=== PATIENT | male | born 1965 | race Caucasian/White ===

== ENCOUNTER 2018-08-05 12:09 | Inpatient (IN) | payer BC, SELFPAY ==
[2018-08-05] VITALS (50 sets, daily range): BP systolic 155–211; BP diastolic 67–98; PULSE 60–88; RESP 9–27; TEMP 36–36.5; O2SAT 79–99
--- NOTE | 2018-08-05 12:53 | W.ED.GENAD ---
Discharge Plan Disposition Patient Disposition: [facility] INPATIENT Condition: Stable Discharge Details Chief Complaint: Nk/Back Pain Clinical Impression: Intractable back pain, Intractable nausea and vomiting, Chronic kidney disease, Hyperglycemia, Dehydration Reason For Visit: SCIATICA, HYPERLYCEMIA Admit Date/Time: 08/05/18 18:36 Admit Provider: Hugh Love Attending Provider: Hugh Love Primary Care Provider: Adeola Villegas ED Provider: Donna Barba Discharge Data Discharge Date/Time-TO BE ENTERED AT DEPARTURE: 08/05/18 19:55 Medical Decision Making 52-year-old male with a history of diabetes with neuropathy, lumbar [place] [address] Mathews, history of sciatica, who presents left sided sciatica for the past 3 weeks after pulling on a post at home, getting progressively worse. Pain now worse in left calf. No cauda equina symptoms. He also admits to vomiting over the past few days due to pain. No relief with muscle relaxers, oxycodone, steroids after seen by PCP and at [facility]. Blood pressure hypertensive, 198/94. Has not taken his blood pressure medications today. May also be elevated due to pain. Remainder vitals within normal limits. Patient appears moderately uncomfortable due to pain. He has no focal deficits. He is neurovascularly intact. Differential diagnosis includes sciatica, musculoskeletal strain. Concern is also possible DKA, or HHNK due to persistent vomiting and not taking his diabetes medications. Glucose per EMS read as high, glucose here in ED read as high. Will place an IV, bolus IV fluids, morphine, Compazine, Valium p.o and will check screening labs of CBC, CMP, urinalysis. We will also check left lower extremity ultrasound due to worsening left calf pain, although I suspect this is likely from the sciatica and not a DVT. 1335 -- Labs reviewed -sodium 132, bicarb 26.1, anion gap 9, BUN 77, creatinine 3.79, glucose 751, urinalysis notes 300 protein and 1000 glucose and greater than 15 ketones. Will give 7 units insulin IV. BP still elevated at 199/91. Will give his daily dose of amlodipine. 1520 -- Pt states he had relief of pain with morphine/valium but pain returned after movement in radiology. Doppler ultrasound negative for DVT. We will give a dose of Dilaudid. 1650 -- Pt states he feels much better and is requesting to go home. We will recheck a BMP as accucheck after 1st liter still read as high. Pt received 2 Liters IVF. Pt is also requesting food. 173 --patient states with any movement, he becomes nauseous and has significant pain. Patient now states he feels like he cannot go home. Will give another dose of Compazine and Dilaudid. Will admit for pain control and intractable nausea. Repeat BMP glucose 491, Cr 3.38. 174 -- D/w Dr. Love - accepts pt for admission. HPI General Mode of arrival: EMS. Date/Time Provider Initiated Documentation: 08/05/18 12:26. Limitations to Documentation: no limitations. Information obtained by: patient. HPI Narrative: Patient is a 52-year-old male who presents to the ED with a complaint of sciatica pain on L side x 3 weeks since pulling on a post at home. Patient states the pain is in his left lower back, left buttock and radiates to his L leg. Pt states the L calf pain is now bothering him the most. Pt has been seen at PCP office by Dr. Greer last week and was given an unknown muscle relaxer without relief. Pt states he then was seen at [facility] last week for same and was given prednisone, oxycodone, and methacarbamol w/o relief. Pt states he has been vomiting up to 6x times for the past 2-3 days and has been unable to keep down most of his meds. Pt states he has had decreased appetite and has not taken his insulin for a few days. Glucose per EMS read as high. States he has not taken any of his regular meds today. He denies known fever, chest pain, shortness of breath, cough, abdominal pain, diarrhea, urinary or fecal incontinence, or leg weakness. Patient states he was able to ambulate to the bathroom today but with pain in his left leg. He does admit to a history of chronic neuropathy from his diabetes but states this is no worse than usual. He does also admit to urinary frequency. Also states that there is a plan for an MRI lumbar spine due to his history of previous back pain/surgery and now persistent left leg pain for the past [address] Cody through Adeola Villegas. Past medical history: DM, HTN, DM neuropathy, Chronic kidney disease Stage III - plan for possible renal transplant - next appointment with [facility] 09/16/18 to discuss Surgical history: Appendectomy, Cholecystectomy, Shoulder surgery, Lumbar fusion [address] Mathews Social history: Quit tobacco 3 weeks ago, Daily marijuana, Occasional alcohol use Meds: See list Allergies: See list PCP: Adeola Villegas Related Data Home Medications Medication Instructions Recorded Confirmed insulin syringe-needle U-100 [BD 03/21/13 02/02/18 Insulin Syringe] blood-glucose meter [FreeStyle #1 kit 03/24/13 Lite Meter] pen needle, diabetic #180 unit 03/24/13 lancets #300 ea 08/08/13 insulin aspart U-100 [Novolog 5 - 20 unit SQ DIRECTED #3 pen 10/19/13 Flexpen U-100 Insulin] insulin glargine [Lantus Solostar 45 unit SQ HS #3 pen 10/19/13 U-100 Insulin] lisinopril 10 mg PO DAILY #90 tab-cap 10/19/13 metformin 500 mg PO DAILY 08/27/15 02/02/18 pregabalin [Lyrica] 200 mg PO BID 08/27/15 08/05/18 furosemide 40 mg PO DAILY 07/30/17 08/05/18 amlodipine 10 mg PO DAILY 08/05/18 08/05/18 aspirin 81 mg PO DAILY 08/05/18 08/05/18 ferrous sulfate 650 mg PO DAILY 08/05/18 08/05/18 insulin detemir U-100 [Levemir 55 units SUBCUT HS 08/05/18 08/05/18 FlexTouch U-100 Insuln] methocarbamol 750 mg PO QID 08/05/18 08/05/18 prednisone 1 - 3 tab PO DIRECTED 08/05/18 08/05/18 Allergies Allergy/AdvReac Type Severity Reaction Status Date / Time clindamycin Allergy Mild HIVES Unverified 08/05/18 12:18 Penicillins Allergy Mild Unverified 08/05/18 12:18 sertraline AdvReac Mild Nausea Unverified 08/05/18 12:18 gabapentin AdvReac ANKLE EDEMA Unverified 08/05/18 12:18 General Stated Complaint: Nk/Back Pain MONIKA: 3 Review of Systems Review of Systems All systems reviewed & are unremarkable except as noted in HPI and below Constitutional Denies chills, Denies excessive sweating, Denies fatigue, Denies fever(s), Reports weakness and Denies weight loss Eyes Reports system reviewed and no additional complaints, except as docu and Denies blurry vision ENT Denies vertigo, Denies dizziness, Denies otalgia, Denies nasal congestion, Denies sore throat and Denies throat swelling Cardiovascular Denies chest pain, Denies syncope, Denies rapid heart rate and Denies dyspnea Respiratory Denies dyspnea Gastrointestinal Denies abdominal pain, Denies diarrhea and Reports vomiting Genitourinary Denies hematuria, Denies dysuria and Denies flank pain Musculoskeletal Reports back pain and Denies joint swelling Integumentary/Breasts Denies lesions and Denies rash Neurologic Denies behavioral changes, Denies confusion, Denies vertigo, Denies dizziness, Denies syncope and Reports weakness Psychiatric Denies behavioral changes, Denies confusion and Denies depression Endocrine Denies excessive sweating and Denies fatigue Hematologic/Lymphatic Denies easy bruising and Denies lymphadenopathy Allergic/Immunologic Denies throat swelling [facility] Medical History Chronic Kidney disease stage 3 Social History Smoking/Tobacco Use Status: Current-Occasional Surgical History Cholecystectomy Colonoscopy - MAC (10/08/16) Exam Const General: cooperative, healthy appearing and uncomfortable (moderately) Orientation: alert, awake and oriented x3 HENMT Head: normal to inspection Ears: hearing grossly normal bilaterally and external ears normal General nose exam: external nose normal Face and sinus: normal facial exam Mouth: mucous membranes dry Teeth and gingiva: dentition normal Throat: posterior oropharynx normal Eyes General: appearance normal, both eyes and all related structures Eyelids: eyelids normal EOM: EOM intact bilaterally Neck Neck: normal visual inspection Lymphatic: no lymphadenopathy noted Chest Chest: normal inspection of the chest Resp Effort & Inspection: normal respiratory effort and able to speak in complete sentences Auscultation: clear to auscultation bilaterally Cardio Rate: regular rate Rhythm: regular rhythm GI Inspection: normal to inspection Palpation: soft, not firm, no guarding, no hepatosplenomegaly, no masses and nontender Auscultation: normal bowel sounds Back/Spine/Pelvis Back: no CVA tenderness Thoracic/Lumbar Spine: paraspinal tenderness (Left lumbar) and No lumbar spinal tenderness Pelvis: buttock tenderness on the left Sacrum: no ecchymosis and no erythema Coccyx: no swelling Skin General skin exam: no rashes or lesions noted Neuro General: alert and awake Cognition: normal cognition Speech: speech normal Gait: normal gait Motor: muscle tone normal throughout and strength 5/5 throughout Sensory Exam: no sensory deficits noted DTR's: Rt Patellar: 0 (hypoactive), Lt Patellar: 0 (hypoactive), Rt Ankle: 0 (hypoactive) and Lt Ankle: 0 (hypoactive) Plantar Reflexes: Equivocal: bilateral Extrem General: normal to inspection, full ROM and normal capillary refill Psych Appearance: grossly normal Mental Status: mental status grossly normal Speech and Movement: speech and movement normal Affect: normal affect Thought Process: normal Course Laboratory Tests Range/Units 08/05/18 08/05/18 08/05/18 12:40 12:40 12:52 WBC (4.4-10.8) k/cumm 9.31 RBC (4.50-6.00) m/cumm 3.77 L Hgb (13.5-17.5) g/dL 11.3 L Hct (40.0-50.0) % 33.1 L MCV (80-95) fL 87.8 MCH (27.0-33.0) pg 30.0 MCHC (32.0-36.0) g/dL 34.1 RDW (11.8-14.1) % 12.5 Plt Count (130-400) x1000/uL 267 MPV (8.0-11.0) fL 12.1 H Immature Gran % 0.1 Neutrophils % 77.2 Lymphocytes % 13.0 Monocytes % 8.2 Eosinophils % 1.3 Basophils % 0.2 Absolute Neutrophils (1.2-6.7) k/cumm 7.19 H Absolute Lymphocytes (1.2-3.4) k/cumm 1.21 Absolute Monocytes (0.11-0.7) k/cumm 0.76 H Absolute Eosinophils (0.0-0.7) k/cumm 0.12 Absolute Basophils (0.0-0.2) k/cumm 0.02 Sodium (136-145) mmol/L 132 L Potassium (3.5-5.1) mmol/L 4.8 Chloride (98-107) mmol/L 96 L Carbon Dioxide (21.0-32.0) mmol/L 26.1 Anion Gap (3-11) mmol/L 9.9 BUN (7-18) mg/dL 77 H Creatinine (0.70-1.30) mg/dL 3.79 H* Estimated GFR/1.73 m2 (mL/min/1.73m2) 16.93 Glucose (70-100) mg/dL 751 H* Calcium (8.5-10.1) mg/dL 8.7 Total Bilirubin (0.2-1.0) mg/dL 0.4 AST (15-37) U/L 15 ALT (12-78) U/L 52 Alkaline Phosphatase (46-116) U/L 121 H Total Protein (6.4-8.2) g/dL 6.8 Albumin (3.4-5.0) g/dL 2.9 L Urine Color (Yellow) Yellow Urine Clarity Clear Urine pH (5-8) 5.5 Ur Specific [place] (1.005-1.025) 1.010 Urine Protein (Negative) mg/dL >=300 H Urine Ketones (Negative) mg/dL 15 H Urine Blood (Negative) Small H Urine Nitrite (Negative) Negative Urine Bilirubin (Negative) Negative Urine Urobilinogen (Up TO 0.2) EU/dL 0.2 Ur Leukocyte Esterase (Negative) Negative Urine RBC (0-2) 3-5 H Urine WBC (0-5) HPF 0-2 Ur Epithelial Cells (Negative) HPF Rare Urine Crystals (Negative) HPF Negative Urine Bacteria (Negative) HPF Few Urine Casts (Negative) LPF Negative Urine Mucus (Negative) Negative Urine Other (Negative) Negative Ur Culture Indicated? No Urine Glucose (Negative) mg/dL >=1000 H Range/Units 08/05/18 17:00 WBC (4.4-10.8) k/cumm RBC (4.50-6.00) m/cumm Hgb (13.5-17.5) g/dL Hct (40.0-50.0) % MCV (80-95) fL MCH (27.0-33.0) pg MCHC (32.0-36.0) g/dL RDW (11.8-14.1) % Plt Count (130-400) x1000/uL MPV (8.0-11.0) fL Immature Gran % Neutrophils % Lymphocytes % Monocytes % Eosinophils % Basophils % Absolute Neutrophils (1.2-6.7) k/cumm Absolute Lymphocytes (1.2-3.4) k/cumm Absolute Monocytes (0.11-0.7) k/cumm Absolute Eosinophils (0.0-0.7) k/cumm Absolute Basophils (0.0-0.2) k/cumm Sodium (136-145) mmol/L 135 L Potassium (3.5-5.1) mmol/L 4.4 Chloride (98-107) mmol/L 101 Carbon Dioxide (21.0-32.0) mmol/L 27.6 Anion Gap (3-11) mmol/L 6.4 BUN (7-18) mg/dL 71 H Creatinine (0.70-1.30) mg/dL 3.38 H Estimated GFR/1.73 m2 (mL/min/1.73m2) 19.32 Glucose (70-100) mg/dL 491 H D Calcium (8.5-10.1) mg/dL 8.5 Total Bilirubin (0.2-1.0) mg/dL AST (15-37) U/L ALT (12-78) U/L Alkaline Phosphatase (46-116) U/L Total Protein (6.4-8.2) g/dL Albumin (3.4-5.0) g/dL Urine Color (Yellow) Urine Clarity Urine pH (5-8) Ur Specific [place] (1.005-1.025) Urine Protein (Negative) mg/dL Urine Ketones (Negative) mg/dL Urine Blood (Negative) Urine Nitrite (Negative) Urine Bilirubin (Negative) Urine Urobilinogen (Up TO 0.2) EU/dL Ur Leukocyte Esterase (Negative) Urine RBC (0-2) Urine WBC (0-5) HPF Ur Epithelial Cells (Negative) HPF Urine Crystals (Negative) HPF Urine Bacteria (Negative) HPF Urine Casts (Negative) LPF Urine Mucus (Negative) Urine Other (Negative) Ur Culture Indicated? Urine Glucose (Negative) mg/dL Vital Signs Temperature 97.7 F 08/05/18 12:01 Pulse 82 08/05/18 12:01 Respiratory Rate 18 08/05/18 12:01 Blood Pressure 211/91 H 08/05/18 12:01 Pulse Oximetry 98 08/05/18 12:01 Temperature 97.7 F 08/05/18 12:01 Temperature Source Temporal Artery Scan 08/05/18 12:01 Pulse 82 08/05/18 12:01 Respiratory Rate 18 08/05/18 12:01 Respiratory Effort 08/05/18 12:16 Blood Pressure 211/91 H 08/05/18 12:01 Blood Pressure Position Supine 08/05/18 12:01 Pulse Oximetry 98 08/05/18 12:01 Oxygen Delivery Method Room Air 08/05/18 12:01 Oxygen Flow Rate 0 08/05/18 12:01 Pain Level 10 08/05/18 12:01
--- NOTE | 2018-08-05 12:59 | DI.US_ITS ---
SYMPTOMS/DIAGNOSIS: LEFT CALF PAIN X 2 WEEKS, ? DVT LEFT LOWER EXTREMITY ULTRASOUND: The femoral and popliteal veins, calf veins, as well as saphenous vein appear free of thrombus. No localized fluid collection or hematoma is seen. IMPRESSION: Negative left lower extremity ultrasound. No evidence of DVT.
[2018-08-05 13:04] LABS: Abs Immature Grans 0.01 k/cumm (0.0-0.09); Absolute Basophil Count 0.02 k/cumm (0.0-0.2); Absolute Eosinophil Count 0.12 k/cumm (0.0-0.7); Absolute Lymphocyte Count 1.21 k/cumm (1.2-3.4); Absolute Monocyte Count 0.76 k/cumm (0.11-0.7); Absolute Neutrophil Count 7.19 k/cumm (1.2-6.7); Basophils % 0.2; Eosinophils % 1.3; HCT 33.1 % (40.0-50.0); HGB 11.3 g/dL (13.5-17.5); Immature Grans % 0.1; Mean Corp. HGB Concentration 34.1 g/dL (32.0-36.0); Mean Corpuscular Volume 87.8 fL (80-95); Mean Platelet Volume 12.1 fL (8.0-11.0); Monocytes % 8.2; Neutrophils % 77.2; Platelet Count 267 x1000/uL (130-400); RBC 3.77 m/cumm (4.50-6.00); RBC Distribution Width 12.5 % (11.8-14.1); White Blood Cell Count 9.31 k/cumm (4.4-10.8)
[2018-08-05 13:07] LABS: Bilirubin Negative (Negative); Blood Small (Negative); Clarity Clear; Glucose >=1000 mg/dL (Negative); Ketones 15 mg/dL (Negative); Leukocyte Esterase Negative (Negative); Nitrite Negative (Negative); Urobilinogen 0.2 EU/dL (Up TO 0.2); pH 5.5 (5-8)
[2018-08-05] MEDS: MORPHine 10 MG/ML VIAL 4 MG IVP (13:14)
[2018-08-05 13:15] LABS: Bacteria Few HPF (Negative); C & S Indicated? No; Casts Negative LPF (Negative); Crystals Negative HPF (Negative); Epithelial Cells Rare HPF (Negative); Mucus Negative (Negative); Other Cells Negative (Negative); WBC 0-2 HPF (0-5)
[2018-08-05] MEDS: Normal Saline 1,000 ML 1000 ML IV ×2 (13:15→15:47)
[2018-08-05] MEDS: Prochlorperazine 10 MG/2 ML VIAL IVP ×2 (13:15→17:53)
[2018-08-05] MEDS: Diazepam 5 MG TAB PO (13:16)
[2018-08-05 13:19] LABS: ALT 52 U/L (12-78); AST 15 U/L (15-37); Albumin 2.9 g/dL (3.4-5.0); Alkaline Phosphatase 121 U/L (46-116); Anion Gap 9.9 mmol/L (3-11); BUN 77 mg/dL (7-18); Bilirubin, Total 0.4 mg/dL (0.2-1.0); CO2 26.1 mmol/L (21.0-32.0); Calcium 8.7 mg/dL (8.5-10.1); Chloride 96 mmol/L (98-107); Estimated GFR 16.93 (mL/min/1.73m2); Potassium 4.8 mmol/L (3.5-5.1); Sodium 132 mmol/L (136-145); Total Protein 6.8 g/dL (6.4-8.2)
[2018-08-05 13:30] LABS: Glucose 751 mg/dL (70-100)
[2018-08-05 13:31] LABS: CREATININE 3.79 mg/dL (0.70-1.30)
[2018-08-05] MEDS: Insulin REGULAR-Human 100 UNITS/ML UNIT 7 UNITS IV (13:54)
[2018-08-05] MEDS: amLODIPine 10 MG TAB PO (13:55)
[2018-08-05] MEDS: HYDROmorphone 2 MG/ML VIAL 1 MG IVP ×2 (15:46→17:53)
[2018-08-05 17:46] LABS: Anion Gap 6.4 mmol/L (3-11); BUN 71 mg/dL (7-18); CO2 27.6 mmol/L (21.0-32.0); CREATININE 3.38 mg/dL (0.70-1.30); Calcium 8.5 mg/dL (8.5-10.1); Chloride 101 mmol/L (98-107); Estimated GFR 19.32 (mL/min/1.73m2); Glucose 491 mg/dL (70-100); Potassium 4.4 mmol/L (3.5-5.1); Sodium 135 mmol/L (136-145)
--- NOTE | 2018-08-05 18:20 | W.PM.HP.N ---
Date of service: 08/05/18 Time of Service: 18:22 Assessment and Plan (1) Sciatica: Current visit: Yes Status: Acute Sciatica without overt deficits. Will continue IV Dilaudid as needed. From family it sounds like steroids were not helpful so I will not repeat that. Already has MRI scheduled and we will standby for that. Nausea is is nonspecific. May be a combination of opiate, reaction to pain and perhaps the hyperglycemia (note in this regard he is not acidotic). We will continue as needed antiemetics. As to the diabetes we will continue IV fluids and correction insulin. Will hold any standing dose insulin until we see where things settle out. Chief complaint sciatica. History of present illness: Patient is a 52-year-old male with history of diabetes, chronic renal insufficiency, neuropathy and prior history of sciatica. He has had some 3 weeks of left-sided sciatica, pain radiating from the buttock to the calf. He has failed medical management, including analgesics and steroids. He is scheduled for an MRI and 3 days. He reports that he has been having unrelenting pain over the last several days along with some nausea and has not been taking any of his regular medications he came to the emergency room where initial findings were of note for sugar of 751. He has received IV fluids, 7 units of regular and and several doses of Dilaudid Compazine. He feels somewhat better but anytime he moves the pain recurs and he does not feel he is able to go home. He is admitted for further evaluation and management. Past medical history: Diabetes, hypertension, neuropathy, chronic renal insufficiency, status post cholecystectomy. Allergies to gabapentin, Zoloft, clindamycin and penicillins... Medications Norvasc 10 daily aspirin 81 daily iron sulfate Lasix 40 daily insulin unknown dose lisinopril 10 daily metformin 500 daily Robaxin-750 4 times daily Lyrica 200 twice daily. Physical exam blood pressure 155/84 pulse 67 respirations 14 no temperature recorded. HEENT is unremarkable neck supple lungs clear heart regular rate and rhythm. Abdomen soft nontender. and rectal exams deferred there is no spinal tenderness lower extremities motor 5/5 and intact light touch. Review of Systems Review of Systems All systems reviewed & are unremarkable except as noted in HPI and below PFSH Medical History Chronic Kidney disease stage 3 Social History Smoking/Tobacco Use Status: Current-Occasional Surgical History Cholecystectomy Colonoscopy - MAC (10/08/16) Meds Home Medications Medication Instructions Recorded Confirmed Type insulin syringe-needle U-100 [BD 03/21/13 02/02/18 History Insulin Syringe] blood-glucose meter [FreeStyle #1 kit 03/24/13 History Lite Meter] pen needle, diabetic #180 unit 03/24/13 History Test Strips 1 ea MISCELLANEOUS TID #270 strip 08/08/13 02/02/18 Clinic lancets #300 ea 08/08/13 History insulin aspart U-100 [Novolog 5 - 20 unit SQ DIRECTED #3 pen 10/19/13 History Flexpen U-100 Insulin] insulin glargine [Lantus Solostar 45 unit SQ HS #3 pen 10/19/13 History U-100 Insulin] lisinopril 10 mg PO DAILY #90 tab-cap 10/19/13 History metformin 500 mg PO DAILY 08/27/15 02/02/18 History pregabalin [Lyrica] 200 mg PO BID 08/27/15 08/05/18 History furosemide 40 mg PO DAILY 07/30/17 08/05/18 History amlodipine 10 mg PO DAILY 08/05/18 08/05/18 History aspirin 81 mg PO DAILY 08/05/18 08/05/18 History ferrous sulfate 650 mg PO DAILY 08/05/18 08/05/18 History insulin detemir U-100 [Levemir 55 units SUBCUT HS 08/05/18 08/05/18 History FlexTouch U-100 Insuln] methocarbamol 750 mg PO QID 08/05/18 08/05/18 History prednisone 1 - 3 tab PO DIRECTED 08/05/18 08/05/18 History Allergies Allergy/AdvReac Type Severity Reaction Status Date / Time clindamycin Allergy Mild HIVES Unverified 08/05/18 12:18 Penicillins Allergy Mild Unverified 08/05/18 12:18 sertraline AdvReac Mild Nausea Unverified 08/05/18 12:18 gabapentin AdvReac ANKLE EDEMA Unverified 08/05/18 12:18 Results Labs : 08/05/18 12:40 08/05/18 17:00 Laboratory Results - last 24 hr 08/05/18 08/05/18 08/05/18 12:40 12:40 12:52 WBC 9.31 RBC 3.77 L Hgb 11.3 L Hct 33.1 L MCV 87.8 MCH 30.0 MCHC 34.1 RDW 12.5 Plt Count 267 MPV 12.1 H Immature Gran % 0.1 Neutrophils % 77.2 Lymphocytes % 13.0 Monocytes % 8.2 Eosinophils % 1.3 Basophils % 0.2 Absolute Neutrophils 7.19 H Absolute Lymphocytes 1.21 Absolute Monocytes 0.76 H Absolute Eosinophils 0.12 Absolute Basophils 0.02 Sodium 132 L Potassium 4.8 Chloride 96 L Carbon Dioxide 26.1 Anion Gap 9.9 BUN 77 H Creatinine 3.79 H* Estimated GFR/1.73 m2 16.93 Glucose 751 H* Calcium 8.7 Total Bilirubin 0.4 AST 15 ALT 52 Alkaline Phosphatase 121 H Total Protein 6.8 Albumin 2.9 L Urine Color Yellow Urine Clarity Clear Urine pH 5.5 Ur Specific [place] 1.010 Urine Protein >=300 H Urine Ketones 15 H Urine Blood Small H Urine Nitrite Negative Urine Bilirubin Negative Urine Urobilinogen 0.2 Ur Leukocyte Esterase Negative Urine RBC 3-5 H Urine WBC 0-2 Ur Epithelial Cells Rare Urine Crystals Negative Urine Bacteria Few Urine Casts Negative Urine Mucus Negative Urine Other Negative Ur Culture Indicated? No Urine Glucose >=1000 H 08/05/18 17:00 WBC RBC Hgb Hct MCV MCH MCHC RDW Plt Count MPV Immature Gran % Neutrophils % Lymphocytes % Monocytes % Eosinophils % Basophils % Absolute Neutrophils Absolute Lymphocytes Absolute Monocytes Absolute Eosinophils Absolute Basophils Sodium 135 L Potassium 4.4 Chloride 101 Carbon Dioxide 27.6 Anion Gap 6.4 BUN 71 H Creatinine 3.38 H Estimated GFR/1.73 m2 19.32 Glucose 491 H D Calcium 8.5 Total Bilirubin AST ALT Alkaline Phosphatase Total Protein Albumin Urine Color Urine Clarity Urine pH Ur Specific [place] Urine Protein Urine Ketones Urine Blood Urine Nitrite Urine Bilirubin Urine Urobilinogen Ur Leukocyte Esterase Urine RBC Urine WBC Ur Epithelial Cells Urine Crystals Urine Bacteria Urine Casts Urine Mucus Urine Other Ur Culture Indicated? Urine Glucose Last Vital Signs Temp 36 C L 08/05/18 17:04 Pulse 67 10/12/18 18:01 Resp 14 08/05/18 17:50 BP 155/84 H 08/05/18 18:01 Pulse Ox 94 L 08/05/18 18:01
[2018-08-05] MEDS: Pregabalin 50 MG CAP 200 MG PO (20:50)
[2018-08-05] MEDS: Insulin Aspart 300 UNITS/3 ML PEN SC (20:51)
[2018-08-05] MEDS: Ondansetron 4 MG/2 ML VIAL IVP (20:52)
[2018-08-06] MEDS: Insulin Aspart 300 UNITS/3 ML PEN SC ×7 (00:14→23:58)
[2018-08-06] MEDS: HYDROmorphone 2 MG/ML VIAL 1 MG IVP ×4 (00:24→16:57)
[2018-08-06] MEDS: Normal Saline Flush 10 ML SYR IVP ×5 (00:31→16:59)
[2018-08-06] MEDS: Normal Saline 1,000 ML 125 ML IV (00:53)
[2018-08-06 00:57] VITALS: BP 164/83; PULSE 68; RESP 18; TEMP 36.6; O2SAT 96
[2018-08-06] MEDS: Ondansetron 4 MG/2 ML VIAL IVP ×3 (04:31→16:58)
[2018-08-06 04:50] VITALS: BP 168/73; PULSE 68; RESP 16; TEMP 37.1; O2SAT 94
[2018-08-06 07:20] VITALS: BP 172/84; PULSE 74; RESP 22; TEMP 36.8; O2SAT 98
--- NOTE | 2018-08-06 08:09 | PDOC.CMIN ---
- If Service Date Differs Date of service: 08/06/18 Time of Service: 08:09 Care Management Initial Assess REASON FOR HOSPITALIZATION:: Sciatica, Hyperglycemia PAST MEDICAL HISTORY/PAST SURGICAL HISTORY:: DM, CKD, Sciatica, PREVIOUS FUNCTIONAL STATUS/SOCIAL/FAMILY SUPPORTS:: Gerson lives with his spouse in [place], [place]. 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 He has two grown children. He is independent with ADL's and transportation. CURRENT FUNCTIONAL STATUS:: Gerson is lying flat on his back he is struggling with nausea. He reports that he has been vomiting. He is not sure if the pain medication is making it worse. MD is aware of his nausea and adjusting medication to treat. Gerson states that he has been having trouble obtaining his test strips for his glucometer. He states his insurance is not covering them. He reports not checking his fingerstick due to the cost. CM will follow up Gerson could have benefits through [facility] as he is a [facility] patient. CM will follow up with patient and his spouse once she returns and he is feeling better. ADVANCE DIRECTIVES:: Xander reports they are done, CM is unable to identify in the system. CM to provide a new packet at the request of patient. Has patient been provided with information about the portal?: Yes Did the patient sign up for the portal?: No CODE STATUS:: Full Code INSURANCE COVERAGE / FINANCIAL ISSUES:: [employer]BS CURRENT HOME/COMMUNITY SERVICES/EQUIPMENT:: Glucometer PRIMARY CARE PHYSICIAN:: Adeola Villegas APRN POTENTIAL DISCHARGE NEEDS:: Follow up appointment with primary care, referral to community [facility] pharmacy, chronic care coordiantor, and DM educator PATIENT/FAMILY EDUCATION NEEDS:: Discharge education, limitation and follow up plan of care ANTICIPATED BARRIERS TO DISCHARGE:: None TRANSPORTATION:: Via private car with spouse at time of discharge. PLAN:: Gerson will discharge home when medically ready per provider. He is currently receiving IV dilaudid for pain control and IV fluids. His nausea is being treated with antimetics. CM to send a referral to PCP chronic respiratory care assistant and DM educator consult to be ordered. He has a scheduled MRI for Wednesday. CM will continue to provide support to pt and care team discharge planning.
[2018-08-06] MEDS: amLODIPine 10 MG TAB PO (11:53)
[2018-08-06] MEDS: Pregabalin 50 MG CAP 200 MG PO (11:53)
[2018-08-06] MEDS: Metoclopramide 10 MG/2 ML VIAL IVP (11:54)
[2018-08-06] MEDS: predniSONE 20 MG TAB 40 MG PO ×2 (11:54→19:24)
--- NOTE | 2018-08-06 12:16 | PHARADMIT ---
Addendum entered by Oksana Tracey 08/07/18 13:33: Pharmacy Note Subjective PT states doing well, less N/V..?associated with pain Pt wants to go home Objective BP 185/73, WBC 12.24, SCr 3.36, H/H 9.7/29.1, BG 259 Assessment Elevated WBC due to Prednisone for back pain CrCl~26ml/min slight improvement MD mentioned started home dose of Lisinopril, but pt rec'd Terazosin 2mg x1 dose today Wanting to guaic stool when able to Hydromorphone IV changed to Percocet Lyrica dose was decreased based on renal function, but only slight decrease Methocarbamol home med added bowel meds added Levemir increased getting both Omeprazole and Ranitidine....intentional Heparin SC started for DVT prophylaxis Plan MD mentions CT scan to be sure abdominal pain isn't just secondary to pain, potential discharge Sun evening or Wednesday Original Note: Admission Pharmacy Clinical Review SCIATICA, HYPERGLYCEMIA Code Status Full Code Current Weight 85.2 kg Renally Cleared and Narrow Therapeutic Index Meds CrCl~26ml/min (Lyrica dose entered as 200mg po BID....Uptodate recommend NTE 150mg/day)...will let MD know QTc Value / Action Taken BP Control, Fever BP 172/84 Afebrile Electrolytes reviewed within range DVT Prophylaxis NO anticoagulation started Opiate Usage / Scheduled Bowel Regimen Ordered Hydromorphone IVP/prn-NO BOWEL MEDS Plt/SCr for Heparin / Enoxaparin Plt 267 SCr 3.38 INR for Warfarin H/H stable, WBC/Bands H/H 11.3/33.1 WBC 9.31 Antibiotic appropriateness n/a Cultures and Sensitivities n/a Surgical ABX d/c within 24 hr DM control / Insulin Dosing FSBS 267 (Levemir starting 1/2 home dose, Novolog scale) Last A1c 06/2016 was 7.1 Heart Failure (Check EF%) (JUAN's, B-Block, Diuretics) Amlodipine IV to PO Switch Home Meds Reviewed Home Meds Not Ordered ASA, Ferrous sulfate, Furosemide, Lisinopril, Metformin XR, Methocarbamol, Comments N/V with pain-sugars are off, not completely sure he's been taking insulin properly at home dehydrated-getting IVF's Reglan/Zofran for N/V Prednisone assumed for anti-inflammatory for sciatica pain which will worsen blood sugars....follow FSBS and insulin coverage Does have Lyrica ordered...checking dose LE ultrasound: ruled out DVT Pharmacy Note Subjective Objective Assessment Plan
--- NOTE | 2018-08-06 12:34 | PT.INIE ---
Date of service: 08/06/18 Time of Service: 11:50 PT Notes Inpatient Physical Therapy Evaluation Date: 08/06/2018 Referring Doctor: Dr. Khan PT Orders: PT CONSULT: Intractable back pain with sciatica Precautions: Standard Patient Profile/Admitting Diagnosis: Patient admitted from the emergency department for management of severe back pain, with symptoms extending down the left lower extremity to the level of the calf. He had a previous course of prednisone, without symptom reduction. His symptoms are complicated by persistent vomiting, which has been present for 3 days. PMHX: Diabetes, chronic kidney disease, long history of back pain. Patient is status post lumbar spine surgery, although is unable to recall the specifics of this. This was performed by Dr. Workman daughter he estimates about 3 years ago. Social History/Home Situation: Patient lives independently. States that he was trying to pull out a post just prior to his injury. He does not typically use an assistive device, and is fully independent with ADLs. Equipment Owned/DME: None Subjective: Patient is lying in bed at initiation of session. He is agreeable to PT intervention, although reports severe nausea. He states that he was able to walk to the bathroom with his just prior to our session. He states that this did not increase his pain, however it did increase his nausea. His primary pain complaints are in the left calf and left buttock. He states that this is the most severe pain he has had since his back surgery. He denies any feeling of weakness, or bowel or bladder changes. No numbness or tingling. Objective: General Observation: Patient is slow and cautious with active movements. He requires several breaks due to vomiting. No lines. Mental Status: Alert and oriented x3 Pain: 4/10 ROM: Right Upper Extremity: Within functional limits Left Upper Extremity: Within functional limits Right Lower Extremity: Hip flexion allows 120 degrees. External rotation to 50 degrees. Knee motion is full and pain-free. Left Lower Extremity: Hip flexion allows 120 degrees. External rotation to 50 degrees. Knee motion is full and pain-free. Trunk motion is assessed in seated position. He has full trunk flexion, without exacerbation of pain symptoms. Rotation is full and pain-free. Trunk extension is assessed in prone position, where he tolerates 20 degrees, with mild pain reduction. Strength: Right Upper Extremity: Grossly 5/5 Left Upper Extremity: Grossly 5/5 Right Lower Extremity: Quads 5/5, hamstrings 4/5, ankle dorsiflexion 5/5, EHL 3+/5 Left Lower Extremity: Quads 5/5, hamstrings 4/5, ankle dorsiflexion 5/5, EHL 3+/5 Sensation: Intact throughout the lower extremities Neuro: Dermatomes and myotomes are within normal limits. DTRs are 2+ for the patella tendon reflex bilaterally, 1+ for the Achilles tendon reflex bilaterally. He has a positive slump test left greater than right. He has a positive modified SLR on the left, assessed in 90/90 position; patient has sharp reproduction of posterior hip and calf pain with knee extension beyond 90 degrees of flexion. He gets symptom reduction with prone press up activities, as noted below. Bed Mobility/Transfers: Rolling: Independent Supine to sit: Independent, with head of bed at 0 degrees Sit to supine: Independent, with head of bed at 0 degrees Sit to stand: Supervision Stand to sit: Supervision Gait: Patient ambulates 5 feet with supervision, no assistive device. Balance: Static Sitting: Normal Dynamic Sitting: Normal Static Standing: Good Dynamic Standing: good Special Tests: (+) slump test bilat. (+) modified SLR left. Mobility Limitations Standardized Measure [facility] AM-PAC 6 clicks Basic Mobility Inpatient Short Form: Raw Score: 21 Standardized Score: 50.25 CMS Score: 29% CMS Modifier: CJ Informed Consent/Education: Patient instructed in purpose of PT consult and plan of care. Assessment: Patient is a 52 year old male referred to physical therapy services with the diagnosis of intractable low back pain with sciatica. Patient presents with clinical signs and symptoms consistent with acute on chronic low back, with left lower extremity radiculopathy. Although he has significant nerve tension, he not demonstrating any neurological deficit at this time, and primary PT goals are for pain reduction in order to allow patient to resume his normally active lifetyle. He currently demonstrates the following impairment level findings: 1. Positive nerve tension 2. Severe radicular pain 3. Decreased activity tolerance due to pain severity Impairments are contributing to the following functional limitations: 1. Unable to tolerate community distance ambulation due to pain severity 2. Unable to perform ADLs due to pain severity [facility] score: 29% deficit Patient is assessed as a [x] Moderate 47779 complexity based on the following: History: 52 year old male with acute on chronic low back pain with left lower extremity radiculopathy, in the presence of poorly controlled diabetes and new onset vomiting. Examination: functional limitations as noted above Presentation: evolving Decision Making: moderate complexity Goals: Goals X1 week 1. Supine-Sit: Independent 2. Sit-Supine : Independent 3. Sit-Stand : Independent 4. Stand-Sit: Independent 5. Bed-Chair: Independent 6. Chair-Bed : Independent 7. Gait : Independent x 300' 8. Stairs : Independent 9. Independent with home exercise program : Independent self-management techniques for management of acute sypmtoms Plan of Care/Treatment Plan: 1-2x/day, 7 days/week x 1 week. Plan of care has been reviewed with the [employer] MACHINE OPERATOR providing the service under Physical Therapy direction. Initiate Physical Therapy intervention for strengthening, bed mobility, transfers, gait, stairs, balance training, use of assistive device. Will include instruction in progressive extension based activities, as patient is able to tolerate. Will also incorporate manual stretching to the posterior hip and lumbar musculature, and introduce manual traction via long axis distraction for pain reduction. Will instruct him in early core stabilization and self-mobilization techniques prior to discharge. DISCHARGE RECOMMENDATIONS: home, with outpatient PT TREATMENT CODE/TIME: 91945, 11:50-12:30 G Codes in the area mobility of walking and moving around: current status [id number]; projected status GP [id number]. Disclaimer: This note was created using [employer] voice recognition software. It was reviewed for major content. However, there may be multiple small discrepancies and errors due to the voice recognition aspects of the software.
--- NOTE | 2018-08-06 12:37 | IN_ITS ---
Date of service: 08/06/18 Time of Service: 11:50 PT Notes Inpatient Physical Therapy Evaluation Date: 08/06/2018 Referring Doctor: Dr. Khan PT Orders: PT CONSULT: Intractable back pain with sciatica Precautions: Standard Patient Profile/Admitting Diagnosis: Patient admitted from the emergency department for management of severe back pain, with symptoms extending down the left lower extremity to the level of the calf. He had a previous course of prednisone, without symptom reduction. His symptoms are complicated by persistent vomiting, which has been present for 3 days. PMHX: Diabetes, chronic kidney disease, long history of back pain. Patient is status post lumbar spine surgery, although is unable to recall the specifics of this. This was performed by Dr. Workman daughter he estimates about 3 years ago. Social History/Home Situation: Patient lives independently. States that he was trying to pull out a post just prior to his injury. He does not typically use an assistive device, and is fully independent with ADLs. Equipment Owned/DME: None Subjective: Patient is lying in bed at initiation of session. He is agreeable to PT intervention, although reports severe nausea. He states that he was able to walk to the bathroom with his just prior to our session. He states that this did not increase his pain, however it did increase his nausea. His primary pain complaints are in the left calf and left buttock. He states that this is the most severe pain he has had since his back surgery. He denies any feeling of weakness, or bowel or bladder changes. No numbness or tingling. Objective: General Observation: Patient is slow and cautious with active movements. He requires several breaks due to vomiting. No lines. Mental Status: Alert and oriented x3 Pain: 4/10 ROM: Right Upper Extremity: Within functional limits Left Upper Extremity: Within functional limits Right Lower Extremity: Hip flexion allows 120 degrees. External rotation to 50 degrees. Knee motion is full and pain-free. Left Lower Extremity: Hip flexion allows 120 degrees. External rotation to 50 degrees. Knee motion is full and pain-free. Trunk motion is assessed in seated position. He has full trunk flexion, without exacerbation of pain symptoms. Rotation is full and pain-free. Trunk extension is assessed in prone position, where he tolerates 20 degrees, with mild pain reduction. Strength: Right Upper Extremity: Grossly 5/5 Left Upper Extremity: Grossly 5/5 Right Lower Extremity: Quads 5/5, hamstrings 4/5, ankle dorsiflexion 5/5, EHL 3+ /5 Left Lower Extremity: Quads 5/5, hamstrings 4/5, ankle dorsiflexion 5/5, EHL 3+/ 5 Sensation: Intact throughout the lower extremities Neuro: Dermatomes and myotomes are within normal limits. DTRs are 2+ for the patella tendon reflex bilaterally, 1+ for the Achilles tendon reflex bilaterally. He has a positive slump test left greater than right. He has a positive modified SLR on the left, assessed in 90/90 position; patient has sharp reproduction of posterior hip and calf pain with knee extension beyond 90 degrees of flexion. He gets symptom reduction with prone press up activities, as noted below. Bed Mobility/Transfers: Rolling: Independent Supine to sit: Independent, with head of bed at 0 degrees Sit to supine: Independent, with head of bed at 0 degrees Sit to stand: Supervision Stand to sit: Supervision Gait: Patient ambulates 5 feet with supervision, no assistive device. Balance: Static Sitting: Normal Dynamic Sitting: Normal Static Standing: Good Dynamic Standing: good Special Tests: (+) slump test bilat. (+) modified SLR left. Mobility Limitations Standardized Measure [facility] AM-PAC 6 clicks Basic Mobility Inpatient Short Form: Raw Score: 21 Standardized Score: 50.25 CMS Score: 29% CMS Modifier: CJ Informed Consent/Education: Patient instructed in purpose of PT consult and plan of care. Assessment: Patient is a 52 year old male referred to physical therapy services with the diagnosis of intractable low back pain with sciatica. Patient presents with clinical signs and symptoms consistent with acute on chronic low back, with left lower extremity radiculopathy. Although he has significant nerve tension, he not demonstrating any neurological deficit at this time, and primary PT goals are for pain reduction in order to allow patient to resume his normally active lifetyle. He currently demonstrates the following impairment level findings: 1. Positive nerve tension 2. Severe radicular pain 3. Decreased activity tolerance due to pain severity Impairments are contributing to the following functional limitations: 1. Unable to tolerate community distance ambulation due to pain severity 2. Unable to perform ADLs due to pain severity [facility] score: 29% deficit Patient is assessed as a [x] Moderate 67012 complexity based on the following : History: 52 year old male with acute on chronic low back pain with left lower extremity radiculopathy, in the presence of poorly controlled diabetes and new onset vomiting. Examination: functional limitations as noted above Presentation: evolving Decision Making: moderate complexity Goals: Goals X1 week 1. Supine-Sit: Independent 2. Sit-Supine : Independent 3. Sit-Stand : Independent 4. Stand-Sit: Independent 5. Bed-Chair: Independent 6. Chair-Bed : Independent 7. Gait : Independent x 300' 8. Stairs : Independent 9. Independent with home exercise program : Independent self-management techniques for management of acute sypmtoms Plan of Care/Treatment Plan: 1-2x/day, 7 days/week x 1 week. Plan of care has been reviewed with the [employer] OPERATOR providing the service under Physical Therapy direction. Initiate Physical Therapy intervention for strengthening, bed mobility, transfers, gait, stairs, balance training, use of assistive device. Will include instruction in progressive extension based activities, as patient is able to tolerate. Will also incorporate manual stretching to the posterior hip and lumbar musculature, and introduce manual traction via long axis distraction for pain reduction. Will instruct him in early core stabilization and self-mobilization techniques prior to discharge. DISCHARGE RECOMMENDATIONS: home, with outpatient PT TREATMENT CODE/TIME: 16142, 11:50-12:30 G Codes in the area mobility of walking and moving around: current status [id number]; projected status GP [id number]. Disclaimer: This note was created using [employer] voice recognition software. It was reviewed for major content. However, there may be multiple small discrepancies and errors due to the voice recognition aspects of the software.
--- NOTE | 2018-08-06 15:21 | PGE_ITS ---
Assessment and Plan (1) Sciatica: Current visit: Yes Status: Acute Pre-existing condition with current acute flare failing conservative outpatient management. No red flags with patient denying any urinary or bowel changes, saddle anesthesia, or LE weakness at this time. Continue pain control with IV Dilaudid for now, as well as antiemetics. Initiate benzo therapy and restart home regimen of muscle relaxer. Start oral prednisone as well. Physical therapy consult. Will monitor, and plan on obtaining MRI in 2 days either as inpatient or following discharge if patient's symptoms improve. (2) Diabetes mellitus: Current visit: Yes Status: Chronic Restart basal insulin at half dose, and titrate as patient begins to tolerate oral intake. Continue sliding scale coverage. Metformin on hold. (3) Hypertension: Current visit: Yes Status: Chronic Continue CCB therapy. JUAN-I currently on hold. Patient also chronically on JUAN-I, also on hold. Monitor blood pressure. (4) Peripheral neuropathy: Current visit: Yes Status: Chronic Decrease Lyrica to 150mg for renal dosing. (5) CKD (chronic kidney disease): Current visit: Yes Status: Chronic Noted. Current creatinine appears to be at baseline. (6) DVT prophylaxis: Current visit: Yes Status: Acute Initiate SC Heparin. Subjective Interval history since last seen: 52-year-old male with history of Insulin depended diabetes, chronic renal insufficiency, and neuropathy admitted from [facility] Emergency Department on 08/05/2018 with intractable Sciatica type pain. Mr. Bruner has a history of prior sciatica, and reported a 3 week current history of left-sided sciatica pain radiating from his buttock to the calf. He has failed medical management, including analgesics and steroids. He is scheduled for an MRI as an outpatient in 2 days. He reports that he has been having unrelenting pain prior to his admission, along with some nausea that has led to decreased oral intake and failure to take insulin. Work-up in the emergency department was noteworthy for an initial blood sugar of over 700, but without significant electrolyte derangement otherwise. Following admission the patient received IVFs and sliding scale insulin coverage , as well as pain medication and antiemetics. He currently reports improvement in his overall symptoms. No other events reported. Exam Narrative Exam Narrative: General: Patient appears uncomfortable but in no acute distress , AAOX3 Neck: Supple CV: Regular, nontachycardic, S1S2, No rubs, murmurs, or gallops. Pulmonary: Clear to auscultation bilaterally, no crackles, wheezing, or rhonchi Abdomen: + Bowel Sounds, soft, nontender, nondistended Vascular: No lower extremity edema Musculoskeletal: Deferred due to significant patient discomfort. Psych: Normal mood and affect. Objective Objective Clinical Data: Abnormal lab results 08/05/18 Range/Units 17:00 Sodium 135 L (136-145) mmol/L BUN 71 H (7-18) mg/dL Creatinine 3.38 H (0.70-1.30) mg/dL Glucose 491 H D (70-100) mg/dL Vital Signs Temperature 36.8 C 08/06/18 07:20 Temperature Source Tympanic 08/06/18 07:20 Pulse 74 08/06/18 07:20 Pulse Rhythm Regular 08/06/18 08:30 Pulse 69 08/05/18 19:45 Respiratory Rate 22 08/06/18 07:20 Respiratory Effort Non-Labored 08/06/18 08:30 Respiratory Depth Normal 08/06/18 08:30 Respiratory Pattern Normal 08/06/18 08:30 Blood Pressure 172/84 H 08/06/18 07:20 Blood Pressure Mean 102 08/05/18 19:45 Blood Pressure Position Supine 08/05/18 12:01 Pulse Oximetry 98 08/06/18 07:20 Oxygen Delivery Method Room Air 08/06/18 07:20 Oxygen Flow Rate 0 08/06/18 07:20 Pain Level 7 08/06/18 08:48 Comment 08/06/18 04:50 Intake & Output 08/05/18 08/06/18 08/06/18 23:59 11:59 23:59 Intake Total 1000 / 1000 1970 / 1970 360 / 360 Output Total 1300 / 1300 Balance 1000 / 1000 670 / 670 360 / 360 Weight 85.2 kg Intake: IV 1000 / 1000 1000 / 1000 Oral 970 / 970 360 / 360 Output: Urine 800 / 800 Emesis 500 / 500 Other: Urine Color Yellow Urine Appearance Clear Clear Urine Odor None Emesis Description Bile Voiding Methods Urinal Laboratory Results WBC 9.31 k/cumm (4.4-10.8) 08/05/18 12:40 RBC 3.77 m/cumm (4.50-6.00) L 08/05/18 12:40 Hgb 11.3 g/dL (13.5-17.5) L 08/05/18 12:40 Hct 33.1 % (40.0-50.0) L 08/05/18 12:40 MCV 87.8 fL (80-95) 08/05/18 12:40 MCH 30.0 pg (27.0-33.0) 08/05/18 12:40 MCHC 34.1 g/dL (32.0-36.0) 08/05/18 12:40 RDW 12.5 % (11.8-14.1) 08/05/18 12:40 Plt Count 267 x1000/uL (130-400) 08/05/18 12:40 MPV 12.1 fL (8.0-11.0) H 08/05/18 12:40 Immature Gran % 0.1 08/05/18 12:40 Neutrophils % 77.2 08/05/18 12:40 Lymphocytes % 13.0 08/05/18 12:40 Monocytes % 8.2 08/05/18 12:40 Eosinophils % 1.3 08/05/18 12:40 Basophils % 0.2 08/05/18 12:40 Absolute Neutrophils 7.19 k/cumm (1.2-6.7) H 08/05/18 12:40 Absolute Lymphocytes 1.21 k/cumm (1.2-3.4) 08/05/18 12:40 Absolute Monocytes 0.76 k/cumm (0.11-0.7) H 08/05/18 12:40 Absolute Eosinophils 0.12 k/cumm (0.0-0.7) 08/05/18 12:40 Absolute Basophils 0.02 k/cumm (0.0-0.2) 08/05/18 12:40 Sodium 135 mmol/L (136-145) L 08/05/18 17:00 Potassium 4.4 mmol/L (3.5-5.1) 08/05/18 17:00 Chloride 101 mmol/L (98-107) 08/05/18 17:00 Carbon Dioxide 27.6 mmol/L (21.0-32.0) 08/05/18 17:00 Anion Gap 6.4 mmol/L (3-11) 08/05/18 17:00 BUN 71 mg/dL (7-18) H 08/05/18 17:00 Creatinine 3.38 mg/dL (0.70-1.30) H 08/05/18 17:00 Estimated GFR/1.73 m2 19.32 (mL/min/1.73m2) 08/05/18 17:00 Glucose 491 mg/dL (70-100) H D 08/05/18 17:00 Calcium 8.5 mg/dL (8.5-10.1) 08/05/18 17:00 Total Bilirubin 0.4 mg/dL (0.2-1.0) 08/05/18 12:40 AST 15 U/L (15-37) 08/05/18 12:40 ALT 52 U/L (12-78) 08/05/18 12:40 Alkaline Phosphatase 121 U/L (46-116) H 08/05/18 12:40 Total Protein 6.8 g/dL (6.4-8.2) 08/05/18 12:40 Albumin 2.9 g/dL (3.4-5.0) L 08/05/18 12:40 Urine Color Yellow (Yellow) 08/05/18 12:52 Urine Clarity Clear 08/05/18 12:52 Urine pH 5.5 (5-8) 08/05/18 12:52 Ur Specific [place] 1.010 (1.005-1.025) 08/05/18 12:52 Urine Protein >=300 mg/dL (Negative) H 08/05/18 12:52 Urine Ketones 15 mg/dL (Negative) H 08/05/18 12:52 Urine Blood Small (Negative) H 08/05/18 12:52 Urine Nitrite Negative (Negative) 08/05/18 12:52 Urine Bilirubin Negative (Negative) 08/05/18 12:52 Urine Urobilinogen 0.2 EU/dL (Up TO 0.2) 08/05/18 12:52 Ur Leukocyte Esterase Negative (Negative) 08/05/18 12:52 Urine RBC 3-5 (0-2) H 08/05/18 12:52 Urine WBC 0-2 HPF (0-5) 08/05/18 12:52 Ur Epithelial Cells Rare HPF (Negative) 08/05/18 12:52 Urine Crystals Negative HPF (Negative) 08/05/18 12:52 Urine Bacteria Few HPF (Negative) 08/05/18 12:52 Urine Casts Negative LPF (Negative) 08/05/18 12:52 Urine Mucus Negative (Negative) 08/05/18 12:52 Urine Other Negative (Negative) 08/05/18 12:52 Ur Culture Indicated? No 08/05/18 12:52 Urine Glucose >=1000 mg/dL (Negative) H 08/05/18 12:52
[2018-08-06 16:44] VITALS: BP 165/83; PULSE 78; RESP 22; TEMP 37.5; O2SAT 95
[2018-08-06] MEDS: Pregabalin 50 MG CAP 150 MG PO (19:24)
[2018-08-06] MEDS: Docusate Sodium 100 MG CAP PO (19:24)
[2018-08-06] MEDS: Diazepam 2 MG TAB PO (19:24)
[2018-08-06] MEDS: Heparin 5,000 UNITS/ML VIAL 5000 UNITS SC (19:25)
[2018-08-06] MEDS: Methocarbamol 750 MG TAB PO (21:35)
[2018-08-06] MEDS: Senna TAB 2 TAB PO (22:00)
[2018-08-06 23:58] VITALS: BP 144/74; PULSE 80; RESP 18; TEMP 37.3; O2SAT 96
[2018-08-07] MEDS: Heparin 5,000 UNITS/ML VIAL 5000 UNITS SC ×3 (00:01→16:01)
[2018-08-07] MEDS: Insulin Aspart 300 UNITS/3 ML PEN SC ×3 (04:08→11:56)
[2018-08-07 06:15] LABS: HCT 29.1 % (40.0-50.0); HGB 9.7 g/dL (13.5-17.5); Mean Corp. HGB Concentration 33.3 g/dL (32.0-36.0); Mean Corpuscular Hemoglobin 29.5 pg (27.0-33.0); Mean Corpuscular Volume 88.4 fL (80-95); Mean Platelet Volume 11.8 fL (8.0-11.0); Platelet Count 252 x1000/uL (130-400); RBC 3.29 m/cumm (4.50-6.00); RBC Distribution Width 12.5 % (11.8-14.1); White Blood Cell Count 12.24 k/cumm (4.4-10.8)
[2018-08-07 07:10] VITALS: BP 199/92; PULSE 77; RESP 18; TEMP 37.2; O2SAT 95
[2018-08-07 08:10] LABS: Anion Gap 7.8 mmol/L (3-11); BUN 60 mg/dL (7-18); CO2 25.2 mmol/L (21.0-32.0); CREATININE 3.36 mg/dL (0.70-1.30); Calcium 8.3 mg/dL (8.5-10.1); Chloride 108 mmol/L (98-107); Estimated GFR 19.45 (mL/min/1.73m2); Glucose 259 mg/dL (70-100); Potassium 4.4 mmol/L (3.5-5.1); Sodium 141 mmol/L (136-145)
[2018-08-07 08:15] LABS: Iron 104 ug/dL (50-175); Total Iron Binding Capacity 246 ug/dL (250-450); Transferrin Sat 42 % (20-55)
[2018-08-07] MEDS: predniSONE 20 MG TAB 40 MG PO (08:17)
[2018-08-07] MEDS: Aspirin 81 MG CHEW PO (08:17)
[2018-08-07] MEDS: amLODIPine 10 MG TAB PO (08:17)
[2018-08-07] MEDS: Docusate Sodium 100 MG CAP PO (08:18)
[2018-08-07] MEDS: Pregabalin 50 MG CAP 150 MG PO (08:18)
[2018-08-07] MEDS: Diazepam 2 MG TAB PO ×2 (08:18→13:30)
[2018-08-07] MEDS: Methocarbamol 750 MG TAB PO ×3 (08:18→16:01)
[2018-08-07 08:27] LABS: Ferritin 219 ng/mL (8-388); TSH 0.49 uIU/mL (0.358-3.74)
[2018-08-07 08:41] LABS: Folate 18.9 ng/mL (8.6-20.0)
[2018-08-07 08:49] LABS: Vitamin B12 > 1000 pg/mL (193-986)
[2018-08-07 10:45] VITALS: BP 192/84; PULSE 56
[2018-08-07] MEDS: Esomeprazole 40 MG CAPCR PO (11:19)
--- NOTE | 2018-08-07 11:44 | PT.INTREAT ---
Date of service: 08/07/18 Time of Service: 09:55 PT Notes Inpatient Physical Therapy Treatment Note Date: 08/07/18 SUBJECTIVE: Hugh states that he is feeling better. He is no longer nauseous or vomitting. His pain is better controlled. He is walking around room and hospital floor occasionally without much pain. He is hoping for d/c today. He reports doing the exercises that PT gave him yesterday frequently t/o the day. Indicated that he is scheduled for MRI tomorrow. OBJECTIVE: [] BED MOBILITY/TRANSFERS Rolling L/R: I Supine-sit:I Sit-supine: I Sit-stand: I Stand-sit: I Bed-Chair: I Chair-bed: I GAIT Assistive Device: none Weight bearing: full Assist: I/S THEREX: performed REJI x3, prone press ups x3. SKTC and piriformis stretch. ASSESSMENT: tolerates ex well. Does have reduction in sciatic sx, however increased LBP with the press ups. Much improvement with pain levels as well as functional mobility. PLAN: possible d/c home with later today. TREATMENT CODE/TIME: 10 min. TPx1.
[2018-08-07] MEDS: oxyCODONE 5 mg/Acetaminophen 325 mg TAB 1 TAB PO (11:55)
[2018-08-07 13:05] VITALS: BP 185/73; PULSE 71; RESP 20; TEMP 36.5; O2SAT 98
--- NOTE | 2018-08-07 14:12 | W.PM.DS.N ---
Date of service: 08/07/18 Time of Service: 14:12 DS: Diagnosis Discharge Diagnosis (1) Sciatica: Status: Acute (2) Diabetes mellitus: Status: Chronic (3) Hypertension: Status: Chronic (4) CKD (chronic kidney disease): Status: Chronic Discharge Plan Disposition Patient Disposition: HOME Condition: Stable Discharge Details Reason For Visit: SCIATICA, HYPERLYCEMIA Admit Date/Time: 08/05/18 18:36 Admit Provider: Hugh Love Attending Provider: Hugh Love Primary Care Provider: Adeola Villegas Hospital Course Hospital Course: CC: Intractable left sided Sciatica Pain HPI: 52-year-old male with history of Insulin depended diabetes, chronic renal insufficiency, and neuropathy admitted from [facility] Emergency Department on 08/05/2018 with intractable Sciatica type pain. Mr. Bruner has a history of prior sciatica, and reported a 3 week current history of left-sided sciatica pain radiating from his buttock to the calf. He has failed medical management, including analgesics and steroids. He is scheduled for an MRI as an outpatient tomorrow. He reported that he has been having unrelenting pain prior to his admission, along with some nausea and vomitingthat has led to decreased oral intake and failure to take insulin. Work-up in the emergency department was noteworthy for an initial blood sugar of over 700, but without significant electrolyte derangement otherwise. Following admission the patient received IVFs and sliding scale insulin coverage, as well as pain medication and antiemetics. Yesterday he was initiated on benzo therapy as well as reinitiation of his muscle relaxer, and today reports vast improvement in all symptoms including pain and nausea, as well as resolution of his vomiting. He does however remain significantly hypertensive. Blood sugars also improved with initiation of half of patient's basal insulin dosing last night, but as he is eating again his accu checks have been in the 300 range mostly prior to discharge. No other events reported. He remains afebrile. Hospital Course: (1) Sciatica: Pre-existing condition with current acute flare failing conservative outpatient management. No red flags with patient denying any urinary or bowel changes, saddle anesthesia, or LE weakness at this time. Continue pain control with change to oral Oxycodone/Acetaminophen, low dose, for a short planned course. Will also continue oral Valium and home regimen of muscle relaxer, as well as a quick prednisone taper. Physical therapy consulted as well. Plan on MRI of back as scheduled following discharge. Current symptoms vastly improved. (2) Diabetes mellitus: Hyperglycemia in setting of insulin noncompliance. Current sugars improved, but not at goal as patient is now taking improved oral intake, is on steroids, and was started on half of his home basal insulin dose only. Plan on restarting home insulin regimen following discharge. Questioned patient regarding safety of taking Metformin with his creatinine values - patient states that this was an erroneous entry, and he is no longer taking this medication. (3) Hypertension: Significantly hypertensive. Discussed with patient that we would prefer to keep him overnight and work on improved blood pressure control prior to discharge - however he is not willing to stay. For now continue max dose CCB therapy. Mr. Bruner informs that he is no longer on JUAN-I at baseline owing to his kidney function. Given his creatinine value, and that he was noted to be approaching or mildly bradycardic during his hospitalization, antihypertensives such as ARBs, Spironolactone, and BB therapy were not initiated. Patient is being started on low dose a-jailyn. He also reports that he is seeing his PCP and transplant physicians at [facility] later this week. Recommended he purchase a blood pressure cuff and monitor his values closely at home, with close follow-up with his PCP as an outpatient. (4) Peripheral neuropathy: Decreased Lyrica to 150mg for renal dosing. (5) CKD (chronic kidney disease): Noted. Unknown etiology, but may be on the basis of uncontrolled hypertension vs. Diabetic Nephropathy. Current creatinine appears to be at baseline. Currently between Stage 3 and 4 CKD. Patient reportedly being considered for kidney transplant at [facility]. (6) Anemia Hgb of 9.7 this morning with IVF hydration, down from prior values of 10-12. Iron low, TIBC low, and ferritin normal at 219. Patient also with normal Folate and TSH, and B12 levels that are not low. Stool Occult ordered but patient has not moved his bowels due to decreased oral intake. Anemia may be of chronic disease in patient with diabetes and CKD - however, please note that upon discussion with patient it appears that prior to his admission he suffered from significant subjective GERD symptoms that resolved with administration of PPI and H2 jailyn. Unfortunately no EKG or troponin was checked at time of admission, but given resolution with above medications and chronic history of GERD doubt cardiac in origin. Could have component of blood loss to anemia as well - Will initiate PPI therapy in conjunction with H2 jailyn, and have a repeat CBC drawn as outpatient. Monitor symptoms closely. Home Meds and New Rx's Prescriptions: New diazepam 2 mg Tablet 2 mg PO TID 5 Days Qty: 15 RF: 0 esomeprazole magnesium [Nexium] 40 mg Capsule,Delayed Release(Dr/Ec) 40 mg PO DAILY Qty: 30 RF: 0 pregabalin [Lyrica] 50 mg Capsule 150 mg PO BID Qty: 60 RF: 0 prednisone 20 mg Tablet 40 mg PO DAILY 5 Days Qty: 5 RF: 0 oxycodone-acetaminophen 5-325 mg Tablet 1 tab PO Q4H PRN PRN5 Days Qty: 20 RF: 0 ranitidine HCl 150 mg Tablet 150 mg PO BID Qty: 60 RF: 0 Continue insulin syringe-needle U-100 [BD Insulin Syringe] 1 EACH syringe 1 ea Sub-Q TID RF: 0 pen needle, diabetic 1 EACH needle 1 ea Sub-Q AC Qty: 180 RF: 12 blood-glucose meter [FreeStyle Lite Meter] 1 EACH kit 1 ea Miscellaneous TID Qty: 1 RF: 0 lancets 1 EACH misc 1 ea Intradermal TID Qty: 300 RF: 4 TEST STRIPS 1 EACH strip 1 ea Miscellaneous TID Qty: 270 RF: 4 insulin aspart U-100 [Novolog Flexpen U-100 Insulin] 100 UNIT/1 ML insulin pen 5 - 20 unit SQ DIRECTED Qty: 3 RF: 12 furosemide 20 MG tablet 40 mg PO DAILY RF: 0 methocarbamol 750 mg Tablet 750 mg PO QID RF: 0 aspirin 81 mg Tablet,Chewable 81 mg PO DAILY RF: 0 insulin detemir U-100 [Levemir FlexTouch U-100 Insuln] 100 unit/mL (3 mL) Insulin Pen 55 units subcut HS RF: 0 ferrous sulfate 325 mg (65 mg iron) Tablet 650 mg PO DAILY RF: 0 amlodipine 10 mg Tablet 10 mg PO DAILY RF: 0 Discontinued lisinopril 10 MG tablet 10 mg PO DAILY Qty: 90 RF: 4 insulin glargine [Lantus Solostar U-100 Insulin] 100 UNIT/1 ML insulin pen 45 unit SQ HS Qty: 3 RF: 12 metformin 500 MG tablet extended release 24 hr 500 mg PO DAILY RF: 0 pregabalin [Lyrica] 50 MG capsule 200 mg PO BID RF: 0 prednisone 10 mg Tablet 1 - 3 tab PO DIRECTED RF: 0 Discharge Instructions Additional Instructions: Please see your Primary and specialist doctors as scheduled this week. Monitor your blood pressure carefully and call your PCP if your top numbers are consistently greater than 170 Please repeat your blood work in 3 days. Activity:: No Strenuous Activity Equipment/Supplies:: No Equipment Needed Diet:: Carb Counting Discharge Orders Discharge Orders: Discharge Order (Routine); Ordered 08/07/18 Ordered By: Carl Khan Other Ambulatory Orders: Basic Metabolic Panel (Routine) Timeframe: 3 Days Location: Determined by Patient Ordered By: Carl Khan Complete Blood Count w/Diff (Routine) Timeframe: 3 Days Location: Determined by Patient Ordered By: Carl Khan Exam Narrative Exam Narrative: General: Patient appears uncomfortable but in no acute distress, AAOX3 Neck: Supple CV: Regular, nontachycardic, S1S2, No rubs, murmurs, or gallops. Pulmonary: Clear to auscultation bilaterally, no crackles, wheezing, or rhonchi Abdomen: + Bowel Sounds, soft, nontender, nondistended Vascular: No lower extremity edema Psych: Normal mood and affect. DS: Data Vitals/I&O Vitals and I&O: Vital Signs Temperature 36.5 C 08/07/18 13:05 Temperature Source Tympanic 08/07/18 13:05 Pulse 71 08/07/18 13:05 Pulse Rhythm Regular 08/07/18 08:35 Pulse 69 08/05/18 19:45 Respiratory Rate 20 08/07/18 13:05 Respiratory Effort Non-Labored 08/07/18 08:35 Respiratory Depth Normal 08/07/18 08:35 Respiratory Pattern Normal 08/07/18 08:35 Blood Pressure 185/73 H 08/07/18 13:05 Blood Pressure Mean 102 08/05/18 19:45 Blood Pressure Position Supine 08/05/18 12:01 Pulse Oximetry 98 08/07/18 13:05 Oxygen Delivery Method Room Air 08/07/18 13:05 Oxygen Flow Rate 0 08/07/18 13:05 Pain Level 8 08/06/18 16:57 Comment 08/06/18 04:50 Intake & Output 08/06/18 08/07/18 08/07/18 23:59 11:59 23:59 Intake Total 1060 / 1060 540 / 540 Balance 1060 / 1060 540 / 540 Intake: Oral 1060 / 1060 540 / 540 Other: Urine Color Yellow Urine Appearance Clear Comment voiding in urinal and toilet independently Voiding Methods Toilet Completed studies during hospitalization [Text1]: Exam(s) a US:US lower extremity venous LT SYMPTOMS/DIAGNOSIS: LEFT CALF PAIN X 2 WEEKS, ? DVT LEFT LOWER EXTREMITY ULTRASOUND: The femoral and popliteal veins, calf veins, as well as saphenous vein appear free of thrombus. No localized fluid collection or hematoma is seen. IMPRESSION: Negative left lower extremity ultrasound. No evidence of DVT. Labs on day of discharge: Labs from last 24 hours 08/07/18 08/07/18 08/07/18 05:48 05:48 05:48 WBC RBC Hgb Hct MCV MCH MCHC RDW Plt Count MPV Sodium 141 Potassium 4.4 Chloride 108 H Carbon Dioxide 25.2 Anion Gap 7.8 BUN 60 H Creatinine 3.36 H Estimated GFR/1.73 m2 19.45 Glucose 259 H D Calcium 8.3 L Iron TIBC Transferrin % Sat Ferritin 219 Vitamin B12 > 1000 H Folate 18.9 TSH 0.49 08/07/18 08/05/18 05:48 17:30 WBC 12.24 H RBC 3.29 L Hgb 9.7 L Hct 29.1 L MCV 88.4 MCH 29.5 MCHC 33.3 RDW 12.5 Plt Count 252 MPV 11.8 H Sodium Potassium Chloride Carbon Dioxide Anion Gap BUN Creatinine Estimated GFR/1.73 m2 Glucose Calcium Iron 104 TIBC 246 L Transferrin % Sat 42 Ferritin Vitamin B12 Folate TSH
--- NOTE | 2018-08-07 14:28 | DSE_ITS ---
Date of service: 08/07/18 Time of Service: 14:12 DS: Diagnosis Discharge Diagnosis (1) Sciatica: Status: Acute (2) Diabetes mellitus: Status: Chronic (3) Hypertension: Status: Chronic (4) CKD (chronic kidney disease): Status: Chronic Discharge Plan Disposition Patient Disposition: HOME Condition: Stable Discharge Details Reason For Visit: SCIATICA, HYPERLYCEMIA Admit Date/Time: 08/05/18 18:36 Admit Provider: Hugh Love Attending Provider: Hugh Love Primary Care Provider: Adeola Villegas Hospital Course Hospital Course: CC: Intractable left sided Sciatica Pain HPI: 52-year-old male with history of Insulin depended diabetes, chronic renal insufficiency, and neuropathy admitted from [facility] Emergency Department on 2017 with intractable Sciatica type pain. Mr. Bruner has a history of prior sciatica, and reported a 3 week current history of left-sided sciatica pain radiating from his buttock to the calf. He has failed medical management, including analgesics and steroids. He is scheduled for an MRI as an outpatient tomorrow. He reported that he has been having unrelenting pain prior to his admission, along with some nausea and vomitingthat has led to decreased oral intake and failure to take insulin. Work- up in the emergency department was noteworthy for an initial blood sugar of over 700, but without significant electrolyte derangement otherwise. Following admission the patient received IVFs and sliding scale insulin coverage , as well as pain medication and antiemetics. Yesterday he was initiated on benzo therapy as well as reinitiation of his muscle relaxer, and today reports vast improvement in all symptoms including pain and nausea, as well as resolution of his vomiting. He does however remain significantly hypertensive. Blood sugars also improved with initiation of half of patient's basal insulin dosing last night, but as he is eating again his accu checks have been in the 300 range mostly prior to discharge. No other events reported. He remains afebrile. Hospital Course: (1) Sciatica: Pre-existing condition with current acute flare failing conservative outpatient management. No red flags with patient denying any urinary or bowel changes, saddle anesthesia, or LE weakness at this time. Continue pain control with change to oral Oxycodone/Acetaminophen, low dose, for a short planned course. Will also continue oral Valium and home regimen of muscle relaxer, as well as a quick prednisone taper. Physical therapy consulted as well. Plan on MRI of back as scheduled following discharge. Current symptoms vastly improved. (2) Diabetes mellitus: Hyperglycemia in setting of insulin noncompliance. Current sugars improved, but not at goal as patient is now taking improved oral intake, is on steroids, and was started on half of his home basal insulin dose only. Plan on restarting home insulin regimen following discharge. Questioned patient regarding safety of taking Metformin with his creatinine values - patient states that this was an erroneous entry, and he is no longer taking this medication. (3) Hypertension: Significantly hypertensive. Discussed with patient that we would prefer to keep him overnight and work on improved blood pressure control prior to discharge - however he is not willing to stay. For now continue max dose CCB therapy. Mr. Bruner informs that he is no longer on JUAN-I at baseline owing to his kidney function. Given his creatinine value, and that he was noted to be approaching or mildly bradycardic during his hospitalization, antihypertensives such as ARBs , Spironolactone, and BB therapy were not initiated. Patient is being started on low dose a-jailyn. He also reports that he is seeing his PCP and transplant physicians at [facility] later this week. Recommended he purchase a blood pressure cuff and monitor his values closely at home, with close follow-up with his PCP as an outpatient. (4) Peripheral neuropathy: Decreased Lyrica to 150mg for renal dosing. (5) CKD (chronic kidney disease): Noted. Unknown etiology, but may be on the basis of uncontrolled hypertension vs. Diabetic Nephropathy. Current creatinine appears to be at baseline. Currently between Stage 3 and 4 CKD. Patient reportedly being considered for kidney transplant at [facility]. (6) Anemia Hgb of 9.7 this morning with IVF hydration, down from prior values of 10-12. Iron low, TIBC low, and ferritin normal at 219. Patient also with normal Folate and TSH, and B12 levels that are not low. Stool Occult ordered but patient has not moved his bowels due to decreased oral intake. Anemia may be of chronic disease in patient with diabetes and CKD - however, please note that upon discussion with patient it appears that prior to his admission he suffered from significant subjective GERD symptoms that resolved with administration of PPI and H2 jailyn. Unfortunately no EKG or troponin was checked at time of admission, but given resolution with above medications and chronic history of GERD doubt cardiac in origin. Could have component of blood loss to anemia as well - Will initiate PPI therapy in conjunction with H2 jailyn, and have a repeat CBC drawn as outpatient. Monitor symptoms closely. Home Meds and New Rx's Prescriptions: New diazepam 2 mg Tablet 2 mg PO TID 5 Days Qty: 15 RF: 0 esomeprazole magnesium [Nexium] 40 mg Capsule,Delayed Release(Dr/Ec) 40 mg PO DAILY Qty: 30 RF: 0 pregabalin [Lyrica] 50 mg Capsule 150 mg PO BID Qty: 60 RF: 0 prednisone 20 mg Tablet 40 mg PO DAILY 5 Days Qty: 5 RF: 0 oxycodone-acetaminophen 5-325 mg Tablet 1 tab PO Q4H PRN PRN5 Days Qty: 20 RF: 0 ranitidine HCl 150 mg Tablet 150 mg PO BID Qty: 60 RF: 0 Continue insulin syringe-needle U-100 [BD Insulin Syringe] 1 EACH syringe 1 ea Sub-Q TID RF: 0 pen needle, diabetic 1 EACH needle 1 ea Sub-Q AC Qty: 180 RF: 12 blood-glucose meter [FreeStyle Lite Meter] 1 EACH kit 1 ea Miscellaneous TID Qty: 1 RF: 0 lancets 1 EACH misc 1 ea Intradermal TID Qty: 300 RF: 4 TEST STRIPS 1 EACH strip 1 ea Miscellaneous TID Qty: 270 RF: 4 insulin aspart U-100 [Novolog Flexpen U-100 Insulin] 100 UNIT/1 ML insulin pen 5 - 20 unit SQ DIRECTED Qty: 3 RF: 12 furosemide 20 MG tablet 40 mg PO DAILY RF: 0 methocarbamol 750 mg Tablet 750 mg PO QID RF: 0 aspirin 81 mg Tablet,Chewable 81 mg PO DAILY RF: 0 insulin detemir U-100 [Levemir FlexTouch U-100 Insuln] 100 unit/mL (3 mL) Insulin Pen 55 units subcut HS RF: 0 ferrous sulfate 325 mg (65 mg iron) Tablet 650 mg PO DAILY RF: 0 amlodipine 10 mg Tablet 10 mg PO DAILY RF: 0 Discontinued lisinopril 10 MG tablet 10 mg PO DAILY Qty: 90 RF: 4 insulin glargine [Lantus Solostar U-100 Insulin] 100 UNIT/1 ML insulin pen 45 unit SQ HS Qty: 3 RF: 12 metformin 500 MG tablet extended release 24 hr 500 mg PO DAILY RF: 0 pregabalin [Lyrica] 50 MG capsule 200 mg PO BID RF: 0 prednisone 10 mg Tablet 1 - 3 tab PO DIRECTED RF: 0 Discharge Instructions Additional Instructions: Please see your Primary and specialist doctors as scheduled this week. Monitor your blood pressure carefully and call your PCP if your top numbers are consistently greater than 170 Please repeat your blood work in 3 days. Activity:: No Strenuous Activity Equipment/Supplies:: No Equipment Needed Diet:: Carb Counting Discharge Orders Discharge Orders: Discharge Order (Routine); Ordered 08/07/18 Ordered By: Carl Khan Other Ambulatory Orders: Basic Metabolic Panel (Routine) Timeframe: 3 Days Location: Determined by Patient Ordered By: Carl Khan Complete Blood Count w/Diff (Routine) Timeframe: 3 Days Location: Determined by Patient Ordered By: Carl Khan Exam Narrative Exam Narrative: General: Patient appears uncomfortable but in no acute distress , AAOX3 Neck: Supple CV: Regular, nontachycardic, S1S2, No rubs, murmurs, or gallops. Pulmonary: Clear to auscultation bilaterally, no crackles, wheezing, or rhonchi Abdomen: + Bowel Sounds, soft, nontender, nondistended Vascular: No lower extremity edema Psych: Normal mood and affect. DS: Data Vitals/I&O Vitals and I&O: Vital Signs Temperature 36.5 C 08/07/18 13:05 Temperature Source Tympanic 08/07/18 13:05 Pulse 71 08/07/18 13:05 Pulse Rhythm Regular 08/07/18 08:35 Pulse 69 08/05/18 19:45 Respiratory Rate 20 08/07/18 13:05 Respiratory Effort Non-Labored 08/07/18 08:35 Respiratory Depth Normal 08/07/18 08:35 Respiratory Pattern Normal 08/07/18 08:35 Blood Pressure 185/73 H 08/07/18 13:05 Blood Pressure Mean 102 08/05/18 19:45 Blood Pressure Position Supine 08/05/18 12:01 Pulse Oximetry 98 08/07/18 13:05 Oxygen Delivery Method Room Air 08/07/18 13:05 Oxygen Flow Rate 0 08/07/18 13:05 Pain Level 8 08/06/18 16:57 Comment 08/06/18 04:50 Intake & Output 08/06/18 08/07/18 08/07/18 23:59 11:59 23:59 Intake Total 1060 / 1060 540 / 540 Balance 1060 / 1060 540 / 540 Intake: Oral 1060 / 1060 540 / 540 Other: Urine Color Yellow Urine Appearance Clear Comment voiding in urinal and toilet independently Voiding Methods Toilet Completed studies during hospitalization [Text1]: Exam(s) a US:US lower extremity venous LT SYMPTOMS/DIAGNOSIS: LEFT CALF PAIN X 2 WEEKS, ? DVT LEFT LOWER EXTREMITY ULTRASOUND: The femoral and popliteal veins, calf veins, as well as saphenous vein appear free of thrombus. No localized fluid collection or hematoma is seen. IMPRESSION: Negative left lower extremity ultrasound. No evidence of DVT. Labs on day of discharge: Labs from last 24 hours 08/07/18 08/07/18 08/07/18 05:48 05:48 05:48 WBC RBC Hgb Hct MCV MCH MCHC RDW Plt Count MPV Sodium 141 Potassium 4.4 Chloride 108 H Carbon Dioxide 25.2 Anion Gap 7.8 BUN 60 H Creatinine 3.36 H Estimated GFR/1.73 m2 19.45 Glucose 259 H D Calcium 8.3 L Iron TIBC Transferrin % Sat Ferritin 219 Vitamin B12 > 1000 H Folate 18.9 TSH 0.49 08/07/18 08/05/18 05:48 17:30 WBC 12.24 H RBC 3.29 L Hgb 9.7 L Hct 29.1 L MCV 88.4 MCH 29.5 MCHC 33.3 RDW 12.5 Plt Count 252 MPV 11.8 H Sodium Potassium Chloride Carbon Dioxide Anion Gap BUN Creatinine Estimated GFR/1.73 m2 Glucose Calcium Iron 104 TIBC 246 L Transferrin % Sat 42 Ferritin Vitamin B12 Folate TSH
[2018-08-07 15:30] VITALS: BP 159/91; PULSE 76; RESP 20; TEMP 36.8; O2SAT 98
--- NOTE | 2018-08-07 16:40 | PDOC.CMDIS ---
- If Service Date Differs Date of service: 08/07/18 Time of Service: 16:40 LACE Index Scoring Tool - Questions: Length of Stay (in days): 3 Acuity (Admit via E.D.?): Yes Comorbidities: Diabetes w/o Complication, Liver or Renal Disease E.D. Visits: 3 - Answers: Total Score: 14 Risk of Readmission: High Risk Care Management Discharge Reason for Hospitalization: Sciatica, Hyperglycemia Discharge Plan: CM met with Xander and his spouse prior to discharge. Xander states he is ready to return home he will have an MRI on Wednesday as scheduled. CM faxed referrals to [employer] for CM r/t DM, and Chronic Care Coordiantor assistance with prescriptions. Xander has been unable to afford his test strips and has a large copay. CM attempted prior authorization for discharge PPI through [employer] script. [employer] does not cover PPI for participants over the age of 17. Xander will purchase PPI over the counter. Xander will follow up with [facility] provider as directed. CM provided contact information for follow up r/t questions or concerns r/t referrals or discharge questions. Patient/Family Education Needs: Discharge education, limitations and follow up plan of care. Ask me three discussions and self management. Education related to community resources including CM through [facility] and chronic child care supervisor and primary care.
--- NOTE | 2018-08-07 16:45 | NUR.NOTE ---
Nursing Note: 1620- iid removed , pt discharged with to home
--- NOTE | 2018-08-07 16:49 | CMDISCH_ITS ---
- If Service Date Differs Date of service: 08/07/18 Time of Service: 16:40 LACE Index Scoring Tool - Questions: Length of Stay (in days): 3 Acuity (Admit via E.D.?): Yes Comorbidities: Diabetes w/o Complication, Liver or Renal Disease E.D. Visits: 3 - Answers: Total Score: 14 Risk of Readmission: High Risk Care Management Discharge Reason for Hospitalization: Sciatica, Hyperglycemia Discharge Plan: CM met with Xander and his spouse prior to discharge. Xander states he is ready to return home he will have an MRI on Wednesday as scheduled. CM faxed referrals to [employer] for CM r/t DM, and Chronic Care Coordiantor assistance with prescriptions. Xander has been unable to afford his test strips and has a large copay. CM attempted prior authorization for discharge PPI through [employer] script. [employer] does not cover PPI for participants over the age of 17. Xander will purchase PPI over the counter. Xander will follow up with [facility] provider as directed. CM provided contact information for follow up r/t questions or concerns r/t referrals or discharge questions. Patient/Family Education Needs: Discharge education, limitations and follow up plan of care. Ask me three discussions and self management. Education related to community resources including CM through [facility] and chronic laboratory animal caretaker and primary care.
--- NOTE | 2018-08-08 07:53 | PT.INDS ---
Date of service: 08/08/18 Time of Service: 07:53 PT Notes Inpatient Physical Therapy Discharge Summary Date: 08/08/18 for 08/07/18 Dates of Service:08/06/18-08/07/18 SUBJECTIVE: NT OBJECTIVE: 08/06/18-08/07/18 Bed Mobility/Transfers: Rolling: Independent Supine to sit: Independent Sit to supine: Independent Sit to stand: independent Stand to sit: independent Gait: independent no assistive device. Balance: Static Sitting: Normal Dynamic Sitting: Normal Static Standing: Good Dynamic Standing: good Assessment: Patient is a 52 year old male referred to physical therapy services with the diagnosis of intractable low back pain with sciatica. Patient was seen for 2 PT visits, progressed from supervision gait no device 5ft to independent gait with no device . Pt was discharged to home setting. Goals: Goals X1 week 1. Supine-Sit: Independent 2. Sit-Supine : Independent 3. Sit-Stand : Independent 4. Stand-Sit: Independent 5. Bed-Chair: Independent 6. Chair-Bed : Independent 7. Gait : Independent x 300' 8. Stairs : Independent 9. Independent with home exercise program : Independent self-management of symptoms Pt met goals # 1, 2, 3, 4, 7 DISCHARGE RECOMMENDATIONS: home, with outpatient PT G Codes in the area mobility of walking and moving around; projected status GP [id number]. discharge status GP [id number] Virk PT
--- NOTE | 2018-08-10 14:59 | DM INPTCON_ITS ---
DESCRIPTION/ASSESSMENT: Appreciate diabetes consult for Mr. Bruner who is hospitalized with sciatic pain and blood sugar 1025mg/dl. Blood sugars were reduced with insulin drip to 400s and currently are in the 2-300s taking 35units Detemir and insulin correction at the moderate level. He takes 55u Detemir at home with Novolog 5-20units per meal. He is also taking Prednisone. He has comorbid conditions of neuropathy and chronic renal disease. No current A1c available. Visited him as he was leaving. His partner states his blood sugars are good at home. He has had outpatient diabetes support. INTERVENTION: Blood sugars not currently at goal during this hospitalization, however he was not taking his usual dose of insulin. No intervention given his imminent discharge. PLAN: Follow up as he desires.
== END 2018-08-07 16:23 | disposition home or self-care (01) | DRG 552 ==
LOC: ER 19:06 → MS 08-07 14:28
PROVIDERS: Admitting Provider General Practice; Emergency Provider Physician Assistant; PCP Nurse Practitioner Family; Visit Provider Internal Medicine
DX: M54.32 Sciatica, left side (principal); E11.22 Type 2 diabetes mellitus with diabetic chronic kidney disease; N18.3 Chronic kidney disease, stage 3 (moderate); E11.42 Type 2 diabetes mellitus with diabetic polyneuropathy; I12.9 Hypertensive chronic kidney disease with stage 1 through stage 4 chronic kidney disease, or unspecified chronic kidney disease; Z79.4 Long term (current) use of insulin; E11.65 Type 2 diabetes mellitus with hyperglycemia; Z91.14 Patient's other noncompliance with medication regimen; D63.1 Anemia in chronic kidney disease; Z72.0 Tobacco use
CPT/HCPCS: 36415; 36416; 80048; 80053; 82962; 85027; 96361; 96374; 96375; 96376; 97110; 97162; 99222; 99232; 99239; 99285; 81003; 81015; 82607; 82728; 82746; 83540; 83550; 84443; 85025; 93971; J0780; J1644; J2270; J2405; J2765; J3490; J7512

== ENCOUNTER 2018-08-08 01:05 | Outpatient (CLI) | payer BC, SELFPAY ==
--- NOTE | 2018-08-08 08:30 | DI.MRI_ITS ---
SYMPTOM/DIAGNOSIS: CHRONIC BACK PAIN, M54.89, DDD, M51.36, INCREASED, LT LEG SYMPTOMS LUMBOSACRAL SPINE MRI: MRI examination of the lumbosacral spine was performed according to the usual protocol. No significant bony signal abnormality is seen. The conus medullaris appears intact. There is signal loss in L 3-4 an L 4-5 intervertebral discs. No significant findings at L 1-2, L 2-3. At L 3-4, there is a small to moderate sized central disc herniation without obvious neural impingement. This appears smaller than on previous lumbar MRI of 08/01/15. At L 4-5, there is a disc herniation which is left paracentral and left lateral and which extends at and inferior to the disc level. This is increased in size in comparison with the previous examination of 07/2015. There is posterior displacement of the left L 5 nerve root and significant distortion of the thecal sac in the left lateral recess. Small central disc herniation noted at L 5-S 1 without gross neural impingement. Moderate hypertrophic degenerative changes of the facet joints noted at L 4-5 and L 5-S 1. CONCLUSION: 1. L 3-4 disc herniation, central, decreased prominence from 08/01/15. 2. Increased prominence of left L 4-5 disc herniation since 2014 as described above. 3. Small central disc herniation at L 5-S 1. 4. Mild neural foraminal narrowing bilaterally at L 5 -S 1.
== END 2018-08-08 01:25 ==
PROVIDERS: PCP Nurse Practitioner Family; Visit Provider Nurse Practitioner Family
DX: M54.5 Low back pain (principal); M51.16 Intervertebral disc disorders with radiculopathy, lumbar region; M51.36 Other intervertebral disc degeneration, lumbar region; M51.17 Intervertebral disc disorders with radiculopathy, lumbosacral region
CPT/HCPCS: 72148

== ENCOUNTER 2018-08-09 16:22 | Outpatient (REF) | payer BC, SELFPAY ==
[2018-08-09 18:44] LABS: Abs Immature Grans 0.03 k/cumm (0.0-0.09); Absolute Eosinophil Count 0.01 k/cumm (0.0-0.7); Absolute Lymphocyte Count 0.44 k/cumm (1.2-3.4); Absolute Neutrophil Count 11.56 k/cumm (1.2-6.7); Eosinophils % 0.1; HGB 9.5 g/dL (13.5-17.5); Immature Grans % 0.2; Lymphocytes % 3.5; Mean Corp. HGB Concentration 32.8 g/dL (32.0-36.0); Mean Corpuscular Hemoglobin 29.5 pg (27.0-33.0); Mean Corpuscular Volume 90.1 fL (80-95); Mean Platelet Volume 12.6 fL (8.0-11.0); Neutrophils % 92.2; Platelet Count 232 x1000/uL (130-400); RBC 3.22 m/cumm (4.50-6.00); RBC Distribution Width 12.4 % (11.8-14.1); White Blood Cell Count 12.54 k/cumm (4.4-10.8)
[2018-08-09 19:07] LABS: Anion Gap 7.5 mmol/L (3-11); CO2 25.5 mmol/L (21.0-32.0); Chloride 95 mmol/L (98-107); Estimated GFR 14.56 (mL/min/1.73m2); Sodium 128 mmol/L (136-145)
[2018-08-09 19:31] LABS: BUN 82 mg/dL (7-18); CREATININE 4.32 mg/dL (0.70-1.30); Glucose 1248 mg/dL (70-100)
[2018-08-09 19:32] LABS: Potassium 6.5 mmol/L (3.5-5.1)
[2018-08-10 13:37] LABS: Calcium 8.2 mg/dL (8.5-10.1)
== END 2018-08-09 16:42 ==
LOC: NCHCN 16:22
PROVIDERS: PCP Nurse Practitioner Family; Visit Provider Nurse Practitioner Family
DX: N18.3 Chronic kidney disease, stage 3 (moderate) (principal)
CPT/HCPCS: 80048; 85025

== ENCOUNTER 2018-08-09 21:43 | Emergency (ER) | payer BC, SELFPAY ==
[2018-08-09] VITALS (27 sets, daily range): BP systolic 175–204; BP diastolic 76–98; PULSE 54–84; RESP 11–27; TEMP 36.3; O2SAT 92–97
[2018-08-09] MEDS: Normal Saline Flush 10 ML SYR IVP (22:00)
--- NOTE | 2018-08-09 22:12 | W.ED.GENAD ---
Discharge Plan Disposition Patient Disposition: [facility] Condition: Stable Discharge Details Chief Complaint: Diabetes Clinical Impression: Hyperglycemia without ketosis, Acute hyperkalemia, Acute kidney injury superimposed on chronic kidney disease Primary Care Provider: Adeola Villegas ED Provider: Jas Morales Home Meds and New Rx's Prescriptions: No Action insulin syringe-needle U-100 [BD Insulin Syringe] 1 EACH syringe 1 ea Sub-Q TID RF: 0 pen needle, diabetic 1 EACH needle 1 ea Sub-Q AC Qty: 180 RF: 12 blood-glucose meter [FreeStyle Lite Meter] 1 EACH kit 1 ea Miscellaneous TID Qty: 1 RF: 0 lancets 1 EACH misc 1 ea Intradermal TID Qty: 300 RF: 4 TEST STRIPS 1 EACH strip 1 ea Miscellaneous TID Qty: 270 RF: 4 insulin aspart U-100 [Novolog Flexpen U-100 Insulin] 100 UNIT/1 ML insulin pen 5 - 20 unit SQ DIRECTED Qty: 3 RF: 12 furosemide 20 MG tablet 40 mg PO DAILY RF: 0 methocarbamol 750 mg Tablet 750 mg PO QID RF: 0 aspirin 81 mg Tablet,Chewable 81 mg PO DAILY RF: 0 insulin detemir U-100 [Levemir FlexTouch U-100 Insuln] 100 unit/mL (3 mL) Insulin Pen 55 units subcut HS RF: 0 ferrous sulfate 325 mg (65 mg iron) Tablet 650 mg PO DAILY RF: 0 amlodipine 10 mg Tablet 10 mg PO DAILY RF: 0 diazepam 2 mg Tablet 2 mg PO TID 5 Days Qty: 15 RF: 0 esomeprazole magnesium [Nexium] 40 mg Capsule,Delayed Release(Dr/Ec) 40 mg PO DAILY Qty: 30 RF: 0 pregabalin [Lyrica] 50 mg Capsule 150 mg PO BID Qty: 60 RF: 0 prednisone 20 mg Tablet 40 mg PO DAILY 5 Days Qty: 5 RF: 0 oxycodone-acetaminophen 5-325 mg Tablet 1 tab PO Q4H PRN PRN5 Days Qty: 20 RF: 0 ranitidine HCl 150 mg Tablet 150 mg PO BID Qty: 60 RF: 0 Medical Decision Making Patient here with abnormal labs including marked hyperglycemia, worsening renal failure and hyperkalemia. IV established and fluids started. Repeat labs ordered. EKG shows peaked t waves. Calcium gluconate and insulin bolus ordered for hyperkalemia. Will then start insulin drip for glucose and continue fluids. Call placed to [facility] for potential transfer to dialysis capable facility. Patient's labs tonight with stable hemoglobin. Creatinine is worse, now at 4.6 but potassium a little better at 6.1 and glucose better at 1025. No anion gap and normal bicarb so not DKA. Sodium is 123 but corrects to 145. Case discussed with critical care at [facility]. Patient accepted in transfer to ICU at [facility]. Will need to go on saline drip and insulin infusion. Discussed with patient who understands need for transfer. Medical Records Medical records reviewed: Yes I reviewed the patient's medical records. Lab Data Lab results reviewed: Yes I reviewed the patient's lab results. ECG Data Attestation: I personally reviewed and interpreted this ECG (s) as follows: Prior ECG tracings: not available for review Interpretation: NSR at 58 with normal axis and intervals but peaked T waves present. HPI General Mode of arrival: ambulatory. Date/Time Provider Initiated Documentation: 08/09/18 22:09. Limitations to Documentation: no limitations. Information obtained by: patient and old records reviewed. HPI Narrative: Patient presents to ED after receiving call at home with lab abnormalities including markedly elevated glucose. Patient recently admitted and discharged from [facility] for [facility]atica. He was sent home on prednisone. He had previously scheduled follow up today for his diabetes and CRF. His pain has been better and he has been feeling better in general though his sugars have been a little high. He did note that he was drinking and urinating more today than usual. Related Data Home Medications Medication Instructions Recorded Confirmed insulin syringe-needle U-100 [BD 03/21/13 02/02/18 Insulin Syringe] blood-glucose meter [FreeStyle #1 kit 03/24/13 Lite Meter] pen needle, diabetic #180 unit 03/24/13 lancets #300 ea 08/08/13 insulin aspart U-100 [Novolog 5 - 20 unit SQ DIRECTED #3 pen 10/19/13 08/09/18 Flexpen U-100 Insulin] furosemide 40 mg PO DAILY 07/30/17 08/09/18 amlodipine 10 mg PO DAILY 08/05/18 08/09/18 aspirin 81 mg PO DAILY 08/05/18 08/09/18 ferrous sulfate 650 mg PO DAILY 08/05/18 08/09/18 insulin detemir U-100 [Levemir 55 units SUBCUT HS 08/05/18 08/09/18 FlexTouch U-100 Insuln] methocarbamol 750 mg PO QID 08/05/18 08/09/18 diazepam 2 mg PO TID 5 Days #15 tab 08/07/18 08/09/18 esomeprazole magnesium [Nexium] 40 mg PO DAILY #30 cap 08/07/18 08/09/18 oxycodone-acetaminophen 1 tab PO Q4H PRN PRN 5 Days #20 tab 08/07/18 08/09/18 prednisone 40 mg PO DAILY 5 Days #5 tab 08/07/18 08/09/18 pregabalin [Lyrica] 150 mg PO BID #60 cap 08/07/18 08/09/18 ranitidine HCl 150 mg PO BID #60 tab 08/07/18 08/09/18 Previous Rx's Medication Instructions Recorded diazepam 2 mg PO TID 5 Days #15 tab 08/07/18 esomeprazole magnesium [Nexium] 40 mg PO DAILY #30 cap 08/07/18 oxycodone-acetaminophen 1 tab PO Q4H PRN PRN 5 Days #20 tab 08/07/18 prednisone 40 mg PO DAILY 5 Days #5 tab 08/07/18 pregabalin [Lyrica] 150 mg PO BID #60 cap 08/07/18 ranitidine HCl 150 mg PO BID #60 tab 08/07/18 Allergies Allergy/AdvReac Type Severity Reaction Status Date / Time clindamycin Allergy Mild HIVES Unverified 08/05/18 12:18 Penicillins Allergy Mild Unverified 08/05/18 12:18 sertraline AdvReac Mild Nausea Unverified 08/05/18 12:18 gabapentin AdvReac ANKLE EDEMA Unverified 08/05/18 12:18 General Stated Complaint: Diabetes MONIKA: 2 Review of Systems Review of Systems Unobtainable due to (acuity of medical condition) [facility] Medical History CKD (chronic kidney disease) (Chronic) Peripheral neuropathy (Chronic) Hypertension (Chronic) Diabetes mellitus (Chronic) Chronic Kidney disease stage 3 Social History Smoking/Tobacco Use Status: Current-Occasional Surgical History Cholecystectomy Colonoscopy - MAC (10/08/16) Exam Const General: cooperative, no acute distress and well developed Nutritional Appearance: well nourished Orientation: alert and oriented x3 HENMT Head: normocephalic and atraumatic Mouth: mucous membranes dry Neck Neck: normal visual inspection, trachea midline and supple Resp Effort & Inspection: normal respiratory effort Auscultation: clear to auscultation bilaterally Cardio Rate: regular rate Rhythm: regular rhythm Heart Sounds: S1 normal and S2 normal GI Palpation: soft, not firm and nontender Back/Spine/Pelvis Thoracic/Lumbar Spine: pain with thoraco-lumbar ROM and thoraco-lumbar ROM limited Skin General skin exam: no rashes or lesions noted Neuro General: alert, oriented x3, gait abnormal (limping due to back pain), no focal motor deficits and CN's II-XI intact bilaterally Extrem General: normal to inspection and no clubbing, cyanosis or edema Course Vital Signs Temperature 97.3 F L 08/09/18 21:51 Pulse 62 08/09/18 21:51 Respiratory Rate 20 08/09/18 21:51 Blood Pressure 204/82 H 08/09/18 21:51 Pulse Oximetry 96 08/09/18 21:51 Temperature 97.3 F L 08/09/18 21:51 Temperature Source Skin 08/09/18 21:51 Pulse 62 08/09/18 21:51 Pulse 57 L 08/09/18 22:00 Respiratory Rate 15 08/09/18 22:00 Respiratory Effort Non-Labored 08/09/18 22:10 Blood Pressure 204/82 H 08/09/18 21:51 Blood Pressure Position Sitting 08/09/18 21:51 Pulse Oximetry 95 08/09/18 22:00 Oxygen Delivery Method Room Air 08/09/18 21:51 Oxygen Flow Rate 0 08/09/18 21:51 Pain Level 0 08/09/18 21:51 Critical Care Time Critical Care Time: Yes Total Critical Care Time: 60 Attestation: Critical labs needing to be addressed immediately to prevent deterioration.
[2018-08-09] MEDS: Normal Saline 1,000 ML 2000 ML IV (22:33)
--- NOTE | 2018-08-09 22:33 | ED.GENADUL_ITS ---
Discharge Plan Disposition Patient Disposition: [facility] Condition: Stable Discharge Details Chief Complaint: Diabetes Clinical Impression: Hyperglycemia without ketosis, Acute hyperkalemia, Acute kidney injury superimposed on chronic kidney disease Primary Care Provider: Adeola Villegas ED Provider: Jas Morales Home Meds and New Rx's Prescriptions: No Action insulin syringe-needle U-100 [BD Insulin Syringe] 1 EACH syringe 1 ea Sub-Q TID RF: 0 pen needle, diabetic 1 EACH needle 1 ea Sub-Q AC Qty: 180 RF: 12 blood-glucose meter [FreeStyle Lite Meter] 1 EACH kit 1 ea Miscellaneous TID Qty: 1 RF: 0 lancets 1 EACH misc 1 ea Intradermal TID Qty: 300 RF: 4 TEST STRIPS 1 EACH strip 1 ea Miscellaneous TID Qty: 270 RF: 4 insulin aspart U-100 [Novolog Flexpen U-100 Insulin] 100 UNIT/1 ML insulin pen 5 - 20 unit SQ DIRECTED Qty: 3 RF: 12 furosemide 20 MG tablet 40 mg PO DAILY RF: 0 methocarbamol 750 mg Tablet 750 mg PO QID RF: 0 aspirin 81 mg Tablet,Chewable 81 mg PO DAILY RF: 0 insulin detemir U-100 [Levemir FlexTouch U-100 Insuln] 100 unit/mL (3 mL) Insulin Pen 55 units subcut HS RF: 0 ferrous sulfate 325 mg (65 mg iron) Tablet 650 mg PO DAILY RF: 0 amlodipine 10 mg Tablet 10 mg PO DAILY RF: 0 diazepam 2 mg Tablet 2 mg PO TID 5 Days Qty: 15 RF: 0 esomeprazole magnesium [Nexium] 40 mg Capsule,Delayed Release(Dr/Ec) 40 mg PO DAILY Qty: 30 RF: 0 pregabalin [Lyrica] 50 mg Capsule 150 mg PO BID Qty: 60 RF: 0 prednisone 20 mg Tablet 40 mg PO DAILY 5 Days Qty: 5 RF: 0 oxycodone-acetaminophen 5-325 mg Tablet 1 tab PO Q4H PRN PRN5 Days Qty: 20 RF: 0 ranitidine HCl 150 mg Tablet 150 mg PO BID Qty: 60 RF: 0 Medical Decision Making Patient here with abnormal labs including marked hyperglycemia, worsening renal failure and hyperkalemia. IV established and fluids started. Repeat labs ordered. EKG shows peaked t waves. Calcium gluconate and insulin bolus ordered for hyperkalemia. Will then start insulin drip for glucose and continue fluids. Call placed to [facility] for potential transfer to dialysis capable facility. Patient's labs tonight with stable hemoglobin. Creatinine is worse, now at 4.6 but potassium a little better at 6.1 and glucose better at 1025. No anion gap and normal bicarb so not DKA. Sodium is 123 but corrects to 145. Case discussed with critical care at [facility]. Patient accepted in transfer to ICU at [facility]. Will need to go on saline drip and insulin infusion. Discussed with patient who understands need for transfer. Medical Records Medical records reviewed: Yes I reviewed the patient's medical records. Lab Data Lab results reviewed: Yes I reviewed the patient's lab results. ECG Data Attestation: I personally reviewed and interpreted this ECG (s) as follows: Prior ECG tracings: not available for review Interpretation: NSR at 58 with normal axis and intervals but peaked T waves present. HPI General Mode of arrival: ambulatory . Date/Time Provider Initiated Documentation: 08/09/18 22:09 . Limitations to Documentation: no limitations . Information obtained by: patient and old records reviewed . HPI Narrative: Patient presents to ED after receiving call at home with lab abnormalities including markedly elevated glucose. [facility]. He was sent home on prednisone. He had previously scheduled follow up today for his diabetes and CRF. His pain has been better and he has been feeling better in general though his sugars have been a little high. He did note that he was drinking and urinating more today than usual. Related Data Home Medications Medication Instructions Recorded Confirmed insulin syringe-needle U-100 [BD 03/21/13 02/02/18 Insulin Syringe] blood-glucose meter [FreeStyle #1 kit 03/24/13 Lite Meter] pen needle, diabetic #180 unit 03/24/13 lancets #300 ea 08/08/13 insulin aspart U-100 [Novolog 5 - 20 unit SQ DIRECTED #3 pen 10/19/13 Flexpen U-100 Insulin] furosemide 40 mg PO DAILY 07/30/17 08/09/18 amlodipine 10 mg PO DAILY 08/05/18 08/09/18 aspirin 81 mg PO DAILY 08/05/18 08/09/18 ferrous sulfate 650 mg PO DAILY 08/05/18 08/09/18 insulin detemir U-100 [Levemir 55 units SUBCUT HS 08/05/18 08/09/18 FlexTouch U-100 Insuln] methocarbamol 750 mg PO QID 08/05/18 08/09/18 diazepam 2 mg PO TID 5 Days #15 tab 08/07/18 08/09/18 esomeprazole magnesium [Nexium] 40 mg PO DAILY #30 cap 08/07/18 08/09/18 oxycodone-acetaminophen 1 tab PO Q4H PRN PRN 5 Days #20 tab 08/07/18 08/09/18 prednisone 40 mg PO DAILY 5 Days #5 tab 08/07/18 08/09/18 pregabalin [Lyrica] 150 mg PO BID #60 cap 08/07/18 08/09/18 ranitidine HCl 150 mg PO BID #60 tab 08/07/18 08/09/18 Previous Rx's Medication Instructions Recorded diazepam 2 mg PO TID 5 Days #15 tab 08/07/18 esomeprazole magnesium [Nexium] 40 mg PO DAILY #30 cap 08/07/18 oxycodone-acetaminophen 1 tab PO Q4H PRN PRN 5 Days #20 tab 08/07/18 prednisone 40 mg PO DAILY 5 Days #5 tab 08/07/18 pregabalin [Lyrica] 150 mg PO BID #60 cap 08/07/18 ranitidine HCl 150 mg PO BID #60 tab 08/07/18 Allergies Allergy/AdvReac Type Severity Reaction Status Date / Time clindamycin Allergy Mild HIVES Unverified 08/05/18 12:18 Penicillins Allergy Mild Unverified 08/05/18 12:18 sertraline AdvReac Mild Nausea Unverified 08/05/18 12:18 gabapentin AdvReac ANKLE EDEMA Unverified 08/05/18 12:18 General Stated Complaint: Diabetes MONIKA: 2 Review of Systems Review of Systems Unobtainable due to (acuity of medical condition) [facility] Medical History CKD (chronic kidney disease) (Chronic) Peripheral neuropathy (Chronic) Hypertension (Chronic) Diabetes mellitus (Chronic) Chronic Kidney disease stage 3 Social History Smoking/Tobacco Use Status: Current-Occasional Surgical History Cholecystectomy Colonoscopy - MAC (10/08/16) Exam Const General: cooperative, no acute distress and well developed Nutritional Appearance: well nourished Orientation: alert and oriented x3 HENMT Head: normocephalic and atraumatic Mouth: mucous membranes dry Neck Neck: normal visual inspection, trachea midline and supple Resp Effort & Inspection: normal respiratory effort Auscultation: clear to auscultation bilaterally Cardio Rate: regular rate Rhythm: regular rhythm Heart Sounds: S1 normal and S2 normal GI Palpation: soft, not firm and nontender Back/Spine/Pelvis Thoracic/Lumbar Spine: pain with thoraco-lumbar ROM and thoraco-lumbar ROM limited Skin General skin exam: no rashes or lesions noted Neuro General: alert, oriented x3, gait abnormal (limping due to back pain), no focal motor deficits and CN's II-XI intact bilaterally Extrem General: normal to inspection and no clubbing, cyanosis or edema Course Vital Signs Temperature 97.3 F L 08/09/18 21:51 Pulse 62 08/09/18 21:51 Respiratory Rate 20 08/09/18 21:51 Blood Pressure 204/82 H 08/09/18 21:51 Pulse Oximetry 96 08/09/18 21:51 Temperature 97.3 F L 08/09/18 21:51 Temperature Source Skin 08/09/18 21:51 Pulse 62 08/09/18 21:51 Pulse 57 L 08/09/18 22:00 Respiratory Rate 15 08/09/18 22:00 Respiratory Effort Non-Labored 08/09/18 22:10 Blood Pressure 204/82 H 08/09/18 21:51 Blood Pressure Position Sitting 08/09/18 21:51 Pulse Oximetry 95 08/09/18 22:00 Oxygen Delivery Method Room Air 08/09/18 21:51 Oxygen Flow Rate 0 08/09/18 21:51 Pain Level 0 08/09/18 21:51 Critical Care Time Critical Care Time: Yes Total Critical Care Time: 60 Attestation: Critical labs needing to be addressed immediately to prevent deterioration.
[2018-08-09] MEDS: Calcium Gluconate 4.65 MEQ/10 ML VIAL 4.65 MG IVP (22:47)
[2018-08-09 22:50] LABS: HCO3 (Venous) 22 mmol/L (22-28); O2 Sat (Venous) 95 % (70-80); TCO2 (Venous) 21 mmol/L (22-29); pCO2 (Venous) 48 mm/Hg (34-47); pH (Venous) 7.27 (7.32-7.43); pO2 (Venous) 71 mm/Hg (28-44)
[2018-08-09 22:52] LABS: Abs Immature Grans 0.06 k/cumm (0.0-0.09); Absolute Basophil Count 0.01 k/cumm (0.0-0.2); Absolute Eosinophil Count 0.06 k/cumm (0.0-0.7); Absolute Lymphocyte Count 0.89 k/cumm (1.2-3.4); Absolute Monocyte Count 1.09 k/cumm (0.11-0.7); Absolute Neutrophil Count 11.86 k/cumm (1.2-6.7); Basophils % 0.1; Eosinophils % 0.4; HCT 28.2 % (40.0-50.0); HGB 9.4 g/dL (13.5-17.5); Immature Grans % 0.4; Lymphocytes % 6.4; Mean Corp. HGB Concentration 33.3 g/dL (32.0-36.0); Mean Corpuscular Volume 90.1 fL (80-95); Mean Platelet Volume 12.7 fL (8.0-11.0); Monocytes % 7.8; Neutrophils % 84.9; Platelet Count 230 x1000/uL (130-400); RBC 3.13 m/cumm (4.50-6.00); RBC Distribution Width 12.4 % (11.8-14.1); White Blood Cell Count 13.97 k/cumm (4.4-10.8)
[2018-08-09] MEDS: Insulin REGULAR-Human 100 UNITS/ML UNIT 10 UNITS IV (23:01)
[2018-08-09 23:03] LABS: Anion Gap 8.2 mmol/L (3-11); CO2 22.8 mmol/L (21.0-32.0); Calcium 7.3 mg/dL (8.5-10.1); Chloride 92 mmol/L (98-107)
[2018-08-09 23:13] LABS: Glucose 1025 mg/dL (70-100)
[2018-08-09 23:14] LABS: BUN 82 mg/dL (7-18); CREATININE 4.64 mg/dL (0.70-1.30)
[2018-08-09 23:15] LABS: Potassium 6.1 mmol/L (3.5-5.1); Sodium 123 mmol/L (136-145)
[2018-08-09 23:39] LABS: Bilirubin Negative (Negative); Blood Small (Negative); Clarity Clear; Glucose 500 mg/dL (Negative); Ketones Negative (Negative); Leukocyte Esterase Negative (Negative); Nitrite Negative (Negative); Specific Gravity <= 1.005 (1.005-1.025); Urobilinogen 0.2 EU/dL (Up TO 0.2); pH 5.5 (5-8)
[2018-08-09 23:49] LABS: Bacteria Negative HPF (Negative); C & S Indicated? No; Casts Negative LPF (Negative); Crystals Negative HPF (Negative); Epithelial Cells Rare HPF (Negative); Mucus Negative (Negative); RBC 0-2 (0-2); WBC 0-2 HPF (0-5)
[2018-08-10] VITALS (21 sets, daily range): BP systolic 165–176; BP diastolic 74–85; PULSE 56–88; RESP 10–20; TEMP 37.1; O2SAT 92–97
== END 2018-08-10 02:03 | disposition short-term general hospital (02) ==
PROVIDERS: Emergency Provider Emergency Medicine; PCP Nurse Practitioner Family
DX: E11.65 Type 2 diabetes mellitus with hyperglycemia (principal); E87.5 Hyperkalemia; N17.9 Acute kidney failure, unspecified; I12.9 Hypertensive chronic kidney disease with stage 1 through stage 4 chronic kidney disease, or unspecified chronic kidney disease; N18.3 Chronic kidney disease, stage 3 (moderate); E11.22 Type 2 diabetes mellitus with diabetic chronic kidney disease; Z79.4 Long term (current) use of insulin; I10 Essential (primary) hypertension
CPT/HCPCS: 36415; 36416; 80048; 82805; 82962; 93005; 96361; 96365; 96366; 96375; 99291; 81003; 81015; 85025; 93010; J0610

== ENCOUNTER 2018-08-15 15:05 | Outpatient (REF) | payer BC, SELFPAY ==
[2018-08-15 18:37] LABS: ALT 55 U/L (12-78); AST 29 U/L (15-37); Albumin 2.7 g/dL (3.4-5.0); Alkaline Phosphatase 121 U/L (46-116); Anion Gap 5.4 mmol/L (3-11); BUN 49 mg/dL (7-18); Bilirubin, Total 0.2 mg/dL (0.2-1.0); CO2 29.6 mmol/L (21.0-32.0); CREATININE 3.08 mg/dL (0.70-1.30); Calcium 8.6 mg/dL (8.5-10.1); Chloride 105 mmol/L (98-107); Estimated GFR 21.51 (mL/min/1.73m2); Glucose 168 mg/dL (70-100); Potassium 5.2 mmol/L (3.5-5.1); Sodium 140 mmol/L (136-145); Total Protein 5.8 g/dL (6.4-8.2)
== END 2018-08-15 15:25 ==
LOC: NCHCN 15:05
PROVIDERS: PCP Nurse Practitioner Family; Visit Provider Nurse Practitioner Family
DX: E87.5 Hyperkalemia (principal)
CPT/HCPCS: 80053

== ENCOUNTER 2018-09-06 15:11 | Outpatient (REF) | payer BC, SELFPAY ==
[2018-09-06 18:48] LABS: HCT 28.3 % (40.0-50.0); HGB 9.3 g/dL (13.5-17.5); Mean Corp. HGB Concentration 32.9 g/dL (32.0-36.0); Mean Corpuscular Hemoglobin 29.9 pg (27.0-33.0); Mean Platelet Volume 11.5 fL (8.0-11.0); Platelet Count 309 x1000/uL (130-400); RBC 3.11 m/cumm (4.50-6.00); RBC Distribution Width 13.8 % (11.8-14.1); White Blood Cell Count 7.31 k/cumm (4.4-10.8)
[2018-09-06 18:49] LABS: ALT 24 U/L (12-78); AST 16 U/L (15-37); Albumin 2.7 g/dL (3.4-5.0); Alkaline Phosphatase 120 U/L (46-116); Anion Gap 8.8 mmol/L (3-11); BUN 43 mg/dL (7-18); Bilirubin, Total 0.2 mg/dL (0.2-1.0); CO2 25.2 mmol/L (21.0-32.0); Calcium 8.7 mg/dL (8.5-10.1); Chloride 101 mmol/L (98-107); Estimated GFR 16.93 (mL/min/1.73m2); Glucose 383 mg/dL (70-100); Sodium 135 mmol/L (136-145); Total Protein 5.9 g/dL (6.4-8.2)
[2018-09-06 20:08] LABS: CREATININE 3.79 mg/dL (0.70-1.30)
== END 2018-09-06 15:31 ==
LOC: NCHCN 15:11
PROVIDERS: PCP Nurse Practitioner Family; Visit Provider Nurse Practitioner Family
DX: N18.3 Chronic kidney disease, stage 3 (moderate) (principal)
CPT/HCPCS: 80053; 85027

== ENCOUNTER 2018-10-17 15:44 | Outpatient (CLI) | payer BC, SELFPAY ==
--- NOTE | 2018-10-17 15:35 | DI.RAD_ITS ---
SYMPTOMS/DIAGNOSIS: COUGH, R05 PA AND LATERAL CHEST: The heart is not enlarged. There are patchy intrapulmonary radiodensities at the right lung base, particularly laterally, which were not present on previous examination of 08/02/17. Minimal patchy densities may be present in the left lung base as well. No pleural effusions seen. CONCLUSION: Findings suggesting basilar pneumonia, predominantly on the right.
[2018-10-17 16:07] LABS: Abs Immature Grans 0.01 k/cumm (0.0-0.09); Absolute Basophil Count 0.05 k/cumm (0.0-0.2); Absolute Eosinophil Count 0.22 k/cumm (0.0-0.7); Absolute Lymphocyte Count 1.97 k/cumm (1.2-3.4); Absolute Monocyte Count 1.02 k/cumm (0.11-0.7); Absolute Neutrophil Count 2.79 k/cumm (1.2-6.7); Basophils % 0.8; Eosinophils % 3.6; HCT 32.2 % (40.0-50.0); HGB 10.5 g/dL (13.5-17.5); Immature Grans % 0.2; Lymphocytes % 32.5; Mean Corp. HGB Concentration 32.6 g/dL (32.0-36.0); Mean Corpuscular Hemoglobin 30.3 pg (27.0-33.0); Mean Corpuscular Volume 92.8 fL (80-95); Monocytes % 16.8; Neutrophils % 46.1; Platelet Count 304 x1000/uL (130-400); RBC 3.47 m/cumm (4.50-6.00); RBC Distribution Width 13.5 % (11.8-14.1); White Blood Cell Count 6.06 k/cumm (4.4-10.8)
[2018-10-17 17:05] LABS: ALT 30 U/L (12-78); AST 20 U/L (15-37); Albumin 2.8 g/dL (3.4-5.0); Alkaline Phosphatase 128 U/L (46-116); BUN 42 mg/dL (7-18); Bilirubin, Total 0.3 mg/dL (0.2-1.0); Calcium 9.2 mg/dL (8.5-10.1); Chloride 103 mmol/L (98-107); Estimated GFR 16.78 (mL/min/1.73m2); Glucose 292 mg/dL (70-100); Potassium 4.7 mmol/L (3.5-5.1); Sodium 138 mmol/L (136-145); Total Protein 6.3 g/dL (6.4-8.2)
[2018-10-17 18:13] LABS: CREATININE 3.82 mg/dL (0.70-1.30)
== END 2018-10-17 16:04 ==
PROVIDERS: PCP Nurse Practitioner Family; Visit Provider Nurse Practitioner Family
DX: R05 Cough (principal); J18.9 Pneumonia, unspecified organism; N18.3 Chronic kidney disease, stage 3 (moderate)
CPT/HCPCS: 36415; 80053; 71046; 85025

== ENCOUNTER 2019-03-06 17:39 | Emergency (ER) | payer BC, SELFPAY ==
[2019-03-06] VITALS (34 sets, daily range): BP systolic 149–166; BP diastolic 56–82; PULSE 65–80; RESP 12–22; TEMP 37; O2SAT 90–99
--- NOTE | 2019-03-06 18:19 | W.ED.GENAD ---
Discharge Plan Discharge Details Chief Complaint: CVA/TIA Primary Care Provider: Adeola Villegas ED Provider: Manasa Figueroa Home Meds and New Rx's Prescriptions: No Action insulin syringe-needle U-100 [BD Insulin Syringe] 1 EACH syringe 1 ea Sub-Q TID RF: 0 pen needle, diabetic 1 EACH needle 1 ea Sub-Q AC Qty: 180 RF: 12 blood-glucose meter [FreeStyle Lite Meter] 1 EACH kit 1 ea Miscellaneous TID Qty: 1 RF: 0 lancets 1 EACH misc 1 ea Intradermal TID Qty: 300 RF: 4 TEST STRIPS 1 EACH strip 1 ea Miscellaneous TID Qty: 270 RF: 4 furosemide 20 MG tablet 40 mg PO DAILY RF: 0 methocarbamol 750 mg Tablet 750 mg PO QID RF: 0 aspirin 81 mg Tablet,Chewable 81 mg PO DAILY RF: 0 insulin detemir U-100 [Levemir FlexTouch U-100 Insuln] 100 unit/mL (3 mL) Insulin Pen 55 units subcut HS RF: 0 ferrous sulfate 325 mg (65 mg iron) Tablet 650 mg PO DAILY RF: 0 amlodipine 10 mg Tablet 10 mg PO DAILY RF: 0 esomeprazole magnesium [Nexium] 40 mg Capsule,Delayed Release(Dr/Ec) 40 mg PO DAILY Qty: 30 RF: 0 pregabalin [Lyrica] 50 mg Capsule 150 mg PO BID Qty: 60 RF: 0 ranitidine HCl 150 mg Tablet 150 mg PO BID Qty: 60 RF: 0 Discharge Data Discharge Date/Time-TO BE ENTERED AT DEPARTURE: 03/06/19 22:45 Medical Decision Making Gerson Bruner is a 53 y/o man with history of chronic kidney disease on dialysis, diabetes, hypertension who presented to the emergency department with 3 days of intermittent right arm, lateral rib, and leg tingling with intermittent right arm and leg weakness, symptoms not progressive. On exam patient is well and nontoxic appearing. He has no motor deficit of the extremities, however he does have a pronator drift on the right and an ataxic gait. Cranial nerves are intact. Concern for CVA versus less likely spinal process, doubt infectious or metabolic etiology at this time, symptoms present prior to last dialysis. Exam/history not consistent with meningitis, sepsis, ACS, PE, aortic or other peripheral vascular pathology. Doubt cord etiology. Plan for EKG, screening labs, CT head and cervical spine. No MRI available at this time. Will monitor and reassess. CT head and C-spine shows left sided lacunar infarct of undetermined age, also right-sided neural foraminal narrowing at C4-C5. Call placed to [facility] for neurology recommendations/transfer when imaging resulted. Images sent to [facility]. Discussed patient presentation and results with Dr. Romero of neurology at [facility], who recommends admission, he suspects CVA as opposed to cervical spine etiology. Given the patient with borderline hyperkalemia at 5.4 and scheduled dialysis tomorrow, patient cannot be admitted here as no dialysis is available. Plan for transfer to [facility] for further eval and treatment. No further recommendations from neurology at this time. We did discuss treatment of hyperkalemia prior to transfer, however with potassium less than 5.5 and no EKG changes, no indication for emergent intervention. Will repeat EKG prior to discharge. Plan for transfer to [facility] with C-spine precautions intact for further evaluation. Patient verbalized understanding of the plan for transfer to [facility] and was amenable. All questions were answered. Medical Records Medical records reviewed: Yes I reviewed the patient's medical records. Imaging Data Radiologic Study: Attestation: I personally reviewed and interpreted this imaging study as follows: Radiologist's impression: PA AND LATERAL CHEST: Comparison is made with [id number]. The heart is enlarged compared with the previous exam which may be secondary to technique. The lungs are reasonably well inflated and appear clear. IMPRESSION: No acute abnormality. CT Head Without Contrast EXAM DATE/TIME: 03/06/2019 6:42 PM CLINICAL HISTORY: 53 years old, male; Signs and symptoms; Weakness, extremity; Patient HX: Right sided weakness TECHNIQUE: Imaging protocol: Axial computed tomography images of the head without contrast. Coronal and sagittal reformatted images were created and reviewed. COMPARISON: No relevant prior studies available. FINDINGS: Brain: 3 mm hypodense focus within the posterior limb of the left internal capsule concerning for a lacunar infarct of indeterminate age. No evidence for acute transcortical infarct. No mass effect or midline shift. No extra-axial collection. No acute intracranial hemorrhage. Basal cisterns are patent. Ventricles: Normal. No ventriculomegaly. Bones/joints: Unremarkable. No acute fracture. Sinuses: Visualized sinuses are unremarkable. No fluid levels. Mastoid air cells: Visualized mastoid air cells are well aerated. No mastoid effusion. Soft tissues: Unremarkable. IMPRESSION: 1. 3 mm hypodense focus within the posterior limb of the left internal capsule concerning for a lacunar infarct of indeterminate age. 2. No evidence for acute transcortical infarct, acute intracranial hemorrhage, or mass effect. CT Cervical Spine Without Contrast EXAM DATE/TIME: 03/06/2019 6:42 PM CLINICAL HISTORY: 53 years old, male; Signs and symptoms; Weakness, extremity; Patient HX: Right sided weakness TECHNIQUE: Imaging protocol: Axial computed tomography images of the cervical spine without contrast. Coronal and sagittal reformatted images were created and reviewed. COMPARISON: No relevant prior studies available. FINDINGS: Vertebrae: No spondylolisthesis. No acute fracture or traumatic subluxation. The atlantooccipital and atlantoaxial articulations are intact. Facet joint alignments are maintained. Multilevel degenerative changes of the cervical spine. Discs/Spinal canal/Neural foramina: Age-related degenerative disc disease. Other bones/joints: Occipital condyles are intact. Prevertebral Space: No prevertebral soft tissue swelling. Soft tissues: Unremarkable. Lungs: Lung apices are normal. IMPRESSION: Multilevel degenerative changes of the cervical spine. This is most impressive on the right side where there is severe right C4-C5 neural foraminal narrowing. Lab Data Lab results reviewed: Yes I reviewed the patient's lab results. Laboratory Tests Range/Units 03/06/19 03/06/19 03/06/19 18:40 18:40 18:40 WBC (4.4-10.8) k/cumm 7.30 RBC (4.50-6.00) m/cumm 3.28 L Hgb (13.5-17.5) g/dL 10.5 L Hct (40.0-50.0) % 32.4 L MCV (80-95) fL 98.8 H MCH (27.0-33.0) pg 32.0 MCHC (32.0-36.0) g/dL 32.4 RDW (11.8-14.1) % 18.2 H Plt Count (130-400) x1000/uL 243 MPV (8.0-11.0) fL 10.9 Immature Gran % 0.3 Neutrophils % 56.9 Lymphocytes % 28.1 Monocytes % 11.0 Eosinophils % 3.2 Basophils % 0.5 Absolute Neutrophils (1.2-6.7) k/cumm 4.16 Absolute Lymphocytes (1.2-3.4) k/cumm 2.05 Absolute Monocytes (0.11-0.7) k/cumm 0.80 H Absolute Eosinophils (0.0-0.7) k/cumm 0.23 Absolute Basophils (0.0-0.2) k/cumm 0.04 Differential Comment Rbc morph reviewed RBC Morphology See below Anisocytosis 2+ Macrocytosis 1+ PT (9.3-11.0) sec 9.3 INR (0.9-1.1) 0.9 Sodium (136-145) mmol/L 137 Potassium (3.5-5.1) mmol/L 5.4 H Chloride (98-107) mmol/L 99 Carbon Dioxide (21.0-32.0) mmol/L 30.7 Anion Gap (3-11) mmol/L 7.3 BUN (7-18) mg/dL 46 H Creatinine (0.70-1.30) mg/dL 5.20 H* Estimated GFR/1.73 m2 (mL/min/1.73m2) 11.71 Glucose (70-100) mg/dL 170 H Calcium (8.5-10.1) mg/dL 8.6 Total Bilirubin (0.2-1.0) mg/dL 0.3 AST (15-37) U/L 22 ALT (12-78) U/L 37 Alkaline Phosphatase (46-116) U/L 141 H Troponin I (0.00-0.06) ng/mL < 0.02 Total Protein (6.4-8.2) g/dL 7.0 Albumin (3.4-5.0) g/dL 3.1 L Range/Units 03/06/19 22:30 WBC (4.4-10.8) k/cumm RBC (4.50-6.00) m/cumm Hgb (13.5-17.5) g/dL Hct (40.0-50.0) % MCV (80-95) fL MCH (27.0-33.0) pg MCHC (32.0-36.0) g/dL RDW (11.8-14.1) % Plt Count (130-400) x1000/uL MPV (8.0-11.0) fL Immature Gran % Neutrophils % Lymphocytes % Monocytes % Eosinophils % Basophils % Absolute Neutrophils (1.2-6.7) k/cumm Absolute Lymphocytes (1.2-3.4) k/cumm Absolute Monocytes (0.11-0.7) k/cumm Absolute Eosinophils (0.0-0.7) k/cumm Absolute Basophils (0.0-0.2) k/cumm Differential Comment RBC Morphology Anisocytosis Macrocytosis PT (9.3-11.0) sec INR (0.9-1.1) Sodium (136-145) mmol/L Potassium (3.5-5.1) mmol/L Chloride (98-107) mmol/L Carbon Dioxide (21.0-32.0) mmol/L Anion Gap (3-11) mmol/L BUN (7-18) mg/dL Creatinine (0.70-1.30) mg/dL Estimated GFR/1.73 m2 (mL/min/1.73m2) Glucose (70-100) mg/dL Calcium (8.5-10.1) mg/dL Total Bilirubin (0.2-1.0) mg/dL AST (15-37) U/L ALT (12-78) U/L Alkaline Phosphatase (46-116) U/L Troponin I (0.00-0.06) ng/mL Cancelled Total Protein (6.4-8.2) g/dL Albumin (3.4-5.0) g/dL ECG Data Attestation: I personally reviewed and interpreted this ECG (s) as follows: Interpretation: EKG shows sinus rhythm at 68, normal axis, no acute ischemic changes, nondiagnostic EKG EKG #2 shows sinus rhythm at 70, normal axis, QRS 103. Unchanged from prior. HPI General Mode of arrival: ambulatory. Date/Time Provider Initiated Documentation: 03/06/19 18:18. Limitations to Documentation: no limitations. Information obtained by: patient, family, RN notes reviewed and old records reviewed. HPI Narrative: Gerson Bruner is a 53 y/o man with history of hypertension, diabetes, chronic kidney disease on dialysis presenting to the emergency department with right-sided weakness. Patient reports that over the past 3 days he has noticed an intermittent tingling sensation in his right arm, right lateral ribs, and right leg. He reports that this sensation comes and goes, and he does not always have tingling in his arm and leg concurrently. Patient also reports that he has noticed weakness in his right arm and right leg, to the point where he feels that his right leg gives out on him and he has fallen several times because of this. Patient reports that the symptoms are new and have not occurred in the past. Patient reports that his right arm and leg currently do not feel weak, but they do feel tingly. He denies numbness. He denies any numbness, tingling, or weakness on the left side. Patient reports that he has not hit his head when he has fallen. He denies having any pain. He denies fevers, shortness of breath, cough, vomiting, diarrhea. He continues to make urine and has had no urinary changes or changes in bowel function. Patient reports that he had dialysis as scheduled 2 days ago, and is due for dialysis tomorrow. Has been eating and drinking as usual. No recent illness. Patient is accompanied by his who also provides the history, and she reports that she noticed that patient's speech seemed slurred earlier today over the phone, but now is at baseline. She denies any altered mental status, behavior changes. Patient reports that he uses marijuana, denies alcohol, denies tobacco. Related Data Home Medications Medication Instructions Recorded Confirmed insulin syringe-needle U-100 [BD 03/21/13 02/02/18 Insulin Syringe] blood-glucose meter [FreeStyle #1 kit 03/24/13 Lite Meter] pen needle, diabetic #180 unit 03/24/13 lancets #300 ea 08/08/13 furosemide 40 mg PO DAILY 07/30/17 08/09/18 amlodipine 10 mg PO DAILY 08/05/18 08/09/18 aspirin 81 mg PO DAILY 08/05/18 08/09/18 ferrous sulfate 650 mg PO DAILY 08/05/18 08/09/18 insulin detemir U-100 [Levemir 55 units SUBCUT HS 08/05/18 08/09/18 FlexTouch U-100 Insuln] methocarbamol 750 mg PO QID 08/05/18 08/09/18 esomeprazole magnesium [Nexium] 40 mg PO DAILY #30 cap 08/07/18 08/09/18 pregabalin [Lyrica] 150 mg PO BID #60 cap 08/07/18 08/09/18 ranitidine HCl 150 mg PO BID #60 tab 08/07/18 08/09/18 Previous Rx's Medication Instructions Recorded esomeprazole magnesium [Nexium] 40 mg PO DAILY #30 cap 08/07/18 pregabalin [Lyrica] 150 mg PO BID #60 cap 08/07/18 ranitidine HCl 150 mg PO BID #60 tab 08/07/18 Allergies Allergy/AdvReac Type Severity Reaction Status Date / Time clindamycin Allergy Mild HIVES Unverified 08/05/18 12:18 Penicillins Allergy Mild Unverified 08/05/18 12:18 sertraline AdvReac Mild Nausea Unverified 08/05/18 12:18 gabapentin AdvReac ANKLE EDEMA Unverified 08/05/18 12:18 General Stated Complaint: CVA/TIA MONIKA: 2 Review of Systems Review of Systems Constitutional: denies fevers Eyes: denies eye pain ENT: denies facial pain, dental pain, sore throat Cardiovascular: denies chest pain, edema Respiratory: denies SOB, cough GI: denies abdominal pain, vomiting, diarrhea : denies flank pain MSK: denies back pain, neck pain, arthralgias, myalgias Skin: denies rash Neuro: denies headaches, numbness, reports tingling, weakness as per HPI [facility] Medical History CKD (chronic kidney disease) (Chronic) Peripheral neuropathy (Chronic) Hypertension (Chronic) Diabetes mellitus (Chronic) Chronic Kidney disease stage 3 Social History Smoking/Tobacco Use Status: Former Tobacco Use Drug use: Daily Substance use type: marijuana Do you feel safe at home: Yes Do you feel safe in your relationship?: Yes Exam Narrative Exam Narrative: Constitutional: well and [id number], pleasant, conversing normally HENT: head atraumatic/normocephalic/normal inspection, mucous membranes moist Eyes: conjunctiva normal, sclera normal, pupils 3mm b/l Neck: no stridor, normal ROM, trachea midline, no tenderness to palpation Chest: normal inspection Resp: normal work of breathing, LCTAB Cardio: normal rate, normal rhythm, no murmur appreciated GI: abdomen soft, non-tender, non-distended Back: normal inspection, no rash Skin: warm, dry, normal color, no rash Neuro: alert, not altered, normal speech, cranial nerves II through XII intact, motor 5 out of 5 upper and lower extremities, ataxic gait, positive pronator drift on right, no sensory deficit, normal tone Ext: no edema Psych: normal mood, normal affect, normal behavior Course Vital Signs Temperature 37 C 03/06/19 18:03 Pulse 70 03/06/19 18:03 Respiratory Rate 16 03/06/19 18:03 Blood Pressure 166/78 H 03/06/19 18:03 Pulse Oximetry 96 03/06/19 18:03 Temperature 37 C 03/06/19 18:03 Temperature Source Skin 03/06/19 18:03 Pulse 70 03/06/19 18:03 Respiratory Rate 16 03/06/19 18:03 Respiratory Effort Non-Labored 03/06/19 18:07 Blood Pressure 166/78 H 03/06/19 18:03 Pulse Oximetry 96 03/06/19 18:03 Oxygen Delivery Method Room Air 03/06/19 18:03 Oxygen Flow Rate 0 03/06/19 18:03
[2019-03-06 18:49] LABS: Abs Immature Grans 0.02 k/cumm (0.0-0.09); Absolute Basophil Count 0.04 k/cumm (0.0-0.2); Absolute Eosinophil Count 0.23 k/cumm (0.0-0.7); Absolute Lymphocyte Count 2.05 k/cumm (1.2-3.4); Absolute Neutrophil Count 4.16 k/cumm (1.2-6.7); Basophils % 0.5; Eosinophils % 3.2; HCT 32.4 % (40.0-50.0); HGB 10.5 g/dL (13.5-17.5); Immature Grans % 0.3; Lymphocytes % 28.1; Mean Corp. HGB Concentration 32.4 g/dL (32.0-36.0); Mean Corpuscular Volume 98.8 fL (80-95); Mean Platelet Volume 10.9 fL (8.0-11.0); Neutrophils % 56.9; Platelet Count 243 x1000/uL (130-400); RBC 3.28 m/cumm (4.50-6.00); RBC Distribution Width 18.2 % (11.8-14.1)
--- NOTE | 2019-03-06 18:55 | DI.RAD_ITS ---
SYMPTOMS/DIAGNOSIS: WEAKNESS PA AND LATERAL CHEST: Comparison is made with [id number]. The heart is enlarged compared with the previous exam which may be secondary to technique. The lungs are reasonably well inflated and appear clear. IMPRESSION: No acute abnormality.
--- NOTE | 2019-03-06 18:55 | DI.CT_ITS ---
SYMPTOMS/DIAGNOSIS: RIGHT SIDED WEAKNESS NONCONTRAST HEAD CT: Comparison is made with [id number]. There is a question of a tiny hypodensity in the posterior limb of the left internal capsule. This could represent a lacunar infarct of indeterminate age. The findings were not definitely seen on the previous exam. There is no evidence of hemorrhage or mass. There is no significant atrophy. The ventricles are normal in size. The sinuses and mastoid air cells appear clear. IMPRESSION: Question of a tiny hypodensity in the posterior limb of the left internal capsule which could represent a lacunar infarct of indeterminate age. CT OF THE CERVICAL SPINE: There is no evidence of fracture or subluxation. Degenerative changes are mild, greatest at C 4 - 5 and C 5 - 6. The visualized portions of the lung apices show a few small blebs. No pneumothorax is seen. IMPRESSION: Mild degenerative changes. No acute abnormality.
[2019-03-06 19:04] LABS: INR 0.9 (0.9-1.1); Prothrombin Time 9.3 sec (9.3-11.0)
[2019-03-06 19:13] LABS: ALT 37 U/L (12-78); AST 22 U/L (15-37); Albumin 3.1 g/dL (3.4-5.0); Alkaline Phosphatase 141 U/L (46-116); Anion Gap 7.3 mmol/L (3-11); BUN 46 mg/dL (7-18); Bilirubin, Total 0.3 mg/dL (0.2-1.0); CO2 30.7 mmol/L (21.0-32.0); Calcium 8.6 mg/dL (8.5-10.1); Chloride 99 mmol/L (98-107); Estimated GFR 11.71 (mL/min/1.73m2); Glucose 170 mg/dL (70-100); Potassium 5.4 mmol/L (3.5-5.1); Sodium 137 mmol/L (136-145)
--- NOTE | 2019-03-06 19:13 | DI.VRAD_ITS ---
EXAM: XR Chest, 2 Views EXAM DATE/TIME: 03/06/2019 6:21 PM CLINICAL HISTORY: 53 years old, male; Signs and symptoms; Other: Weakness TECHNIQUE: Imaging protocol: XR of the chest, 2 views. COMPARISON: CR XR CHEST 2V PA LATERAL 10/17/2018 3:28 PM FINDINGS: Lungs: Clear lungs. Pleural space: No pneumothorax. No sizable pleural effusion. Heart/Mediastinum: No cardiomegaly. Bones/joints: Unremarkable. IMPRESSION: Clear lungs. Dictated and Authenticated by: Yusuf Darnell MD. Ordering:RAFI Goel MD
[2019-03-06 19:21] LABS: Anisocytosis 2+; Diff Comment RBC Morph Reviewed; Macrocytosis 1+
[2019-03-06 19:22] LABS: Troponin I < 0.02 ng/mL (0.00-0.06)
--- NOTE | 2019-03-06 19:24 | DI.VRAD_ITS ---
EXAM: CT Head Without Contrast EXAM DATE/TIME: 03/06/2019 6:42 PM CLINICAL HISTORY: 53 years old, male; Signs and symptoms; Weakness, extremity; Patient HX: Right sided weakness TECHNIQUE: Imaging protocol: Axial computed tomography images of the head without contrast. Coronal and sagittal reformatted images were created and reviewed. COMPARISON: No relevant prior studies available. FINDINGS: Brain: 3 mm hypodense focus within the posterior limb of the left internal capsule concerning for a lacunar infarct of indeterminate age. No evidence for acute transcortical infarct. No mass effect or midline shift. No extra-axial collection. No acute intracranial hemorrhage. Basal cisterns are patent. Ventricles: Normal. No ventriculomegaly. Bones/joints: Unremarkable. No acute fracture. Sinuses: Visualized sinuses are unremarkable. No fluid levels. Mastoid air cells: Visualized mastoid air cells are well aerated. No mastoid effusion. Soft tissues: Unremarkable. IMPRESSION: 1. 3 mm hypodense focus within the posterior limb of the left internal capsule concerning for a lacunar infarct of indeterminate age. 2. No evidence for acute transcortical infarct, acute intracranial hemorrhage, or mass effect. The findings were verbally communicated via telephone conference with JAX RIVERA at 7:20 PM EDT on 03/06/2019. The findings were acknowledged and understood. EXAM: CT Cervical Spine Without Contrast EXAM DATE/TIME: 03/06/2019 6:42 PM CLINICAL HISTORY: 53 years old, male; Signs and symptoms; Weakness, extremity; Patient HX: Right sided weakness TECHNIQUE: Imaging protocol: Axial computed tomography images of the cervical spine without contrast. Coronal and sagittal reformatted images were created and reviewed. COMPARISON: No relevant prior studies available. FINDINGS: Vertebrae: No spondylolisthesis. No acute fracture or traumatic subluxation. The atlantooccipital and atlantoaxial articulations are intact. Facet joint alignments are maintained. Multilevel degenerative changes of the cervical spine. Discs/Spinal canal/Neural foramina: Age-related degenerative disc disease. Other bones/joints: Occipital condyles are intact. Prevertebral Space: No prevertebral soft tissue swelling. Soft tissues: Unremarkable. Lungs: Lung apices are normal. IMPRESSION: Multilevel degenerative changes of the cervical spine. This is most impressive on the right side where there is severe right C4-C5 neural foraminal narrowing. Dictated and Authenticated by: Yusuf Darnell MD. Ordering:RAFI Goel MD
--- NOTE | 2019-03-06 20:28 | ED.GENADUL_ITS ---
Discharge Plan Discharge Details Chief Complaint: CVA/TIA Primary Care Provider: Adeola Villegas ED Provider: Manasa Figueroa Home Meds and New Rx's Prescriptions: No Action insulin syringe-needle U-100 [BD Insulin Syringe] 1 EACH syringe 1 ea Sub-Q TID RF: 0 pen needle, diabetic 1 EACH needle 1 ea Sub-Q AC Qty: 180 RF: 12 blood-glucose meter [FreeStyle Lite Meter] 1 EACH kit 1 ea Miscellaneous TID Qty: 1 RF: 0 lancets 1 EACH misc 1 ea Intradermal TID Qty: 300 RF: 4 TEST STRIPS 1 EACH strip 1 ea Miscellaneous TID Qty: 270 RF: 4 furosemide 20 MG tablet 40 mg PO DAILY RF: 0 methocarbamol 750 mg Tablet 750 mg PO QID RF: 0 aspirin 81 mg Tablet,Chewable 81 mg PO DAILY RF: 0 insulin detemir U-100 [Levemir FlexTouch U-100 Insuln] 100 unit/mL (3 mL) Insulin Pen 55 units subcut HS RF: 0 ferrous sulfate 325 mg (65 mg iron) Tablet 650 mg PO DAILY RF: 0 amlodipine 10 mg Tablet 10 mg PO DAILY RF: 0 esomeprazole magnesium [Nexium] 40 mg Capsule,Delayed Release(Dr/Ec) 40 mg PO DAILY Qty: 30 RF: 0 pregabalin [Lyrica] 50 mg Capsule 150 mg PO BID Qty: 60 RF: 0 ranitidine HCl 150 mg Tablet 150 mg PO BID Qty: 60 RF: 0 Discharge Data Discharge Date/Time-TO BE ENTERED AT DEPARTURE: 03/06/19 22:45 Medical Decision Making Gerson Bruner is a 53 y/o man with history of chronic kidney disease on dialysis, diabetes, hypertension who presented to the emergency department with 3 days of intermittent right arm, lateral rib, and leg tingling with intermittent right arm and leg weakness, symptoms not progressive. On exam patient is well and nontoxic appearing. He has no motor deficit of the extremities, however he does have a pronator drift on the right and an ataxic gait. Cranial nerves are intact. Concern for CVA versus less likely spinal process, doubt infectious or metabolic etiology at this time, symptoms present prior to last dialysis. Exam/history not consistent with meningitis, sepsis, ACS, PE, aortic or other peripheral vascular pathology. Doubt cord etiology. Plan for EKG, screening labs, CT head and cervical spine. No MRI available at this time. Will monitor and reassess. CT head and C-spine shows left sided lacunar infarct of undetermined age, also right-sided neural foraminal narrowing at C4-C5. Call placed to [facility] for neurology recommendations/transfer when imaging resulted. Images sent to [facility]. Discussed patient presentation and results with Dr. Romero of neurology at [facility], who recommends admission, he suspects CVA as opposed to cervical spine etiology. Given the patient with borderline hyperkalemia at 5.4 and scheduled dialysis tomorrow, patient cannot be admitted here as no dialysis is available. Plan for transfer to [facility] for further eval and treatment. No further recommendations from neurology at this time. We did discuss treatment of hyperkalemia prior to transfer, however with potassium less than 5.5 and no EKG changes, no indication for emergent intervention. Will repeat EKG prior to discharge. Plan for transfer to [facility] with C-spine precautions intact for further evaluation. Patient verbalized understanding of the plan for transfer to [facility] and was amenable. All questions were answered. Medical Records Medical records reviewed: Yes I reviewed the patient's medical records. Imaging Data Radiologic Study: Attestation: I personally reviewed and interpreted this imaging study as follows: Radiologist's impression: PA AND LATERAL CHEST: Comparison is made with [id number]. The heart is enlarged compared with the previous exam which may be secondary to technique. The lungs are reasonably well inflated and appear clear. IMPRESSION: No acute abnormality. CT Head Without Contrast EXAM DATE/TIME: 03/06/2019 6:42 PM CLINICAL HISTORY: 53 years old, male; Signs and symptoms; Weakness, extremity; Patient HX: Right sided weakness TECHNIQUE: Imaging protocol: Axial computed tomography images of the head without contrast. Coronal and sagittal reformatted images were created and reviewed. COMPARISON: No relevant prior studies available. FINDINGS: Brain: 3 mm hypodense focus within the posterior limb of the left internal capsule concerning for a lacunar infarct of indeterminate age. No evidence for acute transcortical infarct. No mass effect or midline shift. No extra-axial collection. No acute intracranial hemorrhage. Basal cisterns are patent. Ventricles: Normal. No ventriculomegaly. Bones/joints: Unremarkable. No acute fracture. Sinuses: Visualized sinuses are unremarkable. No fluid levels. Mastoid air cells: Visualized mastoid air cells are well aerated. No mastoid effusion. Soft tissues: Unremarkable. IMPRESSION: 1. 3 mm hypodense focus within the posterior limb of the left internal capsule concerning for a lacunar infarct of indeterminate age. 2. No evidence for acute transcortical infarct, acute intracranial hemorrhage, or mass effect. CT Cervical Spine Without Contrast EXAM DATE/TIME: 03/06/2019 6:42 PM CLINICAL HISTORY: 53 years old, male; Signs and symptoms; Weakness, extremity; Patient HX: Right sided weakness TECHNIQUE: Imaging protocol: Axial computed tomography images of the cervical spine without contrast. Coronal and sagittal reformatted images were created and reviewed. COMPARISON: No relevant prior studies available. FINDINGS: Vertebrae: No spondylolisthesis. No acute fracture or traumatic subluxation. The atlantooccipital and atlantoaxial articulations are intact. Facet joint alignments are maintained. Multilevel degenerative changes of the cervical spine. Discs/Spinal canal/Neural foramina: Age-related degenerative disc disease. Other bones/joints: Occipital condyles are intact. Prevertebral Space: No prevertebral soft tissue swelling. Soft tissues: Unremarkable. Lungs: Lung apices are normal. IMPRESSION: Multilevel degenerative changes of the cervical spine. This is most impressive on the right side where there is severe right C4-C5 neural foraminal narrowing. Lab Data Lab results reviewed: Yes I reviewed the patient's lab results. Laboratory Tests Range/Units 03/06/19 03/06/19 03/06/19 18:40 18:40 18:40 WBC (4.4-10.8) k/cumm 7.30 RBC (4.50-6.00) m/cumm 3.28 L Hgb (13.5-17.5) g/dL 10.5 L Hct (40.0-50.0) % 32.4 L MCV (80-95) fL 98.8 H MCH (27.0-33.0) pg 32.0 MCHC (32.0-36.0) g/dL 32.4 RDW (11.8-14.1) % 18.2 H Plt Count (130-400) x1000/uL 243 MPV (8.0-11.0) fL 10.9 Immature Gran % 0.3 Neutrophils % 56.9 Lymphocytes % 28.1 Monocytes % 11.0 Eosinophils % 3.2 Basophils % 0.5 Absolute Neutrophils (1.2-6.7) k/cumm 4.16 Absolute Lymphocytes (1.2-3.4) k/cumm 2.05 Absolute Monocytes (0.11-0.7) k/cumm 0.80 H Absolute Eosinophils (0.0-0.7) k/cumm 0.23 Absolute Basophils (0.0-0.2) k/cumm 0.04 Differential Comment Rbc morph reviewed RBC Morphology See below Anisocytosis 2+ Macrocytosis 1+ PT (9.3-11.0) sec 9.3 INR (0.9-1.1) 0.9 Sodium (136-145) mmol/L 137 Potassium (3.5-5.1) mmol/L 5.4 H Chloride (98-107) mmol/L 99 Carbon Dioxide (21.0-32.0) mmol/L 30.7 Anion Gap (3-11) mmol/L 7.3 BUN (7-18) mg/dL 46 H Creatinine (0.70-1.30) mg/dL 5.20 H* Estimated GFR/1.73 m2 (mL/min/1.73m2) 11.71 Glucose (70-100) mg/dL 170 H Calcium (8.5-10.1) mg/dL 8.6 Total Bilirubin (0.2-1.0) mg/dL 0.3 AST (15-37) U/L 22 ALT (12-78) U/L 37 Alkaline Phosphatase (46-116) U/L 141 H Troponin I (0.00-0.06) ng/mL < 0.02 Total Protein (6.4-8.2) g/dL 7.0 Albumin (3.4-5.0) g/dL 3.1 L Range/Units 03/06/19 22:30 WBC (4.4-10.8) k/cumm RBC (4.50-6.00) m/cumm Hgb (13.5-17.5) g/dL Hct (40.0-50.0) % MCV (80-95) fL MCH (27.0-33.0) pg MCHC (32.0-36.0) g/dL RDW (11.8-14.1) % Plt Count (130-400) x1000/uL MPV (8.0-11.0) fL Immature Gran % Neutrophils % Lymphocytes % Monocytes % Eosinophils % Basophils % Absolute Neutrophils (1.2-6.7) k/cumm Absolute Lymphocytes (1.2-3.4) k/cumm Absolute Monocytes (0.11-0.7) k/cumm Absolute Eosinophils (0.0-0.7) k/cumm Absolute Basophils (0.0-0.2) k/cumm Differential Comment RBC Morphology Anisocytosis Macrocytosis PT (9.3-11.0) sec INR (0.9-1.1) Sodium (136-145) mmol/L Potassium (3.5-5.1) mmol/L Chloride (98-107) mmol/L Carbon Dioxide (21.0-32.0) mmol/L Anion Gap (3-11) mmol/L BUN (7-18) mg/dL Creatinine (0.70-1.30) mg/dL Estimated GFR/1.73 m2 (mL/min/1.73m2) Glucose (70-100) mg/dL Calcium (8.5-10.1) mg/dL Total Bilirubin (0.2-1.0) mg/dL AST (15-37) U/L ALT (12-78) U/L Alkaline Phosphatase (46-116) U/L Troponin I (0.00-0.06) ng/mL Cancelled Total Protein (6.4-8.2) g/dL Albumin (3.4-5.0) g/dL ECG Data Attestation: I personally reviewed and interpreted this ECG (s) as follows: Interpretation: EKG shows sinus rhythm at 68, normal axis, no acute ischemic changes, nondiagnostic EKG EKG #2 shows sinus rhythm at 70, normal axis, QRS 103. Unchanged from prior. HPI General Mode of arrival: ambulatory . Date/Time Provider Initiated Documentation: 03/06/19 18:18 . Limitations to Documentation: no limitations . Information obtained by: patient, family, RN notes reviewed and old records reviewed . HPI Narrative: Gerson Bruner is a 53 y/o man with history of hypertension, diabetes, chronic kidney disease on dialysis presenting to the emergency department with right-sided weakness. Patient reports that over the past 3 days he has noticed an intermittent tingling sensation in his right arm, right lateral ribs, and right leg. He reports that this sensation comes and goes, and he does not always have tingling in his arm and leg concurrently. Patient also reports that he has noticed weakness in his right arm and right leg, to the point where he feels that his right leg gives out on him and he has fallen several times because of this. Patient reports that the symptoms are new and have not occurred in the past. Patient reports that his right arm and leg currently do not feel weak, but they do feel tingly. He denies numbness. He denies any numbness, tingling, or weakness on the left side. Patient reports that he has not hit his head when he has fallen. He denies having any pain. He denies fevers, shortness of breath, cough, vomiting, diarrhea. He continues to make urine and has had no urinary changes or changes in bowel function. Patient reports that he had dialysis as scheduled 2 days ago, and is due for dialysis tomorrow. Has been eating and drinking as usual. No recent illness. Patient is accompanied by his who also provides the history, and she reports that she noticed that patient's speech seemed slurred earlier today over the phone, but now is at baseline. She denies any altered mental status, behavior changes. Patient reports that he uses marijuana, denies alcohol, denies tobacco. Related Data Home Medications Medication Instructions Recorded Confirmed insulin syringe-needle U-100 [BD 03/21/13 02/02/18 Insulin Syringe] blood-glucose meter [FreeStyle #1 kit 03/24/13 Lite Meter] pen needle, diabetic #180 unit 03/24/13 lancets #300 ea 08/08/13 furosemide 40 mg PO DAILY 07/30/17 08/09/18 amlodipine 10 mg PO DAILY 08/05/18 08/09/18 aspirin 81 mg PO DAILY 08/05/18 08/09/18 ferrous sulfate 650 mg PO DAILY 08/05/18 08/09/18 insulin detemir U-100 [Levemir 55 units SUBCUT HS 08/05/18 08/09/18 FlexTouch U-100 Insuln] methocarbamol 750 mg PO QID 08/05/18 08/09/18 esomeprazole magnesium [Nexium] 40 mg PO DAILY #30 cap 08/07/18 08/09/18 pregabalin [Lyrica] 150 mg PO BID #60 cap 08/07/18 08/09/18 ranitidine HCl 150 mg PO BID #60 tab 08/07/18 08/09/18 Previous Rx's Medication Instructions Recorded esomeprazole magnesium [Nexium] 40 mg PO DAILY #30 cap 08/07/18 pregabalin [Lyrica] 150 mg PO BID #60 cap 08/07/18 ranitidine HCl 150 mg PO BID #60 tab 08/07/18 Allergies Allergy/AdvReac Type Severity Reaction Status Date / Time clindamycin Allergy Mild HIVES Unverified 08/05/18 12:18 Penicillins Allergy Mild Unverified 08/05/18 12:18 sertraline AdvReac Mild Nausea Unverified 08/05/18 12:18 gabapentin AdvReac ANKLE EDEMA Unverified 08/05/18 12:18 General Stated Complaint: CVA/TIA MONIKA: 2 Review of Systems Review of Systems Constitutional: denies fevers Eyes: denies eye pain ENT: denies facial pain, dental pain, sore throat Cardiovascular: denies chest pain, edema Respiratory: denies SOB, cough GI: denies abdominal pain, vomiting, diarrhea : denies flank pain MSK: denies back pain, neck pain, arthralgias, myalgias Skin: denies rash Neuro: denies headaches, numbness, reports tingling, weakness as per HPI [facility] Medical History CKD (chronic kidney disease) (Chronic) Peripheral neuropathy (Chronic) Hypertension (Chronic) Diabetes mellitus (Chronic) Chronic Kidney disease stage 3 Social History Smoking/Tobacco Use Status: Former Tobacco Use Drug use: Daily Substance use type: marijuana Do you feel safe at home: Yes Do you feel safe in your relationship?: Yes Exam Narrative Exam Narrative: Constitutional: well and [id number], pleasant, conversing normally HENT: head atraumatic/normocephalic/normal inspection, mucous membranes moist Eyes: conjunctiva normal, sclera normal, pupils 3mm b/l Neck: no stridor, normal ROM, trachea midline, no tenderness to palpation Chest: normal inspection Resp: normal work of breathing, LCTAB Cardio: normal rate, normal rhythm, no murmur appreciated GI: abdomen soft, non-tender, non-distended Back: normal inspection, no rash Skin: warm, dry, normal color, no rash Neuro: alert, not altered, normal speech, cranial nerves II through XII intact, motor 5 out of 5 upper and lower extremities, ataxic gait, positive pronator drift on right, no sensory deficit, normal tone Ext: no edema Psych: normal mood, normal affect, normal behavior Course Vital Signs Temperature 37 C 03/06/19 18:03 Pulse 70 03/06/19 18:03 Respiratory Rate 16 03/06/19 18:03 Blood Pressure 166/78 H 03/06/19 18:03 Pulse Oximetry 96 03/06/19 18:03 Temperature 37 C 03/06/19 18:03 Temperature Source Skin 03/06/19 18:03 Pulse 70 03/06/19 18:03 Respiratory Rate 16 03/06/19 18:03 Respiratory Effort Non-Labored 03/06/19 18:07 Blood Pressure 166/78 H 03/06/19 18:03 Pulse Oximetry 96 03/06/19 18:03 Oxygen Delivery Method Room Air 03/06/19 18:03 Oxygen Flow Rate 0 03/06/19 18:03
== END 2019-03-06 22:45 ==
PROVIDERS: Emergency Provider Student in an Organized Health Care Education/Training Program; PCP Nurse Practitioner Family
DX: G83.31 Monoplegia, unspecified affecting right dominant side (principal); R26.0 Ataxic gait; E87.5 Hyperkalemia; R20.2 Paresthesia of skin; E11.22 Type 2 diabetes mellitus with diabetic chronic kidney disease; I12.0 Hypertensive chronic kidney disease with stage 5 chronic kidney disease or end stage renal disease; N18.6 End stage renal disease; Z99.2 Dependence on renal dialysis; G62.9 Polyneuropathy, unspecified
CPT/HCPCS: 36415; 80053; 93005; 99285; 70450; 71046; 72125; 84484; 85025; 85610; 93010; L0172

== ENCOUNTER 2019-04-06 12:25 | Outpatient (REF) | payer BC, SELFPAY ==
[2019-04-10 11:53] LABS: PSA, Screening 0.4 ng/ml (0-3.5)
== END 2019-04-06 12:45 ==
LOC: NCHCN 12:25
PROVIDERS: PCP Nurse Practitioner Family; Visit Provider Nurse Practitioner Family
DX: F52.21 Male erectile disorder (principal); Z12.5 Encounter for screening for malignant neoplasm of prostate
CPT/HCPCS: 84153

== ENCOUNTER 2019-04-18 23:06 | Emergency (ER) | payer BC, SELFPAY ==
[2019-04-18] VITALS (8 sets, daily range): BP systolic 133–175; BP diastolic 63–85; PULSE 58–70; RESP 11–20; TEMP 36.7; O2SAT 93–99
[2019-04-18] MEDS: Normal Saline Flush 10 ML SYR IVP (23:20)
--- NOTE | 2019-04-18 23:21 | DI.CT_ITS ---
SYMPTOM/DIAGNOSIS: DIZZINESS CRANIAL CT (WITHOUT CONTRAST): A noncontrast cranial CT was performed. The ventricular system is normal in appearance. There is no evidence of an intracranial mass lesion. There is no evidence of a subdural or epidural hematoma. No focal areas of decreased attenuation are seen. CONCLUSION: Normal noncontrast Cranial CT. Incidental note is made of minimal fluid in a few left mastoid air cells which may represent a mild serous mastoiditis, no gross interval change from 02/2019 study.
--- NOTE | 2019-04-18 23:22 | W.ED.GENAD ---
Discharge Plan Disposition Patient Disposition: HOME Condition: Stable Discharge Details Chief Complaint: CVA/TIA Clinical Impression: Dizziness Primary Care Provider: Lauri Milton ED Provider: Kiel Amos Home Meds and New Rx's Prescriptions: No Action insulin syringe-needle U-100 [BD Insulin Syringe] 1 EACH syringe 1 ea Sub-Q TID RF: 0 pen needle, diabetic 1 EACH needle 1 ea Sub-Q AC Qty: 180 RF: 12 blood-glucose meter [FreeStyle Lite Meter] 1 EACH kit 1 ea Miscellaneous TID Qty: 1 RF: 0 lancets 1 EACH misc 1 ea Intradermal TID Qty: 300 RF: 4 TEST STRIPS 1 EACH strip 1 ea Miscellaneous TID Qty: 270 RF: 4 furosemide 20 MG tablet 40 mg PO BID RF: 0 aspirin 81 mg Tablet,Chewable 81 mg PO DAILY RF: 0 Levemir FlexTouch U-100 Insuln 100 unit/mL (3 mL) Insulin Pen 60 units subcut HS RF: 0 amlodipine 10 mg Tablet 10 mg PO DAILY RF: 0 Lyrica 50 mg Capsule 150 mg PO BID Qty: 60 RF: 0 ranitidine HCl 150 mg Tablet 150 mg PO BID Qty: 60 RF: 0 Discharge Instructions Instructions: Dizziness (ED) Additional Instructions: please take your aspirin when you get home and take this daily if you have severe worsening symptoms, fevers, or weakness on one side of the body return to the emergency department follow up with your neurologist as scheduled tomorrow Medical Decision Making 53 yo male with hx of IDDM, htn, ckd on dialysis mwf, who had a TIA in February and evaluated at [facility] with no acute infarction on mri who comes in with feeling dizzy since around 10pm tonight and not able to focus. Denies chest pain, sob, abd pain, n/v, chest pain, or fevers. He does note he hasn't been taking his aspirin that he is suposed to take daily for about a week. He has no motor deficits, does have some mild decreased sensation over right arm that was present last month at [facility]. NIH is 1 based on this sensation deficits. Given his dizziness and recent tia will obtain ct head to evalute further, given no new neuro symptoms and deficits on exam doubt cva at this time. No neck pain to suggest dissection pt remains stable, ct shows no acute findings and labs shows no acute findings. He is feeling better though still has mild dizziness. Given his hx of recent TIA and being off asa and the new dizziness I feel he should be observed and have MRI tomorrow. We have no tele beds here and he has dialysis tomorrow as well and [facility] has no availability as well. I advised the patient of this and he is declining to be transferred to another facility at this time. He has capacity to make his own decisions and understands risks of missing a small cva and is willing to accept these risks. He states he is going to see his neurologist as scheduled tomorrow and will return to the emergency department for new or worsening symptoms . He declined aspirin here as he states he will take it when he gets home Differential Diagnosis tia, vertigo, cva Medical Records Medical records reviewed: Yes I reviewed the patient's medical records. Imaging Data Radiologic Study: Attestation: I personally reviewed and interpreted this imaging study as follows: Imaging: CT Scan Radiologist's impression: no acute findings Lab Data Lab results reviewed: Yes I reviewed the patient's lab results. ECG Data Attestation: I personally reviewed and interpreted this ECG (s) as follows: Prior ECG tracings: not available for review Interpretation: sinus rhythm, rate of 60, pr 152, no acute st t wave ischemic findings HPI General Mode of arrival: ambulatory. Date/Time Provider Initiated Documentation: 04/18/19 23:07. Limitations to Documentation: no limitations. Information obtained by: patient and family. History of Present Illness 53 year old M presents to the emergency department with the chief complaint of dizziness, described as moderate, Patient started experiencing this hour(s) (2) and it has been constant. No relieving factors improve symptom(s), No exacerbating factors reported . Patient notes no other symptoms.. Patient did receive the following treatments prior to arrival, none Related Data Home Medications Medication Instructions Recorded Confirmed insulin syringe-needle U-100 [BD 03/21/13 02/02/18 Insulin Syringe] blood-glucose meter [FreeStyle #1 kit 03/24/13 Lite Meter] pen needle, diabetic #180 unit 03/24/13 lancets #300 ea 08/08/13 furosemide 40 mg PO BID 07/30/17 04/18/19 Levemir FlexTouch U-100 Insuln 60 units SUBCUT HS 08/05/18 04/18/19 amlodipine 10 mg PO DAILY 08/05/18 04/18/19 aspirin 81 mg PO DAILY 08/05/18 04/18/19 pregabalin [Lyrica] 150 mg PO BID #60 cap 08/07/18 04/18/19 ranitidine HCl 150 mg PO BID #60 tab 08/07/18 04/18/19 Previous Rx's Medication Instructions Recorded pregabalin [Lyrica] 150 mg PO BID #60 cap 08/07/18 ranitidine HCl 150 mg PO BID #60 tab 08/07/18 Allergies Allergy/AdvReac Type Severity Reaction Status Date / Time clindamycin Allergy Mild HIVES Unverified 04/18/19 23:50 Penicillins Allergy Mild Unverified 04/18/19 23:50 sertraline AdvReac Mild Nausea Unverified 04/18/19 23:50 gabapentin AdvReac ANKLE EDEMA Unverified 04/18/19 23:50 General Stated Complaint: CVA/TIA MONIKA: 2 Review of Systems Review of Systems All systems reviewed & are unremarkable except as noted in HPI and below Constitutional Denies chills, Denies fever(s) and Denies weakness Cardiovascular Denies chest pain and Denies dyspnea Respiratory Denies cough and Denies dyspnea Gastrointestinal Denies abdominal pain, Denies nausea and Denies vomiting Integumentary/Breasts Denies rash Neurologic Denies weakness [facility] Social History Smoking/Tobacco Use Status: Former Tobacco Use Alcohol Intake: former Drug use: Daily Substance use type: marijuana Do you feel safe at home: Yes Do you feel safe in your relationship?: Yes Exam Const General: no acute distress Orientation: alert HENMT Head: normal to inspection Ears: external ears normal General nose exam: external nose normal Mouth: moist mucous membranes Eyes General: appearance normal, both eyes and all related structures Neck Neck: normal visual inspection Resp Effort & Inspection: normal respiratory effort and able to speak in complete sentences Cardio Rate: regular rate Skin General skin exam: no rashes or lesions noted Neuro General: alert and oriented x3 Extrem General: normal to inspection Psych Mental Status: mental status grossly normal Course Vital Signs Temperature 36.7 C 04/18/19 23:09 Pulse 70 04/18/19 23:09 Respiratory Rate 20 04/18/19 23:09 Blood Pressure 175/85 H 04/18/19 23:09 Pulse Oximetry 99 04/18/19 23:09 Temperature 36.7 C 04/18/19 23:09 Temperature Source Skin 04/18/19 23:09 Pulse 70 04/18/19 23:09 Respiratory Rate 20 04/18/19 23:09 Blood Pressure 175/85 H 04/18/19 23:09 Blood Pressure Position Sitting 04/18/19 23:09 Pulse Oximetry 99 04/18/19 23:09 Oxygen Delivery Method Room Air 04/18/19 23:09 Oxygen Flow Rate 0 04/18/19 23:09
--- NOTE | 2019-04-18 23:29 | ED.GENADUL_ITS ---
Discharge Plan Disposition Patient Disposition: HOME Condition: Stable Discharge Details Chief Complaint: CVA/TIA Clinical Impression: Dizziness Primary Care Provider: Lauri Milton ED Provider: Kiel Amos Home Meds and New Rx's Prescriptions: No Action insulin syringe-needle U-100 [BD Insulin Syringe] 1 EACH syringe 1 ea Sub-Q TID RF: 0 pen needle, diabetic 1 EACH needle 1 ea Sub-Q AC Qty: 180 RF: 12 blood-glucose meter [FreeStyle Lite Meter] 1 EACH kit 1 ea Miscellaneous TID Qty: 1 RF: 0 lancets 1 EACH misc 1 ea Intradermal TID Qty: 300 RF: 4 TEST STRIPS 1 EACH strip 1 ea Miscellaneous TID Qty: 270 RF: 4 furosemide 20 MG tablet 40 mg PO BID RF: 0 aspirin 81 mg Tablet,Chewable 81 mg PO DAILY RF: 0 Levemir FlexTouch U-100 Insuln 100 unit/mL (3 mL) Insulin Pen 60 units subcut HS RF: 0 amlodipine 10 mg Tablet 10 mg PO DAILY RF: 0 Lyrica 50 mg Capsule 150 mg PO BID Qty: 60 RF: 0 ranitidine HCl 150 mg Tablet 150 mg PO BID Qty: 60 RF: 0 Discharge Instructions Instructions: Dizziness (ED) Additional Instructions: please take your aspirin when you get home and take this daily if you have severe worsening symptoms, fevers, or weakness on one side of the body return to the emergency department follow up with your neurologist as scheduled tomorrow Medical Decision Making 53 yo male with hx of IDDM, htn, ckd on dialysis mwf, who had a TIA in February and evaluated at [facility] [place] with no acute infarction on mri who comes in with feeling dizzy since around 10pm tonight and not able to focus. Denies chest pain, sob, abd pain, n/v, chest pain, or fevers. He does note he hasn't been taking his aspirin that he is suposed to take daily for about a week. He has no motor deficits, does have some mild decreased sensation over right arm that was present last month at [facility] [place]. NIH is 1 based on this sensation deficits. Given his dizziness and recent tia will obtain ct head to evalute further, given no new neuro symptoms and deficits on exam doubt cva at this time. No neck pain to suggest dissection pt remains stable, ct shows no acute findings and labs shows no acute findings. He is feeling better though still has mild dizziness. Given his hx of recent TIA and being off asa and the new dizziness I feel he should be observed and have MRI tomorrow. We have no tele beds here and he has dialysis tomorrow as well and [facility] [place] has no availability as well. I advised the patient of this and he is declining to be transferred to another facility at this time. He has capacity to make his own decisions and understands risks of missing a small cva and is willing to accept these risks. He states he is going to see his neurologist as scheduled tomorrow and will return to the emergency department for new or worsening symptoms . He declined aspirin here as he states he will take it when he gets home Differential Diagnosis tia, vertigo, cva Medical Records Medical records reviewed: Yes I reviewed the patient's medical records. Imaging Data Radiologic Study: Attestation: I personally reviewed and interpreted this imaging study as follows: Imaging: CT Scan Radiologist's impression: no acute findings Lab Data Lab results reviewed: Yes I reviewed the patient's lab results. ECG Data Attestation: I personally reviewed and interpreted this ECG (s) as follows: Prior ECG tracings: not available for review Interpretation: sinus rhythm, rate of 60, pr 152, no acute st t wave ischemic findings HPI General Mode of arrival: ambulatory . Date/Time Provider Initiated Documentation: 04/18/19 23:07 . Limitations to Documentation: no limitations . Information obtained by: patient and family . History of Present Illness 53 year old M presents to the emergency department with the chief complaint of dizziness, described as moderate, Patient started experiencing this hour(s) (2) and it has been constant. No relieving factors improve symptom(s), No exacerbating factors reported . Patient notes no other symptoms.. Patient did receive the following treatments prior to arrival, none Related Data Home Medications Medication Instructions Recorded Confirmed insulin syringe-needle U-100 [BD 03/21/13 02/02/18 Insulin Syringe] blood-glucose meter [FreeStyle #1 kit 03/24/13 Lite Meter] pen needle, diabetic #180 unit 03/24/13 lancets #300 ea 08/08/13 furosemide 40 mg PO BID 07/30/17 04/18/19 Levemir FlexTouch U-100 Insuln 60 units SUBCUT HS 08/05/18 04/18/19 amlodipine 10 mg PO DAILY 08/05/18 04/18/19 aspirin 81 mg PO DAILY 08/05/18 04/18/19 pregabalin [Lyrica] 150 mg PO BID #60 cap 08/07/18 04/18/19 ranitidine HCl 150 mg PO BID #60 tab 08/07/18 04/18/19 Previous Rx's Medication Instructions Recorded pregabalin [Lyrica] 150 mg PO BID #60 cap 08/07/18 ranitidine HCl 150 mg PO BID #60 tab 08/07/18 Allergies Allergy/AdvReac Type Severity Reaction Status Date / Time clindamycin Allergy Mild HIVES Unverified 04/18/19 23:50 Penicillins Allergy Mild Unverified 04/18/19 23:50 sertraline AdvReac Mild Nausea Unverified 04/18/19 23:50 gabapentin AdvReac ANKLE EDEMA Unverified 04/18/19 23:50 General Stated Complaint: CVA/TIA MONIKA: 2 Review of Systems Review of Systems All systems reviewed & are unremarkable except as noted in HPI and below Constitutional Denies chills, Denies fever(s) and Denies weakness Cardiovascular Denies chest pain and Denies dyspnea Respiratory Denies cough and Denies dyspnea Gastrointestinal Denies abdominal pain, Denies nausea and Denies vomiting Integumentary/Breasts Denies rash Neurologic Denies weakness [facility] Social History Smoking/Tobacco Use Status: Former Tobacco Use Alcohol Intake: former Drug use: Daily Substance use type: marijuana Do you feel safe at home: Yes Do you feel safe in your relationship?: Yes Exam Const General: no acute distress Orientation: alert HENMT Head: normal to inspection Ears: external ears normal General nose exam: external nose normal Mouth: moist mucous membranes Eyes General: appearance normal, both eyes and all related structures Neck Neck: normal visual inspection Resp Effort & Inspection: normal respiratory effort and able to speak in complete sentences Cardio Rate: regular rate Skin General skin exam: no rashes or lesions noted Neuro General: alert and oriented x3 Extrem General: normal to inspection Psych Mental Status: mental status grossly normal Course Vital Signs Temperature 36.7 C 04/18/19 23:09 Pulse 70 04/18/19 23:09 Respiratory Rate 20 04/18/19 23:09 Blood Pressure 175/85 H 04/18/19 23:09 Pulse Oximetry 99 04/18/19 23:09 Temperature 36.7 C 04/18/19 23:09 Temperature Source Skin 04/18/19 23:09 Pulse 70 04/18/19 23:09 Respiratory Rate 20 04/18/19 23:09 Blood Pressure 175/85 H 04/18/19 23:09 Blood Pressure Position Sitting 04/18/19 23:09 Pulse Oximetry 99 04/18/19 23:09 Oxygen Delivery Method Room Air 04/18/19 23:09 Oxygen Flow Rate 0 04/18/19 23:09
[2019-04-18 23:48] LABS: Abs Immature Grans 0.01 k/cumm (0.0-0.09); Absolute Basophil Count 0.03 k/cumm (0.0-0.2); Absolute Monocyte Count 0.73 k/cumm (0.11-0.7); Absolute Neutrophil Count 4.34 k/cumm (1.2-6.7); Basophils % 0.4; Eosinophils % 3.6; HCT 40.2 % (40.0-50.0); Immature Grans % 0.1; Lymphocytes % 34.9; Mean Corp. HGB Concentration 32.3 g/dL (32.0-36.0); Mean Corpuscular Hemoglobin 29.6 pg (27.0-33.0); Mean Corpuscular Volume 91.6 fL (80-95); Mean Platelet Volume 11.2 fL (8.0-11.0); Monocytes % 8.8; Neutrophils % 52.2; Platelet Count 245 x1000/uL (130-400); RBC 4.39 m/cumm (4.50-6.00); White Blood Cell Count 8.31 k/cumm (4.4-10.8)
--- NOTE | 2019-04-18 23:50 | DI.VRAD_ITS ---
EXAM: CT Head Without Contrast EXAM DATE/TIME: 04/18/2019 11:22 PM CLINICAL HISTORY: 53 years old, male; Dizziness and other: Dizziness; Patient HX: Dizziness ? TECHNIQUE: Imaging protocol: Axial computed tomography images of the head without contrast. Coronal and sagittal reformatted images were created and reviewed. Radiation optimization: All CT scans at this facility use at least one of these dose optimization techniques: automated exposure control; mA and/or kV adjustment per patient size (includes targeted exams where dose is matched to clinical indication); or iterative reconstruction. Other technique: STROKE PROTOCOL was implemented. COMPARISON: CT HEAD CERVICAL SPINE WO 03/06/2019 6:45 PM FINDINGS: Brain: There is no significant cerebral atrophy present. There is no significant white matter disease present. There is no evidence of intracranial hemorrhage. There is no evidence of acute intracranial injury or other pathologic process. There is no evidence of an acute ischemic event. No evidence of an acute intracranial abnormality. Ventricles: The ventricular system is normal in caliber and are seen in the midline. Bones/joints: The orbits are normal without evidence of fracture. The bony cranium shows no evidence of injury or other acute pathologic processes. Sinuses: There is no evidence of fluid levels, mucoperiosteal thickening, or opacification to suggest acute or chronic sinusitis. Mastoid air cells: Sclerosis and soft tissue density seen within the mastoid air cells consistent with chronic or remote mastoiditis. No evidence of air-fluid levels to suggest acute mastoiditis. No significant change compared to 03/06/19. Orbits: There is no evidence of retro-bulbar hemorrhage. There is no evidence of globe or lens injury. Soft tissues: The extracranial soft tissues are normal. IMPRESSION: 1. No evidence of an acute intracranial abnormality. 2. Evidence of chronic left mastoiditis. ASSESSMENT: ASPECTS ([place] Stroke Program Early CT Score) is 10. Dictated and Authenticated by: Zurdo Walsh MD. Ordering:FRANCISCO JAVIER Dyson MD
[2019-04-18 23:56] LABS: ETHANOL BLOOD 3.2 mg/dL (<3)
[2019-04-18 23:58] LABS: ALT 35 U/L (12-78); AST 17 U/L (15-37); Albumin 3.3 g/dL (3.4-5.0); Alkaline Phosphatase 125 U/L (46-116); Anion Gap 9.6 mmol/L (3-11); BUN 30 mg/dL (7-18); Bilirubin, Total 0.3 mg/dL (0.2-1.0); CO2 30.4 mmol/L (21.0-32.0); Calcium 9.4 mg/dL (8.5-10.1); Chloride 100 mmol/L (98-107); Glucose 343 mg/dL (70-100); Magnesium 2.5 mg/dL (1.8-2.4); Potassium 3.8 mmol/L (3.5-5.1); Sodium 140 mmol/L (136-145); Total Protein 7.1 g/dL (6.4-8.2)
[2019-04-19] VITALS: PULSE 61; RESP 18
[2019-04-19 00:01] VITALS: BP 139/69; PULSE 60; PULSE 62; RESP 19; O2SAT 91
[2019-04-19 00:06] LABS: CREATININE 4.75 mg/dL (0.70-1.30)
[2019-04-19 00:10] VITALS: PULSE 61; RESP 12; O2SAT 96
[2019-04-19 00:12] LABS: INR 0.9 (0.9-1.1); PTT Activated 23.9 sec (21.0-31.4); Prothrombin Time 9.4 sec (9.3-11.0)
[2019-04-19 00:30] VITALS: TEMP 36.7
== END 2019-04-19 00:31 | disposition home or self-care (01) ==
PROVIDERS: Emergency Provider Emergency Medicine; PCP Nurse Practitioner Family
DX: R42 Dizziness and giddiness (principal); E11.40 Type 2 diabetes mellitus with diabetic neuropathy, unspecified; E11.22 Type 2 diabetes mellitus with diabetic chronic kidney disease; I12.0 Hypertensive chronic kidney disease with stage 5 chronic kidney disease or end stage renal disease; N18.6 End stage renal disease; Z99.2 Dependence on renal dialysis; Z79.4 Long term (current) use of insulin; Z86.73 Personal history of transient ischemic attack (TIA), and cerebral infarction without residual deficits
CPT/HCPCS: 36415; 36416; 80053; 82962; 93005; 99285; 70450; 80320; 83735; 85025; 85610; 85730; 93010

== ENCOUNTER 2019-12-26 03:59 | Outpatient (CLI) | payer BC, SELFPAY | END 2019-12-26 04:19 | PROVIDERS: PCP Nurse Practitioner Family; Visit Provider Nurse Practitioner Family | DX: R69 Illness, unspecified (principal) ==

== ENCOUNTER 2020-04-28 10:36 | Emergency (ER) | payer BC, SELFPAY ==
[2020-04-28 10:41] VITALS: BP 174/64; PULSE 65; RESP 18; TEMP 36.5; O2SAT 100
--- NOTE | 2020-04-28 10:54 | W.ED.GENAD ---
Discharge Plan Disposition Patient Disposition: HOME Condition: Stable Discharge Details Chief Complaint: Orthopedic Clinical Impression: Injury of left shoulder Primary Care Provider: Lauri Milton ED Provider: Cristian Warner Home Meds and New Rx's Prescriptions: New tramadol 50 mg tablet 50 mg PO Q8H PRN (Reason: pain) Qty: 7 RF: 0 Continued polyethylene glycol 3350 17 gram/dose powder 238 g PO ONCE Qty: 238 RF: 0 bisacodyl [Dulcolax (bisacodyl)] 5 mg tablet,delayed release (DR/EC) 5 mg PO ONCE Qty: 4 RF: 0 calcium carbonate 500 mg calcium (1,250 mg) tablet,chewable 500 mg PO TID RF: 0 albuterol sulfate [ProAir HFA] 90 mcg/actuation HFA aerosol inhaler 1 puff IH Q6H PRNRF: 0 multivitamin tablet 1 tab PO DAILY RF: 0 insulin lispro [Humalog KwikPen Insulin] 100 unit/mL insulin pen 5 unit SC PRN RF: 0 sevelamer carbonate 800 mg tablet 800 mg PO BID RF: 0 hydrochlorothiazide 25 mg tablet 25 mg PO DAILY RF: 0 labetalol 200 mg tablet 200 mg PO BID RF: 0 nortriptyline 25 mg capsule 25 mg PO QHS RF: 0 (DME) BD Insulin Syringe 1 EACH syringe 1 ea Sub-Q TID RF: 0 (DME) pen needle, diabetic 1 EACH needle 1 ea Sub-Q AC Qty: 180 RF: 12 (DME) blood-glucose meter [FreeStyle Lite Meter] 1 EACH kit 1 ea Miscellaneous TID Qty: 1 RF: 0 (DME) lancets 1 EACH misc 1 ea Intradermal TID Qty: 300 RF: 4 TEST STRIPS 1 EACH strip 1 ea Miscellaneous TID Qty: 270 RF: 4 furosemide 20 MG tablet 40 mg PO BID RF: 0 aspirin 81 mg Tablet,Chewable 81 mg PO DAILY RF: 0 Levemir FlexTouch U-100 Insuln 100 unit/mL (3 mL) Insulin Pen 60 units subcut HS RF: 0 amlodipine 10 mg Tablet 10 mg PO DAILY RF: 0 Lyrica 50 mg Capsule 150 mg PO BID Qty: 60 RF: 0 ranitidine HCl 150 mg Tablet 150 mg PO BID Qty: 60 RF: 0 Discharge Instructions Instructions: Shoulder Sprain (ED), Shoulder Pain (ED) Additional Instructions: Sling as needed for comfort. Ice area to reduce discomfort. May use tramadol as needed sparingly for severe pain. Do not take at the same time as your nortriptyline. Follow-up in orthopedics for recheck. Your name will be placed on orthopedic follow-up list. Please call the office at [phone] for an appointment time. Discharge Data Discharge Date/Time-TO BE ENTERED AT DEPARTURE: 04/28/20 12:06 Medical Decision Making 54-year-old male with a number of chronic medical problems states he was wearing sandals, tripped on a stick and fell forward landing on his left shoulder yesterday. He did not have a loss of consciousness. He has no chest/back/neck/abdominal pain. He complains primarily of left humerus pain and mild right knee pain. Some mild tenderness in the affected areas on exam. Patient referred for x-ray of humerus and right knee. No acute osseous injuries appreciated. Right knee abrasion dressed. Sling offered for comfort of the left shoulder contusion versus rotator cuff injury. Discussed and will have him follow-up in orthopedics for recheck. He is offered a small number of analgesia for home use. HPI General Mode of arrival: ambulatory. Date/Time Provider Initiated Documentation: 04/28/20 10:38. Limitations to Documentation: no limitations. Information obtained by: patient. History of Present Illness 54 year old M presents to the emergency department with the chief complaint of Fall, left arm pain, right knee pain, described as moderate, Quality is described as aching and dull, and is localized to the left, right, upper extremity and lower extremity. Patient reports no radiation. Patient started experiencing this hour(s) and it has been constant. Rest improves symptom(s), Movement worsens symptoms . Patient notes denies confusion, chest pain, headaches, shortness of breath and syncope. Patient did receive the following treatments prior to arrival, other (Tylenol) Related Data Home Medications Medication Instructions Recorded Confirmed BD Insulin Syringe 03/21/13 05/11/19 blood-glucose meter [FreeStyle #1 kit 03/24/13 05/11/19 Lite Meter] pen needle, diabetic #180 unit 03/24/13 05/11/19 lancets #300 ea 08/08/13 05/11/19 furosemide 40 mg PO BID 07/30/17 05/11/19 Levemir FlexTouch U-100 Insuln 60 units SUBCUT HS 08/05/18 05/11/19 amlodipine 10 mg PO DAILY 08/05/18 05/11/19 aspirin 81 mg PO DAILY 08/05/18 05/11/19 Lyrica 150 mg PO BID #60 cap 08/07/18 05/11/19 ranitidine HCl 150 mg PO BID #60 tab 08/07/18 05/11/19 albuterol sulfate 90 mcg/actuation 1 puff IH Q6H PRN 04/20/19 05/11/19 aerosol inhaler calcium carbonate 500 mg calcium 500 mg PO TID tab 04/20/19 05/11/19 (1,250 mg) chewable tablet hydrochlorothiazide 25 mg tablet 25 mg PO DAILY 04/20/19 05/11/19 insulin lispro 100 unit/mL 5 unit SC PRN ml 04/20/19 05/11/19 subcutaneous pen labetalol 200 mg tablet 200 mg PO BID 04/20/19 05/11/19 multivitamin 1 tab PO DAILY 04/20/19 05/11/19 nortriptyline 25 mg capsule 25 mg PO QHS 04/20/19 05/11/19 sevelamer carbonate 800 mg tablet 800 mg PO BID tab 04/20/19 05/11/19 bisacodyl 5 mg tablet,delayed 5 mg PO ONCE #4 tab 05/11/19 05/11/19 release polyethylene glycol 3350 17 238 g PO ONCE #238 gm 05/11/19 05/11/19 gram/dose oral powder tramadol 50 mg PO Q8H PRN #7 tab 04/28/20 Previous Rx's Medication Instructions Recorded Lyrica 150 mg PO BID #60 cap 08/07/18 ranitidine HCl 150 mg PO BID #60 tab 08/07/18 bisacodyl 5 mg tablet,delayed 5 mg PO ONCE #4 tab 05/11/19 release polyethylene glycol 3350 17 238 g PO ONCE #238 gm 05/11/19 gram/dose oral powder tramadol 50 mg PO Q8H PRN #7 tab 04/28/20 Allergies Allergy/AdvReac Type Severity Reaction Status Date / Time clindamycin Allergy Mild HIVES Verified 04/28/20 10:49 Penicillins Allergy Mild Verified 04/28/20 10:49 sertraline AdvReac Mild Nausea Verified 04/28/20 10:49 gabapentin AdvReac ANKLE EDEMA Verified 04/28/20 10:49 General Stated Complaint: Orthopedic MONIKA: 4 Review of Systems Narrative: 6 systems reviewed and otherwise negative [facility] Medical History Anxiety and depression (Chronic) AV fistula (Inactive) left arm Bilateral leg edema (Chronic) Blood in stool (Acute) Chronic back pain (Chronic) Chronic Kidney disease stage 3 CKD (chronic kidney disease) (Chronic) Degenerative joint disease (Chronic) Diabetes mellitus (Chronic) Dialysis patient (Inactive) Exertional shortness of breath (Chronic) GERD (gastroesophageal reflux disease) (Chronic) Hyperlipidemia (Chronic) Hypertension (Chronic) Lipoma (Acute) Peripheral neuropathy (Chronic) Retinopathy (Chronic) TIA (transient ischemic attack) (Acute) Tobacco dependence (Chronic) Tubular adenoma of colon (Acute 2016) Surgical History Cholecystectomy Colonoscopy - [facility] (10/08/16) Family History Father Colon cancer Social History Smoking/Tobacco Use Status: Current every day Tobacco Type: cigarettes Alcohol Intake: never Drug use: Daily Substance use type: marijuana Do you feel safe at home: Yes Do you feel safe in your relationship?: Yes Exam Narrative Exam Narrative: GEN: awake, alert, oriented 3. Pleasant, well groomed, interactive. HEAD: Normocephalic, atraumatic ENT: Mucous membranes moist, oropharynx unremarkable, External ear exam unremarkable EYES: PERRL, EOMI NECK: Full ROM, no KATHIE, no menigismus CHEST/RESP: Nontender, clear to auscultation bilateral, no wheeze/rhonchi/rales CARDIOVASCULAR: RRR, no murmur, rub robert. 2+ Rad pulse bilateral EXT: Full ROM, limited range of motion left shoulder. Patient unable to fully abduct the left arm. Tender posteriorly superior scapular spine. Tender left mid to proximal humerus. No significant elbow tenderness. Right anterior patellar tender. Abrasions to both legs. Neuro: Grossly normal neurologic exam, conversant, interactive. Psych: Speech fluent, thoughts congruent, affect normal Course Vital Signs Vital signs: Vital Signs Temperature 36.5 C 04/28/20 10:41 Pulse 65 04/28/20 10:41 Respiratory Rate 18 04/28/20 10:41 Blood Pressure 174/64 H 04/28/20 10:41 Pulse Oximetry 100 04/28/20 10:41 Temperature 36.5 C 04/28/20 10:41 Temperature Source Skin 04/28/20 10:41 Pulse 65 04/28/20 10:41 Respiratory Rate 18 04/28/20 10:41 Respiratory Effort Non-Labored 04/28/20 10:46 Blood Pressure 174/64 H 04/28/20 10:41 Pulse Oximetry 100 04/28/20 10:41 Oxygen Delivery Method Room Air 04/28/20 10:41 Oxygen Flow Rate 0 04/28/20 10:41 Pain Level 9 04/28/20 10:41
--- NOTE | 2020-04-28 11:17 | DI.RAD_ITS ---
EXAM: XR HUMERUS LT CLINICAL HISTORY: fall, pain. TECHNIQUE: 2D digital imaging was performed. COMPARISON: No exams were available for comparison FINDINGS: BONES: No acute fracture is present. No bony destructive lesion is seen. Visualized portion of elbow and shoulder joints are unremarkable. SOFT TISSUE: Normal. IMPRESSION: Unremarkable radiographs of the left humerus. DATA REPOSITORY: RADIATION DOSE DELIVERED:
--- NOTE | 2020-04-28 11:17 | DI.RAD_ITS ---
EXAM: XR KNEE RT 4V AP,LAT,KWABENA,PAT CLINICAL HISTORY: fall, r patella pain. TECHNIQUE: 2D digital imaging was performed. COMPARISON: CR XR CHEST 2V PA LATERAL from 03/06/2019 FINDINGS: BONES: No acute fracture is present. There is a rounded lucency in the subchondral bone of the release engineer ior patella superiorly. This may represent a subchondral cyst or an osteochondral defect. JOINTS: The knee is normally aligned. Small joint effusion. Patella appears high riding. SOFT TISSUE: There is mild prepatellar soft tissue swelling IMPRESSION: No acute fracture is identified. There is concern for soft tissue injury, an MRI should be considered for further evaluation. Subchondral rounded lucency at the articular surface of the patella. This may represent a subchondra l cyst or osteochondral defect. DATA REPOSITORY: RADIATION DOSE DELIVERED:
--- NOTE | 2020-04-28 11:43 | DI.VRAD_ITS ---
PROCEDURE INFORMATION: Exam: XR Left Humerus Exam date and time: 04/28/2020 11:05 AM Age: 54 years old Clinical indication: Pain and injury or trauma; Initial encounter; Blunt trauma (contusions or hematomas; Arm, upper; Left; Upper arm; Injury details: Pain fall TECHNIQUE: Imaging protocol: XR Left humerus Views: 2 or more views. COMPARISON: No relevant prior studies available. FINDINGS: Bones/joints: No acute fracture. No dislocation. Small bone island in the radial head. Mild degenerative changes are seen. Soft tissues: Normal. IMPRESSION: No acute osseous abnormality. Dictated and Authenticated by: Alexander Mccrary MD. Ordering:ALEK Foster MD
--- NOTE | 2020-04-28 11:49 | DI.VRAD_ITS ---
PROCEDURE INFORMATION: Exam: XR Left Knee Exam date and time: 04/28/2020 11:08 AM Age: 54 years old Clinical indication: Injury or trauma; Initial encounter; Blunt trauma; Knee; Right; Patient HX: Fall/pain TECHNIQUE: Imaging protocol: XR Left knee. Views: 4 or more views. COMPARISON: No relevant prior studies available. FINDINGS: Bones/joints: There is a 5 mm lucency along the articular surface of the superior patella. No other fracture or dislocation. There is a small suprapatellar joint effusion. The patella appears high in position. Soft tissues: There is prepatellar and infrapatellar soft tissue swelling. IMPRESSION: 1. High riding patella suggesting possible patellar ligament injury. Correlate with exam. 2. Small lucency within the posterior patella. Osteochondral defect not excluded. Dictated and Authenticated by: Alexander Mccrary MD. Ordering:ALEK Foster MD
== END 2020-04-28 12:06 | disposition home or self-care (01) ==
PROVIDERS: Emergency Provider Emergency Medicine; PCP Nurse Practitioner Family
DX: S40.012A Contusion of left shoulder, initial encounter (principal); S80.211A Abrasion, right knee, initial encounter; W19.XXXA Unspecified fall, initial encounter; E11.22 Type 2 diabetes mellitus with diabetic chronic kidney disease; Z79.4 Long term (current) use of insulin; I12.9 Hypertensive chronic kidney disease with stage 1 through stage 4 chronic kidney disease, or unspecified chronic kidney disease; N18.3 Chronic kidney disease, stage 3 (moderate)
CPT/HCPCS: 99284; 73060; 73564; 99283; L3650

== ENCOUNTER 2020-05-14 07:31 | Outpatient (CLI) | payer BC, SELFPAY ==
[2020-05-19 11:31] LABS: SARS-CoV-2 RNA Undetected (Undetected); SARS-CoV-2 Specimen Source Nasopharynx
== END 2020-05-14 07:51 ==
PROVIDERS: PCP Nurse Practitioner Family; Visit Provider Nurse Practitioner Family
DX: Z11.59 Encounter for screening for other viral diseases (principal)
CPT/HCPCS: U0003

== ENCOUNTER 2020-11-14 10:02 | Outpatient (CLI) | payer BC, SELFPAY ==
--- NOTE | 2020-11-14 09:00 | DI.RAD_ITS ---
EXAM: XR KNEE LT 3V AP,LAT,KWABENA CLINICAL HISTORY: left knee pain. TECHNIQUE: 2D digital imaging was performed. COMPARISON: CR,XR XR KNEE RT 4V AP,LAT,KWABENA,PAT from 04/28/2020 FINDINGS: BONES: No acute fracture is present. No bony destructive lesion is seen. JOINTS: The knee is normally aligned. Small joint effusion. Small spurs of the posterior patella. SOFT TISSUE: Vascular calcifications in the soft tissues. IMPRESSION: Mild degenerative changes of the left knee. Small joint effusion. DATA REPOSITORY: RADIATION DOSE DELIVERED:
--- NOTE | 2020-11-14 09:15 | DI.RAD_ITS ---
EXAM: XR PELVIS AP CLINICAL HISTORY: eval bilateral leg pain. TECHNIQUE: 2D digital imaging was performed. COMPARISON: No exams were available for comparison FINDINGS: BONES: No acute fracture is present. No bony destructive lesion is seen. JOINTS: No dislocation present. No joint space narrowing is present. SOFT TISSUE: Vascular calcification. IMPRESSION: Unremarkable radiographs of the pelvis. DATA REPOSITORY: RADIATION DOSE DELIVERED:
== END 2020-11-14 10:22 ==
PROVIDERS: PCP Nurse Practitioner Family; Referring Provider Nurse Practitioner Family; Visit Provider Student in an Organized Health Care Education/Training Program
DX: M79.604 Pain in right leg (principal); M79.605 Pain in left leg; M17.12 Unilateral primary osteoarthritis, left knee; M25.462 Effusion, left knee
CPT/HCPCS: 73562; 72170

== ENCOUNTER 2022-11-26 11:48 | Outpatient (CLI) | payer MEDICARE, BC, SELFPAY ==
--- NOTE | 2022-11-26 09:00 | DI.RAD_ITS ---
Exam(s) XR KNEES MERCHANT ONLY EXAM: XR KNEES MERCHANT ONLY INDICATION: eval bilateral PF pain. COMPARISON: CR,XR XR KNEE RT 4V AP,LAT,KWABENA,PAT from 04/28/2020 CR XR KNEE LT 3V AP,LAT,KWABENA from 11/14/2020 TECHNIQUE: 2D digital imaging was performed. Merchant views of both patella . FINDINGS: Patellofemoral joint spaces are maintained. There is a mild spurring at the articular aspect of the patella. There is substance some subchondral lucency bilaterally consistent with subchondral cysts. DATA REPOSITORY: RADIATION DOSE DELIVERED:
== END 2022-11-26 11:49 | disposition home or self-care (01) ==
LOC: DIORS 11:49
PROVIDERS: PCP Nurse Practitioner Family; Referring Provider Nurse Practitioner Family; Visit Provider Student in an Organized Health Care Education/Training Program
DX: M22.2X1 Patellofemoral disorders, right knee (principal); M22.2X2 Patellofemoral disorders, left knee; M21.371 Foot drop, right foot; M21.372 Foot drop, left foot; R29.898 Other symptoms and signs involving the musculoskeletal system; R29.6 Repeated falls; N18.5 Chronic kidney disease, stage 5; E11.9 Type 2 diabetes mellitus without complications; I12.9 Hypertensive chronic kidney disease with stage 1 through stage 4 chronic kidney disease, or unspecified chronic kidney disease; G62.9 Polyneuropathy, unspecified
CPT/HCPCS: 20610; 73565; J1040

== ENCOUNTER → 2023-04-29 14:38 | Outpatient (BNVA) | payer MEDICARE, BC, SELFPAY | PROVIDERS: PCP Nurse Practitioner Family; Referring Provider Nurse Practitioner Family | DX: M23.91 Unspecified internal derangement of right knee (principal); M23.92 Unspecified internal derangement of left knee; M22.2X1 Patellofemoral disorders, right knee; M22.2X2 Patellofemoral disorders, left knee; E11.9 Type 2 diabetes mellitus without complications | CPT/HCPCS: 20610; J1030 ==

== ENCOUNTER → 2023-07-15 10:50 | Outpatient (BNVA) | payer MEDICARE, SELFPAY | PROVIDERS: PCP Nurse Practitioner Family; Referring Provider Nurse Practitioner Family; Visit Provider Student in an Organized Health Care Education/Training Program | DX: M22.2X1 Patellofemoral disorders, right knee (principal); M22.2X2 Patellofemoral disorders, left knee; M23.91 Unspecified internal derangement of right knee; M23.92 Unspecified internal derangement of left knee; E11.9 Type 2 diabetes mellitus without complications | CPT/HCPCS: 99213 ==

== ENCOUNTER 2023-08-03 19:09 | Outpatient (REF) | payer MEDICARE, SELFPAY ==
[2023-08-03 15:28] LABS: HCT 30.7 % (40.0-50.0); MCH 31.3 pg (27.0-33.0); MCHC 32.6 % (32.0-36.0); MCV 96 fL (80-95); MPV 11.7 fL (8.0-11.0); Platelet Count 257 10^3/uL (130-400); RBC 3.19 10^6/uL (4.36-5.78); RDW 12.4 % (11.8-14.1); RDW-SD 43.8 fL; WBC 7.06 10^3/uL (4.4-10.8)
[2023-08-03 16:52] LABS: ALT 30 U/L (16-63); AST 15 U/L (15-37); Albumin 2.7 g/dL (3.4-5.0); Alkaline Phosphatase 121 U/L (46-116); Anion Gap 10.9 mmol/L (3-11); BUN 50 mg/dL (7-18); Bilirubin, Total 0.2 mg/dL (0.2-1.0); CO2 25.1 mmol/L (21.0-32.0); Calcium 8.2 mg/dL (8.5-10.1); Calculated LDL 84 mg/dL (<100); Chloride 96 mmol/L (98-107); Cholesterol 179 mg/dL (<200); Estimated GFR 8.27 (mL/min/1.73m2); HDL Cholesterol 53 mg/dL (40-60); Sodium 132 mmol/L (136-145); Total Protein 5.9 g/dL (6.4-8.2); Triglyceride 212 mg/dL (<150); Vitamin B12 777 pg/mL (193-986)
[2023-08-03 17:53] LABS: CREATININE 7.2 mg/dL (0.70-1.30); Glucose 631 mg/dL (74-106); Potassium 6.4 mmol/L (3.5-5.1)
== END 2023-08-03 19:10 | disposition home or self-care (01) ==
LOC: NCHCN 19:09
PROVIDERS: PCP Nurse Practitioner Family; Visit Provider Family Medicine
DX: E11.40 Type 2 diabetes mellitus with diabetic neuropathy, unspecified (principal); E78.5 Hyperlipidemia, unspecified
CPT/HCPCS: 80053; 80061; 85027; 82607

== ENCOUNTER 2023-08-26 15:28 | Outpatient (REF) | payer MEDICARE, SELFPAY ==
--- NOTE | 2023-08-26 14:40 | SKI_PTH ---
PATIENT: Gerson Bruner LOC: [facility]#:[id number] AGE/SX: 57/M ROOM: RE08/26/[address]: Ken Greer : 1965 BED: DIS: 08/26/2023 SPEC #: [id number] RECD: 08/26/23 18:39 STATUS: ILIR REQ #: [id number] HELEN: 08/26/23 14:[address]: Ken Greer DEPT: Surgical Specimen RECD BY: Rosemary Ang ENTERED: 08/26/23 18:40 SP TYPE: SREEKANTH SMYTH DR: Candace Maurice Tissues: 1 - SKIN BIOPSY(SHAVE/PUNCH) Procedures: SKIN LEVEL 4 Comments: [id number]
== END 2023-08-26 15:29 | disposition home or self-care (01) ==
LOC: NCHCN 15:28
PROVIDERS: PCP Nurse Practitioner Family; Visit Provider Family Medicine
DX: C44.629 Squamous cell carcinoma of skin of left upper limb, including shoulder (principal)
CPT/HCPCS: 88305

== ENCOUNTER 2023-12-17 12:06 | Emergency (ER) | payer MEDICARE, SELFPAY ==
[2023-12-17] VITALS (48 sets, daily range): BP systolic 122–183; BP diastolic 24–78; PULSE 0–84; RESP 8–26; TEMP 37.3; O2SAT 87–99
[2023-12-17 13:01] LABS: Lactate 0.8 mmol/L (0.6-1.4)
[2023-12-17 13:02] LABS: Absolute Basophil Count 0.05 10^3/uL (0.0-0.2); Absolute Eosinophil Count 0.28 10^3/uL (0.0-0.7); Absolute Lymphocyte Count 1.92 10^3/uL (1.2-3.4); Absolute Monocyte Count 1.45 10^3/uL (0.1-0.8); Basophils % 0.3; Eosinophils % 1.6; HCT 25.6 % (40.0-50.0); HGB 8.2 g/dL (13.5-17.5); Immature Grans % 0.6; Lymphocytes % 11.1; MCH 29.6 pg (27.0-33.0); MCV 92 fL (80-95); MPV 11.2 fL (8.0-11.0); Monocytes % 8.4; Platelet Count 305 10^3/uL (130-400); RBC 2.77 10^6/uL (4.36-5.78); RDW 12.9 % (11.8-14.1); RDW-SD 43.2 fL; WBC 17.31 10^3/uL (4.4-10.8)
[2023-12-17 13:26] LABS: ALT 16 U/L (16-63); AST 12 U/L (15-37); Albumin 1.9 g/dL (3.4-5.0); Alkaline Phosphatase 107 U/L (46-116); Anion Gap 7.3 mmol/L (3-11); BUN 17 mg/dL (7-18); Bilirubin, Total 0.2 mg/dL (0.2-1.0); CO2 31.7 mmol/L (21.0-32.0); Calcium 8.8 mg/dL (8.5-10.1); Chloride 99 mmol/L (98-107); Estimated GFR 18.87 (mL/min/1.73m2); Glucose 222 mg/dL (74-106); Lipase 44 U/L (16-77); Magnesium 1.8 mg/dL (1.8-2.4); Potassium 3.8 mmol/L (3.5-5.1); Sodium 138 mmol/L (136-145); Total Protein 6.6 g/dL (6.4-8.2)
[2023-12-17 13:27] LABS: CREATININE 3.6 mg/dL (0.70-1.30)
[2023-12-17 13:33] LABS: Procalcitonin 1.3 ng/mL
[2023-12-17 13:51] LABS: Influenza A PCR Negative (Negative); Influenza B PCR Negative (Negative); RSV PCR Negative (Negative)
[2023-12-17 13:53] LABS: COVID-19 PCR Positive (Negative); Source Nasopharynx
--- NOTE | 2023-12-17 14:30 | DI.RAD_ITS ---
Exam(s) XR CHEST 2V PA LATERAL EXAM: XR CHEST 2V PA LATERAL CLINICAL HISTORY: Elevated WBC, covid+ TECHNIQUE: 2D digital imaging was performed of the chest. Images were obtained. PA and lateral v iews were obtained. COMPARISON: CR XR CHEST 2V PA LATERAL from 10/17/2018 CR XR CHEST 2V PA LATERAL from 03/06/2019 FINDINGS: MEDIASTINUM: Normal. HEART: Upper limits of normal in size. PULMONARY VASCULATURE: Normal. LUNGS: No focal consolidating infiltrates are seen. There is mild increased interstitial lung markin gs present. PLEURAL SPACE: No pleural effusion or pneumothorax. BONE:Within normal limits for the patient's age. OTHER FINDINGS:Normal. IMPRESSION: 1. Mild increased interstitial markings in the lungs. This can be seen with infectious process. Inter stitial edema cannot be excluded. Please correlate clinically. 2. No focal consolidating infiltrates. DATA REPOSITORY: RADIATION DOSE DELIVERED:
--- NOTE | 2023-12-17 14:59 | W.ED.GENAD ---
Discharge Plan Discharge Details Chief Complaint: Fever Primary Care Provider: Candace Maurice ED Provider: Gianluca Herrera Home Meds and New Rx's Prescriptions: No Action calcium carbonate 500 mg calcium (1,250 mg) tablet,chewable 500 mg PO TID albuterol sulfate [ProAir HFA] 90 mcg/actuation HFA aerosol inhaler 1 puff IH Q6H PRN multivitamin tablet 1 tab PO DAILY insulin lispro [Humalog KwikPen Insulin] 100 unit/mL insulin pen 5 unit SC PRN Patient Comments: sliding scale sevelamer carbonate 800 mg tablet 800 mg PO BID nortriptyline 25 mg capsule 50 mg PO QHS (DME) Dynamic AFO See Rx Instructions .ROUTE .MEDSUPPLY Qty: 2 0RF Rx Instructions: Please measure and fit for bilateral dynamic ankle foot orthosis for bilateral foot drop and neuropathy (DME) BD Insulin Syringe 1 EACH syringe 1 ea Sub-Q TID Rx Instructions: DX:250.B/D INSULIN ULTRA-FINE 30G X 0.3 (DME) pen needle, diabetic 1 EACH needle 1 ea Sub-Q AC Qty: 180 Rx Instructions: DX:250. HUMALOG PEN NEEDLES (DME) blood-glucose meter [FreeStyle Lite Meter] 1 EACH kit 1 ea Miscellaneous TID Qty: 1 Patient Comments: pt states he checks his Blood sugar about evrey few days. 10/16/13 Rx Instructions: dx: 250 on insulin per insurance instead of Accu check (DME) lancets 1 EACH misc 1 ea Intradermal TID Qty: 300 Rx Instructions: DX:250. 01 on insulin Freestyle Lancets TEST STRIPS 1 EACH strip 1 ea Miscellaneous TID Qty: 270 4RF Rx Instructions: DX:250.01 on insulin Freestyle Lite test strips (per insurance) mini Levemir FlexTouch U100 Insulin 100 unit/mL (3 mL) insulin pen 65 unit subcut HS carvedilol 12.5 mg tablet 12.5 mg PO BID Rx Instructions: must administer with a meal/food famotidine 40 mg tablet 40 mg PO DAILY furosemide 20 mg tablet 20 mg PO DAILY Patient Comments: pt unsure of dose atorvastatin 40 mg tablet 40 mg PO QHS hydrochlorothiazide 25 mg tablet 25 mg PO BID pregabalin 100 mg capsule 100 mg PO BID sildenafil (pulm.hypertension) 20 mg tablet 20 mg PO PRN Rx Instructions: administer doses at least 4-6 hours apart hydroxyzine HCl 25 mg tablet 25 mg PO QHS PRN aspirin 81 mg Tablet,Chewable 81 mg PO DAILY amlodipine 10 mg Tablet 10 mg PO DAILY HPI General Mode of arrival: ambulatory. Date/Time Provider Initiated Documentation: 12/17/23 12:19. Limitations to Documentation: no limitations. Information obtained by: patient and RN notes reviewed. History of Present Illness 58 year old M presents to the emergency department with the chief complaint of Sent from dialysis due to elevated white blood cell count, Patient notes nausea/vomiting (Intermittent secondary to pain medication and antibiotic). Related Data Home Medications Medication Instructions Recorded Confirmed insulin syringe-needle U-100 1 mL 03/21/13 07/15/23 26 x 1/2 (BD Insulin Syringe) blood-glucose meter (FreeStyle ##1 03/24/13 07/15/23 Lite Meter kit) pen needle, diabetic 31 gauge x #180 units 03/24/13 07/15/23/16 lancets 28 gauge #300 ea 08/08/13 07/15/23 amlodipine 10 mg tablet 10 mg PO DAILY 08/05/18 07/15/23 aspirin 81 mg chewable tablet 81 mg PO DAILY 08/05/18 07/15/23 albuterol sulfate 90 mcg/actuation 1 puff inhalation Q6H PRN 04/20/19 07/15/23 aerosol inhaler (ProAir HFA) calcium carbonate 500 mg calcium 500 mg PO TID 04/20/19 07/15/23 (1,250 mg) chewable tablet insulin lispro 100 unit/mL 5 unit subcut PRN 04/20/19 07/15/23 subcutaneous pen (Humalog KwikPen (U-100) Insulin) multivitamin 1 tab PO DAILY 04/20/19 07/15/23 sevelamer carbonate 800 mg tablet 800 mg PO BID 04/20/19 07/15/23 atorvastatin 40 mg tablet 40 mg PO QHS 08/18/22 07/15/23 carvedilol 12.5 mg tablet 12.5 mg PO BID 08/18/22 07/15/23 famotidine 40 mg tablet 40 mg PO DAILY 08/18/22 07/15/23 furosemide 20 mg tablet 20 mg PO DAILY 08/18/22 07/15/23 hydrochlorothiazide 25 mg tablet 25 mg PO BID 08/18/22 07/15/23 insulin detemir U-100 100 unit/mL 65 unit subcut HS 08/18/22 07/15/23 (3 mL) subcutaneous pen (Levemir FlexTouch U-100 Insulin) pregabalin 100 mg capsule 100 mg PO BID 08/18/22 07/15/23 sildenafil (pulm.hypertension) 20 20 mg PO PRN 08/18/22 07/15/23 mg tablet Dynamic AFO #2 ea 11/26/22 07/15/23 hydroxyzine HCl 25 mg tablet 25 mg PO QHS PRN 11/26/22 07/15/23 nortriptyline 25 mg capsule 50 mg PO QHS 11/26/22 07/15/23 Previous Rx's Medication Instructions Recorded Dynamic AFO #2 ea 11/26/22 Allergies Allergy/AdvReac Type Severity Reaction Status Date / Time clindamycin Allergy Mild HIVES Verified 07/15/23 10:55 Penicillins Allergy Mild Verified 07/15/23 10:55 sertraline AdvReac Mild Nausea Verified 07/15/23 10:55 gabapentin AdvReac ANKLE EDEMA Verified 07/15/23 10:55 General Stated Complaint: Fever MONIKA: 3 Review of Systems Constitutional Constitutional: Reports chills, Denies fever(s), Denies headache(s) and Reports malaise ENT Ears, Nose, Mouth, and Throat: Denies headache(s) Cardiovascular Cardiovascular: Denies chest pain and Denies dyspnea Respiratory Respiratory: Denies cough and Denies dyspnea Gastrointestinal Gastrointestinal: Denies abdominal pain, Denies diarrhea, Reports nausea and Reports vomiting Musculoskeletal Musculoskeletal: Reports other (Chronic diabetic foot wound) Integumentary/Breasts Skin/Breast: Reports wounds Neurologic Neurologic: Denies headache(s) Exam Const General: cooperative, no acute distress and not ill appearing Orientation: alert, awake and oriented x3 HENMT Head: normal to inspection and atraumatic Mouth: moist mucous membranes Resp Effort & Inspection: normal respiratory effort, able to speak in complete sentences and no respiratory distress Auscultation: clear to auscultation bilaterally Cardio Rate: regular rate Rhythm: regular rhythm Heart Sounds: S1 normal and S2 normal Pulses: radial pulses present and dorsalis pedis present GI Palpation: soft, not firm, no guarding and nontender Skin General skin exam: no rashes or lesions noted Neuro General: patient alert, patient awake, patient oriented x3, moves all extremities and no focal motor deficits Sensory Exam: no sensory deficits noted Extrem Left lower extremity: foot Details: tenderness Location: of the calcaneus and other (Diabetic foot wound calcaneus surrounding erythema) Course Vital Signs Vital signs: Vital Signs Temperature 37.3 C 12/17/23 12:13 Pulse 75 12/17/23 12:13 Respiratory Rate 16 12/17/23 12:13 Blood Pressure 123/72 12/17/23 12:13 Pulse Oximetry 99 12/17/23 12:13 Temperature 37.3 C 12/17/23 13:47 Temperature Source Oral 12/17/23 13:47 Pulse 73 12/17/23 13:54 Pulse 74 12/17/23 14:00 Respiratory Rate 19 12/17/23 14:00 Respiratory Effort Normal 12/17/23 13:47 Blood Pressure 125/46 L 12/17/23 13:54 Blood Pressure Mean 63 12/17/23 13:54 Blood Pressure Position Sitting 12/17/23 13:47 Pulse Oximetry 94 12/17/23 13:47 Oxygen Delivery Method Room Air 12/17/23 13:47 Oxygen Flow Rate 0 12/17/23 12:13 Pain Level 0 12/17/23 12:13 Lab/Test Results Lab/Test Results: 12/17/23 13:15 Blood Blood Culture - Pending 12/17/23 12:51 Blood Blood Culture - Pending Laboratory Tests Range/Units 12/17/23 12/17/23 12:51 12:51 WBC (4.4-10.8) 10^3/uL 17.31 H RBC (4.36-5.78) 10^6/uL 2.77 L Hgb (13.5-17.5) g/dL 8.2 L Hct (40.0-50.0) % 25.6 L MCV (80-95) fL 92 MCH (27.0-33.0) pg 29.6 MCHC (32.0-36.0) % 32.0 RDW (11.8-14.1) % 12.9 Plt Count (130-400) 10^3/uL 305 MPV (8.0-11.0) fL 11.2 H Immature Gran % 0.6 Neutrophils % 78.0 Lymphocytes % 11.1 Monocytes % 8.4 Eosinophils % 1.6 Basophils % 0.3 Nucleated RBC % (0.0-0.3) % 0.0 Absolute Neutrophils (1.2-6.7) 10^3/uL 13.50 H Absolute Lymphocytes (1.2-3.4) 10^3/uL 1.92 Absolute Monocytes (0.1-0.8) 10^3/uL 1.45 H Absolute Eosinophils (0.0-0.7) 10^3/uL 0.28 Absolute Basophils (0.0-0.2) 10^3/uL 0.05 VBG Lactate (0.6-1.4) mmol/L 0.8 Sodium (136-145) mmol/L 138 Potassium (3.5-5.1) mmol/L 3.8 Chloride (98-107) mmol/L 99 Carbon Dioxide (21.0-32.0) mmol/L 31.7 Anion Gap (3-11) mmol/L 7.3 BUN (7-18) mg/dL 17 Creatinine (0.70-1.30) mg/dL 3.6 H* Est GFR (CKD-EPI 2020) (mL/min/1.73m2) 18.87 Glucose (74-106) mg/dL 222 H Calcium (8.5-10.1) mg/dL 8.8 Magnesium (1.8-2.4) mg/dL 1.8 Total Bilirubin (0.2-1.0) mg/dL 0.2 AST (15-37) U/L 12 L ALT (16-63) U/L 16 Alkaline Phosphatase (46-116) U/L 107 Total Protein (6.4-8.2) g/dL 6.6 Albumin (3.4-5.0) g/dL 1.9 L Lipase Cancelled 44 Procalcitonin ng/mL 1.3 COVID-19 Source Nasopharynx SARS-CoV-2 (PCR) (Negative) Positive A Influenza Type A (PCR) (Negative) Negative Influenza Type B (PCR) (Negative) Negative RSV (PCR) (Negative) Negative Medical Decision Making Patient presenting to the emergency department for chief complaint of elevated white count noted by dialysis. States that he has been dealing with a chronic diabetic foot wound and did have COVID 2 to 3 weeks ago but otherwise has been feeling okay, recovered from illness okay and has been getting dialysis regularly including today normal schedule and normal duration. He states they were concerned due to his elevated white blood cell count. He reports that he has been following up with orthopedic for his diabetic foot wound and they did place him on antibiotics which she has been taking and they had marked the redness with a skin marker which has not worsened at all and may be slightly improved. Patient denies any fever or chills, does state intermittent nausea and vomiting but is secondary to pain medication and/or oral antibiotics which she has had these reactions in the past. Patient states that he otherwise feels fine and if the dialysis center did not note a elevated white count he would not of come. Physical exam does show a diabetic foot wound to left lower extremity, no significant streaking erythema he has noted, exam consistent with history, otherwise abdomen is soft nontender, clear lung sounds, patient alert and oriented, patient afebrile and stable vital signs with normal tensive blood pressure not tachycardic normal oxygen saturation. Given patient's history of diabetes, dialysis, chronic foot wound will perform labs including blood cultures and lactate along with procalcitonin. Patient denies any need for pain medication and given that he states he feels fine otherwise we will just monitor. Review of labs show a significant leukocytosis with white count of 17.31, neutrophils are elevated at 13 along with monocytes at 1.45, there is a anemia noted with hemoglobin of 8.2. CMP is as expected with creatinine at 3.6, glucose is elevated at 222, albumin low at 1.9 otherwise nondiagnostic. Patient is positive for COVID but again difficult to determine if this is new as I suspect this is continued positive test given that patient had COVID 2 to 3 weeks ago with full resolution of symptoms and is asymptomatic for respiratory illness. Given significant leukocytosis will perform x-ray imaging of foot for evaluation of osteomyelitis and will perform chest x-ray as well. Quality:[facility] Health Related Social Needs: No Data to Display PFSH All Active Problems Foot drop, bilateral (Acute) Weakness of both legs (Acute) Hip dysplasia (Acute) Patellofemoral disorders, left knee (Acute) Patellofemoral disorders, right knee (Acute) Internal derangement of right knee (Acute) Internal derangement of left knee (Acute) Left leg pain (Acute) Right leg pain (Acute) Olecranon bursitis, right elbow (Acute) Rectal bleeding (Acute) CKD (chronic kidney disease) (Chronic) STAGE 5 Peripheral neuropathy (Chronic) Hypertension (Chronic) Diabetes mellitus (Chronic) DVT prophylaxis (Acute) Sciatica (Acute) Medical History Dialysis patient AV fistula left arm Tubular adenoma of colon (2016) TIA (transient ischemic attack) Tobacco dependence Hyperlipidemia Anxiety and depression Degenerative joint disease LUMBAR SPINE Exertional shortness of breath Bilateral leg edema Lipoma GERD (gastroesophageal reflux disease) Chronic back pain Retinopathy Blood in stool Surgical History Colonoscopy - MAC (10/08/16) Cholecystectomy Family History Father Colon cancer Social History Smoking/Tobacco Use Status: Current every day Tobacco Type: cigarettes Smoking risk assessment performed?: Yes Alcohol Intake: never Drug use: Daily Substance use type: marijuana Current gender identity: male Do you feel safe at home: Yes Do you feel safe in your relationship?: Yes Sign Out Sign Out Data: Sign Out Comment: Patient pending review of radiological imaging of chest and left lower extremity due to significant leukocytosis and diabetic foot wound. If unremarkable suspect close monitoring and 48-hour return for repeat of blood work will return for any new or worsening symptoms given that patient is otherwise at baseline per his report. Patient to continue previously prescribed outpatient antibiotics unless additional sources noted. Last updated by Gianluca Herrera NP at 12/17/23 15:33
--- NOTE | 2023-12-17 15:40 | ED.PROG_ITS ---
Date of service: 12/17/23 Time of Service: 15:40 Medical Decision Making This dictation utilizes [id number] dictation software and may contain unedited grammatical errors. Patient seen in sign-out from MUKESH Alvarez this 58 y/o M presents to ED today with a chief complaint of possible infection- sent from dialysis does output some urine - patient is on antibiotics (amoxicillin) for a chronic diabetic foot wound that is traced with a marker and not expanding. Patient incidentally had Covid 2-3 weeks ago, symptoms improved. Dialysis was concerned due to his elevated WBCs. Patients' medical history: Dialysis patient, AV fistula, history of TIA, tobacco dependence, hyperlipidemia, bilateral leg edema, GERD, history of GI bleeding, history of cholecystectomy, bilateral foot drop, peripheral neuropathy, diabetes mellitus, history of DVT not currently anticoagulated. Family and social history: Noncontributory. Pertinent exam findings / vital signs include left lower extremity has a calcaneal diabetic foot wound with surrounding erythema, possibly improved from where it is traced with skin marker. -Fine Rales at bases, on 2L O2 by [place] without home-oxygen. Differential / pathologies of concern include Diabetic Foot Ulcer, Cellulitis, Osteomyelitis. Diagnostic studies of: -CBC, CMP, Lactate, Procalcitonin, Lipase, Covid/Flu/RSV PCR, XR L Foot, XR Chest. *Added on CRP/ESR for osteo evaluation after sign-out. -WBCs 17.31, anemic to 8.2 -Lactate negative, Procalitonin elevated to 1.3- concern infection/sepsis -SCr doing well for his baseline at 3.8 after dialysis -Potassium wnl -Lipase neg -Covid/Flu/RSV PCR is positive for Covid, likely residual -CRP elevated to 15, ESR elevated to 45 -Blood Cx's pending -XR Chest showed increased interstitial markings, likely residual from Covid, no respiratory distress, does not have crackles or heart failure -XR Foot shows no radiographic evidence of osteomyelitis Interventions of: -Discussed with Orthopaedics Dr. Reina and we both feel amoxicillin is not an ideal antibiotic for diabetic foot wound. I am concerned for sepsis with a procalcitonin of 1.3. We discussed starting him on Ciprofloxacin 500-750 BID. After discussion with the patient his preference is to monitor at-home with strict return criteria- but I noticed he was on 2L O2 by CT and is not normally oxygen dependent. Will trial off O2 for admit/transfer decision as we do not have dialysis, which he would be due for on Wednesday. Ambulatory SpO2 is 97% on RA- will dual cover his foot wound and possible secondary post-covid PNA with Levoquin, and discharge home per patient's preference. Lengthy discussion on strict return criteria and guarded condition with elevated procalcitonin. Findings not consistent with hypoxic respiratory failure, possible for osteomyelitis, but followed by podiatry out of our network- has appointment this . No elevated lactate, would encourage the patient to repeat labs on Wednesday outpatient if possible, but strict return to ED criteria. Disposition of Diabetic Foot Ulcer. Patient verbalized understanding of the plan and return to ED criteria and engaged in shared decision making. Medical Records Medical records reviewed: Yes I reviewed the patient's medical records. Imaging Data Radiologic Study: Attestation: I personally reviewed and interpreted this imaging study as follows: Imaging: X-Ray Radiologist's impression: EXAM: XR CHEST 2V PA LATERAL CLINICAL HISTORY: Elevated WBC, covid+ TECHNIQUE: 2D digital imaging was performed of the chest. Images were obtained. PA and lateral views were obtained. COMPARISON: CR XR CHEST 2V PA LATERAL from 10/17/2018 CR XR CHEST 2V PA LATERAL from 03/06/2019 FINDINGS: MEDIASTINUM: Normal. HEART: Upper limits of normal in size. PULMONARY VASCULATURE: Normal. LUNGS: No focal consolidating infiltrates are seen. There is mild increased interstitial lung markings present. PLEURAL SPACE: No pleural effusion or pneumothorax. BONE:Within normal limits for the patient's age. OTHER FINDINGS:Normal. IMPRESSION: 1. Mild increased interstitial markings in the lungs. This can be seen with infectious process. Interstitial edema cannot be excluded. Please correlate clinically. 2. No focal consolidating infiltrates. Radiologic Study #2: Attestation: I personally reviewed and interpreted this imaging study as follows: Imaging: X-Ray Radiologist's impression: EXAM: XR FOOT LT COMPLETE CLINICAL HISTORY: Chronic infection, osteomyelitis. TECHNIQUE: 2D digital imaging was performed of the left foot. Three images were obtained. AP, oblique and lateral views were obtained. COMPARISON: No exams were available for comparison FINDINGS: BONES: No acute fracture is present. No bony destructive lesion is seen. JOINTS: No dislocation present. Mild degenerative changes are seen in the foot. SOFT TISSUE: Vascular calcifications are present. There is soft tissue swelling of the foot. IMPRESSION: No radiographic evidence to suggest osteomyelitis. Lab Data Lab results reviewed: Yes I reviewed the patient's lab results. Labs: 12/17/23 13:15 Blood Blood Culture - Pending 12/17/23 12:51 Blood Blood Culture - Pending Laboratory Tests Range/Units 12/17/23 12/17/23 12:51 12:51 WBC (4.4-10.8) 10^3/uL 17.31 H RBC (4.36-5.78) 10^6/uL 2.77 L Hgb (13.5-17.5) g/dL 8.2 L Hct (40.0-50.0) % 25.6 L MCV (80-95) fL 92 MCH (27.0-33.0) pg 29.6 MCHC (32.0-36.0) % 32.0 RDW (11.8-14.1) % 12.9 Plt Count (130-400) 10^3/uL 305 MPV (8.0-11.0) fL 11.2 H Immature Gran % 0.6 Neutrophils % 78.0 Lymphocytes % 11.1 Monocytes % 8.4 Eosinophils % 1.6 Basophils % 0.3 Nucleated RBC % (0.0-0.3) % 0.0 Absolute Neutrophils (1.2-6.7) 10^3/uL 13.50 H Absolute Lymphocytes (1.2-3.4) 10^3/uL 1.92 Absolute Monocytes (0.1-0.8) 10^3/uL 1.45 H Absolute Eosinophils (0.0-0.7) 10^3/uL 0.28 Absolute Basophils (0.0-0.2) 10^3/uL 0.05 ESR (0-20) mm/hr 45 H VBG Lactate (0.6-1.4) mmol/L 0.8 Sodium (136-145) mmol/L 138 Potassium (3.5-5.1) mmol/L 3.8 Chloride (98-107) mmol/L 99 Carbon Dioxide (21.0-32.0) mmol/L 31.7 Anion Gap (3-11) mmol/L 7.3 BUN (7-18) mg/dL 17 Creatinine (0.70-1.30) mg/dL 3.6 H* Est GFR (CKD-EPI 2020) (mL/min/1.73m2) 18.87 Glucose (74-106) mg/dL 222 H Calcium (8.5-10.1) mg/dL 8.8 Magnesium (1.8-2.4) mg/dL 1.8 Total Bilirubin (0.2-1.0) mg/dL 0.2 AST (15-37) U/L 12 L ALT (16-63) U/L 16 Alkaline Phosphatase (46-116) U/L 107 C-Reactive Protein (<or=0.5) mg/dL 15.31 H Total Protein (6.4-8.2) g/dL 6.6 Albumin (3.4-5.0) g/dL 1.9 L Lipase Cancelled 44 Procalcitonin ng/mL 1.3 COVID-19 Source Nasopharynx SARS-CoV-2 (PCR) (Negative) Positive A Influenza Type A (PCR) (Negative) Negative Influenza Type B (PCR) (Negative) Negative RSV (PCR) (Negative) Negative Quality:[facility] Health Related Social Needs: No Data to Display Sign Out Sign Out Data: Sign Out Comment: Patient pending review of radiological imaging of chest and left lower extremity due to significant leukocytosis and diabetic foot wound. If unremarkable suspect close monitoring and 48-hour return for repeat of blood work will return for any new or worsening symptoms given that patient is otherwise at baseline per his report. Patient to continue previously prescribed outpatient antibiotics unless additional sources noted. Last updated by Gianluca Herrera NP at 12/17/23 15:33 Discharge Plan Disposition Patient Disposition: Home Condition: Stable Discharge Details Clinical Impression: Diabetic foot ulcer Primary Care Provider: Candace Maurice ED Provider: Noe Baker Home Meds and New Rx's Prescriptions: New levofloxacin 750 mg tablet 750 mg PO Q24H 10 Days Qty: 10 0RF Continued calcium carbonate 500 mg calcium (1,250 mg) tablet,chewable 500 mg PO TID albuterol sulfate [ProAir HFA] 90 mcg/actuation HFA aerosol inhaler 1 puff IH Q6H PRN multivitamin tablet 1 tab PO DAILY insulin lispro [Humalog KwikPen Insulin] 100 unit/mL insulin pen 5 unit SC PRN Patient Comments: sliding scale sevelamer carbonate 800 mg tablet 800 mg PO BID nortriptyline 25 mg capsule 50 mg PO QHS (DME) Dynamic AFO See Rx Instructions .ROUTE .MEDSUPPLY Qty: 2 0RF Rx Instructions: Please measure and fit for bilateral dynamic ankle foot orthosis for bilateral foot drop and neuropathy (DME) BD Insulin Syringe 1 EACH syringe 1 ea Sub-Q TID Rx Instructions: DX:250.B/D INSULIN ULTRA-FINE 30G X 0.3 (DME) pen needle, diabetic 1 EACH needle 1 ea Sub-Q AC Qty: 180 Rx Instructions: DX:250. HUMALOG PEN NEEDLES (DME) blood-glucose meter [FreeStyle Lite Meter] 1 EACH kit 1 ea Miscellaneous TID Qty: 1 Patient Comments: pt states he checks his Blood sugar about evrey few days. 10/16/13 Rx Instructions: dx: 250 on insulin per insurance instead of Accu check (DME) lancets 1 EACH misc 1 ea Intradermal TID Qty: 300 Rx Instructions: DX:250. 01 on insulin Freestyle Lancets TEST STRIPS 1 EACH strip 1 ea Miscellaneous TID Qty: 270 4RF Rx Instructions: DX:250.01 on insulin Freestyle Lite test strips (per insurance) mini Levemir FlexTouch U100 Insulin 100 unit/mL (3 mL) insulin pen 65 unit subcut HS carvedilol 12.5 mg tablet 12.5 mg PO BID Rx Instructions: must administer with a meal/food famotidine 40 mg tablet 40 mg PO DAILY furosemide 20 mg tablet 20 mg PO DAILY Hold Instructions: Pt Stopped/Never Started Patient Comments: pt unsure of dose atorvastatin 40 mg tablet 40 mg PO QHS hydrochlorothiazide 25 mg tablet 25 mg PO BID pregabalin 100 mg capsule 100 mg PO BID aspirin 81 mg Tablet,Chewable 81 mg PO DAILY amlodipine 10 mg Tablet 10 mg PO DAILY amoxicillin 500 mg capsule 500 mg PO DAILY oxycodone-acetaminophen 5-325 mg tablet 1 tab PO BID Patient Comments: TAKE ONE TABLET BY MOUTH TWICE A DAY NEEDED FOR PAIN, MAXIMUM DAILY DOSE = 2 TABLETS Santyl 250 unit/gram ointment 1 applic TOPICAL DAILY PRN Discharge Instructions Instructions: Levofloxacin (By mouth), Diabetic Foot Ulcers (ED), Pneumonia (ED) Additional Instructions: You were seen in the emergency department for your possible chills, recommended to present to ED from dialysis. You do have elevated white blood cells with a negative lactate which is a marker of sepsis, another marker of sepsis a procalcitonin value which shows high likelihood for infection and your inflammatory markers are elevated with concern for possible osteomyelitis from your diabetic foot ulcer of your left calcaneus. There was no evidence of osteomyelitis on x-ray though MRI is a better study for this, you state you had an MRI 2 weeks ago and you are followed by podiatry. I spoke with our orthopedics team and we do not agree that amoxicillin is an adequate antibiotic to cover your condition at this time. I started you on levofloxacin to cover many more organisms than your amoxicillin will cover. There was some increased interstitial markings on your chest x-ray but you did have COVID 2 weeks ago the levofloxacin will cover a secondary bacterial pneumonia simultaneously as it well for your diabetic foot ulcer. Please monitor your condition closely at home and return for any increasing symptoms of illness like nausea, shakiness, weakness, fever not responding to Tylenol and ibuprofen. Please continue your dialysis as needed. 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 Referrals: Candace Maurice [Primary Care Provider] -
--- NOTE | 2023-12-17 15:42 | DI.RAD_ITS ---
Exam(s) XR FOOT LT COMPLETE EXAM: XR FOOT LT COMPLETE CLINICAL HISTORY: Chronic infection, osteomyelitis. TECHNIQUE: 2D digital imaging was performed of the left foot. Three images were obtained. AP, obli que and lateral views were obtained. COMPARISON: No exams were available for comparison FINDINGS: BONES: No acute fracture is present. No bony destructive lesion is seen. JOINTS: No dislocation present. Mild degenerative changes are seen in the foot. SOFT TISSUE: Vascular calcifications are present. There is soft tissue swelling of the foot. IMPRESSION: No radiographic evidence to suggest osteomyelitis. DATA REPOSITORY: RADIATION DOSE DELIVERED:
[2023-12-17 15:55] LABS: ESR 45 mm/hr (0-20)
[2023-12-17 16:01] LABS: C-Reactive Protein 15.31 mg/dL (<or=0.5)
[2023-12-17 17:54] LABS: Bilirubin Negative (Negative); Blood Trace-lysed (Negative); Clarity Sl Cloudy (Clear); Glucose 500 mg/dL (Negative); Ketones Negative (Negative); Leukocyte Esterase Negative (Negative); Nitrite Negative (Negative); Urobilinogen 0.2 mg/dL (Up to 0.2)
[2023-12-17 18:04] LABS: Bacteria Few HPF (Negative); C & S Indicated? C&S Done As Ordered; Casts Negative LPF (Negative); Crystals Negative HPF (Negative); Epithelial Cells Few HPF (Negative); Mucus Negative (Negative); RBC 0-2 HPF (0-2)
[2023-12-17] MEDS: levoFLOXacin 500 MG, levoFLOXacin 250 MG 750 MG PO (18:20)
== END 2023-12-17 18:30 | disposition home or self-care (01) ==
PROVIDERS: Nurse Practitioner Family; Emergency Provider Physician Assistant; PCP Nurse Practitioner Family
DX: R11.2 Nausea with vomiting, unspecified (principal); E11.621 Type 2 diabetes mellitus with foot ulcer; E11.319 Type 2 diabetes mellitus with unspecified diabetic retinopathy without macular edema; E11.40 Type 2 diabetes mellitus with diabetic neuropathy, unspecified; E11.22 Type 2 diabetes mellitus with diabetic chronic kidney disease; Z11.52 Encounter for screening for COVID-19; Z99.2 Dependence on renal dialysis; Z79.4 Long term (current) use of insulin; Z79.82 Long term (current) use of aspirin
CPT/HCPCS: 00123; 36415; 80053; 83690; 84145; 85652; 87040; 87637; 99285; 71046; 73630; 81003; 81015; 83605; 83735; 85025; 86140; 87086; 99284

== ENCOUNTER 2023-12-19 09:31 | Emergency (ER) | payer MEDICARE, SELFPAY ==
[2023-12-19] VITALS (37 sets, daily range): BP systolic 56–182; BP diastolic 34–151; PULSE 62–85; RESP 11–22; TEMP 37.5–38.1; O2SAT 79–97
--- NOTE | 2023-12-19 09:51 | ED.GENADUL_ITS ---
Discharge Plan Disposition Patient Disposition: Transfer-Acute Inpatient Care Specific Acute Inpt Facility: [facility] Condition: Serious Discharge Details Chief Complaint: Cellulitis Clinical Impression: Anemia, Necrotizing soft tissue infection, Leukocytosis, Sepsis, Acute hyperkalemia Primary Care Provider: Candace Maurice ED Provider: Rachna Santoro Home Meds and New Rx's Prescriptions: No Action calcium carbonate 500 mg calcium (1,250 mg) tablet,chewable 500 mg PO TID albuterol sulfate [ProAir HFA] 90 mcg/actuation HFA aerosol inhaler 1 puff IH Q6H PRN multivitamin tablet 1 tab PO DAILY insulin lispro [Humalog KwikPen Insulin] 100 unit/mL insulin pen 5 unit SC PRN Patient Comments: sliding scale sevelamer carbonate 800 mg tablet 800 mg PO BID nortriptyline 25 mg capsule 50 mg PO QHS (DME) Dynamic AFO See Rx Instructions .ROUTE .MEDSUPPLY Qty: 2 0RF Rx Instructions: Please measure and fit for bilateral dynamic ankle foot orthosis for bilateral foot drop and neuropathy (DME) BD Insulin Syringe 1 EACH syringe 1 ea Sub-Q TID Rx Instructions: DX:250.B/D INSULIN ULTRA-FINE 30G X 0.3 (DME) pen needle, diabetic 1 EACH needle 1 ea Sub-Q AC Qty: 180 Rx Instructions: DX:250. HUMALOG PEN NEEDLES (DME) blood-glucose meter [FreeStyle Lite Meter] 1 EACH kit 1 ea Miscellaneous TID Qty: 1 Patient Comments: pt states he checks his Blood sugar about evrey few days. 10/16/13 Rx Instructions: dx: 250 on insulin per insurance instead of Accu check (DME) lancets 1 EACH misc 1 ea Intradermal TID Qty: 300 Rx Instructions: DX:250. 01 on insulin Freestyle Lancets TEST STRIPS 1 EACH strip 1 ea Miscellaneous TID Qty: 270 4RF Rx Instructions: DX:250.01 on insulin Freestyle Lite test strips (per insurance) mini Levemir FlexTouch U100 Insulin 100 unit/mL (3 mL) insulin pen 65 unit subcut HS carvedilol 12.5 mg tablet 12.5 mg PO BID Rx Instructions: must administer with a meal/food famotidine 40 mg tablet 40 mg PO DAILY furosemide 20 mg tablet 20 mg PO DAILY Hold Instructions: Pt Stopped/Never Started Patient Comments: pt unsure of dose atorvastatin 40 mg tablet 40 mg PO QHS hydrochlorothiazide 25 mg tablet 25 mg PO BID pregabalin 100 mg capsule 100 mg PO BID aspirin 81 mg Tablet,Chewable 81 mg PO DAILY amlodipine 10 mg Tablet 10 mg PO DAILY amoxicillin 500 mg capsule 500 mg PO DAILY oxycodone-acetaminophen 5-325 mg tablet 1 tab PO BID Patient Comments: TAKE ONE TABLET BY MOUTH TWICE A DAY NEEDED FOR PAIN, MAXIMUM DAILY DOSE = 2 TABLETS Santyl 250 unit/gram ointment 1 applic TOPICAL DAILY PRN levofloxacin 750 mg tablet 750 mg PO Q24H 10 Days Qty: 10 0RF HPI General Date/Time Provider Initiated Documentation: 12/19/23 09:47 . Limitations to Documentation: no limitations . Information obtained by: patient, family, RN notes reviewed and old records reviewed . History of Present Illness 58 year old M presents to the emergency department with the chief complaint of left foot pain, fever, described as severe, with intensity rated at >10. Quality is described as stabbing, and is localized to the left and lower extremity. Patient extremity (from foot to thigh). Patient started experiencing this day(s) and it has been constant. No relieving factors improve symptom(s), Movement worsens symptoms . Patient notes diaphoresis, fever/chills, loss of appetite and malaise; denies chest pain, cough, nausea/vomiting and shortness of breath. Patient did receive the following treatments prior to arrival, other (Ciprofloxacin) Related Data Home Medications Medication Instructions Recorded Confirmed insulin syringe-needle U-100 1 mL 03/21/13 12/17/23 26 x 1/2 (BD Insulin Syringe) blood-glucose meter (FreeStyle ##1 03/24/13 12/17/23 Lite Meter kit) pen needle, diabetic 31 gauge x #180 units 03/24/13 12/17/23 5/16 lancets 28 gauge #300 ea 08/08/13 12/17/23 amlodipine 10 mg tablet 10 mg PO DAILY 08/05/18 12/17/23 aspirin 81 mg chewable tablet 81 mg PO DAILY 08/05/18 12/17/23 albuterol sulfate 90 mcg/actuation 1 puff inhalation Q6H PRN 04/20/19 12/17/23 aerosol inhaler (ProAir HFA) calcium carbonate 500 mg calcium 500 mg PO TID 04/20/19 12/17/23 (1,250 mg) chewable tablet insulin lispro 100 unit/mL 5 unit subcut PRN 04/20/19 12/17/23 subcutaneous pen (Humalog KwikPen (U-100) Insulin) multivitamin 1 tab PO DAILY 04/20/19 12/17/23 sevelamer carbonate 800 mg tablet 800 mg PO BID 04/20/19 12/17/23 atorvastatin 40 mg tablet 40 mg PO QHS 08/18/22 12/17/23 carvedilol 12.5 mg tablet 12.5 mg PO BID 08/18/22 12/17/23 famotidine 40 mg tablet 40 mg PO DAILY 08/18/22 12/17/23 furosemide 20 mg tablet 20 mg PO DAILY 08/18/22 12/17/23 hydrochlorothiazide 25 mg tablet 25 mg PO BID 08/18/22 12/17/23 insulin detemir U-100 100 unit/mL 65 unit subcut HS 08/18/22 12/17/23 (3 mL) subcutaneous pen (Levemir FlexTouch U-100 Insulin) pregabalin 100 mg capsule 100 mg PO BID 08/18/22 12/17/23 Dynamic AFO #2 ea 11/26/22 12/17/23 nortriptyline 25 mg capsule 50 mg PO QHS 11/26/22 12/17/23 amoxicillin 500 mg capsule 500 mg PO DAILY 12/17/23 12/17/23 collagenase clostridium histo. 250 1 applic topical DAILY PRN 12/17/23 12/17/23 unit/gram topical ointment (Santyl) levofloxacin 750 mg tablet 750 mg PO Q24H diabetic foot ulcer 12/17/23 10 days #10 tabs oxycodone-acetaminophen 5 mg-325 1 tab PO BID 12/17/23 12/17/23 mg tablet Previous Rx's Medication Instructions Recorded Dynamic AFO #2 ea 11/26/22 levofloxacin 750 mg tablet 750 mg PO Q24H diabetic foot ulcer 12/17/23 10 days #10 tabs Allergies Allergy/AdvReac Type Severity Reaction Status Date / Time clindamycin Allergy Mild HIVES Verified 07/15/23 10:55 Penicillins Allergy Mild Verified 07/15/23 10:55 sertraline AdvReac Mild Nausea Verified 07/15/23 10:55 gabapentin AdvReac ANKLE EDEMA Verified 07/15/23 10:55 General Stated Complaint: Cellulitis MONIKA: 3 Review of Systems Constitutional Constitutional: Reports as per HPI and Denies headache(s) ENT Ears, Nose, Mouth, and Throat: Denies headache(s) Cardiovascular Cardiovascular: Reports as per HPI and Denies dyspnea Respiratory Respiratory: Reports as per HPI, Denies chest congestion, Denies cough, Denies pain on inspiration, Denies pain with cough and Denies dyspnea Gastrointestinal Gastrointestinal: Reports as per HPI, Denies abdominal pain, Denies diarrhea, Denies nausea and Denies vomiting Musculoskeletal Musculoskeletal: Reports as per HPI and Denies back pain Integumentary/Breasts Skin/Breast: Reports as per HPI Neurologic Neurologic: Reports as per HPI and Denies headache(s) Exam Const General: cooperative, not healthy appearing, comfortable, no acute distress, well developed and ill appearing acutely and chronically Nutritional Appearance: average body habitus and well nourished Orientation: alert, awake and oriented x3 Resp Effort & Inspection: normal respiratory effort, able to speak in complete sentences and no respiratory distress Auscultation: wheezes scattered wheezes Cardio Rate: regular rate Rhythm: regular rhythm Heart Sounds: S1 normal and S2 normal Skin Wounds: wounds noted (left heel) Neuro General: patient alert, patient awake and patient oriented x3 Cognition: normal cognition Speech: speech normal Extrem General: normal to inspection, capillary refill normal and edema Laterality: left Ankle/foot/toe images: 2 1. Chronic appearing wound over the calcaneus. Tissue appears leathery and necrotic. Around the edges of this is a luna purulent discharge. The skin tissue does lift up some, no palpable crepitus. Erythema surrounds this, very malodorous. Erythema wraps over to the dorsal aspect of the wound. Medially, the skin appears dusky. Intact capillary refill. Sensation is largely intact. Course Vital Signs Vital signs: Vital Signs Temperature 37.6 C 12/19/23 09:45 Pulse 76 12/19/23 09:45 Respiratory Rate 17 12/19/23 09:45 Blood Pressure 151/82 H 12/19/23 09:45 Temperature 37.6 C 12/19/23 09:45 Pulse 76 12/19/23 09:45 Respiratory Rate 17 12/19/23 09:45 Blood Pressure 151/82 H 12/19/23 09:45 Blood Pressure Position Sitting 12/19/23 09:45 Oxygen Delivery Method Room Air 12/19/23 09:45 Oxygen Flow Rate 0 12/19/23 09:45 Pain Level 8 12/19/23 09:45 Medical Decision Making Patient is a pleasant 58-year-old male, brought in by his , with chief complaint of fevers/chills, increased pain in the left lower extremity. Has history of chronic diabetic foot wound to the left heel. Was seen here 2 days ago for the same. At that time, antibiotics were changed, patient has been taking them as prescribed. Despite taking these as prescribed, he began developing fevers yesterday and has had them for the past 24 hours. He also has had increasing pain that is now spreading up the leg. Has been using oxycodone which is not assisting with his discomfort. He denies other symptoms. Was also diagnosed with pneumonia but he denies any cough or shortness of breath. No chest pain. Patient is a dialysis patient, dialyzed Wednesday, Wednesday, Wednesday. Did receive dialysis on Wednesday. Reviewed chart, seen here 2 days ago. Patient was on amoxicillin for chonric foot wound. Was transitioned to Cipro. They had discussed admission at this time with elevated procalcitonin and ESR/CRP. He will need admission elsewhere as he needs dialysis. Hoewver, patient wanted to try treatment at [facility]. Was diagnosed with pneumonia, possible osteomyelitis. Reviewed micro, no growth on blood cultures >24hrs. On exam, patient is afebrile. He appears very uncomfortable clutching the left leg and having what appears to be muscle spasms frequently. He is very malodorous chronic appearing wound to the left heel that has a luna discharge coming from it. This will be sent for culture. He also has erythema that is now wrapping over to the top of his foot. I cannot appreciate any gas formation or crepitus. However, patient certainly having pain out of proportion and necrotizing pathology is on my differential, no forward with imaging. Patient was concerned for osteomyelitis in the past, certainly concern for this still. Also concern for bacteremia. Hemodynamically stable, concerned he is moving towrad sepsis with his rigors, spasms, fevers at home. Will treat as such with borad spectrum abx. Will give for pseudomonas. Vanco, gentamycin. As he had Cipro around 12 hours ago, will hold off on quinolone dosing at this time. Will give Morphine for pain. I reviewed the imaging, no gas in the subcu tissues, this does appear to be deeper than I would expect with the more superficial wound. Concern for potential necrotizing fasciitis. Patient is allergic to clindamycin. Is already been given vancomycin and gentamicin. Again, patient has been on ciprofloxacin. Will hold off and discuss further with general surgery regarding further antibiotics. Pain is more well-controlled, did well with Fentanyl, morphine uncesseful. Labs reviewed. Patient has a white count of 21, this is up from 17 2 days ago. Hemoglobin is also dropping from 8.2-7.9. Lactate is within normal limits. Sodium is low at 128, he has been low in the past. His potassium is high at 5.8, will begin calcium and give insulin. As his glucose is 426, will not replace any glucose, just give subcu insulin. His creatinine is 7.4 which is not surprising given his stated being on dialysis. His ESR is elevated at 35, this is actually downtrending from 45 2 days ago. His CRP however is elevated from 15-20. Pro-Jona 1.5, up from 1.3. Have requested consult with [facility] for transfer for management of necrotizing fasciitis and acute sepsis. Patient was initially afebrile, temp up to 38.1.. Called , ,they are waiting to see bed availability. called back, no bed availability. He was recently admitted at [facility], will request tranfer. Spoke with Dr. Carcamo with acute care surgery at [facility], he agrees to ED to ED transfer. He advises that gas is likely associated with DM wound, not necrotizing fasciitis. Advised patient likely needs amputation. Accepts in transfer, will arrange for transportation. Gave report to Dr. Marina int ED, she also agrees with this plan. In total, patient received Vanco, gentamycin, calcium, insulin, morphine, fentanyl, APAP. Temp normal at this time. He has dropped his O2 when sleeping, reprots that this is typical. given NC O2 as he is sleeping. Patient transferred to [facility] ED via EMS, hemodynamically stable. Quality:SDOH Health Related Social Needs: 2 No Data to Display PFSH All Active Problems (Updated 12/19/23 @ 14:29 by SPENCER Fleming) Acute hyperkalemia (Acute) Sepsis (Acute) Leukocytosis (Acute) Necrotizing soft tissue infection (Acute) Anemia (Chronic) Diabetic foot ulcer (Acute) Foot drop, bilateral (Acute) Weakness of both legs (Acute) Hip dysplasia (Acute) Patellofemoral disorders, left knee (Acute) Patellofemoral disorders, right knee (Acute) Internal derangement of right knee (Acute) Internal derangement of left knee (Acute) Left leg pain (Acute) Right leg pain (Acute) Olecranon bursitis, right elbow (Acute) Rectal bleeding (Acute) CKD (chronic kidney disease) (Chronic) STAGE 5 Peripheral neuropathy (Chronic) Hypertension (Chronic) Diabetes mellitus (Chronic) DVT prophylaxis (Acute) Sciatica (Acute) Medical History Dialysis patient AV fistula left arm Tubular adenoma of colon (2016) TIA (transient ischemic attack) Tobacco dependence Hyperlipidemia Anxiety and depression Degenerative joint disease LUMBAR SPINE Exertional shortness of breath Bilateral leg edema Lipoma GERD (gastroesophageal reflux disease) Chronic back pain Retinopathy Blood in stool Surgical History Colonoscopy - MAC (10/08/16) Cholecystectomy Family History Father Colon cancer Social History Smoking/Tobacco Use Status: Current every day Tobacco Type: cigarettes Smoking risk assessment performed?: Yes Alcohol Intake: never Drug use: Daily Substance use type: marijuana Current gender identity: male Do you feel safe at home: Yes Do you feel safe in your relationship?: Yes
--- NOTE | 2023-12-19 10:00 | DI.CT_ITS ---
Exam(s) CT LOWER EXTREMITY LT WO EXAM: CT LOWER EXTREMITY LT WO CLINICAL HISTORY: chronic wound heal. TECHNIQUE: Imaging Protocol: Axial computed tomography images with coronal and sagittal reformatted images were created and reviewed. CONTRAST MATERIAL: Intravenous: None COMPARISON: CT RIGHT LOWER EXTREM WO CONTRAST from 07/30/2017 CR XR FOOT LT COMPLETE from 12/17/2023 FINDINGS: Soft tissues: There is a prominent heel pad region ulcer. There is gas in the subcutaneous tissues. Vascular calcification noted. Also soft tissue swelling over the dorsal aspect of the foot. No oth er areas of skin ulceration. Osseous: No evidence of acute fractures. Is noted that the gas in the soft tissues does extend deep to yes. However, there is no CT evidence of osteomyelitis in the calcaneus nor elsewhere in the foot . IMPRESSION: Deep heel pad ulcer with significant air-gas in the deep subcutaneous soft tissues at this level. No CT evidence of osteomyelitis. No fractures evident. RADIATION DOSE DELIVERED: 303.66mGy.cm Total DLP DATA REPOSITORY: All CT scans at this facility are submitted to the National Radiology Data Registry (NRDR) Dose Index Registry (DIR) with the [employer] (ACR). RADIATION OPTIMIZATION: All CT scans at this facility use at least one of these dose optimization te chniques: automated exposure control; mA and/or kV adjustment per patient size (includes targeted exa ms where dose is matched to clinical indication); or iterative reconstruction.
[2023-12-19] MEDS: MORPHine 4 MG/ML SYR IVP (10:20)
[2023-12-19] MEDS: VANCOMYCIN/WATER (PEG) 1.5 GM/300 ML BAG IV (10:30)
--- NOTE | 2023-12-19 10:30 | RT.EKG_ITS ---
APPROVED REPORT Exam: Resting ECG Reason for Exam: meds, checking QT Patient Location: E HR:73 bpm ECG Measurements Heart Rate 73 AXIS VT 132 P 40 QRSd 84 QRS 39 QT 366 T 56 QTc 405 Conclusion Sinus rhythm 73 normal P axis no stemi
[2023-12-19 10:47] LABS: Lactate 0.8 mmol/L (0.6-1.4)
[2023-12-19 10:50] LABS: Abs Immature Grans 0.12 10^3/uL (0.0-0.06); Absolute Lymphocyte Count 1.25 10^3/uL (1.2-3.4); Absolute Monocyte Count 1.85 10^3/uL (0.1-0.8); Absolute Neutrophil Count 17.75 10^3/uL (1.2-6.7); Basophils % 0.2; Eosinophils % 1.1; HCT 25.3 % (40.0-50.0); HGB 7.9 g/dL (13.5-17.5); Immature Grans % 0.6; Lymphocytes % 5.9; MCH 28.8 pg (27.0-33.0); MCHC 31.2 % (32.0-36.0); MCV 92 fL (80-95); MPV 11.7 fL (8.0-11.0); Monocytes % 8.7; Neutrophils % 83.5; Platelet Count 309 10^3/uL (130-400); RBC 2.74 10^6/uL (4.36-5.78); RDW 12.8 % (11.8-14.1); RDW-SD 43.7 fL; WBC 21.26 10^3/uL (4.4-10.8)
[2023-12-19 10:52] LABS: ESR 35 mm/hr (0-20)
[2023-12-19 10:56] LABS: Absolute Basophil Count 0.04 10^3/uL (0.0-0.2); Absolute Eosinophil Count 0.23 10^3/uL (0.0-0.7)
[2023-12-19 10:59] LABS: INR 1.1 (0.9-1.1); Prothrombin Time 10.8 sec (9.1-11.1)
[2023-12-19 11:03] LABS: Diff Comment Diff Reviewed; RBC Morphology Normal
[2023-12-19] MEDS: fentaNYL 100 MCG/2 ML VIAL 50 MCG IVP (11:04)
[2023-12-19] MEDS: Ondansetron 4 MG/2 ML VIAL IVP (11:04)
[2023-12-19 11:05] LABS: ALT 17 U/L (16-63); AST 7 U/L (15-37); Albumin 1.9 g/dL (3.4-5.0); Alkaline Phosphatase 115 U/L (46-116); Anion Gap 5.4 mmol/L (3-11); BUN 44 mg/dL (7-18); Bilirubin, Total 0.3 mg/dL (0.2-1.0); C-Reactive Protein 20.55 mg/dL (<or=0.5); CO2 29.6 mmol/L (21.0-32.0); Calcium 9.4 mg/dL (8.5-10.1); Chloride 93 mmol/L (98-107); Estimated GFR 7.95 (mL/min/1.73m2); Glucose 426 mg/dL (74-106); Potassium 5.8 mmol/L (3.5-5.1); Sodium 128 mmol/L (136-145); Total Protein 6.7 g/dL (6.4-8.2)
[2023-12-19] MEDS: GENTAMICIN 180 MG in Normal Saline 100 ML 200 MG IVPB (11:06)
[2023-12-19 11:09] LABS: CREATININE 7.4 mg/dL (0.70-1.30)
--- NOTE | 2023-12-19 11:21 | DI.VRAD_ITS ---
PROCEDURE INFORMATION: Exam: CT Left Lower Extremity Without Contrast, Foot Exam date and time: 12/19/2023 10:49 AM Age: 58 years old Clinical indication: Other: Chronic wound heal TECHNIQUE: Imaging protocol: CT of the left lower extremity without contrast was performed. Exam focused on the foot. Radiation optimization: All CT scans at this facility use at least one of these dose optimization techniques: automated exposure control; mA and/or kV adjustment per patient size (includes targeted exams where dose is matched to clinical indication); or iterative reconstruction. COMPARISON: CR XR FOOT LT COMPLETE 12/17/2023 3:29 PM FINDINGS: Bones/joints: No cortical erosions to suggest osteomyelitis. There is a tiny inferior calcaneal spur. There is mild degenerative disease of the 1st tarsometatarsal joint. Soft tissues: There is diffuse subcutaneous fat stranding and skin thickening of the distal leg and foot. There is a skin ulcer at the heel of the foot with subcutaneous emphysema. There is an Achilles enthesophyte. Vasculature: There are vascular calcifications. Other findings: No collections are seen. IMPRESSION: 1. Heel ulcer. No CT changes of osteomyelitis. No collections. 2. Findings suggestive of cellulitis of distal leg and foot. Dictated and Authenticated by: Reynaldo López MD. Ordering:NICOLE Briscoe MD
[2023-12-19 11:28] LABS: Procalcitonin 1.5 ng/mL
--- NOTE | 2023-12-19 11:37 | W.EDPROG ---
Date of service: 12/19/23 Time of Service: 11:38 Medical Decision Making Patient evaluated in conjunction with the PA secondary to the medical complexity. A [id number] evaluation was provided by myself. The patient has a large left plantar foot wound. Workup is concerning for a necrotizing infection of his foot. Given his dialysis needs, diabetes and progressively worsening foot infection that is failed outpatient treatment, patient has been accepted for transfer and evaluation at [facility]. Quality:[facility] Health Related Social Needs: No Data to Display Discharge Plan Disposition Patient Disposition: Transfer-Acute Inpatient Care Specific Acute Inpt Facility: [facility] Condition: Serious Discharge Details Clinical Impression: Anemia, Necrotizing soft tissue infection, Leukocytosis, Sepsis, Acute hyperkalemia Primary Care Provider: Candace Maurice ED Provider: Rachna Santoro Home Meds and New Rx's Prescriptions: No Action calcium carbonate 500 mg calcium (1,250 mg) tablet,chewable 500 mg PO TID albuterol sulfate [ProAir HFA] 90 mcg/actuation HFA aerosol inhaler 1 puff IH Q6H PRN multivitamin tablet 1 tab PO DAILY insulin lispro [Humalog KwikPen Insulin] 100 unit/mL insulin pen 5 unit SC PRN Patient Comments: sliding scale sevelamer carbonate 800 mg tablet 800 mg PO BID nortriptyline 25 mg capsule 50 mg PO QHS (DME) Dynamic AFO See Rx Instructions .ROUTE .MEDSUPPLY Qty: 2 0RF Rx Instructions: Please measure and fit for bilateral dynamic ankle foot orthosis for bilateral foot drop and neuropathy (DME) BD Insulin Syringe 1 EACH syringe 1 ea Sub-Q TID Rx Instructions: DX:250.B/D INSULIN ULTRA-FINE 30G X 0.3 (DME) pen needle, diabetic 1 EACH needle 1 ea Sub-Q AC Qty: 180 Rx Instructions: DX:250. HUMALOG PEN NEEDLES (DME) blood-glucose meter [FreeStyle Lite Meter] 1 EACH kit 1 ea Miscellaneous TID Qty: 1 Patient Comments: pt states he checks his Blood sugar about evrey few days. 10/16/13 Rx Instructions: dx: 250 on insulin per insurance instead of Accu check (DME) lancets 1 EACH misc 1 ea Intradermal TID Qty: 300 Rx Instructions: DX:250. 01 on insulin Freestyle Lancets TEST STRIPS 1 EACH strip 1 ea Miscellaneous TID Qty: 270 4RF Rx Instructions: DX:250.01 on insulin Freestyle Lite test strips (per insurance) mini Levemir FlexTouch U100 Insulin 100 unit/mL (3 mL) insulin pen 65 unit subcut HS carvedilol 12.5 mg tablet 12.5 mg PO BID Rx Instructions: must administer with a meal/food famotidine 40 mg tablet 40 mg PO DAILY furosemide 20 mg tablet 20 mg PO DAILY Hold Instructions: Pt Stopped/Never Started Patient Comments: pt unsure of dose atorvastatin 40 mg tablet 40 mg PO QHS hydrochlorothiazide 25 mg tablet 25 mg PO BID pregabalin 100 mg capsule 100 mg PO BID aspirin 81 mg Tablet,Chewable 81 mg PO DAILY amlodipine 10 mg Tablet 10 mg PO DAILY amoxicillin 500 mg capsule 500 mg PO DAILY oxycodone-acetaminophen 5-325 mg tablet 1 tab PO BID Patient Comments: TAKE ONE TABLET BY MOUTH TWICE A DAY NEEDED FOR PAIN, MAXIMUM DAILY DOSE = 2 TABLETS Santyl 250 unit/gram ointment 1 applic TOPICAL DAILY PRN levofloxacin 750 mg tablet 750 mg PO Q24H 10 Days Qty: 10 0RF
[2023-12-19] MEDS: Insulin REGULAR-Human 100 UNITS/ML UNIT 10 UNITS SC (12:27)
[2023-12-19] MEDS: Calcium Gluconate 4.65 MEQ/10 ML VIAL 4.65 MG IVP (13:21)
--- NOTE | 2023-12-22 10:44 | NUR.NOTE ---
Accessed Pt chart to see if Pt was prescribed antibiotics. He was not he was transferred to [facility]
--- NOTE | 2023-12-22 10:47 | NUR.NOTE ---
Gave speciman document to Zandra Quintanilla and she wanted me to fax to [facility]. Document was faxed
== END 2023-12-19 14:24 | disposition short-term general hospital (02) ==
PROVIDERS: Emergency Provider Physician Assistant; PCP Nurse Practitioner Family
DX: D64.9 Anemia, unspecified (principal); E11.621 Type 2 diabetes mellitus with foot ulcer; L97.428 Non-pressure chronic ulcer of left heel and midfoot with other specified severity; D72.829 Elevated white blood cell count, unspecified; A41.9 Sepsis, unspecified organism; E87.5 Hyperkalemia; I12.0 Hypertensive chronic kidney disease with stage 5 chronic kidney disease or end stage renal disease; E11.22 Type 2 diabetes mellitus with diabetic chronic kidney disease; N18.6 End stage renal disease; E78.5 Hyperlipidemia, unspecified; Z86.73 Personal history of transient ischemic attack (TIA), and cerebral infarction without residual deficits; Z79.4 Long term (current) use of insulin; Z79.82 Long term (current) use of aspirin; Z99.2 Dependence on renal dialysis; F17.210 Nicotine dependence, cigarettes, uncomplicated
CPT/HCPCS: 00123; 80053; 82962; 84145; 85652; 87040; 93005; 96365; 96367; 96375; 99285; 73700; 83605; 85025; 85610; 86140; 87070; 87205; 93010; J0131; J0612; J1580; J1815; J2270; J2405; J3010; J3372

== ENCOUNTER 2024-02-17 12:15 | Emergency (ER) | payer MEDICARE, SELFPAY ==
[2024-02-17] VITALS (21 sets, daily range): BP systolic 158–202; BP diastolic 57–107; PULSE 66–74; RESP 11–23; TEMP 37.1–37.6; O2SAT 91–99
--- NOTE | 2024-02-17 12:45 | DI.CT_ITS ---
Exam(s) CT LOWER EXTREMITY LT WO EXAM: CT LOWER EXTREMITY LT WO CLINICAL HISTORY: infection, concern for osteo, recent debridement. TECHNIQUE: Imaging Protocol: Axial computed tomography images with coronal and sagittal reformatted images were created and reviewed. CONTRAST MATERIAL: Intravenous: None COMPARISON: CT CT LOWER EXTREMITY LT WO from 12/19/2023 FINDINGS: Compared to the CT scan of 12/19/2023 there appears to have been interval debridement of heel pad sof t tissues down to the bone level of the inferior calcaneus at and medial of center. There is abundan t gas in the plantar fat over the lateral aspect and more distally along the plantar aspect to approx imately the anterior level of the calcaneus. There is no radiopaque foreign body. There does not appear to be erosion of the cortex in the calcaneus nor elsewhere in the foot Vascular calcifications again noted. There is abundant subcutaneous edema in the foot and ankle region. There does not appear to be a def ined the abscess realized limitations of a noninfused study. IMPRESSION: Interval deep debridement at the mid-medial aspect of the heel pad. There is still significant gas w ithin the soft tissues at this level over the lateral heel pad and extending distally to the mid-dist al aspect of the calcaneus level. There is no evidence of bone destruction on CT scan to suggest osteomyelitis. If clinically indicated further study with MRI can be performed for added sensitivity. If this patie nt is not able to receive IV contrast then noninfused MRI study would still be for detecting osteomye litis, particularly if there is confluent hypointense intraosseous signal on non infused T1 weighted images. RADIATION DOSE DELIVERED: 412.52mGy.cm Total DLP DATA REPOSITORY: All CT scans at this facility are submitted to the National Radiology Data Registry (NRDR) Dose Index Registry (DIR) with the [employer] (ACR). RADIATION OPTIMIZATION: All CT scans at this facility use at least one of these dose optimization te chniques: automated exposure control; mA and/or kV adjustment per patient size (includes targeted exa ms where dose is matched to clinical indication); or iterative reconstruction.
[2024-02-17 13:01] LABS: Lactate 0.8 mmol/L (0.6-1.4)
[2024-02-17 13:02] LABS: HCT 22.6 % (40.0-50.0); MCV 90 fL (80-95); MPV 11.1 fL (8.0-11.0); Platelet Count 403 10^3/uL (130-400); RDW 13.8 % (11.8-14.1); WBC 15.73 10^3/uL (4.4-10.8)
--- NOTE | 2024-02-17 13:10 | W.ED.GENAD ---
Discharge Plan Disposition Patient Disposition: Against Medical Advice Condition: Serious Discharge Details Clinical Impression: Diabetic foot infection, Diabetes mellitus, Hypertension, Peripheral neuropathy, CKD (chronic kidney disease), Fever, Anemia Primary Care Provider: Ken Greer ED Provider: Rachna Santoro Home Meds and New Rx's Prescriptions: Continued calcium carbonate 500 mg calcium (1,250 mg) tablet,chewable 500 mg PO TID albuterol sulfate [ProAir HFA] 90 mcg/actuation HFA aerosol inhaler 1 puff IH Q6H PRN multivitamin tablet 1 tab PO DAILY insulin lispro [Humalog KwikPen Insulin] 100 unit/mL insulin pen 5 unit SC PRN Patient Comments: sliding scale sevelamer carbonate 800 mg tablet 800 mg PO BID nortriptyline 25 mg capsule 50 mg PO QHS (DME) Dynamic AFO See Rx Instructions .ROUTE .MEDSUPPLY Qty: 2 0RF Rx Instructions: Please measure and fit for bilateral dynamic ankle foot orthosis for bilateral foot drop and neuropathy (DME) BD Insulin Syringe 1 EACH syringe 1 ea Sub-Q TID Rx Instructions: DX:250.B/D INSULIN ULTRA-FINE 30G X 0.3 (DME) pen needle, diabetic 1 EACH needle 1 ea Sub-Q AC Qty: 180 Rx Instructions: DX:250. HUMALOG PEN NEEDLES (DME) blood-glucose meter [FreeStyle Lite Meter] 1 EACH kit 1 ea Miscellaneous TID Qty: 1 Patient Comments: pt states he checks his Blood sugar about evrey few days. 10/16/13 Rx Instructions: dx: 250 on insulin per insurance instead of Accu check (DME) lancets 1 EACH misc 1 ea Intradermal TID Qty: 300 Rx Instructions: DX:250. 01 on insulin Freestyle Lancets TEST STRIPS 1 EACH strip 1 ea Miscellaneous TID Qty: 270 4RF Rx Instructions: DX:250.01 on insulin Freestyle Lite test strips (per insurance) mini Levemir FlexTouch U100 Insulin 100 unit/mL (3 mL) insulin pen 65 unit subcut HS carvedilol 12.5 mg tablet 12.5 mg PO BID Rx Instructions: must administer with a meal/food famotidine 40 mg tablet 40 mg PO DAILY furosemide 20 mg tablet 20 mg PO DAILY Hold Instructions: Pt Stopped/Never Started Patient Comments: pt unsure of dose atorvastatin 40 mg tablet 40 mg PO QHS hydrochlorothiazide 25 mg tablet 25 mg PO BID pregabalin 100 mg capsule 100 mg PO BID aspirin 81 mg Tablet,Chewable 81 mg PO DAILY amlodipine 10 mg Tablet 10 mg PO DAILY diltiazem HCl 120 mg capsule,extended release 24hr 120 mg PO DAILY oxycodone 5 mg tablet 5 mg PO TID PRN Patient Comments: TAKE ONE TABLET BY MOUTH THREE TIMES A DAY NEEDED FOR SEVERE PAIN. MAXIMUM DAILY DOSE =10MG Eliquis 5 mg tablet 5 mg PO BID Discharge Instructions Instructions: Osteomyelitis (ED), Diabetic Foot Ulcers (ED) Additional Instructions: As we discussed, I am very concerned that your infection is getting worse and that you will likely need recurrent surgery. At least, you will need IV antibiotics. You have received Rocephin and vancomycin here today. You are choosing to leave AGAINST MEDICAL ADVICE. But as we discussed, your plan is to go to appropriate hospital today, at your earliest convenience. As we discussed, I am concerned that waiting or delaying your care increases your risk for becoming septic, increased risk for amputation and increased risk of life-threatening infection. Please continue with wound care as previously advised and seek medical care as soon as possible, you need to have more antibiotics within the next 24 hours. Referrals: Ken Greer [Primary Care Provider] - [facility] General Date/Time Provider Initiated Documentation: 02/17/24 12:15. Limitations to Documentation: no limitations. Information obtained by: patient, family (), RN notes reviewed and old records reviewed (have requested recent d/c info from [facility]). History of Present Illness 58 year old M presents to the emergency department with the chief complaint of infected left foot, described as moderate and similar to prior episodes, and is localized to the left and lower extremity. Patient started experiencing this day(s) (started having redness yesterday around the debrided area) and it has been constant. No relieving factors improve symptom(s), No exacerbating factors reported . Patient notes fever/chills. Patient did receive the following treatments prior to arrival, none Related Data Home Medications Medication Instructions Recorded Confirmed insulin syringe-needle U-100 1 mL 03/21/13 02/17/24 26 x 1/2 (BD Insulin Syringe) blood-glucose meter (FreeStyle ##1 03/24/13 02/17/24 Lite Meter kit) pen needle, diabetic 31 gauge x #180 units 03/24/13 02/17/2403/09 lancets 28 gauge #300 ea 08/08/13 02/17/24 amlodipine 10 mg tablet 10 mg PO DAILY 08/05/18 02/17/24 aspirin 81 mg chewable tablet 81 mg PO DAILY 08/05/18 02/17/24 albuterol sulfate 90 mcg/actuation 1 puff inhalation Q6H PRN 04/20/19 02/17/24 aerosol inhaler (ProAir HFA) calcium carbonate 500 mg PO TID 04/20/19 02/17/24 insulin lispro 100 unit/mL 5 unit subcut PRN 04/20/19 02/17/24 subcutaneous pen (Humalog KwikPen (U-100) Insulin) multivitamin 1 tab PO DAILY 04/20/19 02/17/24 sevelamer carbonate 800 mg tablet 800 mg PO BID 04/20/19 02/17/24 atorvastatin 40 mg tablet 40 mg PO QHS 08/18/22 02/17/24 carvedilol 12.5 mg tablet 12.5 mg PO BID 08/18/22 02/17/24 famotidine 40 mg tablet 40 mg PO DAILY 08/18/22 02/17/24 furosemide 20 mg tablet 20 mg PO DAILY 08/18/22 02/17/24 hydrochlorothiazide 25 mg tablet 25 mg PO BID 08/18/22 02/17/24 insulin detemir U-100 100 unit/mL 65 unit subcut HS 08/18/22 02/17/24 (3 mL) subcutaneous pen (Levemir FlexTouch U-100 Insulin) pregabalin 100 mg capsule 100 mg PO BID 08/18/22 02/17/24 Dynamic AFO #2 ea 11/26/22 02/17/24 nortriptyline 25 mg capsule 50 mg PO QHS 11/26/22 02/17/24 apixaban 5 mg tablet (Eliquis) 5 mg PO BID 02/17/24 02/17/24 diltiazem HCl 120 mg 120 mg PO DAILY 02/17/24 02/17/24 capsule,extended release 24 hr oxycodone 5 mg tablet 5 mg PO TID PRN 02/17/24 02/17/24 Previous Rx's Medication Instructions Recorded Dynamic AFO #2 ea 11/26/22 Allergies Allergy/AdvReac Type Severity Reaction Status Date / Time clindamycin Allergy Mild HIVES Verified 02/17/24 12:33 sertraline AdvReac Mild Nausea Verified 02/17/24 12:33 gabapentin AdvReac ANKLE EDEMA Verified 02/17/24 12:33 General Stated Complaint: Cellulitis MONIKA: 2 Review of Systems Constitutional Constitutional: Reports as per HPI, Denies chills, Denies headache(s) and Denies poor appetite ENT Ears, Nose, Mouth, and Throat: Denies headache(s) Cardiovascular Cardiovascular: Reports as per HPI and Denies dyspnea Respiratory Respiratory: Reports as per HPI, Denies chest congestion, Denies cough, Denies pain with cough, Denies dyspnea and Denies wheezing Gastrointestinal Gastrointestinal: Reports as per HPI, Denies abdominal pain, Denies diarrhea, Denies nausea and Denies vomiting Musculoskeletal Musculoskeletal: Reports as per HPI Integumentary/Breasts Skin/Breast: Reports as per HPI and Denies rash Neurologic Neurologic: Reports as per HPI and Denies headache(s) Allergic/Immunologic Allergic/Immunologic: Denies wheezing Exam Const General: cooperative, not healthy appearing, comfortable, no acute distress, well developed and ill appearing chronically Nutritional Appearance: average body habitus and well nourished Orientation: alert, awake and oriented x3 Resp Effort & Inspection: normal respiratory effort, able to speak in complete sentences and no respiratory distress Auscultation: crackles and wheezes Cardio Rate: regular rate Rhythm: regular rhythm Heart Sounds: S1 normal and S2 normal Skin General skin exam: erythema, eschar and fluctuance Wounds: wounds noted (bilateral heals) Neuro General: patient alert, patient awake and patient oriented x3 Cognition: normal cognition Speech: speech normal Extrem Ankle/foot/toe images: 1. blackened eschar, malodorous, surrounding erythyema. Dorsal foot is pink, intact capillary refill. Erythema extends into the ankle 2. Chronic appearing wound without evidence of acute infection. Course Vital Signs Vital signs: Vital Signs Temperature 37.6 C H 02/17/24 12:17 Pulse 74 02/17/24 12:17 Respiratory Rate 19 02/17/24 12:17 Blood Pressure 176/57 H 02/17/24 12:17 Pulse Oximetry 91 L 02/17/24 12:17 Temperature 37.6 C H 02/17/24 12:40 Temperature Source Oral 02/17/24 12:40 Pulse 70 02/17/24 12:47 Pulse 72 02/17/24 13:00 Respiratory Rate 19 02/17/24 13:00 Respiratory Effort Normal 02/17/24 12:40 Blood Pressure 185/67 H 02/17/24 12:47 Blood Pressure Mean 112 02/17/24 12:47 Blood Pressure Position Sitting 02/17/24 12:40 Pulse Oximetry 95 02/17/24 13:00 Oxygen Delivery Method Room Air 02/17/24 12:40 Oxygen Flow Rate 0 02/17/24 12:40 Pain Level 5 02/17/24 12:40 Comment pt has neuropathy, L heel wound covered in black eschar draining brown fluid, malodorous red periwound, hot to touch. 02/17/24 12:40 Lab/Test Results Lab/Test Results: 02/17/24 13:03 Blood Blood Culture - Pending 02/17/24 12:50 Foot - Left Wound Culture - Pending 02/17/24 12:50 Foot - Left Gram Stain - Pending 02/17/24 12:50 Blood Blood Culture - Pending Laboratory Tests Range/Units 02/17/24 02/17/24 12:50 12:52 VBG Lactate (0.6-1.4) mmol/L 0.8 COVID-19 Source Nasal/Nares Medical Decision Making Patient is a pleasant 58-year-old male, brought in by his , with chief complaint of infected left foot. Patient underwent debridement in [facility] in November of this year. Has had home health caring for his wounds. They began noting increased redness yesterday. Advised him to come in for further evaluation today. He has had fevers at home with a Tmax of 101 ?F. Patient has significant past medical history including type 2 diabetes with nephropathy and neuropathy, ESRD on dialysis, hypertension, hyperlipidemia, PAD, TIA, tobacco use. Patient was last dialyzed yesterday. With his neuropathy, he denies any significant pain but states that occasionally he can have a shooting pain. Patient continues to smoke. On exam, patient appears chronically ill. His eyes are slightly jaundiced which patient reports is baseline. Temperature 37.6. He is hypertensive. Exam of the left lower extremity significant for a large black and eschar region over the left heel, bone is visible. Surrounding area is erythematous. No crepitus. Area under the eschar does feel fluctuant. He has 2+ pitting edema. No calf pain. He has some scattered wheezing and crackles on pulmonary exam. Concern for fluid overload although patient denies any shortness of breath. Revewed d/c note from [facility]. At the time was admitted at [facility], they had him on ertapenem and vancomycin patient was evaluated by vascular surgery, ABIs showed no large vessel arterial insufficiency so no vascular intervention warranted at that time. Orthopedics debrided the eschar, continued with twice daily dressing changes. While admitted, patient began having atrial fibrillation with RVR, currently on diltiazem. Anticoagulated on apixaban. While at [facility], they completed an echo showing an EF of 50 to 55% with no regional abnormalities. Concern for osteomyelitis. Based on his vascular status it [facility], concern the patient may need a amputation. He reports that when he was seen last by his it training specialist at [facility], this is what they advised. He is waiting for a second opinion at [facility]. Patient would prefer continued care at [facility] if possible. I do not palpate any crepitus however, with his chronic comorbidities, considered potential necrotizing infection. Will repeat imaging. With his current fluid status, will hold off on any IV fluids but will give IV antibiotics. Will give Rocephin and vancomycin. Discussed the plan with the patient who is in agreement. He declines any nicotine supplementation at this time. Labs reviewed. Normal lactate. White count is 15.7. Hemoglobin 7.0, patient does have known history of anemia of chronic disease. Continues to downtrend. Last recorded 7.9 2 months ago. CMP significant for creatinine of 5.8, glucose 352. Negative for COVID. Cultures from blood and wound pending. CT reviewed by myself, concern for osteomyelitis. Sent images to [facility], patient will likely need to be transferred there. I do not know that the patient is on erythropoietin, will likely need to go on supplementation based on his anemia levels. Concerned that the patient will need to have further debridement, possible amputation. Concern patient may already be bacteremic, could develop sepsis. I discussed the laboratory findings as well as my concerns on the imaging with the patient and he would like to be discharged. He reports that he is not able to go to [facility] at this time but will go at his earliest convenience and have his drive him there. He is aware that in doing so, sitting AGAINST MEDICAL ADVICE. Risk of life and limb. He reports that he will go in expeditious manner but likely not until later tonight or possibly tomorrow. With his chronic kidney disease, I do not want to keep him on antibiotics inappropriately and have him take more than needed. As he reports he will go to [facility], will hold off on further dosing at this time. Again, I advised the patient that him not receiving the care he needs could increase his risk for amputation and potentially be life-threatening. Patient continues to request discharge, demonstrates capacity for decision-making. Will have the patient signed out AMA. He is aware he may return at any time. He is missing his antibiotics and his will come and pick him up. Quality:SDOH Health Related Social Needs: No Data to Display PFSH All Active Problems (Updated 02/17/24 @ 14:54 by SPENCER Fleming) Anemia (Chronic) Fever (Acute) Diabetic foot infection (Acute) Foot drop, bilateral (Acute) Weakness of both legs (Acute) Hip dysplasia (Acute) Patellofemoral disorders, left knee (Acute) Patellofemoral disorders, right knee (Acute) Internal derangement of right knee (Acute) Internal derangement of left knee (Acute) Left leg pain (Acute) Right leg pain (Acute) Olecranon bursitis, right elbow (Acute) Rectal bleeding (Acute) CKD (chronic kidney disease) (Chronic) STAGE 5 Peripheral neuropathy (Chronic) Hypertension (Chronic) Diabetes mellitus (Chronic) DVT prophylaxis (Acute) Sciatica (Acute) Medical History Dialysis patient AV fistula left arm Tubular adenoma of colon (2016) TIA (transient ischemic attack) Tobacco dependence Hyperlipidemia Anxiety and depression Degenerative joint disease LUMBAR SPINE Exertional shortness of breath Bilateral leg edema Lipoma GERD (gastroesophageal reflux disease) Chronic back pain Retinopathy Blood in stool Surgical History Colonoscopy - [facility] (10/08/16) Cholecystectomy Family History Father Colon cancer Social History Smoking/Tobacco Use Status: Current every day Tobacco Type: cigarettes Smoking risk assessment performed?: Yes Alcohol Intake: never Drug use: Daily Substance use type: marijuana Current gender identity: male Do you feel safe at home: Yes Do you feel safe in your relationship?: Yes
[2024-02-17] MEDS: cefTRIAXone 2 GM/50 ML BAG IVPB (13:11)
[2024-02-17 13:18] LABS: ALT 18 U/L (16-63); AST 13 U/L (15-37); Albumin 1.9 g/dL (3.4-5.0); Alkaline Phosphatase 120 U/L (46-116); Anion Gap 9.9 mmol/L (3-11); BUN 36 mg/dL (7-18); Bilirubin, Total 0.3 mg/dL (0.2-1.0); CO2 28.1 mmol/L (21.0-32.0); Calcium 8.9 mg/dL (8.5-10.1); Chloride 97 mmol/L (98-107); Estimated GFR 10.65 (mL/min/1.73m2); Glucose 352 mg/dL (74-106); Potassium 4.3 mmol/L (3.5-5.1); Sodium 135 mmol/L (136-145); Total Protein 6.5 g/dL (6.4-8.2)
[2024-02-17 13:25] LABS: CREATININE 5.8 mg/dL (0.70-1.30)
[2024-02-17 13:37] LABS: Absolute Lymphocyte Count 2.04 10^3/uL (1.2-3.4); Absolute Neutrophil Count 12.58 10^3/uL (1.2-6.7); Procalcitonin 2.1 ng/mL
[2024-02-17 13:38] LABS: Absolute Eosinophil Count 0.16 10^3/uL (0.0-0.7); Absolute Monocyte Count 0.94 10^3/uL (0.1-0.8); Diff Comment Manual Differential
[2024-02-17 13:39] LABS: Hypochromasia 2+
[2024-02-17 13:43] LABS: COVID-19 PCR Negative (Negative)
[2024-02-17 13:53] LABS: Source Nasopharynx
[2024-02-17] MEDS: VANCOMYCIN/WATER (PEG) 1.5 GM/300 ML BAG IVPB (14:06)
--- NOTE | 2024-02-17 16:10 | NUR.NOTE ---
Referral faxed to [facility] Pod[facility] for Diabetic Foot Wounds with the request to be seen NATALY. Referral given to Care Management to try to set up an appointment with [facility] NATALY for Diabetic Foot Wounds.
--- NOTE | 2024-02-20 09:15 | NUR.NOTE ---
Accessed chart to look up whether or not on antibiotic for culture result. Nursing Note:
--- NOTE | 2024-02-20 09:28 | ED.FU.B_ITS ---
Date of service: 02/17/24 Follow Up Plan: Culture results received. The patient's chart was reviewed and his [facility] chart indicates that the patient is admitted there and the foot of concern has been amputated.
== END 2024-02-17 16:28 | disposition left against medical advice (07) ==
PROVIDERS: Emergency Provider Physician Assistant; PCP Family Medicine
DX: E11.22 Type 2 diabetes mellitus with diabetic chronic kidney disease (principal); I12.9 Hypertensive chronic kidney disease with stage 1 through stage 4 chronic kidney disease, or unspecified chronic kidney disease; E11.621 Type 2 diabetes mellitus with foot ulcer; N18.9 Chronic kidney disease, unspecified; E11.40 Type 2 diabetes mellitus with diabetic neuropathy, unspecified; I10 Essential (primary) hypertension; R50.9 Fever, unspecified; D64.9 Anemia, unspecified
CPT/HCPCS: 80053; 84145; 87040; 87635; 96365; 96366; 96368; 99284; 73700; 83605; 85025; 87070; 87205; J0696; J3372

== ENCOUNTER 2024-03-12 13:59 | Emergency (ER) | payer MEDICARE, SELFPAY ==
[2024-03-12] VITALS (101 sets, daily range): BP systolic 129–204; BP diastolic 43–140; PULSE 63–86; RESP 0–38; TEMP 36.1–38; O2SAT 88–98
--- NOTE | 2024-03-12 14:15 | DI.RAD_ITS ---
Exam(s) XR PORTABLE CHEST AP EXAM: XR PORTABLE CHEST AP CLINICAL HISTORY: fever. TECHNIQUE: 2D digital imaging was performed. COMPARISON: CR XR CHEST 2V PA LATERAL from 12/17/2023 FINDINGS: Single AP portable view. Heart size is upper normal. The mediastinum is not widened. There are extensive patchy infiltrates now evident throughout both lung marti. No pleural effusions . No pneumothorax. No fractures. IMPRESSION: Extensive bilateral patchy lung infiltrates. No obvious pleural effusions evident on this portable v iew. DATA REPOSITORY: RADIATION DOSE DELIVERED:
[2024-03-12] MEDS: ACETAMINOPHEN 1,000 MG/100 ML BTL 400 MG IVPB (14:40)
[2024-03-12 14:42] LABS: Lactate 1.8 mmol/L (0.6-1.4)
[2024-03-12 14:43] LABS: Abs Immature Grans 0.04 10^3/uL (0.0-0.06); Absolute Monocyte Count 0.99 10^3/uL (0.1-0.8); Absolute Neutrophil Count 9.57 10^3/uL (1.2-6.7); Basophils % 0.8 %; Eosinophils % 3.7 %; HCT 27.2 % (40.0-50.0); HGB 8.4 g/dL (13.5-17.5); Immature Grans % 0.3 %; Lymphocytes % 14.5 %; MCH 28.8 pg (27.0-33.0); MCHC 30.9 % (32.0-36.0); MCV 93 fL (80-95); MPV 10.6 fL (8.0-11.0); Monocytes % 7.6 %; Neutrophils % 73.1 %; Platelet Count 436 10^3/uL (130-400); RBC 2.92 10^6/uL (4.36-5.78); RDW 17.4 % (11.8-14.1); RDW-SD 60.2 fL; WBC 13.09 10^3/uL (4.4-10.8)
[2024-03-12] MEDS: Lactated Ringers 500 ML 1000 ML IV (14:45)
[2024-03-12] MEDS: VANCOMYCIN/WATER (PEG) 1.5 GM/300 ML BAG IV (14:45)
[2024-03-12] MEDS: CEFEPIME 1 GM in Normal Saline 50 ML IVPB (14:45)
[2024-03-12 14:48] LABS: pCO2 (Venous) 44 mmHg (41-51); pH (Venous) 7.38 (7.31-7.41)
[2024-03-12 14:49] LABS: BE (Venous) 0 mmol/L (-2-3); HCO3 (Venous) 26 mmol/L (23-28); O2 Sat (Venous) 87 %; TCO2 (Venous) 24 mmol/L (24-29); pO2 (Venous) 53 mmHg
--- NOTE | 2024-03-12 15:00 | DI.CT_ITS ---
Exam(s) CT CHEST WO EXAM: CT CHEST WO CLINICAL HISTORY: INFILTRATES. TECHNIQUE: Multi planar reconstructions were performed. CONTRAST MATERIAL: None COMPARISON: CR,XR XR PORTABLE CHEST AP from 03/12/2024 FINDINGS: CHEST: LUNGS: There are small non loculated bilateral pleural effusions, right larger than left. There are patchy bilateral infiltrates with combination of air bronchograms as well as [id number] infilt rates. No distinct mass evident in the lung marti. No findings in the trachea and mainstem bronchi. MEDIASTINUM: There is no obvious hilar nor mediastinal adenopathy. Visualized thyroid unremarkable. CARDIAC: Mild cardiomegaly. No pericardial effusion. Caliber thoracic aorta is normal.Blood density within the cardiac chambers is less than the myocardium and this may suggest anemia. VISUALIZED UPPER ABDOMEN: OSSEOUS: There are acute appearing displaced fractures of the left 8th and 9th ribs. OTHER: There is subcutaneous anasarca over both sides of the chest. IMPRESSION: 1. There are acute appearing displaced fractures of the left 8th and 9th ribs. No vertebral fracture s. No sternal fractures. 2. Bilateral infiltrates which are both confluent and ground-glass and there are small bilateral pleu ral effusions, right larger than left. Both infectious etiology and pulmonary edema are consideratio ns. Possible combination of both. 3. Anasarca also evident and appearance of the blood pool in the heart chambers which may reflect pre sence of anemia. RADIATION DOSE DELIVERED: 916.65mGy.cm Total DLP DATA REPOSITORY: All CT scans at this facility are submitted to the National Radiology Data Registry (NRDR) Dose Index Registry (DIR) with the [employer] (A[employer]). RADIATION OPTIMIZATION: All CT scans at this facility use at least one of these dose optimization te chniques: automated exposure control; mA and/or kV adjustment per patient size (includes targeted exa ms where dose is matched to clinical indication); or iterative reconstruction.
[2024-03-12 15:05] LABS: ALT 27 U/L (16-63); AST 12 U/L (15-37); Albumin 2.2 g/dL (3.4-5.0); Alkaline Phosphatase 180 U/L (46-116); Anion Gap 11.6 mmol/L (3-11); BUN 69 mg/dL (7-18); Bilirubin, Total 0.3 mg/dL (0.2-1.0); CO2 25.4 mmol/L (21.0-32.0); Calcium 8.7 mg/dL (8.5-10.1); Chloride 97 mmol/L (98-107); Potassium 5.6 mmol/L (3.5-5.1); Sodium 134 mmol/L (136-145); Total Protein 6.5 g/dL (6.4-8.2)
[2024-03-12 15:11] LABS: Absolute Eosinophil Count 0.48 10^3/uL (0.0-0.7); Diff Comment RBC Morph Reviewed; Hypochromasia 2+
[2024-03-12 15:12] LABS: Polychromasia Present
[2024-03-12 15:13] LABS: TSH 2.08 uIU/Ml (0.36-3.74)
[2024-03-12 15:26] LABS: Procalcitonin 0.8 ng/mL
[2024-03-12 15:30] LABS: Glucose 520 mg/dL (74-106)
--- NOTE | 2024-03-12 15:33 | DI.VRAD_ITS ---
PROCEDURE INFORMATION: Exam: XR Chest Exam date and time: 03/12/2024 2:48 PM Age: 58 years old Clinical indication: Fever TECHNIQUE: Imaging protocol: Radiologic exam of the chest. Views: 1 view. COMPARISON: CR XR CHEST 2V PA LATERAL 12/17/2023 3:23 PM FINDINGS: Lungs: Diffuse patchy airspace disease. Pleural spaces: Slight blunting of the right costophrenic angle. Heart/Mediastinum: Unremarkable. No cardiomegaly. Bones/joints: Displaced fracture deformities of the lateral 7th and 8th left ribs. Correlate with point tenderness. IMPRESSION: 1. Diffuse patchy airspace disease, may represent multifocal pneumonia, volume overload. Correlate with patient history and physical exam. 2. Small right pleural effusion. 3. Displaced left lateral 7th and 8th rib fractures. Correlate with point tenderness. CT of the chest can be obtained for further definitive characterization if there is clinical necessity. Dictated and Authenticated by: Prosper Enamorado MD. Ordering:BERTHA Sahni MD
--- NOTE | 2024-03-12 15:45 | RT.EKG_ITS ---
APPROVED REPORT Exam: Resting ECG Reason for Exam: esrd Patient Location: E HR:75 bpm ECG Measurements Heart Rate 75 AXIS KS 138 P 58 QRSd 96 QRS 2 QT 386 T 35 QTc 430 Conclusion Sinus rhythm 75 no stemi
[2024-03-12] MEDS: Insulin REGULAR-Human 100 UNITS/ML UNIT 10 UNITS IV (15:50)
--- NOTE | 2024-03-12 15:59 | DI.VRAD_ITS ---
PROCEDURE INFORMATION: Exam: CT Chest Without Contrast; Diagnostic Exam date and time: 03/12/2024 3:26 PM Age: 58 years old Clinical indication: Other: Infiltrates TECHNIQUE: Imaging protocol: Diagnostic computed tomography of the chest without contrast. 3D rendering (Not supervised by radiologist): MIP and/or 3D reconstructed images were created by the technologist. Radiation optimization: All CT scans at this facility use at least one of these dose optimization techniques: automated exposure control; mA and/or kV adjustment per patient size (includes targeted exams where dose is matched to clinical indication); or iterative reconstruction. COMPARISON: CR XR PORTABLE CHEST AP 03/12/2024 2:48 PM FINDINGS: Lungs: Diffuse reticulation of the mediastinum without pathologically enlarged lymph nodes. Predominantly ground-glass lower lobe patchy infiltrates bilaterally. Pleural spaces: Bilateral pleural effusions, [id number]. Heart: Blood pool attenuation is below that of the surrounding myocardium suggesting possible anemia. Coronary arteries: Scattered calcified atherosclerotic disease to include the coronary vasculature. Lymph nodes: No pathologically enlarged nodes. Vasculature: Unremarkable. No aortic aneurysm. Gallbladder and bile ducts: Status post cholecystectomy. Kidneys and ureters: Symmetric bilateral perinephric stranding. Bones/joints: Displaced rib fractures of lateral left 9th and 10th ribs with associated chest wall contusion. Old left anterolateral 10th rib fracture deformity at the costochondral junction. Soft tissues: Diffuse body wall edema. IMPRESSION: 1. Findings suggest 3rd spacing of fluid which is nonspecific correlate with congestive heart failure findings and symptoms. Superimposed multifocal pneumonia cannot be excluded by imaging. 2. Displaced lateral left 9th and 10th rib fractures with chest wall contusion. Correlate with trauma history. 3. Findings suggest possible anemia. Correlate with laboratory findings. Dictated and Authenticated by: Prosper Enamorado MD. Ordering:[facility] Robinson Sahni MD
--- NOTE | 2024-03-12 16:07 | ED.GENADUL_ITS ---
Discharge Plan Discharge Details Chief Complaint: GenMedical Primary Care Provider: Ken Greer ED Provider: Damon Bowers Home Meds and New Rx's Prescriptions: No Action calcium carbonate 500 mg calcium (1,250 mg) tablet,chewable 500 mg PO TID albuterol sulfate [ProAir HFA] 90 mcg/actuation HFA aerosol inhaler 1 puff IH Q6H PRN multivitamin tablet 1 tab PO DAILY insulin lispro [Humalog KwikPen Insulin] 100 unit/mL insulin pen 5 unit SC PRN Patient Comments: sliding scale sevelamer carbonate 800 mg tablet 800 mg PO BID nortriptyline 25 mg capsule 50 mg PO QHS (DME) Dynamic AFO See Rx Instructions .ROUTE .MEDSUPPLY Qty: 2 0RF Rx Instructions: Please measure and fit for bilateral dynamic ankle foot orthosis for bilateral foot drop and neuropathy (DME) BD Insulin Syringe 1 EACH syringe 1 ea Sub-Q TID Rx Instructions: DX:250.B/D INSULIN ULTRA-FINE 30G X 0.3 (DME) pen needle, diabetic 1 EACH needle 1 ea Sub-Q AC Qty: 180 Rx Instructions: DX:250. HUMALOG PEN NEEDLES (DME) blood-glucose meter [FreeStyle Lite Meter] 1 EACH kit 1 ea Miscellaneous TID Qty: 1 Patient Comments: pt states he checks his Blood sugar about evrey few days. 10/16/13 Rx Instructions: dx: 250 on insulin per insurance instead of Accu check (DME) lancets 1 EACH misc 1 ea Intradermal TID Qty: 300 Rx Instructions: DX:250. 01 on insulin Freestyle Lancets TEST STRIPS 1 EACH strip 1 ea Miscellaneous TID Qty: 270 4RF Rx Instructions: DX:250.01 on insulin Freestyle Lite test strips (per insurance) mini Levemir FlexTouch U100 Insulin 100 unit/mL (3 mL) insulin pen 25 unit subcut HS Patient Comments: was dropped on d/c from rehab carvedilol 12.5 mg tablet 12.5 mg PO BID Rx Instructions: must administer with a meal/food famotidine 40 mg tablet 40 mg PO DAILY furosemide 20 mg tablet 20 mg PO DAILY Hold Instructions: Pt Stopped/Never Started Patient Comments: pt unsure of dose atorvastatin 40 mg tablet 40 mg PO QHS hydrochlorothiazide 25 mg tablet 25 mg PO BID pregabalin 100 mg capsule 100 mg PO BID aspirin 81 mg Tablet,Chewable 81 mg PO DAILY amlodipine 10 mg Tablet 10 mg PO DAILY diltiazem HCl 120 mg capsule,extended release 24hr 120 mg PO DAILY oxycodone 5 mg tablet 5 mg PO TID PRN Patient Comments: TAKE ONE TABLET BY MOUTH THREE TIMES A DAY NEEDED FOR SEVERE PAIN. MAXIMUM DAILY DOSE =10MG Eliquis 5 mg tablet 5 mg PO BID Patient Comments: unknown if still taking HPI General Date/Time Provider Initiated Documentation: 03/12/24 14:11 . Limitations to Documentation: altered mental status . Information obtained by: patient and family . HPI Narrative: 58-year-old gentleman with past medical history of ESRD on dialysis (MWF), diabetes, recent left BKA presents for evaluation of altered mental status. Wi fe reports that he was at rehab until Wednesday after his surgery. He came home on Wednesday. She reports that last night he started to seem confused and felt warm but did not have a temperature. She reports that she did not check his blood sugar last night because she did not have test strips, but she did give him his insulin. The patient has no complaints at this time Related Data Home Medications Medication Instructions Recorded Confirmed insulin syringe-needle U-100 1 mL 03/21/13 03/12/24 26 x 1/2 (BD Insulin Syringe) blood-glucose meter (WatsinStyle ##1 03/24/13 03/12/24 Lite Meter kit) pen needle, diabetic 31 gauge x #180 units 03/24/13 03/12/2403/09 lancets 28 gauge #300 ea 08/08/13 03/12/24 amlodipine 10 mg tablet 10 mg PO DAILY 08/05/18 03/12/24 aspirin 81 mg chewable tablet 81 mg PO DAILY 08/05/18 03/12/24 albuterol sulfate 90 mcg/actuation 1 puff inhalation Q6H PRN 04/20/19 03/12/24 aerosol inhaler (ProAir HFA) calcium carbonate 500 mg PO TID 04/20/19 03/12/24 insulin lispro 100 unit/mL 5 unit subcut PRN 04/20/19 03/12/24 subcutaneous pen (Humalog KwikPen (U-100) Insulin) multivitamin 1 tab PO DAILY 04/20/19 03/12/24 sevelamer carbonate 800 mg tablet 800 mg PO BID 04/20/19 03/12/24 atorvastatin 40 mg tablet 40 mg PO QHS 08/18/22 03/12/24 carvedilol 12.5 mg tablet 12.5 mg PO BID 08/18/22 03/12/24 famotidine 40 mg tablet 40 mg PO DAILY 08/18/22 03/12/24 furosemide 20 mg tablet 20 mg PO DAILY 08/18/22 03/12/24 hydrochlorothiazide 25 mg tablet 25 mg PO BID 08/18/22 03/12/24 insulin detemir U-100 100 unit/mL 25 unit subcut HS 08/18/22 03/12/24 (3 mL) subcutaneous pen (Levemir FlexTouch U-100 Insulin) pregabalin 100 mg capsule 100 mg PO BID 08/18/22 03/12/24 Dynamic AFO #2 ea 11/26/22 03/12/24 nortriptyline 25 mg capsule 50 mg PO QHS 11/26/22 03/12/24 apixaban 5 mg tablet (Eliquis) 5 mg PO BID 02/17/24 03/12/24 diltiazem HCl 120 mg 120 mg PO DAILY 02/17/24 03/12/24 capsule,extended release 24 hr oxycodone 5 mg tablet 5 mg PO TID PRN 02/17/24 03/12/24 Previous Rx's Medication Instructions Recorded Dynamic AFO #2 ea 11/26/22 Allergies Allergy/AdvReac Type Severity Reaction Status Date / Time clindamycin Allergy Mild HIVES Verified 03/12/24 14:03 sertraline AdvReac Mild Nausea Verified 03/12/24 14:03 gabapentin AdvReac ANKLE EDEMA Verified 03/12/24 14:03 General Stated Complaint: GenMedical MONIKA: 3 Exam Narrative Exam Narrative: Review of Systems: All systems reviewed & are unremarkable except as noted in HPI and below Well-developed + Febrile NCAT PERRL, normal conjunctiva RRR + murmur Hypoxia, room air sat of 83%, tachypnea increased work of breathing, expiratory crackles Nondistended abdomen , nontender Left upper extremity fistula with palpable thrill Left lower extremity BKA with wound clean dry intact, no erythema or tenderness Right lower extremity heel wound with granulation tissue but no foul smell, erythema or drainage Perseverative question asking, slow to respond, a little sleepy but not obtunded, protecting airway Course Vital Signs Vital signs: Vital Signs Temperature 36.1 C L 03/12/24 14:08 Pulse 86 03/12/24 14:08 Respiratory Rate 12 03/12/24 14:08 Blood Pressure 204/66 H 03/12/24 14:08 Pulse Oximetry 88 L 03/12/24 14:08 Temperature 37.4 C 03/12/24 15:45 Temperature Source Oral 03/12/24 15:45 Pulse 75 03/12/24 15:34 Pulse 77 03/12/24 15:40 Respiratory Rate 32 H 03/12/24 15:40 Respiratory Effort Normal 03/12/24 14:31 Respiratory Depth Normal 03/12/24 14:31 Respiratory Pattern Normal 03/12/24 14:31 Blood Pressure 151/132 H 03/12/24 15:34 Blood Pressure Mean 136 03/12/24 15:34 Blood Pressure Position Sitting 03/12/24 14:31 Pulse Oximetry 98 03/12/24 15:55 Oxygen Delivery Method High Flow Nasal Cannula 03/12/24 15:55 Oxygen Flow Rate 7 03/12/24 15:55 Pain Level 10 03/12/24 14:31 Lab/Test Results Lab/Test Results: 03/12/24 15:00 Blood Blood Culture - Pending 03/12/24 14:24 Blood Blood Culture - Pending Laboratory Tests Range/Units 03/12/24 14:24 WBC (4.4-10.8) 10^3/uL 13.09 H RBC (4.36-5.78) 10^6/uL 2.92 L Hgb (13.5-17.5) g/dL 8.4 L Hct (40.0-50.0) % 27.2 L MCV (80-95) fL 93 MCH (27.0-33.0) pg 28.8 MCHC (32.0-36.0) % 30.9 L RDW (11.8-14.1) % 17.4 H Plt Count (130-400) 10^3/uL 436 H MPV (8.0-11.0) fL 10.6 Immature Gran % % 0.3 Neutrophils % % 73.1 Lymphocytes % % 14.5 Monocytes % % 7.6 Eosinophils % % 3.7 Basophils % % 0.8 Nucleated RBC % (0.0-0.3) % 0.0 Absolute Neutrophils (1.2-6.7) 10^3/uL 9.57 H Absolute Lymphocytes (1.2-3.4) 10^3/uL 1.90 Absolute Monocytes (0.1-0.8) 10^3/uL 0.99 H Absolute Eosinophils (0.0-0.7) 10^3/uL 0.48 Absolute Basophils (0.0-0.2) 10^3/uL 0.10 RBC Morphology See Below Polychromasia Present Hypochromasia 2+ VBG pH (7.31-7.41) 7.38 VBG pCO2 (41-51) mmHg 44 VBG pO2 mmHg 53 VBG HCO3 (23-28) mmol/L 26 VBG Total CO2 (24-29) mmol/L 24 VBG O2 Saturation % 87 VBG Base Excess (-2-3) mmol/L 0 VBG Lactate (0.6-1.4) mmol/L 1.8 H Sodium (136-145) mmol/L 134 L Potassium (3.5-5.1) mmol/L 5.6 H Chloride (98-107) mmol/L 97 L Carbon Dioxide (21.0-32.0) mmol/L 25.4 Anion Gap (3-11) mmol/L 11.6 H BUN (7-18) mg/dL 69 H Creatinine (0.70-1.30) mg/dL 7.0 H* Est GFR (CKD-EPI 2020) (mL/min/1.73m2) 8.50 Glucose (74-106) mg/dL 520 H* Calcium (8.5-10.1) mg/dL 8.7 Total Bilirubin (0.2-1.0) mg/dL 0.3 AST (15-37) U/L 12 L ALT (16-63) U/L 27 Alkaline Phosphatase (46-116) U/L 180 H Total Protein (6.4-8.2) g/dL 6.5 Albumin (3.4-5.0) g/dL 2.2 L Procalcitonin ng/mL 0.8 TSH (0.36-3.74) uIU/Ml 2.08 Medical Decision Making Emergent evaluation of fever. Symptoms started yesterday but have progressively worsened today. Patient is noted to be hyperglycemic and hypoxic in addition to being febrile. Initial differential includes sepsis, pneumonia, doubt pulmonary embolism although higher risk from recent surgery, and hypoxia is noted, but patient is anticoagulated. Supplemental oxygen applied with appropriate improvement and sat. Blood pressures slightly elevated. Initial plan for labs, cultures, chest x-ray and broad spectrum abx 1545 Lab work reviewed. Mild leukocytosis noted at 13. Anemia is stable. Lactic acid is not elevated. His CMP has multiple derangements including hyperkalemia of 5.6 as well as elevation of BUN at 69 and creatinine. The patient does report that he did receive dialysis on Wednesday. He has elevated glucose at 520. Only a minimal elevation oh anion gap but normal pH and normal bicarb, so I doubt DKA. I would be suspicious for HHS, but I am unable to get serum osm testing here. Procalcitonin is slightly elevated at 0.8. His chest x-ray is concerning for bilateral infiltrates these are fairly extensive. I suspect infectious etiology. Given his renal function, I only ordered a noncontrast chest CT. 1600 on 4 L but sats only 89%. Have upgraded to HFNC and he is responding nicely. 1630 CT report reviewed concern for bilateral infiltrates, multifocal pneumonia versus CHF. Patient has no history of CHF and given his concern for infectious etiology with fever and elevated white count, suspect more multifocal pneumonia. They also note left ninth and 10th rib fractures. Patient does not report any pain or history of trauma. 1645 Covid test positive which is concerning given the infilatrates and hypoxia. 1800 Discussed with [facility] ICU, they do not feel the patient meets ICU criteria at this time. Discussed with stepdown physician Dr. Malloy, and patient has been accepted to his service. He is recommending dexamethasone and remdesivir if available. Discussed hyperglycemia and based on lab work, we all agree this is not DKA and an insulin drip is not indicated at this time. I have been informed by the transfer center that the bed will not be available for many hours, so I will start sliding scale insulin while awaiting transfer completion. Medical Records Medical records reviewed: Yes I reviewed the patient's medical records. Lab Data Lab results reviewed: Yes I reviewed the patient's lab results. Quality:[facility] Health Related Social Needs: No Data to Display Critical Care Time Critical Care Time Critical Care Time: Yes Total Critical Care Time: 40 Attestation: CRITICAL CARE Upon my evaluation, this patient had a high probability of imminent or life- threatening deterioration due to hypoxic pneumonia, covid, sepsis which required my direct attention, intervention, and personal management. I have personally provided 40 minutes of critical care time exclusive of time spent on separately billable procedures. Time includes review of laboratory data, radiology results, discussion with consultants, and monitoring for potential decompensation. Interventions were performed as documented above PFSH All Active Problems Anemia (Chronic) Fever (Acute) Diabetic foot infection (Acute) Foot drop, bilateral (Acute) Weakness of both legs (Acute) Hip dysplasia (Acute) Patellofemoral disorders, left knee (Acute) Patellofemoral disorders, right knee (Acute) Internal derangement of right knee (Acute) Internal derangement of left knee (Acute) Left leg pain (Acute) Right leg pain (Acute) Olecranon bursitis, right elbow (Acute) Rectal bleeding (Acute) CKD (chronic kidney disease) (Chronic) STAGE 5 Peripheral neuropathy (Chronic) Hypertension (Chronic) Diabetes mellitus (Chronic) DVT prophylaxis (Acute) Sciatica (Acute) Medical History Dialysis patient AV fistula left arm Tubular adenoma of colon (2016) TIA (transient ischemic attack) Tobacco dependence Hyperlipidemia Anxiety and depression Degenerative joint disease LUMBAR SPINE Exertional shortness of breath Bilateral leg edema Lipoma GERD (gastroesophageal reflux disease) Chronic back pain Retinopathy Blood in stool Surgical History Colonoscopy - MAC (10/08/16) Cholecystectomy Family History Father Colon cancer Social History Smoking/Tobacco Use Status: Current every day Tobacco Type: cigarettes Smoking risk assessment performed?: Yes Alcohol Intake: never Drug use: Daily Substance use type: marijuana Current gender identity: male Do you feel safe at home: Yes Do you feel safe in your relationship?: Yes
[2024-03-12 16:29] LABS: Influenza A PCR Negative (Negative); Influenza B PCR Negative (Negative); RSV PCR Negative (Negative)
[2024-03-12 16:36] LABS: COVID-19 PCR Positive (Negative); Source Nasopharynx
[2024-03-12 17:38] LABS: Lactate 1.3 mmol/L (0.6-1.4)
[2024-03-12] MEDS: Dexamethasone 10 MG/ML VIAL 6 MG IVP (18:19)
[2024-03-12] MEDS: REMDESIVIR 200 MG in Normal Saline 250 ML 250 MG IVPB (19:47)
[2024-03-12] MEDS: Insulin Aspart 300 UNITS/3 ML PEN SC (20:25)
== END 2024-03-12 23:36 | disposition short-term general hospital (02) ==
PROVIDERS: Emergency Provider Emergency Medicine; PCP Family Medicine
DX: E11.65 Type 2 diabetes mellitus with hyperglycemia; U07.1 COVID-19; E11.22 Type 2 diabetes mellitus with diabetic chronic kidney disease; I12.0 Hypertensive chronic kidney disease with stage 5 chronic kidney disease or end stage renal disease; N18.6 End stage renal disease; R91.8 Other nonspecific abnormal finding of lung field
CPT/HCPCS: 36415; 71250; 80053; 82805; 82962; 84145; 87040; 87637; 93005; 96360; 96365; 96367; 96372; 96375; 99291; 71045; 83605; 84443; 85025; 93010; J0131; J0248; J0692; J1100; J1815; J3372

== ENCOUNTER 2024-08-24 02:22 | Outpatient (CLI) | payer MEDICARE, MEDICAID, SELFPAY ==
--- NOTE | 2024-08-24 | DI.RAD_ITS ---
Exam(s) RF BARIUM SWALLOW EXAM: RF BARIUM SWALLOW CLINICAL HISTORY: DYSPHAGIA R13.10 TECHNIQUE: 2D and realtime digital imaging was performed. CONTRAST MATERIAL: Thick and thin barium and barium tablet were administered. COMPARISON: CT CT CHEST WO from 03/12/2024 FINDINGS: The PA and lateral chest films show enlarged heart and chronic interstitial changes. The lateral [employer] view of the neck is unremarkable shows mild degenerative changes of the facet joint s. Exam is limited by patient immobility. Esophagus: The patient swallowed barium without difficulty. There was laryngeal penetration and aspi ration in the upright position. Noevidence for mucosal erosions. Nofold thickening. No mass is vis ible. Nostricture. Motility: There is a normal primary stripping wave. [id number]-ig-jshynecs tertiary contractions were noted . There is a small sliding hiatal hernia. Nogastroesophageal reflux was observed during the exam. IMPRESSION: Laryngeal penetration and aspiration. Small sliding hiatal hernia. Tertiary contractions. No evidence of stricture. RADIATION DOSE DELIVERED: baljit Zapata=14.4 mGy
[2024-08-24] MEDS: Barium Sulfate 60% W/V 355 ML BTL 175 ML PO (09:04)
[2024-08-24] MEDS: Barium Sulfate 98% W/W 140 ML BTL PO (09:04)
[2024-08-24] MEDS: Simethicone/Sod Bicarb/Cit Ac, 4 gram PACKET 1 PACKET PO (09:05)
== END 2024-08-24 02:42 ==
PROVIDERS: PCP Family Medicine; Visit Provider Student in an Organized Health Care Education/Training Program
DX: T17.320A Food in larynx causing asphyxiation, initial encounter (principal)
CPT/HCPCS: 74221; J3490

== ENCOUNTER → 2024-10-17 09:11 | Outpatient (BNVA) | payer MEDICARE, MEDICAID, SELFPAY | PROVIDERS: PCP Student in an Organized Health Care Education/Training Program; Referring Provider Student in an Organized Health Care Education/Training Program; Visit Provider Surgery | DX: R13.12 Dysphagia, oropharyngeal phase (principal); T17.208A Unspecified foreign body in pharynx causing other injury, initial encounter | CPT/HCPCS: 99214 ==

== ENCOUNTER 2024-12-05 11:46 | Outpatient (CLI) | payer MEDICARE, MEDICAID, SELFPAY ==
--- NOTE | 2024-12-05 | DI.US_ITS ---
Exam(s) US LOWER EXTREMITY VENOUS LT EXAM: US LOWER EXTREMITY VENOUS LT CLINICAL HISTORY: PAIN LT LOWER LIMB/LEG, M79.605, SWELLING, BL BKA AMPUTEE, IN ED RECENTLY TECHNIQUE: Grayscale, color, and doppler imaging of the deep venous system of the lower extremity w as performed. COMPARISON: US US LOWER EXTREMITY VASCULAR LT from 08/05/2018 FINDINGS: There has been prior below-knee amputation There is no evidence of intraluminal thrombus and there is normal compression and augmentation demons trated within the common femoral vein, femoral vein, and popliteal vein. In the ipsilateral remaining upper calf the interrogated veins exhibit color flow. There is a complex avascular mass in the ipsilateral popliteal fossa measuring 9 x 2.5 x 5 cm. There are multiple slightly prominent lymph nodes in the left groin measuring up to 2.7 cm size IMPRESSION: 1. No evidence of DVT in the remaining left lower extremity. 2. There is a 9 x 2.5 x 5 cm complex avascular mass in the popliteal fossa. There is possibly that this is a Garcia cyst containing inspissated debris. However cannot exclude other pathologies. 3. Prominent lymph nodes noted in the left groin. Largest measures 2.7 cm by 0.7 cm x 1.7 cm DATA REPOSITORY:
--- OUTSIDE RECORDS SUMMARY | 2024-12-05 11:50 | XMS_ITS ---
Author Organization Unknown Address [address] [place] [phone] Phone Care Team Providers Care Timber Management Specialist Name Role Phone AMANDA Rose Attending Unavailable RANDALL MCKEON Primary Unavailable Social History Type Status Start Date End Date Code Code Syst em Sex Male Hospital Discharge Instructions Should you have any questions prior to discharge, please contact a member of your healthcare team. If you have left the hospital and have any questions, please contact your primary care physician. Reason For Referral No Data Found Plan of Treatment No Data Found Encounters Encounter Diagnosis Start Date Code Code Sys tem Chronic ulcer of foot 12/02/2023 [id number] SNOMED -CT Personal Care Team Section Performer Name Performer Role Active Date Inactive Da te
--- OUTSIDE RECORDS SUMMARY | 2024-12-05 11:50 | XMS_ITS ---
Author Organization Unknown Address [address] [place] [phone] Phone Care Team Providers Care Director Of Math Name Role Phone AMANDA Rose Attending Unavailable [...] Diagnosis Start Date Code Code Sys tem 12/09/2023 [id number] SNOMED-CT Personal Care Team Section Performer Name Performer Role Active Date Inactive Da te
--- OUTSIDE RECORDS SUMMARY | 2024-12-05 11:51 | XMS_ITS ---
Author Organization Unknown Address [address] [place] [address] [phone] Phone Care Team Providers Care Office Professional Name Role Phone AMANDA Rose Attending Unavailable [...] Diagnosis Start Date Code Code Sys tem 12/30/2023 [id number] SNOMED-CT Personal Care Team Section Performer Name Performer Role Active Date Inactive Da te
--- OUTSIDE RECORDS SUMMARY | 2024-12-05 11:51 | XMS_ITS ---
Author Organization Unknown Address [address] [place] [address] [phone] Phone Care Team Providers Care Passenger Booking Clerk Name Role Phone AMANDA Rose Attending Unavailable [...] Diagnosis Start Date Code Code Sys tem 12/16/2023 [id number] SNOMED-CT Personal Care Team Section Performer Name Performer Role Active Date Inactive Da te
--- OUTSIDE RECORDS SUMMARY | 2024-12-05 11:51 | XMS_ITS ---
Author Organization Unknown Address [address] [place] [address] [phone] Phone Care Team Providers Care Wireless Development Manager Name Role Phone AMANDA Rose Attending Unavailable [...] Diagnosis Start Date Code Code Sys tem 01/11/2024 [id number] SNOMED-CT Personal Care Team Section Performer Name Performer Role Active Date Inactive Da te
--- OUTSIDE RECORDS SUMMARY | 2024-12-05 11:52 | XMS_ITS | Referral Summary ---
Author Organization [facility] Address [address] [place] [address] Care Team Providers Care Manager Culture Name Role Phone Ken Greer MD Primary Care Provider [phone] Kiel Powers Unavailable Unavailable Encounters Date Type Department Care Team Description 12/04/2024 [facility]ation [facility] [address] [place] [id number] Marcela Cox RN 12/04/2024 6:45 EST Treatment [facility] [address] [place] [phone] Carlota Jin MD ESRD (end stage renal disease) ([facility]) (Primary Dx); Secondary hyperparathyroidism ([facility]) 12/01/2024 6:45 EST [facility] [address] [place] [phone] Carlota Jin MD ESRD (end stage renal disease) ([facility]) (Primary Dx); Secondary hyperparathyroidism ([facility]) 11/29/2024 6:45 EST [facility] [address] [place] [phone] Carlota Jin MD ESRD (end stage renal disease) ([facility]) (Primary Dx); Secondary hyperparathyroidism ([facility]) 11/28/2024 [facility] [address] [place] [phone] Shelley Eden, RD 11/27/2024 6:45 EST Treatment [facility] [address] [place] [address] Carlota Jin MD ESRD (end stage renal disease) ([facility]) (Primary Dx); Secondary hyperparathyroidism ([facility]) 12/04/2024 Plan of Care Documentation [facility] [address] [place] [address] 11/24/2024 [facility] [address] [place] [address] Yoanna Degroot, VIDYA 11/24/2024 [facility]ation [facility] [address] [place] [address] Melissa Crespo, VIDYA 11/24/2024 6:45 EST Treatment [facility] [address] [place] [address] Carlota Jin MD ESRD (end stage renal disease) ([facility]) (Primary Dx); Secondary hyperparathyroidism ([facility]) 11/22/2024 6:45 EST [facility] [address] [place] [address] Carlota Jin MD ESRD (end stage renal disease) ([facility]) (Primary Dx); Secondary hyperparathyroidism ([facility]) 11/20/2024 Documentation Visit [facility] [address] [place] [address] Shelley Eden, RD 11/20/2024 6:45 EST Treatment [facility] [address] [place] [address] Carlota Jin MD ESRD (end stage renal disease) ([facility]) (Primary Dx); Secondary hyperparathyroidism ([facility]) 11/17/2024 6:45 EST Treatment [facility] [address] [place] [address] Carlota Jin MD ESRD (end stage renal disease) ([facility]) (Primary Dx); Secondary hyperparathyroidism ([facility]) 11/15/2024 Documentation Visit [facility] [address] [place], [place] [address] Alexa Estrada LICSW 11/15/2024 6:45 EST Treatment [facility] [address] [place], [place] [phone] Carlota Jin MD ESRD (end stage renal disease) ([facility]) (Primary Dx); Secondary hyperparathyroidism ([facility]) 11/13/2024 6:45 EST [facility] [address] [place], [place] [phone] Carlota Jin MD ESRD (end stage renal disease) ([facility]) (Primary Dx); Hypoalbuminemia; Secondary hyperparathyroidism ([facility]) 11/10/2024 6:45 EST Treatment [facility] [address] [place] [address] Carlota Jin MD ESRD (end stage renal disease) ([facility]) (Primary Dx); Hypoalbuminemia; Secondary hyperparathyroidism ([facility]) 11/08/2024 [facility]ation [facility] [address] [place], [place] [address] Marcela Cox, VIDYA 11/08/2024 6:45 EST Treatment [facility] [address] [place] [address] Carlota Jin MD ESRD (end stage renal disease) ([facility]) (Primary Dx); Hypoalbuminemia; Secondary hyperparathyroidism ([facility]) 11/06/2024 6:45 EST Treatment [facility] [address] [place], [place] [address] Carlota Jin MD ESRD (end stage renal disease) ([facility]) (Primary Dx); Hypoalbuminemia; Secondary hyperparathyroidism ([facility]) 11/03/2024 6:45 EST Treatment [facility] [address] [place], [place] [address] Carlota Jin MD ESRD (end stage renal disease) ([facility]) (Primary Dx); Hypoalbuminemia; Secondary hyperparathyroidism ([facility]) 11/01/2024 6:45 EST Treatment [facility] [address] [place], [place] [address] Carlota Jin MD ESRD (end stage renal disease) ([facility]) (Primary Dx); Hypoalbuminemia; Secondary hyperparathyroidism ([facility]) 10/31/2024 Documentation Visit [facility] [address] [place], [place] [phone] Shelley Eden, ADITI 10/30/2024 Documentation [facility] [address] [place], [place] [address] Alexa Estrada, STUNTMAN 10/30/2024 6:45 EST Treatment [facility] [address] [place], [place] [address] Carlota Jin MD ESRD (end stage renal disease) ([facility]) (Primary Dx); Secondary hyperparathyroidism ([facility]); Hypoalbuminemia 10/27/2024 Orders Only [facility] [address] [address] Paris Quintanilla NP 10/27/2024 6:45 EST Treatment [facility] [address] [place], [place] [address] Carlota Jin MD ESRD (end stage renal disease) ([facility]) (Primary Dx); Hypoalbuminemia; Secondary hyperparathyroidism ([facility]) 10/26/2024 6:45 EST Treatment [facility] [address] [place], [place] [phone] ESRD (end stage renal disease) ([facility]) (Primary Dx); Hypoalbuminemia; Secondary hyperparathyroidism ([facility]) 10/23/2024 6:45 EST Treatment [facility] [address] [place], [place] [phone] Carlota Jin MD ESRD (end stage renal disease) ([facility]) (Primary Dx); Hypoalbuminemia; Secondary hyperparathyroidism ([facility]) 10/20/2024 6:45 EST Treatment [facility] [address] [place], [place] [phone] Carlota Jin MD ESRD (end stage renal disease) ([facility]) (Primary Dx); Hypoalbuminemia; Secondary hyperparathyroidism ([facility]) 10/19/2024 6:45 EST Treatment [facility] [address] [place] [phone] ESRD (end stage renal disease) ([facility]) (Primary Dx); Hypoalbuminemia; Secondary hyperparathyroidism ([facility]) 10/16/2024 6:45 EST Treatment [facility] [address] [place] [phone] Carlota Jin MD ESRD (end stage renal disease) ([facility]) (Primary Dx); Hypoalbuminemia; Secondary hyperparathyroidism ([facility]) 10/13/2024 6:45 EST Treatment [facility] [address] [place] [address] Carlota Jin MD ESRD (end stage renal disease) ([facility]) (Primary Dx); Hypoalbuminemia; Secondary hyperparathyroidism ([facility]) 10/11/2024 6:45 EST Treatment [facility] [address] [place] [phone] Carlota Jin MD ESRD (end stage renal disease) ([facility]) (Primary Dx); Hypoalbuminemia; Secondary hyperparathyroidism ([facility]) 10/09/2024 Documentation [facility] [address] [place] [phone] Alexa Estrada, STUNTMAN 10/09/2024 6:45 EST Treatment [facility] [address] [place], [place] [address] Carlota Jin MD ESRD (end stage renal disease) ([facility]) (Primary Dx); Hypoalbuminemia; Secondary hyperparathyroidism ([facility]) 10/06/2024 6:45 EST [facility] [address] [place] [address] Carlota Jin MD ESRD (end stage renal disease) ([facility]) (Primary Dx); Hypoalbuminemia; Secondary hyperparathyroidism ([facility]) 10/04/2024 Orders Only [facility] [address] [place], [place] [address] Yoanna Degroot, VIDYA 10/04/2024 Documentation [facility] [address] [place], [place] [address] Marcela Cox, VIDYA 10/04/2024 6:45 EST Treatment [facility] [address] [place], [place] [address] Carlota Jin MD ESRD (end stage renal disease) ([facility]) (Primary Dx); Hypoalbuminemia; Secondary hyperparathyroidism ([facility]) 10/02/2024 Documentation [facility] [address] [place], [place] [address] Shelley Eden, ADITI 10/02/2024 6:45 EST Treatment [facility] [address] [place], [place] [address] Carlota Jin MD ESRD (end stage renal disease) ([facility]) (Primary Dx); Hypoalbuminemia; Secondary hyperparathyroidism ([facility]) 09/29/2024 6:45 EST Treatment [facility] [address] [place], [place] [address] Carlota Jin MD ESRD (end stage renal disease) ([facility]) (Primary Dx); Hypoalbuminemia; Secondary hyperparathyroidism ([facility]) 09/27/2024 6:45 EST Treatment [facility] [address] [place] [address] Carlota Jin MD ESRD (end stage renal disease) ([facility]) (Primary Dx); Hypoalbuminemia; Secondary hyperparathyroidism ([facility]) 09/26/2024 Documentation [facility] [address] [place], [place] [address] Shelley Eden, RD 09/25/2024 6:45 EST Treatment [facility] [address] [place], [place] [address] Carlota Jin MD ESRD (end stage renal disease) ([facility]) (Primary Dx); Hypoalbuminemia; Secondary hyperparathyroidism ([facility]) 09/22/2024 6:45 EST Treatment [facility] [address] [place] [address] Carlota Jin MD ESRD (end stage renal disease) ([facility]) (Primary Dx); Hypoalbuminemia; Secondary hyperparathyroidism ([facility]) 09/20/2024 6:45 EST Treatment [facility] [address] [place] [address] Carlota Jin MD ESRD (end stage renal disease) ([facility]) (Primary Dx); Hypoalbuminemia; Secondary hyperparathyroidism ([facility]) 09/18/2024 6:45 EST Treatment [facility] [address] [place], [place] [address] Carlota Jin MD ESRD (end stage renal disease) ([facility]) (Primary Dx); Hypoalbuminemia; Secondary hyperparathyroidism ([facility]) 09/15/2024 6:45 EST Treatment [facility] [address] [place], [place] [address] Carlota Jin MD ESRD (end stage renal disease) ([facility]) (Primary Dx); Hypoalbuminemia; Secondary hyperparathyroidism ([facility]) 09/14/2024 Documentation [facility] [address] [place], [place] [address] Shelley Eden RD 09/13/2024 6:45 EST Treatment [facility] [address] [place] [address] Carlota Jin MD ESRD (end stage renal disease) ([facility]) (Primary Dx); Hypoalbuminemia; Secondary hyperparathyroidism ([facility]) 09/11/2024 6:45 EST Treatment [facility] [address] [place], [place] [phone] Carlota Jin MD ESRD (end stage renal disease) ([facility]) (Primary Dx); Hypoalbuminemia; Secondary hyperparathyroidism ([facility]) 09/08/2024 6:45 EST Treatment [facility] [address] [place], [place] [address] Carlota Jin MD ESRD (end stage renal disease) ([facility]) (Primary Dx); Hypoalbuminemia; Secondary hyperparathyroidism ([facility]) 09/06/2024 Documentation Visit [address] [address] Paris Quintanilla NP 09/06/2024 6:45 EST Treatment [facility] [address] [place], [place] [address] Carlota Jin MD ESRD (end stage renal disease) ([facility]) (Primary Dx); Hypoalbuminemia; Secondary hyperparathyroidism ([facility]) 09/04/2024 Documentation Visit [facility] [address] [place], [place] [phone] Marcela Cox, VIDYA 09/04/2024 Documentation Visit [facility] [address] [place], [place] [phone] Alexa Estrada LICSW 09/04/2024 6:45 EST Treatment [facility] [address] [place] [address] Carlota Jin MD ESRD (end stage renal disease) ([facility]) (Primary Dx); Hypoalbuminemia; Secondary hyperparathyroidism ([facility]) from Last 3 Months Allergies Active Allergy Reactions Criticality Noted Date Comments Clindamycin Hives,Swelling Low 07/15/2021 Gabapentin Swelling 11/11/2022 Other Reaction(s): ANKLE EDEMA Pregabalin 04/19/2019 Other reaction(s): Unsure Sertraline 04/19/2019 Other reaction(s): Unsure Medications atorvastatin (LIPITOR) 40 mg tablet Take 1 Tablet by mouth daily. Active carvediloL (COREG) 12.5 mg tablet Take 1 Tablet by mouth 2 times daily. Active calcium carbonate (TUMS) 200 mg calcium (500 mg) tablet,chewable Take 1 Tablet by mouth 3 times daily with meals. Active acetaminophen (TYLENOL) 325 mg tablet Take 2 Tablets by mouth every 6 hours. 0 4 Active dilTIAZem (CARDIZEM CD) 120 mg capsule Take 1 Capsule by mouth daily. 30 Capsule 4 Active insulin pen needles 32G x 5/32 Brand: [employer] Ultra Fine Anny. ISS TID and levemir once daily 100 Each 11 4 Active amLODIPine (NORVASC) 10 mg tablet Take 1 Tablet by mouth daily. 4 Active cholecalciferol, Vitamin D3, 25 mcg (1,000 unit) tablet Take 2 Tablets by mouth. 4 Active insulin glargine 100 unit/mL (3 mL) injection pen Inject 10 Units into the skin 2 times daily. 10 u after dialysis around 11am and 10 u at bedtime, around 10 pm Active pantoprazole (PROTONIX) 40 mg tablet Take 1 Tablet by mouth daily. Active tiZANidine (ZANAFLEX) 4 mg tablet Take 1 Tablet by mouth every 8 hours as needed. Active aspirin chewable 81 mg tablet Take 1 Tablet by mouth daily. Active pregabalin (LYRICA) 100 mg capsule Take 1 Capsule by mouth 2 times daily. 1 tab in the morning, 2 tabs at night Active albuterol 90 mcg/actuation HFA aerosol inhaler inhaler Inhale 2 Puffs as directed every 4 hours. Active DULoxetine (CYMBALTA) 20 mg delayed release capsule Take 1 Capsule by mouth 2 times daily. Active apixaban (ELIQUIS) 5 mg tablet Take 1 Tablet by mouth 2 times daily. Active insulin aspart U-100 (NOVOLOG FLEXPEN) 100 unit/mL (3 mL) injectable pen Inject into the skin 3 times daily with meals. Per sliding scale Active HYDROmorphone (DILAUDID) 2 mg tablet Take 2 Tablets by mouth every 4 hours as needed. Active senna-docusate (SENNA PLUS) 8.6-50 mg per tablet Take 1 Tablet by mouth daily. Active polyethylene glycol 3350 (MIRALAX) 17 gram packet Take 17 g by mouth 2 times daily. Active torsemide (DEMADEX) 100 mg tablet Take 1 Tablet by mouth daily. 30 Tablet 11 4 Active SUSY-LOCO 0.8 mg tablet Take 1 Tablet by mouth daily. 4 Active sevelamer carbonate (RENVELA) 800 mg tablet Take 3 Tablets by mouth daily before breakfast AND 3 Tablets daily before lunch AND 3 Tablets daily before dinner. 270 Tablet 5 5 Active sodium zirconium cyclosilicate (LOKELMA) 10 gram powder in packet Take 10 g by mouth daily. 30 Packet 11 5 Active cyclobenzaprine (FLEXERIL) 10 mg tablet take one tablet by mouth three times a day as needed for spasm 5 Active oxyCODONE-acetami nophen (PERCOCET) 5-325 mg per tablet Take 1 Tablet by mouth every 4 hours as needed for Pain. Daily Max: 6 Tablets 5 Active sodium polystyrene (KAYEXALATE) powder Take 15 g by mouth daily. 453.6 g 11 4 025 Discontin ued(Alter jenifer therapy) Active Problems Problem Noted Date Diagnosed Date Diabetes mellitus ([facility]) 05/31/2024 Anxiety and depression 02/22/2024 GERD (gastroesophageal reflux disease) 4 Olecranon bursitis, right elbow 02/22/2024 Osteoarthrosis 02/22/2024 Peripheral neuropathy 02/22/2024 Retinopathy 02/22/2024 Sciatica 02/22/2024 Smoker 02/22/2024 Non-healing open wound of heel 02/18/2024 Atrial fibrillation and flutter ([facility]) 2023 Anemia of chronic renal fail ure, stage 5 ([facility]) [N18.5, D63.1] 12/20/2023 ESRD on hemodialysis ([facility]) 12/20/2023 Type 2 diabetes mellitus wit h chronic kidney disease on chronic dialysis, with long-term current use of insulin ([facility]) [E11.22, N18.6, Z99.2, Z79.4] 11/09/2023 Diabetic foot infection ([facility]) [E11.628, L08. 9] 11/07/2023 COVID 11/07/2023 Cellulitis and abscess of foot, except toes 05/2024 Encounter for therapeutic drug monitoring 2023 Anemia of chronic renal failure 01/26/2023 Abnormal albumin 01/26/2023 Hypoalbuminemia 12/09/2022 Encounter for immunization 11/30/2022 ESRD (end stage renal disease) (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) 07/15/2021 TIA (transient ischemic attack) 07/19/2020 Right sided numbness 03/07/2019 Anemia in chronic kidney disease 02/09/2019 Nicotine dependence, cigarettes, uncomplicated 0 02/09/2019 Type 2 diabetes mellitus wit h diabetic neuropathy, unspecified ([facility]) 02/09/2019 Secondary hyperparathyroidism of renal origin ([facility]) 02/09/2019 Secondary hyperparathyroidism ([facility]) 10/26/19 19 Proteinuria 09/07/2016 Primary hypertension [I10] 07/19/2016 Hyperlipidemia 07/19/2016 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 08/16/2015 Overview (11/13/2022): L4-5 left Hearing loss 07/19/2014 Type II or unspecified type diabetes mellitus with neurological manifestations, uncontrolled(250.62) 07/19/2014 Resolved Problems Problem Noted Date Diagnosed Date Resolved Date Hypoglycemia 05/31/2024 05/31/2024 Acute hypoxic respiratory failure ([facility]) 05/30/2024 05/31/2024 Hyperkalemia [E87.5] 12/20/2023 024 Cellulitis 12/20/2023 12/24/2023 Immunizations Name Administration Dates Next Due Covid-19 mRNA-LNP Va ccine (MODERNA COVID-19) PF 0.5 mL IM (12 yrs+) 08/18/2023(Deferred: Patient Refused) Covid-19 mRNA-LNP Va ccine (MODERNA COVID-19) PF 0.5 mL IM (12 yrs+) 08/04/2024(Deferred: Patient Refused) Hepatitis B Vaccine Adult IM 05/06/2020, 01/01/2020,12/04/2019,11/06,09/04/2019,05/01/2019,04/03/2019 ,03/14/2019,08/09/2018 Hepatitis B Vaccine Dialysis /Immunosup 4-dose IM 04/06/2022,02/02/2022,01/05/2022,12/08 Influenza (whole) 07/28/2022,08/01/2021 Influenza Vaccine Quad PF 0. 5 ml IM (6 mos+) 07/30/2023 Influenza Vaccine Trivalent (IIV3) Split Virus (AFLURIA) PF 0.5 mL IM (36 mos+) 08/02/2024 Pneumococcal Conjugate Vacci ne 13-Valent (PCV13) (PREVNAR-13) 0.5 mL IM (6 wks+) 08/02/2019 Pneumococcal Conjugate Vacci ne 20-Valent (PCV20) (PREVNAR-20) 0.5 mL IM (6 wks+) 11/30/2022 Pneumococcal Polysaccharide (PPSV23) Vaccine (PNEUMOVAX-23) =>2YO SQ/IM 09/07/2011,04/15/2001 Td (Adult) 5 Lf Vaccine (TEN IVAC) Preservative Free =>7yo IM 10/30/1996 Tdap Vaccine =>7YO IM 05/31/2016 Social History Tobacco Use Types Packs/Day Years Used Date Smoking Tobacco: Every Day Cigarettes 1 26.1 Started: 1998 Smokeless Tobacco: Never Tobacco Cessation:Ready to Q uit: Not Asked; Counseling Given: Not Answered Alcohol Use Standard Drinks/Week Comments Yes 0 (1 standard drink = 0.6 oz pur e alcohol) Socially [facility] Utilities Answer Date Recorded In the past 12 months has th e electric, gas, oil, or water company threatened to shut off services in your home? No 11/15/2024 PHQ-2 Answer Date Recorded PHQ-2 SUBTOTAL 4 12/03/2023 Hunger Vital Sign Answer Date Recorded Within the past 12 months, y ou worried that your food would run out before you got the money to buy more. Never true 11/15/19 25 Within the past 12 months, t he food you bought just didn't last and you didn't have money to get more. Never true 11/15/2024 PRAPARE - Transportation Answer Date Re corded In the past 12 months, has l ack of transportation kept you from medical appointments or from getting medications? No 03/2024 In the past 12 months, has l ack of transportation kept you from meetings, work, or from getting things needed for daily living? No 05/30/2024 Housing Stability Vital Sign Answer Lon e Recorded In the last 12 months, was t here a time when you were not able to pay the mortgage or rent on time? No 05/30/2024 In the past 12 months, how m any times have you moved where you were living? 1 05/30/2024 At any time in the past 12 m [facility], were you homeless or living in a intermediate (including now)? No 05/30/2024 [facility] - Inadequate Housing Answer Date Re corded What is your living situation today? I have a [facility] place to live 11/15/[address] you li ve. Do you have problems with any of the following? None of the above 11/15/2024 [facility] - Transportation Answer Date Record ed In the past 12 months, has l ack of reliable transportation kept you from medical appointments, meetings, work or from getting things needed for daily living? No 11/15/2024 [facility] - Personal Safety Answer Date Recor ded How often does anyone, inclu ding family and friends, physically hurt you? Never 11/15/2024 How often does anyone, martin lyons family and friends, insult or talk down to you? Never 11/15/2024 How often does anyone, martin lyons family and friends, threaten you with harm? Never 11/15/2024 How often does anyone, martin lyons family and friends, scream or curse at you? Never 11/15/2024 [facility] - Financial Strain Answer Date Cornel rded How hard is it for you to pa y for the very basics like food, housing, medical care, and heating? Would you say it is: Not hard at all 11/15/2024 [facility] - Employment Answer Date Recorded Do you want help finding or keeping work or a job? I do not need or want help 11/15/2024 [facility] - Social Connections Answer Date Re corded If for any reason you need h elp with day-to-day activities such as bathing, preparing meals, shopping, managing finances, etc., do you get the help you need? I get all the help I need 11/15/2024 How often do you feel lonely or isolated from those around you? Never 11/15/2024 [facility] - Education Answer Date Recorded Do you speak a language other than [place]ican at [facility]? No 11/15/2024 Do you want help with school or training? For example, starting or completing job training or getting a high school diploma, GED or equivalent. No 11/15/2024 [facility] - Physical Activity Answer Date Rec orded In the last 30 days, other t anderson the activities you did for work, on average, how many days per week did you engage in moderate exercise (like walking fast, running, jogging, dancing, swimming, biking, or other similar activities)? Patient declined 11/15/2024 On average, how many minutes did you usually spend exercising at this level on one of those days? Patient declined 025 Interpersonal Safety Answer Date Record ed How often does anyone, martin lyons family, hit, punch or physically hurt you? 05/30/2024 How often does anyone, martin lyons family, insult, scream, curse or threaten to hurt you? 05/30/2024 Living Situation Answer Date Recorded What is your living situation today? I have a rainer place to live 05/30/[address] you li ve. Do you have problems with any of the following? None of the above 05/30/2024 Interpersonal Safety Answer Date Record ed How often does anyone, martin lyons family and friends, physically hurt you? Never 05/30/2024 How often does anyone, martin lyons family and friends, insult or talk down to you? Never 05/30/2024 How often does anyone, martin lyons family and friends, threaten you with harm? Never 05/30/2024 How often does anyone, martin lyons family and friends, scream or curse at you? Never 05/30/2024 Food Answer Date Recorded Within the past 12 months, y ou worried that your food would run out before you got money to buy more. Never true 05/30/2024 Within the past 12 months, t he food you bought just didn't last and you didn't have money to get more. Never true 05/30/2024 Transportation Answer Date Recorded In the past 12 months, has l ack of reliable transportation kept you from medical appointments, meetings, work or from getting things needed for daily living? No 05/30/2024 Utilities Answer Date Recorded In the past 12 months has th e electric, gas, oil, or water company threatened to shut off services in your home? No 05/30/2024 Sex and Gender Information Value Date Recorded Sex Assigned at Not on file Legal Sex Male 18:49 EST Gender Identity Male 07/07/2023 14:11 EDT Sexual Orientation Not on file Last Filed Vital Signs Vital Sign Reading Time Taken Comments Blood Pressure 197/88 07/20/2024 1359 EDT Pulse 70 07/20/2024 1359 EDT Temperature 36.7 ??C (98.1 ??F) 05/31/2024 1633 EDT Respiratory Rate 16 12/04/2024 0621 EST Oxygen Saturation 91% 05/31/2024 0453 EDT Inhaled Oxygen Concentration - - Weight 83.1 kg (183 lb 3.2 oz) 12/04/[address] Height 177.8 cm (5' 10) 07/20/2024 1359 EDT Body Mass Index 26.29 07/20/2024 1359 EDT Functional Status * Are you deaf or do you have serious difficulty hearing? Answer Date of Assessment Author Yes 05/30/2024 18:25 EDDaria Whitfield RN * Are you blind or do you have serious difficulty seeing, even when wearing glasses? Answer Date of Assessment Author No 05/30/2024 18:25 EDT Daria Fonseca RN * Do you have serious difficulty walking or climbing stairs? (5 years old or older) Answer Date of Assessment Author Yes 05/30/2024 18:25 EDDaria Whitfield RN * Do you have difficulty dressing or bathing? (5 years old or older) Answer Date of Assessment Author No 05/30/2024 18:25 Daria Baca RN * Because of a physical, mental, or emotional condition, do you have difficulty doing errands alone such as visiting a doctor's office or shopping? (15 years old or older) Answer Date of Assessment Author Yes 05/30/2024 18:25 Daria Baca RN Mental Status * Because of a physical, mental, or emotional condition, do you have serious difficulty concentrating, remembering, or making decisions? (5 years old or older) Answer Entry Date Author No 05/30/2024 18:25 Daria Baca RN Plan of Treatment Upcoming Encounters Date Type Department Care Team (Late st Contact Info) Description 12/06/2024 6:45 EST Treatment [facility] [address] [place], [place] [id number] Carlota Jin MD [address] [place] [address], [facility] [address] [place] [phone] 12/08/2024 6:45 EST Treatment [facility] [place] [address] [place], [place] [id number] Carlota Jin MD 1 [facility], [facility] 2 [place] [phone] 12/11/2024 6:45 EST Treatment [facility] - [place] [address] [place], [place] [id number] Carlota Jin MD 1 [facility], [facility] 2 [place] [phone] 12/13/2024 6:45 EST Treatment [facility] - [place] [address] [place], [place] [id number] Carlota Jin MD 1 [facility], [facility] 2 [place] [phone] 12/15/2024 6:45 EST Treatment [facility] - [place] [address] [place], [place] [id number] Carlota Jin MD 1 [facility], [facility] [address] [place] [phone] 12/18/2024 6:45 EST Treatment [facility] - [place] [address] [place], [place] [phone] Carlota Jin MD 1 [facility], [facility] [address] [place] [phone] 12/20/2024 6:45 EST Treatment [facility] [place] [address] [place], [place] [id number] Carlota Jin MD 1 [facility], [facility] 2 [place] [phone] 12/22/2024 6:45 EST Treatment [facility] - [place] [address] [place], [place] [phone] Carlota Jin MD 1 [facility], [facility] [address] [place] [phone] 12/25/2024 6:45 EST Treatment [facility] [place] [address] [place], [place] [id number] Carlota Jin MD 1 [facility], [facility] [address] [place] [phone] 12/27/2024 6:45 EST Treatment [facility] [place] [address] [place], [place] [id number] Carlota Jin MD 1 [facility], [facility] [address] [place] [phone] 12/29/2024 6:45 EST Treatment [facility] - [place] [address] [place], [place] [phone] Carlota Jin MD 1 [facility], [facility] [address] [place] [phone] 01/01/2025 6:45 EDT Treatment [facility] - [place] [address] [place] [address] Carlota Jin MD 1 [facility], [facility] [address] [place] [phone] 01/03/2025 6:45 EDT Treatment [facility] [address] [place], [place] [phone] Carlota Jin MD 1 [facility], [facility] [address] [place] [phone] 01/05/2025 6:45 EDT Treatment [facility] - [place] [address] [place], [place] [phone] Carlota Jin MD 1 [facility], [facility] 2 [place] [phone] 01/08/2025 6:45 EDT Treatment [facility] [place] [address] [place], [place] [phone] Carlota Jin MD [address] [place] [address], [address] [phone] 01/10/2025 6:45 EDT Treatment [facility] [place] [address] [place], [place] [id number] Carlota Jin MD [address] [place] [address], [address] [phone] 01/12/2025 6:45 EDT Treatment [facility] [place] [address] [place], [place] [id number] Carlota Jin MD [address] [place] [address], [facility] [address] [place] [phone] 01/15/2025 6:45 EDT Treatment [facility] [place] [address] [place], [place] [phone] Carlota Jin MD [address] [place] [address], [facility] 2 [place] [phone] 01/17/2025 6:45 EDT Treatment [facility] [place] [address] [place], [place] [id number] Carlota Jin MD 1 [facility], [facility] 2 [place] [phone] 01/19/2025 6:45 EDT Treatment [facility] [place] [address] [place], [place] [id number] Carlota Jin MD 1 [facility], [facility] 2 [place] [phone] 01/22/2025 6:45 EDT Treatment [facility] - [place] [address] [place], [place] [phone] Carlota Jin MD 1 [facility], [facility] 2 [place] [phone] 01/24/2025 6:45 EDT Treatment [facility] [place] [address] [place], [place] [phone] Carlota Jin MD 1 [facility], [facility] 2 [place] [phone] 01/26/2025 6:45 EDT [facility] [address] [place], [place] [phone] Carlota Jin MD 1 [facility], [facility] 2 [place] [phone] 01/29/2025 6:45 EDT Treatment [facility] [place] [address] [place], [place] [phone] Carlota Jin MD 1 [facility], [facility] 2 [place] [phone] 01/31/2025 6:45 EDT Treatment [facility] [place] [address] [place], [place] [id number] Carlota Jin MD 1 [facility], [facility] 2 [place] [phone] 02/02/2025 6:45 EDT Treatment [facility] [place] [address] [place], [place] [phone] Carlota Jin MD 1 [facility], [facility] 2 [place] [phone] 02/05/2025 6:45 EDT Treatment [facility] - [place] [address] [place], [place] [id number] Carlota Jin MD 1 [facility], [address] [phone] 02/07/2025 6:45 EDT Treatment [facility] [place] [address] [place] [address] Carlota Jin MD 1 [facility], [facility] 2 [place] [phone] 02/09/2025 6:45 EDT Treatment [facility] [place] [address] [place], [place] [phone] Carlota Jin MD 1 [facility], [facility] 2 [place] [phone] 02/12/2025 6:45 EDT Treatment [facility] - [place] [address] [place], [place] [id number] Carlota Jin MD 1 [facility], [facility] 2 [place] [phone] 02/14/2025 6:45 EDT Treatment [facility] [address] [place], [place] [id number] Carlota Jin MD 1 [facility], [address] [phone] 02/16/2025 6:45 EDT Treatment [facility] [address] [place], [place] [id number] Carlota Jin MD 1 [facility], [address] [phone] 02/19/2025 6:45 EDT Treatment [facility] [address] [place], [place] [phone] Carlota Jin MD 1 [facility], [address] [phone] 02/21/2025 6:45 EDT Treatment [facility] [address] [place], [place] [phone] Carlota Jin MD 1 [facility], [address] [phone] Procedures Procedure Name Priority Date/Time Associated Diagnosis Comments HEMODIALYSIS Routine 12/04/2024 6:21 EST ESRD (end stage renal disease) ([facility]) HEMODIALYSIS Routine 12/01/2024 6:23 EST ESRD (end stage renal disease) ([facility]) COMPLETE BLOOD COUNT Routine 11/29/2024 6:34 EST ESRD (end stage renal disease) ([facility]) HEMODIALYSIS Routine 11/29/2024 6:27 EST ESRD (end stage renal disease) ([facility]) POSTDIALYSIS BUN WITH URR CALCULATION Routine 11/27/2024 11:08 EST ESRD (end stage renal disease) ([facility]) FERRITIN Routine 11/27/2024 6:35 EST ESRD (end stage renal disease) ([facility]) TRANSFERRIN SATURATION Routine 11/27/2024 6:35 EST ESRD (end stage renal disease) ([facility]) DIALYSIS ROUTINE - DIALYSIS ONLY (BUN, K, NA, CL, CO2, SANJEEV, ALB, MG, PHOS, ALKP, AST) Routine 11/27/2024 6:35 EST ESRD (end stage renal disease) ([facility]) PROFILE IRON STUDIES (INCLUDES IRON, IBC, AND FERRITIN) Routine 11/27/2024 6:35 EST ESRD (end stage renal disease) ([facility]) HEMODIALYSIS Routine 11/27/2024 6:19 EST ESRD (end stage renal disease) ([facility]) HEMODIALYSIS Routine 11/24/2024 6:25 EST ESRD (end stage renal disease) ([facility]) COMPLETE BLOOD COUNT Routine 11/22/2024 6:32 EST ESRD (end stage renal disease) ([facility]) HEMODIALYSIS Routine 11/22/2024 6:25 EST ESRD (end stage renal disease) ([facility]) POCT GLUCOSE, INTERFACED Routine 11/20/2024 9:32 EST HEMODIALYSIS Routine 11/20/2024 6:21 EST ESRD (end stage renal disease) ([facility]) HEMODIALYSIS Routine 11/17/2024 6:23 EST ESRD (end stage renal disease) ([facility]) COMPLETE BLOOD COUNT Routine 11/15/2024 6:33 EST ESRD (end stage renal disease) ([facility]) HEMODIALYSIS Routine 11/15/2024 6:25 EST ESRD (end stage renal disease) ([facility]) HEMODIALYSIS Routine 11/13/2024 6:20 EST ESRD (end stage renal disease) ([facility]) HEMODIALYSIS Routine 11/10/2024 6:18 EST ESRD (end stage renal disease) ([facility]) COMPLETE BLOOD COUNT Routine 11/08/2024 6:32 EST ESRD (end stage renal disease) ([facility]) HEMODIALYSIS Routine 11/08/2024 6:25 EST ESRD (end stage renal disease) ([facility]) HEMODIALYSIS Routine 11/06/2024 6:22 EST ESRD (end stage renal disease) ([facility]) POCT GLUCOSE, INTERFACED Routine 11/03/2024 10:33 EST POCT GLUCOSE, INTERFACED Routine 11/03/2024 8:39 EST POCT GLUCOSE, INTERFACED Routine 11/03/2024 7:27 EST POCT GLUCOSE, INTERFACED Routine 11/03/2024 6:59 EST HEMODIALYSIS Routine 11/03/2024 6:20 EST ESRD (end stage renal disease) ([facility]) COMPLETE BLOOD COUNT Routine 11/01/2024 6:27 EST ESRD (end stage renal disease) ([facility]) HEMODIALYSIS Routine 11/01/2024 6:17 EST ESRD (end stage renal disease) ([facility]) POSTDIALYSIS BUN WITH URR CALCULATION Routine 10/30/2024 11:05 EST ESRD (end stage renal disease) ([facility]) FERRITIN Routine 10/30/2024 6:47 EST ESRD (end stage renal disease) ([facility]) TRANSFERRIN SATURATION Routine 10/30/2024 6:47 EST ESRD (end stage renal disease) ([facility]) VITAMIN D (25,[place]) Routine 10/30/2024 6:4 7 EST ESRD (end stage renal disease) ([facility]) VITAMIN B12 Routine 10/30/2024 6:47 EST ESRD (end stage renal disease) ([facility]) FOLATE Routine 10/30/2024 6:47 EST ESRD (end stage renal disease) ([facility]) DIALYSIS HEPATITIS- DIALYSIS USE ONLY Routine 10/30/2024 6:47 EST ESRD (end stage renal disease) ([facility]) PTH INTACT Routine 10/30/2024 6:47 EST ESRD (end stage renal disease) ([facility]) Secondary hyperparathyroidism ([facility]) DIALYSIS ROUTINE - DIALYSIS ONLY (BUN, K, NA, CL, CO2, SANJEEV, ALB, MG, PHOS, ALKP, AST) Routine 10/30/2024 6:47 EST ESRD (end stage renal disease) ([facility]) PROFILE IRON STUDIES (INCLUDES IRON, IBC, AND FERRITIN) Routine 10/30/2024 6:47 EST ESRD (end stage renal disease) ([facility]) HEMODIALYSIS Routine 10/30/2024 6:22 EST ESRD (end stage renal disease) ([facility]) HEMODIALYSIS Routine 10/27/2024 6:24 EST ESRD (end stage renal disease) ([facility]) POCT GLUCOSE, INTERFACED Routine 10/26/2024 10:50 EST POCT GLUCOSE, INTERFACED Routine 10/26/2024 10:28 EST POCT GLUCOSE, INTERFACED Routine 10/26/2024 9:41 EST POCT GLUCOSE, INTERFACED Routine 10/26/2024 9:16 EST POCT GLUCOSE, INTERFACED Routine 10/26/2024 8:25 EST POCT GLUCOSE, INTERFACED Routine 10/26/2024 7:58 EST POCT GLUCOSE, INTERFACED Routine 10/26/2024 7:08 EST POCT GLUCOSE, INTERFACED Routine 10/26/2024 6:37 EST COMPLETE BLOOD COUNT Routine 10/26/2024 6:26 EST ESRD (end stage renal disease) ([facility]) HEMODIALYSIS Routine 10/26/2024 6:19 EST ESRD (end stage renal disease) ([facility]) POCT GLUCOSE, INTERFACED Routine 10/23/2024 10:34 EST POCT GLUCOSE, INTERFACED Routine 10/23/2024 10:12 EST POCT GLUCOSE, INTERFACED Routine 10/23/2024 9:24 EST POCT GLUCOSE, INTERFACED Routine 10/23/2024 9:04 EST HEMODIALYSIS Routine 10/23/2024 6:26 EST ESRD (end stage renal disease) ([facility]) POCT GLUCOSE, INTERFACED Routine 10/20/2024 10:41 EST POCT GLUCOSE, INTERFACED Routine 10/20/2024 10:13 EST POCT GLUCOSE, INTERFACED Routine 10/20/2024 9:28 EST POCT GLUCOSE, INTERFACED Routine 10/20/2024 9:08 EST HEMODIALYSIS Routine 10/20/2024 6:22 EST ESRD (end stage renal disease) ([facility]) POCT GLUCOSE, INTERFACED Routine 10/19/2024 11:07 EST POCT GLUCOSE, INTERFACED Routine 10/19/2024 10:46 EST POCT GLUCOSE, INTERFACED Routine 10/19/2024 9:02 EST POCT GLUCOSE, INTERFACED Routine 10/19/2024 7:18 EST COMPLETE BLOOD COUNT Routine 10/19/2024 6:47 EST ESRD (end stage renal disease) ([facility]) HEMODIALYSIS Routine 10/19/2024 6:39 EST ESRD (end stage renal disease) ([facility]) POCT GLUCOSE, INTERFACED Routine 10/16/2024 11:10 EST POCT GLUCOSE, INTERFACED Routine 10/16/2024 10:36 EST POCT GLUCOSE, INTERFACED Routine 10/16/2024 10:25 EST POCT GLUCOSE, INTERFACED Routine 10/16/2024 9:36 EST POCT GLUCOSE, INTERFACED Routine 10/16/2024 9:15 EST HEMODIALYSIS Routine 10/16/2024 6:24 EST ESRD (end stage renal disease) ([facility]) POCT GLUCOSE, INTERFACED Routine 10/13/2024 10:41 EST POCT GLUCOSE, INTERFACED Routine 10/13/2024 10:21 EST POCT GLUCOSE, INTERFACED Routine 10/13/2024 9:02 EST HEMODIALYSIS Routine 10/13/2024 6:20 EST ESRD (end stage renal disease) ([facility]) POCT GLUCOSE, INTERFACED Routine 10/11/2024 11:02 EST POCT GLUCOSE, INTERFACED Routine 10/11/2024 10:45 EST POCT GLUCOSE, INTERFACED Routine 10/11/2024 9:29 EST POCT GLUCOSE, INTERFACED Routine 10/11/2024 9:12 EST COMPLETE BLOOD COUNT Routine 10/11/2024 6:30 EST ESRD (end stage renal disease) ([facility]) HEMODIALYSIS Routine 10/11/2024 6:21 EST ESRD (end stage renal disease) ([facility]) POCT GLUCOSE, INTERFACED Routine 10/09/2024 11:10 EST POCT GLUCOSE, INTERFACED Routine 10/09/2024 10:50 EST POCT GLUCOSE, INTERFACED Routine 10/09/2024 9:40 EST POCT GLUCOSE, INTERFACED Routine 10/09/2024 9:19 EST HEMODIALYSIS Routine 10/09/2024 6:20 EST ESRD (end stage renal disease) ([facility]) POCT GLUCOSE, INTERFACED Routine 10/06/2024 10:35 EST POCT GLUCOSE, INTERFACED Routine 10/06/2024 9:05 EST HEMODIALYSIS Routine 10/06/2024 6:24 EST ESRD (end stage renal disease) ([facility]) POCT GLUCOSE, INTERFACED Routine 10/04/2024 10:22 EST POCT GLUCOSE, INTERFACED Routine 10/04/2024 9:41 EST POCT GLUCOSE, INTERFACED Routine 10/04/2024 9:22 EST POCT GLUCOSE, INTERFACED Routine 10/04/2024 8:25 EST POCT GLUCOSE, INTERFACED Routine 10/04/2024 8:03 EST POCT GLUCOSE, INTERFACED Routine 10/04/2024 7:14 EST POCT GLUCOSE, INTERFACED Routine 10/04/2024 6:52 EST COMPLETE BLOOD COUNT Routine 10/04/2024 6:37 EST ESRD (end stage renal disease) ([facility]) HEMODIALYSIS Routine 10/04/2024 6:30 EST ESRD (end stage renal disease) ([facility]) POCT GLUCOSE, INTERFACED Routine 10/02/2024 10:48 EST POCT GLUCOSE, INTERFACED Routine 10/02/2024 9:53 EST POCT GLUCOSE, INTERFACED Routine 10/02/2024 9:33 EST HEMODIALYSIS Routine 10/02/2024 6:27 EST ESRD (end stage renal disease) ([facility]) POCT GLUCOSE, INTERFACED Routine 09/29/2024 10:24 EST POCT GLUCOSE, INTERFACED Routine 09/29/2024 9:36 EST POCT GLUCOSE, INTERFACED Routine 09/29/2024 9:14 EST HEMODIALYSIS Routine 09/29/2024 6:27 EST ESRD (end stage renal disease) ([facility]) POCT GLUCOSE, INTERFACED Routine 09/27/2024 11:11 EST POCT GLUCOSE, INTERFACED Routine 09/27/2024 10:48 EST POCT GLUCOSE, INTERFACED Routine 09/27/2024 9:02 EST COMPLETE BLOOD COUNT Routine 09/27/2024 6:41 EST ESRD (end stage renal disease) ([facility]) HEMODIALYSIS Routine 09/27/2024 6:18 EST ESRD (end stage renal disease) ([facility]) POSTDIALYSIS BUN WITH URR CALCULATION Routine 09/25/2024 11:14 EST ESRD (end stage renal disease) ([facility]) POCT GLUCOSE, INTERFACED Routine 09/25/2024 11:07 EST POCT GLUCOSE, INTERFACED Routine 09/25/2024 10:33 EST FERRITIN Routine 09/25/2024 6:39 EST ESRD (end stage renal disease) ([facility]) TRANSFERRIN SATURATION Routine 09/25/2024 6:39 EST ESRD (end stage renal disease) ([facility]) DIALYSIS ROUTINE - DIALYSIS ONLY (BUN, K, NA, CL, CO2, SANJEEV, ALB, MG, PHOS, ALKP, AST) Routine 09/25/2024 6:39 EST ESRD (end stage renal disease) ([facility]) PROFILE IRON STUDIES (INCLUDES IRON, IBC, AND FERRITIN) Routine 09/25/2024 6:39 EST ESRD (end stage renal disease) ([facility]) HEMODIALYSIS Routine 09/25/2024 6:31 EST ESRD (end stage renal disease) ([facility]) POCT GLUCOSE, INTERFACED Routine 09/22/2024 10:47 EST POCT GLUCOSE, INTERFACED Routine 09/22/2024 8:33 EST HEMODIALYSIS Routine 09/22/2024 6:25 EST ESRD (end stage renal disease) ([facility]) COMPLETE BLOOD COUNT Routine 09/20/2024 7:05 EST ESRD (end stage renal disease) ([facility]) HEMODIALYSIS Routine 09/20/2024 6:26 EST ESRD (end stage renal disease) ([facility]) POCT GLUCOSE, INTERFACED Routine 09/18/2024 11:45 EST POCT GLUCOSE, INTERFACED Routine 09/18/2024 11:31 EST POCT GLUCOSE, INTERFACED Routine 09/18/2024 11:25 EST POCT GLUCOSE, INTERFACED Routine 09/18/2024 11:19 EST POCT GLUCOSE, INTERFACED Routine 09/18/2024 11:10 EST HEMODIALYSIS Routine 09/18/2024 6:31 EST ESRD (end stage renal disease) ([facility]) HEMODIALYSIS Routine 09/15/2024 6:16 EST ESRD (end stage renal disease) ([facility]) COMPLETE BLOOD COUNT Routine 09/13/2024 6:37 EST ESRD (end stage renal disease) ([facility]) HEMODIALYSIS Routine 09/13/2024 6:32 EST ESRD (end stage renal disease) ([facility]) POCT GLUCOSE, INTERFACED Routine 09/11/2024 10:44 EST HEMODIALYSIS Routine 09/11/2024 6:23 EST ESRD (end stage renal disease) ([facility]) HEMODIALYSIS Routine 09/08/2024 6:23 EST ESRD (end stage renal disease) ([facility]) COMPLETE BLOOD COUNT Routine 09/06/2024 6:33 EST ESRD (end stage renal disease) ([facility]) HEMODIALYSIS Routine 09/06/2024 6:29 EST ESRD (end stage renal disease) ([facility]) HEMODIALYSIS Routine 09/04/2024 6:25 EST ESRD (end stage renal disease) ([facility]) LIPID PROFILE (INCLUDES CHOLESTEROL, TRIGLYCERIDES, HDL, LDL) Add-On 12/24/2023 12:33 EST HEMOGLOBIN A1C Add-On 11/07/2023 7:57 EST from Last 3 Months or Most Recently Relevant to Health Maintenance Results * (ABNORMAL) COMPLETE BLOOD COUNT (11/29/2024 6:34 EST) Only the most recent of13 resultswithin the time period is included. WBC 10.96(H) 4.00 - 10.40 K/cmm 11/29/2024 21:30 [facility] RBC 3.60(L) 4.36 - 5.78 M/cmm 11/29/2024 21:30 [facility] Hemoglobin 10.9(L) 13.8 - 17.3 g/dL 11/29/2024 21:30 [facility] HCT 34.1(L) 39.5 - 50.2 % 11/29/2024 21:30 [facility] MCV 95 81 - 95 fL 11/29/2024 21:30 [facility] MCH 30.3 27.6 - 33.0 pg 11/29/2024 21:30 [facility] MCHC 32.0(L) 32.8 - 36.4 g/dL 11/29/2024 21:30 [facility] RDW-CV 16.1(H) <14.2 % 11/29/2024 21:30 [facility] RDW-SD 56.0(H) <46.0 fl 11/29/2024 21:30 [facility] PLT 244 141 - 377 K/cmm 11/29/2024 21:30 [facility] MPV 12.0 9.5 - 12.7 fL 11/29/2024 21:30 [facility] Blood VENOUS BLOOD / Unknown Venipuncture / Unknown 11/29/2024 6:34 EST 11/29/2024 6:34 EST us Carlota Jin MD HEMATOLOGY & PF4 ORDERABL ES Final Result [facility] [address] [place] [address] * (ABNORMAL) POSTDIALYSIS BUN WITH URR CALCULATION (11/27/2024 11:08 EST) Only the most recent of3 resultswithin the time period is included. BUN, Postdialysis 28(H) 10 - 26 mg/dL 11/27/2024 22:36 [facility] Urea Reduction Rate 69.2 Not Established % 11/27/2024 22:36 [facility] Comment: NOTE: Reference range not established for Urea Reduction Rate. BUN 91(H) 10 - 26 mg/dL 11/27/2024 22:36 [facility] Blood VENOUS BLOOD / Unknown Venipuncture / Unknown 11/27/2024 11:08 EST 11/27/2024 11:08 EST Carlota Jin MD CHEMISTRY & BLOOD GAS ORD ERABLES Final Result Performing Organization Address [facility] de Phone Number [facility] [address] [place] [address] * (ABNORMAL) TRANSFERRIN SATURATION (11/27/2024 6:35 EST) Only the most recent of3 resultswithin the time period is included. Iron 33(L) 49 - 181 ??g/dL 11/27/2024 22:37 EST [facility] Iron Binding Capacity 212(L) 240 - 450 ??g/dL 11/27/2024 22:37 EST [facility] Transferrin Saturation 16 15 - 45 % 11/27/2024 22:37 EST [facility] Blood VENOUS BLOOD / Unknown Venipuncture / Unknown 11/27/2024 6:35 EST 11/27/2024 6:35 EST Carlota Jin MD CHEMISTRY & BLOOD GAS ORD ERABLES Final Result Performing Organization Address [facility] Co de Phone Number [facility] [address] [place] [address] * (ABNORMAL) DIALYSIS ROUTINE - DIALYSIS ONLY (BUN, K, NA, CL, CO2, SANJEEV, ALB, MG, PHOS, ALKP, AST) (11/27/2024 6:35 EST) Only the most recent of3 resultswithin the time period is included. Sodium 132(L) 136 - 145 mmol/L 11/27/2024 22:35 EST [facility] Potassium 8.3(H) 3.5 - 5.0 mmol/L 11/27/2024 22:35 EST [facility] Chloride 98 96 - 110 mmol/L 11/27/2024 22:35 EST [facility] CO2 Total 19(L) 22 - 32 mmol/L 11/27/2024 22:35 [facility] Calcium 8.0(L) 8.5 - 10.5 mg/dL 11/27/2024 22:35 [facility] Albumin 3.5 3.4 - 4.9 g/dL 11/27/2024 22:35 [facility] Phosphorus 9.5(H) 2.5 - 4.5 mg/dL 11/27/2024 22:35 [facility] Calcium Phos Product 76.0 See Note mg/dL 11/27/2024 22:35 [facility] Comment: NOTE: Reference range not established BUN, Predialysis 91(H) 10 - 26 mg/dL 11/27/2024 22:35 [facility] AST 20 15 - 46 U/L 11/27/2024 22:35 [facility] Alkaline Phosphatase 89 38 - 126 U/L 11/27/2024 22:35 [facility] Magnesium 2.4 1.7 - 2.8 mg/dL 11/27/2024 22:35 [facility] Anion Gap 15(H) 5 - 14 mmol/L 11/27/2024 22:35 [facility] Calculated Calcium 8.4(L) 8.9 - 10.5 mg/dL 11/27/2024 22:35 [facility] Blood VENOUS BLOOD / Unknown Venipuncture / Unknown 11/27/2024 6:35 EST 11/27/2024 6:35 EST us Carlota Jin MD CHEMISTRY & BLOOD GAS ORD ERABLES Final Result [facility] [address] [place] [address] * (ABNORMAL) FERRITIN (11/27/2024 6:35 EST) Only the most recent of3 resultswithin the time period is included. Ferritin 393(H) 22 - 322 ng/mL 11/27/2024 23:02 [facility] Blood VENOUS BLOOD / Unknown Venipuncture / Unknown 11/27/2024 6:35 EST 11/27/2024 6:35 EST Carlota Jin MD CHEMISTRY & BLOOD GAS ORD ERABLES Final Result Performing Organization Address City/[facility]/ZIP Co de Phone Number [facility] [address] [place] [address] * POCT GLUCOSE, INTERFACED (11/20/2024 9:32 EST) Only the most recent of69 resultswithin the time period is included. Glucose, POC 93 70 - 100 mg/dL 11/21/2024 8:29 EST [facility] HN LAB POC COMMENT (GLUCOSE) Test Performed by Nursing Services 11/21/2024 8:29 EST [facility] Blood CAPILLARY BLOOD / Unknown 11/20/2024 9:32 EST 11/21/2024 8:29 EST Carlota Jin MD POINT OF CARE TEST ORDERA BLES Final Result Performing Organization Address [facility]/ZIP Co de Phone Number [facility] [address] [place] [address] * (ABNORMAL) VITAMIN D (25,OH) (10/30/2024 6:47 EST) 25OH Vitamin D Tot 28(L) 30 - 100 ng/mL 10/31/2024 10:53 EST [facility] Comment: Vitamin D 25,OH Interpretive Ranges: Deficiency: ??<10.0 ng/mL Insufficiency: ??10.0 - 30.0 ng/mL Sufficiency: ??30.0 - 100.0 ng/mL Toxicity: ??>100.0 ng/mL Blood VENOUS BLOOD / Unknown Venipuncture / Unknown 10/30/2024 6:47 EST 10/30/2024 6:47 EST Carlota Jin MD CHEMISTRY & BLOOD GAS ORD ERABLES Final Result Performing Organization Address City/[facility]/ZIP Co de Phone Number [facility] [address], [place] [id number] * DIALYSIS HEPATITIS- DIALYSIS USE ONLY (10/30/2024 6:47 EST) Hep B Surface Ag Negative Negative 10/31/19 11:36 [facility] Hep B Surface Ab, Quantitative 140.6 See Note mIU/mL 10/31/2024 11:36 [facility] Comment: Reference Range for Hep B Surface Ab, Quant: Positive: >= 10.0 mIU/mL Negative: ??< 10.0 mIU/mL Patient is presumed to be immune to infection with Hepatitis B Virus. Hep B Surface Ab, Qualitative Positive See Note 10/31/2024 11:36 [facility] Comment: Reference Range for Hep B Surface Ab, Qual: Unvaccinated: ??Negative Vaccinated: ??Positive Hepatitis B Core Ab, Total Negative Negative 10/31/2024 11:36 [facility] Hep C Antibody Negative Negative 10/31/2024 11:36 [facility] Blood VENOUS BLOOD / Unknown Venipuncture / Unknown 10/30/2024 6:47 EST 10/30/2024 6:47 EST Carlota Jin MD CHEMISTRY & BLOOD GAS ORD ERABLES Final Result [facility] [address] [place] [address] * (ABNORMAL) PTH INTACT (10/30/2024 6:47 EST) Intact PTH 641.9(H) 19.0 - 88.0 pg/mL 10/30/2024 23:18 [facility] Blood VENOUS BLOOD / Unknown Venipuncture / Unknown 10/30/2024 6:47 EST 10/30/2024 6:47 EST Carlota Jin MD CHEMISTRY & BLOOD GAS ORD ERABLES Final Result Performing Organization Address City/[facility]/ZIP Co de Phone Number [facility] [address] [place] [address] * FOLATE (10/30/2024 6:47 EST) [facility] Folate >24.0 See Note ng/mL 10/30/2024 23:12 EST [facility] Comment: Reference Ranges for Folate: Deficient: ?< 3.4 ng/mL Indeterminate: ??3.4 - 5.4 ng/mL Normal: ? > 5.4 ng/mL The results of this assay can be falsely elevated due to the consumption of Biotin. Blood VENOUS BLOOD / Unknown Venipuncture / Unknown 10/30/2024 6:47 EST 10/30/2024 6:47 EST Carlota Jin MD CHEMISTRY & BLOOD GAS ORD ERABLES Final Result Performing Organization Address [facility] Co de Phone Number [facility] [address] [place] [address] * VITAMIN B12 (10/30/2024 6:47 EST) [facility] Vitamin B12 342 211 - 911 pg/mL 10/30/2024 23:31 EST [facility] Blood VENOUS BLOOD / Unknown Venipuncture / Unknown 10/30/2024 6:47 EST 10/30/2024 6:47 EST Carlota Jin MD CHEMISTRY & BLOOD GAS ORD ERABLES Final Result Performing Organization Address City/[facility]/ZIP Co de Phone Number [facility] [address] [place] [address] * (ABNORMAL) LIPID PROFILE (INCLUDES CHOLESTEROL, TRIGLYCERIDES, HDL, LDL) (12/24/2023 12:33 EST) Cholesterol 94 <200 mg/dL 12/24/2023 15:22 [facility] Comment:Note that therapeuti c goals will differ between patients based on cardiac risk factors and current medical therapy. HDL 40 >=40 mg/dl 12/24/2023 15:22 [facility] Comment:Note that therapeuti c goals will differ between patients based on cardiac risk factors and current medical therapy. LDL, Calculated <20 <160 mg/dL 15:22 [facility] Comment: Note that therapeutic goals will differ between patients based on cardiac risk factors and current medical therapy. Calculated LDL invalid (<20 mg/dL) Direct LDL measurement added by reflex. Triglyceride 217(H) <=150 mg/dL 12/24/2023 15:22 [facility] Comment:Note that therapeuti c goals will differ between patients based on cardiac risk factors and current medical therapy. Chol/HDL Ratio 2.4 See Note 12/24/2023 15:22 [facility] Comment:No reference range h as been established for CHOL/HDL ratio. Non HDL Cholesterol 54 <160 mg/dL 12/24/2023 15:22 [facility] Comment:Note that therapeuti c goals will differ between patients based on cardiac risk factors and current medical therapy. Blood VENOUS BLOOD / Unknown Venipuncture / Unknown 12/24/2023 12:33 EST 12/24/2023 13:19 EST us Sourav Kilgore PA-C CHEMISTRY & BLOOD GAS [place] Final Result [facility] [address] [place] [address] * (ABNORMAL) HEMOGLOBIN A1C (11/07/2023 7:57 EST) Hemoglobin A1c 11.6(H) <5.7 % 11/08/2023 11:44 [facility] Comment: Glycemic Status References: Normal: ??<5.7% Pre-Diabetes: ??5.7% - 6.4% Diagnostic of Diabetes: ??> or = 6.5% (if confirmed) Est Avg Glucose 286 mg/dL 4 11:44 EST [facility] Comment:The eAG represents t he A1c result expressed as average glucose in mg/dL. 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 Default/Not Discussed * Full Code Date Activated Date Inactivated Comments 12/20/2023 0:18 12/24/2023 15:26 Question Answer Comments When the patient has NO PULSE: Full Code / CPR Who Made the Decision? Patient * Full Code Date Activated Date Inactivated Comments 11/07/2023 6:03 11/10/2023 20:19 Question Answer Comments When the patient has NO PULSE: Full Code / CPR Who Made the Decision? Default/Not Discussed Care Teams Manager Culture Relationship Specialty Start Date End Date Ken Greer MD [address] [place] [address] PCP - General 07/07/23 Kiel Powers Heading Matcher And Assembler Nephrology 05/31/24
--- OUTSIDE RECORDS SUMMARY | 2024-12-05 11:52 | XMS_ITS ---
Author Organization [facility] Address [address] [place] [address] Care Team Providers Care Contract Runner Name Role Phone Ken Greer MD Primary Care Provider [phone] Kiel Powers Unavailable Unavailable Dialysis Plan of Treatment Dialysis Prescription As-Of Date Prescribed Dry Weight Primary Se tting 08/14/2024 75.5 kg (166 lb 7.2 oz) [facility] Instructions Modality Prescribed Duration (hours) Frequency Blood Flow Rate Conventional Hemodialysis 4:00 3 times a week 400 mL/min Dialysis Access Type Location Dialysate Sodium Level Potassium Level Calcium Level Bicarbonate Level 33 mEq/L from Last 30 Days Dialysis Access Sites Type Status Location Placement Date Removal Da te Arteriovenous fistula Active Left Upper Arm - Anterior 02/13/2019 Peripheral IV 05/30/24 0902 Right Antecubital Inactive Right Antecubital Fossa 05/30/2024 0 05/31/2024 Peripheral IV 12/20/23 1828 Posterior;Right Forearm Inactive Right Forearm - Posterior 12/20/2023 12/24/2023 Peripheral IV 12/19/23 1755 Right Antecubital Inactive Right Antecubital Fossa 12/19/2023 0 12/20/2023 Peripheral IV 12/19/23 1754 Right Antecubital Inactive Right Antecubital Fossa 12/19/2023 0 12/20/2023 Peripheral IV 11/10/23 0648 Anterior;Proximal;Right Forearm Inactive Right Forearm - Anterior, Proximal 11/10/2023 11/10/2023 Peripheral IV 11/09/23 0907 Right Antecubital Inactive Right Antecubital Fossa 11/09/2023 0 11/10/2023 Peripheral IV 11/07/23 1207 Anterior;Right Upper Arm Inactive Right Upper Arm - Anterior 11/07/2023 11/09/2023 Peripheral IV 07/08/23 0900 Anterior;Proximal;Right;L ateral Forearm Inactive Right Forearm - Anterior, Proximal 07/08/2023 07/08/2023 Historical Dialysis Procedures Date BP Pre BP Post Weight Pre Weight Post Treatment Duration Start Time End Time Achieved BFR Vascular Access 025 159/59 sitting 134/102 sitting 83.1 78.7 4:02 06:35 10:37 AVF Only 025 163/82 sitting 154/75 sitting 82.2 78 4:01 06:39 10:40 AVF Only 025 176/61 sitting 176/61 sitting 81.5 79 2:38 06:41 09:19 AVF Only 025 196/70 sitting 163/88 sitting 80.8 75 4:05 06:41 10:46 AVF Only 025 116/91 sitting 192/61 sitting 78.8 75.1 4:01 06:36 10:37 AVF Only 025 205/73 sitting 107/78 sitting 80.5 76.2 4:01 06:39 10:40 AVF Only 025 184/77 sitting 155/64 sitting 81.2 77.3 4:01 06:36 10:37 AVF Only 025 167/111 sitting 169/68 sitting 80.5 76.4 4:14 06:35 10:49 AVF Only 025 164/109 sitting 186/84 sitting 81.2 77.2 4:03 06:39 10:42 AVF Only 025 174/48 sitting 114/87 sitting 81.8 77.6 4:02 06:38 10:40 AVF Only 025 208/90 sitting 192/60 sitting 80.4 76.2 4:14 06:37 10:51 AVF Only 025 155/87 sitting 189/102 sitting 81.3 76.9 4:05 06:40 10:45 AVF Only 025 135/45 sitting 154/63 sitting 81 76.7 4:01 06:46 10:47 AVF Only from Last 30 Days Procedures Procedure Name Priority Date/Time Associated Diagnosis Comments HEMODIALYSIS Routine 12/04/2024 6:21 EST ESRD (end stage renal disease) ([facility]) HEMODIALYSIS Routine 12/01/2024 6:23 EST ESRD (end stage renal disease) ([facility]) COMPLETE BLOOD COUNT Routine 11/29/2024 6:34 EST ESRD (end stage renal disease) ([facility]) HEMODIALYSIS Routine 11/29/2024 6:27 EST ESRD (end stage renal disease) ([facility]) POSTDIALYSIS BUN WITH URR CALCULATION Routine 11/27/2024 11:08 EST ESRD (end stage renal disease) ([facility]) FERRITIN Routine 11/27/2024 6:35 EST ESRD (end stage renal disease) ([facility]) TRANSFERRIN SATURATION Routine 11/27/2024 6:35 EST ESRD (end stage renal disease) ([facility]) DIALYSIS ROUTINE - DIALYSIS ONLY (BUN, K, NA, CL, CO2, SANJEEV, ALB, MG, PHOS, ALKP, AST) Routine 11/27/2024 6:35 EST ESRD (end stage renal disease) ([facility]) PROFILE IRON STUDIES (INCLUDES IRON, IBC, AND FERRITIN) Routine 11/27/2024 6:35 EST ESRD (end stage renal disease) ([facility]) HEMODIALYSIS Routine 11/27/2024 6:19 EST ESRD (end stage renal disease) ([facility]) HEMODIALYSIS Routine 11/24/2024 6:25 EST ESRD (end stage renal disease) ([facility]) COMPLETE BLOOD COUNT Routine 11/22/2024 6:32 EST ESRD (end stage renal disease) ([facility]) HEMODIALYSIS Routine 11/22/2024 6:25 EST ESRD (end stage renal disease) ([facility]) POCT GLUCOSE, INTERFACED Routine 11/20/2024 9:32 EST HEMODIALYSIS Routine 11/20/2024 6:21 EST ESRD (end stage renal disease) ([facility]) HEMODIALYSIS Routine 11/17/2024 6:23 EST ESRD (end stage renal disease) ([facility]) COMPLETE BLOOD COUNT Routine 11/15/2024 6:33 EST ESRD (end stage renal disease) ([facility]) HEMODIALYSIS Routine 11/15/2024 6:25 EST ESRD (end stage renal disease) ([facility]) HEMODIALYSIS Routine 11/13/2024 6:20 EST ESRD (end stage renal disease) ([facility]) HEMODIALYSIS Routine 11/10/2024 6:18 EST ESRD (end stage renal disease) ([facility]) COMPLETE BLOOD COUNT Routine 11/08/2024 6:32 EST ESRD (end stage renal disease) ([facility]) HEMODIALYSIS Routine 11/08/2024 6:25 EST ESRD (end stage renal disease) ([facility]) HEMODIALYSIS Routine 11/06/2024 6:22 EST ESRD (end stage renal disease) ([facility]) POCT GLUCOSE, INTERFACED Routine 11/03/2024 10:33 EST POCT GLUCOSE, INTERFACED Routine 11/03/2024 8:39 EST POCT GLUCOSE, INTERFACED Routine 11/03/2024 7:27 EST POCT GLUCOSE, INTERFACED Routine 11/03/2024 6:59 EST HEMODIALYSIS Routine 11/03/2024 6:20 EST ESRD (end stage renal disease) ([facility]) COMPLETE BLOOD COUNT Routine 11/01/2024 6:27 EST ESRD (end stage renal disease) ([facility]) HEMODIALYSIS Routine 11/01/2024 6:17 EST ESRD (end stage renal disease) ([facility]) POSTDIALYSIS BUN WITH URR CALCULATION Routine 10/30/2024 11:05 EST ESRD (end stage renal disease) ([facility]) FERRITIN Routine 10/30/2024 6:47 EST ESRD (end stage renal disease) ([facility]) TRANSFERRIN SATURATION Routine 10/30/2024 6:47 EST ESRD (end stage renal disease) ([facility]) VITAMIN D (25,[place]) Routine 10/30/2024 6:4 7 EST ESRD (end stage renal disease) ([facility]) VITAMIN B12 Routine 10/30/2024 6:47 EST ESRD (end stage renal disease) ([facility]) FOLATE Routine 10/30/2024 6:47 EST ESRD (end stage renal disease) ([facility]) DIALYSIS HEPATITIS- DIALYSIS USE ONLY Routine 10/30/2024 6:47 EST ESRD (end stage renal disease) ([facility]) PTH INTACT Routine 10/30/2024 6:47 EST ESRD (end stage renal disease) ([facility]) Secondary hyperparathyroidism ([facility]) DIALYSIS ROUTINE - DIALYSIS ONLY (BUN, K, NA, CL, CO2, SANJEEV, ALB, MG, PHOS, ALKP, AST) Routine 10/30/2024 6:47 EST ESRD (end stage renal disease) ([facility]) PROFILE IRON STUDIES (INCLUDES IRON, IBC, AND FERRITIN) Routine 10/30/2024 6:47 EST ESRD (end stage renal disease) ([facility]) HEMODIALYSIS Routine 10/30/2024 6:22 EST ESRD (end stage renal disease) ([facility]) HEMODIALYSIS Routine 10/27/2024 6:24 EST ESRD (end stage renal disease) ([facility]) POCT GLUCOSE, INTERFACED Routine 10/26/2024 10:50 EST [...] 6:26 EST ESRD (end stage renal disease) ([facility]) HEMODIALYSIS Routine 10/26/2024 6:19 EST ESRD (end stage renal disease) ([facility]) POCT GLUCOSE, INTERFACED Routine 10/23/2024 10:34 EST POCT GLUCOSE, INTERFACED Routine 10/23/2024 10:12 EST POCT GLUCOSE, INTERFACED Routine 10/23/2024 9:24 EST POCT GLUCOSE, INTERFACED Routine 10/23/2024 9:04 EST HEMODIALYSIS Routine 10/23/2024 6:26 EST ESRD (end stage renal disease) ([facility]) POCT GLUCOSE, INTERFACED Routine 10/20/2024 10:41 EST POCT GLUCOSE, INTERFACED Routine 10/20/2024 10:13 EST POCT GLUCOSE, INTERFACED Routine 10/20/2024 9:28 EST POCT GLUCOSE, INTERFACED Routine 10/20/2024 9:08 EST HEMODIALYSIS Routine 10/20/2024 6:22 EST ESRD (end stage renal disease) ([facility]) POCT GLUCOSE, INTERFACED Routine 10/19/2024 11:07 EST POCT GLUCOSE, INTERFACED Routine 10/19/2024 10:46 EST POCT GLUCOSE, INTERFACED Routine 10/19/2024 9:02 EST POCT GLUCOSE, INTERFACED Routine 10/19/2024 7:18 EST COMPLETE BLOOD COUNT Routine 10/19/2024 6:47 EST ESRD (end stage renal disease) ([facility]) HEMODIALYSIS Routine 10/19/2024 6:39 EST ESRD (end stage renal disease) ([facility]) POCT GLUCOSE, INTERFACED Routine 10/16/2024 11:10 EST POCT GLUCOSE, INTERFACED Routine 10/16/2024 10:36 EST POCT GLUCOSE, INTERFACED Routine 10/16/2024 10:25 EST POCT GLUCOSE, INTERFACED Routine 10/16/2024 9:36 EST POCT GLUCOSE, INTERFACED Routine 10/16/2024 9:15 EST HEMODIALYSIS Routine 10/16/2024 6:24 EST ESRD (end stage renal disease) ([facility]) POCT GLUCOSE, INTERFACED Routine 10/13/2024 10:41 EST POCT GLUCOSE, INTERFACED Routine 10/13/2024 10:21 EST POCT GLUCOSE, INTERFACED Routine 10/13/2024 9:02 EST HEMODIALYSIS Routine 10/13/2024 6:20 EST ESRD (end stage renal disease) ([facility]) POCT GLUCOSE, INTERFACED Routine 10/11/2024 11:02 EST POCT GLUCOSE, INTERFACED Routine 10/11/2024 10:45 EST POCT GLUCOSE, INTERFACED Routine 10/11/2024 9:29 EST POCT GLUCOSE, INTERFACED Routine 10/11/2024 9:12 EST COMPLETE BLOOD COUNT Routine 10/11/2024 6:30 EST ESRD (end stage renal disease) ([facility]) HEMODIALYSIS Routine 10/11/2024 6:21 EST ESRD (end stage renal disease) ([facility]) POCT GLUCOSE, INTERFACED Routine 10/09/2024 11:10 EST POCT GLUCOSE, INTERFACED Routine 10/09/2024 10:50 EST POCT GLUCOSE, INTERFACED Routine 10/09/2024 9:40 EST POCT GLUCOSE, INTERFACED Routine 10/09/2024 9:19 EST HEMODIALYSIS Routine 10/09/2024 6:20 EST ESRD (end stage renal disease) ([facility]) POCT GLUCOSE, INTERFACED Routine 10/06/2024 10:35 EST POCT GLUCOSE, INTERFACED Routine 10/06/2024 9:05 EST HEMODIALYSIS Routine 10/06/2024 6:24 EST ESRD (end stage renal disease) ([facility]) POCT GLUCOSE, INTERFACED Routine 10/04/2024 10:22 EST POCT GLUCOSE, INTERFACED Routine 10/04/2024 9:41 EST POCT GLUCOSE, INTERFACED Routine 10/04/2024 9:22 EST POCT GLUCOSE, INTERFACED Routine 10/04/2024 8:25 EST POCT GLUCOSE, INTERFACED Routine 10/04/2024 8:03 EST POCT GLUCOSE, INTERFACED Routine 10/04/2024 7:14 EST POCT GLUCOSE, INTERFACED Routine 10/04/2024 6:52 EST COMPLETE BLOOD COUNT Routine 10/04/2024 6:37 EST ESRD (end stage renal disease) ([facility]) HEMODIALYSIS Routine 10/04/2024 6:30 EST ESRD (end stage renal disease) ([facility]) POCT GLUCOSE, INTERFACED Routine 10/02/2024 10:48 EST POCT GLUCOSE, INTERFACED Routine 10/02/2024 9:53 EST POCT GLUCOSE, INTERFACED Routine 10/02/2024 9:33 EST HEMODIALYSIS Routine 10/02/2024 6:27 EST ESRD (end stage renal disease) ([facility]) POCT GLUCOSE, INTERFACED Routine 09/29/2024 10:24 EST POCT GLUCOSE, INTERFACED Routine 09/29/2024 9:36 EST POCT GLUCOSE, INTERFACED Routine 09/29/2024 9:14 EST HEMODIALYSIS Routine 09/29/2024 6:27 EST ESRD (end stage renal disease) ([facility]) POCT GLUCOSE, INTERFACED Routine 09/27/2024 11:11 EST POCT GLUCOSE, INTERFACED Routine 09/27/2024 10:48 EST POCT GLUCOSE, INTERFACED Routine 09/27/2024 9:02 EST COMPLETE BLOOD COUNT Routine 09/27/2024 6:41 EST ESRD (end stage renal disease) ([facility]) HEMODIALYSIS Routine 09/27/2024 6:18 EST ESRD (end stage renal disease) ([facility]) POSTDIALYSIS BUN WITH URR CALCULATION Routine 09/25/2024 11:14 EST ESRD (end stage renal disease) ([facility]) POCT GLUCOSE, INTERFACED Routine 09/25/2024 11:07 EST POCT GLUCOSE, INTERFACED Routine 09/25/2024 10:33 EST FERRITIN Routine 09/25/2024 6:39 EST ESRD (end stage renal disease) ([facility]) TRANSFERRIN SATURATION Routine 09/25/2024 6:39 EST ESRD (end stage renal disease) ([facility]) DIALYSIS ROUTINE - DIALYSIS ONLY (BUN, K, NA, CL, CO2, SANJEEV, ALB, MG, PHOS, ALKP, AST) Routine 09/25/2024 6:39 EST ESRD (end stage renal disease) ([facility]) PROFILE IRON STUDIES (INCLUDES IRON, IBC, AND FERRITIN) Routine 09/25/2024 6:39 EST ESRD (end stage renal disease) ([facility]) HEMODIALYSIS Routine 09/25/2024 6:31 EST ESRD (end stage renal disease) ([facility]) POCT GLUCOSE, INTERFACED Routine 09/22/2024 10:47 EST POCT GLUCOSE, INTERFACED Routine 09/22/2024 8:33 EST HEMODIALYSIS Routine 09/22/2024 6:25 EST ESRD (end stage renal disease) ([facility]) COMPLETE BLOOD COUNT Routine 09/20/2024 7:05 EST ESRD (end stage renal disease) ([facility]) HEMODIALYSIS Routine 09/20/2024 6:26 EST ESRD (end stage renal disease) ([facility]) POCT GLUCOSE, INTERFACED Routine 09/18/2024 11:45 EST POCT GLUCOSE, INTERFACED Routine 09/18/2024 11:31 EST POCT GLUCOSE, INTERFACED Routine 09/18/2024 11:25 EST POCT GLUCOSE, INTERFACED Routine 09/18/2024 11:19 EST POCT GLUCOSE, INTERFACED Routine 09/18/2024 11:10 EST HEMODIALYSIS Routine 09/18/2024 6:31 EST ESRD (end stage renal disease) ([facility]) HEMODIALYSIS Routine 09/15/2024 6:16 EST ESRD (end stage renal disease) ([facility]) COMPLETE BLOOD COUNT Routine 09/13/2024 6:37 EST ESRD (end stage renal disease) ([facility]) HEMODIALYSIS Routine 09/13/2024 6:32 EST ESRD (end stage renal disease) ([facility]) POCT GLUCOSE, INTERFACED Routine 09/11/2024 10:44 EST HEMODIALYSIS Routine 09/11/2024 6:23 EST ESRD (end stage renal disease) ([facility]) HEMODIALYSIS Routine 09/08/2024 6:23 EST ESRD (end stage renal disease) ([facility]) COMPLETE BLOOD COUNT Routine 09/06/2024 6:33 EST ESRD (end stage renal disease) ([facility]) HEMODIALYSIS Routine 09/06/2024 6:29 EST ESRD (end stage renal disease) ([facility]) HEMODIALYSIS Routine 09/04/2024 6:25 EST ESRD (end stage renal disease) ([facility]) LIPID PROFILE (INCLUDES CHOLESTEROL, TRIGLYCERIDES, HDL, LDL) Add-On 12/24/2023 12:33 EST HEMOGLOBIN A1C Add-On 11/07/2023 7:57 EST from Last 3 Months or Most Recently Relevant to Health Maintenance Allergies Active Allergy Reactions Criticality Noted Date [...] insulin pen needles 32G x 5/32 Brand: Red[employer]ee. ISS TID and levemir once daily 100 [...] Problem Noted Date Diagnosed Date Diabetes mellitus ([facility]) 05/31/2024 Anxiety and depression 02/22/2024 GERD (gastroesophageal reflux disease) Olecranon bursitis, right elbow 02/22/2024 Osteoarthrosis 02/22/2024 Peripheral neuropathy 02/22/2024 Retinopathy 02/22/2024 Sciatica 02/22/2024 Smoker 02/22/2024 Non-healing open wound of heel 02/18/2024 Atrial fibrillation and flutter ([facility]) 2023 Anemia of chronic renal fail ure, stage 5 ([facility]) [N18.5, D63.1] 12/20/2023 ESRD on hemodialysis ([facility]) 12/20/2023 Type 2 diabetes mellitus wit h chronic kidney disease on chronic dialysis, with long-term current use of insulin ([facility]) [E11.22, N18.6, Z99.2, Z79.4] 11/09/2023 Diabetic foot infection ([facility]) [E11.628, L08. 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) 02/09/2019 Secondary hyperparathyroidism ([facility]) 10/26/19 19 Proteinuria 09/07/2016 Primary hypertension [I10] 07/19/2016 Hyperlipidemia 07/19/2016 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 08/16/2015 Overview (11/13/2022): L4-5 left Hearing loss 07/19/2014 Type II or unspecified type diabetes mellitus with neurological manifestations, uncontrolled(250.62) 07/19/2014 Immunizations Name Administration Dates Next Due Covid-19 [...] = 0.6 oz pur e alcohol) Socially [facility] Utilities Answer Date Recorded In the past 12 months has e [employer], [employer], oil, or water [employer] threatened to shut off services in your [...] any time in the past 12 m [facility], were you homeless or living in a longterm (including now)? No 05/30/2024 [facility] - Inadequate Housing Answer Date Re corded What is your living situation today? I have a [facility] place to live 11/15/[address] you li ve. Do you have problems with any of the following? None of the above 11/15/2024 [facility] - Transportation Answer Date Record ed In the past 12 months, has l ack of reliable transportation kept you from medical appointments, meetings, work or from getting things needed for daily living? No 11/15/2024 [facility] - Personal Safety Answer Date Recor ded How often does anyone, martin lyons family and friends, physically hurt you? Never 11/15/2024 How often does anyone, martin lyons family and friends, insult or talk down to you? Never 11/15/2024 How often does anyone, martin lyons family and friends, threaten you with harm? Never 11/15/2024 How often does anyone, martin lyons family and friends, scream or curse at you? Never 11/15/2024 [facility] - Financial Strain Answer Date Cornel rded How hard is it for you to pa y for the very basics like food, housing, medical care, and heating? Would you say it is: Not hard at all 11/15/2024 [facility] - Employment Answer Date Recorded Do you want help finding or keeping work or a job? I do not need or want help 11/15/2024 [facility] - Social Connections Answer Date Re corded If for any reason you need h elp with day-to-day activities such as bathing, preparing meals, shopping, managing finances, etc., do you get the help you need? I get all the help I need 11/15/2024 How often do you feel lonely or isolated from those around you? Never 11/15/2024 [facility] - Education Answer Date Recorded Do you speak a language other than [place] at [facility]? No 11/15/2024 Do you want help with school or training? For example, starting or completing job training or getting a high school diploma, GED or equivalent. No 11/15/2024 [facility] - Physical Activity Answer Date Rec [...] your living situation today? I have a [facility] place to live 05/30/2024 Think about the [...] Author Yes 05/30/2024 18:25 Daria Baca RN * Are you blind or do you have serious difficulty seeing, even when wearing glasses? Answer Date of Assessment Author No 05/30/2024 18:25 Daria Baca RN * Do you have serious difficulty walking or climbing stairs? (5 years old or older) Answer Date of Assessment Author Yes 05/30/2024 18:25 Daria Baca RN * Do you have difficulty dressing or bathing? (5 years old or older) Answer Date of Assessment Author No 05/30/2024 18:25 Daria Baca RN * Because of a physical, mental, or emotional condition, do you have difficulty doing errands alone such as visiting a doctor's office or shopping? (15 years old or older) Answer Date of Assessment Author Yes 05/30/2024 18:25 EDT Daria Fonseca, RN Mental Status * Because of a physical, mental, or emotional condition, do you have serious difficulty concentrating, remembering, or making decisions? (5 years old or older) Answer Entry Date Author No 05/30/2024 18:25 Daria Baca, VIDYA Results * (ABNORMAL) COMPLETE BLOOD COUNT (11/29/2024 6:34 EST) Only the most recent of13 resultswithin the time period is included. WBC 10.96(H) 4.00 - 10.40 K/cmm 11/29/2024 21:30 [facility] RBC 3.60(L) 4.36 - 5.78 M/cmm 11/29/2024 21:30 [facility] Hemoglobin 10.9(L) 13.8 - 17.3 g/dL 11/29/2024 21:30 [facility] HCT 34.1(L) 39.5 - 50.2 % 11/29/2024 21:30 [facility] MCV 95 81 - 95 fL 11/29/2024 21:30 [facility] MCH 30.3 27.6 - 33.0 pg 11/29/2024 21:30 [facility] MCHC 32.0(L) 32.8 - 36.4 g/dL 11/29/2024 21:30 [facility] RDW-CV 16.1(H) <14.2 % 11/29/2024 21:30 [facility] RDW-SD 56.0(H) <46.0 fl 11/29/2024 21:30 [facility] PLT 244 141 - 377 K/cmm 11/29/2024 21:30 [facility] MPV 12.0 9.5 - 12.7 fL 11/29/2024 21:30 [facility] Blood VENOUS BLOOD / Unknown Venipuncture / Unknown 11/29/2024 6:34 EST 11/29/2024 6:34 EST us Carlota F Jin MD HEMATOLOGY & PF4 ORDERABL ES Final Result Performing Organization Address City/[facility]/ZIP Co de Phone Number [facility] [address] [place] [address] * (ABNORMAL) POSTDIALYSIS BUN WITH URR CALCULATION (11/27/2024 11:08 EST) Only the most recent of3 resultswithin the time period is included. BUN, Postdialysis 28(H) 10 - 26 mg/dL 11/27/2024 22:36 EST [facility] Urea Reduction Rate 69.2 Not Established % 11/27/2024 22:36 EST [facility] Comment: NOTE: Reference range not established for Urea Reduction Rate. BUN 91(H) 10 - 26 mg/dL 11/27/2024 22:36 EST [facility] Blood VENOUS BLOOD / Unknown Venipuncture / Unknown 11/27/2024 11:08 EST 11/27/2024 11:08 EST Carlota Jin MD CHEMISTRY & BLOOD GAS ORD ERABLES Final Result Performing Organization Address City/[facility] Co de Phone Number [facility] [address] [place] [phone] * (ABNORMAL) TRANSFERRIN SATURATION (11/27/2024 6:35 EST) Only the most recent of3 resultswithin the time period is included. Iron 33(L) 49 - 181 ??g/dL 11/27/2024 22:37 EST [facility] Iron Binding Capacity 212(L) 240 - 450 ??g/dL 11/27/2024 22:37 EST [facility] Transferrin Saturation 16 15 - 45 % 11/27/2024 22:37 EST [facility] Blood VENOUS BLOOD / Unknown Venipuncture / Unknown 11/27/2024 6:35 EST 11/27/2024 6:35 EST Carlota Jin MD CHEMISTRY & BLOOD GAS ORD ERABLES Final Result [facility] [address] [place] [address] * (ABNORMAL) DIALYSIS ROUTINE - DIALYSIS ONLY (BUN, K, NA, CL, CO2, SANJEEV, ALB, MG, PHOS, ALKP, AST) (11/27/2024 6:35 EST) Only the most recent of3 resultswithin the time period is included. Sodium 132(L) 136 - 145 mmol/L 11/27/2024 22:35 [facility] Potassium 8.3(H) 3.5 - 5.0 mmol/L 11/27/2024 22:35 [facility] Chloride 98 96 - 110 mmol/L 11/27/2024 22:35 [facility] CO2 Total 19(L) 22 - 32 mmol/L 11/27/2024 22:35 [facility] Calcium 8.0(L) 8.5 - 10.5 mg/dL 11/27/2024 22:35 [facility] Albumin 3.5 3.4 - 4.9 g/dL 11/27/2024 22:35 [facility] Phosphorus 9.5(H) 2.5 - 4.5 mg/dL 11/27/2024 22:35 [facility] Calcium Phos Product 76.0 See Note mg/dL 11/27/2024 22:35 [facility] [facility] Comment: NOTE: Reference range not established BUN, Predialysis 91(H) 10 - 26 mg/dL 11/27/2024 22:35 [facility] AST 20 15 - 46 U/L 11/27/2024 22:35 [facility] Alkaline Phosphatase 89 38 - 126 U/L 11/27/2024 22:35 [facility] Magnesium 2.4 1.7 - 2.8 mg/dL 11/27/2024 22:35 [facility] Anion Gap 15(H) 5 - 14 mmol/L 11/27/2024 22:35 [facility] Calculated Calcium 8.4(L) 8.9 - 10.5 mg/dL 11/27/2024 22:35 EST [facility] Blood VENOUS BLOOD / Unknown Venipuncture / Unknown 11/27/2024 6:35 EST 11/27/2024 6:35 EST us Carlota Jin MD CHEMISTRY & BLOOD GAS ORD ERABLES Final Result Performing Organization Address City/[facility]/ZIP Co de Phone Number [facility] [address] [place] [address] * (ABNORMAL) FERRITIN (11/27/2024 6:35 EST) Only the most recent of3 resultswithin the time period is included. Ferritin 393(H) 22 - 322 ng/mL 11/27/2024 23:02 EST [facility] Blood VENOUS BLOOD / Unknown Venipuncture / Unknown 11/27/2024 6:35 EST 11/27/2024 6:35 EST us Carlota Jin MD CHEMISTRY & BLOOD GAS ORD ERABLES Final Result Performing Organization Address [facility] Co de Phone Number [facility] [address] [place] [address] * POCT GLUCOSE, INTERFACED (11/20/2024 9:32 EST) Only the most recent of69 resultswithin the time period is included. Glucose, POC 93 70 - 100 mg/dL 11/21/2024 8:29 EST [facility] HN LAB POC COMMENT (GLUCOSE) Test Performed by Nursing Services 11/21/2024 8:29 EST [facility] Blood CAPILLARY BLOOD / Unknown 11/20/2024 9:32 EST 11/21/2024 8:29 EST Carlota Jin MD POINT OF CARE TEST ORDERA BLES Final Result Performing Organization Address City/[facility]/ZIP Co de Phone Number [facility] [address] [place] [address] * (ABNORMAL) VITAMIN D (25,OH) (10/30/2024 6:47 EST) 25OH Vitamin D Tot 28(L) 30 - 100 ng/mL 10/31/2024 10:53 [facility] Comment: Vitamin D 25,OH Interpretive Ranges: Deficiency: ??<10.0 ng/mL Insufficiency: ??10.0 - 30.0 ng/mL Sufficiency: ??30.0 - 100.0 ng/mL Toxicity: ??>100.0 ng/mL Blood VENOUS BLOOD / Unknown Venipuncture / Unknown 10/30/2024 6:47 EST 10/30/2024 6:47 EST Carlota Jin MD CHEMISTRY & BLOOD GAS ORD ERABLES Final Result Performing Organization Address [facility] de Phone Number [facility] [address] [place] [address] * DIALYSIS HEPATITIS- DIALYSIS USE ONLY (10/30/2024 6:47 EST) Pathologist [facility] Hep B Surface Ag Negative Negative 10/31/19 11:36 [facility] Hep B Surface Ab, Quantitative 140.6 See Note mIU/mL 10/31/2024 11:36 [facility] Comment: Reference Range for Hep B Surface Ab, Quant: Positive: >= 10.0 mIU/mL Negative: ??< 10.0 mIU/mL Patient is presumed to be immune to infection with Hepatitis B Virus. Hep B Surface Ab, Qualitative Positive See Note 10/31/2024 11:36 [facility] Comment: Reference Range for Hep B Surface Ab, Qual: Unvaccinated: ??Negative Vaccinated: ??Positive Hepatitis B Core Ab, Total Negative Negative 10/31/2024 11:36 EST [facility] Hep C Antibody Negative Negative 10/31/2024 11:36 EST [facility] Blood VENOUS BLOOD / Unknown Venipuncture / Unknown 10/30/2024 6:47 EST 10/30/2024 6:47 EST Carlota Jin MD CHEMISTRY & BLOOD GAS ORD ERABLES Final Result Performing Organization Address [facility]/ZIP Co de Phone Number [facility] [address] [place] [address] * (ABNORMAL) PTH INTACT (10/30/2024 6:47 EST) Intact PTH 641.9(H) 19.0 - 88.0 pg/mL 10/30/2024 23:18 EST [facility] Blood VENOUS BLOOD / Unknown Venipuncture / Unknown 10/30/2024 6:47 EST 10/30/2024 6:47 EST Result [facility] Carlota Jin MD CHEMISTRY & BLOOD GAS ORD ERABLES Final Result Performing Organization Address [facility] de Phone Number [facility] [address] [place] [id number] * FOLATE (10/30/2024 6:47 EST) Folate >24.0 See Note ng/mL 10/30/2024 23:12 EST [facility] Comment: Reference Ranges for [...] ORD ERABLES Final Result Performing Organization Address City/[facility]/ZIP Co de Phone Number [facility] [address] [place], [place] [address] * VITAMIN B12 (10/30/2024 6:47 EST) Vitamin B12 342 211 - 911 pg/mL 10/30/2024 23:31 [facility] Blood VENOUS BLOOD / Unknown Venipuncture / Unknown 10/30/2024 6:47 EST 10/30/2024 6:47 EST us Carlota Jin MD CHEMISTRY & BLOOD GAS ORD ERABLES Final Result Performing Organization Address [facility] Co de Phone Number [facility] [address] [place] [address] * (ABNORMAL) LIPID PROFILE (INCLUDES CHOLESTEROL, TRIGLYCERIDES, HDL, LDL) (12/24/2023 12:33 EST) Cholesterol 94 <200 mg/dL 12/24/2023 15:22 [facility] Comment:Note that therapeuti c goals will differ between patients based on cardiac risk factors and current medical therapy. HDL 40 >=40 mg/dl 12/24/2023 15:22 [facility] Comment:Note that therapeuti c goals will differ between patients based on cardiac risk factors and current medical therapy. LDL, Calculated <20 <160 mg/dL 15:22 [facility] Comment: Note that therapeutic goals will differ between patients based on cardiac risk factors and current medical therapy. Calculated LDL invalid (<20 mg/dL) Direct LDL measurement added by reflex. Triglyceride 217(H) <=150 mg/dL 12/24/2023 15:22 [facility] Comment:Note that therapeuti c goals will differ between patients based on cardiac risk factors and current medical therapy. Chol/HDL Ratio 2.4 See Note 12/24/2023 15:22 [facility] Comment:No reference range h as been established for CHOL/HDL ratio. Non HDL Cholesterol 54 <160 mg/dL 12/24/2023 15:22 EST [facility] Comment:Note that therapeuti c goals will differ between patients based on cardiac risk factors and current medical therapy. Blood VENOUS BLOOD / Unknown Venipuncture / Unknown 12/24/2023 12:33 EST 12/24/2023 13:19 EST us Sourav Kilgore PA-C CHEMISTRY & BLOOD GAS ORDE VASYL Final Result Performing Organization Address City/[facility]/ZIP Co de Phone Number [facility] [address] [place] [address] * (ABNORMAL) HEMOGLOBIN A1C (11/07/2023 7:57 EST) Hemoglobin A1c 11.6(H) <5.7 % 11/08/2023 11:44 EST [facility] Comment: Glycemic Status References: Normal: ??<5.7% Pre-Diabetes: ??5.7% - 6.4% Diagnostic of Diabetes: ??> or = 6.5% (if confirmed) Est Avg Glucose 286 mg/dL 11:44 EST [facility] Comment:The eAG represents t he A1c result expressed as average glucose in mg/dL. Blood VENOUS BLOOD / Unknown Venipuncture / Unknown 11/07/2023 7:57 EST 11/07/2023 8:16 EST us Chad Villareal MD CHEMISTRY & BLOOD GAS ORDERABLES Final Result Performing Organization Address City/[facility]/ZIP Co de Phone Number [facility] [address] [place] [phone] from Last 3 Months or Most Recently Relevant to Health Maintenance
--- OUTSIDE RECORDS SUMMARY | 2024-12-05 11:52 | XMS_ITS | Clinical Summary ---
Author Organization [facility] Address [address] [place] [address] Care Team Providers Care Final Expense Agent Name Role Phone Ken Greer MD Primary Care Provider [phone] Kiel Powers Unavailable Unavailable Allergies Active Allergy Reactions Criticality Noted Date [...] insulin pen needles 32G x 5/32 Brand: BD Ultra Fine Anny. ISS TID and levemir [...] Problem Noted Date Diagnosed Date Diabetes mellitus ([facility]) 05/31/2024 Anxiety and depression 02/22/2024 GERD (gastroesophageal reflux disease) Olecranon bursitis, right elbow 02/22/2024 Osteoarthrosis 02/22/2024 Peripheral neuropathy 02/22/2024 Retinopathy 02/22/2024 Sciatica 02/22/2024 Smoker 02/22/2024 Non-healing open wound of heel 02/18/2024 Atrial fibrillation and flutter ([facility]) 2023 Anemia of chronic renal fail ure, stage 5 ([facility]) [N18.5, D63.1] 12/20/2023 ESRD on hemodialysis ([facility]) 12/20/2023 Type 2 diabetes mellitus wit h chronic kidney disease on chronic dialysis, with long-term current use of insulin ([facility]) [E11.22, N18.6, Z99.2, Z79.4] 11/09/2023 Diabetic foot infection ([facility]) [E11.628, L08. 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 associated with type 2 diabetes mellitus ([facility]) 07/15/2021 TIA (transient ischemic attack) 07/19/2020 Right sided numbness 03/07/2019 Anemia in chronic kidney disease 02/09/2019 Nicotine dependence, cigarettes, uncomplicated 0 02/09/2019 Type 2 diabetes mellitus wit h diabetic neuropathy, unspecified ([facility]) 02/09/2019 Secondary hyperparathyroidism of renal origin ([facility] 02/09/2019 Secondary hyperparathyroidism ([facility]) 10/26/19 19 Proteinuria 09/07/2016 Primary hypertension [I10] 07/19/2016 Hyperlipidemia 07/19/2016 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 08/16/2015 Overview (11/13/2022): L4-5 left Hearing loss 07/19/2014 Type II or unspecified type diabetes mellitus with neurological manifestations, uncontrolled(250.62) 07/19/2014 Resolved Problems Problem Noted Date Diagnosed Date Resolved Date Hypoglycemia 05/31/2024 05/31/2024 Acute hypoxic respiratory failure ([facility] 05/30/2024 05/31/2024 Hyperkalemia [E87.5] 12/20/2023 024 Cellulitis 12/20/2023 12/24/2023 Encounters Date Type Department Care Team Description 12/04/2024 6:45 EST Treatment [facility] [place] [address] [place] [address] Carlota Jin MD ESRD (end stage renal disease) ([facility]) (Primary Dx); Secondary hyperparathyroidism ([facility]) 12/04/2024 Documentation Visit [facility] [place] [address] [place] [address] Marcela Cox, VIDYA 12/04/2024 Plan of Care Documentation [facility] [address] [place] [address] 12/01/2024 6:45 EST Treatment [facility] [address] [place] [address] Carlota Jin MD ESRD (end stage renal disease) ([facility]) (Primary Dx); Secondary hyperparathyroidism ([facility]) 11/29/2024 6:45 EST Treatment [facility] [address] [place] [address] Carlota Jin MD ESRD (end stage renal disease) ([facility]) (Primary Dx); Secondary hyperparathyroidism ([facility]) 11/28/2024 Documentation Visit [facility] [place] [address] [place] [address] Shelley Eden, RD 11/27/2024 6:45 EST Treatment [facility] [place] [address] [place] [address] Carlota Jin MD ESRD (end stage renal disease) ([facility]) (Primary Dx); Secondary hyperparathyroidism ([facility]) 11/24/2024 6:45 EST Treatment [facility] [place] [address] [place] [address] Carlota Jin MD ESRD (end stage renal disease) ([facility]) (Primary Dx); Secondary hyperparathyroidism ([facility]) 11/24/2024 Documentation Visit [facility] [place] [address] [place] [address] Yoanna Degroot, RN 11/24/2024 Documentation Visit [facility] [place] [address] [place] [address] Melissa Crespo, RN 11/22/2024 6:45 EST Treatment [facility] [place] [address] [place] [address] Carlota Jin MD ESRD (end stage renal disease) ([facility]) (Primary Dx); Secondary hyperparathyroidism ([facility]) 11/20/2024 6:45 EST Treatment [facility] [place] [address] [place] [address] Carlota Jin MD ESRD (end stage renal disease) ([facility]) (Primary Dx); Secondary hyperparathyroidism ([facility]) 11/20/2024 Documentation Visit [facility] [place] [address] [place] [address] Shelley Eden, RD 11/17/2024 6:45 EST Treatment [facility] [place] [address] [place] [address] Carlota Jin MD ESRD (end stage renal disease) ([facility]) (Primary Dx); Secondary hyperparathyroidism ([facility]) 11/15/2024 6:45 EST Treatment [facility] [place] [address] [place] [address] Carlota Jin MD ESRD (end stage renal disease) ([facility]) (Primary Dx); Secondary hyperparathyroidism ([facility]) 11/15/2024 Documentation Visit [facility] [place] [address] [place] [address] Alexa Estrada, [facility] 11/13/2024 6:45 EST Treatment [facility] [place] [address] [place] [address] Carlota Jin MD ESRD (end stage renal disease) ([facility]) (Primary Dx); Hypoalbuminemia; Secondary hyperparathyroidism ([facility]) 11/10/2024 6:45 EST Treatment [facility] [place] [address] [place] [address] Carlota Jin MD ESRD (end stage renal disease) ([facility]) (Primary Dx); Hypoalbuminemia; Secondary hyperparathyroidism ([facility]) 11/08/2024 6:45 EST Treatment [facility] [place] [address] [place] [address] Carlota Jin MD ESRD (end stage renal disease) ([facility]) (Primary Dx); Hypoalbuminemia; Secondary hyperparathyroidism ([facility]) 11/08/2024 Documentation Visit [facility] [place] [address] [place], [place] [address] Marcela Cox, VIDYA 11/06/2024 6:45 EST Treatment [facility] [place] [address] [place] [address] Carlota Jin MD ESRD (end stage renal disease) ([facility]) (Primary Dx); Hypoalbuminemia; Secondary hyperparathyroidism ([facility]) 11/03/2024 6:45 EST Treatment [facility] [address] [place], [place] [address] Carlota Jin MD ESRD (end stage renal disease) ([facility]) (Primary Dx); Hypoalbuminemia; Secondary hyperparathyroidism ([facility]) 11/01/2024 6:45 EST Treatment [facility] [address] [place], [place] [id number] Carlota Jin MD ESRD (end stage renal disease) ([facility]) (Primary Dx); Hypoalbuminemia; Secondary hyperparathyroidism ([facility]) 10/31/2024 Documentation Visit [facility] [address] [place], [place] [id number] Shelley Eden, RD 10/30/2024 6:45 EST Treatment [facility] [address] [place], [place] [address] Carlota Jin MD ESRD (end stage renal disease) ([facility]) (Primary Dx); Secondary hyperparathyroidism ([facility]); Hypoalbuminemia 10/30/2024 Documentation Visit [facility] [address] [place], [place] [address] Alexa Estrada LICSW 10/27/2024 6:45 EST Treatment [facility] [address] [place], [place] [address] Carlota Jin MD ESRD (end stage renal disease) ([facility]) (Primary Dx); Hypoalbuminemia; Secondary hyperparathyroidism ([facility]) 10/27/2024 Orders Only [facility] [place] [address] [place] [address] Paris Quintanilla NP 10/26/2024 6:45 EST Treatment [facility] [address] [place] [id number] ESRD (end stage renal disease) ([facility]) (Primary Dx); Hypoalbuminemia; Secondary hyperparathyroidism ([facility]) 10/23/2024 6:45 EST Treatment [facility] [address] [place], [place] [id number] Carlota Jin MD ESRD (end stage renal disease) ([facility]) (Primary Dx); Hypoalbuminemia; Secondary hyperparathyroidism ([facility]) 10/20/2024 6:45 EST Treatment [facility] [address] [place], [place] [id number] Carlota Jin MD ESRD (end stage renal disease) ([facility]) (Primary Dx); Hypoalbuminemia; Secondary hyperparathyroidism ([facility]) 10/19/2024 6:45 EST Treatment [facility] [address] [place], [place] [id number] ESRD (end stage renal disease) ([facility]) (Primary Dx); Hypoalbuminemia; Secondary hyperparathyroidism ([facility]) 10/16/2024 6:45 EST Treatment [facility] [address] [place], [place] [id number] Carlota Jin MD ESRD (end stage renal disease) ([facility]) (Primary Dx); Hypoalbuminemia; Secondary hyperparathyroidism ([facility]) 10/13/2024 6:45 EST Treatment [facility] [address] [place] [address] Carlota Jin MD ESRD (end stage renal disease) ([facility]) (Primary Dx); Hypoalbuminemia; Secondary hyperparathyroidism ([facility]) 10/11/2024 6:45 EST Treatment [facility] [address] [place], [place] [id number] Carlota Jin MD ESRD (end stage renal disease) ([facility]) (Primary Dx); Hypoalbuminemia; Secondary hyperparathyroidism ([facility]) 10/09/2024 6:45 EST Treatment [facility] [address] [place] [id number] Carlota Jin MD ESRD (end stage renal disease) ([facility]) (Primary Dx); Hypoalbuminemia; Secondary hyperparathyroidism ([facility]) 10/09/2024 Documentation Visit [facility] [place] [address] [place] [address] EstradaAlexa SWITCH INSPECTOR 10/06/2024 6:45 EST Treatment [facility] [address] [place] [address] Carlota Jin MD ESRD (end stage renal disease) ([facility]) (Primary Dx); Hypoalbuminemia; Secondary hyperparathyroidism ([facility]) 10/04/2024 6:45 EST Treatment [facility] [place] [address] [place] [address] Carlota Jin MD ESRD (end stage renal disease) ([facility]) (Primary Dx); Hypoalbuminemia; Secondary hyperparathyroidism ([facility]) 10/04/2024 Orders Only [facility] [address] [place], [place] [address] Yoanna Degroot, RN 10/04/2024 [facility] [address] [place], [place] [address] Marcela Cox, VIDYA 10/02/2024 6:45 EST Treatment [facility] [address] [place] [address] Carlota Jin MD ESRD (end stage renal disease) ([facility]) (Primary Dx); Hypoalbuminemia; Secondary hyperparathyroidism ([facility]) 10/02/2024 Documentation [facility] [address] [place], [place] [address] Shelley Eden, ADITI 09/29/2024 6:45 EST Treatment [facility] [address] [place] [address] Carlota Jin MD ESRD (end stage renal disease) ([facility]) (Primary Dx); Hypoalbuminemia; Secondary hyperparathyroidism ([facility]) 09/27/2024 6:45 EST Treatment [facility] [address] [place] [address] Carlota Jin MD ESRD (end stage renal disease) ([facility]) (Primary Dx); Hypoalbuminemia; Secondary hyperparathyroidism ([facility]) 09/26/2024 Documentation Visit [facility] [address] [place], [place] [address] Shelley Eden, RD 09/25/2024 6:45 EST Treatment [facility] [address] [place], [place] [address] Carlota Jin MD ESRD (end stage renal disease) ([facility]) (Primary Dx); Hypoalbuminemia; Secondary hyperparathyroidism ([facility]) 09/22/2024 6:45 EST Treatment [facility] [address] [place] [address] Carlota Jin MD ESRD (end stage renal disease) ([facility]) (Primary Dx); Hypoalbuminemia; Secondary hyperparathyroidism ([facility]) 09/20/2024 6:45 EST Treatment [facility] [address] [place] [address] Carlota Jin MD ESRD (end stage renal disease) ([facility]) (Primary Dx); Hypoalbuminemia; Secondary hyperparathyroidism ([facility]) 09/18/2024 6:45 EST Treatment [facility] [address] [place], [place] [address] Carlota Jin MD ESRD (end stage renal disease) ([facility]) (Primary Dx); Hypoalbuminemia; Secondary hyperparathyroidism ([facility]) 09/15/2024 6:45 EST Treatment [facility] [address] [place], [place] [address] Carlota Jin MD ESRD (end stage renal disease) ([facility]) (Primary Dx); Hypoalbuminemia; Secondary hyperparathyroidism ([facility]) 09/14/2024 Documentation Visit [facility] [address] [place], [place] [address] Shelley Eden RD 09/13/2024 6:45 EST Treatment [facility] [address] [place], [place] [address] Carlota Jin MD ESRD (end stage renal disease) ([facility]) (Primary Dx); Hypoalbuminemia; Secondary hyperparathyroidism ([facility]) 09/11/2024 6:45 EST Treatment [facility] [address] [place], [place] [address] Carlota Jin MD ESRD (end stage renal disease) ([facility]) (Primary Dx); Hypoalbuminemia; Secondary hyperparathyroidism ([facility]) 09/08/2024 6:45 EST Treatment [facility] [address] [place], [place] [address] Carlota Jin MD ESRD (end stage renal disease) ([facility]) (Primary Dx); Hypoalbuminemia; Secondary hyperparathyroidism ([facility]) 09/06/2024 6:45 EST Treatment [facility] [address] [place] [address] Carlota Jin MD ESRD (end stage renal disease) ([facility]) (Primary Dx); Hypoalbuminemia; Secondary hyperparathyroidism ([facility]) 09/06/2024 Documentation Visit [facility] [address] [place], [place] [address] Paris Quintanilla NP 09/04/2024 6:45 EST Treatment [facility] [address] [place], [place] [address] Carlota Jin MD ESRD (end stage renal disease) ([facility]) (Primary Dx); Hypoalbuminemia; Secondary hyperparathyroidism ([facility]) 09/04/2024 Documentation Visit [facility] [place] [address] [place] [address] Marcela Cox RN 09/04/2024 Documentation Visit [facility] [place] [address] [place] [address] Alexa Estrada, NIKKIE from Last 3 Months Immunizations Name Administration Dates Next Due Covid-19 mRNA-LNP 2022- Va ccine (MODERNA COVID-19) PF 0.5 mL IM (12 yrs+) 08/18/2023(Deferred: Patient Refused) Covid-19 mRNA-LNP 2023- Va ccine (MODERNA COVID-19) PF 0.5 mL [...] IM 10/30/1996 Tdap Vaccine =>8YO IM 05/31/2016 Surgical History Surgery Date Site/Laterality Comments BACK SURGERY SHOULDER SURGERY APPENDECTOMY CHOLECYSTECTOMY DIALYSIS FISTULA CREATION Left BELOW KNEE AMPUTATION 02/21/2024 Left BELOW KNEE AMPUTATION 04/25/2024 Right Medical History Medical History Date Comments Diabetes mellitus ([facility]) DM2 Stage 3 chronic kidney disease ([facility]) Asthma Mild Hyperlipidemia Hypertension Unsteady gait when walking Family History Medical History Relation Comments Hypertension Maternal Grandfather Hypertension Maternal Grandmother Cataract Neg Hx Glaucoma Neg Hx Macular Degeneration Neg Hx Retinal Detachment Neg Hx Relation Status Comments Maternal Grandfather Maternal Grandmother Social History Tobacco Use Types Packs/Day Years Used Date Smoking Tobacco: Every Day Cigarettes 1 26.1 Started: 1998 Smokeless Tobacco: Never Tobacco Cessation:Ready to Q uit: Not Asked; Counseling Given: Not Answered Alcohol Use Standard Drinks/Week Comments Yes 0 (1 standard drink = 0.6 oz pur e alcohol) Socially [facility] Utilities Answer Date Recorded In the [...] any time in the past 12 m [facility], were you homeless or living in a fpc (including now)? No 05/30/2024 [facility] - Inadequate Housing Answer Date Re corded What is your living situation today? I have a [facility] place to live 11/15/[address] you li ve. Do you have problems with any of the following? None of the above 11/15/2024 [facility] - Transportation Answer Date Record ed In the past 12 months, has l ack of reliable transportation kept you from medical appointments, meetings, work or from getting things needed for daily living? No 11/15/2024 [facility] - Personal Safety Answer Date Recor [...] scream or curse at you? Never 11/15/2024 [facility] - Financial Strain Answer Date Cornel rded How hard is it for you to pa y for the very basics like food, housing, medical care, and heating? Would you say it is: Not hard at all 11/15/2024 [facility] - Employment Answer Date Recorded Do you want help finding or keeping work or a job? I do not need or want help 11/15/2024 [facility] - Social Connections Answer Date Re corded If for any reason you need h elp with day-to-day activities such as bathing, preparing meals, shopping, managing finances, etc., do you get the help you need? I get all the help I need 11/15/2024 How often do you feel lonely or isolated from those around you? Never 11/15/2024 [facility] - Education Answer Date Recorded Do you speak a language other than [place] at [facility]? No 11/15/2024 Do you want help with school or training? For example, starting or completing job training or getting a high school diploma, GED or equivalent. No 11/15/2024 [facility] - Physical Activity Answer Date Rec [...] your living situation today? [facility] 05/30/2024 Think about [...] the past 12 months has th e [employer], gas, oil, or water company threatened to shut off services in your home? No 05/30/2024 Sex and Gender Information Value Date Recorded Sex Assigned at Not on file Legal Sex Male 18:49 EST Gender Identity Male 07/07/2023 14:11 EDT Sexual Orientation Not on file Obstetrics History Last Filed Vital Signs Vital Sign Reading [...] Body Mass Index 26.29 07/20/2024 1359 EDT Plan of Treatment Upcoming Encounters Date Type Department Care Team (Late st Contact Info) Description 12/06/2024 6:45 EST Treatment [facility] [address] [place], [place] [id number] Carlota Jin MD 1 [facility], [facility] [address] [place] [phone] 12/08/2024 6:45 EST [facility] [address] [place], [place] [phone] Carlota Jin MD [address] [place] [address], [address] [phone] 12/11/2024 6:45 EST Treatment [facility] [place] [address] [place], [place] [phone] Carlota Jin MD [address] [place] [address], [facility] [address] [place] [phone] 12/13/2024 6:45 EST Treatment [facility] [address] [place], [place] [phone] Carlota Jin MD [address] [place] [address] [address] [place] [phone] 12/15/2024 6:45 EST Treatment [facility] [place] [address] [place], [place] [address] Carlota Jin MD 1 [facility], [facility] [address] [place] [phone] 12/18/2024 6:45 EST Treatment [facility] [place] [address] [place], [place] [phone] Carlota Jin MD 1 [facility], [facility] [address] [place] [phone] 12/20/2024 6:45 EST Treatment [facility] [place] [address] [place] [address] Carlota Jin MD 1 [facility], [facility] [address] [place] [phone] 12/22/2024 6:45 EST Treatment [facility] [place] [address] [place], [place] [address] Carlota Jin MD 1 [facility], [facility] [address] [place] [phone] 12/25/2024 6:45 EST Treatment [facility] [place] [address] [place], [place] [id number] Carlota Jin MD 1 [facility], [facility] [address] [place] [phone] 12/27/2024 6:45 EST Treatment [facility] [place] [address] [place], [place] [address] [facility] MD [facility] [address] [place] [phone] 12/29/2024 6:45 EST Treatment [facility] [place] [address] [place], [place] [id number] Carl[facility] MD [facility] [address] [place] [phone] 01/01/2025 6:45 EDT Treatment [facility] [place] [address] [place], [place] [phone] Carlota Jin MD 1 [facility], [address] [phone] 01/03/2025 6:45 EDT Treatment [facility] [place] [address] [place] [address] Carlota Jin MD 1 [facility], [facility] [address] [place] [phone] 01/05/2025 6:45 EDT Treatment [facility] [place] [address] [place], [place] [id number] Carlota Jin MD 1 [facility], [facility] [address] [place] [phone] 01/08/2025 6:45 EDT Treatment [facility] [place] [address] [place], [place] [phone] Carlota Jin MD 1 [facility], [facility] [address] [place] [phone] 01/10/2025 6:45 EDT Treatment [facility] [place] [address] [place], [place] [id number] Carlota Jin MD 1 [facility], [facility] [address] [place] [phone] 01/12/2025 6:45 EDT Treatment [facility] [facility] [place] [address] [place], [place] [id number] Carlota Jin MD 1 [facility], [facility] [address] [place] [phone] 01/15/2025 6:45 EDT Treatment [facility] [place] [address] [place], [place] [id number] Carlota Jin MD 1 [facility], [address] [phone] 01/17/2025 6:45 EDT Treatment [facility] [place] [address] [place], [place] [id number] Carlota Jin MD 1 [facility], [facility] [address] [place] [phone] 01/19/2025 6:45 EDT Treatment [facility] [place] [address] [place], [place] [id number] Carlota Jin MD 1 [facility], [facility] [address] [place] [phone] 01/22/2025 6:45 EDT Treatment [facility] [place] [address] [place], [place] [id number] Carlota Jin MD 1 [facility], [facility] [address] [place] [phone] 01/24/2025 6:45 EDT Treatment [facility] [place] [address] [place] [address] Carlota Jin MD 1 [facility], [facility] [address] [place] [phone] 01/26/2025 6:45 EDT Treatment [facility] [place] [address] [place], [place] [id number] Carlota Jin MD 1 [facility], [facility] [address] [place] [phone] 01/29/2025 6:45 EDT Treatment [facility] [place] [address] [place], [place] [id number] Carlota Jin MD 1 [facility], [facility] [address] [place] [phone] 01/31/2025 6:45 EDT Treatment [facility] [place] [address] [place], [place] [phone] Carlota Jin MD 1 [facility], [facility] [address] [place] [phone] 02/02/2025 6:45 EDT Treatment [facility] [place] [address] [place], [place] [phone] Carlota Jin MD 1 [facility], [facility] [address] [place] [phone] 02/05/2025 6:45 EDT Treatment [facility] [place] [address] [place], [place] [phone] Carlota Jin MD 1 [facility], [facility] [address] [place] [phone] 02/07/2025 6:45 EDT Treatment [facility] [place] [address] [place], [place] [id number] Carlota Jin MD 1 [facility], [facility] [address] [place] [phone] 02/09/2025 6:45 EDT Treatment [facility] [address] [place], [place] [phone] Carlota Jin MD [address] [place] [address], [address] [phone] 02/12/2025 6:45 EDT Treatment [facility] [address] [place], [place] [phone] Carlota Jin MD [address] [place] [address], [facility] [address] [place] [phone] 02/14/2025 6:45 EDT Treatment [facility] [address] [place], [place] [phone] Carlota Jin MD 1 [facility], [facility] [address] [place] [phone] 02/16/2025 6:45 EDT Treatment [facility] [place] [address] [place], [place] [phone] Carlota Jin MD 1 [facility], [facility] [address] [place] [phone] 02/19/2025 6:45 EDT Treatment [facility] [address] [place], [place] [phone] Carlota Jin MD 1 [facility], [facility] [address] [place] [phone] 02/21/2025 6:45 EDT Treatment [facility] [place] [address] [place], [place] [phone] Carlota Jin MD 1 [facility], [facility] [address] [place] [phone] Health Maintenance Due Date Last Done Comments Asthma Action Plan 1966 Foot Exam 1966 Lung Function Test (Spirometry) 1966 Microalbumin/Creatinine Ratio 1966 Eye Exam 10/14/2022 10/14/2021, 07/15/2021 Hepatitis B Vaccine (14 of 1 4 - Risk Dialysis Recombivax 3-dose series) 04/06/2023 04/06/2022, 02/02/2022, 01/05/2022, Additional history exists Hemoglobin A1C (Ha1C) 05/07/2024 11/07/2023 COVID-19 Vaccine (2023-2 5 season) 2024 Lipid Profile Screening (Cholesterol) 12/23/2024 12/24/2023 Lung Cancer Screening 03/13/2025 03/13/2024 Pneumococcal Immunization Completed 2022, 08/02/2019, 09/07/2011, Additional history exists Hepatitis C Screen Completed 10/30/2024, 0 05/01/2024, 10/27/2023, Additional history exists Procedures Procedure Name Priority Date/Time Associated Diagnosis Comments HEMODIALYSIS Routine 12/04/2024 6:21 EST ESRD (end stage renal disease) ([facility]) HEMODIALYSIS Routine 12/01/2024 6:23 EST ESRD (end stage renal disease) ([facility]) COMPLETE BLOOD COUNT Routine 11/29/2024 6:34 EST ESRD (end stage renal disease) ([facility]) HEMODIALYSIS Routine 11/29/2024 6:27 EST ESRD (end stage renal disease) ([facility]) POSTDIALYSIS BUN WITH URR CALCULATION Routine 11/27/2024 11:08 EST ESRD (end stage renal disease) ([facility]) FERRITIN Routine 11/27/2024 6:35 EST ESRD (end stage renal disease) ([facility]) TRANSFERRIN SATURATION Routine 11/27/2024 6:35 EST ESRD (end stage renal disease) ([facility]) DIALYSIS ROUTINE - DIALYSIS ONLY (BUN, K, NA, CL, CO2, SANJEEV, ALB, MG, PHOS, ALKP, AST) Routine 11/27/2024 6:35 EST ESRD (end stage renal disease) ([facility]) PROFILE IRON STUDIES (INCLUDES IRON, IBC, AND FERRITIN) Routine 11/27/2024 6:35 EST ESRD (end stage renal disease) ([facility]) HEMODIALYSIS Routine 11/27/2024 6:19 EST ESRD (end stage renal disease) ([facility]) HEMODIALYSIS Routine 11/24/2024 6:25 EST ESRD (end stage renal disease) ([facility]) COMPLETE BLOOD COUNT Routine 11/22/2024 6:32 EST ESRD (end stage renal disease) ([facility]) HEMODIALYSIS Routine 11/22/2024 6:25 EST ESRD (end stage renal disease) ([facility]) POCT GLUCOSE, INTERFACED Routine 11/20/2024 9:32 EST HEMODIALYSIS Routine 11/20/2024 6:21 EST ESRD (end stage renal disease) ([facility]) HEMODIALYSIS Routine 11/17/2024 6:23 EST ESRD (end stage renal disease) ([facility]) COMPLETE BLOOD COUNT Routine 11/15/2024 6:33 EST ESRD (end stage renal disease) ([facility]) HEMODIALYSIS Routine 11/15/2024 6:25 EST ESRD (end stage renal disease) ([facility]) HEMODIALYSIS Routine 11/13/2024 6:20 EST ESRD (end stage renal disease) ([facility]) HEMODIALYSIS Routine 11/10/2024 6:18 EST ESRD (end stage renal disease) ([facility]) COMPLETE BLOOD COUNT Routine 11/08/2024 6:32 EST ESRD (end stage renal disease) ([facility]) HEMODIALYSIS Routine 11/08/2024 6:25 EST ESRD (end stage renal disease) ([facility]) HEMODIALYSIS Routine 11/06/2024 6:22 EST ESRD (end stage renal disease) ([facility]) POCT GLUCOSE, INTERFACED Routine 11/03/2024 10:33 EST POCT GLUCOSE, INTERFACED Routine 11/03/2024 8:39 EST POCT GLUCOSE, INTERFACED Routine 11/03/2024 7:27 EST POCT GLUCOSE, INTERFACED Routine 11/03/2024 6:59 EST HEMODIALYSIS Routine 11/03/2024 6:20 EST ESRD (end stage renal disease) ([facility]) COMPLETE BLOOD COUNT Routine 11/01/2024 6:27 EST ESRD (end stage renal disease) ([facility]) HEMODIALYSIS Routine 11/01/2024 6:17 EST ESRD (end stage renal disease) ([facility]) POSTDIALYSIS BUN WITH URR CALCULATION Routine 10/30/2024 11:05 EST ESRD (end stage renal disease) ([facility]) FERRITIN Routine 10/30/2024 6:47 EST ESRD (end stage renal disease) ([facility]) TRANSFERRIN SATURATION Routine 10/30/2024 6:47 EST ESRD (end stage renal disease) ([facility]) VITAMIN D (25,[place]) Routine 10/30/2024 6:4 7 EST ESRD (end stage renal disease) ([facility] VITAMIN B12 Routine 10/30/2024 6:47 EST ESRD (end stage renal disease) ([facility]) FOLATE Routine 10/30/2024 6:47 EST ESRD (end stage renal disease) ([facility]) DIALYSIS HEPATITIS- DIALYSIS USE ONLY Routine 10/30/2024 6:47 EST ESRD (end stage renal disease) ([facility]) PTH INTACT Routine 10/30/2024 6:47 EST ESRD (end stage renal disease) ([facility]) Secondary hyperparathyroidism ([facility]) DIALYSIS ROUTINE - DIALYSIS ONLY (BUN, K, NA, CL, CO2, SANJEEV, ALB, MG, PHOS, ALKP, AST) Routine 10/30/2024 6:47 EST ESRD (end stage renal disease) ([facility]) PROFILE IRON STUDIES (INCLUDES IRON, IBC, AND FERRITIN) Routine 10/30/2024 6:47 EST ESRD (end stage renal disease) ([facility]) HEMODIALYSIS Routine 10/30/2024 6:22 EST ESRD (end stage renal disease) ([facility]) HEMODIALYSIS Routine 10/27/2024 6:24 EST ESRD (end stage renal disease) ([facility]) POCT GLUCOSE, INTERFACED Routine 10/26/2024 10:50 [...] 6:26 EST ESRD (end stage renal disease) ([facility]) HEMODIALYSIS Routine 10/26/2024 6:19 EST ESRD (end stage renal disease) ([facility]) POCT GLUCOSE, INTERFACED Routine 10/23/2024 10:34 EST POCT GLUCOSE, INTERFACED Routine 10/23/2024 10:12 EST POCT GLUCOSE, INTERFACED Routine 10/23/2024 9:24 EST POCT GLUCOSE, INTERFACED Routine 10/23/2024 9:04 EST HEMODIALYSIS Routine 10/23/2024 6:26 EST ESRD (end stage renal disease) ([facility]) POCT GLUCOSE, INTERFACED Routine 10/20/2024 10:41 EST POCT GLUCOSE, INTERFACED Routine 10/20/2024 10:13 EST POCT GLUCOSE, INTERFACED Routine 10/20/2024 9:28 EST POCT GLUCOSE, INTERFACED Routine 10/20/2024 9:08 EST HEMODIALYSIS Routine 10/20/2024 6:22 EST ESRD (end stage renal disease) ([facility]) POCT GLUCOSE, INTERFACED Routine 10/19/2024 11:07 EST POCT GLUCOSE, INTERFACED Routine 10/19/2024 10:46 EST POCT GLUCOSE, INTERFACED Routine 10/19/2024 9:02 EST POCT GLUCOSE, INTERFACED Routine 10/19/2024 7:18 EST COMPLETE BLOOD COUNT Routine 10/19/2024 6:47 EST ESRD (end stage renal disease) ([facility]) HEMODIALYSIS Routine 10/19/2024 6:39 EST ESRD (end stage renal disease) ([facility]) POCT GLUCOSE, INTERFACED Routine 10/16/2024 11:10 EST POCT GLUCOSE, INTERFACED Routine 10/16/2024 10:36 EST POCT GLUCOSE, INTERFACED Routine 10/16/2024 10:25 EST POCT GLUCOSE, INTERFACED Routine 10/16/2024 9:36 EST POCT GLUCOSE, INTERFACED Routine 10/16/2024 9:15 EST HEMODIALYSIS Routine 10/16/2024 6:24 EST ESRD (end stage renal disease) ([facility]) POCT GLUCOSE, INTERFACED Routine 10/13/2024 10:41 EST POCT GLUCOSE, INTERFACED Routine 10/13/2024 10:21 EST POCT GLUCOSE, INTERFACED Routine 10/13/2024 9:02 EST HEMODIALYSIS Routine 10/13/2024 6:20 EST ESRD (end stage renal disease) ([facility]) POCT GLUCOSE, INTERFACED Routine 10/11/2024 11:02 EST POCT GLUCOSE, INTERFACED Routine 10/11/2024 10:45 EST POCT GLUCOSE, INTERFACED Routine 10/11/2024 9:29 EST POCT GLUCOSE, INTERFACED Routine 10/11/2024 9:12 EST COMPLETE BLOOD COUNT Routine 10/11/2024 6:30 EST ESRD (end stage renal disease) ([facility]) HEMODIALYSIS Routine 10/11/2024 6:21 EST ESRD (end stage renal disease) ([facility]) POCT GLUCOSE, INTERFACED Routine 10/09/2024 11:10 EST POCT GLUCOSE, INTERFACED Routine 10/09/2024 10:50 EST POCT GLUCOSE, INTERFACED Routine 10/09/2024 9:40 EST POCT GLUCOSE, INTERFACED Routine 10/09/2024 9:19 EST HEMODIALYSIS Routine 10/09/2024 6:20 EST ESRD (end stage renal disease) ([facility]) POCT GLUCOSE, INTERFACED Routine 10/06/2024 10:35 EST POCT GLUCOSE, INTERFACED Routine 10/06/2024 9:05 EST HEMODIALYSIS Routine 10/06/2024 6:24 EST ESRD (end stage renal disease) ([facility]) POCT GLUCOSE, INTERFACED Routine 10/04/2024 10:22 EST POCT GLUCOSE, INTERFACED Routine 10/04/2024 9:41 EST POCT GLUCOSE, INTERFACED Routine 10/04/2024 9:22 EST POCT GLUCOSE, INTERFACED Routine 10/04/2024 8:25 EST POCT GLUCOSE, INTERFACED Routine 10/04/2024 8:03 EST POCT GLUCOSE, INTERFACED Routine 10/04/2024 7:14 EST POCT GLUCOSE, INTERFACED Routine 10/04/2024 6:52 EST COMPLETE BLOOD COUNT Routine 10/04/2024 6:37 EST ESRD (end stage renal disease) ([facility]) HEMODIALYSIS Routine 10/04/2024 6:30 EST ESRD (end stage renal disease) ([facility]) POCT GLUCOSE, INTERFACED Routine 10/02/2024 10:48 EST POCT GLUCOSE, INTERFACED Routine 10/02/2024 9:53 EST POCT GLUCOSE, INTERFACED Routine 10/02/2024 9:33 EST HEMODIALYSIS Routine 10/02/2024 6:27 EST ESRD (end stage renal disease) ([facility]) POCT GLUCOSE, INTERFACED Routine 09/29/2024 10:24 EST POCT GLUCOSE, INTERFACED Routine 09/29/2024 9:36 EST POCT GLUCOSE, INTERFACED Routine 09/29/2024 9:14 EST HEMODIALYSIS Routine 09/29/2024 6:27 EST ESRD (end stage renal disease) ([facility]) POCT GLUCOSE, INTERFACED Routine 09/27/2024 11:11 EST POCT GLUCOSE, INTERFACED Routine 09/27/2024 10:48 EST POCT GLUCOSE, INTERFACED Routine 09/27/2024 9:02 EST COMPLETE BLOOD COUNT Routine 09/27/2024 6:41 EST ESRD (end stage renal disease) ([facility]) HEMODIALYSIS Routine 09/27/2024 6:18 EST ESRD (end stage renal disease) ([facility]) POSTDIALYSIS BUN WITH URR CALCULATION Routine 09/25/2024 11:14 EST ESRD (end stage renal disease) ([facility]) POCT GLUCOSE, INTERFACED Routine 09/25/2024 11:07 EST POCT GLUCOSE, INTERFACED Routine 09/25/2024 10:33 EST FERRITIN Routine 09/25/2024 6:39 EST ESRD (end stage renal disease) ([facility]) TRANSFERRIN SATURATION Routine 09/25/2024 6:39 EST ESRD (end stage renal disease) ([facility]) DIALYSIS ROUTINE - DIALYSIS ONLY (BUN, K, NA, CL, CO2, SANJEEV, ALB, MG, PHOS, ALKP, AST) Routine 09/25/2024 6:39 EST ESRD (end stage renal disease) ([facility]) PROFILE IRON STUDIES (INCLUDES IRON, IBC, AND FERRITIN) Routine 09/25/2024 6:39 EST ESRD (end stage renal disease) ([facility]) HEMODIALYSIS Routine 09/25/2024 6:31 EST ESRD (end stage renal disease) ([facility]) POCT GLUCOSE, INTERFACED Routine 09/22/2024 10:47 EST POCT GLUCOSE, INTERFACED Routine 09/22/2024 8:33 EST HEMODIALYSIS Routine 09/22/2024 6:25 EST ESRD (end stage renal disease) ([facility]) COMPLETE BLOOD COUNT Routine 09/20/2024 7:05 EST ESRD (end stage renal disease) ([facility]) HEMODIALYSIS Routine 09/20/2024 6:26 EST ESRD (end stage renal disease) ([facility]) POCT GLUCOSE, INTERFACED Routine 09/18/2024 11:45 EST POCT GLUCOSE, INTERFACED Routine 09/18/2024 11:31 EST POCT GLUCOSE, INTERFACED Routine 09/18/2024 11:25 EST POCT GLUCOSE, INTERFACED Routine 09/18/2024 11:19 EST POCT GLUCOSE, INTERFACED Routine 09/18/2024 11:10 EST HEMODIALYSIS Routine 09/18/2024 6:31 EST ESRD (end stage renal disease) ([facility]) HEMODIALYSIS Routine 09/15/2024 6:16 EST ESRD (end stage renal disease) ([facility]) COMPLETE BLOOD COUNT Routine 09/13/2024 6:37 EST ESRD (end stage renal disease) ([facility]) HEMODIALYSIS Routine 09/13/2024 6:32 EST ESRD (end stage renal disease) ([facility]) POCT GLUCOSE, INTERFACED Routine 09/11/2024 10:44 EST HEMODIALYSIS Routine 09/11/2024 6:23 EST ESRD (end stage renal disease) ([facility]) HEMODIALYSIS Routine 09/08/2024 6:23 EST ESRD (end stage renal disease) ([facility]) COMPLETE BLOOD COUNT Routine 09/06/2024 6:33 EST ESRD (end stage renal disease) ([facility]) HEMODIALYSIS Routine 09/06/2024 6:29 EST ESRD (end stage renal disease) ([facility]) HEMODIALYSIS Routine 09/04/2024 6:25 EST ESRD (end stage renal disease) ([facility]) LIPID PROFILE (INCLUDES CHOLESTEROL, TRIGLYCERIDES, HDL, LDL) Add-On 12/24/2023 12:33 EST HEMOGLOBIN A1C Add-On 11/07/2023 7:57 EST from Last 3 Months or Most Recently Relevant to Health Maintenance Results * (ABNORMAL) COMPLETE BLOOD COUNT (11/29/2024 6:34 EST) Only the most recent of13 resultswithin the time period is included. WBC 10.96(H) 4.00 - 10.40 K/cmm 11/29/2024 21:30 [facility] RBC 3.60(L) 4.36 - 5.78 M/cmm 11/29/2024 21:30 [facility] Hemoglobin 10.9(L) 13.8 - 17.3 g/dL 11/29/2024 21:30 [facility] HCT 34.1(L) 39.5 - 50.2 % 11/29/2024 21:30 [facility] MCV 95 81 - 95 fL 11/29/2024 21:30 [facility] MCH 30.3 27.6 - 33.0 pg 11/29/2024 21:30 [facility] MCHC 32.0(L) 32.8 - 36.4 g/dL 11/29/2024 21:30 [facility] RDW-CV 16.1(H) <14.2 % 11/29/2024 21:30 [facility] RDW-SD 56.0(H) <46.0 fl 11/29/2024 21:30 [facility] PLT 244 141 - 377 K/cmm 11/29/2024 21:30 [facility] MPV 12.0 9.5 - 12.7 fL 11/29/2024 21:30 [facility] Blood VENOUS BLOOD / Unknown Venipuncture / Unknown 11/29/2024 6:34 EST 11/29/2024 6:34 EST us Carlota Jin MD HEMATOLOGY & PF4 ORDERABL ES Final Result [facility] [address] [place] [address] * (ABNORMAL) POSTDIALYSIS BUN WITH URR CALCULATION (11/27/2024 11:08 EST) Only the most recent of3 resultswithin the time period is included. BUN, Postdialysis 28(H) 10 - 26 mg/dL 11/27/2024 22:36 [facility] Urea Reduction Rate 69.2 Not Established % 11/27/2024 22:36 EST [facility] Comment: NOTE: Reference range not established for Urea Reduction Rate. BUN 91(H) 10 - 26 mg/dL 11/27/2024 22:36 EST [facility] Blood VENOUS BLOOD / Unknown Venipuncture / Unknown 11/27/2024 11:08 EST 11/27/2024 11:08 EST Carlota Jin MD CHEMISTRY & BLOOD GAS ORD ERABLES Final Result Performing Organization Address [facility] de Phone Number [facility] [address] [place] [address] * (ABNORMAL) TRANSFERRIN SATURATION (11/27/2024 6:35 EST) Only the most recent of3 resultswithin the time period is included. Iron 33(L) 49 - 181 ??g/dL 11/27/2024 22:37 EST [facility] Iron Binding Capacity 212(L) 240 - 450 ??g/dL 11/27/2024 22:37 EST [facility] Transferrin Saturation 16 15 - 45 % 11/27/2024 22:37 EST [facility] Blood VENOUS BLOOD / Unknown Venipuncture / Unknown 11/27/2024 6:35 EST 11/27/2024 6:35 EST Carlota Jin MD CHEMISTRY & BLOOD GAS ORD ERABLES Final Result Performing Organization Address [facility] Co de Phone Number [facility] [address] [place] [address] * (ABNORMAL) DIALYSIS ROUTINE - DIALYSIS ONLY (BUN, K, NA, CL, CO2, SANJEEV, ALB, MG, PHOS, ALKP, AST) (11/27/2024 6:35 EST) Only the most recent of3 resultswithin the time period is included. Sodium 132(L) 136 - 145 mmol/L 11/27/2024 22:35 [facility] Potassium 8.3(H) 3.5 - 5.0 mmol/L 11/27/2024 22:35 [facility] Chloride 98 96 - 110 mmol/L 11/27/2024 22:35 [facility] CO2 Total 19(L) 22 - 32 mmol/L 11/27/2024 22:35 [facility] Calcium 8.0(L) 8.5 - 10.5 mg/dL 11/27/2024 22:35 [facility] Albumin 3.5 3.4 - 4.9 g/dL 11/27/2024 22:35 [facility] Phosphorus 9.5(H) 2.5 - 4.5 mg/dL 11/27/2024 22:35 [facility] Calcium Phos Product 76.0 See Note mg/dL 11/27/2024 22:35 [facility] Comment: NOTE: Reference range not established BUN, Predialysis 91(H) 10 - 26 mg/dL 11/27/2024 22:35 [facility] AST 20 15 - 46 U/L 11/27/2024 22:35 [facility] Alkaline Phosphatase 89 38 - 126 U/L 11/27/2024 22:35 [facility] Magnesium 2.4 1.7 - 2.8 mg/dL 11/27/2024 22:35 [facility] Anion Gap 15(H) 5 - 14 mmol/L 11/27/2024 22:35 [facility] Calculated Calcium 8.4(L) 8.9 - 10.5 mg/dL 11/27/2024 22:35 [facility] Blood VENOUS BLOOD / Unknown Venipuncture / Unknown 11/27/2024 6:35 EST 11/27/2024 6:35 EST us Carlota Jin MD CHEMISTRY & BLOOD GAS ORD ERABLES Final Result [facility] [address] [place] [address] * (ABNORMAL) FERRITIN (11/27/2024 6:35 EST) Only the most recent of3 resultswithin the time period is included. Pathologist [facility] Ferritin 393(H) 22 - 322 ng/mL 11/27/2024 23:02 EST [facility] Blood VENOUS BLOOD / Unknown Venipuncture / Unknown 11/27/2024 6:35 EST 11/27/2024 6:35 EST Carlota Jin MD CHEMISTRY & BLOOD GAS ORD ERABLES Final Result [facility] [address] [place] [address] * POCT GLUCOSE, INTERFACED (11/20/2024 9:32 EST) Only the most recent of69 resultswithin the time period is included. [facility] Glucose, POC 93 70 - 100 mg/dL 11/21/2024 8:29 EST [facility] HN LAB POC COMMENT (GLUCOSE) Test Performed by Nursing Services 11/21/2024 8:29 EST [facility] Blood CAPILLARY BLOOD / Unknown 11/20/2024 9:32 EST 11/21/2024 8:29 EST Carlota Jin MD POINT OF CARE TEST ORDERA BLES Final Result Performing Organization Address City/[facility]/ZIP Co de Phone Number [facility] [address] [place] [phone] * (ABNORMAL) VITAMIN D (25,OH) (10/30/2024 6:47 EST) Pathologist [facility] 25OH Vitamin D Tot 28(L) 30 - 100 ng/mL 10/31/2024 10:53 EST [facility] Comment: Vitamin D 25,OH Interpretive Ranges: Deficiency: ??<10.0 ng/mL Insufficiency: ??10.0 - 30.0 ng/mL Sufficiency: ??30.0 - 100.0 ng/mL Toxicity: ??>100.0 ng/mL Blood VENOUS BLOOD / Unknown Venipuncture / Unknown 10/30/2024 6:47 EST 10/30/2024 6:47 EST Result [facility] Carlota Jin MD CHEMISTRY & BLOOD GAS ORD ERABLES Final Result Performing Organization Address City/[facility]/ZIP Co de Phone Number [facility] [address] [place] [address] * DIALYSIS HEPATITIS- DIALYSIS USE ONLY (10/30/2024 6:47 EST) Hep B Surface Ag Negative Negative 10/31/19 11:36 [facility] Hep B Surface Ab, Quantitative 140.6 See Note mIU/mL 10/31/2024 11:36 [facility] Comment: Reference Range for Hep B Surface Ab, Quant: Positive: >= 10.0 mIU/mL Negative: ??< 10.0 mIU/mL Patient is presumed to be immune to infection with Hepatitis B Virus. Hep B Surface Ab, Qualitative Positive See Note 10/31/2024 11:36 [facility] Comment: Reference Range for Hep B Surface Ab, Qual: Unvaccinated: ??Negative Vaccinated: ??Positive Hepatitis B Core Ab, Total Negative Negative 10/31/2024 11:36 [facility] Hep C Antibody Negative Negative 10/31/2024 11:36 [facility] Blood VENOUS BLOOD / Unknown Venipuncture / Unknown 10/30/2024 6:47 EST 10/30/2024 6:47 EST Carlota Jin MD CHEMISTRY & BLOOD GAS ORD ERABLES Final Result Performing Organization Address [facility]/ZIP Co de Phone Number [facility] [address] [place] [address] * (ABNORMAL) PTH INTACT (10/30/2024 6:47 EST) Pathologist [facility] Intact PTH 641.9(H) 19.0 - 88.0 pg/mL 10/30/2024 23:18 EST [facility] Blood VENOUS BLOOD / Unknown Venipuncture / Unknown 10/30/2024 6:47 EST 10/30/2024 6:47 EST Carlota Jin MD CHEMISTRY & BLOOD GAS ORD ERABLES Final Result Performing Organization Address [facility] de Phone Number [facility] [address] [place] [address] * FOLATE (10/30/2024 6:47 EST) [facility] Folate >24.0 See Note ng/mL 10/30/2024 23:12 EST [facility] Comment: Reference Ranges for Folate: [...] ORD ERABLES Final Result Performing Organization Address [facility] Co de Phone Number [facility] [address] [place] [address] * VITAMIN B12 (10/30/2024 6:47 EST) [facility] Vitamin B12 342 211 - 911 pg/mL 10/30/2024 23:31 EST [facility] Blood VENOUS BLOOD / Unknown Venipuncture / Unknown 10/30/2024 6:47 EST 10/30/2024 6:47 EST us Carlota Jin MD CHEMISTRY & BLOOD GAS ORD ERABLES Final Result Performing Organization Address City/[facility]/ZIP Co de Phone Number [facility] [address] [place] [address] * (ABNORMAL) LIPID PROFILE (INCLUDES CHOLESTEROL, TRIGLYCERIDES, HDL, LDL) (12/24/2023 12:33 EST) Cholesterol 94 <200 mg/dL 12/24/2023 15:22 [facility] Comment:Note that therapeuti c goals will differ between patients based on cardiac risk factors and current medical therapy. HDL 40 >=40 mg/dl 12/24/2023 15:22 [facility] Comment:Note that therapeuti c goals will differ between patients based on cardiac risk factors and current medical therapy. LDL, Calculated <20 <160 mg/dL 15:22 [facility] Comment: Note that therapeutic goals will differ between patients based on cardiac risk factors and current medical therapy. Calculated LDL invalid (<20 mg/dL) Direct LDL measurement added by reflex. Triglyceride 217(H) <=150 mg/dL 12/24/2023 15:22 [facility] Comment:Note that therapeuti c goals will differ between patients based on cardiac risk factors and current medical therapy. Chol/HDL Ratio 2.4 See Note 12/24/2023 15:22 [facility] Comment:No reference range h as been established for CHOL/HDL ratio. Non HDL Cholesterol 54 <160 mg/dL 12/24/2023 15:22 [facility] Comment:Note that therapeuti c goals will differ between patients based on cardiac risk factors and current medical therapy. Blood VENOUS BLOOD / Unknown Venipuncture / Unknown 12/24/2023 12:33 EST 12/24/2023 13:19 EST us Sourav Kilgore PA-C CHEMISTRY & BLOOD GAS ORDE VASYL Final Result Performing Organization Address City/[facility]/ZIP Co de Phone Number [facility] [address] [place] [address] * (ABNORMAL) HEMOGLOBIN A1C (11/07/2023 7:57 EST) Hemoglobin A1c 11.6(H) <5.7 % 11/08/2023 11:44 EST [facility] Comment: Glycemic Status References: Normal: ??<5.7% Pre-Diabetes: ??5.7% - 6.4% Diagnostic of Diabetes: ??> or = 6.5% (if confirmed) Est Avg Glucose 286 mg/dL 11:44 EST [facility] Comment:The eAG represents t he A1c result expressed as average glucose in mg/dL. 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 Default/Not Discussed Care Teams Final Expense Agent Relationship Specialty Start Date End Date Ken Greer MD [facility] [place] [place] [address] PCP - General 07/07/23 Kiel Powers Paralegal Assistant Nephrology 05/31/24
--- OUTSIDE RECORDS SUMMARY | 2024-12-05 11:52 | XMS_ITS | Encounter Summary ---
Author Organization [facility] Address [address] [place] [address] Care Team Providers Care Sizer Machine Name Role Phone Ken Greer MD Primary Care Provider [phone] Kiel Powers Unavailable Unavailable Reason for Visit * Episode Based Medications (Routine) - New Request Specialty Diagnoses / Procedures Referred By Nader gardiner Referred To Contact Diagnoses ESRD (end stage renal disease) ([facility]) Carlota Jin MD [address] [place] [address], [facility] [address] [place] [address] Phone: tel: fax: [facility] [place] [address] [place] [address] Phone: tel: fax: Referral ID Status Reason Start Date Expiration Date V isits Requested Visits Authorized [id number] New Request 03/17/2024 1 1 Encounter Details Date Type Department Care Team (Latest Contact Info) Description 12/04/2024 6:45 EST Treatment [facility] [address] [place] [phone] Carlota Jin MD [address] [place] [address], [facility] [address] [place] [phone] ESRD (end stage renal disease) ([facility]) (Primary Dx); Secondary hyperparathyroidism ([facility]) Social History Tobacco Use Types Packs/Day Years Used Date Smoking Tobacco: Every Day Cigarettes 1 26.1 Started: 1998 Smokeless Tobacco: Never Alcohol Use Standard Drinks/Week Comments Yes 0 (1 standard drink = 0.6 oz pur e alcohol) Socially [facility] Utilities Answer Date Recorded In the [...] any time in the past 12 m [facility], were you homeless or living in a fpc (including now)? No 05/30/2024 [facility] - Inadequate Housing Answer Date Re corded What is your living situation today? I have a [facility] place to live 11/15/[address] you li ve. Do you have problems with any of the following? None of the above 11/15/2024 [facility] - Transportation Answer Date Record ed In the past 12 months, has l ack of reliable transportation kept you from medical appointments, meetings, work or from getting things needed for daily living? No 11/15/2024 [facility] - Personal Safety Answer Date Recor [...] scream or curse at you? Never 11/15/2024 [facility] - Financial Strain Answer Date Cornel rded How hard is it for you to pa y for the very basics like food, housing, medical care, and heating? Would you say it is: Not hard at all 11/15/2024 [facility] - Employment Answer Date Recorded Do you want help finding or keeping work or a job? I do not need or want help 11/15/2024 [facility] - Social Connections Answer Date Re corded If for any reason you need h elp with day-to-day activities such as bathing, preparing meals, shopping, managing finances, etc., do you get the help you need? I get all the help I need 11/15/2024 How often do you feel lonely or isolated from those around you? Never 11/15/2024 [facility] - Education Answer Date Recorded Do you speak a language other than [place]ian at [facility]? No 11/15/2024 Do you want help with school or training? For example, starting or completing job training or getting a high school diploma, GED or equivalent. No 11/15/2024 [facility] - Physical Activity Answer Date Rec [...] your living situation today? I have a [facility] place to live 05/30/2024 Think about [...] 14:11 EDT Sexual Orientation Not on file documented as of this encounter Last Filed Vital Signs Vital Sign Reading Time Taken Comments Blood Pressure - - Pulse - - Temperature - - Respiratory Rate 16 12/04/2024 0621 EST Oxygen Saturation - - Inhaled Oxygen Concentration - - Weight 83.1 kg (183 lb 3.2 oz) 12/04/[address] Height - - Body Mass Index 26.29 07/20/2024 1359 EDT documented in this encounter Functional Status * Are you deaf or do you have serious difficulty hearing? Answer Date of Assessment Author Yes 05/30/2024 18:25 EDT Daria Fonseca RN * Are you blind or do [...] Author Yes 05/30/2024 18:25 Daria Baca RN documented as of this encounter Mental Status * Because of a physical, mental, or emotional condition, do you have serious difficulty concentrating, remembering, or making decisions? (5 years old or older) Answer Entry Date Author No 05/30/2024 18:25 Daria Baca RN documented in this encounter Miscellaneous Notes * Flowsheet Note - Marcela Cox RN - 12/04/2024 1346 EST 12/04/24 1037 Post-Hemodialysis Assessment Total Blood Processed (L) 90.26 Liters On Line Clearance: spKt/V 1.47 spKt/V Dialyzer Clearance Lightly streaked Treatment UFR (ml:kg:hr) 13.86 ml:kg:hr Critline refill Not done Fluid Removed (L) 4.5 L Post-Dialysis Scale Weight 95.9 kg (211 lb 6.7 oz) Wheelchair Weight 17.2 kg (37 lb 14.7 oz) Prosthesis Weight 0 kg (0 lb) Post-Treatment Weight (kg) 78.7 Treatment Weight Change (kg) 4.4 kg Day Target Weight (kg) 79.1 Post Sitting/Lying BP (!) 134/102 Post Sitting/Lying pulse 52 Temp 36.7 ??C (98.1 ??F) Temp src Temporal Minutes Short -242 Post access assessment AVF/AFG Hemostasis achieved Yes Note 10 min hold with blue clamps, no issues Orientation Alert and Oriented x3 Yes Time Yes Place Yes Person Yes Cooperative Yes Disoriented No Discharge Ambulation Methods Departs via w/c Wrap up items Patient Response to Treatment Tolerated tx well. Removed 4.5L UF goal without difficulty. Comments No issues during tx, no concerns voiced post tx. documented in this encounter Plan of Treatment Upcoming Encounters Date Type Department Care Team (Late st Contact Info) Description 12/06/2024 6:45 EST Treatment [facility] [place] [address] [place], [place] [phone] Carlota Jin MD [address] [place] [phone] 12/08/2024 6:45 EST Treatment [facility] [place] [address] [place], [place] [phone] Carlota Jin MD [address] [place] [address], [address] [phone] 12/11/2024 6:45 EST Treatment [facility] [place] [address] [place], [place] [phone] Carlota Jin MD [address] [place] [phone] 12/13/2024 6:45 EST [facility] [address] [place], [place] [phone] Carlota Jin MD [address] [place] [phone] 12/15/2024 6:45 EST Treatment [facility] [address] [place], [place] [phone] Carlota Jin MD [facility] [address] [place] [phone] 12/18/2024 6:45 EST Treatment [facility] [place] [address] [place], [place] [address] Carlota Jin MD [facility], [facility] [address] [place] [phone] 12/20/2024 6:45 EST Treatment [facility] [place] [address] [place], [place] [phone] Carlota Jin MD 1 [facility], [facility] [address] [place] [phone] 12/22/2024 6:45 EST Treatment [facility] [place] [address] [place] [address] Carlota Jin MD [facility], [facility] [address] [place] [phone] 12/25/2024 6:45 EST Treatment [facility] [address] [place] [address] Carlota Jin MD [facility], [facility] [address] [place] [phone] 12/27/2024 6:45 EST Treatment [facility] [address] [place], [place] [phone] Carlota Jin MD 1 [facility], [facility] [address] [place] [phone] 12/29/2024 6:45 EST Treatment [facility] [place] [address] [place], [place] [phone] Carlota Jin MD 1 [facility], [facility] [address] [place] [phone] 01/01/2025 6:45 EDT Treatment [facility] [place] [address] [place], [place] [phone] Carlota Jin MD 1 [facility], [facility] [address] [place] [phone] 01/03/2025 6:45 EDT Treatment [facility] [place] [address] [place], [place] [phone] Carlota Jin MD 1 [facility], [facility] [address] [place] [phone] 01/05/2025 6:45 EDT Treatment [facility] [place] [address] [place], [place] [phone] Carlota Jin MD [address] [place] [address], [facility] [address] [place] [phone] 01/08/2025 6:45 EDT Treatment [facility] [place] [address] [place], [place] [phone] Carlota Jin MD 1 [facility], [facility] [address] [place] [phone] 01/10/2025 6:45 EDT Treatment [facility] [place] [address] [place], [place] [phone] Carlota Jin MD [facility], [facility] [address] [place] [phone] 01/12/2025 6:45 EDT Treatment [facility] [place] [address] [place], [place] [phone] Carlota Jin MD 1 [facility], [facility] [address] [place] [phone] 01/15/2025 6:45 EDT Treatment [facility] [place] [address] [place], [place] [phone] Carlota Jin MD 1 [facility], [facility] [address] [place] [phone] 01/17/2025 6:45 EDT Treatment [facility] [place] [address] [place], [place] [phone] Carlota Jin MD 1 [facility], [facility] [address] [place] [phone] 01/19/2025 6:45 EDT Treatment [facility] [address] [place], [place] [phone] Carlota Jin MD 1 [facility], [facility] [address] [place] [phone] 01/22/2025 6:45 EDT Treatment [facility] [place] [address] [place], [place] [phone] Carlota Jin MD 1 [facility], [facility] [address] [place] [phone] 01/24/2025 6:45 EDT Treatment [facility] [place] [address] [place], [place] [phone] Carlota Jin MD 1 [facility], [facility] [address] [place] [phone] 01/26/2025 6:45 EDT Treatment [facility] [place] [address] [place], [place] [phone] Carlota Jin MD 1 [facility], [facility] [address] [place] [phone] 01/29/2025 6:45 EDT Treatment [facility] [place] [address] [place], [place] [phone] Carlota Jin MD 1 [facility], [facility] [address] [place] [phone] 01/31/2025 6:45 EDT Treatment [facility] [place] [address] [place], [place] [phone] Carlota Jin MD 1 [facility], [facility] [address] [place] [phone] 02/02/2025 6:45 EDT Treatment [facility] [place] [address] [place], [place] [phone] Carlota Jin MD 1 [facility], [facility] [address] [place] [phone] 02/05/2025 6:45 EDT Treatment [facility] [place] [address] [place] [address] Carlota Jin MD 1 [facility], [facility] [address] [place] [phone] 02/07/2025 6:45 EDT Treatment [facility] [place] [address] [place] [address] Carlota Jin MD 1 [facility], [address] [phone] 02/09/2025 6:45 EDT Treatment [facility] [place] [address] [place], [place] [address] Carlota Jin MD 1 [facility], [address] [phone] 02/12/2025 6:45 EDT Treatment [facility] [place] [address] [place], [place] [phone] Carlota Jin MD 1 [facility], [address] [phone] 02/14/2025 6:45 EDT Treatment [facility] [place] [address] [place], [place] [phone] Carlota Jin MD 1 [facility], [address] [phone] 02/16/2025 6:45 EDT Treatment [facility] [place] [address] [place], [place] [phone] Carlota Jin MD 1 [facility], [facility] [address] [place] [phone] 02/19/2025 6:45 EDT Treatment [facility] [place] [address] [place] [address] Carlota Jin MD 1 [facility], Level [address] [place] [phone] 02/21/2025 6:45 EDT Treatment [facility] [place] [address] [place] [address] Carlota Jin MD 1 [facility], [facility] [address] [place] [phone] documented as of this encounter Procedures Procedure Name Priority Date/Time Associated Diagnosis Comments HEMODIALYSIS Routine 12/04/2024 6:21 EST ESRD (end stage renal disease) ([facility]) documented in this encounter Visit Diagnoses Diagnosis ESRD (end stage renal disease) ([facility])- Primary End stage renal disease Secondary hyperparathyroidism ([facility]) Secondary hyperparathyroidism (of renal origin) documented in this encounter Administered Medications Inactive Administered Medications - up to 3 most recent administrations Medication Order MAR Action Action Date Dose Rate Site amino acids-protein hydrolysate (LiquaCel) 16 gram-100 kcal/30 mL liquid in packet 30 mL 30 mL, oral, ONCE IN DIALYSIS, 1 dose, On Wed12/04/24 at 0645, RoutineIndications:ESRD (end stage renal disease) ([facility]) Given 12/04/2024 6:40 EST 30 mL calcium carbonate (TUMS) tablet 500 mg (200 mg elemental calcium) 2 Tablet 2 Tablet, oral, ONCE IN DIALYSIS, 1 dose, On Wed12/04/24 at 0645, Routine, DialysisIndications:ESRD (end stage renal disease) ([facility]),Secondary hyperparathyroidism ([facility]) Given 12/04/2024 6:40 EST 2 Tablets epoetin ken (EPOGEN) 20,000 unit/2 mL injection 5,000 Units 5,000 Units, intravenous, ONCE IN DIALYSIS, 1 dose, On Wed12/04/24 at 0645, Routine, DialysisIndications:ESRD (end stage renal disease) ([facility]) Given 12/04/2024 6:40 EST 5,000 Units heparin injection 3,000 Units 3,000 Units, intravenous, ONCE IN DIALYSIS, 1 dose, On Wed12/04/24 at 0645, Routine, Dialysis, Now x1 bolus 1500 units to be given at the beginning of dialysis 500 units/hour to be given over the course of dialysis (3000 units total). Stop 1 hour prior to end of treatment. To be administered per Policy [id number].Indications:ESRD (end stage renal disease) ([facility]) Given 12/04/2024 6:39 EST 3,000 Units iron sucrose (VENOFER) injection 200 mg 200 mg, intravenous, ONCE IN DIALYSIS, 1 dose, On Wed12/04/24 at 0645, Routine, DialysisIndications:ESRD (end stage renal disease) ([facility]) Given 12/04/2024 6:39 EST 200 mg documented in this encounter Orders Dialysis Count Last Ordered Date First Orde red Date HEMODIALYSIS 1 12/04/2024 documented in this encounter Care Teams Sizer Machine Relationship Specialty Start Date End Date Ken Greer MD [address] [place] [address] PCP - General 07/07/23 Kiel Powers Automatic Brine Mixer Operator Nephrology 05/31/24 documented as of this encounter
--- OUTSIDE RECORDS SUMMARY | 2024-12-05 11:52 | XMS_ITS | Encounter Summary ---
Author Organization [facility] Address [address] [place] [address] Care Team Providers Care Automatic Print Developer Name Role Phone Ken Greer MD Primary Care Provider [phone] Kiel Powers Unavailable Unavailable Encounter Details Date Type Department Care Team (Late st Contact Info) Description 12/04/2024 Documentation Visit [facility] [address] [place], [place] [id number] Marcela Cox, RN Social History Tobacco Use Types Packs/Day Years Used Date Smoking Tobacco: Every Day Cigarettes 1 26.1 Started: 1998 Smokeless Tobacco: Never Alcohol Use Standard Drinks/Week Comments Yes 0 (1 standard drink = 0.6 oz pur e alcohol) Socially [facility] Utilities Answer Date Recorded In the past 12 months has e electric, gas, oil, or water company [...] any time in the past 12 m [facility], were you homeless or living in a detention (including now)? No 05/30/2024 [facility] - Inadequate Housing Answer Date Re corded What is your living situation today? I have a [facility] place to live 11/15/[address] you li ve. Do you have problems with any of the following? None of the above 11/15/2024 [facility] - Transportation Answer Date Record ed In the past 12 months, has l ack of reliable transportation kept you from medical appointments, meetings, work or from getting things needed for daily living? No 11/15/2024 [facility] - Personal Safety Answer Date Recor ded [...] scream or curse at you? Never 11/15/2024 [facility] - Financial Strain Answer Date Cornel rded How hard is it for you to pa y for the very basics like food, housing, medical care, and heating? Would you say it is: Not hard at all 11/15/2024 [facility] - Employment Answer Date Recorded Do you want help finding or keeping work or a job? I do not need or want help 11/15/2024 [facility] - Social Connections Answer Date Re corded If for any reason you need h elp with day-to-day activities such as bathing, preparing meals, shopping, managing finances, etc., do you get the help you need? I get all the help I need 11/15/2024 How often do you feel lonely or isolated from those around you? Never 11/15/2024 [facility] - Education Answer Date Recorded Do you speak a language other than [place] at [facility]? No 11/15/2024 Do you want help with school or training? For example, starting or completing job training or getting a high school diploma, GED or equivalent. No 11/15/2024 [facility] - Physical Activity Answer Date Rec orded [...] your living situation today? I have a [facility] place to live 05/30/2024 Think about the [...] In the past 12 months has th [employer], gas, oil, or water company threatened to shut off services in your home? No 05/30/2024 Sex and Gender Information Value Date Recorded Sex Assigned at Not on file Legal Sex Male 18:49 EST Gender Identity Male 07/07/2023 14:11 EDT Sexual Orientation Not on file documented as of this encounter Functional Status * Are you [...] Daria Baca RN documented in this encounter Progress Notes * Marcela Cox RN - 12/04/2024 1041 EST 12/04/24 10:43 [facility] DIALYSIS MEDICATION RECONCILIATION Medication review of home medications (prescriptions, knwr-jhk-bjitkzc, herbals, vitamin/mineral/dietary (nutritional) supplements, medical marijuana, and recreational) was completed through: Patient/caregiver given printed prescriptions/medication summary and reviewed for accuracy. Current Medications Current Outpatient Medications Medication acetaminophen (TYLENOL) 325 mg tablet albuterol 90 mcg/actuation HFA aerosol inhaler inhaler amLODIPine (NORVASC) 10 mg tablet apixaban (ELIQUIS) 5 mg tablet aspirin chewable 81 mg tablet atorvastatin (LIPITOR) 40 mg tablet calcium carbonate (TUMS) 200 mg calcium (500 mg) tablet,chewable carvediloL (COREG) 12.5 mg tablet cholecalciferol, Vitamin D3, 25 mcg (1,000 unit) tablet cyclobenzaprine (FLEXERIL) 10 mg tablet dilTIAZem (CARDIZEM CD) 120 mg capsule DULoxetine (CYMBALTA) 20 mg delayed release capsule HYDROmorphone (DILAUDID) 2 mg tablet insulin aspart U-100 (NOVOLOG FLEXPEN) 100 unit/mL (3 mL) injectable pen insulin glargine 100 unit/mL (3 mL) injection pen insulin pen needles 32G x 5/32 oxyCODONE-acetaminophen (PERCOCET) 5-325 mg per tablet pantoprazole (PROTONIX) 40 mg tablet polyethylene glycol 3350 (MIRALAX) 17 gram packet pregabalin (LYRICA) 100 mg capsule SUSY-LOCO 0.8 mg tablet senna-docusate (SENNA PLUS) 8.6-50 mg per tablet sevelamer carbonate (RENVELA) 800 mg tablet sodium zirconium cyclosilicate (LOKELMA) 10 gram powder in packet tiZANidine (ZANAFLEX) 4 mg tablet torsemide (DEMADEX) 100 mg tablet No current facility-administered medications for this visit. Marcela Cox RN documented in this encounter Plan of Treatment Upcoming Encounters Date Type Department Care Team (Late st Contact Info) Description 12/06/2024 6:45 EST Treatment [address] [place], [place] [phone] Carlota Jin MD 1 [facility], Level [address] [place] [phone] 12/08/2024 6:45 EST Treatment [facility] - [place] [address] [place], [place] [id number] Carlota Jin MD 1 [facility], [facility] [address] [place] [phone] 12/11/2024 6:45 EST Treatment [facility] - [place] [address] [place], [place] [phone] Carlota Jin MD 1 [facility], [facility] [address] [place] [phone] 12/13/2024 6:45 EST Treatment [facility] - [place] [address] [place], [place] [phone] Carlota Jin MD 1 [facility], [facility] [address] [place] [phone] 12/15/2024 6:45 EST Treatment [facility] - [place] [address] [place], [place] [phone] Carlota Jin MD 1 [facility], [address] [phone] 12/18/2024 6:45 EST Treatment [facility] - [place] [address] [place], [place] [phone] Carlota Jin MD 1 [facility], [facility] [address] [place] [phone] 12/20/2024 6:45 EST Treatment [facility] - [place] [address] [place], [place] [phone] Carlota Jin MD 1 [facility] [address] [place] [phone] 12/22/2024 6:45 EST Treatment [facility] - [place] [address] [place], [place] [phone] Carlota Jin MD 1 [facility], [facility] [address] [place] [phone] 12/25/2024 6:45 EST Treatment [facility] - [place] [address] [place], [place] [phone] Carlota Jin MD 1 [facility], [facility] [address] [place] [phone] 12/27/2024 6:45 EST Treatment [facility] - [place] [address] [place], [place] [phone] Carlota Jin MD 1 [facility], [facility] [address] [place] [phone] 12/29/2024 6:45 EST Treatment [facility] [address] [place], [place] [phone] Carlota Jin MD 1 [facility], [facility] [address] [place] [phone] 01/01/2025 6:45 EDT Treatment [facility] [address] [place], [place] [phone] Carlota Jin MD 1 [facility], [facility] [address] [place] [phone] 01/03/2025 6:45 EDT Treatment [facility] - [place] [address] [place], [place] [id number] Carlota Jin MD 1 [facility], [facility] [address] [place] [phone] 01/05/2025 6:45 EDT Treatment [facility] - [place] [address] [place], [place] [phone] Carlota Jin MD [address] [place] [address], [address] [phone] 01/08/2025 6:45 EDT Treatment [facility] - [place] [address] [place], [place] [phone] Carlota Jin MD [address] [place] [address], [address] [phone] 01/10/2025 6:45 EDT Treatment [facility] - [place] [address] [place], [place] [phone] Carlota Jin MD [address] [place] [address], [address] [phone] 01/12/2025 6:45 EDT Treatment [facility] - [place] [address] [place], [place] [phone] Carlota Jin MD [address] [place] [address], [facility] [address] [place] [phone] 01/15/2025 6:45 EDT Treatment [facility] - [place] [address] [place], [place] [phone] Carlota Jin MD 1 [facility], Level [address] [place] [phone] 01/17/2025 6:45 EDT Treatment [facility]ial[facility] - [place] [address] [place], [place] [phone] Carlota Jin MD 1 [facility], [facility] [address] [place] [phone] 01/19/2025 6:45 EDT Treatment [facility] [address] [place], [place] [id number] Carlota Jin MD 1 [facility], [facility] [address] [place] [phone] 01/22/2025 6:45 EDT Treatment [facility] - [place] [address] [place], [place] [phone] Carlota Jin MD 1 [facility], [facility] [address] [place] [phone] 01/24/2025 6:45 EDT Treatment [facility] [address] [place], [place] [id number] Carlota Jin MD 1 [facility], [facility] [address] [place] [phone] 01/26/2025 6:45 EDT Treatment [facility] [address] [place], [place] [id number] Carlota Jin MD 1 [facility], [facility] [address] [place] [phone] 01/29/2025 6:45 EDT Treatment [facility] - [place] [address] [place], [place] [id number] Carlota Jin MD 1 [facility], [facility] [address] [place] [phone] 01/31/2025 6:45 EDT Treatment [facility] - [place] [address] [place], [place] [phone] Carlota Jin MD 1 [facility], [facility] [address] [place] [phone] 02/02/2025 6:45 EDT Treatment [facility] - [place] [address] [place] [address] Carlota Jin MD [address] [place] [address], [facility] [address] [place] [phone] 02/05/2025 6:45 EDT Treatment [facility] - [place] [address] [place], [place] [phone] Carlota Jin MD 1 [facility], [facility] [address] [place] [phone] 02/07/2025 6:45 EDT Treatment [facility] - [place] [address] [place], [place] [id number] Carlota Jin MD 1 [facility], [facility] [address] [place] [phone] 02/09/2025 6:45 EDT Treatment [facility] - [place] [address] [place], [place] [phone] Carlota Jin MD 1 [facility], [facility] [address] [place] [phone] 02/12/2025 6:45 EDT Treatment [facility] - [place] [address] [place], [place] [phone] Carlota Jin MD 1 [facility], [facility] [address] [place] [phone] 02/14/2025 6:45 EDT Treatment [facility] - [place] [address] [place] [address] Carlota Jin MD 1 [facility], [address] [phone] 02/16/2025 6:45 EDT Treatment [facility] - [place] [address] [place], [place] [phone] Carlota Jin MD 1 [facility], [address] [phone] 02/19/2025 6:45 EDT Treatment [facility] - [place] [address] [place] [address] Carlota Jin MD 1 [facility], [facility] [address] [place] [phone] 02/21/2025 6:45 EDT Treatment [facility] - [place] [address] [place], [place] [phone] Carlota Jin MD 1 [facility], [facility] [address] [place] [phone] documented as of this encounter Visit Diagnoses Not on filedocumented in this encounter Historical Medications * This list may reflect changes made after this encounter. oxyCODONE-acetami nophen (PERCOCET) 5-325 mg per tablet Take 1 Tablet by mouth every 4 hours as needed for Pain. Daily Max: 6 Tablets 11/29/2024 cyclobenzaprine (FLEXERIL) 10 mg tablet take one tablet by mouth three times a day as needed for spasm 11/29/2024 added in this encounter Care Teams Automatic Print Developer Relationship Specialty Start Date End Date Ken Greer MD [facility] [place] [address] PCP - General 07/07/23 Kiel Powers [employer] Nephrology 05/31/24 documented as of this encounter
--- OUTSIDE RECORDS SUMMARY | 2024-12-05 11:53 | XMS_ITS | Encounter Summary ---
Author Organization [facility] Address [address] [place] [address] Care Team Providers Care Take Down Inspector Name Role Phone Ken Greer MD Primary Care Provider [phone] Kiel Powers Unavailable Unavailable Reason for Visit * Episode Based Medications (Routine) - New Request Specialty Diagnoses / Procedures Referred By Nader gardiner Referred To Contact Diagnoses ESRD (end stage renal disease) ([facility] Carlota Jin MD [address] [place] [address], [facility] [address] [place] [address] Phone: tel: fax: [facility] [place] [address] [place] [address] Phone: tel: fax: Referral ID Status Reason Start Date Expiration Date V isits Requested Visits Authorized [id number] New Request 03/17/2024 1 1 Encounter Details Date Type Department Care Team (Latest Contact Info) Description 11/27/2024 6:45 EST Treatment [facility] [address] [place] [phone] Carlota Jin MD [address] [place] [address], [facility] [address] [place] [address] ESRD (end stage renal disease) ([facility]) (Primary Dx); Secondary hyperparathyroidism ([facility]) Social History Tobacco Use Types Packs/Day Years Used Date Smoking Tobacco: Every Day Cigarettes 1 26.1 Started: 1998 Smokeless Tobacco: Never Alcohol Use Standard Drinks/Week Comments Yes 0 (1 standard drink = 0.6 oz pur e alcohol) Socially [facility] Utilities Answer Date Recorded In the past [...] any time in the past 12 [facility], were you homeless or living in a skilled nursing (including now)? No 05/30/2024 [facility] - Inadequate Housing Answer Date Re corded What is your living situation today? I have a [facility] place to live 11/15/[address] you li ve. Do you have problems with any of the following? None of the above 11/15/2024 [facility] - Transportation Answer Date Record ed In the past 12 months, has l ack of reliable transportation kept you from medical appointments, meetings, work or from getting things needed for daily living? No 11/15/2024 [facility] - Personal Safety Answer Date Recor ded [...] scream or curse at you? Never 11/15/2024 [facility] - Financial Strain Answer Date Cornel rded How hard is it for you to pa y for the very basics like food, housing, medical care, and heating? Would you say it is: Not hard at all 11/15/2024 [facility] - Employment Answer Date Recorded Do you want help finding or keeping work or a job? I do not need or want help 11/15/2024 [facility] - Social Connections Answer Date Re corded If for any reason you need h elp with day-to-day activities such as bathing, preparing meals, shopping, managing finances, etc., do you get the help you need? I get all the help I need 11/15/2024 How often do you feel lonely or isolated from those around you? Never 11/15/2024 [facility] - Education Answer Date Recorded Do you speak a language other than [facility] [facility]? No 11/15/2024 Do you want help with school or training? For example, starting or completing job training or getting a high school diploma, GED or equivalent. No 11/15/2024 [facility] - Physical Activity Answer Date Rec orded [...] your living situation today? I have a [facility] place to live 05/30/2024 Think about the [...] - Temperature - - Respiratory Rate 16 11/27/2024 0619 EST Oxygen Saturation - - Inhaled Oxygen Concentration - - Weight 80.8 kg (178 lb 2.1 oz) 11/27/[address] Height - - Body Mass Index 25.56 07/20/2024 1359 EDT documented in this encounter [...] Flowsheet Note - Marcela Cox RN - 11/27/2024 1346 EST 11/27/24 1046 Post-Hemodialysis Assessment Total Blood Processed (L) 90.11 Liters On Line Clearance: spKt/V 1.47 spKt/V Dialyzer Clearance Lightly streaked Treatment UFR (ml:kg:hr) 18.94 ml:kg:hr Final Critline Profile (%/hr) -1.25 Final Profile Profile A Critline refill Negative (H1: 37.8 H2: 37.4) Fluid Removed (L) 4.3 L Post-Dialysis Scale Weight 108.9 kg (240 lb 1.3 oz) Wheelchair Weight 33.9 kg (74 lb 11.8 oz) Prosthesis Weight 0 kg (0 lb) Post-Treatment Weight (kg) 75 Treatment Weight Change (kg) 5.8 kg Day Target Weight (kg) 77 Post Sitting/Lying BP 163/88 Post Sitting/Lying pulse 82 Temp 36.6 ??C (97.9 ??F) Temp src Temporal Minutes Short -245 Post access assessment Bruit present: Yes Thrill Present AVF/AFG Hemostasis achieved Yes Note Patient held for 10mins with blue clamps without issues Orientation Alert and Oriented x3 Yes Time Yes Place Yes Person Yes Cooperative Yes Disoriented No Discharge Ambulation Methods Departs via w/c Wrap up items Patient Response to Treatment Tolerated tx well. Removed 4.3L UF goal without difficulty. Comments likely misweight either pre tx or post as post weight 2kg lower than TW, no concerns voiced post tx. * Dialysis Rounding - Carlota Jin MD - 11/27/2024 0645 EST TELEMEDICINE VIDEO VISIT Today's visit was provided through telemedicine video conferencing: I have reviewed the appropriateness of using video technology with the patient with regards to today's visit. The location of the patient : Not at home (another medical/non-medical, personal spaces outside [facility]) The location of the provider: Office The following people and their roles were present for today's visit: Appointment Provider: MD Gerson Valdivia RN Alison F Fitzgerald, MD Dialysis Provider's Routine Assessment Gerson Bruner was seen and examined as appropriate during Dialysis. Pertinent lab results were reviewed. Changes since last visit: None Changes to current prescriptions/orders: None Ongoing issues with labile blood sugars. He had an appointment with PCP but then cancelled it. It is unclear to me how his diabetes is being managed as an outpatient. I have changed his regimen to be10 units after dialysis and 10 units at night. He does still have some significant lows and highs. I will try to reach out to PCP in the next few days. Of note, he says that he had a donut for breakfast. We discussed choosing an egg sandwich instead. He is feeling very tired and weak on dialysis today. Denies fevers, chills. Will monitor. Carlota iJn MD The concept of ???Telemedicine?? has been described to the patient.? Patient has been informed of the anticipated benefits and possible risks.? Patient understands the information provided regardingtelemedicine, has had the opportunity to ask questions about this information, and all questions have been answered to patient???s satisfaction. Patient consents for the use of telemedicine in his/her medical care and authorizes the transmission of any relevant medical information to providers and their staff involved in patient???s medical or mental health care. Patient understands that they maybe responsible for copays, deductible or coinsurance for this service. documented in this encounter Plan of Treatment Upcoming Encounters Date Type Department Care Team (Late st Contact Info) Description 12/06/2024 6:45 EST Treatment [facility] [address] [place], [place] [phone] aCrlota iJn MD 1 [facility], [facility] [address] [place] [phone] 12/08/2024 6:45 EST Treatment [facility] [address] [place], [place] [phone] Carlota Jin MD 1 [facility], [facility] [address] [place] [phone] 12/11/2024 6:45 EST Treatment [facility] [address] [place], [place] [phone] Carlota Jin MD 1 [facility], [facility] [address] [place] [phone] 12/13/2024 6:45 EST Treatment [facility] [address] [place], [place] [phone] Carlota Jin MD 1 [facility], [facility] [address] [place] [phone] 12/15/2024 6:45 EST Treatment [facility] [place] [address] [place], [place] [address] Carlota Jin MD 1 [facility], [address] [phone] 12/18/2024 6:45 EST Treatment [facility] [place] [address] [place] [address] Carlota Jin MD 1 [facility], [address] [phone] 12/20/2024 6:45 EST Treatment [facility] [place] [address] [place], [place] [phone] Carlota Jin MD 1 [facility], [address] [phone] 12/22/2024 6:45 EST Treatment [facility] [place] [address] [place], [place] [phone] Carlota Jin MD 1 [facility], [address] [phone] 12/25/2024 6:45 EST Treatment [facility] [address] [place], [place] [id number] Carlota Jin MD [address] [phone] 12/27/2024 6:45 EST Treatment [facility] [address] [place], [place] [phone] Carlota Jin MD 1 [facility], [address] [phone] 12/29/2024 6:45 EST Treatment [facility] [place] [address] [place], [place] [id number] Carlota Jin MD 1 [facility], [facility] [address] [place] [phone] 01/01/2025 6:45 EDT Treatment [facility] [place] [address] [place], [place] [phone] Carlota Jin MD 1 [facility], [facility] [address] [place] [phone] 01/03/2025 6:45 EDT Treatment [facility] [place] [address] [place] [address] Carlota Jin MD 1 [facility], [facility] [address] [place] [phone] 01/05/2025 6:45 EDT Treatment [facility] [place] [address] [place], [place] [phone] Carlota Jin MD 1 [facility], [facility] [address] [place] [phone] 01/08/2025 6:45 EDT Treatment [facility] [place] [address] [place], [place] [phone] Carlota Jin MD 1 [facility], [facility] [address] [place] [phone] 01/10/2025 6:45 EDT Treatment [facility] [place] [address] [place], [place] [phone] Carlota Jin MD 1 [facility], [facility] [address] [place] [phone] 01/12/2025 6:45 EDT Treatment [facility] [place] [address] [place], [place] [phone] Carlota Jin MD 1 [facility], [facility] [address] [place] [phone] 01/15/2025 6:45 EDT Treatment [facility] [place] [address] [place], [place] [phone] Carlota Jin MD 1 [facility], [address] [phone] 01/17/2025 6:45 EDT Treatment [facility] [place] [address] [place], [place] [phone] Carlota Jin MD [address] [phone] 01/19/2025 6:45 EDT Treatment [facility] [place] [address] [place], [place] [phone] Carlota Jin MD [address] [phone] 01/22/2025 6:45 EDT Treatment [facility] [place] [address] [place], [place] [phone] Carlota Jin MD 1 [facility] [address] [place] [phone] 01/24/2025 6:45 EDT Treatment [facility] [place] [address] [place], [place] [phone] Carlota Jin MD 1 [facility], [facility] [address] [place] [phone] 01/26/2025 6:45 EDT Treatment [facility] [place] [address] [place], [place] [phone] Carlota Jin MD 1 [facility], [facility] [address] [place] [phone] 01/29/2025 6:45 EDT Treatment [facility] [place] [address] [place], [place] [phone] Carlota Jin MD 1 [facility], [facility] [address] [place] [phone] 01/31/2025 6:45 EDT Treatment [facility] [place] [address] [place] [address] Carlota Jin MD 1 [facility], [facility] [address] [place] [phone] 02/02/2025 6:45 EDT Treatment [facility] [place] [address] [place], [place] [phone] Carlota Jin MD 1 [facility], [facility] [address] [place] [phone] 02/05/2025 6:45 EDT Treatment [facility] [place] [address] [place], [place] [phone] Carlota Jin MD 1 [facility], [facility] [address] [place] [phone] 02/07/2025 6:45 EDT Treatment [facility] [place] [address] [place], [place] [phone] Carlota Jin MD [address] [place] [address], [address] [phone] 02/09/2025 6:45 EDT Treatment [facility] [place] [address] [place], [place] [phone] Carlota Jin MD [address] [place] [address], [address] [phone] 02/12/2025 6:45 EDT Treatment [facility] [place] [address] [place], [place] [phone] Carlota Jin MD [address] [place] [address], [facility] [address] [place] [phone] 02/14/2025 6:45 EDT Treatment [facility] [place] [address] [place], [place] [phone] Carlota Jin MD 1 [facility], [facility] [address] [place] [phone] 02/16/2025 6:45 EDT Treatment [facility] [place] [address] [place], [place] [phone] Carlota Jin MD 1 [facility] [address] [place] [phone] 02/19/2025 6:45 EDT Treatment [facility] [place] [address] [place], [place] [phone] Carlota Jin MD 1 [facility], [facility] [address] [place] [phone] 02/21/2025 6:45 EDT Treatment [facility] [place] [address] [place] [phone] Carlota Jin MD 1 [facility], [facility] [address] [place] [phone] documented as of this encounter Procedures Procedure Name Priority Date/Time Associated Diagnosis Comments POSTDIALYSIS BUN WITH URR CALCULATION Routine 11/27/2024 11:08 EST ESRD (end stage renal disease) ([facility]) TRANSFERRIN SATURATION Routine 11/27/2024 6:35 EST ESRD (end stage renal disease) ([facility]) DIALYSIS ROUTINE - DIALYSIS ONLY (BUN, K, NA, CL, CO2, SANJEEV, ALB, MG, PHOS, ALKP, AST) Routine 11/27/2024 6:35 EST ESRD (end stage renal disease) ([facility]) PROFILE IRON STUDIES (INCLUDES IRON, IBC, AND FERRITIN) Routine 11/27/2024 6:35 EST ESRD (end stage renal disease) ([facility]) FERRITIN Routine 11/27/2024 6:35 EST ESRD (end stage renal disease) ([facility]) HEMODIALYSIS Routine 11/27/2024 6:19 EST ESRD (end stage renal disease) ([facility]) documented in this encounter Results * (ABNORMAL) POSTDIALYSIS BUN WITH URR CALCULATION (11/27/2024 11:08 EST) BUN, Postdialysis 28(H) 10 - 26 mg/dL 11/27/2024 22:36 [facility] Urea Reduction Rate 69.2 Not Established % 11/27/2024 22:36 [facility] Comment: NOTE: Reference range not established for Urea Reduction Rate. BUN 91(H) 10 - 26 mg/dL 11/27/2024 22:36 [facility] Blood VENOUS BLOOD / Unknown Venipuncture / Unknown 11/27/2024 11:08 EST 11/27/2024 11:08 EST Carlota Jin MD CHEMISTRY & BLOOD GAS ORD ERABLES Final Result Performing Organization Address [facility] Co de Phone Number [facility] [address] [place] [address] * (ABNORMAL) FERRITIN (11/27/2024 6:35 EST) Pathologist [facility] Ferritin 393(H) 22 - 322 ng/mL 11/27/2024 23:02 [facility] Blood VENOUS BLOOD / Unknown Venipuncture / Unknown 11/27/2024 6:35 EST 11/27/2024 6:35 EST Carlota Jin MD CHEMISTRY & BLOOD GAS ORD ERABLES Final Result Performing Organization Address City/[facility]/ZIP Co de Phone Number [facility] [address] [place] [address] * (ABNORMAL) TRANSFERRIN SATURATION (11/27/2024 6:35 EST) Pathologist [facility] Iron 33(L) 49 - 181 ??g/dL 11/27/2024 22:37 [facility] Iron Binding Capacity 212(L) 240 - 450 ??g/dL 11/27/2024 22:37 [facility] Transferrin Saturation 16 15 - 45 % 11/27/2024 22:37 [facility] Blood VENOUS BLOOD / Unknown Venipuncture / Unknown 11/27/2024 6:35 EST 11/27/2024 6:35 EST us Carlota Jin MD CHEMISTRY & BLOOD GAS ORD ERABLES Final Result [facility] [address] [place] [address] * (ABNORMAL) DIALYSIS ROUTINE - DIALYSIS ONLY (BUN, K, NA, CL, CO2, SANJEEV, ALB, MG, PHOS, ALKP, AST) (11/27/2024 6:35 EST) Sodium 132(L) 136 - 145 mmol/L 11/27/2024 22:35 [facility] Potassium 8.3(H) 3.5 - 5.0 mmol/L 11/27/2024 22:35 [facility] Chloride 98 96 - 110 mmol/L 11/27/2024 22:35 [facility] CO2 Total 19(L) 22 - 32 mmol/L 11/27/2024 22:35 [facility] Calcium 8.0(L) 8.5 - 10.5 mg/dL 11/27/2024 22:35 [facility] Albumin 3.5 3.4 - 4.9 g/dL 11/27/2024 22:35 [facility] Phosphorus 9.5(H) 2.5 - 4.5 mg/dL 11/27/2024 22:35 [facility] Calcium Phos Product 76.0 See Note mg/dL 11/27/2024 22:35 [facility] Comment: NOTE: Reference range not established BUN, Predialysis 91(H) 10 - 26 mg/dL 11/27/2024 22:35 [facility] AST 20 15 - 46 U/L 11/27/2024 22:35 [facility] Alkaline Phosphatase 89 38 - 126 U/L 11/27/2024 22:35 EST [facility] Magnesium 2.4 1.7 - 2.8 mg/dL 11/27/2024 22:35 EST [facility] Anion Gap 15(H) 5 - 14 mmol/L 11/27/2024 22:35 EST [facility] Calculated Calcium 8.4(L) 8.9 - 10.5 mg/dL 11/27/2024 22:35 EST [facility] Blood VENOUS BLOOD / Unknown Venipuncture / Unknown 11/27/2024 6:35 EST 11/27/2024 6:35 EST us Carlota Jin MD CHEMISTRY & BLOOD GAS ORD ERABLES Final Result [facility] [address] [place] [address] documented in this encounter Visit Diagnoses Diagnosis ESRD (end stage renal disease) ([facility])- Primary End stage renal disease Secondary hyperparathyroidism ([facility]) Secondary hyperparathyroidism (of renal origin) documented in this encounter Administered Medications Inactive Administered Medications - up to 3 most recent administrations Medication Order MAR Action Action Date Dose Rate Site amino acids-protein hydrolysate (LiquaCel) 16 gram-100 kcal/30 mL liquid in packet 30 mL 30 mL, oral, ONCE IN DIALYSIS, 1 dose, On Wed11/27/24 at 0645, RoutineIndications:ESRD (end stage renal disease) ([facility]) Given 11/27/2024 6:50 EST 30 mL calcium carbonate (TUMS) tablet 500 mg (200 mg elemental calcium) 2 Tablet 2 Tablet, oral, ONCE IN DIALYSIS, 1 dose, On Wed11/27/24 at 0645, Routine, DialysisIndications:ESRD (end stage renal disease) ([facility]),Secondary hyperparathyroidism ([facility]) Given 11/27/2024 6:50 EST 2 Tablets epoetin ken (EPOGEN) 20,000 unit/2 mL injection 5,000 Units 5,000 Units, intravenous, ONCE IN DIALYSIS, 1 dose, On Wed11/27/24 at 0645, Routine, DialysisIndications:ESRD (end stage renal disease) [facility] Given 11/27/2024 6:51 EST 5,000 Units heparin injection 3,000 Units 3,000 Units, intravenous, ONCE IN DIALYSIS, 1 dose, On 11/27/24 at 0645, Routine, Dialysis, Now x1 bolus 1500 units to be given at the beginning of dialysis 500 units/hour to be given over the course of dialysis (3000 units total). Stop 1 hour prior to end of treatment. To be administered per Policy [id number].Indications:ESRD (end stage renal disease) ([facility]) Given 11/27/2024 6:51 EST 3,000 Units documented in this encounter Orders Dialysis Count Last Ordered Date First Orde red Date HEMODIALYSIS 1 11/27/2024 documented in this encounter Care Teams Take Down Inspector Relationship Specialty Start Date End Date Ken Greer MD [address] [place] [address] PCP - General 07/07/23 Kiel Powers Medical Receptionist Nephrology 05/31/24 documented as of this encounter
--- OUTSIDE RECORDS SUMMARY | 2024-12-05 11:53 | XMS_ITS | Encounter Summary ---
Author Organization [facility] Address [address] [place] [address] Care Team Providers Care Managed Care Provider Name Role Phone Ken Greer MD Primary Care Provider [phone] Kiel Powers Unavailable Unavailable Encounter Details Date Type Department Care Team (Late st Contact Info) Description 11/15/2024 Documentation Visit [facility] [address] [place] [address] Aleax Estrada, [facility] [address] [place] [address] Social History Tobacco Use Types Packs/Day Years Used Date Smoking Tobacco: Every Day Cigarettes 1 26.1 Started: 1998 Smokeless Tobacco: Never Alcohol Use Standard Drinks/Week Comments Yes 0 (1 standard drink = 0.6 oz pur e alcohol) Socially [facility] Utilities Answer Date Recorded In the past 12 months has [facility] [employer], gas, oil, or water [employer] threatened to shut off services in your [...] any time in the past 12 m [facility], were you homeless or living in a [place] [facility] care facility (including now)? No 05/30/2024 [facility] - Inadequate Housing Answer Date Re corded What is your living situation today? I have a [facility] place to live 11/15/[address] you li ve. Do you have problems with any of the following? None of the above 11/15/2024 [facility] - Transportation Answer Date Record ed In the past 12 months, has l ack of reliable transportation kept you from medical appointments, meetings, work or from getting things needed for daily living? No 11/15/2024 [facility] - Personal Safety Answer Date Recor ded [...] scream or curse at you? Never 11/15/2024 [facility] - Financial Strain Answer Date Cornel rded How hard is it for you to pa y for the very basics like food, housing, medical care, and heating? Would you say it is: Not hard at all 11/15/2024 [facility] - Employment Answer Date Recorded Do you want help finding or keeping work or a job? I do not need or want help 11/15/2024 [facility] - Social Connections Answer Date Re corded If for any reason you need h elp with day-to-day activities such as bathing, preparing meals, shopping, managing finances, etc., do you get the help you need? I get all the help I need 11/15/2024 How often do you feel lonely or isolated from those around you? Never 11/15/2024 [facility] - Education Answer Date Recorded Do you speak a language other than [facility]? No 11/15/2024 Do you want help with school or training? For example, starting or completing job training or getting a high school diploma, GED or equivalent. No 11/15/2024 [facility] - Physical Activity Answer Date Rec orded [...] your living situation today? I have a [facility] place to live 05/30/2024 Think about [...] Daria Baca RN documented in this encounter Plan of Treatment Upcoming Encounters Date Type Department Care Team (Late st Contact Info) Description 12/06/2024 6:45 EST Treatment [facility] [address] [facility] [address] Carlota Jin MD 1 [facility], [facility] [address] [place] [phone] 12/08/2024 6:45 EST Treatment [facility] [address] [place], [place] [id number] Carlota Jin MD [facility] [address] [place] [phone] 12/11/2024 6:45 EST Treatment [facility] [address] [place], [place] [id number] Carlota Jin MD [address] [facility], [facility] [address] [place] [phone] 12/13/2024 6:45 EST Treatment [facility] [address] [place], [place] [id number] Carlota Jin MD 1 [facility], [facility] [address] [place] [phone] 12/15/2024 6:45 EST Treatment [facility] [address] [place], [place] [id number] Carlota Jin MD [address] [facility], [facility] [address] [place] [phone] 12/18/2024 6:45 EST Treatment [facility] [address] [place], [place] [id number] Carlota Jin MD 1 [facility], [facility] [address] [place] [phone] 12/20/2024 6:45 EST Treatment [facility] [place] [address] [place], [place] [id number] Carlota Jin MD 1 [facility], [facility] [address] [place] [phone] 12/22/2024 6:45 EST Treatment [facility] [place] [address] [place], [place] [id number] Carlota Jin MD 1 [facility], [facility] [address] [place] [phone] 12/25/2024 6:45 EST Treatment [facility] [address] [place], [place] [id number] Carlota Jin MD 1 [facility], [facility] [address] [place] [phone] 12/27/2024 6:45 EST Treatment [facility] [address] [place], [place] [id number] Carlota Jin MD 1 [facility], [facility] [address] [place] [phone] 12/29/2024 6:45 EST Treatment [facility] [place] [address] [place], [place] [id number] Carlota Jin MD 1 [facility], [facility] [address] [place] [phone] 01/01/2025 6:45 EDT Treatment [facility] [place] [address] [place], [place] [id number] Carlota Jin MD [address] [facility], [facility] [address] [place] [phone] 01/03/2025 6:45 EDT Treatment [facility] [address] [place], [place] [address] Carlota Jin MD [address] [facility], [facility] [address] [place] [phone] 01/05/2025 6:45 EDT Treatment [facility] [address] [place], [place] [id number] Carlota Jin MD 1 [facility], [facility] [address] [place] [phone] 01/08/2025 6:45 EDT Treatment [facility] [address] [place], [place] [address] Carlota Jin MD [address] [facility], [facility] [address] [place] [phone] 01/10/2025 6:45 EDT Treatment [facility] [address] [place] [address] Carlota Jin MD [address] [facility], [facility] [address] [place] [phone] 01/12/2025 6:45 EDT Treatment [facility] - [place] [address] [place], [place] [address] Carlota Jin MD [address] [facility], [facility] [address] [place] [phone] 01/15/2025 6:45 EDT Treatment [facility] [place] [address] [place], [place] [id number] Carlota Jin MD 1 [facility], [facility] [address] [place] [phone] 01/17/2025 6:45 EDT Treatment [facility] [place] [address] [place], [place] [id number] Carlota Jin MD 1 [facility], [address] [phone] 01/19/2025 6:45 EDT Treatment [facility] [place] [address] [place], [place] [id number] Carlota Jin MD [address] [place] [address], [address] [phone] 01/22/2025 6:45 EDT Treatment [facility] [place] [address] [place], [place] [id number] Carlota Jin MD [address] [place] [address], [facility] [address] [place] [phone] 01/24/2025 6:45 EDT Treatment [facility] [place] [address] [place], [place] [id number] Carlota Jin MD 1 [facility], [facility] [address] [place] [phone] 01/26/2025 6:45 EDT Treatment [facility] [place] [address] [place], [place] [id number] Carlota Jin MD [address] [facility], [facility] [address] [place] [phone] 01/29/2025 6:45 EDT Treatment [facility] [place] [address] [place], [place] [id number] Carlota Jin MD [address] [facility], [facility] [address] [place] [phone] 01/31/2025 6:45 EDT Treatment [facility] [address] [place], [place] [id number] Carlota Jin MD 1 [facility], [facility] [address] [place] [phone] 02/02/2025 6:45 EDT Treatment [facility] [place] [address] [place], [place] [phone] Carlota Jin MD 1 [facility], [facility] [address] [place] [phone] 02/05/2025 6:45 EDT Treatment [facility] [address] [place], [place] [address] Carlota Jin MD [address] [facility], [facility] [address] [place] [phone] 02/07/2025 6:45 EDT Treatment [facility] [address] [place], [place] [id number] Carlota Jin MD [address] [facility], [facility] [address] [place] [phone] 02/09/2025 6:45 EDT Treatment [facility] [place] [address] [place], [place] [id number] Carlota Jin MD 1 [facility], [facility] [address] [place] [phone] 02/12/2025 6:45 EDT Treatment [facility] [place] [address] [place], [place] [phone] Carlota Jin MD 1 [facility], [facility] [address] [place] [phone] 02/14/2025 6:45 EDT Treatment [facility] [address] [place], [place] [id number] Carlota Jin MD 1 [facility], [address] [phone] 02/16/2025 6:45 EDT Treatment [facility] [address] [place] [address] Carlota Jin MD 1 [facility], [facility] [address] [place] [phone] 02/19/2025 6:45 EDT Treatment [facility] [address] [place], [place] [phone] Carlota Jin MD 1 [facility], [facility] [address] [place] [phone] 02/21/2025 6:45 EDT Treatment [facility] [place] [address] [place] [address] Carlota Jin MD 1 [facility], Level [address] [place] [phone] documented as of this encounter Visit Diagnoses Not on filedocumented in this encounter Care Teams Managed Care Provider Relationship Specialty Start Date End Date Ken Greer MD [address] [facility] [address] PCP - General 07/07/23 Kiel Powers Junior Assistant Manager Nephrology 05/31/24 documented as of this encounter
--- OUTSIDE RECORDS SUMMARY | 2024-12-05 11:53 | XMS_ITS | Encounter Summary ---
Author Organization [facility] Address [address] [place] [address] Care Team Providers Care Nursing Assistant Name Role Phone Ken Greer MD Primary Care Provider [phone] Kiel Powers Unavailable Unavailable Reason for Visit * Episode Based Medications (Routine) - New Request Specialty Diagnoses / Procedures Referred By Nader gardiner Referred To Contact Diagnoses ESRD (end stage renal disease) ([facility]) Carlota Jin MD [address] [place] [address], [facility] [address] [place] [address] Phone: tel: fax: [facility] [address] [place] [address] Phone: tel: fax: Referral ID Status Reason Start Date Expiration Date V isits Requested Visits Authorized [id number] New Request 03/17/2024 1 1 Encounter Details Date Type Department Care Team (Latest Contact Info) Description 11/22/2024 6:45 EST Treatment [facility] [address] [place] [phone] Carlota Jin MD [address] [place] [address], [facility] [address] [place] [address] ESRD (end stage renal disease) ([facility]) (Primary Dx); Secondary hyperparathyroidism ([facility]) Social History Tobacco Use Types Packs/Day Years Used Date Smoking Tobacco: Every Day Cigarettes 1 26.1 Started: 1998 Smokeless Tobacco: Never Alcohol Use Standard Drinks/Week Comments Yes 0 (1 standard drink = 0.6 oz pur e alcohol) Socially [facility] Utilities Answer Date Recorded In the [...] any time in the past 12 m [facility], were you homeless or living in a residential (including now)? No 05/30/2024 [facility] - Inadequate Housing Answer Date Re corded What is your living situation today? I have a [facility] place to live 11/15/[address] you li ve. Do you have problems with any of the following? None of the above 11/15/2024 [facility] - Transportation Answer Date Record ed In the past 12 months, has l ack of reliable transportation kept you from medical appointments, meetings, work or from getting things needed for daily living? No 11/15/2024 [facility] - Personal Safety Answer Date Recor [...] scream or curse at you? Never 11/15/2024 [facility] - Financial Strain Answer Date Cornel rded How hard is it for you to pa y for the very basics like food, housing, medical care, and heating? Would you say it is: Not hard at all 11/15/2024 [facility] - Employment Answer Date Recorded Do you want help finding or keeping work or a job? I do not need or want help 11/15/2024 [facility] - Social Connections Answer Date Re corded If for any reason you need h elp with day-to-day activities such as bathing, preparing meals, shopping, managing finances, etc., do you get the help you need? I get all the help I need 11/15/2024 How often do you feel lonely or isolated from those around you? Never 11/15/2024 [facility] - Education Answer Date Recorded Do you speak a language other than [facility]? No 11/15/2024 Do you want help with school or training? For example, starting or completing job training or getting a high school diploma, GED or equivalent. No 11/15/2024 [facility] - Physical Activity Answer Date Rec [...] Record ed How often does anyone, martin loyns family, hit, punch or physically hurt you? 05/30/2024 How often does anyone, martin lyons family, insult, scream, curse or threaten to hurt you? 05/30/2024 Living Situation Answer Date Recorded What is your living situation today? I have a [facility] place to live 05/30/2024 Think about [...] - Temperature - - Respiratory Rate 16 11/22/2024 0625 EST Oxygen Saturation - - Inhaled Oxygen Concentration - - Weight 80.8 kg (178 lb 2.1 oz) 11/22/[address] Height - - Body Mass [...] Flowsheet Note - Marcela Cox RN - 11/22/2024 1310 EST 11/22/24 1040 Post-Hemodialysis Assessment Total Blood Processed (L) 89.94 Liters On Line Clearance: spKt/V 1.5 spKt/V Dialyzer Clearance Lightly streaked Treatment UFR (ml:kg:hr) 14.05 ml:kg:hr Fluid Removed (L) 4.3 L Post-Dialysis Scale Weight 93.4 kg (205 lb 14.6 oz) Wheelchair Weight 17.2 kg (37 lb 14.7 oz) Prosthesis Weight 0 kg (0 lb) Post-Treatment Weight (kg) 76.2 Treatment Weight Change (kg) 4.3 kg Day Target Weight (kg) 76.7 Post Sitting/Lying BP 107/78 Post Sitting/Lying pulse 88 Temp 36.6 ??C (97.9 ??F) Temp src Temporal Minutes Short -241 Post access assessment AVF/AFG Hemostasis achieved Yes Note 10 minute hold both sites Orientation Alert and Oriented x3 Yes Time Yes Place Yes Person Yes Cooperative Yes Disoriented No Discharge Ambulation Methods Departs via w/c Wrap up items Patient Response to Treatment Tolerated tx well. Removed 4.3L UF goal without difficulty. Comments No issues during tx, no concerns voiced post tx. documented in this encounter Plan of Treatment Upcoming Encounters Date Type Department Care Team (Late st Contact Info) Description 12/06/2024 6:45 EST Treatment [facility] [address] [place], [place] [phone] Carlota Jin MD [address] [phone] 12/08/2024 6:45 EST Treatment [facility] [address] [place], [place] [phone] Carlota Jin MD [address] [phone] 12/11/2024 6:45 EST Treatment [facility] [address] [place], [place] [phone] Carlota Jin MD [address] [phone] 12/13/2024 6:45 EST Treatment [facility] [address] [place], [place] [phone] Carlota Jin MD [address] [place] [phone] 12/15/2024 6:45 EST Treatment [facility] [address] [place], [place] [phone] Carlota Jin MD [address] [place] [phone] 12/18/2024 6:45 EST Treatment [facility] [address] [place], [place] [phone] Carlota Jin MD 1 [facility], [facility] [address] [place] [phone] 12/20/2024 6:45 EST Treatment [facility] [address] [place], [place] [phone] Carlota Jin MD 1 [facility], [facility] [address] [place] [phone] 12/22/2024 6:45 EST Treatment [facility] [address] [place], [place] [phone] Carlota Jin MD 1 [facility], [facility] [address] [place] [phone] 12/25/2024 6:45 EST Treatment [facility] [address] [place], [place] [phone] Carlota Jin MD 1 [facility], [facility] [address] [place] [phone] 12/27/2024 6:45 EST Treatment [facility] [address] [place], [place] [phone] Carlota Jin MD 1 [facility], [facility] [address] [place] [phone] 12/29/2024 6:45 EST Treatment [facility] [address] [place], [place] [address] Carlota Jin MD 1 [facility], [facility] [address] [place] [phone] 01/01/2025 6:45 EDT Treatment [facility] [address] [place], [place] [phone] Carlota Jin MD 1 [facility], [facility] [address] [place] [phone] 01/03/2025 6:45 EDT Treatment [facility] [address] [place], [place] [phone] Carlota Jin MD 1 [facility], [facility] [address] [place] [phone] 01/05/2025 6:45 EDT Treatment [facility] [address] [place], [place] [phone] Carlota Jin MD 1 [facility], [facility] [address] [place] [phone] 01/08/2025 6:45 EDT Treatment [facility] [address] [place], [place] [phone] Carlota Jin MD 1 [facility], [facility] [address] [place] [phone] 01/10/2025 6:45 EDT Treatment [facility] [address] [place], [place] [phone] Carlota Jin MD 1 [facility], [facility] [address] [place] [phone] 01/12/2025 6:45 EDT Treatment [facility] [address] [place], [place] [phone] Carlota Jin MD 1 [facility], [facility] [address] [place] [phone] 01/15/2025 6:45 EDT Treatment [facility] [address] [place], [place] [phone] Carlota Jin MD 1 [facility], [facility] [address] [place] [phone] 01/17/2025 6:45 EDT Treatment [facility] [address] [place], [place] [phone] Carlota Jin MD 1 [facility], [facility] [address] [place] [phone] 01/19/2025 6:45 EDT Treatment [facility] [address] [place], [place] [phone] Carlota Jin MD 1 [facility], [facility] [address] [place] [phone] 01/22/2025 6:45 EDT Treatment [facility] [address] [place], [place] [phone] Carlota Jin MD 1 [facility], [facility] [address] [place] [phone] 01/24/2025 6:45 EDT Treatment [facility] [address] [place], [place] [phone] Carlota Jin MD 1 [facility], [facility] [address] [place] [phone] 01/26/2025 6:45 EDT Treatment [facility] [address] [place], [place] [phone] Carlota Jin MD [address] [place] [address], [facility] [address] [place] [phone] 01/29/2025 6:45 EDT Treatment [facility] [address] [place], [place] [phone] Carlota Jin MD [address] [place] [address], [address] [phone] 01/31/2025 6:45 EDT Treatment [facility] [address] [place], [place] [phone] Carlota Jin MD [address] [place] [address], [facility] [address] [place] [phone] 02/02/2025 6:45 EDT Treatment [facility] [address] [place], [place] [phone] Carlota Jin MD 1 [facility], [facility] [address] [place] [phone] 02/05/2025 6:45 EDT Treatment [facility] [address] [place], [place] [phone] Carlota Jin MD 1 [facility], [facility] [address] [place] [phone] 02/07/2025 6:45 EDT Treatment [facility] [address] [place], [place] [phone] Carlota Jin MD 1 [facility], [facility] [address] [place] [phone] 02/09/2025 6:45 EDT Treatment [facility] [address] [place], [place] [phone] Carlota Jin MD 1 [facility], [facility] [address] [place] [phone] 02/12/2025 6:45 EDT Treatment [facility] [address] [place] [address] Carlota Jin MD 1 [facility], [facility] [address] [place] [phone] 02/14/2025 6:45 EDT Treatment [facility] [address] [place] [address] Carlota Jin MD 1 [facility], [facility] [address] [place] [phone] 02/16/2025 6:45 EDT Treatment [facility] [address] [place], [place] [phone] Carlota Jin MD 1 [facility], [facility] [address] [place] [phone] 02/19/2025 6:45 EDT Treatment [facility] [address] [place], [place] [phone] Carlota Jin MD 1 [facility], [facility] [address] [place] [phone] 02/21/2025 6:45 EDT Treatment [facility] [address] [place], [place] [phone] Carlota Jin MD 1 [facility], [address] [place] [phone] documented as of this encounter Procedures Procedure Name Priority Date/Time Associated Diagnosis Comments COMPLETE BLOOD COUNT Routine 11/22/2024 6:32 EST ESRD (end stage renal disease) ([facility]) HEMODIALYSIS Routine 11/22/2024 6:25 EST ESRD (end stage renal disease) ([facility]) documented in this encounter Results * (ABNORMAL) COMPLETE BLOOD COUNT (11/22/2024 6:32 EST) WBC 9.15 4.00 - 10.40 K/cmm 11/22/2024 23:03 [facility] RBC 3.83(L) 4.36 - 5.78 M/cmm 11/22/2024 23:03 [facility] Hemoglobin 11.5(L) 13.8 - 17.3 g/dL 11/22/2024 23:03 [facility] HCT 34.6(L) 39.5 - 50.2 % 11/22/2024 23:03 [facility] MCV 90 81 - 95 fL 11/22/2024 23:03 [facility] MCH 30.0 27.6 - 33.0 pg 11/22/2024 23:03 [facility] MCHC 33.2 32.8 - 36.4 g/dL 11/22/2024 23:03 [facility] RDW-CV 15.9(H) <14.2 % 11/22/2024 23:03 [facility] RDW-SD 52.7(H) <46.0 fl 11/22/2024 23:03 [facility] PLT 254 141 - 377 K/cmm 11/22/2024 23:03 [facility] MPV 11.3 9.5 - 12.7 fL 11/22/2024 23:03 [facility] Blood VENOUS BLOOD / Unknown Venipuncture / Unknown 11/22/2024 6:32 EST 11/22/2024 6:32 EST us Carlota Jin MD HEMATOLOGY & PF4 ORDERABL ES Final Result Performing Organization Address City/State/[facility] Co de Phone Number [facility] [address] [place] [address] documented in this encounter Visit Diagnoses Diagnosis ESRD (end stage renal disease) ([facility])- Primary End stage renal disease Secondary hyperparathyroidism ([facility]) Secondary hyperparathyroidism (of renal origin) documented in this encounter Administered Medications Inactive Administered Medications - up to 3 most recent administrations Medication Order MAR Action Action Date Dose Rate Site acetaminophen (TYLENOL) tablet 650 mg 650 mg, oral, EVERY 4 HOURS PRN, Starting on Wed11/22/24 at 0630, Until Wed11/22/24 at 1510, Pain, Routine, DialysisIndications:ESRD (end stage renal disease) ([facility]) Given 11/22/2024 6:51 EST 650 mg amino acids-protein hydrolysate (LiquaCel) 16 gram-100 kcal/30 mL liquid in packet 30 mL 30 mL, oral, ONCE IN DIALYSIS, 1 dose, On Wed11/22/24 at 0645, RoutineIndications:ESRD (end stage renal disease) ([facility]) Given 11/22/2024 6:51 EST 30 mL calcium carbonate (TUMS) tablet 500 mg (200 mg elemental calcium) 2 Tablet 2 Tablet, oral, ONCE IN DIALYSIS, 1 dose, On Wed11/22/24 at 0645, Routine, DialysisIndications:ESRD (end stage renal disease) ([facility]),Secondary hyperparathyroidism ([facility]) Given 11/22/2024 6:51 EST 2 Tablets epoetin ken (EPOGEN) 20,000 unit/2 mL injection 5,000 Units 5,000 Units, intravenous, ONCE IN DIALYSIS, 1 dose, On Wed11/22/24 at 0645, Routine, DialysisIndications:ESRD (end stage renal disease) ([facility]) Given 11/22/2024 7:05 EST 5,000 Units heparin injection 3,000 Units 3,000 Units, intravenous, ONCE IN DIALYSIS, 1 dose, On Wed11/22/24 at 0645, Routine, Dialysis, Now x1 bolus 1500 units to be given at the beginning of dialysis 500 units/hour to be given over the course of dialysis (3000 units total). Stop 1 hour prior to end of treatment. To be administered per Policy [id number].Indications:ESRD (end stage renal disease) ([facility]) Given 11/22/2024 6:51 EST 3,000 Units documented in this encounter Orders Dialysis Count Last Ordered Date First Orde red Date HEMODIALYSIS 1 11/22/2024 documented in this encounter Care Teams Nursing Assistant Relationship Specialty Start Date End Date Ken Greer MD [address] [place] [address] PCP - General 07/07/23 Kiel Powers Industrial Energy Engineer Nephrology 05/31/24 documented as of this encounter
--- OUTSIDE RECORDS SUMMARY | 2024-12-05 11:53 | XMS_ITS | Encounter Summary ---
Author Organization [facility] Address [address] [place] [address] Care Team Providers Care Head Mixer Name Role Phone Ken Greer MD Primary Care Provider [phone] Kiel Powers Unavailable Unavailable Encounter Details Date Type Department Care Team (Late st Contact Info) Description 12/04/2024 Plan of Care Documentation [facility] [address] [place], [place] [id number] Social History Tobacco Use Types Packs/Day Years Used Date Smoking Tobacco: Every Day Cigarettes 1 26.1 Started: 1998 Smokeless Tobacco: Never Alcohol Use Standard Drinks/Week Comments Yes 0 (1 standard drink = 0.6 oz pur e alcohol) Socially [facility] Utilities Answer Date Recorded In the past [...] health care facility (including now)? No 05/30/2024 [facility] - Inadequate Housing Answer Date Re corded What is your living situation today? I have a [facility] place to live 11/15/[address] you li ve. Do you have problems with any of the following? None of the above 11/15/2024 [facility] - Transportation Answer Date Record ed In the past 12 months, has l ack of reliable transportation kept you from medical appointments, meetings, work or from getting things needed for daily living? No 11/15/2024 [facility] - Personal Safety Answer Date Recor ded [...] scream or curse at you? Never 11/15/2024 [facility] - Financial Strain Answer Date Cornel rded How hard is it for you to pa y for the very basics like food, housing, medical care, and heating? Would you say it is: Not hard at all 11/15/2024 [facility] - Employment Answer Date Recorded Do you want help finding or keeping work or a job? I do not need or want help 11/15/2024 [facility] - Social Connections Answer Date Re corded If for any reason you need h elp with day-to-day activities such as bathing, preparing meals, shopping, managing finances, etc., do you get the help you need? I get all the help I need 11/15/2024 How often do you feel lonely or isolated from those around you? Never 11/15/2024 [facility] - Education Answer Date Recorded Do you speak a language other than [place] [facility]? No 11/15/2024 Do you want help with school or training? For example, starting or completing job training or getting a high school diploma, GED or equivalent. No 11/15/2024 [facility] - Physical Activity Answer Date Rec orded [...] your living situation today? I have a [facility] place to live 05/30/2024 Think about the [...] Recorded In the past 12 months has [employer], gas, oil, or water company threatened [...] 05/30/2024 18:25 EDT Daria Fonseca RN * Because of a physical, mental, [...] Answer Entry Date Author No 05/30/2024 18:25 EDDaria Whitfield RN documented in this encounter Plan of Treatment Upcoming Encounters Date Type Department Care Team (Late st Contact Info) Description 12/06/2024 6:45 EST Treatment [facility] [address] [place] [address] Carlota Jin MD 1 [facility], Level [address] [place] [address] 12/08/2024 6:45 EST Treatment [facility] [place] [address] [place], [place] [id number] Carlota Jin MD 1 [facility], [facility] 2 [place] [phone] 12/11/2024 6:45 EST Treatment [facility] [address] [place], [place] [id number] Carlota Jin MD 1 [facility], [facility] [address] [place] [phone] 12/13/2024 6:45 EST Treatment [facility] [address] [place] [address] Carlota Jin MD [address] [place] [address], [facility] [address] [place] [phone] 12/15/2024 6:45 EST Treatment [facility] [address] [place], [place] [id number] Carlota Jin MD 1 [facility], [facility] [address] [place] [phone] 12/18/2024 6:45 EST Treatment [facility] [place] [address] [place], [place] [id number] Carlota Jin MD 1 [facility], [facility] [address] [place] [phone] 12/20/2024 6:45 EST Treatment [facility] [place] [address] [place], [place] [id number] Carlota Jin MD 1 [facility], [facility] 2 [place] [phone] 12/22/2024 6:45 EST Treatment [facility] [place] [address] [place], [place] [id number] Carlota Jin MD 1 [facility], [facility] [address] [place] [phone] 12/25/2024 6:45 EST Treatment [facility] [place] [address] [place], [place] [id number] Carlota Jin MD 1 [facility], [facility] [address] [place] [phone] 12/27/2024 6:45 EST Treatment [facility] [place] [address] [place], [place] [id number] Carlota Jin MD 1 [facility], [facility] [address] [place] [phone] 12/29/2024 6:45 EST Treatment [facility] [address] [place], [place] [phone] Carlota Jin MD 1 [facility], [facility] [address] [place] [phone] 01/01/2025 6:45 EDT Treatment [facility] [place] [address] [place], [place] [id number] Carlota Jin MD 1 [facility], [facility] 2 [place] [phone] 01/03/2025 6:45 EDT Treatment [facility] [place] [address] [place], [place] [id number] Carlota Jin MD 1 [facility], [facility] [address] [place] [phone] 01/05/2025 6:45 EDT Treatment [facility] [place] [address] [place], [place] [id number] Carlota Jin MD 1 [facility], [facility] [address] [place] [phone] 01/08/2025 6:45 EDT Treatment [facility] [place] [address] [place], [place] [id number] Carlota Jin MD 1 [facility], [facility] [address] [place] [phone] 01/10/2025 6:45 EDT Treatment [facility] [place] [address] [place], [place] [id number] Carlota Jin MD 1 [facility], [facility] [address] [place] [phone] 01/12/2025 6:45 EDT Treatment [facility] [place] [address] [place], [place] [id number] Carlota Jin MD 1 [facility], [facility] [address] [place] [phone] 01/15/2025 6:45 EDT Treatment [facility] [place] [address] [place], [place] [id number] Carlota Jin MD 1 [facility], [facility] [address] [place] [phone] 01/17/2025 6:45 EDT Treatment [facility] [place] [address] [place] [address] Carlota Jin MD 1 [facility], [facility] [address] [place] [phone] 01/19/2025 6:45 EDT Treatment [facility] [place] [address] [place], [place] [id number] Carlota Jin MD 1 [facility], [facility] [address] [place] [phone] 01/22/2025 6:45 EDT Treatment [facility] [place] [address] [place], [place] [id number] Carlota Jin MD 1 [facility], [address] [phone] 01/24/2025 6:45 EDT Treatment [facility] [place] [address] [place], [place] [id number] Carlota Jin MD 1 [facility], [facility] [address] [place] [phone] 01/26/2025 6:45 EDT Treatment [facility] [place] [address] [place], [place] [phone] Carlota Jin MD 1 [facility], [facility] [address] [place] [phone] 01/29/2025 6:45 EDT Treatment [facility] [place] [address] [place], [place] [phone] Carlota Jin MD 1 [facility], [facility] [address] [place] [phone] 01/31/2025 6:45 EDT Treatment [facility] [place] [address] [place], [place] [id number] Carlota Jin MD 1 [facility], [facility] [address] [place] [phone] 02/02/2025 6:45 EDT Treatment [facility] [place] [address] [place], [place] [phone] Carlota Jin MD [address] [place] [address], [address] [phone] 02/05/2025 6:45 EDT Treatment [facility] [place] [address] [place], [place] [phone] Carlota Jin MD [address] [place] [address], [facility] [address] [place] [phone] 02/07/2025 6:45 EDT Treatment [facility] [place] [address] [place], [place] [phone] Carlota Jin MD 1 [facility], [facility] [address] [place] [phone] 02/09/2025 6:45 EDT Treatment [facility] [place] [address] [place], [place] [address] Carlota Jin MD 1 [facility], [facility] [address] [place] [phone] 02/12/2025 6:45 EDT Treatment [facility] [place] [address] [place], [place] [phone] Carlota Jin MD 1 [facility], [facility] [address] [place] [phone] 02/14/2025 6:45 EDT Treatment [facility] [place] [address] [place], [place] [phone] Carlota Jin MD 1 [facility], [facility] [address] [place] [phone] 02/16/2025 6:45 EDT Treatment [facility] [place] [address] [place], [place] [id number] Carlota Jin MD 1 [facility], [facility] [address] [place] [phone] 02/19/2025 6:45 EDT Treatment [facility] [place] [address] [place], [place] [phone] Carlota Jin MD 1 [facility], [facility] [address] [place] [phone] 02/21/2025 6:45 EDT Treatment [facility] [place] [address] [place], [place] [id number] Carlota Jin MD 1 [facility], [facility] [address] [place] [phone] documented as of this encounter Visit Diagnoses Not on filedocumented in this encounter Care Teams Head Mixer Relationship Specialty Start Date End Date Ken Greer MD [address] [place] [address] PCP - General 07/07/23 Kiel Powers Sulfonator Operator Nephrology 05/31/24 documented as of this encounter
--- OUTSIDE RECORDS SUMMARY | 2024-12-05 11:53 | XMS_ITS | Encounter Summary ---
Author Organization [facility] Address [address] [place] [address] Care Team Providers Care Gaming Worker Name Role Phone Ken Greer MD Primary Care Provider [phone] Kiel Powers Unavailable Unavailable Reason for Visit * Episode Based Medications (Routine) - New Request Specialty Diagnoses / Procedures Referred By Nader gardiner Referred To Contact Diagnoses ESRD (end stage renal disease) ([facility]) Carlota Jin MD [address] [place] [address], [facility] [address] [place] [address] Phone: tel: fax: [facility] [place] [address] [place] [address] Phone: tel: fax: Referral ID Status Reason Start Date Expiration Date V isits Requested Visits Authorized [id number] New Request 03/17/2024 1 1 Encounter Details Date Type Department Care Team (Latest Contact Info) Description 11/17/2024 6:45 EST Treatment [facility] [address] [place] [id number] Carlota Jin MD [address] [place] [address], [facility] [address] [place] [phone] ESRD (end stage renal disease) ([facility]) (Primary Dx); Secondary hyperparathyroidism ([facility]) Social History Tobacco Use Types Packs/Day Years Used Date Smoking Tobacco: Every Day Cigarettes 1 26.1 Started: 1998 Smokeless Tobacco: Never Alcohol Use Standard Drinks/Week Comments Yes 0 (1 standard drink = 0.6 oz pur e alcohol) Socially [facility] Utilities Answer Date Recorded In the past [...] any time in the past 12 m [facility], were you homeless or living in a alf (including now)? No 05/30/2024 [facility] - Inadequate Housing Answer Date Re corded What is your living situation today? I have a [facility] place to live 11/15/[address] you li ve. Do you have problems with any of the following? None of the above 11/15/2024 [facility] - Transportation Answer Date Record ed In the past 12 months, has l ack of reliable transportation kept you from medical appointments, meetings, work or from getting things needed for daily living? No 11/15/2024 [facility] - Personal Safety Answer Date Recor ded [...] Never 11/15/2024 [facility] - Financial Strain Answer Date Cornel rded How hard is it for you to pa y for the very basics like food, housing, medical care, and heating? Would you say it is: Not hard at all 11/15/2024 [facility] - Employment Answer Date Recorded Do you want help finding or keeping work or a job? I do not need or want help 11/15/2024 [facility] - Social Connections Answer Date Re corded If for any reason you need h elp with day-to-day activities such as bathing, preparing meals, shopping, managing finances, etc., do you get the help you need? I get all the help I need 11/15/2024 How often do you feel lonely or isolated from those around you? Never 11/15/2024 [facility] - Education Answer Date Recorded Do you speak a language other than [place] at [facility]? No 11/15/2024 Do you want help with school or training? For example, starting or completing job training or getting a high school diploma, GED or equivalent. No 11/15/2024 [facility] - Physical Activity Answer Date Rec orded [...] - Temperature - - Respiratory Rate 16 11/17/2024 0623 EST Oxygen Saturation - - Inhaled Oxygen Concentration - - Weight 80.5 kg (177 lb 7.5 oz) 11/17/[address] Height - - Body Mass Index 25.46 07/20/2024 1359 EDT documented in this encounter [...] Flowsheet Note - Marcela Cox RN - 11/17/2024 1251 EST 11/17/24 1049 Post-Hemodialysis Assessment Total Blood Processed (L) 90.26 Liters On Line Clearance: spKt/V 1.48 spKt/V Dialyzer Clearance Lightly streaked Treatment UFR (ml:kg:hr) 12.68 ml:kg:hr Fluid Removed (L) 4.3 L Post-Dialysis Scale Weight 93.6 kg (206 lb 5.6 oz) Wheelchair Weight 17.2 kg (37 lb 14.7 oz) Prosthesis Weight 0 kg (0 lb) Post-Treatment Weight (kg) 76.4 Treatment Weight Change (kg) 4.1 kg Day Target Weight (kg) 76.7 Post Sitting/Lying BP 169/68 Post Sitting/Lying pulse 61 Temp 36.8 ??C (98.2 ??F) Temp src Temporal Minutes Short -254 Post access assessment AVF/AFG Hemostasis achieved Yes [...] Contact Info) Description 12/06/2024 6:45 EST Treatment [facility] [place] [address] [place], [place] [phone] Carlota Jin MD [address] [phone] 12/08/2024 6:45 EST Treatment [facility] [place] [address] [place], [place] [phone] Carlota Jin MD [address] [phone] 12/11/2024 6:45 EST Treatment [facility] [place] [address] [place], [place] [id number] Carlota Jin MD [address] [phone] 12/13/2024 6:45 EST Treatment [facility] [place] [address] [place], [place] [phone] Carlota Jin MD [address] [place] [phone] 12/15/2024 6:45 EST Treatment [facility] [place] [address] [place], [place] [phone] Carlota Jin MD [address] [place] [phone] 12/18/2024 6:45 EST Treatment [facility] [place] [address] [place], [place] [phone] Carlota Jin MD 1 [facility], [facility] [address] [place] [phone] 12/20/2024 6:45 EST Treatment [facility] [place] [address] [place], [place] [phone] Carlota Jin MD 1 [facility], [facility] [address] [place] [phone] 12/22/2024 6:45 EST Treatment [facility] [place] [address] [place], [place] [phone] Carlota Jin MD 1 [facility], [facility] [address] [place] [phone] 12/25/2024 6:45 EST Treatment [facility] [address] [place], [place] [phone] Carolta Jin MD 1 [facility], [facility] [address] [place] [phone] 12/27/2024 6:45 EST Treatment [facility] [address] [place], [place] [phone] Carlota Jin MD 1 [facility], [facility] [address] [place] [phone] 12/29/2024 6:45 EST Treatment [facility] [place] [address] [place], [place] [address] Carlota Jin MD 1 [facility], [facility] [address] [place] [phone] 01/01/2025 6:45 EDT Treatment [facility] [place] [address] [place], [place] [phone] Carlota Jin MD 1 [facility], [facility] [address] [place] [phone] 01/03/2025 6:45 EDT Treatment [facility] [place] [address] [place], [place] [phone] Carlota Jin MD 1 [facility], [facility] [address] [place] [phone] 01/05/2025 6:45 EDT Treatment [facility] [place] [address] [place], [place] [phone] Carlota Jin MD 1 [facility], [facility] [address] [place] [phone] 01/08/2025 6:45 EDT Treatment [facility] [place] [address] [place], [place] [phone] Carlota Jin MD 1 [facility], [facility] [address] [place] [phone] 01/10/2025 6:45 EDT Treatment [facility] [place] [address] [place], [place] [phone] Carlota Jin MD 1 [facility], [facility] [address] [place] [phone] 01/12/2025 6:45 EDT Treatment [facility] [place] [address] [place], [place] [address] Carlota Jin MD 1 [facility], [facility] [address] [place] [phone] 01/15/2025 6:45 EDT Treatment [facility] [place] [address] [place], [place] [phone] Carlota Jin MD 1 [facility], [facility] [address] [place] [phone] 01/17/2025 6:45 EDT Treatment [facility] [place] [address] [place], [place] [phone] Carlota Jin MD 1 [facility], [facility] [address] [place] [phone] 01/19/2025 6:45 EDT Treatment [facility] [place] [address] [place], [place] [phone] Carlota Jin MD 1 [facility], [facility] [address] [place] [phone] 01/22/2025 6:45 EDT Treatment [facility] [place] [address] [place], [place] [address] Carlota Jin MD 1 [facility], [facility] [address] [place] [phone] 01/24/2025 6:45 EDT Treatment [facility] [place] [address] [place], [place] [phone] Carlota Jin MD 1 [facility], [facility] [address] [place] [phone] 01/26/2025 6:45 EDT Treatment [facility] [place] [address] [place], [place] [phone] Carlota Jin MD [address] [place] [address], [facility] [address] [place] [phone] 01/29/2025 6:45 EDT Treatment [facility] [place] [address] [place], [place] [phone] Carlota Jin MD [address] [place] [address], [address] [phone] 01/31/2025 6:45 EDT Treatment [facility] [place] [address] [place], [place] [phone] Carlota Jin MD [address] [place] [address], [facility] [address] [place] [phone] 02/02/2025 6:45 EDT Treatment [facility] [place] [address] [place], [place] [phone] Carlota Jin MD 1 [facility], [facility] [address] [place] [phone] 02/05/2025 6:45 EDT Treatment [facility] [place] [address] [place], [place] [phone] Carlota Jin MD 1 [facility], [facility] [address] [place] [phone] 02/07/2025 6:45 EDT Treatment [facility] [place] [address] [place], [place] [phone] Carlota Jin MD 1 [facility], [facility] [address] [place] [phone] 02/09/2025 6:45 EDT Treatment [facility] [place] [address] [place], [place] [phone] Carlota Jin MD 1 [facility], [facility] [address] [place] [phone] 02/12/2025 6:45 EDT Treatment [facility] [place] [address] [place] [address] Carlota Jin MD 1 [facility], [facility] [address] [place] [phone] 02/14/2025 6:45 EDT Treatment [facility] [place] [address] [place] [address] Carlota Jin MD 1 [facility], [facility] [address] [place] [phone] 02/16/2025 6:45 EDT Treatment [facility] [place] [address] [place], [place] [phone] Carlota Jin MD 1 [facility], [facility] [address] [place] [phone] 02/19/2025 6:45 EDT Treatment [facility] [address] [place], [place] [phone] Carlota Jin MD 1 [facility], [facility] [address] [place] [phone] 02/21/2025 6:45 EDT Treatment [facility] [address] [place], [place] [phone] Carlota Jin MD 1 [facility], [facility] [address] [place] [phone] documented as of this encounter Procedures Procedure Name Priority Date/Time Associated Diagnosis Comments HEMODIALYSIS Routine 11/17/2024 6:23 EST ESRD (end stage renal disease) ([facility]) documented in this encounter Visit Diagnoses Diagnosis ESRD (end stage renal disease) ([facility])- Primary End stage renal disease Secondary hyperparathyroidism ([facility]) Secondary hyperparathyroidism (of renal origin) documented in this encounter Administered Medications Inactive Administered Medications - up to 3 most recent administrations Medication Order MAR Action Action Date Dose Rate Site amino acids-protein hydrolysate (LiquaCel) 16 gram-100 kcal/30 mL liquid in packet 30 mL 30 mL, oral, ONCE IN DIALYSIS, 1 dose, On Wed11/17/24 at 0645, RoutineIndications:ESRD (end stage renal disease) ([facility]) Given 11/17/2024 6:30 EST 30 mL calcium carbonate (TUMS) tablet 500 mg (200 mg elemental calcium) 2 Tablet 2 Tablet, oral, ONCE IN DIALYSIS, 1 dose, On Wed11/17/24 at 0645, Routine, DialysisIndications:ESRD (end stage renal disease) ([facility]),Secondary hyperparathyroidism ([facility]) Given 11/17/2024 6:30 EST 2 Tablets epoetin ken (EPOGEN) 20,000 unit/2 mL injection 5,000 Units 5,000 Units, intravenous, ONCE IN DIALYSIS, 1 dose, On Wed11/17/24 at 0645, Routine, DialysisIndications:ESRD (end stage renal disease) ([facility]) Given 11/17/2024 6:47 EST 5,000 Units heparin injection 3,000 Units 3,000 Units, intravenous, ONCE IN DIALYSIS, 1 dose, On Wed11/17/24 at 0645, Routine, Dialysis, Now x1 bolus 1500 units to be given at the beginning of dialysis 500 units/hour to be given over the course of dialysis (3000 units total). Stop 1 hour prior to end of treatment. To be administered per Policy [id number].Indications:ESRD (end stage renal disease) ([facility]) Given 11/17/2024 6:45 EST 3,000 Units documented in this encounter Orders Dialysis Count Last Ordered Date First Orde red Date HEMODIALYSIS 1 11/17/2024 documented in this encounter Care Teams Gaming Worker Relationship Specialty Start Date End Date Ken Greer MD [address] [place] [address] PCP - General 07/07/23 Kiel Powers [facility] 05/31/24 documented as of this encounter
--- OUTSIDE RECORDS SUMMARY | 2024-12-05 11:53 | XMS_ITS | Encounter Summary ---
Author Organization [facility] Address [address] [place] [address] Care Team Providers Care Brush Sander Name Role Phone Ken Greer MD Primary Care Provider [phone] Kiel Powers Unavailable Unavailable Reason for Visit * Episode Based Medications (Routine) - New Request Specialty Diagnoses / Procedures Referred By Nader gardiner Referred To Contact Diagnoses ESRD (end stage renal disease) ([facility]) Carlota Jin MD [address] [place] [address], [facility] [address] [place] [address] Phone: tel: fax: [facility] [address] [place] [address] Phone: tel: fax: Referral ID Status Reason Start Date Expiration Date V isits Requested Visits Authorized [id number] New Request 03/17/2024 1 1 Encounter Details Date Type Department Care Team (Latest Contact Info) Description 11/24/2024 6:45 EST Treatment [facility] [address] [place] [id number] Carlota Jin MD [address] [place] [address], [facility] [address] [place] [phone] ESRD (end stage renal disease) ([facility]) (Primary Dx); Secondary hyperparathyroidism ([facility]) Social History Tobacco Use Types Packs/Day Years Used Date Smoking Tobacco: Every Day Cigarettes 1 26.1 Started: 1998 Smokeless Tobacco: Never Alcohol Use Standard Drinks/Week Comments Yes 0 (1 standard drink = 0.6 oz pur e alcohol) Socially [facility] Utilities Answer Date Recorded In the [...] any time in the past [address] [facility], were you homeless or living in a [facility] (including now)? No 05/30/2024 [facility] - Inadequate Housing Answer Date Re corded What is your living situation today? I have a [facility] place to live 11/15/[address] you li ve. Do you have problems with any of the following? None of the above 11/15/2024 [facility] - Transportation Answer Date Record ed In the past 12 months, has l ack of reliable transportation kept you from medical appointments, meetings, work or from getting things needed for daily living? No 11/15/2024 [facility] - Personal Safety Answer Date Recor [...] scream or curse at you? Never 11/15/2024 [facility] - Financial Strain Answer Date Cornel rded How hard is it for you to pa y for the very basics like food, housing, medical care, and heating? Would you say it is: Not hard at all 11/15/2024 [facility] - Employment Answer Date Recorded Do you want help finding or keeping work or a job? I do not need or want help 11/15/2024 [facility] - Social Connections Answer Date Re corded If for any reason you need h elp with day-to-day activities such as bathing, preparing meals, shopping, managing finances, etc., do you get the help you need? I get all the help I need 11/15/2024 How often do you feel lonely or isolated from those around you? Never 11/15/2024 [facility] - Education Answer Date Recorded Do you speak a language other than [place] at [facility]? No 11/15/2024 Do you want help with school or training? For example, starting or completing job training or getting a high school diploma, GED or equivalent. No 11/15/2024 [facility] - Physical Activity Answer Date Rec [...] your living situation today? I have a [facility] place to live 05/30/2024 Think about the [...] the past 12 months has th e [employer] gas, oil, or water company threatened to [...] - Temperature - - Respiratory Rate 16 11/24/2024 0624 EST Oxygen Saturation - - Inhaled Oxygen Concentration - - Weight 78.8 kg (173 lb 11.6 oz) 11/24/2024 0621 EST Height - - Body Mass Index 24.93 07/20/2024 1359 EDT documented in this encounter [...] Flowsheet Note - Marcela Cox RN - 11/24/2024 1108 EST 11/24/24 1037 Post-Hemodialysis Assessment Total Blood Processed (L) 90.31 Liters On Line Clearance: spKt/V 1.48 spKt/V Dialyzer Clearance Lightly streaked Treatment UFR (ml:kg:hr) 12.27 ml:kg:hr Critline refill Not done Fluid Removed (L) 3.79 L Post-Dialysis Scale Weight 80.3 kg (177 lb 0.5 oz) Wheelchair Weight 0 kg (0 lb) Prosthesis Weight 5.2 kg (11 lb 7.4 oz) Post-Treatment Weight (kg) 75.1 Treatment Weight Change (kg) 3.7 kg Day Target Weight (kg) 75.5 Post Sitting/Lying BP 192/61 Post Sitting/Lying pulse 63 Post Standing BP 138/50 Post Standing Pulse 63 Temp 36.7 ??C (98.1 ??F) Temp src Temporal Minutes Short -241 Post access assessment Bruit present: Yes Thrill Present AVF/AFG Hemostasis achieved Yes Note Patient held for 10mins with blue clamps without any issues Orientation Alert and Oriented x3 Yes Time Yes Place Yes Person Yes Cooperative Yes Disoriented No Discharge Ambulation Methods Ambulatory with assistive device Ambulation device Walker Wrap up items Patient Response to Treatment Tolerated tx well. Removed 3.8L UF goal without difficulty. Comments No issues during tx, no concerns voiced post tx. documented in this encounter Plan of Treatment Upcoming Encounters Date Type Department Care Team (Late st Contact Info) Description 12/06/2024 6:45 EST Treatment [facility] [address] [place], [place] [id number] Carlota Jin MD [address] [place] [phone] 12/08/2024 6:45 EST Treatment [facility] [address] [place], [place] [id number] Carlota Jin MD [address] [place] [phone] 12/11/2024 6:45 EST Treatment [facility] [address] [place], [place] [id number] Carlota Jin MD [address] [place] [phone] 12/13/2024 6:45 EST Treatment [facility] [address] [place], [place] [id number] Carlota Jin MD [address] [place] [phone] 12/15/2024 6:45 EST Treatment [facility] [address] [place], [place] [id number] Carlota Jin MD 1 [facility], [facility] [address] [place] [phone] 12/18/2024 6:45 EST Treatment [facility] [place] [address] [place] [address] Carlota Jin MD 1 [facility], [facility] [address] [place] [phone] 12/20/2024 6:45 EST Treatment [facility] [address] [place], [place] [id number] Carlota Jin MD 1 [facility], [facility] [address] [place] [phone] 12/22/2024 6:45 EST Treatment [facility] [place] [address] [place], [place] [id number] Carlota Jin MD 1 [facility], [address] [phone] 12/25/2024 6:45 EST Treatment [facility] [address] [place], [place] [id number] Carlota Jin MD 1 [facility], [facility] [address] [place] [phone] 12/27/2024 6:45 EST Treatment [facility] [address] [place], [place] [id number] Carlota Jin MD 1 [facility], [facility] [address] [place] [phone] 12/29/2024 6:45 EST Treatment [facility] [address] [place], [place] [id number] Carlota Jin MD 1 [facility], [facility] [address] [place] [phone] 01/01/2025 6:45 EDT Treatment [facility] [address] [place], [place] [id number] Carlota Jin MD 1 [facility], [facility] [address] [place] [phone] 01/03/2025 6:45 EDT Treatment [facility] [address] [place], [place] [id number] Carlota Jin MD [address] [place] [address], [facility] [address] [place] [phone] 01/05/2025 6:45 EDT Treatment [facility] [address] [place], [place] [id number] Carlota Jin MD 1 [facility], [facility] [address] [place] [phone] 01/08/2025 6:45 EDT Treatment [facility] [address] [place], [place] [id number] Carlota Jin MD 1 [facility], [facility] [address] [place] [phone] 01/10/2025 6:45 EDT Treatment [facility] [address] [place], [place] [id number] Carlota Jin MD 1 [facility], [facility] [address] [place] [phone] 01/12/2025 6:45 EDT Treatment [facility] [place] [address] [place], [place] [id number] Carlota Jin MD 1 [facility], [address] [phone] 01/15/2025 6:45 EDT Treatment [facility] [address] [place], [place] [id number] Carlota Jin MD 1 [facility], [address] [phone] 01/17/2025 6:45 EDT Treatment [facility] [address] [place], [place] [id number] Carlota Jin MD [address] [phone] 01/19/2025 6:45 EDT Treatment [facility] [address] [place], [place] [id number] Carlota Jin MD [address] [phone] 01/22/2025 6:45 EDT Treatment [facility] [address] [place], [place] [phone] Carlota Jin MD 1 [facility], [facility] [address] [place] [phone] 01/24/2025 6:45 EDT Treatment [facility] [address] [place], [place] [id number] Carlota Jin MD 1 [facility], [facility] [address] [place] [phone] 01/26/2025 6:45 EDT Treatment [facility] [address] [place], [place] [id number] Carlota Jin MD 1 [facility], [facility] [address] [place] [phone] 01/29/2025 6:45 EDT Treatment [facility] [address] [place], [place] [id number] Carlota Jin MD 1 [facility], [facility] [address] [place] [phone] 01/31/2025 6:45 EDT Treatment [facility] [address] [place] [address] Carlota Jin MD 1 [facility], [facility] [address] [place] [phone] 02/02/2025 6:45 EDT Treatment [facility] [address] [place], [place] [id number] Carlota Jin MD 1 [facility], [facility] [address] [place] [phone] 02/05/2025 6:45 EDT Treatment [facility] [address] [place], [place] [id number] Carlota Jin MD 1 [facility], [facility] [address] [place] [phone] 02/07/2025 6:45 EDT Treatment [facility] [place] [address] [place], [place] [phone] Carlota Jin MD [address] [place] [address], [address] [phone] 02/09/2025 6:45 EDT Treatment [facility] [address] [place], [place] [id number] Carlota Jin MD [address] [place] [address], [address] [phone] 02/12/2025 6:45 EDT Treatment [facility] [place] [address] [place], [place] [id number] Carlota Jin MD [address] [place] [address], [facility] [address] [place] [phone] 02/14/2025 6:45 EDT Treatment [facility] [place] [address] [place], [place] [id number] Carlota Jin MD [address] [place] [address], [facility] [address] [place] [phone] 02/16/2025 6:45 EDT Treatment [facility] [place] [address] [place], [place] [phone] Carlota Jin MD 1 [facility], Level [address] [place] [phone] 02/19/2025 6:45 EDT Treatment [facility] [address] [place] [phone] Carlota Jin MD 1 [facility], [facility] [address] [place] [phone] 02/21/2025 6:45 EDT Treatment [facility] [address] [place] [address] Carlota Jin MD 1 [facility], [facility] [address] [place] [phone] documented as of this encounter Procedures Procedure Name Priority Date/Time Associated Diagnosis Comments HEMODIALYSIS Routine 11/24/2024 6:25 EST ESRD (end stage renal disease) ([facility]) documented in this encounter Visit Diagnoses Diagnosis ESRD (end stage renal disease) ([facility])- Primary End stage renal disease Secondary hyperparathyroidism ([facility]) Secondary hyperparathyroidism (of renal origin) documented in this encounter Administered Medications Inactive Administered Medications - up to 3 most recent administrations Medication Order MAR Action Action Date Dose Rate Site amino acids-protein hydrolysate (LiquaCel) 16 gram-100 kcal/30 mL liquid in packet 30 mL 30 mL, oral, ONCE IN DIALYSIS, 1 dose, On Wed11/24/24 at 0645, RoutineIndications:ESRD (end stage renal disease) ([facility]) Given 11/24/2024 6:30 EST 30 mL calcium carbonate (TUMS) tablet 500 mg (200 mg elemental calcium) 2 Tablet 2 Tablet, oral, ONCE IN DIALYSIS, 1 dose, On Wed11/24/24 at 0645, Routine, DialysisIndications:ESRD (end stage renal disease) ([facility]),Secondary hyperparathyroidism ([facility]) Given 11/24/2024 6:30 EST 2 Tablets epoetin ken (EPOGEN) 20,000 unit/2 mL injection 5,000 Units 5,000 Units, intravenous, ONCE IN DIALYSIS, 1 dose, On Wed11/24/24 at 0645, Routine, DialysisIndications:ESRD (end stage renal disease) ([facility]) Given 11/24/2024 6:40 EST 5,000 Units heparin injection 3,000 Units 3,000 Units, intravenous, ONCE IN DIALYSIS, 1 dose, On Wed11/24/24 at 0645, Routine, Dialysis, Now x1 bolus 1500 units to be given at the beginning of dialysis 500 units/hour to be given over the course of dialysis (3000 units total). Stop 1 hour prior to end of treatment. To be administered per Policy [id number].Indications:ESRD (end stage renal disease) ([facility]) Given 11/24/2024 6:40 EST 3,000 Units documented in this encounter Orders Dialysis Count Last Ordered Date First Orde red Date HEMODIALYSIS 1 11/24/2024 documented in this encounter Care Teams Brush Sander Relationship Specialty Start Date End Date Ken Greer MD [facility] [place] [address] PCP - General 07/07/23 Kiel Powers [employer] Executive Nephrology 05/31/24 documented as of this encounter
--- OUTSIDE RECORDS SUMMARY | 2024-12-05 11:53 | XMS_ITS | Encounter Summary ---
Author Organization [facility] Address [address] [place] [address] Care Team Providers Care Trash Truck Driver Name Role Phone Ken Greer MD Primary Care Provider [phone] Kiel Powers Unavailable Unavailable Encounter Details Date Type Department Care Team (Late st Contact Info) Description 11/24/2024 Documentation Visit [facility] [address], [place] [id number] Yoanna Degroot, RN Social History Tobacco Use Types Packs/Day Years Used Date Smoking Tobacco: Every Day Cigarettes 1 26.1 Started: 1998 Smokeless Tobacco: Never Alcohol Use Standard Drinks/Week Comments Yes 0 (1 standard drink = 0.6 oz pur e alcohol) Socially [facility] Utilities Answer Date Recorded In the [...] any time in the past 12 m [facility], were you homeless or living in a longterm (including now)? No 05/30/2024 [facility] - Inadequate Housing Answer Date Re corded What is your living situation today? I have a [facility] place to live 11/15/[address] you li ve. Do you have problems with any of the following? None of the above 11/15/2024 [facility] - Transportation Answer Date Record ed In the past 12 months, has l ack of reliable transportation kept you from medical appointments, meetings, work or from getting things needed for daily living? No 11/15/2024 [facility] - Personal Safety Answer Date Recor [...] curse at you? Never 11/15/2024 [facility] - Financial Strain Answer Date Cornel rded How hard is it for you to pa y for the very basics like food, housing, medical care, and heating? Would you say it is: Not hard at all 11/15/2024 [facility] - Employment Answer Date Recorded Do you want help finding or keeping work or a job? I do not need or want help 11/15/2024 [facility] - Social Connections Answer Date Re corded If for any reason you need h elp with day-to-day activities such as bathing, preparing meals, shopping, managing finances, etc., do you get the help you need? I get all the help I need 11/15/2024 How often do you feel lonely or isolated from those around you? Never 11/15/2024 [facility] - Education Answer Date Recorded Do you speak a language other than [place] at [facility]? No 11/15/2024 Do you want help with school or training? For example, starting or completing job training or getting a high school diploma, GED or equivalent. No 11/15/2024 [facility] - Physical Activity Answer Date Rec [...] your living situation today? I have a [facility] place to live 05/30/2024 Think [...] Contact Info) Description 12/06/2024 6:45 EST Treatment [facility] [address] [place] [address] Carlota Jin MD 1 [facility], [address] [place] [phone] 12/08/2024 6:45 EST Treatment [facility] [address] [place], [place] [id number] Carlota Jin MD [address] [facility], [facility] [address] [place] [phone] 12/11/2024 6:45 EST Treatment [facility] [address] [place], [place] [id number] Carlota Jin MD [address] [facility], [facility] [address] [place] [phone] 12/13/2024 6:45 EST Treatment [facility] [address] [place], [place] [id number] Carlota Jin MD [address] [facility], [facility] [address] [place] [phone] 12/15/2024 6:45 EST Treatment [facility] [address] [place], [place] [id number] Carlota Jin MD [address] [facility], [facility] [address] [place] [phone] 12/18/2024 6:45 EST Treatment [facility] [address] [place], [place] [id number] Carlota Jin MD [address] [facility], [facility] [address] [place] [phone] 12/20/2024 6:45 EST Treatment [facility] [place] [address] [place], [place] [id number] Carlota Jin MD 1 [facility], [facility] [address] [place] [phone] 12/22/2024 6:45 EST Treatment [facility] [address] [place], [place] [id number] Carlota Jin MD 1 [facility], [facility] [address] [place] [phone] 12/25/2024 6:45 EST Treatment [facility] [address] [place] [address] Carlota Jin MD [address] [facility], [address] [place] [address] [phone] 12/27/2024 6:45 EST Treatment [facility] [address] [place], [place] [id number] Carlota Jin MD [address] [facility], [address] [place] [address] [phone] 12/29/2024 6:45 EST Treatment [facility] [address] [place] [address] Carlota Jin MD [address] [facility], [facility] [address] [place] [phone] 01/01/2025 6:45 EDT Treatment [facility] [address] [place], [place] [id number] Carltoa Jin MD 1 [facility], [facility] [address] [place] [phone] 01/03/2025 6:45 EDT Treatment [facility] [address] [place], [place] [address] Carlota Jin MD [address] [facility], [facility] [address] [place] [phone] 01/05/2025 6:45 EDT Treatment [facility] [place] [address] [place], [place] [id number] Carlota Jin MD [address] [facility], [facility] 2 [place] [phone] 01/08/2025 6:45 EDT Treatment [facility] [address] [place] [address] Carlota Jin MD [address] [facility], [address] [place] [address] [phone] 01/10/2025 6:45 EDT Treatment [facility] [place] [address] [place], [place] [address] Carlota Jin MD [address] [facility], [facility] 2 [place] [phone] 01/12/2025 6:45 EDT Treatment [facility] [place] [address] [place], [place] [id number] Carlota Jin MD [address] [facility], [facility] 2 [place] [phone] 01/15/2025 6:45 EDT Treatment [facility] [place] [address] [place], [place] [address] Carlota Jin MD [address] [facility], [address] [place] [address] [phone] 01/17/2025 6:45 EDT Treatment [facility] [address] [place] [address] Carlota Jin MD [address] [facility], [address] [place] [address] [phone] 01/19/2025 6:45 EDT Treatment [facility] [address] [place], [place] [address] Carlota Jin MD [address] [facility], [address] [place] [address] [phone] 01/22/2025 6:45 EDT Treatment [facility] [place] [address] [place] [address] Carlota Jin MD [address] [facility], [address] [place] [address] [phone] 01/24/2025 6:45 EDT Treatment [facility] [place] [address] [place], [place] [id number] Carlota Jin MD [address] [phone] 01/26/2025 6:45 EDT Treatment [facility] [address] [place], [place] [address] Carlota Jin MD [address] [facility], [address] [place] [address] [phone] 01/29/2025 6:45 EDT Treatment [facility] [place] [address] [place], [place] [phone] Carlota Jin MD [address] [facility], [facility] 2 [place] [phone] 01/31/2025 6:45 EDT Treatment [facility] [address] [place], [place] [id number] Carlota Jin MD [address] [facility], [facility] [address] [place] [phone] 02/02/2025 6:45 EDT Treatment [facility] [address] [place], [place] [id number] Carlota Jin MD [address] [facility], [facility] 2 [place] [phone] 02/05/2025 6:45 EDT Treatment [facility] [address] [place], [place] [phone] Carlota Jin MD [address] [facility], [facility] 2 [place] [phone] 02/07/2025 6:45 EDT Treatment [facility] [address] [place], [place] [phone] Carlota Jin MD [address] [facility], [facility] 2 [place] [phone] 02/09/2025 6:45 EDT Treatment [facility] [address] [place], [place] [id number] Carlota Jin MD [address] [facility], [facility] [address] [place] [phone] 02/12/2025 6:45 EDT Treatment [facility] [address] [place], [place] [phone] Carlota Jin MD [address] [facility], [address] [place] [address] [phone] 02/14/2025 6:45 EDT Treatment [facility] [address] [place], [place] [phone] Carlota Jin MD [address] [facility], [address] [place] [address] [phone] 02/16/2025 6:45 EDT Treatment [facility] [address] [place], [place] [id number] Carlota Jin MD [address] [facility], [address] [place] [address] [phone] 02/19/2025 6:45 EDT Treatment [facility] [place] [address] [place], [place] [address] Carlota Jin MD [address] [facility], [facility] 2 [place] [phone] 02/21/2025 6:45 EDT Treatment [facility] [address] [place], [place] [phone] Carlota Jin MD [address] [facility], [address] [place] [phone] documented as of this encounter Visit Diagnoses Not on filedocumented in this encounter Care Teams Trash Truck Driver Relationship Specialty Start Date End Date Ken Greer MD [address] [place] [address] PCP - General 07/07/23 Kiel Powers Director Ambulatory Nephrology 05/31/24 documented as of this encounter
--- OUTSIDE RECORDS SUMMARY | 2024-12-05 11:53 | XMS_ITS | Encounter Summary ---
Author Organization [facility] Address [address] [place] [address] Care Team Providers Care Sheet Metal Superintendent Name Role Phone Ken Greer MD Primary Care Provider [phone] Kiel Powers Unavailable Unavailable Reason for Visit * Episode Based Medications (Routine) - New Request Specialty Diagnoses / Procedures Referred By Nader gardiner Referred To Contact Diagnoses ESRD (end stage renal disease) ([facility]) Carlota Jin MD [address] [place] [address], [facility] [address] [place] [address] Phone: tel: fax: [facility] - [place] [address] [place] [address] Phone: tel: fax: Referral ID Status Reason Start Date Expiration Date V isits Requested Visits Authorized [id number] New Request 03/17/2024 1 1 Encounter Details Date Type Department Care Team (Latest Contact Info) Description 12/01/2024 6:45 EST Treatment [facility] D[facility] [address] [place] [id number] Carlota Jin MD [address] [place] [address], [facility] [address] [place] [phone] ESRD (end stage renal disease) ([facility]) (Primary Dx); Secondary hyperparathyroidism ([facility]) Social History Tobacco Use Types Packs/Day Years Used Date Smoking Tobacco: Every Day Cigarettes 1 26.1 Started: 1998 Smokeless Tobacco: Never Alcohol Use Standard Drinks/Week Comments Yes 0 (1 standard drink = 0.6 oz pur e alcohol) Socially [facility] Utilities Answer Date Recorded In [...] any time in the past 12 m [facility], were you homeless or living in a fdc (including now)? No 05/30/2024 [facility] - Inadequate Housing Answer Date Re corded What is your living situation today? I have a [facility] place to live 11/15/[address] you li ve. Do you have problems with any of the following? None of the above 11/15/2024 [facility] - Transportation Answer Date Record ed In the past 12 months, has l ack of reliable transportation kept you from medical appointments, meetings, work or from getting things needed for daily living? No 11/15/2024 [facility] - Personal Safety Answer Date [...] scream or curse at you? Never 11/15/2024 [facility] - Financial Strain Answer Date Cornel rded How hard is it for you to pa y for the very basics like food, housing, medical care, and heating? Would you say it is: Not hard at all 11/15/2024 [facility] - Employment Answer Date Recorded Do you want help finding or keeping work or a job? I do not need or want help 11/15/2024 [facility] - Social Connections Answer Date Re corded If for any reason you need h elp with day-to-day activities such as bathing, preparing meals, shopping, managing finances, etc., do you get the help you need? I get all the help I need 11/15/2024 How often do you feel lonely or isolated from those around you? Never 11/15/2024 [facility] - Education Answer Date Recorded Do you speak a language other than [place] at [facility]? No 11/15/2024 Do you want help with school or training? For example, starting or completing job training or getting a high school diploma, GED or equivalent. No 11/15/2024 [facility] - Physical Activity Answer Date [...] hurt you? 05/30/2024 How often does anyone, amrtin lyons family, insult, scream, curse or threaten to hurt you? 05/30/2024 Living Situation Answer Date Recorded What is your living situation today? I have a [facility] place to live 05/30/2024 Think about [...] - Temperature - - Respiratory Rate 16 12/01/2024 0623 EST Oxygen Saturation - - Inhaled Oxygen Concentration - - Weight 82.2 kg (181 lb 3.5 oz) 12/01/[address] Height - - Body Mass Index 26 07/20/2024 1359 EDT documented in this encounter [...] encounter Miscellaneous Notes * Flowsheet Note - Melissa Crespo RN - 12/01/2024 1118 EST 12/01/24 1040 Post-Hemodialysis Assessment Total Blood Processed (L) 89.73 Liters On Line Clearance: spKt/V 1.49 spKt/V Dialyzer Clearance Lightly streaked Treatment UFR (ml:kg:hr) 13.41 ml:kg:hr Final Critline Profile (%/hr) -0.97 Final Profile Profile A Critline refill Negative (33.6/33.5) Fluid Removed (L) 4.5 L Post-Dialysis Scale Weight 95.2 kg (209 lb 14.1 oz) Wheelchair Weight 17.2 kg (37 lb 14.7 oz) Prosthesis Weight 0 kg (0 lb) Post-Treatment Weight (kg) 78 Treatment Weight Change (kg) 4.2 kg Day Target Weight (kg) 78.2 Post Sitting/Lying BP 154/75 Post Sitting/Lying pulse 63 Temp 36.7 ??C (98.1 ??F) Temp src Temporal Minutes Short -241 Post access assessment AVF/AFG Hemostasis achieved Yes Note pt held sites for 10 minutes with blue clamps. No issues Orientation Alert and Oriented x3 Yes Time Yes Place Yes Person Yes Cooperative Yes Disoriented No Discharge Ambulation Methods Departs via w/c Wrap up items Patient Response to Treatment Tolerated tx. Removed 4500 UF goal. Comments Stable upon DC from unit. documented in this encounter Plan of Treatment Upcoming Encounters Date Type Department Care Team (Late st Contact Info) Description 12/06/2024 6:45 EST Treatment [facility] - [place] [address] [place], [place] [id number] Carlota Jin MD [address] [place] [address], [address] [phone] 12/08/2024 6:45 EST Treatment [facility] [address] [place], [place] [id number] Carlota Jin MD [address] [place] [phone] 12/11/2024 6:45 EST Treatment [facility] [address] [place], [place] [id number] Carlota Jin MD [address] [place] [phone] 12/13/2024 6:45 EST Treatment [facility] [place] [address] [place], [place] [id number] Carlota Jin MD [address] [place] [phone] 12/15/2024 6:45 EST Treatment [facility] [address] [place] [id number] Carlota Jin MD 1 [facility], [facility] 2 [place] [phone] 12/18/2024 6:45 EST Treatment [facility] - [place] [address] [place], [place] [id number] Carlota Jin MD 1 [facility], [facility] 2 [place] [phone] 12/20/2024 6:45 EST Treatment [facility] - [place] [address] [place] [id number] Carlota Jin MD 1 [facility], [address] [phone] 12/22/2024 6:45 EST Treatment [facility] - [place] [address] [place], [place] [id number] Carlota Jin MD 1 [facility], [address] [phone] 12/25/2024 6:45 EST Treatment [facility] - [place] [address] [place] [id number] Carlota Jin MD 1 [facility], [facility] [address] [place] [phone] 12/27/2024 6:45 EST Treatment [facility] - [place] [address] [place], [place] [id number] Carlota Jin MD 1 [facility], [facility] [address] [place] [phone] 12/29/2024 6:45 EST Treatment [facility] - [place] [address] [place], [place] [id number] Carlota Jin MD 1 [facility], [facility] [address] [place] [phone] 01/01/2025 6:45 EDT Treatment [facility] - [place] [address] [place], [place] [id number] Carlota Jin MD 1 [facility], [facility] [address] [place] [phone] 01/03/2025 6:45 EDT Treatment [facility] - [place] [address] [place], [place] [id number] Carlota Jin MD 1 [facility], [facility] [address] [place] [phone] 01/05/2025 6:45 EDT Treatment [facility] - [place] [address] [place], [place] [id number] Carlota Jin MD 1 [facility], [facility] [address] [place] [phone] 01/08/2025 6:45 EDT Treatment [facility] [place] [address] [place], [place] [id number] Carlota Jin MD 1 [facility], [facility] [address] [place] [phone] 01/10/2025 6:45 EDT Treatment [facility] - [place] [address] [place] [id number] Carlota Jin MD 1 [facility], [facility] [address] [place] [phone] 01/12/2025 6:45 EDT Treatment [facility] - [place] [address] [place], [place] [id number] Carlota Jin MD 1 [facility], [address] [phone] 01/15/2025 6:45 EDT Treatment [facility] - [place] [address] [place], [place] [id number] Carlota Jin MD 1 [facility], [address] [phone] 01/17/2025 6:45 EDT Treatment [facility] - [place] [address] [place], [place] [id number] Carlota Jin MD 1 [facility], [address] [phone] 01/19/2025 6:45 EDT Treatment [facility] - [place] [address] [place], [place] [id number] Carlota Jin MD 1 [facility], [address] [phone] 01/22/2025 6:45 EDT Treatment [facility] - [place] [address] [place], [place] [id number] Carlota Jin MD 1 [facility], [facility] [address] [place] [phone] 01/24/2025 6:45 EDT Treatment [facility] - [place] [address] [place], [place] [id number] Carlota Jin MD 1 [facility], [facility] 2 [place] [phone] 01/26/2025 6:45 EDT Treatment [facility] - [place] [address] [place], [place] [id number] Carlota Jin MD 1 [facility], [facility] 2 [place] [phone] 01/29/2025 6:45 EDT Treatment [facility] D[facility] - [place] [address] [place] [id number] Carlota Jin MD 1 [facility], [facility] [address] [place] [phone] 01/31/2025 6:45 EDT Treatment [facility] Dialys[facility] - [place] [address] [place], [place] [id number] Carlota Jin MD 1 [facility], [facility] 2 [place] [phone] 02/02/2025 6:45 EDT Treatment [facility] - [place] [address] [place], [place] [id number] Carlota Jin MD 1 [facility], [facility] 2 [place] [phone] 02/05/2025 6:45 EDT Treatment [facility] - [place] [address] [place], [place] [id number] Carlota Jin MD 1 [facility], [facility] [address] [place] [phone] 02/07/2025 6:45 EDT Treatment [facility] - [place] [address] [place], [place] [id number] Carlota Jin MD 1 [facility], [facility] 2 [place] [phone] 02/09/2025 6:45 EDT Treatment [facility] - [place] [address] [place], [place] [id number] Carlota Jin MD 1 [facility], [facility] 2 [place] [phone] 02/12/2025 6:45 EDT Treatment [facility] - [place] [address] [place], [place] [id number] Carlota Jin MD 1 [facility], [address] [phone] 02/14/2025 6:45 EDT Treatment [facility] - [place] [address] [place], [place] [id number] Carlota Jin MD 1 [facility], [facility] 2 [place] [phone] 02/16/2025 6:45 EDT Treatment [facility] D[facility] - [place] [address] [place], [place] [id number] Carlota Jin MD 1 [facility] 2 [place] [phone] 02/19/2025 6:45 EDT Treatment [facility] - [place] [address] [place] [id number] Carlota Jin MD 1 [facility], [address] [phone] 02/21/2025 6:45 EDT Treatment [facility] - [place] [address] [place] [id number] Carlota Jin MD 1 [facility], [address] [phone] documented as of this encounter Procedures Procedure Name Priority Date/Time Associated Diagnosis Comments HEMODIALYSIS Routine 12/01/2024 6:23 EST ESRD (end stage renal disease) ([facility]) documented in this encounter Visit Diagnoses Diagnosis ESRD (end stage renal disease) ([facility])- Primary End stage renal disease Secondary hyperparathyroidism ([facility]) Secondary hyperparathyroidism (of renal origin) documented in this encounter Administered Medications Inactive Administered Medications - up to 3 most recent administrations Medication Order MAR Action Action Date Dose Rate Site amino acids-protein hydrolysate (LiquaCel) 16 gram-100 kcal/30 mL liquid in packet 30 mL 30 mL, oral, ONCE IN DIALYSIS, 1 dose, On Wed12/01/24 at 0645, RoutineIndications:ESRD (end stage renal disease) ([facility]) Given 12/01/2024 6:45 EST 30 mL calcium carbonate (TUMS) tablet 500 mg (200 mg elemental calcium) 2 Tablet 2 Tablet, oral, ONCE IN DIALYSIS, 1 dose, On Wed12/01/24 at 0645, Routine, DialysisIndications:ESRD (end stage renal disease) ([facility]),Secondary hyperparathyroidism ([facility]) Given 12/01/2024 6:45 EST 2 Tablets epoetin ken (EPOGEN) 20,000 unit/2 mL injection 5,000 Units 5,000 Units, intravenous, ONCE IN DIALYSIS, 1 dose, On Wed12/01/24 at 0645, Routine, DialysisIndications:ESRD (end stage renal disease) ([facility]) Given 12/01/2024 6:45 EST 5,000 Units heparin injection 3,000 Units 3,000 Units, intravenous, ONCE IN DIALYSIS, 1 dose, On Wed12/01/24 at 0645, Routine, Dialysis, Now x1 bolus 1500 units to be given at the beginning of dialysis 500 units/hour to be given over the course of dialysis (3000 units total). Stop 1 hour prior to end of treatment. To be administered per Policy [id number].Indications:ESRD (end stage renal disease) ([facility]) Given 12/01/2024 6:45 EST 3,000 Units iron sucrose (VENOFER) injection 200 mg 200 mg, intravenous, ONCE IN DIALYSIS, 1 dose, On Wed12/01/24 at 0645, Routine, DialysisIndications:ESRD (end stage renal disease) ([facility]) Given 12/01/2024 6:46 EST 200 mg documented in this encounter Orders Dialysis Count Last Ordered Date First Orde red Date HEMODIALYSIS 1 12/01/2024 documented in this encounter Care Teams Sheet Metal Superintendent Relationship Specialty Start Date End Date Ken Greer MD [address] [place] [address] PCP - General 07/07/23 Kiel Powers Care Management Assistant Nephrology 05/31/24 documented as of this encounter
--- OUTSIDE RECORDS SUMMARY | 2024-12-05 11:53 | XMS_ITS | Encounter Summary ---
Author Organization [facility] Address [address] [place] [address] Care Team Providers Care Belt Conveyor Drier Name Role Phone Ken Greer MD Primary Care Provider [phone] Kiel Powers Unavailable Unavailable Encounter Details Date Type Department Care Team (Late st Contact Info) Description 11/28/2024 Documentation Visit [facility] [address] [place], [place] [address] Shelley Eden, RD [address] [place] [address] Social History Tobacco Use Types Packs/Day Years Used Date Smoking Tobacco: Every Day Cigarettes 1 26.1 Started: 1998 Smokeless Tobacco: Never Alcohol Use Standard Drinks/Week Comments Yes 0 (1 standard drink = 0.6 oz pur e alcohol) Socially [facility] Utilities Answer Date Recorded In the past 12 months has e [facility], gas, oil, or water 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 No 05/30/2024 [facility] - Inadequate Housing Answer Date Re corded What is your living situation today? I have a [facility] place to live 11/15/[address] you li ve. Do you have problems with any of the following? None of the above 11/15/2024 [facility] - Transportation Answer Date Record ed In the past 12 months, has l ack of reliable transportation kept you from medical appointments, meetings, work or from getting things needed for daily living? No 11/15/2024 [facility] - Personal Safety Answer Date [...] scream or curse at you? Never 11/15/2024 [facility] - Financial Strain Answer Date Cornel rded How hard is it for you to pa y for the very basics like food, housing, medical care, and heating? Would you say it is: Not hard at all 11/15/2024 [facility] - Employment Answer Date Recorded Do you want help finding or keeping work or a job? I do not need or want help 11/15/2024 [facility] - Social Connections Answer Date Re corded If for any reason you need h elp with day-to-day activities such as bathing, preparing meals, shopping, managing finances, etc., do you get the help you need? I get all the help I need 11/15/2024 How often do you feel lonely or isolated from those around you? Never 11/15/2024 [facility] - Education Answer Date Recorded Do you speak a language other than [place] at [facility]? No 11/15/2024 Do you want help with school or training? For example, starting or completing job training or getting a high school diploma, GED or equivalent. No 11/15/2024 [facility] - Physical Activity Answer Date [...] your living situation today? I have a [facility] place to live 05/30/2024 Think [...] Date of Assessment Author No 05/30/2024 18:25 EDDaria Whitfield RN * Because of a physical, mental, [...] Contact Info) Description 12/06/2024 6:45 EST Treatment [facility] [address] [place] [address] Carlota Jin MD 1 [facility] [address] [place] [phone] 12/08/2024 6:45 EST Treatment [facility] [place] [address] [place], [place] [id number] Carlota Jin MD 1 [facility], [address] [place] [phone] 12/11/2024 6:45 EST Treatment [facility] [place] [address] [place] [address] Carlota Jin MD 1 [facility], [facility] 2 [place] [phone] 12/13/2024 6:45 EST Treatment [facility] [place] [address] [place], [place] [address] [phone] Carlota Jin MD 1 [facility], [facility] 2 [place] [phone] 12/15/2024 6:45 EST Treatment [facility] [place] [address] [place] [address] Carlota Jin MD 1 [facility], [address] [place] [phone] 12/18/2024 6:45 EST Treatment [facility] [place] [address] [place], [place] [phone] Carlota Jin MD 1 [facility], [address] [place] [phone] 12/20/2024 6:45 EST Treatment [facility] [place] [address] [place], [place] [address] Carlota Jin MD 1 [facility], [facility] 2 [place] [phone] 12/22/2024 6:45 EST Treatment [facility] [place] [address] [place] [address] Carlota Jin MD 1 [facility], [address] [phone] 12/25/2024 6:45 EST Treatment [facility] [place] [address] [place], [place] [phone] Carlota Jin MD 1 [facility], [address] [phone] 12/27/2024 6:45 EST Treatment [facility] [place] [address] [place] [address] Carlota Jin MD 1 [facility], [address] [phone] 12/29/2024 6:45 EST Treatment [facility] [address] [place], [place] [id number] Carlota Jin MD [address] [phone] 01/01/2025 6:45 EDT Treatment [facility] [place] [address] [place], [place] [phone] Carlota Jin MD 1 [facility], [facility] 2 [place] [phone] 01/03/2025 6:45 EDT Treatment [facility] [place] [address] [place], [place] [id number] Carlota Jin MD 1 [facility], [facility] 2 [place] [phone] 01/05/2025 6:45 EDT Treatment [facility] [place] [address] [place], [place] [phone] Carlota Jin MD 1 [facility], [address] [phone] 01/08/2025 6:45 EDT Treatment [facility] [place] [address] [place], [place] [address] Carlota Jin MD 1 [facility], [facility] 2 [place] [phone] 01/10/2025 6:45 EDT Treatment [facility] [place] [address] [place], [place] [phone] Carlota Jin MD 1 [facility], [facility] 2 [place] [phone] 01/12/2025 6:45 EDT Treatment [facility] [place] [address] [place], [place] [phone] Carlota Jin MD 1 [facility], [facility] 2 [place] [phone] 01/15/2025 6:45 EDT Treatment [facility] [place] [address] [place], [place] [phone] Carlota Jin MD 1 [facility], [facility] 2 [place] [phone] 01/17/2025 6:45 EDT Treatment [facility] [place] [address] [place], [place] [id number] Carlota Jin MD 1 [facility], [address] [phone] 01/19/2025 6:45 EDT Treatment [facility] [place] [address] [place], [place] [phone] Carlota Jin MD 1 [facility], [address] [phone] 01/22/2025 6:45 EDT Treatment [facility] [place] [address] [place], [place] [id number] Carlota Jin MD 1 [facility], [address] [phone] 01/24/2025 6:45 EDT Treatment [facility] [place] [address] [place], [place] [address] Carlota Jin MD 1 [facility], [facility] 2 [place] [phone] 01/26/2025 6:45 EDT Treatment [facility] [place] [address] [place], [place] [phone] Carlota Jin MD 1 [facility], [facility] 2 [place] [phone] 01/29/2025 6:45 EDT Treatment [facility] [place] [address] [place], [place] [address] Carlota Jin MD 1 [facility], [facility] 2 [place] [phone] 01/31/2025 6:45 EDT Treatment [facility] [place] [address] [place], [place] [phone] Carlota Jin MD 1 [facility], [facility] 2 [place] [phone] 02/02/2025 6:45 EDT Treatment [facility] [place] [address] [place], [place] [address] Carlota Jin MD 1 [facility], [facility] 2 [place] [phone] 02/05/2025 6:45 EDT Treatment [facility] [place] [address] [place] [address] Carlota Jin MD 1 [facility], [facility] 2 [place] [phone] 02/07/2025 6:45 EDT Treatment [facility] [place] [address] [place], [place] [address] Carlota Jin MD 1 [facility], [facility] 2 [place] [phone] 02/09/2025 6:45 EDT Treatment [facility] [place] [address] [place], [place] [phone] Carlota Jin MD 1 [facility], [facility] 2 [place] [phone] 02/12/2025 6:45 EDT Treatment [facility] [place] [address] [place], [place] [phone] Carlota Jin MD [address] [place] [address], [address] [phone] 02/14/2025 6:45 EDT Treatment [facility] [place] [address] [place], [place] [phone] Carlota Jin MD [address] [place] [address], [address] [phone] 02/16/2025 6:45 EDT Treatment [facility] [place] [address] [place], [place] [phone] Carlota Jin MD [address] [place] [address], [facility] 2 [place] [phone] 02/19/2025 6:45 EDT Treatment [facility] [place] [address] [place], [place] [phone] Carlota Jin MD [address] [place] [address], [facility] 2 [place] [phone] 02/21/2025 6:45 EDT Treatment [facility] [place] [address] [place], [place] [phone] Carlota Jin MD 1 [facility], [address] [place] [phone] documented as of this encounter Visit Diagnoses Not on filedocumented in this encounter Care Teams Belt Conveyor Drier Relationship Specialty Start Date End Date Ken Greer MD [facility] [place] [address] PCP - General 07/07/23 Kiel Powers Interventional Radiology Tech Nephrology 05/31/24 documented as of this encounter
--- OUTSIDE RECORDS SUMMARY | 2024-12-05 11:53 | XMS_ITS | Encounter Summary ---
Author Organization [facility] Address [address] [place] [address] Care Team Providers Care Retail Advertising Executive Name Role Phone Ken Greer MD Primary Care Provider [phone] Kiel Powers Unavailable Unavailable Encounter Details Date Type Department Care Team (Late st Contact Info) Description 11/24/2024 Documentation Visit [facility] [address] [place], [place] [id number] Melissa Crespo, RN Social History Tobacco Use Types Packs/Day Years Used Date Smoking Tobacco: Every Day Cigarettes 1 26.1 Started: 1998 Smokeless Tobacco: Never Alcohol Use Standard Drinks/Week Comments Yes 0 (1 standard drink = 0.6 oz pur e alcohol) Socially [facility] Utilities Answer Date Recorded In the past [...] any time in the past 12 m [facility], were you homeless or living in a [facility] (including now)? No 05/30/2024 [facility] - Inadequate Housing Answer Date Re corded What is your living situation today? I have a [facility] place to live 11/15/[address] you li ve. Do you have problems with any of the following? None of the above 11/15/2024 [facility] - Transportation Answer Date Record ed In the past 12 months, has l ack of reliable transportation kept you from medical appointments, meetings, work or from getting things needed for daily living? No 11/15/2024 [facility] - Personal Safety Answer Date Recor ded [...] scream or curse at you? Never 11/15/2024 [facility] - Financial Strain Answer Date Cornel rded How hard is it for you to pa y for the very basics like food, housing, medical care, and heating? Would you say it is: Not hard at all 11/15/2024 [facility] - Employment Answer Date Recorded Do you want help finding or keeping work or a job? I do not need or want help 11/15/2024 [facility] - Social Connections Answer Date Re corded If for any reason you need h elp with day-to-day activities such as bathing, preparing meals, shopping, managing finances, etc., do you get the help you need? I get all the help I need 11/15/2024 How often do you feel lonely or isolated from those around you? Never 11/15/2024 [facility] - Education Answer Date Recorded Do you speak a language other than [facility] [facility]? No 11/15/2024 Do you want help with school or training? For example, starting or completing job training or getting a high school diploma, GED or equivalent. No 11/15/2024 [facility] - Physical Activity Answer Date Rec orded [...] your living situation today? I have a [facility] place to live 05/30/2024 Think about [...] Contact Info) Description 12/06/2024 6:45 EST Treatment [facility] [address] [place] [address] Carlota Jin MD 1 [facility], [address] [place] [phone] 12/08/2024 6:45 EST Treatment [facility] [place] [address] [place], [place] [phone] Carlota Jin MD 1 [facility], [facility] 2 [place] [phone] 12/11/2024 6:45 EST Treatment [facility] [place] [address] [place], [place] [phone] Carlota Jin MD 1 [facility], [facility] 2 [place] [phone] 12/13/2024 6:45 EST Treatment [facility] [address] [place], [place] [phone] Carlota Jin MD 1 [facility], [facility] 2 [place] [phone] 12/15/2024 6:45 EST Treatment [facility] [address] [place], [place] [address] Carlota Jin MD 1 [facility], [facility] 2 [place] [phone] 12/18/2024 6:45 EST Treatment [facility] [place] [address] [place], [place] [phone] Carlota iJn MD 1 [facility], [facility] 2 [place] [phone] 12/20/2024 6:45 EST Treatment [facility] [place] [address] [place], [place] [phone] Carlota Jin MD 1 [facility], [facility] 2 [place] [phone] 12/22/2024 6:45 EST Treatment [facility] [place] [address] [place], [place] [phone] Carlota Jin MD 1 [facility], [facility] 2 [place] [phone] 12/25/2024 6:45 EST Treatment [facility] [place] [address] [place] [address] Carlota Jin MD 1 [facility], [address] [phone] 12/27/2024 6:45 EST Treatment [facility] [place] [address] [place], [place] [phone] Carlota Jin MD 1 [facility], [address] [phone] 12/29/2024 6:45 EST Treatment [facility] [place] [address] [place] [address] Carlota Jin MD 1 [facility], [facility] 2 [place] [phone] 01/01/2025 6:45 EDT Treatment [facility] [place] [address] [place], [place] [phone] Carlota Jin MD 1 [facility], [facility] 2 [place] [phone] 01/03/2025 6:45 EDT Treatment [facility] [place] [address] [place], [place] [address] Carlota Jin MD 1 [facility], [facility] 2 [place] [phone] 01/05/2025 6:45 EDT Treatment [facility] [place] [address] [place], [place] [phone] Carlota Jin MD 1 [facility], [facility] 2 [place] [phone] 01/08/2025 6:45 EDT Treatment [facility] [place] [address] [place] [address] Carlota Jin MD 1 [facility], [address] [phone] 01/10/2025 6:45 EDT Treatment [facility] [place] [address] [place], [place] [address] Carlota Jin MD 1 [facility], [facility] 2 [place] [phone] 01/12/2025 6:45 EDT Treatment [facility] [place] [address] [place], [place] [phone] Carlota Jin MD 1 [facility], [facility] 2 [place] [phone] 01/15/2025 6:45 EDT Treatment [facility] [place] [address] [place], [place] [address] Carlota Jin MD 1 [facility], [address] [phone] 01/17/2025 6:45 EDT Treatment [facility] [place] [address] [place] [address] Carlota Jin MD 1 [facility], [address] [phone] 01/19/2025 6:45 EDT Treatment [facility] [place] [address] [place], [place] [address] Carlota Jin MD 1 [facility], [address] [phone] 01/22/2025 6:45 EDT Treatment [facility] [place] [address] [place] [address] Carlota Jin MD 1 [facility], [address] [phone] 01/24/2025 6:45 EDT Treatment [facility] [place] [address] [place], [place] [phone] Carlota Jin MD [address] [phone] 01/26/2025 6:45 EDT Treatment [facility] [place] [address] [place], [place] [address] Carloat Jin MD 1 [facility], [address] [phone] 01/29/2025 6:45 EDT Treatment [facility] [place] [address] [place], [place] [phone] Carlota Jin MD 1 [facility], [facility] 2 [place] [phone] 01/31/2025 6:45 EDT Treatment [facility] [place] [address] [place], [place] [phone] Carlota Jin MD 1 [facility], [facility] 2 [place] [phone] 02/02/2025 6:45 EDT Treatment [facility] [place] [address] [place], [place] [phone] Carlota Jin MD 1 [facility], [facility] 2 [place] [phone] 02/05/2025 6:45 EDT Treatment [facility] [place] [address] [place], [place] [id number] Carlota Jin MD 1 [facility], [facility] 2 [place] [phone] 02/07/2025 6:45 EDT Treatment [facility] [place] [address] [place], [place] [phone] Carlota Jin MD 1 [facility], [facility] 2 [place] [phone] 02/09/2025 6:45 EDT Treatment [facility] [place] [address] [place], [place] [phone] Carlota Jin MD 1 [facility], [facility] 2 [place] [phone] 02/12/2025 6:45 EDT Treatment [facility] [place] [address] [place], [place] [phone] Carlota Jin MD 1 [facility], [address] [phone] 02/14/2025 6:45 EDT Treatment [facility] [place] [address] [place], [place] [phone] Carlota Jin MD 1 [facility], [address] [phone] 02/16/2025 6:45 EDT Treatment [facility] [place] [address] [place], [place] [id number] Carlota Jin MD 1 [facility], [address] [phone] 02/19/2025 6:45 EDT Treatment [facility] [place] [address] [place], [place] [address] Carlota Jin MD 1 [facility], [facility] 2 [place] [phone] 02/21/2025 6:45 EDT Treatment [facility] [place] [address] [place], [place] [phone] Carlota Jin MD 1 [facility], [address] [place] [phone] documented as of this encounter Visit Diagnoses Not on filedocumented in this encounter Care Teams Retail Advertising Executive Relationship Specialty Start Date End Date Ken Greer MD [address] [place] [address] PCP - General 07/07/23 Kiel Powers Mult Au Matic Operator Nephrology 05/31/24 documented as of this encounter
--- OUTSIDE RECORDS SUMMARY | 2024-12-05 11:53 | XMS_ITS | Encounter Summary ---
Author Organization [facility] Address [address] [place] [address] Care Team Providers Care Front End Web Developer Name Role Phone Ken Greer MD Primary Care Provider [phone] Kiel Powers Unavailable Unavailable Encounter Details Date Type Department Care Team (Late st Contact Info) Description 11/20/2024 Documentation Visit [facility] [address] [place], [place] [id number] Shelley Eden, RD [address] [place] [address] Social History Tobacco Use Types Packs/Day Years Used Date Smoking Tobacco: Every Day Cigarettes 1 26.1 Started: 1998 Smokeless Tobacco: Never Alcohol Use Standard Drinks/Week Comments Yes 0 (1 standard drink = 0.6 oz pur e alcohol) Socially [facility] Utilities Answer Date Recorded In the past 12 months has e amBX, gas, oil, or water Do[employer] threatened to shut off services in your [...] time in the past 12 m [facility], were you homeless or living in a senior living (including now)? No 05/30/[address] [facility] - Inadequate Housing Answer Date Re corded What is your living situation today? [facility] 11/15/[address] you li ve. Do you have problems with any of the following? None of the above 11/15/[address] [facility] - Transportation Answer Date Record ed In the past 12 months, has l ack of reliable transportation kept you from medical appointments, meetings, work or from getting things needed for daily living? No 11/15/[address] [facility] - Personal Safety Answer Date Recor [...] scream or curse at you? Never 11/15/[address] [facility] - Financial Strain Answer Date Cornel rded How hard is it for you to pa y for the very basics like food, housing, medical care, and heating? Would you say it is: Not hard at all 11/15/[address] [facility] - Employment Answer Date Recorded Do you want help finding or keeping work or a job? I do not need or want help 11/15/[address] [facility] - Social Connections Answer Date Re corded If for any reason you need h elp with day-to-day activities such as bathing, preparing meals, shopping, managing finances, etc., do you get the help you need? I get all the help I need 11/15/2024 How often do you feel lonely or isolated from those around you? Never 11/15/[address] [facility] - Education Answer Date Recorded Do you speak a language other than [place] at [facility]? No 11/15/2024 Do you want help with school or training? For example, starting or completing job training or getting a high school diploma, GED or equivalent. No 11/15/[address] [facility] - Physical Activity Answer Date Rec [...] your living situation today? [facility] 05/30/2024 Think about [...] In the past 12 months has e amBX, gas, oil, or water [employer] threatened to shut off services in your [...] No 05/30/2024 18:25 EDDaria Whitfield RN * Do you have serious difficulty [...] documented in this encounter Progress Notes * Shelley Eden, RD - 11/20/2024 0848 EST Dialysis Dietitian's Monthly Assessment Met with patient on Met with pt and on 11/06/24 Family/caregivers or others present: lives with his Information obtained from: patient Recent Hospitalizations: 03/13-03/14/24 COVID , 02/18/24-02/25/24 BKA, 11/07-10/31/23 COVID and diabetic foot infection 02/20 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 Spoke with regarding continued high K level noted he has been eating icelandic fries - also not taking his kaexylate powder. He cont to have issues with his swallow an is supposed to have swallow study done in [facility] this month. said he is taking renvela - we discussed getting med thru [facility] Appetite: Very good Appetite scale (0-10): No number given Gastrointestinal: ? Issues with swallow - pt having swallow study - pt also with diarrhea at times Skin integrity: NO open areas per Diabetes: Yes 98 at HD today Diabetes Management: Self Monitoring of Blood Glucose on insulin Diet Recall: B toast with PB L could not recall D turkey s/w with fries Fluid: Water, Coffee, Milk, Juice, tea Alcohol: when asking she reports none Prescribed Weight:75.5 Post-Dialytic Weight: 76.4 11/08/2024 10:45 11/10/2024 10:51 11/13/2024 10:40 11/15/2024 10:42 11/17/2024 10:49 - ( Kg ) 76.9 76.2 77.6 77.2 76.4 UFR: 11/08/2024 10:45 11/10/2024 10:51 11/13/2024 10:40 11/15/2024 10:42 11/17/2024 10:49 - mL/Kg/hr 14.01 ml:kg:hr 13.02 ml:kg:hr 13.42 ml:kg:hr 12.79 ml:kg:hr 12.68 ml:kg:hr URR: 68.571 (Calculated from:; BUN Pre-Dialysis: 70 mg/dL at 10/30/2024 11:05; BUN Post-Dialysis: 22 mg/dL at 10/30/2024 11:05) Kt/V: 1.42 (Calculated from:; BUN Pre-Dialysis: 70 mg/dL at 10/30/2024 11:05; BUN Post-Dialysis: 22 mg/dL at 10/30/2024 11:05; Pre-Treatment Weight (kg): 81.1 at 10/30/2024 6:29; Post-Treatment Weight (kg): 77.1 at 10/30/2024 10:55; Duration of Treatment (minutes): 243 minutes at 10/30/2024 10:55) PCR: 1.22 (Calculated from:; BUN Pre-Dialysis: 70 mg/dL at 10/30/2024 11:05; BUN Post-Dialysis: 22 mg/dL at 10/30/2024 11:05; Pre-Treatment Weight (kg): 81.1 at 10/30/2024 6:29; Post-Treatment Weight (kg):77.1 at 10/30/2024 10:55; Duration of Treatment (minutes): 243 minutes at 10/30/2024 10:55; Age: 58 years) Pertinent Labs include: Lab Results Component Value Date LABALBU 3.4 10/30/2024 LABALBU 3.3 (L) 09/25/2024 Lab Results Component Value Date BUNPRE 70 (H) 10/30/2024 BUNPRE 70 (H) 10/30/2024 NA 139 10/30/2024 NA 135 (L) 09/25/2024 K 7.0 (H) 10/30/2024 K 8.0 (H) 09/25/2024 CL 102 10/30/2024 CL 101 09/25/2024 CO2 23 10/30/2024 CO2 21 (L) 09/25/2024 MG 2.4 10/30/2024 MG 2.2 09/25/2024 CALCIUM 8.1 (L) 10/30/2024 CALCIUM 7.9 (L) 09/25/2024 CALCCA 8.6 (L) 10/30/2024 CALCCA 8.5 (L) 09/25/2024 PHOS 9.9 (H) 10/30/2024 PHOS 11.2 (H) 09/25/2024 ALKPHOS 80 10/30/2024 ALKPHOS 80 09/25/2024 PTH 641.9 (H) 10/30/2024 PTH 712 (H) 07/31/2024 PLT 240 11/15/2024 PLT 252 11/08/2024 MCV 94 11/15/2024 MCV 92 11/08/2024 [id number] 342 10/30/2024 [id number] 607 10/27/2023 VITD 28 (L) 10/30/2024 VITD 21 (L) 10/27/2023 FOLATE >24.0 10/30/2024 FOLATE >24.0 10/27/2023 HGBA1C 11.6 (H) 11/07/2023 Protein/calorie supplements: swapnil on HD days Have discussed using a protein powder at home several times Renal/other vitamins: cholecalciferol (Vitamin D3) - 2000 IU daily - may need to increase dose On renal vitamin Herbal/OTC supplements: None 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 Wt loss of ~11 kg this pat year r/t recent amputations however wt has been stable these last 6 months. 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 - on 2 tums at HD, Renvela (recmd 3) TID with meals - unclear if he is taking - says he is taking PTH WNL - no calcitriol Vitamin Status: B12 and folate WNL - on renal vitamin - D25 level low -on 2000 IU D3 - may need to increase dose Diabetes management: on insulin - per some high levels Education Materials provided: Nutrition Lab Report-given monthly Potassium education- given again on 03/10 Phosphorus education- given again on 03/10 Milk alternatives and low phos cheese list given 6/14 Fluid education - April 2023 Potassium Education -May 2023 Phos education sheet - July 2023 Holiday eating tips - Sep 16 and Oct 16 Extensive potassium education sheet - March 2024 Fluid education - April 2024 Potassium education - May 2024 Thanksgiving / holiday eating - Aug 2024 Assessment of Understanding: needs reinforcement Medical Nutrition Therapy Plan and Recommendation Revd high phos foods to limit monthly - Encourage consistency with binders and to avoid processed foods - cont renvela 3 at meals Cont liquacel at HD recmd protein powder at home -reinforced high protein needs Cont renal vitamin - confirm how much D3 he is taking - consider increase dose 4. Revd fluid management tips and encouraged to avoid salt - encouraged to avoid soup 5. Discussed high k level and revd diet - encouraged to take kayexalate as prescribed Shelley Eden RD, CD documented in this encounter Plan of Treatment Upcoming Encounters Date Type Department Care Team (Late st Contact Info) Description 12/06/2024 6:45 EST Treatment [facility] [address] [place], [place] [id number] Carlota Jin MD 1 [facility], [facility] [address] [place] [phone] 12/08/2024 6:45 EST Treatment [facility] [address] [place], [place] [id number] Carlota Jin MD 1 [facility], [facility] [address] [place] [phone] 12/11/2024 6:45 EST Treatment [facility] [address] [place], [place] [id number] Carlota Jin MD 1 [facility], [facility] [address] [place] [phone] 12/13/2024 6:45 EST Treatment [facility] [place] [address] [place], [place] [id number] Carlota Jin MD 1 [facility], [facility] [address] [place] [phone] 12/15/2024 6:45 EST Treatment [facility] [place] [address] [place], [place] [id number] Carlota Jin MD 1 [facility], [facility] [address] [place] [phone] 12/18/2024 6:45 EST Treatment [facility] [place] [address] [place], [place] [id number] Carlota Jin MD 1 [facility], [facility] [address] [place] [phone] 12/20/2024 6:45 EST Treatment [facility] [place] [address] [place], [place] [id number] Carlota Jin MD 1 [facility], [facility] [address] [place] [phone] 12/22/2024 6:45 EST Treatment [facility] [place] [address] [place], [place] [id number] Carlota Jin MD 1 [facility], [facility] [address] [place] [phone] 12/25/2024 6:45 EST Treatment [facility] [place] [address] [place], [place] [id number] Carlota Jin MD 1 [facility], Level [address] [place] [phone] 12/27/2024 6:45 EST Treatment [facility] [place] [address] [place], [place] [id number] Carlota Jin MD 1 [facility], [facility] [address] [place] [phone] 12/29/2024 6:45 EST Treatment [facility] [address] [place], [place] [id number] Carlota Jin MD 1 [facility], [facility] [address] [place] [phone] 01/01/2025 6:45 EDT Treatment [facility] [address] [place], [place] [id number] Carlota Jin MD 1 [facility], [facility] [address] [place] [phone] 01/03/2025 6:45 EDT [facility] [address] [place], [place] [id number] Carlota Jin MD 1 [facility], [facility] [address] [place] [phone] 01/05/2025 6:45 EDT Treatment [facility] [address] [place], [place] [id number] Carlota Jin MD 1 [facility], [facility] [address] [place] [phone] 01/08/2025 6:45 EDT Treatment [facility] [place] [address] [place], [place] [id number] Carlota Jin MD 1 [facility], [facility] [address] [place] [phone] 01/10/2025 6:45 EDT Treatment [facility] [place] [address] [place], [place] [id number] Carlota Jin MD 1 [facility], [facility] [address] [place] [phone] 01/12/2025 6:45 EDT Treatment [facility] [place] [address] [place], [place] [id number] Carlota Jin MD [address] [place] [address], [facility] [address] [place] [phone] 01/15/2025 6:45 EDT Treatment [facility] [place] [address] [place], [place] [id number] Carlota Jin MD 1 [facility], [facility] [address] [place] [phone] 01/17/2025 6:45 EDT Treatment [facility] [place] [address] [place], [place] [id number] Carlota Jin MD 1 [facility], [facility] [address] [place] [phone] 01/19/2025 6:45 EDT Treatment [facility] - [place] [address] [place], [place] [id number] Carlota Jin MD 1 [facility], [facility] [address] [place] [phone] 01/22/2025 6:45 EDT Treatment [facility] [place] [address] [place], [place] [id number] Carlota Jin MD 1 [facility], [facility] [address] [place] [phone] 01/24/2025 6:45 EDT Treatment [facility] [place] [address] [place] [address] Carlota Jin MD 1 [facility], [address] [phone] 01/26/2025 6:45 EDT Treatment [facility] [place] [address] [place], [place] [id number] Carlota Jin MD 1 [facility], [address] [phone] 01/29/2025 6:45 EDT Treatment [facility] [place] [address] [place] [address] Carlota Jin MD 1 [facility], [facility] [address] [place] [phone] 01/31/2025 6:45 EDT Treatment [facility] [place] [address] [place], [place] [id number] Carlota Jin MD 1 [facility], [facility] [address] [place] [phone] 02/02/2025 6:45 EDT Treatment [facility] [place] [address] [place], [place] [id number] Carlota Jin MD 1 [facility], [facility] [address] [place] [phone] 02/05/2025 6:45 EDT Treatment [facility] [place] [address] [place], [place] [id number] Carlota Jin MD 1 [facility], [facility] [address] [place] [phone] 02/07/2025 6:45 EDT Treatment [facility] [place] [address] [place] [address] Carlota Jin MD 1 [facility], [address] [phone] 02/09/2025 6:45 EDT Treatment [facility] [place] [address] [place], [place] [id number] Carlota Jin MD 1 [facility], [facility] [address] [place] [phone] 02/12/2025 6:45 EDT Treatment [facility] [place] [address] [place], [place] [id number] Carlota Jin MD 1 [facility], [facility] [address] [place] [phone] 02/14/2025 6:45 EDT Treatment [facility] [place] [address] [place], [place] [id number] Carlota Jin MD 1 [facility], [address] [phone] 02/16/2025 6:45 EDT Treatment [facility] [place] [address] [place], [place] [id number] Carlota Jin MD 1 [facility], [address] [phone] 02/19/2025 6:45 EDT Treatment [facility] [place] [address] [place], [place] [id number] Carlota Jin MD 1 [facility], [address] [phone] 02/21/2025 6:45 EDT Treatment [facility] [address] [place], [place] [id number] Carlota Jin MD 1 [facility], [address] [phone] documented as of this encounter Visit Diagnoses Not on filedocumented in this encounter Care Teams Front End Web Developer Relationship Specialty Start Date End Date [place] [address] PCP - General 07/07/23 Kiel Powers Slot Key Person Nephrology 05/31/24 documented as of this encounter
--- OUTSIDE RECORDS SUMMARY | 2024-12-05 11:53 | XMS_ITS | Encounter Summary ---
Author Organization [facility] Address [address] [place] [address] Care Team Providers Care Maintenance Pipefitter Name Role Phone Ken Greer MD Primary Care Provider Kiel Powers Unavailable Unavailable Reason for Visit * Episode Based Medications (Routine) - New Request Specialty Diagnoses / Procedures Referred By Nader gardiner Referred To Contact Diagnoses ESRD (end stage renal disease) ([facility]) Carlota Jin MD [address] [place] [address], [facility] [address] [place] [address] Phone: tel: fax: [facility] [place] [address] [place] [address] Phone: tel: fax: Referral ID Status Reason Start Date Expiration Date V isits Requested Visits Authorized [id number] New Request 03/17/2024 1 1 Encounter Details Date Type Department Care Team (Latest Contact Info) Description 11/20/2024 6:45 EST Treatment [facility] [address] [place] [id number] Carlota Jin MD [address] [place] [address], [facility] [address] [place] [address] ESRD (end stage renal disease) ([facility]) (Primary Dx); Secondary hyperparathyroidism ([facility]) Social History Tobacco Use Types Packs/Day Years Used Date Smoking Tobacco: Every Day Cigarettes 1 26.1 Started: 1998 Smokeless Tobacco: Never Alcohol Use Standard Drinks/Week Comments Yes 0 (1 standard drink = 0.6 oz pur e alcohol) Socially [facility] Utilities Answer Date Recorded In the [...] time in the past [address] [facility], were you homeless or living in a care home (including now)? No 05/30/2024 [facility] - Inadequate Housing Answer Date Re corded What is your living situation today? I have a [facility] place to live 11/15/[address] you li ve. Do you have problems with any of the following? None of the above 11/15/2024 [facility] - Transportation Answer Date Record ed In the past 12 months, has l ack of reliable transportation kept you from medical appointments, meetings, work or from getting things needed for daily living? No 11/15/2024 [facility] - Personal Safety Answer Date Recor [...] scream or curse at you? Never 11/15/2024 [facility] - Financial Strain Answer Date Cornel rded How hard is it for you to pa y for the very basics like food, housing, medical care, and heating? Would you say it is: Not hard at all 11/15/2024 [facility] - Employment Answer Date Recorded Do you want help finding or keeping work or a job? I do not need or want help 11/15/2024 [facility] - Social Connections Answer Date Re corded If for any reason you need h elp with day-to-day activities such as bathing, preparing meals, shopping, managing finances, etc., do you get the help you need? I get all the help I need 11/15/2024 How often do you feel lonely or isolated from those around you? Never 11/15/2024 [facility] - Education Answer Date Recorded Do you speak a language other than [place]isian at [facility]? No 11/15/2024 Do you want help with school or training? For example, starting or completing job training or getting a high school diploma, GED or equivalent. No 11/15/2024 [facility] - Physical Activity Answer Date Rec [...] your living situation today? I have a [facility] place to live 05/30/2024 Think about [...] - Temperature - - Respiratory Rate 16 11/20/2024 0621 EST Oxygen Saturation - - Inhaled Oxygen Concentration - - Weight 81.2 kg (179 lb 0.2 oz) 11/20/[address] Height - - Body Mass Index 25.69 07/20/2024 1359 EDT documented in this encounter [...] Progress Notes * Marcela Cox RN - 11/20/2024 0645 EST 0915- BS 75 per Freestyle Maris meter- cranberry juice given 15 min recheck- 80 per Freestyle Maris meter (93 via our glucometer)- will continue to recheck 45 min recheck- 135, no further intervention needed, Maris with continue to monitor and alert pt for low BS documented in this encounter Miscellaneous Notes * Flowsheet Note - Marcela Cox RN - 11/20/2024 1303 EST 11/20/24 1037 Post-Hemodialysis Assessment Total Blood Processed (L) 90.41 Liters On Line Clearance: spKt/V 1.48 spKt/V Dialyzer Clearance Lightly streaked Treatment UFR (ml:kg:hr) 12.56 ml:kg:hr Fluid Removed (L) 4.3 L Post-Dialysis Scale Weight 93.8 kg (206 lb 12.7 oz) Wheelchair Weight 16.5 kg (36 lb 6 oz) Prosthesis Weight 0 kg (0 lb) Post-Treatment Weight (kg) 77.3 Treatment Weight Change (kg) 3.9 kg Day Target Weight (kg) 77.4 Post Sitting/Lying BP 155/64 Post Sitting/Lying pulse 65 Temp 36.7 ??C (98.1 ??F) Temp src Temporal Minutes Short -241 Post access assessment AVF/AFG Hemostasis achieved Yes Note 10 minute hold both sites Orientation Alert and Oriented x3 Yes Time Yes Place Yes Person Yes Cooperative Yes Disoriented No Discharge Ambulation Methods Departs via w/c Wrap up items Patient Response to Treatment Tolerated tx well. Removed 4.3L UF goal without difficulty. Comments see alternate RN note for BS readings and interventions documented in this encounter Plan of Treatment Upcoming Encounters Date Type Department Care Team (Late st Contact Info) Description 12/06/2024 6:45 EST Treatment [facility] [address] [place], [place] [phone] Carlota Jin MD 1 [facility] [address] [place] [phone] 12/08/2024 6:45 EST Treatment [facility] [address] [place], [place] [phone] Carlota Jin MD 1 [facility], [facility] [address] [place] [phone] 12/11/2024 6:45 EST Treatment [facility] [address] [place], [place] [phone] Carlota Jin MD 1 [facility], [facility] [address] [place] [phone] 12/13/2024 6:45 EST Treatment [facility] [address] [place], [place] [phone] Carlota Jin MD 1 [facility], [facility] [address] [place] [phone] 12/15/2024 6:45 EST Treatment [facility] [place] [address] [place], [place] [phone] Carlota Jin MD 1 [facility], [facility] [address] [place] [phone] 12/18/2024 6:45 EST Treatment [facility] [place] [address] [place] [address] Carlota Jin MD 1 [facility], [facility] [address] [place] [phone] 12/20/2024 6:45 EST Treatment [facility] [place] [address] [place], [place] [phone] Carlota Jin MD 1 [facility], [facility] [address] [place] [phone] 12/22/2024 6:45 EST Treatment [facility] [place] [address] [place] [address] Carlota Jin MD 1 [facility], [facility] [address] [place] [phone] 12/25/2024 6:45 EST Treatment [facility] [place] [address] [place], [place] [phone] Carlota Jin MD 1 [facility], [facility] [address] [place] [phone] 12/27/2024 6:45 EST Treatment [facility] [place] [address] [place], [place] [phone] Carlota Jin MD 1 [facility], [facility] [address] [place] [phone] 12/29/2024 6:45 EST Treatment [facility] [place] [address] [place], [place] [phone] Carlota Jin MD 1 [facility], [facility] [address] [place] [phone] 01/01/2025 6:45 EDT Treatment [facility] [place] [address] [place], [place] [phone] Carlota Jin MD 1 [facility], [facility] [address] [place] [phone] 01/03/2025 6:45 EDT Treatment [facility] [place] [address] [place], [place] [phone] Carlota Jin MD 1 [facility], [facility] [address] [place] [phone] 01/05/2025 6:45 EDT Treatment [facility] [place] [address] [place], [place] [phone] Carlota Jin MD 1 [facility], [facility] [address] [place] [phone] 01/08/2025 6:45 EDT Treatment [facility] [place] [address] [place], [place] [address] Carlota Jin MD 1 [facility], [facility] [address] [place] [phone] 01/10/2025 6:45 EDT Treatment [facility] [place] [address] [place] [address] Carlota Jin MD 1 [facility], [address] [phone] 01/12/2025 6:45 EDT Treatment [facility] [place] [address] [place], [place] [address] Carloat Jin MD 1 [facility], [address] [phone] 01/15/2025 6:45 EDT Treatment [facility] [place] [address] [place] [address] Carlota Jin MD 1 [facility], [address] [phone] 01/17/2025 6:45 EDT Treatment [facility] [place] [address] [place], [place] [phone] Carlota Jin MD [address] [phone] 01/19/2025 6:45 EDT Treatment [facility] [place] [address] [place], [place] [phone] Carlota Jin MD 1 [facility], [facility] [address] [place] [phone] 01/22/2025 6:45 EDT Treatment [facility] [place] [address] [place], [place] [id number] Carlota Jin MD 1 [facility], [facility] [address] [place] [phone] 01/24/2025 6:45 EDT Treatment [facility] [place] [address] [place], [place] [phone] Carlota Jin MD 1 [facility], [facility] [address] [place] [phone] 01/26/2025 6:45 EDT Treatment [facility] [place] [address] [place], [place] [phone] Carlota Jin MD 1 [facility], [facility] [address] [place] [phone] 01/29/2025 6:45 EDT Treatment [facility] [place] [address] [place], [place] [phone] Carlota Jin MD 1 [facility], [facility] [address] [place] [phone] 01/31/2025 6:45 EDT Treatment [facility] [address] [place], [place] [phone] Carlota Jin MD 1 [facility], [facility] [address] [place] [phone] 02/02/2025 6:45 EDT Treatment [facility] [place] [address] [place], [place] [address] Carlota Jin MD 1 [facility], [facility] [address] [place] [phone] 02/05/2025 6:45 EDT Treatment [facility] [place] [address] [place], [place] [id number] Carlota Jin MD 1 [facility], [facility] [address] [place] [phone] 02/07/2025 6:45 EDT Treatment [facility] [place] [address] [place], [place] [phone] Carlota Jin MD 1 [facility], [address] [phone] 02/09/2025 6:45 EDT Treatment [facility] [place] [address] [place], [place] [phone] Carlota Jin MD 1 [facility], [facility] [address] [place] [phone] 02/12/2025 6:45 EDT Treatment [facility] [place] [address] [place], [place] [id number] Carlota Jin MD 1 [facility], [facility] [address] [place] [phone] 02/14/2025 6:45 EDT Treatment [facility] [place] [address] [place], [place] [id number] Carlota Jin MD 1 [facility], [facility] [address] [place] [phone] 02/16/2025 6:45 EDT Treatment [facility] [place] [address] [place], [place] [id number] Carlota Jin MD 1 [facility], [facility] [address] [place] [phone] 02/19/2025 6:45 EDT Treatment [facility] [place] [address] [place], [place] [id number] Carlota Jin MD 1 [facility], [facility] [address] [place] [phone] 02/21/2025 6:45 EDT Treatment [facility] [place] [address] [place], [place] [phone] Carlota Jin MD 1 [facility], [facility] [address] [place] [phone] documented as of this encounter Procedures Procedure Name Priority Date/Time Associated Diagnosis Comments POCT GLUCOSE, INTERFACED Routine 11/20/2024 9:32 EST HEMODIALYSIS Routine 11/20/2024 6:21 EST ESRD (end stage renal disease) ([facility]) documented in this encounter Results * POCT GLUCOSE, INTERFACED (11/20/2024 9:32 EST) Glucose, POC 93 70 - 100 mg/dL 11/21/2024 8:29 EST [facility] HN LAB POC COMMENT (GLUCOSE) Test Performed by Nursing Services 11/21/2024 8:29 EST [facility] Blood CAPILLARY BLOOD / Unknown 11/20/2024 9:32 EST 11/21/2024 8:29 EST us Carlota Jin MD POINT OF CARE TEST ORDERA BLES Final Result [facility] [address] [place] [phone] documented in this encounter Visit Diagnoses Diagnosis ESRD (end stage renal disease) ([facility])- Primary End stage renal disease Secondary hyperparathyroidism ([facility]) Secondary hyperparathyroidism (of renal origin) documented in this encounter Administered Medications Inactive Administered Medications - up to 3 most recent administrations Medication Order MAR Action Action Date Dose Rate Site acetaminophen (TYLENOL) tablet 650 mg 650 mg, oral, EVERY 4 HOURS PRN, Starting on Wed11/20/24 at 0921, Until Wed11/20/24 at 1503, Pain, Routine, DialysisIndications:ESRD (end stage renal disease) ([facility]) Given 11/20/2024 9:22 EST 650 mg amino acids-protein hydrolysate (LiquaCel) 16 gram-100 kcal/30 mL liquid in packet 30 mL 30 mL, oral, ONCE IN DIALYSIS, 1 dose, On Wed11/20/24 at 0645, RoutineIndications:ESRD (end stage renal disease) ([facility]) Given 11/20/2024 6:29 EST 30 mL calcium carbonate (TUMS) tablet 500 mg (200 mg elemental calcium) 2 Tablet 2 Tablet, oral, ONCE IN DIALYSIS, 1 dose, On Wed11/20/24 at 0645, Routine, DialysisIndications:ESRD (end stage renal disease) ([facility]),Secondary hyperparathyroidism ([facility]) Given 11/20/2024 6:28 EST 2 Tablets epoetin ken (EPOGEN) 20,000 unit/2 mL injection 5,000 Units 5,000 Units, intravenous, ONCE IN DIALYSIS, 1 dose, On Wed11/20/24 at 0645, Routine, DialysisIndications:ESRD (end stage renal disease) ([facility]) Given 11/20/2024 6:43 EST 5,000 Units heparin injection 3,000 Units 3,000 Units, intravenous, ONCE IN DIALYSIS, 1 dose, On Wed11/20/24 at 0645, Routine, Dialysis, Now x1 bolus 1500 units to be given at the beginning of dialysis 500 units/hour to be given over the course of dialysis (3000 units total). Stop 1 hour prior to end of treatment. To be administered per Policy [id number].Indications:ESRD (end stage renal disease) ([facility]) Given 11/20/2024 6:43 EST 3,000 Units documented in this encounter Orders Dialysis Count Last Ordered Date First Orde red Date HEMODIALYSIS 1 11/20/2024 documented in this encounter Care Teams Maintenance Pipefitter Relationship Specialty Start Date End Date Ken Greer MD [facility] [place] [address] PCP - General 07/07/23 Kiel Powers Retail Coverage Merchandiser Nephrology 05/31/24 documented as of this encounter
--- OUTSIDE RECORDS SUMMARY | 2024-12-05 11:53 | XMS_ITS | Encounter Summary ---
Author Organization [facility] Address [address] [place] [address] Care Team Providers Care Department Head [employer] Name Role Phone Ken Greer MD Primary Care Provider [phone] Kiel Powers Unavailable Unavailable Reason for Visit * Episode Based Medications (Routine) - New Request Specialty Diagnoses / Procedures Referred By Nader gardiner Referred To Contact Diagnoses ESRD (end stage renal disease) ([facility]) Carlota Jin MD [address] [place] [address], [facility] [address] [place] [address] Phone: tel: fax: [facility] [place] [address] [place] [address] Phone: tel: fax: Referral ID Status Reason Start Date Expiration Date V isits Requested Visits Authorized [id number] New Request 03/17/2024 1 1 Encounter Details Date Type Department Care Team (Latest Contact Info) Description 11/29/2024 6:45 EST Treatment [facility] [address] [place] [phone] Carlota Jin MD [address] [place] [address], [facility] [address] [place] [address] ESRD (end stage renal disease) ([facility]) (Primary Dx); Secondary hyperparathyroidism ([facility]) Social History Tobacco Use Types Packs/Day Years Used Date Smoking Tobacco: Every Day Cigarettes 1 26.1 Started: 1998 Smokeless Tobacco: Never Alcohol Use Standard Drinks/Week Comments Yes 0 (1 standard drink = 0.6 oz pur e alcohol) Socially [facility] Utilities Answer Date Recorded In [...] in a intermediate (including now)? No 05/30/2024 [facility] - Inadequate Housing Answer Date Re corded What is your living situation today? I have a [facility] place to live 11/15/[address] you li ve. Do you have problems with any of the following? None of the above 11/15/2024 [facility] - Transportation Answer Date Record ed In the past 12 months, has l ack of reliable transportation kept you from medical appointments, meetings, work or from getting things needed for daily living? No 11/15/2024 [facility] - Personal Safety Answer Date [...] scream or curse at you? Never 11/15/2024 [facility] - Financial Strain Answer Date Cornel rded How hard is it for you to pa y for the very basics like food, housing, medical care, and heating? Would you say it is: Not hard at all 11/15/2024 [facility] - Employment Answer Date Recorded Do you want help finding or keeping work or a job? I do not need or want help 11/15/2024 [facility] - Social Connections Answer Date Re corded If for any reason you need h elp with day-to-day activities such as bathing, preparing meals, shopping, managing finances, etc., do you get the help you need? I get all the help I need 11/15/2024 How often do you feel lonely or isolated from those around you? Never 11/15/2024 [facility] - Education Answer Date Recorded Do you speak a language other than [facility] at [facility]? No 11/15/2024 Do you want help with school or training? For example, starting or completing job training or getting a high school diploma, GED or equivalent. No 11/15/2024 [facility] - Physical Activity Answer Date [...] living situation today? I have a [facility] place to live 05/30/2024 Think about the [...] the past 12 months has th e [employer], gas, oil, or water company threatened to [...] - Temperature - - Respiratory Rate 16 11/29/2024 0627 EST Oxygen Saturation - - Inhaled Oxygen Concentration - - Weight 81.5 kg (179 lb 10.8 oz) 11/29/2024 0617 EST Height - - Body Mass Index 25.78 07/20/2024 1359 EDT documented in this encounter [...] Flowsheet Note - Marcela Cox RN - 11/29/2024 2995 EST 11/29/24 0919 Post-Hemodialysis Assessment Total Blood Processed (L) 58.01 Liters On Line Clearance: spKt/V 0.96 spKt/V Dialyzer Clearance Lightly streaked Treatment UFR (ml:kg:hr) 12.02 ml:kg:hr Final Critline Profile (%/hr) -4.71 Final Profile Profile B Fluid Removed (L) 2.88 L Post-Dialysis Scale Weight 96.2 kg (212 lb 1.3 oz) Wheelchair Weight 17.2 kg (37 lb 14.7 oz) Prosthesis Weight 0 kg (0 lb) Post-Treatment Weight (kg) 79 Treatment Weight Change (kg) 2.5 kg Day Target Weight (kg) 77.7 Post Sitting/Lying BP 176/61 Post Sitting/Lying pulse 66 Temp 36.2 ??C (97.2 ??F) Temp src Temporal Minutes Short -158 Post access assessment AVF/AFG Hemostasis achieved Yes Note pt held sites for 10 min with blue clamps Orientation Alert and Oriented x3 Yes Time Yes Place Yes Person Yes Cooperative Yes Disoriented No Discharge Ambulation Methods Departs via w/c Wrap up items Patient Response to Treatment Removed 2.8L out of original 4.3L UF goal, unable to remove full goalas pt ended tx 87 min early for c/o extreme left stump pain. Pt requests to end tx AMA to go to [facility] for eval of pain. Comments wheeled up to ED by [facility] for eval of stump pain. documented in this encounter Plan of Treatment Upcoming Encounters Date Type Department Care Team (Late st Contact Info) Description 12/06/2024 6:45 EST Treatment [facility] [address] [place], [place] [phone] Carlota Jin MD 1 [facility] [address] [place] [phone] 12/08/2024 6:45 EST [facility] [address] [place], [place] [phone] Carlota Jin MD [address] [place] [phone] 12/11/2024 6:45 EST Treatment [facility] [address] [place], [place] [phone] Carlota Jin MD [address] [place] [address], [facility] [address] [place] [phone] 12/13/2024 6:45 EST Treatment [facility] [address] [place], [place] [phone] Carlota Jin MD [address] [place] [address] [address] [place] [phone] 12/15/2024 6:45 EST Treatment [facility] [place] [address] [place], [place] [phone] Carlota Jin MD 1 [facility], [facility] [address] [place] [phone] 12/18/2024 6:45 EST Treatment [facility] [place] [address] [place], [place] [phone] Carlota Jin MD 1 [facility], [facility] [address] [place] [phone] 12/20/2024 6:45 EST Treatment [facility] [place] [address] [place], [place] [phone] Carlota Jin MD 1 [facility], [facility] [address] [place] [phone] 12/22/2024 6:45 EST Treatment [facility] [place] [address] [place], [place] [phone] Carlota Jin MD 1 [facility], [facility] [address] [place] [phone] 12/25/2024 6:45 EST Treatment [facility] [place] [address] [place], [place] [phone] Carlota Jin MD 1 [facility], [facility] [address] [place] [phone] 12/27/2024 6:45 EST Treatment [facility] [place] [address] [place], [place] [phone] Carlota Jin MD 1 [facility], [facility] [address] [place] [phone] 12/29/2024 6:45 EST Treatment [facility] [place] [address] [place], [place] [phone] Carlota Jin MD 1 [facility], [facility] [address] [place] [phone] 01/01/2025 6:45 EDT Treatment [facility] [place] [address] [place], [place] [phone] Carlota Jin MD 1 [facility], [address] [phone] 01/03/2025 6:45 EDT Treatment [facility] [place] [address] [place] [address] Carlota Jin MD 1 [facility], [facility] [address] [place] [phone] 01/05/2025 6:45 EDT Treatment [facility] [place] [address] [place], [place] [phone] Carlota Jin MD 1 [facility], [facility] [address] [place] [phone] 01/08/2025 6:45 EDT Treatment [facility] [place] [address] [place], [place] [phone] Carlota Jin MD 1 [facility], [facility] [address] [place] [phone] 01/10/2025 6:45 EDT Treatment [facility] [place] [address] [place], [place] [phone] Carlota Jin MD 1 [facility], [facility] [address] [place] [phone] 01/12/2025 6:45 EDT Treatment [facility] [place] [address] [place], [place] [phone] Carlota Jin MD 1 [facility], [facility] [address] [place] [phone] 01/15/2025 6:45 EDT Treatment [facility] [place] [address] [place] [address] Carlota Jin MD 1 [facility], [address] [phone] 01/17/2025 6:45 EDT Treatment [facility] [place] [address] [place], [place] [phone] Carlota Jin MD 1 [facility], [facility] [address] [place] [phone] 01/19/2025 6:45 EDT Treatment [facility] [place] [address] [place], [place] [phone] Carlota Jin MD 1 [facility], [facility] [address] [place] [phone] 01/22/2025 6:45 EDT Treatment [facility] [place] [address] [place], [place] [phone] Carlota Jin MD 1 [facility], [facility] [address] [place] [phone] 01/24/2025 6:45 EDT Treatment [facility] [place] [address] [place] [address] Carlota Jin MD 1 [facility], [facility] [address] [place] [phone] 01/26/2025 6:45 EDT Treatment [facility] [place] [address] [place] [address] Carlota Jin MD 1 [facility], [facility] [address] [place] [phone] 01/29/2025 6:45 EDT Treatment [facility] [place] [address] [place], [place] [phone] Carlota Jin MD 1 [facility], [facility] [address] [place] [phone] 01/31/2025 6:45 EDT Treatment [facility] [place] [address] [place] [address] Carlota Jin MD 1 [facility], [facility] [address] [place] [phone] 02/02/2025 6:45 EDT Treatment [facility] [place] [address] [place], [place] [phone] Carlota Jin MD 1 [facility], [facility] [address] [place] [phone] 02/05/2025 6:45 EDT Treatment [facility] [place] [address] [place], [place] [phone] Carlota Jin MD 1 [facility], [facility] [address] [place] [phone] 02/07/2025 6:45 EDT Treatment [facility] [place] [address] [place], [place] [phone] Carlota Jin MD 1 [facility], [facility] [address] [place] [phone] 02/09/2025 6:45 EDT Treatment [facility] [address] [place], [place] [phone] Carlota Jin MD 1 [facility], [facility] [address] [place] [phone] 02/12/2025 6:45 EDT Treatment [facility] [address] [place], [place] [address] Carlota Jin MD 1 [facility], [facility] [address] [place] [phone] 02/14/2025 6:45 EDT Treatment [facility] [address] [place], [place] [phone] Carlota Jin MD 1 [facility], [facility] [address] [place] [phone] 02/16/2025 6:45 EDT Treatment [facility] [place] [address] [place], [place] [phone] Carlota Jin MD 1 [facility], [facility] [address] [place] [phone] 02/19/2025 6:45 EDT Treatment [facility] [address] [place], [place] [phone] Carlota Jin MD 1 [facility], [facility] [address] [place] [phone] 02/21/2025 6:45 EDT Treatment [facility] [address] [place], [place] [phone] Carlota Jin MD 1 [facility], [facility] [address] [place] [phone] documented as of this encounter Procedures Procedure Name Priority Date/Time Associated Diagnosis Comments COMPLETE BLOOD COUNT Routine 11/29/2024 6:34 EST ESRD (end stage renal disease) ([facility]) HEMODIALYSIS Routine 11/29/2024 6:27 EST ESRD (end stage renal disease) ([facility]) documented in this encounter Results * (ABNORMAL) COMPLETE BLOOD COUNT (11/29/2024 6:34 EST) WBC 10.96(H) 4.00 - 10.40 K/cmm 11/29/2024 21:30 [facility] RBC 3.60(L) 4.36 - 5.78 M/cmm 11/29/2024 21:30 [facility] Hemoglobin 10.9(L) 13.8 - 17.3 g/dL 11/29/2024 21:30 [facility] HCT 34.1(L) 39.5 - 50.2 % 11/29/2024 21:30 [facility] MCV 95 81 - 95 fL 11/29/2024 21:30 [facility] MCH 30.3 27.6 - 33.0 pg 11/29/2024 21:30 [facility] MCHC 32.0(L) 32.8 - 36.4 g/dL 11/29/2024 21:30 [facility] RDW-CV 16.1(H) <14.2 % 11/29/2024 21:30 [facility] RDW-SD 56.0(H) <46.0 fl 11/29/2024 21:30 [facility] PLT 244 141 - 377 K/cmm 11/29/2024 21:30 [facility] MPV 12.0 9.5 - 12.7 fL 11/29/2024 21:30 [facility] Blood VENOUS BLOOD / Unknown Venipuncture / Unknown 11/29/2024 6:34 EST 11/29/2024 6:34 EST us Carlota Jin MD HEMATOLOGY & PF4 ORDERABL ES Final Result Performing Organization Address City/State/[facility] Co de Phone Number [facility] [address], [place] [phone] documented in this encounter Visit Diagnoses Diagnosis ESRD (end stage renal disease) ([facility])- Primary End stage renal disease Secondary hyperparathyroidism ([facility]) Secondary hyperparathyroidism (of renal origin) documented in this encounter Administered Medications Inactive Administered Medications - up to 3 most recent administrations Medication Order MAR Action Action Date Dose Rate Site amino acids-protein hydrolysate (LiquaCel) 16 gram-100 kcal/30 mL liquid in packet 30 mL 30 mL, oral, ONCE IN DIALYSIS, 1 dose, On Wed11/29/24 at 0645, RoutineIndications:ESRD (end stage renal disease) ([facility]) Given 11/29/2024 6:42 EST 30 mL calcium carbonate (TUMS) tablet 500 mg (200 mg elemental calcium) 2 Tablet 2 Tablet, oral, ONCE IN DIALYSIS, 1 dose, On Wed11/29/24 at 0645, Routine, DialysisIndications:ESRD (end stage renal disease) ([facility]),Secondary hyperparathyroidism ([facility]) Given 11/29/2024 6:42 EST 2 Tablets epoetin ken (EPOGEN) 20,000 unit/2 mL injection 5,000 Units 5,000 Units, intravenous, ONCE IN DIALYSIS, 1 dose, On Wed11/29/24 at 0645, Routine, DialysisIndications:ESRD (end stage renal disease) ([facility]) Given 11/29/2024 6:42 EST 5,000 Units heparin injection 3,000 Units 3,000 Units, intravenous, ONCE IN DIALYSIS, 1 dose, On Wed11/29/24 at 0645, Routine, Dialysis, Now x1 bolus 1500 units to be given at the beginning of dialysis 500 units/hour to be given over the course of dialysis (3000 units total). Stop 1 hour prior to end of treatment. To be administered per Policy [id number].Indications:ESRD (end stage renal disease) ([facility]) Given 11/29/2024 6:42 EST 3,000 Units documented in this encounter Orders Dialysis Count Last Ordered Date First Orde red Date HEMODIALYSIS 1 11/29/2024 documented in this encounter Care Teams Department Head [employer] Or [employer] Relationship Specialty Start Date End Date Ken Greer MD [address] [place] [address] PCP - General 07/07/23 Kiel Powers Student Services Vice President Nephrology 05/31/24 documented as of this encounter
--- OUTSIDE RECORDS SUMMARY | 2024-12-05 11:54 | XMS_ITS | Encounter Summary ---
Author Organization [facility] Address [address] [place] [address] Care Team Providers Care Web Applications Administrator Name Role Phone Ken Greer MD Primary Care Provider [phone] Kiel Powers Unavailable Unavailable Reason for Visit * Episode Based Medications (Routine) - New Request Specialty Diagnoses / Procedures Referred By Nader gardiner Referred To Contact Diagnoses ESRD (end stage renal disease) ([facility]) Carlota Jin MD [address] [place] [address], [facility] 2 [place] [address] Phone: tel: fax: [facility] [place] [address] [place] [address] Phone: tel: fax: Referral ID Status Reason Start Date Expiration Date V isits Requested Visits Authorized [id number] New Request 03/17/2024 1 1 Encounter Details Date Type Department Care Team (Latest Contact Info) Description 11/10/2024 6:45 EST Treatment [facility] [address] [place] [id number] Carlota Jin MD [address] [place] [address], [facility] 2 [place] [address] ESRD (end stage renal disease) ([facility]) (Primary Dx); Hypoalbuminemia; Secondary [facility] Social History Tobacco Use Types Packs/Day Years Used Date Smoking Tobacco: Every Day Cigarettes 1 26.1 Started: 1998 Smokeless Tobacco: Never Alcohol Use Standard Drinks/Week Comments Yes 0 (1 standard drink = 0.6 oz pur e alcohol) Socially [facility] Utilities Answer Date Recorded In the past 12 months has th e electric, gas, oil, or water company threatened to shut off services in your home? No 05/30/2024 PHQ-2 Answer Date Recorded PHQ-2 SUBTOTAL 4 12/03/2023 Hunger Vital Sign Answer Date Recorded Within the past 12 months, y ou worried that your food would run out before you got the money to buy more. Never true 05/30/20 24 Within the past 12 months, t he food you bought just didn't last and you didn't have money to get more. Never true 05/30/2024 PRAPARE - Transportation Answer Date Re corded [...] any time in the past 12 m [facility], were you homeless or living in a usp (including now)? No 05/30/2024 Interpersonal Safety Answer Date Record ed How often does anyone, martin lyons family, hit, punch or physically hurt you? 05/30/2024 How often does anyone, martin lyons family, insult, scream, curse or threaten to hurt you? 05/30/2024 Living Situation Answer Date Recorded What is your living situation today? I have a [facility] place to live 05/30/2024 Think about [...] the past 12 months has th e [employer], gas, oil, or water [employer] threatened to shut off services in your [...] - Temperature - - Respiratory Rate 16 11/10/2024 0618 EST Oxygen Saturation - - Inhaled Oxygen Concentration - - Weight 80.4 kg (177 lb 4 oz) 11/10/2024 0625 EST Height - - Body Mass Index 25.43 07/20/2024 1359 EDT documented in this encounter [...] Flowsheet Note - Marcela Cox RN - 11/10/2024 1133 EST 11/10/24 1051 Post-Hemodialysis Assessment Total Blood Processed (L) 90.82 Liters On Line Clearance: spKt/V 1.48 spKt/V Dialyzer Clearance Lightly streaked Treatment UFR (ml:kg:hr) 13.02 ml:kg:hr Final Critline Profile (%/hr) -0.83 Final Profile Profile A Critline refill Positive Fluid Removed (L) 4.3 L Post-Dialysis Scale Weight 93.3 kg (205 lb 11 oz) Wheelchair Weight 17.1 kg (37 lb 11.2 oz) Prosthesis Weight 0 kg (0 lb) Post-Treatment Weight (kg) 76.2 Treatment Weight Change (kg) 4.2 kg Day Target Weight (kg) 76.6 Post Sitting/Lying BP 192/60 Post Sitting/Lying pulse 64 Temp 36.6 ??C (97.9 ??F) Temp src Temporal Minutes Short -254 Post access assessment AVF/AFG Hemostasis achieved Yes Note 10 min hold Orientation Alert and Oriented x3 Yes Time Yes Place Yes Person Yes Cooperative Yes Disoriented No Discharge Ambulation Methods With patient transport;Departs via w/c Wrap up items Patient Response to Treatment Tolerated tx well. Removed 4.3L UF goal without difficulty. Comments No issues during tx, no concerns voiced post tx. documented in this encounter Plan of Treatment Upcoming Encounters Date Type Department Care Team (Late st Contact Info) Description 12/06/2024 6:45 EST Treatment [facility] [place] [address] [place], [place] [phone] Carlota Jin MD 1 [facility], [facility] 2 [place] [phone] 12/08/2024 6:45 EST Treatment [facility] [address] [place], [place] [phone] Carlota Jin MD 1 [facility], [address] [phone] 12/11/2024 6:45 EST Treatment [facility] [address] [place], [place] [phone] Carlota Jin MD 1 [facility], [address] [phone] 12/13/2024 6:45 EST [facility] [address] [place], [place] [phone] Carlota Jin MD [address] [place] [address], [address] [phone] 12/15/2024 6:45 EST Treatment [facility] [address] [place], [place] [phone] Carlota Jin MD [address] [phone] 12/18/2024 6:45 EST Treatment [facility] [place] [address] [place], [place] [phone] Carlota Jin MD 1 [facility], [facility] 2 [place] [phone] 12/20/2024 6:45 EST Treatment [facility] [place] [address] [place], [place] [phone] Carlota Jin MD 1 [facility], [facility] 2 [place] [phone] 12/22/2024 6:45 EST Treatment [facility] [place] [address] [place], [place] [phone] Carlota Jin MD 1 [facility], [facility] 2 [place] [phone] 12/25/2024 6:45 EST Treatment [facility] [place] [address] [place], [place] [phone] Carlota Jin MD 1 [facility], [facility] 2 [place] [phone] 12/27/2024 6:45 EST Treatment [facility] [place] [address] [place], [place] [phone] Carlota Jin MD 1 [facility], [facility] 2 [place] [phone] 12/29/2024 6:45 EST Treatment [facility] [place] [address] [place], [place] [phone] Carlota Jin MD 1 [facility], [facility] 2 [place] [phone] 01/01/2025 6:45 EDT Treatment [facility] [place] [address] [place], [place] [id number] Carlota Jin MD 1 [facility], [facility] 2 [place] [phone] 01/03/2025 6:45 EDT Treatment [facility] [place] [address] [place] [address] Carlota Jin MD 1 [facility], [facility] 2 [place] [phone] 01/05/2025 6:45 EDT Treatment [facility] [place] [address] [place] [address] Carlota Jin MD 1 [facility], [facility] 2 [place] [phone] 01/08/2025 6:45 EDT Treatment [facility] [place] [address] [place] [address] Carlota Jin MD 1 [facility], [facility] 2 [place] [phone] 01/10/2025 6:45 EDT Treatment [facility] [place] [address] [place], [place] [phone] Carlota Jin MD 1 [facility], [facility] 2 [place] [phone] 01/12/2025 6:45 EDT Treatment [facility] [place] [address] [place], [place] [phone] Carlota Jin MD 1 [facility], [facility] 2 [place] [phone] 01/15/2025 6:45 EDT Treatment [facility] [place] [address] [place], [place] [phone] Carlota Jin MD 1 [facility], [facility] 2 [place] [phone] 01/17/2025 6:45 EDT Treatment [facility] [place] [address] [place] [address] Carlota Jin MD 1 [facility], [address] [phone] 01/19/2025 6:45 EDT Treatment [facility] [place] [address] [place], [place] [phone] Carlota Jin MD 1 [facility], [facility] 2 [place] [phone] 01/22/2025 6:45 EDT Treatment [facility] [place] [address] [place], [place] [phone] Carlota Jin MD 1 [facility], [facility] 2 [place] [phone] 01/24/2025 6:45 EDT Treatment [facility] [place] [address] [place], [place] [phone] Carlota Jin MD 1 [facility], [facility] 2 [place] [phone] 01/26/2025 6:45 EDT Treatment [facility] [place] [address] [place] [address] Carlota Jin MD 1 [facility], [facility] 2 [place] [phone] 01/29/2025 6:45 EDT Treatment [facility] [place] [address] [place] [address] Carlota Jin MD 1 [facility], [facility] 2 [place] [phone] 01/31/2025 6:45 EDT Treatment [facility] [place] [address] [place] [address] Carlota Jin MD 1 [facility], [facility] 2 [place] [phone] 02/02/2025 6:45 EDT Treatment [facility] [place] [address] [place] [address] Carlota Jin MD 1 [facility], [facility] 2 [place] [phone] 02/05/2025 6:45 EDT Treatment [facility] [place] [address] [place], [place] [phone] Carlota Jin MD 1 [facility], [facility] 2 [place] [phone] 02/07/2025 6:45 EDT Treatment [facility] [place] [address] [place], [place] [id number] Carlota Jin MD 1 [facility], [facility] 2 [place] [phone] 02/09/2025 6:45 EDT Treatment [facility] [place] [address] [place] [address] Carlota Jin MD 1 [facility], [facility] 2 [place] [phone] 02/12/2025 6:45 EDT Treatment [facility] [place] [address] [place], [place] [id number] Carlota Jin MD 1 [facility], [facility] 2 [place] [phone] 02/14/2025 6:45 EDT Treatment [facility] [place] [address] [place], [place] [address] Carlota Jin MD 1 [facility], [facility] 2 [place] [phone] 02/16/2025 6:45 EDT Treatment [facility] [place] [address] [place], [place] [phone] Carlota Jin MD 1 [facility], [facility] 2 [place] [phone] 02/19/2025 6:45 EDT Treatment [facility] [place] [address] [place], [place] [phone] Carlota Jin MD 1 [facility], [facility] 2 [place] [phone] 02/21/2025 6:45 EDT Treatment [facility] [address] [place], [place] [phone] Carlota Jin MD 1 [facility], [facility] 2 [place] [phone] documented as of this encounter Procedures Procedure Name Priority Date/Time Associated Diagnosis Comments HEMODIALYSIS Routine 11/10/2024 6:18 EST ESRD (end stage renal disease) ([facility]) documented in this encounter Visit Diagnoses Diagnosis ESRD (end stage renal disease) ([facility])- Primary End stage renal disease Hypoalbuminemia Other disorders of plasma protein metabolism Secondary hyperparathyroidism ([facility]) Secondary hyperparathyroidism (of renal origin) documented in this encounter Administered Medications Inactive Administered Medications - up to 3 most recent administrations Medication Order MAR Action Action Date Dose Rate Site calcium carbonate (TUMS) tablet 500 mg (200 mg elemental calcium) 2 Tablet 2 Tablet, oral, ONCE IN DIALYSIS, 1 dose, On Wed11/10/24 at 0645, Routine, DialysisIndications:ESRD (end stage renal disease) ([facility]),Secondary hyperparathyroidism ([facility]) Given 11/10/2024 6:42 EST 2 Tablets epoetin ken (EPOGEN) 20,000 unit/2 mL injection 5,000 Units 5,000 Units, intravenous, ONCE IN DIALYSIS, 1 dose, On Wed11/10/24 at 0645, Routine, DialysisIndications:ESRD (end stage renal disease) ([facility]) Given 11/10/2024 7:05 EST 5,000 Units heparin injection 3,000 Units 3,000 Units, intravenous, ONCE IN DIALYSIS, 1 dose, On Wed11/10/24 at 0645, Routine, Dialysis, Now x1 bolus 1500 units to be given at the beginning of dialysis 500 units/hour to be given over the course of dialysis (3000 units total). Stop 1 hour prior to end of treatment. To be administered per Policy [id number].Indications:ESRD (end stage renal disease) ([facility]) Given 11/10/2024 6:42 EST 3,000 Units LiquaCel liquid protein liquid 30 mL 30 mL, oral, ONCE IN DIALYSIS, 1 dose, On Wed11/10/24 at 0645, Patient's flavor preference: either, Routine, DialysisIndications:ESRD (end stage renal disease) ([facility]),Hypoalbuminemia Given 11/10/2024 6:42 EST 30 mL documented in this encounter Orders Dialysis Count Last Ordered Date First Orde red Date HEMODIALYSIS 1 11/10/2024 documented in this encounter Care Teams Web Applications Administrator Relationship Specialty Start Date End Date Ken Greer MD [address] [place] [address] PCP - General 07/07/23 Kiel Powers [employer] Nephrology 05/31/24 documented as of this encounter
--- OUTSIDE RECORDS SUMMARY | 2024-12-05 11:54 | XMS_ITS | Encounter Summary ---
Author Organization [facility] Address [address] [place] [address] Care Team Providers Care Lace Stripper Name Role Phone Ken Greer MD Primary Care Provider [phone] Kiel Powers Unavailable Unavailable Encounter Details Date Type Department Care Team (Late st Contact Info) Description 10/31/2024 Documentation Visit [facility] [address] [place] [address] Shelley Eden, RD [address] [place] [address] Social History Tobacco Use Types Packs/Day Years Used Date Smoking Tobacco: Every Day Cigarettes 1 26.1 Started: 1998 Smokeless Tobacco: Never Alcohol Use Standard Drinks/Week Comments Yes 0 (1 standard drink = 0.6 oz pur e alcohol) Socially [facility] Utilities Answer Date Recorded In the past 12 months has e [employer], gas, oil, or water [employer] threatened to shut off services in your [...] any time in the past 12 m [facility], were you homeless or living in a intermediate (including now)? No 05/30/2024 Interpersonal Safety Answer Date Record ed How often does anyone, martin lyons family, hit, punch or physically hurt you? 05/30/2024 How often does anyone, martin lyons family, insult, scream, curse or threaten to hurt you? 05/30/2024 Living Situation Answer Date Recorded What is your living situation today? I have a [facility] place to live 05/30/2024 Think about [...] the past 12 months has th e [employer], gas, oil, or water [employer] threatened to shut off services in your [...] Description 12/06/2024 6:45 EST Treatment [facility] [place] [address] [place] [phone] Carlota Jin MD 1 [facility], Level [address] [place] [address] 12/08/2024 6:45 EST Treatment [facility] [place] [address] [place], [place] [phone] Carlota Jin MD 1 [facility], [facility] 2 [place] [phone] 12/11/2024 6:45 EST Treatment [facility] [place] [address] [place], [place] [phone] Carlota Jin MD 1 [facility], [facility] 2 [place] [phone] 12/13/2024 6:45 EST Treatment [facility] [place] [address] [place] [address] Carlota Jin MD 1 [facility], [address] [phone] 12/15/2024 6:45 EST Treatment [facility] [place] [address] [place], [place] [phone] Carlota Jin MD 1 [facility], [address] [phone] 12/18/2024 6:45 EST Treatment [facility] [place] [address] [place] [address] Carlota Jin MD 1 [facility], [facility] 2 [place] [phone] 12/20/2024 6:45 EST Treatment [facility] [place] [address] [place], [place] [phone] Carlota Jin MD 1 [facility], [facility] 2 [place] [phone] 12/22/2024 6:45 EST Treatment [facility] [place] [address] [place], [place] [phone] Carlota Jin MD 1 [facility], [facility] 2 [place] [phone] 12/25/2024 6:45 EST Treatment [facility] [place] [address] [place], [place] [phone] Carlota Jin MD 1 [facility], [facility] 2 [place] [phone] 12/27/2024 6:45 EST Treatment [facility] [place] [address] [place], [place] [phone] Carlota Jin MD 1 [facility], [facility] 2 [place] [phone] 12/29/2024 6:45 EST Treatment [facility] [place] [address] [place], [place] [address] Carlota Jin MD 1 [facility], [facility] 2 [place] [phone] 01/01/2025 6:45 EDT Treatment [facility] [place] [address] [place], [place] [phone] Carlota Jin MD 1 [facility], [facility] 2 [place] [phone] 01/03/2025 6:45 EDT Treatment [facility] [place] [address] [place], [place] [phone] Carlota Jin MD 1 [facility], [facility] 2 [place] [phone] 01/05/2025 6:45 EDT Treatment [facility] [place] [address] [place] [address] Carlota Jin MD 1 [facility], [address] [phone] 01/08/2025 6:45 EDT Treatment [facility] [place] [address] [place], [place] [phone] Carlota Jin MD 1 [facility], [address] [phone] 01/10/2025 6:45 EDT Treatment [facility] [place] [address] [place], [place] [id number] Carlota Jin MD 1 [facility], [address] [phone] 01/12/2025 6:45 EDT Treatment [facility] [place] [address] [place], [place] [phone] Carlota Jin MD 1 [facility], [facility] 2 [place] [phone] 01/15/2025 6:45 EDT Treatment [facility] [place] [address] [place], [place] [id number] Carlota Jin MD 1 [facility], [facility] 2 [place] [phone] 01/17/2025 6:45 EDT Treatment [facility] [place] [address] [place], [place] [phone] Carlota Jin MD 1 [facility], [facility] 2 [place] [phone] 01/19/2025 6:45 EDT Treatment [facility] [place] [address] [place], [place] [phone] Carlota Jin MD 1 [facility], [facility] 2 [place] [phone] 01/22/2025 6:45 EDT Treatment [facility] [place] [address] [place] [address] Carlota Jin MD 1 [facility], [address] [phone] 01/24/2025 6:45 EDT Treatment [facility] [place] [address] [place], [place] [phone] Carlota Jin MD 1 [facility], [facility] 2 [place] [phone] 01/26/2025 6:45 EDT Treatment [facility] [place] [address] [place], [place] [phone] Carlota Jin MD 1 [facility], [facility] 2 [place] [phone] 01/29/2025 6:45 EDT Treatment [facility] [place] [address] [place], [place] [address] Carlota Jin MD 1 [facility], [facility] 2 [place] [phone] 01/31/2025 6:45 EDT Treatment [facility] [place] [address] [place], [place] [phone] Carlota Jin MD 1 [facility], [facility] 2 [place] [phone] 02/02/2025 6:45 EDT Treatment [facility] [place] [address] [place], [place] [phone] Carlota Jin MD 1 [facility], [address] [phone] 02/05/2025 6:45 EDT Treatment [facility] [place] [address] [place], [place] [phone] Carlota Jin MD [address] [phone] 02/07/2025 6:45 EDT Treatment [facility] [place] [address] [place], [place] [phone] Carlota Jin MD [address] [phone] 02/09/2025 6:45 EDT Treatment [facility] [place] [address] [place], [place] [phone] Carlota Jin MD 1 [facility] 2 [place] [phone] 02/12/2025 6:45 EDT Treatment [facility] [place] [address] [place], [place] [phone] Carlota Jin MD 1 [facility], [facility] 2 [place] [phone] 02/14/2025 6:45 EDT Treatment [facility] [place] [address] [place], [place] [phone] Carlota Jin MD 1 [facility], [facility] 2 [place] [phone] 02/16/2025 6:45 EDT Treatment [facility] [place] [address] [place], [place] [phone] Carlota Jin MD 1 [facility], [facility] 2 [place] [phone] 02/19/2025 6:45 EDT Treatment [facility] [place] [address] [place], [place] [phone] Carlota Jin MD 1 [facility], [facility] 2 [place] [phone] 02/21/2025 6:45 EDT Treatment [facility] [place] [address] [place], [place] [phone] Carlota Jin MD 1 [facility], [facility] 2 [place] [phone] documented as of this encounter Visit Diagnoses Not on filedocumented in this encounter Care Teams Lace Stripper Relationship Specialty Start Date End Date Ken Greer MD [facility] [place] [address] PCP - General 07/07/23 Kiel Powers Clinic Administrator Nephrology 05/31/24 documented as of this encounter
--- OUTSIDE RECORDS SUMMARY | 2024-12-05 11:54 | XMS_ITS | Encounter Summary ---
Author Organization [facility] Address [address] [place] [address] Care Team Providers Care Semi Conductor Assembler Name Role Phone Ken Greer MD Primary Care Provider [phone] Kiel Powers Unavailable Unavailable Reason for Visit * Episode Based Medications (Routine) - New Request Specialty Diagnoses / Procedures Referred By Nader gardiner Referred To Contact Diagnoses ESRD (end stage renal disease) ([facility]) Carlota Jin MD [address] [place] [address], [facility] [address] [place] [address] Phone: tel: fax: [facility] [place] [address] [place] [address] Phone: tel: fax: Referral ID Status Reason Start Date Expiration Date V isits Requested Visits Authorized [id number] New Request 03/17/2024 1 1 Encounter Details Date Type Department Care Team (Latest Contact Info) Description 11/03/2024 6:45 EST Treatment [facility] [address] [place] [id number] Carlota Jin MD [address] [place] [address], [facility] [address] [place] [phone] ESRD (end stage renal disease) ([facility]) (Primary Dx); Hypoalbuminemia; Secondary hyperparathyroidism [facility] Social History Tobacco Use Types Packs/Day Years Used Date Smoking Tobacco: Every Day Cigarettes 1 26.1 Started: 1998 Smokeless Tobacco: Never Alcohol Use Standard Drinks/Week Comments Yes 0 (1 standard drink = 0.6 oz pur e alcohol) Socially [facility] Utilities Answer Date Recorded In the [...] any time in the past 12 m [facility], were you homeless or living in a skilled nursing (including now)? No 05/30/2024 Interpersonal Safety Answer [...] the past 12 months has th e [employer], gas, oil, or water [employer] threatened to shut off services in your [...] - Temperature - - Respiratory Rate 16 11/03/2024 0620 EST Oxygen Saturation - - Inhaled Oxygen Concentration - - Weight 80.6 kg (177 lb 11.1 oz) 11/03/2024 0629 EST Height - - Body Mass Index 25.5 07/20/2024 1359 EDT documented in this encounter [...] Progress Notes * Marcela Cox RN - 11/03/2024 0645 EST Pre tx BS per Freestyle Maris- 56 (cranberry juice given) 15 min repeat BS per Freestyle Maris - 143, no intervention needed (5 min later Maris beeping low BS of 60s, BS check done via our BS monitor reading 152, called to make her aware of difference and to look into skewed readings on Maris system) 45 min repeat BS - 135 no intervention needed Mid tx BS check- 116 no intervention needed Post tx BS check 128 no intervention needed documented in this encounter Miscellaneous Notes * Flowsheet Note - Marcela Cox RN - 11/03/2024 1123 EST 11/03/24 1044 Post-Hemodialysis Assessment Total Blood Processed (L) 90.71 Liters On Line Clearance: spKt/V 1.49 spKt/V Dialyzer Clearance Lightly streaked Treatment UFR (ml:kg:hr) 12.61 ml:kg:hr Critline refill Not done Fluid Removed (L) 4.3 L Post-Dialysis Scale Weight 93.8 kg (206 lb 12.7 oz) Wheelchair Weight 17.1 kg (37 lb 11.2 oz) Prosthesis Weight 0 kg (0 lb) Post-Treatment Weight (kg) 76.7 Treatment Weight Change (kg) 3.9 kg Day Target Weight (kg) 76.8 Post Sitting/Lying BP (!) 186/107 Post Sitting/Lying pulse 58 Temp 36.3 ??C (97.3 ??F) Temp src Temporal Minutes Short -242 Post access assessment AVF/AFG Hemostasis achieved Yes Note 10 minute hold with blue clamps Orientation Alert and Oriented x3 Yes Time Yes Place Yes Person Yes Cooperative Yes Disoriented No Discharge Ambulation Methods Departs via w/c Wrap up items Patient Response to Treatment Tolerated tx well. Removed 4.3L UF goal without difficulty. Comments see alternate RN note for BS readings during tx documented in this encounter Plan of Treatment Upcoming Encounters Date Type Department Care Team (Late st Contact Info) Description 12/06/2024 6:45 EST Treatment [facility] [address] [place], [place] [phone] Carlota Jin MD [address] [place] [phone] 12/08/2024 6:45 EST Treatment [facility] [address] [place], [place] [phone] Carlota Jin MD [address] [place] [address], [facility] [address] [place] [phone] 12/11/2024 6:45 EST Treatment [facility] [address] [place] [address] Carlota Jin MD [address] [place] [address] [address] [place] [phone] 12/13/2024 6:45 EST Treatment [facility] [address] [place] [address] Carlota Jin MD 1 [facility], [facility] [address] [place] [phone] 12/15/2024 6:45 EST Treatment [facility] [place] [address] [place], [place] [phone] Carlota Jin MD 1 [facility], [facility] [address] [place] [phone] 12/18/2024 6:45 EST Treatment [facility] [place] [address] [place] [address] Carlota Jin MD 1 [facility], [address] [phone] 12/20/2024 6:45 EST Treatment [facility] [place] [address] [place], [place] [phone] Carlota Jin MD 1 [facility], [address] [phone] 12/22/2024 6:45 EST Treatment [facility] [place] [address] [place] [address] Carlota Jin MD 1 [facility], [facility] [address] [place] [phone] 12/25/2024 6:45 EST Treatment [facility] [place] [address] [place], [place] [phone] Carlota Jin MD 1 [facility], [facility] [address] [place] [phone] 12/27/2024 6:45 EST Treatment [facility] [place] [address] [place], [place] [phone] Carlota Jin MD 1 [facility], [facility] [address] [place] [phone] 12/29/2024 6:45 EST Treatment [facility] [place] [address] [place], [place] [phone] Carlota Jin MD 1 [facility], [facility] [address] [place] [phone] 01/01/2025 6:45 EDT Treatment [facility] [place] [address] [place], [place] [phone] Carlota Jin MD 1 [facility], [facility] [address] [place] [phone] 01/03/2025 6:45 EDT Treatment [facility] [place] [address] [place], [place] [phone] Carlota Jin MD 1 [facility], [facility] [address] [place] [phone] 01/05/2025 6:45 EDT Treatment [facility] [place] [address] [place], [place] [phone] Carlota Jin MD 1 [facility], [facility] [address] [place] [phone] 01/08/2025 6:45 EDT Treatment [facility] [place] [address] [place], [place] [phone] Carlota Jin MD 1 [facility], [facility] [address] [place] [phone] 01/10/2025 6:45 EDT Treatment [facility] [place] [address] [place], [place] [id number] Carlota Jin MD 1 [facility], [address] [phone] 01/12/2025 6:45 EDT Treatment [facility] [place] [address] [place], [place] [phone] Carlota Jin MD 1 [facility], [address] [phone] 01/15/2025 6:45 EDT Treatment [facility] [place] [address] [place], [place] [phone] Carlota Jin MD 1 [facility], [address] [phone] 01/17/2025 6:45 EDT Treatment [facility] [place] [address] [place], [place] [id number] Carlota Jin MD 1 [facility], [facility] [address] [place] [phone] 01/19/2025 6:45 EDT Treatment [facility] [place] [address] [place], [place] [phone] Carlota Jin MD 1 [facility], [facility] [address] [place] [phone] 01/22/2025 6:45 EDT Treatment [facility] [place] [address] [place], [place] [phone] Carlota Jin MD 1 [facility], [facility] [address] [place] [phone] 01/24/2025 6:45 EDT Treatment [facility] [place] [address] [place], [place] [phone] Carlota Jin MD 1 [facility], [facility] [address] [place] [phone] 01/26/2025 6:45 EDT Treatment [facility] [place] [address] [place] [address] Carlota Jin MD 1 [facility], [address] [phone] 01/29/2025 6:45 EDT Treatment [facility] [place] [address] [place], [place] [phone] Carlota Jin MD 1 [facility], [facility] [address] [place] [phone] 01/31/2025 6:45 EDT Treatment [facility] [place] [address] [place], [place] [id number] Carlota Jin MD 1 [facility], [facility] [address] [place] [phone] 02/02/2025 6:45 EDT Treatment [facility] [place] [address] [place], [place] [phone] Carlota Jin MD 1 [facility], [facility] [address] [place] [phone] 02/05/2025 6:45 EDT Treatment [facility] [place] [address] [place], [place] [phone] Carlota Jin MD 1 [facility], [facility] [address] [place] [phone] 02/07/2025 6:45 EDT Treatment [facility] [place] [address] [place] [address] Carlota Jin MD 1 [facility], [address] [phone] 02/09/2025 6:45 EDT Treatment [facility] [place] [address] [place], [place] [id number] Carlota Jin MD [address] [phone] 02/12/2025 6:45 EDT Treatment [facility] [place] [address] [place], [place] [phone] Carlota Jin MD [address] [phone] 02/14/2025 6:45 EDT Treatment [facility] [place] [address] [place], [place] [phone] Carlota Jin MD 1 [facility] [address] [place] [phone] 02/16/2025 6:45 EDT Treatment [facility] [place] [address] [place], [place] [phone] Carlota Jin MD 1 [facility], [facility] [address] [place] [phone] 02/19/2025 6:45 EDT Treatment [facility] [place] [address] [place], [place] [id number] Carlota Jin MD 1 [facility], [facility] [address] [place] [phone] 02/21/2025 6:45 EDT Treatment [facility] [place] [address] [place] [phone] Carlota Jin MD 1 [facility], [facility] [address] [place] [phone] documented as of this encounter Procedures Procedure Name Priority Date/Time Associated Diagnosis Comments POCT GLUCOSE, INTERFACED Routine 11/03/2024 10:33 EST HEMODIALYSIS Routine 11/03/2024 6:20 EST ESRD (end stage renal disease) ([facility]) documented in this encounter Results * (ABNORMAL) POCT GLUCOSE, INTERFACED (11/03/2024 10:33 EST) Glucose, POC 128(H) 70 - 100 mg/dL 11/03/2024 10:34 EST [facility] HN LAB POC COMMENT (GLUCOSE) Test Performed by Nursing Services 11/03/2024 10:34 EST [facility] Blood CAPILLARY BLOOD / Unknown 11/03/2024 10:33 EST 11/03/2024 10:34 EST us Carlota Jin MD POINT OF CARE TEST ORDERA BLES Final Result [facility] [address] [place], [place] [phone] documented in this encounter Visit Diagnoses Diagnosis ESRD (end stage renal disease) ([facility])- Primary End stage renal disease Hypoalbuminemia Other disorders of plasma protein metabolism Secondary hyperparathyroidism ([facility]) Secondary hyperparathyroidism (of renal origin) documented in this encounter Administered Medications Inactive Administered Medications - up to 3 most recent administrations Medication Order MAR Action Action Date Dose Rate Site calcium carbonate (TUMS) tablet 500 mg (200 mg elemental calcium) 2 Tablet 2 Tablet, oral, ONCE IN DIALYSIS, 1 dose, On Wed11/03/24 at 0645, Routine, DialysisIndications:ESRD (end stage renal disease) ([facility]),Secondary hyperparathyroidism ([facility]) Given 11/03/2024 6:36 EST 2 Tablets epoetin ken (EPOGEN) 20,000 unit/2 mL injection 5,000 Units 5,000 Units, intravenous, ONCE IN DIALYSIS, 1 dose, On Wed11/03/24 at 0645, Routine, DialysisIndications:ESRD (end stage renal disease) ([facility]) Given 11/03/2024 7:19 EST 5,000 Units heparin injection 3,000 Units 3,000 Units, intravenous, ONCE IN DIALYSIS, 1 dose, On Wed11/03/24 at 0645, Routine, Dialysis, Now x1 bolus 1500 units to be given at the beginning of dialysis 500 units/hour to be given over the course of dialysis (3000 units total). Stop 1 hour prior to end of treatment. To be administered per Policy [id number].Indications:ESRD (end stage renal disease) ([facility]) Given 11/03/2024 6:45 EST 3,000 Units iron sucrose (VENOFER) injection 200 mg 200 mg, intravenous, ONCE IN DIALYSIS, 1 dose, On Wed11/03/24 at 0645, Routine, DialysisIndications:ESRD (end stage renal disease) ([facility]) Given 11/03/2024 6:46 EST 200 mg LiquaCel liquid protein liquid 30 mL 30 mL, oral, ONCE IN DIALYSIS, 1 dose, On Wed11/03/24 at 0645, Patient's flavor preference: either, Routine, DialysisIndications:ESRD (end stage renal disease) ([facility]),Hypoalbuminemia Given 11/03/2024 6:36 EST 30 mL documented in this encounter Orders Dialysis Count Last Ordered Date First Orde red Date HEMODIALYSIS 1 11/03/2024 documented in this encounter Care Teams Semi Conductor Assembler Relationship Specialty Start Date End Date Ken Greer MD [address] [place] [address] PCP - General 07/07/23 Kiel Powers Violin Repairer Nephrology 05/31/24 documented as of this encounter
--- OUTSIDE RECORDS SUMMARY | 2024-12-05 11:54 | XMS_ITS | Encounter Summary ---
Author Organization [facility] Address [address] [place] [address] Care Team Providers Care Lumber Estimator Name Role Phone Ken Greer MD Primary Care Provider [phone] Kiel Powers Unavailable Unavailable Reason for Visit * Episode Based Medications (Routine) - New Request Specialty Diagnoses / Procedures Referred By Nader gardiner Referred To Contact Diagnoses ESRD (end stage renal disease) ([facility]) Carlota Jin MD [address] [place] [address], [facility] [address] [place] [address] Phone: tel: fax: [facility] [place] [address] [place] [address] Phone: tel: fax: Referral ID Status Reason Start Date Expiration Date V isits Requested Visits Authorized [id number] New Request 03/17/2024 1 1 Encounter Details Date Type Department Care Team (Latest Contact Info) Description 11/06/2024 6:45 EST Treatment [facility] [address] [place] [id number] Carlota Jin MD [address] [place] [address], [facility] [address] [place] [address] ESRD (end stage renal disease) ([facility]) (Primary Dx); Hypoalbuminemia; Secondary hyperparathyroidism ([facility]) Social History Tobacco Use Types Packs/Day Years Used Date Smoking Tobacco: Every Day Cigarettes 1 26.1 Started: 1998 Smokeless Tobacco: Never Alcohol Use Standard Drinks/Week Comments Yes 0 (1 standard drink = 0.6 oz pur e alcohol) Socially [facility] Utilities Answer Date Recorded In the past [...] any time in the past 12 [facility], were you homeless or living in a care home (including now)? No 05/30/2024 Interpersonal Safety Answer [...] the past 12 months has th e Butter, gas, oil, or water [employer] threatened to shut off services in your [...] - Temperature - - Respiratory Rate 16 11/06/2024 0622 EST Oxygen Saturation - - Inhaled Oxygen Concentration - - Weight 81 kg (178 lb 9.2 oz) 11/06/2024 0622 EST Height - - Body Mass Index 25.62 07/20/2024 1359 EDT documented in this encounter [...] Daria Baca RN documented in this encounter Ordered Prescriptions Prescription Sig Dispense Quantity Refills Last Filled Start Date End Date sodium zirconium cyclosilicate (LOKELMA) 10 gram powder in packet Take 10 g by mouth daily. 30 Packet 11 11/06/2024 documented in this encounter Miscellaneous Notes * Flowsheet Note - Marcela Cox RN - 11/06/2024 1248 EST 11/06/24 1047 Post-Hemodialysis Assessment Total Blood Processed (L) 90.62 Liters On Line Clearance: spKt/V 1.53 spKt/V Dialyzer Clearance Lightly streaked Treatment UFR (ml:kg:hr) 13.96 ml:kg:hr Final Critline Profile (%/hr) -1.64 Final Profile Profile A Critline refill Negative (34.6/34.2) Fluid Removed (L) 4.3 L Post-Dialysis Scale Weight 93.9 kg (207 lb 0.2 oz) Wheelchair Weight 17.2 kg (37 lb 14.7 oz) Prosthesis Weight 0 kg (0 lb) Post-Treatment Weight (kg) 76.7 Treatment Weight Change (kg) 4.3 kg Day Target Weight (kg) 77.2 Post Sitting/Lying BP 154/63 Post Sitting/Lying pulse 65 Temp 36.5 ??C (97.7 ??F) Temp src Temporal Minutes Short -241 [...] during tx, no concerns voiced post tx. * Dialysis Rounding - Carlota Jin MD - 11/06/2024 0676 EST TELEMEDICINE VIDEO VISIT Today's visit was provided through telemedicine video conferencing: I have reviewed the appropriateness of using video technology with the patient with regards to today's visit. The location of the patient : Not at home (another medical/non-medical, personal spaces outside [facility]) The location of the provider: Office The following people and their roles were present for today's visit: Appointment Provider: MD Gerson Valdivia RN Alison F Fitzgerald, MD Dialysis Provider's Routine Assessment Gersonharish Kimaleks was seen and examined as appropriate during Dialysis. Pertinent lab results were reviewed. Changes since last visit: I adjusted his insulin to 10 units BID Changes to current prescriptions/orders: None Blood sugars improved with change to insulin regimen in that he has not had low readings at dialysis. I will need to check his log when I am there in person to make sure he is not having significant hyperglycemia. K remains very elevated. He is unable to discuss potential reasons. I will try to re-prescribe Lokelma and see if his insurance covers it now. Carlota Jin MD The concept of ???Telemedicine?? has been [...] Contact Info) Description 12/06/2024 6:45 EST Treatment [facility] [place] [address] [place], [place] [id number] Carlota Jin MD 1 [facility], [facility] [address] [place] [phone] 12/08/2024 6:45 EST Treatment [facility] [place] [address] [place], [place] [id number] Carlota Jin MD 1 [facility], [address] [phone] 12/11/2024 6:45 EST Treatment [facility] [place] [address] [place], [place] [id number] Carlota Jin MD 1 [facility], [address] [phone] 12/13/2024 6:45 EST Treatment [facility] [place] [address] [place], [place] [id number] Carlota Jin MD 1 [facility], [address] [phone] 12/15/2024 6:45 EST Treatment [facility] [place] [address] [place], [place] [id number] Carlota Jin MD 1 [facility], [address] [phone] 12/18/2024 6:45 EST Treatment [facility] [place] [address] [place], [place] [id number] Carlota Jin MD 1 [facility], [facility] [address] [place] [phone] 12/20/2024 6:45 EST Treatment [facility] [place] [address] [place], [place] [id number] Carlota Jin MD 1 [facility], [facility] [address] [place] [phone] 12/22/2024 6:45 EST Treatment [facility] [place] [address] [place], [place] [id number] Carlota Jin MD 1 [facility], [facility] [address] [place] [phone] 12/25/2024 6:45 EST Treatment [facility] [place] [address] [place], [place] [id number] Carlota Jin MD 1 [facility], [facility] [address] [place] [phone] 12/27/2024 6:45 EST Treatment [facility] [place] [address] [place], [place] [id number] Carlota Jin MD 1 [facility], [facility] [address] [place] [phone] 12/29/2024 6:45 EST Treatment [facility] [place] [address] [place], [place] [id number] Carlota Jin MD 1 [facility], [facility] [address] [place] [phone] 01/01/2025 6:45 EDT Treatment [facility] [place] [address] [place], [place] [address] Carlota Jin MD 1 [facility], [facility] [address] [place] [phone] 01/03/2025 6:45 EDT Treatment [facility] [address] [place], [place] [id number] Carlota Jin MD 1 [facility], [facility] [address] [place] [phone] 01/05/2025 6:45 EDT Treatment [facility] [place] [address] [place] [address] Carlota Jin MD 1 [facility], [facility] [address] [place] [phone] 01/08/2025 6:45 EDT Treatment [facility] [address] [place], [place] [id number] Carlota Jin MD 1 [facility], [facility] [address] [place] [phone] 01/10/2025 6:45 EDT Treatment [facility] [address] [place], [place] [id number] Carlota Jin MD 1 [facility], [facility] [address] [place] [phone] 01/12/2025 6:45 EDT Treatment [facility] [place] [address] [place], [place] [id number] Carlota Jin MD 1 [facility], [facility] [address] [place] [phone] 01/15/2025 6:45 EDT Treatment [facility] [place] [address] [place], [place] [id number] Carlota Jin MD 1 [facility], [facility] [address] [place] [phone] 01/17/2025 6:45 EDT Treatment [facility] [place] [address] [place], [place] [id number] Carlota Jin MD [address] [place] [address], [facility] [address] [place] [phone] 01/19/2025 6:45 EDT Treatment [facility] [place] [address] [place], [place] [id number] Carlota Jin MD 1 [facility], [facility] [address] [place] [phone] 01/22/2025 6:45 EDT Treatment [facility] [place] [address] [place], [place] [id number] Carlota Jin MD 1 [facility], [facility] [address] [place] [phone] 01/24/2025 6:45 EDT Treatment [facility] [place] [address] [place], [place] [phone] Carlota Jin MD 1 [facility], [facility] [address] [place] [phone] 01/26/2025 6:45 EDT Treatment [facility] [place] [address] [place], [place] [id number] Carlota Jin MD 1 [facility], [facility] [address] [place] [phone] 01/29/2025 6:45 EDT Treatment [facility] [place] [address] [place] [address] Carlota Jin MD 1 [facility], [address] [phone] 01/31/2025 6:45 EDT Treatment [facility] [place] [address] [place], [place] [id number] Carlota Jin MD 1 [facility], [address] [phone] 02/02/2025 6:45 EDT Treatment [facility] [place] [address] [place] [address] Carlota Jin MD 1 [facility], [facility] [address] [place] [phone] 02/05/2025 6:45 EDT Treatment [facility] [place] [address] [place], [place] [id number] Carlota Jin MD 1 [facility], [facility] [address] [place] [phone] 02/07/2025 6:45 EDT Treatment [facility] [place] [address] [place], [place] [address] Carlota Jin MD 1 [facility], [facility] [address] [place] [phone] 02/09/2025 6:45 EDT Treatment [facility] [place] [address] [place], [place] [id number] Carlota Jin MD 1 [facility], [facility] [address] [place] [phone] 02/12/2025 6:45 EDT Treatment [facility] [place] [address] [place], [place] [address] Carlota Jin MD 1 [facility], [address] [phone] 02/14/2025 6:45 EDT Treatment [facility] [place] [address] [place], [place] [address] Carlota Jin MD 1 [facility], [facility] [address] [place] [phone] 02/16/2025 6:45 EDT Treatment [facility] [place] [address] [place], [place] [id number] Carlota Jin MD 1 [facility], [facility] [address] [place] [phone] 02/19/2025 6:45 EDT Treatment [facility] [place] [address] [place], [place] [address] Carlota Jin MD 1 [facility], [facility] [address] [place] [phone] 02/21/2025 6:45 EDT Treatment [facility] [address] [place], [place] [id number] Carlota Jin MD 1 [facility], [facility] [address] [place] [phone] documented as of this encounter Procedures Procedure Name Priority Date/Time Associated Diagnosis Comments HEMODIALYSIS Routine 11/06/2024 6:22 EST ESRD (end stage renal disease) ([facility]) documented in this encounter Visit Diagnoses Diagnosis ESRD (end stage renal disease) ([facility])- Primary End stage renal disease Hypoalbuminemia Other disorders of plasma protein metabolism Secondary hyperparathyroidism ([facility]) Secondary hyperparathyroidism (of renal origin) documented in this encounter Administered Medications Inactive Administered Medications - up to 3 most recent administrations Medication Order MAR Action Action Date Dose Rate Site calcium carbonate (TUMS) tablet 500 mg (200 mg elemental calcium) 2 Tablet 2 Tablet, oral, ONCE IN DIALYSIS, 1 dose, On Wed11/06/24 at 0645, Routine, DialysisIndications:ESRD (end stage renal disease) ([facility]),Secondary hyperparathyroidism ([facility]) Given 11/06/2024 6:51 EST 2 Tablets epoetin ken (EPOGEN) 20,000 unit/2 mL injection 5,000 Units 5,000 Units, intravenous, ONCE IN DIALYSIS, 1 dose, On Wed11/06/24 at 0645, Routine, DialysisIndications:ESRD (end stage renal disease) ([facility]) Given 11/06/2024 6:51 EST 5,000 Units heparin injection 3,000 Units 3,000 Units, intravenous, ONCE IN DIALYSIS, 1 dose, On Wed11/06/24 at 0645, Routine, Dialysis, Now x1 bolus 1500 units to be given at the beginning of dialysis 500 units/hour to be given over the course of dialysis (3000 units total). Stop 1 hour prior to end of treatment. To be administered per Policy [id number].Indications:ESRD (end stage renal disease) ([facility]) Given 11/06/2024 6:51 EST 3,000 Units iron sucrose (VENOFER) injection 200 mg 200 mg, intravenous, ONCE IN DIALYSIS, 1 dose, On Wed11/06/24 at 0645, Routine, DialysisIndications:ESRD (end stage renal disease) ([facility]) Given 11/06/2024 6:51 EST 200 mg LiquaCel liquid protein liquid 30 mL 30 mL, oral, ONCE IN DIALYSIS, 1 dose, On Wed11/06/24 at 0645, Patient's flavor preference: either, Routine, DialysisIndications:ESRD (end stage renal disease) ([facility]),Hypoalbuminemia Given 11/06/2024 6:51 EST 30 mL documented in this encounter Discontinued Medications Medication Sig Discontinue Reason Start Date End Da te sodium polystyrene (KAYEXALATE) powder Take 15 g by mouth daily. Alternate therapy 08/07/2024 11/06/2024 documented as of this encounter Orders Dialysis Count Last Ordered Date First Orde red Date HEMODIALYSIS 1 11/06/2024 documented in this encounter Care Teams Lumber Estimator Relationship Specialty Start Date End Date Ken Greer MD [facility] [place] [address] PCP - General 07/07/23 Kiel Powers Speedboat Operator Nephrology 05/31/24 documented as of this encounter
--- OUTSIDE RECORDS SUMMARY | 2024-12-05 11:54 | XMS_ITS | Encounter Summary ---
Author Organization [facility] Address [address] [place] [address] Care Team Providers Care Broadcast News Producer Name Role Phone Ken Greer MD Primary Care Provider [phone] Kiel Powers Unavailable Unavailable Reason for Visit * Episode Based Medications (Routine) - New Request Specialty Diagnoses / Procedures Referred By Nader gardiner Referred To Contact Diagnoses ESRD (end stage renal disease) ([facility]) Carlota Jin MD [address] [place] [address], [facility] [address] [place] [address] Phone: tel: fax: [facility] [place] [address] [place] [address] Phone: tel: fax: Referral ID Status Reason Start Date Expiration Date V isits Requested Visits Authorized [id number] New Request 03/17/2024 1 1 Encounter Details Date Type Department Care Team (Latest Contact Info) Description 11/13/2024 6:45 EST Treatment [facility] [address] [place] [phone] Carlota Jin MD [address] [place] [address], [facility] [address] [place] [address] ESRD (end stage renal disease) ([facility]) (Primary Dx); Hypoalbuminemia; Secondary hyperparathyroidism ([facility] Social History Tobacco Use Types Packs/Day Years Used Date Smoking Tobacco: Every Day Cigarettes 1 26.1 Started: 1998 Smokeless Tobacco: Never Alcohol Use Standard Drinks/Week Comments Yes 0 (1 standard drink = 0.6 oz pur e alcohol) Socially [facility] Utilities Answer Date Recorded In the [...] any time in the past 12 m [place], were you homeless or living in a residential (including now)? No 05/30/2024 Interpersonal Safety Answer [...] the past 12 months has th e [employer], gas, oil, or water [employer] threatened to shut off services in your [...] - Temperature - - Respiratory Rate 16 11/13/2024 0620 EST Oxygen Saturation - - Inhaled Oxygen Concentration - - Weight 81.8 kg (180 lb 5.4 oz) 11/13/[address] Height - - Body Mass Index 25.88 07/20/2024 1359 EDT documented in this encounter [...] Flowsheet Note - Marcela Cox RN - 11/13/2024 1120 EST 11/13/24 1040 Post-Hemodialysis Assessment Total Blood Processed (L) 90.12 Liters On Line Clearance: spKt/V 1.57 spKt/V Dialyzer Clearance Lightly streaked Treatment UFR (ml:kg:hr) 13.42 ml:kg:hr Critline refill Not done Fluid Removed (L) 4.3 L Post-Dialysis Scale Weight 94.8 kg (208 lb 15.9 oz) Wheelchair Weight 17.2 kg (37 lb 14.7 oz) Prosthesis Weight 0 kg (0 lb) Post-Treatment Weight (kg) 77.6 Treatment Weight Change (kg) 4.2 kg Day Target Weight (kg) 78 Post Sitting/Lying BP 114/87 Post Sitting/Lying pulse 63 Temp 36.8 ??C (98.2 ??F) Temp src Temporal Minutes Short -242 Post access assessment AVF/AFG Hemostasis achieved Yes Note 10 min hold with blue clamps Orientation Alert and Oriented x3 Yes Time Yes Place Yes Person Yes Cooperative Yes Disoriented No Discharge Ambulation Methods Departs via w/c Wrap up items Patient Response to Treatment Tolerated tx well. Removed 4.3L UF goal without difficulty. Comments No issues during tx, no concerns voiced post tx. * Dialysis Comprehensive - Carlota Jin MD - 11/13/2024 0645 EST Images from the original note were not included. 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 associated with type 2diabetes mellitus ([facility]) ESRD (end stage renal disease) ([facility]) Primary hypertension [I10] Hearing loss Herniation of lumbar intervertebral disc with radiculopathy Hyperlipidemia Proteinuria Right sided numbness Secondary hyperparathyroidism ([facility]) TIA (transient ischemic attack) Type II or unspecified type diabetes mellitus with neurological manifestations, uncontrolled(250.62) Encounter for immunization Hypoalbuminemia Anemia of chronic renal failure Abnormal albumin Cellulitis and abscess of foot, except toes Encounter for therapeutic drug monitoring Diabetic foot infection ([facility]) [E11.628, L08.9] COVID Type 2 diabetes mellitus with chronic kidney disease on chronic dialysis, with long-term current use of insulin ([facility]) [E11.22, N18.6, Z99.2, Z79.4] Anemia of chronic renal failure, stage 5 ([facility]) [N18.5, D63.1] ESRD on hemodialysis ([facility]) Atrial fibrillation and flutter ([facility]) Anemia in chronic kidney disease Anxiety and depression GERD (gastroesophageal reflux disease) Nicotine dependence, cigarettes, uncomplicated Non-healing open wound of heel Olecranon bursitis, right elbow Osteoarthrosis Peripheral neuropathy Retinopathy Sciatica Smoker Type 2 diabetes mellitus with diabetic neuropathy, unspecified ([facility]) Secondary hyperparathyroidism of renal origin ([facility]) Diabetes mellitus ([facility]) Treatment Modality: Patient received information regarding treatment options: Yes Patient is interested in pursuing a different modality: No Patient is a home dialysis candidate: No Patient Treatment Choice: Hemodialysis, Incenter Plan: Continue current modality. Transplantation: Patient Had Prior Transplant: No 12/16/2022 12:29 10/01/2023 12:02 07/21/2024 9:21 07/21/2024 10:56 Transplant Status Referral Status Declines Requests Requests Meets Criteria at Center? No N/A No No Info Sent? No Yes Yes Workup in Progress? No N/A No Transplant Candidate? No N/A No No On Active Transplant List? No No No Listing On-Hold? No No No Transplant Center [facility] Comments Patient does not meet transplant criteria due to daily smoking cigarettes pt referred to transplant @ [facility] declined due to severe PVD with s/p angioplasty and stent in the right SFA that will not allow proper arterial anastomosis of the graft and significantly reduced left femoral blood flow that will not allow left femoral or iliac implantation. not a surgical candidate per surgery team. declined due to severe PVD with s/p angioplasty and stent in the right SFA that will not allow proper arterial anastomosis of the graft and significantly reduced left femoral blood flow that will not allow left femoral or iliac implantation. not a surgical candidate per surgery team. Current Dialysis Prescription: Hemodialysis Therapy Plan In-Center Hemodialysis 3 times a week Prescribed Weight (Kg): 75.5 Treatments Per Week: 3 Dialyzer: OPTIFLUX 200NR Dialysate concentrate: Potassium 2 mEq/L Calcium 2.5 mEq/L Sodium NA+: Other Please specify: 136 Dialysate: Bicarb (mEq/L): 33 Dialysate Temperature (Centigrade): 36.5 BFR mL/min: 400 mL/min Dialysate Flow Rate (mL/min): 800 mL/min Duration of Treatment (hrs): 4 Hours Primary Access Site: AV Fistula Needle gauge: 15g 1 Dialysis - UF Profile: None Plan: Continue Previous Dialysis Prescription? Yes Fluid Management/Vital Sign Review Prescribed Weight: Prescribed Weight (Kg): 75.5 I reviewed the patient's volume status with Nursing: Yes Average Interdialytic Fluid Gains: 11/08/2024 6:25 11/08/2024 10:45 11/10/2024 6:18 11/10/2024 6:25 11/10/2024 10:51 11/13/2024 6:20 11/13/2024 6:27 InterDialytic +/- Gain/Loss 4.6 3.5 3.5 5.6 5.6 Wt (pre) 81.3 80.4 80.4 81.8 81.8 Wt (post) 76.9 76.2 Treatment UFR (ml:kg:hr) 14.01 ml:kg:hr 13.02 ml:kg:hr BP (post) 155/87 208/90 208/90 174/48 174/48 Pulse(post) 65 60 60 62 62 Resp (/min) 16 16 16 Volume and blood pressure have been addressed with the following changes: None Consistently able to achieve estimated dry weight? No: UFR > 13 mL/kg/hr Blood pressure is in range for patient? No. Other: labile Any adverse intradialytic symptoms? No Plan: Managed per protocol Physical Exam Constitutional No distress, [place] [place] Respiratory: Unlabored breathing Cardiac: deferred Abdomen: deferred Extremities: B/l LE amputation; no obvious edema of stump Hospitalization Hospitalization in Previous 1 Month: No Emergency Room Visit in Previous 1 Month: No Access Management Current LDAs: Hemodialysis Arteriovenous Access 02/13/19 (Active) AV Fistula Present 11/13/24 06 Site Assessment Clean;Dry;Intact;Bruit heard;Thrill felt 11/13/24 0635 Current State Active 11/13/24 0635 Status Accessed 11/13/2435 Is Maturing N 11/13/2435 Local Anesthetic None 11/13/2435 Site Prep Chlorhexidine 11/13/2435 Venous Needle Size 15 G 11/13/2435 Arterial/Generic Needle Size 15 G 11/13/24 0635 Accessed by: Sandra Rae 11/13/24634 Access Attempts 1 11/13/2435 Dressing Status/Care Clean/Dry/Intact 11/13/24 0635 Dressing Intervention Other (Comment) 05/30/242054 Patient has AVF/AVG as primary access: Yes Patient has Catheter as primary access >90 days: No Home Medication Review/Update Current Outpatient Medications: acetaminophen (TYLENOL) 325 mg tablet, Take 2 Tablets by mouth every 6 hours., Disp: , Rfl: 0 albuterol 90 mcg/actuation HFA aerosol inhaler inhaler, Inhale 2 Puffs as directed every 4 hours., Disp: , Rfl: amLODIPine (NORVASC) 10 mg tablet, Take 1 Tablet by mouth daily., Disp: , Rfl: apixaban (ELIQUIS) 5 mg tablet, Take 1 Tablet by mouth 2 times daily., Disp: , Rfl: aspirin chewable 81 mg tablet, Take 1 Tablet by mouth daily., Disp: , Rfl: atorvastatin (LIPITOR) 40 mg tablet, Take 1 Tablet by mouth daily., Disp: , Rfl: calcium carbonate (TUMS) 200 mg calcium (500 mg) tablet,chewable, Take 1 Tablet by mouth 3 times daily with meals., Disp: , Rfl: carvediloL (COREG) 12.5 mg tablet, Take 1 Tablet by mouth 2 times daily., Disp: , Rfl: cholecalciferol, Vitamin D3, 25 mcg (1,000 unit) tablet, Take 2 Tablets by mouth., Disp: , Rfl: dilTIAZem (CARDIZEM CD) 120 mg capsule, Take 1 Capsule by mouth daily., Disp: 30 Capsule, Rfl: 0 DULoxetine (CYMBALTA) 20 mg delayed release capsule, Take 1 Capsule by mouth 2 times daily., Disp: , Rfl: HYDROmorphone (DILAUDID) 2 mg tablet, Take 2 Tablets by mouth every 4 hours as needed. (Patient nottaking: Reported on 11/08/2024), Disp: , Rfl: insulin aspart U-100 (NOVOLOG FLEXPEN) 100 unit/mL (3 mL) injectable pen, Inject into the skin 3 times daily with meals. Per sliding scale, Disp: , Rfl: insulin glargine 100 unit/mL (3 mL) injection pen, Inject 10 Units into the skin 2 times daily. 10 u after dialysis around 11am and 10 u at bedtime, around 10 pm, Disp: , Rfl: insulin pen needles 32G x 5/32, Brand: [employer] Ultra Fine Anny. ISS TID and levemir once daily, Disp: 100 Each, Rfl: 11 pantoprazole (PROTONIX) 40 mg tablet, Take 1 Tablet by mouth daily., Disp: , Rfl: polyethylene glycol 3350 (MIRALAX) 17 gram packet, Take 17 g by mouth 2 times daily. (Patient not taking: Reported on 11/08/2024), Disp: , Rfl: pregabalin (LYRICA) 100 mg capsule, Take 1 Capsule by mouth 2 times daily. 1 tab in the morning, 2 tabs at night, Disp: , Rfl: SUSY-LOCO 0.8 mg tablet, Take 1 Tablet by mouth daily., Disp: , Rfl: senna-docusate (SENNA PLUS) 8.6-50 mg per tablet, Take 1 Tablet by mouth daily., Disp: , Rfl: sevelamer carbonate (RENVELA) 800 mg tablet, Take 3 Tablets by mouth daily before breakfast AND 3 Tablets daily before lunch AND 3 Tablets daily before dinner., Disp: 270 Tablet, Rfl: 5 sodium zirconium cyclosilicate (LOKELMA) 10 gram powder in packet, Take 10 g by mouth daily., Disp:30 Packet, Rfl: 11 tiZANidine (ZANAFLEX) 4 mg tablet, Take 1 Tablet by mouth every 8 hours as needed., Disp: , Rfl: torsemide (DEMADEX) 100 mg tablet, Take 1 Tablet by mouth daily., Disp: 30 Tablet, Rfl: 11 Adjustment made to home medication: Yes: Take AM Lantus at noon, and PM dose at bedtime Dialysis Medication Review Dialysis Plan Order Summary All Current Orders Interval Duration Due Hemodialysis Therapy Plan Dialysis Treatment In-Center Hemodialysis 3 times a week Week of 11/12/2024 Routine, ONE TIME Starting when released Prescribed Weight (Kg): 75.5 Treatments Per Week: 3 Dialyzer: OPTIFLUX 200NR Dialysate concentrate: Potassium 2 mEq/L Calcium 2.5 mEq/L Sodium NA+: Other Please specify: 136 Dialysate: Bicarb (mEq/L): 33 Dialysate Temperature (Centigrade): 36.5 BFR mL/min: 400 mL/min Dialysate Flow Rate (mL/min): 800 mL/min Duration of Treatment (hrs): 4 Hours Primary Access Site: AV Fistula Needle gauge: 15g 1 Dialysis - UF Profile: None Dialysis Last released: Wed11/13/2024 Oxygen Therapy (Age 2 yrs. to Adult) PRN PRN Routine, CONTINUOUS Starting when released Until Specified Initial Setting: As directed Device: Nasal cannula lpm: 2 Adjust flow rate and/or delivery device in order to maintain: 92% to 98% Dialysis Last released: Wed11/15/2023 Medications acetaminophen (TYLENOL) tablet 650 mg PRN PRN 650 mg, oral, EVERY 4 HOURS PRN Starting when released Until Discontinued, Pain, Dialysis Last released: Wed10/23/2024 diphenhydrAMINE (BENADRYL) capsule 25 mg PRN PRN 25 mg, oral, EVERY 6 HOURS PRN Starting when released Until Discontinued, Itching, Other, transfusion reaction, Dialysis Last released: Never heparin injection 3,000 Units Every visit Every visit 3,000 Units, intravenous, ONCE IN DIALYSIS Starting when released, Dialysis Now x1 bolus 1500 units to be given at the beginning of dialysis 500 units/hour to be given over the course of dialysis (3000 units total). Stop 1 hour prior to endof treatment. To be administered per Policy [id number]. Last released: Wed11/13/2024 sodium chloride 0.9 % BOLUS 100 mL PRN PRN 100 mL, intravenous, PRN Starting when released Until Discontinued, Other, hypotension or cramping,Dialysis Last released: Wed11/08/2024 dextrose 50 % solution 12.5 g PRN PRN 12.5 g, intravenous, NOW X1 Starting when released Last released: Viridiana 10/26/2024 Dialysis Weekly Labs Complete Blood Count Weekly: Wed11/15/2024 Routine, ONE TIME Starting when released, Blood, Venous, Blood Dialysis Last released: Wed11/08/2024 Dialysis Monthly Labs Dialysis Iron (Includes Iron, IBC, and Ferritin) - Nephrology Use Only On the Wed of every 1 month Wed11/27/2024 Routine, ONE TIME Starting when released, Blood, Venous, Blood Dialysis Last released: Wed10/30/2024 Dialysis Routine- Dialysis Use Only On the Wed of every 1 month Wed11/27/2024 Routine, ONE TIME Starting when released, Blood, Blood, Venous Dialysis Last released: Wed10/30/2024 Postdialysis BUN with URR Calculation On the Wed of every 1 month Wed11/27/2024 Routine, ONE TIME Starting when released, Blood, Blood, Venous Dialysis Last released: Wed10/30/2024 Dialysis Quarterly Labs PTH Intact On the Wed of every 3 months Wed01/29/2025 Routine, ONE TIME Starting when released, Blood, Venous, Blood Dialysis Last released: Wed10/30/2024 Dialysis Annual Labs - October Dialysis Hepatitis- Dialysis Use Only On the Wed of every 12 months Wed10/29/2025 Routine, ONE TIME Starting when released, Blood, Blood, Venous Dialysis Last released: Wed10/30/2024 Folate On the Wed of every 12 months Wed10/29/2025 Routine, ONE TIME Starting when released, Blood, Venous, Blood Dialysis Last released: Wed10/30/2024 Vitamin B12 On the Wed of every 12 months Wed10/29/2025 Routine, ONE TIME Starting when released, Blood, Venous, Blood Dialysis Last released: Wed10/30/2024 Vitamin D (25,OH) On the Mon of every 12 months Wed10/29/2025 Routine, ONE TIME Starting when released, Blood, Venous, Blood Dialysis Last released: Wed10/30/2024 Dialysis Annual Labs - April Hepatitis C Ab w Reflex to HCV RNA by PCR On the Mon of every 12 months Wed04/30/2025 Routine, ONE TIME Starting when released, Blood, Venous, Blood Dialysis Last released: Wed05/01/2024 Dialysis PRN Labs Potassium PRN PRN ONE TIME Starting when released, Blood, Venous, Blood Results Release to Patient (Note: Choosing Manual Release will only block results from tests performed at [facility] and does not apply for Miscellaneous Test Order): Immediate Dialysis Last released: Never HEMODIALYSIS ANEMIA [facility] Medications epoetin ken (EPOGEN) 20,000 unit/2 mL injection 5,000 Units 3 times a week Week of 11/12/2024 5,000 Units, intravenous, ONCE IN DIALYSIS Starting when released, Dialysis Last released: Wed11/13/2024 HEMODIALYSIS NUTRITIONAL SUPPLEMENTS Nutritional Supplements LiquaCel liquid protein liquid 30 mL Every visit Every visit 30 mL, oral, ONCE IN DIALYSIS Starting when released Patient's flavor preference: either Dialysis Last released: Wed11/13/2024 HEMODIALYSIS CKD MBD MEDS Medications calcium carbonate (TUMS) tablet 500 mg (200 mg elemental calcium) 2 Tablet Every visit Every visit 2 Tablet, oral, ONCE IN DIALYSIS Starting when released, Dialysis Last released: Wed11/13/2024 Adjustment made to dialysis medication: No Laboratory Results Dialysis Adequacy: spKt/V: 1.42 (Calculated from:; BUN Pre-Dialysis: 70 mg/dL at 10/30/2024 11:05; BUN Post-Dialysis: 22mg/dL at 10/30/2024 11:05; Pre-Treatment Weight (kg): 81.1 at 10/30/2024 6:29; Post-Treatment Weight (kg): 77.1 at 10/30/2024 10:55; Duration of Treatment (minutes): 243 minutes at 10/30/2024 10:55) Plan: Continue current dialysis prescription Anemia Management: Lab Results Component Value Date WBC 9.11 11/08/2024 HGB 10.5 (L) 11/08/2024 HGB 9.9 (L) 11/01/2024 HGB 10.0 (L) 10/26/2024 PLT 252 11/08/2024 FOLATE >24.0 10/30/2024 [id number] 342 10/30/2024 FERRITIN 339 (H) 10/30/2024 Current GEORGE/Dose: HEMODIALYSIS ANEMIA MEDS epoetin ken (EPOGEN) 20,000 unit/2 mL injection 5,000 Units 5,000 Units, intravenous, 3 times a week, ONCE IN DIALYSIS Iron Series/Maintenance: This patient does not have an active medication from one of the medication groupers. Oral Iron: This patient does not have an active medication from one of the medication groupers. Blood Transfusion in Last Month: No Patient Meets Anemia Management Goals: Yes Plan: Managed per protocol Mineral and Renal Bone Disease Management: Lab Results Component Value Date LABALBU 3.4 10/30/2024 ALKPHOS 80 10/30/2024 PHOS 9.9 (H) 10/30/2024 CALCIUM 8.1 (L) 10/30/2024 CALCCA 8.6 (L) 10/30/2024 PTH 641.9 (H) 10/30/2024 Vitamin D: cholecalciferol (Vitamin D3) - 25 mcg (1,000 unit) sevelamer carbonate - 800 mg This patient does not have an active medication from one of the medication groupers. Plan: Managed per protocol Potassium Management: Lab Results Component Value Date K 7.0 (H) 10/30/2024 Prescribed Potassium Concentrate: HEMODIALYSIS Ordered at: 11/13/24 0620 Dialysate concentrate: Potassium 2 mEq/L Calcium 2.5 mEq/L 11/13/2024 6:20 Last Dialysis Prescription released on: Selected bath: Potassium 2 mEq/L Calcium 2.5 mEq/L sevelamer carbonate - 800 mg sodium zirconium cyclosilicate powder in packet - 10 gram - it is unclear if he is taking this, or if he has even been able to pick it up from the pharmacy (unclear if insurance is now accepting it) Plan: Managed per protocol Nutrition: Lab Results Component Value Date LABALBU 3.4 10/30/2024 TP 6.4 12/19/2023 NA 139 10/30/2024 SERGLU 265 (H) 05/31/2024 HGBA1C 11.6 (H) 11/07/2023 Protein Supplements: This patient does not have an active medication from one of the medication groupers. Plan: Managed per protocol Comments: Ongoing issues with labile blood sugars. I had changed his long-acting insulin to 10 units BID but it seems that on the days he has dialysis, his blood sugars are very high for the rest of the day, presumably because his AM insulin is being dialyzed off. I have suggested he try taking the 10 unit AM dose at noon (after dialysis; and every day at that time) and the PM dose at bedtime as he is doing. He thinks he has an appt with his PCP or certified lactation educator soon, but he is not sure when. Ongoing issues with hyperkalemia and hyperphosphatemia due to dietary and medication non-adherence.HGBA1c is also very elevated (11.6). Encouraged him to make the necessary changes and be seen by PCP and certified lactation educator. Carlota Jin MD documented in this encounter Plan of Treatment Upcoming Encounters Date Type Department Care Team (Late st Contact Info) Description 12/06/2024 6:45 EST Treatment [facility] [address] [place], [place] [phone] Carlota Jin MD 1 [facility], [facility] [place] [phone] 12/08/2024 6:45 EST Treatment [facility] [place] [address] [place], [place] [phone] Carlota Jin MD 1 [facility], [facility] [place] [phone] 12/11/2024 6:45 EST Treatment [facility] [place] [address] [place], [place] [phone] Carlota Jin MD 1 [facility], [facility] [address] [place] [phone] 12/13/2024 6:45 EST Treatment [facility] [place] [address] [place], [place] [phone] Carlota Jin MD 1 [facility] [address] [place] [phone] 12/15/2024 6:45 EST Treatment [facility] [place] [address] [place], [place] [phone] Carlota Jin MD 1 [facility], [facility] [address] [place] [phone] 12/18/2024 6:45 EST Treatment [facility] [place] [address] [place] [address] Carlota Jin MD 1 [facility], [facility] [address] [place] [phone] 12/20/2024 6:45 EST Treatment [facility] [place] [address] [place] [address] Carlota Jin MD 1 [facility] [address] [place] [phone] 12/22/2024 6:45 EST Treatment [facility] [place] [address] [place], [place] [phone] Carlota Jin MD 1 [facility], [facility] [address] [place] [phone] 12/25/2024 6:45 EST Treatment [facility] [place] [address] [place], [place] [phone] Carlota Jin MD 1 [facility], [address] [phone] 12/27/2024 6:45 EST Treatment [facility] [place] [address] [place] [address] Carlota Jin MD 1 [facility], [address] [phone] 12/29/2024 6:45 EST Treatment [facility] [place] [address] [place], [place] [phone] Carlota Jin MD 1 [facility], [address] [phone] 01/01/2025 6:45 EDT Treatment [facility] [place] [address] [place] [address] Carlota Jin MD 1 [facility], [address] [phone] 01/03/2025 6:45 EDT Treatment [facility] [place] [address] [place], [place] [phone] Carlota Jin MD [address] [phone] 01/05/2025 6:45 EDT Treatment [facility] [place] [address] [place], [place] [phone] Carlota Jin MD 1 [facility], [facility] [address] [place] [phone] 01/08/2025 6:45 EDT Treatment [facility] [place] [address] [place], [place] [phone] Carlota Jin MD 1 [facility], [facility] [address] [place] [phone] 01/10/2025 6:45 EDT Treatment [facility] [place] [address] [place], [place] [phone] Carlota Jin MD 1 [facility], [facility] [address] [place] [phone] 01/12/2025 6:45 EDT Treatment [facility] [place] [address] [place], [place] [phone] Carlota Jin MD 1 [facility], [facility] [address] [place] [phone] 01/15/2025 6:45 EDT Treatment [facility] [place] [address] [place], [place] [phone] Carlota Jin MD 1 [facility], [facility] [address] [place] [phone] 01/17/2025 6:45 EDT Treatment [facility] [address] [place], [place] [id number] Carlota Jin MD 1 [facility], [facility] [address] [place] [phone] 01/19/2025 6:45 EDT Treatment [facility] [address] [place], [place] [address] Carlota Jin MD 1 [facility], [facility] [address] [place] [phone] 01/22/2025 6:45 EDT Treatment [facility] [address] [place], [place] [id number] Carlota Jin MD 1 [facility], [facility] [address] [place] [phone] 01/24/2025 6:45 EDT Treatment [facility] [address] [place], [place] [id number] Carlota Jin MD 1 [facility], [address] [phone] 01/26/2025 6:45 EDT Treatment [facility] [address] [place], [place] [id number] Carlota Jin MD 1 [facility], [facility] [address] [place] [phone] 01/29/2025 6:45 EDT Treatment [facility] [address] [place], [place] [id number] Carlota Jin MD 1 [facility], [facility] [address] [place] [phone] 01/31/2025 6:45 EDT Treatment [facility] [address] [place], [place] [id number] Carlota Jin MD 1 [facility], [facility] [address] [place] [phone] 02/02/2025 6:45 EDT Treatment [facility] [address] [place], [place] [address]475 Carlota Jin MD 1 [facility], [facility] [address] [place] [phone] 02/05/2025 6:45 EDT Treatment [facility] [place] [address] [place], [place] [id number] Carlota Jin MD 1 [facility], [facility] [address] [place] [phone] 02/07/2025 6:45 EDT Treatment [facility] [address] [place], [place] [id number] Carloat Jin MD 1 [facility], [facility] [address] [place] [phone] 02/09/2025 6:45 EDT Treatment [facility] [address] [place] [address] Carlota Jin MD 1 [facility], [facility] [address] [place] [phone] 02/12/2025 6:45 EDT Treatment [facility] [address] [place], [place] [id number] Carlota Jin MD 1 [facility], [facility] [address] [place] [phone] 02/14/2025 6:45 EDT Treatment [facility] [address] [place], [place] [id number] Carlota Jin MD [address] [place] [address], [address] [phone] 02/16/2025 6:45 EDT Treatment [facility] [place] [address] [place], [place] [id number] Carlota Jin MD [address] [place] [phone] 02/19/2025 6:45 EDT Treatment [facility] [address] [place], [place] [id number] Carlota Jin MD [address] [place] [address], [address] [phone] 02/21/2025 6:45 EDT Treatment [facility] [address] [place], [place] [id number] Carlota Jin MD [address] [place] [phone] documented as of this encounter Procedures Procedure Name Priority Date/Time Associated Diagnosis Comments HEMODIALYSIS Routine 11/13/2024 6:20 EST ESRD (end stage renal disease) ([facility]) documented in this encounter Visit Diagnoses Diagnosis ESRD (end stage renal disease) ([facility])- Primary End stage renal disease Hypoalbuminemia Other disorders of plasma protein metabolism Secondary hyperparathyroidism ([facility]) Secondary hyperparathyroidism (of renal origin) documented in this encounter Administered Medications Inactive Administered Medications - up to 3 most recent administrations Medication Order MAR Action Action Date Dose Rate Site calcium carbonate (TUMS) tablet 500 mg (200 mg elemental calcium) 2 Tablet 2 Tablet, oral, ONCE IN DIALYSIS, 1 dose, On Wed11/13/24 at 0645, Routine, DialysisIndications:ESRD (end stage renal disease) ([facility]),Secondary hyperparathyroidism ([facility]) Given 11/13/2024 6:28 EST 2 Tablets dextrose 50 % solution 12.5 g 12.5 g, intravenous, NOW X1, 1 dose, On Wed11/13/24 at 1130, RoutineIndications:ESRD (end stage renal disease) ([facility]) Given 11/13/2024 10:30 EST 12.5 g epoetin ken (EPOGEN) 20,000 unit/2 mL injection 5,000 Units 5,000 Units, intravenous, ONCE IN DIALYSIS, 1 dose, On Wed11/13/24 at 0645, Routine, DialysisIndications:ESRD (end stage renal disease) ([facility]) Given 11/13/2024 6:42 EST 5,000 Units heparin injection 3,000 Units 3,000 Units, intravenous, ONCE IN DIALYSIS, 1 dose, On Wed11/13/24 at 0645, Routine, Dialysis, Now x1 bolus 1500 units to be given at the beginning of dialysis 500 units/hour to be given over the course of dialysis (3000 units total). Stop 1 hour prior to end of treatment. To be administered per Policy [id number].Indications:ESRD (end stage renal disease) ([facility]) Given 11/13/2024 6:42 EST 3,000 Units LiquaCel liquid protein liquid 30 mL 30 mL, oral, ONCE IN DIALYSIS, 1 dose, On Wed11/13/24 at 0645, Patient's flavor preference: either, Routine, DialysisIndications:ESRD (end stage renal disease) ([facility]),Hypoalbuminemia Given 11/13/2024 6:28 EST 30 mL documented in this encounter Orders Dialysis Count Last Ordered Date First Orde red Date HEMODIALYSIS 1 11/13/2024 documented in this encounter Care Teams Broadcast News Producer Relationship Specialty Start Date End Date Ken Greer MD [address] [place] [address] PCP - General 07/07/23 Kiel Powers Calender Operator Helper Nephrology 05/31/24 documented as of this encounter
--- OUTSIDE RECORDS SUMMARY | 2024-12-05 11:54 | XMS_ITS | Encounter Summary ---
Author Organization [facility] Address [address] [place] [address] Care Team Providers [employer] Salesperson Name Role Phone Ken Greer MD Primary Care Provider [phone] Kiel Powers Unavailable Unavailable Reason for Visit * Episode Based Medications (Routine) - New Request Specialty Diagnoses / Procedures Referred By Nader gardiner Referred To Contact Diagnoses ESRD (end stage renal disease) ([facility]) Carlota Jin MD [address] [place] [address], [facility] [address] [place] [address] Phone: tel: fax: [facility] [place] [address] [place] [address] Phone: tel: fax: Referral ID Status Reason Start Date Expiration Date V isits Requested Visits Authorized [id number] New Request 03/17/2024 1 1 Encounter Details Date Type Department Care Team (Latest Contact Info) Description 11/01/2024 6:45 EST Treatment [facility] [address] [place] [id number] Carlota Jin MD [address] [place] [address], [facility] [address] [place] [phone] ESRD (end stage renal disease) ([facility]) (Primary Dx); Hypoalbuminemia; Secondary hyperparathyroidism ([facility]) Social History Tobacco Use Types [...] any time in the past 12 m [facility], were you homeless or living [...] the past 12 months has th e [employer], gas, oil, or water [employer] threatened to shut off services in your [...] - Temperature - - Respiratory Rate 16 11/01/2024 0617 EST Oxygen Saturation - - Inhaled Oxygen Concentration - - Weight 81.3 kg (179 lb 3.7 oz) 11/01/[address] Height - - Body Mass Index 25.72 07/20/2024 1359 EDT documented in this encounter [...] documented in this encounter Progress Notes * Paris Quintanilla NP - 11/01/2024 0645 EST Dialysis Provider's Routine Assessment The visit was conducted via telehealth (audio/video) between the [facility] dialysis unit and the provider from their Home Office. The interaction was assisted by Paulina . Consent has been obtained and is available on file. Gerson Bruner was seen and examined as appropriate during Dialysis. Pertinent lab results were reviewed. Changes since last visit: Insulin glargine changed to 10 units BID formerly 25 u every day. Patient with new Freestyle Maris glucose monitor and phone alarms for highs and lows. Changes to current prescriptions/orders: None K of 7.0 mEq/L. Reviewed with patient. He initially seemed unconcerned. I reminded him that high potassium can stop his heart and he seemed impressed by that. I reminded him to take his Kayexalate. He had been sleeping on dialysis which is his usual and was drowsy, falling back asleep at the end ofour visit. RN noted patient inadvertently dislodged a needle today and a stat Hgb was sent. He was simply moving in his sleep. Weights are up about 2 kg and BP is higher this week. Labs reviewed, managing per protocol/guidelines. Paris Quintanilla NP documented in this encounter Miscellaneous Notes * Flowsheet Note - Marcela Cox RN - 11/01/2024 1142 EST 11/01/24 1107 Post-Hemodialysis Assessment Total Blood Processed (L) 91.91 Liters On Line Clearance: spKt/V 1.51 spKt/V Dialyzer Clearance Lightly streaked Treatment UFR (ml:kg:hr) 11.2 ml:kg:hr Critline refill Not done Fluid Removed (L) 4.3 L Post-Dialysis Scale Weight 94.6 kg (208 lb 8.9 oz) Wheelchair Weight 17.2 kg (37 lb 14.7 oz) Prosthesis Weight 0 kg (0 lb) Post-Treatment Weight (kg) 77.4 Treatment Weight Change (kg) 3.9 kg Day Target Weight (kg) 77.5 Post Sitting/Lying BP 167/86 Post Sitting/Lying pulse 63 Temp 36.7 ??C (98.1 ??F) Temp src Temporal Minutes Short -270 Post access assessment AVF/AFG Hemostasis achieved Yes Note 10 min hold Orientation Alert and Oriented x3 Yes Time Yes Place Yes Person Yes Cooperative Yes Disoriented No Discharge Ambulation Methods Departs via w/c;With patient transport Wrap up items Patient Response to Treatment Removed 4.3L UF goal without difficulty. Comments venous needle dislodged during tx, see event for further information. Hgb drawn post eventwith result of 10.4 * Addendum Note - Marcela Cox RN - 11/01/2024 0645 ESTAddended by: MARCELA COX on: 11/01/2024 15:07 Modules accepted: Orders documented in this encounter Plan of Treatment Upcoming Encounters Date Type Department Care Team (Late st Contact Info) Description 12/06/2024 6:45 EST Treatment [facility] [place] [address] [place] [address] Carlota Jin MD 1 [facility] [address] [place] [phone] 12/08/2024 6:45 EST Treatment [facility] [place] [address] [place], [place] [phone] Carlota Jin MD 1 [facility], [facility] [address] [place] [phone] 12/11/2024 6:45 EST Treatment [facility] [place] [address] [place] [address] Carlota Jin MD 1 [facility], [facility] [address] [place] [phone] 12/13/2024 6:45 EST Treatment [facility] [place] [address] [place], [place] [address] [phone] Carlota Jin MD 1 [facility], [facility] 2 [place] [phone] 12/15/2024 6:45 EST Treatment [facility] [place] [address] [place] [address] Carlota Jin MD 1 [facility], [facility] [address] [place] [phone] 12/18/2024 6:45 EST Treatment [facility] [place] [address] [place], [place] [id number] Carlota Jin MD 1 [facility], [facility] [address] [place] [phone] 12/20/2024 6:45 EST Treatment [facility] [place] [address] [place], [place] [address] Carlota Jin MD 1 [facility], [facility] 2 [place] [phone] 12/22/2024 6:45 EST Treatment [facility] [place] [address] [place] [address] Carlota Jin MD 1 [facility], [address] [phone] 12/25/2024 6:45 EST Treatment [facility] [place] [address] [place], [place] [id number] Carlota Jin MD 1 [facility], [address] [phone] 12/27/2024 6:45 EST Treatment [facility] [place] [address] [place] [address] Carlota Jin MD 1 [facility], [address] [phone] 12/29/2024 6:45 EST Treatment [facility] [address] [place], [place] [phone] Carlota Jin MD [address] [phone] 01/01/2025 6:45 EDT Treatment [facility] [place] [address] [place], [place] [id number] Carlota Jin MD 1 [facility], [facility] 2 [place] [phone] 01/03/2025 6:45 EDT Treatment [facility] [place] [address] [place], [place] [id number] Carlota Jin MD 1 [facility], [facility] 2 [place] [phone] 01/05/2025 6:45 EDT Treatment [facility] [place] [address] [place], [place] [id number] Carlota Jin MD 1 [facility], [address] [phone] 01/08/2025 6:45 EDT Treatment [facility] [place] [address] [place], [place] [id number] Carlota Jin MD 1 [facility], [facility] 2 [place] [phone] 01/10/2025 6:45 EDT Treatment [facility] [place] [address] [place], [place] [id number] Carlota Jin MD 1 [facility], [facility] 2 [place] [phone] 01/12/2025 6:45 EDT Treatment [facility] [place] [address] [place], [place] [id number] Carlota Jin MD 1 [facility], [facility] 2 [place] [phone] 01/15/2025 6:45 EDT Treatment [facility] [place] [address] [place], [place] [id number] Carlota Jin MD 1 [facility], [facility] 2 [place] [phone] 01/17/2025 6:45 EDT Treatment [facility] [place] [address] [place], [place] [id number] Carlota Jin MD 1 [facility], [address] [phone] 01/19/2025 6:45 EDT Treatment [facility] [place] [address] [place], [place] [id number] Carlota Jin MD 1 [facility], [address] [phone] 01/22/2025 6:45 EDT Treatment [facility] [place] [address] [place], [place] [id number] Carlota Jin MD 1 [facility], [address] [phone] 01/24/2025 6:45 EDT Treatment [facility] [place] [address] [place], [place] [id number] Carlota Jin MD 1 [facility], [facility] 2 [place] [phone] 01/26/2025 6:45 EDT Treatment [facility] [place] [address] [place], [place] [id number] Carlota Jin MD 1 [facility], [facility] 2 [place] [phone] 01/29/2025 6:45 EDT Treatment [facility] [place] [address] [place], [place] [address] Carlota Jin MD 1 [facility], [facility] [address] [place] [phone] 01/31/2025 6:45 EDT Treatment [facility] [place] [address] [place], [place] [id number] Carlota Jin MD 1 [facility], [facility] 2 [place] [phone] 02/02/2025 6:45 EDT Treatment [facility] [place] [address] [place], [place] [id number] Carlota iJn MD 1 [facility], [facility] 2 [place] [phone] 02/05/2025 6:45 EDT Treatment [facility] [place] [address] [place] [address] Carlota Jin MD 1 [facility], [facility] 2 [place] [phone] 02/07/2025 6:45 EDT Treatment [facility] [place] [address] [place], [place] [id number] Carlota Jin MD 1 [facility], [facility] 2 [place] [phone] 02/09/2025 6:45 EDT Treatment [facility] [place] [address] [place], [place] [id number] Carlota Jin MD 1 [facility], [facility] 2 [place] [phone] 02/12/2025 6:45 EDT Treatment [facility] [place] [address] [place], [place] [id number] Carlota Jin MD [address] [place] [address], [address] [phone] 02/14/2025 6:45 EDT Treatment [facility] [place] [address] [place], [place] [id number] Carlota Jin MD [address] [place] [address], [address] [phone] 02/16/2025 6:45 EDT Treatment [facility] [place] [address] [place], [place] [id number] Carlota Jin MD [address] [place] [address], [facility] 2 [place] [phone] 02/19/2025 6:45 EDT Treatment [facility] [place] [address] [place], [place] [id number] Carlota Jin MD [address] [place] [address], [facility] 2 [place] [phone] 02/21/2025 6:45 EDT Treatment [facility] [place] [address] [place], [place] [phone] Carlota Jin MD 1 [facility], Level [address] [place] [phone] documented as of this encounter Procedures Procedure Name Priority Date/Time Associated Diagnosis Comments COMPLETE BLOOD COUNT Routine 11/01/2024 6:27 EST ESRD (end stage renal disease) ([facility]) HEMODIALYSIS Routine 11/01/2024 6:17 EST ESRD (end stage renal disease) ([facility]) documented in this encounter Results * (ABNORMAL) COMPLETE BLOOD COUNT (11/01/2024 6:27 EST) WBC 8.22 4.00 - 10.40 K/cmm 11/01/2024 22:28 [facility] RBC 3.34(L) 4.36 - 5.78 M/cmm 11/01/2024 22:28 [facility] Hemoglobin 9.9(L) 13.8 - 17.3 g/dL 11/01/2024 22:28 [facility] HCT 30.5(L) 39.5 - 50.2 % 11/01/2024 22:28 [facility] MCV 91 81 - 95 fL 11/01/2024 22:28 [facility] MCH 29.6 27.6 - 33.0 pg 11/01/2024 22:28 [facility] MCHC 32.5(L) 32.8 - 36.4 g/dL 11/01/2024 22:28 [facility] RDW-CV 16.6(H) <14.2 % 11/01/2024 22:28 [facility] RDW-SD 54.9(H) <46.0 fl 11/01/2024 22:28 [facility] PLT 265 141 - 377 K/cmm 11/01/2024 22:28 [facility] MPV 12.0 9.5 - 12.7 fL 11/01/2024 22:28 [facility] Blood VENOUS BLOOD / Unknown Venipuncture / Unknown 11/01/2024 6:27 EST 11/01/2024 6:27 EST us Carlota Jin MD HEMATOLOGY & PF4 ORDERABL ES Final Result [facility] [address] [place] [address] documented in this encounter Visit Diagnoses Diagnosis ESRD (end stage renal disease) ([facility] Primary End stage renal disease Hypoalbuminemia Other disorders of plasma protein metabolism Secondary hyperparathyroidism ([facility]) Secondary hyperparathyroidism (of renal origin) documented in this encounter Administered Medications Inactive Administered Medications - up to 3 most recent administrations Medication Order MAR Action Action Date Dose Rate Site calcium carbonate (TUMS) tablet 500 mg (200 mg elemental calcium) 2 Tablet 2 Tablet, oral, ONCE IN DIALYSIS, 1 dose, On Wed11/01/24 at 0645, Routine, DialysisIndications:ESRD (end stage renal disease) ([facility]),Secondary hyperparathyroidism ([facility]) Given 11/01/2024 6:39 EST 2 Tablets epoetin ken (EPOGEN) 20,000 unit/2 mL injection 5,000 Units 5,000 Units, intravenous, ONCE IN DIALYSIS, 1 dose, On Wed11/01/24 at 0645, Routine, DialysisIndications:ESRD (end stage renal disease) ([facility]) Given 11/01/2024 6:39 EST 5,000 Units heparin injection 3,000 Units 3,000 Units, intravenous, ONCE IN DIALYSIS, 1 dose, On Wed11/01/24 at 0645, Routine, Dialysis, Now x1 bolus 1500 units to be given at the beginning of dialysis 500 units/hour to be given over the course of dialysis (3000 units total). Stop 1 hour prior to end of treatment. To be administered per Policy [id number].Indications:ESRD (end stage renal disease) ([facility]) Given 11/01/2024 6:39 EST 3,000 Units LiquaCel liquid protein liquid 30 mL 30 mL, oral, ONCE IN DIALYSIS, 1 dose, On Wed11/01/24 at 0645, Patient's flavor preference: either, Routine, DialysisIndications:ESRD (end stage renal disease) ([facility]),Hypoalbuminemia Given 11/01/2024 6:39 EST 30 mL loperamide (IMODIUM) capsule 4 mg 4 mg, oral, 4 TIMES DAILY PRN, Starting on Wed11/01/24 at 0639, Until Wed11/01/24 at 1451, Diarrhea, Routine Given 11/01/2024 6:39 EST 4 mg documented in this encounter Orders Dialysis Count Last Ordered Date First Orde red Date HEMODIALYSIS 1 11/01/2024 documented in this encounter Care Teams [employer] Furnish[employer] Salesperson Relationship Specialty Start Date End Date Ken Greer MD [address] [place] [address] PCP - General 07/07/23 Kiel Powers Maintenance Associate Nephrology 05/31/24 documented as of this encounter
--- OUTSIDE RECORDS SUMMARY | 2024-12-05 11:54 | XMS_ITS | Encounter Summary ---
Author Organization [facility] Address [address] [place] [address] Care Team Providers Care Hogshead Roller Name Role Phone Ken Greer MD Primary Care Provider [phone] Kiel Powers Unavailable Unavailable Reason for Visit * Episode Based Medications (Routine) - New Request Specialty Diagnoses / Procedures Referred By Nader gardiner Referred To Contact Diagnoses ESRD (end stage renal disease) ([facility]) Carlota Jin MD [address] [place] [address], [facility] [address] [place] [address] Phone: tel: fax: [facility] [place] [address] [place] [address] Phone: tel: fax: Referral ID Status Reason Start Date Expiration Date V isits Requested Visits Authorized [id number] New Request 03/17/2024 1 1 Encounter Details Date Type Department Care Team (Latest Contact Info) Description 11/08/2024 6:45 EST Treatment [facility] [address] [place] [id number] Carlota Jin MD [address] [place] [address], [facility] [address] [place] [address] ESRD (end stage renal disease) ([facility]) (Primary Dx); Hypoalbuminemia; Secondary [facility]parathy[facility] Social History Tobacco Use Types Packs/Day Years Used Date Smoking Tobacco: Every Day Cigarettes 1 26.1 Started: 1998 Smokeless Tobacco: Never Alcohol Use Standard Drinks/Week Comments Yes 0 (1 standard drink = 0.6 oz pur e alcohol) Socially [facility] Utilities Answer Date Recorded In the [...] any time in the past 12 m [facility], were you homeless or living in a nursing home (including now)? No 05/30/2024 Interpersonal Safety [...] the past 12 months has th e [employer], gas, oil, or water [facility] threatened to shut off services in your [...] - Temperature - - Respiratory Rate 16 11/08/2024 0625 EST Oxygen Saturation - - Inhaled Oxygen Concentration - - Weight 81.2 kg (179 lb 0.2 oz) 11/08/[address] Height - - Body [...] Flowsheet Note - Marcela Cox RN - 11/08/2024 1128 EST 11/08/24 1045 Post-Hemodialysis Assessment Total Blood Processed (L) 90.07 Liters On Line Clearance: spKt/V 1.55 spKt/V Dialyzer Clearance Lightly streaked Treatment UFR (ml:kg:hr) 14.01 ml:kg:hr Final Critline Profile (%/hr) -2.06 Final Profile Profile A Critline refill Not done Fluid Removed (L) 4.3 L Post-Dialysis Scale Weight 94.1 kg (207 lb 7.3 oz) Wheelchair Weight 17.2 kg (37 lb 14.7 oz) Prosthesis Weight 0 kg (0 lb) Post-Treatment Weight (kg) 76.9 Treatment Weight Change (kg) 4.4 kg Day Target Weight (kg) 77.5 Post Sitting/Lying BP (!) 189/102 Post Sitting/Lying pulse 67 Temp 36.2 ??C (97.2 ??F) Temp src Temporal Minutes Short -245 Post access assessment AVF/AFG Hemostasis achieved Yes Note 10 min hold with blue clamps Orientation Alert and Oriented x3 Yes Time Yes Place Yes Person Yes Cooperative Yes Discharge Ambulation Methods Departs via w/c Wrap up items Patient Response to Treatment Tolerated tx well. Removed 4.3L UF goal without difficulty. Comments No issues during tx, no concerns voiced post tx. * Dialysis Rounding - Paris Quintanilla NP - 11/08/2024 0639 EST Dialysis Provider's Routine Assessment Gerson Bruner was seen and examined as appropriate during Dialysis. Pertinent lab results were reviewed. Changes since last visit: MD renewing attempt at [facility] coverage with insurance. Changes to current prescriptions/orders: Taking off 3.8 L net. Patient said treatment is going well today. One hypotensive episode in to 70's mmHg. Asked patient if he felt that BP but he dozed back off before he could answer. Appears to be breathing comfortably at rest. Crit-line noted profile A first two hours trending more towards B second half of treatment. Patient's breathing unlabored at rest. He may have some abdominal fluid but I did not do an abdominal exam. Technology Adoption Manager assisting with glucose management. Patient now with continuous sensor. Paris Quintanilla NP documented in this encounter Plan of Treatment Upcoming Encounters Date Type Department Care Team (Late st Contact Info) Description 12/06/2024 6:45 EST Treatment [facility] [place] [address] [place], [place] [phone] Carlota Jin MD [address] [place] [address], [facility] [address] [place] [address] 12/08/2024 6:45 EST Treatment [facility] [place] [address] [place], [place] [phone] Carlota Jin MD [address] [place] [address], [facility] [address] [place] [address] 12/11/2024 6:45 EST Treatment [facility] [place] [address] [place], [place] [phone] Carlota Jin MD 1 [facility], [facility] [address] [place] [phone] 12/13/2024 6:45 EST Treatment [facility] [place] [address] [place], [place] [phone] Carlota Jin MD 1 [facility], [facility] [address] [place] [phone] 12/15/2024 6:45 EST Treatment [facility] [place] [address] [place], [place] [phone] Carlota Jin MD 1 [facility], [facility] [address] [place] [phone] 12/18/2024 6:45 EST Treatment [facility] [place] [address] [place] [address] Carlota Jin MD 1 [facility], [facility] [address] [place] [phone] 12/20/2024 6:45 EST Treatment [facility] [place] [address] [place], [place] [phone] Carlota Jin MD 1 [facility], [facility] [address] [place] [phone] 12/22/2024 6:45 EST Treatment [facility] [place] [address] [place], [place] [phone] Carlota Jin MD 1 [facility], [facility] [address] [place] [phone] 12/25/2024 6:45 EST Treatment [facility] [place] [address] [place], [place] [phone] Carlota Jin MD 1 [facility], [facility] [address] [place] [phone] 12/27/2024 6:45 EST Treatment [facility] [place] [address] [place], [place] [phone] Carlota Jin MD 1 [facility], [facility] [address] [place] [phone] 12/29/2024 6:45 EST Treatment [facility] [place] [address] [place] [address] Carlota Jin MD 1 [facility], [facility] [address] [place] [phone] 01/01/2025 6:45 EDT Treatment [facility] [place] [address] [place], [place] [phone] Carlota Jin MD 1 [facility], [facility] [address] [place] [phone] 01/03/2025 6:45 EDT Treatment [facility] [place] [address] [place], [place] [phone] Carlota Jin MD 1 [facility], [facility] [address] [place] [phone] 01/05/2025 6:45 EDT Treatment [facility] [address] [place], [place] [phone] Carlota Jin MD 1 [facility], [facility] [address] [place] [phone] 01/08/2025 6:45 EDT Treatment [facility] [place] [address] [place], [place] [phone] Carlota Jin MD 1 [facility], [facility] [address] [place] [phone] 01/10/2025 6:45 EDT Treatment [facility] [place] [address] [place], [place] [phone] Carlota Jin MD 1 [facility], [facility] [address] [place] [phone] 01/12/2025 6:45 EDT Treatment [facility] [place] [address] [place], [place] [phone] Carlota Jin MD 1 [facility], [facility] [address] [place] [phone] 01/15/2025 6:45 EDT Treatment [facility] [place] [address] [place], [place] [phone] Carlota Jin MD 1 [facility], [facility] [address] [place] [phone] 01/17/2025 6:45 EDT Treatment [facility] [place] [address] [place], [place] [phone] Carlota Jin MD 1 [facility], [facility] [address] [place] [phone] 01/19/2025 6:45 EDT Treatment [facility] [place] [address] [place], [place] [phone] Carlota Jin MD 1 [facility], [facility] [address] [place] [phone] 01/22/2025 6:45 EDT Treatment [facility] [place] [address] [place], [place] [phone] Carlota Jin MD 1 [facility], [facility] [address] [place] [phone] 01/24/2025 6:45 EDT Treatment [facility] [place] [address] [place], [place] [phone] Carlota Jin MD 1 [facility], [facility] [address] [place] [phone] 01/26/2025 6:45 EDT Treatment [facility] [place] [address] [place], [place] [phone] Carlota Jin MD 1 [facility], [facility] [address] [place] [phone] 01/29/2025 6:45 EDT Treatment [facility] [place] [address] [place], [place] [phone] Carlota Jin MD 1 [facility], [facility] [address] [place] [phone] 01/31/2025 6:45 EDT Treatment [facility] [place] [address] [place], [place] [address] Carlota Jin MD 1 [facility], [facility] [address] [place] [phone] 02/02/2025 6:45 EDT Treatment [facility] [place] [address] [place], [place] [address] [phone] Carlota Jin MD 1 [facility], [facility] [address] [place] [phone] 02/05/2025 6:45 EDT Treatment [facility] [place] [address] [place], [place] [address] Carlota Jin MD 1 [facility], [address] [phone] 02/07/2025 6:45 EDT Treatment [facility] [place] [address] [place], [place] [phone] Carlota Jin MD 1 [facility], [address] [phone] 02/09/2025 6:45 EDT Treatment [facility] [place] [address] [place], [place] [phone] Carlota Jin MD 1 [facility], [address] [phone] 02/12/2025 6:45 EDT Treatment [facility] [place] [address] [place], [place] [phone] Carlota Jin MD 1 [facility], [facility] [address] [place] [phone] 02/14/2025 6:45 EDT Treatment [facility] [place] [address] [place], [place] [phone] Carlota Jin MD 1 [facility], [facility] [address] [place] [phone] 02/16/2025 6:45 EDT Treatment [facility] [place] [address] [place], [place] [phone] Carlota Jin MD 1 [facility], [address] [phone] 02/19/2025 6:45 EDT Treatment [facility] [place] [address] [place], [place] [phone] Carlota Jin MD 1 [facility], [address] [phone] 02/21/2025 6:45 EDT Treatment [facility] [place] [address] [place], [place] [phone] Carlota Jin MD 1 [facility], [facility] [address] [place] [phone] documented as of this encounter Procedures Procedure Name Priority Date/Time Associated Diagnosis Comments COMPLETE BLOOD COUNT Routine 11/08/2024 6:32 EST ESRD (end stage renal disease) ([facility]) HEMODIALYSIS Routine 11/08/2024 6:25 EST ESRD (end stage renal disease) ([facility]) documented in this encounter Results * (ABNORMAL) COMPLETE BLOOD COUNT (11/08/2024 6:32 EST) WBC 9.11 4.00 - 10.40 K/cmm 11/08/2024 22:04 [facility] RBC 3.52(L) 4.36 - 5.78 M/cmm 11/08/2024 22:04 [facility] Hemoglobin 10.5(L) 13.8 - 17.3 g/dL 11/08/2024 22:04 [facility] HCT 32.3(L) 39.5 - 50.2 % 11/08/2024 22:04 [facility] MCV 92 81 - 95 fL 11/08/2024 22:04 [facility] MCH 29.8 27.6 - 33.0 pg 11/08/2024 22:04 [facility] MCHC 32.5(L) 32.8 - 36.4 g/dL 11/08/2024 22:04 [facility] RDW-CV 16.6(H) <14.2 % 11/08/2024 22:04 [facility] RDW-SD 55.9(H) <46.0 fl 11/08/2024 22:04 [facility] PLT 252 141 - 377 K/cmm 11/08/2024 22:04 [facility] MPV 11.7 9.5 - 12.7 fL 11/08/2024 22:04 [facility] Blood VENOUS BLOOD / Unknown Venipuncture / Unknown 11/08/2024 6:32 EST 11/08/2024 6:32 EST us Carlota Jin MD HEMATOLOGY & PF4 ORDERABL ES Final Result [facility] [address] [place] [address] documented in this encounter Visit Diagnoses Diagnosis ESRD (end stage renal disease) ([facility] Primary End stage renal disease Hypoalbuminemia Other disorders of plasma protein metabolism Secondary hyperparathyroidism ([facility]) Secondary hyperparathyroidism (of renal origin) documented in this encounter Administered Medications Inactive Administered Medications - up to 3 most recent administrations Medication Order MAR Action Action Date Dose Rate Site calcium carbonate (TUMS) tablet 500 mg (200 mg elemental calcium) 2 Tablet 2 Tablet, oral, ONCE IN DIALYSIS, 1 dose, On Wed11/08/24 at 0645, Routine, DialysisIndications:ESRD (end stage renal disease) ([facility]),Secondary hyperparathyroidism ([facility]) Given 11/08/2024 6:50 EST 2 Tablets epoetin ken (EPOGEN) 20,000 unit/2 mL injection 5,000 Units 5,000 Units, intravenous, ONCE IN DIALYSIS, 1 dose, On Wed11/08/24 at 0645, Routine, DialysisIndications:ESRD (end stage renal disease) ([facility]) Given 11/08/2024 6:50 EST 5,000 Units heparin injection 3,000 Units 3,000 Units, intravenous, ONCE IN DIALYSIS, 1 dose, On Wed11/08/24 at 0645, Routine, Dialysis, Now x1 bolus 1500 units to be given at the beginning of dialysis 500 units/hour to be given over the course of dialysis (3000 units total). Stop 1 hour prior to end of treatment. To be administered per Policy [id number].Indications:ESRD (end stage renal disease) ([facility]) Given 11/08/2024 6:50 EST 3,000 Units LiquaCel liquid protein liquid 30 mL 30 mL, oral, ONCE IN DIALYSIS, 1 dose, On Wed11/08/24 at 0645, Patient's flavor preference: either, Routine, DialysisIndications:ESRD (end stage renal disease) ([facility]),Hypoalbuminemia Given 11/08/2024 6:50 EST 30 mL documented in this encounter Orders Medications Ordered That Davide ht Not Have Been Administered Count Last Ordered Date First Ordered Date sodium chloride 0.9 % BOLUS 100 mL 1 2024 Dialysis Count Last Ordered Date First Orde red Date HEMODIALYSIS 1 11/08/2024 documented in this encounter Care Teams Hogshead Roller Relationship Specialty Start Date End Date Ken Greer MD [address] [place] [address] PCP - General 07/07/23 Kiel Powers [facility] 05/31/24 documented as of this encounter
--- OUTSIDE RECORDS SUMMARY | 2024-12-05 11:54 | XMS_ITS | Encounter Summary ---
Author Organization Health system Address [address] [place] [address] Care Team Providers Care Email Operations Manager Name Role Phone Ken Greer MD Primary Care Provider [phone] Kiel Powers Unavailable Unavailable Reason for Visit * Episode Based Medications (Routine) - New Request Specialty Diagnoses / Procedures Referred By Nader gardiner Referred To Contact Diagnoses ESRD (end stage renal disease) ([facility]) Carlota Jin MD [address] [place] [address], [facility] [address] [place] [address] Phone: tel: fax: [facility] [place] [address] [place] [address] Phone: tel: fax: Referral ID Status Reason Start Date Expiration Date V isits Requested Visits Authorized [id number] New Request 03/17/2024 1 1 Encounter Details Date Type Department Care Team (Latest Contact Info) Description 11/15/2024 6:45 EST Treatment [facility] [address] [place] [id number] Carlota Jin MD [address] [place] [address], [facility] [address] [place] [address] ESRD (end stage renal disease) ([facility]) (Primary Dx); Secondary hyperparathyroidism ([facility]) Social History Tobacco Use Types Packs/Day Years Used Date Smoking Tobacco: Every Day Cigarettes 1 26.1 Started: 1998 Smokeless Tobacco: Never Alcohol Use Standard Drinks/Week Comments Yes 0 (1 standard drink = 0.6 oz pur e alcohol) Socially [facility] Utilities Answer Date Recorded In the [...] any time in the past 12 m [facility] were you homeless or living in a [place] facility (including now)? No 05/30/2024 [facility] - Inadequate Housing Answer Date Re corded What is your living situation today? I have a [facility] place to live 11/15/[address] you li ve. Do you have problems with any of the following? None of the above 11/15/2024 [facility] - Transportation Answer Date Record ed In the past 12 months, has l ack of reliable transportation kept you from medical appointments, meetings, work or from getting things needed for daily living? No 11/15/2024 [facility] - Personal Safety Answer Date Recor [...] or curse at you? Never 11/15/2024 [facility] - Financial Strain Answer Date Cornel rded How hard is it for you to pa y for the very basics like food, housing, medical care, and heating? Would you say it is: Not hard at all 11/15/2024 [facility] - Employment Answer Date Recorded Do you want help finding or keeping work or a job? I do not need or want help 11/15/2024 [facility] - Social Connections Answer Date Re corded If for any reason you need h elp with day-to-day activities such as bathing, preparing meals, shopping, managing finances, etc., do you get the help you need? I get all the help I need 11/15/2024 How often do you feel lonely or isolated from those around you? Never 11/15/2024 [facility] - Education Answer Date Recorded Do you speak a language other than Khmer at [facility]? No 11/15/2024 Do you want help with school or training? For example, starting or completing job training or getting a high school diploma, GED or equivalent. No 11/15/2024 [facility] - Physical Activity Answer Date Rec [...] your living situation today? I have a [facility] place to live 05/30/2024 Think about [...] - Temperature - - Respiratory Rate 16 11/15/2024 0625 EST Oxygen Saturation - - Inhaled Oxygen Concentration - - Weight 81.2 kg (179 lb 0.2 oz) 11/15/[address] Height - - Body Mass [...] Flowsheet Note - Marcela Cox RN - 11/15/2024 1114 EST 11/15/24 1042 Post-Hemodialysis Assessment Total Blood Processed (L) 90.39 Liters On Line Clearance: spKt/V 1.51 spKt/V Dialyzer Clearance Lightly streaked Treatment UFR (ml:kg:hr) 12.79 ml:kg:hr Final Critline Profile (%/hr) 0.12 Final Profile Profile A Fluid Removed (L) 4.3 L Post-Dialysis Scale Weight 94.4 kg (208 lb 1.8 oz) Wheelchair Weight 17.2 kg (37 lb 14.7 oz) Prosthesis Weight 0 kg (0 lb) Post-Treatment Weight (kg) 77.2 Treatment Weight Change (kg) 4 kg Day Target Weight (kg) 77.4 Post Sitting/Lying BP 186/84 Post Sitting/Lying pulse 64 Temp 36.6 ??C (97.9 ??F) Temp src Temporal Minutes Short -243 Post access assessment Bruit present: Yes Thrill Present AVF/AFG Hemostasis achieved Yes Note Patient held for 10mins with blue clamps and had no issues Orientation Alert and Oriented x3 [...] - [place] [address] [place], [place] [id number] Carlota Jin MD [address] [phone] 12/08/2024 6:45 EST Treatment [facility] [address] [place], [place] [id number] Carlota Jin MD [address] [place] [address], [address] [phone] 12/11/2024 6:45 EST Treatment [facility] [address] [place], [place] [id number] Carlota Jin MD [address] [place] [address], [facility] [address] [place] [phone] 12/13/2024 6:45 EST Treatment [facility] [address] [place], [place] [id number] Carlota Jin MD [address] [place] [address], [facility] 2 [place] [phone] 12/15/2024 6:45 EST Treatment [facility] [place] [address] [place], [place] [id number] Carlota Jin MD 1 [facility], [facility] 2 [place] [phone] 12/18/2024 6:45 EST Treatment [facility] [address] [place] [id number] Carlota Jin MD 1 [facility], [facility] 2 [place] [phone] 12/20/2024 6:45 EST Treatment [facility] [place] [address] [place], [place] [id number] Carlota Jin MD 1 [facility], [address] [phone] 12/22/2024 6:45 EST Treatment [facility] [address] [place], [place] [id number] Carlota Jin MD 1 [facility], [address] [phone] 12/25/2024 6:45 EST Treatment [facility] [place] [address] [place], [place] [id number] Carlota Jin MD [address] [facility], [address] [phone] 12/27/2024 6:45 EST Treatment [facility] [address] [place], [place] [id number] Carlota Jin MD [address] [facility], [facility] 2 [place] [phone] 12/29/2024 6:45 EST Treatment [facility] [address] [place], [place] [id number] Carlota Jin MD [address] [facility], [facility] 2 [place] [phone] 01/01/2025 6:45 EDT Treatment [facility] [address] [place], [place] [id number] Carlota Jin MD [address] [facility], [address] [phone] 01/03/2025 6:45 EDT Treatment [facility] [address] [place] [id number] Carlota Jin MD [address] [place] [address], [address] [phone] 01/05/2025 6:45 EDT Treatment [facility] [address] [place], [place] [id number] Carlota Jin MD [address] [facility], [facility] 2 [place] [phone] 01/08/2025 6:45 EDT Treatment [facility] [address] [place], [place] [id number] Carlota Jin MD [address] [facility], [facility] 2 [place] [phone] 01/10/2025 6:45 EDT Treatment [facility] [address] [place], [place] [id number] Carlota Jin MD [address] [facility], [facility] 2 [place] [phone] 01/12/2025 6:45 EDT Treatment [facility] [address] [place], [place] [id number] Carlota Jin MD [address] [facility], [facility] [address] [place] [phone] 01/15/2025 6:45 EDT Treatment [facility] [address] [place], [place] [id number] Carlota Jin MD [address] [facility], [facility] 2 [place] [phone] 01/17/2025 6:45 EDT Treatment [facility] [place] [address] [place], [place] [id number] Carlota Jin MD [address] [facility], [facility] [address] [place] [phone] 01/19/2025 6:45 EDT Treatment [facility] [address] [place], [place] [id number] Carlota Jin MD [address] [facility], [facility] 2 [place] [phone] 01/22/2025 6:45 EDT Treatment [facility] [address] [place], [place] [id number] Carlota Jin MD 1 [facility], [facility] 2 [place] [phone] 01/24/2025 6:45 EDT Treatment [facility] [address] [place], [place] [id number] Carlota Jin MD 1 [facility], [facility] 2 [place] [phone] 01/26/2025 6:45 EDT Treatment [facility] [address] [place], [place] [id number] Carlota Jin MD 1 [facility], [facility] 2 [place] [phone] 01/29/2025 6:45 EDT Treatment [facility] [address] [place], [place] [id number] Carlota Jin MD 1 [facility], [facility] 2 [place] [phone] 01/31/2025 6:45 EDT Treatment [facility] [address] [place] [id number] Carlota Jin MD 1 [facility], [facility] 2 [place] [phone] 02/02/2025 6:45 EDT Treatment [facility] [address] [place], [place] [id number] Carlota Jin MD 1 [facility], [facility] 2 [place] [phone] 02/05/2025 6:45 EDT Treatment [facility] [place] [address] [place], [place] [id number] Carlota Jin MD [address] [facility], [facility] 2 [place] [phone] 02/07/2025 6:45 EDT Treatment [facility] [address] [place], [place] [id number] Carlota Jin MD [address] [place] [address], [address] [phone] 02/09/2025 6:45 EDT Treatment [facility] [place] [address] [place], [place] [id number] Carlota Jin MD [address] [place] [address], [address] [phone] 02/12/2025 6:45 EDT Treatment [facility] [place] [address] [place], [place] [id number] Carlota Jin MD [address] [place] [address], [facility] 2 [place] [phone] 02/14/2025 6:45 EDT Treatment [facility] [place] [address] [place], [place] [id number] Carlota Jin MD 1 [facility], [facility] 2 [place] [phone] 02/16/2025 6:45 EDT Treatment [facility] [place] [address] [place], [place] [id number] Carlota Jin MD 1 [facility], Level [address] [place] [phone] 02/19/2025 6:45 EDT Treatment [facility] [place] [address] [place] [id number] Carlota Jin MD 1 [facility], [facility] 2 [place] [phone] 02/21/2025 6:45 EDT Treatment [facility] [address] [place] [address] Carlota Jin MD 1 [facility], [facility] 2 [place] [phone] documented as of this encounter Procedures Procedure Name Priority Date/Time Associated Diagnosis Comments COMPLETE BLOOD COUNT Routine 11/15/2024 6:33 EST ESRD (end stage renal disease) ([facility]) HEMODIALYSIS Routine 11/15/2024 6:25 EST ESRD (end stage renal disease) ([facility]) documented in this encounter Results * (ABNORMAL) COMPLETE BLOOD COUNT (11/15/2024 6:33 EST) WBC 9.14 4.00 - 10.40 K/cmm 11/15/2024 21:21 [facility] RBC 3.66(L) 4.36 - 5.78 M/cmm 11/15/2024 21:21 [facility] Hemoglobin 10.8(L) 13.8 - 17.3 g/dL 11/15/2024 21:21 [facility] HCT 34.5(L) 39.5 - 50.2 % 11/15/2024 21:21 [facility] MCV 94 81 - 95 fL 11/15/2024 21:21 [facility] MCH 29.5 27.6 - 33.0 pg 11/15/2024 21:21 [facility] MCHC 31.3(L) 32.8 - 36.4 g/dL 11/15/2024 21:21 [facility] RDW-CV 16.6(H) <14.2 % 11/15/2024 21:21 [facility] RDW-SD 57.2(H) <46.0 fl 11/15/2024 21:21 [facility] PLT 240 141 - 377 K/cmm 11/15/2024 21:21 [facility] MPV 11.8 9.5 - 12.7 fL 11/15/2024 21:21 [facility] Blood VENOUS BLOOD / Unknown Venipuncture / Unknown 11/15/2024 6:33 EST 11/15/2024 6:33 EST us Carlota Jin MD HEMATOLOGY & PF4 ORDERABL ES Final Result [facility] [address] [place] [address] documented in this encounter Visit Diagnoses Diagnosis ESRD (end stage renal disease) ([facility])- Primary End stage renal disease Secondary hyperparathyroidism ([facility]) Secondary hyperparathyroidism (of renal origin) documented in this encounter Administered Medications Inactive Administered Medications - up to 3 most recent administrations Medication Order MAR Action Action Date Dose Rate Site amino acids-protein hydrolysate (LiquaCel) 16 gram-100 kcal/30 mL liquid in packet 30 mL 30 mL, oral, ONCE IN DIALYSIS, 1 dose, On Wed11/15/24 at 0645, RoutineIndications:ESRD (end stage renal disease) ([facility]) Given 11/15/2024 6:44 EST 30 mL calcium carbonate (TUMS) tablet 500 mg (200 mg elemental calcium) 2 Tablet 2 Tablet, oral, ONCE IN DIALYSIS, 1 dose, On Wed11/15/24 at 0645, Routine, DialysisIndications:ESRD (end stage renal disease) ([facility]),Secondary hyperparathyroidism ([facility]) Given 11/15/2024 6:44 EST 2 Tablets epoetin ken (EPOGEN) 20,000 unit/2 mL injection 5,000 Units 5,000 Units, intravenous, ONCE IN DIALYSIS, 1 dose, On Wed11/15/24 at 0645, Routine, DialysisIndications:ESRD (end stage renal disease) ([facility]) Given 11/15/2024 6:45 EST 5,000 Units heparin injection 3,000 Units 3,000 Units, intravenous, ONCE IN DIALYSIS, 1 dose, On Wed11/15/24 at 0645, Routine, Dialysis, Now x1 bolus 1500 units to be given at the beginning of dialysis 500 units/hour to be given over the course of dialysis (3000 units total). Stop 1 hour prior to end of treatment. To be administered per Policy [id number].Indications:ESRD (end stage renal disease) ([facility]) Given 11/15/2024 6:44 EST 3,000 Units documented in this encounter Orders Dialysis Count Last Ordered Date First Orde red Date HEMODIALYSIS 1 11/15/2024 documented in this encounter Care Teams Email Operations Manager Relationship Specialty Start Date End Date Ken Greer MD [address] [place] [address] PCP - General 07/07/23 Kiel Powers Eeg Tech Nephrology 05/31/24 documented as of this encounter
--- OUTSIDE RECORDS SUMMARY | 2024-12-05 11:54 | XMS_ITS | Encounter Summary ---
Author Organization [facility] Address [address] [place] [address] Care Team Providers Care Manager Care Name Role Phone Ken Greer MD Primary Care Provider Kiel Powers Unavailable Unavailable Encounter Details Date Type Department Care Team (Late st Contact Info) Description 11/08/2024 Documentation Visit [facility] [address] [place], [place] [id number] Marcela Cox, RN Social History Tobacco Use Types Packs/Day Years Used Date Smoking Tobacco: Every Day Cigarettes 1 26.1 Started: 1998 Smokeless Tobacco: Never Alcohol Use Standard Drinks/Week Comments Yes 0 (1 standard drink = 0.6 oz pur e alcohol) Socially [facility] Utilities Answer Date Recorded In [...] any time in the past 12 m [facility], were you homeless or living in a fci (including now)? No 05/30/2024 Interpersonal Safety Answer Date Record ed How often does anyone, martin lyons family, hit, punch or physically hurt you? 05/30/2024 How often does anyone, martin lyons family, insult, scream, curse or threaten to hurt you? 05/30/2024 Living Situation Answer Date Recorded What is your living situation today? I have a [facility] place to live 05/30/2024 Think about [...] harm? Never 05/30/2024 How often does anyone, mratin lyons family and friends, scream or curse [...] Yes 05/30/2024 18:25 EDT Daria Fonseca RN documented as of this encounter Mental Status * Because of a physical, mental, or emotional condition, do you have serious difficulty concentrating, remembering, or making decisions? (5 years old or older) Answer Entry Date Author No 05/30/2024 18:25 EDDaria Whitfield RN documented in this encounter Progress Notes * Marcela Cox RN - 11/08/2024 1108 EST 11/08/24 11:10 [facility] MEDICATION RECONCILIATION Medication review of home medications (prescriptions, vaix-jgc-xquzpwn, herbals, vitamin/mineral/dietary (nutritional) supplements, medical marijuana, and [...] Vitamin D3, 25 mcg (1,000 unit) tablet dilTIAZem (CARDIZEM CD) 120 mg capsule DULoxetine (CYMBALTA) 20 mg delayed release capsule HYDROmorphone (DILAUDID) 2 mg tablet insulin aspart U-100 (NOVOLOG FLEXPEN) 100 unit/mL (3 mL) injectable pen insulin glargine 100 unit/mL (3 mL) injection pen insulin pen needles 32G x 5/32 pantoprazole (PROTONIX) 40 mg tablet polyethylene glycol 3350 (MIRALAX) 17 gram packet pregabalin (LYRICA) 100 mg capsule SUSY-LOCO 0.8 mg tablet senna-docusate (SENNA PLUS) 8.6-50 mg per tablet sevelamer carbonate (RENVELA) 800 mg tablet sodium zirconium cyclosilicate (LOKELMA) 10 gram powder in packet tiZANidine (ZANAFLEX) 4 mg tablet torsemide (DEMADEX) 100 mg tablet No current facility-administered medications for this visit. Facility-Administered Medications Ordered in Other Visits Medication Route Frequency sodium chloride 0.9 % BOLUS 100 mL intravenous PRN Marcela Cox RN documented in this encounter Plan of Treatment Upcoming Encounters Date Type Department Care Team (Late st Contact Info) Description 12/06/2024 6:45 EST Treatment [facility] [address] [place], [place] [id number] Carlota Jin MD 1 [facility] [address] [place] [phone] 12/08/2024 6:45 EST Treatment [facility] [address] [place] [id number] Carlota Jin MD 1 [facility] [address] [place] [phone] 12/11/2024 6:[address] [facility] [place] [address] [place], [place] [address] Carlota Jin MD 1 [facility] [address] [place] [phone] 12/13/2024 6:[address] [facility] [place] [address] [place] [address] Carlota Jin MD 1 [facility] [address] [place] [phone] 12/15/2024 6:[address] [facility] [place] [address] [place], [place] [address] [phone] Carlota Jin MD 1 [facility] [address] [place] [phone] 12/18/2024 6:[address] [facility] [place] [address] [place] [address] Carlota Jin MD 1 [facility] [address] [place] [phone] 12/20/2024 6:[address] [facility] [place] [address] [place], [place] [id number] Carlota Jin MD 1 [facility] [address] [place] [phone] 12/22/2024 6:[address] [facility] [place] [address] [place], [place] [address] Carlota Jin MD 1 [facility] [address] [place] [phone] 12/25/2024 6:[address] [facility] [place] [address] [place], [place] [id number] Carlota Jin MD 1 [facility], [address] [phone] 12/27/2024 6:[address] [facility] [place] [address] [place], [place] [phone] Carlota Jin MD 1 [facility] [address] [place] [phone] 12/29/2024 6:[address] [facility] [place] [address] [place], [place] [id number] Carlota Jin MD 1 [facility], [address] [phone] 01/01/2025 6:[address] [facility] [place] [address] [place], [place] [id number] Carlota Jin MD 1 [facility] [address] [place] [phone] 01/03/2025 6:[address] [facility] [place] [address] [place], [place] [address] Carlota Jin MD 1 [facility] [address] [place] [phone] 01/05/2025 6:[address] [facility] [place] [address] [place], [place] [id number] Carlota Jin MD 1 [facility] [address] [place] [phone] 01/08/2025 6:[address] [facility] [place] [address] [place], [place] [id number] Carlota Jin MD 1 [facility], [address] [phone] 01/10/2025 6:[address] [facility] [place] [address] [place], [place] [id number] Carlota Jin MD [address] [place] [address], [address] [phone] 01/12/2025 6:[address] [facility] [place] [address] [place], [place] [id number] Carlota Jin MD [address] [place] [address], [facility] [address] [place] [phone] 01/15/2025 6:[address] [facility] [place] [address] [place], [place] [id number] Carlota Jin MD 1 [facility] [address] [place] [phone] 01/17/2025 6:[address] [facility] [place] [address] [place], [place] [address] Carlota Jin MD 1 [facility] [address] [place] [phone] 01/19/2025 6:[address] [facility] [place] [address] [place], [place] [phone] Carlota Jin MD 1 [facility] [address] [place] [phone] 01/22/2025 6:[address] [facility] [place] [address] [place], [place] [id number] Carlota Jin MD 1 [facility] [address] [place] [phone] 01/24/2025 6:[address] [facility] [place] [address] [place], [place] [id number] Carlota Jin MD 1 [facility] [address] [place] [phone] 01/26/2025 6:[address] [facility] [place] [address] [place], [place] [phone] Carlota Jin MD 1 [facility] [address] [place] [phone] 01/29/2025 6:[address] [facility] [place] [address] [place], [place] [phone] Carlota Jin MD 1 [facility] 2 [place] [phone] 01/31/2025 6:[address] [facility] [place] [address] [place], [place] [id number] Carlota Jin MD 1 [facility] [address] [place] [phone] 02/02/2025 6:[address] [facility] [place] [address] [place], [place] [id number] Carlota Jin MD 1 [facility] [address] [place] [phone] 02/05/2025 6:[address] [facility] [place] [address] [place], [place] [phone] Carlota Jin MD 1 [facility] [address] [place] [phone] 02/07/2025 6:[address] [facility] [address] [place] [address] Carlota Jin MD 1 [facility] [address] [place] [phone] 02/09/2025 6:[address] [facility] [address] [place], [place] [phone] Carlota Jin MD 1 [facility] [address] [place] [phone] 02/12/2025 6:[address] [facility] [place] [address] [place], [place] [phone] Carlota Jin MD [address] [place] [phone] 02/14/2025 6:[address] [facility] [place] [address] [place], [place] [id number] Carlota Jin MD [address] [place] [phone] 02/16/2025 6:[address] [facility] [place] [address] [place], [place] [phone] Carlota Jin MD [address] [place] [phone] 02/19/2025 6:[address] [facility] [place] [address] [place], [place] [phone] Carlota Jin MD [address] [place] [phone] 02/21/2025 6:[address] [facility] [place] [address] [place], [place] [id number] Carlota Jin MD [address] [place] [phone] documented as of this encounter Visit Diagnoses Not on filedocumented in this encounter Care Teams Manager Care Relationship Specialty Start Date End Date Ken Greer MD [address] [place] [address] PCP - General 07/07/23 Kiel Powers [facility] Manager Nephrology 05/31/24 documented as of this encounter
--- OUTSIDE RECORDS SUMMARY | 2024-12-05 11:54 | XMS_ITS | Encounter Summary ---
Author Organization [facility] Address [address] [place] [address] Care Team Providers Care Salesperson Hearing Aids Name Role Phone Ken Greer MD Primary Care Provider [phone] Kiel Powers Unavailable Unavailable Encounter Details Date Type Department Care Team (Late st Contact Info) Description 10/30/2024 Documentation Visit [facility] [address] [place] [address] Alexa Estrada, [facility] [address] [place] [address] Social History Tobacco Use Types Packs/Day Years Used Date Smoking Tobacco: Every Day Cigarettes 1 26.1 Started: 1998 Smokeless Tobacco: Never Alcohol Use Standard Drinks/Week Comments Yes 0 (1 standard drink = 0.6 oz pur e alcohol) Socially [facility] Utilities Answer Date Recorded In the past 12 months has [facility] [place], gas, oil, or water [employer] threatened to shut off services in your [...] your living situation today? I have a [facility] place to live 05/30/[address] you li ve. Do you have problems with any of the following? None of the above 05/30/2024 Interpersonal Safety Answer Date Record ed How often does anyone, martin lyons family and friends, physically hurt you? Never 05/30/2024 How often does anyone, christineu ding family and friends, insult or talk down to you? Never 05/30/2024 How often does anyone, inclu eloy family and friends, threaten you with harm? Never 05/30/2024 How often does anyone, inclu ding family and friends, scream or curse at [...] th e electric, gas, oil, or water [employer] threatened to shut off services in your [...] documented in this encounter Progress Notes * Alexa Estrada, VP SALES - 10/30/2024 1359 EST [employer] Monthly Assessment UPDATE: SW met with pts prior to dialysis (pt sleeps through dialysis and his manages all of his care). She is still working on paperwork for choices for care, but sent them back more documentationyesterday- she thinks that she will be approved for [facility] funding soon. SHANNON will continue to follow and remain available. Current Living Situation: Lives with family and Lives with friends Lives with family Pt lives with his , Hoda, in their apartment in [place]. He rents the apartment and has a shared kitchen with the other tenant. The apartment has a back entry to his room and bathroom, but in order to get to the kitchen he has to go up 13 stairs which is difficult due to knee pain. He has land which he is planning on building a home on. Transportation Status: Transportation: Drives Self Payor: Receives [employer] mileage reimbursement. 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 Hospitalization in Previous 3 Months: Yes, 03/13-03/14; 02/17-02/24; 04/20-04/29 Emergency Room Visit in Previous 3 Months: Yes Mental Health: Change in cognitive function? No Current or past mental health issues including feelings of anxiety or depression: Yes: anxiety Previous mental health diagnosis? No Past or current suicidal thinking/attempt? No Current emotional status: Difficulties in coping, Reports anxiety, Reports depression, Reports new stressors How does patient manage mental health: Pt utilizes medication for anxiety Patient/Family Strengths: Pt is friendly and engaging Interests/Spiritual/Taoism Practice: No spiritual practices Depression Screening: Is patient eligible to complete the PHQ-9: Yes: PHQ-2 = Date patient last offered the PHQ-9: 12/03/23 KDQOL: KDQOL survey completion status: Refused Reason for not completing KDQOL: See above Financial/Insurance: Patient has Insurance: Yes Payor: [facility] MEDIC[facility] / Plan: [facility] [employer] / Product Type: Medicare Advantage GL / Prescription Coverage: Yes Changes in insurance coverage since last assessment: No Patient has pending insurance applications: No Patient has been educated on Medicare eligibility due to ESRD: No: pt already has Medicare Current income source: Retired Patient has financial concerns: Yes: pt reports significant financial hardship Education: Highest level of education: high school diploma/GED Employment: Current Employment Status: Unemployed Desire to attend school/work: No Physically able to work: No Referred to vocational rehab/training: No Advance Directives: Patient has Advance Directive: No: Advance Directive education provided? Yes: Appointed Healthcare Agent? No Patient Concerns: Financial concerns and Insurance Level of Understanding/Involvement: Attends prescribed dialysis treatment sessions: Yes Challenges with fluid/dietary prescription? No Challenges with medication management? No Comment: Pt attends dialysis regularly Comment: SW will continue to follow. documented in this encounter Plan of Treatment Upcoming Encounters Date Type Department Care Team (Late st Contact Info) Description 12/06/2024 6:45 EST Treatment [facility] [place] [address] [place], [place] [id number] Carlota Jin MD [address] [phone] 12/08/2024 6:45 EST Treatment [facility] [place] [address] [place], [place] [id number] Carlota Jin MD [address] [phone] 12/11/2024 6:45 EST Treatment [facility] [place] [address] [place], [place] [id number] Carlota Jin MD [address] [phone] 12/13/2024 6:45 EST Treatment [facility] [place] [address] [place], [place] [id number] Carlota Jin MD [address] [place] [phone] 12/15/2024 6:45 EST Treatment [facility] [place] [address] [place], [place] [id number] Carlota Jin MD [address] [phone] 12/18/2024 6:45 EST Treatment [facility] [place] [address] [place], [place] [id number] Carlota Jin MD 1 [facility] 2 [place] [phone] 12/20/2024 6:45 EST Treatment [facility] [place] [address] [place], [place] [id number] Carlota Jin MD 1 [facility] 2 [place] [phone] 12/22/2024 6:45 EST Treatment [facility] [place] [address] [place] [id number] Carlota Jin MD 1 [facility], [facility] 2 [place] [phone] 12/25/2024 6:45 EST Treatment [facility] [place] [address] [place] [id number] Carlota Jin MD 1 [facility] 2 [place] [phone] 12/27/2024 6:45 EST Treatment [facility] [place] [address] [place], [place] [id number] Carlota Jin MD 1 [facility] [address] [place] [phone] 12/29/2024 6:45 EST Treatment [facility] [place] [address] [place], [place] [id number] Carlota Jin MD 1 [facility], [address] [phone] 01/01/2025 6:45 EDT Treatment [facility] [place] [address] [place], [place] [id number] Carlota Jin MD 1 [facility], [address] [phone] 01/03/2025 6:45 EDT Treatment [facility] [place] [address] [place], [place] [id number] Carlota Jin MD [address] [facility], [address] [phone] 01/05/2025 6:45 EDT Treatment [facility] [place] [address] [place], [place] [id number] Carlota Jin MD [address] [phone] 01/08/2025 6:45 EDT Treatment [facility] [place] [address] [place], [place] [id number] Carlota Jin MD [address] [phone] 01/10/2025 6:45 EDT Treatment [facility] [place] [address] [place], [place] [id number] Carlota Jin MD [address] [facility], [address] [phone] 01/12/2025 6:45 EDT Treatment [facility] [place] [address] [place], [place] [id number] Carlota Jin MD 1 [facility] 2 [place] [phone] 01/15/2025 6:45 EDT Treatment [facility] [place] [address] [place], [place] [id number] Carlota Jin MD [address] [facility], [facility] 2 [place] [phone] 01/17/2025 6:45 EDT Treatment [facility] [place] [address] [place], [place] [id number] Carlota Jin MD [address] [facility], [address] [phone] 01/19/2025 6:45 EDT Treatment [facility] [place] [address] [place], [place] [id number] Carlota Jin MD [address] [facility], [facility] [address] [place] [phone] 01/22/2025 6:45 EDT Treatment [facility] [place] [address] [place], [place] [id number] Carlota Jin MD [address] [facility], [facility] [address] [place] [phone] 01/24/2025 6:45 EDT Treatment [facility] [place] [address] [place], [place] [id number] Carlota Jin MD [address] [facility], [facility] 2 [place] [phone] 01/26/2025 6:45 EDT Treatment [facility] [place] [address] [place], [place] [id number] Carlota Jin MD 1 [facility], [address] [phone] 01/29/2025 6:45 EDT Treatment [facility] [place] [address] [place], [place] [id number] Carlota Jin MD 1 [facility], [address] [phone] 01/31/2025 6:45 EDT Treatment [facility] [place] [address] [place], [place] [id number] Carlota Jin MD 1 [facility], [address] [phone] 02/02/2025 6:45 EDT Treatment [facility] [place] [address] [place], [place] [id number] Carlota Jin MD [address] [facility], [address] [phone] 02/05/2025 6:45 EDT Treatment [facility] [place] [address] [place], [place] [id number] Carlota Jin MD 1 [facility] [address] [place] [phone] 02/07/2025 6:45 EDT Treatment [facility] [place] [address] [place], [place] [id number] Carlota Jin MD 1 [facility], [facility] 2 [place] [phone] 02/09/2025 6:45 EDT Treatment [facility] [place] [address] [place], [place] [id number] Carlota Jin MD [address] [facility], [facility] 2 [place] [phone] 02/12/2025 6:45 EDT Treatment [facility] [place] [address] [place] [id number] Carlota Jin MD 1 [facility], [facility] 2 [place] [phone] 02/14/2025 6:45 EDT Treatment [facility] [address] [place] [id number] Carlota Jin MD 1 [facility] 2 [place] [phone] 02/16/2025 6:45 EDT Treatment [facility] [address] [place], [place] [id number] Carlota Jin MD [address] [facility], [facility] 2 [place] [phone] 02/19/2025 6:45 EDT Treatment [facility] [address] [place], [place] [id number] Carlota Jin MD [address] [facility], [facility] 2 [place] [phone] 02/21/2025 6:45 EDT Treatment [facility] [address] [place], [place] [id number] Carlota Jin MD [address] [place] [address], [facility] [address] [place] [phone] documented as of this encounter Visit Diagnoses Not on filedocumented in this encounter Care Teams Salesperson Hearing Aids Relationship Specialty Start Date End Date Ken Greer MD [facility] [place] [id number] PCP - General 07/07/23 Kiel Powers Nitriles Lab Technician Nephrology 05/31/24 documented as of this encounter
--- OUTSIDE RECORDS SUMMARY | 2024-12-05 11:54 | XMS_ITS | Encounter Summary ---
Author Organization [facility] Address [address] [place] [address] Care Team Providers Care Crime Scene Photographer Name Role Phone Ken Greer MD Primary Care Provider [phone] Kiel Powers Unavailable Unavailable Reason for Visit * Episode Based Medications (Routine) - New Request Specialty Diagnoses / Procedures Referred By Nader gardiner Referred To Contact Diagnoses ESRD (end stage renal disease) ([facility]) Carlota Jin MD [address] [place] [address], [facility] [address] [place] [address] Phone: tel: fax: [facility] [place] [address] [place] [address] Phone: tel: fax: Referral ID Status Reason Start Date Expiration Date V isits Requested Visits Authorized [id number] New Request 03/17/2024 1 1 Encounter Details Date Type Department Care Team (Latest Contact Info) Description 10/30/2024 6:45 EST Treatment [facility] [address] [place] [id number] Carlota Jin MD [address] [place] [address], [facility] [address] [place] [address] ESRD (end stage renal disease) ([facility]) (Primary Dx); Secondary hyperparathyroidism (HCC-CMS); Hypoalbuminemia Social History Tobacco Use Types Packs/Day Years Used Date Smoking Tobacco: Every Day Cigarettes 1 26.1 Started: 1998 Smokeless Tobacco: Never Alcohol Use Standard Drinks/Week Comments Yes 0 (1 standard drink = 0.6 oz pur e alcohol) Socially [facility] Utilities Answer Date Recorded In the past [...] were you homeless or living in a chcf (including now)? No 05/30/2024 Interpersonal Safety Answer [...] the past 12 months has th e [employer], gas, oil, or water [employer] threatened to shut off services in your [...] - Temperature - - Respiratory Rate 16 10/30/2024 0622 EST Oxygen Saturation - - Inhaled Oxygen Concentration - - Weight 81.1 kg (178 lb 12.7 oz) 10/30/2024 0629 EST Height - - Body Mass Index 25.65 07/20/2024 1359 EDT documented in this encounter [...] Flowsheet Note - Marcela Cox RN - 10/30/2024 1307 EST 10/30/24 1055 Post-Hemodialysis Assessment Total Blood Processed (L) 91.29 Liters On Line Clearance: spKt/V 1.52 spKt/V Dialyzer Clearance Lightly streaked Treatment UFR (ml:kg:hr) 12.81 ml:kg:hr Critline refill Not done Fluid Removed (L) 4.3 L Post-Dialysis Scale Weight 94.3 kg (207 lb 14.3 oz) Wheelchair Weight 17.2 kg (37 lb 14.7 oz) Prosthesis Weight 0 kg (0 lb) Post-Treatment Weight (kg) 77.1 Treatment Weight Change (kg) 4 kg Day Target Weight (kg) 77.3 Post Sitting/Lying BP 186/69 Post Sitting/Lying pulse 66 Temp 36.6 ??C (97.9 ??F) Temp src Temporal Minutes Short -243 Post access assessment AVF/AFG Hemostasis achieved Yes Note 10 min hold w/clamps Orientation Alert and Oriented x3 Yes Time Yes Place Yes Person Yes Cooperative Yes Disoriented No Discharge Ambulation Methods Departs via w/c;With patient transport Wrap up items Patient Response to Treatment Tolerated tx well. Removed 4.3L UF goal without difficulty. Comments No issues during tx, no concerns voiced post tx. (new Dapte BS monitor in place,no alarms noted with highs or lows throughout tx) documented in this encounter Plan of Treatment Upcoming Encounters Date Type Department Care Team (Late st Contact Info) Description 12/06/2024 6:45 EST Treatment [facility] [place] [address] [place], [place] [phone] Carlota Jin MD 1 [facility], [facility] [address] [place] [phone] 12/08/2024 6:45 EST Treatment [facility] [place] [address] [place], [place] [id number] Carlota Jin MD [address] [phone] 12/11/2024 6:45 EST Treatment [facility] [place] [address] [place], [place] [phone] Carlota Jin MD 1 [facility], [address] [phone] 12/13/2024 6:45 EST Treatment [facility] [place] [address] [place], [place] [phone] Carlota Jin MD [address] [phone] 12/15/2024 6:45 EST Treatment [facility] [place] [address] [place], [place] [phone] Carlota Jin MD [address] [phone] 12/18/2024 6:45 EST Treatment [facility] [place] [address] [place], [place] [id number] Carlota Jin MD 1 [facility], [facility] [address] [place] [phone] 12/20/2024 6:45 EST Treatment [facility] [place] [address] [place], [place] [id number] Carlota Jin MD 1 [facility], [facility] [address] [place] [phone] 12/22/2024 6:45 EST Treatment [facility] [address] [place], [place] [phone] Carlota Jin MD 1 [facility], [facility] [address] [place] [phone] 12/25/2024 6:45 EST Treatment [facility] [address] [place], [place] [address] Carlota Jin MD 1 [facility], [facility] [address] [place] [phone] 12/27/2024 6:45 EST Treatment [facility] [address] [place], [place] [phone] Carlota Jin MD 1 [facility], [facility] [address] [place] [phone] 12/29/2024 6:45 EST Treatment [facility] [address] [place], [place] [phone] Carlota Jin MD 1 [facility], [facility] [address] [place] [phone] 01/01/2025 6:45 EDT Treatment [facility] [place] [address] [place] [address] Carlota Jin MD 1 [facility], [facility] [address] [place] [phone] 01/03/2025 6:45 EDT Treatment [facility] [place] [address] [place], [place] [id number] Carlota Jin MD 1 [facility], [facility] [address] [place] [phone] 01/05/2025 6:45 EDT Treatment [facility] [place] [address] [place], [place] [phone] Carlota Jin MD 1 [facility], [facility] [address] [place] [phone] 01/08/2025 6:45 EDT Treatment [facility] [place] [address] [place], [place] [id number] Carlota Jin MD 1 [facility], [facility] [address] [place] [phone] 01/10/2025 6:45 EDT Treatment [facility] [place] [address] [place], [place] [id number] Carlota Jin MD 1 [facility], [facility] [address] [place] [phone] 01/12/2025 6:45 EDT Treatment [facility] [place] [address] [place], [place] [id number] Carlota Jin MD 1 [facility], [facility] [address] [place] [phone] 01/15/2025 6:45 EDT Treatment [facility] [place] [address] [place], [place] [phone] Carlota Jin MD [address] [place] [address], [facility] [address] [place] [phone] 01/17/2025 6:45 EDT Treatment [facility] [address] [place], [place] [phone] Carlota Jin MD [address] [place] [address], [address] [phone] 01/19/2025 6:45 EDT Treatment [facility] [address] [place], [place] [id number] Carlota Jin MD [address] [place] [address], [facility] [address] [place] [phone] 01/22/2025 6:45 EDT Treatment [facility] [address] [place], [place] [phone] Carlota Jin MD 1 [facility], [facility] [address] [place] [phone] 01/24/2025 6:45 EDT Treatment [facility] [place] [address] [place], [place] [address] Carlota Jin MD 1 [facility], [facility] [address] [place] [phone] 01/26/2025 6:45 EDT Treatment [facility] [place] [address] [place], [place] [phone] Carlota Jin MD 1 [facility], [facility] [address] [place] [phone] 01/29/2025 6:45 EDT Treatment [facility] [place] [address] [place], [place] [id number] Carlota Jin MD 1 [facility], [address] [phone] 01/31/2025 6:45 EDT Treatment [facility] [place] [address] [place], [place] [phone] Carlota Jin MD [address] [phone] 02/02/2025 6:45 EDT Treatment [facility] [place] [address] [place], [place] [id number] Carlota Jin MD [address] [phone] 02/05/2025 6:45 EDT Treatment [facility] [place] [address] [place], [place] [id number] Carlota Jin MD 1 [facility], [address] [place] [phone] 02/07/2025 6:45 EDT Treatment [facility] [place] [address] [place], [place] [phone] Carlota Jin MD 1 [facility], [facility] [address] [place] [phone] 02/09/2025 6:45 EDT Treatment [facility] [place] [address] [place], [place] [phone] Carlota Jin MD 1 [facility], [facility] [address] [place] [phone] 02/12/2025 6:45 EDT Treatment [facility] [place] [address] [place], [place] [phone] Carlota Jin MD 1 [facility], [facility] [address] [place] [phone] 02/14/2025 6:45 EDT Treatment [facility] [place] [address] [place] [address] Carlota Jin MD 1 [facility], [facility] [address] [place] [phone] 02/16/2025 6:45 EDT Treatment [facility] [address] [place], [place] [id number] Carlota Jin MD 1 [facility], [facility] [address] [place] [phone] 02/19/2025 6:45 EDT Treatment [facility] [place] [address] [place], [place] [phone] Carlota Jin MD 1 [facility], Level [address] [place] [phone] 02/21/2025 6:45 EDT Treatment [facility] [place] [address] [place], [place] [phone] Carlota Jin MD 1 [facility], [facility] [address] [place] [phone] documented as of this encounter Procedures Procedure Name Priority Date/Time Associated Diagnosis Comments POSTDIALYSIS BUN WITH URR CALCULATION Routine 10/30/2024 11:05 EST ESRD (end stage renal disease) ([facility]) TRANSFERRIN SATURATION Routine 10/30/2024 6:47 EST ESRD (end stage renal disease) ([facility]) VITAMIN D (25,[place]) Routine 10/30/2024 6:4 7 EST ESRD (end stage renal disease) ([facility]) DIALYSIS ROUTINE - DIALYSIS ONLY (BUN, K, NA, CL, CO2, SANJEEV, ALB, MG, PHOS, ALKP, AST) Routine 10/30/2024 6:47 EST ESRD (end stage renal disease) ([facility]) PROFILE IRON STUDIES (INCLUDES IRON, IBC, AND FERRITIN) Routine 10/30/2024 6:47 EST ESRD (end stage renal disease) ([facility]) DIALYSIS HEPATITIS- DIALYSIS USE ONLY Routine 10/30/2024 6:47 EST ESRD (end stage renal disease) ([facility]) PTH INTACT Routine 10/30/2024 6:47 EST ESRD (end stage renal disease) ([facility]) Secondary hyperparathyroidism ([facility]) FOLATE Routine 10/30/2024 6:47 EST ESRD (end stage renal disease) ([facility]) FERRITIN Routine 10/30/2024 6:47 EST ESRD (end stage renal disease) ([facility]) VITAMIN B12 Routine 10/30/2024 6:47 EST ESRD (end stage renal disease) ([facility]) HEMODIALYSIS Routine 10/30/2024 6:22 EST ESRD (end stage renal disease) ([facility]) documented in this encounter Results * (ABNORMAL) POSTDIALYSIS BUN WITH URR CALCULATION (10/30/2024 11:05 EST) BUN, Postdialysis 22 10 - 26 mg/dL 10/30/2024 21:51 [facility] Urea Reduction Rate 68.6 Not Established % 10/30/2024 21:51 [facility] Comment: NOTE: Reference range not established for Urea Reduction Rate. BUN 70(H) 10 - 26 mg/dL 10/30/2024 21:51 [facility] Blood VENOUS BLOOD / Unknown Venipuncture / Unknown 10/30/2024 11:05 EST 10/30/2024 11:05 EST Carlota Jin MD CHEMISTRY & BLOOD GAS ORD ERABLES Final Result [facility] [address] [place] [address] * (ABNORMAL) FERRITIN (10/30/2024 6:47 EST) Ferritin 339(H) 22 - 322 ng/mL 10/30/2024 23:21 [facility] Blood VENOUS BLOOD / Unknown Venipuncture / Unknown 10/30/2024 6:47 EST 10/30/2024 6:47 EST us Carlota Jin MD CHEMISTRY & BLOOD GAS ORD ERABLES Final Result Performing Organization Address [facility]/ZIP Co de Phone Number [facility] [address] [place] [address] * (ABNORMAL) TRANSFERRIN SATURATION (10/30/2024 6:47 EST) Iron 38(L) 49 - 181 ??g/dL 10/30/2024 21:59 EST [facility] Iron Binding Capacity 216(L) 240 - 450 ??g/dL 10/30/2024 21:59 EST [facility] Transferrin Saturation 18 15 - 45 % 10/30/2024 21:59 EST [facility] Blood VENOUS BLOOD / Unknown Venipuncture / Unknown 10/30/2024 6:47 EST 10/30/2024 6:47 EST Result [facility] Carlota Jin MD CHEMISTRY & BLOOD GAS ORD ERABLES Final Result Performing Organization Address [facility] Co de Phone Number [facility] [address] [place] [address] * (ABNORMAL) VITAMIN D (25,[place]) (10/30/2024 6:47 EST) 25OH Vitamin D Tot 28(L) 30 - 100 ng/mL 10/31/2024 10:53 [facility] Comment: Vitamin D 25,OH Interpretive Ranges: Deficiency: ??<10.0 ng/mL Insufficiency: ??10.0 - 30.0 ng/mL Sufficiency: ??30.0 - 100.0 ng/mL Toxicity: ??>100.0 ng/mL Blood VENOUS BLOOD / Unknown Venipuncture / Unknown 10/30/2024 6:47 EST 10/30/2024 6:47 EST Result [facility] us Carlota Jin MD CHEMISTRY & BLOOD GAS ORD ERABLES Final Result Performing Organization Address City/[facility] Co de Phone Number [facility] [address] [place] [address] * VITAMIN B12 (10/30/2024 6:47 EST) [facility] Vitamin B12 342 211 - 911 pg/mL 10/30/2024 23:31 EST [facility] Blood VENOUS BLOOD / Unknown Venipuncture / Unknown 10/30/2024 6:47 EST 10/30/2024 6:47 EST Carlota Jin MD CHEMISTRY & BLOOD GAS ORD ERABLES Final Result Performing Organization Address [facility] de Phone Number [facility] [address] [place] [address] * FOLATE (10/30/2024 6:47 EST) [facility] Folate >24.0 See Note ng/mL 10/30/2024 23:12 EST [facility] Comment: Reference Ranges for [...] ORD ERABLES Final Result Performing Organization Address [facility] Co de Phone Number [facility] [address], [place] [phone] * DIALYSIS HEPATITIS- DIALYSIS USE ONLY (10/30/2024 6:47 EST) [facility] Hep B Surface Ag Negative Negative 10/31/19 11:36 EST [facility] Hep B Surface Ab, Quantitative 140.6 See Note mIU/mL 10/31/2024 11:36 [facility] Comment: Reference Range for Hep B Surface Ab, Quant: Positive: >= 10.0 mIU/mL Negative: ??< 10.0 mIU/mL Patient is presumed to be immune to infection with Hepatitis B Virus. Hep B Surface Ab, Qualitative Positive See Note 10/31/2024 11:36 [facility] Comment: Reference Range for Hep B Surface Ab, Qual: Unvaccinated: ??Negative Vaccinated: ??Positive Hepatitis B Core Ab, Total Negative Negative 10/31/2024 11:36 [facility] Hep C Antibody Negative Negative 10/31/2024 11:36 [facility] Blood VENOUS BLOOD / Unknown Venipuncture / Unknown 10/30/2024 6:47 EST 10/30/2024 6:47 EST Carlota Jin MD CHEMISTRY & BLOOD GAS ORD ERABLES Final Result Performing Organization Address [facility] Co de Phone Number [facility] [address] [place] [address] * (ABNORMAL) PTH INTACT (10/30/2024 6:47 EST) Intact PTH 641.9(H) 19.0 - 88.0 pg/mL 10/30/2024 23:18 EST [facility] Blood VENOUS BLOOD / Unknown Venipuncture / Unknown 10/30/2024 6:47 EST 10/30/2024 6:47 EST Carlota Jin MD CHEMISTRY & BLOOD GAS ORD ERABLES Final Result Performing Organization Address [facility]/ZIP Co de Phone Number [facility] [address] [place] [address] * (ABNORMAL) DIALYSIS ROUTINE - DIALYSIS ONLY (BUN, K, NA, CL, CO2, SANJEEV, ALB, MG, PHOS, ALKP, AST) (10/30/2024 6:47 EST) Sodium 139 136 - 145 mmol/L 10/30/2024 21:50 [facility] Potassium 7.0(H) 3.5 - 5.0 mmol/L 10/30/2024 21:50 [facility] Chloride 102 96 - 110 mmol/L 10/30/2024 21:50 [facility] CO2 Total 23 22 - 32 mmol/L 10/30/2024 21:50 [facility] Calcium 8.1(L) 8.5 - 10.5 mg/dL 10/30/2024 21:50 [facility] Albumin 3.4 3.4 - 4.9 g/dL 10/30/2024 21:50 [facility] Phosphorus 9.9(H) 2.5 - 4.5 mg/dL 10/30/2024 21:50 [facility] Calcium Phos Product 80.2 See Note mg/dL 10/30/2024 21:50 [facility] Comment: NOTE: Reference range not established BUN, Predialysis 70(H) 10 - 26 mg/dL 10/30/2024 21:50 [facility] AST 17 15 - 46 U/L 10/30/2024 21:50 [facility] Alkaline Phosphatase 80 38 - 126 U/L 10/30/2024 21:50 [facility] Magnesium 2.4 1.7 - 2.8 mg/dL 10/30/2024 21:50 [facility] Anion Gap 14 5 - 14 mmol/L 10/30/2024 21:50 [facility] Calculated Calcium 8.6(L) 8.9 - 10.5 mg/dL 10/30/2024 21:50 [facility] Blood VENOUS BLOOD / Unknown Venipuncture / Unknown 10/30/2024 6:47 EST 10/30/2024 6:47 EST us Carlota Jin MD CHEMISTRY & BLOOD GAS ORD ERABLES Final Result [facility] [address] [place] [address] documented in this encounter Visit Diagnoses Diagnosis ESRD (end stage renal disease) ([facility])- Primary End stage renal disease Secondary hyperparathyroidism ([facility]) Secondary hyperparathyroidism (of renal origin) Hypoalbuminemia Other disorders of plasma protein metabolism documented in this encounter Administered Medications Inactive Administered Medications - up to 3 most recent administrations Medication Order MAR Action Action Date Dose Rate Site calcium carbonate (TUMS) tablet 500 mg (200 mg elemental calcium) 2 Tablet 2 Tablet, oral, ONCE IN DIALYSIS, 1 dose, On Wed10/30/24 at 0645, Routine, DialysisIndications:ESRD (end stage renal disease) ([facility]),Secondary hyperparathyroidism ([facility]) Given 10/30/2024 6:52 EST 2 Tablets epoetin ken (EPOGEN) 20,000 unit/2 mL injection 5,000 Units 5,000 Units, intravenous, ONCE IN DIALYSIS, 1 dose, On Wed10/30/24 at 0645, Routine, DialysisIndications:ESRD (end stage renal disease) ([facility]) Given 10/30/2024 6:58 EST 5,000 Units heparin injection 3,000 Units 3,000 Units, intravenous, ONCE IN DIALYSIS, 1 dose, On Wed10/30/24 at 0645, Routine, Dialysis, Now x1 bolus 1500 units to be given at the beginning of dialysis 500 units/hour to be given over the course of dialysis (3000 units total). Stop 1 hour prior to end of treatment. To be administered per Policy [id number].Indications:ESRD (end stage renal disease) ([facility]) Given 10/30/2024 6:58 EST 3,000 Units LiquaCel liquid protein liquid 30 mL 30 mL, oral, ONCE IN DIALYSIS, 1 dose, On Wed10/30/24 at 0645, Patient's flavor preference: either, Routine, DialysisIndications:ESRD (end stage renal disease) ([facility]),Hypoalbuminemia Given 10/30/2024 6:52 EST 30 mL documented in this encounter Orders Dialysis Count Last Ordered Date First Orde red Date HEMODIALYSIS 1 10/30/2024 documented in this encounter Care Teams Crime Scene Photographer Relationship Specialty Start Date End Date Ken Greer MD [facility] [place] [address] [place] [address] PCP - General 07/07/23 Kiel Powers Assistant Front Office Manager Nephrology 05/31/24 documented as of this encounter
--- OUTSIDE RECORDS SUMMARY | 2024-12-05 11:54 | XMS_ITS | Encounter Summary ---
Author Organization [facility] Address [address] [place] [address] Care Team Providers Care Product Info Specialist Name Role Phone Ken Greer MD Primary Care Provider [phone] Kiel Powers Unavailable Unavailable Reason for Visit * Episode Based Medications (Routine) - New Request Specialty Diagnoses / Procedures Referred By Nader gardiner Referred To Contact Diagnoses ESRD (end stage renal disease) ([facility]) Carlota Jin MD [address] [place] [address], [facility] [address] [place] [address] Phone: tel: fax: [facility] [address] [place] [address] Phone: tel: fax: Referral ID Status Reason Start Date Expiration Date V isits Requested Visits Authorized [id number] New Request 03/17/2024 1 1 Encounter Details Date Type Department Care Team (Latest Contact Info) Description 10/27/2024 6:45 EST Treatment [facility] [address] [place] [id number] Carlota Jin MD [address] [place] [address], [facility] [address] [place] [address] ESRD (end stage renal disease) ([facility]) (Primary Dx); Hypoalbuminemia; Secondary hyperparathyroidism ([facility] Social History Tobacco Use Types Packs/Day Years Used Date Smoking Tobacco: Every Day Cigarettes 1 26.1 Started: 1998 Smokeless Tobacco: Never Alcohol Use Standard Drinks/Week Comments Yes 0 (1 standard drink = 0.6 oz pur e alcohol) Socially [facility] Utilities Answer Date Recorded In the [...] any time in the past 12 m [facility], were you homeless or living in a retirement (including now)? No 05/30/2024 Interpersonal Safety Answer [...] Never 05/30/2024 How often does anyone, martin lynos family and friends, insult or talk down [...] the past 12 months has th e [employer], gas, oil, or water [employer] threatened to shut off services in your [...] - Temperature - - Respiratory Rate 16 10/27/2024 0624 EST Oxygen Saturation - - Inhaled Oxygen Concentration - - Weight 77.7 kg (171 lb 4.8 oz) 10/27/[address] Height - - Body Mass Index 24.58 07/20/2024 1359 EDT documented in this encounter [...] Flowsheet Note - Marcela Cox RN - 10/27/2024 1131 EST 10/27/24 1052 Post-Hemodialysis Assessment Total Blood Processed (L) 90.52 Liters On Line Clearance: spKt/V 1.55 spKt/V Dialyzer Clearance Lightly streaked Treatment UFR (ml:kg:hr) 7.98 ml:kg:hr Fluid Removed (L) 2.76 L Post-Dialysis Scale Weight 92.4 kg (203 lb 11.3 oz) Wheelchair Weight 17.2 kg (37 lb 14.7 oz) Prosthesis Weight 0 kg (0 lb) Post-Treatment Weight (kg) 75.2 Treatment Weight Change (kg) 2.5 kg Day Target Weight (kg) 75.2 Post Sitting/Lying BP (!) 119/100 Post Sitting/Lying pulse 60 Temp 36.6 ??C (97.9 ??F) Temp src Temporal Minutes Short -250 Post access assessment AVF/AFG Hemostasis achieved Yes Note 10 min hold Orientation Alert and Oriented x3 Yes Time Yes Place Yes Person Yes Cooperative Yes Disoriented No Discharge Ambulation Methods Departs via w/c Wrap up items Patient Response to Treatment Removed 2.7L out of original 3L UF goal without difficulty. UF goal adjusted per crit line, vital signs and pt tolerance. Comments no concerns voiced post tx. documented in this encounter Plan of Treatment Upcoming Encounters Date Type Department Care Team (Late st Contact Info) Description 12/06/2024 6:45 EST Treatment [facility] [address] [place], [place] [id number] Carlota Jin MD 1 [facility], [facility] [address] [place] [phone] 12/08/2024 6:45 EST Treatment [facility] [address] [place], [place] [id number] Carlota Jin MD 1 [facility], [address] [phone] 12/11/2024 6:45 EST [facility] [address] [place], [place] [id number] Carlota Jin MD [address] [phone] 12/13/2024 6:45 EST Treatment [facility] [address] [place], [place] [id number] Carlota Jin MD 1 [facility], [address] [phone] 12/15/2024 6:45 EST Treatment [facility] [address] [place], [place] [id number] Carlota Jin MD 1 [facility], [address] [phone] 12/18/2024 6:45 EST Treatment [facility] [address] [place], [place] [address] Carlota Jin MD 1 [facility], [facility] [address] [place] [phone] 12/20/2024 6:45 EST Treatment [facility] [address] [place], [place] [id number] Carlota Jin MD 1 [facility], [facility] [address] [place] [phone] 12/22/2024 6:45 EST Treatment [facility] [address] [place], [place] [id number] Carlota Jin MD 1 [facility], [facility] [address] [place] [phone] 12/25/2024 6:45 EST Treatment [facility] [address] [place], [place] [id number] Carlota Jin MD 1 [facility], [facility] [address] [place] [phone] 12/27/2024 6:45 EST Treatment [facility] [address] [place], [place] [id number] Carlota Jin MD 1 [facility], [facility] [address] [place] [phone] 12/29/2024 6:45 EST Treatment [facility] [address] [place], [place] [id number] Carlota Jin MD 1 [facility], [facility] [address] [place] [phone] 01/01/2025 6:45 EDT Treatment [facility] [address] [place], [place] [address] Carlota Jin MD 1 [facility], [facility] [address] [place] [phone] 01/03/2025 6:45 EDT Treatment [facility] [address] [place], [place] [id number] Carlota Jin MD 1 [facility], [facility] [address] [place] [phone] 01/05/2025 6:45 EDT Treatment [facility] [address] [place], [place] [id number] Carlota Jin MD 1 [facility], [facility] [address] [place] [phone] 01/08/2025 6:45 EDT Treatment [facility] [address] [place] [address] Carlota Jin MD 1 [facility], [facility] [address] [place] [phone] 01/10/2025 6:45 EDT Treatment [facility] [address] [place], [place] [id number] Carlota Jin MD 1 [facility], [facility] [address] [place] [phone] 01/12/2025 6:45 EDT Treatment [facility] [address] [place], [place] [id number] Carlota Jin MD 1 [facility], [facility] [address] [place] [phone] 01/15/2025 6:45 EDT Treatment [facility] [address] [place], [place] [id number] Carlota Jin MD [address] [place] [address], [address] [phone] 01/17/2025 6:45 EDT Treatment [facility] [address] [place], [place] [id number] Carlota Jin MD [address] [place] [address], [address] [phone] 01/19/2025 6:45 EDT Treatment [facility] [address] [place], [place] [id number] Carlota Jin MD [address] [place] [address], [facility] [address] [place] [phone] 01/22/2025 6:45 EDT Treatment [facility] [address] [place], [place] [id number] Carlota Jin MD 1 [facility], [facility] [address] [place] [phone] 01/24/2025 6:45 EDT Treatment [facility] [address] [place], [place] [id number] Carlota Jin MD 1 [facility], [facility] [address] [place] [phone] 01/26/2025 6:45 EDT Treatment [facility] [address] [place], [place] [phone] Carlota Jin MD 1 [facility], [facility] [address] [place] [phone] 01/29/2025 6:45 EDT Treatment [facility] [address] [place], [place] [id number] Cralota Jin MD 1 [facility], [facility] [address] [place] [phone] 01/31/2025 6:45 EDT Treatment [facility] [address] [place] [address] Carlota Jin MD 1 [facility], [facility] [address] [place] [phone] 02/02/2025 6:45 EDT Treatment [facility] [address] [place] [address] Carlota Jin MD 1 [facility], [facility] [address] [place] [phone] 02/05/2025 6:45 EDT Treatment [facility] [address] [place], [place] [id number] Carlota Jin MD 1 [facility], [facility] [address] [place] [phone] 02/07/2025 6:45 EDT Treatment [facility] [address] [place], [place] [id number] Carlota Jin MD 1 [facility], [facility] [address] [place] [phone] 02/09/2025 6:45 EDT Treatment [facility] [address] [place], [place] [id number] Carlota Jin MD 1 [facility], [facility] [address] [place] [phone] 02/12/2025 6:45 EDT Treatment [facility] [address] [place], [place] [id number] Carlota Jin MD 1 [facility], [facility] [address] [place] [phone] 02/14/2025 6:45 EDT Treatment [facility] [address] [place], [place] [address] Carlota Jin MD 1 [facility], [facility] [address] [place] [phone] 02/16/2025 6:45 EDT Treatment [facility] [address] [place], [place] [id number] Carlota Jin MD 1 [facility], [facility] [address] [place] [phone] 02/19/2025 6:45 EDT Treatment [facility] [address] [place], [place] [id number] Carlota Jin MD 1 [facility], Level [address] [place] [phone] 02/21/2025 6:45 EDT Treatment [facility] [address] [place] [id number] Carlota Jin MD 1 [facility], Level [address] [place] [phone] documented as of this encounter Procedures Procedure Name Priority Date/Time Associated Diagnosis Comments HEMODIALYSIS Routine 10/27/2024 6:24 EST ESRD (end stage renal disease) ([facility]) documented in this encounter Visit Diagnoses Diagnosis ESRD (end stage renal disease) ([facility])- Primary End stage renal disease Hypoalbuminemia Other disorders of plasma protein metabolism Secondary hyperparathyroidism ([facility]) Secondary hyperparathyroidism (of renal origin) documented in this encounter Administered Medications Inactive Administered Medications - up to 3 most recent administrations Medication Order MAR Action Action Date Dose Rate Site calcium carbonate (TUMS) tablet 500 mg (200 mg elemental calcium) 2 Tablet 2 Tablet, oral, ONCE IN DIALYSIS, 1 dose, On Wed10/27/24 at 0645, Routine, DialysisIndications:ESRD (end stage renal disease) ([facility]),Secondary hyperparathyroidism ([facility]) Given 10/27/2024 6:35 EST 2 Tablets epoetin ken (EPOGEN) 20,000 unit/2 mL injection 5,000 Units 5,000 Units, intravenous, ONCE IN DIALYSIS, 1 dose, On Wed10/27/24 at 0645, Routine, DialysisIndications:ESRD (end stage renal disease) ([facility]) Given 10/27/2024 7:01 EST 5,000 Units heparin injection 3,000 Units 3,000 Units, intravenous, ONCE IN DIALYSIS, 1 dose, On Wed10/27/24 at 0645, Routine, Dialysis, Now x1 bolus 1500 units to be given at the beginning of dialysis 500 units/hour to be given over the course of dialysis (3000 units total). Stop 1 hour prior to end of treatment. To be administered per Policy [id number].Indications:ESRD (end stage renal disease) ([facility]) Given 10/27/2024 7:01 EST 3,000 Units LiquaCel liquid protein liquid 30 mL 30 mL, oral, ONCE IN DIALYSIS, 1 dose, On Wed10/27/24 at 0645, Patient's flavor preference: either, Routine, DialysisIndications:ESRD (end stage renal disease) ([facility]),Hypoalbuminemia Given 10/27/2024 6:35 EST 30 mL documented in this encounter Orders Dialysis Count Last Ordered Date First Orde red Date HEMODIALYSIS 1 10/27/2024 documented in this encounter Care Teams Product Info Specialist Relationship Specialty Start Date End Date Ken Greer MD [address] [place] [address] PCP - General 07/07/23 Kiel Powers [employer] Nephrology 05/31/24 documented as of this encounter
--- OUTSIDE RECORDS SUMMARY | 2024-12-05 11:54 | XMS_ITS | Encounter Summary ---
Author Organization [facility] Address [address] [place] [address] Care Team Providers Care White Hat Hacker Name Role Phone Ken Greer MD Primary Care Provider [phone] Kiel Powers Unavailable Unavailable Encounter Details Date Type Department Care Team (Late st Contact Info) Description 10/27/2024 Orders Only [facility] Dialysis [facility] [address] [place] [address] Paris Quintanilla NP 1 [facility] [address] [place] [address] Social History Tobacco Use Types Packs/Day Years Used Date Smoking Tobacco: Every Day Cigarettes 1 26.1 Started: 1998 Smokeless Tobacco: Never Alcohol Use Standard Drinks/Week Comments Yes 0 (1 standard drink = 0.6 oz pur e alcohol) Socially [facility] Utilities Answer Date Recorded In the past 12 months has [employer], gas, oil, or water [employer] threatened to shut off services in your [...] any time in the past 12 m [facility], were you homeless or living in a snf (including now)? No 05/30/2024 Interpersonal Safety Answer Date Record ed How often does anyone, martin lyons family, hit, punch or physically hurt you? 05/30/2024 How often does anyone, martin lyons family, insult, scream, curse or threaten to hurt you? 05/30/2024 Living Situation Answer Date Recorded What is your living situation today? I have a [facility] place to live 05/30/[address] you li ve. Do you have problems with any of the following? None of the above 05/30/2024 Interpersonal Safety Answer Date Record ed How often does anyone, martin lyons family and friends, physically hurt you? Never 05/30/2024 How often does anyone, inclu ding family and friends, insult or talk [...] has e electric, gas, oil, or water [employer] threatened to shut off services in your [...] Refills Last Filled Start Date End Date sevelamer carbonate (RENVELA) 800 mg tablet Take 3 Tablets by mouth daily before breakfast AND 3 Tablets daily before lunch AND 3 Tablets daily before dinner. 270 Tablet 5 10/27/2024 documented in this encounter Plan of Treatment Upcoming Encounters Date Type Department Care Team (Late st Contact Info) Description 12/06/2024 6:45 EST Treatment [facility] [address] [place] [address] Carlota Jin MD 1 [facility], [facility] 2 [place] [phone] 12/08/2024 6:45 EST Treatment [facility] [place] [address] [place], [place] [phone] Carlota Jin MD 1 [facility], [facility] 2 [place] [phone] 12/11/2024 6:45 EST Treatment [facility] [place] [address] [place], [place] [id number] Carlota Jin MD 1 [facility], [facility] 2 [place] [phone] 12/13/2024 6:45 EST Treatment [facility] [place] [address] [place], [place] [id number] Carlota Jin MD 1 [facility], [facility] 2 [place] [phone] 12/15/2024 6:45 EST Treatment [facility] [place] [address] [place], [place] [id number] Carlota Jin MD 1 [facility], [facility] 2 [place] [phone] 12/18/2024 6:45 EST Treatment [facility] [place] [address] [place], [place] [id number] Carlota Jin MD 1 [facility], [facility] 2 [place] [phone] 12/20/2024 6:45 EST Treatment [facility] [place] [address] [place], [place] [id number] Carlota Jin MD 1 [facility], [facility] 2 [place] [phone] 12/22/2024 6:45 EST Treatment [facility] [place] [address] [place], [place] [id number] Carlota Jin MD 1 [facility], [facility] 2 [place] [phone] 12/25/2024 6:45 EST Treatment [facility] [place] [address] [place], [place] [id number] Carlota Jin MD 1 [facility], [facility] 2 [place] [phone] 12/27/2024 6:45 EST Treatment [facility] [place] [address] [place], [place] [id number] Carlota Jin MD 1 [facility], [facility] 2 [place] [phone] 12/29/2024 6:45 EST Treatment [facility] [place] [address] [place], [place] [id number] Carlota Jin MD 1 [facility], [facility] [address] [place] [phone] 01/01/2025 6:45 EDT Treatment [facility] [address] [place] [address] Carlota Jin MD 1 [facility], [facility] 2 [place] [phone] 01/03/2025 6:45 EDT Treatment [facility] [place] [address] [place] [address] Carlota Jin MD 1 [facility], [facility] 2 [place] [phone] 01/05/2025 6:45 EDT Treatment [facility] [place] [address] [place] [address] Carlota Jin MD 1 [facility], [address] [phone] 01/08/2025 6:45 EDT Treatment [facility] [place] [address] [place] [address] Carlota Jin MD 1 [facility], [address] [phone] 01/10/2025 6:45 EDT Treatment [facility] [address] [place] [address] Carlota Jin MD 1 [facility], [facility] 2 [place] [phone] 01/12/2025 6:45 EDT Treatment [facility] [place] [address] [place], [place] [id number] Carlota Jin MD 1 [facility], [facility] 2 [place] [phone] 01/15/2025 6:45 EDT Treatment [facility] [place] [address] [place], [place] [address] Carlota Jin MD 1 [facility], [facility] 2 [place] [phone] 01/17/2025 6:45 EDT Treatment [facility] [address] [place], [place] [id number] Carlota Jin MD [address] [place] [address], [facility] [address] [place] [phone] 01/19/2025 6:45 EDT Treatment [facility] [place] [address] [place], [place] [address] Carlota Jin MD 1 [facility], [facility] 2 [place] [phone] 01/22/2025 6:45 EDT Treatment [facility] [address] [place], [place] [address] Carlota Jin MD [address] [place] [address], [facility] [address] [place] [phone] 01/24/2025 6:45 EDT Treatment [facility] [place] [address] [place], [place] [id number] Carlota Jin MD 1 [facility], [facility] 2 [place] [phone] 01/26/2025 6:45 EDT Treatment [facility] [place] [address] [place], [place] [address] Carlota Jin MD 1 [facility], [address] [phone] 01/29/2025 6:45 EDT Treatment [facility] [place] [address] [place], [place] [id number] Carlota Jin MD 1 [facility], [address] [phone] 01/31/2025 6:45 EDT Treatment [facility] [place] [address] [place], [place] [id number] Carlota Jin MD 1 [facility], [address] [phone] 02/02/2025 6:45 EDT Treatment [facility] [place] [address] [place], [place] [id number] Carlota Jin MD [address] [phone] 02/05/2025 6:45 EDT Treatment [facility] [place] [address] [place], [place] [id number] Carlota Jin MD [address] [phone] 02/07/2025 6:45 EDT Treatment [facility] [place] [address] [place], [place] [id number] Carlota Jin MD 1 [facility], [address] [phone] 02/09/2025 6:45 EDT Treatment [facility] [place] [address] [place], [place] [id number] Carlota Jin MD 1 [facility], [facility] 2 [place] [phone] 02/12/2025 6:45 EDT Treatment [facility] [place] [address] [place], [place] [id number] Carlota Jin MD 1 [facility], [facility] 2 [place] [phone] 02/14/2025 6:45 EDT Treatment [facility] [place] [address] [place], [place] [id number] Carlota Jin MD 1 [facility], [address] [phone] 02/16/2025 6:45 EDT Treatment [facility] [place] [address] [place] [address] Carlota Jin MD 1 [facility], [facility] 2 [place] [phone] 02/19/2025 6:45 EDT Treatment [facility] [place] [address] [place], [place] [id number] Carlota Jin MD 1 [facility], [facility] 2 [place] [phone] 02/21/2025 6:45 EDT Treatment [facility] [place] [address] [place] [address] Carlota Jin MD [address] [place] [address], [address] [place] [phone] documented as of this encounter Visit Diagnoses Not on filedocumented in this encounter Discontinued Medications Medication Sig Discontinue Reason Start Date End Da te sevelamer carbonate (RENVELA) 800 mg tablet Take 3 Tablets by mouth 3 times daily with meals. Reorder 07/07/2024 10/27/2024 documented as of this encounter Care Teams White Hat Hacker Relationship Specialty Start Date End Date Ken Greer MD [facility] [place] [address] PCP - General 07/07/23 Kiel Powers Pharmacologist Nephrology 05/31/24 documented as of this encounter
--- OUTSIDE RECORDS SUMMARY | 2024-12-05 11:55 | XMS_ITS | Encounter Summary ---
Author Organization [facility] Address [address] [place] [address] Care Team Providers Care Barn Boss Name Role Phone Ken Greer MD Primary Care Provider [phone] Kiel Powers Unavailable Unavailable Reason for Visit * Episode Based Medications (Routine) - New Request Specialty Diagnoses / Procedures Referred By Nader gardiner Referred To Contact Diagnoses ESRD (end stage renal disease) ([facility]) Carlota Jin MD 1 [facility], [address] [place] [address] Phone: tel: fax: [facility] [address] [place] [address] Phone: tel: fax: Referral ID Status Reason Start Date Expiration Date V isits Requested Visits Authorized [id number] New Request 03/17/2024 1 1 Encounter Details Date Type Department Care Team (Latest Contact Info) Description 10/19/2024 6:45 EST Treatment [facility] [address] [place] [id number] ESRD (end stage renal disease) ([facility]) (Primary Dx); Hypoalbuminemia; Secondary hyperparathyroidism ([facility]) Social History Tobacco Use Types Packs/Day Years Used Date Smoking Tobacco: Every Day Cigarettes 1 26.1 Started: 1998 Smokeless Tobacco: Never Alcohol Use Standard Drinks/Week Comments Yes 0 (1 standard drink = 0.6 oz pur e alcohol) Socially [facility] Utilities Answer Date Recorded In [...] any time in the past 12 m [facility], were you homeless or living in [...] the past 12 months has th e [employer], gas, oil, or water Triage threatened to shut off services in your [...] - Temperature - - Respiratory Rate 16 10/19/2024 0639 EST Oxygen Saturation - - Inhaled Oxygen Concentration - - Weight 81.2 kg (179 lb 0.2 oz) 10/19/[address] Height - - Body Mass [...] Daria Fonseca RN * Do you have difficulty dressing [...] Progress Notes * Marcela Cox RN - 10/19/2024 0645 EST Start of tx BS check (check done as pt reports he did not eat breakfast) - 127, no intervention required Mid tx BS check- 101, no intervention required End of tx BS check- 87, 25ml 50% dextrose solution given d/t swallowing issues per Dr. Jin 15 min recheck- 123 documented in this encounter Miscellaneous Notes * Flowsheet Note - Marcela Cxo RN - 10/19/2024 1345 EST 10/19/24 1052 Post-Hemodialysis Assessment Total Blood Processed (L) 86.89 Liters On Line Clearance: spKt/V 1.49 spKt/V Dialyzer Clearance Lightly streaked Treatment UFR (ml:kg:hr) 11.95 ml:kg:hr Final Critline Profile (%/hr) -1.13 Final Profile Profile A Critline refill Positive (31.9/31.3) Fluid Removed (L) 4.3 L Post-Dialysis Scale Weight 111.4 kg (245 lb 9.5 oz) Wheelchair Weight 33.8 kg (74 lb 8.3 oz) Prosthesis Weight 0 kg (0 lb) Post-Treatment Weight (kg) 77.6 Treatment Weight Change (kg) 3.6 kg Day Target Weight (kg) 77.4 Post Sitting/Lying BP 158/78 Post Sitting/Lying pulse 65 Temp 36.3 ??C (97.3 ??F) Temp src Temporal Minutes Short -233 Post access assessment AVF/AFG Hemostasis achieved Yes Note 10 minute hold with blue clamps Orientation Alert and Oriented x3 Yes Time Yes Place Yes Person Yes Cooperative Yes Disoriented No Discharge Ambulation Methods Departs via w/c Wrap up items Patient Response to Treatment Tolerated tx well. Removed 4.3L UF goal without difficulty. Comments see alternate RN for note BS readings and interventions documented in this encounter Plan of Treatment Upcoming Encounters Date Type Department Care Team (Late st Contact Info) Description 12/06/2024 6:45 EST Treatment [facility] [address] [place], [place] [id number] Carlota Jin MD 1 [facility], [facility] [place] [phone] 12/08/2024 6:45 EST Treatment [facility] [address] [place], [place] [id number] Carlota Jin MD [address] [phone] 12/11/2024 6:45 EST [facility] [address] [place], [place] [id number] Carlota Jin MD 1 [facility], [facility] [place] [phone] 12/13/2024 6:45 EST Treatment [facility] [address] [place], [place] [id number] Carlota Jin MD 1 [facility] [address] [place] [phone] 12/15/2024 6:45 EST Treatment [facility] [place] [address] [place], [place] [id number] Carlota Jin MD 1 [facility], [facility] [place] [phone] 12/18/2024 6:45 EST Treatment [facility] [place] [address] [place], [place] [id number] Carlota Jin MD 1 [facility], [facility] [place] [phone] 12/20/2024 6:45 EST Treatment [facility] [place] [address] [place], [place] [id number] Carlota Jin MD 1 [facility], [facility] [place] [phone] 12/22/2024 6:45 EST Treatment [facility] [place] [address] [place], [place] [id number] Carlota Jin MD 1 [facility], [facility] [place] [phone] 12/25/2024 6:45 EST Treatment [facility] [place] [address] [place], [place] [id number] Carlota Jin MD 1 [facility], [facility] [place] [phone] 12/27/2024 6:45 EST Treatment [facility] [place] [address] [place], [place] [id number] Carlota Jin MD 1 [facility], [facility] [place] [phone] 12/29/2024 6:45 EST Treatment [facility] [place] [address] [place], [place] [address] Carlota Jin MD 1 [facility], [facility] [place] [phone] 01/01/2025 6:45 EDT Treatment [facility] [place] [address] [place], [place] [id number] Carlota Jin MD 1 [facility], [facility] [place] [phone] 01/03/2025 6:45 EDT Treatment [facility] [place] [address] [place], [place] [address] Carlota Jin MD 1 [facility], [facility] [place] [phone] 01/05/2025 6:45 EDT Treatment [facility] [place] [address] [place] [address] Carlota Jin MD 1 [facility], [facility] [place] [phone] 01/08/2025 6:45 EDT Treatment [facility] [place] [address] [place], [place] [address] Carlota Jin MD 1 [facility], [facility] [place] [phone] 01/10/2025 6:45 EDT Treatment [facility] [place] [address] [place], [place] [id number] Carlota Jin MD 1 [facility], [facility] [place] [phone] 01/12/2025 6:45 EDT Treatment [facility] [place] [address] [place], [place] [id number] Carlota Jin MD [address] [place] [address], [address] [phone] 01/15/2025 6:45 EDT Treatment [facility] [place] [address] [place], [place] [id number] Carlota Jin MD [address] [place] [address], [address] [phone] 01/17/2025 6:45 EDT Treatment [facility] [place] [address] [place], [place] [id number] Carlota Jin MD [address] [place] [address], [facility] [place] [phone] 01/19/2025 6:45 EDT Treatment [facility] [place] [address] [place], [place] [id number] Carlota Jin MD [address] [place] [address], [facility] [place] [phone] 01/22/2025 6:45 EDT Treatment [facility] [place] [address] [place], [place] [id number] Carlota Jin MD 1 [facility], [facility] [place] [phone] 01/24/2025 6:45 EDT Treatment [facility] [place] [address] [place], [place] [address] Carlota Jin MD 1 [facility], [facility] [place] [phone] 01/26/2025 6:45 EDT Treatment [facility] [place] [address] [place], [place] [id number] Carlota Jin MD 1 [facility], [facility] [place] [phone] 01/29/2025 6:45 EDT Treatment [facility] [place] [address] [place], [place] [id number] Carlota Jin MD 1 [facility], [facility] [place] [phone] 01/31/2025 6:45 EDT Treatment [facility] [address] [place], [place] [id number] Carlota Jin MD 1 [facility], [facility] [place] [phone] 02/02/2025 6:45 EDT Treatment [facility] [place] [address] [place], [place] [id number] Carlota Jin MD 1 [facility], [facility] [place] [phone] 02/05/2025 6:45 EDT Treatment [facility] [place] [address] [place], [place] [id number] Carlota Jin MD 1 [facility], [facility] [place] [phone] 02/07/2025 6:45 EDT Treatment [facility] [place] [address] [place], [place] [id number] Carlota Jin MD 1 [facility], [facility] [place] [phone] 02/09/2025 6:45 EDT Treatment [facility] [place] [address] [place], [place] [address] Carlota Jin MD 1 [facility], [address] [phone] 02/12/2025 6:45 EDT Treatment [facility] [place] [address] [place] [address] Carlota Jin MD 1 [facility], [facility] [place] [phone] 02/14/2025 6:45 EDT Treatment [facility] [place] [address] [place], [place] [id number] Carlota Jin MD 1 [facility], [facility] [place] [phone] 02/16/2025 6:45 EDT Treatment [facility] [place] [address] [place], [place] [id number] Carlota Jin MD 1 [facility], [facility] [place] [phone] 02/19/2025 6:45 EDT Treatment [facility] [place] [address] [place], [place] [id number] Carlota Jin MD 1 [facility], [facility] [place] [phone] 02/21/2025 6:45 EDT Treatment [facility] [address] [place], [place] [id number] Carlota Jin MD 1 [facility], [facility] [place] [phone] documented as of this encounter Procedures Procedure Name Priority Date/Time Associated Diagnosis Comments COMPLETE BLOOD COUNT Routine 10/19/2024 6:47 EST ESRD (end stage renal disease) ([facility]) HEMODIALYSIS Routine 10/19/2024 6:39 EST ESRD (end stage renal disease) ([facility]) documented in this encounter Results * (ABNORMAL) COMPLETE BLOOD COUNT (10/19/2024 6:47 EST) WBC 8.29 4.00 - 10.40 K/cmm 10/19/2024 21:18 [facility] RBC 3.29(L) 4.36 - 5.78 M/cmm 10/19/2024 21:18 [facility] Hemoglobin 9.4(L) 13.8 - 17.3 g/dL 10/19/2024 21:18 [facility] HCT 28.8(L) 39.5 - 50.2 % 10/19/2024 21:18 [facility] MCV 88 81 - 95 fL 10/19/2024 21:18 [facility] MCH 28.6 27.6 - 33.0 pg 10/19/2024 21:18 [facility] MCHC 32.6(L) 32.8 - 36.4 g/dL 10/19/2024 21:18 [facility] RDW-CV 15.2(H) <14.2 % 10/19/2024 21:18 [facility] RDW-SD 48.2(H) <46.0 fl 10/19/2024 21:18 [facility] PLT 237 141 - 377 K/cmm 10/19/2024 21:18 [facility] MPV 12.1 9.5 - 12.7 fL 10/19/2024 21:18 [facility] Blood VENOUS BLOOD / Unknown Venipuncture / Unknown 10/19/2024 6:47 EST 10/19/2024 6:47 EST us Carlota Jin MD HEMATOLOGY & PF4 ORDERABL ES Final Result [facility] [address] [place] [address] documented in this encounter Visit Diagnoses Diagnosis ESRD (end stage renal disease) ([facility])- Primary End stage renal disease Hypoalbuminemia Other disorders of plasma protein metabolism Secondary hyperparathyroidism ([facility]) Secondary hyperparathyroidism (of renal origin) documented in this encounter Administered Medications Inactive Administered Medications - up to 3 most recent administrations Medication Order MAR Action Action Date Dose Rate Site calcium carbonate (TUMS) tablet 500 mg (200 mg elemental calcium) 2 Tablet 2 Tablet, oral, ONCE IN DIALYSIS, 1 dose, On Viridiana 10/19/24 at 0700, Routine, DialysisIndications:ESRD (end stage renal disease) ([facility]),Secondary hyperparathyroidism ([facility]) Given 10/19/2024 7:00 EST 2 Tablets dextrose 50 % solution 12.5 g 12.5 g, intravenous, NOW X1, 1 dose, On Viridiana 10/19/24 at 1115, RoutineIndications:ESRD (end stage renal disease) ([facility]) Given 10/19/2024 10:50 EST 12.5 g epoetin ken (EPOGEN) 20,000 unit/2 mL injection 5,000 Units 5,000 Units, intravenous, ONCE IN DIALYSIS, 1 dose, On Viridiana 10/19/24 at 0700, Routine, DialysisIndications:ESRD (end stage renal disease) ([facility]) Given 10/19/2024 7:05 EST 5,000 Units heparin injection 3,000 Units 3,000 Units, intravenous, ONCE IN DIALYSIS, 1 dose, On Viridiana 10/19/24 at 0700, Routine, Dialysis, Now x1 bolus 1500 units to be given at the beginning of dialysis 500 units/hour to be given over the course of dialysis (3000 units total). Stop 1 hour prior to end of treatment. To be administered per Policy [id number].Indications:ESRD (end stage renal disease) ([facility]) Given 10/19/2024 7:05 EST 3,000 Units LiquaCel liquid protein liquid 30 mL 30 mL, oral, ONCE IN DIALYSIS, 1 dose, On Viridiana 10/19/24 at 0700, Patient's flavor preference: either, Routine, DialysisIndications:ESRD (end stage renal disease) ([facility]),Hypoalbuminemia Given 10/19/2024 6:59 EST 30 mL documented in this encounter Orders Dialysis Count Last Ordered Date First Orde red Date HEMODIALYSIS 1 10/19/2024 documented in this encounter Care Teams Barn Boss Relationship Specialty Start Date End Date Ken Grere MD [address] [place] [address] PCP - General 07/07/23 Kiel Powers Fixed Income Manager Nephrology 05/31/24 documented as of this encounter
--- OUTSIDE RECORDS SUMMARY | 2024-12-05 11:55 | XMS_ITS | Encounter Summary ---
Author Organization [facility] Address [address] [place] [address] Care Team Providers Care Soda Fountain Operator Name Role Phone Ken Greer MD Primary Care Provider [phone] Kiel Powers Unavailable Unavailable Reason for Visit * Episode Based Medications (Routine) - New Request Specialty Diagnoses / Procedures Referred By Nader gardiner Referred To Contact Diagnoses ESRD (end stage renal disease) ([facility]) Carlota Jin MD [address] [place] [address], [facility] [address] [place] [address] Phone: tel: fax: [facility] [place] [address] [place] [address] Phone: tel: fax: Referral ID Status Reason Start Date Expiration Date V isits Requested Visits Authorized [id number] New Request 03/17/2024 1 1 Encounter Details Date Type Department Care Team (Latest Contact Info) Description 10/23/2024 6:45 EST Treatment [facility] [address] [place] [id number] Carlota Jin MD [address] [place] [address], [facility] [address] [place] [phone] ESRD (end stage renal disease) ([facility]) (Primary Dx); Hypoalbuminemia; Secondary hyperparathyroidism [facility] Social History Tobacco Use Types Packs/Day Years Used Date Smoking Tobacco: Every Day Cigarettes 1 26.1 Started: 1998 Smokeless Tobacco: Never Alcohol Use Standard Drinks/Week Comments Yes 0 (1 standard drink = 0.6 oz pur e alcohol) Socially [facility] Utilities Answer Date Recorded In the [...] in the past 12 m [facility], were you homeless or living in a [...] the past 12 months has th e [employer], gas, oil, or water [employer] threatened to shut off services in your [...] - Temperature - - Respiratory Rate 16 10/23/2024 0626 EST Oxygen Saturation - - Inhaled Oxygen Concentration - - Weight 80.2 kg (176 lb 12.9 oz) 10/23/2024 0622 EST Height - - Body Mass Index 25.37 07/20/2024 1359 EDT documented in this encounter [...] Progress Notes * Marcela Cox RN - 10/23/2024 0645 EST Mid tx BS check- 87, 25 ml Dextrose solution given d/t swallowing issues 15 min recheck- 93, no intervention needed 1 hr recheck- 89, 25 ml Dextrose solution given d/t swallowing issues 15 min recheck- 91, no intervention needed 1 hr recheck( pt d/c from unit prior, aware of BS readings during tx and interventions) documented in this encounter Miscellaneous Notes * Flowsheet Note - Marcela Cox RN - 10/23/2024 1110 EST 10/23/24 1023 Post-Hemodialysis Assessment Total Blood Processed (L) 85.33 Liters On Line Clearance: spKt/V 1.46 spKt/V Dialyzer Clearance Lightly streaked Treatment UFR (ml:kg:hr) 12.78 ml:kg:hr Critline refill Not done Fluid Removed (L) 4.04 L Post-Dialysis Scale Weight 110.3 kg (243 lb 2.7 oz) Wheelchair Weight 33.8 kg (74 lb 8.3 oz) Prosthesis Weight 0 kg (0 lb) Post-Treatment Weight (kg) 76.5 Treatment Weight Change (kg) 3.7 kg Day Target Weight (kg) 76.4 Post Sitting/Lying BP 167/77 Post Sitting/Lying pulse 63 Temp 36.7 ??C (98.1 ??F) Temp src Temporal Minutes Short -227 Post access assessment AVF/AFG Hemostasis achieved Yes Note 10 minute hold with blue clamps. No issues. Orientation Alert and Oriented x3 Yes Time Yes Place Yes Person Yes Cooperative Yes Disoriented No Discharge Ambulation Methods Departs via w/c Wrap up items Patient Response to Treatment Removed 4L out of original 4.3L UF goal, unable to remove full goal as pt reports nausea. Rinseback performed 15 min early d/t symptoms. This improved post rinseback. Comments no concerns voiced post tx. documented in this encounter Plan of Treatment Upcoming Encounters Date Type Department Care Team (Late st Contact Info) Description 12/06/2024 6:45 EST Treatment [facility] [address] [place], [place] [id number] Carlota Jin MD [address] [place] [phone] 12/08/2024 6:45 EST Treatment [facility] [address] [place], [place] [id number] Carlota Jin MD [address] [place] [address], [facility] [address] [place] [phone] 12/11/2024 6:45 EST Treatment [facility] [address] [place], [place] [id number] Carlota Jin MD [address] [place] [address] [address] [place] [phone] 12/13/2024 6:45 EST Treatment [facility] [address] [place] [address] Carlota Jin MD 1 [facility], [facility] [address] [place] [phone] 12/15/2024 6:45 EST Treatment [facility] [place] [address] [place], [place] [id number] Carlota Jin MD 1 [facility], [facility] [address] [place] [phone] 12/18/2024 6:45 EST Treatment [facility] [place] [address] [place] [address] Carlota Jin MD 1 [facility], [address] [phone] 12/20/2024 6:45 EST Treatment [facility] [place] [address] [place], [place] [id number] Carlota Jin MD 1 [facility], [address] [phone] 12/22/2024 6:45 EST Treatment [facility] [place] [address] [place] [address] Carlota Jin MD 1 [facility], [facility] [address] [place] [phone] 12/25/2024 6:45 EST Treatment [facility] [place] [address] [place], [place] [id number] Carlota Jin MD 1 [facility], [facility] [address] [place] [phone] 12/27/2024 6:45 EST Treatment [facility] [place] [address] [place], [place] [id number] Carlota Jin MD 1 [facility], [facility] [address] [place] [phone] 12/29/2024 6:45 EST Treatment [facility] [place] [address] [place], [place] [id number] Carlota Jin MD 1 [facility], [facility] [address] [place] [phone] 01/01/2025 6:45 EDT Treatment [facility] [place] [address] [place], [place] [id number] Carlota Jin MD 1 [facility], [facility] [address] [place] [phone] 01/03/2025 6:45 EDT Treatment [facility] [address] [place], [place] [id number] Carlota Jin MD 1 [facility], [facility] [address] [place] [phone] 01/05/2025 6:45 EDT Treatment [facility] [place] [address] [place], [place] [id number] Carlota Jin MD 1 [facility], [facility] [address] [place] [phone] 01/08/2025 6:45 EDT Treatment [facility] [place] [address] [place], [place] [id number] Carlota Jin MD 1 [facility], [facility] [address] [place] [phone] 01/10/2025 6:45 EDT Treatment [facility] [place] [address] [place], [place] [id number] Carlota Jin MD 1 [facility], [address] [phone] 01/12/2025 6:45 EDT Treatment [facility] [place] [address] [place], [place] [id number] Carlota Jin MD 1 [facility], [address] [phone] 01/15/2025 6:45 EDT Treatment [facility] [place] [address] [place], [place] [id number] Carlota Jin MD 1 [facility], [address] [phone] 01/17/2025 6:45 EDT Treatment [facility] [place] [address] [place], [place] [id number] Carlota Jin MD 1 [facility], [facility] [address] [place] [phone] 01/19/2025 6:45 EDT Treatment [facility] [address] [place], [place] [id number] Carlota Jin MD 1 [facility], [facility] [address] [place] [phone] 01/22/2025 6:45 EDT Treatment [facility] [address] [place], [place] [id number] Carlota Jin MD 1 [facility], [facility] [address] [place] [phone] 01/24/2025 6:45 EDT Treatment [facility] [place] [address] [place], [place] [id number] Carlota Jin MD 1 [facility], [facility] [address] [place] [phone] 01/26/2025 6:45 EDT Treatment [facility] [place] [address] [place] [address] Carlota Jin MD 1 [facility], [address] [phone] 01/29/2025 6:45 EDT Treatment [facility] [place] [address] [place], [place] [id number] Carlota Jin MD 1 [facility], [facility] [address] [place] [phone] 01/31/2025 6:45 EDT Treatment [facility] [place] [address] [place], [place] [phone] Carlota Jin MD 1 [facility], [facility] [address] [place] [phone] 02/02/2025 6:45 EDT Treatment [facility] [place] [address] [place], [place] [id number] Carlota Jin MD 1 [facility], [facility] [address] [place] [phone] 02/05/2025 6:45 EDT Treatment [facility] [place] [address] [place], [place] [id number] Carlota Jin MD 1 [facility], [facility] [address] [place] [phone] 02/07/2025 6:45 EDT Treatment [facility] [address] [place] [address] Carlota Jin MD 1 [facility], [address] [phone] 02/09/2025 6:45 EDT Treatment [facility] [place] [address] [place], [place] [id number] Carlota Jin MD [address] [phone] 02/12/2025 6:45 EDT Treatment [facility] [place] [address] [place], [place] [id number] Carlota Jin MD [address] [phone] 02/14/2025 6:45 EDT Treatment [facility] [place] [address] [place], [place] [id number] Carlota Jin MD 1 [facility] [address] [place] [phone] 02/16/2025 6:45 EDT Treatment [facility] [address] [place] [place] [address] Carlota Jin MD 1 [facility], [address] [phone] 02/19/2025 6:45 EDT Treatment [facility] [address] [place] [place] [address] Carlota Jin MD 1 [facility], [address] [phone] 02/21/2025 6:[address] [facility] [address] [place] [address] Carlota Jin MD [address] [place] [phone] documented as of this encounter Procedures Procedure Name Priority Date/Time Associated Diagnosis Comments HEMODIALYSIS Routine 10/23/2024 6:26 EST ESRD (end stage renal disease) ([facility]) documented in this encounter Visit Diagnoses Diagnosis ESRD (end stage renal disease) ([facility])- Primary End stage renal disease Hypoalbuminemia Other disorders of plasma protein metabolism Secondary hyperparathyroidism ([facility]) Secondary hyperparathyroidism (of renal origin) documented in this encounter Administered Medications Inactive Administered Medications - up to 3 most recent administrations Medication Order MAR Action Action Date Dose Rate Site acetaminophen (TYLENOL) tablet 650 mg 650 mg, oral, EVERY 4 HOURS PRN, Starting on 10/23/24 at 1036, Until Wed10/23/24 at 1310, Pain, Routine, DialysisIndications:ESRD (end stage renal disease) ([facility]) Given 10/23/2024 10:15 EST 650 mg calcium carbonate (TUMS) tablet 500 mg (200 mg elemental calcium) 2 Tablet 2 Tablet, oral, ONCE IN DIALYSIS, 1 dose, On Wed10/23/24 at 0645, Routine, DialysisIndications:ESRD (end stage renal disease) ([facility]),Secondary hyperparathyroidism ([facility]) Given 10/23/2024 6:31 EST 2 Tablets dextrose 50 % solution 12.5 g 12.5 g, intravenous, NOW X1, 1 dose, On Wed10/23/24 at 1100, RoutineIndications:ESRD (end stage renal disease) ([facility]) Given 10/23/2024 10:15 EST 12.5 g Given 10/23/2024 9:04 EST 12.5 g epoetin ken (EPOGEN) 20,000 unit/2 mL injection 5,000 Units 5,000 Units, intravenous, ONCE IN DIALYSIS, 1 dose, On Wed10/23/24 at 0645, Routine, DialysisIndications:ESRD (end stage renal disease) ([facility]) Given 10/23/2024 6:38 EST 5,000 Units heparin injection 3,000 Units 3,000 Units, intravenous, ONCE IN DIALYSIS, 1 dose, On Wed10/23/24 at 0645, Routine, Dialysis, Now x1 bolus 1500 units to be given at the beginning of dialysis 500 units/hour to be given over the course of dialysis (3000 units total). Stop 1 hour prior to end of treatment. To be administered per Policy [id number].Indications:ESRD (end stage renal disease) ([facility]) Given 10/23/2024 6:38 EST 3,000 Units LiquaCel liquid protein liquid 30 mL 30 mL, oral, ONCE IN DIALYSIS, 1 dose, On Wed10/23/24 at 0645, Patient's flavor preference: either, Routine, DialysisIndications:ESRD (end stage renal disease) ([facility]),Hypoalbuminemia Given 10/23/2024 6:31 EST 30 mL documented in this encounter Orders Dialysis Count Last Ordered Date First Orde red Date HEMODIALYSIS 1 10/23/2024 documented in this encounter Care Teams Soda Fountain Operator Relationship Specialty Start Date End Date Ken Greer MD [facility] [place] [address] PCP - General 07/07/23 Kiel Powers Crib Tender Nephrology 05/31/24 documented as of this encounter
--- OUTSIDE RECORDS SUMMARY | 2024-12-05 11:55 | XMS_ITS | Encounter Summary ---
Author Organization [facility] Address [address] [place] [address] Care Team Providers Care Access Manager Name Role Phone Ken Greer MD Primary Care Provider [phone] Kiel Poewrs Unavailable Unavailable Reason for Visit * Episode Based Medications (Routine) - New Request Specialty Diagnoses / Procedures Referred By Nader gardiner Referred To Contact Diagnoses ESRD (end stage renal disease) ([facility]) Carlota Jin MD [address] [place] [address], [facility] [address] [place] [address] Phone: tel: fax: [facility] [place] [address] [place] [address] Phone: tel: fax: Referral ID Status Reason Start Date Expiration Date V isits Requested Visits Authorized [id number] New Request 03/17/2024 1 1 Encounter Details Date Type Department Care Team (Latest Contact Info) Description 10/11/2024 6:45 EST Treatment [facility] [address] [place] [id number] Carlota Jin MD [address] [place] [address], [facility] [address] [place] [phone] ESRD (end stage renal disease) ([facility]) (Primary Dx); Hypoalbuminemia; Secondary [facility] Social History Tobacco Use Types Packs/Day [...] time in the past 12 m [facility], were you homeless or living in a fpc (including now)? No 05/30/2024 Interpersonal Safety Answer [...] the past 12 months has th e [facility], gas, oil, or water [employer] threatened to shut off services in your [...] - Temperature - - Respiratory Rate 16 10/11/2024 0621 EST Oxygen Saturation - - Inhaled Oxygen Concentration - - Weight 80.3 kg (177 lb 0.5 oz) 10/11/[address] Height - - Body Mass Index 25.4 07/20/2024 1359 EDT documented in this encounter [...] Progress Notes * Marcela Cox RN - 10/11/2024 0645 EST Mid tx BS check- 91, 25 ml Dextrose solution given per Dr. Jin d/t swallowing issues 15 min recheck- 105, no intervention needed 1 hr recheck- 87, 25 ml Dextrose solution given per Dr. Davin alas swallowing issues 15 min recheck- 139, no intervention needed documented in this encounter Miscellaneous Notes * Flowsheet Note - Marcela Cox RN - 10/11/2024 1134 EST 10/11/24 1044 Post-Hemodialysis Assessment Total Blood Processed (L) 89.84 Liters On Line Clearance: spKt/V 1.54 spKt/V Dialyzer Clearance Lightly streaked Treatment UFR (ml:kg:hr) 13 ml:kg:hr Fluid Removed (L) 4.3 L Post-Dialysis Scale Weight 93.5 kg (206 lb 2.1 oz) Wheelchair Weight 17.2 kg (37 lb 14.7 oz) Prosthesis Weight 0 kg (0 lb) Post-Treatment Weight (kg) 76.3 Treatment Weight Change (kg) 4 kg Day Target Weight (kg) 76.5 Post Sitting/Lying BP 160/75 Post Sitting/Lying pulse 62 Temp 36.4 ??C (97.5 ??F) Temp src Temporal Minutes Short -242 Post access assessment AVF/AFG Hemostasis achieved Yes Note 10 minute hold both sites Orientation Alert and Oriented x3 Yes Time Yes Place Yes Person Yes Cooperative Yes Disoriented No Discharge Ambulation Methods Departs via w/c Wrap up items Patient Response to Treatment Tolerated tx well. Removed 4.3L UF goal without difficulty. Comments see alternate Rn note for BS readings & interventions documented in this encounter Plan of Treatment Upcoming Encounters Date Type Department Care Team (Late st Contact Info) Description 12/06/2024 6:45 EST Treatment [facility] [address] [place], [place] [phone] Carlota Jin MD [address] [place] [phone] 12/08/2024 6:45 EST Treatment [facility] [address] [place], [place] [phone] Carlota Jin MD [address] [place] [phone] 12/11/2024 6:45 EST Treatment [facility] [address] [place], [place] [phone] Carlota Jin MD [address] [place] [phone] 12/13/2024 6:45 EST Treatment [facility] [address] [place], [place] [phone] Carlota Jin MD [address] [place] [phone] 12/15/2024 6:45 EST Treatment [facility] - [place] [address] [place], [place] [phone] Carlota Jin MD 1 [facility], [facility] [address] [place] [phone] 12/18/2024 6:45 EST Treatment [facility] [place] [address] [place], [place] [phone] Carlota Jin MD 1 [facility], [facility] [address] [place] [phone] 12/20/2024 6:45 EST Treatment [facility] [place] [address] [place], [place] [phone] Carlota Jin MD 1 [facility], [facility] [address] [place] [phone] 12/22/2024 6:45 EST Treatment [facility] [place] [address] [place], [place] [phone] Carlota Jin MD 1 [facility], [facility] [address] [place] [phone] 12/25/2024 6:45 EST Treatment [facility] [place] [address] [place], [place] [phone] Carlota Jin MD 1 [facility], [facility] [address] [place] [phone] 12/27/2024 6:45 EST Treatment [facility] [place] [address] [place], [place] [phone] Carlota Jin MD 1 [facility], [facility] [address] [place] [phone] 12/29/2024 6:45 EST Treatment [facility] [place] [address] [place], [place] [phone] Carl[facility] MD [facility], [facility] [address] [place] [phone] 01/01/2025 6:45 EDT Treatment [facility] [place] [address] [place], [place] [phone] Carlota Jin MD 1 [facility], [address] [phone] 01/03/2025 6:45 EDT Treatment [facility] [place] [address] [place], [place] [id number] Carlota Jin MD 1 [facility], [address] [phone] 01/05/2025 6:45 EDT Treatment [facility] [place] [address] [place], [place] [phone] Carlota Jin MD 1 [facility], [facility] [address] [place] [phone] 01/08/2025 6:45 EDT Treatment [facility] [place] [address] [place], [place] [phone] Carlota Jin MD 1 [facility], [facility] [address] [place] [phone] 01/10/2025 6:45 EDT Treatment [facility] [place] [address] [place], [place] [id number] Carlota Jin MD 1 [facility], [facility] [address] [place] [phone] 01/12/2025 6:45 EDT Treatment [facility] [place] [address] [place], [place] [id number] Carlota Jin MD 1 [facility], [facility] [address] [place] [phone] 01/15/2025 6:45 EDT Treatment [facility] [place] [address] [place], [place] [id number] Carlota Jin MD 1 [facility], [address] [phone] 01/17/2025 6:45 EDT Treatment [facility] [place] [address] [place], [place] [id number] Carlota Jin MD 1 [facility], [facility] [address] [place] [phone] 01/19/2025 6:45 EDT Treatment [facility] - [place] [address] [place], [place] [phone] Carlota Jin MD 1 [facility], [facility] [address] [place] [phone] 01/22/2025 6:45 EDT Treatment [facility] [place] [address] [place], [place] [id number] Carlota Jin MD 1 [facility], [facility] [address] [place] [phone] 01/24/2025 6:45 EDT Treatment [facility] - [place] [address] [place] [address] Carlota Jin MD 1 [facility], [address] [phone] 01/26/2025 6:45 EDT Treatment [facility] [place] [address] [place], [place] [id number] Carlota Jin MD 1 [facility], [address] [phone] 01/29/2025 6:45 EDT Treatment [facility] [place] [address] [place] [address] Carlota Jin MD 1 [facility], [address] [phone] 01/31/2025 6:45 EDT Treatment [facility] [place] [address] [place], [place] [id number] Carlota Jin MD 1 [facility], [address] [phone] 02/02/2025 6:45 EDT Treatment [facility] [place] [address] [place], [place] [id number] Carlota Jin MD 1 [facility], [facility] [address] [place] [phone] 02/05/2025 6:45 EDT Treatment [facility] [place] [address] [place], [place] [id number] Carlota Jin MD 1 [facility], [facility] [address] [place] [phone] 02/07/2025 6:45 EDT Treatment [facility] - [place] [address] [place], [place] [id number] Carlota Jin MD 1 [facility], [facility] [address] [place] [phone] 02/09/2025 6:45 EDT Treatment [facility] - [place] [address] [place], [place] [id number] Carlota Jin MD 1 [facility], [facility] [address] [place] [phone] 02/12/2025 6:45 EDT Treatment [facility] [place] [address] [place], [place] [phone] Carlota Jin MD 1 [facility], [facility] [address] [place] [phone] 02/14/2025 6:45 EDT Treatment [facility] [address] [place], [place] [id number] Carlota Jin MD 1 [facility], [facility] [address] [place] [phone] 02/16/2025 6:45 EDT Treatment [facility] [place] [address] [place], [place] [id number] Carlota Jin MD 1 [facility], [facility] [address] [place] [phone] 02/19/2025 6:45 EDT Treatment [facility] [place] [address] [place], [place] [id number] Carlota Jin MD 1 [facility], [facility] [address] [place] [phone] 02/21/2025 6:45 EDT Treatment [facility] - [place] [address] [place], [place] [id number] Carl[facility] MD [facility], [facility] [address] [place] [phone] documented as of this encounter Procedures Procedure Name Priority Date/Time Associated Diagnosis Comments COMPLETE BLOOD COUNT Routine 10/11/2024 6:30 EST ESRD (end stage renal disease) ([facility]) HEMODIALYSIS Routine 10/11/2024 6:21 EST ESRD (end stage renal disease) ([facility]) documented in this encounter Results * (ABNORMAL) COMPLETE BLOOD COUNT (10/11/2024 6:30 EST) WBC 8.60 4.00 - 10.40 K/cmm 10/11/2024 23:11 [facility] RBC 3.53(L) 4.36 - 5.78 M/cmm 10/11/2024 23:11 [facility] Hemoglobin 10.4(L) 13.8 - 17.3 g/dL 10/11/2024 23:11 [facility] HCT 31.2(L) 39.5 - 50.2 % 10/11/2024 23:11 [facility] MCV 88 81 - 95 fL 10/11/2024 23:11 [facility] MCH 29.5 27.6 - 33.0 pg 10/11/2024 23:11 [facility] MCHC 33.3 32.8 - 36.4 g/dL 10/11/2024 23:11 [facility] RDW-CV 15.3(H) <14.2 % 10/11/2024 23:11 [facility] RDW-SD 49.8(H) <46.0 fl 10/11/2024 23:11 [facility] PLT 206 141 - 377 K/cmm 10/11/2024 23:11 [facility] MPV 12.3 9.5 - 12.7 fL 10/11/2024 23:11 [facility] Blood VENOUS BLOOD / Unknown Venipuncture / Unknown 10/11/2024 6:30 EST 10/11/2024 6:30 EST us Carlota Jin MD HEMATOLOGY & PF4 ORDERABL ES Final Result Performing Organization Address City/State/[facility] Co de Phone Number [facility] [address] [place], [place] [phone] documented in this encounter Visit Diagnoses Diagnosis ESRD (end stage renal disease) ([facility])- Primary End stage renal disease Hypoalbuminemia Other disorders of plasma protein metabolism Secondary hyperparathyroidism ([facility]) Secondary hyperparathyroidism (of renal origin) documented in this encounter Administered Medications Inactive Administered Medications - up to 3 most recent administrations Medication Order MAR Action Action Date Dose Rate Site acetaminophen (TYLENOL) tablet 650 mg 650 mg, oral, EVERY 4 HOURS PRN, Starting on Wed10/11/24 at 0905, Until Wed10/11/24 at 1335, Pain, Routine, DialysisIndications:ESRD (end stage renal disease) ([facility]) Given 10/11/2024 9:05 EST 650 mg calcium carbonate (TUMS) tablet 500 mg (200 mg elemental calcium) 2 Tablet 2 Tablet, oral, ONCE IN DIALYSIS, 1 dose, On Wed10/11/24 at 0645, Routine, DialysisIndications:ESRD (end stage renal disease) ([facility]),Secondary hyperparathyroidism ([facility]) Given 10/11/2024 6:43 EST 2 Tablets dextrose 50 % solution 12.5 g 12.5 g, intravenous, NOW X1, 1 dose, On Wed10/11/24 at 0930, RoutineIndications:ESRD (end stage renal disease) ([facility]) Given 10/11/2024 10:45 EST 12.5 g Given 10/11/2024 9:15 EST 12.5 g heparin injection 3,000 Units 3,000 Units, intravenous, ONCE IN DIALYSIS, 1 dose, On Wed10/11/24 at 0645, Routine, Dialysis, Now x1 bolus 1500 units to be given at the beginning of dialysis 500 units/hour to be given over the course of dialysis (3000 units total). Stop 1 hour prior to end of treatment. To be administered per Policy [id number].Indications:ESRD (end stage renal disease) ([facility]) Given 10/11/2024 6:43 EST 3,000 Units LiquaCel liquid protein liquid 30 mL 30 mL, oral, ONCE IN DIALYSIS, 1 dose, On Wed10/11/24 at 0645, Patient's flavor preference: either, Routine, DialysisIndications:ESRD (end stage renal disease) ([facility]),Hypoalbuminemia Given 10/11/2024 6:44 EST 30 mL documented in this encounter Orders Dialysis Count Last Ordered Date First Orde red Date HEMODIALYSIS 1 10/11/2024 documented in this encounter Care Teams Access Manager Relationship Specialty Start Date End Date Ken Greer MD [address] [place] [address] PCP - General 07/07/23 Kiel Powers Shipping Coordinator Nephrology 05/31/24 documented as of this encounter
--- OUTSIDE RECORDS SUMMARY | 2024-12-05 11:55 | XMS_ITS | Encounter Summary ---
Author Organization [facility] Address [address] [place] [address] Care Team Providers Care Refrigeration Lead Name Role Phone Ken Greer MD Primary Care Provider [phone] Kiel Powers Unavailable Unavailable Reason for Visit * Episode Based Medications (Routine) - New Request Specialty Diagnoses / Procedures Referred By Nader gardiner Referred To Contact Diagnoses ESRD (end stage renal disease) ([facility]) Carlota Jin MD [address] [place] [address], [facility] [address] [place] [address] Phone: tel: fax: [facility] [place] [address] [place] [address] Phone: tel: fax: Referral ID Status Reason Start Date Expiration Date V isits Requested Visits Authorized [id number] New Request 03/17/2024 1 1 Encounter Details Date Type Department Care Team (Latest Contact Info) Description 10/06/2024 6:45 EST Treatment [facility] [address] [place] [id number] Carlota Jin MD [address] [place] [address], [facility] [address] [place] [address] ESRD (end stage renal disease) ([facility]) (Primary Dx); Hypoalbuminemia; Secondary [facility]athy[facility] Social History Tobacco Use Types Packs/Day Years Used Date Smoking Tobacco: Every Day Cigarettes 1 26.1 Started: 1998 Smokeless Tobacco: Never Alcohol Use Standard Drinks/Week Comments Yes 0 (1 standard drink = 0.6 oz pur e alcohol) Socially [facility] Utilities Answer Date Recorded In the [...] any time in the past 12 m [facility], were you homeless or living in a alf (including now)? No 05/30/2024 Interpersonal Safety Answer [...] the past 12 months has th e [employer], gas, oil, or water [employer] threatened to shut off services in your [...] - Temperature - - Respiratory Rate 16 10/06/2024 0624 EST Oxygen Saturation - - Inhaled Oxygen Concentration - - Weight 81.4 kg (179 lb 7.3 oz) 10/06/[address] Height - - Body Mass Index 25.75 07/20/2024 1359 EDT documented in this encounter [...] Progress Notes * Marcela Cox RN - 10/06/2024 0645 EST Mid tx BS check 135- no intervention needed Post tx BS check 101- no intervention needed. documented in this encounter Miscellaneous Notes * Flowsheet Note - Marcela Cox RN - 10/06/2024 1342 EST 10/06/24 1038 Post-Hemodialysis Assessment Total Blood Processed (L) 90.6 Liters On Line Clearance: spKt/V 1.58 spKt/V Dialyzer Clearance Lightly streaked Treatment UFR (ml:kg:hr) 13.15 ml:kg:hr Critline refill Not done Fluid Removed (L) 4.5 L Post-Dialysis Scale Weight 98.2 kg (216 lb 7.9 oz) Wheelchair Weight 20.9 kg (46 lb 1.2 oz) Prosthesis Weight 0 kg (0 lb) Post-Treatment Weight (kg) 77.3 Treatment Weight Change (kg) 4.1 kg Day Target Weight (kg) 77.4 Post Sitting/Lying BP 187/90 Post Sitting/Lying pulse 65 Temp 36.5 ??C (97.7 ??F) Temp src Temporal Minutes Short -242 Post access assessment Bruit present: Yes Thrill [...] Contact Info) Description 12/06/2024 6:45 EST Treatment [facility] [address] [place], [place] [phone] Carlota Jin MD 1 [facility], [facility] [address] [place] [phone] 12/08/2024 6:45 EST Treatment [facility] [address] [place], [place] [phone] Carlota Jin MD [address] [place] [phone] 12/11/2024 6:45 EST Treatment [facility] [address] [place], [place] [id number] Carlota Jin MD 1 [facility], [facility] [address] [place] [phone] 12/13/2024 6:45 EST Treatment [facility] [address] [place], [place] [phone] Carlota Jin MD [address] [place] [phone] 12/15/2024 6:45 EST Treatment [facility] [place] [address] [place], [place] [id number] Carlota Jin MD 1 [facility], [facility] [address] [place] [phone] 12/18/2024 6:45 EST Treatment [facility] [place] [address] [place], [place] [phone] Carlota Jin MD 1 [facility], [facility] [address] [place] [phone] 12/20/2024 6:45 EST Treatment [facility] [place] [address] [place], [place] [phone] Carlota Jin MD 1 [facility], [facility] [address] [place] [phone] 12/22/2024 6:45 EST Treatment [facility] [place] [address] [place], [place] [phone] Carlota Jin MD 1 [facility], [facility] [address] [place] [phone] 12/25/2024 6:45 EST Treatment [facility] [place] [address] [place], [place] [phone] Carlota Jin MD 1 [facility], [facility] [address] [place] [phone] 12/27/2024 6:45 EST Treatment [facility] [place] [address] [place], [place] [phone] Carlota Jin MD 1 [facility], [facility] [address] [place] [phone] 12/29/2024 6:45 EST Treatment [facility] [place] [address] [place], [place] [address] Carlota Jin MD 1 [facility], [facility] [address] [place] [phone] 01/01/2025 6:45 EDT Treatment [facility] [place] [address] [place], [place] [phone] Carlota Jin MD 1 [facility], [facility] [address] [place] [phone] 01/03/2025 6:45 EDT Treatment [facility] [place] [address] [place], [place] [phone] Carlota Jin MD 1 [facility], [facility] [address] [place] [phone] 01/05/2025 6:45 EDT Treatment [facility] [place] [address] [place], [place] [phone] Carlota Jin MD 1 [facility], [facility] [address] [place] [phone] 01/08/2025 6:45 EDT Treatment [facility] [place] [address] [place], [place] [address] Carlota Jin MD 1 [facility], [facility] [address] [place] [phone] 01/10/2025 6:45 EDT Treatment [facility] [place] [address] [place], [place] [phone] Carlota Jin MD 1 [facility], [facility] [address] [place] [phone] 01/12/2025 6:45 EDT Treatment [facility] [place] [address] [place], [place] [phone] Carlota Jin MD [address] [place] [address], [address] [phone] 01/15/2025 6:45 EDT Treatment [facility] [place] [address] [place], [place] [phone] Carlota Jin MD [address] [place] [address], [address] [phone] 01/17/2025 6:45 EDT Treatment [facility] [place] [address] [place], [place] [phone] Carlota Jin MD [address] [place] [address], [facility] [address] [place] [phone] 01/19/2025 6:45 EDT Treatment [facility] [place] [address] [place], [place] [phone] Carlota Jin MD 1 [facility], [facility] [address] [place] [phone] 01/22/2025 6:45 EDT Treatment [facility] [place] [address] [place], [place] [phone] Carlota Jin MD 1 [facility], [facility] [address] [place] [phone] 01/24/2025 6:45 EDT Treatment [facility] [place] [address] [place], [place] [phone] Carlota Jin MD 1 [facility], [facility] [address] [place] [phone] 01/26/2025 6:45 EDT Treatment [facility] [place] [address] [place], [place] [phone] Carlota Jin MD 1 [facility], [facility] [address] [place] [phone] 01/29/2025 6:45 EDT Treatment [facility] [place] [address] [place] [address] Carlota Jin MD 1 [facility], [facility] [address] [place] [phone] 01/31/2025 6:45 EDT Treatment [facility] [place] [address] [place] [address] Carlota Jin MD 1 [facility], [facility] [address] [place] [phone] 02/02/2025 6:45 EDT Treatment [facility] [place] [address] [place], [place] [phone] Carlota Jin MD 1 [facility], [facility] [address] [place] [phone] 02/05/2025 6:45 EDT Treatment [facility] [place] [address] [place], [place] [phone] Carlota Jin MD 1 [facility], [facility] [address] [place] [phone] 02/07/2025 6:45 EDT Treatment [facility] [place] [address] [place], [place] [phone] Carlota Jin MD 1 [facility], [facility] [address] [place] [phone] 02/09/2025 6:45 EDT Treatment [facility] [place] [address] [place], [place] [phone] Carlota Jin MD 1 [facility], [facility] [address] [place] [phone] 02/12/2025 6:45 EDT Treatment [facility] [place] [address] [place], [place] [phone] Carlota Jin MD 1 [facility], [facility] [address] [place] [phone] 02/14/2025 6:45 EDT Treatment [facility] [place] [address] [place], [place] [phone] Carlota Jin MD 1 [facility], [facility] [address] [place] [phone] 02/16/2025 6:45 EDT Treatment [facility] [place] [address] [place], [place] [phone] Carlota Jin MD 1 [facility], Level [address] [place] [phone] 02/19/2025 6:45 EDT Treatment [facility] [place] [address] [place], [place] [phone] Carlota Jin MD 1 [facility], [facility] [address] [place] [phone] 02/21/2025 6:45 EDT Treatment [facility] [address] [place], [place] [phone] Carlota Jin MD 1 [facility], [facility] [address] [place] [phone] documented as of this encounter Procedures Procedure Name Priority Date/Time Associated Diagnosis Comments POCT GLUCOSE, INTERFACED Routine 10/06/2024 10:35 EST HEMODIALYSIS Routine 10/06/2024 6:24 EST ESRD (end stage renal disease) ([facility]) documented in this encounter Results * (ABNORMAL) POCT GLUCOSE, INTERFACED (10/06/2024 10:35 EST) Glucose, POC 101(H) 70 - 100 mg/dL 10/09/2024 8:[address] [facility] HN LAB POC COMMENT (GLUCOSE) Test Performed by Nursing Services 10/09/2024 8:[address] [facility] Blood CAPILLARY BLOOD / Unknown 10/06/2024 10:35 EST 10/09/2024 8:23 EST us Carlota Jin MD POINT OF CARE TEST ORDERA BLES Final Result [facility] [address] [place] [address] documented in this encounter Visit Diagnoses Diagnosis ESRD (end stage renal disease) ([facility])- Primary End stage renal disease Hypoalbuminemia Other disorders of plasma protein metabolism Secondary hyperparathyroidism ([facility]) Secondary hyperparathyroidism (of renal origin) documented in this encounter Administered Medications Inactive Administered Medications - up to 3 most recent administrations Medication Order MAR Action Action Date Dose Rate Site acetaminophen (TYLENOL) tablet 650 mg 650 mg, oral, EVERY 4 HOURS PRN, Starting on Wed10/06/24 at 1049, Until Wed10/06/24 at 1542, Pain, Routine, DialysisIndications:ESRD (end stage renal disease) ([facility]) Given 10/06/2024 10:49 EST 650 mg calcium carbonate (TUMS) tablet 500 mg (200 mg elemental calcium) 2 Tablet 2 Tablet, oral, ONCE IN DIALYSIS, 1 dose, On Wed10/06/24 at 0645, Routine, DialysisIndications:ESRD (end stage renal disease) ([facility]),Secondary hyperparathyroidism ([facility]) Given 10/06/2024 6:39 EST 2 Tablets heparin injection 3,000 Units 3,000 Units, intravenous, ONCE IN DIALYSIS, 1 dose, On Wed10/06/24 at 0645, Routine, Dialysis, Now x1 bolus 1500 units to be given at the beginning of dialysis 500 units/hour to be given over the course of dialysis (3000 units total). Stop 1 hour prior to end of treatment. To be administered per Policy [id number].Indications:ESRD (end stage renal disease) ([facility]) Given 10/06/2024 6:38 EST 3,000 Units LiquaCel liquid protein liquid 30 mL 30 mL, oral, ONCE IN DIALYSIS, 1 dose, On Wed10/06/24 at 0645, Patient's flavor preference: either, Routine, DialysisIndications:ESRD (end stage renal disease) ([facility]),Hypoalbuminemia Given 10/06/2024 6:38 EST 30 mL documented in this encounter Orders Dialysis Count Last Ordered Date First Orde red Date HEMODIALYSIS 1 10/06/2024 documented in this encounter Care Teams Refrigeration Lead Relationship Specialty Start Date End Date Ken [place] [address] PCP - General 07/07/23 Kiel Powers Catalyst Supervisor Nephrology 05/31/24 documented as of this encounter
--- OUTSIDE RECORDS SUMMARY | 2024-12-05 11:55 | XMS_ITS | Encounter Summary ---
Author Organization [facility] Address [address] [place] [address] Care Team Providers Care Fire Patroller Name Role Phone Ken Greer MD Primary Care Provider [phone] Kiel Powers Unavailable Unavailable Reason for Visit * Episode Based Medications (Routine) - New Request Specialty Diagnoses / Procedures Referred By Nader gardiner Referred To Contact Diagnoses ESRD (end stage renal disease) ([facility]) Carlota Jin MD [address] [place] [address], [facility] [place] [address] Phone: tel: fax: [facility] [place] [address] [place] [address] Phone: tel: fax: Referral ID Status Reason Start Date Expiration Date V isits Requested Visits Authorized [id number] New Request 03/17/2024 1 1 Encounter Details Date Type Department Care Team (Latest Contact Info) Description 10/13/2024 6:45 EST Treatment [facility] [address] [place] [id number] Carlota Jin MD [address] [place] [address], [facility] [place] [address] ESRD (end stage renal disease) ([facility]) (Primary Dx); Hypoalbuminemia; Secondary hyperparathyroidism ([facility]) Social History Tobacco Use Types Packs/Day Years Used Date Smoking Tobacco: Every Day Cigarettes 1 26.1 Started: 1998 Smokeless Tobacco: Never Alcohol Use Standard Drinks/Week Comments Yes 0 (1 standard drink = 0.6 oz pur e alcohol) Socially [facility] Utilities Answer Date Recorded In the [...] any time in the past 12 m [facility], were you homeless or living in a senior care (including now)? No 05/30/2024 Interpersonal Safety Answer [...] the past 12 months has th e [employer], gas, oil, or water [employer] threatened to shut off services in your [...] - Temperature - - Respiratory Rate 16 10/13/2024 0620 EST Oxygen Saturation - - Inhaled Oxygen Concentration - - Weight 76.4 kg (168 lb 6.9 oz) 10/13/[address] Height - - Body Mass Index 24.17 07/20/2024 1359 EDT documented in this encounter [...] Progress Notes * Marcela Cox RN - 10/13/2024 0645 EST Mid tx BS check- 113, no intervention required End of tx BS check- 95, Dextrose solution 25ml given per Dr. Jin for swallowing issues 15 min recheck- 108, no intervention needed documented in this encounter Miscellaneous Notes * Flowsheet Note - Marcela Cox RN - 10/13/2024 1126 EST 10/13/24 1041 Post-Hemodialysis Assessment Total Blood Processed (L) 90.14 Liters On Line Clearance: spKt/V 1.58 spKt/V Dialyzer Clearance Lightly streaked Treatment UFR (ml:kg:hr) 11.65 ml:kg:hr Critline refill Not done Fluid Removed (L) 3.5 L Post-Dialysis Scale Weight 92 kg (202 lb 13.2 oz) Wheelchair Weight 17.2 kg (37 lb 14.7 oz) Prosthesis Weight 0 kg (0 lb) Post-Treatment Weight (kg) 74.8 Treatment Weight Change (kg) 3.5 kg Day Target Weight (kg) 75.3 Post Sitting/Lying BP 190/84 Post Sitting/Lying pulse 66 Temp 36.6 ??C (97.9 ??F) Temp src Temporal Minutes Short -241 Post access assessment AVF/AFG Hemostasis achieved Yes Note 10 minute hold with blue clamps Orientation Alert and Oriented x3 Yes Time Yes Place Yes Person Yes Cooperative Yes Disoriented No Discharge Ambulation Methods Departs via w/c Wrap up items Patient Response to Treatment Tolerated tx well. Removed 3.5L UF goal without difficulty. Comments see alternate RN note for BS readings * Dialysis Rounding - Paris Quintanilla NP - 10/13/2024 7415 EST Dialysis Provider's Routine Assessment Gerson Bruner was seen and examined as appropriate during Dialysis. Pertinent lab results were reviewed. Changes since last visit: Continues running low sugars but did not require IV dextrose today. Changes to current prescriptions/orders: None Weights and pressures reviewed. 3 months ago he was in a similar blood pressure range 170-200's mmHg systolic. He then had a period of better blood pressures 140s-160's mmHg systolic more often. Pressures are back up again this month. Unclear if his medications may have changed. Hypoglycemia may beplaying a role in headaches or they may be due to the strain of dialysis, potentially with circulatory changes during treatment in a patient with arterial disease. Patient has told this insurance writer in thepast that he does not sleep well at night and that may be a contributing factor. Unknown to this insurance writer if patient needs corrective lenses although he was seen for severe bilateral chronic non-proliferative diabetic retinopathy by ophthalmology in 2020. Consider switching amlodipine to nifedipine for enhanced BP control however, headaches may decreaseif blood glucose stabilizes. Multiple staff members have reached out to PCP and patient's spouse caregiver about insulin changes. Paris Quintanilla NP documented in this encounter Plan of Treatment Upcoming Encounters Date Type Department Care Team (Late st Contact Info) Description 12/06/2024 6:45 EST Treatment [facility] [place] [address] [place] [id number] Carlota Jin MD 1 [facility] [address] [place] [address] 12/08/2024 6:45 EST Treatment [facility] [place] [address] [place], [place] [id number] Carlota Jin MD 1 [facility], Level [address] [place] [phone] 12/11/2024 6:45 EST Treatment [facility] [place] [address] [place], [place] [id number] Carlota Jin MD 1 [facility], [facility] [place] [phone] 12/13/2024 6:45 EST Treatment [facility] [place] [address] [place], [place] [address] [phone] Carlota Jin MD 1 [facility], [facility] [place] [phone] 12/15/2024 6:45 EST Treatment [facility] [place] [address] [place], [place] [id number] Carlota Jin MD 1 [facility], [facility] [address] [place] [phone] 12/18/2024 6:45 EST Treatment [facility] [place] [address] [place], [place] [id number] Carlota Jin MD 1 [facility], [facility] [place] [phone] 12/20/2024 6:45 EST Treatment [facility] [place] [address] [place] [id number] Carlota Jin MD 1 [facility], [facility] [place] [phone] 12/22/2024 6:45 EST Treatment [facility] [place] [address] [place], [place] [id number] Carlota Jin MD 1 [facility], [facility] [place] [phone] 12/25/2024 6:45 EST Treatment [facility] [place] [address] [place], [place] [id number] Carlota Jin MD 1 [facility], [facility] [place] [phone] 12/27/2024 6:45 EST Treatment [facility] [place] [address] [place], [place] [id number] Carlota Jin MD 1 [facility], [facility] [place] [phone] 12/29/2024 6:45 EST Treatment [facility] [place] [address] [place] [address] Carlota Jin MD 1 [facility], [facility] [place] [phone] 01/01/2025 6:45 EDT Treatment [facility] [place] [address] [place], [place] [id number] Carlota Jin MD 1 [facility], [facility] [place] [phone] 01/03/2025 6:45 EDT Treatment [facility] [place] [address] [place], [place] [id number] Carlota Jin MD 1 [facility], [facility] [place] [phone] 01/05/2025 6:45 EDT Treatment [facility] [place] [address] [place], [place] [id number] Carlota Jin MD 1 [facility], [facility] [place] [phone] 01/08/2025 6:45 EDT Treatment [facility] [address] [place], [place] [phone] Carlota Jin MD [address] [place] [address], [facility] [place] [phone] 01/10/2025 6:45 EDT Treatment [facility] [address] [place], [place] [phone] Carlota Jin MD 1 [facility], [facility] [place] [phone] 01/12/2025 6:45 EDT Treatment [facility] [address] [place], [place] [id number] Carlota Jin MD 1 [facility], [facility] [place] [phone] 01/15/2025 6:45 EDT Treatment [facility] [place] [address] [place], [place] [id number] Carlota Jin MD 1 [facility], [facility] [place] [phone] 01/17/2025 6:45 EDT Treatment [facility] [place] [address] [place], [place] [id number] Carlota Jin MD 1 [facility], [address] [phone] 01/19/2025 6:45 EDT Treatment [facility] [place] [address] [place], [place] [id number] Carlota Jin MD 1 [facility], [address] [phone] 01/22/2025 6:45 EDT Treatment [facility] [place] [address] [place], [place] [id number] Carlota Jin MD [address] [phone] 01/24/2025 6:45 EDT Treatment [facility] [place] [address] [place], [place] [id number] Carlota Jin MD [address] [phone] 01/26/2025 6:45 EDT Treatment [facility] [place] [address] [place], [place] [id number] Carlota Jin MD 1 [facility], [facility] [place] [phone] 01/29/2025 6:45 EDT Treatment [facility] [place] [address] [place], [place] [id number] Carlota Jin MD 1 [facility], [facility] [place] [phone] 01/31/2025 6:45 EDT Treatment [facility] [place] [address] [place], [place] [id number] Carlota Jin MD 1 [facility], [facility] [place] [phone] 02/02/2025 6:45 EDT Treatment [facility] [place] [address] [place], [place] [id number] Carlota Jin MD 1 [facility], [facility] [place] [phone] 02/05/2025 6:45 EDT Treatment [facility] [place] [address] [place] [address] Carlota Jin MD 1 [facility], [facility] [place] [phone] 02/07/2025 6:45 EDT Treatment [facility] [place] [address] [place], [place] [id number] Carlota Jin MD 1 [facility], [facility] [place] [phone] 02/09/2025 6:45 EDT Treatment [facility] [place] [address] [place], [place] [id number] Carlota Jin MD 1 [facility], [facility] [place] [phone] 02/12/2025 6:45 EDT Treatment [facility] [place] [address] [place], [place] [id number] Carlota Jin MD [address] [place] [address], [address] [phone] 02/14/2025 6:45 EDT Treatment [facility] [place] [address] [place], [place] [id number] Carlota Jin MD [address] [place] [address], [address] [phone] 02/16/2025 6:45 EDT Treatment [facility] [place] [address] [place], [place] [id number] Carlota Jin MD [address] [place] [address], [facility] [place] [phone] 02/19/2025 6:45 EDT Treatment [facility] [place] [address] [place], [place] [id number] Carlota Jin MD [address] [place] [address], [facility] [address] [place] [phone] 02/21/2025 6:45 EDT Treatment [facility] [place] [address] [place], [place] [id number] Carlota Jin MD 1 [facility], Level [address] [place] [phone] documented as of this encounter Procedures Procedure Name Priority Date/Time Associated Diagnosis Comments POCT GLUCOSE, INTERFACED Routine 10/13/2024 10:21 EST HEMODIALYSIS Routine 10/13/2024 6:20 EST ESRD (end stage renal disease) ([facility]) documented in this encounter Results * POCT GLUCOSE, INTERFACED (10/13/2024 10:21 EST) Glucose, POC 95 70 - 100 mg/dL 10/13/2024 13:26 EST [facility] HN LAB POC COMMENT (GLUCOSE) Test Performed by Nursing Services 10/13/2024 13:26 EST [facility] Blood CAPILLARY BLOOD / Unknown 10/13/2024 10:21 EST 10/13/2024 13:26 EST us Carlota Jin MD POINT OF CARE TEST ORDERA BLES Final Result [facility] [address] [place] [address] documented in this encounter Visit Diagnoses Diagnosis ESRD (end stage renal disease) ([facility])- Primary End stage renal disease Hypoalbuminemia Other disorders of plasma protein metabolism Secondary hyperparathyroidism ([facility]) Secondary hyperparathyroidism (of renal origin) documented in this encounter Administered Medications Inactive Administered Medications - up to 3 most recent administrations Medication Order MAR Action Action Date Dose Rate Site acetaminophen (TYLENOL) tablet 650 mg 650 mg, oral, EVERY 4 HOURS PRN, Starting on Wed10/13/24 at 0937, Until Wed10/13/24 at 1326, Pain, Routine, DialysisIndications:ESRD (end stage renal disease) ([facility]) Given 10/13/2024 9:37 EST 650 mg calcium carbonate (TUMS) tablet 500 mg (200 mg elemental calcium) 2 Tablet 2 Tablet, oral, ONCE IN DIALYSIS, 1 dose, On 12/20/24 at 0645, Routine, DialysisIndications:ESRD (end stage renal disease) ([facility]),Secondary hyperparathyroidism ([facility]) Given 10/13/2024 6:26 EST 2 Tablets dextrose 50 % solution 12.5 g 12.5 g, intravenous, NOW X1, 1 dose, On Wed10/13/24 at 1115, RoutineIndications:ESRD (end stage renal disease) ([facility]) Given 10/13/2024 10:25 EST 12.5 g epoetin ken (EPOGEN) 20,000 unit/2 mL injection 5,000 Units 5,000 Units, intravenous, ONCE IN DIALYSIS, 1 dose, On Wed10/13/24 at 1000, Routine, DialysisIndications:ESRD (end stage renal disease) ([facility]) Given 10/13/2024 9:38 EST 5,000 Units heparin injection 3,000 Units 3,000 Units, intravenous, ONCE IN DIALYSIS, 1 dose, On Wed10/13/24 at 0645, Routine, Dialysis, Now x1 bolus 1500 units to be given at the beginning of dialysis 500 units/hour to be given over the course of dialysis (3000 units total). Stop 1 hour prior to end of treatment. To be administered per Policy [id number].Indications:ESRD (end stage renal disease) ([facility]) Given 10/13/2024 6:45 EST 3,000 Units LiquaCel liquid protein liquid 30 mL 30 mL, oral, ONCE IN DIALYSIS, 1 dose, On Wed10/13/24 at 0645, Patient's flavor preference: either, Routine, DialysisIndications:ESRD (end stage renal disease) ([facility]),Hypoalbuminemia Given 10/13/2024 6:24 EST 30 mL loperamide (IMODIUM) capsule 2 mg 2 mg, oral, 4 TIMES DAILY PRN, Starting on Wed10/13/24 at 0633, Until Wed10/13/24 at 1326, Diarrhea, Routine Given 10/13/2024 6:34 EST 2 mg documented in this encounter Orders Dialysis Count Last Ordered Date First Orde red Date HEMODIALYSIS 1 10/13/2024 documented in this encounter Care Teams Fire Patroller Relationship Specialty Start Date End Date Ken Greer MD [facility] [place] [address] PCP - General 07/07/23 Kiel Powers Parking Attendant Nephrology 05/31/24 documented as of this encounter
--- OUTSIDE RECORDS SUMMARY | 2024-12-05 11:55 | XMS_ITS | Encounter Summary ---
Author Organization [facility] Address [address] [place] [address] Care Team Providers Care Loading Unit Operator Crimping Name Role Phone Ken Greer MD Primary Care Provider [phone] Kiel Powers Unavailable Unavailable Reason for Visit * Episode Based Medications (Routine) - New Request Specialty Diagnoses / Procedures Referred By Nader gardiner Referred To Contact Diagnoses ESRD (end stage renal disease) ([facility]) Carlota Jin MD [address] [place] [address], [place] [address] [place] [address] Phone: tel: fax: [facility] [place] [address] [place] [address] Phone: tel: fax: Referral ID Status Reason Start Date Expiration Date V isits Requested Visits Authorized [id number] New Request 03/17/2024 1 1 Encounter Details Date Type Department Care Team (Latest Contact Info) Description 10/09/2024 6:45 EST Treatment [facility] [address] [place] [id number] Carlota Jin MD [address] [place] [address], [place] [address] [place] [address] ESRD (end stage renal disease) ([facility]) (Primary Dx); Hypoalbuminemia; Secondary hyperparathyroidism ([facility] Social History Tobacco Use Types Packs/Day Years Used Date Smoking Tobacco: Every Day Cigarettes 1 26.1 Started: 1998 Smokeless Tobacco: Never Alcohol Use Standard Drinks/Week Comments Yes 0 (1 standard drink = 0.6 oz pur e alcohol) Socially [facility] Utilities Answer Date Recorded In [...] time in the past [address] [facility], were you homeless or living in a senior living (including now)? No 05/30/2024 Interpersonal Safety Answer [...] the past 12 months has th e [employer], gas, oil, or water [employer] threatened to shut off services in your [...] - Temperature - - Respiratory Rate 16 10/09/2024 0620 EST Oxygen Saturation - - Inhaled Oxygen Concentration - - Weight 80.4 kg (177 lb 4 oz) 10/09/2024 0626 EST Height - - Body Mass Index [...] Progress Notes * Marcela Cox RN - 10/09/2024 0645 EST Mid tx BS check @ 0919- 93, 25ml Dextrose solution given per Dr. Jin order d/t swallowing issues 15 min recheck- 113 1 hr recheck(at end of tx) - 60, treated with cranberry juice and Dextrose gel per protocol 15 min recheck- 133 documented in this encounter Miscellaneous Notes * Flowsheet Note - Marcela Cox RN - 10/09/2024 1129 EST 10/09/24 1038 Post-Hemodialysis Assessment Total Blood Processed (L) 90.5 Liters On Line Clearance: spKt/V 1.54 spKt/V Dialyzer Clearance Lightly streaked Treatment UFR (ml:kg:hr) 13.38 ml:kg:hr Fluid Removed (L) 4.3 L Post-Dialysis Scale Weight 93.4 kg (205 lb 14.6 oz) Wheelchair Weight 17.1 kg (37 lb 11.2 oz) Prosthesis Weight 0 kg (0 lb) Post-Treatment Weight (kg) 76.3 Treatment Weight Change (kg) 4.1 kg Day Target Weight (kg) 76.6 Post Sitting/Lying BP 112/86 Post Sitting/Lying pulse 66 Temp 36.8 ??C (98.2 ??F) Temp src Temporal Minutes Short -241 [...] alternate RN note for BS readings and interventions. no concerns voiced post tx. documented in this encounter Plan of Treatment Upcoming Encounters Date Type Department Care Team (Late st Contact Info) Description 12/06/2024 6:45 EST Treatment [facility] [place] [address] [place], [place] [id number] Carlota Jin MD [address] [place] [phone] 12/08/2024 6:45 EST Treatment [facility] [address] [place], [place] [id number] Carlota Jin MD [address] [place] [phone] 12/11/2024 6:45 EST Treatment [facility] [address] [place], [place] [id number] Carlota Jin MD [address] [place] [phone] 12/13/2024 6:45 EST Treatment [facility] [address] [place], [place] [id number] Carlota Jin MD [address] [place] [phone] 12/15/2024 6:45 EST Treatment [facility] - [place] [address] [place], [place] [id number] Carlota Jin MD 1 [facility], [place] [address] [place] [phone] 12/18/2024 6:45 EST Treatment [facility] [place] [address] [place], [place] [id number] Carlota Jin MD 1 [facility], [place] [address] [place] [phone] 12/20/2024 6:45 EST Treatment [facility] [address] [place], [place] [id number] Carlota Jin MD 1 [facility], [place] [address] [place] [phone] 12/22/2024 6:45 EST Treatment [facility] [place] [address] [place], [place] [id number] Carlota Jin MD 1 [facility], [place] [address] [place] [phone] 12/25/2024 6:45 EST Treatment [facility] [place] [address] [place], [place] [id number] Carlota Jin MD 1 [facility], [place] [address] [place] [phone] 12/27/2024 6:45 EST Treatment [facility] [place] [address] [place] [address] Carlota Jin MD 1 [facility], [place] [address] [place] [phone] 12/29/2024 6:45 EST Treatment [facility] [place] [address] [place], [place] [id number] Carlota Jin MD 1 [facility][1[facility], [place] [address] [place] [phone] 01/01/2025 6:45 EDT Treatment [facility] [place] [address] [place] [address] Carlota Jin MD 1 [facility], [address] [phone] 01/03/2025 6:45 EDT Treatment [facility] [place] [address] [place], [place] [id number] Carlota Jin MD 1 [facility], [address] [phone] 01/05/2025 6:45 EDT Treatment [facility] [place] [address] [place] [address] Carlota Jin MD 1 [facility], [place] [address] [place] [phone] 01/08/2025 6:45 EDT Treatment [facility] [place] [address] [place], [place] [id number] Carlota Jin MD 1 [facility], [place] [address] [place] [phone] 01/10/2025 6:45 EDT Treatment [facility] [place] [address] [place], [place] [address] Carlota Jin MD 1 [facility], [place] [address] [place] [phone] 01/12/2025 6:45 EDT Treatment [facility] [place] [address] [place], [place] [id number] Carlota Jin MD [address] [place] [address], [place] [address] [place] [phone] 01/15/2025 6:45 EDT Treatment [facility] [place] [address] [place], [place] [address] Carlota Jin MD [address] [place] [address], [place] [address] [place] [phone] 01/17/2025 6:45 EDT Treatment [facility] [place] [address] [place], [place] [address] Carlota Jin MD [address] [place] [address], [place] [address] [place] [phone] 01/19/2025 6:45 EDT Treatment [facility] [place] [address] [place], [place] [id number] Carlota Jin MD [address] [place] [address], [place] [address] [place] [phone] 01/22/2025 6:45 EDT Treatment [facility] [place] [address] [place], [place] [address] Carlota Jin MD 1 [facility], [address] [phone] 01/24/2025 6:45 EDT Treatment [facility] [place] [address] [place] [address] Carlota Jin MD 1 [facility], [address] [phone] 01/26/2025 6:45 EDT Treatment [facility] - [place] [address] [place], [place] [id number] Carlota Jin MD 1 [facility], [address] [phone] 01/29/2025 6:45 EDT Treatment [facility] [place] [address] [place], [place] [id number] Carlota Jin MD 1 [facility], [address] [phone] 01/31/2025 6:45 EDT Treatment [facility] [place] [address] [place], [place] [id number] Carlota Jin MD [address] [phone] 02/02/2025 6:45 EDT Treatment [facility] [place] [address] [place], [place] [id number] Carlota Jin MD 1 [facility], [place] [address] [place] [phone] 02/05/2025 6:45 EDT Treatment [facility] [place] [address] [place], [place] [id number] Carlota Jin MD 1 [facility][1][facility], [place] [address] [place] [phone] 02/07/2025 6:45 EDT Treatment [facility] [place] [address] [place], [place] [id number] Carlota Jin MD 1 [facility], [place] [address] [place] [phone] 02/09/2025 6:45 EDT Treatment [facility] [place] [address] [place], [place] [id number] Carlota Jin MD 1 [facility], [place] [address] [place] [phone] 02/12/2025 6:45 EDT Treatment [facility] [place] [address] [place], [place] [id number] Carlota Jin MD 1 [facility][1[facility], [place] [address] [place] [phone] 02/14/2025 6:45 EDT Treatment [facility] [place] [address] [place], [place] [id number] Carlota Jin MD 1 [facility], [place] [address] [place] [phone] 02/16/2025 6:45 EDT Treatment [facility] [place] [address] [place], [place] [id number] Carlota Jin MD 1 [facility], [address] [phone] 02/19/2025 6:45 EDT Treatment [facility] - [place] [address] [place], [place] [id number] Carlota Jin MD 1 [facility], [address] [phone] 02/21/2025 6:45 EDT Treatment [facility] [place] [address] [place], [place] [id number] Carlota Jin MD 1 [facility], [address] [phone] documented as of this encounter Procedures Procedure Name Priority Date/Time Associated Diagnosis Comments HEMODIALYSIS Routine 10/09/2024 6:20 EST ESRD (end stage renal disease) ([facility]) documented in this encounter Visit Diagnoses Diagnosis ESRD (end stage renal disease) ([facility])- Primary End stage renal disease Hypoalbuminemia Other disorders of plasma protein metabolism Secondary hyperparathyroidism ([facility]) Secondary hyperparathyroidism (of renal origin) documented in this encounter Administered Medications Inactive Administered Medications - up to 3 most recent administrations Medication Order MAR Action Action Date Dose Rate Site acetaminophen (TYLENOL) tablet 650 mg 650 mg, oral, EVERY 4 HOURS PRN, Starting on Wed10/09/24 at 0923, Until Wed10/09/24 at 1330, Pain, Routine, DialysisIndications:ESRD (end stage renal disease) ([facility]) Given 10/09/2024 9:23 EST 650 mg calcium carbonate (TUMS) tablet 500 mg (200 mg elemental calcium) 2 Tablet 2 Tablet, oral, ONCE IN DIALYSIS, 1 dose, On Wed10/09/24 at 0645, Routine, DialysisIndications:ESRD (end stage renal disease) ([facility]),Secondary hyperparathyroidism ([facility]) Given 10/09/2024 6:24 EST 2 Tablets dextrose 40% gel 15 g of glucose 15 g of glucose, oral, NOW X1, 1 dose, On Wed10/09/24 at 1145, Routine Given 10/09/2024 11:00 EST 15 g of glucose dextrose 50 % solution 12.5 g 12.5 g, intravenous, NOW X1, 1 dose, On Wed10/09/24 at 0945, RoutineIndications:ESRD (end stage renal disease) ([facility]) Given 10/09/2024 9:23 EST 12.5 g heparin injection 3,000 Units 3,000 Units, intravenous, ONCE IN DIALYSIS, 1 dose, On Wed10/09/24 at 0645, Routine, Dialysis, Now x1 bolus 1500 units to be given at the beginning of dialysis 500 units/hour to be given over the course of dialysis (3000 units total). Stop 1 hour prior to end of treatment. To be administered per Policy [id number].Indications:ESRD (end stage renal disease) ([facility]) Given 10/09/2024 6:44 EST 3,000 Units LiquaCel liquid protein liquid 30 mL 30 mL, oral, ONCE IN DIALYSIS, 1 dose, On Wed10/09/24 at 0645, Patient's flavor preference: either, Routine, DialysisIndications:ESRD (end stage renal disease) ([facility]),Hypoalbuminemia Given 10/09/2024 6:24 EST 30 mL documented in this encounter Orders Dialysis Count Last Ordered Date First Orde red Date HEMODIALYSIS 1 10/09/2024 documented in this encounter Care Teams Loading Unit Operator Crimping Relationship Specialty Start Date End Date Ken Greer MD [address] [place] [address] PCP - General 07/07/23 Kiel Powers Premium Cancellation Clerk Nephrology 05/31/24 documented as of this encounter
--- OUTSIDE RECORDS SUMMARY | 2024-12-05 11:55 | XMS_ITS | Encounter Summary ---
Author Organization [facility] Address [address] [place] [address] Care Team Providers Care Locker Room Manager Name Role Phone Ken Greer MD Primary Care Provider [phone] Kiel Powers Unavailable Unavailable Reason for Visit * Episode Based Medications (Routine) - New Request Specialty Diagnoses / Procedures Referred By Nader gardiner Referred To Contact Diagnoses ESRD (end stage renal disease) ([facility]) Carlota Jin MD [address] [place] [address], [facility] [address] [place] [address] Phone: tel: fax: [facility] [place] [address] [place] [address] Phone: tel: fax: Referral ID Status Reason Start Date Expiration Date V isits Requested Visits Authorized [id number] New Request 03/17/2024 1 1 Encounter Details Date Type Department Care Team (Latest Contact Info) Description 10/20/2024 6:45 EST Treatment [facility] [address] [place] [id number] Carlota Jin MD [address] [place] [address], [facility] [address] [place] [address] ESRD (end stage renal disease) ([facility]) (Primary Dx); Hypoalbuminemia; Secondary [facility] Social History Tobacco Use Types Packs/Day Years Used Date Smoking Tobacco: Every Day Cigarettes 1 26.1 Started: 1998 Smokeless Tobacco: Never Alcohol Use Standard Drinks/Week Comments Yes 0 (1 standard drink = 0.6 oz pur e alcohol) Socially [facility] Utilities Answer Date Recorded In the past [...] any time in the past 12 m [facility], were you homeless or living [...] the past 12 months has th e [employer], gas, oil, or water Clinicient threatened to shut off services in your [...] - Temperature - - Respiratory Rate 16 10/20/2024 0621 EST Oxygen Saturation - - Inhaled Oxygen Concentration - - Weight 78.5 kg (173 lb 1 oz) 10/20/2024 0624 EST Height - - Body Mass Index 24.83 07/20/2024 1359 EDT documented in this encounter [...] Progress Notes * Marcela Cox RN - 10/20/2024 0645 EST Mid tx BS check - 93, 25ml Dextrose 50% solution given per Dr. Jin for swallowing issues 15 min recheck- 130, no intervention needed 1 hr recheck- 110, no intervention needed Post tx BS check- 109, no intervention needed documented in this encounter Miscellaneous Notes * Flowsheet Note - Marcela Cox RN - 10/20/2024 1112 EST 10/20/24 1039 Post-Hemodialysis Assessment Total Blood Processed (L) 90.77 Liters On Line Clearance: spKt/V 1.53 spKt/V Dialyzer Clearance Lightly streaked Treatment UFR (ml:kg:hr) 11.48 ml:kg:hr Final Critline Profile (%/hr) -1.4 Final Profile Profile A Critline refill Negative (32.4-32.0) Fluid Removed (L) 3.5 L Post-Dialysis Scale Weight 92.1 kg (203 lb 0.7 oz) Wheelchair Weight 17.1 kg (37 lb 11.2 oz) Prosthesis Weight 0 kg (0 lb) Post-Treatment Weight (kg) 75 Treatment Weight Change (kg) 3.5 kg Day Target Weight (kg) 75.5 Post Sitting/Lying BP (!) 171/92 Post Sitting/Lying pulse 66 Temp 36.9 ??C (98.4 ??F) Temp src Temporal Minutes Short -244 Post access assessment AVF/AFG Hemostasis achieved Yes Note 10 minute hold both sites Orientation Alert and Oriented x3 Yes Time Yes Place Yes Person Yes Cooperative Yes Disoriented No Discharge Ambulation Methods Departs via w/c Wrap up items Patient Response to Treatment Tolerated tx well. Removed 3.5L UF goal without difficulty. Comments see alternate RN note for BS readings and interventions during tx documented in this encounter Plan of Treatment Upcoming Encounters Date Type Department Care Team (Late st Contact Info) Description 12/06/2024 6:45 EST Treatment [facility] [place] [address] [place], [place] [id number] Carlota Jin MD [address] [place] [phone] 12/08/2024 6:45 EST Treatment [facility] [place] [address] [place], [place] [phone] Carlota Jin MD [address] [place] [phone] 12/11/2024 6:45 EST Treatment [facility] [place] [address] [place], [place] [phone] Carlota Jin MD [address] [place] [phone] 12/13/2024 6:45 EST Treatment [facility] [address] [place], [place] [phone] Carlota Jin MD [address] [place] [address], [place] [phone] 12/15/2024 6:45 EST Treatment [facility] [place] [address] [place], [place] [id number] Carl[facility] MD [facility], [facility] [address] [place] [phone] 12/18/2024 6:45 EST Treatment [facility] [place] [address] [place], [place] [phone] Carlota Jin MD 1 [facility], [facility] [address] [place] [phone] 12/20/2024 6:45 EST Treatment [facility] [place] [address] [place], [place] [phone] Carlota Jin MD 1 [facility], [facility] [address] [place] [phone] 12/22/2024 6:45 EST Treatment [facility] [address] [place], [place] [phone] Carlota Jin MD [facility], [facility] [address] [place] [phone] 12/25/2024 6:45 EST Treatment [facility] [address] [place], [place] [phone] Carlota Jin MD 1 [facility], [facility] [address] [place] [phone] 12/27/2024 6:45 EST Treatment [facility] [place] [address] [place], [place] [address] Carlota Jin MD 1 [facility], [facility] [address] [place] [phone] 12/29/2024 6:45 EST Treatment [facility] [place] [address] [place], [place] [phone] Carlota Jin MD 1 [facility], [facility] [address] [place] [phone] 01/01/2025 6:45 EDT Treatment [facility] [place] [address] [place], [place] [phone] Carlota Jin MD 1 [facility], [facility] [address] [place] [phone] 01/03/2025 6:45 EDT Treatment [facility] [place] [address] [place], [place] [phone] Carlota Jin MD 1 [facility], [facility] [address] [place] [phone] 01/05/2025 6:45 EDT Treatment [facility] [place] [address] [place], [place] [phone] Carlota Jin MD 1 [facility], [facility] [address] [place] [phone] 01/08/2025 6:45 EDT Treatment [facility] [place] [address] [place], [place] [phone] Carlota Jin MD 1 [facility], [facility] [address] [place] [phone] 01/10/2025 6:45 EDT Treatment [facility] [place] [address] [place], [place] [address] Carlota Jin MD [facility], [facility] [address] [place] [phone] 01/12/2025 6:45 EDT Treatment [facility] [place] [address] [place], [place] [phone] Carlota Jin MD 1 [facility], [facility] [address] [place] [phone] 01/15/2025 6:45 EDT Treatment [facility] [place] [address] [place], [place] [phone] Carlota Jin MD 1 [facility], [facility] [address] [place] [phone] 01/17/2025 6:45 EDT Treatment [facility] [place] [address] [place], [place] [phone] Carlota Jin MD [facility], [facility] [address] [place] [phone] 01/19/2025 6:45 EDT Treatment [facility] [place] [address] [place], [place] [phone] Carlota Jin MD [facility], [facility] [address] [place] [phone] 01/22/2025 6:45 EDT Treatment [facility] [place] [address] [place], [place] [phone] Carlota Jin MD 1 [facility], [facility] [address] [place] [phone] 01/24/2025 6:45 EDT Treatment [facility] [place] [address] [place], [place] [phone] Carlota Jin MD 1 [facility], [facility] [address] [place] [phone] 01/26/2025 6:45 EDT Treatment [facility] [place] [address] [place], [place] [phone] Carlota Jin MD 1 [facility], [facility] [address] [place] [phone] 01/29/2025 6:45 EDT Treatment [facility] [place] [address] [place], [place] [phone] Carlota Jin MD 1 [facility], [facility] [address] [place] [phone] 01/31/2025 6:45 EDT Treatment [facility] [place] [address] [place], [place] [phone] Carlota Jin MD 1 [facility], [facility] [address] [place] [phone] 02/02/2025 6:45 EDT Treatment [facility] [place] [address] [place], [place] [phone] Carlota Jin MD [facility], [facility] [address] [place] [phone] 02/05/2025 6:45 EDT Treatment [facility] [place] [address] [place], [place] [phone] Carlota Jin MD [facility], [facility] [address] [place] [phone] 02/07/2025 6:45 EDT Treatment [facility] [place] [address] [place], [place] [phone] Carlota Jin MD 1 [facility], [facility] [address] [place] [phone] 02/09/2025 6:45 EDT Treatment [facility] [place] [address] [place] [address] Carlota Jin MD 1 [facility], [facility] [address] [place] [phone] 02/12/2025 6:45 EDT Treatment [facility] [place] [address] [place] [address] Carlota Jin MD 1 [facility], [facility] [address] [place] [phone] 02/14/2025 6:45 EDT Treatment [facility] [place] [address] [place], [place] [phone] Carlota Jin MD 1 [facility], [facility] [address] [place] [phone] 02/16/2025 6:45 EDT Treatment [facility] [place] [address] [place], [place] [phone] Carlota Jin MD [facility], [facility] [address] [place] [phone] 02/19/2025 6:45 EDT Treatment [facility] [place] [address] [place], [place] [phone] Carlota Jin MD [facility], [facility] [address] [place] [phone] 02/21/2025 6:45 EDT Treatment [facility] [place] [address] [place], [place] [phone] Carlota Jin MD 1 [facility], [facility] [address] [place] [phone] documented as of this encounter Procedures Procedure Name Priority Date/Time Associated Diagnosis Comments POCT GLUCOSE, INTERFACED Routine 10/20/2024 9:28 EST POCT GLUCOSE, INTERFACED Routine 10/20/2024 9:08 EST HEMODIALYSIS Routine 10/20/2024 6:22 EST ESRD (end stage renal disease) ([facility]) documented in this encounter Results * (ABNORMAL) POCT GLUCOSE, INTERFACED (10/20/2024 9:28 EST) Glucose, POC 130(H) 70 - 100 mg/dL 10/20/2024 9:29 EST [facility] HN LAB POC COMMENT (GLUCOSE) Test Performed by Nursing Services 10/20/2024 9:29 EST [facility] Blood CAPILLARY BLOOD / Unknown 10/20/2024 9:28 EST 10/20/2024 9:29 EST us Carlota Jin MD POINT OF CARE TEST ORDERA BLES Final Result Performing Organization Address [facility] Co de Phone Number [facility] [address] [place] [address] * POCT GLUCOSE, INTERFACED (10/20/2024 9:08 EST) Glucose, POC 93 70 - 100 mg/dL 10/20/2024 9:09 EST [facility] HN LAB POC COMMENT (GLUCOSE) Test Performed by Nursing Services 10/20/2024 9:09 EST [facility] Blood CAPILLARY BLOOD / Unknown 10/20/2024 9:08 EST 10/20/2024 9:09 EST Carlota Jin MD POINT OF CARE TEST ORDERA BLES Final Result Performing Organization Address [facility] Co de Phone Number [facility] [address] [place] [address] documented in this encounter Visit Diagnoses Diagnosis ESRD (end stage renal disease) ([facility] Primary End stage renal disease Hypoalbuminemia Other disorders of plasma protein metabolism Secondary hyperparathyroidism ([facility]) Secondary hyperparathyroidism (of renal origin) documented in this encounter Administered Medications Inactive Administered Medications - up to 3 most recent administrations Medication Order MAR Action Action Date Dose Rate Site acetaminophen (TYLENOL) tablet 650 mg 650 mg, oral, EVERY 4 HOURS PRN, Starting on Wed10/20/24 at 1043, Until Wed10/20/24 at 1312, Pain, Routine, DialysisIndications:ESRD (end stage renal disease) ([facility]) Given 10/20/2024 10:43 EST 650 mg calcium carbonate (TUMS) tablet 500 mg (200 mg elemental calcium) 2 Tablet 2 Tablet, oral, ONCE IN DIALYSIS, 1 dose, On Wed10/20/24 at 0645, Routine, DialysisIndications:ESRD (end stage renal disease) ([facility]),Secondary hyperparathyroidism ([facility]) Given 10/20/2024 6:24 EST 2 Tablets dextrose 50 % solution 12.5 g 12.5 g, intravenous, NOW X1, 1 dose, On Wed10/20/24 at 0945, RoutineIndications:ESRD (end stage renal disease) ([facility]) Given 10/20/2024 9:10 EST 12.5 g epoetin ken (EPOGEN) 20,000 unit/2 mL injection 5,000 Units 5,000 Units, intravenous, ONCE IN DIALYSIS, 1 dose, On Wed10/20/24 at 0645, Routine, DialysisIndications:ESRD (end stage renal disease) ([facility]) Given 10/20/2024 6:40 EST 5,000 Units heparin injection 3,000 Units 3,000 Units, intravenous, ONCE IN DIALYSIS, 1 dose, On Wed10/20/24 at 0645, Routine, Dialysis, Now x1 bolus 1500 units to be given at the beginning of dialysis 500 units/hour to be given over the course of dialysis (3000 units total). Stop 1 hour prior to end of treatment. To be administered per Policy [id number].Indications:ESRD (end stage renal disease) ([facility]) Given 10/20/2024 6:40 EST 3,000 Units LiquaCel liquid protein liquid 30 mL 30 mL, oral, ONCE IN DIALYSIS, 1 dose, On Wed10/20/24 at 0645, Patient's flavor preference: either, Routine, DialysisIndications:ESRD (end stage renal disease) ([facility]),Hypoalbuminemia Given 10/20/2024 6:24 EST 30 mL documented in this encounter Orders Dialysis Count Last Ordered Date First Orde red Date HEMODIALYSIS 1 10/20/2024 documented in this encounter Care Teams Locker Room Manager Relationship Specialty Start Date End Date Ken Greer MD [address] [place] [address] PCP - General 07/07/23 Kiel Powers Arabic Translator Nephrology 05/31/24 documented as of this encounter
--- OUTSIDE RECORDS SUMMARY | 2024-12-05 11:55 | XMS_ITS | Encounter Summary ---
Author Organization [facility] Address [address] [place] [address] Care Team Providers Care Mine Engineer Name Role Phone Ken Greer MD Primary Care Provider [phone] Kiel Powers Unavailable Unavailable Reason for Visit * Episode Based Medications (Routine) - New Request Specialty Diagnoses / Procedures Referred By Nader gardiner Referred To Contact Diagnoses ESRD (end stage renal disease) ([facility]) Carlota Jin MD [address] [place] [address], [facility] [address] [place] [address] Phone: tel: fax: [facility] [place] [address] [place] [address] Phone: tel: fax: Referral ID Status Reason Start Date Expiration Date V isits Requested Visits Authorized [id number] New Request 03/17/2024 1 1 Encounter Details Date Type Department Care Team (Latest Contact Info) Description 10/16/2024 6:45 EST Treatment [facility] [address] [place] [phone] Carlota Jin MD [address] [place] [address], [facility] [address] [place] [address] ESRD (end stage renal disease) ([facility]) (Primary Dx); Hypoalbuminemia; Secondary [facility] Social History Tobacco Use Types Packs/Day Years Used Date Smoking Tobacco: Every Day Cigarettes 1 26.1 Started: 1998 Smokeless Tobacco: Never Alcohol Use Standard Drinks/Week Comments Yes 0 (1 standard drink = 0.6 oz pur e alcohol) Socially [facility] Utilities Answer Date Recorded In the past [...] time in the past 12 m [facility], were you homeless or living in a custodial (including now)? No 05/30/2024 Interpersonal Safety Answer [...] the past 12 months has th e [employer], gas, oil, or water [email or web address] threatened to shut off services in your [...] - Temperature - - Respiratory Rate 16 10/16/2024 0624 EST Oxygen Saturation - - Inhaled Oxygen Concentration - - Weight 80.5 kg (177 lb 7.5 oz) 10/16/[address] Height - - Body Mass [...] Progress Notes * Marcela Cox RN - 10/16/2024 0645 EST Mid tx BS reading- 91, D50 solution given per Dr. Jin for swallowing issues 15 min recheck- 108, no intervention needed 1 hr recheck = 98, D50 solution given per Dr. Smith for swallowing issues Recheck prior to needle removal- 133, no intervention requires Recheck prior to d/c from unit- 143, no intervention needed documented in this encounter Miscellaneous Notes * Flowsheet Note - Marcela Cox RN - 10/16/2024 1248 EST 10/16/24 1025 Post-Hemodialysis Assessment Total Blood Processed (L) 79.17 Liters On Line Clearance: spKt/V 1.35 spKt/V Dialyzer Clearance Lightly streaked Treatment UFR (ml:kg:hr) 14.87 ml:kg:hr Final Critline Profile (%/hr) -2.99 Final Profile Profile A Critline refill Not done (Unable to obtain due to ending early) Fluid Removed (L) 3.9 L Post-Dialysis Scale Weight 93.7 kg (206 lb 9.1 oz) Wheelchair Weight 17.2 kg (37 lb 14.7 oz) Prosthesis Weight 0 kg (0 lb) Post-Treatment Weight (kg) 76.5 Treatment Weight Change (kg) 4 kg Day Target Weight (kg) 76.7 Post Sitting/Lying BP 149/86 Post Sitting/Lying pulse 85 Temp 36.6 ??C (97.9 ??F) Temp src Temporal Minutes Short -211 Post access assessment Bruit present: Yes Thrill Present AVF/AFG Hemostasis achieved Yes Note Pt held with blue clamps for 15mins due to heavy artieral bleeding Orientation Alert and Oriented x3 Yes (sleepy post tx) Time Yes Place Yes Person Yes Cooperative Yes Disoriented No Discharge Ambulation Methods Departs via w/c;With patient transport Wrap up items Patient Response to Treatment Removed 3.9L out of original 4.3L UF goal, rinseback performed 30 minearly as pt become restless and nauseous. This improved post rinseback. Comments see alternate RN note for BS readings and interventions required during tx documented in this encounter Plan of Treatment Upcoming Encounters Date Type Department Care Team (Late st Contact Info) Description 12/06/2024 6:45 EST Treatment [facility] [address] [place], [place] [phone] Carlota Jin MD 1 [facility], [facility] [address] [place] [phone] 12/08/2024 6:45 EST Treatment [facility] [address] [place], [place] [phone] Carlota Jin MD 1 [facility], [facility] [address] [place] [address] 12/11/2024 6:45 EST Treatment [facility] [address] [place], [place] [phone] Carlota Jin MD 1 [facility], [facility] [address] [place] [phone] 12/13/2024 6:45 EST Treatment [facility] [place] [address] [place], [place] [phone] Carlota Jin MD 1 [facility] [address] [place] [phone] 12/15/2024 6:45 EST Treatment [facility] [address] [place] [address] Carlota Jin MD 1 [facility], [facility] [address] [place] [phone] 12/18/2024 6:45 EST Treatment [facility] [address] [place] [address] Carlota Jin MD 1 [facility], [facility] [address] [place] [phone] 12/20/2024 6:45 EST Treatment [facility] [place] [address] [place] [address] Carlota Jin MD 1 [facility], [facility] [address] [place] [phone] 12/22/2024 6:45 EST Treatment [facility] [place] [address] [place], [place] [phone] Carlota Jin MD 1 [facility] [address] [place] [phone] 12/25/2024 6:45 EST Treatment [facility] [address] [place], [place] [phone] Carlota Jin MD 1 [facility], [facility] [address] [place] [phone] 12/27/2024 6:45 EST Treatment [facility] [place] [address] [place], [place] [address] [phone] Carlota Jin MD 1 [facility], [address] [phone] 12/29/2024 6:45 EST Treatment [facility] [address] [place], [place] [phone] Carlota Jin MD 1 [facility], [address] [phone] 01/01/2025 6:45 EDT Treatment [facility] [address] [place], [place] [phone] Carlota Jin MD 1 [facility], [address] [phone] 01/03/2025 6:45 EDT Treatment [facility] [address] [place], [place] [phone] Carlota Jin MD 1 [facility], [address] [phone] 01/05/2025 6:45 EDT Treatment [facility] [address] [place], [place] [phone] Carlota Jin MD 1 [facility], [facility] [address] [place] [phone] 01/08/2025 6:45 EDT Treatment [facility] [address] [place], [place] [phone] Carlota Jin MD 1 [facility], [facility] [address] [place] [phone] 01/10/2025 6:45 EDT Treatment [facility] [address] [place], [place] [phone] Carlota Jin MD 1 [facility], [facility] [address] [place] [phone] 01/12/2025 6:45 EDT Treatment [facility] [address] [place] [address] Carlota Jin MD 1 [facility], [facility] [address] [place] [phone] 01/15/2025 6:45 EDT Treatment [facility] [address] [place], [place] [phone] Carlota Jin MD 1 [facility], [facility] [address] [place] [phone] 01/17/2025 6:45 EDT Treatment [facility] [address] [place], [place] [phone] Carlota Jin MD 1 [facility], [facility] [address] [place] [phone] 01/19/2025 6:45 EDT Treatment [facility] [address] [place], [place] [address] Carlota Jin MD 1 [facility], [facility] [address] [place] [phone] 01/22/2025 6:45 EDT Treatment [facility] [address] [place], [place] [phone] Carlota Jin MD 1 [facility], [facility] [address] [place] [phone] 01/24/2025 6:45 EDT Treatment [facility] [address] [place], [place] [phone] Carlota Jin MD 1 [facility], [facility] [address] [place] [phone] 01/26/2025 6:45 EDT Treatment [facility] [address] [place], [place] [phone] Carlota Jin MD 1 [facility], [facility] [address] [place] [phone] 01/29/2025 6:45 EDT Treatment [facility] [address] [place], [place] [phone] Carlota Jin MD 1 [facility], [facility] [address] [place] [phone] 01/31/2025 6:45 EDT Treatment [facility] [place] [address] [place], [place] [phone] Carlota Jin MD 1 [facility], [facility] [address] [place] [phone] 02/02/2025 6:45 EDT Treatment [facility] [address] [place], [place] [address] Carlota Jin MD 1 [facility], [facility] [address] [place] [phone] 02/05/2025 6:45 EDT Treatment [facility] [address] [place], [place] [phone] Carlota Jin MD 1 [facility], [facility] [address] [place] [phone] 02/07/2025 6:45 EDT Treatment [facility] [address] [place], [place] [phone] Carlota Jin MD 1 [facility], [facility] [address] [place] [phone] 02/09/2025 6:45 EDT Treatment [facility] [address] [place] [address] Carlota Jin MD 1 [facility], [facility] [address] [place] [phone] 02/12/2025 6:45 EDT Treatment [facility] [address] [place], [place] [phone] Carlota Jin MD 1 [facility], [facility] [address] [place] [phone] 02/14/2025 6:45 EDT Treatment [facility] [address] [place], [place] [phone] Carlota Jin MD 1 [facility], [facility] [address] [place] [phone] 02/16/2025 6:45 EDT Treatment [facility] [address] [place], [place] [phone] Carlota Jin MD 1 [facility], [facility] [address] [place] [phone] 02/19/2025 6:45 EDT Treatment [facility] [place] [address] [place], [place] [phone] Carlota Jin MD 1 [facility], [facility] [address] [place] [phone] 02/21/2025 6:45 EDT Treatment [facility] [address] [place], [place] [phone] Carlota Jin MD 1 [facility], [facility] [address] [place] [phone] documented as of this encounter Procedures Procedure Name Priority Date/Time Associated Diagnosis Comments POCT GLUCOSE, INTERFACED Routine 10/16/2024 10:36 EST POCT GLUCOSE, INTERFACED Routine 10/16/2024 10:25 EST HEMODIALYSIS Routine 10/16/2024 6:24 EST ESRD (end stage renal disease) ([facility]) documented in this encounter Results * (ABNORMAL) POCT GLUCOSE, INTERFACED (10/16/2024 10:36 EST) Glucose, POC 133(H) 70 - 100 mg/dL 10/16/2024 13:17 EST [facility] HN LAB POC COMMENT (GLUCOSE) Test Performed by Nursing Services 10/16/2024 13:17 [facility] Blood CAPILLARY BLOOD / Unknown 10/16/2024 10:36 EST 10/16/2024 13:17 EST Carlota Jin MD POINT OF CARE TEST ORDERA BLES Final Result Performing Organization Address City/[facility]/ZIP Co de Phone Number [facility] [address] [place] [address] * POCT GLUCOSE, INTERFACED (10/16/2024 10:25 EST) Glucose, POC 98 70 - 100 mg/dL 10/16/2024 13:17 [facility] HN LAB POC COMMENT (GLUCOSE) Test Performed by Nursing Services 10/16/2024 13:17 EST [facility] Blood CAPILLARY BLOOD / Unknown 10/16/2024 10:25 EST 10/16/2024 13:17 EST Carlota Jin MD POINT OF CARE TEST ORDERA BLES Final Result Performing Organization Address [facility] Co de Phone Number [facility] [address] [place], [place] [address] documented in this encounter Visit Diagnoses Diagnosis ESRD (end stage renal disease) ([facility] Primary End stage renal disease Hypoalbuminemia Other disorders of plasma protein metabolism Secondary hyperparathyroidism ([facility]) Secondary hyperparathyroidism (of renal origin) documented in this encounter Administered Medications Inactive Administered Medications - up to 3 most recent administrations Medication Order MAR Action Action Date Dose Rate Site calcium carbonate (TUMS) tablet 500 mg (200 mg elemental calcium) 2 Tablet 2 Tablet, oral, ONCE IN DIALYSIS, 1 dose, On 10/16/24 at 0645, Routine, DialysisIndications:ESRD (end stage renal disease) ([facility]),Secondary hyperparathyroidism ([facility]) Given 10/16/2024 6:37 EST 2 Tablets dextrose 50 % solution 12.5 g 12.5 g, intravenous, NOW X1, 1 dose, On Wed10/16/24 at 0945, RoutineIndications:ESRD (end stage renal disease) ([facility]) Given 10/16/2024 10:22 EST 12.5 g Given 10/16/2024 9:18 EST 12.5 g epoetin ken (EPOGEN) 20,000 unit/2 mL injection 5,000 Units 5,000 Units, intravenous, ONCE IN DIALYSIS, 1 dose, On Wed10/16/24 at 0645, Routine, DialysisIndications:ESRD (end stage renal disease) ([facility]) Given 10/16/2024 7:00 EST 5,000 Units heparin injection 3,000 Units 3,000 Units, intravenous, ONCE IN DIALYSIS, 1 dose, On Wed10/16/24 at 0645, Routine, Dialysis, Now x1 bolus 1500 units to be given at the beginning of dialysis 500 units/hour to be given over the course of dialysis (3000 units total). Stop 1 hour prior to end of treatment. To be administered per Policy [id number].Indications:ESRD (end stage renal disease) ([facility]) Given 10/16/2024 7:00 EST 3,000 Units LiquaCel liquid protein liquid 30 mL 30 mL, oral, ONCE IN DIALYSIS, 1 dose, On Wed10/16/24 at 0645, Patient's flavor preference: either, Routine, DialysisIndications:ESRD (end stage renal disease) ([facility]),Hypoalbuminemia Given 10/16/2024 6:37 EST 30 mL documented in this encounter Orders Dialysis Count Last Ordered Date First Orde red Date HEMODIALYSIS 1 10/16/2024 documented in this encounter Care Teams Mine Engineer Relationship Specialty Start Date End Date Ken Greer MD [address] [place] [address] PCP - General 07/07/23 Kiel Powers Electrophysiology Technician Nephrology 05/31/24 documented as of this encounter
--- OUTSIDE RECORDS SUMMARY | 2024-12-05 11:55 | XMS_ITS | Encounter Summary ---
Author Organization [facility] Address [address] [place] [address] Care Team Providers Care Director Of Strategic Marketing Name Role Phone Ken Greer MD Primary Care Provider [phone] Kiel Powers Unavailable Unavailable Encounter Details Date Type Department Care Team (Late st Contact Info) Description 10/04/2024 Documentation Visit [facility] [address] [place], [place] [id number] Marcela Cox, RN Social History Tobacco Use Types Packs/Day Years Used Date Smoking Tobacco: Every Day Cigarettes 1 26.1 Started: 1998 Smokeless Tobacco: Never Alcohol Use Standard Drinks/Week Comments Yes 0 (1 standard drink = 0.6 oz pur e alcohol) Socially [facility] Utilities Answer Date Recorded In [...] any time in the past 12 m [facility], were you homeless or living in a chcf (including now)? No 05/30/2024 Interpersonal Safety Answer Date Record ed How often does anyone, martin lyons family, hit, punch or physically hurt you? 05/30/2024 How often does anyone, martin lyons family, insult, scream, curse or threaten to hurt you? 05/30/2024 Living Situation Answer Date Recorded What is your living situation today? I [facility] a [facility] place to [facility] 05/30/2024 Think about [...] Progress Notes * Marcela Cox RN - 10/04/2024 0641 EST 10/04/24 6:42 [facility] DIALYS[facility] MEDICATION RECONCILIATION Medication review of home medications (prescriptions, dqpo-qcd-swempyb, herbals, vitamin/mineral/dietary (nutritional) supplements, medical marijuana, and [...] 100 unit/mL (3 mL) injection pen insulin lispro (HUMALOG) 100 unit/mL vial insulin pen needles 32G x 5/32 pantoprazole (PROTONIX) 40 mg tablet polyethylene glycol 3350 (MIRALAX) 17 gram packet pregabalin (LYRICA) 100 mg capsule SUSY-LOCO 0.8 mg tablet senna-docusate (SENNA PLUS) 8.6-50 mg per tablet sevelamer carbonate (RENVELA) 800 mg tablet sodium polystyrene (KAYEXALATE) powder tiZANidine (ZANAFLEX) 4 mg tablet torsemide (DEMADEX) 100 mg tablet No current facility-administered medications for this visit. Facility-Administered Medications Ordered in Other Visits Medication Route Frequency heparin injection 3,000 Units intravenous ONCE IN DIALYSIS Marcela Cox RN documented in this encounter Plan of Treatment Upcoming Encounters Date Type Department Care Team (Late st Contact Info) Description 12/06/2024 6:45 EST Treatment [facility] [address] [place], [place] [id number] Carlota Jin MD [address] [place] [address] 2 [place] [phone] 12/08/2024 6:45 EST Treatment [facility] [address] [place], [place] [phone] Carlota Jin MD [address] [place] [address], [facility] 2 [place] [phone] 12/11/2024 6:45 EST Treatment [facility] [address] [place], [place] [id number] Carlota Jin MD 1 [facility], [facility] 2 [place] [phone] 12/13/2024 6:45 EST Treatment [facility] [place] [address] [place] [address] Carlota Jin MD 1 [facility], [facility] 2 [place] [phone] 12/15/2024 6:45 EST Treatment [facility] [address] [place], [place] [address] [phone] Carlota Jin MD 1 [facility], [facility] 2 [place] [phone] 12/18/2024 6:45 EST Treatment [facility] [address] [place] [address] Carlota Jin MD 1 [facility], [facility] 2 [place] [phone] 12/20/2024 6:45 EST Treatment [facility] [address] [place], [place] [id number] Carlota Jin MD 1 [facility], [facility] 2 [place] [phone] 12/22/2024 6:45 EST Treatment [facility] [address] [place], [place] [address] Carlota Jin MD 1 [facility], [address] [phone] 12/25/2024 6:45 EST Treatment [facility] [address] [place] [address] Carlota Jin MD 1 [facility], [address] [phone] 12/27/2024 6:45 EST Treatment [facility] [address] [place], [place] [id number] Carlota Jin MD 1 [facility], [address] [phone] 12/29/2024 6:45 EST Treatment [facility] [address] [place] [address] Carlota Jin MD 1 [facility], [address] [phone] 01/01/2025 6:45 EDT Treatment [facility] [address] [place], [place] [phone] Carlota Jin MD [address] [phone] 01/03/2025 6:45 EDT Treatment [facility] [address] [place], [place] [id number] Carlota Jin MD 1 [facility], [address] [phone] 01/05/2025 6:45 EDT Treatment [facility] [address] [place], [place] [id number] Carlota Jin MD 1 [facility], [facility] 2 [place] [phone] 01/08/2025 6:45 EDT Treatment [facility] [address] [place], [place] [phone] Carlota Jin MD 1 [facility], [facility] 2 [place] [phone] 01/10/2025 6:45 EDT Treatment [facility] [place] [address] [place], [place] [id number] Carlota Jin MD 1 [facility], [facility] 2 [place] [phone] 01/12/2025 6:45 EDT Treatment [facility] [address] [place], [place] [id number] Carlota Jin MD 1 [facility], [facility] 2 [place] [phone] 01/15/2025 6:45 EDT [facility] [address] [place], [place] [phone] Carlota Jin MD 1 [facility], [facility] 2 [place] [phone] 01/17/2025 6:45 EDT Treatment [facility] [place] [address] [place], [place] [address] Carlota Jin MD 1 [facility], [facility] 2 [place] [phone] 01/19/2025 6:45 EDT Treatment [facility] [address] [place], [place] [id number] Carlota Jin MD 1 [facility], [facility] 2 [place] [phone] 01/22/2025 6:45 EDT Treatment [facility] [address] [place], [place] [id number] Carlota Jin MD 1 [facility], [address] [phone] 01/24/2025 6:45 EDT Treatment [facility] [place] [address] [place], [place] [phone] Carlota Jin MD 1 [facility], [facility] 2 [place] [phone] 01/26/2025 6:45 EDT Treatment [facility] [address] [place], [place] [phone] Carlota Jin MD 1 [facility], [facility] 2 [place] [phone] 01/29/2025 6:45 EDT Treatment [facility] [address] [place], [place] [phone] Carlota Jin MD 1 [facility], [facility] 2 [place] [phone] 01/31/2025 6:45 EDT Treatment [facility] [address] [place], [place] [address] Carlota Jin MD 1 [facility], [facility] 2 [place] [phone] 02/02/2025 6:45 EDT Treatment [facility] [address] [place], [place] [id number] Carlota Jin MD 1 [facility], [facility] 2 [place] [phone] 02/05/2025 6:45 EDT Treatment [facility] [address] [place], [place] [address] Carlota Jin MD 1 [facility], [facility] 2 [place] [phone] 02/07/2025 6:45 EDT Treatment [facility] [place] [address] [place] [address] Carlota Jin MD 1 [facility], [facility] 2 [place] [phone] 02/09/2025 6:45 EDT Treatment [facility] [address] [place], [place] [address] Carlota Jin MD 1 [facility], [facility] 2 [place] [phone] 02/12/2025 6:45 EDT Treatment [facility] [address] [place], [place] [id number] Carlota Jin MD [address] [place] [phone] 02/14/2025 6:45 EDT Treatment [facility] [address] [place], [place] [phone] Carlota Jin MD [address] [place] [phone] 02/16/2025 6:45 EDT Treatment [facility] [address] [place], [place] [id number] Carlota Jin MD [address] [place] [phone] 02/19/2025 6:45 EDT Treatment [facility] [address] [place], [place] [id number] Carlota Jin MD [address] [place] [phone] 02/21/2025 6:45 EDT Treatment [facility] [address] [place], [place] [phone] Carlota Jin MD [address] [place] [phone] documented as of this encounter Visit Diagnoses Not on filedocumented in this encounter Historical Medications * This list may reflect changes made after this encounter. SUSY-LOCO 0.8 mg tablet Take 1 Tablet by mouth daily. 09/25/2024 added in this encounter Care Teams Director Of Strategic Marketing Relationship Specialty Start Date End Date Ken Greer MD [address] [place] [address] PCP - General 07/07/23 Kiel Pwoers [facility] 05/31/24 documented as of this encounter
--- OUTSIDE RECORDS SUMMARY | 2024-12-05 11:55 | XMS_ITS | Encounter Summary ---
Author Organization [facility] Address [address] [place] [address] Care Team Providers Care Relations Manager Name Role Phone Ken Greer MD Primary Care Provider [phone] Kiel Powers Unavailable Unavailable Encounter Details Date Type Department Care Team (Late st Contact Info) Description 10/04/2024 Orders Only [facility] [address] [place], [place] [phone] Yoanna Degroot, RN Social History Tobacco Use Types Packs/Day Years Used Date Smoking Tobacco: Every Day Cigarettes 1 26.1 Started: 1998 Smokeless Tobacco: Never Alcohol Use Standard Drinks/Week Comments Yes 0 (1 standard drink = 0.6 oz pur e alcohol) Socially [facility] Utilities Answer Date Recorded In the [...] in a [facility] (including now)? No 05/30/2024 Interpersonal Safety Answer Date Record ed How often does anyone, martin lyons family, hit, punch or physically hurt you? 05/30/2024 How often does anyone, martin lyons family, insult, scream, curse or threaten to hurt you? 05/30/2024 Living Situation Answer Date Recorded What is your living situation today? I have a [facility] place to live 05/30/2024 Think [...] Answer Entry Date Author No 05/30/2024 18:25 EDT Daria Fonseca RN documented in this encounter Plan of Treatment Upcoming Encounters Date Type Department Care Team (Late st Contact Info) Description 12/06/2024 6:45 EST Treatment [facility] [place] [address] [place], [place] [phone] Carlota Jin MD 1 [facility], Level [address] [place] [phone] 12/08/2024 6:45 EST Treatment [facility] [place] [address] [place], [place] [phone] Carlota Jin MD 1 [facility], Level [address] [place] [phone] 12/11/2024 6:45 EST Treatment [facility] [place] [address] [place], [place] [address] Carl[facility] Jin MD 1 [facility] 2 [place] [phone] 12/13/2024 6:45 EST Treatment [facility] [place] [address] [place], [place] [phone] Carlota Jin MD 1 [facility], [facility] 2 [place] [phone] 12/15/2024 6:45 EST Treatment [facility] [place] [address] [place] [address] Carlota Jin MD 1 [facility], [facility] 2 [place] [phone] 12/18/2024 6:45 EST Treatment [facility] [address] [place], [place] [id number] Carlota Jin MD 1 [facility], [facility] 2 [place] [phone] 12/20/2024 6:45 EST Treatment [facility] [place] [address] [place], [place] [phone] Carlota Jin MD 1 [facility], [facility] 2 [place] [phone] 12/22/2024 6:45 EST Treatment [facility] [place] [address] [place], [place] [phone] Carlota Jin MD 1 [facility], [facility] 2 [place] [phone] 12/25/2024 6:45 EST Treatment [facility] [place] [address] [place], [place] [phone] Carlota Jin MD 1 [facility], [facility] 2 [place] [phone] 12/27/2024 6:45 EST Treatment [facility] [place] [address] [place], [place] [id number] Carlota Jin MD 1 [facility], [facility] 2 [place] [phone] 12/29/2024 6:45 EST Treatment [facility] [place] [address] [place], [place] [id number] Carlota Jin MD 1 [facility], [facility] 2 [place] [phone] 01/01/2025 6:45 EDT Treatment [facility] [place] [address] [place], [place] [id number] Carlota Jin MD 1 [facility], [facility] 2 [place] [phone] 01/03/2025 6:45 EDT Treatment [facility] [place] [address] [place], [place] [id number] Carlota Jin MD 1 [facility], [facility] 2 [place] [phone] 01/05/2025 6:45 EDT Treatment [facility] [place] [address] [place], [place] [id number] Carlota Jin MD 1 [facility], [facility] 2 [place] [phone] 01/08/2025 6:45 EDT Treatment [facility] [place] [address] [place], [place] [id number] Carlota Jin MD 1 [facility], [facility] 2 [place] [phone] 01/10/2025 6:45 EDT Treatment [facility] [place] [address] [place], [place] [id number] Carlota Jin MD 1 [facility], [facility] 2 [place] [phone] 01/12/2025 6:45 EDT Treatment [facility] [address] [place], [place] [phone] Carlota Jin MD 1 [facility], [facility] 2 [place] [phone] 01/15/2025 6:45 EDT Treatment [facility] [place] [address] [place], [place] [id number] Carlota Jin MD 1 [facility], [facility] 2 [place] [phone] 01/17/2025 6:45 EDT Treatment [facility] [place] [address] [place], [place] [id number] Carlota Jin MD 1 [facility], [facility] 2 [place] [phone] 01/19/2025 6:45 EDT Treatment [facility] [place] [address] [place], [place] [id number] Carlota Jin MD 1 [facility], [facility] 2 [place] [phone] 01/22/2025 6:45 EDT Treatment [facility] [place] [address] [place], [place] [id number] Carlota Jin MD 1 [facility], [facility] 2 [place] [phone] 01/24/2025 6:45 EDT Treatment [facility] [place] [address] [place], [place] [address] Carlota Jin MD 1 [facility], [facility] 2 [place] [phone] 01/26/2025 6:45 EDT Treatment [facility] [place] [address] [place], [place] [id number] Carlota Jin MD 1 [facility], [facility] 2 [place] [phone] 01/29/2025 6:45 EDT Treatment [facility] [place] [address] [place], [place] [id number] Carlota Jin MD 1 [facility], [facility] 2 [place] [phone] 01/31/2025 6:45 EDT Treatment [facility] [place] [address] [place] [address] Carlota Jin MD 1 [facility], [address] [phone] 02/02/2025 6:45 EDT Treatment [facility] [place] [address] [place], [place] [id number] Carlota Jin MD 1 [facility], [address] [phone] 02/05/2025 6:45 EDT Treatment [facility] [place] [address] [place], [place] [id number] Carlota Jin MD 1 [facility], [address] [phone] 02/07/2025 6:45 EDT Treatment [facility] [place] [address] [place], [place] [id number] Carlota Jin MD 1 [facility], [facility] 2 [place] [phone] 02/09/2025 6:45 EDT Treatment [facility] [place] [address] [place], [place] [id number] Carlota Jin MD 1 [facility], [facility] 2 [place] [phone] 02/12/2025 6:45 EDT Treatment [facility] [place] [address] [place], [place] [id number] Carlota Jin MD 1 [facility], [address] [phone] 02/14/2025 6:45 EDT Treatment [facility] [place] [address] [place], [place] [id number] Carlota Jin MD [address] [place] [phone] 02/16/2025 6:45 EDT Treatment [facility] [place] [address] [place], [place] [address] [phone] Carlota Jin MD [address] [place] [phone] 02/19/2025 6:45 EDT Treatment [facility] [place] [address] [place], [place] [id number] Carlota Jin MD [address] [place] [phone] 02/21/2025 6:45 EDT Treatment [facility] [place] [address] [place], [place] [phone] Carlota Jin MD [address] [phone] documented as of this encounter Visit Diagnoses Not on filedocumented in this encounter Care Teams Relations Manager Relationship Specialty Start Date End Date Ken Greer MD [address] [place] [address] PCP - General 07/07/23 Kiel Powers [employer] [facility] 05/31/24 documented as of this encounter
--- OUTSIDE RECORDS SUMMARY | 2024-12-05 11:55 | XMS_ITS | Encounter Summary ---
Author Organization [facility] Address [address] [place] [address] Care Team Providers Care Refinery Operator Alkylation Name Role Phone eKn Greer MD Primary Care Provider Kiel Powers Unavailable Unavailable Reason for Visit * Episode Based Medications (Routine) - New Request Specialty Diagnoses / Procedures Referred By Nader gardiner Referred To Contact Diagnoses ESRD (end stage renal disease) ([facility] Carlota Jin MD [address] [facility], Level 2 [place] [address] Phone: tel: fax: [facility] [place] [address] [place] [address] Phone: tel: fax: Referral ID Status Reason Start Date Expiration Date V isits Requested Visits Authorized [id number] New Request 03/17/2024 1 1 Encounter Details Date Type Department Care Team (Latest Contact Info) Description 10/26/2024 6:45 EST Treatment [facility] [address] [place] [phone] ESRD (end stage renal disease) ([facility]) (Primary Dx); Hypoalbuminemia; Secondary hyperparathyroidism ([facility]) Social History Tobacco Use Types Packs/Day Years Used Date Smoking Tobacco: Every Day Cigarettes 1 26.1 Started: 1998 Smokeless Tobacco: Never Alcohol Use Standard Drinks/Week Comments Yes 0 (1 standard drink = 0.6 oz pur e alcohol) Socially [facility] Utilities Answer Date Recorded In the [...] any time in the past 12 m [facility], were you homeless or [...] the past 12 months has th e [employer], gas, oil, or water [employer] threatened to shut off services in your [...] - Temperature - - Respiratory Rate 16 10/26/2024 0619 EST Oxygen Saturation - - Inhaled Oxygen Concentration - - Weight 80.5 kg (177 lb 7.5 oz) 10/26/[address] Height - - Body [...] Daria Fonseca RN documented in this encounter Progress Notes * Marcela Cox RN - 10/26/2024 0645 EST Pre tx BS- 95, 25 ml Dextrose given for swallowing issues 15 min recheck- 116 1 hr recheck- 88, 25 ml Dextrose given for swallowing issues 15 min recheck- 97 1 hr recheck - 93, 25 ml Dextrose given for swallowing issues 15 min recheck-97 1 hr recheck- 86, 25 ml Dextrose given for swallowing issues 15 min recheck- 99 , aware of BS readings and interventions upon d/c from unit documented in this encounter Miscellaneous Notes * Flowsheet Note - Marcela Cox RN - 10/26/2024 1344 EST 10/26/24 1034 Post-Hemodialysis Assessment Total Blood Processed (L) 89.82 Liters On Line Clearance: spKt/V 1.56 spKt/V Dialyzer Clearance Lightly streaked Treatment UFR (ml:kg:hr) 12.78 ml:kg:hr Fluid Removed (L) 4.19 L Post-Dialysis Scale Weight 93.8 kg (206 lb 12.7 oz) Wheelchair Weight 17.2 kg (37 lb 14.7 oz) Prosthesis Weight 0 kg (0 lb) Post-Treatment Weight (kg) 76.6 Treatment Weight Change (kg) 3.9 kg Day Target Weight (kg) 76.8 Post Sitting/Lying BP 176/78 Post Sitting/Lying pulse 63 Temp 35.9 ??C (96.6 ??F) Temp src Temporal Minutes Short -239 Post access assessment AVF/AFG Hemostasis achieved Yes Note 10 min hold Orientation Alert and Oriented x3 Yes Time Yes Place Yes Person Yes Cooperative Yes Disoriented No Discharge Ambulation Methods Departs via w/c Wrap up items Patient Response to Treatment Tolerated tx well. Removed 4.2L UF goal without difficulty. Comments see alternate RN note for BS readings and interventions documented in this encounter Plan of Treatment Upcoming Encounters Date Type Department Care Team (Late st Contact Info) Description 12/06/2024 6:45 EST Treatment [facility] [place] [address] [place], [place] [phone] Carlota Jin MD [address] [phone] 12/08/2024 6:45 EST Treatment [facility] [place] [address] [place], [place] [phone] Carlota Jin MD [address] [place] [phone] 12/11/2024 6:45 EST Treatment [facility] [place] [address] [place], [place] [phone] Carlota Jin MD [address] [place] [address] 2 [place] [phone] 12/13/2024 6:45 EST Treatment [facility] [address] [place] [phone] Carlota Jin MD [address] [place] [phone] 12/15/2024 6:45 EST Treatment [facility] [place] [address] [place], [place] [id number] Carlota Jin MD 1 [facility], [facility] 2 [place] [phone] 12/18/2024 6:45 EST Treatment [facility] [place] [address] [place], [place] [phone] Carlota Jin MD 1 [facility], [facility] 2 [place] [phone] 12/20/2024 6:45 EST Treatment [facility] [place] [address] [place], [place] [phone] Carlota Jin MD 1 [facility], [facility] 2 [place] [phone] 12/22/2024 6:45 EST Treatment [facility] [address] [place], [place] [phone] Carlota Jin MD 1 [facility], [address] [phone] 12/25/2024 6:45 EST Treatment [facility] [address] [place], [place] [phone] Carlota Jin MD [address] [facility], [facility] 2 [place] [phone] 12/27/2024 6:45 EST Treatment [facility] [address] [place], [place] [phone] Carlota Jin MD 1 [facility], [facility] 2 [place] [phone] 12/29/2024 6:45 EST Treatment [facility] [place] [address] [place], [place] [phone] Carlota Jin MD 1 [facility], [facility] 2 [place] [phone] 01/01/2025 6:45 EDT Treatment [facility] [place] [address] [place], [place] [phone] Carlota Jin MD [address] [facility], [facility] 2 [place] [phone] 01/03/2025 6:45 EDT Treatment [facility] [place] [address] [place], [place] [phone] Carlota Jin MD [address] [facility], [facility] 2 [place] [phone] 01/05/2025 6:45 EDT Treatment [facility] [place] [address] [place], [place] [phone] Carlota Jin MD 1 [facility], [facility] 2 [place] [phone] 01/08/2025 6:45 EDT Treatment [facility] [address] [place], [place] [phone] Carlota Jin MD [address] [facility], [facility] 2 [place] [phone] 01/10/2025 6:45 EDT Treatment [facility] [place] [address] [place], [place] [phone] Carlota Jin MD [address] [facility], [facility] 2 [place] [phone] 01/12/2025 6:45 EDT Treatment [facility] [place] [address] [place], [place] [phone] Carlota Jin MD [address] [facility], [address] [phone] 01/15/2025 6:45 EDT Treatment [facility] [place] [address] [place], [place] [phone] Carlota Jin MD 1 [facility], [address] [phone] 01/17/2025 6:45 EDT Treatment [facility] [place] [address] [place], [place] [phone] Carlota Jin MD 1 [facility], [address] [phone] 01/19/2025 6:45 EDT Treatment [facility] [place] [address] [place], [place] [id number] Carlota Jin MD [address] [facility], [facility] 2 [place] [phone] 01/22/2025 6:45 EDT Treatment [facility] [place] [address] [place], [place] [phone] Carlota Jin MD 1 [facility], Level [address] [place] [phone] 01/24/2025 6:45 EDT Treatment [facility] [place] [address] [place], [place] [id number] Carlota Jin MD 1 [facility], [facility] 2 [place] [phone] 01/26/2025 6:45 EDT Treatment [facility] [place] [address] [place], [place] [phone] Carlota Jin MD 1 [facility], [facility] 2 [place] [phone] 01/29/2025 6:45 EDT Treatment [facility] [place] [address] [place], [place] [id number] Carlota Jin MD 1 [facility], [facility] 2 [place] [phone] 01/31/2025 6:45 EDT Treatment [facility] [place] [address] [place] [phone] Carlota Jin MD 1 [facility], [facility] 2 [place] [phone] 02/02/2025 6:45 EDT Treatment [facility] [place] [address] [place], [place] [id number] Carlota Jin MD 1 [facility], [facility] 2 [place] [phone] 02/05/2025 6:45 EDT Treatment [facility] [place] [address] [place], [place] [phone] Carlota Jin MD 1 [facility], [facility] 2 [place] [phone] 02/07/2025 6:45 EDT Treatment [facility] [place] [address] [place], [place] [phone] Carlota Jin MD 1 [facility], [facility] 2 [place] [phone] 02/09/2025 6:45 EDT Treatment [facility] [place] [address] [place], [place] [phone] Carltoa Jin MD [address] [place] [address], [facility] 2 [place] [phone] 02/12/2025 6:45 EDT Treatment [facility] [place] [address] [place], [place] [phone] Carlota Jin MD [address] [place] [address], [facility] 2 [place] [phone] 02/14/2025 6:45 EDT Treatment [facility] [place] [address] [place], [place] [phone] Carlota Jin MD 1 [facility], [facility] 2 [place] [phone] 02/16/2025 6:45 EDT Treatment [facility] [place] [address] [place], [place] [phone] Carlota Jin MD 1 [facility], Level [address] [place] [phone] 02/19/2025 6:45 EDT Treatment [facility] [place] [address] [place], [place] [phone] Carlota Jin MD 1 [facility], Level [address] [place] [phone] 02/21/2025 6:45 EDT Treatment [facility] [place] [address] [place] [phone] Carlota Jin MD 1 [facility], [facility] 2 [place] [phone] documented as of this encounter Procedures Procedure Name Priority Date/Time Associated Diagnosis Comments POCT GLUCOSE, INTERFACED Routine 10/26/2024 7:58 EST POCT GLUCOSE, INTERFACED Routine 10/26/2024 7:08 EST POCT GLUCOSE, INTERFACED Routine 10/26/2024 6:37 EST COMPLETE BLOOD COUNT Routine 10/26/2024 6:26 EST ESRD (end stage renal disease) ([facility]) HEMODIALYSIS Routine 10/26/2024 6:19 EST ESRD (end stage renal disease) ([facility]) documented in this encounter Results * POCT GLUCOSE, INTERFACED (10/26/2024 7:58 EST) Glucose, POC 88 70 - 100 mg/dL 10/26/2024 8:00 EST [facility] HN LAB POC COMMENT (GLUCOSE) Test Performed by Nursing Services 10/26/2024 8:00 EST [facility] Blood CAPILLARY BLOOD / Unknown 10/26/2024 7:58 EST 10/26/2024 8:00 EST us Provider Unknown MD POINT OF CARE TEST ORDERABLE S Final Result Performing Organization Address City/[facility]/ZIP Co de Phone Number [facility] [address] [place] [address] * (ABNORMAL) POCT GLUCOSE, INTERFACED (10/26/2024 7:08 EST) Glucose, POC 116(H) 70 - 100 mg/dL 10/26/2024 7:09 EST [facility] HN LAB POC COMMENT (GLUCOSE) Test Performed by Nursing Services 10/26/2024 7:09 EST [facility] Blood CAPILLARY BLOOD / Unknown 10/26/2024 7:08 EST 10/26/2024 7:09 EST us Provider Unknown POINT OF CARE TEST ORDERABLE S Final Result Performing Organization Address [facility] Co de Phone Number [facility] [address] [place] [address] * POCT GLUCOSE, INTERFACED (10/26/2024 6:37 EST) Glucose, POC 95 70 - 100 mg/dL 10/26/2024 6:38 EST [facility] HN LAB POC COMMENT (GLUCOSE) Test Performed by Nursing Services 10/26/2024 6:38 EST [facility] Blood CAPILLARY BLOOD / Unknown 10/26/2024 6:37 EST 10/26/2024 6:38 EST us Provider Unknown MD POINT OF CARE TEST ORDERABLE S Final Result Performing Organization Address [facility]/ZIP Co de Phone Number [facility] [address] [place] [address] * (ABNORMAL) COMPLETE BLOOD COUNT (10/26/2024 6:26 EST) WBC 8.51 4.00 - 10.40 K/cmm 10/26/2024 22:26 [facility] RBC 3.35(L) 4.36 - 5.78 M/cmm 10/26/2024 22:26 [facility] Hemoglobin 10.0(L) 13.8 - 17.3 g/dL 10/26/2024 22:26 [facility] HCT 30.5(L) 39.5 - 50.2 % 10/26/2024 22:26 [facility] MCV 91 81 - 95 fL 10/26/2024 22:26 [facility] MCH 29.9 27.6 - 33.0 pg 10/26/2024 22:26 [facility] MCHC 32.8 32.8 - 36.4 g/dL 10/26/2024 22:26 [facility] RDW-CV 16.6(H) <14.2 % 10/26/2024 22:26 [facility] RDW-SD 54.6(H) <46.0 fl 10/26/2024 22:26 [facility] PLT 270 141 - 377 K/cmm 10/26/2024 22:26 [facility] MPV 11.9 9.5 - 12.7 fL 10/26/2024 22:26 [facility] Blood VENOUS BLOOD / Unknown Venipuncture / Unknown 10/26/2024 6:26 EST 10/26/2024 6:26 EST us Carlota Jin MD HEMATOLOGY & PF4 ORDERABL ES Final Result [facility] [address] [place] [address] documented in this encounter Visit Diagnoses Diagnosis ESRD (end stage renal disease) ([facility])- Primary End stage renal disease Hypoalbuminemia Other disorders of plasma protein metabolism Secondary hyperparathyroidism ([facility]) Secondary hyperparathyroidism (of renal origin) documented in this encounter Administered Medications Inactive Administered Medications - up to 3 most recent administrations Medication Order MAR Action Action Date Dose Rate Site calcium carbonate (TUMS) tablet 500 mg (200 mg elemental calcium) 2 Tablet 2 Tablet, oral, ONCE IN DIALYSIS, 1 dose, On Viridiana 10/26/24 at 0645, Routine, DialysisIndications:ESRD (end stage renal disease) ([facility]),Secondary hyperparathyroidism ([facility]) Given 10/26/2024 6:43 EST 2 Tablets dextrose 50 % solution 12.5 g 12.5 g, intravenous, NOW X1, 1 dose, On Viridiana 10/26/24 at 0700, RoutineIndications:ESRD (end stage renal disease) ([facility]) Given 10/26/2024 10:30 EST 12.5 g Given 10/26/2024 9:23 EST 12.5 g Given 10/26/2024 8:05 EST 12.5 g epoetin ken (EPOGEN) 20,000 unit/2 mL injection 5,000 Units 5,000 Units, intravenous, ONCE IN DIALYSIS, 1 dose, On Viridiana 10/26/24 at 0645, Routine, DialysisIndications:ESRD (end stage renal disease) ([facility]) Given 10/26/2024 6:43 EST 5,000 Units heparin injection 3,000 Units 3,000 Units, intravenous, ONCE IN DIALYSIS, 1 dose, On Viridiana 10/26/24 at 0645, Routine, Dialysis, Now x1 bolus 1500 units to be given at the beginning of dialysis 500 units/hour to be given over the course of dialysis (3000 units total). Stop 1 hour prior to end of treatment. To be administered per Policy [id number].Indications:ESRD (end stage renal disease) ([facility]) Given 10/26/2024 6:43 EST 3,000 Units LiquaCel liquid protein liquid 30 mL 30 mL, oral, ONCE IN DIALYSIS, 1 dose, On Viridiana 10/26/24 at 0645, Patient's flavor preference: either, Routine, DialysisIndications:ESRD (end stage renal disease) ([facility]),Hypoalbuminemia Given 10/26/2024 6:43 EST 30 mL documented in this encounter Discontinued Medications Medication Sig Discontinue Reason Start Date End Da te insulin lispro (HUMALOG) 100 unit/mL vial Inject into the skin 3 times daily before meals. 0-8 units subcutaneous q4hrs Therapy completed 10/26/2024 documented as of this encounter Orders Dialysis Count Last Ordered Date First Orde red Date HEMODIALYSIS 1 10/26/2024 documented in this encounter Care Teams Refinery Operator Alkylation Relationship Specialty Start Date End Date Ken Greer MD [address] [place] [address] PCP - General 07/07/23 Kiel Powers Warehouse Shipping Associate Nephrology 05/31/24 documented as of this encounter
--- OUTSIDE RECORDS SUMMARY | 2024-12-05 11:55 | XMS_ITS | Encounter Summary ---
Author Organization [facility] Address [address] [place] [address] Care Team Providers Care Oil Spot Washer Name Role Phone Ken Greer MD Primary Care Provider [phone] Kiel Powers Unavailable Unavailable Encounter Details Date Type Department Care Team (Late st Contact Info) Description 10/09/2024 Documentation Visit [place] [address] [place] [address] Alexa Estrada, [facility] [address] [place] [address] Social History Tobacco Use Types Packs/Day Years Used Date Smoking Tobacco: Every Day Cigarettes 1 26.1 Started: 1998 Smokeless Tobacco: Never Alcohol Use Standard Drinks/Week Comments Yes 0 (1 standard drink = 0.6 oz pur e alcohol) Socially [facility] Utilities Answer Date Recorded In the past 12 months has [facility] [employer], gas, oil, or water [employer] threatened to shut off services in your [...] were you homeless or living in a jail (including now)? No 05/30/2024 Interpersonal Safety Answer Date Record ed How often does anyone, martin lyons family, hit, punch or physically hurt you? 05/30/2024 How often does anyone, martin lyons family, insult, scream, curse or threaten to hurt you? 05/30/2024 Living Situation Answer Date Recorded What is your living situation today? I have a [facility] place to live 05/30/2024 Think about [...] th e electric, gas, oil, or water [employer] threatened to shut off services in your [...] this encounter Progress Notes * Alexa Estrada, YARD CLERK - 10/09/2024 1110 EST Operations [facility] Monthly Assessment UPDATE: Late entry for 10/02- SW met with pts and went over paperwork she got in the mail for Zander harry submitting her paperwork so that she can be the pts paid caregiver through Medicaid LTC. SW assisted her with her questions. No other needs at this time. SHANNON continues to submit mileage to the A for reimbursement. SHANNON will continue to follow. Current Living Situation: Lives with family and Lives with friends Lives with family Pt lives with his , Hoda, in their apartment in [place]. He rents the apartment and has a [...] Transportation Status: Transportation: Drives Self Payor: Receives [employer] mileage reimbursement. Change in Physical/Medical Status and [...] Patient/Family Strengths: Pt is friendly and engaging Interests/Spiritual/Amish Practice: No spiritual practices Depression Screening: Is patient eligible to complete the PHQ-9: Yes: PHQ-2 = Date patient last offered the PHQ-9: 12/03/23 KDQOL: KDQOL survey completion status: Refused Reason for not completing KDQOL: See above Financial/Insurance: Patient has Insurance: Yes Pay[place] / Plan[place] / Product Type: Medicare [place] / Prescription Coverage: Yes Changes in [...] Contact Info) Description 12/06/2024 6:45 EST Treatment [facility] [place] [address] [place], [place] [id number] Carlota Jin MD [address] [phone] 12/08/2024 6:45 EST Treatment [facility] [address] [place], [place] [id number] Carlota Jin MD [address] [place] [phone] 12/11/2024 6:45 EST Treatment [facility] [address] [place], [place] [id number] Carlota Jin MD [address] [place] [address] [phone] 12/13/2024 6:45 EST Treatment [facility] [address] [place], [place] [phone] Carlota Jin MD [address] [place] [address] [phone] 12/15/2024 6:45 EST Treatment [facility] [address] [place], [place] [phone] Carlota Jin MD [address] [place] [address] [address] [place] [phone] 12/18/2024 6:45 EST Treatment [facility] [place] [address] [place], [place] [phone] Carlota Jin MD 1 [facility], [facility] [address] [place] [phone] 12/20/2024 6:45 EST Treatment [facility] [address] [place], [place] [id number] Carlota Jin MD 1 [facility], [facility] [address] [place] [phone] 12/22/2024 6:45 EST Treatment [facility] [address] [place], [place] [id number] Carlota Jin MD 1 [facility], [facility] [address] [place] [phone] 12/25/2024 6:45 EST Treatment [facility] [address] [place] [address] Carlota Jin MD 1 [facility], [facility] [address] [place] [phone] 12/27/2024 6:45 EST Treatment [facility] [address] [place], [place] [phone] Carlota Jin MD 1 [facility], [facility] [address] [place] [phone] 12/29/2024 6:45 EST Treatment [facility] [place] [address] [place], [place] [id number] Carlota Jin MD 1 [facility], [facility] [address] [place] [phone] 01/01/2025 6:45 EDT Treatment [facility] [place] [address] [place], [place] [phone] Carlota Jin MD 1 [facility], [facility] [address] [place] [phone] 01/03/2025 6:45 EDT Treatment [facility] [place] [address] [place], [place] [id number] Carlota Jin MD 1 [facility], [address] [phone] 01/05/2025 6:45 EDT Treatment [facility] [place] [address] [place], [place] [phone] Carlota Jin MD 1 [facility], [address] [phone] 01/08/2025 6:45 EDT Treatment [facility] [place] [address] [place], [place] [phone] Carlota Jin MD 1 [facility], [facility] [address] [place] [phone] 01/10/2025 6:45 EDT Treatment [facility] [place] [address] [place], [place] [phone] Carlota Jin MD 1 [facility], Level [address] [place] [phone] 01/12/2025 6:45 EDT Treatment [facility] [place] [address] [place], [place] [address] Carlota Jin MD 1 [facility], [facility] [address] [place] [phone] 01/15/2025 6:45 EDT Treatment [facility] [place] [address] [place], [place] [phone] Carlota Jin MD 1 [facility], [facility] [address] [place] [phone] 01/17/2025 6:45 EDT Treatment [facility] [place] [address] [place], [place] [phone] Carlota Jin MD 1 [facility], [facility] [address] [place] [phone] 01/19/2025 6:45 EDT Treatment [facility] [place] [address] [place] [address] Carlota Jin MD 1 [facility], [facility] [address] [place] [phone] 01/22/2025 6:45 EDT Treatment [facility] [place] [address] [place], [place] [address] Carlota Jin MD 1 [facility], [facility] [address] [place] [phone] 01/24/2025 6:45 EDT Treatment [facility] [place] [address] [place], [place] [phone] Carlota Jin MD 1 [facility], [facility] [address] [place] [phone] 01/26/2025 6:45 EDT Treatment [facility] [place] [address] [place], [place] [phone] Carlota Jin MD 1 [facility], [facility] [address] [place] [phone] 01/29/2025 6:45 EDT Treatment [facility] [place] [address] [place] [address] Carlota Jin MD [address] [place] [address], [facility] [address] [place] [phone] 01/31/2025 6:45 EDT Treatment [facility] [place] [address] [place], [place] [phone] Carlota Jin MD [address] [place] [address], [facility] [address] [place] [phone] 02/02/2025 6:45 EDT Treatment [facility] [place] [address] [place], [place] [phone] Carlota Jin MD 1 [facility], [facility] [address] [place] [phone] 02/05/2025 6:45 EDT Treatment [facility] [place] [address] [place], [place] [phone] Carlota Jin MD 1 [facility], [facility] [address] [place] [phone] 02/07/2025 6:45 EDT Treatment [facility] [place] [address] [place], [place] [id number] Carlota Jin MD 1 [facility], [facility] [address] [place] [phone] 02/09/2025 6:45 EDT Treatment [facility] [place] [address] [place], [place] [phone] Carlota Jin MD 1 [facility], [facility] [address] [place] [phone] 02/12/2025 6:45 EDT Treatment [facility] [place] [address] [place], [place] [phone] Carlota Jin MD 1 [facility], [facility] [address] [place] [phone] 02/14/2025 6:45 EDT Treatment [facility] [place] [address] [place], [place] [phone] Carlota Jin MD 1 [facility], [facility] [address] [place] [phone] 02/16/2025 6:45 EDT Treatment [facility] [place] [address] [place], [place] [phone] Carlota Jin MD 1 [facility], [facility] [address] [place] [phone] 02/19/2025 6:45 EDT Treatment [place] [address] [place], [place] [phone] Carlota Jin MD 1 [facility], [facility] [address] [place] [phone] 02/21/2025 6:45 EDT Treatment [place] [address] [place], [place] [phone] Carlota Jin MD [address] [place] [address], [facility] [address] [place] [phone] documented as of this encounter Visit Diagnoses Not on filedocumented in this encounter Care Teams Oil Spot Washer Relationship Specialty Start Date End Date Ken Greer MD [facility] [place] [address] PCP - General 07/07/23 Kiel Powers [employer]asting [employer] Nephrology 05/31/24 documented as of this encounter
--- OUTSIDE RECORDS SUMMARY | 2024-12-05 11:56 | XMS_ITS | Encounter Summary ---
Author Organization [facility] Address [address] [place] [address] Care Team Providers Care Tawer Name Role Phone Ken Greer MD Primary Care Provider [phone] Kiel Powers Unavailable Unavailable Reason for Visit * Episode Based Medications (Routine) - New Request Specialty Diagnoses / Procedures Referred By Nader gardiner Referred To Contact Diagnoses ESRD (end stage renal disease) ([facility]) Carlota Jin MD [address] [place] [address], [facility] [address] [place] [address] Phone: tel: fax: [facility] [address] [place] [address] Phone: tel: fax: Referral ID Status Reason Start Date Expiration Date V isits Requested Visits Authorized [id number] New Request 03/17/2024 1 1 Encounter Details Date Type Department Care Team (Latest Contact Info) Description 10/02/2024 6:45 EST Treatment [facility] [address] [place] [id number] Carlota Jin MD [address] [place] [address], [facility] [address] [place] [address] ESRD (end stage renal disease) ([facility]) (Primary Dx); Hypoalbuminemia; [facility] Social History Tobacco Use Types Packs/Day [...] in a fdc (including now)? No 05/30/2024 Interpersonal Safety Answer [...] the past 12 months has th e [employer], gas, oil, or water [employer] threatened to shut off services in your [...] - Temperature - - Respiratory Rate 16 10/02/2024 0627 EST Oxygen Saturation - - Inhaled Oxygen Concentration - - Weight 77.7 kg (171 lb 4.8 oz) 10/02/[address] Height - - Body Mass [...] Flowsheet Note - Marcela Cox RN - 10/02/2024 1234 EST 10/02/24 1048 Post-Hemodialysis Assessment Total Blood Processed (L) 90.36 Liters On Line Clearance: spKt/V 1.61 spKt/V Dialyzer Clearance Lightly streaked Treatment UFR (ml:kg:hr) 8.24 ml:kg:hr Critline refill Not done Fluid Removed (L) 3 L Post-Dialysis Scale Weight 96 kg (211 lb 10.3 oz) Wheelchair Weight 20.8 kg (45 lb 13.7 oz) Prosthesis Weight 0 kg (0 lb) Post-Treatment Weight (kg) 75.2 Treatment Weight Change (kg) 2.5 kg Day Target Weight (kg) 75.2 Post Sitting/Lying BP 188/81 Post Sitting/Lying pulse 66 Temp 36.2 ??C (97.2 ??F) Temp src Temporal Minutes Short -242 Post access assessment Bruit present: Yes Thrill Present AVF/AFG Hemostasis achieved Yes Note Patient held for 10mins with blue clamp Orientation Alert and Oriented x3 Yes Time Yes Place Yes Person Yes Cooperative Yes Disoriented No Discharge Ambulation Methods With patient transport;Departs via w/c Wrap up items Patient Response to Treatment Tolerated tx well. Removed 3L UF goal without difficulty. Comments No issues during tx, no concerns voiced post tx. * Dialysis Rounding - Carlota Jin MD - 10/02/2024 0614 EST TELEMEDICINE VIDEO VISIT Today's visit was provided through telemedicine video conferencing: I have reviewed the appropriateness of using video technology with the patient with regards to today's visit. The location of the patient : Not at home (another medical/non-medical, personal spaces outside [facility]) The location of the provider: Office The following people and their roles were present for today's visit: Appointment Provider: MD Gerson Valdivia RN Alison F Fitzgerald, MD Dialysis Provider's Routine Assessment Gersonharish Kimaleks was seen and examined as appropriate during Dialysis. Pertinent lab results were reviewed. Changes since last visit: Checking blood sugars at every session (mid-session and at the end of dialysis) Changes to current prescriptions/orders: None K noted to be 8 earlier this month. He refuses to take kayexalate. Phos is 11.2. He says that he has been trying to adhere to the renal diet, but then also says that he eats a lot of potatoes. It is unclear how much insight vs motivation he has at this time. His is aware of these issues as well. Concern per nursing of his low blood sugars. When blood sugar is less than 100, protocol is to givejuice. However, he has been having issues with swallowing and when he tries to drink the juice, he has significant coughing and is noted to turn blue during some of these coughing fits. We agreed that giving D50 is more appropriate. I have reached out to PCP to discuss both his insulin regimen as well as his swallowing issues. I was sent to so I left a message to have PCP return my call. PCP Ismael Gusman, Carlota Jin MD The concept of ???Telemedicine?? [...] Contact Info) Description 12/06/2024 6:45 EST Treatment [facility] [address] [place], [place] [phone] Carlota Jin MD 1 [facility], [facility] [address] [place] [phone] 12/08/2024 6:45 EST Treatment [facility] [address] [place], [place] [phone] Carlota Jin MD 1 [facility], [facility] [address] [place] [phone] 12/11/2024 6:45 EST Treatment [facility] [address] [place], [place] [phone] Carlota Jin MD 1 [facility], [facility] [address] [place] [phone] 12/13/2024 6:45 EST Treatment [facility] [address] [place], [place] [phone] Carlota Jin MD 1 [facility], [facility] [address] [place] [phone] 12/15/2024 6:45 EST Treatment [facility] [address] [place], [place] [phone] Carlota Jin MD 1 [facility], [facility] [address] [place] [phone] 12/18/2024 6:45 EST Treatment [facility] [address] [place] [address] Carlota Jin MD 1 [facility], [address] [phone] 12/20/2024 6:45 EST Treatment [facility] [address] [place], [place] [phone] Carlota Jin MD 1 [facility], [address] [phone] 12/22/2024 6:45 EST Treatment [facility] [address] [place], [place] [phone] Carlota Jin MD 1 [facility], [address] [phone] 12/25/2024 6:45 EST Treatment [facility] [address] [place], [place] [phone] Carlota Jin MD 1 [facility], [address] [phone] 12/27/2024 6:45 EST Treatment [facility] [address] [place], [place] [phone] Carlota Jin MD 1 [facility], [facility] [address] [place] [phone] 12/29/2024 6:45 EST Treatment [facility] [address] [place], [place] [phone] Carlota Jin MD 1 [facility], [facility] [address] [place] [phone] 01/01/2025 6:45 EDT Treatment [facility] [address] [place], [place] [phone] Carlota Jin MD 1 [facility], [address] [phone] 01/03/2025 6:45 EDT Treatment [facility] [address] [place], [place] [phone] Carlota Jin MD 1 [facility], [address] [phone] 01/05/2025 6:45 EDT Treatment [facility] [address] [place], [place] [phone] Carlota Jin MD 1 [facility], [facility] [address] [place] [phone] 01/08/2025 6:45 EDT Treatment [facility] [address] [place], [place] [phone] Carlota Jin MD 1 [facility], [facility] [address] [place] [phone] 01/10/2025 6:45 EDT Treatment [facility] [address] [place], [place] [phone] Carlota Jin MD 1 [facility], [facility] [address] [place] [phone] 01/12/2025 6:45 EDT Treatment [facility] [address] [place], [place] [phone] Carlota Jin MD 1 [facility], [facility] [address] [place] [phone] 01/15/2025 6:45 EDT Treatment [facility] [address] [place], [place] [phone] Cralota Jin MD 1 [facility], [facility] [address] [place] [phone] 01/17/2025 6:45 EDT Treatment [facility] [address] [place], [place] [phone] Carlota Jin MD 1 [facility], [facility] [address] [place] [phone] 01/19/2025 6:45 EDT Treatment [facility] [address] [place], [place] [phone] Carlota Jin MD 1 [facility], [facility] [address] [place] [phone] 01/22/2025 6:45 EDT Treatment [facility] [place] [address] [place], [place] [phone] Carlota Jin MD 1 [facility], [facility] [address] [place] [phone] 01/24/2025 6:45 EDT Treatment [facility] [address] [place], [place] [id number] Carlota Jin MD 1 [facility], [facility] [address] [place] [phone] 01/26/2025 6:45 EDT Treatment [facility] [address] [place], [place] [phone] Carlota Jin MD 1 [facility], [facility] [address] [place] [phone] 01/29/2025 6:45 EDT Treatment [facility] [place] [address] [place], [place] [phone] Carlota Jin MD 1 [facility], [facility] [address] [place] [phone] 01/31/2025 6:45 EDT Treatment [facility] [place] [address] [place] [address] Carlota Jin MD 1 [facility], [facility] [address] [place] [phone] 02/02/2025 6:45 EDT Treatment [facility] [address] [place], [place] [phone] Carlota Jin MD 1 [facility], [facility] [address] [place] [phone] 02/05/2025 6:45 EDT Treatment [facility] [address] [place], [place] [phone] Carlota Jin MD 1 [facility], [facility] [address] [place] [phone] 02/07/2025 6:45 EDT Treatment [facility] [place] [address] [place], [place] [phone] Carlota Jin MD [address] [place] [address], [facility] [address] [place] [phone] 02/09/2025 6:45 EDT Treatment [facility] [address] [place], [place] [phone] Carlota Jin MD [address] [place] [address], [address] [phone] 02/12/2025 6:45 EDT Treatment [facility] [place] [address] [place], [place] [phone] Carlota Jin MD [address] [place] [address], [facility] [address] [place] [phone] 02/14/2025 6:45 EDT Treatment [facility] [place] [address] [place], [place] [phone] Carlota Jin MD 1 [facility], [facility] [address] [place] [phone] 02/16/2025 6:45 EDT Treatment [facility] [place] [address] [place], [place] [phone] Carlota Jin MD 1 [facility], Level [address] [place] [phone] 02/19/2025 6:45 EDT Treatment [facility] [place] [address] [place], [place] [phone] Carlota Jin MD 1 [facility], Level [address] [place] [phone] 02/21/2025 6:45 EDT Treatment [facility] [place] [address] [place] [phone] Carlota Jin MD 1 [facility], [facility] [address] [place] [phone] documented as of this encounter Procedures Procedure Name Priority Date/Time Associated Diagnosis Comments POCT GLUCOSE, INTERFACED Routine 10/02/2024 10:48 EST POCT GLUCOSE, INTERFACED Routine 10/02/2024 9:53 EST POCT GLUCOSE, INTERFACED Routine 10/02/2024 9:33 EST HEMODIALYSIS Routine 10/02/2024 6:27 EST ESRD (end stage renal disease) ([facility]) documented in this encounter Results * POCT GLUCOSE, INTERFACED (10/02/2024 10:48 EST) Glucose, POC 99 70 - 100 mg/dL 10/02/2024 10:54 EST [facility] HN LAB POC COMMENT (GLUCOSE) Test Performed by Nursing Services 10/02/2024 10:54 EST [facility] Blood CAPILLARY BLOOD / Unknown 10/02/2024 10:48 EST 10/02/2024 10:54 EST Carlota Jin MD POINT OF CARE TEST ORDERA BLES Final Result [facility] [address] [place] [address] * POCT GLUCOSE, INTERFACED (10/02/2024 9:53 EST) Glucose, POC 99 70 - 100 mg/dL 10/02/2024 10:54 EST [facility] HN LAB POC COMMENT (GLUCOSE) Test Performed by Nursing Services 10/02/2024 10:54 EST [facility] Blood CAPILLARY BLOOD / Unknown 10/02/2024 9:53 EST 10/02/2024 10:54 EST us Carlota Jin MD POINT OF CARE TEST ORDERA BLES Final Result Performing Organization Address City/[facility]/ZIP Co de Phone Number [facility] [address] [place] [phone] * POCT GLUCOSE, INTERFACED (10/02/2024 9:33 EST) Glucose, POC 93 70 - 100 mg/dL 10/02/2024 10:54 EST [facility] HN LAB POC COMMENT (GLUCOSE) Test Performed by Nursing Services 10/02/2024 10:54 EST [facility] Blood CAPILLARY BLOOD / Unknown 10/02/2024 9:33 EST 10/02/2024 10:54 EST Carlota Jin MD POINT OF CARE TEST ORDERA BLES Final Result [facility] [address] [place] [address] documented in this encounter Visit Diagnoses Diagnosis ESRD (end stage renal disease) ([facility])- Primary End stage renal disease Hypoalbuminemia Other disorders of plasma protein metabolism Secondary hyperparathyroidism ([facility]) Secondary hyperparathyroidism (of renal origin) documented in this encounter Administered Medications Inactive Administered Medications - up to 3 most recent administrations Medication Order MAR Action Action Date Dose Rate Site calcium carbonate (TUMS) tablet 500 mg (200 mg elemental calcium) 2 Tablet 2 Tablet, oral, ONCE IN DIALYSIS, 1 dose, On Wed10/02/24 at 0645, Routine, DialysisIndications:ESRD (end stage renal disease) ([facility]),Secondary hyperparathyroidism ([facility]) Given 10/02/2024 6:30 EST 2 Tablets heparin injection 3,000 Units 3,000 Units, intravenous, ONCE IN DIALYSIS, 1 dose, On Wed10/02/24 at 0645, Routine, Dialysis, Now x1 bolus 1500 units to be given at the beginning of dialysis 500 units/hour to be given over the course of dialysis (3000 units total). Stop 1 hour prior to end of treatment. To be administered per Policy [id number].Indications:ESRD (end stage renal disease) ([facility]) Given 10/02/2024 6:48 EST 3,000 Units LiquaCel liquid protein liquid 30 mL 30 mL, oral, ONCE IN DIALYSIS, 1 dose, On Wed10/02/24 at 0645, Patient's flavor preference: either, Routine, DialysisIndications:ESRD (end stage renal disease) ([facility]),Hypoalbuminemia Given 10/02/2024 6:30 EST 30 mL documented in this encounter Orders Dialysis Count Last Ordered Date First Orde red Date HEMODIALYSIS 1 10/02/2024 documented in this encounter Care Teams Tawer Relationship Specialty Start Date End Date Ken Greer MD [address] [place] [address] PCP - General 07/07/23 Kiel Powers Medical Radiation Tech Nephrology 05/31/24 documented as of this encounter
--- OUTSIDE RECORDS SUMMARY | 2024-12-05 11:56 | XMS_ITS | Encounter Summary ---
Author Organization [facility] Address [address] [place] [address] Care Team Providers Care Oil Pipeline Operator Name Role Phone Ken Greer MD Primary Care Provider [phone] Kiel Powers Unavailable Unavailable Reason for Visit * Episode Based Medications (Routine) - New Request Specialty Diagnoses / Procedures Referred By Nader gardiner Referred To Contact Diagnoses ESRD (end stage renal disease) ([facility]) Carlota Jin MD [address] [place] [address], [facility] [address] [place] [address] Phone: tel: fax: [facility] [place] [address] [place] [address] Phone: tel: fax: Referral ID Status Reason Start Date Expiration Date V isits Requested Visits Authorized [id number] New Request 03/17/2024 1 1 Encounter Details Date Type Department Care Team (Latest Contact Info) Description 09/18/2024 6:45 EST Treatment [facility] [address] [place] [id number] Carlota Jin MD [address] [place] [address], [facility] [address] [place] [address] ESRD (end stage renal disease) ([facility]) (Primary Dx); Hypoalbuminemia; Secondary hyperparathyroidism ([facility]) Social History Tobacco Use Types Packs/Day Years Used Date Smoking Tobacco: Every Day Cigarettes 1 26.1 Started: 1998 Smokeless Tobacco: Never Alcohol Use Standard Drinks/Week Comments Yes 0 (1 standard drink = 0.6 oz pur e alcohol) Socially [facility] Utilities Answer Date Recorded In the [...] time in the past 12 m [facility], were you homeless or living [...] you? Never 05/30/2024 How often does anyone, amrtin lyons family and friends, insult or talk [...] the past 12 months has th e [employer], gas, oil, or water [employer] threatened to shut off services in your [...] - Temperature - - Respiratory Rate 16 09/18/2024 0631 EST Oxygen Saturation - - Inhaled Oxygen Concentration - - Weight 80 kg (176 lb 5.9 oz) 09/18/2024 0628 EST Height - - Body Mass Index 25.31 07/20/2024 1359 EDT documented in this encounter [...] Progress Notes * Marcela Cox RN - 09/18/2024 0645 EST Pt acting off at the end of tx, (very slow to respond). BS check with result of 30. Glucose gel tube given. 10 min recheck result of 64 and then 68. Gave pt cranberry juice and naya crackers. Repeat blood sugar result of 220. Pt now acting normal, and his reports this is more in his normal range. MD/AIRLINE HOSTESS made aware. Pt d/c to home with . documented in this encounter Miscellaneous Notes * Flowsheet Note - Marcela Cox RN - 09/18/2024 1432 EST 09/18/24 1045 Post-Hemodialysis Assessment Total Blood Processed (L) 89.62 Liters On Line Clearance: spKt/V 1.49 spKt/V Dialyzer Clearance Lightly streaked Treatment UFR (ml:kg:hr) 12.12 ml:kg:hr Critline refill Not done Fluid Removed (L) 4.3 L Post-Dialysis Scale Weight 107.7 kg (237 lb 7 oz) Wheelchair Weight 31.4 kg (69 lb 3.6 oz) Prosthesis Weight 0 kg (0 lb) Post-Treatment Weight (kg) 76.3 Treatment Weight Change (kg) 3.7 kg Day Target Weight (kg) 76.2 Post Sitting/Lying BP (!) 185/93 Post Sitting/Lying pulse 66 Temp 36.4 ??C (97.5 ??F) Temp src Temporal Minutes Short -240 Post access assessment AVF/AFG Hemostasis achieved Yes Note 10 minute hold with blue clamps Orientation Alert and Oriented x3 Yes (see RN note, pt orientation improved as BS improved post tx) Time Yes Place Yes Person Yes Cooperative Yes Disoriented No Discharge Ambulation Methods Departs via w/c;With patient transport Wrap up items Patient Response to Treatment Tolerated tx well. Removed 4.3L UF goal without difficulty. Comments see alternate note, BS low at end of tx, provided intervention and BS normal and mentationbaseline at time of discharge * Dialysis Rounding - Carlota Jin MD - 09/18/2024 0645 EST TELEMEDICINE VIDEO VISIT Today's visit was provided through telemedicine video conferencing: I have reviewed the appropriateness of using video technology with the patient with regards to today's visit. The location of the patient : Not at home (another medical/non-medical, personal spaces outside [facility]) The location of the provider: Office The following people and their roles were present for today's visit: Appointment Provider: MD Gerson Valdivia RN Alison F Fitzgerald, MD Dialysis Provider's Routine Assessment Gerson Bruner was seen and examined as appropriate during Dialysis. Pertinent lab results were reviewed. Changes since last visit: None Changes to current prescriptions/orders: None Xander was particularly difficult to communicate with today towards the end of his dialysis session. He was somnolent and appeared confused and was not interactive. Blood sugar was checked and was low at 30. He was given oral replacement and it improved to the 200s. He was reportedly back to his baseline. Moving forward, we will plan to check his blood sugar regularly towards the end of his dialysis session. More importantly, his insulin regimen should be revisited by his PCP, and his pre-dialysis routine should be reviewed with him and his (I.e. does he eat before dialysis? When does he take his insulin? Does he know how/if/when to adjust it?)/ Carlota Jin MD The concept of ???Telemedicine?? [...] Contact Info) Description 12/06/2024 6:45 EST Treatment [facility] [address] [place], [place] [phone] Carlota Jin MD [address] [place] [address], [facility] [address] [place] [address] 12/08/2024 6:45 EST Treatment [facility] [address] [place], [place] [id number] Carlota Jin MD 1 [facility], [facility] [address] [place] [phone] 12/11/2024 6:45 EST Treatment [facility] [address] [place], [place] [id number] Carlota Jin MD 1 [facility], [facility] [address] [place] [phone] 12/13/2024 6:45 EST Treatment [facility] [place] [address] [place], [place] [address] Carlota Jin MD 1 [facility], [facility] [address] [place] [phone] 12/15/2024 6:45 EST Treatment [facility] [place] [address] [place] [address] Carlota Jin MD 1 [facility], [address] [phone] 12/18/2024 6:45 EST Treatment [facility] [place] [address] [place], [place] [id number] Carlota Jin MD 1 [facility], [address] [phone] 12/20/2024 6:45 EST Treatment [facility] [address] [place] [address] Carlota Jin MD 1 [facility], [address] [phone] 12/22/2024 6:45 EST Treatment [facility] [address] [place], [place] [id number] Carlota Jin MD [address] [phone] 12/25/2024 6:45 EST Treatment [facility] [address] [place], [place] [id number] Carlota Jin MD 1 [facility], [facility] [address] [place] [phone] 12/27/2024 6:45 EST Treatment [facility] [place] [address] [place], [place] [id number] Carlota Jin MD 1 [facility], [facility] [address] [place] [phone] 12/29/2024 6:45 EST Treatment [facility] [place] [address] [place], [place] [id number] Carlota Jin MD 1 [facility], [facility] [address] [place] [phone] 01/01/2025 6:45 EDT Treatment [facility] [place] [address] [place] [address] Carlota Jin MD 1 [facility], [facility] [address] [place] [phone] 01/03/2025 6:45 EDT Treatment [facility] [place] [address] [place], [place] [id number] Carlota Jin MD 1 [facility], [facility] [address] [place] [phone] 01/05/2025 6:45 EDT Treatment [facility] [place] [address] [place], [place] [id number] Carlota Jin MD 1 [facility], [facility] [address] [place] [phone] 01/08/2025 6:45 EDT Treatment [facility] [place] [address] [place], [place] [address] Carlota Jin MD 1 [facility], [facility] [address] [place] [phone] 01/10/2025 6:45 EDT Treatment [facility] [place] [address] [place], [place] [id number] Carlota Jin MD 1 [facility], [facility] [address] [place] [phone] 01/12/2025 6:45 EDT Treatment [facility] [place] [address] [place], [place] [id number] Carlota Jin MD 1 [facility], [address] [phone] 01/15/2025 6:45 EDT Treatment [facility] [place] [address] [place], [place] [id number] Carlota Jin MD [address] [phone] 01/17/2025 6:45 EDT Treatment [facility] [place] [address] [place], [place] [id number] Carlota Jin MD [address] [phone] 01/19/2025 6:45 EDT Treatment [facility] [place] [address] [place], [place] [id number] Carlota Jin MD 1 [facility] [address] [place] [phone] 01/22/2025 6:45 EDT Treatment [facility] [place] [address] [place], [place] [id number] Carlota Jin MD 1 [facility], [facility] [address] [place] [phone] 01/24/2025 6:45 EDT Treatment [facility] [place] [address] [place], [place] [id number] Carlota Jin MD 1 [facility], [facility] [address] [place] [phone] 01/26/2025 6:45 EDT Treatment [facility] [place] [address] [place], [place] [id number] Carlota Jin MD 1 [facility], [facility] [address] [place] [phone] 01/29/2025 6:45 EDT Treatment [facility] [place] [address] [place] [address] Carlota Jin MD 1 [facility], [facility] [address] [place] [phone] 01/31/2025 6:45 EDT Treatment [facility] [address] [place], [place] [id number] Carlota Jin MD 1 [facility], [facility] [address] [place] [phone] 02/02/2025 6:45 EDT Treatment [facility] [place] [address] [place], [place] [id number] Carlota Jin MD 1 [facility], [facility] [address] [place] [phone] 02/05/2025 6:45 EDT Treatment [facility] [place] [address] [place], [place] [id number] Carlota Jin MD [address] [place] [address], [address] [phone] 02/07/2025 6:45 EDT Treatment [facility] [place] [address] [place], [place] [id number] Carlota Jin MD [address] [place] [address], [address] [phone] 02/09/2025 6:45 EDT Treatment [facility] [place] [address] [place], [place] [phone] Carlota Jni MD [address] [place] [address], [facility] [address] [place] [phone] 02/12/2025 6:45 EDT Treatment [facility] [place] [address] [place], [place] [id number] Carlota Jin MD 1 [facility], [facility] [address] [place] [phone] 02/14/2025 6:45 EDT Treatment [facility] [place] [address] [place], [place] [id number] Carlota Jin MD 1 [facility] [address] [place] [phone] 02/16/2025 6:45 EDT Treatment [facility] [place] [address] [place] [id number] Carlota Jin MD 1 [facility], [facility] [address] [place] [phone] 02/19/2025 6:45 EDT Treatment [facility] [place] [address] [place], [place] [phone] Carlota Jin MD 1 [facility], [facility] [address] [place] [phone] 02/21/2025 6:45 EDT Treatment [facility] [place] [address] [place], [place] [phone] Carlota Jin MD 1 [facility], [facility] [address] [place] [phone] documented as of this encounter Procedures Procedure Name Priority Date/Time Associated Diagnosis Comments POCT GLUCOSE, INTERFACED Routine 09/18/2024 11:45 EST POCT GLUCOSE, INTERFACED Routine 09/18/2024 11:31 EST POCT GLUCOSE, INTERFACED Routine 09/18/2024 11:25 EST POCT GLUCOSE, INTERFACED Routine 09/18/2024 11:19 EST POCT GLUCOSE, INTERFACED Routine 09/18/2024 11:10 EST HEMODIALYSIS Routine 09/18/2024 6:31 EST ESRD (end stage renal disease) ([facility]) documented in this encounter Results * (ABNORMAL) POCT GLUCOSE, INTERFACED (09/18/2024 11:45 EST) Glucose, POC 222(H) 70 - 100 mg/dL 09/18/2024 11:46 EST [facility] HN LAB POC COMMENT (GLUCOSE) Test Performed by Nursing Services 09/18/2024 11:46 EST [facility] Blood CAPILLARY BLOOD / Unknown 09/18/2024 11:45 EST 09/18/2024 11:46 EST us Carlota Jin MD POINT OF CARE TEST ORDERA BLES Final Result Performing Organization Address City/[facility]/ZIP Co de Phone Number [facility] [address] [place] [address] * (ABNORMAL) POCT GLUCOSE, INTERFACED (09/18/2024 11:31 EST) Glucose, POC 68(L) 70 - 100 mg/dL 09/18/2024 11:32 EST [facility] HN LAB POC COMMENT (GLUCOSE) Test Performed by Nursing Services 09/18/2024 11:32 EST [facility] Blood CAPILLARY BLOOD / Unknown 09/18/2024 11:31 EST 09/18/2024 11:32 EST us Carlota Jin MD POINT OF CARE TEST ORDERA BLES Final Result [facility] [address] [place] [address] * (ABNORMAL) POCT GLUCOSE, INTERFACED (09/18/2024 11:25 EST) Glucose, POC 64(L) 70 - 100 mg/dL 09/18/2024 11:26 EST [facility] HN LAB POC COMMENT (GLUCOSE) Test Performed by Nursing Services 09/18/2024 11:26 EST [facility] Blood CAPILLARY BLOOD / Unknown 09/18/2024 11:25 EST 09/18/2024 11:26 EST us Carlota Jin MD POINT OF CARE TEST ORDERA BLES Final Result [facility] [address] [place], [place] [id number] * (ABNORMAL) POCT GLUCOSE, INTERFACED (09/18/2024 11:19 EST) Glucose, POC 35(LL) 70 - 100 mg/dL 09/18/2024 11:23 EST [facility] HN LAB POC COMMENT (GLUCOSE) Test Performed by Nursing Services 09/18/2024 11:23 EST [facility] Blood CAPILLARY BLOOD / Unknown 09/18/2024 11:19 EST 09/18/2024 11:23 EST us Carlota Jin MD POINT OF CARE TEST ORDERA BLES Final Result Performing Organization Address [facility]/ZIP Co de Phone Number [facility] [address] [place] [address] * (ABNORMAL) POCT GLUCOSE, INTERFACED (09/18/2024 11:10 EST) Glucose, POC 30(LL) 70 - 100 mg/dL 09/18/2024 11:11 EST [facility] HN LAB POC COMMENT (GLUCOSE) Test Performed by Nursing Services 09/18/2024 11:11 EST [facility] Blood CAPILLARY BLOOD / Unknown 09/18/2024 11:10 EST 09/18/2024 11:11 EST us Carlota Jin MD POINT OF CARE TEST ORDERA BLES Final Result Performing Organization Address City/[facility]/ZIP Co de Phone Number [facility] [address] [place] [address] documented in this encounter Visit Diagnoses Diagnosis ESRD (end stage renal disease) ([facility])- Primary End stage renal disease Hypoalbuminemia Other disorders of plasma protein metabolism Secondary hyperparathyroidism ([facility]) Secondary hyperparathyroidism (of renal origin) documented in this encounter Administered Medications Inactive Administered Medications - up to 3 most recent administrations Medication Order MAR Action Action Date Dose Rate Site calcium carbonate (TUMS) tablet 500 mg (200 mg elemental calcium) 2 Tablet 2 Tablet, oral, ONCE IN DIALYSIS, 1 dose, On Wed09/18/24 at 0700, Routine, DialysisIndications:ESRD (end stage renal disease) ([facility]),Secondary hyperparathyroidism ([facility]) Given 09/18/2024 6:37 EST 2 Tablets heparin injection 3,000 Units 3,000 Units, intravenous, ONCE IN DIALYSIS, 1 dose, On Wed09/18/24 at 0700, Routine, Dialysis, Now x1 bolus 1500 units to be given at the beginning of dialysis 500 units/hour to be given over the course of dialysis (3000 units total). Stop 1 hour prior to end of treatment. To be administered per Policy [id number].Indications:ESRD (end stage renal disease) ([facility]) Given 09/18/2024 6:51 EST 3,000 Units LiquaCel liquid protein liquid 30 mL 30 mL, oral, ONCE IN DIALYSIS, 1 dose, On Wed09/18/24 at 0700, Patient's flavor preference: either, Routine, DialysisIndications:ESRD (end stage renal disease) ([facility]),Hypoalbuminemia Given 09/18/2024 6:37 EST 30 mL documented in this encounter Orders Dialysis Count Last Ordered Date First Orde red Date HEMODIALYSIS 1 09/18/2024 documented in this encounter Care Teams Oil Pipeline Operator Relationship Specialty Start Date End Date Ken Greer MD [address] [place] [address] PCP - General 07/07/23 Kiel Powers Dev Manager Nephrology 05/31/24 documented as of this encounter
--- OUTSIDE RECORDS SUMMARY | 2024-12-05 11:56 | XMS_ITS | Encounter Summary ---
Author Organization [facility] Address [address] [place] [address] Care Team Providers Care Senior Hr Manager Name Role Phone Ken Greer MD Primary Care Provider [phone] Kiel Powers Unavailable Unavailable Reason for Visit * Episode Based Medications (Routine) - New Request Specialty Diagnoses / Procedures Referred By Nader gardiner Referred To Contact Diagnoses ESRD (end stage renal disease) ([facility]) Carlota Jin MD [address] [place] [address], [facility] [address] [place] [address] Phone: tel: fax: [facility] - [place] [address] [place] [address] Phone: tel: fax: Referral ID Status Reason Start Date Expiration Date V isits Requested Visits Authorized [id number] New Request 03/17/2024 1 1 Encounter Details Date Type Department Care Team (Latest Contact Info) Description 09/22/2024 6:45 EST Treatment [facility] [address] [place] [id number] Carlota Jin MD [address] [place] [address], [facility] [address] [place] [address] ESRD (end stage renal disease) ([facility]) (Primary Dx); Hypoalbuminemia; [facility] Social History Tobacco Use Types Packs/Day Years Used Date Smoking Tobacco: Every Day Cigarettes 1 26.1 Started: 1998 Smokeless Tobacco: Never Alcohol Use Standard Drinks/Week Comments Yes 0 (1 standard drink = 0.6 oz pur e alcohol) Socially [facility] Utilities Answer Date Recorded In the [...] in the past 12 m [facility], were you homeless or living [...] Record ed How often does anyone, martin lynos family and friends, physically hurt you? Never [...] the past 12 months has th e [employer], gas, oil, or water Existence Before [employer] threatened to shut off services in your [...] - Temperature - - Respiratory Rate 16 09/22/2024 0625 EST Oxygen Saturation - - Inhaled Oxygen Concentration - - Weight 79 kg (174 lb 2.6 oz) 09/22/2024 0621 EST Height - - Body Mass Index 24.99 07/20/2024 1359 EDT documented in this encounter [...] Flowsheet Note - Marcela Cox RN - 09/22/2024 1247 EST 09/22/24 1053 Post-Hemodialysis Assessment Total Blood Processed (L) 89.85 Liters On Line Clearance: spKt/V 1.49 spKt/V Dialyzer Clearance Lightly streaked Treatment UFR (ml:kg:hr) 11.79 ml:kg:hr Critline refill Not done Fluid Removed (L) 4 L Post-Dialysis Scale Weight 94.3 kg (207 lb 14.3 oz) Wheelchair Weight 19 kg (41 lb 14.2 oz) Prosthesis Weight 0 kg (0 lb) Post-Treatment Weight (kg) 75.3 Treatment Weight Change (kg) 3.7 kg Day Target Weight (kg) 75.5 Post Sitting/Lying BP 162/85 Post Sitting/Lying pulse 65 Temp 36.3 ??C (97.3 ??F) Temp src Temporal Minutes Short -250 Post access assessment Bruit present: Yes Thrill Present AVF/AFG Hemostasis achieved Yes Note Patient held for 10mins with blue clamps without any issues Orientation Alert and Oriented x3 Yes Time Yes Place Yes Person Yes Cooperative Yes Disoriented No Discharge Ambulation Methods Departs via w/c;With patient transport Wrap up items Patient Response to Treatment Tolerated tx well. Removed 4L UF goal without difficulty. Comments No issues during tx, no concerns voiced post tx. documented in this encounter Plan of Treatment Upcoming Encounters Date Type Department Care Team (Late st Contact Info) Description 12/06/2024 6:45 EST Treatment [facility] - [place] [address] [place], [place] [id number] Carlota Jin MD 1 [facility], [facility] [address] [place] [phone] 12/08/2024 6:45 EST Treatment [facility] - [place] [address] [place], [place] [id number] Carlota Jin MD 1 [facility], [address] [phone] 12/11/2024 6:45 EST Treatment [facility] - [place] [address] [place], [place] [phone] Carlota Jin MD 1 [facility], [address] [phone] 12/13/2024 6:45 EST Treatment [facility] [place] [address] [place], [place] [phone] Carlota Jin MD 1 [facility], [address] [phone] 12/15/2024 6:45 EST Treatment [facility] [place] [address] [place], [place] [phone] Carlota Jin MD 1 [facility], [address] [phone] 12/18/2024 6:45 EST Treatment [facility] - [place] [address] [place], [place] [phone] Carlota Jin MD 1 [facility], [facility] [address] [place] [phone] 12/20/2024 6:45 EST Treatment [facility] - [place] [address] [place], [place] [phone] Carlota Jin MD 1 [facility], [facility] [address] [place] [phone] 12/22/2024 6:45 EST Treatment [facility] - [place] [address] [place], [place] [phone] Carlota Jin MD 1 [facility], [facility] [address] [place] [phone] 12/25/2024 6:45 EST Treatment [facility] - [place] [address] [place], [place] [phone] Carlota Jin MD 1 [facility], [facility] [address] [place] [phone] 12/27/2024 6:45 EST Treatment [facility] - [place] [address] [place], [place] [phone] Carlota Jin MD 1 [facility], [facility] [address] [place] [phone] 12/29/2024 6:45 EST Treatment [facility] - [place] [address] [place], [place] [phone] Carlota Jin MD 1 [facility], Level [address] [place] [phone] 01/01/2025 6:45 EDT Treatment [facility] - [place] [address] [place], [place] [id number] Carlota Jin MD 1 [facility], [facility] [address] [place] [phone] 01/03/2025 6:45 EDT Treatment [facility] [address] [place], [place] [phone] Carlota Jin MD 1 [facility], [facility] [address] [place] [phone] 01/05/2025 6:45 EDT Treatment [facility] - [place] [address] [place] [address] Carlota Jin MD 1 [facility], [facility] [address] [place] [phone] 01/08/2025 6:45 EDT Treatment [facility] [address] [place], [place] [phone] Carlota Jin MD 1 [facility], [facility] [address] [place] [phone] 01/10/2025 6:45 EDT Treatment [facility] [address] [place], [place] [phone] Carlota Jin MD 1 [facility], [facility] [address] [place] [phone] 01/12/2025 6:45 EDT Treatment [facility] - [place] [address] [place], [place] [phone] Carlota Jin MD 1 [facility], [facility] [address] [place] [phone] 01/15/2025 6:45 EDT Treatment [facility] - [place] [address] [place], [place] [phone] Carlota Jin MD 1 [facility], [facility] [address] [place] [phone] 01/17/2025 6:45 EDT Treatment [facility] - [place] [address] [place], [place] [phone] Carlota Jin MD [address] [place] [address], [facility] [address] [place] [phone] 01/19/2025 6:45 EDT Treatment [facility] - [place] [address] [place], [place] [phone] Carlota Jin MD 1 [facility], [facility] [address] [place] [phone] 01/22/2025 6:45 EDT Treatment [facility] - [place] [address] [place], [place] [phone] Carlota Jin MD 1 [facility], [facility] [address] [place] [phone] 01/24/2025 6:45 EDT Treatment [facility] - [place] [address] [place], [place] [phone] Carlota Jin MD 1 [facility], [facility] [address] [place] [phone] 01/26/2025 6:45 EDT Treatment [facility] - [place] [address] [place], [place] [phone] Carlota Jin MD 1 [facility], [facility] [address] [place] [phone] 01/29/2025 6:45 EDT Treatment [facility] - [place] [address] [place] [address] Carlota Jin MD 1 [facility], [address] [phone] 01/31/2025 6:45 EDT Treatment [facility] - [place] [address] [place], [place] [phone] Carlota Jin MD 1 [facility], [address] [phone] 02/02/2025 6:45 EDT Treatment [facility] - [place] [address] [place] [address] Carlota Jin MD 1 [facility], [facility] [address] [place] [phone] 02/05/2025 6:45 EDT Treatment [facility] - [place] [address] [place], [place] [phone] Carlota Jin MD 1 [facility], [facility] [address] [place] [phone] 02/07/2025 6:45 EDT Treatment [facility] - [place] [address] [place], [place] [id number] Carlota Jin MD 1 [facility], [facility] [address] [place] [phone] 02/09/2025 6:45 EDT Treatment [facility] - [place] [address] [place], [place] [phone] Carlota Jin MD 1 [facility], [facility] [address] [place] [phone] 02/12/2025 6:45 EDT Treatment [facility] - [place] [address] [place], [place] [phone] Carlota Jin MD 1 [facility], [address] [phone] 02/14/2025 6:45 EDT Treatment [facility] - [place] [address] [place], [place] [address] Carlota Jin MD 1 [facility], [facility] [address] [place] [phone] 02/16/2025 6:45 EDT Treatment [facility] - [place] [address] [place], [place] [phone] Carlota Jin MD 1 [facility], [facility] [address] [place] [phone] 02/19/2025 6:45 EDT Treatment [facility] - [place] [address] [place], [place] [phone] Carlota Jin MD 1 [facility], Level [address] [place] [phone] 02/21/2025 6:45 EDT Treatment [facility] - [place] [address] [place] [address] Carlota Jin MD 1 [facility], Level [address] [place] [phone] documented as of this encounter Procedures Procedure Name Priority Date/Time Associated Diagnosis Comments POCT GLUCOSE, INTERFACED Routine 09/22/2024 10:47 EST POCT GLUCOSE, INTERFACED Routine 09/22/2024 8:33 EST HEMODIALYSIS Routine 09/22/2024 6:25 EST ESRD (end stage renal disease) ([facility]) documented in this encounter Results * (ABNORMAL) POCT GLUCOSE, INTERFACED (09/22/2024 10:47 EST) Glucose, POC 104(H) 70 - 100 mg/dL 09/22/2024 10:48 EST [facility] HN LAB POC COMMENT (GLUCOSE) Test Performed by Nursing Services 09/22/2024 10:48 EST [facility] Blood CAPILLARY BLOOD / Unknown 09/22/2024 10:47 EST 09/22/2024 10:48 EST us Carlota Jin MD POINT OF CARE TEST ORDERA BLES Final Result [facility] [address] [place] [address] * (ABNORMAL) POCT GLUCOSE, INTERFACED (09/22/2024 8:33 EST) Glucose, POC 132(H) 70 - 100 mg/dL 09/22/2024 8:34 EST [facility] HN LAB POC COMMENT (GLUCOSE) Test Performed by Nursing Services 09/22/2024 8:34 EST [facility] Blood CAPILLARY BLOOD / Unknown 09/22/2024 8:33 EST 09/22/2024 8:34 EST us Carlota Jin MD POINT OF CARE TEST ORDERA BLES Final Result [facility] [address] [place] [address] documented in this encounter Visit Diagnoses Diagnosis ESRD (end stage renal disease) ([facility] Primary End stage renal disease Hypoalbuminemia Other disorders of plasma protein metabolism Secondary hyperparathyroidism ([facility]) Secondary hyperparathyroidism (of renal origin) documented in this encounter Administered Medications Inactive Administered Medications - up to 3 most recent administrations Medication Order MAR Action Action Date Dose Rate Site calcium carbonate (TUMS) tablet 500 mg (200 mg elemental calcium) 2 Tablet 2 Tablet, oral, ONCE IN DIALYSIS, 1 dose, On Wed09/22/24 at 0645, Routine, DialysisIndications:ESRD (end stage renal disease) ([facility]),Secondary hyperparathyroidism ([facility]) Given 09/22/2024 6:29 EST 2 Tablets heparin injection 3,000 Units 3,000 Units, intravenous, ONCE IN DIALYSIS, 1 dose, On Wed09/22/24 at 0645, Routine, Dialysis, Now x1 bolus 1500 units to be given at the beginning of dialysis 500 units/hour to be given over the course of dialysis (3000 units total). Stop 1 hour prior to end of treatment. To be administered per Policy [id number].Indications:ESRD (end stage renal disease) ([facility]) Given 09/22/2024 6:46 EST 3,000 Units LiquaCel liquid protein liquid 30 mL 30 mL, oral, ONCE IN DIALYSIS, 1 dose, On Wed09/22/24 at 0645, Patient's flavor preference: either, Routine, DialysisIndications:ESRD (end stage renal disease) ([facility]),Hypoalbuminemia Given 09/22/2024 6:32 EST 30 mL loperamide (IMODIUM) capsule 4 mg 4 mg, oral, 4 TIMES DAILY PRN, Starting on Wed09/22/24 at 0626, Until Wed09/22/24 at 1448, Diarrhea, Routine Given 09/22/2024 6:30 EST 4 mg documented in this encounter Orders Dialysis Count Last Ordered Date First Orde red Date HEMODIALYSIS 1 09/22/2024 documented in this encounter Care Teams Senior Hr Manager Relationship Specialty Start Date End Date Ken Greer MD [facility] [place] [address] PCP - General 07/07/23 Kiel Powers [employer] Supervisor Nephrology 05/31/24 documented as of this encounter
--- OUTSIDE RECORDS SUMMARY | 2024-12-05 11:56 | XMS_ITS | Encounter Summary ---
Author Organization [facility] Address [address] [place] [address] Care Team Providers Care File Machine Operator Name Role Phone Ken Greer MD Primary Care Provider [phone] Kiel Powers Unavailable Unavailable Reason for Visit * Episode Based Medications (Routine) - New Request Specialty Diagnoses / Procedures Referred By Nader gardiner Referred To Contact Diagnoses ESRD (end stage renal disease) ([facility]) Carlota Jin MD [address] [place] [address], [facility] 2 [place] [address] Phone: tel: fax: [facility] [address] [place] [address] Phone: tel: fax: Referral ID Status Reason Start Date Expiration Date V isits Requested Visits Authorized [id number] New Request 03/17/2024 1 1 Encounter Details Date Type Department Care Team (Latest Contact Info) Description 09/27/2024 6:45 EST Treatment [facility] [address] [place] [id number] Carlota Jin MD [address] [place] [address], [facility] 2 [place] [address] ESRD (end stage renal disease) ([facility]) (Primary Dx); Hypoalbuminemia; Secondary hyperparathyroidism ([facility]) Social History Tobacco Use Types Packs/Day Years Used Date Smoking Tobacco: Every Day Cigarettes 1 26.1 Started: 1998 Smokeless Tobacco: Never Alcohol Use Standard Drinks/Week Comments Yes 0 (1 standard drink = 0.6 oz pur e alcohol) Socially [facility] Utilities Answer Date Recorded In the [...] were you homeless or living in a assisted (including now)? No 05/30/2024 Interpersonal Safety Answer [...] the past 12 months has th e [employer] gas, oil, or water [employer] threatened to shut off services in your [...] - Temperature - - Respiratory Rate 16 09/27/2024 0618 EST Oxygen Saturation - - Inhaled Oxygen Concentration - - Weight 78.7 kg (173 lb 8 oz) 09/27/2024 0623 EST Height - - Body Mass Index 24.89 07/20/2024 1359 EDT documented in this encounter [...] Progress Notes * Marcela Cox RN - 09/27/2024 0645 EST BS check mid tx at 0902- 101, no intervention required BS check 1048- 91, 120ml cranberry juice given per protocol. BS recheck 15 min after juice - 111, made aware upon d/c from unit documented in this encounter Miscellaneous Notes * Flowsheet Note - Marcela Cox RN - 09/27/2024 1128 EST 09/27/24 1059 Post-Hemodialysis Assessment Total Blood Processed (L) 83.91 Liters On Line Clearance: spKt/V 1.4 spKt/V Dialyzer Clearance Lightly streaked Treatment UFR (ml:kg:hr) 11.46 ml:kg:hr Final Critline Profile (%/hr) -1.65 Final Profile Profile A Critline refill Positive (H1: 36.2 H2:37.0) Fluid Removed (L) 3.7 L Post-Dialysis Scale Weight 96 kg (211 lb 10.3 oz) Wheelchair Weight 20.9 kg (46 lb 1.2 oz) Prosthesis Weight 0 kg (0 lb) Post-Treatment Weight (kg) 75.1 Treatment Weight Change (kg) 3.6 kg Day Target Weight (kg) 75.5 Post Sitting/Lying BP 188/84 Post Sitting/Lying pulse 65 Temp 36.2 ??C (97.2 ??F) Temp src Temporal Minutes Short -251 Post access assessment Bruit present: Yes Thrill Present AVF/AFG Hemostasis achieved Yes Note Patient held for 10mins with blue clamps and had no issues Orientation Alert and Oriented x3 Yes Time Yes Place Yes Person Yes Cooperative Yes Disoriented No Discharge Ambulation Methods Departs via w/c;With patient transport Wrap up items Patient Response to Treatment Tolerated tx well. Removed 3.7L UF goal without difficulty. Comments No issues during tx, no concerns voiced post tx. documented in this encounter Plan of Treatment Upcoming Encounters Date Type Department Care Team (Late st Contact Info) Description 12/06/2024 6:45 EST Treatment [facility] [address] [place], [place] [phone] Carlota iJn MD [address] [place] [address], [facility] 2 [place] [phone] 12/08/2024 6:45 EST Treatment [facility] [address] [place], [place] [phone] Carlota Jin MD [address] [place] [address] 2 [place] [phone] 12/11/2024 6:45 EST Treatment [facility] [address] [place], [place] [phone] Carlota Jin MD [address] [place] [address] 2 [place] [phone] 12/13/2024 6:45 EST Treatment [facility] [address] [place], [place] [phone] Carlota Jin MD 1 [facility] Level 2 [place] [phone] 12/15/2024 6:45 EST Treatment [facility] [address] [place], [place] [id number] Carlota Jin MD 1 [facility], [facility] 2 [place] [phone] 12/18/2024 6:45 EST Treatment [facility] [address] [place], [place] [id number] Carlota Jin MD 1 [facility], [facility] 2 [place] [phone] 12/20/2024 6:45 EST Treatment [facility] [address] [place] [address] Carlota Jin MD 1 [facility], [facility] 2 [place] [phone] 12/22/2024 6:45 EST Treatment [facility] [address] [place], [place] [phone] Carlota Jin MD 1 [facility], [facility] 2 [place] [phone] 12/25/2024 6:45 EST Treatment [facility] [address] [place], [place] [phone] Carlota Jin MD 1 [facility], [facility] 2 [place] [phone] 12/27/2024 6:45 EST Treatment [facility] [address] [place], [place] [phone] Carlota Jin MD 1 [facility], [facility] 2 [place] [phone] 12/29/2024 6:45 EST Treatment [facility] [address] [place], [place] [id number] Carlota Jin MD 1 [facility], [facility] 2 [place] [phone] 01/01/2025 6:45 EDT Treatment [facility] [address] [place] [address] Carlota Jin MD 1 [facility], [facility] 2 [place] [phone] 01/03/2025 6:45 EDT Treatment [facility] [address] [place], [place] [phone] Carlota Jin MD 1 [facility], [facility] 2 [place] [phone] 01/05/2025 6:45 EDT Treatment [facility] [address] [place], [place] [phone] Carlota Jin MD 1 [facility], [facility] 2 [place] [phone] 01/08/2025 6:45 EDT Treatment [facility] [address] [place], [place] [phone] Carlota Jin MD 1 [facility], [facility] 2 [place] [phone] 01/10/2025 6:45 EDT Treatment [facility] [address] [place], [place] [phone] Carlota Jin MD 1 [facility], [facility] 2 [place] [phone] 01/12/2025 6:45 EDT Treatment [facility] [address] [place], [place] [phone] Carloat Jin MD 1 [facility], [facility] 2 [place] [phone] 01/15/2025 6:45 EDT Treatment [facility] [address] [place], [place] [phone] Carlota Jin MD 1 [facility], [facility] 2 [place] [phone] 01/17/2025 6:45 EDT Treatment [facility] [address] [place], [place] [phone] Carlota Jin MD 1 [facility], [facility] 2 [place] [phone] 01/19/2025 6:45 EDT Treatment [facility] [address] [place], [place] [phone] Carlota Jin MD 1 [facility], [facility] 2 [place] [phone] 01/22/2025 6:45 EDT Treatment [facility] [address] [place], [place] [phone] Carlota Jin MD 1 [facility], [facility] 2 [place] [phone] 01/24/2025 6:45 EDT Treatment [facility] [address] [place], [place] [phone] Carlota Jin MD 1 [facility], [facility] 2 [place] [phone] 01/26/2025 6:45 EDT Treatment [facility] [address] [place], [place] [phone] Carlota Jin MD 1 [facility], [facility] 2 [place] [phone] 01/29/2025 6:45 EDT Treatment [facility] [address] [place], [place] [address] Carlota Jin MD 1 [facility], [facility] 2 [place] [phone] 01/31/2025 6:45 EDT Treatment [facility] [address] [place], [place] [phone] Carlota Jin MD 1 [facility], [facility] 2 [place] [phone] 02/02/2025 6:45 EDT Treatment [facility] [address] [place], [place] [id number] Carlota Jin MD 1 [facility], [facility] 2 [place] [phone] 02/05/2025 6:45 EDT Treatment [facility] [address] [place], [place] [address] [phone] Carlota Jin MD 1 [facility], [facility] 2 [place] [phone] 02/07/2025 6:45 EDT Treatment [facility] [address] [place], [place] [id number] Carlota Jin MD 1 [facility], [address] [phone] 02/09/2025 6:45 EDT Treatment [facility] [address] [place], [place] [phone] Carlota Jin MD 1 [facility], [address] [phone] 02/12/2025 6:45 EDT Treatment [facility] [address] [place], [place] [phone] Carlota Jin MD 1 [facility], [address] [phone] 02/14/2025 6:45 EDT Treatment [facility] [address] [place], [place] [phone] Carlota Jin MD 1 [facility], [facility] 2 [place] [phone] 02/16/2025 6:45 EDT Treatment [facility] [address] [place], [place] [phone] Carlota Jin MD 1 [facility], Level [address] [place] [phone] 02/19/2025 6:45 EDT Treatment [facility] [address] [place], [place] [phone] Carlota Jin MD 1 [facility], [facility] 2 [place] [phone] 02/21/2025 6:45 EDT Treatment [facility] [address] [place], [place] [phone] Carlota Jin MD 1 [facility], [facility] 2 [place] [phone] documented as of this encounter Procedures Procedure Name Priority Date/Time Associated Diagnosis Comments POCT GLUCOSE, INTERFACED Routine 09/27/2024 11:11 EST POCT GLUCOSE, INTERFACED Routine 09/27/2024 10:48 EST POCT GLUCOSE, INTERFACED Routine 09/27/2024 9:02 EST COMPLETE BLOOD COUNT Routine 09/27/2024 6:41 EST ESRD (end stage renal disease) ([facility]) HEMODIALYSIS Routine 09/27/2024 6:18 EST ESRD (end stage renal disease) ([facility]) documented in this encounter Results * (ABNORMAL) POCT GLUCOSE, INTERFACED (09/27/2024 11:11 EST) Glucose, POC 111(H) 70 - 100 mg/dL 09/28/2024 7:50 EST [facility] HN LAB POC COMMENT (GLUCOSE) Test Performed by Nursing Services 09/28/2024 7:50 EST [facility] Blood CAPILLARY BLOOD / Unknown 09/27/2024 11:11 EST 09/28/2024 7:50 EST us Carlota Jin MD POINT OF CARE TEST ORDERA BLES Final Result Performing Organization Address City/[facility]/ZIP Co de Phone Number [facility] [address] [place] [address] * POCT GLUCOSE, INTERFACED (09/27/2024 10:48 EST) Glucose, POC 91 70 - 100 mg/dL 09/27/2024 10:49 EST [facility] HN LAB POC COMMENT (GLUCOSE) Test Performed by Nursing Services 09/27/2024 10:49 EST [facility] Blood CAPILLARY BLOOD / Unknown 09/27/2024 10:48 EST 09/27/2024 10:49 EST us Carlota Jin MD POINT OF CARE TEST ORDERA BLES Final Result Performing Organization Address City/[facility]/ZIP Co de Phone Number [facility] [address] [place] [phone] * (ABNORMAL) POCT GLUCOSE, INTERFACED (09/27/2024 9:02 EST) Glucose, POC 101(H) 70 - 100 mg/dL 09/27/2024 9:03 EST [facility] HN LAB POC COMMENT (GLUCOSE) Test Performed by Nursing Services 09/27/2024 9:03 EST [facility] Blood CAPILLARY BLOOD / Unknown 09/27/2024 9:02 EST 09/27/2024 9:03 EST us Carlota Jin MD POINT OF CARE TEST ORDERA BLES Final Result [facility] [address] [place] [address] * (ABNORMAL) COMPLETE BLOOD COUNT (09/27/2024 6:41 EST) WBC 8.87 4.00 - 10.40 K/cmm 09/27/2024 23:08 [facility] RBC 4.12(L) 4.36 - 5.78 M/cmm 09/27/2024 23:08 [facility] Hemoglobin 12.2(L) 13.8 - 17.3 g/dL 09/27/2024 23:08 [facility] HCT 37.6(L) 39.5 - 50.2 % 09/27/2024 23:08 [facility] MCV 91 81 - 95 fL 09/27/2024 23:08 [facility] MCH 29.6 27.6 - 33.0 pg 09/27/2024 23:08 [facility] MCHC 32.4(L) 32.8 - 36.4 g/dL 09/27/2024 23:08 [facility] RDW-CV 16.4(H) <14.2 % 09/27/2024 23:08 [facility] RDW-SD 55.2(H) <46.0 fl 09/27/2024 23:08 [facility] PLT 227 141 - 377 K/cmm 09/27/2024 23:08 [facility] MPV 12.8(H) 9.5 - 12.7 fL 09/27/2024 23:08 [facility] Blood VENOUS BLOOD / Unknown Venipuncture / Unknown 09/27/2024 6:41 EST 09/27/2024 6:41 EST Carlota Jin MD HEMATOLOGY & PF4 ORDERABL ES Final Result [facility] [address] [place] [address] documented in this encounter Visit Diagnoses Diagnosis ESRD (end stage renal disease) ([facility])- Primary End stage renal disease Hypoalbuminemia Other disorders of plasma protein metabolism Secondary hyperparathyroidism ([facility]) Secondary hyperparathyroidism (of renal origin) documented in this encounter Administered Medications Inactive Administered Medications - up to 3 most recent administrations Medication Order MAR Action Action Date Dose Rate Site acetaminophen (TYLENOL) tablet 650 mg 650 mg, oral, EVERY 4 HOURS PRN, Starting on Wed09/27/24 at 1052, Until Wed09/27/24 at 1328, Pain, Routine, DialysisIndications:ESRD (end stage renal disease) ([facility]) Given 09/27/2024 10:54 EST 650 mg calcium carbonate (TUMS) tablet 500 mg (200 mg elemental calcium) 2 Tablet 2 Tablet, oral, ONCE IN DIALYSIS, 1 dose, On Wed09/27/24 at 0645, Routine, DialysisIndications:ESRD (end stage renal disease) ([facility]),Secondary hyperparathyroidism ([facility]) Given 09/27/2024 7:09 EST 2 Tablets heparin injection 3,000 Units 3,000 Units, intravenous, ONCE IN DIALYSIS, 1 dose, On Wed09/27/24 at 0645, Routine, Dialysis, Now x1 bolus 1500 units to be given at the beginning of dialysis 500 units/hour to be given over the course of dialysis (3000 units total). Stop 1 hour prior to end of treatment. To be administered per Policy [id number].Indications:ESRD (end stage renal disease) ([facility]) Given 09/27/2024 7:09 EST 3,000 Units LiquaCel liquid protein liquid 30 mL 30 mL, oral, ONCE IN DIALYSIS, 1 dose, On Wed09/27/24 at 0645, Patient's flavor preference: either, Routine, DialysisIndications:ESRD (end stage renal disease) ([facility]),Hypoalbuminemia Given 09/27/2024 7:09 EST 30 mL documented in this encounter Orders Dialysis Count Last Ordered Date First Orde red Date HEMODIALYSIS 1 09/27/2024 documented in this encounter Care Teams File Machine Operator Relationship Specialty Start Date End Date Ken Greer MD [facility] [place] [address] PCP - General 07/07/23 Kiel Powers Grey Roll Worker Nephrology 05/31/24 documented as of this encounter
--- OUTSIDE RECORDS SUMMARY | 2024-12-05 11:56 | XMS_ITS | Encounter Summary ---
Author Organization [facility] Address [address] [place] [address] Care Team Providers Care Web Applications Architect Name Role Phone Ken Greer MD Primary Care Provider [phone] Kiel Powers Unavailable Unavailable Encounter Details Date Type Department Care Team (Late st Contact Info) Description 10/02/2024 Documentation Visit [facility] [address] [place] [address] Shelley Eden, RD [address] [place] [address] Social History Tobacco Use Types Packs/Day Years Used Date Smoking Tobacco: Every Day Cigarettes 1 26.1 Started: 1998 Smokeless Tobacco: Never Alcohol Use Standard Drinks/Week Comments Yes 0 (1 standard drink = 0.6 oz pur e alcohol) Socially [facility] Utilities Answer Date Recorded In the past 12 months has e electric, gas, oil, or water [employer] threatened to shut off services in your [...] in the past [address] [facility], were you homeless or [...] your living situation today? 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 Spoke mostly with his about his critically high k level and continued high phos level. Xander has not been taking his kaexylate at all - discussed with Xander importance of this medication and he got a bit angry said heis sick of it all and ready to be done. He says I take too many pills already. noted he hasbeen consuming more potato . 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 said they were not told to modify texture of his diet at all. She does not that he tends to have liquids come back up but no issues with food. Appetite: Very good Appetite scale (0-10): No number given Gastrointestinal: ? Issues with swallow - pt seeing MD about this - pt also with diarrhea at times Skin integrity: S/p amputations -had a recent urn on his leg Diabetes: Yes all over - said having more lows at this time Diabetes Management: Self Monitoring of Blood Glucose on insulin Diet Recall: B omelette with ham cheese and toast L burger and fires from [employer] D stuffed mushrooms, meatloaf and potato Fluid: Water, Coffee, Milk, Juice, tea Alcohol: will need to f/u Prescribed Weight:75.5 Post-Dialytic Weight: 75.2 09/22/2024 10:53 09/25/2024 10:51 09/27/2024 10:59 09/29/2024 10:51 10/02/2024 10:48 - ( Kg ) 75.3 75.9 75.1 75.4 75.2 UFR: 09/22/2024 10:53 09/25/2024 10:51 09/27/2024 10:59 09/29/2024 10:51 10/02/2024 10:48 - mL/Kg/hr 11.79 ml:kg:hr 10.78 ml:kg:hr 11.46 ml:kg:hr 9.19 ml:kg:hr 8.24 ml:kg:hr URR: 68.966 (Calculated from:; BUN Pre-Dialysis: 87 mg/dL at 09/25/2024 11:14; BUN Post-Dialysis: 27mg/dL at 09/25/2024 11:14) Kt/V: 1.41 (Calculated from:; BUN Pre-Dialysis: 87 mg/dL at 09/25/2024 11:14; BUN Post-Dialysis: 27 mg/dL at 09/25/2024 11:14; Pre-Treatment Weight (kg): 79.2 at 09/25/2024 6:31; Post-Treatment Weight (kg): 75.9 at 09/25/2024 10:51; Duration of Treatment (minutes): 242 minutes at 09/25/2024 10:51) PCR: 1.47 (Calculated from:; BUN Pre-Dialysis: 87 mg/dL at 09/25/2024 11:14; BUN Post-Dialysis: 27 mg/dL at 09/25/2024 11:14; Pre-Treatment Weight (kg): 79.2 at 09/25/2024 6:31; Post-Treatment Weight (kg): 75.9 at 09/25/2024 10:51; Duration of Treatment (minutes): 242 minutes at 09/25/2024 10:51; Age: 58 years) Pertinent Labs include: Lab Results Component Value Date LABALBU 3.3 (L) 09/25/2024 LABALBU 3.1 (L) 08/28/2024 Lab Results Component Value Date BUNPRE 87 (H) 09/25/2024 BUNPRE 87 (H) 09/25/2024 NA 135 (L) 09/25/2024 NA 137 08/28/2024 K 8.0 (H) 09/25/2024 K 5.8 (H) 08/28/2024 CL 101 09/25/2024 CL 104 08/28/2024 CO2 21 (L) 09/25/2024 CO2 22 08/28/2024 MG 2.2 09/25/2024 MG 2.3 08/28/2024 CALCIUM 7.9 (L) 09/25/2024 CALCIUM 8.0 (L) 08/28/2024 CALCCA 8.5 (L) 09/25/2024 CALCCA 8.7 (L) 08/28/2024 PHOS 11.2 (H) 09/25/2024 PHOS 9.9 (H) 08/28/2024 ALKPHOS 80 09/25/2024 ALKPHOS 91 08/28/2024 PTH 712 (H) 07/31/2024 PTH 250 (H) 05/01/2024 PLT 227 09/27/2024 PLT 241 09/20/2024 MCV 91 09/27/2024 MCV 91 09/20/2024 [id number] 607 10/27/2023 [id number] 11/16/2022 VITD 21 (L) 10/27/2023 VITD 27 (L) 11/16/2022 FOLATE >24.0 10/27/2023 FOLATE 17.3 11/16/2022 HGBA1C 11.6 (H) 11/07/2023 Protein/calorie supplements: liqaucel on HD days protein powder at home (orgain)- recmd to restart - have asked this for several months Renal/other vitamins: cholecalciferol (Vitamin D3) - 2000 IU daily Started renal vitamin Herbal/OTC supplements: None reported CKD/MBD medications: sevelamer hydrochloride - recmd 3 at meals 2 tums at HD Recmd tums with snacks Other Medications Relevant to Nutrition: atorvastatin - 40 mg sevelamer carbonate - 800 mg sodium polystyrene insulin aspart U-100 - 100 unit/mL (3 mL) insulin glargine - 100 unit/mL (3 mL) insulin lispro - 100 unit/mL Assessment Nutrition status / Adequacy of intake: Xander has been eating -- encouraged HBV protein -will cont liquacel at HD. Wt has declined about 12 kg this year r/t recent amputations however wt has been stablethese last 3 months. At his current wt his BMI is 28 adjusted for amps Weight/Volume status: fluid gains often high 2.3-3.4 UFR 8-11 Electrolytes: K-high - pt has script for kayexalate but not taking - have discussed at length with pt and and provided extensive potassium education - encouraged consistency with kaexylate Na low suspected r/t high fluid gains Mg WNL Mineral Bone Disease: Ca -WNL Phos chronically high - on 2 tums at HD, Renvela (recmd 3) TID with meals - unclear if he is taking PTH WNL - no calcitriol Vitamin Status: B12 and folate WNL - on renal vitamin - D25 level low -on 2000 IU D3 Diabetes management: on insulin - per some high levels Education Materials provided: Nutrition Lab Report-given monthly Potassium education- given again on 03/10 Phosphorus education- given again on 03/10 Milk alternatives and low phos cheese list given 04/07 Fluid education - April 2023 Potassium Education [...] 3 at meals Cont liquacel at HD restart protein powder at home -reinforced high protein needs Cont vitamin D3, and renal vitamin 4. Revd fluid management tips and encouraged to avoid salt - encouraged to avoid soup 5. Discussed high k level and revd diet - encouraged to take kayexalate as prescribed Shelley Eden RD, CD documented in this encounter Plan of Treatment Upcoming Encounters Date Type Department Care Team (Late st Contact Info) Description 12/06/2024 6:45 EST Treatment [facility] [address] [place], [place] [id number] Carlota Jin MD 1 [facility], [facility] [address] [place] [phone] 12/08/2024 6:45 EST Treatment [facility] [address] [place] [id number] Carlota Jin MD 1 [facility], [facility] [address] [place] [phone] 12/11/2024 6:45 EST Treatment [facility] [address] [place] [id number] Carlota Jin MD 1 [facility], [facility] [address] [place] [phone] 12/13/2024 6:45 EST Treatment [facility] [place] [address] [place], [place] [id number] Carlota Jin MD 1 [facility] [address] [place] [phone] 12/15/2024 6:45 EST Treatment [facility] [place] [address] [place] [address] Carlota Jin MD 1 [facility], [facility] [address] [place] [phone] 12/18/2024 6:45 EST Treatment [facility] [place] [address] [place] [address] Carlota Jin MD 1 [facility], [facility] [address] [place] [phone] 12/20/2024 6:45 EST Treatment [facility] [place] [address] [place] [address] Carlota Jin MD 1 [facility], [facility] [address] [place] [phone] 12/22/2024 6:45 EST Treatment [facility] [place] [address] [place], [place] [id number] Carlota Jin MD 1 [facility], [facility] [address] [place] [phone] 12/25/2024 6:45 EST Treatment [facility] [place] [address] [place], [place] [address] Carlota Jin MD 1 [facility], [facility] [address] [place] [phone] 12/27/2024 6:45 EST Treatment [facility] [place] [address] [place], [place] [address] [phone] Carlota Jin MD 1 [facility], [address] [phone] 12/29/2024 6:45 EST Treatment [facility] [place] [address] [place], [place] [id number] Carlota Jin MD 1 [facility], [address] [phone] 01/01/2025 6:45 EDT Treatment [facility] [place] [address] [place], [place] [id number] Carlota Jin MD 1 [facility], [address] [phone] 01/03/2025 6:45 EDT Treatment [facility] [place] [address] [place], [place] [id number] Carlota Jin MD 1 [facility], [address] [phone] 01/05/2025 6:45 EDT Treatment [facility] [place] [address] [place], [place] [id number] Carlota Jin MD 1 [facility], [facility] [address] [place] [phone] 01/08/2025 6:45 EDT Treatment [facility] [place] [address] [place], [place] [id number] Carlota Jin MD 1 [facility], [facility] [address] [place] [phone] 01/10/2025 6:45 EDT Treatment [facility] [place] [address] [place], [place] [id number] Carlota Jin MD 1 [facility], [facility] [address] [place] [phone] 01/12/2025 6:45 EDT Treatment [facility] [place] [address] [place] [address] Carlota Jin MD 1 [facility], [facility] [address] [place] [phone] 01/15/2025 6:45 EDT Treatment [facility] [place] [address] [place], [place] [id number] Carlota Jin MD 1 [facility], [facility] [address] [place] [phone] 01/17/2025 6:45 EDT Treatment [facility] [place] [address] [place], [place] [id number] Carlota Jin MD 1 [facility], [facility] [address] [place] [phone] 01/19/2025 6:45 EDT Treatment [facility] [place] [address] [place], [place] [address] Carlota Jin MD 1 [facility], [facility] [address] [place] [phone] 01/22/2025 6:45 EDT Treatment [facility] [place] [address] [place], [place] [id number] Carlota Jin MD 1 [facility], [facility] [address] [place] [phone] 01/24/2025 6:45 EDT Treatment [facility] [place] [address] [place], [place] [id number] Carlota Jin MD 1 [facility], [facility] [address] [place] [phone] 01/26/2025 6:45 EDT Treatment [facility] [place] [address] [place], [place] [id number] Carlota Jin MD 1 [facility], [facility] [address] [place] [phone] 01/29/2025 6:45 EDT Treatment [facility] [place] [address] [place], [place] [id number] Carlota Jin MD 1 [facility], [facility] [address] [place] [phone] 01/31/2025 6:45 EDT Treatment [facility] [place] [address] [place], [place] [id number] Carlota Jin MD 1 [facility], [facility] [address] [place] [phone] 02/02/2025 6:45 EDT Treatment [facility] [place] [address] [place], [place] [address] Carlota Jin MD 1 [facility], [facility] [address] [place] [phone] 02/05/2025 6:45 EDT Treatment [facility] [place] [address] [place], [place] [id number] Carlota Jin MD 1 [facility], [facility] [address] [place] [phone] 02/07/2025 6:45 EDT Treatment [facility] [place] [address] [place], [place] [id number] Carlota Jin MD 1 [facility], [facility] [address] [place] [phone] 02/09/2025 6:45 EDT Treatment [facility] [place] [address] [place] [address] Carlota Jin MD 1 [facility], [facility] [address] [place] [phone] 02/12/2025 6:45 EDT Treatment [facility] [place] [address] [place], [place] [id number] Carlota Jin MD 1 [facility], [facility] [address] [place] [phone] 02/14/2025 6:45 EDT Treatment [facility] [place] [address] [place], [place] [id number] Carlota Jin MD 1 [facility], [facility] [address] [place] [phone] 02/16/2025 6:45 EDT Treatment [facility] [place] [address] [place], [place] [id number] Carlota Jin MD [address] [phone] 02/19/2025 6:45 EDT Treatment [facility] [place] [address] [place], [place] [id number] Carlota Jin MD 1 [facility], [address] [phone] 02/21/2025 6:45 EDT Treatment [facility] [place] [address] [place], [place] [id number] Carlota Jin MD [address] [place] [phone] documented as of this encounter Visit Diagnoses Not on filedocumented in this encounter Care Teams Web Applications Architect Relationship Specialty Start Date End Date Ken Greer MD [address] [place] [address] PCP - General 07/07/23 Kiel Powers [employer] Nephrology 05/31/24 documented as of this encounter
--- OUTSIDE RECORDS SUMMARY | 2024-12-05 11:56 | XMS_ITS | Encounter Summary ---
Author Organization [facility] Address [address] [place] [address] Care Team Providers Care Teenage Babysitter Name Role Phone Ken Greer MD Primary Care Provider [phone] Kiel Powers Unavailable Unavailable Reason for Visit * Episode Based Medications (Routine) - New Request Specialty Diagnoses / Procedures Referred By Nader gardiner Referred To Contact Diagnoses ESRD (end stage renal disease) ([facility]) Carlota Jin MD [address] [place] [address], [facility] [address] [place] [address] Phone: tel: fax: [facility] [address] [place] [address] Phone: tel: fax: Referral ID Status Reason Start Date Expiration Date V isits Requested Visits Authorized [id number] New Request 03/17/2024 1 1 Encounter Details Date Type Department Care Team (Latest Contact Info) Description 09/29/2024 6:45 EST Treatment [facility] [address] [place] [id number] Carlota Jin MD [address] [place] [address], [facility] [address] [place] [phone] ESRD (end stage renal disease) ([facility]) (Primary Dx); Hypoalbuminemia; [facility] Social History Tobacco Use Types Packs/Day Years Used Date Smoking Tobacco: Every Day Cigarettes 1 26.1 Started: 1998 Smokeless Tobacco: Never Alcohol Use Standard Drinks/Week Comments Yes 0 (1 standard drink = 0.6 oz pur e alcohol) Socially [facility] Utilities Answer Date Recorded In the past [...] were you homeless or living in a long term (including now)? No 05/30/2024 Interpersonal Safety Answer [...] the past 12 months has th e [employer], gas, oil, or water [employer] threatened to shut off services in your [...] - Temperature - - Respiratory Rate 16 09/29/2024 0627 EST Oxygen Saturation - - Inhaled Oxygen Concentration - - Weight 78.3 kg (172 lb 9.9 oz) 09/29/[address] Height - - Body Mass Index 24.77 07/20/2024 1359 EDT documented in this encounter [...] Progress Notes * Marcela Cox RN - 09/29/2024 0645 EST BS check at 1048- 91, glucose gel tube given 15 min recheck - 98, recheck at 1 hr post intervention per protocol 1 hr recheck 100 documented in this encounter Miscellaneous Notes * Flowsheet Note - Marcela Cox RN - 09/29/2024 1241 EST 09/29/24 1051 Post-Hemodialysis Assessment Total Blood Processed (L) 81.54 Liters On Line Clearance: spKt/V 1.38 spKt/V Dialyzer Clearance Lightly streaked Treatment UFR (ml:kg:hr) 9.19 ml:kg:hr Final Critline Profile (%/hr) -0.45 Final Profile Profile A Critline refill Negative (34.6/34.7) Fluid Removed (L) 3.04 L Post-Dialysis Scale Weight 95.5 kg (210 lb 8.6 oz) Wheelchair Weight 20.1 kg (44 lb 5 oz) Prosthesis Weight 0 kg (0 lb) Post-Treatment Weight (kg) 75.4 Treatment Weight Change (kg) 2.9 kg Day Target Weight (kg) 75.5 Post Sitting/Lying BP 167/86 Post Sitting/Lying pulse 63 Temp 36.2 ??C (97.2 ??F) Temp src Temporal Minutes Short -251 Post access assessment AVF/AFG Hemostasis achieved Yes Note pt held sites for 10 min with blue clamps Orientation Alert and Oriented x3 Yes Time Yes Place Yes Person Yes Cooperative Yes Disoriented No Discharge Ambulation Methods Departs via w/c Wrap up items Patient Response to Treatment Tolerated tx well. Removed 3L UF goal without difficulty. Comments no concerns voiced post tx. documented in this encounter Plan of Treatment Upcoming Encounters Date Type Department Care Team (Late st Contact Info) Description 12/06/2024 6:45 EST Treatment [facility] [address] [place], [place] [phone] Carlota Jin MD [address] [place] [address], [facility] [address] [place] [phone] 12/08/2024 6:45 EST Treatment [facility] [address] [place], [place] [phone] Carlota Jin MD [address] [place] [phone] 12/11/2024 6:45 EST Treatment [facility] [address] [place], [place] [phone] Carlota Jin MD [address] [place] [address], [facility] [address] [place] [phone] 12/13/2024 6:45 EST [facility] [address] [place], [place] [phone] Carlota Jin MD [address] [place] [address], [facility] [address] [place] [phone] 12/15/2024 6:45 EST Treatment [facility] [address] [place], [place] [phone] Carlota Jin MD 1 [facility], [facility] [address] [place] [phone] 12/18/2024 6:45 EST Treatment [facility] [address] [place], [place] [phone] Carlota Jin MD 1 [facility], [facility] [address] [place] [phone] 12/20/2024 6:45 EST Treatment [facility] [address] [place], [place] [phone] Carlota Jin MD 1 [facility], [facility] [address] [place] [phone] 12/22/2024 6:45 EST Treatment [facility] [address] [place], [place] [phone] Carlota Jin MD 1 [facility], [facility] [address] [place] [phone] 12/25/2024 6:45 EST Treatment [facility] [address] [place], [place] [phone] Carlota Jin MD 1 [facility], [facility] [address] [place] [phone] 12/27/2024 6:45 EST Treatment [facility] [address] [place], [place] [phone] Carlota Jin MD 1 [facility], [facility] [address] [place] [phone] 12/29/2024 6:45 EST Treatment [facility] [address] [place], [place] [phone] Carlota Jin MD 1 [facility], [facility] [address] [place] [phone] 01/01/2025 6:45 EDT Treatment [facility] [address] [place], [place] [phone] Carlota Jin MD 1 [facility], [address] [phone] 01/03/2025 6:45 EDT Treatment [facility] [address] [place], [place] [phone] Carlota Jin MD 1 [facility], [address] [phone] 01/05/2025 6:45 EDT Treatment [facility] [address] [place] [address] Carlota Jin MD 1 [facility], [facility] [address] [place] [phone] 01/08/2025 6:45 EDT Treatment [facility] [address] [place], [place] [phone] Carlota Jin MD 1 [facility], [facility] [address] [place] [phone] 01/10/2025 6:45 EDT Treatment [facility] [address] [place], [place] [address] Carlota Jin MD 1 [facility], [facility] [address] [place] [phone] 01/12/2025 6:45 EDT Treatment [facility] [address] [place], [place] [phone] Carlota Jin MD 1 [facility], [facility] [address] [place] [phone] 01/15/2025 6:45 EDT Treatment [facility] [address] [place], [place] [id number] Carlota Jin MD 1 [facility], [address] [phone] 01/17/2025 6:45 EDT Treatment [facility] [address] [place], [place] [address] Carlota Jin MD 1 [facility], [facility] [address] [place] [phone] 01/19/2025 6:45 EDT Treatment [facility] [address] [place], [place] [phone] Carlota Jin MD 1 [facility], [facility] [address] [place] [phone] 01/22/2025 6:45 EDT Treatment [facility] [address] [place], [place] [address] Carlota Jin MD 1 [facility], [address] [phone] 01/24/2025 6:45 EDT Treatment [facility] [address] [place] [address] Carlota Jin MD 1 [facility], [address] [phone] 01/26/2025 6:45 EDT Treatment [facility] [address] [place], [place] [address] Carlota Jin MD 1 [facility], [address] [phone] 01/29/2025 6:45 EDT Treatment [facility] [address] [place] [address] Carlota Jin MD 1 [facility], [address] [phone] 01/31/2025 6:45 EDT Treatment [facility] [address] [place], [place] [phone] Carlota Jin MD [address] [phone] 02/02/2025 6:45 EDT Treatment [facility] [address] [place], [place] [phone] Carlota Jin MD 1 [facility], [address] [phone] 02/05/2025 6:45 EDT Treatment [facility] [address] [place], [place] [phone] Carlota Jin MD 1 [facility], [facility] [address] [place] [phone] 02/07/2025 6:45 EDT Treatment [facility] [address] [place], [place] [phone] Carlota Jin MD 1 [facility], [address] [phone] 02/09/2025 6:45 EDT Treatment [facility] [address] [place], [place] [phone] Carlota Jin MD 1 [facility], [facility] [address] [place] [phone] 02/12/2025 6:45 EDT Treatment [facility] [address] [place], [place] [phone] Carlota Jin MD 1 [facility], [facility] [address] [place] [phone] 02/14/2025 6:45 EDT Treatment [facility] [address] [place], [place] [phone] Carlota Jin MD 1 [facility], [facility] [address] [place] [phone] 02/16/2025 6:45 EDT Treatment [facility] [address] [place], [place] [phone] Carlota Jin MD 1 [facility], [facility] [address] [place] [phone] 02/19/2025 6:45 EDT Treatment [facility] [address] [place], [place] [phone] Carlota Jin MD 1 [facility], [facility] [address] [place] [phone] 02/21/2025 6:45 EDT Treatment [facility] [address] [place], [place] [phone] Carlota Jin MD 1 [facility], [facility] [address] [place] [phone] documented as of this encounter Procedures Procedure Name Priority Date/Time Associated Diagnosis Comments POCT GLUCOSE, INTERFACED Routine 09/29/2024 10:24 EST POCT GLUCOSE, INTERFACED Routine 09/29/2024 9:36 EST POCT GLUCOSE, INTERFACED Routine 09/29/2024 9:14 EST HEMODIALYSIS Routine 09/29/2024 6:27 EST ESRD (end stage renal disease) ([facility]) documented in this encounter Results * POCT GLUCOSE, INTERFACED (09/29/2024 10:24 EST) Glucose, POC 100 70 - 100 mg/dL 09/29/2024 10:26 EST [facility] HN LAB POC COMMENT (GLUCOSE) Test Performed by Nursing Services 09/29/2024 10:26 EST [facility] Blood CAPILLARY BLOOD / Unknown 09/29/2024 10:24 EST 09/29/2024 10:26 EST us Carlota Jin MD POINT OF CARE TEST ORDERA BLES Final Result Performing Organization Address City/[facility]/ZIP Co de Phone Number [facility] [address] [place], [place] [phone] * POCT GLUCOSE, INTERFACED (09/29/2024 9:36 EST) Glucose, POC 98 70 - 100 mg/dL 10/02/2024 11:05 EST [facility] HN LAB POC COMMENT (GLUCOSE) Test Performed by Nursing Services 10/02/2024 11:05 EST [facility] Blood CAPILLARY BLOOD / Unknown 09/29/2024 9:36 EST 10/02/2024 11:05 EST us Carlota Jin MD POINT OF CARE TEST ORDERA BLES Final Result Performing Organization Address [facility]/ZIP Co de Phone Number [facility] [address] [place] [address] * POCT GLUCOSE, INTERFACED (09/29/2024 9:14 EST) Glucose, POC 90 70 - 100 mg/dL 10/02/2024 11:05 EST [facility] HN LAB POC COMMENT (GLUCOSE) Test Performed by Nursing Services 10/02/2024 11:05 EST [facility] Blood CAPILLARY BLOOD / Unknown 09/29/2024 9:14 EST 10/02/2024 11:05 EST us Carlota Jin MD POINT OF CARE TEST ORDERA BLES Final Result Performing Organization Address [facility]/ZIP Co de Phone Number [facility] [address] [place] [address] documented in this encounter Visit Diagnoses Diagnosis ESRD (end stage renal disease) ([facility])- Primary End stage renal disease Hypoalbuminemia Other disorders of plasma protein metabolism Secondary hyperparathyroidism ([facility]) Secondary hyperparathyroidism (of renal origin) documented in this encounter Administered Medications Inactive Administered Medications - up to 3 most recent administrations Medication Order MAR Action Action Date Dose Rate Site acetaminophen (TYLENOL) tablet 650 mg 650 mg, oral, EVERY 4 HOURS PRN, Starting on Wed09/29/24 at 0920, Until Wed09/29/24 at 1441, Pain, Routine, DialysisIndications:ESRD (end stage renal disease) ([facility]) Given 09/29/2024 9:20 EST 650 mg calcium carbonate (TUMS) tablet 500 mg (200 mg elemental calcium) 2 Tablet 2 Tablet, oral, ONCE IN DIALYSIS, 1 dose, On Wed09/29/24 at 0645, Routine, DialysisIndications:ESRD (end stage renal disease) ([facility]),Secondary hyperparathyroidism ([facility]) Given 09/29/2024 6:36 EST 2 Tablets heparin injection 3,000 Units 3,000 Units, intravenous, ONCE IN DIALYSIS, 1 dose, On Wed09/29/24 at 0645, Routine, Dialysis, Now x1 bolus 1500 units to be given at the beginning of dialysis 500 units/hour to be given over the course of dialysis (3000 units total). Stop 1 hour prior to end of treatment. To be administered per Policy [id number].Indications:ESRD (end stage renal disease) ([facility]) Given 09/29/2024 6:59 EST 3,000 Units LiquaCel liquid protein liquid 30 mL 30 mL, oral, ONCE IN DIALYSIS, 1 dose, On Wed09/29/24 at 0645, Patient's flavor preference: either, Routine, DialysisIndications:ESRD (end stage renal disease) ([facility]),Hypoalbuminemia Given 09/29/2024 6:36 EST 30 mL documented in this encounter Orders Dialysis Count Last Ordered Date First Orde red Date HEMODIALYSIS 1 09/29/2024 documented in this encounter Care Teams Teenage Babysitter Relationship Specialty Start Date End Date Ken Greer MD [address] [place] [address] PCP - General 07/07/23 Kiel Powers Vending Machine Operator Nephrology 05/31/24 documented as of this encounter
--- OUTSIDE RECORDS SUMMARY | 2024-12-05 11:56 | XMS_ITS | Encounter Summary ---
Author Organization [facility] Address [address] [place] [address] Care Team Providers Care Warehouse Receiving Clerk Name Role Phone Ken Greer MD Primary Care Provider [phone] Kiel Powers Unavailable Unavailable Reason for Visit * Episode Based Medications (Routine) - New Request Specialty Diagnoses / Procedures Referred By Nader gardiner Referred To Contact Diagnoses ESRD (end stage renal disease) ([facility]) Carlota Jin MD [address] [place] [address], [facility] [address] [place] [address] Phone: tel: fax: [facility] [place] [address] [place] [address] Phone: tel: fax: Referral ID Status Reason Start Date Expiration Date V isits Requested Visits Authorized [id number] New Request 03/17/2024 1 1 Encounter Details Date Type Department Care Team (Latest Contact Info) Description 09/25/2024 6:45 EST Treatment [facility] [address] [place] [id number] Carlota Jin MD [address] [place] [address], [facility] [address] [place] [address] ESRD (end stage renal disease) ([facility]) (Primary Dx); Hypoalbuminemia; Secondary hyperparathyroidism ([facility] Social History Tobacco Use Types Packs/Day Years Used Date Smoking Tobacco: Every Day Cigarettes 1 26.1 Started: 1998 Smokeless Tobacco: Never Alcohol Use Standard Drinks/Week Comments Yes 0 (1 standard drink = 0.6 oz pur e alcohol) Socially [facility] Utilities Answer Date Recorded In [...] time in the past 12 m [facility], were you homeless or living in [...] the past 12 months has th e [employer], gas, oil, or water [employer] threatened to shut off services in your [...] - Temperature - - Respiratory Rate 16 09/25/2024 0631 EST Oxygen Saturation - - Inhaled Oxygen Concentration - - Weight 79.2 kg (174 lb 9.7 oz) 09/25/[address] Height - - Body Mass Index 25.05 07/20/2024 1359 EDT documented in this encounter [...] Flowsheet Note - Marcela Cox RN - 09/25/2024 1340 EST 09/25/24 1051 Post-Hemodialysis Assessment Total Blood Processed (L) 91.41 Liters On Line Clearance: spKt/V 1.42 spKt/V Dialyzer Clearance Lightly streaked Treatment UFR (ml:kg:hr) 10.78 ml:kg:hr Final Critline Profile (%/hr) -0.97 Final Profile Profile A Critline refill Negative (36.7-36.7) Fluid Removed (L) 4.2 L Post-Dialysis Scale Weight 94.9 kg (209 lb 3.5 oz) Wheelchair Weight 19 kg (41 lb 14.2 oz) Prosthesis Weight 0 kg (0 lb) Post-Treatment Weight (kg) 75.9 Treatment Weight Change (kg) 3.3 kg Day Target Weight (kg) 75.5 Post Sitting/Lying BP (!) 189/94 Post Sitting/Lying pulse 69 Temp 36.7 ??C (98.1 ??F) Temp src Temporal Minutes Short -242 Post access assessment AVF/AFG Hemostasis achieved Yes Note 10 minute hold both sites no issues Orientation Alert and Oriented x3 Yes Time Yes Place Yes Person Yes Cooperative Yes Disoriented No Discharge Ambulation Methods Departs via w/c Wrap up items Patient Response to Treatment Tolerated tx well. Removed 4.2L UF goal without difficulty. Comments No issues during tx, no concerns voiced post tx. * Dialysis Comprehensive - Carlota Jin MD - 09/25/2024 0645 EST Images from the original note were not included. 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 associated with type 2diabetes mellitus ([facility]) ESRD (end stage renal disease) ([facility]) Primary hypertension [I10] Hearing loss Herniation of lumbar intervertebral disc with radiculopathy Hyperlipidemia Proteinuria Right sided numbness Secondary hyperparathyroidism ([facility]) TIA (transient ischemic attack) Type II or unspecified type diabetes mellitus with neurological manifestations, uncontrolled(250.62) Encounter for immunization Hypoalbuminemia Anemia of chronic renal failure Abnormal albumin Cellulitis and abscess of foot, except toes Encounter for therapeutic drug monitoring Diabetic foot infection ([facility]) [E11.628, L08.9] COVID Type 2 diabetes mellitus with chronic kidney disease on chronic dialysis, with long-term current use of insulin ([facility]) [E11.22, N18.6, Z99.2, Z79.4] Anemia of chronic renal failure, stage 5 ([facility]) [N18.5, D63.1] ESRD on hemodialysis ([facility]) Atrial fibrillation and flutter ([facility]) Anemia in chronic kidney disease Anxiety and depression GERD (gastroesophageal reflux disease) Nicotine dependence, cigarettes, uncomplicated Non-healing open wound of heel Olecranon bursitis, right elbow Osteoarthrosis Peripheral neuropathy Retinopathy Sciatica Smoker Type 2 diabetes mellitus with diabetic neuropathy, unspecified ([facility]) Secondary hyperparathyroidism of renal origin ([facility]) Diabetes mellitus ([facility]) Treatment Modality: Patient received information regarding [...] Listing On-Hold? No No No Transplant Center [facility] Comments Patient does not meet transplant criteria due to daily smoking cigarettes pt referred to transplant @ [facility] declined due to severe PVD with s/p [...] with Nursing: Yes Average Interdialytic Fluid Gains: 09/20/2024 6:26 09/20/2024 6:43 09/20/2024 11:02 09/22/2024 6:21 09/22/2024 6:25 09/22/2024 10:53 09/25/2024 6:31 InterDialytic +/- Gain/Loss 2.8 2.8 3.4 3.4 3.9 Wt (pre) 79.1 79.1 79 79 79.2 Wt (post) 75.6 75.3 Treatment UFR (ml:kg:hr) 11.2 ml:kg:hr 11.79 ml:kg:hr BP (post) 169/83 169/83 150/80 150/80 156/81 Pulse(post) 71 71 70 70 68 Resp (/min) 16 16 16 Volume and blood pressure have been addressed with the following changes: None Consistently able to achieve estimated dry weight? Yes Blood pressure is in range for patient? Yes Any adverse intradialytic symptoms? No Plan: Managed per protocol Physical Exam Constitutional No distress, wakes up easier today; not confused Respiratory: CTAB Cardiac: RRR Abdomen: soft Extremities: B/l LE amputations Hospitalization Hospitalization in Previous 1 Month: No Emergency Room Visit in Previous 1 Month: No Access Management Current LDAs: Hemodialysis Arteriovenous Access 02/13/19 (Active) AV Fistula Present 09/25/24 06 Site Assessment Clean;Dry;Intact;Bruit heard;Thrill felt 09/25/24 06 Current State Active 09/25/24 0653 Status Accessed 09/25/24 0653 Is Maturing N 09/25/24652 Local Anesthetic None 09/25/24 06 Site Prep Chlorhexidine 09/25/24 06 Venous Needle Size 15 G 09/25/2453 Arterial/Generic Needle Size 15 G 09/25/24 06 Accessed by: Sandra Rae 09/25/24652 Access Attempts 1 09/25/24 0653 Dressing Status/Care Clean/Dry/Intact 09/25/24 0653 Dressing Intervention Other (Comment) 05/30/242054 Patient has AVF/AVG as primary access: Yes Patient has Catheter as primary access >90 days: No Home Medication Review/Update Current Outpatient Medications: acetaminophen (TYLENOL) 325 mg tablet, Take 2 Tablets by mouth every 6 hours. (Patient taking differently: Take 500 mg by mouth every 6 hours. 2 po q6hrs), Disp: , Rfl: 0 albuterol 90 mcg/actuation [...] hours as needed. (Patient nottaking: Reported on 09/04/2024), Disp: , Rfl: insulin aspart U-100 (NOVOLOG FLEXPEN) 100 unit/mL (3 mL) injectable pen, Inject into the skin 3 times daily with meals. Per sliding scale, Disp: , Rfl: insulin glargine 100 unit/mL (3 mL) injection pen, Inject 23 Units into the skin at bedtime., Disp:, Rfl: insulin lispro (HUMALOG) 100 unit/mL vial, Inject into the skin 3 times daily before meals. 0-8 units subcutaneous q4hrs, Disp: , Rfl: insulin pen needles 32G x 5/32, Brand: [employer] Ultra Fine Anny. ISS TID and levemir once daily, Disp: 100 Each, Rfl: 11 pantoprazole (PROTONIX) 40 mg tablet, Take 1 Tablet by mouth daily., Disp: , Rfl: polyethylene glycol 3350 (MIRALAX) 17 gram packet, Take 17 g by mouth 2 times daily. (Patient not taking: Reported on 09/04/2024), Disp: , Rfl: pregabalin (LYRICA) 100 mg capsule, Take 1 Capsule by mouth 2 times daily. 1 tab in the morning, 2 tabs at night, Disp: , Rfl: senna-docusate (SENNA PLUS) 8.6-50 mg per tablet, Take 1 Tablet by mouth daily. (Patient not taking: Reported on 09/04/2024), Disp: , Rfl: sevelamer carbonate (RENVELA) 800 mg tablet, Take 3 Tablets by mouth 3 times daily with meals., Disp: 810 Tablet, Rfl: 3 sodium polystyrene (KAYEXALATE) powder, Take 15 g by mouth daily., Disp: 453.6 g, Rfl: 11 tiZANidine (ZANAFLEX) 4 mg tablet, Take 1 Tablet by mouth every 8 hours as needed., Disp: , Rfl: torsemide (DEMADEX) 100 mg tablet, Take 1 Tablet by mouth daily., Disp: 30 Tablet, Rfl: 11 Current Facility-Administered Medications: loperamide (IMODIUM) capsule 4 mg, 4 mg, oral, QID PRN, Carlota Jin MD, 4 mg at 09/25/24 0702 Adjustment made to home medication: No Dialysis Medication Review Dialysis Plan Order Summary All Current Orders Interval Duration Due Hemodialysis Therapy Plan Dialysis Treatment In-Center Hemodialysis 3 times a week Week of 09/24/2024 Routine, ONE TIME Starting when released Prescribed [...] - UF Profile: None Dialysis Last released: Wed09/25/2024 Oxygen Therapy (Age 3 yrs. to Adult) [...] released Until Discontinued, Pain, Dialysis Last released: Wed09/01/2024 diphenhydrAMINE (BENADRYL) capsule 25 mg PRN PRN [...] endof treatment. To be administered per Policy [id number]. Last released: Wed09/25/2024 sodium chloride 0.9 % BOLUS 100 mL PRN PRN 100 mL, intravenous, PRN Starting when released Until Discontinued, Other, hypotension or cramping,Dialysis Last released: Never Dialysis Weekly Labs Complete Blood Count Weekly: Wed09/27/2024 Routine, ONE TIME Starting when released, Blood, Venous, Blood Dialysis Last released: Wed09/20/2024 Dialysis Monthly Labs Dialysis Iron (Includes Iron, IBC, and Ferritin) - Nephrology Use Only On the Wed of every 1 month Wed10/30/2024 Routine, ONE TIME Starting when released, Blood, Venous, Blood Dialysis Last released: Wed09/25/2024 Dialysis Routine- Dialysis Use Only On the Wed of every 1 month Wed10/30/2024 Routine, ONE TIME Starting when released, Blood, Blood, Venous Dialysis Last released: Wed09/25/2024 Postdialysis BUN with URR Calculation On the Wed of every 1 month Wed10/30/2024 Routine, ONE TIME Starting when released, Blood, Blood, Venous Dialysis Last released: Wed09/25/2024 Dialysis Quarterly Labs PTH Intact On the Wed of every 3 months Wed10/30/2024 Routine, ONE TIME Starting when released, Blood, Venous, Blood Dialysis Last released: Wed07/31/2024 Dialysis Annual Labs - October Dialysis Hepatitis- Dialysis Use Only On the Wed of every 12 months Wed10/30/2024 Routine, ONE TIME Starting when released, Blood, Blood, Venous Dialysis Last released: Wed10/27/2023 Folate On the Mon of every 12 months Wed10/30/2024 Routine, ONE TIME Starting when released, Blood, Venous, Blood Dialysis Last released: Wed10/27/2023 Vitamin B12 On the Wed of every 12 months Wed10/30/2024 Routine, ONE TIME Starting when released, Blood, Venous, Blood Dialysis Last released: Wed10/27/2023 Vitamin D (25,OH) On the Wed of every 12 months Wed10/30/2024 Routine, ONE TIME Starting when released, Blood, Venous, Blood Dialysis Last released: Wed10/27/2023 Dialysis Annual Labs - April Hepatitis C Ab w Reflex to HCV RNA by PCR On the Wed of every 12 months Wed04/30/2025 Routine, ONE TIME Starting when released, Blood, Venous, Blood Dialysis Last released: Wed05/01/2024 Dialysis PRN Labs Potassium PRN PRN ONE TIME Starting when released, Blood, Venous, Blood Results Release to Patient (Note: Choosing Manual Release will only block results from tests performed at [facility] and does not apply for Miscellaneous Test Order): Immediate Dialysis Last released: Never HEMODIALYSIS NUTRITIONAL SUPPLEMENTS Nutritional Supplements LiquaCel liquid protein liquid 30 mL Every visit Every visit 30 mL, oral, ONCE IN DIALYSIS Starting when released Patient's flavor preference: either Dialysis Last released: Wed09/25/2024 HEMODIALYSIS CKD MBD MEDS Medications calcium carbonate (TUMS) tablet 500 mg (200 mg elemental calcium) 2 Tablet Every visit Every visit 2 Tablet, oral, ONCE IN DIALYSIS Starting when released, Dialysis Last released: Wed09/25/2024 Adjustment made to dialysis medication: No Laboratory Results Dialysis Adequacy: spKt/V: 1.57 (Calculated from:; BUN Pre-Dialysis: 75 mg/dL at 08/28/2024 11:23; BUN Post-Dialysis: 21 mg/dL at 08/28/2024 11:23; Pre-Treatment Weight (kg): 81.6 at 08/28/2024 6:22; Post-Treatment Weight(kg): 77.2 at 08/28/2024 10:47; Duration of Treatment (minutes): 250 minutes at 08/28/2024 10:47) Plan: Continue current dialysis prescription Anemia Management: Lab Results Component Value Date WBC 7.69 09/20/2024 HGB 12.5 (L) 09/20/2024 HGB 12.1 (L) 09/13/2024 HGB 11.5 (L) 09/06/2024 PLT 241 09/20/2024 FOLATE >24.0 10/27/2023 [id number] 607 10/27/2023 FERRITIN 366 (H) 08/28/2024 Current GEORGE/Dose: None Iron Series/Maintenance: This patient does not have an active medication from one of the medication groupers. Oral Iron: This patient does not have an active medication from one of the medication groupers. Blood Transfusion in Last Month: No Patient Meets Anemia Management Goals: Yes Plan: Managed per protocol Mineral and Renal Bone Disease Management: Lab Results Component Value Date LABALBU 3.1 (L) 08/28/2024 ALKPHOS 91 08/28/2024 PHOS 9.9 (H) 08/28/2024 CALCIUM 8.0 (L) 08/28/2024 CALCCA 8.7 (L) 08/28/2024 PTH 712 (H) 07/31/2024 Vitamin D: cholecalciferol (Vitamin D3) - 25 mcg (1,000 unit) sevelamer carbonate - 800 mg This patient does not have an active medication from one of the medication groupers. Plan: Managed per protocol Potassium Management: Lab Results Component Value Date K 5.8 (H) 08/28/2024 Prescribed Potassium Concentrate: HEMODIALYSIS Ordered at: 09/25/24 0631 Dialysate concentrate: Potassium 2 mEq/L Calcium 2.5 mEq/L 09/25/2024 6:31 Last Dialysis Prescription released on: Selected bath: Potassium 2 mEq/L Calcium 2.5 mEq/L sevelamer carbonate - 800 mg sodium polystyrene Plan: Managed per protocol Nutrition: Lab Results Component Value Date LABALBU 3.1 (L) 08/28/2024 TP 6.4 12/19/2023 NA 137 08/28/2024 SERGLU 265 (H) 05/31/2024 HGBA1C 11.6 (H) 11/07/2023 Protein Supplements: This patient does not have an active medication from one of the medication groupers. Plan: Managed per protocol Comments: Ongoing issues with severe hypoglycemia during dialysis. We are recommending he adjust his insulin regimen/morning food intake; in process. No issues today. Labs and weights to be reviewed next week over telemedicine. Carlota Jin MD documented in this encounter Plan of Treatment Upcoming Encounters Date Type Department Care Team (Patito noble Contact Info) Description 12/06/2024 6:45 EST Treatment [facility] [place] [address] [place], [place] [phone] Carlota Jin MD 1 [facility], [facility] [address] [place] [phone] 12/08/2024 6:45 EST Treatment [facility] [place] [address] [place], [place] [id number] Carlota Jin MD 1 [facility], [address] [phone] 12/11/2024 6:45 EST Treatment [facility] [address] [place], [place] [phone] Carlota Jin MD [address] [place] [address], [address] [phone] 12/13/2024 6:45 EST Treatment [facility] [address] [place], [place] [id number] Carlota Jin MD [address] [place] [address], [facility] [address] [place] [phone] 12/15/2024 6:45 EST Treatment [facility] [place] [address] [place], [place] [phone] Carlota Jin MD 1 [facility], [facility] [address] [place] [phone] 12/18/2024 6:45 EST Treatment [facility] [address] [place], [place] [phone] Carlota Jin MD 1 [facility], [facility] 2 [place] [phone] 12/20/2024 6:45 EST Treatment [facility] [place] [address] [place], [place] [phone] Carlota Jin MD 1 [facility], [facility] [address] [place] [phone] 12/22/2024 6:45 EST Treatment [facility] [place] [address] [place], [place] [phone] Carlota Jin MD 1 [facility], [facility] [address] [place] [phone] 12/25/2024 6:45 EST Treatment [facility] [place] [address] [place] [address] Carlota Jin MD 1 [facility], [facility] [address] [place] [phone] 12/27/2024 6:45 EST Treatment [facility] [place] [address] [place], [place] [id number] Carlota Jin MD 1 [facility], [facility] [address] [place] [phone] 12/29/2024 6:45 EST Treatment [facility] [place] [address] [place], [place] [phone] Carlota Jin MD 1 [facility], [facility] [address] [place] [phone] 01/01/2025 6:45 EDT Treatment [facility] [place] [address] [place], [place] [phone] Carlota Jin MD 1 [facility], [facility] [address] [place] [phone] 01/03/2025 6:45 EDT Treatment [facility] [place] [address] [place], [place] [id number] Carlota Jin MD 1 [facility], [facility] [address] [place] [phone] 01/05/2025 6:45 EDT Treatment [facility] [place] [address] [place] [address] Carlota Jin MD [address] [place] [address], [address] [phone] 01/08/2025 6:45 EDT Treatment [facility] [place] [address] [place], [place] [phone] Carlota Jin MD 1 [facility], [facility] [address] [place] [phone] 01/10/2025 6:45 EDT Treatment [facility] [place] [address] [place], [place] [phone] Carlota Jin MD 1 [facility], [facility] [address] [place] [phone] 01/12/2025 6:45 EDT Treatment [facility] [place] [address] [place] [address] Carlota Jin MD 1 [facility], [facility] 2 [place] [phone] 01/15/2025 6:45 EDT Treatment [facility] [place] [address] [place] [address] Carlota Jin MD 1 [facility], [facility] [address] [place] [phone] 01/17/2025 6:45 EDT Treatment [facility] [place] [address] [place] [address] Carlota Jin MD 1 [facility], [address] [phone] 01/19/2025 6:45 EDT Treatment [facility] [place] [address] [place] [address] Carlota Jin MD 1 [facility], [address] [phone] 01/22/2025 6:45 EDT Treatment [facility] [place] [address] [place] [address] Carlota Jin MD 1 [facility], [facility] 2 [place] [phone] 01/24/2025 6:45 EDT Treatment [facility] [place] [address] [place], [place] [phone] Carlota Jin MD 1 [facility], [facility] [address] [place] [phone] 01/26/2025 6:45 EDT Treatment [facility] [place] [address] [place], [place] [address] Carlota Jin MD 1 [facility], [facility] 2 [place] [phone] 01/29/2025 6:45 EDT Treatment [facility] [place] [address] [place], [place] [phone] Carlota Jin MD 1 [facility], [facility] 2 [place] [phone] 01/31/2025 6:45 EDT Treatment [facility] [place] [address] [place], [place] [address] Carlota Jin MD 1 [facility], [facility] 2 [place] [phone] 02/02/2025 6:45 EDT Treatment [facility] [place] [address] [place] [address] Carlota Jin MD [address] [place] [address], [facility] [address] [place] [phone] 02/05/2025 6:45 EDT Treatment [facility] [place] [address] [place], [place] [phone] Carlota Jin MD 1 [facility], [facility] 2 [place] [phone] 02/07/2025 6:45 EDT Treatment [facility] [place] [address] [place], [place] [address] Carlota Jin MD 1 [facility], [address] [phone] 02/09/2025 6:45 EDT Treatment [facility] [place] [address] [place], [place] [phone] Carlota Jin MD 1 [facility], [address] [phone] 02/12/2025 6:45 EDT Treatment [facility] [place] [address] [place], [place] [phone] Carlota Jin MD 1 [facility], [address] [phone] 02/14/2025 6:45 EDT Treatment [facility] [place] [address] [place], [place] [phone] Carlota Jin MD [address] [phone] 02/16/2025 6:45 EDT Treatment [facility] [place] [address] [place], [place] [phone] Carlota Jin MD [address] [phone] 02/19/2025 6:45 EDT Treatment [facility] [place] [address] [place], [place] [phone] Carlota Jin MD 1 [facility], [address] [phone] 02/21/2025 6:45 EDT Treatment [facility] [place] [address] [place], [place] [address] Carlota Jin MD 1 [facility], Level [address] [place] [phone] documented as of this encounter Procedures Procedure Name Priority Date/Time Associated Diagnosis Comments POSTDIALYSIS BUN WITH URR CALCULATION Routine 09/25/2024 11:14 EST ESRD (end stage renal disease) ([facility]) POCT GLUCOSE, INTERFACED Routine 09/25/2024 11:07 EST POCT GLUCOSE, INTERFACED Routine 09/25/2024 10:33 EST TRANSFERRIN SATURATION Routine 09/25/2024 6:39 EST ESRD (end stage renal disease) ([facility]) DIALYSIS ROUTINE - DIALYSIS ONLY (BUN, K, NA, CL, CO2, SANJEEV, ALB, MG, PHOS, ALKP, AST) Routine 09/25/2024 6:39 EST ESRD (end stage renal disease) ([facility]) PROFILE IRON STUDIES (INCLUDES IRON, IBC, AND FERRITIN) Routine 09/25/2024 6:39 EST ESRD (end stage renal disease) ([facility]) FERRITIN Routine 09/25/2024 6:39 EST ESRD (end stage renal disease) ([facility]) HEMODIALYSIS Routine 09/25/2024 6:31 EST ESRD (end stage renal disease) ([facility]LY [facility]) documented in this encounter Results * (ABNORMAL) POSTDIALYSIS BUN WITH URR CALCULATION (09/25/2024 11:14 EST) BUN, Postdialysis 27(H) 10 - 26 mg/dL 09/25/2024 22:39 [facility] Urea Reduction Rate 69.0 Not Established % 09/25/2024 22:39 [facility] Comment: NOTE: Reference range not established for Urea Reduction Rate. BUN 87(H) 10 - 26 mg/dL 09/25/2024 22:39 EST [facility] Blood VENOUS BLOOD / Unknown Venipuncture / Unknown 09/25/2024 11:14 EST 09/25/2024 11:14 EST Carlota Jin MD CHEMISTRY & BLOOD GAS ORD ERABLES Final Result Performing Organization Address City/[facility]/ZIP Co de Phone Number [facility] [address] [place] [address] * (ABNORMAL) POCT GLUCOSE, INTERFACED (09/25/2024 11:07 EST) Glucose, POC 130(H) 70 - 100 mg/dL 09/25/2024 11:08 EST [facility] HN LAB POC COMMENT (GLUCOSE) Test Performed by Nursing Services 09/25/2024 11:08 [facility] Blood CAPILLARY BLOOD / Unknown 09/25/2024 11:07 EST 09/25/2024 11:08 EST us Carlota Jin MD POINT OF CARE TEST ORDERA BLES Final Result Performing Organization Address City/[facility]/ZIP Co de Phone Number [facility] [address] [place] [address] * POCT GLUCOSE, INTERFACED (09/25/2024 10:33 EST) Glucose, POC 97 70 - 100 mg/dL 09/25/2024 10:35 EST [facility] HN LAB POC COMMENT (GLUCOSE) Test Performed by Nursing Services 09/25/2024 10:35 EST [facility] Blood CAPILLARY BLOOD / Unknown 09/25/2024 10:33 EST 09/25/2024 10:35 EST Carlota Jin MD POINT OF CARE TEST ORDERA BLES Final Result Performing Organization Address City[facility]/ZIP Co de Phone Number [facility] [address] [place] [address] * (ABNORMAL) FERRITIN (09/25/2024 6:39 EST) Ferritin 384(H) 22 - 322 ng/mL 09/25/2024 23:03 EST [facility] Blood VENOUS BLOOD / Unknown Venipuncture / Unknown 09/25/2024 6:39 EST 09/25/2024 6:39 EST Carlota Jin MD CHEMISTRY & BLOOD GAS ORD ERABLES Final Result Performing Organization Address [facility] de Phone Number [facility] [address] [place] [address] * (ABNORMAL) TRANSFERRIN SATURATION (09/25/2024 6:39 EST) Iron 97 49 - 181 ??g/dL 09/25/2024 22:42 EST [facility] Iron Binding Capacity 214(L) 240 - 450 ??g/dL 09/25/2024 22:42 [facility] Transferrin Saturation 45 15 - 45 % 09/25/2024 22:42 EST [facility] Blood VENOUS BLOOD / Unknown Venipuncture / Unknown 09/25/2024 6:39 EST 09/25/2024 6:39 EST Carlota Jin MD CHEMISTRY & BLOOD GAS ORD ERABLES Final Result Performing Organization Address [facility]/ZIP Co de Phone Number [facility] [address] [place] [address] * (ABNORMAL) DIALYSIS ROUTINE - DIALYSIS ONLY (BUN, K, NA, CL, CO2, SANJEEV, ALB, MG, PHOS, ALKP, AST) (09/25/2024 6:39 EST) Sodium 135(L) 136 - 145 mmol/L 09/25/2024 22:32 [facility] Potassium 8.0(H) 3.5 - 5.0 mmol/L 09/25/2024 22:32 [facility] Chloride 101 96 - 110 mmol/L 09/25/2024 22:32 [facility] CO2 Total 21(L) 22 - 32 mmol/L 09/25/2024 22:32 [facility] Calcium 7.9(L) 8.5 - 10.5 mg/dL 09/25/2024 22:32 [facility] Albumin 3.3(L) 3.4 - 4.9 g/dL 09/25/2024 22:32 [facility] Phosphorus 11.2(H) 2.5 - 4.5 mg/dL 09/25/2024 22:32 [facility] Calcium Phos Product 88.5 See Note mg/dL 09/25/2024 22:32 [facility] Comment: NOTE: Reference range not established BUN, Predialysis 87(H) 10 - 26 mg/dL 09/25/2024 22:32 [facility] AST 23 15 - 46 U/L 09/25/2024 22:32 [facility] Alkaline Phosphatase 80 38 - 126 U/L 09/25/2024 22:32 [facility] Magnesium 2.2 1.7 - 2.8 mg/dL 09/25/2024 22:32 [facility] Anion Gap 13 5 - 14 mmol/L 09/25/2024 22:32 [facility] Calculated Calcium 8.5(L) 8.9 - 10.5 mg/dL 09/25/2024 22:32 [facility] Blood VENOUS BLOOD / Unknown Venipuncture / Unknown 09/25/2024 6:39 EST 09/25/2024 6:39 EST us Carlota Jin MD CHEMISTRY & BLOOD GAS ORD ERABLES Final Result [facility] [address] [place] [address] documented in this encounter Visit Diagnoses Diagnosis ESRD (end stage renal disease) ([facility])- Primary End stage renal disease Hypoalbuminemia Other disorders of plasma protein metabolism Secondary hyperparathyroidism ([facility]) Secondary hyperparathyroidism (of renal origin) documented in this encounter Administered Medications Inactive Administered Medications - up to 3 most recent administrations Medication Order MAR Action Action Date Dose Rate Site calcium carbonate (TUMS) tablet 500 mg (200 mg elemental calcium) 2 Tablet 2 Tablet, oral, ONCE IN DIALYSIS, 1 dose, On Wed09/25/24 at 0700, Routine, DialysisIndications:ESRD (end stage renal disease) ([facility]),Secondary hyperparathyroidism ([facility]) Given 09/25/2024 7:02 EST 2 Tablets heparin injection 3,000 Units 3,000 Units, intravenous, ONCE IN DIALYSIS, 1 dose, On Wed09/25/24 at 0700, Routine, Dialysis, Now x1 bolus 1500 units to be given at the beginning of dialysis 500 units/hour to be given over the course of dialysis (3000 units total). Stop 1 hour prior to end of treatment. To be administered per Policy [id number].Indications:ESRD (end stage renal disease) ([facility]) Given 09/25/2024 7:02 EST 3,000 Units LiquaCel liquid protein liquid 30 mL 30 mL, oral, ONCE IN DIALYSIS, 1 dose, On Wed09/25/24 at 0700, Patient's flavor preference: either, Routine, DialysisIndications:ESRD (end stage renal disease) ([facility]),Hypoalbuminemia Given 09/25/2024 6:52 EST 30 mL loperamide (IMODIUM) capsule 4 mg 4 mg, oral, 4 TIMES DAILY PRN, Starting on Wed09/25/24 at 0640, Until Wed09/25/24 at 1540, Diarrhea, Routine Given 09/25/2024 7:02 EST 4 mg documented in this encounter Orders Dialysis Count Last Ordered Date First Orde red Date HEMODIALYSIS 1 09/25/2024 documented in this encounter Care Teams Warehouse Receiving Clerk Relationship Specialty Start Date End Date Ken Greer MD [address] [place] [address] PCP - General 07/07/23 Keil Powers Formation [employer]racturing Operator Nephrology 05/31/24 documented as of this encounter
--- OUTSIDE RECORDS SUMMARY | 2024-12-05 11:56 | XMS_ITS | Encounter Summary ---
Author Organization [facility] Address [address] [place] [address] Care Team Providers Care Infection Control Coordinator Name Role Phone Ken Greer MD Primary Care Provider [phone] Kiel Powers Unavailable Unavailable Encounter Details Date Type Department Care Team (Late st Contact Info) Description 09/26/2024 Documentation Visit [facility] [address] [place] [address] Shelley Eden, RD [address] [place] [address] Social History Tobacco Use Types Packs/Day Years Used Date Smoking Tobacco: Every Day Cigarettes 1 26.1 Started: 1998 Smokeless Tobacco: Never Alcohol Use Standard Drinks/Week Comments Yes 0 (1 standard drink = 0.6 oz pur e alcohol) Socially [facility] Utilities Answer Date Recorded In the past 12 months has e [employer], gas, oil, or water [email or web address] threatened to shut off services in your [...] your living situation today? I have a [facility] place to live 05/30/2024 Think about [...] the past 12 months has th e [employer], gas, oil, or water [email or web address] threatened to shut off services in your [...] Contact Info) Description 12/06/2024 6:45 EST Treatment [facility] [address] [place] [phone] Carlota Jin MD 1 [facility], Level [address] [place] [phone] 12/08/2024 6:45 EST Treatment [facility] [place] [address] [place], [place] [phone] Carlota Jin MD 1 [facility], [facility] [address] [place] [phone] 12/11/2024 6:45 EST Treatment [facility] [address] [place], [place] [phone] Carlota Jin MD 1 [facility], [facility] [address] [place] [phone] 12/13/2024 6:45 EST Treatment [facility] [place] [address] [place] [address] Carlota Jin MD 1 [facility], [address] [phone] 12/15/2024 6:45 EST Treatment [facility] [address] [place], [place] [phone] Carlota Jin MD 1 [facility], [address] [phone] 12/18/2024 6:45 EST Treatment [facility] [address] [place] [address] Carlota Jin MD 1 [facility], [facility] [address] [place] [phone] 12/20/2024 6:45 EST Treatment [facility] [address] [place], [place] [phone] Carlota Jin MD 1 [facility], [facility] [address] [place] [phone] 12/22/2024 6:45 EST Treatment [facility] [address] [place], [place] [phone] Carlota Jin MD 1 [facility], [facility] [address] [place] [phone] 12/25/2024 6:45 EST Treatment [facility] [address] [place], [place] [id number] Carlota Jin MD 1 [facility], [facility] [address] [place] [phone] 12/27/2024 6:45 EST Treatment [facility] [address] [place], [place] [phone] Carlota Jin MD 1 [facility], [facility] [address] [place] [phone] 12/29/2024 6:45 EST Treatment [facility] [address] [place], [place] [address] Carlota Jin MD 1 [facility], [facility] [address] [place] [phone] 01/01/2025 6:45 EDT Treatment [facility] [address] [place], [place] [phone] Carlota Jin MD 1 [facility], [facility] [address] [place] [phone] 01/03/2025 6:45 EDT Treatment [facility] [address] [place], [place] [phone] Carlota Jin MD 1 [facility], [facility] [address] [place] [phone] 01/05/2025 6:45 EDT Treatment [facility] [address] [place] [address] Carlota Jin MD 1 [facility], [address] [phone] 01/08/2025 6:45 EDT Treatment [facility] [address] [place], [place] [phone] Carlota Jin MD 1 [facility], [address] [phone] 01/10/2025 6:45 EDT Treatment [facility] [place] [address] [place], [place] [phone] Carlota Jin MD 1 [facility], [address] [phone] 01/12/2025 6:45 EDT Treatment [facility] [address] [place], [place] [phone] Carlota Jin MD 1 [facility], [facility] [address] [place] [phone] 01/15/2025 6:45 EDT Treatment [facility] [address] [place], [place] [phone] Carlota Jin MD 1 [facility], [facility] [address] [place] [phone] 01/17/2025 6:45 EDT Treatment [facility] [address] [place], [place] [phone] Carlota Jin MD 1 [facility], [facility] [address] [place] [phone] 01/19/2025 6:45 EDT Treatment [facility] [address] [place], [place] [phone] Carlota Jin MD 1 [facility], [facility] [address] [place] [phone] 01/22/2025 6:45 EDT Treatment [facility] [place] [address] [place] [address] Carlota Jin MD 1 [facility], [address] [phone] 01/24/2025 6:45 EDT Treatment [facility] [place] [address] [place], [place] [phone] Carlota Jin MD 1 [facility], [facility] [address] [place] [phone] 01/26/2025 6:45 EDT Treatment [facility] [address] [place], [place] [phone] Carlota Jin MD 1 [facility], [facility] [address] [place] [phone] 01/29/2025 6:45 EDT Treatment [facility] [place] [address] [place], [place] [phone] Carlota Jin MD 1 [facility], [facility] [address] [place] [phone] 01/31/2025 6:45 EDT Treatment [facility] [place] [address] [place], [place] [phone] Carlota Jin MD 1 [facility], [facility] [address] [place] [phone] 02/02/2025 6:45 EDT Treatment [facility] [address] [place], [place] [id number] Carlota Jin MD 1 [facility], [address] [phone] 02/05/2025 6:45 EDT Treatment [facility] [place] [address] [place], [place] [phone] Carlota Jin MD [address] [phone] 02/07/2025 6:45 EDT Treatment [facility] [place] [address] [place], [place] [phone] Carlota Jin MD [address] [phone] 02/09/2025 6:45 EDT Treatment [facility] [place] [address] [place], [place] [phone] Carlota Jin MD 1 [facility] [address] [place] [phone] 02/12/2025 6:45 EDT Treatment [facility] [address] [place], [place] [phone] Carlota Jin MD 1 [facility], [facility] [address] [place] [phone] 02/14/2025 6:45 EDT Treatment [facility] [address] [place], [place] [phone] Carlota Jin MD 1 [facility], [facility] [address] [place] [phone] 02/16/2025 6:45 EDT Treatment [facility] [address] [place], [place] [phone] Carlota Jin MD 1 [facility], [facility] [address] [place] [phone] 02/19/2025 6:45 EDT Treatment [facility] [place] [address] [place], [place] [phone] Carlota Jin MD 1 [facility], [facility] [address] [place] [phone] 02/21/2025 6:45 EDT Treatment [facility] [place] [address] [place], [place] [phone] Carlota Jin MD 1 [facility], [facility] [address] [place] [phone] documented as of this encounter Visit Diagnoses Not on filedocumented in this encounter Care Teams Infection Control Coordinator Relationship Specialty Start Date End Date Ken Greer MD [facility] [place] [address] PCP - General 07/07/23 Kiel Powers [employer] Nephrology 05/31/24 documented as of this encounter
--- OUTSIDE RECORDS SUMMARY | 2024-12-05 11:56 | XMS_ITS | Encounter Summary ---
Author Organization [facility] Address [address] [place] [address] Care Team Providers Care It Network Engineer Name Role Phone Ken Greer MD Primary Care Provider [phone] Kiel Powers Unavailable Unavailable Reason for Visit * Episode Based Medications (Routine) - New Request Specialty Diagnoses / Procedures Referred By Nader gardiner Referred To Contact Diagnoses ESRD (end stage renal disease) ([facility]) Carlota Jin MD [address] [place] [address], [facility] 2 [place] [address] Phone: tel: fax: [facility] [address] [place] [address] Phone: tel: fax: Referral ID Status Reason Start Date Expiration Date V isits Requested Visits Authorized [id number] New Request 03/17/2024 1 1 Encounter Details Date Type Department Care Team (Latest Contact Info) Description 10/04/2024 6:45 EST Treatment [facility] [address] [place] [phone] Carlota Jin MD [address] [place] [address], [facility] 2 [place] [phone] ESRD (end stage renal disease) ([facility]) (Primary Dx); Hypoalbuminemia; [facility] Social History Tobacco Use Types Packs/Day Years Used Date Smoking Tobacco: Every Day Cigarettes 1 26.1 Started: 1998 Smokeless Tobacco: Never Alcohol Use Standard Drinks/Week Comments Yes 0 (1 standard drink = 0.6 oz pur e alcohol) Socially [facility] Utilities Answer Date Recorded In the past [...] any time in the past 12 m [facility], were you homeless or living [...] the past 12 months has th e [employer], gas, oil, or water [employer] threatened to shut off services in your [...] - Temperature - - Respiratory Rate 16 10/04/2024 0630 EST Oxygen Saturation - - Inhaled Oxygen Concentration - - Weight 76.8 kg (169 lb 5 oz) 10/04/2024 0620 EST Height - - Body Mass Index 24.29 07/20/2024 1359 EDT documented in this encounter [...] Notes * Marcela Cox RN - 10/04/2024 0645 EST Pt reports BS check this am 47, reports taking 2 glucose tabs and 1/2 piece of toast prior to arrival. 0652- BS check upon tx initiation- 92, per Dr. Jin ok to give Dextrose solution d/t swallowing issues. 25 ml given 0714- 15 min recheck- 98 0803- 1 hr recheck - 91, another 25ml Dextrose solution given per protocol 0825- 15 min recheck- 103 0922- 1 hr recheck- 88, another 25 ml Dextrose solution given per protocol 0941- 15 min recheck- 95 1022- 1 hr recheck - 96, another 25 ml Dextrose solution given per protocol made aware of BS readings post tx documented in this encounter Miscellaneous Notes * Flowsheet Note - Marcela Cox RN - 10/04/2024 1246 EST 10/04/24 1024 Post-Hemodialysis Assessment Total Blood Processed (L) 82.95 Liters On Line Clearance: spKt/V 1.42 spKt/V Dialyzer Clearance Lightly streaked Treatment UFR (ml:kg:hr) 7.63 ml:kg:hr Critline refill Not done Fluid Removed (L) 1.82 L Post-Dialysis Scale Weight 95.5 kg (210 lb 8.6 oz) Wheelchair Weight 20.8 kg (45 lb 13.7 oz) Prosthesis Weight 0 kg (0 lb) Post-Treatment Weight (kg) 74.7 Treatment Weight Change (kg) 2.1 kg Day Target Weight (kg) 75.3 Post Sitting/Lying BP (!) 180/94 Post Sitting/Lying pulse 104 Temp 36.2 ??C (97.2 ??F) Temp src Temporal Minutes Short -221 Post access assessment AVF/AFG Hemostasis achieved Yes Note pt held for 10 minutes with blue clamps Orientation Alert and Oriented x3 Yes Time Yes Place Yes Person Yes Cooperative Yes Disoriented No Discharge Ambulation Methods Departs via w/c Wrap up items Patient Response to Treatment Removed 1.8L out of original 2L UF goal, unable to remove full goal as rinseback was performed 20 min early for c/o nausea and headache. During rinseback pt vomited. Symptoms improved post rinseback. reports post tx that pt was ill last evening with N/V. Comments made aware of issues during tx today, see alternate note for BG readings. * Dialysis Rounding - Paris Quintanilla NP - 10/04/2024 0645 EST Dialysis Provider's Routine Assessment Gerson Bruner was seen and examined as appropriate during Dialysis. Pertinent lab results were reviewed. Changes since last visit: Has had some very low sugars on multiple sessions, needed two boluses of glucose today, staff and pig machine supervisor collaborating w/ PCP. Nursing tells me today that the PCP is new, they can't get a visituntil October and that they have encouraged his to call the PCP office about too much long-acting insulin. Changes to current prescriptions/orders: None . Weight reviewed, coming off a little heavy. Quite hypertensive recently. Patient with transient episode tachycardia to 170's bpm during HD today presumed to be paroxysmal afib. RRR and regularradial pulse when leaving dialysis. Patient vomiting profusely during treatment. insurance account manager reports she has seen this vomiting before when he converts from arrhythmia. Patient states he has not felt very well at home over the past few days. He does not however recallvomiting during treatment today. He is hard of hearing but oriented. He is very sleepy post treatment. Headache resolved. Counseled to seek care if he is sick at home and nursing spoke to his post treatment today. Paris Quintanilla NP documented in this encounter Plan of Treatment Upcoming Encounters Date Type Department Care Team (Late st Contact Info) Description 12/06/2024 6:45 EST Treatment [facility] [address] [place], [place] [phone] Carlota Jin MD [address] [phone] 12/08/2024 6:45 EST [facility] [address] [place], [place] [phone] Carlota Jin MD [address] [place] [phone] 12/11/2024 6:45 EST [facility] [address] [place], [place] [phone] Carlota Jin MD [address] [place] [phone] 12/13/2024 6:45 EST Treatment [facility] [address] [place], [place] [phone] Carlota Jin MD [address] [place] [phone] 12/15/2024 6:45 EST Treatment [facility] [address] [place], [place] [phone] Carlota Jin MD 1 [facility], Level [address] [place] [phone] 12/18/2024 6:45 EST Treatment [facility] [address] [place], [place] [phone] Carlota Jin MD 1 [facility], [facility] 2 [place] [phone] 12/20/2024 6:45 EST Treatment [facility] [address] [place], [place] [phone] Carlota Jin MD 1 [facility], [facility] 2 [place] [phone] 12/22/2024 6:45 EST Treatment [facility] [address] [place], [place] [phone] Carlota Jin MD 1 [facility], [facility] 2 [place] [phone] 12/25/2024 6:45 EST Treatment [facility] [address] [place], [place] [phone] Carlota Jin MD 1 [facility], [facility] 2 [place] [phone] 12/27/2024 6:45 EST Treatment [facility] [address] [place], [place] [phone] Carlota Jin MD 1 [facility], [facility] 2 [place] [phone] 12/29/2024 6:45 EST Treatment [facility] [address] [place], [place] [phone] Carlota Jin MD 1 [facility], [facility] 2 [place] [phone] 01/01/2025 6:45 EDT Treatment [facility] [address] [place], [place] [phone] Carlota Jin MD 1 [facility], [facility] 2 [place] [phone] 01/03/2025 6:45 EDT Treatment [facility] [address] [place] [address] Carlota iJn MD 1 [facility], [address] [phone] 01/05/2025 6:45 EDT Treatment [facility] [address] [place], [place] [phone] Carlota Jin MD 1 [facility], [facility] 2 [place] [phone] 01/08/2025 6:45 EDT Treatment [facility] [address] [place], [place] [phone] Carlota Jin MD 1 [facility], [facility] 2 [place] [phone] 01/10/2025 6:45 EDT Treatment [facility] [address] [place] [address] Carlota Jin MD 1 [facility], [facility] [address] [place] [phone] 01/12/2025 6:45 EDT Treatment [facility] [address] [place] [address] Carlota Jin MD 1 [facility], [facility] 2 [place] [phone] 01/15/2025 6:45 EDT Treatment [facility] [address] [place] [address] Carlota Jin MD 1 [facility], [address] [phone] 01/17/2025 6:45 EDT Treatment [facility] [address] [place] [address] Carlota Jin MD 1 [facility], [address] [phone] 01/19/2025 6:45 EDT Treatment [facility] [address] [place] [address] Carlota Jin MD 1 [facility], [facility] 2 [place] [phone] 01/22/2025 6:45 EDT Treatment [facility] [address] [place], [place] [phone] Carlota Jin MD 1 [facility], [facility] 2 [place] [phone] 01/24/2025 6:45 EDT Treatment [facility] [address] [place], [place] [address] Carlota Jin MD 1 [facility], [facility] 2 [place] [phone] 01/26/2025 6:45 EDT Treatment [facility] [address] [place], [place] [phone] Carlota Jin MD 1 [facility], [facility] 2 [place] [phone] 01/29/2025 6:45 EDT Treatment [facility] [address] [place], [place] [phone] Carlota Jin MD 1 [facility], [facility] 2 [place] [phone] 01/31/2025 6:45 EDT Treatment [facility] [address] [place] [address] Carlota Jin MD 1 [facility], [facility] 2 [place] [phone] 02/02/2025 6:45 EDT Treatment [facility] [address] [place], [place] [phone] Carlota Jin MD 1 [facility], [facility] 2 [place] [phone] 02/05/2025 6:45 EDT Treatment [facility] [address] [place], [place] [address] Carlota Jin MD 1 [facility], [address] [phone] 02/07/2025 6:45 EDT Treatment [facility] [address] [place], [place] [phone] Carlota Jin MD 1 [facility], [address] [phone] 02/09/2025 6:45 EDT Treatment [facility] [address] [place], [place] [phone] Carlota Jin MD 1 [facility], [address] [phone] 02/12/2025 6:45 EDT Treatment [facility] [address] [place], [place] [phone] Carlota Jin MD [address] [phone] 02/14/2025 6:45 EDT Treatment [facility] [address] [place], [place] [phone] Carolta Jin MD [address] [phone] 02/16/2025 6:45 EDT Treatment [facility] [address] [place], [place] [phone] Carlota Jin MD 1 [facility], [address] [phone] 02/19/2025 6:45 EDT Treatment [facility] [address] [place], [place] [phone] Carlota Jin MD 1 [facility], Level [address] [place] [phone] 02/21/2025 6:45 EDT Treatment [facility] [address] [place], [place] [phone] Carlota Jin MD 1 [facility], [facility] [address] [place] [phone] documented as of this encounter Procedures Procedure Name Priority Date/Time Associated Diagnosis Comments POCT GLUCOSE, INTERFACED Routine 11/03/2024 8:39 EST POCT GLUCOSE, INTERFACED Routine 11/03/2024 7:27 EST POCT GLUCOSE, INTERFACED Routine 11/03/2024 6:59 EST POCT GLUCOSE, INTERFACED Routine 10/26/2024 10:50 EST POCT GLUCOSE, INTERFACED Routine 10/26/2024 10:28 EST POCT GLUCOSE, INTERFACED Routine 10/26/2024 9:41 EST POCT GLUCOSE, INTERFACED Routine 10/26/2024 9:16 EST POCT GLUCOSE, INTERFACED Routine 10/26/2024 8:25 EST POCT GLUCOSE, INTERFACED Routine 10/23/2024 10:34 EST POCT GLUCOSE, INTERFACED Routine 10/23/2024 10:12 EST POCT GLUCOSE, INTERFACED Routine 10/23/2024 9:24 EST POCT GLUCOSE, INTERFACED Routine 10/23/2024 9:04 EST POCT GLUCOSE, INTERFACED Routine 10/20/2024 10:41 EST POCT GLUCOSE, INTERFACED Routine 10/20/2024 10:13 EST POCT GLUCOSE, INTERFACED Routine 10/19/2024 11:07 EST POCT GLUCOSE, INTERFACED Routine 10/19/2024 10:46 EST POCT GLUCOSE, INTERFACED Routine 10/19/2024 9:02 EST POCT GLUCOSE, INTERFACED Routine 10/19/2024 7:18 EST POCT GLUCOSE, INTERFACED Routine 10/16/2024 11:10 EST POCT GLUCOSE, INTERFACED Routine 10/16/2024 9:36 EST POCT GLUCOSE, INTERFACED Routine 10/16/2024 9:15 EST POCT GLUCOSE, INTERFACED Routine 10/13/2024 10:41 EST POCT GLUCOSE, INTERFACED Routine 10/13/2024 9:02 EST POCT GLUCOSE, INTERFACED Routine 10/11/2024 11:02 EST POCT GLUCOSE, INTERFACED Routine 10/11/2024 10:45 EST POCT GLUCOSE, INTERFACED Routine 10/11/2024 9:29 EST POCT GLUCOSE, INTERFACED Routine 10/11/2024 9:12 EST POCT GLUCOSE, INTERFACED Routine 10/09/2024 11:10 EST POCT GLUCOSE, INTERFACED Routine 10/09/2024 10:50 EST POCT GLUCOSE, INTERFACED Routine 10/09/2024 9:40 EST POCT GLUCOSE, INTERFACED Routine 10/09/2024 9:19 EST POCT GLUCOSE, INTERFACED Routine 10/06/2024 9:05 EST POCT GLUCOSE, INTERFACED Routine 10/04/2024 10:22 EST POCT GLUCOSE, INTERFACED Routine 10/04/2024 9:41 EST POCT GLUCOSE, INTERFACED Routine 10/04/2024 9:22 EST POCT GLUCOSE, INTERFACED Routine 10/04/2024 8:25 EST POCT GLUCOSE, INTERFACED Routine 10/04/2024 8:03 EST POCT GLUCOSE, INTERFACED Routine 10/04/2024 7:14 EST POCT GLUCOSE, INTERFACED Routine 10/04/2024 6:52 EST COMPLETE BLOOD COUNT Routine 10/04/2024 6:37 EST ESRD (end stage renal disease) ([facility]) HEMODIALYSIS Routine 10/04/2024 6:30 EST ESRD (end stage renal disease) ([facility] documented in this encounter Results * (ABNORMAL) POCT GLUCOSE, INTERFACED (11/03/2024 8:39 EST) [facility] Signature Glucose, POC 116(H) 70 - 100 mg/dL 11/03/2024 8:40 EST [facility] HN LAB POC COMMENT (GLUCOSE) Test Performed by Nursing Services 11/03/2024 8:40 EST [facility] Blood CAPILLARY BLOOD / Unknown 11/03/2024 8:39 EST 11/03/2024 8:40 EST us Carlota Jin MD POINT OF CARE TEST ORDERA BLES Final Result Performing Organization Address City/[facility]/ZIP Co de Phone Number [facility] [address] [place] [address] * (ABNORMAL) POCT GLUCOSE, INTERFACED (11/03/2024 7:27 EST) Glucose, POC 135(H) 70 - 100 mg/dL 11/03/2024 7:28 EST [facility] HN LAB POC COMMENT (GLUCOSE) Test Performed by Nursing Services 11/03/2024 7:28 EST [facility] Blood CAPILLARY BLOOD / Unknown 11/03/2024 7:27 EST 11/03/2024 7:28 EST us Carlota Jin MD POINT OF CARE TEST ORDERA BLES Final Result Performing Organization Address [facility]/ZIP Co de Phone Number [facility] [address] [place] [address] * (ABNORMAL) POCT GLUCOSE, INTERFACED (11/03/2024 6:59 EST) Glucose, POC 152(H) 70 - 100 mg/dL 11/03/2024 7:01 EST [facility] HN LAB POC COMMENT (GLUCOSE) Test Performed by Nursing Services 11/03/2024 7:01 EST [facility] Blood CAPILLARY BLOOD / Unknown 11/03/2024 6:59 EST 11/03/2024 7:01 EST us Carlota Jin MD POINT OF CARE TEST ORDERA BLES Final Result [facility] [address] [place], [place] [address] * POCT GLUCOSE, INTERFACED (10/26/2024 10:50 EST) Glucose, POC 99 70 - 100 mg/dL 10/26/2024 10:51 EST [facility] HN LAB POC COMMENT (GLUCOSE) Test Performed by Nursing Services 10/26/2024 10:51 EST [facility] Blood CAPILLARY BLOOD / Unknown 10/26/2024 10:50 EST 10/26/2024 10:51 EST us Carlota Jin MD POINT OF CARE TEST ORDERA BLES Final Result [facility] [address] [place] [address] * POCT GLUCOSE, INTERFACED (10/26/2024 10:28 EST) Glucose, POC 86 70 - 100 mg/dL 10/26/2024 10:29 EST [facility] HN LAB POC COMMENT (GLUCOSE) Test Performed by Nursing Services 10/26/2024 10:29 EST [facility] Blood CAPILLARY BLOOD / Unknown 10/26/2024 10:28 EST 10/26/2024 10:29 EST us Carlota Jin MD POINT OF CARE TEST ORDERA BLES Final Result [facility] [address] [place], [place] [phone] * POCT GLUCOSE, INTERFACED (10/26/2024 9:41 EST) Glucose, POC 97 70 - 100 mg/dL 10/26/2024 9:42 EST [facility] HN LAB POC COMMENT (GLUCOSE) Test Performed by Nursing Services 10/26/2024 9:42 EST [facility] Blood CAPILLARY BLOOD / Unknown 10/26/2024 9:41 EST 10/26/2024 9:42 EST us Carlota Jin MD POINT OF CARE TEST ORDERA BLES Final Result Performing Organization Address City/[facility]/ZIP Co de Phone Number [facility] [address], [place] [phone] * POCT GLUCOSE, INTERFACED (10/26/2024 9:16 EST) Glucose, POC 93 70 - 100 mg/dL 10/26/2024 9:17 EST [facility] HN LAB POC COMMENT (GLUCOSE) Test Performed by Nursing Services 10/26/2024 9:17 EST [facility] Blood CAPILLARY BLOOD / Unknown 10/26/2024 9:16 EST 10/26/2024 9:17 EST us Carlota Jin MD POINT OF CARE TEST ORDERA BLES Final Result Performing Organization Address City/[facility]/ZIP Co de Phone Number [facility] [address] [place] [address] * POCT GLUCOSE, INTERFACED (10/26/2024 8:25 EST) Glucose, POC 97 70 - 100 mg/dL 10/26/2024 8:26 EST [facility] HN LAB POC COMMENT (GLUCOSE) Test Performed by Nursing Services 10/26/2024 8:26 EST [facility] Blood CAPILLARY BLOOD / Unknown 10/26/2024 8:25 EST 10/26/2024 8:26 EST us Carlota Jin MD POINT OF CARE TEST ORDERA BLES Final Result Performing Organization Address City/[facility]/ZIP Co de Phone Number [facility] [address] [place] [address] * POCT GLUCOSE, INTERFACED (10/23/2024 10:34 EST) Glucose, POC 91 70 - 100 mg/dL 10/23/2024 10:36 EST [facility] HN LAB POC COMMENT (GLUCOSE) Test Performed by Nursing Services 10/23/2024 10:36 EST [facility] Blood CAPILLARY BLOOD / Unknown 10/23/2024 10:34 EST 10/23/2024 10:36 EST us Carlota Jin MD POINT OF CARE TEST ORDERA BLES Final Result Performing Organization Address [facility] Co de Phone Number [facility] [address] [place] [address] * POCT GLUCOSE, INTERFACED (10/23/2024 10:12 EST) Glucose, POC 89 70 - 100 mg/dL 10/23/2024 10:13 EST [facility] HN LAB POC COMMENT (GLUCOSE) Test Performed by Nursing Services 10/23/2024 10:13 EST [facility] Blood CAPILLARY BLOOD / Unknown 10/23/2024 10:12 EST 10/23/2024 10:12 EST us Carlota Jin MD POINT OF CARE TEST ORDERA BLES Final Result Performing Organization Address [facility] de Phone Number [facility] [address] [place] [address] * POCT GLUCOSE, INTERFACED (10/23/2024 9:24 EST) Glucose, POC 93 70 - 100 mg/dL 10/23/2024 9:26 EST [facility] HN LAB POC COMMENT (GLUCOSE) Test Performed by Nursing Services 10/23/2024 9:26 EST [facility] Blood CAPILLARY BLOOD / Unknown 10/23/2024 9:24 EST 10/23/2024 9:26 EST us Carlota Jin MD POINT OF CARE TEST ORDERA BLES Final Result Performing Organization Address [facility]/ZIP Co de Phone Number [facility] [address], [place] [phone] * POCT GLUCOSE, INTERFACED (10/23/2024 9:04 EST) Glucose, POC 87 70 - 100 mg/dL 10/23/2024 9:05 EST [facility] HN LAB POC COMMENT (GLUCOSE) Test Performed by Nursing Services 10/23/2024 9:05 EST [facility] Blood CAPILLARY BLOOD / Unknown 10/23/2024 9:04 EST 10/23/2024 9:05 EST us Carlota Jin MD POINT OF CARE TEST ORDERA BLES Final Result Performing Organization Address [facility] Co de Phone Number [facility] [address], [place] [phone] * (ABNORMAL) POCT GLUCOSE, INTERFACED (10/20/2024 10:41 EST) Glucose, POC 109(H) 70 - 100 mg/dL 10/20/2024 10:42 EST [facility] HN LAB POC COMMENT (GLUCOSE) Test Performed by Nursing Services 10/20/2024 10:42 EST [facility] Blood CAPILLARY BLOOD / Unknown 10/20/2024 10:41 EST 10/20/2024 10:42 EST us Carlota Jin MD POINT OF CARE TEST ORDERA BLES Final Result Performing Organization Address [facility] Co de Phone Number [facility] [address], [place] [phone] * (ABNORMAL) POCT GLUCOSE, INTERFACED (10/20/2024 10:13 EST) Glucose, POC 110(H) 70 - 100 mg/dL 10/20/2024 10:15 EST [facility] HN LAB POC COMMENT (GLUCOSE) Test Performed by Nursing Services 10/20/2024 10:15 EST [facility] Blood CAPILLARY BLOOD / Unknown 10/20/2024 10:13 EST 10/20/2024 10:15 EST us Carlota Jin MD POINT OF CARE TEST ORDERA BLES Final Result Performing Organization Address City/[facility]/ZIP Co de Phone Number [facility] [address] [place] [address] * (ABNORMAL) POCT GLUCOSE, INTERFACED (10/19/2024 11:07 EST) Glucose, POC 123(H) 70 - 100 mg/dL 10/19/2024 11:08 EST [facility] HN LAB POC COMMENT (GLUCOSE) Test Performed by Nursing Services 10/19/2024 11:08 EST [facility] Blood CAPILLARY BLOOD / Unknown 10/19/2024 11:07 EST 10/19/2024 11:08 EST us Carlota iJn MD POINT OF CARE TEST ORDERA BLES Final Result Performing Organization Address [facility] Co de Phone Number [facility] [address] [place] [address] * POCT GLUCOSE, INTERFACED (10/19/2024 10:46 EST) Glucose, POC 87 70 - 100 mg/dL 10/19/2024 10:48 EST [facility] HN LAB POC COMMENT (GLUCOSE) Test Performed by Nursing Services 10/19/2024 10:48 EST [facility] Blood CAPILLARY BLOOD / Unknown 10/19/2024 10:46 EST 10/19/2024 10:47 EST us Carlota Jin MD POINT OF CARE TEST ORDERA BLES Final Result Performing Organization Address City/[facility]/ZIP Co de Phone Number [facility] [address] [place], [place] [phone] * (ABNORMAL) POCT GLUCOSE, INTERFACED (10/19/2024 9:02 EST) Glucose, POC 101(H) 70 - 100 mg/dL 10/19/2024 9:03 [facility] HN LAB POC COMMENT (GLUCOSE) Test Performed by Nursing Services 10/19/2024 9:03 [facility] Blood CAPILLARY BLOOD / Unknown 10/19/2024 9:02 EST 10/19/2024 9:03 EST Carlota Jin MD POINT OF CARE TEST ORDERA BLES Final Result [facility] [address], [place] [id number] * (ABNORMAL) POCT GLUCOSE, INTERFACED (10/19/2024 7:18 EST) Glucose, POC 127(H) 70 - 100 mg/dL 10/19/2024 7:19 [facility] HN LAB POC COMMENT (GLUCOSE) Test Performed by Nursing Services 10/19/2024 7:19 [facility] Blood CAPILLARY BLOOD / Unknown 10/19/2024 7:18 EST 10/19/2024 7:19 EST us Carlota Jin MD POINT OF CARE TEST ORDERA BLES Final Result [facility] [address], [place] [id number] * (ABNORMAL) POCT GLUCOSE, INTERFACED (10/16/2024 11:10 EST) Glucose, POC 143(H) 70 - 100 mg/dL 10/16/2024 11:11 [facility] HN LAB POC COMMENT (GLUCOSE) Test Performed by Nursing Services 10/16/2024 11:11 [facility] Blood CAPILLARY BLOOD / Unknown 10/16/2024 11:10 EST 10/16/2024 11:11 EST us Carlota Jin MD POINT OF CARE TEST ORDERA BLES Final Result [facility] [address] [place] [address] * (ABNORMAL) POCT GLUCOSE, INTERFACED (10/16/2024 9:36 EST) Glucose, POC 108(H) 70 - 100 mg/dL 10/16/2024 9:37 EST [facility] HN LAB POC COMMENT (GLUCOSE) Test Performed by Nursing Services 10/16/2024 9:37 EST [facility] Blood CAPILLARY BLOOD / Unknown 10/16/2024 9:36 EST 10/16/2024 9:37 EST us Carlota Jin MD POINT OF CARE TEST ORDERA BLES Final Result Performing Organization Address [facility]/ZIP Co de Phone Number [facility] [address] [place] [address] * POCT GLUCOSE, INTERFACED (10/16/2024 9:15 EST) Glucose, POC 91 70 - 100 mg/dL 10/16/2024 9:16 EST [facility] HN LAB POC COMMENT (GLUCOSE) Test Performed by Nursing Services 10/16/2024 9:16 EST [facility] Blood CAPILLARY BLOOD / Unknown 10/16/2024 9:15 EST 10/16/2024 9:16 EST us Carlota Jin MD POINT OF CARE TEST ORDERA BLES Final Result Performing Organization Address City/[facility]/ZIP Co de Phone Number [facility] [address] [place] [address] * (ABNORMAL) POCT GLUCOSE, INTERFACED (10/13/2024 10:41 EST) Glucose, POC 108(H) 70 - 100 mg/dL 10/13/2024 10:43 EST [facility] HN LAB POC COMMENT (GLUCOSE) Test Performed by Nursing Services 10/13/2024 10:43 EST [facility] Blood CAPILLARY BLOOD / Unknown 10/13/2024 10:41 EST 10/13/2024 10:43 EST Carlota Jin MD POINT OF CARE TEST ORDERA BLES Final Result Performing Organization Address City/[facility]/ZIP Co de Phone Number [facility] [address] [place] [address] * (ABNORMAL) POCT GLUCOSE, INTERFACED (10/13/2024 9:02 EST) Glucose, POC 113(H) 70 - 100 mg/dL 10/13/2024 9:03 EST [facility] HN LAB POC COMMENT (GLUCOSE) Test Performed by Nursing Services 10/13/2024 9:03 EST [facility] Blood CAPILLARY BLOOD / Unknown 10/13/2024 9:02 EST 10/13/2024 9:03 EST us Carlota Jin MD POINT OF CARE TEST ORDERA BLES Final Result Performing Organization Address City/[facility]/ZIP Co de Phone Number [facility] [address] [place] [address] * (ABNORMAL) POCT GLUCOSE, INTERFACED (10/11/2024 11:02 EST) Glucose, POC 139(H) 70 - 100 mg/dL 10/11/2024 11:04 EST [facility] HN LAB POC COMMENT (GLUCOSE) Test Performed by Nursing Services 10/11/2024 11:04 EST [facility] Blood CAPILLARY BLOOD / Unknown 10/11/2024 11:02 EST 10/11/2024 11:04 EST Carlota Jin MD POINT OF CARE TEST ORDERA BLES Final Result Performing Organization Address City/[facility]/ZIP Co de Phone Number [facility] [address] [place] [address] * POCT GLUCOSE, INTERFACED (10/11/2024 10:45 EST) Glucose, POC 87 70 - 100 mg/dL 10/11/2024 10:47 EST [facility] HN LAB POC COMMENT (GLUCOSE) Test Performed by Nursing Services 10/11/2024 10:47 EST [facility] Blood CAPILLARY BLOOD / Unknown 10/11/2024 10:45 EST 10/11/2024 10:47 EST Carlota Jin MD POINT OF CARE TEST ORDERA BLES Final Result Performing Organization Address [facility] Co de Phone Number [facility] [address] [place] [address] * (ABNORMAL) POCT GLUCOSE, INTERFACED (10/11/2024 9:29 EST) Glucose, POC 105(H) 70 - 100 mg/dL 10/11/2024 9:31 EST [facility] HN LAB POC COMMENT (GLUCOSE) Test Performed by Nursing Services 10/11/2024 9:31 EST [facility] Blood CAPILLARY BLOOD / Unknown 10/11/2024 9:29 EST 10/11/2024 9:31 EST Carlota Jin MD POINT OF CARE TEST ORDERA BLES Final Result Performing Organization Address City/[facility]/ZIP Co de Phone Number [facility] [address] [place] [address] * POCT GLUCOSE, INTERFACED (10/11/2024 9:12 EST) Glucose, POC 91 70 - 100 mg/dL 10/11/2024 9:13 EST [facility] HN LAB POC COMMENT (GLUCOSE) Test Performed by Nursing Services 10/11/2024 9:13 EST [facility] Blood CAPILLARY BLOOD / Unknown 10/11/2024 9:12 EST 10/11/2024 9:13 EST us Carlota Jin MD POINT OF CARE TEST ORDERA BLES Final Result Performing Organization Address City/[facility]/ZIP Co de Phone Number [facility] [address] [place] [address] * (ABNORMAL) POCT GLUCOSE, INTERFACED (10/09/2024 11:10 EST) Glucose, POC 133(H) 70 - 100 mg/dL 10/09/2024 11:12 EST [facility] HN LAB POC COMMENT (GLUCOSE) Test Performed by Nursing Services 10/09/2024 11:12 EST [facility] Blood CAPILLARY BLOOD / Unknown 10/09/2024 11:10 EST 10/09/2024 11:12 EST us Carlota Jin MD POINT OF CARE TEST ORDERA BLES Final Result Performing Organization Address [facility] de Phone Number [facility] [address] [place] [address] * (ABNORMAL) POCT GLUCOSE, INTERFACED (10/09/2024 10:50 EST) Glucose, POC 60(L) 70 - 100 mg/dL 10/09/2024 10:52 EST [facility] HN LAB POC COMMENT (GLUCOSE) Test Performed by Nursing Services 10/09/2024 10:52 EST [facility] Blood CAPILLARY BLOOD / Unknown 10/09/2024 10:50 EST 10/09/2024 10:52 EST us Carlota Jin MD POINT OF CARE TEST ORDERA BLES Final Result [facility] [address], [place] [phone] * (ABNORMAL) POCT GLUCOSE, INTERFACED (10/09/2024 9:40 EST) Glucose, POC 113(H) 70 - 100 mg/dL 10/09/2024 9:41 EST [facility] HN LAB POC COMMENT (GLUCOSE) Test Performed by Nursing Services 10/09/2024 9:41 EST [facility] Blood CAPILLARY BLOOD / Unknown 10/09/2024 9:40 EST 10/09/2024 9:41 EST Carlota Jin MD POINT OF CARE TEST ORDERA BLES Final Result Performing Organization Address City/[facility]/ZIP Co de Phone Number [facility] [address], [place] [phone] * POCT GLUCOSE, INTERFACED (10/09/2024 9:19 EST) Glucose, POC 93 70 - 100 mg/dL 10/09/2024 9:21 EST [facility] HN LAB POC COMMENT (GLUCOSE) Test Performed by Nursing Services 10/09/2024 9:21 EST [facility] Blood CAPILLARY BLOOD / Unknown 10/09/2024 9:19 EST 10/09/2024 9:21 EST Carlota Jin MD POINT OF CARE TEST ORDERA BLES Final Result Performing Organization Address City/[facility]/ZIP Co de Phone Number [facility] [address], [place] [phone] * (ABNORMAL) POCT GLUCOSE, INTERFACED (10/06/2024 9:05 EST) Glucose, POC 135(H) 70 - 100 mg/dL 10/06/2024 9:06 EST [facility] HN LAB POC COMMENT (GLUCOSE) Test Performed by Nursing Services 10/06/2024 9:06 EST [facility] Blood CAPILLARY BLOOD / Unknown 10/06/2024 9:05 EST 10/06/2024 9:06 EST Carlota Jin MD POINT OF CARE TEST ORDERA BLES Final Result [facility] [address] [place] [address] * POCT GLUCOSE, INTERFACED (10/04/2024 10:22 EST) Glucose, POC 96 70 - 100 mg/dL 10/04/2024 10:23 EST [facility] HN LAB POC COMMENT (GLUCOSE) Test Performed by Nursing Services 10/04/2024 10:23 EST [facility] Blood CAPILLARY BLOOD / Unknown 10/04/2024 10:22 EST 10/04/2024 10:23 EST us Carlota Jin MD POINT OF CARE TEST ORDERA BLES Final Result Performing Organization Address [facility]/ZIP Co de Phone Number [facility] [address] [place] [address] * POCT GLUCOSE, INTERFACED (10/04/2024 9:41 EST) Glucose, POC 95 70 - 100 mg/dL 10/04/2024 9:42 EST [facility] HN LAB POC COMMENT (GLUCOSE) Test Performed by Nursing Services 10/04/2024 9:42 EST [facility] Blood CAPILLARY BLOOD / Unknown 10/04/2024 9:41 EST 10/04/2024 9:42 EST us Carlota Jin MD POINT OF CARE TEST ORDERA BLES Final Result Performing Organization Address City/[facility]/ZIP Co de Phone Number [facility] [address] [place] [address] * POCT GLUCOSE, INTERFACED (10/04/2024 9:22 EST) Glucose, POC 88 70 - 100 mg/dL 10/04/2024 9:23 EST [facility] HN LAB POC COMMENT (GLUCOSE) Test Performed by Nursing Services 10/04/2024 9:23 EST [facility] Blood CAPILLARY BLOOD / Unknown 10/04/2024 9:22 EST 10/04/2024 9:23 EST Carlota Jin MD POINT OF CARE TEST ORDERA BLES Final Result Performing Organization Address City/[facility]/ZIP Co de Phone Number [facility] [address], [place] [phone] * (ABNORMAL) POCT GLUCOSE, INTERFACED (10/04/2024 8:25 EST) Glucose, POC 103(H) 70 - 100 mg/dL 10/04/2024 8:26 EST [facility] HN LAB POC COMMENT (GLUCOSE) Test Performed by Nursing Services 10/04/2024 8:26 EST [facility] Blood CAPILLARY BLOOD / Unknown 10/04/2024 8:25 EST 10/04/2024 8:26 EST us Carlota Jin MD POINT OF CARE TEST ORDERA BLES Final Result [facility] [address] [place] [phone] * POCT GLUCOSE, INTERFACED (10/04/2024 8:03 EST) Glucose, POC 91 70 - 100 mg/dL 10/04/2024 8:12 EST [facility] HN LAB POC COMMENT (GLUCOSE) Test Performed by Nursing Services 10/04/2024 8:12 EST [facility] Blood CAPILLARY BLOOD / Unknown 10/04/2024 8:03 EST 10/04/2024 8:12 EST Carlota Jin MD POINT OF CARE TEST ORDERA BLES Final Result Performing Organization Address City/[facility]/ZIP Co de Phone Number [facility] [address] [place] [address] * POCT GLUCOSE, INTERFACED (10/04/2024 7:14 EST) Glucose, POC 98 70 - 100 mg/dL 10/04/2024 7:15 EST [facility] HN LAB POC COMMENT (GLUCOSE) Test Performed by Nursing Services 10/04/2024 7:15 EST [facility] Blood CAPILLARY BLOOD / Unknown 10/04/2024 7:14 EST 10/04/2024 7:14 EST us Carlota Jin MD POINT OF CARE TEST ORDERA BLES Final Result Performing Organization Address [facility] Co de Phone Number [facility] [address] [place] [address] * POCT GLUCOSE, INTERFACED (10/04/2024 6:52 EST) Glucose, POC 92 70 - 100 mg/dL 10/04/2024 6:53 EST [facility] HN LAB POC COMMENT (GLUCOSE) Test Performed by Nursing Services 10/04/2024 6:53 EST [facility] Blood CAPILLARY BLOOD / Unknown 10/04/2024 6:52 EST 10/04/2024 6:53 EST Carlota Jin MD POINT OF CARE TEST ORDERA BLES Final Result Performing Organization Address City/[facility] Co de Phone Number [facility] [address] [place] [address] * (ABNORMAL) COMPLETE BLOOD COUNT (10/04/2024 6:37 EST) WBC 10.95(H) 4.00 - 10.40 K/cmm 10/04/2024 22:02 [facility] RBC 3.86(L) 4.36 - 5.78 M/cmm 10/04/2024 22:02 [facility] Hemoglobin 11.2(L) 13.8 - 17.3 g/dL 10/04/2024 22:02 [facility] HCT 34.9(L) 39.5 - 50.2 % 10/04/2024 22:02 [facility] MCV 90 81 - 95 fL 10/04/2024 22:02 [facility] MCH 29.0 27.6 - 33.0 pg 10/04/2024 22:02 [facility] MCHC 32.1(L) 32.8 - 36.4 g/dL 10/04/2024 22:02 [facility] RDW-CV 15.8(H) <14.2 % 10/04/2024 22:02 [facility] RDW-SD 52.4(H) <46.0 fl 10/04/2024 22:02 [facility] PLT 220 141 - 377 K/cmm 10/04/2024 22:02 [facility] MPV 11.6 9.5 - 12.7 fL 10/04/2024 22:02 [facility] Blood VENOUS BLOOD / Unknown Venipuncture / Unknown 10/04/2024 6:37 EST 10/04/2024 6:37 EST us Carlota Jin MD HEMATOLOGY & PF4 ORDERABL ES Final Result [facility] [address] [place] [address] documented in this encounter Visit Diagnoses Diagnosis ESRD (end stage renal disease) ([facility])- Primary End stage renal disease Hypoalbuminemia Other disorders of plasma protein metabolism Secondary hyperparathyroidism (HCC-CMS) Secondary hyperparathyroidism (of renal origin) documented in this encounter Administered Medications Inactive Administered Medications - up to 3 most recent administrations Medication Order MAR Action Action Date Dose Rate Site calcium carbonate (TUMS) tablet 500 mg (200 mg elemental calcium) 2 Tablet 2 Tablet, oral, ONCE IN DIALYSIS, 1 dose, On Wed10/04/24 at 0700, Routine, DialysisIndications:ESRD (end stage renal disease) ([facility]),Secondary hyperparathyroidism ([facility]) Given 10/04/2024 6:38 EST 2 Tablets dextrose 50 % solution 12.5 g 12.5 g, intravenous, NOW X1, 1 dose, On Wed10/04/24 at 0945, RoutineIndications:ESRD (end stage renal disease) ([facility]) Given 10/04/2024 12:44 EST 12.5 g Given 10/04/2024 9:26 EST 12.5 g dextrose 50 % solution 25 g 25 g, intravenous, NOW X1, 1 dose, On Wed10/04/24 at 0715, Routine Given 10/04/2024 6:54 EST 12.5 g dextrose 50 % solution 25 g 25 g, intravenous, NOW X1, 1 dose, On Wed10/04/24 at 0830, Routine Given 10/04/2024 8:06 EST 12.5 g heparin injection 3,000 Units 3,000 Units, intravenous, ONCE IN DIALYSIS, 1 dose, On Wed10/04/24 at 0700, Routine, Dialysis, Now x1 bolus 1500 units to be given at the beginning of dialysis 500 units/hour to be given over the course of dialysis (3000 units total). Stop 1 hour prior to end of treatment. To be administered per Policy [id number].Indications:ESRD (end stage renal disease) ([facility]) Given 10/04/2024 6:50 EST 3,000 Units LiquaCel liquid protein liquid 30 mL 30 mL, oral, ONCE IN DIALYSIS, 1 dose, On Wed10/04/24 at 0700, Patient's flavor preference: either, Routine, DialysisIndications:ESRD (end stage renal disease) ([facility]),Hypoalbuminemia Given 10/04/2024 6:38 EST 30 mL documented in this encounter Orders Dialysis Count Last Ordered Date First Orde red Date HEMODIALYSIS 1 10/04/2024 documented in this encounter Care Teams It Network Engineer Relationship Specialty Start Date End Date Ken Greer [place] [address] PCP - General 07/07/23 Kiel Powers Sales Engineer Nephrology 05/31/24 documented as of this encounter
--- OUTSIDE RECORDS SUMMARY | 2024-12-05 11:56 | XMS_ITS | Encounter Summary ---
Author Organization [facility] Address [address] [place] [address] Care Team Providers Care Balloon Design Printer Name Role Phone Ken Greer MD Primary Care Provider [phone] Kiel Powers Unavailable Unavailable Reason for Visit * Episode Based Medications (Routine) - New Request Specialty Diagnoses / Procedures Referred By Nader gardiner Referred To Contact Diagnoses ESRD (end stage renal disease) ([facility]) Carlota Jin MD [address] [place] [address], [facility] [address] [place] [address] Phone: tel: fax: [facility] [place] [address] [place] [address] Phone: tel: fax: Referral ID Status Reason Start Date Expiration Date V isits Requested Visits Authorized [id number] New Request 03/17/2024 1 1 Encounter Details Date Type Department Care Team (Latest Contact Info) Description 09/20/2024 6:45 EST Treatment [facility] [address] [place] [id number] Carlota Jin MD [address] [place] [address], [facility] [address] [place] [address] ESRD (end stage renal disease) ([facility]) (Primary Dx); Hypoalbuminemia; Secondary hyperparathyroidism ([facility]) Social History Tobacco Use Types Packs/Day Years Used Date Smoking Tobacco: Every Day Cigarettes 1 26.1 Started: 1998 Smokeless Tobacco: Never Alcohol Use Standard Drinks/Week Comments Yes 0 (1 standard drink = 0.6 oz pur e alcohol) Socially [facility] Utilities Answer Date Recorded In the [...] were you homeless or living in a prison (including now)? No 05/30/2024 Interpersonal Safety Answer [...] the past 12 months has th e xzoops, gas, oil, or water [employer] threatened to shut off services in your [...] - Temperature - - Respiratory Rate 16 09/20/2024 0626 EST Oxygen Saturation - - Inhaled Oxygen Concentration - - Weight 79.1 kg (174 lb 6.1 oz) 09/20/[address] Height - - Body Mass Index 25.02 07/20/2024 1359 EDT documented in this encounter [...] Flowsheet Note - Marcela Cox RN - 09/20/2024 1150 EST 09/20/24 1102 Post-Hemodialysis Assessment Total Blood Processed (L) 85.86 Liters On Line Clearance: spKt/V 1.42 spKt/V Dialyzer Clearance Lightly streaked Treatment UFR (ml:kg:hr) 11.2 ml:kg:hr Critline refill Not done Fluid Removed (L) 4.1 L Post-Dialysis Scale Weight 107 kg (235 lb 14.3 oz) Wheelchair Weight 31.4 kg (69 lb 3.6 oz) Prosthesis Weight 0 kg (0 lb) Post-Treatment Weight (kg) 75.6 Treatment Weight Change (kg) 3.5 kg Day Target Weight (kg) 75.5 Post Sitting/Lying BP 173/89 Post Sitting/Lying pulse 67 Temp 36.3 ??C (97.3 ??F) Temp src Temporal Minutes Short -248 Post access assessment AVF/AFG Hemostasis achieved Yes Note 15 min hold w/clamps arterial rebleed during pull Orientation Alert and Oriented x3 Yes Time Yes Place Yes Person Yes Cooperative Yes Disoriented No Discharge Ambulation Methods Departs via w/c;With patient transport Wrap up items Patient Response to Treatment Tolerated tx well. Removed 4.1L UF goal without difficulty. Comments No issues during tx, no concerns voiced post tx. documented in this encounter Plan of Treatment Upcoming Encounters Date Type Department Care Team (Late st Contact Info) Description 12/06/2024 6:45 EST Treatment [facility] [place] [address] [place], [place] [id number] Carlota Jin MD 1 [facility], [facility] 2 [place] [phone] 12/08/2024 6:45 EST Treatment [facility] [place] [address] [place], [place] [id number] Carlota Jin MD 1 [facility], [address] [phone] 12/11/2024 6:45 EST Treatment [facility] [place] [address] [place], [place] [id number] Carlota Jin MD 1 [facility], [address] [phone] 12/13/2024 6:45 EST Treatment [facility] [place] [address] [place], [place] [id number] Carlota Jin MD 1 [facility], [address] [phone] 12/15/2024 6:45 EST Treatment [facility] [place] [address] [place], [place] [id number] Carlota Jin MD 1 [facility], [facility] [address] [place] [phone] 12/18/2024 6:45 EST Treatment [facility] [place] [address] [place], [place] [phone] Carlota Jin MD 1 [facility], [facility] 2 [place] [phone] 12/20/2024 6:45 EST Treatment [facility] [place] [address] [place], [place] [id number] Carlota Jin MD 1 [facility], [facility] [address] [place] [phone] 12/22/2024 6:45 EST Treatment [facility] [place] [address] [place], [place] [id number] Carlota Jin MD 1 [facility], [facility] [address] [place] [phone] 12/25/2024 6:45 EST Treatment [facility] [place] [address] [place], [place] [id number] Carlota Jin MD 1 [facility], [facility] [address] [place] [phone] 12/27/2024 6:45 EST Treatment [facility] [place] [address] [place], [place] [phone] Carlota Jin MD 1 [facility], [facility] [address] [place] [phone] 12/29/2024 6:45 EST Treatment [facility] [place] [address] [place], [place] [id number] Carlota Jin MD 1 [facility], [facility] [address] [place] [phone] 01/01/2025 6:45 EDT Treatment [facility] [place] [address] [place], [place] [address] Carlota Jin MD 1 [facility], [facility] 2 [place] [phone] 01/03/2025 6:45 EDT Treatment [facility] [place] [address] [place], [place] [phone] Carlota Jin MD 1 [facility], [facility] [address] [place] [phone] 01/05/2025 6:45 EDT Treatment [facility] [place] [address] [place] [address] Carlota Jin MD 1 [facility], [facility] 2 [place] [phone] 01/08/2025 6:45 EDT Treatment [facility] [place] [address] [place] [address] Carlota Jin MD 1 [facility], [facility] 2 [place] [phone] 01/10/2025 6:45 EDT Treatment [facility] [address] [place], [place] [id number] Carlota Jin MD 1 [facility], [facility] [address] [place] [phone] 01/12/2025 6:45 EDT Treatment [facility] [place] [address] [place], [place] [phone] Carlota Jin MD 1 [facility], [facility] 2 [place] [phone] 01/15/2025 6:45 EDT Treatment [facility] [place] [address] [place], [place] [phone] Carlota Jin MD 1 [facility], [facility] [address] [place] [phone] 01/17/2025 6:45 EDT Treatment [facility] [place] [address] [place], [place] [phone] Carlota Jin MD [address] [place] [address], [facility] [address] [place] [phone] 01/19/2025 6:45 EDT Treatment [facility] [place] [address] [place], [place] [phone] Carlota Jin MD [address] [place] [address], [facility] [address] [place] [phone] 01/22/2025 6:45 EDT Treatment [facility] [place] [address] [place], [place] [phone] Carlota Jin MD 1 [facility], [facility] [address] [place] [phone] 01/24/2025 6:45 EDT Treatment [facility] [place] [address] [place], [place] [phone] Carlota Jin MD 1 [facility], [facility] [address] [place] [phone] 01/26/2025 6:45 EDT Treatment [facility] [place] [address] [place], [place] [phone] Carlota Jin MD 1 [facility], [facility] 2 [place] [phone] 01/29/2025 6:45 EDT Treatment [facility] [place] [address] [place], [place] [id number] Carlota Jin MD 1 [facility], [address] [phone] 01/31/2025 6:45 EDT Treatment [facility] [place] [address] [place], [place] [id number] Carlota Jin MD 1 [facility], [address] [phone] 02/02/2025 6:45 EDT Treatment [facility] [place] [address] [place], [place] [phone] Carlota Jin MD 1 [facility], [facility] 2 [place] [phone] 02/05/2025 6:45 EDT Treatment [facility] [place] [address] [place], [place] [phone] Carlota Jin MD 1 [facility], [facility] 2 [place] [phone] 02/07/2025 6:45 EDT Treatment [facility] [place] [address] [place], [place] [id number] Carlota Jin MD 1 [facility], [facility] 2 [place] [phone] 02/09/2025 6:45 EDT Treatment [facility] [place] [address] [place], [place] [phone] Carlota Jin MD 1 [facility], [facility] 2 [place] [phone] 02/12/2025 6:45 EDT Treatment [facility] [place] [address] [place] [address] Carlota Jin MD 1 [facility], [address] [phone] 02/14/2025 6:45 EDT Treatment [facility] [place] [address] [place], [place] [address] Carlota Jin MD 1 [facility], [facility] 2 [place] [phone] 02/16/2025 6:45 EDT Treatment [facility] [place] [address] [place], [place] [phone] Carlota Jin MD 1 [facility], [facility] 2 [place] [phone] 02/19/2025 6:45 EDT Treatment [facility] [place] [address] [place], [place] [phone] Carlota Jin MD 1 [facility], Level [address] [place] [phone] 02/21/2025 6:45 EDT Treatment [facility] [place] [address] [place], [place] [phone] Carlota Jin MD 1 [facility], [address] [place] [phone] documented as of this encounter Procedures Procedure Name Priority Date/Time Associated Diagnosis Comments COMPLETE BLOOD COUNT Routine 09/20/2024 7:05 EST ESRD (end stage renal disease) ([facility]) HEMODIALYSIS Routine 09/20/2024 6:26 EST ESRD (end stage renal disease) ([facility]) documented in this encounter Results * (ABNORMAL) COMPLETE BLOOD COUNT (09/20/2024 7:05 EST) WBC 7.69 4.00 - 10.40 K/cmm 09/20/2024 22:00 [facility] RBC 4.33(L) 4.36 - 5.78 M/cmm 09/20/2024 22:00 [facility] Hemoglobin 12.5(L) 13.8 - 17.3 g/dL 09/20/2024 22:00 [facility] HCT 39.3(L) 39.5 - 50.2 % 09/20/2024 22:00 [facility] MCV 91 81 - 95 fL 09/20/2024 22:00 [facility] MCH 28.9 27.6 - 33.0 pg 09/20/2024 22:00 [facility] MCHC 31.8(L) 32.8 - 36.4 g/dL 09/20/2024 22:00 [facility] RDW-CV 17.6(H) <14.2 % 09/20/2024 22:00 EST [facility] RDW-SD 59.0(H) <46.0 fl 09/20/2024 22:00 EST [facility] PLT 241 141 - 377 K/cmm 09/20/2024 22:00 EST [facility] MPV 11.6 9.5 - 12.7 fL 09/20/2024 22:00 EST [facility] Blood VENOUS BLOOD / Unknown Venipuncture / Unknown 09/20/2024 7:05 EST 09/20/2024 7:05 EST us Carlota Jin MD HEMATOLOGY & PF4 ORDERABL ES Final Result [facility] [address] [place] [address] documented in this encounter Visit Diagnoses Diagnosis ESRD (end stage renal disease) ([facility])- Primary End stage renal disease Hypoalbuminemia Other disorders of plasma protein metabolism Secondary hyperparathyroidism ([facility]) Secondary hyperparathyroidism (of renal origin) documented in this encounter Administered Medications Inactive Administered Medications - up to 3 most recent administrations Medication Order MAR Action Action Date Dose Rate Site calcium carbonate (TUMS) tablet 500 mg (200 mg elemental calcium) 2 Tablet 2 Tablet, oral, ONCE IN DIALYSIS, 1 dose, On Wed09/20/24 at 0645, Routine, DialysisIndications:ESRD (end stage renal disease) ([facility]),Secondary hyperparathyroidism ([facility]) Given 09/20/2024 6:48 EST 2 Tablets heparin injection 3,000 Units 3,000 Units, intravenous, ONCE IN DIALYSIS, 1 dose, On Wed09/20/24 at 0645, Routine, Dialysis, Now x1 bolus 1500 units to be given at the beginning of dialysis 500 units/hour to be given over the course of dialysis (3000 units total). Stop 1 hour prior to end of treatment. To be administered per Policy [id number].Indications:ESRD (end stage renal disease) ([facility]) Given 09/20/2024 7:04 EST 3,000 Units LiquaCel liquid protein liquid 30 mL 30 mL, oral, ONCE IN DIALYSIS, 1 dose, On Wed09/20/24 at 0645, Patient's flavor preference: either, Routine, DialysisIndications:ESRD (end stage renal disease) ([facility]),Hypoalbuminemia Given 09/20/2024 6:48 EST 30 mL documented in this encounter Orders Dialysis Count Last Ordered Date First Orde red Date HEMODIALYSIS 1 09/20/2024 documented in this encounter Care Teams Balloon Design Printer Relationship Specialty Start Date End Date Ken Greer MD [facility] [place] [address] PCP - General 07/07/23 Kiel Powers Physics Technician Nephrology 05/31/24 documented as of this encounter
--- OUTSIDE RECORDS SUMMARY | 2024-12-05 11:57 | XMS_ITS | Encounter Summary ---
Author Organization [facility] Address [address] [place] [address] Care Team Providers Care Branch Banker Name Role Phone Ken Greer MD Primary Care Provider [phone] Kiel Powers Unavailable Unavailable Encounter Details Date Type Department Care Team (Late st Contact Info) Description 09/04/2024 Documentation Visit [facility] [address] [place] [place] [address] Alexa Estrada [facility] [address] [place] [address] Social History Tobacco Use Types Packs/Day Years Used Date Smoking Tobacco: Every Day Cigarettes 1 26.1 Started: 1998 Smokeless Tobacco: Never Alcohol Use Standard Drinks/Week Comments Yes 0 (1 standard drink = 0.6 oz pur e alcohol) Socially [facility] Utilities Answer Date Recorded In the past 12 months has [facility], gas, oil, or water [employer] threatened to shut off services in your [...] in a detention (including now)? No 05/30/2024 Interpersonal Safety Answer Date Record ed How often does anyone, martin lyons family, hit, punch or physically hurt you? 05/30/2024 How often does anyone, martin lyons family, insult, scream, curse or threaten to hurt you? 05/30/2024 Living Situation Answer Date Recorded What is your living situation today? I have a [facility] place to live 05/30/2024 Think about [...] th e electric, gas, oil, or water [employer] threatened to shut off services in your [...] this encounter Progress Notes * Alexa Estrada, MASS SPEC - 09/04/2024 1142 EST Surveillance Technician's Monthly Assessment UPDATE: SW met with pt and his following dialysis. Pt was approved for LTC Medicaid and his , Melissa, will be his paid caregiver (through [employer]). This also helped with covering the pts prosthetics. Anil continue to follow and remain available Current Living Situation: Lives with family and Lives with friends Lives with family Pt lives with his , Hoda, in their apartment in [place]. He rents the apartment and has a [...] Transportation Status: Transportation: Drives Self Payor: Receives [employer] mileage reimbursement. Change in Physical/Medical Status and [...] Patient/Family Strengths: Pt is friendly and engaging Interests/Spiritual/Holiness Practice: No spiritual practices Depression Screening: Is [...] [facility] [place] [address] [place], [place] [id number] Carlota Jin MD [address] [facility], [facility] [address] [place] [phone] 12/08/2024 6:45 EST Treatment [facility] [place] [address] [place], [place] [id number] Carlota Jin MD [address] [place] [address] [phone] 12/11/2024 6:45 EST Treatment [facility] [place] [address] [place], [place] [id number] Carlota Jin MD [address] [phone] 12/13/2024 6:45 EST Treatment [facility] [place] [address] [place], [place] [id number] Carlota Jin MD [address] [place] [address] [phone] 12/15/2024 6:45 EST Treatment [facility] [place] [address] [place], [place] [id number] Carlota Jin MD [address] [place] [address] [phone] 12/18/2024 6:45 EST Treatment [facility] [place] [address] [place], [place] [id number] Carlota Jin MD [address] [facility], [facility] [address] [place] [phone] 12/20/2024 6:45 EST Treatment [facility] [place] [address] [place], [place] [id number] Carlota Jin MD [address] [facility], [facility] 2 [place] [phone] 12/22/2024 6:45 EST Treatment [facility] [address] [place], [place] [id number] Carlota Jin MD [address] [facility], [facility] [address] [place] [phone] 12/25/2024 6:45 EST Treatment [facility] [place] [address] [place], [place] [id number] Carlota Jin MD [address] [facility], [facility] [address] [place] [phone] 12/27/2024 6:45 EST Treatment [facility] [place] [address] [place], [place] [id number] Carlota Jin MD [address] [facility], [facility] [address] [place] [phone] 12/29/2024 6:45 EST Treatment [facility] [place] [address] [place], [place] [id number] Carlota Jin MD [address] [facility], [facility] [address] [place] [phone] 01/01/2025 6:45 EDT Treatment [facility] [place] [address] [place], [place] [id number] Carlota Jin MD 1 [facility], [facility] [address] [place] [phone] 01/03/2025 6:45 EDT Treatment [facility] [place] [address] [place], [place] [id number] Carlota Jin MD [address] [facility], [address] [phone] 01/05/2025 6:45 EDT Treatment [facility] [place] [address] [place], [place] [id number] Carlota Jin MD [address] [facility], [address] [phone] 01/08/2025 6:45 EDT Treatment [facility] [place] [address] [place], [place] [id number] Carlota Jin MD [address] [facility], [facility] [address] [place] [phone] 01/10/2025 6:45 EDT Treatment [facility] [place] [address] [place], [place] [id number] Carlota Jin MD [address] [facility], [facility] [address] [place] [phone] 01/12/2025 6:45 EDT Treatment [facility] [place] [address] [place], [place] [id number] Carlota Jin MD [address] [facility], [facility] [address] [place] [phone] 01/15/2025 6:45 EDT Treatment [facility] [place] [address] [place], [place] [id number] Carlota Jin MD [address] [facility], [facility] [address] [place] [phone] 01/17/2025 6:45 EDT Treatment [facility] [place] [address] [place], [place] [id number] Carlota Jin MD [address] [facility], [address] [phone] 01/19/2025 6:45 EDT Treatment [facility] [place] [address] [place], [place] [id number] Carlota Jin MD [address] [facility], [facility] [address] [place] [phone] 01/22/2025 6:45 EDT Treatment [facility] [place] [address] [place], [place] [id number] Carlota Jin MD [address] [facility], [facility] [address] [place] [phone] 01/24/2025 6:45 EDT Treatment [facility] [place] [address] [place], [place] [id number] Carlota Jin MD [address] [facility], [facility] 2 [place] [phone] 01/26/2025 6:45 EDT Treatment [facility] [place] [address] [place] [address] Carlota Jin MD [address] [facility], [address] [phone] 01/29/2025 6:45 EDT Treatment [facility] [place] [address] [place], [place] [id number] Carlota Jin MD [address] [facility], [address] [phone] 01/31/2025 6:45 EDT Treatment [facility] [place] [address] [place] [address] Carlota Jin MD [address] [facility], [address] [phone] 02/02/2025 6:45 EDT Treatment [facility] [place] [address] [place], [place] [id number] Carlota Jin MD [address] [facility], [address] [phone] 02/05/2025 6:45 EDT Treatment [facility] [place] [address] [place], [place] [id number] Carlota Jin MD [address] [facility], [facility] 2 [place] [phone] 02/07/2025 6:45 EDT Treatment [facility] [place] [address] [place], [place] [id number] Carlota Jin MD [address] [facility], [facility] 2 [place] [phone] 02/09/2025 6:45 EDT Treatment [facility] [place] [address] [place], [place] [id number] Carlota Jin MD [address] [facility], [facility] [address] [place] [phone] 02/12/2025 6:45 EDT Treatment [facility] [place] [address] [place], [place] [id number] Carlota Jin MD [address] [facility], [facility] 2 [place] [phone] 02/14/2025 6:45 EDT Treatment [facility] [place] [address] [place], [place] [id number] Carlota Jin MD [address] [facility], [facility] [address] [place] [phone] 02/16/2025 6:45 EDT Treatment [facility] [address] [place], [place] [id number] Carlota Jin MD [address] [facility], [facility] [address] [place] [phone] 02/19/2025 6:45 EDT Treatment [facility] [place] [address] [place], [place] [id number] Carlota Jin MD [address] [place] [address], [facility] [address] [place] [phone] 02/21/2025 6:45 EDT Treatment [facility] [place] [address] [place], [place] [phone] Carlota Jin MD [address] [place] [address], [facility] [address] [place] [phone] documented as of this encounter Visit Diagnoses Not on filedocumented in this encounter Care Teams Branch Banker Relationship Specialty Start Date End Date Ken Greer MD [address] [facility] [place] [address] PCP - General 07/07/23 Kiel Powers Dialysis Rn Nephrology 05/31/24 documented as of this encounter
--- OUTSIDE RECORDS SUMMARY | 2024-12-05 11:57 | XMS_ITS | Encounter Summary ---
Author Organization [facility] Address [address] [place] [address] Care Team Providers Care Copyright Expert Name Role Phone Ken Greer MD Primary Care Provider [phone] Kiel Powers Unavailable Unavailable Reason for Visit * Episode Based Medications (Routine) - New Request Specialty Diagnoses / Procedures Referred By Nader gardiner Referred To Contact Diagnoses ESRD (end stage renal disease) ([facility]) Carlota Jin MD [address] [place] [address], [facility] [address] [place] [address] Phone: tel: fax: [facility] Dialysi - Start [address] [place] [address] Phone: tel: fax: Referral ID Status Reason Start Date Expiration Date V isits Requested Visits Authorized [id number] New Request 03/17/2024 1 1 Encounter Details Date Type Department Care Team (Latest Contact Info) Description 09/06/2024 6:45 EST Treatment [facility]ial[facility] [address] [place] [id number] Carlota Jin MD [address] [place] [address], [facility] [address] [place] [address] ESRD (end stage renal disease) ([facility]) (Primary Dx); Hypoalbuminemia; Secondary hyperparathyroidism ([facility] Social History Tobacco Use Types Packs/Day Years Used Date Smoking Tobacco: Every Day Cigarettes 1 26.1 Started: 1998 Smokeless Tobacco: Never Alcohol Use Standard Drinks/Week Comments Yes 0 (1 standard drink = 0.6 oz pur e alcohol) Socially [facility] Utilities Answer Date Recorded In [...] any time in the past 12 m [facility], were you homeless or living in a halfway (including now)? No 05/30/2024 Interpersonal Safety Answer [...] the past 12 months has th e [employer], gas, oil, or water Dick or Bro threatened to shut off services in your [...] - Temperature - - Respiratory Rate 16 09/06/2024 0629 EST Oxygen Saturation - - Inhaled Oxygen Concentration - - Weight 79.7 kg (175 lb 11.3 oz) 09/06/2024 0621 EST Height - - Body Mass Index 25.21 07/20/2024 1359 EDT documented in this encounter [...] Flowsheet Note - Marcela Cox RN - 09/06/2024 1129 EST 09/06/24 1045 Post-Hemodialysis Assessment Total Blood Processed (L) 89.66 Liters On Line Clearance: spKt/V 1.51 spKt/V Dialyzer Clearance Lightly streaked Treatment UFR (ml:kg:hr) 13.57 ml:kg:hr Final Critline Profile (%/hr) -1.37 Final Profile Profile A Critline refill Not done Fluid Removed (L) 4.3 L Post-Dialysis Scale Weight 94.5 kg (208 lb 5.4 oz) Wheelchair Weight 19 kg (41 lb 14.2 oz) Prosthesis Weight 0 kg (0 lb) Post-Treatment Weight (kg) 75.5 Treatment Weight Change (kg) 4.2 kg Day Target Weight (kg) 75.9 Post Sitting/Lying BP 167/81 Post Sitting/Lying pulse 63 Temp 36.8 ??C (98.2 ??F) Temp src Temporal Minutes Short -246 Post access assessment AVF/AFG Hemostasis achieved Yes [...] voiced post tx. * Dialysis Rounding - Prais Quintanilla NP - 09/06/2024 6940 EST Dialysis Provider's Routine Assessment Gerson Bruner was seen and examined as appropriate during Dialysis. Pertinent lab results were reviewed. Changes since last visit: None Changes to current prescriptions/orders: None Patient was seen at the end of treatment. I observed him sleeping soundly during treatment. He sometimes gets headaches at the end of dialysis but not today, he feels pretty good. Patient states he does have sleep apnea but then stated he has never had a sleep test, has never had equipment. He says he doesn't sleep well at night at home. He is comfortable with me contacting his care team about this. The topic came up due to nursing observations on multiple occasions during dialysis when patient seems to be unresponsive for a few minutes but will then recover promptly. Cou ld consider TIAs as differential diagnosis and has a history of TIA per his problem list. K 5.8 mEq/L improved from 6.6 mEq/L in July 2024 Calca 8.7 mg/dL similar to July 2024 Phos is very high at 9.9 mg/dL virtually unchanged from 10.0 mg/dL in July 2024; RD discussed with patient on 08/18. Good dialysis adequacy URR 72.0% Hgb at target 10.3 g/dL on Epogen protocol currently 9000 units/week. Paris Quintanilla NP documented in this encounter Plan of Treatment Upcoming Encounters Date Type Department Care Team (Late st Contact Info) Description 12/06/2024 6:45 EST Treatment [facility] Dialysi - Start [address] [place] [address] Carlota Jin MD 1 [facility], Level [address] [place] [address] 12/08/2024 6:45 EST Treatment [facility] Dialysi - Start [address] [place], [place] [id number] Carlota Jin MD 1 [facility], [facility] 2 [place] [phone] 12/11/2024 6:45 EST Treatment [facility] Dialysi - Start [address] [place], [place] [id number] Carlota Jin MD 1 [facility], [facility] 2 [place] [phone] 12/13/2024 6:45 EST Treatment [facility] Dialysi - Start [address] [place], [place] [id number] Carlota Jin MD 1 [facility], [facility] 2 [place] [phone] 12/15/2024 6:45 EST Treatment [facility] Dialysi - [place] [address] [place], [place] [id number] Carlota Jin MD 1 [facility], [facility] 2 [place] [phone] 12/18/2024 6:45 EST Treatment [facility] Dialysi - [place] [address] [place], [place] [id number] Carlota Jin MD 1 [facility], [facility] 2 [place] [phone] 12/20/2024 6:45 EST Treatment [facility] Dialysi - Start [address] [place], [place] [phone] Carlota [facility] MD 1 [facility], [facility] 2 [place] [phone] 12/22/2024 6:45 EST Treatment [facility] Dial[facility] - Start [address] [place], [place] [address] Carlota Jin MD 1 [facility], [facility] [address] [place] [phone] 12/25/2024 6:45 EST Treatment [facility] Dialysi - Start [address] [place], [place] [id number] Carlota Jin MD 1 [facility], [facility] 2 [place] [phone] 12/27/2024 6:45 EST Treatment [facility] Dialysi - [place] [address] [place], [place] [id number] Carlota Jin MD 1 [facility], [facility] 2 [place] [phone] 12/29/2024 6:45 EST Treatment [facility] [address] [place], [place] [id number] Carlota Jin MD 1 [facility], [facility] [address] [place] [phone] 01/01/2025 6:45 EDT Treatment [facility] [address] [place], [place] [id number] Carlota Jin MD 1 [facility], [facility] 2 [place] [phone] 01/03/2025 6:45 EDT Treatment [facility] Dialysi - Start [address] [place], [place] [id number] Carlota Jin MD 1 [facility], [facility] [address] [place] [phone] 01/05/2025 6:45 EDT Treatment [facility] Dialysi - Start [address] [place], [place] [id number] Carlota Jin MD [address] [place] [address], [address] [phone] 01/08/2025 6:45 EDT Treatment [facility] Dialysi - Start [address] [place], [place] [id number] Carlota Jin MD [address] [place] [address], [address] [phone] 01/10/2025 6:45 EDT Treatment [facility] Dialysi - [place] [address] [place], [place] [id number] Carlota Jin MD [address] [place] [address], [facility] [address] [place] [phone] 01/12/2025 6:45 EDT Treatment [facility] Dialysi - Start [address] [place], [place] [id number] Carlota Jin MD 1 [facility], [facility] 2 [place] [phone] 01/15/2025 6:45 EDT Treatment [facility] Dialysi - Start [address] [place], [place] [phone] Carlota Jin MD 1 [facility], [facility] [address] [place] [phone] 01/17/2025 6:45 EDT Treatment [facility] Dialysi - Start [address] [place], [place] [id number] Carlota Jin MD 1 [facility], [facility] [address] [place] [phone] 01/19/2025 6:45 EDT Treatment [facility] Dialysi - Start [address] [place] [address] Carlota Jin MD 1 [facility], [facility] 2 [place] [phone] 01/22/2025 6:45 EDT Treatment [facility] Dialysi - Start [address] [place] [address] Carlota Jin MD 1 [facility], [facility] [address] [place] [phone] 01/24/2025 6:45 EDT Treatment [facility] Dialysi - Start [address] [place] [address] Carlota Jin MD 1 [facility], [facility] 2 [place] [phone] 01/26/2025 6:45 EDT Treatment [facility] Dialysi - Start [address] [place], [place] [id number] Carlota Jin MD 1 [facility], [facility] [address] [place] [phone] 01/29/2025 6:45 EDT Treatment [facility] Dialysi - [place] [address] [place], [place] [phone] Carlota Jin MD 1 [facility], [facility] [address] [place] [phone] 01/31/2025 6:45 EDT Treatment [facility] Dialysi - [place] [address] [place], [place] [phone] Carlota Jin MD 1 [facility], [facility] 2 [place] [phone] 02/02/2025 6:45 EDT Treatment [facility] Dialysi - Start [address] [place] [address] Carlota Jin MD 1 [facility], [address] [phone] 02/05/2025 6:45 EDT Treatment [facility] Dialysi - Start [address] [place], [place] [id number] Carlota Jin MD 1 [facility], [facility] 2 [place] [phone] 02/07/2025 6:45 EDT Treatment [facility] Dialysi - Start [address] [place], [place] [phone] Carlota Jin MD 1 [facility], [facility] 2 [place] [phone] 02/09/2025 6:45 EDT Treatment [facility] Dialysi - Start [address] [place], [place] [id number] Carlota Jin MD 1 [facility], [facility] 2 [place] [phone] 02/12/2025 6:45 EDT Treatment [facility] Dialysi - Start [address] [place] [address] Carlota Jin MD 1 [facility], [facility] 2 [place] [phone] 02/14/2025 6:45 EDT Treatment [facility] Dialysi - Start [address] [place] [address] Carlota Jin MD 1 [facility], [facility] 2 [place] [phone] 02/16/2025 6:45 EDT Treatment [facility] Dialysi - Start [address] [place] [address] Carlota Jin MD 1 [facility], [facility] 2 [place] [phone] 02/19/2025 6:45 EDT Treatment [facility] Dialysi - [place] [address] [place] [address] Carlota Jin MD 1 [facility], [facility] 2 [place] [phone] 02/21/2025 6:45 EDT Treatment [facility] Dialysi - Start [address] [place], [place] [phone] Carlota Jin MD 1 [facility], [facility] [address] [place] [phone] documented as of this encounter Procedures Procedure Name Priority Date/Time Associated Diagnosis Comments COMPLETE BLOOD COUNT Routine 09/06/2024 6:33 EST ESRD (end stage renal disease) ([facility]) HEMODIALYSIS Routine 09/06/2024 6:29 EST ESRD (end stage renal disease) ([facility]) documented in this encounter Results * (ABNORMAL) COMPLETE BLOOD COUNT (09/06/2024 6:33 EST) WBC 8.77 4.00 - 10.40 K/cmm 09/06/2024 21:59 [facility] RBC 3.97(L) 4.36 - 5.78 M/cmm 09/06/2024 21:59 [facility] Hemoglobin 11.5(L) 13.8 - 17.3 g/dL 09/06/2024 21:59 [facility] HCT 36.7(L) 39.5 - 50.2 % 09/06/2024 21:59 [facility] MCV 92 81 - 95 fL 09/06/2024 21:59 [facility] MCH 29.0 27.6 - 33.0 pg 09/06/2024 21:59 [facility] MCHC 31.3(L) 32.8 - 36.4 g/dL 09/06/2024 21:59 [facility] RDW-CV 19.6(H) <14.2 % 09/06/2024 21:59 [facility] RDW-SD 66.4(H) <46.0 fl 09/06/2024 21:59 [facility] PLT 255 141 - 377 K/cmm 09/06/2024 21:59 [facility] MPV 11.9 9.5 - 12.7 fL 09/06/2024 21:59 [facility] Blood VENOUS BLOOD / Unknown Venipuncture / Unknown 09/06/2024 6:33 EST 09/06/2024 6:33 EST us Carlota Jin MD HEMATOLOGY & PF4 ORDERABL ES Final Result [facility] [address] [place] [address] documented in this encounter Visit Diagnoses Diagnosis ESRD (end stage renal disease) ([facility])- Primary End stage renal disease Hypoalbuminemia Other disorders of plasma protein metabolism Secondary hyperparathyroidism ([facility]) Secondary hyperparathyroidism (of renal origin) documented in this encounter Administered Medications Inactive Administered Medications - up to 3 most recent administrations Medication Order MAR Action Action Date Dose Rate Site calcium carbonate (TUMS) tablet 500 mg (200 mg elemental calcium) 2 Tablet 2 Tablet, oral, ONCE IN DIALYSIS, 1 dose, On Wed09/06/24 at 0645, Routine, DialysisIndications:ESRD (end stage renal disease) ([facility]),Secondary hyperparathyroidism ([facility]) Given 09/06/2024 6:34 EST 2 Tablets epoetin ken (EPOGEN) 20,000 unit/2 mL injection 9,000 Units 9,000 Units, intravenous, ONCE IN DIALYSIS, 1 dose, On Wed09/06/24 at 0645, Routine, DialysisIndications:ESRD (end stage renal disease) ([facility]) Given 09/06/2024 6:44 EST 9,000 Units heparin injection 3,000 Units 3,000 Units, intravenous, ONCE IN DIALYSIS, 1 dose, On Wed09/06/24 at 0645, Routine, Dialysis, Now x1 bolus 1500 units to be given at the beginning of dialysis 500 units/hour to be given over the course of dialysis (3000 units total). Stop 1 hour prior to end of treatment. To be administered per Policy [id number].Indications:ESRD (end stage renal disease) ([facility]) Given 09/06/2024 6:44 EST 3,000 Units LiquaCel liquid protein liquid 30 mL 30 mL, oral, ONCE IN DIALYSIS, 1 dose, On Wed09/06/24 at 0645, Patient's flavor preference: either, Routine, DialysisIndications:ESRD (end stage renal disease) ([facility]),Hypoalbuminemia Given 09/06/2024 6:33 EST 30 mL documented in this encounter Orders Dialysis Count Last Ordered Date First Orde red Date HEMODIALYSIS 1 09/06/2024 documented in this encounter Care Teams Copyright Expert Relationship Specialty Start Date End Date Ken Greer MD [address] [place] [address] PCP - General 07/07/23 Kiel Powers Business Functional Analyst Nephrology 05/31/24 documented as of this encounter
--- OUTSIDE RECORDS SUMMARY | 2024-12-05 11:57 | XMS_ITS | Encounter Summary ---
Author Organization [facility] Address [address] [place] [address] Care Team Providers Care Plate And Frame Filter Operator Name Role Phone Ken Greer MD Primary Care Provider [phone] Kiel oPwers Unavailable Unavailable Reason for Visit * Episode Based Medications (Routine) - New Request Specialty Diagnoses / Procedures Referred By Nader gardiner Referred To Contact Diagnoses ESRD (end stage renal disease) ([facility]) Carlota Jin MD [address] [place] [address], [facility] [address] [place] [address] Phone: tel: fax: [facility] - [place] [address] [place] [address] Phone: tel: fax: Referral ID Status Reason Start Date Expiration Date V isits Requested Visits Authorized [id number] New Request 03/17/2024 1 1 Encounter Details Date Type Department Care Team (Latest Contact Info) Description 09/13/2024 6:45 EST Treatment [facility] [address] [place] [id number] Carlota Jin MD [address] [place] [address], [facility] [address] [place] [address] ESRD (end stage renal disease) ([facility]) (Primary Dx); Hypoalbuminemia; Secondary hyperparathyroidism ([facility] Social History Tobacco Use Types Packs/Day Years Used Date Smoking Tobacco: Every Day Cigarettes 1 26.1 Started: 1998 Smokeless Tobacco: Never Alcohol Use Standard Drinks/Week Comments Yes 0 (1 standard drink = 0.6 oz pur e alcohol) Socially [facility] Utilities Answer Date Recorded In the past [...] any time in the past 12 m [facility], were you homeless or living [...] the past 12 months has th e [employer], gas, oil, or water [employer] threatened to shut off services in your [...] - Temperature - - Respiratory Rate 16 09/13/2024 0632 EST Oxygen Saturation - - Inhaled Oxygen Concentration - - Weight 78.3 kg (172 lb 9.9 oz) 09/13/[address] Height - - Body [...] Flowsheet Note - Marcela Cox RN - 09/13/2024 1433 EST 09/13/24 1050 Post-Hemodialysis Assessment Total Blood Processed (L) 90.03 Liters On Line Clearance: spKt/V 1.51 spKt/V Dialyzer Clearance Lightly streaked Treatment UFR (ml:kg:hr) 10.73 ml:kg:hr Fluid Removed (L) 3.3 L Post-Dialysis Scale Weight 94 kg (207 lb 3.7 oz) Wheelchair Weight 19 kg (41 lb 14.2 oz) Prosthesis Weight 0 kg (0 lb) Post-Treatment Weight (kg) 75 Treatment Weight Change (kg) 3.3 kg Day Target Weight (kg) 75.5 Post Sitting/Lying BP 173/84 Post Sitting/Lying pulse 64 Temp 36.3 ??C (97.3 ??F) Temp src Temporal Minutes Short -246 Post access assessment AVF/AFG Hemostasis achieved Yes Note 10 mintue hold both sites Orientation Alert and Oriented x3 Yes Time Yes Place Yes Person Yes Cooperative Yes Disoriented No Discharge Ambulation Methods Departs via w/c Wrap up items Patient Response to Treatment Tolerated tx well. Removed 3.3L UF goal without difficulty. Comments No issues during tx, no concerns voiced post tx. * Dialysis Rounding - Paris Quintanilla NP - 09/13/2024 0645 EST Dialysis Provider's Routine Assessment Gerson Bruner was seen and examined as appropriate during Dialysis. Pertinent lab results were reviewed. Changes since last visit: Pre-dialysis blood pressures running a bit higher. Came down to 109 from >190 mmHg systolic today. Changes to current prescriptions/orders: None Patient doesn't think there have been any changes to blood pressure medications; his helps himkeep them organized. He has a mild headache at the end of dialysis today but not as bad as other days. Patient declined a COVID vaccine. He has had COVID twice and would prefer to get it again rather than get the vaccine. This provider reminded him that he is at high risk of complications for COVID ifhe contracts it but patient remained resolute declining the Covid vaccine. Paris Quintanilla NP documented in this encounter Plan of Treatment Upcoming Encounters Date Type Department Care Team (Late st Contact Info) Description 12/06/2024 6:45 EST Treatment [facility] - [place] [address] [place], [place] [phone] Carlota Jin MD 1 [facility], [address] [address] 12/08/2024 6:45 EST Treatment [facility] [address] [place] [id number] Carlota Jin MD 1 [facility], [facility] [address] [place] [address] 12/11/2024 6:45 EST Treatment [facility] [address] [place] [id number] Carlota Jin MD 1 [facility], [facility] [address] [place] [address] 12/13/2024 6:45 EST Treatment [facility] [place] [address] [place], [place] [phone] Carlota Jin MD 1 [facility], [facility] [address] [place] [phone] 12/15/2024 6:45 EST Treatment [facility] - [place] [address] [place], [place] [phone] Carlota Jin MD 1 [facility], [facility] [address] [place] [phone] 12/18/2024 6:45 EST Treatment [facility] [address] [place], [place] [phone] Carlota Jin MD 1 [facility], [facility] [address] [place] [phone] 12/20/2024 6:45 EST Treatment [facility] [address] [place], [place] [id number] Carlota Jin MD 1 [facility], [facility] [address] [place] [phone] 12/22/2024 6:45 EST Treatment [facility] [place] [address] [place], [place] [phone] Carlota Jin MD 1 [facility], [facility] [address] [place] [phone] 12/25/2024 6:45 EST Treatment [facility] [address] [place], [place] [phone] Carlota Jin MD 1 [facility], [facility] [address] [place] [phone] 12/27/2024 6:45 EST Treatment [facility] - [place] [address] [place], [place] [id number] Carlota Jin MD 1 [facility], [facility] [address] [place] [phone] 12/29/2024 6:45 EST Treatment [facility] [place] [address] [place] [address] Carlota Jin MD 1 [facility], [facility] [address] [place] [phone] 01/01/2025 6:45 EDT Treatment [facility] [place] [address] [place], [place] [phone] Carlota Jin MD 1 [facility], [facility] [address] [place] [phone] 01/03/2025 6:45 EDT Treatment [facility] - [place] [address] [place] [address] Carlota Jin MD 1 [facility], [facility] [address] [place] [phone] 01/05/2025 6:45 EDT Treatment [facility] - [place] [address] [place], [place] [id number] Carlota Jin MD 1 [facility], [facility] [address] [place] [phone] 01/08/2025 6:45 EDT Treatment [facility] - [place] [address] [place], [place] [id number] Carlota Jin MD 1 [facility], [facility] [address] [place] [phone] 01/10/2025 6:45 EDT Treatment [facility] [place] [address] [place] [address] Carlota Jin MD 1 [facility], [address] [phone] 01/12/2025 6:45 EDT Treatment [facility] - [place] [address] [place], [place] [id number] Carlota Jin MD 1 [facility], [facility] [address] [place] [phone] 01/15/2025 6:45 EDT Treatment [facility] - [place] [address] [place], [place] [id number] Carlota Jin MD 1 [facility], [facility] [address] [place] [phone] 01/17/2025 6:45 EDT Treatment [facility] - [place] [address] [place], [place] [phone] Carlota Jin MD 1 [facility], [facility] [address] [place] [phone] 01/19/2025 6:45 EDT Treatment [facility] - [place] [address] [place], [place] [id number] Carlota Jin MD 1 [facility], [facility] [address] [place] [phone] 01/22/2025 6:45 EDT Treatment [facility] - [place] [address] [place], [place] [id number] Carlota Jin MD 1 [facility], [address] [phone] 01/24/2025 6:45 EDT Treatment [facility] - [place] [address] [place], [place] [id number] Carlota Jin MD 1 [facility], [address] [phone] 01/26/2025 6:45 EDT Treatment [facility] - [place] [address] [place], [place] [id number] Carlota Jin MD [address] [phone] 01/29/2025 6:45 EDT Treatment [facility] - [place] [address] [place], [place] [id number] Carlota Jin MD [address] [phone] 01/31/2025 6:45 EDT Treatment [facility] - [place] [address] [place], [place] [id number] Carlota Jin MD 1 [facility], [facility] [address] [place] [phone] 02/02/2025 6:45 EDT Treatment [facility] - [place] [address] [place], [place] [id number] Carlota Jin MD 1 [facility], [facility] [address] [place] [phone] 02/05/2025 6:45 EDT Treatment [facility] - [place] [address] [place], [place] [phone] Carlota Jin MD 1 [facility], [facility] [address] [place] [phone] 02/07/2025 6:45 EDT Treatment [facility] - [place] [address] [place], [place] [phone] Carlota Jin MD 1 [facility], [address] [phone] 02/09/2025 6:45 EDT Treatment [facility] - [place] [address] [place] [address] Calrota Jin MD 1 [facility], [facility] [address] [place] [phone] 02/12/2025 6:45 EDT Treatment [facility] [place] [address] [place], [place] [phone] Carlota Jin MD 1 [facility], [facility] [address] [place] [phone] 02/14/2025 6:45 EDT Treatment [facility] - [place] [address] [place], [place] [id number] Carlota Jin MD 1 [facility], [facility] [address] [place] [phone] 02/16/2025 6:45 EDT Treatment [facility] - [place] [address] [place], [place] [id number] Carlota Jin MD 1 [facility], [facility] [address] [place] [phone] 02/19/2025 6:45 EDT Treatment [facility] - [place] [address] [place], [place] [id number] Carlota Jin MD 1 [facility], [facility] [address] [place] [phone] 02/21/2025 6:45 EDT Treatment [facility] [address] [place], [place] [phone] Carlota Jin MD 1 [facility], [facility] [address] [place] [phone] documented as of this encounter Procedures Procedure Name Priority Date/Time Associated Diagnosis Comments COMPLETE BLOOD COUNT Routine 09/13/2024 6:37 EST ESRD (end stage renal disease) ([facility]) HEMODIALYSIS Routine 09/13/2024 6:32 EST ESRD (end stage renal disease) ([facility]) documented in this encounter Results * (ABNORMAL) COMPLETE BLOOD COUNT (09/13/2024 6:37 EST) WBC 8.31 4.00 - 10.40 K/cmm 09/13/2024 21:56 [facility] RBC 4.17(L) 4.36 - 5.78 M/cmm 09/13/2024 21:56 [facility] Hemoglobin 12.1(L) 13.8 - 17.3 g/dL 09/13/2024 21:56 [facility] HCT 38.2(L) 39.5 - 50.2 % 09/13/2024 21:56 [facility] MCV 92 81 - 95 fL 09/13/2024 21:56 [facility] MCH 29.0 27.6 - 33.0 pg 09/13/2024 21:56 [facility] MCHC 31.7(L) 32.8 - 36.4 g/dL 09/13/2024 21:56 [facility] RDW-CV 18.8(H) <14.2 % 09/13/2024 21:56 [facility] RDW-SD 63.5(H) <46.0 fl 09/13/2024 21:56 [facility] PLT 229 141 - 377 K/cmm 09/13/2024 21:56 [facility] MPV 11.5 9.5 - 12.7 fL 09/13/2024 21:56 [facility] Blood VENOUS BLOOD / Unknown Venipuncture / Unknown 09/13/2024 6:37 EST 09/13/2024 6:37 EST us Carlota Jin MD HEMATOLOGY & PF4 ORDERABL ES Final Result [facility] [address] [place] [address] documented in this encounter Visit Diagnoses Diagnosis ESRD (end stage renal disease) ([facility])- Primary End stage renal disease Hypoalbuminemia Other disorders of plasma protein metabolism Secondary hyperparathyroidism ([facility]) Secondary hyperparathyroidism (of renal origin) documented in this encounter Administered Medications Inactive Administered Medications - up to 3 most recent administrations Medication Order MAR Action Action Date Dose Rate Site calcium carbonate (TUMS) tablet 500 mg (200 mg elemental calcium) 2 Tablet 2 Tablet, oral, ONCE IN DIALYSIS, 1 dose, On Wed09/13/24 at 0700, Routine, DialysisIndications:ESRD (end stage renal disease) ([facility]),Secondary hyperparathyroidism ([facility]) Given 09/13/2024 6:56 EST 2 Tablets epoetin ken (EPOGEN) 20,000 unit/2 mL injection 6,500 Units 6,500 Units, intravenous, ONCE IN DIALYSIS, 1 dose, On Wed09/13/24 at 0700, Routine, DialysisIndications:ESRD (end stage renal disease) ([facility]) Given 09/13/2024 6:56 EST 6,500 Units heparin injection 3,000 Units 3,000 Units, intravenous, ONCE IN DIALYSIS, 1 dose, On Wed09/13/24 at 0700, Routine, Dialysis, Now x1 bolus 1500 units to be given at the beginning of dialysis 500 units/hour to be given over the course of dialysis (3000 units total). Stop 1 hour prior to end of treatment. To be administered per Policy [id number].Indications:ESRD (end stage renal disease) ([facility]) Given 09/13/2024 6:56 EST 3,000 Units LiquaCel liquid protein liquid 30 mL 30 mL, oral, ONCE IN DIALYSIS, 1 dose, On Wed09/13/24 at 0700, Patient's flavor preference: either, Routine, DialysisIndications:ESRD (end stage renal disease) ([facility]),Hypoalbuminemia Given 09/13/2024 6:56 EST 30 mL documented in this encounter Orders Dialysis Count Last Ordered Date First Orde red Date HEMODIALYSIS 1 09/13/2024 documented in this encounter Care Teams Plate And Frame Filter Operator Relationship Specialty Start Date End Date Ken Greer MD [address] [facility] [place] [address] PCP - General 07/07/23 Kiel Powers Bacon Stringer Nephrology 05/31/24 documented as of this encounter
--- OUTSIDE RECORDS SUMMARY | 2024-12-05 11:57 | XMS_ITS | Encounter Summary ---
Author Organization [facility] Address [address] [place] [address] Care Team Providers Care Utility System Repairer Name Role Phone Ken Greer MD Primary Care Provider [phone] Kiel Powers Unavailable Unavailable Reason for Visit * Episode Based Medications (Routine) - New Request Specialty Diagnoses / Procedures Referred By Nader gardiner Referred To Contact Diagnoses ESRD (end stage renal disease) ([facility]) Carlota Jin MD [address] [place] [address], [facility] [address] [place] [address] Phone: tel: fax: [facility] [place] [address] [place] [address] Phone: tel: fax: Referral ID Status Reason Start Date Expiration Date V isits Requested Visits Authorized [id number] New Request 03/17/2024 1 1 Encounter Details Date Type Department Care Team (Latest Contact Info) Description 08/30/2024 6:45 EST Treatment [facility] [address] [place] [id number] Carlota Jin MD [address] [place] [address], [facility] [address] [place] [address] ESRD (end stage renal disease) ([facility]) (Primary Dx); Hypoalbuminemia; Secondary hyperparathyroidism ([facility]) Social History Tobacco Use Types Packs/Day Years Used Date Smoking Tobacco: Every Day Cigarettes 1 26.1 Started: 1998 Smokeless Tobacco: Never Alcohol Use Standard Drinks/Week Comments Yes 0 (1 standard drink = 0.6 oz pur e alcohol) Socially [facility] Utilities Answer Date Recorded In [...] were you homeless or living in a long-term (including now)? No 05/30/2024 Interpersonal Safety Answer [...] the past 12 months has th e Domain [employer], gas, oil, or water [employer] threatened to shut off services in your [...] - Temperature - - Respiratory Rate 16 08/30/2024 0635 EST Oxygen Saturation - - Inhaled Oxygen Concentration - - Weight 81.6 kg (179 lb 14.3 oz) 08/30/2024 0629 EST Height - - Body Mass Index 25.81 07/20/2024 1359 EDT documented in this encounter [...] Flowsheet Note - Marcela Cox RN - 08/30/2024 1122 EST 08/30/24 1055 Post-Hemodialysis Assessment Total Blood Processed (L) 90.59 Liters On Line Clearance: spKt/V 1.51 spKt/V Dialyzer Clearance Lightly streaked Treatment UFR (ml:kg:hr) 13.29 ml:kg:hr Critline refill Not done Fluid Removed (L) 4.5 L Post-Dialysis Scale Weight 108.9 kg (240 lb 1.3 oz) Wheelchair Weight 31.5 kg (69 lb 7.1 oz) Prosthesis Weight 0 kg (0 lb) Post-Treatment Weight (kg) 77.4 Treatment Weight Change (kg) 4.2 kg Day Target Weight (kg) 77.6 Post Sitting/Lying BP 171/85 Post Sitting/Lying pulse 65 Temp 36.7 ??C (98.1 ??F) Temp src Temporal Minutes Short -245 [...] Contact Info) Description 12/06/2024 6:45 EST Treatment [facility] [place] [address] [place], [place] [id number] Carlota Jin MD 1 [facility], [facility] [address] [place] [phone] 12/08/2024 6:45 EST Treatment [facility] [place] [address] [place], [place] [id number] Carlota Jin MD [address] [place] [phone] 12/11/2024 6:45 EST Treatment [facility] [place] [address] [place], [place] [id number] Carlota Jin MD [address] [phone] 12/13/2024 6:45 EST Treatment [facility] [place] [address] [place], [place] [id number] Carlota Jin MD [address] [place] [phone] 12/15/2024 6:45 EST Treatment [facility] [place] [address] [place], [place] [id number] Carlota Jin MD [address] [place] [phone] 12/18/2024 6:45 EST Treatment [facility] [place] [address] [place], [place] [id number] Carlota Jin MD 1 [facility], [facility] [address] [place] [phone] 12/20/2024 6:45 EST Treatment [facility] [place] [address] [place], [place] [id number] Carlota Jin MD 1 [facility], [facility] [address] [place] [phone] 12/22/2024 6:45 EST Treatment [facility] [place] [address] [place], [place] [id number] Carlota Jin MD [address] [place] [address], [facility] [address] [place] [phone] 12/25/2024 6:45 EST Treatment [facility] [place] [address] [place], [place] [id number] Carlota Jin MD 1 [facility], [facility] [address] [place] [phone] 12/27/2024 6:45 EST Treatment [facility] [place] [address] [place], [place] [id number] Carlota Jin MD 1 [facility], [facility] [address] [place] [phone] 12/29/2024 6:45 EST Treatment [facility] [place] [address] [place], [place] [id number] Carlota Jin MD 1 [facility], [facility] [address] [place] [phone] 01/01/2025 6:45 EDT Treatment [facility] [place] [address] [place], [place] [id number] Carlota Jin MD 1 [facility], [facility] [address] [place] [phone] 01/03/2025 6:45 EDT Treatment [facility] [place] [address] [place], [place] [id number] Carlota Jin MD 1 [facility], [facility] [address] [place] [phone] 01/05/2025 6:45 EDT Treatment [facility] [place] [address] [place], [place] [id number] Carlota Jin MD 1 [facility], [facility] [address] [place] [phone] 01/08/2025 6:45 EDT Treatment [facility] [place] [address] [place], [place] [id number] Carlota Jin MD 1 [facility], [facility] [address] [place] [phone] 01/10/2025 6:45 EDT Treatment [facility] [place] [address] [place], [place] [id number] Carlota Jin MD 1 [facility], [facility] [address] [place] [phone] 01/12/2025 6:45 EDT Treatment [facility] [place] [address] [place], [place] [id number] Carlota Jin MD 1 [facility], [facility] [address] [place] [phone] 01/15/2025 6:45 EDT Treatment [facility] [place] [address] [place], [place] [id number] Carlota Jin MD 1 [facility], [facility] [address] [place] [phone] 01/17/2025 6:45 EDT Treatment [facility] [place] [address] [place], [place] [id number] Carlota Jin MD 1 [facility], [address] [phone] 01/19/2025 6:45 EDT Treatment [facility] [place] [address] [place], [place] [id number] Carlota Jin MD 1 [facility], [facility] [address] [place] [phone] 01/22/2025 6:45 EDT Treatment [facility] [place] [address] [place], [place] [id number] Carltoa Jin MD 1 [facility], [facility] [address] [place] [phone] 01/24/2025 6:45 EDT Treatment [facility] [place] [address] [place], [place] [id number] Carlota Jin MD 1 [facility], [facility] [address] [place] [phone] 01/26/2025 6:45 EDT Treatment [facility] [place] [address] [place] [address] Carlota Jin MD 1 [facility], [facility] [address] [place] [phone] 01/29/2025 6:45 EDT Treatment [facility] [place] [address] [place], [place] [id number] Carlota Jin MD 1 [facility], [address] [phone] 01/31/2025 6:45 EDT Treatment [facility] [place] [address] [place], [place] [id number] Carlota Jin MD 1 [facility], [address] [phone] 02/02/2025 6:45 EDT Treatment [facility] [place] [address] [place], [place] [id number] Carlota Jin MD 1 [facility], [address] [phone] 02/05/2025 6:45 EDT Treatment [facility] [place] [address] [place], [place] [id number] Carlota Jin MD 1 [facility], [facility] 2 [place] [phone] 02/07/2025 6:45 EDT Treatment [facility] [place] [address] [place], [place] [id number] Carlota Jin MD 1 [facility], [facility] 2 [place] [phone] 02/09/2025 6:45 EDT Treatment [facility] [place] [address] [place], [place] [id number] Carlota Jin MD 1 [facility], [facility] [address] [place] [phone] 02/12/2025 6:45 EDT Treatment [facility] [place] [address] [place], [place] [address] [phone] Carlota Jin MD 1 [facility], [facility] [address] [place] [phone] 02/14/2025 6:45 EDT Treatment [facility] [place] [address] [place] [address] Carlota Jin MD 1 [facility], [facility] 2 [place] [phone] 02/16/2025 6:45 EDT Treatment [facility] [place] [address] [place], [place] [id number] Carlota Jin MD 1 [facility], [facility] 2 [place] [phone] 02/19/2025 6:45 EDT Treatment [facility] [place] [address] [place], [place] [id number] Carlota Jin MD 1 [facility] [address] [place] [phone] 02/21/2025 6:45 EDT Treatment [facility] [place] [address] [place], [place] [id number] Carlota Jin MD 1 [facility] [address] [place] [phone] documented as of this encounter Procedures Procedure Name Priority Date/Time Associated Diagnosis Comments COMPLETE BLOOD COUNT Routine 08/30/2024 6:42 EST ESRD (end stage renal disease) ([facility]) HEMODIALYSIS Routine 08/30/2024 6:35 EST ESRD (end stage renal disease) ([facility]) documented in this encounter Results * (ABNORMAL) COMPLETE BLOOD COUNT (08/30/2024 6:42 EST) WBC 7.37 4.00 - 10.40 K/cmm 08/30/2024 22:44 [facility] RBC 3.62(L) 4.36 - 5.78 M/cmm 08/30/2024 22:44 [facility] Hemoglobin 10.3(L) 13.8 - 17.3 g/dL 08/30/2024 22:44 [facility] HCT 32.6(L) 39.5 - 50.2 % 08/30/2024 22:44 [facility] MCV 90 81 - 95 fL 08/30/2024 22:44 [facility] MCH 28.5 27.6 - 33.0 pg 08/30/2024 22:44 [facility] MCHC 31.6(L) 32.8 - 36.4 g/dL 08/30/2024 22:44 [facility] RDW-CV 19.2(H) <14.2 % 08/30/2024 22:44 EST [facility] RDW-SD 63.9(H) <46.0 fl 08/30/2024 22:44 EST [facility] PLT 252 141 - 377 K/cmm 08/30/2024 22:44 EST [facility] MPV 12.0 9.5 - 12.7 fL 08/30/2024 22:44 EST [facility] Blood VENOUS BLOOD / Unknown Venipuncture / Unknown 08/30/2024 6:42 EST 08/30/2024 6:42 EST us Carlota Jin MD HEMATOLOGY & PF4 ORDERABL ES Final Result [facility] [address] [place] [address] documented in this encounter Visit Diagnoses Diagnosis ESRD (end stage renal disease) ([facility])- Primary End stage renal disease Hypoalbuminemia Other disorders of plasma protein metabolism Secondary hyperparathyroidism ([facility]) Secondary hyperparathyroidism (of renal origin) documented in this encounter Administered Medications Inactive Administered Medications - up to 3 most recent administrations Medication Order MAR Action Action Date Dose Rate Site calcium carbonate (TUMS) tablet 500 mg (200 mg elemental calcium) 2 Tablet 2 Tablet, oral, ONCE IN DIALYSIS, 1 dose, On Wed08/30/24 at 0700, Routine, DialysisIndications:ESRD (end stage renal disease) ([facility]),Secondary hyperparathyroidism ([facility]) Given 08/30/2024 6:59 EST 2 Tablets epoetin ken (EPOGEN) 20,000 unit/2 mL injection 9,000 Units 9,000 Units, intravenous, ONCE IN DIALYSIS, 1 dose, On Wed08/30/24 at 0700, Routine, DialysisIndications:ESRD (end stage renal disease) ([facility]) Given 08/30/2024 6:59 EST 9,000 Units heparin injection 3,000 Units 3,000 Units, intravenous, ONCE IN DIALYSIS, 1 dose, On Wed08/30/24 at 0700, Routine, Dialysis, Now x1 bolus 1500 units to be given at the beginning of dialysis 500 units/hour to be given over the course of dialysis (3000 units total). Stop 1 hour prior to end of treatment. To be administered per Policy [id number].Indications:ESRD (end stage renal disease) ([facility]) Given 08/30/2024 6:59 EST 3,000 Units LiquaCel liquid protein liquid 30 mL 30 mL, oral, ONCE IN DIALYSIS, 1 dose, On Wed08/30/24 at 0700, Patient's flavor preference: either, Routine, DialysisIndications:ESRD (end stage renal disease) ([facility]),Hypoalbuminemia Given 08/30/2024 6:59 EST 30 mL documented in this encounter Orders Dialysis Count Last Ordered Date First Orde red Date HEMODIALYSIS 1 08/30/2024 documented in this encounter Care Teams Utility System Repairer Relationship Specialty Start Date End Date Ken Greer MD [address] [place] [address] PCP - General 07/07/23 Kiel Powers Life Skills Worker Nephrology 05/31/24 documented as of this encounter
--- OUTSIDE RECORDS SUMMARY | 2024-12-05 11:57 | XMS_ITS | Encounter Summary ---
Author Organization [facility] Address [address] [place] [address] Care Team Providers Care Microwave Radio Technician Name Role Phone Ken Greer MD Primary Care Provider [phone] Kiel Powers Unavailable Unavailable Reason for Visit * Episode Based Medications (Routine) - New Request Specialty Diagnoses / Procedures Referred By Nader gardiner Referred To Contact Diagnoses ESRD (end stage renal disease) ([facility]) Carlota Jin MD [address] [place] [address], [facility] [address] [place] [address] Phone: tel: fax: [facility] [place] [address] [place] [address] Phone: tel: fax: Referral ID Status Reason Start Date Expiration Date V isits Requested Visits Authorized [id number] New Request 03/17/2024 1 1 Encounter Details Date Type Department Care Team (Latest Contact Info) Description 09/04/2024 6:45 EST Treatment [facility] [address] [place] [id number] Carlota Jin MD [address] [place] [address], [facility] [address] [place] [phone] ESRD (end stage renal disease) ([facility]) (Primary Dx); Hypoalbuminemia; Secondary hyperparathyroidism [facility] Social History Tobacco Use Types Packs/Day Years Used Date Smoking Tobacco: Every Day Cigarettes 1 26.1 Started: 1998 Smokeless Tobacco: Never Alcohol Use Standard Drinks/Week Comments Yes 0 (1 standard drink = 0.6 oz pur e alcohol) Socially [facility] Utilities Answer Date Recorded In the [...] in the past [address] [facility], were you homeless or living in a fci (including now)? No 05/30/2024 Interpersonal Safety Answer Date Record ed How often does anyone, martin lyons family, hit, punch or physically hurt you? 05/30/2024 How often does anyone, martin lyosn family, insult, scream, curse or threaten to [...] the past 12 months has th e [employer], gas, oil, or water [employer] threatened to shut off services in your [...] - Temperature - - Respiratory Rate 16 09/04/2024 0625 EST Oxygen Saturation - - Inhaled Oxygen Concentration - - Weight 80.4 kg (177 lb 4 oz) 09/04/2024 0623 EST Height - - Body Mass [...] Flowsheet Note - Marcela Cox RN - 09/04/2024 1307 EST 09/04/24 1048 Post-Hemodialysis Assessment Total Blood Processed (L) 87.27 Liters On Line Clearance: spKt/V 1.45 spKt/V Dialyzer Clearance Lightly streaked Treatment UFR (ml:kg:hr) 12.67 ml:kg:hr Final Critline Profile (%/hr) -1.11 Final Profile Profile A Critline refill Negative (33.8-33.4) Fluid Removed (L) 4.3 L Post-Dialysis Scale Weight 95.4 kg (210 lb 5.1 oz) Wheelchair Weight 19 kg (41 lb 14.2 oz) Prosthesis Weight 0 kg (0 lb) Post-Treatment Weight (kg) 76.4 Treatment Weight Change (kg) 4 kg Day Target Weight (kg) 76.6 Post Sitting/Lying BP 183/74 Post Sitting/Lying pulse 54 Temp 36.7 ??C (98.1 ??F) Temp src Temporal Minutes Short -248 [...] Contact Info) Description 12/06/2024 6:45 EST Treatment [facility] [place] [address] [place], [place] [phone] Carlota Jin MD 1 [facility], [facility] [address] [place] [phone] 12/08/2024 6:45 EST Treatment [facility] [place] [address] [place], [place] [id number] Carlota Jin MD [address] [place] [phone] 12/11/2024 6:45 EST Treatment [facility] [place] [address] [place], [place] [phone] Carlota Jin MD [address] [place] [phone] 12/13/2024 6:45 EST Treatment [facility] [place] [address] [place], [place] [id number] Carlota Jin MD [address] [place] [phone] 12/15/2024 6:45 EST Treatment [facility] [place] [address] [place], [place] [id number] Carlota Jin MD [address] [place] [phone] 12/18/2024 6:45 EST Treatment [facility] [place] [address] [place], [place] [phone] Carlota Jin MD 1 [facility], [facility] 2 [place] [phone] 12/20/2024 6:45 EST Treatment [facility] [place] [address] [place], [place] [id number] Carlota Jin MD 1 [facility], [facility] [address] [place] [phone] 12/22/2024 6:45 EST Treatment [facility] [place] [address] [place] [address] Carlota Jin MD 1 [facility], [facility] [address] [place] [phone] 12/25/2024 6:45 EST Treatment [facility] [place] [address] [place], [place] [phone] Carlota Jin MD 1 [facility], [facility] [address] [place] [phone] 12/27/2024 6:45 EST Treatment [facility] [place] [address] [place], [place] [phone] Carlota Jin MD 1 [facility], [facility] [address] [place] [phone] 12/29/2024 6:45 EST Treatment [facility] [address] [place], [place] [phone] Carlota Jin MD [facility], [facility] [address] [place] [phone] 01/01/2025 6:45 EDT Treatment [facility] [place] [address] [place], [place] [phone] Carlota Jin MD [facility], [facility] [address] [place] [phone] 01/03/2025 6:45 EDT Treatment [facility] [place] [address] [place], [place] [id number] Carlota Jin MD 1 [facility], [facility] [address] [place] [phone] 01/05/2025 6:45 EDT Treatment [facility] [place] [address] [place] [address] Carlota Jin MD 1 [facility], [facility] [address] [place] [phone] 01/08/2025 6:45 EDT Treatment [facility] [place] [address] [place] [address] Carlota Jin MD 1 [facility], [facility] [address] [place] [phone] 01/10/2025 6:45 EDT Treatment [facility] [place] [address] [place], [place] [phone] Carlota Jin MD 1 [facility], [facility] [address] [place] [phone] 01/12/2025 6:45 EDT Treatment [facility] [place] [address] [place], [place] [id number] Carlota Jin MD 1 [facility], [facility] 2 [place] [phone] 01/15/2025 6:45 EDT Treatment [facility] [place] [address] [place], [place] [id number] Carlota Jin MD 1 [facility], [facility] [address] [place] [phone] 01/17/2025 6:45 EDT Treatment [facility] [place] [address] [place], [place] [id number] Carlota Jin MD 1 [facility], [facility] [address] [place] [phone] 01/19/2025 6:45 EDT Treatment [facility] [place] [address] [place], [place] [id number] Carlota Jin MD 1 [facility], [facility] [address] [place] [phone] 01/22/2025 6:45 EDT Treatment [facility] [place] [address] [place], [place] [phone] Carlota Jin MD 1 [facility], [facility] [address] [place] [phone] 01/24/2025 6:45 EDT Treatment [facility] [place] [address] [place], [place] [id number] Carlota Jin MD 1 [facility], [facility] [address] [place] [phone] 01/26/2025 6:45 EDT Treatment [facility] [place] [address] [place] [address] Carlota Jin MD 1 [facility], [facility] [address] [place] [phone] 01/29/2025 6:45 EDT Treatment [facility] [place] [address] [place], [place] [id number] Carlota Jin MD 1 [facility], [address] [phone] 01/31/2025 6:45 EDT Treatment [facility] [place] [address] [place], [place] [id number] Carlota Jin MD 1 [facility], [address] [phone] 02/02/2025 6:45 EDT Treatment [facility] [place] [address] [place], [place] [id number] Carlota Jin MD 1 [facility], [facility] [address] [place] [phone] 02/05/2025 6:45 EDT Treatment [facility] [place] [address] [place], [place] [id number] Carlota Jin MD 1 [facility], [facility] [address] [place] [phone] 02/07/2025 6:45 EDT Treatment [facility] [place] [address] [place], [place] [id number] Carlota Jin MD 1 [facility], [facility] [address] [place] [phone] 02/09/2025 6:45 EDT Treatment [facility] [place] [address] [place], [place] [id number] Carlota Jin MD 1 [facility], [facility] [address] [place] [phone] 02/12/2025 6:45 EDT Treatment [facility] [place] [address] [place], [place] [id number] Carlota Jin MD [address] [place] [address], [address] [phone] 02/14/2025 6:45 EDT Treatment [facility] [place] [address] [place], [place] [id number] Carlota Jin MD [address] [place] [address], [facility] [address] [place] [phone] 02/16/2025 6:45 EDT Treatment [facility] [place] [address] [place], [place] [id number] Carlota Jin MD 1 [facility], [facility] [address] [place] [phone] 02/19/2025 6:45 EDT Treatment [facility] [place] [address] [place] [id number] Carlota Jin MD 1 [facility], [facility] [address] [place] [phone] 02/21/2025 6:45 EDT Treatment [facility] [address] [place] [phone] Carlota Jin MD 1 [facility], [facility] [address] [place] [phone] documented as of this encounter Procedures Procedure Name Priority Date/Time Associated Diagnosis Comments HEMODIALYSIS Routine 09/04/2024 6:25 EST ESRD (end stage renal disease) ([facility]) documented in this encounter Visit Diagnoses Diagnosis ESRD (end stage renal disease) ([facility])- Primary End stage renal disease Hypoalbuminemia Other disorders of plasma protein metabolism Secondary hyperparathyroidism ([facility]) Secondary hyperparathyroidism (of renal origin) documented in this encounter Administered Medications Inactive Administered Medications - up to 3 most recent administrations Medication Order MAR Action Action Date Dose Rate Site calcium carbonate (TUMS) tablet 500 mg (200 mg elemental calcium) 2 Tablet 2 Tablet, oral, ONCE IN DIALYSIS, 1 dose, On Wed09/04/24 at 0645, Routine, DialysisIndications:ESRD (end stage renal disease) ([facility]),Secondary hyperparathyroidism ([facility]) Given 09/04/2024 6:34 EST 2 Tablets epoetin ken (EPOGEN) 20,000 unit/2 mL injection 9,000 Units 9,000 Units, intravenous, ONCE IN DIALYSIS, 1 dose, On Wed09/04/24 at 0645, Routine, DialysisIndications:ESRD (end stage renal disease) ([facility]) Given 09/04/2024 7:12 EST 9,000 Units heparin injection 3,000 Units 3,000 Units, intravenous, ONCE IN DIALYSIS, 1 dose, On Wed09/04/24 at 0645, Routine, Dialysis, Now x1 bolus 1500 units to be given at the beginning of dialysis 500 units/hour to be given over the course of dialysis (3000 units total). Stop 1 hour prior to end of treatment. To be administered per Policy [id number].Indications:ESRD (end stage renal disease) ([facility]) Given 09/04/2024 7:12 EST 3,000 Units iron sucrose (VENOFER) injection 200 mg 200 mg, intravenous, ONCE IN DIALYSIS, 1 dose, On Wed09/04/24 at 0645, Routine, DialysisIndications:ESRD (end stage renal disease) ([facility]) Given 09/04/2024 7:12 EST 200 mg LiquaCel liquid protein liquid 30 mL 30 mL, oral, ONCE IN DIALYSIS, 1 dose, On Wed09/04/24 at 0645, Patient's flavor preference: either, Routine, DialysisIndications:ESRD (end stage renal disease) ([facility]),Hypoalbuminemia Given 09/04/2024 6:35 EST 30 mL documented in this encounter Orders Dialysis Count Last Ordered Date First Orde red Date HEMODIALYSIS 1 09/04/2024 documented in this encounter Care Teams Microwave Radio Technician Relationship Specialty Start Date End Date Ken Greer MD [employer] [place] [address] PCP - General 07/07/23 Kiel Powers Molding Supervisor Nephrology 05/31/24 documented as of this encounter
--- OUTSIDE RECORDS SUMMARY | 2024-12-05 11:57 | XMS_ITS | Encounter Summary ---
Author Organization [facility] Address [address] [place] [address] Care Team Providers Care Renewable Energy Engineer Name Role Phone Ken Greer MD Primary Care Provider [phone] Kiel Powers Unavailable Unavailable Reason for Visit * Episode Based Medications (Routine) - New Request Specialty Diagnoses / Procedures Referred By Nader gardiner Referred To Contact Diagnoses ESRD (end stage renal disease) ([facility]) Carlota Jin MD [address] [place] [address], [facility] [address] [place] [address] Phone: tel: fax: [facility] [place] [address] [place] [address] Phone: tel: fax: Referral ID Status Reason Start Date Expiration Date V isits Requested Visits Authorized [id number] New Request 03/17/2024 1 1 Encounter Details Date Type Department Care Team (Latest Contact Info) Description 09/15/2024 6:45 EST Treatment [facility] [address] [place] [id number] Carlota Jin MD [address] [place] [address], [facility] [address] [place] [address] ESRD (end stage renal disease) ([facility]) (Primary Dx); Hypoalbuminemia; Secondary [facility]parathy[facility] Social History Tobacco Use Types Packs/Day Years Used Date Smoking Tobacco: Every Day Cigarettes 1 26.1 Started: 1998 Smokeless Tobacco: Never Alcohol Use Standard Drinks/Week Comments Yes 0 (1 standard drink = 0.6 oz pur e alcohol) Socially [facility] Utilities Answer Date Recorded In the past [...] time in the past 12 m [facility], were you homeless or living in [...] the past 12 months has th e [employer], gas, oil, or water [employer] threatened to shut off services in your [...] - Temperature - - Respiratory Rate 16 09/15/2024 0616 EST Oxygen Saturation - - Inhaled Oxygen Concentration - - Weight 78.1 kg (172 lb 2.9 oz) 09/15/[address] Height - - Body Mass Index 24.71 07/20/2024 1359 EDT documented in this encounter [...] Flowsheet Note - Marcela Cox RN - 09/15/2024 1355 EST 09/15/24 1041 Post-Hemodialysis Assessment Total Blood Processed (L) 89.1 Liters On Line Clearance: spKt/V 1.49 spKt/V Dialyzer Clearance Lightly streaked Treatment UFR (ml:kg:hr) 10.08 ml:kg:hr Final Critline Profile (%/hr) 0.12 Final Profile Profile A Critline refill Not done Fluid Removed (L) 3.1 L Post-Dialysis Scale Weight 94 kg (207 lb 3.7 oz) Wheelchair Weight 19 kg (41 lb 14.2 oz) Prosthesis Weight 0 kg (0 lb) Post-Treatment Weight (kg) 75 Treatment Weight Change (kg) 3.1 kg Day Target Weight (kg) 75.5 Post Sitting/Lying BP 178/86 Post Sitting/Lying pulse 65 Temp 36.5 ??C (97.7 ??F) Temp src Temporal Minutes Short -246 Post access assessment AVF/AFG Hemostasis achieved Yes Note pt held for 10 minutes with blue clamps Orientation Alert and Oriented x3 Yes Time Yes Place Yes Person Yes Cooperative Yes Disoriented No Discharge Ambulation Methods Departs via w/c Wrap up items Patient Response to Treatment Tolerated tx well. Removed 3.1L UF goal without difficulty. Comments No issues during tx, no concerns voiced post tx. documented in this encounter Plan of Treatment Upcoming Encounters Date Type Department Care Team (Late st Contact Info) Description 12/06/2024 6:45 EST Treatment [facility] [place] [address] [place], [place] [phone] Carlota Jin MD 1 [facility], [facility] [address] [place] [phone] 12/08/2024 6:45 EST Treatment [facility] [address] [place], [place] [phone] Carlota Jin MD [address] [place] [phone] 12/11/2024 6:45 EST Treatment [facility] [address] [place], [place] [id number] Carlota Jin MD 1 [facility], [address] [phone] 12/13/2024 6:45 EST Treatment [facility] [address] [place], [place] [phone] Carlota Jin MD [address] [place] [address], [address] [phone] 12/15/2024 6:45 EST Treatment [facility] [address] [place], [place] [id number] Carlota Jin MD [address] [place] [phone] 12/18/2024 6:45 EST Treatment [facility] [place] [address] [place], [place] [id number] Carlota Jin MD 1 [facility], [facility] [address] [place] [phone] 12/20/2024 6:45 EST Treatment [facility] [place] [address] [place], [place] [id number] Carlota Jin MD 1 [facility], [facility] [address] [place] [phone] 12/22/2024 6:45 EST Treatment [facility] [place] [address] [place], [place] [id number] Carlota Jin MD 1 [facility], [facility] [address] [place] [phone] 12/25/2024 6:45 EST Treatment [facility] [place] [address] [place], [place] [id number] Carlota Jin MD 1 [facility], [facility] [address] [place] [phone] 12/27/2024 6:45 EST Treatment [facility] [place] [address] [place], [place] [phone] Carlota Jin MD 1 [facility], [facility] [address] [place] [phone] 12/29/2024 6:45 EST Treatment [facility] [place] [address] [place], [place] [phone] Carlota Jin MD [facility], [facility] [address] [place] [phone] 01/01/2025 6:45 EDT Treatment [facility] [place] [address] [place], [place] [address] Carlota Jin MD [address] [facility], [facility] [address] [place] [phone] 01/03/2025 6:45 EDT Treatment [facility] [place] [address] [place] [address] Carlota Jin MD 1 [facility], [facility] [address] [place] [phone] 01/05/2025 6:45 EDT Treatment [facility] [place] [address] [place] [address] Carlota Jin MD 1 [facility], [facility] [address] [place] [phone] 01/08/2025 6:45 EDT Treatment [facility] [place] [address] [place] [address] Carlota Jin MD 1 [facility], [facility] [address] [place] [phone] 01/10/2025 6:45 EDT Treatment [facility] [place] [address] [place], [place] [phone] Carlota Jin MD 1 [facility], [facility] [address] [place] [phone] 01/12/2025 6:45 EDT Treatment [facility] [place] [address] [place], [place] [id number] Carlota Jin MD 1 [facility], [facility] [address] [place] [phone] 01/15/2025 6:45 EDT Treatment [facility] [place] [address] [place], [place] [id number] Carlota Jin MD 1 [facility], [facility] [address] [place] [phone] 01/17/2025 6:45 EDT Treatment [facility] [place] [address] [place] [address] Carlota Jin MD 1 [facility], [address] [phone] 01/19/2025 6:45 EDT Treatment [facility] [place] [address] [place], [place] [phone] Carlota Jin MD 1 [facility], [facility] [address] [place] [phone] 01/22/2025 6:45 EDT Treatment [facility] [place] [address] [place], [place] [phone] Carlota Jin MD 1 [facility], [facility] [address] [place] [phone] 01/24/2025 6:45 EDT Treatment [facility] [place] [address] [place], [place] [phone] Carlota Jin MD 1 [facility], [facility] [address] [place] [phone] 01/26/2025 6:45 EDT Treatment [facility] [place] [address] [place] [address] [address] Jin MD [address] [facility], [facility] [address] [place] [phone] 01/29/2025 6:45 EDT Treatment [facility] [place] [address] [place] [address] Carlota Jin MD 1 [facility], [facility] [address] [place] [phone] 01/31/2025 6:45 EDT Treatment [facility] [place] [address] [place] [address] Carlota Jin MD 1 [facility], [facility] [address] [place] [phone] 02/02/2025 6:45 EDT Treatment [facility] [place] [address] [place] [address] Carlota Jin MD 1 [facility], [facility] [address] [place] [phone] 02/05/2025 6:45 EDT Treatment [facility] [place] [address] [place], [place] [phone] Carlota Jin MD [address] [facility], [facility] [address] [place] [phone] 02/07/2025 6:45 EDT Treatment [facility] [place] [address] [place], [place] [id number] Carlota Jin MD 1 [facility], [facility] [address] [place] [phone] 02/09/2025 6:45 EDT Treatment [facility] [place] [address] [place] [address] Carlota Jin MD 1 [facility], [facility] [address] [place] [phone] 02/12/2025 6:45 EDT Treatment [facility] [place] [address] [place], [place] [id number] Carlota Jin MD 1 [facility], [facility] [address] [place] [phone] 02/14/2025 6:45 EDT Treatment [facility] [place] [address] [place], [place] [id number] Carlota Jin MD 1 [facility], [facility] [address] [place] [phone] 02/16/2025 6:45 EDT Treatment [facility] [place] [address] [place], [place] [phone] Carlota Jin MD 1 [facility], [facility] [address] [place] [phone] 02/19/2025 6:45 EDT Treatment [facility] [place] [address] [place], [place] [address] Carlota Jin MD [address] [facility], [facility] [address] [place] [phone] 02/21/2025 6:45 EDT Treatment [facility] [address] [place], [place] [phone] Carlota Jin MD 1 [facility], [facility] [address] [place] [phone] documented as of this encounter Procedures Procedure Name Priority Date/Time Associated Diagnosis Comments HEMODIALYSIS Routine 09/15/2024 6:16 EST ESRD (end stage renal disease) ([facility]) documented in this encounter Visit Diagnoses Diagnosis ESRD (end stage renal disease) ([facility])- Primary End stage renal disease Hypoalbuminemia Other disorders of plasma protein metabolism Secondary hyperparathyroidism ([facility]) Secondary hyperparathyroidism (of renal origin) documented in this encounter Administered Medications Inactive Administered Medications - up to 3 most recent administrations Medication Order MAR Action Action Date Dose Rate Site calcium carbonate (TUMS) tablet 500 mg (200 mg elemental calcium) 2 Tablet 2 Tablet, oral, ONCE IN DIALYSIS, 1 dose, On Wed09/15/24 at 0645, Routine, DialysisIndications:ESRD (end stage renal disease) ([facility]),Secondary hyperparathyroidism ([facility]) Given 09/15/2024 6:30 EST 2 Tablets epoetin ken (EPOGEN) 20,000 unit/2 mL injection 6,500 Units 6,500 Units, intravenous, ONCE IN DIALYSIS, 1 dose, On Wed09/15/24 at 0645, Routine, DialysisIndications:ESRD (end stage renal disease) ([facility]) Given 09/15/2024 6:37 EST 6,500 Units heparin injection 3,000 Units 3,000 Units, intravenous, ONCE IN DIALYSIS, 1 dose, On Wed09/15/24 at 0645, Routine, Dialysis, Now x1 bolus 1500 units to be given at the beginning of dialysis 500 units/hour to be given over the course of dialysis (3000 units total). Stop 1 hour prior to end of treatment. To be administered per Policy [id number].Indications:ESRD (end stage renal disease) ([facility]) Given 09/15/2024 6:38 EST 3,000 Units LiquaCel liquid protein liquid 30 mL 30 mL, oral, ONCE IN DIALYSIS, 1 dose, On Wed09/15/24 at 0645, Patient's flavor preference: either, Routine, DialysisIndications:ESRD (end stage renal disease) ([facility]),Hypoalbuminemia Given 09/15/2024 6:29 EST 30 mL documented in this encounter Orders Dialysis Count Last Ordered Date First Orde red Date HEMODIALYSIS 1 09/15/2024 documented in this encounter Care Teams Renewable Energy Engineer Relationship Specialty Start Date End Date Ken Greer MD [address] [place] [address] PCP - General 07/07/23 Kiel Powers Assistance Representative Nephrology 05/31/24 documented as of this encounter
--- OUTSIDE RECORDS SUMMARY | 2024-12-05 11:57 | XMS_ITS | Encounter Summary ---
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 Ken Greer MD Primary Care Provider [phone] Kiel Powers Unavailable Unavailable Encounter Details Date Type Department Care Team (Late st Contact Info) Description 09/14/2024 Documentation Visit [facility] [address] [place] [address] Shelley Eden, RD [address] [place] [address] Social History Tobacco Use Types Packs/Day Years Used Date Smoking Tobacco: Every Day Cigarettes 1 26.1 Started: 1998 Smokeless Tobacco: Never Alcohol Use Standard Drinks/Week Comments Yes 0 (1 standard drink = 0.6 oz pur e alcohol) Socially [facility] Utilities Answer Date Recorded In the past 12 months has e [employer] oil, or [employer] threatened to shut off services in your [...] any time in the past 12 m [facility], were you homeless or living [...] your living situation today? [facility] 05/30/2024 Think about the [...] the past 12 months has th e [employer], oil, or water [employer] 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 Discussed his high phos and k level. Xander said he is no longer taking kaexylate. He also is snacking frequently and not taking binders. Discussed with pt and increasing binders at meals to 3 tablets of renvela and also adding tums with snacks. Again encouraged to decrease his soup intake. We also discussed importance of quality protein. said he had an apt to get fitted for prosthetics. Appetite: Very good / increased Appetite scale (0-10): No number given Gastrointestinal: No recent issues Skin integrity: S/p amputations - now all healed per Diabetes: Yes all over Diabetes Management: Self Monitoring of Blood Glucose on insulin Diet Recall: B coffee with milk at [employer] and has brown and egg and cheese s/w L tomato soupD pork rice string beans and squash Fluid: Water, Coffee, Milk, Juice, tea Alcohol: will need to f/u Prescribed Weight:75.5 Post-Dialytic Weight: 75 09/04/2024 10:48 09/06/2024 10:45 09/08/2024 10:46 09/11/2024 10:44 09/13/2024 10:50 - ( Kg ) 76.4 75.5 75.3 75.8 75 UFR: 09/04/2024 10:48 09/06/2024 10:45 09/08/2024 10:46 09/11/2024 10:44 09/13/2024 10:50 - mL/Kg/hr 12.67 ml:kg:hr 13.57 ml:kg:hr 10.24 ml:kg:hr 13.3 ml:kg:hr 10.73 ml:kg:hr URR: 72 (Calculated from:; BUN Pre-Dialysis: 75 mg/dL at 08/28/2024 11:23; BUN Post-Dialysis: 21 mg/dL at 08/28/2024 11:23) Kt/V: 1.57 (Calculated from:; BUN Pre-Dialysis: 75 mg/dL at 08/28/2024 11:23; BUN Post-Dialysis: 21 mg/dL at 08/28/2024 11:23; Pre-Treatment Weight (kg): 81.6 at 08/28/2024 6:22; Post-Treatment Weight (kg): 77.2 at 08/28/2024 10:47; Duration of Treatment (minutes): 250 minutes at 08/28/2024 10:47) PCR: 1.37 (Calculated from:; BUN Pre-Dialysis: 75 mg/dL at 08/28/2024 11:23; BUN Post-Dialysis: 21 mg/dL at 08/28/2024 11:23; Pre-Treatment Weight (kg): 81.6 at 08/28/2024 6:22; Post-Treatment Weight (kg): 77.2 at 08/28/2024 10:47; Duration of Treatment (minutes): 250 minutes at 08/28/2024 10:47; Age: 58 years) Pertinent Labs include: Lab Results Component Value Date LABALBU 3.1 (L) 08/28/2024 LABALBU 3.1 (L) 07/31/2024 Lab Results Component Value Date BUNPRE 75 (H) 08/28/2024 BUNPRE 75 (H) 08/28/2024 NA 137 08/28/2024 NA 137 07/31/2024 K 5.8 (H) 08/28/2024 K 6.6 (H) 07/31/2024 CL 104 08/28/2024 CL 100 07/31/2024 CO2 22 08/28/2024 CO2 19 (L) 07/31/2024 MG 2.3 08/28/2024 MG 2.1 07/31/2024 CALCIUM 8.0 (L) 08/28/2024 CALCIUM 8.1 (L) 07/31/2024 CALCCA 8.7 (L) 08/28/2024 CALCCA 8.8 (L) 07/31/2024 PHOS 9.9 (H) 08/28/2024 PHOS 10.0 (H) 07/31/2024 ALKPHOS 91 08/28/2024 ALKPHOS 97 07/31/2024 PTH 712 (H) 07/31/2024 PTH 250 (H) 05/01/2024 PLT 229 09/13/2024 PLT 255 09/06/2024 MCV 92 09/13/2024 MCV 92 09/06/2024 [id number] 607 10/27/2023 [id number] 11/16/2022 VITD 21 (L) 10/27/2023 VITD 27 (L) 11/16/2022 FOLATE >24.0 10/27/2023 FOLATE 17.3 11/16/2022 HGBA1C 11.6 (H) 11/07/2023 Protein/calorie supplements: liqaucel on HD days protein powder at home (orgain)- recmd to restart Renal/other vitamins: cholecalciferol (Vitamin D3) - 2000 [...] Adequacy of intake: Xander has been eating -well- encouraged HBV protein and use ofprotein powder - albumin improving. Will cont liquacel at HD. Wt has declined about 12 kg this yearr/t recent amputations however wt has been stable these last 3 months. At his current wt his BMI is28 adjusted for amps Weight/Volume status: fluid gains often high 2.2-4.6 UFR 12-13 Electrolytes: K-high - pt now on kayexalate - have discussed at length with pt and and provided extensive potassium education - encouraged consistency with kaexylate Na WNL Mg WNL Mineral Bone Disease: Ca -WNL Phos chronically high - on 2 tums at HD, Renvela (recmd 3) TID with meals PTH WNL - no calcitriol Vitamin Status: [...] binders and to avoid processed foods - recmd to increase renvela to 3 at meals Cont liquacel at HD [...] Contact Info) Description 12/06/2024 6:45 EST Treatment [facility] [place] [address] [place], [place] [id number] Carlota Jin MD [address] [phone] 12/08/2024 6:45 EST Treatment [facility] [address] [place], [place] [id number] Carlota Jin MD 1 [facility], [address] [phone] 12/11/2024 6:45 EST Treatment [facility] [place] [address] [place], [place] [id number] Carlota Jin MD [address] [phone] 12/13/2024 6:45 EST Treatment [facility] [address] [place], [place] [id number] Carlota Jin MD [address] [phone] 12/15/2024 6:45 EST Treatment [facility] [place] [address] [place], [place] [id number] Carlota Jin MD 1 [facility], [facility] [address] [place] [phone] 12/18/2024 6:45 EST Treatment [facility] [address] [place], [place] [id number] Carlota Jin MD 1 [facility], [facility] [address] [place] [phone] 12/20/2024 6:45 EST Treatment [facility] [address] [place], [place] [id number] Carlota Jin MD 1 [facility], [facility] [address] [place] [phone] 12/22/2024 6:45 EST Treatment [facility] [address] [place], [place] [address] Carlota Jin MD 1 [facility], [facility] [address] [place] [phone] 12/25/2024 6:45 EST Treatment [facility] [place] [address] [place], [place] [id number] Carlota Jin MD 1 [facility], [facility] [address] [place] [phone] 12/27/2024 6:45 EST Treatment [facility] [address] [place], [place] [id number] Carlota Jin MD 1 [facility], [facility] [address] [place] [phone] 12/29/2024 6:45 EST Treatment [facility] [address] [place] [address] Carlota Jin MD 1 [facility], [facility] [address] [place] [phone] 01/01/2025 6:45 EDT Treatment [facility] [address] [place] [address] Carlota Jin MD 1 [facility], [facility] [address] [place] [phone] 01/03/2025 6:45 EDT Treatment [facility] [address] [place], [place] [id number] Carlota Jin MD 1 [facility], [facility] [address] [place] [phone] 01/05/2025 6:45 EDT Treatment [facility] [address] [place] [address] Carlota Jin MD 1 [facility], [facility] [address] [place] [phone] 01/08/2025 6:45 EDT Treatment [facility] [address] [place], [place] [id number] Carlota Jin MD 1 [facility], [facility] [address] [place] [phone] 01/10/2025 6:45 EDT Treatment [facility] [address] [place], [place] [address] Carlota Jin MD 1 [facility], [facility] [address] [place] [phone] 01/12/2025 6:45 EDT Treatment [facility] [place] [address] [place], [place] [id number] Carlota Jin MD 1 [facility], [address] [phone] 01/15/2025 6:45 EDT Treatment [facility] [place] [address] [place], [place] [id number] Carlota Jin MD 1 [facility], [facility] [address] [place] [phone] 01/17/2025 6:45 EDT Treatment [facility] [place] [address] [place], [place] [address] Carlota Jin MD 1 [facility], [facility] [address] [place] [phone] 01/19/2025 6:45 EDT Treatment [facility] [place] [address] [place], [place] [id number] Carlota Jin MD 1 [facility], [facility] [address] [place] [phone] 01/22/2025 6:45 EDT Treatment [facility] [address] [place], [place] [address] Carlota Jin MD 1 [facility], [facility] [address] [place] [phone] 01/24/2025 6:45 EDT Treatment [facility] [place] [address] [place], [place] [phone] Carlota Jin MD 1 [facility], [address] [phone] 01/26/2025 6:45 EDT Treatment [facility] [address] [place], [place] [id number] Carlota Jin MD 1 [facility], [address] [phone] 01/29/2025 6:45 EDT Treatment [facility] [address] [place], [place] [id number] Carlota Jin MD [address] [phone] 01/31/2025 6:45 EDT Treatment [facility] [place] [address] [place], [place] [phone] Carlota Jin MD [address] [phone] 02/02/2025 6:45 EDT Treatment [facility] [address] [place], [place] [id number] Carlota Jin MD 1 [facility], [facility] [address] [place] [phone] 02/05/2025 6:45 EDT Treatment [facility] [place] [address] [place], [place] [id number] Carlota Jin MD 1 [facility], [facility] [address] [place] [phone] 02/07/2025 6:45 EDT Treatment [facility] [address] [place], [place] [phone] Carlota Jin MD 1 [facility], [facility] [address] [place] [phone] 02/09/2025 6:45 EDT Treatment [facility] [place] [address] [place], [place] [address] Carlota Jin MD 1 [facility], [address] [phone] 02/12/2025 6:45 EDT Treatment [facility] [address] [place] [address] Carlota Jin MD 1 [facility], [facility] [address] [place] [phone] 02/14/2025 6:45 EDT Treatment [facility] [place] [address] [place], [place] [id number] Carlota Jin MD 1 [facility], [facility] [address] [place] [phone] 02/16/2025 6:45 EDT Treatment [facility] [place] [address] [place], [place] [phone] Carlota Jin MD 1 [facility], [facility] [address] [place] [phone] 02/19/2025 6:45 EDT Treatment [facility] [place] [address] [place], [place] [id number] Carlota Jin MD 1 [facility], [facility] [address] [place] [phone] 02/21/2025 6:45 EDT Treatment [facility] [place] [address] [place], [place] [id number] Carlota Jin MD [address] [place] [address], [facility] [address] [place] [phone] documented as of this encounter Visit Diagnoses Not on filedocumented in this encounter Care Teams [employer] Worker Relationship Specialty Start Date End Date Ken Greer MD [address] [place] [address] PCP - General 07/07/23 [address] Vehicle Operator Nephrology 05/31/24 documented as of this encounter
--- OUTSIDE RECORDS SUMMARY | 2024-12-05 11:57 | XMS_ITS | Encounter Summary ---
Author Organization [facility] Address [address] [place] [address] Care Team Providers Care Diet Attendant Name Role Phone Ken Greer MD Primary Care Provider [phone] Kiel Powers Unavailable Unavailable Reason for Visit * Episode Based Medications (Routine) - New Request Specialty Diagnoses / Procedures Referred By Nader gardiner Referred To Contact Diagnoses ESRD (end stage renal disease) ([facility]) Carlota Jin MD [address] [place] [address], [facility] [address] [place] [address] Phone: tel: fax: [facility] [place] [address] [place] [address] Phone: tel: fax: Referral ID Status Reason Start Date Expiration Date V isits Requested Visits Authorized [id number] New Request 03/17/2024 1 1 Encounter Details Date Type Department Care Team (Latest Contact Info) Description 09/01/2024 6:45 EST Treatment [facility] [address] [place] [id number] Carlota Jin MD [address] [place] [address], [facility] [address] [place] [address] ESRD (end stage renal disease) ([facility]) (Primary Dx); Hypoalbuminemia; Secondary hyperparathyroidism ([facility]) Social History Tobacco Use Types Packs/Day [...] any time in the past 12 m [facility], were you homeless or living [...] the past 12 months has th e [employer], gas, oil, or water [employer] threatened to shut off services in your [...] - Temperature - - Respiratory Rate 16 09/01/2024 0624 EST Oxygen Saturation - - Inhaled Oxygen Concentration - - Weight 79.6 kg (175 lb 7.8 oz) 09/01/[address] Height - - Body Mass Index 25.18 07/20/2024 1359 EDT documented in this encounter [...] Flowsheet Note - Marcela Cox RN - 09/01/2024 1342 EST 09/01/24 1055 Post-Hemodialysis Assessment Total Blood Processed (L) 89.65 Liters On Line Clearance: spKt/V 1.51 spKt/V Dialyzer Clearance Lightly streaked Treatment UFR (ml:kg:hr) 12.27 ml:kg:hr Fluid Removed (L) 4.3 L Post-Dialysis Scale Weight 107.1 kg (236 lb 1.8 oz) Wheelchair Weight 31.4 kg (69 lb 3.6 oz) Prosthesis Weight 0 kg (0 lb) Post-Treatment Weight (kg) 75.7 Treatment Weight Change (kg) 3.9 kg Day Target Weight (kg) 75.8 Post Sitting/Lying BP 170/78 Post Sitting/Lying pulse 63 Temp 36.6 ??C (97.9 ??F) Temp src Temporal Minutes Short -252 Post access assessment AVF/AFG Hemostasis achieved Yes [...] Contact Info) Description 12/06/2024 6:45 EST Treatment [facility] [address] [place], [place] [id number] Carlota Jin MD 1 [facility], [facility] [address] [place] [phone] 12/08/2024 6:45 EST Treatment [facility] [address] [place], [place] [id number] Carlota Jin MD 1 [facility], [facility] 2 [place] [phone] 12/11/2024 6:45 EST Treatment [facility] [address] [place] [address] Carlota Jin MD [address] [place] [address], [facility] [address] [place] [phone] 12/13/2024 6:45 EST Treatment [facility] [address] [place], [place] [id number] Carlota Jin MD 1 [facility], [facility] 2 [place] [phone] 12/15/2024 6:45 EST Treatment [facility] [place] [address] [place], [place] [id number] Carlota Jin MD 1 [facility], [facility] 2 [place] [phone] 12/18/2024 6:45 EST Treatment [facility] [place] [address] [place], [place] [address] Carlota Jin MD 1 [facility], [facility] 2 [place] [phone] 12/20/2024 6:45 EST Treatment [facility] [place] [address] [place] [address] Carlota Jin MD 1 [facility], [address] [phone] 12/22/2024 6:45 EST Treatment [facility] [address] [place], [place] [id number] Carlota Jin MD 1 [facility], [address] [phone] 12/25/2024 6:45 EST Treatment [facility] [place] [address] [place], [place] [id number] Carlota Jin MD 1 [facility], [address] [phone] 12/27/2024 6:45 EST Treatment [facility] [address] [place], [place] [id number] Carlota Jin MD [address] [phone] 12/29/2024 6:45 EST Treatment [facility] [address] [place], [place] [id number] Carlota Jin MD 1 [facility], [address] [phone] 01/01/2025 6:45 EDT Treatment [facility] [place] [address] [place], [place] [id number] Carlota Jin MD 1 [facility], [facility] 2 [place] [phone] 01/03/2025 6:45 EDT Treatment [facility] [address] [place], [place] [id number] Carlota Jin MD 1 [facility], [facility] 2 [place] [phone] 01/05/2025 6:45 EDT Treatment [facility] [address] [place] [address] Carlota Jin MD 1 [facility], [facility] 2 [place] [phone] 01/08/2025 6:45 EDT Treatment [facility] [address] [place], [place] [id number] Carlota Jin MD 1 [facility], [facility] 2 [place] [phone] 01/10/2025 6:45 EDT Treatment [facility] [address] [place], [place] [id number] Carlota Jin MD 1 [facility], [facility] 2 [place] [phone] 01/12/2025 6:45 EDT Treatment [facility] [place] [address] [place], [place] [address] Carlota Jin MD 1 [facility], [facility] 2 [place] [phone] 01/15/2025 6:45 EDT Treatment [facility] [place] [address] [place], [place] [id number] Carlota Jin MD 1 [facility], [facility] [address] [place] [phone] 01/17/2025 6:45 EDT Treatment [facility] [address] [place], [place] [id number] Carlota Jin MD 1 [facility], [facility] 2 [place] [phone] 01/19/2025 6:45 EDT Treatment [facility] [address] [place], [place] [id number] Carlota Jin MD 1 [facility], [address] [phone] 01/22/2025 6:45 EDT Treatment [facility] [address] [place], [place] [id number] Carlota Jin MD 1 [facility], [facility] 2 [place] [phone] 01/24/2025 6:45 EDT Treatment [facility] [place] [address] [place], [place] [id number] Carlota Jin MD 1 [facility] 2 [place] [phone] 01/26/2025 6:45 EDT Treatment [facility] [place] [address] [place], [place] [address] Carlota Jin MD 1 [facility], [facility] 2 [place] [phone] 01/29/2025 6:45 EDT Treatment [facility] [place] [address] [place], [place] [id number] Carlota Jin MD 1 [facility], [facility] 2 [place] [phone] 01/31/2025 6:45 EDT Treatment [facility] [place] [address] [place], [place] [id number] Carlota Jin MD 1 [facility], [facility] [address] [place] [phone] 02/02/2025 6:45 EDT Treatment [facility] [place] [address] [place] [address] Carlota Jin MD 1 [facility], [facility] 2 [place] [phone] 02/05/2025 6:45 EDT Treatment [facility] [address] [place], [place] [id number] Carlota Jin MD 1 [facility], [facility] [address] [place] [phone] 02/07/2025 6:45 EDT Treatment [facility] [place] [address] [place], [place] [id number] Carlota Jin MD 1 [facility], [facility] [address] [place] [phone] 02/09/2025 6:45 EDT Treatment [facility] [address] [place], [place] [id number] Carlota Jin MD 1 [facility], [address] [phone] 02/12/2025 6:45 EDT Treatment [facility] [place] [address] [place], [place] [id number] Carlota Jin MD 1 [facility], [address] [phone] 02/14/2025 6:45 EDT Treatment [facility] [address] [place], [place] [id number] Carlota Jin MD 1 [facility], [facility] 2 [place] [phone] 02/16/2025 6:45 EDT Treatment [facility] [address] [place], [place] [id number] Carlota Jin MD 1 [facility], [facility] 2 [place] [phone] 02/19/2025 6:45 EDT Treatment [facility] [address] [place], [place] [id number] Carlota Jin MD 1 [facility], Level [address] [place] [address] 02/21/2025 6:45 EDT Treatment [facility] [place] [address] [place] [address] Carlota Jin MD 1 [facility], Level [address] [place] [address] documented as of this encounter Procedures Procedure Name Priority Date/Time Associated Diagnosis Comments HEMODIALYSIS Routine 09/01/2024 6:24 EST ESRD (end stage renal disease) ([facility]) documented in this encounter Visit Diagnoses Diagnosis ESRD (end stage renal disease) ([facility])- Primary End stage renal disease Hypoalbuminemia Other disorders of plasma protein metabolism Secondary hyperparathyroidism ([facility]) Secondary hyperparathyroidism (of renal origin) documented in this encounter Administered Medications Inactive Administered Medications - up to 3 most recent administrations Medication Order MAR Action Action Date Dose Rate Site acetaminophen (TYLENOL) tablet 650 mg 650 mg, oral, EVERY 4 HOURS PRN, Starting on Wed09/01/24 at 1036, Until Wed09/01/24 at 1542, Pain, Routine, DialysisIndications:ESRD (end stage renal disease) ([facility]) Given 09/01/2024 10:38 EST 650 mg calcium carbonate (TUMS) tablet 500 mg (200 mg elemental calcium) 2 Tablet 2 Tablet, oral, ONCE IN DIALYSIS, 1 dose, On Wed09/01/24 at 0645, Routine, DialysisIndications:ESRD (end stage renal disease) ([facility]),Secondary hyperparathyroidism ([facility]) Given 09/01/2024 6:49 EST 2 Tablets epoetin ken (EPOGEN) 20,000 unit/2 mL injection 9,000 Units 9,000 Units, intravenous, ONCE IN DIALYSIS, 1 dose, On Wed09/01/24 at 0645, Routine, DialysisIndications:ESRD (end stage renal disease) ([facility]) Given 09/01/2024 6:49 EST 9,000 Units heparin injection 3,000 Units 3,000 Units, intravenous, ONCE IN DIALYSIS, 1 dose, On Wed09/01/24 at 0645, Routine, Dialysis, Now x1 bolus 1500 units to be given at the beginning of dialysis 500 units/hour to be given over the course of dialysis (3000 units total). Stop 1 hour prior to end of treatment. To be administered per Policy [id number].Indications:ESRD (end stage renal disease) ([facility]) Given 09/01/2024 6:49 EST 3,000 Units iron sucrose (VENOFER) injection 200 mg 200 mg, intravenous, ONCE IN DIALYSIS, 1 dose, On Wed09/01/24 at 0645, Routine, DialysisIndications:ESRD (end stage renal disease) ([facility]) Given 09/01/2024 6:49 EST 200 mg LiquaCel liquid protein liquid 30 mL 30 mL, oral, ONCE IN DIALYSIS, 1 dose, On Wed09/01/24 at 0645, Patient's flavor preference: either, Routine, DialysisIndications:ESRD (end stage renal disease) ([facility]),Hypoalbuminemia Given 09/01/2024 6:49 EST 30 mL documented in this encounter Orders Dialysis Count Last Ordered Date First Orde red Date HEMODIALYSIS 1 09/01/2024 documented in this encounter Care Teams Diet Attendant Relationship Specialty Start Date End Date Ken Greer MD [address] [place] [address] PCP - General 07/07/23 Kiel Powers [employer] Nephrology 05/31/24 documented as of this encounter
--- OUTSIDE RECORDS SUMMARY | 2024-12-05 11:57 | XMS_ITS | Encounter Summary ---
Author Organization [facility] Address [address] [place] [address] Care Team Providers Care Motion Picture Set Grip Name Role Phone Ken Greer MD Primary Care Provider [phone] Kiel Powers Unavailable Unavailable Encounter Details Date Type Department Care Team (Late st Contact Info) Description 09/06/2024 Documentation Visit [facility] [address] [place] [address] Paris Quintanilla NP 1 [facility], Level [address] [place] [address] Social History Tobacco Use Types Packs/Day Years Used Date Smoking Tobacco: Every Day Cigarettes 1 26.1 Started: 1998 Smokeless Tobacco: Never Alcohol Use Standard Drinks/Week Comments Yes 0 (1 standard drink = 0.6 oz pur e alcohol) Socially [place] [employer] Answer Date Recorded In the past 12 months has [employer], gas, oil, or water [employer] threatened to shut off services in your [...] any time in the past 12 m [facility], were you homeless or living in a fdc (including now)? No 05/30/2024 Interpersonal Safety Answer Date Record ed How often does anyone, martin lyons family, hit, punch or physically hurt you? 05/30/2024 How often does anyone, martin lyons family, insult, scream, curse or threaten to hurt you? 05/30/2024 Living Situation Answer Date Recorded What is your living situation today? I have a [facility] place to live 05/30/2024 Think [...] Contact Info) Description 12/06/2024 6:45 EST Treatment [facility] [address] [place] [address] Carlota Jin MD 1 [facility], Level [address] [place] [address] 12/08/2024 6:45 EST Treatment [facility] [address] [place], [place] [phone] Carlota Jin MD 1 [facility], [facility] 2 [place] [phone] 12/11/2024 6:45 EST Treatment [facility] [address] [place], [place] [id number] Carlota Jin MD 1 [facility], [facility] 2 [place] [phone] 12/13/2024 6:45 EST Treatment [facility] [address] [place], [place] [id number] Carlota Jin MD 1 [facility], [facility] [address] [place] [phone] 12/15/2024 6:45 EST Treatment [facility] [address] [place], [place] [id number] Carlota Jin MD 1 [facility], [facility] 2 [place] [phone] 12/18/2024 6:45 EST Treatment [facility] [address] [place], [place] [phone] Carlota Jin MD 1 [facility], [facility] [address] [place] [phone] 12/20/2024 6:45 EST Treatment [facility] [address] [place], [place] [id number] Carlota Jin MD 1 [facility], [facility] 2 [place] [phone] 12/22/2024 6:45 EST Treatment [facility] [address] [place], [place] [address] Carlota Jin MD 1 [facility], [facility] [address] [place] [phone] 12/25/2024 6:45 EST Treatment [facility] [address] [place], [place] [id number] Carlota Jin MD 1 [facility], [facility] [address] [place] [phone] 12/27/2024 6:45 EST Treatment [facility] [address] [place], [place] [id number] Carlota Jin MD 1 [facility], [facility] 2 [place] [phone] 12/29/2024 6:45 EST Treatment [facility] [address] [place], [place] [id number] Carlota Jin MD 1 [facility], [facility] [address] [place] [phone] 01/01/2025 6:45 EDT Treatment [facility] [address] [place], [place] [id number] Carlota Jin MD 1 [facility], [facility] [address] [place] [phone] 01/03/2025 6:45 EDT Treatment [facility] [address] [place], [place] [phone] Carlota Jin MD 1 [facility], [facility] [address] [place] [phone] 01/05/2025 6:45 EDT Treatment [facility] [address] [place], [place] [id number] Carlota Jin MD 1 [facility], [address] [phone] 01/08/2025 6:45 EDT Treatment [facility] [address] [place], [place] [id number] Carlota Jin MD 1 [facility], [address] [phone] 01/10/2025 6:45 EDT Treatment [facility] [address] [place], [place] [id number] Carlota Jin MD 1 [facility], [facility] [address] [place] [phone] 01/12/2025 6:45 EDT Treatment [facility] [address] [place], [place] [id number] Carlota Jin MD 1 [facility], [facility] [address] [place] [phone] 01/15/2025 6:45 EDT Treatment [facility] [address] [place], [place] [id number] Carlota Jin MD 1 [facility], [facility] [address] [place] [phone] 01/17/2025 6:45 EDT Treatment [facility] [address] [place], [place] [phone] Carlota Jin MD 1 [facility], [facility] [address] [place] [phone] 01/19/2025 6:45 EDT Treatment [facility] [address] [place] [address] Carlota Jin MD 1 [facility], [facility] [address] [place] [phone] 01/22/2025 6:45 EDT Treatment [facility] [address] [place] [address] Carlota Jin MD 1 [facility], [facility] [address] [place] [phone] 01/24/2025 6:45 EDT Treatment [facility] [address] [place] [address] Carlota Jin MD 1 [facility], [facility] [address] [place] [phone] 01/26/2025 6:45 EDT Treatment [facility] [address] [place], [place] [phone] Carlota Jin MD 1 [facility], [facility] [address] [place] [phone] 01/29/2025 6:45 EDT Treatment [facility] [address] [place], [place] [address] Carlota Jin MD 1 [facility], [facility] [address] [place] [phone] 01/31/2025 6:45 EDT Treatment [facility] [address] [place], [place] [id number] Carlota Jin MD 1 [facility], [facility] [address] [place] [phone] 02/02/2025 6:45 EDT Treatment [facility] [address] [place] [address] Carlota Jin MD 1 [facility], [address] [phone] 02/05/2025 6:45 EDT Treatment [facility] [address] [place], [place] [address] Carlota Jin MD 1 [facility], [facility] [address] [place] [phone] 02/07/2025 6:45 EDT Treatment [facility] [address] [place], [place] [id number] Carlota Jin MD 1 [facility], [facility] [address] [place] [phone] 02/09/2025 6:45 EDT Treatment [facility] [address] [place], [place] [phone] Carlota Jin MD 1 [facility], [facility] [address] [place] [phone] 02/12/2025 6:45 EDT Treatment [facility] [address] [place] [address] Carlota Jin MD 1 [facility], [facility] 2 [place] [phone] 02/14/2025 6:45 EDT Treatment [facility] [address] [place] [address] Carlota Jin MD 1 [facility], [facility] 2 [place] [phone] 02/16/2025 6:45 EDT Treatment [facility] [address] [place], [place] [id number] Carlota Jin MD 1 [facility], [facility] [address] [place] [phone] 02/19/2025 6:45 EDT Treatment [facility] [address] [place] [address] Carlota Jin MD 1 [facility], [facility] 2 [place] [phone] 02/21/2025 6:45 EDT Treatment [facility] [address] [place], [place] [id number] Carlota Jin MD 1 [facility], [facility] [address] [place] [phone] documented as of this encounter Visit Diagnoses Not on filedocumented in this encounter Care Teams Motion Picture Set Grip Relationship Specialty Start Date End Date Ken Greer MD [address] [place] [address] PCP - General 07/07/23 Kiel Powers [employer] Nephrology 05/31/24 documented as of this encounter
--- OUTSIDE RECORDS SUMMARY | 2024-12-05 11:57 | XMS_ITS | Encounter Summary ---
Author Organization [facility] Address [address] [place] [address] Care Team Providers Care Food Bagging Machine Operator Name Role Phone Ken Greer MD Primary Care Provider [phone] Kiel Powers Unavailable Unavailable Reason for Visit * Episode Based Medications (Routine) - New Request Specialty Diagnoses / Procedures Referred By Nader gardiner Referred To Contact Diagnoses ESRD (end stage renal disease) ([facility]) Carlota Jin MD [address] [place] [address], [facility] [address] [place] [address] Phone: tel: fax: [facility] [place] [address] [place] [address] Phone: tel: fax: Referral ID Status Reason Start Date Expiration Date V isits Requested Visits Authorized [id number] New Request 03/17/2024 1 1 Encounter Details Date Type Department Care Team (Latest Contact Info) Description 09/08/2024 6:45 EST Treatment [facility] [address] [place] [id number] Carlota Jin MD [address] [place] [address], [facility] [address] [place] [address] ESRD (end stage renal disease) ([facility]) (Primary Dx); Hypoalbuminemia; Secondary hyperparathyroidism ([facility] Social History Tobacco Use Types Packs/Day [...] any time in the past 12 m [facility], were you homeless or living in a [place] health care facility (including now)? No 05/30/2024 Interpersonal Safety Answer [...] the past 12 months has th e [employer], gas, oil, or water [employer] threatened to shut off services in your [...] - Temperature - - Respiratory Rate 16 09/08/2024 0623 EST Oxygen Saturation - - Inhaled Oxygen Concentration - - Weight 78.5 kg (173 lb 1 oz) 09/08/2024 0624 EST Height - - Body Mass [...] Flowsheet Note - Marcela Cox RN - 09/08/2024 1348 EST 09/08/24 1046 Post-Hemodialysis Assessment Total Blood Processed (L) 89.88 Liters On Line Clearance: spKt/V 1.47 spKt/V Dialyzer Clearance Lightly streaked Treatment UFR (ml:kg:hr) 10.24 ml:kg:hr Final Critline Profile (%/hr) -0.58 Final Profile Profile A Critline refill Negative (34.6/34.5) Fluid Removed (L) 3.5 L Post-Dialysis Scale Weight 94.3 kg (207 lb 14.3 oz) Wheelchair Weight 19 kg (41 lb 14.2 oz) Prosthesis Weight 0 kg (0 lb) Post-Treatment Weight (kg) 75.3 Treatment Weight Change (kg) 3.2 kg Day Target Weight (kg) 75.5 Post Sitting/Lying BP (!) 142/101 Post Sitting/Lying pulse 69 Temp 36.7 ??C (98.1 ??F) Temp src Temporal Minutes Short -249 Post access assessment AVF/AFG Hemostasis achieved Yes Note pt held sites for 10 minutes with blue clamps Orientation Alert and Oriented x3 Yes Time Yes Place Yes Person Yes Cooperative Yes Disoriented No Discharge Ambulation Methods Departs via w/c Wrap up items Patient Response to Treatment Tolerated tx well. Removed 3.5L UF goal without difficulty. Comments No issues during tx, no concerns voiced post tx. documented in this encounter Plan of Treatment Upcoming Encounters Date Type Department Care Team (Late st Contact Info) Description 12/06/2024 6:45 EST Treatment [facility] [place] [address] [place], [place] [phone] Carlota Jin MD 1 [facility], [address] [phone] 12/08/2024 6:45 EST Treatment [facility] [place] [address] [place], [place] [phone] Carlota Jin MD [address] [phone] 12/11/2024 6:45 EST Treatment [facility] [place] [address] [place], [place] [phone] Carlota Jin MD [address] [phone] 12/13/2024 6:45 EST Treatment [facility] [place] [address] [place], [place] [id number] Carlota Jin MD [address] [phone] 12/15/2024 6:45 EST Treatment [facility] [place] [address] [place], [place] [id number] Carlota Jin MD [address] [place] [phone] 12/18/2024 6:45 EST Treatment [facility] [place] [address] [place], [place] [id number] Carlota Jin MD 1 [facility], [facility] [address] [place] [phone] 12/20/2024 6:45 EST Treatment [facility] [place] [address] [place], [place] [id number] Carlota Jin MD 1 [facility], [facility] [address] [place] [phone] 12/22/2024 6:45 EST Treatment [facility] [place] [address] [place], [place] [id number] Carlota Jin MD 1 [facility], [facility] [address] [place] [phone] 12/25/2024 6:45 EST Treatment [facility] [address] [place], [place] [id number] Carlota Jin MD 1 [facility], [facility] [address] [place] [phone] 12/27/2024 6:45 EST Treatment [facility] [address] [place], [place] [id number] Carlota Jin MD 1 [facility], [facility] [address] [place] [phone] 12/29/2024 6:45 EST Treatment [facility] [address] [place], [place] [phone] Carlota Jin MD 1 [facility], [facility] [address] [place] [phone] 01/01/2025 6:45 EDT Treatment [facility] [place] [address] [place] [address] Carl[address] MD 1 [facility], [facility] [address] [place] [phone] 01/03/2025 6:45 EDT Treatment [facility] [place] [address] [place], [place] [phone] Carlota Jin MD 1 [facility], [address] [phone] 01/05/2025 6:45 EDT Treatment [facility] [place] [address] [place], [place] [phone] Carlota Jin MD 1 [facility], [address] [phone] 01/08/2025 6:45 EDT Treatment [facility] [place] [address] [place], [place] [id number] Carlota Jin MD 1 [facility], [facility] [address] [place] [phone] 01/10/2025 6:45 EDT Treatment [facility] [place] [address] [place], [place] [phone] Carlota Jin MD 1 [facility], [facility] [address] [place] [phone] 01/12/2025 6:45 EDT Treatment [facility] [place] [address] [place], [place] [phone] Carlota Jin MD 1 [facility], [facility] [address] [place] [phone] 01/15/2025 6:45 EDT Treatment [facility] [place] [address] [place], [place] [id number] Carlota Jin MD 1 [facility], [address] [phone] 01/17/2025 6:45 EDT Treatment [facility] [place] [address] [place], [place] [phone] Carlota Jin MD [address] [place] [address], [address] [phone] 01/19/2025 6:45 EDT Treatment [facility] [place] [address] [place], [place] [phone] Carlota Jin MD [address] [place] [address], [facility] [address] [place] [phone] 01/22/2025 6:45 EDT Treatment [facility] [place] [address] [place], [place] [phone] Carlota Jin MD 1 [facility], [facility] [address] [place] [phone] 01/24/2025 6:45 EDT Treatment [facility] [place] [address] [place], [place] [address] Carlota Jin MD 1 [facility], [facility] [address] [place] [phone] 01/26/2025 6:45 EDT Treatment [facility] [place] [address] [place], [place] [phone] Carlota Jin MD 1 [facility], [facility] [address] [place] [phone] 01/29/2025 6:45 EDT Treatment [facility] [place] [address] [place], [place] [phone] Carlota Jin MD 1 [facility], [facility] [address] [place] [phone] 01/31/2025 6:45 EDT Treatment [facility] [place] [address] [place], [place] [phone] Carlota Jin MD 1 [facility], [facility] [address] [place] [phone] 02/02/2025 6:45 EDT Treatment [facility] [place] [address] [place], [place] [phone] Carlota Jin MD 1 [facility], [facility] [address] [place] [phone] 02/05/2025 6:45 EDT Treatment [facility] [place] [address] [place], [place] [phone] Carlota Jin MD 1 [facility], [facility] [address] [place] [phone] 02/07/2025 6:45 EDT Treatment [facility] [place] [address] [place], [place] [phone] [facility] MD 1 [facility] [address] [place] [phone] 02/09/2025 6:45 EDT Treatment [facility] [place] [address] [place], [place] [phone] Carlota Jin MD 1 [facility], [facility] [address] [place] [phone] 02/12/2025 6:45 EDT Treatment [facility] [place] [address] [place], [place] [id number] Carlota Jin MD 1 [facility], [facility] [address] [place] [phone] 02/14/2025 6:45 EDT Treatment [facility] [address] [place] [address] Carl[facility] MD 1 [facility], [facility] [address] [place] [phone] 02/16/2025 6:45 EDT Treatment [facility] [address] [place], [place] [phone] Carlota Jin MD 1 [facility], [facility] [address] [place] [phone] 02/19/2025 6:45 EDT Treatment [facility] [place] [address] [place], [place] [phone] Carlota Jin MD 1 [facility], [facility] [address] [place] [phone] 02/21/2025 6:45 EDT Treatment [facility] [place] [address] [place], [place] [phone] Carlota Jin MD 1 [facility], [facility] [address] [place] [phone] documented as of this encounter Procedures Procedure Name Priority Date/Time Associated Diagnosis Comments HEMODIALYSIS Routine 09/08/2024 6:23 EST ESRD (end stage renal disease) ([facility]) documented in this encounter Visit Diagnoses Diagnosis ESRD (end stage renal disease) ([facility])- Primary End stage renal disease Hypoalbuminemia Other disorders of plasma protein metabolism Secondary hyperparathyroidism ([facility]) Secondary hyperparathyroidism (of renal origin) documented in this encounter Administered Medications Inactive Administered Medications - up to 3 most recent administrations Medication Order MAR Action Action Date Dose Rate Site calcium carbonate (TUMS) tablet 500 mg (200 mg elemental calcium) 2 Tablet 2 Tablet, oral, ONCE IN DIALYSIS, 1 dose, On Wed09/08/24 at 0645, Routine, DialysisIndications:ESRD (end stage renal disease) ([facility]),Secondary hyperparathyroidism ([facility]) Given 09/08/2024 6:29 EST 2 Tablets epoetin ken (EPOGEN) 20,000 unit/2 mL injection 9,000 Units 9,000 Units, intravenous, ONCE IN DIALYSIS, 1 dose, On Wed09/08/24 at 0645, Routine, DialysisIndications:ESRD (end stage renal disease) ([facility]) Given 09/08/2024 6:45 EST 9,000 Units heparin injection 3,000 Units 3,000 Units, intravenous, ONCE IN DIALYSIS, 1 dose, On Wed09/08/24 at 0645, Routine, Dialysis, Now x1 bolus 1500 units to be given at the beginning of dialysis 500 units/hour to be given over the course of dialysis (3000 units total). Stop 1 hour prior to end of treatment. To be administered per Policy [id number].Indications:ESRD (end stage renal disease) ([facility]) Given 09/08/2024 6:45 EST 3,000 Units LiquaCel liquid protein liquid 30 mL 30 mL, oral, ONCE IN DIALYSIS, 1 dose, On Wed09/08/24 at 0645, Patient's flavor preference: either, Routine, DialysisIndications:ESRD (end stage renal disease) ([facility]),Hypoalbuminemia Given 09/08/2024 6:29 EST 30 mL documented in this encounter Orders Dialysis Count Last Ordered Date First Orde red Date HEMODIALYSIS 1 09/08/2024 documented in this encounter Care Teams Food Bagging Machine Operator Relationship Specialty Start Date End Date Ken Greer MD [address] [place] [address] PCP - General 07/07/23 Kiel Powers Cytology Technologist Nephrology 05/31/24 documented as of this encounter
--- OUTSIDE RECORDS SUMMARY | 2024-12-05 11:57 | XMS_ITS | Encounter Summary ---
Author Organization [facility] Address [address] [place] [address] Care Team Providers Care Selling Specialist Name Role Phone Ken Greer MD Primary Care Provider Kiel Powers Unavailable Unavailable Encounter Details Date Type Department Care Team (Late st Contact Info) Description 08/29/2024 Documentation Visit [facility] [address] [place] [address] Shelley Eden, RD [address] [place] [address] Social History Tobacco Use Types Packs/Day Years Used Date Smoking Tobacco: Every Day Cigarettes 1 26.1 Started: 1998 Smokeless Tobacco: Never Alcohol Use Standard Drinks/Week Comments Yes 0 (1 standard drink = 0.6 oz pur e alcohol) Socially [facility] Utilities Answer Date Recorded In the past 12 months has e [employer], gas, oil, or water [employer] threatened to shut off services in your [...] any time in the past 12 m [facility], were you homeless or living in a [facility] (including now)? No 05/30/2024 Interpersonal Safety Answer Date Record ed How often does anyone, martin loyns family, hit, punch or physically hurt you? 05/30/2024 How often does anyone, martin lyons family, insult, scream, curse or threaten to hurt you? 05/30/2024 Living Situation Answer Date Recorded What is your living situation today? I have a [facility] place to live 05/30/2024 Think about [...] the past 12 months has th e [employer], gas, oil, or water [employer] threatened to shut off services in your [...] Description 12/06/2024 6:45 EST Treatment [facility] [place] [address] [place] [phone] Carlota Jin MD 1 [facility], Level [address] [place] [address] 12/08/2024 6:45 EST Treatment [facility] [place] [address] [place], [place] [phone] Carlota Jin MD 1 [facility] [address] [place] [phone] 12/11/2024 6:45 EST Treatment [facility] [place] [address] [place], [place] [id number] Carlota Jin MD 1 [facility] [address] [place] [phone] 12/13/2024 6:45 EST Treatment [facility] [place] [address] [place] [address] Carlota Jin MD 1 [facility], [address] [phone] 12/15/2024 6:45 EST Treatment [facility] [place] [address] [place], [place] [id number] Carlota Jin MD 1 [facility], [address] [phone] 12/18/2024 6:45 EST Treatment [facility] [place] [address] [place] [address] Carlota Jin MD 1 [facility], [facility] [address] [place] [phone] 12/20/2024 6:45 EST Treatment [facility] [place] [address] [place], [place] [id number] Carlota Jin MD 1 [facility], [facility] [address] [place] [phone] 12/22/2024 6:45 EST Treatment [facility] [place] [address] [place], [place] [id number] Carlota Jin MD 1 [facility], [facility] [address] [place] [phone] 12/25/2024 6:45 EST Treatment [facility] [place] [address] [place], [place] [id number] Carlota Jin MD 1 [facility], [facility] [address] [place] [phone] 12/27/2024 6:45 EST Treatment [facility] [place] [address] [place], [place] [id number] Carlota Jin MD 1 [facility], [facility] [address] [place] [phone] 12/29/2024 6:45 EST Treatment [facility] [place] [address] [place], [place] [id number] Carlota Jin MD 1 [facility], [facility] [address] [place] [phone] 01/01/2025 6:45 EDT Treatment [facility] [place] [address] [place], [place] [id number] Carlota Jin MD 1 [facility], [facility] [address] [place] [phone] 01/03/2025 6:45 EDT Treatment [facility] [place] [address] [place], [place] [id number] Carlota Jin MD 1 [facility], [facility] [address] [place] [phone] 01/05/2025 6:45 EDT Treatment [facility] [place] [address] [place] [address] Carlota Jin MD 1 [facility], [address] [phone] 01/08/2025 6:45 EDT Treatment [facility] [place] [address] [place], [place] [id number] Carlota Jin MD 1 [facility], [address] [phone] 01/10/2025 6:45 EDT Treatment [facility] [place] [address] [place], [place] [id number] Carlota Jin MD 1 [facility], [address] [phone] 01/12/2025 6:45 EDT Treatment [facility] [place] [address] [place], [place] [id number] Carlota Jin MD 1 [facility], [facility] [address] [place] [phone] 01/15/2025 6:45 EDT Treatment [facility] [place] [address] [place], [place] [id number] Carlota Jin MD 1 [facility], [facility] [address] [place] [phone] 01/17/2025 6:45 EDT Treatment [facility] [place] [address] [place], [place] [id number] Carlota Jin MD 1 [facility], [facility] [address] [place] [phone] 01/19/2025 6:45 EDT Treatment [facility] [place] [address] [place], [place] [id number] Carlota Jin MD 1 [facility], [facility] [address] [place] [phone] 01/22/2025 6:45 EDT Treatment [facility] [place] [address] [place] [address] Carlota Jin MD 1 [facility], [address] [phone] 01/24/2025 6:45 EDT Treatment [facility] [place] [address] [place], [place] [id number] Carlota Jin MD 1 [facility], [facility] [address] [place] [phone] 01/26/2025 6:45 EDT Treatment [facility] [place] [address] [place], [place] [id number] Carlota Jin MD 1 [facility], [facility] [address] [place] [phone] 01/29/2025 6:45 EDT Treatment [facility] [place] [address] [place], [place] [address] Carlota Jin MD 1 [facility], [facility] [address] [place] [phone] 01/31/2025 6:45 EDT Treatment [facility] [place] [address] [place], [place] [id number] Carlota Jin MD 1 [facility], [facility] [address] [place] [phone] 02/02/2025 6:45 EDT Treatment [facility] [place] [address] [place], [place] [id number] Carlota Jin MD 1 [facility], [address] [phone] 02/05/2025 6:45 EDT Treatment [facility] [place] [address] [place], [place] [id number] Carlota Jin MD [address] [phone] 02/07/2025 6:45 EDT Treatment [facility] [place] [address] [place], [place] [id number] Carlota Jin MD [address] [phone] 02/09/2025 6:45 EDT Treatment [facility] [place] [address] [place], [place] [id number] Carlota Jin MD 1 [facility] [address] [place] [phone] 02/12/2025 6:45 EDT Treatment [facility] [place] [address] [place], [place] [id number] Carlota Jin MD 1 [facility], [facility] 2 [place] [phone] 02/14/2025 6:45 EDT Treatment [facility] [place] [address] [place], [place] [id number] Carlota Jin MD 1 [facility], [facility] 2 [place] [phone] 02/16/2025 6:45 EDT Treatment [facility] [place] [address] [place], [place] [id number] Carlota Jin MD 1 [facility], [facility] [address] [place] [phone] 02/19/2025 6:45 EDT Treatment [facility] [place] [address] [place], [place] [id number] Carlota Jin MD 1 [facility], [facility] 2 [place] [phone] 02/21/2025 6:45 EDT Treatment [facility] [place] [address] [place], [place] [id number] Carlota Jin MD 1 [facility], [facility] [address] [place] [phone] documented as of this encounter Visit Diagnoses Not on filedocumented in this encounter Care Teams Selling Specialist Relationship Specialty Start Date End Date Ken Greer MD [facility] [place] [address] [place] [address] PCP - General 07/07/23 Kiel Powers Rabies Inspector Nephrology 05/31/24 documented as of this encounter
--- OUTSIDE RECORDS SUMMARY | 2024-12-05 11:57 | XMS_ITS | Encounter Summary ---
Author Organization [facility] Address [address] [place] [address] Care Team Providers Care Director Digital Catalogue Name Role Phone Ken Greer MD Primary Care Provider [phone] Kiel Powers Unavailable Unavailable Reason for Visit * Episode Based Medications (Routine) - New Request Specialty Diagnoses / Procedures Referred By Nader gardiner Referred To Contact Diagnoses ESRD (end stage renal disease) ([facility]) Carlota Jin MD [address] [place] [address], [facility] [address] [place] [address] Phone: tel: fax: [facility] [place] [address] [place] [address] Phone: tel: fax: Referral ID Status Reason Start Date Expiration Date V isits Requested Visits Authorized [id number] New Request 03/17/2024 1 1 Encounter Details Date Type Department Care Team (Latest Contact Info) Description 09/11/2024 6:45 EST Treatment [facility] [address] [place] [id number] Carlota Jin MD [address] [place] [address], [facility] [address] [place] [address] ESRD (end stage renal disease) ([facility]) (Primary Dx); Hypoalbuminemia; [facility] Social History Tobacco Use Types Packs/Day Years Used Date Smoking Tobacco: Every Day Cigarettes 1 26.1 Started: 1998 Smokeless Tobacco: Never Alcohol Use Standard Drinks/Week Comments Yes 0 (1 standard drink = 0.6 oz pur e alcohol) Socially [facility] Utilities Answer Date Recorded In [...] any time in the past 12 [facility], were you homeless or living in [...] the past 12 months has th e [place], gas, oil, or water [employer] threatened to shut off services in your [...] - Temperature - - Respiratory Rate 16 09/11/2024 0623 EST Oxygen Saturation - - Inhaled Oxygen Concentration - - Weight 79.9 kg (176 lb 2.4 oz) 09/11/[address] Height - - Body Mass Index 25.27 07/20/2024 1359 EDT documented in this encounter [...] Flowsheet Note - Marcela Cox RN - 09/11/2024 1348 EST 09/11/24 1044 Post-Hemodialysis Assessment Total Blood Processed (L) 89.83 Liters On Line Clearance: spKt/V 1.48 spKt/V Dialyzer Clearance Lightly streaked Treatment UFR (ml:kg:hr) 13.3 ml:kg:hr Critline refill Not done Fluid Removed (L) 4.3 L Post-Dialysis Scale Weight 94.8 kg (208 lb 15.9 oz) Wheelchair Weight 19 kg (41 lb 14.2 oz) Prosthesis Weight 0 kg (0 lb) Post-Treatment Weight (kg) 75.8 Treatment Weight Change (kg) 4.1 kg Day Target Weight (kg) 76.1 Post Sitting/Lying BP 171/89 Post Sitting/Lying pulse 63 Temp 36.3 ??C (97.3 ??F) Temp src Temporal Minutes Short -244 Post access assessment Bruit present: Yes Thrill Present AVF/AFG Hemostasis achieved Yes Note Patient held with blue clamps for 10mins without any issues Orientation Alert and Oriented x3 Yes Time Yes Place Yes Person Yes Cooperative Yes Disoriented No Discharge Ambulation Methods Departs via w/c Wrap up items Patient Response to Treatment Tolerated tx well. Removed 4.3L UF goal without difficulty. Comments No issues during tx, no concerns voiced post tx. * Dialysis Comprehensive - Carlota Jin MD - 09/11/2024 0645 EST Images from the original note were not included. 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 associated with type 2diabetes mellitus ([facility]) ESRD (end stage renal disease) ([facility]) Primary hypertension [I10] Hearing loss Herniation of lumbar intervertebral disc with radiculopathy Hyperlipidemia Proteinuria Right sided numbness Secondary hyperparathyroidism ([facility]) TIA (transient ischemic attack) Type II or unspecified type diabetes mellitus with neurological manifestations, uncontrolled(250.62) Encounter for immunization Hypoalbuminemia Anemia of chronic renal failure Abnormal albumin Cellulitis and abscess of foot, except toes Encounter for therapeutic drug monitoring Diabetic foot infection ([facility]) [E11.628, L08.9] COVID Type 2 diabetes mellitus with chronic kidney disease on chronic dialysis, with long-term current use of insulin ([facility]) [E11.22, N18.6, Z99.2, Z79.4] Anemia of chronic renal failure, stage 5 ([facility]) [N18.5, D63.1] ESRD on hemodialysis ([facility]) Atrial fibrillation and flutter ([facility]) Anemia in chronic kidney disease Anxiety and depression GERD (gastroesophageal reflux disease) Nicotine dependence, cigarettes, uncomplicated Non-healing open wound of heel Olecranon bursitis, right elbow Osteoarthrosis Peripheral neuropathy Retinopathy Sciatica Smoker Type 2 diabetes mellitus with diabetic neuropathy, unspecified ([facility]) Secondary hyperparathyroidism of renal origin ([facility]) Diabetes mellitus ([facility]) Treatment Modality: Patient received information regarding treatment [...] Listing On-Hold? No No No Transplant Center [facility] Comments Patient does not meet transplant criteria due to daily smoking cigarettes pt referred to transplant @ [facility] declined due to severe PVD [...] with Nursing: Yes Average Interdialytic Fluid Gains: 09/06/2024 6:29 09/06/2024 10:45 09/08/2024 6:23 09/08/2024 6:24 09/08/2024 10:46 09/11/2024 6:23 09/11/2024 6:25 InterDialytic +/- Gain/Loss 3.3 3 3 4.6 4.6 Wt (pre) 79.7 78.5 78.5 79.9 79.9 Wt (post) 75.5 75.3 Treatment UFR (ml:kg:hr) 13.57 ml:kg:hr 10.24 ml:kg:hr BP (post) 197/94 198/93 198/93 188/98 188/98 Pulse(post) 73 72 72 70 70 Resp (/min) 16 16 16 Volume and blood pressure have been addressed with the following changes: None Consistently able to achieve estimated dry weight? Yes Blood pressure is in range for patient? No. Hypertension: home pressures not known Any adverse intradialytic symptoms? No Plan: Managed per protocol Physical Exam Constitutional No distress Respiratory: CTAB Cardiac: distant Abdomen: soft Extremities: Bilateral BKA Hospitalization Hospitalization in Previous 1 Month: No Emergency Room Visit in Previous 1 Month: No Access Management Current LDAs: Hemodialysis Arteriovenous Access 02/13/19 (Active) AV Fistula Present 09/11/24641 Site Assessment Clean;Dry;Intact;Thrill felt;Bruit heard 09/11/24641 Current State Active 09/11/24641 Status Accessed 09/11/24641 Is Maturing N 09/11/24641 Local Anesthetic None 09/11/24641 Site Prep Chlorhexidine 09/11/24641 Venous Needle Size 15 G 09/11/24641 Arterial/Generic Needle Size 15 G 09/11/24 0642 Accessed by: Cecile Cortes 09/11/24641 Access Attempts 2 09/11/24641 Dressing Status/Care Clean/Dry/Intact 08/30/24 06 Dressing Intervention Other (Comment) 05/30/242054 Patient has [...] insulin pen needles 32G x 5/32, Brand: 800razors Ultra Fine Anny. ISS TID and levemir [...] 11 Adjustment made to home medication: Yes: he has been refusing to take his kayexalate Dialysis Medication Review Dialysis Plan Order Summary All Current Orders Interval Duration Due Hemodialysis Therapy Plan Dialysis Treatment In-Center Hemodialysis 3 times a week Week of 09/10/2024 Routine, ONE TIME Starting when released Prescribed [...] - UF Profile: None Dialysis Last released: Wed09/11/2024 Oxygen Therapy (Age 3 yrs. to Adult) [...] endof treatment. To be administered per Policy [id number]. Last released: Wed09/11/2024 sodium chloride 0.9 % BOLUS 100 mL PRN PRN 100 mL, intravenous, PRN Starting when released Until Discontinued, Other, hypotension or cramping,Dialysis Last released: Never Dialysis Weekly Labs Complete Blood Count Weekly: Wed09/13/2024 Routine, ONE TIME Starting when released, Blood, Venous, Blood Dialysis Last released: Wed09/06/2024 Dialysis Monthly Labs Dialysis Iron (Includes Iron, IBC, and Ferritin) - Nephrology Use Only On the Wed of every 1 month Wed09/25/2024 Routine, ONE TIME Starting when released, Blood, Venous, Blood Dialysis Last released: Wed08/28/2024 Dialysis Routine- Dialysis Use Only On the Wed of every 1 month Wed09/25/2024 Routine, ONE TIME Starting when released, Blood, Blood, Venous Dialysis Last released: Wed08/28/2024 Postdialysis BUN with URR Calculation On the Wed of every 1 month Wed09/25/2024 Routine, ONE TIME Starting when released, Blood, Blood, Venous Dialysis Last released: Wed08/28/2024 Dialysis Quarterly Labs PTH Intact On the Wed of every 3 months Wed10/30/2024 Routine, ONE TIME Starting when released, Blood, Venous, Blood Dialysis Last released: Wed07/31/2024 Dialysis Annual Labs - October Dialysis Hepatitis- Dialysis Use Only On the Wed of every 12 months Wed10/30/2024 Routine, ONE TIME Starting when released, Blood, Blood, Venous Dialysis Last released: Wed10/27/2023 Folate On the Wed of every 12 [...] only block results from tests performed at [facility] and does not apply for Miscellaneous Test Order): Immediate Dialysis Last released: Never HEMODIALYSIS [facility] Medications epoetin ken (EPOGEN) 20,000 unit/2 mL injection 6,500 Units 3 times a week Week of 09/10/2024 6,500 Units, intravenous, ONCE IN DIALYSIS Starting when released, Dialysis Last released: Wed09/11/2024 HEMODIALYSIS NUTRITIONAL SUPPLEMENTS Nutritional Supplements LiquaCel liquid protein liquid 30 mL Every visit Every visit 30 mL, oral, ONCE IN DIALYSIS Starting when released Patient's flavor preference: either Dialysis Last released: Wed09/11/2024 HEMODIALYSIS CKD MBD MEDS Medications calcium carbonate (TUMS) tablet 500 mg (200 mg elemental calcium) 2 Tablet Every visit Every visit 2 Tablet, oral, ONCE IN DIALYSIS Starting when released, Dialysis Last released: Wed09/11/2024 Adjustment made to dialysis medication: No Laboratory Results Dialysis Adequacy: spKt/V: 1.57 (Calculated from:; BUN Pre-Dialysis: 75 mg/dL at 08/28/2024 11:23; BUN Post-Dialysis: 21 mg/dL at 08/28/2024 11:23; Pre-Treatment Weight (kg): 81.6 at 08/28/2024 6:22; Post-Treatment Weight(kg): 77.2 at 08/28/2024 10:47; Duration of Treatment (minutes): 250 minutes at 08/28/2024 10:47) Plan: Continue current dialysis prescription Anemia Management: Lab Results Component Value Date WBC 8.77 09/06/2024 HGB 11.5 (L) 09/06/2024 HGB 10.3 (L) 08/30/2024 HGB 9.4 (L) 08/23/2024 PLT 255 09/06/2024 FOLATE >24.0 10/27/2023 [id number] 607 10/27/2023 FERRITIN 366 (H) 08/28/2024 Current GEORGE/Dose: HEMODIALYSIS ANEMIA [facility] epoetin ken (EPOGEN) 20,000 unit/2 mL injection 6,500 Units 6,500 Units, intravenous, 3 times a week, ONCE [...] 08/28/2024 Prescribed Potassium Concentrate: HEMODIALYSIS Ordered at: 09/11/24 0623 Dialysate concentrate: Potassium 2 mEq/L Calcium 2.5 mEq/L 09/11/2024 6:23 Last Dialysis Prescription released on: Selected bath: [...] Managed per protocol Comments: Ongoing issues with dietary and medication adherence. He stopped taking his kayexalate because it doesn't taste good. I again explained the risk of high potassium levels, and that his levels are often dangerously elevated. Will continue to support. Carlota Jin MD documented in this encounter Plan of Treatment Upcoming Encounters Date Type Department Care Team (Late st Contact Info) Description 12/06/2024 6:45 EST Treatment [facility] [place] [address] [place], [place] [id number] Carlota Jin MD 1 [facility], [facility] [address] [place] [phone] 12/08/2024 6:45 EST Treatment [facility] [place] [address] [place], [place] [phone] Carlota Jin MD [address] [phone] 12/11/2024 6:45 EST Treatment [facility] [place] [address] [place], [place] [id number] Carlota Jin MD 1 [facility], [address] [phone] 12/13/2024 6:45 EST Treatment [facility] [place] [address] [place], [place] [id number] Carlota Jin MD 1 [facility], [address] [phone] 12/15/2024 6:45 EST Treatment [facility] [place] [address] [place], [place] [phone] Carlota Jin MD 1 [facility], [address] [phone] 12/18/2024 6:45 EST Treatment [facility] [place] [address] [place], [place] [phone] Carlota Jin MD 1 [facility], [facility] [address] [place] [phone] 12/20/2024 6:45 EST Treatment [facility] [place] [address] [place], [place] [phone] Carlota Jin MD 1 [facility], [facility] [address] [place] [phone] 12/22/2024 6:45 EST Treatment [facility] [address] [place], [place] [phone] Carlota Jin MD 1 [facility], [facility] [address] [place] [phone] 12/25/2024 6:45 EST Treatment [facility] [address] [place], [place] [address] Carlota Jin MD 1 [facility], [facility] [address] [place] [phone] 12/27/2024 6:45 EST Treatment [facility] [address] [place], [place] [phone] Carlota Jin MD 1 [facility], [facility] [address] [place] [phone] 12/29/2024 6:45 EST Treatment [facility] [address] [place], [place] [id number] Carlota Jin MD 1 [facility], [facility] [address] [place] [phone] 01/01/2025 6:45 EDT Treatment [facility] [place] [address] [place] [address] Carl[facility] Jin MD 1 [facility], [facility] [address] [place] [phone] 01/03/2025 6:45 EDT Treatment [facility] [place] [address] [place], [place] [phone] Carlota Jin MD 1 [facility], [facility] [address] [place] [phone] 01/05/2025 6:45 EDT Treatment [facility] [place] [address] [place], [place] [phone] Carlota Jin MD 1 [facility], [facility] [address] [place] [phone] 01/08/2025 6:45 EDT Treatment [facility] [place] [address] [place], [place] [phone] Carlota Jin MD 1 [facility], [facility] [address] [place] [phone] 01/10/2025 6:45 EDT Treatment [facility] [place] [address] [place], [place] [phone] Carlota Jin MD 1 [facility], [facility] 2 [place] [phone] 01/12/2025 6:45 EDT Treatment [facility] [place] [address] [place], [place] [phone] Carlota Jin MD 1 [facility], [facility] [address] [place] [phone] 01/15/2025 6:45 EDT Treatment [facility] [place] [address] [place], [place] [phone] Carlota Jin MD [address] [place] [address], [facility] [address] [place] [phone] 01/17/2025 6:45 EDT Treatment [facility] [address] [place], [place] [phone] Carlota Jin MD [address] [place] [address], [address] [phone] 01/19/2025 6:45 EDT Treatment [facility] [address] [place], [place] [phone] Carlota Jin MD [address] [place] [address], [facility] [address] [place] [phone] 01/22/2025 6:45 EDT Treatment [facility] [address] [place], [place] [id number] Carlota Jin MD 1 [facility], [facility] 2 [place] [phone] 01/24/2025 6:45 EDT Treatment [facility] [place] [address] [place], [place] [address] Carlota Jin MD 1 [facility], [facility] [address] [place] [phone] 01/26/2025 6:45 EDT Treatment [facility] [place] [address] [place], [place] [phone] Carlota Jin MD 1 [facility], [facility] 2 [place] [phone] 01/29/2025 6:45 EDT Treatment [facility] [place] [address] [place], [place] [phone] Carlota Jin MD 1 [facility], [address] [phone] 01/31/2025 6:45 EDT Treatment [facility] [place] [address] [place], [place] [phone] Carlota Jin MD [address] [phone] 02/02/2025 6:45 EDT Treatment [facility] [place] [address] [place], [place] [phone] Carlota Jin MD [address] [phone] 02/05/2025 6:45 EDT Treatment [facility] [place] [address] [place], [place] [phone] Carlota Jin MD 1 [facility], [address] [place] [phone] 02/07/2025 6:45 EDT Treatment [facility] [place] [address] [place], [place] [id number] Carlota Jin MD 1 [facility], [facility] 2 [place] [phone] 02/09/2025 6:45 EDT Treatment [facility] [place] [address] [place], [place] [phone] Carlota Jin MD 1 [facility], [facility] 2 [place] [phone] 02/12/2025 6:45 EDT Treatment [facility] [place] [address] [place], [place] [phone] Carlota Jin MD 1 [facility], [facility] 2 [place] [phone] 02/14/2025 6:45 EDT Treatment [facility] [place] [address] [place] [address] Carlota Jin MD 1 [facility], [facility] [address] [place] [phone] 02/16/2025 6:45 EDT [facility] [address] [place], [place] [phone] Carlota Jin MD 1 [facility], [facility] 2 [place] [phone] 02/19/2025 6:45 EDT Treatment [facility] [place] [address] [place] [address] Carlota Jin MD 1 [facility], [facility] [address] [place] [phone] 02/21/2025 6:45 EDT Treatment [facility] [place] [address] [place] [address] Carlota Jin MD 1 [facility], [facility] [address] [place] [phone] documented as of this encounter Procedures Procedure Name Priority Date/Time Associated Diagnosis Comments POCT GLUCOSE, INTERFACED Routine 09/11/2024 10:44 EST HEMODIALYSIS Routine 09/11/2024 6:23 EST ESRD (end stage renal disease) ([facility]) documented in this encounter Results * POCT GLUCOSE, INTERFACED (09/11/2024 10:44 EST) Glucose, POC 83 70 - 100 mg/dL 09/11/2024 10:45 EST [facility] HN LAB POC COMMENT (GLUCOSE) Test Performed by Nursing Services 09/11/2024 10:45 EST [facility] Blood CAPILLARY BLOOD / Unknown 09/11/2024 10:44 EST 09/11/2024 10:45 EST us Carlota Jin MD POINT OF CARE TEST ORDERA BLES Final Result [facility] [address] [place] [address] documented in this encounter Visit Diagnoses Diagnosis ESRD (end stage renal disease) ([facility])- Primary End stage renal disease Hypoalbuminemia Other disorders of plasma protein metabolism Secondary hyperparathyroidism ([facility]) Secondary hyperparathyroidism (of renal origin) documented in this encounter Administered Medications Inactive Administered Medications - up to 3 most recent administrations Medication Order MAR Action Action Date Dose Rate Site calcium carbonate (TUMS) tablet 500 mg (200 mg elemental calcium) 2 Tablet 2 Tablet, oral, ONCE IN DIALYSIS, 1 dose, On Wed09/11/24 at 0645, Routine, DialysisIndications:ESRD (end stage renal disease) ([facility]),Secondary hyperparathyroidism ([facility]) Given 09/11/2024 6:33 EST 2 Tablets epoetin ken (EPOGEN) 20,000 unit/2 mL injection 6,500 Units 6,500 Units, intravenous, ONCE IN DIALYSIS, 1 dose, On Wed09/11/24 at 0645, Routine, DialysisIndications:ESRD (end stage renal disease) ([facility]) Given 09/11/2024 6:45 EST 6,500 Units heparin injection 3,000 Units 3,000 Units, intravenous, ONCE IN DIALYSIS, 1 dose, On Wed09/11/24 at 0645, Routine, Dialysis, Now x1 bolus 1500 units to be given at the beginning of dialysis 500 units/hour to be given over the course of dialysis (3000 units total). Stop 1 hour prior to end of treatment. To be administered per Policy [id number].Indications:ESRD (end stage renal disease) ([facility]) Given 09/11/2024 6:45 EST 3,000 Units LiquaCel liquid protein liquid 30 mL 30 mL, oral, ONCE IN DIALYSIS, 1 dose, On Wed09/11/24 at 0645, Patient's flavor preference: either, Routine, DialysisIndications:ESRD (end stage renal disease) ([facility]),Hypoalbuminemia Given 09/11/2024 6:32 EST 30 mL documented in this encounter Orders Dialysis Count Last Ordered Date First Orde red Date HEMODIALYSIS 1 09/11/2024 documented in this encounter Care Teams Director Digital Catalogue Relationship Specialty Start Date End Date Ken [place] [address] PCP - General 07/07/23 Kiel Powers Mild Disabilities Teacher Nephrology 05/31/24 documented as of this encounter
--- OUTSIDE RECORDS SUMMARY | 2024-12-05 11:57 | XMS_ITS | Encounter Summary ---
Author Organization [facility] Address [address] [place] [address] Care Team Providers Care Senior Software Qa Analyst Name Role Phone Ken Greer MD Primary Care Provider [phone] Kiel Powers Unavailable Unavailable Encounter Details Date Type Department Care Team (Late st Contact Info) Description 09/04/2024 Documentation Visit [facility] [address] [place], [place] [id number] Marcela Cox, RN Social History Tobacco Use Types Packs/Day Years Used Date Smoking Tobacco: Every Day Cigarettes 1 26.1 Started: 1998 Smokeless Tobacco: Never Alcohol Use Standard Drinks/Week Comments Yes 0 (1 standard drink = 0.6 oz pur e alcohol) Socially [facility] Utilities Answer Date Recorded In the past [...] in the past 12 m [facility], were you homeless or living [...] Progress Notes * Marcela Cox RN - 09/04/2024 1330 EST 09/04/24 13:32 [facility] DIALYS[facility] MEDICATION RECONCILIATION Medication review of home medications (prescriptions, mxev-suz-hitziyn, herbals, vitamin/mineral/dietary (nutritional) supplements, medical marijuana, and [...] unit/mL vial insulin pen needles 32G x 32 pantoprazole (PROTONIX) 40 mg tablet polyethylene glycol 3350 (MIRALAX) 17 gram packet pregabalin (LYRICA) 100 mg capsule senna-docusate (SENNA PLUS) 8.6-50 mg per tablet sevelamer carbonate (RENVELA) 800 mg tablet sodium polystyrene (KAYEXALATE) powder tiZANidine (ZANAFLEX) 4 mg tablet torsemide (DEMADEX) 100 mg tablet No current facility-administered medications for this visit. Marcela Cox RN documented in this encounter Plan of Treatment Upcoming Encounters Date Type Department Care Team (Late st Contact Info) Description 12/06/2024 6:45 EST Treatment [facility] [address] [place], [place] [id number] Carlota Jin MD 1 [facility], [facility] [address] [place] [address] 12/08/2024 6:45 EST Treatment [facility] [address] [place], [place] [phone] Carlota Jin MD 1 [facility], [facility] [address] [place] [address] 12/11/2024 6:45 EST Treatment [facility] [place] [address] [place], [place] [phone] Carlota Jin MD 1 [facility], [facility] [address] [place] [phone] 12/13/2024 6:45 EST Treatment [facility] [place] [address] [place], [place] [phone] Carlota Jin MD 1 [facility], [facility] [address] [place] [phone] 12/15/2024 6:45 EST Treatment [facility] [place] [address] [place], [place] [phone] Carlota Jin MD 1 [facility], [facility] [address] [place] [phone] 12/18/2024 6:45 EST Treatment [facility] [place] [address] [place], [place] [id number] Carlota Jin MD 1 [facility], [facility] [address] [place] [phone] 12/20/2024 6:45 EST Treatment [facility] [place] [address] [place], [place] [phone] Carlota Jin MD 1 [facility], [facility] [address] [place] [phone] 12/22/2024 6:45 EST Treatment [facility] [place] [address] [place], [place] [id number] Carlota Jin MD 1 [facility], [facility] [address] [place] [phone] 12/25/2024 6:45 EST Treatment [facility] [place] [address] [place], [place] [phone] Carlota Jin MD 1 [facility], [facility] [address] [place] [phone] 12/27/2024 6:45 EST Treatment [facility] [address] [place], [place] [phone] Carlota Jin MD 1 [facility], [facility] [address] [place] [phone] 12/29/2024 6:45 EST Treatment [facility] [place] [address] [place], [place] [phone] Carlota Jin MD 1 [facility], [facility] [address] [place] [phone] 01/01/2025 6:45 EDT Treatment [facility] [address] [place] [address] Carlota Jin MD 1 [facility], [facility] [address] [place] [phone] 01/03/2025 6:45 EDT Treatment [facility] [address] [place], [place] [phone] Carlota Jin MD 1 [facility], [facility] [address] [place] [phone] 01/05/2025 6:45 EDT Treatment [facility] [place] [address] [place], [place] [phone] Carlota Jin MD 1 [facility], [facility] [address] [place] [phone] 01/08/2025 6:45 EDT Treatment [facility] [place] [address] [place], [place] [phone] Carlota Jin MD [address] [place] [address], [address] [phone] 01/10/2025 6:45 EDT Treatment [facility] [place] [address] [place], [place] [phone] Carlota Jin MD [address] [place] [address], [address] [phone] 01/12/2025 6:45 EDT Treatment [facility] [place] [address] [place], [place] [phone] Carlota Jin MD [address] [place] [address], [facility] [address] [place] [phone] 01/15/2025 6:45 EDT Treatment [facility] [place] [address] [place], [place] [phone] Carlota Jin MD 1 [facility], [facility] [address] [place] [phone] 01/17/2025 6:45 EDT Treatment [facility] [place] [address] [place], [place] [phone] Carlota Jin MD 1 [facility], [facility] [address] [place] [phone] 01/19/2025 6:45 EDT Treatment [facility] [place] [address] [place], [place] [address] Carlota Jin MD 1 [facility], [facility] [address] [place] [phone] 01/22/2025 6:45 EDT Treatment [facility] [place] [address] [place] [address] Carlota Jin MD 1 [facility], [facility] [address] [place] [phone] 01/24/2025 6:45 EDT Treatment [facility] [place] [address] [place] [address] Carlota Jin MD 1 [facility], [facility] [address] [place] [phone] 01/26/2025 6:45 EDT Treatment [facility] [place] [address] [place] [address] Carlota Jin MD 1 [facility], [facility] [address] [place] [phone] 01/29/2025 6:45 EDT Treatment [facility] [place] [address] [place], [place] [phone] Carlota Jin MD 1 [facility], [facility] [address] [place] [phone] 01/31/2025 6:45 EDT Treatment [facility] [place] [address] [place], [place] [phone] Carlota Jin MD 1 [facility], [facility] [address] [place] [phone] 02/02/2025 6:45 EDT Treatment [facility] [place] [address] [place], [place] [phone] Carlota Jin MD 1 [facility], [facility] [address] [place] [phone] 02/05/2025 6:45 EDT Treatment [facility] [place] [address] [place] [address] Carlota Jin MD 1 [facility], [address] [phone] 02/07/2025 6:45 EDT Treatment [facility] [place] [address] [place], [place] [id number] Carlota Jin MD 1 [facility], [facility] [address] [place] [phone] 02/09/2025 6:45 EDT Treatment [facility] [place] [address] [place], [place] [phone] Carlota Jin MD 1 [facility], [facility] [address] [place] [phone] 02/12/2025 6:45 EDT Treatment [facility] [place] [address] [place], [place] [address] Carlota Jin MD 1 [facility], [address] [phone] 02/14/2025 6:45 EDT Treatment [facility] [place] [address] [place], [place] [address] Carlota Jin MD [address] [place] [address], [address] [phone] 02/16/2025 6:45 EDT Treatment [facility] [place] [address] [place] [address] Carlota Jin MD [address] [place], [place] [phone] 02/19/2025 6:45 EDT Treatment [facility] [address] [place], [place] [phone] Carlota Jin MD [address] [place] [address], [address] [phone] 02/21/2025 6:45 EDT Treatment [facility] [address] [place] [address] Carlota Jin MD [address] [place] [address], [address] [phone] documented as of this encounter Visit Diagnoses Not on filedocumented in this encounter Care Teams Senior Software Qa Analyst Relationship Specialty Start Date End Date [place] [address] PCP - General 07/07/23 Kiel Powers Senior Director [facility] 05/31/24 documented as of this encounter
--- OUTSIDE RECORDS SUMMARY | 2024-12-05 11:58 | XMS_ITS | Encounter Summary ---
Author Organization [facility] Address [address] [place] [address] Care Team Providers Care Alarm Mechanic Name Role Phone Ken Greer MD Primary Care Provider [phone] Kiel Powers Unavailable Unavailable Reason for Visit * Episode Based Medications (Routine) - New Request Specialty Diagnoses / Procedures Referred By Nader gardiner Referred To Contact Diagnoses ESRD (end stage renal disease) ([facility]) Carlota Jin MD [address] [place] [address] 2 [place] [address] Phone: tel: fax: [facility] [place] [address] [place] [address] Phone: tel: fax: Referral ID Status Reason Start Date Expiration Date V isits Requested Visits Authorized [id number] New Request 03/17/2024 1 1 Encounter Details Date Type Department Care Team (Latest Contact Info) Description 08/14/2024 6:45 EDT Treatment [facility] [address] [place], [place] [phone] Carlota Jin MD [address] [place] [address], [facility] [address] [place] [address] ESRD (end stage renal disease) ([facility]) (Primary Dx); Hypoalbuminemia; Secondary hyperparathyroidism ([facility]) Social History Tobacco Use Types Packs/Day Years Used Date Smoking Tobacco: Every Day Cigarettes 1 26.1 Started: 1998 Smokeless Tobacco: Never Alcohol Use Standard Drinks/Week Comments Yes 0 (1 standard drink = 0.6 oz pur e alcohol) Socially [facility] Utilities Answer Date Recorded In the [...] [facility] the [facility] were you [facility] or living in a penitentiary (including now)? No 05/30/2024 Interpersonal Safety Answer [...] you? Never 05/30/2024 How often does anyone, matrin lyons family and friends, insult or talk [...] the past 12 months has th e [employer], gas, oil, or water [employer] threatened to shut off services in your [...] - Temperature - - Respiratory Rate 16 08/14/2024 0621 EDT Oxygen Saturation - - Inhaled Oxygen Concentration - - Weight 81.2 kg (179 lb 0.2 oz) 08/14/2024 0627 E DT Height - - Body Mass Index 25.69 [...] Flowsheet Note - Marcela Cox RN - 08/14/2024 1323 EDT 08/14/24 1057 Post-Hemodialysis Assessment Total Blood Processed (L) 89.64 Liters On Line Clearance: spKt/V 1.7 spKt/V Dialyzer Clearance Lightly streaked Treatment UFR (ml:kg:hr) 13.59 ml:kg:hr Final Critline Profile (%/hr) -1.45 Final Profile Profile A Critline refill Negative (27.5/27.3) Fluid Removed (L) 4.3 L Post-Dialysis Scale Weight 95.8 kg (211 lb 3.2 oz) Wheelchair Weight 19 kg (41 lb 14.2 oz) Prosthesis Weight 0 kg (0 lb) Post-Treatment Weight (kg) 76.8 Treatment Weight Change (kg) 4.4 kg Day Target Weight (kg) 77.4 Post Sitting/Lying BP (!) 152/108 Post Sitting/Lying pulse 64 Temp 36.5 ??C (97.7 ??F) Temp src Temporal Minutes Short -253 Post access assessment AVF/AFG Hemostasis achieved Yes [...] Dialysis Rounding - Carlota Jin MD - 08/14/2024 0645 EDT TELEMEDICINE VIDEO VISIT Today's visit was provided through telemedicine video conferencing: I have reviewed the appropriateness of using video technology with the patient with regards to today's visit. The location of the patient : Not at home (another medical/non-medical, personal spaces [facility]) The location of the provider: Office The following people and their roles were present for today's visit: Appointment Provider: MD Marcela Valdivia RN Alison F Fitzgerald, MD Dialysis Provider's Routine Assessment Gerson Bruner was seen and examined as appropriate during Dialysis. Pertinent lab results were reviewed. Changes since last visit: None Changes to current prescriptions/orders: None Xander is having recurrent episodes of choking, even with just ice cubes. These episodes are severe. Ihave recommended we reach out to PCP to arrange swallow study to start. Ongoing large fluid gains. Carlota Jin MD The concept of ???Telemedicine?? [...] Description 12/06/2024 6:45 EST Treatment [facility] [place] [address] [place] [address] Carlota Jin MD [facility], [facility] [address] [place] [phone] 12/08/2024 6:45 EST Treatment [facility] [place] [address] [place], [place] [phone] Carlota Jin MD 1 [facility], [facility] [address] [place] [phone] 12/11/2024 6:45 EST Treatment [facility] [place] [address] [place], [place] [phone] Carlota Jin MD 1 [facility], [facility] [address] [place] [phone] 12/13/2024 6:45 EST Treatment [facility] [place] [address] [place] [address] Carlota Jin MD 1 [facility], [facility] [address] [place] [phone] 12/15/2024 6:45 EST Treatment [facility] [place] [address] [place], [place] [phone] Carlota Jin MD 1 [facility], [facility] [address] [place] [phone] 12/18/2024 6:45 EST Treatment [facility] [place] [address] [place], [place] [id number] Carlota Jin MD 1 [facility], [facility] [address] [place] [phone] 12/20/2024 6:45 EST Treatment [facility] [place] [address] [place], [place] [id number] Carlota Jin MD 1 [facility], [facility] [address] [place] [phone] 12/22/2024 6:45 EST Treatment [facility] [place] [address] [place], [place] [id number] Carlota Jin MD 1 [facility], [facility] [address] [place] [phone] 12/25/2024 6:45 EST Treatment [facility] [address] [place], [place] [id number] Carlota Jin MD 1 [facility], [facility] [address] [place] [phone] 12/27/2024 6:45 EST Treatment [facility] [address] [place], [place] [id number] Carlota Jin MD 1 [facility], [facility] [address] [place] [phone] 12/29/2024 6:45 EST Treatment [facility] [address] [place], [place] [phone] Carlota Jin MD 1 [facility], [facility] [address] [place] [phone] 01/01/2025 6:45 EDT Treatment [facility] [address] [place], [place] [id number] Carlota Jin MD 1 [facility], [facility] [address] [place] [phone] 01/03/2025 6:45 EDT Treatment [facility] [place] [address] [place], [place] [id number] Carlota Jin MD 1 [facility], [facility] [address] [place] [phone] 01/05/2025 6:45 EDT Treatment [facility] [place] [address] [place], [place] [id number] Carlota Jin MD 1 [facility], [facility] [address] [place] [phone] 01/08/2025 6:45 EDT Treatment [facility] [place] [address] [place], [place] [id number] Carlota Jin MD 1 [facility], [facility] [address] [place] [phone] 01/10/2025 6:45 EDT Treatment [facility] [place] [address] [place], [place] [id number] Carlota Jin MD 1 [facility], [facility] [address] [place] [phone] 01/12/2025 6:45 EDT Treatment [facility] [place] [address] [place], [place] [id number] Carlota Jin MD 1 [facility], [facility] [address] [place] [phone] 01/15/2025 6:45 EDT Treatment [facility] [place] [address] [place], [place] [id number] Carlota Jin MD 1 [facility], [facility] [address] [place] [phone] 01/17/2025 6:45 EDT Treatment [facility] [place] [address] [place], [place] [id number] Carlota Jin MD 1 [facility], [facility] [address] [place] [phone] 01/19/2025 6:45 EDT Treatment [facility] [place] [address] [place], [place] [phone] Carlota Jin MD 1 [facility], [facility] [address] [place] [phone] 01/22/2025 6:45 EDT Treatment [facility] [place] [address] [place], [place] [id number] Carlota Jin MD 1 [facility], [facility] [address] [place] [phone] 01/24/2025 6:45 EDT Treatment [facility] [place] [address] [place], [place] [id number] Carlota Jin MD 1 [facility], [facility] [address] [place] [phone] 01/26/2025 6:45 EDT Treatment [facility] [place] [address] [place], [place] [address] Carlota Jin MD 1 [facility], [facility] [address] [place] [phone] 01/29/2025 6:45 EDT Treatment [facility] [place] [address] [place] [address] Carlota Jin MD 1 [facility], [facility] [address] [place] [phone] 01/31/2025 6:45 EDT Treatment [facility] [place] [address] [place], [place] [phone] Carlota Jin MD 1 [facility], [address] [phone] 02/02/2025 6:45 EDT Treatment [facility] [place] [address] [place], [place] [id number] Carlota Jin MD 1 [facility], [address] [phone] 02/05/2025 6:45 EDT Treatment [facility] [place] [address] [place], [place] [id number] Carlota Jin MD 1 [facility], [address] [phone] 02/07/2025 6:45 EDT Treatment [facility] [place] [address] [place], [place] [id number] Carlota Jin MD 1 [facility], [facility] 2 [place] [phone] 02/09/2025 6:45 EDT Treatment [facility] [place] [address] [place], [place] [id number] Carlota Jin MD 1 [facility], [facility] [address] [place] [phone] 02/12/2025 6:45 EDT Treatment [facility] [place] [address] [place], [place] [phone] Carlota Jin MD 1 [facility], [facility] [address] [place] [phone] 02/14/2025 6:45 EDT Treatment [facility] [place] [address] [place], [place] [address] [phone] Carlota Jin MD 1 [facility], [facility] [address] [place] [phone] 02/16/2025 6:45 EDT Treatment [facility] [place] [address] [place] [address] Carlota Jin MD 1 [facility], [facility] 2 [place] [phone] 02/19/2025 6:45 EDT Treatment [facility] [place] [address] [place], [place] [phone] Carlota Jin MD 1 [facility], [facility] 2 [place] [phone] 02/21/2025 6:45 EDT Treatment [facility] [place] [address] [place] [address] Carlota Jin MD 1 [facility], [facility] [address] [place] [phone] documented as of this encounter Procedures Procedure Name Priority Date/Time Associated Diagnosis Comments HEMODIALYSIS Routine 08/14/2024 6:21 EDT ESRD (end stage renal disease) ([facility]) documented in this encounter Visit Diagnoses Diagnosis ESRD (end stage renal disease) ([facility])- Primary End stage renal disease Hypoalbuminemia Other disorders of plasma protein metabolism Secondary hyperparathyroidism ([facility]) Secondary hyperparathyroidism (of renal origin) documented in this encounter Administered Medications Inactive Administered Medications - up to 3 most recent administrations Medication Order MAR Action Action Date Dose Rate Site acetaminophen (TYLENOL) tablet 650 mg 650 mg, oral, EVERY 4 HOURS PRN, Starting on Wed08/14/24 at 1020, Until Wed08/14/24 at 1524, Pain, Routine, DialysisIndications:ESRD (end stage renal disease) ([facility]) Given 08/14/2024 10:20 EDT 650 mg calcium carbonate (TUMS) tablet 500 mg (200 mg elemental calcium) 2 Tablet 2 Tablet, oral, ONCE IN DIALYSIS, 1 dose, On Wed08/14/24 at 0645, Routine, DialysisIndications:ESRD (end stage renal disease) ([facility]),Secondary hyperparathyroidism ([facility]) Given 08/14/2024 6:38 EDT 2 Tablets epoetin ken (EPOGEN) 20,000 unit/2 mL injection 9,000 Units 9,000 Units, intravenous, ONCE IN DIALYSIS, 1 dose, On Wed08/14/24 at 0645, Routine, DialysisIndications:ESRD (end stage renal disease) ([facility]) Given 08/14/2024 6:48 EDT 9,000 Units heparin injection 3,000 Units 3,000 Units, intravenous, ONCE IN DIALYSIS, 1 dose, On Wed08/14/24 at 0645, Routine, Dialysis, Now x1 bolus 1500 units to be given at the beginning of dialysis 500 units/hour to be given over the course of dialysis (3000 units total). Stop 1 hour prior to end of treatment. To be administered per Policy [id number].Indications:ESRD (end stage renal disease) ([facility]) Given 08/14/2024 6:48 EDT 3,000 Units LiquaCel liquid protein liquid 30 mL 30 mL, oral, ONCE IN DIALYSIS, 1 dose, On 08/14/24 at 0645, Patient's flavor preference: either, Routine, DialysisIndications:ESRD (end stage renal disease) ([facility]),Hypoalbuminemia Given 08/14/2024 6:38 EDT 30 mL documented in this encounter Orders Dialysis Count Last Ordered Date First Orde red Date HEMODIALYSIS 1 08/14/2024 documented in this encounter Care Teams Alarm Mechanic Relationship Specialty Start Date End Date Ken Greer MD [address] [place] [address] PCP - General 07/07/23 Kiel Powers Outsole Flexer Nephrology 05/31/24 documented as of this encounter
--- OUTSIDE RECORDS SUMMARY | 2024-12-05 11:58 | XMS_ITS | Encounter Summary ---
Author Organization [facility] Address [address] [place] [address] Care Team Providers Care Paediatrician Name Role Phone Ken Greer MD Primary Care Provider [phone] Kiel Powers Unavailable Unavailable Encounter Details Date Type Department Care Team (Late st Contact Info) Description 08/21/2024 Documentation Visit [facility] [address] [place] [address] Alexa Estrada [facility] [address] [place] [address] Social History Tobacco Use Types Packs/Day Years Used Date Smoking Tobacco: Every Day Cigarettes 1 26.1 Started: 1998 Smokeless Tobacco: Never Alcohol Use Standard Drinks/Week Comments Yes 0 (1 standard drink = 0.6 oz pur e alcohol) Socially [facility] Utilities Answer Date Recorded In the past [address] [facility] [employer], gas, oil, or water [employer] threatened to shut off services in your [...] th e electric, gas, oil, or water [employer] threatened to shut off services in your [...] this encounter Progress Notes * Alexa Estrada, STORE HAND - 08/21/2024 1231 EDT 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 Pt reports no SW needs this month. SW will continue to follow and remain avavilable. Current Living Situation: Lives with family and Lives with friends Lives with family Pt lives with his , Hoda, in their apartment in [place]. He rents the apartment and has a [...] Transportation Status: Transportation: Drives Self Payor: Receives [employer] mileage reimbursement. Change in Physical/Medical Status and [...] Patient/Family Strengths: Pt is friendly and engaging Interests/Spiritual/Orthodox Practice: No spiritual practices Depression Screening: Is [...] Contact Info) Description 12/06/2024 6:45 EST Treatment [facility] [address] [place], [place] [phone] Carlota Jin MD 1 [facility], [facility] 2 [place] [phone] 12/08/2024 6:45 EST Treatment [facility] [address] [place], [place] [phone] Cralota Jin MD 1 [facility], [address] [phone] 12/11/2024 6:45 EST Treatment [facility] [address] [place], [place] [phone] Carlota Jin MD 1 [facility], [address] [phone] 12/13/2024 6:45 EST [facility] [address] [place], [place] [phone] Carlota Jin MD 1 [facility], [address] [phone] 12/15/2024 6:45 EST [facility] [address] [place], [place] [phone] Carlota Jin MD 1 [facility], [facility] 2 [place] [phone] 12/18/2024 6:45 EST Treatment [facility] [place] [address] [place], [place] [address] Carlota Jin MD 1 [facility], [facility] 2 [place] [phone] 12/20/2024 6:45 EST Treatment [facility] [place] [address] [place], [place] [phone] Carlota Jin MD 1 [facility], [facility] 2 [place] [phone] 12/22/2024 6:45 EST Treatment [facility] [place] [address] [place], [place] [phone] Carlota Jin MD 1 [facility], [facility] 2 [place] [phone] 12/25/2024 6:45 EST Treatment [facility] [place] [address] [place], [place] [phone] Carlota Jin MD 1 [facility], [facility] 2 [place] [phone] 12/27/2024 6:45 EST Treatment [facility] [place] [address] [place], [place] [phone] Carlota Jin MD 1 [facility], [facility] 2 [place] [phone] 12/29/2024 6:45 EST Treatment [facility] [place] [address] [place], [place] [phone] Carlota Jin MD 1 [facility], [facility] 2 [place] [phone] 01/01/2025 6:45 EDT Treatment [facility] [place] [address] [place], [place] [phone] Carlota Jin MD 1 [facility], [facility] 2 [place] [phone] 01/03/2025 6:45 EDT Treatment [facility] [place] [address] [place], [place] [phone] Carlota Jin MD 1 [facility], [facility] 2 [place] [phone] 01/05/2025 6:45 EDT Treatment [facility] [place] [address] [place], [place] [phone] Carlota Jin MD 1 [facility], [facility] 2 [place] [phone] 01/08/2025 6:45 EDT Treatment [facility] [place] [address] [place] [address] Carlota Jin MD 1 [facility], [facility] 2 [place] [phone] 01/10/2025 6:45 EDT Treatment [facility] [place] [address] [place], [place] [phone] Carlota Jin MD 1 [facility], [facility] 2 [place] [phone] 01/12/2025 6:45 EDT Treatment [facility] [place] [address] [place], [place] [phone] Carlota Jin MD 1 [facility], [facility] 2 [place] [phone] 01/15/2025 6:45 EDT Treatment [facility] [place] [address] [place], [place] [phone] Carlota Jin MD [address] [place] [address], [address] [phone] 01/17/2025 6:45 EDT Treatment [facility] [place] [address] [place], [place] [phone] Carlota Jin MD [address] [place] [address], [address] [phone] 01/19/2025 6:45 EDT Treatment [facility] [place] [address] [place], [place] [phone] Carlota Jin MD [address] [place] [address], [address] [phone] 01/22/2025 6:45 EDT Treatment [facility] [place] [address] [place], [place] [phone] Carlota Jin MD 1 [facility], [facility] 2 [place] [phone] 01/24/2025 6:45 EDT Treatment [facility] [place] [address] [place], [place] [phone] Carlota Jin MD 1 [facility], [facility] 2 [place] [phone] 01/26/2025 6:45 EDT Treatment [facility] [place] [address] [place], [place] [address] Carlota Jin MD 1 [facility], [facility] 2 [place] [phone] 01/29/2025 6:45 EDT Treatment [facility] [place] [address] [place] [address] Carlota Jin MD 1 [facility], [facility] 2 [place] [phone] 01/31/2025 6:45 EDT Treatment [facility] [place] [address] [place] [address] Carlota Jin MD 1 [facility], [facility] 2 [place] [phone] 02/02/2025 6:45 EDT Treatment [facility] [place] [address] [place] [address] Carlota Jin MD 1 [facility], [facility] 2 [place] [phone] 02/05/2025 6:45 EDT Treatment [facility] [place] [address] [place], [place] [phone] Carlota Jin MD 1 [facility], [facility] 2 [place] [phone] 02/07/2025 6:45 EDT Treatment [facility] [place] [address] [place], [place] [phone] Carlota Jin MD 1 [facility], [facility] 2 [place] [phone] 02/09/2025 6:45 EDT Treatment [facility] [place] [address] [place], [place] [phone] Carlota Jin MD 1 [facility], [facility] 2 [place] [phone] 02/12/2025 6:45 EDT Treatment [facility] [place] [address] [place] [address] Carlota Jin MD 1 [facility], [address] [phone] 02/14/2025 6:45 EDT Treatment [facility] [place] [address] [place], [place] [phone] Carlota Jin MD 1 [facility], [facility] 2 [place] [phone] 02/16/2025 6:45 EDT Treatment [facility] [place] [address] [place], [place] [phone] Carlota Jin MD 1 [facility], [facility] 2 [place] [phone] 02/19/2025 6:45 EDT Treatment [facility] [place] [address] [place], [place] [phone] Carlota Jin MD 1 [facility], Level [address] [place] [phone] 02/21/2025 6:45 EDT Treatment [facility] [address] [place], [place] [phone] Carlota Jin MD 1 [facility], [facility] [address] [place] [phone] documented as of this encounter Visit Diagnoses Not on filedocumented in this encounter Care Teams Paediatrician Relationship Specialty Start Date End Date Ken Greer MD [address] [place] [address] PCP - General 07/07/23 Kiel Powers Rn Delivery Nephrology 05/31/24 documented as of this encounter
--- OUTSIDE RECORDS SUMMARY | 2024-12-05 11:58 | XMS_ITS | Encounter Summary ---
Author Organization [facility] Address [address] [place] [address] Care Team Providers Care Hand Cultivator Name Role Phone Ken Greer MD Primary Care Provider [phone] Kiel Powers Unavailable Unavailable Reason for Visit * Episode Based Medications (Routine) - New Request Specialty Diagnoses / Procedures Referred By Nader gardiner Referred To Contact Diagnoses ESRD (end stage renal disease) ([facility]) Carlota Jin MD [address] [place] [address] 2 [place] [address] Phone: tel: fax: [facility] [place] [address] [place] [address] Phone: tel: fax: Referral ID Status Reason Start Date Expiration Date V isits Requested Visits Authorized [id number] New Request 03/17/2024 1 1 Encounter Details Date Type Department Care Team (Latest Contact Info) Description 08/18/2024 6:45 EDT Treatment [facility] [address] [place], [place] [phone] Carlota Jin MD [address] [place] [address], [facility] 2 [place] [address] ESRD (end stage renal disease) ([facility]) (Primary Dx); Hypoalbuminemia; Secondary hyperparathyroidism ([facility]) Social History Tobacco Use Types Packs/Day Years Used Date Smoking Tobacco: Every Day Cigarettes 1 26.1 Started: 1998 Smokeless Tobacco: Never Alcohol Use Standard Drinks/Week Comments Yes 0 (1 standard drink = 0.6 oz pur e alcohol) Socially [facility] Utilities Answer Date Recorded In the [...] time in the past 12 m [facility], were you homeless or living [...] In the past 12 months has th [employer], gas, oil, or water [employer] threatened to shut off services in your [...] - Temperature - - Respiratory Rate 16 08/18/2024 0620 EDT Oxygen Saturation - - Inhaled Oxygen Concentration - - Weight 80.2 kg (176 lb 12.9 oz) 08/18/2024 0624 EDT Height - - Body Mass Index 25.37 [...] Flowsheet Note - Marcela Cox RN - 08/18/2024 1242 EDT 08/18/24 1055 Post-Hemodialysis Assessment Total Blood Processed (L) 86.42 Liters On Line Clearance: spKt/V 1.39 spKt/V Dialyzer Clearance Lightly streaked Treatment UFR (ml:kg:hr) 12.16 ml:kg:hr Final Critline Profile (%/hr) -3.01 Final Profile Profile B Fluid Removed (L) 4.3 L Post-Dialysis Scale Weight 95.2 kg (209 lb 14.1 oz) Wheelchair Weight 19 kg (41 lb 14.2 oz) Prosthesis Weight 0 kg (0 lb) Post-Treatment Weight (kg) 76.2 Treatment Weight Change (kg) 4 kg Day Target Weight (kg) 76.4 Post Sitting/Lying BP 168/85 Post Sitting/Lying pulse 69 Temp 36.2 ??C (97.2 ??F) Temp src Temporal Minutes Short -259 Post access assessment AVF/AFG Hemostasis achieved Yes [...] - [place] [address] [place], [place] [phone] Carlota Jin MD 1 [facility], [facility] 2 [place] [phone] 12/08/2024 6:45 EST Treatment [facility] [address] [place], [place] [phone] Carlota Jin MD 1 [facility], [address] [phone] 12/11/2024 6:45 EST Treatment [facility] [address] [place], [place] [phone] Carlota Jin MD 1 [facility], [address] [phone] 12/13/2024 6:45 EST Treatment [facility] [address] [place], [place] [phone] Carlota Jin MD 1 [facility], [address] [phone] 12/15/2024 6:45 EST Treatment [facility] [address] [place], [place] [phone] Carlota Jin MD [address] [phone] 12/18/2024 6:45 EST Treatment [facility] [place] [address] [place], [place] [phone] Carlota Jin MD 1 [facility], [facility] 2 [place] [phone] 12/20/2024 6:45 EST Treatment [facility] [place] [address] [place], [place] [phone] Carlota Jin MD 1 [facility], [facility] 2 [place] [phone] 12/22/2024 6:45 EST Treatment [facility] [place] [address] [place], [place] [phone] Carlota Jin MD 1 [facility], [facility] 2 [place] [phone] 12/25/2024 6:45 EST Treatment [facility] [place] [address] [place], [place] [phone] Carlota Jin MD 1 [facility], [facility] 2 [place] [phone] 12/27/2024 6:45 EST Treatment [facility] [place] [address] [place], [place] [phone] Carlota Jin MD 1 [facility], [facility] 2 [place] [phone] 12/29/2024 6:45 EST Treatment [facility] [place] [address] [place], [place] [phone] Carlota Jin MD 1 [facility], [facility] 2 [place] [phone] 01/01/2025 6:45 EDT Treatment [facility] [place] [address] [place], [place] [address] Carlota Jin MD 1 [facility], [facility] [address] [place] [phone] 01/03/2025 6:45 EDT Treatment [facility] [place] [address] [place], [place] [phone] Carlota Jin MD 1 [facility], [facility] 2 [place] [phone] 01/05/2025 6:45 EDT Treatment [facility] [place] [address] [place] [address] Carlota Jin MD 1 [facility], [facility] 2 [place] [phone] 01/08/2025 6:45 EDT Treatment [facility] [place] [address] [place] [address] Carlota Jin MD 1 [facility], [facility] 2 [place] [phone] 01/10/2025 6:45 EDT Treatment [facility] [place] [address] [place], [place] [phone] Carlota Jin MD 1 [facility], [facility] [address] [place] [phone] 01/12/2025 6:45 EDT Treatment [facility] [place] [address] [place], [place] [phone] Carlota Jin MD 1 [facility], [facility] 2 [place] [phone] 01/15/2025 6:45 EDT Treatment [facility] [place] [address] [place], [place] [phone] Carlota Jin MD 1 [facility], [facility] [address] [place] [phone] 01/17/2025 6:45 EDT Treatment [facility] [place] [address] [place] [address] Carlota Jin MD 1 [facility], [address] [phone] 01/19/2025 6:45 EDT Treatment [facility] [place] [address] [place], [place] [phone] Carlota Jin MD 1 [facility], [facility] [address] [place] [phone] 01/22/2025 6:45 EDT Treatment [facility] [place] [address] [place], [place] [phone] Carlota Jin MD 1 [facility], [facility] [address] [place] [phone] 01/24/2025 6:45 EDT Treatment [facility] [place] [address] [place] [address] Carl[address] Jin MD 1 [facility], [facility] 2 [place] [phone] 01/26/2025 6:45 EDT Treatment [facility] [place] [address] [place] [address] Carlota Jin MD 1 [facility], [facility] 2 [place] [phone] 01/29/2025 6:45 EDT Treatment [facility] [place] [address] [place] [address] Carlota Jin MD 1 [facility], [address] [phone] 01/31/2025 6:45 EDT Treatment [facility] [place] [address] [place] [address] Carlota Jin MD 1 [facility], [facility] [address] [place] [phone] 02/02/2025 6:45 EDT Treatment [facility] [place] [address] [place] [address] Carlota Jin MD 1 [facility], [facility] 2 [place] [phone] 02/05/2025 6:45 EDT Treatment [facility] [place] [address] [place], [place] [phone] Carlota Jin MD 1 [facility], [facility] 2 [place] [phone] 02/07/2025 6:45 EDT Treatment [facility] [place] [address] [place], [place] [address] Carlota Jin MD 1 [facility], [facility] 2 [place] [phone] 02/09/2025 6:45 EDT Treatment [facility] [place] [address] [place], [place] [phone] Carlota Jin MD [address] [place] [address], [facility] [address] [place] [phone] 02/12/2025 6:45 EDT Treatment [facility] [place] [address] [place], [place] [phone] Carlota Jin MD 1 [facility], [facility] 2 [place] [phone] 02/14/2025 6:45 EDT Treatment [facility] [place] [address] [place] [address] Carlota Jin MD [address] [place] [address], [facility] [address] [place] [phone] 02/16/2025 6:45 EDT Treatment [facility] [place] [address] [place], [place] [phone] Carlota Jin MD 1 [facility], [facility] 2 [place] [phone] 02/19/2025 6:45 EDT Treatment [facility] [place] [address] [place], [place] [id number] Carlota Jin MD 1 [facility] Level [address] [place] [address] 02/21/2025 6:45 EDT Treatment [facility] [address] [place], [place] [phone] Carlota Jin MD 1 [facility], [facility] 2 [place] [phone] documented as of this encounter Procedures Procedure Name Priority Date/Time Associated Diagnosis Comments HEMODIALYSIS Routine 08/18/2024 6:20 EDT ESRD (end stage renal disease) ([facility]) documented in this encounter Visit Diagnoses Diagnosis ESRD (end stage renal disease) ([facility])- Primary End stage renal disease Hypoalbuminemia Other disorders of plasma protein metabolism Secondary hyperparathyroidism ([facility]) Secondary hyperparathyroidism (of renal origin) documented in this encounter Administered Medications Inactive Administered Medications - up to 3 most recent administrations Medication Order MAR Action Action Date Dose Rate Site calcium carbonate (TUMS) tablet 500 mg (200 mg elemental calcium) 2 Tablet 2 Tablet, oral, ONCE IN DIALYSIS, 1 dose, On Wed08/18/24 at 0645, Routine, DialysisIndications:ESRD (end stage renal disease) ([facility]),Secondary hyperparathyroidism ([facility]) Given 08/18/2024 6:29 EDT 2 Tablets epoetin ken (EPOGEN) 20,000 unit/2 mL injection 9,000 Units 9,000 Units, intravenous, ONCE IN DIALYSIS, 1 dose, On Wed08/18/24 at 0645, Routine, DialysisIndications:ESRD (end stage renal disease) ([facility]) Given 08/18/2024 7:02 EDT 9,000 Units heparin injection 3,000 Units 3,000 Units, intravenous, ONCE IN DIALYSIS, 1 dose, On Wed08/18/24 at 0645, Routine, Dialysis, Now x1 bolus 1500 units to be given at the beginning of dialysis 500 units/hour to be given over the course of dialysis (3000 units total). Stop 1 hour prior to end of treatment. To be administered per Policy [id number].Indications:ESRD (end stage renal disease) ([facility]) Given 08/18/2024 7:02 EDT 3,000 Units LiquaCel liquid protein liquid 30 mL 30 mL, oral, ONCE IN DIALYSIS, 1 dose, On Wed08/18/24 at 0645, Patient's flavor preference: either, Routine, DialysisIndications:ESRD (end stage renal disease) ([facility]),Hypoalbuminemia Given 08/18/2024 6:29 EDT 30 mL documented in this encounter Orders Dialysis Count Last Ordered Date First Orde red Date HEMODIALYSIS 1 08/18/2024 documented in this encounter Care Teams Hand Cultivator Relationship Specialty Start Date End Date Ken Greer MD [address] [place] [address] PCP - General 07/07/23 Kiel Powers Senior Data Developer Nephrology 05/31/24 documented as of this encounter
--- OUTSIDE RECORDS SUMMARY | 2024-12-05 11:58 | XMS_ITS | Encounter Summary ---
Author Organization [facility] Address [address] [place] [address] Care Team Providers Care Nursing Director Name Role Phone Ken Greer MD Primary Care Provider [phone] Kiel Powers Unavailable Unavailable Reason for Visit * Episode Based Medications (Routine) - New Request Specialty Diagnoses / Procedures Referred By Nader gardiner Referred To Contact Diagnoses ESRD (end stage renal disease) ([facility]) Carlota Jin MD [address] [place] [address] 2 [place] [address] Phone: tel: fax: [facility] [place] [address] [place] [address] Phone: tel: fax: Referral ID Status Reason Start Date Expiration Date V isits Requested Visits Authorized [id number] New Request 03/17/2024 1 1 Encounter Details Date Type Department Care Team (Latest Contact Info) Description 08/16/2024 6:45 EDT Treatment [facility] [address] [place], [place] [id number] Carlota Jin MD [address] [place] [address], [facility] [address] [place] [phone] ESRD (end stage renal disease) ([facility]) (Primary Dx); Hypoalbuminemia; Secondary hyperparathyroidism ([facility]) Social History Tobacco Use Types Packs/Day Years Used Date Smoking Tobacco: Every Day Cigarettes 1 26.1 Started: 1998 Smokeless Tobacco: Never Alcohol Use Standard Drinks/Week Comments Yes 0 (1 standard drink = 0.6 oz pur e alcohol) Socially [facility] Utilities Answer Date Recorded In the [...] the past 12 months has th e [employer], gas, oil, or water [employer] threatened to shut off services in your [...] - Temperature - - Respiratory Rate 16 08/16/2024 0629 EDT Oxygen Saturation - - Inhaled Oxygen Concentration - - Weight 80.3 kg (177 lb 0.5 oz) 08/16/2024 0625 E DT Height - - Body Mass Index 25.4 [...] Flowsheet Note - Marcela Cox RN - 08/16/2024 1117 EDT 08/16/24 1045 Post-Hemodialysis Assessment Total Blood Processed (L) 90.39 Liters On Line Clearance: spKt/V 1.57 spKt/V Dialyzer Clearance Lightly streaked Treatment UFR (ml:kg:hr) 13.05 ml:kg:hr Final Critline Profile (%/hr) -3.29 Final Profile Profile B Critline refill Negative (30.0-29.9) Fluid Removed (L) 4.3 L Post-Dialysis Scale Weight 95.3 kg (210 lb 1.6 oz) Wheelchair Weight 19 kg (41 lb 14.2 oz) Prosthesis Weight 0 kg (0 lb) Post-Treatment Weight (kg) 76.3 Treatment Weight Change (kg) 4 kg Day Target Weight (kg) 76.5 Post Sitting/Lying BP 188/90 Post Sitting/Lying pulse 68 Temp 36 ??C (96.8 ??F) Temp src Temporal Minutes Short -241 Post access assessment AVF/AFG Hemostasis achieved Yes Note 10 minute holdb both sites Orientation Alert and Oriented x3 [...] Contact Info) Description 12/06/2024 6:45 EST Treatment [facility] [place] [address] [place], [place] [id number] Carlota Jin MD 1 [facility], [address] [phone] 12/08/2024 6:45 EST Treatment [facility] [place] [address] [place], [place] [phone] Calrota Jin MD [address] [place] [phone] 12/11/2024 6:45 EST Treatment [facility] [place] [address] [place], [place] [id number] Carlota Jin MD [address] [phone] 12/13/2024 6:45 EST Treatment [facility] [place] [address] [place], [place] [id number] Carlota Jin MD [address] [place] [phone] 12/15/2024 6:45 EST Treatment [facility] [place] [address] [place], [place] [id number] Carlota Jin MD [address] [place] [phone] 12/18/2024 6:45 EST Treatment [facility] [place] [address] [place], [place] [id number] Carlota Jin MD 1 [facility], [facility] 2 [place] [phone] 12/20/2024 6:45 EST Treatment [facility] [place] [address] [place], [place] [id number] Carlota Jin MD 1 [facility], [facility] [address] [place] [phone] 12/22/2024 6:45 EST Treatment [facility] [address] [place], [place] [id number] Carlota Jin MD 1 [facility], [facility] [address] [place] [phone] 12/25/2024 6:45 EST Treatment [facility] [place] [address] [place], [place] [id number] Carlota Jin MD 1 [facility], [facility] [address] [place] [phone] 12/27/2024 6:45 EST Treatment [facility] [place] [address] [place], [place] [id number] Carlota Jin MD 1 [facility], [facility] [address] [place] [phone] 12/29/2024 6:45 EST Treatment [facility] [place] [address] [place] [address] Carlota Jin MD 1 [facility], [facility] [address] [place] [phone] 01/01/2025 6:45 EDT Treatment [facility] [place] [address] [place] [address] Carlota Jin MD 1 [facility], [facility] [address] [place] [phone] 01/03/2025 6:45 EDT Treatment [facility] [place] [address] [place] [address] Carlota Jin MD 1 [facility], [address] [phone] 01/05/2025 6:45 EDT Treatment [facility] [place] [address] [place] [address] Carlota Jin MD 1 [facility], [address] [phone] 01/08/2025 6:45 EDT Treatment [facility] [place] [address] [place] [address] Carlota Jin MD 1 [facility], [facility] [address] [place] [phone] 01/10/2025 6:45 EDT Treatment [facility] [place] [address] [place], [place] [id number] Carlota Jin MD 1 [facility], [facility] [address] [place] [phone] 01/12/2025 6:45 EDT Treatment [facility] [place] [address] [place], [place] [address] Carlota Jin MD 1 [facility], [facility] [address] [place] [phone] 01/15/2025 6:45 EDT Treatment [facility] [place] [address] [place], [place] [id number] Carlota Jin MD [address] [place] [address], [facility] [address] [place] [phone] 01/17/2025 6:45 EDT Treatment [facility] [place] [address] [place], [place] [address] Carlota Jin MD 1 [facility], [facility] [address] [place] [phone] 01/19/2025 6:45 EDT Treatment [facility] [place] [address] [place], [place] [address] Carlota Jin MD [address] [place] [address], [facility] [address] [place] [phone] 01/22/2025 6:45 EDT Treatment [facility] [place] [address] [place], [place] [phone] Carlota Jin MD 1 [facility], [facility] 2 [place] [phone] 01/24/2025 6:45 EDT Treatment [facility] [place] [address] [place], [place] [address] Carlota Jin MD 1 [facility], [address] [phone] 01/26/2025 6:45 EDT Treatment [facility] [place] [address] [place], [place] [phone] Carlota Jin MD 1 [facility], [address] [phone] 01/29/2025 6:45 EDT Treatment [facility] [place] [address] [place], [place] [phone] Carlota Jin MD 1 [facility], [address] [phone] 01/31/2025 6:45 EDT Treatment [facility] [place] [address] [place], [place] [phone] Carlota Jin MD [address] [phone] 02/02/2025 6:45 EDT Treatment [facility] [place] [address] [place], [place] [phone] Carlota Jin MD [address] [phone] 02/05/2025 6:45 EDT Treatment [facility] [place] [address] [place], [place] [phone] Carlota Jin MD 1 [facility], [address] [phone] 02/07/2025 6:45 EDT Treatment [facility] [place] [address] [place], [place] [phone] Carlota Jin MD 1 [facility], [facility] 2 [place] [phone] 02/09/2025 6:45 EDT Treatment [facility] [place] [address] [place], [place] [phone] Carlota Jin MD 1 [facility], [facility] [address] [place] [phone] 02/12/2025 6:45 EDT Treatment [facility] [place] [address] [place], [place] [phone] Carlota Jin MD 1 [facility], [address] [phone] 02/14/2025 6:45 EDT Treatment [facility] [place] [address] [place] [address] Carlota Jin MD 1 [facility], [facility] [address] [place] [phone] 02/16/2025 6:45 EDT Treatment [facility] [place] [address] [place], [place] [phone] Carlota Jin MD 1 [facility], [facility] 2 [place] [phone] 02/19/2025 6:45 EDT Treatment [facility] [place] [address] [place], [place] [phone] Carlota Jin MD 1 [facility], [facility] [address] [place] [phone] 02/21/2025 6:45 EDT Treatment [facility] [place] [address] [place], [place] [phone] Carlota Jin MD 1 [facility], [facility] [address] [place] [phone] documented as of this encounter Procedures Procedure Name Priority Date/Time Associated Diagnosis Comments COMPLETE BLOOD COUNT Routine 08/16/2024 6:34 EDT ESRD (end stage renal disease) ([facility]) HEMODIALYSIS Routine 08/16/2024 6:30 EDT ESRD (end stage renal disease) ([facility]) documented in this encounter Results * (ABNORMAL) COMPLETE BLOOD COUNT (08/16/2024 6:34 EDT) WBC 7.87 4.00 - 10.40 K/cmm 08/16/2024 21:51 [facility] RBC 3.14(L) 4.36 - 5.78 M/cmm 08/16/2024 21:51 [facility] Hemoglobin 8.9(L) 13.8 - 17.3 g/dL 08/16/2024 21:51 [facility] HCT 26.9(L) 39.5 - 50.2 % 08/16/2024 21:51 [facility] MCV 86 81 - 95 fL 08/16/2024 21:51 [facility] MCH 28.3 27.6 - 33.0 pg 08/16/2024 21:51 [facility] MCHC 33.1 32.8 - 36.4 g/dL 08/16/2024 21:51 EDT [facility] RDW-CV 19.1(H) <14.2 % 08/16/2024 21:51 EDT [facility] RDW-SD 57.1(H) <46.0 fl 08/16/2024 21:51 EDT [facility] PLT 210 141 - 377 K/cmm 08/16/2024 21:51 EDT [facility] MPV 11.9 9.5 - 12.7 fL 08/16/2024 21:51 EDT [facility] Blood VENOUS BLOOD / Unknown Venipuncture / Unknown 08/16/2024 6:34 EDT 08/16/2024 6:34 EDT us Carlota Jin MD HEMATOLOGY & PF4 ORDERABL ES Final Result [facility] [address] [place], [place] [phone] documented in this encounter Visit Diagnoses Diagnosis ESRD (end stage renal disease) ([facility])- Primary End stage renal disease Hypoalbuminemia Other disorders of plasma protein metabolism Secondary hyperparathyroidism ([facility]) Secondary hyperparathyroidism (of renal origin) documented in this encounter Administered Medications Inactive Administered Medications - up to 3 most recent administrations Medication Order MAR Action Action Date Dose Rate Site acetaminophen (TYLENOL) tablet 650 mg 650 mg, oral, EVERY 4 HOURS PRN, Starting on Wed08/16/24 at 1042, Until Wed08/16/24 at 1322, Pain, Routine, DialysisIndications:ESRD (end stage renal disease) ([facility]) Given 08/16/2024 10:42 EDT 650 mg calcium carbonate (TUMS) tablet 500 mg (200 mg elemental calcium) 2 Tablet 2 Tablet, oral, ONCE IN DIALYSIS, 1 dose, On Wed08/16/24 at 0645, Routine, DialysisIndications:ESRD (end stage renal disease) ([facility]),Secondary hyperparathyroidism ([facility]) Given 08/16/2024 6:35 EDT 2 Tablets epoetin ken (EPOGEN) 20,000 unit/2 mL injection 9,000 Units 9,000 Units, intravenous, ONCE IN DIALYSIS, 1 dose, On Wed08/16/24 at 0645, Routine, DialysisIndications:ESRD (end stage renal disease) ([facility]) Given 08/16/2024 6:46 EDT 9,000 Units heparin injection 3,000 Units 3,000 Units, intravenous, ONCE IN DIALYSIS, 1 dose, On Wed08/16/24 at 0645, Routine, Dialysis, Now x1 bolus 1500 units to be given at the beginning of dialysis 500 units/hour to be given over the course of dialysis (3000 units total). Stop 1 hour prior to end of treatment. To be administered per Policy [id number].Indications:ESRD (end stage renal disease) ([facility]) Given 08/16/2024 6:46 EDT 3,000 Units LiquaCel liquid protein liquid 30 mL 30 mL, oral, ONCE IN DIALYSIS, 1 dose, On Wed08/16/24 at 0645, Patient's flavor preference: either, Routine, DialysisIndications:ESRD (end stage renal disease) ([facility]),Hypoalbuminemia Given 08/16/2024 6:35 EDT 30 mL documented in this encounter Orders Dialysis Count Last Ordered Date First Orde red Date HEMODIALYSIS 1 08/16/2024 documented in this encounter Care Teams Nursing Director Relationship Specialty Start Date End Date Ken Greer MD [address] [place] [address] PCP - General 07/07/23 Kiel Powers [employer] Neph[facility] 05/31/24 documented as of this encounter
--- OUTSIDE RECORDS SUMMARY | 2024-12-05 11:58 | XMS_ITS | Encounter Summary ---
Author Organization [facility] Address [address] [place] [address] Care Team Providers Care Substance Abuse Prevention Coordinator Name Role Phone Ken Greer MD Primary Care Provider [phone] Kiel Powers Unavailable Unavailable Reason for Visit * Episode Based Medications (Routine) - New Request Specialty Diagnoses / Procedures Referred By Nader gardiner Referred To Contact Diagnoses ESRD (end stage renal disease) ([facility]) Carlota Jin MD [address] [place] [address], [facility] [address] [place] [address] Phone: tel: fax: [facility] [employer] [address] [place] [address] Phone: tel: fax: Referral ID Status Reason Start Date Expiration Date V isits Requested Visits Authorized [id number] New Request 03/17/2024 1 1 Encounter Details Date Type Department Care Team (Latest Contact Info) Description 08/09/2024 6:45 EDT Treatment [facility] [address] [place], [place] [id number] Carlota Jin MD [address] [place] [address], [facility] [address] [place] [address] ESRD (end stage renal disease) ([facility]) (Primary Dx); Hypoalbuminemia; Secondary hyperparathyroidism ([facility]) Social History Tobacco Use Types Packs/Day Years Used Date Smoking Tobacco: Every Day Cigarettes 1 26.1 Started: 1998 Smokeless Tobacco: Never Alcohol Use Standard Drinks/Week Comments Yes 0 (1 standard drink = 0.6 oz pur e alcohol) Socially [facility] Utilities Answer Date Recorded In [...] in the past 12 m [facility], were you homeless or living in a [...] the past 12 months has th e [place], gas, oil, or water [employer] threatened to shut off services in your [...] - Temperature - - Respiratory Rate 16 08/09/2024 0626 EDT Oxygen Saturation - - Inhaled Oxygen Concentration - - Weight 79.2 kg (174 lb 9.7 oz) 08/09/2024 0624 E DT Height - - Body Mass Index 25.05 [...] Flowsheet Note - Marcela Cox RN - 08/09/2024 1324 EDT 08/09/24 1044 Post-Hemodialysis Assessment Total Blood Processed (L) 89.78 Liters On Line Clearance: spKt/V 1.63 spKt/V Dialyzer Clearance Lightly streaked Treatment UFR (ml:kg:hr) 14.29 ml:kg:hr Critline refill Not done Fluid Removed (L) 4.2 L Post-Dialysis Scale Weight 94.3 kg (207 lb 14.3 oz) Wheelchair Weight 19.5 kg (42 lb 15.8 oz) Prosthesis Weight 0 kg (0 lb) Post-Treatment Weight (kg) 74.8 Treatment Weight Change (kg) 4.4 kg Day Target Weight (kg) 75.5 Post Sitting/Lying BP 169/79 Post Sitting/Lying pulse 67 Temp 36.7 ??C (98.1 ??F) Temp src Temporal Minutes Short -247 Post access assessment AVF/AFG Hemostasis achieved Yes Note pt held for 10 min with blue clamps Orientation Alert and Oriented x3 Yes Time Yes Place Yes Person Yes Cooperative Yes Disoriented No Discharge Ambulation Methods Departs via w/c Wrap up items Patient Response to Treatment Tolerated tx well. Removed 4.2L UF goal without difficulty. Comments no concerns voiced post tx. documented in this encounter Plan of Treatment Upcoming Encounters Date Type Department Care Team (Late st Contact Info) Description 12/06/2024 6:45 EST [facility] [address] [place], [place] [id number] Carlota Jin MD [facility], [facility] [address] [place] [phone] 12/08/2024 6:45 EST Treatment [facility] [address] [place], [place] [id number] Carlota Jin MD [facility], [address] [phone] 12/11/2024 6:45 EST [facility] [address] [place], [place] [id number] Carlota Jin MD [facility], [address] [phone] 12/13/2024 6:45 EST Treatment [facility] [address] [place], [place] [id number] Carlota Jin MD [facility], [address] [phone] 12/15/2024 6:45 EST Treatment [facility] [address] [place], [place] [id number] Carlota Jin MD [facility], [facility] [address] [place] [phone] 12/18/2024 6:45 EST Treatment [facility] [employer] [address] [place], [place] [address] Carlota Jin MD 1 [facility], [facility] [address] [place] [phone] 12/20/2024 6:45 EST Treatment [facility] [employer] [address] [place], [place] [id number] Carlota Jin MD [facility], [facility] [address] [place] [phone] 12/22/2024 6:45 EST Treatment [facility] [employer] [address] [place], [place] [id number] Carlota Jin MD 1 [facility], [facility] [address] [place] [phone] 12/25/2024 6:45 EST Treatment [facility] [employer] [address] [place], [place] [id number] Carlota Jin MD [facility], [facility] [address] [place] [phone] 12/27/2024 6:45 EST Treatment [facility] [place] [address] [place], [place] [id number] Carlota Jin MD [facility], [facility] [address] [place] [phone] 12/29/2024 6:45 EST Treatment [facility] [employer] [address] [place], [place] [id number] Carlota Jin MD [facility], [facility] [address] [place] [phone] 01/01/2025 6:45 EDT Treatment [facility] [employer] [address] [place], [place] [id number] Carlota Jin MD 1 [facility], [facility] [address] [place] [phone] 01/03/2025 6:45 EDT Treatment [facility] [employer] [address] [place], [place] [id number] Carlota Jin MD 1 [facility], [facility] [address] [place] [phone] 01/05/2025 6:45 EDT Treatment [facility] [employer] [address] [place], [place] [id number] Carlota Jin MD 1 [facility], [facility] [address] [place] [phone] 01/08/2025 6:45 EDT Treatment [facility] [place] [address] [place] [address] Carlota Jin MD 1 [facility], [facility] [address] [place] [phone] 01/10/2025 6:45 EDT Treatment [facility] [employer] [address] [place], [place] [id number] Carlota Jin MD 1 [facility], [facility] [address] [place] [phone] 01/12/2025 6:45 EDT Treatment [facility] [employer] [address] [place], [place] [id number] Carlota Jin MD [facility], [facility] [address] [place] [phone] 01/15/2025 6:45 EDT Treatment [facility] [employer] [address] [place], [place] [id number] Carlota Jin MD [address] [place] [address], [address] [phone] 01/17/2025 6:45 EDT Treatment [facility] [employer] [address] [place], [place] [id number] Carlota Jin MD [address] [place] [address], [address] [phone] 01/19/2025 6:45 EDT Treatment [facility] [employer] [address] [place], [place] [id number] Carlota Jin MD [address] [place] [address], [address] [phone] 01/22/2025 6:45 EDT Treatment [facility] [place] [address] [place], [place] [id number] Carlota Jin MD [facility], [facility] [address] [place] [phone] 01/24/2025 6:45 EDT Treatment [facility] [employer] [address] [place], [place] [id number] Carlota Jin MD 1 [facility], [facility] [address] [place] [phone] 01/26/2025 6:45 EDT Treatment [facility] [employer] [address] [place], [place] [address] Carlota Jin MD 1 [facility], [facility] [address] [place] [phone] 01/29/2025 6:45 EDT Treatment [facility] [place] [address] [place] [address] Carlota Jin MD [facility], [facility] [address] [place] [phone] 01/31/2025 6:45 EDT Treatment [facility] [place] [address] [place] [address] Carlota Jin MD [facility], [facility] [address] [place] [phone] 02/02/2025 6:45 EDT Treatment [facility] [employer] [address] [place] [address] Carlota Jin MD [facility], [facility] [address] [place] [phone] 02/05/2025 6:45 EDT Treatment [facility] [employer] [address] [place], [place] [id number] Carlota Jin MD [facility], [facility] [address] [place] [phone] 02/07/2025 6:45 EDT Treatment [facility] [employer] [address] [place], [place] [id number] Carlota Jin MD [facility], [facility] [address] [place] [phone] 02/09/2025 6:45 EDT Treatment [facility] [employer] [address] [place], [place] [id number] Carlota Jin MD [facility], [facility] [address] [place] [phone] 02/12/2025 6:45 EDT Treatment [facility] [place] [address] [place] [address] Carlota iJn MD [facility], [address] [phone] 02/14/2025 6:45 EDT Treatment [facility] [place] [address] [place], [place] [id number] Carlota Jin MD [facility], [facility] [address] [place] [phone] 02/16/2025 6:45 EDT Treatment [facility] [place] [address] [place], [place] [phone] Carlota Jin MD [facility], [facility] [address] [place] [phone] 02/19/2025 6:45 EDT Treatment [facility] [employer] [address] [place], [place] [phone] Carlota Jin MD 1 [facility] Level [address] [place] [phone] 02/21/2025 6:45 EDT Treatment [facility] [employer] [address] [place], [place] [phone] Carlota Jin MD 1 [facility] [address] [place] [phone] documented as of this encounter Procedures Procedure Name Priority Date/Time Associated Diagnosis Comments COMPLETE BLOOD COUNT Routine 08/09/2024 6:29 EDT ESRD (end stage renal disease) ([facility]) HEMODIALYSIS Routine 08/09/2024 6:26 EDT ESRD (end stage renal disease) ([facility]) documented in this encounter Results * (ABNORMAL) COMPLETE BLOOD COUNT (08/09/2024 6:29 EDT) WBC 7.44 4.00 - 10.40 K/cmm 08/09/2024 21:51 [facility] RBC 3.46(L) 4.36 - 5.78 M/cmm 08/09/2024 21:51 [facility] Hemoglobin 9.6(L) 13.8 - 17.3 g/dL 08/09/2024 21:51 [facility] HCT 29.0(L) 39.5 - 50.2 % 08/09/2024 21:51 [facility] MCV 84 81 - 95 fL 08/09/2024 21:51 [facility] MCH 27.7 27.6 - 33.0 pg 08/09/2024 21:51 [facility] MCHC 33.1 32.8 - 36.4 g/dL 08/09/2024 21:51 [facility] RDW-CV 17.2(H) <14.2 % 08/09/2024 21:51 EDT [facility] RDW-SD 52.7(H) <46.0 fl 08/09/2024 21:51 EDT [facility] PLT 211 141 - 377 K/cmm 08/09/2024 21:51 EDT [facility] MPV 11.9 9.5 - 12.7 fL 08/09/2024 21:51 EDT [facility] Blood VENOUS BLOOD / Unknown Venipuncture / Unknown 08/09/2024 6:29 EDT 08/09/2024 6:30 EDT us Carlota Jin MD HEMATOLOGY & PF4 ORDERABL ES Final Result [facility] [address] [place] [address] documented in this encounter Visit Diagnoses Diagnosis ESRD (end stage renal disease) ([facility])- Primary End stage renal disease Hypoalbuminemia Other disorders of plasma protein metabolism Secondary hyperparathyroidism ([facility]) Secondary hyperparathyroidism (of renal origin) documented in this encounter Administered Medications Inactive Administered Medications - up to 3 most recent administrations Medication Order MAR Action Action Date Dose Rate Site acetaminophen (TYLENOL) tablet 650 mg 650 mg, oral, EVERY 4 HOURS PRN, Starting on Wed08/09/24 at 0943, Until Wed08/09/24 at 1524, Pain, Routine, DialysisIndications:ESRD (end stage renal disease) ([facility]) Given 08/09/2024 9:46 EDT 650 mg calcium carbonate (TUMS) tablet 500 mg (200 mg elemental calcium) 2 Tablet 2 Tablet, oral, ONCE IN DIALYSIS, 1 dose, On Wed08/09/24 at 0645, Routine, DialysisIndications:ESRD (end stage renal disease) ([facility]),Secondary hyperparathyroidism ([facility]) Given 08/09/2024 6:31 EDT 2 Tablets epoetin ken (EPOGEN) 20,000 unit/2 mL injection 9,000 Units 9,000 Units, intravenous, ONCE IN DIALYSIS, 1 dose, On Wed08/09/24 at 0645, Routine, DialysisIndications:ESRD (end stage renal disease) ([facility]) Given 08/09/2024 6:43 EDT 9,000 Units heparin injection 3,000 Units 3,000 Units, intravenous, ONCE IN DIALYSIS, 1 dose, On Wed08/09/24 at 0645, Routine, Dialysis, Now x1 bolus 1500 units to be given at the beginning of dialysis 500 units/hour to be given over the course of dialysis (3000 units total). Stop 1 hour prior to end of treatment. To be administered per Policy [id number].Indications:ESRD (end stage renal disease) ([facility]) Given 08/09/2024 6:43 EDT 3,000 Units LiquaCel liquid protein liquid 30 mL 30 mL, oral, ONCE IN DIALYSIS, 1 dose, On Wed08/09/24 at 0645, Patient's flavor preference: either, Routine, DialysisIndications:ESRD (end stage renal disease) ([facility]),Hypoalbuminemia Given 08/09/2024 6:31 EDT 30 mL documented in this encounter Orders Dialysis Count Last Ordered Date First Orde red Date HEMODIALYSIS 1 08/09/2024 documented in this encounter Care Teams Substance Abuse Prevention Coordinator Relationship Specialty Start Date End Date Ken Greer MD [address] [place] [address] PCP - General 07/07/23 Kiel Powers Embedded Systems Engineer Nephrology 05/31/24 documented as of this encounter
--- OUTSIDE RECORDS SUMMARY | 2024-12-05 11:58 | XMS_ITS | Encounter Summary ---
Author Organization [facility] Address [address] [place] [address] Care Team Providers Care Occupational Therapy Teacher Name Role Phone Ken Greer MD Primary Care Provider [phone] Kiel Powers Unavailable Unavailable Reason for Visit * Episode Based Medications (Routine) - New Request Specialty Diagnoses / Procedures Referred By Nader gardiner Referred To Contact Diagnoses ESRD (end stage renal disease) ([facility]) Carlota Jin MD [address] [place] [address] 2 [place] [address] Phone: tel: fax: [facility] [place] [address] [place] [address] Phone: tel: fax: Referral ID Status Reason Start Date Expiration Date V isits Requested Visits Authorized [id number] New Request 03/17/2024 1 1 Encounter Details Date Type Department Care Team (Latest Contact Info) Description 08/21/2024 6:45 EDT Treatment [facility] [address] [place], [place] [id number] Carlota Jin MD [address] [place] [address], [facility] [address] [place] [phone] ESRD (end stage renal disease) ([facility]) (Primary Dx); Hypoalbuminemia; Secondary hyperparathyroidism ([facility]) Social History Tobacco Use Types Packs/Day Years Used Date Smoking Tobacco: Every Day Cigarettes 1 26.1 Started: 1998 Smokeless Tobacco: Never Alcohol Use Standard Drinks/Week Comments Yes 0 (1 standard drink = 0.6 oz pur e alcohol) Socially [facility] Utilities Answer Date Recorded In [...] any time in the past 12 m [facility], were you homeless or [...] In the past 12 months has th The Smartphone Physical, gas, oil, or water [employer] threatened to shut off services in your [...] - Temperature - - Respiratory Rate 16 08/21/2024 0621 EDT Oxygen Saturation - - Inhaled Oxygen Concentration - - Weight 81.1 kg (178 lb 12.7 oz) 08/21/2024 0626 EDT Height - - Body Mass Index 25.65 [...] Flowsheet Note - Marcela Cox RN - 08/21/2024 1326 EDT 08/21/24 1043 Post-Hemodialysis Assessment Total Blood Processed (L) 89.11 Liters On Line Clearance: spKt/V 1.47 spKt/V Dialyzer Clearance Lightly streaked Treatment UFR (ml:kg:hr) 13.88 ml:kg:hr Critline refill Not done Fluid Removed (L) 4.5 L Post-Dialysis Scale Weight 93 kg (205 lb 0.4 oz) Wheelchair Weight 16.2 kg (35 lb 11.4 oz) Prosthesis Weight 0 kg (0 lb) Post-Treatment Weight (kg) 76.8 Treatment Weight Change (kg) 4.3 kg Day Target Weight (kg) 77.1 Post Sitting/Lying BP 180/83 Post Sitting/Lying pulse 63 Temp 36.7 ??C (98.1 ??F) Temp src Temporal Minutes Short -242 Post access assessment Bruit present: Yes Thrill Present AVF/AFG Hemostasis achieved Yes Note Patient held for 10mins with blue clamps and had no isses Orientation Alert and Oriented x3 Yes Time [...] [facility] [place] [address] [place], [place] [phone] Carlota Jin MD 1 [facility], [facility] [address] [place] [phone] 12/08/2024 6:45 EST Treatment [facility] [place] [address] [place], [place] [id number] Carlota Jin MD [address] [place] [phone] 12/11/2024 6:45 EST Treatment [facility] [place] [address] [place], [place] [id number] Carlota Jin MD [address] [phone] 12/13/2024 6:45 EST Treatment [facility] [place] [address] [place], [place] [id number] Carlota Jin MD [address] [place] [phone] 12/15/2024 6:45 EST Treatment [facility] [place] [address] [place], [place] [id number] Carlota Jin MD [address] [place] [phone] 12/18/2024 6:45 EST Treatment [facility] [place] [address] [place], [place] [id number] Carlota Jin MD 1 [facility], [facility] [address] [place] [phone] 12/20/2024 6:45 EST Treatment [facility] [place] [address] [place], [place] [id number] Carlota Jin MD 1 [facility], [facility] [address] [place] [phone] 12/22/2024 6:45 EST Treatment [facility] [place] [address] [place], [place] [id number] Carlota Jin MD [address] [place] [address], [facility] [address] [place] [phone] 12/25/2024 6:45 EST Treatment [facility] [place] [address] [place], [place] [id number] Carlota Jin MD 1 [facility], [facility] [address] [place] [phone] 12/27/2024 6:45 EST Treatment [facility] [place] [address] [place], [place] [id number] Carlota Jin MD 1 [facility], [facility] [address] [place] [phone] 12/29/2024 6:45 EST Treatment [facility] [place] [address] [place], [place] [id number] Carlota Jin MD 1 [facility], [facility] [address] [place] [phone] 01/01/2025 6:45 EDT Treatment [facility] [place] [address] [place], [place] [id number] Carlota Jin MD 1 [facility], [facility] [address] [place] [phone] 01/03/2025 6:45 EDT Treatment [facility] [place] [address] [place], [place] [phone] Carlota Jin MD 1 [facility], [facility] [address] [place] [phone] 01/05/2025 6:45 EDT Treatment [facility] [place] [address] [place], [place] [phone] Carlota Jin MD 1 [facility], [facility] [address] [place] [phone] 01/08/2025 6:45 EDT Treatment [facility] [place] [address] [place], [place] [phone] Carlota Jin MD 1 [facility], [facility] [address] [place] [phone] 01/10/2025 6:45 EDT Treatment [facility] [place] [address] [place], [place] [id number] Carlota Jin MD 1 [facility], [facility] [address] [place] [phone] 01/12/2025 6:45 EDT Treatment [facility] [place] [address] [place], [place] [id number] Carlota Jin MD 1 [facility], [facility] [address] [place] [phone] 01/15/2025 6:45 EDT Treatment [facility] [place] [address] [place], [place] [id number] Carlota Jin MD 1 [facility], [facility] [address] [place] [phone] 01/17/2025 6:45 EDT Treatment [facility] [place] [address] [place], [place] [id number] Carlota Jin MD 1 [facility], [address] [phone] 01/19/2025 6:45 EDT Treatment [facility] [place] [address] [place], [place] [phone] Carlota Jin MD 1 [facility], [facility] [address] [place] [phone] 01/22/2025 6:45 EDT Treatment [facility] [place] [address] [place], [place] [phone] Carlota Jin MD 1 [facility], [facility] [address] [place] [phone] 01/24/2025 6:45 EDT Treatment [facility] [place] [address] [place], [place] [phone] Carlota Jin MD 1 [facility], [facility] 2 [place] [phone] 01/26/2025 6:45 EDT Treatment [facility] [place] [address] [place] [address] Carlota Jin MD 1 [facility], [facility] [address] [place] [phone] 01/29/2025 6:45 EDT Treatment [facility] [place] [address] [place], [place] [id number] Carlota Jin MD 1 [facility], [address] [phone] 01/31/2025 6:45 EDT Treatment [facility] [place] [address] [place], [place] [id number] Carlota Jin MD 1 [facility], [address] [phone] 02/02/2025 6:45 EDT Treatment [facility] [place] [address] [place], [place] [phone] Carlota Jin MD 1 [facility], [address] [phone] 02/05/2025 6:45 EDT Treatment [facility] [place] [address] [place], [place] [phone] Carlota Jin MD 1 [facility], [facility] [address] [place] [phone] 02/07/2025 6:45 EDT Treatment [facility] [place] [address] [place], [place] [id number] Carlota Jin MD 1 [facility], [facility] [address] [place] [phone] 02/09/2025 6:45 EDT Treatment [facility] [place] [address] [place], [place] [phone] Carlota Jin MD 1 [facility], [facility] [address] [place] [phone] 02/12/2025 6:45 EDT Treatment [facility] [place] [address] [place], [place] [address] [phone] Carlota Jin MD 1 [facility], [facility] [address] [place] [phone] 02/14/2025 6:45 EDT Treatment [facility] [place] [address] [place] [address] Carlota Jin MD 1 [facility], [facility] 2 [place] [phone] 02/16/2025 6:45 EDT Treatment [facility] [place] [address] [place], [place] [phone] Carlota Jin MD 1 [facility], [facility] [address] [place] [phone] 02/19/2025 6:45 EDT Treatment [facility] [place] [address] [place] [phone] Carlota Jin MD 1 [facility], [facility] [address] [place] [phone] 02/21/2025 6:45 EDT Treatment [facility] [address] [place] [phone] Carlota Jin MD 1 [facility], [facility] [address] [place] [phone] documented as of this encounter Procedures Procedure Name Priority Date/Time Associated Diagnosis Comments HEMODIALYSIS Routine 08/21/2024 6:21 EDT ESRD (end stage renal disease) ([facility]) documented in this encounter Visit Diagnoses Diagnosis ESRD (end stage renal disease) ([facility])- Primary End stage renal disease Hypoalbuminemia Other disorders of plasma protein metabolism Secondary hyperparathyroidism ([facility]) Secondary hyperparathyroidism (of renal origin) documented in this encounter Administered Medications Inactive Administered Medications - up to 3 most recent administrations Medication Order MAR Action Action Date Dose Rate Site calcium carbonate (TUMS) tablet 500 mg (200 mg elemental calcium) 2 Tablet 2 Tablet, oral, ONCE IN DIALYSIS, 1 dose, On Wed08/21/24 at 0645, Routine, DialysisIndications:ESRD (end stage renal disease) ([facility]),Secondary hyperparathyroidism ([facility]) Given 08/21/2024 6:32 EDT 2 Tablets epoetin ken (EPOGEN) 20,000 unit/2 mL injection 9,000 Units 9,000 Units, intravenous, ONCE IN DIALYSIS, 1 dose, On Wed08/21/24 at 0645, Routine, DialysisIndications:ESRD (end stage renal disease) ([facility]) Given 08/21/2024 6:46 EDT 9,000 Units heparin injection 3,000 Units 3,000 Units, intravenous, ONCE IN DIALYSIS, 1 dose, On Wed08/21/24 at 0645, Routine, Dialysis, Now x1 bolus 1500 units to be given at the beginning of dialysis 500 units/hour to be given over the course of dialysis (3000 units total). Stop 1 hour prior to end of treatment. To be administered per Policy [id number].Indications:ESRD (end stage renal disease) ([facility]) Given 08/21/2024 6:46 EDT 3,000 Units LiquaCel liquid protein liquid 30 mL 30 mL, oral, ONCE IN DIALYSIS, 1 dose, On 08/21/24 at 0645, Patient's flavor preference: either, Routine, DialysisIndications:ESRD (end stage renal disease) ([facility]),Hypoalbuminemia Given 08/21/2024 6:32 EDT 30 mL documented in this encounter Orders Dialysis Count Last Ordered Date First Orde red Date HEMODIALYSIS 1 08/21/2024 documented in this encounter Care Teams Occupational Therapy Teacher Relationship Specialty Start Date End Date Ken Greer MD [address] [place] [address] PCP - General 07/07/23 Kiel Powers Yard [employer] Nephrology 05/31/24 documented as of this encounter
--- OUTSIDE RECORDS SUMMARY | 2024-12-05 11:58 | XMS_ITS | Encounter Summary ---
Author Organization [facility] Address [address] [place] [address] Care Team Providers Care Shirt Closer Name Role Phone Ken Greer MD Primary Care Provider [phone] Kiel Powers Unavailable Unavailable Reason for Visit * Episode Based Medications (Routine) - New Request Specialty Diagnoses / Procedures Referred By Nader gardiner Referred To Contact Diagnoses ESRD (end stage renal disease) ([facility]) Carlota Jin MD [address] [place] [address] [address] [place] [address] Phone: tel: fax: [facility] [place] [address] [place] [address] Phone: tel: fax: Referral ID Status Reason Start Date Expiration Date V isits Requested Visits Authorized [id number] New Request 03/17/2024 1 1 Encounter Details Date Type Department Care Team (Latest Contact Info) Description 08/25/2024 6:45 EDT Treatment [facility] [address] [place], [place] [phone] Carlota Jin MD [address] [place] [address], [facility] [address] [place] [address] ESRD (end stage renal disease) ([facility]) (Primary Dx); Hypoalbuminemia; Secondary hyperparathyroidism ([facility]) Social History Tobacco Use Types Packs/Day Years Used Date Smoking Tobacco: Every Day Cigarettes 1 26.1 Started: 1998 Smokeless Tobacco: Never Alcohol Use Standard Drinks/Week Comments Yes 0 (1 standard drink = 0.6 oz pur e alcohol) Socially [facility] Utilities Answer Date Recorded In the past [...] Date Record ed How often does anyone, martni lyons family and friends, physically hurt you? Never 05/30/2024 How often does anyone, martin lyons family and friends, insult or talk down to you? Never 05/30/2024 How often does anyone, martin loyns family and friends, threaten you with harm? [...] In the past 12 months has th Proficient, gas, oil, or water [employer] threatened to shut off services in your [...] - Temperature - - Respiratory Rate 16 08/25/2024 0622 EDT Oxygen Saturation - - Inhaled Oxygen Concentration - - Weight 80.2 kg (176 lb 12.9 oz) 08/25/2024 0626 EDT Height - - Body Mass [...] Flowsheet Note - Marcela Cox RN - 08/25/2024 0589 EDT 08/25/24 1046 Post-Hemodialysis Assessment Total Blood Processed (L) 89.57 Liters On Line Clearance: spKt/V 1.54 spKt/V Dialyzer Clearance Moderately streaked Treatment UFR (ml:kg:hr) 12.47 ml:kg:hr Critline refill Not done Fluid Removed (L) 4 L Post-Dialysis Scale Weight 92.5 kg (203 lb 14.8 oz) Wheelchair Weight 16.2 kg (35 lb 11.4 oz) Prosthesis Weight 0 kg (0 lb) Post-Treatment Weight (kg) 76.3 Treatment Weight Change (kg) 3.9 kg Day Target Weight (kg) 76.4 Post Sitting/Lying BP 134/83 Post Sitting/Lying pulse (!) 37 Temp 36.4 ??C (97.5 ??F) Temp src Temporal Minutes Short -246 Post access assessment AVF/AFG Hemostasis achieved Yes Note 10 min hold with blue clamps and PT had no issues Orientation Alert and Oriented x3 Yes Time Yes Place Yes Person Yes Cooperative Yes Disoriented No Discharge Ambulation Methods Departs via w/c;With patient transport Wrap up items Patient Response to Treatment Removed 4L UF goal without difficulty. Comments no concerns voiced post tx. documented in this encounter Plan of Treatment Upcoming Encounters Date Type Department Care Team (Late st Contact Info) Description 12/06/2024 6:45 EST Treatment [facility] [place] [address] [place], [place] [phone] Carlota Jin MD 1 [facility], [facility] 2 [place] [phone] 12/08/2024 6:45 EST Treatment [facility] [address] [place], [place] [phone] Carlota Jin MD 1 [facility], [address] [phone] 12/11/2024 6:45 EST Treatment [facility] [address] [place], [place] [phone] Carlota Jin MD [address] [phone] 12/13/2024 6:45 EST [facility] [address] [place], [place] [id number] Carlota Jin MD 1 [facility], [address] [phone] 12/15/2024 6:45 EST Treatment [facility] [address] [place], [place] [phone] Carlota Jin MD 1 [facility], [address] [phone] 12/18/2024 6:45 EST Treatment [facility] [place] [address] [place], [place] [id number] Carlota Jin MD 1 [facility], [facility] 2 [place] [phone] 12/20/2024 6:45 EST Treatment [facility] [place] [address] [place], [place] [phone] Carlota Jin MD 1 [facility], [facility] 2 [place] [phone] 12/22/2024 6:45 EST Treatment [facility] [place] [address] [place], [place] [phone] Carlota Jin MD 1 [facility], [facility] 2 [place] [phone] 12/25/2024 6:45 EST Treatment [facility] [place] [address] [place], [place] [phone] Carlota Jin MD 1 [facility], [facility] 2 [place] [phone] 12/27/2024 6:45 EST Treatment [facility] [place] [address] [place], [place] [phone] Carlota Jin MD 1 [facility], [facility] 2 [place] [phone] 12/29/2024 6:45 EST Treatment [facility] [place] [address] [place], [place] [phone] Carlota Jin MD 1 [facility], [facility] 2 [place] [phone] 01/01/2025 6:45 EDT Treatment [facility] [place] [address] [place], [place] [id number] Carlota Jin MD 1 [facility], [facility] 2 [place] [phone] 01/03/2025 6:45 EDT Treatment [facility] [place] [address] [place], [place] [phone] Carlota Jin MD 1 [facility], [facility] 2 [place] [phone] 01/05/2025 6:45 EDT Treatment [facility] [place] [address] [place], [place] [phone] Carlota Jin MD 1 [facility], [facility] 2 [place] [phone] 01/08/2025 6:45 EDT Treatment [facility] [place] [address] [place] [address] Carlota Jin MD 1 [facility], [facility] 2 [place] [phone] 01/10/2025 6:45 EDT Treatment [facility] [place] [address] [place], [place] [phone] Carlota Jin MD 1 [facility], [facility] 2 [place] [phone] 01/12/2025 6:45 EDT Treatment [facility] [place] [address] [place], [place] [phone] Carlota Jin MD 1 [facility], [facility] 2 [place] [phone] 01/15/2025 6:45 EDT Treatment [facility] [place] [address] [place], [place] [phone] Carlota Jin MD [address] [place] [address], [address] [phone] 01/17/2025 6:45 EDT Treatment [facility] [place] [address] [place], [place] [phone] Carlota Jin MD [address] [place] [address], [address] [phone] 01/19/2025 6:45 EDT Treatment [facility] [place] [address] [place], [place] [phone] Calrota Jin MD [address] [place] [address], [facility] 2 [place] [phone] 01/22/2025 6:45 EDT Treatment [facility] [place] [address] [place], [place] [phone] Carlota Jin MD 1 [facility], [facility] 2 [place] [phone] 01/24/2025 6:45 EDT Treatment [facility] [place] [address] [place], [place] [phone] Carlota Jin MD 1 [facility], [facility] 2 [place] [phone] 01/26/2025 6:45 EDT Treatment [facility] [place] [address] [place], [place] [phone] Carlota Jin MD 1 [facility], [facility] 2 [place] [phone] 01/29/2025 6:45 EDT Treatment [facility] [place] [address] [place], [place] [phone] Carlota Jin MD 1 [facility], [facility] 2 [place] [phone] 01/31/2025 6:45 EDT Treatment [facility] [place] [address] [place] [address] Carlota Jin MD 1 [facility], [facility] 2 [place] [phone] 02/02/2025 6:45 EDT Treatment [facility] [place] [address] [place] [address] Carlota Jin MD 1 [facility], [facility] 2 [place] [phone] 02/05/2025 6:45 EDT Treatment [facility] [place] [address] [place], [place] [phone] Carlota Jin MD 1 [facility], [facility] 2 [place] [phone] 02/07/2025 6:45 EDT Treatment [facility] [place] [address] [place], [place] [phone] Carlota Jin MD 1 [facility], [facility] 2 [place] [phone] 02/09/2025 6:45 EDT Treatment [facility] [place] [address] [place], [place] [phone] Carlota Jin MD 1 [facility], [facility] 2 [place] [phone] 02/12/2025 6:45 EDT Treatment [facility] [place] [address] [place], [place] [phone] Carlota Jin MD 1 [facility], [facility] 2 [place] [phone] 02/14/2025 6:45 EDT Treatment [facility] [place] [address] [place], [place] [address] Carlota Jin MD 1 [facility], [facility] 2 [place] [phone] 02/16/2025 6:45 EDT Treatment [facility] [place] [address] [place], [place] [phone] Carlota Jin MD 1 [facility], [facility] 2 [place] [phone] 02/19/2025 6:45 EDT Treatment [facility] [place] [address] [place], [place] [phone] Carlota Jin MD 1 [facility], Level [address] [place] [phone] 02/21/2025 6:45 EDT Treatment [facility] [place] [address] [place] [address] Carlota Jin MD 1 [facility], Level [address] [place] [phone] documented as of this encounter Procedures Procedure Name Priority Date/Time Associated Diagnosis Comments POCT GLUCOSE, INTERFACED Routine 08/25/2024 10:09 EDT HEMODIALYSIS Routine 08/25/2024 6:22 EDT ESRD (end stage renal disease) ([facility]) documented in this encounter Results * (ABNORMAL) POCT GLUCOSE, INTERFACED (08/25/2024 10:09 EDT) Glucose, POC 131(H) 70 - 100 mg/dL 08/25/2024 11:07 EDT [facility] HN LAB POC COMMENT (GLUCOSE) Test Performed by Nursing Services 08/25/2024 11:07 EDT [facility] Blood CAPILLARY BLOOD / Unknown 08/25/2024 10:09 EDT 08/25/2024 11:07 EDT us Carlota Jin MD POINT OF CARE TEST ORDERA BLES Final Result [facility] [address] [place] [address] documented in this encounter Visit Diagnoses Diagnosis ESRD (end stage renal disease) ([facility])- Primary End stage renal disease Hypoalbuminemia Other disorders of plasma protein metabolism Secondary hyperparathyroidism ([facility]) Secondary hyperparathyroidism (of renal origin) documented in this encounter Administered Medications Inactive Administered Medications - up to 3 most recent administrations Medication Order MAR Action Action Date Dose Rate Site calcium carbonate (TUMS) tablet 500 mg (200 mg elemental calcium) 2 Tablet 2 Tablet, oral, ONCE IN DIALYSIS, 1 dose, On Wed08/25/24 at 0645, Routine, DialysisIndications:ESRD (end stage renal disease) ([facility]),Secondary hyperparathyroidism ([facility]) Given 08/25/2024 6:31 EDT 2 Tablets epoetin ken (EPOGEN) 20,000 unit/2 mL injection 9,000 Units 9,000 Units, intravenous, ONCE IN DIALYSIS, 1 dose, On Wed08/25/24 at 0645, Routine, DialysisIndications:ESRD (end stage renal disease) ([facility]) Given 08/25/2024 6:44 EDT 9,000 Units heparin injection 3,000 Units 3,000 Units, intravenous, ONCE IN DIALYSIS, 1 dose, On Wed08/25/24 at 0645, Routine, Dialysis, Now x1 bolus 1500 units to be given at the beginning of dialysis 500 units/hour to be given over the course of dialysis (3000 units total). Stop 1 hour prior to end of treatment. To be administered per Policy [id number].Indications:ESRD (end stage renal disease) ([facility]) Given 08/25/2024 6:44 EDT 3,000 Units LiquaCel liquid protein liquid 30 mL 30 mL, oral, ONCE IN DIALYSIS, 1 dose, On Wed08/25/24 at 0645, Patient's flavor preference: either, Routine, DialysisIndications:ESRD (end stage renal disease) ([facility]),Hypoalbuminemia Given 08/25/2024 6:31 EDT 30 mL documented in this encounter Orders Dialysis Count Last Ordered Date First Orde red Date HEMODIALYSIS 1 08/25/2024 documented in this encounter Care Teams Shirt Closer Relationship Specialty Start Date End Date Ken Greer MD [address] [place] [address] PCP - General 07/07/23 Kiel Powers Private Duty Lpn Nephrology 05/31/24 documented as of this encounter
--- OUTSIDE RECORDS SUMMARY | 2024-12-05 11:58 | XMS_ITS | Encounter Summary ---
Author Organization [facility] Address [address] [place] [address] Care Team Providers Care Products Mechanical Design Engineer Name Role Phone Ken Greer MD Primary Care Provider [phone] Kiel Powers Unavailable Unavailable Encounter Details Date Type Department Care Team (Late st Contact Info) Description 08/18/2024 Documentation Visit [facility] [address] [place] [address] Shelley Eden, RD [address] [place] [address] Social History Tobacco Use Types Packs/Day Years Used Date Smoking Tobacco: Every Day Cigarettes 1 26.1 Started: 1998 Smokeless Tobacco: Never Alcohol Use Standard Drinks/Week Comments Yes 0 (1 standard drink = 0.6 oz pur e alcohol) Socially [facility] Utilities Answer Date Recorded In the past 12 months has e [email or web address], gas, oil, or water [employer] threatened to shut off services in your [...] any time in the past 12 m [facility], were you homeless or living in a snf (including now)? No 05/30/2024 Interpersonal Safety Answer Date Record ed How often does anyone, martin [employer] family, hit, punch or physically hurt you? 05/30/2024 How often does anyone, martin lyons family, insult, scream, curse or threaten to hurt you? 05/30/2024 Living Situation Answer Date Recorded What is your living situation today? 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 Baldemar reports that Xander does not sleep well at their home d/t noise in the house. They should be moving into their own place in August. Xander continues to eat well at home - baldemar notes he cont to want soup often. She tries to limit his fluid, saltand encourage binders. We discussed continued high phos and K level - MD sent in script for kayexalate which he is now taking - reinforced with pt why this med is important. Also reinforced taking binders - encouraged 3 at all meals . Per RN at Xander had some chocking / swallow issues - talked with Baldemar and Xander about this - Xander said it was nothing only a little ice. Baldemar reported no issues noted at home but she said she did call the Doc office to see about getting him checked out for this. Appetite: Very good / increased Appetite scale (0-10): No number given Gastrointestinal: Some N/V on occasion Skin integrity: S/p amputations - now all healed pper Diabetes: Yes all over had a low of 28 recently Diabetes Management: Self Monitoring of Blood Glucose on insulin Diet Recall: B sausage egg and coffee L beef soup with lentils and turkey s/w and tea D pot roast with potato and carrots Fluid: Water, Coffee, Milk, Juice, tea Alcohol: will need to f/u Prescribed Weight:75.5 Post-Dialytic Weight: 76.2 08/09/2024 10:44 08/11/2024 10:39 08/14/2024 10:57 08/16/2024 10:45 08/18/2024 10:55 - ( Kg ) 74.8 75.4 76.8 76.3 76.2 UFR: 08/09/2024 10:44 08/11/2024 10:39 08/14/2024 10:57 08/16/2024 10:45 08/18/2024 10:55 - mL/Kg/hr 14.29 ml:kg:hr 8.92 ml:kg:hr 13.59 ml:kg:hr 13.05 ml:kg:hr 12.16 ml:kg:hr URR: 72.34 (Calculated from:; BUN Pre-Dialysis: 94 mg/dL at 07/31/2024 11:10; BUN Post-Dialysis: 26 mg/dL at 07/31/2024 11:10) Kt/V: 1.54 (Calculated from:; BUN Pre-Dialysis: 94 mg/dL at 07/31/2024 11:10; BUN Post-Dialysis: 26 mg/dL at 07/31/2024 11:10; Pre-Treatment Weight (kg): 78.9 at 07/31/2024 6:30; Post-Treatment Weight (kg): 75.7 at 07/31/2024 10:49; Duration of Treatment (minutes): 246 minutes at 07/31/2024 10:49) PCR: 1.66 (Calculated from:; BUN Pre-Dialysis: 94 mg/dL at 07/31/2024 11:10; BUN Post-Dialysis: 26 mg/dL at 07/31/2024 11:10; Pre-Treatment Weight (kg): 78.9 at 07/31/2024 6:30; Post-Treatment Weight (kg): 75.7 at 07/31/2024 10:49; Duration of Treatment (minutes): 246 minutes at 07/31/2024 10:49; Age: 58 years) Pertinent Labs include: Lab Results Component Value Date LABALBU 3.1 (L) 07/31/2024 LABALBU 3.2 (L) 06/26/2024 Lab Results Component Value Date BUNPRE 94 (H) 07/31/2024 BUNPRE 94 (H) 07/31/2024 NA 137 07/31/2024 NA 132 (L) 06/26/2024 K 6.6 (H) 07/31/2024 K 7.5 (HH) 07/10/2024 CL 100 07/31/2024 CL 96 06/26/2024 CO2 19 (L) 07/31/2024 CO2 22 06/26/2024 MG 2.1 07/31/2024 MG 2.0 06/26/2024 CALCIUM 8.1 (L) 07/31/2024 CALCIUM 8.6 06/26/2024 CALCCA 8.8 (L) 07/31/2024 CALCCA 9.2 06/26/2024 PHOS 10.0 (H) 07/31/2024 PHOS 8.9 (H) 06/26/2024 ALKPHOS 97 07/31/2024 ALKPHOS 124 06/26/2024 PTH 712 (H) 07/31/2024 PTH 250 (H) 05/01/2024 PLT 210 08/16/2024 PLT 211 08/09/2024 MCV 86 08/16/2024 MCV 84 08/09/2024 [id number] 607 10/27/2023 [id number] 11/16/2022 VITD 21 (L) 10/27/2023 VITD 27 (L) 11/16/2022 FOLATE >24.0 10/27/2023 FOLATE 17.3 11/16/2022 HGBA1C 11.6 (H) 11/07/2023 Protein/calorie supplements: liqaucel on HD days protein powder at home (orgain)- recmd to restart Renal/other vitamins: cholecalciferol (Vitamin D3) - 2000 IU daily Started renal vitamin Herbal/OTC supplements: None reported CKD/MBD medications: sevelamer hydrochloride - 3 at meals - not consistent 2 tums at HD Other Medications Relevant to Nutrition: atorvastatin - 40 mg sevelamer carbonate - 800 mg sodium polystyrene insulin aspart U-100 - 100 unit/mL (3 mL) insulin glargine - 100 unit/mL (3 mL) insulin lispro - 100 unit/mL Assessment Nutrition status / Adequacy of intake: Xander has been eating better per his report- encouraged HBV protein and use of protein powder - albumin improving. Will cont liquacel at HD. . Wt has declined about 10 kg this year r/t recent amputations however wt has been stable these last 3 months. At his current wt his BMI is 28 adjusted for amps Weight/Volume status: fluid gains often high 3.5-58.8 UFR 12-13 Electrolytes: K-high - pt now on kayexalate - have discussed at length with pt and and provided extensive potassium education sheets/ info Na WNL Mg WNL Mineral Bone Disease: Ca low r/t high phos - could add Ca based binder Phos chronically high - on 2 tums at HD,3 Renvela TID with meals PTH WNL - no [...] April 2024 Potassium education - May 2024 Assessment of Understanding: needs reinforcement Medical Nutrition Therapy Plan and Recommendation Revd high phos foods to limit monthly - Encourage consistency with binders and to avoid processed foods Cont liquacel at HD restart protein powder at home -reinforced high protein needs Cont vitamin D3, and renal vitamin 4. Revd fluid management tips and encouraged to avoid salt 5. Discussed high k level and revd diet - encouraged to take kayexalate as prescribed Shelley Eden RD, CD documented in this encounter Plan of Treatment Upcoming Encounters Date Type Department Care Team (Late st Contact Info) Description 12/06/2024 6:45 EST Treatment [facility] [address] [place], [place] [id number] Carlota Jin MD [address] [phone] 12/08/2024 6:45 EST Treatment [facility] [address] [place], [place] [id number] Carlota Jin MD 1 [facility] [address] [place] [phone] 12/11/2024 6:45 EST Treatment [facility] [address] [place], [place] [id number] Carlota Jin MD 1 [facility] [address] [place] [phone] 12/13/2024 6:45 EST Treatment [facility] [place] [address] [place], [place] [id number] Carlota Jin MD [address] [facility], [facility] [address] [place] [phone] 12/15/2024 6:45 EST Treatment [facility] [place] [address] [place], [place] [id number] Carlota Jin MD [address] [facility], [facility] [address] [place] [phone] 12/18/2024 6:45 EST Treatment [facility] [place] [address] [place], [place] [id number] Carlota Jin MD [address] [facility], [facility] [address] [place] [phone] 12/20/2024 6:45 EST Treatment [facility] [place] [address] [place], [place] [id number] Carlota Jin MD [address] [facility], [facility] [address] [place] [phone] 12/22/2024 6:45 EST Treatment [facility] [place] [address] [place], [place] [id number] Carlota Jin MD [address] [facility], [facility] [address] [place] [phone] 12/25/2024 6:45 EST Treatment [facility] [place] [address] [place], [place] [id number] Carlota Jin MD 1 [facility] [address] [place] [phone] 12/27/2024 6:45 EST Treatment [facility] [place] [address] [place], [place] [id number] Carlota Jin MD 1 [facility] [address] [place] [phone] 12/29/2024 6:45 EST Treatment [facility] [place] [address] [place], [place] [id number] Carlota Jin MD 1 [facility], [address] [phone] 01/01/2025 6:45 EDT Treatment [facility] [place] [address] [place], [place] [phone] Carlota Jin MD [address] [facility], [address] [phone] 01/03/2025 6:45 EDT Treatment [facility] [address] [place] [address] Carlota Jin MD [address] [facility], [facility] [address] [place] [phone] 01/05/2025 6:45 EDT Treatment [facility] [address] [place], [place] [id number] Carlota Jin MD [address] [facility], [facility] [address] [place] [phone] 01/08/2025 6:45 EDT Treatment [facility] [place] [address] [place], [place] [id number] Carlota Jin MD [address] [facility], [facility] [address] [place] [phone] 01/10/2025 6:45 EDT Treatment [facility] [place] [address] [place], [place] [id number] Carlota Jin MD [address] [facility], [address] [phone] 01/12/2025 6:45 EDT Treatment [facility] [place] [address] [place], [place] [id number] Carlota Jin MD [address] [facility], [address] [phone] 01/15/2025 6:45 EDT Treatment [facility] [place] [address] [place], [place] [id number] Carlota Jin MD [address] [facility], [facility] [address] [place] [phone] 01/17/2025 6:45 EDT Treatment [facility] [address] [place], [place] [phone] Carlota Jin MD [address] [facility], [facility] [address] [place] [phone] 01/19/2025 6:45 EDT Treatment [facility] [place] [address] [place], [place] [id number] Carlota Jin MD 1 [facility] [address] [place] [phone] 01/22/2025 6:45 EDT Treatment [facility] [place] [address] [place], [place] [id number] Carlota Jin MD 1 [facility] [address] [place] [phone] 01/24/2025 6:45 EDT Treatment [facility] [place] [address] [place] [address] Carlota Jin MD 1 [facility], [facility] [address] [place] [phone] 01/26/2025 6:45 EDT Treatment [facility] [place] [address] [place] [address] [address]ota [address] MD [address] [facility], [facility] [address] [place] [phone] 01/29/2025 6:45 EDT Treatment [facility] [place] [address] [place] [address] Carlota Jin MD 1 [facility], [facility] [address] [place] [phone] 01/31/2025 6:45 EDT Treatment [facility] [place] [address] [place], [place] [id number] Carlota Jin MD [address] [facility], [facility] [address] [place] [phone] 02/02/2025 6:45 EDT Treatment [facility] [place] [address] [place], [place] [id number] Carlota Jin MD 1 [facility], [facility] [address] [place] [phone] 02/05/2025 6:45 EDT Treatment [facility] [place] [address] [place], [place] [id number] Carlota Jin MD [address] [facility], [facility] [address] [place] [phone] 02/07/2025 6:45 EDT Treatment [facility] [place] [address] [place] [address] Carlota Jin MD 1 [facility], [address] [phone] 02/09/2025 6:45 EDT Treatment [facility] [place] [address] [place], [place] [id number] Carlota Jin MD 1 [facility], [facility] [address] [place] [phone] 02/12/2025 6:45 EDT Treatment [facility] [place] [address] [place], [place] [id number] Carlota Jin MD 1 [facility], [facility] [address] [place] [phone] 02/14/2025 6:45 EDT Treatment [facility] [place] [address] [place], [place] [id number] Carlota Jin MD 1 [facility], [facility] [address] [place] [phone] 02/16/2025 6:45 EDT Treatment [facility] [place] [address] [place], [place] [id number] Carlota Jin MD [address] [facility], [facility] [address] [place] [phone] 02/19/2025 6:45 EDT Treatment [facility] [address] [place], [place] [id number] Carlota Jin MD [address] [facility], [facility] [address] [place] [phone] 02/21/2025 6:45 EDT Treatment [facility] [address] [place], [place] [phone] Carlota Jin MD [address] [facility], [facility] [address] [place] [phone] documented as of this encounter Visit Diagnoses Not on filedocumented in this encounter Care Teams Products Mechanical Design Engineer Relationship Specialty Start Date End Date [place] [address] PCP - General 07/07/23 Kiel Powers Acquisition Lead Nephrology 05/31/24 documented as of this encounter
--- OUTSIDE RECORDS SUMMARY | 2024-12-05 11:58 | XMS_ITS | Encounter Summary ---
Author Organization [facility] Address [address] [place] [address] Care Team Providers Care Parts Department Manager Name Role Phone Ken Greer MD Primary Care Provider [phone] Kiel Powers Unavailable Unavailable Reason for Visit * Episode Based Medications (Routine) - New Request Specialty Diagnoses / Procedures Referred By Nader gardiner Referred To Contact Diagnoses ESRD (end stage renal disease) ([facility]) Carlota Jin MD [address] [place] [address], [facility] [address] [place] [address] Phone: tel: fax: [facility] [place] [address] [place] [address] Phone: tel: fax: Referral ID Status Reason Start Date Expiration Date V isits Requested Visits Authorized [id number] New Request 03/17/2024 1 1 Encounter Details Date Type Department Care Team (Latest Contact Info) Description 08/28/2024 6:45 EST Treatment [facility] [address] [place] [id number] Carlota Jin MD [address] [place] [address], [facility] [address] [place] [address] ESRD (end stage renal disease) ([facility]) (Primary Dx); Hypoalbuminemia; Secondary [facility] Social History Tobacco Use Types Packs/Day Years Used Date Smoking Tobacco: Every Day Cigarettes 1 26.1 Started: 1998 Smokeless Tobacco: Never Alcohol Use Standard Drinks/Week Comments Yes 0 (1 standard drink = 0.6 oz pur e alcohol) Socially [facility] Utilities Answer Date Recorded In the past [...] any time in the past 12 m [facility], were you homeless or living in [...] the past 12 months has th e [employer], gas, oil, or water [employer] threatened to shut off services in your [...] - Temperature - - Respiratory Rate 16 08/28/2024 0622 EST Oxygen Saturation - - Inhaled Oxygen Concentration - - Weight 81.6 kg (179 lb 14.3 oz) 08/28/2024 0620 EST Height - - Body Mass [...] Flowsheet Note - Marcela Cox RN - 08/28/2024 1347 EST 08/28/24 1047 Post-Hemodialysis Assessment Total Blood Processed (L) 89.3 Liters On Line Clearance: spKt/V 1.53 spKt/V Dialyzer Clearance Lightly streaked Treatment UFR (ml:kg:hr) 13.68 ml:kg:hr Critline refill Not done Fluid Removed (L) 4.5 L Post-Dialysis Scale Weight 93.3 kg (205 lb 11 oz) Wheelchair Weight 16.1 kg (35 lb 7.9 oz) Prosthesis Weight 0 kg (0 lb) Post-Treatment Weight (kg) 77.2 Treatment Weight Change (kg) 4.4 kg Day Target Weight (kg) 77.6 Post Sitting/Lying BP 171/83 Post Sitting/Lying pulse 62 Temp 36.2 ??C (97.2 ??F) Temp src Temporal Minutes Short -250 [...] EST Treatment [facility] [address] [place], [place] [id number] Carlota Jin MD 1 [facility], [facility] [address] [place] [phone] 12/08/2024 6:45 EST Treatment [facility] [address] [place], [place] [id number] Carlota Jin MD 1 [facility], [facility] [address] [place] [phone] 12/11/2024 6:45 EST [facility] [address] [place], [place] [id number] Carlota Jin MD 1 [facility], [address] [phone] 12/13/2024 6:45 EST Treatment [facility] [address] [place], [place] [id number] Carlota Jin MD 1 [facility], [facility] [address] [place] [phone] 12/15/2024 6:45 EST [facility] [address] [place], [place] [id number] Carlota Jin MD 1 [facility], [facility] [address] [place] [phone] 12/18/2024 6:45 EST Treatment [facility] [place] [address] [place], [place] [address] Carlota Jin MD 1 [facility], [facility] [address] [place] [phone] 12/20/2024 6:45 EST Treatment [facility] [place] [address] [place], [place] [id number] Carlota Jin MD 1 [facility], [facility] [address] [place] [phone] 12/22/2024 6:45 EST Treatment [facility] [place] [address] [place], [place] [id number] Carlota Jin MD 1 [facility], [facility] [address] [place] [phone] 12/25/2024 6:45 EST Treatment [facility] [place] [address] [place], [place] [id number] Carlota Jin MD 1 [facility], [facility] [address] [place] [phone] 12/27/2024 6:45 EST Treatment [facility] [address] [place], [place] [id number] Carlota Jin MD 1 [facility], [facility] [address] [place] [phone] 12/29/2024 6:45 EST Treatment [facility] [place] [address] [place], [place] [id number] Carlota Jin MD 1 [facility], [facility] [address] [place] [phone] 01/01/2025 6:45 EDT Treatment [facility] [place] [address] [place], [place] [id number] Carlota Jin MD 1 [facility], [facility] [address] [place] [phone] 01/03/2025 6:45 EDT Treatment [facility] [place] [address] [place], [place] [id number] Carlota Jin MD 1 [facility], [facility] [address] [place] [phone] 01/05/2025 6:45 EDT Treatment [facility] [place] [address] [place], [place] [id number] Carlota Jin MD 1 [facility], [facility] [address] [place] [phone] 01/08/2025 6:45 EDT Treatment [facility] [place] [address] [place] [address] Carlota Jin MD 1 [facility], [facility] [address] [place] [phone] 01/10/2025 6:45 EDT Treatment [facility] [address] [place], [place] [id number] Carlota Jin MD 1 [facility], [facility] [address] [place] [phone] 01/12/2025 6:45 EDT Treatment [facility] [place] [address] [place], [place] [id number] Carlota Jin MD 1 [facility], [facility] [address] [place] [phone] 01/15/2025 6:45 EDT Treatment [facility] [place] [address] [place], [place] [id number] Carlota Jin MD [address] [place] [address], [address] [phone] 01/17/2025 6:45 EDT Treatment [facility] [place] [address] [place], [place] [id number] Carlota Jin MD [address] [place] [address], [address] [phone] 01/19/2025 6:45 EDT Treatment [facility] [place] [address] [place], [place] [id number] Carlota Jin MD [address] [place] [address], [facility] [address] [place] [phone] 01/22/2025 6:45 EDT Treatment [facility] [place] [address] [place], [place] [id number] Carlota Jin MD 1 [facility], [facility] [address] [place] [phone] 01/24/2025 6:45 EDT Treatment [facility] [place] [address] [place], [place] [id number] Carlota Jin MD 1 [facility], [facility] [address] [place] [phone] 01/26/2025 6:45 EDT Treatment [facility] [place] [address] [place], [place] [id number] Carlota Jin MD 1 [facility], [facility] [address] [place] [phone] 01/29/2025 6:45 EDT Treatment [facility] [place] [address] [place], [place] [id number] Carlota Jin MD 1 [facility], [facility] [address] [place] [phone] 01/31/2025 6:45 EDT Treatment [facility] [place] [address] [place] [address] Carlota Jin MD 1 [facility], [facility] [address] [place] [phone] 02/02/2025 6:45 EDT Treatment [facility] [place] [address] [place] [address] Carlota Jin MD 1 [facility], [facility] [address] [place] [phone] 02/05/2025 6:45 EDT Treatment [facility] [place] [address] [place], [place] [id number] Carlota Jin MD 1 [facility], [facility] [address] [place] [phone] 02/07/2025 6:45 EDT Treatment [facility] [place] [address] [place], [place] [id number] Carlota Jin MD 1 [facility], [facility] [address] [place] [phone] 02/09/2025 6:45 EDT Treatment [facility] [place] [address] [place], [place] [id number] Carlota Jin MD 1 [facility], [facility] [address] [place] [phone] 02/12/2025 6:45 EDT Treatment [facility] [place] [address] [place] [address] Carlota Jin MD [address] [place] [address], [address] [phone] 02/14/2025 6:45 EDT Treatment [facility] [place] [address] [place], [place] [id number] Carlota Jin MD 1 [facility], [facility] [address] [place] [phone] 02/16/2025 6:45 EDT Treatment [facility] [place] [address] [place], [place] [id number] Carlota Jin MD 1 [facility], [facility] [address] [place] [phone] 02/19/2025 6:45 EDT Treatment [facility] [place] [address] [place], [place] [id number] Carlota Jin MD 1 [facility] Level [address] [place] [phone] 02/21/2025 6:45 EDT Treatment [facility] [place] [address] [place], [place] [id number] Carlota Jin MD 1 [facility] [address] [place] [phone] documented as of this encounter Procedures Procedure Name Priority Date/Time Associated Diagnosis Comments POSTDIALYSIS BUN WITH URR CALCULATION Routine 08/28/2024 11:23 EST ESRD (end stage renal disease) ([facility]) TRANSFERRIN SATURATION Routine 08/28/2024 6:32 EST ESRD (end stage renal disease) ([facility]) DIALYSIS ROUTINE - DIALYSIS ONLY (BUN, K, NA, CL, CO2, SANJEEV, ALB, MG, PHOS, ALKP, AST) Routine 08/28/2024 6:32 EST ESRD (end stage renal disease) ([facility]) PROFILE IRON STUDIES (INCLUDES IRON, IBC, AND FERRITIN) Routine 08/28/2024 6:32 EST ESRD (end stage renal disease) ([facility]) FERRITIN Routine 08/28/2024 6:32 EST ESRD (end stage renal disease) ([facility]) HEMODIALYSIS Routine 08/28/2024 6:22 EST ESRD (end stage renal disease) ([facility]) documented in this encounter Results * (ABNORMAL) POSTDIALYSIS BUN WITH URR CALCULATION (08/28/2024 11:23 EST) BUN, Postdialysis 21 10 - 26 mg/dL 08/28/2024 22:34 EST [facility] Urea Reduction Rate 72.0 Not Established % 08/28/2024 22:34 EST [facility] Comment: NOTE: Reference range not established for Urea Reduction Rate. BUN 75(H) 10 - 26 mg/dL 08/28/2024 22:34 EST [facility] Blood VENOUS BLOOD / Unknown Venipuncture / Unknown 08/28/2024 11:23 EST 08/28/2024 11:23 EST us Carlota Jin MD CHEMISTRY & BLOOD GAS ORD ERABLES Final Result Performing Organization Address City/[facility]/ZIP Co de Phone Number [facility] [address] [place] [address] * (ABNORMAL) FERRITIN (08/28/2024 6:32 EST) Ferritin 366(H) 22 - 322 ng/mL 08/28/2024 23:21 EST [facility] Blood VENOUS BLOOD / Unknown Venipuncture / Unknown 08/28/2024 6:32 EST 08/28/2024 6:32 EST us Carlota Jin MD CHEMISTRY & BLOOD GAS ORD ERABLES Final Result Performing Organization Address City/[facility] Co de Phone Number [facility] [address] [place] [address] * (ABNORMAL) TRANSFERRIN SATURATION (08/28/2024 6:32 EST) Iron 33(L) 49 - 181 ??g/dL 08/28/2024 22:43 EST [facility] Iron Binding Capacity 230(L) 240 - 450 ??g/dL 08/28/2024 22:43 EST [facility] Transferrin Saturation 14(L) 15 - 45 % 08/28/2024 22:43 EST [facility] Blood VENOUS BLOOD / Unknown Venipuncture / Unknown 08/28/2024 6:32 EST 08/28/2024 6:32 EST us Carlota Jin MD CHEMISTRY & BLOOD GAS ORD ERABLES Final Result [facility] [address] [place], [place] [address] * (ABNORMAL) DIALYSIS ROUTINE - DIALYSIS ONLY (BUN, K, NA, CL, CO2, SANJEEV, ALB, MG, PHOS, ALKP, AST) (08/28/2024 6:32 EST) Sodium 137 136 - 145 mmol/L 08/28/2024 22:34 [facility] Potassium 5.8(H) 3.5 - 5.0 mmol/L 08/28/2024 22:34 [facility] Chloride 104 96 - 110 mmol/L 08/28/2024 22:34 [facility] CO2 Total 22 22 - 32 mmol/L 08/28/2024 22:34 [facility] Calcium 8.0(L) 8.5 - 10.5 mg/dL 08/28/2024 22:34 [facility] Albumin 3.1(L) 3.4 - 4.9 g/dL 08/28/2024 22:34 [facility] Phosphorus 9.9(H) 2.5 - 4.5 mg/dL 08/28/2024 22:34 [facility] Calcium Phos Product 79.2 See Note mg/dL 08/28/2024 22:34 [facility] Comment: NOTE: Reference range not established BUN, Predialysis 75(H) 10 - 26 mg/dL 08/28/2024 22:34 [facility] AST 22 15 - 46 U/L 08/28/2024 22:34 [facility] Alkaline Phosphatase 91 38 - 126 U/L 08/28/2024 22:34 [facility] Magnesium 2.3 1.7 - 2.8 mg/dL 08/28/2024 22:34 [facility] Anion Gap 11 5 - 14 mmol/L 08/28/2024 22:34 [facility] Calculated Calcium 8.7(L) 8.9 - 10.5 mg/dL 08/28/2024 22:34 EST [facility] Blood VENOUS BLOOD / Unknown Venipuncture / Unknown 08/28/2024 6:32 EST 08/28/2024 6:32 EST us Carlota Jin MD CHEMISTRY & BLOOD GAS ORD ERABLES Final Result [facility] [address] [place] [address] documented in this encounter Visit Diagnoses Diagnosis [facility]D (end stage renal disease) ([facility])- Primary End stage renal disease Hypoalbuminemia Other disorders of plasma protein metabolism Secondary hyperparathyroidism ([facility]) Secondary hyperparathyroidism (of renal origin) documented in this encounter Administered Medications Inactive Administered Medications - up to 3 most recent administrations Medication Order MAR Action Action Date Dose Rate Site calcium carbonate (TUMS) tablet 500 mg (200 mg elemental calcium) 2 Tablet 2 Tablet, oral, ONCE IN DIALYSIS, 1 dose, On Wed08/28/24 at 0645, Routine, DialysisIndications:ESRD (end stage renal disease) ([facility]),Secondary hyperparathyroidism ([facility]) Given 08/28/2024 6:32 EST 2 Tablets epoetin ken (EPOGEN) 20,000 unit/2 mL injection 9,000 Units 9,000 Units, intravenous, ONCE IN DIALYSIS, 1 dose, On Wed08/28/24 at 0645, Routine, DialysisIndications:ESRD (end stage renal disease) ([facility]) Given 08/28/2024 6:45 EST 9,000 Units heparin injection 3,000 Units 3,000 Units, intravenous, ONCE IN DIALYSIS, 1 dose, On Wed08/28/24 at 0645, Routine, Dialysis, Now x1 bolus 1500 units to be given at the beginning of dialysis 500 units/hour to be given over the course of dialysis (3000 units total). Stop 1 hour prior to end of treatment. To be administered per Policy [id number].Indications:ESRD (end stage renal disease) ([facility]) Given 08/28/2024 6:45 EST 3,000 Units LiquaCel liquid protein liquid 30 mL 30 mL, oral, ONCE IN DIALYSIS, 1 dose, On Wed08/28/24 at 0645, Patient's flavor preference: either, Routine, DialysisIndications:ESRD (end stage renal disease) ([facility]),Hypoalbuminemia Given 08/28/2024 6:32 EST 30 mL documented in this encounter Orders Dialysis Count Last Ordered Date First Orde red Date HEMODIALYSIS 1 08/28/2024 documented in this encounter Care Teams Parts Department Manager Relationship Specialty Start Date End Date Ken Greer MD [address] [place] [address] PCP - General 07/07/23 Kiel Powers Plasma Table Operator Nephrology 05/31/24 documented as of this encounter
--- OUTSIDE RECORDS SUMMARY | 2024-12-05 11:58 | XMS_ITS | Encounter Summary ---
Author Organization [facility] Address [address] [place] [address] Care Team Providers Care Cleaner Touch Up Worker Name Role Phone Ken Greer MD Primary Care Provider [phone] Kiel Powers Unavailable Unavailable Reason for Visit * Episode Based Medications (Routine) - New Request Specialty Diagnoses / Procedures Referred By Nader gardiner Referred To Contact Diagnoses ESRD (end stage renal disease) ([facility]) Carlota Jin MD [address] [place] [address], [facility] [address] [place] [address] Phone: tel: fax: [facility] [address] [place] [address] Phone: tel: fax: Referral ID Status Reason Start Date Expiration Date V isits Requested Visits Authorized [id number] New Request 03/17/2024 1 1 Encounter Details Date Type Department Care Team (Latest Contact Info) Description 08/07/2024 6:45 EDT Treatment [facility] [address] [place], [place] [phone] Carlota Jin MD [address] [place] [address], [facility] [address] [place] [address] ESRD (end stage renal disease) ([facility]) (Primary Dx); Hypoalbuminemia; Secondary hyperparathyroidism ([facility]) Social History Tobacco Use [...] any time in the past 12 m [facility], were you homeless or living in [...] In the past 12 months has th [employer], [employer], oil, or water [employer] threatened to shut off services in your [...] - Temperature - - Respiratory Rate 16 08/07/2024 0623 EDT Oxygen Saturation - - Inhaled Oxygen Concentration - - Weight - - Height - - Body Mass Index - - documented in this encounter Functional Status * [...] Refills Last Filled Start Date End Date torsemide (DEMADEX) 100 mg tablet Take 1 Tablet by mouth daily. 30 Tablet 11 08/07/2024 sodium polystyrene (KAYEXALATE) powder Take 15 g by mouth daily. 453.6 g 11 08/07/2024 11/06/2024 documented in this encounter Miscellaneous Notes * Flowsheet Note - Marcela Cox RN - 08/07/2024 1236 EDT 08/07/24 1049 Post-Hemodialysis Assessment Total Blood Processed (L) 84.13 Liters On Line Clearance: spKt/V 1.5 spKt/V Dialyzer Clearance Lightly streaked Treatment UFR (ml:kg:hr) 13.53 ml:kg:hr Final Critline Profile (%/hr) 0.12 Final Profile Profile A Critline refill Not done Fluid Removed (L) 4.5 L Post-Dialysis Scale Weight 95.9 kg (211 lb 6.7 oz) Wheelchair Weight 19 kg (41 lb 14.2 oz) Prosthesis Weight 0 kg (0 lb) Post-Treatment Weight (kg) 76.9 Treatment Weight Change (kg) 4.3 kg Day Target Weight (kg) 77.2 Post Sitting/Lying BP 173/87 Post Sitting/Lying pulse 78 Temp 36.7 ??C (98.1 ??F) Temp src Temporal Minutes Short -248 Post access assessment Bruit present: Yes Thrill [...] Dialysis Comprehensive - Carlota Jin MD - 08/07/2024 0645 EDT Images from the original note were not included. 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 associated with type 2diabetes mellitus ([facility]) ESRD (end stage renal disease) ([facility]) Primary hypertension [I10] Hearing loss Herniation of lumbar intervertebral disc with radiculopathy Hyperlipidemia Proteinuria Right sided numbness Secondary hyperparathyroidism ([facility]) TIA (transient ischemic attack) Type II or unspecified type diabetes mellitus with neurological manifestations, uncontrolled(250.62) Encounter for immunization Hypoalbuminemia Anemia of chronic renal failure Abnormal albumin Cellulitis and abscess of foot, except toes Encounter for therapeutic drug monitoring Diabetic foot infection ([facility]) [E11.628, L08.9] COVID Type 2 diabetes mellitus with chronic kidney disease on chronic dialysis, with long-term current use of insulin ([facility]) [E11.22, N18.6, Z99.2, Z79.4] Anemia of chronic renal failure, stage 5 ([facility]) [N18.5, D63.1] ESRD on hemodialysis ([facility]) Atrial fibrillation and flutter ([facility]) Anemia in chronic kidney disease Anxiety and depression GERD (gastroesophageal reflux disease) Nicotine dependence, cigarettes, uncomplicated Non-healing open wound of heel Olecranon bursitis, right elbow Osteoarthrosis Peripheral neuropathy Retinopathy Sciatica Smoker Type 2 diabetes mellitus with diabetic neuropathy, unspecified ([facility]) Secondary hyperparathyroidism of renal origin ([facility]) Diabetes mellitus ([facility]) Treatment Modality: Patient received information regarding treatment [...] Listing On-Hold? No No No Transplant Center [facility] Comments Patient does not meet transplant criteria due to daily smoking cigarettes pt referred to transplant @ [facility] declined due to severe PVD with s/p [...] 75.5 Treatments Per Week: 3 Dialyzer: OPTIFLUX 250NR Dialysate concentrate: Potassium 2 mEq/L Calcium 2.5 [...] with Nursing: Yes Average Interdialytic Fluid Gains: 08/02/2024 6:29 08/02/2024 10:45 08/04/2024 6:25 08/04/2024 6:34 08/04/2024 10:52 08/07/2024 6:23 08/07/2024 6:25 InterDialytic +/- Gain/Loss 4.3 3.9 3.9 4.9 4.9 Wt (pre) 80 80 80 81.2 81.2 Wt (post) 76.1 76.3 Treatment UFR (ml:kg:hr) 12.6 ml:kg:hr 11.88 ml:kg:hr BP (post) 197/90 140/89 140/89 174/81 174/81 Pulse(post) 75 73 73 78 78 Resp (/min) 16 16 16 Volume and blood pressure have been addressed with the following changes: None Consistently able to achieve estimated dry weight? No: consistently over Blood pressure is in range for patient? No. Hypertension: due to fluid Any adverse intradialytic symptoms? No Plan: Managed per protocol Physical Exam Constitutional somnolent Respiratory: Unlabored breathing, CTAB anterior marti Cardiac: distant Abdomen: soft Extremities: B/l LE amputations; no pitting edema Hospitalization Hospitalization in Previous 1 Month: No Emergency Room Visit in Previous 1 Month: Yes: 07/26 for headache; no specific etiology found; no treatment Access Management Current LDAs: Hemodialysis Arteriovenous Access 02/13/19 (Active) AV Fistula Present 08/07/24653 Site Assessment Clean;Dry;Intact;Bruit heard;Thrill felt 08/07/24653 Current State Active 08/07/24653 Status Accessed 08/07/24 06 Is Maturing N 08/07/24653 Local Anesthetic None 08/07/24653 Site Prep Chlorhexidine 08/07/24653 Venous Needle Size 15 G 08/07/24653 Arterial/Generic Needle Size 15 G 08/07/24653 Accessed by: Rosa 08/07/24653 Access Attempts 2 08/07/24653 Dressing Status/Care Clean/Dry/Intact 07/24/24 06 Dressing Intervention Other (Comment) 05/30/242054 Patient [...] hours as needed. (Patient nottaking: Reported on 07/05/2024), Disp: , Rfl: insulin aspart U-100 (NOVOLOG [...] daily before meals. 0-8 units subcutaneous q4hrs (Patient not taking: Reported on 07/05/2024), Disp: , Rfl: insulin pen needles 32G x 5/32, Brand: [employer] Fine Anny. ISS TID and levemir once daily, Disp: 100 Each, Rfl: 11 pantoprazole (PROTONIX) 40 mg tablet, Take 1 Tablet by mouth daily., Disp: , Rfl: polyethylene glycol 3350 (MIRALAX) 17 gram packet, Take 17 g by mouth 2 times daily. (Patient not taking: Reported on 07/20/2024), Disp: , Rfl: pregabalin (LYRICA) 100 mg capsule, Take 1 Capsule by mouth 2 times daily. 1 tab in the morning, 2 tabs at night, Disp: , Rfl: senna-docusate (SENNA PLUS) 8.6-50 mg per tablet, Take 1 Tablet by mouth daily. (Patient not taking: Reported on 07/20/2024), Disp: , Rfl: sevelamer carbonate (RENVELA) 800 mg tablet, Take 3 Tablets by mouth 3 times daily with meals., Disp: 810 Tablet, Rfl: 3 sodium polystyrene (KAYEXALATE) powder, Take 15 g by mouth SEE ADMIN INSTRUCTIONS. Take 15 grams inwater once daily on non dialysis days, Disp: 453.6 g, Rfl: 2 tiZANidine (ZANAFLEX) 4 mg tablet, Take 1 Tablet by mouth every 8 hours as needed., Disp: , Rfl: Current Facility-Administered Medications: acetaminophen (TYLENOL) tablet 650 mg, 650 mg, oral, Q4H PRN, Carlota Jin MD Adjustment made to home medication: Increase Kayexalate to daily Dialysis Medication Review Dialysis Plan Order Summary All Current Orders Interval Duration Due Hemodialysis Therapy Plan Dialysis Treatment In-Center Hemodialysis 3 times a week Week of 08/06/2024 Routine, ONE TIME Starting when released Prescribed Weight (Kg): 75.5 Treatments Per Week: 3 Dialyzer: OPTIFLUX 250NR Dialysate concentrate: Potassium 2 mEq/L Calcium 2.5 mEq/L Sodium NA+: Other Please specify: 136 Dialysate: Bicarb (mEq/L): 33 Dialysate Temperature (Centigrade): 36.5 BFR mL/min: 400 mL/min Dialysate Flow Rate (mL/min): 800 mL/min Duration of Treatment (hrs): 4 Hours Primary Access Site: AV Fistula Needle gauge: 15g 1 Dialysis - UF Profile: None Dialysis Last released: 08/07/2024 Oxygen Therapy (Age 2 yrs. to Adult) [...] released Until Discontinued, Pain, Dialysis Last released: Wed08/07/2024 diphenhydrAMINE (BENADRYL) capsule 25 mg PRN PRN [...] endof treatment. To be administered per Policy [id number]. Last released: Wed08/07/2024 sodium chloride 0.9 % BOLUS 100 mL PRN PRN 100 mL, intravenous, PRN Starting when released Until Discontinued, Other, hypotension or cramping,Dialysis Last released: Never Dialysis Weekly Labs Complete Blood Count Weekly: Wed08/09/2024 Routine, ONE TIME Starting when released, Blood, Venous, Blood Dialysis Last released: Wed08/02/2024 Dialysis Monthly Labs Dialysis Iron (Includes Iron, IBC, and Ferritin) - Nephrology Use Only On the Wed of every 1 month Wed08/28/2024 Routine, ONE TIME Starting when released, Blood, Venous, Blood Dialysis Last released: Wed07/31/2024 Dialysis Routine- Dialysis Use Only On the Wed of every 1 month Wed08/28/2024 Routine, ONE TIME Starting when released, Blood, Blood, Venous Dialysis Last released: Wed07/31/2024 Postdialysis BUN with URR Calculation On the Wed of every 1 month Wed08/28/2024 Routine, ONE TIME Starting when released, Blood, Blood, Venous Dialysis Last released: Wed07/31/2024 Dialysis Quarterly Labs PTH Intact On the [...] Last released: Wed10/27/2023 Vitamin B12 On the Mon of every 12 months [...] only block results from tests performed at [facility] and does not apply for Miscellaneous Test Order): Immediate Dialysis Last released: Never HEMODIALYSIS [facility] Medications epoetin ken (EPOGEN) 20,000 unit/2 mL injection 9,000 Units 3 times a week Week of 08/06/2024 9,000 Units, intravenous, ONCE IN DIALYSIS Starting when released, Dialysis Last released: Wed08/07/2024 HEMODIALYSIS NUTRITIONAL SUPPLEMENTS Nutritional Supplements LiquaCel liquid protein liquid 30 mL Every visit Every visit 30 mL, oral, ONCE IN DIALYSIS Starting when released Patient's flavor preference: either Dialysis Last released: Wed08/07/2024 HEMODIALYSIS CKD MBD MEDS Medications calcium carbonate (TUMS) tablet 500 mg (200 mg elemental calcium) 2 Tablet Every visit Every visit 2 Tablet, oral, ONCE IN DIALYSIS Starting when released, Dialysis Last released: Wed08/07/2024 Adjustment made to dialysis medication: No Laboratory Results Dialysis Adequacy: spKt/V: 1.54 (Calculated from:; BUN Pre-Dialysis: 94 mg/dL at 07/31/2024 11:10; BUN Post-Dialysis: 26 mg/dL at 07/31/2024 11:10; Pre-Treatment Weight (kg): 78.9 at 07/31/2024 6:30; Post-Treatment Weight(kg): 75.7 at 07/31/2024 10:49; Duration of Treatment (minutes): 246 minutes at 07/31/2024 10:49) Plan: Continue current dialysis prescription Anemia Management: Lab Results Component Value Date WBC 8.43 08/02/2024 HGB 10.1 (L) 08/02/2024 HGB 11.0 (L) 07/26/2024 HGB 11.7 (L) 07/19/2024 PLT 190 08/02/2024 FOLATE >24.0 10/27/2023 [id number] 607 10/27/2023 FERRITIN 552 (H) 07/31/2024 Current GEORGE/Dose: HEMODIALYSIS ANEMIA MEDS epoetin ken (EPOGEN) 20,000 unit/2 mL injection 9,000 Units 9,000 Units, intravenous, 3 times a week, ONCE [...] Component Value Date LABALBU 3.1 (L) 07/31/2024 ALKPHOS 97 07/31/2024 PHOS 10.0 (H) 07/31/2024 CALCIUM 8.1 (L) 07/31/2024 CALCCA 8.8 (L) 07/31/2024 PTH 712 (H) 07/31/2024 Vitamin D: cholecalciferol (Vitamin D3) - 25 mcg (1,000 unit) sevelamer carbonate - 800 mg This patient does not have an active medication from one of the medication groupers. Plan: Managed per protocol Potassium Management: Lab Results Component Value Date K 6.6 (H) 07/31/2024 Prescribed Potassium Concentrate: HEMODIALYSIS Ordered at: 08/07/24 06 Dialysate concentrate: Potassium 2 mEq/L Calcium 2.5 mEq/L 08/07/2024 6:23 Last Dialysis Prescription released on: Selected bath: Potassium 2 mEq/L Calcium 2.5 mEq/L sevelamer carbonate - 800 mg sodium polystyrene Plan: Managed per protocol Nutrition: Lab Results Component Value Date LABALBU 3.1 (L) 07/31/2024 TP 6.4 12/19/2023 NA 137 07/31/2024 SERGLU 265 (H) 05/31/2024 HGBA1C 11.6 (H) 11/07/2023 Protein Supplements: This patient does not have an active medication from one of the medication groupers. Plan: Managed per protocol Comments: Will increase Kayexalate to daily and trial torsemide 100 mg daily. Carlota Jin MD documented in this encounter Plan of Treatment Upcoming Encounters Date Type Department Care Team (Late st Contact Info) Description 12/06/2024 6:45 EST Treatment [facility] [address] [place], [place] [phone] Carlota Jin MD [address] [address] 12/08/2024 6:45 EST Treatment [facility] [address] [place], [place] [id number] Carlota Jin MD [address] [phone] 12/11/2024 6:45 EST Treatment [facility] [address] [place], [place] [phone] Carlota Jin MD [address] [phone] 12/13/2024 6:45 EST [facility] [address] [place], [place] [phone] Carlota Jin MD [address] [phone] 12/15/2024 6:45 EST Treatment [facility] [address] [place], [place] [id number] Cralota Jin MD 1 [facility] [address] [place] [phone] 12/18/2024 6:45 EST Treatment [facility] [address] [place], [place] [phone] Carlota Jin MD 1 [facility], [facility] [address] [place] [phone] 12/20/2024 6:45 EST Treatment [facility] [address] [place], [place] [address] [phone] Carlota Jin MD 1 [facility], [facility] [address] [place] [phone] 12/22/2024 6:45 EST Treatment [facility] [address] [place], [place] [phone] Carlota Jin MD 1 [facility] [address] [place] [phone] 12/25/2024 6:45 EST [facility] [address] [place], [place] [phone] Carlota Jin MD 1 [facility] [address] [place] [phone] 12/27/2024 6:45 EST Treatment [facility] [address] [place], [place] [address] Carlota Jin MD 1 [facility], [address] [phone] 12/29/2024 6:45 EST Treatment [facility] [address] [place] [address] Carlota Jin MD 1 [facility], [address] [phone] 01/01/2025 6:45 EDT Treatment [facility] [address] [place], [place] [phone] Carlota Jin MD 1 [facility], [address] [phone] 01/03/2025 6:45 EDT Treatment [facility] [address] [place], [place] [phone] Carlota Jin MD [address] [phone] 01/05/2025 6:45 EDT Treatment [facility] [address] [place], [place] [phone] Carlota Jin MD [address] [phone] 01/08/2025 6:45 EDT Treatment [facility] [address] [place], [place] [id number] Carlota Jin MD 1 [facility], [facility] [address] [place] [phone] 01/10/2025 6:45 EDT Treatment [facility] [address] [place], [place] [phone] Carlota Jin MD 1 [facility], [facility] [address] [place] [phone] 01/12/2025 6:45 EDT Treatment [facility] [address] [place], [place] [phone] Carlota Jin MD 1 [facility], [facility] [address] [place] [phone] 01/15/2025 6:45 EDT Treatment [facility] [address] [place], [place] [id number] Carlota Jin MD 1 [facility], [address] [phone] 01/17/2025 6:45 EDT Treatment [facility] [address] [place], [place] [phone] Carlota Jin MD 1 [facility], [facility] [address] [place] [phone] 01/19/2025 6:45 EDT Treatment [facility] [address] [place], [place] [id number] Carlota Jin MD 1 [facility], [facility] [address] [place] [phone] 01/22/2025 6:45 EDT Treatment [facility] [address] [place], [place] [phone] Carlota Jin MD 1 [facility], [facility] 2 [place] [phone] 01/24/2025 6:45 EDT Treatment [facility] [address] [place], [place] [phone] Carlota Jin MD 1 [facility], [address] [phone] 01/26/2025 6:45 EDT Treatment [facility] [address] [place], [place] [phone] Carlota Jin MD 1 [facility], [address] [phone] 01/29/2025 6:45 EDT Treatment [facility] [address] [place], [place] [id number] Carlota Jin MD 1 [facility], [address] [phone] 01/31/2025 6:45 EDT Treatment [facility] [place] [address] [place], [place] [phone] Carlota Jin MD 1 [facility], [address] [phone] 02/02/2025 6:45 EDT Treatment [facility] [address] [place], [place] [phone] Carlota Jin MD 1 [facility] [address] [place] [phone] 02/05/2025 6:45 EDT Treatment [facility] [address] [place], [place] [address] Carlota Jin MD 1 [facility], [facility] 2 [place] [phone] 02/07/2025 6:45 EDT Treatment [facility] [place] [facility] [address] [place], [place] [phone] Carlota Jin MD 1 [facility], [facility] 2 [place] [phone] 02/09/2025 6:45 EDT Treatment [facility] [place] [facility] [address] [place] [address] Carlota Jin MD 1 [facility], [facility] [address] [place] [phone] 02/12/2025 6:45 EDT [facility] [address] [place] [address] Carlota Jin MD [facility], [facility] [address] [place] [phone] 02/14/2025 6:45 EDT Treatment [facility] [address] [place], [place] [phone] Carlota Jin MD 1 [facility], [facility] [address] [place] [phone] 02/16/2025 6:45 EDT Treatment [facility] [address] [place], [place] [phone] Carlota Jin MD 1 [facility], [address] [phone] 02/19/2025 6:45 EDT Treatment [facility] [address] [place], [place] [phone] Carlota Jin MD [address] [place] [phone] 02/21/2025 6:45 EDT [facility] [address] [place], [place] [phone] Carlota Jin MD [address] [place] [address], [address] [phone] documented as of this encounter Procedures Procedure Name Priority Date/Time Associated Diagnosis Comments HEMODIALYSIS Routine 08/07/2024 6:23 EDT ESRD (end stage renal disease) ([facility]) documented in this encounter Visit Diagnoses Diagnosis ESRD (end stage renal disease) ([facility])- Primary End stage renal disease Hypoalbuminemia Other disorders of plasma protein metabolism Secondary hyperparathyroidism ([facility]) Secondary hyperparathyroidism (of renal origin) documented in this encounter Administered Medications Inactive Administered Medications - up to 3 most recent administrations Medication Order MAR Action Action Date Dose Rate Site calcium carbonate (TUMS) tablet 500 mg (200 mg elemental calcium) 2 Tablet 2 Tablet, oral, ONCE IN DIALYSIS, 1 dose, On Wed08/07/24 at 0645, Routine, DialysisIndications:ESRD (end stage renal disease) ([facility]),Secondary hyperparathyroidism ([facility]) Given 08/07/2024 6:41 EDT 2 Tablets epoetin ken (EPOGEN) 20,000 unit/2 mL injection 9,000 Units 9,000 Units, intravenous, ONCE IN DIALYSIS, 1 dose, On Wed08/07/24 at 0645, Routine, DialysisIndications:ESRD (end stage renal disease) ([facility]) Given 08/07/2024 6:50 EDT 9,000 Units heparin injection 3,000 Units 3,000 Units, intravenous, ONCE IN DIALYSIS, 1 dose, On 08/07/24 at 0645, Routine, Dialysis, Now x1 bolus 1500 units to be given at the beginning of dialysis 500 units/hour to be given over the course of dialysis (3000 units total). Stop 1 hour prior to end of treatment. To be administered per Policy [id number].Indications:ESRD (end stage renal disease) ([facility]) Given 08/07/2024 6:50 EDT 3,000 Units LiquaCel liquid protein liquid 30 mL 30 mL, oral, ONCE IN DIALYSIS, 1 dose, On Wed08/07/24 at 0645, Patient's flavor preference: either, Routine, DialysisIndications:ESRD (end stage renal disease) ([facility]),Hypoalbuminemia Given 08/07/2024 6:41 EDT 30 mL documented in this encounter Discontinued Medications Medication Sig Discontinue Reason Start Date End Da te sodium polystyrene (KAYEXALATE) powder Take 15 g by mouth SEE ADMIN INSTRUCTIONS. Take 15 grams in water once daily on non dialysis days 07/11/2024 08/07/2024 documented as of this encounter Orders Medications Ordered That Davide ht Not Have Been Administered Count Last Ordered Date First Ordered Date acetaminophen (TYLENOL) tablet 650 mg 1 Dialysis Count Last Ordered Date First Orde red Date HEMODIALYSIS 1 08/07/2024 documented in this encounter Care Teams Cleaner Touch Up Worker Relationship Specialty Start Date End Date Ken Greer MD [address] [place] [address] PCP - General 07/07/23 Kiel Powers Coal Tower Operator Nephrology 05/31/24 documented as of this encounter
--- OUTSIDE RECORDS SUMMARY | 2024-12-05 11:58 | XMS_ITS | Encounter Summary ---
Author Organization [facility] Address [address] [place] [address] Care Team Providers Care Office Clerk Routine Name Role Phone Ken Greer MD Primary Care Provider [phone] Kiel Powers Unavailable Unavailable Encounter Details Date Type Department Care Team (Late st Contact Info) Description 08/07/2024 Documentation Visit [facility] [address] [place], [place] [id number] Marcela Cox, RN Social History Tobacco Use [...] time in the past 12 m [facility], were you homeless or living [...] your living situation today? I have a [facility] place to live 05/30/2024 Think [...] Progress Notes * Marcela Cox RN - 08/07/2024 0944 EDT 08/07/24 9:45 [facility] Medication review of home medications (prescriptions, dqud-mit-pxdgkcj, herbals, vitamin/mineral/dietary (nutritional) supplements, medical marijuana, and [...] (KAYEXALATE) powder tiZANidine (ZANAFLEX) 4 mg tablet No current facility-administered medications for this visit. Facility-Administered Medications Ordered in Other Visits Medication Route Frequency acetaminophen (TYLENOL) tablet 650 mg oral Q4H PRN Marcela Cox RN documented in this encounter Plan of Treatment Upcoming Encounters Date Type Department Care Team (Late st Contact Info) Description 12/06/2024 6:45 EST Treatment [facility] [address] [place], [place] [phone] Carlota Jin MD 1 [facility], [facility] 2 [place] [address] 12/08/2024 6:45 EST Treatment [facility] [address] [place], [place] [id number] Carlota Jin MD 1 [facility], [facility] 2 [place] [address] 12/11/2024 6:45 EST Treatment [facility] [place] [address] [place], [place] [id number] Carlota Jin MD 1 [facility], [facility] 2 [place] [phone] 12/13/2024 6:45 EST Treatment [facility] [place] [address] [place], [place] [id number] Carlota Jin MD 1 [facility], [facility] 2 [place] [phone] 12/15/2024 6:45 EST Treatment [facility] [place] [address] [place], [place] [id number] Carlota Jin MD 1 [facility], [facility] 2 [place] [phone] 12/18/2024 6:45 EST Treatment [facility] [place] [address] [place], [place] [id number] Carlota Jin MD 1 [facility], [facility] 2 [place] [phone] 12/20/2024 6:45 EST Treatment [facility] [place] [address] [place], [place] [id number] Carlota Jin MD 1 [facility], [facility] 2 [place] [phone] 12/22/2024 6:45 EST Treatment [facility] [place] [address] [place], [place] [id number] Carlota Jin MD 1 [facility], [facility] 2 [place] [phone] 12/25/2024 6:45 EST Treatment [facility] [place] [address] [place], [place] [id number] Carlota Jin MD 1 [facility], [facility] 2 [place] [phone] 12/27/2024 6:45 EST Treatment [facility] [place] [address] [place], [place] [id number] Carlota Jin MD 1 [facility], [facility] 2 [place] [phone] 12/29/2024 6:45 EST Treatment [facility] [place] [address] [place], [place] [id number] Carlota Jin MD 1 [facility], [facility] 2 [place] [phone] 01/01/2025 6:45 EDT Treatment [facility] [place] [address] [place], [place] [id number] Carlota Jin MD 1 [facility], [facility] 2 [place] [phone] 01/03/2025 6:45 EDT Treatment [facility] [place] [address] [place], [place] [id number] Carlota Jin MD 1 [facility], [facility] 2 [place] [phone] 01/05/2025 6:45 EDT Treatment [facility] [place] [address] [place], [place] [id number] Carlota Jin MD 1 [facility], [facility] 2 [place] [phone] 01/08/2025 6:45 EDT Treatment [facility] [place] [address] [place], [place] [id number] Carlota Jin MD 1 [facility], [facility] 2 [place] [phone] 01/10/2025 6:45 EDT Treatment [facility] [place] [address] [place], [place] [id number] Carlota Jin MD 1 [facility], [address] [phone] 01/12/2025 6:45 EDT Treatment [facility] [place] [address] [place], [place] [id number] Carlota Jin MD 1 [facility], [facility] 2 [place] [phone] 01/15/2025 6:45 EDT Treatment [facility] [place] [address] [place], [place] [id number] Carlota Jin MD 1 [facility], [facility] 2 [place] [phone] 01/17/2025 6:45 EDT Treatment [facility] [place] [address] [place], [place] [id number] Carlota Jin MD 1 [facility], [facility] 2 [place] [phone] 01/19/2025 6:45 EDT Treatment [facility] [place] [address] [place] [address] Carlota Jin MD 1 [facility], [facility] 2 [place] [phone] 01/22/2025 6:45 EDT Treatment [facility] [place] [address] [place], [place] [id number] Carlota Jin MD 1 [facility], [address] [phone] 01/24/2025 6:45 EDT Treatment [facility] [place] [address] [place], [place] [id number] Carlota Jin MD 1 [facility], [address] [phone] 01/26/2025 6:45 EDT Treatment [facility] [place] [address] [place], [place] [id number] Carlota Jin MD 1 [facility], [address] [phone] 01/29/2025 6:45 EDT Treatment [facility] [place] [address] [place], [place] [id number] Carlota Jin MD 1 [facility], [facility] 2 [place] [phone] 01/31/2025 6:45 EDT Treatment [facility] [place] [address] [place], [place] [id number] Carlota Jin MD 1 [facility], [facility] 2 [place] [phone] 02/02/2025 6:45 EDT Treatment [facility] [place] [address] [place], [place] [id number] Carlota Jin MD 1 [facility], [facility] 2 [place] [phone] 02/05/2025 6:45 EDT Treatment [facility] [place] [address] [place], [place] [address] [phone] Carlota Jin MD 1 [facility], [facility] 2 [place] [phone] 02/07/2025 6:45 EDT Treatment [facility] [place] [address] [place] [address] Carlota Jin MD 1 [facility], [facility] 2 [place] [phone] 02/09/2025 6:45 EDT Treatment [facility] [place] [address] [place], [place] [id number] Carlota Jin MD 1 [facility], [facility] 2 [place] [phone] 02/12/2025 6:45 EDT Treatment [facility] [place] [address] [place], [place] [address] Carlota Jin MD [address] [place] [phone] 02/14/2025 6:45 EDT Treatment [facility] [place] [address] [place], [place] [id number] Carlota Jin MD [address] [place] [phone] 02/16/2025 6:45 EDT Treatment [facility] [place] [address] [place], [place] [id number] Carlota Jin MD [address] [place] [address], [address] [phone] 02/19/2025 6:45 EDT Treatment [facility] [place] [address] [place], [place] [id number] Carlota Jin MD [address] [place] [phone] 02/21/2025 6:45 EDT Treatment [facility] [place] [address] [place], [place] [id number] Carlota Jin MD [address] [place] [phone] documented as of this encounter Visit Diagnoses Not on filedocumented in this encounter Care Teams Office Clerk Routine Relationship Specialty Start Date End Date Ken Greer [place] [address] PCP - General 07/07/23 Kiel Powers Design Assembler Nephrology 05/31/24 documented as of this encounter
--- OUTSIDE RECORDS SUMMARY | 2024-12-05 11:58 | XMS_ITS | Encounter Summary ---
Author Organization [facility] Address [address] [place] [address] Care Team Providers Care Professor Of English Name Role Phone Ken Greer MD Primary Care Provider [phone] Kiel Powers Unavailable Unavailable Reason for Visit * Episode Based Medications (Routine) - New Request Specialty Diagnoses / Procedures Referred By Nader gardiner Referred To Contact Diagnoses ESRD (end stage renal disease) ([facility]) Carlota Jin MD [address] [place] [address] 2 [place] [address] Phone: tel: fax: [facility] [place] [address] [place] [address] Phone: tel: fax: Referral ID Status Reason Start Date Expiration Date V isits Requested Visits Authorized [id number] New Request 03/17/2024 1 1 Encounter Details Date Type Department Care Team (Latest Contact Info) Description 08/11/2024 6:45 EDT Treatment [facility] [address] [place], [place] [phone] Carlota Jin MD [address] [place] [address], [facility] 2 [place] [address] ESRD (end stage renal disease) ([facility]) (Primary Dx); Hypoalbuminemia; Secondary hyperparathyroidism ([facility]) Social History Tobacco Use Types Packs/Day Years Used Date Smoking Tobacco: Every Day Cigarettes 1 26.1 Started: 1998 Smokeless Tobacco: Never Alcohol Use Standard Drinks/Week Comments Yes 0 (1 standard drink = 0.6 oz pur e alcohol) Socially [facility] Utilities Answer Date Recorded [...] any time in the past 12 m [facility], were you homeless or living [...] the past 12 months has th e [employer], gas, oil, or water [employer] threatened to shut off services in your [...] - Temperature - - Respiratory Rate 16 08/11/2024 0622 EDT Oxygen Saturation - - Inhaled Oxygen Concentration - - Weight 78.1 kg (172 lb 2.9 oz) 08/11/2024 0607 E DT Height - - Body Mass Index 24.71 [...] Flowsheet Note - Marcela Cox RN - 08/11/2024 1314 EDT 08/11/24 1039 Post-Hemodialysis Assessment Total Blood Processed (L) 90.71 Liters On Line Clearance: spKt/V 1.66 spKt/V Dialyzer Clearance Lightly streaked Treatment UFR (ml:kg:hr) 8.92 ml:kg:hr Critline refill Not done Fluid Removed (L) 3.1 L Post-Dialysis Scale Weight 94.4 kg (208 lb 1.8 oz) Wheelchair Weight 19 kg (41 lb 14.2 oz) Prosthesis Weight 0 kg (0 lb) Post-Treatment Weight (kg) 75.4 Treatment Weight Change (kg) 2.7 kg Day [employer] Weight (kg) 75.5 Post Sitting/Lying BP 172/74 Post Sitting/Lying pulse 66 Temp 36.7 ??C (98.1 ??F) Temp src Temporal Minutes Short -241 Post access assessment Bruit present: Yes Thrill Present AVF/AFG Hemostasis achieved Yes Note Patient held with blue clamps without issues Orientation Alert [...] Contact Info) Description 12/06/2024 6:45 EST Treatment [facility] [place] [address] [place], [place] [phone] Carlota Jin MD 1 [facility], [facility] 2 [place] [phone] 12/08/2024 6:45 EST Treatment [facility] [address] [place], [place] [id number] Carlota Jin MD [address] [phone] 12/11/2024 6:45 EST Treatment [facility] [place] [address] [place], [place] [id number] Carlota Jin MD 1 [facility], [address] [phone] 12/13/2024 6:45 EST Treatment [facility] [address] [place], [place] [id number] Carlota Jin MD 1 [facility], [address] [phone] 12/15/2024 6:45 EST Treatment [facility] [address] [place], [place] [id number] Carlota Jin MD [address] [phone] 12/18/2024 6:45 EST Treatment [facility] [place] [address] [place], [place] [id number] Carlota Jin MD 1 [facility], [facility] 2 [place] [phone] 12/20/2024 6:45 EST Treatment [facility] [place] [address] [place], [place] [id number] Carlota Jin MD 1 [facility], [facility] 2 [place] [phone] 12/22/2024 6:45 EST Treatment [facility] [place] [address] [place], [place] [id number] Cralota Jin MD 1 [facility], [facility] 2 [place] [phone] 12/25/2024 6:45 EST Treatment [facility] [place] [address] [place], [place] [id number] Carlota Jin MD 1 [facility], [facility] 2 [place] [phone] 12/27/2024 6:45 EST Treatment [facility] [place] [address] [place], [place] [id number] Carlota Jin MD 1 [facility], [facility] 2 [place] [phone] 12/29/2024 6:45 EST Treatment [facility] [place] [address] [place], [place] [id number] Carlota Jin MD 1 [facility], [facility] 2 [place] [phone] 01/01/2025 6:45 EDT Treatment [facility] [place] [address] [place], [place] [address] Carlota Jin MD 1 [facility], [facility] 2 [place] [phone] 01/03/2025 6:45 EDT Treatment [facility] [place] [address] [place], [place] [id number] Carlota Jin MD 1 [facility], [facility] 2 [place] [phone] 01/05/2025 6:45 EDT Treatment [facility] [place] [address] [place] [address] Carlota Jin MD 1 [facility], [facility] 2 [place] [phone] 01/08/2025 6:45 EDT Treatment [facility] [address] [place] [address] Carlota Jin MD 1 [facility], [facility] 2 [place] [phone] 01/10/2025 6:45 EDT Treatment [facility] [place] [address] [place], [place] [id number] Carlota Jin MD 1 [facility], [facility] 2 [place] [phone] 01/12/2025 6:45 EDT Treatment [facility] [place] [address] [place], [place] [id number] Carlota Jin MD 1 [facility], [facility] 2 [place] [phone] 01/15/2025 6:45 EDT Treatment [facility] [place] [address] [place], [place] [id number] Carlota Jin MD 1 [facility], [facility] 2 [place] [phone] 01/17/2025 6:45 EDT Treatment [facility] [place] [address] [place] [address] Carlota Jin MD 1 [facility], [address] [phone] 01/19/2025 6:45 EDT Treatment [facility] [place] [address] [place], [place] [address] Carlota Jin MD 1 [facility], [facility] 2 [place] [phone] 01/22/2025 6:45 EDT Treatment [facility] [place] [address] [place], [place] [id number] Carlota Jin MD 1 [facility], [facility] 2 [place] [phone] 01/24/2025 6:45 EDT Treatment [facility] [place] [address] [place] [address] Carlota Jin MD 1 [facility], [facility] 2 [place] [phone] 01/26/2025 6:45 EDT Treatment [facility] [place] [address] [place], [place] [id number] Carlota Jin MD 1 [facility], [facility] 2 [place] [phone] 01/29/2025 6:45 EDT Treatment [facility] [place] [address] [place] [address] Carlota Jin MD 1 [facility], [address] [phone] 01/31/2025 6:45 EDT Treatment [facility] [place] [address] [place], [place] [id number] Carlota Jin MD 1 [facility], [address] [phone] 02/02/2025 6:45 EDT Treatment [facility] [place] [address] [place] [address] Carlota Jin MD 1 [facility], [facility] 2 [place] [phone] 02/05/2025 6:45 EDT Treatment [facility] [place] [address] [place], [place] [id number] Carlota Jin MD 1 [facility], [facility] 2 [place] [phone] 02/07/2025 6:45 EDT Treatment [facility] [place] [address] [place] [address] Carlota Jin MD 1 [facility], [facility] 2 [place] [phone] 02/09/2025 6:45 EDT Treatment [facility] [place] [address] [place], [place] [id number] Carlota Jin MD [address] [place] [address], [facility] 2 [place] [phone] 02/12/2025 6:45 EDT Treatment [facility] [place] [address] [place] [address] Carlota Jin MD 1 [facility], [facility] 2 [place] [phone] 02/14/2025 6:45 EDT Treatment [facility] [place] [address] [place] [address] Carlota Jin MD [address] [place] [address], [facility] 2 [place] [phone] 02/16/2025 6:45 EDT Treatment [facility] [place] [address] [place], [place] [id number] Carlota Jin MD [address] [place] [address], [facility] 2 [place] [phone] 02/19/2025 6:45 EDT Treatment [facility] [place] [address] [place], [place] [address] Carlota Jin MD 1 [facility], [facility] 2 [place] [phone] 02/21/2025 6:45 EDT Treatment [facility] [address] [place], [place] [id number] Carlota Jin MD 1 [facility], [facility] 2 [place] [phone] documented as of this encounter Procedures Procedure Name Priority Date/Time Associated Diagnosis Comments HEMODIALYSIS Routine 08/11/2024 6:22 EDT ESRD (end stage renal disease) ([facility]) documented in this encounter Visit Diagnoses Diagnosis ESRD (end stage renal disease) ([facility])- Primary End stage renal disease Hypoalbuminemia Other disorders of plasma protein metabolism Secondary hyperparathyroidism ([facility]) Secondary hyperparathyroidism (of renal origin) documented in this encounter Administered Medications Inactive Administered Medications - up to 3 most recent administrations Medication Order MAR Action Action Date Dose Rate Site acetaminophen (TYLENOL) tablet 650 mg 650 mg, oral, EVERY 4 HOURS PRN, Starting on Wed08/11/24 at 0932, Until Wed08/11/24 at 1514, Pain, Routine, DialysisIndications:ESRD (end stage renal disease) ([facility]) Given 08/11/2024 9:32 EDT 650 mg calcium carbonate (TUMS) tablet 500 mg (200 mg elemental calcium) 2 Tablet 2 Tablet, oral, ONCE IN DIALYSIS, 1 dose, On Wed08/11/24 at 0645, Routine, DialysisIndications:ESRD (end stage renal disease) ([facility]),Secondary hyperparathyroidism ([facility]) Given 08/11/2024 6:29 EDT 2 Tablets epoetin ken (EPOGEN) 20,000 unit/2 mL injection 9,000 Units 9,000 Units, intravenous, ONCE IN DIALYSIS, 1 dose, On Wed08/11/24 at 0645, Routine, DialysisIndications:ESRD (end stage renal disease) ([facility]) Given 08/11/2024 6:41 EDT 9,000 Units heparin injection 3,000 Units 3,000 Units, intravenous, ONCE IN DIALYSIS, 1 dose, On Wed08/11/24 at 0645, Routine, Dialysis, Now x1 bolus 1500 units to be given at the beginning of dialysis 500 units/hour to be given over the course of dialysis (3000 units total). Stop 1 hour prior to end of treatment. To be administered per Policy [id number].Indications:ESRD (end stage renal disease) ([facility]) Given 08/11/2024 6:41 EDT 3,000 Units LiquaCel liquid protein liquid 30 mL 30 mL, oral, ONCE IN DIALYSIS, 1 dose, On Wed08/11/24 at 0645, Patient's flavor preference: either, Routine, DialysisIndications:ESRD (end stage renal disease) ([facility]),Hypoalbuminemia Given 08/11/2024 6:29 EDT 30 mL documented in this encounter Orders Dialysis Count Last Ordered Date First Orde red Date HEMODIALYSIS 1 08/11/2024 documented in this encounter Care Teams Professor Of English Relationship Specialty Start Date End Date Ken Greer MD [address] [place] [address] PCP - General 07/07/23 Kiel Powers Mig Welder Nephrology 05/31/24 documented as of this encounter
--- OUTSIDE RECORDS SUMMARY | 2024-12-05 11:58 | XMS_ITS | Encounter Summary ---
Author Organization [facility] Address [address] [place] [address] Care Team Providers Care Jail Keeper Name Role Phone Ken Greer MD Primary Care Provider [phone] Kiel Powers Unavailable Unavailable Reason for Visit * Episode Based Medications (Routine) - New Request Specialty Diagnoses / Procedures Referred By Nader gardiner Referred To Contact Diagnoses ESRD (end stage renal disease) ([facility]) Carlota Jin MD [address] [place] [address] [address] [place] [address] Phone: tel: fax: [facility] [place] [address] [place] [address] Phone: tel: fax: Referral ID Status Reason Start Date Expiration Date V isits Requested Visits Authorized [id number] New Request 03/17/2024 1 1 Encounter Details Date Type Department Care Team (Latest Contact Info) Description 08/23/2024 6:45 EDT Treatment [facility] [address] [place], [place] [id number] Carlota Jin MD [address] [place] [address], [facility] [address] [place] [address] ESRD (end stage renal disease) ([facility]) (Primary Dx); Hypoalbuminemia; Secondary hyperparathyroidism ([facility]) Social History Tobacco Use Types Packs/Day Years Used Date Smoking Tobacco: Every Day Cigarettes 1 26.1 Started: 1998 Smokeless Tobacco: Never Alcohol Use Standard Drinks/Week Comments Yes 0 (1 standard drink = 0.6 oz pur e alcohol) Socially [facility] Utilities Answer Date Recorded In [...] in the past 12 m [facility], were you homeless [...] In the past 12 months has th [employer], gas, oil, or water [employer] threatened to shut off services in your [...] - Temperature - - Respiratory Rate 16 08/23/2024 0634 EDT Oxygen Saturation - - Inhaled Oxygen Concentration - - Weight 80.4 kg (177 lb 4 oz) 08/23/2024 0625 EDT Height - - Body Mass Index 25.43 [...] Flowsheet Note - Marcela Cox RN - 08/23/2024 1305 EDT 08/23/24 1054 Post-Hemodialysis Assessment Total Blood Processed (L) 88.41 Liters On Line Clearance: spKt/V 1.52 spKt/V Dialyzer Clearance Lightly streaked Treatment UFR (ml:kg:hr) 12.77 ml:kg:hr Critline refill Not done Fluid Removed (L) 4.3 L Post-Dialysis Scale Weight 92.5 kg (203 lb 14.8 oz) Wheelchair Weight 16.1 kg (35 lb 7.9 oz) Prosthesis Weight 0 kg (0 lb) Post-Treatment Weight (kg) 76.4 Treatment Weight Change (kg) 4 kg Day Target Weight (kg) 76.6 Post Sitting/Lying BP (!) 190/92 (RN alerted to BP) Post Sitting/Lying pulse 69 Temp 36.3 ??C (97.3 ??F) Temp src Temporal Minutes Short -246 Post access assessment Bruit present: Yes Thrill Present AVF/AFG Hemostasis achieved Yes Note Patient held for 10mins with blue clamps, having no issues Orientation Alert and Oriented x3 Yes Time Yes Place Yes Person Yes Cooperative Yes Disoriented No Discharge Ambulation Methods With patient transport;Departs via w/c Wrap up items Patient Response to Treatment Tolerated tx well. Removed 4.3L UF goal without difficulty. Comments No issues during tx, no concerns voiced post tx. * Dialysis Rounding - Paris Quintanilla NP - 08/23/2024 0645 EDT Dialysis Provider's Routine Assessment Gerson Bruner was seen and examined as appropriate during Dialysis. Pertinent lab results were reviewed. Changes since last visit: None Changes to current prescriptions/orders: None Patient was observed sleeping soundly during dialysis. I saw him right before he came off the machine. He said he was tired but had no other complaints. I asked if he slept last night and he said yesbut I could not tell the remainder of the statement because he does not clearly enunciate sometimes. 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 Noted that patient has been having some swallowing difficulty with ice cubes. Spouse had called PCP office about swallow eval as recommended by Dr. Jin, reported this to RD.RD note reviewed. Phosphorus and potassium management ongoing topics, patient on kayexalate. Paris Quintanilla NP documented in this encounter Plan of Treatment Upcoming Encounters Date Type Department Care Team (Late st Contact Info) Description 12/06/2024 6:45 EST Treatment [facility] [place] [address] [place], [place] [id number] Carlota Jin MD [address] [place], [place] [id number], [facility] [address] [place] [address] 12/08/2024 6:45 EST Treatment [facility] [place] [address] [place] [id number] Carlota Jin MD 1 [facility], [facility] [address] [place] [phone] 12/11/2024 6:45 EST Treatment [facility] [place] [address] [place], [place] [id number] Carlota Jin MD 1 [facility], [address] [phone] 12/13/2024 6:45 EST Treatment [facility] [place] [address] [place] [address] Carlota Jin MD 1 [facility], [address] [phone] 12/15/2024 6:45 EST Treatment [facility] [place] [address] [place], [place] [id number] Carlota Jin MD 1 [facility], [address] [phone] 12/18/2024 6:45 EST Treatment [facility] [place] [address] [place], [place] [id number] Carlota Jin MD 1 [facility], [address] [phone] 12/20/2024 6:45 EST Treatment [facility] [address] [place], [place] [id number] Carlota Jin MD [address] [phone] 12/22/2024 6:45 EST Treatment [facility] [address] [place], [place] [id number] Carlota Jin MD 1 [facility], [address] [phone] 12/25/2024 6:45 EST Treatment [facility] [place] [address] [place], [place] [id number] Carlota Jin MD 1 [facility], [facility] [address] [place] [phone] 12/27/2024 6:45 EST Treatment [facility] [place] [address] [place], [place] [id number] Carlota Jin MD 1 [facility], [facility] [address] [place] [phone] 12/29/2024 6:45 EST Treatment [facility] [address] [place] [address] Carlota Jin MD 1 [facility], [facility] [address] [place] [phone] 01/01/2025 6:45 EDT Treatment [facility] [address] [place], [place] [id number] Carlota Jin MD 1 [facility], [facility] [address] [place] [phone] 01/03/2025 6:45 EDT Treatment [facility] [address] [place], [place] [id number] Carlota Jin MD 1 [facility], [facility] [address] [place] [phone] 01/05/2025 6:45 EDT Treatment [facility] [place] [address] [place], [place] [id number] Carlota Jin MD 1 [facility], [facility] [address] [place] [phone] 01/08/2025 6:45 EDT Treatment [facility] [place] [address] [place], [place] [id number] Carlota Jin MD 1 [facility], [facility] [address] [place] [phone] 01/10/2025 6:45 EDT Treatment [facility] [place] [address] [place], [place] [id number] Carlota Jin MD 1 [facility], [address] [phone] 01/12/2025 6:45 EDT Treatment [facility] [place] [address] [place], [place] [id number] Carlota Jin MD [address] [phone] 01/15/2025 6:45 EDT Treatment [facility] [place] [address] [place], [place] [id number] Carlota Jin MD [address] [phone] 01/17/2025 6:45 EDT Treatment [facility] [place] [address] [place], [place] [id number] Carlota Jin MD 1 [facility], [address] [place] [phone] 01/19/2025 6:45 EDT Treatment [facility] [place] [address] [place], [place] [id number] [facility], [facility] [address] [place] [phone] 01/22/2025 6:45 EDT Treatment [facility] [place] [address] [place], [place] [id number] Carlota Jin MD 1 [facility], [facility] [address] [place] [phone] 01/24/2025 6:45 EDT Treatment [facility] [place] [address] [place], [place] [id number] Carlota Jin MD 1 [facility], [facility] [address] [place] [phone] 01/26/2025 6:45 EDT Treatment [facility] [place] [address] [place] [address] Carlota [facility] MD 1 [facility], [facility] [address] [place] [phone] 01/29/2025 6:45 EDT Treatment [facility] [address] [place], [place] [id number] Carlota Jin MD 1 [facility], [facility] [address] [place] [phone] 01/31/2025 6:45 EDT Treatment [facility] [place] [address] [place], [place] [id number] Carlota Jin MD 1 [facility], [facility] [address] [place] [phone] 02/02/2025 6:45 EDT Treatment [facility] [place] [address] [place], [place] [id number] Carlota Jin MD 1 [facility], [facility] [address] [place] [phone] 02/05/2025 6:45 EDT Treatment [facility] [place] [address] [place], [place] [id number] Carlota Jin MD 1 [facility], [address] [phone] 02/07/2025 6:45 EDT Treatment [facility] [place] [address] [place], [place] [id number] Carlota Jin MD 1 [facility], [facility] [address] [place] [phone] 02/09/2025 6:45 EDT Treatment [facility] [place] [address] [place], [place] [id number] Carlota Jin MD 1 [facility], [facility] [address] [place] [phone] 02/12/2025 6:45 EDT Treatment [facility] [place] [address] [place], [place] [id number] Carlota Jin MD 1 [facility], [facility] [address] [place] [phone] 02/14/2025 6:45 EDT Treatment [facility] [place] [address] [place], [place] [id number] Carlota Jin MD 1 [facility], [facility] [address] [place] [phone] 02/16/2025 6:45 EDT Treatment [facility] [place] [address] [place], [place] [id number] Carlota Jin MD 1 [facility], [address] [phone] 02/19/2025 6:45 EDT Treatment [facility] [place] [address] [place], [place] [id number] Carlota Jin MD 1 [facility], [address] [phone] 02/21/2025 6:45 EDT Treatment [facility] [address] [place], [place] [id number] Carlota Jin MD 1 [facility], [address] [phone] documented as of this encounter Procedures Procedure Name Priority Date/Time Associated Diagnosis Comments COMPLETE BLOOD COUNT Routine 08/23/2024 6:39 EDT ESRD (end stage renal disease) ([facility]) HEMODIALYSIS Routine 08/23/2024 6:35 EDT ESRD (end stage renal disease) ([facility]) documented in this encounter Results * (ABNORMAL) COMPLETE BLOOD COUNT (08/23/2024 6:39 EDT) WBC 7.56 4.00 - 10.40 K/cmm 08/24/2024 1:01 [facility] RBC 3.34(L) 4.36 - 5.78 M/cmm 08/24/2024 1:01 [facility] Hemoglobin 9.4(L) 13.8 - 17.3 g/dL 08/24/2024 1:01 [facility] HCT 29.6(L) 39.5 - 50.2 % 08/24/2024 1:01 [facility] MCV 89 81 - 95 fL 08/24/2024 1:01 [facility] MCH 28.1 27.6 - 33.0 pg 08/24/2024 1:01 [facility] MCHC 31.8(L) 32.8 - 36.4 g/dL 08/24/2024 1:01 [facility] RDW-CV 19.7(H) <14.2 % 08/24/2024 1:01 [facility] RDW-SD 64.8(H) <46.0 fl 08/24/2024 1:01 [facility] PLT 225 141 - 377 K/cmm 08/24/2024 1:01 [facility] MPV 12.0 9.5 - 12.7 fL 08/24/2024 1:01 [facility] Blood VENOUS BLOOD / Unknown Venipuncture / Unknown 08/23/2024 6:39 EDT 08/23/2024 6:39 EDT us Carlota Jin MD HEMATOLOGY & PF4 ORDERABL ES Final Result [facility] [address] [place] [address] documented in this encounter Visit Diagnoses Diagnosis ESRD (end stage renal disease) ([facility] Primary End stage renal disease Hypoalbuminemia Other disorders of plasma protein metabolism Secondary hyperparathyroidism ([facility]) Secondary hyperparathyroidism (of renal origin) documented in this encounter Administered Medications Inactive Administered Medications - up to 3 most recent administrations Medication Order MAR Action Action Date Dose Rate Site calcium carbonate (TUMS) tablet 500 mg (200 mg elemental calcium) 2 Tablet 2 Tablet, oral, ONCE IN DIALYSIS, 1 dose, On Wed08/23/24 at 0700, Routine, DialysisIndications:ESRD (end stage renal disease) ([facility]),Secondary hyperparathyroidism ([facility]) Given 08/23/2024 6:55 EDT 2 Tablets epoetin ken (EPOGEN) 20,000 unit/2 mL injection 9,000 Units 9,000 Units, intravenous, ONCE IN DIALYSIS, 1 dose, On Wed08/23/24 at 0700, Routine, DialysisIndications:ESRD (end stage renal disease) ([facility]) Given 08/23/2024 6:54 EDT 9,000 Units heparin injection 3,000 Units 3,000 Units, intravenous, ONCE IN DIALYSIS, 1 dose, On Wed08/23/24 at 0700, Routine, Dialysis, Now x1 bolus 1500 units to be given at the beginning of dialysis 500 units/hour to be given over the course of dialysis (3000 units total). Stop 1 hour prior to end of treatment. To be administered per Policy [id number].Indications:ESRD (end stage renal disease) ([facility]) Given 08/23/2024 6:55 EDT 3,000 Units LiquaCel liquid protein liquid 30 mL 30 mL, oral, ONCE IN DIALYSIS, 1 dose, On Wed08/23/24 at 0700, Patient's flavor preference: either, Routine, DialysisIndications:ESRD (end stage renal disease) ([facility]),Hypoalbuminemia Given 08/23/2024 6:54 EDT 30 mL documented in this encounter Orders Dialysis Count Last Ordered Date First Orde red Date HEMODIALYSIS 1 08/23/2024 documented in this encounter Care Teams Jail Keeper Relationship Specialty Start Date End Date Ken Greer MD [address] [place] [address] PCP - General 07/07/23 Priya, Kiel Rewards Consultant Nephrology 05/31/24 documented as of this encounter
--- OUTSIDE RECORDS SUMMARY | 2024-12-05 11:59 | XMS_ITS | Encounter Summary ---
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 Name Role Phone Ken Greer MD Primary Care Provider [phone] Kiel Powers Unavailable Unavailable Reason for Visit * Episode Based Medications (Routine) - New Request Specialty Diagnoses / Procedures Referred By Nader gardiner Referred To Contact Diagnoses ESRD (end stage renal disease) ([facility]) Carlota Jin MD [address] [place] [address] 2 [place] [address] Phone: tel: fax: [facility] [address] [place] [place] [address] Phone: tel: fax: Referral ID Status Reason Start Date Expiration Date V isits Requested Visits Authorized [id number] New Request 03/17/2024 1 1 Encounter Details Date Type Department Care Team (Latest Contact Info) Description 07/24/2024 6:45 EDT Treatment [facility] [address] [place], [place] [phone] Carlota Jin MD [address] [place] [address], [facility] [address] [place] [address] ESRD (end stage renal disease) ([facility]) (Primary Dx); Hypoalbuminemia; Secondary hyperparathyroidism ([facility]) Social History Tobacco Use Types Packs/Day Years Used Date Smoking Tobacco: Every Day Cigarettes 1 26.1 Started: 1998 Smokeless Tobacco: Never Alcohol Use Standard Drinks/Week Comments Yes 0 (1 standard drink = 0.6 oz pur e alcohol) Socially [facility] Utilities Answer Date Recorded In [...] any time in the past 12 m [facility], were you homeless or living [...] the past 12 months has th e [employer], gas, oil, or water [employer] threatened to shut off services in your [...] - Temperature - - Respiratory Rate 16 07/24/2024 1041 EDT Oxygen Saturation - - Inhaled Oxygen Concentration - - Weight 81.2 kg (179 lb 0.2 oz) 07/24/2024 0623 E DT Height - - Body Mass [...] Author Yes 05/30/2024 18:25 EDDaria Whitfield RN documented as of this encounter Mental Status * Because of a physical, mental, or emotional condition, do you have serious difficulty concentrating, remembering, or making decisions? (5 years old or older) Answer Entry Date Author No 05/30/2024 18:25 Daria Baca RN documented in this encounter Miscellaneous Notes * Flowsheet Note - Lewis Barnes RN - 07/24/2024 1148 EDT 07/24/24 1041 Post-Hemodialysis Assessment On Line Clearance: spKt/V 1.52 spKt/V Dialyzer Clearance Lightly streaked Critline refill Not done Post-Dialysis Scale Weight (Pt departed emergently, no weight taken) Wheelchair Weight 19 kg (41 lb 14.2 oz) Prosthesis Weight 0 kg (0 lb) Post Sitting/Lying BP (!) 192/96 Post Sitting/Lying pulse 69 Post Standing BP (wheelchair transfer) Post Standing Pulse (wheelchair transfer) Temp 36.5 ??C (97.7 ??F) Temp src Temporal Resp 16 Minutes Short -242 Post access assessment Bruit present: Yes Thrill Present AVF/AFG Hemostasis achieved Yes Note Patient held for 10mins with blue clamps without any issues Orientation Alert and Oriented x3 Yes Time Yes Place Yes Person Yes Cooperative Yes Disoriented No Discharge Ambulation Methods Departs via w/c Wrap up items Report called to floor NA Patient Response to Treatment Pt taken to [facility] ED by dialysis staff for AMS post treatment. Notably warm to touch and diaphoretic however afebrile when measured with temporal thermometer available in unit. Treatment itself uneventful otherwise. * Dialysis Comprehensive - Carlota Jin MD - 07/24/2024 0645 EDT Images from the original note were not included. 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 associated with type 2diabetes mellitus ([facility]) ESRD (end stage renal disease) ([facility]) Primary hypertension [I10] Hearing loss Herniation of lumbar intervertebral disc with radiculopathy Hyperlipidemia Proteinuria Right sided numbness Secondary hyperparathyroidism ([facility]) TIA (transient ischemic attack) Type II or unspecified type diabetes mellitus with neurological manifestations, uncontrolled(250.62) Encounter for immunization Hypoalbuminemia Anemia of chronic renal failure Abnormal albumin Cellulitis and abscess of foot, except toes Encounter for therapeutic drug monitoring Diabetic foot infection ([facility]) [E11.628, L08.9] COVID Type 2 diabetes mellitus with chronic kidney disease on chronic dialysis, with long-term current use of insulin ([facility]) [E11.22, N18.6, Z99.2, Z79.4] Anemia of chronic renal failure, stage 5 ([facility]) [N18.5, D63.1] ESRD on hemodialysis ([facility]) Atrial fibrillation and flutter ([facility]) Anemia in chronic kidney disease Anxiety and depression GERD (gastroesophageal reflux disease) Nicotine dependence, cigarettes, uncomplicated Non-healing open wound of heel Olecranon bursitis, right elbow Osteoarthrosis Peripheral neuropathy Retinopathy Sciatica Smoker Type 2 diabetes mellitus with diabetic neuropathy, unspecified ([facility]) Secondary hyperparathyroidism of renal origin ([facility]) Diabetes mellitus ([facility]) Treatment Modality: Patient received information regarding treatment [...] Listing On-Hold? No No No Transplant Center [facility] Comments Patient does not meet transplant criteria due to daily smoking cigarettes pt referred to transplant @ [facility] declined due to severe PVD with [...] with Nursing: Yes Average Interdialytic Fluid Gains: 07/19/2024 6:31 07/19/2024 10:57 07/21/2024 6:18 07/21/2024 6:21 07/21/2024 10:41 07/24/2024 6:20 07/24/2024 6:23 InterDialytic +/- Gain/Loss 2.5 3.4 3.4 6.1 6.1 Wt (pre) 77.7 78.5 78.5 81.2 81.2 Wt (post) 75.1 75.1 Treatment UFR (ml:kg:hr) 8.58 ml:kg:hr 11 ml:kg:hr BP (post) 201/103 175/94 175/94 180/94 180/94 Pulse(post) 68 72 72 73 73 Resp (/min) 16 16 Volume and blood pressure have been addressed with the following changes: None Consistently able to achieve estimated dry weight? No: very large inter-dialytic fluid gains Blood pressure is in range for patient? No. Hypertension: home pressures not known Any adverse intradialytic symptoms? Yes: headache, confusion Plan: A decision was made to send him to the ED after completing his session due to his encephalopathy. He was also diaphoretic. Physical Exam Constitutional Somnolent, confused Respiratory: Unlabored breathing, CTAB Cardiac: distant Abdomen: soft Extremities: Bilateral amputations Hospitalization Hospitalization in Previous 1 Month: No Emergency Room Visit in Previous 1 Month: Yes: today; sent from dialysis Access Management Current LDAs: Hemodialysis Arteriovenous Access 02/13/19 (Active) AV Fistula Present 07/24/24 0646 Site Assessment Clean;Dry;Intact;Bruit heard;Thrill felt 07/24/24 0646 Current State Active 07/24/24 0646 Status Accessed 07/24/24 0646 Is Maturing N 07/24/24 0646 Local Anesthetic None 07/24/24 0646 Site Prep Chlorhexidine 07/24/24 0646 Venous Needle Size 15 G 07/24/24 0646 Arterial/Generic Needle Size 15 G 07/24/24 0646 Accessed by: Sandra Rae 07/24/24 0646 Access Attempts 1 07/24/24 0646 Dressing Status/Care Clean/Dry/Intact 07/24/24 0646 Dressing Intervention Other (Comment) 05/30/242054 Patient has [...] insulin pen needles 32G x 5/32, Brand: [employer] Ultra Fine Anny. ISS TID and levemir [...] 650 mg, 650 mg, oral, Q4H PRN, Skye Gomez NP, 650 mg at 07/24/24 0850 Adjustment made to home medication: No Dialysis Medication Review Dialysis Plan Order Summary All Current Orders Interval Duration Due Hemodialysis Therapy Plan Dialysis Treatment In-Center Hemodialysis 3 times a week Week of 07/23/2024 Routine, ONE TIME Starting when released Prescribed [...] - UF Profile: None Dialysis Last released: Wed07/24/2024 Oxygen Therapy (Age 2 yrs. to Adult) PRN PRN Routine, CONTINUOUS Starting when released Until Specified Initial Setting: As directed Device: Nasal cannula lpm: 2 Adjust flow rate and/or delivery device in order to maintain: 92% to 98% Last released: Wed11/15/2023 Medications acetaminophen (TYLENOL) tablet 650 mg PRN PRN 650 mg, oral, EVERY 4 HOURS PRN Starting when released Until Discontinued, Pain, Dialysis Last released: Wed07/24/2024 diphenhydrAMINE (BENADRYL) capsule 25 mg PRN PRN [...] endof treatment. To be administered per Policy [id number]. Last released: Wed07/24/2024 sodium chloride 0.9 % BOLUS 100 mL PRN PRN 100 mL, intravenous, PRN Starting when released Until Discontinued, Other, hypotension or cramping,Dialysis Last released: Never Dialysis Weekly Labs Complete Blood Count Weekly: Wed07/26/2024 Routine, ONE TIME Starting when released, Blood, Venous, Blood Dialysis Last released: Wed07/19/2024 Dialysis Monthly Labs Dialysis Iron (Includes Iron, IBC, and Ferritin) - Nephrology Use Only On the Wed of every 1 month Wed07/31/2024 Routine, ONE TIME Starting when released, Blood, Venous, Blood Dialysis Last released: Wed06/26/2024 Dialysis Routine- Dialysis Use Only On the Wed of every 1 month Wed07/31/2024 Routine, ONE TIME Starting when released, Blood, Blood, Venous Dialysis Last released: Wed06/26/2024 Postdialysis BUN with URR Calculation On the Wed of every 1 month Wed07/31/2024 Routine, ONE TIME Starting when released, Blood, Blood, Venous Dialysis Last released: Wed06/26/2024 Dialysis Quarterly Labs PTH Intact On the Mon of every 3 months Wed07/31/2024 Routine, ONE TIME Starting when released, Blood, Venous, Blood Dialysis Last released: Wed05/01/2024 Dialysis Annual Labs - October Dialysis Hepatitis- Dialysis Use Only On the Wed of every 12 months Wed10/30/2024 Routine, ONE TIME Starting when released, Blood, Blood, Venous Dialysis Last released: Wed10/27/2023 Folate On the Wed of every 12 months Wed10/30/2024 Routine, ONE TIME Starting when released, Blood, Venous, Blood Dialysis Last released: 10/27/2023 Vitamin B12 On the Wed of every [...] results from tests performed at [facility] and does not apply for Miscellaneous Test Order): Immediate Last released: Never HEMODIALYSIS NUTRITIONAL SUPPLEMENTS Nutritional Supplements LiquaCel liquid protein liquid 30 mL Every visit Every visit 30 mL, oral, ONCE IN DIALYSIS Starting when released Patient's flavor preference: either Last released: Wed07/24/2024 HEMODIALYSIS CKD MBD MEDS Medications calcium carbonate (TUMS) tablet 500 mg (200 mg elemental calcium) 2 Tablet Every visit Every visit 2 Tablet, oral, ONCE IN DIALYSIS Starting when released, Dialysis Last released: Wed07/24/2024 Adjustment made to dialysis medication: No Laboratory Results Dialysis Adequacy: spKt/V: 1.45 (Calculated from:; BUN Pre-Dialysis: 67 mg/dL at 06/26/2024 11:41; BUN Post-Dialysis: 21mg/dL at 06/26/2024 11:41; Pre-Treatment Weight (kg): 83.5 at 06/26/2024 6:31; Post-Treatment Weight (kg): 78.6 at 06/26/2024 10:48; Duration of Treatment (minutes): 242 minutes at 06/26/2024 10:48) Plan: Continue current dialysis prescription Anemia Management: Lab Results Component Value Date WBC 8.20 07/19/2024 HGB 11.7 (L) 07/19/2024 HGB 12.6 (L) 07/12/2024 HGB 12.2 (L) 07/05/2024 PLT 205 07/19/2024 FOLATE >24.0 10/27/2023 [id number] 607 10/27/2023 FERRITIN 332 (H) 06/26/2024 Current GEORGE/Dose: None Iron Series/Maintenance: This patient does not have an active medication from one of the medication groupers. Oral Iron: This patient does not have an active medication from one of the medication groupers. Blood Transfusion in Last Month: No Patient Meets Anemia Management Goals: Yes Plan: Managed per protocol Mineral and Renal Bone Disease Management: Lab Results Component Value Date LABALBU 3.2 (L) 06/26/2024 ALKPHOS 124 06/26/2024 PHOS 8.9 (H) 06/26/2024 CALCIUM 8.6 06/26/2024 CALCCA 9.2 06/26/2024 PTH 250 (H) 05/01/2024 Vitamin D: cholecalciferol (Vitamin D3) - 25 mcg (1,000 unit) sevelamer carbonate - 800 mg This patient does not have an active medication from one of the medication groupers. Plan: Managed per protocol Potassium Management: Lab Results Component Value Date K 7.5 (HH) 07/10/2024 Prescribed Potassium Concentrate: HEMODIALYSIS Ordered at: 07/24/24 0620 Dialysate concentrate: Potassium 2 mEq/L Calcium 2.5 mEq/L 07/24/2024 6:20 Last Dialysis Prescription released on: Selected bath: Potassium 2 mEq/L Calcium 2.5 mEq/L sevelamer carbonate - 800 mg sodium polystyrene Plan: Managed per protocol Nutrition: Lab Results Component Value Date LABALBU 3.2 (L) 06/26/2024 TP 6.4 12/19/2023 NA 132 (L) 06/26/2024 SERGLU 265 (H) 05/31/2024 HGBA1C 11.6 (H) 11/07/2023 Protein Supplements: This patient does not have an active medication from one of the medication groupers. Plan: Managed per protocol Comments: Ongoing issues with hyperkalemia (has not yet been able to get Lokelma). Also with episode of suicidal ideation last week after learning that he would never be a transplant candidate. He was sent to the ED today for his acute confusion during dialysis. Ultimately diagnosed with hypoglycemia. Need to have GOC discussions, preferably when he is not on dialysis, with his present. We willtry to arrange this. Carlota Jin MD documented in this encounter Plan of Treatment Upcoming Encounters Date Type Department Care Team (Late st Contact Info) Description 12/06/2024 6:45 EST Treatment [facility] [address] [place], [place] [phone] Carlota Jin MD 1 [facility], [facility] 2 [place] [phone] 12/08/2024 6:45 EST Treatment [facility] [address] [place], [place] [phone] Carlota Jin MD 1 [facility], [address] [phone] 12/11/2024 6:45 EST Treatment [facility] [address] [place], [place] [phone] Carlota Jin MD 1 [facility], [address] [phone] 12/13/2024 6:45 EST Treatment [facility] [address] [place], [place] [phone] Carlota Jin MD 1 [facility], [facility] [address] [place] [phone] 12/15/2024 6:45 EST Treatment [facility] [address] [place], [place] [phone] Carlota Jin MD [address] [place] [address], [facility] [address] [place] [phone] 12/18/2024 6:45 EST Treatment [facility] [address] [place], [place] [phone] Carlota Jin MD 1 [facility], [facility] 2 [place] [phone] 12/20/2024 6:45 EST Treatment [facility] [address] [place], [place] [phone] Carlota Jin MD 1 [facility], [facility] [address] [place] [phone] 12/22/2024 6:45 EST Treatment [facility] [address] [place], [place] [phone] Carlota Jin MD 1 [facility], [facility] [address] [place] [phone] 12/25/2024 6:45 EST Treatment [facility] [address] [place], [place] [phone] Carlota Jin MD 1 [facility], [facility] [address] [place] [phone] 12/27/2024 6:45 EST Treatment [facility] [address] [place], [place] [phone] Carlota Jin MD 1 [facility], [facility] 2 [place] [phone] 12/29/2024 6:45 EST Treatment [facility] [address] [place] [phone] Carlota Jin MD 1 [facility], [facility] 2 [place] [phone] 01/01/2025 6:45 EDT Treatment [facility] [address] [place], [place] [phone] Carlota Jin MD 1 [facility], [facility] [address] [place] [phone] 01/03/2025 6:45 EDT Treatment [facility] [address] [place] [address] Carlota Jin MD 1 [facility], [address] [phone] 01/05/2025 6:45 EDT Treatment [facility] [address] [place], [place] [phone] Carlota Jin MD 1 [facility], [address] [phone] 01/08/2025 6:45 EDT Treatment [facility] [address] [place] [address] Carlota Jin MD 1 [facility], [facility] 2 [place] [phone] 01/10/2025 6:45 EDT Treatment [facility] [address] [place], [place] [phone] Carlota Jin MD 1 [facility], [facility] 2 [place] [phone] 01/12/2025 6:45 EDT Treatment [facility] [address] [place], [place] [address] Carlota Jin MD 1 [facility], [facility] [address] [place] [phone] 01/15/2025 6:45 EDT Treatment [facility] [address] [place], [place] [phone] Carlota Jin MD 1 [facility], [facility] 2 [place] [phone] 01/17/2025 6:45 EDT Treatment [facility] [address] [place], [place] [address] Carlota Jin MD 1 [facility], [address] [phone] 01/19/2025 6:45 EDT Treatment [facility] [address] [place], [place] [address] Carlota Jin MD 1 [facility], [facility] [address] [place] [phone] 01/22/2025 6:45 EDT Treatment [facility] [address] [place], [place] [phone] Carlota Jin MD 1 [facility], [facility] 2 [place] [phone] 01/24/2025 6:45 EDT Treatment [facility] [address] [place], [place] [address] Carlota Jin MD 1 [facility], [address] [phone] 01/26/2025 6:45 EDT Treatment [facility] [address] [place] [address] Carlota Jin MD 1 [facility], [address] [phone] 01/29/2025 6:45 EDT Treatment [facility] [address] [place], [place] [address] Carlota Jin MD 1 [facility], [address] [phone] 01/31/2025 6:45 EDT Treatment [facility] [address] [place] [address] Carlota Jin MD 1 [facility], [address] [phone] 02/02/2025 6:45 EDT Treatment [facility] [address] [place], [place] [phone] Carlota Jin MD [address] [phone] 02/05/2025 6:45 EDT Treatment [facility] [address] [place], [place] [address] Carlota Jin MD 1 [facility], [address] [phone] 02/07/2025 6:45 EDT Treatment [facility] [address] [place], [place] [phone] Carlota Jin MD 1 [facility], [facility] 2 [place] [phone] 02/09/2025 6:45 EDT Treatment [facility] [address] [place], [place] [phone] Carlota Jin MD 1 [facility], [address] [phone] 02/12/2025 6:45 EDT Treatment [facility] [address] [place], [place] [phone] Carlota Jin MD 1 [facility], [facility] 2 [place] [phone] 02/14/2025 6:45 EDT Treatment [facility] [address] [place], [place] [phone] Carlota Jin MD 1 [facility], [facility] 2 [place] [phone] 02/16/2025 6:45 EDT Treatment [facility] [address] [place], [place] [phone] Carlota Jin MD 1 [facility], [facility] 2 [place] [phone] 02/19/2025 6:45 EDT Treatment [facility] [address] [place], [place] [phone] Carlota Jin MD 1 [facility], [facility] 2 [place] [phone] 02/21/2025 6:45 EDT Treatment [facility] [address] [place], [place] [phone] Carlota Jin MD 1 [facility], [facility] 2 [place] [phone] documented as of this encounter Procedures Procedure Name Priority Date/Time Associated Diagnosis Comments HEMODIALYSIS Routine 07/24/2024 6:20 EDT ESRD (end stage renal disease) ([facility]) documented in this encounter Visit Diagnoses Diagnosis ESRD (end stage renal disease) ([facility])- Primary End stage renal disease Hypoalbuminemia Other disorders of plasma protein metabolism Secondary hyperparathyroidism ([facility]) Secondary hyperparathyroidism (of renal origin) documented in this encounter Administered Medications Inactive Administered Medications - up to 3 most recent administrations Medication Order MAR Action Action Date Dose Rate Site acetaminophen (TYLENOL) tablet 650 mg 650 mg, oral, EVERY 4 HOURS PRN, Starting on Wed07/24/24 at 0633, Until Wed07/24/24 at 1636, Pain, Routine, DialysisIndications:ESRD (end stage renal disease) ([facility]) Given 07/24/2024 8:50 EDT 650 mg calcium carbonate (TUMS) tablet 500 mg (200 mg elemental calcium) 2 Tablet 2 Tablet, oral, ONCE IN DIALYSIS, 1 dose, On Wed07/24/24 at 0645, Routine, DialysisIndications:ESRD (end stage renal disease) ([facility]),Secondary hyperparathyroidism ([facility]) Given 07/24/2024 6:41 EDT 2 Tablets heparin injection 3,000 Units 3,000 Units, intravenous, ONCE IN DIALYSIS, 1 dose, On Wed07/24/24 at 0645, Routine, Dialysis, Now x1 bolus 1500 units to be given at the beginning of dialysis 500 units/hour to be given over the course of dialysis (3000 units total). Stop 1 hour prior to end of treatment. To be administered per Policy [id number].Indications:ESRD (end stage renal disease) ([facility]) Given 07/24/2024 6:41 EDT 3,000 Units LiquaCel liquid protein liquid 30 mL 30 mL, oral, ONCE IN DIALYSIS, 1 dose, On 07/24/24 at 0645, Patient's flavor preference: either, RoutineIndications:ESRD (end stage renal disease) ([facility]),Hypoalbuminemia Given 07/24/2024 6:41 EDT 30 mL documented in this encounter Orders Dialysis Count Last Ordered Date First Orde red Date HEMODIALYSIS 1 07/24/2024 documented in this encounter Care Teams Power Ballast Machine Operator Relationship Specialty Start Date End Date Ken Greer MD [address] [place] [address] PCP - General 07/07/23 Kiel Powers Soap Maker Nephrology 05/31/24 documented as of this encounter
--- OUTSIDE RECORDS SUMMARY | 2024-12-05 11:59 | XMS_ITS | Encounter Summary ---
Author Organization [facility] Address [address] [place] [address] Care Team Providers Care Appraisal Coordinator Name Role Phone Ken Greer MD Primary Care Provider [phone] Kiel Powers Unavailable Unavailable Encounter Details Date Type Department Care Team (Late st Contact Info) Description 07/21/2024 Documentation Visit [facility] Home Dialysis Training & Support [address] [place], [place] [id number] Alexa Estrada, [facility] [address] [place] [address] Social History Tobacco Use Types Packs/Day Years Used Date Smoking Tobacco: Every Day Cigarettes 1 26.1 Started: 1998 Smokeless Tobacco: Never Alcohol Use Standard Drinks/Week Comments Yes 0 (1 standard drink = 0.6 oz pur e alcohol) Socially [facility] Utilities Answer Date Recorded In the past 12 months has e [employer], gas, oil, or water [employer] threatened to shut off services in your [...] in a longterm (including now)? No 05/30/2024 Interpersonal Safety Answer Date Record ed How often does anyone, martin lyons family, hit, punch or physically hurt you? 05/30/2024 How often does anyone, martin lyons family, insult, scream, curse or threaten to hurt you? 05/30/2024 Living Situation Answer Date Recorded What is your living situation today? I have a [facility] place to live 05/30/2024 Think about [...] th e electric, gas, oil, or water [employer] threatened to shut off services in your [...] Contact Info) Description 12/06/2024 6:45 EST Treatment [facility] [address] [place], [place] [id number] Carlota Jin MD 1 [facility], Level [address] [place] [address] 12/08/2024 6:45 EST Treatment [facility] [address] [place], [place] [address] Carlota Jin MD 1 [facility], [facility] 2 [place] [phone] 12/11/2024 6:45 EST Treatment [facility] [place] [address] [place], [place] [id number] Carlota Jin MD 1 [facility], [address] [phone] 12/13/2024 6:45 EST Treatment [facility] [place] [address] [place], [place] [id number] Carlota Jin MD 1 [facility], [address] [phone] 12/15/2024 6:45 EST Treatment [facility] [place] [address] [place], [place] [id number] Carlota Jin MD 1 [facility], [address] [phone] 12/18/2024 6:45 EST Treatment [facility] [place] [address] [place], [place] [id number] Carlota Jin MD [address] [phone] 12/20/2024 6:45 EST Treatment [facility] [place] [address] [place], [place] [id number] Carlota Jin MD 1 [facility], [facility] 2 [place] [phone] 12/22/2024 6:45 EST Treatment [facility] [place] [address] [place], [place] [id number] Carlota Jin MD 1 [facility], [facility] 2 [place] [phone] 12/25/2024 6:45 EST Treatment [facility] [place] [address] [place], [place] [id number] Carlota Jin MD 1 [facility], [facility] 2 [place] [phone] 12/27/2024 6:45 EST Treatment [facility] [place] [address] [place] [address] Carlota Jin MD 1 [facility], [facility] 2 [place] [phone] 12/29/2024 6:45 EST Treatment [facility] [place] [address] [place], [place] [id number] Carlota Jin MD 1 [facility], [facility] 2 [place] [phone] 01/01/2025 6:45 EDT Treatment [facility] [place] [address] [place], [place] [address] Carlota Jin MD 1 [facility], [facility] 2 [place] [phone] 01/03/2025 6:45 EDT Treatment [facility] [place] [address] [place], [place] [address] Carlota Jin MD 1 [facility], [facility] 2 [place] [phone] 01/05/2025 6:45 EDT Treatment [facility] [place] [address] [place], [place] [id number] Carlota Jin MD 1 [facility], [facility] 2 [place] [phone] 01/08/2025 6:45 EDT Treatment [facility] [place] [address] [place] [address] Carlota Jin MD 1 [facility], [address] [phone] 01/10/2025 6:45 EDT Treatment [facility] [place] [address] [place], [place] [id number] Carlota Jin MD [address] [phone] 01/12/2025 6:45 EDT Treatment [facility] [place] [address] [place], [place] [address] Carlota Jin MD [address] [phone] 01/15/2025 6:45 EDT Treatment [facility] [place] [address] [place], [place] [id number] Carlota Jin MD 1 [facility] 2 [place] [phone] 01/17/2025 6:45 EDT Treatment [facility] [place] [address] [place], [place] [id number] Carlota Jin MD [address] [facility], [facility] 2 [place] [phone] 01/19/2025 6:45 EDT Treatment [facility] [place] [address] [place], [place] [id number] Carlota Jin MD 1 [facility], [facility] 2 [place] [phone] 01/22/2025 6:45 EDT Treatment [facility] [place] [address] [place], [place] [id number] Carlota Jin MD [address] [facility], [facility] 2 [place] [phone] 01/24/2025 6:45 EDT Treatment [facility] [place] [address] [place] [address] Carlota Jin MD [address] [facility], [facility] 2 [place] [phone] 01/26/2025 6:45 EDT Treatment [facility] [place] [address] [place], [place] [id number] Carlota Jin MD [address] [facility], [facility] 2 [place] [phone] 01/29/2025 6:45 EDT Treatment [facility] [place] [address] [place], [place] [address] Carlota Jin MD 1 [facility], [facility] 2 [place] [phone] 01/31/2025 6:45 EDT Treatment [facility] [place] [address] [place], [place] [address] Carlota Jin MD [address] [place] [address], [address] [phone] 02/02/2025 6:45 EDT Treatment [facility] [place] [address] [place], [place] [address] Carlota Jin MD [address] [place] [address], [address] [phone] 02/05/2025 6:45 EDT Treatment [facility] [place] [address] [place], [place] [address] Carlota Jin MD [address] [place] [address], [facility] 2 [place] [phone] 02/07/2025 6:45 EDT Treatment [facility] [place] [address] [place], [place] [address] Carlota Jin MD 1 [facility], [facility] 2 [place] [phone] 02/09/2025 6:45 EDT Treatment [facility] [place] [address] [place], [place] [address] Carlota Jin MD 1 [facility], [facility] 2 [place] [phone] 02/12/2025 6:45 EDT Treatment [facility] [place] [address] [place], [place] [address] Carlota Jin MD 1 [facility], [facility] 2 [place] [phone] 02/14/2025 6:45 EDT Treatment [facility] [place] [address] [place] [address] Carlota Jin MD 1 [facility], [facility] 2 [place] [phone] 02/16/2025 6:45 EDT Treatment [facility] [place] [address] [place], [place] [address] [phone] Carlota Jin MD 1 [facility], [facility] 2 [place] [phone] 02/19/2025 6:45 EDT Treatment [facility] [place] [address] [place] [address] Carlota Jin MD 1 [facility], [facility] 2 [place] [phone] 02/21/2025 6:45 EDT Treatment [facility] [place] [address] [place], [place] [id number] Carlota Jin MD 1 [facility], [facility] 2 [place] [phone] documented as of this encounter Visit Diagnoses Not on filedocumented in this encounter Care Teams Appraisal Coordinator Relationship Specialty Start Date End Date Ken Greer MD [address] [facility] [address] PCP - General 07/07/23 Kiel Powers [facility] 05/31/24 documented as of this encounter
--- OUTSIDE RECORDS SUMMARY | 2024-12-05 11:59 | XMS_ITS | Encounter Summary ---
Author Organization [facility] Address [address] [place] [address] Care Team Providers Care Rigging Helper Name Role Phone Ken Greer MD Primary Care Provider [phone] Kiel Powers Unavailable Unavailable Encounter Details Date Type Department Care Team (Late st Contact Info) Description 08/01/2024 Documentation Visit [facility] [address] [place] [address] Shelley Eden, RD [address] [place] [address] Social History Tobacco Use Types Packs/Day Years Used Date Smoking Tobacco: Every Day Cigarettes 1 26.1 Started: 1998 Smokeless Tobacco: Never Alcohol Use Standard Drinks/Week Comments Yes 0 (1 standard drink = 0.6 oz pur e alcohol) Socially [facility] Utilities Answer Date Recorded In the past 12 months has e [employer], gas, oil, or water [employer] threatened to shut off services in your [...] any time in the past 12 m [facility], were you homeless or living in a jail (including now)? No 05/30/2024 Interpersonal Safety Answer Date Record ed How often does anyone, martin lyons family, hit, punch or physically hurt you? 05/30/2024 How often does anyone, martin lyons family, insult, scream, curse or threaten to hurt you? 05/30/2024 Living Situation Answer Date Recorded What is your living situation today? I have a [facility] place to live 05/30/2024 Think about [...] the past 12 months has th e [employer], gas, oil, or water [employer] threatened to shut off services in your [...] EST Treatment [facility] [place] [address] [place] [id number] Carlota Jin MD 1 [facility], Level [address] [place] [address] 12/08/2024 6:45 EST Treatment [facility] [place] [address] [place], [place] [id number] Carlota Jin MD 1 [facility], [facility] 2 [place] [phone] 12/11/2024 6:45 EST Treatment [facility] [place] [address] [place], [place] [id number] Carlota Jin MD 1 [facility], [facility] 2 [place] [phone] 12/13/2024 6:45 EST Treatment [facility] [place] [address] [place] [address] Carlota Jin MD 1 [facility], [address] [phone] 12/15/2024 6:45 EST Treatment [facility] [place] [address] [place], [place] [id number] Carlota Jin MD 1 [facility], [address] [phone] 12/18/2024 6:45 EST Treatment [facility] [place] [address] [place] [address] Carlota Jin MD 1 [facility], [facility] 2 [place] [phone] 12/20/2024 6:45 EST Treatment [facility] [place] [address] [place], [place] [id number] Carlota Jin MD 1 [facility], [facility] 2 [place] [phone] 12/22/2024 6:45 EST Treatment [facility] [place] [address] [place], [place] [address] Carlota Jin MD 1 [facility], [facility] 2 [place] [phone] 12/25/2024 6:45 EST Treatment [facility] [place] [address] [place], [place] [address] Carlota Jin MD 1 [facility], [facility] 2 [place] [phone] 12/27/2024 6:45 EST Treatment [facility] [place] [address] [place], [place] [id number] Carlota Jin MD 1 [facility], [facility] 2 [place] [phone] 12/29/2024 6:45 EST Treatment [facility] [place] [address] [place], [place] [address] Carlota Jin MD 1 [facility], [facility] 2 [place] [phone] 01/01/2025 6:45 EDT Treatment [facility] [place] [address] [place], [place] [id number] Carlota Jin MD 1 [facility], [facility] 2 [place] [phone] 01/03/2025 6:45 EDT Treatment [facility] [place] [address] [place], [place] [address] Carlota Jin MD 1 [facility], [facility] 2 [place] [phone] 01/05/2025 6:45 EDT Treatment [facility] [place] [address] [place] [address] Carlota Jin MD 1 [facility], [address] [phone] 01/08/2025 6:45 EDT Treatment [facility] [place] [address] [place], [place] [address] Carlota Jin MD 1 [facility], [address] [phone] 01/10/2025 6:45 EDT Treatment [facility] [place] [address] [place], [place] [address] Carlota Jin MD 1 [facility], [address] [phone] 01/12/2025 6:45 EDT Treatment [facility] [place] [address] [place], [place] [id number] Carlota Jin MD 1 [facility], [facility] 2 [place] [phone] 01/15/2025 6:45 EDT Treatment [facility] [place] [address] [place], [place] [address] Carlota Jin MD 1 [facility], [facility] 2 [place] [phone] 01/17/2025 6:45 EDT Treatment [facility] [place] [address] [place], [place] [address] Carlota Jin MD 1 [facility], [facility] 2 [place] [phone] 01/19/2025 6:45 EDT Treatment [facility] [place] [address] [place], [place] [address] Carlota Jin MD 1 [facility], [facility] 2 [place] [phone] 01/22/2025 6:45 EDT Treatment [facility] [place] [address] [place] [address] Carlota Jin MD 1 [facility], [address] [phone] 01/24/2025 6:45 EDT Treatment [facility] [place] [address] [place], [place] [address] Carlota Jin MD 1 [facility], [facility] 2 [place] [phone] 01/26/2025 6:45 EDT Treatment [facility] [place] [address] [place], [place] [address] Carlota Jin MD 1 [facility], [facility] 2 [place] [phone] 01/29/2025 6:45 EDT Treatment [facility] [place] [address] [place], [place] [address] Carlota Jin MD 1 [facility], [facility] [address] [place] [phone] 01/31/2025 6:45 EDT Treatment [facility] [place] [address] [place], [place] [id number] Carlota Jin MD 1 [facility], [facility] 2 [place] [phone] 02/02/2025 6:45 EDT Treatment [facility] [place] [address] [place], [place] [address] Carlota Jin MD 1 [facility], [address] [phone] 02/05/2025 6:45 EDT Treatment [facility] [place] [address] [place], [place] [id number] Carlota Jin MD [address] [phone] 02/07/2025 6:45 EDT Treatment [facility] [place] [address] [place], [place] [id number] Carlota Jin MD [address] [phone] 02/09/2025 6:45 EDT Treatment [facility] [place] [address] [place], [place] [id number] Carlota Jin MD 1 [facility] 2 [place] [phone] 02/12/2025 6:45 EDT Treatment [facility] [place] [address] [place], [place] [id number] Carlota Jin MD 1 [facility], [facility] 2 [place] [phone] 02/14/2025 6:45 EDT Treatment [facility] [place] [address] [place], [place] [id number] Carlota Jin MD 1 [facility], [facility] 2 [place] [phone] 02/16/2025 6:45 EDT Treatment [facility] [place] [address] [place], [place] [address] Carlota Jin MD 1 [facility], [facility] [address] [place] [phone] 02/19/2025 6:45 EDT Treatment [facility] [place] [address] [place], [place] [id number] Carlota Jin MD 1 [facility], [facility] 2 [place] [phone] 02/21/2025 6:45 EDT Treatment [facility] [place] [address] [place], [place] [id number] Carlota Jin MD 1 [facility], [facility] [address] [place] [phone] documented as of this encounter Visit Diagnoses Not on filedocumented in this encounter Care Teams Rigging Helper Relationship Specialty Start Date End Date Ken Greer MD [facility] [place] [address] PCP - General 07/07/23 Kiel Powers Senior Applications Analyst Nephrology 05/31/24 documented as of this encounter
--- OUTSIDE RECORDS SUMMARY | 2024-12-05 11:59 | XMS_ITS | Encounter Summary ---
Author Organization [facility] Address [address] [place] [address] Care Team Providers Care Washer And Capper Machine Operator Name Role Phone Ken Greer MD Primary Care Provider [phone] Kiel Powers Unavailable Unavailable Reason for Visit * Episode Based Medications (Routine) - New Request Specialty Diagnoses / Procedures Referred By Nader gardiner Referred To Contact Diagnoses ESRD (end stage renal disease) ([facility]) Carlota Jin MD [address] [place] [address], [facility] [address] [place] [address] Phone: tel: fax: [facility] [place] [address] [place] [address] Phone: tel: fax: Referral ID Status Reason Start Date Expiration Date V isits Requested Visits Authorized [id number] New Request 03/17/2024 1 1 Encounter Details Date Type Department Care Team (Latest Contact Info) Description 08/04/2024 6:45 EDT Treatment [facility] [address] [place], [place] [id number] Carlota Jin MD [address] [place] [address], [facility] [address] [place] [phone] ESRD (end stage renal disease) ([facility]) (Primary Dx); Hypoalbuminemia; Secondary hyperparathyroidism ([facility]) Social History Tobacco Use Types Packs/Day Years [...] in the past [address] [facility], were you homeless or living in a [...] In the past 12 months has th [employer], gas, oil, or water [employer] threatened to shut off services in your [...] - Temperature - - Respiratory Rate 16 08/04/2024 0634 EDT Oxygen Saturation - - Inhaled Oxygen Concentration - - Weight 80 kg (176 lb 5.9 oz) 08/04/2024 0625 EDT Height - - Body Mass Index 25.31 [...] Flowsheet Note - Marcela Cox RN - 08/04/2024 1341 EDT 08/04/24 1052 Post-Hemodialysis Assessment Total Blood Processed (L) 90.1 Liters On Line Clearance: spKt/V 1.65 spKt/V Dialyzer Clearance Lightly streaked Treatment UFR (ml:kg:hr) 11.88 ml:kg:hr Critline refill Not done Fluid Removed (L) 4.3 L Post-Dialysis Scale Weight 95.3 kg (210 lb 1.6 oz) Wheelchair Weight 19 kg (41 lb 14.2 oz) Prosthesis Weight 0 kg (0 lb) Post-Treatment Weight (kg) 76.3 Treatment Weight Change (kg) 3.7 kg Day [employer] Weight (kg) 76.2 Post Sitting/Lying BP (!) 163/104 Post Sitting/Lying pulse 66 Temp 36.6 ??C [...] Description 12/06/2024 6:45 EST Treatment [facility] [place] [address] [place], [place] [id number] Carlota Jin MD 1 [facility], [address] [phone] 12/08/2024 6:45 EST Treatment [facility] [address] [place], [place] [id number] Carlota Jin MD 1 [facility], [address] [phone] 12/11/2024 6:45 EST Treatment [facility] [place] [address] [place], [place] [id number] Carlota Jin MD [address] [phone] 12/13/2024 6:45 EST Treatment [facility] [address] [place], [place] [id number] Carlota Jin MD 1 [facility], [address] [phone] 12/15/2024 6:45 EST Treatment [facility] [address] [place], [place] [id number] Carlota Jin MD 1 [facility], [address] [phone] 12/18/2024 6:45 EST Treatment [facility] [place] [address] [place], [place] [id number] Carlota Jin MD 1 [facility], [facility] [address] [place] [phone] 12/20/2024 6:45 EST Treatment [facility] [place] [address] [place], [place] [id number] Carlota Jin MD 1 [facility], [facility] [address] [place] [phone] 12/22/2024 6:45 EST Treatment [facility] [place] [address] [place], [place] [id number] Carlota Jin MD 1 [facility], [facility] [address] [place] [phone] 12/25/2024 6:45 EST Treatment [facility] [place] [address] [place], [place] [id number] Carlota Jin MD 1 [facility], [facility] [address] [place] [phone] 12/27/2024 6:45 EST Treatment [facility] [place] [address] [place], [place] [id number] Carlota Jin MD 1 [facility], [facility] [address] [place] [phone] 12/29/2024 6:45 EST Treatment [facility] [place] [address] [place], [place] [id number] Carlota Jin MD 1 [facility] Level [address] [place] [phone] 01/01/2025 6:45 EDT Treatment [facility] [place] [address] [place], [place] [id number] Carlota Jin MD 1 [facility], [facility] [address] [place] [phone] 01/03/2025 6:45 EDT Treatment [facility] [place] [address] [place], [place] [id number] Carlota Jin MD 1 [facility], [facility] [address] [place] [phone] 01/05/2025 6:45 EDT Treatment [facility] [place] [address] [place], [place] [id number] Carlota Jin MD 1 [facility], [facility] [address] [place] [phone] 01/08/2025 6:45 EDT Treatment [facility] [place] [address] [place] [id number] Carlota Jin MD 1 [facility], [facility] [address] [place] [phone] 01/10/2025 6:45 EDT Treatment [facility] [place] [address] [place], [place] [id number] Carlota Jin MD 1 [facility], [facility] [address] [place] [phone] 01/12/2025 6:45 EDT Treatment [facility] [place] [address] [place], [place] [id number] Carlota Jin MD 1 [facility], [facility] [address] [place] [phone] 01/15/2025 6:45 EDT Treatment [facility] [place] [address] [place], [place] [id number] Carlota Jin MD 1 [facility], [facility] [address] [place] [phone] 01/17/2025 6:45 EDT Treatment [facility] [place] [address] [place], [place] [id number] Carlota Jin MD [address] [place] [address], [facility] [address] [place] [phone] 01/19/2025 6:45 EDT Treatment [facility] [place] [address] [place], [place] [id number] Carlota Jin MD [address] [place] [address], [facility] [address] [place] [phone] 01/22/2025 6:45 EDT Treatment [facility] [place] [address] [place], [place] [id number] Carlota Jin MD 1 [facility], [facility] [address] [place] [phone] 01/24/2025 6:45 EDT Treatment [facility] [place] [address] [place], [place] [id number] Carlota Jin MD 1 [facility], [facility] [address] [place] [phone] 01/26/2025 6:45 EDT Treatment [facility] [place] [address] [place], [place] [id number] Carlota Jin MD 1 [facility], [facility] [address] [place] [phone] 01/29/2025 6:45 EDT Treatment [facility] [place] [address] [place], [place] [id number] Carlota Jin MD 1 [facility], [facility] [address] [place] [phone] 01/31/2025 6:45 EDT Treatment [facility] [place] [address] [place], [place] [id number] Carlota Jin MD 1 [facility], [facility] [address] [place] [phone] 02/02/2025 6:45 EDT Treatment [facility] [address] [place], [place] [id number] Carlota Jin MD 1 [facility], [facility] [address] [place] [phone] 02/05/2025 6:45 EDT Treatment [facility] [place] [address] [place], [place] [id number] Carlota Jin MD 1 [facility], [facility] [address] [place] [phone] 02/07/2025 6:45 EDT Treatment [facility] [place] [address] [place], [place] [id number] Carlota Jin MD 1 [facility], [facility] [address] [place] [phone] 02/09/2025 6:45 EDT Treatment [facility] [place] [address] [place], [place] [id number] Carlota Jin MD 1 [facility], [facility] [address] [place] [phone] 02/12/2025 6:45 EDT Treatment [facility] [place] [address] [place], [place] [id number] Carlota Jin MD 1 [facility], [facility] [address] [place] [phone] 02/14/2025 6:45 EDT Treatment [facility] [place] [address] [place], [place] [id number] Carlota Jin MD 1 [facility], [facility] [address] [place] [phone] 02/16/2025 6:45 EDT Treatment [facility] [place] [address] [place], [place] [id number] Carlota Jin MD 1 [facility], [facility] [address] [place] [phone] 02/19/2025 6:45 EDT Treatment [facility] [place] [address] [place] [id number] Carlota Jin MD 1 [facility], Level [address] [place] [phone] 02/21/2025 6:45 EDT Treatment [facility] [place] [address] [place], [place] [id number] Carlota Jin MD 1 [facility] [address] [place] [phone] documented as of this encounter Procedures Procedure Name Priority Date/Time Associated Diagnosis Comments HEMODIALYSIS Routine 08/04/2024 6:34 EDT ESRD (end stage renal disease) ([facility]) documented in this encounter Visit Diagnoses Diagnosis ESRD (end stage renal disease) ([facility])- Primary End stage renal disease Hypoalbuminemia Other disorders of plasma protein metabolism Secondary hyperparathyroidism ([facility]) Secondary hyperparathyroidism (of renal origin) documented in this encounter Administered Medications Inactive Administered Medications - up to 3 most recent administrations Medication Order MAR Action Action Date Dose Rate Site acetaminophen (TYLENOL) tablet 650 mg 650 mg, oral, EVERY 4 HOURS PRN, Starting on Wed08/04/24 at 0634, Until Wed08/04/24 at 1541, Pain, Routine, DialysisIndications:ESRD (end stage renal disease) ([facility]) Given 08/04/2024 9:40 EDT 650 mg calcium carbonate (TUMS) tablet 500 mg (200 mg elemental calcium) 2 Tablet 2 Tablet, oral, ONCE IN DIALYSIS, 1 dose, On Wed08/04/24 at 0700, Routine, DialysisIndications:ESRD (end stage renal disease) ([facility]),Secondary hyperparathyroidism ([facility]) Given 08/04/2024 6:43 EDT 2 Tablets heparin injection 3,000 Units 3,000 Units, intravenous, ONCE IN DIALYSIS, 1 dose, On Wed08/04/24 at 0700, Routine, Dialysis, Now x1 bolus 1500 units to be given at the beginning of dialysis 500 units/hour to be given over the course of dialysis (3000 units total). Stop 1 hour prior to end of treatment. To be administered per Policy [id number].Indications:ESRD (end stage renal disease) ([facility]) Given 08/04/2024 6:50 EDT 3,000 Units LiquaCel liquid protein liquid 30 mL 30 mL, oral, ONCE IN DIALYSIS, 1 dose, On Wed08/04/24 at 0700, Patient's flavor preference: either, Routine, DialysisIndications:ESRD (end stage renal disease) ([facility]),Hypoalbuminemia Given 08/04/2024 6:43 EDT 30 mL documented in this encounter Orders Dialysis Count Last Ordered Date First Orde red Date HEMODIALYSIS 1 08/04/2024 documented in this encounter Care Teams Washer And Capper Machine Operator Relationship Specialty Start Date End Date Ken Greer MD [address] [place] [address] PCP - General 07/07/23 Kiel Powers Qa Automation Engineer Nephrology 05/31/24 documented as of this encounter
--- OUTSIDE RECORDS SUMMARY | 2024-12-05 11:59 | XMS_ITS | Encounter Summary ---
Author Organization [facility] Address [address] [place] [address] Care Team Providers Care Building Illuminating Engineer Name Role Phone Ken Greer MD Primary Care Provider [phone] Kiel Powers Unavailable Unavailable Reason for Visit * Episode Based Medications (Routine) - New Request Specialty Diagnoses / Procedures Referred By Nader gardiner Referred To Contact Diagnoses ESRD (end stage renal disease) ([facility]) Carlota Jin MD [address] [place] [address], [facility] [address] [place] [address] Phone: tel: fax: [facility] [place] [address] [place] [address] Phone: tel: fax: Referral ID Status Reason Start Date Expiration Date V isits Requested Visits Authorized [id number] New Request 03/17/2024 1 1 Encounter Details Date Type Department Care Team (Latest Contact Info) Description 07/31/2024 6:45 EDT Treatment [facility] [address] [place], [place] [id number] Carlota Jin MD [address] [place] [address], [facility] [address] [place] [phone] ESRD (end stage renal disease) ([facility]) (Primary Dx); Secondary hyperparathyroidism (HCC-CMS); Hypoalbuminemia Social History Tobacco Use Types Packs/Day Years Used Date Smoking Tobacco: Every Day Cigarettes 1 26.1 Started: 1998 Smokeless Tobacco: Never Alcohol Use Standard Drinks/Week Comments Yes 0 (1 standard drink = 0.6 oz pur e alcohol) Socially [facility] Utilities Answer Date Recorded In the [...] In the past 12 months has th [employer], gas, oil, or water [employer] threatened to shut off services in your [...] - Temperature - - Respiratory Rate 16 07/31/2024 0626 EDT Oxygen Saturation - - Inhaled Oxygen Concentration - - Weight 78.9 kg (173 lb 15.1 oz) 07/31/2024 0630 EDT Height - - Body Mass Index 24.96 07/20/2024 1359 EDT documented in this encounter [...] encounter Miscellaneous Notes * Flowsheet Note - Marclea Cox RN - 07/31/2024 1353 EDT 07/31/24 1049 Post-Hemodialysis Assessment Total Blood Processed (L) 91.27 Liters On Line Clearance: spKt/V 1.54 spKt/V Dialyzer Clearance Lightly streaked Treatment UFR (ml:kg:hr) 10.31 ml:kg:hr Final Critline Profile (%/hr) -1.05 Final Profile Profile A Critline refill Negative (31.8/31.6) Fluid Removed (L) 3.5 L Post-Dialysis Scale Weight 94.8 kg (208 lb 15.9 oz) Wheelchair Weight 19.1 kg (42 lb 1.7 oz) Prosthesis Weight 0 kg (0 lb) Post-Treatment Weight (kg) 75.7 Treatment Weight Change (kg) 3.2 kg Day Target Weight (kg) 75.9 Post Sitting/Lying BP 170/83 Post Sitting/Lying pulse 65 Temp 36.2 ??C (97.2 ??F) Temp src Temporal Minutes Short -246 Post access assessment AVF/AFG Hemostasis achieved Yes Note held for 10 minutes with blue clamps Orientation Alert and Oriented x3 Yes Time Yes Place Yes Person Yes Cooperative Yes Disoriented No Discharge Ambulation Methods Departs via w/c Wrap up items Patient Response to Treatment Removed 3.5L UF goal without difficulty. Comments pt continues to report extreme headache during the last hr of tx, pt reports little reliefwith tylenol. continued to encourage pt to schedule PCP appt to evaluate headaches. * Addendum Note - Kaye Tillman RN - 07/31/2024 0645 EDTAddended by: KAYE TILLMAN on: 08/01/2024 13:30 Modules accepted: Orders documented in this encounter Plan of Treatment Upcoming Encounters Date Type Department Care Team (Late st Contact Info) Description 12/06/2024 6:45 EST Treatment [facility] [address] [place], [place] [phone] Carlota Jin MD [address] [place] [phone] 12/08/2024 6:45 EST Treatment [facility] [address] [place], [place] [phone] Carlota Jin MD [address] [place] [phone] 12/11/2024 6:45 EST Treatment [facility] [address] [place], [place] [id number] Carlota Jin MD [address] [place] [address] [address] [place] [phone] 12/13/2024 6:45 EST [facility] [address] [place], [place] [phone] Carlota Jin MD [address] [place] [phone] 12/15/2024 6:45 EST Treatment [facility] [place] [address] [place], [place] [phone] Carlota Jin MD 1 [facility], [facility] [address] [place] [phone] 12/18/2024 6:45 EST Treatment [facility] [place] [address] [place], [place] [phone] Carlota Jin MD 1 [facility], [facility] [address] [place] [phone] 12/20/2024 6:45 EST Treatment [facility] [place] [address] [place], [place] [phone] Carlota Jin MD 1 [facility], [facility] [address] [place] [phone] 12/22/2024 6:45 EST Treatment [facility] [place] [address] [place], [place] [phone] Carlota Jin MD 1 [facility], [facility] [address] [place] [phone] 12/25/2024 6:45 EST Treatment [facility] [place] [address] [place], [place] [phone] Carlota Jin MD 1 [facility], [facility] [address] [place] [phone] 12/27/2024 6:45 EST Treatment [facility] [place] [address] [place] [phone] Carlota Jin MD 1 [facility], [facility] [address] [place] [phone] 12/29/2024 6:45 EST Treatment [facility] [place] [address] [place], [place] [phone] Carlota Jin MD 1 [facility], [facility] [address] [place] [phone] 01/01/2025 6:45 EDT Treatment [facility] [place] [address] [place] [address] Carlota Jin MD 1 [facility], [address] [phone] 01/03/2025 6:45 EDT Treatment [facility] [place] [address] [place], [place] [phone] Carlota Jin MD 1 [facility], [address] [phone] 01/05/2025 6:45 EDT Treatment [facility] [place] [address] [place] [phone] Carlota Jin MD 1 [facility], [facility] [address] [place] [phone] 01/08/2025 6:45 EDT Treatment [facility] [place] [address] [place], [place] [phone] Carlota Jin MD 1 [facility], [facility] [address] [place] [phone] 01/10/2025 6:45 EDT Treatment [facility] [place] [address] [place], [place] [phone] Carlota Jin MD 1 [facility], [facility] [address] [place] [phone] 01/12/2025 6:45 EDT Treatment [facility] [place] [address] [place], [place] [phone] Carlota Jin MD 1 [facility], [address] [phone] 01/15/2025 6:45 EDT Treatment [facility] [place] [address] [place], [place] [id number] Carlota Jin MD 1 [facility], [address] [phone] 01/17/2025 6:45 EDT Treatment [facility] [place] [address] [place], [place] [id number] Carlota Jin MD 1 [facility], [facility] [address] [place] [phone] 01/19/2025 6:45 EDT Treatment [facility] [place] [address] [place], [place] [phone] Carlota Jin MD 1 [facility], [facility] [address] [place] [phone] 01/22/2025 6:45 EDT Treatment [facility] [place] [address] [place], [place] [id number] Carlota Jin MD 1 [facility], [address] [phone] 01/24/2025 6:45 EDT Treatment [facility] [place] [address] [place] [id number] Carlota Jin MD 1 [facility], [address] [phone] 01/26/2025 6:45 EDT Treatment [facility] [place] [address] [place], [place] [phone] Carlota Jin MD 1 [facility], [address] [phone] 01/29/2025 6:45 EDT Treatment [facility] [address] [place], [place] [phone] Carlota Jin MD 1 [facility], [address] [phone] 01/31/2025 6:45 EDT Treatment [facility] [place] [address] [place], [place] [phone] Carlota Jin MD 1 [facility], [address] [phone] 02/02/2025 6:45 EDT Treatment [facility] [place] [address] [place], [place] [phone] Carlota Jin MD 1 [facility], [facility] [address] [place] [phone] 02/05/2025 6:45 EDT Treatment [facility] [place] [address] [place], [place] [phone] Carlota Jin MD 1 [facility], [facility] [address] [place] [phone] 02/07/2025 6:45 EDT Treatment [facility] [place] [address] [place], [place] [phone] Carlota Jin MD 1 [facility], [address] [phone] 02/09/2025 6:45 EDT Treatment [facility] [place] [address] [place], [place] [phone] Carlota Jin MD [address] [place] [address], [address] [phone] 02/12/2025 6:45 EDT Treatment [facility] [place] [address] [place], [place] [phone] Carlota Jin MD 1 [facility], [facility] [address] [place] [phone] 02/14/2025 6:45 EDT Treatment [facility] [place] [address] [place], [place] [phone] Carlota Jin MD 1 [facility], [facility] [address] [place] [phone] 02/16/2025 6:45 EDT Treatment [facility] [place] [address] [place], [place] [phone] aCrlota Jin MD 1 [facility], [facility] [address] [place] [phone] 02/19/2025 6:45 EDT Treatment [facility] [place] [address] [place], [place] [phone] Carlota Jin MD 1 [facility], [facility] [address] [place] [phone] 02/21/2025 6:45 EDT Treatment [facility] [place] [address] [place], [place] [phone] Carlota Jin MD 1 [facility], [facility] [address] [place] [phone] documented as of this encounter Procedures Procedure Name Priority Date/Time Associated Diagnosis Comments POSTDIALYSIS BUN WITH URR CALCULATION Routine 07/31/2024 11:10 EDT ESRD (end stage renal disease) ([facility]) TRANSFERRIN SATURATION Routine 07/31/2024 6:32 EDT ESRD (end stage renal disease) ([facility]) DIALYSIS ROUTINE - DIALYSIS ONLY (BUN, K, NA, CL, CO2, SANJEEV, ALB, MG, PHOS, ALKP, AST) Routine 07/31/2024 6:32 EDT ESRD (end stage renal disease) ([facility]) PROFILE IRON STUDIES (INCLUDES IRON, IBC, AND FERRITIN) Routine 07/31/2024 6:32 EDT ESRD (end stage renal disease) ([facility]) PTH INTACT Routine 07/31/2024 6:32 EDT ESRD (end stage renal disease) ([facility]) Secondary hyperparathyroidism ([facility]) FERRITIN Routine 07/31/2024 6:32 EDT ESRD (end stage renal disease) ([facility]) HEMODIALYSIS Routine 07/31/2024 6:26 EDT ESRD (end stage renal disease) ([facility]) documented in this encounter Results * (ABNORMAL) POSTDIALYSIS BUN WITH URR CALCULATION (07/31/2024 11:10 EDT) BUN, Postdialysis 26 10 - 26 mg/dL 07/31/2024 21:53 EDT [facility] Urea Reduction Rate 72.3 Not Established % 07/31/2024 21:53 EDT [facility] Comment: NOTE: Reference range not established for Urea Reduction Rate. BUN 94(H) 10 - 26 mg/dL 07/31/2024 21:53 EDT [facility] Blood VENOUS BLOOD / Unknown Venipuncture / Unknown 07/31/2024 11:10 EDT 07/31/2024 11:10 EDT Skye Gomez FLIGHT HOSTESS CHEMISTRY & BLOOD GAS ORDER FRANSISCO Final Result Performing Organization Address City/[facility]/ZIP Co de Phone Number [facility] [address] [place] [address] * (ABNORMAL) FERRITIN (07/31/2024 6:32 EDT) Ferritin 552(H) 22 - 322 ng/mL 08/01/2024 9:10 EDT [facility] Blood VENOUS BLOOD / Unknown Venipuncture / Unknown 07/31/2024 6:32 EDT 07/31/2024 6:33 EDT Skye Gomez FLIGHT HOSTESS CHEMISTRY & BLOOD GAS ORDER FRANSISCO Final Result Performing Organization Address City/[facility]/ZIP Co de Phone Number [facility] [address] [place] [address] * (ABNORMAL) TRANSFERRIN SATURATION (07/31/2024 6:32 EDT) Iron 89 49 - 181 ??g/dL 07/31/2024 22:02 EDT [facility] Iron Binding Capacity 207(L) 240 - 450 ??g/dL 07/31/2024 22:02 EDT [facility] Transferrin Saturation 43 15 - 45 % 07/31/2024 22:02 EDT [facility] Blood VENOUS BLOOD / Unknown Venipuncture / Unknown 07/31/2024 6:32 EDT 07/31/2024 6:33 EDT Skye Gomez FLIGHT HOSTESS CHEMISTRY & BLOOD GAS ORDER FRANSISCO Final Result Performing Organization Address [facility] de Phone Number [facility] [address] [place] [address] * (ABNORMAL) PTH INTACT (07/31/2024 6:32 EDT) Intact PTH 712(H) 19 - 88 pg/mL 08/01/2024 9:20 EDT [facility] Blood VENOUS BLOOD / Unknown Venipuncture / Unknown 07/31/2024 6:32 EDT 07/31/2024 6:33 EDT Skye Gomez FLIGHT HOSTESS CHEMISTRY & BLOOD GAS ORDER FRANSISCO Final Result Performing Organization Address City/[facility] Co de Phone Number [facility] [address] [place] [address] * (ABNORMAL) DIALYSIS ROUTINE - DIALYSIS ONLY (BUN, K, NA, CL, CO2, SANJEEV, ALB, MG, PHOS, ALKP, AST) (07/31/2024 6:32 EDT) Sodium 137 136 - 145 mmol/L 07/31/2024 21:52 EDT [facility] Potassium 6.6(H) 3.5 - 5.0 mmol/L 07/31/2024 21:52 [facility] Chloride 100 96 - 110 mmol/L 07/31/2024 21:52 [facility] CO2 Total 19(L) 22 - 32 mmol/L 07/31/2024 21:52 [facility] Calcium 8.1(L) 8.5 - 10.5 mg/dL 07/31/2024 21:52 [facility] Albumin 3.1(L) 3.4 - 4.9 g/dL 07/31/2024 21:52 [facility] Phosphorus 10.0(H) 2.5 - 4.5 mg/dL 07/31/2024 21:52 [facility] Calcium Phos Product 81.0 See Note mg/dL 07/31/2024 21:52 [facility] Comment: NOTE: Reference range not established BUN, Predialysis 94(H) 10 - 26 mg/dL 07/31/2024 21:52 [facility] AST 28 15 - 46 U/L 07/31/2024 21:52 [facility] Alkaline Phosphatase 97 38 - 126 U/L 07/31/2024 21:52 [facility] Magnesium 2.1 1.7 - 2.8 mg/dL 07/31/2024 21:52 [facility] Anion Gap 18(H) 5 - 14 mmol/L 07/31/2024 21:52 [facility] Calculated Calcium 8.8(L) 8.9 - 10.5 mg/dL 07/31/2024 21:52 [facility] Blood VENOUS BLOOD / Unknown Venipuncture / Unknown 07/31/2024 6:32 EDT 07/31/2024 6:33 EDT us Skye Gomez NP CHEMISTRY & BLOOD GAS ORDER FRANSISCO Final Result [facility] [address] [place] [address] documented in this encounter Visit Diagnoses Diagnosis ESRD (end stage renal disease) ([facility])- Primary End stage renal disease Secondary hyperparathyroidism ([facility]) Secondary hyperparathyroidism (of renal origin) Hypoalbuminemia Other disorders of plasma protein metabolism documented in this encounter Administered Medications Inactive Administered Medications - up to 3 most recent administrations Medication Order MAR Action Action Date Dose Rate Site acetaminophen (TYLENOL) tablet 650 mg 650 mg, oral, EVERY 4 HOURS PRN, Starting on Wed07/31/24 at 0628, Until Wed07/31/24 at 1553, Pain, Routine, DialysisIndications:ESRD (end stage renal disease) ([facility]) Given 07/31/2024 10:19 EDT 650 mg Given 07/31/2024 6:36 EDT 650 mg calcium carbonate (TUMS) tablet 500 mg (200 mg elemental calcium) 2 Tablet 2 Tablet, oral, ONCE IN DIALYSIS, 1 dose, On Wed07/31/24 at 0645, Routine, DialysisIndications:ESRD (end stage renal disease) ([facility]),Secondary hyperparathyroidism ([facility]) Given 07/31/2024 6:36 EDT 2 Tablets heparin injection 3,000 Units 3,000 Units, intravenous, ONCE IN DIALYSIS, 1 dose, On Wed07/31/24 at 0645, Routine, Dialysis, Now x1 bolus 1500 units to be given at the beginning of dialysis 500 units/hour to be given over the course of dialysis (3000 units total). Stop 1 hour prior to end of treatment. To be administered per Policy [id number].Indications:ESRD (end stage renal disease) ([facility]) Given 07/31/2024 6:45 EDT 3,000 Units LiquaCel liquid protein liquid 30 mL 30 mL, oral, ONCE IN DIALYSIS, 1 dose, On Wed07/31/24 at 0645, Patient's flavor preference: either, RoutineIndications:ESRD (end stage renal disease) ([facility]),Hypoalbuminemia Given 07/31/2024 6:36 EDT 30 mL loperamide (IMODIUM) capsule 4 mg 4 mg, oral, 4 TIMES DAILY PRN, Starting on Wed07/31/24 at 0628, Until Wed07/31/24 at 1553, Diarrhea, Routine Given 07/31/2024 6:36 EDT 4 mg documented in this encounter Orders Dialysis Count Last Ordered Date First Orde red Date HEMODIALYSIS 1 07/31/2024 documented in this encounter Care Teams Building Illuminating Engineer Relationship Specialty Start Date End Date Ken Greer MD [address] [place] [address] PCP - General 07/07/23 Kiel Powers Appraisal Manager Nephrology 05/31/24 documented as of this encounter
--- OUTSIDE RECORDS SUMMARY | 2024-12-05 11:59 | XMS_ITS | Encounter Summary ---
Author Organization [facility] Address [address] [place] [address] Care Team Providers Care Relay Operator Name Role Phone Ken Greer MD Primary Care Provider [phone] Kiel Powers Unavailable Unavailable Reason for Visit * Episode Based Medications (Routine) - New Request Specialty Diagnoses / Procedures Referred By Nader gardiner Referred To Contact Diagnoses ESRD (end stage renal disease) ([facility]) Carlota Jin MD [address] [place] [address], [facility] [address] [place] [address] Phone: tel: fax: [facility] Dialysi - [place] [address] [place] [address] Phone: tel: fax: Referral ID Status Reason Start Date Expiration Date V isits Requested Visits Authorized [id number] New Request 03/17/2024 1 1 Encounter Details Date Type Department Care Team (Latest Contact Info) Description 08/02/2024 6:45 EDT Treatment [facility] Dialysi [facility] [address] [place] [id number] Carlota Jin MD [address] [place] [address], [facility] [address] [place] [address] ESRD (end stage renal disease) ([facility]) (Primary Dx); Encounter for immunization; Hypoalbuminemia; Secondary hyperparathyroidism (HCC-CMS) Social History Tobacco Use Types Packs/Day Years [...] any time in the past 12 m [facility], were you homeless or [...] Date Record ed How often does anyone, inclu ding family [...] Recorded In the past 12 months has [employer], [employer], oil, or water [employer] threatened to shut off services in your [...] - Temperature - - Respiratory Rate 16 08/02/2024 0629 EDT Oxygen Saturation - - Inhaled Oxygen Concentration - - Weight 80 kg (176 lb 5.9 oz) 08/02/2024 0619 EDT Height - - Body Mass Index [...] Flowsheet Note - Marcela Cox RN - 08/02/2024 1111 EDT 08/02/24 1045 Post-Hemodialysis Assessment Total Blood Processed (L) 90.97 Liters On Line Clearance: spKt/V 1.65 spKt/V Dialyzer Clearance Lightly streaked Treatment UFR (ml:kg:hr) 12.6 ml:kg:hr Critline refill Not done Fluid Removed (L) 4.3 L Post-Dialysis Scale Weight 95.1 kg (209 lb 10.5 oz) Wheelchair Weight 19 kg (41 lb 14.2 oz) Prosthesis Weight 0 kg (0 lb) Post-Treatment Weight (kg) 76.1 Treatment Weight Change (kg) 3.9 kg Day Target Weight (kg) 76.2 Post Sitting/Lying BP 172/87 Post Sitting/Lying pulse 65 Temp 36.7 ??C (98.1 ??F) Temp src Temporal Minutes Short -244 Post access assessment Bruit present: Yes Thrill Present AVF/AFG Hemostasis achieved Yes Note Tech held for 5mins then used clamps for an additional 10mins for bleeding Orientation Alert and Oriented x3 Yes Time Yes Place Yes Person Yes Cooperative Yes Disoriented No Discharge Ambulation Methods Departs via w/c Wrap up items Patient Response to Treatment Tolerated tx well. Removed 4.3L UF goal without difficulty. Comments no concerns voiced post tx. * Dialysis Rounding - Skye Gomez NP - 08/02/2024 0645 EDT Dialysis Provider's Routine Assessment Gerson Bruner was seen and examined as appropriate during Dialysis. Pertinent lab results were reviewed. Changes since last visit: None Changes to current prescriptions/orders: None Skye Gomez NP documented in this encounter Plan of Treatment Upcoming Encounters Date Type Department Care Team (Late st Contact Info) Description 12/06/2024 6:45 EST Treatment [facility] Dialysi - [place] [address] [place] [phone] Carlota Jin MD [address] [phone] 12/08/2024 6:45 EST Treatment [facility] Dialysi [facility] [address] [place], [place] [phone] Carlota Jin MD [address] [place] [phone] 12/11/2024 6:45 EST Treatment [facility] Dialysi [facility] [address] [place], [place] [phone] Carlota Jin MD [address] [phone] 12/13/2024 6:45 EST Treatment [facility] Dialysi [facility] [address] [place], [place] [phone] Carlota Jin MD [address] [phone] 12/15/2024 6:45 EST Treatment [facility] Dialysi - [place] [address] [place], [place] [phone] Carlota Jin MD 1 [facility], [facility] [address] [place] [phone] 12/18/2024 6:45 EST Treatment [facility] Dialysi - [place] [address] [place] [address] Carlota Jin MD 1 [facility], [facility] [address] [place] [phone] 12/20/2024 6:45 EST Treatment [facility] Dialysi [facility] [address] [place], [place] [address] [phone] Carlota Jin MD 1 [facility], [facility] [address] [place] [phone] 12/22/2024 6:45 EST Treatment [facility] [address] [place], [place] [phone] Carlota Jin MD 1 [facility], [facility] [address] [place] [phone] 12/25/2024 6:45 EST Treatment [facility] Dialysi [facility] [address] [place], [place] [phone] Carlota Jin MD 1 [facility], [facility] [address] [place] [phone] 12/27/2024 6:45 EST Treatment [facility] Dialysi - [place] [address] [place], [place] [address] Carlota Jin MD 1 [facility], [facility] [address] [place] [phone] 12/29/2024 6:45 EST Treatment [facility] Dialysi - [place] [address] [place], [place] [phone] Carlota Jin MD 1 [facility], [address] [phone] 01/01/2025 6:45 EDT Treatment [facility] - [place] [address] [place], [place] [phone] Carlota Jin MD 1 [facility], [address] [phone] 01/03/2025 6:45 EDT Treatment [facility] - [place] [address] [place], [place] [phone] Carlota Jin MD [address] [phone] 01/05/2025 6:45 EDT Treatment [facility] - [place] [address] [place], [place] [phone] Carlota Jin MD [address] [phone] 01/08/2025 6:45 EDT Treatment [facility] - [place] [address] [place], [place] [phone] Carlota Jin MD 1 [facility], [facility] [address] [place] [phone] 01/10/2025 6:45 EDT Treatment [facility] - [place] [address] [place], [place] [phone] Carlota Jin MD 1 [facility], [facility] [address] [place] [phone] 01/12/2025 6:45 EDT Treatment [facility] - [place] [address] [place], [place] [phone] Carlota Jin MD 1 [facility], [facility] [address] [place] [phone] 01/15/2025 6:45 EDT Treatment [facility] - [place] [address] [place], [place] [phone] Carlota Jin MD 1 [facility], [address] [phone] 01/17/2025 6:45 EDT Treatment [facility] - [place] [address] [place] [address] Carlota Jin MD 1 [facility], [facility] [address] [place] [phone] 01/19/2025 6:45 EDT Treatment [facility] Dial[facility]i [place] [address] [place], [place] [phone] Carlota Jin MD 1 [facility], [facility] [address] [place] [phone] 01/22/2025 6:45 EDT Treatment [facility]ysi - [place] [address] [place], [place] [phone] Carlota Jin MD 1 [facility], [facility] [address] [place] [phone] 01/24/2025 6:45 EDT Treatment [facility] - [place] [address] [place], [place] [phone] Carlota Jin MD 1 [facility], [address] [phone] 01/26/2025 6:45 EDT Treatment [facility]ysi - [place] [address] [place], [place] [phone] Carlota Jin MD 1 [facility], [address] [phone] 01/29/2025 6:45 EDT Treatment [facility] - [place] [address] [place], [place] [phone] Carlota Jin MD 1 [facility], [address] [phone] 01/31/2025 6:45 EDT Treatment [facility] - [place] [address] [place], [place] [phone] Carlota Jin MD 1 [facility], [address] [phone] 02/02/2025 6:45 EDT Treatment [facility] - [place] [address] [place], [place] [phone] Carlota Jin MD 1 [facility], [facility] [address] [place] [phone] 02/05/2025 6:45 EDT Treatment [facility] D[facility]ysi - [place] [address] [place], [place] [address] Carlota Jin MD 1 [facility], [facility] [address] [place] [phone] 02/07/2025 6:45 EDT Treatment [facility] - [place] [address] [place], [place] [phone] Carlota Jin MD 1 [facility], [facility] [address] [place] [phone] 02/09/2025 6:45 EDT Treatment [facility]i - [place] [address] [place], [place] [phone] Carlota Jin MD 1 [facility], [facility] [address] [place] [phone] 02/12/2025 6:45 EDT Treatment [facility] [address] [place], [place] [phone] Carlota Jin MD 1 [facility], [facility] [address] [place] [phone] 02/14/2025 6:45 EDT Treatment [facility] Dialysi [facility] [address] [place] [address] Carlota Jin MD 1 [facility], [facility] [address] [place] [phone] 02/16/2025 6:45 EDT Treatment [facility] Dialysi - [place] [address] [place] [address] Carlota Jin MD 1 [facility], [facility] [address] [place] [phone] 02/19/2025 6:45 EDT Treatment [facility] Dialysi - [place] [address] [place], [place] [phone] Carlota Jin MD 1 [facility], [facility] [address] [place] [phone] 02/21/2025 6:45 EDT Treatment [facility] Dialysi [facility] [address] [place], [place] [phone] Carlota Jin MD 1 [facility], [facility] [address] [place] [phone] documented as of this encounter Procedures Procedure Name Priority Date/Time Associated Diagnosis Comments COMPLETE BLOOD COUNT Routine 08/02/2024 6:33 EDT ESRD (end stage renal disease) ([facility]) HEMODIALYSIS Routine 08/02/2024 6:29 EDT ESRD (end stage renal disease) ([facility]) documented in this encounter Results * (ABNORMAL) COMPLETE BLOOD COUNT (08/02/2024 6:33 EDT) WBC 8.43 4.00 - 10.40 K/cmm 08/02/2024 21:44 EDT [facility] RBC 3.72(L) 4.36 - 5.78 M/cmm 08/02/2024 21:44 EDT [facility] Hemoglobin 10.1(L) 13.8 - 17.3 g/dL 08/02/2024 21:44 EDT [facility] HCT 32.0(L) 39.5 - 50.2 % 08/02/2024 21:44 T [facility] MCV 86 81 - 95 fL 08/02/2024 21:44 [facility] MCH 27.2(L) 27.6 - 33.0 pg 08/02/2024 21:44 [facility] MCHC 31.6(L) 32.8 - 36.4 g/dL 08/02/2024 21:44 [facility] RDW-CV 17.4(H) <14.2 % 08/02/2024 21:44 [facility] RDW-SD 55.8(H) <46.0 fl 08/02/2024 21:44 [facility] PLT 190 141 - 377 K/cmm 08/02/2024 21:44 [facility] MPV 11.5 9.5 - 12.7 fL 08/02/2024 21:44 [facility] Blood VENOUS BLOOD / Unknown Venipuncture / Unknown 08/02/2024 6:33 EDT 08/02/2024 6:33 EDT us Carlota Jin MD HEMATOLOGY & PF4 ORDERABL ES Final Result [facility] [address] [place] [address] documented in this encounter Visit Diagnoses Diagnosis ESRD (end stage renal disease) ([facility])- Primary End stage renal disease Encounter for immunization Need for other specified prophylactic vaccination against single bacterial disease Hypoalbuminemia Other disorders of plasma protein metabolism Secondary hyperparathyroidism ([facility]) Secondary hyperparathyroidism (of renal origin) documented in this encounter Administered Medications Inactive Administered Medications - up to 3 most recent administrations Medication Order MAR Action Action Date Dose Rate Site acetaminophen (TYLENOL) tablet 650 mg 650 mg, oral, EVERY 4 HOURS PRN, Starting on Wed08/02/24 at 1015, Until Wed08/02/24 at 1311, Pain, Routine, DialysisIndications:ESRD (end stage renal disease) ([facility]) Given 08/02/2024 10:15 EDT 650 mg calcium carbonate (TUMS) tablet 500 mg (200 mg elemental calcium) 2 Tablet 2 Tablet, oral, ONCE IN DIALYSIS, 1 dose, On Wed08/02/24 at 0645, Routine, DialysisIndications:ESRD (end stage renal disease) ([facility]),Secondary hyperparathyroidism ([facility]) Given 08/02/2024 7:19 EDT 2 Tablets heparin injection 3,000 Units 3,000 Units, intravenous, ONCE IN DIALYSIS, 1 dose, On Wed08/02/24 at 0645, Routine, Dialysis, Now x1 bolus 1500 units to be given at the beginning of dialysis 500 units/hour to be given over the course of dialysis (3000 units total). Stop 1 hour prior to end of treatment. To be administered per Policy [id number].Indications:ESRD (end stage renal disease) ([facility]) Given 08/02/2024 7:19 EDT 3,000 Units LiquaCel liquid protein liquid 30 mL 30 mL, oral, ONCE IN DIALYSIS, 1 dose, On Wed08/02/24 at 0645, Patient's flavor preference: either, RoutineIndications:ESRD (end stage renal disease) ([facility]),Hypoalbuminemia Given 08/02/2024 7:19 EDT 30 mL documented in this encounter Orders Dialysis Count Last Ordered Date First Orde red Date HEMODIALYSIS 1 08/02/2024 documented in this encounter Care Teams Relay Operator Relationship Specialty Start Date End Date Ken Greer [place] [address] PCP - General 07/07/23 Kiel Powers Supervisor [employer] Nephrology 05/31/24 documented as of this encounter
--- OUTSIDE RECORDS SUMMARY | 2024-12-05 11:59 | XMS_ITS | Encounter Summary ---
Author Organization [facility] Address [address] [place] [address] Care Team Providers Care Cabbage Salter Name Role Phone Ken Greer MD Primary Care Provider [phone] Kiel Powers Unavailable Unavailable Reason for Visit * Reason Comments Transplant Evaluation Encounter Details Date Type Department Care Team (Late st Contact Info) Description 07/20/2024 14:00 EDT Office Visit [facility] Transplant - [address] [id number] Juan Cleveland MD [address] [place] [address], 4th [place] [address] Pre-transplant evaluation for kidney transplant (Primary Dx) Social History Tobacco Use Types Packs/Day Years Used Date Smoking Tobacco: Every Day Cigarettes 1 26.1 Started: 1998 Smokeless Tobacco: Never Alcohol Use Standard Drinks/Week Comments Yes 0 (1 standard drink = 0.6 oz pur e alcohol) Socially [facility] Utilities Answer Date Recorded [...] in the past 12 m [facility], were you homeless or living in a intermediate (including now)? No 05/30/2024 Interpersonal Safety Answer Date Record ed How often does anyone, martin lyons family, hit, punch or physically hurt you? 05/30/2024 How often does anyone, martin lyons family, insult, scream, curse or threaten to hurt you? 05/30/2024 Living Situation Answer Date Recorded What is your living situation today? I have a [facility] to live 05/30/[address] you li ve. Do you have problems with any of the following? None of the above 05/30/2024 Interpersonal Safety Answer Date Record ed How often does anyone, martin lyons family and friends, physically hurt you? Never 05/30/2024 How often does anyone, christineu eloy family and friends, insult or talk down to you? Never 05/30/2024 How often does anyone, inclu ding family and friends, threaten you with harm? [...] the past 12 months has th e Publicate, gas, oil, or water company threatened to [...] EDT Pulse 70 07/20/2024 1359 EDT Temperature - - Respiratory Rate - - Oxygen Saturation - - Inhaled Oxygen Concentration - - Weight 77.7 kg (171 lb 4.8 oz) 07/20/2024 1359 E DT Height 177.8 cm (5' 10) 07/20/2024 1359 EDT Body Mass Index 24.58 07/20/2024 1359 EDT [...] documented in this encounter Progress Notes * Juan Cleveland MD - 07/20/2024 1400 EDT Images from the original note were not included. Subjective: Patient ID: Gerson Bruner is an 58 y.o. male. Chief Complaint Patient presents with Transplant Evaluation HPI Gerson Bruner is a 58 y.o. male with a history of end-stage renal disease secondary to Diabetes who comes forward for evaluation for kidney transplantation. He receives in center hemodialysis. Gerson does not have uremic symptoms and overall is doing relatively well. Gerson specifically has no history of pericarditis or pleuritis. He has not suffered any mental status changes associated with uremia. He has not experienced significant bleeding diathesis attributable to uremia-induced platelet dysfunction. He does not have a persistent metabolic disturbance refrac tory to medical management (hyperkalemia, hyperphosphatemia, hyper-/hypo-calcemia, metabolic acidosis). He has not developed fluid overload refractory to medical management, or hypertension not responsive to antihypertensives. He reports persistent nausea and/or vomiting and does not have evidence of malnutrition. His history is not remarkable for heart disease. Overall, he feels well.. He had a bilateral BKA. Right Femoral artery required angioplasty and stent. The left side amputation. 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 associated with type 2diabetes mellitus ([facility]) ESRD (end stage renal disease) ([facility]) Primary hypertension [I10] Hearing loss Herniation of lumbar intervertebral disc with radiculopathy Hyperlipidemia Proteinuria Right sided numbness Secondary hyperparathyroidism ([facility]) TIA (transient ischemic attack) Type II or unspecified type diabetes mellitus with neurological manifestations, uncontrolled(250.62) Encounter for immunization Hypoalbuminemia Anemia of chronic renal failure Abnormal albumin Cellulitis and abscess of foot, except toes Encounter for therapeutic drug monitoring Diabetic foot infection ([facility]) [E11.628, L08.9] COVID Type 2 diabetes mellitus with chronic kidney disease on chronic dialysis, with long-term current use of insulin ([facility]) [E11.22, N18.6, Z99.2, Z79.4] Anemia of chronic renal failure, stage 5 ([facility]) [N18.5, D63.1] ESRD on hemodialysis ([facility]) Atrial fibrillation and flutter ([facility]) Anemia in chronic kidney disease Anxiety and depression GERD (gastroesophageal reflux disease) Nicotine dependence, cigarettes, uncomplicated Non-healing open wound of heel Olecranon bursitis, right elbow Osteoarthrosis Peripheral neuropathy Retinopathy Sciatica Smoker Type 2 diabetes mellitus with diabetic neuropathy, unspecified ([facility]) Secondary hyperparathyroidism of renal origin ([facility]) Diabetes mellitus ([facility]) Past Medical History: Diagnosis Date Asthma Mild Diabetes mellitus ([facility]) DM2 Hyperlipidemia Hypertension Stage 3 chronic kidney disease ([facility]) Unsteady gait when walking Past Surgical History: Procedure Laterality Date APPENDECTOMY BACK SURGERY BELOW KNEE AMPUTATION Left 02/21/2024 CHOLECYSTECTOMY DIALYSIS FISTULA CREATION Left SHOULDER SURGERY Family History Problem Relation Age of Onset Hypertension Maternal Grandmother Hypertension Maternal Grandfather Glaucoma Neg Hx Cataract Neg Hx Macular Degeneration Neg Hx Retinal Detachment Neg Hx Social Social History Tobacco Use Smoking status: Every Day Current packs/day: 1.00 Average packs/day: 1 pack/day for 25.7 years (25.7 ttl pk-yrs) Types: Cigarettes Start date: 1998 Smokeless tobacco: Never Vaping Use Vaping status: Never Used Substance Use Topics Alcohol use: Yes Comment: Socially Drug use: Yes Types: Marijuana Current Outpatient Medications on File Prior to Visit Medication Sig Dispense Refill acetaminophen (TYLENOL) 325 mg tablet Take 2 Tablets by mouth every 6 hours. (Patient taking differently: Take 500 mg by mouth every 6 hours. 2 po q6hrs) 0 albuterol 90 mcg/actuation HFA aerosol inhaler inhaler Inhale 2 Puffs as directed every 4 hours. amLODIPine (NORVASC) 10 mg tablet Take 1 Tablet by mouth daily. apixaban (ELIQUIS) 5 mg tablet Take 1 Tablet by mouth 2 times daily. aspirin chewable 81 mg tablet Take 1 Tablet by mouth daily. atorvastatin (LIPITOR) 40 mg tablet Take 1 Tablet by mouth daily. calcium carbonate (TUMS) 200 mg calcium (500 mg) tablet,chewable Take 1 Tablet by mouth 3 times daily with meals. carvediloL (COREG) 12.5 mg tablet Take 1 Tablet by mouth 2 times daily. cholecalciferol, Vitamin D3, 25 mcg (1,000 unit) tablet Take 2 Tablets by mouth. dilTIAZem (CARDIZEM CD) 120 mg capsule Take 1 Capsule by mouth daily. 30 Capsule 0 DULoxetine (CYMBALTA) 20 mg delayed release capsule Take 1 Capsule by mouth 2 times daily. HYDROmorphone (DILAUDID) 2 mg tablet Take 2 Tablets by mouth every 4 hours as needed. (Patient not taking: Reported on 07/05/2024) insulin aspart U-100 (NOVOLOG FLEXPEN) 100 unit/mL (3 mL) injectable pen Inject into the skin 3 times daily with meals. Per sliding scale insulin glargine 100 unit/mL (3 mL) injection pen Inject 23 Units into the skin at bedtime. insulin lispro (HUMALOG) 100 unit/mL vial Inject into the skin 3 times daily before meals. 0-8 units subcutaneous q4hrs (Patient not taking: Reported on 07/05/2024) insulin pen needles 32G x 532 Brand: ID8-Mobile Ultra Fine Anny. ISS TID and levemir once daily 100 Each 11 pantoprazole (PROTONIX) 40 mg tablet Take 1 Tablet by mouth daily. polyethylene glycol 3350 (MIRALAX) 17 gram packet Take 17 g by mouth 2 times daily. (Patient not taking: Reported on 07/20/2024) pregabalin (LYRICA) 100 mg capsule Take 1 Capsule by mouth 2 times daily. 1 tab in the morning, 2 tabs at night senna-docusate (SENNA PLUS) 8.6-50 mg per tablet Take 1 Tablet by mouth daily. (Patient not taking:Reported on 07/20/2024) sevelamer carbonate (RENVELA) 800 mg tablet Take 3 Tablets by mouth 3 times daily with meals. 810 Tablet 3 sodium polystyrene (KAYEXALATE) powder Take 15 g by mouth SEE ADMIN INSTRUCTIONS. Take 15 grams in water once daily on non dialysis days 453.6 g 2 tiZANidine (ZANAFLEX) 4 mg tablet Take 1 Tablet by mouth every 8 hours as needed. No current facility-administered medications on file prior to visit. Allergies Allergen Reactions Gabapentin Swelling Other Reaction(s): ANKLE EDEMA Pregabalin Other reaction(s): Unsure Sertraline Other reaction(s): Unsure Clindamycin Hives and Swelling Review of Systems Constitutional: Negative for chills, diaphoresis, fever, malaise/fatigue and weight loss. HENT: Negative. Eyes: Negative. Respiratory: Negative. Cardiovascular: Negative. Gastrointestinal: Negative. Genitourinary: Negative. Musculoskeletal: Negative. Skin: Negative. Neurological: Negative. Endo/Heme/Allergies: Negative. Psychiatric/Behavioral: Negative. - See HPI Objective: BP (!) 197/88 (BP Cuff Location: Right arm, BP Patient Position: Sitting, BP Cuff Sizes: Adult, long) Pulse 70 Ht 177.8 cm (70) Wt 77.7 kg (171 lb 4.8 oz) BMI 24.58 kg/m?? Physical Exam Vitals and nursing note reviewed. Constitutional: Appearance: He is well-developed and well-nourished. HENT: Nose: Nose normal. Mouth/Throat: Mouth: Mucous membranes are moist. Dentition: Normal. Pharynx: Oropharynx is clear. Eyes: Extraocular Movements: EOM normal. Conjunctiva/sclera: Conjunctivae normal. Pupils: Pupils are equal, round, and reactive to light. Cardiovascular: Rate and Rhythm: Normal rate and regular rhythm. Pulses: Popliteal pulses are 0 on the right side and 1+ on the left side. Heart sounds: Normal heart sounds. Comments: Left amputation area showed very slow capillary refill. Pulmonary: Effort: Pulmonary effort is normal. Breath sounds: Normal breath sounds. Abdominal: General: Bowel sounds are normal. Palpations: Abdomen is soft. Musculoskeletal: General: Normal range of motion. Cervical back: Normal range of motion and neck supple. Skin: General: Skin is warm and dry. Neurological: Mental Status: He is alert and oriented to person, place, and time. Deep Tendon Reflexes: Reflexes are normal and symmetric. Psychiatric: Mood and Affect: Mood and affect normal. Behavior: Behavior normal. Thought Content: Thought content normal. Judgment: Judgment normal. Assessment: Statement: Gerson Bruner is a 58 y.o. male with a history of end-stage renal disease secondary to Diabetes. Overall, he is not a transplant candidate from a surgical standpoint. We had a long discussion of the procedure. We would start with a right or left lower quadrant incision. The goal is to expose the artery bringing blood to your leg and the vein draining blood from your leg. These are the vessels we will hook your new kidney into. We discussed risks specific to the transplant which include poor initial function requiring dialysis, urine leak, and lymph leak. We discussed risks associated with bleeding which include the need for blood transfusion and infectious risks associated with transfusion. After the procedure, you will wake up with: 1. Multiple IVs and monitoring catheters, placed for monitoring blood pressure and oxygen levels.. 2. You may have an nasogastric tube (nose to stomach) to decompress fluid from your stomach to prevent aspiration (fluid backing up into your wind pipe). 3. You may have a drain in your abdomen to drain possible urine leak or lymph leak. 4. There will be a quiñones catheter in your bladder; this will generally come out on post operative day four. Plan: Gerson Bruner is a 58 y.o. male with a history of end-stage renal disease secondary to Diabetes. Overall, he is not a transplant candidate from a surgical standpoint. We have discussed the risks associated with surgery which include but are not limited to infection,bleeding, injury to surrounding organs, pneumonia, blood clot formation, wound complications and hernia formation. There are risks associated with general anesthesia and the need for blood transfusion and risks of blood products if a transfusion is necessary. Additional surgical risks include the possible need for long-term ICU care and associated risks which include, but are not limited to heartand lung complications requiring ventilator support for your lungs and medical support for your heart with possible need for tracheostomy, possible need for feeding tube, cardiovascular complicationssuch as heart attacks, stroke, multi-organ failure and . A standard post-surgical course may include a brief routine stay in the ICU for immediate post operative monitoring. You will have a routine postoperative ultrasound after surgery and day one after which patients are commonly moved to the hospital [facility]. A routine hospital course may last seven to ten days. It is not unusual for patients to require dialysis while we wait for the kidney to wake-up. Patients may require a hospital readmission for a variety of reasons to include unexpected changein kidney function, blood pressure or blood sugar evaluation and or some change in your well-being. Risks associated with transplantation include transmitted infectious disease from the kidney, kidney non-function, kidney dysfunction, and kidney loss with potential need for re-transplantation. Risks associated with immunosuppression involve short and long-term risks. Short-term risks includemetabolic changes such as diabetes, electrolyte abnormalities, hypertension, risk of infections, neurologic complications, and healing complications. Long-term risks, include infectious complications and risks of malignancy. Immunosuppression increases the relative risk of developing any cancer. We discussed different donor types including the criteria for donor allocation. All donor organs are not alike. While the majority of donor organs function well, some have a higher risk of poor function. Because there is a serious shortage of donor kidneys and the number of people waiting for a kidney transplant increases every year, we make an effort to utilize every possible organ with a good prospect of function. Kidneys are allocated based on donor related and recipient related criteria and OPTN policy. The policy identifies how kidneys are distributed for transplantation to all candidates while ensuring recipient???s get the greatest possible survival benefit from a transplant. The policy also shares hard-to- place kidneys over a wide geographic area to increase use of these kidneys. Finally, this policyprovides access to candidates who are hard to match with most donors and have traditionally waited longer than average for a transplant. A number of clinical factors are included in a formula that is used to predict the lifespan of the kidney. This is referred to as the Kidney Donor Profile Index (KDPI). A number of clinical factors are also used in a formula to predict the lifespan of the recipient. This is referred to as the Estimated Post Transplant Survival (EPTS). Every candidate on the kidney waiting list after turning 18 years old receives an Estimated Post Transplant Survival (EPTS) score. The EPTS is the expected post-transplant survival of a given recipient. The KDPI and EPTS are matched in organ allocation with the objective of matching the organ and recipient lifespan. High KDPI donors (KDPI of >85%) include older donors and donors who may have the following medical issues: The donor from a stroke. The donor had a medical history of high blood pressure. The donor???s most recent creatinine was 1.5 mg/dL or greater (creatinine is a measurement of how well the kidney works with normal measurements of 0.6mg/dL to 1.2 mg/dL). Due to the donor???s older age and the risk factors listed above, kidneys from these donors may notfunction as effectively or as long as kidneys from other donors. Prior to receiving an offer for a kidney with a KDPI score greater than 85%, we must obtain written, informed consent from you indicating you are willing to receive offers for kidneys in this category. While kidneys from KDPI>85% are at risk of poor function, not all kidneys from this category are poor kidneys and some are viablefor transplantation. You must sign a consent to be considered for KDPI >85% kidney offers. Other types of donors include donors after cardiac (DCD). These donors have sufferedan irreversible brain injury from which they will never recover but cannot, technically, be declared brain . Some families wish to fulfill the ???gift of life?? their loved ones may have expressed before their injury. In these instances, they may donate their organs for transplantation once their heart has stopped beating; these are viable organs for transplantation and are referred to as DCD or donors after cardiac . Another source of viable organs are designated by the [place] Public Health Service as organs from donors with risk factors for blood-borne disease transmission. Donors who meet the following criteria within 30 days prior to organ procurement include the following: The donor had sex (i.e., any method of sexual contact, including vaginal, anal and oral) with a person known or suspected to have HIV??, HBV??, or HCV?? infection. The donor was a man who has had sex with another man. The donor had sex in exchange for money or drugs. The donor had sex with a person who had sex in exchange for money or drugs. The donor injected drugs for a non-medical reasons. The donor had sex with a person who injected drugs for a non-medical reason. The donor had been incarcerated (confinement in care home, senior care, or a juvenile correctional facility for more than 72 consecutive hours. The donor was a child born to a mother with HIV, HBV or HCV infection. The donor was a child who has been breastfed by a mother with HIV infection. The donor had unknown medical or social history. These donors account for ~ 10 % of donors and effectively expand the donor pool. DNA testing, also referred to as nucleic acid testing (VARGHESE), is performed on all donors and is believed to increase the safety margin. While we cannot guarantee a zero risk of transmission, it is important to understand that review of the United Network for Organ Sharing (UNOS) database has found these organs to be a safe and viable alternative for transplantation. Pediatric en-bloc kidneys are also a viable means of renal replacement therapy. In these cases, we accept and transplant two pediatric kidneys into one adult and the results are very good. In a similar fashion, we will accept two KDPI > 85% kidneys and transplant both into one adult to improve the outcomes over transplanting a single KDPI >85%; this is referred to as sequential transplants. Before we accept any of these possible kidneys for transplantation, we carefully evaluate the likelihood of good function and only accept organs we believe will serve you well. In every case, we willdiscuss the type of organ donor we have been offered for your potential transplant and our estimateof the outcome. We will discuss his case in committee. We will discuss the cardiac workup and other factors germaneto her candidacy for transplantation. He would be notified after our meeting as to the decision to proceed with listing or if any further testing would be required. Alternatively, he would be notified if he were not listable and would be provided the reason(s) for the decision. (Z01.818) Pre-transplant evaluation for kidney transplant (primary encounter diagnosis) Juan Cleveland MD No orders of the defined types were placed in this encounter. documented in this encounter Plan of Treatment Upcoming Encounters Date Type Department Care Team (Late st Contact Info) Description 12/06/2024 6:45 EST Treatment [facility] Dialysi - [place] [address] [place], [place] [id number] Carlota Jin MD [address] [place] [address], [facility] [address] [place] [address] 12/08/2024 6:45 EST Treatment [facility] Dialysi - [place] [address] [place] [id number] Carlota Jin MD [address] [place] [address] [address] [place] [address] 12/11/2024 6:45 EST Treatment [facility] D[facility]ysi - [place] [address] [place], [place] [id number] Carlota Jin MD 1 [facility], [facility] [address] [place] [phone] 12/13/2024 6:45 EST Treatment [facility] - [place] [address] [place], [place] [id number] Carlota Jin MD [facility], [facility] [address] [place] [phone] 12/15/2024 6:45 EST Treatment [facility] - [place] [address] [place], [place] [id number] Carlota Jin MD 1 [facility], [facility] [address] [place] [phone] 12/18/2024 6:45 EST Treatment [facility]ysi - [place] [address] [place] [address] Carlota Jin MD 1 [facility], [facility] [address] [place] [phone] 12/20/2024 6:45 EST Treatment [facility] - [place] [address] [place], [place] [id number] Carlota Jin MD 1 [facility], [facility] [address] [place] [phone] 12/22/2024 6:45 EST Treatment [facility]ysi - [place] [address] [place], [place] [id number] Carlota Jin MD 1 [facility], [facility] [address] [place] [phone] 12/25/2024 6:45 EST Treatment [facility] D[facility]ysi - [place] [address] [place], [place] [id number] Carlota Jin MD 1 [facility], [facility] [address] [place] [phone] 12/27/2024 6:45 EST Treatment [facility] - [place] [address] [place], [place] [id number] Carlota Jin MD 1 [facility], [facility] [address] [place] [phone] 12/29/2024 6:45 EST Treatment [facility] - [place] [address] [place] [address] Carlota Jin MD 1 [facility], [facility] [address] [place] [phone] 01/01/2025 6:45 EDT Treatment [facility] D[facility]ys[facility] - [place] [address] [place], [place] [id number] Carlota Jin MD 1 [facility], [facility] [address] [place] [phone] 01/03/2025 6:45 EDT Treatment [facility] [place] [address] [place], [place] [id number] Carlota Jin MD 1 [facility], [facility] [address] [place] [phone] 01/05/2025 6:45 EDT Treatment [facility] Dialysi [facility] [address] [place], [place] [id number] Carlota Jin MD [facility], [facility] [address] [place] [phone] 01/08/2025 6:45 EDT Treatment [facility] Dialysi - [place] [address] [place], [place] [id number] Carlota Jin MD [facility], [facility] [address] [place] [phone] 01/10/2025 6:45 EDT Treatment [facility] Dialysi - [place] [address] [place], [place] [id number] Carlota Jin MD 1 [facility], [facility] [address] [place] [phone] 01/12/2025 6:45 EDT Treatment [facility] [place] [address] [place], [place] [id number] Carlota Jin MD 1 [facility], [facility] 2 [place] [phone] 01/15/2025 6:45 EDT Treatment [facility] [place] [address] [place], [place] [phone] Carlota Jin MD 1 [facility], [facility] 2 [place] [phone] 01/17/2025 6:45 EDT Treatment [facility] [place] [address] [place], [place] [phone] Carlota Jin MD 1 [facility] 2 [place] [phone] 01/19/2025 6:45 EDT Treatment [facility] [place] [address] [place], [place] [phone] Carlota Jin MD 1 [facility], [facility] [address] [place] [phone] 01/22/2025 6:45 EDT Treatment [facility] [place] [address] [place], [place] [phone] Carlota Jin MD 1 [facility], [facility] [address] [place] [phone] 01/24/2025 6:45 EDT Treatment [facility] [place] [address] [place], [place] [id number] Carlota Jin MD 1 [facility], [facility] 2 [place] [phone] 01/26/2025 6:45 EDT Treatment [facility] [place] [address] [place], [place] [phone] Carlota Jin MD 1 [facility], [facility] [address] [place] [phone] 01/29/2025 6:45 EDT Treatment [facility] [place] [address] [place], [place] [phone] Carlota Jin MD 1 [facility], [facility] 2 [place] [phone] 01/31/2025 6:45 EDT Treatment [facility] [place] [address] [place], [place] [address] Carlota Jin MD 1 [facility], [facility] [address] [place] [phone] 02/02/2025 6:45 EDT Treatment [facility] [place] [address] [place], [place] [address] [phone] Carlota Jin MD 1 [facility], [facility] [address] [place] [phone] 02/05/2025 6:45 EDT Treatment [facility] [place] [address] [place], [place] [address] Carlota Jin MD 1 [facility], [address] [phone] 02/07/2025 6:45 EDT Treatment [facility] [place] [address] [place], [place] [phone] Carlota Jin MD 1 [facility], [address] [phone] 02/09/2025 6:45 EDT Treatment [facility] [place] [address] [place], [place] [id number] Carlota Jin MD 1 [facility], [address] [phone] 02/12/2025 6:45 EDT Treatment [facility] [place] [address] [place], [place] [phone] Carlota Jin MD 1 [facility], [facility] 2 [place] [phone] 02/14/2025 6:45 EDT Treatment [facility] [place] [address] [place], [place] [phone] Carlota Jin MD [address] [place] [phone] 02/16/2025 6:45 EDT Treatment [facility] [place] [address] [place], [place] [phone] Carlota Jin MD [address] [place] [phone] 02/19/2025 6:45 EDT Treatment [facility] [place] [address] [place] [address] Carlota Jin MD [address] [place] [phone] 02/21/2025 6:45 EDT Treatment [facility] [place] [address] [place], [place] [phone] Carlota Jin MD [address] [place] [phone] documented as of this encounter Visit Diagnoses Diagnosis Pre-transplant evaluation for kidney transplant- Primary Other specified pre-operative examination documented in this encounter Care Teams Cabbage Salter Relationship Specialty Start Date End Date Ken Greer [place] [address] PCP - General 07/07/23 Kiel Powers Laboratory Mechanical Technician Nephrology 05/31/24 documented as of this encounter
--- OUTSIDE RECORDS SUMMARY | 2024-12-05 11:59 | XMS_ITS | Encounter Summary ---
Author Organization [facility] Address [address] [place] [address] Care Team Providers Care Reforestation Worker Name Role Phone Ken Greer MD Primary Care Provider [phone] Kiel Powers Unavailable Unavailable Reason for Visit * Episode Based Medications (Routine) - New Request Specialty Diagnoses / Procedures Referred By Nader gardiner Referred To Contact Diagnoses ESRD (end stage renal disease) ([facility]) Carlota Jin MD [address] [place] [address] 2 [place] [address] Phone: tel: fax: [facility] [place] [address] [place] [address] Phone: tel: fax: Referral ID Status Reason Start Date Expiration Date V isits Requested Visits Authorized [id number] New Request 03/17/2024 1 1 Encounter Details Date Type Department Care Team (Latest Contact Info) Description 07/26/2024 6:45 EDT Treatment [facility] [address] [place], [place] [phone] Carlota Jin MD [address] [place] [address], [facility] 2 [place] [phone] ESRD (end stage renal disease) ([facility]) (Primary Dx); Hypoalbuminemia; Secondary hyperparathyroidism ([facility]) Social History Tobacco Use Types Packs/Day Years Used Date Smoking Tobacco: Every Day Cigarettes 1 26.1 Started: 1998 Smokeless Tobacco: Never Alcohol Use Standard Drinks/Week Comments Yes 0 (1 standard drink = 0.6 oz pur e alcohol) Socially [facility] Utilities Answer Date Recorded In the [...] the past 12 months has th e [employer], gas, oil, or water [employer] threatened to shut off services in your [...] - Temperature - - Respiratory Rate 16 07/26/2024 0626 EDT Oxygen Saturation - - Inhaled Oxygen Concentration - - Weight 80.1 kg (176 lb 9.4 oz) 07/26/2024 0627 E DT Height - - Body Mass Index 25.34 07/20/2024 1359 EDT documented in this encounter [...] Flowsheet Note - Marcela Cox RN - 07/26/2024 1156 EDT 07/26/24 1015 Post-Hemodialysis Assessment Total Blood Processed (L) 81.11 Liters On Line Clearance: spKt/V 1.36 spKt/V Dialyzer Clearance Lightly streaked Treatment UFR (ml:kg:hr) 11.94 ml:kg:hr Final Critline Profile (%/hr) -0.28 Final Profile Profile A Critline refill Not done Fluid Removed (L) 3.61 L Post-Dialysis Scale Weight 95.8 kg (211 lb 3.2 oz) Wheelchair Weight 19 kg (41 lb 14.2 oz) Prosthesis Weight 0 kg (0 lb) Post-Treatment Weight (kg) 76.8 Treatment Weight Change (kg) 3.3 kg Day Target Weight (kg) 76.3 Post Sitting/Lying BP 156/80 Post Sitting/Lying pulse 62 Temp 36.2 ??C (97.2 ??F) Temp src Temporal Minutes Short -216 Post access assessment Bruit present: Yes Thrill Present AVF/AFG Hemostasis achieved Yes Note Patient held for 10mins with blue clamps- without any issues Orientation Alert and Oriented x3 Yes Time Yes Place Yes Person Yes Cooperative Yes Disoriented No Discharge Ambulation Methods Departs via w/c Wrap up items Patient Response to Treatment Removed 3.6L out of original 4.3L UF goal, unable to remove full goalas tx ended 25 min early. Pt was c/o severe headache, and nausea. Pt very diaphoretic. Some improvement post rinseback. Blood cultures drawn per FOURDRINIER TENDER and pt calling PCP for visit to discuss. documented in this encounter Plan of Treatment Upcoming Encounters Date Type Department Care Team (Late st Contact Info) Description 12/06/2024 6:45 EST Treatment [facility] [place] [address] [place], [place] [phone] Carlota Jin MD [address] [place] [phone] 12/08/2024 6:45 EST Treatment [facility] [address] [place], [place] [phone] Carlota Jin MD [address] [place] [phone] 12/11/2024 6:45 EST Treatment [facility] [address] [place], [place] [phone] Carlota Jin MD [address] [place] [phone] 12/13/2024 6:45 EST Treatment [facility] [address] [place], [place] [phone] Carlota Jin MD [address] [place] [phone] 12/15/2024 6:45 EST Treatment [facility] [address] [place], [place] [phone] Carlota Jin MD 1 [facility], [facility] 2 [place] [phone] 12/18/2024 6:45 EST Treatment [facility] [place] [address] [place] [address] Carlota Jin MD 1 [facility], [facility] 2 [place] [phone] 12/20/2024 6:45 EST Treatment [facility] [place] [address] [place] [address] Carlota Jin MD 1 [facility], [facility] 2 [place] [phone] 12/22/2024 6:45 EST Treatment [facility] [place] [address] [place] [address] Carlota Jin MD 1 [facility], [facility] 2 [place] [phone] 12/25/2024 6:45 EST Treatment [facility] [place] [address] [place] [address] Carlota Jin MD 1 [facility], [facility] 2 [place] [phone] 12/27/2024 6:45 EST Treatment [facility] [place] [address] [place], [place] [phone] Carlota Jin MD 1 [facility], [facility] 2 [place] [phone] 12/29/2024 6:45 EST Treatment [facility] [place] [address] [place], [place] [id number] Carlota Jin MD 1 [facility], [facility] 2 [place] [phone] 01/01/2025 6:45 EDT Treatment [facility] [place] [address] [place], [place] [id number] Carlota Jin MD 1 [facility], [facility] 2 [place] [phone] 01/03/2025 6:45 EDT Treatment [facility] [place] [address] [place], [place] [address] Carlota Jin MD 1 [facility], [facility] 2 [place] [phone] 01/05/2025 6:45 EDT Treatment [facility] [place] [address] [place], [place] [address] Carlota Jin MD 1 [facility], [facility] 2 [place] [phone] 01/08/2025 6:45 EDT Treatment [facility] [place] [address] [place], [place] [id number] Carlota Jin MD 1 [facility], [facility] 2 [place] [phone] 01/10/2025 6:45 EDT Treatment [facility] [place] [address] [place], [place] [address] Carlota Jin MD 1 [facility], [address] [phone] 01/12/2025 6:45 EDT Treatment [facility] [place] [address] [place] [address] Carlota Jin MD 1 [facility], [address] [phone] 01/15/2025 6:45 EDT Treatment [facility] [place] [address] [place], [place] [phone] Carlota Jin MD 1 [facility], [address] [phone] 01/17/2025 6:45 EDT Treatment [facility] [place] [address] [place], [place] [id number] Carlota Jin MD 1 [facility], [address] [phone] 01/19/2025 6:45 EDT Treatment [facility] [place] [address] [place], [place] [id number] Carlota Jin MD 1 [facility], [address] [phone] 01/22/2025 6:45 EDT Treatment [facility] [place] [address] [place], [place] [id number] Carlota Jin MD 1 [facility], [facility] 2 [place] [phone] 01/24/2025 6:45 EDT Treatment [facility] [place] [address] [place], [place] [id number] Carlota Jin MD 1 [facility], [facility] 2 [place] [phone] 01/26/2025 6:45 EDT Treatment [facility] [place] [address] [place], [place] [id number] Carlota Jin MD 1 [facility], [facility] 2 [place] [phone] 01/29/2025 6:45 EDT Treatment [facility] [place] [address] [place], [place] [id number] Carlota Jin MD [address] [place] [address], [address] [phone] 01/31/2025 6:45 EDT Treatment [facility] [place] [address] [place], [place] [id number] Carlota Jin MD 1 [facility], [facility] 2 [place] [phone] 02/02/2025 6:45 EDT Treatment [facility] [place] [address] [place], [place] [id number] Carlota Jin MD 1 [facility], [facility] 2 [place] [phone] 02/05/2025 6:45 EDT Treatment [facility] [place] [address] [place], [place] [id number] Carlota Jin MD 1 [facility], [facility] 2 [place] [phone] 02/07/2025 6:45 EDT Treatment [facility] [place] [address] [place], [place] [id number] Carlota Jin MD 1 [facility], [address] [phone] 02/09/2025 6:45 EDT Treatment [facility] [place] [address] [place], [place] [id number] Carlota Jin MD 1 [facility], [address] [phone] 02/12/2025 6:45 EDT Treatment [facility] [place] [address] [place], [place] [id number] Carlota Jin MD 1 [facility], [address] [phone] 02/14/2025 6:45 EDT Treatment [facility] [place] [address] [place], [place] [id number] Carlota Jin MD 1 [facility], [facility] 2 [place] [phone] 02/16/2025 6:45 EDT Treatment [facility] [place] [address] [place], [place] [id number] Carlota Jin MD 1 [facility] Level [address] [place] [phone] 02/19/2025 6:45 EDT Treatment [facility] [place] [address] [place], [place] [id number] Carlota Jin MD 1 [facility], [facility] 2 [place] [phone] 02/21/2025 6:45 EDT Treatment [facility] [place] [address] [place] [address] Carlota Jin MD 1 [facility], [facility] 2 [place] [phone] documented as of this encounter Procedures Procedure Name Priority Date/Time Associated Diagnosis Comments BLOOD CULTURE- FOR DIALYSIS USE ONLY Routine 07/26/2024 11:05 EDT BLOOD CULTURE- FOR DIALYSIS USE ONLY Today 07/26/2024 11:05 EDT POCT GLUCOSE, INTERFACED Routine 07/26/2024 10:14 EDT POCT GLUCOSE, INTERFACED Routine 07/26/2024 9:07 EDT COMPLETE BLOOD COUNT Routine 07/26/2024 6:33 EDT ESRD (end stage renal disease) ([facility]) HEMODIALYSIS Routine 07/26/2024 6:26 EDT ESRD (end stage renal disease) ([facility]) documented in this encounter Results * BLOOD CULTURE- FOR DIALYSIS USE ONLY (07/26/2024 11:05 EDT) Organism ID No Growth at 5 days 07/31/2024 11:15 EDT [facility] Blood VENOUS BLOOD / Unknown Peripheral Draw / Unknown 07/26/2024 11:05 EDT 07/26/2024 11:08 EDT us Skye Gomez NP MICROBIOLOGY - GENERAL [place]EF [place] Final Result Performing Organization Address City/[facility]/ZIP Co de Phone Number [facility] [address] [place], [place] [phone] * BLOOD CULTURE- FOR DIALYSIS USE ONLY (07/26/2024 11:05 EDT) [facility] Organism ID No Growth at 5 days 07/31/2024 11:15 EDT [facility] Blood ARTERIAL BLOOD / Unknown Peripheral Draw / Unknown 07/26/2024 11:05 EDT 07/26/2024 11:08 EDT Skye Gomez NP MICROBIOLOGY - GENERAL [place]EF [place] Final Result Performing Organization Address [facility]/ZIP Co de Phone Number [facility] [address] [place] [address] * POCT GLUCOSE, INTERFACED (07/26/2024 10:14 EDT) [facility] Glucose, POC 100 70 - 100 mg/dL 07/26/2024 10:19 EDT [facility] HN LAB POC COMMENT (GLUCOSE) Test Performed by Nursing Services 07/26/2024 10:19 EDT [facility] Blood CAPILLARY BLOOD / Unknown 07/26/2024 10:14 EDT 07/26/2024 10:19 EDT us Carlota Jin MD POINT OF CARE TEST ORDERA BLES Final Result [facility] [address] [place], [place] [phone] * (ABNORMAL) POCT GLUCOSE, INTERFACED (07/26/2024 9:07 EDT) Glucose, POC 135(H) 70 - 100 mg/dL 07/27/2024 8:44 EDT [facility] HN LAB POC COMMENT (GLUCOSE) Test Performed by Nursing Services 07/27/2024 8:44 [facility] Blood CAPILLARY BLOOD / Unknown 07/26/2024 9:07 EDT 07/27/2024 8:44 EDT us Carlota Jin MD POINT OF CARE TEST ORDERA BLES Final Result [facility] [address] [place] [address] * (ABNORMAL) COMPLETE BLOOD COUNT (07/26/2024 6:33 EDT) Pathologist [facility] WBC 10.00 4.00 - 10.40 K/cmm 07/26/2024 22:23 [facility] RBC 4.08(L) 4.36 - 5.78 M/cmm 07/26/2024 22:23 [facility] Hemoglobin 11.0(L) 13.8 - 17.3 g/dL 07/26/2024 22:23 [facility] HCT 34.8(L) 39.5 - 50.2 % 07/26/2024 22:23 [facility] MCV 85 81 - 95 fL 07/26/2024 22:23 [facility] MCH 27.0(L) 27.6 - 33.0 pg 07/26/2024 22:23 [facility] MCHC 31.6(L) 32.8 - 36.4 g/dL 07/26/2024 22:23 [facility] RDW-CV 17.5(H) <14.2 % 07/26/2024 22:23 [facility] RDW-SD 55.1(H) <46.0 fl 07/26/2024 22:23 [facility] PLT 192 141 - 377 K/cmm 07/26/2024 22:23 [facility] MPV 11.9 9.5 - 12.7 fL 07/26/2024 22:23 EDT [facility] Blood VENOUS BLOOD / Unknown Venipuncture / Unknown 07/26/2024 6:33 EDT 07/26/2024 6:33 EDT Skye Gomez NP HEMATOLOGY & PF4 ORDERABLES Final Result [facility] [address] [place] [address] documented in this encounter Visit Diagnoses Diagnosis ESRD (end stage renal disease) ([facility])- Primary End stage renal disease Hypoalbuminemia Other disorders of plasma protein metabolism Secondary hyperparathyroidism ([facility]) Secondary hyperparathyroidism (of renal origin) documented in this encounter Administered Medications Inactive Administered Medications - up to 3 most recent administrations Medication Order MAR Action Action Date Dose Rate Site acetaminophen (TYLENOL) tablet 650 mg 650 mg, oral, EVERY 4 HOURS PRN, Starting on Wed07/26/24 at 0626, Until Wed07/26/24 at 1357, Pain, Routine, DialysisIndications:ESRD (end stage renal disease) ([facility]) Given 07/26/2024 10:12 EDT 650 mg Given 07/26/2024 6:35 EDT 650 mg calcium carbonate (TUMS) tablet 500 mg (200 mg elemental calcium) 2 Tablet 2 Tablet, oral, ONCE IN DIALYSIS, 1 dose, On Wed07/26/24 at 0645, Routine, DialysisIndications:ESRD (end stage renal disease) ([facility]),Secondary hyperparathyroidism ([facility]) Given 07/26/2024 6:35 EDT 2 Tablets heparin injection 3,000 Units 3,000 Units, intravenous, ONCE IN DIALYSIS, 1 dose, On Wed07/26/24 at 0645, Routine, Dialysis, Now x1 bolus 1500 units to be given at the beginning of dialysis 500 units/hour to be given over the course of dialysis (3000 units total). Stop 1 hour prior to end of treatment. To be administered per Policy [id number].Indications:ESRD (end stage renal disease) ([facility]) Given 07/26/2024 6:44 EDT 3,000 Units LiquaCel liquid protein liquid 30 mL 30 mL, oral, ONCE IN DIALYSIS, 1 dose, On Wed07/26/24 at 0645, Patient's flavor preference: either, RoutineIndications:ESRD (end stage renal disease) ([facility]),Hypoalbuminemia Given 07/26/2024 6:35 EDT 30 mL documented in this encounter Orders Dialysis Count Last Ordered Date First Orde red Date HEMODIALYSIS 1 07/26/2024 documented in this encounter Care Teams Reforestation Worker Relationship Specialty Start Date End Date Ken Greer MD [address] [place] [address] PCP - General 07/07/23 Kiel Powers Front Window Cashier Nephrology 05/31/24 documented as of this encounter
--- OUTSIDE RECORDS SUMMARY | 2024-12-05 11:59 | XMS_ITS | Encounter Summary ---
Author Organization [facility] Address [address] [place] [address] Care Team Providers Care Production Line Welder Name Role Phone Ken Greer MD Primary Care Provider [phone] Kiel Powers Unavailable Unavailable Reason for Visit * Episode Based Medications (Routine) - New Request Specialty Diagnoses / Procedures Referred By Nader gardiner Referred To Contact Diagnoses ESRD (end stage renal disease) ([facility]) Carlota Jin MD [address] [place] [address] 2 [place] [address] Phone: tel: fax: [facility] [place] [address] [place] [address] Phone: tel: fax: Referral ID Status Reason Start Date Expiration Date V isits Requested Visits Authorized [id number] New Request 03/17/2024 1 1 Encounter Details Date Type Department Care Team (Latest Contact Info) Description 07/28/2024 6:45 EDT Treatment [facility] [address] [place], [place] [id number] Carlota Jin MD [address] [place] [address], [facility] [address] [place] [address] ESRD (end stage renal disease) ([facility]) (Primary Dx); Hypoalbuminemia; Secondary hyperparathyroidism ([facility]) Social History Tobacco Use Types Packs/Day [...] time in the past 12 m [facility], were you homeless or living in a [...] In the past 12 months has th [employer]), gas, oil, or water [employer] threatened to shut off services in your [...] - Temperature - - Respiratory Rate 16 07/28/2024 0635 EDT Oxygen Saturation - - Inhaled Oxygen Concentration - - Weight 79.7 kg (175 lb 11.3 oz) 07/28/2024 0627 EDT Height - - Body Mass Index 25.21 [...] Flowsheet Note - Marcela Cox RN - 07/28/2024 1120 EDT 07/28/24 1048 Post-Hemodialysis Assessment Total Blood Processed (L) 90.57 Liters On Line Clearance: spKt/V 1.61 spKt/V Dialyzer Clearance Lightly streaked Treatment UFR (ml:kg:hr) 14.9 ml:kg:hr Critline refill Not done Fluid Removed (L) 4.3 L Post-Dialysis Scale Weight 96.6 kg (212 lb 15.4 oz) Wheelchair Weight 21.4 kg (47 lb 2.9 oz) Prosthesis Weight 0 kg (0 lb) Post-Treatment Weight (kg) 75.2 Treatment Weight Change (kg) 4.5 kg Day Target Weight (kg) 75.9 Post Sitting/Lying BP 169/79 Post Sitting/Lying pulse 63 Temp 36.6 ??C [...] Removed 4.3L UF goal without difficulty. Comments pt continues to c/o severe headache during tx, medicated with PRN tylenol mid tx with little improvement. Educated pt and to f/u with PCP and or chiropractor for further eval documented in this encounter Plan of Treatment Upcoming Encounters Date Type Department Care Team (Late st Contact Info) Description 12/06/2024 6:45 EST Treatment [facility] [place] [address] [place], [place] [id number] Carlota Jin MD [address] [phone] 12/08/2024 6:45 EST Treatment [facility] [address] [place], [place] [phone] Carlota Jin MD [address] [phone] 12/11/2024 6:45 EST Treatment [facility] [address] [place], [place] [phone] Carlota Jin MD [address] [phone] 12/13/2024 6:45 EST Treatment [facility] [address] [place], [place] [id number] Carlota Jin MD [address] [phone] 12/15/2024 6:45 EST Treatment [facility] [address] [place], [place] [phone] Carlota Jin MD [address] [phone] 12/18/2024 6:45 EST Treatment [facility] [place] [address] [place], [place] [phone] Carlota Jin MD 1 [facility], [facility] 2 [place] [phone] 12/20/2024 6:45 EST Treatment [facility] [place] [address] [place] [address] Carlota Jin MD 1 [facility], [facility] [address] [place] [phone] 12/22/2024 6:45 EST Treatment [facility] [place] [address] [place], [place] [address] [phone] Carlota Jin MD 1 [facility], [facility] [address] [place] [phone] 12/25/2024 6:45 EST Treatment [facility] [place] [address] [place] [address] Carlota Jin MD 1 [facility], [facility] [address] [place] [phone] 12/27/2024 6:45 EST Treatment [facility] [place] [address] [place], [place] [address] Carlota Jin MD 1 [facility], [facility] [address] [place] [phone] 12/29/2024 6:45 EST Treatment [facility] [place] [address] [place], [place] [address] Carlota Jin MD 1 [facility], [address] [phone] 01/01/2025 6:45 EDT Treatment [facility] [place] [address] [place] [address] Carlota Jin MD 1 [facility], [address] [phone] 01/03/2025 6:45 EDT Treatment [facility] [place] [address] [place], [place] [phone] Carlota Jin MD 1 [facility], [address] [phone] 01/05/2025 6:45 EDT Treatment [facility] [place] [address] [place], [place] [phone] Carlota Jin MD 1 [facility], [address] [phone] 01/08/2025 6:45 EDT Treatment [facility] [place] [address] [place], [place] [address] Carlota Jin MD [address] [phone] 01/10/2025 6:45 EDT Treatment [facility] [place] [address] [place], [place] [address] Carlota Jin MD 1 [facility], [facility] [address] [place] [phone] 01/12/2025 6:45 EDT Treatment [facility] [place] [address] [place], [place] [phone] Carlota Jin MD 1 [facility], [facility] 2 [place] [phone] 01/15/2025 6:45 EDT Treatment [facility] [place] [address] [place], [place] [address] Carlota Jin MD 1 [facility], [facility] 2 [place] [phone] 01/17/2025 6:45 EDT Treatment [facility] [place] [address] [place], [place] [address] Carlota Jin MD 1 [facility], [facility] [address] [place] [phone] 01/19/2025 6:45 EDT Treatment [facility] [place] [address] [place], [place] [phone] Carlota Jin MD 1 [facility], [facility] [address] [place] [phone] 01/22/2025 6:45 EDT Treatment [facility] [place] [address] [place], [place] [phone] Carlota Jin MD 1 [facility], [facility] [address] [place] [phone] 01/24/2025 6:45 EDT Treatment [facility] [place] [address] [place], [place] [address] Carlota Jni MD 1 [facility], [facility] 2 [place] [phone] 01/26/2025 6:45 EDT Treatment [facility] [place] [address] [place], [place] [phone] Carlota Jin MD 1 [facility], [facility] 2 [place] [phone] 01/29/2025 6:45 EDT Treatment [facility] [place] [address] [place], [place] [phone] Carlota Jin MD 1 [facility], [address] [phone] 01/31/2025 6:45 EDT Treatment [facility] [place] [address] [place], [place] [address] Carlota Jin MD 1 [facility], [address] [phone] 02/02/2025 6:45 EDT Treatment [facility] [place] [address] [place], [place] [address] Carlota Jin MD 1 [facility], [facility] 2 [place] [phone] 02/05/2025 6:45 EDT Treatment [facility] [place] [address] [place], [place] [phone] Carlota Jin MD 1 [facility], Level [address] [place] [phone] 02/07/2025 6:45 EDT Treatment [facility] [place] [address] [place], [place] [address] Carlota Jin MD 1 [facility], [facility] 2 [place] [phone] 02/09/2025 6:45 EDT Treatment [facility] [place] [address] [place], [place] [address] Carlota Jin MD 1 [facility], [facility] [address] [place] [phone] 02/12/2025 6:45 EDT Treatment [facility] [place] [address] [place], [place] [address] Carlota Jin MD 1 [facility], [facility] [address] [place] [phone] 02/14/2025 6:45 EDT Treatment [facility] [place] [address] [place] [address] Carlota Jin MD 1 [facility], [facility] [address] [place] [phone] 02/16/2025 6:45 EDT Treatment [facility] [place] [address] [place], [place] [address] Carlota Jin MD 1 [facility], [facility] 2 [place] [phone] 02/19/2025 6:45 EDT Treatment [facility] [place] [address] [place], [place] [address] Carlota Jin MD 1 [facility], [facility] [address] [place] [phone] 02/21/2025 6:45 EDT Treatment [facility] [address] [place], [place] [phone] Carlota Jin MD 1 [facility], [facility] 2 [place] [phone] documented as of this encounter Procedures Procedure Name Priority Date/Time Associated Diagnosis Comments HEMODIALYSIS Routine 07/28/2024 6:35 EDT ESRD (end stage renal disease) ([facility]) documented in this encounter Visit Diagnoses Diagnosis ESRD (end stage renal disease) ([facility])- Primary End stage renal disease Hypoalbuminemia Other disorders of plasma protein metabolism Secondary hyperparathyroidism ([facility]) Secondary hyperparathyroidism (of renal origin) documented in this encounter Administered Medications Inactive Administered Medications - up to 3 most recent administrations Medication Order MAR Action Action Date Dose Rate Site acetaminophen (TYLENOL) tablet 650 mg 650 mg, oral, EVERY 4 HOURS PRN, Starting on Wed07/28/24 at 0911, Until Wed07/28/24 at 1320, Pain, Routine, DialysisIndications:ESRD (end stage renal disease) ([facility]) Given 07/28/2024 9:19 EDT 650 mg calcium carbonate (TUMS) tablet 500 mg (200 mg elemental calcium) 2 Tablet 2 Tablet, oral, ONCE IN DIALYSIS, 1 dose, On Wed07/28/24 at 0700, Routine, DialysisIndications:ESRD (end stage renal disease) ([facility]),Secondary hyperparathyroidism ([facility]) Given 07/28/2024 6:45 EDT 2 Tablets heparin injection 3,000 Units 3,000 Units, intravenous, ONCE IN DIALYSIS, 1 dose, On Wed07/28/24 at 0700, Routine, Dialysis, Now x1 bolus 1500 units to be given at the beginning of dialysis 500 units/hour to be given over the course of dialysis (3000 units total). Stop 1 hour prior to end of treatment. To be administered per Policy [id number].Indications:ESRD (end stage renal disease) ([facility]) Given 07/28/2024 6:50 EDT 3,000 Units LiquaCel liquid protein liquid 30 mL 30 mL, oral, ONCE IN DIALYSIS, 1 dose, On Wed07/28/24 at 0700, Patient's flavor preference: either, RoutineIndications:ESRD (end stage renal disease) ([facility]),Hypoalbuminemia Given 07/28/2024 6:45 EDT 30 mL documented in this encounter Orders Dialysis Count Last Ordered Date First Orde red Date HEMODIALYSIS 1 07/28/2024 documented in this encounter Care Teams Production Line Welder Relationship Specialty Start Date End Date Ken Greer MD [address] [place] [address] PCP - General 07/07/23 Kiel Powers Lithograph Designer Nephrology 05/31/24 documented as of this encounter
--- OUTSIDE RECORDS SUMMARY | 2024-12-05 11:59 | XMS_ITS | Encounter Summary ---
Author Organization [facility] Address [address] [address] Care Team Providers Care Adobe Flex Developer Name Role Phone Ken Greer MD Primary Care Provider [phone] Kiel Powers Unavailable Unavailable Reason for Visit * Reason Onset Date Comments Coordination Of Care 07/28/2024 Encounter Details Date Type Department Care Team (Late st Contact Info) Description 07/28/2024 Telephone [facility] [place] [address] [place] [address] Valery Rice, RN [address] [place] [address] Coordination Of Care Social History Tobacco Use Types Packs/Day Years Used Date Smoking Tobacco: Every Day Cigarettes 1 26.1 Started: 1998 Smokeless Tobacco: Never Alcohol Use Standard Drinks/Week Comments Yes 0 (1 standard drink = 0.6 oz pur e alcohol) Socially [facility] Utilities Answer Date Recorded In the past 12 months has [employer], gas, oil, or water [employer] threatened to shut off services in your [...] your living situation today? [facility] 05/30/2024 Think about the [...] does anyone, inclu eloy family and friends, scream or curse at [...] has e electric, gas, oil, or water [employer] threatened to shut off services in your [...] Daria Fonseca RN documented in this encounter Miscellaneous Notes * Telephone Encounter - Valery Rice RN - 07/28/2024 1423 EDT Phone call to Gerson Bruner to discuss recent visit with Transplant. Lmtcb documented in this encounter Plan of Treatment Upcoming Encounters Date Type Department Care Team (Late st Contact Info) Description 12/06/2024 6:45 EST Treatment [facility] [place] [address] [place], [place] [address] Carlota Jin MD 1 [facility], [facility] 2 [place] [phone] 12/08/2024 6:45 EST Treatment [facility] [place] [address] [place], [place] [phone] Carlota Jin MD 1 [facility], [address] [phone] 12/11/2024 6:45 EST Treatment [facility] [place] [address] [place], [place] [phone] Carlota Jin MD 1 [facility], [address] [phone] 12/13/2024 6:45 EST Treatment [facility] [place] [address] [place], [place] [address] Carlota Jin MD [address] [phone] 12/15/2024 6:45 EST Treatment [facility] [address] [place], [place] [phone] Carlota Jin MD [address] [phone] 12/18/2024 6:45 EST Treatment [facility] [place] [address] [place], [place] [phone] Carlota Jin MD 1 [facility], [facility] [address] [place] [phone] 12/20/2024 6:45 EST Treatment [facility] [place] [address] [place], [place] [phone] Carlota Jin MD 1 [facility], [facility] [address] [place] [phone] 12/22/2024 6:45 EST Treatment [facility] [place] [address] [place], [place] [address] Carlota Jin MD 1 [facility], [facility] [address] [place] [phone] 12/25/2024 6:45 EST Treatment [facility] [place] [address] [place] [address] Carlota Jin MD 1 [facility], [facility] [address] [place] [phone] 12/27/2024 6:45 EST Treatment [facility] [place] [address] [place], [place] [phone] Carlota Jin MD 1 [facility], [facility] [address] [place] [phone] 12/29/2024 6:45 EST Treatment [facility] [place] [address] [place], [place] [phone] Carlota Jin MD 1 [facility], [facility] [address] [place] [phone] 01/01/2025 6:45 EDT Treatment [facility] [place] [address] [place], [place] [address] Carlota Jin MD 1 [facility], [facility] [address] [place] [phone] 01/03/2025 6:45 EDT Treatment [facility] [place] [address] [place], [place] [phone] Carlota Jin MD 1 [facility], [facility] [address] [place] [phone] 01/05/2025 6:45 EDT Treatment [facility] [place] [address] [place], [place] [phone] Carlota Jin MD 1 [facility], [address] [phone] 01/08/2025 6:45 EDT Treatment [facility] [place] [address] [place], [place] [phone] Carlota Jin MD [address] [phone] 01/10/2025 6:45 EDT Treatment [facility] [place] [address] [place], [place] [address] Carlota Jin MD [address] [phone] 01/12/2025 6:45 EDT Treatment [facility] [place] [address] [place], [place] [id number] Carlota Jin MD 1 [facility] 2 [place] [phone] 01/15/2025 6:45 EDT Treatment [facility] [place] [address] [place], [place] [id number] Carlota Jin MD 1 [facility], [facility] [address] [place] [phone] 01/17/2025 6:45 EDT Treatment [facility] [place] [address] [place], [place] [address] Carlota Jin MD 1 [facility], [facility] [address] [place] [phone] 01/19/2025 6:45 EDT Treatment [facility] [place] [address] [place], [place] [id number] Carlota Jin MD 1 [facility], [facility] [address] [place] [phone] 01/22/2025 6:45 EDT Treatment [facility] [place] [address] [place], [place] [phone] Carlota Jin MD 1 [facility], [facility] [address] [place] [phone] 01/24/2025 6:45 EDT Treatment [facility] [place] [address] [place], [place] [address] Carlota Jin MD 1 [facility], [facility] [address] [place] [phone] 01/26/2025 6:45 EDT Treatment [facility] [place] [address] [place], [place] [address] Carlota Jin MD 1 [facility], [facility] [address] [place] [phone] 01/29/2025 6:45 EDT Treatment [facility] [place] [address] [place], [place] [address] Carlota Jin MD [address] [place] [address], [address] [phone] 01/31/2025 6:45 EDT Treatment [facility] [place] [address] [place], [place] [address] Carlota Jin MD [address] [place] [address], [address] [phone] 02/02/2025 6:45 EDT Treatment [facility] [place] [address] [place], [place] [phone] Carlota Jin MD [address] [place] [address], [facility] [address] [place] [phone] 02/05/2025 6:45 EDT Treatment [facility] [place] [address] [place], [place] [phone] Carlota Jin MD 1 [facility], [facility] [address] [place] [phone] 02/07/2025 6:45 EDT Treatment [facility] [place] [address] [place], [place] [address] Carlota Jin MD 1 [facility], [facility] [address] [place] [phone] 02/09/2025 6:45 EDT Treatment [facility] [place] [address] [place], [place] [address] Carlota Jin MD 1 [facility], [facility] [address] [place] [phone] 02/12/2025 6:45 EDT Treatment [facility] [place] [address] [place] [address] Carlota Jin MD 1 [facility], [facility] [address] [place] [phone] 02/14/2025 6:45 EDT Treatment [facility] [place] [address] [place], [place] [address] [phone] Carlota Jin MD 1 [facility], [facility] [address] [place] [phone] 02/16/2025 6:45 EDT Treatment [facility] [place] [address] [place] [address] Carlota Jin MD 1 [facility], [facility] [address] [place] [phone] 02/19/2025 6:45 EDT Treatment [facility] [place] [address] [place], [place] [address] Carlota Jin MD 1 [facility], [facility] [address] [place] [phone] 02/21/2025 6:45 EDT Treatment [facility] [place] [address] [place] [address] Carlota Jin MD 1 [facility], [address] [place] [phone] documented as of this encounter Visit Diagnoses Not on filedocumented in this encounter Care Teams Adobe Flex Developer Relationship Specialty Start Date End Date Ken Greer MD [employer] [place] [address] PCP - General 07/07/23 Kiel Powers Cash Controller Nephrology 05/31/24 documented as of this encounter
--- OUTSIDE RECORDS SUMMARY | 2024-12-05 11:59 | XMS_ITS | Encounter Summary ---
Author Organization [facility] Address [address] [place] [address] Care Team Providers Care Sheriff Detective Name Role Phone Ken Greer MD Primary Care Provider [phone] Kiel Powers Unavailable Unavailable Encounter Details Date Type Department Care Team (Late st Contact Info) Description 07/21/2024 Documentation Visit [facility] [address] [place] [address] Alexa Estrada, [facility] [address] [place] [address] Social History Tobacco Use Types Packs/Day Years Used Date Smoking Tobacco: Every Day Cigarettes 1 26.1 Started: 1998 Smokeless Tobacco: Never Alcohol Use Standard Drinks/Week Comments Yes 0 (1 standard drink = 0.6 oz pur e alcohol) Socially [facility] Utilities Answer Date Recorded In the past 12 months has [facility] [employer], gas, oil, or water [employer] threatened to shut off services in [...] any time in the past 12 m the rehabilitation institute, were you homeless or living in a prison (including now)? No 05/30/2024 Interpersonal Safety Answer Date Record ed How often does anyone, martin lyons family, hit, punch or physically hurt you? 05/30/2024 How often does anyone, martin lyons family, insult, scream, curse or threaten to hurt you? 05/30/2024 Living Situation Answer Date Recorded What is your living situation today? I have a [facility] place to live 05/30/2024 Think about [...] th e electric, gas, oil, or water [employer] threatened to shut off services in [...] this encounter Progress Notes * Alexa Estrada, [facility] - 07/21/2024 1113 EDT Dialysis SW note: Pt reported suicidal ideation with a plan to Marcela Cox RN (see note) today at dialysis, pre-treatment. Pt reports that he is a man walking since he was declined by transplant. Pt stated that [place] with [place] gun, and that he wishes forhis cremated ashes to be shot in a cannonball into an apple orchard. After a couple of hours on treatment, SW met with pt to reassess pts mental status and make a safety plan with the pt. Pt declinedto go to the ED, and denied SI at this time, stating I say stuff like that all the time. Pt dismissed that this was a serious statement. SW explained the concern that he made this statement earlier and the need to discuss and make a safety plan with his , Melissa Bruner, who is also his healthcare agent, caregiver and emergency contact. Pt stated if you do that I'm not ever coming back to dialysis. SW provided reflective listening and pt asked SW to leave. Pt refused to engage further with this SW after this point to discuss making a safety plan. At the end of treatment, pt attempted to leave dialysis unit before SW could meet with his - SWwheeled his wheelchair quickly off the unit. SW was able to meet with his without the pt present, per the pts request. Explained to Melissa what had happened prior to treatment, Melissa said she is not concerned as she is with the pt 17/05 and he is completely reliant on her for all ADL's , she states he could not even get [place] the [place]. Melissa also says that he has said this beforeand has not followed through. Pt shared suicidal ideation with a plan this morning pre dialysis treatment, but denied suicidal ideation a couple of hours after treatment. He became very upset and stated that he would not return to dialysis when SW discussed a safety plan with his . Safety plan SW unable to discuss safety plan with pt as he refused to engage further with this SW, and denied suicidal ideation by the time of making this plan. SHANNON discussed with Melissa the need to lock all guns when they get home. Melissa states that he will not have access to guns tonight, as they are not sleeping at their apartment that has guns. She also says that he could not get a gun without her assistance, so it will not be difficult to ensure that he does not have access to guns. SHANNON printed and gave copy to Melissa with the following resources in the event that the pt becomes suicidal again; 17/05 Suicide Support Line, [place] texting crisis line, and the [facility] Crisis phone #. SHANNON also advised that if the pt becomes actively suicidal again, the ED is also an option. Melissa stated understanding of the safety plan. SW forwarded this note to pts PCP, Dr. Ken Greer so that possibly underlying depression can be addressed. SW will continue to follow and remain available. SW will follow up with pt on Tuesday 07/24. documented in this encounter Plan of Treatment Upcoming Encounters Date Type Department Care Team (Late st Contact Info) Description 12/06/2024 6:45 EST Treatment [facility] [place] [address] [place], [place] [id number] Carltoa Jin MD 1 [facility] [address] [place] [phone] 12/08/2024 6:45 EST Treatment [facility] [place] [address] [place], [place] [id number] Carlota Jin MD [address] [place] [phone] 12/11/2024 6:45 EST Treatment [facility] [place] [address] [place], [place] [id number] Carlota Jin MD [address] [place] [phone] 12/13/2024 6:45 EST Treatment [facility] [place] [address] [place], [place] [id number] Carlota Jin MD [address] [place] [address] [address] [place] [phone] 12/15/2024 6:45 EST Treatment [facility] [place] [address] [place], [place] [id number] Carlota Jin MD 1 [facility] [address] [place] [phone] 12/18/2024 6:45 EST Treatment [facility] [place] [address] [place], [place] [id number] Carlota Jin MD 1 [facility], [facility] [address] [place] [phone] 12/20/2024 6:45 EST Treatment [facility] [place] [address] [place], [place] [id number] Carlota Jin MD 1 [facility], [facility] [address] [place] [phone] 12/22/2024 6:45 EST Treatment [facility] [place] [address] [place], [place] [id number] Carlota Jin MD 1 [facility], [facility] [address] [place] [phone] 12/25/2024 6:45 EST Treatment [facility] [address] [place], [place] [id number] Carlota Jin MD 1 [facility], [facility] [address] [place] [phone] 12/27/2024 6:45 EST Treatment [facility] [place] [address] [place], [place] [id number] Carlota Jin MD 1 [facility], [facility] [address] [place] [phone] 12/29/2024 6:45 EST Treatment [facility] [place] [address] [place], [place] [id number] Carlota Jin MD 1 [facility], [facility] [address] [place] [phone] 01/01/2025 6:45 EDT Treatment [facility] [place] [address] [place], [place] [id number] Carlota Jin MD 1 [facility], [facility] [address] [place] [phone] 01/03/2025 6:45 EDT Treatment [facility] [place] [address] [place], [place] [id number] Carlota Jin MD 1 [facility], [facility] [address] [place] [phone] 01/05/2025 6:45 EDT Treatment [facility] [place] [address] [place], [place] [id number] Carlota Jin MD 1 [facility], [facility] [address] [place] [phone] 01/08/2025 6:45 EDT Treatment [facility] [place] [address] [place], [place] [id number] Carlota Jin MD 1 [facility], [facility] [address] [place] [phone] 01/10/2025 6:45 EDT Treatment [facility] [place] [address] [place], [place] [id number] Carlota Jin MD 1 [facility], [facility] [address] [place] [phone] 01/12/2025 6:45 EDT Treatment [facility] [place] [address] [place], [place] [id number] Carlota Jin MD 1 [facility], [facility] [address] [place] [phone] 01/15/2025 6:45 EDT Treatment [facility] [place] [address] [place], [place] [id number] Carlota Jin MD 1 [facility], [facility] [address] [place] [phone] 01/17/2025 6:45 EDT Treatment [facility] [place] [address] [place], [place] [phone] Carlota Jin MD 1 [facility], [facility] [address] [place] [phone] 01/19/2025 6:45 EDT Treatment [facility] [place] [address] [place], [place] [id number] Carlota Jin MD 1 [facility], [facility] [address] [place] [phone] 01/22/2025 6:45 EDT Treatment [facility] [place] [address] [place], [place] [id number] Carlota Jin MD 1 [facility], [facility] [address] [place] [phone] 01/24/2025 6:45 EDT Treatment [facility] [place] [address] [place], [place] [id number] Carlota Jin MD 1 [facility], [facility] [address] [place] [phone] 01/26/2025 6:45 EDT Treatment [facility] [place] [address] [place], [place] [id number] Carlota Jin MD 1 [facility], [facility] [address] [place] [phone] 01/29/2025 6:45 EDT Treatment [facility] [address] [place], [place] [id number] Carlota Jin MD [address] [place] [address], [address] [phone] 01/31/2025 6:45 EDT Treatment [facility] [address] [place], [place] [id number] Carlota Jin MD [address] [place] [address], [facility] [address] [place] [phone] 02/02/2025 6:45 EDT Treatment [facility] [address] [place], [place] [id number] Carlota Jin MD 1 [facility], [facility] [address] [place] [phone] 02/05/2025 6:45 EDT Treatment [facility] [place] [address] [place], [place] [id number] Carlota Jin MD 1 [facility], [facility] [address] [place] [phone] 02/07/2025 6:45 EDT Treatment [facility] [place] [address] [place], [place] [id number] Carlota iJn MD 1 [facility], [facility] [address] [place] [phone] 02/09/2025 6:45 EDT Treatment [facility] [place] [address] [place], [place] [phone] Carlota Jin MD 1 [facility], [address] [phone] 02/12/2025 6:45 EDT Treatment [facility] [place] [address] [place], [place] [id number] Carlota Jin MD [address] [phone] 02/14/2025 6:45 EDT Treatment [facility] [place] [address] [place], [place] [phone] Carlota Jin MD [address] [phone] 02/16/2025 6:45 EDT Treatment [facility] [place] [address] [place], [place] [id number] Carlota Jin MD 1 [facility], [address] [place] [phone] 02/19/2025 6:45 EDT Treatment [facility] [address] [place], [place] [id number] Carlota Jin MD 1 [facility], [facility] 2 [place] [phone] 02/21/2025 6:45 EDT Treatment [facility] [address] [place] [phone] Carlota Jin MD 1 [facility], [facility] 2 [place] [phone] documented as of this encounter Visit Diagnoses Not on filedocumented in this encounter Care Teams Sheriff Detective Relationship Specialty Start Date End Date Ken Greer MD [facility] [place] [address] PCP - General 07/07/23 Kiel Powers Social Work Lecturer Nephrology 05/31/24 documented as of this encounter
--- OUTSIDE RECORDS SUMMARY | 2024-12-05 11:59 | XMS_ITS | Encounter Summary ---
Author Organization [facility] Address [address] [place] [address] Care Team Providers Care Counter Waiter Name Role Phone Ken Greer MD Primary Care Provider [phone] Kiel Powers Unavailable Unavailable Reason for Visit * Episode Based Medications (Routine) - New Request Specialty Diagnoses / Procedures Referred By Nader gardiner Referred To Contact Diagnoses ESRD (end stage renal disease) ([facility]) Carlota Jin MD [address] [place] [address] [address] [place] [address] Phone: tel: fax: [facility] [place] [address] [place] [address] Phone: tel: fax: Referral ID Status Reason Start Date Expiration Date V isits Requested Visits Authorized [id number] New Request 03/17/2024 1 1 Encounter Details Date Type Department Care Team (Latest Contact Info) Description 07/21/2024 6:45 EDT Treatment [facility] [address] [place], [place] [id number] Carlota Jin MD [address] [place] [address], [facility] [address] [place] [phone] ESRD (end stage renal disease) ([facility]) (Primary Dx); Hypoalbuminemia; Secondary hyperparathyroidism ([facility]) Social History Tobacco Use Types Packs/Day Years Used Date Smoking Tobacco: Every Day Cigarettes 1 26.1 Started: 1998 Smokeless Tobacco: Never Alcohol Use Standard Drinks/Week Comments Yes 0 (1 standard drink = 0.6 oz pur e alcohol) Socially [facility] Utilities Answer Date Recorded In the [...] any time in the past 12 m [facility], were you homeless or [...] In the past 12 months has th [employer], gas, oil, or water [employer] threatened to shut off services in your [...] - Temperature - - Respiratory Rate 16 07/21/2024 0618 EDT Oxygen Saturation - - Inhaled Oxygen Concentration - - Weight 78.5 kg (173 lb 1 oz) 07/21/2024 0621 EDT Height - - Body Mass Index 24.83 [...] Progress Notes * Marcela Cox RN - 07/21/2024 0645 EDT Pre Dialysis tx this am pt expressed SI with a plan to both myself and HD tech Rhea Garcia. Pt stated that [place] with [place], and that he wishes for his cremated ashes to be shot in a cannonball into an apple orchard. Pt very upset as he was declined by transplant program yesterday. This RN made MUKESH ORTEGA, and nursing teacher aware. See Paulina ORTEGA note for further details. documented in this encounter Miscellaneous Notes * Flowsheet Note - Marcela Cox RN - 07/21/2024 1408 EDT 07/21/24 1041 Post-Hemodialysis Assessment Total Blood Processed (L) 82.84 Liters On Line Clearance: spKt/V 36.4 spKt/V Dialyzer Clearance Lightly streaked Treatment UFR (ml:kg:hr) 11 ml:kg:hr Final Critline Profile (%/hr) -0.46 Final Profile Profile A Fluid Removed (L) 3.5 L Post-Dialysis Scale Weight 94.1 kg (207 lb 7.3 oz) Wheelchair Weight 19 kg (41 lb 14.2 oz) Prosthesis Weight 0 kg (0 lb) Post-Treatment Weight (kg) 75.1 Treatment Weight Change (kg) 3.4 kg Day Target Weight (kg) 75.5 Post Sitting/Lying BP 165/78 Post Sitting/Lying pulse 62 Temp 36.4 ??C (97.5 ??F) Temp src Temporal Minutes Short -247 Post access assessment AVF/AFG Hemostasis achieved Yes Note 10 minute hold with blue clamps, no rebleed Orientation Alert and Oriented x3 Yes Time Yes Place Yes Person Yes Cooperative Yes Disoriented No Discharge Ambulation Methods Departs via w/c Wrap up items Patient Response to Treatment Tolerated tx well. Removed 3.5L UF goal without difficulty. Comments stable pre tx. documented in this encounter Plan of Treatment Upcoming Encounters Date Type Department Care Team (Late st Contact Info) Description 12/06/2024 6:45 EST Treatment [facility] [address] [place], [place] [phone] Carlota Jin MD [address] [place] [phone] 12/08/2024 6:45 EST Treatment [facility] [address] [place], [place] [phone] Carlota Jin MD [address] [phone] 12/11/2024 6:45 EST Treatment [facility] [address] [place], [place] [id number] Carlota Jin MD [address] [place] [phone] 12/13/2024 6:45 EST Treatment [facility] [place] [address] [place], [place] [id number] Carlota Jin MD 1 [facility], [facility] [address] [place] [phone] 12/15/2024 6:45 EST Treatment [facility] [place] [address] [place], [place] [id number] Carlota Jin MD 1 [facility], [facility] [address] [place] [phone] 12/18/2024 6:45 EST Treatment [facility] [place] [address] [place], [place] [id number] Carlota Jin MD 1 [facility], [facility] [address] [place] [phone] 12/20/2024 6:45 EST Treatment [facility] [place] [address] [place], [place] [id number] Carlota Jin MD 1 [facility], [address] [phone] 12/22/2024 6:45 EST Treatment [facility] [place] [address] [place], [place] [id number] Carlota Jin MD 1 [facility], [facility] [address] [place] [phone] 12/25/2024 6:45 EST Treatment [facility] [place] [address] [place], [place] [id number] Carlota Jin MD 1 [facility] [address] [place] [phone] 12/27/2024 6:45 EST Treatment [facility] [place] [address] [place], [place] [id number] Carlota Jin MD 1 [facility], [facility] [address] [place] [phone] 12/29/2024 6:45 EST Treatment [facility] [address] [place], [place] [id number] Carlota Jin MD 1 [facility], [address] [phone] 01/01/2025 6:45 EDT Treatment [facility] [place] [address] [place], [place] [id number] Carlota Jin MD 1 [facility], [address] [phone] 01/03/2025 6:45 EDT [facility] [address] [place] [address] Carlota Jin MD 1 [facility], [facility] [address] [place] [phone] 01/05/2025 6:45 EDT Treatment [facility] [address] [place], [place] [id number] Carlota Jin MD 1 [facility], [facility] [address] [place] [phone] 01/08/2025 6:45 EDT Treatment [facility] [place] [address] [place], [place] [id number] Carlota Jin MD 1 [facility], [facility] [address] [place] [phone] 01/10/2025 6:45 EDT Treatment [facility] [place] [address] [place], [place] [id number] Carlota Jin MD [address] [place] [address], [address] [phone] 01/12/2025 6:45 EDT Treatment [facility] [place] [address] [place], [place] [id number] Carlota Jin MD [address] [place] [address], [address] [phone] 01/15/2025 6:45 EDT Treatment [facility] [place] [address] [place], [place] [id number] Carlota Jin MD [address] [place] [address], [facility] [address] [place] [phone] 01/17/2025 6:45 EDT Treatment [facility] [place] [address] [place], [place] [id number] Carlota Jin MD 1 [facility], [facility] [address] [place] [phone] 01/19/2025 6:45 EDT Treatment [facility] [place] [address] [place], [place] [id number] Carlota Jin MD 1 [facility], [facility] [address] [place] [phone] 01/22/2025 6:45 EDT Treatment [facility] [place] [address] [place], [place] [address] Carlota Jin MD 1 [facility], [facility] [address] [place] [phone] 01/24/2025 6:45 EDT Treatment [facility] [place] [address] [place], [place] [id number] Carlota Jin MD 1 [facility], [facility] [address] [place] [phone] 01/26/2025 6:45 EDT Treatment [facility] [place] [address] [place] [address] Carlota Jin MD 1 [facility], [facility] [address] [place] [phone] 01/29/2025 6:45 EDT Treatment [facility] [place] [address] [place] [address] Carlota Jin MD 1 [facility], [facility] [address] [place] [phone] 01/31/2025 6:45 EDT Treatment [facility] [place] [address] [place], [place] [id number] Carlota Jin MD 1 [facility], [facility] [address] [place] [phone] 02/02/2025 6:45 EDT Treatment [facility] [place] [address] [place], [place] [id number] Carlota Jin MD 1 [facility], [facility] [address] [place] [phone] 02/05/2025 6:45 EDT Treatment [facility] [place] [address] [place], [place] [id number] Carlota Jin MD 1 [facility], [facility] [address] [place] [phone] 02/07/2025 6:45 EDT Treatment [facility] [place] [address] [place] [address] Carlota Jin MD 1 [facility], [address] [phone] 02/09/2025 6:45 EDT Treatment [facility] [place] [address] [place], [place] [id number] Carlota Jin MD 1 [facility], [facility] [address] [place] [phone] 02/12/2025 6:45 EDT Treatment [facility] [place] [address] [place], [place] [id number] Carlota Jin MD 1 [facility], [facility] [address] [place] [phone] 02/14/2025 6:45 EDT Treatment [facility] [place] [address] [place], [place] [id number] Carlota Jin MD 1 [facility], [address] [phone] 02/16/2025 6:45 EDT Treatment [facility] [place] [address] [place], [place] [id number] Carlota Jin MD [address] [place] [address], [address] [phone] 02/19/2025 6:45 EDT Treatment [facility] [place] [address] [place], [place] [id number] Carlota Jin MD [address] [place] [phone] 02/21/2025 6:45 EDT Treatment [facility] [place] [address] [place], [place] [id number] Carlota Jin MD [address] [place] [phone] documented as of this encounter Procedures Procedure Name Priority Date/Time Associated Diagnosis Comments HEMODIALYSIS Routine 07/21/2024 6:18 EDT ESRD (end stage renal disease) ([facility]) documented in this encounter Visit Diagnoses Diagnosis ESRD (end stage renal disease) ([facility])- Primary End stage renal disease Hypoalbuminemia Other disorders of plasma protein metabolism Secondary hyperparathyroidism ([facility]) Secondary hyperparathyroidism (of renal origin) documented in this encounter Administered Medications Inactive Administered Medications - up to 3 most recent administrations Medication Order MAR Action Action Date Dose Rate Site acetaminophen (TYLENOL) tablet 650 mg 650 mg, oral, EVERY 4 HOURS PRN, Starting on Wed07/21/24 at 1047, Until Wed07/21/24 at 1608, Pain, Routine, DialysisIndications:ESRD (end stage renal disease) ([facility]) Given 07/21/2024 10:30 EDT 650 mg calcium carbonate (TUMS) tablet 500 mg (200 mg elemental calcium) 2 Tablet 2 Tablet, oral, ONCE IN DIALYSIS, 1 dose, On Wed07/21/24 at 0645, Routine, DialysisIndications:ESRD (end stage renal disease) ([facility]),Secondary hyperparathyroidism ([facility]) Given 07/21/2024 6:29 EDT 2 Tablets heparin injection 3,000 Units 3,000 Units, intravenous, ONCE IN DIALYSIS, 1 dose, On Wed07/21/24 at 0645, Routine, Dialysis, Now x1 bolus 1500 units to be given at the beginning of dialysis 500 units/hour to be given over the course of dialysis (3000 units total). Stop 1 hour prior to end of treatment. To be administered per Policy [id number].Indications:ESRD (end stage renal disease) ([facility]) Given 07/21/2024 6:46 EDT 3,000 Units LiquaCel liquid protein liquid 30 mL 30 mL, oral, ONCE IN DIALYSIS, 1 dose, On Wed07/21/24 at 0645, Patient's flavor preference: either, RoutineIndications:ESRD (end stage renal disease) ([facility]),Hypoalbuminemia Given 07/21/2024 6:29 EDT 30 mL documented in this encounter Orders Dialysis Count Last Ordered Date First Orde red Date HEMODIALYSIS 1 07/21/2024 documented in this encounter Care Teams Counter Waiter Relationship Specialty Start Date End Date Ken Greer [place] [address] [place] [address] PCP - General 07/07/23 Kiel Powers Director Customer Nephrology 05/31/24 documented as of this encounter
--- OUTSIDE RECORDS SUMMARY | 2024-12-05 11:59 | XMS_ITS | Encounter Summary ---
Author Organization [facility] Address [address] [place] [address] Care Team Providers Care Card Lacer Jacquard Name Role Phone Ken Greer MD Primary Care Provider Kiel Powers Unavailable Unavailable Encounter Details Date Type Department Care Team (Late st Contact Info) Description 07/31/2024 Orders Only [facility] [address] [place], [place] [id number] Yoanna Degroot, RN Social History Tobacco Use Types Packs/Day Years Used Date Smoking Tobacco: Every Day Cigarettes 1 26.1 Started: 1998 Smokeless Tobacco: Never Alcohol Use Standard Drinks/Week Comments Yes 0 (1 standard drink = 0.6 oz pur e alcohol) Socially [facility] Utilities Answer Date Recorded In the [...] your living situation today? I have a [facility] place [facility] live 05/30/2024 Think about [...] Info) Description 12/06/2024 6:45 EST Treatment [facility] [place] [address] [place], [place] [id number] Carlota Jin MD 1 [facility], Level [address] [place] [phone] 12/08/2024 6:45 EST Treatment [facility] [place] [address] [place], [place] [id number] Carlota Jin MD 1 [facility], Level [address] [place] [phone] 12/11/2024 6:45 EST Treatment [facility] [place] [address] [place], [place] [id number] Carlota Jin MD 1 [facility] [address] [place] [phone] 12/13/2024 6:45 EST Treatment [facility] [place] [address] [place], [place] [id number] Carlota Jin MD 1 [facility], [facility] [address] [place] [phone] 12/15/2024 6:45 EST Treatment [facility] [place] [address] [place] [address] Carlota Jin MD 1 [facility] [address] [place] [phone] 12/18/2024 6:45 EST Treatment [facility] [address] [place], [place] [id number] Carlota Jin MD [address] [facility], [facility] [address] [place] [phone] 12/20/2024 6:45 EST Treatment [facility] [place] [address] [place], [place] [id number] Carlota Jin MD 1 [facility], [facility] [address] [place] [phone] 12/22/2024 6:45 EST Treatment [facility] [place] [address] [place], [place] [id number] Carlota Jin MD 1 [facility], [facility] [address] [place] [phone] 12/25/2024 6:45 EST Treatment [facility] [place] [address] [place], [place] [id number] Carlota Jin MD 1 [facility], [facility] [address] [place] [phone] 12/27/2024 6:45 EST Treatment [facility] [place] [address] [place], [place] [id number] Carlota Jin MD 1 [facility], [facility] [address] [place] [phone] 12/29/2024 6:45 EST Treatment [facility] [place] [address] [place], [place] [id number] Carlota Jin MD 1 [facility], [facility] [address] [place] [phone] 01/01/2025 6:45 EDT Treatment [facility] [place] [address] [place], [place] [id number] Carlota Jin MD 1 [facility], [facility] [address] [place] [phone] 01/03/2025 6:45 EDT Treatment [facility] [place] [address] [place], [place] [id number] Carlota Jin MD [address] [facility], [facility] [address] [place] [phone] 01/05/2025 6:45 EDT Treatment [facility] [place] [address] [place], [place] [id number] Carlota Jin MD 1 [facility] [address] [place] [phone] 01/08/2025 6:45 EDT Treatment [facility] [place] [address] [place], [place] [id number] Carlota Jin MD 1 [facility], [facility] [address] [place] [phone] 01/10/2025 6:45 EDT Treatment [facility] [place] [address] [place], [place] [id number] Carlota Jin MD 1 [facility], [facility] [address] [place] [phone] 01/12/2025 6:45 EDT Treatment [facility] [address] [place], [place] [id number] Carlota Jni MD 1 [facility], [facility] [address] [place] [phone] 01/15/2025 6:45 EDT Treatment [facility] [place] [address] [place], [place] [id number] Carlota Jin MD 1 [facility] [address] [place] [phone] 01/17/2025 6:45 EDT Treatment [facility] [place] [address] [place], [place] [id number] Carlota Jin MD 1 [facility], [facility] [address] [place] [phone] 01/19/2025 6:45 EDT Treatment [facility] [place] [address] [place], [place] [id number] Carlota Jin MD 1 [facility], [facility] [address] [place] [phone] 01/22/2025 6:45 EDT Treatment [facility] [place] [address] [place], [place] [id number] Carlota Jin MD 1 [facility], [facility] [address] [place] [phone] 01/24/2025 6:45 EDT Treatment [facility] [place] [address] [place], [place] [address] Carlota Jin MD 1 [facility], [facility] [address] [place] [phone] 01/26/2025 6:45 EDT Treatment [facility] [place] [address] [place], [place] [id number] Carlota Jin MD 1 [facility], [facility] [address] [place] [phone] 01/29/2025 6:45 EDT Treatment [facility] [place] [address] [place], [place] [id number] Carlota Jin MD 1 [facility], [facility] [address] [place] [phone] 01/31/2025 6:45 EDT Treatment [facility] [place] [address] [place] [address] Carlota Jin MD 1 [facility], [address] [phone] 02/02/2025 6:45 EDT Treatment [facility] [place] [address] [place], [place] [id number] Carlota Jin MD 1 [facility], [address] [phone] 02/05/2025 6:45 EDT Treatment [facility] [place] [address] [place], [place] [id number] Carlota Jin MD 1 [facility], [address] [phone] 02/07/2025 6:45 EDT Treatment [facility] [place] [address] [place], [place] [id number] Carlota Jin MD 1 [facility], [facility] [address] [place] [phone] 02/09/2025 6:45 EDT Treatment [facility] [place] [address] [place], [place] [id number] Carlota Jin MD 1 [facility], [facility] 2 [place] [phone] 02/12/2025 6:45 EDT Treatment [facility] [place] [address] [place], [place] [id number] Carlota Jin MD 1 [facility], [address] [phone] 02/14/2025 6:45 EDT Treatment [facility] [place] [address] [place], [place] [id number] Carlota Jin MD [address] [place] [phone] 02/16/2025 6:45 EDT Treatment [facility] [place] [address] [place], [place] [address] [phone] Carlota Jin MD [address] [place] [phone] 02/19/2025 6:45 EDT Treatment [facility] [place] [address] [place], [place] [id number] Carlota Jin MD [address] [place] [phone] 02/21/2025 6:45 EDT Treatment [facility] [place] [address] [place], [place] [id number] Carlota Jin MD [address] [phone] documented as of this encounter Visit Diagnoses Not on filedocumented in this encounter Care Teams Card Lacer Jacquard Relationship Specialty Start Date End Date Ken Greer MD [address] [place] [address] PCP - General 07/07/23 Kiel Powers Crochet Machine Operator Nephrology 05/31/24 documented as of this encounter
--- OUTSIDE RECORDS SUMMARY | 2024-12-05 12:00 | XMS_ITS | Encounter Summary ---
Author Organization [facility] Address [address] [place] [address] Care Team Providers Care Auto Service Instructor Name Role Phone Ken Greer MD Primary Care Provider [phone] Kiel oPwers Unavailable Unavailable Encounter Details Date Type Department Care Team (Late st Contact Info) Description 07/05/2024 Documentation Visit [facility] [address] [place], [place] [id number] Marcela Cox, RN Social History Tobacco Use Types Packs/Day Years Used Date Smoking Tobacco: Every Day Cigarettes 1 26.1 Started: 1998 Smokeless Tobacco: Never Alcohol Use Standard Drinks/Week Comments Yes 0 (1 standard drink = 0.6 oz pur e alcohol) Socially [facility] Utilities Answer Date Recorded In the [...] your living situation today? I have a [facility] place to live 05/30/2024 Think about the [...] Progress Notes * Marcela Cox RN - 07/05/2024 1121 EDT 07/05/24 11:23 [facility] DIALYS[facility] MEDICATION RECONCILIATION Medication review of home medications (prescriptions, vnke-jys-ytdfaue, herbals, vitamin/mineral/dietary (nutritional) supplements, medical marijuana, and [...] tablet sevelamer carbonate (RENVELA) 800 mg tablet tiZANidine (ZANAFLEX) 4 mg tablet No current facility-administered medications for this visit. Marcela Cox RN documented in this encounter Plan of Treatment Upcoming Encounters Date Type Department Care Team (Late st Contact Info) Description 12/06/2024 6:45 EST Treatment [facility] [place], [place] [phone] Carlota Jin MD [address] [place] [address], [facility] [address] [place] [address] 12/08/2024 6:45 EST Treatment [facility] [address] [place], [place] [phone] Carlota Jin MD [address] [place] [address], [facility] [address] [place] [address] 12/11/2024 6:45 EST Treatment [facility] [address] [place], [place] [address] Carlota Jin MD 1 [facility], [facility] [address] [place] [phone] 12/13/2024 6:45 EST Treatment [facility] [address] [place] [address] Carlota Jin MD 1 [facility], [facility] [address] [place] [phone] 12/15/2024 6:45 EST Treatment [facility] [address] [place], [place] [phone] Carlota Jin MD 1 [facility], [address] [phone] 12/18/2024 6:45 EST Treatment [facility] [address] [place], [place] [phone] Carlota Jin MD 1 [facility], [address] [phone] 12/20/2024 6:45 EST Treatment [facility] [address] [place], [place] [phone] Carlota Jin MD 1 [facility], [facility] [address] [place] [phone] 12/22/2024 6:45 EST Treatment [facility] [address] [place], [place] [phone] Carlota Jin MD 1 [facility], [facility] [address] [place] [phone] 12/25/2024 6:45 EST Treatment [facility] [address] [place], [place] [phone] Carlota Jin MD 1 [facility], [facility] [address] [place] [phone] 12/27/2024 6:45 EST Treatment [facility] [address] [place] [address] Carlota Jin MD 1 [facility], [facility] [address] [place] [phone] 12/29/2024 6:45 EST Treatment [facility] [address] [place] [address] Carlota Jin MD 1 [facility], [facility] [address] [place] [phone] 01/01/2025 6:45 EDT Treatment [facility] [address] [place] [address] Carlota Jin MD 1 [facility], [facility] [address] [place] [phone] 01/03/2025 6:45 EDT Treatment [facility] [address] [place], [place] [phone] Carlota Jin MD 1 [facility], [facility] [address] [place] [phone] 01/05/2025 6:45 EDT Treatment [facility] [address] [place], [place] [address] Carlota Jin MD 1 [facility], [address] [phone] 01/08/2025 6:45 EDT Treatment [facility] [address] [place], [place] [phone] Carlota Jin MD 1 [facility], [address] [phone] 01/10/2025 6:45 EDT Treatment [facility] [address] [place], [place] [phone] Carlota Jin MD 1 [facility], [address] [phone] 01/12/2025 6:45 EDT Treatment [facility] [address] [place], [place] [phone] Carlota Jin MD [address] [phone] 01/15/2025 6:45 EDT Treatment [facility] [address] [place], [place] [phone] Carlota Jin MD [address] [phone] 01/17/2025 6:45 EDT Treatment [facility] [address] [place], [place] [phone] Carlota Jin MD 1 [facility], [address] [phone] 01/19/2025 6:45 EDT Treatment [facility] [address] [place], [place] [phone] Carlota iJn MD 1 [facility], [facility] 2 [place] [phone] 01/22/2025 6:45 EDT Treatment [facility] [address] [place], [place] [phone] Carlota Jin MD 1 [facility], [facility] 2 [place] [phone] 01/24/2025 6:45 EDT Treatment [facility] [address] [place], [place] [phone] Carlota Jin MD 1 [facility], [address] [phone] 01/26/2025 6:45 EDT Treatment [facility] [address] [place] [address] Carlota Jin MD 1 [facility], [facility] [address] [place] [phone] 01/29/2025 6:45 EDT Treatment [facility] [address] [place], [place] [phone] Carlota Jin MD 1 [facility], [facility] 2 [place] [phone] 01/31/2025 6:45 EDT Treatment [facility] [address] [place], [place] [phone] Carlota Jin MD 1 [facility], [facility] 2 [place] [phone] 02/02/2025 6:45 EDT Treatment [facility] [address] [place], [place] [phone] Carlota Jin MD 1 [facility], [address] [phone] 02/05/2025 6:45 EDT Treatment [facility] [address] [place], [place] [phone] Carlota Jin MD 1 [facility], [address] [phone] 02/07/2025 6:45 EDT Treatment [facility] [address] [place], [place] [phone] Carlota Jin MD 1 [facility], [address] [phone] 02/09/2025 6:45 EDT Treatment [facility] [address] [place], [place] [phone] Carlota Jin MD 1 [facility], [address] [phone] 02/12/2025 6:45 EDT Treatment [facility] [address] [place], [place] [phone] Carlota Jin MD 1 [facility], [facility] 2 [place] [phone] 02/14/2025 6:45 EDT Treatment [facility] [address] [place], [place] [phone] Carlota Jin MD 1 [facility], [facility] 2 [place] [phone] 02/16/2025 6:45 EDT Treatment [facility] [address] [place], [place] [phone] Carlota Jin MD 1 [facility], [address] [phone] 02/19/2025 6:45 EDT Treatment [facility] [address] [place], [place] [phone] Carlota Jin MD 1 [facility], [address] [phone] 02/21/2025 6:45 EDT Treatment [facility] [address] [place], [place] [id number] Carlota Jin MD 1 [facility], [address] [phone] documented as of this encounter Visit Diagnoses Not on filedocumented in this encounter Care Teams Auto Service Instructor Relationship Specialty Start Date End Date [place] [address] PCP - General 07/07/23 Kiel Powers Clay Machine Operator Nephrology 05/31/24 documented as of this encounter
--- OUTSIDE RECORDS SUMMARY | 2024-12-05 12:00 | XMS_ITS | Encounter Summary ---
Author Organization [facility] Address [address] [place] [address] Care Team Providers Care Roundhouse Firer/Fireman Name Role Phone Ken Greer MD Primary Care Provider [phone] Kiel Powers Unavailable Unavailable Reason for Visit * Episode Based Medications (Routine) - New Request Specialty Diagnoses / Procedures Referred By Nader gardiner Referred To Contact Diagnoses ESRD (end stage renal disease) ([facility]) Carlota Jin MD [address] [place] [address] [address] [place] [address] Phone: tel: fax: [facility] [place] [address] [place] [address] Phone: tel: fax: Referral ID Status Reason Start Date Expiration Date V isits Requested Visits Authorized [id number] New Request 03/17/2024 1 1 Encounter Details Date Type Department Care Team (Latest Contact Info) Description 07/07/2024 6:45 EDT Treatment [facility] [address] [place], [place] [phone] Carlota Jin MD [address] [place] [address], [facility] [address] [place] [phone] ESRD (end stage renal disease) ([facility]) (Primary Dx); Hypoalbuminemia; Secondary hyperparathyroidism ([facility]) Social History Tobacco Use Types [...] the past 12 months has th e [employer], gas, oil, or water [employer] threatened to shut off services in your [...] - Temperature - - Respiratory Rate 16 07/07/2024 0621 EDT Oxygen Saturation - - Inhaled Oxygen Concentration - - Weight 80.4 kg (177 lb 4 oz) 07/07/2024 0628 EDT Height - - Body Mass Index 25.43 12/20/2023 2202 EST documented in this encounter Functional Status * [...] times daily with meals. 810 Tablet 3 07/07/2024 5 documented in this encounter Miscellaneous Notes * Flowsheet Note - Marcela Cox RN - 07/07/2024 1304 EDT 07/07/24 1046 Post-Hemodialysis Assessment Total Blood Processed (L) 90.11 Liters On Line Clearance: spKt/V 1.52 spKt/V Dialyzer Clearance Lightly streaked Treatment UFR (ml:kg:hr) 15.89 ml:kg:hr Final Critline Profile (%/hr) -0.91 Final Profile Profile A Critline refill Not done Fluid Removed (L) 5 L Post-Dialysis Scale Weight 94.5 kg (208 lb 5.4 oz) Wheelchair Weight 19 kg (41 lb 14.2 oz) Prosthesis Weight 0 kg (0 lb) Post-Treatment Weight (kg) 75.5 Treatment Weight Change (kg) 4.9 kg Day Target Weight (kg) 76.4 Post Sitting/Lying BP 156/78 Post Sitting/Lying pulse 64 Temp 36.8 ??C (98.2 ??F) Temp src Temporal Minutes Short -245 Post access assessment AVF/AFG Hemostasis achieved Yes Note pt held with blue clamps for 10 minutes. Venous site had excess bleeding due to the placement of the clamp. Clamp was removed, new bandage placed and this resolved. Orientation Alert and Oriented x3 Yes Time Yes Place Yes Person Yes Cooperative Yes Disoriented No Discharge Ambulation Methods Departs via w/c Wrap up items Patient Response to Treatment Tolerated tx well. Removed 5L UF goal without difficulty. UF goal adjusted per crit line, vital signs and pt tolerance. Comments No issues during tx, no concerns voiced post tx. documented in this encounter Plan of Treatment Upcoming Encounters Date Type Department Care Team (Late st Contact Info) Description 12/06/2024 6:45 EST Treatment [facility] [address] [place], [place] [phone] Carlota Jin MD [address] [place] [phone] 12/08/2024 6:45 EST Treatment [facility] [address] [place], [place] [phone] Carlota Jin MD [address] [place] [phone] 12/11/2024 6:45 EST Treatment [facility] [address] [place], [place] [id number] Carlota Jin MD [address] [place] [phone] 12/13/2024 6:45 EST Treatment [facility] [address] [place], [place] [id number] Carlota Jin MD [address] [place] [phone] 12/15/2024 6:45 EST Treatment [facility] [place] [address] [place], [place] [phone] Carlota Jin MD 1 [facility], [facility] 2 [place] [phone] 12/18/2024 6:45 EST Treatment [facility] [place] [address] [place], [place] [phone] Carlota Jin MD 1 [facility], [facility] 2 [place] [phone] 12/20/2024 6:45 EST Treatment [facility] [address] [place], [place] [phone] Carlota Jin MD 1 [facility], [facility] 2 [place] [phone] 12/22/2024 6:45 EST Treatment [facility] [place] [address] [place], [place] [phone] Carlota Jin MD 1 [facility], [facility] [address] [place] [phone] 12/25/2024 6:45 EST Treatment [facility] [place] [address] [place], [place] [phone] Carlota Jin MD 1 [facility], [facility] [address] [place] [phone] 12/27/2024 6:45 EST Treatment [facility] [address] [place] [address] Carlota Jin MD 1 [facility], [facility] [address] [place] [phone] 12/29/2024 6:45 EST Treatment [facility] [address] [place], [place] [phone] Carlota Jin MD 1 [facility], [facility] [address] [place] [phone] 01/01/2025 6:45 EDT Treatment [facility] [place] [address] [place] [address] Carlota Jin MD 1 [facility], [address] [phone] 01/03/2025 6:45 EDT Treatment [facility] [place] [address] [place], [place] [id number] Carlota Jin MD 1 [facility], [address] [phone] 01/05/2025 6:45 EDT Treatment [facility] [place] [address] [place] [address] Carlota Jin MD 1 [facility], [facility] [address] [place] [phone] 01/08/2025 6:45 EDT Treatment [facility] [place] [address] [place], [place] [phone] Carlota Jin MD 1 [facility], [facility] 2 [place] [phone] 01/10/2025 6:45 EDT Treatment [facility] [address] [place], [place] [phone] Carlota Jin MD 1 [facility], [facility] 2 [place] [phone] 01/12/2025 6:45 EDT Treatment [facility] [address] [place], [place] [phone] Carlota Jin MD 1 [facility], [address] [phone] 01/15/2025 6:45 EDT Treatment [facility] [place] [address] [place], [place] [id number] Carlota Jin MD 1 [facility], [address] [phone] 01/17/2025 6:45 EDT Treatment [facility] [place] [address] [place], [place] [address] Carlota Jin MD 1 [facility], [facility] 2 [place] [phone] 01/19/2025 6:45 EDT Treatment [facility] [place] [address] [place], [place] [phone] Carlota Jin MD 1 [facility], [facility] [address] [place] [phone] 01/22/2025 6:45 EDT Treatment [facility] [place] [address] [place], [place] [address] Carlota Jin MD 1 [facility], [address] [phone] 01/24/2025 6:45 EDT Treatment [facility] [address] [place] [address] Carlota Jin MD 1 [facility], [address] [phone] 01/26/2025 6:45 EDT Treatment [facility] [address] [place], [place] [id number] Carlota Jin MD 1 [facility], [address] [phone] 01/29/2025 6:45 EDT Treatment [facility] [address] [place], [place] [phone] Carlota Jin MD 1 [facility], [address] [phone] 01/31/2025 6:45 EDT Treatment [facility] [place] [address] [place], [place] [phone] Carlota Jin MD 1 [facility], [address] [phone] 02/02/2025 6:45 EDT Treatment [facility] [place] [address] [place], [place] [id number] Carlota Jin MD 1 [facility], [facility] 2 [place] [phone] 02/05/2025 6:45 EDT Treatment [facility] [place] [address] [place], [place] [id number] Carlota iJn MD 1 [facility], [facility] 2 [place] [phone] 02/07/2025 6:45 EDT Treatment [facility] [place] [address] [place], [place] [id number] Carlota Jin MD 1 [facility], [address] [phone] 02/09/2025 6:45 EDT Treatment [facility] [address] [place], [place] [id number] Carlota Jin MD [address] [place] [address], [address] [phone] 02/12/2025 6:45 EDT Treatment [facility] [place] [address] [place], [place] [id number] Carlota Jin MD 1 [facility], [facility] 2 [place] [phone] 02/14/2025 6:45 EDT Treatment [facility] [place] [address] [place], [place] [id number] Carlota Jin MD 1 [facility], [facility] 2 [place] [phone] 02/16/2025 6:45 EDT Treatment [facility] [place] [address] [place], [place] [id number] Carlota Jin MD 1 [facility], [address] [phone] 02/19/2025 6:45 EDT Treatment [facility] [place] [address] [place], [place] [id number] Carlota Jin MD 1 [facility], [address] [phone] 02/21/2025 6:45 EDT Treatment [facility] [address] [place], [place] [id number] Carlota Jin MD 1 [facility], [address] [phone] documented as of this encounter Procedures Procedure Name Priority Date/Time Associated Diagnosis Comments HEMODIALYSIS Routine 07/07/2024 6:21 EDT ESRD (end stage renal disease) ([facility]) documented in this encounter Visit Diagnoses Diagnosis ESRD (end stage renal disease) ([facility])- Primary End stage renal disease Hypoalbuminemia Other disorders of plasma protein metabolism Secondary hyperparathyroidism ([facility]) Secondary hyperparathyroidism (of renal origin) documented in this encounter Administered Medications Inactive Administered Medications - up to 3 most recent administrations Medication Order MAR Action Action Date Dose Rate Site acetaminophen (TYLENOL) tablet 650 mg 650 mg, oral, EVERY 4 HOURS PRN, Starting on Wed07/07/24 at 1056, Until Wed07/07/24 at 1504, Pain, Routine, DialysisIndications:ESRD (end stage renal disease) ([facility]) Given 07/07/2024 10:56 EDT 650 mg calcium carbonate (TUMS) tablet 500 mg (200 mg elemental calcium) 2 Tablet 2 Tablet, oral, ONCE IN DIALYSIS, 1 dose, On Wed07/07/24 at 0645, Routine, DialysisIndications:ESRD (end stage renal disease) ([facility]),Secondary hyperparathyroidism ([facility]) Given 07/07/2024 6:44 EDT 2 Tablets heparin injection 5,000 Units 5,000 Units, intravenous, ONCE IN DIALYSIS, 1 dose, On Wed07/07/24 at 0645, Routine, Dialysis, Now x1 bolus 2600 units to be given at the beginning of dialysis 800 units/hour to be given over the course of dialysis (5000 units total). Stop 1 hour prior to end of treatment. To be administered per Policy [id number].Indications:ESRD (end stage renal disease) ([facility]) Given 07/07/2024 6:45 EDT 5,000 Units LiquaCel liquid protein liquid 30 mL 30 mL, oral, ONCE IN DIALYSIS, 1 dose, On Wed07/07/24 at 0645, Patient's flavor preference: either, RoutineIndications:ESRD (end stage renal disease) ([facility]),Hypoalbuminemia Given 07/07/2024 6:44 EDT 30 mL documented in this encounter Discontinued Medications Medication Sig Discontinue Reason Start Date End Da te sevelamer carbonate (RENVELA) 800 mg tablet Take 2 Tablets by mouth 3 times daily with meals. Reorder 05/01/2024 07/07/2024 documented as of this encounter Orders Dialysis Count Last Ordered Date First Orde red Date HEMODIALYSIS 1 07/07/2024 documented in this encounter Care Teams Roundhouse Firer/Fireman Relationship Specialty Start Date End Date Ken Greer MD [address] [place] [address] PCP - General 07/07/23 Kiel Poewrs Machine Plug Shaper Nephrology 05/31/24 documented as of this encounter
--- OUTSIDE RECORDS SUMMARY | 2024-12-05 12:00 | XMS_ITS | Encounter Summary ---
Author Organization [facility] Address [address] [place] [address] Care Team Providers Care Electric Meter Repairer Apprentice Name Role Phone Ken Greer MD Primary Care Provider [phone] Kiel Powers Unavailable Unavailable Encounter Details Date Type Department Care Team (Late st Contact Info) Description 07/11/2024 Orders Only [facility] [address] [place], [place] [id number] Skye Gomez, METAL PRECISION MACHINE ASSEMBLER 1 [facility], [address] [place] [address] Social History Tobacco Use Types Packs/Day Years Used Date Smoking Tobacco: Every Day Cigarettes 1 26.1 Started: 1998 Smokeless Tobacco: Never Alcohol Use Standard Drinks/Week Comments Yes 0 (1 standard drink = 0.6 oz pur e alcohol) Socially [facility] Utilities Answer Date Recorded In the past 12 months has e [employer] ([employer]), gas, oil, or water [employer] threatened to shut off services in your [...] your living situation today? I have a [facility] place to live 05/30/2024 Think [...] of Assessment Author No 05/30/2024 18:25 EDDaria Whitifeld RN * Do you have serious difficulty [...] Last Filled Start Date End Date sodium polystyrene (KAYEXALATE) powder Take 15 g by mouth SEE ADMIN INSTRUCTIONS. Take 15 grams in water once daily on non dialysis days 453.6 g 2 07/11/2024 documented in this encounter Plan of Treatment Upcoming Encounters Date Type Department Care Team (Late st Contact Info) Description 12/06/2024 6:45 EST Treatment [facility] [address] [place], [place] [address] Carlota Jin MD 1 [facility], [facility] [address] [place] [phone] 12/08/2024 6:45 EST Treatment [facility] [place] [address] [place] [address] Carlota Jin MD 1 [facility], [facility] [address] [place] [phone] 12/11/2024 6:45 EST Treatment [facility] [place] [address] [place], [place] [id number] Carlota Jin MD 1 [facility], [address] [phone] 12/13/2024 6:45 EST Treatment [facility] [place] [address] [place], [place] [id number] Carlota Jin MD 1 [facility], [address] [phone] 12/15/2024 6:45 EST Treatment [facility] [place] [address] [place], [place] [id number] Carlota Jin MD 1 [facility], [facility] [address] [place] [phone] 12/18/2024 6:45 EST Treatment [facility] [place] [address] [place], [place] [id number] Carlota Jin MD 1 [facility], [facility] [address] [place] [phone] 12/20/2024 6:45 EST Treatment [facility] [place] [address] [place], [place] [id number] Carlota Jin MD 1 [facility], [address] [place] [phone] 12/22/2024 6:45 EST Treatment [facility] [place] [address] [place], [place] [id number] Carlota Jin MD 1 [facility], [facility] [address] [place] [phone] 12/25/2024 6:45 EST Treatment [facility] [place] [address] [place] [address] Carlota Jin MD 1 [facility], [facility] [address] [place] [phone] 12/27/2024 6:45 EST Treatment [facility] [place] [address] [place] [address] Carlota Jin MD 1 [facility], [address] [place] [phone] 12/29/2024 6:45 EST Treatment [facility] [address] [place], [place] [id number] Carlota Jin MD 1 [facility], [address] [place] [phone] 01/01/2025 6:45 EDT Treatment [facility] [place] [address] [place], [place] [address] Carlota Jin MD 1 [facility], [address] [phone] 01/03/2025 6:45 EDT Treatment [facility] [place] [address] [place] [address] Carlota Jin MD 1 [facility], [address] [phone] 01/05/2025 6:45 EDT Treatment [facility] [place] [address] [place], [place] [id number] Carlota Jin MD 1 [facility], [address] [phone] 01/08/2025 6:45 EDT Treatment [facility] [place] [address] [place], [place] [id number] Carlota Jin MD [address] [phone] 01/10/2025 6:45 EDT Treatment [facility] [place] [address] [place], [place] [id number] Carlota Jin MD [address] [phone] 01/12/2025 6:45 EDT Treatment [facility] [place] [address] [place], [place] [id number] Carlota Jin MD 1 [facility], [facility] [address] [place] [phone] 01/15/2025 6:45 EDT Treatment [facility] [place] [address] [place], [place] [id number] Carlota Jin MD 1 [facility], [facility] [address] [place] [phone] 01/17/2025 6:45 EDT Treatment [facility] [place] [address] [place], [place] [id number] Carlota Jin MD 1 [facility], [facility] [address] [place] [phone] 01/19/2025 6:45 EDT Treatment [facility] [place] [address] [place], [place] [id number] Carlota Jin MD 1 [facility], [facility] [address] [place] [phone] 01/22/2025 6:45 EDT Treatment [facility] [place] [address] [place], [place] [id number] Carlota Jin MD 1 [facility], [facility] [address] [place] [phone] 01/24/2025 6:45 EDT Treatment [facility] [place] [address] [place], [place] [id number] Carlota Jin MD 1 [facility], [facility] [address] [place] [phone] 01/26/2025 6:45 EDT Treatment [facility] [place] [address] [place], [place] [id number] Carlota Jin MD 1 [facility], [facility] [address] [place] [phone] 01/29/2025 6:45 EDT Treatment [facility] [place] [address] [place], [place] [phone] Carlota Jin MD 1 [facility], [facility] [address] [place] [phone] 01/31/2025 6:45 EDT Treatment [facility] [place] [address] [place], [place] [id number] Carlota Jin MD 1 [facility], [address] [phone] 02/02/2025 6:45 EDT Treatment [facility] [place] [address] [place], [place] [id number] Carlota Jin MD 1 [facility], [address] [phone] 02/05/2025 6:45 EDT Treatment [facility] [place] [address] [place], [place] [id number] Carlota Jin MD 1 [facility], [facility] [address] [place] [phone] 02/07/2025 6:45 EDT Treatment [facility] [place] [address] [place], [place] [phone] Carlota Jin MD 1 [facility], [address] [place] [phone] 02/09/2025 6:45 EDT Treatment [facility] [place] [address] [place], [place] [address] Carlota Jin MD 1 [facility], [facility] [address] [place] [phone] 02/12/2025 6:45 EDT Treatment [facility] [place] [address] [place], [place] [id number] Carlota Jin MD 1 [facility], [facility] [address] [place] [phone] 02/14/2025 6:45 EDT Treatment [facility] [place] [address] [place], [place] [address] Carlota Jin MD 1 [facility], [facility] [address] [place] [phone] 02/16/2025 6:45 EDT Treatment [facility] [place] [address] [place] [address] Carlota Jin MD 1 [facility], [facility] [address] [place] [phone] 02/19/2025 6:45 EDT Treatment [facility] [place] [address] [place], [place] [address] Carlota Jin MD 1 [facility], [facility] [address] [place] [phone] 02/21/2025 6:45 EDT Treatment [facility] [place] [address] [place], [place] [address] Carlota Jin MD 1 [facility], [address] [place] [phone] documented as of this encounter Visit Diagnoses Not on filedocumented in this encounter Care Teams Electric Meter Repairer Apprentice Relationship Specialty Start Date End Date Ken Greer MD [address] [place] [address] PCP - General 07/07/23 Kiel Powers Meat Dresser Nephrology 05/31/24 documented as of this encounter
--- OUTSIDE RECORDS SUMMARY | 2024-12-05 12:00 | XMS_ITS | Encounter Summary ---
Author Organization [facility] Address [address] [place] [address] Care Team Providers Care Special Crimes Investigator Name Role Phone Ken Greer MD Primary Care Provider [phone] Kiel Powers Unavailable Unavailable Reason for Visit * Episode Based Medications (Routine) - New Request Specialty Diagnoses / Procedures Referred By Nader gardiner Referred To Contact Diagnoses ESRD (end stage renal disease) ([facility]) Carlota Jin MD [address] [place] [phone] Phone: tel: fax: [facility] [place] [address] [place] [address] Phone: tel: fax: Referral ID Status Reason Start Date Expiration Date V isits Requested Visits Authorized [id number] New Request 03/17/2024 1 1 Encounter Details Date Type Department Care Team (Latest Contact Info) Description 07/19/2024 6:45 EDT Treatment [facility] [address] [place], [place] [phone] Carlota Jin MD [address] [place] [address], [facility] [address] [place] [phone] ESRD (end stage renal disease) ([facility]) (Primary Dx); Hypoalbuminemia; Secondary hyperparathyroidism ([facility]) Social History Tobacco Use Types Packs/Day Years Used Date Smoking Tobacco: Every Day Cigarettes 1 26.1 Started: 1998 Smokeless Tobacco: Never Alcohol Use Standard Drinks/Week Comments Yes 0 (1 standard drink = 0.6 oz pur e alcohol) Socially [facility] Utilities Answer Date Recorded In the [...] any time in the past 12 m [facility], were you homeless or living [...] the past 12 months has th e Noah, gas, oil, or water [employer] threatened to shut off services in your [...] - Temperature - - Respiratory Rate 16 07/19/2024 0626 EDT Oxygen Saturation - - Inhaled Oxygen Concentration - - Weight 77.7 kg (171 lb 4.8 oz) 07/19/2024 0631 E DT Height - - Body Mass Index 24.58 12/20/2023 2202 EST documented in this encounter [...] Flowsheet Note - Marcela Cox RN - 07/19/2024 1257 EDT 07/19/24 1057 Post-Hemodialysis Assessment Total Blood Processed (L) 91.02 Liters On Line Clearance: spKt/V 1.6 spKt/V Dialyzer Clearance Lightly streaked Treatment UFR (ml:kg:hr) 8.58 ml:kg:hr Final Critline Profile (%/hr) -0.84 Final Profile Profile A Critline refill Negative (34.6-34.4) Fluid Removed (L) 2.7 L Post-Dialysis Scale Weight 94.1 kg (207 lb 7.3 oz) Wheelchair Weight 19 kg (41 lb 14.2 oz) Prosthesis Weight 0 kg (0 lb) Post-Treatment Weight (kg) 75.1 Treatment Weight Change (kg) 2.6 kg Day Target Weight (kg) 75.5 Post Sitting/Lying BP (!) 180/92 Post Sitting/Lying pulse 64 Temp 36.7 ??C (98.1 ??F) Temp src Temporal Minutes Short -242 Post access assessment AVF/AFG Hemostasis achieved Yes Note 10 minute hold both sites Orientation Alert and Oriented x3 Yes Time Yes Place Yes Person Yes Cooperative Yes Disoriented No Discharge Ambulation Methods Departs via w/c Wrap up items Patient Response to Treatment Tolerated tx well. Removed 2.7L UF goal without difficulty. Comments No issues during tx, no concerns voiced post tx. * Dialysis Comprehensive - Skye Gomez POSTBED STITCHER - 07/19/2024 0645 EDT Images from the original note were not included. 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 associated with type 2diabetes mellitus ([facility]) ESRD (end stage renal disease) ([facility]) Primary hypertension [I10] Hearing loss Herniation of lumbar intervertebral disc with radiculopathy Hyperlipidemia Proteinuria Right sided numbness Secondary hyperparathyroidism ([facility]) TIA (transient ischemic attack) Type II or unspecified type diabetes mellitus with neurological manifestations, uncontrolled(250.62) Encounter for immunization Hypoalbuminemia Anemia of chronic renal failure Abnormal albumin Cellulitis and abscess of foot, except toes Encounter for therapeutic drug monitoring Diabetic foot infection ([facility]) [E11.628, L08.9] COVID Type 2 diabetes mellitus with chronic kidney disease on chronic dialysis, with long-term current use of insulin ([facility]) [E11.22, N18.6, Z99.2, Z79.4] Anemia of chronic renal failure, stage 5 ([facility]) [N18.5, D63.1] ESRD on hemodialysis ([facility]) Atrial fibrillation and flutter ([facility]) Anemia in chronic kidney disease Anxiety and depression GERD (gastroesophageal reflux disease) Nicotine dependence, cigarettes, uncomplicated Non-healing open wound of heel Olecranon bursitis, right elbow Osteoarthrosis Peripheral neuropathy Retinopathy Sciatica Smoker Type 2 diabetes mellitus with diabetic neuropathy, unspecified ([facility]) Secondary hyperparathyroidism of renal origin ([facility]) Diabetes mellitus ([facility]) Treatment Modality: Patient received information regarding treatment options: Yes Patient is interested in pursuing a different modality: No Patient is a home dialysis candidate: No Patient Treatment Choice: Hemodialysis, Incenter Plan: Continue current modality. Transplantation: Patient Had Prior Transplant: No 12/16/2022 12:29 10/01/2023 12:02 Transplant Status Referral Status Declines Requests Meets Criteria at Center? No N/A Info Sent? No Yes Workup in Progress? No N/A Transplant Candidate? No N/A On Active Transplant List? No No Listing On-Hold? No No Transplant Center [facility] Comments Patient does not meet transplant criteria due to daily smoking cigarettes pt referred to transplant @ [facility] Current Dialysis Prescription: Hemodialysis Therapy Plan In-Center [...] with Nursing: Yes Average Interdialytic Fluid Gains: 07/14/2024 6:26 07/14/2024 10:40 07/17/2024 6:18 07/17/2024 6:21 07/17/2024 10:16 07/19/2024 6:26 07/19/2024 6:31 InterDialytic +/- Gain/Loss 3.5 4.6 4.6 2.5 2.5 Wt (pre) 78.6 79.7 79.7 77.7 77.7 Wt (post) 75.1 75.2 Treatment UFR (ml:kg:hr) 11.51 ml:kg:hr 16.32 ml:kg:hr BP (post) 199/79 196/81 196/81 201/103 201/103 Pulse(post) 72 70 70 68 68 Resp (/min) 16 16 Volume and blood pressure have been addressed with the following changes: None, will try to continue to reach PW Consistently able to achieve estimated dry weight? No: large fluid gains Blood pressure is in range for patient? Yes Any adverse intradialytic symptoms? Yes: occ cramping Plan: Managed per protocol Physical Exam Constitutional Somnolent, no distress Respiratory: CTAB Cardiac: distant Abdomen: soft Extremities: B/l LE amputation; no pitting edema Hospitalization Hospitalization in Previous 1 Month: Yes: HOSPITAL MEDICINE DISCHARGE SUMMARY Primary Care Provider: Ken Greer Attending Physician: Melissa Elena MD Admit Date: 05/30/24 Discharge Date: 05/31/24 Disposition (location): Home Condition at Discharge: Stable Reason for Admission (chief complaint): Acute dyspnea Principal/Final Diagnosis: Acute hypoxic respiratory failure ([facility]) Additional Problems Managed in the Hospital: Active Hospital Problems Diagnosis Date Noted *Acute hypoxic respiratory failure (H[facility]-CMS) 05/30/2024 Diabetes mellitus ([facility]) 05/31/2024 Hypoglycemia 05/31/2024 Atrial fibrillation and flutter ([facility]) 12/21/2023 Resolved Hospital Problems No resolved problems to display. Transition of care: [facility] Transition of Care report automatically routed to PCP office on discharge. Clinical Issues Needing Follow-up 1. Pertinent medication changes: None 2. Recommended follow-up tests/procedures needed: None 3. Anticoagulation on discharge: Yes - continuation of prior to admission therapy WITHOUT changes Indication(s): Atrial fibrillation Medication: DOAC apixaban 4. Changes to goals of care at time of discharge (if applicable): None Hospital Course: Gerson is a pleasant 58-year-old male with a past medical history of paroxysmal A-fib (on diltiazem, carvedilol and apixaban at home), end-stage renal disease (on hemodialysis M/W/F), insulin-dependent type 2 diabetes mellitus, PAD (status post bilateral BKAs in 2023) HTN, HLD, Hx of TIA (2017), anxiety disorder who presented as a direct admit from [facility] ED for dyspnea shortly after hemodialysis session on Tuesday 05/29. Reportedly during this hemodialysis session 4 L of fluid were taken off, shortly after finishing hereportedly became tachycardic to the 140s, which was read as atrial flutter on EKG. He was given diltiazem bolus with improvement to 80 bpm in sinus rhythm. Reportedly also at the outside ED patient had a 5 beat asymptomatic run of NSVT. Blood glucose also down to 30 this AM which improved with D50. Patient was directly admitted from outside ED as he was due for hemodialysis session on 05/31. At time of admission his shortness of breath had much improved. His only complaint was lingering right lower extremity pain at the bilateral knee amputation site. The morning of 05/31 he continued to be asymptomatic and was titrated off of oxygen completely. Saturating well on room air. Suspected that the etiology of his acute onset shortness of breath was likely his atrial fibrillation, as dyspnea resolved spontaneously once A-fib was controlled with diltiazem. On 05/31/2024 he underwent hemodialysis. Hewas stable following dialysis and was discharged with no changes to his home medications. Relevant Imaging/Procedures Performed: Hemodialysis session 05/31/2024 Results Pending at Discharge: Test results still pending from this admission None Please Note: Does not include future Hemodialysis appointments. Please use Chart Review-Encounters to see future scheduled Hemodialysis appointments. Upcoming Appointments Jul 20, 2024 14:00 Pre Transplant Evaluation with Juan Cleveland MD [facility] Trans[facility] [place] (--) 1 [facility] [id number] Jul 20, 2024 15:00 Pre Transplant Evaluation with TRANSPLANT, NEPHROLOGY [facility] Transplant - [place] (--) 1 [facility] [address] [facility], Internal Medicine PGY-1 Epic secure chat or [phone] 05/31/24 10:29 Attending Attestation I interviewed and examined the patient. I have personally reviewed interval events, laboratory data, and imaging. I discussed the case with the resident team and agree with the plan of care as documented in the resident discharge summary above. The patient is medically stable for discharge today. Ireviewed the discharge instructions and follow up plan with the patient. I personally spent >30 minutes reviewing the chart, evaluating and examining the patient, and counseling and preparing the patient for discharge. Dos 05/31/24 Melissa Elena MD 06/01/2024 7:53 Emergency Room Visit in Previous 1 Month: Yes: for the above Access Management Current LDAs: Hemodialysis Arteriovenous Access 02/13/19 (Active) AV Fistula Present 07/19/24 0707 Site Assessment Clean;Dry;Intact;Bruit heard;Thrill felt 07/19/24 0707 Current State Active 07/19/24 07 Status Accessed 07/17/24 0644 Is Maturing N 07/19/24 0707 Local Anesthetic Topical 07/19/24 07 Site Prep Chlorhexidine 07/19/24 07 Venous Needle Size 15 G 07/19/24 07 Arterial/Generic Needle Size 15 G 07/19/24 07 Accessed by: Sandra Rae 07/19/24 07 Access Attempts 1 07/19/24 07 Dressing Status/Care Clean/Dry/Intact 07/19/24 07 Dressing Intervention Other (Comment) 05/30/242054 Patient has [...] insulin pen needles 32G x 5/32, Brand: Xtraice. ISS TID and levemir once daily, Disp: 100 Each, Rfl: 11 pantoprazole (PROTONIX) 40 mg tablet, Take 1 Tablet by mouth daily., Disp: , Rfl: polyethylene glycol 3350 (MIRALAX) 17 gram packet, Take 17 g by mouth 2 times daily., Disp: , Rfl: pregabalin (LYRICA) 100 mg [...] PRN, Skye Gomez NP, 650 mg at 07/19/24 0636 Adjustment made to home medication: No Dialysis Medication Review Dialysis Plan Order Summary All Current Orders Interval Duration Due Hemodialysis Therapy Plan Dialysis Treatment In-Center Hemodialysis 3 times a week Week of 07/16/2024 Routine, ONE TIME Starting when released Prescribed [...] - UF Profile: None Dialysis Last released: Wed07/19/2024 Oxygen Therapy (Age 2 yrs. to Adult) [...] released Until Discontinued, Pain, Dialysis Last released: Wed07/19/2024 diphenhydrAMINE (BENADRYL) capsule 25 mg PRN PRN [...] endof treatment. To be administered per Policy [id number]. Last released: Wed07/19/2024 sodium chloride 0.9 % BOLUS 100 mL [...] On the Wed of every 3 months Wed07/31/2024 Routine, ONE [...] only block results from tests performed at [facility] and does not apply for Miscellaneous Test Order): Immediate Last released: Never HEMODIALYSIS NUTRITIONAL SUPPLEMENTS Nutritional Supplements LiquaCel liquid protein liquid 30 mL Every visit Every visit 30 mL, oral, ONCE IN DIALYSIS Starting when released Patient's flavor preference: either Last released: Wed07/19/2024 HEMODIALYSIS CKD MBD MEDS Medications calcium carbonate (TUMS) tablet 500 mg (200 mg elemental calcium) 2 Tablet Every visit Every visit 2 Tablet, oral, ONCE IN DIALYSIS Starting when released, Dialysis Last released: Wed07/19/2024 Adjustment made to dialysis medication: No Laboratory Results Dialysis Adequacy: spKt/V: 1.45 (Calculated from:; BUN Pre-Dialysis: 67 mg/dL at 06/26/2024 11:41; BUN Post-Dialysis: 21mg/dL at 06/26/2024 11:41; Pre-Treatment Weight (kg): 83.5 at 06/26/2024 6:31; Post-Treatment Weight (kg): 78.6 at 06/26/2024 10:48; Duration of Treatment (minutes): 242 minutes at 06/26/2024 10:48) Plan: Continue current dialysis prescription Anemia Management: Lab Results Component Value Date WBC 8.38 07/12/2024 HGB 12.6 (L) 07/12/2024 HGB 12.2 (L) 07/05/2024 HGB 12.1 (L) 06/28/2024 PLT 180 07/12/2024 FOLATE >24.0 10/27/2023 [id number] 10/27/2023 FERRITIN 332 (H) 06/26/2024 Current [...] 07/10/2024 Prescribed Potassium Concentrate: HEMODIALYSIS Ordered at: 07/19/24 0626 Dialysate concentrate: Potassium 2 mEq/L Calcium 2.5 mEq/L 07/19/2024 6:26 Last Dialysis Prescription released on: Selected bath: [...] medication groupers. Plan: Managed per protocol Comments: He does not think he is taking Kayexalate. We discussed fluid gains and importance of trying to limit fluid intake. No other acute issues at this time. Skye Gomez NP documented in this encounter Plan of Treatment Upcoming Encounters Date Type Department Care Team (Late st Contact Info) Description 12/06/2024 6:45 EST Treatment [facility] [place] [address] [place], [place] [phone] Carlota Jin MD [address] [place] [phone] 12/08/2024 6:45 EST Treatment [facility] [address] [place], [place] [phone] Carlota Jin MD [address] [place] [phone] 12/11/2024 6:45 EST Treatment [facility] [address] [place], [place] [phone] Carlota Jin MD [address] [place] [phone] 12/13/2024 6:45 EST Treatment [facility] [place] [address] [place], [place] [id number] Carlota Jin MD 1 [facility], [facility] [address] [place] [phone] 12/15/2024 6:45 EST Treatment [facility] [place] [address] [place], [place] [phone] Carlota Jin MD 1 [facility], [facility] [address] [place] [phone] 12/18/2024 6:45 EST Treatment [facility] [address] [place] [id number] Carlota Jin MD [address] [place] [address], [facility] [address] [place] [phone] 12/20/2024 6:45 EST Treatment [facility] [address] [place], [place] [id number] Carlota Jin MD [address] [facility], [facility] [address] [place] [phone] 12/22/2024 6:45 EST Treatment [facility] [address] [place], [place] [id number] Carlota Jin MD 1 [facility], [facility] [address] [place] [phone] 12/25/2024 6:45 EST Treatment [facility] [address] [place], [place] [id number] Carlota Jin MD [facility], [facility] [address] [place] [phone] 12/27/2024 6:45 EST Treatment [facility] [place] [address] [place], [place] [id number] Carlota Jin MD [facility], [facility] [address] [place] [phone] 12/29/2024 6:45 EST Treatment [facility] [place] [address] [place], [place] [id number] Carlota Jin MD [address] [facility], [facility] [address] [place] [phone] 01/01/2025 6:45 EDT Treatment [facility] [place] [address] [place], [place] [phone] Carlota Jin MD 1 [facility], [facility] [address] [place] [phone] 01/03/2025 6:45 EDT Treatment [facility] [address] [place] [id number] Carlota Jin MD 1 [facility], [facility] [address] [place] [phone] 01/05/2025 6:45 EDT Treatment [facility] [place] [address] [place], [place] [phone] Carlota Jin MD [address] [facility], [facility] [address] [place] [phone] 01/08/2025 6:45 EDT Treatment [facility] [place] [address] [place], [place] [id number] Carlota Jin MD [address] [facility], [facility] [address] [place] [phone] 01/10/2025 6:45 EDT Treatment [facility] [place] [address] [place], [place] [id number] Carlota Jin MD [address] [facility], [facility] [address] [place] [phone] 01/12/2025 6:45 EDT Treatment [facility] [place] [address] [place], [place] [id number] Carlota Jin MD [address] [facility], [facility] [address] [place] [phone] 01/15/2025 6:45 EDT Treatment [facility] [place] [address] [place], [place] [id number] Carlota Jin MD [address] [facility], [facility] [address] [place] [phone] 01/17/2025 6:45 EDT Treatment [facility] [place] [address] [place], [place] [id number] Carlota Jin MD 1 [facility], [facility] [address] [place] [phone] 01/19/2025 6:45 EDT Treatment [facility] [place] [address] [place], [place] [id number] Carlota Jin MD [address] [facility], [facility] [address] [place] [phone] 01/22/2025 6:45 EDT Treatment [facility] [place] [address] [place] [id number] Carlota Jin MD 1 [facility], [facility] [address] [place] [phone] 01/24/2025 6:45 EDT Treatment [facility] [place] [address] [place], [place] [id number] Carlota Jin MD 1 [facility], [address] [phone] 01/26/2025 6:45 EDT Treatment [facility] [place] [address] [place], [place] [id number] Carlota Jin MD [address] [facility], [address] [phone] 01/29/2025 6:45 EDT Treatment [facility] [place] [address] [place], [place] [id number] Cralota Jin MD [address] [facility], [facility] [address] [place] [phone] 01/31/2025 6:45 EDT Treatment [facility] [place] [address] [place], [place] [id number] Carlota Jin MD [address] [facility], [facility] [address] [place] [phone] 02/02/2025 6:45 EDT Treatment [facility] [place] [address] [place], [place] [id number] Carlota Jin MD 1 [facility], [facility] [address] [place] [phone] 02/05/2025 6:45 EDT Treatment [facility] [place] [address] [place], [place] [id number] Carlota Jin MD [address] [facility], [facility] [address] [place] [phone] 02/07/2025 6:45 EDT Treatment [facility] [place] [address] [place], [place] [id number] Carlota Jin MD [address] [place] [address], [address] [phone] 02/09/2025 6:45 EDT Treatment [facility] [place] [address] [place], [place] [id number] Carlota Jin MD [address] [place] [address], [facility] [address] [place] [phone] 02/12/2025 6:45 EDT Treatment [facility] [place] [address] [place], [place] [id number] Carlota Jin MD 1 [facility], [facility] [address] [place] [phone] 02/14/2025 6:45 EDT Treatment [facility] [place] [address] [place], [place] [id number] Carlota Jin MD [address] [facility], [facility] [address] [place] [phone] 02/16/2025 6:45 EDT Treatment [facility] [address] [place], [place] [id number] Carlota Jin MD [address] [facility], [facility] [address] [place] [phone] 02/19/2025 6:45 EDT Treatment [facility] [place] [address] [place], [place] [id number] Carlota Jin MD 1 [facility], [facility] [address] [place] [phone] 02/21/2025 6:45 EDT Treatment [facility] [address] [place], [place] [id number] Carlota Jin MD 1 [facility], [facility] [address] [place] [phone] documented as of this encounter Procedures Procedure Name Priority Date/Time Associated Diagnosis Comments COMPLETE BLOOD COUNT Routine 07/19/2024 6:45 EDT ESRD (end stage renal disease) ([facility]) HEMODIALYSIS Routine 07/19/2024 6:26 EDT ESRD (end stage renal disease) ([facility]) documented in this encounter Results * (ABNORMAL) COMPLETE BLOOD COUNT (07/19/2024 6:45 EDT) WBC 8.20 4.00 - 10.40 K/cmm 07/19/2024 21[facility] RBC 4.39 4.36 - 5.78 M/cmm 07/19/2024 21:28 [facility] Hemoglobin 11.7(L) 13.8 - 17.3 g/dL 07/19/2024 21:28 [facility] HCT 38.4(L) 39.5 - 50.2 % 07/19/2024 21:28 [facility] MCV 88 81 - 95 fL 07/19/2024 21:28 [facility] MCH 26.7(L) 27.6 - 33.0 pg 07/19/2024 21:28 [facility] MCHC 30.5(L) 32.8 - 36.4 g/dL 07/19/2024 21:28 [facility] RDW-CV 17.6(H) <14.2 % 07/19/2024 21:28 [facility] RDW-SD 56.5(H) <46.0 fl 07/19/2024 21:28 [facility] PLT 205 141 - 377 K/cmm 07/19/2024 21:28 [facility] MPV 11.9 9.5 - 12.7 fL 07/19/2024 21:28 [facility] Blood VENOUS BLOOD / Unknown Venipuncture / Unknown 07/19/2024 6:45 EDT 07/19/2024 6:45 EDT Skye Gomez NP HEMATOLOGY & PF4 ORDERABLES Final Result [facility] [address] [place] [address] documented in this encounter Visit Diagnoses Diagnosis ESRD (end stage renal disease) ([facility])- Primary End stage renal disease Hypoalbuminemia Other disorders of plasma protein metabolism Secondary hyperparathyroidism ([facility]) Secondary hyperparathyroidism (of renal origin) documented in this encounter Administered Medications Inactive Administered Medications - up to 3 most recent administrations Medication Order MAR Action Action Date Dose Rate Site acetaminophen (TYLENOL) tablet 650 mg 650 mg, oral, EVERY 4 HOURS PRN, Starting on Wed07/19/24 at 0630, Until Wed07/19/24 at 1457, Pain, Routine, DialysisIndications:ESRD (end stage renal disease) ([facility]) Given 07/19/2024 11:11 EDT 650 mg Given 07/19/2024 6:36 EDT 650 mg calcium carbonate (TUMS) tablet 500 mg (200 mg elemental calcium) 2 Tablet 2 Tablet, oral, ONCE IN DIALYSIS, 1 dose, On Wed07/19/24 at 0645, Routine, DialysisIndications:ESRD (end stage renal disease) ([facility]),Secondary hyperparathyroidism ([facility]) Given 07/19/2024 6:36 EDT 2 Tablets heparin injection 3,000 Units 3,000 Units, intravenous, ONCE IN DIALYSIS, 1 dose, On Wed07/19/24 at 0645, Routine, Dialysis, Now x1 bolus 1500 units to be given at the beginning of dialysis 500 units/hour to be given over the course of dialysis (3000 units total). Stop 1 hour prior to end of treatment. To be administered per Policy [id number].Indications:ESRD (end stage renal disease) ([facility]) Given 07/19/2024 7:07 EDT 3,000 Units LiquaCel liquid protein liquid 30 mL 30 mL, oral, ONCE IN DIALYSIS, 1 dose, On Wed07/19/24 at 0645, Patient's flavor preference: either, RoutineIndications:ESRD (end stage renal disease) ([facility]),Hypoalbuminemia Given 07/19/2024 6:37 EDT 30 mL documented in this encounter Orders Dialysis Count Last Ordered Date First Orde red Date HEMODIALYSIS 1 07/19/2024 documented in this encounter Care Teams Special Crimes Investigator Relationship Specialty Start Date End Date Ken Greer MD [address] [place] [address] PCP - General 07/07/23 Kiel Powers [employer] Nephrology 05/31/24 documented as of this encounter
--- OUTSIDE RECORDS SUMMARY | 2024-12-05 12:00 | XMS_ITS | Encounter Summary ---
Author Organization [facility] Address [address] [place] [address] Care Team Providers Care Metrologist Name Role Phone Ken Greer MD Primary Care Provider [phone] Kiel Powers Unavailable Unavailable Encounter Details Date Type Department Care Team (Late st Contact Info) Description 07/17/2024 Orders Only [facility] [place] [address] [place] [id number] Valery Rice, RN [address] [place] [address] Pre-transplant evaluation for kidney transplant (Primary Dx) Social History Tobacco Use Types Packs/Day Years Used Date Smoking Tobacco: Every Day Cigarettes 1 26.1 Started: 1998 Smokeless Tobacco: Never Alcohol Use Standard Drinks/Week Comments Yes 0 (1 standard drink = 0.6 oz pur e alcohol) Socially [facility] Utilities Answer Date Recorded In the past 12 months has e [employer], gas, oil, or water [employer] threatened to shut off services in your [...] any time in the past 12 m [facility], were you homeless or [...] your living situation today? I have a [facility] place to live 05/30/2024 Think [...] th e electric, gas, oil, or water [employer] threatened to shut off services in your [...] documented in this encounter Progress Notes * Valery Rice RN - 07/17/2024 1624 EDT Orders placed for pre-evaluation labs. Pt will get done at [facility] lab after their appointment on 07/20/2024. Cannot be done at dialysis due to type of testing performed. Please stop at the [facility] lab on the 1st floor to get labs drawn before you leave. documented in this encounter Plan of Treatment Upcoming Encounters Date Type Department Care Team (Late st Contact Info) Description 12/06/2024 6:45 EST Treatment [facility] [place] [address] [place], [place] [phone] Carlota Jin MD 1 [facility], [facility] [address] [place] [phone] 12/08/2024 6:45 EST Treatment [facility] [place] [address] [place], [place] [phone] Carlota Jin MD 1 [facility], [facility] [address] [place] [phone] 12/11/2024 6:45 EST Treatment [facility] [place] [address] [place], [place] [phone] Carlota Jin MD [address] [place] [address], [address] [phone] 12/13/2024 6:45 EST Treatment [facility] [place] [address] [place], [place] [phone] Carlota Jin MD [address] [place] [address], [facility] [address] [place] [phone] 12/15/2024 6:45 EST Treatment [facility] [place] [address] [place], [place] [phone] Carlota Jin MD 1 [facility], [facility] [address] [place] [phone] 12/18/2024 6:45 EST Treatment [facility] [place] [address] [place], [place] [phone] Carlota Jin MD 1 [facility], [facility] [address] [place] [phone] 12/20/2024 6:45 EST Treatment [facility] [place] [address] [place], [place] [phone] Carlota Jin MD 1 [facility], [facility] [address] [place] [phone] 12/22/2024 6:45 EST Treatment [facility] [place] [address] [place], [place] [phone] Carlota Jin MD 1 [facility], [facility] [address] [place] [phone] 12/25/2024 6:45 EST Treatment [facility] [place] [address] [place], [place] [phone] Carlota Jin MD 1 [facility], [facility] [address] [place] [phone] 12/27/2024 6:45 EST Treatment [facility] [address] [place], [place] [phone] Carlota Jin MD 1 [facility], [facility] [address] [place] [phone] 12/29/2024 6:45 EST Treatment [facility] [place] [address] [place], [place] [phone] Carlota Jin MD 1 [facility], [facility] [address] [place] [phone] 01/01/2025 6:45 EDT Treatment [facility] [place] [address] [place], [place] [phone] Carlota Jin MD 1 [facility], [facility] [address] [place] [phone] 01/03/2025 6:45 EDT Treatment [facility] [place] [address] [place], [place] [phone] Carlota Jin MD 1 [facility], [facility] [address] [place] [phone] 01/05/2025 6:45 EDT Treatment [facility] [place] [address] [place], [place] [phone] Carlota Jin MD 1 [facility], [facility] [address] [place] [phone] 01/08/2025 6:45 EDT Treatment [facility] [place] [address] [place], [place] [phone] Carlota Jin MD 1 [facility], [facility] [address] [place] [phone] 01/10/2025 6:45 EDT Treatment [facility] [place] [address] [place], [place] [phone] Carlota Jin MD 1 [facility], [facility] [address] [place] [phone] 01/12/2025 6:45 EDT Treatment [facility] [place] [address] [place], [place] [phone] Carlota Jin MD 1 [facility], [facility] [address] [place] [phone] 01/15/2025 6:45 EDT Treatment [facility] [place] [address] [place] [address] Carlota Jin MD 1 [facility], [facility] [address] [place] [phone] 01/17/2025 6:45 EDT Treatment [facility] [place] [address] [place], [place] [phone] Carlota Jin MD 1 [facility], [address] [phone] 01/19/2025 6:45 EDT Treatment [facility] [place] [address] [place], [place] [phone] Carlota Jin MD 1 [facility], [address] [phone] 01/22/2025 6:45 EDT Treatment [facility] [place] [address] [place], [place] [phone] Carlota Jin MD 1 [facility], [facility] [address] [place] [phone] 01/24/2025 6:45 EDT Treatment [facility] [place] [address] [place], [place] [phone] Carlota Jin MD 1 [facility], [facility] [address] [place] [phone] 01/26/2025 6:45 EDT Treatment [facility] [place] [address] [place], [place] [phone] Carlota Jin MD 1 [facility], [facility] [address] [place] [phone] 01/29/2025 6:45 EDT Treatment [facility] [place] [address] [place], [place] [phone] Carlota Jin MD 1 [facility], [facility] [address] [place] [phone] 01/31/2025 6:45 EDT Treatment [facility] [place] [address] [place], [place] [phone] Carlota Jin MD [address] [place] [address], [address] [phone] 02/02/2025 6:45 EDT Treatment [facility] [place] [address] [place], [place] [phone] Carlota Jin MD [address] [place] [address], [facility] [address] [place] [phone] 02/05/2025 6:45 EDT Treatment [facility] [place] [address] [place], [place] [phone] Carlota Jin MD 1 [facility], [facility] [address] [place] [phone] 02/07/2025 6:45 EDT Treatment [facility] [place] [address] [place], [place] [phone] Carlota Jin MD 1 [facility], [facility] [address] [place] [phone] 02/09/2025 6:45 EDT Treatment [facility] [place] [address] [place], [place] [phone] Carlota Jin MD 1 [facility], [facility] [address] [place] [phone] 02/12/2025 6:45 EDT Treatment [facility] [place] [address] [place], [place] [phone] Carlota Jin MD 1 [facility], [facility] [address] [place] [phone] 02/14/2025 6:45 EDT Treatment [facility] [place] [address] [place], [place] [phone] Carlota Jin MD 1 [facility], [facility] [address] [place] [phone] 02/16/2025 6:45 EDT Treatment [facility] [place] [address] [place], [place] [phone] Carlota Jin MD 1 [facility], [facility] [address] [place] [phone] 02/19/2025 6:45 EDT Treatment [facility] [place] [address] [place], [place] [phone] Carlota Jin MD 1 [facility], [facility] [address] [place] [phone] 02/21/2025 6:45 EDT Treatment [facility] [place] [address] [place], [place] [phone] Carlota Jin MD 1 [facility] Level [address] [place] [phone] Scheduled Orders Name Type Priority Associated Diagnoses Orde r Schedule GLUCOSE 6-PHOSPHATE DEHYDROGENASE ENZYME ACTIVITY,BLD Lab Routine Pre-transplant evaluation for kidney transplant Expected: 07/20/2024 (Approximate), Expires: 07/24/2025 ABO/RH Blood Bank Routine Pre-transplant evaluation for kidney transplant Expected: 07/20/2024 (Approximate), Expires: 07/19/2025 CMV IGG Lab Routine Pre-transplant evaluation for kidney transplant Expected: 07/20/2024 (Approximate), Expires: 07/19/2025 COMPLETE BLOOD COUNT AND DIFFERENTIAL Lab Routine Pre-transplant evaluation for kidney transplant Expected: 07/20/2024 (Approximate), Expires: 07/19/2025 COMPREHENSIVE METABOLIC PANEL (CMP) Lab Routine Pre-transplant evaluation for kidney transplant Expected: 07/20/2024 (Approximate), Expires: 07/19/2025 ELIANA-ALVARADO PANEL Lab Routine Pre-transplant evaluation for kidney transplant Expected: 07/20/2024 (Approximate), Expires: 07/19/2025 HEMOGLOBIN A1C Lab Routine Pre-transplant evaluation for kidney transplant Expected: 07/20/2024 (Approximate), Expires: 07/19/2025 HEPATITIS B PROFILE Lab Routine Pre-transplant evaluation for kidney transplant Expected: 07/20/2024 (Approximate), Expires: 07/19/2025 HEPATITIS C AB W REFLEX TO HCV RNA BY PCR Lab Routine Pre-transplant evaluation for kidney transplant Expected: 07/20/2024 (Approximate), Expires: 07/19/2025 HERPES SIMPLEX VIRUS (HSV) TYPE 1 & 2 AB, IGG Lab Routine Pre-transplant evaluation for kidney transplant Expected: 07/20/2024 (Approximate), Expires: 07/17/2025 HIV 1/2 ANTIGEN AND ANTIBODY, 4TH GENERATION Lab Routine Pre-transplant evaluation for kidney transplant Expected: 07/20/2024 (Approximate), Expires: 07/19/2025 HTLV I/II ANTIBODY SCREEN Lab Routine Pre-transplant evaluation for kidney transplant Expected: 07/20/2024 (Approximate), Expires: 07/19/2025 IBC Lab Routine Pre-transplant evaluation for kidney transplant Expected: 07/20/2024 (Approximate), Expires: 07/19/2025 MEASLES IGG AB Lab Routine Pre-transplant evaluation for kidney transplant Expected: 07/20/2024 (Approximate), Expires: 07/17/2025 MUMPS ANTIBODY IGG Lab Routine Pre-transplant evaluation for kidney transplant Expected: 07/20/2024 (Approximate), Expires: 07/19/2025 PHOSPHORUS Lab Routine Pre-transplant evaluation for kidney transplant Expected: 07/20/2024 (Approximate) PROTIME Lab Routine Pre-transplant evaluation for kidney transplant Expected: 07/20/2024 (Approximate), Expires: 07/19/2025 PSA TOTAL AND FREE, SERUM Lab Routine Pre-transplant evaluation for kidney transplant Expected: 07/20/2024 (Approximate), Expires: 07/17/2025 PTH INTACT Lab Routine Pre-transplant evaluation for kidney transplant Expected: 07/20/2024 (Approximate), Expires: 07/17/2025 PTT Lab Routine Pre-transplant evaluation for kidney transplant Expected: 07/20/2024 (Approximate), Expires: 07/19/2025 QUANTIFERON TB GOLD PLUS Lab Routine Pre-transplant evaluation for kidney transplant Expected: 07/20/2024 (Approximate), Expires: 07/17/2025 RUBELLA IGG ANTIBODY Lab Routine Pre-transplant evaluation for kidney transplant Expected: 07/20/2024 (Approximate), Expires: 07/19/2025 SYPHILIS SEROLOGY Lab Routine Pre-transplant evaluation for kidney transplant Expected: 07/20/2024 (Approximate), Expires: 07/19/2025 VARICELLA IGG ANTIBODY Lab Routine Pre-transplant evaluation for kidney transplant Expected: 07/20/2024 (Approximate), Expires: 07/19/2025 documented as of this encounter Visit Diagnoses Diagnosis Pre-transplant evaluation for kidney transplant- Primary Other specified pre-operative examination documented in this encounter Care Teams Metrologist Relationship Specialty Start Date End Date Ken Greer MD [address] [place] [address] PCP - General 07/07/23 Kiel Powers [employer] Nephrology 05/31/24 documented as of this encounter
--- OUTSIDE RECORDS SUMMARY | 2024-12-05 12:00 | XMS_ITS | Encounter Summary ---
Author Organization [facility] Address [address] [place] [address] Care Team Providers Care Navy Airspace Officer Name Role Phone Ken Greer MD Primary Care Provider [phone] Kiel Powers Unavailable Unavailable Reason for Visit * Episode Based Medications (Routine) - New Request Specialty Diagnoses / Procedures Referred By Nader gardiner Referred To Contact Diagnoses ESRD (end stage renal disease) ([facility]) Carlota Jin MD [address] [place] [address] [address] [place] [address] Phone: tel: fax: [facility] [place] [address] [place] [address] Phone: tel: fax: Referral ID Status Reason Start Date Expiration Date V isits Requested Visits Authorized [id number] New Request 03/17/2024 1 1 Encounter Details Date Type Department Care Team (Latest Contact Info) Description 07/14/2024 6:45 EDT Treatment [facility] [address] [place], [place] [id number] Carlota Jin MD [address] [place] [address], [facility] [address] [place] [address] ESRD (end stage renal disease) ([facility]) (Primary Dx); Hypoalbuminemia; Secondary hyperparathyroidism ([facility]) Social History Tobacco Use Types Packs/Day Years Used Date Smoking Tobacco: Every Day Cigarettes 1 26.1 Started: 1998 Smokeless Tobacco: Never Alcohol Use Standard Drinks/Week Comments Yes 0 (1 standard drink = 0.6 oz pur e alcohol) Socially [facility] Utilities Answer Date Recorded In the past [...] any time in the past 12 m [facility], were you homeless or living in a half-way (including now)? No 05/30/2024 Interpersonal Safety Answer [...] the past 12 months has th e [employer], gas, oil, or water [employer] threatened to shut off services in your [...] - Temperature - - Respiratory Rate 16 07/14/2024 0621 EDT Oxygen Saturation - - Inhaled Oxygen Concentration - - Weight 78.6 kg (173 lb 4.5 oz) 07/14/2024 0626 E DT Height - - Body Mass Index 24.86 12/20/2023 2202 EST documented in this encounter [...] Flowsheet Note - Marcela Cox RN - 07/14/2024 1348 EDT 07/14/24 1040 Post-Hemodialysis Assessment Total Blood Processed (L) 90.86 Liters On Line Clearance: spKt/V 1.57 spKt/V Dialyzer Clearance Lightly streaked Treatment UFR (ml:kg:hr) 11.51 ml:kg:hr Critline refill Not done Fluid Removed (L) 3.8 L Post-Dialysis Scale Weight 93.7 kg (206 lb 9.1 oz) Wheelchair Weight 18.6 kg (41 lb 0.1 oz) Prosthesis Weight 0 kg (0 lb) Post-Treatment Weight (kg) 75.1 Treatment Weight Change (kg) 3.5 kg Day [employer] Weight (kg) 75.3 Post Sitting/Lying BP 177/85 Post Sitting/Lying pulse 63 Temp 36.6 ??C (97.9 ??F) Temp src Temporal Minutes Short -243 Post access assessment Bruit present: Yes Thrill Present AVF/AFG Hemostasis achieved Yes Note Patient held for 10mins without any issues, than upon exiting PT bump is arm on his chair repositioning and ther arterial site began to rebleed. Pressure was applied for an additional 10mins-RN is aware Orientation Alert and Oriented x3 Yes Time [...] Contact Info) Description 12/06/2024 6:45 EST Treatment [facility] [place] [address] [place], [place] [id number] Carlota Jin MD [address] [place] [phone] 12/08/2024 6:45 EST Treatment [facility] [place] [address] [place], [place] [id number] Carlota Jin MD [address] [place] [phone] 12/11/2024 6:45 EST Treatment [facility] [address] [place], [place] [id number] Carlota Jin MD [address] [place] [phone] 12/13/2024 6:45 EST Treatment [facility] [address] [place], [place] [id number] Carlota Jin MD [address] [place] [phone] 12/15/2024 6:45 EST Treatment [facility] [address] [place], [place] [id number] Carlota Jin MD 1 [facility], Level [address] [place] [phone] 12/18/2024 6:45 EST Treatment [facility] [place] [address] [place], [place] [id number] Carlota Jin MD 1 [facility], [facility] 2 [place] [phone] 12/20/2024 6:45 EST Treatment [facility] [place] [address] [place], [place] [id number] Carlota Jin MD [facility], [facility] 2 [place] [phone] 12/22/2024 6:45 EST Treatment [facility] [place] [address] [place], [place] [id number] Carlota Jin MD [facility], [facility] [address] [place] [phone] 12/25/2024 6:45 EST Treatment [facility] [place] [address] [place] [address] Carlota Jin MD [facility], [facility] 2 [place] [phone] 12/27/2024 6:45 EST Treatment [facility] [place] [address] [place], [place] [id number] Carlota Jin MD [address] [facility], [facility] 2 [place] [phone] 12/29/2024 6:45 EST Treatment [facility] [place] [address] [place], [place] [id number] Carlota Jin MD 1 [facility], [facility] 2 [place] [phone] 01/01/2025 6:45 EDT Treatment [facility] [place] [address] [place], [place] [id number] Carlota Jin MD 1 [facility], [facility] 2 [place] [phone] 01/03/2025 6:45 EDT Treatment [facility] [place] [address] [place], [place] [id number] Carlota Jin MD [address] [place] [address], [facility] 2 [place] [phone] 01/05/2025 6:45 EDT Treatment [facility] [place] [address] [place], [place] [id number] Carlota Jin MD 1 [facility], [facility] [address] [place] [phone] 01/08/2025 6:45 EDT Treatment [facility] [place] [address] [place], [place] [id number] Carlota Jin MD 1 [facility], [facility] 2 [place] [phone] 01/10/2025 6:45 EDT Treatment [facility] [place] [address] [place], [place] [id number] Carlota Jin MD [address] [facility], [facility] 2 [place] [phone] 01/12/2025 6:45 EDT Treatment [facility] [place] [address] [place], [place] [id number] Carlota Jin MD [address] [facility], [facility] 2 [place] [phone] 01/15/2025 6:45 EDT Treatment [facility] [place] [address] [place], [place] [id number] Carlota Jin MD 1 [facility], [facility] 2 [place] [phone] 01/17/2025 6:45 EDT Treatment [facility] [place] [address] [place] [id number] Carlota Jin MD 1 [facility], [facility] [address] [place] [phone] 01/19/2025 6:45 EDT Treatment [facility] [place] [address] [place], [place] [id number] Carlota Jin MD 1 [facility], [facility] [address] [place] [phone] 01/22/2025 6:45 EDT Treatment [facility] [place] [address] [place], [place] [id number] Carlota Jni MD 1 [facility], [facility] [address] [place] [phone] 01/24/2025 6:45 EDT Treatment [facility] [place] [address] [place], [place] [id number] Carlota Jin MD 1 [facility], [facility] 2 [place] [phone] 01/26/2025 6:45 EDT Treatment [facility] [place] [address] [place], [place] [id number] Carlota Jin MD 1 [facility], [facility] [address] [place] [phone] 01/29/2025 6:45 EDT Treatment [facility] [place] [address] [place], [place] [id number] Carlota Jin MD 1 [facility], [facility] [address] [place] [phone] 01/31/2025 6:45 EDT Treatment [facility] [place] [address] [place], [place] [id number] Carlota Jin MD 1 [facility], [facility] [address] [place] [phone] 02/02/2025 6:45 EDT Treatment [facility] [place] [address] [place], [place] [id number] Carlota Jin MD 1 [facility], [facility] 2 [place] [phone] 02/05/2025 6:45 EDT Treatment [facility] [place] [address] [place], [place] [id number] Carlota Jin MD 1 [facility], [facility] 2 [place] [phone] 02/07/2025 6:45 EDT Treatment [facility] [place] [address] [place] [address] Carlota Jin MD [address] [facility], [facility] 2 [place] [phone] 02/09/2025 6:45 EDT Treatment [facility] [place] [address] [place], [place] [id number] Carlota Jin MD 1 [facility], [facility] 2 [place] [phone] 02/12/2025 6:45 EDT Treatment [facility] [place] [address] [place], [place] [id number] Carlota Jin MD 1 [facility], [facility] 2 [place] [phone] 02/14/2025 6:45 EDT Treatment [facility] [place] [address] [place], [place] [id number] Carlota Jin MD 1 [facility], [facility] 2 [place] [phone] 02/16/2025 6:45 EDT Treatment [facility] [place] [address] [place], [place] [id number] Carlota Jin MD [address] [facility], [facility] 2 [place] [phone] 02/19/2025 6:45 EDT Treatment [facility] [place] [address] [place], [place] [id number] Carlota Jin MD 1 [facility], [facility] 2 [place] [phone] 02/21/2025 6:45 EDT Treatment [facility] [place] [address] [place], [place] [id number] Carlota Jin MD 1 [facility], [facility] 2 [place] [phone] documented as of this encounter Procedures Procedure Name Priority Date/Time Associated Diagnosis Comments HEMODIALYSIS Routine 07/14/2024 6:22 EDT ESRD (end stage renal disease) ([facility]) documented in this encounter Visit Diagnoses Diagnosis ESRD (end stage renal disease) ([facility])- Primary End stage renal disease Hypoalbuminemia Other disorders of plasma protein metabolism Secondary hyperparathyroidism ([facility]) Secondary hyperparathyroidism (of renal origin) documented in this encounter Administered Medications Inactive Administered Medications - up to 3 most recent administrations Medication Order MAR Action Action Date Dose Rate Site calcium carbonate (TUMS) tablet 500 mg (200 mg elemental calcium) 2 Tablet 2 Tablet, oral, ONCE IN DIALYSIS, 1 dose, On Wed07/14/24 at 0645, Routine, DialysisIndications:ESRD (end stage renal disease) ([facility]),Secondary hyperparathyroidism ([facility]) Given 07/14/2024 6:48 EDT 2 Tablets heparin injection 3,000 Units 3,000 Units, intravenous, ONCE IN DIALYSIS, 1 dose, On Wed07/14/24 at 0645, Routine, Dialysis, Now x1 bolus 1500 units to be given at the beginning of dialysis 500 units/hour to be given over the course of dialysis (3000 units total). Stop 1 hour prior to end of treatment. To be administered per Policy [id number].Indications:ESRD (end stage renal disease) ([facility]) Given 07/14/2024 6:48 EDT 3,000 Units LiquaCel liquid protein liquid 30 mL 30 mL, oral, ONCE IN DIALYSIS, 1 dose, On Wed07/14/24 at 0645, Patient's flavor preference: either, RoutineIndications:ESRD (end stage renal disease) ([facility]),Hypoalbuminemia Given 07/14/2024 6:48 EDT 30 mL documented in this encounter Orders Dialysis Count Last Ordered Date First Orde red Date HEMODIALYSIS 1 07/14/2024 documented in this encounter Care Teams [employer] Relationship Specialty Start Date End Date Ken Greer MD [address] [place] [address] PCP - General 07/07/23 Kiel Powers Direct Mail Manager Nephrology 05/31/24 documented as of this encounter
--- OUTSIDE RECORDS SUMMARY | 2024-12-05 12:00 | XMS_ITS | Encounter Summary ---
Author Organization [facility] Address [address] [place] [address] Care Team Providers Care Dinkey Locomotive Operator Name Role Phone Ken Greer MD Primary Care Provider [phone] Kiel Powers Unavailable Unavailable Encounter Details Date Type Department Care Team (Late st Contact Info) Description 07/07/[address] [facility] [address] [place], [place] [phone] Yoanna Degroot, RN Social History Tobacco Use Types Packs/Day Years Used Date Smoking Tobacco: Every Day Cigarettes 1 26.1 Started: 1998 Smokeless Tobacco: Never Alcohol Use Standard Drinks/Week Comments Yes 0 (1 standard drink = 0.6 oz pur e alcohol) Socially [facility] Utilities Answer Date Recorded In the [...] time in the past 12 m [facility], were you homeless or living [...] your living situation today? I have a [facility] place to live 05/30/2024 Think about [...] Contact Info) Description 12/06/2024 6:45 EST Treatment [facility] [place] [address] [place], [place] [phone] Carlota Jin MD 1 [facility], Level [address] [place] [phone] 12/08/2024 6:45 EST Treatment [facility] [place] [address] [place], [place] [id number] Carlota Jin MD 1 [facility], Level [address] [place] [phone] 12/11/2024 6:45 EST Treatment [facility] [place] [address] [place], [place] [id number] Carlota Jin MD 1 [facility] 2 [place] [phone] 12/13/2024 6:45 EST Treatment [facility] [place] [address] [place], [place] [id number] Carlota Jin MD 1 [facility], [facility] 2 [place] [phone] 12/15/2024 6:45 EST Treatment [facility] [place] [address] [place] [address] Carlota Jin MD 1 [facility], [facility] 2 [place] [phone] 12/18/2024 6:45 EST Treatment [facility] [address] [place], [place] [id number] Carlota Jin MD 1 [facility], [facility] 2 [place] [phone] 12/20/2024 6:45 EST Treatment [facility] [place] [address] [place], [place] [id number] Carlota Jin MD 1 [facility], [facility] 2 [place] [phone] 12/22/2024 6:45 EST Treatment [facility] [place] [address] [place], [place] [id number] Carlota Jin MD 1 [facility], [facility] 2 [place] [phone] 12/25/2024 6:45 EST Treatment [facility] [place] [address] [place], [place] [id number] Carlota Jin MD 1 [facility], [facility] 2 [place] [phone] 12/27/2024 6:45 EST Treatment [facility] [place] [address] [place], [place] [id number] Carlota Jin MD 1 [facility], [facility] 2 [place] [phone] 12/29/2024 6:45 EST Treatment [facility] [place] [address] [place], [place] [id number] Carlota Jin MD 1 [facility], [facility] 2 [place] [phone] 01/01/2025 6:45 EDT Treatment [facility] [place] [address] [place], [place] [id number] Carlota Jin MD 1 [facility], [facility] 2 [place] [phone] 01/03/2025 6:45 EDT Treatment [facility] [place] [address] [place], [place] [id number] Carlota Jin MD 1 [facility], [facility] 2 [place] [phone] 01/05/2025 6:45 EDT Treatment [facility] [place] [address] [place], [place] [id number] Carlota Jin MD 1 [facility], [facility] 2 [place] [phone] 01/08/2025 6:45 EDT Treatment [facility] [place] [address] [place], [place] [id number] Carlota Jin MD 1 [facility], [facility] 2 [place] [phone] 01/10/2025 6:45 EDT Treatment [facility] [place] [address] [place], [place] [id number] Carlota Jin MD 1 [facility], [facility] 2 [place] [phone] 01/12/2025 6:45 EDT Treatment [facility] [address] [place], [place] [id number] Carlota Jin MD 1 [facility], [facility] 2 [place] [phone] 01/15/2025 6:45 EDT Treatment [facility] [place] [address] [place], [place] [id number] Carlota Jin MD 1 [facility], [facility] 2 [place] [phone] 01/17/2025 6:45 EDT Treatment [facility] [place] [address] [place], [place] [id number] Carlota Jin MD 1 [facility], [facility] 2 [place] [phone] 01/19/2025 6:45 EDT Treatment [facility] [place] [address] [place], [place] [id number] Carlota Jin MD 1 [facility], [facility] 2 [place] [phone] 01/22/2025 6:45 EDT Treatment [facility] [place] [address] [place], [place] [id number] Carlota Jin MD 1 [facility], [facility] 2 [place] [phone] 01/24/2025 6:45 EDT Treatment [facility] [place] [address] [place], [place] [id number] Carlota Jin MD 1 [facility], [facility] 2 [place] [phone] 01/26/2025 6:45 EDT Treatment [facility] [place] [address] [place], [place] [id number] Carlota Jin MD 1 [facility], [facility] 2 [place] [phone] 01/29/2025 6:45 EDT Treatment [facility] [place] [address] [place], [place] [id number] Carlota Jin MD 1 [facility], [facility] 2 [place] [phone] 01/31/2025 6:45 EDT Treatment [facility] [place] [address] [place] [address] Carlota Jin MD 1 [facility], [address] [phone] 02/02/2025 6:45 EDT Treatment [facility] [place] [address] [place], [place] [id number] Carlota Jin MD 1 [facility], [address] [phone] 02/05/2025 6:45 EDT Treatment [facility] [place] [address] [place], [place] [id number] Carlota Jin MD 1 [facility], [address] [phone] 02/07/2025 6:45 EDT Treatment [facility] [place] [address] [place], [place] [id number] Carlota Jin MD 1 [facility], [facility] 2 [place] [phone] 02/09/2025 6:45 EDT Treatment [facility] [place] [address] [place], [place] [id number] Carlota Jin MD 1 [facility], [facility] 2 [place] [phone] 02/12/2025 6:45 EDT Treatment [facility] [place] [address] [place], [place] [id number] Carlota Jin MD 1 [facility], [address] [phone] 02/14/2025 6:45 EDT Treatment [facility] [place] [address] [place], [place] [id number] Carlota Jin MD [address] [place] [phone] 02/16/2025 6:45 EDT Treatment [facility] [place] [address] [place], [place] [address] [phone] Carlota Jin MD [address] [place] [phone] 02/19/2025 6:45 EDT Treatment [facility] [place] [address] [place], [place] [id number] Carlota Jin MD [address] [place] [address] [phone] 02/21/2025 6:45 EDT Treatment [facility] [place] [address] [place], [place] [id number] Carlota Jin MD [address] [phone] documented as of this encounter Visit Diagnoses Not on filedocumented in this encounter Care Teams Dinkey Locomotive Operator Relationship Specialty Start Date End Date Ken Greer MD [address] [place] [address] PCP - General 07/07/23 Kiel Powers Tool Rental Technician Nephrology 05/31/24 documented as of this encounter
--- OUTSIDE RECORDS SUMMARY | 2024-12-05 12:00 | XMS_ITS | Encounter Summary ---
Author Organization [facility] Address [address] [place] [address] Care Team Providers Care Workers Compensation Administrator Name Role Phone Ken Greer MD Primary Care Provider [phone] Kiel Powers Unavailable Unavailable Encounter Details Date Type Department Care Team (Late st Contact Info) Description 07/05/2024 Documentation Visit [facility] [address] [place] [address] Alexa Estrada, [facility] [address] [place] [address] Social History Tobacco Use Types Packs/Day Years Used Date Smoking Tobacco: Every Day Cigarettes 1 26.1 Started: 1998 Smokeless Tobacco: Never Alcohol Use Standard Drinks/Week Comments Yes 0 (1 standard drink = 0.6 oz pur e alcohol) Socially [facility] Utilities Answer Date Recorded In the past 12 months has [facility] [employer], gas, oil, or water [employer] threatened to shut off services in [...] your living situation today? I have a [facility] place to live 05/30/2024 Think [...] th e electric, gas, oil, or water [employer] threatened to shut off services in [...] this encounter Progress Notes * Alexa Estrada, OFFICE COORDINATOR RECEPTIONIST - 07/05/2024 1128 EDT [employer] Apprentice's Monthly Assessment UPDATE: SW met with pt and his - said they are making steps toward the home they are building being livable before the winter- they are getting heat this month. Pt is waiting for approval of Choices for care, the application is still pending. SW gave pt check for [employer] gas mileage reimbursement. No other SW needs at this time. SW will continue to follow/remainavailable. Current Living Situation: Lives with family and Lives with friends Lives with family Pt lives with his , Hoda, in their apartment in [place]. He rents the apartment and has a [...] Transportation Status: Transportation: Drives Self Payor: Receives [employer] mileage reimbursement. Change in Physical/Medical Status and [...] Patient/Family Strengths: Pt is friendly and engaging Interests/Spiritual/Bahai Practice: No spiritual practices Depression Screening: Is [...] Contact Info) Description 12/06/2024 6:45 EST Treatment [facility] [place] [address] [place], [place] [id number] Carlota Jin MD [address] [phone] 12/08/2024 6:45 EST Treatment [facility] [place] [address] [place], [place] [id number] Carlota Jin MD [address] [place] [phone] 12/11/2024 6:45 EST Treatment [facility] [place] [address] [place], [place] [id number] Carlota Jin MD [address] [place] [address] [phone] 12/13/2024 6:45 EST Treatment [facility] [place] [address] [place], [place] [id number] Carlota Jin MD [address] [place] [address] [phone] 12/15/2024 6:45 EST Treatment [facility] [place] [address] [place], [place] [id number] Carlota Jin MD 1 [facility], [facility] [address] [place] [phone] 12/18/2024 6:45 EST Treatment [facility] [place] [address] [place], [place] [id number] Carlota Jin MD 1 [facility], [facility] [address] [place] [phone] 12/20/2024 6:45 EST Treatment [facility] [place] [address] [place], [place] [id number] Carlota Jin MD 1 [facility], [facility] [address] [place] [phone] 12/22/2024 6:45 EST Treatment [facility] [place] [address] [place], [place] [id number] Carlota Jin MD 1 [facility], [facility] [address] [place] [phone] 12/25/2024 6:45 EST Treatment [facility] [address] [place], [place] [id number] Carlota Jin MD 1 [facility], [facility] [address] [place] [phone] 12/27/2024 6:45 EST Treatment [facility] [address] [place], [place] [id number] Carlota Jin MD 1 [facility], [facility] [address] [place] [phone] 12/29/2024 6:45 EST Treatment [facility] [place] [address] [place], [place] [id number] Carlota Jin MD 1 [facility], [facility] [address] [place] [phone] 01/01/2025 6:45 EDT Treatment [facility] [place] [address] [place], [place] [id number] Carlota Jin MD [address] [place] [address], [address] [phone] 01/03/2025 6:45 EDT Treatment [facility] [place] [address] [place], [place] [id number] Carlota Jin MD [address] [place] [address], [address] [phone] 01/05/2025 6:45 EDT Treatment [facility] [place] [address] [place], [place] [id number] Carlota Jin MD [address] [place] [address], [facility] [address] [place] [phone] 01/08/2025 6:45 EDT Treatment [facility] [place] [address] [place], [place] [id number] Carlota Jin MD [address] [place] [address], [facility] [address] [place] [phone] 01/10/2025 6:45 EDT Treatment [facility] [place] [address] [place], [place] [id number] Carlota Jin MD 1 [facility], Level [address] [place] [phone] 01/12/2025 6:45 EDT Treatment [facility] [place] [address] [place], [place] [id number] Carlota Jin MD 1 [facility], [facility] [address] [place] [phone] 01/15/2025 6:45 EDT Treatment [facility] [address] [place], [place] [id number] Carlota Jin MD 1 [facility], [facility] [address] [place] [phone] 01/17/2025 6:45 EDT Treatment [facility] [place] [address] [place] [address] Carlota [address] MD 1 [facility], [facility] [address] [place] [phone] 01/19/2025 6:45 EDT Treatment [facility] [address] [place], [place] [id number] Carlota Jin MD [address] [facility], [facility] [address] [place] [phone] 01/22/2025 6:45 EDT Treatment [facility] [address] [place], [place] [id number] Carlota Jin MD [address] [facility], [facility] [address] [place] [phone] 01/24/2025 6:45 EDT Treatment [facility] [place] [address] [place], [place] [id number] Carlota Jin MD 1 [facility], [facility] [address] [place] [phone] 01/26/2025 6:45 EDT Treatment [facility] [place] [address] [place], [place] [id number] Carlota Jin MD 1 [facility], [facility] 2 [place] [phone] 01/29/2025 6:45 EDT Treatment [facility] [place] [address] [place] [address] Carlota Jin MD 1 [facility], [facility] 2 [place] [phone] 01/31/2025 6:45 EDT Treatment [facility] [place] [address] [place], [place] [id number] Carlota Jin MD 1 [facility], [facility] [address] [place] [phone] 02/02/2025 6:45 EDT Treatment [facility] [place] [address] [place], [place] [id number] Carlota Jin MD 1 [facility], [facility] [address] [place] [phone] 02/05/2025 6:45 EDT Treatment [facility] [place] [address] [place], [place] [id number] [phone] Carlota Jin MD 1 [facility], [facility] [address] [place] [phone] 02/07/2025 6:45 EDT Treatment [facility] [place] [address] [place], [place] [id number] Carlota Jin MD 1 [facility], [facility] [address] [place] [phone] 02/09/2025 6:45 EDT Treatment [facility] [place] [address] [place] [address] Carlota Jin MD 1 [facility], [address] [phone] 02/12/2025 6:45 EDT Treatment [facility] [place] [address] [place], [place] [id number] Carlota Jin MD 1 [facility], [address] [phone] 02/14/2025 6:45 EDT Treatment [facility] [place] [address] [place] [address] Carlota Jin MD 1 [facility], [facility] [address] [place] [phone] 02/16/2025 6:45 EDT Treatment [facility] [place] [address] [place], [place] [id number] Carlota Jin MD 1 [facility], [facility] [address] [place] [phone] 02/19/2025 6:45 EDT Treatment [facility] [address] [place], [place] [id number] Carlota Jin MD [address] [place] [address], [facility] [address] [place] [phone] 02/21/2025 6:45 EDT Treatment [facility] [address] [place], [place] [id number] Carlota Jin MD [address] [place] [address], [facility] [address] [place] [phone] documented as of this encounter Visit Diagnoses Not on filedocumented in this encounter Care Teams Workers Compensation Administrator Relationship Specialty Start Date End Date Ken Greer MD [facility] [place] [address] PCP - General 07/07/23 Kiel Powers Radio Communications Superintendent Nephrology 05/31/24 documented as of this encounter
--- OUTSIDE RECORDS SUMMARY | 2024-12-05 12:00 | XMS_ITS | Encounter Summary ---
Author Organization [facility] Address [address] [place] [address] Care Team Providers Care Patient Safety Manager Name Role Phone Ken Greer MD Primary Care Provider Kiel Powers Unavailable Unavailable Reason for Visit * Episode Based Medications (Routine) - New Request Specialty Diagnoses / Procedures Referred By Nader gardiner Referred To Contact Diagnoses ESRD (end stage renal disease) ([facility]) Carlota Jin MD [address] [place] [address] [address] [place] [address] Phone: tel: fax: [facility] [place] [address] [place] [address] Phone: tel: fax: Referral ID Status Reason Start Date Expiration Date V isits Requested Visits Authorized [id number] New Request 03/17/2024 1 1 Encounter Details Date Type Department Care Team (Latest Contact Info) Description 07/10/2024 6:45 EDT Treatment [facility] [address] [place], [place] [id number] Carlota Jin MD [address] [place] [address], [facility] 2 [place] [phone] ESRD (end stage renal disease) ([facility]) (Primary Dx); Hypoalbuminemia; Secondary hyperparathyroidism ([facility]) Social History Tobacco Use Types Packs/Day Years Used Date Smoking Tobacco: Every Day Cigarettes 1 26.1 Started: 1998 Smokeless Tobacco: Never Alcohol Use Standard Drinks/Week Comments Yes 0 (1 standard drink = 0.6 oz pur e alcohol) Socially [facility] Utilities Answer Date Recorded In the past [...] any time in the past 12 m [facility], were you homeless or living [...] the past 12 months has th e [employer], gas, oil, or water [employer] threatened to shut off services in your [...] - Temperature - - Respiratory Rate 16 07/10/2024 0621 EDT Oxygen Saturation - - Inhaled Oxygen Concentration - - Weight 79.4 kg (175 lb 0.7 oz) 07/10/2024 0623 E DT Height - - Body Mass Index 25.12 12/20/2023 2202 EST documented in this encounter [...] Flowsheet Note - Marcela Cox RN - 07/10/2024 1313 EDT 07/10/24 1044 Post-Hemodialysis Assessment Total Blood Processed (L) 86.04 Liters On Line Clearance: spKt/V 1.32 spKt/V Dialyzer Clearance Lightly streaked Treatment UFR (ml:kg:hr) 13.07 ml:kg:hr Final Critline Profile (%/hr) 0.12 Final Profile Profile A Critline refill Not done Fluid Removed (L) 4.4 L Post-Dialysis Scale Weight 94.4 kg (208 lb 1.8 oz) Wheelchair Weight 19.1 kg (42 lb 1.7 oz) Prosthesis Weight 0 kg (0 lb) Post-Treatment Weight (kg) 75.3 Treatment Weight Change (kg) 4.1 kg Day Target Weight (kg) 75.5 Post Sitting/Lying BP 164/84 Post Sitting/Lying pulse 63 Temp 36.6 ??C (97.9 ??F) Temp src Temporal Minutes Short -250 Post access assessment AVF/AFG Hemostasis achieved Yes Note 20 min hold arterial rebleed Orientation Alert and Oriented x3 Yes Time Yes Place Yes Person Yes Cooperative Yes Disoriented No Discharge Ambulation Methods Departs via w/c;With patient transport Wrap up items Patient Response to Treatment Tolerated tx well. Removed 4.4L UF goal without difficulty. Comments No issues during tx, no concerns voiced post tx. documented in this encounter Plan of Treatment Upcoming Encounters Date Type Department Care Team (Late st Contact Info) Description 12/06/2024 6:45 EST Treatment [facility] [place] [address] [place], [place] [id number] Carlota Jin MD 1 [facility], [address] [phone] 12/08/2024 6:45 EST Treatment [facility] [place] [address] [place], [place] [id number] Carlota Jin MD [address] [phone] 12/11/2024 6:45 EST Treatment [facility] [place] [address] [place], [place] [id number] Carlota Jin MD [address] [phone] 12/13/2024 6:45 EST Treatment [facility] [place] [address] [place], [place] [id number] Carlota Jin MD [address] [phone] 12/15/2024 6:45 EST Treatment [facility] [place] [address] [place], [place] [id number] Carlota Jin MD [address] [phone] 12/18/2024 6:45 EST Treatment [facility] [place] [address] [place], [place] [id number] Carlota Jin MD 1 [facility], [facility] 2 [place] [phone] 12/20/2024 6:45 EST Treatment [facility] [place] [address] [place], [place] [id number] Carlota Jin MD 1 [facility], [facility] 2 [place] [phone] 12/22/2024 6:45 EST Treatment [facility] [address] [place], [place] [id number] Carlota Jin MD 1 [facility], [facility] 2 [place] [phone] 12/25/2024 6:45 EST Treatment [facility] [address] [place], [place] [address] Carlota Jin MD 1 [facility], [facility] 2 [place] [phone] 12/27/2024 6:45 EST Treatment [facility] [place] [address] [place], [place] [id number] Carlota Jin MD 1 [facility], [facility] 2 [place] [phone] 12/29/2024 6:45 EST Treatment [facility] [address] [place], [place] [id number] Carlota Jin MD 1 [facility], [facility] 2 [place] [phone] 01/01/2025 6:45 EDT Treatment [facility] [place] [address] [place] [address] Carlota Jin MD 1 [facility], [facility] 2 [place] [phone] 01/03/2025 6:45 EDT Treatment [facility] [place] [address] [place] [address] Carlota Jin MD 1 [facility], [facility] 2 [place] [phone] 01/05/2025 6:45 EDT Treatment [facility] [place] [address] [place] [address] Carlota Jin MD 1 [facility], [facility] 2 [place] [phone] 01/08/2025 6:45 EDT Treatment [facility] [place] [address] [place] [address] Carlota Jin MD 1 [facility], [facility] 2 [place] [phone] 01/10/2025 6:45 EDT Treatment [facility] [place] [address] [place], [place] [id number] Carlota Jin MD 1 [facility], [facility] 2 [place] [phone] 01/12/2025 6:45 EDT Treatment [facility] [place] [address] [place], [place] [address] Carlota Jin MD 1 [facility], [facility] 2 [place] [phone] 01/15/2025 6:45 EDT Treatment [facility] [place] [address] [place], [place] [id number] Carlota Jin MD 1 [facility], [address] [phone] 01/17/2025 6:45 EDT Treatment [facility] [place] [address] [place], [place] [id number] Carlota Jin MD 1 [facility], [facility] 2 [place] [phone] 01/19/2025 6:45 EDT Treatment [facility] [place] [address] [place], [place] [address] Carlota Jin MD 1 [facility], [facility] 2 [place] [phone] 01/22/2025 6:45 EDT Treatment [facility] [place] [address] [place], [place] [id number] Carlota Jin MD 1 [facility], [facility] 2 [place] [phone] 01/24/2025 6:45 EDT Treatment [facility] [place] [address] [place], [place] [address] Carlota Jin MD 1 [facility], [facility] 2 [place] [phone] 01/26/2025 6:45 EDT Treatment [facility] [place] [address] [place], [place] [id number] Carlota Jin MD 1 [facility], [address] [phone] 01/29/2025 6:45 EDT Treatment [facility] [place] [address] [place], [place] [id number] Carlota Jin MD 1 [facility], [address] [phone] 01/31/2025 6:45 EDT Treatment [facility] [place] [address] [place], [place] [id number] Carlota Jin MD [address] [phone] 02/02/2025 6:45 EDT Treatment [facility] [place] [address] [place], [place] [id number] Carlota Jin MD [address] [phone] 02/05/2025 6:45 EDT Treatment [facility] [place] [address] [place], [place] [id number] Carlota Jin MD 1 [facility], [facility] 2 [place] [phone] 02/07/2025 6:45 EDT Treatment [facility] [place] [address] [place], [place] [address] Carlota Jin MD 1 [facility], [facility] 2 [place] [phone] 02/09/2025 6:45 EDT Treatment [facility] [place] [address] [place], [place] [id number] Carlota Jin MD 1 [facility], [facility] 2 [place] [phone] 02/12/2025 6:45 EDT Treatment [facility] [place] [address] [place], [place] [address] Carlota Jin MD 1 [facility], [address] [phone] 02/14/2025 6:45 EDT Treatment [facility] [place] [address] [place] [address] Carlota Jin MD 1 [facility], [facility] 2 [place] [phone] 02/16/2025 6:45 EDT Treatment [facility] [place] [address] [place], [place] [id number] Carlota Jin MD 1 [facility], [facility] 2 [place] [phone] 02/19/2025 6:45 EDT Treatment [facility] [place] [address] [place], [place] [id number] Carlota Jin MD 1 [facility], [facility] [address] [place] [phone] 02/21/2025 6:45 EDT Treatment [facility] [place] [address] [place] [address] Carlota Jin MD 1 [facility], Level [address] [place] [phone] documented as of this encounter Procedures Procedure Name Priority Date/Time Associated Diagnosis Comments POTASSIUM Routine 07/10/2024 6:27 EDT ESRD (end stage renal disease) ([facility]) HEMODIALYSIS Routine 07/10/2024 6:21 EDT ESRD (end stage renal disease) ([facility]) documented in this encounter Results * (ABNORMAL) POTASSIUM (07/10/2024 6:27 EDT) Potassium 7.5(HH) 3.5 - 5.0 mmol/L 07/10/2024 22:06 EDT [facility] Blood VENOUS BLOOD / Unknown Venipuncture / Unknown 07/10/2024 6:27 EDT 07/10/2024 6:27 EDT us Carlota Jin MD CHEMISTRY & BLOOD GAS ORD ERABLES Final Result [facility] [address] [place] [address] documented in this encounter Visit Diagnoses Diagnosis ESRD (end stage renal disease) ([facility])- Primary End stage renal disease Hypoalbuminemia Other disorders of plasma protein metabolism Secondary hyperparathyroidism ([facility]) Secondary hyperparathyroidism (of renal origin) documented in this encounter Administered Medications Inactive Administered Medications - up to 3 most recent administrations Medication Order MAR Action Action Date Dose Rate Site calcium carbonate (TUMS) tablet 500 mg (200 mg elemental calcium) 2 Tablet 2 Tablet, oral, ONCE IN DIALYSIS, 1 dose, On Wed07/10/24 at 0645, Routine, DialysisIndications:ESRD (end stage renal disease) ([facility]),Secondary hyperparathyroidism ([facility]) Given 07/10/2024 6:41 EDT 2 Tablets heparin injection 5,000 Units 5,000 Units, intravenous, ONCE IN DIALYSIS, 1 dose, On Wed07/10/24 at 0645, Routine, Dialysis, Now x1 bolus 2600 units to be given at the beginning of dialysis 800 units/hour to be given over the course of dialysis (5000 units total). Stop 1 hour prior to end of treatment. To be administered per Policy [id number].Indications:ESRD (end stage renal disease) ([facility]) Given 07/10/2024 6:39 EDT 5,000 Units LiquaCel liquid protein liquid 30 mL 30 mL, oral, ONCE IN DIALYSIS, 1 dose, On Wed07/10/24 at 0645, Patient's flavor preference: either, RoutineIndications:ESRD (end stage renal disease) ([facility]),Hypoalbuminemia Given 07/10/2024 6:41 EDT 30 mL documented in this encounter Orders Dialysis Count Last Ordered Date First Orde red Date HEMODIALYSIS 1 07/10/2024 documented in this encounter Care Teams Patient Safety Manager Relationship Specialty Start Date End Date Ken Greer MD [address] [place] [address] PCP - General 07/07/23 Kiel Powers Video Game Technician Nephrology 05/31/24 documented as of this encounter
--- OUTSIDE RECORDS SUMMARY | 2024-12-05 12:00 | XMS_ITS | Encounter Summary ---
Author Organization [facility] Address [address] [place] [address] Care Team Providers Care Manager Supply Name Role Phone Ken Greer MD Primary Care Provider [phone] Kiel Powers Unavailable Unavailable Reason for Referral * Radiology Services (Routine/Next Available) - Authorization Not Required Specialty Diagnoses / Procedures Referred By Nader gardiner Referred To Contact Diagnoses ESRD (end stage renal disease) ([facility]) Procedures IR AVF (DIAGNOSTIC/PLASTY) LEFT Carlota Jin MD [address] [place] [phone] Phone: tel: fax: Referral ID Status Reason Start Date Expiration Date Visits Requested Visits Authorized [id number] Authorization Not Required 07/12/2024 1 1 Reason for Visit * Episode Based Medications (Routine) - New Request Specialty Diagnoses / Procedures Referred By Nader gardiner Referred To Contact Diagnoses ESRD (end stage renal disease) ([facility]) Carlota Jin MD [address] [place] [address] 2 [place] [address] Phone: tel: fax: [facility] [address] [place] [address] Phone: tel: fax: Referral ID Status Reason Start Date Expiration Date V isits Requested Visits Authorized [id number] New Request 03/17/2024 1 1 Encounter Details Date Type Department Care Team (Latest Contact Info) Description 07/12/2024 6:45 EDT Treatment [facility] [place] [address] [place] [address] Carlota Jin MD 1 [facility], Level 2 [place] [address] ESRD (end stage renal disease) ([facility]) (Primary Dx); Hypoalbuminemia; Secondary hyperparathyroidism ([facility]) Social History Tobacco Use Types Packs/Day Years Used Date Smoking Tobacco: Every Day Cigarettes 1 26.1 Started: 1998 Smokeless Tobacco: Never Alcohol Use Standard Drinks/Week Comments Yes 0 (1 standard drink = 0.6 oz pur e alcohol) Socially [facility] Utilities Answer Date Recorded In the past 12 months has th e [employer], gas, oil, or water [employer] threatened to shut off services in your [...] time in the past 12 m [facility], were you homeless or living in [...] the past 12 months has th e [employer], gas, oil, or water [employer] threatened to shut off services in your [...] - Temperature - - Respiratory Rate 16 07/12/2024 0625 EDT Oxygen Saturation - - Inhaled Oxygen Concentration - - Weight 79.2 kg (174 lb 9.7 oz) 07/12/2024 0630 E DT Height - - Body Mass Index 25.05 12/20/2023 2202 EST documented in this encounter [...] Flowsheet Note - Marcela Cox RN - 07/12/2024 1408 EDT 07/12/24 1046 Post-Hemodialysis Assessment Total Blood Processed (L) 90.25 Liters On Line Clearance: spKt/V 1.52 spKt/V Dialyzer Clearance Lightly streaked Treatment UFR (ml:kg:hr) 13.59 ml:kg:hr Critline refill Not done Fluid Removed (L) 4.2 L Post-Dialysis Scale Weight 94.1 kg (207 lb 7.3 oz) Wheelchair Weight 19 kg (41 lb 14.2 oz) Prosthesis Weight 0 kg (0 lb) Post-Treatment Weight (kg) 75.1 Treatment Weight Change (kg) 4.1 kg Day Target Weight (kg) 75.5 Post Sitting/Lying BP 155/85 Post Sitting/Lying pulse 65 Temp 36.4 ??C (97.5 ??F) Temp src Temporal Minutes Short -241 Post access assessment AVF/AFG Hemostasis achieved Yes Note pt rebled twice. Pt held with blue clamps for 20 minutes in total. Orientation Alert and Oriented x3 Yes Time [...] Contact Info) Description 12/06/2024 6:45 EST Treatment [facility] [place] [address] [place], [place] [phone] Carlota Jin MD [address] [place] [phone] 12/08/2024 6:45 EST Treatment [facility] [address] [place], [place] [phone] Carlota Jin MD 1 [facility] 2 [place] [address] 12/11/2024 6:45 EST Treatment [facility] [address] [place] [address] Carlota Jin MD [address] [place] [address] 2 [place] [phone] 12/13/2024 6:45 EST Treatment [facility] [place] [address] [place], [place] [address] Carlota Jin MD 1 [facility] 2 [place] [phone] 12/15/2024 6:45 EST Treatment [facility] [place] [address] [place], [place] [phone] Carlota Jin MD 1 [facility], [facility] 2 [place] [phone] 12/18/2024 6:45 EST Treatment [facility] [place] [address] [place], [place] [phone] Carlota Jin MD [address] [facility], [facility] 2 [place] [phone] 12/20/2024 6:45 EST Treatment [facility] [place] [address] [place], [place] [phone] Carlota Jin MD [address] [facility], [address] [phone] 12/22/2024 6:45 EST Treatment [facility] [address] [place], [place] [phone] Carlota Jin MD [address] [facility], [facility] 2 [place] [phone] 12/25/2024 6:45 EST Treatment [facility] [address] [place], [place] [phone] Carlota Jin MD 1 [facility], [facility] 2 [place] [phone] 12/27/2024 6:45 EST Treatment [facility] [place] [address] [place], [place] [phone] Carlota Jin MD 1 [facility], [facility] 2 [place] [phone] 12/29/2024 6:45 EST Treatment [facility] [address] [place], [place] [phone] Carlota Jin MD 1 [facility], [facility] 2 [place] [phone] 01/01/2025 6:45 EDT Treatment [facility] [address] [place], [place] [phone] Carlota Jin MD [address] [facility], [facility] 2 [place] [phone] 01/03/2025 6:45 EDT Treatment [facility] [address] [place], [place] [phone] Carlota Jin MD 1 [facility], [facility] 2 [place] [phone] 01/05/2025 6:45 EDT Treatment [facility] [address] [place], [place] [phone] Carlota Jin MD [address] [facility], [facility] 2 [place] [phone] 01/08/2025 6:45 EDT Treatment [facility] [place] [address] [place], [place] [phone] Carlota Jin MD [address] [facility], [facility] 2 [place] [phone] 01/10/2025 6:45 EDT Treatment [facility] [place] [address] [place], [place] [phone] Carlota Jin MD 1 [facility], [address] [phone] 01/12/2025 6:45 EDT Treatment [facility] [place] [address] [place], [place] [phone] Carlota Jin MD 1 [facility], [address] [phone] 01/15/2025 6:45 EDT Treatment [facility] [place] [address] [place], [place] [phone] Carlota Jin MD 1 [facility], [address] [phone] 01/17/2025 6:45 EDT Treatment [facility] [place] [address] [place], [place] [phone] Carlota Jin MD 1 [facility], [facility] 2 [place] [phone] 01/19/2025 6:45 EDT Treatment [facility] [place] [address] [place], [place] [phone] Carlota Jin MD 1 [facility], [facility] 2 [place] [phone] 01/22/2025 6:45 EDT Treatment [facility] [place] [address] [place], [place] [address] Carlota Jin MD 1 [facility], [facility] 2 [place] [phone] 01/24/2025 6:45 EDT Treatment [facility] [place] [address] [place], [place] [phone] Carlota Jin MD [address] [facility], [facility] 2 [place] [phone] 01/26/2025 6:45 EDT Treatment [facility] [place] [address] [place], [place] [address] Carlota Jin MD 1 [facility], [facility] 2 [place] [phone] 01/29/2025 6:45 EDT Treatment [facility] [place] [address] [place] [address] Carlota Jin MD 1 [facility], [facility] 2 [place] [phone] 01/31/2025 6:45 EDT Treatment [facility] [address] [place], [place] [address] Carlota Jin MD 1 [facility], [facility] 2 [place] [phone] 02/02/2025 6:45 EDT Treatment [facility] [address] [place], [place] [phone] Carlota Jin MD 1 [facility], [facility] 2 [place] [phone] 02/05/2025 6:45 EDT Treatment [facility] [address] [place], [place] [phone] Carlota Jin MD [address] [place] [address], [address] [phone] 02/07/2025 6:45 EDT Treatment [facility] [address] [place], [place] [phone] Carlota Jin MD [address] [place] [address], [address] [phone] 02/09/2025 6:45 EDT Treatment [facility] [place] [address] [place], [place] [phone] Carlota Jin MD [address] [place] [address], [facility] 2 [place] [phone] 02/12/2025 6:45 EDT Treatment [facility] [place] [address] [place], [place] [phone] Carlota Jin MD 1 [facility], [facility] 2 [place] [phone] 02/14/2025 6:45 EDT Treatment [facility] [place] [address] [place], [place] [phone] Carlota Jin MD 1 [facility], [facility] 2 [place] [phone] 02/16/2025 6:45 EDT Treatment [facility] [place] [address] [place], [place] [phone] Carlota Jin MD 1 [facility], [facility] 2 [place] [phone] 02/19/2025 6:45 EDT Treatment [facility] [place] [address] [place], [place] [phone] Carlota Jin MD 1 [facility], [address] [phone] 02/21/2025 6:45 EDT Treatment [facility] [place] [address] [place], [place] [phone] Carlota Jin MD 1 [facility], [facility] 2 [place] [phone] Scheduled Orders Name Type Priority Associated Diagnoses Orde r Schedule IR AVF (DIAGNOSTIC/PLASTY) LEFT Imaging Routine ESRD (end stage renal disease) ([facility]) Expected: 07/19/2024 (Approximate), Expires: 01/09/2026 documented as of this encounter Procedures Procedure Name Priority Date/Time Associated Diagnosis Comments PTT Routine 07/12/2024 12:34 EDT COMPLETE BLOOD COUNT Routine 07/12/2024 6:32 EDT ESRD (end stage renal disease) ([facility]) HEMODIALYSIS Routine 07/12/2024 6:25 EDT ESRD (end stage renal disease) ([facility]) documented in this encounter Results * PTT (07/12/2024 12:34 EDT) PTT 34 26 - 37 secs 07/12/2024 21:36 [facility] Blood VENOUS BLOOD / Unknown Venipuncture / Unknown 07/12/2024 12:34 EDT 07/12/2024 12:34 EDT us Carlota Jin MD HEMATOLOGY & PF4 ORDERABL ES Final Result [facility] [address] [place] [address] * (ABNORMAL) COMPLETE BLOOD COUNT (07/12/2024 6:32 EDT) WBC 8.38 4.00 - 10.40 K/cmm 07/12/2024 21:26 [facility] RBC 4.60 4.36 - 5.78 M/cmm 07/12/2024 21:26 [facility] Hemoglobin 12.6(L) 13.8 - 17.3 g/dL 07/12/2024 21:26 [facility] HCT 39.8 39.5 - 50.2 % 07/12/2024 21:26 [facility] MCV 87 81 - 95 fL 07/12/2024 21:26 [facility] MCH 27.4(L) 27.6 - 33.0 pg 07/12/2024 21:26 [facility] MCHC 31.7(L) 32.8 - 36.4 g/dL 07/12/2024 21:26 [facility] RDW-CV 18.3(H) <14.2 % 07/12/2024 21:26 [facility] RDW-SD 58.0(H) <46.0 fl 07/12/2024 21:26 [facility] PLT 180 141 - 377 K/cmm 07/12/2024 21:26 [facility] MPV 11.7 9.5 - 12.7 fL 07/12/2024 21:26 EDT [facility] Blood VENOUS BLOOD / Unknown Venipuncture / Unknown 07/12/2024 6:32 EDT 07/12/2024 6:33 EDT Skye Gomez RESILIENT TILE INSTALLER HEMATOLOGY & PF4 ORDERABLES Final Result [facility] [address] [place], [place] [phone] documented in this encounter Visit Diagnoses Diagnosis ESRD (end stage renal disease) ([facility])- Primary End stage renal disease Hypoalbuminemia Other disorders of plasma protein metabolism Secondary hyperparathyroidism ([facility]) Secondary hyperparathyroidism (of renal origin) documented in this encounter Administered Medications Inactive Administered Medications - up to 3 most recent administrations Medication Order MAR Action Action Date Dose Rate Site acetaminophen (TYLENOL) tablet 650 mg 650 mg, oral, EVERY 4 HOURS PRN, Starting on Wed07/12/24 at 0658, Until Wed07/12/24 at 1609, Pain, Routine, DialysisIndications:ESRD (end stage renal disease) ([facility]) Given 07/12/2024 6:58 EDT 650 mg calcium carbonate (TUMS) tablet 500 mg (200 mg elemental calcium) 2 Tablet 2 Tablet, oral, ONCE IN DIALYSIS, 1 dose, On Wed07/12/24 at 0645, Routine, DialysisIndications:ESRD (end stage renal disease) ([facility]),Secondary hyperparathyroidism ([facility]) Given 07/12/2024 6:46 EDT 2 Tablets heparin injection 3,000 Units 3,000 Units, intravenous, ONCE IN DIALYSIS, 1 dose, On Wed07/12/24 at 0645, Routine, Dialysis, Now x1 bolus 1500 units to be given at the beginning of dialysis 500 units/hour to be given over the course of dialysis (3000 units total). Stop 1 hour prior to end of treatment. To be administered per Policy [id number].Indications:ESRD (end stage renal disease) ([facility]) Given 07/12/2024 6:45 EDT 3,000 Units LiquaCel liquid protein liquid 30 mL 30 mL, oral, ONCE IN DIALYSIS, 1 dose, On Wed07/12/24 at 0645, Patient's flavor preference: either, RoutineIndications:ESRD (end stage renal disease) ([facility]),Hypoalbuminemia Given 07/12/2024 6:46 EDT 30 mL documented in this encounter Orders Dialysis Count Last Ordered Date First Orde red Date HEMODIALYSIS 1 07/12/2024 documented in this encounter Care Teams Manager Supply Relationship Specialty Start Date End Date Ken Greer MD [facility] [place] [address] PCP - General 07/07/23 Kiel Powers Outreach And Education Social Worker Nephrology 05/31/24 documented as of this encounter
--- OUTSIDE RECORDS SUMMARY | 2024-12-05 12:00 | XMS_ITS | Encounter Summary ---
Author Organization [facility] Address [address] [place] [address] Care Team Providers Care Hospice Care Transitions Coordinator Name Role Phone Ken Greer MD Primary Care Provider [phone] Kiel Powers Unavailable Unavailable Encounter Details Date Type Department Care Team (Late st Contact Info) Description 07/07/2024 Documentation Visit [facility] [address] [place] [address] Shelley Eden, RD [address] [place] [address] Social History Tobacco Use Types Packs/Day Years Used Date Smoking Tobacco: Every Day Cigarettes 1 26.1 Started: 1998 Smokeless Tobacco: Never Alcohol Use Standard Drinks/Week Comments Yes 0 (1 standard drink = 0.6 oz pur e alcohol) Socially [facility] Utilities Answer Date Recorded In the past 12 months has e [employer], gas, oil, or water [employer] threatened to shut off services in your [...] time in the past 12 m [facility], were you homeless or living in [...] the past 12 months has th e [employer], gas, oil, or water [employer] threatened to shut off services in your [...] Progress Notes * Shelley Eden, RD - 07/07/2024 1009 EDT Dialysis Dietitian's Monthly Assessment Met with patient on phone call with 07/03/24 Family/caregivers or others present: lives with his Information obtained from: patient Recent Hospitalizations: 03/13-03/14/24 COVID , 02/18/24-02/25/24 BKA, 11/07-10/31/23 COVID and diabetic foot infection 02/20 BKA Left 04/25/24 Right BKA Subjective: Spoke with Dans today Xander sleeps his entire run and is hard to hold a conversationwith. Hoda reports that Mukesh wounds have healed up very well and they are supposed to start workingtoward prosthetic fitting. We discussed high k level and high fluid - Hoda reports that Xander has been eating very well and after his meal he has wanted soup - lobser bisque - discussed that since it is a milk based soup there is likely high k content - additional encouraged to read label for any potassium chloride that may be added in the can. We discussed other sources of k - such as his coffee with added milk. Xander was not interested in talking about things today Appetite: Very good / increased Appetite scale (0-10): No number given Gastrointestinal: Some recent N/V Skin integrity: S/p amputations - now all healed Diabetes: Yes all over 98-400 recently Diabetes Management: Self Monitoring of Blood Glucose on insulin but does not check Diet Recall: B none L went to the fair pulled pork , fries, onion rings and mac and cheese D BLT and lobster bisquie Fluid: Water, Coffee, Milk, Juice Alcohol: will need to f/u Prescribed Weight:75.5 Post-Dialytic Weight: 76.4 06/26/2024 10:48 06/28/2024 11:47 06/30/2024 10:59 07/03/2024 10:49 07/05/2024 10:58 - ( Kg ) 78.6 75.3 74.7 76.5 76.4 UFR: 06/26/2024 10:48 06/28/2024 11:47 06/30/2024 10:59 07/03/2024 10:49 07/05/2024 10:58 - mL/Kg/hr 15.46 ml:kg:hr 18.23 ml:kg:hr 14.94 ml:kg:hr 14.75 ml:kg:hr 14.39 ml:kg:hr URR: 68.657 (Calculated from:; BUN Pre-Dialysis: 67 mg/dL at 06/26/2024 11:41; BUN Post-Dialysis: 21 mg/dL at 06/26/2024 11:41) Kt/V: 1.45 (Calculated from:; BUN Pre-Dialysis: 67 mg/dL at 06/26/2024 11:41; BUN Post-Dialysis: 21 mg/dL at 06/26/2024 11:41; Pre-Treatment Weight (kg): 83.5 at 06/26/2024 6:31; Post-Treatment Weight (kg): 78.6 at 06/26/2024 10:48; Duration of Treatment (minutes): 242 minutes at 06/26/2024 10:48) PCR: 1.19 (Calculated from:; BUN Pre-Dialysis: 67 mg/dL at 06/26/2024 11:41; BUN Post-Dialysis: 21 mg/dL at 06/26/2024 11:41; Pre-Treatment Weight (kg): 83.5 at 06/26/2024 6:31; Post-Treatment Weight (kg):78.6 at 06/26/2024 10:48; Duration of Treatment (minutes): 242 minutes at 06/26/2024 10:48; Age: 58 years) Pertinent Labs include: Lab Results Component Value Date LABALBU 3.2 (L) 06/26/2024 LABALBU 2.9 (L) 06/02/2024 Lab Results Component Value Date BUNPRE 67 (H) 06/26/2024 BUNPRE 67 (H) 06/26/2024 NA 132 (L) 06/26/2024 NA 140 06/02/2024 K 7.1 (H) 06/26/2024 K 5.1 (H) 06/02/2024 CL 96 06/26/2024 CL 100 06/02/2024 CO2 22 06/26/2024 CO2 24 06/02/2024 MG 2.0 06/26/2024 MG 1.9 06/02/2024 CALCIUM 8.6 06/26/2024 CALCIUM 8.3 (L) 06/02/2024 CALCCA 9.2 06/26/2024 CALCCA 9.2 06/02/2024 PHOS 8.9 (H) 06/26/2024 PHOS 6.5 (H) 06/02/2024 ALKPHOS 124 06/26/2024 ALKPHOS 118 06/02/2024 PTH 250 (H) 05/01/2024 PTH 329 (H) 01/24/2024 PLT 214 07/05/2024 PLT 281 06/28/2024 MCV 88 07/05/2024 MCV 88 06/28/2024 [id number] 607 10/27/2023 [id number] 688 11/16/2022 VITD 21 (L) 10/27/2023 VITD 27 (L) 11/16/2022 FOLATE >24.0 10/27/2023 FOLATE 17.3 11/16/2022 HGBA1C 11.6 (H) 11/07/2023 Protein/calorie supplements: liqaucel on HD days protein powder at home (orgain)- recmd to restart Renal/other vitamins: cholecalciferol (Vitamin D3) - 2000 IU daily Started renal vitamin Herbal/OTC supplements: None reported CKD/MBD medications: sevelamer hydrochloride - 2 with meals - has been encouraging him to take - recmd 3 at meals discussed with PROGRAM DIRECTOR CABLE TELEVISION 2 tums at HD Other Medications Relevant to Nutrition: atorvastatin - 40 mg sevelamer carbonate - 800 mg insulin aspart U-100 - 100 unit/mL (3 [...] adjusted for amps Weight/Volume status: fluid gains running higher 3.7-6.7 UFR 12-14 Electrolytes: K-high - will ask team about recheck of level - encouraged to avoid high k food items - discussed with Na low - suspect r/t high fluid gains Mg WNL Mineral Bone Disease: Ca WNL Phos high - on 2 tums at HD, recmd increase renvela to 3 TID PTH WNL - no calcitriol Vitamin Status: [...] March 2024 Fluid education - April 2024 Assessment of Understanding: needs reinforcement Medical Nutrition Therapy Plan and Recommendation Revd high phos foods to limit monthly - Encourage consistency with binders - recmd increase in renvela - discuss with PROGRAM DIRECTOR CABLE TELEVISION Cont liquacel at HD restart protein powder at home -reinforced high protein needs Cont vitamin D3, and renal vitamin 4. Revd fluid management tips and encouraged to avoid salt 5. Discussed high k level and foods to limit -? Recheck lab Shelley Eden RD, CD documented in this encounter Plan of Treatment Upcoming Encounters Date Type Department Care Team (Late st Contact Info) Description 12/06/2024 6:45 EST Treatment [facility] [place] [address] [place], [place] [id number] Carlota Jin MD [address] [phone] 12/08/2024 6:45 EST Treatment [facility] [address] [place], [place] [id number] Carlota Jin MD [address] [phone] 12/11/2024 6:45 EST Treatment [facility] [address] [place], [place] [id number] Carlota Jin MD [address] [phone] 12/13/2024 6:45 EST Treatment [facility] [address] [place], [place] [id number] Carlota Jin MD [address] [phone] 12/15/2024 6:45 EST Treatment [facility] [place] [address] [place], [place] [id number] Carlota Jin MD 1 [facility], [facility] [address] [place] [phone] 12/18/2024 6:45 EST Treatment [facility] [address] [place], [place] [id number] Carlota Jin MD 1 [facility], [facility] [address] [place] [phone] 12/20/2024 6:45 EST Treatment [facility] [address] [place] [address] Carlota Jin MD 1 [facility], [facility] [address] [place] [phone] 12/22/2024 6:45 EST Treatment [facility] [place] [address] [place] [address] Carlota Jin MD 1 [facility], [address] [place] [phone] 12/25/2024 6:45 EST Treatment [facility] [address] [place], [place] [id number] Carlota Jin MD 1 [facility], [address] [place] [phone] 12/27/2024 6:45 EST Treatment [facility] [address] [place], [place] [address] Carlota Jin MD 1 [facility], [address] [phone] 12/29/2024 6:45 EST Treatment [facility] [address] [place] [address] Carlota Jin MD 1 [facility], [address] [phone] 01/01/2025 6:45 EDT Treatment [facility] [address] [place], [place] [id number] Carlota Jin MD 1 [facility], [address] [phone] 01/03/2025 6:45 EDT Treatment [facility] [address] [place] [address] Carlota Jin MD 1 [facility], [address] [phone] 01/05/2025 6:45 EDT Treatment [facility] [address] [place], [place] [id number] Carlota Jin MD [address] [phone] 01/08/2025 6:45 EDT Treatment [facility] [address] [place], [place] [address] Carlota Jin MD 1 [facility], [address] [phone] 01/10/2025 6:45 EDT Treatment [facility] [address] [place], [place] [id number] Carlota Jin MD 1 [facility], [facility] [address] [place] [phone] 01/12/2025 6:45 EDT Treatment [facility] [place] [address] [place], [place] [id number] Carlota Jin MD 1 [facility], [address] [phone] 01/15/2025 6:45 EDT Treatment [facility] [address] [place], [place] [id number] Carlota Jin MD 1 [facility], [facility] [address] [place] [phone] 01/17/2025 6:45 EDT Treatment [facility] [address] [place], [place] [id number] Carlota Jin MD 1 [facility], [facility] [address] [place] [phone] 01/19/2025 6:45 EDT Treatment [facility] [place] [address] [place], [place] [id number] Carlota Jin MD 1 [facility], [facility] [address] [place] [phone] 01/22/2025 6:45 EDT Treatment [facility] [address] [place], [place] [id number] Carlota Jin MD 1 [facility], [facility] [address] [place] [phone] 01/24/2025 6:45 EDT Treatment [facility] [address] [place], [place] [id number] Carlota Jin MD 1 [facility], [address] [phone] 01/26/2025 6:45 EDT Treatment [facility] [address] [place], [place] [id number] Carlota Jin MD 1 [facility], [address] [phone] 01/29/2025 6:45 EDT Treatment [facility] [place] [address] [place], [place] [id number] Carlota Jin MD 1 [facility], [address] [phone] 01/31/2025 6:45 EDT Treatment [facility] [place] [address] [place], [place] [id number] Carlota Jin MD 1 [facility], [facility] [address] [place] [phone] 02/02/2025 6:45 EDT Treatment [facility] [address] [place], [place] [id number] Carlota Jin MD 1 [facility], [facility] [address] [place] [phone] 02/05/2025 6:45 EDT Treatment [facility] [place] [address] [place], [place] [address] Carlota Jin MD 1 [facility], [facility] [address] [place] [phone] 02/07/2025 6:45 EDT Treatment [facility] [place] [address] [place], [place] [id number] Carlota Jin MD 1 [facility], [facility] [address] [place] [phone] 02/09/2025 6:45 EDT Treatment [facility] [address] [place], [place] [address] Carlota Jin MD 1 [facility], [facility] [address] [place] [phone] 02/12/2025 6:45 EDT Treatment [facility] [address] [place] [address] Carlota Jin MD 1 [facility], [facility] [address] [place] [phone] 02/14/2025 6:45 EDT Treatment [facility] [place] [address] [place], [place] [address] Carlota Jin MD 1 [facility], [facility] [address] [place] [phone] 02/16/2025 6:45 EDT Treatment [facility] [place] [address] [place], [place] [id number] Carlota Jin MD 1 [facility], [facility] [address] [place] [phone] 02/19/2025 6:45 EDT Treatment [facility] [address] [place], [place] [id number] Carlota Jin MD 1 [facility], [facility] [address] [place] [phone] 02/21/2025 6:45 EDT Treatment [facility] [address] [place], [place] [id number] Carlota Jin MD 1 [facility], [facility] [address] [place] [phone] documented as of this encounter Visit Diagnoses Not on filedocumented in this encounter Care Teams Hospice Care Transitions Coordinator Relationship Specialty Start Date End Date Ken Greer MD [facility] [place] [address] PCP - General 07/07/23 Kiel Powers Relocation Associate Nephrology 05/31/24 documented as of this encounter
--- OUTSIDE RECORDS SUMMARY | 2024-12-05 12:00 | XMS_ITS | Encounter Summary ---
Author Organization [facility] Address [address] [place] [address] Care Team Providers Care Baseball Player Name Role Phone Ken Greer MD Primary Care Provider [phone] Kiel Powers Unavailable Unavailable Reason for Visit * Episode Based Medications (Routine) - New Request Specialty Diagnoses / Procedures Referred By Nader gardiner Referred To Contact Diagnoses ESRD (end stage renal disease) ([facility]) Carlota Jin MD [address] [place] [address] [address] [place] [address] Phone: tel: fax: [facility] [place] [address] [place] [address] Phone: tel: fax: Referral ID Status Reason Start Date Expiration Date V isits Requested Visits Authorized [id number] New Request 03/17/2024 1 1 Encounter Details Date Type Department Care Team (Latest Contact Info) Description 07/17/2024 6:45 EDT Treatment [facility] [address] [place], [place] [phone] Carlota Jin MD [address] [place] [address], [facility] [address] [place] [address] ESRD (end stage renal disease) ([facility]) (Primary Dx); Hypoalbuminemia; Secondary hyperparathyroidism ([facility]) Social History Tobacco Use Types Packs/Day Years Used Date Smoking Tobacco: Every Day Cigarettes 1 26.1 Started: 1998 Smokeless Tobacco: Never Alcohol Use Standard Drinks/Week Comments Yes 0 (1 standard drink = 0.6 oz pur e alcohol) Socially [facility] Utilities Answer Date Recorded In [...] any time in the past 12 m [facility], were you homeless or living in a long term (including now)? No 05/30/2024 Interpersonal Safety Answer Date Record ed How often does anyone, martin lyosn family, hit, punch or physically hurt you? [...] the past 12 months has th e [employer], gas, oil, or water [employer] threatened to shut off services in your [...] - Temperature - - Respiratory Rate 16 07/17/2024 0618 EDT Oxygen Saturation - - Inhaled Oxygen Concentration - - Weight 79.7 kg (175 lb 11.3 oz) 07/17/2024 0621 EDT Height - - Body Mass Index 25.21 12/20/2023 2202 EST documented in this encounter [...] Flowsheet Note - Marcela Cox RN - 07/17/2024 1117 EDT 07/17/24 1016 Post-Hemodialysis Assessment Total Blood Processed (L) 77.46 Liters On Line Clearance: spKt/V 1.33 spKt/V Dialyzer Clearance Lightly streaked Treatment UFR (ml:kg:hr) 16.32 ml:kg:hr Final Critline Profile (%/hr) -1.47 Final Profile Profile A Critline refill Not done Fluid Removed (L) 4.41 L Post-Dialysis Scale Weight 96.6 kg (212 lb 15.4 oz) Wheelchair Weight 21.4 kg (47 lb 2.9 oz) Prosthesis Weight 0 kg (0 lb) Post-Treatment Weight (kg) 75.2 Treatment Weight Change (kg) 4.5 kg Day Target Weight (kg) 75.9 Post Sitting/Lying BP (!) 186/98 Post Sitting/Lying pulse 69 Temp 35.9 ??C (96.6 ??F) Temp src Temporal Minutes Short -220 Post access assessment AVF/AFG Hemostasis achieved Yes Note Held pt's sites for 10 minutes with venous site continually bleeding. Bandages replaced, held for another 10 minutes with clamps Orientation Alert and Oriented x3 Yes Time Yes Place Yes Person Yes Cooperative Yes Disoriented No Discharge Ambulation Methods Departs via w/c Wrap up items Patient Response to Treatment Removed 4.4L UF goal. See event- rinseback performed 24 min early d/tN/V. This improved post rinseback. Comments no concerns voiced post tx. documented in this encounter Plan of Treatment Upcoming Encounters Date Type Department Care Team (Late st Contact Info) Description 12/06/2024 6:45 EST Treatment [facility] [place] [address] [place], [place] [phone] Carlota Jin MD 1 [facility], [facility] [address] [place] [phone] 12/08/2024 6:45 EST Treatment [facility] [place] [address] [place], [place] [phone] Carlota Jin MD 1 [facility], [address] [phone] 12/11/2024 6:45 EST Treatment [facility] [place] [address] [place], [place] [phone] Carlota Jin MD [address] [phone] 12/13/2024 6:45 EST Treatment [facility] [place] [address] [place], [place] [phone] Carlota Jin MD [address] [phone] 12/15/2024 6:45 EST Treatment [facility] [place] [address] [place], [place] [phone] Carlota Jin MD 1 [facility], Level [address] [place] [phone] 12/18/2024 6:45 EST Treatment [facility] [place] [address] [place], [place] [address] Carlota Jin MD 1 [facility], [facility] [address] [place] [phone] 12/20/2024 6:45 EST Treatment [facility] [place] [address] [place], [place] [phone] Carlota Jin MD 1 [facility], [facility] [address] [place] [phone] 12/22/2024 6:45 EST Treatment [facility] [place] [address] [place], [place] [phone] Carlota Jin MD 1 [facility], [facility] [address] [place] [phone] 12/25/2024 6:45 EST Treatment [facility] [place] [address] [place] [address] Carlota Jin MD 1 [facility], [facility] [address] [place] [phone] 12/27/2024 6:45 EST Treatment [facility] [place] [address] [place], [place] [phone] Carlota Jin MD 1 [facility], [facility] [address] [place] [phone] 12/29/2024 6:45 EST Treatment [facility] [place] [address] [place], [place] [phone] Carlota Jin MD 1 [facility], [facility] [address] [place] [phone] 01/01/2025 6:45 EDT Treatment [facility] [place] [address] [place], [place] [phone] Carlota Jin MD [address] [place] [address], [address] [phone] 01/03/2025 6:45 EDT Treatment [facility] [place] [address] [place], [place] [phone] Carlota Jin MD [address] [place] [address], [address] [phone] 01/05/2025 6:45 EDT Treatment [facility] [place] [address] [place], [place] [phone] Carlota Jin MD [address] [place] [address], [facility] [address] [place] [phone] 01/08/2025 6:45 EDT Treatment [facility] [place] [address] [place], [place] [phone] Carlota Jin MD 1 [facility], [facility] [address] [place] [phone] 01/10/2025 6:45 EDT Treatment [facility] [place] [address] [place], [place] [phone] Carlota Jin MD 1 [facility], [facility] [address] [place] [phone] 01/12/2025 6:45 EDT Treatment [facility] [place] [address] [place], [place] [address] Carlota Jin MD 1 [facility], [facility] [address] [place] [phone] 01/15/2025 6:45 EDT Treatment [facility] [place] [address] [place] [address] Carlota Jin MD 1 [facility], [facility] [address] [place] [phone] 01/17/2025 6:45 EDT Treatment [facility] [place] [address] [place] [address] Carlota Jin MD 1 [facility], [facility] [address] [place] [phone] 01/19/2025 6:45 EDT Treatment [facility] [place] [address] [place] [address] Carlota Jin MD 1 [facility], [facility] [address] [place] [phone] 01/22/2025 6:45 EDT Treatment [facility] [place] [address] [place], [place] [phone] Carlota Jin MD 1 [facility], [facility] [address] [place] [phone] 01/24/2025 6:45 EDT Treatment [facility] [place] [address] [place], [place] [phone] Carlota Jin MD 1 [facility], [facility] [address] [place] [phone] 01/26/2025 6:45 EDT Treatment [facility] [place] [address] [place], [place] [phone] Carlota Jin MD 1 [facility], [facility] [address] [place] [phone] 01/29/2025 6:45 EDT Treatment [facility] [place] [address] [place] [address] Carlota Jin MD 1 [facility], [address] [phone] 01/31/2025 6:45 EDT Treatment [facility] [place] [address] [place], [place] [phone] Carlota Jin MD 1 [facility], [facility] [address] [place] [phone] 02/02/2025 6:45 EDT Treatment [facility] [place] [address] [place], [place] [phone] Carlota Jin MD 1 [facility], [facility] [address] [place] [phone] 02/05/2025 6:45 EDT Treatment [facility] [place] [address] [place], [place] [phone] Carlota Jin MD 1 [facility], [facility] [address] [place] [phone] 02/07/2025 6:45 EDT Treatment [facility] [place] [address] [place] [address] Carlota Jin MD 1 [facility], [facility] [address] [place] [phone] 02/09/2025 6:45 EDT Treatment [facility] [place] [address] [place], [place] [address] [phone] Carlota Jin MD 1 [facility], [facility] [address] [place] [phone] 02/12/2025 6:45 EDT Treatment [facility] [place] [address] [place] [address] Carlota Jin MD 1 [facility], [facility] [address] [place] [phone] 02/14/2025 6:45 EDT Treatment [facility] [place] [address] [place] [address] Carlota Jin MD 1 [facility], [facility] [address] [place] [phone] 02/16/2025 6:45 EDT Treatment [facility] [place] [address] [place], [place] [phone] Carlota Jin MD 1 [facility], [facility] [address] [place] [phone] 02/19/2025 6:45 EDT Treatment [facility] [place] [address] [place], [place] [phone] Carlota Jin MD 1 [facility], [facility] [address] [place] [phone] 02/21/2025 6:45 EDT Treatment [facility] [address] [place], [place] [phone] Carlota Jin MD 1 [facility], [facility] [address] [place] [phone] documented as of this encounter Procedures Procedure Name Priority Date/Time Associated Diagnosis Comments HEMODIALYSIS Routine 07/17/2024 6:18 EDT ESRD (end stage renal disease) ([facility]) documented in this encounter Visit Diagnoses Diagnosis ESRD (end stage renal disease) ([facility])- Primary End stage renal disease Hypoalbuminemia Other disorders of plasma protein metabolism Secondary hyperparathyroidism ([facility]) Secondary hyperparathyroidism (of renal origin) documented in this encounter Administered Medications Inactive Administered Medications - up to 3 most recent administrations Medication Order MAR Action Action Date Dose Rate Site acetaminophen (TYLENOL) tablet 650 mg 650 mg, oral, EVERY 4 HOURS PRN, Starting on Wed07/17/24 at 0858, Until Wed07/17/24 at 1317, Pain, Routine, DialysisIndications:ESRD (end stage renal disease) ([facility]) Given 07/17/2024 8:59 EDT 650 mg calcium carbonate (TUMS) tablet 500 mg (200 mg elemental calcium) 2 Tablet 2 Tablet, oral, ONCE IN DIALYSIS, 1 dose, On Wed07/17/24 at 0645, Routine, DialysisIndications:ESRD (end stage renal disease) ([facility]),Secondary hyperparathyroidism ([facility]) Given 07/17/2024 6:35 EDT 2 Tablets heparin injection 3,000 Units 3,000 Units, intravenous, ONCE IN DIALYSIS, 1 dose, On Wed07/17/24 at 0645, Routine, Dialysis, Now x1 bolus 1500 units to be given at the beginning of dialysis 500 units/hour to be given over the course of dialysis (3000 units total). Stop 1 hour prior to end of treatment. To be administered per Policy [id number].Indications:ESRD (end stage renal disease) ([facility]) Given 07/17/2024 6:42 EDT 3,000 Units LiquaCel liquid protein liquid 30 mL 30 mL, oral, ONCE IN DIALYSIS, 1 dose, On Wed07/17/24 at 0645, Patient's flavor preference: either, RoutineIndications:ESRD (end stage renal disease) ([facility]),Hypoalbuminemia Given 07/17/2024 6:35 EDT 30 mL documented in this encounter Orders Dialysis Count Last Ordered Date First Orde red Date HEMODIALYSIS 1 07/17/2024 documented in this encounter Care Teams Baseball Player Relationship Specialty Start Date End Date Ken Greer MD [address] [place] [address] PCP - General 07/07/23 Kiel Powers [facility] Nephrology 05/31/24 documented as of this encounter
--- OUTSIDE RECORDS SUMMARY | 2024-12-05 12:00 | XMS_ITS | Encounter Summary ---
Author Organization [facility] Address [address] [place] [address] Care Team Providers Care Regional Merchandising Manager Name Role Phone Ken Greer MD Primary Care Provider [phone] Kiel Powers Unavailable Unavailable Reason for Visit * Reason Comments Transplant Evaluation Encounter Details Date Type Department Care Team (Late st Contact Info) Description 07/20/2024 15:00 EDT Office Visit [facility] Transplant - [place] [address] [place] [address] [phone] Bryant Coffey MD 1 [facility], Level [address] [place] [address] Pre-transplant evaluation for kidney transplant (Primary Dx) Social History Tobacco Use Types Packs/Day Years Used Date Smoking Tobacco: Every Day Cigarettes 1 26.1 Started: 1998 Smokeless Tobacco: Never Alcohol Use Standard Drinks/Week Comments Yes 0 (1 standard drink = 0.6 oz pur e alcohol) Socially [facility] Utilities Answer Date Recorded In the past 12 months has [employer], gas, oil, or water company threatened [...] your living situation today? I have a [facility] place to live 05/30/2024 Think [...] In the past 12 months has e [employer], gas, oil, or water company threatened to [...] documented in this encounter Progress Notes * Bryant Coffey MD - 07/20/2024 1500 EDT Transplant Nephrology Pre-transplant Evaluation Consult Note Date: 07/20/2024 Patient: Gersonharish Kimaleks REASON FOR CONSULTATION REQUEST: Evaluation of candidacy for a kidney transplant HPI: Gerson Bruner is a 58 y.o. male with ESRD on HD comes today, accompanied by his spouse, for medical evaluation for potential kidney transplant. 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 He was recently admitted at [facility] with right heel infection. This was 3 mo after a left BKA on 02/21/24 and a right SFA/PT angioplast on 04/11/24. He was treated with broad abxs. He undew ent a right guilotine BKA performed without complicaions. Post op he was readmitted with AFIB. He has severe PVD with DARIA 1.58 bilaterally He also has h/o paroxysmal Afib and he is on apixaban, diltiazem and carvedilol RENAL HISTORY: Primary cause of kidney disease: diabetic kidney disease eGFR: Lab Results Component Value Date/Time CALCGFR 8 (L) 05/31/2024 11:33 Dialysis: on HD incenter Secondary cause of kidney disease: HTN Reason for wanting a transplant: improve quality of life History of sensitizing events: Previous blood transfusions: no Previous transplants: no Other known past medical history include: has a past medical history of Asthma, Diabetes mellitus ([facility]), Hyperlipidemia, Hypertension, Stage 3 chronic kidney disease ([facility]), and Unsteady gait when walking. SYSTEMIC ASSESSMENT Cardiac : 04/23/24 interpretation Summary Left ventricular systolic function is normal. The left ventricular ejection fraction is 61% by Patel's biplane. There are no segmental wall motion abnormalities. Left ventricular filling pressure is increased. Right ventricular systolic function is normal. No significant valvular disease. 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 He was recently admitted at [facility] with right heel infection. This was 3 moafter a left BKA on 02/21/24 and a right SFA/PT angioplast on 04/11/24. He was treated with broad abxs. He undewent a right guilotine BKA performed without complicaions. Post op he was readmitted with AFIB. He has severe PVD with DARIA 1.58 bilaterally and now with right BKA Hypertension: YES on carvedilol CVA/TIA: no Anticoagulation: yes apixaban for afib Past Surgical History: Past Surgical History: Procedure Laterality Date APPENDECTOMY BACK SURGERY BELOW KNEE AMPUTATION Left 02/21/2024 CHOLECYSTECTOMY DIALYSIS FISTULA CREATION Left SHOULDER SURGERY Immunization: Immunization History Administered Date(s) Administered Hepatitis B Vaccine Adult IM 08/09/2018, 03/14/2019, 04/03/2019, 05/01/2019, 09/04/2019, 11/06/2019, 12/04/2019, 01/01/2020, 05/06/2020 Hepatitis B Vaccine Dialysis/Immunosup 4-dose IM 12/08/2021, 01/05/2022, 02/02/2022, 04/06/2022 Influenza (whole) 08/01/2021, 07/28/2022 Influenza Vaccine Quad PF 0.5 ml IM (6 mos+) 07/30/2023 Pneumococcal Conjugate Vaccine 13-Valent (PCV13) (PREVNAR-13) 0.5 mL IM (6 wks+) 08/02/2019 Pneumococcal Conjugate Vaccine 20-Valent (PCV20) (PREVNAR-20) 0.5 mL IM (6 wks+) 11/30/2022 Pneumococcal Polysaccharide (PPSV23) Vaccine (PNEUMOVAX-23) =>2YO SQ/IM 04/15/2001, 09/07/2011 Td (Adult) 5 Lf Vaccine (TENIVAC) Preservative Free =>7yo IM 10/30/1996 Tdap Vaccine =>7YO IM 05/31/2016 Allergies: Allergies Allergen Reactions Gabapentin Swelling Other Reaction(s): ANKLE EDEMA Pregabalin Other reaction(s): Unsure Sertraline Other reaction(s): Unsure Clindamycin Hives and Swelling Medications: Current Outpatient Medications Medication Sig Dispense Refill acetaminophen (TYLENOL) 325 [...] on 07/05/2024) insulin pen needles 32G x 32 Brand: Colingo Ultra Fine Anny. ISS TID and levemir [...] hours as needed. No current facility-administered medications for this visit. Family History: Family History Problem Relation Age of Onset Hypertension Maternal Grandmother Hypertension Maternal Grandfather Glaucoma Neg Hx Cataract Neg Hx Macular Degeneration Neg Hx Retinal Detachment Neg Hx Social History: Psychosocial evaluation completed by the social media manager. Review of Systems: System Negative Positive Comments Constitutional On wheelchair Eyes negative ENT Cardiovascular Pulmonary no chest pain or dyspnea on exertion Gastrointestinal no perceived abdominal pain, change in bowel habits, or black or bloody stools Genitourinary no dysuria, trouble voiding, or hematuria Musculoskeletal Right BKA Integument/breast negative Neurological no TIA or stroke symptoms Psychiatric negative Endocrine negative Hematologic/Lymph negative Allergic/Immunologic A complete review of systems was performed. All pertinent positives and negatives are noted above. Physical Exam There were no vitals taken for this visit. General: alert and oriented X3, Dialysis access: CHEST: Clear vesicular breath sounds heard on both lung marti CVS: S1 S2 present, no S3 or S4. Regular rate and rhythm ABDOMEN: Soft, non-distended, non-tender. Extremities: Right BKA with stump wrapped PULSES: Femoral : Right 3/5, Left 1/5 esses, or fever associated with tooth ache. Lab Review No results for input(s): CREATININE, BUN, NA, K, CL, CO2 in the last 72 hours. No results for input(s): CA, PHOS in the last 72 hours. Recent Labs 07/19/24 0645 HGB 11.7* Recent Labs 07/19/24 0645 WBC 8.20 Incorrect component name entered: [id number] No results for input(s): MG in the last 72 hours. Incorrect component name entered: [id number] Assessment and Plan: Gerson Bruner is a 58 y.o. male with ESRD on HD due to DKD comes today, accompanied by his spouse,for medical evaluation for potential kidney transplant. Based on the clinical examination and review of medical records Gerson Bruner is a poor candidate for kidney transplantation. Due to severe peripheral vascular disease with s/p angioplasty and stent in the right SFA that willnot allow proper arterial anastomosis of the graft and significantly reduced left femoral blood flow that will not allow left femoral or iliac implantation, surgically he is not a good candidate for transplant as he was evaluated by our transplant surgery team. He will be declined I have spent over 80 minutes in consultation with Gerson Bruner of which over 70% was in direct counseling and education. Diagnosis: Pre-Transplant Evaluation for Kidney Transplantation Bryant Coffey M.D, F.A.C.P, Anibal Lightning Protection Installer Transplant Car Sander burn nurse, Auction Clerk of Transplant Programs [facility] Jas Rivers MD [place] [facility] [address], [address] [id number] [email or web address] documented in this encounter Plan of Treatment Upcoming Encounters Date Type Department Care Team (Late st Contact Info) Description 12/06/2024 6:45 EST Treatment [facility] [address] [place], [place] [id number] Carlota Jin MD [address] [place] [address], [facility] [address] [place] [address] 12/08/2024 6:45 EST Treatment [facility] [address] [place], [place] [id number] Carlota Jin MD [address] [place] [address], [facility] [address] [place] [phone] 12/11/2024 6:45 EST Treatment [facility] [address] [place] [address] Carlota Jin MD [facility], [facility] 2 [place] [phone] 12/13/2024 6:45 EST Treatment [facility] [place] [address] [place], [place] [id number] Carlota Jin MD 1 [facility], [facility] [address] [place] [phone] 12/15/2024 6:45 EST Treatment [facility] [place] [address] [place] [address] Carlota Jin MD 1 [facility], [facility] 2 [place] [phone] 12/18/2024 6:45 EST Treatment [facility] [place] [address] [place] [address] Carlota Jin MD 1 [facility], [facility] 2 [place] [phone] 12/20/2024 6:45 EST Treatment [facility] [place] [address] [place], [place] [id number] Carlota Jin MD 1 [facility], [facility] [address] [place] [phone] 12/22/2024 6:45 EST Treatment [facility] [place] [address] [place], [place] [id number] Carlota Jin MD 1 [facility], [facility] 2 [place] [phone] 12/25/2024 6:45 EST Treatment [facility] [place] [address] [place], [place] [id number] Carlota Jin MD 1 [facility], [facility] [address] [place] [phone] 12/27/2024 6:45 EST Treatment [facility] [place] [address] [place], [place] [id number] Carlota Jin MD 1 [facility], [facility] 2 [place] [phone] 12/29/2024 6:45 EST Treatment [facility] [address] [place], [place] [id number] Carlota Jin MD 1 [facility], [facility] [address] [place] [phone] 01/01/2025 6:45 EDT Treatment [facility] [place] [address] [place], [place] [id number] Carlota Jin MD 1 [facility], [facility] 2 [place] [phone] 01/03/2025 6:45 EDT Treatment [facility] [place] [address] [place], [place] [id number] Carlota Jin MD 1 [facility], [facility] 2 [place] [phone] 01/05/2025 6:45 EDT Treatment [facility] [address] [place], [place] [id number] Carlota Jin MD 1 [facility], [facility] 2 [place] [phone] 01/08/2025 6:45 EDT Treatment [facility] [place] [address] [place], [place] [id number] Carlota Jin MD 1 [facility], [facility] 2 [place] [phone] 01/10/2025 6:45 EDT Treatment [facility] [place] [address] [place], [place] [id number] Carlota Jin MD 1 [facility], [address] [phone] 01/12/2025 6:45 EDT Treatment [facility] [place] [address] [place], [place] [id number] Carlota Jin MD 1 [facility], [address] [phone] 01/15/2025 6:45 EDT Treatment [facility] [place] [address] [place], [place] [id number] Carlota Jin MD 1 [facility], [facility] [address] [place] [phone] 01/17/2025 6:45 EDT Treatment [facility] [place] [address] [place], [place] [id number] Carlota Jin MD 1 [facility], [facility] 2 [place] [phone] 01/19/2025 6:45 EDT Treatment [facility] [place] [address] [place], [place] [id number] Carlota Jin MD 1 [facility], [facility] 2 [place] [phone] 01/22/2025 6:45 EDT Treatment [facility] [place] [address] [place], [place] [phone] Carlota Jin MD 1 [facility], [facility] 2 [place] [phone] 01/24/2025 6:45 EDT Treatment [facility] [place] [address] [place], [place] [address] Carlota Jin MD 1 [facility], [address] [phone] 01/26/2025 6:45 EDT Treatment [facility] [place] [address] [place], [place] [address] Carlota Jin MD 1 [facility], [facility] 2 [place] [phone] 01/29/2025 6:45 EDT Treatment [facility] [place] [address] [place], [place] [id number] Carlota Jin MD 1 [facility], [facility] 2 [place] [phone] 01/31/2025 6:45 EDT Treatment [facility] [place] [address] [place], [place] [address] Carlota Jin MD 1 [facility], [facility] 2 [place] [phone] 02/02/2025 6:45 EDT Treatment [facility] [place] [address] [place] [address] Carlota Jin MD 1 [facility], [address] [phone] 02/05/2025 6:45 EDT Treatment [facility] [place] [address] [place], [place] [address] Carlota Jin MD 1 [facility], [address] [phone] 02/07/2025 6:45 EDT Treatment [facility] [place] [address] [place] [address] Carlota Jin MD 1 [facility], [address] [phone] 02/09/2025 6:45 EDT Treatment [facility] [place] [address] [place], [place] [id number] Carlota Jin MD [address] [phone] 02/12/2025 6:45 EDT Treatment [facility] [place] [address] [place], [place] [id number] Carlota Jin MD 1 [facility], [facility] 2 [place] [phone] 02/14/2025 6:45 EDT Treatment [facility] [place] [address] [place], [place] [id number] Carlota Jin MD [address] [place] [phone] 02/16/2025 6:45 EDT Treatment [facility] [place] [address] [place], [place] [phone] Carlota Jin MD [address] [place] [phone] 02/19/2025 6:45 EDT Treatment [facility] [place] [address] [place] [address] Carlota Jin MD [address] [place] [phone] 02/21/2025 6:45 EDT Treatment [facility] [place] [address] [place], [place] [id number] Carlota Jin MD [address] [place] [phone] documented as of this encounter Visit Diagnoses Diagnosis Pre-transplant evaluation for kidney transplant- Primary Other specified pre-operative examination documented in this encounter Care Teams Regional Merchandising Manager Relationship Specialty Start Date End Date Ken Greer [place] [address] PCP - General 07/07/23 Kiel Powers Studio Owner Nephrology 05/31/24 documented as of this encounter
--- OUTSIDE RECORDS SUMMARY | 2024-12-05 12:01 | XMS_ITS | Encounter Summary ---
Author Organization [facility] Address [address] [place] [address] Care Team Providers Care Dinkey Operator Slag Name Role Phone Ken Greer MD Primary Care Provider [phone] Kiel Powers Unavailable Unavailable Encounter Details Date Type Department Care Team (Late st Contact Info) Description 06/30/2024 Documentation Visit [facility] [address] [place], [place] [id number] Melissa Crespo, RN Social History Tobacco Use Types Packs/Day Years Used Date Smoking Tobacco: Every Day Cigarettes 1 26.1 Started: 1998 Smokeless Tobacco: Never Alcohol Use Standard Drinks/Week Comments Yes 0 (1 standard drink = 0.6 oz pur e alcohol) Socially [facility] Utilities Answer Date Recorded In [...] living situation today? I have a [facility] place to live 05/30/2024 Think about [...] Contact Info) Description 12/06/2024 6:45 EST Treatment [facility] [place] [address] [place], [place] [phone] Carlota Jin MD 1 [facility], [address] [place] [phone] 12/08/2024 6:45 EST Treatment [facility] [place] [address] [place], [place] [id number] Carlota Jin MD 1 [facility], [address] [place] [phone] 12/11/2024 6:45 EST Treatment [facility] [place] [address] [place], [place] [id number] Carlota Jin MD 1 [facility] 2 [place] [phone] 12/13/2024 6:45 EST Treatment [facility] [place] [address] [place], [place] [phone] Carlota Jin MD 1 [facility], [facility] 2 [place] [phone] 12/15/2024 6:45 EST Treatment [facility] [place] [address] [place] [address] Carlota Jin MD 1 [facility], [facility] 2 [place] [phone] 12/18/2024 6:45 EST Treatment [facility] [address] [place], [place] [phone] Carlota Jin MD 1 [facility], [facility] 2 [place] [phone] 12/20/2024 6:45 EST Treatment [facility] [place] [address] [place], [place] [id number] Carlota Jin MD 1 [facility], [facility] 2 [place] [phone] 12/22/2024 6:45 EST Treatment [facility] [place] [address] [place], [place] [id number] Carlota Jin MD 1 [facility], [facility] 2 [place] [phone] 12/25/2024 6:45 EST Treatment [facility] [place] [address] [place], [place] [id number] Carlota Jin MD 1 [facility], [facility] 2 [place] [phone] 12/27/2024 6:45 EST Treatment [facility] [place] [address] [place], [place] [id number] Carlota Jin MD 1 [facility], [facility] [address] [place] [phone] 12/29/2024 6:45 EST Treatment [facility] [place] [address] [place], [place] [phone] Carlota Jin MD 1 [facility], [facility] 2 [place] [phone] 01/01/2025 6:45 EDT Treatment [facility] [place] [address] [place], [place] [id number] Carlota Jin MD 1 [facility], [facility] 2 [place] [phone] 01/03/2025 6:45 EDT Treatment [facility] [place] [address] [place], [place] [phone] Carlota Jin MD 1 [facility], [facility] 2 [place] [phone] 01/05/2025 6:45 EDT Treatment [facility] [place] [address] [place], [place] [phone] Carlota Jin MD 1 [facility], [facility] 2 [place] [phone] 01/08/2025 6:45 EDT Treatment [facility] [place] [address] [place], [place] [phone] Carlota Jin MD 1 [facility], [facility] 2 [place] [phone] 01/10/2025 6:45 EDT Treatment [facility] [place] [address] [place], [place] [phone] Carlota Jin MD 1 [facility], [facility] 2 [place] [phone] 01/12/2025 6:45 EDT [facility] [address] [place], [place] [id number] Carlota Jin MD 1 [facility], [facility] 2 [place] [phone] 01/15/2025 6:45 EDT Treatment [facility] [place] [address] [place], [place] [phone] Carlota Jin MD 1 [facility], [facility] [address] [place] [phone] 01/17/2025 6:45 EDT Treatment [facility] [place] [address] [place], [place] [phone] Carlota Jin MD 1 [facility], [facility] [address] [place] [phone] 01/19/2025 6:45 EDT Treatment [facility] [place] [address] [place], [place] [id number] Carlota Jin MD 1 [facility], [facility] 2 [place] [phone] 01/22/2025 6:45 EDT Treatment [facility] [place] [address] [place], [place] [id number] Carlota Jin MD 1 [facility], [facility] 2 [place] [phone] 01/24/2025 6:45 EDT Treatment [facility] [place] [address] [place], [place] [address] Carlota Jin MD 1 [facility], [facility] [address] [place] [phone] 01/26/2025 6:45 EDT Treatment [facility] [place] [address] [place], [place] [phone] Carlota Jin MD 1 [facility], [facility] 2 [place] [phone] 01/29/2025 6:45 EDT Treatment [facility] [place] [address] [place], [place] [phone] Carloat Jin MD 1 [facility], [facility] 2 [place] [phone] 01/31/2025 6:45 EDT Treatment [facility] [place] [address] [place] [address] Carlota Jin MD 1 [facility], [address] [phone] 02/02/2025 6:45 EDT Treatment [facility] [place] [address] [place], [place] [phone] Carlota Jin MD 1 [facility], [address] [phone] 02/05/2025 6:45 EDT Treatment [facility] [place] [address] [place], [place] [phone] Carlota Jin MD 1 [facility], [address] [phone] 02/07/2025 6:45 EDT Treatment [facility] [place] [address] [place], [place] [phone] Carlota Jin MD 1 [facility], [facility] 2 [place] [phone] 02/09/2025 6:45 EDT Treatment [facility] [place] [address] [place], [place] [phone] Carolta Jin MD 1 [facility], [facility] 2 [place] [phone] 02/12/2025 6:45 EDT Treatment [facility] [place] [address] [place], [place] [phone] Carlota Jin MD 1 [facility], [address] [phone] 02/14/2025 6:45 EDT Treatment [facility] [place] [address] [place], [place] [phone] Carlota Jin MD [address] [place] [phone] 02/16/2025 6:45 EDT Treatment [facility] [place] [address] [place], [place] [address] [phone] Carlota Jin MD [address] [place] [phone] 02/19/2025 6:45 EDT Treatment [facility] [place] [address] [place], [place] [phone] Carlota Jin MD [address] [place] [phone] 02/21/2025 6:45 EDT Treatment [facility] [place] [address] [place], [place] [phone] Carlota Jin MD [address] [phone] documented as of this encounter Visit Diagnoses Not on filedocumented in this encounter Care Teams Dinkey Operator Slag Relationship Specialty Start Date End Date Ken Greer MD [address] [place] [address] PCP - General 07/07/23 Kiel Powers Marketing [employer] Leader Nephrology 05/31/24 documented as of this encounter
--- OUTSIDE RECORDS SUMMARY | 2024-12-05 12:01 | XMS_ITS | Encounter Summary ---
Author Organization [facility] Address [address] [place] [address] Care Team Providers Care Dowel Pin Worker Name Role Phone Ken Greer MD Primary Care Provider Kiel Powers Unavailable Unavailable Reason for Visit * Episode Based Medications (Routine) - New Request Specialty Diagnoses / Procedures Referred By Nader gardiner Referred To Contact Diagnoses ESRD (end stage renal disease) ([facility]) Carlota Jin MD [address] [place] [address] [address] [place] [address] Phone: tel: fax: [facility] [place] [address] [place] [address] Phone: tel: fax: Referral ID Status Reason Start Date Expiration Date V isits Requested Visits Authorized [id number] New Request 03/17/2024 1 1 Encounter Details Date Type Department Care Team (Latest Contact Info) Description 06/19/2024 6:45 EDT Treatment [facility] [address] [place], [place] [phone] Carlota Jin MD [address] [place] [address], [facility] [address] [place] [address] ESRD (end stage renal disease) ([facility]) (Primary Dx); Anemia of chronic renal failure, unspecified CKD stage; Hypoalbuminemia; Secondary hyperparathyroidism ([facility]) Social History Tobacco Use Types Packs/Day Years Used Date Smoking Tobacco: Every Day Cigarettes 1 26.1 Started: 1998 Smokeless Tobacco: Never Alcohol Use Standard Drinks/Week Comments Yes 0 (1 standard drink = 0.6 oz pur e alcohol) Socially [facility] Utilities Answer Date Recorded In the past [...] In the past 12 months has th [employer], gas, oil, or water [employer] threatened to shut off services in your [...] - Temperature - - Respiratory Rate 16 06/19/2024 0618 EDT Oxygen Saturation - - Inhaled Oxygen Concentration - - Weight 81 kg (178 lb 9.2 oz) 06/19/2024 0621 EDT Height - - Body Mass Index 25.62 12/20/2023 2202 EST documented in this encounter [...] Flowsheet Note - Marcela Cox RN - 06/19/2024 1335 EDT 06/19/24 1042 Post-Hemodialysis Assessment Total Blood Processed (L) 89.89 Liters On Line Clearance: spKt/V 1.52 spKt/V Dialyzer Clearance Lightly streaked Treatment UFR (ml:kg:hr) 14.52 ml:kg:hr Final Critline Profile (%/hr) 0.12 Final Profile Profile A Critline refill Not done Fluid Removed (L) 4.5 L Post-Dialysis Scale Weight 95.5 kg (210 lb 8.6 oz) Wheelchair Weight 19 kg (41 lb 14.2 oz) Prosthesis Weight 0 kg (0 lb) Post-Treatment Weight (kg) 76.5 Treatment Weight Change (kg) 4.5 kg Day Target Weight (kg) 77 Post Sitting/Lying BP 132/84 Post Sitting/Lying pulse 102 Temp 35.7 ??C (96.3 ??F) Temp src Temporal Minutes Short -243 Post access assessment AVF/AFG Hemostasis achieved Yes Note Arterial: 15 minute hold with blue clamp due to rebleed. Venous: 10 minute hold with blue clamp Orientation Alert and Oriented x3 Yes Time Yes Place Yes Person Yes Cooperative Yes Disoriented No Discharge Ambulation Methods Departs via w/c Wrap up items Patient Response to Treatment Tolerated tx well. Removed 4.5L UF goal without difficulty. Comments No issues during tx, no concerns voiced post tx. * Dialysis Comprehensive - Carlota Jin MD - 06/19/2024 0645 EDT Images from the original note were not included. Dialysis Provider's Monthly Comprehensive Assessment Dialysis Unit: [facility] ESRD Etiology: Type 2 diabetes mellitus with diabetic chronic kidney disease (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) ESRD (end stage renal disease) ([facility]) Primary hypertension [I10] Hearing loss Herniation of lumbar intervertebral disc with radiculopathy Hyperlipidemia Proteinuria Right sided numbness Secondary hyperparathyroidism ([facility]) TIA (transient ischemic attack) Type II or unspecified type diabetes mellitus with neurological manifestations, uncontrolled(250.62) Encounter for immunization Hypoalbuminemia Anemia of chronic renal failure Abnormal albumin Cellulitis and abscess of foot, except toes Encounter for therapeutic drug monitoring Diabetic foot infection ([facility]) [E11.628, L08.9] COVID Type 2 diabetes mellitus with chronic kidney disease on chronic dialysis, with long-term current use of insulin ([facility]) [E11.22, N18.6, Z99.2, Z79.4] Anemia of chronic renal failure, stage 5 ([facility]) [N18.5, D63.1] ESRD on hemodialysis ([facility]) Atrial fibrillation and flutter ([facility]) Anemia in chronic kidney disease Anxiety and depression GERD (gastroesophageal reflux disease) Nicotine dependence, cigarettes, uncomplicated Non-healing open wound of heel Olecranon bursitis, right elbow Osteoarthrosis Peripheral neuropathy Retinopathy Sciatica Smoker Type 2 diabetes mellitus with diabetic neuropathy, unspecified ([facility]) Secondary hyperparathyroidism of renal origin ([facility]) Diabetes mellitus ([facility]) Treatment Modality: Patient received information [...] No Listing On-Hold? No No Transplant Center [facility] Comments Patient does not meet transplant criteria due to daily smoking cigarettes pt referred to transplant @ [facility] Current Dialysis Prescription: Hemodialysis Therapy Plan [...] with Nursing: Yes Average Interdialytic Fluid Gains: 06/14/2024 10:40 06/16/2024 6:20 06/16/2024 6:26 06/16/2024 10:38 06/19/2024 6:18 06/19/2024 6:21 06/19/2024 10:42 InterDialytic +/- Gain/Loss 3.6 3.6 5.6 5.6 Wt (pre) 78.9 78.9 81 81 Wt (post) 75.3 75.4 76.5 Treatment UFR (ml:kg:hr) 12.79 ml:kg:hr 11.56 ml:kg:hr 14.52 ml:kg:hr BP (post) 175/86 175/86 151/75 151/75 Pulse(post) 77 77 74 74 Resp (/min) 16 16 Volume and blood [...] dyspnea Principal/Final Diagnosis: Acute hypoxic respiratory failure ([facility]) Additional Problems Managed in the Hospital: Active Hospital Problems Diagnosis Date Noted *Acute hypoxic respiratory failure ([facility]) 05/30/2024 Diabetes mellitus ([facility]) 05/31/2024 Hypoglycemia 05/31/2024 Atrial fibrillation and flutter ([facility]) 12/21/2023 Resolved Hospital Problems No resolved problems to display. Transition of care: [facility] Transition of Care report automatically routed to [...] who presented as a direct admit from [facility] ED for dyspnea shortly after hemodialysis [...] Pre Transplant Evaluation with Juan Cleveland MD [facility] - [facility] [place] (--) 1 [facility] [id number] Jul 20, 2024 15:00 Pre Transplant Evaluation with TRANSPLANT, NEPHROLOGY [facility] Transplant - [place] (--) 1 [facility] [address] CHRIST RANDOLPH DO Internal Medicine PGY-1 Epic secure chat or [...] Arteriovenous Access 02/13/19 (Active) AV Fistula Present 06/19/24 0642 Site Assessment Clean;Dry;Intact;Bruit heard;Thrill felt 06/19/24 0642 Current State Active 08/26/24 0642 Status Accessed 06/19/2442 Is Maturing N 06/19/24641 Local Anesthetic None 06/19/24641 Site Prep Chlorhexidine 06/19/24641 Venous Needle Size 15 G 06/19/24641 Arterial/Generic Needle Size 15 G 06/19/24641 Accessed by: Rhea 06/19/24641 Access Attempts 2 06/19/24641 Dressing Status/Care Clean/Dry/Intact 06/16/24644 Dressing Intervention Other (Comment) 05/30/242054 Patient has [...] Tablets by mouth every 4 hours as needed., Disp: , Rfl: insulin aspart U-100 (NOVOLOG [...] insulin pen needles 32G x 5/32, Brand: [employer] Fine Anny. ISS TID and levemir once daily, Disp: 100 Each, Rfl: 11 pantoprazole (PROTONIX) 40 mg tablet, Take 1 Tablet by mouth daily., Disp: , Rfl: polyethylene glycol 3350 (MIRALAX) 17 gram packet, Take 17 g by mouth 2 times daily., Disp: , Rfl: pregabalin (LYRICA) 100 mg capsule, Take 1 Capsule by mouth 2 times daily. After dialysis, Disp: , Rfl: senna-docusate (SENNA PLUS) 8.6-50 mg per tablet, Take 1 Tablet by mouth daily., Disp: , Rfl: sevelamer carbonate (RENVELA) 800 mg tablet, Take 2 Tablets by mouth 3 times daily with meals., Disp: 540 Tablet, Rfl: 3 tiZANidine (ZANAFLEX) 4 mg tablet, Take 1 Tablet by mouth every 8 hours as needed., Disp: , Rfl: Adjustment made to home medication: No Dialysis Medication Review Dialysis Plan Order Summary All Current Orders Interval Duration Due Hemodialysis Therapy Plan Dialysis Treatment In-Center Hemodialysis 3 times a week Week of 06/18/2024 Routine, ONE TIME Starting when released Prescribed [...] - UF Profile: None Dialysis Last released: Wed06/19/2024 Oxygen Therapy (Age 2 yrs. to Adult) [...] released Until Discontinued, Pain, Dialysis Last released: Wed06/16/2024 diphenhydrAMINE (BENADRYL) capsule 25 mg PRN PRN 25 mg, oral, EVERY 6 HOURS PRN Starting when released Until Discontinued, Itching, Other, transfusion reaction, Dialysis Last released: Never heparin injection 7,000 Units Every visit Every visit 7,000 Units, intravenous, ONCE IN DIALYSIS Starting when released, Dialysis Now x1 bolus 3400 units to be given at the beginning of dialysis 900 units/hour to be given over the course of dialysis (7000 units total). Stop 1 hour prior to endof treatment. To be administered per Policy [id number]. Last released: Wed06/19/2024 sodium chloride 0.9 % BOLUS 100 mL PRN PRN 100 mL, intravenous, PRN Starting when released Until Discontinued, Other, hypotension or cramping,Dialysis Last released: Never Dialysis Weekly Labs Complete Blood Count Weekly: Wed06/21/2024 Routine, ONE TIME Starting when released, Blood, Venous, Blood Dialysis Last released: Wed06/14/2024 Dialysis Monthly Labs Dialysis Iron (Includes Iron, IBC, and Ferritin) - Nephrology Use Only On the Wed of every 1 month Wed06/26/2024 Routine, ONE TIME Starting when released, Blood, Venous, Blood Dialysis Last released: Wed06/02/2024 Dialysis Routine- Dialysis Use Only On the Wed of every 1 month Wed06/26/2024 Routine, ONE TIME Starting when released, Blood, Blood, Venous Dialysis Last released: Wed06/02/2024 Postdialysis BUN with URR Calculation On the Wed of every 1 month Wed06/26/2024 Routine, ONE TIME Starting when released, Blood, Blood, Venous Dialysis Last released: Wed06/02/2024 Dialysis Quarterly Labs PTH Intact On the [...] results from tests performed at [facility] and does not apply for Miscellaneous Test Order): Immediate Last released: Never HEMODIALYSIS ANEMIA MEDS Medications epoetin ken (EPOGEN) 20,000 unit/2 mL injection 12,000 Units 3 times a week Week of 06/18/2024 12,000 Units, intravenous, ONCE IN DIALYSIS Starting when released, Dialysis Last released: Wed06/19/2024 HEMODIALYSIS NUTRITIONAL SUPPLEMENTS Nutritional Supplements LiquaCel liquid protein liquid 30 mL Every visit Every visit 30 mL, oral, ONCE IN DIALYSIS Starting when released Patient's flavor preference: either Last released: Wed06/19/2024 HEMODIALYSIS CKD MBD MEDS Medications calcium carbonate (TUMS) tablet 500 mg (200 mg elemental calcium) 2 Tablet Every visit Every visit 2 Tablet, oral, ONCE IN DIALYSIS Starting when released, Dialysis Last released: Wed06/19/2024 Adjustment made to dialysis medication: No Laboratory Results Dialysis Adequacy: spKt/V: 1.48 (Calculated from:; BUN Pre-Dialysis: 40 mg/dL at 06/02/2024 11:01; BUN Post-Dialysis: 12mg/dL at 06/02/2024 11:01; Pre-Treatment Weight (kg): 79.3 at 06/02/2024 6:26; Post-Treatment Weight (kg): 75.3 at 06/02/2024 10:45; Duration of Treatment (minutes): 244 minutes at 06/02/2024 10:45) Plan: Continue current dialysis prescription Anemia Management: Lab Results Component Value Date WBC 9.89 06/14/2024 HGB 11.1 (L) 06/14/2024 HGB 10.0 (L) 06/07/2024 HGB 10.0 (L) 06/02/2024 PLT 247 06/14/2024 FOLATE >24.0 10/27/2023 [id number] 607 10/27/2023 FERRITIN 275 06/02/2024 Current GEORGE/Dose: HEMODIALYSIS ANEMIA MEDS epoetin ken (EPOGEN) 20,000 unit/2 mL injection 12,000 Units 12,000 Units, intravenous, 3 times a week, ONCE [...] Management: Lab Results Component Value Date LABALBU 2.9 (L) 06/02/2024 ALKPHOS 118 06/02/2024 PHOS 6.5 (H) 06/02/2024 CALCIUM 8.3 (L) 06/02/2024 CALCCA 9.2 06/02/2024 PTH 250 (H) 05/01/2024 Vitamin D: cholecalciferol (Vitamin D3) - 25 mcg (1,000 unit) sevelamer carbonate - 800 mg This patient does not have an active medication from one of the medication groupers. Plan: Managed per protocol Potassium Management: Lab Results Component Value Date K 5.1 (H) 06/02/2024 Prescribed Potassium Concentrate: HEMODIALYSIS Ordered at: 06/19/24 0618 Dialysate concentrate: Potassium 2 mEq/L Calcium 2.5 mEq/L 06/19/2024 6:18 Last Dialysis Prescription released on: Selected bath: Potassium 2 mEq/L Calcium 2.5 mEq/L sevelamer carbonate - 800 mg Plan: Managed per protocol Nutrition: Lab Results Component Value Date LABALBU 2.9 (L) 06/02/2024 TP 6.4 12/19/2023 NA 140 06/02/2024 SERGLU 265 (H) 05/31/2024 HGBA1C 11.6 (H) 11/07/2023 Protein Supplements: This patient does not have an active medication from one of the medication groupers. Plan: Managed per protocol Comments: He does not think he is taking Lokelma. I am not sure if it is still not covered by insurance. We discussed fluid gains and importance of trying to limit fluid intake. No other acute issues at this time. Carlota Jin MD documented in this encounter Plan of Treatment Upcoming Encounters Date Type Department Care Team (Late st Contact Info) Description 12/06/2024 6:45 EST Treatment [facility] [address] [place], [place] [phone] Carlota Jin MD 1 [facility], [facility] [address] [place] [address] 12/08/2024 6:45 EST Treatment [facility] [address] [place], [place] [phone] Carlota Jin MD 1 [facility], [facility] [address] [place] [phone] 12/11/2024 6:45 EST Treatment [facility] [address] [place], [place] [phone] Carlota Jni MD [address] [place] [address], [facility] [address] [place] [address] 12/13/2024 6:45 EST Treatment [facility] [place] [address] [place], [place] [phone] Carlota Jin MD 1 [facility], [facility] [address] [place] [phone] 12/15/2024 6:45 EST Treatment [facility] [place] [address] [place], [place] [phone] Carlota Jin MD 1 [facility], [facility] [address] [place] [phone] 12/18/2024 6:45 EST Treatment [facility] [place] [address] [place], [place] [phone] Carlota Jin MD 1 [facility], [facility] [address] [place] [phone] 12/20/2024 6:45 EST Treatment [facility] [place] [address] [place], [place] [phone] Carlota Jin MD 1 [facility], [facility] [address] [place] [phone] 12/22/2024 6:45 EST Treatment [facility] [place] [address] [place], [place] [phone] Carlota Jin MD 1 [facility], [facility] [address] [place] [phone] 12/25/2024 6:45 EST Treatment [facility] [place] [address] [place], [place] [phone] Carlota Jin MD 1 [facility] [address] [place] [phone] 12/27/2024 6:45 EST Treatment [facility] [place] [address] [place], [place] [address] Carlota Jin MD 1 [facility], [facility] [address] [place] [phone] 12/29/2024 6:45 EST Treatment [facility] [address] [place], [place] [phone] Carlota Jin MD 1 [facility], [facility] [address] [place] [phone] 01/01/2025 6:45 EDT Treatment [facility] [address] [place], [place] [phone] Carlota Jin MD 1 [facility], [facility] [address] [place] [phone] 01/03/2025 6:45 EDT Treatment [facility] [address] [place], [place] [phone] Carlota Jin MD 1 [facility], [facility] [address] [place] [phone] 01/05/2025 6:45 EDT Treatment [facility] [address] [place], [place] [phone] Carlota Jin MD 1 [facility], [facility] [address] [place] [phone] 01/08/2025 6:45 EDT Treatment [facility] [place] [address] [place], [place] [phone] Carlota Jin MD 1 [facility], [facility] [address] [place] [phone] 01/10/2025 6:45 EDT Treatment [facility] [place] [address] [place], [place] [phone] Carlota Jin MD 1 [facility], [facility] [address] [place] [phone] 01/12/2025 6:45 EDT Treatment [facility] [place] [address] [place], [place] [phone] Calrota Jin MD [address] [place] [address], [facility] [address] [place] [phone] 01/15/2025 6:45 EDT Treatment [facility] [place] [address] [place], [place] [phone] Carlota Jin MD 1 [facility], [facility] [address] [place] [phone] 01/17/2025 6:45 EDT Treatment [facility] [place] [address] [place], [place] [phone] Carlota Jin MD 1 [facility], [facility] [address] [place] [phone] 01/19/2025 6:45 EDT Treatment [facility] [place] [address] [place], [place] [phone] Carlota Jin MD 1 [facility], [facility] [address] [place] [phone] 01/22/2025 6:45 EDT Treatment [facility] [place] [address] [place], [place] [phone] Carlota Jin MD 1 [facility], [facility] [address] [place] [phone] 01/24/2025 6:45 EDT Treatment [facility] [place] [address] [place] [address] Carlota Jin MD 1 [facility], [address] [phone] 01/26/2025 6:45 EDT Treatment [facility] [place] [address] [place], [place] [phone] Carlota Jin MD 1 [facility], [address] [phone] 01/29/2025 6:45 EDT Treatment [facility] [place] [address] [place] [address] Carlota Jin MD 1 [facility], [facility] [address] [place] [phone] 01/31/2025 6:45 EDT Treatment [facility] [place] [address] [place], [place] [phone] Carlota Jin MD 1 [facility], [facility] [address] [place] [phone] 02/02/2025 6:45 EDT Treatment [facility] [place] [address] [place], [place] [address] Carlota Jin MD 1 [facility], [facility] [address] [place] [phone] 02/05/2025 6:45 EDT Treatment [facility] [place] [address] [place], [place] [address] Carlota Jin MD 1 [facility], [facility] [address] [place] [phone] 02/07/2025 6:45 EDT Treatment [facility] [place] [address] [place] [address] Carlota Jin MD 1 [facility], [address] [phone] 02/09/2025 6:45 EDT Treatment [facility] [place] [address] [place], [place] [address] Carlota Jin MD 1 [facility], [facility] [address] [place] [phone] 02/12/2025 6:45 EDT Treatment [facility] [place] [address] [place], [place] [phone] Carlota Jin MD 1 [facility], [facility] [address] [place] [phone] 02/14/2025 6:45 EDT Treatment [facility] [place] [address] [place], [place] [phone] Carlota Jin MD 1 [facility], [address] [phone] 02/16/2025 6:45 EDT Treatment [facility] [place] [address] [place], [place] [phone] Carlota Jin MD [address] [phone] 02/19/2025 6:45 EDT Treatment [facility] [place] [address] [place], [place] [phone] Carlota Jin MD [address] [phone] 02/21/2025 6:45 EDT Treatment [facility] [place] [address] [place], [place] [phone] Carlota Jin MD [address] [phone] documented as of this encounter Procedures Procedure Name Priority Date/Time Associated Diagnosis Comments HEMODIALYSIS Routine 06/19/2024 6:18 EDT ESRD (end stage renal disease) ([facility]) documented in this encounter Visit Diagnoses Diagnosis ESRD (end stage renal disease) ([facility])- Primary End stage renal disease Anemia of chronic renal failure, unspecified CKD stage Hypoalbuminemia Other disorders of plasma protein metabolism Secondary hyperparathyroidism ([facility]) Secondary hyperparathyroidism (of renal origin) documented in this encounter Administered Medications Inactive Administered Medications - up to 3 most recent administrations Medication Order MAR Action Action Date Dose Rate Site calcium carbonate (TUMS) tablet 500 mg (200 mg elemental calcium) 2 Tablet 2 Tablet, oral, ONCE IN DIALYSIS, 1 dose, On Wed06/19/24 at 0645, Routine, DialysisIndications:ESRD (end stage renal disease) ([facility]),Secondary hyperparathyroidism ([facility]) Given 06/19/2024 6:40 EDT 2 Tablets epoetin ken (EPOGEN) 20,000 unit/2 mL injection 12,000 Units 12,000 Units, intravenous, ONCE IN DIALYSIS, 1 dose, On Wed06/19/24 at 0645, Routine, DialysisIndications:ESRD (end stage renal disease) ([facility]),Anemia of chronic renal failure, unspecified CKD stage Given 06/19/2024 6:45 EDT 12,000 Units heparin injection 7,000 Units 7,000 Units, intravenous, ONCE IN DIALYSIS, 1 dose, On Wed06/19/24 at 0645, Routine, Dialysis, Now x1 bolus 3400 units to be given at the beginning of dialysis 900 units/hour to be given over the course of dialysis (7000 units total). Stop 1 hour prior to end of treatment. To be administered per Policy [id number].Indications:ESRD (end stage renal disease) ([facility]) Given 06/19/2024 6:45 EDT 7,000 Units LiquaCel liquid protein liquid 30 mL 30 mL, oral, ONCE IN DIALYSIS, 1 dose, On Wed06/19/24 at 0645, Patient's flavor preference: either, RoutineIndications:ESRD (end stage renal disease) ([facility]),Hypoalbuminemia Given 06/19/2024 6:40 EDT 30 mL documented in this encounter Discontinued Medications Medication Sig Discontinue Reason Start Date End lisinopriL (PRINIVIL) 10 mg tablet Take 1 Tablet by mouth daily. Therapy completed 06/19/2024 hydrOXYzine (ATARAX) 25 mg tablet Take 1 Tablet by mouth daily as needed for Anxiety. Therapy completed 06/19/2024 famotidine (PEPCID) 40 mg tablet Take 1 Tablet by mouth daily. Therapy completed 06/19/2024 multivitamin (NEPHROVITE) 0.8 mg tablet Take 1 Tablet by mouth at bedtime. Patient Stopped Taking 06/19/2024 nicotine (NICODERM CQ) 21 mg/[address] 1 Patch onto the skin daily. Patient Stopped Taking 06/19/2024 oxyCODONE (ROXICODONE) 5 mg immediate release tablet Take 1 Tablet by mouth every 6 hours as needed for Pain. Therapy completed 01/14/2024 06/19/2024 sildenafiL (REVATIO) 20 mg tablet Take 1 Tablet by mouth if needed. Patient Stopped Taking 06/19/2024 sodium zirconium cyclosilicate (LOKELMA) 10 gram powder in packet Take 10 g by mouth daily. Patient Stopped Taking 05/22/2024 06/19/2024 fluticasone propionate (FLOVENT) 110 mcg/actuation inhaler Inhale 1 Puff as directed 2 times daily. Patient Stopped Taking 06/19/2024 documented as of this encounter Orders Dialysis Count Last Ordered Date First Orde red Date HEMODIALYSIS 1 06/19/2024 documented in this encounter Care Teams Dowel Pin Worker Relationship Specialty Start Date End Date Ken Greer MD [address] [place] [address] PCP - General 07/07/23 Kiel Powers Artists' Booking Representative Nephrology 05/31/24 documented as of this encounter
--- OUTSIDE RECORDS SUMMARY | 2024-12-05 12:01 | XMS_ITS | Encounter Summary ---
Author Organization [facility] Address [address] [place] [address] Care Team Providers Care Content Development Specialist Name Role Phone Ken Greer MD Primary Care Provider [phone] Kiel Powers Unavailable Unavailable Encounter Details Date Type Department Care Team (Late st Contact Info) Description 07/03/2024 Documentation Visit [facility] D[facility] - [facility] Doctor's Common [address] [place] [address] Shelley Eden, RD [address] [place] [address] Social History Tobacco Use Types Packs/Day Years Used Date Smoking Tobacco: Every Day Cigarettes 1 26.1 Started: 1998 Smokeless Tobacco: Never Alcohol Use Standard Drinks/Week Comments Yes 0 (1 standard drink = 0.6 oz pur e alcohol) Socially [facility] Utilities Answer Date Recorded In the past 12 months has e [employer], gas, oil, or water [employer] threatened to shut off services in your [...] your living situation today? [facility] 05/30/2024 Think about [...] th e electric, gas, oil, or water [employer] threatened to shut off services in your [...] Info) Description 12/06/2024 6:45 EST Treatment [facility] D[facility]ysi - [place] [address] [place] [address] Carlota Jin MD 1 [facility], Level [address] [place] [phone] 12/08/2024 6:45 EST Treatment [facility] - [place] [address] [place] [address] Carlota Jin MD 1 [facility], [facility] [address] [place] [phone] 12/11/2024 6:45 EST Treatment [facility] - [place] [address] [place], [place] [id number] Carlota Jin MD 1 [facility], [facility] [address] [place] [phone] 12/13/2024 6:45 EST Treatment [facility] - [place] [address] [place], [place] [id number] Carlota Jin MD 1 [facility], [facility] [address] [place] [phone] 12/15/2024 6:45 EST Treatment [facility] - [place] [address] [place], [place] [id number] Carlota Jin MD 1 [facility], [facility] [address] [place] [phone] 12/18/2024 6:45 EST Treatment [facility] - [place] [address] [place], [place] [phone] Carlota Jin MD 1 [facility], [facility] [address] [place] [phone] 12/20/2024 6:45 EST Treatment [facility] - [place] [address] [place], [place] [phone] Carlota Jin MD 1 [facility], [facility] [address] [place] [phone] 12/22/2024 6:45 EST Treatment [facility] - [place] [address] [place], [place] [address] Carlota Jin MD 1 [facility], [facility] [address] [place] [phone] 12/25/2024 6:45 EST Treatment [facility] - [place] [address] [place] [address] Carlota Jin MD 1 [facility], [facility] [address] [place] [phone] 12/27/2024 6:45 EST Treatment [facility] - [place] [address] [place], [place] [address] [phone] Carlota Jin MD 1 [facility], [facility] [address] [place] [phone] 12/29/2024 6:45 EST Treatment [facility] - [place] [address] [place] [address] Carlota Jin MD 1 [facility], [facility] [address] [place] [phone] 01/01/2025 6:45 EDT Treatment [facility] - [place] [address] [place], [place] [phone] Carlota Jin MD 1 [facility], [facility] [address] [place] [phone] 01/03/2025 6:45 EDT Treatment [facility] - [place] [address] [place], [place] [address] Carlota Jin MD 1 [facility], [address] [phone] 01/05/2025 6:45 EDT Treatment [facility] - [place] [address] [place], [place] [address] [phone] Carlota Jin MD 1 [facility], [address] [phone] 01/08/2025 6:45 EDT Treatment [facility] - [place] [address] [place], [place] [address] Carlota Jin MD 1 [facility], [address] [phone] 01/10/2025 6:45 EDT Treatment [facility] - [place] [address] [place] [address] Carlota Jin MD 1 [facility], [address] [phone] 01/12/2025 6:45 EDT Treatment [facility] - [place] [address] [place], [place] [phone] Carlota Jin MD [address] [phone] 01/15/2025 6:45 EDT Treatment [facility] - [place] [address] [place], [place] [address] Carlota Jin MD 1 [facility], [address] [phone] 01/17/2025 6:45 EDT Treatment [facility] - [place] [address] [place], [place] [phone] Carlota Jin MD 1 [facility], [facility] [address] [place] [phone] 01/19/2025 6:45 EDT Treatment [facility] - [place] [address] [place], [place] [phone] Carlota Jin MD 1 [facility], [facility] [address] [place] [phone] 01/22/2025 6:45 EDT Treatment [facility] - [place] [address] [place], [place] [phone] Carlota Jin MD 1 [facility], [facility] [address] [place] [phone] 01/24/2025 6:45 EDT Treatment [facility] - [place] [address] [place], [place] [phone] Carlota Jin MD 1 [facility], [facility] [address] [place] [phone] 01/26/2025 6:45 EDT Treatment [facility] [place] [address] [place], [place] [phone] Carlota Jin MD 1 [facility], [facility] [address] [place] [phone] 01/29/2025 6:45 EDT Treatment [facility] - [place] [address] [place], [place] [address] Carlota Jin MD 1 [facility], [facility] [address] [place] [phone] 01/31/2025 6:45 EDT Treatment [facility] - [place] [address] [place], [place] [phone] Carlota Jin MD 1 [facility], [address] [phone] 02/02/2025 6:45 EDT Treatment [facility] - [place] [address] [place], [place] [phone] Carlota Jin MD 1 [facility], [address] [phone] 02/05/2025 6:45 EDT Treatment [facility] - [place] [address] [place], [place] [phone] Carlota Jin MD 1 [facility], [address] [phone] 02/07/2025 6:45 EDT Treatment [facility] - [place] [address] [place], [place] [address] Carlota Jin MD 1 [facility], [facility] [address] [place] [phone] 02/09/2025 6:45 EDT Treatment [facility] - [place] [address] [place], [place] [phone] Carlota Jin MD 1 [facility], [facility] [address] [place] [phone] 02/12/2025 6:45 EDT Treatment [facility] - [place] [address] [place], [place] [address] Carlota Jin MD 1 [facility], [facility] [address] [place] [phone] 02/14/2025 6:45 EDT Treatment [facility] - [place] [address] [place], [place] [phone] Carlota Jin MD 1 [facility], [facility] [address] [place] [phone] 02/16/2025 6:45 EDT Treatment [facility] - [place] [address] [place], [place] [address] Carlota Jin MD 1 [facility], [facility] [address] [place] [phone] 02/19/2025 6:45 EDT Treatment [facility] - [place] [address] [place] [address] Carlota Jin MD 1 [facility], [facility] [address] [place] [phone] 02/21/2025 6:45 EDT Treatment [facility] [place] [address] [place], [place] [address] Carlota Jin MD 1 [facility], [facility] [address] [place] [phone] documented as of this encounter Visit Diagnoses Not on filedocumented in this encounter Care Teams Content Development Specialist Relationship Specialty Start Date End Date Ken Greer MD [address] [place] [address] PCP - General 07/07/23 Kiel Powers Cable Machine Operator Nephrology 05/31/24 documented as of this encounter
--- OUTSIDE RECORDS SUMMARY | 2024-12-05 12:01 | XMS_ITS | Encounter Summary ---
Author Organization [facility] Address [address] [place] [address] Care Team Providers Care Casting House Worker Name Role Phone Ken Greer MD Primary Care Provider [phone] Kiel Powers Unavailable Unavailable Reason for Visit * Episode Based Medications (Routine) - New Request Specialty Diagnoses / Procedures Referred By Nader gardiner Referred To Contact Diagnoses ESRD (end stage renal disease) ([facility]) Carlota Jin MD [address] [place] [address] [address] [place] [address] Phone: tel: fax: [facility] [address] [place] [address] Phone: tel: fax: Referral ID Status Reason Start Date Expiration Date V isits Requested Visits Authorized [id number] New Request 03/17/2024 1 1 Encounter Details Date Type Department Care Team (Latest Contact Info) Description 06/16/2024 6:45 EDT Treatment [facility] [address] [place], [place] [id number] Carlota Jin MD [address] [place] [address], [facility] [address] [place] [phone] ESRD (end stage renal disease) ([facility]) (Primary Dx); Anemia of chronic renal failure, unspecified CKD stage; Hypoalbuminemia; Secondary hyperparathyroidism ([facility]) Social History Tobacco Use Types [...] time in the past 12 m [facility], were you homeless or living in [...] living situation today? I have a [facility] place to live 05/30/[address] you li ve. Do you have problems with any of the following? None of the above 05/30/2024 Interpersonal Safety Answer Date Record ed How often does anyone, martin lyons family and friends, physically hurt you? Never 05/30/2024 How often does anyone, martni lyons family and friends, insult or talk [...] In the past 12 months has th [employer], gas, oil, or water [employer] threatened to shut off services in your [...] - Temperature - - Respiratory Rate 16 06/16/2024 0620 EDT Oxygen Saturation - - Inhaled Oxygen Concentration - - Weight 78.9 kg (173 lb 15.1 oz) 06/16/2024 0626 EDT Height - - Body Mass Index 24.96 12/20/2023 2202 EST documented in this encounter [...] Flowsheet Note - Marcela Cox RN - 06/16/2024 1426 EDT 06/16/24 1038 Post-Hemodialysis Assessment Total Blood Processed (L) 90.78 Liters On Line Clearance: spKt/V 1.59 spKt/V Dialyzer Clearance Lightly streaked Treatment UFR (ml:kg:hr) 11.56 ml:kg:hr Final Critline Profile (%/hr) -0.9 Final Profile Profile A Critline refill Negative (H1: 34.7 H2: 34.6) Fluid Removed (L) 4 L Post-Dialysis Scale Weight 94.4 kg (208 lb 1.8 oz) Wheelchair Weight 19 kg (41 lb 14.2 oz) Prosthesis Weight 0 kg (0 lb) Post-Treatment Weight (kg) 75.4 Treatment Weight Change (kg) 3.5 kg Day [employer] Weight (kg) 75.4 Post Sitting/Lying BP 180/90 Post Sitting/Lying pulse 69 Temp 36.3 ??C (97.3 ??F) Temp src Temporal Minutes Short -241 Post access assessment Bruit present: Yes Thrill Present AVF/AFG Hemostasis achieved Yes Note Patient held for 10mins with blue clamps Orientation Alert and Oriented [...] Contact Info) Description 12/06/2024 6:45 EST Treatment [facility] [address] [place] [address] Carlota Jin MD [address] [phone] 12/08/2024 6:45 EST Treatment [facility] [address] [place], [place] [phone] Carlota Jin MD [address] [phone] 12/11/2024 6:45 EST Treatment [facility] [address] [place], [place] [id number] Carlota Jin MD [address] [place] [phone] 12/13/2024 6:45 EST Treatment [facility] [address] [place], [place] [id number] Carlota Jin MD [address] [place] [phone] 12/15/2024 6:45 EST Treatment [facility] [address] [place], [place] [id number] Carlota Jin MD 1 [facility], [facility] [address] [place] [phone] 12/18/2024 6:45 EST Treatment [facility] [address] [place], [place] [address] Carlota Jin MD 1 [facility], [facility] [address] [place] [phone] 12/20/2024 6:45 EST Treatment [facility] [address] [place], [place] [id number] Carlota Jin MD 1 [facility], [facility] [address] [place] [phone] 12/22/2024 6:45 EST Treatment [facility] [address] [place], [place] [id number] Carlota Jin MD 1 [facility], [facility] [address] [place] [phone] 12/25/2024 6:45 EST Treatment [facility] [address] [place] [address] Carlota Jin MD 1 [facility], [facility] [address] [place] [phone] 12/27/2024 6:45 EST Treatment [facility] [address] [place], [place] [id number] Carlota Jin MD 1 [facility], [facility] [address] [place] [phone] 12/29/2024 6:45 EST Treatment [facility] [address] [place], [place] [id number] Carlota Jin MD 1 [facility], [facility] [address] [place] [phone] 01/01/2025 6:45 EDT Treatment [facility] [address] [place], [place] [id number] Carlota Jin MD [address] [place] [address], [address] [phone] 01/03/2025 6:45 EDT Treatment [facility] [address] [place], [place] [phone] Carlota Jin MD [address] [place] [address], [address] [phone] 01/05/2025 6:45 EDT Treatment [facility] [address] [place], [place] [phone] Carlota Jin MD [address] [place] [address], [facility] [address] [place] [phone] 01/08/2025 6:45 EDT Treatment [facility] [address] [place], [place] [phone] Carlota Jin MD 1 [facility], [facility] [address] [place] [phone] 01/10/2025 6:45 EDT Treatment [facility] [address] [place], [place] [phone] Carlota Jin MD 1 [facility], [facility] [address] [place] [phone] 01/12/2025 6:45 EDT Treatment [facility] [address] [place], [place] [address] Carlota Jin MD 1 [facility], [facility] [address] [place] [phone] 01/15/2025 6:45 EDT Treatment [facility] [address] [place], [place] [id number] Carlota Jin MD 1 [facility], [facility] [address] [place] [phone] 01/17/2025 6:45 EDT Treatment [facility] [address] [place] [address] Carlota Jin MD 1 [facility], [facility] [address] [place] [phone] 01/19/2025 6:45 EDT Treatment [facility] [address] [place], [place] [phone] Carlota Jin MD 1 [facility], [facility] [address] [place] [phone] 01/22/2025 6:45 EDT Treatment [facility] [address] [place], [place] [phone] Carlota Jin MD 1 [facility], [facility] [address] [place] [phone] 01/24/2025 6:45 EDT Treatment [facility] [address] [place], [place] [id number] Carlota Jin MD 1 [facility], [facility] [address] [place] [phone] 01/26/2025 6:45 EDT Treatment [facility] [address] [place], [place] [phone] Carlota Jin MD 1 [facility], [facility] [address] [place] [phone] 01/29/2025 6:45 EDT Treatment [facility] [address] [place] [address] Carlota Jin MD 1 [facility], [address] [phone] 01/31/2025 6:45 EDT Treatment [facility] [address] [place], [place] [phone] Carlota Jin MD 1 [facility], [facility] [address] [place] [phone] 02/02/2025 6:45 EDT Treatment [facility] [address] [place], [place] [phone] Carlota Jin MD 1 [facility], [facility] [address] [place] [phone] 02/05/2025 6:45 EDT Treatment [facility] [address] [place] [address] Carlota Jin MD 1 [facility], [facility] [address] [place] [phone] 02/07/2025 6:45 EDT Treatment [facility] [address] [place] [address] Carlota Jin MD 1 [facility], [facility] [address] [place] [phone] 02/09/2025 6:45 EDT Treatment [facility] [address] [place] [address] Carlota Jin MD 1 [facility], [address] [phone] 02/12/2025 6:45 EDT Treatment [facility] [address] [place] [address] Carlota Jin MD 1 [facility], [address] [phone] 02/14/2025 6:45 EDT Treatment [facility] [address] [place] [address] Carlota Jin MD 1 [facility], [facility] [address] [place] [phone] 02/16/2025 6:45 EDT Treatment [facility] [address] [place], [place] [phone] Carlota Jin MD 1 [facility], [facility] [address] [place] [phone] 02/19/2025 6:45 EDT Treatment [facility] [address] [place], [place] [phone] Carlota Jin MD 1 [facility], [facility] [address] [place] [phone] 02/21/2025 6:45 EDT Treatment [facility] [address] [place], [place] [phone] Carlota Jin MD 1 [facility], [facility] [address] [place] [phone] documented as of this encounter Procedures Procedure Name Priority Date/Time Associated Diagnosis Comments HEMODIALYSIS Routine 06/16/2024 6:21 EDT ESRD (end stage renal disease) ([facility]) documented in this encounter Visit Diagnoses Diagnosis ESRD (end stage renal disease) ([facility])- Primary End stage renal disease Anemia of [...] oral, EVERY 4 HOURS PRN, Starting on Wed06/16/24 at 1044, Until Wed06/16/24 at 1626, Pain, Routine, DialysisIndications:ESRD (end stage renal disease) ([facility]) Given 06/16/2024 10:44 EDT 650 mg calcium carbonate (TUMS) tablet 500 mg (200 mg elemental calcium) 2 Tablet 2 Tablet, oral, ONCE IN DIALYSIS, 1 dose, On Wed06/16/24 at 0645, Routine, DialysisIndications:ESRD (end stage renal disease) ([facility]),Secondary hyperparathyroidism ([facility]) Given 06/16/2024 6:46 EDT 2 Tablets epoetin ken (EPOGEN) 20,000 unit/2 mL injection 12,000 Units 12,000 Units, intravenous, ONCE IN DIALYSIS, 1 dose, On Wed06/16/24 at 0645, Routine, DialysisIndications:ESRD (end stage renal disease) ([facility]),Anemia of chronic renal failure, unspecified CKD stage Given 06/16/2024 6:46 EDT 12,000 Units heparin injection 7,000 Units 7,000 Units, intravenous, ONCE IN DIALYSIS, 1 dose, On Wed06/16/24 at 0645, Routine, Dialysis, Now x1 bolus 3400 units to be given at the beginning of dialysis 900 units/hour to be given over the course of dialysis (7000 units total). Stop 1 hour prior to end of treatment. To be administered per Policy [id number].Indications:ESRD (end stage renal disease) ([facility]) Given 06/16/2024 6:46 EDT 7,000 Units LiquaCel liquid protein liquid 30 mL 30 mL, oral, ONCE IN DIALYSIS, 1 dose, On Wed06/16/24 at 0645, Patient's flavor preference: either, RoutineIndications:ESRD (end stage renal disease) ([facility]),Hypoalbuminemia Given 06/16/2024 6:46 EDT 30 mL documented in this encounter Orders Dialysis Count Last Ordered Date First Orde red Date HEMODIALYSIS 1 06/16/2024 documented in this encounter Care Teams Casting House Worker Relationship Specialty Start Date End Date Ken Greer MD [address] [place] [address] PCP - General 07/07/23 Kiel Powers [facility] Nephrology 05/31/24 documented as of this encounter
--- OUTSIDE RECORDS SUMMARY | 2024-12-05 12:01 | XMS_ITS | Encounter Summary ---
Author Organization [facility] Address [address] [place] [address] Care Team Providers Care Grant Administrator Name Role Phone Ken Greer MD Primary Care Provider [phone] Kiel Powers Unavailable Unavailable Reason for Visit * Episode Based Medications (Routine) - New Request Specialty Diagnoses / Procedures Referred By Nader gardiner Referred To Contact Diagnoses ESRD (end stage renal disease) ([facility]) Carlota Jin MD [address] [place] [address] [address] [place] [address] Phone: tel: fax: [facility] [place] [address] [place] [address] Phone: tel: fax: Referral ID Status Reason Start Date Expiration Date V isits Requested Visits Authorized [id number] New Request 03/17/2024 1 1 Encounter Details Date Type Department Care Team (Latest Contact Info) Description 06/26/2024 6:45 EDT Treatment [facility] [address] [place], [place] [id number] Carlota Jin MD [address] [place] [address], [facility] [address] [place] [address] ESRD (end stage renal disease) ([facility]) (Primary Dx); Anemia of chronic renal failure, unspecified CKD stage; Hypoalbuminemia; Secondary hyperparathyroidism ([facility]) Social History Tobacco Use Types Packs/Day Years Used Date Smoking Tobacco: Every Day Cigarettes 1 26.1 Started: 1998 Smokeless Tobacco: Never Alcohol Use Standard Drinks/Week Comments Yes 0 (1 standard drink = 0.6 oz pur e alcohol) Socially [facility] Utilities Answer Date Recorded [...] your living situation today? [facility] 05/30/2024 Think about [...] the past 12 months has th e [employer], gas, oil, or water [employer] threatened to shut off services in your [...] - - Temperature - - Respiratory Rate 18 06/26/2024 0631 EDT Oxygen Saturation - - Inhaled Oxygen Concentration - - Weight 83.5 kg (184 lb 1.4 oz) 06/26/2024 0631 E DT Height - - Body Mass Index 26.41 12/20/2023 2202 EST documented in this encounter [...] Flowsheet Note - Marcela Cox RN - 06/26/2024 1306 EDT 06/26/24 1048 Post-Hemodialysis Assessment Total Blood Processed (L) 89.54 Liters On Line Clearance: spKt/V 1.54 spKt/V Dialyzer Clearance Lightly streaked Treatment UFR (ml:kg:hr) 15.46 ml:kg:hr Final Critline Profile (%/hr) -1.64 Final Profile Profile A Critline refill Positive (H1: 35.5 H2:35.0) Fluid Removed (L) 5 L Post-Dialysis Scale Weight 97.7 kg (215 lb 6.2 oz) Wheelchair Weight 19.1 kg (42 lb 1.7 oz) Prosthesis Weight 0 kg (0 lb) Post-Treatment Weight (kg) 78.6 Treatment Weight Change (kg) 4.9 kg Day Target Weight (kg) 79 Post Sitting/Lying BP 161/86 Post Sitting/Lying pulse 68 Temp 36.4 ??C (97.5 ??F) Temp src Temporal Minutes Short -242 Post access assessment Bruit present: Yes Thrill Present AVF/AFG Hemostasis achieved Yes Note Patient held for 10mins wiht blue clamps and had no issues with rebleeding Orientation Alert and Oriented x3 Yes Time Yes Place Yes Person Yes Cooperative Yes Disoriented No Discharge Ambulation Methods With patient transport;Departs via w/c Wrap up items Patient Response to Treatment Tolerated tx well. Removed 5L UF goal without difficulty. Comments No issues during tx, no concerns voiced post tx. Reeducated pt and regarding fluid restriction. documented in this encounter Plan of Treatment Upcoming Encounters Date Type Department Care Team (Late st Contact Info) Description 12/06/2024 6:45 EST Treatment [facility] [place] [address] [place], [place] [id number] Carlota Jin MD [address] [place] [phone] 12/08/2024 6:45 EST Treatment [facility] [address] [place], [place] [phone] Carlota Jin MD [address] [place] [phone] 12/11/2024 6:45 EST [facility] [address] [place], [place] [id number] Carlota Jin MD [address] [place] [phone] 12/13/2024 6:45 EST Treatment [facility] [address] [place], [place] [phone] Carlota Jin MD [address] [place] [phone] 12/15/2024 6:45 EST Treatment [facility] [address] [place], [place] [id number] Carlota Jin MD 1 [facility], [facility] [address] [place] [phone] 12/18/2024 6:45 EST Treatment [facility] [place] [address] [place], [place] [phone] Carlota Jin MD 1 [facility], [facility] [address] [place] [phone] 12/20/2024 6:45 EST Treatment [facility] [place] [address] [place] [address] Carlota Jin MD 1 [facility], [facility] [address] [place] [phone] 12/22/2024 6:45 EST Treatment [facility] [place] [address] [place], [place] [phone] Carlota Jin MD 1 [facility], [facility] [address] [place] [phone] 12/25/2024 6:45 EST Treatment [facility] [place] [address] [place] [address] Carlota Jin MD 1 [facility], [facility] [address] [place] [phone] 12/27/2024 6:45 EST Treatment [facility] [place] [address] [place], [place] [id number] Carlota Jin MD 1 [facility], [facility] [address] [place] [phone] 12/29/2024 6:45 EST Treatment [facility] [place] [address] [place], [place] [phone] Carlota Jin MD 1 [facility], [facility] [address] [place] [phone] 01/01/2025 6:45 EDT Treatment [facility] [place] [address] [place], [place] [id number] Carlota Jin MD 1 [facility], [facility] [address] [place] [phone] 01/03/2025 6:45 EDT Treatment [facility] [place] [address] [place], [place] [phone] Carlota Jin MD 1 [facility], [address] [phone] 01/05/2025 6:45 EDT Treatment [facility] [place] [address] [place], [place] [id number] Carlota Jin MD 1 [facility], [facility] [address] [place] [phone] 01/08/2025 6:45 EDT Treatment [facility] [place] [address] [place], [place] [id number] Carlota Jin MD 1 [facility], [facility] [address] [place] [phone] 01/10/2025 6:45 EDT Treatment [facility] [place] [address] [place], [place] [address] Carlota Jin MD 1 [facility], [facility] [address] [place] [phone] 01/12/2025 6:45 EDT Treatment [facility] [place] [address] [place] [address] Carlota Jin MD 1 [facility], [address] [phone] 01/15/2025 6:45 EDT Treatment [facility] [place] [address] [place], [place] [id number] Carlota Jin MD 1 [facility], [address] [phone] 01/17/2025 6:45 EDT Treatment [facility] [place] [address] [place] [address] Carlota Jin MD 1 [facility], [address] [phone] 01/19/2025 6:45 EDT Treatment [facility] [place] [address] [place], [place] [id number] Carlota Jin MD [address] [phone] 01/22/2025 6:45 EDT Treatment [facility] [place] [address] [place], [place] [phone] Carlota Jin MD 1 [facility], [facility] [address] [place] [phone] 01/24/2025 6:45 EDT Treatment [facility] [place] [address] [place], [place] [phone] Carlota Jin MD 1 [facility], [facility] 2 [place] [phone] 01/26/2025 6:45 EDT Treatment [facility] [place] [address] [place], [place] [phone] Carlota Jin MD 1 [facility], [facility] [address] [place] [phone] 01/29/2025 6:45 EDT Treatment [facility] [place] [address] [place], [place] [phone] Carlota Jin MD 1 [facility], [facility] [address] [place] [phone] 01/31/2025 6:45 EDT Treatment [facility] [place] [address] [place], [place] [phone] Carlota Jin MD 1 [facility], [facility] [address] [place] [phone] 02/02/2025 6:45 EDT Treatment [facility] [address] [place], [place] [phone] Carlota Jin MD 1 [facility], [facility] [address] [place] [phone] 02/05/2025 6:45 EDT Treatment [facility] [place] [address] [place], [place] [address] Carlota Jin MD 1 [facility], [facility] [address] [place] [phone] 02/07/2025 6:45 EDT Treatment [facility] [place] [address] [place], [place] [phone] Carlota Jin MD 1 [facility], [facility] [address] [place] [phone] 02/09/2025 6:45 EDT Treatment [facility] [place] [address] [place], [place] [phone] Carlota Jin MD 1 [facility], [address] [phone] 02/12/2025 6:45 EDT Treatment [facility] [place] [address] [place], [place] [phone] Carlota Jin MD 1 [facility], [facility] [address] [place] [phone] 02/14/2025 6:45 EDT Treatment [facility] [place] [address] [place], [place] [phone] Carlota Jin MD 1 [facility], [facility] [address] [place] [phone] 02/16/2025 6:45 EDT Treatment [facility] [place] [address] [place], [place] [phone] Carlota Jin MD 1 [facility], Level [address] [place] [phone] 02/19/2025 6:45 EDT Treatment [facility] [place] [address] [place], [place] [phone] Carlota Jin MD 1 [facility], [facility] [address] [place] [phone] 02/21/2025 6:45 EDT Treatment [facility] [place] [address] [place] [address] Carlota Jin MD 1 [facility], [facility] [address] [place] [phone] documented as of this encounter Procedures Procedure Name Priority Date/Time Associated Diagnosis Comments POSTDIALYSIS BUN WITH URR CALCULATION Routine 06/26/2024 11:41 EDT ESRD (end stage renal disease) ([facility]) TRANSFERRIN SATURATION Routine 06/26/2024 7:16 EDT ESRD (end stage renal disease) ([facility]) DIALYSIS ROUTINE - DIALYSIS ONLY (BUN, K, NA, CL, CO2, SANJEEV, ALB, MG, PHOS, ALKP, AST) Routine 06/26/2024 7:16 EDT ESRD (end stage renal disease) ([facility]) PROFILE IRON STUDIES (INCLUDES IRON, IBC, AND FERRITIN) Routine 06/26/2024 7:16 EDT ESRD (end stage renal disease) ([facility]) PTT Routine 06/26/2024 7:16 EDT ESRD (end stage renal disease) ([facility]) FERRITIN Routine 06/26/2024 7:16 EDT ESRD (end stage renal disease) ([facility]) HEMODIALYSIS Routine 06/26/2024 6:31 EDT ESRD (end stage renal disease) ([facility]) documented in this encounter Results * (ABNORMAL) POSTDIALYSIS BUN WITH URR CALCULATION (06/26/2024 11:41 EDT) Pathologist [facility] BUN, Postdialysis 21 10 - 26 mg/dL 06/27/2024 22:13 EDT [facility] Urea Reduction Rate 68.7 Not Established % 06/27/2024 22:13 EDT [facility] Comment: NOTE: Reference range not established for Urea Reduction Rate. BUN 67(H) 10 - 26 mg/dL 06/27/2024 22:13 EDT [facility] Blood VENOUS BLOOD / Unknown Venipuncture / Unknown 06/26/2024 11:41 EDT 06/26/2024 11:41 EDT Skye Gomez PAIN MANAGEMENT PHYSICIAN CHEMISTRY & BLOOD GAS ORDER FRANSISCO Final Result Performing Organization Address [facility] Co de Phone Number [facility] [address] [place] [address] * (ABNORMAL) FERRITIN (06/26/2024 7:16 EDT) [facility] Ferritin 332(H) 22 - 322 ng/mL 06/27/2024 23:09 EDT [facility] Blood VENOUS BLOOD / Unknown Venipuncture / Unknown 06/26/2024 7:16 EDT 06/26/2024 7:16 EDT Skye Gomez PAIN MANAGEMENT PHYSICIAN CHEMISTRY & BLOOD GAS ORDER FRANSISCO Final Result Performing Organization Address [facility]/ZIP Co de Phone Number [facility] [address] [place] [address] * (ABNORMAL) TRANSFERRIN SATURATION (06/26/2024 7:16 EDT) Iron 32(L) 49 - 181 ??g/dL 06/27/2024 22:19 EDT [facility] Iron Binding Capacity 210(L) 240 - 450 ??g/dL 06/27/2024 22:19 EDT [facility] Transferrin Saturation 15 15 - 45 % 06/27/2024 22:19 EDT [facility] Blood VENOUS BLOOD / Unknown Venipuncture / Unknown 06/26/2024 7:16 EDT 06/26/2024 7:16 EDT us Skye Gomez NP CHEMISTRY & BLOOD GAS ORDER FRANSISCO Final Result [facility] [address] [place] [address] * PTT (06/26/2024 7:16 EDT) PTT 35 26 - 37 secs 06/27/2024 22:39 EDT [facility] Blood VENOUS BLOOD / Unknown Venipuncture / Unknown 06/26/2024 7:16 EDT 06/26/2024 11:41 EDT us Carlota Jin MD HEMATOLOGY & PF4 ORDERABL ES Final Result Performing Organization Address [facility]/ZIP Co de Phone Number [facility] [address] [place] [address] * (ABNORMAL) DIALYSIS ROUTINE - DIALYSIS ONLY (BUN, K, NA, CL, CO2, SANJEEV, ALB, MG, PHOS, ALKP, AST) (06/26/2024 7:16 EDT) Sodium 132(L) 136 - 145 mmol/L 06/27/2024 22:10 EDT [facility] Potassium 7.1(H) 3.5 - 5.0 mmol/L 06/27/2024 22:10 EDT [facility] Chloride 96 96 - 110 mmol/L 06/27/2024 22:10 EDT [facility] CO2 Total 22 22 - 32 mmol/L 06/27/2024 22:10 [facility] Calcium 8.6 8.5 - 10.5 mg/dL 06/27/2024 22:10 [facility] Albumin 3.2(L) 3.4 - 4.9 g/dL 06/27/2024 22:10 [facility] Phosphorus 8.9(H) 2.5 - 4.5 mg/dL 06/27/2024 22:10 [facility] Calcium Phos Product 76.5 See Note mg/dL 06/27/2024 22:10 [facility] Comment: NOTE: Reference range not established BUN, Predialysis 67(H) 10 - 26 mg/dL 06/27/2024 22:10 [facility] AST 22 15 - 46 U/L 06/27/2024 22:10 [facility] Alkaline Phosphatase 124 38 - 126 U/L 06/27/2024 22:10 [facility] Magnesium 2.0 1.7 - 2.8 mg/dL 06/27/2024 22:10 [facility] Anion Gap 14 5 - 14 mmol/L 06/27/2024 22:10 [facility] Calculated Calcium 9.2 8.9 - 10.5 mg/dL 06/27/2024 22:10 [facility] Blood VENOUS BLOOD / Unknown Venipuncture / Unknown 06/26/2024 7:16 EDT 06/26/2024 7:16 EDT Skye Gomez NP CHEMISTRY & BLOOD GAS ORDER FRANSISCO Final Result [facility] [address] [place] [address] documented in this encounter Visit Diagnoses Diagnosis ESRD (end stage renal disease) ([facility])- Primary End stage renal disease Anemia of chronic renal failure, unspecified CKD stage Hypoalbuminemia Other disorders of plasma protein metabolism Secondary hyperparathyroidism ([facility]) Secondary hyperparathyroidism (of renal origin) documented in this encounter Administered Medications Inactive Administered Medications - up to 3 most recent administrations Medication Order MAR Action Action Date Dose Rate Site acetaminophen (TYLENOL) tablet 650 mg 650 mg, oral, EVERY 4 HOURS PRN, Starting on Wed06/26/24 at 0633, Until Wed06/26/24 at 1506, Pain, Routine, DialysisIndications:ESRD (end stage renal disease) ([facility]) Given 06/26/2024 6:54 EDT 650 mg calcium carbonate (TUMS) tablet 500 mg (200 mg elemental calcium) 2 Tablet 2 Tablet, oral, ONCE IN DIALYSIS, 1 dose, On Wed06/26/24 at 0700, Routine, DialysisIndications:ESRD (end stage renal disease) ([facility]),Secondary hyperparathyroidism ([facility]) Given 06/26/2024 6:54 EDT 2 Tablets epoetin ken (EPOGEN) 20,000 unit/2 mL injection 12,000 Units 12,000 Units, intravenous, ONCE IN DIALYSIS, 1 dose, On Wed06/26/24 at 0700, Routine, DialysisIndications:ESRD (end stage renal disease) ([facility]),Anemia of chronic renal failure, unspecified CKD stage Given 06/26/2024 6:54 EDT 12,000 Units heparin injection 5,000 Units 5,000 Units, intravenous, ONCE IN DIALYSIS, 1 dose, On Wed06/26/24 at 0700, Routine, Dialysis, Now x1 bolus 2600 units to be given at the beginning of dialysis 800 units/hour to be given over the course of dialysis (5000 units total). Stop 1 hour prior to end of treatment. To be administered per Policy [id number].Indications:ESRD (end stage renal disease) ([facility]) Given 06/26/2024 6:54 EDT 5,000 Units LiquaCel liquid protein liquid 30 mL 30 mL, oral, ONCE IN DIALYSIS, 1 dose, On Wed06/26/24 at 0700, Patient's flavor preference: either, RoutineIndications:ESRD (end stage renal disease) ([facility]),Hypoalbuminemia Given 06/26/2024 6:54 EDT 30 mL documented in this encounter Orders Dialysis Count Last Ordered Date First Orde red Date HEMODIALYSIS 1 06/26/2024 documented in this encounter Care Teams Grant Administrator Relationship Specialty Start Date End Date Ken Greer MD [address] [place] [address] PCP - General 07/07/23 Kiel Powers Unbundler Nephrology 05/31/24 documented as of this encounter
--- OUTSIDE RECORDS SUMMARY | 2024-12-05 12:01 | XMS_ITS | Encounter Summary ---
Author Organization [facility] Address [address] [place] [address] Care Team Providers Care Floorperson Name Role Phone Ken Greer MD Primary Care Provider [phone] Kiel Powers Unavailable Unavailable Reason for Visit * Episode Based Medications (Routine) - New Request Specialty Diagnoses / Procedures Referred By Nader gardiner Referred To Contact Diagnoses ESRD (end stage renal disease) ([facility]) Carlota Jin MD [address] [place] [address] 2 [place] [address] Phone: tel: fax: [facility] [place] [address] [place] [address] Phone: tel: fax: Referral ID Status Reason Start Date Expiration Date V isits Requested Visits Authorized [id number] New Request 03/17/2024 1 1 Encounter Details Date Type Department Care Team (Latest Contact Info) Description 06/21/2024 6:45 EDT Treatment [facility] [address] [place], [place] [id number] Carlota Jin MD [address] [place] [address], [facility] [address] [place] [address] ESRD (end stage renal disease) ([facility]) (Primary Dx); Anemia of chronic renal failure, unspecified CKD stage; Hypoalbuminemia; Secondary hyperparathyroidism ([facility]) Social History Tobacco Use Types [...] your living situation today? I have a [facility] place to live 05/30/2024 [...] In the past 12 months has th [employer] gas, oil, or water [employer] threatened to shut off services in your [...] - Temperature - - Respiratory Rate 16 06/21/2024 0622 EDT Oxygen Saturation - - Inhaled Oxygen Concentration - - Weight 80.2 kg (176 lb 12.9 oz) 06/21/2024 0626 EDT Height - - Body Mass Index 25.37 12/20/2023 2202 EST documented in this encounter [...] Flowsheet Note - Marcela Cox RN - 06/21/2024 1349 EDT 06/21/24 1043 Post-Hemodialysis Assessment Total Blood Processed (L) 90.3 Liters On Line Clearance: spKt/V 1.56 spKt/V Dialyzer Clearance Lightly streaked Treatment UFR (ml:kg:hr) 12.73 ml:kg:hr Critline refill Not done Fluid Removed (L) 4.2 L Post-Dialysis Scale Weight 95.3 kg (210 lb 1.6 oz) Wheelchair Weight 19 kg (41 lb 14.2 oz) Prosthesis Weight 0 kg (0 lb) Post-Treatment Weight (kg) 76.3 Treatment Weight Change (kg) 3.9 kg Day Target Weight (kg) 76.5 Post Sitting/Lying BP 169/84 Post Sitting/Lying pulse 66 Temp 36.6 ??C (97.9 ??F) Temp src Temporal Minutes Short -241 Post access assessment AVF/AFG Hemostasis achieved Yes Note 10 minute hold both sites, (A) site bleed two minutes into hold, pt moving around w/ clamps, stopper changed and reclamped no additional time Orientation Alert and Oriented x3 Yes Time [...] - [place] [address] [place], [place] [id number] Carlota Jin MD [address] [phone] 12/08/2024 6:45 EST Treatment [facility] [place] [address] [place], [place] [id number] Carlota Jin MD [address] [place] [phone] 12/11/2024 6:45 EST Treatment [facility] [address] [place], [place] [id number] Carlota Jin MD [address] [place] [phone] 12/13/2024 6:45 EST Treatment [facility] [address] [place], [place] [id number] Carlota Jin MD [address] [place] [phone] 12/15/2024 6:45 EST Treatment [facility] [address] [place], [place] [id number] Carlota Jin MD [address] [place] [phone] 12/18/2024 6:45 EST Treatment [facility] [place] [address] [place], [place] [id number] Carlota Jin MD [address] [facility], [facility] 2 [place] [phone] 12/20/2024 6:45 EST Treatment [facility] [place] [address] [place], [place] [id number] Carlota Jin MD [address] [facility], [facility] 2 [place] [phone] 12/22/2024 6:45 EST Treatment [facility] [place] [address] [place] [address] Carlota Jin MD [address] [facility], [facility] 2 [place] [phone] 12/25/2024 6:45 EST Treatment [facility] [place] [address] [place], [place] [id number] Carlota Jin MD 1 [facility], [facility] 2 [place] [phone] 12/27/2024 6:45 EST Treatment [facility] [place] [address] [place], [place] [id number] Carlota Jin MD [address] [facility], [facility] 2 [place] [phone] 12/29/2024 6:45 EST Treatment [facility] [place] [address] [place], [place] [id number] Carlota Jin MD [address] [facility], [facility] 2 [place] [phone] 01/01/2025 6:45 EDT Treatment [facility] [place] [address] [place], [place] [id number] Carlota Jin MD [address] [facility], [facility] 2 [place] [phone] 01/03/2025 6:45 EDT Treatment [facility] [place] [address] [place], [place] [id number] Carlota Jin MD [address] [facility], [facility] 2 [place] [phone] 01/05/2025 6:45 EDT Treatment [facility] [place] [address] [place], [place] [id number] Carlota Jin MD [address] [facility], [facility] 2 [place] [phone] 01/08/2025 6:45 EDT Treatment [facility] [place] [address] [place], [place] [id number] Carlota Jin MD [address] [facility], [facility] 2 [place] [phone] 01/10/2025 6:45 EDT Treatment [facility] [place] [address] [place], [place] [id number] Carlota Jin MD [address] [facility], [facility] 2 [place] [phone] 01/12/2025 6:45 EDT Treatment [facility] [place] [address] [place], [place] [id number] Carlota Jin MD 1 [facility], [facility] 2 [place] [phone] 01/15/2025 6:45 EDT Treatment [facility] [place] [address] [place], [place] [id number] Carlota Jin MD 1 [facility], [facility] 2 [place] [phone] 01/17/2025 6:45 EDT Treatment [facility] [place] [address] [place], [place] [id number] Carlota Jin MD 1 [facility], [facility] 2 [place] [phone] 01/19/2025 6:45 EDT Treatment [facility] [address] [place], [place] [id number] Carlota Jin MD 1 [facility], [facility] 2 [place] [phone] 01/22/2025 6:45 EDT Treatment [facility] [address] [place], [place] [id number] Carlota Jin MD 1 [facility], [facility] 2 [place] [phone] 01/24/2025 6:45 EDT Treatment [facility] [place] [address] [place], [place] [id number] Carlota Jin MD [address] [facility], [facility] 2 [place] [phone] 01/26/2025 6:45 EDT Treatment [facility] [place] [address] [place], [place] [id number] Carlota Jin MD [address] [place] [address], [address] [phone] 01/29/2025 6:45 EDT Treatment [facility] [place] [address] [place], [place] [id number] Carlota Jin MD [address] [place] [address], [address] [phone] 01/31/2025 6:45 EDT Treatment [facility] [place] [address] [place], [place] [id number] Carlota Jin MD [address] [facility], [facility] 2 [place] [phone] 02/02/2025 6:45 EDT Treatment [facility] [place] [address] [place], [place] [id number] Carlota Jin MD [address] [facility], [facility] 2 [place] [phone] 02/05/2025 6:45 EDT Treatment [facility] [place] [address] [place], [place] [phone] Carlota Jin MD 1 [facility], [facility] 2 [place] [phone] 02/07/2025 6:45 EDT Treatment [facility] [place] [address] [place] [address] Carlota Jin MD 1 [facility], [facility] 2 [place] [phone] 02/09/2025 6:45 EDT Treatment [facility] [place] [address] [place], [place] [address] Carlota Jin MD [address] [facility], [facility] 2 [place] [phone] 02/12/2025 6:45 EDT Treatment [facility] [place] [address] [place] [address] Carlota Jin MD [address] [facility], [facility] 2 [place] [phone] 02/14/2025 6:45 EDT Treatment [facility] [place] [address] [place] [address] Carl[address] Jin MD [address] [facility], [facility] 2 [place] [phone] 02/16/2025 6:45 EDT Treatment [facility] [place] [address] [place], [place] [phone] Carlota Jin MD [address] [facility], [facility] 2 [place] [phone] 02/19/2025 6:45 EDT Treatment [facility] [place] [address] [place], [place] [phone] Carlota Jin MD 1 [facility], Level [address] [place] [phone] 02/21/2025 6:45 EDT Treatment [facility] [place] [address] [place], [place] [phone] Carlota Jin MD [address] [facility], Level [address] [place] [phone] documented as of this encounter Procedures Procedure Name Priority Date/Time Associated Diagnosis Comments COMPLETE BLOOD COUNT Routine 06/21/2024 6:35 EDT ESRD (end stage renal disease) ([facility]) HEMODIALYSIS Routine 06/21/2024 6:22 EDT ESRD (end stage renal disease) ([facility]) documented in this encounter Results * (ABNORMAL) COMPLETE BLOOD COUNT (06/21/2024 6:35 EDT) WBC 8.03 4.00 - 10.40 K/cmm 06/21/2024 21:25 [facility] RBC 4.09(L) 4.36 - 5.78 M/cmm 06/21/2024 21:25 [facility] Hemoglobin 11.1(L) 13.8 - 17.3 g/dL 06/21/2024 21:25 [facility] HCT 35.9(L) 39.5 - 50.2 % 06/21/2024 21:25 [facility] MCV 88 81 - 95 fL 06/21/2024 21:25 [facility] MCH 27.1(L) 27.6 - 33.0 pg 06/21/2024 21:25 [facility] MCHC 30.9(L) 32.8 - 36.4 g/dL 06/21/2024 21:25 EDT [facility] RDW-CV 17.8(H) <14.2 % 06/21/2024 21:25 EDT [facility] RDW-SD 56.7(H) <46.0 fl 06/21/2024 21:25 EDT [facility] PLT 265 141 - 377 K/cmm 06/21/2024 21:25 T [facility] MPV 11.4 9.5 - 12.7 fL 06/21/2024 21:25 EDT [facility] Blood VENOUS BLOOD / Unknown Venipuncture / Unknown 06/21/2024 6:35 EDT 06/21/2024 6:35 EDT us Skye Gomez TRENCH PIPE LAYER HEMATOLOGY & PF4 ORDERABLES Final Result Performing Organization Address City/State/[facility] Co de Phone Number [facility] [address] [place] [phone] documented in this encounter Visit Diagnoses Diagnosis ESRD (end stage renal disease) ([facility])- Primary End stage renal disease Anemia of chronic renal failure, unspecified CKD stage Hypoalbuminemia Other disorders of plasma protein metabolism Secondary hyperparathyroidism ([facility]) Secondary hyperparathyroidism (of renal origin) documented in this encounter Administered Medications Inactive Administered Medications - up to 3 most recent administrations Medication Order MAR Action Action Date Dose Rate Site calcium carbonate (TUMS) tablet 500 mg (200 mg elemental calcium) 2 Tablet 2 Tablet, oral, ONCE IN DIALYSIS, 1 dose, On Wed06/21/24 at 0645, Routine, DialysisIndications:ESRD (end stage renal disease) ([facility]),Secondary hyperparathyroidism ([facility]) Given 06/21/2024 6:47 EDT 2 Tablets epoetin ken (EPOGEN) 20,000 unit/2 mL injection 12,000 Units 12,000 Units, intravenous, ONCE IN DIALYSIS, 1 dose, On Wed06/21/24 at 0645, Routine, DialysisIndications:ESRD (end stage renal disease) ([facility]),Anemia of chronic renal failure, unspecified CKD stage Given 06/21/2024 6:47 EDT 12,000 Units heparin injection 7,000 Units 7,000 Units, intravenous, ONCE IN DIALYSIS, 1 dose, On Wed06/21/24 at 0645, Routine, Dialysis, Now x1 bolus 3400 units to be given at the beginning of dialysis 900 units/hour to be given over the course of dialysis (7000 units total). Stop 1 hour prior to end of treatment. To be administered per Policy [id number].Indications:ESRD (end stage renal disease) ([facility]) Given 06/21/2024 6:47 EDT 7,000 Units LiquaCel liquid protein liquid 30 mL 30 mL, oral, ONCE IN DIALYSIS, 1 dose, On Wed06/21/24 at 0645, Patient's flavor preference: either, RoutineIndications:ESRD (end stage renal disease) ([facility]),Hypoalbuminemia Given 06/21/2024 6:47 EDT 30 mL documented in this encounter Orders Dialysis Count Last Ordered Date First Orde red Date HEMODIALYSIS 1 06/21/2024 documented in this encounter Care Teams Floorperson Relationship Specialty Start Date End Date Ken Greer MD [address] [place] [address] PCP - General 07/07/23 Kiel Powers Log Getter Nephrology 05/31/24 documented as of this encounter
--- OUTSIDE RECORDS SUMMARY | 2024-12-05 12:01 | XMS_ITS | Encounter Summary ---
Author Organization [facility] Address [address] [place] [address] Care Team Providers Care Heavy Equipment Engine Mechanic Name Role Phone Ken Greer MD Primary Care Provider [phone] Kiel Powers Unavailable Unavailable Reason for Visit * Episode Based Medications (Routine) - New Request Specialty Diagnoses / Procedures Referred By Nader gardiner Referred To Contact Diagnoses ESRD (end stage renal disease) ([facility]) Carlota Jin MD [address] [place] [address] [address] [place] [address] Phone: tel: fax: [facility] [place] [address] [place] [address] Phone: tel: fax: Referral ID Status Reason Start Date Expiration Date V isits Requested Visits Authorized [id number] New Request 03/17/2024 1 1 Encounter Details Date Type Department Care Team (Latest Contact Info) Description 07/05/2024 6:45 EDT Treatment [facility] [address] [place], [place] [phone] Carlota Jin MD [address] [place] [address], [facility] [address] [place] [phone] ESRD (end stage renal disease) ([facility]) (Primary Dx); Hypoalbuminemia; Secondary hyperparathyroidism ([facility] Social History Tobacco Use Types Packs/Day Years Used Date Smoking Tobacco: Every Day Cigarettes 1 26.1 Started: 1998 Smokeless Tobacco: Never Alcohol Use Standard Drinks/Week Comments Yes 0 (1 standard drink = 0.6 oz pur e alcohol) Socially [facility] Utilities Answer Date Recorded [...] in the past 12 m [facility], were you homeless or living in a [...] the past 12 months has th e [employer], gas, oil, or water [facility] threatened to shut off services in your [...] - Temperature - - Respiratory Rate 16 07/05/2024 0624 EDT Oxygen Saturation - - Inhaled Oxygen Concentration - - Weight 81.2 kg (179 lb 0.2 oz) 07/05/2024 0626 E DT Height - - Body Mass Index 25.69 12/20/2023 2202 EST documented in this encounter [...] Flowsheet Note - Marcela Cox RN - 07/05/2024 1417 EDT 07/05/24 1058 Post-Hemodialysis Assessment Total Blood Processed (L) 90.81 Liters On Line Clearance: spKt/V 1.44 spKt/V Dialyzer Clearance Lightly streaked Treatment UFR (ml:kg:hr) 14.39 ml:kg:hr Final Critline Profile (%/hr) -1.56 Final Profile Profile A Critline refill Positive (H1: 36.7 H2: 36.1) Fluid Removed (L) 5 L Post-Dialysis Scale Weight 95.4 kg (210 lb 5.1 oz) Wheelchair Weight 19 kg (41 lb 14.2 oz) Prosthesis Weight 0 kg (0 lb) Post-Treatment Weight (kg) 76.4 Treatment Weight Change (kg) 4.8 kg Day Target Weight (kg) 76.7 Post Sitting/Lying BP 125/80 Post Sitting/Lying pulse 63 Temp 36.8 ??C (98.2 ??F) Minutes Short -262 Post access assessment Bruit present: Yes Thrill Present AVF/AFG Hemostasis achieved Yes Note Patient held for 10mins with blue clamps without any rebleeding- PT did remove arterial needleright at end of treatment due to his excessive movement-Rn aware Orientation Alert and Oriented x3 Yes Time Yes Place Yes Person Yes Cooperative Yes Disoriented No Discharge Ambulation Methods With patient transport Wrap up items Patient Response to Treatment Tolerated tx well. Removed 5L UF goal without difficulty. ( made aware of goal and UFR) Comments No issues during tx, no concerns voiced post tx. documented in this encounter Plan of Treatment Upcoming Encounters Date Type Department Care Team (Late st Contact Info) Description 12/06/2024 6:45 EST Treatment [facility] [place] [address] [place], [place] [phone] Calrota Jin MD [address] [place] [phone] 12/08/2024 6:45 EST [facility] [address] [place], [place] [phone] Carlota Jin MD [address] [place] [phone] 12/11/2024 6:45 EST [facility] [address] [place], [place] [phone] Carlota Jin MD [address] [place] [phone] 12/13/2024 6:45 EST Treatment [facility] [address] [place], [place] [phone] Carlota Jin MD [address] [place] [phone] 12/15/2024 6:45 EST Treatment [facility] [address] [place], [place] [phone] Carlota Jin MD 1 [facility], [facility] [address] [place] [phone] 12/18/2024 6:45 EST Treatment [facility] [place] [address] [place], [place] [phone] Carlota Jin MD 1 [facility], [facility] [address] [place] [phone] 12/20/2024 6:45 EST Treatment [facility] [place] [address] [place], [place] [phone] Carlota Jin MD 1 [facility], [facility] [address] [place] [phone] 12/22/2024 6:45 EST Treatment [facility] [place] [address] [place], [place] [phone] Carlota Jin MD 1 [facility], [facility] [address] [place] [phone] 12/25/2024 6:45 EST Treatment [facility] [address] [place], [place] [phone] Carlota Jin MD 1 [facility], [facility] [address] [place] [phone] 12/27/2024 6:45 EST Treatment [facility] [place] [address] [place], [place] [phone] Carlota Jin MD 1 [facility], [facility] [address] [place] [phone] 12/29/2024 6:45 EST Treatment [facility] [place] [address] [place], [place] [phone] Carlota Jin MD 1 [facility], [facility] [address] [place] [phone] 01/01/2025 6:45 EDT Treatment [facility] [place] [address] [place], [place] [phone] Carlota Jin MD 1 [facility], [facility] [address] [place] [phone] 01/03/2025 6:45 EDT Treatment [facility] [place] [address] [place] [address] Carlota Jin MD 1 [facility], [address] [phone] 01/05/2025 6:45 EDT Treatment [facility] [place] [address] [place], [place] [phone] Carlota Jin MD 1 [facility], [facility] [address] [place] [phone] 01/08/2025 6:45 EDT Treatment [facility] [place] [address] [place], [place] [phone] Carlota Jin MD 1 [facility], [facility] [address] [place] [phone] 01/10/2025 6:45 EDT Treatment [facility] [place] [address] [place], [place] [phone] Carlota Jin MD 1 [facility], [facility] [address] [place] [phone] 01/12/2025 6:45 EDT Treatment [facility] [place] [address] [place] [address] Carlota Jin MD 1 [facility], [facility] [address] [place] [phone] 01/15/2025 6:45 EDT Treatment [facility] [place] [address] [place] [address] Carlota Jin MD 1 [facility], [facility] [address] [place] [phone] 01/17/2025 6:45 EDT Treatment [facility] [place] [address] [place], [place] [phone] Carlota Jin MD 1 [facility], [facility] [address] [place] [phone] 01/19/2025 6:45 EDT Treatment [facility] [place] [address] [place] [address] Carlota Jin MD 1 [facility], [facility] [address] [place] [phone] 01/22/2025 6:45 EDT Treatment [facility] [place] [address] [place], [place] [phone] Carlota Jin MD 1 [facility], [facility] [address] [place] [phone] 01/24/2025 6:45 EDT Treatment [facility] [place] [address] [place], [place] [phone] Carlota Jin MD 1 [facility], [facility] [address] [place] [phone] 01/26/2025 6:45 EDT Treatment [facility] [place] [address] [place], [place] [phone] Carlota Jin MD 1 [facility], [facility] [address] [place] [phone] 01/29/2025 6:45 EDT Treatment [facility] [address] [place], [place] [phone] Carlota Jin MD 1 [facility], [facility] [address] [place] [phone] 01/31/2025 6:45 EDT Treatment [facility] [address] [place], [place] [address] Carlota Jin MD 1 [facility], [facility] [address] [place] [phone] 02/02/2025 6:45 EDT Treatment [facility] [address] [place], [place] [phone] Carlota Jin MD 1 [facility], [facility] [address] [place] [phone] 02/05/2025 6:45 EDT Treatment [facility] [place] [address] [place], [place] [phone] Carlota Jin MD 1 [facility], [facility] [address] [place] [phone] 02/07/2025 6:45 EDT Treatment [facility] [place] [address] [place], [place] [phone] Carlota Jin MD 1 [facility], [address] [phone] 02/09/2025 6:45 EDT Treatment [facility] [place] [address] [place], [place] [phone] Carlota iJn MD 1 [facility], [address] [phone] 02/12/2025 6:45 EDT Treatment [facility] [place] [address] [place], [place] [phone] Carlota Jin MD [address] [phone] 02/14/2025 6:45 EDT Treatment [facility] [place] [address] [place], [place] [phone] Carlota Jin MD [address] [phone] 02/16/2025 6:45 EDT Treatment [facility] [place] [address] [place], [place] [phone] Carlota Jin MD 1 [facility], [facility] [address] [place] [phone] 02/19/2025 6:45 EDT Treatment [facility] [place] [address] [place], [place] [phone] Carlota Jin MD 1 [facility], [facility] [address] [place] [phone] 02/21/2025 6:45 EDT Treatment [facility] [place] [address] [place] [address] Carlota Jin MD 1 [facility], [facility] [address] [place] [phone] documented as of this encounter Procedures Procedure Name Priority Date/Time Associated Diagnosis Comments COMPLETE BLOOD COUNT Routine 07/05/2024 6:38 EDT ESRD (end stage renal disease) ([facility]) HEMODIALYSIS Routine 07/05/2024 6:24 EDT ESRD (end stage renal disease) ([facility]) documented in this encounter Results * (ABNORMAL) COMPLETE BLOOD COUNT (07/05/2024 6:38 EDT) WBC 8.09 4.00 - 10.40 K/cmm 07/05/2024 22:06 [facility] RBC 4.50 4.36 - 5.78 M/cmm 07/05/2024 22:06 [facility] Hemoglobin 12.2(L) 13.8 - 17.3 g/dL 07/05/2024 22:06 [facility] HCT 39.4(L) 39.5 - 50.2 % 07/05/2024 22:06 [facility] MCV 88 81 - 95 fL 07/05/2024 22:06 [facility] MCH 27.1(L) 27.6 - 33.0 pg 07/05/2024 22:06 EDT [facility] MCHC 31.0(L) 32.8 - 36.4 g/dL 07/05/2024 22:06 EDT [facility] RDW-CV 18.7(H) <14.2 % 07/05/2024 22:06 EDT [facility] RDW-SD 59.8(H) <46.0 fl 07/05/2024 22:06 EDT [facility] PLT 214 141 - 377 K/cmm 07/05/2024 22:06 T [facility] MPV 12.8(H) 9.5 - 12.7 fL 07/05/2024 22:06 T [facility] Blood VENOUS BLOOD / Unknown Venipuncture / Unknown 07/05/2024 6:38 EDT 07/05/2024 6:38 EDT Skye Gomez EMPLOYEE RELATION MANAGER HEMATOLOGY & PF4 ORDERABLES Final Result [facility] [address] [place] [address] documented in this encounter Visit Diagnoses Diagnosis ESRD (end stage renal disease) ([facility] Primary End stage renal disease Hypoalbuminemia Other disorders of plasma protein metabolism Secondary hyperparathyroidism ([facility]) Secondary hyperparathyroidism (of renal origin) documented in this encounter Administered Medications Inactive Administered Medications - up to 3 most recent administrations Medication Order MAR Action Action Date Dose Rate Site calcium carbonate (TUMS) tablet 500 mg (200 mg elemental calcium) 2 Tablet 2 Tablet, oral, ONCE IN DIALYSIS, 1 dose, On Wed07/05/24 at 0645, Routine, DialysisIndications:ESRD (end stage renal disease) ([facility]),Secondary hyperparathyroidism ([facility]) Given 07/05/2024 6:36 EDT 2 Tablets heparin injection 5,000 Units 5,000 Units, intravenous, ONCE IN DIALYSIS, 1 dose, On Wed07/05/24 at 0645, Routine, Dialysis, Now x1 bolus 2600 units to be given at the beginning of dialysis 800 units/hour to be given over the course of dialysis (5000 units total). Stop 1 hour prior to end of treatment. To be administered per Policy [id number].Indications:ESRD (end stage renal disease) ([facility]) Given 07/05/2024 6:45 EDT 5,000 Units LiquaCel liquid protein liquid 30 mL 30 mL, oral, ONCE IN DIALYSIS, 1 dose, On Wed07/05/24 at 0645, Patient's flavor preference: either, RoutineIndications:ESRD (end stage renal disease) ([facility]),Hypoalbuminemia Given 07/05/2024 6:36 EDT 30 mL documented in this encounter Orders Dialysis Count Last Ordered Date First Orde red Date HEMODIALYSIS 1 07/05/2024 documented in this encounter Care Teams Heavy Equipment Engine Mechanic Relationship Specialty Start Date End Date Ken Greer MD [address] [place] [address] PCP - General 07/07/23 Kiel Powers Info Analyst Nephrology 05/31/24 documented as of this encounter
--- OUTSIDE RECORDS SUMMARY | 2024-12-05 12:01 | XMS_ITS | Encounter Summary ---
Author Organization [facility] Address [address] [place] [address] Care Team Providers Care Medicaid Biller Name Role Phone Ken Greer MD Primary Care Provider [phone] Kiel Powers Unavailable Unavailable Encounter Details Date Type Department Care Team (Late st Contact Info) Description 06/21/2024 Documentation Visit [facility] [address] [place] [address] Shelley Eden, RD [address] [place] [address] Social History Tobacco Use Types Packs/Day Years Used Date Smoking Tobacco: Every Day Cigarettes 1 26.1 Started: 1998 Smokeless Tobacco: Never Alcohol Use Standard Drinks/Week Comments Yes 0 (1 standard drink = 0.6 oz pur e alcohol) Socially [facility] Utilities Answer Date Recorded In the past 12 months has e [employer], gas, oil, or water [employer] threatened to shut off services in your [...] the past 12 months has th e [employer], gas, oil, or water [employer] threatened to shut off services in your [...] Progress Notes * Shelley Eden, RD - 06/21/2024 1440 EDT Dialysis Dietitian's Monthly Assessment Met with patient on phone call with 06/21/24 Family/caregivers or others present: lives with his Information obtained from: patient Recent Hospitalizations: 03/13-03/14/24 COVID , 02/18/24-02/25/24 BKA, 11/07-10/31/23 COVID and diabetic foot infection 02/20 BKA Left 04/25/24 Right BKA Subjective: Spoke with Dans today . PT was not present during RD visit this month. Hoda reports that Mukesh wounds have healed up very well and they are supposed to start working toward prostheticfitting. Hoda was concerned with lower O2 sats she said she did not realize if he drank too much itwould affect his breathing- we discussed fluid management and tips to help - encouraged measuring and to avoid high Na foods . Appetite: Good Appetite scale (0-10): No number given Gastrointestinal: Some recent N/V Skin integrity: S/p amputations - now all healed Diabetes: Yes all over 90-400 recently Diabetes Management: Self Monitoring of Blood Glucose on insulin but does not check Diet Recall: B eggs and toast L lobster bisque soup D chix pasta and red sauce with peppers mushrooms Fluid: Water, Coffee, Milk, Juice Alcohol: will need to f/u Prescribed Weight:75.5 Post-Dialytic Weight: 76.3 06/12/2024 10:40 06/14/2024 10:40 06/16/2024 10:38 06/19/2024 10:42 06/21/2024 10:43 - ( Kg ) 75.6 75.3 75.4 76.5 76.3 UFR: 06/12/2024 10:40 06/14/2024 10:40 06/16/2024 10:38 06/19/2024 10:42 06/21/2024 10:43 - mL/Kg/hr 13.23 ml:kg:hr 12.79 ml:kg:hr 11.56 ml:kg:hr 14.52 ml:kg:hr 12.73 ml:kg:hr URR: 70 (Calculated from:; BUN Pre-Dialysis: 40 mg/dL at 06/02/2024 11:01; BUN Post-Dialysis: 12 mg/dL at 06/02/2024 11:01) Kt/V: 1.48 (Calculated from:; BUN Pre-Dialysis: 40 mg/dL at 06/02/2024 11:01; BUN Post-Dialysis: 12 mg/dL at 06/02/2024 11:01; Pre-Treatment Weight (kg): 79.3 at 06/02/2024 6:26; Post-Treatment Weight (kg): 75.3 at 06/02/2024 10:45; Duration of Treatment (minutes): 244 minutes at 06/02/2024 10:45) PCR: 0.79 (Calculated from:; BUN Pre-Dialysis: 40 mg/dL at 06/02/2024 11:01; BUN Post-Dialysis: 12 mg/dL at 06/02/2024 11:01; Pre-Treatment Weight (kg): 79.3 at 06/02/2024 6:26; Post-Treatment Weight (kg):75.3 at 06/02/2024 10:45; Duration of Treatment (minutes): 244 minutes at 06/02/2024 10:45; Age: 58 years) Pertinent Labs include: Lab Results Component Value Date LABALBU 2.9 (L) 06/02/2024 LABALBU 3.0 (L) 05/01/2024 Lab Results Component Value Date BUNPRE 40 (H) 06/02/2024 BUNPRE 40 (H) 06/02/2024 NA 140 06/02/2024 NA 135 (L) 05/31/2024 K 5.1 (H) 06/02/2024 K 5.0 05/31/2024 CL 100 06/02/2024 CL 96 05/31/2024 CO2 24 06/02/2024 CO2 25 05/31/2024 MG 1.9 06/02/2024 MG 2.5 05/01/2024 CALCIUM 8.3 (L) 06/02/2024 CALCIUM 8.9 05/31/2024 CALCCA 9.2 06/02/2024 CALCCA 9.9 05/01/2024 PHOS 6.5 (H) 06/02/2024 PHOS 6.6 (H) 05/30/2024 ALKPHOS 118 06/02/2024 ALKPHOS 134 (H) 05/01/2024 PTH 250 (H) 05/01/2024 PTH 329 (H) 01/24/2024 PLT 247 06/14/2024 PLT 276 06/07/2024 MCV 86 06/14/2024 MCV 88 06/07/2024 [id number] 607 10/27/2023 [id number] 688 11/16/2022 VITD 21 (L) 10/27/2023 VITD 27 (L) 11/16/2022 FOLATE >24.0 10/27/2023 FOLATE 17.3 11/16/2022 HGBA1C 11.6 (H) 11/07/2023 Protein/calorie supplements: liqaucel on HD days protein powder at home (orgain)- recmd to restart Renal/other vitamins: cholecalciferol (Vitamin D3) - 2000 IU daily said he ran out of vitamin she is looking to get new one Herbal/OTC supplements: None reported CKD/MBD medications: sevelamer hydrochloride - 2 with meals - has been encouraging him to take - may need to increase dose 2 tums at HD Other Medications Relevant to Nutrition: atorvastatin - 40 mg sevelamer carbonate - 800 mg insulin aspart U-100 - 100 unit/mL (3 mL) insulin glargine - 100 unit/mL (3 mL) insulin lispro - 100 unit/mL Assessment Nutrition status / Adequacy of intake: Xander has had a decline in his po intake - encouraged increaseintake of protein and use of protein powder - albumin remains low since recent amputations. Will cont liquacel at HD. . Wt has declined about 10 kg in the past 7 months r/t recent amputations . At his current wt his BMI is 28 adjusted for amps Weight/Volume status: fluid gains running higher 3.7-5.6 UFR 12-14 Electrolytes: K- WNL Na -WNL Mg WNL Mineral Bone Disease: Ca WNL Phos high - on 2 tums at HD, reinforced renvela at meals consider increase in renvela dose PTH WNL - no calcitriol Vitamin Status: B12 and folate WNL needs to start renal vitamin - discussed with D25 level low -on 2000 IU D3 Diabetes management: on insulin but not checking regularly Education Materials provided: Nutrition Lab Report-given monthly [...] monthly - Encourage consistency with binders - consider increase in renvela Cont liquacel at HD restart protein powder at home -reinforced high protein needs Cont vitamin D3, start renal vitamin 4. Revd fluid management tips and encouraged to avoid salt Shelley Eden RD, CD documented in this encounter Plan of Treatment Upcoming Encounters Date Type Department Care Team (Late st Contact Info) Description 12/06/2024 6:45 EST Treatment [facility] [place] [address] [place], [place] [phone] Carlota Jin MD [address] [phone] 12/08/2024 6:45 EST Treatment [facility] [address] [place], [place] [phone] Carlota Jin MD [address] [phone] 12/11/2024 6:45 EST Treatment [facility] [place] [address] [place], [place] [phone] Carlota Jin MD [address] [phone] 12/13/2024 6:45 EST Treatment [facility] [address] [place], [place] [phone] Carlota Jin MD [address] [phone] 12/15/2024 6:45 EST Treatment [facility] [address] [place], [place] [phone] Carlota Jin MD [address] [phone] 12/18/2024 6:45 EST Treatment [facility] [place] [address] [place], [place] [phone] Carlota Jin MD 1 [facility], [address] [place] [phone] 12/20/2024 6:45 EST Treatment [facility] [place] [address] [place] [address] Carlota Jin MD 1 [facility], [facility] [address] [place] [phone] 12/22/2024 6:45 EST Treatment [facility] [place] [address] [place] [address] Carlota Jin MD 1 [facility], [facility] [address] [place] [phone] 12/25/2024 6:45 EST Treatment [facility] [place] [address] [place] [address] Carlota Jin MD 1 [facility], [facility] [address] [place] [phone] 12/27/2024 6:45 EST Treatment [facility] [place] [address] [place], [place] [phone] Carlota Jin MD 1 [facility], [address] [place] [phone] 12/29/2024 6:45 EST Treatment [facility] [place] [address] [place], [place] [id number] Carlota Jin MD 1 [facility], [address] [phone] 01/01/2025 6:45 EDT Treatment [facility] [place] [address] [place], [place] [address] [phone] Carlota Jin MD 1 [facility], [address] [phone] 01/03/2025 6:45 EDT Treatment [facility] [place] [address] [place], [place] [phone] Carlota Jin MD 1 [facility], [address] [phone] 01/05/2025 6:45 EDT Treatment [facility] [place] [address] [place] [address] Carlota Jin MD 1 [facility], [address] [phone] 01/08/2025 6:45 EDT Treatment [facility] [place] [address] [place], [place] [phone] Carlota Jin MD [address] [phone] 01/10/2025 6:45 EDT Treatment [facility] [place] [address] [place], [place] [id number] Carlota Jin MD 1 [facility], [address] [phone] 01/12/2025 6:45 EDT Treatment [facility] [place] [address] [place], [place] [phone] Carlota Jin MD 1 [facility], [facility] [address] [place] [phone] 01/15/2025 6:45 EDT Treatment [facility] [place] [address] [place], [place] [phone] Carlota Jin MD 1 [facility], [address] [phone] 01/17/2025 6:45 EDT Treatment [facility] [place] [address] [place], [place] [phone] Carlota Jin MD 1 [facility], [facility] [address] [place] [phone] 01/19/2025 6:45 EDT Treatment [facility] [place] [address] [place], [place] [phone] Carlota Jin MD 1 [facility], [facility] [address] [place] [phone] 01/22/2025 6:45 EDT Treatment [facility] [place] [address] [place], [place] [phone] Carlota Jin MD 1 [facility], [facility] [address] [place] [phone] 01/24/2025 6:45 EDT Treatment [facility] [place] [address] [place], [place] [phone] Carlota Jin MD 1 [facility], [facility] [address] [place] [phone] 01/26/2025 6:45 EDT Treatment [facility] [place] [address] [place], [place] [phone] Carlota Jin MD 1 [facility], [address] [phone] 01/29/2025 6:45 EDT Treatment [facility] [place] [address] [place], [place] [phone] Carlota Jin MD 1 [facility], [address] [phone] 01/31/2025 6:45 EDT Treatment [facility] [place] [address] [place], [place] [phone] Carlota Jin MD 1 [facility], [address] [phone] 02/02/2025 6:45 EDT Treatment [facility] [place] [address] [place], [place] [id number] Carlota Jin MD 1 [facility], [facility] [address] [place] [phone] 02/05/2025 6:45 EDT Treatment [facility] [place] [address] [place], [place] [phone] Carlota Jin MD 1 [facility], [facility] [address] [place] [phone] 02/07/2025 6:45 EDT Treatment [facility] [place] [address] [place], [place] [id number] Carlota Jin MD 1 [facility], [facility] [address] [place] [phone] 02/09/2025 6:45 EDT Treatment [facility] [place] [address] [place], [place] [phone] Carlota Jin MD 1 [facility], [facility] [address] [place] [phone] 02/12/2025 6:45 EDT Treatment [facility] [place] [address] [place], [place] [address] Carlota Jin MD 1 [facility], [facility] [address] [place] [phone] 02/14/2025 6:45 EDT Treatment [facility] [place] [address] [place] [address] Carlota Jin MD 1 [facility], [facility] [address] [place] [phone] 02/16/2025 6:45 EDT Treatment [facility] [place] [address] [place], [place] [id number] Carlota Jin MD 1 [facility], [facility] [address] [place] [phone] 02/19/2025 6:45 EDT Treatment [facility] [place] [address] [place], [place] [phone] Carlota Jin MD 1 [facility], [facility] [address] [place] [phone] 02/21/2025 6:45 EDT Treatment [facility] [place] [address] [place], [place] [phone] Carlota Jin MD [address] [place] [address], [facility] [address] [place] [phone] documented as of this encounter Visit Diagnoses Not on filedocumented in this encounter Care Teams Medicaid Biller Relationship Specialty Start Date End Date Ken Greer MD [employer] [place] [address] PCP - General 07/07/23 Kiel Powers Contract Post Office Clerk Nephrology 05/31/24 documented as of this encounter
--- OUTSIDE RECORDS SUMMARY | 2024-12-05 12:01 | XMS_ITS | Encounter Summary ---
Author Organization [facility] [place] Address [address] [place] [address] Care Team Providers Care Orthopedic Shoe Maker Name Role Phone Ken Greer MD Primary Care Provider [phone] Kiel Powers Unavailable Unavailable Reason for Visit * Episode Based Medications (Routine) - New Request Specialty Diagnoses / Procedures Referred By Nader gardiner Referred To Contact Diagnoses ESRD (end stage renal disease) ([facility]) Carlota Jin MD [address] [place] [address] [address] [place] [address] Phone: tel: fax: [facility] - [place] [address] [place] [address] Phone: tel: fax: Referral ID Status Reason Start Date Expiration Date V isits Requested Visits Authorized [id number] New Request 03/17/2024 1 1 Encounter Details Date Type Department Care Team (Latest Contact Info) Description 07/03/2024 6:45 EDT Treatment [facility] [address] [place], [place] [phone] Carlota Jin MD [address] [place] [address], [facility] [address] [place] [address] ESRD (end stage renal disease) ([facility]) (Primary Dx); Hypoalbuminemia; Secondary hyperparathyroidism ([facility]) Social History Tobacco Use Types Packs/Day Years Used Date Smoking Tobacco: Every Day Cigarettes 1 26.1 Started: 1998 Smokeless Tobacco: Never Alcohol Use Standard Drinks/Week Comments Yes 0 (1 standard drink = 0.6 oz pur e alcohol) Socially [facility] Utilities Answer Date Recorded In the past [...] No 05/30/2024 Housing Stability Vital Sign Answer Lno e Recorded In the last 12 months, was t here a time when you were not able to pay the mortgage or rent on time? No 05/30/2024 In the past 12 months, how m any times have you moved where you were living? 1 05/30/2024 At any time in the past [address] [facility], were you homeless or living [...] the past 12 months has th e [employer], gas, oil, or water [employer] threatened to shut off services in your [...] - Temperature - - Respiratory Rate 16 07/03/2024 0624 EDT Oxygen Saturation - - Inhaled Oxygen Concentration - - Weight 81.2 kg (179 lb 0.2 oz) 07/03/2024 0625 E DT Height - - Body [...] encounter Miscellaneous Notes * Flowsheet Note - Keila Vizcarra RN - 07/03/2024 1521 EDT 07/03/24 1049 Post-Hemodialysis Assessment Total Blood Processed (L) 89.75 Liters On Line Clearance: spKt/V 1.48 spKt/V Dialyzer Clearance Lightly streaked Treatment UFR (ml:kg:hr) 14.75 ml:kg:hr Final Critline Profile (%/hr) -2.59 Final Profile Profile A Critline refill Positive (37.9/37.3; as expected, this patient has more fluid on to be removed.) Fluid Removed (L) 4.8 L Post-Dialysis Scale Weight 95.5 kg (210 lb 8.6 oz) Wheelchair Weight 19 kg (41 lb 14.2 oz) Prosthesis Weight 0 kg (0 lb) Post-Treatment Weight (kg) 76.5 Treatment Weight Change (kg) 4.7 kg Day Target Weight (kg) 76.9 Post Sitting/Lying BP 167/88 Post Sitting/Lying pulse 65 Temp 36.2 ??C (97.2 ??F) Temp src Temporal Minutes Short -250 Post access assessment AVF/AFG Hemostasis achieved Yes Note pt held with blue clamps for 10 minutes - no rebleed Orientation Alert and Oriented x3 Yes Time Yes Place Yes Person Yes Cooperative Yes Disoriented No Discharge Ambulation Methods Departs via w/c Wrap up items Patient Response to Treatment Tolerated treatment well. Removed 4800 mL UF goal without difficulty.Pt even went out 0.5kg ecd than expected. Stable at time of DC from unit. Comments No concerns post treatment. documented in this encounter Plan of Treatment Upcoming Encounters Date Type Department Care Team (Late st Contact Info) Description 12/06/2024 6:45 EST Treatment [facility] - [place] [address] [place], [place] [phone] Carlota Jin MD [address] [place] [phone] 12/08/2024 6:45 EST Treatment [facility] [place] [address] [place], [place] [phone] Carlota Jin MD [address] [place] [phone] 12/11/2024 6:45 EST Treatment [facility] [address] [place], [place] [phone] Carlota Jin MD [address] [place] [phone] 12/13/2024 6:45 EST Treatment [facility] [place] [address] [place], [place] [phone] Carlota Jin MD [address] [place] [phone] 12/15/2024 6:45 EST Treatment [facility] [address] [place], [place] [phone] Carlota Jin MD 1 [facility], [facility] [address] [place] [phone] 12/18/2024 6:45 EST Treatment [facility] - [place] [address] [place], [place] [phone] Carlota Jin MD 1 [facility], [facility] [address] [place] [phone] 12/20/2024 6:45 EST Treatment [facility] - [place] [address] [place], [place] [phone] Carlota Jin MD 1 [facility], [facility] [address] [place] [phone] 12/22/2024 6:45 EST Treatment [facility] - [place] [address] [place], [place] [phone] Carlota Jin MD 1 [facility], [facility] [address] [place] [phone] 12/25/2024 6:45 EST Treatment [facility] - [place] [address] [place], [place] [phone] Carlota Jin MD 1 [facility], [facility] [address] [place] [phone] 12/27/2024 6:45 EST Treatment [facility] - [place] [address] [place], [place] [phone] Carlota Jin MD 1 [facility], [facility] [address] [place] [phone] 12/29/2024 6:45 EST Treatment [facility] - [place] [address] [place], [place] [phone] Carlota Jin MD 1 [facility], [facility] [address] [place] [phone] 01/01/2025 6:45 EDT Treatment [facility] - [place] [address] [place], [place] [phone] Carlota Jin MD 1 [facility], [facility] [address] [place] [phone] 01/03/2025 6:45 EDT Treatment [facility] - [place] [address] [place], [place] [phone] Carlota Jin MD [address] [place] [address], [facility] [address] [place] [phone] 01/05/2025 6:45 EDT Treatment [facility]ys[facility] - [place] [address] [place], [place] [phone] Carlota Jin MD 1 [facility], [facility] [address] [place] [phone] 01/08/2025 6:45 EDT Treatment [facility] - [place] [address] [place], [place] [phone] Carlota Jin MD 1 [facility], [facility] [address] [place] [phone] 01/10/2025 6:45 EDT Treatment [facility] - [place] [address] [place], [place] [phone] Carlota Jin MD 1 [facility], [facility] [address] [place] [phone] 01/12/2025 6:45 EDT Treatment [facility] - [place] [address] [place], [place] [phone] Carlota Jin MD 1 [facility], [facility] [address] [place] [phone] 01/15/2025 6:45 EDT Treatment [facility] - [place] [address] [place] [address] Carlota Jin MD 1 [facility], [address] [phone] 01/17/2025 6:45 EDT Treatment [facility] - [place] [address] [place], [place] [phone] Carlota Jin MD 1 [facility], [address] [phone] 01/19/2025 6:45 EDT Treatment [facility] - [place] [address] [place] [address] Carlota Jin MD 1 [facility], [facility] [address] [place] [phone] 01/22/2025 6:45 EDT Treatment [facility] D[facility] - [place] [address] [place], [place] [phone] Carlota Jin MD 1 [facility], [facility] [address] [place] [phone] 01/24/2025 6:45 EDT Treatment [facility] Dialysi - [place] [address] [place], [place] [address] Carlota Jin MD 1 [facility], [facility] [address] [place] [phone] 01/26/2025 6:45 EDT Treatment [facility] Dialysi - [place] [address] [place], [place] [phone] Carlota Jin MD 1 [facility], [facility] [address] [place] [phone] 01/29/2025 6:45 EDT Treatment [facility] Dialysi - [place] [address] [place], [place] [address] Carlota Jin MD 1 [facility], [facility] [address] [place] [phone] 01/31/2025 6:45 EDT Treatment [facility] - [place] [address] [place], [place] [phone] Carlota Jin MD 1 [facility], [facility] [address] [place] [phone] 02/02/2025 6:45 EDT Treatment [facility] - [place] [address] [place], [place] [phone] Carlota Jin MD 1 [facility], [facility] [address] [place] [phone] 02/05/2025 6:45 EDT Treatment [facility] Dialysi - [place] [address] [place], [place] [address] Carlota Jin MD 1 [facility], [address] [phone] 02/07/2025 6:45 EDT Treatment [facility] Dialysi - [place] [address] [place], [place] [address] [phone] Carlota Jin MD 1 [facility], [address] [phone] 02/09/2025 6:45 EDT Treatment [facility] Dialysi - [place] [address] [place], [place] [address] Carlota Jin MD 1 [facility], [address] [phone] 02/12/2025 6:45 EDT Treatment [facility] Dialysi - [place] [address] [place] [address] Carlota Jin MD 1 [facility], [address] [phone] 02/14/2025 6:45 EDT Treatment [facility] Dialysi - [place] [address] [place], [place] [phone] Carlota Jin MD [address] [phone] 02/16/2025 6:45 EDT Treatment [facility] Dialysi - [place] [address] [place], [place] [phone] Carlota Jin MD 1 [facility], [address] [phone] 02/19/2025 6:45 EDT Treatment [facility] - [place] [address] [place] [address] Carlota Jin MD 1 [facility], [facility] [address] [place] [phone] 02/21/2025 6:45 EDT Treatment [facility] D[facility]ysi - [place] [address] [place] [address] Carlota Jin MD 1 [facility], [address] [phone] documented as of this encounter Procedures Procedure Name Priority Date/Time Associated Diagnosis Comments HEMODIALYSIS Routine 07/03/2024 6:24 EDT ESRD (end stage renal disease) ([facility]) documented in this encounter Visit Diagnoses Diagnosis ESRD (end stage renal disease) ([facility])- Primary End stage renal disease Hypoalbuminemia Other disorders of plasma protein metabolism Secondary hyperparathyroidism ([facility]) Secondary hyperparathyroidism (of renal origin) documented in this encounter Administered Medications Inactive Administered Medications - up to 3 most recent administrations Medication Order MAR Action Action Date Dose Rate Site calcium carbonate (TUMS) tablet 500 mg (200 mg elemental calcium) 2 Tablet 2 Tablet, oral, ONCE IN DIALYSIS, 1 dose, On Wed07/03/24 at 0645, Routine, DialysisIndications:ESRD (end stage renal disease) ([facility]),Secondary hyperparathyroidism ([facility]) Given 07/03/2024 6:53 EDT 2 Tablets heparin injection 5,000 Units 5,000 Units, intravenous, ONCE IN DIALYSIS, 1 dose, On Wed07/03/24 at 0645, Routine, Dialysis, Now x1 bolus 2600 units to be given at the beginning of dialysis 800 units/hour to be given over the course of dialysis (5000 units total). Stop 1 hour prior to end of treatment. To be administered per Policy [id number].Indications:ESRD (end stage renal disease) ([facility]) Given 07/03/2024 6:53 EDT 5,000 Units iron sucrose (VENOFER) injection 200 mg 200 mg, intravenous, ONCE IN DIALYSIS, 1 dose, On Wed07/03/24 at 0645, Routine, DialysisIndications:ESRD (end stage renal disease) ([facility]) Given 07/03/2024 6:53 EDT 200 mg LiquaCel liquid protein liquid 30 mL 30 mL, oral, ONCE IN DIALYSIS, 1 dose, On Wed07/03/24 at 0645, Patient's flavor preference: either, RoutineIndications:ESRD (end stage renal disease) ([facility]),Hypoalbuminemia Given 07/03/2024 6:53 EDT 30 mL documented in this encounter Orders Dialysis Count Last Ordered Date First Orde red Date HEMODIALYSIS 1 07/03/2024 documented in this encounter Care Teams Orthopedic Shoe Maker Relationship Specialty Start Date End Date Ken Greer MD [address] [place] [address] PCP - General 07/07/23 Kiel Powers Behaviorist Nephrology 05/31/24 documented as of this encounter
--- OUTSIDE RECORDS SUMMARY | 2024-12-05 12:01 | XMS_ITS | Encounter Summary ---
Author Organization [facility] Address [address] [place] [address] Care Team Providers Care Driftman Name Role Phone Ken Greer MD Primary Care Provider [phone] Kiel Powers Unavailable Unavailable Reason for Visit * Episode Based Medications (Routine) - New Request Specialty Diagnoses / Procedures Referred By Nader gardiner Referred To Contact Diagnoses ESRD (end stage renal disease) ([facility]) Carlota Jin MD [address] [place] [address] [address] [place] [address] Phone: tel: fax: [facility] [address] [place] [address] Phone: tel: fax: Referral ID Status Reason Start Date Expiration Date V isits Requested Visits Authorized [id number] New Request 03/17/2024 1 1 Encounter Details Date Type Department Care Team (Latest Contact Info) Description 06/28/2024 6:45 EDT Treatment [facility] [address] [place], [place] [id number] Carlota Jin MD [address] [place] [address], [facility] [address] [place] [address] ESRD (end stage renal disease) ([facility]) (Primary Dx); Anemia of chronic renal failure, unspecified CKD stage; Hypoalbuminemia; Secondary hyperparathyroidism ([facility]) Social History Tobacco Use Types Packs/Day Years Used Date Smoking Tobacco: Every Day Cigarettes 1 26.1 Started: 1998 Smokeless Tobacco: Never Alcohol Use Standard Drinks/Week Comments Yes 0 (1 standard drink = 0.6 oz pur e alcohol) Socially [facility] Utilities Answer Date Recorded In the [...] your living situation today? I have a [facility] place to live 05/30/2024 Think about [...] In the past 12 months has th [employer], gas, oil, or water [employer] threatened to shut off services in your [...] - Temperature - - Respiratory Rate 18 06/28/2024 0621 EDT Oxygen Saturation - - Inhaled Oxygen Concentration - - Weight 82.3 kg (181 lb 7 oz) 06/28/2024 0625 EDT Height - - Body Mass Index 26.03 12/20/2023 2202 EST documented in this encounter [...] Flowsheet Note - Keila Vizcarra RN - 06/28/2024 1352 EDT 06/28/24 1147 Post-Hemodialysis Assessment Total Blood Processed (L) 89.59 Liters On Line Clearance: spKt/V 1.82 spKt/V Dialyzer Clearance Lightly streaked Treatment UFR (ml:kg:hr) 18.23 ml:kg:hr Final Critline Profile (%/hr) -2.57 Final Profile Profile A Critline refill Not done (Given that the patient had no symptoms during treatment and profile A, I would assume that the patient has more fluid on to remove.) Fluid Removed (L) 7.3 L Post-Dialysis Scale Weight 94.4 kg (208 lb 1.8 oz) Wheelchair Weight 19.1 kg (42 lb 1.7 oz) Prosthesis Weight 0 kg (0 lb) Post-Treatment Weight (kg) 75.3 Treatment Weight Change (kg) 7 kg Day Target Weight (kg) 75.5 Post Sitting/Lying BP 165/84 Post Sitting/Lying pulse 64 Temp 36.1 ??C (97 ??F) Temp src Temporal Minutes Short -306 Post access assessment Bruit present: Yes Thrill Present AVF/AFG Hemostasis achieved Yes Note RN held his sites for 10+mins due to heavy bleeding Orientation Alert and Oriented x3 Yes Time Yes Place Yes Person Yes Cooperative Yes Disoriented No Discharge Ambulation Methods With patient transport;Departs via w/c Wrap up items Patient Response to Treatment Tolerated treatment well. Removed 3000 mL in first hour IUF and 4300 mL in 4 hours of HD treatment without difficulty. Stable at time of DC from unit. Comments No issues during treatment. Requested Tylenol prior to DC for headache. Tylenol given. * Dialysis Rounding - Skye Gomez NP - 06/28/2024 0634 EDT Dialysis Provider's Routine Assessment The visit was conducted via telehealth (audio/video) between the [facility] and the provider from their Home Office. The interaction was assisted by RN. The patient has no complaints and no new issues have been raised by the dialysis staff. The concept of ???Telemedicine?? has been described [...] in patient???s medical or mental health care. The location of the patient : Dialysis unit; Patient location state: Visit Location State: [place] The location of the provider: Office; Provider location state: Visit Location State: [place] Gerson Bruner was seen and examined as appropriate during Dialysis. Pertinent lab results were reviewed. Changes since last visit: None Changes to current prescriptions/orders: None Pt resting quietly on dialysis. Skye Gomez NP documented in this encounter Plan of Treatment Upcoming Encounters Date Type Department Care Team (Late st Contact Info) Description 12/06/2024 6:[address] [facility] [address] [place] [address] Carlota Jin MD 1 [facility], Level [address] [place] [phone] 12/08/2024 6:45 EST Treatment [facility] [address] [place], [place] [id number] Carlota Jin MD 1 [facility], [facility] [address] [place] [phone] 12/11/2024 6:45 EST Treatment [facility] [address] [place], [place] [phone] Carlota Jin MD 1 [facility], [facility] [address] [place] [phone] 12/13/2024 6:45 EST Treatment [facility] [address] [place], [place] [phone] Carlota Jin MD 1 [facility], [facility] [address] [place] [phone] 12/15/2024 6:45 EST Treatment [facility] [address] [place] [address] Carlota Jin MD 1 [facility], [facility] [address] [place] [phone] 12/18/2024 6:45 EST Treatment [facility] [address] [place], [place] [id number] Carlota Jin MD 1 [facility], [facility] [address] [place] [phone] 12/20/2024 6:45 EST Treatment [facility] [address] [place], [place] [phone] Carltoa Jin MD 1 [facility], [facility] [address] [place] [phone] 12/22/2024 6:45 EST Treatment [facility] [address] [place], [place] [phone] Carlota Jin MD 1 [facility], [facility] [address] [place] [phone] 12/25/2024 6:45 EST Treatment [facility] [address] [place], [place] [phone] Carlota Jin MD 1 [facility], [facility] [address] [place] [phone] 12/27/2024 6:45 EST Treatment [facility] [address] [place], [place] [phone] Carlota Jin MD 1 [facility], [facility] [address] [place] [phone] 12/29/2024 6:45 EST Treatment [facility] [address] [place], [place] [phone] Carlota Jin MD 1 [facility], [facility] [address] [place] [phone] 01/01/2025 6:45 EDT Treatment [facility] [address] [place], [place] [phone] Carlota Jin MD 1 [facility], [facility] [address] [place] [phone] 01/03/2025 6:45 EDT Treatment [facility] [address] [place], [place] [address] Carlota Jin MD 1 [facility], [facility] [address] [place] [phone] 01/05/2025 6:45 EDT Treatment [facility] [address] [place], [place] [phone] Carlota Jin MD 1 [facility], [facility] [address] [place] [phone] 01/08/2025 6:45 EDT Treatment [facility] [address] [place] [address] Carlota Jin MD 1 [facility], [facility] [address] [place] [phone] 01/10/2025 6:45 EDT Treatment [facility] [place] [address] [place] [address] Carlota Jin MD 1 [facility], [facility] [address] [place] [phone] 01/12/2025 6:45 EDT Treatment [facility] [address] [place], [place] [phone] Carlota Jin MD 1 [facility], [facility] [address] [place] [phone] 01/15/2025 6:45 EDT Treatment [facility] [address] [place], [place] [phone] Carlota Jin MD 1 [facility], [facility] [address] [place] [phone] 01/17/2025 6:45 EDT Treatment [facility] [address] [place], [place] [phone] Carlota Jin MD 1 [facility], [facility] [address] [place] [phone] 01/19/2025 6:45 EDT Treatment [facility] [address] [place] [address] Carlota Jin MD 1 [facility], [address] [phone] 01/22/2025 6:45 EDT Treatment [facility] [address] [place], [place] [phone] Carlota Jin MD 1 [facility], [facility] [address] [place] [phone] 01/24/2025 6:45 EDT Treatment [facility] [address] [place], [place] [phone] Carlota Jin MD 1 [facility], [facility] [address] [place] [phone] 01/26/2025 6:45 EDT Treatment [facility] [address] [place] [address] Carlota Jin MD 1 [facility], [facility] [address] [place] [phone] 01/29/2025 6:45 EDT Treatment [facility] [address] [place] [address] Carlota Jin MD 1 [facility], [facility] [address] [place] [phone] 01/31/2025 6:45 EDT Treatment [facility] [address] [place] [address] Carlota Jin MD 1 [facility], [address] [phone] 02/02/2025 6:45 EDT Treatment [facility] [address] [place] [address] Carlota Jin MD 1 [facility], [address] [phone] 02/05/2025 6:45 EDT Treatment [facility] [address] [place] [address] Carlota Jin MD 1 [facility], [facility] [address] [place] [phone] 02/07/2025 6:45 EDT Treatment [facility] [place] [address] [place], [place] [phone] Carlota Jin MD 1 [facility], [facility] [address] [place] [phone] 02/09/2025 6:45 EDT Treatment [facility] [address] [place], [place] [address] Carlota Jin MD 1 [facility], [facility] [address] [place] [phone] 02/12/2025 6:45 EDT Treatment [facility] [address] [place], [place] [phone] Carlota Jin MD [address] [place] [address], [facility] [address] [place] [phone] 02/14/2025 6:45 EDT Treatment [facility] [address] [place], [place] [address] Carlota Jin MD 1 [facility], [facility] [address] [place] [phone] 02/16/2025 6:45 EDT Treatment [facility] [address] [place] [address] Carlota Jin MD [address] [place] [address], [facility] [address] [place] [phone] 02/19/2025 6:45 EDT Treatment [facility] [address] [place], [place] [phone] Carlota Jin MD 1 [facility], [facility] [address] [place] [phone] 02/21/2025 6:45 EDT Treatment [facility] [address] [place] [address] Carlota Jin MD 1 [facility], Level [address] [place] [address] documented as of this encounter Procedures Procedure Name Priority Date/Time Associated Diagnosis Comments COMPLETE BLOOD COUNT Routine 06/28/2024 6:33 EDT ESRD (end stage renal disease) ([facility]) HEMODIALYSIS Routine 06/28/2024 6:21 EDT ESRD (end stage renal disease) ([facility]) documented in this encounter Results * (ABNORMAL) COMPLETE BLOOD COUNT (06/28/2024 6:33 EDT) WBC 8.83 4.00 - 10.40 K/cmm 06/28/2024 21:48 [facility] RBC 4.45 4.36 - 5.78 M/cmm 06/28/2024 21:48 [facility] Hemoglobin 12.1(L) 13.8 - 17.3 g/dL 06/28/2024 21:48 [facility] HCT 39.0(L) 39.5 - 50.2 % 06/28/2024 21:48 [facility] MCV 88 81 - 95 fL 06/28/2024 21:48 [facility] MCH 27.2(L) 27.6 - 33.0 pg 06/28/2024 21:48 [facility] MCHC 31.0(L) 32.8 - 36.4 g/dL 06/28/2024 21:48 [facility] RDW-CV 18.1(H) <14.2 % 06/28/2024 21:48 [facility] RDW-SD 57.4(H) <46.0 fl 06/28/2024 21:48 [facility] PLT 281 141 - 377 K/cmm 06/28/2024 21:48 [facility] MPV 11.4 9.5 - 12.7 fL 06/28/2024 21:48 EDT [facility] Blood VENOUS BLOOD / Unknown Venipuncture / Unknown 06/28/2024 6:33 EDT 06/28/2024 6:33 EDT Skye Gomez LOAN REVIEW OFFICER HEMATOLOGY & PF4 ORDERABLES Final Result [facility] [address] [place], [place] [phone] documented in this encounter Visit Diagnoses Diagnosis ESRD (end stage renal disease) ([facility])- Primary End stage renal disease Anemia of chronic renal failure, unspecified CKD stage Hypoalbuminemia Other disorders of plasma protein metabolism Secondary hyperparathyroidism ([facility]) Secondary hyperparathyroidism (of renal origin) documented in this encounter Administered Medications Inactive Administered Medications - up to 3 most recent administrations Medication Order MAR Action Action Date Dose Rate Site acetaminophen (TYLENOL) tablet 650 mg 650 mg, oral, EVERY 4 HOURS PRN, Starting on Wed06/28/24 at 1214, Until Wed06/28/24 at 1553, Pain, Routine, DialysisIndications:ESRD (end stage renal disease) ([facility]) Given 06/28/2024 12:14 EDT 650 mg calcium carbonate (TUMS) tablet 500 mg (200 mg elemental calcium) 2 Tablet 2 Tablet, oral, ONCE IN DIALYSIS, 1 dose, On Wed06/28/24 at 0645, Routine, DialysisIndications:ESRD (end stage renal disease) ([facility]),Secondary hyperparathyroidism ([facility]) Given 06/28/2024 6:55 EDT 2 Tablets epoetin ken (EPOGEN) 20,000 unit/2 mL injection 12,000 Units 12,000 Units, intravenous, ONCE IN DIALYSIS, 1 dose, On Wed06/28/24 at 0645, Routine, DialysisIndications:ESRD (end stage renal disease) ([facility]),Anemia of chronic renal failure, unspecified CKD stage Given 06/28/2024 6:55 EDT 12,000 Units heparin injection 5,000 Units 5,000 Units, intravenous, ONCE IN DIALYSIS, 1 dose, On 9/4/24 at 0645, Routine, Dialysis, Now x1 bolus 2600 units to be given at the beginning of dialysis 800 units/hour to be given over the course of dialysis (5000 units total). Stop 1 hour prior to end of treatment. To be administered per Policy [id number].Indications:ESRD (end stage renal disease) ([facility]) Given 06/28/2024 6:55 EDT 5,000 Units LiquaCel liquid protein liquid 30 mL 30 mL, oral, ONCE IN DIALYSIS, 1 dose, On Wed06/28/24 at 0645, Patient's flavor preference: either, RoutineIndications:ESRD (end stage renal disease) ([facility]),Hypoalbuminemia Given 06/28/2024 6:55 EDT 30 mL documented in this encounter Orders Medications Ordered That Davide ht Not Have Been Administered Count Last Ordered Date First Ordered Date iron sucrose (VENOFER) injection 200 mg 1 0 06/28/2024 Dialysis Count Last Ordered Date First Orde red Date HEMODIALYSIS 1 06/28/2024 documented in this encounter Care Teams Driftman Relationship Specialty Start Date End Date Ken Greer MD [address] [place] [address] PCP - General 07/07/23 Kiel Powers Ict Customer Support Officer Nephrology 05/31/24 documented as of this encounter
--- OUTSIDE RECORDS SUMMARY | 2024-12-05 12:01 | XMS_ITS | Encounter Summary ---
Author Organization [facility] Address [address] [place] [address] Care Team Providers Care Account Underwriter Name Role Phone Ken Greer MD Primary Care Provider [phone] Kiel Powers Unavailable Unavailable Reason for Visit * Episode Based Medications (Routine) - New Request Specialty Diagnoses / Procedures Referred By Nader gardiner Referred To Contact Diagnoses ESRD (end stage renal disease) ([facility]) Carlota Jin MD [address] [place] [address] 2 [place] [address] Phone: tel: fax: [facility] [place] [address] [place] [address] Phone: tel: fax: Referral ID Status Reason Start Date Expiration Date V isits Requested Visits Authorized [id number] New Request 03/17/2024 1 1 Encounter Details Date Type Department Care Team (Latest Contact Info) Description 06/30/2024 6:[address] [facility] [address] [place], [place] [id number] Carlota Jin MD [address] [place] [address], [facility] 2 [place] [address] ESRD (end stage renal disease) ([facility]) (Primary Dx); Anemia of chronic renal failure, unspecified CKD stage; Hypoalbuminemia; Secondary hyperparathyroidism ([facility]) Social History Tobacco Use Types Packs/Day Years Used Date Smoking Tobacco: Every Day Cigarettes 1 26.1 Started: 1998 Smokeless Tobacco: Never Alcohol Use Standard Drinks/Week Comments Yes 0 (1 standard drink = 0.6 oz pur e alcohol) Socially [facility] Utilities Answer Date Recorded In [...] the past 12 months has th e [employer], gas, oil, or water [employer] threatened to shut off services in your [...] - Temperature - - Respiratory Rate 16 06/30/2024 0627 EDT Oxygen Saturation - - Inhaled Oxygen Concentration - - Weight 79.5 kg (175 lb 4.3 oz) 06/30/2024 0629 E DT Height - - Body Mass Index 25.15 12/20/2023 2202 EST documented in this encounter [...] Flowsheet Note - Melissa Crespo RN - 06/30/2024 1539 EDT 06/30/24 1059 Post-Hemodialysis Assessment Total Blood Processed (L) 89.12 Liters On Line Clearance: spKt/V 1.59 spKt/V Dialyzer Clearance Lightly streaked Final Critline Profile (%/hr) -1.72 Final Profile Profile A Critline refill Positive (H1: 35.4 H2:34.7) Fluid Removed (L) 5 L Post-Dialysis Scale Weight 93.8 kg (206 lb 12.7 oz) Wheelchair Weight 19.1 kg (42 lb 1.7 oz) Prosthesis Weight 0 kg (0 lb) Post-Treatment Weight (kg) 74.7 Post Sitting/Lying BP 141/77 Post Sitting/Lying pulse 62 Temp 36.2 ??C (97.2 ??F) Temp src Temporal Minutes Short -258 Post access assessment Bruit present: Yes Thrill Present AVF/AFG Hemostasis achieved Yes Note Patient held for 10mins with blue clamps and 2 stoppers per site Orientation Alert and Oriented x3 Yes Time Yes Place Yes Person Yes Cooperative Yes Disoriented No Discharge Ambulation Methods Departs via w/c;With patient transport Wrap up items Patient Response to Treatment Tolerated tx. Removed 5000 UF goal. Stable upon DC from unit. Comments No issues during tx, No concerns voiced post tx. documented in this encounter Plan of Treatment Upcoming Encounters Date Type Department Care Team (Late st Contact Info) Description 12/06/2024 6:[address] [facility] [place] [address] [place], [place] [id number] Carlota Jin MD 1 [facility], [address] [phone] 12/08/2024 6:[address] [facility] [place] [address] [place], [place] [id number] Carlota Jin MD [address] [phone] 12/11/2024 6:[address] [facility] [place] [address] [place], [place] [id number] Carlota Jin MD [address] [phone] 12/13/2024 6:[address] [facility] [place] [address] [place], [place] [id number] Carlota Jin MD [address] [phone] 12/15/2024 6:[address] [facility] [place] [address] [place], [place] [id number] Carlota Jin MD [address] [phone] 12/18/2024 6:[address] [facility] [place] [address] [place], [place] [id number] Carlota Jin MD 1 [facility], [facility] 2 [place] [phone] 12/20/2024 6:[address] [facility] [place] [address] [place], [place] [id number] Carlota Jin MD 1 [facility], [facility] 2 [place] [phone] 12/22/2024 6:[address] [facility] [address] [place], [place] [id number] Carlota Jin MD 1 [facility], [facility] 2 [place] [phone] 12/25/2024 6:[address] [facility] [address] [place], [place] [address] Carlota Jin MD 1 [facility], [facility] 2 [place] [phone] 12/27/2024 6:[address] [facility] [place] [address] [place], [place] [id number] Carlota Jin MD 1 [facility], [facility] 2 [place] [phone] 12/29/2024 6:[address] [facility] [address] [place], [place] [id number] Carlota Jin MD 1 [facility], [facility] 2 [place] [phone] 01/01/2025 6:[address] [facility] [place] [address] [place] [address] Carlota Jin MD 1 [facility], [facility] 2 [place] [phone] 01/03/2025 6:[address] [facility] [place] [address] [place] [address] Carlota Jin MD 1 [facility], [facility] 2 [place] [phone] 01/05/2025 6:[address] [facility] [place] [address] [place], [place] [id number] Carlota Jin MD 1 [facility], [facility] 2 [place] [phone] 01/08/2025 6:[address] [facility] [place] [address] [place] [address] Carlota Jin MD 1 [facility], [facility] 2 [place] [phone] 01/10/2025 6:[address] [facility] [place] [address] [place], [place] [id number] Carlota Jin MD 1 [facility], [facility] 2 [place] [phone] 01/12/2025 6:[address] [facility] [place] [address] [place], [place] [id number] Carlota Jin MD 1 [facility], [facility] 2 [place] [phone] 01/15/2025 6:[address] [facility] [place] [address] [place], [place] [id number] Carlota Jin MD 1 [facility], [facility] 2 [place] [phone] 01/17/2025 6:[address] [facility] [address] [place], [place] [id number] Carlota Jin MD 1 [facility], [facility] 2 [place] [phone] 01/19/2025 6:[address] [facility] [address] [place], [place] [id number] Carlota Jin MD 1 [facility], [facility] 2 [place] [phone] 01/22/2025 6:[address] [facility] [address] [place], [place] [id number] Carlota Jin MD 1 [facility], [facility] 2 [place] [phone] 01/24/2025 6:[address] [facility] [place] [address] [place], [place] [address] Carlota Jin MD 1 [facility], [facility] 2 [place] [phone] 01/26/2025 6:[address] [facility] [place] [address] [place], [place] [id number] Carlota Jin MD 1 [facility], [address] [phone] 01/29/2025 6:[address] [facility] [place] [address] [place], [place] [id number] Carlota Jin MD 1 [facility], [address] [phone] 01/31/2025 6:[address] [facility] [place] [address] [place], [place] [id number] Carlota Jin MD [address] [phone] 02/02/2025 6:[address] [facility] [place] [address] [place], [place] [id number] Carlota Jin MD [address] [phone] 02/05/2025 6:[address] [facility] [place] [address] [place], [place] [id number] Carlota Jin MD 1 [facility], [facility] 2 [place] [phone] 02/07/2025 6:[address] [facility] [place] [address] [place], [place] [id number] Carlota Jin MD 1 [facility], [facility] 2 [place] [phone] 02/09/2025 6:[address] [facility] [place] [address] [place], [place] [id number] Carlota Jin MD 1 [facility], [facility] 2 [place] [phone] 02/12/2025 6:[address] [facility] [place] [address] [place], [place] [id number] Carlota Jin MD 1 [facility], [facility] 2 [place] [phone] 02/14/2025 6:[address] [facility] [place] [address] [place] [address] Carlota Jin MD 1 [facility], [facility] 2 [place] [phone] 02/16/2025 6:[address] [facility] [place] [address] [place], [place] [id number] Carlota Jin MD 1 [facility], [facility] 2 [place] [phone] 02/19/2025 6:[address] [facility] [place] [address] [place], [place] [id number] Carlota Jin MD 1 [facility], [facility] 2 [place] [phone] 02/21/2025 6:[address] [facility] [address] [place], [place] [id number] Carlota Jin MD 1 [facility], [facility] 2 [place] [phone] documented as of this encounter Procedures Procedure Name Priority Date/Time Associated Diagnosis Comments HEMODIALYSIS Routine 06/30/2024 6:27 EDT ESRD (end stage renal disease) ([facility]) documented in this encounter Visit Diagnoses Diagnosis ESRD (end stage renal disease) ([facility])- Primary End stage renal disease Anemia of chronic renal failure, unspecified CKD stage Hypoalbuminemia Other disorders of plasma protein metabolism Secondary hyperparathyroidism ([facility]) Secondary hyperparathyroidism (of renal origin) documented in this encounter Administered Medications Inactive Administered Medications - up to 3 most recent administrations Medication Order MAR Action Action Date Dose Rate Site calcium carbonate (TUMS) tablet 500 mg (200 mg elemental calcium) 2 Tablet 2 Tablet, oral, ONCE IN DIALYSIS, 1 dose, On Wed06/30/24 at 0645, Routine, DialysisIndications:ESRD (end stage renal disease) ([facility]),Secondary hyperparathyroidism ([facility]) Given 06/30/2024 8:48 EDT 2 Tablets epoetin ken (EPOGEN) 20,000 unit/2 mL injection 12,000 Units 12,000 Units, intravenous, ONCE IN DIALYSIS, 1 dose, On Wed06/30/24 at 0645, Routine, DialysisIndications:ESRD (end stage renal disease) ([facility]),Anemia of chronic renal failure, unspecified CKD stage Given 06/30/2024 8:47 EDT 12,000 Units heparin injection 5,000 Units 5,000 Units, intravenous, ONCE IN DIALYSIS, 1 dose, On Wed06/30/24 at 0645, Routine, Dialysis, Now x1 bolus 2600 units to be given at the beginning of dialysis 800 units/hour to be given over the course of dialysis (5000 units total). Stop 1 hour prior to end of treatment. To be administered per Policy [id number].Indications:ESRD (end stage renal disease) ([facility]) Given 06/30/2024 6:41 EDT 5,000 Units iron sucrose (VENOFER) injection 200 mg 200 mg, intravenous, ONCE IN DIALYSIS, 1 dose, On Wed06/30/24 at 0645, Routine, DialysisIndications:ESRD (end stage renal disease) ([facility]) Given 06/30/2024 10:50 EDT 200 mg LiquaCel liquid protein liquid 30 mL 30 mL, oral, ONCE IN DIALYSIS, 1 dose, On Wed06/30/24 at 0645, Patient's flavor preference: either, RoutineIndications:ESRD (end stage renal disease) ([facility]),Hypoalbuminemia Given 06/30/2024 8:48 EDT 30 mL documented in this encounter Orders Dialysis Count Last Ordered Date First Orde red Date HEMODIALYSIS 1 06/30/2024 documented in this encounter Care Teams Account Underwriter Relationship Specialty Start Date End Date Ken Greer MD [address] [place] [address] PCP - General 07/07/23 Kiel Powers Manager Reporting Nephrology 05/31/24 documented as of this encounter
--- OUTSIDE RECORDS SUMMARY | 2024-12-05 12:01 | XMS_ITS | Encounter Summary ---
Author Organization [facility] Address [address] [place] [address] Care Team Providers Care Retail Furniture Sales Name Role Phone Ken Greer MD Primary Care Provider [phone] Kiel Powers Unavailable Unavailable Encounter Details Date Type Department Care Team (Late st Contact Info) Description 06/27/2024 Documentation Visit [facility] [address] [place] [address] Shelley Eden, RD [address] [place] [address] Social History Tobacco Use Types Packs/Day Years Used Date Smoking Tobacco: Every Day Cigarettes 1 26.1 Started: 1998 Smokeless Tobacco: Never Alcohol Use Standard Drinks/Week Comments Yes 0 (1 standard drink = 0.6 oz pur e alcohol) Socially [facility] Utilities Answer Date Recorded In the past 12 months has e [employer], gas, oil, or water [employer] threatened to shut off services in your [...] living situation today? I have a [facility] place to live 05/30/2024 Think about [...] the past 12 months has th e [employer], gas, oil, or water [employer] threatened to shut off services in your [...] Contact Info) Description 12/06/2024 6:45 EST Treatment [facility] [place] [address] [place] [id number] Carlota Jin MD 1 [facility], [facility] [address] [place] [address] 12/08/2024 6:45 EST Treatment [facility] [place] [address] [place], [place] [id number] Carlota Jin MD 1 [facility] 2 [place] [phone] 12/11/2024 6:45 EST Treatment [facility] [address] [place], [place] [id number] Carlota Jin MD 1 [facility], [facility] 2 [place] [phone] 12/13/2024 6:45 EST Treatment [facility] [place] [address] [place] [address] Carlota Jin MD 1 [facility], [address] [phone] 12/15/2024 6:45 EST Treatment [facility] [place] [address] [place], [place] [id number] Carlota Jin MD 1 [facility], [address] [phone] 12/18/2024 6:45 EST Treatment [facility] [address] [place] [address] Carlota Jin MD 1 [facility], [facility] 2 [place] [phone] 12/20/2024 6:45 EST Treatment [facility] [address] [place], [place] [id number] Carlota Jin MD 1 [facility], [facility] 2 [place] [phone] 12/22/2024 6:45 EST Treatment [facility] [address] [place], [place] [id number] Carlota Jin MD 1 [facility], [facility] 2 [place] [phone] 12/25/2024 6:45 EST Treatment [facility] [address] [place], [place] [id number] Carlota Jin MD 1 [facility], [facility] 2 [place] [phone] 12/27/2024 6:45 EST Treatment [facility] [address] [place], [place] [id number] Carlota Jin MD 1 [facility], [facility] 2 [place] [phone] 12/29/2024 6:45 EST Treatment [facility] [address] [place], [place] [id number] Carlota Jin MD 1 [facility], [facility] 2 [place] [phone] 01/01/2025 6:45 EDT Treatment [facility] [address] [place], [place] [id number] Carlota Jin MD 1 [facility], [facility] 2 [place] [phone] 01/03/2025 6:45 EDT Treatment [facility] [address] [place], [place] [id number] Carlota Jin MD 1 [facility], [facility] 2 [place] [phone] 01/05/2025 6:45 EDT Treatment [facility] [address] [place] [address] Carlota Jin MD 1 [facility], [address] [phone] 01/08/2025 6:45 EDT Treatment [facility] [address] [place], [place] [id number] Carlota Jin MD 1 [facility], [address] [phone] 01/10/2025 6:45 EDT Treatment [facility] [place] [address] [place], [place] [id number] Carlota Jin MD 1 [facility], [address] [phone] 01/12/2025 6:45 EDT Treatment [facility] [address] [place], [place] [id number] Carlota Jin MD 1 [facility], [facility] 2 [place] [phone] 01/15/2025 6:45 EDT Treatment [facility] [address] [place], [place] [id number] Carlota Jin MD 1 [facility], [facility] 2 [place] [phone] 01/17/2025 6:45 EDT Treatment [facility] [address] [place], [place] [id number] Carlota Jin MD 1 [facility], [facility] 2 [place] [phone] 01/19/2025 6:45 EDT Treatment [facility] [address] [place], [place] [id number] Carlota Jin MD 1 [facility], [facility] 2 [place] [phone] 01/22/2025 6:45 EDT Treatment [facility] [place] [address] [place] [address] Carlota Jin MD 1 [facility], [address] [phone] 01/24/2025 6:45 EDT Treatment [facility] [place] [address] [place], [place] [id number] Carlota Jin MD 1 [facility], [facility] 2 [place] [phone] 01/26/2025 6:45 EDT Treatment [facility] [address] [place], [place] [id number] Carlota Jin MD 1 [facility], [facility] 2 [place] [phone] 01/29/2025 6:45 EDT Treatment [facility] [address] [place], [place] [address] Carlota Jin MD 1 [facility], [facility] 2 [place] [phone] 01/31/2025 6:45 EDT Treatment [facility] [address] [place], [place] [id number] Carlota Jin MD 1 [facility], [facility] 2 [place] [phone] 02/02/2025 6:45 EDT Treatment [facility] [address] [place], [place] [id number] Carlota Jin MD 1 [facility], [address] [phone] 02/05/2025 6:45 EDT Treatment [facility] [place] [address] [place], [place] [id number] Carlota Jin MD [address] [phone] 02/07/2025 6:45 EDT Treatment [facility] [address] [place], [place] [id number] Carlota Jin MD [address] [phone] 02/09/2025 6:45 EDT Treatment [facility] [address] [place], [place] [id number] Carlota Jin MD 1 [facility] 2 [place] [phone] 02/12/2025 6:45 EDT Treatment [facility] [place] [address] [place], [place] [id number] Carlota Jin MD 1 [facility], [facility] 2 [place] [phone] 02/14/2025 6:45 EDT Treatment [facility] [address] [place], [place] [id number] Carlota Jin MD 1 [facility], [facility] 2 [place] [phone] 02/16/2025 6:45 EDT Treatment [facility] [address] [place], [place] [id number] Carlota Jin MD 1 [facility], [facility] 2 [place] [phone] 02/19/2025 6:45 EDT Treatment [facility] [place] [address] [place], [place] [id number] Carlota Jin MD 1 [facility], [facility] 2 [place] [phone] 02/21/2025 6:45 EDT Treatment [facility] [place] [address] [place], [place] [id number] Carlota Jin MD 1 [facility], [facility] 2 [place] [phone] documented as of this encounter Visit Diagnoses Not on filedocumented in this encounter Care Teams Retail Furniture Sales Relationship Specialty Start Date End Date Ken Greer MD [facility] [place] [address] PCP - General 07/07/23 Kiel Powers Straightedge Worker Nephrology 05/31/24 documented as of this encounter
--- OUTSIDE RECORDS SUMMARY | 2024-12-05 12:01 | XMS_ITS | Encounter Summary ---
Author Organization [facility] Address [address] [place] [address] Care Team Providers Care Healthcare Specialist Name Role Phone Ken Greer MD Primary Care Provider Kiel Powers Unavailable Unavailable Reason for Visit * Episode Based Medications (Routine) - New Request Specialty Diagnoses / Procedures Referred By Nader gardiner Referred To Contact Diagnoses ESRD (end stage renal disease) ([facility]) Carlota Jin MD [address] [place] [address] [address] [place] [address] Phone: tel: fax: [facility] [address] [place] [address] Phone: tel: fax: Referral ID Status Reason Start Date Expiration Date V isits Requested Visits Authorized [id number] New Request 03/17/2024 1 1 Encounter Details Date Type Department Care Team (Latest Contact Info) Description 06/23/2024 6:45 EDT Treatment [facility] [address] [place], [place] [id number] Carlota Jin MD [address] [place] [address], [facility] [address] [place] [phone] ESRD (end stage renal disease) ([facility]) (Primary Dx); Anemia of chronic renal failure, unspecified CKD stage; Hypoalbuminemia; Secondary hyperparathyroidism ([facility]) Social History Tobacco Use Types Packs/Day [...] in the past 12 m [facility], were you homeless or living in a [...] the past 12 months has th e [employer], gas, oil, or water [employer] threatened to shut off services in [...] - Temperature - - Respiratory Rate 16 06/23/2024 0621 EDT Oxygen Saturation - - Inhaled Oxygen Concentration - - Weight 80.8 kg (178 lb 2.1 oz) 06/23/2024 0626 E DT Height - - Body Mass Index 25.56 12/20/2023 2202 EST documented in this encounter [...] Flowsheet Note - Marcela Cox RN - 06/23/2024 1357 EDT 06/23/24 1046 Post-Hemodialysis Assessment Total Blood Processed (L) 91.02 Liters On Line Clearance: spKt/V 1.51 spKt/V Dialyzer Clearance Lightly streaked Treatment UFR (ml:kg:hr) 13.29 ml:kg:hr Critline refill Not done Fluid Removed (L) 4.5 L Post-Dialysis Scale Weight 96.3 kg (212 lb 4.9 oz) Wheelchair Weight 19.5 kg (42 lb 15.8 oz) Prosthesis Weight 0 kg (0 lb) Post-Treatment Weight (kg) 76.8 Treatment Weight Change (kg) 4.1 kg Day Target Weight (kg) 76.9 Post Sitting/Lying BP 164/87 Post Sitting/Lying pulse 73 Temp 35.8 ??C (96.4 ??F) Temp src Temporal Minutes Short -241 Post access assessment AVF/AFG Hemostasis achieved Yes Note both needles rebled after clamping a few mins hold time approx 20 min Orientation Alert and Oriented x3 Yes Time Yes Place Yes Person Yes Cooperative Yes Disoriented No Discharge Ambulation Methods Departs via w/c;With patient transport Wrap up items Patient Response to Treatment Tolerated tx well. Removed 4.5L UF goal without difficulty. Comments no concerns voiced post tx. documented in this encounter Plan of Treatment Upcoming Encounters Date Type Department Care Team (Late st Contact Info) Description 12/06/2024 6:45 EST Treatment [facility] [address] [place], [place] [phone] Carlota Jin MD 1 [facility], [facility] [address] [place] [phone] 12/08/2024 6:45 EST Treatment [facility] [address] [place], [place] [phone] Carlota Jin MD [address] [place] [phone] 12/11/2024 6:45 EST Treatment [facility] [address] [place], [place] [id number] Carlota Jin MD [address] [phone] 12/13/2024 6:45 EST Treatment [facility] [address] [place], [place] [id number] Carlota Jin MD [address] [place] [address], [address] [phone] 12/15/2024 6:45 EST Treatment [facility] [address] [place], [place] [phone] Carlota Jin MD [address] [place] [phone] 12/18/2024 6:45 EST Treatment [facility] [address] [place], [place] [id number] Carlota Jin MD 1 [facility], [facility] [address] [place] [phone] 12/20/2024 6:45 EST Treatment [facility] [address] [place], [place] [id number] Carlota Jin MD 1 [facility], [facility] [address] [place] [phone] 12/22/2024 6:45 EST Treatment [facility] [address] [place], [place] [id number] Carlota Jin MD 1 [facility], [facility] [address] [place] [phone] 12/25/2024 6:45 EST Treatment [facility] [address] [place], [place] [id number] Carlota Jin MD [address] [facility], [facility] [address] [place] [phone] 12/27/2024 6:45 EST Treatment [facility] [address] [place], [place] [id number] Carlota Jin MD [address] [facility], [facility] [address] [place] [phone] 12/29/2024 6:45 EST Treatment [facility] [address] [place] [phone] Carlota Jin MD 1 [facility], [facility] [address] [place] [phone] 01/01/2025 6:45 EDT Treatment [facility] [address] [place], [place] [phone] Carlota Jin MD 1 [facility], [facility] [address] [place] [phone] 01/03/2025 6:45 EDT Treatment [facility] [address] [place] [address] Carlota Jin MD 1 [facility], [address] [phone] 01/05/2025 6:45 EDT Treatment [facility] [address] [place], [place] [id number] Carlota Jin MD [address] [facility], [address] [phone] 01/08/2025 6:45 EDT Treatment [facility] [address] [place] [address] Carlota Jin MD 1 [facility], [facility] [address] [place] [phone] 01/10/2025 6:45 EDT Treatment [facility] [address] [place], [place] [phone] Carlota Jin MD [address] [facility], [facility] [address] [place] [phone] 01/12/2025 6:45 EDT Treatment [facility] [address] [place], [place] [id number] Carlota Jin MD 1 [facility], [facility] [address] [place] [phone] 01/15/2025 6:45 EDT Treatment [facility] [address] [place], [place] [id number] Carlota Jin MD 1 [facility], [facility] [address] [place] [phone] 01/17/2025 6:45 EDT Treatment [facility] [address] [place], [place] [address] Carlota Jin MD 1 [facility], [address] [phone] 01/19/2025 6:45 EDT Treatment [facility] [address] [place], [place] [id number] Carlota Jin MD 1 [facility], [facility] [address] [place] [phone] 01/22/2025 6:45 EDT Treatment [facility] [address] [place], [place] [phone] Carlota Jin MD 1 [facility], [facility] [address] [place] [phone] 01/24/2025 6:45 EDT Treatment [facility] [address] [place], [place] [address] Carlota Jin MD 1 [facility], [address] [phone] 01/26/2025 6:45 EDT Treatment [facility] [address] [place] [address] Carlota Jin MD 1 [facility], [address] [phone] 01/29/2025 6:45 EDT Treatment [facility] [address] [place], [place] [address] Carlota Jin MD [address] [facility], [address] [phone] 01/31/2025 6:45 EDT Treatment [facility] [address] [place] [address] Carlota Jin MD [address] [facility], [address] [phone] 02/02/2025 6:45 EDT Treatment [facility] [address] [place], [place] [phone] Carlota Jin MD [address] [phone] 02/05/2025 6:45 EDT Treatment [facility] [address] [place], [place] [address] Carlota Jin MD 1 [facility], [address] [phone] 02/07/2025 6:45 EDT Treatment [facility] [address] [place], [place] [phone] Carlota Jin MD 1 [facility], [facility] [address] [place] [phone] 02/09/2025 6:45 EDT Treatment [facility] [address] [place], [place] [phone] Carlota Jin MD 1 [facility], [address] [phone] 02/12/2025 6:45 EDT Treatment [facility] [address] [place], [place] [phone] Carlota Jin MD 1 [facility], [facility] [address] [place] [phone] 02/14/2025 6:45 EDT Treatment [facility] [address] [place], [place] [id number] Carlota Jin MD 1 [facility], [facility] 2 [place] [phone] 02/16/2025 6:45 EDT Treatment [facility] [address] [place], [place] [phone] Carlota Jin MD 1 [facility], [facility] [address] [place] [phone] 02/19/2025 6:45 EDT Treatment [facility] [address] [place], [place] [phone] Carlota Jin MD 1 [facility], [facility] [address] [place] [phone] 02/21/2025 6:45 EDT Treatment [facility] [address] [place], [place] [phone] Carlota Jin MD [address] [facility], [facility] [address] [place] [phone] documented as of this encounter Procedures Procedure Name Priority Date/Time Associated Diagnosis Comments HEMODIALYSIS Routine 06/23/2024 6:21 EDT ESRD (end stage renal disease) ([facility]) documented in this encounter Visit Diagnoses Diagnosis ESRD (end stage renal disease) ([facility])- Primary End stage renal disease Anemia of chronic renal failure, unspecified CKD stage Hypoalbuminemia Other disorders of plasma protein metabolism Secondary hyperparathyroidism ([facility]) Secondary hyperparathyroidism (of renal origin) documented in this encounter Administered Medications Inactive Administered Medications - up to 3 most recent administrations Medication Order MAR Action Action Date Dose Rate Site acetaminophen (TYLENOL) tablet 650 mg 650 mg, oral, EVERY 4 HOURS PRN, Starting on Wed06/23/24 at 0632, Until Wed06/23/24 at 1557, Pain, Routine, DialysisIndications:ESRD (end stage renal disease) ([facility]) Given 06/23/2024 7:18 EDT 650 mg calcium carbonate (TUMS) tablet 500 mg (200 mg elemental calcium) 2 Tablet 2 Tablet, oral, ONCE IN DIALYSIS, 1 dose, On Wed06/23/24 at 0645, Routine, DialysisIndications:ESRD (end stage renal disease) ([facility]),Secondary hyperparathyroidism ([facility]) Given 06/23/2024 7:18 EDT 2 Tablets epoetin ken (EPOGEN) 20,000 unit/2 mL injection 12,000 Units 12,000 Units, intravenous, ONCE IN DIALYSIS, 1 dose, On 8/30/24 at 0645, Routine, DialysisIndications:ESRD (end stage renal disease) ([facility]),Anemia of chronic renal failure, unspecified CKD stage Given 06/23/2024 7:16 EDT 12,000 Units heparin injection 7,000 Units 7,000 Units, intravenous, ONCE IN DIALYSIS, 1 dose, On Wed06/23/24 at 0645, Routine, Dialysis, Now x1 bolus 3400 units to be given at the beginning of dialysis 900 units/hour to be given over the course of dialysis (7000 units total). Stop 1 hour prior to end of treatment. To be administered per Policy [id number].Indications:ESRD (end stage renal disease) ([facility]) Given 06/23/2024 7:17 EDT 7,000 Units LiquaCel liquid protein liquid 30 mL 30 mL, oral, ONCE IN DIALYSIS, 1 dose, On Wed06/23/24 at 0645, Patient's flavor preference: either, RoutineIndications:ESRD (end stage renal disease) ([facility]),Hypoalbuminemia Given 06/23/2024 7:17 EDT 30 mL documented in this encounter Orders Dialysis Count Last Ordered Date First Orde red Date HEMODIALYSIS 1 06/23/2024 documented in this encounter Care Teams Healthcare Specialist Relationship Specialty Start Date End Date Ken Greer MD [facility] [place] [address] PCP - General 07/07/23 Kiel Powers [employer] Nephrology 05/31/24 documented as of this encounter
--- OUTSIDE RECORDS SUMMARY | 2024-12-05 12:02 | XMS_ITS | Encounter Summary ---
Author Organization [facility] Address [address] [place] [address] Care Team Providers Care Design Director Name Role Phone Ken Greer MD Primary Care Provider [phone] Kiel Powers Unavailable Unavailable Reason for Referral * Follow Up (Routine/Next Available) - New Request Specialty Diagnoses / Procedures Referred By Nader gardiner Referred To Contact Diagnoses Acute hypoxic respiratory failure ([facility]) ESRD (end stage renal disease) (HCC-CMS) [facility] General Medicine Unit [address] [place] [address] Phone: tel: fax: Ken Greer MD [address] [place] [address] [place] [address] Phone: tel: fax: Referral ID Status Reason Start Date Expiration Date Visits Requested Visits Authorized [id number] New Request Continuity of Care 05/31/2024 1 1 Question Answer Reason for Request: Hospital admission for dyspnea following dialysis Reason for Visit * Auth/Cert (Routine) Specialty Diagnoses / Procedures Referred By Nader gardiner Referred To Contact Diagnoses Acute hypoxic respiratory failure ([facility]) Hypoglycemia; acute hypoxic resp failure; dialysis pt Referral ID Status Reason Start Date Expiration Date Visits Re quested Visits Authorized [id number] 1 1 Encounter Details Date Type Department Care Team ([facility] st Contact Info) Description 05/30/2024 18:16 EDT - 05/31/2024 18:08 EDT Hospital Encounter [facility] General Medicine Unit [address] [place] [address] Yaritza Delcid MD [address] [id number] Jayy Gilliland MD [address] [phone] Melissa Elena MD [address] [phone] Acute hypoxic respiratory failure ([facility]) [J96.01] (Primary Dx); ESRD (end stage renal disease) ([facility]) [N18.6]; Primary hypertension [I10]; Type 2 diabetes mellitus with other circulatory complication, with long-term current use of insulin ([facility]) [E11.59, Z79.4]; Hypoglycemia [E16.2]; Atrial fibrillation and flutter ([facility]) [I48.91, I48.92]; ESRD (end stage renal disease) ([facility]) [place] Dis[place]: [place] [facility] [place] Tobacco Use Types Packs/Day Years [...] In the past 12 months has e [employer], gas, oil, or water company threatened to [...] any time in the past 12 m [facility], were you homeless or living in [...] harm? Never 05/30/2024 How often does anyone, christineu eloy family and friends, scream or curse [...] Sign Reading Time Taken Comments Blood Pressure 189/96 05/31/2024 1633 EDT Pulse 77 05/31/2024 1633 EDT Temperature 36.7 ??C (98.1 ??F) 05/31/2024 1633 EDT Respiratory Rate 18 05/31/2024 1633 EDT Oxygen Saturation 91% 05/31/2024 0453 EDT Inhaled Oxygen Concentration - - Weight 75.4 kg (166 lb 3.6 oz) 05/31/2024 1633 E DT Height - - Body Mass Index 23.85 12/20/2023 2202 EST documented in this encounter [...] of Assessment Author Yes 05/30/2024 18:25 Daria Baca, RN documented as of this encounter Mental Status * Because of a physical, mental, or emotional condition, do you have serious difficulty concentrating, remembering, or making decisions? (5 years old or older) Answer Entry Date Author No 05/30/2024 18:25 Daria Baca RN documented in this encounter Discharge Summaries * Melissa Elena MD - 05/31/2024 1022 EDT HOSPITAL MEDICINE DISCHARGE SUMMARY Primary Care Provider: Ken Greer Attending Physician: Melissa Elena MD Admit Date: 05/30/24 Discharge Date: 05/31/24 Disposition (location): Home Condition at Discharge: Stable Reason for Admission (chief complaint): Acute dyspnea Principal/Final Diagnosis: Acute hypoxic respiratory failure ([facility]) Additional Problems Managed in the Hospital: Active Hospital Problems Diagnosis Date Noted *Acute hypoxic respiratory failure ([facility]) 05/30/2024 Diabetes mellitus ([facility]) 05/31/2024 Hypoglycemia 05/31/2024 Atrial fibrillation and flutter ([facility]) 12/21/2023 Resolved Hospital Problems No resolved problems to display. Transition of care: [facility] Transition of Care report automatically routed [...] Pre Transplant Evaluation with Juan Cleveland MD [facility] [place] (--) 1 [facility] [id number] Jul 20, 2024 15:00 Pre Transplant Evaluation with TRANSPLANT, NEPHROLOGY [facility] Transplant - [place] (--) 1 [facility] [id number] CHRIST RANDOLPH DO Internal Medicine PGY-1 [employer] secure chat or [phone] 05/31/24 10:29 Attending [...] Dos 05/31/24 Melissa Elena MD 06/01/2024 7:53 documented in this encounter Discharge Instructions * Attachments The following attachments cannot be sent through Care Everywhere. * Diabetes: Sick Care (Guamanian) * Diabetes: Blood Sugar Emergencies (Guamanian) documented in this encounter Medications at Time of Discharge acetaminophen (TYLENOL) 325 mg tablet Take 2 Tablets by mouth every 6 hours. 0 12/24/2023 albuterol 90 mcg/actuation HFA aerosol inhaler inhaler Inhale 2 Puffs as directed every 4 hours. amLODIPine (NORVASC) 10 mg tablet Take 1 Tablet by mouth daily. 12/27/2023 apixaban (ELIQUIS) 5 mg tablet Take 1 [...] unit) tablet Take 2 Tablets by mouth. 01/14/2024 dilTIAZem (CARDIZEM CD) 120 mg capsule Take 1 Capsule by mouth daily. 30 Capsule 12/24/2023 DULoxetine (CYMBALTA) 20 mg delayed release capsule Take 1 Capsule by mouth 2 times daily. HYDROmorphone (DILAUDID) 2 mg tablet Take 2 Tablets by mouth every 4 hours as needed. insulin aspart U-100 (NOVOLOG FLEXPEN) 100 unit/mL (3 mL) injectable pen Inject into the skin 3 times daily with meals. Per sliding scale insulin glargine 100 unit/mL (3 mL) injection pen Inject 10 Units into the skin 2 times daily. 10 u after dialysis around 11am and 10 u at bedtime, around 10 pm insulin pen needles 32G x 5/32 Brand: [employer] Ultra Fine Anny. ISS TID and levemir once daily 100 Each 11 12/24/2023 pantoprazole (PROTONIX) 40 mg tablet Take 1 Tablet by mouth daily. polyethylene glycol 3350 (MIRALAX) 17 gram packet Take 17 g by mouth 2 times daily. pregabalin (LYRICA) 100 mg capsule Take 1 Capsule by mouth 2 times daily. 1 tab in the morning, 2 tabs at night senna-docusate (SENNA PLUS) 8.6-50 mg per tablet Take 1 Tablet by mouth daily. tiZANidine (ZANAFLEX) 4 mg tablet Take 1 Tablet by mouth every 8 hours as needed. famotidine (PEPCID) 40 mg tablet Take 1 Tablet by mouth daily. 06/19/20 24 fluticasone propionate (FLOVENT) 110 mcg/actuation inhaler Inhale 1 Puff as directed 2 times daily. 06/19/20 24 hydrOXYzine (ATARAX) 25 mg tablet Take 1 Tablet by mouth daily as needed for Anxiety. 06/19/20 24 insulin lispro (HUMALOG) 100 unit/mL vial Inject into the skin 3 times daily before meals. 0-8 units subcutaneous q4hrs 10/26/19 25 lisinopriL (PRINIVIL) 10 mg tablet Take 1 Tablet by mouth daily. 06/19/20 24 multivitamin (NEPHROVITE) 0.8 mg tablet Take 1 Tablet by mouth at bedtime. 06/19/20 nicotine (NICODERM CQ) 21 mg/[address] 1 Patch onto the skin daily. 06/19/20 24 oxyCODONE (ROXICODONE) 5 mg immediate release tablet Take 1 Tablet by mouth every 6 hours as needed for Pain. 01/14/2024 06/19/20 24 sevelamer carbonate (RENVELA) 800 mg tablet Take 2 Tablets by mouth 3 times daily with meals. 540 Tablet 3 05/01/2024 07/07/20 24 sildenafiL (REVATIO) 20 mg tablet Take 1 Tablet by mouth if needed. 06/19/20 24 sodium zirconium cyclosilicate (LOKELMA) 10 gram powder in packet Take 10 g by mouth daily. 30 Packet 11 05/22/2024 06/19/20 24 documented as of this encounter Discharge Disposition Disposition Code Departure Means Destination Comment s [place] [facility] [place] documented in this encounter Progress Notes * Mirian Ruiz PA-C - 05/31/2024 2388 EDT DIALYSIS PROVIDER TRANSFER NOTE See Discharge Summary and Discharge Med List in Epic Chief Complaint Upon Admit/Transfer: Acute dyspnea Hospitalization Notable For: Uneventful HD session. Pulmonary edema noted on chest x-ray. Discharge Diagnosis: Acute hypoxic respiratory failure Follow Up Plan: Continue HD three times weekly Changes Made to Dialysis Orders: Dry weight reduced per post weights Therapy Plan Updated: Yes Antibiotics: None Anticoagulants: Apixaban Immunosuppressants: None Mirian Ruiz PA-C [facility] Nephrology Acute Dialysis [place] [facility] * Tom Chapa RN - 05/31/2024 1808 EDT Dialysis Program Nursing Transfer Note Fellow responsible: Mirian PALEMR Diagnosis: ESRD on HD History: Patient was directly admitted from outside ED with acute hypoxic respiratory failure. uspected that the etiology of his acute onset shortness of breath was likely his atrial fibrillation, as dyspnea resolved spontaneously once A-fib was controlled with diltiazem. On 05/31/2024 he underwent hemodialysis. He was stable following dialysis and was discharged with no changes to his home medications. Long-term Access Plan: AVF URR Completed prior to transfer? NA HD Orders Updated: (ETW, Heparin etc) DW reduced. See transfer order Antibiotics ordered: NO Follow-up Plan to Care: Treatment plan includes dialysis three times weekly and IUF as needed Report called to: VIDYA Pettit RN 06/02/2024 7:17 * Marv Florence RN - 05/31/2024 1721 EDT Nursing Discharge Note D: Patient noted with discharge orders to: home. A: Prescriptions e-scripted. Reviewed discharge instructions and prescriptions with Patient IV d/c'd. Belongings collected and sent home with patient. R: Patient and Family verbalized understanding of discharge instructions and denied further questions. MARV FLORENCE RN 05/31/2024 17:21 * Kayleigh Singh - 05/31/2024 1628 EDT CM Discharge Note CASE MANAGEMENT DISCHARGE NOTE DISCHARGE DATE/TIME: 05/31/24 DESTINATION: home (If discharging to [facility]) COVID swab ordered and completed: na TRANSPORTATION: [facility] [phone] ACCEPTING MD AND NUMBER: na RN REPORT/UNIT: na HIDE CURER/CHARGE/MD NOTIFIED (Y/N): Y FORMS: (Acute to acute, COLST, MOLST, SCARLETT, Screen, PASRR, Ambulance): na IM SIGNED (Y/NA): Y HOME HEALTH: Resuming ongoing HH from [facility] [place], PT andSN (wound care) DME: na PHARMACY/PRESCRIPTIONS: ACC MEDS TO BEDS UTILIZED : YES Patient and/or family who participated in discharge plan: patient [employer] Epic chat preferred. 05/31/2024 16:43 * Mirian Ruiz PA-C - 05/31/2024 1128 EDT PROCEDURE NOTE: HEMODIALYSIS [facility] NEPHROLOGY CONSULT SERVICE Please notify the Electrician [employer] Kiel Powers from [facility] 4 Acute Dialysis in advance of tentative discharge date to confirm capacity for transfer back to outpatient dialysis unit. Code Status Full Code Admit Date 05/30/2024 Reason for Evaluation Hemodialysis for ESRD PLAN & RECOMMENDATIONS Lab Results Component Value Date NA 135 (L) 05/31/2024 K 5.0 05/31/2024 CL 96 05/31/2024 CO2 25 05/31/2024 MG 2.5 05/01/2024 Lab Results Component Value Date PUR 05/29/2024 Comment: PRE BUN got canceled. Reduction rate not calculated. NOTE: Reference range not established for Urea Reduction Rate. BUNPRE 59 (H) 05/01/2024 BUNPOST 19 05/29/2024 #ESRD - Fluid Restriction 1.5 L fluid restriction every 24 hours - Renal diet restrictions - Electrolytes q dialysis or more frequently per primary team - Mild hyponatremia to be managed via hemodialysis - Next Treatment: 06/02/24 Lab Results Component Value Date WBC 7.49 05/31/2024 RBC 3.81 (L) 05/31/2024 HGB 10.3 (L) 05/31/2024 HCT 32.7 (L) 05/31/2024 MCV 86 05/31/2024 MCH 27.0 (L) 05/31/2024 MCHC 31.5 (L) 05/31/2024 RDWCV 16.5 (H) 05/31/2024 RDWSD 52.8 (H) 05/31/2024 PLT 276 05/31/2024 MPV 11.0 05/31/2024 Lab Results Component Value Date [id number] 607 10/27/2023 LABIRON 17 05/01/2024 FERRITIN 805 (H) 05/01/2024 #Anemia of CKD - GEORGE: Shep 4 PA will manage with pharmacy - CBC at least weekly on or for dialysis purposes - Continue epogen 12,000 units with dialysis #Infection: Concern for PNA at OSH, but less concern for that upon transfer. Not on antibiotics currently. 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 male with a past medical history of ESRD r/t T2DM on maintenance hemodialysis since 02/14/2019 who was admitted with acute hypoxic respiratory failure. Treatment plan includes dialysis three times weekly and IUF as needed. Volume status euvolemic; urinary status is oliguric. Gerson Bruner seen and examined during hemodialysis today 05/31/2024. Prior dialysis 48 hours ago on05/29/24; interdialytic loss of 2.5 kg. Ultrafiltration target is 2.5L. Patient stable during treatment; blood pressure was 180/107 and HR was 73 at time of assessment. He feels well today. He reports breathing better without supplemental oxygen. OBJECTIVE Medications: Reviewed Imaging CXR 05/30/24 IMPRESSION Hydrostatic pulmonary edema. Surgeries/Major Invasive Procedures N/A PMH Past Medical History: Diagnosis Date Asthma Mild Diabetes mellitus ([facility]) DM2 Hyperlipidemia Hypertension Stage 3 chronic kidney disease ([facility]) Unsteady gait when walking PSH Past Surgical History: Procedure Laterality Date APPENDECTOMY BACK SURGERY BELOW KNEE AMPUTATION Left 02/21/2024 CHOLECYSTECTOMY DIALYSIS FISTULA CREATION Left SHOULDER SURGERY Mirian Ruiz PA-C 05/31/2024 13:[address] Carlota Jin was on site and available for consultation. * Ngoc Early RN - 05/31/2024 0600 EDT Assumed care of patient at 1900. Patient was on 2L N/C. Denied any shortness of breathe or pain at beginning rounds. Later during night patient was noted very anxious and noted with very jumpy, like restless leg. Patient was endorsing bilateral stump pain and I can't sleep, I feel very restless and anxious. Notified charge nurse and provider of this. Orders were received for pain medication, but an hour later of being medicated with oxycodone, patient was still endorsing leg pain and anxiety and legs still noted jumpy. Informed provider of this and that patient reported I'll try something to help me sleep, because at home I don't sleep well and when I'm in the hospital, it is worse. Ativan and trazodone were ordered, but then the patient finally settled down by the time the orders were placed. Patient slept for about 2 and 1/2 hours then woke up endorsing heartburn and stating I forgot to mention, during the day I take tums with my meals for heartburn. Orders received for tums and protonix. Patient stated after this, I don't know if I'll be able to go back to sleep now. Made patient aware of trazodone order and checked with provider if it was still ok to give at this time of the morning and provider gave the ok. During the last rounds around 0600, patient was sating at 87% on 2L. Increased O2 to 4L and awakened patient to assess status and noted groggy but responding appropriately. Patient is aware of dialysis for today and requesting cup of coffee. Report given to oncoming nurse. * Artemio Warner, RT - 05/31/2024 0032 EDT Respiratory Consult/Progress Note Indications for Respiratory therapy: Initial respiratory care consult Data Vitals: Heart Rate: 82 BPM, Resp: 20, SpO2: 92 % FIO2/O2 Device: O2 Flow Rate (L/min): 2 l/min, , O2 Device: Nasal cannula, RT Orders: Initial respiratory care consult Protocol Scoring: Bronchodilator/Inhalation Therapy Frequency Bronchodilator - Clinical Indications: History of bronchospasm Breath Sounds: Any abnormal BS decreased Response: Mild response, increase subjective per STRATEGY INTERN Pulse: <100 Resp Rate: 18-25 SOB: None Total Score: 3 Comment:: PRN Frequency Based On Total Score: 0-4 = PRN 5-7 = QID 8-10 = Q4H 11-12 = Q2H Airway Clearance Therapy Frequency Airway Clearance - Clinical Indications: No clinical indications Breath Sounds: Clear / diminished Sputum: Small (tsp) / None Consistency: None Cough Effort: Strong/ non-productive Color: None Total Score: 0 Comment: not indicated at this time Frequency Based On Total Score: 0-3 = PRN 4-6 = QID and PRN 7-9 = Q4H and PRN 10-11 = Q2H and PRN Hyperinflation Therapy Frequency Hyperinflation - Clinical Indications: No clinical indications Breath Sounds: Other Surgery: No X-Ray / Atelectasis: No O2 Requirements: 0-2 L above baseline Mobility Status: Mobile / at baseline Total: 2 Comment: not indicated at this time Frequency Based On Total Score: 0-3 = PRN 4-6 = QID and PRN 7-9 = Q4H and PRN 10-12 = Q2H and PRN Action/Events Respiratory events; Initial respiratory care consult done. Pt states that he has a Hx asthma and uses a PRN albuterol inhaler at home. Pt able to use inhaler independently. Pt also states that he does not have a Hx copd, juan, or home O2 usage. Response/Results Weaning and Toleration of treatments; Pt currently on 2 LPM NC RT THEODORA 05/31/24 * Natalie Fonseca RN - 05/30/2024 1839 EDT Images from the original note were not included. FOUR EYES SKIN ASSESSMENT Four Eyes skin assessment was performed on admission to the unit by Natalie Fonseca RN and Fiona Hendrickson RN. Patient has the following devices at the time of this assessment: BP cuff, Peripheral IV, O2 sat probe, and Oxygen tubing . Device related pressure injury present? No Areas of concern: Fill in detail for areas of concern [] Occiput [] Nose [x] Ear: scab to L ear [] Lip [] Scapula [] Spinous process [] Shoulder [] Elbow [] Iliac crest [x] Sacrum/coccyx: blanchable redness to sacrum [] Ischial tuberosity [] Trochanter [] Knee [] Malleolus [] Heel [] Toe [x] Other: R AKA incision site, L AKA healed incision, L AV fistula Last Miller Score: 18 Instructions: Add LDA for any identified wounds Add Bunch image for any suspected PI or non surgical wounds Order wound consult if suspected PI identified If Miller is < or = to 16, initiate Pressure Injury Prevention Bundle ([id number]). 05/30/2024 18:39 documented in this encounter H&P Notes * Twila Robin DO - 05/30/2024 1928 EDT Hospital Medicine History & Physical Service Date: 05/30/2024 Admit Date: 05/30/24 Primary Care Provider: Ken Greer Chief Complaint: Acute dyspnea HPI Gerson Bruner is a 58 y.o. male with a PMH of paroxysmal A-fib (on diltiazem, carvedilol, and apixaban), ESRD (on HD M/W/F), insulin-dependent T2DM, PAD (s/p BL BKAs ~2023), HTN, HLD, Hx of TIA ~2018, anxiety disorder, and current tobacco use (25+ pack-years). Presents as a direct admit from [facility] ED for c/o dyspnea shortly after HD session on 05/29/24. There is concern f or new AHRF and recurrent atrial fib/flutter. Per chart review (including transfer papers), pt has not missed any recent HD sessions at [facility] facility, and he completed the most recent session yesterday, 05/29. Reportedly 4L of fluid wastaken off. Shortly after finishing, he apparently became tachycardic to 140s, which was read as atrial flutter on EKG. Improved to SR in 80s on diltiazem bolus -> gtt. At the outside ED, pt had a 5-beat asymptomatic run of NSVT. Also had a BG down to 30 this AM, which improved s/p D50 (his last dose of insulin was his glargine last night). Course is further complicated by this new AHRF, with SpO2 down to mid-80s on RA, requiring 2-3L NC to maintain SpO2 >90%. Pt is directly admitted from the outside ED because he is due for next HD session tomorrow, 05/31. Evaluated at wards bedside. His dyspnea is much improved, and he says I could probably take this thing out of my nose now. C/o lingering RLE pain at the BKA site. Otherwise denies fever, chills, ligh theadedness, headache, chest pain, palpitations, cough, abdominal pain, or diarrhea. Review of Systems A complete 10 point ROS was performed and pertinent positive and negative findings listed in HPI, otherwise negative. History PMH PSH Past Medical History: Diagnosis Date Asthma Mild Diabetes mellitus (HCC-CMS) DM2 Hyperlipidemia Hypertension Stage 3 chronic kidney disease ([facility]) Unsteady gait when walking Past Surgical History: Procedure Laterality Date APPENDECTOMY BACK SURGERY BELOW KNEE AMPUTATION Left 02/21/2024 CHOLECYSTECTOMY DIALYSIS FISTULA CREATION Left SHOULDER SURGERY Social History Family History Social History Tobacco Use Smoking status: Every Day Current packs/day: 1.00 Average packs/day: 1 pack/day for 25.6 years (25.6 ttl pk-yrs) Types: Cigarettes Start date: 1998 Smokeless tobacco: Never Substance Use Topics Alcohol use: Yes Comment: Socially Family History Problem Relation Age of Onset Hypertension Maternal Grandmother Hypertension Maternal Grandfather Glaucoma Neg Hx Cataract Neg Hx Macular Degeneration Neg Hx Retinal Detachment Neg Hx Medications Current Facility-Administered Medications: [START ON 05/31/2024] amLODIPine (NORVASC) tablet 10 mg, 10 mg, oral, DAILY, Twila Robin DO apixaban (ELIQUIS) tablet 5 mg, 5 mg, oral, BID, Twila Robin DO [START ON 05/31/2024] aspirin chewable tablet 81 mg, 81 mg, oral, DAILY, Twila Robin DO [START ON 05/31/2024] atorvastatin (LIPITOR) tablet 40 mg, 40 mg, oral, DAILY, Twila Robin DO carvediloL (COREG) tablet 12.5 mg, 12.5 mg, oral, BID (BREAKFAST/DINNER), Isaac Rodriguez MD MPH [START ON 05/31/2024] dilTIAZem (CARDIZEM CD) ER capsule 120 mg, 120 mg, oral, DAILY, Twila Robin DO DULoxetine (CYMBALTA) delayed release capsule 20 mg, 20 mg, oral, BID, Isaac Rodriguez MD MPH lidocaine (PF) 10 mg/mL (1 %) injection 2 mg, 2 mg, intradermal, PRN, Jayy Gilliland MD multivitamin (NEPHROVITE) 0.8 mg tablet 1 Tablet, 1 Tablet, oral, QHS, Twila Robin DO polyethylene glycol 3350 (MIRALAX) packet 17 g, 17 g, oral, BID, Twila Robin DO pregabalin (LYRICA) capsule 100 mg, 100 mg, oral, BID, Sharda, Mattson, DO senna (SENOKOT) tablet 1 Tablet, 1 Tablet, oral, QHS, Sharda, Twila, [START ON 05/31/2024] sevelamer carbonate (RENVELA) tablet 1,600 mg, 1,600 mg, oral, TID WC, Twila Robin, DO Allergies Allergies Allergen Reactions Gabapentin Swelling Other Reaction(s): ANKLE EDEMA Penicillins Other (See Comments) Patient reports this occurred during childhood so he does not remember what happened Pregabalin Other reaction(s): Unsure Sertraline Other reaction(s): Unsure Clindamycin Hives and Swelling Medications Prior to Admission Medication Sig acetaminophen (TYLENOL) 325 mg tablet Take 2 Tablets by mouth every 6 hours. (Patient taking differently: Take 500 mg by mouth every 6 hours. 2 po q6hrs) albuterol 90 mcg/actuation HFA aerosol inhaler inhaler Inhale 2 Puffs as directed every 4 hours. (Patient not taking: Reported on 05/01/2024) amLODIPine (NORVASC) 10 mg tablet Take 1 [...] by mouth 3 times daily with meals. (Patient not taking: Reported on 05/01/2024) carvediloL (COREG) 12.5 mg tablet Take 1 Tablet by mouth 2 times daily. cholecalciferol, Vitamin D3, 25 mcg (1,000 unit) tablet Take 2 Tablets by mouth. (Patient not taking: Reported on 05/01/2024) dilTIAZem (CARDIZEM CD) 120 mg capsule Take 1 Capsule by mouth daily. DULoxetine (CYMBALTA) 20 mg delayed release capsule Take 1 Capsule by mouth 2 times daily. famotidine (PEPCID) 40 mg tablet Take 1 Tablet by mouth daily. (Patient not taking: Reported on 05/01/2024) fluticasone propionate (FLOVENT) 110 mcg/actuation inhaler Inhale 1 Puff as directed 2 times daily.(Patient not taking: Reported on 05/01/2024) HYDROmorphone (DILAUDID) 2 mg tablet Take 2 Tablets by mouth every 4 hours as needed. Daily Max: 24mg (Patient not taking: Reported on 05/30/2024) hydrOXYzine (ATARAX) 25 mg tablet Take 1 Tablet by mouth daily as needed for Anxiety. (Patient not taking: Reported on 05/01/2024) insulin aspart U-100 (NOVOLOG FLEXPEN) 100 unit/mL (3 mL) injectable pen Inject into the skin 3 times daily with meals. Per sliding scale insulin glargine 100 unit/mL (3 mL) injection pen Inject 23 Units into the skin at bedtime. insulin lispro (HUMALOG) 100 unit/mL vial Inject into the skin 3 times daily before meals. 0-8 units subcutaneous q4hrs insulin pen needles 32G x 532 Brand: rag & bone. ISS TID and levemir once daily lisinopriL (PRINIVIL) 10 mg tablet Take 1 Tablet by mouth daily. (Patient not taking: Reported on 05/30/2024) multivitamin (NEPHROVITE) 0.8 mg tablet Take 1 Tablet by mouth at bedtime. (Patient not taking: Reported on 05/01/2024) nicotine (NICODERM CQ) 21 mg/[address] 1 Patch onto the skin daily. (Patient not taking: Reported on 05/01/2024) oxyCODONE (ROXICODONE) 5 mg immediate release tablet Take 1 Tablet by mouth every 6 hours as neededfor Pain. (Patient not taking: Reported on 04/03/2024) pantoprazole (PROTONIX) 40 mg tablet Take 1 Tablet by mouth daily. polyethylene glycol 3350 (MIRALAX) 17 gram packet Take 17 g by mouth 2 times daily. pregabalin (LYRICA) 100 mg capsule Take 1 Capsule by mouth 2 times daily. After dialysis senna-docusate (SENNA PLUS) 8.6-50 mg per tablet Take 1 Tablet by mouth daily. sevelamer carbonate (RENVELA) 800 mg tablet Take 2 Tablets by mouth 3 times daily with meals. sildenafiL (REVATIO) 20 mg tablet Take 1 Tablet by mouth if needed. (Patient not taking: Reported on 05/01/2024) sodium zirconium cyclosilicate (LOKELMA) 10 gram powder in packet Take 10 g by mouth daily. tiZANidine (ZANAFLEX) 4 mg tablet Take 1 Tablet by mouth every 8 hours as needed. Objective Vitals Temp: [36.7 ??C (98 ??F)-37 ??C (98.6 ??F)] Heart Rate: [80 BPM] BP: (143-196)/(90-113) Resp: [14-20] SpO2: [91 %-95 %] , O2 Flow Rate (L/min): 2 l/min Weight : 79.6 kg (175 lb 8 oz) Body mass index is 25.18 kg/m??. No intake or output data in the 24 hours ending 05/30/242035 Numeric Pain Level (Scale 1-10): 4 Physical Exam General: Middle-aged male lying in bed; In NAD HENT: Normocephalic and atraumatic; Nares patent Eyes: No scleral icterus or conjunctival injection bilaterally; EOMI Cards: RRR, without auscultated murmurs or extra heart sounds Resp: CTAB anteriorly, without auscultated wheezes or crackles; No tachypnea or increased work of breathing on 2L NC Abd: Soft, non-distended, and non-tender in all 4 quadrants Extremities: The RLE BKA site is moist, non-draining, and covered in gauze; The LLE BKA site is dryand closed Skin: No jaundice or pallor; Warm and dry Neuro: [id number]-[id number]; Alert and oriented to person, place, and date Psych: Cooperative; Appropriate mood and affect Labs I have personally reviewed Recent Labs 05/30/241945 WBC 7.90 RBC 3.73* HGB 10.0* HCT 31.3* MCV 84 MCH 26.8* MCHC 31.9* PLT 270 NEUTROABS 4.79 Recent Labs 05/30/241945 NA 135* K 5.0 CL 98 CO2 23 BUN 44* CREATININE 5.92* CALCIUM 8.6 Imaging Results notable for CXR 05/30/24: Hydrostatic pulmonary edema. ECG 05/29/24 from outside facility: Probable atrial flutter @148, with evidence of LAD Assessment/Plan Gerson Bruner is a 58 y.o. male with a PMHx significant for paroxysmal A-fib (on diltiazem and SC heparin), ESRD (on HD M/W/F), insulin-dependent T2DM, and PAD (s/p BL BKAs ~2023). Presents as a direct admit from [facility] ED for c/o dyspnea after his Wednesday, 05/29, HD session. Primarily admitting for diagnosis of AHRF: Acute hypoxic respiratory failure Acute pulmonary edema Ddx: Given symptoms arose after his Wednesday HD session, suspect hypervolemic edema in setting of ESRD (reported 4L taken off then). There are no exam findings like JVD to suggest cardiogenic edema, though given the acute episode of atrial flutter, this may be contributing as well. Given the acuity of the dyspnea and the (-) viral panel, do not suspect infectious etiology. - Pt is already down-titrated to 2L NC. Cont. to wean as tolerated to goal SpO2 88-92%. Reported episode of atrial flutter, currently in NSR Asymptomatic episode of 5-beat NSVT Hx of Paroxysmal A-fib - Cardiac monitoring on telemetry. - Cont. GEAR MACHINE OPERATOR GENERAL carvedilol 12.5 mg BID and diltiazem ER 120mg every day. - Cont. GEAR MACHINE OPERATOR GENERAL apixaban 5mg BID (confirmed this dose with Hoda Bruner, ). ESRD, on HD (//) Tonight's electrolytes are stable with K ~5.0 and Phos ~6.6. - Trend daily BMPs and Phos. - Due for next HD session tomorrow, 05/31. - Restart Nephrovite every day and sevalamer 1600mg TID. - Pt had not started Lokelma [employer] MACHINE OPERATOR GENER[employer] given prohibitive cost; will cont. to hold given stable K. - Renal diet restrictions: 3g-Na, 2g-K, 1g-Phos, 1.5 L-fluids. Asymptomatic episode of hypoglycemia Insulin-dependent T2DM Home regimen: Glargine 23u every day; Aspart SSI; Reported no scheduled Aspart with meals - While in-hospital, will reduce insulin regimen to Glargine 11u every day. - POCT BGs before meals and nightly. - Goal BG 140-180 mg/dL; mealtime aspart SSI to goal. - Will hold off carb-restricted diet given recently decreased PO intake and hypoglycemic episode. Chronic: Hx of PAD, s/p BKAs S/p BKA to LLE ~2023, then to RLE ~2023. - Cont. GEAR MACHINE OPERATOR GENERAL tizanidine 4mg TID PRN for spasms. Anxiety disorder - Cont. GEAR MACHINE OPERATOR GENERAL duloxetine 20mg BID and pregabalin 100mg BID. - reports pt is no longer taking hydroxyzine, but given moderate anxiety, will place PRN [id number]. Essential HTN, currently hypertensive - Hold [employer] MACHINE OPER[employer] amlodipine 10mg every day, while we restart GE[employer] MACHINE OPER[employer] carvedilol and diltiazem as above. May restart pending clinical course. HLD - Cont. GEAR MACHINE OPERATOR GENERAL atorvastatin 40mg every day. Hx of TIA ~2018 - Cont. GEAR MACHINE OPERATOR GENERAL ASA 81 every day. GERD - Cont. GEAR MACHINE OPERATOR GENERAL pantoprazole 40mg every day. Current tobacco smoker, 25+ pack-years - Cont. GEAR MACHINE OPERATOR GENERAL albuterol inhaler PRN Q4h for wheezing. Chronic normocytic anemia 2/2 ESRD, stable - Trend daily CBCs. Checklist: VTE ppx: Pharmacologic Prophylaxis: GEAR MACHINE OPERATOR GENERAL apixaban 5mg BID Diet: Renal (Dialysis) Code Status: Full Code Anticipated Discharge Plan: Home or self care Consults: Nephrology (Dialysis) Admission status Inpatient admission due to anticipated duration of hospitalization is two midnights or greater due to Acute hypoxic respiratory failure 2/2 ESKD. ----- Twila Robin D.O. PGY-1, Internal Medicine Resident 05/30/2024 20:36 [Available via [employer]] Cosigned by Isaac Rodriguez MD MPH at 05/31/2024 6:20 EDT Associated attestation - Isaac Rodriguez MD MPH - 05/31/2024 0620 EDT Attending Attestation I have interviewed and examined the patient. I personally reviewed laboratories studies, radiographic studies, and prior records. I discussed the case with the resident Dr Robin. I agree with the findings and plan of care as documented in the note above. 58M, PMH ESRD, DM, afib on eliquis, presenting as direct admit after having developed acute dyspnea, severe hypoglycemia and afib with RVR after an HD session on Wednesday. Initial workup at [facility] suggestyive of CAP and started on abx, also received multiple doses of IV diltiazem and diltiazemdrip with improvement of afib, and then subsequently transferred to [facility] given inability to provide HD at [facility]. We believe PNA less likely for a variety of reasons outlined below, and held off on further abx, would consider reaching out to [facility] to determine results of blood culturedata for confirmation and would have low threshold to resume abx with any evidence of cough or fever or leukcoytosis. Isaac Rodriguez MD MPH 05/30/24 7pm documented in this encounter Consult Notes * Yaritza Delcid MD - 05/30/2024 0957 EDT Hospital Acceptance Note: 58 year old male with PMHx AF, ESRD (MWF at [facility]), T2DM, PAD, underwent uncomplicated HD yesterday as scheduled. Shortly after finishing HD run, patient became tachycardic in 140's with tele/EKG c/w atrial flutter, responded to dilt gtt which has been off since ~midnight. Pt SR 80's since then. ED course further c/b hypoglycemia to 30's (last insulin 730pm the night prior), a 6 beat run of NSVT, and most pertinentely, new AHRF requiring 2-3 L to maintain SpO2 >90% (dips to mid 80's with attempted weaning). Pt has been at [facility] ED for 22 hours, and they do not have inpatient HD. Warrants admission primarily for ongoing AHRF. CXR reportedly with diffuse GGO. Otherwise appears euvolemic per ED provider, and notably had 4 L off in HD yesterday, with no recently missed HD session. No cough, fever. - Objective data: last BP 190/110, HR 8-, RR 18, SpO2 92% 3 L NC. Baseline BMP for patient. No WBC count. Hgb nml. COVID/Flu/RSV negative Plan: - Given that he has been admitted to [facility] several times in the past, and that is his preference, [facility] has already reached out to them and they are at capacity. - Warrants inpatient admission at a facility that can accommodate his HD. Accepted for urgent transfer - add-on expanded respiratory viral panel, blood cultures. Please page admitting hospitalist when patient arrives. Yaritza Delcid MD Internal Medicine Epic Message first, pager [phone] (via PAS) documented in this encounter Miscellaneous Notes * Plan of Care - Arianna Patel RN - 05/31/2024 1534 EDT Problem: HEMODIALYSIS Goal: Hemodialysis Care Needs Are Met Outcome: Ongoing Dialysis Program Nursing Acute-Care Note Kt/V: 1.49 Net fluid removal 3000cc Access: A/V Fistula Access function: Satisfactory Pre Post BP 175/89 189/96 Pulse 73 77 Temp 36.7c 36.7c Weight 78.4kg 75.4kg Method of weight: Mechanical Lift Treatment Comments/Issues/concerns Mental Status Pre: alert and oriented x3 Mental Status Post: alert and oriented x3 Pain score: Pre: 0. Post: 0 Post dialysis system: Few strands Arrive in bed, awake. Medications given: Epogen 89074 units IV Renvela 1600mg PO Aspart 1 unit subcutaneous Able to repositioned self. BS checked. Completed tx, tolerated well, stable for transfer back to his room. Secured chat for report to Marv DASILVA hinojosa 3s as she was on break when pt was sent back to primary unit. Departs in bed with transport, on room air, not in distress. * Diabetes Education - Bria Blake RN - 05/31/2024 1351 EDT Diabetes Nurse Clinician Education Note: last A1C=11.6 10/2023 recommend add on fructosamine Type of DM: T2DM SMBG: tells me he checks fingerstick once a day Medications: Xander is unable to recall his medications or doses reports gives all medications and provides all care. DM Provider: PCP reports endocrinology in past. DM Hx: unable to recall onset of DM Assessment/Education: Met with Xander at his bedside for review of a sick day plan. Xander reports to me that he is very tired as he was up very last 0300. Tells me he doesn't need the oxygen anymore. I feel pretty good I am just really tired. Asked about hypoglycemia events at home. He reports yeah once in a while I guess but I don't feel any of that. Discussed why CGM therapy would be very beneficial for him especially with questionable hypoglycemia unawareness. He reports history of anxiety and this has increased since having bilateral amputations. January was his left BKA and March was the rightBKA. He is off and on sleepy during interview. Tells me his is traveling here now and does all of his injections and BG checking. Encouraged him to check BG 3 -4 times a day and importance of reporting out of range results to PCP. Will apply sick day plan on AVS. Addressed hypoglycemia treatment for patient on dialysis is `100 and needs treatment. Sick Day Management Handout Review: Why worry about sick days? High blood sugars may occur when you're sick or stressed Examples of a sick day Illness Infection Surgery Injury Major emotional stress Sick Day Plan Take your diabetes medication Check your blood sugar before meals and bedtime If you have T1DM, check urine ketones when blood sugar is 250 or higher If you can eat your meals: Every 1-2 hours drink 6-8 ounces of fluids ( sugar and caffeine free) If you are unable to eat your usual meal plan: Replace the carbohydrates in your meal plan by eating small amounts of the list of items provided on the handout. (15 grams of carbohydrate) REST! When to call your health care provider: vomiting or diarrhea that lasts for 4 hours or more, blood sugar values of 250 or greater on 2 or more occasions in one day, a temperature >101, and moderate or large ketones. Blood sugar goals Fastin-130 mg/dl During the day: 100-180 mg/dl Before bed: less than 140 mg/dl Recommendations: Medications TBD by primary team for medication recommendations. Highly recommend OP endocrinology referral and Urgent PCP follow-up . Bria GOMEZ RN CDCES Diabetes Nurse Clinician Contact via secure chat or page documented in this encounter Plan of Treatment Upcoming Encounters Date Type Department Care Team (Late st Contact Info) Description 12/06/2024 6:45 EST Treatment [facility] [place] [address] [place], [place] [phone] Carlota Jin MD 1 [facility], [facility] [address] [place] [phone] 12/08/2024 6:45 EST Treatment [facility] [place] [address] [place], [place] [phone] Carlota Jin MD 1 [facility], [address] [phone] 12/11/2024 6:45 EST Treatment [facility] [place] [address] [place], [place] [phone] Carlota Jin MD [address] [place] [address], [address] [phone] 12/13/2024 6:45 EST Treatment [facility] [place] [address] [place], [place] [phone] Carlota Jin MD [address] [place] [address], [facility] [address] [place] [phone] 12/15/2024 6:45 EST Treatment [facility] [place] [address] [place], [place] [phone] Carlota Jin MD [address] [place] [address], [facility] [address] [place] [phone] 12/18/2024 6:45 EST Treatment [facility] [place] [address] [place], [place] [phone] Carlota Jin MD 1 [facility], [facility] [address] [place] [phone] 12/20/2024 6:45 EST Treatment [facility] [place] [address] [place], [place] [phone] Carlota Jin MD 1 [facility], [facility] [address] [place] [phone] 12/22/2024 6:45 EST Treatment [facility] [place] [address] [place], [place] [phone] Carlota [facility] MD [facility], [facility] [address] [place] [phone] 12/25/2024 6:45 EST Treatment [facility] - [place] [address] [place], [place] [phone] Carlota Jin MD 1 [facility], [address] [phone] 12/27/2024 6:45 EST Treatment [facility] - [place] [address] [place], [place] [phone] Carlota Jin MD 1 [facility], [facility] [address] [place] [phone] 12/29/2024 6:45 EST Treatment [facility] - [place] [address] [place], [place] [phone] Carlota Jin MD 1 [facility], [facility] [address] [place] [phone] 01/01/2025 6:45 EDT Treatment [facility] [place] [address] [place], [place] [phone] Carlota Jin MD 1 [facility], [facility] [address] [place] [phone] 01/03/2025 6:45 EDT Treatment [facility] [place] [address] [place], [place] [phone] Carlota Jin MD 1 [facility], [facility] [address] [place] [phone] 01/05/2025 6:45 EDT Treatment [facility] - [place] [address] [place], [place] [phone] Carlota Jin MD 1 [facility], [address] [phone] 01/08/2025 6:45 EDT Treatment [facility] [place] [address] [place] [address] Carlota Jin MD 1 [facility], [facility] [address] [place] [phone] 01/10/2025 6:45 EDT Treatment [facility] [place] [address] [place], [place] [phone] Carlota Jin MD 1 [facility], [facility] [address] [place] [phone] 01/12/2025 6:45 EDT Treatment [facility] - [place] [address] [place], [place] [phone] Carlota Jin MD 1 [facility], [address] [phone] 01/15/2025 6:45 EDT Treatment [facility] [place] [address] [place], [place] [phone] Carlota Jin MD 1 [facility], [address] [phone] 01/17/2025 6:45 EDT Treatment [facility] - [place] [address] [place], [place] [phone] Carlota Jin MD 1 [facility], [address] [phone] 01/19/2025 6:45 EDT Treatment [facility] - [place] [address] [place], [place] [phone] Carlota Jin MD 1 [facility], [address] [phone] 01/22/2025 6:45 EDT Treatment [facility] [place] [address] [place], [place] [phone] Carlota Jin MD [address] [place] [address], [address] [phone] 01/24/2025 6:45 EDT Treatment [facility] - [place] [address] [place], [place] [phone] Carlota Jin MD 1 [facility] [address] [place] [phone] 01/26/2025 6:45 EDT Treatment [facility] [place] [address] [place], [place] [address] Carlota Jin MD 1 [facility], [facility] [address] [place] [phone] 01/29/2025 6:45 EDT Treatment [facility] [place] [address] [place], [place] [phone] Carlota Jin MD 1 [facility], [facility] [address] [place] [phone] 01/31/2025 6:45 EDT Treatment [facility] - [place] [address] [place], [place] [phone] Carlota Jin MD 1 [facility], [facility] [address] [place] [phone] 02/02/2025 6:45 EDT Treatment [facility] [address] [place], [place] [phone] Carlota Jin MD 1 [facility], [facility] [address] [place] [phone] 02/05/2025 6:45 EDT Treatment [facility] [address] [place], [place] [phone] Carlota Jin MD 1 [facility], [facility] [address] [place] [phone] 02/07/2025 6:45 EDT Treatment [facility] [place] [address] [place], [place] [phone] Carlota Jin MD 1 [facility], [facility] [address] [place] [phone] 02/09/2025 6:45 EDT Treatment [facility] [place] [address] [place], [place] [phone] Carlota Jin MD 1 [facility], [facility] [address] [place] [phone] 02/12/2025 6:45 EDT Treatment [facility] [place] [address] [place], [place] [phone] Carlota Jin MD [address] [place] [address], [facility] [address] [place] [phone] 02/14/2025 6:45 EDT Treatment [facility] [place] [address] [place], [place] [phone] Carlota Jin MD 1 [facility], [facility] [address] [place] [phone] 02/16/2025 6:45 EDT Treatment [facility] [place] [address] [place], [place] [phone] Carlota Jin MD 1 [facility], [facility] [address] [place] [phone] 02/19/2025 6:45 EDT Treatment [facility] [place] [address] [place], [place] [phone] Carlota Jin MD 1 [facility], Level [address] [place] [phone] 02/21/2025 6:45 EDT Treatment [facility] [place] [address] [place], [place] [phone] Carlota Jin MD 1 [facility], [address] [place] [phone] Scheduled Referrals Name Type Priority Associated Diagnoses Order Schedule AMB CONS/FOLLOW UP PRIMARY CARE PHYSICIAN - EXTERNAL Outpatient Referral Routine/Next Available Acute hypoxic respiratory failure ([facility]) [J96.01] ESRD (end stage renal disease) ([facility]) [N18.6] Expected: 06/07/2024 (Approximate), Expires: 05/31/2025 documented as of this encounter Procedures Procedure Name Priority Date/Time Associated Diagnosis Comments POCT GLUCOSE, INTERFACED Routine 05/31/2024 14:37 EDT COMPLETE BLOOD COUNT Routine 05/31/2024 11:33 EDT BASIC METABOLIC PANEL (BMP) Routine 05/31/2024 11:33 EDT POCT GLUCOSE, INTERFACED Routine 05/31/2024 9:33 EDT HEMODIALYSIS Routine 05/31/2024 8:43 EDT ESRD (end stage renal disease) ([facility]) [N18.6] POCT GLUCOSE, INTERFACED Routine 05/30/2024 21:05 EDT SARS COV2, FLU A/B, RSV DETECT BY PCR Routine 05/30/2024 19:57 EDT COMPLETE BLOOD COUNT AND DIFFERENTIAL Routine 05/30/2024 19:46 EDT PHOSPHORUS Add-On 05/30/2024 19:46 EDT BASIC METABOLIC PANEL (BMP) Routine 05/30/2024 19:46 EDT XR CHEST PORTABLE 1 VIEW Routine 05/30/2024 19:44 EDT documented in this encounter Results * (ABNORMAL) POCT GLUCOSE, INTERFACED (05/31/2024 14:37 EDT) Pathologist [facility] Glucose, POC 185(H) 70 - 100 mg/dL 05/31/2024 14:38 EDT [facility] HN LAB POC COMMENT (GLUCOSE) Test Performed by Nursing Services 05/31/2024 14:38 EDT [facility] Blood CAPILLARY BLOOD / Unknown 05/31/2024 14:37 EDT 05/31/2024 14:38 EDT [facility] DO POINT OF CARE TEST ORDERABLES Fi nal Result [facility] [address] [place] [address] * (ABNORMAL) BASIC METABOLIC PANEL (BMP) (05/31/2024 11:33 EDT) Pathologist [facility] Sodium 135(L) 136 - 145 mmol/L 05/31/2024 12:15 [facility] Potassium 5.0 3.5 - 5.0 mmol/L 05/31/2024 12:15 [facility] Chloride 96 96 - 110 mmol/L 05/31/2024 12:15 [facility] CO2 Total 25 22 - 32 mmol/L 05/31/2024 12:15 [facility] Anion Gap 14 5 - 14 mmol/L 05/31/2024 12:15 [facility] Glucose 265(H) 70 - 99 mg/dl 05/31/2024 12:15 [facility] [facility] Calcium 8.9 8.5 - 10.5 mg/dL 05/31/2024 12:15 [facility] BUN 52(H) 10 - 26 mg/dL 05/31/2024 12:15 [facility] Creatinine 7.10(H) 0.66 - 1.25 mg/dL 05/31/2024 12:15 [facility] eGFR 8(L) >60 mL/min/1.73 m2 05/31/2024 12:15 [facility] Blood VENOUS BLOOD / Unknown Venipuncture / Unknown 05/31/2024 11:33 EDT 05/31/2024 11:46 EDT Mattson Sharda DO CHEMISTRY & BLOOD GAS ORDERABLES Final Result Performing Organization Address City/State/[facility] Co de Phone Number [facility] [address] [place] [address] * (ABNORMAL) COMPLETE BLOOD COUNT (05/31/2024 11:33 EDT) WBC 7.49 4.00 - 10.40 K/cmm 05/31/2024 11:54 [facility] RBC 3.81(L) 4.36 - 5.78 M/cmm 05/31/2024 11:54 [facility] Hemoglobin 10.3(L) 13.8 - 17.3 g/dL 05/31/2024 11:54 [facility] HCT 32.7(L) 39.5 - 50.2 % 05/31/2024 11:54 [facility] MCV 86 81 - 95 fL 05/31/2024 11:54 [facility] MCH 27.0(L) 27.6 - 33.0 pg 05/31/2024 11:54 [facility] MCHC 31.5(L) 32.8 - 36.4 g/dL 05/31/2024 11:54 [facility] RDW-CV 16.5(H) <14.2 % 05/31/2024 11:54 [facility] RDW-SD 52.8(H) <46.0 fl 05/31/2024 11:54 EDT [facility] PLT 276 141 - 377 K/cmm 05/31/2024 11:54 EDT [facility] MPV 11.0 9.5 - 12.7 fL 05/31/2024 11:54 EDT [facility] Blood VENOUS BLOOD / Unknown Venipuncture / Unknown 05/31/2024 11:33 EDT 05/31/2024 11:44 EDT us Jayy Gilliland MD HEMATOLOGY & PF4 ORDERABLE S Final Result Performing Organization Address City/[facility]/ZIP Co de Phone Number [facility] [address] [place] [address] * (ABNORMAL) POCT GLUCOSE, INTERFACED (05/31/2024 9:33 EDT) Glucose, POC 249(H) 70 - 100 mg/dL 05/31/2024 9:35 EDT [facility] HN LAB POC COMMENT (GLUCOSE) Test Performed by Nursing Services 05/31/2024 9:35 EDT [facility] Blood CAPILLARY BLOOD / Unknown 05/31/2024 9:33 EDT 05/31/2024 9:35 EDT us Twila Robin DO POINT OF CARE TEST ORDERABLES Fi nal Result Performing Organization Address City/[facility]/ZIP Co de Phone Number [facility] [address] [place] [phone] * (ABNORMAL) POCT GLUCOSE, INTERFACED (05/30/2024 21:05 EDT) Glucose, POC 156(H) 70 - 100 mg/dL 05/30/2024 21:08 EDT [facility] HN LAB POC COMMENT (GLUCOSE) Test Performed by Nursing Services 05/30/2024 21:08 EDT [facility] Blood CAPILLARY BLOOD / Unknown 05/30/2024 21:05 EDT 05/30/2024 21:08 EDT us Twila Robin DO POINT OF CARE TEST ORDERABLES Fi nal Result Performing Organization Address [facility]/ZIP Co de Phone Number [facility] [address] [place] [address] * SARS COV2, FLU A/B, RSV DETECT BY PCR (05/30/2024 19:57 EDT) FLU A RNA Result (FLARES) Negative Negative 05/30/2024 20:50 EDT [facility] FLU B RNA Result (FLBRES) Negative Negative 05/30/2024 20:50 EDT [facility] RSV RNA Result (RSVRES) Negative Negative 05/30/2024 20:50 EDT [facility] COVID-19 rt-PCR Result Negative Negative 05/30/2024 20:50 EDT [facility] Comment: Negative results do not preclude 2019-nCoV infection and should not be used as the sole basis for treatment or other patient management decisions. Negative results must be combined with clinical observations, patient history, and epidemiological information. Performed on the [employer] GeneXpert Instrument Swab NASOPHARYNGEAL STRUCTURE / Unknown Swab / Unknown 05/30/2024 19:57 EDT 05/30/2024 20:01 EDT us Isaac Rodriguez MD MPH MICROBIOLOGY - GENERAL STEF [place] Final Result Performing Organization Address City/[facility]/ZIP Co de Phone Number [facility] [address] [place] [phone] * (ABNORMAL) PHOSPHORUS (05/30/2024 19:46 EDT) Phosphorus 6.6(H) 2.5 - 4.5 mg/dL 05/30/2024 22:02 EDT [facility] Blood VENOUS BLOOD / Unknown Venipuncture / Unknown 05/30/2024 19:46 EDT 05/30/2024 19:53 EDT us Twila Robin DO CHEMISTRY & BLOOD GAS ORDERABLES Final Result [facility] [address] [place] [address] * (ABNORMAL) BASIC METABOLIC PANEL (BMP) (05/30/2024 19:46 EDT) Sodium 135(L) 136 - 145 mmol/L 05/30/2024 20:31 [facility] Potassium 5.0 3.5 - 5.0 mmol/L 05/30/2024 20:31 [facility] Chloride 98 96 - 110 mmol/L 05/30/2024 20:31 [facility] CO2 Total 23 22 - 32 mmol/L 05/30/2024 20:31 [facility] Anion Gap 14 5 - 14 mmol/L 05/30/2024 20:31 [facility] Glucose 145(H) 70 - 99 mg/dl 05/30/2024 20:31 [facility] Calcium 8.6 8.5 - 10.5 mg/dL 05/30/2024 20:31 [facility] BUN 44(H) 10 - 26 mg/dL 05/30/2024 20:31 [facility] Creatinine 5.92(H) 0.66 - 1.25 mg/dL 05/30/2024 20:31 [facility] eGFR 10(L) >60 mL/min/1.73 m2 05/30/2024 20:31 [facility] Blood VENOUS BLOOD / Unknown Venipuncture / Unknown 05/30/2024 19:46 EDT 05/30/2024 19:53 EDT Jayy Gilliland MD CHEMISTRY & BLOOD GAS ORDE VASYL Final Result [facility] [address] [place] [address] * (ABNORMAL) COMPLETE BLOOD COUNT AND DIFFERENTIAL (05/30/2024 19:46 EDT) WBC 7.90 4.00 - 10.40 K/cmm 05/30/2024 20:04 [facility] RBC 3.73(L) 4.36 - 5.78 M/cmm 05/30/2024 20:04 [facility] Hemoglobin 10.0(L) 13.8 - 17.3 g/dL 05/30/2024 20:04 [facility] HCT 31.3(L) 39.5 - 50.2 % 05/30/2024 20:04 [facility] MCV 84 81 - 95 fL 05/30/2024 20:04 [facility] MCH 26.8(L) 27.6 - 33.0 pg 05/30/2024 20:04 [facility] MCHC 31.9(L) 32.8 - 36.4 g/dL 05/30/2024 20:04 [facility] RDW-CV 16.7(H) <14.2 % 05/30/2024 20:04 [facility] RDW-SD 51.5(H) <46.0 fl 05/30/2024 20:04 [facility] PLT 270 141 - 377 K/cmm 05/30/2024 20:04 [facility] MPV 10.3 9.5 - 12.7 fL 05/30/2024 20:04 [facility] % Neutrophils 60.6 % 05/30/2024 20:04 [facility] % Lymphocytes 21.4 % 05/30/2024 20:04 [facility] % Monocytes 11.5 % 05/30/2024 20:04 [facility] % Eosinophils 5.2 % 05/30/2024 20:04 [facility] % Basophils 0.9 % 05/30/2024 20:04 [facility] % Immature Grans 0.4 % 05/30/20 20:04 EDT [facility] Absolute Neutrophils 4.79 2.20 - 8.85 K/cmm 05/30/2024 20:04 EDT [facility] Absolute Lymphocytes 1.69 1.09 - 3.30 K/cmm 05/30/2024 20:04 T [facility] Absolute Monocytes 0.91(H) 0.10 - 0.80 K/cmm 05/30/2024 20:04 EDT [facility] Absolute Eosinophils 0.41 0.03 - 0.61 K/cmm 05/30/2024 20:04 T [facility] ABS Basophils 0.07 0.01 - 0.11 K/cmm 05/30/2024 20:04 T [facility] Absolute Immature Grans 0.03 0.00 - 0.06 K/cmm 05/30/2024 20:04 [facility] Type of Differential: Auto 05/30/2024 20:04 T [facility] Blood VENOUS BLOOD / Unknown Venipuncture / Unknown 05/30/2024 19:46 EDT 05/30/2024 19:53 EDT Jayy Gilliland MD PACKAGES & DNA PROBE ORDER FRANSISCO Final Result [facility] [address], [place] [phone] * XR CHEST PORTABLE 1 VIEW (05/30/2024 19:44 EDT) Anatomical Region Laterality Modality Computed Radiogr aphy 05/30/2024 19:5 5 EDT Impressions 05/30/2024 19:55 EDT Hydrostatic pulmonary edema. [id number] Narrative 05/30/2024 19:55 EDT XR CHEST PORTABLE 1 VIEW ??05/30/2024 7:28 PM Clinical History/comments: new hypoxia Comparison: Radiograph earlier same day. Technique: Single portable AP view of the chest. Findings: Lines/tubes/devices: ??None Lungs: Evidence of interstitial and airspace edema. Pleura: Small pleural effusions. Cardiac and mediastinal contours: Normal. Soft tissues and extrathoracic findings: ??Normal. Bones: Normal. Resulting Agency Comment [id number] Procedure Note Ankur Victoria, DO - 05/30/2024 XR CHEST PORTABLE 1 VIEW 05/30/2024 7:28 PM Clinical History/comments: new hypoxia Comparison: Radiograph earlier same day. Technique: Single portable AP view of the chest. Findings: Lines/tubes/devices: None Lungs: Evidence of interstitial and airspace edema. Pleura: Small pleural effusions. Cardiac and mediastinal contours: Normal. Soft tissues and extrathoracic findings: Normal. Bones: Normal. IMPRESSION Hydrostatic pulmonary edema. [id number] Isaac Rodriguez MD MPH IMG DIAGNOSTIC IMAGING ORDAllison [place] Final Result documented in this encounter Visit Diagnoses Diagnosis Acute hypoxic respiratory failure ([facility])- Primary Acute hypoxic respiratory failure ([facility]) [J96.01] ESRD (end stage renal disease) ([facility]) [N18.6] End stage renal disease Primary hypertension [I10] Unspecified essential hypertension Type 2 diabetes mellitus with other circulatory complication, with long-term current use of insulin ([facility]) [E11.59, Z79.4] Hypoglycemia [E16.2] Hypoglycemia, unspecified Atrial fibrillation and flutter ([facility]) [I48.91, I48.92] Atrial fibrillation ESRD (end stage renal disease) ([facility]) End stage renal disease Atrial fibrillation and flutter ([facility]) Atrial fibrillation Diabetes mellitus ([facility]) Type II or unspecified type diabetes mellitus without mention of complication, not stated as uncontrolled Hypoglycemia Hypoglycemia, unspecified documented in this encounter Admitting Diagnoses Diagnosis Acute hypoxic respiratory failure ([facility]) documented in this encounter Administered Medications Inactive Administered Medications - up to 3 most recent administrations Medication Order MAR Action Action Date Dose Rate Site acetaminophen (TYLENOL) tablet 650 mg 650 mg, oral, EVERY 4 HOURS PRN, Starting on Wed05/31/24 at 0007, Until Wed05/31/24 at 2007, Mild Pain 1-3, Moderate Pain 4-6, Routine albuterol 90 mcg/actuation inhaler 2 Puff 2 Puff, inhalation, EVERY 4 HOURS PRN, Starting on Wed05/30/24 at 2216, Until Wed05/31/24 at 2007, Wheezing, Routine apixaban (ELIQUIS) tablet 5 mg 5 mg, oral, 2 TIMES DAILY, First dose on Wed05/30/24 at 2100, Until Discontinued, Routine Given 05/31/2024 9:47 EDT 5 mg Given 05/30/2024 21:20 EDT 5 mg aspirin chewable tablet 81 mg 81 mg, oral, DAILY, First dose on Wed05/31/24 at 0900, Until Discontinued, Routine Given 05/31/2024 9:47 EDT 81 mg atorvastatin (LIPITOR) tablet 40 mg 40 mg, oral, DAILY, First dose on Wed05/31/24 at 0900, Until Discontinued, Routine Given 05/31/2024 9:48 EDT 40 mg blood thinner patient education booklet 1 Each 1 Each, other, Once (Without Time Specified), 1 dose, Starting on Wed05/30/24 at 2041, Until Wed05/31/24 at 2007, Routine calcium carbonate (TUMS) tablet 500 mg (200 mg elemental calcium) 2 Tablet 2 Tablet, oral, EVERY 6 HOURS PRN, Starting on Wed05/31/24 at 9, Until Wed05/31/24 at 2007, Heartburn, Indigestion, Routine Given 05/31/2024 3:11 EDT 2 Tablets carvediloL (COREG) tablet 12.5 mg 12.5 mg, oral, 2 TIMES DAILY WITH BREAKFAST & DINNER, First dose on Wed05/30/24 at 1945, Until Discontinued, Routine Given 05/31/2024 9:47 EDT 12.5 mg Given 05/30/2024 20:58 EDT 12.5 mg dextrose 50 % solution 12.5 g 12.5 g (25 mL), intravenous, PRN, Starting on Wed05/30/24 at 2038, Until Wed05/31/24 at 2007, Low Blood Sugar, Routine dilTIAZem (CARDIZEM CD) ER capsule 120 mg 120 mg, oral, DAILY, First dose on Wed05/31/24 at 0900, Until Discontinued, Routine Given 05/31/2024 9:47 EDT 120 mg DULoxetine (CYMBALTA) delayed release capsule 20 mg 20 mg, oral, 2 TIMES DAILY, First dose on Wed05/30/24 at 2100, Until Discontinued, Routine Given 05/31/2024 9:48 EDT 20 mg Given 05/30/2024 20:59 EDT 20 mg epoetin ken (EPOGEN) 20,000 unit/2 mL injection 12,000 Units 12,000 Units, intravenous, EVERY MON, WED, FRI (DIALYSIS), First dose on Wed05/31/24 at 1230, Until Discontinued, Routine Given 05/31/2024 14:32 EDT 12,000 Units glucagon injection 1 mg 1 mg, intramuscular, As needed, Starting on Wed05/30/24 at 2039, Until Wed05/31/24 at 2007, Low Blood Sugar, Routine hydrOXYzine (ATARAX) tablet 25 mg 25 mg, oral, 4 TIMES DAILY PRN, Starting on Wed05/30/24 at 2219, Until Wed05/31/24 at 2007, Anxiety, Routine Given 05/30/2024 22:40 EDT 25 mg insulin aspart U-100 (NOVOLOG FLEXPEN) injection 0-11 Units 0-11 Units, subcutaneous, 3 TIMES DAILY WITH MEALS, First dose on Wed05/31/24 at 0800, Until Discontinued, Routine, Indications: type 2 diabetes mellitusIndications:type 2 diabetes mellitus Given 05/31/2024 14:56 EDT 1 Units Given 05/31/2024 9:43 EDT 2 Units insulin glargine injection pen 11 Units 11 Units (rounded from 10.95 Units = 0.15 Units/kg/day ? 73 kg [place] weight), subcutaneous, ONCE DAILY L.A. INSULIN, First dose on Wed05/31/24 at 1000, Until Discontinued, Routine Given 05/31/2024 9:43 EDT 11 Units multivitamin (NEPHROVITE) 0.8 mg tablet 1 Tablet 1 Tablet, oral, AT BEDTIME, First dose on Wed05/30/24 at 2100, Until Discontinued, Routine Given 05/30/2024 21:21 EDT 1 Tablet oxyCODONE (ROXICODONE) immediate release tablet 5 mg 5 mg, oral, EVERY 6 HOURS PRN, Starting on Wed05/31/24 at 0008, Until Wed05/31/24 at 2007, Pain, Severe Pain 7-10, Routine Given 05/31/2024 0:23 EDT 5 mg pantoprazole (PROTONIX) tablet 40 mg 40 mg, oral, DAILY, First dose (after last modification) on Wed05/31/24 at 0315, Until Discontinued, Routine Given 05/31/2024 3:09 EDT 40 mg polyethylene glycol 3350 (MIRALAX) packet 17 g 17 g, oral, 2 TIMES DAILY, First dose on Wed05/30/24 at 2100, Until Discontinued, Routine Given 05/30/2024 21:20 EDT 17 g pregabalin (LYRICA) capsule 100 mg 100 mg, oral, 2 TIMES DAILY, First dose on Wed05/30/24 at 2100, Until Discontinued, Routine Given 05/31/2024 9:47 EDT 100 mg Given 05/30/2024 21:21 EDT 100 mg senna (SENOKOT) tablet 1 Tablet 1 Tablet, oral, AT BEDTIME, First dose on Wed05/30/24 at 2100, Until Discontinued, Routine Given 05/30/2024 21:20 EDT 1 Tablet sevelamer carbonate (RENVELA) tablet 1,600 mg 1,600 mg, oral, 3 TIMES DAILY WITH MEALS, First dose on Wed05/31/24 at 0800, Until Discontinued, Routine Given 05/31/2024 14:42 EDT 1,600 mg Given 05/31/2024 9:47 EDT 1,600 mg sodium chloride (OCEAN) 0.65 % nasal spray 1 [place] 1 [place], nasal - both, EVERY 2 HOURS PRN, Starting on Wed05/31/24 at 0110, Until Wed05/31/24 at 2007, Congestion, Routine tiZANidine (ZANAFLEX) tablet 4 mg 4 mg, oral, 3 TIMES DAILY PRN, Starting on Wed05/30/24 at 2215, Until Wed05/31/24 at 2007, Muscle Spasms, Routine Given 05/31/2024 0:20 EDT 4 mg traZODone (DESYREL) tablet 50 mg 50 mg, oral, AT BEDTIME PRN, Starting on Wed05/31/24 at 0135, Until Wed05/31/24 at 2007, Sleep, Routine Given 05/31/2024 3:26 EDT 50 mg documented in this encounter Active and Recently Administered Medications Times are shown in EDT. Scheduled Medication Order 05/29/2024 05/30/2024 05/31/2024 apixaban (ELIQUIS) tablet 5 mg 5 mg, oral, 2 TIMES DAILY, First dose on Wed05/30/24 at 2100, Until Discontinued, Routine 2119 (Given - Provider: Ngoc Early RN) 0947 (Given - Provider: Marv Florence RN) aspirin chewable tablet 81 mg 81 mg, oral, DAILY, First dose on Wed05/31/24 at 0900, Until Discontinued, Routine 0947 (Given - Provid er: Marv Florence RN) atorvastatin (LIPITOR) tablet 40 mg 40 mg, oral, DAILY, First dose on Wed05/31/24 at 0900, Until Discontinued, Routine 947 (Given - Provid er: Marv Florence RN) blood thinner patient education booklet 1 Each 1 Each, other, Once (Without Time Specified), 1 dose, Starting on Wed05/30/24 at 2041, Until Wed05/31/24 at 2007, Routine carvediloL (COREG) tablet 12.5 mg 12.5 mg, oral, 2 TIMES DAILY WITH BREAKFAST & DINNER, First dose on Wed05/30/24 at 1945, Until Discontinued, Routine 2057 (Given - Provider: Ngoc Early RN) 0947 (Given - Provider: Marv Florence RN)1700 (Canceled Entry - Provider: Batch Job User Admin - Comment: Automatically canceled at discontinue of medication order) dilTIAZem (CARDIZEM CD) ER capsule 120 mg 120 mg, oral, DAILY, First dose on Wed05/31/24 at 0900, Until Discontinued, Routine 0947 (Given - Provid er: Marv Florence RN) DULoxetine (CYMBALTA) delayed release capsule 20 mg 20 mg, oral, 2 TIMES DAILY, First dose on Wed05/30/24 at 2100, Until Discontinued, Routine 2058 (Given - Provider: Ngoc Early RN) 0948 (Given - Provider: Marv Florence RN) epoetin ken (EPOGEN) 20,000 unit/2 mL injection 12,000 Units 12,000 Units, intravenous, EVERY MON, WED, FRI (DIALYSIS), First dose on Wed05/31/24 at 1230, Until Discontinued, Routine 1432 (Given - Provid er: Agatha Paz RN) insulin aspart U-100 (NOVOLOG FLEXPEN) injection 0-11 Units 0-11 Units, subcutaneous, 3 TIMES DAILY WITH MEALS, First dose on Wed05/31/24 at 0800, Until Discontinued, Routine, Indications: type 2 diabetes mellitus 0943 (Given - Provid er: Marv Florence RN)1456 (Given - Provider: Arianna Patel RN)1700 (Canceled Entry - Provider: Batch Job User Admin - Comment: Automatically canceled at discontinue of medication order) insulin glargine injection pen 11 Units 11 Units (rounded from 10.95 Units = 0.15 Units/kg/day ? 73 kg [place] weight), subcutaneous, ONCE DAILY L.A. INSULIN, First dose on Wed05/31/24 at 1000, Until Discontinued, Routine 0943 (Given - Provid er: Marv Florence RN) multivitamin (NEPHROVITE) 0.8 mg tablet 1 Tablet 1 Tablet, oral, AT BEDTIME, First dose on Wed05/30/24 at 2100, Until Discontinued, Routine 2120 (Given - Provider: Ngoc Early RN) pantoprazole (PROTONIX) tablet 40 mg 40 mg, oral, DAILY, First dose (after last modification) on Wed05/31/24 at 0315, Until Discontinued, Routine 0309 (Given - Provid er: Ngoc Early RN) polyethylene glycol 3350 (MIRALAX) packet 17 g 17 g, oral, 2 TIMES DAILY, First dose on Wed05/30/24 at 2100, Until Discontinued, Routine 2119 (Given - Provider: Ngoc Early RN) 0949 (Not Given - Provider: Marv Florence RN - Reason: Patient/family refused) pregabalin (LYRICA) capsule 100 mg 100 mg, oral, 2 TIMES DAILY, First dose on Wed05/30/24 at 2100, Until Discontinued, Routine 2120 (Given - Provider: Ngoc Early RN) 0947 (Given - Provider: Marv Florence RN) senna (SENOKOT) tablet 1 Tablet 1 Tablet, oral, AT BEDTIME, First dose on Wed05/30/24 at 2100, Until Discontinued, Routine 2120 (Given - Provider: Ngoc Early RN) sevelamer carbonate (RENVELA) tablet 1,600 mg 1,600 mg, oral, 3 TIMES DAILY WITH MEALS, First dose on Wed05/31/24 at 0800, Until Discontinued, Routine 0947 (Given - Provid er: Marv Florence RN)1442 (Given - Provider: Arianna Patel RN)1700 (Canceled Entry - Provider: Batch Job User Admin - Comment: Automatically canceled at discontinue of medication order) PRN Medication Order 05/29/2024 05/30/2024 05/31/2024 acetaminophen (TYLENOL) tablet 650 mg 650 mg, oral, EVERY 4 HOURS PRN, Starting on Wed05/31/24 at 000, Until Wed05/31/24 at 2007, Mild Pain 1-3, Moderate Pain 4-6, Routine albuterol 90 mcg/actuation inhaler 2 Puff 2 Puff, inhalation, EVERY 4 HOURS PRN, Starting on Wed05/30/24 at 6, Until Wed05/31/24 at 2007, Wheezing, Routine calcium carbonate (TUMS) tablet 500 mg (200 mg elemental calcium) 2 Tablet 2 Tablet, oral, EVERY 6 HOURS PRN, Starting on Wed05/31/24 at 0259, Until Wed05/31/24 at 2007, Heartburn, Indigestion, Routine 0311 (Given - Provid er: Ngoc Early RN) dextrose 50 % solution 12.5 g 12.5 g (25 mL), intravenous, PRN, Starting on Wed05/30/24 at 2038, Until Wed05/31/24 at 2007, Low Blood Sugar, Routine glucagon injection 1 mg 1 mg, intramuscular, As needed, Starting on Wed05/30/24 at 2038, Until Wed05/31/24 at 2007, Low Blood Sugar, Routine hydrOXYzine (ATARAX) tablet 25 mg 25 mg, oral, 4 TIMES DAILY PRN, Starting on Wed05/30/24 at 2218, Until Wed05/31/24 at 2007, Anxiety, Routine 2240 (Given - Provider: Ngoc Early RN) lidocaine (PF) 10 mg/mL (1 %) injection 2 mg 2 mg, intradermal, PRN, 4 doses, Starting on Wed05/30/24 at 1925, Until Wed05/31/24 at 2007, peripheral intravenous catheter placement, Routine oxyCODONE (ROXICODONE) immediate release tablet 5 mg 5 mg, oral, EVERY 6 HOURS PRN, Starting on Wed05/31/24 at 0008, Until Wed05/31/24 at 2007, Pain, Severe Pain 7-10, Routine 0023 (Given - Provid er: Ngoc Early RN) sodium chloride (OCEAN) 0.65 % nasal spray 1 [place] 1 [place], nasal - both, EVERY 2 HOURS PRN, Starting on Wed05/31/24 at 0110, Until Wed05/31/24 at 2007, Congestion, Routine tiZANidine (ZANAFLEX) tablet 4 mg 4 mg, oral, 3 TIMES DAILY PRN, Starting on Wed05/30/24 at 2215, Until Wed05/31/24 at 2007, Muscle Spasms, Routine 0020 (Given - Provid er: Ngoc Early RN) traZODone (DESYREL) tablet 50 mg 50 mg, oral, AT BEDTIME PRN, Starting on Wed05/31/24 at 0135, Until Wed05/31/24 at 2007, Sleep, Routine 0326 (Given - Provid er: Ngoc Early RN) documented in this encounter Orders Medications Ordered That Davide ht Not Have Been Administered Count Last Ordered Date First Ordered Date acetaminophen (TYLENOL) tablet 650 mg 1 04/2024 calcium carbonate (TUMS) tab let 500 mg (200 mg elemental calcium) 1 Tablet 1 05/31/2024 LORazepam (ATIVAN) injection 1 mg 1 024 LORazepam (ATIVAN) injection 2 mg 1 024 melatonin tablet 3 mg 1 05/31/2024 sodium chloride (OCEAN) 0.65 % nasal spray 1 [place] 1 05/31/2024 albuterol 90 mcg/actuation inhaler 1 Puff 1 05/30/2024 albuterol 90 mcg/actuation inhaler 2 Puff 1 05/30/2024 amLODIPine (NORVASC) tablet 10 mg 1 024 blood thinner patient educat ion booklet 1 Each 1 05/30/2024 dextrose 50 % solution 12.5 g 1 05/30/2024 glucagon injection 1 mg 1 05/30/2024 lidocaine (PF) 10 mg/mL (1 % ) injection 2 mg 1 05/30/2024 pantoprazole (PROTONIX) tablet 40 mg 1 03/2024 Diet Count Last Ordered Date First Orde red Date DISCHARGE DIET 1 05/31/2024 Nursing Count Last Ordered Date First Orde red Date ACTIVITY INSTRUCTIONS 1 05/31/2024 BATHING INSTRUCTIONS 1 05/31/2024 DRIVING INSTRUCTIONS 1 05/31/2024 VTE PHARMACOLOGIC PROPHYLAXI S CURRENTLY ORDERED OR ON ALTERNATIVE THER 1 05/30/2024 IV Count Last Ordered Date First Orde red Date IV REQUEST 2 05/31/2024 05/30/2024 Dialysis Count Last Ordered Date First Orde red Date HEMODIALYSIS 1 05/31/2024 Admission Count Last Ordered Date First Orde red Date ADMIT TO INPATIENT 1 05/30/2024 Discharge Count Last Ordered Date First Orde red Date DISCHARGE PATIENT 1 05/31/2024 Legal Count Last Ordered Date First Orde red Date MISCELLANEOUS DISCHARGE INSTRUCTIONS 1 04/2024 documented in this encounter Additional Health Concerns Infection Onset Date Last Indicated Resolved Time R/O COVID-19 05/30/2024 05/30/2024 05/30/2024 20:5 0 EDT documented as of this encounter Care Teams Design Director Relationship Specialty Start Date End Date Ken Greer MD [address] [place] [address] PCP - General 07/07/23 Kiel Powers Circulation Clerk Nephrology 05/31/24 documented as of this encounter
--- OUTSIDE RECORDS SUMMARY | 2024-12-05 12:02 | XMS_ITS | Encounter Summary ---
Author Organization [facility] Address [address] [place] [address] Care Team Providers Care Plumber Assistant Name Role Phone Ken Greer MD Primary Care Provider [phone] Kiel Powers Unavailable Unavailable Reason for Visit * Episode Based Medications (Routine) - New Request Specialty Diagnoses / Procedures Referred By Nader gardiner Referred To Contact Diagnoses ESRD (end stage renal disease) ([facility]) Carlota Jin MD [address] [place] [address] 2 [place] [address] Phone: tel: fax: [facility] [place] [address] [place] [address] Phone: tel: fax: Referral ID Status Reason Start Date Expiration Date V isits Requested Visits Authorized [id number] New Request 03/17/2024 1 1 Encounter Details Date Type Department Care Team (Latest Contact Info) Description 06/02/2024 6:45 EDT Treatment [facility] [address] [place], [place] [phone] Carlota Jin MD [address] [place] [address], [facility] [address] [place] [address] ESRD (end stage renal disease) ([facility]) (Primary Dx); Anemia of chronic renal failure, unspecified CKD stage; Hypoalbuminemia; Secondary hyperparathyroidism ([facility]) Social History Tobacco Use Types Packs/Day Years Used Date Smoking Tobacco: Every Day Cigarettes 1 26.1 Started: 1998 Smokeless Tobacco: Never Alcohol Use Standard Drinks/Week Comments Yes 0 (1 standard drink = 0.6 oz pur e alcohol) Socially [facility] Utilities Answer Date Recorded [...] in the past 12 m [facility], were you homeless or living in a [...] In the past 12 months has th [employer], gas, oil, or water [facility] threatened to shut off services in [...] - Temperature - - Respiratory Rate 16 06/02/2024 0623 EDT Oxygen Saturation - - Inhaled Oxygen Concentration - - Weight 79.3 kg (174 lb 13.2 oz) 06/02/2024 0623 EDT Height - - Body Mass Index 25.08 12/20/2023 2202 EST documented in this encounter [...] Flowsheet Note - Marcela Cox RN - 06/02/2024 1332 EDT 06/02/24 1045 Post-Hemodialysis Assessment Total Blood Processed (L) 90.54 Liters On Line Clearance: spKt/V 1.66 spKt/V Dialyzer Clearance Lightly streaked Treatment UFR (ml:kg:hr) 13.06 ml:kg:hr Final Critline Profile (%/hr) -4.3 Final Profile Profile B Fluid Removed (L) 4.3 L Post-Dialysis Scale Weight 94.3 kg (207 lb 14.3 oz) Wheelchair Weight 19 kg (41 lb 14.2 oz) Prosthesis Weight 0 kg (0 lb) Post-Treatment Weight (kg) 75.3 Treatment Weight Change (kg) 4 kg Day Target Weight (kg) 75.5 Post Sitting/Lying BP 140/73 Post Sitting/Lying pulse 68 Temp 36.7 ??C (98.1 ??F) Temp src Temporal Minutes Short -244 Post access assessment Bruit present: Yes Thrill Present AVF/AFG Hemostasis achieved Yes Note Patient held for 10mins Orientation Alert and Oriented x3 Yes Time [...] Contact Info) Description 12/06/2024 6:45 EST Treatment [facility] [place] [address] [place], [place] [phone] Carlota Jin MD 1 [facility], [address] [phone] 12/08/2024 6:45 EST Treatment [facility] [address] [place], [place] [phone] Carlota Jin MD [address] [phone] 12/11/2024 6:45 EST Treatment [facility] [place] [address] [place], [place] [phone] Carlota Jin MD [address] [phone] 12/13/2024 6:45 EST Treatment [facility] [place] [address] [place], [place] [phone] Carlota Jin MD [address] [phone] 12/15/2024 6:45 EST Treatment [facility] [address] [place], [place] [phone] Carlota Jin MD [address] [phone] 12/18/2024 6:45 EST Treatment [facility] [place] [address] [place], [place] [phone] Carlota Jin MD 1 [facility] Level [address] [place] [phone] 12/20/2024 6:45 EST Treatment [facility] [place] [address] [place] [address] Carlota Jin MD 1 [facility], [facility] 2 [place] [phone] 12/22/2024 6:45 EST Treatment [facility] [place] [address] [place] [address] Carlota Jin MD 1 [facility], [facility] 2 [place] [phone] 12/25/2024 6:45 EST Treatment [facility] [place] [address] [place] [address] Carlota Jin MD 1 [facility], [facility] [address] [place] [phone] 12/27/2024 6:45 EST Treatment [facility] [place] [address] [place], [place] [phone] Carlota Jin MD 1 [facility], Level [address] [place] [phone] 12/29/2024 6:45 EST Treatment [facility] [place] [address] [place], [place] [phone] Carlota Jin MD 1 [facility], [address] [phone] 01/01/2025 6:45 EDT Treatment [facility] [place] [address] [place], [place] [address] [phone] Carlota Jin MD 1 [facility], [address] [phone] 01/03/2025 6:45 EDT Treatment [facility] [place] [address] [place], [place] [address] Carlota Jin MD 1 [facility], [address] [phone] 01/05/2025 6:45 EDT Treatment [facility] [place] [address] [place] [address] Carlota Jin MD 1 [facility], [address] [phone] 01/08/2025 6:45 EDT Treatment [facility] [place] [address] [place], [place] [phone] Carlota Jin MD [address] [phone] 01/10/2025 6:45 EDT Treatment [facility] [place] [address] [place], [place] [address] Carlota Jin MD 1 [facility], [address] [phone] 01/12/2025 6:45 EDT Treatment [facility] [place] [address] [place], [place] [phone] Carlota Jin MD 1 [facility], [facility] 2 [place] [phone] 01/15/2025 6:45 EDT Treatment [facility] [place] [address] [place], [place] [phone] Carlota Jin MD 1 [facility], [address] [phone] 01/17/2025 6:45 EDT Treatment [facility] [place] [address] [place], [place] [phone] Carlota Jin MD 1 [facility], [facility] 2 [place] [phone] 01/19/2025 6:45 EDT Treatment [facility] [place] [address] [place], [place] [phone] Carlota Jin MD 1 [facility], [facility] 2 [place] [phone] 01/22/2025 6:45 EDT Treatment [facility] [place] [address] [place], [place] [phone] Carlota Jin MD 1 [facility], [facility] 2 [place] [phone] 01/24/2025 6:45 EDT Treatment [facility] [place] [address] [place], [place] [phone] Carlota Jin MD 1 [facility], [facility] 2 [place] [phone] 01/26/2025 6:45 EDT Treatment [facility] [place] [address] [place], [place] [phone] Carlota Jin MD 1 [facility], [address] [phone] 01/29/2025 6:45 EDT Treatment [facility] [place] [address] [place], [place] [phone] Carlota Jin MD 1 [facility], [address] [phone] 01/31/2025 6:45 EDT Treatment [facility] [place] [address] [place], [place] [phone] Carlota Jin MD 1 [facility], [address] [phone] 02/02/2025 6:45 EDT Treatment [facility] [place] [address] [place], [place] [phone] Carlota Jin MD 1 [facility], [facility] 2 [place] [phone] 02/05/2025 6:45 EDT Treatment [facility] [place] [address] [place], [place] [phone] Carlota Jin MD 1 [facility], [facility] 2 [place] [phone] 02/07/2025 6:45 EDT Treatment [facility] [place] [address] [place], [place] [phone] Carlota Jin MD 1 [facility], [facility] 2 [place] [phone] 02/09/2025 6:45 EDT Treatment [facility] [place] [address] [place], [place] [phone] Carlota Jin MD 1 [facility], [facility] [address] [place] [phone] 02/12/2025 6:45 EDT Treatment [facility] [place] [address] [place], [place] [phone] Carlota Jin MD 1 [facility], [facility] 2 [place] [phone] 02/14/2025 6:45 EDT Treatment [facility] [place] [address] [place] [address] Carlota Jin MD 1 [facility], [facility] 2 [place] [phone] 02/16/2025 6:45 EDT Treatment [facility] [place] [address] [place], [place] [phone] Carlota Jin MD 1 [facility], [facility] 2 [place] [phone] 02/19/2025 6:45 EDT Treatment [facility] [place] [address] [place], [place] [phone] Carlota Jin MD 1 [facility], Level [address] [place] [phone] 02/21/2025 6:45 EDT Treatment [facility] [place] [address] [place], [place] [phone] Carlota Jin MD 1 [facility], Level [address] [place] [phone] documented as of this encounter Procedures Procedure Name Priority Date/Time Associated Diagnosis Comments POSTDIALYSIS BUN WITH URR CALCULATION Routine 06/02/2024 11:01 EDT ESRD (end stage renal disease) ([facility]) TRANSFERRIN SATURATION Routine 06/02/2024 6:32 EDT ESRD (end stage renal disease) ([facility]) DIALYSIS ROUTINE - DIALYSIS ONLY (BUN, K, NA, CL, CO2, SANJEEV, ALB, MG, PHOS, ALKP, AST) Routine 06/02/2024 6:32 EDT ESRD (end stage renal disease) ([facility]) PROFILE IRON STUDIES (INCLUDES IRON, IBC, AND FERRITIN) Routine 06/02/2024 6:32 EDT ESRD (end stage renal disease) ([facility]) COMPLETE BLOOD COUNT Routine 06/02/2024 6:32 EDT ESRD (end stage renal disease) ([facility]) FERRITIN Routine 06/02/2024 6:32 EDT ESRD (end stage renal disease) ([facility]) HEMODIALYSIS Routine 06/02/2024 6:23 EDT ESRD (end stage renal disease) ([facility]) documented in this encounter Results * (ABNORMAL) POSTDIALYSIS BUN WITH URR CALCULATION (06/02/2024 11:01 EDT) Pathologist [facility] BUN, Postdialysis 12 10 - 26 mg/dL 06/02/2024 22:31 EDT [facility] Urea Reduction Rate 70.0 Not Established % 06/02/2024 22:31 EDT [facility] Comment: NOTE: Reference range not established for Urea Reduction Rate. BUN 40(H) 10 - 26 mg/dL 06/02/2024 22:31 EDT [facility] Blood VENOUS BLOOD / Unknown Venipuncture / Unknown 06/02/2024 11:01 EDT 06/02/2024 11:01 EDT Skye Gomez TEAROOM HOST CHEMISTRY & BLOOD GAS ORDER FRANSISCO Final Result Performing Organization Address [facility] Co de Phone Number [facility] [address] [place] [address] * FERRITIN (06/02/2024 6:32 EDT) [facility] Ferritin 275 22 - 322 ng/mL 06/02/2024 23:12 EDT [facility] Blood VENOUS BLOOD / Unknown Venipuncture / Unknown 06/02/2024 6:32 EDT 06/02/2024 6:32 EDT Skye Gomez TEAROOM HOST CHEMISTRY & BLOOD GAS ORDER FRANSISCO Final Result Performing Organization Address [facility]/ZIP Co de Phone Number [facility] [address] [place] [address] * (ABNORMAL) TRANSFERRIN SATURATION (06/02/2024 6:32 EDT) Pathologist [facility] Iron 31(L) 49 - 181 ??g/dL 06/02/2024 22:39 EDT [facility] Iron Binding Capacity 192(L) 240 - 450 ??g/dL 06/02/2024 22:39 EDT [facility] Transferrin Saturation 16 15 - 45 % 06/02/2024 22:39 [facility] Blood VENOUS BLOOD / Unknown Venipuncture / Unknown 06/02/2024 6:32 EDT 06/02/2024 6:32 EDT Skye Gomez TEAROOM HOST CHEMISTRY & BLOOD GAS ORDER FRANSISCO Final Result [facility] [address] [place] [phone] * (ABNORMAL) DIALYSIS ROUTINE - DIALYSIS ONLY (BUN, K, NA, CL, CO2, SANJEEV, ALB, MG, PHOS, ALKP, AST) (06/02/2024 6:32 EDT) Sodium 140 136 - 145 mmol/L 06/02/2024 22:29 [facility] Potassium 5.1(H) 3.5 - 5.0 mmol/L 06/02/2024 22:29 [facility] Chloride 100 96 - 110 mmol/L 06/02/2024 22:29 [facility] CO2 Total 24 22 - 32 mmol/L 06/02/2024 22:29 [facility] Calcium 8.3(L) 8.5 - 10.5 mg/dL 06/02/2024 22:29 [facility] Albumin 2.9(L) 3.4 - 4.9 g/dL 06/02/2024 22:29 [facility] Phosphorus 6.5(H) 2.5 - 4.5 mg/dL 06/02/2024 22:29 [facility] Calcium Phos Product 54.0 See Note mg/dL 06/02/2024 22:29 [facility] Comment: NOTE: Reference range not established BUN, Predialysis 40(H) 10 - 26 mg/dL 06/02/2024 22:29 [facility] AST 16 15 - 46 U/L 06/02/2024 22:29 [facility] Alkaline Phosphatase 118 38 - 126 U/L 06/02/2024 22:29 [facility] Magnesium 1.9 1.7 - 2.8 mg/dL 06/02/2024 22:29 [facility] Anion Gap 16(H) 5 - 14 mmol/L 06/02/2024 22:29 [facility] Calculated Calcium 9.2 8.9 - 10.5 mg/dL 06/02/2024 22:29 [facility] Blood VENOUS BLOOD / Unknown Venipuncture / Unknown 06/02/2024 6:32 EDT 06/02/2024 6:32 EDT us Skye Gomez TEAROOM HOST CHEMISTRY & BLOOD GAS ORDER FRANSISCO Final Result [facility] [address] [place] [phone] * (ABNORMAL) COMPLETE BLOOD COUNT (06/02/2024 6:32 EDT) WBC 9.14 4.00 - 10.40 K/cmm 06/02/2024 22:14 [facility] RBC 3.74(L) 4.36 - 5.78 M/cmm 06/02/2024 22:14 [facility] Hemoglobin 10.0(L) 13.8 - 17.3 g/dL 06/02/2024 22:14 [facility] HCT 32.5(L) 39.5 - 50.2 % 06/02/2024 22:14 [facility] MCV 87 81 - 95 fL 06/02/2024 22:14 [facility] MCH 26.7(L) 27.6 - 33.0 pg 06/02/2024 22:14 [facility] MCHC 30.8(L) 32.8 - 36.4 g/dL 06/02/2024 22:14 [facility] RDW-CV 16.7(H) <14.2 % 06/02/2024 22:14 EDT [facility] RDW-SD 53.1(H) <46.0 fl 06/02/2024 22:14 EDT [facility] PLT 280 141 - 377 K/cmm 06/02/2024 22:14 EDT [facility] MPV 10.8 9.5 - 12.7 fL 06/02/2024 22:14 EDT [facility] Blood VENOUS BLOOD / Unknown Venipuncture / Unknown 06/02/2024 6:32 EDT 06/02/2024 6:32 EDT us Skye Gomez NP HEMATOLOGY & PF4 ORDERABLES Final Result [facility] [address] [place] [address] documented in this encounter Visit Diagnoses Diagnosis ESRD (end stage renal disease) ([facility])- Primary End stage renal disease Anemia of chronic renal failure, unspecified CKD stage Hypoalbuminemia Other disorders of plasma protein metabolism Secondary hyperparathyroidism ([facility]) Secondary hyperparathyroidism (of renal origin) documented in this encounter Administered Medications Inactive Administered Medications - up to 3 most recent administrations Medication Order MAR Action Action Date Dose Rate Site acetaminophen (TYLENOL) tablet 650 mg 650 mg, oral, EVERY 4 HOURS PRN, Starting on Wed06/02/24 at 1033, Until Wed06/02/24 at 1533, Pain, Routine, DialysisIndications:ESRD (end stage renal disease) ([facility]) Given 06/02/2024 10:33 EDT 650 mg calcium carbonate (TUMS) tablet 500 mg (200 mg elemental calcium) 2 Tablet 2 Tablet, oral, ONCE IN DIALYSIS, 1 dose, On Wed06/02/24 at 0645, Routine, DialysisIndications:ESRD (end stage renal disease) ([facility]),Secondary hyperparathyroidism ([facility]) Given 06/02/2024 6:35 EDT 2 Tablets epoetin ken (EPOGEN) 20,000 unit/2 mL injection 12,000 Units 12,000 Units, intravenous, ONCE IN DIALYSIS, 1 dose, On Wed06/02/24 at 0645, Routine, DialysisIndications:ESRD (end stage renal disease) ([facility]),Anemia of chronic renal failure, unspecified CKD stage Given 06/02/2024 6:47 EDT 12,000 Units heparin injection 7,000 Units 7,000 Units, intravenous, ONCE IN DIALYSIS, 1 dose, On Wed06/02/24 at 0645, Routine, Dialysis, Now x1 bolus 3400 units to be given at the beginning of dialysis 900 units/hour to be given over the course of dialysis (7000 units total). Stop 1 hour prior to end of treatment. To be administered per Policy [id number].Indications:ESRD (end stage renal disease) ([facility]) Given 06/02/2024 6:47 EDT 7,000 Units LiquaCel liquid protein liquid 30 mL 30 mL, oral, ONCE IN DIALYSIS, 1 dose, On Wed06/02/24 at 0645, Patient's flavor preference: either, RoutineIndications:ESRD (end stage renal disease) ([facility]),Hypoalbuminemia Given 06/02/2024 6:35 EDT 30 mL documented in this encounter Orders Dialysis Count Last Ordered Date First Orde red Date HEMODIALYSIS 1 06/02/2024 documented in this encounter Care Teams Plumber Assistant Relationship Specialty Start Date End Date Ken Greer MD [address] [place] [address] PCP - General 07/07/23 Kiel Powers Clinical Product Manager Nephrology 05/31/24 documented as of this encounter
--- OUTSIDE RECORDS SUMMARY | 2024-12-05 12:02 | XMS_ITS | Encounter Summary ---
Author Organization [facility] Address [address] [place] [address] Care Team Providers Care Deployment Engineer Name Role Phone Ken Greer MD Primary Care Provider [phone] Kiel Powres Unavailable Unavailable Encounter Details Date Type Department Care Team (Late st Contact Info) Description 06/05/2024 Documentation Visit [facility] [address] [place], [place] [id number] Marcela Cox, RN Social History Tobacco Use Types Packs/Day Years Used Date Smoking Tobacco: Every Day Cigarettes 1 26.1 Started: 1998 Smokeless Tobacco: Never Alcohol Use Standard Drinks/Week Comments Yes 0 (1 standard drink = 0.6 oz pur e alcohol) Socially [facility] Utilities Answer Date Recorded In the past [...] time in the past 12 m [facility], were you homeless or living [...] your living situation today? I have a [facility] place to live 05/30/2024 Think [...] Progress Notes * Marcela Cox RN - 06/05/2024 0657 EDT 06/05/24 6:58 [facility] RECONCILI[facility] Medication review of home medications (prescriptions, [id number], herbals, vitamin/mineral/dietary (nutritional) supplements, medical marijuana, and recreational) was completed through: Patient hospital discharge medication reconciliation list reviewed with patient/caregiver. Current Medications Current Outpatient Medications Medication acetaminophen [...] DULoxetine (CYMBALTA) 20 mg delayed release capsule famotidine (PEPCID) 40 mg tablet fluticasone propionate (FLOVENT) 110 mcg/actuation inhaler HYDROmorphone (DILAUDID) 2 mg tablet hydrOXYzine (ATARAX) 25 mg tablet insulin aspart U-100 (NOVOLOG FLEXPEN) 100 unit/mL (3 mL) injectable pen insulin glargine 100 unit/mL (3 mL) injection pen insulin lispro (HUMALOG) 100 unit/mL vial insulin pen needles 32G x 5/32 lisinopriL (PRINIVIL) 10 mg tablet multivitamin (NEPHROVITE) 0.8 mg tablet nicotine (NICODERM CQ) 21 mg/24 hr patch oxyCODONE (ROXICODONE) 5 mg immediate release tablet pantoprazole (PROTONIX) 40 mg tablet polyethylene glycol 3350 (MIRALAX) 17 gram packet pregabalin (LYRICA) 100 mg capsule senna-docusate (SENNA PLUS) 8.6-50 mg per tablet sevelamer carbonate (RENVELA) 800 mg tablet sildenafiL (REVATIO) 20 mg tablet sodium zirconium cyclosilicate (LOKELMA) 10 gram powder in packet tiZANidine (ZANAFLEX) 4 mg tablet No current facility-administered medications for this visit. Marcela Cox RN documented in this encounter Plan of Treatment Upcoming Encounters Date Type Department Care Team (Late st Contact Info) Description 12/06/2024 6:45 EST Treatment [facility] [address] [place] [address] Carlota Jin MD 1 [facility], Level [address] [place] [address] 12/08/2024 6:45 EST Treatment [facility] - [place] [address] [place], [place] [id number] Carlota Jin MD 1 [facility], [facility] [address] [place] [phone] 12/11/2024 6:45 EST Treatment [facility] [place] [address] [place], [place] [id number] Carlota Jin MD 1 [facility], [facility] [address] [place] [phone] 12/13/2024 6:45 EST Treatment [facility] - [place] [address] [place], [place] [id number] Carlota Jin MD 1 [facility], [facility] [address] [place] [phone] 12/15/2024 6:45 EST Treatment [facility] [place] [address] [place], [place] [phone] Carlota Jin MD [address] [place] [address], [facility] [address] [place] [phone] 12/18/2024 6:45 EST Treatment [facility] - [place] [address] [place], [place] [id number] Carlota Jin MD 1 [facility], [facility] [address] [place] [phone] 12/20/2024 6:45 EST Treatment [facility] [place] [address] [place], [place] [phone] Carlota Jin MD 1 [facility], Level [address] [place] [phone] 12/22/2024 6:45 EST Treatment [facility] - [place] [address] [place], [place] [address] Carlota Jin MD 1 [facility], [facility] [address] [place] [phone] 12/25/2024 6:45 EST Treatment [facility] [place] [address] [place], [place] [phone] Carlota Jin MD 1 [facility], [facility] [address] [place] [phone] 12/27/2024 6:45 EST Treatment [facility] [place] [address] [place] [address] Carlota Jin MD 1 [facility], [facility] [address] [place] [phone] 12/29/2024 6:45 EST Treatment [facility] [address] [place] [address] Carlota Jin MD 1 [facility], [facility] [address] [place] [phone] 01/01/2025 6:45 EDT Treatment [facility] [address] [place], [place] [phone] Carlota Jin MD 1 [facility], [facility] [address] [place] [phone] 01/03/2025 6:45 EDT Treatment [facility] [place] [address] [place], [place] [phone] Carlota Jin MD 1 [facility], [facility] [address] [place] [phone] 01/05/2025 6:45 EDT Treatment [facility] - [place] [address] [place], [place] [phone] Carlota Jin MD 1 [facility], [facility] [address] [place] [phone] 01/08/2025 6:45 EDT Treatment [facility] [place] [address] [place], [place] [phone] Carlota Jin MD [address] [place] [address], [facility] [address] [place] [phone] 01/10/2025 6:45 EDT Treatment [facility] - [place] [address] [place], [place] [phone] Carlota Jin MD [address] [place] [address], [facility] [address] [place] [phone] 01/12/2025 6:45 EDT Treatment [facility] [place] [address] [place], [place] [phone] Carlota Jin MD 1 [facility], [facility] [address] [place] [phone] 01/15/2025 6:45 EDT Treatment [facility] - [place] [address] [place], [place] [phone] Carlota Jin MD 1 [facility], [facility] [address] [place] [phone] 01/17/2025 6:45 EDT Treatment [facility] - [place] [address] [place], [place] [phone] Carlota Jin MD 1 [facility], [facility] [address] [place] [phone] 01/19/2025 6:45 EDT Treatment [facility] - [place] [address] [place], [place] [phone] Carlota Jin MD 1 [facility], [address] [phone] 01/22/2025 6:45 EDT Treatment [facility] - [place] [address] [place], [place] [phone] Carlota Jin MD 1 [facility], [facility] [address] [place] [phone] 01/24/2025 6:45 EDT Treatment [facility] - [place] [address] [place], [place] [phone] Carlota Jin MD 1 [facility], [facility] [address] [place] [phone] 01/26/2025 6:45 EDT Treatment [facility] [place] [address] [place], [place] [phone] Carlota Jin MD 1 [facility], [facility] [address] [place] [phone] 01/29/2025 6:45 EDT Treatment [facility] [place] [address] [place], [place] [phone] Carlota Jin MD 1 [facility], [facility] [address] [place] [phone] 01/31/2025 6:45 EDT Treatment [facility] [place] [address] [place], [place] [phone] Carlota Jin MD 1 [facility], [facility] [address] [place] [phone] 02/02/2025 6:45 EDT Treatment [facility] [place] [address] [place], [place] [address] Carlota Jin MD 1 [facility], [address] [phone] 02/05/2025 6:45 EDT Treatment [facility] [place] [address] [place], [place] [id number] Carlota Jin MD 1 [facility], [facility] [address] [place] [phone] 02/07/2025 6:45 EDT Treatment [facility] - [place] [address] [place], [place] [phone] Carlota Jin MD 1 [facility], [facility] [address] [place] [phone] 02/09/2025 6:45 EDT Treatment [facility] - [place] [address] [place], [place] [id number] Carlota Jin MD 1 [facility], [facility] [address] [place] [phone] 02/12/2025 6:45 EDT Treatment [facility] [place] [address] [place] [address] Carlota Jin MD 1 [facility], [address] [phone] 02/14/2025 6:45 EDT Treatment [facility] [place] [address] [place], [place] [address] Carlota Jin MD 1 [facility], [address] [phone] 02/16/2025 6:45 EDT Treatment [facility] [place] [address] [place] [address] Carlota Jin MD 1 [facility], [address] [phone] 02/19/2025 6:45 EDT Treatment [facility] [place] [address] [place], [place] [phone] Carlota Jin MD [address] [phone] 02/21/2025 6:45 EDT Treatment [facility] [place] [address] [place], [place] [phone] Carlota Jin MD 1 [facility], [address] [place] [phone] documented as of this encounter Visit Diagnoses Not on filedocumented in this encounter Care Teams Deployment Engineer Relationship Specialty Start Date End Date Ken Greer MD [address] [place] [address] PCP - General 07/07/23 [facility] Ne[facility]rology 05/31/24 documented as of this encounter
--- OUTSIDE RECORDS SUMMARY | 2024-12-05 12:02 | XMS_ITS | Encounter Summary ---
Author Organization [facility] Address [address] [place] [address] Care Team Providers Care Hearing Aid Dispenser Name Role Phone Ken Greer MD Primary Care Provider [phone] Kiel Powers Unavailable Unavailable Reason for Visit * Episode Based Medications (Routine) - New Request Specialty Diagnoses / Procedures Referred By Nader gardiner Referred To Contact Diagnoses ESRD (end stage renal disease) ([facility]) Carlota Jin MD [address] [place] [address] [address] [place] [address] Phone: tel: fax: [facility] [place] [address] [place] [address] Phone: tel: fax: Referral ID Status Reason Start Date Expiration Date V isits Requested Visits Authorized [id number] New Request 03/17/2024 1 1 Encounter Details Date Type Department Care Team (Latest Contact Info) Description 06/14/2024 6:45 EDT Treatment [facility] [address] [place], [place] [phone] Carlota Jin MD [address] [place] [address], [facility] [address] [place] [address] ESRD (end stage renal disease) ([facility]) (Primary Dx); Anemia of chronic renal failure, unspecified CKD stage; Hypoalbuminemia; Secondary hyperparathyroidism ([facility]) Social History Tobacco Use Types Packs/Day Years Used Date Smoking Tobacco: Every Day Cigarettes 1 26.1 Started: 1998 Smokeless Tobacco: Never Alcohol Use Standard Drinks/Week Comments Yes 0 (1 standard drink = 0.6 oz pur e alcohol) Socially [facility] Utilities Answer Date Recorded In the [...] your living situation today? I have a [facility] place to live 05/30/2024 Think about [...] the past 12 months has th e [email or web address], gas, oil, or water [employer] threatened to shut off services in your [...] - Temperature - - Respiratory Rate 16 06/14/2024 0619 EDT Oxygen Saturation - - Inhaled Oxygen Concentration - - Weight 79.2 kg (174 lb 9.7 oz) 06/14/2024 0624 E DT Height - - Body Mass Index 25.05 12/20/2023 2202 EST documented in this encounter Functional Status * Are you deaf or do you have serious difficulty hearing? Answer Date of Assessment Author Yes 05/30/2024 18:25 DEMARCOT Daria Fonseca RN * Are you blind [...] Flowsheet Note - Marcela Cox RN - 06/14/2024 1338 EDT 06/14/24 1040 Post-Hemodialysis Assessment Total Blood Processed (L) 88.45 Liters On Line Clearance: spKt/V 1.55 spKt/V Dialyzer Clearance Lightly streaked Treatment UFR (ml:kg:hr) 12.79 ml:kg:hr Final Critline Profile (%/hr) -2 Final Profile Profile A Critline refill Negative (33.9/33.7 *7 minute refill) Fluid Removed (L) 4.19 L Post-Dialysis Scale Weight 94.3 kg (207 lb 14.3 oz) Wheelchair Weight 19 kg (41 lb 14.2 oz) Prosthesis Weight 0 kg (0 lb) Post-Treatment Weight (kg) 75.3 Treatment Weight Change (kg) 3.9 kg Day Target Weight (kg) 75.5 Post Sitting/Lying BP (!) 178/94 Post Sitting/Lying pulse 64 Temp 36.3 ??C (97.3 ??F) Temp src Temporal Minutes Short -243 Post access assessment AVF/AFG Hemostasis achieved Yes Note pt held sites for 10 minutes Orientation Alert and Oriented x3 Yes Time Yes Place Yes Person Yes Cooperative Yes Disoriented No Discharge Ambulation Methods Departs via w/c Wrap up items Patient Response to Treatment Tolerated tx well. Removed 4.2L UF goal without difficulty. Comments No issues during tx, no concerns voiced post tx. * Dialysis Comprehensive - Skye Gomez NP - 06/14/2024 0645 EDT Images from the original note were not included. 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 associated with type 2diabetes mellitus ([facility]) ESRD (end stage renal disease) ([facility]) Primary hypertension [I10] Hearing loss Herniation of lumbar intervertebral disc with radiculopathy Hyperlipidemia Proteinuria Right sided numbness Secondary hyperparathyroidism ([facility]) TIA (transient ischemic attack) Type II or unspecified type diabetes mellitus with neurological manifestations, uncontrolled(250.62) Encounter for immunization Hypoalbuminemia Anemia of chronic renal failure Abnormal albumin Cellulitis and abscess of foot, except toes Encounter for therapeutic drug monitoring Diabetic foot infection ([facility]) [E11.628, L08.9] COVID Type 2 diabetes mellitus with chronic kidney disease on chronic dialysis, with long-term current use of insulin ([facility]) [E11.22, N18.6, Z99.2, Z79.4] Anemia of chronic renal failure, stage 5 ([facility]) [N18.5, D63.1] ESRD on hemodialysis ([facility]) Atrial fibrillation and flutter ([facility]) Anemia in chronic kidney disease Anxiety and depression GERD (gastroesophageal reflux disease) Nicotine dependence, cigarettes, uncomplicated Non-healing open wound of heel Olecranon bursitis, right elbow Osteoarthrosis Peripheral neuropathy Retinopathy Sciatica Smoker Type 2 diabetes mellitus with diabetic neuropathy, unspecified ([facility]) Secondary hyperparathyroidism of renal origin ([facility]) Diabetes mellitus ([facility]) Treatment Modality: Patient received information regarding treatment [...] No Listing On-Hold? No No Transplant Center COUNTS INCLUDE 234 BEDS AT [facility] Comments Patient does not meet transplant criteria due to daily smoking cigarettes pt referred to transplant @ [facility] Current Dialysis Prescription: Hemodialysis Therapy Plan [...] with Nursing: Yes Average Interdialytic Fluid Gains: 06/09/2024 6:31 06/09/2024 10:46 06/12/2024 6:19 06/12/2024 6:23 06/12/2024 10:40 06/14/2024 6:19 06/14/2024 6:24 InterDialytic +/- Gain/Loss 3.5 5.6 5.6 3.6 3.6 Wt (pre) 77.6 79.7 79.7 79.2 79.2 Wt (post) 77.6 74.1 75.6 Treatment UFR (ml:kg:hr) 0 ml:kg:hr 11.76 ml:kg:hr 13.23 ml:kg:hr BP (post) 191/93 195/97 195/97 178/89 178/89 Pulse(post) 68 76 76 67 67 Resp (/min) 16 16 16 Volume and blood pressure have been addressed with the following changes: None Consistently able to achieve estimated dry weight? Yes Blood pressure is in range for patient? Yes Any adverse intradialytic symptoms? No Plan: Managed per protocol Physical Exam Constitutional NAD Respiratory: Unlabored Cardiac: deferred Abdomen: Non distended Extremities: Bilateral BKA Hospitalization Hospitalization in Previous 1 Month: Yes Emergency Room Visit in Previous 1 Month: yes Access Management Current LDAs: Hemodialysis Arteriovenous Access 02/13/19 (Active) AV Fistula Present 06/14/24642 Site Assessment Clean;Dry;Intact;Bruit heard;Thrill felt 06/14/24642 Current State Active 06/14/24642 Status Accessed 06/14/24642 Is Maturing N 06/14/24642 Local Anesthetic Topical 06/14/24642 Site Prep Chlorhexidine 06/14/24642 Venous Needle Size 15 G 06/14/24642 Arterial/Generic Needle Size 15 G 06/14/24642 Accessed by: Rhea 06/14/24642 Access Attempts 2 06/14/24642 Dressing Status/Care Clean/Dry/Intact 05/30/242054 Dressing Intervention Other (Comment) 05/30/242054 Patient has [...] mouth 2 times daily., Disp: , Rfl: famotidine (PEPCID) 40 mg tablet, Take 1 Tablet by mouth daily. (Patient not taking: Reported on 05/01/2024), Disp: , Rfl: fluticasone propionate (FLOVENT) 110 mcg/actuation inhaler, Inhale 1 Puff as directed 2 times daily. (Patient not taking: Reported on 05/01/2024), Disp: , Rfl: HYDROmorphone (DILAUDID) 2 mg tablet, Take 2 Tablets by mouth every 4 hours as needed., Disp: , Rfl: hydrOXYzine (ATARAX) 25 mg tablet, Take 1 Tablet by mouth daily as needed for Anxiety. (Patient nottaking: Reported on 05/01/2024), Disp: , Rfl: insulin aspart U-100 (NOVOLOG [...] insulin pen needles 32G x 5/32, Brand: Vitals ([email or web address]) Ultra Fine Anny. ISS TID and levemir once daily, Disp: 100 Each, Rfl: 11 lisinopriL (PRINIVIL) 10 mg tablet, Take 1 Tablet by mouth daily. (Patient not taking: Reported on 05/30/2024), Disp: , Rfl: multivitamin (NEPHROVITE) 0.8 mg tablet, Take 1 Tablet by mouth at bedtime. (Patient not taking: Reported on 05/01/2024), Disp: , Rfl: nicotine (NICODERM CQ) 21 mg/24 hr patch, Place 1 Patch onto the skin daily. (Patient not taking: Reported on 05/01/2024), Disp: , Rfl: oxyCODONE (ROXICODONE) 5 mg immediate release tablet, Take 1 Tablet by mouth every 6 hours as needed for Pain. (Patient not taking: Reported on 04/03/2024), Disp: , Rfl: pantoprazole (PROTONIX) 40 mg tablet, Take 1 [...] with meals., Disp: 540 Tablet, Rfl: 3 sildenafiL (REVATIO) 20 mg tablet, Take 1 Tablet by mouth if needed. (Patient not taking: Reported on 05/01/2024), Disp: , Rfl: sodium zirconium cyclosilicate (LOKELMA) 10 gram powder in packet, Take 10 g by mouth daily. (Patient not taking: Reported on 05/30/2024), Disp: 30 Packet, Rfl: 11 tiZANidine (ZANAFLEX) 4 mg tablet, Take 1 Tablet by mouth every 8 hours as needed., Disp: , Rfl: Adjustment made to home medication: No Dialysis Medication Review Dialysis Plan Order Summary All Current Orders Interval Duration Due Hemodialysis Therapy Plan Dialysis Treatment In-Center Hemodialysis 3 times a week Week of 06/11/2024 Routine, ONE TIME Starting when released Prescribed [...] - UF Profile: None Dialysis Last released: Wed06/14/2024 Oxygen Therapy (Age 2 yrs. to Adult) [...] released Until Discontinued, Pain, Dialysis Last released: Wed06/07/2024 diphenhydrAMINE (BENADRYL) capsule 25 mg PRN PRN [...] endof treatment. To be administered per Policy [id number]. Last released: Wed06/14/2024 sodium chloride 0.9 % BOLUS 100 mL [...] only block results from tests performed at [facility] and does not apply for Miscellaneous Test Order): Immediate Last released: Never HEMODIALYSIS ANEMIA MEDS Medications epoetin ken (EPOGEN) 20,000 unit/2 mL injection 12,000 Units 3 times a week Week of 06/11/2024 12,000 Units, intravenous, ONCE IN DIALYSIS Starting when released, Dialysis Last released: Wed06/14/2024 HEMODIALYSIS NUTRITIONAL SUPPLEMENTS Nutritional Supplements LiquaCel liquid protein liquid 30 mL Every visit Every visit 30 mL, oral, ONCE IN DIALYSIS Starting when released Patient's flavor preference: either Last released: Wed06/14/2024 HEMODIALYSIS CKD MBD MEDS Medications calcium carbonate (TUMS) tablet 500 mg (200 mg elemental calcium) 2 Tablet Every visit Every visit 2 Tablet, oral, ONCE IN DIALYSIS Starting when released, Dialysis Last released: Wed06/14/2024 Adjustment made to dialysis medication: No Laboratory Results Dialysis Adequacy: spKt/V: 1.48 (Calculated from:; BUN Pre-Dialysis: 40 mg/dL at 06/02/2024 11:01; BUN Post-Dialysis: 12mg/dL at 06/02/2024 11:01; Pre-Treatment Weight (kg): 79.3 at 06/02/2024 6:26; Post-Treatment Weight (kg): 75.3 at 06/02/2024 10:45; Duration of Treatment (minutes): 244 minutes at 06/02/2024 10:45) Plan: Continue current dialysis prescription Anemia Management: Lab Results Component Value Date WBC 8.08 06/07/2024 HGB 10.0 (L) 06/07/2024 HGB 10.0 (L) 06/02/2024 HGB 10.3 (L) 05/31/2024 PLT 276 06/07/2024 FOLATE >24.0 10/27/2023 [id number] 607 10/27/2023 FERRITIN 275 06/02/2024 Current GEORGE/Dose: [...] 06/02/2024 Prescribed Potassium Concentrate: HEMODIALYSIS Ordered at: 06/14/24 0619 Dialysate concentrate: Potassium 2 mEq/L Calcium 2.5 mEq/L 06/14/2024 6:19 Last Dialysis Prescription released on: Selected bath: Potassium 2 mEq/L Calcium 2.5 mEq/L sevelamer carbonate - 800 mg sodium zirconium cyclosilicate powder in packet - 10 gram Plan: Managed per protocol Nutrition: Lab Results Component Value Date LABALBU 2.9 (L) 06/02/2024 TP 6.4 12/19/2023 NA 140 06/02/2024 SERGLU 265 (H) 05/31/2024 HGBA1C 11.6 (H) 11/07/2023 Protein Supplements: This patient does not have an active medication from one of the medication groupers. Plan: Managed per protocol Comments: CKD-MB per protocol -Recent hospitalization Hospital Course: Gerson is a pleasant 58-year-old male with a past medical history of paroxysmal A-fib (on diltiazem, carvedilol and apixaban at home), end-stage renal disease (on hemodialysis M/W/F), insulin-dependent type 2 diabetes mellitus, PAD (status post bilateral BKAs in 2023) HTN, HLD, Hx of TIA (2017), anxiety disorder who presented as a direct admit from [facility] ED for dyspnea shortly after hemodialysis [...] with no changes to his home medications. documented in this encounter Plan of Treatment Upcoming Encounters Date Type Department Care Team (Late st Contact Info) Description 12/06/2024 6:45 EST Treatment [facility] [place] [address] [place], [place] [phone] Carlota Jin MD 1 [facility], [facility] [address] [place] [phone] 12/08/2024 6:45 EST Treatment [facility] [place] [address] [place], [place] [phone] Carlota Jin MD 1 [facility], [facility] [address] [place] [phone] 12/11/2024 6:45 EST Treatment [facility] [place] [address] [place] [address] Carlota Jin MD [address] [place] [address], [address] [phone] 12/13/2024 6:45 EST Treatment [facility] [place] [address] [place], [place] [phone] Carlota Jin MD 1 [facility], [facility] [address] [place] [phone] 12/15/2024 6:45 EST Treatment [facility] [place] [address] [place], [place] [phone] Carlota Jin MD 1 [facility], [facility] [address] [place] [phone] 12/18/2024 6:45 EST Treatment [facility] [place] [address] [place], [place] [address] Carlota Jin MD 1 [facility], [facility] [address] [place] [phone] 12/20/2024 6:45 EST Treatment [facility] [place] [address] [place] [address] Carlota Jin MD 1 [facility], [address] [phone] 12/22/2024 6:45 EST Treatment [facility] [place] [address] [place], [place] [phone] Carlota Jin MD 1 [facility], [address] [phone] 12/25/2024 6:45 EST Treatment [facility] [place] [address] [place], [place] [phone] Carlota Jin MD 1 [facility], [address] [phone] 12/27/2024 6:45 EST Treatment [facility] [address] [place], [place] [phone] Carlota Jin MD [address] [phone] 12/29/2024 6:45 EST Treatment [facility] [address] [place], [place] [phone] Carlota Jin MD 1 [facility], [address] [phone] 01/01/2025 6:45 EDT Treatment [facility] [place] [address] [place], [place] [phone] Carlota Jin MD 1 [facility], [facility] [address] [place] [phone] 01/03/2025 6:45 EDT Treatment [facility] [place] [address] [place], [place] [phone] Carlota Jin MD 1 [facility], [facility] [address] [place] [phone] 01/05/2025 6:45 EDT Treatment [facility] [place] [address] [place] [address] Carlota Jin MD 1 [facility], [facility] [address] [place] [phone] 01/08/2025 6:45 EDT Treatment [facility] [place] [address] [place], [place] [phone] Carlota Jin MD 1 [facility], [facility] [address] [place] [phone] 01/10/2025 6:45 EDT Treatment [facility] [place] [address] [place], [place] [phone] Carlota Jin MD 1 [facility], [facility] [address] [place] [phone] 01/12/2025 6:45 EDT Treatment [facility] [place] [address] [place], [place] [address] Carlota Jin MD 1 [facility], [facility] [address] [place] [phone] 01/15/2025 6:45 EDT Treatment [facility] [place] [address] [place], [place] [phone] Carlota Jin MD 1 [facility], [facility] [address] [place] [phone] 01/17/2025 6:45 EDT Treatment [facility] [place] [address] [place], [place] [phone] Carlota Jin MD 1 [facility], [facility] [address] [place] [phone] 01/19/2025 6:45 EDT Treatment [facility] [place] [address] [place], [place] [phone] Carlota Jin MD 1 [facility], [address] [phone] 01/22/2025 6:45 EDT Treatment [facility] [place] [address] [place], [place] [phone] Carlota Jin MD 1 [facility], [facility] [address] [place] [phone] 01/24/2025 6:45 EDT Treatment [facility] [place] [address] [place], [place] [phone] Carlota Jin MD 1 [facility] [address] [place] [phone] 01/26/2025 6:45 EDT Treatment [facility] [place] [address] [place], [place] [address] Carlota Jin MD 1 [facility], [facility] [address] [place] [phone] 01/29/2025 6:45 EDT Treatment [facility] [place] [address] [place], [place] [phone] Carlota Jin MD 1 [facility], [facility] [address] [place] [phone] 01/31/2025 6:45 EDT Treatment [facility] [place] [address] [place], [place] [phone] Carlota Jin MD 1 [facility], [facility] [address] [place] [phone] 02/02/2025 6:45 EDT Treatment [facility] [place] [address] [place] [address] Carlota Jin MD 1 [facility], [facility] [address] [place] [phone] 02/05/2025 6:45 EDT [facility] [address] [place], [place] [phone] Carlota Jin MD 1 [facility], [facility] [address] [place] [phone] 02/07/2025 6:45 EDT Treatment [facility] [place] [address] [place], [place] [phone] Carlota Jin MD 1 [facility], [facility] [address] [place] [phone] 02/09/2025 6:45 EDT Treatment [facility] [place] [address] [place], [place] [phone] Carlota Jin MD 1 [facility], [address] [phone] 02/12/2025 6:45 EDT Treatment [facility] [place] [address] [place], [place] [phone] Carlota Jin MD 1 [facility], [address] [phone] 02/14/2025 6:45 EDT Treatment [facility] [place] [address] [place], [place] [phone] Carlota Jin MD 1 [facility], [facility] [address] [place] [phone] 02/16/2025 6:45 EDT Treatment [facility] [place] [address] [place], [place] [phone] Carlota Jin MD 1 [facility], [facility] [address] [place] [phone] 02/19/2025 6:45 EDT Treatment [facility] [place] [address] [place], [place] [phone] Carlota Jin MD 1 [facility] [address] [place] [phone] 02/21/2025 6:45 EDT Treatment [facility] [place] [address] [place] [address] Carlota Jin MD 1 [facility] [address] [place] [phone] documented as of this encounter Procedures Procedure Name Priority Date/Time Associated Diagnosis Comments COMPLETE BLOOD COUNT Routine 06/14/2024 6:26 EDT ESRD (end stage renal disease) ([facility]) HEMODIALYSIS Routine 06/14/2024 6:19 EDT ESRD (end stage renal disease) ([facility]) documented in this encounter Results * (ABNORMAL) COMPLETE BLOOD COUNT (06/14/2024 6:26 EDT) WBC 9.89 4.00 - 10.40 K/cmm 06/14/2024 21:37 [facility] RBC 4.14(L) 4.36 - 5.78 M/cmm 06/14/2024 21:37 [facility] Hemoglobin 11.1(L) 13.8 - 17.3 g/dL 06/14/2024 21:37 [facility] HCT 35.7(L) 39.5 - 50.2 % 06/14/2024 21:37 [facility] MCV 86 81 - 95 fL 06/14/2024 21:37 [facility] MCH 26.8(L) 27.6 - 33.0 pg 06/14/2024 21:37 [facility] MCHC 31.1(L) 32.8 - 36.4 g/dL 06/14/2024 21:37 [facility] RDW-CV 17.4(H) <14.2 % 06/14/2024 21:[address] [facility] RDW-SD 55.1(H) <46.0 fl 06/14/2024 21:[address] [facility] PLT 247 141 - 377 K/cmm 06/14/2024 21:[address] [facility] MPV 11.3 9.5 - 12.7 fL 06/14/2024 21:[address] [facility] Blood VENOUS BLOOD / Unknown Venipuncture / Unknown 06/14/2024 6:26 EDT 06/14/2024 6:26 EDT us Skye Gomez NP HEMATOLOGY & PF4 ORDERABLES Final Result [facility] [address] [place] [address] documented in this encounter Visit Diagnoses Diagnosis ESRD (end stage renal disease) ([facility])- Primary End stage renal disease Anemia of chronic renal failure, unspecified CKD stage Hypoalbuminemia Other disorders of plasma protein metabolism Secondary hyperparathyroidism ([facility]) Secondary hyperparathyroidism (of renal origin) documented in this encounter Administered Medications Inactive Administered Medications - up to 3 most recent administrations Medication Order MAR Action Action Date Dose Rate Site acetaminophen (TYLENOL) tablet 650 mg 650 mg, oral, EVERY 4 HOURS PRN, Starting on Wed06/14/24 at 1056, Until Wed06/14/24 at 1538, Pain, Routine, DialysisIndications:ESRD (end stage renal disease) ([facility]) Given 06/14/2024 10:56 EDT 650 mg calcium carbonate (TUMS) tablet 500 mg (200 mg elemental calcium) 2 Tablet 2 Tablet, oral, ONCE IN DIALYSIS, 1 dose, On Wed06/14/24 at 0645, Routine, DialysisIndications:ESRD (end stage renal disease) ([facility]),Secondary hyperparathyroidism ([facility]) Given 06/14/2024 6:30 EDT 2 Tablets epoetin ken (EPOGEN) 20,000 unit/2 mL injection 12,000 Units 12,000 Units, intravenous, ONCE IN DIALYSIS, 1 dose, On Wed06/14/24 at 0645, Routine, DialysisIndications:ESRD (end stage renal disease) ([facility]),Anemia of chronic renal failure, unspecified CKD stage Given 06/14/2024 6:44 EDT 12,000 Units heparin injection 7,000 Units 7,000 Units, intravenous, ONCE IN DIALYSIS, 1 dose, On Wed06/14/24 at 0645, Routine, Dialysis, Now x1 bolus 3400 units to be given at the beginning of dialysis 900 units/hour to be given over the course of dialysis (7000 units total). Stop 1 hour prior to end of treatment. To be administered per Policy [id number].Indications:ESRD (end stage renal disease) ([facility]) Given 06/14/2024 6:44 EDT 7,000 Units LiquaCel liquid protein liquid 30 mL 30 mL, oral, ONCE IN DIALYSIS, 1 dose, On Wed06/14/24 at 0645, Patient's flavor preference: either, RoutineIndications:ESRD (end stage renal disease) ([facility]),Hypoalbuminemia Given 06/14/2024 6:30 EDT 30 mL documented in this encounter Orders Dialysis Count Last Ordered Date First Orde red Date HEMODIALYSIS 1 06/14/2024 documented in this encounter Care Teams Hearing Aid Dispenser Relationship Specialty Start Date End Date Ken Greer MD [address] [place] [address] PCP - General 07/07/23 Kiel Powers Metal Wire Technician Nephrology 05/31/24 documented as of this encounter
--- OUTSIDE RECORDS SUMMARY | 2024-12-05 12:02 | XMS_ITS | Encounter Summary ---
Author Organization [facility] Address [address] [place] [address] Care Team Providers Care Transit Authority Police Officer Name Role Phone Ken Greer MD Primary Care Provider [phone] Kiel Powers Unavailable Unavailable Reason for Visit * Episode Based Medications (Routine) - New Request Specialty Diagnoses / Procedures Referred By Nader gardiner Referred To Contact Diagnoses ESRD (end stage renal disease) ([facility]) Carlota Jin MD [address] [place] [address] 2 [place] [address] Phone: tel: fax: [facility] [place] [address] [place] [address] Phone: tel: fax: Referral ID Status Reason Start Date Expiration Date V isits Requested Visits Authorized [id number] New Request 03/17/2024 1 1 Encounter Details Date Type Department Care Team (Latest Contact Info) Description 06/09/2024 6:45 EDT Treatment [facility] [address] [place], [place] [id number] Carlota Jin MD [address] [place] [address], [place] [address] [place] [address] ESRD (end stage renal disease) ([facility]) (Primary Dx); Anemia of chronic renal failure, unspecified CKD stage; Hypoalbuminemia; Secondary hyperparathyroidism ([facility]) Social History Tobacco Use Types [...] any time in the past 12 m [facility], were you homeless or living in [...] the past 12 months has th e [employer], gas, oil, or water [employer] threatened to shut off services in your [...] - Temperature - - Respiratory Rate 16 06/09/2024 0631 EDT Oxygen Saturation - - Inhaled Oxygen Concentration - - Weight 77.6 kg (171 lb 1.2 oz) 06/09/2024 0629 E DT Height - - Body Mass Index 24.55 12/20/2023 2202 EST documented in this encounter [...] Flowsheet Note - Marcela Cox RN - 06/09/2024 1334 EDT 06/09/24 1046 Post-Hemodialysis Assessment Total Blood Processed (L) 91.71 Liters On Line Clearance: spKt/V 1.62 spKt/V Dialyzer Clearance Lightly streaked Treatment UFR (ml:kg:hr) 11.76 ml:kg:hr Final Critline Profile (%/hr) 0.12 Final Profile Profile A Critline refill Not done Fluid Removed (L) 3 L Post-Dialysis Scale Weight 106 kg (233 lb 11 oz) Wheelchair Weight 31.9 kg (70 lb 5.2 oz) Prosthesis Weight 0 kg (0 lb) Post-Treatment Weight (kg) 74.1 Treatment Weight Change (kg) 3.5 kg Day Target Weight (kg) 75.1 Post Sitting/Lying BP 165/76 Post Sitting/Lying pulse 65 Temp 36.7 ??C [...] Contact Info) Description 12/06/2024 6:45 EST Treatment [facility] [address] [place], [place] [id number] Carlota Jin MD [address] [phone] 12/08/2024 6:45 EST Treatment [facility] [place] [address] [place], [place] [id number] Carlota Jin MD [address] [phone] 12/11/2024 6:45 EST Treatment [facility] [place] [address] [place], [place] [id number] Carlota Jin MD [address] [phone] 12/13/2024 6:45 EST Treatment [facility] [place] [address] [place], [place] [id number] Carlota Jin MD [address] [place] [phone] 12/15/2024 6:45 EST Treatment [facility] [place] [address] [place], [place] [id number] Carlota Jin MD [address] [place] [phone] 12/18/2024 6:45 EST Treatment [facility] [place] [address] [place], [place] [id number] Carlota Jin MD 1 [facility], [place] 2 [place] [phone] 12/20/2024 6:45 EST Treatment [facility] [place] [address] [place] [address] Carlota Jin MD 1 [facility], [place] 2 [place] [phone] 12/22/2024 6:45 EST Treatment [facility] [place] [address] [place], [place] [address] [phone] Carlota Jin MD 1 [facility], [place] 2 [place] [phone] 12/25/2024 6:45 EST Treatment [facility] [place] [address] [place] [address] Carlota Jin MD 1 [facility], [place] [address] [place] [phone] 12/27/2024 6:45 EST Treatment [facility] [place] [address] [place], [place] [id number] Carlota Jin MD 1 [facility], [place] [address] [place] [phone] 12/29/2024 6:45 EST Treatment [facility] [place] [address] [place], [place] [address] Carlota Jin MD 1 [facility], [address] [phone] 01/01/2025 6:45 EDT Treatment [facility] [place] [address] [place] [address] Carlota Jin MD 1 [facility], [address] [phone] 01/03/2025 6:45 EDT Treatment [facility] [place] [address] [place], [place] [id number] Carlota Jin MD 1 [facility], [address] [phone] 01/05/2025 6:45 EDT Treatment [facility] [place] [address] [place], [place] [id number] Carlota Jin MD 1 [facility], [address] [phone] 01/08/2025 6:45 EDT Treatment [facility] [place] [address] [place], [place] [id number] Carlota Jin MD [address] [phone] 01/10/2025 6:45 EDT Treatment [facility] [place] [address] [place], [place] [id number] Carlota Jin MD 1 [facility], [place] [address] [place] [phone] 01/12/2025 6:45 EDT Treatment [facility] [place] [address] [place], [place] [id number] Carlota Jin MD 1 [facility], [place] [address] [place] [phone] 01/15/2025 6:45 EDT Treatment [facility] [place] [address] [place], [place] [id number] Carlota Jin MD 1 [facility], [place] [address] [place] [phone] 01/17/2025 6:45 EDT Treatment [facility] [place] [address] [place], [place] [id number] Carlota Jin MD 1 [facility], [place] [address] [place] [phone] 01/19/2025 6:45 EDT Treatment [facility] [place] [address] [place], [place] [id number] Carlota Jin MD 1 [facility], [place] [address] [place] [phone] 01/22/2025 6:45 EDT Treatment [facility] [place] [address] [place], [place] [id number] Carltoa Jin MD 1 [facility], [place] [address] [place] [phone] 01/24/2025 6:45 EDT Treatment [facility] [place] [address] [place], [place] [id number] Carlota Jin MD 1 [facility], [place] [address] [place] [phone] 01/26/2025 6:45 EDT Treatment [facility] [place] [address] [place], [place] [id number] Carlota Jin MD 1 [facility], [place] [address] [place] [phone] 01/29/2025 6:45 EDT Treatment [facility] [place] [address] [place], [place] [id number] Carlota Jin MD 1 [facility], [address] [phone] 01/31/2025 6:45 EDT Treatment [facility] [place] [address] [place], [place] [id number] Carlota Jin MD 1 [facility], [address] [phone] 02/02/2025 6:45 EDT Treatment [facility] [place] [address] [place], [place] [id number] Carlota Jin MD 1 [facility], [place] [address] [place] [phone] 02/05/2025 6:45 EDT Treatment [facility] [place] [address] [place], [place] [id number] Carlota Jin MD 1 [facility], Level [address] [place] [phone] 02/07/2025 6:45 EDT Treatment [facility] [place] [address] [place], [place] [id number] Carlota Jin MD 1 [facility], [place] [address] [place] [phone] 02/09/2025 6:45 EDT Treatment [facility] [place] [address] [place], [place] [id number] Carlota Jin MD 1 [facility], [place] [address] [place] [phone] 02/12/2025 6:45 EDT Treatment [facility] [place] [address] [place], [place] [id number] Carlota Jin MD 1 [facility], [place] [address] [place] [phone] 02/14/2025 6:45 EDT Treatment [facility] [place] [address] [place] [address] Carlota Jin MD 1 [facility], [place] [address] [place] [phone] 02/16/2025 6:45 EDT Treatment [facility] [place] [address] [place], [place] [id number] Carlota Jin MD 1 [facility], [place] [address] [place] [phone] 02/19/2025 6:45 EDT Treatment [facility] [place] [address] [place], [place] [id number] Carlota Jin MD 1 [facility], [place] [address] [place] [phone] 02/21/2025 6:45 EDT Treatment [facility] [address] [place], [place] [id number] Carlota Jin MD 1 [facility], [place] [address] [place] [phone] documented as of this encounter Procedures Procedure Name Priority Date/Time Associated Diagnosis Comments HEMODIALYSIS Routine 06/09/2024 6:31 EDT ESRD (end stage renal disease) ([facility]) documented in this encounter Visit Diagnoses Diagnosis ESRD (end stage renal disease) ([facility])- Primary End stage renal disease Anemia [...] oral, ONCE IN DIALYSIS, 1 dose, On Wed06/09/24 at 0700, Routine, DialysisIndications:ESRD (end stage renal disease) ([facility]),Secondary hyperparathyroidism ([facility]) Given 06/09/2024 6:44 EDT 2 Tablets epoetin ken (EPOGEN) 20,000 unit/2 mL injection 12,000 Units 12,000 Units, intravenous, ONCE IN DIALYSIS, 1 dose, On Wed06/09/24 at 0700, Routine, DialysisIndications:ESRD (end stage renal disease) ([facility]),Anemia of chronic renal failure, unspecified CKD stage Given 06/09/2024 6:44 EDT 12,000 Units heparin injection 7,000 Units 7,000 Units, intravenous, ONCE IN DIALYSIS, 1 dose, On Wed06/09/24 at 0700, Routine, Dialysis, Now x1 bolus 3400 units to be given at the beginning of dialysis 900 units/hour to be given over the course of dialysis (7000 units total). Stop 1 hour prior to end of treatment. To be administered per Policy [id number].Indications:ESRD (end stage renal disease) ([facility]) Given 06/09/2024 6:44 EDT 7,000 Units LiquaCel liquid protein liquid 30 mL 30 mL, oral, ONCE IN DIALYSIS, 1 dose, On Wed06/09/24 at 0700, Patient's flavor preference: either, RoutineIndications:ESRD (end stage renal disease) ([facility]),Hypoalbuminemia Given 06/09/2024 6:44 EDT 30 mL documented in this encounter Orders Dialysis Count Last Ordered Date First Orde red Date HEMODIALYSIS 1 06/09/2024 documented in this encounter Care Teams Transit [employer] Police Officer Relationship Specialty Start Date End Date Ken Greer MD [facility] [place] [address] PCP - General 07/07/23 Kiel Powers Brick Chimney Supervisor Nephrology 05/31/24 documented as of this encounter
--- OUTSIDE RECORDS SUMMARY | 2024-12-05 12:02 | XMS_ITS | Encounter Summary ---
Author Organization [facility] Address [address] [place] [address] Care Team Providers Care Health Clinician Name Role Phone Ken Greer MD Primary Care Provider [phone] Reason for Referral * (Routine/Next Available) - Receiving Office to Obtain Authorization Specialty Diagnoses / Procedures Referred By Contac t Referred To Contact Procedures XR OUTSIDE IMAGES CHEST Imaging, External Referral ID Status Reason Start Date Expiration Date Visits Requested Visits Authorized [id number] Receiving Office to Obtain Authorization 05/30/2024 1 1 Reason for Visit * (Routine/Next Available) - Receiving Office to Obtain Authorization Specialty Diagnoses / Procedures Referred By Nader gardiner Referred To Contact Procedures XR OUTSIDE IMAGES CHEST Imaging, External Referral ID Status Reason Start Date Expiration Date Visits Requested Visits Authorized [id number] Receiving Office to Obtain Authorization 05/30/2024 1 1 Encounter Details Date Type Department Care Team (Latest Contact Info) Description 05/30/2024 12:19 EDT - 05/30/2024 18:15 EDT Hospital Encounter [facility] Secondary [place] Discharge Disposition: Home or Self Care Social History Tobacco Use Types Packs/Day Years Used Date Smoking Tobacco: Every Day Cigarettes 1 26.1 Started: 1998 Smokeless Tobacco: Never Alcohol Use Standard Drinks/Week Comments Yes 0 (1 standard drink = 0.6 oz pur e alcohol) Socially [employer] Utilities Answer Date Recorded In the past 12 months has [employer] electric, gas, oil, or water company threatened [...] time in the past 12 m [facility], were you homeless or living in a correction (including now)? No 05/30/2024 Interpersonal Safety Answer Date Record ed How often does anyone, inclhu lyons family, hit, punch or physically hurt you? 05/30/2024 How often does anyone, inclu ding family, insult, scream, curse or threaten to hurt you? 05/30/2024 Living Situation Answer Date Recorded What is your living situation today? I have a [facility] place to live 05/30/2024 Think about [...] the past 12 months has th e [employer], [employer], oil, or water [employer] threatened to shut off services in your [...] Daria Baca RN documented in this encounter Medications at Time [...] insulin pen needles 32G x 5/32 Brand: Samplesaint Ultra Fine Anny. ISS TID and levemir [...] 1 Tablet by mouth at bedtime. 06/19/20 24 nicotine (NICODERM CQ) 21 mg/24 hr patch [...] Discharge Disposition Disposition Code Departure Means Destination Home or Self Care documented in this encounter Plan of Treatment Upcoming Encounters Date Type Department Care Team (Late st Contact Info) Description 12/06/2024 6:45 EST Treatment [facility] [address] [place] [address] Carlota Jin MD 1 [facility], Level [address] [place] [phone] 12/08/2024 6:45 EST Treatment [facility] [address] [place], [place] [address] Carlota Jin MD 1 [facility], [facility] 2 [place] [phone] 12/11/2024 6:45 EST Treatment [facility] [place] [address] [place] [address] Carlota Jin MD 1 [facility], [address] [phone] 12/13/2024 6:45 EST Treatment [facility] [place] [address] [place], [place] [id number] Carlota Jin MD 1 [facility], [address] [phone] 12/15/2024 6:45 EST Treatment [facility] [place] [address] [place] [address] Carlota Jin MD 1 [facility], [address] [phone] 12/18/2024 6:45 EST Treatment [facility] [place] [address] [place], [place] [id number] Carlota Jin MD [address] [phone] 12/20/2024 6:45 EST Treatment [facility] [place] [address] [place], [place] [id number] Carlota Jin MD 1 [facility], [facility] 2 [place] [phone] 12/22/2024 6:45 EST Treatment [facility] [place] [address] [place], [place] [id number] Carlota Jin MD 1 [facility], [facility] 2 [place] [phone] 12/25/2024 6:45 EST Treatment [facility] [place] [address] [place], [place] [id number] Carlota Jin MD 1 [facility], [facility] 2 [place] [phone] 12/27/2024 6:45 EST Treatment [facility] [place] [address] [place] [address] Carlota Jin MD 1 [facility], [facility] 2 [place] [phone] 12/29/2024 6:45 EST Treatment [facility] [place] [address] [place], [place] [id number] Carlota Jin MD 1 [facility], [facility] 2 [place] [phone] 01/01/2025 6:45 EDT Treatment [facility] [place] [address] [place], [place] [id number] Carlota Jin MD 1 [facility], [facility] 2 [place] [phone] 01/03/2025 6:45 EDT Treatment [facility] [place] [address] [place], [place] [id number] Carlota Jin MD 1 [facility], [facility] 2 [place] [phone] 01/05/2025 6:45 EDT Treatment [facility] [place] [address] [place], [place] [id number] Carlota Jin MD 1 [facility], [facility] 2 [place] [phone] 01/08/2025 6:45 EDT Treatment [facility] [place] [address] [place], [place] [phone] Carlota Jin MD 1 [facility], [facility] 2 [place] [phone] 01/10/2025 6:45 EDT Treatment [facility] [place] [address] [place], [place] [id number] Carlota Jin MD 1 [facility], [facility] 2 [place] [phone] 01/12/2025 6:45 EDT Treatment [facility] [place] [address] [place], [place] [id number] Carlota Jin MD 1 [facility], [facility] 2 [place] [phone] 01/15/2025 6:45 EDT Treatment [facility] [place] [address] [place], [place] [id number] Carlota Jin MD 1 [facility], [facility] 2 [place] [phone] 01/17/2025 6:45 EDT Treatment [facility] [place] [address] [place], [place] [id number] Carlota Jin MD 1 [facility], [facility] 2 [place] [phone] 01/19/2025 6:45 EDT Treatment [facility] [place] [address] [place], [place] [phone] Carlota Jin MD 1 [facility], [facility] 2 [place] [phone] 01/22/2025 6:45 EDT Treatment [facility] [place] [address] [place], [place] [id number] Carlota Jin MD 1 [facility], [facility] 2 [place] [phone] 01/24/2025 6:45 EDT Treatment [facility] [address] [place], [place] [id number] Carlota Jin MD 1 [facility], [facility] 2 [place] [phone] 01/26/2025 6:45 EDT Treatment [facility] [address] [place], [place] [phone] Carlota Jin MD 1 [facility], [facility] 2 [place] [phone] 01/29/2025 6:45 EDT Treatment [facility] [place] [address] [place], [place] [id number] Carlota Jin MD 1 [facility], [facility] 2 [place] [phone] 01/31/2025 6:45 EDT Treatment [facility] [place] [address] [place], [place] [id number] Carlota Jin MD [address] [place] [address], [address] [phone] 02/02/2025 6:45 EDT Treatment [facility] [place] [address] [place], [place] [id number] Carlota Jin MD [address] [place] [address], [address] [phone] 02/05/2025 6:45 EDT Treatment [facility] [place] [address] [place], [place] [id number] Carlota Jin MD 1 [facility], [facility] 2 [place] [phone] 02/07/2025 6:45 EDT Treatment [facility] [place] [address] [place], [place] [id number] Carlota Jin MD 1 [facility], [facility] 2 [place] [phone] 02/09/2025 6:45 EDT Treatment [facility] [place] [address] [place], [place] [id number] Carlota Jin MD 1 [facility], [facility] 2 [place] [phone] 02/12/2025 6:45 EDT Treatment [facility] [place] [address] [place], [place] [id number] Carlota Jin MD 1 [facility], [facility] 2 [place] [phone] 02/14/2025 6:45 EDT Treatment [facility] [place] [address] [place], [place] [id number] Carlota Jin MD 1 [facility], [facility] 2 [place] [phone] 02/16/2025 6:45 EDT Treatment [facility] [place] [address] [place] [address] Carlota Jin MD 1 [facility], [facility] 2 [place] [phone] 02/19/2025 6:45 EDT Treatment [facility] [place] [address] [place] [address] Carlota Jin MD 1 [facility], [facility] 2 [place] [phone] 02/21/2025 6:45 EDT Treatment [facility] [place] [address] [place], [place] [phone] Carlota Jin MD 1 [facility], [facility] 2 [place] [phone] documented as of this encounter Procedures Procedure Name Priority Date/Time Associated Diagnosis Comments XR OUTSIDE IMAGES CHEST Routine 05/30/2024 12:23 EDT documented in this encounter Results * XR OUTSIDE IMAGES CHEST (05/30/2024 12:23 EDT) Narrative 05/30/2024 12:23 EDT This is a non-reportable exam. us External Imaging IMG OTHER IMAGING ORDERABLES Fi nal Result documented in this encounter Visit Diagnoses Not on filedocumented in this encounter Care Teams Health Clinician Relationship Specialty Start Date End Date Ken Greer MD [address] [place] [address] PCP - General 07/07/23 documented as of this encounter
--- OUTSIDE RECORDS SUMMARY | 2024-12-05 12:02 | XMS_ITS | Encounter Summary ---
Author Organization [facility] Address [address] [place] [address] Care Team Providers Care Investigative Shopper Name Role Phone Ken Greer MD Primary Care Provider [phone] Kiel Powers Unavailable Unavailable Reason for Visit * Episode Based Medications (Routine) - New Request Specialty Diagnoses / Procedures Referred By Nader gardiner Referred To Contact Diagnoses ESRD (end stage renal disease) ([facility]) Carlota Jin MD [address] [place] [address] [address] [place] [address] Phone: tel: fax: [facility] [place] [address] [place] [address] Phone: tel: fax: Referral ID Status Reason Start Date Expiration Date V isits Requested Visits Authorized [id number] New Request 03/17/2024 1 1 Encounter Details Date Type Department Care Team (Latest Contact Info) Description 06/07/2024 6:45 EDT Treatment [facility] [address] [place], [place] [id number] Carlota Jin MD [address] [place] [address], [facility] [address] [place] [address] ESRD (end stage renal disease) ([facility]) (Primary Dx); Anemia of chronic renal failure, unspecified CKD stage; Hypoalbuminemia; Secondary hyperparathyroidism ([facility]) Social History Tobacco Use Types Packs/Day Years Used Date Smoking Tobacco: Every Day Cigarettes 1 26.1 Started: 1998 Smokeless Tobacco: Never Alcohol Use Standard Drinks/Week Comments Yes 0 (1 standard drink = 0.6 oz pur e alcohol) Socially [facility] Utilities Answer Date Recorded In the [...] were you homeless or living in a group home (including now)? No 05/30/2024 Interpersonal Safety [...] the past 12 months has th e [employer], gas, oil, or water [employer] threatened to shut off services in your [...] - Temperature - - Respiratory Rate 16 06/07/2024 0622 EDT Oxygen Saturation - - Inhaled Oxygen Concentration - - Weight 77.3 kg (170 lb 6.7 oz) 06/07/2024 0623 E DT Height - - Body Mass Index 24.45 12/20/2023 2202 EST documented in this encounter [...] Flowsheet Note - Marcela Cox RN - 06/07/2024 1327 EDT 06/07/24 1044 Post-Hemodialysis Assessment Total Blood Processed (L) 90.67 Liters On Line Clearance: spKt/V 1.63 spKt/V Dialyzer Clearance Lightly streaked Treatment UFR (ml:kg:hr) 7.14 ml:kg:hr Critline refill Not done Fluid Removed (L) 2.5 L Post-Dialysis Scale Weight 94.1 kg (207 lb 7.3 oz) Wheelchair Weight 19 kg (41 lb 14.2 oz) Prosthesis Weight 0 kg (0 lb) Post-Treatment Weight (kg) 75.1 Treatment Weight Change (kg) 2.2 kg Day Target Weight (kg) 75.3 Post Sitting/Lying BP 189/88 Post Sitting/Lying pulse 71 Temp 36.7 ??C (98.1 ??F) Temp src Temporal Minutes Short -246 Post access assessment Bruit present: Yes Thrill Present AVF/AFG Hemostasis achieved Yes Note Patient held for 10mins with blue clamps Orientation Alert and Oriented x3 Yes Time Yes Place Yes Person Yes Cooperative Yes Disoriented No Discharge Ambulation Methods Departs via w/c;With patient transport Wrap up items Patient Response to Treatment Tolerated tx well. Removed 2.5L UF goal without difficulty. Comments No issues during tx, no concerns voiced post tx. * Dialysis Rounding - Skye Gomez NP - 06/07/2024 0645 EDT Dialysis Provider's Routine Assessment The visit was conducted via telehealth (audio/video) between the [facility] dialysis unit and the provider from their Clinic. The interaction was assisted by RN. The [...] unit; Patient location state: Visit Location State: [place] The location of the provider: Office; Provider location state: Visit Location State: [place] Gerson Bruner was seen and examined as appropriate during Dialysis. Pertinent lab results were reviewed. Changes since last visit: None Changes to current prescriptions/orders: None Pt resting quietly on dialysis. Skye Gomez NP documented in this encounter Plan of Treatment Upcoming Encounters Date Type Department Care Team (Late st Contact Info) Description 12/06/2024 6:45 EST Treatment [facility] [address] [place] [address] Carlota Jin MD 1 [facility], Level [address] [place] [address] 12/08/2024 6:45 EST Treatment [facility] [address] [place], [place] [id number] Carlota Jin MD 1 [facility], [facility] [address] [place] [phone] 12/11/2024 6:45 EST Treatment [facility] [place] [address] [place], [place] [phone] Carlota Jin MD 1 [facility], [facility] [address] [place] [phone] 12/13/2024 6:45 EST Treatment [facility] [place] [address] [place], [place] [phone] Carlota Jin MD 1 [facility], [facility] [address] [place] [phone] 12/15/2024 6:45 EST Treatment [facility] [place] [address] [place], [place] [phone] Carlota Jin MD 1 [facility], [address] [phone] 12/18/2024 6:45 EST Treatment [facility] [address] [place], [place] [phone] Carlota Jin MD 1 [facility], [facility] [address] [place] [phone] 12/20/2024 6:45 EST Treatment [facility] [place] [address] [place], [place] [phone] Carlota Jin MD 1 [facility], [facility] [address] [place] [phone] 12/22/2024 6:45 EST Treatment [facility] [place] [address] [place], [place] [phone] Carlota Jin MD 1 [facility], [facility] [address] [place] [phone] 12/25/2024 6:45 EST Treatment [facility] [address] [place], [place] [phone] Carlota Jin MD 1 [facility], [facility] [address] [place] [phone] 12/27/2024 6:45 EST Treatment [facility] [place] [address] [place], [place] [address] [phone] Carlota Jin MD 1 [facility], [facility] [address] [place] [phone] 12/29/2024 6:45 EST Treatment [facility] [address] [place] [address] Carlota Jin MD 1 [facility], [facility] [address] [place] [phone] 01/01/2025 6:45 EDT Treatment [facility] [address] [place], [place] [phone] Carlota Jin MD 1 [facility], [facility] 2 [place] [phone] 01/03/2025 6:45 EDT Treatment [facility] [address] [place], [place] [address] Carlota Jin MD 1 [facility], [address] [phone] 01/05/2025 6:45 EDT Treatment [facility] [address] [place] [address] Carlota Jin MD 1 [facility], [address] [phone] 01/08/2025 6:45 EDT Treatment [facility] [place] [address] [place], [place] [phone] Carlota Jin MD 1 [facility], [address] [phone] 01/10/2025 6:45 EDT Treatment [facility] [place] [address] [place], [place] [phone] Carlota Jin MD 1 [facility], [address] [phone] 01/12/2025 6:45 EDT Treatment [facility] [address] [place], [place] [phone] Carlota Jin MD [address] [phone] 01/15/2025 6:45 EDT Treatment [facility] [address] [place], [place] [phone] Carlota Jin MD 1 [facility], [facility] [address] [place] [phone] 01/17/2025 6:45 EDT Treatment [facility] [place] [address] [place], [place] [phone] Carlota Jin MD 1 [facility], [facility] [address] [place] [phone] 01/19/2025 6:45 EDT Treatment [facility] [address] [place], [place] [phone] Carlota Jin MD 1 [facility], [facility] [address] [place] [phone] 01/22/2025 6:45 EDT Treatment [facility] [address] [place], [place] [phone] Carlota Jin MD [address] [place] [address], [address] [phone] 01/24/2025 6:45 EDT Treatment [facility] [address] [place], [place] [phone] Carlota Jin MD 1 [facility], [facility] [address] [place] [phone] 01/26/2025 6:45 EDT Treatment [facility] [place] [address] [place], [place] [phone] Carlota Jin MD 1 [facility], [facility] [address] [place] [phone] 01/29/2025 6:45 EDT Treatment [facility] [address] [place], [place] [phone] Carlota Jin MD 1 [facility], [facility] [address] [place] [phone] 01/31/2025 6:45 EDT Treatment [facility] [address] [place], [place] [phone] Carlota Jin MD 1 [facility], [address] [phone] 02/02/2025 6:45 EDT Treatment [facility] [address] [place], [place] [phone] Carlota Jin MD 1 [facility], [address] [phone] 02/05/2025 6:45 EDT Treatment [facility] [place] [address] [place], [place] [phone] Carlota Jin MD 1 [facility], [address] [phone] 02/07/2025 6:45 EDT Treatment [facility] [address] [place], [place] [address] Carlota Jin MD 1 [facility], [facility] 2 [place] [phone] 02/09/2025 6:45 EDT Treatment [facility] [place] [address] [place], [place] [phone] Carlota Jin MD 1 [facility], [facility] 2 [place] [phone] 02/12/2025 6:45 EDT Treatment [facility] [address] [place], [place] [address] Carlota Jin MD 1 [facility], [facility] 2 [place] [phone] 02/14/2025 6:45 EDT Treatment [facility] [place] [address] [place], [place] [phone] Carlota Jin MD 1 [facility], [facility] [address] [place] [phone] 02/16/2025 6:45 EDT Treatment [facility] [address] [place], [place] [address] Carlota Jin MD 1 [facility], [facility] 2 [place] [phone] 02/19/2025 6:45 EDT Treatment [facility] [address] [place] [address] Carlota Jin MD 1 [facility], [facility] 2 [place] [phone] 02/21/2025 6:45 EDT Treatment [facility] [address] [place], [place] [address] Carlota Jin MD 1 [facility], [facility] [address] [place] [phone] documented as of this encounter Procedures Procedure Name Priority Date/Time Associated Diagnosis Comments COMPLETE BLOOD COUNT Routine 06/07/2024 6:30 EDT ESRD (end stage renal disease) ([facility]) HEMODIALYSIS Routine 06/07/2024 6:22 EDT ESRD (end stage renal disease) ([facility]) documented in this encounter Results * (ABNORMAL) COMPLETE BLOOD COUNT (06/07/2024 6:30 EDT) WBC 8.08 4.00 - 10.40 K/cmm 06/07/2024 22:36 [facility] RBC 3.76(L) 4.36 - 5.78 M/cmm 06/07/2024 22:36 [facility] Hemoglobin 10.0(L) 13.8 - 17.3 g/dL 06/07/2024 22:36 [facility] HCT 33.1(L) 39.5 - 50.2 % 06/07/2024 22:36 [facility] MCV 88 81 - 95 fL 06/07/2024 22:36 [facility] MCH 26.6(L) 27.6 - 33.0 pg 06/07/2024 22:36 [facility] MCHC 30.2(L) 32.8 - 36.4 g/dL 06/07/2024 22:36 [facility] RDW-CV 16.5(H) <14.2 % 06/07/2024 22:36 [facility] RDW-SD 53.3(H) <46.0 fl 06/07/2024 22:36 [facility] PLT 276 141 - 377 K/cmm 06/07/2024 22:36 [facility] MPV 11.8 9.5 - 12.7 fL 06/07/2024 22:36 [facility] Blood VENOUS BLOOD / Unknown Venipuncture / Unknown 06/07/2024 6:30 EDT 06/07/2024 6:30 EDT us Skye Gomez NP HEMATOLOGY & PF4 ORDERABLES Final Result [facility] [address] [place], [place] [phone] documented in this encounter Visit Diagnoses Diagnosis ESRD (end stage renal disease) ([facility])- Primary End stage renal disease Anemia of chronic renal failure, unspecified CKD stage Hypoalbuminemia Other disorders of plasma protein metabolism Secondary hyperparathyroidism ([facility]) Secondary hyperparathyroidism (of renal origin) documented in this encounter Administered Medications Inactive Administered Medications - up to 3 most recent administrations Medication Order MAR Action Action Date Dose Rate Site acetaminophen (TYLENOL) tablet 650 mg 650 mg, oral, EVERY 4 HOURS PRN, Starting on Wed06/07/24 at 1104, Until Wed06/07/24 at 1527, Pain, Routine, DialysisIndications:ESRD (end stage renal disease) ([facility]) Given 06/07/2024 11:06 EDT 650 mg calcium carbonate (TUMS) tablet 500 mg (200 mg elemental calcium) 2 Tablet 2 Tablet, oral, ONCE IN DIALYSIS, 1 dose, On Wed06/07/24 at 0645, Routine, DialysisIndications:ESRD (end stage renal disease) ([facility]),Secondary hyperparathyroidism ([facility]) Given 06/07/2024 6:32 EDT 2 Tablets epoetin ken (EPOGEN) 20,000 unit/2 mL injection 12,000 Units 12,000 Units, intravenous, ONCE IN DIALYSIS, 1 dose, On Wed06/07/24 at 0645, Routine, DialysisIndications:ESRD (end stage renal disease) ([facility]),Anemia of chronic renal failure, unspecified CKD stage Given 06/07/2024 6:57 EDT 12,000 Units heparin injection 7,000 Units 7,000 Units, intravenous, ONCE IN DIALYSIS, 1 dose, On Wed06/07/24 at 0645, Routine, Dialysis, Now x1 bolus 3400 units to be given at the beginning of dialysis 900 units/hour to be given over the course of dialysis (7000 units total). Stop 1 hour prior to end of treatment. To be administered per Policy [id number].Indications:ESRD (end stage renal disease) ([facility]) Given 06/07/2024 6:57 EDT 7,000 Units iron sucrose (VENOFER) injection 200 mg 200 mg, intravenous, ONCE IN DIALYSIS, 1 dose, On Wed06/07/24 at 0645, Routine, DialysisIndications:ESRD (end stage renal disease) ([facility]) Given 06/07/2024 6:57 EDT 200 mg LiquaCel liquid protein liquid 30 mL 30 mL, oral, ONCE IN DIALYSIS, 1 dose, On Wed06/07/24 at 0645, Patient's flavor preference: either, RoutineIndications:ESRD (end stage renal disease) ([facility]),Hypoalbuminemia Given 06/07/2024 6:33 EDT 30 mL documented in this encounter Orders Dialysis Count Last Ordered Date First Orde red Date HEMODIALYSIS 1 06/07/2024 documented in this encounter Care Teams Investigative Shopper Relationship Specialty Start Date End Date Ken Greer MD [address] [place] [address] PCP - General 07/07/23 Kiel Powers Real Estate Investor Nephrology 05/31/24 documented as of this encounter
--- OUTSIDE RECORDS SUMMARY | 2024-12-05 12:02 | XMS_ITS | Encounter Summary ---
Author Organization [facility] Address [address] [place] [address] Care Team Providers Care Engineering Department Chair Name Role Phone Ken Greer MD Primary Care Provider [phone] Kiel Powers Unavailable Unavailable Encounter Details Date Type Department Care Team (Late st Contact Info) Description 06/02/2024 Documentation Visit [facility] [address] [place], [place] [id number] Keila Vizcarra, RN Social History Tobacco Use Types Packs/Day Years Used Date Smoking Tobacco: Every Day Cigarettes 1 26.1 Started: 1998 Smokeless Tobacco: Never Alcohol Use Standard Drinks/Week Comments Yes 0 (1 standard drink = 0.6 oz pur e alcohol) Socially [facility] Utilities Answer Date Recorded In [...] in the past 12 m [facility], were you homeless or living in a [facility] (including now)? No 05/30/2024 Interpersonal Safety Answer Date Record ed How often does anyone, martin lyons family, hit, punch or physically hurt you? 05/30/2024 How often does anyone, martin lyons family, insult, scream, curse or threaten to hurt you? 05/30/2024 Living Situation Answer Date Recorded What is your living situation today? I have a [facility] place to live 05/30/2024 Think about [...] EST Treatment [facility] [place] [address] [place], [place] [phone] Carlota Jin MD 1 [facility], Level [address] [place] [address] 12/08/2024 6:[address] [facility] [place] [address] [place], [place] [phone] Carlota Jin MD 1 [facility], Level [address] [place] [phone] 12/11/2024 6:[address] [facility] [place] [address] [place], [place] [address] Carlota Jin MD 1 [facility], [facility] 2 [place] [phone] 12/13/2024 6:[address] [facility] [place] [address] [place], [place] [phone] Carlota Jin MD 1 [facility], [facility] 2 [place] [phone] 12/15/2024 6:[address] [facility] [place] [address] [place] [address] Carlota Jin MD 1 [facility], [facility] 2 [place] [phone] 12/18/2024 6:[address] [facility] [address] [place], [place] [phone] Carlota Jin MD 1 [facility], [facility] 2 [place] [phone] 12/20/2024 6:[address] [facility] [place] [address] [place], [place] [phone] Carlota Jin MD 1 [facility], [facility] 2 [place] [phone] 12/22/2024 6:[address] [facility] [place] [address] [place], [place] [phone] Carlota Jin MD 1 [facility], [facility] 2 [place] [phone] 12/25/2024 6:[address] [facility] [place] [address] [place], [place] [phone] Carlota Jin MD 1 [facility], [facility] 2 [place] [phone] 12/27/2024 6:[address] [facility] [place] [address] [place], [place] [phone] Carlota Jin MD 1 [facility], [facility] 2 [place] [phone] 12/29/2024 6:[address] [facility] [place] [address] [place], [place] [phone] Carlota Jin MD 1 [facility], [facility] 2 [place] [phone] 01/01/2025 6:[address] [facility] [place] [address] [place], [place] [phone] Carlota Jin MD 1 [facility], [facility] 2 [place] [phone] 01/03/2025 6:[address] [facility] [place] [address] [place], [place] [phone] Carlota Jin MD 1 [facility], [facility] 2 [place] [phone] 01/05/2025 6:[address] [facility] [place] [address] [place], [place] [phone] Carlota Jin MD 1 [facility], [facility] 2 [place] [phone] 01/08/2025 6:[address] [facility] [place] [address] [place], [place] [phone] Carlota Jin MD 1 [facility], [facility] 2 [place] [phone] 01/10/2025 6:[address] [facility] [place] [address] [place], [place] [phone] Carlota Jin MD 1 [facility], [facility] 2 [place] [phone] 01/12/2025 6:[address] [facility] [address] [place], [place] [phone] Carlota Jin MD 1 [facility], [facility] 2 [place] [phone] 01/15/2025 6:[address] [facility] [place] [address] [place], [place] [phone] Carlota Jin MD 1 [facility], [facility] 2 [place] [phone] 01/17/2025 6:[address] [facility] [place] [address] [place], [place] [phone] Carlota Jin MD 1 [facility], [facility] 2 [place] [phone] 01/19/2025 6:[address] [facility] [place] [address] [place], [place] [phone] Carlota Jin MD 1 [facility], [facility] 2 [place] [phone] 01/22/2025 6:[address] [facility] [place] [address] [place], [place] [phone] Carlota Jin MD 1 [facility], [facility] 2 [place] [phone] 01/24/2025 6:[address] [facility] [place] [address] [place], [place] [address] Carlota Jin MD 1 [facility], [facility] 2 [place] [phone] 01/26/2025 6:[address] [facility] [place] [address] [place], [place] [phone] Carlota Jin MD 1 [facility], [facility] 2 [place] [phone] 01/29/2025 6:[address] [facility] [place] [address] [place], [place] [id number] Carlota Jin MD 1 [facility], [facility] 2 [place] [phone] 01/31/2025 6:[address] [facility] [place] [address] [place] [address] Carlota Jin MD 1 [facility], [address] [phone] 02/02/2025 6:[address] [facility] [place] [address] [place], [place] [phone] Carlota Jin MD 1 [facility], [address] [phone] 02/05/2025 6:[address] [facility] [place] [address] [place], [place] [phone] Carlota Jin MD 1 [facility], [address] [phone] 02/07/2025 6:[address] [facility] [place] [address] [place], [place] [phone] Carlota Jin MD 1 [facility], [facility] 2 [place] [phone] 02/09/2025 6:[address] [facility] [place] [address] [place], [place] [phone] Carlota Jin MD 1 [facility], [facility] 2 [place] [phone] 02/12/2025 6:[address] [facility] [place] [address] [place], [place] [phone] Carlota Jin MD 1 [facility], [address] [phone] 02/14/2025 6:[address] [facility] [place] [address] [place], [place] [phone] Carlota Jin MD [address] [place] [phone] 02/16/2025 6:[address] [facility] [place] [address] [place], [place] [address] [phone] Carlota Jin MD [address] [place] [phone] 02/19/2025 6:[address] [facility] [place] [address] [place], [place] [phone] Carlota Jin MD [address] [place] [phone] 02/21/2025 6:[address] [facility] [place] [address] [place], [place] [phone] Carlota Jin MD [address] [phone] documented as of this encounter Visit Diagnoses Not on filedocumented in this encounter Care Teams Engineering Department Chair Relationship Specialty Start Date End Date Ken Greer MD [address] [place] [address] PCP - General 07/07/23 Kiel Powers Window Trimmer Apprentice Nephrology 05/31/24 documented as of this encounter
--- OUTSIDE RECORDS SUMMARY | 2024-12-05 12:02 | XMS_ITS | Encounter Summary ---
Author Organization [facility] Address [address] [place] [address] Care Team Providers Care Grid Maker Name Role Phone Ken Greer MD Primary Care Provider [phone] Kiel Powers Unavailable Unavailable Reason for Visit * Episode Based Medications (Routine) - New Request Specialty Diagnoses / Procedures Referred By Nader gardiner Referred To Contact Diagnoses ESRD (end stage renal disease) ([facility]) Carlota Jin MD [address] [place] [address] [address] [place] [address] Phone: tel: fax: [facility] [place] [address] [place] [address] Phone: tel: fax: Referral ID Status Reason Start Date Expiration Date V isits Requested Visits Authorized [id number] New Request 03/17/2024 1 1 Encounter Details Date Type Department Care Team (Latest Contact Info) Description 06/05/2024 6:45 EDT Treatment [facility] [address] [place], [place] [phone] Carlota Jin MD [address] [place] [address], [facility] [address] [place] [phone] ESRD (end stage renal disease) ([facility]) (Primary Dx); Anemia of chronic renal failure, unspecified CKD stage; Hypoalbuminemia; Secondary hyperparathyroidism ([facility]) Social History Tobacco Use [...] any time in the past 12 m [facility], were you homeless or living [...] the past 12 months has th e [employer], gas, oil, or water [employer] threatened to shut off services in your [...] - Temperature - - Respiratory Rate 16 06/05/2024 0618 EDT Oxygen Saturation - - Inhaled Oxygen Concentration - - Weight 79.6 kg (175 lb 7.8 oz) 06/05/2024 0624 E DT Height - - Body Mass Index 25.18 12/20/2023 2202 EST documented in this encounter [...] Flowsheet Note - Marcela Cox RN - 06/05/2024 1339 EDT 06/05/24 1043 Post-Hemodialysis Assessment Total Blood Processed (L) 90.4 Liters On Line Clearance: spKt/V 1.54 spKt/V Dialyzer Clearance Lightly streaked Treatment UFR (ml:kg:hr) 14.51 ml:kg:hr Critline refill Not done Fluid Removed (L) 4.3 L Post-Dialysis Scale Weight 94.2 kg (207 lb 10.8 oz) Wheelchair Weight 19 kg (41 lb 14.2 oz) Prosthesis Weight 0 kg (0 lb) Post-Treatment Weight (kg) 75.2 Treatment Weight Change (kg) 4.4 kg Day Target Weight (kg) 75.8 Post Sitting/Lying BP (!) 165/102 Post Sitting/Lying pulse 69 Temp 36.4 ??C (97.5 ??F) Temp src Temporal Minutes Short -242 Post access assessment AVF/AFG Hemostasis achieved Yes Note pt held with blue clamps for 10 minutes Orientation Alert and Oriented [...] Contact Info) Description 12/06/2024 6:45 EST Treatment [facility] [place] [address] [place], [place] [phone] Carlota Jin MD 1 [facility], [facility] [address] [place] [phone] 12/08/2024 6:45 EST Treatment [facility] [place] [address] [place], [place] [phone] Carlota Jin MD [address] [place] [phone] 12/11/2024 6:45 EST Treatment [facility] [place] [address] [place], [place] [phone] Carlota Jin MD [address] [phone] 12/13/2024 6:45 EST Treatment [facility] [place] [address] [place], [place] [phone] Carlota Jin MD [address] [place] [phone] 12/15/2024 6:45 EST Treatment [facility] [place] [address] [place], [place] [phone] Carlota Jin MD [address] [place] [phone] 12/18/2024 6:45 EST Treatment [facility] [place] [address] [place], [place] [phone] Carlota Jin MD 1 [facility], [facility] [address] [place] [phone] 12/20/2024 6:45 EST Treatment [facility] [place] [address] [place], [place] [phone] Carlota Jin MD 1 [facility], [facility] [address] [place] [phone] 12/22/2024 6:45 EST Treatment [facility] [address] [place], [place] [phone] Carlota Jin MD [address] [place] [address], [facility] [address] [place] [phone] 12/25/2024 6:45 EST Treatment [facility] [address] [place], [place] [phone] Carlota Jin MD 1 [facility], [facility] [address] [place] [phone] 12/27/2024 6:45 EST Treatment [facility] [address] [place], [place] [phone] Carlota Jin MD 1 [facility], [facility] [address] [place] [phone] 12/29/2024 6:45 EST Treatment [facility] [address] [place], [place] [phone] Carlota Jin MD 1 [facility], [facility] [address] [place] [phone] 01/01/2025 6:45 EDT Treatment [facility] [place] [address] [place], [place] [phone] Carlota Jin MD 1 [facility], [facility] [address] [place] [phone] 01/03/2025 6:45 EDT Treatment [facility] [place] [address] [place], [place] [phone] Carlota Jin MD 1 [facility], [facility] [address] [place] [phone] 01/05/2025 6:45 EDT Treatment [facility] [place] [address] [place], [place] [phone] Carlota Jin MD 1 [facility], [facility] [address] [place] [phone] 01/08/2025 6:45 EDT Treatment [facility] [place] [address] [place], [place] [phone] Carlota Jin MD 1 [facility], [facility] [address] [place] [phone] 01/10/2025 6:45 EDT Treatment [facility] [place] [address] [place], [place] [id number] Carlota Jin MD 1 [facility], [facility] [address] [place] [phone] 01/12/2025 6:45 EDT Treatment [facility] [place] [address] [place], [place] [id number] Carlota Jin MD 1 [facility], [facility] [address] [place] [phone] 01/15/2025 6:45 EDT Treatment [facility] [place] [address] [place], [place] [id number] Carlota Jin MD 1 [facility], [facility] [address] [place] [phone] 01/17/2025 6:45 EDT Treatment [facility] [place] [address] [place], [place] [phone] Carlota Jin MD 1 [facility], [facility] [address] [place] [phone] 01/19/2025 6:45 EDT Treatment [facility] [place] [address] [place], [place] [address] Carlota Jin MD 1 [facility], [facility] [address] [place] [phone] 01/22/2025 6:45 EDT Treatment [facility] [place] [address] [place], [place] [id number] Carlota Jin MD 1 [facility], [facility] [address] [place] [phone] 01/24/2025 6:45 EDT Treatment [facility] [place] [address] [place] [address] Carlota Jin MD 1 [facility], [facility] [address] [place] [phone] 01/26/2025 6:45 EDT Treatment [facility] [address] [place] [address] Carlota Jin MD 1 [facility], [facility] [address] [place] [phone] 01/29/2025 6:45 EDT Treatment [facility] [place] [address] [place], [place] [id number] Carlota Jin MD 1 [facility], [address] [phone] 01/31/2025 6:45 EDT Treatment [facility] [address] [place], [place] [phone] Carlota Jin MD 1 [facility], [address] [phone] 02/02/2025 6:45 EDT Treatment [facility] [place] [address] [place], [place] [id number] Carlota Jin MD 1 [facility], [address] [phone] 02/05/2025 6:45 EDT Treatment [facility] [place] [address] [place], [place] [phone] Carlota Jin MD 1 [facility], [facility] [address] [place] [phone] 02/07/2025 6:45 EDT Treatment [facility] [place] [address] [place], [place] [id number] Carlota Jni MD 1 [facility], [facility] [address] [place] [phone] 02/09/2025 6:45 EDT Treatment [facility] [place] [address] [place], [place] [address] Carlota Jni MD 1 [facility], [facility] [address] [place] [phone] 02/12/2025 6:45 EDT Treatment [facility] [place] [address] [place] [address] Carlota Jin MD 1 [facility], [facility] [address] [place] [phone] 02/14/2025 6:45 EDT Treatment [facility] [address] [place], [place] [phone] Carlota Jin MD 1 [facility], [facility] [address] [place] [phone] 02/16/2025 6:45 EDT Treatment [facility] [place] [address] [place], [place] [id number] Carlota Jin MD 1 [facility], [facility] [address] [place] [phone] 02/19/2025 6:45 EDT Treatment [facility] [address] [place] [id number] Carlota Jin MD 1 [facility], [facility] [address] [place] [phone] 02/21/2025 6:45 EDT Treatment [facility] [address] [place], [place] [phone] Carlota Jin MD 1 [facility], [facility] [address] [place] [phone] documented as of this encounter Procedures Procedure Name Priority Date/Time Associated Diagnosis Comments HEMODIALYSIS Routine 06/05/2024 6:18 EDT ESRD (end stage renal disease) ([facility]) documented in this encounter Visit Diagnoses Diagnosis ESRD (end stage renal disease) ([facility])- Primary End stage renal disease Anemia of chronic renal failure, unspecified CKD stage Hypoalbuminemia Other disorders of plasma protein metabolism Secondary hyperparathyroidism ([facility]) Secondary hyperparathyroidism (of renal origin) documented in this encounter Administered Medications Inactive Administered Medications - up to 3 most recent administrations Medication Order MAR Action Action Date Dose Rate Site calcium carbonate (TUMS) tablet 500 mg (200 mg elemental calcium) 2 Tablet 2 Tablet, oral, ONCE IN DIALYSIS, 1 dose, On Wed06/05/24 at 0645, Routine, DialysisIndications:ESRD (end stage renal disease) ([facility]),Secondary hyperparathyroidism ([facility]) Given 06/05/2024 6:35 EDT 2 Tablets epoetin ken (EPOGEN) 20,000 unit/2 mL injection 12,000 Units 12,000 Units, intravenous, ONCE IN DIALYSIS, 1 dose, On Wed06/05/24 at 0645, Routine, DialysisIndications:ESRD (end stage renal disease) ([facility]),Anemia of chronic renal failure, unspecified CKD stage Given 06/05/2024 6:47 EDT 12,000 Units heparin injection 7,000 Units 7,000 Units, intravenous, ONCE IN DIALYSIS, 1 dose, On Wed06/05/24 at 0645, Routine, Dialysis, Now x1 bolus 3400 units to be given at the beginning of dialysis 900 units/hour to be given over the course of dialysis (7000 units total). Stop 1 hour prior to end of treatment. To be administered per Policy [id number].Indications:ESRD (end stage renal disease) ([facility]) Given 06/05/2024 6:47 EDT 7,000 Units iron sucrose (VENOFER) injection 200 mg 200 mg, intravenous, ONCE IN DIALYSIS, 1 dose, On Wed06/05/24 at 0645, Routine, DialysisIndications:ESRD (end stage renal disease) ([facility]) Given 06/05/2024 6:47 EDT 200 mg LiquaCel liquid protein liquid 30 mL 30 mL, oral, ONCE IN DIALYSIS, 1 dose, On Wed06/05/24 at 0645, Patient's flavor preference: either, RoutineIndications:ESRD (end stage renal disease) ([facility]),Hypoalbuminemia Given 06/05/2024 6:35 EDT 30 mL documented in this encounter Orders Dialysis Count Last Ordered Date First Orde red Date HEMODIALYSIS 1 06/05/2024 documented in this encounter Care Teams Grid Maker Relationship Specialty Start Date End Date Ken Greer MD [address] [place] [address] PCP - General 07/07/23 Kiel Powers Plastic Tile Layer Nephrology 05/31/24 documented as of this encounter
--- OUTSIDE RECORDS SUMMARY | 2024-12-05 12:02 | XMS_ITS | Encounter Summary ---
Author Organization [facility] Address [address] [place] [address] Care Team Providers Care Director Medical Name Role Phone Ken Greer MD Primary Care Provider Kiel Powers Unavailable Unavailable Reason for Visit * Episode Based Medications (Routine) - New Request Specialty Diagnoses / Procedures Referred By Nader gardiner Referred To Contact Diagnoses ESRD (end stage renal disease) ([facility]) Carlota Jin MD [address] [place] [address] [address] [place] [address] Phone: tel: fax: [facility] [place] [address] [place] [address] Phone: tel: fax: Referral ID Status Reason Start Date Expiration Date V isits Requested Visits Authorized [id number] New Request 03/17/2024 1 1 Encounter Details Date Type Department Care Team (Latest Contact Info) Description 06/12/2024 6:45 EDT Treatment [facility] [address] [place], [place] [id number] Carlota Jin MD [address] [place] [address], [facility] [address] [place] [address] ESRD (end stage renal disease) ([facility]) (Primary Dx); Anemia of chronic renal failure, unspecified CKD stage; Hypoalbuminemia; Secondary hyperparathyroidism ([facility]) Social History Tobacco Use Types Packs/Day Years Used Date Smoking Tobacco: Every Day Cigarettes 1 26.1 Started: 1998 Smokeless Tobacco: Never Alcohol Use Standard Drinks/Week Comments Yes 0 (1 standard drink = 0.6 oz pur e alcohol) Socially [facility] Utilities Answer Date Recorded In [...] your living situation today? I have a [facility] place to live 05/30/2024 Think [...] In the past 12 months has th [employer], gas, oil, or water [employer] threatened to shut off services in your [...] - Temperature - - Respiratory Rate 16 06/12/2024 0619 EDT Oxygen Saturation - - Inhaled Oxygen Concentration - - Weight 79.7 kg (175 lb 11.3 oz) 06/12/2024 0623 EDT Height - - Body Mass [...] Flowsheet Note - Marcela Cox RN - 06/12/2024 1316 EDT 06/12/24 1040 Post-Hemodialysis Assessment Total Blood Processed (L) 90.84 Liters On Line Clearance: spKt/V 1.59 spKt/V Dialyzer Clearance Lightly streaked Treatment UFR (ml:kg:hr) 13.23 ml:kg:hr Final Critline Profile (%/hr) -1.29 Final Profile Profile A Critline refill Negative Fluid Removed (L) 4.3 L Post-Dialysis Scale Weight 94.6 kg (208 lb 8.9 oz) Wheelchair Weight 19 kg (41 lb 14.2 oz) Prosthesis Weight 0 kg (0 lb) Post-Treatment Weight (kg) 75.6 Treatment Weight Change (kg) 4.1 kg Day Target Weight (kg) 75.9 Post Sitting/Lying BP 176/88 Post Sitting/Lying pulse 67 Temp 36 ??C (96.8 ??F) Temp src Temporal Minutes Short -246 [...] Description 12/06/2024 6:45 EST Treatment [facility] [place] [address] [place], [place] [phone] Carlota Jin MD 1 [facility], [address] [phone] 12/08/2024 6:45 EST Treatment [facility] [place] [address] [place], [place] [id number] Carlota Jin MD [address] [phone] 12/11/2024 6:45 EST Treatment [facility] [place] [address] [place], [place] [id number] Carlota Jin MD [address] [phone] 12/13/2024 6:45 EST Treatment [facility] [place] [address] [place], [place] [id number] Carlota Jin MD [address] [phone] 12/15/2024 6:45 EST Treatment [facility] [place] [address] [place], [place] [id number] Carlota Jin MD [address] [place] [phone] 12/18/2024 6:45 EST Treatment [facility] [place] [address] [place], [place] [id number] Carlota Jin MD 1 [facility], [facility] [address] [place] [phone] 12/20/2024 6:45 EST Treatment [facility] [place] [address] [place], [place] [id number] Carlota Jin MD 1 [facility], [facility] [address] [place] [phone] 12/22/2024 6:45 EST Treatment [facility] [place] [address] [place], [place] [id number] Carlota Jin MD 1 [facility], [facility] [address] [place] [phone] 12/25/2024 6:45 EST Treatment [facility] [address] [place], [place] [id number] Carlota Jin MD 1 [facility], [facility] [address] [place] [phone] 12/27/2024 6:45 EST Treatment [facility] [address] [place], [place] [id number] Carlota Jin MD 1 [facility], [facility] [address] [place] [phone] 12/29/2024 6:45 EST Treatment [facility] [address] [place], [place] [id number] Carlota Jin MD 1 [facility], [facility] [address] [place] [phone] 01/01/2025 6:45 EDT Treatment [facility] [place] [address] [place] [address] Carlota Jin MD 1 [facility], [facility] [address] [place] [phone] 01/03/2025 6:45 EDT Treatment [facility] [place] [address] [place], [place] [id number] Carlota Jin MD 1 [facility], [address] [phone] 01/05/2025 6:45 EDT Treatment [facility] [place] [address] [place], [place] [phone] Carlota Jin MD 1 [facility], [address] [phone] 01/08/2025 6:45 EDT Treatment [facility] [place] [address] [place], [place] [id number] Carlota Jin MD 1 [facility], [facility] [address] [place] [phone] 01/10/2025 6:45 EDT Treatment [facility] [place] [address] [place], [place] [id number] Carlota Jin MD 1 [facility], [facility] [address] [place] [phone] 01/12/2025 6:45 EDT Treatment [facility] [place] [address] [place], [place] [id number] Carlota Jin MD 1 [facility], [facility] [address] [place] [phone] 01/15/2025 6:45 EDT Treatment [facility] [place] [address] [place], [place] [id number] Carlota Jin MD 1 [facility], [address] [phone] 01/17/2025 6:45 EDT Treatment [facility] [place] [address] [place], [place] [id number] Carlota Jin MD [address] [place] [address], [address] [phone] 01/19/2025 6:45 EDT Treatment [facility] [place] [address] [place], [place] [id number] Carlota Jin MD [address] [place] [address], [facility] [address] [place] [phone] 01/22/2025 6:45 EDT Treatment [facility] [place] [address] [place], [place] [phone] Carlota Jin MD 1 [facility], [facility] [address] [place] [phone] 01/24/2025 6:45 EDT Treatment [facility] [place] [address] [place], [place] [id number] Carlota Jin MD 1 [facility], [facility] [address] [place] [phone] 01/26/2025 6:45 EDT Treatment [facility] [place] [address] [place], [place] [id number] Carlota Jin MD 1 [facility], [facility] [address] [place] [phone] 01/29/2025 6:45 EDT Treatment [facility] [place] [address] [place], [place] [phone] Carlota Jin MD 1 [facility], [facility] [address] [place] [phone] 01/31/2025 6:45 EDT Treatment [facility] [place] [address] [place], [place] [id number] Carlota Jin MD 1 [facility], [facility] [address] [place] [phone] 02/02/2025 6:45 EDT Treatment [facility] [place] [address] [place], [place] [id number] Carlota Jin MD 1 [facility], [facility] [address] [place] [phone] 02/05/2025 6:45 EDT Treatment [facility] [place] [address] [place], [place] [id number] Carlota Jin MD 1 [facility], [facility] [address] [place] [phone] 02/07/2025 6:45 EDT Treatment [facility] [place] [address] [place], [place] [id number] Carlota Jin MD 1 [facility], [facility] [address] [place] [phone] 02/09/2025 6:45 EDT Treatment [facility] [place] [address] [place], [place] [phone] Carlota Jin MD 1 [facility], [facility] [address] [place] [phone] 02/12/2025 6:45 EDT Treatment [facility] [place] [address] [place], [place] [id number] Carlota Jin MD 1 [facility], [facility] [address] [place] [phone] 02/14/2025 6:45 EDT Treatment [facility] [address] [place] [address] Carlota Jin MD 1 [facility], [facility] [address] [place] [phone] 02/16/2025 6:45 EDT Treatment [facility] [address] [place], [place] [phone] Carlota Jin MD 1 [facility], [facility] [address] [place] [phone] 02/19/2025 6:45 EDT Treatment [facility] [place] [address] [place], [place] [phone] Carlota Jin MD 1 [facility], [facility] [address] [place] [phone] 02/21/2025 6:45 EDT Treatment [facility] [place] [address] [place], [place] [phone] Carlota Jin MD 1 [facility], [facility] [address] [place] [phone] documented as of this encounter Procedures Procedure Name Priority Date/Time Associated Diagnosis Comments HEMODIALYSIS Routine 06/12/2024 6:19 EDT ESRD (end stage renal disease) ([facility]) documented in this encounter Visit Diagnoses Diagnosis ESRD (end stage renal disease) ([facility])- Primary End stage renal disease Anemia of chronic renal failure, unspecified CKD stage Hypoalbuminemia Other disorders of plasma protein metabolism Secondary hyperparathyroidism ([facility]) Secondary hyperparathyroidism (of renal origin) documented in this encounter Administered Medications Inactive Administered Medications - up to 3 most recent administrations Medication Order MAR Action Action Date Dose Rate Site calcium carbonate (TUMS) tablet 500 mg (200 mg elemental calcium) 2 Tablet 2 Tablet, oral, ONCE IN DIALYSIS, 1 dose, On Wed06/12/24 at 0645, Routine, DialysisIndications:ESRD (end stage renal disease) ([facility]),Secondary hyperparathyroidism ([facility]) Given 06/12/2024 6:36 EDT 2 Tablets epoetin ken (EPOGEN) 20,000 unit/2 mL injection 12,000 Units 12,000 Units, intravenous, ONCE IN DIALYSIS, 1 dose, On Wed06/12/24 at 0645, Routine, DialysisIndications:ESRD (end stage renal disease) ([facility]),Anemia of chronic renal failure, unspecified CKD stage Given 06/12/2024 6:36 EDT 12,000 Units heparin injection 7,000 Units 7,000 Units, intravenous, ONCE IN DIALYSIS, 1 dose, On Wed06/12/24 at 0645, Routine, Dialysis, Now x1 bolus 3400 units to be given at the beginning of dialysis 900 units/hour to be given over the course of dialysis (7000 units total). Stop 1 hour prior to end of treatment. To be administered per Policy [id number].Indications:ESRD (end stage renal disease) ([facility]) Given 06/12/2024 6:36 EDT 7,000 Units LiquaCel liquid protein liquid 30 mL 30 mL, oral, ONCE IN DIALYSIS, 1 dose, On Wed06/12/24 at 0645, Patient's flavor preference: either, RoutineIndications:ESRD (end stage renal disease) ([facility]),Hypoalbuminemia Given 06/12/2024 6:36 EDT 30 mL documented in this encounter Orders Dialysis Count Last Ordered Date First Orde red Date HEMODIALYSIS 1 06/12/2024 documented in this encounter Care Teams Director Medical Relationship Specialty Start Date End Date Ken Greer MD [address] [place] [address] PCP - General 07/07/23 Kiel Powers Doping Supervisor Nephrology 05/31/24 documented as of this encounter
--- OUTSIDE RECORDS SUMMARY | 2024-12-05 12:03 | XMS_ITS | Encounter Summary ---
Author Organization [facility] Address [address] [place] [address] Care Team Providers Care Letterer Name Role Phone Ken Greer MD Primary Care Provider Reason for Visit * Episode Based Medications (Routine) - New Request Specialty Diagnoses / Procedures Referred By Nader pena Referred To Contact Diagnoses ESRD (end stage renal disease) ([facility]) Carlota Jin MD [address] [place] [phone] Phone: tel: fax: [facility] [place] [address] [place] [address] Phone: tel: fax: Referral ID Status Reason Start Date Expiration Date V isits Requested Visits Authorized [id number] New Request 03/17/2024 1 1 Encounter Details Date Type Department Care Team (Latest Contact Info) Description 05/24/2024 6:45 EDT Treatment [facility] [address] [place], [place] [phone] Carlota Jin MD [address] [place] [phone] ESRD (end stage renal disease) ([facility]) (Primary Dx); Anemia of chronic renal failure, unspecified CKD stage; Hypoalbuminemia; Secondary hyperparathyroidism ([facility]) Social History Tobacco Use Types Packs/Day Years Used Date Smoking Tobacco: Every Day Cigarettes Smokeless Tobacco: Never Alcohol Use Standard Drinks/Week Comments Yes 0 (1 standard drink = 0.6 oz pur e alcohol) Socially PHQ-2 Answer Date Recorded PHQ-2 SUBTOTAL 4 12/03/2023 Sex and Gender Information Value Date Recorded Sex Assigned at Not on file Legal Sex Male 18:49 EST Gender Identity Male 07/07/2023 14:11 EDT Sexual Orientation Not on file documented as of this encounter Last Filed Vital Signs Vital Sign Reading Time Taken Comments Blood Pressure - - Pulse - - Temperature - - Respiratory Rate 16 05/24/2024 0619 EDT Oxygen Saturation - - Inhaled Oxygen Concentration - - Weight 83.5 kg (184 lb 1.4 oz) 05/24/2024 0626 E DT Height - - Body Mass Index 26.41 12/20/2023 2202 EST documented in this encounter Functional Status * Are you deaf or do you have serious difficulty hearing? Answer Date of Assessment Author No 12/20/2023 14:00 Angélica Lazo RN * Are you blind or do you have serious difficulty seeing, even when wearing glasses? Answer Date of Assessment Author No 12/20/2023 14:00 Angélica Lazo RN * Do you have serious difficulty walking or climbing stairs? (5 years old or older) Answer Date of Assessment Author No 12/20/2023 14:00 Angélica Lazo RN * Do you have difficulty dressing or bathing? (5 years old or older) Answer Date of Assessment Author No 12/20/2023 14:00 Angélica Lazo RN * Because of a physical, mental, or emotional condition, do you have difficulty doing errands alone such as visiting a doctor's office or shopping? (15 years old or older) Answer Date of Assessment Author No 12/20/2023 14:00 Angélica Lazo RN documented as of this encounter Mental Status * Because of a physical, mental, or emotional condition, do you have serious difficulty concentrating, remembering, or making decisions? (5 years old or older) Answer Entry Date Author No 12/20/2023 14:00 Angélica Lazo RN documented in this encounter Miscellaneous Notes * Flowsheet Note - Keila Vizcarra RN - 05/24/2024 1332 EDT 05/24/24 1056 Post-Hemodialysis Assessment Total Blood Processed (L) 92.56 Liters On Line Clearance: spKt/V 1.58 spKt/V Dialyzer Clearance Lightly streaked Treatment UFR (ml:kg:hr) 11.95 ml:kg:hr Critline refill Not done Fluid Removed (L) 4.3 L Post-Dialysis Scale Weight 98 kg (216 lb 0.8 oz) Wheelchair Weight 18.4 kg (40 lb 9 oz) Prosthesis Weight 0 kg (0 lb) Post-Treatment Weight (kg) 79.6 Treatment Weight Change (kg) 3.9 kg Day Target Weight (kg) 79.7 Post Sitting/Lying BP (!) 192/94 Post Sitting/Lying pulse 67 Temp 36.3 ??C (97.3 ??F) Temp src Temporal Post access assessment Bruit present: Yes Thrill Present AVF/AFG Hemostasis achieved Yes Note 15 min hold w/clamps Orientation Alert and Oriented x3 Yes Time Yes Place Yes Person Yes Cooperative Yes Disoriented No Discharge Ambulation Methods Departs via w/c;With patient transport Wrap up items Patient Response to Treatment Tolerated treatment well. Removed 4300mL UF goal without difficulty. Comments Pt reported multiple instances of high anxiety throughout treatment. Suggested that he call his PCP for further assistance. No other concerns voiced post treatment. documented in this encounter Plan of Treatment Upcoming Encounters Date Type Department Care Team (Late st Contact Info) Description 12/06/2024 6:45 EST Treatment [facility] [place] [address] [place] [phone] Carl[facility] MD [facility] [address] [place] [phone] 12/08/2024 6:45 EST Treatment [facility] [place] [address] [place], [place] [phone] Carlota Jin MD 1 [facility], [facility] 2 [place] [phone] 12/11/2024 6:45 EST Treatment [facility] [place] [address] [place], [place] [phone] Carlota Jin MD 1 [facility], [facility] 2 [place] [phone] 12/13/2024 6:45 EST Treatment [facility] [place] [address] [place] [address] Carlota Jin MD 1 [facility], [address] [phone] 12/15/2024 6:45 EST Treatment [facility] [place] [address] [place], [place] [phone] Carlota Jin MD 1 [facility], [address] [phone] 12/18/2024 6:45 EST Treatment [facility] [place] [address] [place] [address] Carlota Jin MD 1 [facility], [facility] [address] [place] [phone] 12/20/2024 6:45 EST Treatment [facility] [place] [address] [place], [place] [phone] Carlota Jin MD 1 [facility], [facility] 2 [place] [phone] 12/22/2024 6:45 EST Treatment [facility] [place] [address] [place], [place] [phone] Carlota Jin MD 1 [facility], [facility] 2 [place] [phone] 12/25/2024 6:45 EST Treatment [facility] [place] [address] [place], [place] [phone] Carlota Jin MD 1 [facility], [facility] 2 [place] [phone] 12/27/2024 6:45 EST Treatment [facility] [place] [address] [place], [place] [phone] Carlota Jin MD 1 [facility], [facility] 2 [place] [phone] 12/29/2024 6:45 EST Treatment [facility] [place] [address] [place], [place] [phone] Carlota Jin MD 1 [facility], [facility] [address] [place] [phone] 01/01/2025 6:45 EDT Treatment [facility] [place] [address] [place], [place] [phone] Carlota Jin MD 1 [facility], [facility] 2 [place] [phone] 01/03/2025 6:45 EDT Treatment [facility] [place] [address] [place], [place] [phone] Carlota Jin MD 1 [facility], [facility] 2 [place] [phone] 01/05/2025 6:45 EDT Treatment [facility] [place] [address] [place] [address] Carlota Jin MD 1 [facility], [address] [phone] 01/08/2025 6:45 EDT Treatment [facility] [place] [address] [place], [place] [phone] Carlota Jin MD 1 [facility], [address] [phone] 01/10/2025 6:45 EDT Treatment [facility] [place] [address] [place], [place] [phone] Carlota Jin MD 1 [facility], [address] [phone] 01/12/2025 6:45 EDT Treatment [facility] [place] [address] [place], [place] [phone] Calrota Jin MD 1 [facility], [facility] 2 [place] [phone] 01/15/2025 6:45 EDT Treatment [facility] [place] [address] [place], [place] [phone] Carlota Jin MD 1 [facility], [facility] 2 [place] [phone] 01/17/2025 6:45 EDT Treatment [facility] [place] [address] [place], [place] [phone] Carlota Jin MD 1 [facility], [facility] 2 [place] [phone] 01/19/2025 6:45 EDT Treatment [facility] [place] [address] [place], [place] [phone] Carlota Jin MD 1 [facility], [facility] [address] [place] [phone] 01/22/2025 6:45 EDT Treatment [facility] [place] [address] [place] [address] Carlota Jin MD 1 [facility], [address] [phone] 01/24/2025 6:45 EDT Treatment [facility] [place] [address] [place], [place] [phone] Carlota Jin MD 1 [facility], [facility] 2 [place] [phone] 01/26/2025 6:45 EDT Treatment [facility] [place] [address] [place], [place] [phone] Carlota Jin MD 1 [facility], [facility] 2 [place] [phone] 01/29/2025 6:45 EDT Treatment [facility] [place] [address] [place], [place] [address] Carlota Jin MD 1 [facility], [facility] 2 [place] [phone] 01/31/2025 6:45 EDT Treatment [facility] [place] [address] [place], [place] [phone] Carlota Jin MD 1 [facility], [facility] 2 [place] [phone] 02/02/2025 6:45 EDT Treatment [facility] [place] [address] [place], [place] [phone] Carlota Jin MD 1 [facility], [address] [phone] 02/05/2025 6:45 EDT Treatment [facility] [place] [address] [place], [place] [phone] Carlota Jin MD [address] [phone] 02/07/2025 6:45 EDT Treatment [facility] [place] [address] [place], [place] [phone] Carlota Jin MD [address] [phone] 02/09/2025 6:45 EDT Treatment [facility] [place] [address] [place], [place] [phone] Carlota Jin MD 1 [facility] 2 [place] [phone] 02/12/2025 6:45 EDT Treatment [facility] [place] [address] [place], [place] [phone] Carlota Jin MD 1 [facility], [facility] 2 [place] [phone] 02/14/2025 6:45 EDT Treatment [facility] [place] [address] [place], [place] [phone] Carlota Jin MD 1 [facility], [facility] 2 [place] [phone] 02/16/2025 6:45 EDT Treatment [facility] [place] [address] [place], [place] [phone] Carlota Jin MD 1 [facility], [facility] 2 [place] [phone] 02/19/2025 6:45 EDT Treatment [facility] [place] [address] [place] [address] Carlota Jin MD 1 [facility], [facility] 2 [place] [phone] 02/21/2025 6:45 EDT Treatment [facility] [place] [address] [place], [place] [phone] Carlota Jin MD 1 [facility], [facility] 2 [place] [phone] documented as of this encounter Procedures Procedure Name Priority Date/Time Associated Diagnosis Comments COMPLETE BLOOD COUNT Routine 05/24/2024 6:20 EDT ESRD (end stage renal disease) ([facility]) HEMODIALYSIS Routine 05/24/2024 6:19 EDT ESRD (end stage renal disease) ([facility]) documented in this encounter Results * (ABNORMAL) COMPLETE BLOOD COUNT (05/24/2024 6:20 EDT) WBC 9.18 4.00 - 10.40 K/cmm 05/24/2024 21:33 [facility] RBC 3.67(L) 4.36 - 5.78 M/cmm 05/24/2024 21:33 [facility] Hemoglobin 9.8(L) 13.8 - 17.3 g/dL 05/24/2024 21:33 [facility] HCT 32.1(L) 39.5 - 50.2 % 05/24/2024 21:33 [facility] MCV 88 81 - 95 fL 05/24/2024 21:33 [facility] MCH 26.7(L) 27.6 - 33.0 pg 05/24/2024 21:33 [facility] MCHC 30.5(L) 32.8 - 36.4 g/dL 05/24/2024 21:33 [facility] RDW-CV 16.8(H) <14.2 % 05/24/2024 21:33 [facility] RDW-SD 53.9(H) <46.0 fl 05/24/2024 21:33 [facility] PLT 301 141 - 377 K/cmm 05/24/2024 21:33 [facility] MPV 11.6 9.5 - 12.7 fL 05/24/2024 21:33 [facility] Blood VENOUS BLOOD / Unknown Venipuncture / Unknown 05/24/2024 6:20 EDT 05/24/2024 6:20 EDT us Skye Gomez [facility]EMAT[facility] & PF4 ORDERABLES Final Result [facility] [address] [place] [phone] documented in this encounter Visit Diagnoses Diagnosis ESRD (end stage renal disease) ([facility])- Primary End stage renal disease Anemia of chronic renal failure, unspecified CKD stage Hypoalbuminemia Other disorders of plasma protein metabolism Secondary hyperparathyroidism ([facility]) Secondary hyperparathyroidism (of renal origin) documented in this encounter Administered Medications Inactive Administered Medications - up to 3 most recent administrations Medication Order MAR Action Action Date Dose Rate Site acetaminophen (TYLENOL) tablet 650 mg 650 mg, oral, EVERY 4 HOURS PRN, Starting on Wed05/24/24 at 0621, Until Wed05/24/24 at 1532, Pain, Routine, DialysisIndications:ESRD (end stage renal disease) ([facility]) Given 05/24/2024 7:01 EDT 650 mg calcium carbonate (TUMS) tablet 500 mg (200 mg elemental calcium) 2 Tablet 2 Tablet, oral, ONCE IN DIALYSIS, 1 dose, On Wed05/24/24 at 0645, Routine, DialysisIndications:ESRD (end stage renal disease) ([facility]),Secondary hyperparathyroidism ([facility]) Given 05/24/2024 7:00 EDT 2 Tablets epoetin ken (EPOGEN) 20,000 unit/2 mL injection 10,000 Units 10,000 Units, intravenous, ONCE IN DIALYSIS, 1 dose, On Wed05/24/24 at 0645, Routine, DialysisIndications:ESRD (end stage renal disease) ([facility]),Anemia of chronic renal failure, unspecified CKD stage Given 05/24/2024 7:00 EDT 10,000 Units heparin injection 7,000 Units 7,000 Units, intravenous, ONCE IN DIALYSIS, 1 dose, On Wed05/24/24 at 0645, Routine, Dialysis, Now x1 bolus 3400 units to be given at the beginning of dialysis 900 units/hour to be given over the course of dialysis (7000 units total). Stop 1 hour prior to end of treatment. To be administered per Policy [id number].Indications:ESRD (end stage renal disease) ([facility]) Given 05/24/2024 7:00 EDT 7,000 Units LiquaCel liquid protein liquid 30 mL 30 mL, oral, ONCE IN DIALYSIS, 1 dose, On Wed05/24/24 at 0645, Patient's flavor preference: either, RoutineIndications:ESRD (end stage renal disease) ([facility]),Hypoalbuminemia Given 05/24/2024 7:00 EDT 30 mL documented in this encounter Orders Dialysis Count Last Ordered Date First Orde red Date HEMODIALYSIS 1 05/24/2024 documented in this encounter Care Teams Letterer Relationship Specialty Start Date End Date Ken Greer MD [address] [place] [address] PCP - General 07/07/23 documented as of this encounter
--- OUTSIDE RECORDS SUMMARY | 2024-12-05 12:03 | XMS_ITS | Encounter Summary ---
Author Organization [facility] Address [address] [place] [address] Care Team Providers Care Refrigeration Manager Name Role Phone Ken Greer MD Primary Care Provider [phone] Encounter Details Date Type Department Care Team (Late st Contact Info) Description 05/29/2024 Documentation Visit [facility] [address] [place] [address] Alexa Estrada [facility] [address] [place] [address] Social History Tobacco Use Types Packs/Day Years Used Date Smoking Tobacco: Every Day Cigarettes Smokeless Tobacco: Never Alcohol Use Standard Drinks/Week Comments Yes 0 (1 standard drink = 0.6 oz pur e alcohol) Socially [facility] Utilities Answer Date Recorded In the past 12 months has e [employer], gas, oil, or water Petsy threatened to shut off services in your [...] any time in the past 12 m [facility], were you homeless or living [...] Angélica Lazo RN documented in this encounter Progress Notes * Alexa Estrada, BLEACH PLANT OPERATOR - 05/29/2024 1506 EDT Dish Person's Monthly Assessment UPDATE: SW met with pt and his - reports that pharmacy coverage does not cover Lokelma- SW advisedto let her pharmacy know that the pt was approved for Vpharm to see if this brings the cost down- pt may need to call Medicaid to see if he needs a Vpharm card sent to him. SW continues to submit mileage to the [employer] for reimbursement, the pt is working with a [place] on Aging therapeutic case manager to apply for Choices for care. Pt is going to ED at [facility] due to heart issues while on dialysis. His is bringing him up. SW will continue to follow. Current Living Situation: Lives with family and Lives with friends Lives with family Pt lives with his , Hoda, in their apartment in [place]. He rents the apartment and has a [...] Transportation Status: Transportation: Drives Self Payor: Receives [employer] mileage reimbursement. Change in Physical/Medical Status and [...] Patient/Family Strengths: Pt is friendly and engaging Interests/Spiritual/Temple Practice: No spiritual practices Depression Screening: Is [...] Treatment [facility] [place] [address] [place], [place] [id number] Carlota Jin MD [address] [place] [address] [phone] 12/08/2024 6:45 EST Treatment [facility] [address] [place], [place] [phone] Carlota Jin MD [address] [place] [address] [phone] 12/11/2024 6:45 EST Treatment [facility] [address] [place], [place] [phone] Carlota Jin MD [address] [place] [address] [phone] 12/13/2024 6:45 EST Treatment [facility] [address] [place], [place] [phone] Carlota Jin MD [address] [place] [address] [phone] 12/15/2024 6:45 EST Treatment [facility] [address] [place], [place] [phone] Carlota Jin MD 1 [facility], [facility] [address] [place] [phone] 12/18/2024 6:45 EST Treatment [facility] [place] [address] [place] [address] Carlota Jin MD 1 [facility], [facility] [address] [place] [phone] 12/20/2024 6:45 EST Treatment [facility] [place] [address] [place] [address] Carlota Jin MD 1 [facility], [facility] [address] [place] [phone] 12/22/2024 6:45 EST Treatment [facility] [place] [address] [place] [address] Carlota Jin MD 1 [facility], [facility] [address] [place] [phone] 12/25/2024 6:45 EST Treatment [facility] [place] [address] [place] [address] Carlota Jin MD 1 [facility], [facility] [address] [place] [phone] 12/27/2024 6:45 EST Treatment [facility] [place] [address] [place], [place] [phone] Carlota Jin MD 1 [facility], [facility] [address] [place] [phone] 12/29/2024 6:45 EST Treatment [facility] [place] [address] [place], [place] [phone] Carlota Jin MD 1 [facility], [facility] [address] [place] [phone] 01/01/2025 6:45 EDT Treatment [facility] [place] [address] [place], [place] [phone] Carlota Jin MD 1 [facility], [facility] [address] [place] [phone] 01/03/2025 6:45 EDT Treatment [facility] [place] [address] [place], [place] [address] Carlota Jin MD 1 [facility], [facility] [address] [place] [phone] 01/05/2025 6:45 EDT Treatment [facility] [place] [address] [place], [place] [address] Carlota Jin MD 1 [facility], [facility] [address] [place] [phone] 01/08/2025 6:45 EDT Treatment [facility] [place] [address] [place], [place] [phone] Carlota Jin MD 1 [facility], [facility] [address] [place] [phone] 01/10/2025 6:45 EDT Treatment [facility] [place] [address] [place], [place] [address] Carlota Jin MD 1 [facility], [address] [phone] 01/12/2025 6:45 EDT Treatment [facility] [place] [address] [place] [address] Carlota Jin MD 1 [facility], [address] [phone] 01/15/2025 6:45 EDT Treatment [facility] [place] [address] [place], [place] [phone] Carlota Jin MD 1 [facility], [address] [phone] 01/17/2025 6:45 EDT Treatment [facility] [place] [address] [place], [place] [phone] Carlota Jin MD 1 [facility], [address] [phone] 01/19/2025 6:45 EDT Treatment [facility] [place] [address] [place], [place] [phone] Carlota Jin MD 1 [facility], [address] [phone] 01/22/2025 6:45 EDT Treatment [facility] [place] [address] [place], [place] [phone] Carlota Jin MD 1 [facility], [facility] [address] [place] [phone] 01/24/2025 6:45 EDT Treatment [facility] [place] [address] [place], [place] [phone] Carlota Jin MD 1 [facility], [facility] [address] [place] [phone] 01/26/2025 6:45 EDT Treatment [facility] [place] [address] [place], [place] [phone] Carlota Jin MD 1 [facility], [facility] [address] [place] [phone] 01/29/2025 6:45 EDT Treatment [facility] [place] [address] [place], [place] [phone] Carlota Jin MD [address] [place] [address], [address] [phone] 01/31/2025 6:45 EDT Treatment [facility] [place] [address] [place], [place] [phone] Carlota Jin MD 1 [facility], [facility] [address] [place] [phone] 02/02/2025 6:45 EDT Treatment [facility] [place] [address] [place], [place] [phone] Carlota Jin MD 1 [facility], [facility] [address] [place] [phone] 02/05/2025 6:45 EDT Treatment [facility] [place] [address] [place], [place] [phone] Carlota Jin MD 1 [facility], [facility] [address] [place] [phone] 02/07/2025 6:45 EDT Treatment [facility] [place] [address] [place], [place] [phone] Carlota Jin MD 1 [facility], [address] [phone] 02/09/2025 6:45 EDT Treatment [facility] [place] [address] [place], [place] [phone] Carlota Jin MD 1 [facility], [address] [phone] 02/12/2025 6:45 EDT Treatment [facility] [place] [address] [place], [place] [phone] Carlota Jin MD 1 [facility], [address] [phone] 02/14/2025 6:45 EDT Treatment [facility] [place] [address] [place], [place] [phone] Carlota Jin MD 1 [facility], [facility] [address] [place] [phone] 02/16/2025 6:45 EDT Treatment [facility] [place] [address] [place], [place] [phone] Carlota Jin MD 1 [facility], [facility] [address] [place] [phone] 02/19/2025 6:45 EDT Treatment [facility] [address] [place], [place] [id number] Carlota Jin MD 1 [facility], [facility] [address] [place] [phone] 02/21/2025 6:45 EDT Treatment [facility] [address] [place] [address] Carlota Jin MD 1 [facility], [facility] [address] [place] [phone] documented as of this encounter Visit Diagnoses Not on filedocumented in this encounter Care Teams Refrigeration Manager Relationship Specialty Start Date End Date [place] [address] PCP - General 07/07/23 documented as of this encounter
--- OUTSIDE RECORDS SUMMARY | 2024-12-05 12:03 | XMS_ITS | Encounter Summary ---
Author Organization [facility] Address [address] [place] [address] Care Team Providers Care Oem Sales Manager Name Role Phone Ken Greer MD Primary Care Provider [phone] Encounter Details Date Type Department Care Team (Late st Contact Info) Description 05/17/2024 Orders Only [facility] [place] [address] [place] [address] Valery Rice, VIDYA [address] [place] [address] Pre-transplant evaluation for kidney transplant (Primary Dx) [...] of Assessment Author No 12/20/2023 14:00 Angélica Lazo, VIDYA * Are you blind or do you [...] Progress Notes * Valery Rice RN - 05/17/2024 0932 EDT Orders placed for pre-evaluation labs. Pt will get done at [facility] lab after their appointment on 05/18/2024. Cannot be done at dialysis due to type of testing performed. Please stop at the [facility] lab on the 1st floor to get labs drawn before you leave. documented in this encounter Plan of Treatment Upcoming Encounters Date Type Department Care Team (Late st Contact Info) Description 12/06/2024 6:45 EST Treatment [facility] [place] [address] [place], [place] [phone] Carlota Jin MD [address] [place], [place] [address], [facility] [address] [place] [phone] 12/08/2024 6:45 EST Treatment [facility] [place] [address] [place], [place] [phone] Carlota Jin MD 1 [facility], [facility] [address] [place] [phone] 12/11/2024 6:45 EST Treatment [facility] [place] [address] [place], [place] [phone] Carlota Jin MD 1 [facility], [facility] [address] [place] [phone] 12/13/2024 6:45 EST Treatment [facility] [place] [address] [place], [place] [phone] Carlota Jin MD 1 [facility], [facility] [address] [place] [phone] 12/15/2024 6:45 EST Treatment [facility] [place] [address] [place], [place] [id number] Carlota Jin MD 1 [facility], [facility] [address] [place] [phone] 12/18/2024 6:45 EST Treatment [facility] [place] [address] [place], [place] [id number] Carlota Jin MD 1 [facility], [facility] [address] [place] [phone] 12/20/2024 6:45 EST Treatment [facility] [place] [address] [place], [place] [phone] Carlota Jin MD 1 [facility], [facility] [address] [place] [phone] 12/22/2024 6:45 EST Treatment [facility] [place] [address] [place], [place] [id number] Carlota Jin MD 1 [facility], [facility] [address] [place] [phone] 12/25/2024 6:45 EST Treatment [facility] [place] [address] [place], [place] [id number] Carlota Jin MD 1 [facility], [facility] [address] [place] [phone] 12/27/2024 6:45 EST Treatment [facility] [address] [place], [place] [id number] Carlota Jin MD 1 [facility], [facility] [address] [place] [phone] 12/29/2024 6:45 EST Treatment [facility] [address] [place] [address] Carlota Jin MD 1 [facility], [facility] [address] [place] [phone] 01/01/2025 6:45 EDT [facility] [address] [place] [address] Carlota Jin MD 1 [facility], [facility] [address] [place] [phone] 01/03/2025 6:45 EDT Treatment [facility] [address] [place], [place] [id number] Carlota Jin MD 1 [facility], [facility] [address] [place] [phone] 01/05/2025 6:45 EDT Treatment [facility] [place] [address] [place], [place] [id number] Carlota Jin MD 1 [facility], [facility] [address] [place] [phone] 01/08/2025 6:45 EDT Treatment [facility] [place] [address] [place], [place] [id number] Carlota Jin MD 1 [facility], [facility] [address] [place] [phone] 01/10/2025 6:45 EDT Treatment [facility] [place] [address] [place], [place] [id number] Carlota Jin MD [address] [place] [address], [facility] [address] [place] [phone] 01/12/2025 6:45 EDT Treatment [facility] [place] [address] [place], [place] [id number] Carlota Jin MD [address] [place] [address], [facility] [address] [place] [phone] 01/15/2025 6:45 EDT Treatment [facility] [place] [address] [place], [place] [id number] Carlota Jin MD 1 [facility], [facility] [address] [place] [phone] 01/17/2025 6:45 EDT Treatment [facility] [place] [address] [place], [place] [phone] Carlota Jin MD 1 [facility], [facility] [address] [place] [phone] 01/19/2025 6:45 EDT Treatment [facility] [place] [address] [place], [place] [id number] Carlota Jin MD 1 [facility], [facility] [address] [place] [phone] 01/22/2025 6:45 EDT Treatment [facility] [place] [address] [place], [place] [id number] Carlota Jin MD 1 [facility], [address] [phone] 01/24/2025 6:45 EDT Treatment [facility] [place] [address] [place], [place] [id number] Carlota Jin MD 1 [facility], [facility] [address] [place] [phone] 01/26/2025 6:45 EDT Treatment [facility] [place] [address] [place], [place] [id number] Carlota Jin MD 1 [facility], [facility] [address] [place] [phone] 01/29/2025 6:45 EDT Treatment [facility] [place] [address] [place], [place] [id number] Carlota Jin MD 1 [facility], [facility] [address] [place] [phone] 01/31/2025 6:45 EDT Treatment [facility] [place] [address] [place], [place] [id number] Carlota Jin MD 1 [facility], [facility] [address] [place] [phone] 02/02/2025 6:45 EDT Treatment [facility] [place] [address] [place], [place] [id number] Carlota Jin MD 1 [facility], [facility] [address] [place] [phone] 02/05/2025 6:45 EDT Treatment [facility] [place] [address] [place], [place] [id number] Carlota Jin MD 1 [facility], [address] [phone] 02/07/2025 6:45 EDT Treatment [facility] [place] [address] [place], [place] [id number] Carlota Jin MD 1 [facility], [facility] [address] [place] [phone] 02/09/2025 6:45 EDT Treatment [facility] [place] [address] [place], [place] [id number] Carlota Jin MD 1 [facility], [facility] [address] [place] [phone] 02/12/2025 6:45 EDT Treatment [facility] [place] [address] [place], [place] [id number] Carlota Jin MD 1 [facility], [address] [phone] 02/14/2025 6:45 EDT Treatment [facility] [place] [address] [place], [place] [id number] Carlota Jin MD [address] [place] [address] [phone] 02/16/2025 6:45 EDT Treatment [facility] [place] [address] [place], [place] [id number] Carlota Jin MD [address] [place] [address] [phone] 02/19/2025 6:45 EDT Treatment [facility] [place] [address] [place], [place] [id number] Carlota Jin MD 1 [facility], [address] [phone] 02/21/2025 6:45 EDT Treatment [facility] [place] [address] [place], [place] [id number] Carlota Jin MD [address] [place] [address] [phone] Scheduled Orders Name Type Priority Associated Diagnoses Orde r Schedule GLUCOSE 6-PHOSPHATE DEHYDROGENASE ENZYME ACTIVITY,BLD Lab Routine Pre-transplant evaluation for kidney transplant Expected: 05/18/2024 (Approximate), Expires: 05/24/2025 ABO/RH Blood Bank Routine Pre-transplant evaluation for kidney transplant Expected: 05/18/2024 (Approximate), Expires: 05/19/2025 CMV IGG Lab Routine Pre-transplant evaluation for kidney transplant Expected: 05/18/2024 (Approximate), Expires: 05/19/2025 COMPLETE BLOOD COUNT AND DIFFERENTIAL Lab Routine Pre-transplant evaluation for kidney transplant Expected: 05/18/2024 (Approximate), Expires: 05/19/2025 COMPREHENSIVE METABOLIC PANEL (CMP) Lab Routine Pre-transplant evaluation for kidney transplant Expected: 05/18/2024 (Approximate), Expires: 05/19/2025 ELIANA-ALVARADO PANEL Lab Routine Pre-transplant evaluation for kidney transplant Expected: 05/18/2024 (Approximate), Expires: 05/19/2025 HEMOGLOBIN A1C Lab Routine Pre-transplant evaluation for kidney transplant Expected: 05/18/2024 (Approximate), Expires: 05/19/2025 HEPATITIS B PROFILE Lab Routine Pre-transplant evaluation for kidney transplant Expected: 05/18/2024 (Approximate), Expires: 05/19/2025 HEPATITIS C AB W REFLEX TO HCV RNA BY PCR Lab Routine Pre-transplant evaluation for kidney transplant Expected: 05/18/2024 (Approximate), Expires: 05/19/2025 HERPES SIMPLEX VIRUS (HSV) TYPE 1 & 2 AB, IGG Lab Routine Pre-transplant evaluation for kidney transplant Expected: 05/18/2024 (Approximate), Expires: 05/17/2025 HIV 1/2 ANTIGEN AND ANTIBODY, 4TH GENERATION Lab Routine Pre-transplant evaluation for kidney transplant Expected: 05/18/2024 (Approximate), Expires: 05/19/2025 HTLV I/II ANTIBODY SCREEN Lab Routine Pre-transplant evaluation for kidney transplant Expected: 05/18/2024 (Approximate), Expires: 05/19/2025 IBC Lab Routine Pre-transplant evaluation for kidney transplant Expected: 05/18/2024 (Approximate), Expires: 05/19/2025 MEASLES IGG AB Lab Routine Pre-transplant evaluation for kidney transplant Expected: 05/18/2024 (Approximate), Expires: 05/17/2025 MUMPS ANTIBODY IGG Lab Routine Pre-transplant evaluation for kidney transplant Expected: 05/18/2024 (Approximate), Expires: 05/19/2025 PHOSPHORUS Lab Routine Pre-transplant evaluation for kidney transplant Expected: 05/18/2024 (Approximate) PROTIME Lab Routine Pre-transplant evaluation for kidney transplant Expected: 05/18/2024 (Approximate), Expires: 05/19/2025 PSA TOTAL AND FREE, SERUM Lab Routine Pre-transplant evaluation for kidney transplant Expected: 05/18/2024 (Approximate), Expires: 05/17/2025 PTH INTACT Lab Routine Pre-transplant evaluation for kidney transplant Expected: 05/18/2024 (Approximate), Expires: 05/17/2025 PTT Lab Routine Pre-transplant evaluation for kidney transplant Expected: 05/18/2024 (Approximate), Expires: 05/19/2025 QUANTIFERON TB GOLD PLUS Lab Routine Pre-transplant evaluation for kidney transplant Expected: 05/18/2024 (Approximate), Expires: 05/17/2025 RUBELLA IGG ANTIBODY Lab Routine Pre-transplant evaluation for kidney transplant Expected: 05/18/2024 (Approximate), Expires: 05/19/2025 SYPHILIS SEROLOGY Lab Routine Pre-transplant evaluation for kidney transplant Expected: 05/18/2024 (Approximate), Expires: 05/19/2025 VARICELLA IGG ANTIBODY Lab Routine Pre-transplant evaluation for kidney transplant Expected: 05/18/2024 (Approximate), Expires: 05/19/2025 documented as of this encounter Visit Diagnoses Diagnosis Pre-transplant evaluation for kidney transplant- Primary Other specified pre-operative examination documented in this encounter Care Teams Oem Sales Manager Relationship Specialty Start Date End Date Ken Greer MD [address] [place] [address] PCP - General 07/07/23 documented as of this encounter
--- OUTSIDE RECORDS SUMMARY | 2024-12-05 12:03 | XMS_ITS | Encounter Summary ---
Author Organization [facility] Address [address] [place] [address] Care Team Providers Care Networking Technology Instructor Name Role Phone Ken Greer MD Primary Care Provider [phone] Reason for Visit * Episode Based Medications (Routine) - New Request Specialty Diagnoses / Procedures Referred By Nader pena Referred To Contact Diagnoses ESRD (end stage renal disease) ([facility]) Carlota Jin MD [address] [place] [phone] Phone: tel: fax: [facility] [place] [address] [place] [address] Phone: tel: fax: Referral ID Status Reason Start Date Expiration Date V isits Requested Visits Authorized [id number] New Request 03/17/2024 1 1 Encounter Details Date Type Department Care Team (Latest Contact Info) Description 05/17/2024 6:45 EDT Treatment [facility] [address] [place], [place] [phone] Carlota Jin MD [address] [place] [phone] ESRD (end stage renal disease) ([facility]) (Primary Dx); Anemia of chronic renal failure, unspecified CKD stage; Hypoalbuminemia; Secondary hyperparathyroidism ([facility]) Social [...] - Temperature - - Respiratory Rate 18 05/17/2024 0622 EDT Oxygen Saturation - - Inhaled Oxygen Concentration - - Weight 79.7 kg (175 lb 11.3 oz) 05/17/2024 0624 EDT Height - - Body Mass [...] documented in this encounter Progress Notes * Keila Vizcarra RN - 05/17/2024 0645 EDT Routine Crit-line assessment May 17, 2024 % BV change: -6.8% Overall Profile: A H1: 28.2 H2: 28.0 Assessment: Based on this information, it appears that the patient is at his dry weight despite hislack of cramping and other intradyalitic symptoms documented in this encounter Miscellaneous Notes * Flowsheet Note - Keila Vizcarra RN - 05/17/2024 1148 EDT 05/17/24 1040 Post-Hemodialysis Assessment Total Blood Processed (L) 91.78 Liters On Line Clearance: spKt/V 1.61 spKt/V Dialyzer Clearance Lightly streaked Treatment UFR (ml:kg:hr) 7.7 ml:kg:hr Final Critline Profile (%/hr) -1.69 Final Profile Profile A Critline refill Negative (H1: 28.2 H2: 28.0) Fluid Removed (L) 2.7 L Post-Dialysis Scale Weight 95.7 kg (210 lb 15.7 oz) Wheelchair Weight 18.4 kg (40 lb 9 oz) Prosthesis Weight 0 kg (0 lb) Post-Treatment Weight (kg) 77.3 Treatment Weight Change (kg) 2.4 kg Day Target Weight (kg) 77.7 Post Sitting/Lying BP (!) 185/93 Post Sitting/Lying pulse 67 Temp 36.1 ??C (97 ??F) Temp src Temporal Minutes Short -242 Post access assessment Bruit present: Yes Thrill Present AVF/AFG Hemostasis achieved Yes Note Patient held for 10mins with blue clamps Orientation Alert and Oriented x3 Yes Time Yes Place Yes Person Yes Cooperative Yes Disoriented No Discharge Ambulation Methods Departs via w/c Wrap up items Patient Response to Treatment Tolerated tx well. Removed 2700mL UF goal without difficulty. UF goaladjusted per crit line, vital signs, and pt tolerance. Comments No issues during tx, no concerns voiced post tx. * Dialysis Rounding - Skye Gomez NP - 05/17/2024 0682 EDT Dialysis Provider's Routine Assessment The visit was conducted via telehealth (audio/[facility]) [facility] and the provider from their [...] unit; Patient location state: Visit Location State: [place] The location of the provider: Office; Provider location state: Visit Location State: [place] Gerson Bruner was seen and examined as appropriate during Dialysis. Pertinent lab results were reviewed. Changes since last visit: None Changes to current prescriptions/orders: None Pt resting quietly on dialysis Skye Gomez NP documented in this encounter Plan of Treatment Upcoming Encounters Date Type Department Care Team (Late st Contact Info) Description 12/06/2024 6:45 EST Treatment [facility] [address] [place] [address] Carlota Jin MD [facility] [address] [place] [phone] 12/08/2024 6:45 EST Treatment [facility] [address] [place] [address] Carlota Jin MD 1 [facility], [facility] [address] [place] [phone] 12/11/2024 6:45 EST Treatment [facility] [place] [address] [place], [place] [phone] Carlota Jin MD 1 [facility], [facility] [address] [place] [phone] 12/13/2024 6:45 EST Treatment [facility] - [place] [address] [place], [place] [phone] Carlota Jin MD 1 [facility], [facility] [address] [place] [phone] 12/15/2024 6:45 EST Treatment [facility] - [place] [address] [place], [place] [phone] Carlota Jin MD 1 [facility], [facility] [address] [place] [phone] 12/18/2024 6:45 EST Treatment [facility] Dial[facility] [address] [place], [place] [phone] Carlota Jin MD 1 [facility], [facility] [address] [place] [phone] 12/20/2024 6:45 EST Treatment [facility] [address] [place], [place] [phone] Carlota Jin MD 1 [facility], [facility] [address] [place] [phone] 12/22/2024 6:45 EST Treatment [facility] [place] [address] [place], [place] [phone] Carlota Jin MD 1 [facility], [facility] [address] [place] [phone] 12/25/2024 6:45 EST Treatment [facility] [place] [address] [place], [place] [phone] Carlota Jin MD 1 [facility], [facility] [address] [place] [phone] 12/27/2024 6:45 EST Treatment [facility] [place] [address] [place], [place] [phone] Carlota Jin MD 1 [facility], [facility] [address] [place] [phone] 12/29/2024 6:45 EST Treatment [facility] - [place] [address] [place], [place] [phone] Carlota Jin MD 1 [facility], [facility] [address] [place] [phone] 01/01/2025 6:45 EDT Treatment [facility] - [place] [address] [place], [place] [phone] Carlota Jin MD 1 [facility], [facility] [address] [place] [phone] 01/03/2025 6:45 EDT Treatment [facility] [place] [address] [place], [place] [phone] Carlota Jin MD 1 [facility], Level [address] [place] [phone] 01/05/2025 6:45 EDT Treatment [facility] [place] [address] [place], [place] [phone] Carlota Jin MD 1 [facility], [facility] [address] [place] [phone] 01/08/2025 6:45 EDT Treatment [facility] [place] [address] [place], [place] [phone] Carlota Jin MD 1 [facility], [facility] [address] [place] [phone] 01/10/2025 6:45 EDT Treatment [facility] [place] [address] [place], [place] [phone] Carlota Jin MD 1 [facility], [facility] [address] [place] [phone] 01/12/2025 6:45 EDT Treatment [facility] [place] [address] [place] [address] Carlota Jin MD 1 [facility], [facility] [address] [place] [phone] 01/15/2025 6:45 EDT Treatment [facility] [place] [address] [place], [place] [phone] Carlota Jin MD 1 [facility], [facility] 2 [place] [phone] 01/17/2025 6:45 EDT Treatment [facility] - [place] [address] [place], [place] [phone] Carlota Jin MD 1 [facility], [facility] [address] [place] [phone] 01/19/2025 6:45 EDT Treatment [facility] - [place] [address] [place], [place] [phone] Carlota Jin MD 1 [facility], [facility] 2 [place] [phone] 01/22/2025 6:45 EDT Treatment [facility] - [place] [address] [place], [place] [phone] Carlota Jin MD [address] [place] [address], [facility] [address] [place] [phone] 01/24/2025 6:45 EDT Treatment [facility] [place] [address] [place], [place] [phone] Carlota Jin MD [address] [place] [address], [facility] [address] [place] [phone] 01/26/2025 6:45 EDT Treatment [facility] - [place] [address] [place], [place] [phone] Carlota Jin MD 1 [facility], [facility] 2 [place] [phone] 01/29/2025 6:45 EDT Treatment [facility] - [place] [address] [place], [place] [phone] Carlota Jin MD 1 [facility], [facility] 2 [place] [phone] 01/31/2025 6:45 EDT Treatment [facility] [place] [address] [place], [place] [phone] Carlota Jin MD 1 [facility], [facility] 2 [place] [phone] 02/02/2025 6:45 EDT Treatment [facility] [place] [address] [place], [place] [phone] Carlota Jin MD 1 [facility], [facility] 2 [place] [phone] 02/05/2025 6:45 EDT Treatment [facility] [place] [address] [place], [place] [phone] Carlota Jin MD 1 [facility], [facility] 2 [place] [phone] 02/07/2025 6:45 EDT Treatment [facility] [place] [address] [place], [place] [phone] Carlota Jin MD 1 [facility], [facility] 2 [place] [phone] 02/09/2025 6:45 EDT Treatment [facility] [place] [address] [place], [place] [phone] Carlota Jin MD 1 [facility], [facility] 2 [place] [phone] 02/12/2025 6:45 EDT Treatment [facility] [place] [address] [place], [place] [phone] Carlota Jin MD 1 [facility], [address] [phone] 02/14/2025 6:45 EDT Treatment [facility] [place] [address] [place], [place] [phone] Carlota Jin MD 1 [facility], [address] [phone] 02/16/2025 6:45 EDT Treatment [facility] - [place] [address] [place], [place] [phone] Carlota Jin MD [address] [phone] 02/19/2025 6:45 EDT Treatment [facility] - [place] [address] [place], [place] [phone] Carlota Jin MD [address] [phone] 02/21/2025 6:45 EDT Treatment [facility] [address] [place], [place] [phone] Carlota Jin MD 1 [facility], [address] [phone] documented as of this encounter Procedures Procedure Name Priority Date/Time Associated Diagnosis Comments COMPLETE BLOOD COUNT Routine 05/17/2024 6:23 EDT ESRD (end stage renal disease) ([facility]) HEMODIALYSIS Routine 05/17/2024 6:22 EDT ESRD (end stage renal disease) ([facility]) documented in this encounter Results * (ABNORMAL) COMPLETE BLOOD COUNT (05/17/2024 6:23 EDT) WBC 10.12 4.00 - 10.40 K/cmm 05/17/2024 21:33 [facility] RBC 3.44(L) 4.36 - 5.78 M/cmm 05/17/2024 21:33 [facility] Hemoglobin 9.3(L) 13.8 - 17.3 g/dL 05/17/2024 21:33 [facility] HCT 29.7(L) 39.5 - 50.2 % 05/17/2024 21:33 [facility] MCV 86 81 - 95 fL 05/17/2024 21:33 [facility] MCH 27.0(L) 27.6 - 33.0 pg 05/17/2024 21:33 [facility] MCHC 31.3(L) 32.8 - 36.4 g/dL 05/17/2024 21:33 [facility] RDW-CV 16.7(H) <14.2 % 05/17/2024 21:33 [facility] RDW-SD 52.6(H) <46.0 fl 05/17/2024 21:33 [facility] PLT 339 141 - 377 K/cmm 05/17/2024 21:33 [facility] MPV 11.6 9.5 - 12.7 fL 05/17/2024 21:33 [facility] Blood VENOUS BLOOD / Unknown Venipuncture / Unknown 05/17/2024 6:23 EDT 05/17/2024 6:23 EDT us Skye Gomez [employer]ASSROOM MONITOR HEMATOLOGY & PF4 ORDERABLES Final Result [facility] [address] [place] [address] documented in this encounter Visit Diagnoses Diagnosis ESRD (end stage renal disease) ([facility] Primary End stage renal disease Anemia of [...] oral, ONCE IN DIALYSIS, 1 dose, On Wed05/17/24 at 0645, Routine, DialysisIndications:ESRD (end stage renal disease) ([facility]),Secondary hyperparathyroidism ([facility]) Given 05/17/2024 6:46 EDT 2 Tablets epoetin ken (EPOGEN) 20,000 unit/2 mL injection 10,000 Units 10,000 Units, intravenous, ONCE IN DIALYSIS, 1 dose, On Wed05/17/24 at 0645, Routine, DialysisIndications:ESRD (end stage renal disease) ([facility]),Anemia of chronic renal failure, unspecified CKD stage Given 05/17/2024 6:46 EDT 10,000 Units heparin injection 7,000 Units 7,000 Units, intravenous, ONCE IN DIALYSIS, 1 dose, On Wed05/17/24 at 0645, Routine, Dialysis, Now x1 bolus 3400 units to be given at the beginning of dialysis 900 units/hour to be given over the course of dialysis (7000 units total). Stop 1 hour prior to end of treatment. To be administered per Policy [id number].Indications:ESRD (end stage renal disease) ([facility]) Given 05/17/2024 6:46 EDT 7,000 Units LiquaCel liquid protein liquid 30 mL 30 mL, oral, ONCE IN DIALYSIS, 1 dose, On Wed05/17/24 at 0645, Patient's flavor preference: either, RoutineIndications:ESRD (end stage renal disease) ([facility]),Hypoalbuminemia Given 05/17/2024 6:46 EDT 30 mL documented in this encounter Orders Dialysis Count Last Ordered Date First Orde red Date HEMODIALYSIS 1 05/17/2024 documented in this encounter Care Teams Networking Technology Instructor Relationship Specialty Start Date End Date Ken Greer MD [address] [place] [address] PCP - General 07/07/23 documented as of this encounter
--- OUTSIDE RECORDS SUMMARY | 2024-12-05 12:03 | XMS_ITS | Encounter Summary ---
Author Organization [facility] Address [address] [place] [address] Care Team Providers Care Rack Puncher Name Role Phone Ken Greer MD Primary Care Provider Encounter Details Date Type Department Care Team (Late st Contact Info) Description 05/16/2024 Orders Only [facility] [address] [place], [place] [id number] Yoanna Degroot, VIDYA Social History Tobacco Use Types Packs/Day Years [...] Angélica Lazo RN documented in this encounter Plan of Treatment Upcoming Encounters Date Type Department Care Team (Late st Contact Info) Description 12/06/2024 6:45 EST Treatment [facility] [place] [address] [place], [place] [id number] Carlota Jin MD 1 [facility], [facility] [address] [place] [phone] 12/08/2024 6:45 EST Treatment [facility] [place] [address] [place], [place] [id number] Carlota Jin MD 1 [facility] [address] [place] [phone] 12/11/2024 6:45 EST Treatment [facility] [place] [address] [place], [place] [id number] Carlota Jin MD 1 [facility], [facility] [address] [place] [phone] 12/13/2024 6:45 EST Treatment [facility] [address] [place], [place] [id number] Carlota Jin MD 1 [facility], [facility] [address] [place] [phone] 12/15/2024 6:45 EST Treatment [facility] [place] [address] [place], [place] [id number] Carlota Jin MD 1 [facility], [facility] [address] [place] [phone] 12/18/2024 6:45 EST Treatment [facility] [place] [address] [place], [place] [id number] Carlota Jin MD 1 [facility], [facility] [address] [place] [phone] 12/20/2024 6:45 EST Treatment [facility] [place] [address] [place], [place] [id number] Carlota Jin MD 1 [facility], [facility] [address] [place] [phone] 12/22/2024 6:45 EST Treatment [facility] [address] [place], [place] [id number] Carlota Jin MD 1 [facility], [facility] [address] [place] [phone] 12/25/2024 6:45 EST Treatment [facility] [address] [place], [place] [id number] Carlota Jin MD 1 [facility], [facility] [address] [place] [phone] 12/27/2024 6:45 EST Treatment [facility] [place] [address] [place], [place] [id number] Carlota Jin MD 1 [facility], [facility] [address] [place] [phone] 12/29/2024 6:45 EST Treatment [facility] [place] [address] [place], [place] [id number] Carlota Jin MD 1 [facility], [address] [phone] 01/01/2025 6:45 EDT Treatment [facility] [place] [address] [place], [place] [id number] Carlota Jin MD 1 [facility], [address] [phone] 01/03/2025 6:45 EDT Treatment [facility] [place] [address] [place], [place] [id number] Carlota Jin MD 1 [facility], [address] [phone] 01/05/2025 6:45 EDT Treatment [facility] [place] [address] [place], [place] [id number] Carlota Jin MD [address] [place] [address], [facility] [address] [place] [phone] 01/08/2025 6:45 EDT Treatment [facility] [place] [address] [place], [place] [id number] Carlota Jin MD 1 [facility], Level [address] [place] [phone] 01/10/2025 6:45 EDT Treatment [facility] [place] [address] [place], [place] [id number] Carlota Jin MD 1 [facility], [facility] [address] [place] [phone] 01/12/2025 6:45 EDT Treatment [facility] [place] [address] [place], [place] [id number] Carlota Jin MD 1 [facility], [facility] [address] [place] [phone] 01/15/2025 6:45 EDT Treatment [facility] [place] [address] [place], [place] [id number] Carlota Jin MD 1 [facility], [facility] [address] [place] [phone] 01/17/2025 6:45 EDT Treatment [facility] [address] [place], [place] [id number] Carlota Jin MD 1 [facility], [facility] [address] [place] [phone] 01/19/2025 6:45 EDT Treatment [facility] [address] [place], [place] [id number] Carlota Jin MD 1 [facility], [facility] [address] [place] [phone] 01/22/2025 6:45 EDT Treatment [facility] [place] [address] [place], [place] [id number] Carlota Jin MD 1 [facility], [facility] [address] [place] [phone] 01/24/2025 6:45 EDT Treatment [facility] [place] [address] [place], [place] [id number] Carlota Jin MD 1 [facility], [facility] [address] [place] [phone] 01/26/2025 6:45 EDT Treatment [facility] [place] [address] [place], [place] [id number] Carlota Jin MD 1 [facility], [facility] [address] [place] [phone] 01/29/2025 6:45 EDT Treatment [facility] [place] [address] [place], [place] [id number] Carlota Jin MD 1 [facility], [facility] [address] [place] [phone] 01/31/2025 6:45 EDT Treatment [facility] [place] [address] [place], [place] [id number] Carlota Jin MD 1 [facility], [facility] [address] [place] [phone] 02/02/2025 6:45 EDT Treatment [facility] [place] [address] [place], [place] [phone] Carlota Jin MD 1 [facility], [facility] [address] [place] [phone] 02/05/2025 6:45 EDT Treatment [facility] [place] [address] [place], [place] [id number] Carlota Jin MD 1 [facility], [facility] [address] [place] [phone] 02/07/2025 6:45 EDT Treatment [facility] [place] [address] [place] [id number] Carlota Jin MD 1 [facility], [address] [phone] 02/09/2025 6:45 EDT Treatment [facility] [place] [address] [place], [place] [id number] Carlota Jin MD 1 [facility], [address] [phone] 02/12/2025 6:45 EDT Treatment [facility] [place] [address] [place] [id number] Carlota Jin MD 1 [facility], [facility] [address] [place] [phone] 02/14/2025 6:45 EDT Treatment [facility] [place] [address] [place], [place] [id number] Carlota Jin MD 1 [facility], [facility] [address] [place] [phone] 02/16/2025 6:45 EDT Treatment [facility] [address] [place], [place] [id number] Carlota Jin MD 1 [facility], [facility] [address] [place] [phone] 02/19/2025 6:45 EDT Treatment [facility] [address] [place], [place] [id number] Carlota Jin MD [address] [place] [address], [facility] [address] [place] [phone] 02/21/2025 6:45 EDT Treatment [facility] [address] [place], [place] [id number] Carlota Jin MD [address] [place] [address], [facility] [address] [place] [phone] documented as of this encounter Visit Diagnoses Not on filedocumented in this encounter Care Teams Rack Puncher Relationship Specialty Start Date End Date [place] [id number] PCP - General 07/07/23 documented as of this encounter
--- OUTSIDE RECORDS SUMMARY | 2024-12-05 12:03 | XMS_ITS | Encounter Summary ---
Author Organization [facility] Address [address] [place] [address] Care Team Providers Care Head Orthopedic Team Physician Name Role Phone Ken Greer MD Primary Care Provider [phone] Reason for Visit * Episode Based Medications (Routine) - New Request Specialty Diagnoses / Procedures Referred By Nader pena Referred To Contact Diagnoses ESRD (end stage renal disease) ([facility]) Carlota Jin MD [address] [place] [phone] Phone: tel: fax: [facility] [place] [address] [place] [address] Phone: tel: fax: Referral ID Status Reason Start Date Expiration Date V isits Requested Visits Authorized [id number] New Request 03/17/2024 1 1 Encounter Details Date Type Department Care Team (Latest Contact Info) Description 05/22/2024 6:45 EDT Treatment [facility] [address] [place], [place] [phone] Carlota Jin MD [address] [place] [phone] ESRD (end stage renal disease) ([facility]) (Primary Dx); Anemia of chronic renal failure, unspecified CKD stage; Hypoalbuminemia; Secondary hyperparathyroidism ([facility]) Social History [...] - Temperature - - Respiratory Rate 18 05/22/2024 0623 EDT Oxygen Saturation - - Inhaled Oxygen Concentration - - Weight 83 kg (182 lb 15.7 oz) 05/22/2024 0629 ED T Height - - Body Mass Index 26.26 12/20/2023 2202 EST documented in this encounter [...] Answer Entry Date Author No 12/20/2023 14:00 EST Niekrewicz, Angélica, RN documented in this encounter Ordered Prescriptions Prescription Sig Dispense Quantity Refills Last Filled Start Date End Date sodium zirconium cyclosilicate (LOKELMA) 10 gram powder in packet Take 10 g by mouth daily. 30 Packet 11 05/22/2024 06/19/2024 documented in this encounter Progress Notes * Keila Vizcarra RN - 05/22/2024 0645 EDT % BV change: -7.8% Overall Profile: A H1: 29.6 H2: 29.5 Assessment: Based on this information and how the patients treatment went, it is clear that the patient has more fluid on and we can challenge his goals the remaining sessions this week. documented in this encounter Miscellaneous Notes * Flowsheet Note - Keila Vizcarra RN - 05/22/2024 1154 EDT 05/22/24 1044 Post-Hemodialysis Assessment Total Blood Processed (L) 87.18 Liters On Line Clearance: spKt/V 1.68 spKt/V Dialyzer Clearance Lightly streaked Treatment UFR (ml:kg:hr) 12.33 ml:kg:hr Final Critline Profile (%/hr) -2 Final Profile Profile A Critline refill Negative (H1: 29.6 H2: 29.5. Profile A. Pt has more fluid to remove and will challenge the remaining treatments this week.) Fluid Removed (L) 4.27 L Post-Dialysis Scale Weight 100.5 kg (221 lb 9 oz) Wheelchair Weight 21.4 kg (47 lb 2.9 oz) Prosthesis Weight 0 kg (0 lb) Post-Treatment Weight (kg) 79.1 Treatment Weight Change (kg) 3.9 kg Day Target Weight (kg) 79.2 Post Sitting/Lying BP 180/89 Post Sitting/Lying pulse 67 Temp 36.8 ??C (98.2 ??F) Temp src Temporal Minutes Short -240 Post access assessment Bruit present: Yes Thrill Present AVF/AFG Hemostasis achieved Yes Note Patient held for 10mins with blue clamps Orientation Alert and Oriented x3 Yes Time Yes Place Yes Person Yes Cooperative Yes Disoriented No Discharge Ambulation Methods Departs via w/c Wrap up items Patient Response to Treatment Tolerated treatment well. Removed 4300 mL UF goal without difficulty.Crit-line in place due to amount of weight gain since last treatment. Comments No issues during treatment. No concerns voiced post treatment. * Dialysis Comprehensive - Carlota Jin MD - 05/22/2024 0645 EDT Images from the original note were not included. 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 associated with type 2diabetes mellitus ([facility]) ESRD (end stage renal disease) ([facility]) Primary hypertension [I10] Hearing loss Herniation of lumbar intervertebral disc with radiculopathy Hyperlipidemia Proteinuria Right sided numbness Secondary hyperparathyroidism ([facility]) TIA (transient ischemic attack) Type II or unspecified type diabetes mellitus with neurological manifestations, uncontrolled(250.62) Encounter for immunization Hypoalbuminemia Anemia of chronic renal failure Abnormal albumin Cellulitis and abscess of foot, except toes Encounter for therapeutic drug monitoring Diabetic foot infection ([facility]) [E11.628, L08.9] COVID Type 2 diabetes mellitus with chronic kidney disease on chronic dialysis, with long-term current use of insulin ([facility]) [E11.22, N18.6, Z99.2, Z79.4] Anemia of chronic renal failure, stage 5 ([facility]) [N18.5, D63.1] ESRD on hemodialysis ([facility]) Anemia in chronic kidney disease Anxiety and depression GERD (gastroesophageal reflux disease) Nicotine dependence, cigarettes, uncomplicated Non-healing open wound of heel Olecranon bursitis, right elbow Osteoarthrosis Peripheral neuropathy Retinopathy Sciatica Smoker Type 2 diabetes mellitus with diabetic neuropathy, unspecified ([facility]) Secondary hyperparathyroidism of renal origin ([facility]) Treatment Modality: Patient received information regarding treatment [...] No Listing On-Hold? No No Transplant Center [facility] Comments Patient does not meet transplant criteria due to daily smoking cigarettes pt referred to transplant @ [facility] Current Dialysis Prescription: Hemodialysis Therapy Plan In-Center Hemodialysis 3 times a week Prescribed Weight (Kg): 77.5 Treatments Per Week: 3 Dialyzer: OPTIFLUX 250NR [...] Sign Review Prescribed Weight: Prescribed Weight (Kg): 77.5 I reviewed the patient's volume status with Nursing: Yes Average Interdialytic Fluid Gains: 05/17/2024 6:24 05/17/2024 10:40 05/19/2024 6:20 05/19/2024 6:26 05/19/2024 10:40 05/22/2024 6:23 05/22/2024 6:29 InterDialytic +/- Gain/Loss 1.8 1.6 1.6 6.6 6.6 Wt (pre) 79.7 78.9 78.9 83 83 Wt (post) 77.3 76.4 Treatment UFR (ml:kg:hr) 7.7 ml:kg:hr 8.15 ml:kg:hr BP (post) 195/92 164/86 164/86 193/92 193/92 Pulse(post) 70 66 66 74 74 Resp (/min) 16 18 Volume and blood pressure have been addressed with the following changes: None Consistently able to achieve estimated dry weight? Yes Blood pressure is in range for patient? Yes Any adverse intradialytic symptoms? No Plan: Managed per protocol Physical Exam Constitutional No distress, somnolent per usual Respiratory: unlabored Cardiac: deferred Abdomen: soft Extremities: No edema; b/l LE amputations (BKA x 2) Hospitalization Hospitalization in Previous 1 Month: No Emergency Room Visit in Previous 1 Month: No Access Management Current LDAs: Hemodialysis Arteriovenous Access 02/13/19 (Active) AV Fistula Present 05/22/24 0653 Site Assessment Clean;Dry;Intact;Bruit heard;Thrill felt 05/22/24 0653 Current State Active 05/22/24 0653 Status Accessed 05/22/24 0653 Is Maturing N 05/22/24 0653 Local Anesthetic None 05/22/24 0653 Site Prep Chlorhexidine 05/22/24 0653 Venous Needle Size 15 G 05/22/24 0653 Arterial/Generic Needle Size 15 G 05/22/24 0653 Accessed by: Sandra Rae 05/22/24 0653 Access Attempts 1 05/22/24 0653 Dressing Status/Care Clean/Dry/Intact 05/22/24 0653 Dressing Intervention Other (Comment) 12/22/23 1134 Patient has AVF/AVG as primary access: Yes [...] 4 hours. (Patient not taking: Reported on 05/01/2024), Disp: , Rfl: amLODIPine (NORVASC) 10 mg [...] with meals. (Patient not taking: Reported on 05/01/2024), Disp: , Rfl: carvediloL (COREG) 12.5 mg tablet, Take 1 Tablet by mouth 2 times daily., Disp: , Rfl: cholecalciferol, Vitamin D3, 25 mcg (1,000 unit) tablet, Take 2 Tablets by mouth. (Patient not taking: Reported on 05/01/2024), Disp: , Rfl: dilTIAZem (CARDIZEM CD) 120 mg capsule, Take 1 Capsule by mouth daily., Disp: 30 Capsule, Rfl: 0 DULoxetine (CYMBALTA) 20 mg delayed release capsule, Take 1 Capsule by mouth 2 times daily. (Patient not taking: Reported on 05/01/2024), Disp: , Rfl: famotidine (PEPCID) 40 mg tablet, Take 1 Tablet by mouth daily. (Patient not taking: Reported on 05/01/2024), Disp: , Rfl: fluticasone propionate (FLOVENT) 110 mcg/actuation inhaler, Inhale 1 Puff as directed 2 times daily. (Patient not taking: Reported on 05/01/2024), Disp: , Rfl: HYDROmorphone (DILAUDID) 2 mg tablet, Take 2 Tablets by mouth every 4 hours as needed. Daily Max: 24 mg, Disp: , Rfl: hydrOXYzine (ATARAX) 25 mg tablet, Take 1 Tablet by mouth daily as needed for Anxiety. (Patient nottaking: Reported on 05/01/2024), Disp: , Rfl: insulin aspart U-100 (NOVOLOG FLEXPEN) 100 unit/mL (3 mL) injectable pen, Inject into the skin 3 times daily with meals. Per sliding scale (Patient not taking: Reported on 05/01/2024), Disp: , Rfl: insulin glargine 100 unit/mL (3 mL) injection pen, Inject 23 Units into the skin at bedtime., Disp:, Rfl: insulin lispro (HUMALOG) 100 unit/mL vial, Inject into the skin 3 times daily before meals. 0-8 units subcutaneous q4hrs, Disp: , Rfl: insulin pen needles 32G x 5/32, Brand: [employer] Fine Anny. ISS TID and levemir once daily, Disp: 100 Each, Rfl: 11 lisinopriL (PRINIVIL) 10 mg tablet, Take 1 Tablet by mouth daily., Disp: , Rfl: multivitamin (NEPHROVITE) 0.8 mg [...] Tablet by mouth daily., Disp: , Rfl: patiromer calcium sorbitex (VELTASSA) 8.4 gram packet, Take 1 Packet by mouth daily. (Patient not taking: Reported on 05/01/2024), Disp: 30 Packet, Rfl: 11 polyethylene glycol 3350 (MIRALAX) 17 gram packet, [...] taking: Reported on 05/01/2024), Disp: , Rfl: tiZANidine (ZANAFLEX) 4 mg tablet, Take 1 Tablet by mouth every 8 hours as needed., Disp: , Rfl: Adjustment made to home medication: No Dialysis Medication Review Dialysis Plan Order Summary All Current Orders Interval Duration Due Hemodialysis Therapy Plan Dialysis Treatment In-Center Hemodialysis 3 times a week Week of 05/21/2024 Routine, ONE TIME Starting when released Prescribed Weight (Kg): 77.5 Treatments Per Week: 3 Dialyzer: OPTIFLUX 250NR Dialysate concentrate: Potassium 2 mEq/L Calcium 2.5 mEq/L Sodium NA+: Other Please specify: 136 Dialysate: Bicarb (mEq/L): 33 Dialysate Temperature (Centigrade): 36.5 BFR mL/min: 400 mL/min Dialysate Flow Rate (mL/min): 800 mL/min Duration of Treatment (hrs): 4 Hours Primary Access Site: AV Fistula Needle gauge: 15g 1 Dialysis - UF Profile: None Dialysis Last released: Wed05/22/2024 Oxygen Therapy (Age 2 yrs. to Adult) [...] released Until Discontinued, Pain, Dialysis Last released: Wed04/05/2024 diphenhydrAMINE (BENADRYL) capsule 25 mg PRN PRN [...] endof treatment. To be administered per Policy [id number]. Last released: Wed05/22/2024 sodium chloride 0.9 % BOLUS 100 mL PRN PRN 100 mL, intravenous, PRN Starting when released Until Discontinued, Other, hypotension or cramping,Dialysis Last released: Never Dialysis Weekly Labs Complete Blood Count Weekly: Wed05/24/2024 Routine, ONE TIME Starting when released, Blood, Venous, Blood Dialysis Last released: Wed05/17/2024 Dialysis Monthly Labs Dialysis Iron (Includes Iron, IBC, and Ferritin) - Nephrology Use Only On the Wed of every 1 month Wed05/29/2024 Routine, ONE TIME Starting when released, Blood, Venous, Blood Dialysis Last released: Wed05/01/2024 Dialysis Routine- Dialysis Use Only On the Wed of every 1 month Wed05/29/2024 Routine, ONE TIME Starting when released, Blood, Blood, Venous Dialysis Last released: Wed05/01/2024 Postdialysis BUN with URR Calculation On the Wed of every 1 month Wed05/29/2024 Routine, ONE TIME Starting when released, Blood, Blood, Venous Dialysis Last released: Wed05/01/2024 Dialysis Quarterly Labs PTH Intact On the [...] Blood, Venous, Blood Dialysis Last released: Wed05/01/2024 HEMODIALYSIS ANEMIA MEDS Medications epoetin ken (EPOGEN) 20,000 unit/2 mL injection 10,000 Units 3 times a week Week of 05/21/2024 10,000 Units, intravenous, ONCE IN DIALYSIS Starting when released, Dialysis Last released: Wed05/22/2024 HEMODIALYSIS NUTRITIONAL SUPPLEMENTS Nutritional Supplements LiquaCel liquid protein liquid 30 mL Every visit Every visit 30 mL, oral, ONCE IN DIALYSIS Starting when released Patient's flavor preference: either Last released: Wed05/22/2024 HEMODIALYSIS CKD MBD MEDS Medications calcium carbonate (TUMS) tablet 500 mg (200 mg elemental calcium) 2 Tablet Every visit Every visit 2 Tablet, oral, ONCE IN DIALYSIS Starting when released, Dialysis Last released: Wed05/22/2024 Adjustment made to dialysis medication: No Laboratory Results Dialysis Adequacy: spKt/V: 1.49 (Calculated from:; BUN Pre-Dialysis: 59 mg/dL at 05/01/2024 10:30; BUN Post-Dialysis: 17mg/dL at 05/01/2024 10:30; Pre-Treatment Weight (kg): 81.9 at 05/01/2024 6:31; Post-Treatment Weight (kg): 78.6 at 05/01/2024 10:48; Duration of Treatment (minutes): 241 minutes at 05/01/2024 10:48) Plan: Continue current dialysis prescription Anemia Management: Lab Results Component Value Date WBC 10.12 05/17/2024 HGB 9.3 (L) 05/17/2024 HGB 8.4 (L) 05/10/2024 HGB 7.7 (L) 05/03/2024 PLT 339 05/17/2024 FOLATE >24.0 10/27/2023 [id number] 607 10/27/2023 FERRITIN 805 (H) 05/01/2024 Current GEORGE/Dose: HEMODIALYSIS ANEMIA MEDS epoetin ken (EPOGEN) 20,000 unit/2 mL injection 10,000 Units 10,000 Units, intravenous, 3 times a week, ONCE [...] Management: Lab Results Component Value Date LABALBU 3.0 (L) 05/01/2024 ALKPHOS 134 (H) 05/01/2024 PHOS 8.3 (H) 05/01/2024 CALCIUM 9.1 05/01/2024 CALCCA 9.9 05/01/2024 PTH 250 (H) 05/01/2024 Vitamin D: cholecalciferol (Vitamin D3) - 25 mcg (1,000 unit) sevelamer carbonate - 800 mg This patient does not have an active medication from one of the medication groupers. Plan: Managed per protocol Potassium Management: Lab Results Component Value Date K 5.6 (H) 05/05/2024 Prescribed Potassium Concentrate: HEMODIALYSIS Ordered at: 05/22/24 0623 Dialysate concentrate: Potassium 2 mEq/L Calcium 2.5 mEq/L 05/22/2024 6:23 Last Dialysis Prescription released on: Selected bath: Potassium 2 mEq/L Calcium 2.5 mEq/L patiromer calcium sorbitex - 8.4 gram sevelamer carbonate - 800 mg Plan: Managed per protocol Nutrition: Lab Results Component Value Date LABALBU 3.0 (L) 05/01/2024 TP 6.4 12/19/2023 NA 137 05/01/2024 SERGLU 389 (H) 12/20/2023 HGBA1C 11.6 (H) 11/07/2023 Protein Supplements: This patient does not have an active medication from one of the medication groupers. Plan: Managed per protocol Comments: Ongoing hyperkalemia; unable to afford Lokelma. We discussed the importance of limiting the K in his diet. His engagement in this topic is limited. He was recently approved for a new insurance coverage. I will try to reorder. I did discuss with his . Carlota Jin MD documented in this encounter Plan of Treatment Upcoming Encounters Date Type Department Care Team (Late st Contact Info) Description 12/06/2024 6:45 EST Treatment [facility] [address] [place], [place] [id number] Carlota Jin MD [address] [place] [phone] 12/08/2024 6:45 EST Treatment [facility] [address] [place] [id number] Carlota Jin MD [address] [place] [phone] 12/11/2024 6:45 EST Treatment [facility] [address] [place] [id number] Carlota Jin MD 1 [facility] [address] [place] [phone] 12/13/2024 6:45 EST Treatment [facility] [place] [address] [place], [place] [id number] Carlota Jin MD [address] [facility] [place], [facility] [address] [place] [phone] 12/15/2024 6:45 EST Treatment [facility] [address] [place], [place] [id number] Carlota Jin MD [address] [facility] [place], [facility] [address] [place] [phone] 12/18/2024 6:45 EST Treatment [facility] [address] [place], [place] [id number] Carlota Jin MD 1 [facility], [facility] [address] [place] [phone] 12/20/2024 6:45 EST Treatment [facility] [address] [place] [id number] Carlota Jin MD [address] [facility] [place], [facility] [address] [place] [phone] 12/22/2024 6:45 EST Treatment [facility] [address] [place], [place] [id number] Carlota Jin MD [address] [facility] [place], [facility] [address] [place] [phone] 12/25/2024 6:45 EST Treatment [facility] [place] [address] [place], [place] [id number] Carlota Jin MD 1 [facility], [facility] [address] [place] [phone] 12/27/2024 6:45 EST Treatment [facility] [place] [address] [place], [place] [id number] Carlota Jin MD 1 [facility], [facility] [address] [place] [phone] 12/29/2024 6:45 EST Treatment [facility] [place] [address] [place], [place] [id number] Carlota Jin MD 1 [facility], [facility] [address] [place] [phone] 01/01/2025 6:45 EDT Treatment [facility] [place] [address] [place], [place] [id number] Carlota Jin MD 1 [facility], [facility] [address] [place] [phone] 01/03/2025 6:45 EDT Treatment [facility] [place] [address] [place], [place] [id number] Carlota Jin MD 1 [facility], [facility] [address] [place] [phone] 01/05/2025 6:45 EDT Treatment [facility] [place] [address] [place], [place] [id number] Calrota Jin MD [address] [facility] [place], [facility] [address] [place] [phone] 01/08/2025 6:45 EDT Treatment [facility] [place] [address] [place], [place] [id number] Carlota Jin MD [address] [facility] [place], [facility] [address] [place] [phone] 01/10/2025 6:45 EDT Treatment [facility] [place] [address] [place], [place] [id number] Carlota Jin MD 1 [facility], [facility] [address] [place] [phone] 01/12/2025 6:45 EDT Treatment [facility] [place] [address] [place], [place] [id number] Carlota Jin MD [address] [facility] [place], [facility] [address] [place] [phone] 01/15/2025 6:45 EDT Treatment [facility] [place] [address] [place] [id number] Carlota Jin MD [address] [facility] [place], [facility] [address] [place] [phone] 01/17/2025 6:45 EDT Treatment [facility] [place] [address] [place], [place] [id number] Carlota Jin MD [address] [facility] [place], [facility] [address] [place] [phone] 01/19/2025 6:45 EDT Treatment [facility] [place] [address] [place], [place] [id number] Carlota Jin MD 1 [facility], [facility] [address] [place] [phone] 01/22/2025 6:45 EDT Treatment [facility] [place] [address] [place], [place] [id number] Carlota Jin MD 1 [facility], [address] [phone] 01/24/2025 6:45 EDT Treatment [facility] [place] [address] [place], [place] [id number] Carlota Jin MD 1 [facility], [address] [phone] 01/26/2025 6:45 EDT Treatment [facility] [place] [address] [place], [place] [id number] Carlota Jin MD [address] [place] [address], [facility] [address] [place] [phone] 01/29/2025 6:45 EDT Treatment [facility] [place] [address] [place], [place] [id number] Carlota Jin MD 1 [facility], [facility] [address] [place] [phone] 01/31/2025 6:45 EDT Treatment [facility] [place] [address] [place], [place] [id number] Carlota Jin MD [address] [facility] [place], [facility] [address] [place] [phone] 02/02/2025 6:45 EDT Treatment [facility] [place] [address] [place], [place] [id number] Carlota Jin MD [address] [facility] [place], [facility] [address] [place] [phone] 02/05/2025 6:45 EDT Treatment [facility] [place] [address] [place], [place] [id number] Carlota Jin MD 1 [facility], [facility] [address] [place] [phone] 02/07/2025 6:45 EDT Treatment [facility] [place] [address] [place], [place] [id number] Carlota Jin MD 1 [facility], [facility] [address] [place] [phone] 02/09/2025 6:45 EDT Treatment [facility] [address] [place], [place] [id number] Carlota Jin MD 1 [facility], [facility] [address] [place] [phone] 02/12/2025 6:45 EDT Treatment [facility] [place] [address] [place], [place] [id number] Carlota Jin MD [address] [facility] [place], [facility] [address] [place] [phone] 02/14/2025 6:45 EDT Treatment [facility] [address] [place], [place] [id number] Carlota Jin MD 1 [facility], [address] [phone] 02/16/2025 6:45 EDT [facility] [address] [place] [id number] Carlota Jin MD [address] [phone] 02/19/2025 6:45 EDT Treatment [facility] [address] [place], [place] [id number] Carlota Jin MD [address] [phone] 02/21/2025 6:45 EDT Treatment [facility] [address] [place], [place] [id number] Carlota Jin MD [address] [phone] documented as of this encounter Procedures Procedure Name Priority Date/Time Associated Diagnosis Comments HEMODIALYSIS Routine 05/22/2024 6:23 EDT ESRD (end stage renal disease) ([facility]) documented in this encounter Visit Diagnoses Diagnosis ESRD (end stage renal disease) ([facility])- Primary End stage renal disease Anemia of chronic renal failure, unspecified CKD stage Hypoalbuminemia Other disorders of plasma protein metabolism Secondary hyperparathyroidism ([facility]) Secondary hyperparathyroidism (of renal origin) documented in this encounter Administered Medications Inactive Administered Medications - up to 3 most recent administrations Medication Order MAR Action Action Date Dose Rate Site calcium carbonate (TUMS) tablet 500 mg (200 mg elemental calcium) 2 Tablet 2 Tablet, oral, ONCE IN DIALYSIS, 1 dose, On Wed05/22/24 at 0645, Routine, DialysisIndications:ESRD (end stage renal disease) ([facility]),Secondary hyperparathyroidism ([facility]) Given 05/22/2024 6:50 EDT 2 Tablets epoetin ken (EPOGEN) 20,000 unit/2 mL injection 10,000 Units 10,000 Units, intravenous, ONCE IN DIALYSIS, 1 dose, On Wed05/22/24 at 0645, Routine, DialysisIndications:ESRD (end stage renal disease) ([facility]),Anemia of chronic renal failure, unspecified CKD stage Given 05/22/2024 6:50 EDT 10,000 Units heparin injection 7,000 Units 7,000 Units, intravenous, ONCE IN DIALYSIS, 1 dose, On Wed05/22/24 at 0645, Routine, Dialysis, Now x1 bolus 3400 units to be given at the beginning of dialysis 900 units/hour to be given over the course of dialysis (7000 units total). Stop 1 hour prior to end of treatment. To be administered per Policy [id number].Indications:ESRD (end stage renal disease) ([facility]) Given 05/22/2024 6:50 EDT 7,000 Units LiquaCel liquid protein liquid 30 mL 30 mL, oral, ONCE IN DIALYSIS, 1 dose, On Wed05/22/24 at 0645, Patient's flavor preference: either, RoutineIndications:ESRD (end stage renal disease) ([facility]),Hypoalbuminemia Given 05/22/2024 6:50 EDT 30 mL documented in this encounter Discontinued Medications Medication Sig Discontinue Reason Start Date End Da te patiromer calcium sorbitex (VELTASSA) 8.4 gram packet Take 1 Packet by mouth daily. Alternate therapy 04/07/2024 05/22/2024 documented as of this encounter Orders Dialysis Count Last Ordered Date First Orde red Date HEMODIALYSIS 1 05/22/2024 documented in this encounter Care Teams Head Orthopedic Team Physician Relationship Specialty Start Date End Date Ken Greer MD [facility] [place] [address] PCP - General 07/07/23 documented as of this encounter
--- OUTSIDE RECORDS SUMMARY | 2024-12-05 12:03 | XMS_ITS | Encounter Summary ---
Author Organization [facility] Address [address] [place] [address] Care Team Providers Care Electrician Shop Name Role Phone Ken Greer MD Primary Care Provider [phone] Encounter Details Date Type Department Care Team (Late st Contact Info) Description 05/16/2024 Orders Only [facility] [address] [place], [place] [address] Yoanna Degroot, VIDYA Social History Tobacco Use [...] Treatment [facility] D[facility]ys[facility] - [place] [address] [place], [place] [phone] Carlota Jin MD 1 [facility], [facility] [address] [place] [phone] 12/08/2024 6:45 EST Treatment [facility] D[facility]ysi - [place] [address] [place], [place] [id number] Carlota Jin MD 1 [facility] [address] [place] [phone] 12/11/2024 6:45 EST Treatment [facility] D[facility]ys[facility] - [place] [address] [place], [place] [id number] Carlota Jin MD 1 [facility], [facility] [address] [place] [phone] 12/13/2024 6:45 EST Treatment [facility] Dialysi [facility] [address] [place], [place] [id number] Carlota Jin MD 1 [facility], [facility] [address] [place] [phone] 12/15/2024 6:45 EST Treatment [facility] D[facility]ysi - [place] [address] [place], [place] [id number] Carlota Jin MD 1 [facility], [facility] [address] [place] [phone] 12/18/2024 6:45 EST Treatment [facility] D[facility]ysi - [place] [address] [place], [place] [id number] Carlota Jin MD 1 [facility], [facility] [address] [place] [phone] 12/20/2024 6:45 EST Treatment [facility]ys[facility] - [place] [address] [place], [place] [id number] Carlota Jin MD 1 [facility], [facility] [address] [place] [phone] 12/22/2024 6:45 EST Treatment [facility] D[facility] [address] [place], [place] [id number] Carlota Jin MD 1 [facility], [facility] [address] [place] [phone] 12/25/2024 6:45 EST Treatment [facility] Dialysi [facility] [address] [place], [place] [id number] Carlota Jin MD 1 [facility], [facility] [address] [place] [phone] 12/27/2024 6:45 EST Treatment [facility] Dialysi - [place] [address] [place], [place] [id number] Carlota Jin MD 1 [facility], [facility] [address] [place] [phone] 12/29/2024 6:45 EST Treatment [facility] Dialysi - [place] [address] [place], [place] [id number] Carlota Jin MD 1 [facility], [address] [phone] 01/01/2025 6:45 EDT Treatment [facility] D[facility]ys[facility] - [place] [address] [place], [place] [id number] Carlota Jin MD 1 [facility], [address] [phone] 01/03/2025 6:45 EDT Treatment [facility] Dialysi - [place] [address] [place], [place] [id number] Carlota Jin MD 1 [facility], [address] [phone] 01/05/2025 6:45 EDT Treatment [facility] Dialysi - [place] [address] [place], [place] [id number] Carlota Jin MD [address] [place] [address], [facility] 2 [place] [phone] 01/08/2025 6:45 EDT Treatment [facility] Dialysi - [place] [address] [place], [place] [id number] Carlota Jin MD 1 [facility], Level [address] [place] [phone] 01/10/2025 6:45 EDT Treatment [facility] Dialysi - [place] [address] [place], [place] [address] Carlota Jin MD 1 [facility], [facility] [address] [place] [phone] 01/12/2025 6:45 EDT Treatment [facility] Dialysi - [place] [address] [place], [place] [id number] Carlota Jin MD 1 [facility], [facility] [address] [place] [phone] 01/15/2025 6:45 EDT Treatment [facility] Dialysi - [place] [address] [place], [place] [id number] Carlota Jin MD 1 [facility], [facility] 2 [place] [phone] 01/17/2025 6:45 EDT Treatment [facility] [address] [place], [place] [id number] Carlota Jin MD 1 [facility], [facility] [address] [place] [phone] 01/19/2025 6:45 EDT Treatment [facility]i [facility] [address] [place], [place] [id number] Carlota Jin MD 1 [facility], [facility] [address] [place] [phone] 01/22/2025 6:45 EDT Treatment [facility] D[facility]ysi - [place] [address] [place], [place] [id number] Carlota Jin MD 1 [facility], [facility] [address] [place] [phone] 01/24/2025 6:45 EDT Treatment [facility] D[facility]ys[facility] - [place] [address] [place], [place] [id number] Carlota Jin MD 1 [facility], [facility] [address] [place] [phone] 01/26/2025 6:45 EDT Treatment [facility] D[facility]ysi - [place] [address] [place], [place] [id number] Carlota Jin MD 1 [facility], [facility] [address] [place] [phone] 01/29/2025 6:45 EDT Treatment [facility] Dialysi - [place] [address] [place], [place] [id number] Carlota Jin MD 1 [facility], [facility] [address] [place] [phone] 01/31/2025 6:45 EDT Treatment [facility] Dialysi - [place] [address] [place], [place] [id number] Carlota Jin MD 1 [facility], [facility] [address] [place] [phone] 02/02/2025 6:45 EDT Treatment [facility] Dialysi - [place] [address] [place], [place] [id number] Carlota Jin MD 1 [facility], [facility] [address] [place] [phone] 02/05/2025 6:45 EDT Treatment [facility] Dialysi - [place] [address] [place], [place] [id number] Carlota Jin MD 1 [facility], [facility] [address] [place] [phone] 02/07/2025 6:45 EDT Treatment [facility] Dialysi - [place] [address] [place] [address] Carlota Jin MD 1 [facility], [address] [phone] 02/09/2025 6:45 EDT Treatment [facility] Dialysi - [place] [address] [place], [place] [id number] Carlota Jin MD 1 [facility], [address] [phone] 02/12/2025 6:45 EDT Treatment [facility] Dialysi - [place] [address] [place] [address] aCrlota Jin MD 1 [facility], [facility] [address] [place] [phone] 02/14/2025 6:45 EDT Treatment [facility] Dialysi - [place] [address] [place], [place] [id number] Carlota Jin MD 1 [facility], [facility] [address] [place] [phone] 02/16/2025 6:45 EDT Treatment [facility] D[facility]i [facility] [address] [place], [place] [id number] Carlota Jin MD 1 [facility], [facility] [address] [place] [phone] 02/19/2025 6:45 EDT Treatment [facility] [address] [place], [place] [id number] Carlota Jin MD [address] [place] [address], [facility] [address] [place] [phone] 02/21/2025 6:45 EDT Treatment [facility] [address] [place], [place] [id number] Carlota Jin MD [address] [place] [address], [facility] [address] [place] [phone] documented as of this encounter Visit Diagnoses Not on filedocumented in this encounter Care Teams Electrician Shop Relationship Specialty Start Date End Date [place] [address] PCP - General 07/07/23 documented as of this encounter
--- OUTSIDE RECORDS SUMMARY | 2024-12-05 12:03 | XMS_ITS | Encounter Summary ---
Author Organization [facility] Address [address] [place] [address] Care Team Providers Care Clean Room Assembler Name Role Phone Ken Greer MD Primary Care Provider [phone] Encounter Details Date Type Department Care Team (Late st Contact Info) Description 05/16/2024 Documentation Visit [address] [place], [place] [address] Yoanna Degroot, VIDYA Social History Tobacco Use [...] Contact Info) Description 12/06/2024 6:45 EST Treatment [facility] Dialysi - [place] [address] [place], [place] [id number] Carlota Jin MD 1 [facility], [facility] [address] [place] [phone] 12/08/2024 6:45 EST Treatment [facility] Dialysi - [place] [address] [place], [place] [id number] Carlota Jin MD 1 [facility] [address] [place] [phone] 12/11/2024 6:45 EST Treatment [facility]ys[facility] - [place] [address] [place], [place] [id number] Carlota Jin MD 1 [facility], [facility] [address] [place] [phone] 12/13/2024 6:45 EST Treatment [facility] D[facility] [address] [place], [place] [id number] Carlota Jin MD 1 [facility], [facility] [address] [place] [phone] 12/15/2024 6:45 EST Treatment [facility] Dialysi - [place] [address] [place], [place] [id number] Carlota Jin MD 1 [facility], [facility] [address] [place] [phone] 12/18/2024 6:45 EST Treatment [facility] Dialysi - [place] [address] [place], [place] [address] Carlota Jin MD 1 [facility], [facility] [address] [place] [phone] 12/20/2024 6:45 EST Treatment [facility] D[facility]ysi - [place] [address] [place], [place] [id number] Carlota Jin MD 1 [facility], [facility] [address] [place] [phone] 12/22/2024 6:45 EST Treatment [facility] D[facility] [address] [place], [place] [id number] Carlota Jin MD 1 [facility], [facility] [address] [place] [phone] 12/25/2024 6:45 EST Treatment [facility] Dial[facility] [address] [place], [place] [id number] Carlota Jin MD 1 [facility], [facility] [address] [place] [phone] 12/27/2024 6:45 EST Treatment [facility] - [place] [address] [place], [place] [id number] Carlota Jin MD 1 [facility], [facility] [address] [place] [phone] 12/29/2024 6:45 EST Treatment [facility] Dialysi - [place] [address] [place], [place] [id number] Carlota Jin MD 1 [facility], [address] [phone] 01/01/2025 6:45 EDT Treatment [facility] Dialysi - [place] [address] [place], [place] [id number] Carlota Jin MD 1 [facility], [address] [phone] 01/03/2025 6:45 EDT Treatment [facility] D[facility]ys[facility] - [place] [address] [place], [place] [id number] Carlota Jin MD 1 [facility], [address] [phone] 01/05/2025 6:45 EDT Treatment [facility]ys[facility] - [place] [address] [place], [place] [id number] Carlota Jin MD [address] [place] [address], [facility] [address] [place] [phone] 01/08/2025 6:45 EDT Treatment [facility] Dialysi - [place] [address] [place], [place] [id number] Carlota Jin MD 1 [facility] Level [address] [place] [phone] 01/10/2025 6:45 EDT Treatment [facility] D[facility]ys[facility] - [place] [address] [place], [place] [address] Carlota Jin MD 1 [facility], [facility] [address] [place] [phone] 01/12/2025 6:45 EDT Treatment [facility] D[facility]ys[facility] - [place] [address] [place], [place] [id number] Carlota Jin MD 1 [facility], [facility] [address] [place] [phone] 01/15/2025 6:45 EDT Treatment [facility]ys[facility] - [place] [address] [place], [place] [id number] Carlota Jin MD 1 [facility], [facility] 2 [place] [phone] 01/17/2025 6:45 EDT Treatment [facility] [address] [place], [place] [id number] Carlota Jin MD 1 [facility], [facility] 2 [place] [phone] 01/19/2025 6:45 EDT Treatment [facility] D[facility] [address] [place], [place] [id number] Carlota Jin MD 1 [facility], [facility] 2 [place] [phone] 01/22/2025 6:45 EDT Treatment [facility] D[facility]ysi - [place] [address] [place], [place] [id number] Carlota Jin MD 1 [facility], [facility] [address] [place] [phone] 01/24/2025 6:45 EDT Treatment [facility] D[facility]ysi - [place] [address] [place], [place] [id number] Carlota Jin MD 1 [facility], [facility] [address] [place] [phone] 01/26/2025 6:45 EDT Treatment [facility] - [place] [address] [place], [place] [id number] Carlota Jin MD 1 [facility], [facility] [address] [place] [phone] 01/29/2025 6:45 EDT Treatment [facility] - [place] [address] [place], [place] [id number] Carlota Jin MD 1 [facility], [facility] [address] [place] [phone] 01/31/2025 6:45 EDT Treatment [facility] - [place] [address] [place], [place] [id number] Carlota Jin MD 1 [facility], [facility] [address] [place] [phone] 02/02/2025 6:45 EDT Treatment [facility] Dialysi - [place] [address] [place], [place] [id number] Carlota Jin MD 1 [facility], [facility] 2 [place] [phone] 02/05/2025 6:45 EDT Treatment [facility] D[facility]ys[facility] - [place] [address] [place], [place] [id number] Carlota Jin MD 1 [facility], [facility] [address] [place] [phone] 02/07/2025 6:45 EDT Treatment [facility] Dialysi - [place] [address] [place] [address] Carlota Jin MD 1 [facility], [address] [phone] 02/09/2025 6:45 EDT Treatment [facility] D[facility]ys[facility] - [place] [address] [place], [place] [id number] Carlota Jin MD 1 [facility], [address] [phone] 02/12/2025 6:45 EDT Treatment [facility] - [place] [address] [place] [address] Carlota Jin MD 1 [facility], [facility] 2 [place] [phone] 02/14/2025 6:45 EDT Treatment [facility] Dialysi - [place] [address] [place], [place] [id number] Carlota Jin MD 1 [facility], [facility] 2 [place] [phone] 02/16/2025 6:45 EDT Treatment [facility] D[facility] [address] [place], [place] [id number] Carlota Jin MD 1 [facility], [facility] 2 [place] [phone] 02/19/2025 6:45 EDT [facility] [address] [place], [place] [id number] Carlota Jin MD [address] [place] [address], [facility] [address] [place] [phone] 02/21/2025 6:45 EDT Treatment [facility] [address] [place], [place] [id number] Carlota Jin MD [address] [place] [address], [facility] [address] [place] [phone] documented as of this encounter Visit Diagnoses Not on filedocumented in this encounter Care Teams Clean Room Assembler Relationship Specialty Start Date End Date [place] [address] PCP - General 07/07/23 documented as of this encounter
--- OUTSIDE RECORDS SUMMARY | 2024-12-05 12:03 | XMS_ITS | Encounter Summary ---
Author Organization [facility] Address [address] [place] [address] Care Team Providers Care Kiln Worker Name Role Phone Ken Greer MD Primary Care Provider [phone] Reason for Visit * Episode Based Medications (Routine) - New Request Specialty Diagnoses / Procedures Referred By Nader pena Referred To Contact Diagnoses ESRD (end stage renal disease) ([facility]) Carlota Jin MD [address] [place] [phone] Phone: tel: fax: [facility] - [facility] [address] [place] [address] Phone: tel: fax: Referral ID Status Reason Start Date Expiration Date V isits Requested Visits Authorized [id number] New Request 03/17/2024 1 1 Encounter Details Date Type Department Care Team (Latest Contact Info) Description 05/29/2024 6:45 EDT Treatment [facility] [address] [place], [place] [id number] Carlota Jin MD [address] [place] [phone] ESRD (end stage renal disease) ([facility]) (Primary Dx); Anemia of chronic renal failure, unspecified CKD stage; Hypoalbuminemia; Secondary hyperparathyroidism ([facility]) Social History Tobacco Use [...] the past [address] [facility], were you homeless or living in a fpc (including now)? No 05/30/2024 Interpersonal Safety Answer Date Record ed How often does anyone, christinehu eloy family, hit, punch or physically hurt you? [...] the past 12 months has th e [employer], gas, oil, or water [employer] threatened to shut off services in your [...] - Temperature - - Respiratory Rate 16 05/29/2024 0623 EDT Oxygen Saturation - - Inhaled Oxygen Concentration - - Weight 82 kg (180 lb 12.4 oz) 05/29/2024 0629 ED T Height - - Body Mass Index 25.94 12/20/2023 2202 EST documented in this encounter [...] Progress Notes * Marcela Cox RN - 05/29/20[address] Jin to discuss high HR's pretx and during dialysis, per Dr. Jin pt needsto be evaluated in ER post tx unless HR's come down into normal range. documented in this encounter Miscellaneous Notes * Flowsheet Note - Marcela Cox RN - 05/29/2024 1108 EDT 05/29/24 1043 Post-Hemodialysis Assessment Total Blood Processed (L) 90.67 Liters On Line Clearance: spKt/V 1.61 spKt/V Dialyzer Clearance Lightly streaked Treatment UFR (ml:kg:hr) 13.05 ml:kg:hr Final Critline Profile (%/hr) -1.54 Final Profile Profile A Critline refill Negative Fluid Removed (L) 4.3 L Post-Dialysis Scale Weight 97 kg (213 lb 13.5 oz) Wheelchair Weight 19.1 kg (42 lb 1.7 oz) Prosthesis Weight 0 kg (0 lb) Post-Treatment Weight (kg) 77.9 Treatment Weight Change (kg) 4.1 kg Day Target Weight (kg) 78.2 Post Sitting/Lying BP (!) 170/107 Post Sitting/Lying pulse 147 (sending pt to ER post tx for eval of high HR per Dr. Jin) Temp 35.9 ??C (96.6 ??F) Minutes Short -242 Post access assessment AVF/AFG Hemostasis achieved Yes Note 10 min hold Orientation Alert and Oriented x3 Yes Time Yes Place Yes Person Yes Cooperative Yes Disoriented No Discharge Ambulation Methods Departs via w/c Wrap up items Patient Response to Treatment Removed 4.3L without issue today. Comments Pt with high HR pre and during tx today, (120-140s). Per Dr. Jin pt will d/c to [facility] post dialysis tx for eval of high HR. documented in this encounter Plan of Treatment Upcoming Encounters Date Type Department Care Team (Late st Contact Info) Description 12/06/2024 6:45 EST Treatment [facility] [address] [place], [place] [id number] Carlota Jin MD [address] [place] [phone] 12/08/2024 6:45 EST Treatment [facility] [address] [place], [place] [id number] Carlota Jin MD [address] [place] [phone] 12/11/2024 6:45 EST Treatment [facility] [address] [place], [place] [id number] Carlota Jin MD [address] [place] [phone] 12/13/2024 6:45 EST Treatment [facility] [address] [place] [id number] Carlota Jin MD [facility] [address] [place] [phone] 12/15/2024 6:45 EST Treatment [facility] - [place] [address] [place], [place] [id number] Carlota Jin MD 1 [facility], [facility] [address] [place] [phone] 12/18/2024 6:45 EST Treatment [facility] - [place] [address] [place], [place] [id number] Carlota Jin MD 1 [facility], [facility] [address] [place] [phone] 12/20/2024 6:45 EST Treatment [facility] - [place] [address] [place], [place] [id number] Carlota Jin MD 1 [facility], [facility] [address] [place] [phone] 12/22/2024 6:45 EST Treatment [facility] - [place] [address] [place], [place] [phone] Carlota Jin MD 1 [facility], [facility] [address] [place] [phone] 12/25/2024 6:45 EST Treatment [facility] - [place] [address] [place], [place] [id number] Carlota Jin MD 1 [facility], [facility] [address] [place] [phone] 12/27/2024 6:45 EST Treatment [facility] - [place] [address] [place], [place] [phone] Carlota Jin MD 1 [facility], [facility] [address] [place] [phone] 12/29/2024 6:45 EST Treatment [facility] - [place] [address] [place], [place] [phone] Carlota Jin MD 1 [facility], [facility] [address] [place] [phone] 01/01/2025 6:45 EDT Treatment [facility] - [place] [address] [place] [address] Carlota Jin MD 1 [facility], [address] [phone] 01/03/2025 6:45 EDT Treatment [facility] - [place] [address] [place], [place] [phone] Carlota Jin MD 1 [facility], [facility] [address] [place] [phone] 01/05/2025 6:45 EDT Treatment [facility] - [place] [address] [place], [place] [phone] Carlota Jin MD 1 [facility], [facility] [address] [place] [phone] 01/08/2025 6:45 EDT Treatment [facility] - [place] [address] [place] [address] Carlota Jin MD 1 [facility], [facility] [address] [place] [phone] 01/10/2025 6:45 EDT Treatment [facility] - [place] [address] [place] [address] Carlota Jin MD 1 [facility], [facility] [address] [place] [phone] 01/12/2025 6:45 EDT Treatment [facility] - [place] [address] [place] [address] Carlota Jin MD 1 [facility], [address] [phone] 01/15/2025 6:45 EDT Treatment [facility] - [place] [address] [place] [address] Carlota Jin MD 1 [facility], [address] [phone] 01/17/2025 6:45 EDT Treatment [facility] - [place] [address] [place] [address] Carlota Jin MD 1 [facility], [facility] [address] [place] [phone] 01/19/2025 6:45 EDT Treatment [facility] - [place] [address] [place], [place] [phone] Carlota Jin MD 1 [facility], [facility] [address] [place] [phone] 01/22/2025 6:45 EDT Treatment [facility] - [place] [address] [place], [place] [phone] Carlota Jin MD 1 [facility], [facility] [address] [place] [phone] 01/24/2025 6:45 EDT Treatment [facility] - [place] [address] [place], [place] [phone] Carlota Jin MD 1 [facility], [facility] [address] [place] [phone] 01/26/2025 6:45 EDT Treatment [facility] - [place] [address] [place], [place] [address] Carlota Jin MD 1 [facility], [facility] [address] [place] [phone] 01/29/2025 6:45 EDT Treatment [facility] - [place] [address] [place], [place] [id number] Carlota Jin MD 1 [facility], [facility] [address] [place] [phone] 01/31/2025 6:45 EDT Treatment [facility] - [place] [address] [place], [place] [phone] Carlota Jin MD 1 [facility], [facility] [address] [place] [phone] 02/02/2025 6:45 EDT Treatment [facility] - [place] [address] [place], [place] [address] Carlota Jin MD 1 [facility], [address] [phone] 02/05/2025 6:45 EDT Treatment [facility] - [place] [address] [place], [place] [phone] Carlota Jin MD 1 [facility], [address] [phone] 02/07/2025 6:45 EDT Treatment [facility] - [place] [address] [place], [place] [phone] Carlota Jin MD 1 [facility], [address] [phone] 02/09/2025 6:45 EDT Treatment [facility] - [place] [address] [place], [place] [phone] Carlota Jin MD [address] [phone] 02/12/2025 6:45 EDT Treatment [facility] - [place] [address] [place], [place] [phone] Carlota Jin MD [address] [phone] 02/14/2025 6:45 EDT Treatment [facility] - [place] [address] [place], [place] [phone] Carlota Jin MD 1 [facility], [address] [phone] 02/16/2025 6:45 EDT Treatment [facility] - [place] [address] [place], [place] [phone] Carlota Jin MD 1 [facility], [address] [phone] 02/19/2025 6:45 EDT Treatment [facility] - [place] [address] [place], [place] [phone] Carlota Jin MD 1 [facility], [address] [phone] 02/21/2025 6:45 EDT Treatment [facility] - [place] [address] [place], [place] [phone] Carlota Jin MD [address] [phone] documented as of this encounter Procedures Procedure Name Priority Date/Time Associated Diagnosis Comments POSTDIALYSIS BUN WITH URR CALCULATION Routine 05/29/2024 11:06 EDT ESRD (end stage renal disease) ([facility]) HEMODIALYSIS Routine 05/29/2024 6:23 EDT ESRD (end stage renal disease) ([facility]) documented in this encounter Results * POSTDIALYSIS BUN WITH URR CALCULATION (05/29/2024 11:06 EDT) [facility] BUN, Postdialysis 19 10 - 26 mg/dL 05/29/2024 22:01 EDT [facility] Urea Reduction Rate 05/29/2024 22:01 EDT [facility] Comment: PRE BUN got canceled. ??Reduction rate not calculated. NOTE: Reference range not established for Urea Reduction Rate. Blood VENOUS BLOOD / Unknown Venipuncture / Unknown 05/29/2024 11:06 EDT 05/29/2024 11:06 EDT Skye Gomez NP CHEMISTRY & BLOOD GAS ORDER FRANSISCO Final Result [facility] [address] [place] [address] documented in this encounter Visit Diagnoses Diagnosis ESRD (end stage renal disease) ([facility])- Primary End stage renal disease Anemia of chronic renal failure, unspecified CKD stage Hypoalbuminemia Other disorders of plasma protein metabolism Secondary hyperparathyroidism ([facility]) Secondary hyperparathyroidism (of renal origin) documented in this encounter Administered Medications Inactive Administered Medications - up to 3 most recent administrations Medication Order MAR Action Action Date Dose Rate Site acetaminophen (TYLENOL) tablet 650 mg 650 mg, oral, EVERY 4 HOURS PRN, Starting on Wed05/29/24 at 0634, Until Wed05/29/24 at 1308, Pain, Routine, DialysisIndications:ESRD (end stage renal disease) ([facility]) Given 05/29/2024 6:34 EDT 650 mg calcium carbonate (TUMS) tablet 500 mg (200 mg elemental calcium) 2 Tablet 2 Tablet, oral, ONCE IN DIALYSIS, 1 dose, On Wed05/29/24 at 0645, Routine, DialysisIndications:ESRD (end stage renal disease) ([facility]),Secondary hyperparathyroidism ([facility]) Given 05/29/2024 6:36 EDT 2 Tablets epoetin ken (EPOGEN) 20,000 unit/2 mL injection 10,000 Units 10,000 Units, intravenous, ONCE IN DIALYSIS, 1 dose, On Wed05/29/24 at 0645, Routine, DialysisIndications:ESRD (end stage renal disease) ([facility]),Anemia of chronic renal failure, unspecified CKD stage Given 05/29/2024 6:47 EDT 10,000 Units heparin injection 7,000 Units 7,000 Units, intravenous, ONCE IN DIALYSIS, 1 dose, On Wed05/29/24 at 0645, Routine, Dialysis, Now x1 bolus 3400 units to be given at the beginning of dialysis 900 units/hour to be given over the course of dialysis (7000 units total). Stop 1 hour prior to end of treatment. To be administered per Policy [id number].Indications:ESRD (end stage renal disease) ([facility]) Given 05/29/2024 6:47 EDT 7,000 Units LiquaCel liquid protein liquid 30 mL 30 mL, oral, ONCE IN DIALYSIS, 1 dose, On 05/29/24 at 0645, Patient's flavor preference: either, RoutineIndications:ESRD (end stage renal disease) ([facility]),Hypoalbuminemia Given 05/29/2024 6:36 EDT 30 mL documented in this encounter Orders Dialysis Count Last Ordered Date First Orde red Date HEMODIALYSIS 1 05/29/2024 documented in this encounter Care Teams Kiln Worker Relationship Specialty Start Date End Date Ken Greer MD [address] [place] [address] PCP - General 07/07/23 documented as of this encounter
--- OUTSIDE RECORDS SUMMARY | 2024-12-05 12:03 | XMS_ITS | Encounter Summary ---
Author Organization [facility] Address [address] [place] [address] Care Team Providers Care Highballer Name Role Phone Ken Greer MD Primary Care Provider [phone] Reason for Referral * (Routine/Next Available) - Receiving Office to Obtain Authorization Specialty Diagnoses / Procedures Referred By Contac t Referred To Contact Procedures XR OUTSIDE IMAGES CHEST Imaging, External Referral ID Status Reason Start Date Expiration Date Visits Requested Visits Authorized [id number] Receiving Office to Obtain Authorization 05/30/2024 1 1 Reason for Visit * (Routine/Next Available) - Receiving Office to Obtain Authorization Specialty Diagnoses / Procedures Referred By Nader gardiner Referred To Contact Procedures XR OUTSIDE IMAGES CHEST Imaging, External Referral ID Status Reason Start Date Expiration Date Visits Requested Visits Authorized [id number] Receiving Office to Obtain Authorization 05/30/2024 1 1 Encounter Details Date Type Department Care Team (Latest Contact Info) Description 05/29/2024 - 05/29/2024 23:[address] [facility] Secondary Reads [place] Discharge Disposition: Home or Self Care Social History Tobacco Use Types Packs/Day Years Used Date Smoking Tobacco: Every Day Cigarettes Smokeless Tobacco: Never Alcohol Use Standard Drinks/Week Comments Yes 0 (1 standard drink = 0.6 oz pur e alcohol) Socially C Utilities Answer Date Recorded In the past 12 months has [employer] electric, gas, oil, or water company threatened [...] living situation today? I have a [facility] place to live 05/30/2024 Think [...] the past 12 months has th e [employer], [employer], oil, or water [employer] threatened to shut off services in your [...] Angélica Lazo RN documented in this encounter Medications at [...] 10 pm insulin pen needles 32G x 532 Brand: Mimiboard Ultra Fine Anny. ISS TID and levemir [...] mouth daily. 30 Packet 11 05/22/2024 06/19/20 documented as of this encounter Discharge Disposition Disposition Code Departure Means Destination Home or Self Care documented in this encounter Plan of Treatment Upcoming Encounters Date Type Department Care Team (Late st Contact Info) Description 12/06/2024 6:45 EST Treatment [facility] [address] [place] [id number] Carlota Jin MD 1 [facility], Level [address] [place] [phone] 12/08/2024 6:45 EST Treatment [facility] [address] [address] Carlota Jin MD 1 [facility], [facility] 2 [place] [phone] 12/11/2024 6:[address] [facility] [place] [address] [place], [place] [id number] Carlota Jin MD 1 [facility], [facility] 2 [place] [phone] 12/13/2024 6:[address] [facility] [place] [address] [place], [place] [id number] Carlota Jin MD 1 [facility], [facility] 2 [place] [phone] 12/15/2024 6:[address] [facility] [place] [address] [place], [place] [phone] Carlota Jin MD 1 [facility], [facility] 2 [place] [phone] 12/18/2024 6:[address] [facility] [place] [address] [place], [place] [phone] Carlota Jin MD 1 [facility], [facility] 2 [place] [phone] 12/20/2024 6:[address] [facility] [place] [address] [place], [place] [phone] Carlota Jin MD 1 [facility], [facility] 2 [place] [phone] 12/22/2024 6:[address] [facility] [place] [address] [place], [place] [phone] Carlota Jin MD 1 [facility], [facility] 2 [place] [phone] 12/25/2024 6:[address] [facility] [place] [address] [place], [place] [phone] Carlota Jin MD 1 [facility], [facility] 2 [place] [phone] 12/27/2024 6:[address] [facility] [place] [address] [place], [place] [phone] Carlota Jin MD [address] [place] [address], [facility] [address] [place] [phone] 12/29/2024 6:[address] [facility] [place] [address] [place], [place] [phone] Carlota Jin MD 1 [facility], [facility] 2 [place] [phone] 01/01/2025 6:[address] [facility] [place] [address] [place], [place] [phone] Carlota Jin MD 1 [facility], [facility] 2 [place] [phone] 01/03/2025 6:[address] [facility] [place] [address] [place], [place] [phone] Carlota Jin MD 1 [facility], [facility] 2 [place] [phone] 01/05/2025 6:[address] [facility] [place] [address] [place], [place] [phone] Carlota Jin MD 1 [facility], [facility] 2 [place] [phone] 01/08/2025 6:[address] [facility] [place] [address] [place] [address] Carlota Jin MD 1 [facility], [address] [phone] 01/10/2025 6:[address] [facility] [place] [address] [place], [place] [phone] Carlota Jin MD 1 [facility], [address] [phone] 01/12/2025 6:[address] [facility] [place] [address] [place] [address] Carlota Jin MD 1 [facility], [facility] 2 [place] [phone] 01/15/2025 6:[address] [facility] [place] [address] [place], [place] [phone] Carlota Jin MD 1 [facility], [facility] 2 [place] [phone] 01/17/2025 6:[address] [facility] [place] [address] [place], [place] [phone] Carlota Jin MD 1 [facility], [facility] 2 [place] [phone] 01/19/2025 6:[address] [facility] [place] [address] [place], [place] [phone] Carlota Jin MD 1 [facility], [facility] 2 [place] [phone] 01/22/2025 6:[address] [facility] [place] [address] [place], [place] [phone] Carlota Jin MD 1 [facility], [address] [phone] 01/24/2025 6:[address] [facility] [place] [address] [place], [place] [address] Carlota Jin MD 1 [facility], [facility] 2 [place] [phone] 01/26/2025 6:[address] [facility] [place] [address] [place], [place] [phone] Carlota Jin MD 1 [facility], [facility] 2 [place] [phone] 01/29/2025 6:[address] [facility] [place] [address] [place], [place] [address] Carlota Jin MD 1 [facility], [address] [phone] 01/31/2025 6:[address] [facility] [place] [address] [place] [address] Carlota Jin MD 1 [facility], [address] [phone] 02/02/2025 6:[address] [facility] [place] [address] [place], [place] [phone] Carlota Jin MD 1 [facility], [address] [phone] 02/05/2025 6:[address] [facility] [address] [place], [place] [phone] Carlota Jin MD 1 [facility], [address] [phone] 02/07/2025 6:[address] [facility] [place] [address] [place], [place] [phone] Carlota Jin MD 1 [facility], [address] [phone] 02/09/2025 6:[address] [facility] [place] [address] [place], [place] [address] Carlota Jin MD 1 [facility], [facility] 2 [place] [phone] 02/12/2025 6:[address] [facility] [place] [address] [place], [place] [phone] Carlota Jin MD 1 [facility], [address] [phone] 02/14/2025 6:[address] [facility] [place] [address] [place], [place] [phone] Carlota Jin MD 1 [facility], [address] [phone] 02/16/2025 6:[address] [facility] [place] [address] [place], [place] [phone] Carlota Jin MD [address] [phone] 02/19/2025 6:[address] [facility] [place] [address] [place], [place] [phone] Carlota Jin MD 1 [facility], [address] [phone] 02/21/2025 6:[address] [facility] [place] [address] [place], [place] [phone] Carlota Jin MD [address] [phone] documented as of this encounter Procedures Procedure Name Priority Date/Time Associated Diagnosis Comments XR OUTSIDE IMAGES CHEST Routine 05/29/2024 12:24 EDT documented in this encounter Results * XR OUTSIDE IMAGES CHEST (05/29/2024 12:24 EDT) Narrative 05/30/2024 12:24 EDT This is a non-reportable exam. us External Imaging IMG OTHER IMAGING ORDERABLES Fi nal Result documented in this encounter Visit Diagnoses Not on filedocumented in this encounter Care Teams Highballer Relationship Specialty Start Date End Date Ken Greer MD [address] [place] [address] PCP - General 07/07/23 documented as of this encounter
--- OUTSIDE RECORDS SUMMARY | 2024-12-05 12:03 | XMS_ITS | Encounter Summary ---
Author Organization [facility] Address [address] [place] [address] Care Team Providers Care Replanting Machine Operator Name Role Phone Ken Greer MD Primary Care Provider [phone] Reason for Visit * Episode Based Medications (Routine) - New Request Specialty Diagnoses / Procedures Referred By Nader pena Referred To Contact Diagnoses ESRD (end stage renal disease) ([facility]) Carlota Jin MD [address] [place] [phone] Phone: tel: fax: [facility] [place] [address] [place] [address] Phone: tel: fax: Referral ID Status Reason Start Date Expiration Date V isits Requested Visits Authorized [id number] New Request 03/17/2024 1 1 Encounter Details Date Type Department Care Team (Latest Contact Info) Description 05/19/2024 6:45 EDT Treatment [facility] [address] [place], [place] [phone] Carlota Jin MD [address] [place] [phone] ESRD (end stage renal disease) ([facility]) (Primary Dx); Anemia of chronic renal failure, unspecified CKD stage; Hypoalbuminemia; Secondary hyperparathyroidism ([facility]) Social History Tobacco Use Types Packs/Day Years [...] - Temperature - - Respiratory Rate 16 05/19/2024 0620 EDT Oxygen Saturation - - Inhaled Oxygen Concentration - - Weight 78.9 kg (173 lb 15.1 oz) 05/19/2024 0626 EDT Height - - Body Mass [...] Flowsheet Note - Marcela Cox RN - 05/19/2024 9047 EDT 05/19/24 1040 Post-Hemodialysis Assessment Total Blood Processed (L) 91.07 Liters On Line Clearance: spKt/V 1.65 spKt/V Dialyzer Clearance Lightly streaked Treatment UFR (ml:kg:hr) 8.15 ml:kg:hr Final Critline Profile (%/hr) -1.84 Final Profile Profile A Critline refill Negative Fluid Removed (L) 2.7 L Post-Dialysis Scale Weight 94.8 kg (208 lb 15.9 oz) Wheelchair Weight 18.4 kg (40 lb 9 oz) Prosthesis Weight 0 kg (0 lb) Post-Treatment Weight (kg) 76.4 Treatment Weight Change (kg) 2.5 kg Day Target Weight (kg) 76.9 Post Sitting/Lying BP 168/85 Post Sitting/Lying pulse 65 Temp 35.5 ??C (95.9 ??F) Temp src Temporal Minutes Short -241 Post access assessment AVF/AFG Hemostasis achieved Yes Note 10 min hold w/clamps Orientation Alert and Oriented x3 Yes Time Yes Place Yes Person Yes Cooperative Yes Disoriented No Discharge Ambulation Methods Departs via w/c;With patient transport Wrap up items Patient Response to Treatment Tolerated tx well. Removed 2.7L UF goal without difficulty. UF goal adjusted per crit line, vital signs and pt tolerance. Comments No issues during tx, no concerns voiced post tx. documented in this encounter Plan of Treatment Upcoming Encounters Date Type Department Care Team (Late st Contact Info) Description 12/06/2024 6:45 EST Treatment [facility] [address] [place], [place] [phone] Carl[facility] MD 1 [facility] Level [address] [place] [phone] 12/08/2024 6:45 EST Treatment [facility] [place] [address] [place], [place] [address] Carlota Jin MD 1 [facility], [facility] 2 [place] [phone] 12/11/2024 6:45 EST Treatment [facility] [place] [address] [place] [address] Carl[address] Jin MD 1 [facility], [address] [phone] 12/13/2024 6:45 EST Treatment [facility] [place] [address] [place], [place] [phone] Carlota Jin MD 1 [facility], [address] [phone] 12/15/2024 6:45 EST Treatment [facility] [place] [address] [place] [address] Carlota Jin MD 1 [facility], [address] [phone] 12/18/2024 6:45 EST Treatment [facility] [place] [address] [place], [place] [phone] Carlota Jin MD [address] [phone] 12/20/2024 6:45 EST Treatment [facility] [place] [address] [place], [place] [phone] Carlota Jin MD 1 [facility], [facility] 2 [place] [phone] 12/22/2024 6:45 EST Treatment [facility] [place] [address] [place], [place] [phone] Carlota Jin MD 1 [facility], [facility] 2 [place] [phone] 12/25/2024 6:45 EST Treatment [facility] [place] [address] [place], [place] [phone] Carlota Jin MD 1 [facility], [facility] 2 [place] [phone] 12/27/2024 6:45 EST Treatment [facility] [place] [address] [place] [address] Carlota Jin MD 1 [facility], [facility] 2 [place] [phone] 12/29/2024 6:45 EST Treatment [facility] [place] [address] [place], [place] [phone] Carlota Jin MD 1 [facility], [facility] 2 [place] [phone] 01/01/2025 6:45 EDT Treatment [facility] [place] [address] [place], [place] [phone] Carlota Jin MD 1 [facility], [facility] 2 [place] [phone] 01/03/2025 6:45 EDT Treatment [facility] [place] [address] [place], [place] [address] Carlota Jin MD 1 [facility], [facility] 2 [place] [phone] 01/05/2025 6:45 EDT Treatment [facility] [place] [address] [place], [place] [phone] Carlota Jin MD 1 [facility], [facility] 2 [place] [phone] 01/08/2025 6:45 EDT Treatment [facility] [place] [address] [place], [place] [phone] Carlota Jin MD 1 [facility], [facility] 2 [place] [phone] 01/10/2025 6:45 EDT Treatment [facility] [place] [address] [place], [place] [phone] Carlota Jin MD 1 [facility], [facility] 2 [place] [phone] 01/12/2025 6:45 EDT Treatment [facility] [place] [address] [place], [place] [phone] Carlota Jin MD 1 [facility], [facility] 2 [place] [phone] 01/15/2025 6:45 EDT Treatment [facility] [place] [address] [place], [place] [phone] Carlota Jin MD 1 [facility], [facility] 2 [place] [phone] 01/17/2025 6:45 EDT Treatment [facility] [place] [address] [place], [place] [phone] Carlota Jin MD 1 [facility], [facility] 2 [place] [phone] 01/19/2025 6:45 EDT Treatment [facility] [place] [address] [place], [place] [phone] Carlota Jin MD 1 [facility], [facility] 2 [place] [phone] 01/22/2025 6:45 EDT Treatment [facility] [place] [address] [place], [place] [phone] Carlota Jin MD 1 [facility], [facility] 2 [place] [phone] 01/24/2025 6:45 EDT Treatment [facility] [address] [place], [place] [phone] Carlota Jin MD 1 [facility], [facility] 2 [place] [phone] 01/26/2025 6:45 EDT Treatment [facility] [address] [place], [place] [phone] Carlota Jin MD 1 [facility], [facility] 2 [place] [phone] 01/29/2025 6:45 EDT Treatment [facility] [place] [address] [place], [place] [phone] Carlota Jin MD 1 [facility], [facility] 2 [place] [phone] 01/31/2025 6:45 EDT Treatment [facility] [place] [address] [place], [place] [phone] Carlota Jin MD [address] [place] [address], [address] [phone] 02/02/2025 6:45 EDT Treatment [facility] [place] [address] [place], [place] [phone] Carlota Jin MD [address] [place] [address], [address] [phone] 02/05/2025 6:45 EDT Treatment [facility] [place] [address] [place], [place] [phone] Carlota Jin MD 1 [facility], [facility] 2 [place] [phone] 02/07/2025 6:45 EDT Treatment [facility] [place] [address] [place], [place] [phone] Carlota Jin MD 1 [facility], [facility] 2 [place] [phone] 02/09/2025 6:45 EDT Treatment [facility] [place] [address] [place], [place] [phone] Carlota Jin MD 1 [facility], [facility] 2 [place] [phone] 02/12/2025 6:45 EDT Treatment [facility] [place] [address] [place], [place] [address] Carlota Jin MD 1 [facility], [facility] 2 [place] [phone] 02/14/2025 6:45 EDT Treatment [facility] [place] [address] [place], [place] [phone] Carlota Jin MD 1 [facility], [facility] 2 [place] [phone] 02/16/2025 6:45 EDT Treatment [facility] [place] [address] [place] [address] Carlota Jin MD 1 [facility], [facility] 2 [place] [phone] 02/19/2025 6:45 EDT Treatment [facility] [place] [address] [place] [address] Carlota Jin MD 1 [facility], [facility] 2 [place] [phone] 02/21/2025 6:45 EDT Treatment [facility] [place] [address] [place], [place] [phone] Carlota Jin MD 1 [facility], [facility] 2 [place] [phone] (work) documented as of this encounter Procedures Procedure Name Priority Date/Time Associated Diagnosis Comments HEMODIALYSIS Routine 05/19/2024 6:20 EDT ESRD (end stage renal disease) [...] oral, ONCE IN DIALYSIS, 1 dose, On Wed05/19/24 at 0645, Routine, DialysisIndications:ESRD (end stage renal disease) ([facility]),Secondary hyperparathyroidism ([facility]) Given 05/19/2024 6:30 EDT 2 Tablets epoetin ken (EPOGEN) 20,000 unit/2 mL injection 10,000 Units 10,000 Units, intravenous, ONCE IN DIALYSIS, 1 dose, On Wed05/19/24 at 0645, Routine, DialysisIndications:ESRD (end stage renal disease) ([facility]),Anemia of chronic renal failure, unspecified CKD stage Given 05/19/2024 6:52 EDT 10,000 Units heparin injection 7,000 Units 7,000 Units, intravenous, ONCE IN DIALYSIS, 1 dose, On Wed05/19/24 at 0645, Routine, Dialysis, Now x1 bolus 3400 units to be given at the beginning of dialysis 900 units/hour to be given over the course of dialysis (7000 units total). Stop 1 hour prior to end of treatment. To be administered per Policy [id number].Indications:ESRD (end stage renal disease) ([facility]) Given 05/19/2024 6:52 EDT 7,000 Units LiquaCel liquid protein liquid 30 mL 30 mL, oral, ONCE IN DIALYSIS, 1 dose, On Wed05/19/24 at 0645, Patient's flavor preference: either, RoutineIndications:ESRD (end stage renal disease) ([facility]),Hypoalbuminemia Given 05/19/2024 6:29 EDT 30 mL documented in this encounter Orders Dialysis Count Last Ordered Date First Orde red Date HEMODIALYSIS 1 05/19/2024 documented in this encounter Care Teams Replanting Machine Operator Relationship Specialty Start Date End Date Ken Greer MD [address] [facility] [place] [address] PCP - General 07/07/23 documented as of this encounter
--- OUTSIDE RECORDS SUMMARY | 2024-12-05 12:03 | XMS_ITS | Encounter Summary ---
Author Organization [facility] Address [address] [place] [address] Care Team Providers Care Drug Coordinator Name Role Phone Ken Greer MD Primary Care Provider [phone] Encounter Details Date Type Department Care Team (Latest Contact Info) Description 05/30/2024 Travel Social History Tobacco Use Types Packs/Day Years Used Date Smoking Tobacco: Every Day Cigarettes 1 26.1 Started: 1998 Smokeless Tobacco: Never Alcohol Use Standard Drinks/Week Comments Yes 0 (1 standard drink = 0.6 oz pur e alcohol) Socially [facility] Utilities Answer Date Recorded In the [...] living situation today? I have a [facility] place to live 05/30/2024 Think about [...] EST Treatment [facility] [address] [place], [place] [id number] Carlota Jin MD [address] [place] [address], [facility] [address] [place] [phone] 12/08/2024 6:45 EST Treatment [facility] [address] [place], [place] [id number] Carlota Jin MD [address] [place] [address], [facility] [address] [place] [phone] 12/11/2024 6:45 EST Treatment [facility] [place] [address] [place], [place] [id number] Carlota Jin MD 1 [facility], [facility] [address] [place] [phone] 12/13/2024 6:45 EST Treatment [facility] [place] [address] [place], [place] [id number] Carlota Jin MD 1 [facility], [facility] [address] [place] [phone] 12/15/2024 6:45 EST Treatment [facility] [place] [address] [place] [address] Carlota Jin MD [address] [place] [address], [facility] [address] [place] [phone] 12/18/2024 6:45 EST Treatment [facility] [place] [address] [place], [place] [id number] Carlota Jin MD 1 [facility], [facility] [address] [place] [phone] 12/20/2024 6:45 EST Treatment [facility] [place] [address] [place], [place] [id number] Carlota Jin MD 1 [facility], [facility] [address] [place] [phone] 12/22/2024 6:45 EST Treatment [facility] [place] [address] [place], [place] [id number] Carlota Jin MD 1 [facility], [facility] [address] [place] [phone] 12/25/2024 6:45 EST Treatment [facility] [place] [address] [place], [place] [id number] Carlota iJn MD 1 [facility], [facility] [address] [place] [phone] 12/27/2024 6:45 EST Treatment [facility] [place] [address] [place] [address] Carlota Jin MD 1 [facility], [facility] [address] [place] [phone] 12/29/2024 6:45 EST Treatment [facility] [place] [address] [place] [address] Carlota Jin MD 1 [facility], [facility] [address] [place] [phone] 01/01/2025 6:45 EDT Treatment [facility] [place] [address] [place] [address] Carlota Jin MD 1 [facility], [facility] [address] [place] [phone] 01/03/2025 6:45 EDT Treatment [facility] [place] [address] [place], [place] [id number] Carlota Jin MD 1 [facility], [facility] [address] [place] [phone] 01/05/2025 6:45 EDT Treatment [facility] [address] [place], [place] [id number] Carlota Jin MD 1 [facility], [facility] [address] [place] [phone] 01/08/2025 6:45 EDT Treatment [facility] [place] [address] [place], [place] [id number] Carlota Jin MD 1 [facility], [facility] [address] [place] [phone] 01/10/2025 6:45 EDT Treatment [facility] [place] [address] [place] [address] Carlota Jin MD 1 [facility], [address] [phone] 01/12/2025 6:45 EDT Treatment [facility] [place] [address] [place], [place] [id number] Carlota Jin MD 1 [facility], [facility] [address] [place] [phone] 01/15/2025 6:45 EDT Treatment [facility] [place] [address] [place], [place] [id number] Carlota Jin MD 1 [facility], [facility] [address] [place] [phone] 01/17/2025 6:45 EDT Treatment [facility] [address] [place], [place] [id number] Carlota Jin MD 1 [facility], [facility] [address] [place] [phone] 01/19/2025 6:45 EDT Treatment [facility] [place] [address] [place] [address] Carlota Jin MD 1 [facility], [facility] [address] [place] [phone] 01/22/2025 6:45 EDT Treatment [facility] [place] [address] [place] [address] Carlota Jin MD 1 [facility], [facility] [address] [place] [phone] 01/24/2025 6:45 EDT Treatment [facility] [address] [place] [address] Carlota Jin MD 1 [facility], [facility] [address] [place] [phone] 01/26/2025 6:45 EDT Treatment [facility] [place] [address] [place] [address] Carlota Jin MD 1 [facility], [facility] [address] [place] [phone] 01/29/2025 6:45 EDT Treatment [facility] [place] [address] [place], [place] [address] Carlota Jin MD 1 [facility], [facility] [address] [place] [phone] 01/31/2025 6:45 EDT Treatment [facility] [address] [place], [place] [address] Carlota Jin MD 1 [facility], [facility] [address] [place] [phone] 02/02/2025 6:45 EDT Treatment [facility] [place] [address] [place] [address] Carlota Jin MD 1 [facility], [facility] [address] [place] [phone] 02/05/2025 6:45 EDT Treatment [facility] [place] [address] [place], [place] [address] Carlota Jin MD 1 [facility], [facility] [address] [place] [phone] 02/07/2025 6:45 EDT Treatment [facility] [place] [address] [place], [place] [address] Carlota Jin MD 1 [facility], [facility] [address] [place] [phone] 02/09/2025 6:45 EDT Treatment [facility] [place] [address] [place], [place] [id number] Carlota Jin MD 1 [facility], [facility] [address] [place] [phone] 02/12/2025 6:45 EDT Treatment [facility] [place] [address] [place], [place] [address] Carlota Jin MD 1 [facility], [address] [phone] 02/14/2025 6:45 EDT Treatment [facility] [place] [address] [place], [place] [id number] Carlota Jin MD [address] [phone] 02/16/2025 6:45 EDT Treatment [facility] [place] [address] [place], [place] [id number] Carlota Jin MD 1 [facility], [address] [phone] 02/19/2025 6:45 EDT Treatment [facility] [place] [address] [place], [place] [id number] Carlota Jin MD [address] [phone] 02/21/2025 6:45 EDT Treatment [facility] [place] [address] [place], [place] [id number] Carlota Jin MD [address] [phone] documented as of this encounter Visit Diagnoses Not on filedocumented in this encounter Additional Health Concerns Infection Onset Date Last Indicated Resolved Time R/O COVID-19 05/30/2024 05/30/2024 05/30/2024 20:5 0 EDT documented as of this encounter Care Teams Drug Coordinator Relationship Specialty Start Date End Date Ken Greer MD [address] [facility] [place] [address] PCP - General 07/07/23 documented as of this encounter
--- OUTSIDE RECORDS SUMMARY | 2024-12-05 12:03 | XMS_ITS | Encounter Summary ---
Author Organization [facility] Address [address] [place] [address] Care Team Providers Care Math And Sciences Department Chair Name Role Phone Ken Greer MD Primary Care Provider [phone] Reason for Visit * Episode Based Medications (Routine) - New Request Specialty Diagnoses / Procedures Referred By Nader pena Referred To Contact Diagnoses ESRD (end stage renal disease) ([facility]) Carlota Jin MD [address] [place] [phone] Phone: tel: fax: [facility] [place] [address] [place] [address] Phone: tel: fax: Referral ID Status Reason Start Date Expiration Date V isits Requested Visits Authorized [id number] New Request 03/17/2024 1 1 Encounter Details Date Type Department Care Team (Latest Contact Info) Description 05/15/2024 6:45 EDT Treatment [facility] [address] [place], [place] [id number] Carlota Jin MD [address] [place] [phone] ESRD (end stage renal disease) ([facility]) (Primary Dx); Anemia of chronic renal failure, unspecified CKD stage; Hypoalbuminemia; Secondary hyperparathyroidism ([facility]) Social History Tobacco [...] - Temperature - - Respiratory Rate 16 05/15/2024 0621 EDT Oxygen Saturation - - Inhaled Oxygen Concentration - - Weight 80.6 kg (177 lb 11.1 oz) 05/15/2024 0624 EDT Height - - Body Mass Index 25.5 12/20/2023 2202 EST documented in this encounter [...] Niekrewicz, Angélica, RN documented in this encounter Miscellaneous Notes * Flowsheet Note - Marcela Cox RN - 05/15/2024 7956 EDT 05/15/24 1041 Post-Hemodialysis Assessment Total Blood Processed (L) 91.5 Liters On Line Clearance: spKt/V 1.68 spKt/V Dialyzer Clearance Lightly streaked Treatment UFR (ml:kg:hr) 8.63 ml:kg:hr Final Critline Profile (%/hr) -0.82 Final Profile Profile A Critline refill Negative (H1: 28.0 H2: 27.7) Fluid Removed (L) 2.8 L Post-Dialysis Scale Weight 97 kg (213 lb 13.5 oz) Wheelchair Weight 19.1 kg (42 lb 1.7 oz) Prosthesis Weight 0 kg (0 lb) Post-Treatment Weight (kg) 77.9 Treatment Weight Change (kg) 2.7 kg Day Target Weight (kg) 78.5 Post Sitting/Lying BP (!) 194/92 Post Sitting/Lying pulse 68 Temp 35.5 ??C (95.9 ??F) Temp src [...] Response to Treatment Tolerated tx well. Removed 2.8L UF goal without difficulty. UF goal adjusted per crit line, vital signs and pt tolerance. Comments No issues during tx, no concerns voiced post tx. documented in this encounter Plan of Treatment Upcoming Encounters Date Type Department Care Team (Late st Contact Info) Description 12/06/2024 6:45 EST Treatment [facility] [place] [address] [place] [address] [address] MD [facility] [address] [place] [phone] 12/08/2024 6:45 EST Treatment [facility] [place] [address] [place], [place] [id number] Carlota Jin MD 1 [facility], [facility] 2 [place] [phone] 12/11/2024 6:45 EST Treatment [facility] [place] [address] [place], [place] [id number] Carlota Jin MD 1 [facility], [facility] 2 [place] [phone] 12/13/2024 6:45 EST Treatment [facility] [place] [address] [place], [place] [id number] Carlota Jin MD 1 [facility], [facility] 2 [place] [phone] 12/15/2024 6:45 EST Treatment [facility] [place] [address] [place], [place] [id number] Carlota Jin MD 1 [facility], [facility] [address] [place] [phone] 12/18/2024 6:45 EST Treatment [facility] [place] [address] [place], [place] [id number] Carlota Jin MD 1 [facility], [facility] 2 [place] [phone] 12/20/2024 6:45 EST Treatment [facility] [place] [address] [place], [place] [address] Carlota Jin MD 1 [facility] [address] [place] [phone] 12/22/2024 6:45 EST Treatment [facility] [place] [address] [place], [place] [id number] Carlota Jin MD 1 [facility] 2 [place] [phone] 12/25/2024 6:45 EST Treatment [facility] [place] [address] [place], [place] [id number] Carlota Jin MD 1 [facility], [facility] 2 [place] [phone] 12/27/2024 6:45 EST Treatment [facility] [place] [address] [place] [address] Carlota Jin MD 1 [facility], [facility] 2 [place] [phone] 12/29/2024 6:45 EST Treatment [facility] [address] [place], [place] [id number] Carlota Jin MD 1 [facility], [facility] 2 [place] [phone] 01/01/2025 6:45 EDT Treatment [facility] [place] [address] [place], [place] [id number] Carlota Jin MD 1 [facility], [facility] 2 [place] [phone] 01/03/2025 6:45 EDT Treatment [facility] [place] [address] [place], [place] [id number] Carlota Jin MD 1 [facility], [facility] 2 [place] [phone] 01/05/2025 6:45 EDT Treatment [facility] [place] [address] [place], [place] [address] Carlota Jin MD 1 [facility], [facility] 2 [place] [phone] 01/08/2025 6:45 EDT Treatment [facility] [place] [address] [place] [address] Carlota Jin MD [address] [place] [address], [facility] 2 [place] [phone] 01/10/2025 6:45 EDT Treatment [facility] [place] [address] [place], [place] [id number] Carlota Jin MD [address] [place] [address], [facility] 2 [place] [phone] 01/12/2025 6:45 EDT Treatment [facility] [place] [address] [place], [place] [id number] Carlota Jin MD 1 [facility], [facility] 2 [place] [phone] 01/15/2025 6:45 EDT Treatment [facility] [place] [address] [place], [place] [phone] Carlota Jin MD 1 [facility], [facility] 2 [place] [phone] 01/17/2025 6:45 EDT Treatment [facility] [place] [address] [place], [place] [id number] Carlota Jin MD 1 [facility], [facility] 2 [place] [phone] 01/19/2025 6:45 EDT Treatment [facility] [place] [address] [place] [address] Carlota Jin MD 1 [facility], [address] [phone] 01/22/2025 6:45 EDT Treatment [facility] [place] [address] [place], [place] [id number] Carlota Jin MD 1 [facility], [address] [phone] 01/24/2025 6:45 EDT Treatment [facility] [place] [address] [place] [address] Carlota Jin MD 1 [facility], [facility] 2 [place] [phone] 01/26/2025 6:45 EDT Treatment [facility] [place] [address] [place], [place] [id number] Carlota Jin MD 1 [facility], [facility] 2 [place] [phone] 01/29/2025 6:45 EDT Treatment [facility] [place] [address] [place], [place] [address] Carlota Jin MD 1 [facility], [facility] 2 [place] [phone] 01/31/2025 6:45 EDT Treatment [facility] [place] [address] [place], [place] [id number] Carlota Jin MD 1 [facility], [facility] 2 [place] [phone] 02/02/2025 6:45 EDT Treatment [facility] [place] [address] [place], [place] [address] Carlota Jin MD 1 [facility], [address] [phone] 02/05/2025 6:45 EDT Treatment [facility] [place] [address] [place], [place] [address] Carlota Jin MD 1 [facility], [facility] 2 [place] [phone] 02/07/2025 6:45 EDT Treatment [facility] [place] [address] [place], [place] [id number] Carlota Jin MD 1 [facility], [facility] 2 [place] [phone] 02/09/2025 6:45 EDT Treatment [facility] [place] [address] [place], [place] [address] Carlota Jin MD 1 [facility], [address] [phone] 02/12/2025 6:45 EDT Treatment [facility] [place] [address] [place] [address] Carlota Jin MD 1 [facility], [address] [phone] 02/14/2025 6:45 EDT Treatment [facility] [place] [address] [place], [place] [id number] Carlota Jin MD 1 [facility], [address] [phone] 02/16/2025 6:45 EDT Treatment [facility] [place] [address] [place], [place] [phone] Carlota Jin MD 1 [facility], [address] [phone] 02/19/2025 6:45 EDT Treatment [facility] [place] [address] [place], [place] [phone] Carlota Jin MD 1 [facility], [address] [phone] 02/21/2025 6:45 EDT Treatment [facility] [place] [address] [place], [place] [phone] Carlota Jin MD 1 [facility], Level [address] [place] [phone] documented as of this encounter Procedures Procedure Name Priority Date/Time Associated Diagnosis Comments HEMODIALYSIS Routine 05/15/2024 6:21 EDT ESRD (end stage renal disease) ([facility]) documented in this encounter Visit Diagnoses Diagnosis ESRD (end stage renal disease) ([facility])- Primary End stage renal disease Anemia of chronic renal failure, unspecified CKD stage Hypoalbuminemia Other disorders of plasma protein metabolism Secondary hyperparathyroidism ([facility]) Secondary hyperparathyroidism (of renal origin) documented in this encounter Administered Medications Inactive Administered Medications - up to 3 most recent administrations Medication Order MAR Action Action Date Dose Rate Site calcium carbonate (TUMS) tablet 500 mg (200 mg elemental calcium) 2 Tablet 2 Tablet, oral, ONCE IN DIALYSIS, 1 dose, On Wed05/15/24 at 0645, Routine, DialysisIndications:ESRD (end stage renal disease) ([facility]),Secondary hyperparathyroidism ([facility]) Given 05/15/2024 6:34 EDT 2 Tablets epoetin ken (EPOGEN) 20,000 unit/2 mL injection 10,000 Units 10,000 Units, intravenous, ONCE IN DIALYSIS, 1 dose, On Wed05/15/24 at 0645, Routine, DialysisIndications:ESRD (end stage renal disease) ([facility]),Anemia of chronic renal failure, unspecified CKD stage Given 05/15/2024 6:46 EDT 10,000 Units heparin injection 7,000 Units 7,000 Units, intravenous, ONCE IN DIALYSIS, 1 dose, On Wed05/15/24 at 0645, Routine, Dialysis, Now x1 bolus 3400 units to be given at the beginning of dialysis 900 units/hour to be given over the course of dialysis (7000 units total). Stop 1 hour prior to end of treatment. To be administered per Policy [id number].Indications:ESRD (end stage renal disease) ([facility]) Given 05/15/2024 6:45 EDT 7,000 Units LiquaCel liquid protein liquid 30 mL 30 mL, oral, ONCE IN DIALYSIS, 1 dose, On Wed05/15/24 at 0645, Patient's flavor preference: either, RoutineIndications:ESRD (end stage renal disease) ([facility]),Hypoalbuminemia Given 05/15/2024 6:34 EDT 30 mL documented in this encounter Orders Dialysis Count Last Ordered Date First Orde red Date HEMODIALYSIS 1 05/15/2024 documented in this encounter Care Teams Math And Sciences Department Chair Relationship Specialty Start Date End Date Ken Greer MD [address] [place] [address] PCP - General 07/07/23 documented as of this encounter
--- OUTSIDE RECORDS SUMMARY | 2024-12-05 12:03 | XMS_ITS | Encounter Summary ---
Author Organization [facility] Address [address] [place] [address] Care Team Providers Care Practice Professional Name Role Phone Ken Greer MD Primary Care Provider [phone] Reason for Visit * Reason Onset Date Comments Appointment Related 05/18/2024 Encounter Details Date Type Department Care Team (Late st Contact Info) Description 05/18/2024 Telephone [facility] [place] [address] [place] [address] Valery Rice RN [address] [place] [address] Appointment Related Social History Tobacco Use Types Packs/Day Years [...] encounter Miscellaneous Notes * Telephone Encounter - Natali Damon - 05/18/2024 1542 EDT Outgoing call to Xander to discuss no show appointment scheduled today. He had another appointment andforgot about the one with transplant. He rescheduled to 07/20. documented in this encounter Plan of Treatment Upcoming Encounters Date Type Department Care Team (Late st Contact Info) Description 12/06/2024 6:45 EST Treatment [facility] [place] [address] [place], [place] [address] Carlota Jin MD [address] [place], [place] [address]ab, [facility] [address] [place] [phone] 12/08/2024 6:45 EST Treatment [facility] [place] [address] [place] [address] Carlota Jin MD [address] [place], [place] [address], [facility] [address] [place] [phone] 12/11/2024 6:45 EST Treatment [facility] [place] [address] [place], [place] [address] Carlota Jin MD 1 [facility], [address] [phone] 12/13/2024 6:45 EST Treatment [facility] [place] [address] [place] [address] Carlota Jin MD 1 [facility], [address] [phone] 12/15/2024 6:45 EST Treatment [facility] [place] [address] [place], [place] [id number] Carlota Jin MD 1 [facility], [address] [phone] 12/18/2024 6:45 EST Treatment [facility] [place] [address] [place], [place] [id number] Carlota Jin MD 1 [facility], [address] [phone] 12/20/2024 6:45 EST Treatment [facility] [address] [place], [place] [id number] Carlota Jin MD [address] [phone] 12/22/2024 6:45 EST Treatment [facility] [address] [place], [place] [phone] Carlota Jin MD 1 [facility], [address] [phone] 12/25/2024 6:45 EST Treatment [facility] [place] [address] [place], [place] [phone] Carlota Jin MD 1 [facility], [facility] [address] [place] [phone] 12/27/2024 6:45 EST Treatment [facility] [place] [address] [place], [place] [id number] Carlota Jin MD 1 [facility], [facility] [address] [place] [phone] 12/29/2024 6:45 EST Treatment [facility] [address] [place] [address] Carlota Jin MD 1 [facility], [facility] [address] [place] [phone] 01/01/2025 6:45 EDT Treatment [facility] [address] [place], [place] [id number] Carlota Jin MD 1 [facility], [facility] [address] [place] [phone] 01/03/2025 6:45 EDT Treatment [facility] [address] [place], [place] [id number] Carlota Jin MD 1 [facility], [facility] [address] [place] [phone] 01/05/2025 6:45 EDT Treatment [facility] [place] [address] [place], [place] [phone] Carlota Jin MD 1 [facility], [facility] [address] [place] [phone] 01/08/2025 6:45 EDT Treatment [facility] [place] [address] [place], [place] [phone] Carlota Jin MD 1 [facility], [facility] [address] [place] [phone] 01/10/2025 6:45 EDT Treatment [facility] [place] [address] [place], [place] [id number] Carlota Jin MD 1 [facility], [address] [phone] 01/12/2025 6:45 EDT Treatment [facility] [place] [address] [place], [place] [phone] Carlota Jin MD [address] [phone] 01/15/2025 6:45 EDT Treatment [facility] [place] [address] [place], [place] [id number] Carlota Jin MD [address] [phone] 01/17/2025 6:45 EDT Treatment [facility] [place] [address] [place], [place] [id number] Carlota Jin MD 1 [facility], [address] [place] [phone] 01/19/2025 6:45 EDT Treatment [facility] [place] [address] [place], [place] [id number] Carlota Jin MD 1 [facility], [facility] [address] [place] [phone] 01/22/2025 6:45 EDT Treatment [facility] [place] [address] [place], [place] [id number] Carlota Jin MD 1 [facility], [facility] [address] [place] [phone] 01/24/2025 6:45 EDT Treatment [facility] [place] [address] [place], [place] [id number] Carlota Jin MD 1 [facility], [facility] [address] [place] [phone] 01/26/2025 6:45 EDT Treatment [facility] [place] [address] [place] [address] Carlota Jin MD 1 [facility], [facility] [address] [place] [phone] 01/29/2025 6:45 EDT Treatment [facility] [address] [place], [place] [phone] Carlota Jin MD 1 [facility], [facility] [address] [place] [phone] 01/31/2025 6:45 EDT Treatment [facility] [place] [address] [place], [place] [phone] Carlota Jin MD 1 [facility], [facility] [address] [place] [phone] 02/02/2025 6:45 EDT Treatment [facility] [place] [address] [place], [place] [id number] Carlota Jin MD 1 [facility], [facility] [address] [place] [phone] 02/05/2025 6:45 EDT Treatment [facility] [place] [address] [place], [place] [id number] Carltoa Jin MD 1 [facility], [address] [phone] 02/07/2025 6:45 EDT Treatment [facility] [place] [address] [place], [place] [id number] Carlota Jin MD 1 [facility], [facility] [address] [place] [phone] 02/09/2025 6:45 EDT Treatment [facility] [place] [address] [place], [place] [id number] Carlota Jin MD 1 [facility], [facility] [address] [place] [phone] 02/12/2025 6:45 EDT Treatment [facility] [place] [address] [place], [place] [id number] Carlota Jin MD 1 [facility], [facility] [address] [place] [phone] 02/14/2025 6:45 EDT Treatment [facility] [place] [address] [place], [place] [address] Carlota Jin MD 1 [facility], [facility] [address] [place] [phone] 02/16/2025 6:45 EDT Treatment [facility] [place] [address] [place], [place] [id number] Carlota Jin MD 1 [facility], [address] [phone] 02/19/2025 6:45 EDT Treatment [facility] [place] [address] [place], [place] [id number] Carlota Jin MD 1 [facility], [address] [phone] 02/21/2025 6:45 EDT Treatment [facility] [address] [place], [place] [phone] Carlota Jin MD 1 [facility], [facility] [address] [place] [phone] documented as of this encounter Visit Diagnoses Not on filedocumented in this encounter Care Teams Practice Professional Relationship Specialty Start Date End Date [place] [address] PCP - General 07/07/23 documented as of this encounter
--- OUTSIDE RECORDS SUMMARY | 2024-12-05 12:03 | XMS_ITS | Encounter Summary ---
Author Organization [facility] Address [address] [place] [address] Care Team Providers Care Hazardous Waste Remover Name Role Phone Ken Greer MD Primary Care Provider [phone] Reason for Visit * Episode Based Medications (Routine) - New Request Specialty Diagnoses / Procedures Referred By Nader pena Referred To Contact Diagnoses ESRD (end stage renal disease) ([facility]) Carlota Jin MD [address] [place] [phone] Phone: tel: fax: [facility] [place] [address] [place] [address] Phone: tel: fax: Referral ID Status Reason Start Date Expiration Date V isits Requested Visits Authorized [id number] New Request 03/17/2024 1 1 Encounter Details Date Type Department Care Team (Latest Contact Info) Description 05/26/2024 6:45 EDT Treatment [facility] [address] [place], [place] [phone] Carlota Jin MD [address] [place] [phone] ESRD (end stage renal disease) ([facility]) (Primary Dx); Anemia of chronic renal failure, unspecified CKD stage; Hypoalbuminemia; Secondary hyperparathyroidism ([facility]) Social History Tobacco Use Types Packs/Day [...] - Temperature - - Respiratory Rate 16 05/26/2024 0625 EDT Oxygen Saturation - - Inhaled Oxygen Concentration - - Weight 77.1 kg (169 lb 15.6 oz) 05/26/2024 0631 EDT Height - - Body Mass Index 24.39 12/20/2023 2202 EST documented in this encounter [...] Niekrewicz, Angélica, RN documented in this encounter Progress Notes * Keila Vizcarra RN - 05/26/2024 0645 EDT % BV change: -2.7% Overall Profile: A H1: 28.8 H2: 29.3 Assessment: Based on this info and his assessment, it appears that this patient has more fluid on and his prescribed weight could be lowered. documented in this encounter Miscellaneous Notes * Flowsheet Note - Keila Vizcarra RN - 05/26/2024 1119 EDT 05/26/24 1052 Post-Hemodialysis Assessment Total Blood Processed (L) 91.29 Liters On Line Clearance: spKt/V 1.58 spKt/V Dialyzer Clearance Lightly streaked Final Critline Profile (%/hr) -0.68 Final Profile Profile A Critline refill Positive (28.8/29.3, pt could have more fluid on. Can challenge goal on Wednesday if able to assess further.) Fluid Removed (L) 0.7 L Post-Dialysis Scale Weight 96.6 kg (212 lb 15.4 oz) Wheelchair Weight 19 kg (41 lb 14.2 oz) Prosthesis Weight 0 kg (0 lb) Post-Treatment Weight (kg) 77.6 Post Sitting/Lying BP (!) 168/106 Post Sitting/Lying pulse 118 Temp 36.6 ??C (97.9 ??F) Temp src Temporal Minutes Short -240 Post access assessment AVF/AFG Hemostasis achieved Yes Note pt held sites with blue clamps for 10 minutes Orientation Alert and Oriented x3 Yes Time Yes Place Yes Person Yes Cooperative Yes Disoriented No Discharge Ambulation Methods Departs via w/c Wrap up items Patient Response to Treatment Tolerated treatment well. Removed 700 mL UF goal without difficulty. Comments No issues during treatment. No concerns voiced post treatment. documented in this encounter Plan of Treatment Upcoming Encounters Date Type Department Care Team (Late st Contact Info) Description 12/06/2024 6:45 EST Treatment [facility] [address] [place], [place] [address] Carlota Jin MD 1 [facility], [address] [phone] 12/08/2024 6:45 EST Treatment [facility] [place] [address] [place] [address] Carlota Jin MD 1 [facility], [address] [phone] 12/11/2024 6:45 EST Treatment [facility] [place] [address] [place], [place] [phone] Carlota Jin MD 1 [facility], [address] [phone] 12/13/2024 6:45 EST Treatment [facility] [place] [address] [place], [place] [phone] Carlota Jin MD 1 [facility], [address] [phone] 12/15/2024 6:45 EST Treatment [facility] [address] [place], [place] [phone] Carlota Jin MD [address] [phone] 12/18/2024 6:45 EST Treatment [facility] [place] [address] [place], [place] [phone] Carlota Jin MD 1 [facility], [address] [phone] 12/20/2024 6:45 EST Treatment [facility] [place] [address] [place], [place] [phone] Carlota Jin MD 1 [facility] [address] [place] [phone] 12/22/2024 6:45 EST Treatment [facility] [place] [address] [place], [place] [phone] Carlota Jin MD [facility] [address] [place] [phone] 12/25/2024 6:45 EST Treatment [facility] [place] [address] [place] [address] Carlota Jin MD 1 [facility], [facility] [address] [place] [phone] 12/27/2024 6:45 EST Treatment [facility] [place] [address] [place], [place] [phone] Carlota Jin MD 1 [facility], [facility] [address] [place] [phone] 12/29/2024 6:45 EST Treatment [facility] [address] [place], [place] [phone] Carlota Jin MD 1 [facility] [address] [place] [phone] 01/01/2025 6:45 EDT Treatment [facility] [place] [address] [place], [place] [address] Carlota Jin MD 1 [facility], [facility] [address] [place] [phone] 01/03/2025 6:45 EDT Treatment [facility] [place] [address] [place], [place] [phone] Carlota Jin MD 1 [facility], [address] [phone] 01/05/2025 6:45 EDT Treatment [facility] [place] [address] [place], [place] [phone] Carlota Jin MD 1 [facility], [address] [phone] 01/08/2025 6:45 EDT Treatment [facility] [place] [address] [place], [place] [phone] Carlota Jin MD [address] [phone] 01/10/2025 6:45 EDT Treatment [facility] [place] [address] [place], [place] [phone] Carlota Jin MD [address] [phone] 01/12/2025 6:45 EDT Treatment [facility] [place] [address] [place], [place] [id number] Carlota Jin MD 1 [facility], [facility] [address] [place] [phone] 01/15/2025 6:45 EDT Treatment [facility] [place] [address] [place], [place] [phone] Carlota Jin MD 1 [facility], [facility] [address] [place] [phone] 01/17/2025 6:45 EDT Treatment [facility] [place] [address] [place], [place] [phone] Carlota Jin MD 1 [facility], [facility] [address] [place] [phone] 01/19/2025 6:45 EDT Treatment [facility] [place] [address] [place], [place] [phone] Carlota Jin MD 1 [facility], [address] [phone] 01/22/2025 6:45 EDT Treatment [facility] [place] [address] [place] [address] Carlota Jin MD 1 [facility], [facility] [address] [place] [phone] 01/24/2025 6:45 EDT Treatment [facility] [place] [address] [place], [place] [phone] Carlota Jin MD 1 [facility], [facility] [address] [place] [phone] 01/26/2025 6:45 EDT Treatment [facility] [place] [address] [place], [place] [phone] Carlota Jin MD 1 [facility], [facility] [address] [place] [phone] 01/29/2025 6:45 EDT Treatment [facility] [place] [address] [place], [place] [phone] Carlota Jin MD 1 [facility], [address] [phone] 01/31/2025 6:45 EDT Treatment [facility] [place] [address] [place], [place] [phone] Carlota Jin MD 1 [facility], [address] [phone] 02/02/2025 6:45 EDT Treatment [facility] [place] [address] [place], [place] [phone] Carlota Jin MD 1 [facility], [address] [phone] 02/05/2025 6:45 EDT Treatment [facility] - [place] [address] [place], [place] [phone] Carlota Jin MD 1 [facility], [address] [phone] 02/07/2025 6:45 EDT Treatment [facility] [place] [address] [place], [place] [phone] Carlota Jin MD 1 [facility] [address] [place] [phone] 02/09/2025 6:45 EDT Treatment [facility] [place] [address] [place], [place] [address] Carlota Jin MD 1 [facility], [facility] [address] [place] [phone] 02/12/2025 6:45 EDT Treatment [facility] [place] [address] [place], [place] [phone] Carlota Jin MD 1 [facility], [facility] [address] [place] [phone] 02/14/2025 6:45 EDT Treatment [facility] [place] [address] [place], [place] [address] Carlota Jin MD 1 [facility], [facility] [address] [place] [phone] 02/16/2025 6:45 EDT Treatment [facility] [address] [place], [place] [phone] Carlota Jin MD 1 [facility], [facility] [address] [place] [phone] 02/19/2025 6:45 EDT Treatment [facility] [address] [place], [place] [address] Carlota Jin MD 1 [facility], [facility] [address] [place] [phone] 02/21/2025 6:45 EDT Treatment [facility] [place] [address] [place] [address] Carlota Jin MD 1 [facility], [place] [address] [place] [phone] documented as of this encounter Procedures Procedure Name Priority Date/Time Associated Diagnosis Comments HEMODIALYSIS Routine 05/26/2024 6:25 EDT ESRD (end stage renal disease) ([facility]) documented in this encounter Visit Diagnoses Diagnosis ESRD (end stage renal disease) ([facility])- Primary End stage renal disease Anemia of chronic renal failure, unspecified CKD stage Hypoalbuminemia Other disorders of plasma protein metabolism Secondary hyperparathyroidism ([facility]) Secondary hyperparathyroidism (of renal origin) documented in this encounter Administered Medications Inactive Administered Medications - up to 3 most recent administrations Medication Order MAR Action Action Date Dose Rate Site acetaminophen (TYLENOL) tablet 650 mg 650 mg, oral, EVERY 4 HOURS PRN, Starting on Wed05/26/24 at 0631, Until Wed05/26/24 at 1323, Pain, Routine, DialysisIndications:ESRD (end stage renal disease) ([facility]) Given 05/26/2024 7:01 EDT 650 mg calcium carbonate (TUMS) tablet 500 mg (200 mg elemental calcium) 2 Tablet 2 Tablet, oral, ONCE IN DIALYSIS, 1 dose, On Wed05/26/24 at 0645, Routine, DialysisIndications:ESRD (end stage renal disease) ([facility]),Secondary hyperparathyroidism ([facility]) Given 05/26/2024 7:01 EDT 2 Tablets epoetin ken (EPOGEN) 20,000 unit/2 mL injection 10,000 Units 10,000 Units, intravenous, ONCE IN DIALYSIS, 1 dose, On Wed05/26/24 at 0645, Routine, DialysisIndications:ESRD (end stage renal disease) ([facility]),Anemia of chronic renal failure, unspecified CKD stage Given 05/26/2024 7:00 EDT 10,000 Units heparin injection 7,000 Units 7,000 Units, intravenous, ONCE IN DIALYSIS, 1 dose, On 8/2/24 at 0645, Routine, Dialysis, Now x1 bolus 3400 units to be given at the beginning of dialysis 900 units/hour to be given over the course of dialysis (7000 units total). Stop 1 hour prior to end of treatment. To be administered per Policy [id number].Indications:ESRD (end stage renal disease) ([facility]) Given 05/26/2024 7:01 EDT 7,000 Units LiquaCel liquid protein liquid 30 mL 30 mL, oral, ONCE IN DIALYSIS, 1 dose, On Wed05/26/24 at 0645, Patient's flavor preference: either, RoutineIndications:ESRD (end stage renal disease) ([facility]),Hypoalbuminemia Given 05/26/2024 7:00 EDT 30 mL documented in this encounter Orders Dialysis Count Last Ordered Date First Orde red Date HEMODIALYSIS 1 05/26/2024 documented in this encounter Care Teams Hazardous Waste Remover Relationship Specialty Start Date End Date Ken Greer MD [address] [place] [address] PCP - General 07/07/23 documented as of this encounter
--- OUTSIDE RECORDS SUMMARY | 2024-12-05 12:04 | XMS_ITS | Encounter Summary ---
Author Organization [facility] Address [address] [place] [address] Care Team Providers Care Retail Sales Vitamin Consultant Name Role Phone Ken Greer MD Primary Care Provider [phone] Encounter Details Date Type Department Care Team (Late st Contact Info) Description 05/11/2024 Documentation Visit [address] [place] [address] Shelley Eden, RD [address] [place] [address] Social History Tobacco Use Types Packs/Day Years [...] Progress Notes * Shelley Eden, RD - 05/11/2024 1452 EDT Dialysis Dietitian's Monthly Assessment Met with patient on 05/03/24 Family/caregivers or others present: lives with his Information obtained from: patient Recent Hospitalizations: 03/13-03/14/24 COVID , 02/18/24-02/25/24 BKA, 11/07-10/31/23 COVID and diabetic foot infection 02/20 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 Spoke with she said he is having a hard time at home . PT and homehealth are getting set up. He is eating fair . We discussed high k level and binder regimen Appetite: Declined Appetite scale (0-10): No number given Gastrointestinal: No issues reported Skin integrity: S/p amp and also now with black area on right foot Diabetes: Yes all over high of 336 recently Diabetes Management: Self Monitoring of Blood Glucose on insulin but does not check Diet Recall: B eggs and toast L ? D BBQ chix, rice and asparagus Fluid: Water, Coffee, Milk, Juice Alcohol: will need to f/u Prescribed Weight:78.5 Post-Dialytic Weight: 77.7 05/01/2024 10:48 05/03/2024 10:48 05/05/2024 10:44 05/08/2024 10:42 05/10/2024 10:45 - ( Kg ) 78.6 78.5 78.2 78.2 77.7 UFR: 05/01/2024 10:48 05/03/2024 10:48 05/05/2024 10:44 05/08/2024 10:42 05/10/2024 10:45 - mL/Kg/hr 10.45 ml:kg:hr 10.83 ml:kg:hr 6.66 ml:kg:hr 12.42 ml:kg:hr 7.66 ml:kg:hr URR: 71.186 (Calculated from:; BUN Pre-Dialysis: 59 mg/dL at 05/01/2024 10:30; BUN Post-Dialysis: 17 mg/dL at 05/01/2024 10:30) Kt/V: 1.49 (Calculated from:; BUN Pre-Dialysis: 59 mg/dL at 05/01/2024 10:30; BUN Post-Dialysis: 17 mg/dL at 05/01/2024 10:30; Pre-Treatment Weight (kg): 81.9 at 05/01/2024 6:31; Post-Treatment Weight (kg): 78.6 at 05/01/2024 10:48; Duration of Treatment (minutes): 241 minutes at 05/01/2024 10:48) PCR: 1.08 (Calculated from:; BUN Pre-Dialysis: 59 mg/dL at 05/01/2024 10:30; BUN Post-Dialysis: 17 mg/dL at 05/01/2024 10:30; Pre-Treatment Weight (kg): 81.9 at 05/01/2024 6:31; Post-Treatment Weight (kg):78.6 at 05/01/2024 10:48; Duration of Treatment (minutes): 241 minutes at 05/01/2024 10:48; Age: 58 years) Pertinent Labs include: Lab Results Component Value Date LABALBU 3.0 (L) 05/01/2024 LABALBU 2.9 (L) 03/27/2024 Lab Results Component Value Date BUNPRE 59 (H) 05/01/2024 BUNPRE 59 (H) 05/01/2024 NA 137 05/01/2024 NA 134 (L) 03/27/2024 K 5.6 (H) 05/05/2024 K 7.1 (H) 05/01/2024 CL 100 05/01/2024 CL 100 03/27/2024 CO2 23 05/01/2024 CO2 21 (L) 03/27/2024 MG 2.5 05/01/2024 MG 2.4 03/27/2024 CALCIUM 9.1 05/01/2024 CALCIUM 8.8 03/27/2024 CALCCA 9.9 05/01/2024 CALCCA 9.7 03/27/2024 PHOS 8.3 (H) 05/01/2024 PHOS 8.4 (H) 03/27/2024 ALKPHOS 134 (H) 05/01/2024 ALKPHOS 113 03/27/2024 PTH 250 (H) 05/01/2024 PTH 329 (H) 01/24/2024 PLT 359 05/10/2024 PLT 478 (H) 05/03/2024 MCV 89 05/10/2024 MCV 90 05/03/2024 [id number] 607 10/27/2023 [id number] 688 11/16/2022 VITD 21 (L) 10/27/2023 VITD 27 (L) 11/16/2022 FOLATE >24.0 10/27/2023 FOLATE 17.3 11/16/2022 HGBA1C 11.6 (H) 11/07/2023 Protein/calorie supplements: liqaucel on HD days protein powder at home (orgain)- recmd to restart Renal/other vitamins: cholecalciferol (Vitamin D3) - 2000 IU daily MULTIVITAMIN ORAL Herbal/OTC supplements: None reported CKD/MBD medications: sevelamer hydrochloride - 2 with meals - has been encouraging him to take 2 tums at HD Other Medications Relevant to Nutrition: atorvastatin - 40 mg patiromer calcium sorbitex - 8.4 gram sevelamer carbonate - 800 mg insulin aspart [...] adjusted for amps Weight/Volume status: fluid gains 1.9-3.9 UFR 7-12 Electrolytes: K- high - revd diet and provided info sheet to in past - again revd high k foods to limit thismonth Na -WNL Mg WNL Mineral Bone Disease: Ca WNL Phos high - on 2 tums at HD, reinforced renvela at meals , revd diet PTH WNL - no calcitriol Vitamin Status: B12 and folate WNL -currently on MV - will change to renal vitamin when he runs out D25 level low -on 2000 IU D3 [...] limit monthly - Encourage consistency with binders Cont liquacel at HD restart protein powder at home -reinforced high protein needs for wound healing Cont vitamin and D3 Revd high k foods to limit - info sheet given in March Shelley Eden RD, CD documented in this encounter Plan of Treatment Upcoming Encounters Date Type Department Care Team (Late st Contact Info) Description 12/06/2024 6:45 EST Treatment [facility] [place] [address] [place] [id number] Carlota Jin MD 1 [facility], Level [address] [place] [phone] 12/08/2024 6:45 EST Treatment [facility] [place] [address] [place] [id number] Carlota Jin MD 1 [facility], Level [address] [place] [phone] 12/11/2024 6:45 EST Treatment [facility] [place] [address] [place], [place] [address] Carlota Jin MD 1 [facility] 2 [place] [phone] 12/13/2024 6:45 EST Treatment [facility] [place] [address] [place], [place] [phone] Carlota Jin MD 1 [facility], [facility] 2 [place] [phone] 12/15/2024 6:45 EST Treatment [facility] [place] [address] [place], [place] [phone] Carlota Jin MD 1 [facility], [facility] 2 [place] [phone] 12/18/2024 6:45 EST Treatment [facility] [place] [address] [place] [address] Carlota Jin MD 1 [facility], [facility] 2 [place] [phone] 12/20/2024 6:45 EST Treatment [facility] [place] [address] [place], [place] [phone] Carlota Jin MD 1 [facility], [facility] 2 [place] [phone] 12/22/2024 6:45 EST Treatment [facility] [place] [address] [place], [place] [phone] Carlota Jin MD 1 [facility], [facility] 2 [place] [phone] 12/25/2024 6:45 EST Treatment [facility] [place] [address] [place], [place] [phone] Carlota Jin MD 1 [facility], [facility] 2 [place] [phone] 12/27/2024 6:45 EST Treatment [facility] [place] [address] [place], [place] [id number] Carlota Jin MD 1 [facility], [facility] 2 [place] [phone] 12/29/2024 6:45 EST Treatment [facility] [place] [address] [place], [place] [phone] Carlota Jin MD 1 [facility], [facility] 2 [place] [phone] 01/01/2025 6:45 EDT Treatment [facility] [place] [address] [place], [place] [phone] Carlota Jin MD 1 [facility], [facility] 2 [place] [phone] 01/03/2025 6:45 EDT Treatment [facility] [place] [address] [place], [place] [phone] Carlota Jin MD 1 [facility], [facility] 2 [place] [phone] 01/05/2025 6:45 EDT Treatment [facility] [place] [address] [place], [place] [address] Carlota Jin MD 1 [facility], [facility] 2 [place] [phone] 01/08/2025 6:45 EDT Treatment [facility] [place] [address] [place], [place] [phone] Carlota Jin MD 1 [facility], [facility] 2 [place] [phone] 01/10/2025 6:45 EDT Treatment [facility] [place] [address] [place] [address] Carlota Jin MD 1 [facility], [facility] 2 [place] [phone] 01/12/2025 6:45 EDT Treatment [facility] [address] [place] [address] Carlota Jin MD 1 [facility], [facility] 2 [place] [phone] 01/15/2025 6:45 EDT Treatment [facility] [place] [address] [place], [place] [phone] Carlota Jin MD 1 [facility], [facility] 2 [place] [phone] 01/17/2025 6:45 EDT Treatment [facility] [place] [address] [place], [place] [phone] Carlota Jin MD 1 [facility], [facility] 2 [place] [phone] 01/19/2025 6:45 EDT Treatment [facility] [place] [address] [place], [place] [phone] Carlota Jin MD 1 [facility], [facility] 2 [place] [phone] 01/22/2025 6:45 EDT Treatment [facility] [place] [address] [place] [address] Carlota Jin MD 1 [facility], [facility] 2 [place] [phone] 01/24/2025 6:45 EDT Treatment [facility] [place] [address] [place], [place] [phone] Carlota Jin MD 1 [facility], [facility] 2 [place] [phone] 01/26/2025 6:45 EDT Treatment [facility] [place] [address] [place], [place] [phone] Carlota Jin MD 1 [facility], [facility] 2 [place] [phone] 01/29/2025 6:45 EDT Treatment [facility] [place] [address] [place] [address] Carlota Jin MD 1 [facility], [facility] 2 [place] [phone] 01/31/2025 6:45 EDT Treatment [facility] [place] [address] [place], [place] [phone] Carlota Jin MD 1 [facility], [facility] 2 [place] [phone] 02/02/2025 6:45 EDT Treatment [facility] [place] [address] [place] [address] Carlota Jin MD 1 [facility], [address] [phone] 02/05/2025 6:45 EDT Treatment [facility] [place] [address] [place], [place] [phone] Carlota Jin MD 1 [facility], [address] [phone] 02/07/2025 6:45 EDT Treatment [facility] [place] [address] [place] [address] Carlota Jin MD 1 [facility], [facility] 2 [place] [phone] 02/09/2025 6:45 EDT Treatment [facility] [place] [address] [place], [place] [phone] Carlota Jin MD 1 [facility], [facility] 2 [place] [phone] 02/12/2025 6:45 EDT Treatment [facility] [place] [address] [place], [place] [phone] Carlota Jin MD 1 [facility], [address] [phone] 02/14/2025 6:45 EDT Treatment [facility] [place] [address] [place], [place] [phone] Carlota Jin MD [address] [place] [phone] 02/16/2025 6:45 EDT Treatment [facility] [place] [address] [place], [place] [address] Carlota Jin MD [address] [place] [phone] 02/19/2025 6:45 EDT Treatment [facility] [place] [address] [place], [place] [address] Carlota Jin MD [address] [place] [address], [place] [phone] 02/21/2025 6:45 EDT Treatment [facility] [address] [place], [place] [phone] Carlota Jin MD [address] [place] [address], [address] [phone] documented as of this encounter Visit Diagnoses Not on filedocumented in this encounter Care Teams Retail Sales Vitamin Consultant Relationship Specialty Start Date End Date Ken Greer MD [address] [facility] [place] [address] PCP - General 07/07/23 documented as of this encounter
--- OUTSIDE RECORDS SUMMARY | 2024-12-05 12:04 | XMS_ITS | Encounter Summary ---
Author Organization [facility] Address [address] [place] [address] Care Team Providers Care Surveyor Rod Helper Name Role Phone Ken Greer MD Primary Care Provider [phone] Kiel Powers Unavailable Unavailable Encounter Details Date Type Department Care Team (Late st Contact Info) Description 04/28/2024 Documentation Visit [facility] [address] [place], [place] [phone] Marcela Cox, RN Social History Tobacco Use [...] EST Treatment [facility] [place] [address] [place], [place] [phone] Carlota Jin MD [address] [place] [address], [facility] [place] [address] [place] [phone] 12/08/2024 6:45 EST Treatment [facility] [place] [address] [place], [place] [phone] Carlota Jin MD [address] [place] [address] 2 [place] [phone] 12/11/2024 6:45 EST Treatment [facility] [place] [address] [place] [phone] Carlota Jin MD [address] [place] [address] 2 [place] [phone] 12/13/2024 6:45 EST Treatment [facility] [address] [place], [place] [phone] Carlota Jin MD 1 [facility], [address] [place] [phone] 12/15/2024 6:45 EST Treatment [facility] [place] [address] [place], [place] [phone] aCrlota Jin MD 1 [facility], [facility] [place] [address] [place] [phone] 12/18/2024 6:45 EST Treatment [facility] [place] [address] [place], [place] [phone] Carlota iJn MD 1 [facility], [facility] [place] [address] [place] [phone] 12/20/2024 6:45 EST Treatment [facility] [place] [address] [place] [address] Carlota Jin MD 1 [facility], [facility] [place] [address] [place] [phone] 12/22/2024 6:45 EST Treatment [facility] [address] [place] [address] Carlota Jin MD 1 [facility], [facility] [place] [address] [place] [phone] 12/25/2024 6:45 EST Treatment [facility] [place] [address] [place], [place] [phone] Carlota Jin MD 1 [facility], [facility] [place] [address] [place] [phone] 12/27/2024 6:45 EST Treatment [facility] [place] [address] [place], [place] [phone] Carlota Jin MD 1 [facility], [facility] [place] [address] [place] [phone] 12/29/2024 6:45 EST Treatment [facility] [place] [address] [place], [place] [phone] Carlota Jin MD 1 [facility], [facility] [place] [address] [place] [phone] 01/01/2025 6:45 EDT Treatment [facility] [place] [address] [place], [place] [phone] Carlota Jin MD 1 [facility], [facility] [place] [address] [place] [phone] 01/03/2025 6:45 EDT Treatment [facility] [place] [address] [place], [place] [phone] Carlota Jin MD 1 [facility], [facility] [place] [address] [place] [phone] 01/05/2025 6:45 EDT Treatment [facility] [place] [address] [place], [place] [phone] Carlota Jin MD 1 [facility], [facility] [place] [address] [place] [phone] 01/08/2025 6:45 EDT Treatment [facility] [place] [address] [place], [place] [phone] Carlota Jin MD 1 [facility], [facility] [place] [address] [place] [phone] 01/10/2025 6:45 EDT Treatment [facility] [place] [address] [place], [place] [phone] Carlota Jin MD 1 [facility], [facility] [place] [address] [place] [phone] 01/12/2025 6:45 EDT Treatment [facility] [place] [address] [place], [place] [phone] Carlota Jin MD 1 [facility], [facility] [place] [address] [place] [phone] 01/15/2025 6:45 EDT Treatment [facility] [place] [address] [place] [address] Carlota Jin MD 1 [facility], [facility] [place] [address] [place] [phone] 01/17/2025 6:45 EDT Treatment [facility] [place] [address] [place] [address] Carlota Jin MD 1 [facility], [facility] [place] [address] [place] [phone] 01/19/2025 6:45 EDT Treatment [facility] [place] [address] [place], [place] [phone] Carlota Jin MD 1 [facility], [facility] [place] [address] [place] [phone] 01/22/2025 6:45 EDT Treatment [facility] [place] [address] [place], [place] [phone] Carlota Jin MD 1 [facility], [facility] [place] [address] [place] [phone] 01/24/2025 6:45 EDT Treatment [facility] [place] [address] [place], [place] [phone] Carlota Jin MD 1 [facility], [facility] [place] [address] [place] [phone] 01/26/2025 6:45 EDT Treatment [facility] [place] [address] [place], [place] [id number] Carlota Jin MD 1 [facility], [facility] [place] [address] [place] [phone] 01/29/2025 6:45 EDT Treatment [facility] [place] [address] [place], [place] [phone] Carlota Jin MD 1 [facility], [facility] [place] [address] [place] [phone] 01/31/2025 6:45 EDT Treatment [facility] [place] [address] [place], [place] [phone] Carlota Jin MD 1 [facility], [facility] [place] [address] [place] [phone] 02/02/2025 6:45 EDT Treatment [facility] [place] [address] [place], [place] [address] Carlota Jin MD 1 [facility], [facility] [place] [address] [place] [phone] 02/05/2025 6:45 EDT Treatment [facility] [place] [address] [place] [address] Carlota Jin MD 1 [facility], [facility] [place] [address] [place] [phone] 02/07/2025 6:45 EDT Treatment [facility] [place] [address] [place], [place] [phone] Carlota Jin MD 1 [facility], [address] [phone] 02/09/2025 6:45 EDT Treatment [facility] [place] [address] [place], [place] [phone] Carlota Jin MD 1 [facility], [address] [phone] 02/12/2025 6:45 EDT Treatment [facility] [place] [address] [place], [place] [phone] Carlota Jin MD 1 [facility], [facility] [place] [address] [place] [phone] 02/14/2025 6:45 EDT Treatment [facility] [place] [address] [place], [place] [phone] Carlota Jin MD 1 [facility], [facility] [place] [address] [place] [phone] 02/16/2025 6:45 EDT Treatment [facility] [place] [address] [place], [place] [phone] Carlota Jin MD 1 [facility], [address] [phone] 02/19/2025 6:45 EDT Treatment [facility] [place] [address] [place], [place] [phone] Carlota Jin MD [address] [place] [address], [address] [phone] 02/21/2025 6:45 EDT Treatment [facility] [address] [place], [place] [phone] Carlota Jin MD [address] [place] [phone] documented as of this encounter Visit Diagnoses Not on filedocumented in this encounter Additional Health Concerns Infection Onset Date Last Indicated Resolved Time R/O COVID-19 05/30/2024 05/30/2024 05/30/2024 20:5 0 EDT documented as of this encounter Care Teams Surveyor Rod Helper Relationship Specialty Start Date End Date Ken Greer MD [address] [place] [address] PCP - General 07/07/23 Kiel Powers Manager Planning Nephrology 05/31/24 documented as of this encounter
--- OUTSIDE RECORDS SUMMARY | 2024-12-05 12:04 | XMS_ITS | Encounter Summary ---
Author Organization [facility] Address [address] [place] [address] Care Team Providers Care Developer Programmer Name Role Phone Ken Greer MD Primary Care Provider [phone] Reason for Visit * Episode Based Medications (Routine) - New Request Specialty Diagnoses / Procedures Referred By Nader pena Referred To Contact Diagnoses ESRD (end stage renal disease) ([facility]) Carlota Jin MD [address] [place] [phone] Phone: tel: fax: [facility] [place] [address] [place] [address] Phone: tel: fax: Referral ID Status Reason Start Date Expiration Date V isits Requested Visits Authorized [id number] New Request 03/17/2024 1 1 Encounter Details Date Type Department Care Team (Latest Contact Info) Description 05/01/2024 6:45 EDT Treatment [facility] [place] [address] [place], [place] [phone] Carlota Jin MD [address] [place] [phone] ESRD (end stage renal disease) ([facility]) (Primary Dx); Secondary hyperparathyroidism ([facility]); Hypoalbuminemia; Anemia of chronic renal failure, unspecified CKD stage Social History Tobacco Use Types Packs/Day Years [...] - Temperature - - Respiratory Rate 16 05/01/2024 0628 EDT Oxygen Saturation - - Inhaled Oxygen Concentration - - Weight 81.9 kg (180 lb 8.9 oz) 05/01/2024 0631 E DT Height - - Body Mass Index 25.91 12/20/2023 2202 EST documented in this encounter [...] Flowsheet Note - Keila Vizcarra RN - 05/01/2024 1154 EDT 05/01/24 1048 Post-Hemodialysis Assessment Total Blood Processed (L) 90.79 Liters On Line Clearance: spKt/V 1.66 spKt/V Dialyzer Clearance Lightly streaked Treatment UFR (ml:kg:hr) 10.45 ml:kg:hr Final Critline Profile (%/hr) -0.9 Final Profile Profile A Critline refill Not done Fluid Removed (L) 3.5 L Post-Dialysis Scale Weight 94.9 kg (209 lb 3.5 oz) Wheelchair Weight 16.3 kg (35 lb 15 oz) Prosthesis Weight 0 kg (0 lb) Post-Treatment Weight (kg) 78.6 Treatment Weight Change (kg) 3.3 kg Day Target Weight (kg) 79.4 Post Sitting/Lying BP 170/75 Post Sitting/Lying pulse 69 Temp 36.8 ??C (98.2 ??F) Temp src Temporal Minutes Short -241 Post access assessment Bruit present: Yes Thrill Present AVF/AFG Hemostasis achieved Yes Note Patient held for 10mins with blue clamps Orientation Alert and Oriented x3 Yes Time Yes Place Yes Person Yes Cooperative Yes Disoriented No Discharge Ambulation Methods Departs via w/c Wrap up items Patient Response to Treatment Removed 3.5L. Original goal 3000mL, goal adjusted per crit line, vital signs, and pt tolerance. Comments No concerns voiced post treatment. * Addendum Note - Marcela Cox RN - 05/01/2024 0645 EDTAddended by: MARCELA COX on: 05/01/2024 14:20 Modules accepted: Orders documented in this encounter Plan of Treatment Upcoming Encounters Date Type Department Care Team (Late st Contact Info) Description 12/06/2024 6:45 EST Treatment [facility] [place] [address] [place] [address] Carlota Jin MD 1 [facility], [facility] [address] [place] [phone] 12/08/2024 6:45 EST Treatment [facility] [place] [address] [place] [address] Carlota Jin MD 1 [facility], [facility] [address] [place] [phone] 12/11/2024 6:45 EST Treatment [facility] [place] [address] [place] [address] Carlota Jin MD 1 [facility], [facility] [address] [place] [phone] 12/13/2024 6:45 EST Treatment [facility] [place] [address] [place] [address] Carlota Jin MD 1 [facility], [facility] [address] [place] [phone] 12/15/2024 6:45 EST Treatment [facility] [place] [address] [place], [place] [phone] Carlota Jin MD 1 [facility], [facility] [address] [place] [phone] 12/18/2024 6:45 EST Treatment [facility] [place] [address] [place], [place] [phone] Carlota Jin MD 1 [facility], [facility] [address] [place] [phone] 12/20/2024 6:45 EST Treatment [facility] [place] [address] [place], [place] [phone] Carlota Jin MD 1 [facility], [facility] [address] [place] [phone] 12/22/2024 6:45 EST Treatment [facility] [address] [place], [place] [phone] Carlota Jin MD 1 [facility], [facility] [address] [place] [phone] 12/25/2024 6:45 EST Treatment [facility] [address] [place], [place] [phone] Carlota Jin MD 1 [facility], [facility] [address] [place] [phone] 12/27/2024 6:45 EST Treatment [facility] [address] [place], [place] [phone] Carlota Jin MD 1 [facility], [facility] [address] [place] [phone] 12/29/2024 6:45 EST Treatment [facility] [address] [place], [place] [phone] Carlota Jin MD 1 [facility], [facility] [address] [place] [phone] 01/01/2025 6:45 EDT Treatment [facility] [address] [place], [place] [phone] Carlota Jin MD 1 [facility], [facility] [address] [place] [phone] 01/03/2025 6:45 EDT Treatment [facility] [place] [address] [place], [place] [phone] Carlota Jin MD 1 [facility], [facility] [address] [place] [phone] 01/05/2025 6:45 EDT Treatment [facility] [place] [address] [place], [place] [phone] Carlota Jin MD 1 [facility], [facility] [address] [place] [phone] 01/08/2025 6:45 EDT Treatment [facility] [place] [address] [place], [place] [phone] Carlota Jin MD 1 [facility], [facility] [address] [place] [phone] 01/10/2025 6:45 EDT Treatment [facility] [place] [address] [place], [place] [phone] Carlota Jin MD 1 [facility], [facility] [address] [place] [phone] 01/12/2025 6:45 EDT Treatment [facility] [place] [address] [place], [place] [phone] Carlota Jin MD 1 [facility], [facility] [address] [place] [phone] 01/15/2025 6:45 EDT Treatment [facility] [place] [address] [place], [place] [phone] Carlota Jin MD 1 [facility], [facility] [address] [place] [phone] 01/17/2025 6:45 EDT Treatment [facility] [place] [address] [place], [place] [phone] Carlota Jin MD 1 [facility], [facility] [address] [place] [phone] 01/19/2025 6:45 EDT Treatment [facility] [place] [address] [place], [place] [phone] Carlota Jin MD 1 [facility], [facility] [address] [place] [phone] 01/22/2025 6:45 EDT Treatment [facility] [place] [address] [place], [place] [phone] Carlota Jin MD 1 [facility], [facility] [address] [place] [phone] 01/24/2025 6:45 EDT Treatment [facility] [place] [address] [place], [place] [phone] Carlota Jin MD 1 [facility], [facility] [address] [place] [phone] 01/26/2025 6:45 EDT Treatment [facility] [place] [address] [place] [id number] Carlota Jin MD 1 [facility], [facility] [address] [place] [phone] 01/29/2025 6:45 EDT Treatment [facility] [place] [address] [place], [place] [phone] Carlota Jin MD 1 [facility], [facility] [address] [place] [phone] 01/31/2025 6:45 EDT Treatment [facility] [place] [address] [place], [place] [phone] Carlota Jin MD 1 [facility], [address] [phone] 02/02/2025 6:45 EDT Treatment [facility] [place] [address] [place], [place] [phone] Carlota Jin MD 1 [facility], [address] [phone] 02/05/2025 6:45 EDT Treatment [facility] [place] [address] [place], [place] [phone] Carlota Jin MD 1 [facility], [address] [phone] 02/07/2025 6:45 EDT Treatment [facility] [place] [address] [place], [place] [phone] Carlota Jin MD 1 [facility], [facility] [address] [place] [phone] 02/09/2025 6:45 EDT Treatment [facility] [place] [address] [place], [place] [phone] Carlota Jin MD 1 [facility], [facility] [address] [place] [phone] 02/12/2025 6:45 EDT Treatment [facility] [place] [address] [place], [place] [phone] Carlota Jin MD 1 [facility], [facility] [address] [place] [phone] 02/14/2025 6:45 EDT Treatment [facility] [place] [address] [place] [address] Carlota Jin MD 1 [facility], [facility] [address] [place] [phone] 02/16/2025 6:45 EDT Treatment [facility] [place] [address] [place], [place] [phone] Carlota Jin MD 1 [facility], [facility] [address] [place] [phone] 02/19/2025 6:45 EDT Treatment [facility] [place] [address] [place], [place] [phone] Carlota Jin MD 1 [facility], [facility] [address] [place] [phone] 02/21/2025 6:45 EDT Treatment [facility] [place] [address] [place] [address] Carlota Jin MD 1 [facility], Level [address] [place] [phone] documented as of this encounter Procedures Procedure Name Priority Date/Time Associated Diagnosis Comments POSTDIALYSIS BUN WITH URR CALCULATION Routine 05/01/2024 10:30 EDT TRANSFERRIN SATURATION Routine 05/01/2024 6:31 EDT ESRD (end stage renal disease) ([facility]) DIALYSIS ROUTINE - DIALYSIS ONLY (BUN, K, NA, CL, CO2, SANJEEV, ALB, MG, PHOS, ALKP, AST) Routine 05/01/2024 6:31 EDT ESRD (end stage renal disease) ([facility]) PROFILE IRON STUDIES (INCLUDES IRON, IBC, AND FERRITIN) Routine 05/01/2024 6:31 EDT ESRD (end stage renal disease) ([facility]) HEPATITIS C AB W REFLEX TO HCV RNA BY PCR Routine 05/01/2024 6:31 EDT ESRD (end stage renal disease) ([facility]) PTH INTACT Routine 05/01/2024 6:31 EDT ESRD (end stage renal disease) ([facility]) Secondary hyperparathyroidism ([facility]) COMPLETE BLOOD COUNT Routine 05/01/2024 6:31 EDT ESRD (end stage renal disease) ([facility]) FERRITIN Routine 05/01/2024 6:31 EDT ESRD (end stage renal disease) ([facility]) HEMODIALYSIS Routine 05/01/2024 6:28 EDT ESRD (end stage renal disease) ([facility]) documented in this encounter Results * (ABNORMAL) POSTDIALYSIS BUN WITH URR CALCULATION (05/01/2024 10:30 EDT) Pathologist [facility] BUN, Postdialysis 17 10 - 26 mg/dL 05/01/2024 22:04 EDT [facility] Urea Reduction Rate 71.2 Not Established % 05/01/2024 22:04 EDT [facility] Comment: NOTE: Reference range not established for Urea Reduction Rate. BUN 59(H) 10 - 26 mg/dL 05/01/2024 22:04 EDT [facility] Blood VENOUS BLOOD / Unknown Venipuncture / Unknown 05/01/2024 10:30 EDT 05/01/2024 14:20 EDT Carlota Jin MD CHEMISTRY & BLOOD GAS ORD ERABLES Final Result Performing Organization Address [facility]/ZIP Co de Phone Number [facility] [address] [place] [address] * (ABNORMAL) FERRITIN (05/01/2024 6:31 EDT) [facility] Ferritin 805(H) 22 - 322 ng/mL 05/02/2024 9:10 EDT [facility] Blood VENOUS BLOOD / Unknown Venipuncture / Unknown 05/01/2024 6:31 EDT 05/01/2024 6:32 EDT us Skye Gomez NP CHEMISTRY & BLOOD GAS ORDER FRANSISCO Final Result Performing Organization Address [facility]/ZIP Co de Phone Number [facility] [address] [place] [address] * (ABNORMAL) TRANSFERRIN SATURATION (05/01/2024 6:31 EDT) [facility] Iron 30(L) 49 - 181 ??g/dL 05/01/2024 22:12 EDT [facility] Iron Binding Capacity 173(L) 240 - 450 ??g/dL 05/01/2024 22:12 EDT [facility] Transferrin Saturation 17 15 - 45 % 05/01/2024 22:12 EDT [facility] Blood VENOUS BLOOD / Unknown Venipuncture / Unknown 05/01/2024 6:31 EDT 05/01/2024 6:32 EDT Skye Gomez BULK PLANT SUPERVISOR CHEMISTRY & BLOOD GAS ORDER FRANSISCO Final Result Performing Organization Address [facility]/ZIP Co de Phone Number [facility] [address] [place] [address] * HEPATITIS C AB W REFLEX TO HCV RNA BY PCR (05/01/2024 6:31 EDT) Hep C Antibody Negative Negative 05/02/2024 10:39 EDT [facility] Blood VENOUS BLOOD / Unknown Venipuncture / Unknown 05/01/2024 6:31 EDT 05/01/2024 6:32 EDT Skye Gomez BULK PLANT SUPERVISOR CHEMISTRY & BLOOD GAS ORDER FRANSISCO Final Result Performing Organization Address [facility] Co de Phone Number [facility] [address] [place] [address] * (ABNORMAL) PTH INTACT (05/01/2024 6:31 EDT) Pathologist [facility] Intact PTH 250(H) 19 - 88 pg/mL 05/02/2024 9:13 EDT [facility] Blood VENOUS BLOOD / Unknown Venipuncture / Unknown 05/01/2024 6:31 EDT 05/01/2024 6:32 EDT Skye Gomez B[employer]K PLANT SUPERVISOR CHEMISTRY & BLOOD GAS ORDER FRANSISCO Final Result Performing Organization Address [facility] Co de Phone Number [facility] [address] [place], [place] [id number] * (ABNORMAL) DIALYSIS ROUTINE - DIALYSIS ONLY (BUN, K, NA, CL, CO2, SANJEEV, ALB, MG, PHOS, ALKP, AST) (05/01/2024 6:31 EDT) Sodium 137 136 - 145 mmol/L 05/01/2024 22:03 [facility] Potassium 7.1(H) 3.5 - 5.0 mmol/L 05/01/2024 22:03 [facility] Chloride 100 96 - 110 mmol/L 05/01/2024 22:03 [facility] CO2 Total 23 22 - 32 mmol/L 05/01/2024 22:03 [facility] Calcium 9.1 8.5 - 10.5 mg/dL 05/01/2024 22:03 [facility] Albumin 3.0(L) 3.4 - 4.9 g/dL 05/01/2024 22:03 [facility] Phosphorus 8.3(H) 2.5 - 4.5 mg/dL 05/01/2024 22:03 [facility] Calcium Phos Product 75.5 See Note mg/dL 05/01/2024 22:03 [facility] Comment: NOTE: Reference range not established BUN, Predialysis 59(H) 10 - 26 mg/dL 05/01/2024 22:03 [facility] AST 16 15 - 46 U/L 05/01/2024 22:03 [facility] Alkaline Phosphatase 134(H) 38 - 126 U/L 05/01/2024 22:03 [facility] Magnesium 2.5 1.7 - 2.8 mg/dL 05/01/2024 22:03 [facility] Anion Gap 14 5 - 14 mmol/L 05/01/2024 22:03 [facility] Calculated Calcium 9.9 8.9 - 10.5 mg/dL 05/01/2024 22:03 [facility] Blood VENOUS BLOOD / Unknown Venipuncture / Unknown 05/01/2024 6:31 EDT 05/01/2024 6:32 EDT Skye Gomez NP CHEMISTRY & BLOOD GAS ORDER FRANSISCO Final Result [facility] [address] [place] [address] * (ABNORMAL) COMPLETE BLOOD COUNT (05/01/2024 6:31 EDT) WBC 10.60(H) 4.00 - 10.40 K/cmm 05/01/2024 22:01 [facility] RBC 2.88(L) 4.36 - 5.78 M/cmm 05/01/2024 22:01 [facility] Hemoglobin 7.9(L) 13.8 - 17.3 g/dL 05/01/2024 22:01 [facility] HCT 26.1(L) 39.5 - 50.2 % 05/01/2024 22:01 [facility] MCV 91 81 - 95 fL 05/01/2024 22:01 [facility] MCH 27.4(L) 27.6 - 33.0 pg 05/01/2024 22:01 [facility] MCHC 30.3(L) 32.8 - 36.4 g/dL 05/01/2024 22:01 [facility] RDW-CV 17.3(H) <14.2 % 05/01/2024 22:01 [facility] RDW-SD 57.0(H) <46.0 fl 05/01/2024 22:01 [facility] PLT 528(H) 141 - 377 K/cmm 05/01/2024 22:01 [facility] MPV 11.7 9.5 - 12.7 fL 05/01/2024 22:01 [facility] Blood VENOUS BLOOD / Unknown Venipuncture / Unknown 05/01/2024 6:31 EDT 05/01/2024 6:32 EDT Skye Gomez B[employer]K [employer]ANT SUPERVISOR HEMATOLOGY & PF4 ORDERABLES Final Result [facility] [address] [place] [address] documented in this encounter Visit Diagnoses Diagnosis ESRD (end stage renal disease) ([facility])- Primary End stage renal disease Secondary hyperparathyroidism ([facility]) Secondary hyperparathyroidism (of renal origin) Hypoalbuminemia Other disorders of plasma protein metabolism Anemia of chronic renal failure, unspecified CKD stage documented in this encounter Administered Medications Inactive Administered Medications - up to 3 most recent administrations Medication Order MAR Action Action Date Dose Rate Site calcium carbonate (TUMS) tablet 500 mg (200 mg elemental calcium) 2 Tablet 2 Tablet, oral, ONCE IN DIALYSIS, 1 dose, On Wed05/01/24 at 0645, Routine, DialysisIndications:ESRD (end stage renal disease) ([facility]),Secondary hyperparathyroidism ([facility]) Given 05/01/2024 6:56 EDT 2 Tablets epoetin ken (EPOGEN) 20,000 unit/2 mL injection 8,000 Units 8,000 Units, intravenous, ONCE IN DIALYSIS, 1 dose, On Wed05/01/24 at 0700, Routine, DialysisIndications:ESRD (end stage renal disease) ([facility]),Anemia of chronic renal failure, unspecified CKD stage Given 05/01/2024 6:55 EDT 8,000 Units heparin injection 7,000 Units 7,000 Units, intravenous, ONCE IN DIALYSIS, 1 dose, On Wed05/01/24 at 0645, Routine, Dialysis, Now x1 bolus 3400 units to be given at the beginning of dialysis 900 units/hour to be given over the course of dialysis (7000 units total). Stop 1 hour prior to end of treatment. To be administered per Policy [id number].Indications:ESRD (end stage renal disease) ([facility]) Given 05/01/2024 6:56 EDT 7,000 Units LiquaCel liquid protein liquid 30 mL 30 mL, oral, ONCE IN DIALYSIS, 1 dose, On Wed05/01/24 at 0645, Patient's flavor preference: either, RoutineIndications:ESRD (end stage renal disease) ([facility]),Hypoalbuminemia Given 05/01/2024 6:56 EDT 30 mL documented in this encounter Orders Dialysis Count Last Ordered Date First Orde red Date HEMODIALYSIS 1 05/01/2024 documented in this encounter Care Teams Developer Programmer Relationship Specialty Start Date End Date Ken Greer MD [address] [place] [address] PCP - General 07/07/23 documented as of this encounter
--- OUTSIDE RECORDS SUMMARY | 2024-12-05 12:04 | XMS_ITS | Encounter Summary ---
Author Organization [facility] Address [address] [place] [address] Care Team Providers Care Pinked Edge Sewing Machine Operator Name Role Phone Ken Greer MD Primary Care Provider [phone] Reason for Visit * Episode Based Medications (Routine) - New Request Specialty Diagnoses / Procedures Referred By Nader pena Referred To Contact Diagnoses ESRD (end stage renal disease) ([facility]) Carlota Jin MD [address] [place] [phone] Phone: tel: fax: [facility] [address] [place] [address] Phone: tel: fax: Referral ID Status Reason Start Date Expiration Date V isits Requested Visits Authorized [id number] New Request 03/17/2024 1 1 Encounter Details Date Type Department Care Team (Latest Contact Info) Description 05/12/2024 6:45 EDT Treatment [facility] [address] [place], [place] [phone] Carlota Jin MD [address] [place] [phone] ESRD (end stage renal disease) ([facility]) (Primary Dx); Anemia of chronic renal failure, unspecified CKD stage; Hypoalbuminemia; Secondary hyperparathyroidism ([facility]) Social History Tobacco Use Types Packs/Day [...] - Temperature - - Respiratory Rate 16 05/12/2024 1114 EDT Oxygen Saturation - - Inhaled Oxygen Concentration - - Weight 79.8 kg (175 lb 14.8 oz) 05/12/2024 1114 EDT Height - - Body Mass Index 25.24 12/20/2023 2202 EST documented in this encounter [...] Flowsheet Note - Marcela Cox RN - 05/12/2024 1152 EDT 05/12/24 1038 Post-Hemodialysis Assessment Dialyzer Clearance Lightly streaked Post-Dialysis Scale Weight 95.8 kg (211 lb 3.2 oz) Wheelchair Weight 18.5 kg (40 lb 12.6 oz) Prosthesis Weight 0 kg (0 lb) Post-Treatment Weight (kg) 77.3 Post Sitting/Lying BP (!) 200/93 Post Sitting/Lying pulse 79 Temp 36.7 ??C (98.1 ??F) Minutes Short -241 Post access assessment Bruit present: Yes Thrill Present AVF/AFG Hemostasis achieved Yes Note 10 min hold Discharge Ambulation Methods Departs via w/c Wrap up items Patient Response to Treatment Tolerated tx well. Removed 2.5L UF goal without difficulty. Comments No issues during tx, no concerns voiced post tx. documented in this encounter Plan of Treatment Upcoming Encounters Date Type Department Care Team (Late st Contact Info) Description 12/06/2024 6:45 EST Treatment [facility] [address] [place], [place] [phone] Carlota Jin MD [address] [phone] 12/08/2024 6:45 EST Treatment [facility] [address] [place], [place] [phone] Carlota Jin MD [address] [phone] 12/11/2024 6:45 EST Treatment [facility] [address] [place], [place] [phone] Carlota Jin MD 1 [address] [place] [phone] 12/13/2024 6:45 EST Treatment [facility] [address] [place], [place] [phone] Carlota Jin MD 1 [facility] [address] [place] [phone] 12/15/2024 6:45 EST Treatment [facility] [address] [place], [place] [phone] Carlota Jin MD 1 [facility] [address] [place] [phone] 12/18/2024 6:45 EST Treatment [facility] [address] [place], [place] [phone] Carlota Jin MD 1 [facility], [facility] [address] [place] [phone] 12/20/2024 6:45 EST [facility] [address] [place], [place] [phone] Carlota Jin MD 1 [facility] [address] [place] [phone] 12/22/2024 6:45 EST Treatment [facility] [address] [place], [place] [phone] Carlota Jin MD 1 [facility] [address] [place] [phone] 12/25/2024 6:45 EST Treatment [facility] [address] [place], [place] [phone] Carlota Jin MD 1 [facility], [facility] [address] [place] [phone] 12/27/2024 6:45 EST Treatment [facility] [address] [place], [place] [phone] Carlota Jin MD 1 [facility], [facility] [address] [place] [phone] 12/29/2024 6:45 EST Treatment [facility] [address] [place], [place] [phone] Carlota Jin MD 1 [facility], [facility] [address] [place] [phone] 01/01/2025 6:45 EDT Treatment [facility] [address] [place], [place] [phone] Carlota Jin MD 1 [facility], [facility] [address] [place] [phone] 01/03/2025 6:45 EDT Treatment [facility] [address] [place], [place] [phone] Carlota Jin MD 1 [facility], [facility] [address] [place] [phone] 01/05/2025 6:45 EDT Treatment [facility] [address] [place], [place] [phone] Carlota Jin MD 1 [facility], [facility] [address] [place] [phone] 01/08/2025 6:45 EDT Treatment [facility] [address] [place], [place] [phone] Carlota Jin MD 1 [facility], [facility] [address] [place] [phone] 01/10/2025 6:45 EDT Treatment [facility] [place] [address] [place], [place] [phone] Carlota Jin MD 1 [facility], [facility] [address] [place] [phone] 01/12/2025 6:45 EDT Treatment [facility] [address] [place], [place] [phone] Carlota Jin MD 1 [facility], [facility] [address] [place] [phone] 01/15/2025 6:45 EDT Treatment [facility] [address] [place], [place] [phone] Carlota Jin MD 1 [facility], [facility] [address] [place] [phone] 01/17/2025 6:45 EDT Treatment [facility] [address] [place], [place] [phone] Carlota Jin MD 1 [facility], [facility] [address] [place] [phone] 01/19/2025 6:45 EDT Treatment [facility] [address] [place], [place] [phone] Carlota Jin MD 1 [facility], [facility] [address] [place] [phone] 01/22/2025 6:45 EDT Treatment [facility] [address] [place], [place] [phone] Carlota Jin MD 1 [facility], [facility] [address] [place] [phone] 01/24/2025 6:45 EDT Treatment [facility] [place] [address] [place], [place] [phone] Carlota Jin MD 1 [facility], [address] [phone] 01/26/2025 6:45 EDT Treatment [facility] [place] [address] [place], [place] [phone] Carloat Jin MD 1 [facility], [facility] [address] [place] [phone] 01/29/2025 6:45 EDT Treatment [facility] [address] [place], [place] [phone] Carlota Jin MD 1 [facility], [facility] [address] [place] [phone] 01/31/2025 6:45 EDT Treatment [facility] [address] [place], [place] [phone] Carlota Jin MD 1 [facility], [facility] [address] [place] [phone] 02/02/2025 6:45 EDT Treatment [facility] [address] [place], [place] [phone] Carlota Jin MD 1 [facility], [facility] [address] [place] [phone] 02/05/2025 6:45 EDT Treatment [facility] [place] [address] [place], [place] [phone] Carlota Jin MD 1 [facility], [facility] [address] [place] [phone] 02/07/2025 6:45 EDT Treatment [facility] [place] [address] [place] [address] Carlota Jin MD 1 [facility], [facility] [address] [place] [phone] 02/09/2025 6:45 EDT Treatment [facility] [address] [place] [address] Carlota Jin MD 1 [facility], [facility] [address] [place] [phone] 02/12/2025 6:45 EDT Treatment [facility] [address] [place], [place] [phone] Carlota Jin MD 1 [facility], [facility] [address] [place] [phone] 02/14/2025 6:45 EDT Treatment [facility] [address] [place], [place] [phone] Carlota Jin MD [address] [phone] 02/16/2025 6:45 EDT Treatment [facility] [address] [place] [phone] Carlota Jin MD [address] [place] [phone] 02/19/2025 6:45 EDT Treatment [facility] [address] [place], [place] [phone] Carlota Jin MD [address] [place] [phone] 02/21/2025 6:45 EDT [facility] [address] [place] [phone] Carlota Jin MD [address] [place] [phone] documented as of this encounter Procedures Procedure Name Priority Date/Time Associated Diagnosis Comments HEMODIALYSIS Routine 05/12/2024 11:14 EDT ESRD (end stage renal disease) ([facility]) documented in this encounter Visit Diagnoses Diagnosis ESRD (end stage renal disease) ([facility])- Primary End stage renal disease Anemia of chronic renal failure, unspecified CKD stage Hypoalbuminemia Other disorders of plasma protein metabolism Secondary hyperparathyroidism ([facility]) Secondary hyperparathyroidism (of renal origin) documented in this encounter Administered Medications Inactive Administered Medications - up to 3 most recent administrations Medication Order MAR Action Action Date Dose Rate Site calcium carbonate (TUMS) tablet 500 mg (200 mg elemental calcium) 2 Tablet 2 Tablet, oral, ONCE IN DIALYSIS, 1 dose, On Wed05/12/24 at 1130, Routine, DialysisIndications:ESRD (end stage renal disease) ([facility]),Secondary hyperparathyroidism ([facility]) Given 05/12/2024 11:21 EDT 2 Tablets epoetin ken (EPOGEN) 20,000 unit/2 mL injection 10,000 Units 10,000 Units, intravenous, ONCE IN DIALYSIS, 1 dose, On Wed05/12/24 at 1130, Routine, DialysisIndications:ESRD (end stage renal disease) ([facility]),Anemia of chronic renal failure, unspecified CKD stage Given 05/12/2024 6:43 EDT 10,000 Units heparin injection 7,000 Units 7,000 Units, intravenous, ONCE IN DIALYSIS, 1 dose, On Wed05/12/24 at 1130, Routine, Dialysis, Now x1 bolus 3400 units to be given at the beginning of dialysis 900 units/hour to be given over the course of dialysis (7000 units total). Stop 1 hour prior to end of treatment. To be administered per Policy [id number].Indications:ESRD (end stage renal disease) ([facility]) Given 05/12/2024 6:37 EDT 7,000 Units documented in this encounter Orders Medications Ordered That Davide ht Not Have Been Administered Count Last Ordered Date First Ordered Date LiquaCel liquid protein liquid 30 mL 04/24 Dialysis Count Last Ordered Date First Orde red Date HEMODIALYSIS 05/12/2024 documented in this encounter Care Teams Pinked Edge Sewing Machine Operator Relationship Specialty Start Date End Date Ken Greer MD [address] [place] [address] PCP - General 07/07/23 documented as of this encounter
--- OUTSIDE RECORDS SUMMARY | 2024-12-05 12:04 | XMS_ITS | Encounter Summary ---
Author Organization [facility] Address [address] [place] [address] Care Team Providers Care Adjuster And Inspector Name Role Phone Ken Greer MD Primary Care Provider [phone] Reason for Visit * Episode Based Medications (Routine) - New Request Specialty Diagnoses / Procedures Referred By Nader pena Referred To Contact Diagnoses ESRD (end stage renal disease) ([facility]) Carlota Jin MD [address] [place] [phone] Phone: tel: fax: [facility] [place] [address] [place] [address] Phone: tel: fax: Referral ID Status Reason Start Date Expiration Date V isits Requested Visits Authorized [id number] New Request 03/17/2024 1 1 Encounter Details Date Type Department Care Team (Latest Contact Info) Description 05/08/2024 6:45 EDT Treatment [facility] [address] [place], [place] [phone] Carlota Jin MD [address] [place] [phone] ESRD (end stage renal disease) ([facility]) (Primary Dx); Anemia of chronic renal failure, unspecified CKD stage; Hypoalbuminemia; Secondary hyperparathyroidism ([facility]) Social History Tobacco Use Types Packs/Day [...] - Temperature - - Respiratory Rate 16 05/08/2024 0620 EDT Oxygen Saturation - - Inhaled Oxygen Concentration - - Weight 82.1 kg (181 lb) 05/08/2024 0628 EDT Height - - Body Mass Index 25.97 12/20/2023 2202 EST documented in this encounter [...] Flowsheet Note - Keila Vizcarra RN - 05/08/2024 1147 EDT 05/08/24 1042 Post-Hemodialysis Assessment Total Blood Processed (L) 90.62 Liters On Line Clearance: spKt/V 1.73 spKt/V Dialyzer Clearance Lightly streaked Treatment UFR (ml:kg:hr) 12.42 ml:kg:hr Fluid Removed (L) 4.1 L Post-Dialysis Scale Weight 94.9 kg (209 lb 3.5 oz) Wheelchair Weight 16.7 kg (36 lb 13.1 oz) Prosthesis Weight 0 kg (0 lb) Post-Treatment Weight (kg) 78.2 Treatment Weight Change (kg) 3.9 kg Day Target Weight (kg) 78.5 Post Sitting/Lying BP 165/80 Post Sitting/Lying pulse 64 Temp 35.7 ??C (96.3 ??F) Temp src Temporal Minutes Short -241 Post access assessment AVF/AFG Hemostasis achieved Yes Note 10 minute hold both sites Orientation Alert and Oriented x3 Yes Time Yes Place Yes Person Yes Cooperative Yes Disoriented No Discharge Ambulation Methods Departs via w/c Wrap up items Patient Response to Treatment Tolerated treatment well. Removed 4100mL UF goal without difficulty. Comments No issues during treatment. No concerns voiced post treatment. * Dialysis Rounding - Carlota Jin MD - 05/08/2024 0645 EDT Dialysis Provider's Routine Assessment Gerson Bruner was seen and examined as appropriate during Dialysis. Pertinent lab results were reviewed. Changes since last visit: None Changes to current prescriptions/orders: None No acute issues Carlota Jin MD documented in this encounter Plan of Treatment Upcoming Encounters Date Type Department Care Team (Late st Contact Info) Description 12/06/2024 6:45 EST Treatment [facility] [place] [address] [place] [address] Carlota Jin MD 1 [facility], [facility] 2 [place] [phone] 12/08/2024 6:45 EST Treatment [facility] [place] [address] [place] [address] Carlota Jin MD 1 [facility], [facility] 2 [place] [phone] 12/11/2024 6:45 EST Treatment [facility] [place] [address] [place] [address] Carlota Jin MD 1 [facility], [facility] 2 [place] [phone] 12/13/2024 6:45 EST Treatment [facility] [place] [address] [place] [address] Carlota Jin MD 1 [facility], [facility] 2 [place] [phone] 12/15/2024 6:45 EST Treatment [facility] [place] [address] [place], [place] [phone] Carlota Jin MD 1 [facility], [facility] 2 [place] [phone] 12/18/2024 6:45 EST Treatment [facility] - [place] [address] [place], [place] [phone] Carlota Jin MD 1 [facility], [facility] 2 [place] [phone] 12/20/2024 6:45 EST Treatment [facility] [place] [address] [place], [place] [phone] Carlota Jin MD 1 [facility], [facility] 2 [place] [phone] 12/22/2024 6:45 EST Treatment [facility] [address] [place], [place] [phone] Carlota Jin MD 1 [facility], [facility] 2 [place] [phone] 12/25/2024 6:45 EST Treatment [facility] [address] [place], [place] [phone] Carlota Jin MD 1 [facility], [facility] 2 [place] [phone] 12/27/2024 6:45 EST Treatment [facility] [address] [place], [place] [phone] Carlota Jin MD 1 [facility], [facility] 2 [place] [phone] 12/29/2024 6:45 EST Treatment [facility] [address] [place], [place] [phone] Carlota Jin MD 1 [facility], [facility] 2 [place] [phone] 01/01/2025 6:45 EDT Treatment [facility] [address] [place], [place] [phone] Carlota Jin MD 1 [facility], [facility] 2 [place] [phone] 01/03/2025 6:45 EDT Treatment [facility] [place] [address] [place], [place] [phone] Carlota Jin MD 1 [facility], [facility] 2 [place] [phone] 01/05/2025 6:45 EDT Treatment [facility] [place] [address] [place], [place] [phone] Carlota Jin MD 1 [facility], [facility] 2 [place] [phone] 01/08/2025 6:45 EDT Treatment [facility] [place] [address] [place], [place] [phone] Carlota Jin MD 1 [facility], [facility] 2 [place] [phone] 01/10/2025 6:45 EDT Treatment [facility] - [place] [address] [place], [place] [phone] Carlota Jin MD 1 [facility], [facility] 2 [place] [phone] 01/12/2025 6:45 EDT Treatment [facility] - [place] [address] [place], [place] [phone] Carlota Jni MD 1 [facility], [facility] 2 [place] [phone] 01/15/2025 6:45 EDT Treatment [facility] - [place] [address] [place], [place] [phone] Carlota Jin MD 1 [facility], [facility] 2 [place] [phone] 01/17/2025 6:45 EDT Treatment [facility] [place] [address] [place], [place] [phone] Carlota Jin MD 1 [facility], [facility] 2 [place] [phone] 01/19/2025 6:45 EDT Treatment [facility] - [place] [address] [place], [place] [phone] Carlota Jin MD 1 [facility], [facility] 2 [place] [phone] 01/22/2025 6:45 EDT Treatment [facility] [place] [address] [place], [place] [address] Carlota Jin MD 1 [facility], [facility] 2 [place] [phone] 01/24/2025 6:45 EDT Treatment [facility] [place] [address] [place], [place] [phone] Carlota Jin MD 1 [facility], [facility] 2 [place] [phone] 01/26/2025 6:45 EDT Treatment [facility] [place] [address] [place] [id number] Carlota Jin MD 1 [facility], [facility] 2 [place] [phone] 01/29/2025 6:45 EDT Treatment [facility] - [place] [address] [place], [place] [phone] Carlota Jin MD 1 [facility], [facility] 2 [place] [phone] 01/31/2025 6:45 EDT Treatment [facility] [place] [address] [place], [place] [phone] Carlota Jin MD 1 [facility], [address] [phone] 02/02/2025 6:45 EDT Treatment [facility] - [place] [address] [place], [place] [phone] Carlota Jin MD 1 [facility], [address] [phone] 02/05/2025 6:45 EDT Treatment [facility] - [place] [address] [place], [place] [phone] Carlota Jin MD 1 [facility], [address] [phone] 02/07/2025 6:45 EDT Treatment [facility] - [place] [address] [place], [place] [phone] Carloat Jin MD 1 [facility], [facility] 2 [place] [phone] 02/09/2025 6:45 EDT Treatment [facility] [place] [address] [place], [place] [phone] Carlota Jin MD 1 [facility], [facility] 2 [place] [phone] 02/12/2025 6:45 EDT Treatment [facility] [place] [address] [place], [place] [phone] Carlota Jin MD 1 [facility], [facility] 2 [place] [phone] 02/14/2025 6:45 EDT Treatment [facility] - [place] [address] [place] [address] Carlota Jin MD 1 [facility], [facility] 2 [place] [phone] 02/16/2025 6:45 EDT Treatment [facility] - [place] [address] [place], [place] [phone] Carlota Jin MD 1 [facility], [facility] 2 [place] [phone] 02/19/2025 6:45 EDT Treatment [facility] - [place] [address] [place], [place] [phone] Carlota Jin MD 1 [facility], [facility] 2 [place] [phone] 02/21/2025 6:45 EDT Treatment [facility] - [place] [address] [place] [address] Carlota Jin MD 1 [facility], Level [address] [place] [phone] documented as of this encounter Procedures Procedure Name Priority Date/Time Associated Diagnosis Comments HEMODIALYSIS Routine 05/08/2024 6:21 EDT ESRD (end stage renal disease) ([facility]) documented in this encounter Visit Diagnoses Diagnosis ESRD (end stage renal disease) ([facility])- Primary End stage renal disease Anemia of chronic renal failure, unspecified CKD stage Hypoalbuminemia Other disorders of plasma protein metabolism Secondary hyperparathyroidism ([facility]) Secondary hyperparathyroidism (of renal origin) documented in this encounter Administered Medications Inactive Administered Medications - up to 3 most recent administrations Medication Order MAR Action Action Date Dose Rate Site calcium carbonate (TUMS) tablet 500 mg (200 mg elemental calcium) 2 Tablet 2 Tablet, oral, ONCE IN DIALYSIS, 1 dose, On Wed05/08/24 at 0645, Routine, DialysisIndications:ESRD (end stage renal disease) ([facility]),Secondary hyperparathyroidism ([facility]) Given 05/08/2024 6:49 EDT 2 Tablets epoetin ken (EPOGEN) 20,000 unit/2 mL injection 10,000 Units 10,000 Units, intravenous, ONCE IN DIALYSIS, 1 dose, On Wed05/08/24 at 0645, Routine, DialysisIndications:ESRD (end stage renal disease) ([facility]),Anemia of chronic renal failure, unspecified CKD stage Given 05/08/2024 6:48 EDT 10,000 Units heparin injection 7,000 Units 7,000 Units, intravenous, ONCE IN DIALYSIS, 1 dose, On Wed05/08/24 at 0645, Routine, Dialysis, Now x1 bolus 3400 units to be given at the beginning of dialysis 900 units/hour to be given over the course of dialysis (7000 units total). Stop 1 hour prior to end of treatment. To be administered per Policy [id number].Indications:ESRD (end stage renal disease) ([facility]) Given 05/08/2024 6:48 EDT 7,000 Units LiquaCel liquid protein liquid 30 mL 30 mL, oral, ONCE IN DIALYSIS, 1 dose, On 05/08/24 at 0645, Patient's flavor preference: either, RoutineIndications:ESRD (end stage renal disease) ([facility]),Hypoalbuminemia Given 05/08/2024 6:49 EDT 30 mL documented in this encounter Orders Dialysis Count Last Ordered Date First Orde red Date HEMODIALYSIS 1 05/08/2024 documented in this encounter Care Teams Adjuster And Inspector Relationship Specialty Start Date End Date Ken Greer MD [address] [place] [address] PCP - General 07/07/23 documented as of this encounter
--- OUTSIDE RECORDS SUMMARY | 2024-12-05 12:04 | XMS_ITS | Encounter Summary ---
Author Organization [facility] Address [address] [place] [address] Care Team Providers Care Bookkeeping Machine Mechanic Name Role Phone Ken Greer MD Primary Care Provider [phone] Encounter Details Date Type Department Care Team (Late st Contact Info) Description 05/01/2024 Documentation Visit [address] [place], [place] [address] Marcela Cox, VIDYA Social History Tobacco Use Types Packs/Day [...] Progress Notes * Marcela Cox RN - 05/01/2024 0600 EDT 05/01/24 7:03 [facility] DIALYSIS MEDICATION RECONCILIATION Medication review of home medications (prescriptions, chsy-waj-ihbxfbb, herbals, vitamin/mineral/dietary (nutritional) supplements, medical marijuana, and [...] release tablet pantoprazole (PROTONIX) 40 mg tablet patiromer calcium sorbitex (VELTASSA) 8.4 gram packet polyethylene glycol 3350 (MIRALAX) 17 gram packet pregabalin (LYRICA) 100 mg capsule senna-docusate (SENNA PLUS) 8.6-50 mg per tablet sevelamer hydrochloride (RENAGEL) 800 mg tablet sildenafiL (REVATIO) 20 mg tablet tiZANidine (ZANAFLEX) 4 mg tablet No current facility-administered medications for this visit. Marcela Cox RN documented in this encounter Plan of Treatment Upcoming Encounters Date Type Department Care Team (Late st Contact Info) Description 12/06/2024 6:45 EST Treatment [facility] [address] [place], [place] [phone] Carlota Jin MD [address] [phone] 12/08/2024 6:45 EST Treatment [facility] [address] [place], [place] [phone] Carlota Jin MD [address] [phone] 12/11/2024 6:45 EST Treatment [facility] [address] [place] [address] Carlota Jin MD [address] [phone] 12/13/2024 6:45 EST Treatment [facility] [place] [address] [place], [place] [phone] Carlota Jin MD 1 [facility], [facility] 2 [place] [phone] 12/15/2024 6:45 EST Treatment [facility] - [place] [address] [place], [place] [phone] Carlota Jin MD 1 [facility], [facility] 2 [place] [phone] 12/18/2024 6:45 EST Treatment [facility] [place] [address] [place], [place] [phone] Carlota Jin MD 1 [facility], [facility] 2 [place] [phone] 12/20/2024 6:45 EST Treatment [facility] [place] [address] [place], [place] [phone] Carlota Jin MD 1 [facility], [facility] 2 [place] [phone] 12/22/2024 6:45 EST Treatment [facility] [place] [address] [place], [place] [id number] Carlota Jin MD 1 [facility], [facility] 2 [place] [phone] 12/25/2024 6:45 EST Treatment [facility] [place] [address] [place], [place] [phone] Carlota Jin MD 1 [facility] 2 [place] [phone] 12/27/2024 6:45 EST Treatment [facility] - [place] [address] [place], [place] [id number] Carlota Jin MD 1 [facility], [facility] [address] [place] [phone] 12/29/2024 6:45 EST Treatment [facility] [place] [address] [place], [place] [phone] Carlota Jin MD 1 [facility], [address] [phone] 01/01/2025 6:45 EDT Treatment [facility] [place] [address] [place], [place] [id number] Carlota Jin MD 1 [facility], [address] [phone] 01/03/2025 6:45 EDT Treatment [facility] [address] [place] [address] Carlota Jin MD 1 [facility], [facility] 2 [place] [phone] 01/05/2025 6:45 EDT Treatment [facility] [address] [place], [place] [phone] Carlota Jin MD 1 [facility], [facility] 2 [place] [phone] 01/08/2025 6:45 EDT Treatment [facility] [place] [address] [place], [place] [id number] Carlota Jin MD 1 [facility], [facility] 2 [place] [phone] 01/10/2025 6:45 EDT Treatment [facility] [place] [address] [place], [place] [id number] Carlota Jin MD 1 [facility], [address] [phone] 01/12/2025 6:45 EDT Treatment [facility] - [place] [address] [place], [place] [id number] Carlota Jin MD 1 [facility], [address] [phone] 01/15/2025 6:45 EDT Treatment [facility] [place] [address] [place], [place] [id number] Carlota Jin MD 1 [facility], [facility] 2 [place] [phone] 01/17/2025 6:45 EDT Treatment [facility] [place] [address] [place], [place] [id number] Carlota Jin MD 1 [facility], [facility] 2 [place] [phone] 01/19/2025 6:45 EDT Treatment [facility] [place] [address] [place], [place] [id number] Carlota Jin MD 1 [facility], [facility] 2 [place] [phone] 01/22/2025 6:45 EDT Treatment [facility] - [place] [address] [place], [place] [id number] Carlota Jin MD 1 [facility], [facility] 2 [place] [phone] 01/24/2025 6:45 EDT Treatment [facility] - [place] [address] [place] [address] Carlota Jin MD 1 [facility], [facility] 2 [place] [phone] 01/26/2025 6:45 EDT Treatment [facility] [place] [address] [place] [address] Carlota Jin MD 1 [facility], [facility] 2 [place] [phone] 01/29/2025 6:45 EDT Treatment [facility] [place] [address] [place] [address] Carlota Jin MD 1 [facility], [facility] [address] [place] [phone] 01/31/2025 6:45 EDT Treatment [facility] [place] [address] [place], [place] [id number] Carlota Jin MD 1 [facility], [facility] 2 [place] [phone] 02/02/2025 6:45 EDT Treatment [facility] [place] [address] [place], [place] [address] Carlota Jin MD 1 [facility], [facility] 2 [place] [phone] 02/05/2025 6:45 EDT Treatment [facility] [place] [address] [place], [place] [id number] Carlota Jin MD 1 [facility], [facility] 2 [place] [phone] 02/07/2025 6:45 EDT Treatment [facility] [place] [address] [place] [address] Carlota Jin MD 1 [facility], [address] [phone] 02/09/2025 6:45 EDT Treatment [facility] [place] [address] [place], [place] [address] Carlota Jin MD 1 [facility], [facility] 2 [place] [phone] 02/12/2025 6:45 EDT Treatment [facility] [place] [address] [place], [place] [id number] Carlota Jin MD 1 [facility], [facility] 2 [place] [phone] 02/14/2025 6:45 EDT Treatment [facility] [place] [address] [place], [place] [id number] Carlota Jin MD [address] [place] [address], [facility] 2 [place] [phone] 02/16/2025 6:45 EDT Treatment [facility] [place] [address] [place], [place] [id number] Carlota Jin MD [address] [place] [address], [facility] 2 [place] [phone] 02/19/2025 6:45 EDT [facility] [place] [address] [place], [place] [id number] Carlota Jin MD [address] [place] [address], [facility] 2 [place] [phone] 02/21/2025 6:45 ED[facility] [address] [place], [place] [phone] Carlota Jin MD [address] [place] [address], [facility] 2 [place] [phone] documented as of this encounter Visit Diagnoses Not on filedocumented in this encounter Discontinued Medications Medication Sig Discontinue Reason Start Date End Da te clopidogreL (PLAVIX) 75 mg tablet Take 1 Tablet by mouth daily. Therapy completed 04/12/2024 05/01/2024 documented as of this encounter Historical Medications * This list may reflect changes made after this encounter. polyethylene glycol 3350 (MIRALAX) 17 gram packet Take 17 g by mouth 2 times daily. senna-docusate (SENNA PLUS) 8.6-50 mg per tablet Take 1 Tablet by mouth daily. HYDROmorphone (DILAUDID) 2 mg tablet Take 2 Tablets by mouth every 4 hours as needed. lisinopriL (PRINIVIL) 10 mg tablet Take 1 Tablet by mouth daily. 06/19/2024 added in this encounter Care Teams Bookkeeping Machine Mechanic Relationship Specialty Start Date End Date Ken rGeer MD [address] [facility] [place] [address] PCP - General 07/07/23 documented as of this encounter
--- OUTSIDE RECORDS SUMMARY | 2024-12-05 12:04 | XMS_ITS | Encounter Summary ---
Author Organization [facility] Address [address] [place] [address] Care Team Providers Care Director Human Services Name Role Phone Ken Greer MD Primary Care Provider [phone] Encounter Details Date Type Department Care Team (Late st Contact Info) Description 05/12/2024 Documentation Visit [address] [place], [place] [address] Melissa Crespo, RN Social History Tobacco Use [...] Info) Description 12/06/2024 6:[address] [facility] [place] [address] [place], [place] [id number] Carlota Jin MD 1 [facility], [facility] [address] [place] [phone] 12/08/2024 6:[address] [facility] [place] [address] [place], [place] [id number] Carlota Jin MD 1 [facility] [address] [place] [phone] 12/11/2024 6:[address] [facility] [place] [address] [place], [place] [id number] Carlota Jin MD 1 [facility], [facility] [address] [place] [phone] 12/13/2024 6:[address] [facility] [address] [place], [place] [phone] Carlota Jin MD 1 [facility], [facility] [address] [place] [phone] 12/15/2024 6:[address] [facility] [place] [address] [place], [place] [phone] Carlota Jin MD 1 [facility], [facility] [address] [place] [phone] 12/18/2024 6:[address] [facility] [place] [address] [place], [place] [id number] Carlota Jin MD 1 [facility], [facility] [address] [place] [phone] 12/20/2024 6:[address] [facility] [place] [address] [place], [place] [id number] Carlota Jin MD 1 [facility], [facility] [address] [place] [phone] 12/22/2024 6:[address] [facility] [address] [place], [place] [phone] Carlota Jin MD 1 [facility], [facility] [address] [place] [phone] 12/25/2024 6:[address] [facility] [address] [place], [place] [phone] Carlota Jin MD 1 [facility], [facility] [address] [place] [phone] 12/27/2024 6:[address] [facility] [place] [address] [place], [place] [phone] Carlota Jin MD 1 [facility], [facility] [address] [place] [phone] 12/29/2024 6:[address] [facility] [place] [address] [place], [place] [id number] Carlota Jin MD 1 [facility], [address] [phone] 01/01/2025 6:[address] [facility] [place] [address] [place], [place] [id number] Carlota Jin MD 1 [facility], [address] [phone] 01/03/2025 6:[address] [facility] [place] [address] [place], [place] [id number] Carlota Jin MD 1 [facility], [address] [phone] 01/05/2025 6:[address] [facility] [place] [address] [place], [place] [phone] Carlota Jin MD [address] [place] [address], [facility] [address] [place] [phone] 01/08/2025 6:[address] [facility] [place] [address] [place], [place] [phone] Carlota Jin MD 1 [facility], Level [address] [place] [phone] 01/10/2025 6:[address] [facility] [place] [address] [place], [place] [address] Carlota Jin MD 1 [facility], [facility] [address] [place] [phone] 01/12/2025 6:[address] [facility] [place] [address] [place], [place] [phone] Carlota Jin MD 1 [facility], [facility] [address] [place] [phone] 01/15/2025 6:[address] [facility] [place] [address] [place], [place] [phone] Carlota Jin MD 1 [facility], [facility] [address] [place] [phone] 01/17/2025 6:[address] [facility] [address] [place], [place] [phone] Carlota Jin MD 1 [facility], [facility] [address] [place] [phone] 01/19/2025 6:[address] [facility] [address] [place], [place] [id number] Carlota Jin MD 1 [facility], [facility] [address] [place] [phone] 01/22/2025 6:[address] [facility] [place] [address] [place], [place] [id number] Carlota Jin MD 1 [facility], [facility] [address] [place] [phone] 01/24/2025 6:[address] [facility] [place] [address] [place], [place] [phone] Carlota Jin MD 1 [facility], [facility] [address] [place] [phone] 01/26/2025 6:[address] [facility] [place] [address] [place], [place] [id number] Carlota Jin MD 1 [facility], [facility] [address] [place] [phone] 01/29/2025 6:[address] [facility] [place] [address] [place], [place] [id number] Carlota Jin MD 1 [facility], [facility] [address] [place] [phone] 01/31/2025 6:[address] [facility] [place] [address] [place], [place] [phone] Carlota Jin MD 1 [facility], [facility] [address] [place] [phone] 02/02/2025 6:[address] [facility] [place] [address] [place], [place] [id number] Carlota Jin MD 1 [facility], [facility] [address] [place] [phone] 02/05/2025 6:[address] [facility] [place] [address] [place], [place] [phone] Carlota Jin MD 1 [facility], [facility] [address] [place] [phone] 02/07/2025 6:[address] [facility] [place] [address] [place] [address] Carlota Jin MD 1 [facility], [address] [phone] 02/09/2025 6:[address] [facility] [place] [address] [place], [place] [id number] Carlota Jin MD 1 [facility], [address] [phone] 02/12/2025 6:[address] [facility] [place] [address] [place] [address] Carlota Jin MD 1 [facility], [facility] [address] [place] [phone] 02/14/2025 6:[address] [facility] [place] [address] [place], [place] [phone] Carlota Jin MD 1 [facility], [facility] [address] [place] [phone] 02/16/2025 6:[address] [facility] [address] [place], [place] [id number] Carlota Jin MD 1 [facility], [facility] [address] [place] [phone] 02/19/2025 6:45 EDT [facility] [address] [place], [place] [id number] Carlota Jin MD [address] [place] [address], [facility] [address] [place] [phone] 02/21/2025 6:45 EDT Treatment [facility] [address] [place], [place] [phone] Carlota Jin MD [address] [place] [address], [facility] [address] [place] [phone] documented as of this encounter Visit Diagnoses Not on filedocumented in this encounter Care Teams Director Human Services Relationship Specialty Start Date End Date [place] [address] PCP - General 07/07/23 documented as of this encounter
--- OUTSIDE RECORDS SUMMARY | 2024-12-05 12:04 | XMS_ITS | Encounter Summary ---
Author Organization [facility] Address [address] [place] [address] Care Team Providers Care Cma Name Role Phone Ken Greer MD Primary Care Provider [phone] Reason for Visit * Episode Based Medications (Routine) - New Request Specialty Diagnoses / Procedures Referred By Nader pena Referred To Contact Diagnoses ESRD (end stage renal disease) ([facility]) Carlota Jin MD [address] [place] [phone] Phone: tel: fax: [facility] [place] [address] [place] [place] [address] Phone: tel: fax: Referral ID Status Reason Start Date Expiration Date V isits Requested Visits Authorized [id number] New Request 03/17/2024 1 1 Encounter Details Date Type Department Care Team (Latest Contact Info) Description 05/05/2024 6:45 EDT Treatment [facility] [address] [place] [phone] Carlota Jin MD [address] [place] [phone] ESRD (end stage renal disease) ([facility]) (Primary Dx); Anemia of chronic renal failure, unspecified CKD stage; Hypoalbuminemia; Secondary hyperparathyroidism ([facility]) Social History Tobacco Use Types [...] - Temperature - - Respiratory Rate 18 05/05/2024 0620 EDT Oxygen Saturation - - Inhaled Oxygen Concentration - - Weight 80.3 kg (177 lb 0.5 oz) 05/05/2024 0626 E DT Height - - Body Mass Index 25.4 12/20/2023 2202 EST documented in this encounter [...] Flowsheet Note - Keila Vizcarra RN - 05/05/2024 1142 EDT 05/05/24 1044 Post-Hemodialysis Assessment Total Blood Processed (L) 91.35 Liters On Line Clearance: spKt/V 1.71 spKt/V Dialyzer Clearance Lightly streaked Treatment UFR (ml:kg:hr) 6.66 ml:kg:hr Final Critline Profile (%/hr) -1.86 Final Profile Profile A Critline refill Not done Fluid Removed (L) 2.29 L Post-Dialysis Scale Weight 94.5 kg (208 lb 5.4 oz) Wheelchair Weight 16.3 kg (35 lb 15 oz) Prosthesis Weight 0 kg (0 lb) Post-Treatment Weight (kg) 78.2 Treatment Weight Change (kg) 2.1 kg Day Target Weight (kg) 78.5 Post Sitting/Lying BP 155/76 Post Sitting/Lying pulse 65 Temp 36.2 ??C (97.2 ??F) Temp src Temporal Minutes Short -242 Post access assessment AVF/AFG Hemostasis achieved Yes Note 10 min hold/ with clamps Orientation Alert and Oriented x3 Yes Time Yes Place Yes Person Yes Cooperative Yes Disoriented No Discharge Ambulation Methods Departs via w/c;With patient transport Wrap up items Patient Response to Treatment Tolerated treatment well. Removed 2300 mL UF goal without difficulty. Comments No issues during treatment. No concerns voiced post treatment. documented in this encounter Plan of Treatment Upcoming Encounters Date Type Department Care Team (Late st Contact Info) Description 12/06/2024 6:45 EST Treatment [facility] [place] [address] [place] [phone] Carlota Jin MD 1 [facility], [facility] [address] [place] [phone] 12/08/2024 6:45 EST Treatment [facility] [address] [place] [id number] Carlota Jin MD 1 [facility], [facility] 2 [place] [phone] 12/11/2024 6:45 EST Treatment [facility] [place] [address] [place], [place] [phone] Carlota Jin MD 1 [facility], [facility] 2 [place] [phone] 12/13/2024 6:45 EST Treatment [facility] [place] [address] [place], [place] [phone] Carlota Jin MD 1 [facility], [facility] 2 [place] [phone] 12/15/2024 6:45 EST Treatment [facility] [place] [address] [place], [place] [phone] Carlota Jin MD 1 [facility], [facility] [address] [place] [phone] 12/18/2024 6:45 EST Treatment [facility] [address] [place], [place] [phone] Carlota Jin MD 1 [facility], [facility] [address] [place] [phone] 12/20/2024 6:45 EST Treatment [facility] [place] [address] [place], [place] [phone] Carlota Jin MD 1 [facility], [facility] 2 [place] [phone] 12/22/2024 6:45 EST Treatment [facility] [place] [address] [place], [place] [phone] Carlota Jin MD 1 [facility], [facility] [address] [place] [phone] 12/25/2024 6:45 EST Treatment [facility] [place] [address] [place], [place] [id number] Carlota Jin MD 1 [facility], [facility] [address] [place] [phone] 12/27/2024 6:45 EST Treatment [facility] [place] [address] [place], [place] [phone] Carlota Jin MD 1 [facility], [facility] [address] [place] [phone] 12/29/2024 6:45 EST Treatment [facility] [place] [address] [place], [place] [phone] Carlota Jin MD 1 [facility], [facility] 2 [place] [phone] 01/01/2025 6:45 EDT Treatment [facility] [place] [address] [place], [place] [phone] Carlota Jin MD 1 [facility], [facility] 2 [place] [phone] 01/03/2025 6:45 EDT Treatment [facility] [address] [place], [place] [phone] Carlota Jin MD 1 [facility], [facility] 2 [place] [phone] 01/05/2025 6:45 EDT Treatment [facility] [place] [address] [place] [address] Carlota Jin MD 1 [facility], [facility] 2 [place] [phone] 01/08/2025 6:45 EDT Treatment [facility] [place] [address] [place] [address] Carlota Jin MD 1 [facility], [facility] 2 [place] [phone] 01/10/2025 6:45 EDT Treatment [facility] [place] [address] [place], [place] [phone] Carlota Jin MD 1 [facility], [facility] [address] [place] [phone] 01/12/2025 6:45 EDT Treatment [facility] [place] [address] [place] [address] Carlota Jin MD 1 [facility], [facility] 2 [place] [phone] 01/15/2025 6:45 EDT Treatment [facility] [place] [address] [place], [place] [phone] Carlota Jin MD 1 [facility], [facility] 2 [place] [phone] 01/17/2025 6:45 EDT Treatment [facility] [place] [address] [place], [place] [phone] Carlota Jin MD 1 [facility], [facility] 2 [place] [phone] 01/19/2025 6:45 EDT Treatment [facility] [place] [address] [place], [place] [phone] Carlota Jin MD 1 [facility], [facility] 2 [place] [phone] 01/22/2025 6:45 EDT Treatment [facility] [address] [place], [place] [id number] Carlota Jin MD 1 [facility], [facility] 2 [place] [phone] 01/24/2025 6:45 EDT Treatment [facility] [address] [place], [place] [address] Carlota Jin MD 1 [facility], [facility] 2 [place] [phone] 01/26/2025 6:45 EDT Treatment [facility] [address] [place], [place] [phone] Carlota Jin MD 1 [facility], [facility] [address] [place] [phone] 01/29/2025 6:45 EDT Treatment [facility] [place] [address] [place], [place] [address] Carlota Jin MD 1 [facility], [facility] 2 [place] [phone] 01/31/2025 6:45 EDT Treatment [facility] [place] [address] [place], [place] [phone] Carlota Jin MD 1 [facility], [address] [phone] 02/02/2025 6:45 EDT Treatment [facility] [place] [address] [place], [place] [id number] Carlota Jin MD 1 [facility], [address] [phone] 02/05/2025 6:45 EDT Treatment [facility] [place] [address] [place], [place] [phone] Carlota Jin MD [address] [phone] 02/07/2025 6:45 EDT Treatment [facility] [place] [address] [place], [place] [id number] Carlota Jin MD [address] [phone] 02/09/2025 6:45 EDT Treatment [facility] [place] [address] [place], [place] [id number] Carlota Jin MD 1 [facility], [facility] 2 [place] [phone] 02/12/2025 6:45 EDT Treatment [facility] [place] [address] [place], [place] [id number] Carlota Jin MD 1 [facility], [facility] 2 [place] [phone] 02/14/2025 6:45 EDT Treatment [facility] [place] [address] [place], [place] [id number] Carlota Jin MD 1 [facility], [address] [phone] 02/16/2025 6:45 EDT Treatment [facility] [place] [address] [place], [place] [id number] Carlota Jin MD [address] [phone] 02/19/2025 6:45 EDT Treatment [facility] [place] [address] [place] [address] Carlota Jin MD 1 [facility], [address] [phone] 02/21/2025 6:45 EDT Treatment [facility] [place] [address] [place], [place] [phone] Carlota Jin MD 1 [facility], [address] [phone] documented as of this encounter Procedures Procedure Name Priority Date/Time Associated Diagnosis Comments POTASSIUM Routine 05/05/2024 6:33 EDT ESRD (end stage renal disease) ([facility]) HEMODIALYSIS Routine 05/05/2024 6:20 EDT ESRD (end stage renal disease) ([facility]) documented in this encounter Results * (ABNORMAL) POTASSIUM (05/05/2024 6:33 EDT) Potassium 5.6(H) 3.5 - 5.0 mmol/L 05/05/2024 21:42 EDT [facility] Blood VENOUS BLOOD / Unknown Venipuncture / Unknown 05/05/2024 6:33 EDT 05/05/2024 6:33 EDT us Skye Gomez NP CHEMISTRY & BLOOD GAS ORDER FRANSISCO Final Result Performing Organization Address City/State/[facility] Co de Phone Number [facility] [address] [place] [phone] documented in this encounter Visit Diagnoses Diagnosis ESRD (end stage renal disease) ([facility])- Primary End stage renal disease Anemia of chronic renal failure, unspecified CKD stage Hypoalbuminemia Other disorders of plasma protein metabolism Secondary hyperparathyroidism ([facility]) Secondary hyperparathyroidism (of renal origin) documented in this encounter Administered Medications Inactive Administered Medications - up to 3 most recent administrations Medication Order MAR Action Action Date Dose Rate Site calcium carbonate (TUMS) tablet 500 mg (200 mg elemental calcium) 2 Tablet 2 Tablet, oral, ONCE IN DIALYSIS, 1 dose, On Wed05/05/24 at 0645, Routine, DialysisIndications:ESRD (end stage renal disease) ([facility]),Secondary hyperparathyroidism ([facility]) Given 05/05/2024 6:59 EDT 2 Tablets epoetin ken (EPOGEN) 20,000 unit/2 mL injection 8,000 Units 8,000 Units, intravenous, ONCE IN DIALYSIS, 1 dose, On Wed05/05/24 at 0645, Routine, DialysisIndications:ESRD (end stage renal disease) ([facility]),Anemia of chronic renal failure, unspecified CKD stage Given 05/05/2024 6:51 EDT 8,000 Units heparin injection 7,000 Units 7,000 Units, intravenous, ONCE IN DIALYSIS, 1 dose, On Wed05/05/24 at 0645, Routine, Dialysis, Now x1 bolus 3400 units to be given at the beginning of dialysis 900 units/hour to be given over the course of dialysis (7000 units total). Stop 1 hour prior to end of treatment. To be administered per Policy [id number].Indications:ESRD (end stage renal disease) ([facility]) Given 05/05/2024 6:51 EDT 7,000 Units LiquaCel liquid protein liquid 30 mL 30 mL, oral, ONCE IN DIALYSIS, 1 dose, On Wed05/05/24 at 0645, Patient's flavor preference: either, RoutineIndications:ESRD (end stage renal disease) ([facility]),Hypoalbuminemia Given 05/05/2024 6:59 EDT 30 mL documented in this encounter Orders Dialysis Count Last Ordered Date First Orde red Date HEMODIALYSIS 1 05/05/2024 documented in this encounter Care Teams Cma Relationship Specialty Start Date End Date Ken Greer MD [address] [place] [address] PCP - General 07/07/23 documented as of this encounter
--- OUTSIDE RECORDS SUMMARY | 2024-12-05 12:04 | XMS_ITS | Encounter Summary ---
Author Organization [facility] Address [address] [place] [address] Care Team Providers Care Endless Steamer Tender Name Role Phone Ken Greer MD Primary Care Provider [phone] Encounter Details Date Type Department Care Team (Late st Contact Info) Description 05/01/2024 Documentation Visit [facility] [address] [place] [address] Alexa Estrada [facility] [address] [place] [address] Social History Tobacco Use Types Packs/Day Years [...] documented in this encounter Progress Notes * Natalie Alexa, CAKE PRESS OPERATOR - 05/01/2024 0950 EDT 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 Pt was drowsy and unable to hold conversation for longer than 15-20 seconds. Pts provides all care for pt who is now in a w/c, they are working with the [employer] to apply for CFC. SW will continue to follow and remain available. Current Living Situation: Lives with family and Lives with friends Lives with family Pt lives with his , Hoda, in their apartment in [place]. He rents the apartment and has a [...] Transportation Status: Transportation: Drives Self Payor: Receives [employer] mileage reimbursement. Change in Physical/Medical Status and [...] Patient/Family Strengths: Pt is friendly and engaging Interests/Spiritual/Restoration Practice: No spiritual practices Depression Screening: Is [...] EST Treatment [facility] [place] [address] [place] [address] Carlota Jin MD 1 [facility], Level [address] [place] [address] 12/08/2024 6:45 EST Treatment [facility] [place] [address] [place], [place] [id number] Carlota Jin MD 1 [facility], [facility] 2 [place] [phone] 12/11/2024 6:45 EST Treatment [facility] [place] [address] [place], [place] [id number] Carlota Jin MD 1 [facility], [facility] 2 [place] [phone] 12/13/2024 6:45 EST Treatment [facility] [place] [address] [place], [place] [id number] Carlota Jin MD 1 [facility], [facility] 2 [place] [phone] 12/15/2024 6:45 EST Treatment [facility] [place] [address] [place], [place] [id number] Carlota Jin MD 1 [facility], [facility] 2 [place] [phone] 12/18/2024 6:45 EST Treatment [facility] [place] [address] [place], [place] [id number] Carlota Jin MD 1 [facility], [facility] 2 [place] [phone] 12/20/2024 6:45 EST Treatment [facility] [place] [address] [place], [place] [id number] Carlota Jin MD 1 [facility], [facility] 2 [place] [phone] 12/22/2024 6:45 EST Treatment [facility] [place] [address] [place], [place] [address] Carlota Jin MD 1 [facility], [facility] 2 [place] [phone] 12/25/2024 6:45 EST Treatment [facility] [place] [address] [place], [place] [id number] Carlota Jin MD 1 [facility], [facility] 2 [place] [phone] 12/27/2024 6:45 EST Treatment [facility] [place] [address] [place], [place] [id number] Carlota Jin MD 1 [facility], [facility] 2 [place] [phone] 12/29/2024 6:45 EST Treatment [facility] [place] [address] [place], [place] [id number] Carlota Jin MD 1 [facility], [facility] 2 [place] [phone] 01/01/2025 6:45 EDT Treatment [facility] [place] [address] [place], [place] [id number] Carlota Jin MD 1 [facility], [facility] 2 [place] [phone] 01/03/2025 6:45 EDT Treatment [facility] [place] [address] [place], [place] [id number] Carlota Jin MD 1 [facility], [facility] 2 [place] [phone] 01/05/2025 6:45 EDT Treatment [facility] [place] [address] [place], [place] [id number] Carlota Jin MD 1 [facility], [address] [phone] 01/08/2025 6:45 EDT Treatment [facility] [place] [address] [place], [place] [id number] Carlota Jin MD 1 [facility], [address] [phone] 01/10/2025 6:45 EDT Treatment [facility] [place] [address] [place], [place] [id number] Carlota Jin MD 1 [facility], [facility] 2 [place] [phone] 01/12/2025 6:45 EDT Treatment [facility] [place] [address] [place], [place] [id number] Carlota Jin MD 1 [facility], [facility] 2 [place] [phone] 01/15/2025 6:45 EDT Treatment [facility] [place] [address] [place], [place] [id number] Carlota Jin MD 1 [facility], [facility] 2 [place] [phone] 01/17/2025 6:45 EDT Treatment [facility] [place] [address] [place], [place] [id number] Carlota Jin MD 1 [facility], [facility] 2 [place] [phone] 01/19/2025 6:45 EDT Treatment [facility] [place] [address] [place] [address] Carlota Jin MD 1 [facility], [facility] 2 [place] [phone] 01/22/2025 6:45 EDT Treatment [facility] [place] [address] [place] [address] Carlota Jin MD 1 [facility], [facility] 2 [place] [phone] 01/24/2025 6:45 EDT Treatment [facility] [place] [address] [place] [address] Carlota Jin MD 1 [facility], [facility] 2 [place] [phone] 01/26/2025 6:45 EDT Treatment [facility] - [place] [address] [place], [place] [id number] Carlota Jin MD 1 [facility], [facility] 2 [place] [phone] 01/29/2025 6:45 EDT Treatment [facility] [place] [address] [place], [place] [address] Carlota Jin MD 1 [facility], [facility] 2 [place] [phone] 01/31/2025 6:45 EDT Treatment [facility] [place] [address] [place], [place] [id number] Carlota Jin MD 1 [facility], [facility] 2 [place] [phone] 02/02/2025 6:45 EDT Treatment [facility] [place] [address] [place] [address] Carlota Jin MD 1 [facility], [address] [phone] 02/05/2025 6:45 EDT Treatment [facility] [place] [address] [place], [place] [address] Carlota Jin MD 1 [facility], [facility] 2 [place] [phone] 02/07/2025 6:45 EDT Treatment [facility] [place] [address] [place], [place] [id number] Carlota Jin MD 1 [facility], [facility] 2 [place] [phone] 02/09/2025 6:45 EDT Treatment [facility] [place] [address] [place], [place] [id number] Carlota Jin MD 1 [facility], [facility] 2 [place] [phone] 02/12/2025 6:45 EDT Treatment [facility] [place] [address] [place] [address] Carlota Jin MD 1 [facility], [facility] 2 [place] [phone] 02/14/2025 6:45 EDT Treatment [facility] [place] [address] [place] [address] Carlota Jin MD 1 [facility], [facility] 2 [place] [phone] 02/16/2025 6:45 EDT Treatment [facility] [place] [address] [place], [place] [id number] Carlota Jin MD 1 [facility], [facility] 2 [place] [phone] 02/19/2025 6:45 EDT Treatment [facility] [place] [address] [place] [address] Carlota Jin MD 1 [facility], [facility] 2 [place] [phone] 02/21/2025 6:45 EDT Treatment [facility] [place] [address] [place], [place] [id number] Carlota Jin MD 1 [facility], [facility] 2 [place] [phone] documented as of this encounter Visit Diagnoses Not on filedocumented in this encounter Care Teams Endless Steamer Tender Relationship Specialty Start Date End Date Ken Gre[place] [address] [place] [address] PCP - General 07/07/23 documented as of this encounter
--- OUTSIDE RECORDS SUMMARY | 2024-12-05 12:04 | XMS_ITS | Encounter Summary ---
Author Organization [facility] Address [address] [place] [address] Care Team Providers Care Road Conductor Name Role Phone Ken Greer MD Primary Care Provider [phone] Encounter Details Date Type Department Care Team (Late st Contact Info) Description 05/03/2024 Orders Only [facility] [address] [place], [place] [address] Marcela Cox, VIDYA Social History Tobacco Use [...] - [place] [address] [place], [place] [id number] Carlota Jin MD 1 [facility], [facility] 2 [place] [phone] 12/08/2024 6:45 EST Treatment [facility] [place] [address] [place], [place] [id number] Carlota Jin MD 1 [facility] 2 [place] [phone] 12/11/2024 6:45 EST Treatment [facility] [place] [address] [place], [place] [id number] Carlota Jin MD 1 [facility], [facility] 2 [place] [phone] 12/13/2024 6:45 EST Treatment [facility] [address] [place], [place] [id number] Carlota Jin MD 1 [facility], [facility] 2 [place] [phone] 12/15/2024 6:45 EST Treatment [facility] [place] [place] [address] [place], [place] [id number] Carlota Jin MD 1 [facility], [facility] 2 [place] [phone] 12/18/2024 6:45 EST Treatment [facility] [place] [address] [place], [place] [id number] Carlota Jin MD 1 [facility], [facility] 2 [place] [phone] 12/20/2024 6:45 EST Treatment [facility] [place] - [place] [address] [place], [place] [id number] Carlota Jin MD 1 [facility], [facility] 2 [place] [phone] 12/22/2024 6:45 EST Treatment [facility] [address] [place], [place] [id number] Carlota Jin MD 1 [facility], [facility] 2 [place] [phone] 12/25/2024 6:45 EST Treatment [facility] [address] [place], [place] [id number] Carlota Jin MD 1 [facility], [facility] 2 [place] [phone] 12/27/2024 6:45 EST Treatment [facility] [place] [place] [address] [place], [place] [id number] Carlota Jin MD 1 [facility], [facility] 2 [place] [phone] 12/29/2024 6:45 EST Treatment [facility] [place] - [place] [address] [place], [place] [id number] Carlota Jin MD 1 [facility], [address] [phone] 01/01/2025 6:45 EDT Treatment [facility] [place] - [place] [address] [place], [place] [id number] Carlota Jin MD 1 [facility], [address] [phone] 01/03/2025 6:45 EDT Treatment [facility] [place] [address] [place], [place] [id number] Carlota Jin MD 1 [facility], [address] [phone] 01/05/2025 6:45 EDT Treatment [facility] [place] [address] [place], [place] [id number] Carlota Jin MD [address] [place] [address], [facility] 2 [place] [phone] 01/08/2025 6:45 EDT Treatment [facility] [place] [address] [place], [place] [id number] Carlota Jin MD 1 [facility], Level [address] [place] [phone] 01/10/2025 6:45 EDT Treatment [facility] [place] [place] [address] [place], [place] [address] Carlota Jin MD 1 [facility], [facility] 2 [place] [phone] 01/12/2025 6:45 EDT Treatment [facility] [place] [address] [place], [place] [id number] Carlota Jin MD 1 [facility], [facility] 2 [place] [phone] 01/15/2025 6:45 EDT Treatment [facility] [place] [address] [place], [place] [id number] Carlota Jin MD 1 [facility], [facility] 2 [place] [phone] 01/17/2025 6:45 EDT Treatment [facility] [address] [place], [place] [id number] Carlota Jin MD 1 [facility], [facility] 2 [place] [phone] 01/19/2025 6:45 EDT Treatment [facility] [address] [place], [place] [id number] Carlota Jin MD 1 [facility], [facility] 2 [place] [phone] 01/22/2025 6:45 EDT Treatment [facility] [address] [place], [place] [id number] Carlota Jin MD 1 [facility], [facility] 2 [place] [phone] 01/24/2025 6:45 EDT Treatment [facility] [place] [address] [place], [place] [id number] Carlota Jin MD 1 [facility], [facility] 2 [place] [phone] 01/26/2025 6:45 EDT Treatment [facility] [place] [address] [place], [place] [id number] Carlota Jin MD 1 [facility], [facility] 2 [place] [phone] 01/29/2025 6:45 EDT Treatment [facility] [place] [address] [place], [place] [id number] Carlota Jin MD 1 [facility], [facility] 2 [place] [phone] 01/31/2025 6:45 EDT Treatment [facility] - [place] [address] [place], [place] [id number] Carlota Jin MD 1 [facility], [facility] 2 [place] [phone] 02/02/2025 6:45 EDT Treatment [facility] [place] [address] [place], [place] [id number] Carlota Jin MD 1 [facility], [facility] 2 [place] [phone] 02/05/2025 6:45 EDT Treatment [facility] [place] - [place] [address] [place], [place] [id number] Carlota Jin MD 1 [facility], [facility] 2 [place] [phone] 02/07/2025 6:45 EDT Treatment [facility] [place] - [place] [address] [place] [address] Carlota Jin MD 1 [facility], [address] [phone] 02/09/2025 6:45 EDT Treatment [facility] [place] - [place] [address] [place], [place] [id number] Carlota Jin MD 1 [facility], [address] [phone] 02/12/2025 6:45 EDT Treatment [facility] [place] - [place] [address] [place] [address] Carlota Jin MD 1 [facility], [facility] 2 [place] [phone] 02/14/2025 6:45 EDT Treatment [facility] [place] [address] [place], [place] [id number] Carlota Jin MD 1 [facility], [facility] 2 [place] [phone] 02/16/2025 6:45 EDT Treatment [facility] D[facility]i [facility] [address] [place], [place] [id number] Carlota Jin MD 1 [facility], [facility] 2 [place] [phone] 02/19/2025 6:45 EDT Treatment [facility] [address] [place], [place] [id number] Carlota Jin MD [address] [place] [address], [facility] 2 [place] [phone] 02/21/2025 6:45 EDT Treatment [facility] [address] [place], [place] [id number] Carlota Jin MD [address] [place] [address], [facility] 2 [place] [phone] documented as of this encounter Visit Diagnoses Not on filedocumented in this encounter Care Teams Road Conductor Relationship Specialty Start Date End [place] [address] PCP - General 07/07/23 documented as of this encounter
--- OUTSIDE RECORDS SUMMARY | 2024-12-05 12:04 | XMS_ITS | Encounter Summary ---
Author Organization [facility] Address [address] [place] [address] Care Team Providers Care Filer Metal Patterns Name Role Phone Ken Greer MD Primary Care Provider [phone] Encounter Details Date Type Department Care Team (Late st Contact Info) Description 05/05/2024 Documentation Visit [address] [place], [place] [address] Melissa Crespo, RN Social History Tobacco Use [...] [facility] [place] [address] [place], [place] [id number] Carlota Jin MD 1 [facility], [facility] [address] [place] [phone] 12/08/2024 6:45 EST Treatment [facility] [place] [address] [place], [place] [id number] Carlota Jin MD 1 [facility] 2 [place] [phone] 12/11/2024 6:45 EST Treatment [facility] [place] [address] [place], [place] [id number] Carlota Jin MD 1 [facility], [facility] [address] [place] [phone] 12/13/2024 6:45 EST Treatment [facility] [address] [place], [place] [id number] Carlota Jin MD 1 [facility], [facility] [address] [place] [phone] 12/15/2024 6:45 EST Treatment [facility] [place] [address] [place], [place] [phone] Carlota Jin MD 1 [facility], [facility] [address] [place] [phone] 12/18/2024 6:45 EST Treatment [facility] [place] [address] [place], [place] [id number] Carlota Jin MD 1 [facility], [facility] [address] [place] [phone] 12/20/2024 6:45 EST Treatment [facility] [place] [address] [place], [place] [id number] Carlota Jin MD 1 [facility], [facility] [address] [place] [phone] 12/22/2024 6:45 EST Treatment [facility] [address] [place], [place] [id number] Carlota Jin MD 1 [facility], [facility] [address] [place] [phone] 12/25/2024 6:45 EST Treatment [facility] [address] [place], [place] [phone] Carlota Jin MD 1 [facility], [facility] [address] [place] [phone] 12/27/2024 6:45 EST Treatment [facility] [place] [address] [place], [place] [id number] Carlota Jin MD 1 [facility], [facility] [address] [place] [phone] 12/29/2024 6:45 EST Treatment [facility] [place] [address] [place], [place] [id number] Carlota Jin MD 1 [facility], [address] [phone] 01/01/2025 6:45 EDT Treatment [facility] [place] [address] [place], [place] [id number] Carlota Jin MD 1 [facility], [address] [phone] 01/03/2025 6:45 EDT Treatment [facility] [place] [address] [place], [place] [phone] Carlota Jin MD 1 [facility], [address] [phone] 01/05/2025 6:45 EDT Treatment [facility] [place] [address] [place], [place] [id number] Carlota Jin MD [address] [place] [address], [facility] 2 [place] [phone] 01/08/2025 6:45 EDT Treatment [facility] [place] [address] [place], [place] [phone] Carlota Jin MD 1 [facility], [facility] [address] [place] [phone] 01/10/2025 6:45 EDT Treatment [facility] [place] [address] [place], [place] [id number] Carlota Jin MD 1 [facility], [facility] [address] [place] [phone] 01/12/2025 6:45 EDT Treatment [facility] [place] [address] [place], [place] [phone] Carlota Jin MD 1 [facility], [facility] [address] [place] [phone] 01/15/2025 6:45 EDT Treatment [facility] [place] [address] [place], [place] [phone] Carlota Jin MD 1 [facility], [facility] [address] [place] [phone] 01/17/2025 6:45 EDT Treatment [facility] [address] [place], [place] [phone] Carlota Jin MD 1 [facility], [facility] [address] [place] [phone] 01/19/2025 6:45 EDT Treatment [facility] [address] [place], [place] [phone] Carlota Jin MD 1 [facility], [facility] [address] [place] [phone] 01/22/2025 6:45 EDT Treatment [facility] [place] [address] [place], [place] [phone] Carlota Jin MD 1 [facility], [facility] [address] [place] [phone] 01/24/2025 6:45 EDT Treatment [facility] [place] [address] [place], [place] [phone] Carlota Jin MD 1 [facility], [facility] [address] [place] [phone] 01/26/2025 6:45 EDT Treatment [facility] [place] [address] [place], [place] [phone] Carlota Jin MD 1 [facility], [facility] [address] [place] [phone] 01/29/2025 6:45 EDT Treatment [facility] [place] [address] [place], [place] [phone] Carlota Jin MD 1 [facility], [facility] [address] [place] [phone] 01/31/2025 6:45 EDT Treatment [facility] [place] [address] [place], [place] [phone] Carlota Jin MD 1 [facility], [facility] [address] [place] [phone] 02/02/2025 6:45 EDT Treatment [facility] [place] [address] [place] [phone] Carlota Jin MD 1 [facility], [facility] 2 [place] [phone] 02/05/2025 6:45 EDT Treatment [facility] [place] [address] [place], [place] [phone] Carlota Jin MD 1 [facility], [facility] [address] [place] [phone] 02/07/2025 6:45 EDT Treatment [facility] [place] [address] [place] [address] Carlota Jin MD 1 [facility], [address] [phone] 02/09/2025 6:45 EDT Treatment [facility] [place] [address] [place], [place] [phone] Carlota Jin MD 1 [facility], [address] [phone] 02/12/2025 6:45 EDT Treatment [facility] - [place] [address] [place] [address] Carlota Jin MD 1 [facility], [facility] [address] [place] [phone] 02/14/2025 6:45 EDT Treatment [facility] [place] [address] [place], [place] [phone] Carlota Jin MD 1 [facility], [facility] [address] [place] [phone] 02/16/2025 6:45 EDT Treatment [facility] [address] [place], [place] [phone] Carlota Jin MD 1 [facility], [facility] [address] [place] [phone] 02/19/2025 6:45 EDT [facility] [address] [place], [place] [phone] Carlota Jin MD [address] [place] [address], [facility] [address] [place] [phone] 02/21/2025 6:45 EDT Treatment [facility] [address] [place], [place] [phone] Carlota Jin MD [address] [place] [address], [facility] [address] [place] [phone] documented as of this encounter Visit Diagnoses Not on filedocumented in this encounter Care Teams Filer Metal Patterns Relationship Specialty Start Date End Date [place] [address] PCP - General 07/07/23 documented as of this encounter
--- OUTSIDE RECORDS SUMMARY | 2024-12-05 12:04 | XMS_ITS | Encounter Summary ---
Author Organization [facility] Address [address] [place] [address] Care Team Providers Care Respiratory Care Assistant Name Role Phone Ken Greer MD Primary Care Provider [phone] Encounter Details Date Type Department Care Team (Late st Contact Info) Description 05/03/2024 Documentation Visit [address] [place] [address] Shelley Eden, RD [address] [place] [address] Social History Tobacco Use Types Packs/Day Years [...] Contact Info) Description 12/06/2024 6:45 EST Treatment [facility] [address] [place], [place] [phone] Carlota Jin MD [address] [place] [address], [facility] 2 [place] [phone] 12/08/2024 6:45 EST Treatment [facility] [address] [place], [place] [phone] Carlota Jin MD [address] [place] [address] 2 [place] [phone] 12/11/2024 6:45 EST Treatment [facility] [address] [place], [place] [phone] Carlota Jin MD [address] [place] [address] 2 [place] [phone] 12/13/2024 6:45 EST Treatment [facility] [address] [place], [place] [phone] Carlota Jin MD 1 [facility], [facility] 2 [place] [phone] 12/15/2024 6:45 EST Treatment [facility] [place] [address] [place], [place] [phone] Carlota Jin MD 1 [facility], [facility] 2 [place] [phone] 12/18/2024 6:45 EST Treatment [facility] [place] [address] [place] [address] Carlota Jin MD 1 [facility], [facility] 2 [place] [phone] 12/20/2024 6:45 EST Treatment [facility] [place] [address] [place] [address] Carlota Jin MD 1 [facility], [facility] 2 [place] [phone] 12/22/2024 6:45 EST Treatment [facility] [place] [address] [place], [place] [phone] Carlota Jin MD 1 [facility], [facility] 2 [place] [phone] 12/25/2024 6:45 EST Treatment [facility] [place] [address] [place], [place] [phone] Carlota Jin MD 1 [facility], [facility] 2 [place] [phone] 12/27/2024 6:45 EST Treatment [facility] [place] [address] [place], [place] [phone] Carlota Jin MD 1 [facility], [facility] 2 [place] [phone] 12/29/2024 6:45 EST Treatment [facility] [place] [address] [place], [place] [phone] Carlota Jin MD [address] [facility], [facility] 2 [place] [phone] 01/01/2025 6:45 EDT Treatment [facility] [place] [address] [place], [place] [phone] Carlota Jin MD 1 [facility], [facility] 2 [place] [phone] 01/03/2025 6:45 EDT Treatment [facility] [place] [address] [place], [place] [phone] Carlota Jin MD [address] [facility], [facility] 2 [place] [phone] 01/05/2025 6:45 EDT Treatment [facility] [place] [address] [place], [place] [phone] Carlota Jin MD 1 [facility], [facility] 2 [place] [phone] 01/08/2025 6:45 EDT Treatment [facility] [place] [address] [place], [place] [phone] Carlota Jin MD 1 [facility], [facility] 2 [place] [phone] 01/10/2025 6:45 EDT Treatment [facility] [place] [address] [place], [place] [phone] Carlota Jin MD 1 [facility], [facility] 2 [place] [phone] 01/12/2025 6:45 EDT Treatment [facility] [place] [address] [place] [address] Carlota Jin MD 1 [facility], [address] [phone] 01/15/2025 6:45 EDT Treatment [facility] [place] [address] [place], [place] [phone] Carlota Jin MD 1 [facility], [address] [phone] 01/17/2025 6:45 EDT Treatment [facility] [place] [address] [place] [address] Carlota Jin MD 1 [facility], [facility] 2 [place] [phone] 01/19/2025 6:45 EDT Treatment [facility] [place] [address] [place], [place] [phone] Carlota Jin MD 1 [facility], [facility] 2 [place] [phone] 01/22/2025 6:45 EDT Treatment [facility] [place] [address] [place], [place] [address] Carlota Jin MD 1 [facility], [facility] 2 [place] [phone] 01/24/2025 6:45 EDT Treatment [facility] [place] [address] [place], [place] [address] Carlota Jin MD 1 [facility], [facility] 2 [place] [phone] 01/26/2025 6:45 EDT Treatment [facility] [place] [address] [place], [place] [address] Carlota Jin MD 1 [facility], [address] [phone] 01/29/2025 6:45 EDT Treatment [facility] [place] [address] [place], [place] [address] Carlota Jin MD 1 [facility], [facility] 2 [place] [phone] 01/31/2025 6:45 EDT Treatment [facility] [place] [address] [place], [place] [phone] Carlota Jin MD 1 [facility], [facility] 2 [place] [phone] 02/02/2025 6:45 EDT Treatment [facility] [place] [address] [place], [place] [address] Carlota Jin MD 1 [facility], [address] [phone] 02/05/2025 6:45 EDT Treatment [facility] [place] [address] [place], [place] [address] [phone] Carlota Jin MD 1 [facility], [address] [phone] 02/07/2025 6:45 EDT Treatment [facility] [place] [address] [place], [place] [address] Carlota Jin MD 1 [facility], [address] [phone] 02/09/2025 6:45 EDT Treatment [facility] [place] [address] [place] [address] Carlota Jin MD 1 [facility], [address] [phone] 02/12/2025 6:45 EDT Treatment [facility] [place] [address] [place], [place] [phone] Carlota Jin MD [address] [phone] 02/14/2025 6:45 EDT Treatment [facility] [place] [address] [place], [place] [address] Carlota Jin MD 1 [facility], [address] [phone] 02/16/2025 6:45 EDT Treatment [facility] [place] [address] [place], [place] [phone] Carlota Jin MD 1 [facility], [facility] 2 [place] [phone] 02/19/2025 6:45 EDT Treatment [facility] [place] [address] [place], [place] [phone] Carlota Jin MD [address] [place] [address], [facility] 2 [place] [phone] 02/21/2025 6:45 EDT Treatment [facility] [place] [address] [place], [place] [phone] Carlota Jin MD [address] [place] [address], [facility] 2 [place] [phone] documented as of this encounter Visit Diagnoses Not on filedocumented in this encounter Care Teams Respiratory Care Assistant Relationship Specialty Start Date End Date Ken [place] [address] [place] [address] PCP - General 07/07/23 documented as of this encounter
--- OUTSIDE RECORDS SUMMARY | 2024-12-05 12:04 | XMS_ITS | Encounter Summary ---
Author Organization [facility] Address [address] [place] [address] Care Team Providers Care Anvil Worker Name Role Phone Ken Greer MD Primary Care Provider [phone] Encounter Details Date Type Department Care Team (Late st Contact Info) Description 05/01/2024 Orders Only [facility] [address], [place] [phone] kSye Gomez NP 1 [facility], Level 2 [place] [address] Social History Tobacco Use Types [...] Angélica Lazo RN documented in this encounter Ordered Prescriptions Prescription Sig Dispense Quantity Refills Last Filled Start Date End Date sevelamer carbonate (RENVELA) 800 mg tablet Take 2 Tablets by mouth 3 times daily with meals. 540 Tablet 3 05/01/2024 4 documented in this encounter Progress Notes * Skye Gomez NP - 05/01/2024 1123 EDT Sevelamer refill sent documented in this encounter Plan of Treatment Upcoming Encounters Date Type Department Care Team (Late st Contact Info) Description 12/06/2024 6:45 EST Treatment [facility] [address] [place], [place] [address] Carlota Jin MD [address] [place] [phone] 12/08/2024 6:45 EST Treatment [facility] [address] [place], [place] [address] Carlota Jin MD [address] [place] [address], [address] [phone] 12/11/2024 6:45 EST Treatment [facility] [place] [address] [place], [place] [phone] Carlota Jin MD 1 [facility], [facility] 2 [place] [phone] 12/13/2024 6:45 EST Treatment [facility] [place] [address] [place], [place] [phone] Carlota Jin MD 1 [facility], [facility] 2 [place] [phone] 12/15/2024 6:45 EST Treatment [facility] [place] [address] [place], [place] [address] [phone] Carlota Jin MD 1 [facility], [facility] 2 [place] [phone] 12/18/2024 6:45 EST Treatment [facility] [place] [address] [place], [place] [phone] Carlota Jin MD 1 [facility][1]ab, [facility] 2 [place] [phone] 12/20/2024 6:45 EST Treatment [facility] [place] [address] [place], [place] [phone] Carlota Jin MD 1 [facility], [facility] 2 [place] [phone] 12/22/2024 6:45 EST Treatment [facility] [place] [address] [place], [place] [id number] Carlota Jin MD 1 [facility], [facility] 2 [place] [phone] 12/25/2024 6:45 EST Treatment [facility] [place] [address] [place], [place] [phone] Carlota Jin MD 1 [facility], [facility] 2 [place] [phone] 12/27/2024 6:45 EST Treatment [facility] [place] [address] [place], [place] [phone] Carlota Jin MD 1 [facility], [facility] 2 [place] [phone] 12/29/2024 6:45 EST Treatment [facility] [place] [address] [place], [place] [phone] Carlota Jin MD 1 [facility], [address] [phone] 01/01/2025 6:45 EDT Treatment [facility] [place] [address] [place], [place] [phone] Carlota Jin MD 1 [facility], [facility] 2 [place] [phone] 01/03/2025 6:45 EDT Treatment [facility] [place] [address] [place], [place] [phone] Carlota Jin MD 1 [facility], [facility] 2 [place] [phone] 01/05/2025 6:45 EDT Treatment [facility] [place] [address] [place], [place] [phone] Carlota Jin MD 1 [facility][1]ab, [facility] 2 [place] [phone] 01/08/2025 6:45 EDT Treatment [facility] [place] [address] [place], [place] [phone] Carlota Jin MD 1 [facility], [facility] 2 [place] [phone] 01/10/2025 6:45 EDT Treatment [facility] [place] [address] [place], [place] [phone] Carlota Jin MD 1 [facility], [address] [phone] 01/12/2025 6:45 EDT Treatment [facility] [place] [address] [place] [address] Carlota Jin MD 1 [facility], [facility] 2 [place] [phone] 01/15/2025 6:45 EDT Treatment [facility] [place] [address] [place], [place] [phone] Carlota Jin MD 1 [facility], [facility] 2 [place] [phone] 01/17/2025 6:45 EDT Treatment [facility] [place] [address] [place], [place] [phone] Carlota Jin MD 1 [facility], [facility] 2 [place] [phone] 01/19/2025 6:45 EDT Treatment [facility] [place] [address] [place], [place] [phone] Carlota Jin MD 1 [facility], [address] [phone] 01/22/2025 6:45 EDT Treatment [facility] [place] [address] [place], [place] [phone] Carlota Jin MD 1 [facility], [address] [phone] 01/24/2025 6:45 EDT Treatment [facility] [place] [address] [place], [place] [phone] Carlota Jin MD 1 [facility], [address] [phone] 01/26/2025 6:45 EDT Treatment [facility] [place] [address] [place], [place] [phone] Carlota Jin MD 1 [facility], [address] [phone] 01/29/2025 6:45 EDT Treatment [facility] [place] [address] [place], [place] [phone] Carlota Jin MD 1 [facility][1]ab, Level 2 [place] [phone] 01/31/2025 6:45 EDT Treatment [facility] [place] [address] [place], [place] [address] Carlota Jin MD 1 [facility][1]ab, [facility] 2 [place] [phone] 02/02/2025 6:45 EDT Treatment [facility] [place] [address] [place], [place] [phone] Carlota Jin MD 1 [facility], [facility] 2 [place] [phone] 02/05/2025 6:45 EDT Treatment [facility] [place] [address] [place], [place] [phone] Carlota Jin MD 1 [facility][1]ab, [facility] 2 [place] [phone] 02/07/2025 6:45 EDT Treatment [facility] [address] [place], [place] [phone] Carlota Jin MD 1 [facility][1]ab, [facility] 2 [place] [phone] 02/09/2025 6:45 EDT Treatment [facility] [address] [place], [place] [phone] Carlota Jin MD 1 [facility][1]ab, [facility] 2 [place] [phone] 02/12/2025 6:45 EDT Treatment [facility] [place] [address] [place], [place] [phone] Carlota Jin MD [address] [phone] 02/14/2025 6:45 EDT Treatment [facility] [place] [address] [place], [place] [phone] Carlota Jin MD [address] [place] [phone] 02/16/2025 6:45 EDT Treatment [facility] [address] [place], [place] [phone] Carlota Jin MD [address] [place] [phone] 02/19/2025 6:45 EDT Treatment [facility] [place] [address] [place], [place] [phone] Carlota Jin MD [address] [place] [phone] 02/21/2025 6:45 EDT Treatment [facility] [address] [place], [place] [phone] Carlota Jin MD [address] [place] [phone] documented as of this encounter Visit Diagnoses Not on filedocumented in this encounter Discontinued Medications Medication Sig Discontinue Reason Start Date End Da te sevelamer hydrochloride (RENAGEL) 800 mg tablet Take 2 Tablets by mouth 3 times daily with meals. Reorder 05/01/2024 documented as of this encounter Care Teams Anvil Worker Relationship Specialty Start Date End Date Ken Greer MD [address] [place] [address] PCP - General 07/07/23 documented as of this encounter
--- OUTSIDE RECORDS SUMMARY | 2024-12-05 12:04 | XMS_ITS | Encounter Summary ---
Author Organization [facility] Address [address] [place] [address] Care Team Providers Care Swage Tender Name Role Phone Ken Greer MD Primary Care Provider [phone] Reason for Visit * Episode Based Medications (Routine) - New Request Specialty Diagnoses / Procedures Referred By Nader pena Referred To Contact Diagnoses ESRD (end stage renal disease) ([facility]) Carlota Jin MD [address] [place] [phone] Phone: tel: fax: [facility] Dialysi - [place] [address] [place] [address] Phone: tel: fax: Referral ID Status Reason Start Date Expiration Date V isits Requested Visits Authorized [id number] New Request 03/17/2024 1 1 Encounter Details Date Type Department Care Team (Latest Contact Info) Description 04/19/2024 6:45 EDT Treatment [facility] [address] [place], [place] [phone] Carlota Jin MD [address] [place] [phone] ESRD (end stage renal disease) ([facility]) (Primary Dx); Anemia of chronic renal failure, unspecified CKD stage; Hypoalbuminemia; Secondary hyperparathyroidism ([facility]) Social History Tobacco Use Types Packs/Day [...] - Temperature - - Respiratory Rate 16 04/19/2024 0628 EDT Oxygen Saturation - - Inhaled Oxygen Concentration - - Weight 83.6 kg (184 lb 4.9 oz) 04/19/2024 0628 E DT Height - - Body Mass Index 26.44 12/20/2023 2202 EST documented in this encounter [...] Flowsheet Note - Keila Vizcarra RN - 04/19/2024 1120 EDT 04/19/24 1044 Post-Hemodialysis Assessment Total Blood Processed (L) 88.9 Liters On Line Clearance: spKt/V 1.66 spKt/V Dialyzer Clearance Lightly streaked Treatment UFR (ml:kg:hr) 11.58 ml:kg:hr Fluid Removed (L) 4.1 L Post-Dialysis Scale Weight 98.1 kg (216 lb 4.3 oz) Wheelchair Weight 18.2 kg (40 lb 2 oz) Prosthesis Weight 0 kg (0 lb) Post-Treatment Weight (kg) 79.9 Treatment Weight Change (kg) 3.7 kg Day Target Weight (kg) 80 Post Sitting/Lying BP 179/88 Post Sitting/Lying pulse 78 Temp 36.7 ??C (98.1 ??F) Temp src Temporal Minutes Short -240 Post access assessment Bruit present: Yes Thrill Present AVF/AFG Hemostasis achieved Yes Note Patient held for 10mins with blue clamps Orientation Alert and Oriented x3 Yes Time Yes Place Yes Person Yes Cooperative Yes Disoriented No Discharge Ambulation Methods Departs via w/c Wrap up items Patient Response to Treatment Tolerated treatment well. Removed 4100 mL UF goal without difficulty. Comments No issues during treatment. No concerns voiced post treatment. * Dialysis Rounding - Skye Gomez NP - 04/19/2024 0645 EDT Dialysis Provider's Routine Assessment Gerson Becky Bruner was seen and examined as appropriate during Dialysis. Pertinent lab results were reviewed. Changes since last visit: None Changes to current prescriptions/orders: None Skye Gomez NP documented in this encounter Plan of Treatment Upcoming Encounters Date Type Department Care Team (Late st Contact Info) Description 12/06/2024 6:45 EST Treatment [facility] Dialysi - [place] [address] [place], [place] [address] Carlota Jin MD 1 [facility], [facility] [address] [place] [phone] 12/08/2024 6:45 EST Treatment [facility] Dialysi - [place] [address] [place], [place] [phone] Carlota Jin MD 1 [facility], [facility] [address] [place] [phone] 12/11/2024 6:45 EST Treatment [facility] - [place] [address] [place], [place] [phone] Carlota Jin MD 1 [facility], [facility] [address] [place] [phone] 12/13/2024 6:45 EST Treatment [facility] - [place] [address] [place], [place] [phone] Carlota Jin MD 1 [facility], [facility] [address] [place] [phone] 12/15/2024 6:45 EST Treatment [facility] - [place] [address] [place], [place] [phone] Carlota Jin MD 1 [facility], [facility] [address] [place] [phone] 12/18/2024 6:45 EST Treatment [facility] - [place] [address] [place], [place] [phone] Carlota Jin MD 1 [facility], [facility] [address] [place] [phone] 12/20/2024 6:45 EST Treatment [facility] D[facility] - [place] [address] [place], [place] [id number] Carlota Jin MD 1 [facility], [facility] [address] [place] [phone] 12/22/2024 6:45 EST Treatment [facility] - [place] [address] [place], [place] [phone] Carlota Jin MD 1 [facility], [facility] [address] [place] [phone] 12/25/2024 6:45 EST Treatment [facility] D[facility] - [place] [address] [place], [place] [phone] Carlota Jin MD 1 [facility], [facility] [address] [place] [phone] 12/27/2024 6:45 EST Treatment [facility] D[facility] - [place] [address] [place], [place] [phone] Carlota Jin MD 1 [facility], [facility] [address] [place] [phone] 12/29/2024 6:45 EST Treatment [facility] Dialysi [place] [address] [place], [place] [phone] Carlota Jin MD 1 [facility], [facility] [address] [place] [phone] 01/01/2025 6:45 EDT Treatment [facility] D[facility]ys[facility] - [place] [address] [place], [place] [phone] Carlota Jin MD 1 [facility], [facility] [address] [place] [phone] 01/03/2025 6:45 EDT Treatment [facility] - [place] [address] [place] [address] Carlota Jin MD 1 [facility], [facility] [address] [place] [phone] 01/05/2025 6:45 EDT Treatment [facility] - [place] [address] [place] [address] Carlota Jin MD 1 [facility], [facility] [address] [place] [phone] 01/08/2025 6:45 EDT Treatment [facility] - [place] [address] [place] [address] Carlota Jin MD 1 [facility], [facility] [address] [place] [phone] 01/10/2025 6:45 EDT Treatment [facility] - [place] [address] [place] [address] Carlota Jin MD 1 [facility], [facility] [address] [place] [phone] 01/12/2025 6:45 EDT Treatment [facility] - [place] [address] [place], [place] [phone] Carlota Jin MD 1 [facility], [facility] [address] [place] [phone] 01/15/2025 6:45 EDT Treatment [facility] D[facility] - [place] [address] [place], [place] [address] Carlota Jin MD 1 [facility], [facility] [address] [place] [phone] 01/17/2025 6:45 EDT Treatment [facility] D[facility] - [place] [address] [place], [place] [phone] Carlota Jin MD 1 [facility], [address] [phone] 01/19/2025 6:45 EDT Treatment [facility] Dial[facility] - [place] [address] [place], [place] [phone] Carlota Jin MD 1 [facility], [facility] [address] [place] [phone] 01/22/2025 6:45 EDT Treatment [facility] D[facility] - [place] [address] [place], [place] [address] Carlota Jin MD 1 [facility], [facility] [address] [place] [phone] 01/24/2025 6:45 EDT Treatment [facility] D[facility]ysi - [place] [address] [place], [place] [phone] Carlota Jin MD 1 [facility], [facility] [address] [place] [phone] 01/26/2025 6:45 EDT Treatment [facility] D[facility] - [place] [address] [place], [place] [address] Carlota Jin MD 1 [facility], [facility] [address] [place] [phone] 01/29/2025 6:45 EDT Treatment [facility] D[facility] - [place] [address] [place], [place] [phone] Carlota Jin MD 1 [facility], [address] [phone] 01/31/2025 6:45 EDT Treatment [facility] Dial[facility] - [place] [address] [place], [place] [phone] Carlota Jin MD 1 [facility], [address] [phone] 02/02/2025 6:45 EDT Treatment [facility] Dial[facility] - [place] [address] [place], [place] [phone] Carlota Jin MD [address] [phone] 02/05/2025 6:45 EDT Treatment [facility] D[facility] - [place] [address] [place], [place] [phone] Carlota Jin MD [address] [phone] 02/07/2025 6:45 EDT Treatment [facility] D[facility] - [place] [address] [place], [place] [phone] Carlota Jin MD 1 [facility], [facility] [address] [place] [phone] 02/09/2025 6:45 EDT Treatment [facility] - [place] [address] [place], [place] [address] Carlota Jin MD 1 [facility], [facility] [address] [place] [phone] 02/12/2025 6:45 EDT Treatment [facility] D[facility] - [place] [address] [place], [place] [phone] Carlota Jin MD 1 [facility], [facility] [address] [place] [phone] 02/14/2025 6:45 EDT Treatment [facility] Dial[facility]i - [place] [address] [place], [place] [phone] Carlota Jin MD 1 [facility], [address] [phone] 02/16/2025 6:45 EDT Treatment [facility] Dialysi - [place] [address] [place] [address] Carlota Jin MD 1 [facility], [facility] [address] [place] [phone] 02/19/2025 6:45 EDT Treatment [facility] Dialysi [place] [address] [place], [place] [phone] Carlota Jin MD 1 [facility], [facility] [address] [place] [phone] 02/21/2025 6:45 EDT Treatment [facility] Dialysi - [place] [address] [place], [place] [address] Carlota Jin MD 1 [facility], Level [address] [place] [phone] documented as of this encounter Procedures Procedure Name Priority Date/Time Associated Diagnosis Comments COMPLETE BLOOD COUNT Routine 04/19/2024 6:34 EDT ESRD (end stage renal disease) ([facility]) POTASSIUM Routine 04/19/2024 6:34 EDT ESRD (end stage renal disease) ([facility]) HEMODIALYSIS Routine 04/19/2024 6:28 EDT ESRD (end stage renal disease) ([facility]) documented in this encounter Results * (ABNORMAL) POTASSIUM (04/19/2024 6:34 EDT) Potassium 6.2(HH) 3.5 - 5.0 mmol/L 04/19/2024 21:37 EDT [facility] Blood VENOUS BLOOD / Unknown Venipuncture / Unknown 04/19/2024 6:34 EDT 04/19/2024 6:34 EDT us Carlota Jin MD CHEMISTRY & BLOOD GAS ORD ERABLES Final Result [facility] [address] [place] [phone] * (ABNORMAL) COMPLETE BLOOD COUNT (04/19/2024 6:34 EDT) WBC 11.73(H) 4.00 - 10.40 K/cmm 04/19/2024 21:30 EDT [facility] RBC 3.32(L) 4.36 - 5.78 M/cmm 04/19/2024 21:30 EDT [facility] Hemoglobin 9.3(L) 13.8 - 17.3 g/dL 04/19/2024 21:30 T [facility] HCT 29.1(L) 39.5 - 50.2 % 04/19/2024 21:30 [facility] MCV 88 81 - 95 fL 04/19/2024 21:30 [facility] MCH 28.0 27.6 - 33.0 pg 04/19/2024 21:30 [facility] MCHC 32.0(L) 32.8 - 36.4 g/dL 04/19/2024 21:30 [facility] RDW-CV 15.6(H) <14.2 % 04/19/2024 21:30 [facility] RDW-SD 49.9(H) <46.0 fl 04/19/2024 21:30 [facility] PLT 364 141 - 377 K/cmm 04/19/2024 21:30 [facility] MPV 11.4 9.5 - 12.7 fL 04/19/2024 21:30 [facility] Blood VENOUS BLOOD / Unknown Venipuncture / Unknown 04/19/2024 6:34 EDT 04/19/2024 6:34 EDT us Skye Gomez NP HEMATOLOGY & PF4 ORDERABLES Final Result Performing Organization Address City/State/[facility] Co de Phone Number [facility] [address] [place] [address] documented in this encounter Visit Diagnoses Diagnosis ESRD (end stage renal disease) ([facility])- Primary End stage renal disease Anemia of chronic renal failure, unspecified CKD stage Hypoalbuminemia Other disorders of plasma protein metabolism Secondary hyperparathyroidism ([facility]) Secondary hyperparathyroidism (of renal origin) documented in this encounter Administered Medications Inactive Administered Medications - up to 3 most recent administrations Medication Order MAR Action Action Date Dose Rate Site calcium carbonate (TUMS) tablet 500 mg (200 mg elemental calcium) 2 Tablet 2 Tablet, oral, ONCE IN DIALYSIS, 1 dose, On Wed04/19/24 at 0645, Routine, DialysisIndications:ESRD (end stage renal disease) ([facility]),Secondary hyperparathyroidism ([facility]) Given 04/19/2024 6:56 EDT 2 Tablets epoetin ken (EPOGEN) 20,000 unit/2 mL injection 8,000 Units 8,000 Units, intravenous, ONCE IN DIALYSIS, 1 dose, On Wed04/19/24 at 0645, Routine, DialysisIndications:ESRD (end stage renal disease) ([facility]),Anemia of chronic renal failure, unspecified CKD stage Given 04/19/2024 6:55 EDT 8,000 Units heparin injection 7,000 Units 7,000 Units, intravenous, ONCE IN DIALYSIS, 1 dose, On Wed04/19/24 at 0645, Routine, Dialysis, Now x1 bolus 3400 units to be given at the beginning of dialysis 900 units/hour to be given over the course of dialysis (7000 units total). Stop 1 hour prior to end of treatment. To be administered per Policy [id number].Indications:ESRD (end stage renal disease) ([facility]) Given 04/19/2024 6:55 EDT 7,000 Units LiquaCel liquid protein liquid 30 mL 30 mL, oral, ONCE IN DIALYSIS, 1 dose, On Wed04/19/24 at 0645, Patient's flavor preference: either, RoutineIndications:ESRD (end stage renal disease) ([facility]),Hypoalbuminemia Given 04/19/2024 6:56 EDT 30 mL documented in this encounter Orders Dialysis Count Last Ordered Date First Orde red Date HEMODIALYSIS 1 04/19/2024 documented in this encounter Care Teams Swage Tender Relationship Specialty Start Date End Date Ken Greer MD [facility] [place] [address] PCP - General 07/07/23 documented as of this encounter
--- OUTSIDE RECORDS SUMMARY | 2024-12-05 12:04 | XMS_ITS | Encounter Summary ---
Author Organization [facility] Address [address] [place] [address] Care Team Providers Care Agriscience Technology Instructor Name Role Phone Ken Greer MD Primary Care Provider [phone] Reason for Visit * Episode Based Medications (Routine) - New Request Specialty Diagnoses / Procedures Referred By Nader pena Referred To Contact Diagnoses ESRD (end stage renal disease) ([facility]) Carlota Jin MD [address] [place] [phone] Phone: tel: fax: [facility] [place] [address] [place] [address] Phone: tel: fax: Referral ID Status Reason Start Date Expiration Date V isits Requested Visits Authorized [id number] New Request 03/17/2024 1 1 Encounter Details Date Type Department Care Team (Latest Contact Info) Description 05/03/2024 6:45 EDT Treatment [facility] [address] [place], [place] [phone] Carlota Jin MD [address] [place] [phone] ESRD (end stage renal disease) ([facility]) (Primary Dx); Anemia of chronic renal failure, unspecified CKD stage; Hypoalbuminemia; Secondary hyperparathyroidism ([facility]) Social History [...] - Temperature - - Respiratory Rate 16 05/03/2024 0634 EDT Oxygen Saturation - - Inhaled Oxygen Concentration - - Weight 81.9 kg (180 lb 8.9 oz) 05/03/2024 0634 E DT Height - - Body Mass [...] Flowsheet Note - Keila Vizcarra RN - 05/03/2024 1150 EDT 05/03/24 1048 Post-Hemodialysis Assessment Total Blood Processed (L) 91.69 Liters On Line Clearance: spKt/V 1.58 spKt/V Dialyzer Clearance Lightly streaked Treatment UFR (ml:kg:hr) 10.83 ml:kg:hr Final Critline Profile (%/hr) -2.73 Final Profile Profile A Critline refill Not done Fluid Removed (L) 3.82 L Post-Dialysis Scale Weight 94.8 kg (208 lb 15.9 oz) Wheelchair Weight 16.3 kg (35 lb 15 oz) Prosthesis Weight 0 kg (0 lb) Post-Treatment Weight (kg) 78.5 Treatment Weight Change (kg) 3.4 kg Day Target Weight (kg) 78.4 Post Sitting/Lying BP 131/71 Post Sitting/Lying pulse 65 Temp 35.6 ??C (96.1 ??F) Temp src Temporal Minutes Short -240 Post access assessment Bruit present: Yes Thrill Present AVF/AFG Hemostasis achieved Yes Note Patient nheld for 10mins with blue clamps Orientation Alert and Oriented x3 Yes Time Yes Place Yes Person Yes Cooperative Yes Disoriented No Discharge Ambulation Methods Departs via w/c Wrap up items Patient Response to Treatment Removed 3820mL of oritinal 4000 mL UF goal. UF goal adjusted after patient reported cramping. Goal adjusted and treatment resumed. Comments No concerns voiced post treatment. documented in this encounter Plan of Treatment Upcoming Encounters Date Type Department Care Team (Late st Contact Info) Description 12/06/2024 6:45 EST Treatment [facility] - [place] [address] [place], [place] [phone] Carlota Jin MD 1 [facility], Level [address] [place] [phone] 12/08/2024 6:45 EST Treatment [facility] - [place] [address] [place], [place] [id number] Carlota Jin MD 1 [facility], [facility] 2 [place] [phone] 12/11/2024 6:45 EST Treatment [facility] - [place] [address] [place], [place] [phone] Carlota Jin MD 1 [facility], [facility] 2 [place] [phone] 12/13/2024 6:45 EST Treatment [facility] - [place] [address] [place], [place] [phone] Carlota Jin MD 1 [facility], [facility] 2 [place] [phone] 12/15/2024 6:45 EST Treatment [facility] - [place] [address] [place], [place] [phone] Carlota Jin MD 1 [facility], [address] [phone] 12/18/2024 6:45 EST Treatment [facility] - [place] [address] [place], [place] [phone] Carlota Jin MD 1 [facility], [facility] 2 [place] [phone] 12/20/2024 6:45 EST Treatment [facility] - [place] [address] [place], [place] [phone] Carlota Jin MD 1 [facility], [facility] 2 [place] [phone] 12/22/2024 6:45 EST Treatment [facility] - [place] [address] [place], [place] [phone] Carlota Jin MD 1 [facility], [facility] 2 [place] [phone] 12/25/2024 6:45 EST Treatment [facility] - [place] [address] [place], [place] [phone] Carlota Jin MD 1 [facility], [facility] 2 [place] [phone] 12/27/2024 6:45 EST Treatment [facility] [address] [place], [place] [phone] Carlota Jin MD 1 [facility], [facility] 2 [place] [phone] 12/29/2024 6:45 EST Treatment [facility] [address] [place], [place] [phone] Carlota Jin MD 1 [facility], [facility] 2 [place] [phone] 01/01/2025 6:45 EDT Treatment [facility] [address] [place], [place] [phone] Carlota Jin MD 1 [facility], [facility] 2 [place] [phone] 01/03/2025 6:45 EDT Treatment [facility] - [place] [address] [place], [place] [phone] Carlota Jin MD 1 [facility], [facility] 2 [place] [phone] 01/05/2025 6:45 EDT Treatment [facility] - [place] [address] [place], [place] [phone] Carlota Jin MD 1 [facility], [address] [phone] 01/08/2025 6:45 EDT Treatment [facility] - [place] [address] [place], [place] [phone] Carlota Jin MD 1 [facility], [address] [phone] 01/10/2025 6:45 EDT Treatment [facility] - [place] [address] [place], [place] [phone] Carlota Jin MD 1 [facility], [address] [phone] 01/12/2025 6:45 EDT Treatment [facility] - [place] [address] [place], [place] [phone] Carlota Jin MD 1 [facility], [facility] 2 [place] [phone] 01/15/2025 6:45 EDT Treatment [facility] - [place] [address] [place], [place] [phone] Carlota Jin MD 1 [facility], [facility] 2 [place] [phone] 01/17/2025 6:45 EDT Treatment [facility] - [place] [address] [place], [place] [address] Carlota Jin MD 1 [facility], [facility] 2 [place] [phone] 01/19/2025 6:45 EDT Treatment [facility] - [place] [address] [place], [place] [phone] Carlota Jin MD 1 [facility], [facility] 2 [place] [phone] 01/22/2025 6:45 EDT Treatment [facility] - [place] [address] [place], [place] [address] Carltoa Jin MD 1 [facility], [facility] 2 [place] [phone] 01/24/2025 6:45 EDT Treatment [facility] - [place] [address] [place] [address] Carlota Jin MD 1 [facility], [facility] 2 [place] [phone] 01/26/2025 6:45 EDT Treatment [facility] - [place] [address] [place], [place] [phone] Carlota Jin MD 1 [facility], [facility] 2 [place] [phone] 01/29/2025 6:45 EDT Treatment [facility] - [place] [address] [place], [place] [phone] Carloat Jin MD 1 [facility], [facility] 2 [place] [phone] 01/31/2025 6:45 EDT Treatment [facility] - [place] [address] [place], [place] [phone] Carlota Jin MD 1 [facility], [address] [phone] 02/02/2025 6:45 EDT Treatment [facility] - [place] [address] [place], [place] [phone] Carlota Jin MD [address] [place] [address], [address] [phone] 02/05/2025 6:45 EDT Treatment [facility] - [place] [address] [place], [place] [phone] Carlota Jin MD [address] [place] [address], [facility] 2 [place] [phone] 02/07/2025 6:45 EDT Treatment [facility] - [place] [address] [place], [place] [phone] Carlota Jin MD 1 [facility], [facility] 2 [place] [phone] 02/09/2025 6:45 EDT Treatment [facility] - [place] [address] [place], [place] [phone] Carlota Jin MD 1 [facility], [facility] 2 [place] [phone] 02/12/2025 6:45 EDT Treatment [facility] - [place] [address] [place], [place] [phone] Carlota Jin MD 1 [facility], [facility] 2 [place] [phone] 02/14/2025 6:45 EDT Treatment [facility] - [place] [address] [place], [place] [phone] Carlota Jin MD 1 [facility], [facility] 2 [place] [phone] 02/16/2025 6:45 EDT Treatment [facility] - [place] [address] [place], [place] [phone] Carlota Jin MD 1 [facility], [facility] 2 [place] [phone] 02/19/2025 6:45 EDT Treatment [facility] [address] [place], [place] [phone] Carlota Jin MD 1 [facility], [facility] 2 [place] [phone] 02/21/2025 6:45 EDT Treatment [facility] [place] [address] [place], [place] [phone] Carlota Jin MD 1 [facility], [facility] 2 [place] [phone] documented as of this encounter Procedures Procedure Name Priority Date/Time Associated Diagnosis Comments HEMODIALYSIS Routine 05/03/2024 6:34 EDT ESRD (end stage renal disease) ([facility]) COMPLETE BLOOD COUNT Routine 05/03/2024 6:34 EDT ESRD (end stage renal disease) ([facility]) documented in this encounter Results * (ABNORMAL) COMPLETE BLOOD COUNT (05/03/2024 6:34 EDT) WBC 11.43(H) 4.00 - 10.40 K/cmm 05/03/2024 22:35 [facility] RBC 2.84(L) 4.36 - 5.78 M/cmm 05/03/2024 22:35 [facility] Hemoglobin 7.7(L) 13.8 - 17.3 g/dL 05/03/2024 22:35 [facility] HCT 25.6(L) 39.5 - 50.2 % 05/03/2024 22:35 [facility] MCV 90 81 - 95 fL 05/03/2024 22:35 [facility] MCH 27.1(L) 27.6 - 33.0 pg 05/03/2024 22:35 [facility] MCHC 30.1(L) 32.8 - 36.4 g/dL 05/03/2024 22:35 [facility] RDW-CV 17.2(H) <14.2 % 05/03/2024 22:35 [facility] RDW-SD 56.3(H) <46.0 fl 05/03/2024 22:35 [facility] PLT 478(H) 141 - 377 K/cmm 05/03/2024 22:35 [facility] MPV 11.6 9.5 - 12.7 fL 05/03/2024 22:35 [facility] Blood VENOUS BLOOD / Unknown Venipuncture / Unknown 05/03/2024 6:34 EDT 05/03/2024 6:34 EDT Skye Gomez NP HEMATOLOGY & PF4 ORDERABLES Final Result [facility] [address] [place] [address] documented in this encounter Visit Diagnoses Diagnosis ESRD (end stage renal disease) ([facility])- Primary End stage renal disease Anemia of chronic renal failure, unspecified CKD stage Hypoalbuminemia Other disorders of plasma protein metabolism Secondary hyperparathyroidism ([facility]) Secondary hyperparathyroidism (of renal origin) documented in this encounter Administered Medications Inactive Administered Medications - up to 3 most recent administrations Medication Order MAR Action Action Date Dose Rate Site calcium carbonate (TUMS) tablet 500 mg (200 mg elemental calcium) 2 Tablet 2 Tablet, oral, ONCE IN DIALYSIS, 1 dose, On Wed05/03/24 at 0700, Routine, DialysisIndications:ESRD (end stage renal disease) ([facility]),Secondary hyperparathyroidism ([facility]) Given 05/03/2024 6:52 EDT 2 Tablets epoetin ken (EPOGEN) 20,000 unit/2 mL injection 8,000 Units 8,000 Units, intravenous, ONCE IN DIALYSIS, 1 dose, On Wed05/03/24 at 0700, Routine, DialysisIndications:ESRD (end stage renal disease) ([facility]),Anemia of chronic renal failure, unspecified CKD stage Given 05/03/2024 6:52 EDT 8,000 Units heparin injection 7,000 Units 7,000 Units, intravenous, ONCE IN DIALYSIS, 1 dose, On Wed05/03/24 at 0700, Routine, Dialysis, Now x1 bolus 3400 units to be given at the beginning of dialysis 900 units/hour to be given over the course of dialysis (7000 units total). Stop 1 hour prior to end of treatment. To be administered per Policy [id number].Indications:ESRD (end stage renal disease) ([facility]) Given 05/03/2024 6:52 EDT 7,000 Units LiquaCel liquid protein liquid 30 mL 30 mL, oral, ONCE IN DIALYSIS, 1 dose, On Wed05/03/24 at 0700, Patient's flavor preference: either, RoutineIndications:ESRD (end stage renal disease) ([facility]),Hypoalbuminemia Given 05/03/2024 6:52 EDT 30 mL documented in this encounter Orders Dialysis Count Last Ordered Date First Orde red Date HEMODIALYSIS 1 05/03/2024 documented in this encounter Care Teams Agriscience Technology Instructor Relationship Specialty Start Date End Date Ken Greer MD [facility] [place] [address] [place] [address] PCP - General 07/07/23 documented as of this encounter
--- OUTSIDE RECORDS SUMMARY | 2024-12-05 12:04 | XMS_ITS | Encounter Summary ---
Author Organization [facility] Address [address] [place] [address] Care Team Providers Care Field Pipe Lines Supervisor Name Role Phone Ken Greer MD Primary Care Provider [phone] Reason for Visit * Episode Based Medications (Routine) - New Request Specialty Diagnoses / Procedures Referred By Nader pena Referred To Contact Diagnoses ESRD (end stage renal disease) ([facility]) Carlota Jin MD [address] [place] [phone] Phone: tel: fax: [facility] [place] [address] [place] [address] Phone: tel: fax: Referral ID Status Reason Start Date Expiration Date V isits Requested Visits Authorized [id number] New Request 03/17/2024 1 1 Encounter Details Date Type Department Care Team (Latest Contact Info) Description 05/10/2024 6:45 EDT [facility] [address] [place], [place] [phone] Carlota Jin MD [address] [place] [phone] ESRD (end stage renal disease) ([facility]) (Primary Dx); Anemia of chronic renal failure, unspecified CKD stage; Hypoalbuminemia; Secondary hyperparathyroidism ([facility]) Social History Tobacco Use [...] - Temperature - - Respiratory Rate 18 05/10/2024 0623 EDT Oxygen Saturation - - Inhaled Oxygen Concentration - - Weight 80.1 kg (176 lb 9.4 oz) 05/10/2024 0628 E DT Height - - Body Mass Index 25.34 12/20/2023 2202 EST documented in this encounter [...] Flowsheet Note - Keila Vizcarra RN - 05/10/2024 1146 EDT 05/10/24 1045 Post-Hemodialysis Assessment Total Blood Processed (L) 91.49 Liters On Line Clearance: spKt/V 1.65 spKt/V Dialyzer Clearance Lightly streaked Treatment UFR (ml:kg:hr) 7.66 ml:kg:hr Critline refill Not done Fluid Removed (L) 2.6 L Post-Dialysis Scale Weight 96.1 kg (211 lb 13.8 oz) Wheelchair Weight 18.4 kg (40 lb 9 oz) Prosthesis Weight 0 kg (0 lb) Post-Treatment Weight (kg) 77.7 Treatment Weight Change (kg) 2.4 kg Day Target Weight (kg) 78 Post Sitting/Lying BP 164/82 Post Sitting/Lying pulse 70 Temp 36 ??C (96.8 ??F) Temp src Temporal Minutes Short -242 Post access assessment AVF/AFG Hemostasis achieved Yes Note 10 -12 min hold w/clamps Orientation Alert and Oriented x3 Yes Time Yes Place Yes Person Yes Cooperative Yes Disoriented No Discharge Ambulation Methods Departs via w/c;With patient transport Wrap up items Patient Response to Treatment Tolerated treatment well. Removed 2600mL UF goal without difficulty. Comments No issues during treatment. No concerns voiced post treatment. * Dialysis Rounding - Skye Gomez NP - 05/10/2024 0645 EDT Dialysis Provider's Routine Assessment Gerson Becky Bruner was seen and examined as appropriate during Dialysis. Pertinent lab results were reviewed. Changes since last visit: None Changes to current prescriptions/orders: None Skye Gomez NP documented in this encounter Plan of Treatment Upcoming Encounters Date Type Department Care Team (Late st Contact Info) Description 12/06/2024 6:45 EST Treatment [facility] [place] [address] [place], [place] [id number] Carlota Jin MD [address] [facility] [place], [facility] [address] [place] [phone] 12/08/2024 6:45 EST Treatment [facility] [place] [address] [place], [place] [id number] Carlota Jin MD [address] [facility], [facility] [address] [place] [phone] 12/11/2024 6:45 EST Treatment [facility] [place] [address] [place], [place] [id number] Carlota Jin MD [address] [facility], [facility] [address] [place] [phone] 12/13/2024 6:45 EST Treatment [facility] [place] [address] [place], [place] [id number] Carlota Jin MD [address] [facility], [facility] [address] [place] [phone] 12/15/2024 6:45 EST Treatment [facility] [place] [address] [place], [place] [phone] Carlota Jin MD [address] [facility], [facility] [address] [place] [phone] 12/18/2024 6:45 EST Treatment [facility] [place] [address] [place], [place] [phone] Carlota Jin MD [address] [facility], [facility] [address] [place] [phone] 12/20/2024 6:45 EST Treatment [facility] [place] [address] [place], [place] [phone] Carlota Jin MD [address] [facility], [facility] [address] [place] [phone] 12/22/2024 6:45 EST Treatment [facility] [place] [address] [place], [place] [phone] Carlota Jin MD [address] [facility], [facility] [address] [place] [phone] 12/25/2024 6:45 EST Treatment [facility] [place] [address] [place], [place] [id number] Carlota Jin MD [address] [facility], [facility] [address] [place] [phone] 12/27/2024 6:45 EST Treatment [facility] [place] [address] [place], [place] [phone] Carlota Jin MD [address] [facility], [facility] [address] [place] [phone] 12/29/2024 6:45 EST Treatment [facility] [place] [address] [place], [place] [phone] Carlota Jin MD [address] [facility], [facility] [address] [place] [phone] 01/01/2025 6:45 EDT Treatment [facility] [place] [address] [place], [place] [phone] Carlota Jin MD [address] [facility], [facility] [address] [place] [phone] 01/03/2025 6:45 EDT Treatment [facility] [place] [address] [place] [address] Carlota Jin MD [address] [facility] [place], [facility] [address] [place] [phone] 01/05/2025 6:45 EDT Treatment [facility] [place] [address] [place] [address] Carlota Jin MD [address] [facility], [facility] [address] [place] [phone] 01/08/2025 6:45 EDT Treatment [facility] [place] [address] [place] [address] Carlota Jin MD [address] [facility], [facility] [address] [place] [phone] 01/10/2025 6:45 EDT Treatment [facility] [place] [address] [place] [address] Carlota Jin MD [address] [facility], [facility] [address] [place] [phone] 01/12/2025 6:45 EDT Treatment [facility] [place] [address] [place], [place] [id number] Carlota Jin MD [address] [facility], [facility] [address] [place] [phone] 01/15/2025 6:45 EDT Treatment [facility] [place] [address] [place], [place] [phone] Carlota Jin MD [address] [facility], [facility] [address] [place] [phone] 01/17/2025 6:45 EDT Treatment [facility] [place] [address] [place], [place] [phone] Carlota Jin MD [address] [facility], [address] [phone] 01/19/2025 6:45 EDT Treatment [facility] [place] [address] [place], [place] [phone] Carlota Jin MD [address] [facility], [facility] [address] [place] [phone] 01/22/2025 6:45 EDT Treatment [facility] [place] [address] [place], [place] [id number] Carlota Jin MD [address] [facility], [facility] [address] [place] [phone] 01/24/2025 6:45 EDT Treatment [facility] [place] [address] [place], [place] [id number] Carlota Jin MD [address] [facility], [facility] [address] [place] [phone] 01/26/2025 6:45 EDT Treatment [facility] [place] [address] [place], [place] [id number] Carlota Jin MD [address] [facility], [facility] [address] [place] [phone] 01/29/2025 6:45 EDT Treatment [facility] [place] [address] [place], [place] [phone] Carlota Jin MD [address] [facility], [address] [phone] 01/31/2025 6:45 EDT Treatment [facility] [place] [address] [place], [place] [id number] Carlota Jin MD [address] [facility], [address] [phone] 02/02/2025 6:45 EDT Treatment [facility] [place] [address] [place], [place] [id number] Carlota Jin MD [address] [phone] 02/05/2025 6:45 EDT Treatment [facility] [place] [address] [place], [place] [id number] Carlota Jin MD [address] [phone] 02/07/2025 6:45 EDT Treatment [facility] [place] [address] [place], [place] [phone] Carlota Jin MD [address] [facility], [facility] [address] [place] [phone] 02/09/2025 6:45 EDT Treatment [facility] [place] [address] [place], [place] [id number] Carlota Jin MD [address] [facility] [place], [facility] [address] [place] [phone] 02/12/2025 6:45 EDT Treatment [facility] [place] [address] [place], [place] [phone] Carlota Jin MD [address] [facility], [facility] [address] [place] [phone] 02/14/2025 6:45 EDT Treatment [facility] [place] [address] [place], [place] [id number] Carlota Jin MD [address] [facility], [address] [phone] 02/16/2025 6:45 EDT Treatment [facility] [place] [address] [place] [address] Carlota Jin MD [address] [facility], [facility] [address] [place] [phone] 02/19/2025 6:45 EDT Treatment [facility] [place] [address] [place], [place] [phone] Carlota Jin MD [address] [facility], [facility] [address] [place] [phone] 02/21/2025 6:45 EDT Treatment [facility] [place] [address] [place] [address] Carlota Jin MD [address] [facility] [place], [facility] [address] [place] [phone] documented as of this encounter Procedures Procedure Name Priority Date/Time Associated Diagnosis Comments COMPLETE BLOOD COUNT Routine 05/10/2024 6:36 EDT ESRD (end stage renal disease) ([facility]) HEMODIALYSIS Routine 05/10/2024 6:23 EDT ESRD (end stage renal disease) ([facility]) documented in this encounter Results * (ABNORMAL) COMPLETE BLOOD COUNT (05/10/2024 6:36 EDT) WBC 10.93(H) 4.00 - 10.40 K/cmm 05/10/2024 21:38 [facility] RBC 3.13(L) 4.36 - 5.78 M/cmm 05/10/2024 21:38 [facility] Hemoglobin 8.4(L) 13.8 - 17.3 g/dL 05/10/2024 21:38 [facility] HCT 27.8(L) 39.5 - 50.2 % 05/10/2024 21:38 [facility] MCV 89 81 - 95 fL 05/10/2024 21:38 [facility] MCH 26.8(L) 27.6 - 33.0 pg 05/10/2024 21:38 [facility] MCHC 30.2(L) 32.8 - 36.4 g/dL 05/10/2024 21:38 [facility] RDW-CV 17.1(H) <14.2 % 05/10/2024 21:38 [facility] RDW-SD 55.8(H) <46.0 fl 05/10/2024 21:38 [facility] PLT 359 141 - 377 K/cmm 05/10/2024 21:38 EDT [facility] MPV 12.0 9.5 - 12.7 fL 05/10/2024 21:38 EDT [facility] Blood VENOUS BLOOD / Unknown Venipuncture / Unknown 05/10/2024 6:36 EDT 05/10/2024 6:36 EDT Skye Gomez NP HEMATOLOGY & PF4 ORDERABLES Final Result [facility] [address] [place] [address] documented in this encounter Visit Diagnoses Diagnosis ESRD (end stage renal disease) ([facility])- Primary End stage renal disease Anemia of chronic renal failure, unspecified CKD stage Hypoalbuminemia Other disorders of plasma protein metabolism Secondary hyperparathyroidism ([facility]) Secondary hyperparathyroidism (of renal origin) documented in this encounter Administered Medications Inactive Administered Medications - up to 3 most recent administrations Medication Order MAR Action Action Date Dose Rate Site calcium carbonate (TUMS) tablet 500 mg (200 mg elemental calcium) 2 Tablet 2 Tablet, oral, ONCE IN DIALYSIS, 1 dose, On Wed05/10/24 at 0645, Routine, DialysisIndications:ESRD (end stage renal disease) ([facility]),Secondary hyperparathyroidism ([facility]) Given 05/10/2024 6:56 EDT 2 Tablets epoetin ken (EPOGEN) 20,000 unit/2 mL injection 10,000 Units 10,000 Units, intravenous, ONCE IN DIALYSIS, 1 dose, On Wed05/10/24 at 0645, Routine, DialysisIndications:ESRD (end stage renal disease) ([facility]),Anemia of chronic renal failure, unspecified CKD stage Given 05/10/2024 6:56 EDT 10,000 Units heparin injection 7,000 Units 7,000 Units, intravenous, ONCE IN DIALYSIS, 1 dose, On Wed05/10/24 at 0645, Routine, Dialysis, Now x1 bolus 3400 units to be given at the beginning of dialysis 900 units/hour to be given over the course of dialysis (7000 units total). Stop 1 hour prior to end of treatment. To be administered per Policy [id number].Indications:ESRD (end stage renal disease) ([facility]) Given 05/10/2024 6:56 EDT 7,000 Units LiquaCel liquid protein liquid 30 mL 30 mL, oral, ONCE IN DIALYSIS, 1 dose, On Wed05/10/24 at 0645, Patient's flavor preference: either, RoutineIndications:ESRD (end stage renal disease) ([facility]),Hypoalbuminemia Given 05/10/2024 6:56 EDT 30 mL documented in this encounter Orders Dialysis Count Last Ordered Date First Orde red Date HEMODIALYSIS 1 05/10/2024 documented in this encounter Care Teams Field Pipe Lines Supervisor Relationship Specialty Start Date End Date Ken Greer MD [address] [place] [address] PCP - General 07/07/23 documented as of this encounter
--- OUTSIDE RECORDS SUMMARY | 2024-12-05 12:05 | XMS_ITS | Encounter Summary ---
Author Organization [facility] Address [address] [place] [address] Care Team Providers Care Dairy Department Manager Name Role Phone Ken Greer MD Primary Care Provider [phone] Reason for Visit * Episode Based Medications (Routine) - New Request Specialty Diagnoses / Procedures Referred By Nader pena Referred To Contact Diagnoses ESRD (end stage renal disease) ([facility]) Carlota Jin MD [address] [place] [phone] Phone: tel: fax: [facility] [place] [address] [place] [address] Phone: tel: fax: Referral ID Status Reason Start Date Expiration Date V isits Requested Visits Authorized [id number] New Request 03/17/2024 1 1 Encounter Details Date Type Department Care Team (Latest Contact Info) Description 04/03/2024 6:45 EDT Treatment [facility] [address] [place], [place] [id number] Carlota Jin MD [address] [place] [phone] ESRD (end stage renal disease) ([facility]) (Primary Dx); Anemia of chronic renal failure, unspecified CKD stage; Hypoalbuminemia; Secondary hyperparathyroidism ([facility]) Social History Tobacco Use Types Packs/Day [...] - Temperature - - Respiratory Rate 16 04/03/2024 0620 EDT Oxygen Saturation - - Inhaled Oxygen Concentration - - Weight 85.2 kg (187 lb 13.3 oz) 04/03/2024 0624 EDT Height - - Body Mass Index 26.95 12/20/2023 2202 EST documented in this encounter [...] Flowsheet Note - Marcela Cox RN - 04/03/2024 1957 EDT 04/03/24 1040 Post-Hemodialysis Assessment Total Blood Processed (L) 89.83 Liters On Line Clearance: spKt/V 1.66 spKt/V Dialyzer Clearance Lightly streaked Treatment UFR (ml:kg:hr) 10.98 ml:kg:hr Final Critline Profile (%/hr) -0.62 Final Profile Profile A Critline refill Negative (H1: 27.2 H2: 27.0) Fluid Removed (L) 3 L Post-Dialysis Scale Weight 99.4 kg (219 lb 2.2 oz) Wheelchair Weight 17.8 kg (39 lb 3.9 oz) Prosthesis Weight 0 kg (0 lb) Post-Treatment Weight (kg) 81.6 Treatment Weight Change (kg) 3.6 kg Day Target Weight (kg) 82.7 Post Sitting/Lying BP 153/83 Post Sitting/Lying pulse 70 Temp 35.9 ??C (96.6 ??F) Temp src Temporal Minutes Short -241 [...] Description 12/06/2024 6:45 EST [facility] [place] [address] [place], [place] [id number] Carlota Jin MD [facility] [address] [place] [phone] 12/08/2024 6:45 EST Treatment [facility] [place] [address] [place], [place] [phone] Carlota Jin MD [facility], [facility] 2 [place] [phone] 12/11/2024 6:45 EST Treatment [facility] [place] [address] [place], [place] [phone] Carlota Jin MD 1 [facility], [facility] 2 [place] [phone] 12/13/2024 6:45 EST Treatment [facility] [place] [address] [place], [place] [phone] Carlota Jin MD 1 [facility], [facility] 2 [place] [phone] 12/15/2024 6:45 EST Treatment [facility] [place] [address] [place], [place] [phone] Carlota Jin MD 1 [facility], [address] [phone] 12/18/2024 6:45 EST Treatment [facility] [address] [place], [place] [phone] Carlota Jin MD 1 [facility], [facility] 2 [place] [phone] 12/20/2024 6:45 EST Treatment [facility] [address] [place], [place] [phone] Carlota Jin MD 1 [facility], [facility] 2 [place] [phone] 12/22/2024 6:45 EST Treatment [facility] [place] [address] [place], [place] [phone] Carlota Jin MD 1 [facility], [facility] 2 [place] [phone] 12/25/2024 6:45 EST Treatment [facility] [place] [address] [place], [place] [phone] Carlota Jin MD 1 [facility], [facility] 2 [place] [phone] 12/27/2024 6:45 EST Treatment [facility] [place] [address] [place], [place] [phone] Carlota Jin MD 1 [facility], [facility] 2 [place] [phone] 12/29/2024 6:45 EST Treatment [facility] [address] [place], [place] [phone] Carlota Jin MD 1 [facility], [facility] 2 [place] [phone] 01/01/2025 6:45 EDT Treatment [facility] [address] [place], [place] [phone] Carlota Jin MD 1 [facility], [facility] 2 [place] [phone] 01/03/2025 6:45 EDT Treatment [facility] [place] [address] [place], [place] [address] Carlota Jin MD 1 [facility], [facility] 2 [place] [phone] 01/05/2025 6:45 EDT Treatment [facility] [place] [address] [place], [place] [phone] Carlota Jin MD 1 [facility], [facility] 2 [place] [phone] 01/08/2025 6:45 EDT Treatment [facility] [place] [address] [place], [place] [phone] Carlota Jin MD 1 [facility], [facility] 2 [place] [phone] 01/10/2025 6:45 EDT Treatment [facility] [place] [address] [place], [place] [phone] Carlota Jin MD 1 [facility], [facility] 2 [place] [phone] 01/12/2025 6:45 EDT Treatment [facility] [place] [address] [place], [place] [phone] Carlota Jin MD 1 [facility], [facility] 2 [place] [phone] 01/15/2025 6:45 EDT Treatment [facility] [place] [address] [place], [place] [phone] Carlota Jin MD 1 [facility], [facility] 2 [place] [phone] 01/17/2025 6:45 EDT Treatment [facility] [place] [address] [place], [place] [phone] Carlota Jin MD 1 [facility], [facility] 2 [place] [phone] 01/19/2025 6:45 EDT Treatment [facility] [place] [address] [place], [place] [phone] Carlota Jin MD 1 [facility], [facility] 2 [place] [phone] 01/22/2025 6:45 EDT Treatment [facility] [place] [address] [place], [place] [phone] Carlota Jin MD 1 [facility], [facility] 2 [place] [phone] 01/24/2025 6:45 EDT Treatment [facility] [place] [address] [place], [place] [phone] Carlota Jin MD 1 [facility], [facility] 2 [place] [phone] 01/26/2025 6:45 EDT Treatment [facility] [place] [address] [place], [place] [phone] Carlota Jin MD 1 [facility], [facility] 2 [place] [phone] 01/29/2025 6:45 EDT Treatment [facility] [place] [address] [place], [place] [phone] Carlota Jin MD 1 [facility], [facility] 2 [place] [phone] 01/31/2025 6:45 EDT Treatment [facility] [place] [address] [place], [place] [phone] Carlota Jin MD [address] [place] [address], [facility] 2 [place] [phone] 02/02/2025 6:45 EDT Treatment [facility] [place] [address] [place], [place] [phone] Carlota Jin MD [address] [place] [address], [address] [phone] 02/05/2025 6:45 EDT Treatment [facility] [place] [address] [place], [place] [phone] Carlota Jin MD 1 [facility], [facility] 2 [place] [phone] 02/07/2025 6:45 EDT Treatment [facility] [place] [address] [place], [place] [phone] Carlota Jin MD 1 [facility], [facility] 2 [place] [phone] 02/09/2025 6:45 EDT Treatment [facility] [place] [address] [place], [place] [phone] Carlota Jin MD 1 [facility], [facility] 2 [place] [phone] 02/12/2025 6:45 EDT Treatment [facility] [place] [address] [place], [place] [phone] Carlota Jin MD 1 [facility], [facility] 2 [place] [phone] 02/14/2025 6:45 EDT Treatment [facility] [place] [address] [place], [place] [phone] Carlota Jin MD 1 [facility], [facility] 2 [place] [phone] 02/16/2025 6:45 EDT Treatment [facility] [place] [address] [place] [address] Carlota Jin MD 1 [facility], [facility] 2 [place] [phone] 02/19/2025 6:45 EDT Treatment [facility] [place] [address] [place] [address] Carlota Jin MD 1 [facility], [facility] 2 [place] [phone] 02/21/2025 6:45 EDT Treatment [facility] [place] [address] [place], [place] [phone] Carlota Jin MD 1 [facility], [facility] 2 [place] [phone] documented as of this encounter Procedures Procedure Name Priority Date/Time Associated Diagnosis Comments POSTDIALYSIS BUN WITH URR CALCULATION Routine 04/03/2024 12:41 EDT ESRD (end stage renal disease) ([facility]) BUN, PREDIALYSIS Routine 04/03/2024 6:33 EDT ESRD (end stage renal disease) ([facility]) HEMODIALYSIS Routine 04/03/2024 6:20 EDT ESRD (end stage renal disease) ([facility]) documented in this encounter Results * (ABNORMAL) POSTDIALYSIS BUN WITH URR CALCULATION (04/03/2024 12:41 EDT) BUN, Postdialysis 30(H) 10 - 26 mg/dL 04/03/2024 21:19 EDT [facility] Urea Reduction Rate 68.8 Not Established % 04/03/2024 21:19 EDT [facility] Comment: NOTE: Reference range not established for Urea Reduction Rate. BUN 96(H) 10 - 26 mg/dL 04/03/2024 21:19 EDT [facility] Blood VENOUS BLOOD / Unknown Venipuncture / Unknown 04/03/2024 12:41 EDT 04/03/2024 12:41 EDT Carlota Jin MD CHEMISTRY & BLOOD GAS ORD ERABLES Final Result [facility] [address] [place] [phone] * (ABNORMAL) BUN, PREDIALYSIS (04/03/2024 6:33 EDT) BUN, Predialysis 96(H) 10 - 26 mg/dL 04/03/2024 21:18 EDT [facility] Blood VENOUS BLOOD / Unknown Venipuncture / Unknown 04/03/2024 6:33 EDT 04/03/2024 6:33 EDT us Carlota Jin MD CHEMISTRY & BLOOD GAS ORD ERABLES Final Result [facility] [address] [place] [address] documented in this encounter Visit Diagnoses Diagnosis ESRD (end stage renal disease) ([facility])- Primary End stage renal disease Anemia of chronic renal failure, unspecified CKD stage Hypoalbuminemia Other disorders of plasma protein metabolism Secondary hyperparathyroidism ([facility]) Secondary hyperparathyroidism (of renal origin) documented in this encounter Administered Medications Inactive Administered Medications - up to 3 most recent administrations Medication Order MAR Action Action Date Dose Rate Site acetaminophen (TYLENOL) tablet 650 mg 650 mg, oral, EVERY 4 HOURS PRN, Starting on Wed04/03/24 at 0630, Until Wed04/03/24 at 1557, Pain, Routine, DialysisIndications:ESRD (end stage renal disease) ([facility]) Given 04/03/2024 6:52 EDT 650 mg calcium carbonate (TUMS) tablet 500 mg (200 mg elemental calcium) 2 Tablet 2 Tablet, oral, ONCE IN DIALYSIS, 1 dose, On Wed04/03/24 at 0645, Routine, DialysisIndications:ESRD (end stage renal disease) ([facility]),Secondary hyperparathyroidism ([facility]) Given 04/03/2024 6:52 EDT 2 Tablets epoetin ken (EPOGEN) 20,000 unit/2 mL injection 8,000 Units 8,000 Units, intravenous, ONCE IN DIALYSIS, 1 dose, On Wed04/03/24 at 0645, Routine, DialysisIndications:ESRD (end stage renal disease) ([facility]),Anemia of chronic renal failure, unspecified CKD stage Given 04/03/2024 6:52 EDT 8,000 Units heparin injection 7,000 Units 7,000 Units, intravenous, ONCE IN DIALYSIS, 1 dose, On Wed04/03/24 at 0645, Routine, Dialysis, Now x1 bolus 3400 units to be given at the beginning of dialysis 900 units/hour to be given over the course of dialysis (7000 units total). Stop 1 hour prior to end of treatment. To be administered per Policy [id number].Indications:ESRD (end stage renal disease) ([facility]) Given 04/03/2024 6:52 EDT 7,000 Units iron sucrose (VENOFER) injection 200 mg 200 mg, intravenous, ONCE IN DIALYSIS, 1 dose, On Wed04/03/24 at 0645, Routine, DialysisIndications:ESRD (end stage renal disease) ([facility]) Given 04/03/2024 6:52 EDT 200 mg LiquaCel liquid protein liquid 30 mL 30 mL, oral, ONCE IN DIALYSIS, 1 dose, On Wed04/03/24 at 0645, Patient's flavor preference: either, RoutineIndications:ESRD (end stage renal disease) ([facility]),Hypoalbuminemia Given 04/03/2024 6:52 EDT 30 mL documented in this encounter Orders Dialysis Count Last Ordered Date First Orde red Date HEMODIALYSIS 1 04/03/2024 documented in this encounter Care Teams Dairy Department Manager Relationship Specialty Start Date End Date Ken Greer MD [address] [place] [address] PCP - General 07/07/23 documented as of this encounter
--- OUTSIDE RECORDS SUMMARY | 2024-12-05 12:05 | XMS_ITS | Encounter Summary ---
Author Organization [facility] Address [address] [place] [address] Care Team Providers Care International Sourcing Manager Name Role Phone Ken Greer MD Primary Care Provider [phone] Encounter Details Date Type Department Care Team (Late st Contact Info) Description 04/14/2024 Documentation Visit [facility] [address] [place] [address] Shelley Eden, ADITI [address] [place] [address] Social History Tobacco Use Types Packs/Day Years [...] Description 12/06/2024 6:45 EST Treatment [facility] [address] [place], [place] [phone] Carlota Jin MD [address] [place] [phone] 12/08/2024 6:45 EST Treatment [facility] [address] [place], [place] [phone] Carlota Jin MD [address] [place] [address] [address] [place] [phone] 12/11/2024 6:45 EST Treatment [facility] [address] [place] [phone] Carlota Jin MD [address] [place] [address] [address] [place] [phone] 12/13/2024 6:45 EST Treatment [facility] [address] [place] [phone] Carlota Jin MD [facility] [address] [place] [phone] 12/15/2024 6:45 EST Treatment [facility] [place] [address] [place], [place] [phone] Carlota Jin MD 1 [facility], [facility] [address] [place] [phone] 12/18/2024 6:45 EST Treatment [facility] [place] [address] [place], [place] [phone] Carlota Jin MD 1 [facility], [facility] [address] [place] [phone] 12/20/2024 6:45 EST Treatment [facility] [place] [address] [place], [place] [id number] Carlota Jin MD 1 [facility], [facility] [address] [place] [phone] 12/22/2024 6:45 EST Treatment [facility] [address] [place], [place] [phone] Carlota Jin MD 1 [facility], [facility] [address] [place] [phone] 12/25/2024 6:45 EST Treatment [facility] [place] [address] [place], [place] [phone] Carlota Jin MD 1 [facility], [facility] [address] [place] [phone] 12/27/2024 6:45 EST Treatment [facility] [place] [address] [place], [place] [phone] Carlota Jin MD 1 [facility], [facility] [address] [place] [phone] 12/29/2024 6:45 EST Treatment [facility] [place] [address] [place], [place] [phone] Carlota Jin MD 1 [facility], [facility] [address] [place] [phone] 01/01/2025 6:45 EDT Treatment [facility] [place] [address] [place] [address] Carlota Jin MD 1 [facility], [address] [phone] 01/03/2025 6:45 EDT Treatment [facility] [place] [address] [place], [place] [phone] Carlota Jin MD 1 [facility], [facility] [address] [place] [phone] 01/05/2025 6:45 EDT Treatment [facility] [place] [address] [place], [place] [phone] Carlota Jin MD 1 [facility], [facility] [address] [place] [phone] 01/08/2025 6:45 EDT Treatment [facility] [place] [address] [place], [place] [id number] Carlota Jin MD 1 [facility], [facility] [address] [place] [phone] 01/10/2025 6:45 EDT Treatment [facility] [place] [address] [place] [address] Carlota Jin MD 1 [facility], [facility] [address] [place] [phone] 01/12/2025 6:45 EDT Treatment [facility] [place] [address] [place] [address] Carlota Jin MD 1 [facility], [facility] [address] [place] [phone] 01/15/2025 6:45 EDT Treatment [facility] [place] [address] [place] [address] Carlota Jin MD 1 [facility], [facility] [address] [place] [phone] 01/17/2025 6:45 EDT Treatment [facility] [place] [address] [place] [address] Carlota Jin MD 1 [facility], [facility] [address] [place] [phone] 01/19/2025 6:45 EDT Treatment [facility] [place] [address] [place], [place] [phone] Carlota Jin MD 1 [facility], [facility] [address] [place] [phone] 01/22/2025 6:45 EDT Treatment [facility] [place] [address] [place], [place] [address] Carlota Jin MD 1 [facility], [facility] [address] [place] [phone] 01/24/2025 6:45 EDT Treatment [facility] [place] [address] [place], [place] [id number] Carlota Jin MD 1 [facility], [facility] [address] [place] [phone] 01/26/2025 6:45 EDT Treatment [facility] [place] [address] [place], [place] [id number] Carlota Jin MD 1 [facility], [facility] [address] [place] [phone] 01/29/2025 6:45 EDT Treatment [facility] [place] [address] [place], [place] [id number] Carlota Jin MD 1 [facility], [facility] [address] [place] [phone] 01/31/2025 6:45 EDT Treatment [facility] [place] [address] [place], [place] [id number] Carlota Jin MD 1 [facility], [facility] [address] [place] [phone] 02/02/2025 6:45 EDT Treatment [facility] [place] [address] [place], [place] [id number] Carlota Jin MD 1 [facility], [facility] [address] [place] [phone] 02/05/2025 6:45 EDT Treatment [facility] [place] [address] [place], [place] [id number] Carlota Jin MD 1 [facility], [address] [phone] 02/07/2025 6:45 EDT Treatment [facility] [place] [address] [place], [place] [id number] Carlota Jin MD 1 [facility], [address] [phone] 02/09/2025 6:45 EDT Treatment [facility] [place] [address] [place], [place] [id number] Carlota Jin MD [address] [phone] 02/12/2025 6:45 EDT Treatment [facility] [place] [address] [place], [place] [phone] Carlota Jin MD [address] [phone] 02/14/2025 6:45 EDT Treatment [facility] [place] [address] [place], [place] [id number] Carlota Jin MD 1 [facility], [facility] [address] [place] [phone] 02/16/2025 6:45 EDT Treatment [facility] [address] [place], [place] [id number] Carlota Jin MD 1 [facility], [facility] [address] [place] [phone] 02/19/2025 6:45 EDT Treatment [facility] [address] [place], [place] [id number] Carlota Jin MD 1 [facility], [address] [phone] 02/21/2025 6:45 EDT Treatment [facility] [address] [place], [place] [phone] Carlota Jin MD 1 [facility], [address] [phone] documented as of this encounter Visit Diagnoses Not on filedocumented in this encounter Care Teams International Sourcing Manager Relationship Specialty Start Date End Date Ken Greer [place] [address] PCP - General 07/07/23 documented as of this encounter
--- OUTSIDE RECORDS SUMMARY | 2024-12-05 12:05 | XMS_ITS | Encounter Summary ---
Author Organization [facility] Address [address] [place] [address] Care Team Providers Care It Technical Architect Name Role Phone Ken Greer MD Primary Care Provider [phone] Encounter Details Date Type Department Care Team (Late st Contact Info) Description 04/03/2024 Documentation Visit [facility] [address] [place] [address] Alexa Estrada [facility] [address] [place] [address] Social History Tobacco Use Types Packs/Day Years [...] this encounter Progress Notes * Natalie Alexa, ASSOCIATE BUSINESS ANALYST - 04/03/2024 1114 EDT Program Supervisor's Monthly Assessment UPDATE: SW met with pt while on dialysis -pt verbalized that he has had an increase in anxiety while at home. He said that when he experiences anxiety, he feels scared and like he needs to be with people. SWsat with pt and provided reflective listening- pt said that he is smoking marijuana daily and whenever he feels like it to cope with anxiety- as well as a PRN med. Pt remains only intermittently coherent- earlier in the dialysis treatment he was not able to respond to SW verbally. SHANNON f/u with pts , Hoda, about how the pt has been functioning at home. Hoda said that she has noticed an increase in anxiety- for example he took his PRN anxiety med last night before bed, and again before dialysis (Hydroxyzine HCL 25mg). She does not notice a pattern to when he becomes more anxious or more sleepy. She said she cannot predict when he becomes drowsy. Hoda denies that pt smokesmarijuana before coming to dialysis as well, or that he is taking any other medications besides hisPRN anxiety medication. SHANNON explained that the pts change in mental status is concerning, and could indicate infection- Hoda stated understanding and will discuss at the pt's [facility] appt tomorrow. SHANNON placed a referral to the [facility] [place] [facility] for an options counselor to come and do an assessment on the pt to see if he would be eligible for [facility] for care. SHANNON worked on the application withHoda previously, but there are still questions around the pts eligibility. SW will continue to follow and remain available. Current Living Situation: Lives with family and Lives with friends Lives with family Pt lives with his , Hoda, in their apartment in [place]. He rents the apartment and has a [...] Transportation Status: Transportation: Drives Self Payor: Receives [employer] mileage reimbursement. Change in Physical/Medical Status and Hospitalization Change in physical or medical status: Yes: pt had an amputation of foot Hospitalization in Previous 3 Months: Yes, 03/13-03/14; 02/17-02/24 Emergency Room Visit in Previous 3 Months: Yes 02/17 Mental Health: Change in cognitive function? No Current or past mental health issues including feelings of anxiety or depression: Yes: anxiety Previous mental health diagnosis? No Past or current suicidal thinking/attempt? No Current emotional status: Difficulties in coping, Reports anxiety, Reports depression, Reports new stressors How does patient manage mental health: Pt utilizes medication for anxiety Patient/Family Strengths: Pt is friendly and engaging Interests/Spiritual/Synagogue Practice: No spiritual practices Depression Screening: Is [...] Contact Info) Description 12/06/2024 6:45 EST Treatment [facility] [address] [place], [place] [phone] Carlota Jin MD [address] [phone] 12/08/2024 6:45 EST Treatment [facility] [address] [place], [place] [id number] Carlota Jin MD [address] [place] [address] [phone] 12/11/2024 6:45 EST Treatment [facility] [address] [place], [place] [id number] Carlota Jin MD [address] [phone] 12/13/2024 6:45 EST Treatment [facility] [address] [place], [place] [id number] Carlota Jin MD 1 [facility], [facility] [address] [place] [phone] 12/15/2024 6:45 EST Treatment [facility] [place] [address] [place], [place] [id number] Carlota Jin MD 1 [facility], [facility] [address] [place] [phone] 12/18/2024 6:45 EST Treatment [facility] [place] [address] [place], [place] [id number] Carlota Jin MD 1 [facility], [facility] [address] [place] [phone] 12/20/2024 6:45 EST Treatment [facility] [place] [address] [place], [place] [id number] Carlota Jin MD 1 [facility], [facility] [address] [place] [phone] 12/22/2024 6:45 EST Treatment [facility] [address] [place], [place] [id number] Carlota Jin MD 1 [facility], [facility] [address] [place] [phone] 12/25/2024 6:45 EST Treatment [facility] [address] [place], [place] [phone] Carlota Jin MD 1 [facility], [facility] [address] [place] [phone] 12/27/2024 6:45 EST Treatment [facility] [place] [address] [place], [place] [phone] Carlota Jin MD 1 [facility], [facility] [address] [place] [phone] 12/29/2024 6:45 EST Treatment [facility] [place] [address] [place] [address] Carlota Jin MD 1 [facility], [facility] [address] [place] [phone] 01/01/2025 6:45 EDT Treatment [facility] [place] [address] [place], [place] [phone] Carlota Jin MD 1 [facility], [address] [phone] 01/03/2025 6:45 EDT Treatment [facility] [place] [address] [place], [place] [phone] Carlota Jin MD 1 [facility], [facility] [address] [place] [phone] 01/05/2025 6:45 EDT Treatment [facility] [place] [address] [place], [place] [id number] Carlota Jin MD 1 [facility], [facility] [address] [place] [phone] 01/08/2025 6:45 EDT Treatment [facility] [place] [address] [place], [place] [phone] Carlota Jin MD 1 [facility], Level [address] [place] [phone] 01/10/2025 6:45 EDT Treatment [facility] [place] [address] [place], [place] [id number] Carlota Jin MD 1 [facility], [facility] [address] [place] [phone] 01/12/2025 6:45 EDT Treatment [facility] [place] [address] [place], [place] [phone] Carlota Jin MD 1 [facility], [facility] [address] [place] [phone] 01/15/2025 6:45 EDT Treatment [facility] [place] [address] [place], [place] [id number] Carlota Jin MD 1 [facility], [facility] [address] [place] [phone] 01/17/2025 6:45 EDT Treatment [facility] [address] [place], [place] [id number] Carlota Jin MD 1 [facility], [facility] [address] [place] [phone] 01/19/2025 6:45 EDT Treatment [facility] [address] [place], [place] [id number] Carlota Jin MD 1 [facility], [facility] [address] [place] [phone] 01/22/2025 6:45 EDT Treatment [facility] [place] [address] [place], [place] [id number] Carlota Jin MD 1 [facility], [facility] [address] [place] [phone] 01/24/2025 6:45 EDT Treatment [facility] [place] [address] [place], [place] [phone] Carlota Jin MD 1 [facility], [facility] [address] [place] [phone] 01/26/2025 6:45 EDT Treatment [facility] [place] [address] [place], [place] [phone] Carlota Jin MD [address] [place] [address], [facility] [address] [place] [phone] 01/29/2025 6:45 EDT Treatment [facility] [place] [address] [place], [place] [phone] Carlota Jin MD 1 [facility], [facility] [address] [place] [phone] 01/31/2025 6:45 EDT Treatment [facility] [place] [address] [place], [place] [id number] Carlota Jin MD 1 [facility], [facility] [address] [place] [phone] 02/02/2025 6:45 EDT Treatment [facility] [place] [address] [place], [place] [id number] Carlota Jin MD 1 [facility], [facility] [address] [place] [phone] 02/05/2025 6:45 EDT Treatment [facility] [place] [address] [place], [place] [id number] Carlota Jin MD 1 [facility], [facility] [address] [place] [phone] 02/07/2025 6:45 EDT Treatment [facility] [place] [address] [place], [place] [id number] Carlota Jin MD 1 [facility], [address] [phone] 02/09/2025 6:45 EDT Treatment [facility] [place] [address] [place], [place] [id number] Carlota Jin MD 1 [facility], [address] [phone] 02/12/2025 6:45 EDT Treatment [facility] [place] [address] [place], [place] [id number] Carlota Jin MD 1 [facility], [facility] [address] [place] [phone] 02/14/2025 6:45 EDT Treatment [facility] [place] [address] [place], [place] [phone] Carlota Jin MD 1 [facility], [facility] [address] [place] [phone] 02/16/2025 6:[address] [facility] [address] [place], [place] [id number] Carlota Jin MD 1 [facility], [facility] [address] [place] [phone] 02/19/2025 6:[address] [facility] [address] [place], [place] [id number] Carlota Jin MD [address] [place] [address], [facility] [address] [place] [phone] 02/21/2025 6:45 EDT Treatment [facility] [address] [place], [place] [id number] Carlota Jin MD [address] [place] [address], [facility] [address] [place] [phone] documented as of this encounter Visit Diagnoses Not on filedocumented in this encounter Care Teams It Technical Architect Relationship Specialty Start Date End Date [place] [address] PCP - General 07/07/23 documented as of this encounter
--- OUTSIDE RECORDS SUMMARY | 2024-12-05 12:05 | XMS_ITS | Encounter Summary ---
Author Organization [facility] Address [address] [place] [address] Care Team Providers Care Account Adjuster Name Role Phone Ken Greer MD Primary Care Provider [phone] Encounter Details Date Type Department Care Team (Late st Contact Info) Description 04/18/2024 Documentation Visit [address] [place] [address] Shelley Eden, RD [address] [place] [address] Social History Tobacco Use Types Packs/Day Years [...] Progress Notes * Shelley Eden, RD - 04/18/2024 1421 EDT Dialysis Dietitian's Monthly Assessment Met with patient on 04/14/24 Family/caregivers or others present: lives with his Information obtained from: patient Recent Hospitalizations: 03/13-03/14/24 COVID , 02/18/24-02/25/24 BKA, 11/07-10/31/23 COVID and diabetic foot infection Subjective: Xander was once again very sleepy during most of his run. Talked to Xander a bit - he said hejuless felt more anxiety recently. and home health help with his wound. Spoke with his when she came to pick him up. Hoda reported that his wound is really not getting better - we discussed need for high protein intake and trying to add protein powder at home. We also discussed high k and phos level revd diet. Appetite: Good Appetite scale (0-10): No number given Gastrointestinal: No issues reported Skin integrity: S/p amp and also now with black area on right foot Diabetes: Yes does not check on bld sugars Diabetes Management: Self Monitoring of Blood Glucose on insulin but does not check Diet Recall: B egg sausage gravy and home fries L none D steak and asparagus Fluid: Water, Coffee, Milk, Juice Alcohol: will need to f/u Prescribed Weight:81.5 Post-Dialytic Weight: 81.5 04/07/2024 10:43 04/10/2024 10:41 04/12/2024 10:51 04/14/2024 10:40 04/17/2024 12:17 - ( Kg ) 80.4 80.5 79.5 79.1 81.5 UFR: 04/07/2024 10:43 04/10/2024 10:41 04/12/2024 10:51 04/14/2024 10:40 04/17/2024 12:17 - mL/Kg/hr 8.67 ml:kg:hr 10.43 ml:kg:hr 3.07 ml:kg:hr 11.02 ml:kg:hr 15.82 ml:kg:hr URR: 68.75 (Calculated from:; BUN Pre-Dialysis: 96 mg/dL at 04/03/2024 12:41; BUN Post-Dialysis: 30 mg/dL at 04/03/2024 12:41) Kt/V: 1.4 (Calculated from:; BUN Pre-Dialysis: 96 mg/dL at 04/03/2024 12:41; BUN Post-Dialysis: 30 mg/dL at 04/03/2024 12:41; Pre-Treatment Weight (kg): 85.2 at 04/03/2024 6:24; Post-Treatment Weight (kg): 81.6 at 04/03/2024 10:40; Duration of Treatment (minutes): 241 minutes at 04/03/2024 10:40) PCR: 1.6 (Calculated from:; BUN Pre-Dialysis: 96 mg/dL at 04/03/2024 12:41; BUN Post-Dialysis: 30 mg/dL at 04/03/2024 12:41; Pre-Treatment Weight (kg): 85.2 at 04/03/2024 6:24; Post-Treatment Weight (kg): 81.6 at 04/03/2024 10:40; Duration of Treatment (minutes): 241 minutes at 04/03/2024 10:40; Age: 58years) Pertinent Labs include: Lab Results Component Value Date LABALBU 2.9 (L) 03/27/2024 LABALBU 2.6 (L) 02/28/2024 Lab Results Component Value Date BUNPRE 96 (H) 04/03/2024 BUNPRE 96 (H) 04/03/2024 NA 134 (L) 03/27/2024 NA 134 (L) 02/28/2024 K 7.2 (H) 03/27/2024 K 6.7 (H) 02/28/2024 CL 100 03/27/2024 CL 98 02/28/2024 CO2 21 (L) 03/27/2024 CO2 25 02/28/2024 MG 2.4 03/27/2024 MG 2.1 02/28/2024 CALCIUM 8.8 03/27/2024 CALCIUM 8.7 02/28/2024 CALCCA 9.7 03/27/2024 CALCCA 9.8 02/28/2024 PHOS 8.4 (H) 03/27/2024 PHOS 6.2 (H) 02/28/2024 ALKPHOS 113 03/27/2024 ALKPHOS 148 (H) 02/28/2024 PTH 329 (H) 01/24/2024 PTH 707 (H) 10/27/2023 PLT 344 04/12/2024 PLT 328 04/05/2024 MCV 91 04/12/2024 MCV 93 04/05/2024 [id number] 607 10/27/2023 [id number] 688 11/16/2022 VITD 21 (L) 10/27/2023 VITD [...] patiromer calcium sorbitex - 8.4 gram sevelamer hydrochloride - 800 mg insulin aspart U-100 - 100 unit/mL (3 mL) insulin glargine - 100 unit/mL (3 mL) insulin lispro - 100 unit/mL Assessment Nutrition status / Adequacy of intake: Xander is eating well but a bit limited in protein for wound healing - encouraged increase intake and use of protein powder - albumin further declined r/t recent COVID . Will cont liquacel at HD. . Wt has declined about 3 kg in th past month. At his current wt his BMI is 28 adjusted for amp Weight/Volume status: fluid gains 2.1-7.6 UFR 3-15 Electrolytes: K- high - revd diet and provided info sheet- WINDOWS APPLICATION ADMINISTRATOR sent in script for K binder Na -low indicating fluid on Mg WNL Mineral Bone Disease: Ca WNL [...] Extensive potassium education sheet - March 2024 Assessment of Understanding: needs reinforcement Medical Nutrition Therapy Plan and Recommendation Revd high phos foods to limit monthly - Encourage consistency with binders Cont liquacel at HD restart protein powder at home -reinforced high protein needs for wound healing Cont vitamin and D3 Revd high k foods to limit - info sheet given Shelley Eden RD, CD documented in this encounter Plan of Treatment Upcoming Encounters Date Type Department Care Team (Late st Contact Info) Description 12/06/2024 6:45 EST Treatment [facility] [address] [place] [phone] Carlota Jin MD 1 [facility] [address] [place] [phone] 12/08/2024 6:45 EST Treatment [facility] [address] [place] [phone] Carlota Jin MD 1 [facility] [address] [place] [phone] 12/11/2024 6:45 EST Treatment [facility] [place] [address] [place], [place] [phone] Carlota Jin MD 1 [facility], [facility] [address] [place] [phone] 12/13/2024 6:45 EST Treatment [facility] [place] [address] [place], [place] [phone] Carlota Jin MD 1 [facility], [facility] [address] [place] [phone] 12/15/2024 6:45 EST Treatment [facility] [place] [address] [place] [address] Carlota Jin MD 1 [facility], [facility] [address] [place] [phone] 12/18/2024 6:45 EST Treatment [facility] [address] [place] [address] Carlota Jin MD 1 [facility], [facility] [address] [place] [phone] 12/20/2024 6:45 EST Treatment [facility] [place] [address] [place], [place] [phone] Carlota Jin MD 1 [facility], [facility] [address] [place] [phone] 12/22/2024 6:45 EST Treatment [facility] [place] [address] [place], [place] [phone] Carlota Jin MD 1 [facility], [facility] [address] [place] [phone] 12/25/2024 6:45 EST Treatment [facility] [place] [address] [place], [place] [id number] Carlota Jin MD 1 [facility], [facility] [address] [place] [phone] 12/27/2024 6:45 EST Treatment [facility] [place] [address] [place], [place] [phone] Carlota Jin MD 1 [facility], [facility] [address] [place] [phone] 12/29/2024 6:45 EST Treatment [facility] [place] [address] [place], [place] [phone] Carlota Jin MD 1 [facility], [facility] [address] [place] [phone] 01/01/2025 6:45 EDT Treatment [facility] [place] [address] [place], [place] [phone] Carlota Jin MD 1 [facility], [facility] [address] [place] [phone] 01/03/2025 6:45 EDT Treatment [facility] [place] [address] [place], [place] [phone] Carlota Jin MD 1 [facility], [facility] [address] [place] [phone] 01/05/2025 6:45 EDT Treatment [facility] [place] [address] [place], [place] [phone] Carlota Jin MD 1 [facility], [facility] [address] [place] [phone] 01/08/2025 6:45 EDT Treatment [facility] [place] [address] [place] [address] Carlota Jin MD 1 [facility], [facility] [address] [place] [phone] 01/10/2025 6:45 EDT Treatment [facility] [place] [address] [place] [address] Carlota Jin MD 1 [facility], [facility] [address] [place] [phone] 01/12/2025 6:45 EDT Treatment [facility] [place] [address] [place] [address] Carlota Jin MD 1 [facility], [facility] [address] [place] [phone] 01/15/2025 6:45 EDT Treatment [facility] [place] [address] [place], [place] [phone] Carlota Jin MD 1 [facility], [facility] [address] [place] [phone] 01/17/2025 6:45 EDT Treatment [facility] [place] [address] [place], [place] [id number] Carlota Jin MD 1 [facility], [facility] [address] [place] [phone] 01/19/2025 6:45 EDT Treatment [facility] [place] [address] [place], [place] [id number] Carlota Jin MD 1 [facility], [facility] [address] [place] [phone] 01/22/2025 6:45 EDT Treatment [facility] [place] [address] [place] [address] Carlota Jin MD 1 [facility], [address] [phone] 01/24/2025 6:45 EDT Treatment [facility] [place] [address] [place], [place] [id number] Carlota Jin MD 1 [facility], [facility] [address] [place] [phone] 01/26/2025 6:45 EDT Treatment [facility] [place] [address] [place], [place] [id number] Carlota Jin MD 1 [facility], [facility] [address] [place] [phone] 01/29/2025 6:45 EDT Treatment [facility] [place] [address] [place], [place] [id number] Carlota Jin MD 1 [facility], [facility] [address] [place] [phone] 01/31/2025 6:45 EDT Treatment [facility] [place] [address] [place] [address] Carlota Jin MD 1 [facility], [facility] [address] [place] [phone] 02/02/2025 6:45 EDT Treatment [facility] [place] [address] [place] [address] Carlota Jin MD 1 [facility], [facility] [address] [place] [phone] 02/05/2025 6:45 EDT Treatment [facility] [place] [address] [place], [place] [id number] Carlota Jin MD 1 [facility], [facility] [address] [place] [phone] 02/07/2025 6:45 EDT Treatment [facility] [place] [address] [place] [address] Carlota Jin MD 1 [facility], [facility] [address] [place] [phone] 02/09/2025 6:45 EDT Treatment [facility] [place] [address] [place], [place] [id number] Carlota Jin MD 1 [facility], [facility] [address] [place] [phone] 02/12/2025 6:45 EDT Treatment [facility] [place] [address] [place], [place] [id number] Carlota Jin MD 1 [facility], [address] [phone] 02/14/2025 6:45 EDT Treatment [facility] [place] [address] [place], [place] [id number] Carlota Jin MD [address] [place] [phone] 02/16/2025 6:45 EDT Treatment [facility] [place] [address] [place], [place] [id number] Carlota Jin MD [address] [place] [address] [phone] 02/19/2025 6:45 EDT Treatment [facility] [place] [address] [place], [place] [phone] Carlota Jin MD [address] [place] [address], [address] [phone] 02/21/2025 6:45 EDT Treatment [facility] [address] [place], [place] [phone] Carlota Jin MD 1 [facility], [address] [phone] documented as of this encounter Visit Diagnoses Not on filedocumented in this encounter Care Teams Account Adjuster Relationship Specialty Start Date End Date Ken Greer MD Moh[facility] [place] [address] PCP - General 07/07/23 documented as of this encounter
--- OUTSIDE RECORDS SUMMARY | 2024-12-05 12:05 | XMS_ITS | Encounter Summary ---
Author Organization [facility] Address [address] [place] [address] Care Team Providers Care Campus Recruiting Intern Name Role Phone Ken Greer MD Primary Care Provider [phone] Reason for Visit * Episode Based Medications (Routine) - New Request Specialty Diagnoses / Procedures Referred By Nader pena Referred To Contact Diagnoses ESRD (end stage renal disease) ([facility]) Carlota Jin MD [address] [place] [phone] Phone: tel: fax: [facility] [place] [address] [place] [address] Phone: tel: fax: Referral ID Status Reason Start Date Expiration Date V isits Requested Visits Authorized [id number] New Request 03/17/2024 1 1 Encounter Details Date Type Department Care Team (Latest Contact Info) Description 04/07/2024 6:45 EDT Treatment [facility] [address] [place], [place] [id number] Carlota Jin MD [address] [place] [phone] ESRD (end stage renal disease) ([facility]) (Primary Dx); Anemia of chronic renal failure, unspecified CKD stage; Hypoalbuminemia; Secondary hyperparathyroidism ([facility]) Social History Tobacco Use [...] - Temperature - - Respiratory Rate 16 04/07/2024 0628 EDT Oxygen Saturation - - Inhaled Oxygen Concentration - - Weight 83.2 kg (183 lb 6.8 oz) 04/07/2024 0627 E DT Height - - Body Mass Index 26.32 12/20/2023 2202 EST documented in this encounter [...] Flowsheet Note - Marcela Cox RN - 04/07/2024 2089 EDT 04/07/24 1043 Post-Hemodialysis Assessment Total Blood Processed (L) 89.01 Liters On Line Clearance: spKt/V 1.68 spKt/V Dialyzer Clearance Lightly streaked Treatment UFR (ml:kg:hr) 8.67 ml:kg:hr Final Critline Profile (%/hr) -1.74 Final Profile Profile A Critline refill Negative Fluid Removed (L) 3 L Post-Dialysis Scale Weight 97.9 kg (215 lb 13.3 oz) Wheelchair Weight 17.5 kg (38 lb 9.3 oz) Prosthesis Weight 0 kg (0 lb) Post-Treatment Weight (kg) 80.4 Treatment Weight Change (kg) 2.8 kg Day Target Weight (kg) 80.7 Post Sitting/Lying BP (!) 188/97 Post Sitting/Lying pulse 84 Temp 36.7 ??C (98.1 ??F) Temp src Temporal Minutes Short -241 Post access assessment AVF/AFG Hemostasis achieved Yes Note Clamps used for 10 minutes. Orientation Alert and Oriented x3 Yes Time [...] Contact Info) Description 12/06/2024 6:45 EST Treatment [facility] [address] [place] [id number] Carl[facility] [address] [place] [phone] 12/08/2024 6:45 EST Treatment [facility] [address] [place] [id number] Carlota Jin MD 1 [facility], [facility] [address] [place] [phone] 12/11/2024 6:45 EST Treatment [facility] [place] [address] [place], [place] [id number] Carlota Jin MD 1 [facility], [facility] 2 [place] [phone] 12/13/2024 6:45 EST Treatment [facility] [place] [address] [place], [place] [id number] Carlota Jin MD 1 [facility], [facility] 2 [place] [phone] 12/15/2024 6:45 EST Treatment [facility] [address] [place], [place] [id number] Carlota Jin MD 1 [facility], [facility] 2 [place] [phone] 12/18/2024 6:45 EST Treatment [facility] [address] [place], [place] [id number] Carlota Jin MD 1 [facility], [facility] 2 [place] [phone] 12/20/2024 6:45 EST Treatment [facility] [place] [address] [place], [place] [id number] Carlota Jin MD 1 [facility], [facility] 2 [place] [phone] 12/22/2024 6:45 EST Treatment [facility] [place] [address] [place], [place] [id number] Carlota Jin MD 1 [facility], [facility] 2 [place] [phone] 12/25/2024 6:45 EST Treatment [facility] [place] [address] [place], [place] [id number] Carlota Jin MD 1 [facility], [facility] 2 [place] [phone] 12/27/2024 6:45 EST Treatment [facility] [place] [address] [place], [place] [id number] Carlota Jin MD 1 [facility], [facility] 2 [place] [phone] 12/29/2024 6:45 EST Treatment [facility] [place] [address] [place], [place] [id number] Carlota Jin MD 1 [facility], [facility] 2 [place] [phone] 01/01/2025 6:45 EDT Treatment [facility] [place] [address] [place], [place] [id number] Carlota Jin MD 1 [facility], [facility] 2 [place] [phone] 01/03/2025 6:45 EDT Treatment [facility] [address] [place] [address] Carlota Jin MD 1 [facility], [facility] 2 [place] [phone] 01/05/2025 6:45 EDT Treatment [facility] [place] [address] [place], [place] [id number] Carlota Jin MD 1 [facility], [facility] 2 [place] [phone] 01/08/2025 6:45 EDT Treatment [facility] [place] [address] [place] [address] Carlota Jin MD 1 [facility], [address] [phone] 01/10/2025 6:45 EDT Treatment [facility] [place] [address] [place], [place] [id number] Carlota Jin MD 1 [facility], [address] [phone] 01/12/2025 6:45 EDT Treatment [facility] [address] [place] [address] Carlota Jin MD 1 [facility], [facility] 2 [place] [phone] 01/15/2025 6:45 EDT Treatment [facility] [place] [address] [place], [place] [id number] Carlota Jin MD 1 [facility], [facility] 2 [place] [phone] 01/17/2025 6:45 EDT Treatment [facility] [place] [address] [place], [place] [address] Carlota Jin MD 1 [facility], [facility] 2 [place] [phone] 01/19/2025 6:45 EDT Treatment [facility] [address] [place], [place] [id number] Carlota Jin MD [address] [place] [address], [facility] 2 [place] [phone] 01/22/2025 6:45 EDT Treatment [facility] [address] [place], [place] [id number] Carlota Jin MD 1 [facility], [facility] 2 [place] [phone] 01/24/2025 6:45 EDT Treatment [facility] [place] [address] [place], [place] [address] Carlota Jin MD [address] [place] [address], [facility] 2 [place] [phone] 01/26/2025 6:45 EDT Treatment [facility] [place] [address] [place], [place] [id number] Carlota Jin MD [address] [place] [address], [facility] 2 [place] [phone] 01/29/2025 6:45 EDT Treatment [facility] [place] [address] [place], [place] [address] Carlota Jin MD 1 [facility], [address] [phone] 01/31/2025 6:45 EDT Treatment [facility] [place] [address] [place] [address] Carlota Jin MD 1 [facility], [address] [phone] 02/02/2025 6:45 EDT Treatment [facility] [place] [address] [place], [place] [id number] Carlota Jin MD 1 [facility], [address] [phone] 02/05/2025 6:45 EDT Treatment [facility] [address] [place], [place] [id number] Carlota Jin MD 1 [facility], [address] [phone] 02/07/2025 6:45 EDT Treatment [facility] [place] [address] [place], [place] [id number] Carlota Jin MD [address] [phone] 02/09/2025 6:45 EDT Treatment [facility] [place] [address] [place], [place] [id number] Carlota Jin MD 1 [facility], [facility] 2 [place] [phone] 02/12/2025 6:45 EDT Treatment [facility] [place] [address] [place], [place] [id number] Carlota Jin MD 1 [facility], [facility] 2 [place] [phone] 02/14/2025 6:45 EDT Treatment [facility] [place] [address] [place], [place] [id number] Carlota Jin MD 1 [facility], [address] [phone] 02/16/2025 6:45 EDT Treatment [facility] [place] [address] [place], [place] [id number] Carlota Jin MD [address] [phone] 02/19/2025 6:45 EDT Treatment [facility] [place] [address] [place], [place] [id number] Carlota Jin MD 1 [facility], [address] [phone] 02/21/2025 6:45 EDT Treatment [facility] [place] [address] [place], [place] [id number] Carlota Jin MD 1 [facility], [facility] 2 [place] [phone] documented as of this encounter Procedures Procedure Name Priority Date/Time Associated Diagnosis Comments HEMODIALYSIS Routine 04/07/2024 6:28 EDT ESRD (end stage renal disease) ([facility]) documented in this encounter Visit Diagnoses Diagnosis ESRD (end stage renal disease) ([facility])- Primary End stage renal disease Anemia of chronic renal failure, unspecified CKD stage Hypoalbuminemia Other disorders of plasma protein metabolism Secondary hyperparathyroidism ([facility]) Secondary hyperparathyroidism (of renal origin) documented in this encounter Administered Medications Inactive Administered Medications - up to 3 most recent administrations Medication Order MAR Action Action Date Dose Rate Site calcium carbonate (TUMS) tablet 500 mg (200 mg elemental calcium) 2 Tablet 2 Tablet, oral, ONCE IN DIALYSIS, 1 dose, On Wed04/07/24 at 0645, Routine, DialysisIndications:ESRD (end stage renal disease) ([facility]),Secondary hyperparathyroidism ([facility]) Given 04/07/2024 7:06 EDT 2 Tablets epoetin ken (EPOGEN) 20,000 unit/2 mL injection 8,000 Units 8,000 Units, intravenous, ONCE IN DIALYSIS, 1 dose, On Wed04/07/24 at 0645, Routine, DialysisIndications:ESRD (end stage renal disease) ([facility]),Anemia of chronic renal failure, unspecified CKD stage Given 04/07/2024 7:06 EDT 8,000 Units heparin injection 7,000 Units 7,000 Units, intravenous, ONCE IN DIALYSIS, 1 dose, On Wed04/07/24 at 0645, Routine, Dialysis, Now x1 bolus 3400 units to be given at the beginning of dialysis 900 units/hour to be given over the course of dialysis (7000 units total). Stop 1 hour prior to end of treatment. To be administered per Policy [id number].Indications:ESRD (end stage renal disease) ([facility]) Given 04/07/2024 7:05 EDT 7,000 Units LiquaCel liquid protein liquid 30 mL 30 mL, oral, ONCE IN DIALYSIS, 1 dose, On Wed04/07/24 at 0645, Patient's flavor preference: either, RoutineIndications:ESRD (end stage renal disease) ([facility]),Hypoalbuminemia Given 04/07/2024 7:05 EDT 30 mL documented in this encounter Orders Dialysis Count Last Ordered Date First Orde red Date HEMODIALYSIS 1 04/07/2024 documented in this encounter Care Teams Campus Recruiting Intern Relationship Specialty Start Date End Date Ken Greer MD [address] [place] [address] PCP - General 07/07/23 documented as of this encounter
--- OUTSIDE RECORDS SUMMARY | 2024-12-05 12:05 | XMS_ITS | Encounter Summary ---
Author Organization [facility] Address [address] [place] [address] Care Team Providers Care Power Plant Supervisor Name Role Phone Ken Greer MD Primary Care Provider [phone] Encounter Details Date Type Department Care Team (Late st Contact Info) Description 04/07/2024 Documentation Visit [address] [place], [place] [address] Melissa Crespo, RN Social History Tobacco Use [...] [facility] [place] [address] [place], [place] [phone] Carlota Jin MD 1 [facility], [facility] 2 [place] [phone] 12/08/2024 6:45 EST Treatment [facility] [place] [address] [place], [place] [phone] Carlota Jin MD 1 [facility] 2 [place] [phone] 12/11/2024 6:45 EST Treatment [facility] [place] [address] [place], [place] [phone] Carlota Jin MD 1 [facility], [facility] 2 [place] [phone] 12/13/2024 6:45 EST Treatment [facility] [address] [place], [place] [id number] Carlota Jin MD 1 [facility], [facility] 2 [place] [phone] 12/15/2024 6:45 EST Treatment [facility] [place] [address] [place], [place] [id number] Carlota Jin MD 1 [facility], [facility] [address] [place] [phone] 12/18/2024 6:45 EST Treatment [facility] [place] [address] [place], [place] [id number] Carlota Jin MD 1 [facility], [facility] 2 [place] [phone] 12/20/2024 6:45 EST Treatment [facility] [place] [address] [place], [place] [id number] Carltoa Jin MD 1 [facility], [facility] 2 [place] [phone] 12/22/2024 6:45 EST Treatment [facility] [address] [place], [place] [id number] Carlota Jin MD 1 [facility], [facility] 2 [place] [phone] 12/25/2024 6:45 EST Treatment [facility] [address] [place], [place] [id number] Carlota Jin MD 1 [facility], [facility] 2 [place] [phone] 12/27/2024 6:45 EST Treatment [facility] [place] [address] [place], [place] [id number] Carlota Jin MD 1 [facility], [facility] 2 [place] [phone] 12/29/2024 6:45 EST Treatment [facility] [place] [address] [place], [place] [id number] Carlota Jin MD 1 [facility], [address] [phone] 01/01/2025 6:45 EDT Treatment [facility] [place] [address] [place], [place] [id number] Carlota Jin MD 1 [facility], [address] [phone] 01/03/2025 6:45 EDT Treatment [facility] [place] [address] [place], [place] [id number] Carlota Jin MD 1 [facility], [address] [phone] 01/05/2025 6:45 EDT Treatment [facility] [place] [address] [place], [place] [id number] Carlota Jin MD [address] [place] [address], [facility] 2 [place] [phone] 01/08/2025 6:45 EDT Treatment [facility] [place] [address] [place], [place] [id number] Carlota Jin MD 1 [facility], [address] [place] [phone] 01/10/2025 6:45 EDT Treatment [facility] [place] [address] [place], [place] [address] Carlota Jin MD 1 [facility], [facility] 2 [place] [phone] 01/12/2025 6:45 EDT Treatment [facility] [place] [address] [place], [place] [id number] Carlota Jin MD 1 [facility], [facility] 2 [place] [phone] 01/15/2025 6:45 EDT Treatment [facility] [place] [address] [place], [place] [id number] Carlota Jin MD 1 [facility], [facility] 2 [place] [phone] 01/17/2025 6:45 EDT Treatment [facility] [address] [place], [place] [id number] Carlota Jin MD 1 [facility], [facility] 2 [place] [phone] 01/19/2025 6:45 EDT Treatment [facility] [address] [place], [place] [id number] Carlota Jin MD 1 [facility], [facility] 2 [place] [phone] 01/22/2025 6:45 EDT Treatment [facility] [place] [address] [place], [place] [id number] Carlota Jin MD 1 [facility], [facility] 2 [place] [phone] 01/24/2025 6:45 EDT Treatment [facility] [place] [address] [place], [place] [id number] Carlota Jin MD 1 [facility], [facility] 2 [place] [phone] 01/26/2025 6:45 EDT Treatment [facility] [place] [address] [place], [place] [id number] Carlota Jin MD 1 [facility], [facility] 2 [place] [phone] 01/29/2025 6:45 EDT Treatment [facility] [place] [address] [place], [place] [id number] Carlota Jin MD 1 [facility], [facility] 2 [place] [phone] 01/31/2025 6:45 EDT Treatment [facility] [place] [address] [place], [place] [id number] Carlota Jin MD 1 [facility], [facility] 2 [place] [phone] 02/02/2025 6:45 EDT Treatment [facility] [place] [address] [place], [place] [id number] Carlota Jin MD 1 [facility], [facility] 2 [place] [phone] 02/05/2025 6:45 EDT Treatment [facility] [place] [address] [place], [place] [id number] Carlota Jin MD 1 [facility], [facility] 2 [place] [phone] 02/07/2025 6:45 EDT Treatment [facility] [place] [address] [place] [address] Carlota Jin MD 1 [facility], [address] [phone] 02/09/2025 6:45 EDT Treatment [facility] [place] [address] [place], [place] [id number] Carlota Jin MD 1 [facility], [address] [phone] 02/12/2025 6:45 EDT Treatment [facility] [place] [address] [place] [address] Carlota Jin MD 1 [facility], [facility] 2 [place] [phone] 02/14/2025 6:45 EDT Treatment [facility] [place] [address] [place], [place] [id number] Carlota Jin MD 1 [facility], [facility] 2 [place] [phone] 02/16/2025 6:45 EDT Treatment [facility] [address] [place], [place] [id number] Carlota Jin MD 1 [facility], [facility] 2 [place] [phone] 02/19/2025 6:45 EDT [facility] [address] [place], [place] [id number] Carlota Jin MD [address] [place] [address], [facility] 2 [place] [phone] 02/21/2025 6:45 EDT Treatment [facility] [address] [place], [place] [id number] Carlota Jin MD [address] [place] [address], [facility] 2 [place] [phone] documented as of this encounter Visit Diagnoses Not on filedocumented in this encounter Care Teams Power Plant Supervisor Relationship Specialty Start Date End Date [place] [address] PCP - General 07/07/23 documented as of this encounter
--- OUTSIDE RECORDS SUMMARY | 2024-12-05 12:05 | XMS_ITS | Encounter Summary ---
Author Organization [facility] Address [address] [place] [address] Care Team Providers Care Equipment Oiler Name Role Phone Ken Greer MD Primary Care Provider [phone] Reason for Visit * Episode Based Medications (Routine) - New Request Specialty Diagnoses / Procedures Referred By Nader pena Referred To Contact Diagnoses ESRD (end stage renal disease) ([facility]) Carlota Jin MD [address] [place] [phone] Phone: tel: fax: [facility] - [place] [address] [place] [address] Phone: tel: fax: Referral ID Status Reason Start Date Expiration Date V isits Requested Visits Authorized [id number] New Request 03/17/2024 1 1 Encounter Details Date Type Department Care Team (Latest Contact Info) Description 04/05/2024 6:45 EDT Treatment [facility] [address] [place] [phone] Carlota Jin MD [address] [place] [phone] ESRD (end stage renal disease) ([facility]) (Primary Dx); Anemia of chronic renal failure, unspecified CKD stage; Hypoalbuminemia; Secondary hyperparathyroidism ([facility]) Social History Tobacco Use [...] - Temperature - - Respiratory Rate 16 04/05/2024 0629 EDT Oxygen Saturation - - Inhaled Oxygen Concentration - - Weight 83.7 kg (184 lb 8.4 oz) 04/05/2024 0622 E DT Height - - Body Mass Index 26.48 12/20/2023 2202 EST documented in this encounter [...] Flowsheet Note - Marcela Cox RN - 04/05/2024 1344 EDT 04/05/24 1047 Post-Hemodialysis Assessment Total Blood Processed (L) 89.88 Liters On Line Clearance: spKt/V 1.71 spKt/V Dialyzer Clearance Lightly streaked Treatment UFR (ml:kg:hr) 8.97 ml:kg:hr Final Critline Profile (%/hr) -0.9 Final Profile Profile A Critline refill Negative (28.3/28.2) Fluid Removed (L) 3 L Post-Dialysis Scale Weight 97.6 kg (215 lb 2.7 oz) Wheelchair Weight 16.8 kg (37 lb 0.6 oz) Prosthesis Weight 0 kg (0 lb) Post-Treatment Weight (kg) 80.8 Treatment Weight Change (kg) 2.9 kg Day Target Weight (kg) 81.2 Post Sitting/Lying BP (!) 190/99 Post Sitting/Lying pulse 65 Temp 36.4 ??C (97.5 ??F) Temp src Temporal Post access assessment AVF/AFG Hemostasis achieved Yes [...] Dialysis Rounding - Skye Gomez NP - 04/05/2024 0645 EDT Dialysis Provider's Routine Assessment Gerson Bruner was seen and examined as appropriate during Dialysis. Pertinent lab results were reviewed. Changes since last visit: None Changes to current prescriptions/orders: None Skye Gomez NP documented in this encounter Plan of Treatment Upcoming Encounters Date Type Department Care Team (Late st Contact Info) Description 12/06/2024 6:45 EST Treatment [facility] - [place] [address] [place], [place] [id number] Carlota Jin MD 1 [facility], [facility] [address] [place] [phone] 12/08/2024 6:45 EST Treatment [facility] - [place] [address] [place], [place] [phone] Carlota Jin MD 1 [facility], [facility] 2 [place] [phone] 12/11/2024 6:45 EST Treatment [facility] - [place] [address] [place], [place] [id number] Carlota Jin MD 1 [facility], [facility] 2 [place] [phone] 12/13/2024 6:45 EST Treatment [facility] - [place] [address] [place], [place] [phone] Carlota Jin MD 1 [facility], [address] [phone] 12/15/2024 6:45 EST Treatment [facility] - [place] [address] [place], [place] [phone] Carlota Jin MD 1 [facility], [facility] [address] [place] [phone] 12/18/2024 6:45 EST Treatment [facility] - [place] [address] [place], [place] [phone] Carlota Jin MD 1 [facility] [address] [place] [phone] 12/20/2024 6:45 EST Treatment [facility] - [place] [address] [place], [place] [phone] Carlota Jin MD 1 [facility], [facility] [address] [place] [phone] 12/22/2024 6:45 EST Treatment [facility] - [place] [address] [place], [place] [phone] Carlota Jin MD 1 [facility], [facility] [address] [place] [phone] 12/25/2024 6:45 EST Treatment [facility] - [place] [address] [place], [place] [phone] Carlota Jin MD 1 [facility], [facility] [address] [place] [phone] 12/27/2024 6:45 EST Treatment [facility]ial[facility] [address] [place], [place] [phone] Carlota Jin MD 1 [facility], [facility] [address] [place] [phone] 12/29/2024 6:45 EST Treatment [facility] [address] [place], [place] [phone] Carlota Jin MD 1 [facility], [facility] 2 [place] [phone] 01/01/2025 6:45 EDT Treatment [facility] - [place] [address] [place], [place] [phone] Carlota Jin MD 1 [facility], [address] [phone] 01/03/2025 6:45 EDT Treatment [facility] - [place] [address] [place], [place] [phone] Carlota Jin MD 1 [facility], [address] [phone] 01/05/2025 6:45 EDT Treatment [facility] - [place] [address] [place], [place] [phone] Carlota Jin MD 1 [facility], [address] [phone] 01/08/2025 6:45 EDT Treatment [facility] - [place] [address] [place], [place] [phone] Carlota Jin MD 1 [facility], [address] [phone] 01/10/2025 6:45 EDT Treatment [facility] - [place] [address] [place], [place] [phone] Carlota Jin MD [address] [place] [address], [address] [phone] 01/12/2025 6:45 EDT Treatment [facility] - [place] [address] [place], [place] [phone] Carlota Jin MD 1 [facility], [facility] [address] [place] [phone] 01/15/2025 6:45 EDT Treatment [facility] - [place] [address] [place], [place] [address] Carlota Jin MD 1 [facility], [facility] 2 [place] [phone] 01/17/2025 6:45 EDT Treatment [facility] - [place] [address] [place], [place] [phone] Carlota Jin MD 1 [facility], [facility] 2 [place] [phone] 01/19/2025 6:45 EDT Treatment [facility] - [place] [address] [place], [place] [phone] Carlota Jin MD 1 [facility], [facility] 2 [place] [phone] 01/22/2025 6:45 EDT Treatment [facility] [address] [place], [place] [phone] Carlota Jin MD 1 [facility], [facility] 2 [place] [phone] 01/24/2025 6:45 EDT Treatment [facility] [address] [place], [place] [phone] Carlota Jin MD 1 [facility], [facility] 2 [place] [phone] 01/26/2025 6:45 EDT Treatment [facility] - [place] [address] [place], [place] [phone] Carlota Jin MD 1 [facility], [facility] 2 [place] [phone] 01/29/2025 6:45 EDT Treatment [facility] - [place] [address] [place], [place] [phone] Carlota Jin MD 1 [facility], [facility] 2 [place] [phone] 01/31/2025 6:45 EDT Treatment [facility] - [place] [address] [place], [place] [phone] Carlota Jin MD 1 [facility], [facility] 2 [place] [phone] 02/02/2025 6:45 EDT Treatment [facility] - [place] [address] [place], [place] [phone] Carlota Jin MD 1 [facility], [facility] 2 [place] [phone] 02/05/2025 6:45 EDT Treatment [facility] - [place] [address] [place], [place] [phone] Carlota Jin MD 1 [facility], [facility] 2 [place] [phone] 02/07/2025 6:45 EDT Treatment [facility] - [place] [address] [place] [phone] Carlota Jin MD 1 [facility], [facility] 2 [place] [phone] 02/09/2025 6:45 EDT Treatment [facility] - [place] [address] [place], [place] [phone] Carlota Jin MD 1 [facility], [facility] 2 [place] [phone] 02/12/2025 6:45 EDT Treatment [facility] - [place] [address] [place] [address] Carlota Jin MD 1 [facility], [address] [phone] 02/14/2025 6:45 EDT Treatment [facility] - [place] [address] [place], [place] [phone] Carlota Jin MD 1 [facility], [address] [phone] 02/16/2025 6:45 EDT Treatment [facility] - [place] [address] [place] [address] Carlota Jin MD 1 [facility], [facility] 2 [place] [phone] 02/19/2025 6:45 EDT Treatment [facility] - [place] [address] [place], [place] [phone] Carlota Jin MD 1 [facility], [facility] 2 [place] [phone] 02/21/2025 6:45 EDT Treatment [facility] - [place] [address] [place] [address] Carlota Jin MD 1 [facility], Level [address] [place] [phone] documented as of this encounter Procedures Procedure Name Priority Date/Time Associated Diagnosis Comments COMPLETE BLOOD COUNT Routine 04/05/2024 6:35 EDT ESRD (end stage renal disease) ([facility]) HEMODIALYSIS Routine 04/05/2024 6:29 EDT ESRD (end stage renal disease) ([facility]) documented in this encounter Results * (ABNORMAL) COMPLETE BLOOD COUNT (04/05/2024 6:35 EDT) WBC 9.57 4.00 - 10.40 K/cmm 04/05/2024 21:48 [facility] RBC 3.10(L) 4.36 - 5.78 M/cmm 04/05/2024 21:48 [facility] Hemoglobin 9.0(L) 13.8 - 17.3 g/dL 04/05/2024 21:48 [facility] HCT 28.9(L) 39.5 - 50.2 % 04/05/2024 21:48 [facility] MCV 93 81 - 95 fL 04/05/2024 21:48 [facility] MCH 29.0 27.6 - 33.0 pg 04/05/2024 21:48 [facility] MCHC 31.1(L) 32.8 - 36.4 g/dL 04/05/2024 21:48 [facility] RDW-CV 17.1(H) <14.2 % 04/05/2024 21:48 [facility] RDW-SD 59.0(H) <46.0 fl 04/05/2024 21:48 EDT [facility] PLT 328 141 - 377 K/cmm 04/05/2024 21:48 EDT [facility] MPV 11.7 9.5 - 12.7 fL 04/05/2024 21:48 EDT [facility] Blood VENOUS BLOOD / Unknown Venipuncture / Unknown 04/05/2024 6:35 EDT 04/05/2024 6:35 EDT Skye Gomez NP HEMATOLOGY & PF4 ORDERABLES Final Result [facility] [address] [place] [address] documented in this encounter Visit Diagnoses Diagnosis ESRD (end stage renal disease) ([facility])- Primary End stage renal disease Anemia of chronic renal failure, unspecified CKD stage Hypoalbuminemia Other disorders of plasma protein metabolism Secondary hyperparathyroidism ([facility]) Secondary hyperparathyroidism (of renal origin) documented in this encounter Administered Medications Inactive Administered Medications - up to 3 most recent administrations Medication Order MAR Action Action Date Dose Rate Site acetaminophen (TYLENOL) tablet 650 mg 650 mg, oral, EVERY 4 HOURS PRN, Starting on Wed04/05/24 at 0631, Until Wed04/05/24 at 1544, Pain, Routine, DialysisIndications:ESRD (end stage renal disease) ([facility]) Given 04/05/2024 6:48 EDT 650 mg calcium carbonate (TUMS) tablet 500 mg (200 mg elemental calcium) 2 Tablet 2 Tablet, oral, ONCE IN DIALYSIS, 1 dose, On Wed04/05/24 at 0645, Routine, DialysisIndications:ESRD (end stage renal disease) ([facility]),Secondary hyperparathyroidism ([facility]) Given 04/05/2024 6:49 EDT 2 Tablets epoetin ken (EPOGEN) 20,000 unit/2 mL injection 8,000 Units 8,000 Units, intravenous, ONCE IN DIALYSIS, 1 dose, On Wed04/05/24 at 0645, Routine, DialysisIndications:ESRD (end stage renal disease) ([facility]),Anemia of chronic renal failure, unspecified CKD stage Given 04/05/2024 6:48 EDT 8,000 Units heparin injection 7,000 Units 7,000 Units, intravenous, ONCE IN DIALYSIS, 1 dose, On Wed04/05/24 at 0645, Routine, Dialysis, Now x1 bolus 3400 units to be given at the beginning of dialysis 900 units/hour to be given over the course of dialysis (7000 units total). Stop 1 hour prior to end of treatment. To be administered per Policy [id number].Indications:ESRD (end stage renal disease) ([facility]) Given 04/05/2024 6:48 EDT 7,000 Units LiquaCel liquid protein liquid 30 mL 30 mL, oral, ONCE IN DIALYSIS, 1 dose, On Wed04/05/24 at 0645, Patient's flavor preference: either, RoutineIndications:ESRD (end stage renal disease) ([facility]),Hypoalbuminemia Given 04/05/2024 6:49 EDT 30 mL documented in this encounter Orders Dialysis Count Last Ordered Date First Orde red Date HEMODIALYSIS 1 04/05/2024 documented in this encounter Care Teams Equipment Oiler Relationship Specialty Start Date End Date Ken Greer MD [address] [place] [address] PCP - General 07/07/23 documented as of this encounter
--- OUTSIDE RECORDS SUMMARY | 2024-12-05 12:05 | XMS_ITS | Encounter Summary ---
Author Organization [facility] Address [address] [place] [address] Care Team Providers Care Pmp Project Manager Name Role Phone Ken Greer MD Primary Care Provider [phone] Kiel Powers Unavailable Unavailable Encounter Details Date Type Department Care Team (Late st Contact Info) Description 04/03/[address] [facility] [address] [place] [address] Alexa Estrada, [facility] [address] [place] [address] Social History Tobacco Use Types Packs/Day Years [...] Contact Info) Description 12/06/2024 6:45 EST Treatment [facility] - [place] [address] [place], [place] [phone] Carlota Jin MD 1 [facility], [facility] [address] [place] [phone] 12/08/2024 6:45 EST Treatment [facility] - [place] [address] [place], [place] [address] Carlota Jin MD 1 [facility], [facility] [address] [place] [phone] 12/11/2024 6:45 EST Treatment [facility] [address] [place], [place] [phone] Carlota Jin MD [address] [place] [address], [facility] [address] [place] [phone] 12/13/2024 6:45 EST Treatment [facility] - [place] [address] [place], [place] [address] Carlota Jin MD 1 [facility], [address] [phone] 12/15/2024 6:45 EST Treatment [facility] [place] [address] [place] [address] Carlota Jin MD 1 [facility], [address] [phone] 12/18/2024 6:45 EST Treatment [facility] [place] [address] [place], [place] [phone] Carlota Jin MD 1 [facility], [address] [phone] 12/20/2024 6:45 EST Treatment [facility] [place] [address] [place], [place] [phone] Carlota Jin MD 1 [facility], [address] [phone] 12/22/2024 6:45 EST Treatment [facility] [address] [place], [place] [phone] Carlota Jin MD [address] [phone] 12/25/2024 6:45 EST Treatment [facility] [place] [address] [place], [place] [phone] Carlota Jin MD 1 [facility], [address] [phone] 12/27/2024 6:45 EST Treatment [facility] - [place] [address] [place], [place] [id number] Carlota Jin MD 1 [facility], [facility] [address] [place] [phone] 12/29/2024 6:45 EST Treatment [facility] - [place] [address] [place], [place] [phone] Carlota Jin MD 1 [facility], [facility] [address] [place] [phone] 01/01/2025 6:45 EDT Treatment [facility] [place] [address] [place] [address] Carlota Jin MD 1 [facility], [facility] [address] [place] [phone] 01/03/2025 6:45 EDT Treatment [facility] [place] [address] [place], [place] [phone] Carlota Jin MD 1 [facility], [facility] [address] [place] [phone] 01/05/2025 6:45 EDT Treatment [facility] [place] [address] [place], [place] [phone] Carlota Jin MD 1 [facility], [facility] [address] [place] [phone] 01/08/2025 6:45 EDT Treatment [facility] - [place] [address] [place], [place] [address] Carlota Jin MD 1 [facility], [facility] [address] [place] [phone] 01/10/2025 6:45 EDT Treatment [facility] - [place] [address] [place], [place] [phone] Carlota Jin MD 1 [facility], [facility] [address] [place] [phone] 01/12/2025 6:45 EDT Treatment [facility] [place] [address] [place], [place] [phone] Carlota Jin MD 1 [facility], [facility] [address] [place] [phone] 01/15/2025 6:45 EDT Treatment [facility] [place] [address] [place], [place] [phone] Carlota Jin MD 1 [facility], [facility] [address] [place] [phone] 01/17/2025 6:45 EDT Treatment [facility] - [place] [address] [place], [place] [id number] Carlota Jin MD 1 [facility], [facility] [address] [place] [phone] 01/19/2025 6:45 EDT Treatment [facility] - [place] [address] [place], [place] [phone] Carlota Jin MD 1 [facility], [facility] [address] [place] [phone] 01/22/2025 6:45 EDT Treatment [facility] [place] [address] [place], [place] [phone] Carlota Jin MD 1 [facility], [facility] [address] [place] [phone] 01/24/2025 6:45 EDT Treatment [facility] [place] [address] [place], [place] [phone] Carlota Jin MD 1 [facility], [facility] [address] [place] [phone] 01/26/2025 6:45 EDT Treatment [facility] - [place] [address] [place], [place] [phone] Carlota Jin MD 1 [facility], [facility] [address] [place] [phone] 01/29/2025 6:45 EDT [facility] [address] [place] [address] Carlota Jin MD 1 [facility], [facility] [address] [place] [phone] 01/31/2025 6:45 EDT Treatment [facility] [address] [place], [place] [phone] Carlota Jin MD 1 [facility], [facility] [address] [place] [phone] 02/02/2025 6:45 EDT Treatment [facility] [place] [address] [place], [place] [phone] Carlota Jin MD 1 [facility], [facility] [address] [place] [phone] 02/05/2025 6:45 EDT Treatment [facility] - [place] [address] [place], [place] [phone] Carlota Jin MD [address] [place] [address], [address] [phone] 02/07/2025 6:45 EDT Treatment [facility] [place] [address] [place], [place] [phone] Carlota Jin MD [address] [place] [address], [address] [phone] 02/09/2025 6:45 EDT Treatment [facility] [place] [address] [place], [place] [phone] Carlota Jin MD [address] [place] [address], [facility] [address] [place] [phone] 02/12/2025 6:45 EDT Treatment [facility] [place] [address] [place], [place] [id number] Carlota Jin MD 1 [facility], [facility] [address] [place] [phone] 02/14/2025 6:45 EDT Treatment [facility] [place] [address] [place], [place] [phone] Carlota Jin MD 1 [facility], [facility] [address] [place] [phone] 02/16/2025 6:45 EDT Treatment [facility] [place] [address] [place], [place] [phone] Carlota Jni MD 1 [facility], [address] [phone] 02/19/2025 6:45 EDT Treatment [facility] [place] [address] [place], [place] [phone] Carlota Jin MD 1 [facility], [address] [phone] 02/21/2025 6:45 EDT Treatment [facility] [place] [address] [place], [place] [phone] Carlota Jin MD [address] [place] [phone] documented as of this encounter Visit Diagnoses Not on filedocumented in this encounter Additional Health Concerns Infection Onset Date Last Indicated Resolved Time R/O COVID-19 05/30/2024 05/30/2024 05/30/2024 20:5 0 EDT documented as of this encounter Care Teams Pmp Project Manager Relationship Specialty Start Date End Date Ken Greer MD [facility] [place] [address] PCP - General 07/07/23 Kiel Powers [facility] Neph[facility] 05/31/24 documented as of this encounter
--- OUTSIDE RECORDS SUMMARY | 2024-12-05 12:05 | XMS_ITS | Encounter Summary ---
Author Organization [facility] Address [address] [place] [address] Care Team Providers Care Senior Research Scientist Name Role Phone Ken Greer MD Primary Care Provider [phone] Reason for Visit * Episode Based Medications (Routine) - New Request Specialty Diagnoses / Procedures Referred By Nader pena Referred To Contact Diagnoses ESRD (end stage renal disease) ([facility]) Carlota Jin MD [address] [place] [phone] Phone: tel: fax: [facility] [address] [place] [address] Phone: tel: fax: Referral ID Status Reason Start Date Expiration Date V isits Requested Visits Authorized [id number] New Request 03/17/2024 1 1 Encounter Details Date Type Department Care Team (Latest Contact Info) Description 04/10/2024 6:45 EDT Treatment [facility] [address] [place], [place] [phone] Carlota Jin MD [address] [place] [phone] ESRD (end stage renal disease) ([facility]) (Primary Dx); Anemia of chronic renal failure, unspecified CKD stage; Hypoalbuminemia; Secondary hyperparathyroidism ([facility]) Social History Tobacco Use Types Packs/Day Years [...] - Temperature - - Respiratory Rate 16 04/10/2024 0618 EDT Oxygen Saturation - - Inhaled Oxygen Concentration - - Weight 83.9 kg (184 lb 15.5 oz) 04/10/2024 0624 EDT Height - - Body Mass Index 26.54 12/20/2023 2202 EST documented in this encounter [...] Flowsheet Note - Marcela Cox RN - 04/10/2024 1402 EDT 04/10/24 1041 Post-Hemodialysis Assessment Total Blood Processed (L) 90.36 Liters On Line Clearance: spKt/V 1.65 spKt/V Dialyzer Clearance Lightly streaked Treatment UFR (ml:kg:hr) 10.43 ml:kg:hr Fluid Removed (L) 3.5 L Post-Dialysis Scale Weight 98.3 kg (216 lb 11.4 oz) Wheelchair Weight 17.8 kg (39 lb 3.9 oz) Prosthesis Weight 0 kg (0 lb) Post-Treatment Weight (kg) 80.5 Treatment Weight Change (kg) 3.4 kg Day Target Weight (kg) 80.9 Post Sitting/Lying BP (!) 188/97 Post Sitting/Lying pulse 71 Temp 35.9 ??C (96.6 ??F) Temp src Temporal Minutes Short -243 Post access assessment AVF/AFG Hemostasis achieved Yes Note 10 minute hold both sites, no issues Orientation Alert and Oriented x3 [...] 12/06/2024 6:45 EST Treatment [facility] [address] [place], [place] [id number] Carlota Jin MD [address] [phone] 12/08/2024 6:45 EST Treatment [facility] [address] [place], [place] [address] Carlota Jin MD 1 [facility], [facility] [address] [place] [phone] 12/11/2024 6:45 EST Treatment [facility] [place] [address] [place], [place] [phone] Carlota Jin MD 1 [facility], [facility] [address] [place] [phone] 12/13/2024 6:45 EST Treatment [facility] [address] [place], [place] [phone] Carlota Jin MD [address] [facility], [facility] [address] [place] [phone] 12/15/2024 6:45 EST Treatment [facility] [address] [place], [place] [phone] Carlota Jin MD 1 [facility], [facility] [address] [place] [phone] 12/18/2024 6:45 EST Treatment [facility] [address] [place] [address] Carlota Jin MD [address] [facility], [facility] [address] [place] [phone] 12/20/2024 6:45 EST Treatment [facility] [address] [place], [place] [phone] Carlota Jin MD [address] [facility], [facility] [address] [place] [phone] 12/22/2024 6:45 EST Treatment [facility] [place] [address] [place], [place] [id number] Carlota Jin MD 1 [facility], [facility] [address] [place] [phone] 12/25/2024 6:45 EST Treatment [facility] [place] [address] [place], [place] [phone] Carlota Jin MD 1 [facility], [facility] [address] [place] [phone] 12/27/2024 6:45 EST Treatment [facility] [place] [address] [place], [place] [phone] Carlota Jin MD [address] [facility], [facility] [address] [place] [phone] 12/29/2024 6:45 EST Treatment [facility] [place] [address] [place], [place] [phone] Carlota iJn MD 1 [facility], [facility] [address] [place] [phone] 01/01/2025 6:45 EDT Treatment [facility] [place] [address] [place], [place] [id number] Carlota Jin MD 1 [facility], [facility] [address] [place] [phone] 01/03/2025 6:45 EDT Treatment [facility] [place] [address] [place], [place] [phone] Carlota Jin MD [address] [facility], [facility] [address] [place] [phone] 01/05/2025 6:45 EDT Treatment [facility] [place] [address] [place], [place] [address] Carlota Jin MD 1 [facility], [facility] [address] [place] [phone] 01/08/2025 6:45 EDT Treatment [facility] [place] [address] [place], [place] [phone] Carlota Jin MD 1 [facility], [facility] [address] [place] [phone] 01/10/2025 6:45 EDT Treatment [facility] [place] [address] [place], [place] [phone] Carlota Jin MD 1 [facility], [facility] [address] [place] [phone] 01/12/2025 6:45 EDT Treatment [facility] [place] [address] [place] [address] Carlota Jin MD [address] [facility], [facility] [address] [place] [phone] 01/15/2025 6:45 EDT Treatment [facility] [place] [address] [place], [place] [address] Carlota Jin MD 1 [facility], [facility] [address] [place] [phone] 01/17/2025 6:45 EDT Treatment [facility] [place] [address] [place], [place] [phone] Carlota Jin MD 1 [facility], [facility] [address] [place] [phone] 01/19/2025 6:45 EDT Treatment [facility] [place] [address] [place], [place] [phone] Carlota Jin MD [address] [place] [address], [facility] [address] [place] [phone] 01/22/2025 6:45 EDT Treatment [facility] [place] [address] [place], [place] [phone] Carlota Jin MD [address] [place] [address], [address] [phone] 01/24/2025 6:45 EDT Treatment [facility] [place] [address] [place], [place] [phone] Carlota Jin MD [address] [place] [address], [facility] [address] [place] [phone] 01/26/2025 6:45 EDT Treatment [facility] [place] [address] [place], [place] [phone] Carlota Jin MD 1 [facility], [facility] [address] [place] [phone] 01/29/2025 6:45 EDT Treatment [facility] [place] [address] [place], [place] [phone] Carlota Jin MD [address] [facility], [facility] [address] [place] [phone] 01/31/2025 6:45 EDT Treatment [facility] [place] [address] [place], [place] [phone] Carlota Jin MD [address] [facility], [facility] [address] [place] [phone] 02/02/2025 6:45 EDT Treatment [facility] [place] [address] [place], [place] [phone] Carlota Jin MD 1 [facility], [facility] [address] [place] [phone] 02/05/2025 6:45 EDT Treatment [facility] [place] [address] [place] [address] Carlota Jin MD 1 [facility], [facility] [address] [place] [phone] 02/07/2025 6:45 EDT Treatment [facility] [place] [address] [place] [address] Carlota Jin MD 1 [facility], [facility] [address] [place] [phone] 02/09/2025 6:45 EDT Treatment [facility] [place] [address] [place], [place] [phone] Carlota Jin MD 1 [facility], [facility] [address] [place] [phone] 02/12/2025 6:45 EDT Treatment [facility] [address] [place], [place] [phone] Carlota Jin MD 1 [facility], [address] [phone] 02/14/2025 6:45 EDT Treatment [facility] [address] [place], [place] [phone] Carlota Jin MD 1 [facility], [address] [phone] 02/16/2025 6:45 EDT Treatment [facility] [address] [place], [place] [phone] Carlota Jin MD 1 [facility], [address] [phone] 02/19/2025 6:45 EDT Treatment [facility] [address] [place], [place] [phone] Carlota Jin MD 1 [facility], [address] [phone] 02/21/2025 6:45 EDT Treatment [facility] [address] [place], [place] [phone] Carlota Jin MD 1 [facility], [address] [phone] documented as of this encounter Procedures Procedure Name Priority Date/Time Associated Diagnosis Comments HEMODIALYSIS Routine 04/10/2024 6:18 EDT ESRD (end stage renal disease) ([facility]) documented in this encounter Visit Diagnoses Diagnosis ESRD (end stage renal disease) ([facility])- Primary End stage renal disease Anemia of chronic renal failure, unspecified CKD stage Hypoalbuminemia Other disorders of plasma protein metabolism Secondary hyperparathyroidism ([facility]) Secondary hyperparathyroidism (of renal origin) documented in this encounter Administered Medications Inactive Administered Medications - up to 3 most recent administrations Medication Order MAR Action Action Date Dose Rate Site calcium carbonate (TUMS) tablet 500 mg (200 mg elemental calcium) 2 Tablet 2 Tablet, oral, ONCE IN DIALYSIS, 1 dose, On Wed04/10/24 at 0645, Routine, DialysisIndications:ESRD (end stage renal disease) ([facility]),Secondary hyperparathyroidism ([facility]) Given 04/10/2024 6:50 EDT 2 Tablets epoetin ken (EPOGEN) 20,000 unit/2 mL injection 8,000 Units 8,000 Units, intravenous, ONCE IN DIALYSIS, 1 dose, On Wed04/10/24 at 0645, Routine, DialysisIndications:ESRD (end stage renal disease) ([facility]),Anemia of chronic renal failure, unspecified CKD stage Given 04/10/2024 6:48 EDT 8,000 Units heparin injection 7,000 Units 7,000 Units, intravenous, ONCE IN DIALYSIS, 1 dose, On Wed04/10/24 at 0645, Routine, Dialysis, Now x1 bolus 3400 units to be given at the beginning of dialysis 900 units/hour to be given over the course of dialysis (7000 units total). Stop 1 hour prior to end of treatment. To be administered per Policy [id number].Indications:ESRD (end stage renal disease) ([facility]) Given 04/10/2024 6:48 EDT 7,000 Units LiquaCel liquid protein liquid 30 mL 30 mL, oral, ONCE IN DIALYSIS, 1 dose, On Wed04/10/24 at 0645, Patient's flavor preference: either, RoutineIndications:ESRD (end stage renal disease) ([facility]),Hypoalbuminemia Given 04/10/2024 6:48 EDT 30 mL documented in this encounter Orders Dialysis Count Last Ordered Date First Orde red Date HEMODIALYSIS 1 04/10/2024 documented in this encounter Care Teams Senior Research Scientist Relationship Specialty Start Date End Date Ken Greer MD [address] [place] [address] PCP - General 07/07/23 documented as of this encounter
--- OUTSIDE RECORDS SUMMARY | 2024-12-05 12:05 | XMS_ITS | Encounter Summary ---
Author Organization [facility] Address [address] [place] [address] Care Team Providers Care Scissors Sharpener Name Role Phone Ken Greer MD Primary Care Provider [phone] Reason for Visit * Reason Onset Date Comments Medication Questions 04/05/2024 Encounter Details Date Type Department Care Team (Late st Contact Info) Description 04/05/2024 Telephone Vascular Surgery and Endovascular Therapy - [address] [phone] Teja Whipple MD [address] [place] [address], [address] [place] [address] Medication Questions Social History Tobacco Use Types Packs/Day Years [...] Assessment Author No 12/20/2023 14:00 Angélica Lazo, RN * Are you blind or do [...] encounter Miscellaneous Notes * Telephone Encounter - Carlita Duarte RN - 04/05/2024 1057 EDT Reviewed notes when patient was admitted and eliquis was ordered by medical service due to prior TIA. Instructed to call PCP to see if patient should resume eliquis. * Telephone Encounter - Pau Heck - 04/05/2024 1024 EDT Hoda calling Vascular Surgery back to speak with Nurse Zazueta regarding Eliquis for patient. * Telephone Encounter - Carlita Duarte RN - 04/05/2024 1015 EDT Left message to call back. * Telephone Encounter - Chad Melendez - 04/05/2024 0943 EDT Patient was put on Eliquis from our office, has been to rehab recently and he was put on Heparin since being there. His just wanted to speak to a nurse to see how to best proceed. documented in this encounter Plan of Treatment Upcoming Encounters Date Type Department Care Team (Late st Contact Info) Description 12/06/2024 6:45 EST Treatment [facility] [place] [address] [place], [place] [phone] Carlota Jin MD 1 [facility], [facility] [address] [place] [phone] 12/08/2024 6:45 EST Treatment [facility] [address] [place], [place] [phone] Carlota Jin MD 1 [facility], [address] [phone] 12/11/2024 6:45 EST Treatment [facility] [address] [place], [place] [phone] Carlota Jin MD [address] [phone] 12/13/2024 6:45 EST Treatment [facility] [place] [address] [place], [place] [phone] Carlota Jin MD [address] [phone] 12/15/2024 6:45 EST Treatment [facility] [address] [place], [place] [phone] Carlota Jin MD [address] [place] [phone] 12/18/2024 6:45 EST Treatment [facility] [place] [address] [place], [place] [phone] Carlota Jin MD 1 [facility], [facility] [address] [place] [phone] 12/20/2024 6:45 EST Treatment [facility] [place] [address] [place], [place] [id number] Carlota Jin MD 1 [facility], [facility] [address] [place] [phone] 12/22/2024 6:45 EST Treatment [facility] [place] [address] [place], [place] [phone] Carlota Jin MD 1 [facility], [facility] [address] [place] [phone] 12/25/2024 6:45 EST Treatment [facility] [address] [place], [place] [id number] Carlota Jin MD 1 [facility], [facility] [address] [place] [phone] 12/27/2024 6:45 EST Treatment [facility] [address] [place], [place] [id number] Carlota Jin MD 1 [facility], [facility] [address] [place] [phone] 12/29/2024 6:45 EST Treatment [facility] [place] [address] [place], [place] [address] Carlota Jin MD 1 [facility], [facility] [address] [place] [phone] 01/01/2025 6:45 EDT Treatment [facility] [place] [address] [place], [place] [phone] Carlota Jin MD 1 [facility], [facility] [address] [place] [phone] 01/03/2025 6:45 EDT Treatment [facility] [place] [address] [place], [place] [id number] Carlota Jin MD 1 [facility], [facility] [address] [place] [phone] 01/05/2025 6:45 EDT Treatment [facility] [place] [address] [place], [place] [id number] Carlota Jin MD 1 [facility], [facility] [address] [place] [phone] 01/08/2025 6:45 EDT Treatment [facility] [place] [address] [place], [place] [phone] Carlota Jin MD 1 [facility], [facility] [address] [place] [phone] 01/10/2025 6:45 EDT Treatment [facility] [place] [address] [place], [place] [phone] Carlota Jin MD 1 [facility], [facility] [address] [place] [phone] 01/12/2025 6:45 EDT Treatment [facility] [place] [address] [place], [place] [id number] Carlota Jin MD 1 [facility], [facility] [address] [place] [phone] 01/15/2025 6:45 EDT Treatment [facility] [place] [address] [place], [place] [id number] Carlota Jin MD 1 [facility], [facility] [address] [place] [phone] 01/17/2025 6:45 EDT Treatment [facility] [place] [address] [place], [place] [phone] Carlota Jin MD 1 [facility], [facility] [address] [place] [phone] 01/19/2025 6:45 EDT Treatment [facility] [place] [address] [place], [place] [id number] Carlota Jin MD 1 [facility], [facility] [address] [place] [phone] 01/22/2025 6:45 EDT Treatment [facility] [place] [address] [place], [place] [phone] Carlota Jin MD 1 [facility], [facility] [address] [place] [phone] 01/24/2025 6:45 EDT Treatment [facility] [place] [address] [place], [place] [id number] Carlota Jin MD 1 [facility], [facility] 2 [place] [phone] 01/26/2025 6:45 EDT Treatment [facility] [place] [address] [place], [place] [id number] Carlota Jin MD 1 [facility], [facility] 2 [place] [phone] 01/29/2025 6:45 EDT Treatment [facility] [place] [address] [place], [place] [phone] Carlota Jin MD [address] [place] [address], [facility] [address] [place] [phone] 01/31/2025 6:45 EDT Treatment [facility] [place] [address] [place], [place] [id number] Carlota Jin MD 1 [facility], [facility] [address] [place] [phone] 02/02/2025 6:45 EDT Treatment [facility] [place] [address] [place], [place] [phone] Carlota Jin MD 1 [facility], [facility] 2 [place] [phone] 02/05/2025 6:45 EDT Treatment [facility] [place] [address] [place], [place] [phone] Carlota Jin MD 1 [facility], [facility] [address] [place] [phone] 02/07/2025 6:45 EDT Treatment [facility] [place] [address] [place], [place] [id number] Carlota Jin MD 1 [facility], [facility] [address] [place] [phone] 02/09/2025 6:45 EDT Treatment [facility] [place] [address] [place], [place] [id number] Carlota Jin MD 1 [facility], [facility] 2 [place] [phone] 02/12/2025 6:45 EDT Treatment [facility] [place] [address] [place] [address] Carlota Jin MD 1 [facility], [facility] 2 [place] [phone] 02/14/2025 6:45 EDT Treatment [facility] [place] [address] [place] [address] Carlota Jin MD 1 [facility], [facility] [address] [place] [phone] 02/16/2025 6:45 EDT Treatment [facility] [place] [address] [place], [place] [phone] Carlota Jin MD 1 [facility], [facility] [address] [place] [phone] 02/19/2025 6:45 EDT Treatment [facility] [address] [place], [place] [phone] Carlota Jin MD 1 [facility], [facility] [address] [place] [phone] 02/21/2025 6:45 EDT Treatment [facility] [address] [place], [place] [phone] Carlota Jin MD 1 [facility], [facility] [address] [place] [phone] documented as of this encounter Visit Diagnoses Not on filedocumented in this encounter Care Teams Scissors Sharpener Relationship Specialty Start Date End Date Ken Greer MD [facility] [place] [address] PCP - General 07/07/23 documented as of this encounter
--- OUTSIDE RECORDS SUMMARY | 2024-12-05 12:05 | XMS_ITS | Encounter Summary ---
Author Organization [facility] Address [address] [place] [address] Care Team Providers Care Splunk Developer Name Role Phone Ken Greer MD Primary Care Provider [phone] Encounter Details Date Type Department Care Team (Late st Contact Info) Description 04/03/2024 Orders Only [facility] Nephrology - [address] [id number] Carlota Jin MD [address] [place] [address], Level 2 [place] [address] Social History Tobacco Use Types [...] Date End Date sodium zirconium cyclosilicate (LOKELMA) 5 gram powder in packet Take 5 g by mouth daily. 30 Packet 11 04/03/2024 04/07/2024 documented in this encounter Plan of Treatment Upcoming Encounters Date Type Department Care Team (Late st Contact Info) Description 12/06/2024 6:45 EST [facility] [address] [place], [place] [phone] Carlota Jin MD [address] [place] [address], [facility] 2 [place] [address] 12/08/2024 6:45 EST Treatment [facility] [address] [place] [id number] Carlota Jin MD [address] [place] [address] 2 [place] [phone] 12/11/2024 6:45 EST Treatment [facility] [address] [place], [place] [phone] Carlota Jin MD 1 [facility], [facility] 2 [place] [phone] 12/13/2024 6:45 EST Treatment [facility] Dialysi - [place] [address] [place], [place] [id number] Carlota Jin MD [facility], [facility] 2 [place] [phone] 12/15/2024 6:45 EST Treatment [facility] D[facility]ysi - [place] [address] [place], [place] [id number] Carlota Jin MD 1 [facility], [facility] 2 [place] [phone] 12/18/2024 6:45 EST Treatment [facility]i - [place] [address] [place] [address] Carlota Jin MD 1 [facility], [facility] 2 [place] [phone] 12/20/2024 6:45 EST Treatment [facility]ysi - [place] [address] [place], [place] [id number] Carlota Jin MD 1 [facility], [facility] 2 [place] [phone] 12/22/2024 6:45 EST Treatment [facility] Dialysi - [place] [address] [place], [place] [id number] Carlota Jin MD 1 [facility], [facility] 2 [place] [phone] 12/25/2024 6:45 EST Treatment [facility]ysi - [place] [address] [place], [place] [id number] Carlota Jin MD 1 [facility], [facility] 2 [place] [phone] 12/27/2024 6:45 EST Treatment [facility] - [place] [address] [place], [place] [id number] Carlota Jin MD 1 [facility], [facility] 2 [place] [phone] 12/29/2024 6:45 EST Treatment [facility] Dialysi - [place] [address] [place] [address] Carlota Jin MD 1 [facility], [facility] 2 [place] [phone] 01/01/2025 6:45 EDT Treatment [facility] - [place] [address] [place], [place] [phone] Carlota Jin MD 1 [facility], [facility] 2 [place] [phone] 01/03/2025 6:45 EDT Treatment [facility]ysi [place] [address] [place], [place] [id number] Carlota Jin MD 1 [facility], [facility] 2 [place] [phone] 01/05/2025 6:45 EDT Treatment [facility] [address] [place], [place] [id number] Carlota Jin MD [facility], [facility] 2 [place] [phone] 01/08/2025 6:45 EDT Treatment [facility] - [place] [address] [place], [place] [phone] Carlota Jin MD [facility], [facility] 2 [place] [phone] 01/10/2025 6:45 EDT Treatment [facility]ysi - [place] [address] [place], [place] [id number] Carlota Jin MD 1 [facility], [facility] 2 [place] [phone] 01/12/2025 6:45 EDT Treatment [facility] - [place] [address] [place], [place] [phone] Carlota Jin MD 1 [facility], [facility] 2 [place] [phone] 01/15/2025 6:45 EDT Treatment [facility] - [place] [address] [place], [place] [id number] Carlota Jin MD 1 [facility], [facility] 2 [place] [phone] 01/17/2025 6:45 EDT Treatment [facility] - [place] [address] [place], [place] [id number] Carlota Jin MD [address] [facility], [facility] 2 [place] [phone] 01/19/2025 6:45 EDT Treatment [facility] - [place] [address] [place], [place] [id number] Carlota Jin MD 1 [facility], [facility] 2 [place] [phone] 01/22/2025 6:45 EDT Treatment [facility] Dialysi - [place] [address] [place], [place] [id number] Carlota Jin MD 1 [facility], [facility] 2 [place] [phone] 01/24/2025 6:45 EDT Treatment [facility] Dialysi - [place] [address] [place], [place] [phone] Carlota Jin MD 1 [facility], [facility] 2 [place] [phone] 01/26/2025 6:45 EDT Treatment [facility]i - [place] [address] [place], [place] [id number] Carlota Jin MD 1 [facility], [facility] 2 [place] [phone] 01/29/2025 6:45 EDT Treatment [facility] Dialysi - [place] [address] [place], [place] [id number] Carlota Jin MD 1 [facility], [facility] 2 [place] [phone] 01/31/2025 6:45 EDT Treatment [facility] Dialysi - [place] [address] [place], [place] [address] Carlota Jin MD 1 [facility], [facility] 2 [place] [phone] 02/02/2025 6:45 EDT Treatment [facility] - [place] [address] [place], [place] [address] [phone] Carlota Jin MD 1 [facility], [facility] 2 [place] [phone] 02/05/2025 6:45 EDT Treatment [facility] - [place] [address] [place], [place] [id number] Carlota Jin MD 1 [facility], [address] [phone] 02/07/2025 6:45 EDT Treatment [facility] - [place] [address] [place], [place] [phone] Carlota Jin MD 1 [facility], [address] [phone] 02/09/2025 6:45 EDT Treatment [facility] - [place] [address] [place], [place] [phone] Carlota Jin MD 1 [facility], [address] [phone] 02/12/2025 6:45 EDT Treatment [facility] - [place] [address] [place], [place] [phone] Carlota Jin MD [address] [facility], [facility] 2 [place] [phone] 02/14/2025 6:45 EDT Treatment [facility] - [place] [address] [place] [address] Carlota Jin MD 1 [facility], [facility] 2 [place] [phone] 02/16/2025 6:45 EDT Treatment [facility] - [place] [address] [place], [place] [phone] Carlota Jin MD 1 [facility], [address] [phone] 02/19/2025 6:45 EDT Treatment [facility] - [place] [address] [place] [address] Carlota Jin MD 1 [facility], [address] [phone] 02/21/2025 6:45 EDT Treatment [facility] - [place] [address] [place], [place] [phone] Carlota Jin MD 1 [facility], [facility] 2 [place] [phone] documented as of this encounter Visit Diagnoses Not on filedocumented in this encounter Care Teams Splunk Developer Relationship Specialty Start Date End Date Ken Greer MD [facility] [place] [address] PCP - General 07/07/23 documented as of this encounter
--- OUTSIDE RECORDS SUMMARY | 2024-12-05 12:05 | XMS_ITS | Encounter Summary ---
Author Organization [facility] Address [address] [place] [address] Care Team Providers Care Box Shook Patcher Name Role Phone Ken Greer MD Primary Care Provider [phone] Reason for Visit * Episode Based Medications (Routine) - New Request Specialty Diagnoses / Procedures Referred By Nader pena Referred To Contact Diagnoses ESRD (end stage renal disease) ([facility]) Carlota Jin MD [address] [place] [phone] Phone: tel: fax: [facility] - [place] [address] [place] [address] Phone: tel: fax: Referral ID Status Reason Start Date Expiration Date V isits Requested Visits Authorized [id number] New Request 03/17/2024 1 1 Encounter Details Date Type Department Care Team (Latest Contact Info) Description 04/14/2024 6:45 EDT Treatment [facility] [address] [place], [place] [phone] Carlota Jin MD [address] [place] [phone] ESRD (end stage renal disease) ([facility]) (Primary Dx); Anemia of chronic renal failure, unspecified CKD stage; Hypoalbuminemia; Secondary hyperparathyroidism ([facility]) Social History Tobacco Use Types Packs/Day [...] - Temperature - - Respiratory Rate 16 04/14/2024 0620 EDT Oxygen Saturation - - Inhaled Oxygen Concentration - - Weight 82.6 kg (182 lb 1.6 oz) 04/14/2024 0626 E DT Height - - Body Mass Index 26.13 12/20/2023 2202 EST documented in this encounter [...] Flowsheet Note - Keila Vizcarra RN - 04/14/2024 1106 EDT 04/14/24 1040 Post-Hemodialysis Assessment Total Blood Processed (L) 89.89 Liters On Line Clearance: spKt/V 1.69 spKt/V Dialyzer Clearance Lightly streaked Treatment UFR (ml:kg:hr) 11.02 ml:kg:hr Critline refill Not done Fluid Removed (L) 3.1 L Post-Dialysis Scale Weight 98.1 kg (216 lb 4.3 oz) Wheelchair Weight 19 kg (41 lb 14.2 oz) Prosthesis Weight 0 kg (0 lb) Post-Treatment Weight (kg) 79.1 Treatment Weight Change (kg) 3.5 kg Day Target Weight (kg) 80 Post Sitting/Lying BP 178/87 Post Sitting/Lying pulse 70 Temp 36.3 ??C (97.3 ??F) Temp src [...] Response to Treatment Tolerated treatment well. Removed 3100 mL UF goal without difficulty. Comments No issues during treatment. No concerns post treatment. documented in this encounter Plan of Treatment Upcoming Encounters Date Type Department Care Team (Late st Contact Info) Description 12/06/2024 6:45 EST Treatment [facility] D[facility] - [place] [address] [place], [place] [address] Carlota Jin MD 1 [facility], Level 2 [place] [address] 12/08/2024 6:45 EST Treatment [facility] D[facility] - [place] [address] [place] [address] Carlota Jin MD 1 [facility], Level [address] [place] [phone] 12/11/2024 6:45 EST Treatment [facility] D[facility] - [place] [address] [place], [place] [address] Carlota Jin MD 1 [facility], [facility] 2 [place] [phone] 12/13/2024 6:45 EST Treatment [facility] Dialysi - [place] [address] [place], [place] [phone] Carlota Jin MD 1 [facility], [facility] 2 [place] [phone] 12/15/2024 6:45 EST Treatment [facility] Dialysi - [place] [address] [place], [place] [phone] Carlota Jin MD 1 [facility], [facility] 2 [place] [phone] 12/18/2024 6:45 EST Treatment [facility] D[facility]ysi - [place] [address] [place] [address] Carlota Jin MD 1 [facility], [facility] 2 [place] [phone] 12/20/2024 6:45 EST Treatment [facility] Dialysi - [place] [address] [place], [place] [phone] Carlota Jin MD 1 [facility], [facility] 2 [place] [phone] 12/22/2024 6:45 EST Treatment [facility] D[facility]i - [place] [address] [place], [place] [phone] Carlota Jin MD 1 [facility], [facility] 2 [place] [phone] 12/25/2024 6:45 EST Treatment [facility] Dialysi - [place] [address] [place], [place] [phone] Carlota Jin MD 1 [facility], [facility] 2 [place] [phone] 12/27/2024 6:45 EST Treatment [facility] Dialysi - [place] [address] [place], [place] [phone] Carlota Jin MD 1 [facility], [facility] 2 [place] [phone] 12/29/2024 6:45 EST Treatment [facility] Dialysi - [place] [address] [place], [place] [phone] Carlota Jin MD 1 [facility], [facility] 2 [place] [phone] 01/01/2025 6:45 EDT Treatment [facility] Dialysi - [place] [address] [place], [place] [phone] Carlota Jin MD 1 [facility], [facility] 2 [place] [phone] 01/03/2025 6:45 EDT Treatment [facility] D[facility] - [place] [address] [place], [place] [phone] Carlota Jin MD 1 [facility], [facility] 2 [place] [phone] 01/05/2025 6:45 EDT Treatment [facility] D[facility] - [place] [address] [place], [place] [address] Carlota Jin MD 1 [facility], [facility] 2 [place] [phone] 01/08/2025 6:45 EDT Treatment [facility] D[facility]i - [place] [address] [place], [place] [phone] Carlota Jin MD 1 [facility], [facility] 2 [place] [phone] 01/10/2025 6:45 EDT Treatment [facility] Dialysi - [place] [address] [place] [address] Carlota Jin MD 1 [facility], [facility] 2 [place] [phone] 01/12/2025 6:45 EDT Treatment [facility] Dialysi [facility] [address] [place] [address] Carlota Jin MD 1 [facility], [facility] 2 [place] [phone] 01/15/2025 6:45 EDT Treatment [facility] Dialysi [place] [address] [place], [place] [phone] Carlota Jin MD 1 [facility], [facility] 2 [place] [phone] 01/17/2025 6:45 EDT Treatment [facility] Dialysi - [place] [address] [place], [place] [phone] Carlota Jin MD 1 [facility], [facility] 2 [place] [phone] 01/19/2025 6:45 EDT Treatment [facility] Dialysi - [place] [address] [place], [place] [phone] Carlota Jin MD 1 [facility], [facility] 2 [place] [phone] 01/22/2025 6:45 EDT Treatment [facility] Dialysi - [place] [address] [place] [address] Carlota Jin MD 1 [facility], [facility] 2 [place] [phone] 01/24/2025 6:45 EDT Treatment [facility] Dialysi - [place] [address] [place], [place] [phone] Carlota Jin MD 1 [facility], [facility] 2 [place] [phone] 01/26/2025 6:45 EDT Treatment [facility] Dial[facility]i - [place] [address] [place], [place] [phone] Carlota Jin MD 1 [facility], [facility] 2 [place] [phone] 01/29/2025 6:45 EDT Treatment [facility] D[facility] - [place] [address] [place] [address] Carlota Jin MD 1 [facility], [facility] 2 [place] [phone] 01/31/2025 6:45 EDT Treatment [facility] Dial[facility]i - [place] [address] [place], [place] [phone] Carlota Jin MD 1 [facility], [facility] 2 [place] [phone] 02/02/2025 6:45 EDT Treatment [facility] Dialysi - [place] [address] [place] [address] Carlota Jin MD 1 [facility], [address] [phone] 02/05/2025 6:45 EDT Treatment [facility] Dialysi - [place] [address] [place], [place] [phone] Carlota Jin MD 1 [facility], [address] [phone] 02/07/2025 6:45 EDT Treatment [facility] Dialysi - [place] [address] [place] [address] Carlota Jin MD 1 [facility], [facility] 2 [place] [phone] 02/09/2025 6:45 EDT Treatment [facility] D[facility] - [place] [address] [place], [place] [phone] Carlota Jin MD 1 [facility], [facility] 2 [place] [phone] 02/12/2025 6:45 EDT Treatment [facility] D[facility]i - [place] [address] [place], [place] [phone] Carlota Jin MD 1 [facility], [address] [phone] 02/14/2025 6:45 EDT Treatment [facility] Dial[facility]i - [place] [address] [place], [place] [phone] Carlota Jin MD [address] [place] [address], [address] [phone] 02/16/2025 6:45 EDT Treatment [facility] Dialysi - [place] [address] [place], [place] [id number] Carlota Jin MD 1 [facility], [address] [phone] 02/19/2025 6:45 EDT Treatment [facility] Dialysi - [place] [address] [place], [place] [phone] aCrlota Jin MD [address] [place] [address], [address] [phone] 02/21/2025 6:45 EDT Treatment [facility] Dialysi [facility] [address] [place], [place] [phone] Carlota Jin MD 1 [facility], [address] [phone] documented as of this encounter Procedures Procedure Name Priority Date/Time Associated Diagnosis Comments HEMODIALYSIS Routine 04/14/2024 6:20 EDT ESRD (end stage renal disease) ([facility]) documented in this encounter Visit Diagnoses Diagnosis ESRD (end stage renal disease) ([facility])- Primary End stage renal disease Anemia of chronic renal failure, unspecified CKD stage Hypoalbuminemia Other disorders of plasma protein metabolism Secondary hyperparathyroidism ([facility]) Secondary hyperparathyroidism (of renal origin) documented in this encounter Administered Medications Inactive Administered Medications - up to 3 most recent administrations Medication Order MAR Action Action Date Dose Rate Site calcium carbonate (TUMS) tablet 500 mg (200 mg elemental calcium) 2 Tablet 2 Tablet, oral, ONCE IN DIALYSIS, 1 dose, On Wed04/14/24 at 0645, Routine, DialysisIndications:ESRD (end stage renal disease) ([facility]),Secondary hyperparathyroidism ([facility]) Given 04/14/2024 6:59 EDT 2 Tablets epoetin ken (EPOGEN) 20,000 unit/2 mL injection 8,000 Units 8,000 Units, intravenous, ONCE IN DIALYSIS, 1 dose, On Wed04/14/24 at 0645, Routine, DialysisIndications:ESRD (end stage renal disease) ([facility]),Anemia of chronic renal failure, unspecified CKD stage Given 04/14/2024 6:59 EDT 8,000 Units heparin injection 7,000 Units 7,000 Units, intravenous, ONCE IN DIALYSIS, 1 dose, On Wed04/14/24 at 0645, Routine, Dialysis, Now x1 bolus 3400 units to be given at the beginning of dialysis 900 units/hour to be given over the course of dialysis (7000 units total). Stop 1 hour prior to end of treatment. To be administered per Policy [id number].Indications:ESRD (end stage renal disease) ([facility]) Given 04/14/2024 6:59 EDT 7,000 Units LiquaCel liquid protein liquid 30 mL 30 mL, oral, ONCE IN DIALYSIS, 1 dose, On Wed04/14/24 at 0645, Patient's flavor preference: either, RoutineIndications:ESRD (end stage renal disease) ([facility]),Hypoalbuminemia Given 04/14/2024 6:59 EDT 30 mL documented in this encounter Orders Dialysis Count Last Ordered Date First Orde red Date HEMODIALYSIS 1 04/14/2024 documented in this encounter Care Teams Box Shook Patcher Relationship Specialty Start Date End Date Ken Greer MD [address] [place] [address] PCP - General 07/07/23 documented as of this encounter
--- OUTSIDE RECORDS SUMMARY | 2024-12-05 12:05 | XMS_ITS | Encounter Summary ---
Author Organization [facility] Address [address] [place] [address] Care Team Providers Care Millwright Supervisor Name Role Phone Ken Greer MD Primary Care Provider [phone] Reason for Visit * Episode Based Medications (Routine) - New Request Specialty Diagnoses / Procedures Referred By Nader pena Referred To Contact Diagnoses ESRD (end stage renal disease) ([facility]) Carlota Jin MD [address] [place] [phone] Phone: tel: fax: [facility] [place] [address] [place] [address] Phone: tel: fax: Referral ID Status Reason Start Date Expiration Date V isits Requested Visits Authorized [id number] New Request 03/17/2024 1 1 Encounter Details Date Type Department Care Team (Latest Contact Info) Description 04/12/2024 6:45 EDT Treatment [facility] [address] [place], [place] [phone] Carlota Jin MD [address] [place] [phone] ESRD (end stage renal disease) ([facility]) (Primary Dx); Anemia of chronic renal failure, unspecified CKD stage; Hypoalbuminemia; Secondary hyperparathyroidism ([facility]) Social History Tobacco Use [...] - Temperature - - Respiratory Rate 16 04/12/2024 0632 EDT Oxygen Saturation - - Inhaled Oxygen Concentration - - Weight 80.5 kg (177 lb 7.5 oz) 04/12/2024 0632 E DT Height - - Body Mass Index 25.46 12/20/2023 2202 EST documented in this encounter [...] Flowsheet Note - Keila Vizcarra RN - 04/12/2024 1123 EDT 04/12/24 1051 Post-Hemodialysis Assessment Total Blood Processed (L) 88.3 Liters On Line Clearance: spKt/V 1.63 spKt/V Dialyzer Clearance Moderately streaked Treatment UFR (ml:kg:hr) 3.07 ml:kg:hr Final Critline Profile (%/hr) -0.49 Final Profile Profile A Critline refill Not done Fluid Removed (L) 1.3 L Post-Dialysis Scale Weight 97.3 kg (214 lb 8.1 oz) Wheelchair Weight 17.8 kg (39 lb 3.9 oz) Prosthesis Weight 0 kg (0 lb) Post-Treatment Weight (kg) 79.5 Treatment Weight Change (kg) 1 kg Day Target Weight (kg) 80 Post Sitting/Lying BP (!) 170/100 Post Sitting/Lying pulse 81 Temp 36.8 ??C (98.2 ??F) Temp src Temporal Minutes Short -246 Post access assessment AVF/AFG Hemostasis achieved Yes Note 10 min hold w/clamps Orientation Alert and Oriented x3 Yes Time Yes Place Yes Person Yes Cooperative Yes Disoriented No Discharge Ambulation Methods Departs via w/c;With patient transport Wrap up items Patient Response to Treatment Tolerated treatment well. Removed 1L UF goal without difficulty. UF goal adjusted per crit line, vital signs, and patient tolerance. Comments No issues during treatment, no concerns voiced post treatment. documented in this encounter Plan of Treatment Upcoming Encounters Date Type Department Care Team (Late st Contact Info) Description 12/06/2024 6:45 EST Treatment [facility] [place] [address] [place], [place] [phone] Carlota Jin MD 1 [facility] [address] [place] [phone] 12/08/2024 6:45 EST Treatment [facility] [place] [address] [place], [place] [phone] Carlota Jin MD 1 [facility], [facility] 2 [place] [phone] 12/11/2024 6:45 EST Treatment [facility] [place] [address] [place], [place] [address] [phone] Carlota Jin MD 1 [facility], [address] [phone] 12/13/2024 6:45 EST Treatment [facility] [place] [address] [place], [place] [phone] Carlota Jin MD 1 [facility], [address] [phone] 12/15/2024 6:45 EST Treatment [facility] [address] [place] [address] Carlota Jin MD 1 [facility], [address] [phone] 12/18/2024 6:45 EST Treatment [facility] [address] [place], [place] [phone] Carlota Jin MD [address] [phone] 12/20/2024 6:45 EST Treatment [facility] [address] [place], [place] [phone] Carlota Jin MD 1 [facility], [facility] 2 [place] [phone] 12/22/2024 6:45 EST Treatment [facility] [place] [address] [place], [place] [phone] Carlota Jin MD 1 [facility], [facility] 2 [place] [phone] 12/25/2024 6:45 EST Treatment [facility] [place] [address] [place], [place] [phone] Carlota Jin MD 1 [facility], [facility] 2 [place] [phone] 12/27/2024 6:45 EST Treatment [facility] [address] [place] [address] Carlota Jin MD 1 [facility], [facility] [address] [place] [phone] 12/29/2024 6:45 EST Treatment [facility] [address] [place], [place] [phone] Carlota Jin MD 1 [facility], [facility] [address] [place] [phone] 01/01/2025 6:45 EDT Treatment [facility] [address] [place], [place] [phone] Carlota Jin MD 1 [facility], [address] [place] [phone] 01/03/2025 6:45 EDT Treatment [facility] [place] [address] [place], [place] [phone] Carlota Jin MD 1 [facility], [facility] [address] [place] [phone] 01/05/2025 6:45 EDT Treatment [facility] [place] [address] [place], [place] [phone] Carlota Jin MD 1 [facility], [facility] [address] [place] [phone] 01/08/2025 6:45 EDT Treatment [facility] [place] [address] [place], [place] [phone] Carlota Jin MD 1 [facility], [address] [phone] 01/10/2025 6:45 EDT Treatment [facility] [place] [address] [place], [place] [phone] Carlota Jin MD [address] [phone] 01/12/2025 6:45 EDT Treatment [facility] [place] [address] [place], [place] [phone] Carlota Jin MD [address] [phone] 01/15/2025 6:45 EDT Treatment [facility] [place] [address] [place], [place] [phone] Carlota Jin MD 1 [facility], [address] [place] [phone] 01/17/2025 6:45 EDT Treatment [facility] [place] [address] [place], [place] [phone] Carlota Jin MD 1 [facility], [facility] 2 [place] [phone] 01/19/2025 6:45 EDT Treatment [facility] [place] [address] [place], [place] [phone] Carlota Jin MD 1 [facility], [facility] [address] [place] [phone] 01/22/2025 6:45 EDT Treatment [facility] [place] [address] [place], [place] [phone] Carlota Jin MD 1 [facility], [facility] [address] [place] [phone] 01/24/2025 6:45 EDT Treatment [facility] [place] [address] [place] [address] Carlota Jin MD 1 [facility], [facility] [address] [place] [phone] 01/26/2025 6:45 EDT Treatment [facility] [address] [place], [place] [phone] Carlota Jin MD 1 [facility], [facility] [address] [place] [phone] 01/29/2025 6:45 EDT Treatment [facility] [place] [address] [place], [place] [phone] Carlota Jin MD 1 [facility], [facility] [address] [place] [phone] 01/31/2025 6:45 EDT Treatment [facility] [place] [address] [place], [place] [phone] Carlota Jin MD 1 [facility], [facility] 2 [place] [phone] 02/02/2025 6:45 EDT Treatment [facility] [place] [address] [place], [place] [phone] Carlota Jin MD 1 [facility], [address] [phone] 02/05/2025 6:45 EDT Treatment [facility] [place] [address] [place], [place] [phone] Carlota Jin MD 1 [facility], [facility] [address] [place] [phone] 02/07/2025 6:45 EDT Treatment [facility] [place] [address] [place], [place] [phone] Carlota Jin MD 1 [facility], [facility] [address] [place] [phone] 02/09/2025 6:45 EDT Treatment [facility] [place] [address] [place], [place] [phone] Carlota Jin MD 1 [facility], [facility] [address] [place] [phone] 02/12/2025 6:45 EDT Treatment [facility] [place] [address] [place], [place] [address] Carlota Jin MD 1 [facility], [facility] [address] [place] [phone] 02/14/2025 6:45 EDT Treatment [facility] [place] [address] [place], [place] [phone] Carolta Jin MD 1 [facility], [facility] [address] [place] [phone] 02/16/2025 6:45 EDT Treatment [facility] [place] [address] [place] [address] Carlota Jin MD 1 [facility], [facility] [address] [place] [phone] 02/19/2025 6:45 EDT Treatment [facility] [address] [place] [address] Carlota Jin MD 1 [facility], [facility] [address] [place] [phone] 02/21/2025 6:45 EDT Treatment [facility] [place] [address] [place], [place] [phone] Carlota Jin MD 1 [facility], [facility] [address] [place] [phone] documented as of this encounter Procedures Procedure Name Priority Date/Time Associated Diagnosis Comments COMPLETE BLOOD COUNT Routine 04/12/2024 6:38 EDT ESRD (end stage renal disease) ([facility]) HEMODIALYSIS Routine 04/12/2024 6:32 EDT ESRD (end stage renal disease) ([facility]) documented in this encounter Results * (ABNORMAL) COMPLETE BLOOD COUNT (04/12/2024 6:38 EDT) WBC 10.95(H) 4.00 - 10.40 K/cmm 04/12/2024 22:01 [facility] RBC 3.49(L) 4.36 - 5.78 M/cmm 04/12/2024 22:01 [facility] Hemoglobin 9.9(L) 13.8 - 17.3 g/dL 04/12/2024 22:01 [facility] HCT 31.7(L) 39.5 - 50.2 % 04/12/2024 22:01 [facility] MCV 91 81 - 95 fL 04/12/2024 22:01 [facility] MCH 28.4 27.6 - 33.0 pg 04/12/2024 22:01 [facility] MCHC 31.2(L) 32.8 - 36.4 g/dL 04/12/2024 22:01 [facility] RDW-CV 16.3(H) <14.2 % 04/12/2024 22:01 [facility] RDW-SD 54.3(H) <46.0 fl 04/12/2024 22:01 [facility] PLT 344 141 - 377 K/cmm 04/12/2024 22:01 [facility] MPV 11.3 9.5 - 12.7 fL 04/12/2024 22:01 [facility] Blood VENOUS BLOOD / Unknown Venipuncture / Unknown 04/12/2024 6:38 EDT 04/12/2024 6:38 EDT us Skye Gomez [employer] HEMAT[facility] & PF4 ORDERABLES Final Result [facility] [address] [place], [place] [phone] documented in this encounter Visit Diagnoses Diagnosis ESRD (end stage renal disease) ([facility])- Primary End stage renal disease Anemia of chronic renal failure, unspecified CKD stage Hypoalbuminemia Other disorders of plasma protein metabolism Secondary hyperparathyroidism ([facility]) Secondary hyperparathyroidism (of renal origin) documented in this encounter Administered Medications Inactive Administered Medications - up to 3 most recent administrations Medication Order MAR Action Action Date Dose Rate Site calcium carbonate (TUMS) tablet 500 mg (200 mg elemental calcium) 2 Tablet 2 Tablet, oral, ONCE IN DIALYSIS, 1 dose, On Wed04/12/24 at 0700, Routine, DialysisIndications:ESRD (end stage renal disease) ([facility]),Secondary hyperparathyroidism ([facility]) Given 04/12/2024 7:22 EDT 2 Tablets epoetin ken (EPOGEN) 20,000 unit/2 mL injection 8,000 Units 8,000 Units, intravenous, ONCE IN DIALYSIS, 1 dose, On Wed04/12/24 at 0700, Routine, DialysisIndications:ESRD (end stage renal disease) ([facility]),Anemia of chronic renal failure, unspecified CKD stage Given 04/12/2024 7:22 EDT 8,000 Units heparin injection 7,000 Units 7,000 Units, intravenous, ONCE IN DIALYSIS, 1 dose, On Wed04/12/24 at 0700, Routine, Dialysis, Now x1 bolus 3400 units to be given at the beginning of dialysis 900 units/hour to be given over the course of dialysis (7000 units total). Stop 1 hour prior to end of treatment. To be administered per Policy [id number].Indications:ESRD (end stage renal disease) ([facility]) Given 04/12/2024 7:22 EDT 7,000 Units LiquaCel liquid protein liquid 30 mL 30 mL, oral, ONCE IN DIALYSIS, 1 dose, On Wed04/12/24 at 0700, Patient's flavor preference: either, RoutineIndications:ESRD (end stage renal disease) ([facility]),Hypoalbuminemia Given 04/12/2024 7:22 EDT 30 mL documented in this encounter Orders Dialysis Count Last Ordered Date First Orde red Date HEMODIALYSIS 1 04/12/2024 documented in this encounter Care Teams Millwright Supervisor Relationship Specialty Start Date End Date Ken Greer MD [address] [place] [address] PCP - General 07/07/23 documented as of this encounter
--- OUTSIDE RECORDS SUMMARY | 2024-12-05 12:05 | XMS_ITS | Encounter Summary ---
Author Organization [facility] Address [address] [place] [address] Care Team Providers Care Laminating Machine Offbearer Name Role Phone Ken Greer MD Primary Care Provider [phone] Reason for Visit * Episode Based Medications (Routine) - New Request Specialty Diagnoses / Procedures Referred By Nader pena Referred To Contact Diagnoses ESRD (end stage renal disease) ([facility]) Carlota Jin MD [address] [place] [phone] Phone: tel: fax: [facility] [place] [address] [place] [address] Phone: tel: fax: Referral ID Status Reason Start Date Expiration Date V isits Requested Visits Authorized [id number] New Request 03/17/2024 1 1 Encounter Details Date Type Department Care Team (Latest Contact Info) Description 04/17/2024 6:45 EDT Treatment [facility] [address] [place], [place] [phone] Carlota Jin MD [address] [place] [phone] ESRD (end stage renal disease) ([facility]) (Primary Dx); Anemia of chronic renal failure, unspecified CKD stage; Hypoalbuminemia; Secondary hyperparathyroidism ([facility]) Social History Tobacco Use Types [...] - Temperature - - Respiratory Rate 16 04/17/2024 0630 EDT Oxygen Saturation - - Inhaled Oxygen Concentration - - Weight 86.7 kg (191 lb 2.2 oz) 04/17/2024 0630 E DT Height - - Body Mass Index 27.43 12/20/2023 2202 EST documented in this encounter [...] Flowsheet Note - Keila Vizcarra RN - 04/17/2024 1337 EDT 04/17/24 1217 Post-Hemodialysis Assessment Total Blood Processed (L) 86.41 Liters On Line Clearance: spKt/V 1.54 spKt/V Dialyzer Clearance Lightly streaked Treatment UFR (ml:kg:hr) 15.82 ml:kg:hr Fluid Removed (L) 4.5 L Post-Dialysis Scale Weight 100.5 kg (221 lb 9 oz) Wheelchair Weight 19 kg (41 lb 14.2 oz) Prosthesis Weight 0 kg (0 lb) Post-Treatment Weight (kg) 81.5 Treatment Weight Change (kg) 5.2 kg Day Target Weight (kg) 82.7 Post Sitting/Lying BP (!) 178/91 Post Sitting/Lying pulse 72 Temp 36.8 ??C (98.2 ??F) Temp src Temporal Post access assessment AVF/AFG Hemostasis achieved Yes Orientation Alert and Oriented x3 Yes Time Yes Place Yes Person Yes Cooperative Yes Disoriented No Discharge Ambulation Methods Departs via w/c Wrap up items Patient Response to Treatment Tolerated treatment well. Removed 4.5L UF goal without difficulty. Comments No issues during treatment. No concerns voiced post treatment. * Dialysis Comprehensive - Carlota Jin MD - 04/17/2024 0645 EDT Images from the original note were not included. 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 associated with type 2diabetes mellitus ([facility]) ESRD (end stage renal disease) ([facility]) Primary hypertension [I10] Hearing loss Herniation of lumbar intervertebral disc with radiculopathy Hyperlipidemia Proteinuria Right sided numbness Secondary hyperparathyroidism ([facility]) TIA (transient ischemic attack) Type II or unspecified type diabetes mellitus with neurological manifestations, uncontrolled(250.62) Encounter for immunization Hypoalbuminemia Anemia of chronic renal failure Abnormal albumin Cellulitis and abscess of foot, except toes Encounter for therapeutic drug monitoring Diabetic foot infection ([facility]) [E11.628, L08.9] COVID Type 2 diabetes mellitus with chronic kidney disease on chronic dialysis, with long-term current use of insulin ([facility]) [E11.22, N18.6, Z99.2, Z79.4] Anemia of chronic renal failure, stage 5 ([facility]) [N18.5, D63.1] ESRD on hemodialysis ([facility]) Anemia in chronic kidney disease Anxiety and depression GERD (gastroesophageal reflux disease) Nicotine dependence, cigarettes, uncomplicated Non-healing open wound of heel Olecranon bursitis, right elbow Osteoarthrosis Peripheral neuropathy Retinopathy Sciatica Smoker Type 2 diabetes mellitus with diabetic neuropathy, unspecified ([facility]) Secondary hyperparathyroidism of renal origin ([facility]) Treatment Modality: Patient received information regarding [...] No Listing On-Hold? No No Transplant Center [facility] Comments Patient does not meet transplant criteria due to daily smoking cigarettes pt referred to transplant @ [facility] Current Dialysis Prescription: Hemodialysis Therapy Plan In-Center Hemodialysis 3 times a week Prescribed Weight (Kg): 80 Treatments Per Week: 3 Dialyzer: OPTIFLUX 250NR [...] Sign Review Prescribed Weight: Prescribed Weight (Kg): 81.5 I reviewed the patient's volume status with Nursing: Yes Average Interdialytic Fluid Gains: 04/12/2024 6:32 04/12/2024 10:51 04/14/2024 6:20 04/14/2024 6:26 04/14/2024 10:40 04/17/2024 6:27 04/17/2024 6:30 InterDialytic +/- Gain/Loss 0 3.1 3.1 7.6 7.6 Wt (pre) 80.5 82.6 82.6 86.7 86.7 Wt (post) 79.5 79.1 Treatment UFR (ml:kg:hr) 3.07 ml:kg:hr 11.02 ml:kg:hr BP (post) 202/103 173/90 173/90 187/80 187/80 Pulse(post) 75 72 72 70 70 Resp (/min) 16 16 16 Volume and blood pressure have been addressed with the following changes: decrease TW to 80 kg. Consistently able to achieve estimated dry weight? Yes Blood pressure is in range for patient? Yes Any adverse intradialytic symptoms? No Plan: Managed per protocol Physical Exam Constitutional No distress, somnolent, [id number] Respiratory: Unlabored breathing, diffuse crackles Cardiac: distnat Abdomen: soft Extremities: No edema; unilateral amputation Hospitalization Hospitalization in Previous 1 Month: No Emergency Room Visit in Previous 1 Month: No Access Management Current LDAs: Hemodialysis Arteriovenous Access 02/13/19 (Active) AV Fistula Present 04/17/24 0650 Site Assessment Clean;Dry;Intact;Thrill felt;Bruit heard 04/17/24 0650 Current State Active 04/17/24 0650 Status Accessed 04/17/24 0650 Is Maturing N 04/17/24 0650 Local Anesthetic None 04/17/24 0650 Site Prep Chlorhexidine 04/17/24 0650 Venous Needle Size 15 G 04/17/24 0650 Arterial/Generic Needle Size 15 G 04/17/24 0650 Accessed by: Sandra Rae 04/17/24 0650 Access Attempts 1 04/17/24 0650 Dressing Status/Care Clean/Dry/Intact 04/17/24 0650 Dressing Intervention Other (Comment) 12/22/23 1134 Patient [...] Tablet by mouth daily., Disp: , Rfl: fluticasone propionate (FLOVENT) 110 mcg/actuation inhaler, Inhale 1 Puff as directed 2 times daily., Disp: , Rfl: hydrOXYzine (ATARAX) 25 mg tablet, Take 1 Tablet by mouth daily as needed for Anxiety., Disp: , Rfl: insulin aspart U-100 (NOVOLOG FLEXPEN) 100 unit/mL (3 mL) injectable pen, Inject into the skin 3 times daily with meals. Per sliding scale, Disp: , Rfl: insulin glargine 100 unit/mL (3 mL) injection pen, Inject 15 Units into the skin at bedtime. (Patient not taking: Reported on 04/03/2024), Disp: , Rfl: insulin lispro (HUMALOG) 100 unit/mL vial, Inject into the skin 3 times daily before meals. 0-6 units subcutaneous q4hrs (Patient not taking: Reported on 04/03/2024), Disp: , Rfl: insulin pen needles 32G x 32, Brand: BD Ultra Fine Anny. ISS TID and levemir once daily, Disp: 100 Each, Rfl: 11 multivitamin (NEPHROVITE) 0.8 mg tablet, Take 1 Tablet by mouth at bedtime., Disp: , Rfl: nicotine (NICODERM CQ) 21 mg/24 hr patch, Place 1 Patch onto the skin daily., Disp: , Rfl: oxyCODONE (ROXICODONE) 5 mg immediate release tablet, Take 1 Tablet by mouth every 6 hours as needed for Pain. (Patient not taking: Reported on 04/03/2024), Disp: , Rfl: pantoprazole (PROTONIX) 40 mg tablet, Take 1 Tablet by mouth daily., Disp: , Rfl: patiromer calcium sorbitex (VELTASSA) 8.4 gram packet, Take 1 Packet by mouth daily., Disp: 30 Packet, Rfl: 11 pregabalin (LYRICA) 100 mg capsule, Take 1 Capsule by mouth 2 times daily. After dialysis, Disp: , Rfl: sevelamer hydrochloride (RENAGEL) 800 mg tablet, Take 2 Tablets by mouth 3 times daily with meals.,Disp: , Rfl: sildenafiL (REVATIO) 20 mg tablet, Take 1 Tablet by mouth if needed., Disp: , Rfl: tiZANidine (ZANAFLEX) 4 mg tablet, Take 1 Tablet by mouth every 8 hours as needed. (Patient not taking: Reported on 04/03/2024), Disp: , Rfl: Adjustment made to home medication: No Dialysis Medication Review Dialysis Plan Order Summary All Current Orders Interval Duration Due Hemodialysis Therapy Plan Dialysis Treatment In-Center Hemodialysis 3 times a week Week of 04/16/2024 Routine, ONE TIME Starting when released Prescribed Weight (Kg): 80 Treatments Per Week: 3 Dialyzer: OPTIFLUX 250NR Dialysate concentrate: Potassium 2 mEq/L Calcium 2.5 mEq/L Sodium NA+: Other Please specify: 136 Dialysate: Bicarb (mEq/L): 33 Dialysate Temperature (Centigrade): 36.5 BFR mL/min: 400 mL/min Dialysate Flow Rate (mL/min): 800 mL/min Duration of Treatment (hrs): 4 Hours Primary Access Site: AV Fistula Needle gauge: 15g 1 Dialysis - UF Profile: None Dialysis Last released: Wed04/17/2024 Oxygen Therapy (Age 3 yrs. to Adult) [...] endof treatment. To be administered per Policy [id number]. Last released: Wed04/17/2024 sodium chloride 0.9 % BOLUS 100 mL PRN PRN 100 mL, intravenous, PRN Starting when released Until Discontinued, Other, hypotension or cramping,Dialysis Last released: Never Dialysis Weekly Labs Complete Blood Count Weekly: Wed04/19/2024 Routine, ONE TIME Starting when released, Blood, Venous, Blood Dialysis Last released: Wed04/12/2024 Dialysis Monthly Labs Dialysis Iron (Includes Iron, IBC, and Ferritin) - Nephrology Use Only On the Wed of every 1 month Wed04/24/2024 Routine, ONE TIME Starting when released, Blood, Venous, Blood Dialysis Last released: Wed03/27/2024 Dialysis Routine- Dialysis Use Only On the Wed of every 1 month Wed04/24/2024 Routine, ONE TIME Starting when released, Blood, Blood, Venous Dialysis Last released: Wed03/27/2024 Postdialysis BUN with URR Calculation On the Wed of every 1 month Wed04/24/2024 Routine, ONE TIME Starting when released, Blood, Blood, Venous Dialysis Last released: Wed03/27/2024 Dialysis Quarterly Labs PTH Intact On the Mon of every 3 months Wed04/24/2024 Routine, ONE TIME Starting when released, Blood, Venous, Blood Dialysis Last released: Wed01/24/2024 Dialysis Annual Labs - October Dialysis Hepatitis- Dialysis Use Only On the Mon of every 12 months [...] released: Wed10/27/2023 Vitamin D (25,OH) On the Mon of every 12 months Wed10/30/2024 Routine, ONE TIME Starting when released, Blood, Venous, Blood Dialysis Last released: Wed10/27/2023 Dialysis Annual Labs - April Hepatitis C Ab w Reflex to HCV RNA by PCR On the Wed of every 12 months Wed04/24/2024 Routine, ONE TIME Starting when released, Blood, Venous, Blood Dialysis Last released: Wed04/26/2023 HEMODIALYSIS [facility] Medications epoetin ken (EPOGEN) 20,000 unit/2 mL injection 8,000 Units 3 times a week Week of 04/16/2024 8,000 Units, intravenous, ONCE IN DIALYSIS Starting when released, Dialysis Last released: Wed04/17/2024 HEMODIALYSIS NUTRITIONAL SUPPLEMENTS Nutritional Supplements LiquaCel liquid protein liquid 30 mL Every visit Every visit 30 mL, oral, ONCE IN DIALYSIS Starting when released Patient's flavor preference: either Last released: Wed04/17/2024 HEMODIALYSIS CKD MBD MEDS Medications calcium carbonate (TUMS) tablet 500 mg (200 mg elemental calcium) 2 Tablet Every visit Every visit 2 Tablet, oral, ONCE IN DIALYSIS Starting when released, Dialysis Last released: Wed04/17/2024 Additional Orders Dialysis Weekly Labs Potassium Once 10/25 remaining Wed04/19/2024 ONE TIME Starting when released, Blood, Venous, Blood Results Release to Patient (Note: Choosing Manual Release will only block results from tests performed at [facility] and does not apply for Miscellaneous Test Order): Immediate Last released: Never Adjustment made to dialysis medication: No Laboratory Results Dialysis Adequacy: spKt/V: 1.4 (Calculated from:; BUN Pre-Dialysis: 96 mg/dL at 04/03/2024 12:41; BUN Post-Dialysis: 30mg/dL at 04/03/2024 12:41; Pre-Treatment Weight (kg): 85.2 at 04/03/2024 6:24; Post-Treatment Weight (kg): 81.6 at 04/03/2024 10:40; Duration of Treatment (minutes): 241 minutes at 04/03/2024 10:40) Plan: Continue current dialysis prescription Anemia Management: Lab Results Component Value Date WBC 10.95 (H) 04/12/2024 HGB 9.9 (L) 04/12/2024 HGB 9.0 (L) 04/05/2024 HGB 8.5 (L) 03/29/2024 PLT 344 04/12/2024 FOLATE >24.0 10/27/2023 [id number] 607 10/27/2023 FERRITIN 363 (H) 03/27/2024 Current GEORGE/Dose: HEMODIALYSIS [facility] epoetin ken (EPOGEN) 20,000 unit/2 mL injection 8,000 Units 8,000 Units, intravenous, 3 times a week, ONCE [...] Component Value Date LABALBU 2.9 (L) 03/27/2024 ALKPHOS 113 03/27/2024 PHOS 8.4 (H) 03/27/2024 CALCIUM 8.8 03/27/2024 CALCCA 9.7 03/27/2024 PTH 329 (H) 01/24/2024 Vitamin D: cholecalciferol (Vitamin D3) - 25 mcg (1,000 unit) sevelamer hydrochloride - 800 mg This patient does not have an active medication from one of the medication groupers. Plan: Managed per protocol Potassium Management: Lab Results Component Value Date K 7.2 (H) 03/27/2024 Prescribed Potassium Concentrate: HEMODIALYSIS Ordered at: 04/17/24 0630 Dialysate concentrate: Potassium 2 mEq/L Calcium 2.5 mEq/L 04/17/2024 6:30 Last Dialysis Prescription released on: Selected bath: Potassium 2 mEq/L Calcium 2.5 mEq/L patiromer calcium sorbitex - 8.4 gram sevelamer hydrochloride - 800 mg Plan: He is unable to afford the co-pay for the Lokelma or Veltassa. Will continue education on low-K diet Nutrition: Lab Results Component Value Date LABALBU 2.9 (L) 03/27/2024 TP 6.4 12/19/2023 NA 134 (L) 03/27/2024 SERGLU 389 (H) 12/20/2023 HGBA1C 11.6 (H) 11/07/2023 Protein Supplements: This patient does not have an active medication from one of the medication groupers. Plan: Managed per protocol Comments: Ongoing hyperkalemia. He is unable to afford the co-pays for both Lokelma or Veltassa. Will continue education surrounding low-K diet. He is very somnolent during dialysis and not particularly engaged in conversation at the end of dialysis. He is hard of hearing which makes it difficult to communicate with him. I am concerned that he is not engaged in his health care. His is very involved and is a good support for him. MD Carlota Valdivia MD documented in this encounter Plan of Treatment Upcoming Encounters Date Type Department Care Team (Late st Contact Info) Description 12/06/2024 6:45 EST Treatment [facility] [address] [place] [phone] Carlota Jin MD 1 [facility], Level [address] [place] [phone] 12/08/2024 6:45 EST Treatment [facility] [address] [place] [phone] Carlota Jin MD 1 [facility], [address] [place] [phone] 12/11/2024 6:45 EST Treatment [facility] [place] [address] [place], [place] [phone] Carlota Jin MD 1 [facility], [facility] 2 [place] [phone] 12/13/2024 6:45 EST Treatment [facility] [place] [address] [place], [place] [phone] Carlota Jin MD 1 [facility], [facility] 2 [place] [phone] 12/15/2024 6:45 EST Treatment [facility] [place] [address] [place], [place] [phone] Carlota Jin MD 1 [facility], [facility] 2 [place] [phone] 12/18/2024 6:45 EST Treatment [facility] [place] [address] [place], [place] [phone] Carlota Jin MD 1 [facility], [facility] 2 [place] [phone] 12/20/2024 6:45 EST Treatment [facility] [place] [address] [place], [place] [phone] Carlota Jin MD 1 [facility], [facility] 2 [place] [phone] 12/22/2024 6:45 EST Treatment [facility] [place] [address] [place], [place] [phone] Carlota Jin MD 1 [facility], [facility] 2 [place] [phone] 12/25/2024 6:45 EST Treatment [facility] [place] [address] [place], [place] [phone] Carlota Jin MD 1 [facility], [facility] 2 [place] [phone] 12/27/2024 6:45 EST Treatment [facility] [place] [address] [place], [place] [phone] Carlota Jin MD [address] [place] [address], [facility] 2 [place] [phone] 12/29/2024 6:45 EST Treatment [facility] [place] [address] [place], [place] [phone] Carlota Jin MD [address] [place] [address], [facility] 2 [place] [phone] 01/01/2025 6:45 EDT Treatment [facility] [place] [address] [place], [place] [phone] Carlota Jin MD 1 [facility], [facility] 2 [place] [phone] 01/03/2025 6:45 EDT Treatment [facility] [place] [address] [place], [place] [phone] Carlota Jin MD 1 [facility], [facility] 2 [place] [phone] 01/05/2025 6:45 EDT Treatment [facility] [place] [address] [place], [place] [phone] Carlota Jin MD 1 [facility], [facility] 2 [place] [phone] 01/08/2025 6:45 EDT Treatment [facility] [place] [address] [place] [address] Carlota Jin MD 1 [facility], [address] [phone] 01/10/2025 6:45 EDT Treatment [facility] [place] [address] [place], [place] [phone] Carlota Jin MD 1 [facility], [address] [phone] 01/12/2025 6:45 EDT Treatment [facility] [place] [address] [place] [address] Carlota Jin MD 1 [facility], [facility] 2 [place] [phone] 01/15/2025 6:45 EDT Treatment [facility] [place] [address] [place], [place] [phone] Carlota Jin MD 1 [facility], [facility] 2 [place] [phone] 01/17/2025 6:45 EDT Treatment [facility] [place] [address] [place], [place] [phone] Carlota Jin MD 1 [facility], [facility] 2 [place] [phone] 01/19/2025 6:45 EDT Treatment [facility] [place] [address] [place], [place] [phone] Carlota Jin MD 1 [facility], [facility] 2 [place] [phone] 01/22/2025 6:45 EDT Treatment [facility] [place] [address] [place], [place] [address] Carlota Jin MD 1 [facility], [address] [phone] 01/24/2025 6:45 EDT Treatment [facility] [place] [address] [place], [place] [address] Carlota Jin MD 1 [facility], [facility] 2 [place] [phone] 01/26/2025 6:45 EDT Treatment [facility] [place] [address] [place], [place] [phone] Carlota Jin MD 1 [facility], [facility] 2 [place] [phone] 01/29/2025 6:45 EDT Treatment [facility] [place] [address] [place], [place] [address] Carlota Jin MD 1 [facility], [address] [phone] 01/31/2025 6:45 EDT Treatment [facility] [place] [address] [place], [place] [address] [phone] Carlota Jin MD 1 [facility], [address] [phone] 02/02/2025 6:45 EDT Treatment [facility] [place] [address] [place], [place] [address] Carlota Jin MD 1 [facility], [place] [phone] 02/05/2025 6:45 EDT Treatment [facility] [place] [address] [place] [address] Carlota Jin MD 1 [facility], [address] [phone] 02/07/2025 6:45 EDT Treatment [facility] [place] [address] [place], [place] [phone] Carlota Jin MD [address] [phone] 02/09/2025 6:45 EDT Treatment [facility] [place] [address] [place], [place] [address] Carlota Jin MD 1 [facility], [address] [phone] 02/12/2025 6:45 EDT Treatment [facility] [place] [address] [place], [place] [phone] Carlota Jin MD 1 [facility], [address] [phone] 02/14/2025 6:45 EDT Treatment [facility] [place] [address] [place], [place] [phone] Carlota Jin MD 1 [facility], [address] [phone] 02/16/2025 6:45 EDT Treatment [facility] [place] [address] [place], [place] [phone] Carlota Jin MD [address] [phone] 02/19/2025 6:45 EDT Treatment [facility] [place] [address] [place], [place] [phone] Carlota Jin MD 1 [facility], [address] [phone] 02/21/2025 6:45 EDT Treatment [facility] [place] [address] [place], [place] [phone] Carlota Jin MD 1 [facility], [address] [phone] documented as of this encounter Procedures Procedure Name Priority Date/Time Associated Diagnosis Comments HEMODIALYSIS Routine 04/17/2024 6:30 EDT ESRD (end stage renal disease) ([facility]) documented in this encounter Visit Diagnoses Diagnosis ESRD (end stage renal disease) ([facility])- Primary End stage renal disease Anemia of chronic renal failure, unspecified CKD stage Hypoalbuminemia Other disorders of plasma protein metabolism Secondary hyperparathyroidism ([facility]) Secondary hyperparathyroidism (of renal origin) documented in this encounter Administered Medications Inactive Administered Medications - up to 3 most recent administrations Medication Order MAR Action Action Date Dose Rate Site calcium carbonate (TUMS) tablet 500 mg (200 mg elemental calcium) 2 Tablet 2 Tablet, oral, ONCE IN DIALYSIS, 1 dose, On Wed04/17/24 at 0700, Routine, DialysisIndications:ESRD (end stage renal disease) ([facility]),Secondary hyperparathyroidism ([facility]) Given 04/17/2024 6:55 EDT 2 Tablets epoetin ken (EPOGEN) 20,000 unit/2 mL injection 8,000 Units 8,000 Units, intravenous, ONCE IN DIALYSIS, 1 dose, On Wed04/17/24 at 0700, Routine, DialysisIndications:ESRD (end stage renal disease) ([facility]),Anemia of chronic renal failure, unspecified CKD stage Given 04/17/2024 6:55 EDT 8,000 Units heparin injection 7,000 Units 7,000 Units, intravenous, ONCE IN DIALYSIS, 1 dose, On Wed04/17/24 at 0700, Routine, Dialysis, Now x1 bolus 3400 units to be given at the beginning of dialysis 900 units/hour to be given over the course of dialysis (7000 units total). Stop 1 hour prior to end of treatment. To be administered per Policy [id number].Indications:ESRD (end stage renal disease) ([facility]) Given 04/17/2024 6:55 EDT 7,000 Units LiquaCel liquid protein liquid 30 mL 30 mL, oral, ONCE IN DIALYSIS, 1 dose, On Wed04/17/24 at 0700, Patient's flavor preference: either, RoutineIndications:ESRD (end stage renal disease) ([facility]),Hypoalbuminemia Given 04/17/2024 6:56 EDT 30 mL documented in this encounter Historical Medications * This list may reflect changes made after this encounter. clopidogreL (PLAVIX) 75 mg tablet Take 1 Tablet by mouth daily. 04/12/2024 05/01/2024 added in this encounter Orders Dialysis Count Last Ordered Date First Orde red Date HEMODIALYSIS 1 04/17/2024 documented in this encounter Care Teams Laminating Machine Offbearer Relationship Specialty Start Date End Date Ken Greer MD [address] [place] [address] PCP - General 07/07/23 documented as of this encounter
--- OUTSIDE RECORDS SUMMARY | 2024-12-05 12:05 | XMS_ITS | Encounter Summary ---
Author Organization [facility] Address [address] [place] [address] Care Team Providers Care Senior Windows Administrator Name Role Phone Ken Greer MD Primary Care Provider [phone] Encounter Details Date Type Department Care Team (Late st Contact Info) Description 04/07/2024 Orders Only [facility] Nephrology - [address] [id number] Carlota Jin MD [address] [place] [address], Level 2 [place] [address] Social History Tobacco Use Types [...] Refills Last Filled Start Date End Date patiromer calcium sorbitex (VELTASSA) 8.4 gram packet Take 1 Packet by mouth daily. 30 Packet 11 04/07/2024 05/22/2024 documented in this encounter Plan of Treatment Upcoming Encounters Date Type Department Care Team (Late st Contact Info) Description 12/06/2024 6:45 EST Treatment [facility] [address] [place], [place] [address] Carlota Jin MD [address] [place] [address] 2 [place] [phone] 12/08/2024 6:45 EST Treatment [facility] Dialysi [facility] [address] [place] [id number] Carlota Jin MD [address] [place] [address] 2 [place] [phone] 12/11/2024 6:45 EST Treatment [facility] Dialysi [facility] [address] [place] [id number] Carlota Jin MD [facility] 2 [place] [phone] 12/13/2024 6:45 EST Treatment [facility] Dialysi - [place] [address] [place], [place] [id number] Carlota Jin MD 1 [facility], [facility] 2 [place] [phone] 12/15/2024 6:45 EST Treatment [facility] Dialysi - [place] [address] [place], [place] [id number] Carlota Jin MD 1 [facility], [facility] 2 [place] [phone] 12/18/2024 6:45 EST Treatment [facility] - [place] [address] [place] [address] Carlota Jin MD 1 [facility], [facility] 2 [place] [phone] 12/20/2024 6:45 EST Treatment [facility] - [place] [address] [place], [place] [id number] Carlota Jin MD 1 [facility], [facility] 2 [place] [phone] 12/22/2024 6:45 EST Treatment [facility] D[facility]ysi - [place] [address] [place], [place] [id number] Carlota Jin MD 1 [facility], [facility] 2 [place] [phone] 12/25/2024 6:45 EST Treatment [facility]ysi - [place] [address] [place], [place] [id number] Carlota Jin MD [address] [facility], [facility] 2 [place] [phone] 12/27/2024 6:45 EST Treatment [facility] - [place] [address] [place], [place] [id number] Carlota Jin MD [address] [facility], [facility] 2 [place] [phone] 12/29/2024 6:45 EST Treatment [facility] - [place] [address] [place], [place] [id number] Carlota Jin MD [address] [place] [address], [facility] 2 [place] [phone] 01/01/2025 6:45 EDT Treatment [facility] - [place] [address] [place], [place] [id number] Carlota Jin MD [address] [facility], [facility] 2 [place] [phone] 01/03/2025 6:45 EDT Treatment [facility] - [place] [address] [place], [place] [id number] Carlota Jin MD [address] [facility], [facility] 2 [place] [phone] 01/05/2025 6:45 EDT Treatment [facility] - [place] [address] [place], [place] [id number] Carlota Jin MD [address] [facility], [facility] 2 [place] [phone] 01/08/2025 6:45 EDT Treatment [facility] - [place] [address] [place], [place] [id number] Carlota Jin MD [address] [facility], [facility] 2 [place] [phone] 01/10/2025 6:45 EDT Treatment [facility] - [place] [address] [place] [address] Carlota Jin MD 1 [facility], [address] [phone] 01/12/2025 6:45 EDT Treatment [facility] - [place] [address] [place], [place] [id number] Carlota Jin MD [address] [facility], [address] [phone] 01/15/2025 6:45 EDT Treatment [facility] - [place] [address] [place] [address] Carlota Jin MD 1 [facility], [facility] 2 [place] [phone] 01/17/2025 6:45 EDT Treatment [facility] - [place] [address] [place], [place] [id number] Carlota Jin MD [address] [facility], [facility] 2 [place] [phone] 01/19/2025 6:45 EDT Treatment [facility] - [place] [address] [place], [place] [address] Carlota Jin MD [address] [facility], [facility] 2 [place] [phone] 01/22/2025 6:45 EDT Treatment [facility] - [place] [address] [place], [place] [id number] Carlota Jin MD [address] [facility], [facility] 2 [place] [phone] 01/24/2025 6:45 EDT Treatment [facility] - [place] [address] [place], [place] [address] Carlota Jin MD 1 [facility], [address] [phone] 01/26/2025 6:45 EDT Treatment [facility] - [place] [address] [place], [place] [address] Carlota Jin MD [address] [facility], [facility] 2 [place] [phone] 01/29/2025 6:45 EDT Treatment [facility] - [place] [address] [place], [place] [id number] Carlota Jin MD [address] [facility], [facility] 2 [place] [phone] 01/31/2025 6:45 EDT Treatment [facility] [place] [address] [place], [place] [address] Carlota Jin MD 1 [facility], [address] [phone] 02/02/2025 6:45 EDT Treatment [facility] - [place] [address] [place], [place] [address] [phone] Carlota Jin MD 1 [facility], [address] [phone] 02/05/2025 6:45 EDT Treatment [facility] - [place] [address] [place], [place] [address] Carlota Jin MD 1 [facility], [address] [phone] 02/07/2025 6:45 EDT Treatment [facility] [place] [address] [place] [address] Carlota Jin MD 1 [facility], [address] [phone] 02/09/2025 6:45 EDT Treatment [facility] - [place] [address] [place], [place] [id number] Carlota Jin MD [address] [phone] 02/12/2025 6:45 EDT Treatment [facility] - [place] [address] [place], [place] [address] Carlota Jin MD 1 [facility], [address] [phone] 02/14/2025 6:45 EDT Treatment [facility] - [place] [address] [place], [place] [id number] Carlota Jin MD [address] [place] [phone] 02/16/2025 6:45 EDT Treatment [facility]i - [place] [address] [place], [place] [id number] Carlota Jin MD [address] [place] [phone] 02/19/2025 6:45 EDT Treatment [facility] - [place] [address] [place], [place] [id number] Carlota Jin MD [address] [place] [phone] 02/21/2025 6:45 EDT Treatment [facility] - [place] [address] [place], [place] [id number] Carlota Jin MD [address] [place] [phone] documented as of this encounter Visit Diagnoses Not on filedocumented in this encounter Discontinued Medications Medication Sig Discontinue Reason Start Date End Da te sodium zirconium cyclosilicate (LOKELMA) 5 gram powder in packet Take 5 g by mouth daily. Alternate therapy 04/03/2024 04/07/2024 documented as of this encounter Care Teams Senior Windows Administrator Relationship Specialty Start Date End Date Ken Greer MD [facility] [place] [address] PCP - General 07/07/23 documented as of this encounter
--- OUTSIDE RECORDS SUMMARY | 2024-12-05 12:05 | XMS_ITS | Encounter Summary ---
Author Organization [facility] Address [address] [place] [address] Care Team Providers Care Brick Catcher Name Role Phone Ken Greer MD Primary Care Provider [phone] Encounter Details Date Type Department Care Team (Late st Contact Info) Description 04/03/2024 Documentation Visit [address] [place], [place] [address] Marcela Cox, VIDYA Social History Tobacco Use [...] Progress Notes * Marcela Cox RN - 04/03/2024 1409 EDT 04/03/24 14:51 [facility] DIALYSIS MEDICATION RECONCILIATION Medication review of home medications (prescriptions, [id number], herbals, vitamin/mineral/dietary (nutritional) supplements, medical marijuana, and recreational) was completed through: Information obtained from pharmacotherapy network (e.g. [facility]), hospital or other provider. Current Medications Current Outpatient Medications Medication acetaminophen [...] tablet fluticasone propionate (FLOVENT) 110 mcg/actuation inhaler hydrOXYzine (ATARAX) 25 mg tablet insulin aspart U-100 (NOVOLOG FLEXPEN) 100 unit/mL (3 mL) injectable pen insulin glargine 100 unit/mL (3 mL) injection pen insulin lispro (HUMALOG) 100 unit/mL vial insulin pen needles 32G x 5/32 multivitamin (NEPHROVITE) 0.8 mg tablet nicotine (NICODERM CQ) 21 mg/24 hr patch oxyCODONE (ROXICODONE) 5 mg immediate release tablet pantoprazole (PROTONIX) 40 mg tablet pregabalin (LYRICA) 100 mg capsule sevelamer hydrochloride (RENAGEL) 800 mg tablet sildenafiL [...] Info) Description 12/06/2024 6:45 EST Treatment [facility] [address] [place], [place] [id number] Carlota Jin MD 1 [facility], [address] [phone] 12/08/2024 6:45 EST Treatment [facility] [address] [place], [place] [id number] Carlota Jin MD [address] [phone] 12/11/2024 6:45 EST Treatment [facility] [address] [place], [place] [id number] Carlota Jin MD [address] [phone] 12/13/2024 6:45 EST Treatment [facility] [address] [place], [place] [id number] Carlota Jin MD 1 [facility], Level 2 [place] [phone] 12/15/2024 6:45 EST Treatment [facility] - [place] [address] [place], [place] [address] Carlota Jin MD 1 [facility] 2 [place] [phone] 12/18/2024 6:45 EST Treatment [facility] - [place] [address] [place], [place] [id number] Carlota Jin MD 1 [facility], [facility] 2 [place] [phone] 12/20/2024 6:45 EST Treatment [facility] - [place] [address] [place], [place] [id number] Carlota Jin MD 1 [facility], [facility] 2 [place] [phone] 12/22/2024 6:45 EST Treatment [facility] - [place] [address] [place] [address] Carlota Jin MD 1 [facility], [facility] 2 [place] [phone] 12/25/2024 6:45 EST Treatment [facility] - [place] [address] [place], [place] [id number] Carlota Jin MD 1 [facility], [facility] 2 [place] [phone] 12/27/2024 6:45 EST Treatment [facility] - [place] [address] [place], [place] [id number] Carlota Jin MD 1 [facility], [facility] 2 [place] [phone] 12/29/2024 6:45 EST Treatment [facility] - [place] [address] [place], [place] [id number] Carlota Jin MD 1 [facility], [facility] 2 [place] [phone] 01/01/2025 6:45 EDT Treatment [facility] - [place] [address] [place], [place] [id number] Carlota Jin MD 1 [facility], [facility] 2 [place] [phone] 01/03/2025 6:45 EDT Treatment [facility] - [place] [address] [place], [place] [id number] Carlota Jin MD 1 [facility], [facility] 2 [place] [phone] 01/05/2025 6:45 EDT Treatment [facility] - [place] [address] [place], [place] [id number] Carlota Jin MD 1 [facility], [facility] 2 [place] [phone] 01/08/2025 6:45 EDT Treatment [facility] - [place] [address] [place], [place] [id number] Carlota Jin MD 1 [facility], [facility] 2 [place] [phone] 01/10/2025 6:45 EDT Treatment [facility] - [place] [address] [place], [place] [address] Carlota Jin MD 1 [facility], [facility] 2 [place] [phone] 01/12/2025 6:45 EDT Treatment [facility] - [place] [address] [place], [place] [id number] Carlota Jin MD 1 [facility], [facility] 2 [place] [phone] 01/15/2025 6:45 EDT Treatment [facility] - [place] [address] [place] [address] Carlota Jin MD 1 [facility], [facility] 2 [place] [phone] 01/17/2025 6:45 EDT Treatment [facility] - [place] [address] [place], [place] [id number] Carlota Jin MD 1 [facility], [facility] 2 [place] [phone] 01/19/2025 6:45 EDT Treatment [facility] - [place] [address] [place], [place] [id number] Carlota Jin MD 1 [facility], [facility] 2 [place] [phone] 01/22/2025 6:45 EDT Treatment [facility] - [place] [address] [place], [place] [id number] Carlota Jin MD 1 [facility], [facility] 2 [place] [phone] 01/24/2025 6:45 EDT Treatment [facility] - [place] [address] [place], [place] [id number] Carlota Jin MD 1 [facility], [facility] 2 [place] [phone] 01/26/2025 6:45 EDT Treatment [facility] - [place] [address] [place] [address] Carlota Jin MD 1 [facility], [address] [phone] 01/29/2025 6:45 EDT Treatment [facility] - [place] [address] [place], [place] [id number] Carlota Jin MD 1 [facility], [facility] 2 [place] [phone] 01/31/2025 6:45 EDT Treatment [facility] - [place] [address] [place], [place] [id number] Carlota Jin MD 1 [facility], [facility] 2 [place] [phone] 02/02/2025 6:45 EDT Treatment [facility] [place] [address] [place] [address] Carlota Jin MD 1 [facility], [facility] 2 [place] [phone] 02/05/2025 6:45 EDT Treatment [facility] - [place] [address] [place] [address] Carlota Jin MD 1 [facility], [facility] 2 [place] [phone] 02/07/2025 6:45 EDT Treatment [facility] - [place] [address] [place] [address] Carlota Jin MD 1 [facility], [address] [phone] 02/09/2025 6:45 EDT Treatment [facility] [place] [address] [place] [address] Carlota Jin MD 1 [facility], [address] [phone] 02/12/2025 6:45 EDT Treatment [facility] [place] [address] [place] [address] Carlota Jin MD 1 [facility], [facility] 2 [place] [phone] 02/14/2025 6:45 EDT Treatment [facility] [place] [address] [place], [place] [id number] Carlota Jin MD 1 [facility], [facility] 2 [place] [phone] 02/16/2025 6:45 EDT Treatment [facility] [address] [place], [place] [id number] Carlota Jin MD [address] [place] [address], [facility] 2 [place] [phone] 02/19/2025 6:45 EDT [facility] [address] [place], [place] [id number] Carlota Jin MD [address] [place] [address], [facility] 2 [place] [phone] 02/21/2025 6:45 EDT Treatment [facility] [address] [place], [place] [id number] Carlota Jin MD [address] [place] [address], [facility] 2 [place] [phone] documented as of this encounter Visit Diagnoses Not on filedocumented in this encounter Discontinued Medications Medication Sig Discontinue Reason Start Date End Da te pregabalin (LYRICA) 75 mg capsule Take 1 Capsule by mouth at bedtime. Daily Max: 75 mg Therapy completed 04/03/2024 documented as of this encounter Historical Medications * This list may reflect changes made after this encounter. insulin aspart U-100 (NOVOLOG FLEXPEN) 100 unit/mL (3 mL) injectable pen Inject into the skin 3 times daily with meals. Per sliding scale apixaban (ELIQUIS) 5 mg tablet Take 1 Tablet by mouth 2 times daily. DULoxetine (CYMBALTA) 20 mg delayed release capsule Take 1 Capsule by mouth 2 times daily. albuterol 90 mcg/actuation HFA aerosol inhaler inhaler Inhale 2 Puffs as directed every 4 hours. sildenafiL (REVATIO) 20 mg tablet Take 1 Tablet by mouth if needed. 06/19/2024 nicotine (NICODERM CQ) 21 mg/[address] 1 Patch onto the skin daily. 06/19/2024 fluticasone propionate (FLOVENT) 110 mcg/actuation inhaler Inhale 1 Puff as directed 2 times daily. 06/19/2024 famotidine (PEPCID) 40 mg tablet Take 1 Tablet by mouth daily. 06/19/2024 hydrOXYzine (ATARAX) 25 mg tablet Take 1 Tablet by mouth daily as needed for Anxiety. 06/19/2024 added in this encounter Care Teams Brick Catcher Relationship Specialty Start Date End Date Ken Greer MD [address] [place] [address] PCP - General 07/07/23 documented as of this encounter
--- OUTSIDE RECORDS SUMMARY | 2024-12-05 12:06 | XMS_ITS | Encounter Summary ---
Author Organization [facility] Address [address] [place] [address] Care Team Providers Care Stock Drier Tender Name Role Phone Ken Greer MD Primary Care Provider [phone] Encounter Details Date Type Department Care Team (Late st Contact Info) Description 03/29/[address] [facility] [address] [place], [place] [id number] Yoanna Degroot, VIDYA Social History Tobacco Use [...] Info) Description 12/06/2024 6:[address] [facility] [place] [address] [place], [place] [id number] Carlota Jin MD 1 [facility], [facility] [address] [place] [phone] 12/08/2024 6:[address] [facility] [place] [address] [place], [place] [id number] Carlota Jin MD 1 [facility] [address] [place] [phone] 12/11/2024 6:[address] [facility] [place] [address] [place], [place] [id number] Carlota Jin MD 1 [facility], [facility] [address] [place] [phone] 12/13/2024 6:[address] [facility] [address] [place], [place] [id number] Carlota Jin MD 1 [facility], [facility] [address] [place] [phone] 12/15/2024 6:[address] [facility] [place] [address] [place], [place] [id number] Carlota Jin MD 1 [facility], [facility] [address] [place] [phone] 12/18/2024 6:[address] [facility] [place] [address] [place], [place] [id number] Carlota Jin MD 1 [facility], [facility] [address] [place] [phone] 12/20/2024 6:[address] [facility] [place] [address] [place], [place] [id number] Carlota Jin MD 1 [facility], [facility] [address] [place] [phone] 12/22/2024 6:[address] [facility] [address] [place], [place] [id number] Carlota Jin MD 1 [facility], [facility] [address] [place] [phone] 12/25/2024 6:[address] [facility] [address] [place], [place] [id number] Carlota Jin MD 1 [facility], [facility] [address] [place] [phone] 12/27/2024 6:[address] [facility] [place] [address] [place], [place] [id number] Carlota Jin MD 1 [facility], [facility] [address] [place] [phone] 12/29/2024 6:[address] [facility] [place] [address] [place], [place] [id number] Carlota Jin MD 1 [facility], [address] [phone] 01/01/2025 6:[address] [facility] [place] [address] [place], [place] [id number] Carlota Jin MD 1 [facility], [address] [phone] 01/03/2025 6:[address] [facility] [place] [address] [place], [place] [id number] Carlota Jin MD 1 [facility], [address] [phone] 01/05/2025 6:[address] [facility] [place] [address] [place], [place] [id number] Carlota Jin MD [address] [place] [address], [facility] 2 [place] [phone] 01/08/2025 6:[address] [facility] [place] [address] [place], [place] [id number] Carlota Jin MD 1 [facility], Level [address] [place] [phone] 01/10/2025 6:[address] [facility] [place] [address] [place], [place] [address] Carlota Jin MD 1 [facility], [facility] [address] [place] [phone] 01/12/2025 6:[address] [facility] [place] [address] [place], [place] [id number] Carlota Jin MD 1 [facility], [facility] 2 [place] [phone] 01/15/2025 6:[address] [facility] [place] [address] [place], [place] [id number] Carlota Jin MD 1 [facility], [facility] [address] [place] [phone] 01/17/2025 6:[address] [facility] [address] [place], [place] [id number] Carlota Jin MD 1 [facility], [facility] 2 [place] [phone] 01/19/2025 6:[address] [facility] [address] [place], [place] [id number] Carlota Jin MD 1 [facility], [facility] 2 [place] [phone] 01/22/2025 6:[address] [facility] [place] [address] [place], [place] [id number] Carlota Jin MD 1 [facility], [facility] 2 [place] [phone] 01/24/2025 6:[address] [facility] [place] [address] [place], [place] [id number] Carlota Jin MD 1 [facility], [facility] 2 [place] [phone] 01/26/2025 6:[address] [facility] [place] [address] [place], [place] [id number] Carlota Jin MD 1 [facility], [facility] 2 [place] [phone] 01/29/2025 6:[address] [facility] [place] [address] [place], [place] [id number] Carlota Jin MD 1 [facility], [facility] [address] [place] [phone] 01/31/2025 6:[address] [facility] [place] [address] [place], [place] [id number] Carlota Jin MD 1 [facility], [facility] [address] [place] [phone] 02/02/2025 6:[address] [facility] [place] [address] [place], [place] [id number] Carlota Jin MD 1 [facility], [facility] 2 [place] [phone] 02/05/2025 6:[address] [facility] [place] [address] [place], [place] [id number] Carlota Jin MD 1 [facility], [facility] 2 [place] [phone] 02/07/2025 6:[address] [facility] [place] [address] [place] [address] Carlota Jin MD 1 [facility], [address] [phone] 02/09/2025 6:[address] [facility] [place] [address] [place], [place] [id number] Carlota Jin MD 1 [facility], [address] [phone] 02/12/2025 6:[address] [facility] [place] [address] [place] [address] Carlota Jin MD 1 [facility], [facility] 2 [place] [phone] 02/14/2025 6:[address] [facility] [place] [address] [place], [place] [id number] Carlota Jin MD 1 [facility], [facility] 2 [place] [phone] 02/16/2025 6:[address] [facility] [address] [place], [place] [id number] Carlota Jin MD 1 [facility], [facility] 2 [place] [phone] 02/19/2025 6:[address] [facility] [address] [place], [place] [id number] Carlota Jin MD [address] [place] [address], [facility] [address] [place] [phone] 02/21/2025 6:[address] [facility] [address] [place], [place] [id number] Carlota Jin MD [address] [place] [address], [facility] [address] [place] [phone] documented as of this encounter Visit Diagnoses Not on filedocumented in this encounter Additional Health Concerns Infection Onset Date Last Indicated Resolved Time COVID-19 Comment:Collected @ [facility]. 03/12/2024 03/13/2024 04/01/2024 22: 15 EDT documented as of this encounter Care Teams Stock Drier Tender Relationship Specialty Start Date End Date Ken Greer MD [address] [place] [address] PCP - General 07/07/23 documented as of this encounter
--- OUTSIDE RECORDS SUMMARY | 2024-12-05 12:06 | XMS_ITS | Encounter Summary ---
Author Organization [facility] Address [address] [place] [address] Care Team Providers Care Application Integrator Name Role Phone Ken Greer MD Primary Care Provider [phone] Encounter Details Date Type Department Care Team (Latest Contact Info) Description 03/15/2024 6:45 EDT Treatment [facility] [address] [place], [place] [id number] Carlota Jin MD 1 [facility], Level [address] [place] [phone] ESRD (end stage renal disease) ([facility]) (Primary Dx); Anemia of chronic renal failure, unspecified CKD stage; Hypoalbuminemia; Secondary hyperparathyroidism ([facility]) Social History Tobacco Use Types Packs/Day Years [...] - Temperature - - Respiratory Rate 16 03/15/20240 EDT Oxygen Saturation - - Inhaled Oxygen Concentration - - Weight 90.1 kg (198 lb 10.2 oz) 03/15/2024 1718 EDT Height - - Body Mass Index 28.5 12/20/2023 2202 EST documented in this encounter [...] Flowsheet Note - Lewis Barnes RN - 03/15/20242123 EDT 03/15/242039 Post-Hemodialysis Assessment Total Blood Processed (L) 65.79 Liters On Line Clearance: spKt/V 1.19 spKt/V Dialyzer Clearance Lightly streaked Treatment UFR (ml:kg:hr) 14.93 ml:kg:hr Final Critline Profile (%/hr) -3.19 Final Profile Profile B Critline refill Not done Fluid Removed (L) 3.86 L Post-Dialysis Scale Weight 107.2 kg (236 lb 5.3 oz) Wheelchair Weight 20.9 kg (46 lb 1.2 oz) Prosthesis Weight 0 kg (0 lb) Post-Treatment Weight (kg) 86.3 Treatment Weight Change (kg) 3.8 kg Day Target Weight (kg) 86.6 Post Sitting/Lying BP 182/86 Post Sitting/Lying pulse 74 Post Standing BP (wheelchair transfer) Post Standing Pulse (wheelchair transfer) Temp 36.9 ??C (98.4 ??F) Temp src Temporal Resp 16 Post access assessment Bruit present: Yes Thrill Present AVF/AFG Hemostasis achieved Yes Note pt held for 10 minutes with blue clamps Orientation Alert and Oriented x3 Yes Time Yes Place Yes Person Yes Cooperative Yes Disoriented No Discharge Ambulation Methods Departs via w/c Wrap up items Report called to floor NA Patient Response to Treatment 3 hour treatment per COVID protocol. Tolerated well. documented in this encounter Plan of Treatment Upcoming Encounters Date Type Department Care Team (Late st Contact Info) Description 12/06/2024 6:45 EST Treatment [facility] [address] [place], [place] [phone] Carlota Jin MD [address] [place] [phone] 12/08/2024 6:45 EST Treatment [facility] [address] [place], [place] [id number] Carlota Jin MD [address] [place] [phone] 12/11/2024 6:45 EST Treatment [facility] [address] [place], [place] [id number] Carlota Jin MD [address] [place] [address] 2 [place] [phone] 12/13/2024 6:[address] [facility] [place] [address] [place], [place] [id number] Carlota Jin MD 1 [facility], [facility] 2 [place] [phone] 12/15/2024 6:[address] [facility] [place] [address] [place], [place] [id number] Carlota Jin MD 1 [facility], [facility] 2 [place] [phone] 12/18/2024 6:[address] [facility] [place] [address] [place], [place] [id number] Carlota Jin MD 1 [facility], [facility] 2 [place] [phone] 12/20/2024 6:[address] [facility] [place] [address] [place], [place] [id number] Carlota Jin MD 1 [facility], [facility] 2 [place] [phone] 12/22/2024 6:[address] [facility] [place] [address] [place], [place] [id number] Carlota Jin MD 1 [facility], [facility] 2 [place] [phone] 12/25/2024 6:[address] [facility] [place] [address] [place], [place] [id number] Carlota Jin MD 1 [facility], [facility] 2 [place] [phone] 12/27/2024 6:[address] [facility] [place] [address] [place], [place] [id number] Carlota Jin MD 1 [facility], [facility] 2 [place] [phone] 12/29/2024 6:[address] [facility] [place] [address] [place], [place] [id number] Carlota Jin MD 1 [facility], [facility] 2 [place] [phone] 01/01/2025 6:[address] [facility] [place] [address] [place], [place] [id number] Carlota Jin MD 1 [facility], [address] [phone] 01/03/2025 6:[address] [facility] [address] [place] [address] Carlota Jin MD 1 [facility], [facility] 2 [place] [phone] 01/05/2025 6:[address] [facility] [address] [place], [place] [id number] Carlota Jin MD 1 [facility], [facility] 2 [place] [phone] 01/08/2025 6:[address] [facility] [place] [address] [place], [place] [id number] Carlota Jin MD 1 [facility], [address] [phone] 01/10/2025 6:[address] [facility] [place] [address] [place], [place] [id number] Carlota Jin MD 1 [facility], [address] [phone] 01/12/2025 6:[address] [facility] [place] [address] [place], [place] [id number] Carlota Jin MD 1 [facility], [address] [phone] 01/15/2025 6:[address] [facility] [place] [address] [place], [place] [id number] Carlota Jin MD 1 [facility], [address] [phone] 01/17/2025 6:[address] [facility] [place] [address] [place], [place] [id number] Carlota Jin MD [address] [place] [address], [address] [phone] 01/19/2025 6:[address] [facility] [place] [address] [place], [place] [id number] Carlota Jin MD 1 [facility] Level [address] [place] [phone] 01/22/2025 6:[address] [facility] [place] [address] [place], [place] [address] Carlota Jin MD 1 [facility], [facility] 2 [place] [phone] 01/24/2025 6:[address] [facility] [place] [address] [place], [place] [id number] Carlota Jin MD 1 [facility], [facility] 2 [place] [phone] 01/26/2025 6:[address] [facility] [place] [address] [place], [place] [id number] Carlota Jin MD 1 [facility], [facility] 2 [place] [phone] 01/29/2025 6:[address] [facility] [address] [place], [place] [id number] Carlota Jin MD 1 [facility], [facility] 2 [place] [phone] 01/31/2025 6:[address] [facility] [address] [place], [place] [id number] Carlota Jin MD 1 [facility], [facility] 2 [place] [phone] 02/02/2025 6:[address] [facility] [place] [address] [place], [place] [id number] Carlota Jin MD 1 [facility], [facility] 2 [place] [phone] 02/05/2025 6:[address] [facility] [place] [address] [place], [place] [id number] Carlota Jin MD 1 [facility], [facility] 2 [place] [phone] 02/07/2025 6:[address] [facility] [place] [address] [place], [place] [id number] Carlota Jin MD [address] [place] [address], [facility] 2 [place] [phone] 02/09/2025 6:[address] [facility] [place] [address] [place], [place] [id number] Carlota Jin MD 1 [facility], [facility] 2 [place] [phone] 02/12/2025 6:[address] [facility] [place] [address] [place], [place] [id number] Carlota Jin MD 1 [facility], [facility] 2 [place] [phone] 02/14/2025 6:[address] [facility] [place] [address] [place], [place] [id number] Carlota Jin MD 1 [facility], [facility] 2 [place] [phone] 02/16/2025 6:[address] [facility] [place] [address] [place], [place] [id number] Carlota Jin MD 1 [facility], [facility] 2 [place] [phone] 02/19/2025 6:[address] [facility] [place] [address] [place], [place] [id number] Carlota Jin MD 1 [facility], [address] [phone] 02/21/2025 6:[address] [facility] [place] [address] [place], [place] [id number] Carlota Jin MD 1 [facility], [address] [phone] documented as of this encounter Procedures Procedure Name Priority Date/Time Associated Diagnosis Comments COMPLETE BLOOD COUNT Routine 03/15/2024 17:48 EDT ESRD (end stage renal disease) ([facility]) HEMODIALYSIS Routine 03/15/2024 17:18 EDT ESRD (end stage renal disease) ([facility]) documented in this encounter Results * (ABNORMAL) COMPLETE BLOOD COUNT (03/15/2024 17:48 EDT) WBC 8.86 4.00 - 10.40 K/cmm 03/16/2024 21:40 EDT [facility] RBC 2.51(L) 4.36 - 5.78 M/cmm 03/16/2024 21:40 [facility] Hemoglobin 7.3(L) 13.8 - 17.3 g/dL 03/16/2024 21:40 [facility] HCT 22.6(L) 39.5 - 50.2 % 03/16/2024 21:40 [facility] MCV 90 81 - 95 fL 03/16/2024 21:40 [facility] MCH 29.1 27.6 - 33.0 pg 03/16/2024 21:40 [facility] MCHC 32.3(L) 32.8 - 36.4 g/dL 03/16/2024 21:40 [facility] RDW-CV 17.1(H) <14.2 % 03/16/2024 21:40 [facility] RDW-SD 56.5(H) <46.0 fl 03/16/2024 21:40 [facility] PLT 354 141 - 377 K/cmm 03/16/2024 21:40 [facility] MPV 11.5 9.5 - 12.7 fL 03/16/2024 21:40 [facility] Blood VENOUS BLOOD / Unknown Venipuncture / Unknown 03/15/2024 17:48 EDT 03/15/2024 17:48 EDT Skye Gomez NP HEMATOLOGY & PF4 ORDERABLES Final Result [facility] [address] [place], [place] [phone] documented in this encounter Visit Diagnoses Diagnosis ESRD (end stage renal disease) ([facility])- Primary End stage renal disease Anemia of chronic renal failure, unspecified CKD stage Hypoalbuminemia Other disorders of plasma protein metabolism Secondary hyperparathyroidism ([facility]) Secondary hyperparathyroidism (of renal origin) documented in this encounter Administered Medications Inactive Administered Medications - up to 3 most recent administrations Medication Order MAR Action Action Date Dose Rate Site calcium carbonate (TUMS) tablet 500 mg (200 mg elemental calcium) 2 Tablet 2 Tablet, oral, ONCE IN DIALYSIS, 1 dose, On Wed03/15/24 at 1745, Routine, DialysisIndications:ESRD (end stage renal disease) ([facility]),Secondary hyperparathyroidism ([facility]) Given 03/15/2024 19:15 EDT 2 Tablets epoetin ken (EPOGEN) 20,000 unit/2 mL injection 6,500 Units 6,500 Units, intravenous, ONCE IN DIALYSIS, 1 dose, On Wed03/15/24 at 1745, Routine, DialysisIndications:ESRD (end stage renal disease) ([facility]),Anemia of chronic renal failure, unspecified CKD stage Given 03/15/2024 19:15 EDT 6,500 Units heparin injection 7,000 Units 7,000 Units, intravenous, ONCE IN DIALYSIS, 1 dose, On Wed03/15/24 at 1745, Routine, Dialysis, Now x1 bolus 3400 units to be given at the beginning of dialysis 900 units/hour to be given over the course of dialysis (7000 units total). Stop 1 hour prior to end of treatment. To be administered per Policy [id number].Indications:ESRD (end stage renal disease) ([facility]) Given 03/15/2024 19:15 EDT 7,000 Units LiquaCel liquid protein liquid 30 mL 30 mL, oral, ONCE IN DIALYSIS, 1 dose, On Wed03/15/24 at 1745, Patient's flavor preference: either, RoutineIndications:ESRD (end stage renal disease) ([facility]),Hypoalbuminemia Given 03/15/2024 19:15 EDT 30 mL documented in this encounter Orders Dialysis Count Last Ordered Date First Orde red Date HEMODIALYSIS 1 03/15/2024 documented in this encounter Additional Health Concerns Infection Onset Date Last Indicated Resolved Time COVID-19 Comment:Collected @ [facility]. 03/12/2024 03/13/2024 04/01/2024 22: 15 EDT documented as of this encounter Care Teams Application Integrator Relationship Specialty Start Date End Date Ken Greer MD [address] [place] [address] PCP - General 07/07/23 documented as of this encounter
--- OUTSIDE RECORDS SUMMARY | 2024-12-05 12:06 | XMS_ITS | Encounter Summary ---
Author Organization [facility] Address [address] [place] [address] Care Team Providers Care Specialty Sales Consultant Name Role Phone Ken Greer MD Primary Care Provider [phone] Reason for Visit * Episode Based Medications (Routine) - New Request Specialty Diagnoses / Procedures Referred By Nader pena Referred To Contact Diagnoses ESRD (end stage renal disease) ([facility]) Carlota Jin MD [address] [place] [phone] Phone: tel: fax: [facility] [place] [address] [place] [address] Phone: tel: fax: Referral ID Status Reason Start Date Expiration Date V isits Requested Visits Authorized [id number] New Request 03/17/2024 1 1 Encounter Details Date Type Department Care Team (Latest Contact Info) Description 03/24/2024 6:45 EDT Treatment [facility] [address] [place], [place] [phone] Carlota Jin MD [address] [place] [phone] ESRD (end stage renal disease) ([facility]) (Primary Dx); Anemia of chronic renal failure, unspecified CKD stage; Hypoalbuminemia; Secondary hyperparathyroidism ([facility]) Social History [...] - Temperature - - Respiratory Rate 16 03/24/2024 1723 EDT Oxygen Saturation - - Inhaled Oxygen Concentration - - Weight 84.7 kg (186 lb 11.7 oz) 03/24/2024 1718 EDT Height - - Body Mass Index 26.79 12/20/2023 2202 EST documented in this encounter [...] Flowsheet Note - Melissa Crespo RN - 03/24/20246 EDT 03/24/242112 Post-Hemodialysis Assessment Total Blood Processed (L) 68.42 Liters On Line Clearance: spKt/V 1.15 spKt/V Dialyzer Clearance Lightly streaked Treatment UFR (ml:kg:hr) -4.52 ml:kg:hr Final Critline Profile (%/hr) 1.2 Final Profile Profile A Fluid Removed (L) 3 L Post-Dialysis Scale Weight 102.9 kg (226 lb 13.7 oz) Wheelchair Weight 20.8 kg (45 lb 13.7 oz) Prosthesis Weight 0 kg (0 lb) Post-Treatment Weight (kg) 82.1 Treatment Weight Change (kg) 2.6 kg Day Target Weight (kg) 81.2 Post Sitting/Lying BP 178/82 Post Sitting/Lying pulse 71 Temp 36.7 ??C (98.1 ??F) Temp src Temporal Post access assessment AVF/AFG Hemostasis achieved Yes Orientation Alert and Oriented x3 Yes Time Yes Place Yes Person Yes Cooperative Yes Disoriented No Discharge Ambulation Methods Departs via w/c Wrap up items Patient Response to Treatment Tolerated tx. Removed 3000 UF goal. Stable upon DC from unit. Comments No issues during tx, No concerns voiced post tx. documented in this encounter Plan of Treatment Upcoming Encounters Date Type Department Care Team (Late st Contact Info) Description 12/06/2024 6:45 EST Treatment [facility] [address] [place], [place] [phone] Carlota Jin MD [address] [phone] 12/08/2024 6:45 EST Treatment [facility] [address] [place] [id number] Carlota Jin MD 1 [facility], [facility] [address] [place] [phone] 12/11/2024 6:45 EST Treatment [facility] [place] [address] [place], [place] [phone] Carlota Jin MD 1 [facility] 2 [place] [phone] 12/13/2024 6:45 EST Treatment [facility] [address] [place], [place] [phone] Carlota Jin MD 1 [facility], [facility] 2 [place] [phone] 12/15/2024 6:45 EST Treatment [facility] [address] [place], [place] [id number] Carlota Jin MD 1 [facility], [facility] 2 [place] [phone] 12/18/2024 6:45 EST [facility] [address] [place] [address] Carlota Jin MD 1 [facility], [facility] 2 [place] [phone] 12/20/2024 6:45 EST Treatment [facility] [address] [place], [place] [phone] Carlota Jin MD 1 [facility], [facility] [address] [place] [phone] 12/22/2024 6:45 EST Treatment [facility] [place] [address] [place], [place] [address] Carlota Jin MD 1 [facility], [facility] 2 [place] [phone] 12/25/2024 6:45 EST Treatment [facility] [place] [address] [place], [place] [phone] Carlota Jin MD 1 [facility], [facility] 2 [place] [phone] 12/27/2024 6:45 EST Treatment [facility] [place] [address] [place], [place] [phone] Carlota Jin MD 1 [facility], [facility] [address] [place] [phone] 12/29/2024 6:45 EST Treatment [facility] [place] [address] [place], [place] [phone] Carlota Jin MD 1 [facility], [facility] 2 [place] [phone] 01/01/2025 6:45 EDT Treatment [facility] [place] [address] [place], [place] [address] Carlota Jin MD 1 [facility], [facility] 2 [place] [phone] 01/03/2025 6:45 EDT Treatment [facility] [place] [address] [place], [place] [phone] Carlota Jin MD 1 [facility], [facility] 2 [place] [phone] 01/05/2025 6:45 EDT Treatment [facility] [place] [address] [place], [place] [address] Carlota Jin MD 1 [facility], [facility] 2 [place] [phone] 01/08/2025 6:45 EDT Treatment [facility] [place] [address] [place], [place] [phone] Carlota Jin MD 1 [facility], [facility] 2 [place] [phone] 01/10/2025 6:45 EDT Treatment [facility] [place] [address] [place], [place] [phone] Carlota Jin MD 1 [facility], [facility] 2 [place] [phone] 01/12/2025 6:45 EDT Treatment [facility] [place] [address] [place] [address] Carlota Jin MD 1 [facility], [facility] 2 [place] [phone] 01/15/2025 6:45 EDT Treatment [facility] [place] [address] [place], [place] [address] Carlota Jin MD 1 [facility], [facility] 2 [place] [phone] 01/17/2025 6:45 EDT Treatment [facility] [place] [address] [place], [place] [phone] Carlota Jin MD 1 [facility], [facility] 2 [place] [phone] 01/19/2025 6:45 EDT Treatment [facility] [place] [address] [place], [place] [phone] Carlota Jin MD [address] [place] [address], [facility] 2 [place] [phone] 01/22/2025 6:45 EDT Treatment [facility] [place] [address] [place], [place] [phone] Carlota Jin MD [address] [place] [address], [address] [phone] 01/24/2025 6:45 EDT Treatment [facility] [place] [address] [place], [place] [phone] Carlota Jin MD [address] [place] [address], [facility] 2 [place] [phone] 01/26/2025 6:45 EDT Treatment [facility] [place] [address] [place], [place] [phone] Carlota Jin MD 1 [facility], [facility] 2 [place] [phone] 01/29/2025 6:45 EDT Treatment [facility] [place] [address] [place], [place] [phone] Carlota Jin MD 1 [facility], [facility] 2 [place] [phone] 01/31/2025 6:45 EDT Treatment [facility] [place] [address] [place], [place] [phone] Carlota Jin MD 1 [facility], [facility] 2 [place] [phone] 02/02/2025 6:45 EDT Treatment [facility] [place] [address] [place], [place] [phone] Carlota Jin MD 1 [facility], [facility] 2 [place] [phone] 02/05/2025 6:45 EDT Treatment [facility] [place] [address] [place] [address] Carlota Jin MD 1 [facility], [facility] 2 [place] [phone] 02/07/2025 6:45 EDT Treatment [facility] [place] [address] [place] [address] Carlota Jin MD 1 [facility], [facility] 2 [place] [phone] 02/09/2025 6:45 EDT Treatment [facility] [place] [address] [place], [place] [phone] Carlota Jin MD 1 [facility], [facility] 2 [place] [phone] 02/12/2025 6:45 EDT Treatment [facility] [address] [place], [place] [phone] Carlota Jin MD 1 [facility], [address] [phone] 02/14/2025 6:45 EDT Treatment [facility] [address] [place], [place] [phone] Carlota Jin MD 1 [facility], [address] [phone] 02/16/2025 6:45 EDT Treatment [facility] [address] [place], [place] [phone] Carlota Jin MD 1 [facility], [address] [phone] 02/19/2025 6:45 EDT Treatment [facility] [address] [place], [place] [phone] Carlota Jin MD 1 [facility], [address] [phone] 02/21/2025 6:45 EDT Treatment [facility] [address] [place], [place] [phone] Carlota Jin MD 1 [facility], [address] [phone] documented as of this encounter Procedures Procedure Name Priority Date/Time Associated Diagnosis Comments HEMODIALYSIS Routine 03/24/2024 17:23 EDT ESRD (end stage renal disease) ([facility]) documented in this encounter Visit Diagnoses Diagnosis ESRD (end stage renal disease) ([facility])- Primary End stage renal disease Anemia of chronic renal failure, unspecified CKD stage Hypoalbuminemia Other disorders of plasma protein metabolism Secondary hyperparathyroidism ([facility]) Secondary hyperparathyroidism (of renal origin) documented in this encounter Administered Medications Inactive Administered Medications - up to 3 most recent administrations Medication Order MAR Action Action Date Dose Rate Site calcium carbonate (TUMS) tablet 500 mg (200 mg elemental calcium) 2 Tablet 2 Tablet, oral, ONCE IN DIALYSIS, 1 dose, On Wed03/24/24 at 1745, Routine, DialysisIndications:ESRD (end stage renal disease) ([facility]),Secondary hyperparathyroidism ([facility]) Given 03/24/2024 19:41 EDT 2 Tablets epoetin ken (EPOGEN) 20,000 unit/2 mL injection 8,000 Units 8,000 Units, intravenous, ONCE IN DIALYSIS, 1 dose, On Wed03/24/24 at 1745, Routine, DialysisIndications:ESRD (end stage renal disease) ([facility]),Anemia of chronic renal failure, unspecified CKD stage Given 03/24/2024 19:41 EDT 8,000 Units heparin injection 7,000 Units 7,000 Units, intravenous, ONCE IN DIALYSIS, 1 dose, On Wed03/24/24 at 1745, Routine, Dialysis, Now x1 bolus 3400 units to be given at the beginning of dialysis 900 units/hour to be given over the course of dialysis (7000 units total). Stop 1 hour prior to end of treatment. To be administered per Policy [id number].Indications:ESRD (end stage renal disease) ([facility]) Given 03/24/2024 17:38 EDT 7,000 Units LiquaCel liquid protein liquid 30 mL 30 mL, oral, ONCE IN DIALYSIS, 1 dose, On Wed03/24/24 at 1745, Patient's flavor preference: either, RoutineIndications:ESRD (end stage renal disease) ([facility]),Hypoalbuminemia Given 03/24/2024 19:41 EDT 30 mL documented in this encounter Orders Dialysis Count Last Ordered Date First Orde red Date HEMODIALYSIS 1 03/24/2024 documented in this encounter Additional Health Concerns Infection Onset Date Last Indicated Resolved Time COVID-19 Comment:Collected @ [facility]. 03/12/2024 03/13/2024 04/01/2024 22: 15 EDT documented as of this encounter Care Teams Specialty Sales Consultant Relationship Specialty Start Date End Date Ken Greer MD [address] [place] [address] PCP - General 07/07/23 documented as of this encounter
--- OUTSIDE RECORDS SUMMARY | 2024-12-05 12:06 | XMS_ITS | Encounter Summary ---
Author Organization [facility] Address [address] [place] [address] Care Team Providers Care Pearl Digger Name Role Phone Ken Greer MD Primary Care Provider [phone] Reason for Referral * (Routine/Next Available) - Receiving Office to Obtain Authorization Specialty Diagnoses / Procedures Referred By Conteben gardiner Referred To Contact Procedures CT OUTSIDE IMAGES CHEST Unknown, MD Aure Referral ID Status Reason Start Date Expiration Date Visits Requested Visits Authorized [id number] Receiving Office to Obtain Authorization 03/12/2024 1 1 Reason for Visit * (Routine/Next Available) - Receiving Office to Obtain Authorization Specialty Diagnoses / Procedures Referred By Conteben t Referred To Contact Procedures CT OUTSIDE IMAGES CHEST Unknown, MD Aure Referral ID Status Reason Start Date Expiration Date Visits Requested Visits Authorized [id number] Receiving Office to Obtain Authorization 03/12/2024 1 1 Encounter Details Date Type Department Care Team (Latest Contact Info) Description 03/12/2024 17:34 EDT - 03/12/2024 23:59 EDT Hospital Encounter [facility] Secondary Reads [place] Discharge Disposition: [...] by mouth every 6 hours. 0 12/24/2023 amLODIPine (NORVASC) 10 mg tablet Take 1 Tablet by mouth daily. 12/27/2023 aspirin chewable 81 mg tablet Take 1 [...] Capsule by mouth daily. 30 Capsule 12/24/2023 insulin glargine 100 unit/mL (3 mL) injection pen Inject 10 Units into the skin 2 times daily. 10 u after dialysis around 11am and 10 u at bedtime, around 10 pm insulin pen needles 32G x 5/32 Brand: BD Ultra Fine Anny. ISS TID and levemir once daily 100 Each 11 12/24/2023 pantoprazole (PROTONIX) 40 mg tablet Take 1 Tablet by mouth daily. pregabalin (LYRICA) 100 mg capsule Take 1 Capsule by mouth 2 times daily. 1 tab in the morning, 2 tabs at night tiZANidine (ZANAFLEX) 4 mg tablet Take 1 Tablet by mouth every 8 hours as needed. heparin 5,000 unit/mL injection Inject 1 mL into the skin every 8 hours. For 26 days 03/22/20 24 insulin lispro (HUMALOG) 100 unit/mL vial Inject into the skin 3 times daily before meals. 0-8 units subcutaneous q4hrs 10/26/19 25 multivitamin (NEPHROVITE) 0.8 mg tablet Take 1 Tablet by mouth at bedtime. 06/19/20 24 oxyCODONE (ROXICODONE) 5 mg immediate release tablet Take 1 Tablet by mouth every 6 hours as needed for Pain. 01/14/2024 06/19/20 24 pregabalin (LYRICA) 75 mg capsule Take 1 Capsule by mouth at bedtime. Daily Max: 75 mg 04/03/20 24 sevelamer hydrochloride (RENAGEL) 800 mg tablet Take 2 Tablets by mouth 3 times daily with meals. 05/01/20 24 documented as of this encounter Discharge Disposition Disposition Code Departure Means Destination Home or Self Care documented in this encounter Plan of Treatment Upcoming Encounters Date Type Department Care Team (Late st Contact Info) Description 12/06/2024 6:45 EST Treatment [facility] [address] [place] [address] Carlota Jin MD 1 [facility] [address] [place] [phone] 12/08/2024 6:45 EST Treatment [facility] [address] [place], [place] [address] Carlota Jin MD 1 [facility], [facility] [address] [place] [phone] 12/11/2024 6:45 EST Treatment [facility] [place] [address] [place] [address] Carlota Jin MD 1 [facility], [facility] [address] [place] [phone] 12/13/2024 6:45 EST Treatment [facility] [place] [address] [place], [place] [phone] Carlota Jin MD 1 [facility], [address] [phone] 12/15/2024 6:45 EST Treatment [facility] [place] [address] [place], [place] [phone] Carlota Jin MD 1 [facility], [address] [phone] 12/18/2024 6:45 EST Treatment [facility] [place] [address] [place], [place] [id number] Carlota Jin MD 1 [facility], [address] [phone] 12/20/2024 6:45 EST Treatment [facility] [place] [address] [place], [place] [phone] Carolta Jin MD 1 [facility], [facility] [address] [place] [phone] 12/22/2024 6:45 EST Treatment [facility] [place] [address] [place], [place] [phone] Carlota Jin MD 1 [facility], [facility] 2 [place] [phone] 12/25/2024 6:45 EST Treatment [facility] [place] [address] [place], [place] [id number] Carlota Jin MD 1 [facility], [facility] 2 [place] [phone] 12/27/2024 6:45 EST Treatment [facility] [place] [address] [place] [address] Carloat Jin MD 1 [facility] 2 [place] [phone] 12/29/2024 6:45 EST Treatment [facility] [place] [address] [place] [address] Carlota Jin MD 1 [facility] [address] [place] [phone] 01/01/2025 6:45 EDT Treatment [facility] [place] [address] [place], [place] [id number] Carlota Jin MD 1 [facility] [address] [place] [phone] 01/03/2025 6:45 EDT Treatment [facility] [place] [address] [place], [place] [address] Carlota Jin MD 1 [facility] [address] [place] [phone] 01/05/2025 6:45 EDT Treatment [facility] [place] [address] [place], [place] [phone] Carlota Jin MD 1 [facility], [address] [phone] 01/08/2025 6:45 EDT Treatment [facility] [place] [address] [place], [place] [id number] Carlota Jin MD 1 [facility], [address] [phone] 01/10/2025 6:45 EDT Treatment [facility] [place] [address] [place], [place] [phone] Carlota Jin MD [address] [phone] 01/12/2025 6:45 EDT Treatment [facility] [place] [address] [place], [place] [phone] Carlota Jin MD [address] [phone] 01/15/2025 6:45 EDT Treatment [facility] [place] [address] [place], [place] [phone] Carlota Jin MD 1 [facility] [address] [place] [phone] 01/17/2025 6:45 EDT Treatment [facility] [place] [address] [place], [place] [id number] Carlota Jin MD 1 [facility], [facility] [address] [place] [phone] 01/19/2025 6:45 EDT Treatment [facility] [place] [address] [place], [place] [id number] Carlota Jin MD 1 [facility] [address] [place] [phone] 01/22/2025 6:45 EDT Treatment [facility] [place] [address] [place], [place] [id number] Carlota Jin MD 1 [facility] [address] [place] [phone] 01/24/2025 6:45 EDT Treatment [facility] [place] [address] [place] [address] Carlota Jin MD 1 [facility] 2 [place] [phone] 01/26/2025 6:45 EDT Treatment [facility] [place] [address] [place], [place] [id number] Carlota Jin MD 1 [facility] [address] [place] [phone] 01/29/2025 6:45 EDT Treatment [facility] [place] [address] [place], [place] [phone] Carlota Jin MD 1 [facility], [address] [phone] 01/31/2025 6:45 EDT Treatment [facility] [place] [address] [place], [place] [id number] Carlota Jin MD 1 [facility], [address] [phone] 02/02/2025 6:45 EDT Treatment [facility] [place] [address] [place], [place] [id number] Carlota Jin MD 1 [facility], [address] [phone] 02/05/2025 6:45 EDT Treatment [facility] [place] [address] [place], [place] [phone] Carlota Jin MD 1 [facility], [address] [phone] 02/07/2025 6:45 EDT Treatment [facility] [place] [address] [place], [place] [phone] Carlota Jin MD [address] [place] [address], [address] [phone] 02/09/2025 6:45 EDT Treatment [facility] [place] [address] [place], [place] [id number] Carlota Jin MD 1 [facility] [address] [place] [phone] 02/12/2025 6:45 EDT Treatment [facility] [place] [address] [place], [place] [address] Carlota Jin MD 1 [facility], [facility] [address] [place] [phone] 02/14/2025 6:45 EDT Treatment [facility] [place] [address] [place], [place] [id number] Carlota Jin MD 1 [facility] 2 [place] [phone] 02/16/2025 6:45 EDT Treatment [facility] [place] [address] [place], [place] [address] Carlota Jin MD 1 [facility], [facility] [address] [place] [phone] 02/19/2025 6:45 EDT [facility] [address] [place], [place] [id number] Carlota Jin MD 1 [facility], [facility] [address] [place] [phone] 02/21/2025 6:45 EDT Treatment [facility] [address] [place], [place] [address] Carlota Jin MD 1 [facility], [facility] [address] [place] [phone] documented as of this encounter Procedures Procedure Name Priority Date/Time Associated Diagnosis Comments CT OUTSIDE IMAGES CHEST Routine 03/12/2024 17:34 EDT documented in this encounter Results * CT OUTSIDE IMAGES CHEST (03/12/2024 17:34 EDT) Narrative 03/12/2024 17:34 EDT This is a non-reportable exam. us Provider Unknown MD JOSEPH OTHER IMAGING ORDERABLES Final Result documented in this encounter Visit Diagnoses Not on filedocumented in this encounter Care Teams Pearl Digger Relationship Specialty Start Date End Date Ken Greer MD [address] [place] [address] PCP - General 07/07/23 documented as of this encounter
--- OUTSIDE RECORDS SUMMARY | 2024-12-05 12:06 | XMS_ITS | Encounter Summary ---
Author Organization [facility] Address [address] [place] [address] Care Team Providers Care Pole Inspector Name Role Phone Ken Greer MD Primary Care Provider [phone] Encounter Details Date Type Department Care Team (Late st Contact Info) Description 03/22/2024 Documentation Visit [address] [place] [address] Shelley Eden, RD [address] [place] [address] Social History Tobacco Use Types Packs/Day Years [...] documented in this encounter Progress Notes * Noemi Edenace, RD - 03/22/2024 1447 EDT Dialysis Dietitian's Monthly Assessment Met with patient on 03/22/24 phone call with pt Family/caregivers or others present: lives with his Information obtained from: patient Recent Hospitalizations: 03/13-03/14/24 COVID , 02/18/24-02/25/24 BKA, 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 He said he is doing very well since his sx. He is feeling much better . Has home health and PT - said he is transferring well from bed and car using slide board but he is anxious to get healed up and get prosthetic . We discussed importance of increased protein intake for wound healing. Also discussed high k level - noted to have had some OJ during his admit at the hospital. Appetite: Good Appetite scale (0-10): No number given Gastrointestinal: No issues reported Skin integrity: Burn wound on leg and foot infection Diabetes: Yes does not check on bld sugars Diabetes Management: Self Monitoring of Blood Glucose on insulin but does not check Diet Recall: B Indonesian toast L skipped D meatball sub coffee Fluid: Water, Coffee, Milk, Juice Alcohol: will need to f/u Prescribed Weight:84 Post-Dialytic Weight: 85.1 03/08/2024 10:44 03/10/2024 10:39 03/15/2024 20:40 03/17/2024 20:27 03/20/2024 21:40 - ( Kg ) 83.1 83.7 86.3 85.6 85.1 UFR: 03/08/2024 10:44 03/10/2024 10:39 03/15/2024 20:40 03/17/2024 20:27 03/20/2024 21:40 - mL/Kg/hr 8.95 ml:kg:hr 8.29 ml:kg:hr 14.93 ml:kg:hr 16.29 ml:kg:hr 13.43 ml:kg:hr URR: 69.048 (Calculated from:; BUN Pre-Dialysis: 42 mg/dL at 03/03/2024 14:30; BUN Post-Dialysis: 13mg/dL at 03/03/2024 14:30) Kt/V: 1.35 (Calculated from:; BUN Pre-Dialysis: 42 mg/dL at 03/03/2024 14:30; BUN Post-Dialysis: 13 mg/dL at 03/03/2024 14:30; Pre-Treatment Weight (kg): 84.8 at 03/03/2024 6:42; Post-Treatment Weight (kg): 83 at 03/03/2024 10:55; Duration of Treatment (minutes): 240 minutes at 03/03/2024 10:55) PCR: 0.78 (Calculated from:; BUN Pre-Dialysis: 42 mg/dL at 03/03/2024 14:30; BUN Post-Dialysis: 13 mg/dL at 03/03/2024 14:30; Pre-Treatment Weight (kg): 84.8 at 03/03/2024 6:42; Post-Treatment Weight (kg): 83 at 03/03/2024 10:55; Duration of Treatment (minutes): 240 minutes at 03/03/2024 10:55; Age: 58 years) Pertinent Labs include: Lab Results Component Value Date LABALBU 2.6 (L) 02/28/2024 LABALBU 2.7 (L) 01/24/2024 Lab Results Component Value Date BUNPRE 42 (H) 03/03/2024 BUNPRE 42 (H) 03/03/2024 NA 134 (L) 02/28/2024 NA 136 01/24/2024 K 6.7 (H) 02/28/2024 K 5.3 (H) 01/24/2024 CL 98 02/28/2024 CL 98 01/24/2024 CO2 25 02/28/2024 CO2 24 01/24/2024 MG 2.1 02/28/2024 MG 2.3 01/24/2024 CALCIUM 8.7 02/28/2024 CALCIUM 8.8 01/24/2024 CALCCA 9.8 02/28/2024 CALCCA 9.8 01/24/2024 PHOS 6.2 (H) 02/28/2024 PHOS 6.9 (H) 01/24/2024 ALKPHOS 148 (H) 02/28/2024 ALKPHOS 107 01/24/2024 PTH 329 (H) 01/24/2024 PTH 707 (H) 10/27/2023 PLT 354 03/15/2024 PLT 477 (H) 03/08/2024 MCV 90 03/15/2024 MCV 92 03/08/2024 [id number] 607 10/27/2023 [id number] 688 11/16/2022 VITD 21 (L) 10/27/2023 VITD [...] to Nutrition: atorvastatin - 40 mg sevelamer hydrochloride - 800 mg insulin glargine - 100 unit/mL (3 mL) insulin lispro - 100 unit/mL Assessment Nutrition status / Adequacy of intake: Xander is eating very well but a bit limited in protein for wound healing - encouraged increase intake and use of protein powder - if albumin remains low may need to consider IDPN. Will cont liquacel at HD but will see if pt is willing to change to nepro to increase protein. Wt has ranged from 85-87 kg in the past g months. At his current wt his BMI is 28 adjusted for amp Weight/Volume status: fluid gains 3.1-6.4 UFR 3-12 Electrolytes: K- high - noted to have OJ during hospital admit - revd foods to avoid Na -low indicating fluid on Mg WNL Mineral Bone Disease: Ca WNL Phos WNL - on 2 tums at HD, reinforced renvela at meals PTH WNL - no calcitriol Vitamin [...] tips - Sep 16 and Oct 16 Assessment of Understanding: needs reinforcement Medical Nutrition Therapy Plan and Recommendation Revd high phos foods to limit monthly - Encourage consistency with binders Cont liquacel at HD restart protein powder at home -reinforced high protein needs for wound healing Cont vitamin and D3 Revd high k foods to limit Shelley Eden RD, CD documented in this encounter Plan of Treatment Upcoming Encounters Date Type Department Care Team (Late st Contact Info) Description 12/06/2024 6:45 EST Treatment [facility] [address] [place] [id number] Carlota Jin MD 1 [facility], Level [address] [place] [phone] 12/08/2024 6:45 EST [facility] [address] [place] [phone] Carlota Jin MD 1 [facility], Level [address] [place] [phone] 12/11/2024 6:45 EST Treatment [facility] [address] [place], [place] [id number] Carlota Jin MD 1 [facility], [facility] 2 [place] [phone] 12/13/2024 6:45 EST Treatment [facility] [address] [place], [place] [phone] Carlota Jin MD 1 [facility], [facility] 2 [place] [phone] 12/15/2024 6:45 EST Treatment [facility] [address] [place], [place] [id number] Carlota Jin MD 1 [facility], [facility] 2 [place] [phone] 12/18/2024 6:45 EST Treatment [facility] [address] [place], [place] [id number] Carlota Jin MD 1 [facility], [facility] 2 [place] [phone] 12/20/2024 6:45 EST Treatment [facility] [address] [place], [place] [phone] Carlota Jin MD 1 [facility], [facility] 2 [place] [phone] 12/22/2024 6:45 EST Treatment [facility] [address] [place], [place] [phone] Carlota Jin MD 1 [facility], [facility] 2 [place] [phone] 12/25/2024 6:45 EST Treatment [facility] [address] [place], [place] [id number] Carlota Jin MD 1 [facility], [facility] 2 [place] [phone] 12/27/2024 6:45 EST Treatment [facility] [address] [place], [place] [phone] Carlota Jin MD 1 [facility], [facility] 2 [place] [phone] 12/29/2024 6:45 EST Treatment [facility] [address] [place], [place] [phone] Carlota Jin MD 1 [facility], [facility] 2 [place] [phone] 01/01/2025 6:45 EDT Treatment [facility] [address] [place], [place] [phone] Carlota Jin MD 1 [facility], [facility] 2 [place] [phone] 01/03/2025 6:45 EDT Treatment [facility] [address] [place], [place] [phone] Carlota Jin MD 1 [facility], [facility] 2 [place] [phone] 01/05/2025 6:45 EDT Treatment [facility] [address] [place], [place] [phone] Carlota Jin MD 1 [facility], [facility] 2 [place] [phone] 01/08/2025 6:45 EDT Treatment [facility] [address] [place], [place] [id number] Carlota Jin MD 1 [facility], [facility] 2 [place] [phone] 01/10/2025 6:45 EDT Treatment [facility] [address] [place], [place] [phone] Carlota Jin MD 1 [facility], [address] [phone] 01/12/2025 6:45 EDT Treatment [facility] [address] [place], [place] [phone] Carlota Jin MD 1 [facility], [facility] 2 [place] [phone] 01/15/2025 6:45 EDT Treatment [facility] [address] [place], [place] [phone] Carlota Jin MD 1 [facility], [facility] 2 [place] [phone] 01/17/2025 6:45 EDT Treatment [facility] [address] [place], [place] [phone] Carlota Jin MD 1 [facility], [facility] 2 [place] [phone] 01/19/2025 6:45 EDT Treatment [facility] [address] [place] [address] Carlota Jin MD 1 [facility], [facility] 2 [place] [phone] 01/22/2025 6:45 EDT Treatment [facility] [address] [place], [place] [phone] Carlota Jin MD 1 [facility], [address] [phone] 01/24/2025 6:45 EDT Treatment [facility] [address] [place], [place] [phone] Carlota Jin MD 1 [facility], [address] [phone] 01/26/2025 6:45 EDT Treatment [facility] [address] [place], [place] [phone] Carlota Jin MD 1 [facility], [address] [phone] 01/29/2025 6:45 EDT Treatment [facility] [address] [place], [place] [phone] Carlota Jin MD 1 [facility], [facility] 2 [place] [phone] 01/31/2025 6:45 EDT Treatment [facility] [address] [place], [place] [phone] Carlota iJn MD 1 [facility], [facility] 2 [place] [phone] 02/02/2025 6:45 EDT Treatment [facility] [address] [place], [place] [phone] Carlota Jin MD 1 [facility], [facility] 2 [place] [phone] 02/05/2025 6:45 EDT Treatment [facility] [address] [place], [place] [address] [phone] Cralota Jin MD 1 [facility], [facility] 2 [place] [phone] 02/07/2025 6:45 EDT Treatment [facility] [address] [place] [address] Carlota Jin MD 1 [facility], [facility] 2 [place] [phone] 02/09/2025 6:45 EDT Treatment [facility] [address] [place], [place] [phone] Carlota Jin MD 1 [facility], [facility] 2 [place] [phone] 02/12/2025 6:45 EDT Treatment [facility] [address] [place], [place] [address] Carlota Jin MD [address] [place] [phone] 02/14/2025 6:45 EDT Treatment [facility] [address] [place], [place] [phone] Carlota Jin MD [address] [place] [phone] 02/16/2025 6:45 EDT Treatment [facility] [address] [place], [place] [phone] Carlota Jin MD [address] [place] [address], [address] [phone] 02/19/2025 6:45 EDT Treatment [facility] [address] [place], [place] [phone] Carlota Jin MD [address] [phone] 02/21/2025 6:45 EDT Treatment [facility] [address] [place], [place] [phone] Carlota Jin MD [address] [place] [phone] documented as of this encounter Visit Diagnoses Not on filedocumented in this encounter Additional Health Concerns Infection Onset Date Last Indicated Resolved Time COVID-19 Comment:Collected @ [facility]. 03/12/2024 03/13/2024 04/01/2024 22: 15 EDT documented as of this encounter Care Teams Pole Inspector Relationship Specialty Start Date End Date Ken Greer MD [address] [place] [address] PCP - General 07/07/23 documented as of this encounter
--- OUTSIDE RECORDS SUMMARY | 2024-12-05 12:06 | XMS_ITS | Encounter Summary ---
Author Organization [facility] Address [address] [place] [address] Care Team Providers Care Insurance Adjustor Name Role Phone Ken Greer MD Primary Care Provider [phone] Reason for Referral * (Routine/Next Available) - Receiving Office to Obtain Authorization Specialty Diagnoses / Procedures Referred By Contac t Referred To Contact Procedures XR OUTSIDE IMAGES CHEST Unknown, MD Aure Referral ID Status Reason Start Date Expiration Date Visits Requested Visits Authorized [id number] Receiving Office to Obtain Authorization 03/12/2024 1 1 Reason for Visit * (Routine/Next Available) - Receiving Office to Obtain Authorization Specialty Diagnoses / Procedures Referred By Contac t Referred To Contact Procedures XR OUTSIDE IMAGES CHEST Unknown, MD Aure Referral ID Status Reason Start Date Expiration Date Visits Requested Visits Authorized [id number] Receiving Office to Obtain Authorization 03/12/2024 1 1 Encounter Details Date Type Department Care Team (Latest Contact Info) Description 03/12/2024 17:33 EDT Hospital Encounter [facility] Secondary Reads [place] Discharge Disposition: Home or [...] of Assessment Author No 12/20/2023 14:00 Angélica aLzo RN * Are you blind or do [...] Contact Info) Description 12/06/2024 6:45 EST Treatment [facility] [address] [place] [phone] Carlota Jin MD 1 [facility], [address] [place] [phone] 12/08/2024 6:45 EST Treatment [facility] [address] [place] [phone] Carlota Jin MD 1 [facility], [facility] 2 [place] [phone] 12/11/2024 6:45 EST Treatment [facility] [address] [place], [place] [phone] Carlota Jin MD 1 [facility], [facility] 2 [place] [phone] 12/13/2024 6:45 EST Treatment [facility] [place] [address] [place], [place] [phone] Carlota Jin MD 1 [facility], [facility] 2 [place] [phone] 12/15/2024 6:45 EST Treatment [facility] [address] [place], [place] [phone] Carlota Jin MD 1 [facility], [facility] 2 [place] [phone] 12/18/2024 6:45 EST Treatment [facility] [place] [address] [place], [place] [phone] Carlota Jin MD 1 [facility], [facility] 2 [place] [phone] 12/20/2024 6:45 EST Treatment [facility] [place] [address] [place], [place] [phone] Carlota Jin MD 1 [facility], [facility] 2 [place] [phone] 12/22/2024 6:45 EST Treatment [facility] [place] [address] [place], [place] [phone] Carlota Jin MD 1 [facility], [facility] 2 [place] [phone] 12/25/2024 6:45 EST Treatment [facility] [place] [address] [place], [place] [phone] Carlota Jin MD 1 [facility], [facility] 2 [place] [phone] 12/27/2024 6:45 EST Treatment [facility] [place] [address] [place], [place] [phone] Carlota Jin MD 1 [facility], [facility] 2 [place] [phone] 12/29/2024 6:45 EST Treatment [facility] [place] [address] [place], [place] [phone] Carlota Jin MD 1 [facility], [facility] 2 [place] [phone] 01/01/2025 6:45 EDT Treatment [facility] [place] [address] [place], [place] [phone] Carlota Jin MD 1 [facility], [facility] 2 [place] [phone] 01/03/2025 6:45 EDT Treatment [facility] [place] [address] [place], [place] [phone] Carlota Jin MD 1 [facility], [facility] 2 [place] [phone] 01/05/2025 6:45 EDT Treatment [facility] [place] [address] [place] [address] Carlota Jin MD 1 [facility], [facility] 2 [place] [phone] 01/08/2025 6:45 EDT Treatment [facility] [place] [address] [place] [address] Carlota Jin MD 1 [facility], [address] [phone] 01/10/2025 6:45 EDT Treatment [facility] [place] [address] [place] [address] Carlota Jin MD 1 [facility], [facility] 2 [place] [phone] 01/12/2025 6:45 EDT Treatment [facility] [place] [address] [place] [address] Carlota Jin MD 1 [facility], [facility] 2 [place] [phone] 01/15/2025 6:45 EDT Treatment [facility] [place] [address] [place], [place] [phone] Carlota Jin MD 1 [facility], [facility] 2 [place] [phone] 01/17/2025 6:45 EDT Treatment [facility] [place] [address] [place], [place] [address] Carlota Jin MD 1 [facility], [facility] 2 [place] [phone] 01/19/2025 6:45 EDT Treatment [facility] [place] [address] [place], [place] [phone] Carlota Jin MD 1 [facility], [facility] 2 [place] [phone] 01/22/2025 6:45 EDT Treatment [facility] [place] [address] [place], [place] [phone] Carlota Jin MD 1 [facility], [facility] 2 [place] [phone] 01/24/2025 6:45 EDT Treatment [facility] [place] [address] [place], [place] [phone] Carlota Jin MD 1 [facility], [facility] 2 [place] [phone] 01/26/2025 6:45 EDT Treatment [facility] [place] [address] [place], [place] [phone] Carlota Jin MD 1 [facility], [facility] 2 [place] [phone] 01/29/2025 6:45 EDT Treatment [facility] [place] [address] [place], [place] [address] Carlota Jin MD 1 [facility], [facility] 2 [place] [phone] 01/31/2025 6:45 EDT Treatment [facility] [place] [address] [place], [place] [phone] Cralota Jin MD 1 [facility], [address] [phone] 02/02/2025 6:45 EDT Treatment [facility] [place] [address] [place], [place] [phone] Carlota Jin MD 1 [facility], [address] [phone] 02/05/2025 6:45 EDT Treatment [facility] [place] [address] [place], [place] [phone] Carlota Jin MD [address] [phone] 02/07/2025 6:45 EDT Treatment [facility] [place] [address] [place], [place] [phone] Carlota Jin MD [address] [phone] 02/09/2025 6:45 EDT Treatment [facility] [place] [address] [place], [place] [phone] Carlota Jin MD 1 [facility], [facility] 2 [place] [phone] 02/12/2025 6:45 EDT Treatment [facility] [place] [address] [place], [place] [phone] Carlota Jin MD 1 [facility], [facility] 2 [place] [phone] 02/14/2025 6:45 EDT Treatment [facility] [place] [address] [place], [place] [phone] Carlota Jin MD 1 [facility], [address] [phone] 02/16/2025 6:45 EDT Treatment [facility] [place] [address] [place], [place] [phone] Carlota Jin MD [address] [phone] 02/19/2025 6:45 EDT Treatment [facility] [place] [address] [place] [address] Carlota Jin MD 1 [facility], [address] [phone] 02/21/2025 6:45 EDT Treatment [facility] [place] [address] [place], [place] [phone] Carlota Jin MD 1 [facility], [address] [phone] documented as of this encounter Procedures Procedure Name Priority Date/Time Associated Diagnosis Comments XR OUTSIDE IMAGES CHEST Routine 03/12/2024 17:34 EDT documented in this encounter Results * XR OUTSIDE IMAGES CHEST (03/12/2024 17:34 EDT) Narrative 03/12/2024 17:34 EDT This is a non-reportable exam. us Provider Unknown [facility] OTHER IMAGING ORDERABLES Final Result documented in this encounter Visit Diagnoses Not on filedocumented in this encounter Care Teams Insurance Adjustor Relationship Specialty Start Date End Date Ken Greer MD [address] [place] [address] PCP - General 07/07/23 documented as of this encounter
--- OUTSIDE RECORDS SUMMARY | 2024-12-05 12:06 | XMS_ITS | Encounter Summary ---
Author Organization [facility] Address [address] [place] [address] Care Team Providers Care Brick Cleaner Name Role Phone Ken Greer MD Primary Care Provider [phone] Reason for Visit * Episode Based Medications (Routine) - New Request Specialty Diagnoses / Procedures Referred By Nader pena Referred To Contact Diagnoses ESRD (end stage renal disease) ([facility]) Carlota Jin MD [address] [place] [phone] Phone: tel: fax: [facility] [address] [place] [address] Phone: tel: fax: Referral ID Status Reason Start Date Expiration Date V isits Requested Visits Authorized [id number] New Request 03/17/2024 1 1 Encounter Details Date Type Department Care Team (Latest Contact Info) Description 03/22/2024 6:45 EDT Treatment [facility] [address] [place], [place] [phone] Carlota Jin MD [address] [place] [phone] ESRD (end stage renal disease) ([facility]) (Primary Dx); Anemia of chronic renal failure, unspecified CKD stage; Hypoalbuminemia; Secondary hyperparathyroidism ([facility]) Social History Tobacco [...] - - Temperature - - Respiratory Rate 20 03/22/2024 1718 EDT Oxygen Saturation - - Inhaled Oxygen Concentration - - Weight 88 kg (194 lb 0.1 oz) 03/22/2024 1718 EDT Height - - Body Mass Index 27.84 12/20/2023 2202 EST documented in this encounter [...] encounter Miscellaneous Notes * Flowsheet Note - Megan Young RN - 03/22/20242118 EDT 03/22/242030 Post-Hemodialysis Assessment Total Blood Processed (L) 67.27 Liters On Line Clearance: spKt/V 1.22 spKt/V Dialyzer Clearance Lightly streaked Treatment UFR (ml:kg:hr) 15.37 ml:kg:hr Critline refill Not done Fluid Removed (L) 4 L Post-Dialysis Scale Weight 105 kg (231 lb 7.7 oz) Wheelchair Weight 20.9 kg (46 lb 1.2 oz) Prosthesis Weight 0 kg (0 lb) Post-Treatment Weight (kg) 84.1 Treatment Weight Change (kg) 3.9 kg Day Target Weight (kg) 84.5 Post Sitting/Lying BP 173/84 Post Sitting/Lying pulse 72 Temp 36.3 ??C (97.3 ??F) Temp src Temporal Minutes Short -181 Post access assessment AVF/AFG Hemostasis achieved Yes Orientation Alert and Oriented x3 Yes Time Yes Place Yes Person Yes Cooperative Yes Disoriented No Discharge Ambulation Methods Departs via w/c Wrap up items Patient Response to Treatment Patient tolerated treatment well. Comments Patient stable on discharge. documented in this encounter Plan of Treatment Upcoming Encounters Date Type Department Care Team (Late st Contact Info) Description 12/06/2024 6:45 EST Treatment [facility] [address] [place], [place] [phone] Carlota Jin MD [address] [place] [address], [facility] [address] [place] [phone] 12/08/2024 6:45 EST Treatment [facility] [address] [place] [phone] Carlota Jin MD 1 [facility], [facility] [address] [place] [phone] 12/11/2024 6:45 EST Treatment [facility] [place] [address] [place], [place] [phone] Carlota Jin MD 1 [facility], [facility] [address] [place] [phone] 12/13/2024 6:45 EST Treatment [facility] [address] [place], [place] [id number] Carlota Jin MD 1 [facility], [facility] [address] [place] [phone] 12/15/2024 6:45 EST Treatment [facility] [address] [place] [address] Carlota Jin MD [address] [place] [address], [facility] [address] [place] [phone] 12/18/2024 6:45 EST Treatment [facility] [address] [place], [place] [phone] Carlota Jin MD 1 [facility], [facility] [address] [place] [phone] 12/20/2024 6:45 EST Treatment [facility] [address] [place], [place] [phone] Carlota Jin MD 1 [facility], [facility] [address] [place] [phone] 12/22/2024 6:45 EST Treatment [facility] [address] [place], [place] [phone] Carlota Jin MD 1 [facility], [facility] [address] [place] [phone] 12/25/2024 6:45 EST Treatment [facility] [address] [place], [place] [phone] Carlota Jin MD 1 [facility], [facility] [address] [place] [phone] 12/27/2024 6:45 EST Treatment [facility] - [place] [address] [place], [place] [phone] Carlota Jin MD 1 [facility], [facility] [address] [place] [phone] 12/29/2024 6:45 EST Treatment [facility] [address] [place], [place] [phone] Carlota Jin MD 1 [facility], [facility] [address] [place] [phone] 01/01/2025 6:45 EDT Treatment [facility] - [place] [address] [place], [place] [phone] Carlota Jin MD 1 [facility], [facility] [address] [place] [phone] 01/03/2025 6:45 EDT Treatment [facility] [address] [place], [place] [id number] Carlota Jin MD 1 [facility], [facility] [address] [place] [phone] 01/05/2025 6:45 EDT Treatment [facility] [address] [place], [place] [id number] Carlota Jin MD 1 [facility], [facility] [address] [place] [phone] 01/08/2025 6:45 EDT Treatment [facility] [address] [place], [place] [phone] Carlota Jin MD 1 [facility], [facility] [address] [place] [phone] 01/10/2025 6:45 EDT Treatment [facility] [address] [place], [place] [id number] Carlota Jin MD 1 [facility], [address] [phone] 01/12/2025 6:45 EDT Treatment [facility] - [place] [address] [place], [place] [id number] Carlota Jin MD 1 [facility], [facility] [address] [place] [phone] 01/15/2025 6:45 EDT Treatment [facility] [address] [place], [place] [id number] Carlota Jin MD 1 [facility], [facility] [address] [place] [phone] 01/17/2025 6:45 EDT Treatment [facility] [address] [place], [place] [id number] Carlota Jin MD 1 [facility], [facility] [address] [place] [phone] 01/19/2025 6:45 EDT Treatment [facility] [address] [place] [address] Carlota Jin MD 1 [facility], [facility] [address] [place] [phone] 01/22/2025 6:45 EDT Treatment [facility] [address] [place], [place] [phone] Carlota Jin MD 1 [facility], [facility] [address] [place] [phone] 01/24/2025 6:45 EDT Treatment [facility] [address] [place], [place] [id number] Carlota Jin MD 1 [facility], [facility] [address] [place] [phone] 01/26/2025 6:45 EDT Treatment [facility] [place] [address] [place], [place] [id number] Carlota Jin MD 1 [facility], [facility] [address] [place] [phone] 01/29/2025 6:45 EDT Treatment [facility] [address] [place], [place] [id number] Carlota Jin MD 1 [facility], [facility] [address] [place] [phone] 01/31/2025 6:45 EDT Treatment [facility] [address] [place], [place] [id number] Carlota Jin MD 1 [facility], [facility] [address] [place] [phone] 02/02/2025 6:45 EDT Treatment [facility] [address] [place], [place] [id number] Carlota Jin MD 1 [facility], [facility] [address] [place] [phone] 02/05/2025 6:45 EDT Treatment [facility] [address] [place], [place] [id number] Carlota Jin MD [address] [place] [address], [address] [phone] 02/07/2025 6:45 EDT Treatment [facility] [address] [place], [place] [id number] Carlota Jin MD [address] [place] [address], [facility] [address] [place] [phone] 02/09/2025 6:45 EDT Treatment [facility] [address] [place], [place] [id number] Carlota Jin MD 1 [facility], [facility] [address] [place] [phone] 02/12/2025 6:45 EDT Treatment [facility] [address] [place], [place] [id number] Carlota Jin MD 1 [facility], [facility] [address] [place] [phone] 02/14/2025 6:45 EDT Treatment [facility] [address] [place], [place] [id number] Carlota Jin MD 1 [facility], [address] [phone] 02/16/2025 6:45 EDT Treatment [facility] - [place] [address] [place], [place] [id number] Carlota Jin MD 1 [facility], [address] [phone] 02/19/2025 6:45 EDT Treatment [facility] - [place] [address] [place], [place] [id number] Carlota Jin MD 1 [facility], [address] [phone] 02/21/2025 6:45 EDT Treatment [facility] [place] [address] [place], [place] [phone] Carlota Jin MD [address] [phone] documented as of this encounter Procedures Procedure Name Priority Date/Time Associated Diagnosis Comments COMPLETE BLOOD COUNT Routine 03/22/2024 17:26 EDT ESRD (end stage renal disease) ([facility]) HEMODIALYSIS Routine 03/22/2024 17:19 EDT ESRD (end stage renal disease) ([facility]) documented in this encounter Results * (ABNORMAL) COMPLETE BLOOD COUNT (03/22/2024 17:26 EDT) WBC 9.65 4.00 - 10.40 K/cmm 03/23/2024 21:23 [facility] RBC 2.74(L) 4.36 - 5.78 M/cmm 03/23/2024 21:23 [facility] Hemoglobin 7.8(L) 13.8 - 17.3 g/dL 03/23/2024 21:23 [facility] HCT 25.1(L) 39.5 - 50.2 % 03/23/2024 21:23 [facility] MCV 92 81 - 95 fL 03/23/2024 21:23 [facility] MCH 28.5 27.6 - 33.0 pg 03/23/2024 21:23 [facility] MCHC 31.1(L) 32.8 - 36.4 g/dL 03/23/2024 21:23 [facility] RDW-CV 17.3(H) <14.2 % 03/23/2024 21:23 [facility] RDW-SD 58.2(H) <46.0 fl 03/23/2024 21:23 [facility] PLT 340 141 - 377 K/cmm 03/23/2024 21:23 [facility] MPV 11.5 9.5 - 12.7 fL 03/23/2024 21:23 [facility] Blood VENOUS BLOOD / Unknown Venipuncture / Unknown 03/22/2024 17:26 EDT 03/22/2024 19:39 EDT us Skye Gomez [facility] & PF4 ORDERABLES Final Result [facility] [address] [place] [address] documented in this encounter Visit Diagnoses Diagnosis ESRD (end stage renal disease) ([facility])- Primary End stage renal disease Anemia of chronic renal failure, unspecified CKD stage Hypoalbuminemia Other disorders of plasma protein metabolism Secondary hyperparathyroidism ([facility]) Secondary hyperparathyroidism (of renal origin) documented in this encounter Administered Medications Inactive Administered Medications - up to 3 most recent administrations Medication Order MAR Action Action Date Dose Rate Site calcium carbonate (TUMS) tablet 500 mg (200 mg elemental calcium) 2 Tablet 2 Tablet, oral, ONCE IN DIALYSIS, 1 dose, On Wed03/22/24 at 1745, Routine, DialysisIndications:ESRD (end stage renal disease) ([facility]),Secondary hyperparathyroidism ([facility]) Given 03/22/2024 19:00 EDT 2 Tablets epoetin ken (EPOGEN) 20,000 unit/2 mL injection 8,000 Units 8,000 Units, intravenous, ONCE IN DIALYSIS, 1 dose, On Wed03/22/24 at 1745, Routine, DialysisIndications:ESRD (end stage renal disease) ([facility]),Anemia of chronic renal failure, unspecified CKD stage Given 03/22/2024 18:59 EDT 8,000 Units heparin injection 7,000 Units 7,000 Units, intravenous, ONCE IN DIALYSIS, 1 dose, On Wed03/22/24 at 1745, Routine, Dialysis, Now x1 bolus 3400 units to be given at the beginning of dialysis 900 units/hour to be given over the course of dialysis (7000 units total). Stop 1 hour prior to end of treatment. To be administered per Policy [id number].Indications:ESRD (end stage renal disease) ([facility]) Given 03/22/2024 18:59 EDT 7,000 Units LiquaCel liquid protein liquid 30 mL 30 mL, oral, ONCE IN DIALYSIS, 1 dose, On Wed03/22/24 at 1745, Patient's flavor preference: either, RoutineIndications:ESRD (end stage renal disease) ([facility]),Hypoalbuminemia Given 03/22/2024 19:00 EDT 30 mL documented in this encounter Orders Dialysis Count Last Ordered Date First Orde red Date HEMODIALYSIS 1 03/22/2024 documented in this encounter Additional Health Concerns Infection Onset Date Last Indicated Resolved Time COVID-19 Comment:Collected @ [facility]. 03/12/2024 03/13/2024 04/01/2024 22: 15 EDT documented as of this encounter Care Teams Brick Cleaner Relationship Specialty Start Date End Date Ken Greer MD [address] [place] [address] PCP - General 07/07/23 documented as of this encounter
--- OUTSIDE RECORDS SUMMARY | 2024-12-05 12:06 | XMS_ITS | Encounter Summary ---
Author Organization [facility] Address [address] [place] [address] Care Team Providers Care Cruise Coordinator Name Role Phone Ken Greer MD Primary Care Provider [phone] Reason for Visit * Episode Based Medications (Routine) - New Request Specialty Diagnoses / Procedures Referred By Nader pena Referred To Contact Diagnoses ESRD (end stage renal disease) ([facility]) Carlota Jin MD [address] [place] [phone] Phone: tel: fax: [facility] [place] [address] [place] [address] Phone: tel: fax: Referral ID Status Reason Start Date Expiration Date V isits Requested Visits Authorized [id number] New Request 03/17/2024 1 1 Encounter Details Date Type Department Care Team (Latest Contact Info) Description 03/31/2024 6:45 EDT Treatment [facility] [address] [place], [place] [phone] Carlota Jin MD [address] [place] [phone] ESRD (end stage renal disease) ([facility]) (Primary Dx); Anemia of chronic renal failure, unspecified CKD stage; Hypoalbuminemia; Secondary hyperparathyroidism ([facility]) Social History Tobacco Use Types Packs/Day [...] - Temperature - - Respiratory Rate 16 03/31/2024 1737 EDT Oxygen Saturation - - Inhaled Oxygen Concentration - - Weight 84.4 kg (186 lb 1.1 oz) 03/31/2024 1735 E DT Height - - Body Mass Index 26.7 12/20/2023 2202 EST documented in this encounter [...] Flowsheet Note - Melissa Crespo RN - 03/31/20242150 EDT 03/31/242048 Post-Hemodialysis Assessment Total Blood Processed (L) 67.76 Liters On Line Clearance: spKt/V 1.23 spKt/V Dialyzer Clearance Lightly streaked Treatment UFR (ml:kg:hr) 23.24 ml:kg:hr Critline refill Not done Fluid Removed (L) 3 L Post-Dialysis Scale Weight 99.7 kg (219 lb 12.8 oz) Post Weight Estimated? 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 ?Misweigh?) Wheelchair Weight 20.8 kg (45 lb 13.7 oz) Prosthesis Weight 0 kg (0 lb) Post-Treatment Weight (kg) 78.9 Treatment Weight Change (kg) 5.5 kg Day Target Weight (kg) 81.9 Post Sitting/Lying BP 185/88 Post Sitting/Lying pulse 75 Temp 36.6 ??C (97.9 ??F) Temp src Temporal Minutes Short -180 Post access assessment Bruit present: Yes Thrill Present AVF/AFG Hemostasis achieved Yes Note Tech held site for 10mins Orientation Alert and Oriented x3 [...] Description 12/06/2024 6:45 EST Treatment [facility] [place] [address] [place] [id number] [facility] [address] [place] [phone] 12/08/2024 6:45 EST Treatment [facility] [address] [place] [phone] Carlota Jin MD 1 [facility] [address] [place] [phone] 12/11/2024 6:45 EST Treatment [facility] [place] [address] [place], [place] [phone] Carlota Jin MD 1 [facility], [facility] [address] [place] [phone] 12/13/2024 6:45 EST Treatment [facility] [place] [address] [place] [address] Carlota Jin MD 1 [facility], [facility] [address] [place] [phone] 12/15/2024 6:45 EST Treatment [facility] [place] [address] [place], [place] [phone] Carlota Jin MD [address] [facility], [address] [phone] 12/18/2024 6:45 EST Treatment [facility] [place] [address] [place] [address] Carlota Jin MD 1 [facility], [facility] [address] [place] [phone] 12/20/2024 6:45 EST Treatment [facility] [place] [address] [place], [place] [phone] Carlota Jin MD 1 [facility], [facility] [address] [place] [phone] 12/22/2024 6:45 EST Treatment [facility] [place] [address] [place], [place] [phone] Carlota Jin MD [address] [facility], [facility] [address] [place] [phone] 12/25/2024 6:45 EST Treatment [facility] [place] [address] [place], [place] [phone] Carlota Jin MD [address] [facility], [facility] [address] [place] [phone] 12/27/2024 6:45 EST Treatment [facility] [place] [address] [place], [place] [phone] Carlota Jin MD [address] [facility], [facility] [address] [place] [phone] 12/29/2024 6:45 EST Treatment [facility] [place] [address] [place], [place] [address] Carlota Jin MD 1 [facility], [facility] [address] [place] [phone] 01/01/2025 6:45 EDT Treatment [facility] [place] [address] [place], [place] [phone] Carlota Jin MD [address] [facility], [facility] [address] [place] [phone] 01/03/2025 6:45 EDT Treatment [facility] [place] [address] [place] [address] Carlota Jin MD 1 [facility], [facility] [address] [place] [phone] 01/05/2025 6:45 EDT Treatment [facility] [place] [address] [place] [address] Carlota Jin MD 1 [facility], [address] [phone] 01/08/2025 6:45 EDT Treatment [facility] [place] [address] [place], [place] [phone] Carlota Jin MD [address] [facility], [address] [phone] 01/10/2025 6:45 EDT Treatment [facility] [place] [address] [place], [place] [phone] Carlota Jin MD [address] [facility], [address] [phone] 01/12/2025 6:45 EDT Treatment [facility] [place] [address] [place], [place] [phone] Carlota Jin MD [address] [facility], [address] [phone] 01/15/2025 6:45 EDT Treatment [facility] [place] [address] [place], [place] [phone] Carlota Jin MD 1 [facility], [facility] [address] [place] [phone] 01/17/2025 6:45 EDT Treatment [facility] [place] [address] [place], [place] [phone] Carlota Jin MD 1 [facility], [facility] [address] [place] [phone] 01/19/2025 6:45 EDT Treatment [facility] [place] [address] [place], [place] [phone] Carlota Jin MD 1 [facility], [facility] [address] [place] [phone] 01/22/2025 6:45 EDT Treatment [facility] [place] [address] [place], [place] [phone] Carlota Jin MD 1 [facility], [facility] [address] [place] [phone] 01/24/2025 6:45 EDT Treatment [facility] [place] [address] [place], [place] [phone] Carlota Jin MD [address] [facility], [facility] [address] [place] [phone] 01/26/2025 6:45 EDT Treatment [facility] [place] [address] [place], [place] [phone] Carlota Jin MD 1 [facility], [facility] [address] [place] [phone] 01/29/2025 6:45 EDT Treatment [facility] [place] [address] [place], [place] [address] Carlota Jin MD 1 [facility], [facility] [address] [place] [phone] 01/31/2025 6:45 EDT Treatment [facility] [place] [address] [place], [place] [phone] Carlota Jin MD [address] [facility], [facility] [address] [place] [phone] 02/02/2025 6:45 EDT Treatment [facility] [place] [address] [place], [place] [phone] Carlota Jin MD 1 [facility], [facility] [address] [place] [phone] 02/05/2025 6:45 EDT Treatment [facility] [place] [address] [place], [place] [phone] Carlota Jin MD 1 [facility], [address] [phone] 02/07/2025 6:45 EDT Treatment [facility] [place] [address] [place], [place] [phone] Carlota Jin MD 1 [facility], [facility] [place] [phone] 02/09/2025 6:45 EDT Treatment [facility] [place] [address] [place], [place] [phone] Carlota Jin MD 1 [facility] [place] [phone] 02/12/2025 6:45 EDT Treatment [facility] [place] [address] [place], [place] [address] Carlota Jin MD 1 [facility], [facility] [address] [place] [phone] 02/14/2025 6:45 EDT Treatment [facility] [place] [address] [place], [place] [phone] Carlota Jin MD 1 [facility], [facility] [address] [place] [phone] 02/16/2025 6:45 EDT Treatment [facility] [place] [address] [place], [place] [phone] Carlota Jin MD 1 [facility], [facility] [address] [place] [phone] 02/19/2025 6:45 EDT Treatment [facility] [place] [address] [place], [place] [phone] Carlota Jin MD 1 [facility], [facility] [address] [place] [phone] 02/21/2025 6:45 EDT Treatment [facility] [address] [place], [place] [phone] Carlota Jin MD [address] [facility], [facility] [address] [place] [phone] documented as of this encounter Procedures Procedure Name Priority Date/Time Associated Diagnosis Comments HEMODIALYSIS Routine 03/31/2024 17:37 EDT ESRD (end stage renal disease) ([facility]) documented in this encounter Visit Diagnoses Diagnosis ESRD (end stage renal disease) ([facility])- Primary End stage renal disease Anemia of chronic renal failure, unspecified CKD stage Hypoalbuminemia Other disorders of plasma protein metabolism Secondary hyperparathyroidism ([facility]) Secondary hyperparathyroidism (of renal origin) documented in this encounter Administered Medications Inactive Administered Medications - up to 3 most recent administrations Medication Order MAR Action Action Date Dose Rate Site calcium carbonate (TUMS) tablet 500 mg (200 mg elemental calcium) 2 Tablet 2 Tablet, oral, ONCE IN DIALYSIS, 1 dose, On Wed03/31/24 at 1800, Routine, DialysisIndications:ESRD (end stage renal disease) ([facility]),Secondary hyperparathyroidism ([facility]) Given 03/31/2024 20:40 EDT 2 Tablets epoetin ken (EPOGEN) 20,000 unit/2 mL injection 8,000 Units 8,000 Units, intravenous, ONCE IN DIALYSIS, 1 dose, On Wed03/31/24 at 1800, Routine, DialysisIndications:ESRD (end stage renal disease) ([facility]),Anemia of chronic renal failure, unspecified CKD stage Given 03/31/2024 20:40 EDT 8,000 Units heparin injection 7,000 Units 7,000 Units, intravenous, ONCE IN DIALYSIS, 1 dose, On Wed03/31/24 at 1800, Routine, Dialysis, Now x1 bolus 3400 units to be given at the beginning of dialysis 900 units/hour to be given over the course of dialysis (7000 units total). Stop 1 hour prior to end of treatment. To be administered per Policy [id number].Indications:ESRD (end stage renal disease) ([facility]) Given 03/31/2024 17:49 EDT 7,000 Units iron sucrose (VENOFER) injection 200 mg 200 mg, intravenous, ONCE IN DIALYSIS, 1 dose, On Wed03/31/24 at 1800, Routine, DialysisIndications:ESRD (end stage renal disease) ([facility]) Given 03/31/2024 20:40 EDT 200 mg LiquaCel liquid protein liquid 30 mL 30 mL, oral, ONCE IN DIALYSIS, 1 dose, On Wed03/31/24 at 1800, Patient's flavor preference: either, RoutineIndications:ESRD (end stage renal disease) ([facility]),Hypoalbuminemia Given 03/31/2024 20:40 EDT 30 mL documented in this encounter Orders Dialysis Count Last Ordered Date First Orde red Date HEMODIALYSIS 1 03/31/2024 documented in this encounter Additional Health Concerns Infection Onset Date Last Indicated Resolved Time COVID-19 Comment:Collected @ [facility]. 03/12/2024 03/13/2024 04/01/2024 22: 15 EDT documented as of this encounter Care Teams Cruise Coordinator Relationship Specialty Start Date End Date Ken [place] [address] [place] [address] PCP - General 07/07/23 documented as of this encounter
--- OUTSIDE RECORDS SUMMARY | 2024-12-05 12:06 | XMS_ITS | Encounter Summary ---
Author Organization [facility] Address [address] [place] [address] Care Team Providers Care Filter Press Tender Head Name Role Phone Ken Greer MD Primary Care Provider [phone] Reason for Visit * Episode Based Medications (Routine) - New Request Specialty Diagnoses / Procedures Referred By Nader pena Referred To Contact Diagnoses ESRD (end stage renal disease) ([facility]) Carlota Jin MD [address] [place] [phone] Phone: tel: fax: [facility] - [place] [address] [place] [address] Phone: tel: fax: Referral ID Status Reason Start Date Expiration Date V isits Requested Visits Authorized [id number] New Request 03/17/2024 1 1 Encounter Details Date Type Department Care Team (Latest Contact Info) Description 03/20/2024 6:45 EDT Treatment [facility] [address] [place], [place] [phone] Carlota Jin MD [address] [place] [phone] ESRD (end stage renal disease) ([facility]) (Primary Dx); Anemia of chronic renal failure, unspecified CKD stage; Hypoalbuminemia; Secondary hyperparathyroidism ([facility]) Social History Tobacco Use Types Packs/Day [...] - Temperature - - Respiratory Rate 16 03/20/2024 2140 EDT Oxygen Saturation - - Inhaled Oxygen Concentration - - Weight 88.7 kg (195 lb 8.8 oz) 03/20/2024 1726 E DT Height - - Body Mass Index 28.06 12/20/2023 2202 EST documented in this encounter [...] Flowsheet Note - Lewis Barnes RN - 03/20/20242146 EDT 03/20/242139 Post-Hemodialysis Assessment Total Blood Processed (L) 68.63 Liters On Line Clearance: spKt/V 1.21 spKt/V Dialyzer Clearance Lightly streaked Treatment UFR (ml:kg:hr) 13.43 ml:kg:hr Final Critline Profile (%/hr) -3.87 Final Profile Profile B Critline refill Negative Fluid Removed (L) 4.11 L Post-Dialysis Scale Weight 106 kg (233 lb 11 oz) Wheelchair Weight 20.9 kg (46 lb 1.2 oz) Post-Treatment Weight (kg) 85.1 Treatment Weight Change (kg) 3.6 kg Day Target Weight (kg) 85.1 Post Sitting/Lying BP 162/80 Post Sitting/Lying pulse 71 Post Standing BP (wheelchair transfer) Post Standing Pulse (wheelchair transfer) Temp 37 ??C (98.6 ??F) Temp src Temporal Resp 16 Post access assessment Bruit present: Yes Thrill Present AVF/AFG Hemostasis achieved Yes Orientation Alert and [...] Treatment [facility] - [place] [address] [place], [place] [phone] Carlota Jin MD 1 [facility] Level [address] [place] [phone] 12/08/2024 6:45 EST Treatment [facility] [address] [place] [phone] Carlota Jin MD 1 [facility], Level [address] [place] [phone] 12/11/2024 6:45 EST Treatment [facility] - [place] [address] [place], [place] [phone] Carlota Jin MD 1 [facility], [facility] 2 [place] [phone] 12/13/2024 6:45 EST Treatment [facility] - [place] [address] [place], [place] [phone] Carlota Jin MD 1 [facility], [facility] 2 [place] [phone] 12/15/2024 6:45 EST Treatment [facility] [place] [address] [place], [place] [phone] Carlota Jin MD 1 [facility], [facility] 2 [place] [phone] 12/18/2024 6:45 EST Treatment [facility] [place] [address] [place] [address] Carlota Jin MD 1 [facility], [facility] 2 [place] [phone] 12/20/2024 6:45 EST Treatment [facility] [place] [address] [place], [place] [phone] Carlota Jin MD 1 [facility], [facility] 2 [place] [phone] 12/22/2024 6:45 EST Treatment [facility] - [place] [address] [place], [place] [phone] Carlota Jin MD 1 [facility], [facility] 2 [place] [phone] 12/25/2024 6:45 EST Treatment [facility] [place] [address] [place], [place] [phone] Carlota Jin MD 1 [facility], [facility] 2 [place] [phone] 12/27/2024 6:45 EST Treatment [facility] - [place] [address] [place], [place] [phone] Carlota Jin MD 1 [facility], [facility] 2 [place] [phone] 12/29/2024 6:45 EST Treatment [facility] [place] [address] [place], [place] [phone] Carlota Jin MD [address] [place] [address], [facility] 2 [place] [phone] 01/01/2025 6:45 EDT Treatment [facility] [place] [address] [place], [place] [phone] Carlota Jin MD 1 [facility], [facility] 2 [place] [phone] 01/03/2025 6:45 EDT Treatment [facility] - [place] [address] [place], [place] [phone] Carlota Jin MD 1 [facility], [facility] 2 [place] [phone] 01/05/2025 6:45 EDT Treatment [facility] - [place] [address] [place], [place] [phone] Carlota Jin MD 1 [facility], [facility] 2 [place] [phone] 01/08/2025 6:45 EDT Treatment [facility] - [place] [address] [place] [address] Carlota Jin MD 1 [facility], [facility] 2 [place] [phone] 01/10/2025 6:45 EDT Treatment [facility] [place] [address] [place] [address] Carlota Jin MD 1 [facility], [facility] 2 [place] [phone] 01/12/2025 6:45 EDT Treatment [facility] [place] [address] [place] [address] Carlota Jin MD 1 [facility], [facility] 2 [place] [phone] 01/15/2025 6:45 EDT Treatment [facility] [place] [address] [place], [place] [phone] Carlota Jin MD 1 [facility], [facility] 2 [place] [phone] 01/17/2025 6:45 EDT Treatment [facility] - [place] [address] [place], [place] [phone] Carlota Jin MD 1 [facility], [facility] 2 [place] [phone] 01/19/2025 6:45 EDT Treatment [facility] - [place] [address] [place], [place] [phone] Carlota Jin MD 1 [facility], [facility] 2 [place] [phone] 01/22/2025 6:45 EDT Treatment [facility] [place] [address] [place] [address] Carlota Jin MD 1 [facility], [address] [phone] 01/24/2025 6:45 EDT Treatment [facility] [place] [address] [place], [place] [phone] Carlota Jin MD 1 [facility], [facility] 2 [place] [phone] 01/26/2025 6:45 EDT Treatment [facility] - [place] [address] [place], [place] [phone] Carlota Jin MD 1 [facility], [facility] 2 [place] [phone] 01/29/2025 6:45 EDT Treatment [facility] - [place] [address] [place], [place] [address] Carlota Jin MD 1 [facility], [facility] 2 [place] [phone] 01/31/2025 6:45 EDT Treatment [facility] - [place] [address] [place] [address] Carlota Jin MD 1 [facility], [facility] 2 [place] [phone] 02/02/2025 6:45 EDT Treatment [facility] - [place] [address] [place], [place] [address] [phone] Carlota Jin MD 1 [facility], [facility] 2 [place] [phone] 02/05/2025 6:45 EDT Treatment [facility] [place] [address] [place] [address] Carlota Jin MD 1 [facility], [facility] 2 [place] [phone] 02/07/2025 6:45 EDT Treatment [facility] [place] [address] [place] [address] Carlota Jin MD 1 [facility], [facility] 2 [place] [phone] 02/09/2025 6:45 EDT Treatment [facility] - [place] [address] [place], [place] [phone] Carlota Jin MD 1 [facility], [facility] 2 [place] [phone] 02/12/2025 6:45 EDT Treatment [facility] - [place] [address] [place], [place] [phone] Carlota Jin MD 1 [facility], [address] [phone] 02/14/2025 6:45 EDT Treatment [facility] [place] [address] [place], [place] [phone] Carlota Jin MD [address] [phone] 02/16/2025 6:45 EDT Treatment [facility] - [place] [address] [place], [place] [phone] Carlota Jin MD 1 [facility], [address] [phone] 02/19/2025 6:45 EDT Treatment [facility] - [place] [address] [place], [place] [phone] Carlota Jin MD 1 [facility], [address] [phone] 02/21/2025 6:45 EDT Treatment [facility] [place] [address] [place], [place] [phone] Carlota Jin MD 1 [facility], [address] [phone] documented as of this encounter Procedures Procedure Name Priority Date/Time Associated Diagnosis Comments HEMODIALYSIS Routine 03/20/2024 17:26 EDT ESRD (end stage renal disease) ([facility]) documented in this encounter Visit Diagnoses [...] oral, ONCE IN DIALYSIS, 1 dose, On Wed03/20/24 at 1745, Routine, DialysisIndications:ESRD (end stage renal disease) ([facility]),Secondary hyperparathyroidism ([facility]) Given 03/20/2024 19:15 EDT 2 Tablets epoetin ken (EPOGEN) 20,000 unit/2 mL injection 8,000 Units 8,000 Units, intravenous, ONCE IN DIALYSIS, 1 dose, On Wed03/20/24 at 1745, Routine, DialysisIndications:ESRD (end stage renal disease) ([facility]),Anemia of chronic renal failure, unspecified CKD stage Given 03/20/2024 19:15 EDT 8,000 Units heparin injection 7,000 Units 7,000 Units, intravenous, ONCE IN DIALYSIS, 1 dose, On Wed03/20/24 at 1745, Routine, Dialysis, Now x1 bolus 3400 units to be given at the beginning of dialysis 900 units/hour to be given over the course of dialysis (7000 units total). Stop 1 hour prior to end of treatment. To be administered per Policy [id number].Indications:ESRD (end stage renal disease) ([facility]) Given 03/20/2024 19:15 EDT 7,000 Units LiquaCel liquid protein liquid 30 mL 30 mL, oral, ONCE IN DIALYSIS, 1 dose, On Wed03/20/24 at 1745, Patient's flavor preference: either, RoutineIndications:ESRD (end stage renal disease) ([facility]),Hypoalbuminemia Given 03/20/2024 19:15 EDT 30 mL documented in this encounter Orders Dialysis Count Last Ordered Date First Orde red Date HEMODIALYSIS 1 03/20/2024 documented in this encounter Additional Health Concerns Infection Onset Date Last Indicated Resolved Time COVID-19 Comment:Collected @ [facility]. 03/12/2024 03/13/2024 04/01/2024 22: 15 EDT documented as of this encounter Care Teams Filter Press Tender Head Relationship Specialty Start Date End Date Ken Greer MD [address] [place] [address] PCP - General 07/07/23 documented as of this encounter
--- OUTSIDE RECORDS SUMMARY | 2024-12-05 12:06 | XMS_ITS | Encounter Summary ---
Author Organization [facility] Address [address] [place] [address] Care Team Providers Care Blast Hole Driller Name Role Phone Ken Greer MD Primary Care Provider [phone] Reason for Visit * Episode Based Medications (Routine) - New Request Specialty Diagnoses / Procedures Referred By Nader pena Referred To Contact Diagnoses ESRD (end stage renal disease) ([facility]) Carlota Jin MD [address] [place] [phone] Phone: tel: fax: [facility] [place] [address] [place] [address] Phone: tel: fax: Referral ID Status Reason Start Date Expiration Date V isits Requested Visits Authorized [id number] New Request 03/17/2024 1 1 Encounter Details Date Type Department Care Team (Latest Contact Info) Description 03/27/2024 6:45 EDT Treatment [facility] [address] [place], [place] [phone] Carlota Jin MD [address] [place] [phone] ESRD (end stage renal disease) ([facility]) (Primary Dx); Anemia of chronic renal failure, unspecified CKD stage; Hypoalbuminemia; Secondary hyperparathyroidism ([facility]) Social History Tobacco Use Types Packs/Day Years [...] - Temperature - - Respiratory Rate 16 03/27/2024 2118 EDT Oxygen Saturation - - Inhaled Oxygen Concentration - - Weight 87.7 kg (193 lb 5.5 oz) 03/27/2024 1731 E DT Height - - Body Mass Index 27.74 12/20/2023 2202 EST documented in this encounter [...] Miscellaneous Notes * Flowsheet Note - Melissa Crepso RN - 03/27/20242148 EDT 03/27/242117 Post-Hemodialysis Assessment Total Blood Processed (L) 67.34 Liters On Line Clearance: spKt/V 1.24 spKt/V Dialyzer Clearance Lightly streaked Final Critline Profile (%/hr) -4.81 Final Profile Profile B Fluid Removed (L) 4 L Post-Dialysis Scale Weight 104.7 kg (230 lb 13.2 oz) Wheelchair Weight 20.9 kg (46 lb 1.2 oz) Prosthesis Weight 0 kg (0 lb) Post-Treatment Weight (kg) 83.8 Post Sitting/Lying BP 152/74 Post Sitting/Lying pulse 71 Temp 36.6 ??C (97.9 ??F) Temp src Temporal Resp 16 Post access assessment Bruit present: Yes Thrill Present AVF/AFG Hemostasis achieved Yes Edema Assessment Edema? Yes Edema Location Peripheral, lower Edema Severity Trace Shortness of breath Shortness of breath? No Heart Rate Heart Rate Regular Orientation Alert and Oriented x3 Yes Time Yes Place Yes Person Yes Cooperative Yes Disoriented No Discharge Ambulation Methods Departs via w/c Wrap up items Patient Response to Treatment Tolerated tx. Removed 4000 UF goal. Stable upon DC from unit. Comments No issues during tx, No concerns voiced post tx. * Dialysis Rounding - Carlota Jin MD - 03/27/2024 0645 EDT Dialysis Provider's Routine Assessment Gerson Bruner was seen and examined as appropriate during Dialysis. Pertinent lab results were reviewed. Changes since last visit: None Changes to current prescriptions/orders: None Remains on isolation for Covid. He says that he is doing well. I will see him when he is off isolation later this month. Carlota Jin MD documented in this encounter Plan of Treatment Upcoming Encounters Date Type Department Care Team (Late st Contact Info) Description 12/06/2024 6:45 EST Treatment [facility] [place] [address] [place], [place] [phone] Carlota Jin MD [facility] [address] [place] [phone] 12/08/2024 6:45 EST Treatment [facility] [place] [address] [place], [place] [phone] Carlota Jin MD [facility] [address] [place] [phone] 12/11/2024 6:45 EST Treatment [facility] [place] [address] [place], [place] [phone] Carlota Jin MD [facility], [facility] [address] [place] [phone] 12/13/2024 6:45 EST Treatment [facility] [place] [address] [place], [place] [phone] Carlota Jin MD [facility], [facility] [address] [place] [phone] 12/15/2024 6:45 EST Treatment [facility] [place] [address] [place], [place] [phone] Carlota Jin MD [facility], [facility] [address] [place] [phone] 12/18/2024 6:45 EST Treatment [facility] [place] [address] [place], [place] [phone] Carlota Jin MD 1 [facility], Level [address] [place] [phone] 12/20/2024 6:45 EST Treatment [facility] [place] [address] [place], [place] [phone] Carlota Jin MD 1 [facility], [facility] [address] [place] [phone] 12/22/2024 6:45 EST Treatment [facility] [place] [address] [place], [place] [phone] Carlota Jin MD 1 [facility], [facility] [address] [place] [phone] 12/25/2024 6:45 EST Treatment [facility] [place] [address] [place], [place] [phone] Carlota Jin MD 1 [facility], [facility] [address] [place] [phone] 12/27/2024 6:45 EST Treatment [facility] [place] [address] [place] [address] Carlota Jin MD 1 [facility], [facility] [address] [place] [phone] 12/29/2024 6:45 EST Treatment [facility] [place] [address] [place], [place] [address] Carlota Jin MD 1 [facility], [facility] [address] [place] [phone] 01/01/2025 6:45 EDT Treatment [facility] [place] [address] [place], [place] [phone] Carlota Jin MD 1 [facility], [facility] [address] [place] [phone] 01/03/2025 6:45 EDT Treatment [facility] [place] [address] [place], [place] [phone] Carlota Jin MD [address] [place] [address], [facility] [address] [place] [phone] 01/05/2025 6:45 EDT Treatment [facility] [place] [address] [place], [place] [phone] Carlota Jin MD [address] [place] [address], [address] [phone] 01/08/2025 6:45 EDT Treatment [facility] [place] [address] [place], [place] [phone] Carlota Jin MD [address] [place] [address], [facility] [address] [place] [phone] 01/10/2025 6:45 EDT Treatment [facility] [place] [address] [place], [place] [phone] Carlota Jin MD 1 [facility], [facility] [address] [place] [phone] 01/12/2025 6:45 EDT Treatment [facility] [place] [address] [place], [place] [phone] Carlota Jin MD 1 [facility], [facility] [address] [place] [phone] 01/15/2025 6:45 EDT Treatment [facility] [place] [address] [place], [place] [phone] Carlota Jin MD 1 [facility], [facility] [address] [place] [phone] 01/17/2025 6:45 EDT Treatment [facility] [place] [address] [place], [place] [phone] Carlota Jin MD 1 [facility], [facility] [address] [place] [phone] 01/19/2025 6:45 EDT Treatment [facility] [place] [address] [place] [address] Carlota Jin MD 1 [facility], [facility] [address] [place] [phone] 01/22/2025 6:45 EDT Treatment [facility] [place] [address] [place] [address] Carlota Jin MD 1 [facility], [facility] [address] [place] [phone] 01/24/2025 6:45 EDT Treatment [facility] [place] [address] [place], [place] [phone] Carlota Jin MD 1 [facility], [facility] [address] [place] [phone] 01/26/2025 6:45 EDT Treatment [facility] [place] [address] [place], [place] [phone] Carlota Jin MD 1 [facility], [facility] [address] [place] [phone] 01/29/2025 6:45 EDT Treatment [facility] [place] [address] [place], [place] [phone] Carlota Jin MD 1 [facility], [facility] [address] [place] [phone] 01/31/2025 6:45 EDT Treatment [facility] [place] [address] [place], [place] [phone] Carlota Jin MD 1 [facility], [facility] [address] [place] [phone] 02/02/2025 6:45 EDT Treatment [facility] [place] [address] [place], [place] [phone] Carlota Jin MD 1 [facility], [facility] [address] [place] [phone] 02/05/2025 6:45 EDT Treatment [facility] [place] [address] [place], [place] [phone] Carlota Jin MD 1 [facility], [facility] [address] [place] [phone] 02/07/2025 6:45 EDT Treatment [facility] [place] [address] [place], [place] [phone] Carlota Jin MD 1 [facility], [facility] [address] [place] [phone] 02/09/2025 6:45 EDT Treatment [facility] [place] [address] [place] [address] Carlota Jin MD 1 [facility], [facility] [address] [place] [phone] 02/12/2025 6:45 EDT Treatment [facility] [place] [address] [place], [place] [phone] Carlota Jin MD 1 [facility], [address] [phone] 02/14/2025 6:45 EDT Treatment [facility] [place] [address] [place], [place] [phone] Carlota Jin MD 1 [facility], [address] [phone] 02/16/2025 6:45 EDT Treatment [facility] [place] [address] [place], [place] [phone] Carlota Jin MD 1 [facility], [facility] [address] [place] [phone] 02/19/2025 6:45 EDT Treatment [facility] [place] [address] [place], [place] [phone] Carlota Jin MD 1 [facility], [facility] [address] [place] [phone] 02/21/2025 6:45 EDT Treatment [facility] [place] [address] [place], [place] [phone] Carlota Jin MD 1 [facility], [facility] [address] [place] [phone] documented as of this encounter Procedures Procedure Name Priority Date/Time Associated Diagnosis Comments POSTDIALYSIS BUN WITH URR CALCULATION Routine 03/27/2024 21:13 EDT ESRD (end stage renal disease) ([facility]) TRANSFERRIN SATURATION Routine 03/27/2024 17:58 EDT ESRD (end stage renal disease) ([facility]) DIALYSIS ROUTINE - DIALYSIS ONLY (BUN, K, NA, CL, CO2, SANJEEV, ALB, MG, PHOS, ALKP, AST) Routine 03/27/2024 17:58 EDT ESRD (end stage renal disease) ([facility]) PROFILE IRON STUDIES (INCLUDES IRON, IBC, AND FERRITIN) Routine 03/27/2024 17:58 EDT ESRD (end stage renal disease) ([facility]) FERRITIN Routine 03/27/2024 17:58 EDT ESRD (end stage renal disease) ([facility]) HEMODIALYSIS Routine 03/27/2024 17:31 EDT ESRD (end stage renal disease) ([facility]) documented in this encounter Results * (ABNORMAL) POSTDIALYSIS BUN WITH URR CALCULATION (03/27/2024 21:13 EDT) BUN, Postdialysis 33(H) 10 - 26 mg/dL 03/28/2024 21:48 EDT [facility] Urea Reduction Rate 60.2 Not Established % 03/28/2024 21:48 EDT [facility] Comment: NOTE: Reference range not established for Urea Reduction Rate. BUN 83(H) 10 - 26 mg/dL 03/28/2024 21:48 EDT [facility] Blood VENOUS BLOOD / Unknown Venipuncture / Unknown 03/27/2024 21:13 EDT 03/27/2024 21:13 EDT Skye Gomez TEACHER [employer] CHEMISTRY & BLOOD GAS ORDER FRANSISCO Final Result Performing Organization Address [facility]/ZIP Co de Phone Number [facility] [address] [place] [address] * (ABNORMAL) FERRITIN (03/27/2024 17:58 EDT) Ferritin 363(H) 22 - 322 ng/mL 03/28/2024 23:01 EDT [facility] Blood VENOUS BLOOD / Unknown Venipuncture / Unknown 03/27/2024 17:58 EDT 03/27/2024 17:58 EDT Skye Gomez TEACHER [employer] CHEMISTRY & BLOOD GAS ORDER FRANSISCO Final Result Performing Organization Address [facility] Co de Phone Number [facility] [address] [place] [address] * (ABNORMAL) TRANSFERRIN SATURATION (03/27/2024 17:58 EDT) Iron 32(L) 49 - 181 ??g/dL 03/28/2024 21:59 EDT [facility] Iron Binding Capacity 228(L) 240 - 450 ??g/dL 03/28/2024 21:59 EDT [facility] Transferrin Saturation 14(L) 15 - 45 % 03/28/2024 21:59 EDT [facility] Blood VENOUS BLOOD / Unknown Venipuncture / Unknown 03/27/2024 17:58 EDT 03/27/2024 17:58 EDT Skye Gomez TEACHER [employer] CHEMISTRY & BLOOD GAS ORDER FRANSISCO Final Result [facility] [address] [place] [address] * (ABNORMAL) DIALYSIS ROUTINE - DIALYSIS ONLY (BUN, K, NA, CL, CO2, SANJEEV, ALB, MG, PHOS, ALKP, AST) (03/27/2024 17:58 EDT) Sodium 134(L) 136 - 145 mmol/L 03/28/2024 21:44 [facility] Potassium 7.2(H) 3.5 - 5.0 mmol/L 03/28/2024 21:44 [facility] Chloride 100 96 - 110 mmol/L 03/28/2024 21:44 [facility] CO2 Total 21(L) 22 - 32 mmol/L 03/28/2024 21:44 [facility] Calcium 8.8 8.5 - 10.5 mg/dL 03/28/2024 21:44 [facility] Albumin 2.9(L) 3.4 - 4.9 g/dL 03/28/2024 21:44 [facility] Phosphorus 8.4(H) 2.5 - 4.5 mg/dL 03/28/2024 21:44 [facility] Calcium Phos Product 73.9 See Note mg/dL 03/28/2024 21:44 [facility] Comment: NOTE: Reference range not established BUN, Predialysis 83(H) 10 - 26 mg/dL 03/28/2024 21:44 [facility] AST 17 15 - 46 U/L 03/28/2024 21:44 [facility] Alkaline Phosphatase 113 38 - 126 U/L 03/28/2024 21:44 [facility] Magnesium 2.4 1.7 - 2.8 mg/dL 03/28/2024 21:44 [facility] Anion Gap 13 5 - 14 mmol/L 03/28/2024 21:44 [facility] Calculated Calcium 9.7 8.9 - 10.5 mg/dL 03/28/2024 21:44 EDT [facility] Blood VENOUS BLOOD / Unknown Venipuncture / Unknown 03/27/2024 17:58 EDT 03/27/2024 17:58 EDT us Skye Gomez NP CHEMISTRY & BLOOD GAS ORDER FRANSISCO Final Result [facility] [address] [place] [address] documented in this encounter Visit Diagnoses Diagnosis ESRD (end stage renal disease) ([facility])- Primary End stage renal disease Anemia of chronic renal failure, unspecified CKD stage Hypoalbuminemia Other disorders of plasma protein metabolism Secondary hyperparathyroidism ([facility]) Secondary hyperparathyroidism (of renal origin) documented in this encounter Administered Medications Inactive Administered Medications - up to 3 most recent administrations Medication Order MAR Action Action Date Dose Rate Site calcium carbonate (TUMS) tablet 500 mg (200 mg elemental calcium) 2 Tablet 2 Tablet, oral, ONCE IN DIALYSIS, 1 dose, On Wed03/27/24 at 1800, Routine, DialysisIndications:ESRD (end stage renal disease) ([facility]),Secondary hyperparathyroidism ([facility]) Given 03/27/2024 17:38 EDT 2 Tablets epoetin ken (EPOGEN) 20,000 unit/2 mL injection 8,000 Units 8,000 Units, intravenous, ONCE IN DIALYSIS, 1 dose, On Wed03/27/24 at 1800, Routine, DialysisIndications:ESRD (end stage renal disease) ([facility]),Anemia of chronic renal failure, unspecified CKD stage Given 03/27/2024 17:38 EDT 8,000 Units heparin injection 7,000 Units 7,000 Units, intravenous, ONCE IN DIALYSIS, 1 dose, On Wed03/27/24 at 1800, Routine, Dialysis, Now x1 bolus 3400 units to be given at the beginning of dialysis 900 units/hour to be given over the course of dialysis (7000 units total). Stop 1 hour prior to end of treatment. To be administered per Policy [id number].Indications:ESRD (end stage renal disease) ([facility]) Given 03/27/2024 17:55 EDT 7,000 Units LiquaCel liquid protein liquid 30 mL 30 mL, oral, ONCE IN DIALYSIS, 1 dose, On 03/27/24 at 1800, Patient's flavor preference: either, RoutineIndications:ESRD (end stage renal disease) ([facility]),Hypoalbuminemia Given 03/27/2024 18:55 EDT 30 mL documented in this encounter Orders Dialysis Count Last Ordered Date First Orde red Date HEMODIALYSIS 1 03/27/2024 documented in this encounter Additional Health Concerns Infection Onset Date Last Indicated Resolved Time COVID-19 Comment:Collected @ [facility]. 03/12/2024 03/13/2024 04/01/2024 22: 15 EDT documented as of this encounter Care Teams Blast Hole Driller Relationship Specialty Start Date End Date Ken Greer MD [address] [facility] [address] PCP - General 07/07/23 documented as of this encounter
--- OUTSIDE RECORDS SUMMARY | 2024-12-05 12:06 | XMS_ITS | Encounter Summary ---
Author Organization [facility] Address [address] [place] [address] Care Team Providers Care Pipe Organ Tuner And Repairer Name Role Phone Ken Greer MD Primary Care Provider [phone] Encounter Details Date Type Department Care Team (Late st Contact Info) Description 03/31/2024 Documentation Visit [address] [place], [place] [address] Melissa Crespo, RN Social History Tobacco Use [...] Treatment [facility] [place] [address] [place], [place] [phone] Carlota Jin MD 1 [facility], [facility] [address] [place] [phone] 12/08/2024 6:45 EST Treatment [facility] [place] [address] [place], [place] [id number] Carlota Jin MD 1 [facility] 2 [place] [phone] 12/11/2024 6:45 EST Treatment [facility] [place] [address] [place], [place] [phone] Carlota Jin MD 1 [facility], [facility] [address] [place] [phone] 12/13/2024 6:45 EST Treatment [facility] [address] [place], [place] [phone] Carlota Jin MD 1 [facility], [facility] [address] [place] [phone] 12/15/2024 6:45 EST Treatment [facility] - [place] [address] [place], [place] [phone] Carlota Jin MD 1 [facility], [facility] [address] [place] [phone] 12/18/2024 6:45 EST Treatment [facility] [place] [address] [place], [place] [phone] Carlota Jin MD 1 [facility], [facility] [address] [place] [phone] 12/20/2024 6:45 EST Treatment [facility] [place] [address] [place], [place] [phone] Carlota Jin MD 1 [facility], [facility] [address] [place] [phone] 12/22/2024 6:45 EST Treatment [facility] [address] [place], [place] [phone] Carlota Jin MD 1 [facility], [facility] [address] [place] [phone] 12/25/2024 6:45 EST Treatment [facility] [address] [place], [place] [phone] Carlota Jin MD 1 [facility], [facility] [address] [place] [phone] 12/27/2024 6:45 EST Treatment [facility] [place] [address] [place], [place] [phone] Carlota Jin MD 1 [facility], [facility] [address] [place] [phone] 12/29/2024 6:45 EST Treatment [facility] - [place] [address] [place], [place] [phone] Carlota Jin MD 1 [facility], [address] [phone] 01/01/2025 6:45 EDT Treatment [facility] [place] [address] [place], [place] [phone] Carlota Jin MD 1 [facility], [address] [phone] 01/03/2025 6:45 EDT Treatment [facility] [place] [address] [place], [place] [phone] Carlota Jin MD 1 [facility], [address] [phone] 01/05/2025 6:45 EDT Treatment [facility] [place] [address] [place], [place] [phone] Carlota Jin MD [address] [place] [address], [facility] [address] [place] [phone] 01/08/2025 6:45 EDT Treatment [facility] [place] [address] [place], [place] [phone] Carlota Jin MD 1 [facility], [facility] [address] [place] [phone] 01/10/2025 6:45 EDT Treatment [facility] [place] [address] [place], [place] [id number] Carlota Jin MD 1 [facility], [facility] [address] [place] [phone] 01/12/2025 6:45 EDT Treatment [facility] [place] [address] [place], [place] [phone] Carlota Jin MD 1 [facility], [facility] [address] [place] [phone] 01/15/2025 6:45 EDT Treatment [facility] [place] [address] [place], [place] [phone] Carlota Jni MD 1 [facility], [facility] [address] [place] [phone] 01/17/2025 6:45 EDT Treatment [facility] [address] [place], [place] [phone] Carlota Jin MD 1 [facility], [facility] [address] [place] [phone] 01/19/2025 6:45 EDT Treatment [facility] [address] [place], [place] [phone] Carlota Jin MD 1 [facility], [facility] [address] [place] [phone] 01/22/2025 6:45 EDT Treatment [facility] - [place] [address] [place], [place] [phone] Carlota Jin MD 1 [facility], [facility] [address] [place] [phone] 01/24/2025 6:45 EDT Treatment [facility] - [place] [address] [place], [place] [phone] Carlota Jin MD 1 [facility], [facility] [address] [place] [phone] 01/26/2025 6:45 EDT Treatment [facility] [place] [address] [place], [place] [id number] Carlota Jin MD 1 [facility], [facility] [address] [place] [phone] 01/29/2025 6:45 EDT Treatment [facility] [place] [address] [place], [place] [phone] Carlota Jin MD 1 [facility], [facility] [address] [place] [phone] 01/31/2025 6:45 EDT Treatment [facility] [place] [address] [place], [place] [phone] Carlota Jin MD 1 [facility], [facility] [address] [place] [phone] 02/02/2025 6:45 EDT Treatment [facility] - [place] [address] [place], [place] [phone] Carlota Jin MD 1 [facility], [facility] [address] [place] [phone] 02/05/2025 6:45 EDT Treatment [facility] [place] [address] [place], [place] [phone] Carlota Jin MD 1 [facility], [facility] [address] [place] [phone] 02/07/2025 6:45 EDT Treatment [facility] [place] [address] [place] [address] Carlota Jin MD 1 [facility], [address] [phone] 02/09/2025 6:45 EDT Treatment [facility] [place] [address] [place], [place] [phone] Carlota Jin MD 1 [facility], [address] [phone] 02/12/2025 6:45 EDT Treatment [facility] [place] [address] [place] [address] Carlota Jin MD 1 [facility], [facility] [address] [place] [phone] 02/14/2025 6:45 EDT Treatment [facility] [place] [address] [place], [place] [phone] Carlota Jin MD 1 [facility], [facility] [address] [place] [phone] 02/16/2025 6:45 EDT Treatment [facility] [address] [place], [place] [phone] Carlota Jin MD 1 [facility], [facility] [address] [place] [phone] 02/19/2025 6:45 EDT Treatment [facility] [address] [place], [place] [phone] Carlota Jin MD [address] [place] [address], [facility] [address] [place] [phone] 02/21/2025 6:45 EDT Treatment [facility] [address] [place], [place] [phone] Carlota Jin MD [address] [place] [address], [facility] [address] [place] [phone] documented as of this encounter Visit Diagnoses Not on filedocumented in this encounter Additional Health Concerns Infection Onset Date Last Indicated Resolved Time COVID-19 Comment:Collected @ [facility]. 03/12/2024 03/13/2024 04/01/2024 22: 15 EDT documented as of this encounter Care Teams Pipe Organ Tuner And Repairer Relationship Specialty Start Date End Date Ken Greer MD [address] [place] [address] PCP - General 07/07/23 documented as of this encounter
--- OUTSIDE RECORDS SUMMARY | 2024-12-05 12:06 | XMS_ITS | Encounter Summary ---
Author Organization [facility] Address [address] [place] [address] Care Team Providers Care Dried Yeast Supervisor Name Role Phone Ken Greer MD Primary Care Provider [phone] Reason for Visit * Episode Based Medications (Routine) - New Request Specialty Diagnoses / Procedures Referred By Nader pena Referred To Contact Diagnoses ESRD (end stage renal disease) ([facility]) Carlota Jin MD [address] [place] [phone] Phone: tel: fax: [facility] [place] [address] [place] [address] Phone: tel: fax: Referral ID Status Reason Start Date Expiration Date V isits Requested Visits Authorized [id number] New Request 03/17/2024 1 1 Encounter Details Date Type Department Care Team (Latest Contact Info) Description 03/17/2024 6:45 EDT Treatment [facility] [address] [place], [place] [phone] Carlota Jin MD [address] [place] [phone] ESRD (end stage renal disease) ([facility]) (Primary Dx); Anemia of chronic renal failure, unspecified CKD stage; Hypoalbuminemia; Secondary hyperparathyroidism ([facility]) Social History Tobacco Use Types Packs/Day [...] - Temperature - - Respiratory Rate 16 03/17/20242026 EDT Oxygen Saturation - - Inhaled Oxygen Concentration - - Weight 89.9 kg (198 lb 3.1 oz) 03/17/2024 1705 E DT Height - - Body Mass Index 28.44 12/20/2023 2202 EST documented in this encounter [...] Flowsheet Note - Lewis Barnes RN - 03/17/20243 EDT 03/17/242026 Post-Hemodialysis Assessment Total Blood Processed (L) 67.61 Liters On Line Clearance: spKt/V 1.19 spKt/V Dialyzer Clearance Lightly streaked Treatment UFR (ml:kg:hr) 16.29 ml:kg:hr Critline refill Not done Fluid Removed (L) 4.1 L Post-Dialysis Scale Weight 106.4 kg (234 lb 9.1 oz) Wheelchair Weight 20.8 kg (45 lb 13.7 oz) Post-Treatment Weight (kg) 85.6 Treatment Weight Change (kg) 4.3 kg Day Target Weight (kg) 86.3 Post Sitting/Lying BP 178/83 Post Sitting/Lying pulse 70 Post Standing BP (wheelchair transfer) Post Standing Pulse (wheelchair transfer) Temp 36.7 ??C (98.1 ??F) Temp src Temporal Resp 16 Minutes Short -185 Post access assessment Bruit present: Yes Thrill [...] EST Treatment [facility] [address] [place] [address] Carlota Jin MD 1 [facility], [facility] [address] [place] [phone] 12/08/2024 6:45 EST Treatment [facility] [address] [place] [address] Carlota Jin MD 1 [facility], [facility] [address] [place] [phone] 12/11/2024 6:45 EST Treatment [facility] [place] [address] [place], [place] [address] Carlota Jin MD 1 [facility], [facility] 2 [place] [phone] 12/13/2024 6:45 EST Treatment [facility] [place] [address] [place], [place] [phone] Carlota Jin MD 1 [facility], [facility] 2 [place] [phone] 12/15/2024 6:45 EST Treatment [facility] [place] [address] [place] [address] Carlota Jin MD 1 [facility], [facility] [address] [place] [phone] 12/18/2024 6:45 EST Treatment [facility] [address] [place], [place] [phone] Carlota Jin MD 1 [facility], [facility] [address] [place] [phone] 12/20/2024 6:45 EST Treatment [facility] [place] [address] [place], [place] [phone] Carlota Jin MD 1 [facility], [facility] [address] [place] [phone] 12/22/2024 6:45 EST Treatment [facility] [place] [address] [place], [place] [phone] Carlota Jin MD 1 [facility], [facility] [address] [place] [phone] 12/25/2024 6:45 EST Treatment [facility] [place] [address] [place], [place] [phone] Carlota Jin MD 1 [facility], [facility] 2 [place] [phone] 12/27/2024 6:45 EST Treatment [facility] [place] [address] [place], [place] [phone] Carlota Jin MD 1 [facility], [facility] 2 [place] [phone] 12/29/2024 6:45 EST Treatment [facility] [place] [address] [place], [place] [phone] Carlota Jin MD 1 [facility], [facility] 2 [place] [phone] 01/01/2025 6:45 EDT Treatment [facility] [place] [address] [place], [place] [phone] Carlota Jin MD 1 [facility], [facility] 2 [place] [phone] 01/03/2025 6:45 EDT Treatment [facility] [place] [address] [place], [place] [phone] Carlota Jin MD 1 [facility], [facility] 2 [place] [phone] 01/05/2025 6:45 EDT Treatment [facility] [place] [address] [place], [place] [phone] Carlota Jin MD 1 [facility], [facility] 2 [place] [phone] 01/08/2025 6:45 EDT Treatment [facility] [place] [address] [place], [place] [phone] Carlota Jin MD 1 [facility], [facility] 2 [place] [phone] 01/10/2025 6:45 EDT Treatment [facility] [place] [address] [place], [place] [phone] Carlota Jin MD 1 [facility], [facility] 2 [place] [phone] 01/12/2025 6:45 EDT Treatment [facility] [address] [place], [place] [phone] Carlota Jin MD 1 [facility], [facility] 2 [place] [phone] 01/15/2025 6:45 EDT Treatment [facility] [place] [address] [place], [place] [phone] Carlota Jin MD 1 [facility], [facility] 2 [place] [phone] 01/17/2025 6:45 EDT Treatment [facility] [place] [address] [place], [place] [address] Carlota Jin MD 1 [facility], [facility] 2 [place] [phone] 01/19/2025 6:45 EDT Treatment [facility] [place] [address] [place], [place] [phone] Carlota Jin MD 1 [facility], [facility] 2 [place] [phone] 01/22/2025 6:45 EDT Treatment [facility] [place] [address] [place], [place] [phone] Carlota Jin MD 1 [facility], [facility] 2 [place] [phone] 01/24/2025 6:45 EDT Treatment [facility] [place] [address] [place], [place] [address] Carlota Jin MD 1 [facility], [facility] 2 [place] [phone] 01/26/2025 6:45 EDT Treatment [facility] [place] [address] [place], [place] [phone] Carlota Jin MD 1 [facility], [facility] 2 [place] [phone] 01/29/2025 6:45 EDT Treatment [facility] [place] [address] [place], [place] [phone] Carlota Jin MD 1 [facility], [facility] 2 [place] [phone] 01/31/2025 6:45 EDT Treatment [facility] [place] [address] [place] [address] Carlota Jin MD 1 [facility], [address] [phone] 02/02/2025 6:45 EDT Treatment [facility] [place] [address] [place], [place] [phone] Carlota Jin MD 1 [facility], [address] [phone] 02/05/2025 6:45 EDT Treatment [facility] [place] [address] [place], [place] [phone] Carlota Jin MD 1 [facility], [address] [phone] 02/07/2025 6:45 EDT Treatment [facility] [place] [address] [place], [place] [phone] Carlota Jin MD 1 [facility], [facility] 2 [place] [phone] 02/09/2025 6:45 EDT Treatment [facility] [place] [address] [place], [place] [phone] Carlota Jin MD 1 [facility], [facility] 2 [place] [phone] 02/12/2025 6:45 EDT Treatment [facility] [place] [address] [place], [place] [phone] Carlota Jin MD [address] [phone] 02/14/2025 6:45 EDT Treatment [facility] [place] [address] [place], [place] [phone] Carlota Jin MD [address] [phone] 02/16/2025 6:45 EDT Treatment [facility] [place] [address] [place], [place] [phone] Carlota Jin MD [address] [phone] 02/19/2025 6:45 EDT Treatment [facility] [place] [address] [place], [place] [phone] Carlota Jin MD [address] [phone] 02/21/2025 6:45 EDT Treatment [facility] [place] [address] [place], [place] [phone] Carlota Jin MD [address] [phone] documented as of this encounter Procedures Procedure Name Priority Date/Time Associated Diagnosis Comments HEMODIALYSIS Routine 03/17/2024 17:02 EDT [facility] oral, ONCE IN DIALYSIS, 1 dose, On Wed03/17/24 at 1730, Routine, DialysisIndications:ESRD (end stage renal disease) ([facility]),Secondary hyperparathyroidism ([facility]) Given 03/17/2024 17:55 EDT 2 Tablets epoetin ken (EPOGEN) 20,000 unit/2 mL injection 8,000 Units 8,000 Units, intravenous, ONCE IN DIALYSIS, 1 dose, On Wed03/17/24 at 1730, Routine, DialysisIndications:ESRD (end stage renal disease) ([facility]),Anemia of chronic renal failure, unspecified CKD stage Given 03/17/2024 17:55 EDT 8,000 Units heparin injection 7,000 Units 7,000 Units, intravenous, ONCE IN DIALYSIS, 1 dose, On Wed03/17/24 at 1730, Routine, Dialysis, Now x1 bolus 3400 units to be given at the beginning of dialysis 900 units/hour to be given over the course of dialysis (7000 units total). Stop 1 hour prior to end of treatment. To be administered per Policy [id number].Indications:ESRD (end stage renal disease) ([facility]) Given 03/17/2024 17:55 EDT 7,000 Units LiquaCel liquid protein liquid 30 mL 30 mL, oral, ONCE IN DIALYSIS, 1 dose, On Wed03/17/24 at 1730, Patient's flavor preference: either, RoutineIndications:ESRD (end stage renal disease) ([facility]),Hypoalbuminemia Given 03/17/2024 17:55 EDT 30 mL documented in this encounter Orders Dialysis Count Last Ordered Date First Orde red Date HEMODIALYSIS 1 03/17/2024 documented in this encounter Additional Health Concerns Infection Onset Date Last Indicated Resolved Time COVID-19 Comment:Collected @ [facility]. 03/12/2024 03/13/2024 04/01/2024 22: 15 EDT documented as of this encounter Care Teams Dried Yeast Supervisor Relationship Specialty Start Date End Date Ken Greer MD [address] [facility] [place] [address] PCP - General 07/07/23 documented as of this encounter
--- OUTSIDE RECORDS SUMMARY | 2024-12-05 12:06 | XMS_ITS | Encounter Summary ---
Author Organization [facility] Address [address] [place] [address] Care Team Providers Care Accounts Receivable Specialist Name Role Phone Ken Greer MD Primary Care Provider [phone] Encounter Details Date Type Department Care Team (Late st Contact Info) Description 03/28/2024 Documentation Visit [address] [place] [address] Shelley Eden, RD [address] [place] [address] Social History Tobacco Use Types Packs/Day Years [...] Info) Description 12/06/2024 6:45 EST Treatment [facility] [address] [place], [place] [phone] Carlota Jin MD [address] [place] [address], [facility] 2 [place] [phone] 12/08/2024 6:45 EST Treatment [facility] [address] [place], [place] [id number] Carlota Jin MD [address] [place] [address] 2 [place] [phone] 12/11/2024 6:45 EST Treatment [facility] [address] [place], [place] [id number] Carlota Jin MD [address] [place] [address] 2 [place] [phone] 12/13/2024 6:45 EST Treatment [facility] [address] [place], [place] [phone] Carlota Jin MD 1 [facility], [facility] 2 [place] [phone] 12/15/2024 6:45 EST Treatment [facility] - [place] [address] [place], [place] [phone] Carlota Jin MD 1 [facility], [facility] 2 [place] [phone] 12/18/2024 6:45 EST Treatment [facility] [place] [address] [place] [address] Carlota Jin MD 1 [facility], [facility] 2 [place] [phone] 12/20/2024 6:45 EST Treatment [facility] [place] [address] [place] [address] Carlota Jin MD 1 [facility], [facility] 2 [place] [phone] 12/22/2024 6:45 EST Treatment [facility] - [place] [address] [place], [place] [id number] Carlota Jin MD 1 [facility], [facility] 2 [place] [phone] 12/25/2024 6:45 EST Treatment [facility] - [place] [address] [place], [place] [phone] Carlota Jin MD 1 [facility], [facility] 2 [place] [phone] 12/27/2024 6:45 EST Treatment [facility] [place] [address] [place], [place] [phone] Carlota Jin MD 1 [facility], [facility] 2 [place] [phone] 12/29/2024 6:45 EST Treatment [facility] - [place] [address] [place], [place] [phone] Carlota Jin MD 1 [facility], [facility] 2 [place] [phone] 01/01/2025 6:45 EDT Treatment [facility] [place] [address] [place], [place] [phone] Carlota Jin MD 1 [facility], [facility] 2 [place] [phone] 01/03/2025 6:45 EDT Treatment [facility] - [place] [address] [place], [place] [phone] Carlota Jin MD 1 [facility], [facility] 2 [place] [phone] 01/05/2025 6:45 EDT Treatment [facility] [place] [address] [place], [place] [phone] Carlota Jin MD 1 [facility], [facility] 2 [place] [phone] 01/08/2025 6:45 EDT Treatment [facility] [place] [address] [place], [place] [phone] Carlota Jin MD 1 [facility], [facility] 2 [place] [phone] 01/10/2025 6:45 EDT Treatment [facility] - [place] [address] [place], [place] [phone] Carlota Jin MD 1 [facility], [facility] 2 [place] [phone] 01/12/2025 6:45 EDT Treatment [facility] [place] [address] [place] [address] Carlota Jin MD 1 [facility], [address] [phone] 01/15/2025 6:45 EDT Treatment [facility] [place] [address] [place], [place] [phone] Carlota Jin MD 1 [facility], [address] [phone] 01/17/2025 6:45 EDT Treatment [facility] [place] [address] [place] [address] Carlota Jin MD 1 [facility], [facility] 2 [place] [phone] 01/19/2025 6:45 EDT Treatment [facility] [place] [address] [place], [place] [phone] Carlota Jin MD 1 [facility], [facility] 2 [place] [phone] 01/22/2025 6:45 EDT Treatment [facility] - [place] [address] [place], [place] [address] Carlota Jin MD 1 [facility], [facility] 2 [place] [phone] 01/24/2025 6:45 EDT Treatment [facility] - [place] [address] [place], [place] [address] Carlota Jin MD 1 [facility], [facility] 2 [place] [phone] 01/26/2025 6:45 EDT Treatment [facility] [place] [address] [place], [place] [address] Carlota Jin MD 1 [facility], [address] [phone] 01/29/2025 6:45 EDT Treatment [facility] [place] [address] [place], [place] [address] Carlota Jin MD 1 [facility], [facility] 2 [place] [phone] 01/31/2025 6:45 EDT Treatment [facility] [place] [address] [place], [place] [phone] Carlota Jin MD 1 [facility], [facility] 2 [place] [phone] 02/02/2025 6:45 EDT Treatment [facility] [place] [address] [place], [place] [address] Carlota Jin MD 1 [facility], [address] [phone] 02/05/2025 6:45 EDT Treatment [facility] - [place] [address] [place], [place] [address] [phone] Carlota Jin MD 1 [facility], [address] [phone] 02/07/2025 6:45 EDT Treatment [facility] - [place] [address] [place], [place] [address] Carlota Jin MD 1 [facility], [address] [phone] 02/09/2025 6:45 EDT Treatment [facility] - [place] [address] [place] [address] Carlota Jin MD 1 [facility], [address] [phone] 02/12/2025 6:45 EDT Treatment [facility] [place] [address] [place], [place] [phone] Carlota Jin MD [address] [phone] 02/14/2025 6:45 EDT Treatment [facility] [place] [address] [place], [place] [address] Carlota Jin MD 1 [facility], [address] [phone] 02/16/2025 6:45 EDT Treatment [facility] - [place] [address] [place], [place] [phone] Carlota Jin MD 1 [facility], [facility] 2 [place] [phone] 02/19/2025 6:45 EDT Treatment [facility] - [place] [address] [place], [place] [phone] Carlota Jin MD [address] [place] [address], [address] [phone] 02/21/2025 6:45 EDT Treatment [facility] [place] [address] [place], [place] [phone] Carlota Jin MD [address] [place] [address], [address] [phone] documented as of this encounter Visit Diagnoses Not on filedocumented in this encounter Additional Health Concerns Infection Onset Date Last Indicated Resolved Time COVID-19 Comment:Collected @ [facility]. 03/12/2024 03/13/2024 04/01/2024 22: 15 EDT documented as of this encounter Care Teams Accounts Receivable Specialist Relationship Specialty Start Date End Date [place] [address] PCP - General 07/07/23 documented as of this encounter
--- OUTSIDE RECORDS SUMMARY | 2024-12-05 12:06 | XMS_ITS | Encounter Summary ---
Author Organization [facility] Address [address] [place] [address] Care Team Providers Care Automatic Engraver Name Role Phone Ken Greer MD Primary Care Provider [phone] Reason for Visit * Episode Based Medications (Routine) - New Request Specialty Diagnoses / Procedures Referred By Nader pena Referred To Contact Diagnoses ESRD (end stage renal disease) ([facility]) Carlota Jin MD [address] [place] [phone] Phone: tel: fax: [facility] [place] [place] [address] [place] [address] Phone: tel: fax: Referral ID Status Reason Start Date Expiration Date V isits Requested Visits Authorized [id number] New Request 03/17/2024 1 1 Encounter Details Date Type Department Care Team (Latest Contact Info) Description 03/29/2024 6:45 EDT Treatment [facility] [address] [place], [place] [phone] Carlota Jin MD [address] [place] [phone] ESRD (end stage renal disease) ([facility]) (Primary Dx); Anemia of chronic renal failure, unspecified CKD stage; Hypoalbuminemia; Secondary hyperparathyroidism ([facility]) Social History Tobacco Use Types [...] - Temperature - - Respiratory Rate 16 03/29/2024 1659 EDT Oxygen Saturation - - Inhaled Oxygen Concentration - - Weight 84.2 kg (185 lb 10 oz) 03/29/2024 165 ED T Height - - Body Mass Index 26.63 12/20/2023 2202 EST documented in this encounter [...] Flowsheet Note - Melissa Crespo RN - 03/29/20249 EDT 03/29/24 2100 Post-Hemodialysis Assessment Total Blood Processed (L) 68.19 Liters On Line Clearance: spKt/V 0.95 spKt/V Dialyzer Clearance Lightly streaked Treatment UFR (ml:kg:hr) 9.82 ml:kg:hr Final Critline Profile (%/hr) 0.16 Final Profile Profile A Critline refill Not done Fluid Removed (L) 3 L Post-Dialysis Scale Weight 102.5 kg (225 lb 15.5 oz) Wheelchair Weight 20.8 kg (45 lb 13.7 oz) Prosthesis Weight 0 kg (0 lb) Post-Treatment Weight (kg) 81.7 Treatment Weight Change (kg) 2.5 kg Day Target Weight (kg) 81.7 Post Sitting/Lying BP (!) 195/96 Post Sitting/Lying pulse 69 Temp 36.6 ??C (97.9 ??F) Temp src Temporal Post access assessment AVF/AFG Hemostasis achieved Yes Orientation Alert and Oriented x3 Yes Time Yes Place Yes Person Yes Cooperative Yes Disoriented No Discharge Ambulation Methods Departs via w/c Wrap up items Patient Response to Treatment Tolerated tx. Removed 3000 UF goal. Stable upon DC from unit. No issues during tx, No concerns voiced post tx. Comments 3 Hr Treatment due to Covid Status documented in this encounter Plan of Treatment Upcoming Encounters Date Type Department Care Team (Late st Contact Info) Description 12/06/2024 6:45 EST Treatment [facility] [place] [address] [place] [address] Carlota Jin MD 1 [facility] Level 2 [place] [phone] 12/08/2024 6:45 EST Treatment [facility] [address] [place] [phone] Carlota Jin MD 1 [facility], [facility] 2 [place] [phone] 12/11/2024 6:45 EST Treatment [facility] - [place] [address] [place], [place] [phone] Carlota Jin MD 1 [facility], [facility] 2 [place] [phone] 12/13/2024 6:45 EST Treatment [facility] - [place] [address] [place], [place] [phone] Carlota Jin MD 1 [facility], [facility] 2 [place] [phone] 12/15/2024 6:45 EST Treatment [facility] - [place] [address] [place] [address] Carlota Jin MD 1 [facility], [facility] 2 [place] [phone] 12/18/2024 6:45 EST Treatment [facility] [place] [address] [place] [address] Carlota Jin MD 1 [facility], [facility] 2 [place] [phone] 12/20/2024 6:45 EST Treatment [facility] [place] [address] [place], [place] [phone] Carlota Jin MD 1 [facility], [facility] 2 [place] [phone] 12/22/2024 6:45 EST Treatment [facility] - [place] [address] [place], [place] [phone] Carlota Jin MD 1 [facility], [facility] 2 [place] [phone] 12/25/2024 6:45 EST Treatment [facility] - [place] [address] [place], [place] [phone] Carlota Jin MD 1 [facility], [facility] 2 [place] [phone] 12/27/2024 6:45 EST Treatment [facility] [place] [address] [place], [place] [phone] Carlota Jin MD [address] [place] [address], [facility] 2 [place] [phone] 12/29/2024 6:45 EST Treatment [facility] [place] [address] [place], [place] [phone] Carlota Jin MD 1 [facility], [facility] 2 [place] [phone] 01/01/2025 6:45 EDT Treatment [facility] [place] [address] [place], [place] [phone] Carlota Jin MD 1 [facility], [facility] 2 [place] [phone] 01/03/2025 6:45 EDT Treatment [facility] [address] [place], [place] [phone] Carlota Jin MD 1 [facility], [facility] 2 [place] [phone] 01/05/2025 6:45 EDT Treatment [facility] [place] [address] [place], [place] [phone] Carlota Jin MD 1 [facility], [facility] 2 [place] [phone] 01/08/2025 6:45 EDT Treatment [facility] [place] [address] [place], [place] [phone] Carlota Jin MD 1 [facility], [facility] 2 [place] [phone] 01/10/2025 6:45 EDT Treatment [facility] [place] [address] [place], [place] [phone] Carlota Jin MD 1 [facility], [facility] 2 [place] [phone] 01/12/2025 6:45 EDT Treatment [facility] - [place] [address] [place], [place] [phone] Carlota Jin MD 1 [facility], [facility] 2 [place] [phone] 01/15/2025 6:45 EDT Treatment [facility] [place] [address] [place], [place] [phone] Carlota Jin MD 1 [facility], [facility] 2 [place] [phone] 01/17/2025 6:45 EDT Treatment [facility] - [place] [address] [place], [place] [phone] Carlota Jin MD 1 [facility], [facility] 2 [place] [phone] 01/19/2025 6:45 EDT Treatment [facility] - [place] [address] [place], [place] [phone] Carlota Jin MD 1 [facility], [facility] 2 [place] [phone] 01/22/2025 6:45 EDT Treatment [facility] - [place] [address] [place], [place] [phone] Carlota Jin MD 1 [facility], [facility] 2 [place] [phone] 01/24/2025 6:45 EDT Treatment [facility] - [place] [address] [place], [place] [address] Carlota Jin MD 1 [facility], [facility] 2 [place] [phone] 01/26/2025 6:45 EDT Treatment [facility] [place] [address] [place], [place] [phone] Carlota Jin MD 1 [facility], [facility] 2 [place] [phone] 01/29/2025 6:45 EDT Treatment [facility] [place] [address] [place] [address] Carlota Jin MD 1 [facility], [facility] 2 [place] [phone] 01/31/2025 6:45 EDT Treatment [facility] [place] [address] [place] [address] Carlota Jin MD 1 [facility], [address] [phone] 02/02/2025 6:45 EDT Treatment [facility] [place] [address] [place], [place] [phone] Carlota Jin MD 1 [facility], [address] [phone] 02/05/2025 6:45 EDT Treatment [facility] [place] [address] [place], [place] [phone] Carlota Jin MD 1 [facility], [address] [phone] 02/07/2025 6:45 EDT Treatment [facility] [place] [address] [place], [place] [phone] Carlota Jin MD 1 [facility], [address] [phone] 02/09/2025 6:45 EDT Treatment [facility] - [place] [address] [place], [place] [phone] Carlota Jin MD 1 [facility], [facility] 2 [place] [phone] 02/12/2025 6:45 EDT Treatment [facility] [place] [address] [place], [place] [phone] Carlota Jin MD 1 [facility], [address] [phone] 02/14/2025 6:45 EDT Treatment [facility] [place] [address] [place], [place] [phone] Carlota Jin MD 1 [facility], [address] [phone] 02/16/2025 6:45 EDT Treatment [facility] [place] [address] [place], [place] [phone] Carlota Jin MD [address] [phone] 02/19/2025 6:45 EDT Treatment [facility] - [place] [address] [place], [place] [phone] Carlota Jin MD 1 [facility], [address] [phone] 02/21/2025 6:45 EDT Treatment [facility] [place] [address] [place], [place] [phone] Carlota Jin MD [address] [phone] documented as of this encounter Procedures Procedure Name Priority Date/Time Associated Diagnosis Comments COMPLETE BLOOD COUNT Routine 03/29/2024 17:52 EDT ESRD (end stage renal disease) ([facility]) HEMODIALYSIS Routine 03/29/2024 16:59 EDT ESRD (end stage renal disease) ([facility]) documented in this encounter Results * (ABNORMAL) COMPLETE BLOOD COUNT (03/29/2024 17:52 EDT) WBC 8.95 4.00 - 10.40 K/cmm 03/30/2024 22:17 [facility] RBC 2.89(L) 4.36 - 5.78 M/cmm 03/30/2024 22:17 [facility] Hemoglobin 8.5(L) 13.8 - 17.3 g/dL 03/30/2024 22:17 [facility] HCT 26.9(L) 39.5 - 50.2 % 03/30/2024 22:17 [facility] MCV 93 81 - 95 fL 03/30/2024 22:17 [facility] MCH 29.4 27.6 - 33.0 pg 03/30/2024 22:17 [facility] MCHC 31.6(L) 32.8 - 36.4 g/dL 03/30/2024 22:17 [facility] RDW-CV 17.0(H) <14.2 % 03/30/2024 22:17 [facility] RDW-SD 57.4(H) <46.0 fl 03/30/2024 22:17 [facility] PLT 313 141 - 377 K/cmm 03/30/2024 22:17 [facility] MPV 11.9 9.5 - 12.7 fL 03/30/2024 22:17 [facility] Blood VENOUS BLOOD / Unknown Venipuncture / Unknown 03/29/2024 17:52 EDT 03/29/2024 17:52 EDT Skye Gomez NP HEMATOLOGY & PF4 ORDERABLES Final Result [facility] [address] [place] [address] documented in this encounter Visit Diagnoses Diagnosis ESRD (end stage renal disease) ([facility])- Primary End stage renal disease Anemia of chronic renal failure, unspecified CKD stage Hypoalbuminemia Other disorders of plasma protein metabolism Secondary hyperparathyroidism ([facility]) Secondary hyperparathyroidism (of renal origin) documented in this encounter Administered Medications Inactive Administered Medications - up to 3 most recent administrations Medication Order MAR Action Action Date Dose Rate Site calcium carbonate (TUMS) tablet 500 mg (200 mg elemental calcium) 2 Tablet 2 Tablet, oral, ONCE IN DIALYSIS, 1 dose, On Wed03/29/24 at 1715, Routine, DialysisIndications:ESRD (end stage renal disease) ([facility]),Secondary hyperparathyroidism ([facility]) Given 03/29/2024 17:37 EDT 2 Tablets epoetin ken (EPOGEN) 20,000 unit/2 mL injection 8,000 Units 8,000 Units, intravenous, ONCE IN DIALYSIS, 1 dose, On 03/29/24 at 1715, Routine, DialysisIndications:ESRD (end stage renal disease) ([facility]),Anemia of chronic renal failure, unspecified CKD stage Given 03/29/2024 17:37 EDT 8,000 Units heparin injection 7,000 Units 7,000 Units, intravenous, ONCE IN DIALYSIS, 1 dose, On 03/29/24 at 1715, Routine, Dialysis, Now x1 bolus 3400 units to be given at the beginning of dialysis 900 units/hour to be given over the course of dialysis (7000 units total). Stop 1 hour prior to end of treatment. To be administered per Policy [id number].Indications:ESRD (end stage renal disease) ([facility]) Given 03/29/2024 17:48 EDT 7,000 Units iron sucrose (VENOFER) injection 200 mg 200 mg, intravenous, ONCE IN DIALYSIS, 1 dose, On 03/29/24 at 1715, Routine, DialysisIndications:ESRD (end stage renal disease) ([facility]) Given 03/29/2024 18:07 EDT 200 mg LiquaCel liquid protein liquid 30 mL 30 mL, oral, ONCE IN DIALYSIS, 1 dose, On 03/29/24 at 1715, Patient's flavor preference: either, RoutineIndications:ESRD (end stage renal disease) ([facility]),Hypoalbuminemia Given 03/29/2024 17:37 EDT 30 mL documented in this encounter Orders Dialysis Count Last Ordered Date First Orde red Date HEMODIALYSIS 1 03/29/2024 documented in this encounter Additional Health Concerns Infection Onset Date Last Indicated Resolved Time COVID-19 Comment:Collected @ [facility]. 03/12/2024 03/13/2024 04/01/2024 22: 15 EDT documented as of this encounter Care Teams Automatic Engraver Relationship Specialty Start Date End Date Ken Greer MD [facility] [place] [address] PCP - General 07/07/23 documented as of this encounter
--- OUTSIDE RECORDS SUMMARY | 2024-12-05 12:07 | XMS_ITS | Encounter Summary ---
Author Organization [facility] Address [address] [place] [address] Care Team Providers Care Sales Service Route Manager Name Role Phone Ken Greer MD Primary Care Provider [phone] Encounter Details Date Type Department Care Team (Late st Contact Info) Description 03/03/2024 Orders Only [facility] [address] [place], [place] [address] Yoanna Degroot, VIDYA Social History Tobacco Use [...] of Assessment Author No 12/20/2023 14:00 Angélica Laoz RN * Are you blind or do [...] Info) Description 12/06/2024 6:45 EST Treatment [facility] [place] [address] [place], [place] [id number] Carlota Jin MD 1 [facility], [facility] [address] [place] [phone] 12/08/2024 6:45 EST Treatment [facility] [place] [address] [place], [place] [id number] Carlota Jin MD 1 [facility] 2 [place] [phone] 12/11/2024 6:45 EST Treatment [facility] [place] [address] [place], [place] [id number] Carlota Jin MD 1 [facility], [facility] 2 [place] [phone] 12/13/2024 6:45 EST Treatment [facility] [address] [place], [place] [id number] Carlota Jin MD 1 [facility], [facility] [address] [place] [phone] 12/15/2024 6:45 EST Treatment [facility] [place] [address] [place], [place] [id number] Carlota Jin MD 1 [facility], [facility] [address] [place] [phone] 12/18/2024 6:45 EST Treatment [facility] [place] [address] [place], [place] [id number] Carlota Jin MD 1 [facility], [facility] 2 [place] [phone] 12/20/2024 6:45 EST Treatment [facility] [place] [address] [place], [place] [id number] Carlota Jin MD 1 [facility], [facility] 2 [place] [phone] 12/22/2024 6:45 EST Treatment [facility] [address] [place], [place] [id number] Carlota Jin MD 1 [facility], [facility] [address] [place] [phone] 12/25/2024 6:45 EST Treatment [facility] [address] [place], [place] [id number] Carlota Jin MD 1 [facility], [facility] 2 [place] [phone] 12/27/2024 6:45 EST Treatment [facility] [place] [address] [place], [place] [id number] Carlota Jin MD 1 [facility], [facility] [address] [place] [phone] 12/29/2024 6:45 EST Treatment [facility] [place] [address] [place], [place] [id number] Carlota Jin MD 1 [facility], [address] [phone] 01/01/2025 6:45 EDT Treatment [facility] [place] [address] [place], [place] [id number] Carlota Jin MD 1 [facility], [address] [phone] 01/03/2025 6:45 EDT Treatment [facility] [place] [address] [place], [place] [id number] Carlota Jin MD 1 [facility], [address] [phone] 01/05/2025 6:45 EDT Treatment [facility] [place] [address] [place], [place] [id number] Carlota Jin MD [address] [place] [address], [facility] 2 [place] [phone] 01/08/2025 6:45 EDT Treatment [facility] [place] [address] [place], [place] [id number] Carlota Jin MD 1 [facility], Level [address] [place] [phone] 01/10/2025 6:45 EDT Treatment [facility] [place] [address] [place], [place] [address] Carlota Jin MD 1 [facility], [facility] 2 [place] [phone] 01/12/2025 6:45 EDT Treatment [facility] [place] [address] [place], [place] [id number] Carlota Jin MD 1 [facility], [facility] 2 [place] [phone] 01/15/2025 6:45 EDT Treatment [facility] [place] [address] [place], [place] [id number] Carlota Jin MD 1 [facility], [facility] 2 [place] [phone] 01/17/2025 6:45 EDT Treatment [facility] [address] [place], [place] [id number] Carlota Jin MD 1 [facility], [facility] 2 [place] [phone] 01/19/2025 6:45 EDT Treatment [facility] [address] [place], [place] [id number] Carlota Jin MD 1 [facility], [facility] 2 [place] [phone] 01/22/2025 6:45 EDT Treatment [facility] [place] [address] [place], [place] [id number] Carlota Jin MD 1 [facility], [facility] 2 [place] [phone] 01/24/2025 6:45 EDT Treatment [facility] [place] [address] [place], [place] [id number] Carlota Jin MD 1 [facility], [facility] 2 [place] [phone] 01/26/2025 6:45 EDT Treatment [facility] [place] [address] [place], [place] [id number] Carlota Jin MD 1 [facility], [facility] 2 [place] [phone] 01/29/2025 6:45 EDT Treatment [facility] [place] [address] [place], [place] [id number] Carlota Jin MD 1 [facility], [facility] 2 [place] [phone] 01/31/2025 6:45 EDT Treatment [facility] [place] [address] [place], [place] [id number] Carlota Jin MD 1 [facility], [facility] 2 [place] [phone] 02/02/2025 6:45 EDT Treatment [facility] [place] [address] [place], [place] [id number] Carlota Jin MD 1 [facility], [facility] 2 [place] [phone] 02/05/2025 6:45 EDT Treatment [facility] [place] [address] [place], [place] [id number] Carlota Jin MD 1 [facility], [facility] 2 [place] [phone] 02/07/2025 6:45 EDT Treatment [facility] [place] [address] [place] [address] Carlota Jin MD 1 [facility], [address] [phone] 02/09/2025 6:45 EDT Treatment [facility] [place] [address] [place], [place] [id number] Carlota Jin MD 1 [facility], [address] [phone] 02/12/2025 6:45 EDT Treatment [facility] [place] [address] [place] [address] Carlota Jin MD 1 [facility], [facility] 2 [place] [phone] 02/14/2025 6:45 EDT Treatment [facility] [place] [address] [place], [place] [id number] Carlota Jin MD 1 [facility], [facility] 2 [place] [phone] 02/16/2025 6:45 EDT Treatment [facility] [address] [place], [place] [id number] Carlota Jin MD 1 [facility], [facility] 2 [place] [phone] 02/19/2025 6:45 EDT Treatment [facility] [address] [place], [place] [id number] Carlota Jin MD [address] [place] [address], [facility] 2 [place] [phone] 02/21/2025 6:45 EDT Treatment [facility] [address] [place], [place] [id number] Carlota Jin MD [address] [place] [address], [facility] [address] [place] [phone] documented as of this encounter Visit Diagnoses Not on filedocumented in this encounter Care Teams Sales Service Route Manager Relationship Specialty Start Date End Date [place] [address] PCP - General 07/07/23 documented as of this encounter
--- OUTSIDE RECORDS SUMMARY | 2024-12-05 12:07 | XMS_ITS | Encounter Summary ---
Author Organization [facility] Address [address] [place] [address] Care Team Providers Care Latex Thread Machine Operator Name Role Phone Ken Greer MD Primary Care Provider [phone] Encounter Details Date Type Department Care Team (Late st Contact Info) Description 02/29/2024 Orders Only [facility] [address] [place], [place] [address] Yoanna Degroot, VIDYA Social History Tobacco Use [...] Contact Info) Description 12/06/2024 6:45 EST Treatment [facility] [place] [address] [place], [place] [id number] Carlota Jin MD 1 [facility], [facility] 2 [place] [phone] 12/08/2024 6:45 EST Treatment [facility] [place] [address] [place], [place] [id number] Carlota Jin MD 1 [facility] 2 [place] [phone] 12/11/2024 6:45 EST Treatment [facility] [place] [address] [place], [place] [id number] Carlota Jin MD 1 [facility], [facility] 2 [place] [phone] 12/13/2024 6:45 EST Treatment [facility] [address] [place], [place] [id number] Carlota Jin MD 1 [facility], [facility] 2 [place] [phone] 12/15/2024 6:45 EST Treatment [facility] [place] [address] [place], [place] [id number] Carlota Jin MD 1 [facility], [facility] 2 [place] [phone] 12/18/2024 6:45 EST Treatment [facility] [place] [address] [place], [place] [id number] Carlota Jin MD 1 [facility], [facility] 2 [place] [phone] 12/20/2024 6:45 EST Treatment [facility] [place] [address] [place], [place] [id number] Carlota Jin MD 1 [facility], [facility] 2 [place] [phone] 12/22/2024 6:45 EST Treatment [facility] [address] [place], [place] [id number] Carlota Jin MD 1 [facility], [facility] 2 [place] [phone] 12/25/2024 6:45 EST Treatment [facility] [address] [place], [place] [id number] Carlota Jin MD 1 [facility], [facility] 2 [place] [phone] 12/27/2024 6:45 EST Treatment [facility] [place] [address] [place], [place] [id number] Carlota Jin MD 1 [facility], [facility] 2 [place] [phone] 12/29/2024 6:45 EST Treatment [facility] [place] [address] [place], [place] [id number] Carlota Jin MD 1 [facility], [address] [phone] 01/01/2025 6:45 EDT Treatment [facility] [place] [address] [place], [place] [id number] Carlota Jin MD 1 [facility], [address] [phone] 01/03/2025 6:45 EDT Treatment [facility] [place] [address] [place], [place] [id number] Carlota Jin MD 1 [facility], [address] [phone] 01/05/2025 6:45 EDT Treatment [facility] [place] [address] [place], [place] [id number] Carlota Jin MD [address] [place] [address], [facility] 2 [place] [phone] 01/08/2025 6:45 EDT Treatment [facility] [place] [address] [place], [place] [id number] Carlota Jin MD 1 [facility], Level [address] [place] [phone] 01/10/2025 6:45 EDT Treatment [facility] [place] [address] [place], [place] [address] Carlota Jin MD 1 [facility], [facility] 2 [place] [phone] 01/12/2025 6:45 EDT Treatment [facility] [place] [address] [place], [place] [id number] Carlota Jin MD 1 [facility], [facility] 2 [place] [phone] 01/15/2025 6:45 EDT Treatment [facility] [place] [address] [place], [place] [id number] Carlota Jin MD 1 [facility], [facility] 2 [place] [phone] 01/17/2025 6:45 EDT Treatment [facility] [address] [place], [place] [id number] Carlota Jin MD 1 [facility], [facility] 2 [place] [phone] 01/19/2025 6:45 EDT Treatment [facility] [address] [place], [place] [id number] Carlota Jin MD 1 [facility], [facility] 2 [place] [phone] 01/22/2025 6:45 EDT Treatment [facility] [place] [address] [place], [place] [id number] Carlota Jin MD 1 [facility], [facility] 2 [place] [phone] 01/24/2025 6:45 EDT Treatment [facility] [place] [address] [place], [place] [id number] Carlota Jin MD 1 [facility], [facility] 2 [place] [phone] 01/26/2025 6:45 EDT Treatment [facility] [place] [address] [place], [place] [id number] Carlota Jin MD 1 [facility], [facility] 2 [place] [phone] 01/29/2025 6:45 EDT Treatment [facility] [place] [address] [place], [place] [id number] Carlota Jin MD 1 [facility], [facility] 2 [place] [phone] 01/31/2025 6:45 EDT Treatment [facility] [place] [address] [place], [place] [id number] Carlota Jin MD 1 [facility], [facility] 2 [place] [phone] 02/02/2025 6:45 EDT Treatment [facility] [place] [address] [place], [place] [id number] Carlota Jin MD 1 [facility], [facility] 2 [place] [phone] 02/05/2025 6:45 EDT Treatment [facility] [place] [address] [place], [place] [id number] Carlota Jin MD 1 [facility], [facility] 2 [place] [phone] 02/07/2025 6:45 EDT Treatment [facility] [place] [address] [place] [address] Carlota Jin MD 1 [facility], [address] [phone] 02/09/2025 6:45 EDT Treatment [facility] [place] [address] [place], [place] [id number] Carlota Jin MD 1 [facility], [address] [phone] 02/12/2025 6:45 EDT Treatment [facility] [place] [address] [place] [address] Carl[address] Jin MD 1 [facility], [facility] 2 [place] [phone] 02/14/2025 6:45 EDT Treatment [facility] [place] [address] [place], [place] [id number] Carlota Jin MD 1 [facility], [facility] 2 [place] [phone] 02/16/2025 6:45 EDT Treatment [facility] [address] [place], [place] [id number] Carlota Jin MD 1 [facility], [facility] 2 [place] [phone] 02/19/2025 6:45 EDT Treatment [facility] [address] [place], [place] [id number] Carlota Jin MD [address] [place] [address], [facility] [address] [place] [phone] 02/21/2025 6:45 EDT Treatment [facility] [address] [place], [place] [id number] Carlota Jin MD [address] [place] [address], [facility] [address] [place] [phone] documented as of this encounter Visit Diagnoses Not on filedocumented in this encounter Care Teams Latex Thread Machine Operator Relationship Specialty Start Date End [place] [address] PCP - General 07/07/23 documented as of this encounter
--- OUTSIDE RECORDS SUMMARY | 2024-12-05 12:07 | XMS_ITS | Encounter Summary ---
Author Organization [facility] Address [address] [place] [address] Care Team Providers Care Remelt Pan Tank Operator Name Role Phone eKn Greer MD Primary Care Provider Encounter Details Date Type Department Care Team (Late st Contact Info) Description 02/25/2024 Documentation Visit [address] [place], [place] [id number] Marcela Cox, VIDYA Social History Tobacco Use [...] Progress Notes * Marcela Cox RN - 02/25/2024 0955 EDT 02/25/24 14:22 [facility] MEDICATION RECONCILIATION Medication review of home medications (prescriptions, [id number], herbals, vitamin/mineral/dietary (nutritional) supplements, medical marijuana, and recreational) was completed through: Patient hospital discharge medication reconciliation list reviewed with patient/caregiver. Current Medications Current Outpatient Medications Medication acetaminophen (TYLENOL) 325 mg tablet amLODIPine (NORVASC) 10 mg tablet apixaban (ELIQUIS) 5 mg tablet atorvastatin (LIPITOR) 40 mg tablet calcium carbonate (TUMS) 200 mg calcium (500 mg) tablet,chewable carvediloL (COREG) 12.5 mg tablet cholecalciferol, Vitamin D3, 25 mcg (1,000 unit) tablet dalteparin (FRAGMIN) 5,000 anti-Xa unit/0.2 mL injection dilTIAZem (CARDIZEM CD) 120 mg capsule DULoxetine (CYMBALTA) 20 mg delayed release capsule famotidine (PEPCID) 40 mg tablet FLOVENT HFA 110 mcg/actuation inhaler insulin aspart U-100 (NOVOLOG FLEXPEN) 100 unit/mL (3 mL) injectable pen insulin glargine 100 unit/mL (3 mL) injection pen insulin lispro (HUMALOG) 100 unit/mL vial insulin pen needles 32G x 5/32 LEVEMIR FLEXPEN 100 unit/mL (3 mL) injectable pen multivitamin (NEPHROVITE) 0.8 mg tablet nortriptyline (PAMELOR) 25 mg capsule oxyCODONE (ROXICODONE) 5 mg immediate release tablet oxyCODONE-acetaminophen (PERCOCET) 5-325 mg per tablet pantoprazole (PROTONIX) 40 mg tablet polyethylene glycol 3350 (MIRALAX) 17 gram packet pregabalin (LYRICA) 100 mg capsule SANTYL ointment sevelamer hydrochloride (RENAGEL) 800 mg tablet sildenafil citrate (VIAGRA) 100 mg tablet tiZANidine (ZANAFLEX) 4 mg tablet No current facility-administered medications for this visit. Marcela Cox RN documented in this encounter Plan of Treatment Upcoming Encounters Date Type Department Care Team (Late st Contact Info) Description 12/06/2024 6:45 EST Treatment [facility] [address] [place], [place] [phone] Carlota Jin MD 1 [facility], [facility] [address] [place] [phone] 12/08/2024 6:45 EST Treatment [facility] [address] [place], [place] [phone] Carlota Jin MD 1 [facility], [facility] [address] [place] [phone] 12/11/2024 6:45 EST Treatment [facility] [address] [place], [place] [phone] Carlota Jin MD 1 [facility] [address] [place] [phone] 12/13/2024 6:45 EST Treatment [facility] [address] [place], [place] [phone] Carlota Jin MD 1 [facility], Level [address] [place] [phone] 12/15/2024 6:45 EST Treatment [facility] [address] [place], [place] [address] Carlota Jin MD 1 [facility], [facility] [address] [place] [phone] 12/18/2024 6:45 EST Treatment [facility] [address] [place], [place] [phone] Carlota Jin MD 1 [facility], [facility] [address] [place] [phone] 12/20/2024 6:45 EST Treatment [facility] [address] [place], [place] [phone] Carlota Jin MD 1 [facility], [facility] [address] [place] [phone] 12/22/2024 6:45 EST Treatment [facility] [address] [place] [address] Carlota Jin MD 1 [facility], [facility] [address] [place] [phone] 12/25/2024 6:45 EST Treatment [facility] [address] [place], [place] [phone] Carlota Jin MD 1 [facility], [facility] [address] [place] [phone] 12/27/2024 6:45 EST Treatment [facility] [address] [place], [place] [phone] Carlota Jin MD 1 [facility], [facility] [address] [place] [phone] 12/29/2024 6:45 EST Treatment [facility] [address] [place], [place] [phone] Carlota Jin MD 1 [facility], [facility] [address] [place] [phone] 01/01/2025 6:45 EDT Treatment [facility] [address] [place], [place] [phone] Carlota Jin MD 1 [facility], [facility] [address] [place] [phone] 01/03/2025 6:45 EDT Treatment [facility] [address] [place], [place] [phone] Carlota Jin MD 1 [facility], [facility] [address] [place] [phone] 01/05/2025 6:45 EDT Treatment [facility] [address] [place], [place] [phone] Carlota Jin MD 1 [facility], [facility] [address] [place] [phone] 01/08/2025 6:45 EDT Treatment [facility] [address] [place], [place] [phone] Carlota Jin MD 1 [facility], [facility] [address] [place] [phone] 01/10/2025 6:45 EDT Treatment [facility] [address] [place], [place] [address] Carlota Jin MD 1 [facility], [facility] [address] [place] [phone] 01/12/2025 6:45 EDT Treatment [facility] [address] [place], [place] [phone] Carlota Jin MD 1 [facility], [facility] [address] [place] [phone] 01/15/2025 6:45 EDT Treatment [facility] [address] [place] [address] Carlota Jin MD 1 [facility], [facility] [address] [place] [phone] 01/17/2025 6:45 EDT Treatment [facility] [address] [place], [place] [phone] Carlota Jin MD 1 [facility], [facility] [address] [place] [phone] 01/19/2025 6:45 EDT Treatment [facility] [address] [place], [place] [phone] Carlota Jin MD 1 [facility], [facility] [address] [place] [phone] 01/22/2025 6:45 EDT Treatment [facility] [address] [place], [place] [phone] Carloat Jin MD 1 [facility], [facility] [address] [place] [phone] 01/24/2025 6:45 EDT Treatment [facility] [address] [place], [place] [phone] Carlota Jin MD 1 [facility], [facility] [address] [place] [phone] 01/26/2025 6:45 EDT Treatment [facility] [address] [place] [address] Carlota Jin MD 1 [facility], [address] [phone] 01/29/2025 6:45 EDT Treatment [facility] [address] [place], [place] [phone] Carlota Jin MD 1 [facility], [facility] [address] [place] [phone] 01/31/2025 6:45 EDT Treatment [facility] [address] [place], [place] [phone] Carlota Jin MD 1 [facility], [facility] [address] [place] [phone] 02/02/2025 6:45 EDT Treatment [facility] [address] [place] [address] Carlota Jin MD 1 [facility], [facility] [address] [place] [phone] 02/05/2025 6:45 EDT Treatment [facility] [address] [place] [address] Carlota Jin MD 1 [facility], [facility] [address] [place] [phone] 02/07/2025 6:45 EDT Treatment [facility] [address] [place] [address] Carlota Jin MD 1 [facility], [address] [phone] 02/09/2025 6:45 EDT Treatment [facility] [address] [place] [address] Carlota Jin MD 1 [facility], [address] [phone] 02/12/2025 6:45 EDT Treatment [facility] [address] [place] [address] Carlota Jin MD 1 [facility], [facility] [address] [place] [phone] 02/14/2025 6:45 EDT Treatment [facility] [address] [place], [place] [phone] Carlota Jin MD 1 [facility], [facility] [address] [place] [phone] 02/16/2025 6:45 EDT Treatment [facility] [address] [place], [place] [phone] Carlota Jin MD 1 [facility], [facility] [address] [place] [phone] 02/19/2025 6:45 EDT Treatment [facility] [address] [place], [place] [phone] Carlota Jin MD [address] [place] [address], [facility] [address] [place] [phone] 02/21/2025 6:45 EDT Treatment [facility] [address] [place], [place] [phone] Carlota Jin MD [address] [place] [address], [facility] [address] [place] [phone] documented as of this encounter Visit Diagnoses Not on filedocumented in this encounter Historical Medications * This list may reflect changes made after this encounter. tiZANidine (ZANAFLEX) 4 mg tablet Take 1 Tablet by mouth every 8 hours as needed. pantoprazole (PROTONIX) 40 mg tablet Take 1 Tablet by mouth daily. insulin glargine 100 unit/mL (3 mL) injection pen Inject 10 Units into the skin 2 times daily. 10 u after dialysis around 11am and 10 u at bedtime, around 10 pm nortriptyline (PAMELOR) 25 mg capsule Take 1 Capsule by mouth 3 times daily. 4 multivitamin (NEPHROVITE) 0.8 mg tablet Take 1 Tablet by mouth at bedtime. 4 insulin lispro (HUMALOG) 100 unit/mL vial Inject into the skin 3 times daily before meals. 0-8 units subcutaneous q4hrs 5 dalteparin (FRAGMIN) 5,000 anti-Xa unit/0.2 mL injection Inject 0.2 mL into the skin daily. 1 ml subcutaneous q8 hrs for 26 days 4 added in this encounter Care Teams Remelt Pan Tank Operator Relationship Specialty Start Date End Date Ken Greer MD [facility] [place] [address] PCP - General 07/07/23 documented as of this encounter
--- OUTSIDE RECORDS SUMMARY | 2024-12-05 12:07 | XMS_ITS | Encounter Summary ---
Author Organization [facility] Address [address] [place] [address] Care Team Providers Care Sales Service Manager Name Role Phone Ken Greer MD Primary Care Provider [phone] Encounter Details Date Type Department Care Team (Latest Contact Info) Description 03/03/2024 6:45 EDT Treatment [facility] [address] [place], [place] [id number] Carlota Jin MD 1 [facility], Level 2 [place] [phone] ESRD (end stage renal disease) ([facility]) (Primary Dx); Anemia of chronic renal failure, unspecified CKD stage; Hypoalbuminemia; Secondary hyperparathyroidism ([facility]) Social History Tobacco Use Types Packs/Day [...] - Temperature - - Respiratory Rate 16 03/03/2024 0639 EDT Oxygen Saturation - - Inhaled Oxygen Concentration - - Weight 84.8 kg (186 lb 15.2 oz) 03/03/2024 0642 EDT Height - - Body Mass Index 26.82 12/20/2023 2202 EST documented in this encounter [...] Flowsheet Note - Marcela Cox RN - 03/03/2024 1406 EDT 03/03/24 1055 Post-Hemodialysis Assessment Total Blood Processed (L) 89.57 Liters On Line Clearance: spKt/V 1.7 spKt/V Dialyzer Clearance Lightly streaked Treatment UFR (ml:kg:hr) 5.42 ml:kg:hr Final Critline Profile (%/hr) -1.15 Final Profile Profile A Critline refill Not done Fluid Removed (L) 2 L Post-Dialysis Scale Weight 103.8 kg (228 lb 13.4 oz) Wheelchair Weight 20.8 kg (45 lb 13.7 oz) Prosthesis Weight 0 kg (0 lb) Post-Treatment Weight (kg) 83 Treatment Weight Change (kg) 1.8 kg Day Target Weight (kg) 83.3 Post Sitting/Lying BP (!) 180/92 Post Sitting/Lying pulse 63 Temp 35.8 ??C (96.4 ??F) Temp src Temporal Minutes Short -240 Post access assessment Bruit present: Yes Thrill Present AVF/AFG Hemostasis achieved Yes Note Tech held for 10mins on artieral site and 15mins on venous due to rebleed Orientation Alert and Oriented x3 Yes Time Yes Place Yes Person Yes Cooperative Yes Disoriented No Discharge Ambulation Methods Departs via w/c Wrap up items Patient Response to Treatment Tolerated tx well. Removed 2L UF goal without difficulty. Comments No issues during tx, no concerns voiced post tx. documented in this encounter Plan of Treatment Upcoming Encounters Date Type Department Care Team (Late st Contact Info) Description 12/06/2024 6:45 EST Treatment [facility] Dialysi [facility] [address] [place], [place] [id number] Carlota Jin MD [address] [place] [phone] 12/08/2024 6:45 EST Treatment [facility] [address] [place], [place] [id number] Carlota Jin MD [address] [place] [phone] 12/11/2024 6:45 EST Treatment [facility] Dialysi [facility] [address] [place] [address] Carlota Jin MD [address] [place] [phone] 12/13/2024 6:45 EST Treatment [facility] Dialysi - [place] [address] [place], [place] [id number] Carlota Jin MD 1 [facility], [facility] [address] [place] [phone] 12/15/2024 6:45 EST Treatment [facility] Dialysi - [place] [address] [place], [place] [id number] Carlota Jin MD 1 [facility], [facility] [address] [place] [phone] 12/18/2024 6:45 EST Treatment [facility] Dialysi - [place] [address] [place], [place] [id number] Carlota Jin MD 1 [facility], [facility] [address] [place] [phone] 12/20/2024 6:45 EST Treatment [facility] Dialysi - [place] [address] [place], [place] [id number] Carlota Jin MD 1 [facility], [facility] 2 [place] [phone] 12/22/2024 6:45 EST Treatment [facility] Dialysi - [place] [address] [place], [place] [id number] Cralota Jin MD 1 [facility], [facility] [address] [place] [phone] 12/25/2024 6:45 EST Treatment [facility] Dialysi - [place] [address] [place], [place] [id number] Carlota Jin MD 1 [facility], [facility] [address] [place] [phone] 12/27/2024 6:45 EST Treatment [facility] Dialysi - [place] [address] [place], [place] [address] Carlota Jin MD 1 [facility], [facility] [address] [place] [phone] 12/29/2024 6:45 EST Treatment [facility] Dialysi - [place] [address] [place], [place] [id number] Carlota Jin MD 1 [facility], [address] [phone] 01/01/2025 6:45 EDT Treatment [facility] Dialysi - [place] [address] [place], [place] [id number] Carlota Jin MD 1 [facility], [address] [phone] 01/03/2025 6:45 EDT Treatment [facility] Dialysi - [place] [address] [place] [address] Carlota Jin MD 1 [facility], [facility] 2 [place] [phone] 01/05/2025 6:45 EDT Treatment [facility] Dialysi [facility] [address] [place], [place] [id number] Carlota Jin MD 1 [facility], [facility] [address] [place] [phone] 01/08/2025 6:45 EDT Treatment [facility] Dialysi - [place] [address] [place], [place] [id number] Carlota Jin MD 1 [facility], [facility] 2 [place] [phone] 01/10/2025 6:45 EDT Treatment [facility] Dialysi - [place] [address] [place], [place] [id number] Carlota Jin MD [address] [place] [address], [address] [phone] 01/12/2025 6:45 EDT Treatment [facility] Dialysi - [place] [address] [place], [place] [id number] Carlota Jin MD [address] [place] [address], [address] [phone] 01/15/2025 6:45 EDT Treatment [facility] Dialysi - [place] [address] [place], [place] [id number] Carlota Jin MD [address] [place] [address], [facility] 2 [place] [phone] 01/17/2025 6:45 EDT Treatment [facility] Dialysi - [place] [address] [place], [place] [id number] Carlota Jin MD 1 [facility], [facility] 2 [place] [phone] 01/19/2025 6:45 EDT Treatment [facility] Dialysi - [place] [address] [place], [place] [id number] Carlota Jin MD 1 [facility], [facility] 2 [place] [phone] 01/22/2025 6:45 EDT Treatment [facility] Dialysi - [place] [address] [place], [place] [id number] Carlota Jin MD 1 [facility], [facility] 2 [place] [phone] 01/24/2025 6:45 EDT Treatment [facility] Dialysi - [place] [address] [place], [place] [phone] Carlota Jin MD 1 [facility], [facility] 2 [place] [phone] 01/26/2025 6:45 EDT Treatment [facility] Dialysi - [place] [address] [place] [address] Carlota Jin MD 1 [facility], [facility] 2 [place] [phone] 01/29/2025 6:45 EDT Treatment [facility] Dialysi - [place] [address] [place] [address] Carlota Jin MD 1 [facility], [facility] 2 [place] [phone] 01/31/2025 6:45 EDT Treatment [facility] Dialysi - [place] [address] [place], [place] [phone] Carlota Jin MD 1 [facility], [facility] 2 [place] [phone] 02/02/2025 6:45 EDT Treatment [facility] Dialysi - [place] [address] [place], [place] [id number] Carlota Jin MD 1 [facility], [facility] 2 [place] [phone] 02/05/2025 6:45 EDT Treatment [facility] Dialysi - [place] [address] [place], [place] [id number] Carlota Jin MD 1 [facility], [facility] 2 [place] [phone] 02/07/2025 6:45 EDT Treatment [facility] Dialysi - [place] [address] [place], [place] [id number] Carlota Jin MD 1 [facility], [facility] 2 [place] [phone] 02/09/2025 6:45 EDT Treatment [facility] Dialysi - [place] [address] [place], [place] [address] Carlota Jin MD 1 [facility], [facility] 2 [place] [phone] 02/12/2025 6:45 EDT Treatment [facility] Dialysi - [place] [address] [place], [place] [id number] Carlota Jin MD 1 [facility], [facility] 2 [place] [phone] 02/14/2025 6:45 EDT Treatment [facility] Dialysi - [place] [address] [place], [place] [phone] Carlota Jin MD 1 [facility], [facility] 2 [place] [phone] 02/16/2025 6:45 EDT Treatment [facility] Dialysi [facility] [address] [place], [place] [phone] Carlota Jin MD 1 [facility], [facility] 2 [place] [phone] 02/19/2025 6:45 EDT Treatment [facility] Dialysi [facility] [address] [place], [place] [id number] Carlota Jin MD 1 [facility], [facility] 2 [place] [phone] 02/21/2025 6:45 EDT Treatment [facility] Dialysi [facility] [address] [place], [place] [phone] Carlota Jin MD 1 [facility], [facility] 2 [place] [phone] documented as of this encounter Procedures Procedure Name Priority Date/Time Associated Diagnosis Comments POSTDIALYSIS BUN WITH URR CALCULATION Routine 03/03/2024 14:30 EDT BUN, PREDIALYSIS Routine 03/03/2024 6:46 EDT HEMODIALYSIS Routine 03/03/2024 6:39 EDT ESRD (end stage renal disease) ([facility]) documented in this encounter Results * (ABNORMAL) POSTDIALYSIS BUN WITH URR CALCULATION (03/03/2024 14:30 EDT) [employer] Signature BUN, Postdialysis 13 10 - 26 mg/dL 03/03/2024 21:52 EDT [facility] Urea Reduction Rate 69.0 Not Established % 03/03/2024 21:52 EDT [facility] Comment: NOTE: Reference range not established for Urea Reduction Rate. BUN 42(H) 10 - 26 mg/dL 03/03/2024 21:52 EDT [facility] Blood VENOUS BLOOD / Unknown Venipuncture / Unknown 03/03/2024 14:30 EDT 03/03/2024 14:30 EDT Carlota Jin MD CHEMISTRY & BLOOD GAS ORD ERABLES Final Result [facility] [address] [place] [address] * (ABNORMAL) BUN, PREDIALYSIS (03/03/2024 6:46 EDT) BUN, Predialysis 42(H) 10 - 26 mg/dL 03/03/2024 21:51 EDT [facility] Blood VENOUS BLOOD / Unknown Venipuncture / Unknown 03/03/2024 6:46 EDT 03/03/2024 6:46 EDT Carlota Jin MD CHEMISTRY & BLOOD GAS ORD ERABLES Final Result [facility] [address] [place] [phone] documented in this encounter Visit Diagnoses Diagnosis ESRD (end stage renal disease) ([facility])- Primary End stage renal disease Anemia of chronic renal failure, unspecified CKD stage Hypoalbuminemia Other disorders of plasma protein metabolism Secondary hyperparathyroidism ([facility]) Secondary hyperparathyroidism (of renal origin) documented in this encounter Administered Medications Inactive Administered Medications - up to 3 most recent administrations Medication Order MAR Action Action Date Dose Rate Site calcium carbonate (TUMS) tablet 500 mg (200 mg elemental calcium) 2 Tablet 2 Tablet, oral, ONCE IN DIALYSIS, 1 dose, On Wed03/03/24 at 0700, Routine, DialysisIndications:ESRD (end stage renal disease) ([facility]),Secondary hyperparathyroidism ([facility]) Given 03/03/2024 6:58 EDT 2 Tablets epoetin ken (EPOGEN) 20,000 unit/2 mL injection 5,000 Units 5,000 Units, intravenous, ONCE IN DIALYSIS, 1 dose, On Wed03/03/24 at 0700, Routine, DialysisIndications:ESRD (end stage renal disease) ([facility]),Anemia of chronic renal failure, unspecified CKD stage Given 03/03/2024 6:58 EDT 5,000 Units heparin injection 7,000 Units 7,000 Units, intravenous, ONCE IN DIALYSIS, 1 dose, On Wed03/03/24 at 0700, Routine, Dialysis, Now x1 bolus 3400 units to be given at the beginning of dialysis 900 units/hour to be given over the course of dialysis (7000 units total). Stop 1 hour prior to end of treatment. To be administered per Policy [id number].Indications:ESRD (end stage renal disease) ([facility]) Given 03/03/2024 6:58 EDT 7,000 Units LiquaCel liquid protein liquid 30 mL 30 mL, oral, ONCE IN DIALYSIS, 1 dose, On Wed03/03/24 at 0700, Patient's flavor preference: either, RoutineIndications:ESRD (end stage renal disease) ([facility]),Hypoalbuminemia Given 03/03/2024 6:58 EDT 30 mL documented in this encounter Orders Dialysis Count Last Ordered Date First Orde red Date HEMODIALYSIS 1 03/03/2024 documented in this encounter Care Teams Sales Service Manager Relationship Specialty Start Date End Date Ken Greer MD [facility] [place] [address] PCP - General 07/07/23 documented as of this encounter
--- OUTSIDE RECORDS SUMMARY | 2024-12-05 12:07 | XMS_ITS | Encounter Summary ---
Author Organization [facility] Address [address] [place] [address] Care Team Providers Care Passport Support Associate Name Role Phone Ken Greer MD Primary Care Provider [phone] Encounter Details Date Type Department Care Team (Late st Contact Info) Description 02/29/2024 Documentation Visit [address] [place], [place] [address] Yoanna Degroot, VIDYA Social History Tobacco Use [...] Info) Description 12/06/2024 6:45 EST Treatment [facility] Dialysi - [place] [address] [place], [place] [phone] Carlota Jin MD 1 [facility], [facility] [address] [place] [phone] 12/08/2024 6:45 EST Treatment [facility] Dialysi - [place] [address] [place], [place] [phone] Carlota Jin MD 1 [facility] 2 [place] [phone] 12/11/2024 6:45 EST Treatment [facility] [place]ys[place] [address] [place], [place] [id number] Carlota Jin MD 1 [facility], [facility] 2 [place] [phone] 12/13/2024 6:45 EST Treatment [facility] [address] [place], [place] [id number] Carlota Jin MD 1 [facility], [facility] [address] [place] [phone] 12/15/2024 6:45 EST Treatment [facility] Dialysi - [place] [address] [place], [place] [id number] Carlota Jin MD 1 [facility], [facility] [address] [place] [phone] 12/18/2024 6:45 EST Treatment [facility] Dialysi - [place] [address] [place], [place] [id number] Carlota Jin MD 1 [facility], [facility] [address] [place] [phone] 12/20/2024 6:45 EST Treatment [facility] D[place]ysi - [place] [address] [place], [place] [id number] Carlota Jin MD 1 [facility], [facility] [address] [place] [phone] 12/22/2024 6:45 EST Treatment [facility] D[facility] [address] [place], [place] [id number] Carlota Jin MD 1 [facility], [facility] [address] [place] [phone] 12/25/2024 6:45 EST Treatment [facility] Dial[facility] [address] [place], [place] [id number] Carlota Jin MD 1 [facility], [facility] [address] [place] [phone] 12/27/2024 6:45 EST Treatment [facility] Dialysi - [place] [address] [place], [place] [id number] Carlota Jin MD 1 [facility], [facility] [address] [place] [phone] 12/29/2024 6:45 EST Treatment [facility] Dialysi - [place] [address] [place], [place] [id number] Carlota Jin MD 1 [facility], [address] [phone] 01/01/2025 6:45 EDT Treatment [facility] Dialysi - [place] [address] [place], [place] [id number] Carlota Jin MD 1 [facility], [address] [phone] 01/03/2025 6:45 EDT Treatment [facility] [place] - [place] [address] [place], [place] [id number] Carlota Jin MD 1 [facility], [address] [phone] 01/05/2025 6:45 EDT Treatment [facility] D[place]ysi - [place] [address] [place], [place] [id number] Carlota Jin MD [address] [place] [address], [facility] [address] [place] [phone] 01/08/2025 6:45 EDT Treatment [facility] Dialysi - [place] [address] [place], [place] [id number] Carlota Jin MD 1 [facility], Level [address] [place] [phone] 01/10/2025 6:45 EDT Treatment [facility] D[place] - [place] [address] [place], [place] [address] Carlota Jin MD 1 [facility], [facility] [address] [place] [phone] 01/12/2025 6:45 EDT Treatment [facility] D[place] - [place] [address] [place], [place] [id number] Carlota Jin MD 1 [facility], [facility] [address] [place] [phone] 01/15/2025 6:45 EDT Treatment [facility] [place] - [place] [address] [place], [place] [id number] Carlota Jin MD 1 [facility], [facility] [address] [place] [phone] 01/17/2025 6:45 EDT Treatment [facility] [address] [place], [place] [id number] Carlota Jin MD 1 [facility], [facility] [address] [place] [phone] 01/19/2025 6:45 EDT Treatment [facility] [address] [place], [place] [id number] Carlota Jin MD 1 [facility], [facility] [address] [place] [phone] 01/22/2025 6:45 EDT Treatment [facility] - [place] [address] [place], [place] [id number] Carlota Jin MD 1 [facility], [facility] [address] [place] [phone] 01/24/2025 6:45 EDT Treatment [facility] - [place] [address] [place], [place] [id number] Carlota Jin MD 1 [facility], [facility] [address] [place] [phone] 01/26/2025 6:45 EDT Treatment [facility] - [place] [address] [place], [place] [id number] Carlota Jin MD 1 [facility], [facility] [address] [place] [phone] 01/29/2025 6:45 EDT Treatment [facility] [place] [address] [place], [place] [id number] Carlota Jin MD 1 [facility], [facility] [address] [place] [phone] 01/31/2025 6:45 EDT Treatment [facility] - [place] [address] [place], [place] [id number] Carlota Jin MD 1 [facility], [facility] [address] [place] [phone] 02/02/2025 6:45 EDT Treatment [facility] Dialysi - [place] [address] [place], [place] [id number] Carlota Jin MD 1 [facility], [facility] [address] [place] [phone] 02/05/2025 6:45 EDT Treatment [facility] D[place] - [place] [address] [place], [place] [id number] Carlota Jin MD 1 [facility], [facility] [address] [place] [phone] 02/07/2025 6:45 EDT Treatment [facility] Dialysi - [place] [address] [place] [address] Carlota Jin MD 1 [facility], [address] [phone] 02/09/2025 6:45 EDT Treatment [facility] D[place] - [place] [address] [place], [place] [id number] Carlota Jin MD 1 [facility], [address] [phone] 02/12/2025 6:45 EDT Treatment [facility] D[place] - [place] [address] [place] [address] Carlota Jin MD 1 [facility], [facility] [address] [place] [phone] 02/14/2025 6:45 EDT Treatment [facility] Dialysi - [place] [address] [place], [place] [id number] Carlota Jin MD 1 [facility], [facility] [address] [place] [phone] 02/16/2025 6:45 EDT Treatment [facility] [address] [place], [place] [id number] Carlota Jin MD 1 [facility], [facility] [address] [place] [phone] 02/19/2025 6:45 EDT [facility] [address] [place], [place] [id number] Carlota Jin MD [address] [place] [address], [facility] [address] [place] [phone] 02/21/2025 6:45 EDT Treatment [facility] [address] [place], [place] [id number] Carlota Jin MD [address] [place] [address], [facility] [address] [place] [phone] documented as of this encounter Visit Diagnoses Not on filedocumented in this encounter Care Teams Passport Support Associate Relationship Specialty Start Date End Date [place] [address] PCP - General 07/07/23 documented as of this encounter
--- OUTSIDE RECORDS SUMMARY | 2024-12-05 12:07 | XMS_ITS | Encounter Summary ---
Author Organization [facility] Address [address] [place] [address] Care Team Providers Care Disc Pad Grinding Machine Feeder Name Role Phone Ken Greer MD Primary Care Provider [phone] Encounter Details Date Type Department Care Team (Latest Contact Info) Description 03/08/2024 6:45 EDT Treatment [facility] [address] [place], [place] [id number] Carlota Jin MD 1 [facility], Level 2 [place] [phone] ESRD (end stage renal disease) ([facility]) (Primary Dx); Anemia of chronic renal failure, unspecified CKD stage; Hypoalbuminemia; Secondary hyperparathyroidism ([facility]) Social History Tobacco Use Types [...] - Temperature - - Respiratory Rate 16 03/08/2024 0622 EDT Oxygen Saturation - - Inhaled Oxygen Concentration - - Weight 86.1 kg (189 lb 13.1 oz) 03/08/2024 0627 EDT Height - - Body Mass Index 27.24 12/20/2023 2202 EST documented in this encounter [...] Flowsheet Note - Marcela Cox RN - 03/08/2024 1344 EDT 03/08/24 1044 Post-Hemodialysis Assessment Total Blood Processed (L) 89.61 Liters On Line Clearance: spKt/V 1.62 spKt/V Dialyzer Clearance Lightly streaked Treatment UFR (ml:kg:hr) 8.95 ml:kg:hr Final Critline Profile (%/hr) -1.83 Final Profile Profile A Critline refill Negative (25.4/25.3) Fluid Removed (L) 3.5 L Post-Dialysis Scale Weight 104 kg (229 lb 4.5 oz) Wheelchair Weight 20.9 kg (46 lb 1.2 oz) Prosthesis Weight 0 kg (0 lb) Post-Treatment Weight (kg) 83.1 Treatment Weight Change (kg) 3 kg Day Target Weight (kg) 83.1 Post Sitting/Lying BP (!) 199/91 Post Sitting/Lying pulse 72 Temp 36.2 ??C (97.2 ??F) Temp src Temporal Post access assessment [...] Dialysis Rounding - Skye Gomez NP - 03/08/2024 0645 EDT Dialysis Provider's Routine Assessment The visit was conducted via telehealth (audio/video) between the [facility] dialysis unit and the provider from their [...] unit; Patient location state: Visit Location State: [place] The location of the provider: Office; Provider location state: Visit Location State: [place] Gerson Bruner was seen and examined as appropriate during Dialysis. Pertinent lab results were reviewed. Changes since last visit: None Changes to current prescriptions/orders: None Will continue to evaluate TW post hospitalization changes. Skye Gomez NP documented in this encounter Plan of Treatment Upcoming Encounters Date Type Department Care Team (Late st Contact Info) Description 12/06/2024 6:45 EST Treatment [facility] [address] [place], [place] [phone] Carlota Jin MD 1 [facility], [facility] 2 [place] [phone] 12/08/2024 6:45 EST Treatment [facility] [address] [place], [place] [id number] Carlota Jin MD [address] [place] [phone] 12/11/2024 6:45 EST Treatment [facility] [address] [place], [place] [id number] Carlota Jin MD [address] [place] [phone] 12/13/2024 6:45 EST Treatment [facility] [place] [address] [place], [place] [id number] Carlota Jin MD [address] [place] [address], [address] [phone] 12/15/2024 6:45 EST Treatment [facility] [place] [address] [place], [place] [id number] Carlota Jin MD [address] [place] [phone] 12/18/2024 6:45 EST Treatment [facility] [address] [place], [place] [id number] Carlota Jin MD 1 [facility], [facility] 2 [place] [phone] 12/20/2024 6:45 EST Treatment [facility] [address] [place], [place] [id number] Carlota Jin MD 1 [facility], [facility] 2 [place] [phone] 12/22/2024 6:45 EST Treatment [facility] [address] [place], [place] [id number] Carlota Jin MD 1 [facility], [facility] 2 [place] [phone] 12/25/2024 6:45 EST Treatment [facility] [address] [place], [place] [id number] Carlota Jin MD 1 [facility], [facility] 2 [place] [phone] 12/27/2024 6:45 EST Treatment [facility] [address] [place], [place] [id number] Carlota Jin MD 1 [facility], [facility] 2 [place] [phone] 12/29/2024 6:45 EST Treatment [facility] [address] [place] [address] Carlota Jin MD 1 [facility], [facility] 2 [place] [phone] 01/01/2025 6:45 EDT Treatment [facility] [address] [place], [place] [id number] Carlota Jin MD 1 [facility], [facility] 2 [place] [phone] 01/03/2025 6:45 EDT Treatment [facility] [address] [place] [address] Carlota Jin MD 1 [facility], [address] [phone] 01/05/2025 6:45 EDT Treatment [facility] [address] [place], [place] [id number] Carlota Jin MD 1 [facility], [address] [phone] 01/08/2025 6:45 EDT Treatment [facility] [address] [place] [address] Carlota Jin MD 1 [facility], [facility] 2 [place] [phone] 01/10/2025 6:45 EDT Treatment [facility] [address] [place], [place] [phone] Carlota Jin MD 1 [facility], [facility] 2 [place] [phone] 01/12/2025 6:45 EDT Treatment [facility] [address] [place], [place] [address] Carlota Jin MD 1 [facility], [facility] 2 [place] [phone] 01/15/2025 6:45 EDT Treatment [facility] [address] [place], [place] [phone] Carlota Jin MD [address] [place] [address], [facility] 2 [place] [phone] 01/17/2025 6:45 EDT Treatment [facility] [address] [place], [place] [address] Carlota Jin MD 1 [facility], [facility] 2 [place] [phone] 01/19/2025 6:45 EDT Treatment [facility] [address] [place], [place] [address] Carlota Jin MD [address] [place] [address], [facility] 2 [place] [phone] 01/22/2025 6:45 EDT Treatment [facility] [address] [place], [place] [phone] Carlota Jin MD [address] [place] [address], [facility] 2 [place] [phone] 01/24/2025 6:45 EDT Treatment [facility] [address] [place], [place] [address] Carlota Jin MD 1 [facility], [address] [phone] 01/26/2025 6:45 EDT Treatment [facility] [address] [place] [address] Carlota Jin MD 1 [facility], [address] [phone] 01/29/2025 6:45 EDT Treatment [facility] [address] [place], [place] [phone] Carlota Jin MD 1 [facility], [address] [phone] 01/31/2025 6:45 EDT Treatment [facility] [address] [place], [place] [phone] Carlota Jin MD 1 [facility], [address] [phone] 02/02/2025 6:45 EDT Treatment [facility] [address] [place], [place] [phone] Carlota Jin MD [address] [phone] 02/05/2025 6:45 EDT Treatment [facility] [address] [place], [place] [phone] Carlota Jin MD 1 [facility], [facility] 2 [place] [phone] 02/07/2025 6:45 EDT Treatment [facility] [address] [place], [place] [phone] Carlota Jin MD 1 [facility], [facility] 2 [place] [phone] 02/09/2025 6:45 EDT Treatment [facility] [address] [place], [place] [phone] Carlota Jin MD 1 [facility], [facility] 2 [place] [phone] 02/12/2025 6:45 EDT Treatment [facility] [address] [place], [place] [phone] Carlota Jin MD 1 [facility], [address] [phone] 02/14/2025 6:45 EDT Treatment [facility] [address] [place], [place] [phone] Carlota Jin MD 1 [facility], [facility] 2 [place] [phone] 02/16/2025 6:45 EDT Treatment [facility] [place] [address] [place], [place] [phone] Carlota Jin MD 1 [facility], [facility] 2 [place] [phone] 02/19/2025 6:45 EDT Treatment [facility] [address] [place], [place] [phone] Carlota Jin MD 1 [facility], Level [address] [place] [phone] 02/21/2025 6:45 EDT Treatment [facility] [address] [place] [address] Carlota Jin MD 1 [facility], [address] [place] [phone] documented as of this encounter Procedures Procedure Name Priority Date/Time Associated Diagnosis Comments COMPLETE BLOOD COUNT Routine 03/08/2024 6:30 EDT ESRD (end stage renal disease) ([facility]) HEMODIALYSIS Routine 03/08/2024 6:23 EDT ESRD (end stage renal disease) ([facility]) documented in this encounter Results * (ABNORMAL) COMPLETE BLOOD COUNT (03/08/2024 6:30 EDT) WBC 12.43(H) 4.00 - 10.40 K/cmm 03/08/2024 22:20 [facility] RBC 2.68(L) 4.36 - 5.78 M/cmm 03/08/2024 22:20 [facility] Hemoglobin 7.7(L) 13.8 - 17.3 g/dL 03/08/2024 22:20 [facility] HCT 24.6(L) 39.5 - 50.2 % 03/08/2024 22:20 [facility] MCV 92 81 - 95 fL 03/08/2024 22:20 [facility] MCH 28.7 27.6 - 33.0 pg 03/08/2024 22:20 [facility] MCHC 31.3(L) 32.8 - 36.4 g/dL 03/08/2024 22:20 EDT [facility] RDW-CV 16.6(H) <14.2 % 03/08/2024 22:20 EDT [facility] RDW-SD 55.2(H) <46.0 fl 03/08/2024 22:20 EDT [facility] PLT 477(H) 141 - 377 K/cmm 03/08/2024 22:20 EDT [facility] MPV 11.1 9.5 - 12.7 fL 03/08/2024 22:20 EDT [facility] Blood VENOUS BLOOD / Unknown Venipuncture / Unknown 03/08/2024 6:30 EDT 03/08/2024 6:30 EDT us Skye Gomez NP HEMATOLOGY & PF4 ORDERABLES Final Result [facility] [address] [place] [phone] documented in this encounter Visit Diagnoses Diagnosis ESRD (end stage renal disease) ([facility] Primary End stage renal disease Anemia of chronic renal failure, unspecified CKD stage Hypoalbuminemia Other disorders of plasma protein metabolism Secondary hyperparathyroidism ([facility]) Secondary hyperparathyroidism (of renal origin) documented in this encounter Administered Medications Inactive Administered Medications - up to 3 most recent administrations Medication Order MAR Action Action Date Dose Rate Site calcium carbonate (TUMS) tablet 500 mg (200 mg elemental calcium) 2 Tablet 2 Tablet, oral, ONCE IN DIALYSIS, 1 dose, On Wed03/08/24 at 0645, Routine, DialysisIndications:ESRD (end stage renal disease) ([facility]),Secondary hyperparathyroidism ([facility]) Given 03/08/2024 6:59 EDT 2 Tablets epoetin ken (EPOGEN) 20,000 unit/2 mL injection 6,500 Units 6,500 Units, intravenous, ONCE IN DIALYSIS, 1 dose, On Wed03/08/24 at 0645, Routine, DialysisIndications:ESRD (end stage renal disease) ([facility]),Anemia of chronic renal failure, unspecified CKD stage Given 03/08/2024 6:59 EDT 6,500 Units heparin injection 7,000 Units 7,000 Units, intravenous, ONCE IN DIALYSIS, 1 dose, On Wed03/08/24 at 0645, Routine, Dialysis, Now x1 bolus 3400 units to be given at the beginning of dialysis 900 units/hour to be given over the course of dialysis (7000 units total). Stop 1 hour prior to end of treatment. To be administered per Policy [id number].Indications:ESRD (end stage renal disease) ([facility]) Given 03/08/2024 6:59 EDT 7,000 Units LiquaCel liquid protein liquid 30 mL 30 mL, oral, ONCE IN DIALYSIS, 1 dose, On Wed03/08/24 at 0645, Patient's flavor preference: either, RoutineIndications:ESRD (end stage renal disease) ([facility]),Hypoalbuminemia Given 03/08/2024 6:59 EDT 30 mL documented in this encounter Orders Dialysis Count Last Ordered Date First Orde red Date HEMODIALYSIS 1 03/08/2024 documented in this encounter Additional Health Concerns Infection Onset Date Last Indicated Resolved Time COVID-19 Comment:Collected @ [facility]. 03/12/2024 03/13/2024 04/01/2024 22: 15 EDT documented as of this encounter Care Teams Disc Pad Grinding Machine Feeder Relationship Specialty Start Date End Date Ken Greer MD [address] [facility] [place] [address] PCP - General 07/07/23 documented as of this encounter
--- OUTSIDE RECORDS SUMMARY | 2024-12-05 12:07 | XMS_ITS | Encounter Summary ---
Author Organization [facility] Address [address] [place] [address] Care Team Providers Care Financial Planning Advisor Name Role Phone Ken Greer MD Primary Care Provider [phone] Encounter Details Date Type Department Care Team (Latest Contact Info) Description 03/01/2024 6:45 EDT Treatment [facility] [address] [place], [place] [id number] Carlota Jin MD 1 [facility], Level 2 [place] [phone] ESRD (end stage renal disease) ([facility]) (Primary Dx); Anemia of chronic renal failure, unspecified CKD stage; Hypoalbuminemia; Secondary hyperparathyroidism ([facility]) Social History Tobacco Use Types [...] - Temperature - - Respiratory Rate 16 03/01/2024 0627 EDT Oxygen Saturation - - Inhaled Oxygen Concentration - - Weight 84.8 kg (186 lb 15.2 oz) 03/01/2024 0632 EDT Height - - Body Mass Index [...] Flowsheet Note - Marcela Cox RN - 03/01/2024 1415 EDT 03/01/24 1044 Post-Hemodialysis Assessment Total Blood Processed (L) 85.63 Liters On Line Clearance: spKt/V 1.56 spKt/V Dialyzer Clearance Lightly streaked Treatment UFR (ml:kg:hr) 4.95 ml:kg:hr Final Critline Profile (%/hr) -0.85 Final Profile Profile A Fluid Removed (L) 1.8 L Post-Dialysis Scale Weight 104.1 kg (229 lb 8 oz) Wheelchair Weight 20.9 kg (46 lb 1.2 oz) Prosthesis Weight 0 kg (0 lb) Post-Treatment Weight (kg) 83.2 Treatment Weight Change (kg) 1.6 kg Day Target Weight (kg) 83.5 Post Sitting/Lying BP 151/81 Post Sitting/Lying pulse 63 Temp 35.6 ??C (96.1 ??F) Temp src Temporal Post access assessment AVF/AFG Hemostasis achieved Yes Note 9 minute hold both sites Orientation Alert and Oriented x3 Yes Time Yes Place Yes Person Yes Cooperative Yes Disoriented No Discharge Ambulation Methods Departs via w/c Wrap up items Patient Response to Treatment Tolerated tx well. Removed 1.8L UF goal without difficulty. Comments No issues during tx, no concerns voiced post tx. documented in this encounter Plan of Treatment Upcoming Encounters Date Type Department Care Team (Late st Contact Info) Description 12/06/2024 6:45 EST Treatment [facility] [address] [place], [place] [phone] Carlota Jin MD [address] [place] [phone] 12/08/2024 6:45 EST Treatment [facility] [address] [place], [place] [phone] Carlota Jin MD [address] [place] [phone] 12/11/2024 6:45 EST Treatment [facility] [address] [place], [place] [phone] Carlota iJn MD [address] [place] [phone] 12/13/2024 6:45 EST Treatment [facility] [address] [place], [place] [phone] Carlota Jin MD 1 [facility] 2 [place] [phone] 12/15/2024 6:45 EST Treatment [facility] - [place] [address] [place], [place] [phone] Carlota Jin MD 1 [facility], [facility] 2 [place] [phone] 12/18/2024 6:45 EST Treatment [facility] [place] [address] [place] [address] Carlota Jin MD 1 [facility], [facility] 2 [place] [phone] 12/20/2024 6:45 EST Treatment [facility] - [place] [address] [place] [address] Carlota Jin MD 1 [facility], [facility] 2 [place] [phone] 12/22/2024 6:45 EST Treatment [facility] - [place] [address] [place], [place] [phone] Carlota Jin MD 1 [facility], [facility] 2 [place] [phone] 12/25/2024 6:45 EST Treatment [facility] - [place] [address] [place], [place] [phone] Carlota Jin MD 1 [facility], [facility] 2 [place] [phone] 12/27/2024 6:45 EST Treatment [facility] - [facility] [address] [place], [place] [phone] Carlota Jin MD 1 [facility], [facility] 2 [place] [phone] 12/29/2024 6:45 EST Treatment [facility] [address] [place], [place] [phone] Carlota Jin MD 1 [facility], [facility] 2 [place] [phone] 01/01/2025 6:45 EDT Treatment [facility] - [place] [address] [place], [place] [phone] Carlota Jin MD 1 [facility], [facility] 2 [place] [phone] 01/03/2025 6:45 EDT Treatment [facility] - [place] [address] [place], [place] [phone] Carlota Jin MD 1 [facility], [facility] 2 [place] [phone] 01/05/2025 6:45 EDT Treatment [facility] - [facility] [address] [place], [place] [phone] Carlota Jin MD 1 [facility], [facility] 2 [place] [phone] 01/08/2025 6:45 EDT Treatment [facility] [address] [place], [place] [phone] Carlota Jin MD 1 [facility], [facility] 2 [place] [phone] 01/10/2025 6:45 EDT Treatment [facility] [address] [place], [place] [phone] Carlota Jin MD 1 [facility], [facility] 2 [place] [phone] 01/12/2025 6:45 EDT Treatment [facility] [address] [place] [address] Carlota Jin MD 1 [facility], [address] [phone] 01/15/2025 6:45 EDT Treatment [facility] - [place] [address] [place], [place] [phone] Carlota Jin MD 1 [facility], [address] [phone] 01/17/2025 6:45 EDT Treatment [facility] - [place] [address] [place] [address] Carlota Jin MD 1 [facility], [facility] 2 [place] [phone] 01/19/2025 6:45 EDT Treatment [facility] - [facility] [address] [place], [place] [phone] Carlota Jin MD 1 [facility], [facility] 2 [place] [phone] 01/22/2025 6:45 EDT Treatment [facility] - [facility] [address] [place], [place] [address] Carlota Jin MD 1 [facility], [facility] 2 [place] [phone] 01/24/2025 6:45 EDT Treatment [facility] - [place] [address] [place], [place] [address] Carlota Jin MD 1 [facility], [facility] 2 [place] [phone] 01/26/2025 6:45 EDT Treatment [facility] - [place] [address] [place], [place] [address] Carlota Jin MD 1 [facility], [address] [phone] 01/29/2025 6:45 EDT Treatment [facility] - [place] [address] [place], [place] [address] Carlota Jin MD 1 [facility], [facility] 2 [place] [phone] 01/31/2025 6:45 EDT Treatment [facility] - [facility] [address] [place], [place] [phone] Carlota Jin MD 1 [facility], [facility] 2 [place] [phone] 02/02/2025 6:45 EDT Treatment [facility] - [facility] [address] [place], [place] [address] Carlota Jin MD 1 [facility], [address] [phone] 02/05/2025 6:45 EDT Treatment [facility] - [place] [address] [place], [place] [address] [phone] Carlota Jin MD 1 [facility], [address] [phone] 02/07/2025 6:45 EDT Treatment [facility] - [facility] [address] [place], [place] [address] Carlota Jin MD 1 [facility], [address] [phone] 02/09/2025 6:45 EDT Treatment [facility] - [facility] [address] [place] [address] Carlota Jin MD 1 [facility], [address] [phone] 02/12/2025 6:45 EDT Treatment [facility] - [place] [address] [place], [place] [phone] Carlota Jin MD [address] [phone] 02/14/2025 6:45 EDT Treatment [facility] - [place] [address] [place], [place] [address] Carlota Jin MD 1 [facility], [address] [phone] 02/16/2025 6:45 EDT Treatment [facility] - [place] [address] [place], [place] [phone] Carlota Jin MD 1 [facility], [facility] 2 [place] [phone] 02/19/2025 6:45 EDT Treatment [facility] - [place] [address] [place], [place] [phone] Carlota Jin MD 1 [facility], [address] [phone] 02/21/2025 6:45 EDT Treatment [facility] - [facility] [address] [place], [place] [phone] Carlota Jin MD [address] [place] [address], [address] [phone] documented as of this encounter Procedures Procedure Name Priority Date/Time Associated Diagnosis Comments COMPLETE BLOOD COUNT Routine 03/01/2024 6:36 EDT ESRD (end stage renal disease) ([facility]) HEMODIALYSIS Routine 03/01/2024 6:27 EDT ESRD (end stage renal disease) ([facility]) documented in this encounter Results * (ABNORMAL) COMPLETE BLOOD COUNT (03/01/2024 6:36 EDT) WBC 11.02(H) 4.00 - 10.40 K/cmm 03/01/2024 21:45 EDT [facility] RBC 2.61(L) 4.36 - 5.78 M/cmm 03/01/2024 21:45 EDT [facility] Hemoglobin 7.5(L) 13.8 - 17.3 g/dL 03/01/2024 21:45 [facility] HCT 23.9(L) 39.5 - 50.2 % 03/01/2024 21:45 [facility] MCV 92 81 - 95 fL 03/01/2024 21:45 [facility] MCH 28.7 27.6 - 33.0 pg 03/01/2024 21:45 [facility] MCHC 31.4(L) 32.8 - 36.4 g/dL 03/01/2024 21:45 [facility] RDW-CV 15.3(H) <14.2 % 03/01/2024 21:45 [facility] RDW-SD 51.2(H) <46.0 fl 03/01/2024 21:45 [facility] PLT 519(H) 141 - 377 K/cmm 03/01/2024 21:45 [facility] MPV 11.4 9.5 - 12.7 fL 03/01/2024 21:45 [facility] Blood VENOUS BLOOD / Unknown Venipuncture / Unknown 03/01/2024 6:36 EDT 03/01/2024 6:36 EDT us Skye Gomez NP HEMATOLOGY & PF4 ORDERABLES Final Result Performing Organization Address City/State/[facility] Co de Phone Number [facility] [address] [place], [place] [phone] documented in this encounter Visit Diagnoses Diagnosis ESRD (end stage renal disease) ([facility])- Primary End stage renal disease Anemia of chronic renal failure, unspecified CKD stage Hypoalbuminemia Other disorders of plasma protein metabolism Secondary hyperparathyroidism ([facility]) Secondary hyperparathyroidism (of renal origin) documented in this encounter Administered Medications Inactive Administered Medications - up to 3 most recent administrations Medication Order MAR Action Action Date Dose Rate Site acetaminophen (TYLENOL) tablet 650 mg 650 mg, oral, EVERY 4 HOURS PRN, Starting on Wed03/01/24 at 0629, Until Wed03/01/24 at 1615, Pain, Routine, DialysisIndications:ESRD (end stage renal disease) ([facility]) Given 03/01/2024 6:50 EDT 650 mg calcium carbonate (TUMS) tablet 500 mg (200 mg elemental calcium) 2 Tablet 2 Tablet, oral, ONCE IN DIALYSIS, 1 dose, On Wed03/01/24 at 0645, Routine, DialysisIndications:ESRD (end stage renal disease) ([facility]),Secondary hyperparathyroidism ([facility]) Given 03/01/2024 6:50 EDT 2 Tablets epoetin ken (EPOGEN) 20,000 unit/2 mL injection 5,000 Units 5,000 Units, intravenous, ONCE IN DIALYSIS, 1 dose, On Wed03/01/24 at 0645, Routine, DialysisIndications:ESRD (end stage renal disease) ([facility]),Anemia of chronic renal failure, unspecified CKD stage Given 03/01/2024 6:50 EDT 5,000 Units heparin injection 7,000 Units 7,000 Units, intravenous, ONCE IN DIALYSIS, 1 dose, On Wed03/01/24 at 0645, Routine, Dialysis, Now x1 bolus 3400 units to be given at the beginning of dialysis 900 units/hour to be given over the course of dialysis (7000 units total). Stop 1 hour prior to end of treatment. To be administered per Policy [id number].Indications:ESRD (end stage renal disease) ([facility]) Given 03/01/2024 6:50 EDT 7,000 Units LiquaCel liquid protein liquid 30 mL 30 mL, oral, ONCE IN DIALYSIS, 1 dose, On Wed03/01/24 at 0645, Patient's flavor preference: either, RoutineIndications:ESRD (end stage renal disease) ([facility]),Hypoalbuminemia Given 03/01/2024 6:50 EDT 30 mL documented in this encounter Discontinued Medications Medication Sig Discontinue Reason Start Date End Da te pregabalin (LYRICA) 100 mg capsule Take 1 Capsule by mouth 2 times daily. Daily Max: 200 mg Dose adjustment 12/24/2023 03/01/2024 documented as of this encounter Historical Medications * This list may reflect changes made after this encounter. pregabalin (LYRICA) 100 mg capsule Take 1 Capsule by mouth 2 times daily. 1 tab in the morning, 2 tabs at night pregabalin (LYRICA) 75 mg capsule Take 1 Capsule by mouth at bedtime. Daily Max: 75 mg 04/03/2024 added in this encounter Orders Dialysis Count Last Ordered Date First Orde red Date HEMODIALYSIS 1 03/01/2024 documented in this encounter Care Teams Financial Planning Advisor Relationship Specialty Start Date End Date Ken Greer MD [address] [place] [address] PCP - General 07/07/23 documented as of this encounter
--- OUTSIDE RECORDS SUMMARY | 2024-12-05 12:07 | XMS_ITS | Encounter Summary ---
Author Organization [facility] Address [address] [place] [address] Care Team Providers Care Mat Weaver Name Role Phone Ken Greer MD Primary Care Provider [phone] Encounter Details Date Type Department Care Team (Late st Contact Info) Description 02/29/2024 Documentation Visit [address] [place] [address] Shelley Eden, RD [address] [place] [address] Social History Tobacco Use Types Packs/Day Years [...] [facility] [address] [place], [place] [phone] Carlota Jin MD [address] [place] [address], [facility] [address] [place] [phone] 12/08/2024 6:45 EST Treatment [facility] [address] [place], [place] [phone] Carlota Jin MD [address] [place] [address] [address] [place] [phone] 12/11/2024 6:45 EST Treatment [facility] [address] [place], [place] [phone] Carlota Jin MD [address] [place] [address] [address] [place] [phone] 12/13/2024 6:45 EST Treatment [facility] [address] [place], [place] [phone] Carlota Jin MD 1 [facility] [address] [place] [phone] 12/15/2024 6:45 EST Treatment [facility] - [place] [address] [place], [place] [phone] Carlota Jin MD 1 [facility] [address] [place] [phone] 12/18/2024 6:45 EST Treatment [facility] - [place] [address] [place] [address] Carlota Jin MD 1 [facility], [facility] [address] [place] [phone] 12/20/2024 6:45 EST Treatment [facility] [place] [address] [place] [address] Carlota Jin MD 1 [facility], [facility] [address] [place] [phone] 12/22/2024 6:45 EST Treatment [facility] - [place] [address] [place], [place] [phone] Carlota Jin MD 1 [facility], [facility] [address] [place] [phone] 12/25/2024 6:45 EST Treatment [facility] - [place] [address] [place], [place] [phone] Carlota Jin MD 1 [facility], [facility] [address] [place] [phone] 12/27/2024 6:45 EST Treatment [facility] [place] [address] [place], [place] [phone] Carlota Jin MD 1 [facility], [facility] [address] [place] [phone] 12/29/2024 6:45 EST Treatment [facility] - [place] [address] [place], [place] [phone] Carlota Jin MD 1 [facility], [facility] [address] [place] [phone] 01/01/2025 6:45 EDT Treatment [facility] [place] [address] [place], [place] [phone] Carlota Jin MD 1 [facility], [facility] [address] [place] [phone] 01/03/2025 6:45 EDT Treatment [facility] - [place] [address] [place], [place] [phone] Carlota Jin MD 1 [facility], [facility] [address] [place] [phone] 01/05/2025 6:45 EDT Treatment [facility] [place] [address] [place], [place] [phone] Carlota Jin MD 1 [facility], [facility] [address] [place] [phone] 01/08/2025 6:45 EDT Treatment [facility] [place] [address] [place], [place] [phone] Carlota Jin MD 1 [facility], [facility] [address] [place] [phone] 01/10/2025 6:45 EDT Treatment [facility] - [place] [address] [place], [place] [phone] Carlota Jin MD 1 [facility], [facility] [address] [place] [phone] 01/12/2025 6:45 EDT Treatment [facility] [place] [address] [place] [address] Carlota Jin MD 1 [facility], [address] [phone] 01/15/2025 6:45 EDT Treatment [facility] [place] [address] [place], [place] [id number] Carlota Jin MD 1 [facility], [address] [phone] 01/17/2025 6:45 EDT Treatment [facility] [place] [address] [place] [address] Carlota Jin MD 1 [facility], [facility] [address] [place] [phone] 01/19/2025 6:45 EDT Treatment [facility] [place] [address] [place], [place] [id number] Carlota Jin MD 1 [facility], [facility] [address] [place] [phone] 01/22/2025 6:45 EDT Treatment [facility] - [place] [address] [place], [place] [address] Carlota Jin MD 1 [facility], [facility] [address] [place] [phone] 01/24/2025 6:45 EDT Treatment [facility] - [place] [address] [place], [place] [address] Carlota Jin MD 1 [facility], [facility] [address] [place] [phone] 01/26/2025 6:45 EDT Treatment [facility] [place] [address] [place], [place] [id number] Carlota Jin MD 1 [facility], [address] [phone] 01/29/2025 6:45 EDT Treatment [facility] [place] [address] [place], [place] [address] Carlota Jin MD 1 [facility], [facility] [address] [place] [phone] 01/31/2025 6:45 EDT Treatment [facility] [place] [address] [place], [place] [phone] Carlota Jin MD 1 [facility], [facility] [address] [place] [phone] 02/02/2025 6:45 EDT Treatment [facility] [place] [address] [place], [place] [address] Carlota Jin MD 1 [facility], [address] [phone] 02/05/2025 6:45 EDT Treatment [facility] - [place] [address] [place], [place] [address] [phone] Carlota Jin MD 1 [facility], [address] [phone] 02/07/2025 6:45 EDT Treatment [facility] - [place] [address] [place], [place] [address] Carlota Jin MD 1 [facility], [address] [phone] 02/09/2025 6:45 EDT Treatment [facility] - [place] [address] [place] [address] Carlota Jin MD 1 [facility], [address] [phone] 02/12/2025 6:45 EDT Treatment [facility] [place] [address] [place], [place] [id number] Carlota Jin MD [address] [phone] 02/14/2025 6:45 EDT Treatment [facility] - [place] [address] [place], [place] [id number] Carlota Jin MD 1 [facility], [address] [phone] 02/16/2025 6:45 EDT Treatment [facility] [place] [address] [place], [place] [id number] Carlota Jin MD 1 [facility], [facility] [address] [place] [phone] 02/19/2025 6:45 EDT Treatment [facility] - [place] [address] [place], [place] [id number] Carlota Jin MD [address] [place] [address], [facility] [address] [place] [phone] 02/21/2025 6:45 EDT Treatment [facility] - [place] [address] [place], [place] [id number] Carlota Jin MD [address] [place] [address], [facility] [address] [place] [phone] documented as of this encounter Visit Diagnoses Not on filedocumented in this encounter Care Teams Mat Weaver Relationship Specialty Start Date End Date Ken [place] [address] [place] [address] PCP - General 07/07/23 documented as of this encounter
--- OUTSIDE RECORDS SUMMARY | 2024-12-05 12:07 | XMS_ITS | Encounter Summary ---
Author Organization [facility] Address [address] [place] [address] Care Team Providers Care Urban Sociologist Name Role Phone Ken Greer MD Primary Care Provider [phone] Encounter Details Date Type Department Care Team (Late st Contact Info) Description 03/01/2024 Orders Only [facility] [address] [place], [place] [address] Yoanna Degroot, VIDYA Social History Tobacco Use [...] Info) Description 12/06/2024 6:45 EST Treatment [facility] [place] [address] [place], [place] [id number] Carlota Jin MD 1 [facility], [facility] [address] [place] [phone] 12/08/2024 6:45 EST Treatment [facility] [place] [address] [place], [place] [id number] Carlota Jin MD 1 [facility] [address] [place] [phone] 12/11/2024 6:45 EST Treatment [facility] [place] [address] [place], [place] [id number] Carlota Jin MD 1 [facility], [facility] [address] [place] [phone] 12/13/2024 6:45 EST Treatment [facility] [address] [place], [place] [phone] Carlota Jin MD 1 [facility], [facility] [address] [place] [phone] 12/15/2024 6:45 EST Treatment [facility] [place] [address] [place], [place] [phone] Carlota Jin MD 1 [facility], [facility] [address] [place] [phone] 12/18/2024 6:45 EST Treatment [facility] [place] [address] [place], [place] [phone] Carlota Jin MD 1 [facility], [facility] [address] [place] [phone] 12/20/2024 6:45 EST Treatment [facility] [place] [address] [place], [place] [phone] Carlota Jin MD 1 [facility], [facility] [address] [place] [phone] 12/22/2024 6:45 EST Treatment [facility] [address] [place], [place] [phone] Carlota Jin MD 1 [facility], [facility] [address] [place] [phone] 12/25/2024 6:45 EST Treatment [facility] [address] [place], [place] [phone] Carlota Jin MD 1 [facility], [facility] [address] [place] [phone] 12/27/2024 6:45 EST Treatment [facility] [place] [address] [place], [place] [id number] Carlota Jin MD 1 [facility], [facility] [address] [place] [phone] 12/29/2024 6:45 EST Treatment [facility] [place] [address] [place], [place] [phone] Carlota Jin MD 1 [facility], [address] [phone] 01/01/2025 6:45 EDT Treatment [facility] [place] [address] [place], [place] [phone] Carlota Jin MD 1 [facility], [address] [phone] 01/03/2025 6:45 EDT Treatment [facility] [place] [address] [place], [place] [phone] Carlota Jin MD 1 [facility], [address] [phone] 01/05/2025 6:45 EDT Treatment [facility] [place] [address] [place], [place] [phone] Carlota Jin MD [address] [place] [address], [facility] [address] [place] [phone] 01/08/2025 6:45 EDT Treatment [facility] [place] [address] [place], [place] [phone] Carlota Jin MD 1 [facility], Level [address] [place] [phone] 01/10/2025 6:45 EDT Treatment [facility] [place] [address] [place], [place] [address] Carlota Jin MD 1 [facility], [facility] [address] [place] [phone] 01/12/2025 6:45 EDT Treatment [facility] [place] [address] [place], [place] [phone] Carlota Jin MD 1 [facility], [facility] [address] [place] [phone] 01/15/2025 6:45 EDT Treatment [facility] [place] [address] [place], [place] [phone] Carlota Jin MD 1 [facility], [facility] [address] [place] [phone] 01/17/2025 6:45 EDT Treatment [facility] [address] [place], [place] [phone] Carlota Jin MD 1 [facility], [facility] [address] [place] [phone] 01/19/2025 6:45 EDT Treatment [facility] [address] [place], [place] [phone] Carlota Jin MD 1 [facility], [facility] [address] [place] [phone] 01/22/2025 6:45 EDT Treatment [facility] [place] [address] [place], [place] [phone] Carlota Jin MD 1 [facility], [facility] [address] [place] [phone] 01/24/2025 6:45 EDT Treatment [facility] [place] [address] [place], [place] [phone] Carlota Jin MD 1 [facility], [facility] [address] [place] [phone] 01/26/2025 6:45 EDT Treatment [facility] [place] [address] [place], [place] [phone] Carlota Jin MD 1 [facility], [facility] [address] [place] [phone] 01/29/2025 6:45 EDT Treatment [facility] [place] [address] [place], [place] [phone] Carlota Jin MD 1 [facility], [facility] [address] [place] [phone] 01/31/2025 6:45 EDT Treatment [facility] [place] [address] [place], [place] [phone] Carlota Jin MD 1 [facility], [facility] [address] [place] [phone] 02/02/2025 6:45 EDT Treatment [facility] [place] [address] [place], [place] [phone] Carlota Jin MD 1 [facility], [facility] [address] [place] [phone] 02/05/2025 6:45 EDT Treatment [facility] [place] [address] [place], [place] [phone] Carlota Jin MD 1 [facility], [facility] [address] [place] [phone] 02/07/2025 6:45 EDT Treatment [facility] [place] [address] [place] [address] Carlota Jin MD 1 [facility], [address] [phone] 02/09/2025 6:45 EDT Treatment [facility] [place] [address] [place], [place] [phone] Carlota Jin MD 1 [facility], [address] [phone] 02/12/2025 6:45 EDT Treatment [facility] [place] [address] [place] [address] Carlota Jin MD 1 [facility], [facility] [address] [place] [phone] 02/14/2025 6:45 EDT Treatment [facility] [place] [address] [place], [place] [phone] Carlota Jin MD 1 [facility], [facility] [address] [place] [phone] 02/16/2025 6:45 EDT Treatment [facility] [address] [place], [place] [phone] Carlota Jin MD 1 [facility], [facility] [address] [place] [phone] 02/19/2025 6:45 EDT Treatment [facility] [address] [place], [place] [phone] Carlota Jin MD [address] [place] [address], [facility] [address] [place] [phone] 02/21/2025 6:45 EDT Treatment [facility] [address] [place], [place] [phone] Carlota Jin MD [address] [place] [address], [facility] [address] [place] [phone] documented as of this encounter Visit Diagnoses Not on filedocumented in this encounter Care Teams Urban Sociologist Relationship Specialty Start Date End Date [place] [address] PCP - General 07/07/23 documented as of this encounter
--- OUTSIDE RECORDS SUMMARY | 2024-12-05 12:07 | XMS_ITS | Encounter Summary ---
Author Organization [facility] Address [address] [place] [address] Care Team Providers Care Costume Mistress Name Role Phone Ken Greer MD Primary Care Provider [phone] Encounter Details Date Type Department Care Team (Latest Contact Info) Description 03/06/2024 6:45 EDT Treatment [facility] [address] [place], [place] [phone] Carlota Jin MD 1 [facility], Level [address] [place] [address] ESRD (end stage renal disease) ([facility]) (Primary Dx); Anemia of chronic renal failure, unspecified CKD stage; Hypoalbuminemia; Secondary hyperparathyroidism ([facility]) Social History Tobacco Use Types Packs/Day [...] - Temperature - - Respiratory Rate 16 03/06/2024 0626 EDT Oxygen Saturation - - Inhaled Oxygen Concentration - - Weight 86.9 kg (191 lb 9.3 oz) 03/06/2024 0632 E DT Height - - Body Mass Index 27.49 12/20/2023 2202 EST documented in this encounter [...] Flowsheet Note - Marcela Cox RN - 03/06/2024 1130 EDT 03/06/24 1046 Post-Hemodialysis Assessment Total Blood Processed (L) 89.98 Liters On Line Clearance: spKt/V 1.68 spKt/V Dialyzer Clearance Lightly streaked Treatment UFR (ml:kg:hr) 10.72 ml:kg:hr Final Critline Profile (%/hr) 0.17 Final Profile Profile A Critline refill Negative (11 min refill- H1: 26.0 H2: 25.7) Fluid Removed (L) 4 L Post-Dialysis Scale Weight 104.1 kg (229 lb 8 oz) Wheelchair Weight 20.8 kg (45 lb 13.7 oz) Prosthesis Weight 0 kg (0 lb) Post-Treatment Weight (kg) 83.3 Treatment Weight Change (kg) 3.6 kg Day Target Weight (kg) 83.4 Post Sitting/Lying BP 171/85 Post Sitting/Lying pulse 66 Temp 36.2 ??C [...] Contact Info) Description 12/06/2024 6:45 EST Treatment [facility] [address] [place], [place] [phone] Carlota Jin MD [address] [phone] 12/08/2024 6:45 EST Treatment [facility] [address] [place], [place] [phone] Carlota Jin MD 1 [facility], [facility] [address] [place] [phone] 12/11/2024 6:45 EST Treatment [facility] [address] [place], [place] [phone] Carlota Jin MD 1 [facility] 2 [place] [phone] 12/13/2024 6:45 EST Treatment [facility] [place] [address] [place], [place] [phone] Carlota Jin MD 1 [facility], [facility] [address] [place] [phone] 12/15/2024 6:45 EST Treatment [facility] [place] [address] [place], [place] [phone] Carlota Jin MD 1 [facility], [facility] [address] [place] [phone] 12/18/2024 6:45 EST Treatment [facility] [place] [address] [place], [place] [phone] Carlota Jin MD 1 [facility], [facility] [address] [place] [phone] 12/20/2024 6:45 EST Treatment [facility] [place] [address] [place], [place] [phone] Carlota Jin MD 1 [facility], [facility] [address] [place] [phone] 12/22/2024 6:45 EST Treatment [facility] [place] [address] [place], [place] [phone] Carlota Jin MD 1 [facility], [facility] [address] [place] [phone] 12/25/2024 6:45 EST Treatment [facility] [place] [address] [place], [place] [phone] Carlota Jin MD 1 [facility], [facility] [address] [place] [phone] 12/27/2024 6:45 EST Treatment [facility] [place] [address] [place], [place] [address] Carlota Jin MD 1 [facility], [facility] [address] [place] [phone] 12/29/2024 6:45 EST Treatment [facility] [place] [address] [place], [place] [phone] Carlota Jin MD 1 [facility], [facility] [address] [place] [phone] 01/01/2025 6:45 EDT Treatment [facility] [place] [address] [place], [place] [phone] Carlota Jin MD 1 [facility], [address] [phone] 01/03/2025 6:45 EDT Treatment [facility] [place] [address] [place], [place] [phone] Carlota Jin MD 1 [facility], [facility] [address] [place] [phone] 01/05/2025 6:45 EDT Treatment [facility] [place] [address] [place], [place] [address] Carlota Jin MD 1 [facility], [facility] [address] [place] [phone] 01/08/2025 6:45 EDT Treatment [facility] [place] [address] [place], [place] [phone] Carlota Jin MD 1 [facility], [facility] [address] [place] [phone] 01/10/2025 6:45 EDT Treatment [facility] [place] [address] [place], [place] [phone] Carlota Jin MD [address] [place] [address], [address] [phone] 01/12/2025 6:45 EDT Treatment [facility] [place] [address] [place], [place] [phone] Carlota Jin MD [address] [place] [address], [address] [phone] 01/15/2025 6:45 EDT Treatment [facility] [place] [address] [place], [place] [phone] Carlota Jin MD [address] [place] [address], [facility] [address] [place] [phone] 01/17/2025 6:45 EDT Treatment [facility] [place] [address] [place], [place] [phone] Carlota Jin MD [address] [place] [address], [facility] [address] [place] [phone] 01/19/2025 6:45 EDT Treatment [facility] [place] [address] [place], [place] [phone] Carlota Jin MD 1 [facility], [facility] [address] [place] [phone] 01/22/2025 6:45 EDT Treatment [facility] [place] [address] [place], [place] [phone] Carlota Jin MD 1 [facility], [facility] [address] [place] [phone] 01/24/2025 6:45 EDT Treatment [facility] [place] [address] [place], [place] [phone] Carlota Jin MD 1 [facility], [facility] [address] [place] [phone] 01/26/2025 6:45 EDT Treatment [facility] [place] [address] [place] [address] Carlota Jin MD 1 [facility], [facility] [address] [place] [phone] 01/29/2025 6:45 EDT Treatment [facility] [place] [address] [place] [address] Carlota Jin MD 1 [facility], [facility] [address] [place] [phone] 01/31/2025 6:45 EDT Treatment [facility] [place] [address] [place], [place] [phone] Carlota Jin MD 1 [facility], [facility] [address] [place] [phone] 02/02/2025 6:45 EDT Treatment [facility] [place] [address] [place], [place] [id number] Carlota Jin MD 1 [facility], [facility] [address] [place] [phone] 02/05/2025 6:45 EDT Treatment [facility] [place] [address] [place], [place] [phone] Carlota Jin MD 1 [facility], [facility] [address] [place] [phone] 02/07/2025 6:45 EDT Treatment [facility] [place] [address] [place], [place] [phone] Carlota Jin MD 1 [facility], [facility] [address] [place] [phone] 02/09/2025 6:45 EDT Treatment [facility] [place] [address] [place], [place] [phone] Carlota Jin MD 1 [facility], [facility] [address] [place] [phone] 02/12/2025 6:45 EDT Treatment [facility] [place] [address] [place], [place] [phone] Carlota Jin MD 1 [facility], [facility] [address] [place] [phone] 02/14/2025 6:45 EDT Treatment [facility] [place] [address] [place], [place] [phone] Carlota Jin MD 1 [facility], [address] [phone] 02/16/2025 6:45 EDT Treatment [facility] [address] [place], [place] [phone] Carlota Jin MD [address] [place] [address], [address] [phone] 02/19/2025 6:45 EDT [facility] [address] [place], [place] [phone] Carlota Jin MD [address] [place] [phone] 02/21/2025 6:45 EDT Treatment [facility] [address] [place], [place] [phone] Carlota Jin MD [address] [phone] documented as of this encounter Procedures Procedure Name Priority Date/Time Associated Diagnosis Comments HEMODIALYSIS Routine 03/06/2024 6:27 EDT ESRD (end stage renal disease) ([facility]) documented in this encounter Visit Diagnoses Diagnosis ESRD (end stage renal disease) ([facility])- Primary End stage renal disease Anemia of chronic renal failure, unspecified CKD stage Hypoalbuminemia Other disorders of plasma protein metabolism Secondary hyperparathyroidism ([facility]) Secondary hyperparathyroidism (of renal origin) documented in this encounter Administered Medications Inactive Administered Medications - up to 3 most recent administrations Medication Order MAR Action Action Date Dose Rate Site acetaminophen (TYLENOL) tablet 650 mg 650 mg, oral, EVERY 4 HOURS PRN, Starting on Wed03/06/24 at 0630, Until Wed03/06/24 at 1330, Pain, Routine, DialysisIndications:ESRD (end stage renal disease) ([facility]) Given 03/06/2024 6:36 EDT 650 mg calcium carbonate (TUMS) tablet 500 mg (200 mg elemental calcium) 2 Tablet 2 Tablet, oral, ONCE IN DIALYSIS, 1 dose, On Wed03/06/24 at 0645, Routine, DialysisIndications:ESRD (end stage renal disease) ([facility]),Secondary hyperparathyroidism ([facility]) Given 03/06/2024 6:36 EDT 2 Tablets epoetin ken (EPOGEN) 20,000 unit/2 mL injection 6,500 Units 6,500 Units, intravenous, ONCE IN DIALYSIS, 1 dose, On Wed03/06/24 at 0645, Routine, DialysisIndications:ESRD (end stage renal disease) ([facility]),Anemia of chronic renal failure, unspecified CKD stage Given 03/06/2024 6:53 EDT 6,500 Units heparin injection 7,000 Units 7,000 Units, intravenous, ONCE IN DIALYSIS, 1 dose, On Wed03/06/24 at 0645, Routine, Dialysis, Now x1 bolus 3400 units to be given at the beginning of dialysis 900 units/hour to be given over the course of dialysis (7000 units total). Stop 1 hour prior to end of treatment. To be administered per Policy [id number].Indications:ESRD (end stage renal disease) ([facility]) Given 03/06/2024 6:53 EDT 7,000 Units LiquaCel liquid protein liquid 30 mL 30 mL, oral, ONCE IN DIALYSIS, 1 dose, On Wed03/06/24 at 0645, Patient's flavor preference: either, RoutineIndications:ESRD (end stage renal disease) ([facility]),Hypoalbuminemia Given 03/06/2024 6:36 EDT 30 mL documented in this encounter Orders Dialysis Count Last Ordered Date First Orde red Date HEMODIALYSIS 1 03/06/2024 documented in this encounter Care Teams Costume Mistress Relationship Specialty Start Date End Date Ken Greer MD [address] [place] [address] PCP - General 07/07/23 documented as of this encounter
--- OUTSIDE RECORDS SUMMARY | 2024-12-05 12:07 | XMS_ITS | Encounter Summary ---
Author Organization [facility] Address [address] [place] [address] Care Team Providers Care Credit Report Checker Name Role Phone Ken Greer MD Primary Care Provider [phone] Encounter Details Date Type Department Care Team (Late st Contact Info) Description 02/28/2024 Documentation Visit [address] [place], [place] [id number] Marcela Cox, VIDYA Social History Tobacco Use [...] Progress Notes * Marcela Cox RN - 02/28/2024 1011 EDT 02/28/24 10:22 [facility] MEDICATION RECONCILIATION Medication review of home medications (prescriptions, upuj-asq-bubqasv, herbals, vitamin/mineral/dietary (nutritional) supplements, medical marijuana, and recreational) was completed through: Reconciled per MAR at [facility] Current Medications Current Outpatient Medications Medication acetaminophen (TYLENOL) 325 mg tablet amLODIPine (NORVASC) 10 mg tablet aspirin chewable 81 mg tablet atorvastatin (LIPITOR) 40 mg tablet calcium carbonate (TUMS) 200 mg calcium (500 mg) tablet,chewable carvediloL (COREG) 12.5 mg tablet cholecalciferol, Vitamin D3, 25 mcg (1,000 unit) tablet dilTIAZem (CARDIZEM CD) 120 mg capsule heparin 5,000 unit/mL injection insulin glargine 100 unit/mL (3 mL) injection pen insulin lispro (HUMALOG) 100 unit/mL vial insulin pen needles 32G x 532 multivitamin (NEPHROVITE) 0.8 mg tablet oxyCODONE (ROXICODONE) 5 mg immediate release tablet pantoprazole (PROTONIX) 40 mg tablet pregabalin (LYRICA) 100 mg capsule sevelamer hydrochloride (RENAGEL) 800 mg tablet tiZANidine (ZANAFLEX) 4 mg tablet No current facility-administered medications for this visit. Facility-Administered Medications Ordered in Other Visits Medication Route Frequency acetaminophen (TYLENOL) tablet 650 mg oral Q4H PRN heparin injection 9,000 Units intravenous ONCE IN DIALYSIS Marcela Cox RN documented in this encounter Plan of Treatment Upcoming Encounters Date Type Department Care Team (Late st Contact Info) Description 12/06/2024 6:45 EST Treatment [facility] [address] [place], [place] [phone] Carlota Jin MD [address] [phone] 12/08/2024 6:45 EST Treatment [facility] [address] [place], [place] [phone] Carlota Jin MD [address] [phone] 12/11/2024 6:45 EST Treatment [facility] [address] [place], [place] [id number] Carlota Jin MD [address] [phone] 12/13/2024 6:45 EST Treatment [facility] [address] [place], [place] [phone] Carlota Jin MD [address] [phone] 12/15/2024 6:45 EST Treatment [facility] [address] [place], [place] [id number] Carlota Jin MD [address] [phone] 12/18/2024 6:45 EST Treatment [facility] [place] [address] [place], [place] [id number] Carlota Jin MD 1 [facility], Level [address] [place] [phone] 12/20/2024 6:45 EST Treatment [facility] [place] [address] [place] [address] Carlota Jin MD 1 [facility], [facility] 2 [place] [phone] 12/22/2024 6:45 EST Treatment [facility] [place] [address] [place] [address] Carlota Jin MD 1 [facility], [facility] 2 [place] [phone] 12/25/2024 6:45 EST Treatment [facility] [place] [address] [place] [address] Carlota Jin MD 1 [facility], [facility] 2 [place] [phone] 12/27/2024 6:45 EST Treatment [facility] [place] [address] [place], [place] [phone] Carlota Jin MD 1 [facility], [address] [place] [phone] 12/29/2024 6:45 EST Treatment [facility] [place] [address] [place], [place] [id number] Carlota Jin MD 1 [facility], [address] [phone] 01/01/2025 6:45 EDT Treatment [facility] [place] [address] [place], [place] [address] [phone] Carlota Jin MD 1 [facility], [address] [phone] 01/03/2025 6:45 EDT Treatment [facility] [place] [address] [place], [place] [id number] Carlota Jin MD 1 [facility], [address] [phone] 01/05/2025 6:45 EDT Treatment [facility] [place] [address] [place] [address] Carlota Jin MD 1 [facility], [address] [phone] 01/08/2025 6:45 EDT Treatment [facility] [place] [address] [place], [place] [phone] Carlota Jin MD [address] [phone] 01/10/2025 6:45 EDT Treatment [facility] [place] [address] [place], [place] [address] Carlota Jin MD 1 [facility], [address] [phone] 01/12/2025 6:45 EDT Treatment [facility] [place] [address] [place], [place] [phone] Carlota Jin MD 1 [facility], [facility] 2 [place] [phone] 01/15/2025 6:45 EDT Treatment [facility] [place] [address] [place], [place] [id number] Carlota Jin MD 1 [facility], [address] [phone] 01/17/2025 6:45 EDT Treatment [facility] [place] [address] [place], [place] [phone] Carlota Jin MD 1 [facility], [facility] 2 [place] [phone] 01/19/2025 6:45 EDT Treatment [facility] [place] [address] [place], [place] [phone] Carlota Jin MD 1 [facility], [facility] 2 [place] [phone] 01/22/2025 6:45 EDT Treatment [facility] [place] [address] [place], [place] [id number] Carlota Jin MD 1 [facility], [facility] 2 [place] [phone] 01/24/2025 6:45 EDT Treatment [facility] [place] [address] [place], [place] [id number] Carlota Jin MD 1 [facility], [facility] 2 [place] [phone] 01/26/2025 6:45 EDT Treatment [facility] [place] [address] [place], [place] [id number] Carlota Jin MD 1 [facility], [address] [phone] 01/29/2025 6:45 EDT Treatment [facility] [place] [address] [place], [place] [id number] Carlota Jin MD 1 [facility], [address] [phone] 01/31/2025 6:45 EDT Treatment [facility] [place] [address] [place], [place] [id number] Carlota Jin MD 1 [facility], [address] [phone] 02/02/2025 6:45 EDT Treatment [facility] [place] [address] [place], [place] [id number] Carlota Jin MD 1 [facility], [facility] 2 [place] [phone] 02/05/2025 6:45 EDT Treatment [facility] [place] [address] [place], [place] [id number] Carlota Jin MD 1 [facility], [facility] 2 [place] [phone] 02/07/2025 6:45 EDT Treatment [facility] [place] [address] [place], [place] [id number] Carlota Jin MD 1 [facility], [facility] 2 [place] [phone] 02/09/2025 6:45 EDT Treatment [facility] [place] [address] [place], [place] [phone] Carlota Jin MD 1 [facility], [facility] 2 [place] [phone] 02/12/2025 6:45 EDT Treatment [facility] [place] [address] [place], [place] [address] Carlota Jin MD 1 [facility], [facility] 2 [place] [phone] 02/14/2025 6:45 EDT Treatment [facility] [place] [address] [place] [address] Carlota Jin MD 1 [facility], [facility] 2 [place] [phone] 02/16/2025 6:45 EDT Treatment [facility] [place] [address] [place], [place] [id number] Carlota Jin MD 1 [facility], [facility] 2 [place] [phone] 02/19/2025 6:45 EDT Treatment [facility] [place] [address] [place], [place] [id number] Carlota Jin MD 1 [facility], [facility] 2 [place] [phone] 02/21/2025 6:45 EDT Treatment [facility] [place] [address] [place], [place] [phone] Carlota Jin MD 1 [facility], [facility] 2 [place] [phone] documented as of this encounter Visit Diagnoses Not on filedocumented in this encounter Discontinued Medications Medication Sig Discontinue Reason Start Date End Da te dalteparin (FRAGMIN) 5,000 anti-Xa unit/0.2 mL injection Inject 0.2 mL into the skin daily. 1 ml subcutaneous q8 hrs for 26 days Alternate therapy 02/28/2024 apixaban (ELIQUIS) 5 mg tablet Take 1 Tablet by mouth 2 times daily for 90 days. Therapy completed 12/24/2023 02/28/2024 DULoxetine (CYMBALTA) 20 mg delayed release capsule Take 1 Capsule by mouth 2 times daily. Therapy completed 12/03/2023 02/28/2024 famotidine (PEPCID) 40 mg tablet Take 1 Tablet by mouth daily. Therapy completed 02/28/2024 FLOVENT HFA 110 mcg/actuation inhaler Inhale 1 Puff as directed. Therapy completed 03/08/2023 02/28/2024 insulin aspart U-100 (NOVOLOG FLEXPEN) 100 unit/mL (3 mL) injectable pen Units 66-140->0U,141-180->0U, 181-210 ->1U, 211-250->2U, 251-299->3U, > 299 -> 5U Therapy completed 12/24/2023 02/28/2024 LEVEMIR FLEXPEN 100 unit/mL (3 mL) injectable pen Inject 32 Units into the skin daily. Therapy completed 12/24/2023 02/28/2024 nortriptyline (PAMELOR) 25 mg capsule Take 1 Capsule by mouth 3 times daily. Therapy completed 02/28/2024 oxyCODONE-acetaminoph en (PERCOCET) 5-325 mg per tablet TAKE ONE TABLET BY MOUTH TWICE A DAY NEEDED FOR PAIN, MAXIMUM DAILY DOSE = 2 TABLETS Therapy completed 12/15/2023 02/28/2024 polyethylene glycol 3350 (MIRALAX) 17 gram packet Take 17 g by mouth daily as needed for Constipation. Therapy completed 12/24/2023 02/28/2024 SANTYL ointment Therapy completed 12/07/2023 02/28/2024 sildenafil citrate (VIAGRA) 100 mg tablet Take 1 Tablet by mouth as needed. Therapy completed 11/05/2023 02/28/2024 documented as of this encounter Historical Medications * This list may reflect changes made after this encounter. aspirin chewable 81 mg tablet Take 1 Tablet by mouth daily. heparin 5,000 unit/mL injection Inject 1 mL into the skin every 8 hours. For 26 days 03/22/2024 added in this encounter Care Teams Credit Report Checker Relationship Specialty Start Date End Date Ken Greer MD [facility] [place] [address] PCP - General 07/07/23 documented as of this encounter
--- OUTSIDE RECORDS SUMMARY | 2024-12-05 12:07 | XMS_ITS | Encounter Summary ---
Author Organization [facility] Address [address] [place] [address] Care Team Providers Care Ship Fitter Name Role Phone Ken Greer MD Primary Care Provider [phone] Encounter Details Date Type Department Care Team (Late st Contact Info) Description 02/28/2024 Orders Only [facility] [address] [place], [place] [address] Yoanna Dergoot, VIDYA Social History Tobacco Use Types Packs/Day [...] EST Treatment [facility] [place] [address] [place], [place] [phone] Carlota Jin MD 1 [facility], [facility] 2 [place] [phone] 12/08/2024 6:45 EST Treatment [facility] [place] [address] [place], [place] [phone] Carlota Jin MD 1 [facility] 2 [place] [phone] 12/11/2024 6:45 EST Treatment [facility] [place] [address] [place], [place] [id number] Carlota Jin MD 1 [facility], [facility] 2 [place] [phone] 12/13/2024 6:45 EST Treatment [facility] [address] [place], [place] [id number] Carlota Jin MD 1 [facility], [facility] 2 [place] [phone] 12/15/2024 6:45 EST Treatment [facility] [place] [address] [place], [place] [id number] Carlota Jin MD 1 [facility], [facility] 2 [place] [phone] 12/18/2024 6:45 EST Treatment [facility] [place] [address] [place], [place] [id number] Carlota Jin MD 1 [facility], [facility] 2 [place] [phone] 12/20/2024 6:45 EST Treatment [facility] [place] [address] [place], [place] [id number] Carlota Jin MD 1 [facility], [facility] 2 [place] [phone] 12/22/2024 6:45 EST Treatment [facility] [address] [place], [place] [id number] Carlota Jin MD 1 [facility], [facility] [address] [place] [phone] 12/25/2024 6:45 EST Treatment [facility] [address] [place], [place] [id number] Carlota Jin MD 1 [facility], [facility] [address] [place] [phone] 12/27/2024 6:45 EST Treatment [facility] [place] [address] [place], [place] [id number] Carlota Jin MD 1 [facility], [facility] 2 [place] [phone] 12/29/2024 6:45 EST Treatment [facility] [place] [address] [place], [place] [id number] Carlota Jin MD 1 [facility], [address] [phone] 01/01/2025 6:45 EDT Treatment [facility] [place] [address] [place], [place] [id number] Carlota Jin MD 1 [facility], [address] [phone] 01/03/2025 6:45 EDT Treatment [facility] [place] [address] [place], [place] [id number] Carlota Jin MD 1 [facility], [address] [phone] 01/05/2025 6:45 EDT Treatment [facility] [place] [address] [place], [place] [id number] Carlota Jin MD [address] [place] [address], [facility] 2 [place] [phone] 01/08/2025 6:45 EDT Treatment [facility] [place] [address] [place], [place] [id number] Carlota Jin MD 1 [facility], [address] [place] [phone] 01/10/2025 6:45 EDT Treatment [facility] [place] [address] [place], [place] [id number] Carlota Jin MD 1 [facility], [facility] 2 [place] [phone] 01/12/2025 6:45 EDT Treatment [facility] [place] [address] [place], [place] [id number] Carlota Jin MD 1 [facility], [facility] 2 [place] [phone] 01/15/2025 6:45 EDT Treatment [facility] [place] [address] [place], [place] [id number] Carlota Jin MD 1 [facility], [facility] 2 [place] [phone] 01/17/2025 6:45 EDT Treatment [facility] [address] [place], [place] [id number] Carlota Jin MD 1 [facility], [facility] 2 [place] [phone] 01/19/2025 6:45 EDT Treatment [facility] [address] [place], [place] [id number] Carlota Jin MD 1 [facility], [facility] 2 [place] [phone] 01/22/2025 6:45 EDT Treatment [facility] [place] [address] [place], [place] [id number] Carlota Jin MD 1 [facility], [facility] 2 [place] [phone] 01/24/2025 6:45 EDT Treatment [facility] [place] [address] [place], [place] [id number] Carlota Jin MD 1 [facility], [facility] 2 [place] [phone] 01/26/2025 6:45 EDT Treatment [facility] [place] [address] [place], [place] [id number] Carlota Jin MD 1 [facility], [facility] 2 [place] [phone] 01/29/2025 6:45 EDT Treatment [facility] [place] [address] [place], [place] [id number] Carlota Jin MD 1 [facility], [facility] 2 [place] [phone] 01/31/2025 6:45 EDT Treatment [facility] [place] [address] [place], [place] [id number] Carlota Jin MD 1 [facility], [facility] 2 [place] [phone] 02/02/2025 6:45 EDT Treatment [facility] [place] [address] [place], [place] [phone] Carlota Jin MD 1 [facility], [facility] 2 [place] [phone] 02/05/2025 6:45 EDT Treatment [facility] [place] [address] [place], [place] [id number] Carlota Jin MD 1 [facility], [facility] 2 [place] [phone] 02/07/2025 6:45 EDT Treatment [facility] [place] [address] [place] [address] Carlota Jin MD 1 [facility], [address] [phone] 02/09/2025 6:45 EDT Treatment [facility] [place] [address] [place], [place] [id number] Carlota Jin MD 1 [facility], [address] [phone] 02/12/2025 6:45 EDT Treatment [facility] [place] [address] [place] [address] Carlota Jin MD 1 [facility], [facility] 2 [place] [phone] 02/14/2025 6:45 EDT Treatment [facility] [place] [address] [place], [place] [id number] Carlota Jin MD 1 [facility], [facility] 2 [place] [phone] 02/16/2025 6:45 EDT Treatment [facility] [address] [place], [place] [id number] Carlota Jin MD 1 [facility], [facility] 2 [place] [phone] 02/19/2025 6:45 EDT [facility] [address] [place], [place] [id number] Carlota Jin MD [address] [place] [address], [facility] 2 [place] [phone] 02/21/2025 6:45 EDT Treatment [facility] [address] [place], [place] [id number] Carlota Jin MD [address] [place] [address], [facility] 2 [place] [phone] documented as of this encounter Visit Diagnoses Not on filedocumented in this encounter Care Teams Ship Fitter Relationship Specialty Start Date End Date [place] [address] PCP - General 07/07/23 documented as of this encounter
--- OUTSIDE RECORDS SUMMARY | 2024-12-05 12:07 | XMS_ITS | Encounter Summary ---
Author Organization [facility] Address [address] [place] [address] Care Team Providers Care Division Service Manager Name Role Phone Ken Greer MD Primary Care Provider [phone] Kiel Powers Unavailable Unavailable Reason for Visit * Reason Onset Date Comments Appointment Related 02/28/2024 Encounter Details Date Type Department Care Team (Late st Contact Info) Description 02/28/2024 Telephone [facility] Transplant - [address] [id number] Transplant, Nurse Appointment Related Social History Tobacco Use Types [...] encounter Miscellaneous Notes * Telephone Encounter - Susana Gresham - 02/28/2024 1313 EDT Pt had to have his Foot amputated this weekend not going to make appt would like a call back to reschedule documented in this encounter Plan of Treatment Upcoming Encounters Date Type Department Care Team (Late st Contact Info) Description 12/06/2024 6:45 EST Treatment [facility] [place] - [place] [address] [place], [place] [id number] Carlota Jin MD [address] [place] [address], [facility] [address] [place] [phone] 12/08/2024 6:45 EST Treatment [facility] [place] [address] [place] [address] [place] [address] Carlota Jin MD [address] [place] [address], [facility] 2 [place] [phone] 12/11/2024 6:45 EST Treatment [facility] [place] - [place] [address] [place] [id number] Carlota Jin MD 1 [facility], [facility] 2 [place] [phone] 12/13/2024 6:45 EST Treatment [facility] [place] - [place] [address] [place], [place] [id number] Carlota Jin MD 1 [facility], [facility] 2 [place] [phone] 12/15/2024 6:45 EST Treatment [facility] [place] [address] [place] [address] Carlota Jin MD 1 [facility], [address] [phone] 12/18/2024 6:45 EST Treatment [facility] [place] - [place] [address] [place], [place] [id number] Carlota Jin MD 1 [facility], [address] [phone] 12/20/2024 6:45 EST Treatment [facility] [place] [address] [place] [address] Carlota Jin MD 1 [facility], [facility] [address] [place] [phone] 12/22/2024 6:45 EST Treatment [facility] [place] - [place] [address] [place], [place] [id number] Carlota Jin MD 1 [facility], [facility] 2 [place] [phone] 12/25/2024 6:45 EST Treatment [facility] [place] - [place] [address] [place], [place] [id number] Carlota Jin MD 1 [facility], [facility] [address] [place] [phone] 12/27/2024 6:45 EST Treatment [facility] [place] [address] [place], [place] [id number] Carlota Jin MD 1 [facility], [facility] [address] [place] [phone] 12/29/2024 6:45 EST Treatment [facility] [place] - [place] [address] [place], [place] [id number] Carlota Jin MD 1 [facility], [facility] 2 [place] [phone] 01/01/2025 6:45 EDT Treatment [facility] [place] [address] [place] [address] Carlota Jin MD 1 [facility], [facility] 2 [place] [phone] 01/03/2025 6:45 EDT Treatment [facility] [place] - [place] [address] [place], [place] [id number] Carlota Jin MD 1 [facility], [facility] 2 [place] [phone] 01/05/2025 6:45 EDT Treatment [facility] [place] - [place] [address] [place], [place] [id number] Carlota Jin MD 1 [facility], [facility] 2 [place] [phone] 01/08/2025 6:45 EDT Treatment [facility] [place] - [place] [address] [place], [place] [id number] Carlota Jin MD 1 [facility], [address] [phone] 01/10/2025 6:45 EDT Treatment [facility] [place] - [place] [address] [place], [place] [id number] Carlota Jin MD 1 [facility], [address] [phone] 01/12/2025 6:45 EDT Treatment [facility] [place] - [place] [address] [place], [place] [id number] Carlota Jin MD 1 [facility], [address] [phone] 01/15/2025 6:45 EDT Treatment [facility] [place] - [place] [address] [place], [place] [id number] Carlota Jin MD 1 [facility], [facility] 2 [place] [phone] 01/17/2025 6:45 EDT Treatment [facility] [place] - [place] [address] [place], [place] [id number] Carlota Jin MD 1 [facility], [facility] 2 [place] [phone] 01/19/2025 6:45 EDT Treatment [facility] [place] - [place] [address] [place], [place] [id number] Carlota Jin MD 1 [facility], [facility] 2 [place] [phone] 01/22/2025 6:45 EDT Treatment [facility] [place] - [place] [address] [place], [place] [id number] Carlota Jin MD 1 [facility], [facility] 2 [place] [phone] 01/24/2025 6:45 EDT Treatment [facility] [place] [address] [place] [address] Carlota Jin MD 1 [facility], [address] [phone] 01/26/2025 6:45 EDT Treatment [facility] [place] - [place] [address] [place], [place] [id number] Carlota Jin MD 1 [facility], [facility] 2 [place] [phone] 01/29/2025 6:45 EDT Treatment [facility] [place] - [place] [address] [place], [place] [id number] Carlota Jin MD 1 [facility], [facility] 2 [place] [phone] 01/31/2025 6:45 EDT Treatment [facility] [place] - [place] [address] [place], [place] [address] Carlota Jin MD 1 [facility], [facility] 2 [place] [phone] 02/02/2025 6:45 EDT Treatment [facility] [place] - [place] [address] [place], [place] [id number] Carlota Jin MD 1 [facility], [facility] 2 [place] [phone] 02/05/2025 6:45 EDT Treatment [facility] [place] [address] [place] [address] Carlota Jin MD 1 [facility], [address] [phone] 02/07/2025 6:45 EDT Treatment [facility] [place] - [place] [address] [place], [place] [id number] Carlota Jin MD [address] [phone] 02/09/2025 6:45 EDT Treatment [facility] [place] - [place] [address] [place], [place] [id number] Carlota Jin MD [address] [phone] 02/12/2025 6:45 EDT Treatment [facility] [place] - [place] [address] [place], [place] [id number] Carlota Jin MD 1 [facility] 2 [place] [phone] 02/14/2025 6:45 EDT Treatment [facility] D[facility]ysi [facility] [address] [place], [place] [id number] Carlota Jin MD 1 [facility], [facility] 2 [place] [phone] 02/16/2025 6:45 EDT Treatment [facility] Dialysi [facility] [address] [place], [place] [id number] Carlota Jin MD 1 [facility], [address] [phone] 02/19/2025 6:45 EDT Treatment [facility] [address] [place], [place] [id number] Carlota Jin MD 1 [facility], [address] [phone] 02/21/2025 6:45 EDT Treatment [facility] [address] [place], [place] [id number] Carlota Jin MD [address] [place] [address], [address] [phone] documented as of this encounter Visit Diagnoses Not on filedocumented in this encounter Additional Health Concerns Infection Onset Date Last Indicated Resolved Time COVID-19 Comment:Collected @ [facility]. 03/12/2024 03/13/2024 04/01/2024 22: 15 EDT R/O COVID-19 05/30/2024 05/30/2024 05/30/2024 20:5 0 EDT documented as of this encounter Care Teams Division Service Manager Relationship Specialty Start Date End Date Ken Greer MD [address] [place] [address] PCP - General 07/07/23 Kiel Powers Review Trainer Nephrology 05/31/24 documented as of this encounter
--- OUTSIDE RECORDS SUMMARY | 2024-12-05 12:07 | XMS_ITS | Encounter Summary ---
Author Organization [facility] Address [address] [place] [address] Care Team Providers Care Clearing Supervisor Name Role Phone Kne Greer MD Primary Care Provider [phone] Encounter Details Date Type Department Care Team (Late st Contact Info) Description 02/28/2024 Documentation Visit [facility] [address] [place] [address] Alexa Estrada [facility] [address] [place] [address] Social History Tobacco Use Types Packs/Day Years [...] this encounter Progress Notes * Natalie Alexa, DOOR TO DOOR SELLING AGENT - 02/28/2024 1150 EDT Manual Arts Teacher's Monthly Assessment UPDATE: SW met with pt following dialysis. Pt is back from [facility] and had an amputation. Pt is in a w/c and looks much more alert than he has for several weeks. Pt is more AAO and able to converse with this SW. Pt's is bringing him to and from [facility] to dialysis. They have concern about a wound on the other foot and it is being monitored. Xander's is working on applying for Medicaid LTC. SW had started it with her before and has kept the documents on file- SW let her know that these documents are still available to her so she does not have to complete them again. SHANNON will continue to monitor and provide support. Current Living Situation: Currently at [facility]. Usually Lives with family and Lives with friends Lives with family Pt lives with his , [place], intgigiir apartment in [place]. He rents the apartment and has a shared kitchen with the other tenant. The apartment has a back entry to his room and bathroom, but in order to get to the kitchen he has to go up 13 stairs which is difficult due to knee pain. He has land which he is planning on building a home on. Transportation Status: Transportation: Drives Self Change in Physical/Medical Status and Hospitalization Change in physical or medical status: Yes: pt is now using a wheelchair and walker to ambulate. He feels he has declined physically and is requiring care. Hospitalization in Previous 3 Months: Yes: 12/22-12/23 and 11/07-11/10 for diabetic foot infection, Covid + Emergency Room Visit in Previous 3 Months: Yes 12/22 Mental Health: Change in cognitive function? No Current or past mental health issues including feelings of anxiety or depression: Yes: anxiety Previous mental health diagnosis? No Past or current suicidal thinking/attempt? 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 [place] [phone] 12/08/2024 6:45 EST Treatment [facility] [place] [address] [place] [address] Carlota Jin MD 1 [facility] [address] [place] [phone] 12/11/2024 6:45 EST Treatment [facility] [place] [address] [place] [address] Carlota Jin MD 1 [facility], [facility] [place] [phone] 12/13/2024 6:45 EST Treatment [facility] [place] [place] [address] [place] [address] Carlota Jin MD 1 [facility], [facility] [address] [place] [phone] 12/15/2024 6:45 EST Treatment [facility] [address] [place] [address] Carlota Jin MD [address] [facility] [address] [place] [phone] 12/18/2024 6:45 EST Treatment [facility] [place] - [place] [address] [place], [place] [id number] Carlota Jin MD [address] [facility] [place] [phone] 12/20/2024 6:45 EST Treatment [facility] [place] - [place] [address] [place], [place] [id number] Carlota Jin MD 1 [facility], Level [address] [place] [phone] 12/22/2024 6:45 EST Treatment [facility] [place] - [place] [address] [place], [place] [id number] Carlota Jin MD [address] [facility] [address] [place] [phone] 12/25/2024 6:45 EST Treatment [facility] [place] - [place] [address] [place] [address] Carlota Jin MD 1 [facility], [facility] [place] [phone] 12/27/2024 6:45 EST Treatment [facility] [place] [address] [place], [place] [id number] Carlota Jin MD [address] [facility] [place] [phone] 12/29/2024 6:45 EST Treatment [facility] - [place] [address] [place], [place] [id number] Carlota Jin MD [address] [facility], Level [address] [place] [phone] 01/01/2025 6:45 EDT Treatment [facility] [place] [address] [place], [place] [id number] Carlota Jin MD 1 [facility], [facility] [place] [phone] 01/03/2025 6:45 EDT Treatment [facility] [place] [address] [place] [address] Carlota Jin MD 1 [facility], [facility] [address] [place] [phone] 01/05/2025 6:45 EDT Treatment [facility] - [place] [address] [place], [place] [id number] Carlota Jin MD 1 [facility], [address] [phone] 01/08/2025 6:45 EDT Treatment [facility] - [place] [address] [place], [place] [id number] Carlota Jin MD 1 [facility], [address] [phone] 01/10/2025 6:45 EDT Treatment [facility] [place] [address] [place], [place] [id number] Carlota Jin MD 1 [facility], [address] [phone] 01/12/2025 6:45 EDT Treatment [facility] [place] [address] [place], [place] [id number] Carlota Jin MD [address] [facility] [place] [phone] 01/15/2025 6:45 EDT Treatment [facility] [place] [address] [place], [place] [id number] Carlota Jin MD 1 [facility], [facility] [place] [phone] 01/17/2025 6:45 EDT Treatment [facility] - [place] [address] [place], [place] [id number] Carlota Jin MD 1 [facility], [facility] [address] [place] [phone] 01/19/2025 6:45 EDT Treatment [facility] [address] [place] [address] Carlota Jin MD 1 [facility], [facility] [address] [place] [phone] 01/22/2025 6:45 EDT Treatment [facility] [address] [place], [place] [id number] Carlota Jin MD 1 [facility], [facility] [address] [place] [phone] 01/24/2025 6:45 EDT Treatment [facility] [address] [place], [place] [id number] Carlota Jin MD 1 [facility], [facility] [address] [place] [phone] 01/26/2025 6:45 EDT Treatment [facility] [facility] [place] [address] [place], [place] [address] Carlota Jin MD 1 [facility], [facility] [address] [place] [phone] 01/29/2025 6:45 EDT Treatment [facility] [place] [address] [place], [place] [id number] Carlota Jin MD 1 [facility], [facility] [address] [place] [phone] 01/31/2025 6:45 EDT Treatment [facility] [place] [address] [place], [place] [id number] Carlota Jin MD 1 [facility], [facility] [address] [place] [phone] 02/02/2025 6:45 EDT Treatment [facility] [place] - [place] [address] [place], [place] [id number] Carlota Jin MD 1 [facility], [facility] [address] [place] [phone] 02/05/2025 6:45 EDT Treatment [facility] [place] - [place] [address] [place], [place] [id number] Carlota Jin MD 1 [facility], [facility] [address] [place] [phone] 02/07/2025 6:45 EDT Treatment [facility] - [place] [address] [place], [place] [id number] Carlota Jin MD 1 [facility], [facility] [place] [phone] 02/09/2025 6:45 EDT Treatment [facility] [address] [place], [place] [address] Carlota Jin MD 1 [facility] [address] [place] [phone] 02/12/2025 6:45 EDT Treatment [facility] - [place] [address] [place], [place] [id number] Carlota Jin MD 1 [facility], [facility] [address] [place] [phone] 02/14/2025 6:45 EDT Treatment [facility] [place] - [place] [address] [place], [place] [id number] Carlota Jin MD 1 [facility], [facility] [address] [place] [phone] 02/16/2025 6:45 EDT Treatment [facility] [place] [address] [place] [address] Carlota Jin MD [address] [facility] [address] [place] [phone] 02/19/2025 6:45 EDT Treatment [facility] - [place] [address] [place], [place] [id number] Carlota Jin MD [address] [facility] [address] [place] [phone] 02/21/2025 6:45 EDT Treatment [facility] [place] [address] [place], [place] [address] Carlota Jin MD 1 [facility], Level [address] [place] [phone] documented as of this encounter Visit Diagnoses Not on filedocumented in this encounter Care Teams Clearing Supervisor Relationship Specialty Start Date End Date Ken Greer MD [facility] [place] [address] PCP - General 07/07/23 documented as of this encounter
--- OUTSIDE RECORDS SUMMARY | 2024-12-05 12:07 | XMS_ITS | Encounter Summary ---
Author Organization [facility] Address [address] [place] [address] Care Team Providers Care Private Mortgage Banker Safe Name Role Phone Ken Greer MD Primary Care Provider [phone] Encounter Details Date Type Department Care Team (Latest Contact Info) Description 02/28/2024 6:[address] [facility] [address] [place], [place] [id number] Carlota Jin MD 1 [facility], [address] [place] [address] ESRD (end stage renal disease) ([facility]) (Primary Dx); Anemia of chronic renal failure, unspecified CKD stage; Hypoalbuminemia; Secondary hyperparathyroidism ([facility]) Social History Tobacco Use Types [...] - Temperature - - Respiratory Rate 16 02/28/2024 0630 EDT Oxygen Saturation - - Inhaled Oxygen Concentration - - Weight 85.9 kg (189 lb 6 oz) 02/28/2024 0632 EDT Height - - Body Mass Index 27.17 12/20/2023 2202 EST documented in this encounter [...] Flowsheet Note - Marcela Cox RN - 02/28/2024 1255 EDT 02/28/24 1055 Post-Hemodialysis Assessment Total Blood Processed (L) 36.6 Liters On Line Clearance: spKt/V 1.36 spKt/V Dialyzer Clearance Lightly streaked Treatment UFR (ml:kg:hr) 7.34 ml:kg:hr Final Critline Profile (%/hr) -0.69 Final Profile Profile A Critline refill Not done Fluid Removed (L) 1.81 L Post-Dialysis Scale Weight 104.4 kg (230 lb 2.6 oz) Wheelchair Weight 20.9 kg (46 lb 1.2 oz) Prosthesis Weight 0 kg (0 lb) Post-Treatment Weight (kg) 83.5 Treatment Weight Change (kg) 2.4 kg Day Target Weight (kg) 84.9 Post Sitting/Lying BP 136/71 Post Sitting/Lying pulse 70 Temp 36.5 ??C (97.7 ??F) Temp src Temporal Post access assessment AVF/AFG Hemostasis achieved Yes Note 10 minute hold with blue clamps Orientation Alert and Oriented x3 Yes Time Yes Place Yes Person Yes Cooperative Yes Disoriented No Discharge Ambulation Methods Departs via w/c Wrap up items Patient Response to Treatment Removed 1.8L UF goal without difficulty. UF goal adjusted per crit line, vital signs and pt tolerance. Comments no concerns voiced post tx. * Dialysis Rounding - Carlota Jin MD - 02/28/2024 06 EDT Dialysis Provider's Routine Assessment Gerson Bruner was seen and examined as appropriate during Dialysis. Pertinent lab results were reviewed. 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 He is on Lyrica 100 mg BID. This is not renally dosed. He should be taking a total of 75 mg/day with an extra 100 mg to be given right after dialysis. I will need to discuss this withmelissa Jin MD documented in this encounter Plan of Treatment Upcoming Encounters Date Type Department Care Team (Late st Contact Info) Description 12/06/2024 6:[address] [facility] [address] [place], [place] [phone] Carlota Jin MD 1 [facility], [address] [place] [phone] 12/08/2024 6:45 EST Treatment [facility] [place] [address] [place], [place] [id number] Carlota Jin MD 1 [facility], [facility] 2 [place] [phone] 12/11/2024 6:45 EST Treatment [facility] [place] [address] [place], [place] [phone] Carlota Jin MD [facility], [address] [phone] 12/13/2024 6:45 EST Treatment [facility] [place] [address] [place], [place] [phone] Carlota Jin MD 1 [facility], [address] [phone] 12/15/2024 6:45 EST Treatment [facility] [place] [address] [place], [place] [phone] Carlota Jin MD [address] [phone] 12/18/2024 6:45 EST Treatment [facility] [address] [place], [place] [phone] Carlota Jin MD [address] [phone] 12/20/2024 6:45 EST Treatment [facility] [place] [address] [place], [place] [phone] Carlota Jin MD 1 [facility], [facility] 2 [place] [phone] 12/22/2024 6:45 EST Treatment [facility] [place] [address] [place], [place] [phone] Carlota Jin MD 1 [facility], [facility] 2 [place] [phone] 12/25/2024 6:45 EST Treatment [facility] [place] [address] [place], [place] [phone] Carlota Jin MD 1 [facility], [address] [phone] 12/27/2024 6:45 EST Treatment [facility] [place] [address] [place] [address] Carlota Jin MD 1 [facility], [facility] 2 [place] [phone] 12/29/2024 6:45 EST Treatment [facility] [place] [address] [place], [place] [phone] Carlota Jin MD [facility], [facility] 2 [place] [phone] 01/01/2025 6:45 EDT Treatment [facility] [place] [address] [place], [place] [id number] Carlota Jin MD 1 [facility], [facility] 2 [place] [phone] 01/03/2025 6:45 EDT Treatment [facility] [place] [address] [place], [place] [address] Carlota Jin MD 1 [facility], [facility] 2 [place] [phone] 01/05/2025 6:45 EDT Treatment [facility] [place] [address] [place], [place] [phone] Carlota Jin MD 1 [facility], [facility] 2 [place] [phone] 01/08/2025 6:45 EDT Treatment [facility] [place] [address] [place], [place] [phone] Carlota Jin MD 1 [facility], [facility] 2 [place] [phone] 01/10/2025 6:45 EDT Treatment [facility] [place] [address] [place], [place] [phone] Carlota Jin MD 1 [facility], [address] [phone] 01/12/2025 6:45 EDT Treatment [facility] [place] [address] [place], [place] [phone] Carlota Jin MD 1 [facility], [facility] 2 [place] [phone] 01/15/2025 6:45 EDT Treatment [facility] [place] [address] [place], [place] [phone] Carlota Jin MD 1 [facility] 2 [place] [phone] 01/17/2025 6:45 EDT Treatment [facility] [place] [address] [place], [place] [phone] Carlota Jin MD 1 [facility], [facility] 2 [place] [phone] 01/19/2025 6:45 EDT Treatment [facility] [place] [address] [place], [place] [phone] Carlota Jin MD 1 [facility], [facility] 2 [place] [phone] 01/22/2025 6:45 EDT Treatment [facility] [place] [address] [place], [place] [phone] Carlota Jin MD 1 [facility], [facility] 2 [place] [phone] 01/24/2025 6:45 EDT Treatment [facility] [place] [address] [place], [place] [phone] Carlota Jin MD 1 [facility], [facility] 2 [place] [phone] 01/26/2025 6:45 EDT Treatment [facility] [address] [place], [place] [phone] Carlota Jin MD 1 [facility], [facility] 2 [place] [phone] 01/29/2025 6:45 EDT Treatment [facility] [place] [address] [place], [place] [phone] Calrota Jin MD 1 [facility], [facility] 2 [place] [phone] 01/31/2025 6:45 EDT Treatment [facility] [place] [address] [place], [place] [phone] Carlota Jin MD 1 [facility], [address] [phone] 02/02/2025 6:45 EDT Treatment [facility] [place] [address] [place], [place] [phone] Carlota Jin MD 1 [facility], [address] [phone] 02/05/2025 6:45 EDT Treatment [facility] - [place] [address] [place], [place] [phone] Carlota Jin MD 1 [facility], [facility] 2 [place] [phone] 02/07/2025 6:45 EDT Treatment [facility] [place] [address] [place], [place] [phone] Carlota Jin MD 1 [facility], [facility] 2 [place] [phone] 02/09/2025 6:45 EDT Treatment [facility] [place] [address] [place], [place] [phone] Carlota Jin MD 1 [facility], [facility] 2 [place] [phone] 02/12/2025 6:45 EDT Treatment [facility] [place] [address] [place], [place] [phone] Carlota Jin MD 1 [facility], [facility] 2 [place] [phone] 02/14/2025 6:45 EDT Treatment [facility] [place] [address] [place] [address] Carlota Jin MD 1 [facility], [facility] 2 [place] [phone] 02/16/2025 6:45 EDT Treatment [facility] [place] [address] [place] [address] Carlota Jin MD 1 [facility], [facility] 2 [place] [phone] 02/19/2025 6:45 EDT Treatment [facility] [place] [address] [place] [address] Carlota Jin MD 1 [facility], [facility] 2 [place] [phone] 02/21/2025 6:45 EDT Treatment [facility] [place] [address] [place], [place] [phone] Carlota Jin MD 1 [facility], [facility] 2 [place] [phone] (work) documented as of this encounter Procedures Procedure Name Priority Date/Time Associated Diagnosis Comments POSTDIALYSIS BUN WITH URR CALCULATION Routine 02/28/2024 12:26 EDT ESRD (end stage renal disease) ([facility]) TRANSFERRIN SATURATION Routine 02/28/2024 6:41 EDT ESRD (end stage renal disease) ([facility]) DIALYSIS ROUTINE - DIALYSIS ONLY (BUN, K, NA, CL, CO2, SANJEEV, ALB, MG, PHOS, ALKP, AST) Routine 02/28/2024 6:41 EDT ESRD (end stage renal disease) ([facility]) PROFILE IRON STUDIES (INCLUDES IRON, IBC, AND FERRITIN) Routine 02/28/2024 6:41 EDT ESRD (end stage renal disease) ([facility]) COMPLETE BLOOD COUNT Routine 02/28/2024 6:41 EDT ESRD (end stage renal disease) ([facility]) FERRITIN Routine 02/28/2024 6:41 EDT ESRD (end stage renal disease) ([facility]) HEMODIALYSIS Routine 02/28/2024 6:30 EDT ESRD (end stage renal disease) ([facility]) documented in this encounter Results * (ABNORMAL) POSTDIALYSIS BUN WITH URR CALCULATION (02/28/2024 12:26 EDT) BUN, Postdialysis 19 10 - 26 mg/dL 02/28/2024 22:12 EDT [facility] Urea Reduction Rate 64.2 Not Established % 02/28/2024 22:12 T [facility] Comment: NOTE: Reference range not established for Urea Reduction Rate. BUN 53(H) 10 - 26 mg/dL 02/28/2024 22:12 EDT [facility] Blood VENOUS BLOOD / Unknown Venipuncture / Unknown 02/28/2024 12:26 EDT 02/28/2024 12:26 EDT Skye Gomez SCALE AND SKIP CAR OPERATOR CHEMISTRY & BLOOD GAS ORDER FRANSISCO Final Result Performing Organization Address [facility]/ZIP Co de Phone Number [facility] [address] [place] [address] * (ABNORMAL) FERRITIN (02/28/2024 6:41 EDT) Ferritin 978(H) 22 - 322 ng/mL 02/28/2024 23:01 EDT [facility] Blood VENOUS BLOOD / Unknown Venipuncture / Unknown 02/28/2024 6:41 EDT 02/28/2024 6:41 EDT Skye Gomez SCALE AND SKIP CAR OPERATOR CHEMISTRY & BLOOD GAS ORDER FRANSISCO Final Result Performing Organization Address [facility] de Phone Number [facility] [address] [place] [address] * (ABNORMAL) TRANSFERRIN SATURATION (02/28/2024 6:41 EDT) Iron 36(L) 49 - 181 ??g/dL 02/28/2024 22:11 EDT [facility] Iron Binding Capacity 164(L) 240 - 450 ??g/dL 02/28/2024 22:11 EDT [facility] Transferrin Saturation 22 15 - 45 % 02/28/2024 22:11 EDT [facility] Blood VENOUS BLOOD / Unknown Venipuncture / Unknown 02/28/2024 6:41 EDT 02/28/2024 6:41 EDT Skye Gomez SCALE AND SKIP CAR OPERATOR CHEMISTRY & BLOOD GAS ORDER FRANSISCO Final Result Performing Organization Address [facility] Co de Phone Number [facility] [address] [place] [address] * (ABNORMAL) DIALYSIS ROUTINE - DIALYSIS ONLY (BUN, K, NA, CL, CO2, SANJEEV, ALB, MG, PHOS, ALKP, AST) (02/28/2024 6:41 EDT) Sodium 134(L) 136 - 145 mmol/L 02/28/2024 22:02 [facility] Potassium 6.7(H) 3.5 - 5.0 mmol/L 02/28/2024 22:02 [facility] Chloride 98 96 - 110 mmol/L 02/28/2024 22:02 [facility] CO2 Total 25 22 - 32 mmol/L 02/28/2024 22:02 [facility] Calcium 8.7 8.5 - 10.5 mg/dL 02/28/2024 22:02 [facility] Albumin 2.6(L) 3.4 - 4.9 g/dL 02/28/2024 22:02 [facility] Phosphorus 6.2(H) 2.5 - 4.5 mg/dL 02/28/2024 22:02 [facility] Calcium Phos Product 53.9 See Note mg/dL 02/28/2024 22:02 [facility] Comment: NOTE: Reference range not established BUN, Predialysis 53(H) 10 - 26 mg/dL 02/28/2024 22:02 [facility] AST 25 15 - 46 U/L 02/28/2024 22:02 [facility] Alkaline Phosphatase 148(H) 38 - 126 U/L 02/28/2024 22:02 [facility] Magnesium 2.1 1.7 - 2.8 mg/dL 02/28/2024 22:02 [facility] Anion Gap 11 5 - 14 mmol/L 02/28/2024 22:02 [facility] Calculated Calcium 9.8 8.9 - 10.5 mg/dL 02/28/2024 22:02 [facility] Blood VENOUS BLOOD / Unknown Venipuncture / Unknown 02/28/2024 6:41 EDT 02/28/2024 6:41 EDT us Skye Gomez NP CHEMISTRY & BLOOD GAS ORDER FRANSISCO Final Result [facility] [address] [place] [address] * (ABNORMAL) COMPLETE BLOOD COUNT (02/28/2024 6:41 EDT) WBC 11.28(H) 4.00 - 10.40 K/cmm 02/28/2024 22:07 [facility] RBC 2.81(L) 4.36 - 5.78 M/cmm 02/28/2024 22:07 [facility] Hemoglobin 8.0(L) 13.8 - 17.3 g/dL 02/28/2024 22:07 [facility] HCT 25.6(L) 39.5 - 50.2 % 02/28/2024 22:07 [facility] MCV 91 81 - 95 fL 02/28/2024 22:07 [facility] MCH 28.5 27.6 - 33.0 pg 02/28/2024 22:07 [facility] MCHC 31.3(L) 32.8 - 36.4 g/dL 02/28/2024 22:07 [facility] RDW-CV 15.0(H) <14.2 % 02/28/2024 22:07 [facility] RDW-SD 50.1(H) <46.0 fl 02/28/2024 22:07 [facility] PLT 547(H) 141 - 377 K/cmm 02/28/2024 22:07 [facility] MPV 11.4 9.5 - 12.7 fL 02/28/2024 22:07 [facility] Blood VENOUS BLOOD / Unknown Venipuncture / Unknown 02/28/2024 6:41 EDT 02/28/2024 6:41 EDT Skye Gomez SCALE AND SKIP CAR OPERATOR HEMATOLOGY & PF4 ORDERABLES Final Result [facility] [address] [place] [address] documented in this encounter Visit Diagnoses Diagnosis ESRD (end stage renal disease) ([facility] Primary End stage renal disease Anemia of chronic renal failure, unspecified CKD stage Hypoalbuminemia Other disorders of plasma protein metabolism Secondary hyperparathyroidism ([facility]) Secondary hyperparathyroidism (of renal origin) documented in this encounter Administered Medications Inactive Administered Medications - up to 3 most recent administrations Medication Order MAR Action Action Date Dose Rate Site acetaminophen (TYLENOL) tablet 650 mg 650 mg, oral, EVERY 4 HOURS PRN, Starting on Wed02/28/24 at 0638, Until Wed02/28/24 at 1529, Pain, Routine, DialysisIndications:ESRD (end stage renal disease) ([facility]) Given 02/28/2024 7:08 EDT 650 mg calcium carbonate (TUMS) tablet 500 mg (200 mg elemental calcium) 2 Tablet 2 Tablet, oral, ONCE IN DIALYSIS, 1 dose, On Wed02/28/24 at 0700, Routine, DialysisIndications:ESRD (end stage renal disease) ([facility]),Secondary hyperparathyroidism ([facility]) Given 02/28/2024 7:08 EDT 2 Tablets epoetin ken (EPOGEN) 20,000 unit/2 mL injection 5,000 Units 5,000 Units, intravenous, ONCE IN DIALYSIS, 1 dose, On Wed02/28/24 at 0700, Routine, DialysisIndications:ESRD (end stage renal disease) ([facility]),Anemia of chronic renal failure, unspecified CKD stage Given 02/28/2024 7:08 EDT 5,000 Units LiquaCel liquid protein liquid 30 mL 30 mL, oral, ONCE IN DIALYSIS, 1 dose, On Wed02/28/24 at 0700, Patient's flavor preference: either, RoutineIndications:ESRD (end stage renal disease) ([facility]),Hypoalbuminemia Given 02/28/2024 7:08 EDT 30 mL documented in this encounter Orders Medications Ordered That Davide ht Not Have Been Administered Count Last Ordered Date First Ordered Date heparin injection 9,000 Units 1 02/28/2024 Dialysis Count Last Ordered Date First Orde red Date HEMODIALYSIS 1 02/28/2024 documented in this encounter Care Teams Private Mortgage Banker Safe Relationship Specialty Start Date End Date Ken Greer MD [address] [place] [address] PCP - General 07/07/23 documented as of this encounter
--- OUTSIDE RECORDS SUMMARY | 2024-12-05 12:07 | XMS_ITS | Encounter Summary ---
Author Organization [facility] Address [address] [place] [address] Care Team Providers Care Engraver Pantograph Name Role Phone Ken Greer MD Primary Care Provider [phone] Encounter Details Date Type Department Care Team (Latest Contact Info) Description 03/10/2024 6:45 EDT Treatment [facility] [address] [place], [place] [id number] Carlota Jin MD 1 [facility], Level 2 [place] [address] ESRD (end stage renal disease) ([facility]) (Primary Dx); Anemia of chronic renal failure, unspecified CKD stage; Hypoalbuminemia; Secondary hyperparathyroidism ([facility]) Social History Tobacco Use Types [...] - Temperature - - Respiratory Rate 16 03/10/2024 0619 EDT Oxygen Saturation - - Inhaled Oxygen Concentration - - Weight 86.5 kg (190 lb 11.2 oz) 03/10/2024 0619 EDT Height - - Body Mass Index 27.36 12/20/2023 2202 EST documented in this encounter [...] Flowsheet Note - Marcela Cox RN - 03/10/2024 1317 EDT 03/10/24 1039 Post-Hemodialysis Assessment Total Blood Processed (L) 89.27 Liters On Line Clearance: spKt/V 1.65 spKt/V Dialyzer Clearance Lightly streaked Treatment UFR (ml:kg:hr) 8.29 ml:kg:hr Final Critline Profile (%/hr) -0.67 Final Profile Profile A Critline refill Negative Fluid Removed (L) 3.5 L Post-Dialysis Scale Weight 104.5 kg (230 lb 6.1 oz) Wheelchair Weight 20.8 kg (45 lb 13.7 oz) Prosthesis Weight 0 kg (0 lb) Post-Treatment Weight (kg) 83.7 Treatment Weight Change (kg) 2.8 kg Day Target Weight (kg) 82.5 Post Sitting/Lying BP (!) 194/100 Post Sitting/Lying pulse 63 Temp 35.5 ??C (95.9 ??F) Temp src Temporal Minutes Short -242 Post access assessment AVF/AFG Hemostasis achieved Yes Note 10 min hold w/clamps Orientation Alert and Oriented x3 Yes Time Yes Place Yes Person Yes Cooperative Yes Disoriented No Discharge Ambulation Methods Departs via w/c;With patient transport Wrap up items Patient Response to Treatment Removed 3.5L out of original 4.5L UF goal, unable to remove full goald/t cramping. UF goal adjusted per crit line, vital signs and pt tolerance. Comments no concerns voiced post tx. documented in this encounter Plan of Treatment Upcoming Encounters Date Type Department Care Team (Late st Contact Info) Description 12/06/2024 6:45 EST Treatment [facility] [address] [place], [place] [phone] Carlota Jin MD [address] [place] [address], [facility] [address] [place] [phone] 12/08/2024 6:45 EST Treatment [facility] [address] [place], [place] [id number] Carlota Jin MD 1 [facility], [facility] [place] [phone] 12/11/2024 6:45 EST Treatment [facility] [address] [place] [address] Carlota Jin MD [address] [place] [address], [facility] [address] [place] [phone] 12/13/2024 6:45 EST Treatment [facility] [address] [place], [place] [id number] Carlota Jin MD 1 [facility], [facility] [place] [phone] 12/15/2024 6:45 EST Treatment [facility] [place] [address] [place], [place] [id number] Carlota Jin MD 1 [facility], [facility] [place] [phone] 12/18/2024 6:45 EST Treatment [facility] [place] [address] [place], [place] [id number] Carlota Jin MD 1 [facility], [facility] [place] [phone] 12/20/2024 6:45 EST Treatment [facility] [place] [address] [place], [place] [id number] Carlota Jin MD 1 [facility], [facility] [place] [phone] 12/22/2024 6:45 EST Treatment [facility] [place] [address] [place], [place] [id number] Carlota Jin MD 1 [facility], [facility] [place] [phone] 12/25/2024 6:45 EST Treatment [facility] [place] [address] [place], [place] [id number] Carlota Jin MD 1 [facility], [facility] [place] [phone] 12/27/2024 6:45 EST Treatment [facility] [place] [address] [place], [place] [id number] Carlota Jin MD 1 [facility], [facility] [place] [phone] 12/29/2024 6:45 EST Treatment [facility] [place] [address] [place] [address] Carlota Jin MD 1 [facility], [facility] [place] [phone] 01/01/2025 6:45 EDT Treatment [facility] [place] [address] [place] [address] Carlota Jin MD 1 [facility], [facility] [place] [phone] 01/03/2025 6:45 EDT Treatment [facility] [place] [address] [place] [address] Carlota Jin MD 1 [facility], [facility] [place] [phone] 01/05/2025 6:45 EDT Treatment [facility] [place] [address] [place], [place] [id number] Carlota Jin MD 1 [facility], [facility] [place] [phone] 01/08/2025 6:45 EDT Treatment [facility] [place] [address] [place], [place] [id number] Carlota Jin MD 1 [facility], [facility] [place] [phone] 01/10/2025 6:45 EDT Treatment [facility] [place] [address] [place], [place] [id number] Carlota Jin MD 1 [facility], [facility] [place] [phone] 01/12/2025 6:45 EDT Treatment [facility] [place] [address] [place] [address] Carlota Jin MD [address] [place] [address], [address] [phone] 01/15/2025 6:45 EDT Treatment [facility] [place] [address] [place], [place] [id number] Carlota Jin MD 1 [facility], [facility] [place] [phone] 01/17/2025 6:45 EDT Treatment [facility] [place] [address] [place], [place] [id number] Carlota Jin MD 1 [facility], [facility] [place] [phone] 01/19/2025 6:45 EDT Treatment [facility] [place] [address] [place] [address] Carlota Jin MD 1 [facility], [facility] [place] [phone] 01/22/2025 6:45 EDT Treatment [facility] [place] [address] [place] [address] [address] MD [address] [facility], [facility] [place] [phone] 01/24/2025 6:45 EDT Treatment [facility] [place] [address] [place] [address] Carlota Jin MD 1 [facility], [address] [phone] 01/26/2025 6:45 EDT Treatment [facility] [place] [address] [place] [address] Carlota Jin MD 1 [facility], [facility] [place] [phone] 01/29/2025 6:45 EDT Treatment [facility] [address] [place] [address] Carlota Jin MD 1 [facility], [facility] [place] [phone] 01/31/2025 6:45 EDT Treatment [facility] [place] [address] [place], [place] [id number] Carlota Jin MD 1 [facility], [facility] [place] [phone] 02/02/2025 6:45 EDT Treatment [facility] [place] [address] [place], [place] [id number] Carlota Jin MD 1 [facility], [facility] [place] [phone] 02/05/2025 6:45 EDT Treatment [facility] [place] [address] [place], [place] [id number] Carlota Jin MD [address] [place] [address], [facility] [place] [phone] 02/07/2025 6:45 EDT Treatment [facility] [place] [address] [place], [place] [id number] Carlota Jin MD 1 [facility], [facility] [place] [phone] 02/09/2025 6:45 EDT Treatment [facility] [place] [address] [place] [id number] Carlota Jin MD [address] [place] [address], [facility] [place] [phone] 02/12/2025 6:45 EDT Treatment [facility] [place] [address] [place], [place] [id number] Carlota Jin MD 1 [facility], [facility] [place] [phone] 02/14/2025 6:45 EDT Treatment [facility] [place] [address] [place], [place] [id number] Carlota Jin MD [address] [phone] 02/16/2025 6:45 EDT Treatment [facility] [address] [place], [place] [id number] Carlota Jin MD [address] [phone] 02/19/2025 6:45 EDT Treatment [facility] [address] [place], [place] [id number] Carlota Jin MD [address] [phone] 02/21/2025 6:45 EDT Treatment [facility] [address] [place], [place] [id number] Carlota Jin MD [address] [phone] documented as of this encounter Procedures Procedure Name Priority Date/Time Associated Diagnosis Comments HEMODIALYSIS Routine 03/10/2024 6:20 EDT ESRD (end stage renal disease) ([facility]) documented in this encounter Visit [...] oral, EVERY 4 HOURS PRN, Starting on Wed03/10/24 at 0628, Until Wed03/10/24 at 1518, Pain, Routine, DialysisIndications:ESRD (end stage renal disease) ([facility]) Given 03/10/2024 6:43 EDT 650 mg calcium carbonate (TUMS) tablet 500 mg (200 mg elemental calcium) 2 Tablet 2 Tablet, oral, ONCE IN DIALYSIS, 1 dose, On Wed03/10/24 at 0645, Routine, DialysisIndications:ESRD (end stage renal disease) ([facility]),Secondary hyperparathyroidism ([facility]) Given 03/10/2024 6:43 EDT 2 Tablets epoetin ken (EPOGEN) 20,000 unit/2 mL injection 6,500 Units 6,500 Units, intravenous, ONCE IN DIALYSIS, 1 dose, On Wed03/10/24 at 0645, Routine, DialysisIndications:ESRD (end stage renal disease) ([facility]),Anemia of chronic renal failure, unspecified CKD stage Given 03/10/2024 6:43 EDT 6,500 Units heparin injection 7,000 Units 7,000 Units, intravenous, ONCE IN DIALYSIS, 1 dose, On Wed03/10/24 at 0645, Routine, Dialysis, Now x1 bolus 3400 units to be given at the beginning of dialysis 900 units/hour to be given over the course of dialysis (7000 units total). Stop 1 hour prior to end of treatment. To be administered per Policy [id number].Indications:ESRD (end stage renal disease) ([facility]) Given 03/10/2024 6:43 EDT 7,000 Units LiquaCel liquid protein liquid 30 mL 30 mL, oral, ONCE IN DIALYSIS, 1 dose, On Wed03/10/24 at 0645, Patient's flavor preference: either, RoutineIndications:ESRD (end stage renal disease) ([facility]),Hypoalbuminemia Given 03/10/2024 6:44 EDT 30 mL documented in this encounter Orders Dialysis Count Last Ordered Date First Orde red Date HEMODIALYSIS 1 03/10/2024 documented in this encounter Care Teams Engraver Pantograph Relationship Specialty Start Date End Date Ken Greer MD [facility] [place] [address] PCP - General 07/07/23 documented as of this encounter
--- OUTSIDE RECORDS SUMMARY | 2024-12-05 12:08 | XMS_ITS | Encounter Summary ---
Author Organization [facility] Address [address] [place] [address] Care Team Providers Care Arrow Point Attacher Name Role Phone Ken Greer MD Primary Care Provider [phone] Encounter Details Date Type Department Care Team (Late st Contact Info) Description 02/16/2024 Documentation Visit [address] [place], [place] [address] Yoanna Degroot, VIDYA Social History Tobacco Use [...] Description 12/06/2024 6:45 EST Treatment [facility] [place] [address] [place], [place] [phone] Carlota Jin MD 1 [facility], [facility] 2 [place] [phone] 12/08/2024 6:45 EST Treatment [facility] - [place] [address] [place], [place] [phone] Carlota Jin MD 1 [facility] 2 [place] [phone] 12/11/2024 6:45 EST Treatment [facility] - [place] [address] [place], [place] [id number] Carlota Jin MD 1 [facility], [facility] 2 [place] [phone] 12/13/2024 6:45 EST Treatment [facility] [address] [place], [place] [phone] Carlota Jin MD [facility] 2 [place] [phone] 12/15/2024 6:45 EST Treatment [facility] [place] [address] [place], [place] [id number] Carlota Jin MD [facility], [facility] [address] [place] [phone] 12/18/2024 6:45 EST Treatment [facility] [place] [address] [place], [place] [id number] Carlota Jin MD 1 [facility], [facility] 2 [place] [phone] 12/20/2024 6:45 EST Treatment [facility] - [place] [address] [place], [place] [id number] Carlota Jin MD 1 [facility], [facility] 2 [place] [phone] 12/22/2024 6:45 EST Treatment [facility] [address] [place], [place] [id number] Carlota Jin MD [facility], [facility] 2 [place] [phone] 12/25/2024 6:45 EST Treatment [facility] [address] [place], [place] [id number] Carlota Jin MD 1 [facility], [facility] 2 [place] [phone] 12/27/2024 6:45 EST Treatment [facility] - [place] [address] [place], [place] [id number] Carlota Jin MD 1 [facility], [facility] 2 [place] [phone] 12/29/2024 6:45 EST Treatment [facility] [place] [address] [place], [place] [id number] Carlota Jin MD 1 [facility], [address] [phone] 01/01/2025 6:45 EDT Treatment [facility] [place] [address] [place], [place] [id number] Carlota Jin MD 1 [facility], [address] [phone] 01/03/2025 6:45 EDT Treatment [facility] - [place] [address] [place], [place] [id number] Carlota Jin MD 1 [facility], [address] [phone] 01/05/2025 6:45 EDT Treatment [facility] - [place] [address] [place], [place] [id number] Carlota Jin MD [address] [place] [address], [facility] 2 [place] [phone] 01/08/2025 6:45 EDT Treatment [facility] [place] [address] [place], [place] [id number] Carlota Jin MD [facility] Level [address] [place] [phone] 01/10/2025 6:45 EDT Treatment [facility] - [place] [address] [place], [place] [address] Carlota Jin MD [facility], [facility] 2 [place] [phone] 01/12/2025 6:45 EDT Treatment [facility] - [place] [address] [place], [place] [id number] Carlota Jin MD 1 [facility], [facility] 2 [place] [phone] 01/15/2025 6:45 EDT Treatment [facility] - [place] [address] [place], [place] [id number] Carlota Jin MD [facility], [facility] 2 [place] [phone] 01/17/2025 6:45 EDT Treatment [facility] [address] [place], [place] [id number] Carlota Jin MD [facility], [facility] 2 [place] [phone] 01/19/2025 6:45 EDT Treatment [facility] [address] [place], [place] [id number] Carlota Jin MD [facility], [facility] 2 [place] [phone] 01/22/2025 6:45 EDT Treatment [facility] - [place] [address] [place], [place] [id number] Carlota Jin MD 1 [facility], [facility] 2 [place] [phone] 01/24/2025 6:45 EDT Treatment [facility] - [place] [address] [place], [place] [id number] Carlota Jin MD 1 [facility], [facility] 2 [place] [phone] 01/26/2025 6:45 EDT Treatment [facility] - [place] [address] [place], [place] [id number] Carlota Jin MD 1 [facility], [facility] 2 [place] [phone] 01/29/2025 6:45 EDT Treatment [facility] - [place] [address] [place], [place] [id number] Carlota Jin MD 1 [facility], [facility] 2 [place] [phone] 01/31/2025 6:45 EDT Treatment [facility] - [place] [address] [place], [place] [id number] Carlota Jin MD 1 [facility], [facility] 2 [place] [phone] 02/02/2025 6:45 EDT Treatment [facility] [place] [address] [place], [place] [id number] Carlota Jin MD 1 [facility], [facility] 2 [place] [phone] 02/05/2025 6:45 EDT Treatment [facility] - [place] [address] [place], [place] [id number] Carlota Jin MD 1 [facility], [facility] 2 [place] [phone] 02/07/2025 6:45 EDT Treatment [facility] [place] [address] [place] [address] Carlota Jin MD 1 [facility], [address] [phone] 02/09/2025 6:45 EDT Treatment [facility] - [place] [address] [place], [place] [id number] Carlota Jin MD 1 [facility], [address] [phone] 02/12/2025 6:45 EDT Treatment [facility] - [place] [address] [place] [address] Carlota Jin MD 1 [facility], [facility] 2 [place] [phone] 02/14/2025 6:45 EDT Treatment [facility] [place] [address] [place], [place] [id number] Carlota Jin MD 1 [facility], [facility] 2 [place] [phone] 02/16/2025 6:45 EDT Treatment [facility] [address] [place], [place] [id number] Carlota Jin MD 1 [facility], [facility] 2 [place] [phone] 02/19/2025 6:45 EDT [facility] [address] [place], [place] [id number] Carlota Jin MD [address] [place] [address], [facility] 2 [place] [phone] 02/21/2025 6:45 EDT Treatment [facility] [address] [place], [place] [phone] Carlota Jin MD [address] [place] [address], [facility] 2 [place] [phone] documented as of this encounter Visit Diagnoses Not on filedocumented in this encounter Care Teams Arrow Point Attacher Relationship Specialty Start Date End Date [place] [address] PCP - General 07/07/23 documented as of this encounter
--- OUTSIDE RECORDS SUMMARY | 2024-12-05 12:08 | XMS_ITS | Encounter Summary ---
Author Organization [facility] Address [address] [place] [address] Care Team Providers Care Amr Physician Name Role Phone Ken Greer MD Primary Care Provider [phone] Encounter Details Date Type Department Care Team (Latest Contact Info) Description 02/07/2024 6:[address] [facility] [address] [place], [place] [id number] Carlota Jin MD [address] [facility] [place], Level [address] [place] [address] ESRD (end stage renal disease) ([facility]) (Primary Dx); Anemia of chronic renal failure, unspecified CKD stage; Hypoalbuminemia; Secondary hyperparathyroidism ([facility]) Social History Tobacco Use Types [...] - Temperature - - Respiratory Rate 16 02/07/2024 0624 EDT Oxygen Saturation - - Inhaled Oxygen Concentration - - Weight 89.4 kg (197 lb 1.5 oz) 02/07/2024 0627 E DT Height - - Body Mass Index 28.28 12/20/2023 2202 EST documented in this encounter [...] Flowsheet Note - Marcela Cox RN - 02/07/2024 1305 EDT 02/07/24 1052 Post-Hemodialysis Assessment Total Blood Processed (L) 89.25 Liters On Line Clearance: spKt/V 1.55 spKt/V Dialyzer Clearance Lightly streaked Treatment UFR (ml:kg:hr) 9.39 ml:kg:hr Critline refill Not done Fluid Removed (L) 3.5 L Post-Dialysis Scale Weight 107 kg (235 lb 14.3 oz) Wheelchair Weight 20.9 kg (46 lb 1.2 oz) Prosthesis Weight 0 kg (0 lb) Post-Treatment Weight (kg) 86.1 Treatment Weight Change (kg) 3.3 kg Day Target Weight (kg) 86.4 Post Sitting/Lying BP 168/84 Post Sitting/Lying pulse 72 Temp 35.6 ??C (96.1 ??F) Temp src [...] Dialysis Rounding - Carlota Jin MD - 02/07/2024 0687 EDT Dialysis Provider's Routine Assessment Gerson Bruner was seen and examined as appropriate during Dialysis. Pertinent lab results were reviewed. Changes since last visit: None Changes to current prescriptions/orders: None He continues to be extremely somnolent on dialysis. He does have significant fluid gains and cramping. Discussion is limited by his somnolence. Carlota Jin MD documented in this encounter Plan of Treatment Upcoming Encounters Date Type Department Care Team (Late st Contact Info) Description 12/06/2024 6:45 EST Treatment [facility] Dial[facility] [address] [place], [place] [id number] Carlota Jin MD [address] [facility], [facility] [address] [place] [address] 12/08/2024 6:45 EST Treatment [facility] [address] [place] [id number] Carlota Jin MD [address] [facility] [place], Level [address] [place] [address] 12/11/2024 6:45 EST Treatment [facility] - [place] [address] [place], [place] [id number] Carlota Jin MD [address] [facility], [facility] [address] [place] [phone] 12/13/2024 6:45 EST Treatment [facility] - [place] [address] [place], [place] [id number] Carlota Jin MD [address] [facility] [place], [facility] [address] [place] [phone] 12/15/2024 6:45 EST Treatment [facility] - [place] [address] [place] [address] Carlota Jin MD [address] [place] [address], [facility] [address] [place] [phone] 12/18/2024 6:45 EST Treatment [facility] - [place] [address] [place], [place] [id number] Carlota Jin MD [address] [facility], [facility] 2 [place] [phone] 12/20/2024 6:45 EST Treatment [facility] [place] [address] [place], [place] [id number] Carlota Jin MD [address] [facility], [facility] [address] [place] [phone] 12/22/2024 6:45 EST Treatment [facility] [place] [address] [place], [place] [phone] Carl[facility] MD 1 [facility] [address] [place] [phone] 12/25/2024 6:45 EST Treatment [facility] - [place] [address] [place], [place] [phone] Carlota Jin MD 1 [facility], [facility] [address] [place] [phone] 12/27/2024 6:45 EST Treatment [facility] - [place] [address] [place], [place] [id number] Carlota Jin MD [address] [facility] [place], [facility] [address] [place] [phone] 12/29/2024 6:45 EST Treatment [facility] - [place] [address] [place], [place] [phone] Carlota Jin MD [address] [facility] [place], [facility] [address] [place] [phone] 01/01/2025 6:45 EDT Treatment [facility] D[facility] [address] [place], [place] [id number] Carlota Jin MD [address] [facility] [place], [facility] [address] [place] [phone] 01/03/2025 6:45 EDT Treatment [facility] [place] [address] [place], [place] [id number] Carlota Jin MD [address] [facility] [place], [facility] [address] [place] [phone] 01/05/2025 6:45 EDT Treatment [facility] - [place] [address] [place], [place] [id number] Carlota Jin MD [address] [facility] [place], [facility] [address] [place] [phone] 01/08/2025 6:45 EDT Treatment [facility] - [place] [address] [place], [place] [phone] Carlota Jin MD [address] [facility] [place], [facility] [address] [place] [phone] 01/10/2025 6:45 EDT Treatment [facility] - [place] [address] [place], [place] [phone] Carlota Jin MD [address] [facility] [place] [place], [address] [phone] 01/12/2025 6:45 EDT Treatment [facility] - [place] [address] [place], [place] [address] Carlota Jin MD [address] [facility] [place], [facility] [address] [place] [phone] 01/15/2025 6:45 EDT Treatment [facility] - [place] [address] [place], [place] [id number] Carlota Jin MD [address] [facility] [place], [facility] [address] [place] [address] 01/17/2025 6:45 EDT Treatment [facility] - [place] [address] [place], [place] [id number] Carlota Jin MD [address] [facility] [place], [facility] 2 [place] [phone] 01/19/2025 6:45 EDT Treatment [facility] - [place] [address] [place], [place] [id number] Carlota Jin MD [address] [facility] [place], [facility] [address] [place] [phone] 01/22/2025 6:45 EDT Treatment [facility] - [place] [address] [place], [place] [phone] Carlota Jin MD [address] [facility] [place], [address] [phone] 01/24/2025 6:45 EDT Treatment [facility] - [place] [address] [place], [place] [phone] Carlota Jin MD [address] [facility] [place], [address] [phone] 01/26/2025 6:45 EDT Treatment [facility] - [place] [address] [place], [place] [phone] Carlota Jin MD [address] [facility] [place], [facility] [address] [place] [phone] 01/29/2025 6:45 EDT Treatment [facility] - [place] [address] [place], [place] [phone] Carlota Jin MD [address] [facility] [place], [facility] [address] [place] [phone] 01/31/2025 6:45 EDT Treatment [facility] - [place] [address] [place], [place] [phone] Carlota Jin MD [address] [facility] [place], [facility] [address] [place] [phone] 02/02/2025 6:45 EDT Treatment [facility] - [place] [address] [place], [place] [phone] Carlota Jin MD [address] [facility] [place], [facility] [address] [place] [phone] 02/05/2025 6:45 EDT Treatment [facility] - [place] [address] [place] [address] Carlota Jin MD [address] [facility] [place], [address] [phone] 02/07/2025 6:45 EDT Treatment [facility] - [place] [address] [place], [place] [id number] Carlota Jin MD [address] [facility] [place], [facility] 2 [place] [phone] 02/09/2025 6:45 EDT Treatment [facility] - [place] [address] [place], [place] [id number] Carlota Jin MD [address] [facility] [place], [facility] [address] [place] [phone] 02/12/2025 6:45 EDT Treatment [facility] - [place] [address] [place], [place] [address] Carlota Jin MD [address] [phone] 02/14/2025 6:45 EDT Treatment [facility] - [place] [address] [place], [place] [id number] Carlota Jin MD [address] [phone] 02/16/2025 6:45 EDT Treatment [facility] - [place] [address] [place], [place] [id number] Carlota Jin MD [address] [phone] 02/19/2025 6:45 EDT Treatment [facility] - [place] [address] [place], [place] [id number] Carlota Jin MD [address] [phone] 02/21/2025 6:45 EDT Treatment [facility] - [place] [address] [place], [place] [phone] Carlota Jin MD [address] [phone] documented as of this encounter Procedures Procedure Name Priority Date/Time Associated Diagnosis Comments HEMODIALYSIS Routine 02/07/2024 6:24 EDT ESRD (end stage renal disease) ([facility]) documented in this encounter Visit Diagnoses Diagnosis ESRD (end stage renal disease) ([facility])- Primary End stage renal disease Anemia of chronic renal failure, unspecified CKD stage Hypoalbuminemia Other disorders of plasma protein metabolism Secondary hyperparathyroidism ([facility]) Secondary hyperparathyroidism (of renal origin) documented in this encounter Administered Medications Inactive Administered Medications - up to 3 most recent administrations Medication Order MAR Action Action Date Dose Rate Site calcium carbonate (TUMS) tablet 500 mg (200 mg elemental calcium) 2 Tablet 2 Tablet, oral, ONCE IN DIALYSIS, 1 dose, On Wed02/07/24 at 0645, Routine, DialysisIndications:ESRD (end stage renal disease) ([facility]),Secondary hyperparathyroidism ([facility]) Given 02/07/2024 6:46 EDT 2 Tablets epoetin ken (EPOGEN) 20,000 unit/2 mL injection 4,000 Units 4,000 Units, intravenous, ONCE IN DIALYSIS, 1 dose, On Wed02/07/24 at 0645, Routine, DialysisIndications:ESRD (end stage renal disease) ([facility]),Anemia of chronic renal failure, unspecified CKD stage Given 02/07/2024 6:45 EDT 4,000 Units heparin injection 9,000 Units 9,000 Units, intravenous, ONCE IN DIALYSIS, 1 dose, On Wed02/07/24 at 0645, Routine, Dialysis, Now x1 bolus 4500 units to be given at the beginning of dialysis 1500 units/hour to be given over the course of dialysis (9000 units total). Stop 1 hour prior to end of treatment. To be administered per Policy [id number].Indications:ESRD (end stage renal disease) ([facility]) Given 02/07/2024 6:45 EDT 9,000 Units LiquaCel liquid protein liquid 30 mL 30 mL, oral, ONCE IN DIALYSIS, 1 dose, On Wed02/07/24 at 0645, RoutineIndications:ESRD (end stage renal disease) ([facility]),Hypoalbuminemia Given 02/07/2024 6:45 EDT 30 mL documented in this encounter Orders Dialysis Count Last Ordered Date First Orde red Date HEMODIALYSIS 1 02/07/2024 documented in this encounter Care Teams Amr Physician Relationship Specialty Start Date End Date Ken Greer MD [facility] [place] [address] PCP - General 07/07/23 documented as of this encounter
--- OUTSIDE RECORDS SUMMARY | 2024-12-05 12:08 | XMS_ITS | Encounter Summary ---
Author Organization [facility] Address [address] [place] [address] Care Team Providers Care Pinsetter Mechanic Automatic Name Role Phone Ken Greer MD Primary Care Provider [phone] Encounter Details Date Type Department Care Team (Late st Contact Info) Description 02/22/2024 Orders Only [facility] [address] [place], [place] [phone] Skye Gomez, MUKESH 1 [facility], Level [address] [place] [address] ESRD (end stage renal disease) ([facility]) (Primary Dx); Malnutrition, unspecified type ([facility]) Social History Tobacco Use Types Packs/Day Years [...] Date of Assessment Author No 12/20/2023 14:00 EST Angélica Wright, RN * Are you blind or do [...] Progress Notes * Skye Gomez NP - 02/22/2024 1725 EDT Renal Nutrition orders delegated to Renal Mobility Architect documented in this encounter Plan of Treatment Upcoming Encounters Date Type Department Care Team (Late st Contact Info) Description 12/06/2024 6:45 EST Treatment [facility] Dial[facility] [address] [place], [place] [phone] Carlota Jin MD [address] [place] [address], [facility] [address] [place] [address] 12/08/2024 6:45 EST Treatment [facility] [address] [place], [place] [phone] Carlota Jin MD [address] [place] [address], [facility] [address] [place] [address] 12/11/2024 6:45 EST Treatment [facility] [place] [address] [place], [place] [id number] Carlota Jin MD 1 [facility], [facility] 2 [place] [phone] 12/13/2024 6:45 EST Treatment [facility] - [place] [address] [place], [place] [phone] Carlota Jin MD 1 [facility], [facility] 2 [place] [phone] 12/15/2024 6:45 EST Treatment [facility] - [place] [address] [place], [place] [id number] Carlota Jin MD 1 [facility], [facility] [address] [place] [phone] 12/18/2024 6:45 EST Treatment [facility] - [place] [address] [place], [place] [id number] Carlota Jin MD 1 [facility], [facility] 2 [place] [phone] 12/20/2024 6:45 EST Treatment [facility] - [place] [address] [place], [place] [phone] Carlota Jin MD 1 [facility], [facility] 2 [place] [phone] 12/22/2024 6:45 EST Treatment [facility] - [place] [address] [place], [place] [phone] Carlota Jin MD 1 [facility], [facility] 2 [place] [phone] 12/25/2024 6:45 EST Treatment [facility] - [place] [address] [place], [place] [address] Carlota Jin MD 1 [facility], [facility] 2 [place] [phone] 12/27/2024 6:45 EST Treatment [facility] [place] [address] [place], [place] [phone] Carlota Jin MD 1 [facility], [facility] 2 [place] [phone] 12/29/2024 6:45 EST Treatment [facility] [place] [address] [place] [address] Carlota Jin MD 1 [facility], [facility] [address] [place] [phone] 01/01/2025 6:45 EDT Treatment [facility] [address] [place] [address] Carlota Jin MD 1 [facility], [facility] 2 [place] [phone] 01/03/2025 6:45 EDT Treatment [facility] [address] [place], [place] [phone] Carlota Jin MD 1 [facility], [facility] 2 [place] [phone] 01/05/2025 6:45 EDT Treatment [facility] - [place] [address] [place], [place] [phone] Carlota Jin MD 1 [facility], [facility] [address] [place] [phone] 01/08/2025 6:45 EDT Treatment [facility] - [place] [address] [place], [place] [phone] Carlota Jin MD 1 [facility], [facility] 2 [place] [phone] 01/10/2025 6:45 EDT Treatment [facility] - [place] [address] [place] [address] Carlota Jin MD [address] [place] [address], [address] [phone] 01/12/2025 6:45 EDT Treatment [facility] [place] [address] [place], [place] [phone] Carlota Jin MD 1 [facility], [facility] 2 [place] [phone] 01/15/2025 6:45 EDT Treatment [facility] [place] [address] [place], [place] [phone] Carlota Jin MD 1 [facility], [facility] 2 [place] [phone] 01/17/2025 6:45 EDT Treatment [facility] - [place] [address] [place] [address] Carlota Jin MD 1 [facility], [facility] 2 [place] [phone] 01/19/2025 6:45 EDT Treatment [facility] [place] [address] [place], [place] [phone] Carlota Jin MD 1 [facility], [facility] 2 [place] [phone] 01/22/2025 6:45 EDT Treatment [facility] [place] [address] [place] [address] Carlota Jin MD 1 [facility], [address] [phone] 01/24/2025 6:45 EDT Treatment [facility] [place] [address] [place], [place] [phone] Carlota Jin MD 1 [facility], [address] [phone] 01/26/2025 6:45 EDT Treatment [facility] [place] [address] [place] [address] Carlota Jin MD 1 [facility], [facility] 2 [place] [phone] 01/29/2025 6:45 EDT Treatment [facility] [place] [address] [place], [place] [phone] Carlota Jin MD 1 [facility], [facility] 2 [place] [phone] 01/31/2025 6:45 EDT Treatment [facility] [place] [address] [place], [place] [address] Carlota Jin MD 1 [facility], [facility] 2 [place] [phone] 02/02/2025 6:45 EDT Treatment [facility] [place] [address] [place], [place] [id number] Carlota Jin MD [address] [place] [address], [facility] 2 [place] [phone] 02/05/2025 6:45 EDT Treatment [facility] [place] [address] [place] [address] Carlota Jin MD 1 [facility], [facility] 2 [place] [phone] 02/07/2025 6:45 EDT Treatment [facility] [place] [address] [place] [address] Carlota Jin MD [address] [place] [address], [facility] 2 [place] [phone] 02/09/2025 6:45 EDT Treatment [facility] [place] [address] [place], [place] [phone] Carlota Jin MD [address] [place] [address], [facility] [address] [place] [phone] 02/12/2025 6:45 EDT Treatment [facility] [place] [address] [place], [place] [address] Carlota Jin MD 1 [facility], [address] [phone] 02/14/2025 6:45 EDT Treatment [facility] [address] [place], [place] [phone] Carlota Jin MD [address] [place] [phone] 02/16/2025 6:45 EDT Treatment [facility] [address] [place], [place] [phone] Carlota Jin MD [address] [place] [phone] 02/19/2025 6:45 EDT Treatment [facility] [address] [place], [place] [phone] Carlota Jin MD [address] [place] [phone] 02/21/2025 6:45 EDT Treatment [facility] [address] [place], [place] [phone] Carlota Jin MD [address] [place] [phone] documented as of this encounter Visit Diagnoses Diagnosis ESRD (end stage renal disease) ([facility] Primary End stage renal disease Malnutrition, unspecified type ([facility]) documented in this encounter Orders Nursing Count Last Ordered Date First Orde red Date DELEGATE INTRADIALYTIC PAREN TERAL NUTRITION 1 02/22/2024 DELEGATE MINERAL BONE DISORDER 1 02/22/2024 DELEGATE NUTRITION SUPPLEMENT PASS 1 2023 documented in this encounter Care Teams Pinsetter Mechanic Automatic Relationship Specialty Start Date End Date Ken Greer MD [address] [place] [address] PCP - General 07/07/23 documented as of this encounter
--- OUTSIDE RECORDS SUMMARY | 2024-12-05 12:08 | XMS_ITS | Encounter Summary ---
Author Organization [facility] Address [address] [place] [address] Care Team Providers Care Electric Motor Tester Name Role Phone Ken Greer MD Primary Care Provider [phone] Encounter Details Date Type Department Care Team (Latest Contact Info) Description 02/16/2024 6:[address] [facility] [address] [place], [place] [phone] Carlota Jin MD 1 [facility], Level 2 [place] [phone] ESRD (end stage renal disease) ([facility]) (Primary Dx); Anemia of chronic renal failure, unspecified CKD stage; Hypoalbuminemia; Secondary hyperparathyroidism ([facility]) Social History Tobacco [...] - Temperature - - Respiratory Rate 16 02/16/2024 0624 EDT Oxygen Saturation - - Inhaled Oxygen Concentration - - Weight 88.6 kg (195 lb 5.2 oz) 02/16/2024 0624 E DT Height - - Body Mass Index 28.03 12/20/2023 2202 EST documented in this encounter [...] Flowsheet Note - Marcela Cox RN - 02/16/2024 1339 EDT 02/16/24 1044 Post-Hemodialysis Assessment Total Blood Processed (L) 89.4 Liters On Line Clearance: spKt/V 1.61 spKt/V Dialyzer Clearance Lightly streaked Treatment UFR (ml:kg:hr) 8.88 ml:kg:hr Final Critline Profile (%/hr) -2.79 Final Profile Profile A Critline refill Negative Fluid Removed (L) 3.5 L Post-Dialysis Scale Weight 106.4 kg (234 lb 9.1 oz) Wheelchair Weight 20.9 kg (46 lb 1.2 oz) Prosthesis Weight 0 kg (0 lb) Post-Treatment Weight (kg) 85.5 Treatment Weight Change (kg) 3.1 kg Day Target Weight (kg) 85.6 Post Sitting/Lying BP 174/87 Post Sitting/Lying pulse 81 Temp 36.6 ??C (97.9 ??F) Temp src Temporal Minutes Short -245 Post access assessment AVF/AFG Hemostasis achieved Yes Note 10 min hold w/clamps Orientation Alert and Oriented x3 Yes Time Yes Place Yes Person Yes Cooperative Yes Disoriented No Discharge Ambulation Methods Departs via w/c;With patient transport Wrap up items Patient Response to Treatment Removed 3.5L UF goal without difficulty. Comments no concerns voiced post tx. * Dialysis Rounding - Skye Gomez NP - 02/16/2024 0622 EDT Dialysis Provider's Routine Assessment Gerson Becky Bruner was seen and examined as appropriate during Dialysis. Pertinent lab results were reviewed. Changes since last visit: None Changes to current prescriptions/orders: None Skye Gomez NP documented in this encounter Plan of Treatment Upcoming Encounters Date Type Department Care Team (Late st Contact Info) Description 12/06/2024 6:[address] [facility] [address] [place], [place] [phone] Carlota Jin MD [address] [place] [address], [facility] [address] [place] [phone] 12/08/2024 6:[address] [facility] [address] [place] [phone] Carlota Jin MD 1 [facility], [facility] [place] [phone] 12/11/2024 6:45 EST Treatment [facility] - [place] [address] [place], [place] [address] Carlota Jin MD [facility] [place] [phone] 12/13/2024 6:45 EST Treatment [facility] - [place] [address] [place], [place] [phone] Carlota Jin MD 1 [facility], [facility] [place] [phone] 12/15/2024 6:45 EST Treatment [facility] - [place] [address] [place], [place] [phone] Carlota Jin MD [facility] [address] [place] [phone] 12/18/2024 6:45 EST Treatment [facility] - [place] [address] [place], [place] [phone] Carlota Jin MD 1 [facility], [facility] [place] [phone] 12/20/2024 6:45 EST Treatment [facility] [place] [address] [place], [place] [phone] Carlota Jin MD 1 [facility], [facility] [place] [phone] 12/22/2024 6:45 EST Treatment [facility] [place] [address] [place], [place] [phone] Carlota Jin MD 1 [facility], [facility] [place] [phone] 12/25/2024 6:45 EST Treatment [facility] - [place] [address] [place], [place] [phone] Carlota Jin MD 1 [facility] [place] [phone] 12/27/2024 6:45 EST Treatment [facility] [address] [place], [place] [phone] Carlota Jin MD 1 [facility], [facility] [place] [phone] 12/29/2024 6:45 EST [facility] [address] [place], [place] [phone] Carlota Jin MD 1 [facility], [address] [phone] 01/01/2025 6:45 EDT [facility] [address] [place] [address] [address] Jin MD [address] [facility] [address] [place] [phone] 01/03/2025 6:45 EDT [facility] [address] [place], [place] [phone] Carlota Jin MD 1 [facility], [facility] [address] [place] [phone] 01/05/2025 6:45 EDT Treatment [facility] - [place] [address] [place], [place] [phone] Carlota Jin MD 1 [facility], [address] [phone] 01/08/2025 6:45 EDT Treatment [facility] - [place] [address] [place], [place] [phone] Carlota Jin MD 1 [facility], [address] [phone] 01/10/2025 6:45 EDT Treatment [facility] - [place] [address] [place], [place] [phone] Carlota Jin MD [address] [place] [address], [address] [phone] 01/12/2025 6:45 EDT Treatment [facility] - [place] [address] [place], [place] [phone] Carlota Jin MD 1 [facility], [address] [phone] 01/15/2025 6:45 EDT Treatment [facility] - [place] [address] [place], [place] [phone] Carlota Jin MD [address] [place] [address], [address] [phone] 01/17/2025 6:45 EDT Treatment [facility] - [place] [address] [place], [place] [phone] Carlota Jin MD 1 [facility], Level [address] [place] [phone] 01/19/2025 6:45 EDT Treatment [facility] [place] [address] [place], [place] [address] Carlota Jin MD 1 [facility] [address] [place] [phone] 01/22/2025 6:45 EDT Treatment [facility] - [place] [address] [place], [place] [phone] Carlota Jin MD 1 [facility], [facility] [place] [phone] 01/24/2025 6:45 EDT Treatment [facility] [place] [address] [place], [place] [phone] Carlota Jin MD [address] [facility] [address] [place] [phone] 01/26/2025 6:45 EDT Treatment [facility] [address] [place], [place] [phone] Carlota Jin MD [address] [facility] [address] [place] [phone] 01/29/2025 6:45 EDT Treatment [facility] [address] [place], [place] [phone] Carlota Jin MD 1 [facility] [address] [place] [phone] 01/31/2025 6:45 EDT Treatment [facility] [place] [address] [place], [place] [phone] Carlota Jin MD 1 [facility], [facility] [place] [phone] 02/02/2025 6:45 EDT Treatment [facility] [place] [address] [place], [place] [phone] Carlota Jin MD 1 [facility], [facility] [place] [phone] 02/05/2025 6:45 EDT Treatment [facility] [place] [address] [place], [place] [phone] Carlota Jin MD 1 [facility], [facility] [place] [phone] 02/07/2025 6:45 EDT Treatment [facility] [place] [address] [place], [place] [phone] Carlota Jin MD 1 [facility], [facility] [address] [place] [phone] 02/09/2025 6:45 EDT Treatment [facility] - [place] [address] [place], [place] [phone] Carlota Jin MD 1 [facility], [facility] [place] [phone] 02/12/2025 6:45 EDT Treatment [facility] [place] [address] [place], [place] [phone] Carlota Jin MD 1 [facility], [address] [phone] 02/14/2025 6:45 EDT Treatment [facility] [place] [address] [place], [place] [phone] Carlota Jin MD 1 [facility], [address] [phone] 02/16/2025 6:45 EDT Treatment [facility] - [place] [address] [place], [place] [phone] Carlota Jin MD [address] [phone] 02/19/2025 6:45 EDT Treatment [facility] - [place] [address] [place], [place] [phone] Carlota Jin MD 1 [facility], [address] [phone] 02/21/2025 6:45 EDT Treatment [facility] - [place] [address] [place], [place] [phone] Carlota Jin MD 1 [facility], [address] [phone] documented as of this encounter Procedures Procedure Name Priority Date/Time Associated Diagnosis Comments COMPLETE BLOOD COUNT Routine 02/16/2024 6:34 EDT ESRD (end stage renal disease) ([facility]) HEMODIALYSIS Routine 02/16/2024 6:24 EDT ESRD (end stage renal disease) ([facility]) documented in this encounter Results * (ABNORMAL) COMPLETE BLOOD COUNT (02/16/2024 6:34 EDT) WBC 14.14(H) 4.00 - 10.40 K/cmm 02/16/2024 22:08 [facility] RBC 2.49(L) 4.36 - 5.78 M/cmm 02/16/2024 22:08 [facility] Hemoglobin 7.1(L) 13.8 - 17.3 g/dL 02/16/2024 22:08 [facility] HCT 22.3(L) 39.5 - 50.2 % 02/16/2024 22:08 [facility] MCV 90 81 - 95 fL 02/16/2024 22:08 [facility] MCH 28.5 27.6 - 33.0 pg 02/16/2024 22:08 [facility] MCHC 31.8(L) 32.8 - 36.4 g/dL 02/16/2024 22:08 [facility] RDW-CV 13.6 <14.2 % 02/16/2024 22:08 [facility] RDW-SD 44.8 <46.0 fl 02/16/2024 22:08 [facility] PLT 400(H) 141 - 377 K/cmm 02/16/2024 22:08 [facility] MPV 11.3 9.5 - 12.7 fL 02/16/2024 22:08 [facility] Blood VENOUS BLOOD / Unknown Venipuncture / Unknown 02/16/2024 6:34 EDT 02/16/2024 6:34 EDT us Skye Gomez NP HEMATOLOGY & PF4 ORDERABLES Final Result [facility] [address] [place], [place] [phone] documented in this encounter Visit Diagnoses Diagnosis ESRD (end stage renal disease) ([facility])- Primary End stage renal disease Anemia of chronic renal failure, unspecified CKD stage Hypoalbuminemia Other disorders of plasma protein metabolism Secondary hyperparathyroidism ([facility]) Secondary hyperparathyroidism (of renal origin) documented in this encounter Administered Medications Inactive Administered Medications - up to 3 most recent administrations Medication Order MAR Action Action Date Dose Rate Site calcium carbonate (TUMS) tablet 500 mg (200 mg elemental calcium) 2 Tablet 2 Tablet, oral, ONCE IN DIALYSIS, 1 dose, On Wed02/16/24 at 0645, Routine, DialysisIndications:ESRD (end stage renal disease) ([facility]),Secondary hyperparathyroidism ([facility]) Given 02/16/2024 6:50 EDT 2 Tablets epoetin ken (EPOGEN) 20,000 unit/2 mL injection 4,000 Units 4,000 Units, intravenous, ONCE IN DIALYSIS, 1 dose, On Wed02/16/24 at 0645, Routine, DialysisIndications:ESRD (end stage renal disease) ([facility]),Anemia of chronic renal failure, unspecified CKD stage Given 02/16/2024 6:50 EDT 4,000 Units heparin injection 9,000 Units 9,000 Units, intravenous, ONCE IN DIALYSIS, 1 dose, On Wed02/16/24 at 0645, Routine, Dialysis, Now x1 bolus 4500 units to be given at the beginning of dialysis 1500 units/hour to be given over the course of dialysis (9000 units total). Stop 1 hour prior to end of treatment. To be administered per Policy [id number].Indications:ESRD (end stage renal disease) ([facility]) Given 02/16/2024 6:50 EDT 9,000 Units LiquaCel liquid protein liquid 30 mL 30 mL, oral, ONCE IN DIALYSIS, 1 dose, On Wed02/16/24 at 0645, RoutineIndications:ESRD (end stage renal disease) ([facility]),Hypoalbuminemia Given 02/16/2024 6:51 EDT 30 mL documented in this encounter Orders Dialysis Count Last Ordered Date First Orde red Date HEMODIALYSIS 1 02/16/2024 documented in this encounter Care Teams Electric Motor Tester Relationship Specialty Start Date End Date Ken Greer [place] [address] PCP - General 07/07/23 documented as of this encounter
--- OUTSIDE RECORDS SUMMARY | 2024-12-05 12:08 | XMS_ITS | Encounter Summary ---
Author Organization [facility] Address [address] [place] [address] Care Team Providers Care Harness Cleaner Name Role Phone Ken Greer MD Primary Care Provider Encounter Details Date Type Department Care Team (Latest Contact Info) Description 02/11/2024 6:45 EDT Treatment [facility] [address] [place], [place] [id number] Carlota Jin MD 1 [facility], Level [address] [place] [phone] ESRD (end stage renal disease) ([facility]) (Primary Dx); Anemia of chronic renal failure, unspecified CKD stage; Hypoalbuminemia; Secondary hyperparathyroidism ([facility]) Social History Tobacco Use [...] - Temperature - - Respiratory Rate 16 02/11/2024 0628 EDT Oxygen Saturation - - Inhaled Oxygen Concentration - - Weight 85.4 kg (188 lb 4.4 oz) 02/11/2024 0624 E DT Height - - Body Mass Index 27.01 12/20/2023 2202 EST documented in this encounter [...] Flowsheet Note - Marcela Cox RN - 02/11/2024 1308 EDT 02/11/24 1050 Post-Hemodialysis Assessment Total Blood Processed (L) 91.05 Liters On Line Clearance: spKt/V 1.65 spKt/V Dialyzer Clearance Lightly streaked Treatment UFR (ml:kg:hr) 1.45 ml:kg:hr Critline refill Not done Fluid Removed (L) 0.5 L Post-Dialysis Scale Weight 105.8 kg (233 lb 4 oz) Wheelchair Weight 20.9 kg (46 lb 1.2 oz) Prosthesis Weight 0 kg (0 lb) Post-Treatment Weight (kg) 84.9 Treatment Weight Change (kg) 0.5 kg Day Target Weight (kg) 85.4 Post Sitting/Lying BP 171/85 Post Sitting/Lying pulse 74 Temp 35.8 ??C (96.4 ??F) Temp src Temporal Post access assessment AVF/AFG Hemostasis achieved Yes Note pt held for 10 minutes with blue clamps Orientation Alert and Oriented x3 Yes Time Yes Place Yes Person Yes Cooperative Yes Disoriented No Discharge Ambulation Methods Departs via w/c Wrap up items Patient Response to Treatment Tolerated tx well. Removed 500cc UF goal without difficulty. Comments No issues during tx, no concerns voiced post tx. documented in this encounter Plan of Treatment Upcoming Encounters Date Type Department Care Team (Late st Contact Info) Description 12/06/2024 6:45 EST Treatment [facility] [place] [address] [place], [place] [phone] Carlota Jin MD 1 [facility], [address] [phone] 12/08/2024 6:45 EST Treatment [facility] [place] [address] [place], [place] [phone] Carlota Jin MD 1 [facility], [address] [phone] 12/11/2024 6:45 EST Treatment [facility] [place] [address] [place], [place] [id number] Carlota Jin MD [address] [phone] 12/13/2024 6:45 EST Treatment [facility] [address] [place], [place] [id number] Carlota Jin MD 1 [facility], Level [address] [place] [phone] 12/15/2024 6:45 EST Treatment [facility] [place] [address] [place], [place] [id number] Carlota Jin MD 1 [facility], [facility] 2 [place] [phone] 12/18/2024 6:45 EST Treatment [facility] [place] [address] [place], [place] [phone] Carlota Jin MD 1 [facility], [facility] 2 [place] [phone] 12/20/2024 6:45 EST Treatment [facility] [place] [address] [place], [place] [id number] Carlota Jin MD 1 [facility], [facility] 2 [place] [phone] 12/22/2024 6:45 EST Treatment [facility] [place] [address] [place] [address] Carlota Jin MD 1 [facility], [facility] 2 [place] [phone] 12/25/2024 6:45 EST Treatment [facility] [place] [address] [place], [place] [phone] Carlota Jin MD 1 [facility], [facility] 2 [place] [phone] 12/27/2024 6:45 EST Treatment [facility] [place] [address] [place], [place] [phone] Carlota Jin MD 1 [facility], [facility] 2 [place] [phone] 12/29/2024 6:45 EST Treatment [facility] [place] [address] [place], [place] [phone] Carlota Jin MD 1 [facility], [facility] 2 [place] [phone] 01/01/2025 6:45 EDT Treatment [facility] [place] [address] [place], [place] [phone] Carlota Jin MD 1 [facility], [facility] 2 [place] [phone] 01/03/2025 6:45 EDT Treatment [facility] [place] [address] [place], [place] [phone] Carlota Jin MD 1 [facility], [facility] 2 [place] [phone] 01/05/2025 6:45 EDT Treatment [facility] [place] [address] [place], [place] [phone] Carlota Jin MD 1 [facility], [facility] 2 [place] [phone] 01/08/2025 6:45 EDT Treatment [facility] [place] [address] [place], [place] [phone] Carlota Jin MD 1 [facility], [facility] 2 [place] [phone] 01/10/2025 6:45 EDT Treatment [facility] [place] [address] [place], [place] [id number] Carlota Jin MD 1 [facility], [facility] 2 [place] [phone] 01/12/2025 6:45 EDT Treatment [facility] [place] [address] [place], [place] [phone] Carlota Jin MD 1 [facility], [facility] 2 [place] [phone] 01/15/2025 6:45 EDT Treatment [facility] [place] [address] [place] [address] Carlota Jin MD 1 [facility], [facility] 2 [place] [phone] 01/17/2025 6:45 EDT Treatment [facility] [place] [address] [place], [place] [phone] Carlota Jin MD 1 [facility], [facility] 2 [place] [phone] 01/19/2025 6:45 EDT Treatment [facility] [place] [address] [place], [place] [id number] Carlota Jin MD 1 [facility], [facility] 2 [place] [phone] 01/22/2025 6:45 EDT Treatment [facility] [place] [address] [place], [place] [phone] Carlota Jin MD 1 [facility], [facility] 2 [place] [phone] 01/24/2025 6:45 EDT Treatment [facility] [place] [address] [place], [place] [phone] Carlota Jin MD 1 [facility], [facility] 2 [place] [phone] 01/26/2025 6:45 EDT Treatment [facility] [place] [address] [place] [address] Carlota Jin MD 1 [facility], [address] [phone] 01/29/2025 6:45 EDT Treatment [facility] [place] [address] [place], [place] [phone] Carlota Jin MD 1 [facility], [facility] 2 [place] [phone] 01/31/2025 6:45 EDT Treatment [facility] [place] [address] [place], [place] [phone] Carlota Jin MD 1 [facility], [facility] 2 [place] [phone] 02/02/2025 6:45 EDT Treatment [facility] [place] [address] [place] [address] Carlota Jin MD 1 [facility], [facility] 2 [place] [phone] 02/05/2025 6:45 EDT Treatment [facility] [place] [address] [place] [address] Carlota Jin MD 1 [facility], [facility] 2 [place] [phone] 02/07/2025 6:45 EDT Treatment [facility] [place] [address] [place] [address] Carlota Jin MD 1 [facility], [address] [phone] 02/09/2025 6:45 EDT Treatment [facility] [place] [address] [place] [address] Carlota Jin MD 1 [facility], [address] [phone] 02/12/2025 6:45 EDT Treatment [facility] [place] [address] [place] [address] Carlota Jin MD 1 [facility], [facility] 2 [place] [phone] 02/14/2025 6:45 EDT Treatment [facility] [place] [address] [place], [place] [phone] Carlota Jin MD 1 [facility], [facility] 2 [place] [phone] 02/16/2025 6:45 EDT Treatment [facility] [address] [place], [place] [phone] Carlota Jin MD 1 [facility], [address] [phone] 02/19/2025 6:45 EDT [facility] [address] [place], [place] [phone] Carlota Jin MD [address] [place] [address], [address] [phone] 02/21/2025 6:45 EDT Treatment [facility] [address] [place], [place] [phone] Carlota Jin MD [address] [place] [address], [address] [phone] documented as of this encounter Procedures Procedure Name Priority Date/Time Associated Diagnosis Comments HEMODIALYSIS Routine 02/11/2024 6:28 EDT ESRD (end stage renal disease) ([facility]) documented in this encounter Visit Diagnoses Diagnosis ESRD (end stage renal disease) ([facility] Primary End stage renal disease Anemia of chronic renal failure, unspecified CKD stage Hypoalbuminemia Other disorders of plasma protein metabolism Secondary hyperparathyroidism ([facility]) Secondary hyperparathyroidism (of renal origin) documented in this encounter Administered Medications Inactive Administered Medications - up to 3 most recent administrations Medication Order MAR Action Action Date Dose Rate Site calcium carbonate (TUMS) tablet 500 mg (200 mg elemental calcium) 2 Tablet 2 Tablet, oral, ONCE IN DIALYSIS, 1 dose, On Wed02/11/24 at 0645, Routine, DialysisIndications:ESRD (end stage renal disease) ([facility]),Secondary hyperparathyroidism ([facility]) Given 02/11/2024 6:53 EDT 2 Tablets epoetin ken (EPOGEN) 20,000 unit/2 mL injection 4,000 Units 4,000 Units, intravenous, ONCE IN DIALYSIS, 1 dose, On Wed02/11/24 at 0645, Routine, DialysisIndications:ESRD (end stage renal disease) ([facility]),Anemia of chronic renal failure, unspecified CKD stage Given 02/11/2024 6:53 EDT 4,000 Units heparin injection 9,000 Units 9,000 Units, intravenous, ONCE IN DIALYSIS, 1 dose, On Wed02/11/24 at 0645, Routine, Dialysis, Now x1 bolus 4500 units to be given at the beginning of dialysis 1500 units/hour to be given over the course of dialysis (9000 units total). Stop 1 hour prior to end of treatment. To be administered per Policy [id number].Indications:ESRD (end stage renal disease) ([facility]) Given 02/11/2024 6:53 EDT 9,000 Units LiquaCel liquid protein liquid 30 mL 30 mL, oral, ONCE IN DIALYSIS, 1 dose, On Wed02/11/24 at 0645, RoutineIndications:ESRD (end stage renal disease) ([facility]),Hypoalbuminemia Given 02/11/2024 6:53 EDT 30 mL documented in this encounter Orders Dialysis Count Last Ordered Date First Orde red Date HEMODIALYSIS 1 02/11/2024 documented in this encounter Care Teams Harness Cleaner Relationship Specialty Start Date End Date Ken Greer MD [address] [place] [address] PCP - General 07/07/23 documented as of this encounter
--- OUTSIDE RECORDS SUMMARY | 2024-12-05 12:08 | XMS_ITS | Encounter Summary ---
Author Organization [facility] Address [address] [place] [address] Care Team Providers Care Shed Boss Name Role Phone Ken Greer MD Primary Care Provider [phone] Encounter Details Date Type Department Care Team (Latest Contact Info) Description 02/18/2024 6:[address] [facility] [address] [place], [place] [id number] Carlota Jin MD 1 [facility], Level 2 [place] [address] ESRD (end stage renal disease) ([facility]) (Primary Dx); Anemia of chronic renal failure, unspecified CKD stage; Hypoalbuminemia; Secondary hyperparathyroidism ([facility]) Social History Tobacco Use Types Packs/Day Years [...] - Temperature - - Respiratory Rate 16 02/18/2024 0634 EDT Oxygen Saturation - - Inhaled Oxygen Concentration - - Weight 86.8 kg (191 lb 5.8 oz) 02/18/2024 0635 E DT Height - - Body Mass Index 27.46 12/20/2023 2202 EST documented in this encounter [...] Flowsheet Note - Marcela Cox RN - 02/18/2024 1134 EDT 02/18/24 1031 Post-Hemodialysis Assessment Total Blood Processed (L) 83.84 Liters On Line Clearance: spKt/V 1.58 spKt/V Dialyzer Clearance Clotted Treatment UFR (ml:kg:hr) 8.52 ml:kg:hr Final Critline Profile (%/hr) -1.41 Final Profile Profile A Critline refill Not done Fluid Removed (L) 2.25 L Post-Dialysis Scale Weight 105 kg (231 lb 7.7 oz) Wheelchair Weight 20.9 kg (46 lb 1.2 oz) Prosthesis Weight 0 kg (0 lb) Post-Treatment Weight (kg) 84.1 Treatment Weight Change (kg) 2.7 kg Day Target Weight (kg) 85 Post Sitting/Lying BP 121/61 Post Sitting/Lying pulse 75 Temp 37.2 ??C (99 ??F) Temp src Temporal Minutes Short -226 Post access assessment AVF/AFG Hemostasis achieved Yes Note 10 min hold w/clamps Orientation Alert and Oriented x3 Yes Time Yes Place Yes Person Yes Cooperative Yes Disoriented No Discharge Ambulation Methods Departs via w/c;With patient transport Wrap up items Patient Response to Treatment Removed 2.2L out of original 2.3L UF goal, unable to remove full goalas tx ended 15 min early d/t clotting of arterial lines. Comments plan for pt to drive pt to [facility] post tx for continued eval of LLE infection, agreeable with plan. [facility] made aware. documented in this encounter Plan of Treatment Upcoming Encounters Date Type Department Care Team (Late st Contact Info) Description 12/06/2024 6:45 EST [facility] [address] [place], [place] [phone] Carlota Jin MD [address] [place] [phone] 12/08/2024 6:45 EST Treatment [facility] [address] [place], [place] [phone] Carlota Jin MD [address] [place] [address] 2 [place] [phone] 12/11/2024 6:45 EST Treatment [facility] [address] [place] [address] Carlota Jin MD [address] [place] [address], [facility] 2 [place] [address] 12/13/2024 6:45 EST Treatment [facility] [place] [address] [place], [place] [phone] Carlota Jin MD 1 [facility], [facility] 2 [place] [phone] 12/15/2024 6:45 EST Treatment [facility] [place] [address] [place], [place] [phone] Carlota Jin MD 1 [facility], [facility] 2 [place] [phone] 12/18/2024 6:45 EST Treatment [facility] [place] [address] [place], [place] [phone] Carlota Jin MD 1 [facility], [facility] 2 [place] [phone] 12/20/2024 6:45 EST Treatment [facility] [place] [address] [place], [place] [phone] Carlota Jin MD 1 [facility], [facility] 2 [place] [phone] 12/22/2024 6:45 EST Treatment [facility] [place] [address] [place], [place] [phone] Carlota Jin MD 1 [facility], [facility] 2 [place] [phone] 12/25/2024 6:45 EST Treatment [facility] [place] [address] [place] [phone] Carlota Jin MD 1 [facility], [facility] 2 [place] [phone] 12/27/2024 6:45 EST Treatment [facility] [place] [address] [place], [place] [phone] Carlota Jin MD 1 [facility], [facility] 2 [place] [phone] 12/29/2024 6:45 EST Treatment [facility] [place] [address] [place], [place] [phone] Carlota Jin MD 1 [facility], [address] [phone] 01/01/2025 6:45 EDT Treatment [facility] [place] [address] [place], [place] [phone] Carlota Jin MD 1 [facility], [facility] 2 [place] [phone] 01/03/2025 6:45 EDT Treatment [facility] [address] [place], [place] [phone] Carlota Jin MD 1 [facility], [facility] 2 [place] [phone] 01/05/2025 6:45 EDT Treatment [facility] [place] [address] [place], [place] [phone] Carlota Jin MD 1 [facility], [facility] 2 [place] [phone] 01/08/2025 6:45 EDT Treatment [facility] [place] [address] [place], [place] [phone] Carlota Jin MD 1 [facility], [facility] 2 [place] [phone] 01/10/2025 6:45 EDT Treatment [facility] [place] [address] [place], [place] [phone] Carlota Jin MD 1 [facility], [facility] 2 [place] [phone] 01/12/2025 6:45 EDT Treatment [facility] [place] [address] [place], [place] [phone] Carlota Jin MD 1 [facility], [address] [phone] 01/15/2025 6:45 EDT Treatment [facility] [place] [address] [place], [place] [phone] Carlota Jin MD 1 [facility], [facility] 2 [place] [phone] 01/17/2025 6:45 EDT Treatment [facility] [place] [address] [place], [place] [phone] Carlota Jin MD 1 [facility], [facility] 2 [place] [phone] 01/19/2025 6:45 EDT Treatment [facility] [place] [address] [place], [place] [phone] Carlota Jin MD 1 [facility], [facility] 2 [place] [phone] 01/22/2025 6:45 EDT Treatment [facility] [place] [address] [place] [address] Carlota Jin MD 1 [facility], [facility] 2 [place] [phone] 01/24/2025 6:45 EDT Treatment [facility] [place] [address] [place], [place] [phone] Carlota Jin MD 1 [facility], [address] [phone] 01/26/2025 6:45 EDT Treatment [facility] [place] [address] [place], [place] [phone] Carlota Jin MD 1 [facility], [address] [phone] 01/29/2025 6:45 EDT Treatment [facility] [place] [address] [place], [place] [phone] Carlota Jin MD 1 [facility], [address] [phone] 01/31/2025 6:45 EDT Treatment [facility] [place] [address] [place], [place] [phone] Carlota Jin MD 1 [facility], [facility] 2 [place] [phone] 02/02/2025 6:45 EDT Treatment [facility] [place] [address] [place], [place] [phone] Carlota Jin MD 1 [facility], [facility] 2 [place] [phone] 02/05/2025 6:45 EDT Treatment [facility] [place] [address] [place], [place] [phone] Carlota Jin MD 1 [facility], [facility] 2 [place] [phone] 02/07/2025 6:45 EDT Treatment [facility] - [place] [address] [place], [place] [address] [phone] Jin MD 1 [facility], [facility] 2 [place] [phone] 02/09/2025 6:45 EDT Treatment [facility] [place] [address] [place] [address] [address] Jin MD 1 [facility], [facility] 2 [place] [phone] 02/12/2025 6:45 EDT Treatment [facility] [place] [address] [place], [place] [phone] Carlota Jin MD 1 [facility], [facility] 2 [place] [phone] 02/14/2025 6:45 EDT Treatment [facility] [address] [place], [place] [phone] Carlota Jin MD [address] [place] [phone] 02/16/2025 6:45 EDT Treatment [facility] [address] [place], [place] [phone] Carlota Jin MD [address] [place] [phone] 02/19/2025 6:45 EDT Treatment [facility] [address] [place] [phone] Carlota Jin MD [address] [place] [address], [address] [phone] 02/21/2025 6:[address] [facility] [address] [place], [place] [phone] Carlota Jin MD [address] [place] [phone] documented as of this encounter Procedures Procedure Name Priority Date/Time Associated Diagnosis Comments HEMODIALYSIS Routine 02/18/2024 6:34 EDT ESRD (end stage renal disease) ([facility]) documented in this encounter Visit Diagnoses Diagnosis ESRD (end stage renal disease) ([facility])- Primary End stage renal disease Anemia of chronic renal failure, unspecified CKD stage Hypoalbuminemia Other disorders of plasma protein metabolism Secondary hyperparathyroidism ([facility]) Secondary hyperparathyroidism (of renal origin) documented in this encounter Administered Medications Inactive Administered Medications - up to 3 most recent administrations Medication Order MAR Action Action Date Dose Rate Site calcium carbonate (TUMS) tablet 500 mg (200 mg elemental calcium) 2 Tablet 2 Tablet, oral, ONCE IN DIALYSIS, 1 dose, On Wed02/18/24 at 0700, Routine, DialysisIndications:ESRD (end stage renal disease) ([facility]),Secondary hyperparathyroidism ([facility]) Given 02/18/2024 6:50 EDT 2 Tablets epoetin ken (EPOGEN) 20,000 unit/2 mL injection 5,000 Units 5,000 Units, intravenous, ONCE IN DIALYSIS, 1 dose, On Wed02/18/24 at 0700, Routine, DialysisIndications:ESRD (end stage renal disease) ([facility]),Anemia of chronic renal failure, unspecified CKD stage Given 02/18/2024 6:50 EDT 5,000 Units heparin injection 9,000 Units 9,000 Units, intravenous, ONCE IN DIALYSIS, 1 dose, On Wed02/18/24 at 0700, Routine, Dialysis, Now x1 bolus 4500 units to be given at the beginning of dialysis 1500 units/hour to be given over the course of dialysis (9000 units total). Stop 1 hour prior to end of treatment. To be administered per Policy [id number].Indications:ESRD (end stage renal disease) ([facility]) Given 02/18/2024 6:50 EDT 9,000 Units LiquaCel liquid protein liquid 30 mL 30 mL, oral, ONCE IN DIALYSIS, 1 dose, On Wed02/18/24 at 0700, RoutineIndications:ESRD (end stage renal disease) ([facility]),Hypoalbuminemia Given 02/18/2024 6:50 EDT 30 mL documented in this encounter Orders Dialysis Count Last Ordered Date First Orde red Date HEMODIALYSIS 1 02/18/2024 documented in this encounter Care Teams Shed Boss Relationship Specialty Start Date End Date Ken Greer MD [address] [place] [address] PCP - General 07/07/23 documented as of this encounter
--- OUTSIDE RECORDS SUMMARY | 2024-12-05 12:08 | XMS_ITS | Encounter Summary ---
Author Organization [facility] Address [address] [place] [address] Care Team Providers Care Cigarette Book Maker Name Role Phone Ken Greer MD Primary Care Provider [phone] Encounter Details Date Type Department Care Team (Late st Contact Info) Description 02/09/2024 Documentation Visit [facility] [address] [place] [address] [facility] [address] [place] [address] Social History Tobacco Use Types Packs/Day Years [...] this encounter Progress Notes * Alexa Estrada, SENIOR COMPLIANCE OFFICER - 02/09/2024 1247 EDT Concrete Hopper Operator's Monthly Assessment UPDATE: SW met with pt while pt is on dialysis. Pt was sleeping and SW was unable to arouse pt to sign [facility] paperwork. SW waited until the end of dialysis, at which point pt was still very difficult to awakenand required a lot of help with waking up. Pts Hoda was present and she says that this is unusual for him. Pt did eventually somewhat become more alert but was unable to sign [facility]KA application forassistance with car payment. SW sent form home with the pt to sign when he was more awake. SW will continue to remain available. Current Living Situation: Lives with family and Lives with friends Lives with family Pt lives with his , Hoda, in their apartment in [place]. He rents the apartment and has a [...] care. Hospitalization in Previous 3 Months: Yes: 2/28-12/23 and 11/07-11/10 for diabetic foot infection, Covid [...] Patient/Family Strengths: Pt is friendly and engaging Interests/Spiritual/Christian Practice: No spiritual practices Depression Screening: Is [...] Contact Info) Description 12/06/2024 6:45 EST Treatment [facility] - [place] [address] [place], [place] [phone] Carlota Jin MD 1 [facility], Level [address] [place] [phone] 12/08/2024 6:45 EST Treatment [facility] - [place] [address] [place], [place] [id number] Carlota Jin MD 1 [facility], [facility] 2 [place] [phone] 12/11/2024 6:45 EST Treatment [facility] [place] [address] [place] [address] Carlota Jin MD 1 [facility], [facility] 2 [place] [phone] 12/13/2024 6:45 EST Treatment [facility] [address] [place], [place] [address] [phone] Carlota Jin MD 1 [facility], [facility] 2 [place] [phone] 12/15/2024 6:45 EST [facility] [address] [place] [address] Carlota Jin MD 1 [facility], [facility] 2 [place] [phone] 12/18/2024 6:45 EST Treatment [facility] [address] [place], [place] [phone] Carlota Jin MD 1 [facility], [facility] 2 [place] [phone] 12/20/2024 6:45 EST Treatment [facility] - [place] [address] [place], [place] [address] Carlota Jin MD 1 [facility], [facility] 2 [place] [phone] 12/22/2024 6:45 EST Treatment [facility] - [place] [address] [place], [place] [phone] Carlota Jin MD 1 [facility], [address] [phone] 12/25/2024 6:45 EST Treatment [facility] - [place] [address] [place], [place] [phone] Carlota Jin MD 1 [facility], [address] [phone] 12/27/2024 6:45 EST Treatment [facility] - [place] [address] [place], [place] [phone] Carlota Jin MD 1 [facility], [address] [phone] 12/29/2024 6:45 EST Treatment [facility] - [place] [address] [place], [place] [phone] Carlota Jin MD [address] [phone] 01/01/2025 6:45 EDT Treatment [facility] - [place] [address] [place], [place] [phone] Carlota Jin MD 1 [facility], [facility] 2 [place] [phone] 01/03/2025 6:45 EDT Treatment [facility] - [place] [address] [place], [place] [phone] Carlota Jin MD 1 [facility], [facility] 2 [place] [phone] 01/05/2025 6:45 EDT Treatment [facility] - [place] [address] [place], [place] [phone] Carlota Jin MD 1 [facility], [address] [phone] 01/08/2025 6:45 EDT Treatment [facility] - [place] [address] [place], [place] [phone] Carlota Jin MD [address] [place] [address], [address] [phone] 01/10/2025 6:45 EDT Treatment [facility] - [place] [address] [place], [place] [phone] Carlota Jin MD 1 [facility], [facility] 2 [place] [phone] 01/12/2025 6:45 EDT Treatment [facility] [place] [address] [place], [place] [phone] Carlota Jin MD 1 [facility], [facility] 2 [place] [phone] 01/15/2025 6:45 EDT Treatment [facility] - [place] [address] [place], [place] [id number] Carlota Jin MD 1 [facility], [facility] 2 [place] [phone] 01/17/2025 6:45 EDT Treatment [facility] - [place] [address] [place], [place] [phone] Carlota Jin MD 1 [facility], [facility] 2 [place] [phone] 01/19/2025 6:45 EDT Treatment [facility] - [place] [address] [place], [place] [phone] Carlota Jin MD 1 [facility], [address] [phone] 01/22/2025 6:45 EDT Treatment [facility] - [place] [address] [place], [place] [phone] Carlota Jin MD 1 [facility], [address] [phone] 01/24/2025 6:45 EDT Treatment [facility] [place] [address] [place], [place] [id number] Carlota Jin MD 1 [facility], [facility] 2 [place] [phone] 01/26/2025 6:45 EDT Treatment [facility] - [place] [address] [place], [place] [phone] Carlota Jin MD 1 [facility], Level [address] [place] [phone] 01/29/2025 6:45 EDT Treatment [facility] - [place] [address] [place], [place] [id number] Carlota Jin MD 1 [facility], [facility] 2 [place] [phone] 01/31/2025 6:45 EDT Treatment [facility] - [place] [address] [place], [place] [id number] Carlota Jin MD 1 [facility], [facility] 2 [place] [phone] 02/02/2025 6:45 EDT Treatment [facility] [place] [address] [place], [place] [address] Carlota Jin MD 1 [facility], [facility] 2 [place] [phone] 02/05/2025 6:45 EDT Treatment [facility] [place] [address] [place] [address] Carlota Jin MD 1 [facility], [facility] 2 [place] [phone] 02/07/2025 6:45 EDT Treatment [facility] - [place] [address] [place], [place] [address] Carlota Jin MD 1 [facility], [facility] 2 [place] [phone] 02/09/2025 6:45 EDT Treatment [facility] - [place] [address] [place], [place] [phone] Carlota Jin MD 1 [facility], [facility] 2 [place] [phone] 02/12/2025 6:45 EDT Treatment [facility] - [place] [address] [place], [place] [id number] Carlota Jin MD 1 [facility], [facility] 2 [place] [phone] 02/14/2025 6:45 EDT Treatment [facility] [place] [address] [place], [place] [phone] Carlota Jin MD [address] [place] [address], [facility] 2 [place] [phone] 02/16/2025 6:45 EDT Treatment [facility] - [place] [address] [place], [place] [phone] Carlota Jin MD [address] [place] [address], [facility] 2 [place] [phone] 02/19/2025 6:45 EDT Treatment [facility] - [place] [address] [place], [place] [phone] Carlota Jin MD 1 [facility], [facility] 2 [place] [phone] 02/21/2025 6:45 EDT Treatment [facility] [place] [address] [place], [place] [phone] Carlota Jin MD 1 [facility], Level [address] [place] [phone] documented as of this encounter Visit Diagnoses Not on filedocumented in this encounter Care Teams Cigarette Book Maker Relationship Specialty Start Date End Date Ken Greer MD [facility] [place] [address] PCP - General 07/07/23 documented as of this encounter
--- OUTSIDE RECORDS SUMMARY | 2024-12-05 12:08 | XMS_ITS | Encounter Summary ---
Author Organization [facility] Address [address] [place] [address] Care Team Providers Care Materials Tech Name Role Phone Ken Greer MD Primary Care Provider [phone] Kiel Powers Unavailable Unavailable Encounter Details Date Type Department Care Team (Late st Contact Info) Description 02/21/2024 Documentation Visit [facility] [address] [place], [place] [id number] Marcela Cox, RN Social History Tobacco Use [...] Info) Description 12/06/2024 6:45 EST Treatment [facility] - [place] [address] [place], [place] [id number] Carlota Jin MD [address] [place] [address], [facility] 2 [place] [phone] 12/08/2024 6:45 EST Treatment [facility] - [place] [address] [place], [place] [id number] Carlota Jin MD [address] [place] [address] 2 [place] [phone] 12/11/2024 6:45 EST Treatment [facility] - [place] [address] [place] [id number] Carlota Jin MD [address] [place] [address] 2 [place] [phone] 12/13/2024 6:45 EST Treatment [facility] [address] [place], [place] [id number] Carlota Jin MD 1 [facility] Level 2 [place] [phone] 12/15/2024 6:45 EST Treatment [facility] - [place] [address] [place], [place] [id number] Carltoa Jin MD 1 [facility], [facility] 2 [place] [phone] 12/18/2024 6:45 EST Treatment [facility] - [place] [address] [place], [place] [id number] Carlota Jni MD 1 [facility], [facility] 2 [place] [phone] 12/20/2024 6:45 EST Treatment [facility] - [place] [address] [place] [id number] Carlota Jin MD 1 [facility], [facility] 2 [place] [phone] 12/22/2024 6:45 EST Treatment [facility] [address] [place] [id number] Carlota Jin MD 1 [facility], [facility] 2 [place] [phone] 12/25/2024 6:45 EST Treatment [facility] [place] [address] [place], [place] [id number] Carlota Jin MD 1 [facility], [facility] 2 [place] [phone] 12/27/2024 6:45 EST Treatment [facility] - [place] [address] [place], [place] [id number] Carlota Jin MD 1 [facility], [facility] 2 [place] [phone] 12/29/2024 6:45 EST Treatment [facility] - [place] [address] [place], [place] [id number] Carlota Jin MD 1 [facility], [facility] 2 [place] [phone] 01/01/2025 6:45 EDT Treatment [facility] - [place] [address] [place], [place] [id number] Carlota Jin MD 1 [facility], [facility] 2 [place] [phone] 01/03/2025 6:45 EDT Treatment [facility] - [place] [address] [place], [place] [id number] Carlota Jin MD 1 [facility], [facility] 2 [place] [phone] 01/05/2025 6:45 EDT Treatment [facility] - [place] [address] [place], [place] [id number] Carlota Jin MD 1 [facility], [facility] 2 [place] [phone] 01/08/2025 6:45 EDT Treatment [facility] - [place] [address] [place], [place] [id number] Carlota Jin MD 1 [facility], [facility] 2 [place] [phone] 01/10/2025 6:45 EDT Treatment [facility] - [place] [address] [place], [place] [id number] Carlota Jin MD 1 [facility], [facility] 2 [place] [phone] 01/12/2025 6:45 EDT Treatment [facility] - [place] [address] [place], [place] [id number] Carlota Jin MD 1 [facility], [facility] 2 [place] [phone] 01/15/2025 6:45 EDT Treatment [facility] - [place] [address] [place] [id number] Carlota Jin MD 1 [facility], [facility] 2 [place] [phone] 01/17/2025 6:45 EDT Treatment [facility] - [place] [address] [place] [id number] Carlota Jin MD 1 [facility], [facility] 2 [place] [phone] 01/19/2025 6:45 EDT Treatment [facility] - [place] [address] [place], [place] [id number] Carlota Jin MD 1 [facility], [facility] 2 [place] [phone] 01/22/2025 6:45 EDT Treatment [facility] - [place] [address] [place], [place] [id number] Carlota Jin MD 1 [facility], [facility] 2 [place] [phone] 01/24/2025 6:45 EDT Treatment [facility] - [place] [address] [place], [place] [id number] Carlota Jin MD 1 [facility], [facility] 2 [place] [phone] 01/26/2025 6:45 EDT Treatment [facility] - [place] [address] [place], [place] [id number] Carlota Jin MD 1 [facility], [facility] 2 [place] [phone] 01/29/2025 6:45 EDT Treatment [facility] - [place] [address] [place], [place] [id number] Carlota Jin MD 1 [facility], [facility] 2 [place] [phone] 01/31/2025 6:45 EDT Treatment [facility] - [place] [address] [place], [place] [id number] Carlota Jin MD 1 [facility], [facility] 2 [place] [phone] 02/02/2025 6:45 EDT Treatment [facility] - [place] [address] [place], [place] [id number] Carlota Jin MD 1 [facility], [facility] 2 [place] [phone] 02/05/2025 6:45 EDT Treatment [facility] - [place] [address] [place] [id number] Carlota Jin MD 1 [facility], [facility] 2 [place] [phone] 02/07/2025 6:45 EDT Treatment [facility] - [place] [address] [place], [place] [id number] Carlota Jin MD 1 [facility], [address] [phone] 02/09/2025 6:45 EDT Treatment [facility] - [place] [address] [place], [place] [id number] Carlota Jin MD 1 [facility], [address] [phone] 02/12/2025 6:45 EDT Treatment [facility] - [place] [address] [place], [place] [id number] Carlota Jin MD 1 [facility], [facility] 2 [place] [phone] 02/14/2025 6:45 EDT Treatment [facility] - [place] [address] [place], [place] [id number] Carlota Jin MD 1 [facility], [facility] 2 [place] [phone] 02/16/2025 6:45 EDT Treatment [facility] - [place] [address] [place], [place] [id number] Carlota Jin MD [address] [phone] 02/19/2025 6:45 EDT Treatment [facility] - [place] [address] [place], [place] [id number] Carlota Jin MD 1 [facility], [address] [phone] 02/21/2025 6:45 EDT Treatment [facility]ysi - [place] [address] [place], [place] [id number] Carlota Jin MD [address] [place] [phone] documented as of this encounter Visit Diagnoses Not on filedocumented in this encounter Additional Health Concerns Infection Onset Date Last Indicated Resolved Time COVID-19 Comment:Collected @ [facility]. 03/12/2024 03/13/2024 04/01/2024 22: 15 EDT R/O COVID-19 05/30/2024 05/30/2024 05/30/2024 20:5 0 EDT documented as of this encounter Care Teams Materials Tech Relationship Specialty Start Date End Date Ken Greer MD [facility] [place] [id number] PCP - General 07/07/23 Kiel Powers Tool Salvage Worker Nephrology 05/31/24 documented as of this encounter
--- OUTSIDE RECORDS SUMMARY | 2024-12-05 12:08 | XMS_ITS | Encounter Summary ---
Author Organization [facility] Address [address] [place] [address] Care Team Providers Care Retirement Village Manager Name Role Phone Ken Greer MD Primary Care Provider [phone] Encounter Details Date Type Department Care Team (Late st Contact Info) Description 02/04/2024 Documentation Visit [address] [place], [place] [address] Melissa Crespo, RN Social History Tobacco Use [...] Treatment [facility] - [place] [address] [place], [place] [id number] Carlota Jin MD 1 [facility], [facility] 2 [place] [phone] 12/08/2024 6:45 EST Treatment [facility]ysi - [place] [address] [place], [place] [id number] Carlota Jin MD 1 [facility] 2 [place] [phone] 12/11/2024 6:45 EST Treatment [facility] [place] [address] [place], [place] [id number] Carlota Jin MD 1 [facility], [facility] 2 [place] [phone] 12/13/2024 6:45 EST Treatment [facility] Dialysi [facility] [address] [place], [place] [id number] Carl[facility] MD 1 [facility], [facility] 2 [place] [phone] 12/15/2024 6:45 EST Treatment [facility]ysi - [place] [address] [place], [place] [id number] Carlota Jin MD 1 [facility], [facility] 2 [place] [phone] 12/18/2024 6:45 EST Treatment [facility] [place] [address] [place], [place] [id number] Carlota Jin MD 1 [facility], [facility] 2 [place] [phone] 12/20/2024 6:45 EST Treatment [facility] [place] [address] [place], [place] [id number] Carlota Jin MD 1 [facility], [facility] 2 [place] [phone] 12/22/2024 6:45 EST Treatment [facility] Dialysi [facility] [address] [place], [place] [id number] Carlota Jin MD 1 [facility], [facility] 2 [place] [phone] 12/25/2024 6:45 EST Treatment [facility] Dialysi [facility] [address] [place], [place] [id number] Carlota Jin MD 1 [facility], [facility] 2 [place] [phone] 12/27/2024 6:45 EST Treatment [facility] [place] [address] [place], [place] [id number] Carlota Jin MD 1 [facility], [facility] 2 [place] [phone] 12/29/2024 6:45 EST Treatment [facility] - [place] [address] [place], [place] [id number] Carlota Jin MD 1 [facility], [address] [phone] 01/01/2025 6:45 EDT Treatment [facility] [place] [address] [place], [place] [id number] Carlota Jin MD 1 [facility], [address] [phone] 01/03/2025 6:45 EDT Treatment [facility] - [place] [address] [place], [place] [id number] Carlota Jin MD 1 [facility], [address] [phone] 01/05/2025 6:45 EDT Treatment [facility] [place] [address] [place], [place] [id number] Carlota Jin MD [address] [place] [address], [facility] 2 [place] [phone] 01/08/2025 6:45 EDT Treatment [facility] [address] [place], [place] [id number] Carlota Jin MD 1 [facility], Level [address] [place] [phone] 01/10/2025 6:45 EDT Treatment [facility] [address] [place], [place] [id number] Carlota Jin MD 1 [facility], [facility] 2 [place] [phone] 01/12/2025 6:45 EDT Treatment [facility] [address] [place], [place] [id number] Carlota Jin MD 1 [facility], [facility] 2 [place] [phone] 01/15/2025 6:45 EDT Treatment [facility] [place] [address] [place], [place] [id number] Carlota Jin MD 1 [facility], [facility] 2 [place] [phone] 01/17/2025 6:45 EDT Treatment [facility] [address] [place], [place] [id number] Carlota Jin MD 1 [facility], [facility] 2 [place] [phone] 01/19/2025 6:45 EDT Treatment [facility] [address] [place], [place] [id number] Carlota Jin MD 1 [facility], [facility] 2 [place] [phone] 01/22/2025 6:45 EDT Treatment [facility] - [place] [address] [place], [place] [id number] Carlota Jin MD 1 [facility], [facility] 2 [place] [phone] 01/24/2025 6:45 EDT Treatment [facility] - [place] [address] [place], [place] [id number] Carlota Jin MD 1 [facility], [facility] 2 [place] [phone] 01/26/2025 6:45 EDT Treatment [facility] [place] [address] [place], [place] [id number] Carlota Jin MD 1 [facility], [facility] 2 [place] [phone] 01/29/2025 6:45 EDT Treatment [facility] [place] [address] [place], [place] [id number] Carlota Jin MD 1 [facility], [facility] 2 [place] [phone] 01/31/2025 6:45 EDT Treatment [facility] - [place] [address] [place], [place] [id number] Carlota Jin MD 1 [facility], [facility] 2 [place] [phone] 02/02/2025 6:45 EDT Treatment [facility] - [place] [address] [place], [place] [id number] Carlota Jin MD 1 [facility], [facility] 2 [place] [phone] 02/05/2025 6:45 EDT Treatment [facility] [place] [address] [place], [place] [id number] Carlota Jin MD 1 [facility], [facility] 2 [place] [phone] 02/07/2025 6:45 EDT Treatment [facility] [place] [address] [place] [address] Carlota Jin MD 1 [facility], [address] [phone] 02/09/2025 6:45 EDT Treatment [facility] - [place] [address] [place], [place] [id number] Carlota Jin MD 1 [facility], [address] [phone] 02/12/2025 6:45 EDT Treatment [facility] - [place] [address] [place] [address] Carlota Jin MD 1 [facility], [facility] 2 [place] [phone] 02/14/2025 6:45 EDT Treatment [facility] [place] [address] [place], [place] [id number] Carlota Jin MD 1 [facility], [facility] 2 [place] [phone] 02/16/2025 6:45 EDT Treatment [facility] Dial[facility]i [facility] [address] [place], [place] [id number] Carlota Jin MD 1 [facility], [facility] [address] [place] [phone] 02/19/2025 6:45 [facility] [address] [place], [place] [id number] Carlota Jin MD [address] [place] [address], [facility] [address] [place] [phone] 02/21/2025 6:45 EDT Treatment [facility] [address] [place], [place] [id number] Carlota Jin MD [address] [place] [address], [facility] [address] [place] [phone] documented as of this encounter Visit Diagnoses Not on filedocumented in this encounter Care Teams Retirement Village Manager Relationship Specialty Start Date End Date [place] [address] PCP - General 07/07/23 documented as of this encounter
--- OUTSIDE RECORDS SUMMARY | 2024-12-05 12:08 | XMS_ITS | Encounter Summary ---
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 Name Role Phone Ken Greer MD Primary Care Provider [phone] Encounter Details Date Type Department Care Team (Latest Contact Info) Description 02/14/2024 6:45 EDT Treatment [facility] [address] [place], [place] [phone] Carlota Jin MD 1 [facility], Level [address] [place] [address] ESRD (end stage renal disease) ([facility]) (Primary Dx); Anemia of chronic renal failure, unspecified CKD stage; Hypoalbuminemia; Secondary hyperparathyroidism ([facility]) Social History Tobacco Use Types Packs/Day Years [...] - Temperature - - Respiratory Rate 16 02/14/2024 0624 EDT Oxygen Saturation - - Inhaled Oxygen Concentration - - Weight 88.6 kg (195 lb 5.2 oz) 02/14/2024 0626 E DT Height - - Body [...] Flowsheet Note - Marcela Cox RN - 02/14/2024 1326 EDT 02/14/24 1054 Post-Hemodialysis Assessment Total Blood Processed (L) 90.45 Liters On Line Clearance: spKt/V 1.67 spKt/V Dialyzer Clearance Lightly streaked Treatment UFR (ml:kg:hr) 7.05 ml:kg:hr Final Critline Profile (%/hr) -1.12 Final Profile Profile A Critline refill Negative (24.3-24.0 11 minute refill) Fluid Removed (L) 2.6 L Post-Dialysis Scale Weight 107 kg (235 lb 14.3 oz) Wheelchair Weight 20.9 kg (46 lb 1.2 oz) Prosthesis Weight 0 kg (0 lb) Post-Treatment Weight (kg) 86.1 Treatment Weight Change (kg) 2.5 kg Day Target Weight (kg) 86.5 Post Sitting/Lying BP (!) 184/93 Post Sitting/Lying pulse 70 Temp 36 ??C (96.8 ??F) Temp src Temporal Post access assessment AVF/AFG Hemostasis achieved Yes Note 10 minute hold vboth sites Orientation Alert and Oriented x3 Yes Time Yes Place Yes Person Yes Cooperative Yes Disoriented No Discharge Ambulation Methods Departs via w/c Wrap up items Patient Response to Treatment Tolerated tx well. Removed 2.6L UF goal without difficulty. Comments No issues during tx, no concerns voiced post tx. * Dialysis Comprehensive - Carlota Jin MD - 02/14/2024 0645 EDT Images from the original note were not included. Dialysis Provider's Monthly Comprehensive Assessment Dialysis Unit: [facility] ESRD Etiology: Type 2 diabetes mellitus with diabetic chronic kidney disease (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) ESRD (end stage renal disease) ([facility]) Primary hypertension [I10] Hearing loss Herniation of lumbar intervertebral disc with radiculopathy Hyperlipidemia Proteinuria Right sided numbness Secondary hyperparathyroidism ([facility]) TIA (transient ischemic attack) Type II or unspecified type diabetes mellitus with neurological manifestations, uncontrolled(250.62) Encounter for immunization Hypoalbuminemia Anemia of chronic renal failure Abnormal albumin Cellulitis and abscess of foot, except toes Encounter for therapeutic drug monitoring Diabetic foot infection ([facility]) [E11.628, L08.9] COVID Type 2 diabetes mellitus with chronic kidney disease on chronic dialysis, with long-term current use of insulin ([facility]) [E11.22, N18.6, Z99.2, Z79.4] Anemia of chronic renal failure, stage 5 ([facility]) [N18.5, D63.1] ESRD on hemodialysis ([facility]) Treatment Modality: Patient received information regarding [...] No Listing On-Hold? No No [facility] Comments Patient does not meet transplant criteria due to daily smoking cigarettes pt referred to transplant @ [facility] Current Dialysis Prescription: Hemodialysis Therapy Plan In-Center Hemodialysis 3 times a week Prescribed Weight (Kg): 85 Treatments Per Week: 3 Dialyzer: OPTIFLUX 250NR [...] Sign Review Prescribed Weight: Prescribed Weight (Kg): 86.5 I reviewed the patient's volume status with Nursing: Yes Average Interdialytic Fluid Gains: 02/09/2024 6:22 02/09/2024 10:56 02/11/2024 6:24 02/11/2024 6:28 02/11/2024 10:50 02/14/2024 6:24 02/14/2024 6:26 InterDialytic +/- Gain/Loss 1.1 -0.1 -0.1 3.7 3.7 Wt (pre) 87.2 85.4 85.4 88.6 88.6 Wt (post) 85.5 84.9 Treatment UFR (ml:kg:hr) 4.89 ml:kg:hr 1.45 ml:kg:hr BP (post) 189/100 190/96 190/96 194/97 194/97 Pulse(post) 72 78 78 74 74 Resp (/min) 16 16 Volume and blood pressure have been addressed with the following changes: None Consistently able to achieve estimated dry weight? Yes Blood pressure is in range for patient? Yes Any adverse intradialytic symptoms? Yes: some cramping Plan: Managed per protocol Physical Exam Constitutional No distress, somnolent Respiratory: CTAB, unlabored breathing Cardiac: distant Abdomen: soft Extremities: Trace edema Hospitalization Hospitalization in Previous 1 Month: No Emergency Room Visit in Previous 1 Month: No Access Management Current LDAs: Hemodialysis Arteriovenous Access 02/13/19 (Active) AV Fistula Present 02/14/24 0639 Site Assessment Clean;Dry;Intact;Bruit heard;Thrill felt 02/14/24 0639 Current State Active 02/14/24 0639 Status Accessed 02/14/24 0639 Is Maturing N 02/14/24 0639 Local Anesthetic None 02/14/24 0639 Site Prep Chlorhexidine 02/14/24 0639 Venous Needle Size 15 G 02/14/24 0639 Arterial/Generic Needle Size 15 G 02/14/24 0639 Accessed by: Cecile Cortes 02/14/24 0639 Access Attempts 2 02/14/24 0639 Dressing Status/Care Clean/Dry/Intact 02/07/24 0649 Dressing Intervention Other (Comment) 12/22/23 1134 Patient has AVF/AVG as primary access: Yes Patient has Catheter as primary access >90 days: No Home Medication Review/Update Current Outpatient Medications: acetaminophen (TYLENOL) 325 mg tablet, Take 2 Tablets by mouth every 6 hours., Disp: , Rfl: 0 amLODIPine (NORVASC) 10 mg tablet, , Disp: , Rfl: apixaban (ELIQUIS) 5 mg tablet, Take 1 Tablet by mouth 2 times daily for 90 days., Disp: 180 Tablet, Rfl: 0 atorvastatin (LIPITOR) 40 mg tablet, Take 1 Tablet by mouth daily., Disp: , Rfl: calcium carbonate (TUMS) 200 mg calcium (500 mg) tablet,chewable, Take 1 Tablet by mouth 3 times daily with meals., Disp: , Rfl: carvediloL (COREG) 12.5 mg tablet, Take 1 Tablet by mouth 2 times daily., Disp: , Rfl: cholecalciferol, Vitamin D3, 25 mcg (1,000 unit) tablet, Take 1 Tablet by mouth., Disp: , Rfl: dilTIAZem (CARDIZEM CD) 120 mg capsule, Take 1 Capsule by mouth daily., Disp: 30 Capsule, Rfl: 0 DULoxetine (CYMBALTA) 20 mg delayed release capsule, Take 1 Capsule by mouth 2 times daily. (Patient not taking: Reported on 02/08/2024), Disp: , Rfl: famotidine (PEPCID) 40 mg tablet, Take 1 Tablet by mouth daily., Disp: , Rfl: FLOVENT HFA 110 mcg/actuation inhaler, Inhale 1 Puff as directed., Disp: , Rfl: insulin aspart U-100 (NOVOLOG FLEXPEN) 100 unit/mL (3 mL) injectable pen, Units 66-140->0U,141-180->0U, 181-210 ->1U, 211-250->2U, 251-299->3U, > 299 -> 5U, Disp: 4 mL, Rfl: 0 insulin pen needles 32G x 5/32, Brand: [employer] Ultra Fine Anny. ISS TID and levemir once daily, Disp: 100 Each, Rfl: 11 LEVEMIR FLEXPEN 100 unit/mL (3 mL) injectable pen, Inject 32 Units into the skin daily., Disp: , Rfl: oxyCODONE (ROXICODONE) 5 mg immediate release tablet, Take 1 Tablet by mouth every 6 hours as needed for Pain., Disp: , Rfl: oxyCODONE-acetaminophen (PERCOCET) 5-325 mg per tablet, TAKE ONE TABLET BY MOUTH TWICE A DAY NEEDED FOR PAIN, MAXIMUM DAILY DOSE = 2 TABLETS (Patient not taking: Reported on 02/08/2024), Disp: , Rfl: polyethylene glycol 3350 (MIRALAX) 17 gram packet, Take 17 g by mouth daily as needed for Constipation., Disp: , Rfl: pregabalin (LYRICA) 100 mg capsule, Take 1 Capsule by mouth 2 times daily. Daily Max: 200 mg, Disp:60 Capsule, Rfl: 0 SANTYL ointment, , Disp: , Rfl: sevelamer hydrochloride (RENAGEL) 800 mg tablet, Take 2 Tablets by mouth 3 times daily with meals.,Disp: , Rfl: sildenafil citrate (VIAGRA) 100 mg tablet, Take 1 Tablet by mouth as needed., Disp: , Rfl: Adjustment made to home medication: No Dialysis Medication Review Dialysis Plan Order Summary All Current Orders Interval Duration Due Hemodialysis Therapy Plan Dialysis Treatment In-Center Hemodialysis 3 times a week Week of 02/13/2024 Routine, ONE TIME Starting when released Prescribed Weight (Kg): 85 Treatments Per Week: 3 Dialyzer: OPTIFLUX 250NR Dialysate concentrate: Potassium 2 mEq/L Calcium 2.5 mEq/L Sodium NA+: Other Please specify: 136 Dialysate: Bicarb (mEq/L): 33 Dialysate Temperature (Centigrade): 36.5 BFR mL/min: 400 mL/min Dialysate Flow Rate (mL/min): 800 mL/min Duration of Treatment (hrs): 4 Hours Primary Access Site: AV Fistula Needle gauge: 15g 1 Dialysis - UF Profile: None Dialysis Last released: Wed02/14/2024 Oxygen Therapy (Age 3 yrs. to Adult) [...] released Until Discontinued, Pain, Dialysis Last released: Wed02/04/2024 diphenhydrAMINE (BENADRYL) capsule 25 mg PRN PRN 25 mg, oral, EVERY 6 HOURS PRN Starting when released Until Discontinued, Itching, Other, transfusion reaction, Dialysis Last released: Never heparin injection 9,000 Units Every visit Every visit 9,000 Units, intravenous, ONCE IN DIALYSIS Starting when released, Dialysis Now x1 bolus 4500 units to be given at the beginning of dialysis 1500 units/hour to be given over the course of dialysis (9000 units total). Stop 1 hour prior to end of treatment. To be administered per Policy [id number]. Last released: Wed02/14/2024 sodium chloride 0.9 % BOLUS 100 mL PRN PRN 100 mL, intravenous, PRN Starting when released Until Discontinued, Other, hypotension or cramping,Dialysis Last released: Never Dialysis Weekly Labs Complete Blood Count Weekly: Wed02/16/2024 Routine, ONE TIME Starting when released, Blood, Venous, Blood Results Release to Patient (Note: Choosing Manual Release will only block results from tests performed at [facility] and does not apply for Miscellaneous Test Order): Immediate via MyChart Portal Dialysis Last released: Wed02/09/2024 Dialysis Monthly Labs Dialysis Iron (Includes Iron, IBC, and Ferritin) - Nephrology Use Only On the Wed of every 1 month Wed02/28/2024 Routine, ONE TIME Starting when released, Blood, Venous, Blood Results Release to Patient (Note: Choosing Manual Release will only block results from tests performed at [facility] and does not apply for Miscellaneous Test Order): Immediate via TuneInt Portal Dialysis Last released: Wed01/24/2024 Dialysis Routine- Dialysis Use Only On the Wed of every 1 month Wed02/28/2024 Routine, ONE TIME Starting when released, Blood, Blood, Venous Results Release to Patient (Note: Choosing Manual Release will only block results from tests performed at [facility] and does not apply for Miscellaneous Test Order): Immediate via T[employer]Int Portal Dialysis Last released: Wed01/24/2024 Postdialysis BUN with URR Calculation On the Wed of every 1 month Wed02/28/2024 Routine, ONE TIME Starting when released, Blood, Blood, Venous Results Release to Patient (Note: Choosing Manual Release will only block results from tests performed at [facility] and does not apply for Miscellaneous Test Order): Immediate via T[employer] Portal Dialysis Last released: Wed01/24/2024 Dialysis Quarterly Labs PTH Intact On the Wed of every 3 months Wed04/24/2024 Routine, ONE TIME Starting when released, Blood, Venous, Blood Results Release to Patient (Note: Choosing Manual Release will only block results from tests performed at [facility] and does not apply for Miscellaneous Test Order): Immediate via T[employer]Int Portal Dialysis Last released: Wed01/24/2024 Dialysis Annual Labs - [place] [facility] Hepatitis- Dialysis Use Only On the Wed of every 12 months Wed10/30/2024 Routine, ONE TIME Starting when released, Blood, Blood, Venous Results Release to Patient (Note: Choosing Manual Release will only block results from tests performed at [facility] and does not apply for Miscellaneous Test Order): Immediate via T[employer]Int Portal Dialysis Last released: Wed10/27/2023 Folate On the Mon of every 12 months Wed10/30/2024 Routine, ONE TIME Starting when released, Blood, Venous, Blood Results Release to Patient (Note: Choosing Manual Release will only block results from tests performed at [facility] and does not apply for Miscellaneous Test Order): Immediate via MyChart Portal Dialysis Last released: Wed10/27/2023 Vitamin B12 On the Wed of every 12 months Wed10/30/2024 Routine, ONE TIME Starting when released, Blood, Venous, Blood Results Release to Patient (Note: Choosing Manual Release will only block results from tests performed at [facility] and does not apply for Miscellaneous Test Order): Immediate via MyChart Portal Dialysis Last released: Wed10/27/2023 Vitamin D (25,OH) On the Mon of every 12 months Wed10/30/2024 Routine, ONE TIME Starting when released, Blood, Venous, Blood Results Release to Patient (Note: Choosing Manual Release will only block results from tests performed at [facility] and does not apply for Miscellaneous Test Order): Immediate via MyChart Portal Dialysis Last released: Wed10/27/2023 Dialysis Annual Labs - April Hepatitis C Ab w Reflex to HCV RNA by PCR On the Wed of every 12 months Wed04/24/2024 Routine, ONE TIME Starting when released, Blood, Venous, Blood Results Release to Patient (Note: Choosing Manual Release will only block results from tests performed at [facility] and does not apply for Miscellaneous Test Order): Immediate via MyChart Portal Dialysis Last released: Wed04/26/2023 HEMODIALYSIS ANEMIA MEDS Medications epoetin ken (EPOGEN) 20,000 unit/2 mL injection 4,000 Units 3 times a week Week of 02/13/2024 4,000 Units, intravenous, ONCE IN DIALYSIS Starting when released, Dialysis Last released: Wed02/14/2024 HEMODIALYSIS NUTRITIONAL SUPPLEMENTS Nutritional Supplements LiquaCel liquid protein liquid 30 mL Every visit Every visit 30 mL, oral, ONCE IN DIALYSIS Starting when released Last released: Wed02/14/2024 HEMODIALYSIS CKD MBD MEDS Medications calcium carbonate (TUMS) tablet 500 mg (200 mg elemental calcium) 2 Tablet Every visit Every visit 2 Tablet, oral, ONCE IN DIALYSIS Starting when released, Dialysis Last released: Wed02/14/2024 Adjustment made to dialysis medication: No Laboratory Results Dialysis Adequacy: spKt/V: 1.36 (Calculated from:; BUN Pre-Dialysis: 72 mg/dL at 01/24/2024 13:00; BUN Post-Dialysis: 23mg/dL at 01/24/2024 13:00; Pre-Treatment Weight (kg): 90 at 01/24/2024 6:24; Post-Treatment Weight (kg): 86.5 at 01/24/2024 10:55; Duration of Treatment (minutes): 242 minutes at 01/24/2024 10:42) Plan: Continue current dialysis prescription Anemia Management: Lab Results Component Value Date WBC 9.64 02/09/2024 HGB 7.9 (L) 02/09/2024 HGB 8.1 (L) 02/02/2024 HGB 8.3 (L) 01/26/2024 PLT 430 (H) 02/09/2024 FOLATE >24.0 10/27/2023 [id number] 607 10/27/2023 FERRITIN 645 (H) 01/24/2024 Current GEORGE/Dose: HEMODIALYSIS ANEMIA MEDS epoetin ken (EPOGEN) 20,000 unit/2 mL injection 4,000 Units 4,000 Units, intravenous, 3 times a week, ONCE [...] Management: Lab Results Component Value Date LABALBU 2.7 (L) 01/24/2024 ALKPHOS 107 01/24/2024 PHOS 6.9 (H) 01/24/2024 CALCIUM 8.8 01/24/2024 CALCCA 9.8 01/24/2024 PTH 329 (H) 01/24/2024 Vitamin D: cholecalciferol (Vitamin D3) - 25 mcg (1,000 unit) sevelamer hydrochloride - 800 mg This patient does not have an active medication from one of the medication groupers. Plan: Managed per protocol Potassium Management: Lab Results Component Value Date K 5.3 (H) 01/24/2024 Prescribed Potassium Concentrate: HEMODIALYSIS Ordered at: 02/14/24 0624 Dialysate concentrate: Potassium 2 mEq/L Calcium 2.5 mEq/L 02/14/2024 6:24 Last Dialysis Prescription released on: Selected bath: Potassium 2 mEq/L Calcium 2.5 mEq/L sevelamer hydrochloride - 800 mg Plan: Managed per protocol Nutrition: Lab Results Component Value Date LABALBU 2.7 (L) 01/24/2024 TP 6.4 12/19/2023 NA 136 01/24/2024 SERGLU 389 (H) 12/20/2023 HGBA1C 11.6 (H) 11/07/2023 Protein Supplements: This patient does not have an active medication from one of the medication groupers. Plan: Managed per protocol Comments: Ongoing difficulty talking to Xander while on dialysis due to somnolence. I did talk to his abouthis foot. He was seen by vascular surgery at [facility] who recommended amputation since it is not healingwith conservative management even though his circulation is good. They will be getting a second opinion at [facility]. He is also followed by [facility]. Antibiotics are complete soit will be important to watch for infection. She looks at every day and does not think it is currently infected. Ongoing issues with dietary/medication adherence, or at least discussions about adherence. Current anemia possibly 2/2 underlying infection, will increase EPO. Carlota Jin MD 02/14/24 documented in this encounter Plan of Treatment Upcoming Encounters Date Type Department Care Team (Late st Contact Info) Description 12/06/2024 6:45 EST Treatment [facility] [place] [address] [place], [place] [phone] Carlota Jin MD [address] [place] [address], [facility] [address] [place] [phone] 12/08/2024 6:45 EST Treatment [facility] [place] [address] [place], [place] [phone] Carlota Jin MD [address] [place] [address], [facility] [address] [place] [phone] 12/11/2024 6:45 EST Treatment [facility] [place] [address] [place], [place] [phone] Carlota Jin MD 1 [facility], [facility] [address] [place] [phone] 12/13/2024 6:45 EST Treatment [facility] [place] [address] [place] [address] Carlota Jin MD 1 [facility], [facility] [address] [place] [phone] 12/15/2024 6:45 EST Treatment [facility] [place] [address] [place], [place] [phone] Carlota Jin MD 1 [facility], [address] [phone] 12/18/2024 6:45 EST Treatment [facility] [place] [address] [place], [place] [phone] Carlota Jin MD 1 [facility], [address] [phone] 12/20/2024 6:45 EST Treatment [facility] [place] [address] [place], [place] [phone] Carlota Jin MD 1 [facility], [facility] [address] [place] [phone] 12/22/2024 6:45 EST Treatment [facility] [place] [address] [place], [place] [phone] Carlota Jin MD 1 [facility], [facility] [address] [place] [phone] 12/25/2024 6:45 EST Treatment [facility] [place] [address] [place], [place] [phone] Carlota Jin MD 1 [facility], [facility] [address] [place] [phone] 12/27/2024 6:45 EST Treatment [facility] [place] [address] [place], [place] [phone] Carlota Jin MD 1 [facility], [facility] [address] [place] [phone] 12/29/2024 6:45 EST Treatment [facility] [place] [address] [place] [address] Carlota Jin MD 1 [facility], [facility] [address] [place] [phone] 01/01/2025 6:45 EDT Treatment [facility] [place] [address] [place], [place] [address] Carlota Jin MD 1 [facility], [facility] [address] [place] [phone] 01/03/2025 6:45 EDT Treatment [facility] [place] [address] [place], [place] [phone] Carlota Jin MD 1 [facility], [facility] [address] [place] [phone] 01/05/2025 6:45 EDT Treatment [facility] [place] [address] [place], [place] [phone] Carlota Jin MD 1 [facility], [facility] [address] [place] [phone] 01/08/2025 6:45 EDT Treatment [facility] [place] [address] [place], [place] [phone] Carlota Jin MD 1 [facility], [address] [phone] 01/10/2025 6:45 EDT Treatment [facility] [place] [address] [place], [place] [phone] Carlota Jin MD 1 [facility], [address] [phone] 01/12/2025 6:45 EDT Treatment [facility] [place] [address] [place], [place] [phone] Carlota Jin MD [address] [phone] 01/15/2025 6:45 EDT Treatment [facility] [place] [address] [place], [place] [phone] Carlota Jin MD [address] [phone] 01/17/2025 6:45 EDT Treatment [facility] [place] [address] [place], [place] [phone] Carlota Jin MD 1 [facility], [facility] [address] [place] [phone] 01/19/2025 6:45 EDT Treatment [facility] [place] [address] [place], [place] [phone] Carlota Jin MD 1 [facility], [facility] [address] [place] [phone] 01/22/2025 6:45 EDT Treatment [facility] [place] [address] [place], [place] [phone] Carlota Jin MD 1 [facility], [facility] [address] [place] [phone] 01/24/2025 6:45 EDT Treatment [facility] [place] [address] [place], [place] [phone] Carlota Jin MD 1 [facility], [address] [phone] 01/26/2025 6:45 EDT Treatment [facility] [place] [address] [place] [address] Carlota Jin MD 1 [facility], [facility] [address] [place] [phone] 01/29/2025 6:45 EDT Treatment [facility] [place] [address] [place], [place] [phone] Carlota Jin MD 1 [facility], [facility] [address] [place] [phone] 01/31/2025 6:45 EDT Treatment [facility] [place] [address] [place], [place] [phone] Carlota Jin MD 1 [facility], [address] [phone] 02/02/2025 6:45 EDT Treatment [facility] [place] [address] [place], [place] [phone] Carlota Jin MD 1 [facility], [address] [phone] 02/05/2025 6:45 EDT Treatment [facility] [place] [address] [place], [place] [phone] Carlota Jin MD 1 [facility], [address] [phone] 02/07/2025 6:45 EDT Treatment [facility] [place] [address] [place], [place] [phone] Carlota Jin MD 1 [facility], [address] [phone] 02/09/2025 6:45 EDT Treatment [facility] [place] [address] [place], [place] [phone] Carlota Jin MD [address] [place] [address], [address] [phone] 02/12/2025 6:45 EDT Treatment [facility] [place] [address] [place], [place] [phone] Carlota Jin MD 1 [facility], [facility] [address] [place] [phone] 02/14/2025 6:45 EDT Treatment [facility] [place] [address] [place], [place] [phone] Carlota Jin MD 1 [facility], [facility] [address] [place] [phone] 02/16/2025 6:45 EDT Treatment [facility] [address] [place], [place] [id number] Carlota Jin MD 1 [facility], [address] [phone] 02/19/2025 6:45 EDT Treatment [facility] [place] [address] [place], [place] [phone] Carlota Jin MD 1 [facility], [address] [phone] 02/21/2025 6:45 EDT [facility] [address] [place], [place] [id number] Carlota Jin MD 1 [facility], [address] [phone] documented as of this encounter Procedures Procedure Name Priority Date/Time Associated Diagnosis Comments HEMODIALYSIS Routine 02/14/2024 6:24 EDT ESRD (end stage renal disease) ([facility]) documented in this encounter Visit Diagnoses Diagnosis ESRD (end stage renal disease) ([facility])- Primary End stage renal disease Anemia [...] oral, ONCE IN DIALYSIS, 1 dose, On Wed02/14/24 at 0645, Routine, DialysisIndications:ESRD (end stage renal disease) (HCC-CMS),Secondary hyperparathyroidism (HCC-CMS) Given 02/14/2024 6:45 EDT 2 Tablets epoetin ken (EPOGEN) 20,000 unit/2 mL injection 4,000 Units 4,000 Units, intravenous, ONCE IN DIALYSIS, 1 dose, On Wed02/14/24 at 0645, Routine, DialysisIndications:ESRD (end stage renal disease) ([facility]),Anemia of chronic renal failure, unspecified CKD stage Given 02/14/2024 6:45 EDT 4,000 Units heparin injection 9,000 Units 9,000 Units, intravenous, ONCE IN DIALYSIS, 1 dose, On Wed02/14/24 at 0645, Routine, Dialysis, Now x1 bolus 4500 units to be given at the beginning of dialysis 1500 units/hour to be given over the course of dialysis (9000 units total). Stop 1 hour prior to end of treatment. To be administered per Policy [id number].Indications:ESRD (end stage renal disease) ([facility]) Given 02/14/2024 6:45 EDT 9,000 Units LiquaCel liquid protein liquid 30 mL 30 mL, oral, ONCE IN DIALYSIS, 1 dose, On Wed02/14/24 at 0645, RoutineIndications:ESRD (end stage renal disease) ([facility]),Hypoalbuminemia Given 02/14/2024 6:45 EDT 30 mL documented in this encounter Orders Dialysis Count Last Ordered Date First Orde red Date HEMODIALYSIS 1 02/14/2024 documented in this encounter Care Teams Chief Hydroelectric Station Operator Relationship Specialty Start Date End Date Ken Greer MD [address] [place] [address] PCP - General 07/07/23 documented as of this encounter
--- OUTSIDE RECORDS SUMMARY | 2024-12-05 12:08 | XMS_ITS | Encounter Summary ---
Author Organization [facility] Address [address] [place] [address] Care Team Providers Care Travel Pt Name Role Phone Ken Greer MD Primary Care Provider [phone] Encounter Details Date Type Department Care Team (Late st Contact Info) Description 02/14/2024 Documentation Visit [address] [place] [address] Shelley Eden, RD [address] [place] [address] Social History Tobacco Use Types Packs/Day Years [...] Progress Notes * Shelley Eden, RD - 02/14/2024 1041 EDT Dialysis Dietitian's Monthly Assessment Met with patient on 02/04/24 spoke with as Xander continues to be very sleepy and difficult to talk to at HD Family/caregivers or others present: lives with his Information obtained from: patient Recent Hospitalizations: 11/07-10/31/23 COVID and diabetic foot infection Subjective: Xander often is very sleepy and difficult to talk to at HD in addition he is hard of hearing. Spoke with his -She said the wound is not very good- his has been doing dressing changes. She also said the other foot is not very good - going to [facility] wound doc this month . has been working hard to make him eat healthier . Discussed high protein needs with his and suggested using a protein powder at home . Appetite: Good Appetite scale (0-10): No number given Gastrointestinal: No issues reported Skin integrity: Burn wound on leg and foot infection Diabetes: Yes does not check on bld sugars Diabetes Management: Self Monitoring of Blood Glucose on insulin but does not check Diet Recall: B oatmeal L RB sw D steak and potato Fluid: Water, Coffee, Milk, Juice Alcohol: will need to f/u Prescribed Weight:86.5 Post-Dialytic Weight: 84.9 02/02/2024 11:00 02/04/2024 10:45 02/07/2024 10:52 02/09/2024 10:56 02/11/2024 10:50 - ( Kg ) 86.7 86.4 86.1 85.5 84.9 UFR: 02/02/2024 11:00 02/04/2024 10:45 02/07/2024 10:52 02/09/2024 10:56 02/11/2024 10:50 - mL/Kg/hr 8.93 ml:kg:hr 3.75 ml:kg:hr 9.39 ml:kg:hr 4.89 ml:kg:hr 1.45 ml:kg:hr URR: 68.056 (Calculated from:; BUN Pre-Dialysis: 72 mg/dL at 01/24/2024 13:00; BUN Post-Dialysis: 23 mg/dL at 01/24/2024 13:00) Kt/V: 1.36 (Calculated from:; BUN Pre-Dialysis: 72 mg/dL at 01/24/2024 13:00; BUN Post-Dialysis: 23 mg/dL at 01/24/2024 13:00; Pre-Treatment Weight (kg): 90 at 01/24/2024 6:24; Post-Treatment Weight (kg): 86.5 at 01/24/2024 10:55; Duration of Treatment (minutes): 242 minutes at 01/24/2024 10:42) PCR: 1.23 (Calculated from:; BUN Pre-Dialysis: 72 mg/dL at 01/24/2024 13:00; BUN Post-Dialysis: 23 mg/dL at 01/24/2024 13:00; Pre-Treatment Weight (kg): 90 at 01/24/2024 6:24; Post-Treatment Weight (kg): 86.5 at 01/24/2024 10:55; Duration of Treatment (minutes): 242 minutes at 01/24/2024 10:42; Age: 58 years) Pertinent Labs include: Lab Results Component Value Date LABALBU 2.7 (L) 01/24/2024 LABALBU 2.6 (L) 12/27/2023 Lab Results Component Value Date BUNPRE 72 (H) 01/24/2024 BUNPRE 72 (H) 01/24/2024 NA 136 01/24/2024 NA 131 (L) 12/27/2023 K 5.3 (H) 01/24/2024 K 6.3 (H) 12/27/2023 CL 98 01/24/2024 CL 93 (L) 12/27/2023 CO2 24 01/24/2024 CO2 27 12/27/2023 MG 2.3 01/24/2024 MG 2.1 12/27/2023 CALCIUM 8.8 01/24/2024 CALCIUM 8.4 (L) 12/27/2023 CALCCA 9.8 01/24/2024 CALCCA 9.5 12/27/2023 PHOS 6.9 (H) 01/24/2024 PHOS 5.1 (H) 12/27/2023 ALKPHOS 107 01/24/2024 ALKPHOS 103 12/27/2023 PTH 329 (H) 01/24/2024 PTH 707 (H) 10/27/2023 PLT 430 (H) 02/09/2024 PLT 387 (H) 02/02/2024 MCV 89 02/09/2024 MCV 91 02/02/2024 [id number] 607 10/27/2023 [id number] 688 11/16/2022 VITD 21 (L) 10/27/2023 VITD [...] Relevant to Nutrition: atorvastatin - 40 mg This patient does not have an active medication from one of the medication groupers. sevelamer hydrochloride - 800 mg insulin aspart U-100 - 100 unit/mL (3 mL) Levemir FlexPen insulin pen - 100 unit/mL (3 mL) Assessment Nutrition status / Adequacy of intake: Xander is eating fairly well per his eating 1- 2 protein servings daily - albumin remains low r/t infection/ wounds - will cont liquacel -have encouraged use of protein powder at home. We discussed adding more HBV protein sources in his diet. His wt has ranged from 86-88 kg but has declined to 84.9 this month - his current BMI is at 28. He is well nourished in appearance but suspect with limited mobility he could be losing muscle. If albumin remains low should consider IDPN . Weight/Volume status: fluid gains 1.1-3.8 UFR 3-12 Electrolytes: K WNL Na WNL Mg WNL Mineral Bone Disease: Ca WNL [...] at HD restart protein powder at home Cont vitamin and D3 Shelley Eden RD, CD documented in this encounter Plan of Treatment Upcoming Encounters Date Type Department Care Team (Late st Contact Info) Description 12/06/2024 6:45 EST Treatment [facility] [address] [place] [id number] Carlota Jin MD 1 [facility] [address] [place] [phone] 12/08/2024 6:45 EST Treatment [facility] [address] [place] [id number] Carlota Jin MD 1 [facility] [address] [place] [phone] 12/11/2024 6:45 EST Treatment [facility] [place] [address] [place], [place] [id number] Carlota Jin MD 1 [facility], [facility] [address] [place] [phone] 12/13/2024 6:45 EST Treatment [facility] [place] [address] [place], [place] [id number] Carlota Jin MD 1 [facility], [facility] [address] [place] [phone] 12/15/2024 6:45 EST Treatment [facility] [address] [place], [place] [id number] Carlota Jin MD 1 [facility], [facility] [address] [place] [phone] 12/18/2024 6:45 EST Treatment [facility] [address] [place], [place] [id number] Carlota Jin MD 1 [facility], [facility] [address] [place] [phone] 12/20/2024 6:45 EST Treatment [facility] [place] [address] [place], [place] [id number] Carlota Jin MD 1 [facility], [facility] [address] [place] [phone] 12/22/2024 6:45 EST Treatment [facility] [address] [place], [place] [id number] Carlota Jin MD 1 [facility], [facility] [address] [place] [phone] 12/25/2024 6:45 EST Treatment [facility] [place] [address] [place], [place] [id number] Carlota Jin MD 1 [facility], [facility] [address] [place] [phone] 12/27/2024 6:45 EST Treatment [facility] [place] [address] [place] [id number] Carlota Jin MD 1 [facility], [facility] [address] [place] [phone] 12/29/2024 6:45 EST Treatment [facility] [place] [address] [place], [place] [id number] Carlota Jin MD 1 [facility], [address] [phone] 01/01/2025 6:45 EDT Treatment [facility] [place] [address] [place] [id number] Carlota Jin MD 1 [facility], [facility] [address] [place] [phone] 01/03/2025 6:45 EDT Treatment [facility] [place] [address] [place], [place] [id number] Carlota Jin MD 1 [facility], [facility] [address] [place] [phone] 01/05/2025 6:45 EDT Treatment [facility] [place] [address] [place], [place] [id number] Carlota Jin MD 1 [facility], [facility] [address] [place] [phone] 01/08/2025 6:45 EDT Treatment [facility] [place] [address] [place], [place] [id number] Carlota Jin MD [address] [place] [address], [facility] [address] [place] [phone] 01/10/2025 6:45 EDT Treatment [facility] [place] [address] [place] [id number] Carlota Jin MD [address] [place] [address], [facility] [address] [place] [phone] 01/12/2025 6:45 EDT Treatment [facility] [place] [address] [place] [id number] Carlota Jin MD [address] [place] [address], [facility] [address] [place] [phone] 01/15/2025 6:45 EDT Treatment [facility] [place] [address] [place], [place] [id number] Carlota Jin MD [address] [place] [address], [facility] [address] [place] [phone] 01/17/2025 6:45 EDT Treatment [facility] [place] [address] [place], [place] [id number] Carlota Jin MD 1 [facility], [address] [phone] 01/19/2025 6:45 EDT Treatment [facility] [place] [address] [place] [id number] Carlota Jin MD 1 [facility], [address] [phone] 01/22/2025 6:45 EDT Treatment [facility] [place] [address] [place], [place] [id number] Carlota Jin MD 1 [facility], [address] [phone] 01/24/2025 6:45 EDT Treatment [facility] [place] [address] [place], [place] [id number] Carlota Jin MD 1 [facility], [address] [phone] 01/26/2025 6:45 EDT Treatment [facility] [place] [address] [place], [place] [id number] Carlota Jin MD [address] [phone] 01/29/2025 6:45 EDT Treatment [facility] [place] [address] [place], [place] [id number] Carlota Jin MD 1 [facility], [facility] 2 [place] [phone] 01/31/2025 6:45 EDT Treatment [facility] [place] [address] [place], [place] [id number] Carlota Jin MD 1 [facility], [facility] 2 [place] [phone] 02/02/2025 6:45 EDT Treatment [facility] [place] [address] [place], [place] [id number] Carlota Jin MD 1 [facility], [facility] 2 [place] [phone] 02/05/2025 6:45 EDT Treatment [facility] [place] [address] [place], [place] [id number] Carlota Jin MD 1 [facility], [facility] 2 [place] [phone] 02/07/2025 6:45 EDT Treatment [facility] [place] [address] [place], [place] [id number] Carlota Jin MD 1 [facility], [facility] 2 [place] [phone] 02/09/2025 6:45 EDT Treatment [facility] [place] [address] [place], [place] [id number] Carlota Jin MD 1 [facility], [facility] 2 [place] [phone] 02/12/2025 6:45 EDT Treatment [facility] [place] [address] [place], [place] [id number] Carlota Jin MD [address] [phone] 02/14/2025 6:45 EDT Treatment [facility] [place] [address] [place], [place] [id number] Carlota Jin MD [address] [place] [address] [phone] 02/16/2025 6:45 EDT Treatment [facility] [place] [address] [place], [place] [id number] Carlota Jin MD [address] [place] [phone] 02/19/2025 6:45 EDT Treatment [facility] [place] [address] [place], [place] [id number] Carlota Jin MD [address] [phone] 02/21/2025 6:45 EDT Treatment [facility] [place] [address] [place], [place] [id number] Carlota Jin MD [address] [place] [phone] documented as of this encounter Visit Diagnoses Not on filedocumented in this encounter Care Teams Travel Pt Relationship Specialty Start Date End Date [place] [id number] PCP - General 07/07/23 documented as of this encounter
--- OUTSIDE RECORDS SUMMARY | 2024-12-05 12:08 | XMS_ITS | Encounter Summary ---
Author Organization [facility] Address [address] [place] [address] Care Team Providers Care Research Physicist Name Role Phone Ken Greer MD Primary Care Provider [phone] Encounter Details Date Type Department Care Team (Late st Contact Info) Description 02/02/2024 Documentation Visit [address] [place], [place] [address] Marcela Cox, VIDYA Social History Tobacco Use [...] Progress Notes * Marcela Cox RN - 02/02/2024 1519 EDT 02/02/24 15:19 [facility] DIALYSIS MEDICATION RECONCILIATION Medication review of home medications (prescriptions, qzuc-aqr-lsdsyyg, herbals, vitamin/mineral/dietary (nutritional) supplements, medical marijuana, and [...] 100 unit/mL (3 mL) injectable pen insulin pen needles 32G x 5/32 LEVEMIR FLEXPEN 100 unit/mL (3 mL) injectable pen oxyCODONE (ROXICODONE) 5 mg immediate release tablet oxyCODONE-acetaminophen (PERCOCET) 5-325 mg per tablet polyethylene glycol 3350 (MIRALAX) 17 gram packet pregabalin (LYRICA) 100 mg capsule SANTYL ointment sevelamer hydrochloride (RENAGEL) 800 mg tablet sildenafil citrate (VIAGRA) 100 mg tablet No current facility-administered medications for this visit. Facility-Administered Medications Ordered in Other Visits Medication Route Frequency acetaminophen (TYLENOL) tablet 650 mg oral Q4H PRN Marcela Cox RN documented in this encounter Plan of Treatment Upcoming Encounters Date Type Department Care Team (Late st Contact Info) Description 12/06/2024 6:45 EST Treatment [facility] [address] [place], [place] [id number] Carlota Jin MD [address] [phone] 12/08/2024 6:45 EST Treatment [facility] [address] [place], [place] [id number] Carlota Jin MD [address] [place] [phone] 12/11/2024 6:45 EST Treatment [facility] [address] [place], [place] [address]215 Carlota Jin MD [address] [place] [phone] 12/13/2024 6:45 EST Treatment [facility] [address] [place], [place] [id number] Carlota Jin MD [address] [phone] 12/15/2024 6:45 EST [facility] [address] [place], [place] [id number] Carlota Jin MD 1 [facility] 2 [place] [phone] 12/18/2024 6:45 EST Treatment [facility] [place] [address] [place], [place] [id number] Carlota Jin MD 1 [facility], [facility] 2 [place] [phone] 12/20/2024 6:45 EST Treatment [facility] [place] [address] [place] [address] Carlota Jin MD 1 [facility], [facility] 2 [place] [phone] 12/22/2024 6:45 EST Treatment [facility] [place] [address] [place] [address] Carlota Jin MD 1 [facility], [facility] 2 [place] [phone] 12/25/2024 6:45 EST Treatment [facility] [place] [address] [place] [address] Carlota Jin MD 1 [facility], [facility] 2 [place] [phone] 12/27/2024 6:45 EST Treatment [facility] [place] [address] [place], [place] [id number] Carlota Jin MD 1 [facility], [facility] 2 [place] [phone] 12/29/2024 6:45 EST Treatment [facility] [place] [address] [place], [place] [id number] Carlota Jin MD 1 [facility], [facility] 2 [place] [phone] 01/01/2025 6:45 EDT Treatment [facility] [place] [address] [place], [place] [id number] Carlota Jin MD [address] [place] [address], [facility] 2 [place] [phone] 01/03/2025 6:45 EDT Treatment [facility] [place] [address] [place], [place] [address] [phone] Carlota Jin MD 1 [facility], [facility] 2 [place] [phone] 01/05/2025 6:45 EDT Treatment [facility] [place] [address] [place] [address] Carlota Jin MD [address] [place] [address], [facility] 2 [place] [phone] 01/08/2025 6:45 EDT Treatment [facility] [address] [place], [place] [id number] Carlota Jin MD [address] [place] [address], [facility] 2 [place] [phone] 01/10/2025 6:45 EDT Treatment [facility] [place] [address] [place], [place] [id number] Carlota Jin MD 1 [facility], [address] [phone] 01/12/2025 6:45 EDT Treatment [facility] [place] [address] [place] [address] Carlota Jin MD 1 [facility], [address] [phone] 01/15/2025 6:45 EDT Treatment [facility] [place] [address] [place], [place] [id number] Carlota Jin MD 1 [facility], [address] [phone] 01/17/2025 6:45 EDT Treatment [facility] [place] [address] [place], [place] [id number] Carlota Jin MD [address] [phone] 01/19/2025 6:45 EDT Treatment [facility] [place] [address] [place], [place] [id number] Carlota Jin MD [address] [phone] 01/22/2025 6:45 EDT Treatment [facility] [place] [address] [place], [place] [id number] Carlota Jin MD [address] [facility], [facility] 2 [place] [phone] 01/24/2025 6:45 EDT Treatment [facility] [place] [address] [place], [place] [id number] Carlota Jin MD 1 [facility], [facility] 2 [place] [phone] 01/26/2025 6:45 EDT Treatment [facility] [place] [address] [place], [place] [id number] Carlota Jin MD 1 [facility], [facility] 2 [place] [phone] 01/29/2025 6:45 EDT Treatment [facility] [place] [address] [place], [place] [id number] Carlota Jin MD [address] [facility], [facility] 2 [place] [phone] 01/31/2025 6:45 EDT Treatment [facility] [place] [address] [place], [place] [id number] Carlota Jin MD 1 [facility], [facility] 2 [place] [phone] 02/02/2025 6:45 EDT Treatment [facility] [place] [address] [place], [place] [id number] Carlota Jin MD 1 [facility], [facility] 2 [place] [phone] 02/05/2025 6:45 EDT Treatment [facility] [place] [address] [place], [place] [id number] Carlota Jin MD [address] [facility], [facility] 2 [place] [phone] 02/07/2025 6:45 EDT Treatment [facility] [place] [address] [place], [place] [id number] Carlota Jin MD [address] [facility], [facility] 2 [place] [phone] 02/09/2025 6:45 EDT Treatment [facility] [place] [address] [place], [place] [id number] Carlota Jin MD 1 [facility], [address] [phone] 02/12/2025 6:45 EDT Treatment [facility] [place] [address] [place], [place] [id number] Carlota Jin MD 1 [facility], [address] [phone] 02/14/2025 6:45 EDT Treatment [facility] [place] [address] [place], [place] [id number] Carlota Jin MD 1 [facility], [facility] 2 [place] [phone] 02/16/2025 6:45 EDT Treatment [facility] [place] [address] [place], [place] [id number] Carlota Jin MD 1 [facility], [facility] 2 [place] [phone] 02/19/2025 6:45 EDT Treatment [facility] [place] [address] [place], [place] [id number] Carlota Jin MD 1 [facility], [facility] 2 [place] [phone] 02/21/2025 6:45 EDT [facility] [address] [place], [place] [id number] Carlota Jin MD 1 [facility], [facility] 2 [place] [phone] documented as of this encounter Visit Diagnoses Not on filedocumented in this encounter Historical Medications * This list may reflect changes made after this encounter. cholecalciferol, Vitamin D3, 25 mcg (1,000 unit) tablet Take 2 Tablets by mouth. 01/14/2024 oxyCODONE (ROXICODONE) 5 mg immediate release tablet Take 1 Tablet by mouth every 6 hours as needed for Pain. 01/14/2024 06/19/2024 added in this encounter Care Teams Research Physicist Relationship Specialty Start Date End Date Ken Greer MD [place] [place] [address] PCP - General 07/07/23 documented as of this encounter
--- OUTSIDE RECORDS SUMMARY | 2024-12-05 12:08 | XMS_ITS | Encounter Summary ---
Author Organization [facility] Address [address] [place] [address] Care Team Providers Care Plant Operator/Shift Supervisor Name Role Phone Ken Greer MD Primary Care Provider [phone] Encounter Details Date Type Department Care Team (Latest Contact Info) Description 02/04/2024 6:45 EDT Treatment [facility] [address] [place], [place] [phone] Carlota Jin MD 1 [facility], Level [address] [place] [phone] ESRD (end stage renal disease) ([facility]) (Primary Dx); Anemia of chronic renal failure, unspecified CKD stage; Hypoalbuminemia; Secondary hyperparathyroidism ([facility]) Social History Tobacco Use Types Packs/Day Years [...] - Temperature - - Respiratory Rate 16 02/04/2024 0619 EDT Oxygen Saturation - - Inhaled Oxygen Concentration - - Weight 87.7 kg (193 lb 5.5 oz) 02/04/2024 0620 E DT Height - - Body Mass [...] Flowsheet Note - Marcela Cox RN - 02/04/2024 1340 EDT 02/04/24 1045 Post-Hemodialysis Assessment Total Blood Processed (L) 90.23 Liters On Line Clearance: spKt/V 1.64 spKt/V Dialyzer Clearance Lightly streaked Treatment UFR (ml:kg:hr) 3.75 ml:kg:hr Critline refill Not done Fluid Removed (L) 2 L Post-Dialysis Scale Weight 107.3 kg (236 lb 8.9 oz) Wheelchair Weight 20.9 kg (46 lb 1.2 oz) Prosthesis Weight 0 kg (0 lb) Post-Treatment Weight (kg) 86.4 Treatment Weight Change (kg) 1.3 kg Day Target Weight (kg) 86.2 Post Sitting/Lying BP 163/85 Post Sitting/Lying pulse 74 Temp 36.5 ??C (97.7 ??F) Temp src [...] 6:45 EST Treatment [facility] [place] [address] [place], [place] [phone] Carlota Jin MD [address] [phone] 12/08/2024 6:45 EST Treatment [facility] [address] [place], [place] [phone] Carlota Jin MD [address] [phone] 12/11/2024 6:45 EST Treatment [facility] [place] [address] [place], [place] [phone] Carlota Jin MD 1 [facility] [address] [place] [phone] 12/13/2024 6:45 EST Treatment [facility] [address] [place], [place] [phone] Carlota Jin MD 1 [facility], [facility] [address] [place] [phone] 12/15/2024 6:45 EST Treatment [facility] [address] [place], [place] [phone] Carlota Jin MD 1 [facility], [facility] [address] [place] [phone] 12/18/2024 6:45 EST Treatment [facility] [place] [address] [place], [place] [phone] Carlota Jin MD 1 [facility], [facility] [address] [place] [phone] 12/20/2024 6:45 EST Treatment [facility] [place] [address] [place], [place] [phone] Carlota Jin MD 1 [facility], [facility] [address] [place] [phone] 12/22/2024 6:45 EST Treatment [facility] [address] [place], [place] [phone] Carlota Jin MD 1 [facility], [facility] [address] [place] [phone] 12/25/2024 6:45 EST Treatment [facility] [address] [place], [place] [phone] Carlota Jin MD 1 [facility], [facility] 2 [place] [phone] 12/27/2024 6:45 EST Treatment [facility] [place] [address] [place], [place] [phone] Carlota Jin MD 1 [facility], [facility] [address] [place] [phone] 12/29/2024 6:45 EST Treatment [facility] [place] [address] [place], [place] [phone] Carlota Jin MD 1 [facility], [address] [phone] 01/01/2025 6:45 EDT Treatment [facility] [place] [address] [place], [place] [phone] Carlota Jin MD 1 [facility], [address] [phone] 01/03/2025 6:45 EDT Treatment [facility] [place] [address] [place], [place] [phone] Carlota Jin MD 1 [facility], [address] [phone] 01/05/2025 6:45 EDT Treatment [facility] [place] [address] [place], [place] [phone] Carlota Jin MD [address] [place] [address], [facility] [address] [place] [phone] 01/08/2025 6:45 EDT Treatment [facility] [address] [place], [place] [phone] Carlota Jin MD 1 [facility], Level [address] [place] [phone] 01/10/2025 6:45 EDT Treatment [facility] [place] [address] [place], [place] [phone] Carlota Jin MD 1 [facility], [facility] [address] [place] [phone] 01/12/2025 6:45 EDT Treatment [facility] [place] [address] [place], [place] [phone] Carlota Jin MD 1 [facility], [facility] 2 [place] [phone] 01/15/2025 6:45 EDT Treatment [facility] [place] [address] [place], [place] [phone] Carlota Jin MD 1 [facility], [facility] 2 [place] [phone] 01/17/2025 6:45 EDT [facility] [address] [place], [place] [phone] Carlota Jin MD 1 [facility], [facility] 2 [place] [phone] 01/19/2025 6:45 EDT Treatment [facility] [address] [place], [place] [phone] Carlota Jin MD 1 [facility], [facility] 2 [place] [phone] 01/22/2025 6:45 EDT Treatment [facility] [place] [address] [place], [place] [phone] Carlota Jin MD 1 [facility], [facility] 2 [place] [phone] 01/24/2025 6:45 EDT Treatment [facility] [address] [place], [place] [phone] Carlota Jin MD 1 [facility], [facility] 2 [place] [phone] 01/26/2025 6:45 EDT Treatment [facility] [place] [address] [place], [place] [phone] Carlota Jin MD 1 [facility], [facility] 2 [place] [phone] 01/29/2025 6:45 EDT Treatment [facility] [address] [place], [place] [phone] Carlota Jin MD 1 [facility], [facility] 2 [place] [phone] 01/31/2025 6:45 EDT Treatment [facility] [place] [address] [place], [place] [phone] Carlota Jin MD 1 [facility], [facility] 2 [place] [phone] 02/02/2025 6:45 EDT Treatment [facility] [place] [address] [place], [place] [phone] Carlota Jin MD 1 [facility], [facility] 2 [place] [phone] 02/05/2025 6:45 EDT Treatment [facility] [address] [place], [place] [phone] Carlota Jin MD 1 [facility], [facility] 2 [place] [phone] 02/07/2025 6:45 EDT Treatment [facility] [place] [address] [place] [address] Carlota Jin MD 1 [facility], [address] [phone] 02/09/2025 6:45 EDT Treatment [facility] [place] [address] [place], [place] [phone] Carlota Jin MD 1 [facility], [address] [phone] 02/12/2025 6:45 EDT Treatment [facility] [address] [place] [address] Carlota Jin MD 1 [facility], [facility] 2 [place] [phone] 02/14/2025 6:45 EDT Treatment [facility] [address] [place], [place] [phone] Carlota Jin MD 1 [facility], [facility] 2 [place] [phone] 02/16/2025 6:45 EDT Treatment [facility] [address] [place], [place] [phone] Carlota Jin MD [address] [place] [phone] 02/19/2025 6:45 EDT Treatment [facility] [address] [place], [place] [phone] Carlota Jin MD [address] [place] [phone] 02/21/2025 6:45 EDT Treatment [facility] [address] [place], [place] [phone] Carlota Jin MD [address] [place] [phone] documented as of this encounter Procedures Procedure Name Priority Date/Time Associated Diagnosis Comments HEMODIALYSIS Routine 02/04/2024 6:19 EDT ESRD (end stage renal disease) ([facility]) documented in this encounter Visit Diagnoses Diagnosis ESRD (end stage renal disease) ([facility])- Primary End stage renal disease Anemia of chronic renal failure, unspecified CKD stage Hypoalbuminemia Other disorders of plasma protein metabolism Secondary hyperparathyroidism ([facility]) Secondary hyperparathyroidism (of renal origin) documented in this encounter Administered Medications Inactive Administered Medications - up to 3 most recent administrations Medication Order MAR Action Action Date Dose Rate Site acetaminophen (TYLENOL) tablet 650 mg 650 mg, oral, EVERY 4 HOURS PRN, Starting on Wed02/04/24 at 0622, Until Wed02/04/24 at 1540, Pain, Routine, DialysisIndications:ESRD (end stage renal disease) ([facility]) Given 02/04/2024 6:55 EDT 650 mg calcium carbonate (TUMS) tablet 500 mg (200 mg elemental calcium) 2 Tablet 2 Tablet, oral, ONCE IN DIALYSIS, 1 dose, On Wed02/04/24 at 0645, Routine, DialysisIndications:ESRD (end stage renal disease) ([facility]),Secondary hyperparathyroidism ([facility]) Given 02/04/2024 6:55 EDT 2 Tablets epoetin ken (EPOGEN) 20,000 unit/2 mL injection 4,000 Units 4,000 Units, intravenous, ONCE IN DIALYSIS, 1 dose, On Wed02/04/24 at 0645, Routine, DialysisIndications:ESRD (end stage renal disease) ([facility]),Anemia of chronic renal failure, unspecified CKD stage Given 02/04/2024 6:54 EDT 4,000 Units heparin injection 9,000 Units 9,000 Units, intravenous, ONCE IN DIALYSIS, 1 dose, On Wed02/04/24 at 0645, Routine, Dialysis, Now x1 bolus 4500 units to be given at the beginning of dialysis 1500 units/hour to be given over the course of dialysis (9000 units total). Stop 1 hour prior to end of treatment. To be administered per Policy [id number].Indications:ESRD (end stage renal disease) ([facility]) Given 02/04/2024 6:54 EDT 9,000 Units LiquaCel liquid protein liquid 30 mL 30 mL, oral, ONCE IN DIALYSIS, 1 dose, On Wed02/04/24 at 0645, RoutineIndications:ESRD (end stage renal disease) ([facility]),Hypoalbuminemia Given 02/04/2024 6:54 EDT 30 mL documented in this encounter Orders Dialysis Count Last Ordered Date First Orde red Date HEMODIALYSIS 1 02/04/2024 documented in this encounter Care Teams Plant Operator/Shift Supervisor Relationship Specialty Start Date End Date Ken Greer MD [facility] [address] [place] [address] PCP - General 07/07/23 documented as of this encounter
--- OUTSIDE RECORDS SUMMARY | 2024-12-05 12:08 | XMS_ITS | Encounter Summary ---
Author Organization [facility] Address [address] [place] [address] Care Team Providers Care Hall Director Name Role Phone Ken Greer MD Primary Care Provider Encounter Details Date Type Department Care Team (Latest Contact Info) Description 02/09/2024 6:45 EDT Treatment [facility] [address] [place], [place] [id number] Carlota Jin MD 1 [facility], Level [address] [place] [phone] ESRD (end stage renal disease) ([facility]) (Primary Dx); Anemia of chronic renal failure, unspecified CKD stage; Hypoalbuminemia; Secondary hyperparathyroidism ([facility]) Social [...] - Temperature - - Respiratory Rate 16 02/09/2024 0620 EDT Oxygen Saturation - - Inhaled Oxygen Concentration - - Weight 87.2 kg (192 lb 3.9 oz) 02/09/2024 0622 E DT Height - - Body Mass Index 27.58 12/20/2023 2202 EST documented in this encounter [...] Flowsheet Note - Marcela Cox RN - 02/09/2024 1346 EDT 02/09/24 1056 Post-Hemodialysis Assessment Total Blood Processed (L) 89.74 Liters On Line Clearance: spKt/V 1.61 spKt/V Dialyzer Clearance Lightly streaked Treatment UFR (ml:kg:hr) 4.89 ml:kg:hr Critline refill Not done Fluid Removed (L) 1.49 L Post-Dialysis Scale Weight 106.4 kg (234 lb 9.1 oz) Wheelchair Weight 20.9 kg (46 lb 1.2 oz) Prosthesis Weight 0 kg (0 lb) Post-Treatment Weight (kg) 85.5 Treatment Weight Change (kg) 1.7 kg Day Target Weight (kg) 86.2 Post Sitting/Lying BP (!) 190/92 Post Sitting/Lying pulse 89 Temp 36.7 ??C (98.1 ??F) Temp src Temporal Post access assessment AVF/AFG Hemostasis achieved Yes Note 10 minute hold both sites Orientation Alert and Oriented x3 Yes Time Yes Place Yes Person Yes Cooperative Yes Disoriented No Discharge Ambulation Methods Departs via w/c;With patient transport Wrap up items Patient Response to Treatment Tolerated tx well. Removed 1.5L UF goal without difficulty. Comments Pt very drowsy but arousable post tx, transported pt to home. educated to seek ED tx if drowsiness does not improve, she refused ED eval at time of d/c. This RN assisted with pt transfer from w/c to vehicle. documented in this encounter Plan of Treatment Upcoming Encounters Date Type Department Care Team (Late st Contact Info) Description 12/06/2024 6:45 EST Treatment [facility] [address] [place], [place] [id number] Carlota Jin MD [address] [place] [address], [facility] [address] [place] [phone] 12/08/2024 6:45 EST Treatment [facility] [address] [place], [place] [id number] Carlota Jin MD [address] [place] [address], [facility] [address] [place] [phone] 12/11/2024 6:45 EST Treatment [facility] [address] [place] [address] Carlota Jin MD [address] [place] [address], [facility] [address] [place] [phone] 12/13/2024 6:45 EST Treatment [facility] [place] [address] [place], [place] [id number] Carlota Jin MD 1 [facility], [facility] [address] [place] [phone] 12/15/2024 6:45 EST Treatment [facility] [place] [address] [place], [place] [phone] Carlota Jin MD 1 [facility], [facility] [address] [place] [phone] 12/18/2024 6:45 EST Treatment [facility] [place] [address] [place], [place] [id number] Carlota Jin MD 1 [facility], [facility] [address] [place] [phone] 12/20/2024 6:45 EST Treatment [facility] [place] [address] [place], [place] [id number] Carlota Jin MD 1 [facility], [facility] [address] [place] [phone] 12/22/2024 6:45 EST Treatment [facility] [place] [address] [place], [place] [id number] Carlota Jin MD 1 [facility], [facility] [address] [place] [phone] 12/25/2024 6:45 EST Treatment [facility] [place] [address] [place], [place] [phone] Carlota Jin MD 1 [facility], [facility] [address] [place] [phone] 12/27/2024 6:45 EST Treatment [facility] [place] [address] [place], [place] [id number] Carlota Jin MD 1 [facility], [facility] [address] [place] [phone] 12/29/2024 6:45 EST Treatment [facility] [place] [address] [place] [address] Carlota Jin MD 1 [facility], [facility] [address] [place] [phone] 01/01/2025 6:45 EDT Treatment [facility] [place] [address] [place] [address] Carlota Jin MD 1 [facility], [facility] [address] [place] [phone] 01/03/2025 6:45 EDT Treatment [facility] [place] [address] [place] [address] Carlota Jin MD 1 [facility], [facility] [address] [place] [phone] 01/05/2025 6:45 EDT Treatment [facility] [place] [address] [place], [place] [id number] Carlota Jin MD 1 [facility], [facility] [address] [place] [phone] 01/08/2025 6:45 EDT Treatment [facility] [place] [address] [place], [place] [phone] Carlota Jin MD 1 [facility], [facility] [address] [place] [phone] 01/10/2025 6:45 EDT Treatment [facility] [place] [address] [place], [place] [phone] Carlota Jin MD 1 [facility], [facility] [address] [place] [phone] 01/12/2025 6:45 EDT Treatment [facility] [place] [address] [place] [address] Carlota Jin MD [address] [place] [address], [address] [phone] 01/15/2025 6:45 EDT Treatment [facility] [place] [address] [place], [place] [phone] Carlota Jin MD 1 [facility], [facility] [address] [place] [phone] 01/17/2025 6:45 EDT Treatment [facility] [place] [address] [place], [place] [phone] Carlota Jin MD 1 [facility], [facility] [address] [place] [phone] 01/19/2025 6:45 EDT Treatment [facility] [place] [address] [place] [address] Carlota Jin MD 1 [facility], [facility] [address] [place] [phone] 01/22/2025 6:45 EDT Treatment [facility] [place] [address] [place] [address] [address] MD 1 [facility], [facility] [address] [place] [phone] 01/24/2025 6:45 EDT Treatment [facility] [place] [address] [place] [address] Carlota Jin MD 1 [facility], [address] [phone] 01/26/2025 6:45 EDT Treatment [facility] [place] [address] [place] [address] Carlota Jin MD 1 [facility], [facility] [address] [place] [phone] 01/29/2025 6:45 EDT Treatment [facility] [place] [address] [place] [address] Carlota Jin MD 1 [facility], [facility] [address] [place] [phone] 01/31/2025 6:45 EDT Treatment [facility] [place] [address] [place], [place] [phone] Carlota Jin MD 1 [facility], [facility] [address] [place] [phone] 02/02/2025 6:45 EDT Treatment [facility] [place] [address] [place], [place] [address] Carlota Jin MD 1 [facility], [facility] [address] [place] [phone] 02/05/2025 6:45 EDT Treatment [facility] [place] [address] [place], [place] [phone] Carlota Jin MD [address] [place] [address], [facility] [address] [place] [phone] 02/07/2025 6:45 EDT Treatment [facility] [place] [address] [place], [place] [id number] Carlota Jin MD 1 [facility], [facility] [address] [place] [phone] 02/09/2025 6:45 EDT Treatment [facility] [place] [address] [place] [address] Carlota Jin MD [address] [place] [address], [facility] [address] [place] [phone] 02/12/2025 6:45 EDT Treatment [facility] [place] [address] [place], [place] [phone] Carlota Jin MD 1 [facility], [facility] [address] [place] [phone] 02/14/2025 6:45 EDT Treatment [facility] [place] [address] [place], [place] [phone] Carlota Jin MD 1 [facility], [facility] [address] [place] [phone] 02/16/2025 6:45 EDT Treatment [facility] [address] [place], [place] [phone] Carlota Jin MD 1 [facility], [facility] [address] [place] [phone] 02/19/2025 6:45 EDT Treatment [facility] [place] [address] [place], [place] [phone] Carlota Jin MD 1 [facility], [address] [phone] 02/21/2025 6:45 EDT Treatment [facility] [address] [place], [place] [phone] Carlota Jin MD 1 [facility], [facility] [address] [place] [phone] documented as of this encounter Procedures Procedure Name Priority Date/Time Associated Diagnosis Comments COMPLETE BLOOD COUNT Routine 02/09/2024 6:30 EDT ESRD (end stage renal disease) ([facility]) HEMODIALYSIS Routine 02/09/2024 6:20 EDT ESRD (end stage renal disease) ([facility]) documented in this encounter Results * (ABNORMAL) COMPLETE BLOOD COUNT (02/09/2024 6:30 EDT) WBC 9.64 4.00 - 10.40 K/cmm 02/09/2024 21:40 EDT [facility] RBC 2.66(L) 4.36 - 5.78 M/cmm 02/09/2024 21:40 [facility] Hemoglobin 7.9(L) 13.8 - 17.3 g/dL 02/09/2024 21:40 [facility] HCT 23.6(L) 39.5 - 50.2 % 02/09/2024 21:40 [facility] MCV 89 81 - 95 fL 02/09/2024 21:40 [facility] MCH 29.7 27.6 - 33.0 pg 02/09/2024 21:40 [facility] MCHC 33.5 32.8 - 36.4 g/dL 02/09/2024 21:40 [facility] RDW-CV 13.3 <14.2 % 02/09/2024 21:40 [facility] RDW-SD 43.2 <46.0 fl 02/09/2024 21:40 [facility] PLT 430(H) 141 - 377 K/cmm 02/09/2024 21:40 [facility] MPV 11.2 9.5 - 12.7 fL 02/09/2024 21:40 [facility] Blood VENOUS BLOOD / Unknown Venipuncture / Unknown 02/09/2024 6:30 EDT 02/09/2024 6:30 EDT Skye Gomez NP HEMATOLOGY & PF4 ORDERABLES Final Result [facility] [address] [place] [address] documented in this encounter Visit Diagnoses Diagnosis ESRD (end stage renal disease) ([facility])- Primary End stage renal disease Anemia of chronic renal failure, unspecified CKD stage Hypoalbuminemia Other disorders of plasma protein metabolism Secondary hyperparathyroidism ([facility]) Secondary hyperparathyroidism (of renal origin) documented in this encounter Administered Medications Inactive Administered Medications - up to 3 most recent administrations Medication Order MAR Action Action Date Dose Rate Site calcium carbonate (TUMS) tablet 500 mg (200 mg elemental calcium) 2 Tablet 2 Tablet, oral, ONCE IN DIALYSIS, 1 dose, On Wed02/09/24 at 0645, Routine, DialysisIndications:ESRD (end stage renal disease) ([facility]),Secondary hyperparathyroidism ([facility]) Given 02/09/2024 6:57 EDT 2 Tablets epoetin ken (EPOGEN) 20,000 unit/2 mL injection 4,000 Units 4,000 Units, intravenous, ONCE IN DIALYSIS, 1 dose, On Wed02/09/24 at 0645, Routine, DialysisIndications:ESRD (end stage renal disease) ([facility]),Anemia of chronic renal failure, unspecified CKD stage Given 02/09/2024 6:57 EDT 4,000 Units heparin injection 9,000 Units 9,000 Units, intravenous, ONCE IN DIALYSIS, 1 dose, On Wed02/09/24 at 0645, Routine, Dialysis, Now x1 bolus 4500 units to be given at the beginning of dialysis 1500 units/hour to be given over the course of dialysis (9000 units total). Stop 1 hour prior to end of treatment. To be administered per Policy [id number].Indications:ESRD (end stage renal disease) ([facility]) Given 02/09/2024 6:57 EDT 9,000 Units LiquaCel liquid protein liquid 30 mL 30 mL, oral, ONCE IN DIALYSIS, 1 dose, On Wed02/09/24 at 0645, RoutineIndications:ESRD (end stage renal disease) ([facility]),Hypoalbuminemia Given 02/09/2024 6:57 EDT 30 mL documented in this encounter Orders Dialysis Count Last Ordered Date First Orde red Date HEMODIALYSIS 1 02/09/2024 documented in this encounter Care Teams Hall Director Relationship Specialty Start Date End Date Ken Greer MD [facility] [place] [address] PCP - General 07/07/23 documented as of this encounter
--- OUTSIDE RECORDS SUMMARY | 2024-12-05 12:08 | XMS_ITS | Encounter Summary ---
Author Organization [facility] Address [address] [place] [address] Care Team Providers Care Field Software Engineer Name Role Phone Ken Greer MD Primary Care Provider [phone] Reason for Visit * Reason Comments Patient Education * Consult (Routine) - Receiving Office to Obtain Authorization Specialty Diagnoses / Procedures Referred By Nader gardiner Referred To Contact Transplant Surgery Diagnoses Type 2 diabetes mellitus (HCC-CMS) Carlota Jin MD Phone: tel: fax: [facility] Transplant - [address] [address] Phone: tel: fax: Referral ID Status Reason Start Date Expiration Date Visits Requested Visits Authorized [id number] Receiving Office to Obtain Authorization 1 1 Encounter Details Date Type Department Care Team (Late st Contact Info) Description 02/15/2024 10:00 EDT Nurse Only [facility] Transplant - [address] [id number] Transplant, Nurse Pre-transplant evaluation for kidney transplant (Primary Dx) [...] documented in this encounter Progress Notes * Sully Barba - 02/15/2024 1000 EDT Transplant Education Visit Gerson Kimaleks was seen 02/17/2024 for pre-transplant education. The education session was conductedin person. The following staff and their role participated in today's encounter visit: Sully Barba OSS The identified support person(s) were present: Melissa Bruner, spouse Education We talked about his candidacy, including a review of the criteria for candidacy with the [facility] kidney transplant program. We briefly discussed some of the functions of the kidney and discussed different forms of renal replacement therapies including hemodialysis, peritoneal dialysis, palliative care, and transplantation. The benefits of transplantation were discussed including the opportunity to stop dialysis or prevent the need for dialysis treatments, improved quality of life, increased life expectancy and fewer dietary restrictions. The following was reviewed: Role of the support person or team Purpose of the evaluation and steps in the process Required evaluation testing Expectations for communication with the transplant program Staying prepared for a transplant Organ matching, including KDPI and EPTS The surgical procedure Care after transplant Risks of transplantation were reviewed or explained, including, but are not limited to: Surgical risks: infection, bleeding, injury to surrounding organs, care home ICU care Anesthetic risks: breathing or heart problems, interactions or reaction to medications Transplant related risks. delayed graft function, primary non-function, infection risks associated with initial transplant, disease recurrence, donor risk factors to include infectious disease, readmission to the hospital, and . emt intermediate immunosuppression medication: infection, cancer risk, diabetes, electrolyte abnormalities, and healing complications Financial and psychosocial risks Additional education topics reviewed today include: NA The [facility] Transplant program October 2023 SRTR data was reviewed. Gerson understands the transplant team will be discussing his candidacy for transplant as needed throughout the evaluation process. Gerson expressed understanding that he may also choose not to move forward at this time. Gerson's questions were answered. Sully Barba 02/17/2024 11:14 documented in this encounter Plan of Treatment Upcoming Encounters Date Type Department Care Team (Late st Contact Info) Description 12/06/2024 6:45 EST Treatment [facility] [address] [place], [place] [id number] Carlota Jin MD [address] [place] [address], [facility] [address] [place] [phone] 12/08/2024 6:45 EST Treatment [facility] [address] [place], [place] [id number] Carlota Jin MD [address] [place] [address], [facility] [address] [place] [phone] 12/11/2024 6:45 EST Treatment [facility] [place] [address] [place], [place] [id number] Carlota Jin MD 1 [facility], [facility] [address] [place] [phone] 12/13/2024 6:45 EST Treatment [facility] [place] [address] [place], [place] [phone] Carlota Jin MD 1 [facility], [facility] [address] [place] [phone] 12/15/2024 6:45 EST Treatment [facility] [place] [address] [place], [place] [id number] Carlota Jin MD 1 [facility], [facility] [address] [place] [phone] 12/18/2024 6:45 EST Treatment [facility] [place] [address] [place], [place] [id number] Carlota Jin MD 1 [facility], [facility] [address] [place] [phone] 12/20/2024 6:45 EST Treatment [facility] [place] [address] [place], [place] [id number] Carlota Jin MD 1 [facility], [facility] [address] [place] [phone] 12/22/2024 6:45 EST Treatment [facility] [place] [address] [place], [place] [id number] Carlota Jin MD 1 [facility], [facility] [address] [place] [phone] 12/25/2024 6:45 EST Treatment [facility] [place] [address] [place], [place] [phone] Carlota Jin MD 1 [facility], [facility] [address] [place] [phone] 12/27/2024 6:45 EST Treatment [facility] [place] [address] [place], [place] [id number] Carlota Jin MD 1 [facility], [facility] [address] [place] [phone] 12/29/2024 6:45 EST Treatment [facility] [place] [address] [place], [place] [id number] Carlota Jin MD 1 [facility], [address] [phone] 01/01/2025 6:45 EDT Treatment [facility] [address] [place] [address] Carlota Jin MD 1 [facility], [facility] [address] [place] [phone] 01/03/2025 6:45 EDT Treatment [facility] [address] [place], [place] [phone] Carlota Jin MD 1 [facility], [facility] [address] [place] [phone] 01/05/2025 6:45 EDT Treatment [facility] [place] [address] [place], [place] [phone] Carlota Jin MD 1 [facility], [address] [phone] 01/08/2025 6:45 EDT Treatment [facility] [place] [address] [place], [place] [id number] Carlota Jin MD 1 [facility], [address] [phone] 01/10/2025 6:45 EDT Treatment [facility] [place] [address] [place], [place] [id number] Carlota Jin MD 1 [facility], [address] [phone] 01/12/2025 6:45 EDT Treatment [facility] [place] [address] [place], [place] [phone] Carlota Jin MD 1 [facility], [address] [phone] 01/15/2025 6:45 EDT Treatment [facility] [place] [address] [place], [place] [id number] Carlota Jin MD 1 [facility], [address] [phone] 01/17/2025 6:45 EDT Treatment [facility] [place] [address] [place], [place] [id number] Carlota Jin MD 1 [facility] Level [address] [place] [phone] 01/19/2025 6:45 EDT Treatment [facility] [place] [address] [place], [place] [address] Carlota Jin MD 1 [facility], [facility] [address] [place] [phone] 01/22/2025 6:45 EDT Treatment [facility] [place] [address] [place], [place] [phone] Carlota Jin MD 1 [facility], [facility] [address] [place] [phone] 01/24/2025 6:45 EDT Treatment [facility] [place] [address] [place] [address] Carlota Jin MD 1 [facility], [facility] [address] [place] [phone] 01/26/2025 6:45 EDT Treatment [facility] [address] [place] [address] Carlota Jin MD 1 [facility], [facility] [address] [place] [phone] 01/29/2025 6:45 EDT Treatment [facility] [address] [place], [place] [phone] Carlota Jin MD 1 [facility], [facility] [address] [place] [phone] 01/31/2025 6:45 EDT Treatment [facility] [place] [address] [place], [place] [phone] Carlota Jin MD 1 [facility], [facility] [address] [place] [phone] 02/02/2025 6:45 EDT Treatment [facility] [place] [address] [place], [place] [phone] Carlota Jin MD 1 [facility], [facility] [address] [place] [phone] 02/05/2025 6:45 EDT Treatment [facility] [place] [address] [place], [place] [id number] Carlota Jin MD [address] [place] [address], [facility] [address] [place] [phone] 02/07/2025 6:45 EDT Treatment [facility] [place] [address] [place], [place] [phone] Carlota Jin MD [address] [place] [address], [facility] [address] [place] [phone] 02/09/2025 6:45 EDT Treatment [facility] [place] [address] [place], [place] [phone] Carlota Jin MD 1 [facility], [facility] [address] [place] [phone] 02/12/2025 6:45 EDT Treatment [facility] [place] [address] [place], [place] [phone] Carlota Jin MD [address] [phone] 02/14/2025 6:45 EDT Treatment [facility] [place] [address] [place], [place] [phone] Carlota Jin MD [address] [place] [phone] 02/16/2025 6:45 EDT Treatment [facility] [place] [address] [place], [place] [id number] Carlota Jin MD [address] [place] [phone] 02/19/2025 6:45 EDT Treatment [facility] [place] [address] [place], [place] [id number] Carlota Jin MD [address] [place] [phone] 02/21/2025 6:45 EDT Treatment [facility] [place] [address] [place], [place] [phone] Carlota Jin MD [address] [place] [phone] documented as of this encounter Visit Diagnoses Diagnosis Pre-transplant evaluation for kidney transplant- Primary Other specified pre-operative examination documented in this encounter Care Teams Field Software Engineer Relationship Specialty Start Date End Date [place] [address] PCP - General 07/07/23 documented as of this encounter
--- OUTSIDE RECORDS SUMMARY | 2024-12-05 12:08 | XMS_ITS | Encounter Summary ---
Author Organization [facility] Address [address] [place] [address] Care Team Providers Care Packing And Wrapping Supervisor Name Role Phone Ken Greer MD Primary Care Provider [phone] Reason for Visit * Reason Comments Follow-up Wound Check Encounter Details Date Type Department Care Team (Late st Contact Info) Description 02/08/2024 11:00 EDT Office Visit [facility] Endovascular Therapy - [address] [phone] Teja Whipple MD [address] [place] [address], [address] [place] [address] Pain of left lower extremity (Primary Dx) Social History Tobacco Use Types [...] Sign Reading Time Taken Comments Blood Pressure 170/78 02/08/2024 1116 EDT Pulse 84 02/08/2024 1116 EDT Temperature - - Respiratory Rate - - Oxygen Saturation 97% 02/08/2024 1116 EDT Inhaled Oxygen Concentration - - Weight - [...] documented in this encounter Progress Notes * Teja Whipple MD - 02/08/2024 1100 EDT Xander is here today in the office with his . He had an extensive left heel debridement and has shown not much by way of healing in that left heel. He has been seen by a research epidemiologist down in [facility] and the research epidemiologist sent him back up to our clinic. [place]invasive studies done [place] normal perfusion of the foot; toe pressures of 90 on the left, 110 on the right, really doesnot have circulatory impairments. Here today in the office, he has a palpable dorsalis pedis pulse on the left foot, which is the affected foot. He has a big tissue defect in the heel. The options for Xander really are to continue to forge ahead with conservative therapy, which really did not seem to be working versus a kckjw-sgy-bjir amputation. He really does not have a circulatory impairment in the foot. We did inform him that tlkyv-mrl-ijqb amputation is something that could certainly be done down at [facility] the orthopedic group there is completely capable of that and he is going to think about that and talk to his research epidemiologist about next steps. This office note has been dictated. Teja Whipple MD 02/08/2024 11:49 documented in this encounter Plan of Treatment Upcoming Encounters Date Type Department Care Team (Late st Contact Info) Description 12/06/2024 6:45 EST Treatment [facility] [address] [place], [place] [phone] Carlota Jin MD [address] [phone] 12/08/2024 6:45 EST Treatment [facility] [address] [place], [place] [id number] Carlota Jin MD [address] [phone] 12/11/2024 6:45 EST Treatment [facility] [address] [place], [place] [id number] Carlota Jin MD [address] [phone] 12/13/2024 6:45 EST Treatment [facility] [address] [place], [place] [id number] Carlota Jin MD [address] [phone] 12/15/2024 6:45 EST Treatment [facility] [place] [address] [place], [place] [id number] Carlota Jin MD 1 [facility], [facility] [address] [place] [phone] 12/18/2024 6:45 EST Treatment [facility] [place] [address] [place], [place] [id number] Carlota Jin MD 1 [facility], [facility] [address] [place] [phone] 12/20/2024 6:45 EST Treatment [facility] [place] [address] [place] [address] Carlota Jin MD 1 [facility], [facility] [address] [place] [phone] 12/22/2024 6:45 EST Treatment [facility] [address] [place], [place] [id number] Carlota Jin MD 1 [facility], [facility] [address] [place] [phone] 12/25/2024 6:45 EST Treatment [facility] [address] [place], [place] [id number] Carlota Jin MD 1 [facility], [facility] [address] [place] [phone] 12/27/2024 6:45 EST Treatment [facility] [place] [address] [place], [place] [id number] Carlota Jin MD 1 [facility], [facility] [address] [place] [phone] 12/29/2024 6:45 EST Treatment [facility] [place] [address] [place], [place] [id number] Carlota Jin MD 1 [facility], [address] [phone] 01/01/2025 6:45 EDT Treatment [facility] [place] [address] [place], [place] [id number] Carlota Jin MD 1 [facility], [address] [phone] 01/03/2025 6:45 EDT Treatment [facility] [place] [address] [place], [place] [id number] Carlota Jin MD [address] [phone] 01/05/2025 6:45 EDT Treatment [facility] [place] [address] [place], [place] [id number] Carlota Jin MD [address] [phone] 01/08/2025 6:45 EDT Treatment [facility] [place] [address] [place], [place] [id number] Carlota Jin MD 1 [facility], [facility] [address] [place] [phone] 01/10/2025 6:45 EDT Treatment [facility] [place] [address] [place], [place] [id number] Carlota Jin MD 1 [facility], [facility] [address] [place] [phone] 01/12/2025 6:45 EDT Treatment [facility] [place] [address] [place], [place] [id number] Carlota Jin MD 1 [facility], [facility] [address] [place] [phone] 01/15/2025 6:45 EDT Treatment [facility] [place] [address] [place], [place] [id number] Carlota Jin MD 1 [facility], [facility] [address] [place] [phone] 01/17/2025 6:45 EDT Treatment [facility] [place] [address] [place], [place] [id number] Carlota Jin MD 1 [facility], [facility] [address] [place] [phone] 01/19/2025 6:45 EDT Treatment [facility] [place] [address] [place], [place] [id number] Carlota Jin MD 1 [facility], [facility] [address] [place] [phone] 01/22/2025 6:45 EDT Treatment [facility] [place] [address] [place], [place] [id number] Carlota Jin MD 1 [facility], [facility] [address] [place] [phone] 01/24/2025 6:45 EDT Treatment [facility] [place] [address] [place], [place] [id number] Carlota Jin MD [address] [place] [address], [address] [phone] 01/26/2025 6:45 EDT Treatment [facility] [place] [address] [place], [place] [id number] Carlota Jin MD [address] [place] [address], [address] [phone] 01/29/2025 6:45 EDT Treatment [facility] [place] [address] [place], [place] [id number] Carlota Jin MD 1 [facility], [facility] [address] [place] [phone] 01/31/2025 6:45 EDT Treatment [facility] [place] [address] [place], [place] [id number] Carlota Jin MD [address] [place] [address], [facility] [address] [place] [phone] 02/02/2025 6:45 EDT Treatment [facility] [place] [address] [place], [place] [id number] Carlota Jin MD 1 [facility], [address] [place] [phone] 02/05/2025 6:45 EDT Treatment [facility] [place] [address] [place], [place] [id number] Carlota Jin MD 1 [facility], [facility] [address] [place] [phone] 02/07/2025 6:45 EDT Treatment [facility] [address] [place], [place] [id number] Carlota Jin MD 1 [facility], [facility] [address] [place] [phone] 02/09/2025 6:45 EDT Treatment [facility] [place] [address] [place] [address] Carlota Jin MD 1 [facility], [facility] [address] [place] [phone] 02/12/2025 6:45 EDT Treatment [facility] [address] [place], [place] [id number] Carlota Jin MD 1 [facility], [facility] [address] [place] [phone] 02/14/2025 6:45 EDT Treatment [facility] [address] [place], [place] [id number] Carlota Jin MD 1 [facility], [facility] [address] [place] [phone] 02/16/2025 6:45 EDT Treatment [facility] [place] [address] [place], [place] [id number] Carlota Jin MD 1 [facility], [facility] [address] [place] [phone] 02/19/2025 6:45 EDT Treatment [facility] [place] [address] [place], [place] [id number] Carlota Jin MD 1 [facility], [facility] [address] [place] [phone] 02/21/2025 6:45 EDT Treatment [facility] [address] [place], [place] [id number] Carlota Jin MD 1 [facility], [facility] [address] [place] [phone] documented as of this encounter Visit Diagnoses Diagnosis Pain of left lower extremity- Primary documented in this encounter Care Teams Packing And Wrapping Supervisor Relationship Specialty Start Date End Date Ken Greer MD Mohit [facility] [address] PCP - General 07/07/23 documented as of this encounter
--- OUTSIDE RECORDS SUMMARY | 2024-12-05 12:08 | XMS_ITS | Encounter Summary ---
Author Organization [facility] Address [address] [place] [address] Care Team Providers Care Billing Department Supervisor Name Role Phone Ken Greer MD Primary Care Provider [phone] Encounter Details Date Type Department Care Team (Late st Contact Info) Description 02/11/2024 Documentation Visit [address] [place], [place] [id number] Melissa Crespo, RN Social History Tobacco Use [...] 12/06/2024 6:45 EST Treatment [facility] [place] [address] [place], [place] [id number] Carlota Jin MD 1 [facility], [facility] [address] [place] [phone] 12/08/2024 6:45 EST Treatment [facility] [place] [address] [place], [place] [id number] Carlota Jin MD 1 [facility] 2 [place] [phone] 12/11/2024 6:45 EST Treatment [facility] [place] [address] [place], [place] [id number] Carlota Jin MD 1 [facility], [facility] [address] [place] [phone] 12/13/2024 6:45 EST Treatment [facility] [address] [place], [place] [id number] Carlota Jin MD 1 [facility] [address] [place] [phone] 12/15/2024 6:45 EST Treatment [facility] [place] [address] [place], [place] [id number] Carlota Jin MD 1 [facility], [facility] [address] [place] [phone] 12/18/2024 6:45 EST Treatment [facility] [place] [address] [place], [place] [id number] Carlota Jin MD 1 [facility], [facility] [address] [place] [phone] 12/20/2024 6:45 EST Treatment [facility] [place] [address] [place], [place] [id number] Carlota Jin MD 1 [facility], [facility] [address] [place] [phone] 12/22/2024 6:45 EST Treatment [facility] [address] [place], [place] [id number] Carlota Jin MD 1 [facility], [facility] [address] [place] [phone] 12/25/2024 6:45 EST Treatment [facility] [address] [place], [place] [id number] Carlota Jin MD 1 [facility], [facility] [address] [place] [phone] 12/27/2024 6:45 EST Treatment [facility] [place] [address] [place], [place] [id number] Carlota Jin MD 1 [facility], [facility] [address] [place] [phone] 12/29/2024 6:45 EST Treatment [facility] [place] [address] [place], [place] [id number] Carlota Jin MD 1 [facility], [address] [phone] 01/01/2025 6:45 EDT Treatment [facility] [place] [address] [place], [place] [id number] Carlota Jin MD 1 [facility], [address] [phone] 01/03/2025 6:45 EDT Treatment [facility] [place] [address] [place], [place] [id number] Carlota Jin MD 1 [facility], [address] [phone] 01/05/2025 6:45 EDT Treatment [facility] [place] [address] [place], [place] [id number] Carlota Jin MD [address] [place] [address], [facility] [address] [place] [phone] 01/08/2025 6:45 EDT Treatment [facility] [place] [address] [place], [place] [id number] Carlota Jin MD 1 [facility], Level [address] [place] [phone] 01/10/2025 6:45 EDT Treatment [facility] [place] [address] [place], [place] [id number] Carlota Jin MD 1 [facility], [facility] [address] [place] [phone] 01/12/2025 6:45 EDT Treatment [facility] [place] [address] [place], [place] [id number] Carlota Jin MD 1 [facility], [facility] 2 [place] [phone] 01/15/2025 6:45 EDT Treatment [facility] [place] [address] [place], [place] [id number] Carlota Jin MD 1 [facility], [facility] [address] [place] [phone] 01/17/2025 6:45 EDT Treatment [facility] [address] [place], [place] [id number] Carlota Jin MD 1 [facility], [facility] 2 [place] [phone] 01/19/2025 6:45 EDT Treatment [facility] [address] [place], [place] [id number] Carlota Jin MD 1 [facility], [facility] [address] [place] [phone] 01/22/2025 6:45 EDT Treatment [facility] [place] [address] [place], [place] [id number] Carlota Jin MD 1 [facility], [facility] 2 [place] [phone] 01/24/2025 6:45 EDT Treatment [facility] [place] [address] [place], [place] [id number] Carlota Jin MD 1 [facility], [facility] 2 [place] [phone] 01/26/2025 6:45 EDT Treatment [facility] [place] [address] [place], [place] [id number] Carlota Jin MD 1 [facility], [facility] [address] [place] [phone] 01/29/2025 6:45 EDT Treatment [facility] [place] [address] [place], [place] [id number] Carlota Jin MD 1 [facility], [facility] [address] [place] [phone] 01/31/2025 6:45 EDT Treatment [facility] [place] [address] [place], [place] [id number] Carlota Jin MD 1 [facility], [facility] 2 [place] [phone] 02/02/2025 6:45 EDT Treatment [facility] [place] [address] [place], [place] [id number] Carlota Jin MD 1 [facility], [facility] 2 [place] [phone] 02/05/2025 6:45 EDT Treatment [facility] [place] [address] [place], [place] [id number] Carlota Jin MD 1 [facility], [facility] 2 [place] [phone] 02/07/2025 6:45 EDT Treatment [facility] [place] [address] [place] [address] Carlota Jin MD 1 [facility], [address] [phone] 02/09/2025 6:45 EDT Treatment [facility] [place] [address] [place], [place] [id number] Carlota Jin MD 1 [facility], [address] [phone] 02/12/2025 6:45 EDT Treatment [facility] [place] [address] [place] [address] Carlota Jin MD 1 [facility], [facility] 2 [place] [phone] 02/14/2025 6:45 EDT Treatment [facility] [place] [address] [place], [place] [id number] Carlota Jin MD 1 [facility], [facility] 2 [place] [phone] 02/16/2025 6:45 EDT Treatment [facility] [address] [place], [place] [id number] Carlota Jin MD 1 [facility], [facility] 2 [place] [phone] 02/19/2025 6:45 EDT [facility] [address] [place], [place] [id number] Carlota Jin MD [address] [place] [address], [facility] [address] [place] [phone] 02/21/2025 6:45 EDT Treatment [facility] [address] [place], [place] [id number] Carlota Jin MD [address] [place] [address], [facility] [address] [place] [phone] documented as of this encounter Visit Diagnoses Not on filedocumented in this encounter Care Teams Billing Department Supervisor Relationship Specialty Start Date End Date [place] [address] PCP - General 07/07/23 documented as of this encounter
--- OUTSIDE RECORDS SUMMARY | 2024-12-05 12:09 | XMS_ITS | Encounter Summary ---
Author Organization [facility] Address [address] [place] [address] Care Team Providers Care Retort Kiln Burner Name Role Phone Ken Greer MD Primary Care Provider [phone] Encounter Details Date Type Department Care Team (Latest Contact Info) Description 02/02/2024 6:45 EDT Treatment [facility] [address] [place], [place] [phone] Carlota Jin MD [address] [facility] [place] [place] [address] [place] [phone] ESRD (end stage renal disease) ([facility]) (Primary Dx); Anemia of chronic renal failure, unspecified CKD stage; Hypoalbuminemia; Secondary hyperparathyroidism ([facility]) Social History Tobacco Use Types [...] - Temperature - - Respiratory Rate 16 02/02/2024 0629 EDT Oxygen Saturation - - Inhaled Oxygen Concentration - - Weight 89.9 kg (198 lb 3.1 oz) 02/02/2024 0628 E DT Height - - Body [...] Flowsheet Note - Marcela Cox RN - 02/02/2024 1332 EDT 02/02/24 1100 Post-Hemodialysis Assessment Total Blood Processed (L) 89.95 Liters On Line Clearance: spKt/V 1.55 spKt/V Dialyzer Clearance Lightly streaked Treatment UFR (ml:kg:hr) 8.93 ml:kg:hr Fluid Removed (L) 3.5 L Post-Dialysis Scale Weight 107.6 kg (237 lb 3.4 oz) Wheelchair Weight 20.9 kg (46 lb 1.2 oz) Prosthesis Weight 0 kg (0 lb) Post-Treatment Weight (kg) 86.7 Treatment Weight Change (kg) 3.2 kg Day Target Weight (kg) 86.9 Post Sitting/Lying BP 165/85 Post Sitting/Lying pulse 68 Temp 36.1 ??C (97 ??F) Temp src Temporal Post access assessment [...] Treatment [facility] [place] [address] [place], [place] [id number] Carlota Jin MD [address] [phone] 12/08/2024 6:45 EST Treatment [facility] [place] [address] [place], [place] [id number] Carlota Jin MD [address] [phone] 12/11/2024 6:45 EST Treatment [facility] [place] [address] [place], [place] [id number] Carlota Jin MD [address] [place] [phone] 12/13/2024 6:45 EST Treatment [facility] [address] [place], [place] [id number] Carlota Jin MD [address] [place] [address] [place] [phone] 12/15/2024 6:45 EST Treatment [facility] [place] [address] [place], [place] [id number] Carlota Jin MD 1 [facility] 2 [place] [phone] 12/18/2024 6:45 EST Treatment [facility] [place] [address] [place], [place] [id number] Carlota Jin MD 1 [facility], [facility] 2 [place] [phone] 12/20/2024 6:45 EST Treatment [facility] [place] [address] [place], [place] [id number] Carlota Jin MD [address] [facility] [place], [facility] 2 [place] [phone] 12/22/2024 6:45 EST Treatment [facility] [address] [place], [place] [id number] Carlota Jin MD 1 [facility], [facility] 2 [place] [phone] 12/25/2024 6:45 EST Treatment [facility] [address] [place], [place] [id number] Carlota Jin MD [address] [facility] [place], [facility] [address] [place] [phone] 12/27/2024 6:45 EST Treatment [facility] [place] [address] [place], [place] [id number] Carlota Jin MD [address] [facility] [place], [facility] 2 [place] [phone] 12/29/2024 6:45 EST Treatment [facility] [place] [address] [place], [place] [id number] Carlota Jin MD [address] [facility] [place], [facility] 2 [place] [phone] 01/01/2025 6:45 EDT Treatment [facility] [place] [address] [place], [place] [id number] Carlota Jin MD [address] [facility] [place], [facility] 2 [place] [phone] 01/03/2025 6:45 EDT Treatment [facility] [place] [address] [place], [place] [id number] Carlota Jin MD [address] [facility] [place], [facility] 2 [place] [phone] 01/05/2025 6:45 EDT Treatment [facility] [place] [address] [place], [place] [id number] Carlota Jin MD [address] [facility] [place], [facility] 2 [place] [phone] 01/08/2025 6:45 EDT Treatment [facility] [place] [address] [place], [place] [id number] Carlota Jin MD 1 [facility] 2 [place] [phone] 01/10/2025 6:45 EDT Treatment [facility] [place] [address] [place], [place] [id number] Carlota Jin MD 1 [facility], [facility] 2 [place] [phone] 01/12/2025 6:45 EDT Treatment [facility] [place] [address] [place], [place] [id number] Carlota Jin MD [address] [facility] [place], [facility] 2 [place] [phone] 01/15/2025 6:45 EDT Treatment [facility] [place] [address] [place], [place] [id number] Carlota Jin MD 1 [facility], [facility] 2 [place] [phone] 01/17/2025 6:45 EDT Treatment [facility] [place] [address] [place], [place] [id number] Carlota Jin MD 1 [facility], [facility] 2 [place] [phone] 01/19/2025 6:45 EDT Treatment [facility] [address] [place], [place] [id number] Carlota Jin MD 1 [facility], [facility] 2 [place] [phone] 01/22/2025 6:45 EDT Treatment [facility] [place] [address] [place], [place] [phone] Carlota Jin MD [address] [facility] [place], [facility] 2 [place] [phone] 01/24/2025 6:45 EDT Treatment [facility] [place] [address] [place], [place] [id number] Carlota Jin MD [address] [facility] [place], [address] [phone] 01/26/2025 6:45 EDT Treatment [facility] [place] [address] [place], [place] [id number] Carlota Jin MD [address] [facility] [place], [address] [phone] 01/29/2025 6:45 EDT Treatment [facility] [place] [address] [place], [place] [id number] Carlota Jin MD [address] [facility] [place], [facility] 2 [place] [phone] 01/31/2025 6:45 EDT Treatment [facility] [place] [address] [place], [place] [id number] Carlota iJn MD [address] [facility] [place], [facility] 2 [place] [phone] 02/02/2025 6:45 EDT Treatment [facility] [place] [address] [place], [place] [id number] Carlota Jin MD 1 [facility], [facility] 2 [place] [phone] 02/05/2025 6:45 EDT Treatment [facility] [place] [address] [place], [place] [id number] Carlota Jin MD 1 [facility], [facility] 2 [place] [phone] 02/07/2025 6:45 EDT Treatment [facility] [place] [address] [place] [address] Carlota Jin MD [address] [facility] [place], [facility] 2 [place] [phone] 02/09/2025 6:45 EDT Treatment [facility] [place] [address] [place] [address] Carlota Jin MD [address] [facility] [place], [facility] 2 [place] [phone] 02/12/2025 6:45 EDT Treatment [facility] [place] [address] [place] [address] Carlota Jin MD [address] [facility] [place], [facility] 2 [place] [phone] 02/14/2025 6:45 EDT Treatment [facility] [place] [address] [place], [place] [id number] Carltoa Jin MD [address] [facility] [place], [facility] 2 [place] [phone] 02/16/2025 6:45 EDT Treatment [facility] [place] [address] [place], [place] [id number] Carlota Jin MD [address] [facility] [place], [facility] 2 [place] [phone] 02/19/2025 6:45 EDT Treatment [facility] [place] [address] [place], [place] [id number] Carlota Jin MD [address] [facility] [place], [facility] 2 [place] [phone] 02/21/2025 6:45 EDT Treatment [facility] [place] [address] [place], [place] [id number] Carlota Jin MD [address] [facility] [place], [facility] 2 [place] [phone] documented as of this encounter Procedures Procedure Name Priority Date/Time Associated Diagnosis Comments PTT Routine 02/02/2024 11:12 EDT COMPLETE BLOOD COUNT Routine 02/02/2024 6:34 EDT ESRD (end stage renal disease) ([facility]) HEMODIALYSIS Routine 02/02/2024 6:29 EDT ESRD (end stage renal disease) ([facility]) documented in this encounter Results * PTT (02/02/2024 11:12 EDT) PTT 33 26 - 37 secs 02/02/2024 23:01 EDT [facility] Blood VENOUS BLOOD / Unknown Venipuncture / Unknown 02/02/2024 11:12 EDT 02/02/2024 11:12 EDT Narrative [facility] - 02/02/2024 23:01 EDT Slightly lipemic us Carlota Jin MD HEMATOLOGY & PF4 ORDERABL ES Final Result [facility] [address] [place] [address] * (ABNORMAL) COMPLETE BLOOD COUNT (02/02/2024 6:34 EDT) WBC 11.44(H) 4.00 - 10.40 K/cmm 02/02/2024 23:31 [facility] RBC 2.71(L) 4.36 - 5.78 M/cmm 02/02/2024 23:31 [facility] Hemoglobin 8.1(L) 13.8 - 17.3 g/dL 02/02/2024 23:31 [facility] HCT 24.6(L) 39.5 - 50.2 % 02/02/2024 23:31 [facility] MCV 91 81 - 95 fL 02/02/2024 23:31 [facility] MCH 29.9 27.6 - 33.0 pg 02/02/2024 23:31 [facility] MCHC 32.9 32.8 - 36.4 g/dL 02/02/2024 23:31 [facility] RDW-CV 13.4 <14.2 % 02/02/2024 23:31 [facility] RDW-SD 44.4 <46.0 fl 02/02/2024 23:31 [facility] PLT 387(H) 141 - 377 K/cmm 02/02/2024 23:31 [facility] MPV 11.4 9.5 - 12.7 fL 02/02/2024 23:31 [facility] Blood VENOUS BLOOD / Unknown Venipuncture / Unknown 02/02/2024 6:34 EDT 02/02/2024 6:34 EDT Skye Gomez NP HEMATOLOGY & PF4 ORDERABLES Final Result [facility] [address] [place] [address] documented in this encounter Visit Diagnoses Diagnosis ESRD (end stage renal disease) ([facility])- Primary End stage renal disease Anemia of chronic renal failure, unspecified CKD stage Hypoalbuminemia Other disorders of plasma protein metabolism Secondary hyperparathyroidism ([facility]) Secondary hyperparathyroidism (of renal origin) documented in this encounter Administered Medications Inactive Administered Medications - up to 3 most recent administrations Medication Order MAR Action Action Date Dose Rate Site acetaminophen (TYLENOL) tablet 650 mg 650 mg, oral, EVERY 4 HOURS PRN, Starting on Wed02/02/24 at 0631, Until Wed02/02/24 at 1532, Pain, Routine, DialysisIndications:ESRD (end stage renal disease) ([facility]) Given 02/02/2024 6:48 EDT 650 mg calcium carbonate (TUMS) tablet 500 mg (200 mg elemental calcium) 2 Tablet 2 Tablet, oral, ONCE IN DIALYSIS, 1 dose, On Wed02/02/24 at 0645, Routine, DialysisIndications:ESRD (end stage renal disease) ([facility]),Secondary hyperparathyroidism ([facility]) Given 02/02/2024 6:48 EDT 2 Tablets epoetin ken (EPOGEN) 20,000 unit/2 mL injection 4,000 Units 4,000 Units, intravenous, ONCE IN DIALYSIS, 1 dose, On Wed02/02/24 at 0645, Routine, DialysisIndications:ESRD (end stage renal disease) ([facility]),Anemia of chronic renal failure, unspecified CKD stage Given 02/02/2024 6:48 EDT 4,000 Units heparin injection 9,000 Units 9,000 Units, intravenous, ONCE IN DIALYSIS, 1 dose, On Wed02/02/24 at 0645, Routine, Dialysis, Now x1 bolus 4500 units to be given at the beginning of dialysis 1500 units/hour to be given over the course of dialysis (9000 units total). Stop 1 hour prior to end of treatment. To be administered per Policy [id number].Indications:ESRD (end stage renal disease) ([facility]) Given 02/02/2024 6:48 EDT 9,000 Units LiquaCel liquid protein liquid 30 mL 30 mL, oral, ONCE IN DIALYSIS, 1 dose, On Wed02/02/24 at 0645, RoutineIndications:ESRD (end stage renal disease) ([facility]),Hypoalbuminemia Given 02/02/2024 6:48 EDT 30 mL documented in this encounter Orders Dialysis Count Last Ordered Date First Orde red Date HEMODIALYSIS 1 02/02/2024 documented in this encounter Care Teams Retort Kiln Burner Relationship Specialty Start Date End Date Ken Greer MD [facility] [place] [address] PCP - General 07/07/23 documented as of this encounter
--- OUTSIDE RECORDS SUMMARY | 2024-12-05 12:09 | XMS_ITS | Encounter Summary ---
Author Organization [facility] Address [address] [place] [address] Care Team Providers Care Helicopter Pilot Name Role Phone Ken Greer MD Primary Care Provider [phone] Encounter Details Date Type Department Care Team (Late st Contact Info) Description 01/30/2024 Documentation Visit [address] [place], [place] [address] Melissa Crespo, RN Social History Tobacco Use [...] Contact Info) Description 12/06/2024 6:45 EST Treatment [facility] [place] [address] [place], [place] [id number] Carlota Jin MD 1 [facility], [facility] 2 [place] [phone] 12/08/2024 6:45 EST Treatment [facility] [place] [address] [place], [place] [phone] Carlota Jin MD 1 [facility] 2 [place] [phone] 12/11/2024 6:45 EST Treatment [facility] [place] [address] [place], [place] [id number] Carlota Jin MD 1 [facility], [facility] 2 [place] [phone] 12/13/2024 6:45 EST Treatment [facility] [address] [place], [place] [phone] Carlota Jin MD 1 [facility], [facility] 2 [place] [phone] 12/15/2024 6:45 EST Treatment [facility] [place] [address] [place], [place] [phone] Carlota Jin MD 1 [facility], [facility] 2 [place] [phone] 12/18/2024 6:45 EST Treatment [facility] [place] [address] [place], [place] [phone] Carlota Jin MD 1 [facility], [facility] 2 [place] [phone] 12/20/2024 6:45 EST Treatment [facility] [place] [address] [place], [place] [phone] Carlota Jin MD 1 [facility], [facility] 2 [place] [phone] 12/22/2024 6:45 EST Treatment [facility] [address] [place], [place] [phone] Carlota Jin MD 1 [facility], [facility] 2 [place] [phone] 12/25/2024 6:45 EST Treatment [facility] [address] [place], [place] [phone] Carlota Jin MD 1 [facility], [facility] 2 [place] [phone] 12/27/2024 6:45 EST Treatment [facility] [place] [address] [place], [place] [phone] Carlota Jin MD 1 [facility], [facility] 2 [place] [phone] 12/29/2024 6:45 EST Treatment [facility] [place] [address] [place], [place] [phone] Carlota Jin MD 1 [facility], [address] [phone] 01/01/2025 6:45 EDT Treatment [facility] [place] [address] [place], [place] [phone] Carlota Jin MD 1 [facility], [address] [phone] 01/03/2025 6:45 EDT Treatment [facility] [place] [address] [place], [place] [phone] Carlota Jin MD 1 [facility], [address] [phone] 01/05/2025 6:45 EDT Treatment [facility] [place] [address] [place], [place] [phone] Carlota Jin MD [address] [place] [address], [facility] 2 [place] [phone] 01/08/2025 6:45 EDT Treatment [facility] [place] [address] [place], [place] [phone] Carlota Jin MD 1 [facility], Level [address] [place] [phone] 01/10/2025 6:45 EDT Treatment [facility] [place] [address] [place], [place] [address] Carlota Jin MD 1 [facility], [facility] 2 [place] [phone] 01/12/2025 6:45 EDT Treatment [facility] [place] [address] [place], [place] [phone] Carlota Jin MD 1 [facility], [facility] 2 [place] [phone] 01/15/2025 6:45 EDT Treatment [facility] [place] [address] [place], [place] [phone] Carlota Jin MD 1 [facility], [facility] 2 [place] [phone] 01/17/2025 6:45 EDT Treatment [facility] [address] [place], [place] [phone] Carlota Jin MD 1 [facility], [facility] 2 [place] [phone] 01/19/2025 6:45 EDT Treatment [facility] [address] [place], [place] [phone] Carlota Jin MD 1 [facility], [facility] 2 [place] [phone] 01/22/2025 6:45 EDT Treatment [facility] [place] [address] [place], [place] [phone] Carlota Jin MD 1 [facility], [facility] 2 [place] [phone] 01/24/2025 6:45 EDT Treatment [facility] [place] [address] [place], [place] [phone] Carlota Jin MD 1 [facility], [facility] 2 [place] [phone] 01/26/2025 6:45 EDT Treatment [facility] [place] [address] [place], [place] [phone] Carlota Jin MD 1 [facility], [facility] 2 [place] [phone] 01/29/2025 6:45 EDT Treatment [facility] [place] [address] [place], [place] [phone] Carlota Jin MD 1 [facility], [facility] 2 [place] [phone] 01/31/2025 6:45 EDT Treatment [facility] [place] [address] [place], [place] [phone] Carlota Jin MD 1 [facility], [facility] 2 [place] [phone] 02/02/2025 6:45 EDT Treatment [facility] [place] [address] [place], [place] [address] Carlota Jin MD 1 [facility], [facility] 2 [place] [phone] 02/05/2025 6:45 EDT Treatment [facility] [place] [address] [place], [place] [phone] Carlota Jin MD 1 [facility], [facility] 2 [place] [phone] 02/07/2025 6:45 EDT Treatment [facility] [place] [address] [place] [address] Carlota Jin MD 1 [facility], [address] [phone] 02/09/2025 6:45 EDT Treatment [facility] [place] [address] [place], [place] [address] Carlota Jin MD 1 [facility], [address] [phone] 02/12/2025 6:45 EDT Treatment [facility] [place] [address] [place] [address] Carlota Jin MD 1 [facility], [facility] 2 [place] [phone] 02/14/2025 6:45 EDT Treatment [facility] [place] [address] [place], [place] [id number] Carlota Jin MD 1 [facility], [facility] 2 [place] [phone] 02/16/2025 6:45 EDT Treatment [facility] [address] [place], [place] [phone] Carlota Jin MD 1 [facility], [facility] 2 [place] [phone] 02/19/2025 6:45 EDT [facility] [address] [place], [place] [phone] Carlota Jin MD [address] [place] [address], [facility] 2 [place] [phone] 02/21/2025 6:45 EDT Treatment [facility] [address] [place], [place] [phone] Carlota Jin MD [address] [place] [address], [facility] 2 [place] [phone] documented as of this encounter Visit Diagnoses Not on filedocumented in this encounter Care Teams Helicopter Pilot Relationship Specialty Start Date End Date [place] [address] PCP - General 07/07/23 documented as of this encounter
--- OUTSIDE RECORDS SUMMARY | 2024-12-05 12:09 | XMS_ITS | Encounter Summary ---
Author Organization [facility] Address [address] [place] [address] Care Team Providers Care Pediatric Hospitalist Name Role Phone Ken Greer MD Primary Care Provider [phone] Encounter Details Date Type Department Care Team (Late st Contact Info) Description 01/23/2024 Documentation Visit [facility] - [address] [id number] Archie Bagley [facility] Social History Tobacco Use Types Packs/Day Years [...] documented in this encounter Progress Notes * Archie Bagley RPH - 01/23/2024 1511 EDT Renal Pharmacist Note: Vancomycin Monitoring 58 yo male receiving Vancomycin 850 mg IV q dialysis for the treatment of a DM foot infection Vancomycin level pre-dialysis on 01/20= 12.5 mcg/mL Assessment and Plan: 1). Vancomycin level pre-dialysis is within therapeutic range (10-20 mcg/mL) 2). Continuing with vancomycin 850 mg IV q dialysis 3). Pharmacy will order subsequent level when appropriate per protocol Pharmacy will continue to follow Archie Bagley PharmD, BCPS #[id number] documented in this encounter Plan of Treatment Upcoming Encounters Date Type Department Care Team (Late st Contact Info) Description 12/06/2024 6:45 EST Treatment [facility] [place] [address] [place] [address] Carlota Jin MD 1 [facility], Level [address] [place] [address] 12/08/2024 6:45 EST Treatment [facility] [place] [address] [place] [address] Carlota Jin MD 1 [facility], [facility] [address] [place] [phone] 12/11/2024 6:45 EST Treatment [facility] [place] [address] [place], [place] [address] Carlota Jin MD 1 [facility], [facility] [address] [place] [phone] 12/13/2024 6:45 EST Treatment [facility] [place] [address] [place], [place] [address] Carlota Jin MD 1 [facility], [facility] 2 [place] [phone] 12/15/2024 6:45 EST Treatment [facility] [place] [address] [place], [place] [address] [phone] Carlota Jin MD 1 [facility], [facility] 2 [place] [phone] 12/18/2024 6:45 EST Treatment [facility] [place] [address] [place] [address] Carlota Jin MD 1 [facility], [facility] 2 [place] [phone] 12/20/2024 6:45 EST Treatment [facility] [place] [address] [place], [place] [phone] Carlota Jin MD 1 [facility], [facility] 2 [place] [phone] 12/22/2024 6:45 EST Treatment [facility] [place] [address] [place] [address] Carlota Jin MD 1 [facility], [facility] 2 [place] [phone] 12/25/2024 6:45 EST Treatment [facility] [place] [address] [place] [address] Carlota Jin MD 1 [facility], [facility] 2 [place] [phone] 12/27/2024 6:45 EST Treatment [facility] [place] [address] [place], [place] [phone] Carlota Jin MD 1 [facility], [address] [phone] 12/29/2024 6:45 EST Treatment [facility] [place] [address] [place], [place] [phone] Carlota Jin MD 1 [facility], [address] [phone] 01/01/2025 6:45 EDT Treatment [facility] [place] [address] [place], [place] [phone] Carlota Jin MD 1 [facility], [facility] 2 [place] [phone] 01/03/2025 6:45 EDT Treatment [facility] [place] [address] [place], [place] [address] Carlota Jin MD 1 [facility], [facility] 2 [place] [phone] 01/05/2025 6:45 EDT Treatment [facility] [place] [address] [place], [place] [address] Carlota Jin MD 1 [facility], [facility] 2 [place] [phone] 01/08/2025 6:45 EDT Treatment [facility] [place] [address] [place], [place] [address] Carlota Jin MD 1 [facility], [facility] 2 [place] [phone] 01/10/2025 6:45 EDT Treatment [facility] [place] [address] [place] [address] Carlota Jin MD [address] [place] [address], [address] [phone] 01/12/2025 6:45 EDT Treatment [facility] [place] [address] [place], [place] [address] Carlota Jin MD [address] [place] [address], [facility] 2 [place] [phone] 01/15/2025 6:45 EDT Treatment [facility] [place] [address] [place], [place] [phone] Carlota Jin MD 1 [facility], [facility] 2 [place] [phone] 01/17/2025 6:45 EDT Treatment [facility] [place] [address] [place], [place] [address] Carlota Jin MD 1 [facility], [facility] 2 [place] [phone] 01/19/2025 6:45 EDT Treatment [facility] [place] [address] [place], [place] [address] Carlota Jin MD 1 [facility], [facility] 2 [place] [phone] 01/22/2025 6:45 EDT Treatment [facility] [place] [address] [place], [place] [address] Carlota Jin MD 1 [facility], [address] [phone] 01/24/2025 6:45 EDT Treatment [facility] [place] [address] [place], [place] [address] Carlota Jin MD [address] [phone] 01/26/2025 6:45 EDT Treatment [facility] [place] [address] [place], [place] [address] Carlota Jin MD [address] [phone] 01/29/2025 6:45 EDT Treatment [facility] [place] [address] [place], [place] [address] Carlota Jin MD 1 [facility] 2 [place] [phone] 01/31/2025 6:45 EDT Treatment [facility] [place] [address] [place], [place] [address] Carlota Jin MD 1 [facility], [facility] 2 [place] [phone] 02/02/2025 6:45 EDT Treatment [facility] [place] [address] [place], [place] [address] Carlota Jin MD 1 [facility], [facility] 2 [place] [phone] 02/05/2025 6:45 EDT Treatment [facility] [place] [address] [place], [place] [address] Carlota Jin MD 1 [facility], [facility] 2 [place] [phone] 02/07/2025 6:45 EDT Treatment [facility] [place] [address] [place] [address] Carlota Jin MD 1 [facility], [facility] 2 [place] [phone] 02/09/2025 6:45 EDT Treatment [facility] [place] [address] [place], [place] [phone] Carlota Jin MD 1 [facility], [facility] 2 [place] [phone] 02/12/2025 6:45 EDT Treatment [facility] [place] [address] [place], [place] [address] Carlota Jin MD [address] [place] [phone] 02/14/2025 6:45 EDT Treatment [facility] [place] [address] [place], [place] [address] Carlota Jin MD [address] [place] [address] [phone] 02/16/2025 6:45 EDT Treatment [facility] [place] [address] [place], [place] [phone] Carlota Jin MD [address] [place] [phone] 02/19/2025 6:45 EDT Treatment [facility] [place] [address] [place], [place] [address] Carlota Jin MD [address] [place] [address] [phone] 02/21/2025 6:45 EDT Treatment [facility] [place] [address] [place], [place] [address] Carlota Jin MD [address] [place] [phone] documented as of this encounter Visit Diagnoses Not on filedocumented in this encounter Care Teams Pediatric Hospitalist Relationship Specialty Start Date End Date Ken Greer MD [address] [place] [address] PCP - General 07/07/23 documented as of this encounter
--- OUTSIDE RECORDS SUMMARY | 2024-12-05 12:09 | XMS_ITS | Encounter Summary ---
Author Organization [facility] Address [address] [place] [address] Care Team Providers Care Escrow Secretary Name Role Phone Ken Greer MD Primary Care Provider [phone] Encounter Details Date Type Department Care Team (Late st Contact Info) Description 01/18/2024 Documentation Visit [address] [place] [address] Shelley Eden, RD [address] [place] [address] Social History Tobacco Use Types Packs/Day Years [...] Progress Notes * Shelley Eden, RD - 01/18/2024 1420 EDT Dialysis Dietitian's Monthly Assessment Met with patient on 01/07/24 spoke with as Xander continues to be very sleepy and difficult to talk to at HD Family/caregivers or others present: lives with his Information obtained from: patient Recent Hospitalizations: 11/07-10/31/23 COVID and diabetic foot infection Subjective: Xander often is very sleepy and difficult to talk to at HD in addition he is hard of hearing. Spoke with his -she said he has A fib now and really is not doing much or going anywhere . She also reported that he had a fall. He has been on antibiotics for his foot wound. has been doing dressing changes. has been working hard to make him eat healthier . Discussed high proteinneeds with his and suggested using a protein powder at home . Appetite: Good Appetite scale (0-10): No number given Gastrointestinal: Some nausea with antibiotic use Skin integrity: Burn wound on leg and foot infection Diabetes: Yes does not check on bld sugars Diabetes Management: Self Monitoring of Blood Glucose on insulin but does not check Diet Recall: B coffee L turkey s/w and yogurt D egg dish broccoli and tater tots Fluid: Water, Coffee, Milk, Juice Alcohol: will need to f/u Prescribed Weight:86.5 Post-Dialytic Weight: 86.6 01/07/2024 11:25 01/10/2024 10:43 01/12/2024 11:07 01/14/2024 10:44 01/17/2024 11:01 - ( Kg ) 85.6 86.3 86.2 86 86.6 UFR: 01/07/2024 11:25 01/10/2024 10:43 01/12/2024 11:07 01/14/2024 10:44 01/17/2024 11:01 - mL/Kg/hr 7.36 ml:kg:hr 7.69 ml:kg:hr 6.76 ml:kg:hr 7.53 ml:kg:hr 12.16 ml:kg:hr URR: 70.588 (Calculated from:; BUN Pre-Dialysis: 51 mg/dL at 12/31/2023 10:57; BUN Post-Dialysis: 15 mg/dL at 12/31/2023 10:57) Kt/V: 1.45 (Calculated from:; BUN Pre-Dialysis: 51 mg/dL at 12/31/2023 10:57; BUN Post-Dialysis: 15 mg/dL at 12/31/2023 10:57; Pre-Treatment Weight (kg): 89.4 at 12/31/2023 6:28; Post-Treatment Weight (kg): 86.2 at 12/31/2023 10:57; Duration of Treatment (minutes): 244 minutes at 12/31/2023 10:46) PCR: 0.95 (Calculated from:; BUN Pre-Dialysis: 51 mg/dL at 12/31/2023 10:57; BUN Post-Dialysis: 15 mg/dL at 12/31/2023 10:57; Pre-Treatment Weight (kg): 89.4 at 12/31/2023 6:28; Post-Treatment Weight (kg):86.2 at 12/31/2023 10:57; Duration of Treatment (minutes): 244 minutes at 12/31/2023 10:46; Age: 58 years) Pertinent Labs include: Lab Results Component Value Date LABALBU 2.6 (L) 12/27/2023 LABALBU 2.7 (L) 12/20/2023 Lab Results Component Value Date BUNPRE 51 (H) 12/31/2023 BUNPRE 51 (H) 12/31/2023 NA 131 (L) 12/27/2023 NA 139 12/24/2023 K 6.3 (H) 12/27/2023 K 3.8 12/24/2023 CL 93 (L) 12/27/2023 CL 99 12/24/2023 CO2 27 12/27/2023 CO2 30 12/24/2023 MG 2.1 12/27/2023 MG 1.9 12/24/2023 CALCIUM 8.4 (L) 12/27/2023 CALCIUM 8.9 12/20/2023 CALCCA 9.5 12/27/2023 CALCCA 9.3 11/29/2023 PHOS 5.1 (H) 12/27/2023 PHOS 2.8 12/24/2023 ALKPHOS 103 12/27/2023 ALKPHOS 107 12/19/2023 PTH 707 (H) 10/27/2023 PTH 484 (H) 07/26/2023 PLT 323 01/12/2024 PLT 384 (H) 01/05/2024 MCV 93 01/12/2024 MCV 93 01/05/2024 [id number] 607 10/27/2023 [id number] 688 11/16/2022 VITD 21 (L) 10/27/2023 VITD [...] servings daily - albumin remains low r/t infection - will cont liquacel -have encouraged use of protein powder at home. We discussed adding more HBV protein sources in his diet. His wt has ranged from 86-88 kg since starting HD and his current BMI is at 28. He is well nourished in appearance but suspect with limited mobility he could be losing muscle. Weight/Volume status: fluid gains 1.6--4.9 UFR 0-13 Electrolytes: High k level - often- should consider adding lokelma to manage - discussed high k foods with Na -low indicating fluid on Mg WNL [...] powder at home Cont vitamin and D3 Consider lokelma to manage k level Shelley Eden RD, CD documented in this encounter Plan of Treatment Upcoming Encounters Date Type Department Care Team (Late st Contact Info) Description 12/06/2024 6:45 EST Treatment [facility] [place] [address] [place], [place] [id number] Carlota Jin MD 1 [facility], Level [address] [place] [phone] 12/08/2024 6:45 EST Treatment [facility] [place] [address] [place] [id number] Carlota Jin MD 1 [facility] 2 [place] [phone] 12/11/2024 6:45 EST Treatment [facility] [place] [address] [place], [place] [id number] Carlota Jin MD 1 [facility] 2 [place] [phone] 12/13/2024 6:45 EST Treatment [facility] [place] [address] [place], [place] [id number] Carlota Jin MD 1 [facility], [facility] 2 [place] [phone] 12/15/2024 6:45 EST Treatment [facility] [place] [address] [place], [place] [id number] Carlota Jin MD 1 [facility], [facility] [address] [place] [phone] 12/18/2024 6:45 EST Treatment [facility] [place] [address] [place] [id number] Carlota Jin MD 1 [facility], [facility] 2 [place] [phone] 12/20/2024 6:45 EST Treatment [facility] [place] [address] [place], [place] [id number] Carlota Jin MD 1 [facility], [facility] 2 [place] [phone] 12/22/2024 6:45 EST Treatment [facility] [place] [address] [place], [place] [id number] Carlota Jin MD 1 [facility], [facility] 2 [place] [phone] 12/25/2024 6:45 EST Treatment [facility] [place] [address] [place], [place] [id number] Carlota Jin MD 1 [facility], [facility] 2 [place] [phone] 12/27/2024 6:45 EST Treatment [facility] [place] [address] [place], [place] [id number] Carlota Jin MD 1 [facility], [facility] 2 [place] [phone] 12/29/2024 6:45 EST Treatment [facility] [place] [address] [place], [place] [id number] Carlota Jin MD 1 [facility], [facility] 2 [place] [phone] 01/01/2025 6:45 EDT Treatment [facility] [place] [address] [place], [place] [id number] Carlota Jin MD 1 [facility], [facility] 2 [place] [phone] 01/03/2025 6:45 EDT Treatment [facility] [place] [address] [place], [place] [id number] Carlota Jin MD 1 [facility] [address] [place] [phone] 01/05/2025 6:45 EDT Treatment [facility] [place] [address] [place], [place] [id number] Carlota Jin MD 1 [facility], [facility] 2 [place] [phone] 01/08/2025 6:45 EDT Treatment [facility] [place] [address] [place], [place] [id number] Carlota Jin MD 1 [facility], [facility] 2 [place] [phone] 01/10/2025 6:45 EDT Treatment [facility] [place] [address] [place], [place] [id number] Carlota Jin MD 1 [facility], [facility] [address] [place] [phone] 01/12/2025 6:45 EDT Treatment [facility] [address] [place], [place] [id number] Carlota Jin MD 1 [facility], [facility] [address] [place] [phone] 01/15/2025 6:45 EDT Treatment [facility] [address] [place], [place] [id number] Carlota Jin MD 1 [facility], [facility] 2 [place] [phone] 01/17/2025 6:45 EDT Treatment [facility] [place] [address] [place], [place] [id number] Carlota Jin MD 1 [facility], [facility] 2 [place] [phone] 01/19/2025 6:45 EDT Treatment [facility] [place] [address] [place], [place] [id number] Carlota Jin MD 1 [facility], [facility] 2 [place] [phone] 01/22/2025 6:45 EDT Treatment [facility] [place] [address] [place], [place] [id number] Carlota Jin MD 1 [facility], [facility] 2 [place] [phone] 01/24/2025 6:45 EDT Treatment [facility] [place] [address] [place], [place] [id number] Carlota Jin MD 1 [facility], [facility] 2 [place] [phone] 01/26/2025 6:45 EDT Treatment [facility] [place] [address] [place], [place] [id number] Carlota Jin MD 1 [facility], [facility] 2 [place] [phone] 01/29/2025 6:45 EDT Treatment [facility] [place] [address] [place] [id number] Carlota Jin MD 1 [facility], [facility] 2 [place] [phone] 01/31/2025 6:45 EDT Treatment [facility] [place] [address] [place], [place] [id number] Carlota Jin MD 1 [facility], [facility] 2 [place] [phone] 02/02/2025 6:45 EDT Treatment [facility] [place] [address] [place] [id number] Carlota Jin MD 1 [facility], [address] [phone] 02/05/2025 6:45 EDT Treatment [facility] [place] [address] [place], [place] [id number] Carlota Jin MD 1 [facility], [address] [phone] 02/07/2025 6:45 EDT Treatment [facility] [place] [address] [place] [id number] Carlota Jin MD 1 [facility], [facility] 2 [place] [phone] 02/09/2025 6:45 EDT Treatment [facility] [place] [address] [place], [place] [id number] Carlota Jin MD 1 [facility], [facility] 2 [place] [phone] 02/12/2025 6:45 EDT Treatment [facility] [place] [address] [place], [place] [id number] Carlota Jin MD [address] [phone] 02/14/2025 6:45 EDT Treatment [facility] [place] [address] [place], [place] [id number] Carlota Jin MD [address] [place] [phone] 02/16/2025 6:45 EDT Treatment [facility] [place] [address] [place], [place] [id number] Carlota Jin MD [address] [place] [phone] 02/19/2025 6:45 EDT Treatment [facility] [place] [address] [place], [place] [id number] Carlota Jin MD [address] [place] [phone] 02/21/2025 6:45 EDT Treatment [facility] [place] [address] [place], [place] [id number] Carlota Jin MD [address] [place] [phone] documented as of this encounter Visit Diagnoses Not on filedocumented in this encounter Care Teams Escrow Secretary Relationship Specialty Start Date End Date Ken Greer MD [address] [place] [address] PCP - General 07/07/23 documented as of this encounter
--- OUTSIDE RECORDS SUMMARY | 2024-12-05 12:09 | XMS_ITS | Encounter Summary ---
Author Organization [facility] Address [address] [place] [address] Care Team Providers Care Disease Education Specialist Name Role Phone Ken Greer MD Primary Care Provider [phone] Encounter Details Date Type Department Care Team (Latest Contact Info) Description 01/21/2024 6:45 EDT Treatment [facility] [address] [place], [place] [phone] Carlota Jin MD 1 [facility], Level 2 [place] [address] ESRD (end stage renal disease) ([facility]) (Primary Dx); Anemia of chronic renal failure, unspecified CKD stage; Hypoalbuminemia; Secondary hyperparathyroidism ([facility]); Diabetic foot infection ([facility]) Social History Tobacco [...] - Temperature - - Respiratory Rate 16 01/21/2024 0626 EDT Oxygen Saturation - - Inhaled Oxygen Concentration - - Weight 88.9 kg (195 lb 15.8 oz) 01/21/2024 0624 EDT Height - - Body Mass Index 28.12 12/20/2023 2202 EST documented in this encounter [...] Flowsheet Note - Marcela Cox RN - 01/21/2024 1117 EDT 01/21/24 1100 Post-Hemodialysis Assessment Total Blood Processed (L) 90.55 Liters On Line Clearance: spKt/V 1.58 spKt/V Dialyzer Clearance Lightly streaked Treatment UFR (ml:kg:hr) 7.83 ml:kg:hr Critline refill Not done Fluid Removed (L) 3 L Post-Dialysis Scale Weight 107 kg (235 lb 14.3 oz) Wheelchair Weight 20.8 kg (45 lb 13.7 oz) Prosthesis Weight 0 kg (0 lb) Post-Treatment Weight (kg) 86.2 Treatment Weight Change (kg) 2.7 kg Day Target Weight (kg) 86.4 Post Sitting/Lying BP 122/63 Post Sitting/Lying pulse 61 Temp 35.5 ??C (95.9 ??F) Temp src Temporal Post access assessment AVF/AFG Hemostasis achieved Yes Note 10 minute hold, pt held with blue clamps Orientation Alert and Oriented [...] Contact Info) Description 12/06/2024 6:45 EST Treatment [facility] [address] [place], [place] [id number] Carlota Jin MD [address] [place] [address], [facility] [address] [place] [phone] 12/08/2024 6:45 EST Treatment [facility] [address] [place], [place] [id number] Carlota Jin MD [address] [place] [address] 2 [place] [phone] 12/11/2024 6:45 EST Treatment [facility] [address] [place], [place] [phone] Carlota Jin MD [address] [place] [address] 2 [place] [phone] 12/13/2024 6:45 EST Treatment [facility] [address] [place], [place] [id number] Carlota Jin MD 1 [facility], Level 2 [place] [phone] 12/15/2024 6:45 EST Treatment [facility] [place] [address] [place], [place] [address] Carlota Jin MD 1 [facility], [facility] 2 [place] [phone] 12/18/2024 6:45 EST Treatment [facility] [place] [address] [place], [place] [phone] Carlota Jin MD 1 [facility], [facility] 2 [place] [phone] 12/20/2024 6:45 EST Treatment [facility] [place] [address] [place] [address] Carlota Jin MD 1 [facility], [facility] 2 [place] [phone] 12/22/2024 6:45 EST Treatment [facility] [address] [place], [place] [id number] Carlota Jin MD 1 [facility], [facility] 2 [place] [phone] 12/25/2024 6:45 EST Treatment [facility] [place] [address] [place], [place] [id number] Carlota Jin MD 1 [facility], [facility] 2 [place] [phone] 12/27/2024 6:45 EST Treatment [facility] [place] [address] [place], [place] [phone] Carlota Jin MD 1 [facility], [facility] 2 [place] [phone] 12/29/2024 6:45 EST Treatment [facility] [place] [address] [place], [place] [phone] Carlota Jin MD 1 [facility], [facility] 2 [place] [phone] 01/01/2025 6:45 EDT Treatment [facility] [place] [address] [place] [address] Carlota Jin MD 1 [facility], [facility] 2 [place] [phone] 01/03/2025 6:45 EDT Treatment [facility] [place] [address] [place], [place] [phone] Carlota Jin MD 1 [facility], [facility] 2 [place] [phone] 01/05/2025 6:45 EDT Treatment [facility] [place] [address] [place], [place] [phone] Carlota Jin MD 1 [facility], [facility] 2 [place] [phone] 01/08/2025 6:45 EDT Treatment [facility] [place] [address] [place], [place] [phone] Carlota Jin MD 1 [facility], [facility] 2 [place] [phone] 01/10/2025 6:45 EDT Treatment [facility] [place] [address] [place], [place] [phone] Carlota Jin MD 1 [facility], [facility] 2 [place] [phone] 01/12/2025 6:45 EDT Treatment [facility] [place] [address] [place], [place] [phone] Carlota Jin MD 1 [facility], [facility] 2 [place] [phone] 01/15/2025 6:45 EDT Treatment [facility] [place] [address] [place], [place] [id number] Carlota Jin MD 1 [facility], [facility] 2 [place] [phone] 01/17/2025 6:45 EDT Treatment [facility] [place] [address] [place], [place] [phone] Carlota Jin MD 1 [facility], [facility] 2 [place] [phone] 01/19/2025 6:45 EDT Treatment [facility] [place] [address] [place], [place] [phone] Carlota Jin MD 1 [facility], [facility] 2 [place] [phone] 01/22/2025 6:45 EDT Treatment [facility] [place] [address] [place], [place] [phone] Carlota Jin MD 1 [facility], [facility] 2 [place] [phone] 01/24/2025 6:45 EDT Treatment [facility] [place] [address] [place], [place] [phone] Carlota Jin MD 1 [facility], [facility] 2 [place] [phone] 01/26/2025 6:45 EDT Treatment [facility] [place] [address] [place], [place] [phone] Carlota Jin MD 1 [facility], [facility] 2 [place] [phone] 01/29/2025 6:45 EDT Treatment [facility] [place] [address] [place], [place] [address] Carlota Jin MD 1 [facility], [facility] 2 [place] [phone] 01/31/2025 6:45 EDT Treatment [facility] [place] [address] [place], [place] [phone] Carlota Jin MD 1 [facility], [facility] 2 [place] [phone] 02/02/2025 6:45 EDT Treatment [facility] [place] [address] [place], [place] [address] Carlota Jin MD 1 [facility], [facility] 2 [place] [phone] 02/05/2025 6:45 EDT Treatment [facility] [place] [address] [place], [place] [address] [phone] Carlota Jin MD 1 [facility], [facility] [address] [place] [phone] 02/07/2025 6:45 EDT Treatment [facility] [place] [address] [place], [place] [address] Carlota Jin MD 1 [facility], [address] [phone] 02/09/2025 6:45 EDT Treatment [facility] [place] [address] [place], [place] [phone] Carlota Jin MD 1 [facility], [address] [phone] 02/12/2025 6:45 EDT Treatment [facility] [place] [address] [place], [place] [phone] Carlota Jin MD 1 [facility], [address] [phone] 02/14/2025 6:45 EDT Treatment [facility] [place] [address] [place], [place] [phone] Carlota Jin MD 1 [facility], [facility] [address] [place] [phone] 02/16/2025 6:45 EDT Treatment [facility] [place] [address] [place], [place] [phone] Carlota Jin MD 1 [facility], [facility] 2 [place] [phone] 02/19/2025 6:45 EDT Treatment [facility] [place] [address] [place], [place] [phone] Carlota Jin MD 1 [facility], [facility] [address] [place] [phone] 02/21/2025 6:45 EDT Treatment [facility] [place] [address] [place], [place] [phone] Carlota Jin MD 1 [facility], [facility] [address] [place] [phone] documented as of this encounter Procedures Procedure Name Priority Date/Time Associated Diagnosis Comments VANCOMYCIN, RANDOM Routine 01/21/2024 6:29 EDT ESRD (end stage renal disease) ([facility]) HEMODIALYSIS Routine 01/21/2024 6:26 EDT ESRD (end stage renal disease) ([facility]) documented in this encounter Results * VANCOMYCIN, RANDOM (01/21/2024 6:29 EDT) Vancomycin Random 12.5 See Note ??g/mL 01/21/2024 22:08 EDT [facility] Comment: NOTE: Reference Ranges: Trough: ??10.0 - 20.0 ug/mL Peak: ??25.0 - 50.0 ug/mL Blood VENOUS BLOOD / Unknown Venipuncture / Unknown 01/21/2024 6:29 EDT 01/21/2024 6:48 EDT us Carlota Jin MD CHEMISTRY & BLOOD GAS ORD ERABLES Final Result [facility] [address] [place] [address] documented in this encounter Visit Diagnoses Diagnosis ESRD (end stage renal disease) ([facility])- Primary End stage renal disease Anemia of chronic renal failure, unspecified CKD stage Hypoalbuminemia Other disorders of plasma protein metabolism Secondary hyperparathyroidism ([facility]) Secondary hyperparathyroidism (of renal origin) Diabetic foot infection ([facility]) Type II or unspecified type diabetes mellitus with other specified manifestations, not stated as uncontrolled documented in this encounter Administered Medications Inactive Administered Medications - up to 3 most recent administrations Medication Order MAR Action Action Date Dose Rate Site acetaminophen (TYLENOL) tablet 650 mg 650 mg, oral, EVERY 4 HOURS PRN, Starting on Wed01/21/24 at 0626, Until Wed01/21/24 at 1317, Pain, Routine, DialysisIndications:ESRD (end stage renal disease) ([facility]) Given 01/21/2024 6:56 EDT 650 mg calcium carbonate (TUMS) tablet 500 mg (200 mg elemental calcium) 2 Tablet 2 Tablet, oral, ONCE IN DIALYSIS, 1 dose, On Wed01/21/24 at 0645, Routine, DialysisIndications:ESRD (end stage renal disease) ([facility]),Secondary hyperparathyroidism ([facility]) Given 01/21/2024 6:56 EDT 2 Tablets epoetin ken (EPOGEN) 20,000 unit/2 mL injection 3,000 Units 3,000 Units, intravenous, ONCE IN DIALYSIS, 1 dose, On Wed01/21/24 at 0645, Routine, DialysisIndications:ESRD (end stage renal disease) ([facility]),Anemia of chronic renal failure, unspecified CKD stage Given 01/21/2024 6:55 EDT 3,000 Units ertapenem (INVANZ) 1,000 mg in sodium chloride (PF) 10 mL Syringe 1,000 mg, intravenous, Administer over 5 Minutes, ONCE IN DIALYSIS, 1 dose, On Wed01/21/24 at 0645, Type of Therapy: Definitive, Based on Cultures, Suspected Indication (Select all that apply): Polymicrobial DM foot infection, RoutineIndications:Diabetic foot infection (HCC-CMS) Given 01/21/2024 10:40 EDT 1,000 mg heparin injection 9,000 Units 9,000 Units, intravenous, ONCE IN DIALYSIS, 1 dose, On Wed01/21/24 at 0645, Routine, Dialysis, Now x1 bolus 4500 units to be given at the beginning of dialysis 1500 units/hour to be given over the course of dialysis (9000 units total). Stop 1 hour prior to end of treatment. To be administered per Policy [id number].Indications:ESRD (end stage renal disease) ([facility]) Given 01/21/2024 6:55 EDT 9,000 Units LiquaCel liquid protein liquid 30 mL 30 mL, oral, ONCE IN DIALYSIS, 1 dose, On Wed01/21/24 at 0645, RoutineIndications:ESRD (end stage renal disease) ([facility]),Hypoalbuminemia Given 01/21/2024 6:56 EDT 30 mL vancomycin 850 mg central line syringe 50 mg/mL 850 mg, central line, Administer over 60 Minutes, ONCE IN DIALYSIS, 1 dose, On Wed01/21/24 at 0645, Routine, Suspected Indication (Select all that apply): Moderate or Severe DM foot infectionIndications:Diabetic foot infection (HCC-CMS) Given 01/21/2024 9:40 EDT 850 mg documented in this encounter Orders Dialysis Count Last Ordered Date First Orde red Date HEMODIALYSIS 1 01/21/2024 documented in this encounter Care Teams Disease Education Specialist Relationship Specialty Start Date End Date Ken Greer MD [address] [place] [address] PCP - General 07/07/23 documented as of this encounter
--- OUTSIDE RECORDS SUMMARY | 2024-12-05 12:09 | XMS_ITS | Encounter Summary ---
Author Organization [facility] Address [address] [place] [address] Care Team Providers Care Drug Discovery Informatics Specialist Name Role Phone Ken Greer MD Primary Care Provider [phone] Encounter Details Date Type Department Care Team (Late st Contact Info) Description 01/30/2024 Documentation Visit [facility] [address] [place] [address] [facility] [address] [place] [address] Social History Tobacco Use Types Packs/Day Years [...] Date of Assessment Author No 12/20/2023 14:00 Agnélica Lazo RN * Do you have serious [...] documented in this encounter Progress Notes * Radha Adrian RPH - 01/30/2024 0103 EDT Renal Pharmacist Note: Vancomycin Monitoring Gerson Bruner is a 58 y.o. y.o. male receiving Vancomycin 850 mg IV q dialysis for the treatment of DM foot infection. Pertinent labs: WBC: 10.32 K/cmm (4/3) Vancomycin level pre-dialysis = 12.9 mcg/mL (4/5) Assessment and Plan: 1). Vancomycin level pre-dialysis today is within therapeutic range (10-20 mcg/mL). 2). Recommend continuing with vancomycin 850 IV q dialysis. 3). Treatment therapy to complete after 4/8 vancomycin dose is administered. However, if treatment is extended, Pharmacist will order subsequent level as appropriate per protocol. Pharmacist will continue to follow, Radha Adrian PharmD Renal Pharmacist Secure Chat Pager #[phone] documented in this encounter Plan of Treatment Upcoming Encounters Date Type Department Care Team (Late st Contact Info) Description 12/06/2024 6:45 EST Treatment [facility] [place] [address] [place] [address] Carlota Jin MD 1 [facility] Level [address] [place] [address] 12/08/2024 6:45 EST Treatment [facility] [place] [address] [place], [place] [phone] Carlota Jin MD 1 [facility], [facility] 2 [place] [phone] 12/11/2024 6:45 EST Treatment [facility] [place] [address] [place], [place] [phone] Carlota Jin MD [address] [facility], [facility] 2 [place] [phone] 12/13/2024 6:45 EST Treatment [facility] [address] [place] [address] Carlota Jin MD [address] [place] [address], [facility] 2 [place] [phone] 12/15/2024 6:45 EST Treatment [facility] [address] [place], [place] [phone] Carlota Jin MD [address] [facility], [facility] 2 [place] [phone] 12/18/2024 6:45 EST Treatment [facility] [address] [place], [place] [id number] Carlota Jin MD [address] [facility], [facility] [address] [place] [phone] 12/20/2024 6:45 EST Treatment [facility] [address] [place], [place] [phone] Carlota Jin MD 1 [facility] 2 [place] [phone] 12/22/2024 6:45 EST Treatment [facility] [place] [address] [place], [place] [phone] Carlota Jin MD 1 [facility] [address] [place] [phone] 12/25/2024 6:45 EST Treatment [facility] [place] [address] [place], [place] [id number] Carlota Jin MD [address] [facility], [facility] 2 [place] [phone] 12/27/2024 6:45 EST Treatment [facility] [place] [address] [place], [place] [phone] Carlota Jin MD 1 [facility] 2 [place] [phone] 12/29/2024 6:45 EST Treatment [facility] [place] [address] [place], [place] [phone] Carlota Jin MD [address] [facility], [facility] [address] [place] [phone] 01/01/2025 6:45 EDT Treatment [facility] [place] [address] [place], [place] [id number] Carlota Jin MD 1 [facility] 2 [place] [phone] 01/03/2025 6:45 EDT Treatment [facility] [place] [address] [place], [place] [id number] Carlota Jin MD [address] [facility], [facility] [address] [place] [phone] 01/05/2025 6:45 EDT Treatment [facility] [place] [address] [place], [place] [id number] Carlota Jin MD [address] [facility], [facility] [address] [place] [phone] 01/08/2025 6:45 EDT Treatment [facility] [place] [address] [place] [address] Carlota Jin MD 1 [facility], [address] [phone] 01/10/2025 6:45 EDT Treatment [facility] [place] [address] [place], [place] [id number] Carlota Jin MD [address] [facility], [facility] 2 [place] [phone] 01/12/2025 6:45 EDT Treatment [facility] [place] [address] [place], [place] [id number] Carlota Jin MD [address] [facility], [facility] 2 [place] [phone] 01/15/2025 6:45 EDT Treatment [facility] [place] [address] [place], [place] [phone] Carlota Jin MD [address] [facility], [facility] 2 [place] [phone] 01/17/2025 6:45 EDT Treatment [facility] [place] [address] [place] [address] Carlota Jin MD 1 [facility] [address] [place] [phone] 01/19/2025 6:45 EDT Treatment [facility] [place] [address] [place], [place] [id number] Carlota Jin MD [address] [facility], [facility] 2 [place] [phone] 01/22/2025 6:45 EDT Treatment [facility] [place] [address] [place], [place] [id number] Carlota Jin MD [address] [facility], [facility] [address] [place] [phone] 01/24/2025 6:45 EDT Treatment [facility] [place] [address] [place] [address] Carlota Jin MD 1 [facility] 2 [place] [phone] 01/26/2025 6:45 EDT Treatment [facility] [place] [address] [place], [place] [id number] Carlota Jin MD 1 [facility] 2 [place] [phone] 01/29/2025 6:45 EDT Treatment [facility] [place] [address] [place], [place] [id number] Carlota Jin MD [address] [facility], [facility] 2 [place] [phone] 01/31/2025 6:45 EDT Treatment [facility] [place] [address] [place], [place] [id number] Carlota Jin MD 1 [facility], [facility] 2 [place] [phone] 02/02/2025 6:45 EDT Treatment [facility] [address] [place], [place] [id number] Carlota Jin MD 1 [facility], [facility] 2 [place] [phone] 02/05/2025 6:45 EDT Treatment [facility] [address] [place], [place] [address] Carlota Jin MD [address] [facility], [facility] 2 [place] [phone] 02/07/2025 6:45 EDT Treatment [facility] [address] [place], [place] [id number] Carlota Jin MD [address] [facility], [facility] 2 [place] [phone] 02/09/2025 6:45 EDT Treatment [facility] [place] [address] [place], [place] [id number] Carlota Jin MD 1 [facility], [facility] [address] [place] [phone] 02/12/2025 6:45 EDT Treatment [facility] [place] [address] [place], [place] [id number] Carlota Jin MD 1 [facility], [address] [phone] 02/14/2025 6:45 EDT Treatment [facility] [place] [address] [place], [place] [id number] Carlota Jin MD 1 [facility], [address] [phone] 02/16/2025 6:45 EDT Treatment [facility] [place] [address] [place], [place] [id number] Carlota Jin MD [address] [phone] 02/19/2025 6:45 EDT Treatment [facility] [place] [address] [place], [place] [id number] Carlota Jin MD [address] [phone] 02/21/2025 6:45 EDT Treatment [facility] [place] [address] [place], [place] [id number] Carlota Jin MD [address] [facility], [facility] [address] [place] [phone] documented as of this encounter Visit Diagnoses Not on filedocumented in this encounter Care Teams Drug Discovery Informatics Specialist Relationship Specialty Start Date End Date Ken Greer MD [address] [place] [address] PCP - General 07/07/23 documented as of this encounter
--- OUTSIDE RECORDS SUMMARY | 2024-12-05 12:09 | XMS_ITS | Encounter Summary ---
Author Organization [facility] Address [address] [place] [address] Care Team Providers Care Police Shift Commander Name Role Phone Ken Greer MD Primary Care Provider [phone] Kiel Powers Unavailable Unavailable Encounter Details Date Type Department Care Team (Late st Contact Info) Description 01/28/[address] [facility] Training & Support [address] [place], [place] [id number] Alexa Estrada, [facility] [address] [place] [address] Social History Tobacco Use Types Packs/Day Years [...] Info) Description 12/06/2024 6:[address] [facility] [place] [address] [place], [place] [id number] Carlota Jin MD 1 [facility], [facility] 2 [place] [phone] 12/08/2024 6:[address] [facility] [place] [address] [place], [place] [address] Carlota Jin MD 1 [facility], [facility] 2 [place] [phone] 12/11/2024 6:[address] [facility] [address] [place], [place] [id number] Carlota Jin MD [address] [place] [address], [facility] 2 [place] [phone] 12/13/2024 6:[address] [facility] [place] [address] [place], [place] [id number] Carlota Jin MD 1 [facility], [address] [phone] 12/15/2024 6:[address] [facility] [place] [address] [place] [address] Carlota Jin MD 1 [facility], [address] [phone] 12/18/2024 6:[address] [facility] [place] [address] [place], [place] [id number] Carlota Jin MD 1 [facility], [address] [phone] 12/20/2024 6:[address] [facility] [place] [address] [place], [place] [id number] Carlota Jin MD 1 [facility], [address] [phone] 12/22/2024 6:[address] [facility] [address] [place], [place] [id number] Carlota Jin MD [address] [phone] 12/25/2024 6:[address] [facility] [place] [address] [place], [place] [id number] Carlota Jin MD 1 [facility], [address] [phone] 12/27/2024 6:[address] [facility] [place] [address] [place], [place] [id number] Carlota Jin MD 1 [facility], [facility] 2 [place] [phone] 12/29/2024 6:[address] [facility] [place] [address] [place], [place] [id number] Carlota Jin MD 1 [facility], [facility] 2 [place] [phone] 01/01/2025 6:[address] [facility] [place] [address] [place] [address] Carlota Jin MD 1 [facility], [facility] 2 [place] [phone] 01/03/2025 6:[address] [facility] [place] [address] [place], [place] [id number] Carlota Jin MD 1 [facility], [facility] 2 [place] [phone] 01/05/2025 6:[address] [facility] [place] [address] [place], [place] [id number] Carlota Jin MD 1 [facility], [facility] 2 [place] [phone] 01/08/2025 6:[address] [facility] [place] [address] [place], [place] [address] Carlota Jin MD 1 [facility], [facility] 2 [place] [phone] 01/10/2025 6:[address] [facility] [place] [address] [place], [place] [id number] Carlota Jin MD 1 [facility], [facility] 2 [place] [phone] 01/12/2025 6:[address] [facility] [place] [address] [place], [place] [id number] Carlota Jin MD 1 [facility], [facility] 2 [place] [phone] 01/15/2025 6:[address] [facility] [place] [address] [place], [place] [id number] Carlota Jin MD 1 [facility], [facility] 2 [place] [phone] 01/17/2025 6:[address] [facility] [place] [address] [place], [place] [id number] Carlota Jin MD 1 [facility], [facility] 2 [place] [phone] 01/19/2025 6:[address] [facility] [place] [address] [place], [place] [id number] Carlota Jin MD 1 [facility], [facility] 2 [place] [phone] 01/22/2025 6:[address] [facility] [place] [address] [place], [place] [id number] Carlota Jin MD 1 [facility], [facility] 2 [place] [phone] 01/24/2025 6:[address] [facility] [place] [address] [place], [place] [id number] Carlota Jin MD 1 [facility], [facility] 2 [place] [phone] 01/26/2025 6:[address] [facility] [place] [address] [place], [place] [id number] Carlota Jin MD 1 [facility], [facility] 2 [place] [phone] 01/29/2025 6:[address] [facility] [address] [place] [address] Carlota Jin MD 1 [facility], [facility] 2 [place] [phone] 01/31/2025 6:[address] [facility] [address] [place], [place] [id number] Carlota Jin MD 1 [facility], [facility] 2 [place] [phone] 02/02/2025 6:[address] [facility] [place] [address] [place], [place] [id number] Carlota Jin MD 1 [facility], [facility] 2 [place] [phone] 02/05/2025 6:[address] [facility] [place] [address] [place], [place] [id number] Carlota Jin MD [address] [place] [address], [address] [phone] 02/07/2025 6:[address] [facility] [place] [address] [place], [place] [id number] Carlota Jin MD [address] [place] [address], [address] [phone] 02/09/2025 6:[address] [facility] [place] [address] [place], [place] [id number] Carlota Jin MD [address] [place] [address], [facility] 2 [place] [phone] 02/12/2025 6:[address] [facility] [place] [address] [place], [place] [id number] Carlota Jin MD 1 [facility], [facility] 2 [place] [phone] 02/14/2025 6:[address] [facility] [place] [address] [place], [place] [id number] Carlota Jin MD 1 [facility], [facility] 2 [place] [phone] 02/16/2025 6:[address] [facility] [place] [address] [place], [place] [id number] Carlota Jin MD 1 [facility], [address] [phone] 02/19/2025 6:[address] [facility] [address] [place], [place] [id number] Carlota Jin MD [address] [place] [address], [address] [phone] 02/21/2025 6:[address] [facility] [place] [address] [place], [place] [id number] Carlota Jin MD [address] [place] [phone] documented as of this encounter Visit Diagnoses Not on filedocumented in this encounter Additional Health Concerns Infection Onset Date Last Indicated Resolved Time COVID-19 Comment:Collected @ [facility]. 03/12/2024 03/13/2024 04/01/2024 22: 15 EDT R/O COVID-19 05/30/2024 05/30/2024 05/30/2024 20:5 0 EDT documented as of this encounter Care Teams Police Shift Commander Relationship Specialty Start Date End Date [place] [address] PCP - General 07/07/23 Kiel Powers Registered Private Duty Nurse Nephrology 05/31/24 documented as of this encounter
--- OUTSIDE RECORDS SUMMARY | 2024-12-05 12:09 | XMS_ITS | Encounter Summary ---
Author Organization [facility] Address [address] [place] [address] Care Team Providers Care Consulting Technical Manager Name Role Phone Ken Greer MD Primary Care Provider [phone] Encounter Details Date Type Department Care Team (Late st Contact Info) Description 01/25/2024 Documentation Visit [address] [place] [address] Shelley Eden, RD [address] [place] [address] Social History Tobacco Use Types Packs/Day Years [...] Info) Description 12/06/2024 6:45 EST Treatment [facility] [address] [place], [place] [id number] Carlota Jin MD [address] [place] [address], [facility] 2 [place] [phone] 12/08/2024 6:45 EST Treatment [facility] [address] [place], [place] [id number] Carlota Jin MD [address] [place] [address] 2 [place] [phone] 12/11/2024 6:45 EST Treatment [facility] [address] [place], [place] [id number] Carlota Jin MD [address] [place] [address] 2 [place] [phone] 12/13/2024 6:45 EST Treatment [facility] [address] [place], [place] [id number] Carlota Jin MD 1 [facility], [facility] 2 [place] [phone] 12/15/2024 6:45 EST Treatment [facility] [place] [address] [place], [place] [id number] Carlota Jin MD 1 [facility], [facility] 2 [place] [phone] 12/18/2024 6:45 EST Treatment [facility] [place] [address] [place] [id number] Carlota Jin MD 1 [facility], [facility] 2 [place] [phone] 12/20/2024 6:45 EST Treatment [facility] [place] [address] [place] [id number] Carlota Jin MD 1 [facility], [facility] 2 [place] [phone] 12/22/2024 6:45 EST Treatment [facility] [place] [address] [place], [place] [id number] Carlota Jin MD 1 [facility], [facility] 2 [place] [phone] 12/25/2024 6:45 EST Treatment [facility] [place] [address] [place], [place] [id number] Carlota Jin MD 1 [facility], [facility] 2 [place] [phone] 12/27/2024 6:45 EST Treatment [facility] [place] [address] [place], [place] [id number] Carlota Jin MD 1 [facility], [facility] 2 [place] [phone] 12/29/2024 6:45 EST Treatment [facility] [place] [address] [place], [place] [id number] Carlota Jin MD 1 [facility], [facility] 2 [place] [phone] 01/01/2025 6:45 EDT Treatment [facility] [place] [address] [place], [place] [id number] Carlota Jin MD 1 [facility], [facility] 2 [place] [phone] 01/03/2025 6:45 EDT Treatment [facility] [place] [address] [place], [place] [id number] Carlota Jin MD 1 [facility], [facility] 2 [place] [phone] 01/05/2025 6:45 EDT Treatment [facility] [place] [address] [place], [place] [id number] Carlota Jin MD 1 [facility], [facility] 2 [place] [phone] 01/08/2025 6:45 EDT Treatment [facility] [place] [address] [place], [place] [id number] Carlota Jin MD 1 [facility], [facility] 2 [place] [phone] 01/10/2025 6:45 EDT Treatment [facility] [place] [address] [place], [place] [id number] Carlota Jin MD 1 [facility], [facility] 2 [place] [phone] 01/12/2025 6:45 EDT Treatment [facility] [place] [address] [place] [id number] Carlota Jin MD 1 [facility], [address] [phone] 01/15/2025 6:45 EDT Treatment [facility] [place] [address] [place], [place] [id number] Carlota Jin MD 1 [facility], [address] [phone] 01/17/2025 6:45 EDT Treatment [facility] [place] [address] [place] [id number] Carlota Jin MD 1 [facility], [facility] 2 [place] [phone] 01/19/2025 6:45 EDT Treatment [facility] [place] [address] [place], [place] [id number] Carlota Jin MD 1 [facility], [facility] 2 [place] [phone] 01/22/2025 6:45 EDT Treatment [facility] [place] [address] [place], [place] [id number] Carlota Jin MD 1 [facility], [facility] 2 [place] [phone] 01/24/2025 6:45 EDT Treatment [facility] [place] [address] [place], [place] [id number] Carlota Jin MD 1 [facility], [facility] 2 [place] [phone] 01/26/2025 6:45 EDT Treatment [facility] [place] [address] [place], [place] [id number] Carlota Jin MD 1 [facility], [address] [phone] 01/29/2025 6:45 EDT Treatment [facility] [place] [address] [place], [place] [id number] Carlota Jin MD 1 [facility], [facility] 2 [place] [phone] 01/31/2025 6:45 EDT Treatment [facility] [place] [address] [place], [place] [id number] Carlota Jin MD 1 [facility], [facility] 2 [place] [phone] 02/02/2025 6:45 EDT Treatment [facility] [place] [address] [place], [place] [id number] Carlota Jin MD 1 [facility], [address] [phone] 02/05/2025 6:45 EDT Treatment [facility] [place] [address] [place], [place] [address] [phone] Carlota Jin MD 1 [facility], [address] [phone] 02/07/2025 6:45 EDT Treatment [facility] [place] [address] [place], [place] [id number] Carlota Jin MD 1 [facility], [address] [phone] 02/09/2025 6:45 EDT Treatment [facility] [place] [address] [place] [id number] Carlota Jin MD 1 [facility], [address] [phone] 02/12/2025 6:45 EDT Treatment [facility] [place] [address] [place], [place] [id number] Carlota Jin MD [address] [phone] 02/14/2025 6:45 EDT Treatment [facility] [place] [address] [place], [place] [id number] Carlota Jin MD 1 [facility], [address] [phone] 02/16/2025 6:45 EDT Treatment [facility] [place] [address] [place], [place] [id number] Carlota Jin MD 1 [facility], [facility] 2 [place] [phone] 02/19/2025 6:45 EDT Treatment [facility] [place] [address] [place], [place] [id number] Carlota Jin MD [address] [place] [address], [facility] 2 [place] [phone] 02/21/2025 6:45 EDT Treatment [facility] [place] [address] [place], [place] [id number] Carlota Jin MD [address] [place] [address], [facility] 2 [place] [phone] documented as of this encounter Visit Diagnoses Not on filedocumented in this encounter Care Teams Consulting Technical Manager Relationship Specialty Start Date End Date Ken Greer MD [place] [address] PCP - General 07/07/23 documented as of this encounter
--- OUTSIDE RECORDS SUMMARY | 2024-12-05 12:09 | XMS_ITS | Encounter Summary ---
Author Organization [facility] Address [address] [place] [address] Care Team Providers Care Museum Assistant Name Role Phone Ken Greer MD Primary Care Provider [phone] Encounter Details Date Type Department Care Team (Latest Contact Info) Description 01/30/2024 6:45 EDT Treatment [facility] [address] [place], [place] [id number] ESRD (end stage renal disease) ([facility]) (Primary Dx); Anemia of chronic renal failure, unspecified CKD stage; Hypoalbuminemia; Secondary hyperparathyroidism ([facility]); Diabetic foot infection ([facility]) Social History Tobacco Use Types Packs/Day [...] - Temperature - - Respiratory Rate 16 01/30/2024 0619 EDT Oxygen Saturation - - Inhaled Oxygen Concentration - - Weight 87.9 kg (193 lb 12.6 oz) 01/30/2024 0622 EDT Height - - Body Mass Index 27.81 12/20/2023 2202 EST documented in this encounter [...] Flowsheet Note - Marcela Cox RN - 01/30/2024 1256 EDT 01/30/24 1050 Post-Hemodialysis Assessment Total Blood Processed (L) 90.14 Liters On Line Clearance: spKt/V 1.59 spKt/V Dialyzer Clearance Lightly streaked Treatment UFR (ml:kg:hr) 5.2 ml:kg:hr Critline refill Not done Fluid Removed (L) 2 L Post-Dialysis Scale Weight 107 kg (235 lb 14.3 oz) Wheelchair Weight 20.9 kg (46 lb 1.2 oz) Prosthesis Weight 0 kg (0 lb) Post-Treatment Weight (kg) 86.1 Treatment Weight Change (kg) 1.8 kg Day Target Weight (kg) 86.4 Post Sitting/Lying BP 167/79 Post Sitting/Lying pulse 65 Temp 35.7 ??C (96.3 ??F) Temp src Temporal Post access assessment [...] Contact Info) Description 12/06/2024 6:45 EST Treatment [facility] [address] [place], [place] [phone] Carlota Jin MD 1 [facility] [place] [phone] 12/08/2024 6:45 EST Treatment [facility] [address] [place], [place] [id number] Carlota Jin MD [address] [place] [phone] 12/11/2024 6:45 EST Treatment [facility] [address] [place], [place] [id number] Carlota Jin MD 1 [facility] [place] [phone] 12/13/2024 6:45 EST Treatment [facility] [address] [place], [place] [id number] Carlota Jin MD [address] [place] [phone] 12/15/2024 6:45 EST Treatment [facility] [place] [address] [place], [place] [id number] Carlota Jin MD 1 [facility] [place] [phone] 12/18/2024 6:45 EST Treatment [facility] [place] [address] [place], [place] [id number] Carlota Jin MD 1 [facility] [place] [phone] 12/20/2024 6:45 EST Treatment [facility] [place] [address] [place], [place] [id number] Carlota Jin MD 1 [facility] [place] [phone] 12/22/2024 6:45 EST Treatment [facility] [place] [address] [place], [place] [id number] Carlota Jin MD 1 [facility] [place] [phone] 12/25/2024 6:45 EST Treatment [facility] [place] [address] [place], [place] [id number] Carlota Jni MD 1 [facility] [place] [phone] 12/27/2024 6:45 EST Treatment [facility] [place] [address] [place], [place] [id number] Carlota Jin MD 1 [facility] [place] [phone] 12/29/2024 6:45 EST Treatment [facility] [place] [address] [place], [place] [address] Carlota Jin MD 1 [facility] [place] [phone] 01/01/2025 6:45 EDT Treatment [facility] [place] [address] [place], [place] [id number] Carlota Jin MD 1 [facility] [place] [phone] 01/03/2025 6:45 EDT Treatment [facility] [place] [address] [place], [place] [id number] Carlota Jin MD 1 [facility] [place] [phone] 01/05/2025 6:45 EDT Treatment [facility] [place] [address] [place], [place] [id number] Carlota Jin MD 1 [facility] [place] [phone] 01/08/2025 6:45 EDT Treatment [facility] [place] [address] [place], [place] [address] Carlota Jin MD 1 [facility] [place] [phone] 01/10/2025 6:45 EDT Treatment [facility] [place] [address] [place], [place] [id number] Carlota Jin MD 1 [facility] [place] [phone] 01/12/2025 6:45 EDT Treatment [facility] [place] [address] [place], [place] [id number] Carlota Jin MD [address] [place] [address], [address] [phone] 01/15/2025 6:45 EDT Treatment [facility] [place] [address] [place], [place] [id number] Carlota Jin MD [address] [place] [address], [address] [phone] 01/17/2025 6:45 EDT Treatment [facility] [place] [address] [place], [place] [id number] Carlota Jin MD [address] [place] [address], [facility] [place] [phone] 01/19/2025 6:45 EDT Treatment [facility] [place] [address] [place], [place] [id number] Carlota Jin MD 1 [facility] [place] [phone] 01/22/2025 6:45 EDT Treatment [facility] [place] [address] [place], [place] [id number] Carlota Jin MD 1 [facility] [place] [phone] 01/24/2025 6:45 EDT Treatment [facility] [place] [address] [place], [place] [id number] Carlota Jin MD 1 [facility] [place] [phone] 01/26/2025 6:45 EDT Treatment [facility] [place] [address] [place], [place] [id number] Carlota Jin MD 1 [facility] [place] [phone] 01/29/2025 6:45 EDT Treatment [facility] [place] [address] [place] [address] Carlota Jin MD 1 [facility] [place] [phone] 01/31/2025 6:45 EDT Treatment [facility] [place] [address] [place] [address] Carlota Jin MD 1 [facility] [place] [phone] 02/02/2025 6:45 EDT Treatment [facility] [place] [address] [place], [place] [id number] Carlota Jin MD 1 [facility] [place] [phone] 02/05/2025 6:45 EDT Treatment [facility] [place] [address] [place], [place] [id number] Carlota Jin MD 1 [facility] [place] [phone] 02/07/2025 6:45 EDT Treatment [facility] [place] [address] [place], [place] [id number] Carlota Jin MD 1 [facility] [place] [phone] 02/09/2025 6:45 EDT Treatment [facility] [place] [address] [place], [place] [id number] Carlota Jin MD 1 [facility] [place] [phone] 02/12/2025 6:45 EDT Treatment [facility] [place] [address] [place], [place] [id number] Carlota Jin MD 1 [facility] [place] [phone] 02/14/2025 6:45 EDT Treatment [facility] [place] [address] [place], [place] [id number] Carlota Jin MD 1 [facility] [place] [phone] 02/16/2025 6:45 EDT Treatment [facility] [place] [address] [place], [place] [id number] Carlota Jin MD 1 [facility], [address] [phone] 02/19/2025 6:45 EDT Treatment [facility] [address] [place], [place] [id number] Carlota Jin MD 1 [facility], [address] [phone] 02/21/2025 6:45 EDT Treatment [facility] [address] [place] [address] Carlota Jin MD [address] [phone] documented as of this encounter Procedures Procedure Name Priority Date/Time Associated Diagnosis Comments HEMODIALYSIS Routine 01/30/2024 6:19 EDT ESRD (end stage renal disease) ([facility]) documented in this encounter Visit Diagnoses Diagnosis ESRD (end stage renal disease) ([facility])- Primary End stage renal disease Anemia of chronic renal failure, unspecified CKD stage Hypoalbuminemia Other disorders of plasma protein metabolism Secondary hyperparathyroidism ([facility]) Secondary hyperparathyroidism (of renal origin) Diabetic foot infection ([facility]) Type II or unspecified type diabetes mellitus with other specified manifestations, not stated as uncontrolled documented in this encounter Administered Medications Inactive Administered Medications - up to 3 most recent administrations Medication Order MAR Action Action Date Dose Rate Site calcium carbonate (TUMS) tablet 500 mg (200 mg elemental calcium) 2 Tablet 2 Tablet, oral, ONCE IN DIALYSIS, 1 dose, On 01/30/24 at 0645, Routine, DialysisIndications:ESRD (end stage renal disease) ([facility]),Secondary hyperparathyroidism ([facility]) Given 01/30/2024 6:42 EDT 2 Tablets epoetin ken (EPOGEN) 20,000 unit/2 mL injection 3,000 Units 3,000 Units, intravenous, ONCE IN DIALYSIS, 1 dose, On [place] 01/30/24 at 0645, Routine, DialysisIndications:ESRD (end stage renal disease) ([facility]),Anemia of chronic renal failure, unspecified CKD stage Given 01/30/2024 6:42 EDT 3,000 Units ertapenem (INVANZ) 1,000 mg in sodium chloride (PF) 10 mL Syringe 1,000 mg, intravenous, Administer over 5 Minutes, ONCE IN DIALYSIS, 1 dose, On [place] 01/30/24 at 0645, Type of Therapy: Definitive, Based on Cultures, Suspected Indication (Select all that apply): Polymicrobial DM foot infection, RoutineIndications:Diabetic foot infection ([facility]) Given 01/30/2024 10:16 EDT 1,000 mg heparin injection 9,000 Units 9,000 Units, intravenous, ONCE IN DIALYSIS, 1 dose, On 01/30/24 at 0645, Routine, Dialysis, Now x1 bolus 4500 units to be given at the beginning of dialysis 1500 units/hour to be given over the course of dialysis (9000 units total). Stop 1 hour prior to end of treatment. To be administered per Policy [id number].Indications:ESRD (end stage renal disease) ([facility]) Given 01/30/2024 6:42 EDT 9,000 Units LiquaCel liquid protein liquid 30 mL 30 mL, oral, ONCE IN DIALYSIS, 1 dose, On 01/30/24 at 0645, RoutineIndications:ESRD (end stage renal disease) ([facility]),Hypoalbuminemia Given 01/30/2024 6:42 EDT 30 mL vancomycin 850 mg central line syringe 50 mg/mL 850 mg, central line, Administer over 60 Minutes, ONCE IN DIALYSIS, 1 dose, On 01/30/24 at 0645, Routine, Suspected Indication (Select all that apply): Moderate or Severe DM foot infectionIndications:Diabetic foot infection ([facility]) Given 01/30/2024 9:40 EDT 850 mg documented in this encounter Orders Dialysis Count Last Ordered Date First Orde red Date HEMODIALYSIS 1 01/30/2024 documented in this encounter Care Teams Museum Assistant Relationship Specialty Start Date End Date Ken Greer MD [place] [address] PCP - General 07/07/23 documented as of this encounter
--- OUTSIDE RECORDS SUMMARY | 2024-12-05 12:09 | XMS_ITS | Encounter Summary ---
Author Organization [facility] Address [address] [place] [address] Care Team Providers Care Salt Lifter Name Role Phone Ken Greer MD Primary Care Provider [phone] Kiel Powers Unavailable Unavailable Encounter Details Date Type Department Care Team (Late st Contact Info) Description 01/28/2024 Documentation Visit [facility] Home Dialysis Training & Support [address] [place], [place] [phone] Alexa Estrada, [facility] [address] [place] [address] Social History Tobacco Use Types Packs/Day Years [...] [facility] [place] [address] [place], [place] [phone] Carlota Jin MD 1 [facility][1], [facility] 2 [place] [phone] 12/08/2024 6:45 EST Treatment [facility] [place] [address] [place], [place] [address] Carlota Jin MD 1 [facility][1], [facility] 2 [place] [phone] 12/11/2024 6:45 EST Treatment [facility] [address] [place], [place] [phone] Carlota Jin MD [address] [place] [address], [facility] [address] [place] [phone] 12/13/2024 6:45 EST Treatment [facility] [place] [address] [place], [place] [address] Carlota Jin MD 1 [facility][1], [address] [phone] 12/15/2024 6:45 EST Treatment [facility] [place] [address] [place] [address] Carlota Jin MD 1 [facility][1], [address] [phone] 12/18/2024 6:45 EST Treatment [facility] [place] [address] [place], [place] [id number] Carlota Jin MD 1 [facility][1], [address] [phone] 12/20/2024 6:45 EST Treatment [facility] [place] [address] [place], [place] [id number] Carlota Jin MD 1 [facility][1], [address] [phone] 12/22/2024 6:45 EST Treatment [facility] [address] [place], [place] [id number] Carlota Jin MD [address] [phone] 12/25/2024 6:45 EST Treatment [facility] [place] [address] [place], [place] [id number] Carlota Jin MD 1 [facility][1], [address] [phone] 12/27/2024 6:45 EST Treatment [facility] [place] [address] [place], [place] [id number] Carlota Jin MD 1 [facility][1], [facility] 2 [place] [phone] 12/29/2024 6:45 EST Treatment [facility] [place] [address] [place], [place] [id number] Carlota Jin MD 1 [facility][1], [facility] 2 [place] [phone] 01/01/2025 6:45 EDT Treatment [facility] [place] [address] [place] [address] Carlota Jin MD 1 [facility][1], [facility] 2 [place] [phone] 01/03/2025 6:45 EDT Treatment [facility] [place] [address] [place], [place] [id number] Carlota Jin MD 1 [facility][1], [facility] 2 [place] [phone] 01/05/2025 6:45 EDT Treatment [facility] [place] [address] [place], [place] [phone] Carlota Jin MD 1 [facility][1], [facility] 2 [place] [phone] 01/08/2025 6:45 EDT Treatment [facility] [place] [address] [place], [place] [address] Carlota Jin MD 1 [facility][1], [facility] 2 [place] [phone] 01/10/2025 6:45 EDT Treatment [facility] [place] [address] [place], [place] [id number] Carlota Jin MD 1 [facility][1], [facility] 2 [place] [phone] 01/12/2025 6:45 EDT Treatment [facility] [place] [address] [place], [place] [id number] Carlota Jin MD 1 [facility][1], [facility] 2 [place] [phone] 01/15/2025 6:45 EDT Treatment [facility] [place] [address] [place], [place] [id number] Carlota Jin MD 1 [facility][1], [facility] 2 [place] [phone] 01/17/2025 6:45 EDT Treatment [facility] [place] [address] [place], [place] [id number] Carlota Jin MD 1 [facility][1], [facility] 2 [place] [phone] 01/19/2025 6:45 EDT Treatment [facility] [place] [address] [place], [place] [id number] Carloat Jin MD 1 [facility][1], [facility] 2 [place] [phone] 01/22/2025 6:45 EDT Treatment [facility] [place] [address] [place], [place] [id number] Carlota Jin MD 1 [facility], [facility] 2 [place] [phone] 01/24/2025 6:45 EDT Treatment [facility] [place] [address] [place], [place] [id number] Carlota Jin MD 1 [facility], [facility] 2 [place] [phone] 01/26/2025 6:45 EDT Treatment [facility] [place] [address] [place], [place] [id number] Carlota Jin MD 1 [facility], [facility] 2 [place] [phone] 01/29/2025 6:45 EDT Treatment [facility] [address] [place] [address] Carlota Jin MD 1 [facility], [facility] 2 [place] [phone] 01/31/2025 6:45 EDT Treatment [facility] [address] [place], [place] [id number] Carlota Jin MD 1 [facility], [facility] 2 [place] [phone] 02/02/2025 6:45 EDT Treatment [facility] [place] [address] [place], [place] [id number] Carlota Jin MD 1 [facility][1], [facility] 2 [place] [phone] 02/05/2025 6:45 EDT Treatment [facility] [place] [address] [place], [place] [id number] Carlota Jin MD [address] [place] [address], [address] [phone] 02/07/2025 6:45 EDT Treatment [facility] [place] [address] [place], [place] [id number] Carlota Jin MD [address] [place] [address], [address] [phone] 02/09/2025 6:45 EDT Treatment [facility] [place] [address] [place], [place] [id number] Carlota Jin MD [address] [place] [address], [facility] 2 [place] [phone] 02/12/2025 6:45 EDT Treatment [facility] [place] [address] [place], [place] [id number] Carlota Jin MD 1 [facility][1], [facility] 2 [place] [phone] 02/14/2025 6:45 EDT Treatment [facility] [place] [address] [place], [place] [id number] Carlota Jin MD 1 [facility][1], [facility] 2 [place] [phone] 02/16/2025 6:45 EDT Treatment [facility] [place] [address] [place], [place] [id number] Carlota Jin MD 1 [facility][1], [address] [phone] 02/19/2025 6:45 EDT Treatment [facility] [address] [place], [place] [id number] Carlota Jin MD [address] [place] [address], [address] [phone] 02/21/2025 6:45 EDT Treatment [facility] [place] [address] [place], [place] [phone] Carlota Jin MD [address] [place] [phone] documented as of this encounter Visit Diagnoses Not on filedocumented in this encounter Additional Health Concerns Infection Onset Date Last Indicated Resolved Time COVID-19 Comment:Collected @ [facility]. 03/12/2024 03/13/2024 04/01/2024 22: 15 EDT R/O COVID-19 05/30/2024 05/30/2024 05/30/2024 20:5 0 EDT documented as of this encounter Care Teams Salt Lifter Relationship Specialty Start Date End Date [place] [address] PCP - General 07/07/23 Kiel Powers Tabular Typist Nephrology 05/31/24 documented as of this encounter
--- OUTSIDE RECORDS SUMMARY | 2024-12-05 12:09 | XMS_ITS | Encounter Summary ---
Author Organization [facility] Address [address] [place] [address] Care Team Providers Care Draw Furnace Tender Name Role Phone Ken Greer MD Primary Care Provider [phone] Encounter Details Date Type Department Care Team (Latest Contact Info) Description 01/26/2024 6:45 EDT Treatment [facility] [address] [place], [place] [phone] Carlota Jin MD 1 [facility], Level 2 [place] [address] ESRD (end stage renal disease) ([facility]) (Primary Dx); Anemia of chronic renal failure, unspecified CKD stage; Hypoalbuminemia; Secondary hyperparathyroidism ([facility]); Diabetic foot infection ([facility]) Social History Tobacco Use Types Packs/Day [...] - Temperature - - Respiratory Rate 16 01/26/2024 0625 EDT Oxygen Saturation - - Inhaled Oxygen Concentration - - Weight 88.2 kg (194 lb 7.1 oz) 01/26/2024 0625 E DT Height - - Body Mass Index 27.9 12/20/2023 2202 EST documented in this encounter [...] Flowsheet Note - Marcela Cox RN - 01/26/2024 1312 EDT 01/26/24 1039 Post-Hemodialysis Assessment Total Blood Processed (L) 90.5 Liters On Line Clearance: spKt/V 1.63 spKt/V Dialyzer Clearance Lightly streaked Treatment UFR (ml:kg:hr) 5.8 ml:kg:hr Final Critline Profile (%/hr) -2 Final Profile Profile A Critline refill Negative (H1: 26.1 H2: 26.0) Fluid Removed (L) 2.25 L Post-Dialysis Scale Weight 107.1 kg (236 lb 1.8 oz) Wheelchair Weight 20.9 kg (46 lb 1.2 oz) Prosthesis Weight 0 kg (0 lb) Post-Treatment Weight (kg) 86.2 Treatment Weight Change (kg) 2 kg Day Target Weight (kg) 86.5 Post Sitting/Lying BP 151/81 Post Sitting/Lying pulse 70 Temp 36.6 ??C (97.9 ??F) Temp src [...] Response to Treatment Tolerated tx well. Removed 2.2L UF goal without difficulty. Comments No issues during tx, no concerns voiced post tx. * Dialysis Rounding - Skye Gomez NP - 01/26/2024 0681 EDT Dialysis Provider's Routine Assessment The visit was conducted via telehealth (audio/video) between the [facility] [facility] and the provider from their [...] care. The location of the patient : [place] [facility]; Patient location state: Visit Location State: [place] The location of the provider: Office; Provider location state: Visit Location State: [place] Gerson Bruner was seen and examined as appropriate during Dialysis. Pertinent lab results were reviewed. Changes since last visit: None Changes to current prescriptions/orders: None Pt resting comfortably on dialysis Skye Gomez NP documented in this encounter Plan of Treatment Upcoming Encounters Date Type Department Care Team (Late st Contact Info) Description 12/06/2024 6:45 EST Treatment [facility] [place] [address] [place], [place] [phone] Carlota Jin MD 1 [facility], [address] [phone] 12/08/2024 6:45 EST Treatment [facility] [place] [address] [place], [place] [phone] Carlota Jin MD [address] [place] [phone] 12/11/2024 6:45 EST Treatment [facility] [place] [address] [place], [place] [phone] Carlota Jin MD [address] [place] [phone] 12/13/2024 6:45 EST Treatment [facility] [place] [address] [place], [place] [phone] Carlota Jin MD [address] [place] [phone] 12/15/2024 6:45 EST Treatment [facility] [place] [address] [place], [place] [phone] Carlota Jin MD [address] [place] [phone] 12/18/2024 6:45 EST Treatment [facility] [place] [address] [place], [place] [phone] Carlota Jin MD 1 [facility], [facility] 2 [place] [phone] 12/20/2024 6:45 EST Treatment [facility] [place] [address] [place], [place] [phone] Carlota Jin MD 1 [facility], [facility] 2 [place] [phone] 12/22/2024 6:45 EST Treatment [facility] [address] [place], [place] [phone] Carlota Jin MD 1 [facility], [facility] 2 [place] [phone] 12/25/2024 6:45 EST Treatment [facility] [address] [place], [place] [phone] Carlota Jin MD 1 [facility], [facility] 2 [place] [phone] 12/27/2024 6:45 EST Treatment [facility] [address] [place], [place] [phone] Carlota Jin MD 1 [facility], [facility] 2 [place] [phone] 12/29/2024 6:45 EST Treatment [facility] [address] [place], [place] [phone] Carlota Jin MD 1 [facility], [facility] 2 [place] [phone] 01/01/2025 6:45 EDT Treatment [facility] [place] [address] [place], [place] [address] Carlota Jin MD 1 [facility], [facility] 2 [place] [phone] 01/03/2025 6:45 EDT Treatment [facility] [place] [address] [place], [place] [phone] Carlota Jin MD 1 [facility], [facility] 2 [place] [phone] 01/05/2025 6:45 EDT Treatment [facility] [place] [address] [place], [place] [phone] Carlota Jin MD 1 [facility], [facility] 2 [place] [phone] 01/08/2025 6:45 EDT Treatment [facility] [address] [place], [place] [phone] Carlota Jin MD 1 [facility], [facility] 2 [place] [phone] 01/10/2025 6:45 EDT Treatment [facility] [place] [address] [place], [place] [phone] Carlota Jin MD 1 [facility], [facility] 2 [place] [phone] 01/12/2025 6:45 EDT Treatment [facility] [place] [address] [place], [place] [phone] Carlota Jin MD 1 [facility], [facility] 2 [place] [phone] 01/15/2025 6:45 EDT Treatment [facility] [place] [address] [place], [place] [phone] Carlota Jin MD 1 [facility], [facility] 2 [place] [phone] 01/17/2025 6:45 EDT Treatment [facility] [place] [address] [place], [place] [phone] Carlota Jin MD 1 [facility], [address] [phone] 01/19/2025 6:45 EDT Treatment [facility] [place] [address] [place], [place] [address] Carlota Jin MD 1 [facility], [facility] 2 [place] [phone] 01/22/2025 6:45 EDT Treatment [facility] [place] [address] [place], [place] [phone] Carlota Jin MD 1 [facility], [facility] 2 [place] [phone] 01/24/2025 6:45 EDT Treatment [facility] [place] [address] [place], [place] [phone] Carlota Jin MD 1 [facility], [facility] 2 [place] [phone] 01/26/2025 6:45 EDT Treatment [facility] [place] [address] [place], [place] [phone] Carlota Jin MD 1 [facility], [facility] 2 [place] [phone] 01/29/2025 6:45 EDT Treatment [facility] [place] [address] [place], [place] [phone] Carlota Jin MD 1 [facility], [address] [phone] 01/31/2025 6:45 EDT Treatment [facility] [place] [address] [place], [place] [phone] Carlota Jin MD 1 [facility], [address] [phone] 02/02/2025 6:45 EDT Treatment [facility] [place] [address] [place], [place] [phone] Carlota Jin MD 1 [facility], [facility] 2 [place] [phone] 02/05/2025 6:45 EDT Treatment [facility] [place] [address] [place], [place] [phone] Carlota Jin MD 1 [facility], [facility] 2 [place] [phone] 02/07/2025 6:45 EDT Treatment [facility] [place] [address] [place], [place] [phone] Carlota Jin MD 1 [facility], [facility] 2 [place] [phone] 02/09/2025 6:45 EDT Treatment [facility] [place] [address] [place], [place] [phone] Carlota Jin MD 1 [facility], [facility] 2 [place] [phone] 02/12/2025 6:45 EDT Treatment [facility] [place] [address] [place] [address] Carlota Jin MD [address] [place] [address], [address] [phone] 02/14/2025 6:45 EDT Treatment [facility] [place] [address] [place], [place] [phone] Carlota Jin MD [address] [place] [address], [facility] 2 [place] [phone] 02/16/2025 6:45 EDT Treatment [facility] [place] [address] [place], [place] [phone] Carlota Jin MD 1 [facility], [facility] 2 [place] [phone] 02/19/2025 6:45 EDT Treatment [facility] [place] [address] [place] [phone] Carlota Jin MD 1 [facility], Level 2 [place] [phone] 02/21/2025 6:45 EDT Treatment [facility] [place] [address] [place], [place] [phone] Carlota Jin MD 1 [facility], Level [address] [place] [phone] documented as of this encounter Procedures Procedure Name Priority Date/Time Associated Diagnosis Comments COMPLETE BLOOD COUNT Routine 01/26/2024 6:30 EDT ESRD (end stage renal disease) ([facility]) HEMODIALYSIS Routine 01/26/2024 6:25 EDT ESRD (end stage renal disease) ([facility]) documented in this encounter Results * (ABNORMAL) COMPLETE BLOOD COUNT (01/26/2024 6:30 EDT) WBC 10.32 4.00 - 10.40 K/cmm 01/26/2024 22:17 [facility] RBC 2.79(L) 4.36 - 5.78 M/cmm 01/26/2024 22:17 [facility] Hemoglobin 8.3(L) 13.8 - 17.3 g/dL 01/26/2024 22:17 [facility] HCT 25.7(L) 39.5 - 50.2 % 01/26/2024 22:17 [facility] MCV 92 81 - 95 fL 01/26/2024 22:17 [facility] MCH 29.7 27.6 - 33.0 pg 01/26/2024 22:17 [facility] MCHC 32.3(L) 32.8 - 36.4 g/dL 01/26/2024 22:17 [facility] RDW-CV 14.1 <14.2 % 01/26/2024 22:17 EDT [facility] RDW-SD 47.8(H) <46.0 fl 01/26/2024 22:17 EDT [facility] PLT 383(H) 141 - 377 K/cmm 01/26/2024 22:17 EDT [facility] MPV 11.5 9.5 - 12.7 fL 01/26/2024 22:17 EDT [facility] Blood VENOUS BLOOD / Unknown Venipuncture / Unknown 01/26/2024 6:30 EDT 01/26/2024 6:30 EDT us Skye Gomez NP HEMATOLOGY & PF4 ORDERABLES Final Result Performing Organization Address City/State/[facility] Co de Phone Number [facility] [address] [place] [phone] documented in this encounter Visit Diagnoses Diagnosis ESRD (end stage renal disease) ([facility] Primary End stage renal disease Anemia of chronic renal failure, unspecified CKD stage Hypoalbuminemia Other disorders of plasma protein metabolism Secondary hyperparathyroidism ([facility]) Secondary hyperparathyroidism (of renal origin) Diabetic foot infection ([facility]) Type II or unspecified type diabetes mellitus with other specified manifestations, not stated as uncontrolled documented in this encounter Administered Medications Inactive Administered Medications - up to 3 most recent administrations Medication Order MAR Action Action Date Dose Rate Site calcium carbonate (TUMS) tablet 500 mg (200 mg elemental calcium) 2 Tablet 2 Tablet, oral, ONCE IN DIALYSIS, 1 dose, On Wed01/26/24 at 0645, Routine, DialysisIndications:ESRD (end stage renal disease) ([facility]),Secondary hyperparathyroidism ([facility]) Given 01/26/2024 6:56 EDT 2 Tablets epoetin ken (EPOGEN) 20,000 unit/2 mL injection 3,000 Units 3,000 Units, intravenous, ONCE IN DIALYSIS, 1 dose, On Wed01/26/24 at 0645, Routine, DialysisIndications:ESRD (end stage renal disease) ([facility]),Anemia of chronic renal failure, unspecified CKD stage Given 01/26/2024 6:56 EDT 3,000 Units ertapenem (INVANZ) 1,000 mg in sodium chloride (PF) 10 mL Syringe 1,000 mg, intravenous, Administer over 5 Minutes, ONCE IN DIALYSIS, 1 dose, On Wed01/26/24 at 0645, Type of Therapy: Definitive, Based on Cultures, Suspected Indication (Select all that apply): Polymicrobial DM foot infection, RoutineIndications:Diabetic foot infection ([facility]) Given 01/26/2024 10:42 EDT 1,000 mg heparin injection 9,000 Units 9,000 Units, intravenous, ONCE IN DIALYSIS, 1 dose, On Wed01/26/24 at 0645, Routine, Dialysis, Now x1 bolus 4500 units to be given at the beginning of dialysis 1500 units/hour to be given over the course of dialysis (9000 units total). Stop 1 hour prior to end of treatment. To be administered per Policy [id number].Indications:ESRD (end stage renal disease) ([facility]) Given 01/26/2024 6:56 EDT 9,000 Units LiquaCel liquid protein liquid 30 mL 30 mL, oral, ONCE IN DIALYSIS, 1 dose, On Wed01/26/24 at 0645, RoutineIndications:ESRD (end stage renal disease) ([facility]),Hypoalbuminemia Given 01/26/2024 6:56 EDT 30 mL vancomycin 850 mg central line syringe 50 mg/mL 850 mg, central line, Administer over 60 Minutes, ONCE IN DIALYSIS, 1 dose, On Wed01/26/24 at 0645, Routine, Suspected Indication (Select all that apply): Moderate or Severe DM foot infectionIndications:Diabetic foot infection ([facility]) Given 01/26/2024 9:40 EDT 850 mg documented in this encounter Orders Dialysis Count Last Ordered Date First Orde red Date HEMODIALYSIS 1 01/26/2024 documented in this encounter Care Teams Draw Furnace Tender Relationship Specialty Start Date End Date Ken Greer MD [address] [place] [address] PCP - General 07/07/23 documented as of this encounter
--- OUTSIDE RECORDS SUMMARY | 2024-12-05 12:09 | XMS_ITS | Encounter Summary ---
Author Organization [facility] Address [address] [place] [address] Care Team Providers Care Pizza Maker Name Role Phone Ken Greer MD Primary Care Provider [phone] Encounter Details Date Type Department Care Team (Late st Contact Info) Description 01/28/2024 Documentation Visit [address] [place], [place] [phone] Melissa Crespo, RN Social History Tobacco Use [...] Description 12/06/2024 6:45 EST Treatment [facility] [place] [address] [place], [place] [phone] Carlota Jin MD 1 [facility], [facility] 2 [place] [phone] 12/08/2024 6:45 EST Treatment [facility] [address] [place], [place] [phone] Carlota Jin MD 1 [facility] 2 [place] [phone] 12/11/2024 6:45 EST Treatment [facility] [place] [address] [place], [place] [phone] Carlota Jin MD 1 [facility], [facility] 2 [place] [phone] 12/13/2024 6:45 EST Treatment [facility] [address] [place], [place] [phone] Carlota Jin MD 1 [facility], [facility] 2 [place] [phone] 12/15/2024 6:45 EST Treatment [facility] [address] [place], [place] [phone] Carlota Jin MD 1 [facility], [facility] 2 [place] [phone] 12/18/2024 6:45 EST Treatment [facility] [address] [place], [place] [phone] Carlota Jin MD 1 [facility], [facility] 2 [place] [phone] 12/20/2024 6:45 EST Treatment [facility] [address] [place], [place] [phone] Carlota Jin MD 1 [facility], [facility] 2 [place] [phone] 12/22/2024 6:45 EST Treatment [facility] [address] [place], [place] [phone] Carlota Jin MD 1 [facility], [facility] 2 [place] [phone] 12/25/2024 6:45 EST Treatment [facility] [address] [place], [place] [phone] Carlota Jin MD 1 [facility], [facility] 2 [place] [phone] 12/27/2024 6:45 EST Treatment [facility] [address] [place], [place] [phone] Carlota Jin MD 1 [facility], [facility] 2 [place] [phone] 12/29/2024 6:45 EST Treatment [facility] [address] [place], [place] [phone] Carlota Jin MD 1 [facility], [address] [phone] 01/01/2025 6:45 EDT Treatment [facility] [address] [place], [place] [phone] Carlota Jin MD 1 [facility], [address] [phone] 01/03/2025 6:45 EDT Treatment [facility] [address] [place], [place] [phone] Carlota Jin MD 1 [facility], [address] [phone] 01/05/2025 6:45 EDT Treatment [facility] [address] [place], [place] [phone] Carlota Jin MD [address] [place] [address], [facility] 2 [place] [phone] 01/08/2025 6:45 EDT Treatment [facility] [address] [place], [place] [phone] Carlota Jin MD 1 [facility] Level 2 [place] [phone] 01/10/2025 6:45 EDT Treatment [facility] [address] [place], [place] [address] Carlota Jin MD 1 [facility], [facility] 2 [place] [phone] 01/12/2025 6:45 EDT Treatment [facility] [address] [place], [place] [phone] Carlota Jin MD 1 [facility], [facility] 2 [place] [phone] 01/15/2025 6:45 EDT Treatment [facility] [address] [place], [place] [phone] Carlota Jin MD 1 [facility], [facility] 2 [place] [phone] 01/17/2025 6:45 EDT [facility] [address] [place], [place] [phone] Carlota Jin MD 1 [facility], [facility] 2 [place] [phone] 01/19/2025 6:45 EDT Treatment [facility] [address] [place], [place] [phone] Carlota Jin MD 1 [facility], [facility] 2 [place] [phone] 01/22/2025 6:45 EDT Treatment [facility] [address] [place], [place] [phone] Carlota Jin MD 1 [facility], [facility] 2 [place] [phone] 01/24/2025 6:45 EDT Treatment [facility] [address] [place], [place] [phone] Carlota Jin MD 1 [facility], [facility] 2 [place] [phone] 01/26/2025 6:45 EDT Treatment [facility] [address] [place], [place] [phone] Carlota Jin MD 1 [facility], [facility] 2 [place] [phone] 01/29/2025 6:45 EDT Treatment [facility] [address] [place], [place] [phone] Carlota Jin MD 1 [facility], [facility] 2 [place] [phone] 01/31/2025 6:45 EDT Treatment [facility] [address] [place], [place] [phone] Carlota Jin MD 1 [facility], [facility] 2 [place] [phone] 02/02/2025 6:45 EDT Treatment [facility] [address] [place], [place] [phone] Carlota Jin MD 1 [facility], [facility] 2 [place] [phone] 02/05/2025 6:45 EDT Treatment [facility] [address] [place], [place] [phone] Carlota Jin MD 1 [facility], [facility] 2 [place] [phone] 02/07/2025 6:45 EDT Treatment [facility] [address] [place] [address] Carlota Jin MD 1 [facility], [address] [phone] 02/09/2025 6:45 EDT Treatment [facility] [address] [place], [place] [phone] Carlota Jin MD 1 [facility], [address] [phone] 02/12/2025 6:45 EDT Treatment [facility] [address] [place] [address] Carlota Jin MD 1 [facility], [facility] 2 [place] [phone] 02/14/2025 6:45 EDT Treatment [facility] [address] [place], [place] [phone] Carlota Jin MD 1 [facility], [facility] 2 [place] [phone] 02/16/2025 6:45 EDT Treatment [facility] [address] [place], [place] [phone] Carlota Jin MD 1 [facility], [facility] 2 [place] [phone] 02/19/2025 6:45 EDT [facility] [address] [place], [place] [phone] Carlota Jin MD [address] [place] [address], [facility] 2 [place] [phone] 02/21/2025 6:45 EDT Treatment [facility] [address] [place], [place] [phone] Carlota Jin MD [address] [place] [address], [facility] 2 [place] [phone] documented as of this encounter Visit Diagnoses Not on filedocumented in this encounter Care Teams Pizza Maker Relationship Specialty Start Date End Date [place] [address] PCP - General 07/07/23 documented as of this encounter
--- OUTSIDE RECORDS SUMMARY | 2024-12-05 12:09 | XMS_ITS | Encounter Summary ---
Author Organization [facility] Address [address] [place] [address] Care Team Providers Care Commercial Construction Superintendent Name Role Phone Ken Greer MD Primary Care Provider [phone] Encounter Details Date Type Department Care Team (Latest Contact Info) Description 01/19/2024 6:45 EDT Treatment [facility] [address] [place], [place] [id number] Carlota Jin MD [facility], Level 2 [place] [phone] ESRD (end stage renal disease) ([facility]) (Primary Dx); Anemia of chronic renal failure, unspecified CKD stage; Hypoalbuminemia; Secondary hyperparathyroidism ([facility]); Diabetic foot infection ([facility]) Social History Tobacco Use [...] - Temperature - - Respiratory Rate 16 01/19/2024 0623 EDT Oxygen Saturation - - Inhaled Oxygen Concentration - - Weight 88 kg (194 lb 0.1 oz) 01/19/2024 0626 EDT Height - - Body Mass [...] documented in this encounter Progress Notes * Sunita Wiseman, [facility] - 01/19/2024 0645 EDT Renal Pharmacist Note: Vancomycin Monitoring 58 y/o male receiving vancomycin 850 mg IV q dialysis for the treatment of a DM foot infection. Vancomycin level pre-dialysis on 01/06 = 12.5 mcg/mL. Assessment and Plan: 1). Vancomycin level pre-dialysis is within therapeutic range (10-20 mcg/mL). 2). Continuing with vancomycin 850 mg IV q dialysis. 3). Pharmacy will order subsequent level when appropriate per protocol. Pharmacy will continue to follow. If any questions during evenings or weekends, [phone]. Thank you, Sunita Wiseman, PharmD Pager #[phone] documented in this encounter Miscellaneous Notes * Flowsheet Note - Marcela Cox RN - 01/19/2024 9199 EDT 01/19/24 1042 Post-Hemodialysis Assessment Total Blood Processed (L) 89.95 Liters On Line Clearance: spKt/V 1.59 spKt/V Dialyzer Clearance Lightly streaked Treatment UFR (ml:kg:hr) 4.26 ml:kg:hr Critline refill Not done Fluid Removed (L) 2 L Post-Dialysis Scale Weight 107.3 kg (236 lb 8.9 oz) Wheelchair Weight 20.8 kg (45 lb 13.7 oz) Prosthesis Weight 0 kg (0 lb) Post-Treatment Weight (kg) 86.5 Treatment Weight Change (kg) 1.5 kg Day Target Weight (kg) 86.5 Post Sitting/Lying BP 155/86 Post Sitting/Lying pulse 65 Temp 36.5 ??C (97.7 ??F) Temp src Temporal Minutes Short -244 Post access assessment AVF/AFG Hemostasis achieved Yes Note 10 min hold w/ clamps Orientation Alert and Oriented x3 Yes Time Yes Place Yes Person Yes Cooperative Yes Disoriented No Discharge Ambulation Methods Departs via w/c;With patient transport Wrap up items Patient Response to Treatment Tolerated tx well. Removed 2L UF goal without difficulty. Comments no concerns voiced post tx. documented in this encounter Plan of Treatment Upcoming Encounters Date Type Department Care Team (Late st Contact Info) Description 12/06/2024 6:[address] [facility] [address] [place] [phone] Carlota Jin MD 1 [facility], Level [address] [place] [phone] 12/08/2024 6:[address] [facility] [place] [address] [place], [place] [address] Carlota Jin MD 1 [facility], [facility] 2 [place] [phone] 12/11/2024 6:[address] [facility] [place] [address] [place] [address] Carlota Jin MD 1 [facility], [facility] 2 [place] [phone] 12/13/2024 6:[address] [facility] [place] [address] [place], [place] [phone] Carlota Jin MD [facility], [address] [phone] 12/15/2024 6:[address] [facility] [place] [address] [place], [place] [id number] Carlota Jin MD 1 [facility], [address] [phone] 12/18/2024 6:[address] [facility] [place] [address] [place], [place] [phone] Carlota Jin MD 1 [facility], [address] [phone] 12/20/2024 6:[address] [facility] [place] [address] [place], [place] [phone] Carlota Jin MD 1 [facility], [facility] 2 [place] [phone] 12/22/2024 6:[address] [facility] [place] [address] [place], [place] [id number] Carlota Jin MD 1 [facility], [facility] 2 [place] [phone] 12/25/2024 6:[address] [facility] [place] [address] [place], [place] [phone] Carlota Jin MD 1 [facility], [facility] 2 [place] [phone] 12/27/2024 6:[address] [facility] [place] [address] [place] [address] Carlota Jin MD 1 [facility], [facility] 2 [place] [phone] 12/29/2024 6:[address] [facility] [place] [address] [place] [address] Carlota Jin MD 1 [facility], [facility] 2 [place] [phone] 01/01/2025 6:[address] [facility] [place] [address] [place], [place] [phone] Carlota Jin MD 1 [facility], [facility] 2 [place] [phone] 01/03/2025 6:[address] [facility] [place] [address] [place], [place] [address] Carlota Jin MD 1 [facility], [facility] 2 [place] [phone] 01/05/2025 6:[address] [facility] [place] [address] [place], [place] [phone] Carlota Jin MD 1 [facility], [address] [phone] 01/08/2025 6:[address] [facility] [place] [address] [place], [place] [phone] Carlota Jin MD 1 [facility], [address] [phone] 01/10/2025 6:[address] [facility] [place] [address] [place], [place] [phone] Carlota Jin MD [address] [phone] 01/12/2025 6:[address] [facility] [place] [address] [place], [place] [phone] Carlota Jin MD [address] [phone] 01/15/2025 6:[address] [facility] [place] [address] [place], [place] [id number] Carlota Jin MD 1 [facility], [facility] 2 [place] [phone] 01/17/2025 6:[address] [facility] [place] [address] [place], [place] [phone] Carlota Jin MD 1 [facility], [facility] 2 [place] [phone] 01/19/2025 6:[address] [facility] [place] [address] [place], [place] [phone] Carlota Jin MD 1 [facility], [facility] 2 [place] [phone] 01/22/2025 6:[address] [facility] [place] [address] [place], [place] [phone] Carlota Jin MD 1 [facility], [facility] 2 [place] [phone] 01/24/2025 6:[address] [facility] [place] [address] [place] [address] Carlota Jin MD 1 [facility], [facility] 2 [place] [phone] 01/26/2025 6:[address] [facility] [place] [address] [place], [place] [phone] Carlota Jin MD 1 [facility], [facility] 2 [place] [phone] 01/29/2025 6:[address] [facility] [place] [address] [place], [place] [phone] Carlota Jin MD 1 [facility], [address] [phone] 01/31/2025 6:[address] [facility] [place] [address] [place], [place] [phone] Carlota Jin MD 1 [facility], [address] [phone] 02/02/2025 6:[address] [facility] [place] [address] [place], [place] [phone] Carlota Jin MD 1 [facility], [address] [phone] 02/05/2025 6:[address] [facility] [place] [address] [place], [place] [phone] Carlota Jin MD 1 [facility], [address] [phone] 02/07/2025 6:[address] [facility] [place] [address] [place], [place] [phone] Carlota Jin MD [address] [place] [address], [address] [phone] 02/09/2025 6:[address] [facility] [place] [address] [place], [place] [phone] Carlota Jin MD 1 [facility], Level [address] [place] [phone] 02/12/2025 6:[address] [facility] [place] [address] [place], [place] [address] Carlota Jin MD 1 [facility], [facility] 2 [place] [phone] 02/14/2025 6:[address] [facility] [place] [address] [place], [place] [phone] Carlota Jin MD 1 [facility], [facility] 2 [place] [phone] 02/16/2025 6:[address] [facility] [place] [address] [place], [place] [address] Carlota Jin MD 1 [facility], [facility] 2 [place] [phone] 02/19/2025 6:[address] [facility] [address] [place], [place] [phone] Carlota Jin MD 1 [facility], [facility] 2 [place] [phone] 02/21/2025 6:[address] [facility] [address] [place], [place] [address] Carlota Jin MD 1 [facility], [facility] 2 [place] [phone] documented as of this encounter Procedures Procedure Name Priority Date/Time Associated Diagnosis Comments COMPLETE BLOOD COUNT Routine 01/19/2024 6:30 EDT ESRD (end stage renal disease) ([facility]) HEMODIALYSIS Routine 01/19/2024 6:23 EDT ESRD (end stage renal disease) ([facility]) documented in this encounter Results * (ABNORMAL) COMPLETE BLOOD COUNT (01/19/2024 6:30 EDT) WBC 9.58 4.00 - 10.40 K/cmm 01/19/2024 23:01 [facility] RBC 2.74(L) 4.36 - 5.78 M/cmm 01/19/2024 23:01 [facility] Hemoglobin 8.4(L) 13.8 - 17.3 g/dL 01/19/2024 23:01 [facility] HCT 25.1(L) 39.5 - 50.2 % 01/19/2024 23:01 [facility] MCV 92 81 - 95 fL 01/19/2024 23:01 [facility] MCH 30.7 27.6 - 33.0 pg 01/19/2024 23:01 [facility] MCHC 33.5 32.8 - 36.4 g/dL 01/19/2024 23:01 [facility] RDW-CV 14.2(H) <14.2 % 01/19/2024 23:01 [facility] RDW-SD 47.1(H) <46.0 fl 01/19/2024 23:01 [facility] PLT 382(H) 141 - 377 K/cmm 01/19/2024 23:01 [facility] MPV 11.3 9.5 - 12.7 fL 01/19/2024 23:01 [facility] Blood VENOUS BLOOD / Unknown Venipuncture / Unknown 01/19/2024 6:30 EDT 01/19/2024 6:30 EDT us Skye Gomez NP HEMATOLOGY & PF4 ORDERABLES Final Result [facility] [address] [place], [place] [phone] documented in this encounter Visit Diagnoses Diagnosis ESRD (end stage renal disease) ([facility])- Primary End stage renal disease Anemia of chronic renal failure, unspecified CKD stage Hypoalbuminemia Other disorders of plasma protein metabolism Secondary hyperparathyroidism (HCC-CMS) Secondary hyperparathyroidism (of renal origin) Diabetic foot infection ([facility]) Type II or unspecified type diabetes mellitus with other specified manifestations, not stated as uncontrolled documented in this encounter Administered Medications Inactive Administered Medications - up to 3 most recent administrations Medication Order MAR Action Action Date Dose Rate Site calcium carbonate (TUMS) tablet 500 mg (200 mg elemental calcium) 2 Tablet 2 Tablet, oral, ONCE IN DIALYSIS, 1 dose, On Wed01/19/24 at 0645, Routine, DialysisIndications:ESRD (end stage renal disease) ([facility]),Secondary hyperparathyroidism ([facility]) Given 01/19/2024 6:43 EDT 2 Tablets epoetin ken (EPOGEN) 20,000 unit/2 mL injection 3,000 Units 3,000 Units, intravenous, ONCE IN DIALYSIS, 1 dose, On Wed01/19/24 at 0645, Routine, DialysisIndications:ESRD (end stage renal disease) ([facility]),Anemia of chronic renal failure, unspecified CKD stage Given 01/19/2024 6:43 EDT 3,000 Units ertapenem (INVANZ) 1,000 mg in sodium chloride (PF) 10 mL Syringe 1,000 mg, intravenous, Administer over 5 Minutes, ONCE IN DIALYSIS, 1 dose, On Wed01/19/24 at 0645, Type of Therapy: Definitive, Based on Cultures, Suspected Indication (Select all that apply): Polymicrobial DM foot infection, RoutineIndications:Diabetic foot infection (HCC-CMS) Given 01/19/2024 10:40 EDT 1,000 mg heparin injection 9,000 Units 9,000 Units, intravenous, ONCE IN DIALYSIS, 1 dose, On Wed01/19/24 at 0645, Routine, Dialysis, Now x1 bolus 4500 units to be given at the beginning of dialysis 1500 units/hour to be given over the course of dialysis (9000 units total). Stop 1 hour prior to end of treatment. To be administered per Policy [id number].Indications:ESRD (end stage renal disease) ([facility]) Given 01/19/2024 6:43 EDT 9,000 Units LiquaCel liquid protein liquid 30 mL 30 mL, oral, ONCE IN DIALYSIS, 1 dose, On Wed01/19/24 at 0645, RoutineIndications:ESRD (end stage renal disease) ([facility]),Hypoalbuminemia Given 01/19/2024 6:44 EDT 30 mL vancomycin 850 mg central line syringe 50 mg/mL 850 mg, central line, Administer over 60 Minutes, ONCE IN DIALYSIS, 1 dose, On Wed01/19/24 at 0645, Routine, Suspected Indication (Select all that apply): Moderate or Severe DM foot infectionIndications:Diabetic foot infection ([facility]) Given 01/19/2024 9:40 EDT 850 mg documented in this encounter Orders Dialysis Count Last Ordered Date First Orde red Date HEMODIALYSIS 1 01/19/2024 documented in this encounter Care Teams Commercial Construction Superintendent Relationship Specialty Start Date End Date Ken Greer [place] [address] PCP - General 07/07/23 documented as of this encounter
--- OUTSIDE RECORDS SUMMARY | 2024-12-05 12:09 | XMS_ITS | Encounter Summary ---
Author Organization [facility] Address [address] [place] [address] Care Team Providers Care Press Setter Name Role Phone Ken Greer MD Primary Care Provider [phone] Encounter Details Date Type Department Care Team (Latest Contact Info) Description 01/24/2024 6:45 EDT Treatment [facility] [address] [place], [place] [id number] Carlota Jin MD 1 [facility], Level [address] [place] [address] ESRD (end stage renal disease) ([facility]) (Primary Dx); Secondary hyperparathyroidism ([facility]); Anemia of chronic renal failure, unspecified CKD stage; Hypoalbuminemia; Diabetic foot infection ([facility]) Social History Tobacco Use Types Packs/Day Years [...] - Temperature - - Respiratory Rate 16 01/24/2024 0620 EDT Oxygen Saturation - - Inhaled Oxygen Concentration - - Weight 90 kg (198 lb 6.6 oz) 01/24/2024 0624 EDT Height - - Body Mass Index 28.47 12/20/2023 2202 EST documented in this encounter [...] Flowsheet Note - Marcela Cox RN - 01/24/2024 1302 EDT 01/24/24 1055 Post-Hemodialysis Assessment Total Blood Processed (L) 90.12 Liters On Line Clearance: spKt/V 1.59 spKt/V Dialyzer Clearance Lightly streaked Treatment UFR (ml:kg:hr) 10.03 ml:kg:hr Final Critline Profile (%/hr) -2.08 Final Profile Profile A Critline refill Negative (27.2/27.1) Fluid Removed (L) 3.5 L Post-Dialysis Scale Weight 107.3 kg (236 lb 8.9 oz) Wheelchair Weight 20.8 kg (45 lb 13.7 oz) Prosthesis Weight 0 kg (0 lb) Post-Treatment Weight (kg) 86.5 Treatment Weight Change (kg) 3.5 kg Day Target Weight (kg) 87 Post Sitting/Lying BP 110/61 Post Sitting/Lying pulse 68 Temp 35.7 ??C (96.3 ??F) Temp src [...] Contact Info) Description 12/06/2024 6:45 EST Treatment [facility] [place] [address] [place], [place] [phone] Carlota Jin MD 1 [facility] 2 [place] [address] 12/08/2024 6:45 EST Treatment [facility] [address] [place], [place] [phone] Carlota Jin MD 1 [facility] 2 [place] [address] 12/11/2024 6:45 EST Treatment [facility] [address] [place] [address] Carlota Jin MD [address] [place] [address] 2 [place] [phone] 12/13/2024 6:45 EST Treatment [facility] [place] [address] [place], [place] [id number] Carlota Jin MD 1 [facility] 2 [place] [phone] 12/15/2024 6:45 EST Treatment [facility] [place] [address] [place], [place] [phone] Carlota Jin MD 1 [facility], [facility] 2 [place] [phone] 12/18/2024 6:45 EST Treatment [facility] [place] [address] [place], [place] [phone] Carlota Jin MD 1 [facility], [facility] 2 [place] [phone] 12/20/2024 6:45 EST Treatment [facility] [place] [address] [place], [place] [phone] Carlota Jin MD 1 [facility], [address] [phone] 12/22/2024 6:45 EST Treatment [facility] [address] [place], [place] [phone] Carlota Jin MD 1 [facility], [facility] 2 [place] [phone] 12/25/2024 6:45 EST Treatment [facility] [address] [place], [place] [phone] Carlota Jin MD 1 [facility], [facility] 2 [place] [phone] 12/27/2024 6:45 EST Treatment [facility] [place] [address] [place], [place] [phone] Carlota Jin MD 1 [facility], [facility] 2 [place] [phone] 12/29/2024 6:45 EST Treatment [facility] [place] [address] [place], [place] [phone] Carlota Jin MD 1 [facility], [facility] 2 [place] [phone] 01/01/2025 6:45 EDT Treatment [facility] [place] [address] [place], [place] [phone] Carlota Jin MD 1 [facility], [facility] 2 [place] [phone] 01/03/2025 6:45 EDT Treatment [facility] [place] [address] [place], [place] [phone] Carlota Jin MD 1 [facility], [facility] 2 [place] [phone] 01/05/2025 6:45 EDT Treatment [facility] [address] [place], [place] [phone] Carlota Jin MD 1 [facility], [facility] 2 [place] [phone] 01/08/2025 6:45 EDT Treatment [facility] [place] [address] [place], [place] [phone] Carlota Jin MD 1 [facility], [facility] 2 [place] [phone] 01/10/2025 6:45 EDT Treatment [facility] [place] [address] [place], [place] [phone] Carlota Jin MD 1 [facility], [address] [phone] 01/12/2025 6:45 EDT Treatment [facility] [place] [address] [place], [place] [phone] Carlota Jin MD 1 [facility], [address] [phone] 01/15/2025 6:45 EDT Treatment [facility] [place] [address] [place], [place] [phone] Carlota Jin MD 1 [facility], [address] [phone] 01/17/2025 6:45 EDT Treatment [facility] [place] [address] [place], [place] [id number] Carlota Jin MD 1 [facility], [facility] 2 [place] [phone] 01/19/2025 6:45 EDT Treatment [facility] [place] [address] [place], [place] [id number] Carlota Jin MD 1 [facility], [facility] 2 [place] [phone] 01/22/2025 6:45 EDT Treatment [facility] [place] [address] [place], [place] [address] Carlota Jin MD 1 [facility], [facility] 2 [place] [phone] 01/24/2025 6:45 EDT Treatment [facility] [place] [address] [place], [place] [id number] Carlota Jin MD 1 [facility], [facility] 2 [place] [phone] 01/26/2025 6:45 EDT Treatment [facility] [place] [address] [place], [place] [address] Carlota Jin MD 1 [facility], [facility] 2 [place] [phone] 01/29/2025 6:45 EDT Treatment [facility] [place] [address] [place] [address] Carlota Jin MD 1 [facility], [facility] 2 [place] [phone] 01/31/2025 6:45 EDT Treatment [facility] [place] [address] [place], [place] [address] Carlota Jin MD 1 [facility], [facility] 2 [place] [phone] 02/02/2025 6:45 EDT Treatment [facility] [place] [address] [place], [place] [id number] Carlota Jin MD 1 [facility], [facility] 2 [place] [phone] 02/05/2025 6:45 EDT Treatment [facility] [place] [address] [place], [place] [id number] Carlota Jin MD [address] [place] [address], [address] [phone] 02/07/2025 6:45 EDT Treatment [facility] [place] [address] [place], [place] [id number] Carlota Jin MD [address] [place] [address], [address] [phone] 02/09/2025 6:45 EDT Treatment [facility] [place] [address] [place], [place] [phone] Carlota Jin MD [address] [place] [address], [facility] 2 [place] [phone] 02/12/2025 6:45 EDT Treatment [facility] [place] [address] [place], [place] [phone] Carlota Jin MD 1 [facility], [facility] 2 [place] [phone] 02/14/2025 6:45 EDT Treatment [facility] [place] [address] [place], [place] [id number] Carlota Jin MD 1 [facility], [facility] 2 [place] [phone] 02/16/2025 6:45 EDT Treatment [facility] [place] [address] [place], [place] [id number] Carlota Jin MD 1 [facility], [facility] 2 [place] [phone] 02/19/2025 6:45 EDT Treatment [facility] [place] [address] [place], [place] [phone] Carlota Jin MD 1 [facility], [facility] 2 [place] [phone] 02/21/2025 6:45 EDT Treatment [facility] [place] [address] [place], [place] [phone] Carlota Jin MD 1 [facility], [facility] 2 [place] [phone] documented as of this encounter Procedures Procedure Name Priority Date/Time Associated Diagnosis Comments POSTDIALYSIS BUN WITH URR CALCULATION Routine 01/24/2024 13:00 EDT ESRD (end stage renal disease) ([facility]) TRANSFERRIN SATURATION Routine 01/24/2024 6:29 EDT ESRD (end stage renal disease) ([facility]) DIALYSIS ROUTINE - DIALYSIS ONLY (BUN, K, NA, CL, CO2, SANJEEV, ALB, MG, PHOS, ALKP, AST) Routine 01/24/2024 6:29 EDT ESRD (end stage renal disease) ([facility]) PROFILE IRON STUDIES (INCLUDES IRON, IBC, AND FERRITIN) Routine 01/24/2024 6:29 EDT ESRD (end stage renal disease) ([facility]) PTH INTACT Routine 01/24/2024 6:29 EDT ESRD (end stage renal disease) ([facility]) Secondary hyperparathyroidism ([facility]) FERRITIN Routine 01/24/2024 6:29 EDT ESRD (end stage renal disease) ([facility]) HEMODIALYSIS Routine 01/24/2024 6:20 EDT ESRD (end stage renal disease) ([facility]) documented in this encounter Results * (ABNORMAL) POSTDIALYSIS BUN WITH URR CALCULATION (01/24/2024 13:00 EDT) BUN, Postdialysis 23 10 - 26 mg/dL 01/24/2024 22:11 EDT [facility] Urea Reduction Rate 68.1 Not Established % 01/24/2024 22:11 EDT [facility] Comment: NOTE: Reference range not established for Urea Reduction Rate. BUN 72(H) 10 - 26 mg/dL 01/24/2024 22:11 EDT [facility] Blood VENOUS BLOOD / Unknown Venipuncture / Unknown 01/24/2024 13:00 EDT 01/24/2024 13:00 EDT Skye Gomez NP CHEMISTRY & BLOOD GAS ORDER FRANSISCO Final Result [facility] [address] [place] [address] * (ABNORMAL) FERRITIN (01/24/2024 6:29 EDT) Ferritin 645(H) 22 - 322 ng/mL 01/25/2024 9:06 EDT [facility] Blood VENOUS BLOOD / Unknown Venipuncture / Unknown 01/24/2024 6:29 EDT 01/24/2024 6:29 EDT Skye Gomez ENTERPRISE ENGINEER CHEMISTRY & BLOOD GAS ORDER FRANSISCO Final Result [facility] [address] [place] [address] * (ABNORMAL) TRANSFERRIN SATURATION (01/24/2024 6:29 EDT) Iron 46(L) 49 - 181 ??g/dL 01/24/2024 22:22 EDT [facility] Iron Binding Capacity 200(L) 240 - 450 ??g/dL 01/24/2024 22:22 EDT [facility] Transferrin Saturation 23 15 - 45 % 01/24/2024 22:22 EDT [facility] Blood VENOUS BLOOD / Unknown Venipuncture / Unknown 01/24/2024 6:29 EDT 01/24/2024 6:29 EDT Skye Gomez ENTERPRISE ENGINEER CHEMISTRY & BLOOD GAS ORDER FRANSISCO Final Result Performing Organization Address City/[facility]/ZIP Co de Phone Number [facility] [address] [place] [address] * (ABNORMAL) PTH INTACT (01/24/2024 6:29 EDT) Intact PTH 329(H) 19 - 88 pg/mL 01/25/2024 9:02 EDT [facility] Blood VENOUS BLOOD / Unknown Venipuncture / Unknown 01/24/2024 6:29 EDT 01/24/2024 6:29 EDT Skye Gomez ENTERPRISE ENGINEER CHEMISTRY & BLOOD GAS ORDER FRANSISCO Final Result [facility] [address] [place] [address] * (ABNORMAL) DIALYSIS ROUTINE - DIALYSIS ONLY (BUN, K, NA, CL, CO2, SANJEEV, ALB, MG, PHOS, ALKP, AST) (01/24/2024 6:29 EDT) Sodium 136 136 - 145 mmol/L 01/24/2024 22:06 [facility] Potassium 5.3(H) 3.5 - 5.0 mmol/L 01/24/2024 22:06 [facility] Chloride 98 96 - 110 mmol/L 01/24/2024 22:06 [facility] CO2 Total 24 22 - 32 mmol/L 01/24/2024 22:06 [facility] Calcium 8.8 8.5 - 10.5 mg/dL 01/24/2024 22:06 [facility] Albumin 2.7(L) 3.4 - 4.9 g/dL 01/24/2024 22:06 [facility] Phosphorus 6.9(H) 2.5 - 4.5 mg/dL 01/24/2024 22:06 [facility] Calcium Phos Product 60.7 See Note mg/dL 01/24/2024 22:06 [facility] Comment: NOTE: Reference range not established BUN, Predialysis 72(H) 10 - 26 mg/dL 01/24/2024 22:06 [facility] AST 19 15 - 46 U/L 01/24/2024 22:06 [facility] Alkaline Phosphatase 107 38 - 126 U/L 01/24/2024 22:06 [facility] Magnesium 2.3 1.7 - 2.8 mg/dL 01/24/2024 22:06 [facility] Anion Gap 14 5 - 14 mmol/L 01/24/2024 22:06 [facility] Calculated Calcium 9.8 8.9 - 10.5 mg/dL 01/24/2024 22:06 [facility] Blood VENOUS BLOOD / Unknown Venipuncture / Unknown 01/24/2024 6:29 EDT 01/24/2024 6:29 EDT Skye Gomez NP CHEMISTRY & BLOOD GAS ORDER FRANSISCO Final Result [facility] [address] [place] [address] documented in this encounter Visit Diagnoses Diagnosis ESRD (end stage renal disease) ([facility] Primary End stage renal disease Secondary hyperparathyroidism ([facility]) Secondary hyperparathyroidism (of renal origin) Anemia of chronic renal failure, unspecified CKD stage Hypoalbuminemia Other disorders of plasma protein metabolism Diabetic foot infection ([facility]) Type II or unspecified type diabetes mellitus with other specified manifestations, not stated as uncontrolled documented in this encounter Administered Medications Inactive Administered Medications - up to 3 most recent administrations Medication Order MAR Action Action Date Dose Rate Site calcium carbonate (TUMS) tablet 500 mg (200 mg elemental calcium) 2 Tablet 2 Tablet, oral, ONCE IN DIALYSIS, 1 dose, On Wed01/24/24 at 0645, Routine, DialysisIndications:ESRD (end stage renal disease) ([facility]),Secondary hyperparathyroidism ([facility]) Given 01/24/2024 6:54 EDT 2 Tablets epoetin ken (EPOGEN) 20,000 unit/2 mL injection 3,000 Units 3,000 Units, intravenous, ONCE IN DIALYSIS, 1 dose, On Wed01/24/24 at 0645, Routine, DialysisIndications:ESRD (end stage renal disease) ([facility]),Anemia of chronic renal failure, unspecified CKD stage Given 01/24/2024 6:54 EDT 3,000 Units ertapenem (INVANZ) 1,000 mg in sodium chloride (PF) 10 mL Syringe 1,000 mg, intravenous, Administer over 5 Minutes, ONCE IN DIALYSIS, 1 dose, On Wed01/24/24 at 0645, Type of Therapy: Definitive, Based on Cultures, Suspected Indication (Select all that apply): Polymicrobial DM foot infection, RoutineIndications:Diabetic foot infection ([facility]) Given 01/24/2024 10:40 EDT 1,000 mg heparin injection 9,000 Units 9,000 Units, intravenous, ONCE IN DIALYSIS, 1 dose, On Wed01/24/24 at 0645, Routine, Dialysis, Now x1 bolus 4500 units to be given at the beginning of dialysis 1500 units/hour to be given over the course of dialysis (9000 units total). Stop 1 hour prior to end of treatment. To be administered per Policy [id number].Indications:ESRD (end stage renal disease) ([facility]) Given 01/24/2024 6:54 EDT 9,000 Units LiquaCel liquid protein liquid 30 mL 30 mL, oral, ONCE IN DIALYSIS, 1 dose, On Wed01/24/24 at 0645, RoutineIndications:ESRD (end stage renal disease) ([facility]),Hypoalbuminemia Given 01/24/2024 6:54 EDT 30 mL vancomycin 850 mg central line syringe 50 mg/mL 850 mg, central line, Administer over 60 Minutes, ONCE IN DIALYSIS, 1 dose, On Wed01/24/24 at 0645, Routine, Suspected Indication (Select all that apply): Moderate or Severe DM foot infectionIndications:Diabetic foot infection ([facility]) Given 01/24/2024 9:40 EDT 850 mg documented in this encounter Orders Dialysis Count Last Ordered Date First Orde red Date HEMODIALYSIS 1 01/24/2024 documented in this encounter Care Teams Press Setter Relationship Specialty Start Date End Date Ken Greer [place] [address] [place] [address] PCP - General 07/07/23 documented as of this encounter
--- OUTSIDE RECORDS SUMMARY | 2024-12-05 12:09 | XMS_ITS | Encounter Summary ---
Author Organization [facility] Address [address] [place] [address] Care Team Providers Care Jde Developer Name Role Phone Ken Greer MD Primary Care Provider [phone] Encounter Details Date Type Department Care Team (Latest Contact Info) Description 01/28/2024 6:45 EDT Treatment [facility] [address] [place], [place] [phone] Carlota Jin MD 1 [facility], Level 2 [place] [address] ESRD (end stage renal disease) ([facility]) (Primary Dx); Anemia of chronic renal failure, unspecified CKD stage; Hypoalbuminemia; Secondary hyperparathyroidism ([facility]); Diabetic foot infection ([facility]) Social History Tobacco Use Types [...] - Temperature - - Respiratory Rate 16 01/28/2024 0638 EDT Oxygen Saturation - - Inhaled Oxygen Concentration - - Weight 87.8 kg (193 lb 9 oz) 01/28/2024 0638 EDT Height - - Body Mass Index 27.77 12/20/2023 2202 EST documented in this encounter [...] Flowsheet Note - Marcela Cox RN - 01/28/2024 1309 EDT 01/28/24 1051 Post-Hemodialysis Assessment Total Blood Processed (L) 90.85 Liters On Line Clearance: spKt/V 1.63 spKt/V Dialyzer Clearance Lightly streaked Treatment UFR (ml:kg:hr) 6.37 ml:kg:hr Final Critline Profile (%/hr) -1.93 Final Profile Profile A Critline refill Negative Fluid Removed (L) 2 L Post-Dialysis Scale Weight 106.4 kg (234 lb 9.1 oz) Wheelchair Weight 20.8 kg (45 lb 13.7 oz) Prosthesis Weight 0 kg (0 lb) Post-Treatment Weight (kg) 85.6 Treatment Weight Change (kg) 2.2 kg Day Target Weight (kg) 86.3 Post Sitting/Lying BP 159/82 Post Sitting/Lying pulse 67 Temp 36.2 ??C [...] Description 12/06/2024 6:45 EST Treatment [facility] [address] [place], [place] [phone] Carlota Jin MD [address] [place] [address] 2 [place] [phone] 12/08/2024 6:45 EST Treatment [facility] [address] [place], [place] [phone] Carlota Jin MD [address] [place] [address], [facility] 2 [place] [phone] 12/11/2024 6:45 EST Treatment [facility] [address] [place], [place] [phone] Carlota Jin MD [address] [place] [address] 2 [place] [phone] 12/13/2024 6:45 EST Treatment [facility] [place] [address] [place], [place] [address] Carlota Jin MD 1 [facility], [facility] 2 [place] [phone] 12/15/2024 6:45 EST Treatment [facility] [place] [address] [place] [address] Carlota Jin MD 1 [facility], [address] [phone] 12/18/2024 6:45 EST Treatment [facility] [place] [address] [place], [place] [phone] Carlota Jin MD 1 [facility], [address] [phone] 12/20/2024 6:45 EST Treatment [facility] [address] [place] [address] Carlota Jin MD 1 [facility], [address] [phone] 12/22/2024 6:45 EST Treatment [facility] [address] [place], [place] [id number] Carlota Jin MD [address] [phone] 12/25/2024 6:45 EST Treatment [facility] [address] [place], [place] [phone] Carlota Jin MD 1 [facility], [facility] 2 [place] [phone] 12/27/2024 6:45 EST Treatment [facility] [place] [address] [place], [place] [phone] Carlota Jin MD 1 [facility], [facility] 2 [place] [phone] 12/29/2024 6:45 EST Treatment [facility] [place] [address] [place], [place] [id number] Carlota Jin MD 1 [facility], [facility] 2 [place] [phone] 01/01/2025 6:45 EDT Treatment [facility] [address] [place] [address] Carlota Jin MD 1 [facility], [facility] 2 [place] [phone] 01/03/2025 6:45 EDT Treatment [facility] [place] [address] [place], [place] [phone] Carlota Jin MD 1 [facility], [facility] 2 [place] [phone] 01/05/2025 6:45 EDT Treatment [facility] [place] [address] [place], [place] [phone] Carlota Jin MD 1 [facility], [facility] 2 [place] [phone] 01/08/2025 6:45 EDT Treatment [facility] [place] [address] [place], [place] [address] Carlota Jin MD 1 [facility], [facility] 2 [place] [phone] 01/10/2025 6:45 EDT Treatment [facility] [place] [address] [place], [place] [phone] Carlota Jin MD 1 [facility], [facility] 2 [place] [phone] 01/12/2025 6:45 EDT Treatment [facility] [place] [address] [place], [place] [phone] Carlota Jin MD 1 [facility], [address] [phone] 01/15/2025 6:45 EDT Treatment [facility] [place] [address] [place], [place] [phone] Carlota Jin MD [address] [phone] 01/17/2025 6:45 EDT Treatment [facility] [place] [address] [place], [place] [phone] Carlota Jin MD [address] [phone] 01/19/2025 6:45 EDT Treatment [facility] [address] [place], [place] [phone] Carlota Jin MD 1 [facility] 2 [place] [phone] 01/22/2025 6:45 EDT Treatment [facility] [place] [address] [place], [place] [phone] Carlota Jin MD 1 [facility], [facility] 2 [place] [phone] 01/24/2025 6:45 EDT Treatment [facility] [place] [address] [place], [place] [phone] Carlota Jin MD 1 [facility], [facility] 2 [place] [phone] 01/26/2025 6:45 EDT Treatment [facility] [address] [place], [place] [phone] Carlota Jin MD 1 [facility], [facility] 2 [place] [phone] 01/29/2025 6:45 EDT Treatment [facility] [place] [address] [place] [address] Carlota Jin MD 1 [facility], [facility] 2 [place] [phone] 01/31/2025 6:45 EDT Treatment [facility] [address] [place], [place] [phone] Carlota Jin MD 1 [facility], [facility] 2 [place] [phone] 02/02/2025 6:45 EDT Treatment [facility] [place] [address] [place], [place] [phone] Carlota Jin MD 1 [facility], [facility] 2 [place] [phone] 02/05/2025 6:45 EDT Treatment [facility] [place] [address] [place], [place] [phone] Carlota Jin MD [address] [place] [address], [address] [phone] 02/07/2025 6:45 EDT Treatment [facility] [address] [place], [place] [phone] Carlota Jin MD [address] [place] [address], [address] [phone] 02/09/2025 6:45 EDT Treatment [facility] [place] [address] [place], [place] [phone] Carlota Jin MD [address] [place] [address], [facility] 2 [place] [phone] 02/12/2025 6:45 EDT Treatment [facility] [place] [address] [place], [place] [phone] Carlota Jin MD 1 [facility], [facility] 2 [place] [phone] 02/14/2025 6:45 EDT Treatment [facility] [place] [address] [place], [place] [phone] Carlota Jin MD 1 [facility], [facility] 2 [place] [phone] 02/16/2025 6:45 EDT Treatment [facility] [place] [address] [place] [phone] Carlota Jin MD 1 [facility], [facility] 2 [place] [phone] 02/19/2025 6:45 EDT Treatment [facility] [address] [place] [phone] Carlota Jin MD 1 [facility], [address] [phone] 02/21/2025 6:45 EDT Treatment [facility] [address] [place] [phone] Carlota Jin MD 1 [facility], [address] [phone] documented as of this encounter Procedures Procedure Name Priority Date/Time Associated Diagnosis Comments VANCOMYCIN, RANDOM Routine 01/28/2024 6:42 EDT ESRD (end stage renal disease) ([facility]) HEMODIALYSIS Routine 01/28/2024 6:38 EDT ESRD (end stage renal disease) ([facility]) documented in this encounter Results * VANCOMYCIN, RANDOM (01/28/2024 6:42 EDT) Vancomycin Random 12.9 See Note ??g/mL 01/28/2024 21:[address] [facility] Comment: NOTE: Reference Ranges: Trough: ??10.0 - 20.0 ug/mL Peak: ??25.0 - 50.0 ug/mL Blood VENOUS BLOOD / Unknown Venipuncture / Unknown 01/28/2024 6:42 EDT 01/28/2024 6:42 EDT us Carlota Jin MD CHEMISTRY & BLOOD GAS ORD ERABLES Final Result [facility] [address] [place] [address] documented in this encounter Visit Diagnoses Diagnosis ESRD (end stage renal disease) ([facility])- Primary End stage renal disease Anemia of chronic renal failure, unspecified CKD stage Hypoalbuminemia Other disorders of plasma protein metabolism Secondary hyperparathyroidism ([facility]) Secondary hyperparathyroidism (of renal origin) Diabetic foot infection ([facility]) Type II or unspecified type diabetes mellitus with other specified manifestations, not stated as uncontrolled documented in this encounter Administered Medications Inactive Administered Medications - up to 3 most recent administrations Medication Order MAR Action Action Date Dose Rate Site calcium carbonate (TUMS) tablet 500 mg (200 mg elemental calcium) 2 Tablet 2 Tablet, oral, ONCE IN DIALYSIS, 1 dose, On Wed01/28/24 at 0700, Routine, DialysisIndications:ESRD (end stage renal disease) ([facility]),Secondary hyperparathyroidism ([facility]) Given 01/28/2024 7:16 EDT 2 Tablets epoetin ken (EPOGEN) 20,000 unit/2 mL injection 3,000 Units 3,000 Units, intravenous, ONCE IN DIALYSIS, 1 dose, On Wed01/28/24 at 0700, Routine, DialysisIndications:ESRD (end stage renal disease) ([facility]),Anemia of chronic renal failure, unspecified CKD stage Given 01/28/2024 7:15 EDT 3,000 Units ertapenem (INVANZ) 1,000 mg in sodium chloride (PF) 10 mL Syringe 1,000 mg, intravenous, Administer over 5 Minutes, ONCE IN DIALYSIS, 1 dose, On Wed01/28/24 at 0700, Type of Therapy: Definitive, Based on Cultures, Suspected Indication (Select all that apply): Polymicrobial DM foot infection, RoutineIndications:Diabetic foot infection (HCC-CMS) Given 01/28/2024 10:50 EDT 1,000 mg heparin injection 9,000 Units 9,000 Units, intravenous, ONCE IN DIALYSIS, 1 dose, On Wed01/28/24 at 0700, Routine, Dialysis, Now x1 bolus 4500 units to be given at the beginning of dialysis 1500 units/hour to be given over the course of dialysis (9000 units total). Stop 1 hour prior to end of treatment. To be administered per Policy [id number].Indications:ESRD (end stage renal disease) ([facility]) Given 01/28/2024 7:15 EDT 9,000 Units LiquaCel liquid protein liquid 30 mL 30 mL, oral, ONCE IN DIALYSIS, 1 dose, On Wed01/28/24 at 0700, RoutineIndications:ESRD (end stage renal disease) ([facility]),Hypoalbuminemia Given 01/28/2024 7:15 EDT 30 mL vancomycin 850 mg central line syringe 50 mg/mL 850 mg, central line, Administer over 60 Minutes, ONCE IN DIALYSIS, 1 dose, On Wed01/28/24 at 0700, Routine, Suspected Indication (Select all that apply): Moderate or Severe DM foot infectionIndications:Diabetic foot infection ([facility]) Given 01/28/2024 9:50 EDT 850 mg documented in this encounter Orders Dialysis Count Last Ordered Date First Orde red Date HEMODIALYSIS 1 01/28/2024 documented in this encounter Care Teams Jde Developer Relationship Specialty Start Date End Date Ken [place] [address] [place] [address] PCP - General 07/07/23 documented as of this encounter
--- OUTSIDE RECORDS SUMMARY | 2024-12-05 12:10 | XMS_ITS | Encounter Summary ---
Author Organization [facility] Address [address] [place] [address] Care Team Providers Care Health Insurance Specialist Name Role Phone Ken Greer MD Primary Care Provider [phone] Encounter Details Date Type Department Care Team (Latest Contact Info) Description 01/10/2024 6:45 EDT Treatment [facility] [address], [place] [id number] Carlota Jin MD [address] [facility], Level [address] [place] [address] ESRD (end stage renal disease) ([facility]) (Primary Dx); Anemia of chronic renal failure, unspecified CKD stage; Hypoalbuminemia; Secondary hyperparathyroidism ([facility]); Diabetic foot infection ([facility]) Social History Tobacco Use Types Packs/Day Years [...] - Temperature - - Respiratory Rate 16 01/10/2024 0621 EDT Oxygen Saturation - - Inhaled Oxygen Concentration - - Weight 89 kg (196 lb 3.4 oz) 01/10/2024 0623 EDT Height - - Body Mass Index 28.15 12/20/2023 2202 EST documented in this encounter [...] Flowsheet Note - Marcela Cox RN - 01/10/2024 1343 EDT 01/10/24 1043 Post-Hemodialysis Assessment Total Blood Processed (L) 89.29 Liters On Line Clearance: spKt/V 1.56 spKt/V Dialyzer Clearance Lightly streaked Treatment UFR (ml:kg:hr) 7.69 ml:kg:hr Critline refill Not done Fluid Removed (L) 3 L Post-Dialysis Scale Weight 108 kg (238 lb 1.6 oz) Wheelchair Weight 20.8 kg (45 lb 13.7 oz) Prosthesis Weight 0.9 kg (1 lb 15.8 oz) Post-Treatment Weight (kg) 86.3 Treatment Weight Change (kg) 2.7 kg Day Target Weight (kg) 86.5 Post Sitting/Lying BP 124/61 Post Sitting/Lying pulse 58 Temp 36.4 ??C (97.5 ??F) Temp src Temporal Minutes Short -244 [...] Dialysis Comprehensive - Carlota Jin MD - 01/10/2024 0645 EDT Images from the original note were not included. 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 associated with type 2diabetes mellitus ([facility]) ESRD (end stage renal disease) ([facility]) Primary hypertension [I10] Hearing loss Herniation of lumbar intervertebral disc with radiculopathy Hyperlipidemia Proteinuria Right sided numbness Secondary hyperparathyroidism ([facility]) TIA (transient ischemic attack) Type II or unspecified type diabetes mellitus with neurological manifestations, uncontrolled(250.62) Encounter for immunization Hypoalbuminemia Anemia of chronic renal failure Abnormal albumin Cellulitis and abscess of foot, except toes Encounter for therapeutic drug monitoring Diabetic foot infection ([facility]) [E11.628, L08.9] COVID Type 2 diabetes mellitus with chronic kidney disease on chronic dialysis, with long-term current use of insulin ([facility]) [E11.22, N18.6, Z99.2, Z79.4] Anemia of chronic renal failure, stage 5 ([facility]) [N18.5, D63.1] ESRD on hemodialysis ([facility]) Treatment Modality: Patient received information regarding treatment options: No Patient is interested in pursuing a different [...] No Listing On-Hold? No No Transplant Center [facility] Comments Patient does not meet transplant criteria due to daily smoking cigarettes pt referred to transplant @ [facility] Current Dialysis Prescription: Hemodialysis Therapy Plan In-Center Hemodialysis 3 times a week Prescribed Weight (Kg): 86.5 Treatments Per Week: 3 Dialyzer: OPTIFLUX 250NR [...] with Nursing: Yes Average Interdialytic Fluid Gains: 01/05/2024 6:26 01/05/2024 6:27 01/05/2024 10:42 01/07/2024 6:39 01/07/2024 11:25 01/10/2024 6:21 01/10/2024 6:23 InterDialytic +/- Gain/Loss 2.3 2.3 1.6 3.4 3.4 Wt (pre) 89.9 89.9 88.1 89 89 Wt (post) 86.5 85.6 Treatment UFR (ml:kg:hr) 9.75 ml:kg:hr 7.36 ml:kg:hr BP (post) 160/82 160/82 165/82 161/83 161/83 Pulse(post) 61 61 57 62 62 Resp (/min) 16 16 16 Volume and blood pressure have been addressed with the following changes: None Consistently able to achieve estimated dry weight? Yes Blood pressure is in range for patient? Yes Any adverse intradialytic symptoms? No Plan: Managed per protocol Physical Exam Constitutional No distress. Very sleepy and difficult to rouse Respiratory: CTAB, unlabored breathing Cardiac: RRR Abdomen: soft Extremities: LLE in wrap; RLE with trace edema Hospitalization Hospitalization in Previous 1 Month: Yes: HOSPITAL MEDICINE DISCHARGE SUMMARY Primary Care Provider: Ken Greer MD Attending Physician: Richy Alfonso MD Admit Date: 12/20/23 Discharge Date: 12/24/23 Disposition (location): Home with home health Condition at Discharge: Improved Reason for Admission (chief complaint): Diabetic foot infection Principal/Final Diagnosis: Diabetic foot infection ([facility]) Additional Problems Managed in the Hospital: Active Hospital Problems Diagnosis Date Noted *Diabetic foot infection ([facility]) [E11.628, L08.9] 11/07/2023 Anemia of chronic renal failure, stage 5 ([facility]) [N18.5, D63.1] 12/20/2023 ESRD on hemodialysis ([facility]) 12/20/2023 Type 2 diabetes mellitus with chronic kidney disease on chronic dialysis, with long-term current use of insulin ([facility]) [E11.22, N18.6, Z99.2, Z79.4] 11/09/2023 ESRD (end stage renal disease) ([facility]) 11/11/2022 Primary hypertension [I10] 07/19/2016 Resolved Hospital Problems Diagnosis Date Noted Date Resolved Atrial fibrillation with RVR ([facility]) 12/21/2023 12/24/2023 Hyperkalemia [E87.5] 12/20/2023 12/24/2023 Cellulitis 12/20/2023 12/24/2023 Transition of care: [facility] Transition of Care report automatically routed to PCP office on discharge. Clinical Issues Needing Follow-up 1. Pertinent medication changes: - continue vancomycin and ertapenem with HD through 01/30 session - decrease lyrica max daily dose to 200 mg - aspart sliding scale - levemir 32U at bedtime - diltiazem 120 mg daily. Stop amlodipine - apixaban 5 mg twice daily 2. Recommended follow-up tests/procedures needed: - Orthopedics follow-up - Endocrine evaluation (requesting [facility]) - Home health PT and RN for support with wound care and insulin management. 3. Anticoagulation on discharge: Yes - new start Indication(s): Atrial fibrillation Medication: DOAC apixaban 4. Changes to goals of care at time of discharge (if applicable): None Hospital Course: Gerson Bruner is a 58 y.o. 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 with diabetic foot wound. ID, Vascular Surgery, Orthopedics, Nephrology consulted. He was initially managed with ertapenem and vancomycin was added per ID prior to discharge based on culture data. Vascular Surgery appreciated DP signal with recent ABIs showing no evidence of large vessel arterial insufficiency so no vascular intervention warranted. Orthopedics debrided eschar to left heel with recommendations for twice daily wet to dry dressing changes. Course complicated by newly identified of AF RVR with improved rate control on diltiazem. CHADS2-Vasc2 score 5 (hx of TIA per , HTN, DM, PAD) for which patient ultimately elected to pursue apixaban for stroke prophylaxis. He also had hyperkalemia to 6.0 which resolved with lokelma x 1 and ongoing HD. Relevant Imaging/Procedures Performed: TRANSTHORACIC ECHO (TTE) COMPLETE Result Date: 12/21/2023 Left Ventricle: The left ventricular cavity was normal in size. Left ventricular systolic function was low normal with an ejection fraction of 50-55%. Left ventricular wall motion was normal; there were no regional wall motion abnormalities. Right Ventricle: The right ventricular cavity was normal in size. Right ventricular systolic function was normal. XR FOOT LEFT 3 OR MORE VIEWS Result Date: 12/20/2023 FINDINGS / IMPRESSION: * No acute fracture or traumatic malalignment. * Subcutaneous air and edema in the soft tissues inferior to the calcaneus with adjacent ulceration of the skin appreciated to better extent on same-day CT compatible with cellulitis. No evidence of osseous erosion to indicate ost eomyelitis. * Atherosclerosis. * Scattered degenerative changes through the foot. XR CHEST PORTABLE 1 VIEW Result Date: 12/20/2023 Patchy opacities within the right midlung and lung base which could represent pneumonia in this patient with leukocytosis. RECOMMENDATIONS: A short-term follow-up 2-view chest radiograph is recommended in 6-8 weeks to document resolution of lung opacity (or opacities) after therapy. I Results Pending at Discharge: Test results still pending from this admission Procedure Component Value Units Date/Time Anaerobe Culture/Smear (inc. aerobes), Other [[id number]] (Abnormal) Collected: 12/22/23 0108 Lab Status: Preliminary result Specimen: Tissue from Heel Updated: 12/24/23 1442 Organism ID Moderate Enterococcus faecalis Few Streptococcus agalactiae (Group B) Few Corynebacterium striatum Rare Staphylococcus aureus One [place] Only Corynebacterium amycolatum Few Bacteroides fragilis group Few Finegoldia magna Smear Moderate Neutrophils Present Many Mixed gram positive and gram negative organisms Bacterial Culture, Blood [[id number]] Collected: 12/19/231748 Lab Status: In process Specimen: Blood, Venous Updated: 12/19/231812 Bacterial Culture, Blood [[id number]] Collected: 12/19/231748 Lab Status: In process Specimen: Blood, Venous Updated: 12/19/231812 Please Note: Does not include future Hemodialysis appointments. Please use Chart Review-Encounters to see future scheduled Hemodialysis appointments. Upcoming Appointments Jan 24, 2024 14:15 Office Visit with Teja Whipple MD [facility] Vascular Surgery - [facility] (--) [address] [place] [id number] Follow-up appointments and procedures [facility] ([facility]) I certify that this patient is under my care and that I, or another Medicare allowed practitioner (DO PALAK, LISA) working with me, had a [id number] encounter with this patient on this date: 12/24/2023 The discharge summary or progress note will provide further details that support the need for the home health services and the plan of care.: Yes Enter the allowed practitioner (DO PALAK, LISA) who will provide oversight of this patient's home heatlh care needs and plan of care: Dr. Greer Some payers require a patient to be homebound to qualify for home health services. Homebound definition: Absences from home are infrequent or for relatively short duration (such as for medical appointments). Is patient HOMEBOUND?: Yes The patient???s homebound status is related to the following diagnoses, illness or condition (describe): diabetic foot infection (right) The patient has a condition due to an illness or injury that restricts the ability to leave home except with: Assistance/Support device Assistive device: Other Please specify: walker in home, wheelchair for appointments / HD Leaving home requires a considerable and taxing effort with mobility limited by the following (criteria 1): Impaired gait Leaving home requires a considerable and taxing effort with mobility limited by the following (criteria 2): Pain Skilled care requested: Nursing (includes assessment, treatment, disease management/education, wound care) Acute therapies (includes PT, [employer]) Nursing skilled care requested: Disease management Wound care Assisted Referral - Disease Mgmt and Education about: Diabetes Assisted Referral - Wound Care: (Please include care and frequency.): Post-surgical Frequency of wound care: 3x weekly If greater than 3x weekly, indicate person taught wound care prior to discharge: spouse Number of Wound/Dressing Sites: 1 Wound/Dressing Location Site 1 (Please ensure to send the client home with 1 weeks' worth of supplies): Foot Cleanse Wound Site 1: Normal saline Associated Medications Site 1 (Please make sure you also place prescription order): Not Applicable Primary Wound Dressing Site 1: Other Please Specify: wet to dry Cover Wound Site 1: Other Please Specify: kerlix Adhesive Site 1: Other JUAN bandage Please Specify: secure with juan bandage Therapies skilled care requested: Physical Therapy Physical therapy is needed for: Evaluation Equipment Recommendations Authorizing Provider: Sourav Kilgore PA-C Amb Consult/Follow Up Anticoagulation (Other than Warfarin) Management Will [facility] Hematology be managing this patient's anticoagulation?: No Authorizing Provider: Sourav Kilgore PA-C Amb Consult/Follow Up Orthopedics - [facility] Reason for Request: calcaneal heel ulcer Authorizing Provider: Andre Zafar MD Amb Consult/Follow Up Endocrinology Reason for Request: uncontrolled T2DM, ESRD, diabetic foot infection Expected Discharge Date (Inpatient Only): 12/24/2023 Practice Site [place]External Referral Only[place] [facility]izing Provider: Sourav Kilgore PA-C <30 minutes spent caring for this patient on day of discharge with greater than 50% dedicated todischarge planning and coordination of care. The patient was discussed with Dr. Alfonso who saw the patient prior to discharge. Sourav Kilgore PA-C 12/24/2023 15:03 Cosigned by: Richy Alfonso MD at 12/28/2023 10:24 Emergency Room Visit in Previous 1 Month: Yes: For the above Access Management Current LDAs: Hemodialysis Arteriovenous Access 02/13/19 (Active) AV Fistula Present 01/10/24 0645 Site Assessment Clean;Dry;Intact;Thrill felt;Bruit heard 01/10/24 0645 Current State Active 01/10/24 0645 Status Accessed 01/10/2445 Is Maturing N 01/10/2445 Local Anesthetic None 01/10/2445 Site Prep Chlorhexidine 01/10/2445 Venous Needle Size 15 G 01/10/2445 Arterial/Generic Needle Size 15 G 01/10/24 0645 Accessed by: Sandra Rae 01/10/2445 Access Attempts 1 01/10/2445 Dressing Status/Care Clean/Dry/Intact 01/10/24 0645 Dressing Intervention Other (Comment) 12/22/23 1134 Patient [...] mouth 2 times daily., Disp: , Rfl: dilTIAZem (CARDIZEM CD) 120 [...] insulin pen needles 32G x 5/32, Brand: MenoGeniX Ultra Fine Anny. ISS TID and levemir once daily, Disp: 100 Each, Rfl: 11 LEVEMIR FLEXPEN 100 unit/mL (3 mL) injectable pen, Inject 32 Units into the skin daily., Disp: , Rfl: oxyCODONE-acetaminophen (PERCOCET) 5-325 mg per tablet, TAKE ONE TABLET BY MOUTH TWICE A DAY NEEDED FOR PAIN, MAXIMUM DAILY DOSE = 2 TABLETS, Disp: , Rfl: polyethylene glycol 3350 (MIRALAX) [...] 100 mg tablet, Take 1 Tablet by mouth., Disp: , Rfl: Adjustment made to home medication: No Dialysis Medication Review Dialysis Plan Order Summary All Current Orders Interval Duration Due Hemodialysis Therapy Plan Dialysis Treatment In-Center Hemodialysis 3 times a week Week of 01/09/2024 Routine, ONE TIME Starting when released Prescribed Weight (Kg): 86.5 Treatments Per Week: 3 Dialyzer: OPTIFLUX 250NR Dialysate concentrate: Potassium 2 mEq/L Calcium 2.5 mEq/L Sodium NA+: Other Please specify: 136 Dialysate: Bicarb (mEq/L): 33 Dialysate Temperature (Centigrade): 36.5 BFR mL/min: 400 mL/min Dialysate Flow Rate (mL/min): 800 mL/min Duration of Treatment (hrs): 4 Hours Primary Access Site: AV Fistula Needle gauge: 15g 1 Dialysis - UF Profile: None Dialysis Last released: Wed01/10/2024 Oxygen Therapy (Age 2 yrs. to Adult) [...] released Until Discontinued, Pain, Dialysis Last released: Wed12/06/2023 diphenhydrAMINE (BENADRYL) capsule 25 mg PRN PRN [...] of treatment. To be administered per Policy [id number]. Last released: Wed01/10/2024 sodium chloride 0.9 % BOLUS 100 mL PRN PRN 100 mL, intravenous, PRN Starting when released Until Discontinued, Other, hypotension or cramping,Dialysis Last released: Never Dialysis Weekly Labs Complete Blood Count Weekly: Wed01/12/2024 Routine, ONE TIME Starting when released, Blood, Venous, Blood Results Release to Patient (Note: Choosing Manual Release will only block results from tests performed at [facility] and does not apply for Miscellaneous Test Order): Immediate via MyChart Portal Dialysis Last released: Wed01/05/2024 Dialysis Monthly Labs Dialysis Iron (Includes Iron, IBC, and Ferritin) - Nephrology Use Only On the Wed of every 1 month Wed01/24/2024 Routine, ONE TIME Starting when released, Blood, Venous, Blood Results Release to Patient (Note: Choosing Manual Release will only block results from tests performed at [facility] and does not apply for Miscellaneous Test Order): Immediate via MyChart Portal Dialysis Last released: Wed12/27/2023 Dialysis Routine- Dialysis Use Only On the Wed of every 1 month Wed01/24/2024 Routine, ONE TIME Starting when released, Blood, Blood, Venous Results Release to Patient (Note: Choosing Manual Release will only block results from tests performed at [facility] and does not apply for Miscellaneous Test Order): Immediate via [employer] Portal Dialysis Last released: Wed12/27/2023 Postdialysis BUN with URR Calculation On the Wed of every 1 month Wed01/24/2024 Routine, ONE TIME Starting when released, Blood, Blood, Venous Results Release to Patient (Note: Choosing Manual Release will only block results from tests performed at [facility] and does not apply for Miscellaneous Test Order): Immediate via [employer] Portal Dialysis Last released: Wed12/27/2023 Dialysis Quarterly Labs PTH Intact On the Wed of every 3 months Wed01/24/2024 Routine, ONE TIME Starting when released, Blood, Venous, Blood Results Release to Patient (Note: Choosing Manual Release will only block results from tests performed at [facility] and does not apply for Miscellaneous Test Order): Immediate via [employer] Portal Dialysis Last released: Wed10/27/2023 Dialysis Annual Labs - October Dialysis Hepatitis- Dialysis Use Only On the Wed of every 12 months Wed10/30/2024 Routine, ONE TIME Starting when released, Blood, Blood, Venous Results Release to Patient (Note: Choosing Manual Release will only block results from tests performed at [facility] and does not apply for Miscellaneous Test Order): Immediate via [employer] Portal Dialysis Last released: Wed10/27/2023 Folate On the Wed of every 12 months Wed10/30/2024 Routine, ONE TIME Starting when released, Blood, Venous, Blood Results Release to Patient (Note: Choosing Manual Release will only block results from tests performed at [facility] and does not apply for Miscellaneous Test Order): Immediate via MyChart Portal Dialysis Last released: Wed10/27/2023 Vitamin B12 On the Mon of every 12 months Wed10/30/2024 Routine, ONE TIME Starting when released, Blood, Venous, Blood Results Release to Patient (Note: Choosing Manual Release will only block results from tests performed at [facility] and does not apply for Miscellaneous Test Order): Immediate via MyChart Portal Dialysis Last released: Wed10/27/2023 Vitamin D (25,OH) On the Wed of every 12 months Wed10/30/2024 Routine, ONE TIME Starting when released, Blood, Venous, Blood Results Release to Patient (Note: Choosing Manual Release will only block results from tests performed at [facility] and does not apply for Miscellaneous [...] block results from tests performed at [facility] and does not apply for Miscellaneous Test Order): Immediate via MyChart Portal Dialysis Last released: Wed04/26/2023 HEMODIALYSIS ANEMIA MEDS Medications epoetin ken (EPOGEN) 20,000 unit/2 mL injection 2,000 Units 3 times a week Week of 01/09/2024 2,000 Units, intravenous, ONCE IN DIALYSIS Starting when released, Dialysis Last released: Wed01/10/2024 HEMODIALYSIS NUTRITIONAL SUPPLEMENTS Nutritional Supplements LiquaCel liquid protein liquid 30 mL Every visit Every visit 30 mL, oral, ONCE IN DIALYSIS Starting when released Last released: Wed01/10/2024 HEMODIALYSIS CKD MBD MEDS Medications calcium carbonate (TUMS) tablet 500 mg (200 mg elemental calcium) 2 Tablet Every visit Every visit 2 Tablet, oral, ONCE IN DIALYSIS Starting when released, Dialysis Last released: Wed01/10/2024 Hemodialysis Antibiotics Medications ertapenem (INVANZ) 1,000 mg in sodium chloride (PF) 10 mL Syringe Weekly: Wed, Wed, Wed Until 01/31/2024Wed01/12/2024 1,000 mg, intravenous, Administer over 5 Minutes, ONCE IN DIALYSIS Starting when released Type of Therapy: Definitive, Based on Cultures Suspected Indication (Select all that apply): Polymicrobial DM foot infection Last released: Wed01/10/2024 vancomycin 850 mg central line syringe 50 mg/mL Every visit Until 01/31/2024 Every visit 850 mg, central line, Administer over 60 Minutes, ONCE IN DIALYSIS Starting when released Suspected Indication (Select all that apply): Moderate or Severe DM foot infection Last released: 01/10/2024 Adjustment made to dialysis medication: No Laboratory Results Dialysis Adequacy: spKt/V: 1.45 (Calculated from:; BUN Pre-Dialysis: 51 mg/dL at 12/31/2023 10:57; BUN Post-Dialysis: 15mg/dL at 12/31/2023 10:57; Pre-Treatment Weight (kg): 89.4 at 12/31/2023 6:28; Post-Treatment Weight (kg): 86.2 at 12/31/2023 10:57; Duration of Treatment (minutes): 244 minutes at 12/31/2023 10:46) Plan: Continue current dialysis prescription Anemia Management: Lab Results Component Value Date WBC 11.33 (H) 01/05/2024 HGB 7.2 (L) 01/05/2024 HGB 7.4 (L) 12/29/2023 HGB 7.4 (L) 12/27/2023 PLT 384 (H) 01/05/2024 FOLATE >24.0 10/27/2023 [id number] 607 10/27/2023 FERRITIN 992 (H) 12/27/2023 Current GEORGE/Dose: HEMODIALYSIS ANEMIA MEDS epoetin ken (EPOGEN) 20,000 unit/2 mL injection 2,000 Units 2,000 Units, intravenous, 3 times a week, ONCE IN DIALYSIS Iron Series/Maintenance: This patient does not have an active medication from one of the medication groupers. Oral Iron: This patient does not have an active medication from one of the medication groupers. Blood Transfusion in Last Month: No Patient Meets Anemia Management Goals: No: HGB low in setting of recent foot infection Plan: Managed per protocol; will increase EPO to 3,000/treatment Mineral and Renal Bone Disease Management: Lab Results Component Value Date LABALBU 2.6 (L) 12/27/2023 ALKPHOS 103 12/27/2023 PHOS 5.1 (H) 12/27/2023 CALCIUM 8.4 (L) 12/27/2023 CALCCA 9.5 12/27/2023 PTH 707 (H) 10/27/2023 Vitamin D: This patient does not have an active medication from one of the medication groupers. sevelamer hydrochloride - 800 mg This patient does not have an active medication from one of the medication groupers. Plan: Managed per protocol Potassium Management: Lab Results Component Value Date K 6.3 (H) 12/27/2023 Prescribed Potassium Concentrate: HEMODIALYSIS Ordered at: 01/10/24 06 Dialysate concentrate: Potassium 2 mEq/L Calcium 2.5 mEq/L 01/10/2024 6:21 Last Dialysis Prescription released on: Selected bath: Potassium 2 mEq/L Calcium 2.5 mEq/L sevelamer hydrochloride - 800 mg Plan: Managed per protocol Nutrition: Lab Results Component Value Date LABALBU 2.6 (L) 12/27/2023 TP 6.4 12/19/2023 NA 131 (L) 12/27/2023 SERGLU 389 (H) 12/20/2023 HGBA1C 11.6 (H) 11/07/2023 Protein Supplements: This patient does not have an active medication from one of the medication groupers. Plan: Managed per protocol Comments: Overall stable on dialysis, but ongoing issues with anemia (likely decreased responsiveness to EPO in the setting of infection), hyperkalemia, fluid gains, and somnolence. Will increase EPO. Will continue to monitor. Carlota Jin MD documented in this encounter Plan of Treatment Upcoming Encounters Date Type Department Care Team (Late st Contact Info) Description 12/06/2024 6:45 EST Treatment [facility] Dialysi - [place] [address] [place], [place] [address] Carlota Jin MD [address] [place] [address], [facility] 2 [place] [phone] 12/08/2024 6:45 EST Treatment [facility] [place] [address] [place] [id number] Carlota Jin MD 1 [facility], [facility] 2 [place] [phone] 12/11/2024 6:45 EST Treatment [facility] [place] [address] [place], [place] [address] Carlota Jin MD 1 [facility], [address] [phone] 12/13/2024 6:45 EST Treatment [facility] [place] [address] [place] [address] Carlota Jin MD 1 [facility], [address] [phone] 12/15/2024 6:45 EST Treatment [facility] [place] [address] [place], [place] [id number] Carlota Jin MD 1 [facility], [address] [phone] 12/18/2024 6:45 EST Treatment [facility] [place] [address] [place], [place] [id number] Carlota Jin MD 1 [facility], [address] [phone] 12/20/2024 6:45 EST Treatment [facility] [address] [place], [place] [id number] Carlota Jin MD [address] [phone] 12/22/2024 6:45 EST Treatment [facility] [address] [place], [place] [id number] Carlota Jin MD 1 [facility], [address] [phone] 12/25/2024 6:45 EST Treatment [facility] [place] [address] [place], [place] [id number] Carlota Jin MD 1 [facility], [facility] 2 [place] [phone] 12/27/2024 6:45 EST Treatment [facility] [place] [address] [place], [place] [id number] Carlota Jin MD 1 [facility], [facility] 2 [place] [phone] 12/29/2024 6:45 EST Treatment [facility] [address] [place] [address] Carlota Jin MD 1 [facility], [facility] 2 [place] [phone] 01/01/2025 6:45 EDT Treatment [facility] [address] [place], [place] [id number] Carlota Jin MD 1 [facility], [facility] 2 [place] [phone] 01/03/2025 6:45 EDT Treatment [facility] [address] [place], [place] [id number] Carlota Jin MD 1 [facility], [facility] 2 [place] [phone] 01/05/2025 6:45 EDT Treatment [facility] [place] [address] [place], [place] [id number] Carlota Jin MD 1 [facility], [facility] 2 [place] [phone] 01/08/2025 6:45 EDT Treatment [facility] [place] [address] [place], [place] [id number] Carlota Jin MD 1 [facility], [facility] 2 [place] [phone] 01/10/2025 6:45 EDT Treatment [facility] [place] [address] [place], [place] [id number] Carlota Jin MD 1 [facility], [address] [phone] 01/12/2025 6:45 EDT Treatment [facility] [place] [address] [place], [place] [id number] Carlota Jin MD [address] [phone] 01/15/2025 6:45 EDT Treatment [facility] [place] [address] [place], [place] [id number] Carlota Jin MD [address] [phone] 01/17/2025 6:45 EDT Treatment [facility] [place] [address] [place], [place] [phone] Carlota Jin MD 1 [facility], [address] [place] [phone] 01/19/2025 6:45 EDT Treatment [facility] [place] [address] [place], [place] [id number] Carlota Jin MD 1 [facility], [facility] 2 [place] [phone] 01/22/2025 6:45 EDT Treatment [facility] [place] [address] [place], [place] [id number] Carlota Jin MD 1 [facility], [facility] 2 [place] [phone] 01/24/2025 6:45 EDT Treatment [facility] [place] [address] [place], [place] [id number] Carlota Jin MD 1 [facility], [facility] 2 [place] [phone] 01/26/2025 6:45 EDT Treatment [facility] [place] [address] [place] [address] Carlota Jin MD 1 [facility], [facility] 2 [place] [phone] 01/29/2025 6:45 EDT Treatment [facility] [address] [place], [place] [id number] Carlota Jin MD 1 [facility], [facility] 2 [place] [phone] 01/31/2025 6:45 EDT Treatment [facility] [place] [address] [place], [place] [id number] Carlota Jin MD 1 [facility], [facility] 2 [place] [phone] 02/02/2025 6:45 EDT Treatment [facility] [place] [address] [place], [place] [id number] Carlota Jin MD 1 [facility], [facility] 2 [place] [phone] 02/05/2025 6:45 EDT Treatment [facility] [place] [address] [place], [place] [id number] Carlota Jin MD 1 [facility], [address] [phone] 02/07/2025 6:45 EDT Treatment [facility] [place] [address] [place], [place] [id number] Carlota Jin MD 1 [facility], [facility] 2 [place] [phone] 02/09/2025 6:45 EDT Treatment [facility] [place] [address] [place], [place] [id number] Carlota Jin MD 1 [facility], [facility] 2 [place] [phone] 02/12/2025 6:45 EDT Treatment [facility] [place] [address] [place], [place] [id number] Carlota Jin MD 1 [facility], [facility] 2 [place] [phone] 02/14/2025 6:45 EDT Treatment [facility] [place] [address] [place], [place] [id number] Carlota Jin MD 1 [facility], [address] [phone] 02/16/2025 6:45 EDT Treatment [facility] [place] [address] [place], [place] [id number] Carlota Jin MD [address] [phone] 02/19/2025 6:45 EDT Treatment [facility] [place] [address] [place], [place] [id number] Carlota Jin MD [address] [phone] 02/21/2025 6:45 EDT Treatment [facility] [address] [place], [place] [phone] Carlota Jin MD [address] [phone] documented as of this encounter Procedures Procedure Name Priority Date/Time Associated Diagnosis Comments HEMODIALYSIS Routine 01/10/2024 6:21 EDT ESRD (end stage renal disease) ([facility]) documented in this encounter Visit Diagnoses Diagnosis ESRD (end stage renal disease) ([facility])- Primary End stage renal disease Anemia of chronic renal failure, unspecified CKD stage Hypoalbuminemia Other disorders of plasma protein metabolism Secondary hyperparathyroidism (HCC-CMS) Secondary hyperparathyroidism (of renal origin) Diabetic foot infection (HCC-CMS) Type II or unspecified type diabetes mellitus with other specified manifestations, not stated as uncontrolled documented in this encounter Administered Medications Inactive Administered Medications - up to 3 most recent administrations Medication Order MAR Action Action Date Dose Rate Site calcium carbonate (TUMS) tablet 500 mg (200 mg elemental calcium) 2 Tablet 2 Tablet, oral, ONCE IN DIALYSIS, 1 dose, On Wed01/10/24 at 0645, Routine, DialysisIndications:ESRD (end stage renal disease) (HCC-CMS),Secondary hyperparathyroidism (HCC-CMS) Given 01/10/2024 6:46 EDT 2 Tablets epoetin ken (EPOGEN) 20,000 unit/2 mL injection 2,000 Units 2,000 Units, intravenous, ONCE IN DIALYSIS, 1 dose, On Wed01/10/24 at 0645, Routine, DialysisIndications:ESRD (end stage renal disease) ([facility]),Anemia of chronic renal failure, unspecified CKD stage Given 01/10/2024 6:44 EDT 2,000 Units ertapenem (INVANZ) 1,000 mg in sodium chloride (PF) 10 mL Syringe 1,000 mg, intravenous, Administer over 5 Minutes, ONCE IN DIALYSIS, 1 dose, On Wed01/10/24 at 0645, Type of Therapy: Definitive, Based on Cultures, Suspected Indication (Select all that apply): Polymicrobial DM foot infection, RoutineIndications:Diabetic foot infection (HCC-CMS) Given 01/10/2024 10:40 EDT 1,000 mg heparin injection 9,000 Units 9,000 Units, intravenous, ONCE IN DIALYSIS, 1 dose, On Wed01/10/24 at 0645, Routine, Dialysis, Now x1 bolus 4500 units to be given at the beginning of dialysis 1500 units/hour to be given over the course of dialysis (9000 units total). Stop 1 hour prior to end of treatment. To be administered per Policy [id number].Indications:ESRD (end stage renal disease) (HCC-CMS) Given 01/10/2024 6:44 EDT 9,000 Units LiquaCel liquid protein liquid 30 mL 30 mL, oral, ONCE IN DIALYSIS, 1 dose, On Wed01/10/24 at 0645, RoutineIndications:ESRD (end stage renal disease) ([facility]),Hypoalbuminemia Given 01/10/2024 6:44 EDT 30 mL vancomycin 850 mg central line syringe 50 mg/mL 850 mg, central line, Administer over 60 Minutes, ONCE IN DIALYSIS, 1 dose, On 01/10/24 at 0645, Routine, Suspected Indication (Select all that apply): Moderate or Severe DM foot infectionIndications:Diabetic foot infection ([facility]) Given 01/10/2024 9:40 EDT 850 mg documented in this encounter Orders Dialysis Count Last Ordered Date First Orde red Date HEMODIALYSIS 1 01/10/2024 documented in this encounter Care Teams Health Insurance Specialist Relationship Specialty Start Date End Date Ken Greer MD [address] [place] [address] PCP - General 07/07/23 documented as of this encounter
--- OUTSIDE RECORDS SUMMARY | 2024-12-05 12:10 | XMS_ITS | Encounter Summary ---
Author Organization [facility] Address [address] [place] [address] Care Team Providers Care Landing Support Specialist Name Role Phone Ken Greer MD Primary Care Provider [phone] Encounter Details Date Type Department Care Team (Latest Contact Info) Description 01/05/2024 6:[address] [facility] [address] [place], [place] [phone] Carlota Jin MD 1 [facility], Level [address] [place] [phone] ESRD (end stage renal disease) ([facility]) (Primary Dx); Anemia of chronic renal failure, unspecified CKD stage; Hypoalbuminemia; Secondary hyperparathyroidism ([facility]); Diabetic foot infection ([facility]) Social History Tobacco Use [...] - Temperature - - Respiratory Rate 16 01/05/2024 0627 EDT Oxygen Saturation - - Inhaled [...] Flowsheet Note - Marcela Cox RN - 01/05/2024 1354 EDT 01/05/24 1042 Post-Hemodialysis Assessment Total Blood Processed (L) 90.63 Liters On Line Clearance: spKt/V 1.56 spKt/V Dialyzer Clearance Lightly streaked Treatment UFR (ml:kg:hr) 9.75 ml:kg:hr Final Critline Profile (%/hr) -1.81 Final Profile Profile A Critline refill Negative Fluid Removed (L) 3.5 L Post-Dialysis Scale Weight 108.2 kg (238 lb 8.6 oz) Wheelchair Weight 20.8 kg (45 lb 13.7 oz) Prosthesis Weight 0.9 kg (1 lb 15.8 oz) Post-Treatment Weight (kg) 86.5 Treatment Weight Change (kg) 3.4 kg Day Target Weight (kg) 86.5 Post Sitting/Lying BP 149/76 Post Sitting/Lying pulse 57 Temp 36.1 ??C (97 ??F) Temp src [...] 12/06/2024 6:45 EST Treatment [facility] [address] [place], [place] [phone] Carlota Jin MD [address] [place] [phone] 12/08/2024 6:45 EST Treatment [facility] [address] [place], [place] [id number] Carlota Jin MD [address] [place] [address] 2 [place] [phone] 12/11/2024 6:45 EST Treatment [facility] [address] [place], [place] [id number] Carlota Jin MD [address] [place] [address] [phone] 12/13/2024 6:45 EST Treatment [facility] [address] [place], [place] [phone] Carlota Jin MD 1 [facility] [place] [phone] 12/15/2024 6:45 EST Treatment [facility] [place] [address] [place], [place] [phone] Carlota Jin MD 1 [facility] [place] [phone] 12/18/2024 6:45 EST Treatment [facility] [place] [address] [place], [place] [phone] Carlota Jin MD 1 [facility], [facility] [place] [phone] 12/20/2024 6:45 EST Treatment [facility] [place] [address] [place] [address] Carlota Jin MD 1 [facility] [place] [phone] 12/22/2024 6:45 EST Treatment [facility] [place] [address] [place], [place] [id number] Carlota Jin MD 1 [facility] [place] [phone] 12/25/2024 6:45 EST Treatment [facility] [place] [address] [place], [place] [id number] Carlota Jin MD 1 [facility] [place] [phone] 12/27/2024 6:45 EST Treatment [facility] [place] [address] [place], [place] [phone] Carlota Jin MD 1 [facility], [facility] [place] [phone] 12/29/2024 6:45 EST Treatment [facility] [place] [address] [place], [place] [id number] Carlota Jin MD 1 [facility], [facility] [place] [phone] 01/01/2025 6:45 EDT Treatment [facility] [place] [address] [place], [place] [phone] Carlota Jin MD [address] [place] [address], [facility] [place] [phone] 01/03/2025 6:45 EDT Treatment [facility] [place] [address] [place], [place] [id number] Carlota Jin MD 1 [facility], [facility] [place] [phone] 01/05/2025 6:45 EDT Treatment [facility] [place] [address] [place], [place] [id number] Carlota Jin MD 1 [facility], [facility] [place] [phone] 01/08/2025 6:45 EDT Treatment [facility] [place] [address] [place], [place] [phone] Carlota Jin MD 1 [facility], [facility] [place] [phone] 01/10/2025 6:45 EDT Treatment [facility] [place] [address] [place], [place] [id number] Carlota Jin MD 1 [facility] [place] [phone] 01/12/2025 6:45 EDT Treatment [facility] [place] [address] [place] [address] Carlota Jin MD 1 [facility], [address] [phone] 01/15/2025 6:45 EDT Treatment [facility] [place] [address] [place], [place] [id number] Carlota Jin MD 1 [facility], [address] [phone] 01/17/2025 6:45 EDT Treatment [facility] [place] [address] [place] [address] Carlota Jin MD 1 [facility], [facility] 2 [place] [phone] 01/19/2025 6:45 EDT Treatment [facility] [place] [address] [place], [place] [id number] Carlota Jin MD 1 [facility], [facility] [place] [phone] 01/22/2025 6:45 EDT Treatment [facility] [place] [address] [place], [place] [address]85 Carlota Jin MD 1 [facility], [facility] [place] [phone] 01/24/2025 6:45 EDT Treatment [facility] [place] [address] [place], [place] [id number] Carlota Jin MD 1 [facility] [place] [phone] 01/26/2025 6:45 EDT Treatment [facility] [place] [address] [place], [place] [address] Carlota Jin MD 1 [facility] 2 [place] [phone] 01/29/2025 6:45 EDT Treatment [facility] [place] [address] [place], [place] [address]98805 Carlota Jin MD 1 [facility] [place] [phone] 01/31/2025 6:45 EDT Treatment [facility] [place] [address] [place], [place] [id number] Carlota Jin MD 1 [facility] 2 [place] [phone] 02/02/2025 6:45 EDT Treatment [facility] [place] [address] [place], [place] [address] Carlota Jin MD 1 [facility], [address] [phone] 02/05/2025 6:45 EDT Treatment [facility] [place] [address] [place] [address] Carlota Jin MD 1 [facility], [address] [phone] 02/07/2025 6:45 EDT Treatment [facility] [place] [address] [place], [place] [id number] Carlota Jin MD 1 [facility], [address] [phone] 02/09/2025 6:45 EDT Treatment [facility] [address] [place], [place] [id number] Carlota Jin MD 1 [facility], [address] [phone] 02/12/2025 6:45 EDT Treatment [facility] [place] [address] [place], [place] [id number] Carlota Jin MD 1 [facility], [address] [phone] 02/14/2025 6:45 EDT Treatment [facility] [place] [address] [place], [place] [id number] Carlota Jin MD 1 [facility] [place] [phone] 02/16/2025 6:45 EDT Treatment [facility] [place] [address] [place], [place] [id number] Carlota Jin MD 1 [facility], [address] [phone] 02/19/2025 6:45 EDT Treatment [facility] [place] [address] [place], [place] [id number] Carlota Jin MD [address] [place] [address], [address] [phone] 02/21/2025 6:45 EDT Treatment [facility] [place] [address] [place], [place] [phone] Carlota Jin MD [address] [place] [address] [phone] documented as of this encounter Procedures Procedure Name Priority Date/Time Associated Diagnosis Comments COMPLETE BLOOD COUNT Routine 01/05/2024 6:33 EDT ESRD (end stage renal disease) ([facility]) HEMODIALYSIS Routine 01/05/2024 6:27 EDT ESRD (end stage renal disease) ([facility]) documented in this encounter Results * (ABNORMAL) COMPLETE BLOOD COUNT (01/05/2024 6:33 EDT) WBC 11.33(H) 4.00 - 10.40 K/cmm 01/05/2024 22:57 EDT [facility] RBC 2.48(L) 4.36 - 5.78 M/cmm 01/05/2024 22:57 EDT [facility] Hemoglobin 7.2(L) 13.8 - 17.3 g/dL 01/05/2024 22:57 [facility] HCT 23.0(L) 39.5 - 50.2 % 01/05/2024 22:57 [facility] MCV 93 81 - 95 fL 01/05/2024 22:57 [facility] MCH 29.0 27.6 - 33.0 pg 01/05/2024 22:57 [facility] MCHC 31.3(L) 32.8 - 36.4 g/dL 01/05/2024 22:57 [facility] RDW-CV 14.2(H) <14.2 % 01/05/2024 22:57 [facility] RDW-SD 47.8(H) <46.0 fl 01/05/2024 22:57 [facility] PLT 384(H) 141 - 377 K/cmm 01/05/2024 22:57 [facility] MPV 11.4 9.5 - 12.7 fL 01/05/2024 22:57 [facility] Blood VENOUS BLOOD / Unknown Venipuncture / Unknown 01/05/2024 6:33 EDT 01/05/2024 6:33 EDT us Skye Gomez NP HEMATOLOGY & PF4 ORDERABLES Final Result [facility] [address] [place] [address] [phone] documented in this encounter Visit Diagnoses Diagnosis ESRD (end stage renal disease) ([facility])- Primary End stage renal disease Anemia of chronic renal failure, unspecified CKD stage Hypoalbuminemia Other disorders of plasma protein metabolism Secondary hyperparathyroidism ([facility]) Secondary hyperparathyroidism (of renal origin) Diabetic foot infection ([facility]) Type II or unspecified type diabetes mellitus with other specified manifestations, not stated as uncontrolled documented in this encounter Administered Medications Inactive Administered Medications - up to 3 most recent administrations Medication Order MAR Action Action Date Dose Rate Site calcium carbonate (TUMS) tablet 500 mg (200 mg elemental calcium) 2 Tablet 2 Tablet, oral, ONCE IN DIALYSIS, 1 dose, On Wed01/05/24 at 0645, Routine, DialysisIndications:ESRD (end stage renal disease) ([facility]),Secondary hyperparathyroidism ([facility]) Given 01/05/2024 6:51 EDT 2 Tablets epoetin ken (EPOGEN) 20,000 unit/2 mL injection 2,000 Units 2,000 Units, intravenous, ONCE IN DIALYSIS, 1 dose, On Wed01/05/24 at 0645, Routine, DialysisIndications:ESRD (end stage renal disease) ([facility]),Anemia of chronic renal failure, unspecified CKD stage Given 01/05/2024 6:51 EDT 2,000 Units ertapenem (INVANZ) 1,000 mg in sodium chloride (PF) 10 mL Syringe 1,000 mg, intravenous, Administer over 5 Minutes, ONCE IN DIALYSIS, 1 dose, On Wed01/05/24 at 0645, Type of Therapy: Definitive, Based on Cultures, Suspected Indication (Select all that apply): Polymicrobial DM foot infection, RoutineIndications:Diabetic foot infection ([facility]) Given 01/05/2024 10:40 EDT 1,000 mg heparin injection 9,000 Units 9,000 Units, intravenous, ONCE IN DIALYSIS, 1 dose, On Wed01/05/24 at 0645, Routine, Dialysis, Now x1 bolus 4500 units to be given at the beginning of dialysis 1500 units/hour to be given over the course of dialysis (9000 units total). Stop 1 hour prior to end of treatment. To be administered per Policy [id number].Indications:ESRD (end stage renal disease) ([facility]) Given 01/05/2024 6:51 EDT 9,000 Units LiquaCel liquid protein liquid 30 mL 30 mL, oral, ONCE IN DIALYSIS, 1 dose, On Wed01/05/24 at 0645, RoutineIndications:ESRD (end stage renal disease) ([facility]),Hypoalbuminemia Given 01/05/2024 6:51 EDT 30 mL vancomycin 850 mg central line syringe 50 mg/mL 850 mg, central line, Administer over 60 Minutes, ONCE IN DIALYSIS, 1 dose, On Wed01/05/24 at 0645, Routine, Suspected Indication (Select all that apply): Moderate or Severe DM foot infectionIndications:Diabetic foot infection ([facility]) Given 01/05/2024 9:40 EDT 850 mg documented in this encounter Orders Dialysis Count Last Ordered Date First Orde red Date HEMODIALYSIS 1 01/05/2024 documented in this encounter Care Teams Landing Support Specialist Relationship Specialty Start Date End Date Ken Greer MD [address] [place] [address] PCP - General 07/07/23 documented as of this encounter
--- OUTSIDE RECORDS SUMMARY | 2024-12-05 12:10 | XMS_ITS | Encounter Summary ---
Author Organization [facility] Address [address] [place] [address] Care Team Providers Care Suspect Artist Name Role Phone Ken Greer MD Primary Care Provider [phone] Encounter Details Date Type Department Care Team (Late st Contact Info) Description 01/05/2024 Documentation Visit [address] [place] [address] Shelley Eden, RD [address] [place] [address] Social History Tobacco Use Types Packs/Day Years [...] Contact Info) Description 12/06/2024 6:45 EST Treatment [facility] [address] [place], [place] [id number] Carlota Jin MD [address] [place] [address], [facility] [address] [place] [phone] 12/08/2024 6:45 EST Treatment [facility] [address] [place], [place] [id number] Carlota Jin MD [address] [place] [address] 2 [place] [phone] 12/11/2024 6:45 EST Treatment [facility] [address] [place], [place] [id number] Carlota Jin MD [address] [place] [address] 2 [place] [phone] 12/13/2024 6:45 EST Treatment [facility] [address] [place], [place] [id number] Carlota Jin MD 1 [facility] [address] [place] [phone] 12/15/2024 6:45 EST Treatment [facility] [place] [address] [place], [place] [id number] Carlota Jin MD 1 [facility] [address] [place] [phone] 12/18/2024 6:45 EST Treatment [facility] [place] [address] [place] [address] Carlota Jin MD 1 [facility], [facility] [address] [place] [phone] 12/20/2024 6:45 EST Treatment [facility] [place] [address] [place] [address] Carlota Jin MD 1 [facility], [facility] [address] [place] [phone] 12/22/2024 6:45 EST Treatment [facility] [place] [address] [place], [place] [id number] Carlota Jin MD 1 [facility], [facility] [address] [place] [phone] 12/25/2024 6:45 EST Treatment [facility] [place] [address] [place], [place] [id number] Carlota Jin MD 1 [facility], [facility] [address] [place] [phone] 12/27/2024 6:45 EST Treatment [facility] [place] [address] [place], [place] [id number] Carlota Jin MD 1 [facility], [facility] [address] [place] [phone] 12/29/2024 6:45 EST Treatment [facility] [place] [address] [place], [place] [id number] Carlota Jin MD 1 [facility], [facility] [address] [place] [phone] 01/01/2025 6:45 EDT Treatment [facility] [place] [address] [place], [place] [id number] Carlota Jin MD 1 [facility], [facility] [address] [place] [phone] 01/03/2025 6:45 EDT Treatment [facility] [place] [address] [place], [place] [id number] Carlota Jin MD 1 [facility], [facility] [address] [place] [phone] 01/05/2025 6:45 EDT Treatment [facility] [place] [address] [place], [place] [id number] Carlota Jin MD 1 [facility], [facility] [address] [place] [phone] 01/08/2025 6:45 EDT Treatment [facility] [place] [address] [place], [place] [id number] Carlota Jin MD 1 [facility], [facility] 2 [place] [phone] 01/10/2025 6:45 EDT Treatment [facility] [place] [address] [place], [place] [id number] Carlota Jin MD 1 [facility], [facility] 2 [place] [phone] 01/12/2025 6:45 EDT Treatment [facility] [place] [address] [place] [address] Carlota Jin MD 1 [facility], [address] [phone] 01/15/2025 6:45 EDT Treatment [facility] [place] [address] [place], [place] [id number] Carlota Jin MD 1 [facility], [address] [phone] 01/17/2025 6:45 EDT Treatment [facility] [place] [address] [place] [address] Carlota Jin MD 1 [facility], [facility] [address] [place] [phone] 01/19/2025 6:45 EDT Treatment [facility] [place] [address] [place], [place] [id number] Carlota Jin MD 1 [facility], [facility] 2 [place] [phone] 01/22/2025 6:45 EDT Treatment [facility] [place] [address] [place], [place] [address] Carlota Jin MD 1 [facility], [facility] [address] [place] [phone] 01/24/2025 6:45 EDT Treatment [facility] [place] [address] [place], [place] [address]395 Carlota Jin MD 1 [facility], [facility] 2 [place] [phone] 01/26/2025 6:45 EDT Treatment [facility] [place] [address] [place], [place] [address] Carlota Jin MD 1 [facility], [address] [phone] 01/29/2025 6:45 EDT Treatment [facility] [place] [address] [place], [place] [address] Carlota Jin MD 1 [facility], [facility] [address] [place] [phone] 01/31/2025 6:45 EDT Treatment [facility] [place] [address] [place], [place] [id number] Carlota Jin MD 1 [facility], [facility] 2 [place] [phone] 02/02/2025 6:45 EDT Treatment [facility] [place] [address] [place], [place] [address] Carlota Jin MD 1 [facility], [address] [phone] 02/05/2025 6:45 EDT Treatment [facility] [place] [address] [place], [place] [address] [phone] Carlota Jin MD 1 [facility], [address] [phone] 02/07/2025 6:45 EDT Treatment [facility] [place] [address] [place], [place] [address] Carlota Jin MD 1 [facility], [address] [phone] 02/09/2025 6:45 EDT Treatment [facility] [place] [address] [place] [address] Carlota Jin MD 1 [facility], [address] [phone] 02/12/2025 6:45 EDT Treatment [facility] [place] [address] [place], [place] [id number] Carlota Jin MD [address] [phone] 02/14/2025 6:45 EDT Treatment [facility] [place] [address] [place], [place] [address] Carlota Jin MD 1 [facility], [address] [phone] 02/16/2025 6:45 EDT Treatment [facility] [place] [address] [place], [place] [id number] Carlota Jin MD 1 [facility], [facility] 2 [place] [phone] 02/19/2025 6:45 EDT Treatment [facility] [place] [address] [place], [place] [id number] Carlota Jin MD [address] [place] [address], [facility] 2 [place] [phone] 02/21/2025 6:45 EDT Treatment [facility] [place] [address] [place], [place] [id number] Carlota Jin MD [address] [place] [address], [facility] 2 [place] [phone] documented as of this encounter Visit Diagnoses Not on filedocumented in this encounter Care Teams Suspect Artist Relationship Specialty Start Date End Date Ken Greer [place] [address] [place] [address] PCP - General 07/07/23 documented as of this encounter
--- OUTSIDE RECORDS SUMMARY | 2024-12-05 12:10 | XMS_ITS | Encounter Summary ---
Author Organization [facility] Address [address] [place] [address] Care Team Providers Care Waiter/Waitress Take Out Name Role Phone Ken Greer MD Primary Care Provider [phone] Encounter Details Date Type Department Care Team (Late st Contact Info) Description 01/10/2024 Documentation Visit [facility] In[facility] - [address] [id number] Archie Bagley [facility] Social History Tobacco Use Types Packs/Day [...] No 12/20/2023 14:00 Angélica Lazo, VIDYA * Because of a physical, mental, or [...] Progress Notes * Archie Bagley RPH - 01/10/2024 1503 EDT Renal Pharmacist Note: Vancomycin Monitoring 58 yo male receiving Vancomycin 850 mg IV q dialysis for the treatment of a DM foot infection Vancomycin level pre-dialysis on 01/06= 12.5 mcg/mL Assessment and Plan: 1). Vancomycin [...] Treatment [facility] [place] [address] [place] [id number] Carl[facility] Jin MD [facility] [address] [place] [phone] 12/08/2024 6:45 EST Treatment [facility] [place] [address] [place] [address] Carlota Jin MD 1 [facility] [address] [place] [phone] 12/11/2024 6:45 EST Treatment [facility] [place] [address] [place], [place] [id number] Carlota Jin MD 1 [facility] [address] [place] [phone] 12/13/2024 6:45 EST Treatment [facility] [place] [address] [place] [address] Carlota Jin MD 1 [facility], [facility] 2 [place] [phone] 12/15/2024 6:45 EST Treatment [facility] [place] [address] [place], [place] [address] [phone] Carlota Jin MD 1 [facility], [facility] 2 [place] [phone] 12/18/2024 6:45 EST Treatment [facility] [place] [address] [place] [address] Carlota Jin MD 1 [facility], [facility] 2 [place] [phone] 12/20/2024 6:45 EST Treatment [facility] [place] [address] [place], [place] [id number] Carlota Jin MD 1 [facility], [facility] [address] [place] [phone] 12/22/2024 6:45 EST Treatment [facility] [place] [address] [place], [place] [address] Carlota Jin MD 1 [facility], [facility] 2 [place] [phone] 12/25/2024 6:45 EST Treatment [facility] [place] [address] [place], [place] [address] [phone] Carlota Jin MD 1 [facility], [address] [phone] 12/27/2024 6:45 EST Treatment [facility] [place] [address] [place], [place] [id number] Carlota Jin MD 1 [facility], [address] [phone] 12/29/2024 6:45 EST Treatment [facility] [place] [address] [place], [place] [id number] Carlota Jin MD 1 [facility], [address] [phone] 01/01/2025 6:45 EDT Treatment [facility] [place] [address] [place], [place] [id number] Carlota Jin MD 1 [facility], [address] [phone] 01/03/2025 6:45 EDT Treatment [facility] [place] [address] [place], [place] [id number] Carlota Jin MD 1 [facility], [facility] 2 [place] [phone] 01/05/2025 6:45 EDT Treatment [facility] [place] [address] [place], [place] [id number] Carlota Jin MD 1 [facility], [facility] 2 [place] [phone] 01/08/2025 6:45 EDT Treatment [facility] [place] [address] [place], [place] [id number] Carlota Jin MD 1 [facility], [facility] 2 [place] [phone] 01/10/2025 6:45 EDT Treatment [facility] [place] [address] [place] [address] Carlota Jin MD [address] [place] [address], [facility] 2 [place] [phone] 01/12/2025 6:45 EDT Treatment [facility] [place] [address] [place], [place] [id number] Carlota Jin MD 1 [facility], [facility] 2 [place] [phone] 01/15/2025 6:45 EDT Treatment [facility] [place] [address] [place], [place] [id number] Carlota Jin MD [address] [place] [address], [facility] 2 [place] [phone] 01/17/2025 6:45 EDT Treatment [facility] [place] [address] [place], [place] [address] Carlota Jin MD 1 [facility], [facility] 2 [place] [phone] 01/19/2025 6:45 EDT Treatment [facility] [place] [address] [place], [place] [id number] Carlota Jin MD 1 [facility], [facility] 2 [place] [phone] 01/22/2025 6:45 EDT Treatment [facility] [place] [address] [place], [place] [id number] Carlota Jin MD 1 [facility], [facility] 2 [place] [phone] 01/24/2025 6:45 EDT Treatment [facility] [place] [address] [place], [place] [id number] Carlota Jin MD 1 [facility], [address] [phone] 01/26/2025 6:45 EDT Treatment [facility] [place] [address] [place], [place] [id number] Carlota Jin MD 1 [facility], [facility] 2 [place] [phone] 01/29/2025 6:45 EDT Treatment [facility] [place] [address] [place], [place] [id number] Carlota Jin MD 1 [facility] 2 [place] [phone] 01/31/2025 6:45 EDT Treatment [facility] [place] [address] [place], [place] [address]385 Carlota Jin MD 1 [facility], [facility] 2 [place] [phone] 02/02/2025 6:45 EDT Treatment [facility] [place] [address] [place], [place] [id number] Carlota Jin MD 1 [facility], [facility] 2 [place] [phone] 02/05/2025 6:45 EDT Treatment [facility] [place] [address] [place], [place] [id number] Carlota Jin MD 1 [facility], [facility] 2 [place] [phone] 02/07/2025 6:45 EDT Treatment [facility] [place] [address] [place] [address] Carlota Jin MD 1 [facility], [facility] 2 [place] [phone] 02/09/2025 6:45 EDT Treatment [facility] [address] [place], [place] [id number] Carlota Jin MD 1 [facility], [facility] 2 [place] [phone] 02/12/2025 6:45 EDT Treatment [facility] [place] [address] [place], [place] [id number] Carlota Jin MD 1 [facility], [address] [phone] 02/14/2025 6:45 EDT Treatment [facility] [place] [address] [place], [place] [id number] Carlota Jin MD [address] [place] [phone] 02/16/2025 6:45 EDT Treatment [facility] [place] [address] [place], [place] [id number] Carlota Jin MD [address] [place] [address], [address] [phone] 02/19/2025 6:45 EDT Treatment [facility] [place] [address] [place], [place] [id number] Carlota Jin MD [address] [place] [phone] 02/21/2025 6:45 EDT Treatment [facility] [place] [address] [place], [place] [id number] Carlota Jin MD [address] [place] [phone] documented as of this encounter Visit Diagnoses Not on filedocumented in this encounter Care Teams Waiter/Waitress Take Out Relationship Specialty Start Date End Date Ken Greer MD [address] [place] [address] PCP - General 07/07/23 documented as of this encounter
--- OUTSIDE RECORDS SUMMARY | 2024-12-05 12:10 | XMS_ITS | Encounter Summary ---
Author Organization [facility] Address [address] [place] [address] Care Team Providers Care Panelbeater Name Role Phone Ken Greer MD Primary Care Provider [phone] Encounter Details Date Type Department Care Team (Late st Contact Info) Description 01/10/2024 Documentation Visit [address] [place], [place] [address] Melissa Crespo, RN Social History Tobacco Use [...] [facility] [place] [address] [place], [place] [id number] Carlota Jin MD 1 [facility], [facility] 2 [place] [phone] 12/08/2024 6:45 EST Treatment [facility] [place] [address] [place], [place] [id number] Carlota Jin MD 1 [facility] 2 [place] [phone] 12/11/2024 6:45 EST Treatment [facility] [place] [address] [place], [place] [id number] Carlota Jin MD 1 [facility], [facility] 2 [place] [phone] 12/13/2024 6:45 EST Treatment [facility] [address] [place], [place] [phone] Carlota Jin MD 1 [facility], [facility] 2 [place] [phone] 12/15/2024 6:45 EST Treatment [facility] [place] [address] [place], [place] [id number] Carlota Jin MD 1 [facility], [facility] 2 [place] [phone] 12/18/2024 6:45 EST Treatment [facility] [place] [address] [place], [place] [id number] Carlota Jin MD 1 [facility], [facility] 2 [place] [phone] 12/20/2024 6:45 EST Treatment [facility] [place] [address] [place], [place] [id number] Carlota Jin MD 1 [facility], [facility] 2 [place] [phone] 12/22/2024 6:45 EST Treatment [facility] [address] [place], [place] [phone] Carlota Jin MD 1 [facility], [facility] 2 [place] [phone] 12/25/2024 6:45 EST Treatment [facility] [address] [place], [place] [phone] Carlota Jin MD 1 [facility], [facility] 2 [place] [phone] 12/27/2024 6:45 EST Treatment [facility] [place] [address] [place], [place] [phone] Carlota Jin MD 1 [facility], [facility] 2 [place] [phone] 12/29/2024 6:45 EST Treatment [facility] [place] [address] [place], [place] [phone] Carlota Jin MD 1 [facility], [address] [phone] 01/01/2025 6:45 EDT Treatment [facility] [place] [address] [place], [place] [phone] Carlota Jin MD 1 [facility], [address] [phone] 01/03/2025 6:45 EDT Treatment [facility] [place] [address] [place], [place] [phone] Carlota Jin MD 1 [facility], [address] [phone] 01/05/2025 6:45 EDT Treatment [facility] [place] [address] [place], [place] [phone] Carlota Jin MD [address] [place] [address], [facility] 2 [place] [phone] 01/08/2025 6:45 EDT Treatment [facility] [place] [address] [place], [place] [phone] Carlota Jin MD 1 [facility], Level [address] [place] [phone] 01/10/2025 6:45 EDT Treatment [facility] [place] [address] [place], [place] [address] Carlota Jin MD 1 [facility], [facility] 2 [place] [phone] 01/12/2025 6:45 EDT Treatment [facility] [place] [address] [place], [place] [phone] Carlota Jin MD 1 [facility], [facility] 2 [place] [phone] 01/15/2025 6:45 EDT Treatment [facility] [place] [address] [place], [place] [phone] Carlota Jin MD 1 [facility], [facility] 2 [place] [phone] 01/17/2025 6:45 EDT Treatment [facility] [address] [place], [place] [phone] Carlota Jin MD 1 [facility], [facility] 2 [place] [phone] 01/19/2025 6:45 EDT Treatment [facility] [address] [place], [place] [phone] Carlota Jin MD 1 [facility], [facility] 2 [place] [phone] 01/22/2025 6:45 EDT Treatment [facility] [place] [address] [place], [place] [phone] Carlota Jin MD 1 [facility], [facility] 2 [place] [phone] 01/24/2025 6:45 EDT Treatment [facility] [place] [address] [place], [place] [phone] Carlota Jin MD 1 [facility], [facility] 2 [place] [phone] 01/26/2025 6:45 EDT Treatment [facility] [place] [address] [place], [place] [phone] Carlota Jin MD 1 [facility], [facility] 2 [place] [phone] 01/29/2025 6:45 EDT Treatment [facility] [place] [address] [place], [place] [phone] Carlota Jin MD 1 [facility], [facility] 2 [place] [phone] 01/31/2025 6:45 EDT Treatment [facility] [place] [address] [place], [place] [phone] Carlota Jin MD 1 [facility], [facility] 2 [place] [phone] 02/02/2025 6:45 EDT Treatment [facility] [place] [address] [place], [place] [phone] Carlota Jin MD 1 [facility], [facility] 2 [place] [phone] 02/05/2025 6:45 EDT Treatment [facility] [place] [address] [place], [place] [id number] Carlota Jin MD 1 [facility], [facility] 2 [place] [phone] 02/07/2025 6:45 EDT Treatment [facility] [place] [address] [place] [address] Carlota Jin MD 1 [facility], [address] [phone] 02/09/2025 6:45 EDT Treatment [facility] [place] [address] [place], [place] [phone] Carlota Jin MD 1 [facility], [address] [phone] 02/12/2025 6:45 EDT Treatment [facility] [place] [address] [place] [address] Carlota Jin MD 1 [facility], [facility] 2 [place] [phone] 02/14/2025 6:45 EDT Treatment [facility] [place] [address] [place], [place] [phone] Carlota Jin MD 1 [facility], [facility] 2 [place] [phone] 02/16/2025 6:45 EDT Treatment [facility] [address] [place], [place] [phone] Carlota Jin MD 1 [facility], [facility] 2 [place] [phone] 02/19/2025 6:45 EDT Treatment [facility] [address] [place], [place] [phone] Carlota Jin MD [address] [place] [address], [facility] 2 [place] [phone] 02/21/2025 6:45 EDT Treatment [facility] [address] [place], [place] [phone] Carlota Jin MD [address] [place] [address], [facility] 2 [place] [phone] documented as of this encounter Visit Diagnoses Not on filedocumented in this encounter Care Teams Panelbeater Relationship Specialty Start Date End Date [place] [address] PCP - General 07/07/23 documented as of this encounter
--- OUTSIDE RECORDS SUMMARY | 2024-12-05 12:10 | XMS_ITS | Encounter Summary ---
Author Organization [facility] Address [address] [place] [address] Care Team Providers Care Retail Interior Designer Name Role Phone Ken Greer MD Primary Care Provider [phone] Encounter Details Date Type Department Care Team (Latest Contact Info) Description 01/07/2024 6:45 EDT Treatment [facility] [address] [place], [place] [phone] Carlota Jin MD 1 [facility], Level [address] [place] [phone] ESRD (end stage renal disease) ([facility]) (Primary Dx); Anemia of chronic renal failure, unspecified CKD stage; Hypoalbuminemia; Secondary hyperparathyroidism ([facility]); Diabetic foot infection ([facility]) Social History Tobacco Use Types [...] - Temperature - - Respiratory Rate 16 01/07/2024 0639 EDT Oxygen Saturation - - Inhaled Oxygen Concentration - - Weight 88.1 kg (194 lb 3.6 oz) 01/07/2024 0639 E DT Height - - Body Mass Index 27.87 12/20/2023 2202 EST documented in this encounter [...] Flowsheet Note - Marcela Cox RN - 01/07/2024 1413 EDT 01/07/24 1125 Post-Hemodialysis Assessment Total Blood Processed (L) 91.62 Liters On Line Clearance: spKt/V 1.34 spKt/V Dialyzer Clearance Lightly streaked Treatment UFR (ml:kg:hr) 7.36 ml:kg:hr Final Critline Profile (%/hr) -1.01 Final Profile Profile A Fluid Removed (L) 2.5 L Post-Dialysis Scale Weight 85.6 kg (188 lb 11.4 oz) Wheelchair Weight 0 kg (0 lb) Prosthesis Weight 0 kg (0 lb) Post-Treatment Weight (kg) 85.6 Treatment Weight Change (kg) 2.5 kg Day Target Weight (kg) 86.1 Post Sitting/Lying BP 152/68 Post Sitting/Lying pulse 58 Post Standing BP 141/69 Post Standing Pulse 64 Temp 36.2 ??C (97.2 ??F) Temp src Temporal Post access assessment Bruit present: Yes Thrill Present AVF/AFG Hemostasis achieved Yes Note 10 min hold both sites, venous rebled, additional 10 min venous hold with good effect Orientation Alert and Oriented x3 Yes Time Yes Place Yes Person Yes Cooperative Yes Disoriented No Discharge Ambulation Methods Departs via w/c Wrap up items Patient Response to Treatment Tolerated tx well. Removed 2.5L UF goal without difficulty. Comments No issues during tx, no concerns voiced post tx. * Dialysis Rounding - Skye Gomez NP - 01/07/2024 0645 EDT Dialysis Provider's Routine Assessment The visit was conducted via telehealth (audio/video) between the [facility] [facility] and the provider from their Home Office. The interaction was assisted by [employer]. The patient has no complaints and no [...] care. The location of the patient : [place] dialysis [facility]; Patient location state: Visit Location State: [place] The location of the provider: Office; Provider location state: Visit Location State: [place] Gerson Bruner was seen and examined as appropriate during Dialysis. Pertinent lab results were reviewed. Changes since last visit: None Changes to current prescriptions/orders: None Diabetic foot wound on antibiotics, pt states I am not sure it is healing, following with primarycare. Skye Gomez NP documented in this encounter Plan of Treatment Upcoming Encounters Date Type Department Care Team (Late st Contact Info) Description 12/06/2024 6:45 EST Treatment [facility] [place] [address] [place], [place] [phone] Carlota Jin MD 1 [facility], [address] [phone] 12/08/2024 6:45 EST Treatment [facility] [place] [address] [place], [place] [id number] Carlota Jin MD [address] [phone] 12/11/2024 6:45 EST Treatment [facility] [place] [address] [place], [place] [phone] Carlota Jin MD [address] [phone] 12/13/2024 6:45 EST Treatment [facility] [place] [address] [place], [place] [phone] Carlota Jin MD [address] [phone] 12/15/2024 6:45 EST Treatment [facility] [place] [address] [place], [place] [id number] Carlota Jin MD [address] [phone] 12/18/2024 6:45 EST Treatment [facility] [place] [address] [place], [place] [phone] Carlota Jin MD 1 [facility], [facility] 2 [place] [phone] 12/20/2024 6:45 EST Treatment [facility] [place] [address] [place], [place] [phone] Carlota Jin MD 1 [facility], [facility] 2 [place] [phone] 12/22/2024 6:45 EST Treatment [facility] [place] [address] [place], [place] [phone] Carlota Jin MD 1 [facility], [facility] 2 [place] [phone] 12/25/2024 6:45 EST Treatment [facility] [address] [place], [place] [phone] Carlota Jin MD 1 [facility], [facility] 2 [place] [phone] 12/27/2024 6:45 EST Treatment [facility] [address] [place], [place] [phone] Carlota Jin MD 1 [facility], [facility] 2 [place] [phone] 12/29/2024 6:45 EST Treatment [facility] [address] [place], [place] [phone] Carlota Jin MD 1 [facility], [facility] 2 [place] [phone] 01/01/2025 6:45 EDT Treatment [facility] [place] [address] [place] [address] Carlota Jin MD 1 [facility], [facility] 2 [place] [phone] 01/03/2025 6:45 EDT Treatment [facility] [place] [address] [place], [place] [phone] Carlota Jin MD 1 [facility], [address] [phone] 01/05/2025 6:45 EDT Treatment [facility] [place] [address] [place], [place] [phone] Carlota Jin MD 1 [facility], [address] [phone] 01/08/2025 6:45 EDT Treatment [facility] [place] [address] [place], [place] [phone] Carlota Jin MD 1 [facility], [facility] 2 [place] [phone] 01/10/2025 6:45 EDT Treatment [facility] [place] [address] [place], [place] [phone] Carlota Jin MD 1 [facility], [facility] 2 [place] [phone] 01/12/2025 6:45 EDT Treatment [facility] [place] [address] [place], [place] [phone] Carlota Jin MD 1 [facility], [facility] 2 [place] [phone] 01/15/2025 6:45 EDT Treatment [facility] [place] [address] [place], [place] [phone] Carlota Jin MD 1 [facility], [address] [phone] 01/17/2025 6:45 EDT Treatment [facility] [place] [address] [place], [place] [id number] Carlota Jin MD [address] [place] [address], [address] [phone] 01/19/2025 6:45 EDT Treatment [facility] [place] [address] [place], [place] [phone] Carlota Jin MD [address] [place] [address], [facility] 2 [place] [phone] 01/22/2025 6:45 EDT Treatment [facility] [place] [address] [place], [place] [id number] Carlota Jin MD 1 [facility], [facility] 2 [place] [phone] 01/24/2025 6:45 EDT Treatment [facility] [place] [address] [place], [place] [address] Carlota Jin MD 1 [facility], [facility] 2 [place] [phone] 01/26/2025 6:45 EDT Treatment [facility] [place] [address] [place], [place] [phone] Carlota Jin MD 1 [facility], [facility] 2 [place] [phone] 01/29/2025 6:45 EDT Treatment [facility] [place] [address] [place], [place] [phone] Carlota Jin MD 1 [facility], [facility] 2 [place] [phone] 01/31/2025 6:45 EDT Treatment [facility] [place] [address] [place], [place] [phone] Carlota Jin MD 1 [facility], [facility] 2 [place] [phone] 02/02/2025 6:45 EDT Treatment [facility] [place] [address] [place], [place] [phone] Carlota Jin MD 1 [facility], [facility] 2 [place] [phone] 02/05/2025 6:45 EDT Treatment [facility] [place] [address] [place], [place] [phone] Carlota Jin MD 1 [facility], [facility] 2 [place] [phone] 02/07/2025 6:45 EDT Treatment [facility] [place] [address] [place], [place] [phone] Carlota Jin MD 1 [facility], [facility] 2 [place] [phone] 02/09/2025 6:45 EDT Treatment [facility] [place] [address] [place], [place] [id number] Carlota Jin MD 1 [facility], [facility] 2 [place] [phone] 02/12/2025 6:45 EDT Treatment [facility] [place] [address] [place], [place] [phone] Carlota Jin MD 1 [facility], [facility] 2 [place] [phone] 02/14/2025 6:45 EDT Treatment [facility] [address] [place] [address] Carlota Jin MD 1 [facility], [facility] 2 [place] [phone] 02/16/2025 6:45 EDT Treatment [facility] [address] [place], [place] [phone] Carlota Jin MD 1 [facility], [facility] 2 [place] [phone] 02/19/2025 6:45 EDT Treatment [facility] [place] [address] [place] [address] Carlota Jin MD 1 [facility], Level [address] [place] [phone] 02/21/2025 6:45 EDT Treatment [facility] [place] [address] [place] [address] Carlota Jin MD 1 [facility], [facility] [address] [place] [phone] documented as of this encounter Procedures Procedure Name Priority Date/Time Associated Diagnosis Comments VANCOMYCIN, RANDOM Routine 01/07/2024 6:46 EDT Diabetic foot infection ([facility]) HEMODIALYSIS Routine 01/07/2024 6:39 EDT ESRD (end stage renal disease) ([facility]) documented in this encounter Results * VANCOMYCIN, RANDOM (01/07/2024 6:46 EDT) Vancomycin Random 12.5 See Note ??g/mL 01/07/2024 22:14 EDT [facility] Comment: NOTE: Reference Ranges: Trough: ??10.0 - 20.0 ug/mL Peak: ??25.0 - 50.0 ug/mL Blood VENOUS BLOOD / Unknown Venipuncture / Unknown 01/07/2024 6:46 EDT 01/07/2024 6:46 EDT us Carlota Jin MD CHEMISTRY & BLOOD GAS ORD ERABLES Final Result [facility] [address] [place] [address] documented in this encounter Visit Diagnoses Diagnosis ESRD (end stage renal disease) ([facility])- Primary End stage renal disease Anemia of chronic renal failure, unspecified CKD stage Hypoalbuminemia Other disorders of plasma protein metabolism Secondary hyperparathyroidism ([facility]) Secondary hyperparathyroidism (of renal origin) Diabetic foot infection ([facility]) Type II or unspecified type diabetes mellitus with other specified manifestations, not stated as uncontrolled documented in this encounter Administered Medications Inactive Administered Medications - up to 3 most recent administrations Medication Order MAR Action Action Date Dose Rate Site calcium carbonate (TUMS) tablet 500 mg (200 mg elemental calcium) 2 Tablet 2 Tablet, oral, ONCE IN DIALYSIS, 1 dose, On Wed01/07/24 at 0700, Routine, DialysisIndications:ESRD (end stage renal disease) ([facility]),Secondary hyperparathyroidism ([facility]) Given 01/07/2024 7:07 EDT 2 Tablets epoetin ken (EPOGEN) 20,000 unit/2 mL injection 2,000 Units 2,000 Units, intravenous, ONCE IN DIALYSIS, 1 dose, On Wed01/07/24 at 0700, Routine, DialysisIndications:ESRD (end stage renal disease) ([facility]),Anemia of chronic renal failure, unspecified CKD stage Given 01/07/2024 7:07 EDT 2,000 Units ertapenem (INVANZ) 1,000 mg in sodium chloride (PF) 10 mL Syringe 1,000 mg, intravenous, Administer over 5 Minutes, ONCE IN DIALYSIS, 1 dose, On Wed01/07/24 at 0700, Type of Therapy: Definitive, Based on Cultures, Suspected Indication (Select all that apply): Polymicrobial DM foot infection, RoutineIndications:Diabetic foot infection ([facility]) Given 01/07/2024 10:50 EDT 1,000 mg heparin injection 9,000 Units 9,000 Units, intravenous, ONCE IN DIALYSIS, 1 dose, On Wed01/07/24 at 0700, Routine, Dialysis, Now x1 bolus 4500 units to be given at the beginning of dialysis 1500 units/hour to be given over the course of dialysis (9000 units total). Stop 1 hour prior to end of treatment. To be administered per Policy [id number].Indications:ESRD (end stage renal disease) ([facility]) Given 01/07/2024 7:07 EDT 9,000 Units LiquaCel liquid protein liquid 30 mL 30 mL, oral, ONCE IN DIALYSIS, 1 dose, On Wed01/07/24 at 0700, RoutineIndications:ESRD (end stage renal disease) ([facility]),Hypoalbuminemia Given 01/07/2024 7:07 EDT 30 mL vancomycin 850 mg central line syringe 50 mg/mL 850 mg, central line, Administer over 60 Minutes, ONCE IN DIALYSIS, 1 dose, On Wed01/07/24 at 0700, Routine, Suspected Indication (Select all that apply): Moderate or Severe DM foot infectionIndications:Diabetic foot infection ([facility]) Given 01/07/2024 9:50 EDT 850 mg documented in this encounter Orders Dialysis Count Last Ordered Date First Orde red Date HEMODIALYSIS 1 01/07/2024 documented in this encounter Care Teams Retail Interior Designer Relationship Specialty Start Date End Date Ken Greer MD [address] [place] [address] PCP - General 07/07/23 documented as of this encounter
--- OUTSIDE RECORDS SUMMARY | 2024-12-05 12:10 | XMS_ITS | Encounter Summary ---
Author Organization [facility] Address [address] [place] [address] Care Team Providers Care Building Attendant Name Role Phone Ken Greer MD Primary Care Provider [phone] Encounter Details Date Type Department Care Team (Latest Contact Info) Description 01/14/2024 6:45 EDT Treatment [facility] [address] [place], [place] [id number] Carlota Jin MD 1 [facility], Level [address] [place] [phone] ESRD (end stage renal disease) ([facility]) (Primary Dx); Anemia of chronic renal failure, unspecified CKD stage; Hypoalbuminemia; Secondary hyperparathyroidism ([facility]); Diabetic foot infection ([facility]) Social History Tobacco Use Types Packs/Day [...] - Temperature - - Respiratory Rate 16 01/14/2024 0631 EDT Oxygen Saturation - - Inhaled Oxygen Concentration - - Weight 88.6 kg (195 lb 5.2 oz) 01/14/2024 0631 E DT Height - - Body [...] Flowsheet Note - Marcela Cox RN - 01/14/2024 1331 EDT 01/14/24 1044 Post-Hemodialysis Assessment Total Blood Processed (L) 90.62 Liters On Line Clearance: spKt/V 1.53 spKt/V Dialyzer Clearance Lightly streaked Treatment UFR (ml:kg:hr) 7.53 ml:kg:hr Critline refill Not done Fluid Removed (L) 2.6 L Post-Dialysis Scale Weight 106.9 kg (235 lb 10.8 oz) Wheelchair Weight 20.9 kg (46 lb 1.2 oz) Prosthesis Weight 0 kg (0 lb) Post-Treatment Weight (kg) 86 Treatment Weight Change (kg) 2.6 kg Day Target Weight (kg) 86.5 Post Sitting/Lying BP 155/80 Post Sitting/Lying pulse 57 Temp 36.4 ??C (97.5 ??F) Temp src [...] 12/06/2024 6:45 EST Treatment [facility] [address] [place], [place] [id number] Carlota Jin MD [address] [place] [phone] 12/08/2024 6:45 EST Treatment [facility] [address] [place], [place] [id number] Carlota Jin MD [address] [place] [phone] 12/11/2024 6:45 EST Treatment [facility] [address] [place], [place] [id number] Carlota Jin MD [address] [place] [phone] 12/13/2024 6:45 EST Treatment [facility] [address] [place] [id number] Carlota Jin MD 1 [facility], [facility] [address] [place] [phone] 12/15/2024 6:45 EST Treatment [facility] [place] [address] [place], [place] [id number] Carlota Jin MD 1 [facility], [facility] [address] [place] [phone] 12/18/2024 6:45 EST Treatment [facility] [place] [address] [place], [place] [id number] Carlota Jin MD 1 [facility], [facility] [address] [place] [phone] 12/20/2024 6:45 EST Treatment [facility] [place] [address] [place], [place] [id number] Carlota Jin MD 1 [facility], [facility] [address] [place] [phone] 12/22/2024 6:45 EST Treatment [facility] [address] [place], [place] [id number] Carlota Jin MD 1 [facility], [facility] [address] [place] [phone] 12/25/2024 6:45 EST Treatment [facility] [place] [address] [place], [place] [id number] Carlota Jin MD 1 [facility], [facility] [address] [place] [phone] 12/27/2024 6:45 EST Treatment [facility] [place] [address] [place], [place] [id number] Carlota Jin MD 1 [facility], [facility] [address] [place] [phone] 12/29/2024 6:45 EST Treatment [facility] [place] [address] [place], [place] [id number] Carlota Jin MD 1 [facility], [facility] [address] [place] [phone] 01/01/2025 6:45 EDT Treatment [facility] [place] [address] [place] [address] Carlota Jin MD 1 [facility], [address] [phone] 01/03/2025 6:45 EDT Treatment [facility] [place] [address] [place], [place] [id number] Carlota Jin MD 1 [facility], [facility] [address] [place] [phone] 01/05/2025 6:45 EDT Treatment [facility] [place] [address] [place], [place] [id number] Carlota Jin MD 1 [facility], [facility] [address] [place] [phone] 01/08/2025 6:45 EDT Treatment [facility] [place] [address] [place], [place] [id number] Carlota Jin MD 1 [facility], [facility] [address] [place] [phone] 01/10/2025 6:45 EDT Treatment [facility] [place] [address] [place] [address] Carlota Jin MD 1 [facility], [facility] 2 [place] [phone] 01/12/2025 6:45 EDT Treatment [facility] [place] [address] [place] [address] Carlota Jin MD 1 [facility], [facility] [address] [place] [phone] 01/15/2025 6:45 EDT Treatment [facility] [place] [address] [place] [address] Carlota Jin MD 1 [facility], [facility] [address] [place] [phone] 01/17/2025 6:45 EDT Treatment [facility] [place] [address] [place] [address] Carlota Jin MD 1 [facility], [facility] [address] [place] [phone] 01/19/2025 6:45 EDT Treatment [facility] [place] [address] [place], [place] [id number] Carlota Jin MD 1 [facility], [facility] [address] [place] [phone] 01/22/2025 6:45 EDT Treatment [facility] [place] [address] [place], [place] [id number] Carlota Jin MD 1 [facility], [facility] 2 [place] [phone] 01/24/2025 6:45 EDT Treatment [facility] [place] [address] [place], [place] [id number] Carlota Jin MD 1 [facility], [facility] 2 [place] [phone] 01/26/2025 6:45 EDT Treatment [facility] [place] [address] [place], [place] [id number] Carlota Jin MD 1 [facility], [facility] 2 [place] [phone] 01/29/2025 6:45 EDT Treatment [facility] [place] [address] [place], [place] [address] Carlota Jin MD 1 [facility], [facility] 2 [place] [phone] 01/31/2025 6:45 EDT Treatment [facility] [place] [address] [place], [place] [id number] Carlota Jin MD 1 [facility], [facility] 2 [place] [phone] 02/02/2025 6:45 EDT Treatment [facility] [place] [address] [place], [place] [address] Carlota Jin MD 1 [facility], [facility] 2 [place] [phone] 02/05/2025 6:45 EDT Treatment [facility] [place] [address] [place], [place] [id number] Carlota Jin MD 1 [facility], [address] [phone] 02/07/2025 6:45 EDT Treatment [facility] [place] [address] [place], [place] [id number] Carlota Jin MD 1 [facility], [address] [phone] 02/09/2025 6:45 EDT Treatment [facility] [place] [address] [place], [place] [id number] Carlota Jin MD [address] [phone] 02/12/2025 6:45 EDT Treatment [facility] [place] [address] [place], [place] [id number] Carlota Jin MD [address] [phone] 02/14/2025 6:45 EDT Treatment [facility] [place] [address] [place], [place] [id number] Carlota Jin MD 1 [facility], [facility] [address] [place] [phone] 02/16/2025 6:45 EDT Treatment [facility] [place] [address] [place], [place] [id number] Carlota Jin MD 1 [facility], [facility] [address] [place] [phone] 02/19/2025 6:45 EDT Treatment [facility] [place] [address] [place], [place] [id number] Carlota Jin MD 1 [facility], [address] [phone] 02/21/2025 6:45 EDT Treatment [facility] [place] [address] [place], [place] [id number] Carlota Jin MD 1 [facility], [address] [phone] documented as of this encounter Procedures Procedure Name Priority Date/Time Associated Diagnosis Comments VANCOMYCIN, RANDOM Routine 01/14/2024 6:36 EDT ESRD (end stage renal disease) ([facility]) HEMODIALYSIS Routine 01/14/2024 6:31 EDT ESRD (end stage renal disease) ([facility]) documented in this encounter Results * VANCOMYCIN, RANDOM (01/14/2024 6:36 EDT) Vancomycin Random 12.5 See Note ??g/mL 01/14/2024 21:25 EDT [facility] Comment: NOTE: Reference Ranges: Trough: ??10.0 - 20.0 ug/mL Peak: ??25.0 - 50.0 ug/mL Blood VENOUS BLOOD / Unknown Venipuncture / Unknown 01/14/2024 6:36 EDT 01/14/2024 6:36 EDT Carlota Jin MD CHEMISTRY & BLOOD GAS ORD ERABLES Final Result [facility] [address] [place] [phone] documented in this encounter Visit Diagnoses Diagnosis ESRD (end stage renal disease) ([facility])- Primary End stage renal disease Anemia of chronic renal failure, unspecified CKD stage Hypoalbuminemia Other disorders of plasma protein metabolism Secondary hyperparathyroidism ([facility]) Secondary hyperparathyroidism (of renal origin) Diabetic foot infection ([facility]) Type II or unspecified type diabetes mellitus with other specified manifestations, not stated as uncontrolled documented in this encounter Administered Medications Inactive Administered Medications - up to 3 most recent administrations Medication Order MAR Action Action Date Dose Rate Site calcium carbonate (TUMS) tablet 500 mg (200 mg elemental calcium) 2 Tablet 2 Tablet, oral, ONCE IN DIALYSIS, 1 dose, On Wed01/14/24 at 0700, Routine, DialysisIndications:ESRD (end stage renal disease) ([facility]),Secondary hyperparathyroidism ([facility]) Given 01/14/2024 6:57 EDT 2 Tablets epoetin ken (EPOGEN) 20,000 unit/2 mL injection 3,000 Units 3,000 Units, intravenous, ONCE IN DIALYSIS, 1 dose, On Wed01/14/24 at 0700, Routine, DialysisIndications:ESRD (end stage renal disease) ([facility]),Anemia of chronic renal failure, unspecified CKD stage Given 01/14/2024 6:57 EDT 3,000 Units ertapenem (INVANZ) 1,000 mg in sodium chloride (PF) 10 mL Syringe 1,000 mg, intravenous, Administer over 5 Minutes, ONCE IN DIALYSIS, 1 dose, On Wed01/14/24 at 0700, Type of Therapy: Definitive, Based on Cultures, Suspected Indication (Select all that apply): Polymicrobial DM foot infection, RoutineIndications:Diabetic foot infection (HCC-CMS) Given 01/14/2024 10:40 EDT 1,000 mg heparin injection 9,000 Units 9,000 Units, intravenous, ONCE IN DIALYSIS, 1 dose, On Wed01/14/24 at 0700, Routine, Dialysis, Now x1 bolus 4500 units to be given at the beginning of dialysis 1500 units/hour to be given over the course of dialysis (9000 units total). Stop 1 hour prior to end of treatment. To be administered per Policy [id number].Indications:ESRD (end stage renal disease) ([facility]) Given 01/14/2024 6:57 EDT 9,000 Units LiquaCel liquid protein liquid 30 mL 30 mL, oral, ONCE IN DIALYSIS, 1 dose, On Wed01/14/24 at 0700, RoutineIndications:ESRD (end stage renal disease) ([facility]),Hypoalbuminemia Given 01/14/2024 6:57 EDT 30 mL vancomycin 850 mg central line syringe 50 mg/mL 850 mg, central line, Administer over 60 Minutes, ONCE IN DIALYSIS, 1 dose, On Wed01/14/24 at 0700, Routine, Suspected Indication (Select all that apply): Moderate or Severe DM foot infectionIndications:Diabetic foot infection ([facility]) Given 01/14/2024 9:40 EDT 850 mg documented in this encounter Orders Dialysis Count Last Ordered Date First Orde red Date HEMODIALYSIS 1 01/14/2024 documented in this encounter Care Teams Building Attendant Relationship Specialty Start Date End Date Ken Greer MD [address] [place] [address] PCP - General 07/07/23 documented as of this encounter
--- OUTSIDE RECORDS SUMMARY | 2024-12-05 12:10 | XMS_ITS | Encounter Summary ---
Author Organization [facility] Address [address] [place] [address] Care Team Providers Care Epic Ambulatory Analyst Name Role Phone Ken Greer MD Primary Care Provider [phone] Encounter Details Date Type Department Care Team (Latest Contact Info) Description 01/17/2024 6:45 EDT Treatment [facility] [address] [place], [place] [id number] Carlota Jin MD 1 [facility], Level 2 [place] [phone] ESRD (end stage renal disease) ([facility]) (Primary Dx); Anemia of chronic renal failure, unspecified CKD stage; Hypoalbuminemia; Secondary hyperparathyroidism ([facility]); Diabetic foot infection ([facility]) Social History Tobacco Use Types [...] - Temperature - - Respiratory Rate 16 01/17/2024 0625 EDT Oxygen Saturation - - Inhaled Oxygen Concentration - - Weight 90.9 kg (200 lb 6.4 oz) 01/17/2024 0628 E DT Height - - Body Mass Index 28.75 12/20/2023 2202 EST documented in this encounter [...] Flowsheet Note - Marcela Cox RN - 01/17/2024 1259 EDT 01/17/24 1101 Post-Hemodialysis Assessment Total Blood Processed (L) 81.95 Liters On Line Clearance: spKt/V 1.42 spKt/V Dialyzer Clearance Lightly streaked Treatment UFR (ml:kg:hr) 12.16 ml:kg:hr Fluid Removed (L) 3.22 L Post-Dialysis Scale Weight 108.3 kg (238 lb 12.1 oz) Wheelchair Weight 20.8 kg (45 lb 13.7 oz) Prosthesis Weight 0.9 kg (1 lb 15.8 oz) Post-Treatment Weight (kg) 86.6 Treatment Weight Change (kg) 4.3 kg Day Target Weight (kg) 87 Post Sitting/Lying BP 142/71 Post Sitting/Lying pulse 67 Temp 36.5 ??C (97.7 ??F) Temp src Temporal Post access assessment AVF/AFG Hemostasis achieved Yes Note 10 minute hold both sites Orientation Alert and Oriented x3 Yes Time Yes Place Yes Person Yes Cooperative Yes Disoriented No Discharge Ambulation Methods Departs via w/c Wrap up items Patient Response to Treatment Removed 3.2L out of original 4L UF goal. Unable to remove full goal d/t SBP in low 100s, goal reduced with good effect. Comments d/c to home via w/c with . pt c/o pain throughout tx d/t fx ribs. documented in this encounter Plan of Treatment Upcoming Encounters Date Type Department Care Team (Late st Contact Info) Description 12/06/2024 6:45 EST Treatment [facility] [address] [place], [place] [phone] Carlota Jin MD [address] [place] [phone] 12/08/2024 6:45 EST Treatment [facility] [address] [place] [phone] Carlota Jin MD [address] [place] [phone] 12/11/2024 6:45 EST Treatment [facility] [address] [place], [place] [phone] Carlota Jin MD [address] [place] [address] 2 [place] [phone] 12/13/2024 6:45 EST Treatment [facility] [place] [address] [place], [place] [address] Carlota Jin MD 1 [facility] 2 [place] [phone] 12/15/2024 6:45 EST Treatment [facility] [place] [address] [place], [place] [phone] Carlota Jin MD 1 [facility], [facility] 2 [place] [phone] 12/18/2024 6:45 EST Treatment [facility] [place] [address] [place], [place] [phone] Carlota Jin MD 1 [facility] 2 [place] [phone] 12/20/2024 6:45 EST Treatment [facility] [place] [address] [place], [place] [id number] Carlota Jin MD 1 [facility], [facility] 2 [place] [phone] 12/22/2024 6:45 EST Treatment [facility] [place] [address] [place], [place] [phone] Carlota Jin MD 1 [facility], [facility] 2 [place] [phone] 12/25/2024 6:45 EST Treatment [facility] [place] [address] [place], [place] [phone] Carlota Jin MD 1 [facility], [facility] 2 [place] [phone] 12/27/2024 6:45 EST Treatment [facility] [place] [address] [place], [place] [phone] Carlota Jin MD 1 [facility] 2 [place] [phone] 12/29/2024 6:45 EST Treatment [facility] [place] [address] [place], [place] [phone] Carlota Jin MD 1 [facility], [address] [phone] 01/01/2025 6:45 EDT Treatment [facility] [place] [address] [place], [place] [phone] Carlota Jin MD 1 [facility], [address] [phone] 01/03/2025 6:45 EDT Treatment [facility] [address] [place] [address] Carlota Jin MD 1 [facility] 2 [place] [phone] 01/05/2025 6:45 EDT Treatment [facility] [address] [place], [place] [phone] Carlota Jin MD 1 [facility], [facility] 2 [place] [phone] 01/08/2025 6:45 EDT Treatment [facility] [place] [address] [place], [place] [phone] Carlota Jin MD 1 [facility], [facility] 2 [place] [phone] 01/10/2025 6:45 EDT Treatment [facility] [place] [address] [place], [place] [phone] Carlota Jin MD [address] [place] [address], [address] [phone] 01/12/2025 6:45 EDT Treatment [facility] [place] [address] [place], [place] [phone] Carlota Jin MD [address] [place] [address], [address] [phone] 01/15/2025 6:45 EDT Treatment [facility] [place] [address] [place], [place] [phone] Carlota Jin MD [address] [place] [address], [address] [phone] 01/17/2025 6:45 EDT Treatment [facility] [place] [address] [place], [place] [phone] Carlota Jin MD [address] [place] [address], [facility] 2 [place] [phone] 01/19/2025 6:45 EDT Treatment [facility] [place] [address] [place], [place] [phone] Carlota Jin MD 1 [facility], Level 2 [place] [phone] 01/22/2025 6:45 EDT Treatment [facility] [place] [address] [place], [place] [address] Carlota Jin MD 1 [facility], [facility] 2 [place] [phone] 01/24/2025 6:45 EDT Treatment [facility] [address] [place], [place] [phone] Carlota Jin MD 1 [facility], [facility] 2 [place] [phone] 01/26/2025 6:45 EDT Treatment [facility] [place] [address] [place] [address] Carlota Jin MD 1 [facility] 2 [place] [phone] 01/29/2025 6:45 EDT Treatment [facility] [address] [place], [place] [phone] Carlota Jin MD 1 [facility], [facility] 2 [place] [phone] 01/31/2025 6:45 EDT Treatment [facility] [address] [place], [place] [phone] Carlota Jin MD 1 [facility] 2 [place] [phone] 02/02/2025 6:45 EDT Treatment [facility] [place] [address] [place], [place] [phone] Carlota Jin MD 1 [facility], [facility] 2 [place] [phone] 02/05/2025 6:45 EDT Treatment [facility] [place] [address] [place], [place] [phone] Carlota Jin MD 1 [facility], [facility] 2 [place] [phone] 02/07/2025 6:45 EDT Treatment [facility] [place] [address] [place] [address] Carlota Jin MD [address] [place] [address], [facility] 2 [place] [phone] 02/09/2025 6:45 EDT Treatment [facility] [place] [address] [place], [place] [phone] Carlota Jin MD 1 [facility], [facility] 2 [place] [phone] 02/12/2025 6:45 EDT Treatment [facility] [place] [address] [place], [place] [phone] Carlota Jin MD 1 [facility], [facility] 2 [place] [phone] 02/14/2025 6:45 EDT Treatment [facility] [place] [address] [place], [place] [phone] Carlota Jin MD 1 [facility], [address] [phone] 02/16/2025 6:45 EDT Treatment [facility] [place] [address] [place], [place] [phone] Carlota Jin MD [address] [phone] 02/19/2025 6:45 EDT Treatment [facility] [address] [place] [address] Carlota Jin MD [address] [place] [phone] 02/21/2025 6:45 EDT Treatment [facility] [address] [place], [place] [phone] Carlota Jin MD [address] [place] [phone] documented as of this encounter Procedures Procedure Name Priority Date/Time Associated Diagnosis Comments HEMODIALYSIS Routine 01/17/2024 6:25 EDT ESRD (end stage renal disease) ([facility]) documented in this encounter Visit Diagnoses Diagnosis ESRD (end stage renal disease) ([facility])- Primary End stage renal disease Anemia of chronic renal failure, unspecified CKD stage Hypoalbuminemia Other disorders of plasma protein metabolism Secondary hyperparathyroidism ([facility]) Secondary hyperparathyroidism (of renal origin) Diabetic foot infection ([facility]) Type II or unspecified type diabetes mellitus with other specified manifestations, not stated as uncontrolled documented in this encounter Administered Medications Inactive Administered Medications - up to 3 most recent administrations Medication Order MAR Action Action Date Dose Rate Site calcium carbonate (TUMS) tablet 500 mg (200 mg elemental calcium) 2 Tablet 2 Tablet, oral, ONCE IN DIALYSIS, 1 dose, On Wed01/17/24 at 0645, Routine, DialysisIndications:ESRD (end stage renal disease) ([facility]),Secondary hyperparathyroidism ([facility]) Given 01/17/2024 7:00 EDT 2 Tablets epoetin ken (EPOGEN) 20,000 unit/2 mL injection 3,000 Units 3,000 Units, intravenous, ONCE IN DIALYSIS, 1 dose, On Wed01/17/24 at 0645, Routine, DialysisIndications:ESRD (end stage renal disease) ([facility]),Anemia of chronic renal failure, unspecified CKD stage Given 01/17/2024 7:00 EDT 3,000 Units ertapenem (INVANZ) 1,000 mg in sodium chloride (PF) 10 mL Syringe 1,000 mg, intravenous, Administer over 5 Minutes, ONCE IN DIALYSIS, 1 dose, On Wed01/17/24 at 0645, Type of Therapy: Definitive, Based on Cultures, Suspected Indication (Select all that apply): Polymicrobial DM foot infection, RoutineIndications:Diabetic foot infection ([facility]) Given 01/17/2024 10:48 EDT 1,000 mg heparin injection 9,000 Units 9,000 Units, intravenous, ONCE IN DIALYSIS, 1 dose, On Wed01/17/24 at 0645, Routine, Dialysis, Now x1 bolus 4500 units to be given at the beginning of dialysis 1500 units/hour to be given over the course of dialysis (9000 units total). Stop 1 hour prior to end of treatment. To be administered per Policy [id number].Indications:ESRD (end stage renal disease) ([facility]) Given 01/17/2024 7:00 EDT 9,000 Units LiquaCel liquid protein liquid 30 mL 30 mL, oral, ONCE IN DIALYSIS, 1 dose, On Wed01/17/24 at 0645, RoutineIndications:ESRD (end stage renal disease) ([facility]),Hypoalbuminemia Given 01/17/2024 7:01 EDT 30 mL vancomycin 850 mg central line syringe 50 mg/mL 850 mg, central line, Administer over 60 Minutes, ONCE IN DIALYSIS, 1 dose, On Wed01/17/24 at 0645, Routine, Suspected Indication (Select all that apply): Moderate or Severe DM foot infectionIndications:Diabetic foot infection ([facility]) Given 01/17/2024 9:50 EDT 850 mg documented in this encounter Orders Dialysis Count Last Ordered Date First Orde red Date HEMODIALYSIS 1 01/17/2024 documented in this encounter Care Teams Epic Ambulatory Analyst Relationship Specialty Start Date End Date Ken Greer MD [address] [place] [address] PCP - General 07/07/23 documented as of this encounter
--- OUTSIDE RECORDS SUMMARY | 2024-12-05 12:10 | XMS_ITS | Encounter Summary ---
Author Organization [facility] Address [address] [place] [address] Care Team Providers Care Pressure Vessel Inspector Name Role Phone Ken Greer MD Primary Care Provider [phone] Kiel Powers Unavailable Unavailable Reason for Visit * Reason Onset Date Comments Returning Call 01/04/2024 Encounter Details Date Type Department Care Team (Late st Contact Info) Description 01/04/2024 Telephone [facility] Transplant - S [address] [phone] Transplant, Nurse Returning Call Social History Tobacco Use Types Packs/Day Years [...] * Telephone Encounter - Susana Gresham - 01/04/2024 0929 EDT Pt returning call , please call him back thanks documented in this encounter Plan of Treatment Upcoming Encounters Date Type Department Care Team (Late st Contact Info) Description 12/06/2024 6:45 EST Treatment [facility] [place] [address] [place], [place] [address] Carlota Jin MD 1 [facility] 2 [place] [phone] 12/08/2024 6:45 EST Treatment [facility] [place] [address] [place] [address] Carlota Jin MD 1 [facility] 2 [place] [phone] 12/11/2024 6:45 EST Treatment [facility] [place] [place] [address] [place] [address] Carlota Jin MD 1 [facility] 2 [place] [phone] 12/13/2024 6:45 EST Treatment [facility] [place] [place] [address] [place], [place] [address] Carlota Jin MD 1 [facility] 2 [place] [phone] 12/15/2024 6:45 EST Treatment [facility] [place] [address] [place], [place] [phone] Carlota Jin MD 1 [facility] 2 [place] [phone] 12/18/2024 6:45 EST Treatment [facility] [place] [address] [place], [place] [phone] Carlota Jin MD 1 [facility] 2 [place] [phone] 12/20/2024 6:45 EST Treatment [facility] [address] [place], [place] [phone] Carlota Jin MD 1 [facility] 2 [place] [phone] 12/22/2024 6:45 EST Treatment [facility] [place] [address] [place], [place] [phone] Carlota Jin MD 1 [facility] 2 [place] [phone] 12/25/2024 6:45 EST Treatment [facility] [place] [address] [place], [place] [phone] Carlota Jin MD 1 [facility] 2 [place] [phone] 12/27/2024 6:45 EST Treatment [facility] [place] [address] [place], [place] [phone] Carlota Jin MD 1 [facility] 2 [place] [phone] 12/29/2024 6:45 EST Treatment [facility] [place] [address] [place], [place] [phone] Carlota Jin MD 1 [facility] 2 [place] [phone] 01/01/2025 6:45 EDT Treatment [facility] [place] [address] [place], [place] [phone] Carlota Jin MD 1 [facility] 2 [place] [phone] 01/03/2025 6:45 EDT Treatment [facility] [place] [address] [place], [place] [phone] Carlota Jin MD 1 [facility] 2 [place] [phone] 01/05/2025 6:45 EDT Treatment [facility] [place] [address] [place], [place] [phone] Carlota Jin MD 1 [facility] Level [address] [place] [phone] 01/08/2025 6:45 EDT Treatment [facility] [place] [address] [place], [place] [address] Carlota Jin MD 1 [facility] 2 [place] [phone] 01/10/2025 6:45 EDT Treatment [facility] [place] [place] [address] [place], [place] [phone] Carlota Jin MD 1 [facility] 2 [place] [phone] 01/12/2025 6:45 EDT Treatment [facility] [place] [address] [place], [place] [phone] Carlota Jin MD 1 [facility] 2 [place] [phone] 01/15/2025 6:45 EDT Treatment [facility] [address] [place], [place] [phone] Carlota Jin MD 1 [facility] 2 [place] [phone] 01/17/2025 6:45 EDT Treatment [facility] [address] [place], [place] [phone] Carlota Jin MD 1 [facility] 2 [place] [phone] 01/19/2025 6:45 EDT Treatment [facility] [place] [address] [place], [place] [id number] Carlota Jin MD 1 [facility] 2 [place] [phone] 01/22/2025 6:45 EDT Treatment [facility] [place] [address] [place], [place] [address] Carlota Jin MD 1 [facility] 2 [place] [phone] 01/24/2025 6:45 EDT Treatment [facility] [place] [address] [place], [place] [phone] Carlota Jin MD 1 [facility] 2 [place] [phone] 01/26/2025 6:45 EDT Treatment [facility] [place] [place] [address] [place], [place] [phone] Carlota Jin MD 1 [facility] 2 [place] [phone] 01/29/2025 6:45 EDT Treatment [facility] [place] [address] [place], [place] [id number] Carlota Jin MD 1 [facility] 2 [place] [phone] 01/31/2025 6:45 EDT Treatment [facility] [place] [address] [place] [phone] Carlota Jin MD 1 [facility] 2 [place] [phone] 02/02/2025 6:45 EDT Treatment [facility] [place] [address] [place], [place] [phone] Carlota Jin MD 1 [facility] 2 [place] [phone] 02/05/2025 6:45 EDT Treatment [facility] [place] [place] [address] [place] [address] Carlota Jin MD 1 [facility], [address] [phone] 02/07/2025 6:45 EDT Treatment [facility] [place] [place] [address] [place], [place] [phone] Carlota Jin MD 1 [facility], [address] [phone] 02/09/2025 6:45 EDT Treatment [facility] [place] [place] [address] [place] [address] Carlota Jin MD 1 [facility] 2 [place] [phone] 02/12/2025 6:45 EDT Treatment [facility] [place] [address] [place], [place] [id number] Carlota Jin MD 1 [facility] 2 [place] [phone] 02/14/2025 6:45 EDT Treatment [facility] [address] [place], [place] [id number] Carlota Jin MD 1 [facility], [address] [phone] 02/16/2025 6:45 EDT Treatment [facility] [address] [place], [place] [phone] Carlota Jin MD [address] [place] [address], [address] [phone] 02/19/2025 6:45 EDT Treatment [facility] [address] [place], [place] [id number] Carlota Jin MD [address] [place] [phone] 02/21/2025 6:45 EDT Treatment [facility] [address] [place], [place] [phone] Carlota Jin MD [address] [place] [phone] documented as of this encounter Visit Diagnoses Not on filedocumented in this encounter Additional Health Concerns Infection Onset Date Last Indicated Resolved Time COVID-19 Comment:Collected @ [facility]. 03/12/2024 03/13/2024 04/01/2024 22: 15 EDT R/O COVID-19 05/30/2024 05/30/2024 05/30/2024 20:5 0 EDT documented as of this encounter Care Teams Pressure Vessel Inspector Relationship Specialty Start Date End Date Ken Greer MD [address] [place] [address] PCP - General 07/07/23 Kile Powers [employer] Neph[facility] 05/31/24 documented as of this encounter
--- OUTSIDE RECORDS SUMMARY | 2024-12-05 12:10 | XMS_ITS | Encounter Summary ---
Author Organization [facility] Address [address] [place] [address] Care Team Providers Care Photo Mask Cleaner Name Role Phone Ken Greer MD Primary Care Provider [phone] Encounter Details Date Type Department Care Team (Latest Contact Info) Description 01/12/2024 6:45 EDT Treatment [facility] [address] [place], [place] [phone] Carlota Jin MD 1 [facility], Level [address] [place] [address] ESRD (end stage renal disease) ([facility]) (Primary Dx); Anemia of chronic renal failure, unspecified CKD stage; Hypoalbuminemia; Secondary hyperparathyroidism ([facility]); Diabetic foot infection ([facility]) Social History Tobacco [...] - Temperature - - Respiratory Rate 16 01/12/2024 0637 EDT Oxygen Saturation - - Inhaled Oxygen Concentration - - Weight 88.6 kg (195 lb 5.2 oz) 01/12/2024 0633 E DT Height - - Body Mass [...] Flowsheet Note - Marcela Cox RN - 01/12/2024 1353 EDT 01/12/24 1107 Post-Hemodialysis Assessment Total Blood Processed (L) 87.97 Liters On Line Clearance: spKt/V 1.57 spKt/V Dialyzer Clearance Lightly streaked Treatment UFR (ml:kg:hr) 6.76 ml:kg:hr Fluid Removed (L) 2.8 L Post-Dialysis Scale Weight 107 kg (235 lb 14.3 oz) Wheelchair Weight 20.8 kg (45 lb 13.7 oz) Prosthesis Weight 0 kg (0 lb) Post-Treatment Weight (kg) 86.2 Treatment Weight Change (kg) 2.4 kg Day Target Weight (kg) 86.3 Post Sitting/Lying BP 154/79 Post Sitting/Lying pulse 60 Temp 36.4 ??C (97.5 ??F) Temp src Temporal Post access assessment AVF/AFG Hemostasis achieved Yes Note 10 minute hold both sites Orientation Alert and Oriented x3 Yes Time Yes Place Yes Person Yes Cooperative Yes Disoriented No Discharge Ambulation Methods Departs via w/c Wrap up items Patient Response to Treatment Tolerated tx well. Removed 2.8L UF goal without difficulty. Comments No issues during tx, no concerns voiced post tx. documented in this encounter Plan of Treatment Upcoming Encounters Date Type Department Care Team (Late st Contact Info) Description 12/06/2024 6:45 EST Treatment [facility] [place] [address] [place], [place] [phone] Carlota Jin MD 1 [facility], [address] [phone] 12/08/2024 6:45 EST Treatment [facility] [place] [address] [place], [place] [phone] Carlota Jin MD [address] [phone] 12/11/2024 6:45 EST Treatment [facility] [place] [address] [place], [place] [phone] Carlota Jin MD [address] [phone] 12/13/2024 6:45 EST Treatment [facility] [address] [place], [place] [phone] Carlota Jin MD 1 [facility], Level [address] [place] [phone] 12/15/2024 6:45 EST Treatment [facility] [place] [address] [place], [place] [address] Carlota Jin MD [facility], [facility] [address] [place] [phone] 12/18/2024 6:45 EST Treatment [facility] [place] [address] [place], [place] [phone] Carlota Jin MD 1 [facility], [facility] [address] [place] [phone] 12/20/2024 6:45 EST Treatment [facility] [place] [address] [place], [place] [phone] Carlota Jin MD [facility], [facility] [place] [phone] 12/22/2024 6:45 EST Treatment [facility] [place] [address] [place] [address] Carlota Jin MD [facility], [facility] [address] [place] [phone] 12/25/2024 6:45 EST Treatment [facility] [place] [address] [place], [place] [phone] Carlota Jin MD [facility], [facility] [address] [place] [phone] 12/27/2024 6:45 EST Treatment [facility] [place] [address] [place], [place] [phone] Carlota Jin MD 1 [facility], [facility] [place] [phone] 12/29/2024 6:45 EST Treatment [facility] [place] [address] [place], [place] [phone] Carlota Jin MD 1 [facility], [facility] [place] [phone] 01/01/2025 6:45 EDT Treatment [facility] [place] [address] [place], [place] [phone] Carlota Jin MD 1 [facility], [facility] [place] [phone] 01/03/2025 6:45 EDT Treatment [facility] [place] [address] [place], [place] [phone] Carlota Jin MD 1 [facility], [facility] [address] [place] [phone] 01/05/2025 6:45 EDT Treatment [facility] [place] [address] [place], [place] [phone] Carlota Jin MD 1 [facility], [facility] [address] [place] [phone] 01/08/2025 6:45 EDT Treatment [facility] [place] [address] [place], [place] [phone] Carlota Jin MD [facility], [facility] [address] [place] [phone] 01/10/2025 6:45 EDT Treatment [facility] [place] [address] [place], [place] [address] Carlota Jin MD [facility], [facility] [address] [place] [phone] 01/12/2025 6:45 EDT Treatment [facility] [place] [address] [place], [place] [phone] Carlota Jin MD 1 [facility], [facility] [address] [place] [phone] 01/15/2025 6:45 EDT Treatment [facility] [place] [address] [place] [address] Carlota Jin MD 1 [facility], [facility] [place] [phone] 01/17/2025 6:45 EDT Treatment [facility] [place] [address] [place], [place] [phone] Carlota Jin MD 1 [facility], [facility] [address] [place] [phone] 01/19/2025 6:45 EDT Treatment [facility] [place] [address] [place], [place] [phone] Carlota Jin MD 1 [facility], [facility] [address] [place] [phone] 01/22/2025 6:45 EDT Treatment [facility] [place] [address] [place], [place] [phone] Carlota Jin MD 1 [facility], [facility] [address] [place] [phone] 01/24/2025 6:45 EDT Treatment [facility] [place] [address] [place], [place] [phone] Carlota Jin MD 1 [facility], [facility] [address] [place] [phone] 01/26/2025 6:45 EDT Treatment [facility] [place] [address] [place] [address] Carlota Jin MD 1 [facility], [address] [phone] 01/29/2025 6:45 EDT Treatment [facility] [place] [address] [place], [place] [phone] Carlota Jin MD 1 [facility], [facility] [address] [place] [phone] 01/31/2025 6:45 EDT Treatment [facility] [place] [address] [place], [place] [phone] Carlota Jin MD 1 [facility], [facility] [place] [phone] 02/02/2025 6:45 EDT Treatment [facility] [place] [address] [place] [address] Carlota Jin MD 1 [facility], [facility] [place] [phone] 02/05/2025 6:45 EDT Treatment [facility] [place] [address] [place] [address] Carlota Jin MD [facility], [facility] [address] [place] [phone] 02/07/2025 6:45 EDT Treatment [facility] [place] [address] [place] [address] Carlota Jin MD 1 [facility], [address] [phone] 02/09/2025 6:45 EDT Treatment [facility] [place] [address] [place] [address] Carlota Jin MD 1 [facility], [address] [phone] 02/12/2025 6:45 EDT Treatment [facility] [place] [address] [place] [address] Carlota Jin MD 1 [facility], [facility] [address] [place] [phone] 02/14/2025 6:45 EDT Treatment [facility] [place] [address] [place], [place] [phone] Carlota Jin MD 1 [facility], [facility] [address] [place] [phone] 02/16/2025 6:45 EDT Treatment [facility] [address] [place], [place] [phone] Carlota Jin MD 1 [facility], [facility] [address] [place] [phone] 02/19/2025 6:45 EDT Treatment [facility] [address] [place], [place] [phone] Carlota Jin MD 1 [facility], [facility] [address] [place] [phone] 02/21/2025 6:45 EDT Treatment [facility] [address] [place], [place] [phone] Carlota Jin MD [address] [place] [address], [facility] [address] [place] [phone] documented as of this encounter Procedures Procedure Name Priority Date/Time Associated Diagnosis Comments COMPLETE BLOOD COUNT Routine 01/12/2024 6:41 EDT ESRD (end stage renal disease) ([facility]) HEMODIALYSIS Routine 01/12/2024 6:37 EDT ESRD (end stage renal disease) ([facility]) documented in this encounter Results * (ABNORMAL) COMPLETE BLOOD COUNT (01/12/2024 6:41 EDT) WBC 10.10 4.00 - 10.40 K/cmm 01/13/2024 0:[address] [facility] RBC 2.56(L) 4.36 - 5.78 M/cmm 01/13/2024 0:[address] [facility] Hemoglobin 7.7(L) 13.8 - 17.3 g/dL 01/13/2024 0:[address] [facility] HCT 23.8(L) 39.5 - 50.2 % 01/13/2024 0:[address] [facility] MCV 93 81 - 95 fL 01/13/2024 0:[address] [facility] MCH 30.1 27.6 - 33.0 pg 01/13/2024 0:[address] [facility] MCHC 32.4(L) 32.8 - 36.4 g/dL 01/13/2024 0:[address] [facility] RDW-CV 14.5(H) <14.2 % 01/13/2024 0:[address] [facility] RDW-SD 49.9(H) <46.0 fl 01/13/2024 0:[address] [facility] PLT 323 141 - 377 K/cmm 01/13/2024 0:[address] [facility] MPV 11.7 9.5 - 12.7 fL 01/13/2024 0:[address] [facility] Blood VENOUS BLOOD / Unknown Venipuncture / Unknown 01/12/2024 6:41 EDT 01/12/2024 6:41 EDT us Skye Gomez NP HEMATOLOGY & PF4 ORDERABLES Final Result [facility] [address] [place], [place] [phone] documented in this encounter Visit Diagnoses Diagnosis ESRD (end stage renal disease) ([facility])- Primary End stage renal disease Anemia of chronic renal failure, unspecified CKD stage Hypoalbuminemia Other disorders of plasma protein metabolism Secondary hyperparathyroidism ([facility]) Secondary hyperparathyroidism (of renal origin) Diabetic foot infection ([facility]) Type II or unspecified type diabetes mellitus with other specified manifestations, not stated as uncontrolled documented in this encounter Administered Medications Inactive Administered Medications - up to 3 most recent administrations Medication Order MAR Action Action Date Dose Rate Site calcium carbonate (TUMS) tablet 500 mg (200 mg elemental calcium) 2 Tablet 2 Tablet, oral, ONCE IN DIALYSIS, 1 dose, On Wed01/12/24 at 0700, Routine, DialysisIndications:ESRD (end stage renal disease) ([facility]),Secondary hyperparathyroidism ([facility]) Given 01/12/2024 6:53 EDT 2 Tablets epoetin ken (EPOGEN) 20,000 unit/2 mL injection 3,000 Units 3,000 Units, intravenous, ONCE IN DIALYSIS, 1 dose, On Wed01/12/24 at 0700, Routine, DialysisIndications:ESRD (end stage renal disease) ([facility]),Anemia of chronic renal failure, unspecified CKD stage Given 01/12/2024 6:52 EDT 3,000 Units ertapenem (INVANZ) 1,000 mg in sodium chloride (PF) 10 mL Syringe 1,000 mg, intravenous, Administer over 5 Minutes, ONCE IN DIALYSIS, 1 dose, On Wed01/12/24 at 0700, Type of Therapy: Definitive, Based on Cultures, Suspected Indication (Select all that apply): Polymicrobial DM foot infection, RoutineIndications:Diabetic foot infection ([facility]) Given 01/12/2024 10:50 EDT 1,000 mg heparin injection 9,000 Units 9,000 Units, intravenous, ONCE IN DIALYSIS, 1 dose, On Wed01/12/24 at 0700, Routine, Dialysis, Now x1 bolus 4500 units to be given at the beginning of dialysis 1500 units/hour to be given over the course of dialysis (9000 units total). Stop 1 hour prior to end of treatment. To be administered per Policy [id number].Indications:ESRD (end stage renal disease) ([facility]) Given 01/12/2024 6:52 EDT 9,000 Units LiquaCel liquid protein liquid 30 mL 30 mL, oral, ONCE IN DIALYSIS, 1 dose, On Wed01/12/24 at 0700, RoutineIndications:ESRD (end stage renal disease) ([facility]),Hypoalbuminemia Given 01/12/2024 6:53 EDT 30 mL vancomycin 850 mg central line syringe 50 mg/mL 850 mg, central line, Administer over 60 Minutes, ONCE IN DIALYSIS, 1 dose, On Wed01/12/24 at 0700, Routine, Suspected Indication (Select all that apply): Moderate or Severe DM foot infectionIndications:Diabetic foot infection ([facility]) Given 01/12/2024 9:50 EDT 850 mg documented in this encounter Orders Dialysis Count Last Ordered Date First Orde red Date HEMODIALYSIS 1 01/12/2024 documented in this encounter Care Teams Photo Mask Cleaner Relationship Specialty Start Date End Date Ken Greer MD [address] [place] [address] PCP - General 07/07/23 documented as of this encounter
--- OUTSIDE RECORDS SUMMARY | 2024-12-05 12:10 | XMS_ITS | Encounter Summary ---
Author Organization [facility] Address [address] [place] [address] Care Team Providers Care Field Cane Scaler Name Role Phone Ken Greer MD Primary Care Provider [phone] Encounter Details Date Type Department Care Team (Late st Contact Info) Description 01/14/2024 Documentation Visit [address] [place], [place] [address] Melissa Crespo, RN Social History Tobacco Use [...] Contact Info) Description 12/06/2024 6:45 EST Treatment [facility] [place] [address] [place], [place] [phone] Carlota Jin MD 1 [facility], [facility] 2 [place] [phone] 12/08/2024 6:45 EST Treatment [facility] [place] [address] [place], [place] [phone] Carlota Jin MD 1 [facility] 2 [place] [phone] 12/11/2024 6:45 EST Treatment [facility] [place] [address] [place], [place] [phone] Carlota Jin MD 1 [facility], [facility] [address] [place] [phone] 12/13/2024 6:45 EST Treatment [facility] [address] [place], [place] [phone] Carlota [facility] MD [facility] 2 [place] [phone] 12/15/2024 6:45 EST Treatment [facility] [place] [address] [place], [place] [phone] Carlota Jin MD [facility] [address] [place] [phone] 12/18/2024 6:45 EST Treatment [facility] [place] [address] [place], [place] [phone] Carlota Jin MD 1 [facility], [facility] 2 [place] [phone] 12/20/2024 6:45 EST Treatment [facility] [place] [address] [place], [place] [phone] Carlota Jin MD 1 [facility], [facility] [address] [place] [phone] 12/22/2024 6:45 EST Treatment [facility] [address] [place], [place] [phone] Carlota Jin MD 1 [facility], [facility] [address] [place] [phone] 12/25/2024 6:45 EST Treatment [facility] [address] [place], [place] [phone] Carlota Jin MD 1 [facility], [facility] 2 [place] [phone] 12/27/2024 6:45 EST Treatment [facility] [place] [address] [place], [place] [phone] Carlota Jin MD 1 [facility], [facility] 2 [place] [phone] 12/29/2024 6:45 EST Treatment [facility] [place] [address] [place], [place] [phone] Carlota Jin MD 1 [facility], [address] [phone] 01/01/2025 6:45 EDT Treatment [facility] [place] [address] [place], [place] [phone] Carlota Jin MD 1 [facility], [address] [phone] 01/03/2025 6:45 EDT Treatment [facility] [place] [address] [place], [place] [phone] Carlota Jin MD 1 [facility], [address] [phone] 01/05/2025 6:45 EDT Treatment [facility] [place] [address] [place], [place] [phone] Carlota Jin MD [address] [place] [address], [facility] 2 [place] [phone] 01/08/2025 6:45 EDT Treatment [facility] [place] [address] [place], [place] [phone] Carlota Jin MD 1 [facility] [address] [place] [phone] 01/10/2025 6:45 EDT Treatment [facility] [place] [address] [place], [place] [address] Carlota Jin MD 1 [facility], [facility] 2 [place] [phone] 01/12/2025 6:45 EDT Treatment [facility] [place] [address] [place], [place] [phone] Carlota Jin MD 1 [facility], [facility] 2 [place] [phone] 01/15/2025 6:45 EDT Treatment [facility] [place] [address] [place], [place] [phone] Carlota Jin MD 1 [facility], [facility] 2 [place] [phone] 01/17/2025 6:45 EDT Treatment [facility] [address] [place], [place] [phone] Carlota Jni MD 1 [facility], [facility] 2 [place] [phone] 01/19/2025 6:45 EDT Treatment [facility] [address] [place], [place] [phone] Carlota Jin MD 1 [facility], [facility] 2 [place] [phone] 01/22/2025 6:45 EDT Treatment [facility] [place] [address] [place], [place] [phone] Carlota Jin MD 1 [facility], [facility] 2 [place] [phone] 01/24/2025 6:45 EDT Treatment [facility] [place] [address] [place], [place] [phone] Carlota Jin MD 1 [facility], [facility] 2 [place] [phone] 01/26/2025 6:45 EDT Treatment [facility] [place] [address] [place], [place] [phone] Carlota Jin MD 1 [facility], [facility] 2 [place] [phone] 01/29/2025 6:45 EDT Treatment [facility] [place] [address] [place], [place] [phone] Carlota Jin MD 1 [facility], [facility] 2 [place] [phone] 01/31/2025 6:45 EDT Treatment [facility] [place] [address] [place], [place] [phone] Carlota Jin MD 1 [facility], [facility] 2 [place] [phone] 02/02/2025 6:45 EDT Treatment [facility] [place] [address] [place] [phone] Carlota Jin MD 1 [facility], [facility] 2 [place] [phone] 02/05/2025 6:45 EDT Treatment [facility] [place] [address] [place], [place] [id number] Carlota Jin MD 1 [facility], [facility] 2 [place] [phone] 02/07/2025 6:45 EDT Treatment [facility] [place] [address] [place] [address] Carlota Jin MD 1 [facility], [address] [phone] 02/09/2025 6:45 EDT Treatment [facility] [place] [address] [place], [place] [phone] Carlota Jin MD 1 [facility], [address] [phone] 02/12/2025 6:45 EDT Treatment [facility] [place] [address] [place] [address] Carlota Jin MD 1 [facility], [facility] 2 [place] [phone] 02/14/2025 6:45 EDT Treatment [facility] [place] [address] [place], [place] [phone] Carlota Jin MD 1 [facility], [facility] 2 [place] [phone] 02/16/2025 6:45 EDT Treatment [facility] [address] [place], [place] [phone] Carlota Jin MD 1 [facility], [facility] 2 [place] [phone] 02/19/2025 6:45 EDT [facility] [address] [place], [place] [phone] Carlota Jin MD [address] [place] [address], [facility] 2 [place] [phone] 02/21/2025 6:45 EDT Treatment [facility] [address] [place], [place] [phone] Carlota Jin MD [address] [place] [address], [facility] [address] [place] [phone] documented as of this encounter Visit Diagnoses Not on filedocumented in this encounter Care Teams Field Cane Scaler Relationship Specialty Start Date End Date [place] [address] PCP - General 07/07/23 documented as of this encounter
--- OUTSIDE RECORDS SUMMARY | 2024-12-05 12:10 | XMS_ITS | Encounter Summary ---
Author Organization [facility] Address [address] [place] [address] Care Team Providers Care Straw Hat Presser Name Role Phone Ken Greer MD Primary Care Provider [phone] Encounter Details Date Type Department Care Team (Late st Contact Info) Description 01/10/2024 Documentation Visit [address] [place], [place] [address] Marcela Cox, VIDYA Social History Tobacco Use [...] Progress Notes * Marcela Cox RN - 01/10/2024 0721 EDT 01/10/24 7:22 [facility] DIALYSIS MEDICATION RECONCILIATION Medication review of home medications (prescriptions, gbpq-lct-zsqxtyb, herbals, vitamin/mineral/dietary (nutritional) supplements, medical marijuana, and recreational) was completed through: Patient/caregiver given printed prescriptions/medication summary and reviewed for accuracy. Current Medications Current Outpatient Medications Medication acetaminophen (TYLENOL) 325 mg tablet amLODIPine (NORVASC) 10 mg tablet apixaban (ELIQUIS) 5 mg tablet atorvastatin (LIPITOR) 40 mg tablet calcium carbonate (TUMS) 200 mg calcium (500 mg) tablet,chewable carvediloL (COREG) 12.5 mg tablet dilTIAZem (CARDIZEM CD) 120 mg capsule DULoxetine (CYMBALTA) 20 mg delayed release capsule famotidine (PEPCID) 40 mg tablet FLOVENT HFA 110 mcg/actuation inhaler insulin aspart U-100 (NOVOLOG FLEXPEN) 100 unit/mL (3 mL) injectable pen insulin pen needles 32G x 5/32 LEVEMIR FLEXPEN 100 unit/mL (3 mL) injectable pen oxyCODONE-acetaminophen (PERCOCET) 5-325 mg per tablet polyethylene glycol 3350 (MIRALAX) 17 gram packet pregabalin (LYRICA) 100 mg capsule SANTYL ointment sevelamer hydrochloride (RENAGEL) 800 mg tablet sildenafil citrate (VIAGRA) 100 mg tablet No current facility-administered medications for this visit. Facility-Administered Medications Ordered in Other Visits Medication Route Frequency ertapenem (INVANZ) 1,000 mg in sodium chloride (PF) 10 mL Syringe intravenous ONCE IN DIALYSIS vancomycin 850 mg central line syringe 50 mg/mL central line ONCE IN DIALYSIS Marcela Cox, RN documented in this encounter Plan of Treatment Upcoming Encounters Date Type Department Care Team (Late st Contact Info) Description 12/06/2024 6:45 EST Treatment [facility] [place] [address] [place], [place] [id number] Carlota Jin MD [address] [place] [address] [address] [place] [phone] 12/08/2024 6:45 EST Treatment [facility] [address] [place], [place] [id number] Carlota Jin MD [address] [place] [phone] 12/11/2024 6:45 EST Treatment [facility] [place] [address] [place], [place] [id number] Carlota Jin MD [address] [place] [address] [phone] 12/13/2024 6:45 EST Treatment [facility] [place] [address] [place], [place] [id number] Carlota Jin MD [address] [place] [address] [phone] 12/15/2024 6:45 EST Treatment [facility] [place] [address] [place], [place] [id number] Carlota Jin MD 1 [facility], [facility] [address] [place] [phone] 12/18/2024 6:45 EST Treatment [facility] [place] [address] [place], [place] [id number] Carlota Jin MD 1 [facility], [facility] [address] [place] [phone] 12/20/2024 6:45 EST Treatment [facility] [place] [address] [place], [place] [id number] Carlota Jin MD 1 [facility], [facility] [address] [place] [phone] 12/22/2024 6:45 EST Treatment [facility] [place] [address] [place], [place] [id number] Carlota Jin MD 1 [facility], [facility] [address] [place] [phone] 12/25/2024 6:45 EST Treatment [facility] [place] [address] [place], [place] [id number] Carlota Jin MD 1 [facility], [facility] [address] [place] [phone] 12/27/2024 6:45 EST Treatment [facility] [place] [address] [place], [place] [id number] Carlota Jin MD 1 [facility], [facility] [address] [place] [phone] 12/29/2024 6:45 EST Treatment [facility] [place] [address] [place], [place] [id number] Carlota Jin MD 1 [facility], [facility] [address] [place] [phone] 01/01/2025 6:45 EDT Treatment [facility] [place] [address] [place], [place] [id number] Carlota Jin MD 1 [facility], [facility] [address] [place] [phone] 01/03/2025 6:45 EDT Treatment [facility] [place] [address] [place], [place] [id number] Carlota Jin MD 1 [facility], [facility] [address] [place] [phone] 01/05/2025 6:45 EDT Treatment [facility] [place] [address] [place], [place] [id number] Carlota Jin MD 1 [facility], [facility] [address] [place] [phone] 01/08/2025 6:45 EDT Treatment [facility] [place] [address] [place], [place] [id number] Carolta Jin MD 1 [facility], [facility] [address] [place] [phone] 01/10/2025 6:45 EDT Treatment [facility] [place] [address] [place], [place] [id number] Carlota Jin MD 1 [facility], [facility] [address] [place] [phone] 01/12/2025 6:45 EDT Treatment [facility] [place] [place] [address] [place] [address] Carlota Jin MD 1 [facility], [facility] [address] [place] [phone] 01/15/2025 6:45 EDT Treatment [facility] [place] [address] [place], [place] [id number] Carlota Jin MD 1 [facility], [address] [phone] 01/17/2025 6:45 EDT Treatment [facility] [place] [place] [address] [place], [place] [id number] Carlota Jin MD 1 [facility], [address] [phone] 01/19/2025 6:45 EDT Treatment [facility] [place] [address] [place], [place] [id number] Carlota Jin MD 1 [facility], [facility] [address] [place] [phone] 01/22/2025 6:45 EDT Treatment [facility] [place] [address] [place], [place] [id number] Carlota Jin MD 1 [facility], [facility] [address] [place] [phone] 01/24/2025 6:45 EDT Treatment [facility] [place] [address] [place], [place] [id number] Carlota Jin MD 1 [facility], [facility] [address] [place] [phone] 01/26/2025 6:45 EDT Treatment [facility] [place] [address] [place], [place] [id number] Carlota Jin MD 1 [facility], [facility] [address] [place] [phone] 01/29/2025 6:45 EDT Treatment [facility] [place] [place] [address] [place], [place] [id number] Carlota Jin MD [address] [place] [address], [address] [phone] 01/31/2025 6:45 EDT Treatment [facility] [place] [place] [address] [place], [place] [id number] Carlota Jin MD [address] [place] [address], [facility] [address] [place] [phone] 02/02/2025 6:45 EDT Treatment [facility] [place] [place] [address] [place], [place] [id number] Carlota Jin MD 1 [facility], [facility] [address] [place] [phone] 02/05/2025 6:45 EDT Treatment [facility] [place] [place] [address] [place], [place] [id number] Carlota Jin MD 1 [facility], [facility] [address] [place] [phone] 02/07/2025 6:45 EDT Treatment [facility] [place] [address] [place], [place] [id number] Carlota Jin MD 1 [facility], [facility] [address] [place] [phone] 02/09/2025 6:45 EDT Treatment [facility] [place] [place] [address] [place], [place] [id number] Carlota Jin MD 1 [facility], [facility] [address] [place] [phone] 02/12/2025 6:45 EDT Treatment [facility] [place] [place] [address] [place], [place] [id number] Carlota Jin MD 1 [facility], [facility] [address] [place] [phone] 02/14/2025 6:45 EDT Treatment [facility] [place] [address] [place], [place] [id number] Carlota Jin MD 1 [facility], [facility] [address] [place] [phone] 02/16/2025 6:45 EDT Treatment [facility] [place] [address] [place], [place] [id number] Carlota Jin MD 1 [facility], [facility] [address] [place] [phone] 02/19/2025 6:45 EDT Treatment [facility] [place] [address] [place], [place] [id number] Carlota Jin MD 1 [facility], [facility] [address] [place] [phone] 02/21/2025 6:45 EDT Treatment [facility] [address] [place] [address] Carlota Jin MD 1 [facility], [facility] [address] [place] [phone] documented as of this encounter Visit Diagnoses Not on filedocumented in this encounter Historical Medications * This list may reflect changes made after this encounter. amLODIPine (NORVASC) 10 mg tablet Take 1 Tablet by mouth daily. 12/27/2023 added in this encounter Care Teams Straw Hat Presser Relationship Specialty Start Date End Date Ken Greer MD [address] [place] [id number] PCP - General 07/07/23 documented as of this encounter
--- OUTSIDE RECORDS SUMMARY | 2024-12-05 12:10 | XMS_ITS | Encounter Summary ---
Author Organization [facility] Address [address] [place] [address] Care Team Providers Care Jig Grinder Name Role Phone Ken Greer MD Primary Care Provider Encounter Details Date Type Department Care Team (Late st Contact Info) Description 01/07/2024 Documentation Visit [address] [place], [place] [address] Melissa Crespo, RN Social History Tobacco Use [...] Description 12/06/2024 6:45 EST Treatment [facility] [place] [address] [place], [place] [phone] Carlota Jin MD 1 [facility], [facility] [address] [place] [phone] 12/08/2024 6:45 EST Treatment [facility] [place] [address] [place], [place] [id number] Carlota Jin MD 1 [facility] [address] [place] [phone] 12/11/2024 6:45 EST Treatment [facility] [place] [address] [place], [place] [id number] Carlota Jin MD 1 [facility], [facility] [address] [place] [phone] 12/13/2024 6:45 EST Treatment [facility] [address] [place], [place] [id number] Carlota Jin MD 1 [facility], [facility] [address] [place] [phone] 12/15/2024 6:45 EST Treatment [facility] [place] [address] [place], [place] [id number] Carlota Jin MD 1 [facility], [facility] [address] [place] [phone] 12/18/2024 6:45 EST Treatment [facility] [place] [address] [place], [place] [id number] Carlota Jin MD 1 [facility], [facility] [address] [place] [phone] 12/20/2024 6:45 EST Treatment [facility] [place] [address] [place], [place] [id number] Carlota Jin MD 1 [facility], [facility] [address] [place] [phone] 12/22/2024 6:45 EST Treatment [facility] [address] [place], [place] [id number] Carlota Jin MD 1 [facility], [facility] [address] [place] [phone] 12/25/2024 6:45 EST Treatment [facility] [address] [place], [place] [id number] Carlota Jin MD 1 [facility], [facility] [address] [place] [phone] 12/27/2024 6:45 EST Treatment [facility] [place] [address] [place], [place] [id number] Carlota Jin MD 1 [facility], [facility] [address] [place] [phone] 12/29/2024 6:45 EST Treatment [facility] [place] [address] [place], [place] [id number] Carlota Jin MD 1 [facility], [address] [phone] 01/01/2025 6:45 EDT Treatment [facility] [place] [address] [place], [place] [id number] Carlota Jin MD 1 [facility], [address] [phone] 01/03/2025 6:45 EDT Treatment [facility] [place] [address] [place], [place] [phone] Carlota Jin MD 1 [facility], [address] [phone] 01/05/2025 6:45 EDT Treatment [facility] [place] [address] [place], [place] [id number] Carlota Jin MD [address] [place] [address], [facility] [address] [place] [phone] 01/08/2025 6:45 EDT Treatment [facility] [place] [address] [place], [place] [id number] Carlota Jin MD [facility] [place] [address] [place] [phone] 01/10/2025 6:45 EDT Treatment [facility] [place] [address] [place], [place] [id number] Carlota Jin MD 1 [facility], [facility] [address] [place] [phone] 01/12/2025 6:45 EDT Treatment [facility] [place] [address] [place], [place] [id number] Carlota Jin MD 1 [facility], [facility] [address] [place] [phone] 01/15/2025 6:45 EDT Treatment [facility] [place] [address] [place], [place] [phone] Carlota Jin MD 1 [facility], [facility] [address] [place] [phone] 01/17/2025 6:45 EDT Treatment [facility] [address] [place], [place] [id number] Carlota Jin MD 1 [facility], [facility] [address] [place] [phone] 01/19/2025 6:45 EDT Treatment [facility] [address] [place], [place] [id number] Carlota Jin MD 1 [facility], [facility] [address] [place] [phone] 01/22/2025 6:45 EDT Treatment [facility] [place] [address] [place], [place] [id number] Carlota Jin MD 1 [facility], [facility] [address] [place] [phone] 01/24/2025 6:45 EDT Treatment [facility] [place] [address] [place], [place] [id number] Carlota Jin MD 1 [facility], [facility] [address] [place] [phone] 01/26/2025 6:45 EDT Treatment [facility] [place] [address] [place], [place] [phone] Carlota Jin MD 1 [facility], [facility] [address] [place] [phone] 01/29/2025 6:45 EDT Treatment [facility] [place] [address] [place], [place] [id number] Carlota Jin MD 1 [facility], [facility] [address] [place] [phone] 01/31/2025 6:45 EDT Treatment [facility] [place] [address] [place], [place] [id number] Carlota Jin MD 1 [facility], [facility] [address] [place] [phone] 02/02/2025 6:45 EDT Treatment [facility] [place] [address] [place], [place] [phone] Carlota Jin MD 1 [facility], [facility] [address] [place] [phone] 02/05/2025 6:45 EDT Treatment [facility] [place] [address] [place], [place] [id number] Carlota Jin MD 1 [facility], [facility] [address] [place] [phone] 02/07/2025 6:45 EDT Treatment [facility] [place] [address] [place] [address] Carlota Jin MD 1 [facility], [address] [phone] 02/09/2025 6:45 EDT Treatment [facility] [place] [address] [place], [place] [id number] Carlota Jin MD 1 [facility], [address] [phone] 02/12/2025 6:45 EDT Treatment [facility] [place] [address] [place] [address] Carlota Jin MD 1 [facility], [facility] [address] [place] [phone] 02/14/2025 6:45 EDT Treatment [facility] [place] [address] [place], [place] [phone] Carlota Jin MD 1 [facility], [facility] [address] [place] [phone] 02/16/2025 6:45 EDT Treatment [facility] [address] [place], [place] [id number] Carlota Jin MD 1 [facility], [facility] [address] [place] [phone] 02/19/2025 6:45 [facility] [address] [place], [place] [phone] Carlota Jin MD [address] [place] [address], [facility] [address] [place] [phone] 02/21/2025 6:45 EDT Treatment [facility] [address] [place], [place] [phone] Carlota Jni MD [address] [place] [address], [facility] [address] [place] [phone] documented as of this encounter Visit Diagnoses Not on filedocumented in this encounter Care Teams Jig Grinder Relationship Specialty Start Date End Date [place] [address] PCP - General 07/07/23 documented as of this encounter
--- OUTSIDE RECORDS SUMMARY | 2024-12-05 12:10 | XMS_ITS | Encounter Summary ---
Author Organization [facility] Address [address] [place] [address] Care Team Providers Care Vendor Management Consultant Name Role Phone Ken Greer MD Primary Care Provider [phone] Encounter Details Date Type Department Care Team (Late st Contact Info) Description 01/14/2024 Documentation Visit [address] [place], [place] [id number] Melissa Crespo, RN Social History Tobacco Use [...] Treatment [facility] [place] [address] [place], [place] [id number] Carlota Jin MD 1 [facility], [facility] [address] [place] [phone] 12/08/2024 6:45 EST Treatment [facility] - [place] [address] [place], [place] [id number] Carlota Jin MD 1 [facility] 2 [place] [phone] 12/11/2024 6:45 EST Treatment [facility] [place] [address] [place], [place] [id number] Carlota Jin MD 1 [facility], [facility] [address] [place] [phone] 12/13/2024 6:45 EST Treatment [facility] [address] [place], [place] [phone] Carlota Jin MD 1 [facility] [address] [place] [phone] 12/15/2024 6:45 EST Treatment [facility] - [place] [address] [place], [place] [id number] Carlota Jin MD 1 [facility], [facility] [address] [place] [phone] 12/18/2024 6:45 EST Treatment [facility] [place] [address] [place], [place] [id number] Carlota Jin MD 1 [facility], [facility] [address] [place] [phone] 12/20/2024 6:45 EST Treatment [facility] [place] [address] [place], [place] [id number] Carlota Jin MD 1 [facility], [facility] [address] [place] [phone] 12/22/2024 6:45 EST Treatment [facility] [address] [place], [place] [id number] Carlota Jin MD 1 [facility], [facility] [address] [place] [phone] 12/25/2024 6:45 EST Treatment [facility] [address] [place], [place] [id number] Carlota Jin MD 1 [facility], [facility] [address] [place] [phone] 12/27/2024 6:45 EST Treatment [facility] [place] [address] [place], [place] [id number] Carlota Jin MD 1 [facility], [facility] [address] [place] [phone] 12/29/2024 6:45 EST Treatment [facility] - [place] [address] [place], [place] [id number] Carlota Jin MD 1 [facility], [address] [phone] 01/01/2025 6:45 EDT Treatment [facility] [place] [address] [place], [place] [id number] Carlota Jin MD 1 [facility], [address] [phone] 01/03/2025 6:45 EDT Treatment [facility] - [place] [address] [place], [place] [id number] Carlota Jin MD 1 [facility], [address] [phone] 01/05/2025 6:45 EDT Treatment [facility] [place] [address] [place], [place] [id number] Carlota Jin MD [address] [place] [address], [facility] [address] [place] [phone] 01/08/2025 6:45 EDT Treatment [facility] [place] [address] [place], [place] [id number] Carlota Jin MD 1 [facility], Level [address] [place] [phone] 01/10/2025 6:45 EDT Treatment [facility] [place] [address] [place], [place] [address] Carlota Jin MD 1 [facility], [facility] [address] [place] [phone] 01/12/2025 6:45 EDT Treatment [facility] [place] [address] [place], [place] [id number] Carlota Jin MD 1 [facility], [facility] [address] [place] [phone] 01/15/2025 6:45 EDT Treatment [facility] [place] [address] [place], [place] [id number] Carlota Jin MD 1 [facility], [facility] [address] [place] [phone] 01/17/2025 6:45 EDT Treatment [facility] [address] [place], [place] [id number] Carlota Jin MD 1 [facility], [facility] [address] [place] [phone] 01/19/2025 6:45 EDT Treatment [facility] [address] [place], [place] [phone] Carlota Jin MD 1 [facility], [facility] [address] [place] [phone] 01/22/2025 6:45 EDT Treatment [facility] - [place] [address] [place], [place] [id number] Carlota Jin MD 1 [facility], [facility] [address] [place] [phone] 01/24/2025 6:45 EDT Treatment [facility] - [place] [address] [place], [place] [id number] Carlota Jin MD 1 [facility], [facility] [address] [place] [phone] 01/26/2025 6:45 EDT Treatment [facility] [place] [address] [place], [place] [id number] Carlota Jin MD 1 [facility], [facility] [address] [place] [phone] 01/29/2025 6:45 EDT Treatment [facility] [place] [address] [place], [place] [id number] Carlota Jin MD 1 [facility], [facility] [address] [place] [phone] 01/31/2025 6:45 EDT Treatment [facility] - [place] [address] [place], [place] [id number] Carlota Jin MD 1 [facility], [facility] [address] [place] [phone] 02/02/2025 6:45 EDT Treatment [facility] - [place] [address] [place], [place] [phone] Carlota Jin MD 1 [facility], [facility] [address] [place] [phone] 02/05/2025 6:45 EDT Treatment [facility] [place] [address] [place], [place] [id number] Carlota Jin MD 1 [facility], [facility] [address] [place] [phone] 02/07/2025 6:45 EDT Treatment [facility] [place] [address] [place] [address] Carlota Jin MD 1 [facility], [address] [phone] 02/09/2025 6:45 EDT Treatment [facility] - [place] [address] [place], [place] [phone] Carlota Jin MD 1 [facility], [address] [phone] 02/12/2025 6:45 EDT Treatment [facility] - [place] [address] [place] [address] Carlota Jin MD 1 [facility], [facility] [address] [place] [phone] 02/14/2025 6:45 EDT Treatment [facility] [place] [address] [place], [place] [id number] Carlota Jin MD 1 [facility], [facility] [address] [place] [phone] 02/16/2025 6:45 EDT Treatment [facility] [address] [place], [place] [id number] Carlota Jin MD 1 [facility], [facility] [address] [place] [phone] 02/19/2025 6:[address] [facility] [address] [place], [place] [phone] Carlota Jin MD [address] [place] [address], [facility] [address] [place] [phone] 02/21/2025 6:45 EDT Treatment [facility] [address] [place], [place] [phone] Carlota Jin MD [address] [place] [address], [facility] [address] [place] [phone] documented as of this encounter Visit Diagnoses Not on filedocumented in this encounter Care Teams Vendor Management Consultant Relationship Specialty Start Date End Date [place] [address] PCP - General 07/07/23 documented as of this encounter
--- OUTSIDE RECORDS SUMMARY | 2024-12-05 12:10 | XMS_ITS | Encounter Summary ---
Author Organization [facility] Address [address] [place] [address] Care Team Providers Care Novelty Balloon Assembler And Packer Name Role Phone Ken Greer MD Primary Care Provider [phone] Encounter Details Date Type Department Care Team (Late st Contact Info) Description 01/07/2024 Documentation Visit [address] [place], [place] [address] Melissa Crespo, RN Social History Tobacco Use [...] Treatment [facility] - [place] [address] [place], [place] [id number] Carlota Jin MD 1 [facility], [facility] [address] [place] [phone] 12/08/2024 6:45 EST Treatment [facility] - [place] [address] [place], [place] [id number] Carlota Jin MD 1 [facility] 2 [place] [phone] 12/11/2024 6:45 EST Treatment [facility] [place] [address] [place], [place] [id number] Carlota Jin MD 1 [facility], [facility] [address] [place] [phone] 12/13/2024 6:45 EST Treatment [facility] [address] [place], [place] [id number] Carl[facility] MD 1 [facility], [facility] [address] [place] [phone] 12/15/2024 6:45 EST Treatment [facility] - [place] [address] [place], [place] [id number] Carlota Jin MD 1 [facility], [facility] 2 [place] [phone] 12/18/2024 6:45 EST Treatment [facility] [place] [address] [place], [place] [id number] Carlota Jin MD 1 [facility], [facility] 2 [place] [phone] 12/20/2024 6:45 EST Treatment [facility] [place] [address] [place], [place] [id number] Carlota Jin MD 1 [facility], [facility] [address] [place] [phone] 12/22/2024 6:45 EST Treatment [facility] [address] [place], [place] [id number] Carlota Jin MD 1 [facility], [facility] 2 [place] [phone] 12/25/2024 6:45 EST Treatment [facility] [address] [place], [place] [id number] Carlota Jin MD 1 [facility], [facility] [address] [place] [phone] 12/27/2024 6:45 EST Treatment [facility] [place] [address] [place], [place] [id number] Carlota Jin MD 1 [facility], [facility] [address] [place] [phone] 12/29/2024 6:45 EST Treatment [facility] - [place] [address] [place], [place] [id number] Carlota Jin MD 1 [facility], [address] [phone] 01/01/2025 6:45 EDT Treatment [facility] [place] [address] [place], [place] [id number] Carlota Jin MD 1 [facility], [address] [phone] 01/03/2025 6:45 EDT Treatment [facility] - [place] [address] [place], [place] [id number] Carlota Jin MD 1 [facility], [address] [phone] 01/05/2025 6:45 EDT Treatment [facility] [place] [address] [place], [place] [id number] Carlota Jin MD [address] [place] [address], [facility] [address] [place] [phone] 01/08/2025 6:45 EDT Treatment [facility] [place] [address] [place], [place] [id number] Carlota Jin MD 1 [facility] [address] [place] [phone] 01/10/2025 6:45 EDT Treatment [facility] [place] [address] [place], [place] [address] Carlota Jin MD 1 [facility], [facility] 2 [place] [phone] 01/12/2025 6:45 EDT Treatment [facility] [place] [address] [place], [place] [id number] Carlota Jin MD 1 [facility], [facility] 2 [place] [phone] 01/15/2025 6:45 EDT Treatment [facility] [place] [address] [place], [place] [id number] Carlota Jin MD 1 [facility], [facility] 2 [place] [phone] 01/17/2025 6:45 EDT Treatment [facility] [address] [place], [place] [id number] Carlota Jin MD 1 [facility], [facility] [address] [place] [phone] 01/19/2025 6:45 EDT Treatment [facility] [address] [place], [place] [id number] Carlota Jin MD 1 [facility], [facility] [address] [place] [phone] 01/22/2025 6:45 EDT Treatment [facility] - [place] [address] [place], [place] [id number] Carlota Jin MD 1 [facility], [facility] 2 [place] [phone] 01/24/2025 6:45 EDT Treatment [facility] - [place] [address] [place], [place] [id number] Carlota Jin MD 1 [facility], [facility] 2 [place] [phone] 01/26/2025 6:45 EDT Treatment [facility] [place] [address] [place], [place] [id number] Carlota Jin MD 1 [facility], [facility] [address] [place] [phone] 01/29/2025 6:45 EDT Treatment [facility] [place] [address] [place], [place] [id number] Carlota Jin MD 1 [facility], [facility] 2 [place] [phone] 01/31/2025 6:45 EDT Treatment [facility] - [place] [address] [place], [place] [id number] Carlota Jin MD 1 [facility], [facility] 2 [place] [phone] 02/02/2025 6:45 EDT Treatment [facility] - [place] [address] [place], [place] [id number] Carlota Jin MD 1 [facility], [facility] 2 [place] [phone] 02/05/2025 6:45 EDT Treatment [facility] [place] [address] [place], [place] [id number] Carlota Jin MD 1 [facility], [facility] 2 [place] [phone] 02/07/2025 6:45 EDT Treatment [facility] [place] [address] [place] [address] Carlota Jin MD 1 [facility], [address] [phone] 02/09/2025 6:45 EDT Treatment [facility] - [place] [address] [place], [place] [id number] Carlota Jin MD 1 [facility], [address] [phone] 02/12/2025 6:45 EDT Treatment [facility] [place] [address] [place] [address] Carlota Jin MD 1 [facility], [facility] [address] [place] [phone] 02/14/2025 6:45 EDT Treatment [facility] [place] [address] [place], [place] [id number] Carlota Jin MD 1 [facility], [facility] [address] [place] [phone] 02/16/2025 6:45 EDT Treatment [facility] [address] [place], [place] [id number] Carlota Jin MD 1 [facility], [facility] [address] [place] [phone] 02/19/2025 6:45 EDT Treatment [facility] [address] [place], [place] [id number] Carlota Jin MD [address] [place] [address], [facility] [address] [place] [phone] 02/21/2025 6:45 EDT Treatment [facility] [address] [place], [place] [id number] Carlota Jin MD [address] [place] [address], [facility] [address] [place] [phone] documented as of this encounter Visit Diagnoses Not on filedocumented in this encounter Care Teams Novelty Balloon Assembler And Packer Relationship Specialty Start Date End [place] [address] PCP - General 07/07/23 documented as of this encounter
--- OUTSIDE RECORDS SUMMARY | 2024-12-05 12:10 | XMS_ITS | Encounter Summary ---
Author Organization [facility] Address [address] [place] [address] Care Team Providers Care Linderman Machine Operator Name Role Phone Ken Greer MD Primary Care Provider [phone] Reason for Visit * Reason Onset Date Comments Referral Request 01/04/2024 Encounter Details Date Type Department Care Team (Late st Contact Info) Description 01/04/2024 Telephone [facility] [place] [address] [place] [address] [id number] Nuris Malone RN Referral Request Social History Tobacco Use Types Packs/Day Years [...] encounter Miscellaneous Notes * Telephone Encounter - Gerson Eisenberg - 01/04/2024 6015 EDT 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 ([facility]) BENEFIT VERIFICATION: Facility : Facility Tax ID: [id number] CPT [id number] Primary Insurance: Medicare A/B - - Ins - In Network: Y Secondary Insurance: N/A - Member ID#: N/A - Ins Phone: N/A - In Network: N/A Authorizations Requirements for CPT 98432: - Prior Auth is NOT required for 2023 TPL Benefits: Medicare IP Benefits: Copay of $1,632 per Benefit Period - (Benefit Period ends when patient has not had any IP hospital care for 60 days in a row) In addition, in each Benefit Period: Days 1-60: $0 Days 61-90: $400 Copay per Day Days 91+: $800 Copay per each Lifetime [place] Day (up to 60 days over your lifetime) Each day after all Lifetime [place] Days used: All costs Benefits Verified By: AROLDO Bone Navigator documented in this encounter Plan of Treatment Upcoming Encounters Date Type Department Care Team (Late st Contact Info) Description 12/06/2024 6:45 EST Treatment [facility] [address] [place], [place] [phone] Carlota Jin MD 1 [facility], [facility] 2 [place] [phone] 12/08/2024 6:45 EST Treatment [facility] [address] [place], [place] [id number] Carlota Jin MD 1 [facility], [facility] 2 [place] [phone] 12/11/2024 6:45 EST Treatment [facility] [place] [address] [place] [address] Carlota Jin MD 1 [facility], [facility] 2 [place] [phone] 12/13/2024 6:45 EST Treatment [facility] [place] [address] [place], [place] [id number] Carlota Jin MD 1 [facility], [address] [phone] 12/15/2024 6:45 EST Treatment [facility] [place] [address] [place] [address] Carlota Jin MD 1 [facility], [facility] [address] [place] [phone] 12/18/2024 6:45 EST Treatment [facility] [place] [address] [place], [place] [id number] Carlota Jin MD 1 [facility], [facility] 2 [place] [phone] 12/20/2024 6:45 EST Treatment [facility] [place] [address] [place], [place] [id number] Carlota Jin MD 1 [facility], [facility] 2 [place] [phone] 12/22/2024 6:45 EST Treatment [facility] [place] [address] [place], [place] [phone] Carlota Jin MD 1 [facility], [facility] 2 [place] [phone] 12/25/2024 6:45 EST Treatment [facility] [place] [address] [place], [place] [phone] Carlota Jin MD 1 [facility], [facility] 2 [place] [phone] 12/27/2024 6:45 EST Treatment [facility] [place] [address] [place], [place] [address] Carlota Jin MD 1 [facility], [facility] 2 [place] [phone] 12/29/2024 6:45 EST Treatment [facility] [place] [address] [place], [place] [phone] Carlota Jin MD 1 [facility], [facility] [address] [place] [phone] 01/01/2025 6:45 EDT Treatment [facility] [place] [address] [place], [place] [phone] Carlota Jin MD 1 [facility], [facility] 2 [place] [phone] 01/03/2025 6:45 EDT Treatment [facility] [place] [address] [place] [address] Carlota Jin MD 1 [facility], [address] [phone] 01/05/2025 6:45 EDT Treatment [facility] [place] [address] [place], [place] [phone] Carlota Jin MD 1 [facility], [address] [phone] 01/08/2025 6:45 EDT Treatment [facility] [place] [address] [place], [place] [id number] Carlota Jin MD 1 [facility], [address] [phone] 01/10/2025 6:45 EDT Treatment [facility] [place] [address] [place], [place] [phone] Carlota Jin MD 1 [facility], [facility] 2 [place] [phone] 01/12/2025 6:45 EDT Treatment [facility] [place] [address] [place], [place] [id number] Carlota Jin MD 1 [facility], [facility] 2 [place] [phone] 01/15/2025 6:45 EDT Treatment [facility] [place] [address] [place], [place] [id number] Carlota Jin MD 1 [facility], [facility] 2 [place] [phone] 01/17/2025 6:45 EDT Treatment [facility] [place] [address] [place], [place] [phone] Carlota Jin MD 1 [facility], [facility] 2 [place] [phone] 01/19/2025 6:45 EDT Treatment [facility] [place] [address] [place] [address] Carlota Jin MD 1 [facility], [address] [phone] 01/22/2025 6:45 EDT Treatment [facility] [place] [address] [place], [place] [id number] Carlota Jin MD 1 [facility], [facility] 2 [place] [phone] 01/24/2025 6:45 EDT Treatment [facility] [place] [address] [place], [place] [id number] Carlota Jin MD 1 [facility], [facility] 2 [place] [phone] 01/26/2025 6:45 EDT Treatment [facility] [place] [address] [place], [place] [address]215 Carlota Jin MD 1 [facility], [facility] 2 [place] [phone] 01/29/2025 6:45 EDT Treatment [facility] [place] [address] [place], [place] [id number] Carlota Jin MD 1 [facility], [facility] 2 [place] [phone] 01/31/2025 6:45 EDT Treatment [facility] [place] [address] [place], [place] [id number] Carlota Jin MD 1 [facility], [address] [phone] 02/02/2025 6:45 EDT Treatment [facility] [place] [address] [place], [place] [id number] Carlota Jin MD [address] [phone] 02/05/2025 6:45 EDT Treatment [facility] [place] [address] [place], [place] [id number] Carlota Jin MD [address] [phone] 02/07/2025 6:45 EDT Treatment [facility] [place] [address] [place], [place] [phone] Carlota Jin MD 1 [facility] 2 [place] [phone] 02/09/2025 6:45 EDT Treatment [facility] [place] [address] [place], [place] 6632[address] Carlota Jin MD 1 [facility], [facility] 2 [place] [phone] 02/12/2025 6:45 EDT Treatment [facility] [place] [address] [place], [place] [phone] Carlota Jin MD 1 [facility], [facility] 2 [place] [phone] 02/14/2025 6:45 EDT Treatment [facility] [place] [address] [place], [place] [id number] Carlota Jin MD 1 [facility], [facility] 2 [place] [phone] 02/16/2025 6:45 EDT Treatment [facility] [place] [address] [place] [address] Carlota Jin MD 1 [facility], [facility] 2 [place] [phone] 02/19/2025 6:45 EDT Treatment [facility] [place] [address] [place], [place] [address] Carlota Jin MD 1 [facility], [facility] 2 [place] [phone] 02/21/2025 6:45 EDT Treatment [facility] [place] [address] [place], [place] [address]285 Carlota Jin MD 1 [facility], Level [address] [place] [phone] documented as of this encounter Visit Diagnoses Not on filedocumented in this encounter Care Teams Linderman Machine Operator Relationship Specialty Start Date End Date Ken Greer MD [address] [place] [address] PCP - General 07/07/23 documented as of this encounter
--- OUTSIDE RECORDS SUMMARY | 2024-12-05 12:11 | XMS_ITS | Encounter Summary ---
Author Organization [facility] Address [address] [place] [address] Care Team Providers Care Regional Construction Manager Name Role Phone Ken Greer MD Primary Care Provider [phone] Encounter Details Date Type Department Care Team (Latest Contact Info) Description 01/03/2024 6:45 EDT Treatment [place] [address] [place], [place] [phone] Carlota Jin MD 1 [facility], Level [address] [place] [phone] ESRD (end stage renal disease) ([facility]) (Primary Dx); Anemia of chronic renal failure, unspecified CKD stage; Hypoalbuminemia; Secondary hyperparathyroidism ([facility]); Diabetic foot infection ([facility]) Social History Tobacco Use Types Packs/Day Years [...] - Temperature - - Respiratory Rate 16 01/03/2024 0624 EDT Oxygen Saturation - - Inhaled Oxygen Concentration - - Weight 90.4 kg (199 lb 4.7 oz) 01/03/2024 0628 E DT Height - - Body Mass Index 28.6 12/20/2023 2202 EST documented in this encounter [...] Flowsheet Note - Marcela Cox RN - 01/03/2024 1404 EDT 01/03/24 1042 Post-Hemodialysis Assessment Total Blood Processed (L) 89.97 Liters On Line Clearance: spKt/V 1.4 spKt/V Dialyzer Clearance Lightly streaked Treatment UFR (ml:kg:hr) 7.92 ml:kg:hr Final Critline Profile (%/hr) -1.74 Final Profile Profile A Critline refill Negative (H1: 24.3 H2:24.1) Fluid Removed (L) 4 L Post-Dialysis Scale Weight 109.4 kg (241 lb 2.9 oz) Wheelchair Weight 20.9 kg (46 lb 1.2 oz) Prosthesis Weight 0.9 kg (1 lb 15.8 oz) Post-Treatment Weight (kg) 87.6 Treatment Weight Change (kg) 2.8 kg Day Target Weight (kg) 86.9 Post Sitting/Lying BP 129/71 Post Sitting/Lying pulse 59 Temp 36.1 ??C (97 ??F) Temp src [...] Dialysis Rounding - Carlota Jin MD - 01/03/2024 0645 EDT TELEMEDICINE VIDEO VISIT Today's visit was provided through telemedicine video conferencing: I have reviewed the appropriateness of using video technology with the patient with regards to today's visit. The location of the patient : Not at home (another medical/non-medical, personal spaces outside [facility]) The location of the provider: Office The following people and their roles were present for today's visit: Appointment Provider: Carlota Jin MD RN Carlota Jin MD Dialysis Provider's Routine Assessment Gerson Bruner was seen and examined as appropriate during Dialysis. Pertinent lab results were reviewed. Changes since last visit: None Changes to current prescriptions/orders: None Was hospitalized with diabetic foot infection. On IV abx. Will monitor. No other acute issues at this time. Carlota Jin MD The concept of ???Telemedicine?? [...] Contact Info) Description 12/06/2024 6:45 EST Treatment [place] [address] [place], [place] [id number] Carlota Jin MD 1 [facility], [facility] 2 [place] [phone] 12/08/2024 6:45 EST Treatment [place] [address] [place], [place] [phone] Carlota Jin MD [address] [place] [address], [address] [phone] 12/11/2024 6:45 EST Treatment [facility] [address] [place], [place] [phone] Carlota Jin MD 1 [facility] 2 [place] [phone] 12/13/2024 6:45 EST Treatment [place] [address] [place], [place] [id number] Carlota Jin MD [address] [facility] 2 [place] [phone] 12/15/2024 6:45 EST Treatment [place] [address] [place], [place] [phone] Carlota Jin MD 1 [facility], Level [address] [place] [phone] 12/18/2024 6:45 EST Treatment [facility] [place] [address] [place], [place] [id number] Carlota Jin MD 1 [facility], [facility] 2 [place] [phone] 12/20/2024 6:45 EST Treatment [facility] [place] [address] [place], [place] [id number] Carlota Jin MD 1 [facility], [facility] 2 [place] [phone] 12/22/2024 6:45 EST Treatment [facility] [place] [address] [place], [place] [phone] Carlota Jin MD 1 [facility], [facility] 2 [place] [phone] 12/25/2024 6:45 EST Treatment [facility] [place] [address] [place], [place] [phone] Carlota Jin MD 1 [facility], [facility] 2 [place] [phone] 12/27/2024 6:45 EST Treatment [facility] [place] [address] [place], [place] [id number] Carlota Jin MD 1 [facility], [facility] 2 [place] [phone] 12/29/2024 6:45 EST Treatment [facility] [place] [address] [place], [place] [id number] Carlota Jin MD 1 [facility], [facility] 2 [place] [phone] 01/01/2025 6:45 EDT Treatment [facility] [place] [address] [place], [place] [id number] Carlota Jin MD 1 [facility], [facility] 2 [place] [phone] 01/03/2025 6:45 EDT Treatment [facility] [place] [address] [place] [address] Carlota Jin MD 1 [facility], [address] [phone] 01/05/2025 6:45 EDT Treatment [facility] [place] [address] [place], [place] [id number] Carlota Jin MD 1 [facility], [facility] 2 [place] [phone] 01/08/2025 6:45 EDT Treatment [facility] [place] [address] [place], [place] [id number] Carlota Jin MD 1 [facility], [facility] 2 [place] [phone] 01/10/2025 6:45 EDT Treatment [facility] [place] [address] [place] [address] Carlota Jin MD 1 [facility], [facility] 2 [place] [phone] 01/12/2025 6:45 EDT Treatment [facility] [place] [address] [place] [address] Carlota Jin MD 1 [facility], [facility] 2 [place] [phone] 01/15/2025 6:45 EDT Treatment [facility] [place] [address] [place] [address] Carlota Jin MD 1 [facility], [address] [phone] 01/17/2025 6:45 EDT Treatment [facility] [place] [address] [place] [address] Carlota Jin MD 1 [facility], [address] [phone] 01/19/2025 6:45 EDT Treatment [facility] [place] [address] [place] [address] Carlota Jin MD 1 [facility], [facility] 2 [place] [phone] 01/22/2025 6:45 EDT Treatment [facility] [place] [address] [place], [place] [phone] Carlota Jin MD 1 [facility], [facility] 2 [place] [phone] 01/24/2025 6:45 EDT Treatment [facility] [place] [address] [place], [place] [address] Carlota Jin MD 1 [facility], [facility] 2 [place] [phone] 01/26/2025 6:45 EDT Treatment [facility] [place] [address] [place], [place] [phone] Carlota Jin MD 1 [facility], [facility] 2 [place] [phone] 01/29/2025 6:45 EDT Treatment [facility] [place] [address] [place], [place] [address] Carlota Jin MD 1 [facility], [facility] 2 [place] [phone] 01/31/2025 6:45 EDT Treatment [facility] [place] [address] [place] [address] Carlota Jin MD 1 [facility], [facility] 2 [place] [phone] 02/02/2025 6:45 EDT Treatment [facility] [place] [address] [place], [place] [id number] Carlota Jin MD 1 [facility], [facility] 2 [place] [phone] 02/05/2025 6:45 EDT Treatment [facility] [place] [address] [place], [place] [address] Carlota Jin MD 1 [facility], [address] [phone] 02/07/2025 6:45 EDT Treatment [facility] [place] [address] [place], [place] [id number] Carlota Jin MD 1 [facility], [address] [phone] 02/09/2025 6:45 EDT Treatment [facility] [place] [address] [place], [place] [id number] Carlota Jin MD 1 [facility], [address] [phone] 02/12/2025 6:45 EDT Treatment [facility] [place] [address] [place], [place] [id number] Carlota Jin MD [address] [phone] 02/14/2025 6:45 EDT Treatment [facility] [place] [address] [place], [place] [phone] Carlota Jin MD [address] [phone] 02/16/2025 6:45 EDT Treatment [facility] [place] [address] [place], [place] [id number] Carlota Jin MD 1 [facility], [address] [phone] 02/19/2025 6:45 EDT Treatment [facility] [place] [address] [place], [place] [id number] Carlota Jin MD 1 [facility], [address] [phone] 02/21/2025 6:45 EDT Treatment [facility] [place] [address] [place] [address] Carlota Jin MD 1 [facility], [address] [phone] documented as of this encounter Procedures Procedure Name Priority Date/Time Associated Diagnosis Comments HEMODIALYSIS Routine 01/03/2024 6:24 EDT ESRD (end stage renal disease) ([facility]) documented in this encounter Visit Diagnoses Diagnosis ESRD (end stage renal disease) ([facility])- Primary End stage renal disease Anemia of chronic renal failure, unspecified CKD stage Hypoalbuminemia Other disorders of plasma protein metabolism Secondary hyperparathyroidism ([facility]) Secondary hyperparathyroidism (of renal origin) Diabetic foot infection ([facility]) Type II or unspecified type diabetes mellitus with other specified manifestations, not stated as uncontrolled documented in this encounter Administered Medications Inactive Administered Medications - up to 3 most recent administrations Medication Order MAR Action Action Date Dose Rate Site calcium carbonate (TUMS) tablet 500 mg (200 mg elemental calcium) 2 Tablet 2 Tablet, oral, ONCE IN DIALYSIS, 1 dose, On Wed01/03/24 at 0645, Routine, DialysisIndications:ESRD (end stage renal disease) ([facility]-CMS),Secondary hyperparathyroidism ([facility]) Given 01/03/2024 6:50 EDT 2 Tablets epoetin ken (EPOGEN) 20,000 unit/2 mL injection 2,000 Units 2,000 Units, intravenous, ONCE IN DIALYSIS, 1 dose, On Wed01/03/24 at 0645, Routine, DialysisIndications:ESRD (end stage renal disease) ([facility]),Anemia of chronic renal failure, unspecified CKD stage Given 01/03/2024 6:49 EDT 2,000 Units ertapenem (INVANZ) 1,000 mg in sodium chloride (PF) 10 mL Syringe 1,000 mg, intravenous, Administer over 5 Minutes, ONCE IN DIALYSIS, 1 dose, On Wed01/03/24 at 0645, Type of Therapy: Definitive, Based on Cultures, Suspected Indication (Select all that apply): Polymicrobial DM foot infection, RoutineIndications:Diabetic foot infection ([facility]) Given 01/03/2024 10:40 EDT 1,000 mg heparin injection 9,000 Units 9,000 Units, intravenous, ONCE IN DIALYSIS, 1 dose, On Wed01/03/24 at 0645, Routine, Dialysis, Now x1 bolus 4500 units to be given at the beginning of dialysis 1500 units/hour to be given over the course of dialysis (9000 units total). Stop 1 hour prior to end of treatment. To be administered per Policy [id number].Indications:ESRD (end stage renal disease) ([facility]) Given 01/03/2024 6:48 EDT 9,000 Units LiquaCel liquid protein liquid 30 mL 30 mL, oral, ONCE IN DIALYSIS, 1 dose, On Wed01/03/24 at 0645, RoutineIndications:ESRD (end stage renal disease) ([facility]),Hypoalbuminemia Given 01/03/2024 6:49 EDT 30 mL vancomycin 850 mg central line syringe 50 mg/mL 850 mg, central line, Administer over 60 Minutes, ONCE IN DIALYSIS, 1 dose, On Wed01/03/24 at 0645, Routine, Suspected Indication (Select all that apply): Moderate or Severe DM foot infectionIndications:Diabetic foot infection ([facility]) Given 01/03/2024 9:40 EDT 850 mg documented in this encounter Orders Dialysis Count Last Ordered Date First Orde red Date HEMODIALYSIS 1 01/03/2024 documented in this encounter Care Teams Regional Construction Manager Relationship Specialty Start Date End Date Ken Greer MD [address] [place] [address] PCP - General 07/07/23 documented as of this encounter
--- OUTSIDE RECORDS SUMMARY | 2024-12-05 12:11 | XMS_ITS | Encounter Summary ---
Author Organization [facility] Address [address] [place] [address] Care Team Providers Care Chain Builder Loom Control Name Role Phone Ken Greer MD Primary Care Provider [phone] Encounter Details Date Type Department Care Team (Late st Contact Info) Description 12/31/2023 Documentation Visit [address] [place], [place] [address] Melissa Crespo, RN Social History Tobacco Use [...] [facility] [place] [address] [place], [place] [phone] Carlota Jin MD 1 [facility], [facility] 2 [place] [phone] 12/08/2024 6:45 EST Treatment [facility] [place] [address] [place], [place] [phone] Carlota Jin MD 1 [facility] 2 [place] [phone] 12/11/2024 6:45 EST Treatment [facility] [place] [address] [place], [place] [phone] Carlota Jin MD 1 [facility], [facility] 2 [place] [phone] 12/13/2024 6:45 EST Treatment [facility] [address] [place], [place] [id number] Carlota Jin MD 1 [facility] [address] [place] [phone] 12/15/2024 6:45 EST Treatment [facility] [place] [address] [place], [place] [id number] Carlota Jin MD 1 [facility], [facility] [address] [place] [phone] 12/18/2024 6:45 EST Treatment [facility] [place] [address] [place], [place] [id number] Carlota Jin MD 1 [facility], [facility] 2 [place] [phone] 12/20/2024 6:45 EST Treatment [facility] [place] [address] [place], [place] [id number] Carlota Jin MD 1 [facility], [facility] 2 [place] [phone] 12/22/2024 6:45 EST Treatment [facility] [address] [place], [place] [id number] Carlota Jin MD 1 [facility], [facility] [address] [place] [phone] 12/25/2024 6:45 EST Treatment [facility] [address] [place], [place] [id number] Carlota Jin MD 1 [facility], [facility] [address] [place] [phone] 12/27/2024 6:45 EST Treatment [facility] [place] [address] [place], [place] [id number] Carlota Jin MD 1 [facility], [facility] 2 [place] [phone] 12/29/2024 6:45 EST Treatment [facility] [place] [address] [place], [place] [id number] Carlota Jin MD 1 [facility], [address] [phone] 01/01/2025 6:45 EDT Treatment [facility] [place] [address] [place], [place] [id number] Carlota Jin MD 1 [facility], [address] [phone] 01/03/2025 6:45 EDT Treatment [facility] [place] [address] [place], [place] [id number] Carlota Jin MD 1 [facility], [address] [phone] 01/05/2025 6:45 EDT Treatment [facility] [place] [address] [place], [place] [id number] Carlota Jin MD [address] [place] [address], [facility] 2 [place] [phone] 01/08/2025 6:45 EDT Treatment [facility] [place] [address] [place], [place] [id number] Carlota Jin MD 1 [facility] [address] [place] [phone] 01/10/2025 6:45 EDT Treatment [facility] [place] [address] [place], [place] [address] Carlota Jin MD 1 [facility], [facility] 2 [place] [phone] 01/12/2025 6:45 EDT Treatment [facility] [place] [address] [place], [place] [id number] Carlota Jin MD 1 [facility], [facility] 2 [place] [phone] 01/15/2025 6:45 EDT Treatment [facility] [place] [address] [place], [place] [id number] Carlota Jin MD 1 [facility], [facility] [address] [place] [phone] 01/17/2025 6:45 EDT Treatment [facility] [address] [place], [place] [id number] Carlota Jin MD 1 [facility], [facility] 2 [place] [phone] 01/19/2025 6:45 EDT Treatment [facility] [address] [place], [place] [phone] Carlota Jin MD 1 [facility], [facility] 2 [place] [phone] 01/22/2025 6:45 EDT Treatment [facility] [place] [address] [place], [place] [id number] Carlota Jin MD 1 [facility], [facility] 2 [place] [phone] 01/24/2025 6:45 EDT Treatment [facility] [place] [address] [place], [place] [id number] Carlota Jin MD 1 [facility], [facility] 2 [place] [phone] 01/26/2025 6:45 EDT Treatment [facility] [place] [address] [place], [place] [phone] Carlota Jin MD 1 [facility], [facility] 2 [place] [phone] 01/29/2025 6:45 EDT Treatment [facility] [place] [address] [place], [place] [id number] Carlota Jin MD 1 [facility], [facility] 2 [place] [phone] 01/31/2025 6:45 EDT Treatment [facility] [place] [address] [place], [place] [id number] Carlota Jin MD 1 [facility], [facility] 2 [place] [phone] 02/02/2025 6:45 EDT Treatment [facility] [place] [address] [place], [place] [phone] Carlota Jin MD 1 [facility], [facility] 2 [place] [phone] 02/05/2025 6:45 EDT Treatment [facility] [place] [address] [place], [place] [phone] Carlota Jin MD 1 [facility], [facility] 2 [place] [phone] 02/07/2025 6:45 EDT Treatment [facility] [place] [address] [place] [address] Carlota Jin MD 1 [facility], [address] [phone] 02/09/2025 6:45 EDT Treatment [facility] [place] [address] [place], [place] [id number] Carlota Jin MD 1 [facility], [address] [phone] 02/12/2025 6:45 EDT Treatment [facility] [place] [address] [place] [address] Carlota Jin MD 1 [facility], [facility] 2 [place] [phone] 02/14/2025 6:45 EDT Treatment [facility] [place] [address] [place], [place] [id number] Carlota Jin MD 1 [facility], [facility] 2 [place] [phone] 02/16/2025 6:45 EDT Treatment [facility] [address] [place], [place] [id number] Carlota Jin MD 1 [facility], [facility] 2 [place] [phone] 02/19/2025 6:45 EDT Treatment [facility] [address] [place], [place] [id number] Carlota Jin MD [address] [place] [address], [facility] [address] [place] [phone] 02/21/2025 6:[address] [facility] [address] [place], [place] [phone] Carlota Jin MD [address] [place] [address], [facility] 2 [place] [phone] documented as of this encounter Visit Diagnoses Not on filedocumented in this encounter Care Teams Chain Builder Loom Control Relationship Specialty Start Date End Date [place] [address] PCP - General 07/07/23 documented as of this encounter
--- OUTSIDE RECORDS SUMMARY | 2024-12-05 12:11 | XMS_ITS | Encounter Summary ---
Author Organization [facility] Address [address] [place] [address] Care Team Providers Care Hardwood Floor Installation Helper Name Role Phone Ken Greer MD Primary Care Provider [phone] Encounter Details Date Type Department Care Team (Late st Contact Info) Description 01/04/2024 Orders Only [facility] [address] [place], [place] [address] Yoanna Degroot, VIDYA Social History Tobacco Use [...] EST Treatment [facility] [facility] [place] [address] [place], [place] [phone] Carlota Jin MD 1 [facility], [facility] 2 [place] [phone] 12/08/2024 6:45 EST Treatment [facility] [address] [place], [place] [id number] Carlota Jin MD 1 [facility] 2 [place] [phone] 12/11/2024 6:45 EST Treatment [facility] [place] [address] [place], [place] [id number] Carlota Jin MD 1 [facility], [facility] 2 [place] [phone] 12/13/2024 6:45 EST Treatment [facility] [address] [place], [place] [phone] Carlota Jin MD 1 [facility] 2 [place] [phone] 12/15/2024 6:45 EST Treatment [facility] [address] [place], [place] [id number] Carlota Jin MD 1 [facility] 2 [place] [phone] 12/18/2024 6:45 EST Treatment [facility] [place] [address] [place], [place] [id number] Carlota Jin MD 1 [facility], [facility] 2 [place] [phone] 12/20/2024 6:45 EST Treatment [facility] [place] [address] [place], [place] [id number] Carlota Jin MD 1 [facility], [facility] 2 [place] [phone] 12/22/2024 6:45 EST Treatment [facility] [address] [place], [place] [id number] Carlota Jin MD 1 [facility] 2 [place] [phone] 12/25/2024 6:45 EST Treatment [facility] [address] [place], [place] [id number] Carlota Jin MD 1 [facility], [facility] 2 [place] [phone] 12/27/2024 6:45 EST Treatment [facility] [place] [address] [place], [place] [id number] Carlota Jin MD 1 [facility], [facility] 2 [place] [phone] 12/29/2024 6:45 EST Treatment [facility] [place] [address] [place], [place] [id number] Carlota Jin MD 1 [facility], [address] [phone] 01/01/2025 6:45 EDT Treatment [facility] [place] [address] [place], [place] [id number] Carlota Jin MD 1 [facility], [address] [phone] 01/03/2025 6:45 EDT Treatment [facility] [place] [address] [place], [place] [id number] Carlota Jin MD 1 [facility], [address] [phone] 01/05/2025 6:45 EDT Treatment [facility] [address] [place], [place] [id number] Carlota Jin MD [address] [place] [address], [facility] 2 [place] [phone] 01/08/2025 6:45 EDT Treatment [facility] [place] [address] [place], [place] [id number] Carlota Jin MD 1 [facility] [address] [place] [phone] 01/10/2025 6:45 EDT Treatment [facility] [place] [address] [place], [place] [address] Carlota Jin MD 1 [facility], [facility] 2 [place] [phone] 01/12/2025 6:45 EDT Treatment [facility] [place] [address] [place], [place] [id number] Carlota Jin MD 1 [facility], [facility] 2 [place] [phone] 01/15/2025 6:45 EDT Treatment [facility] [place] [address] [place], [place] [id number] Carlota Jin MD 1 [facility] 2 [place] [phone] 01/17/2025 6:45 EDT Treatment [facility] [address] [place], [place] [phone] Carlota Jin MD 1 [facility] 2 [place] [phone] 01/19/2025 6:45 EDT Treatment [facility] [address] [place], [place] [phone] Carlota Jin MD 1 [facility] [address] [place] [phone] 01/22/2025 6:45 EDT Treatment [facility] [place] [address] [place], [place] [id number] Carlota Jin MD 1 [facility], [facility] 2 [place] [phone] 01/24/2025 6:45 EDT Treatment [facility] [place] [address] [place], [place] [id number] Carlota Jin MD 1 [facility], [facility] 2 [place] [phone] 01/26/2025 6:45 EDT Treatment [facility] [place] [address] [place], [place] [id number] Carlota Jin MD 1 [facility], [facility] 2 [place] [phone] 01/29/2025 6:45 EDT Treatment [facility] [address] [place], [place] [id number] Carlota Jin MD 1 [facility], [facility] 2 [place] [phone] 01/31/2025 6:45 EDT Treatment [facility] [place] [address] [place], [place] [id number] Carlota Jin MD 1 [facility], [facility] 2 [place] [phone] 02/02/2025 6:45 EDT Treatment [facility] [address] [place], [place] [id number] Carlota Jin MD 1 [facility], [facility] 2 [place] [phone] 02/05/2025 6:45 EDT Treatment [facility] [place] [address] [place], [place] [id number] Carlota Jin MD 1 [facility], [facility] 2 [place] [phone] 02/07/2025 6:45 EDT Treatment [facility] [place] [address] [place] [address] Carlota Jin MD 1 [facility], [address] [phone] 02/09/2025 6:45 EDT Treatment [facility] [address] [place], [place] [id number] Carlota Jin MD 1 [facility], [address] [phone] 02/12/2025 6:45 EDT Treatment [facility] [place] [address] [place] [address] Carlota Jin MD 1 [facility], [facility] 2 [place] [phone] 02/14/2025 6:45 EDT Treatment [facility] [place] [address] [place], [place] [id number] Carlota Jni MD 1 [facility], [facility] 2 [place] [phone] 02/16/2025 6:45 EDT Treatment [facility] [address] [place], [place] [id number] Carlota Jin MD 1 [facility], [facility] 2 [place] [phone] 02/19/2025 6:45 [facility] [address] [place], [place] [id number] Carlota Jin MD [address] [place] [address], [facility] 2 [place] [phone] 02/21/2025 6:45 EDT Treatment [facility] [address] [place], [place] [id number] Carlota Jin MD [address] [place] [address], [facility] [address] [place] [phone] documented as of this encounter Visit Diagnoses Not on filedocumented in this encounter Care Teams Hardwood Floor Installation Helper Relationship Specialty Start Date End [place] [address] PCP - General 07/07/23 documented as of this encounter
--- OUTSIDE RECORDS SUMMARY | 2024-12-05 12:11 | XMS_ITS | Encounter Summary ---
Author Organization [facility] Address [address] [place] [address] Care Team Providers Care General Pediatrician Name Role Phone Ken Greer MD Primary Care Provider [phone] Encounter Details Date Type Department Care Team (Late st Contact Info) Description 12/31/2023 Orders Only [facility] [address] [place], [place] [address] Yoanna Degroot, VIDYA Social History Tobacco Use [...] 6:45 EST Treatment [facility] [place] [address] [place], [place] [id number] Carlota Jin MD 1 [facility], [facility] [address] [place] [phone] 12/08/2024 6:45 EST Treatment [facility] [place] [address] [place], [place] [id number] Carlota Jin MD 1 [facility] [address] [place] [phone] 12/11/2024 6:45 EST Treatment [facility] [place] [address] [place], [place] [id number] Carlota Jin MD 1 [facility], [facility] [address] [place] [phone] 12/13/2024 6:45 EST Treatment [facility] [address] [place], [place] [id number] Carlota Jin MD 1 [facility], [facility] [address] [place] [phone] 12/15/2024 6:45 EST Treatment [facility] [place] [address] [place], [place] [id number] Carlota Jin MD 1 [facility], [facility] [address] [place] [phone] 12/18/2024 6:45 EST Treatment [facility] [place] [address] [place], [place] [id number] Carlota Jin MD 1 [facility], [facility] [address] [place] [phone] 12/20/2024 6:45 EST Treatment [facility] [place] [address] [place], [place] [id number] Carlota Jin MD 1 [facility], [facility] [address] [place] [phone] 12/22/2024 6:45 EST Treatment [facility] [address] [place], [place] [phone] Carlota Jin MD 1 [facility], [facility] [address] [place] [phone] 12/25/2024 6:45 EST Treatment [facility] [address] [place], [place] [id number] Carlota Jin MD 1 [facility], [facility] [address] [place] [phone] 12/27/2024 6:45 EST Treatment [facility] [place] [address] [place], [place] [id number] Carlota Jin MD 1 [facility], [facility] [address] [place] [phone] 12/29/2024 6:45 EST Treatment [facility] [place] [address] [place], [place] [id number] Carlota Jin MD 1 [facility], [address] [phone] 01/01/2025 6:45 EDT Treatment [facility] [place] [address] [place], [place] [id number] Carlota Jin MD 1 [facility], [address] [phone] 01/03/2025 6:45 EDT Treatment [facility] [place] [address] [place], [place] [id number] Carlota Jin MD 1 [facility], [address] [phone] 01/05/2025 6:45 EDT Treatment [facility] [place] [address] [place], [place] [id number] Carlota Jin MD [address] [place] [address], [facility] [address] [place] [phone] 01/08/2025 6:45 EDT Treatment [facility] [place] [address] [place], [place] [id number] Carlota Jin MD 1 [facility], Level [address] [place] [phone] 01/10/2025 6:45 EDT Treatment [facility] [place] [address] [place], [place] [id number] Carlota Jin MD 1 [facility], [facility] [address] [place] [phone] 01/12/2025 6:45 EDT Treatment [facility] [place] [address] [place], [place] [id number] Carlota Jin MD 1 [facility], [facility] [address] [place] [phone] 01/15/2025 6:45 EDT Treatment [facility] [place] [address] [place], [place] [id number] Carlota Jin MD 1 [facility], [facility] [address] [place] [phone] 01/17/2025 6:45 EDT Treatment [facility] [address] [place], [place] [id number] Carlota Jin MD 1 [facility], [facility] [address] [place] [phone] 01/19/2025 6:45 EDT Treatment [facility] [address] [place], [place] [id number] Carlota Jin MD 1 [facility], [facility] [address] [place] [phone] 01/22/2025 6:45 EDT Treatment [facility] [place] [address] [place], [place] [id number] Carlota Jin MD 1 [facility], [facility] [address] [place] [phone] 01/24/2025 6:45 EDT Treatment [facility] [place] [address] [place], [place] [id number] Carlota Jin MD 1 [facility], [facility] [address] [place] [phone] 01/26/2025 6:45 EDT Treatment [facility] [place] [address] [place], [place] [id number] Carlota Jin MD 1 [facility], [facility] [address] [place] [phone] 01/29/2025 6:45 EDT Treatment [facility] [place] [address] [place], [place] [id number] Carlota Jin MD 1 [facility], [facility] [address] [place] [phone] 01/31/2025 6:45 EDT Treatment [facility] [place] [address] [place], [place] [id number] Carlota Jin MD 1 [facility], [facility] [address] [place] [phone] 02/02/2025 6:45 EDT Treatment [facility] [place] [address] [place], [place] [id number] Carlota Jin MD 1 [facility], [facility] [address] [place] [phone] 02/05/2025 6:45 EDT Treatment [facility] [place] [address] [place], [place] [id number] Carlota Jin MD 1 [facility], [facility] [address] [place] [phone] 02/07/2025 6:45 EDT Treatment [facility] [place] [address] [place] [address] Carlota Jin MD 1 [facility], [address] [phone] 02/09/2025 6:45 EDT Treatment [facility] [place] [address] [place], [place] [id number] Carlota Jin MD 1 [facility], [address] [phone] 02/12/2025 6:45 EDT Treatment [facility] [place] [address] [place] [id number] Carlota Jin MD 1 [facility], [facility] [address] [place] [phone] 02/14/2025 6:45 EDT Treatment [facility] [place] [address] [place], [place] [id number] Carlota Jin MD 1 [facility], [facility] [address] [place] [phone] 02/16/2025 6:45 EDT Treatment [facility] [address] [place], [place] [id number] Carlota Jin MD 1 [facility], [facility] [address] [place] [phone] 02/19/2025 6:45 EDT Treatment [facility] [address] [place], [place] [phone] Carlota Jin MD [address] [place] [address], [facility] [address] [place] [phone] 02/21/2025 6:45 EDT Treatment [facility] [address] [place], [place] [id number] Carlota Jin MD [address] [place] [address], [facility] [address] [place] [phone] documented as of this encounter Visit Diagnoses Not on filedocumented in this encounter Care Teams General Pediatrician Relationship Specialty Start Date End Date [place] [address] PCP - General 07/07/23 documented as of this encounter
--- OUTSIDE RECORDS SUMMARY | 2024-12-05 12:11 | XMS_ITS | Encounter Summary ---
Author Organization [facility] Address [address] [place] [address] Care Team Providers Care Absorption Plant Operator Helper Name Role Phone Ken Greer MD Primary Care Provider [phone] Encounter Details Date Type Department Care Team (Late st Contact Info) Description 12/24/2023 Documentation Visit [address] [place], [place] [address] Melissa Crespo, RN Social History Tobacco Use [...] Treatment [facility] [place] [address] [place], [place] [phone] Carlota Jin MD 1 [facility], [facility] 2 [place] [phone] 12/08/2024 6:45 EST Treatment [facility] [place] [address] [place], [place] [id number] Carlota Jin MD 1 [facility] [address] [place] [phone] 12/11/2024 6:45 EST Treatment [facility] [place] [address] [place], [place] [id number] Carlota Jin MD 1 [facility], [facility] [address] [place] [phone] 12/13/2024 6:45 EST Treatment [facility] [address] [place], [place] [id number] Carlota Jin MD 1 [facility], [facility] [address] [place] [phone] 12/15/2024 6:45 EST Treatment [facility] [place] [address] [place], [place] [id number] Carlota Jin MD 1 [facility], [facility] [address] [place] [phone] 12/18/2024 6:45 EST Treatment [facility] [place] [address] [place], [place] [id number] Carlota Jin MD 1 [facility], [facility] [address] [place] [phone] 12/20/2024 6:45 EST Treatment [facility] [place] [address] [place], [place] [id number] Carlota Jin MD 1 [facility], [facility] [address] [place] [phone] 12/22/2024 6:45 EST Treatment [facility] [address] [place], [place] [id number] Carlota Jin MD 1 [facility], [facility] [address] [place] [phone] 12/25/2024 6:45 EST Treatment [facility] [address] [place], [place] [id number] Carlota Jin MD 1 [facility], [facility] [address] [place] [phone] 12/27/2024 6:45 EST Treatment [facility] [place] [address] [place], [place] [id number] Carlota Jin MD 1 [facility], [facility] [address] [place] [phone] 12/29/2024 6:45 EST Treatment [facility] [place] [address] [place], [place] [id number] Carlota Jin MD 1 [facility], [address] [phone] 01/01/2025 6:45 EDT Treatment [facility] [place] [address] [place], [place] [id number] Carlota Jin MD 1 [facility], [address] [phone] 01/03/2025 6:45 EDT Treatment [facility] [place] [address] [place], [place] [id number] Carlota Jin MD 1 [facility], [address] [phone] 01/05/2025 6:45 EDT Treatment [facility] [place] [address] [place], [place] [id number] Carlota Jin MD [address] [place] [address], [facility] [address] [place] [phone] 01/08/2025 6:45 EDT Treatment [facility] [place] [address] [place], [place] [id number] Carlota Jin MD 1 [facility] [address] [place] [phone] 01/10/2025 6:45 EDT Treatment [facility] [place] [address] [place], [place] [id number] Carlota Jin MD 1 [facility], [facility] [address] [place] [phone] 01/12/2025 6:45 EDT Treatment [facility] [place] [address] [place], [place] [id number] Carlota Jin MD 1 [facility], [facility] [address] [place] [phone] 01/15/2025 6:45 EDT Treatment [facility] [place] [address] [place], [place] [id number] Carlota Jin MD 1 [facility], [facility] [address] [place] [phone] 01/17/2025 6:45 EDT Treatment [facility] [address] [place], [place] [id number] Carlota Jin MD 1 [facility], [facility] [address] [place] [phone] 01/19/2025 6:45 EDT Treatment [facility] [address] [place], [place] [id number] Carlota Jin MD 1 [facility], [facility] [address] [place] [phone] 01/22/2025 6:45 EDT Treatment [facility] [place] [address] [place], [place] [id number] Carlota Jin MD 1 [facility], [facility] [address] [place] [phone] 01/24/2025 6:45 EDT Treatment [facility] [place] [address] [place], [place] [id number] Carlota Jin MD 1 [facility], [facility] [address] [place] [phone] 01/26/2025 6:45 EDT Treatment [facility] [place] [address] [place], [place] [id number] Carlota Jin MD 1 [facility], [facility] [address] [place] [phone] 01/29/2025 6:45 EDT Treatment [facility] [place] [address] [place], [place] [id number] Carlota Jin MD 1 [facility], [facility] [address] [place] [phone] 01/31/2025 6:45 EDT Treatment [facility] [place] [address] [place], [place] [id number] Carlota Jin MD 1 [facility], [facility] [address] [place] [phone] 02/02/2025 6:45 EDT Treatment [facility] [place] [address] [place] [id number] Carlota Jin MD 1 [facility], [facility] [address] [place] [phone] 02/05/2025 6:45 EDT Treatment [facility] [place] [address] [place], [place] [id number] Carlota Jin MD 1 [facility], [facility] [address] [place] [phone] 02/07/2025 6:45 EDT Treatment [facility] [place] [address] [place] [address] Carlota Jin MD 1 [facility], [address] [phone] 02/09/2025 6:45 EDT Treatment [facility] [place] [address] [place], [place] [id number] Carlota Jin MD 1 [facility], [address] [phone] 02/12/2025 6:45 EDT Treatment [facility] [place] [address] [place] [address] Carlota Jin MD 1 [facility], [facility] [address] [place] [phone] 02/14/2025 6:45 EDT Treatment [facility] [place] [address] [place], [place] [id number] Carlota Jin MD 1 [facility], [facility] [address] [place] [phone] 02/16/2025 6:45 EDT Treatment [facility] [address] [place], [place] [id number] Carlota Jin MD 1 [facility], [facility] [address] [place] [phone] 02/19/2025 6:45 EDT Treatment [facility] [address] [place], [place] [id number] Carlota Jin MD [address] [place] [address], [facility] [address] [place] [phone] 02/21/2025 6:[address] [facility] [address] [place], [place] [id number] Carlota Jin MD [address] [place] [address], [facility] [address] [place] [phone] documented as of this encounter Visit Diagnoses Not on filedocumented in this encounter Care Teams Absorption Plant Operator Helper Relationship Specialty Start Date End [place] [address] PCP - General 07/07/23 documented as of this encounter
--- OUTSIDE RECORDS SUMMARY | 2024-12-05 12:11 | XMS_ITS | Encounter Summary ---
Author Organization Health system Address [address] [place] [address] Care Team Providers Care Football Scout Name Role Phone Ken Greer MD Primary Care Provider [phone] Encounter Details Date Type Department Care Team (Latest Contact Info) Description 12/29/2023 6:45 EST Treatment [facility] [address] [place], [place] [id number] Carlota Jin MD 1 [facility], Level [address] [place] [address] ESRD (end stage renal disease) ([facility]) (Primary Dx); Anemia of chronic renal failure, unspecified CKD stage; Hypoalbuminemia; Secondary hyperparathyroidism ([facility]); Diabetic foot infection ([facility]) Social History Tobacco Use Types Packs/Day [...] - Temperature - - Respiratory Rate 16 12/29/2023 0619 EST Oxygen Saturation - - Inhaled Oxygen Concentration - - Weight 89.7 kg (197 lb 12 oz) 12/29/2023 0627 ES T Height - - Body Mass Index 28.37 12/20/2023 2202 EST documented in this encounter [...] Flowsheet Note - Marcela Cox RN - 12/29/2023 1305 EST 12/29/23 1055 Post-Hemodialysis Assessment Total Blood Processed (L) 90.33 Liters On Line Clearance: spKt/V 1.62 spKt/V Dialyzer Clearance Lightly streaked Treatment UFR (ml:kg:hr) 9.17 ml:kg:hr Final Critline Profile (%/hr) 0.12 Final Profile Profile A Critline refill Not done Fluid Removed (L) 3.5 L Post-Dialysis Scale Weight 86.5 kg (190 lb 11.2 oz) Wheelchair Weight 0 kg (0 lb) Prosthesis Weight 0 kg (0 lb) Post-Treatment Weight (kg) 86.5 Treatment Weight Change (kg) 3.2 kg Day Target Weight (kg) 86.7 Post Sitting/Lying BP 135/68 Post Sitting/Lying pulse 61 Temp 35.6 ??C (96.1 ??F) Temp src Temporal Post access assessment AVF/AFG Hemostasis achieved Yes Note 10 minute hold with clamps Orientation Alert and Oriented x3 Yes Time Yes Place Yes Person Yes Cooperative Yes Disoriented No Discharge Ambulation Methods Departs via w/c Wrap up items Patient Response to Treatment Tolerated tx well. Removed 3.5L UF goal without difficulty. Comments No issues during tx, no concerns voiced post tx. * Dialysis Rounding - Skye Gomez NP - 12/29/2023 0645 EST Dialysis Provider's Routine Assessment The visit was conducted via telehealth (audio/video) between the [facility] [facility] and the provider from their Home Office. The interaction was assisted by RN. The patient has no complaints and no new issues have been raised by the dialysis staff. Gerson Bruner was seen and examined as appropriate during Dialysis. Pertinent lab results were reviewed. Changes since last visit: None Changes to current prescriptions/orders: None Pt resting comfortably on dialysis Skye Gomez NP The concept of ???Telemedicine?? has been described [...] care. The location of the patient : [place] [facility]; Patient location state: Visit Location State: [place] The location of the provider: Office; Provider location state: Visit Location State: [place] documented in this encounter Plan of Treatment Upcoming Encounters Date Type Department Care Team (Late st Contact Info) Description 12/06/2024 6:45 EST Treatment [facility] [place] [address] [place], [place] [id number] Carlota Jin MD 1 [facility], [facility] [address] [place] [phone] 12/08/2024 6:45 EST Treatment [facility] [place] [address] [place], [place] [phone] Carlota Jin MD 1 [facility], [address] [phone] 12/11/2024 6:45 EST [facility] [address] [place], [place] [phone] Carlota Jin MD 1 [facility], [address] [phone] 12/13/2024 6:45 EST Treatment [facility] [place] [address] [place], [place] [id number] Carlota Jin MD 1 [facility], [facility] 2 [place] [phone] 12/15/2024 6:45 EST Treatment [facility] [place] [address] [place], [place] [id number] Carlota Jin MD 1 [facility], [facility] 2 [place] [phone] 12/18/2024 6:45 EST Treatment [facility] [place] [address] [place], [place] [id number] Carlota Jin MD 1 [facility], [facility] [address] [place] [phone] 12/20/2024 6:45 EST Treatment [facility] [place] [address] [place], [place] [id number] Carlota Jin MD 1 [facility], [facility] 2 [place] [phone] 12/22/2024 6:45 EST Treatment [facility] [place] [address] [place] [address] Carlota Jin MD 1 [facility], [address] [phone] 12/25/2024 6:45 EST Treatment [facility] [place] [address] [place], [place] [phone] Carlota Jin MD 1 [facility], [address] [phone] 12/27/2024 6:45 EST Treatment [facility] [place] [address] [place] [address] Carlota Jin MD 1 [facility], [facility] [address] [place] [phone] 12/29/2024 6:45 EST Treatment [facility] [place] [address] [place], [place] [id number] Carlota Jin MD 1 [facility], [facility] [address] [place] [phone] 01/01/2025 6:45 EDT Treatment [facility] [place] [address] [place], [place] [id number] Carlota Jin MD 1 [facility], [facility] 2 [place] [phone] 01/03/2025 6:45 EDT Treatment [facility] [place] [address] [place], [place] [phone] Carlota Jin MD 1 [facility], [facility] [address] [place] [phone] 01/05/2025 6:45 EDT Treatment [facility] [place] [address] [place] [address] Carlota Jin MD 1 [facility], [address] [phone] 01/08/2025 6:45 EDT Treatment [facility] [place] [address] [place], [place] [phone] Carlota Jin MD 1 [facility], [facility] [address] [place] [phone] 01/10/2025 6:45 EDT Treatment [facility] [place] [address] [place], [place] [id number] Carlota Jin MD 1 [facility], [facility] 2 [place] [phone] 01/12/2025 6:45 EDT Treatment [facility] [place] [address] [place], [place] [address] Carlota Jin MD 1 [facility], [facility] 2 [place] [phone] 01/15/2025 6:45 EDT Treatment [facility] [place] [address] [place] [address] Carlota Jin MD 1 [facility], [address] [phone] 01/17/2025 6:45 EDT Treatment [facility] [place] [address] [place], [place] [phone] Carlota Jin MD 1 [facility], [address] [phone] 01/19/2025 6:45 EDT Treatment [facility] [place] [address] [place] [address] Carlota iJn MD 1 [facility], [address] [phone] 01/22/2025 6:45 EDT Treatment [facility] [place] [address] [place], [place] [phone] Carlota Jin MD [address] [phone] 01/24/2025 6:45 EDT Treatment [facility] [place] [address] [place], [place] [phone] Carlota Jin MD 1 [facility], [facility] 2 [place] [phone] 01/26/2025 6:45 EDT Treatment [facility] [place] [address] [place], [place] [phone] Carlota Jin MD 1 [facility], [facility] 2 [place] [phone] 01/29/2025 6:45 EDT Treatment [facility] [place] [address] [place], [place] [phone] Carlota Jin MD 1 [facility], [facility] [address] [place] [phone] 01/31/2025 6:45 EDT Treatment [facility] [place] [address] [place], [place] [phone] Carlota Jin MD 1 [facility], [facility] 2 [place] [phone] 02/02/2025 6:45 EDT Treatment [facility] [place] [address] [place], [place] [phone] Carlota Jin MD 1 [facility], [facility] [address] [place] [phone] 02/05/2025 6:45 EDT Treatment [facility] [address] [place], [place] [phone] Carlota Jin MD 1 [facility], [facility] 2 [place] [phone] 02/07/2025 6:45 EDT Treatment [facility] [place] [address] [place], [place] [address] Carlota Jin MD 1 [facility], [facility] [address] [place] [phone] 02/09/2025 6:45 EDT Treatment [facility] [place] [address] [place], [place] [phone] Carlota Jin MD 1 [facility], [facility] [address] [place] [phone] 02/12/2025 6:45 EDT Treatment [facility] [place] [address] [place], [place] [phone] Carlota Jin MD 1 [facility], [address] [phone] 02/14/2025 6:45 EDT Treatment [facility] [place] [address] [place], [place] [phone] Carlota Jin MD 1 [facility], [facility] [address] [place] [phone] 02/16/2025 6:45 EDT Treatment [facility] [place] [address] [place], [place] [phone] Carlota Jin MD 1 [facility], [facility] [address] [place] [phone] 02/19/2025 6:45 EDT Treatment [facility] [place] [address] [place], [place] [phone] Carlota Jin MD 1 [facility], Level [address] [place] [phone] 02/21/2025 6:45 EDT Treatment [facility] [place] [address] [place] [address] Carlota Jin MD 1 [facility], [address] [place] [phone] documented as of this encounter Procedures Procedure Name Priority Date/Time Associated Diagnosis Comments COMPLETE BLOOD COUNT Routine 12/29/2023 6:33 EST ESRD (end stage renal disease) ([facility]) HEMODIALYSIS Routine 12/29/2023 6:19 EST ESRD (end stage renal disease) ([facility]) documented in this encounter Results * (ABNORMAL) COMPLETE BLOOD COUNT (12/29/2023 6:33 EST) WBC 12.37(H) 4.00 - 10.40 K/cmm 12/29/2023 22:15 [facility] RBC 2.54(L) 4.36 - 5.78 M/cmm 12/29/2023 22:15 [facility] Hemoglobin 7.4(L) 13.8 - 17.3 g/dL 12/29/2023 22:15 [facility] HCT 23.4(L) 39.5 - 50.2 % 12/29/2023 22:15 [facility] MCV 92 81 - 95 fL 12/29/2023 22:15 [facility] MCH 29.1 27.6 - 33.0 pg 12/29/2023 22:15 [facility] MCHC 31.6(L) 32.8 - 36.4 g/dL 12/29/2023 22:15 [facility] RDW-CV 13.1 <14.2 % 12/29/2023 22:15 [facility] RDW-SD 43.7 <46.0 fl 12/29/2023 22:[address] [facility] PLT 489(H) 141 - 377 K/cmm 12/29/2023 22:[address] [facility] MPV 11.9 9.5 - 12.7 fL 12/29/2023 22:[address] [facility] Blood VENOUS BLOOD / Unknown Venipuncture / Unknown 12/29/2023 6:33 EST 12/29/2023 6:33 EST us Skye Gomez NP HEMATOLOGY & PF4 ORDERABLES Final Result [facility] [address] [place] [address] documented in this encounter Visit Diagnoses Diagnosis ESRD (end stage renal disease) ([facility])- Primary End stage renal disease Anemia of chronic renal failure, unspecified CKD stage Hypoalbuminemia Other disorders of plasma protein metabolism Secondary hyperparathyroidism ([facility]) Secondary hyperparathyroidism (of renal origin) Diabetic foot infection ([facility]) Type II or unspecified type diabetes mellitus with other specified manifestations, not stated as uncontrolled documented in this encounter Administered Medications Inactive Administered Medications - up to 3 most recent administrations Medication Order MAR Action Action Date Dose Rate Site calcium carbonate (TUMS) tablet 500 mg (200 mg elemental calcium) 2 Tablet 2 Tablet, oral, ONCE IN DIALYSIS, 1 dose, On Wed12/29/23 at 0645, Routine, DialysisIndications:ESRD (end stage renal disease) ([facility]),Secondary hyperparathyroidism ([facility]) Given 12/29/2023 6:34 EST 2 Tablets epoetin ken (EPOGEN) 20,000 unit/2 mL injection 1,500 Units 1,500 Units, intravenous, ONCE IN DIALYSIS, 1 dose, On Wed12/29/23 at 0645, Routine, DialysisIndications:ESRD (end stage renal disease) ([facility]),Anemia of chronic renal failure, unspecified CKD stage Given 12/29/2023 6:49 EST 1,500 Units ertapenem (INVANZ) 1,000 mg in sodium chloride (PF) 10 mL Syringe 1,000 mg, intravenous, Administer over 5 Minutes, ONCE IN DIALYSIS, 1 dose, On Wed12/29/23 at 0645, Type of Therapy: Definitive, Based on Cultures, Suspected Indication (Select all that apply): Polymicrobial DM foot infection, RoutineIndications:Diabetic foot infection ([facility]) Given 12/29/2023 10:50 EST 1,000 mg heparin injection 9,000 Units 9,000 Units, intravenous, ONCE IN DIALYSIS, 1 dose, On Wed12/29/23 at 0645, Routine, Dialysis, Now x1 bolus 4500 units to be given at the beginning of dialysis 1500 units/hour to be given over the course of dialysis (9000 units total). Stop 1 hour prior to end of treatment. To be administered per Policy [id number].Indications:ESRD (end stage renal disease) ([facility]) Given 12/29/2023 6:34 EST 9,000 Units LiquaCel liquid protein liquid 30 mL 30 mL, oral, ONCE IN DIALYSIS, 1 dose, On Wed12/29/23 at 0645, RoutineIndications:ESRD (end stage renal disease) ([facility]),Hypoalbuminemia Given 12/29/2023 6:34 EST 30 mL vancomycin 850 mg central line syringe 50 mg/mL 850 mg, central line, Administer over 60 Minutes, ONCE IN DIALYSIS, 1 dose, On Wed12/29/23 at 0645, Routine, Suspected Indication (Select all that apply): Moderate or Severe DM foot infectionIndications:Diabetic foot infection ([facility]) Given 12/29/2023 10:09 EST 850 mg documented in this encounter Orders Dialysis Count Last Ordered Date First Orde red Date HEMODIALYSIS 1 12/29/2023 documented in this encounter Care Teams Football Scout Relationship Specialty Start Date End Date Ken Greer MD [address] [place] [address] PCP - General 07/07/23 documented as of this encounter
--- OUTSIDE RECORDS SUMMARY | 2024-12-05 12:11 | XMS_ITS | Encounter Summary ---
Author Organization [facility] Address [address] [place] [address] Care Team Providers Care Director Of Child Welfare Services Name Role Phone Ken Greer MD Primary Care Provider [phone] Encounter Details Date Type Department Care Team (Latest Contact Info) Description 12/27/2023 6:45 EST Treatment [facility] [address] [place], [place] [phone] Carlota Jin MD 1 [facility], Level 2 [place] [phone] ESRD (end stage renal disease) ([facility]) (Primary Dx); Anemia of chronic renal failure, unspecified CKD stage; Hypoalbuminemia; Secondary hyperparathyroidism ([facility]); Diabetic foot infection ([facility]) Social History Tobacco Use Types [...] - Temperature - - Respiratory Rate 18 12/27/2023 0642 EST Oxygen Saturation - - Inhaled Oxygen Concentration - - Weight 91.6 kg (201 lb 15.1 oz) 12/27/2023 0631 EST Height - - Body Mass Index 28.98 12/20/2023 2202 EST documented in this encounter [...] Flowsheet Note - Melissa Crespo RN - 12/27/2023 1850 EST 12/27/23 1055 Post-Hemodialysis Assessment Total Blood Processed (L) 90.1 Liters On Line Clearance: spKt/V 1.59 spKt/V Dialyzer Clearance Lightly streaked Treatment UFR (ml:kg:hr) 10.44 ml:kg:hr Critline refill Not done Fluid Removed (L) 4 L Post-Dialysis Scale Weight 108.7 kg (239 lb 10.2 oz) Wheelchair Weight 20.8 kg (45 lb 13.7 oz) Prosthesis Weight 0 kg (0 lb) Post-Treatment Weight (kg) 87.9 Treatment Weight Change (kg) 3.7 kg Day Target Weight (kg) 88.1 Post Sitting/Lying BP 124/64 Post Sitting/Lying pulse 67 Temp 36.3 ??C [...] [facility] [address] [place], [place] [phone] Carlota Jin MD [address] [place] [phone] 12/08/2024 6:45 EST Treatment [facility] [address] [place], [place] [phone] Carlota Jin MD [address] [place] [phone] 12/11/2024 6:45 EST Treatment [facility] [address] [place] [phone] Carlota Jin MD [address] [place] [phone] 12/13/2024 6:45 EST Treatment [facility] [address] [place] [id number] Carlota Jin MD 1 [facility], [facility] 2 [place] [phone] 12/15/2024 6:45 EST Treatment [facility] [place] [address] [place], [place] [phone] Carlota Jin MD 1 [facility], [facility] 2 [place] [phone] 12/18/2024 6:45 EST Treatment [facility] - [place] [address] [place], [place] [phone] Carlota Jin MD 1 [facility], [facility] 2 [place] [phone] 12/20/2024 6:45 EST Treatment [facility] [place] [address] [place], [place] [phone] Carlota Jin MD 1 [facility], [facility] 2 [place] [phone] 12/22/2024 6:45 EST Treatment [facility] - [place] [address] [place], [place] [phone] Carlota Jin MD 1 [facility], [facility] 2 [place] [phone] 12/25/2024 6:45 EST Treatment [facility] - [place] [address] [place], [place] [phone] Carlota Jin MD 1 [facility], [facility] 2 [place] [phone] 12/27/2024 6:45 EST Treatment [facility] [place] [address] [place], [place] [phone] Carlota Jin MD 1 [facility], [facility] 2 [place] [phone] 12/29/2024 6:45 EST Treatment [facility] [place] [address] [place], [place] [phone] Carlota Jin MD 1 [facility], [facility] 2 [place] [phone] 01/01/2025 6:45 EDT Treatment [facility] [place] [address] [place] [address] Carlota Jin MD 1 [facility], [address] [phone] 01/03/2025 6:45 EDT Treatment [facility] - [place] [address] [place], [place] [phone] Carlota Jin MD 1 [facility], [facility] 2 [place] [phone] 01/05/2025 6:45 EDT Treatment [facility] [place] [address] [place], [place] [phone] Carlota Jin MD 1 [facility], [facility] 2 [place] [phone] 01/08/2025 6:45 EDT Treatment [facility] [place] [address] [place] [address] Carlota Jin MD 1 [facility], [facility] 2 [place] [phone] 01/10/2025 6:45 EDT Treatment [facility] [place] [address] [place] [address] Carlota Jin MD 1 [facility], [facility] 2 [place] [phone] 01/12/2025 6:45 EDT Treatment [facility] [place] [address] [place] [address] Carlota Jin MD 1 [facility], [address] [phone] 01/15/2025 6:45 EDT Treatment [facility] [place] [address] [place] [address] Carlota Jin MD 1 [facility], [address] [phone] 01/17/2025 6:45 EDT Treatment [facility] [place] [address] [place] [address] Carlota Jin MD 1 [facility], [facility] 2 [place] [phone] 01/19/2025 6:45 EDT Treatment [facility] [place] [address] [place], [place] [phone] Carlota Jin MD 1 [facility], [facility] 2 [place] [phone] 01/22/2025 6:45 EDT Treatment [facility] [place] [address] [place], [place] [phone] Carlota Jin MD 1 [facility], [facility] 2 [place] [phone] 01/24/2025 6:45 EDT Treatment [facility] [place] [address] [place], [place] [phone] Carlota Jin MD 1 [facility], [facility] 2 [place] [phone] 01/26/2025 6:45 EDT Treatment [facility] [place] [address] [place], [place] [address] Carlota Jin MD 1 [facility], [facility] 2 [place] [phone] 01/29/2025 6:45 EDT Treatment [facility] [place] [address] [place], [place] [id number] Carlota Jin MD 1 [facility], [facility] 2 [place] [phone] 01/31/2025 6:45 EDT Treatment [facility] [place] [address] [place], [place] [phone] Carlota Jin MD 1 [facility], [facility] 2 [place] [phone] 02/02/2025 6:45 EDT Treatment [facility] [place] [address] [place], [place] [id number] Carlota Jin MD 1 [facility], [address] [phone] 02/05/2025 6:45 EDT Treatment [facility] [place] [address] [place], [place] [phone] Carlota Jin MD 1 [facility], [address] [phone] 02/07/2025 6:45 EDT Treatment [facility] [place] [address] [place], [place] [phone] Carlota Jin MD 1 [facility], [address] [phone] 02/09/2025 6:45 EDT Treatment [facility] [place] [address] [place], [place] [phone] Carlota Jin MD [address] [phone] 02/12/2025 6:45 EDT Treatment [facility] [place] [address] [place], [place] [phone] Carlota Jin MD [address] [phone] 02/14/2025 6:45 EDT Treatment [facility] [place] [address] [place], [place] [phone] Carlota Jin MD 1 [facility], [address] [phone] 02/16/2025 6:45 EDT Treatment [facility] [place] [address] [place], [place] [phone] Carlota Jin MD 1 [facility], [facility] 2 [place] [phone] 02/19/2025 6:45 EDT Treatment [facility] [place] [address] [place], [place] [phone] Carlota Jin MD 1 [facility], [facility] 2 [place] [phone] 02/21/2025 6:45 EDT Treatment [facility] [place] [address] [place], [place] [phone] Carlota Jin MD 1 [facility], [address] [phone] documented as of this encounter Procedures Procedure Name Priority Date/Time Associated Diagnosis Comments POSTDIALYSIS BUN WITH URR CALCULATION Routine 12/27/2023 16:52 EST ESRD (end stage renal disease) ([facility]) TRANSFERRIN SATURATION Routine 12/27/2023 6:46 EST ESRD (end stage renal disease) ([facility]) DIALYSIS ROUTINE - DIALYSIS ONLY (BUN, K, NA, CL, CO2, SANJEEV, ALB, MG, PHOS, ALKP, AST) Routine 12/27/2023 6:46 EST ESRD (end stage renal disease) ([facility]) PROFILE IRON STUDIES (INCLUDES IRON, IBC, AND FERRITIN) Routine 12/27/2023 6:46 EST ESRD (end stage renal disease) ([facility]) COMPLETE BLOOD COUNT Routine 12/27/2023 6:46 EST ESRD (end stage renal disease) ([facility]) FERRITIN Routine 12/27/2023 6:46 EST ESRD (end stage renal disease) ([facility]) HEMODIALYSIS Routine 12/27/2023 6:43 EST ESRD (end stage renal disease) ([facility]) documented in this encounter Results * (ABNORMAL) POSTDIALYSIS BUN WITH URR CALCULATION (12/27/2023 16:52 EST) BUN, Postdialysis 17 10 - 26 mg/dL 12/27/2023 21:32 EST [facility] Urea Reduction Rate 71.7 Not Established % 12/27/2023 21:32 [facility] Comment: NOTE: Reference range not established for Urea Reduction Rate. BUN 60(H) 10 - 26 mg/dL 12/27/2023 21:32 EST [facility] Blood VENOUS BLOOD / Unknown Venipuncture / Unknown 12/27/2023 16:52 EST 12/27/2023 16:52 EST Skye Gomez ECHOCARDIOGRAPH TECHNICIAN CHEMISTRY & BLOOD GAS ORDER FRANSISCO Final Result Performing Organization Address [facility] Co de Phone Number [facility] [address] [place] [phone] * (ABNORMAL) FERRITIN (12/27/2023 6:46 EST) Ferritin 992(H) 22 - 322 ng/mL 12/27/2023 22:24 EST [facility] Blood VENOUS BLOOD / Unknown Venipuncture / Unknown 12/27/2023 6:46 EST 12/27/2023 6:46 EST Skye Gomez NP CHEMISTRY & BLOOD GAS ORDER FRANSISCO Final Result Performing Organization Address [facility]/ZIP Co de Phone Number [facility] [address] [place] [address] * (ABNORMAL) TRANSFERRIN SATURATION (12/27/2023 6:46 EST) Pathologist [facility] Iron 43(L) 49 - 181 ??g/dL 12/27/2023 21:42 [facility] Iron Binding Capacity 154(L) 240 - 450 ??g/dL 12/27/2023 21:42 [facility] Transferrin Saturation 28 15 - 45 % 12/27/2023 21:42 [facility] Blood VENOUS BLOOD / Unknown Venipuncture / Unknown 12/27/2023 6:46 EST 12/27/2023 6:46 EST Skye Gomez NP CHEMISTRY & BLOOD GAS ORDER FRANSISCO Final Result [facility] [address] [place] [address] * (ABNORMAL) DIALYSIS ROUTINE - DIALYSIS ONLY (BUN, K, NA, CL, CO2, SANJEEV, ALB, MG, PHOS, ALKP, AST) (12/27/2023 6:46 EST) Pathologist [facility] Sodium 131(L) 136 - 145 mmol/L 12/27/2023 21:29 [facility] Potassium 6.3(H) 3.5 - 5.0 mmol/L 12/27/2023 21:29 [facility] Chloride 93(L) 96 - 110 mmol/L 12/27/2023 21:29 [facility] CO2 Total 27 22 - 32 mmol/L 12/27/2023 21:29 [facility] Calcium 8.4(L) 8.5 - 10.5 mg/dL 12/27/2023 21:29 [facility] Albumin 2.6(L) 3.4 - 4.9 g/dL 12/27/2023 21:29 [facility] Phosphorus 5.1(H) 2.5 - 4.5 mg/dL 12/27/2023 21:29 [facility] Calcium Phos Product 42.8 See Note mg/dL 12/27/2023 21:29 [facility] Comment: NOTE: Reference range not established BUN, Predialysis 60(H) 10 - 26 mg/dL 12/27/2023 21:29 [facility] AST 16 15 - 46 U/L 12/27/2023 21:29 [facility] Alkaline Phosphatase 103 38 - 126 U/L 12/27/2023 21:29 [facility] Magnesium 2.1 1.7 - 2.8 mg/dL 12/27/2023 21:29 [facility] Anion Gap 11 5 - 14 mmol/L 12/27/2023 21:29 [facility] Calculated Calcium 9.5 8.9 - 10.5 mg/dL 12/27/2023 21:29 [facility] Blood VENOUS BLOOD / Unknown Venipuncture / Unknown 12/27/2023 6:46 EST 12/27/2023 6:46 EST Skye Gomez NP CHEMISTRY & BLOOD GAS ORDER FRANSISCO Final Result Performing Organization Address City/State/[facility] Co de Phone Number [facility] [address] [place] [address] * (ABNORMAL) COMPLETE BLOOD COUNT (12/27/2023 6:46 EST) WBC 13.98(H) 4.00 - 10.40 K/cmm 12/27/2023 21:21 [facility] RBC 2.50(L) 4.36 - 5.78 M/cmm 12/27/2023 21:21 [facility] Hemoglobin 7.4(L) 13.8 - 17.3 g/dL 12/27/2023 21:21 [facility] HCT 23.1(L) 39.5 - 50.2 % 12/27/2023 21:21 [facility] MCV 92 81 - 95 fL 12/27/2023 21:21 [facility] MCH 29.6 27.6 - 33.0 pg 12/27/2023 21:21 [facility] MCHC 32.0(L) 32.8 - 36.4 g/dL 12/27/2023 21:21 [facility] RDW-CV 12.9 <14.2 % 12/27/2023 21:21 [facility] RDW-SD 43.7 <46.0 fl 12/27/2023 21:21 [facility] PLT 439(H) 141 - 377 K/cmm 12/27/2023 21:21 [facility] MPV 12.0 9.5 - 12.7 fL 12/27/2023 21:21 [facility] Blood VENOUS BLOOD / Unknown Venipuncture / Unknown 12/27/2023 6:46 EST 12/27/2023 6:46 EST Skye Gomez ECHOCARDIOGRAPH TECHNICIAN HEMATOLOGY & PF4 ORDERABLES Final Result [facility] [address] [place] [address] documented in this encounter Visit Diagnoses Diagnosis ESRD (end stage renal disease) ([facility])- Primary End stage renal disease Anemia of chronic renal failure, unspecified CKD stage Hypoalbuminemia Other disorders of plasma protein metabolism Secondary hyperparathyroidism ([facility]) Secondary hyperparathyroidism (of renal origin) Diabetic foot infection ([facility]) Type II or unspecified type diabetes mellitus with other specified manifestations, not stated as uncontrolled documented in this encounter Administered Medications Inactive Administered Medications - up to 3 most recent administrations Medication Order MAR Action Action Date Dose Rate Site calcium carbonate (TUMS) tablet 500 mg (200 mg elemental calcium) 2 Tablet 2 Tablet, oral, ONCE IN DIALYSIS, 1 dose, On Wed12/27/23 at 0700, Routine, DialysisIndications:ESRD (end stage renal disease) (HCC-CMS),Secondary hyperparathyroidism (HCC-CMS) Given 12/27/2023 8:14 EST 2 Tablets epoetin ken (EPOGEN) 20,000 unit/2 mL injection 1,500 Units 1,500 Units, intravenous, ONCE IN DIALYSIS, 1 dose, On Wed12/27/23 at 0700, Routine, DialysisIndications:ESRD (end stage renal disease) ([facility]),Anemia of chronic renal failure, unspecified CKD stage Given 12/27/2023 8:13 EST 1,500 Units ertapenem (INVANZ) 1,000 mg in sodium chloride (PF) 10 mL Syringe 1,000 mg, intravenous, Administer over 5 Minutes, ONCE IN DIALYSIS, 1 dose, On Wed12/27/23 at 0700, Type of Therapy: Definitive, Based on Cultures, Suspected Indication (Select all that apply): Polymicrobial DM foot infection, Controlled Antibiotic Has ID Approved? Yes, ID Provider Consulted: Daniel Shelby MD, RoutineIndications:Diabetic foot infection ([facility]) Given 12/27/2023 11:06 EST 1,000 mg heparin injection 9,000 Units 9,000 Units, intravenous, ONCE IN DIALYSIS, 1 dose, On Wed12/27/23 at 0700, Routine, Dialysis, Now x1 bolus 4500 units to be given at the beginning of dialysis 1500 units/hour to be given over the course of dialysis (9000 units total). Stop 1 hour prior to end of treatment. To be administered per Policy [id number].Indications:ESRD (end stage renal disease) ([facility]) Given 12/27/2023 6:58 EST 9,000 Units LiquaCel liquid protein liquid 30 mL 30 mL, oral, ONCE IN DIALYSIS, 1 dose, On Wed12/27/23 at 0700, RoutineIndications:ESRD (end stage renal disease) ([facility]),Hypoalbuminemia Given 12/27/2023 8:14 EST 30 mL vancomycin 850 mg central line syringe 50 mg/mL 850 mg, central line, Administer over 60 Minutes, ONCE IN DIALYSIS, 1 dose, On Wed12/27/23 at 0700, Routine, Suspected Indication (Select all that apply): Moderate or Severe DM foot infectionIndications:Diabetic foot infection ([facility]) Given 12/27/2023 9:57 EST 850 mg documented in this encounter Orders Dialysis Count Last Ordered Date First Orde red Date HEMODIALYSIS 1 12/27/2023 documented in this encounter Care Teams Director Of Child Welfare Services Relationship Specialty Start Date End Date Kne Greer MD [address] [place] [address] PCP - General 07/07/23 documented as of this encounter
--- OUTSIDE RECORDS SUMMARY | 2024-12-05 12:11 | XMS_ITS | Encounter Summary ---
Author Organization [facility] Address [address] [place] [address] Care Team Providers Care Procedural Nurse Name Role Phone Ken Greer MD Primary Care Provider [phone] Encounter Details Date Type Department Care Team (Latest Contact Info) Description 12/31/2023 6:45 EST Treatment [facility] [address] [place], [place] [id number] Carlota Jin MD 1 [facility], Level 2 [place] [address] ESRD (end stage renal disease) ([facility]) (Primary Dx); Anemia of chronic renal failure, unspecified CKD stage; Hypoalbuminemia; Secondary hyperparathyroidism ([facility]); Diabetic foot infection ([facility]); ESRD on hemodialysis ([facility]) Social History Tobacco Use Types [...] - Temperature - - Respiratory Rate 16 12/31/2023 0625 EST Oxygen Saturation - - Inhaled Oxygen Concentration - - Weight 89.4 kg (197 lb 1.5 oz) 12/31/[address] Height - - Body Mass Index 28.28 [...] Flowsheet Note - Marcela Cox RN - 12/31/2023 1400 EST 12/31/23 1057 Post-Hemodialysis Assessment Total Blood Processed (L) 90.06 Liters On Line Clearance: spKt/V 1.6 spKt/V Dialyzer Clearance Lightly streaked Treatment UFR (ml:kg:hr) 9.13 ml:kg:hr Final Critline Profile (%/hr) 0.12 Final Profile Profile A Fluid Removed (L) 3.5 L Post-Dialysis Scale Weight 108 kg (238 lb 1.6 oz) Wheelchair Weight 20.9 kg (46 lb 1.2 oz) Prosthesis Weight 0.9 kg (1 lb 15.8 oz) Post-Treatment Weight (kg) 86.2 Treatment Weight Change (kg) 3.2 kg Day Target Weight (kg) 86.4 Post Sitting/Lying BP 154/80 Post Sitting/Lying pulse 62 Temp 35.4 ??C (95.7 ??F) Temp src Temporal Post access assessment [...] 6:45 EST Treatment [facility] D[facility] [address] [place], [place] [id number] Carlota Jin MD [address] [place] [address], [facility] [place] [address] 12/08/2024 6:45 EST Treatment [facility] [address] [place], [place] [address] Carlota Jin MD [address] [place] [address], [facility] [place] [phone] 12/11/2024 6:45 EST Treatment [facility] D[facility] [address] [place], [place] [id number] Carlota Jin MD [address] [place] [address], [facility] [place] [phone] 12/13/2024 6:45 EST Treatment [facility] [address] [place], [place] [address] Carlota Jin MD 1 [facility], [facility] [place] [phone] 12/15/2024 6:45 EST Treatment [facility] - [place] [address] [place] [address] Carlota Jin MD 1 [facility], [facility] [place] [phone] 12/18/2024 6:45 EST Treatment [facility] [address] [place], [place] [id number] Carlota Jin MD 1 [facility], [address] [phone] 12/20/2024 6:45 EST Treatment [facility] - [place] [address] [place], [place] [address] Carlota Jin MD 1 [facility], [address] [phone] 12/22/2024 6:45 EST Treatment [facility] [place] [address] [place], [place] [address] Carlota Jin MD 1 [facility], [address] [phone] 12/25/2024 6:45 EST Treatment [facility] [address] [place], [place] [id number] Carlota Jin MD 1 [facility], [facility] [place] [phone] 12/27/2024 6:45 EST Treatment [facility] [address] [place], [place] [address] Carlota Jin MD 1 [facility], [facility] [place] [phone] 12/29/2024 6:45 EST Treatment [facility] [address] [place], [place] [id number] Carlota Jin MD 1 [facility], [facility] [place] [phone] 01/01/2025 6:45 EDT Treatment [facility] [address] [place] [address] Carlota Jin MD 1 [facility], [facility] [place] [phone] 01/03/2025 6:45 EDT Treatment [facility] [address] [place], [place] [id number] Carlota Jin MD 1 [facility], [facility] [place] [phone] 01/05/2025 6:45 EDT Treatment [facility] [address] [place], [place] [address] Carlota Jin MD 1 [facility], [facility] [place] [phone] 01/08/2025 6:45 EDT Treatment [facility] - [place] [address] [place], [place] [address] Carlota Jin MD 1 [facility], [facility] [place] [phone] 01/10/2025 6:45 EDT Treatment [facility] - [place] [address] [place], [place] [address] Carlota Jin MD 1 [facility], [facility] [place] [phone] 01/12/2025 6:45 EDT Treatment [facility] - [place] [address] [place], [place] [address] Carlota Jin MD 1 [facility], [address] [phone] 01/15/2025 6:45 EDT Treatment [facility] [address] [place], [place] [address] Carlota Jin MD [address] [phone] 01/17/2025 6:45 EDT Treatment [facility] [address] [place], [place] [address] Carlota Jin MD [address] [phone] 01/19/2025 6:45 EDT Treatment [facility] [address] [place], [place] [address] Carlota Jin MD 1 [facility], [address] [place] [phone] 01/22/2025 6:45 EDT Treatment [facility] [address] [place], [place] [address] Carl[facility] Jin MD 1 [facility], [facility] [place] [phone] 01/24/2025 6:45 EDT Treatment [facility] - [place] [address] [place], [place] [id number] Carlota Jin MD 1 [facility], [facility] [place] [phone] 01/26/2025 6:45 EDT Treatment [facility] [address] [place], [place] [id number] Carlota Jin MD 1 [facility], [facility] [place] [phone] 01/29/2025 6:45 EDT Treatment [facility] [address] [place] [address] Carlota Jin MD 1 [facility], [facility] [place] [phone] 01/31/2025 6:45 EDT Treatment [facility] [address] [place], [place] [id number] Carlota Jin MD 1 [facility], [facility] [place] [phone] 02/02/2025 6:45 EDT Treatment [facility] - [place] [address] [place], [place] [address] Carlota Jin MD 1 [facility], [facility] [place] [phone] 02/05/2025 6:45 EDT Treatment [facility] [address] [place], [place] [address] Carlota Jin MD 1 [facility], [facility] [place] [phone] 02/07/2025 6:45 EDT Treatment [facility] - [place] [address] [place], [place] [id number] Carlota Jin MD 1 [facility], [address] [phone] 02/09/2025 6:45 EDT Treatment [facility] [address] [place], [place] [address] Carlota Jin MD 1 [facility], [facility] [place] [phone] 02/12/2025 6:45 EDT Treatment [facility] - [place] [address] [place], [place] [address] Carlota Jin MD 1 [facility], [facility] [place] [phone] 02/14/2025 6:45 EDT Treatment [facility] - [place] [address] [place], [place] [address] Carlota Jin MD 1 [facility], [facility] [place] [phone] 02/16/2025 6:45 EDT Treatment [facility] [address] [place] [address] Carlota Jin MD 1 [facility], [facility] [place] [phone] 02/19/2025 6:45 EDT Treatment [facility] - [place] [address] [place], [place] [address] Carlota Jin MD 1 [facility], [facility] [place] [phone] 02/21/2025 6:45 EDT Treatment [facility] [address] [place] [id number] Carlota Jin MD 1 [facility], [address] [phone] documented as of this encounter Procedures Procedure Name Priority Date/Time Associated Diagnosis Comments POSTDIALYSIS BUN WITH URR CALCULATION Routine 12/31/2023 10:57 EST BUN, PREDIALYSIS Routine 12/31/2023 6:31 EST VANCOMYCIN TROUGH Timed 12/31/2023 6:3 1 EST ESRD (end stage renal disease) ([facility]) Diabetic foot infection ([facility]) ESRD on hemodialysis ([facility]) HEMODIALYSIS Routine 12/31/2023 6:25 EST ESRD (end stage renal disease) ([facility]) documented in this encounter Results * (ABNORMAL) POSTDIALYSIS BUN WITH URR CALCULATION (12/31/2023 10:57 EST) BUN, Postdialysis 15 10 - 26 mg/dL 12/31/2023 21:59 [facility] Urea Reduction Rate 70.6 Not Established % 12/31/2023 21:59 [facility] Comment: NOTE: Reference range not established for Urea Reduction Rate. BUN 51(H) 10 - 26 mg/dL 12/31/2023 21:59 [facility] Blood VENOUS BLOOD / Unknown Venipuncture / Unknown 12/31/2023 10:57 EST 12/31/2023 10:57 EST Carlota Jin MD CHEMISTRY & BLOOD GAS ORD ERABLES Final Result Performing Organization Address City/[facility]/ZIP Co de Phone Number [facility] [address] [place] [address] * (ABNORMAL) BUN, PREDIALYSIS (12/31/2023 6:31 EST) [facility] BUN, Predialysis 51(H) 10 - 26 mg/dL 12/31/2023 21:42 EST [facility] Blood VENOUS BLOOD / Unknown Venipuncture / Unknown 12/31/2023 6:31 EST 12/31/2023 6:31 EST Carlota Jin MD CHEMISTRY & BLOOD GAS ORD ERABLES Final Result [facility] [address] [place] [address] * VANCOMYCIN TROUGH (12/31/2023 6:31 EST) [facility] Vancomycin Trough 12.6 10.0 - 20.0 ??g/mL 12/31/2023 21:47 [facility] Draw Type Peripheral Draw 12/31/2023 21:47 [facility] Blood VENOUS BLOOD / Unknown Venipuncture / Unknown 12/31/2023 6:31 EST 12/31/2023 6:31 EST us Carlota Jin MD CHEMISTR[facility] & [facility] Final Result [facility] [address] [place], [place] [phone] documented in this encounter Visit Diagnoses Diagnosis ESRD (end stage renal disease) ([facility])- Primary End stage renal disease Anemia of chronic renal failure, unspecified CKD stage Hypoalbuminemia Other disorders of plasma protein metabolism Secondary hyperparathyroidism ([facility]) Secondary hyperparathyroidism (of renal origin) Diabetic foot infection ([facility]) Type II or unspecified type diabetes mellitus with other specified manifestations, not stated as uncontrolled ESRD on hemodialysis ([facility]) End stage renal disease documented in this encounter Administered Medications Inactive Administered Medications - up to 3 most recent administrations Medication Order MAR Action Action Date Dose Rate Site calcium carbonate (TUMS) tablet 500 mg (200 mg elemental calcium) 2 Tablet 2 Tablet, oral, ONCE IN DIALYSIS, 1 dose, On Wed12/31/23 at 0645, Routine, DialysisIndications:ESRD (end stage renal disease) ([facility]),Secondary hyperparathyroidism ([facility]) Given 12/31/2023 6:45 EST 2 Tablets epoetin ken (EPOGEN) 20,000 unit/2 mL injection 1,500 Units 1,500 Units, intravenous, ONCE IN DIALYSIS, 1 dose, On Wed12/31/23 at 0645, Routine, DialysisIndications:ESRD (end stage renal disease) ([facility]),Anemia of chronic renal failure, unspecified CKD stage Given 12/31/2023 6:45 EST 1,500 Units ertapenem (INVANZ) 1,000 mg in sodium chloride (PF) 10 mL Syringe 1,000 mg, intravenous, Administer over 5 Minutes, ONCE IN DIALYSIS, 1 dose, On Wed12/31/23 at 0645, Type of Therapy: Definitive, Based on Cultures, Suspected Indication (Select all that apply): Polymicrobial DM foot infection, RoutineIndications:Diabetic foot infection ([facility]) Given 12/31/2023 6:45 EST 1,000 mg heparin injection 9,000 Units 9,000 Units, intravenous, ONCE IN DIALYSIS, 1 dose, On Wed12/31/23 at 0645, Routine, Dialysis, Now x1 bolus 4500 units to be given at the beginning of dialysis 1500 units/hour to be given over the course of dialysis (9000 units total). Stop 1 hour prior to end of treatment. To be administered per Policy [id number].Indications:ESRD (end stage renal disease) ([facility]) Given 12/31/2023 6:45 EST 9,000 Units LiquaCel liquid protein liquid 30 mL 30 mL, oral, ONCE IN DIALYSIS, 1 dose, On Wed12/31/23 at [facility], RoutineIndications:ESRD (end stage renal disease) ([facility]),Hypoalbuminemia Given 12/31/2023 6:45 EST 30 mL vancomycin 850 mg central line syringe 50 mg/mL 850 mg, central line, Administer over 60 Minutes, ONCE IN DIALYSIS, 1 dose, On Wed12/31/23 at [facility], Routine, Suspected Indication (Select all that apply): Moderate or Severe DM foot infectionIndications:Diabetic foot infection ([facility]) Given 12/31/2023 6:45 EST 850 mg documented in this encounter Orders Dialysis Count Last Ordered Date First Orde red Date HEMODIALYSIS 1 12/31/2023 documented in this encounter Care Teams Procedural Nurse Relationship Specialty Start Date End Date Ken Greer MD [address] [place] [address] PCP - General 07/07/23 documented as of this encounter
--- OUTSIDE RECORDS SUMMARY | 2024-12-05 12:11 | XMS_ITS | Encounter Summary ---
Author Organization [facility] Address [address] [place] [address] Care Team Providers Care Pump Tender Name Role Phone Ken Greer MD Primary Care Provider [phone] Kiel Powers Unavailable Unavailable Encounter Details Date Type Department Care Team (Late st Contact Info) Description 01/03/2024 Documentation Visit [facility] - [facility] [address] [place] [address] Phylicia Sebsatian [facility] Social History Tobacco Use Types Packs/Day Years [...] Info) Description 12/06/2024 6:45 EST Treatment [facility] - [place] [address] [place], [place] [id number] Carlota Jin MD [address] [place] [address], [facility] [address] [place] [phone] 12/08/2024 6:45 EST Treatment [facility]ial[facility] [address] [place], [place] [address] Carlota Jin MD [address] [place] [address], [facility] [address] [place] [phone] 12/11/2024 6:45 EST Treatment [facility] Dial[facility] [address] [place], [place] [id number] aCrlota Jin MD [address] [place] [address], [facility] [address] [place] [phone] 12/13/2024 6:45 EST Treatment [facility] [address] [place], [place] [address] Carlota Jin MD 1 [facility] Level [address] [place] [phone] 12/15/2024 6:45 EST Treatment [facility] - [place] [address] [place], [place] [address] Carlota Jin MD 1 [facility], [facility] 2 [place] [phone] 12/18/2024 6:45 EST Treatment [facility] - [place] [address] [place] [address] Carlota Jin MD 1 [facility], [facility] [address] [place] [phone] 12/20/2024 6:45 EST Treatment [facility] [place] [address] [place] [address] Carlota Jin MD 1 [facility], [facility] [address] [place] [phone] 12/22/2024 6:45 EST Treatment [facility] [address] [place], [place] [address] Carlota Jin MD 1 [facility], [facility] [address] [place] [phone] 12/25/2024 6:45 EST Treatment [facility] [place] [address] [place], [place] [address] Carlota Jin MD 1 [facility], [facility] [address] [place] [phone] 12/27/2024 6:45 EST Treatment [facility] - [place] [address] [place], [place] [address] Carlota Jin MD 1 [facility], [facility] [address] [place] [phone] 12/29/2024 6:45 EST Treatment [facility] - [place] [address] [place], [place] [id number] Carlota Jin MD 1 [facility], [facility] [address] [place] [phone] 01/01/2025 6:45 EDT Treatment [facility] - [place] [address] [place], [place] [address] Carlota Jin MD 1 [facility], [facility] 2 [place] [phone] 01/03/2025 6:45 EDT Treatment [facility] - [place] [address] [place], [place] [address] Carlota Jin MD 1 [facility], [facility] 2 [place] [phone] 01/05/2025 6:45 EDT Treatment [facility] - [place] [address] [place], [place] [address] Carlota Jin MD 1 [facility], [facility] 2 [place] [phone] 01/08/2025 6:45 EDT Treatment [facility] - [place] [address] [place], [place] [address] Carlota Jin MD 1 [facility], [facility] 2 [place] [phone] 01/10/2025 6:45 EDT Treatment [facility] - [place] [address] [place], [place] [address] Carlota Jin MD 1 [facility], [facility] [address] [place] [phone] 01/12/2025 6:45 EDT Treatment [facility] - [place] [address] [place], [place] [address] Carlota Jin MD 1 [facility], [facility] 2 [place] [phone] 01/15/2025 6:45 EDT Treatment [facility] - [place] [address] [place], [place] [address] Carlota Jin MD 1 [facility], [facility] 2 [place] [phone] 01/17/2025 6:45 EDT Treatment [facility] - [place] [address] [place], [place] [address] Carlota Jin MD 1 [facility], [facility] 2 [place] [phone] 01/19/2025 6:45 EDT Treatment [facility] - [place] [address] [place], [place] [address] Carlota Jin MD 1 [facility], [facility] [address] [place] [phone] 01/22/2025 6:45 EDT Treatment [facility] - [place] [address] [place], [place] [address] Carlota Jin MD 1 [facility], [facility] [address] [place] [phone] 01/24/2025 6:45 EDT Treatment [facility] - [place] [address] [place], [place] [address] Carlota Jin MD 1 [facility], [facility] 2 [place] [phone] 01/26/2025 6:45 EDT Treatment [facility] - [place] [address] [place], [place] [address] Carlota Jin MD 1 [facility], [facility] 2 [place] [phone] 01/29/2025 6:45 EDT Treatment [facility] - [place] [address] [place], [place] [address] Carlota Jin MD 1 [facility], [facility] 2 [place] [phone] 01/31/2025 6:45 EDT Treatment [facility] - [place] [address] [place], [place] [address] Carlota Jin MD 1 [facility], [facility] [address] [place] [phone] 02/02/2025 6:45 EDT Treatment [facility] - [place] [address] [place] [address] Carlota Jin MD 1 [facility], [facility] 2 [place] [phone] 02/05/2025 6:45 EDT Treatment [facility] - [place] [address] [place] [address] Carlota Jin MD 1 [facility], [address] [phone] 02/07/2025 6:45 EDT Treatment [facility] - [place] [address] [place], [place] [address] Carlota Jin MD 1 [facility], [address] [phone] 02/09/2025 6:45 EDT Treatment [facility] - [place] [address] [place], [place] [address] Carlota Jin MD 1 [facility], [address] [phone] 02/12/2025 6:45 EDT Treatment [facility] - [place] [address] [place], [place] [address] Carlota Jin MD 1 [facility], [address] [phone] 02/14/2025 6:45 EDT Treatment [facility] - [place] [address] [place], [place] [address] Carlota Jin MD 1 [facility], [facility] 2 [place] [phone] 02/16/2025 6:45 EDT Treatment [facility] - [place] [address] [place], [place] [id number] Carlota Jin MD 1 [facility], [facility] [address] [place] [phone] 02/19/2025 6:45 EDT Treatment [facility] - [place] [address] [place], [place] [address] Carlota Jin MD [address] [place] [address], [facility] [address] [place] [phone] 02/21/2025 6:45 EDT Treatment [facility] - [place] [address] [place], [place] [id number] Carlota Jin MD [address] [place] [address], [address] [phone] documented as of this encounter Visit Diagnoses Not on filedocumented in this encounter Additional Health Concerns Infection Onset Date Last Indicated Resolved Time COVID-19 Comment:Collected @ [facility]. 03/12/2024 03/13/2024 04/01/2024 22: 15 EDT R/O COVID-19 05/30/2024 05/30/2024 05/30/2024 20:5 0 EDT documented as of this encounter Care Teams Pump Tender Relationship Specialty Start Date End Date Ken Greer MD [address] [place] [address] PCP - General 07/07/23 Kiel Powers Executive Rec[employer]iter Nephrology 05/31/24 documented as of this encounter
--- OUTSIDE RECORDS SUMMARY | 2024-12-05 12:11 | XMS_ITS | Encounter Summary ---
Author Organization [facility] Address [address] [place] [address] Care Team Providers Care Crew Car Driver Name Role Phone Ken Greer MD Primary Care Provider [phone] Encounter Details Date Type Department Care Team (Late st Contact Info) Description 12/31/2023 Documentation Visit [address] [place], [place] [address] Melissa Crespo, RN Social History Tobacco Use [...] Contact Info) Description 12/06/2024 6:45 EST Treatment [facility] [place] [address] [place], [place] [id number] Carlota Jin MD 1 [facility], [facility] [address] [place] [phone] 12/08/2024 6:45 EST Treatment [facility] [place] [address] [place], [place] [id number] Carlota Jin MD 1 [facility] 2 [place] [phone] 12/11/2024 6:45 EST Treatment [facility] [place] [address] [place], [place] [phone] Carlota Jin MD 1 [facility], [facility] 2 [place] [phone] 12/13/2024 6:45 EST Treatment [facility] [address] [place], [place] [id number] Carlota Jin MD 1 [facility], [facility] [address] [place] [phone] 12/15/2024 6:45 EST Treatment [facility] [place] [address] [place], [place] [id number] Carlota Jin MD 1 [facility], [facility] [address] [place] [phone] 12/18/2024 6:45 EST Treatment [facility] [place] [address] [place], [place] [phone] Carlota Jin MD 1 [facility], [facility] 2 [place] [phone] 12/20/2024 6:45 EST Treatment [facility] [place] [address] [place], [place] [phone] Carlota Jin MD 1 [facility], [facility] [address] [place] [phone] 12/22/2024 6:45 EST Treatment [facility] [address] [place], [place] [phone] Carlota Jin MD 1 [facility], [facility] [address] [place] [phone] 12/25/2024 6:45 EST Treatment [facility] [address] [place], [place] [phone] Carlota Jin MD 1 [facility], [facility] [address] [place] [phone] 12/27/2024 6:45 EST Treatment [facility] [place] [address] [place], [place] [id number] Carlota Jin MD 1 [facility], [facility] 2 [place] [phone] 12/29/2024 6:45 EST Treatment [facility] [place] [address] [place], [place] [phone] Carlota Jin MD 1 [facility], [address] [phone] 01/01/2025 6:45 EDT Treatment [facility] [place] [address] [place], [place] [phone] Carlota Jin MD 1 [facility], [address] [phone] 01/03/2025 6:45 EDT Treatment [facility] [place] [address] [place], [place] [id number] Carlota Jin MD 1 [facility], [address] [phone] 01/05/2025 6:45 EDT Treatment [facility] [place] [address] [place], [place] [phone] Carlota Jin MD [address] [place] [address], [facility] 2 [place] [phone] 01/08/2025 6:45 EDT Treatment [facility] [place] [address] [place], [place] [phone] Carlota Jin MD 1 [facility], Level [address] [place] [phone] 01/10/2025 6:45 EDT Treatment [facility] [place] [address] [place], [place] [address] Carlota Jin MD 1 [facility], [facility] 2 [place] [phone] 01/12/2025 6:45 EDT Treatment [facility] [place] [address] [place], [place] [phone] Carlota Jin MD 1 [facility], [facility] 2 [place] [phone] 01/15/2025 6:45 EDT Treatment [facility] [place] [address] [place], [place] [id number] Carlota Jin MD 1 [facility], [facility] 2 [place] [phone] 01/17/2025 6:45 EDT Treatment [facility] [address] [place], [place] [phone] Carlota Jin MD 1 [facility], [facility] 2 [place] [phone] 01/19/2025 6:45 EDT Treatment [facility] [address] [place], [place] [phone] Carlota Jin MD 1 [facility], [facility] 2 [place] [phone] 01/22/2025 6:45 EDT Treatment [facility] [place] [address] [place], [place] [phone] Carlota Jin MD 1 [facility], [facility] 2 [place] [phone] 01/24/2025 6:45 EDT Treatment [facility] [place] [address] [place], [place] [phone] Carlota Jin MD 1 [facility], [facility] 2 [place] [phone] 01/26/2025 6:45 EDT Treatment [facility] [place] [address] [place], [place] [phone] Carlota Jin MD 1 [facility], [facility] 2 [place] [phone] 01/29/2025 6:45 EDT Treatment [facility] [place] [address] [place], [place] [phone] Carlota Jin MD 1 [facility], [facility] 2 [place] [phone] 01/31/2025 6:45 EDT Treatment [facility] [place] [address] [place], [place] [phone] Carlota Jin MD 1 [facility], [facility] 2 [place] [phone] 02/02/2025 6:45 EDT Treatment [facility] [place] [address] [place], [place] [phone] Carlota Jin MD 1 [facility], [facility] 2 [place] [phone] 02/05/2025 6:45 EDT Treatment [facility] [place] [address] [place], [place] [phone] Carlota Jin MD 1 [facility], [facility] [address] [place] [phone] 02/07/2025 6:45 EDT Treatment [facility] [place] [address] [place] [address] Carlota Jin MD 1 [facility], [address] [phone] 02/09/2025 6:45 EDT Treatment [facility] [place] [address] [place], [place] [phone] Carlota Jin MD 1 [facility], [address] [phone] 02/12/2025 6:45 EDT Treatment [facility] [place] [address] [place] [address] Carlota Jin MD 1 [facility], [facility] 2 [place] [phone] 02/14/2025 6:45 EDT Treatment [facility] [place] [address] [place], [place] [phone] Carlota Jin MD 1 [facility], [facility] [address] [place] [phone] 02/16/2025 6:45 EDT Treatment [facility] [address] [place], [place] [phone] Carlota Jin MD 1 [facility], [facility] [address] [place] [phone] 02/19/2025 6:45 EDT Treatment [facility] [address] [place], [place] [phone] Carlota Jin MD [address] [place] [address], [facility] 2 [place] [phone] 02/21/2025 6:45 EDT Treatment [facility] [address] [place], [place] [phone] Carlota Jin MD [address] [place] [address], [facility] 2 [place] [phone] documented as of this encounter Visit Diagnoses Not on filedocumented in this encounter Care Teams Crew Car Driver Relationship Specialty Start Date End Date [place] [address] PCP - General 07/07/23 documented as of this encounter
--- OUTSIDE RECORDS SUMMARY | 2024-12-05 12:11 | XMS_ITS | Encounter Summary ---
Author Organization [facility] Address [address] [place] [address] Care Team Providers Care Rougher Helper Name Role Phone Ken Greer MD Primary Care Provider [phone] Encounter Details Date Type Department Care Team (Late st Contact Info) Description 01/03/2024 Documentation Visit [facility] [address] [place] [address] Alexa Estrada [facility] [address] [place] [address] Social History Tobacco Use Types Packs/Day Years [...] Date of Assessment Author No 12/20/2023 14:00 Angéilca Lazo RN * Because of a physical, [...] this encounter Progress Notes * Alexa Estrada, CASTING MOLDER - 01/03/2024 1254 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 SHANNON will continue to follow. Current Living Situation: Lives with family and Lives with friends Lives with family Pt lives with his , Hoda, in their apartment in [place]. He rents the apartment and has a [...] Emergency Room Visit in Previous 3 Months: Yes: 12/22 and 11/07 with subsequent hospitalization Mental Health: Change in cognitive function? No Current or past mental health issues including feelings of anxiety or depression: Yes: anxiety Previous mental health diagnosis? No Past or current suicidal thinking/attempt? No Current emotional status: Difficulties in coping, Reports anxiety, Reports depression, Reports new stressors How does patient manage mental health: Pt utilizes medication for anxiety Patient/Family Strengths: Pt is friendly and engaging Interests/Spiritual/[facility] Practice: No spiritual practices Depression Screening: Is [...] Treatment [facility] [place] [address] [place] [address] Carlota Jin MD 1 [facility], Level [address] [place] [phone] 12/08/2024 6:45 EST Treatment [facility] [place] [address] [place] [address] Carlota Jin MD 1 [facility], Level [address] [place] [phone] 12/11/2024 6:45 EST Treatment [facility] [place] [address] [place], [place] [address] Carlota Jin MD 1 [facility], [facility] 2 [place] [phone] 12/13/2024 6:45 EST Treatment [facility] [place] [address] [place], [place] [phone] Carlota Jin MD 1 [facility], [facility] 2 [place] [phone] 12/15/2024 6:45 EST Treatment [facility] [place] [address] [place], [place] [phone] Carlota Jin MD 1 [facility], [facility] 2 [place] [phone] 12/18/2024 6:45 EST Treatment [facility] [place] [address] [place] [address] Carlota Jin MD 1 [facility], [facility] 2 [place] [phone] 12/20/2024 6:45 EST Treatment [facility] [place] [address] [place], [place] [id number] Carlota Jin MD 1 [facility], [facility] 2 [place] [phone] 12/22/2024 6:45 EST Treatment [facility] [place] [address] [place], [place] [id number] Carlota Jin MD 1 [facility], [facility] 2 [place] [phone] 12/25/2024 6:45 EST Treatment [facility] [place] [address] [place], [place] [id number] Carlota Jin MD 1 [facility], [facility] 2 [place] [phone] 12/27/2024 6:45 EST Treatment [facility] [place] [address] [place], [place] [id number] Carlota Jin MD 1 [facility], [facility] 2 [place] [phone] 12/29/2024 6:45 EST Treatment [facility] [place] [address] [place], [place] [id number] Carlota Jin MD 1 [facility], [facility] 2 [place] [phone] 01/01/2025 6:45 EDT Treatment [facility] [place] [address] [place], [place] [id number] Carlota Jin MD 1 [facility], [facility] 2 [place] [phone] 01/03/2025 6:45 EDT Treatment [facility] [place] [address] [place], [place] [id number] Carlota Jin MD 1 [facility], Level [address] [place] [phone] 01/05/2025 6:45 EDT Treatment [facility] [place] [address] [place], [place] [address] Carlota Jin MD 1 [facility], [facility] 2 [place] [phone] 01/08/2025 6:45 EDT Treatment [facility] [address] [place], [place] [id number] Carlota Jin MD 1 [facility], [facility] 2 [place] [phone] 01/10/2025 6:45 EDT Treatment [facility] [place] [address] [place] [address] Carlota Jin MD 1 [facility], [facility] 2 [place] [phone] 01/12/2025 6:45 EDT Treatment [facility] [address] [place], [place] [id number] Carlota Jin MD 1 [facility], [facility] 2 [place] [phone] 01/15/2025 6:45 EDT Treatment [facility] [address] [place], [place] [id number] Carlota Jin MD 1 [facility], [facility] 2 [place] [phone] 01/17/2025 6:45 EDT Treatment [facility] [place] [address] [place], [place] [id number] Carlota Jin MD 1 [facility], [facility] 2 [place] [phone] 01/19/2025 6:45 EDT Treatment [facility] [place] [address] [place], [place] [id number] Carlota Jin MD 1 [facility], [facility] 2 [place] [phone] 01/22/2025 6:45 EDT Treatment [facility] [place] [address] [place], [place] [id number] Carlota Jin MD [address] [place] [address], [facility] 2 [place] [phone] 01/24/2025 6:45 EDT Treatment [facility] [place] [address] [place], [place] [id number] Carlota Jin MD 1 [facility], [facility] 2 [place] [phone] 01/26/2025 6:45 EDT Treatment [facility] [place] [address] [place], [place] [id number] Carlota Jin MD 1 [facility], [facility] 2 [place] [phone] 01/29/2025 6:45 EDT Treatment [facility] [place] [address] [place], [place] [phone] Carlota Jin MD 1 [facility], [facility] 2 [place] [phone] 01/31/2025 6:45 EDT Treatment [facility] [place] [address] [place], [place] [id number] Carlota Jin MD 1 [facility], [facility] 2 [place] [phone] 02/02/2025 6:45 EDT Treatment [facility] [place] [address] [place] [address] Carlota Jin MD 1 [facility], [address] [phone] 02/05/2025 6:45 EDT Treatment [facility] [place] [address] [place], [place] [id number] Carlota Jin MD 1 [facility], [address] [phone] 02/07/2025 6:45 EDT Treatment [facility] [place] [address] [place] [address] Carlota Jin MD 1 [facility], [facility] 2 [place] [phone] 02/09/2025 6:45 EDT Treatment [facility] [place] [address] [place], [place] [id number] Carlota Jin MD 1 [facility], [facility] 2 [place] [phone] 02/12/2025 6:45 EDT Treatment [facility] [place] [address] [place], [place] [id number] Carlota Jin MD [address] [phone] 02/14/2025 6:45 EDT Treatment [facility] [place] [address] [place], [place] [id number] Carlota Jin MD [address] [place] [phone] 02/16/2025 6:45 EDT Treatment [facility] [place] [address] [place], [place] [id number] Carlota Jin MD [address] [place] [phone] 02/19/2025 6:45 EDT Treatment [facility] [place] [address] [place], [place] [address] Carlota Jin MD [address] [place] [phone] 02/21/2025 6:45 EDT Treatment [facility] [place] [address] [place], [place] [id number] Carlota Jin MD [address] [place] [phone] documented as of this encounter Visit Diagnoses Not on filedocumented in this encounter Care Teams Rougher Helper Relationship Specialty Start Date End Date Ken Greer MD [address] [facility] [place] [address] PCP - General 07/07/23 documented as of this encounter
--- OUTSIDE RECORDS SUMMARY | 2024-12-05 12:11 | XMS_ITS | Encounter Summary ---
Author Organization [facility] Address [address] [place] [address] Care Team Providers Care Family Service Aide Name Role Phone Ken Greer MD Primary Care Provider [phone] Encounter Details Date Type Department Care Team (Late st Contact Info) Description 12/24/2023 Documentation Visit [address] [place], [place] [address] Melissa Crespo, RN Social History Tobacco Use [...] EST Treatment [facility] [place] [address] [place], [place] [id number] Carlota Jin MD 1 [facility], [facility] [address] [place] [phone] 12/08/2024 6:45 EST Treatment [facility] [place] [address] [place], [place] [id number] Carlota Jin MD 1 [facility] [address] [place] [phone] 12/11/2024 6:45 EST Treatment [facility] [place] [address] [place], [place] [id number] Carlota Jin MD 1 [facility], [facility] [address] [place] [phone] 12/13/2024 6:45 EST Treatment [facility] [address] [place], [place] [id number] Carlota Jin MD 1 [facility], [facility] [address] [place] [phone] 12/15/2024 6:45 EST Treatment [facility] [place] [address] [place], [place] [id number] Carlota Jin MD 1 [facility], [facility] [address] [place] [phone] 12/18/2024 6:45 EST Treatment [facility] [place] [address] [place], [place] [id number] Carlota Jin MD 1 [facility], [facility] [address] [place] [phone] 12/20/2024 6:45 EST Treatment [facility] [place] [address] [place], [place] [id number] Carlota Jin MD 1 [facility], [facility] [address] [place] [phone] 12/22/2024 6:45 EST Treatment [facility] [address] [place], [place] [id number] Carlota Jin MD 1 [facility], [facility] [address] [place] [phone] 12/25/2024 6:45 EST Treatment [facility] [address] [place], [place] [id number] Carlota Jin MD 1 [facility], [facility] [address] [place] [phone] 12/27/2024 6:45 EST Treatment [facility] [place] [address] [place], [place] [id number] Carlota Jin MD 1 [facility], [facility] [address] [place] [phone] 12/29/2024 6:45 EST Treatment [facility] [place] [address] [place], [place] [id number] Carlota Jin MD 1 [facility], [address] [phone] 01/01/2025 6:45 EDT Treatment [facility] [place] [address] [place], [place] [id number] Carlota Jin MD 1 [facility], [address] [phone] 01/03/2025 6:45 EDT Treatment [facility] [place] [address] [place], [place] [id number] Carlota Jin MD 1 [facility], [address] [phone] 01/05/2025 6:45 EDT Treatment [facility] [place] [address] [place], [place] [id number] Carlota Jin MD [address] [place] [address], [facility] [address] [place] [phone] 01/08/2025 6:45 EDT Treatment [facility] [place] [address] [place], [place] [id number] Carlota Jin MD 1 [facility], Level [address] [place] [phone] 01/10/2025 6:45 EDT Treatment [facility] [place] [address] [place], [place] [address] Carlota Jin MD 1 [facility], [facility] 2 [place] [phone] 01/12/2025 6:45 EDT Treatment [facility] [place] [address] [place], [place] [id number] Carlota Jin MD 1 [facility], [facility] [address] [place] [phone] 01/15/2025 6:45 EDT Treatment [facility] [place] [address] [place], [place] [id number] Carlota Jin MD 1 [facility], [facility] [address] [place] [phone] 01/17/2025 6:45 EDT Treatment [facility] [address] [place], [place] [id number] Carlota Jin MD 1 [facility], [facility] [address] [place] [phone] 01/19/2025 6:45 EDT Treatment [facility] [address] [place], [place] [id number] Carlota Jin MD 1 [facility], [facility] 2 [place] [phone] 01/22/2025 6:45 EDT Treatment [facility] [place] [address] [place], [place] [id number] Carlota Jin MD 1 [facility], [facility] 2 [place] [phone] 01/24/2025 6:45 EDT Treatment [facility] [place] [address] [place], [place] [id number] Carlota Jin MD 1 [facility], [facility] [address] [place] [phone] 01/26/2025 6:45 EDT Treatment [facility] [place] [address] [place], [place] [id number] Carlota Jin MD 1 [facility], [facility] [address] [place] [phone] 01/29/2025 6:45 EDT Treatment [facility] [place] [address] [place], [place] [id number] Carlota Jin MD 1 [facility], [facility] [address] [place] [phone] 01/31/2025 6:45 EDT Treatment [facility] [place] [address] [place], [place] [id number] Carlota Jin MD 1 [facility], [facility] [address] [place] [phone] 02/02/2025 6:45 EDT Treatment [facility] [place] [address] [place] [id number] Carlota Jin MD 1 [facility], [facility] [address] [place] [phone] 02/05/2025 6:45 EDT Treatment [facility] [place] [address] [place], [place] [id number] Carlota Jin MD 1 [facility], [facility] [address] [place] [phone] 02/07/2025 6:45 EDT Treatment [facility] [place] [address] [place] [address] Carlota Jin MD 1 [facility], [address] [phone] 02/09/2025 6:45 EDT Treatment [facility] [place] [address] [place], [place] [id number] Carlota Jin MD 1 [facility], [address] [phone] 02/12/2025 6:45 EDT Treatment [facility] [place] [address] [place] [address] Carlota Jin MD 1 [facility], [facility] [address] [place] [phone] 02/14/2025 6:45 EDT Treatment [facility] [place] [address] [place], [place] [id number] Carlota Jin MD 1 [facility], [facility] 2 [place] [phone] 02/16/2025 6:45 EDT Treatment [facility] [address] [place], [place] [id number] Carlota Jin MD 1 [facility], [facility] 2 [place] [phone] 02/19/2025 6:45 EDT [facility] [address] [place], [place] [id number] Carlota Jin MD [address] [place] [address], [facility] [address] [place] [phone] 02/21/2025 6:45 EDT Treatment [facility] [address] [place], [place] [phone] Carlota Jin MD [address] [place] [address], [facility] [address] [place] [phone] documented as of this encounter Visit Diagnoses Not on filedocumented in this encounter Care Teams Family Service Aide Relationship Specialty Start Date End Date [place] [address] PCP - General 07/07/23 documented as of this encounter
--- OUTSIDE RECORDS SUMMARY | 2024-12-05 12:11 | XMS_ITS | Encounter Summary ---
Author Organization [facility] Address [address] [place] [address] Care Team Providers Care Harvest Worker Name Role Phone Ken Greer MD Primary Care Provider Kiel Powers Unavailable Unavailable Encounter Details Date Type Department Care Team (Late st Contact Info) Description 12/30/2023 Orders Only [facility] [address] [place] [address] Phylicia Sebastian [facility] Social History Tobacco Use Types Packs/Day [...] Contact Info) Description 12/06/2024 6:45 EST Treatment [facility] [place] [address] [place], [place] [phone] Carlota Jin MD [address] [place] [address], [facility] [address] [place] [phone] 12/08/2024 6:45 EST Treatment [facility] [address] [place], [place] [id number] Carlota Jin MD [address] [place] [address], [facility] [address] [place] [phone] 12/11/2024 6:45 EST Treatment [facility] [address] [place], [place] [id number] Carlota Jin MD [address] [place] [address], [facility] [address] [place] [phone] 12/13/2024 6:45 EST Treatment [facility] [address] [place], [place] [phone] Carlota Jin MD 1 [facility] [address] [place] [phone] 12/15/2024 6:45 EST Treatment [facility] [place] [address] [place], [place] [address] Carlota Jin MD 1 [facility], [facility] 2 [place] [phone] 12/18/2024 6:45 EST Treatment [facility] [place] [address] [place] [address] Carlota Jin MD 1 [facility], [facility] [address] [place] [phone] 12/20/2024 6:45 EST Treatment [facility] [place] [address] [place] [address] Carlota Jin MD 1 [facility], [facility] [address] [place] [phone] 12/22/2024 6:45 EST Treatment [facility] [address] [place], [place] [id number] Carlota Jin MD 1 [facility], [facility] [address] [place] [phone] 12/25/2024 6:45 EST Treatment [facility] [place] [address] [place], [place] [id number] Carlota Jin MD 1 [facility], [facility] [address] [place] [phone] 12/27/2024 6:45 EST Treatment [facility] [place] [address] [place], [place] [id number] Carlota Jin MD 1 [facility], [facility] [address] [place] [phone] 12/29/2024 6:45 EST Treatment [facility] [place] [address] [place], [place] [id number] Carlota Jin MD 1 [facility], [facility] [address] [place] [phone] 01/01/2025 6:45 EDT Treatment [facility] [place] [address] [place], [place] [id number] Carlota Jin MD 1 [facility], [facility] [address] [place] [phone] 01/03/2025 6:45 EDT Treatment [facility] [place] [address] [place], [place] [id number] Carlota Jin MD 1 [facility], [facility] [address] [place] [phone] 01/05/2025 6:45 EDT Treatment [facility] [place] [address] [place], [place] [id number] Carlota Jin MD 1 [facility], [facility] [address] [place] [phone] 01/08/2025 6:45 EDT Treatment [facility] [place] [address] [place], [place] [id number] Carlota Jin MD 1 [facility], [facility] [address] [place] [phone] 01/10/2025 6:45 EDT Treatment [facility] [place] [address] [place], [place] [id number] Carlota Jin MD 1 [facility], [facility] [address] [place] [phone] 01/12/2025 6:45 EDT Treatment [facility] [place] [address] [place], [place] [id number] Carlota Jin MD 1 [facility], [facility] [address] [place] [phone] 01/15/2025 6:45 EDT Treatment [facility] [place] [address] [place], [place] [id number] Carlota Jin MD 1 [facility], [facility] [address] [place] [phone] 01/17/2025 6:45 EDT Treatment [facility] [place] [address] [place], [place] [id number] Carlota Jin MD 1 [facility], [facility] [address] [place] [phone] 01/19/2025 6:45 EDT Treatment [facility] [place] [address] [place], [place] [id number] Carlota Jin MD 1 [facility], [facility] [address] [place] [phone] 01/22/2025 6:45 EDT Treatment [facility] [place] [address] [place], [place] [id number] Carlota Jin MD 1 [facility], [facility] [address] [place] [phone] 01/24/2025 6:45 EDT Treatment [facility] [place] [address] [place], [place] [id number] Carlota Jin MD 1 [facility], [facility] [address] [place] [phone] 01/26/2025 6:45 EDT Treatment [facility] [place] [address] [place], [place] [id number] Carlota Jin MD 1 [facility], [facility] [address] [place] [phone] 01/29/2025 6:45 EDT Treatment [facility] [place] [address] [place], [place] [address] Carlota Jin MD 1 [facility], [facility] [address] [place] [phone] 01/31/2025 6:45 EDT Treatment [facility] [place] [address] [place], [place] [id number] Carlota Jin MD 1 [facility], [facility] [address] [place] [phone] 02/02/2025 6:45 EDT Treatment [facility] [place] [address] [place] [id number] Carlota Jin MD 1 [facility], [facility] [address] [place] [phone] 02/05/2025 6:45 EDT Treatment [facility] [place] [address] [place] [address] Carlota Jin MD 1 [facility], [address] [phone] 02/07/2025 6:45 EDT Treatment [facility] [place] [address] [place], [place] [address] Carlota Jin MD 1 [facility], [address] [phone] 02/09/2025 6:45 EDT Treatment [facility] [place] [address] [place], [place] [id number] Carlota Jin MD 1 [facility], [address] [phone] 02/12/2025 6:45 EDT Treatment [facility] [place] [address] [place], [place] [id number] Carlota Jin MD 1 [facility], [address] [phone] 02/14/2025 6:45 EDT Treatment [facility] [place] [address] [place], [place] [id number] Carolta Jin MD 1 [facility], [facility] [address] [place] [phone] 02/16/2025 6:45 EDT Treatment [facility] [place] [address] [place], [place] [id number] Carlota Jin MD 1 [facility], [facility] [address] [place] [phone] 02/19/2025 6:45 EDT Treatment [facility] [place] [address] [place], [place] [id number] Carlota Jin MD [address] [place] [address], [facility] [address] [place] [phone] 02/21/2025 6:45 EDT Treatment [facility] [place] [address] [place], [place] [phone] Carlota Jin MD [address] [place] [address], [address] [phone] documented as of this encounter Visit Diagnoses Not on filedocumented in this encounter Additional Health Concerns Infection Onset Date Last Indicated Resolved Time COVID-19 Comment:Collected @ [facility]. 03/12/2024 03/13/2024 04/01/2024 22: 15 EDT R/O COVID-19 05/30/2024 05/30/2024 05/30/2024 20:5 0 EDT documented as of this encounter Care Teams Harvest Worker Relationship Specialty Start Date End Date Ken Greer MD [address] [place] [address] PCP - General 07/07/23 Kiel Powers Personnel Administrator Nephrology 05/31/24 documented as of this encounter
--- OUTSIDE RECORDS SUMMARY | 2024-12-05 12:12 | XMS_ITS | Encounter Summary ---
Author Organization [facility] Address [address] [place] [address] Care Team Providers Care Clinical Psychologist Private Practice Name Role Phone Ken Greer MD Primary Care Provider [phone] Encounter Details Date Type Department Care Team (Late st Contact Info) Description 12/22/2023 Documentation Visit [address] [place], [place] [address] Marcela Cox, VIDYA Social History Tobacco Use [...] - [place] [address] [place], [place] [id number] Carlota Jin MD 1 [facility], [facility] [place] [phone] 12/08/2024 6:45 EST Treatment [facility] [place] [address] [place], [place] [id number] Carlota Jin MD 1 [facility] 2 [place] [phone] 12/11/2024 6:45 EST Treatment [facility] [place] [address] [place], [place] [id number] Carlota Jin MD 1 [facility], [facility] [place] [phone] 12/13/2024 6:45 EST Treatment [facility] [address] [place], [place] [id number] Carlota Jin MD 1 [facility] [place] [phone] 12/15/2024 6:45 EST Treatment [facility] [place] [address] [place], [place] [id number] Carlota Jin MD 1 [facility] [place] [phone] 12/18/2024 6:45 EST Treatment [facility] [place] [address] [place], [place] [id number] Carlota Jin MD 1 [facility], [facility] [place] [phone] 12/20/2024 6:45 EST Treatment [facility] [place] [address] [place], [place] [id number] Carlota Jin MD 1 [facility], [facility] [place] [phone] 12/22/2024 6:45 EST Treatment [facility] [address] [place], [place] [id number] Carlota Jin MD 1 [facility] [place] [phone] 12/25/2024 6:45 EST Treatment [facility] [address] [place], [place] [id number] Carlota Jin MD 1 [facility], [facility] [place] [phone] 12/27/2024 6:45 EST Treatment [facility] [place] [address] [place], [place] [id number] Carlota Jin MD 1 [facility], [facility] [place] [phone] 12/29/2024 6:45 EST Treatment [facility] [place] [address] [place], [place] [id number] Carlota Jin MD 1 [facility], [address] [phone] 01/01/2025 6:45 EDT Treatment [facility] [place] [address] [place], [place] [id number] Carlota Jin MD 1 [facility], [address] [phone] 01/03/2025 6:45 EDT Treatment [facility] [place] [address] [place], [place] [id number] Carlota Jin MD 1 [facility], [address] [phone] 01/05/2025 6:45 EDT Treatment [facility] [place] [address] [place], [place] [id number] Carlota Jin MD [address] [place] [address], [facility] [place] [phone] 01/08/2025 6:45 EDT Treatment [facility] [place] [address] [place], [place] [id number] Carlota Jin MD 1 [facility], Level 2 [place] [phone] 01/10/2025 6:45 EDT Treatment [facility] [place] [address] [place], [place] [address] Carlota Jin MD 1 [facility] [place] [phone] 01/12/2025 6:45 EDT Treatment [facility] [place] [address] [place], [place] [id number] Carlota Jin MD 1 [facility], [facility] [place] [phone] 01/15/2025 6:45 EDT Treatment [facility] [place] [address] [place], [place] [phone] Carlota Jin MD 1 [facility], [facility] [place] [phone] 01/17/2025 6:45 EDT Treatment [facility] [address] [place], [place] [id number] Carlota Jin MD 1 [facility], [facility] [place] [phone] 01/19/2025 6:45 EDT Treatment [facility] [address] [place], [place] [id number] Carlota Jin MD 1 [facility], [facility] [place] [phone] 01/22/2025 6:45 EDT Treatment [facility] [place] [address] [place], [place] [phone] Carlota Jin MD 1 [facility], [facility] [place] [phone] 01/24/2025 6:45 EDT Treatment [facility] [place] [address] [place], [place] [phone] Carlota Jin MD 1 [facility], [facility] [place] [phone] 01/26/2025 6:45 EDT Treatment [facility] [place] [address] [place], [place] [id number] Carlota Jin MD 1 [facility], [facility] [place] [phone] 01/29/2025 6:45 EDT Treatment [facility] [place] [address] [place], [place] [id number] Carlota Jin MD 1 [facility], [facility] [place] [phone] 01/31/2025 6:45 EDT Treatment [facility] [place] [address] [place], [place] [phone] Carlota Jin MD 1 [facility], [facility] [place] [phone] 02/02/2025 6:45 EDT Treatment [facility] [place] [address] [place], [place] [id number] Carlota Jin MD 1 [facility], [facility] [place] [phone] 02/05/2025 6:45 EDT Treatment [facility] [place] [address] [place], [place] [phone] Carlota Jin MD 1 [facility], [facility] [place] [phone] 02/07/2025 6:45 EDT Treatment [facility] [place] [address] [place] [address] Carlota Jin MD 1 [facility], [address] [phone] 02/09/2025 6:45 EDT Treatment [facility] [place] [address] [place], [place] [id number] Carlota Jin MD 1 [facility], [address] [phone] 02/12/2025 6:45 EDT Treatment [facility] [place] [address] [place] [address] Carlota Jin MD 1 [facility], [facility] [place] [phone] 02/14/2025 6:45 EDT Treatment [facility] [place] [address] [place], [place] [id number] Carlota Jin MD 1 [facility], [facility] [place] [phone] 02/16/2025 6:45 EDT Treatment [facility] [address] [place], [place] [id number] Carlota Jin MD 1 [facility], [facility] [place] [phone] 02/19/2025 6:45 EDT [facility] [address] [place], [place] [phone] Carlota Jin MD [address] [place] [address], [facility] [place] [phone] 02/21/2025 6:45 EDT Treatment [facility] [address] [place], [place] [id number] Carlota Jin MD [address] [place] [address], [facility] [place] [phone] documented as of this encounter Visit Diagnoses Not on filedocumented in this encounter Care Teams Clinical Psychologist Private Practice Relationship Specialty Start Date End Date [place] [address] PCP - General 07/07/23 documented as of this encounter
--- OUTSIDE RECORDS SUMMARY | 2024-12-05 12:12 | XMS_ITS | Encounter Summary ---
Author Organization [facility] Address [address] [place] [address] Care Team Providers Care Machine Operator Slitter Technician Name Role Phone Ken Greer MD Primary Care Provider [phone] Kiel Powers Unavailable Unavailable Encounter Details Date Type Department Care Team (Late st Contact Info) Description 12/22/2023 Documentation Visit [facility] Home Dialysis Training & Support [address] [place], [place] [phone] Alexa Estrada, [facility] [address] [place] [address] Social History Tobacco Use Types Packs/Day Years [...] [facility] [place] [address] [place], [place] [phone] Carlota Jin MD 1 [facility], [facility] 2 [place] [phone] 12/08/2024 6:45 EST Treatment [facility] [place] [address] [place], [place] [address] Carlota Jin MD 1 [facility], [facility] 2 [place] [phone] 12/11/2024 6:45 EST Treatment [facility] [address] [place], [place] [phone] Carlota Jin MD [address] [place] [address], [facility] 2 [place] [phone] 12/13/2024 6:45 EST Treatment [facility] [place] [address] [place], [place] [address] Carlota Jin MD 1 [facility], [address] [phone] 12/15/2024 6:45 EST Treatment [facility] [place] [address] [place] [address] Carlota Jin MD 1 [facility], [address] [phone] 12/18/2024 6:45 EST Treatment [facility] [place] [address] [place], [place] [id number] Carlota Jin MD 1 [facility], [address] [phone] 12/20/2024 6:45 EST Treatment [facility] [place] [address] [place], [place] [phone] Carlota Jin MD 1 [facility], [address] [phone] 12/22/2024 6:45 EST Treatment [facility] [address] [place], [place] [id number] Carlota Jin MD [address] [phone] 12/25/2024 6:45 EST Treatment [facility] [place] [address] [place], [place] [id number] Carlota Jin MD 1 [facility], [address] [phone] 12/27/2024 6:45 EST Treatment [facility] [place] [address] [place], [place] [id number] Carlota Jin MD 1 [facility], [facility] 2 [place] [phone] 12/29/2024 6:45 EST Treatment [facility] [place] [address] [place], [place] [id number] Carlota Jin MD 1 [facility], [facility] 2 [place] [phone] 01/01/2025 6:45 EDT Treatment [facility] [place] [address] [place] [address] [address] MD [address] [facility], [facility] 2 [place] [phone] 01/03/2025 6:45 EDT Treatment [facility] [place] [address] [place], [place] [id number] Carlota Jin MD 1 [facility], [facility] 2 [place] [phone] 01/05/2025 6:45 EDT Treatment [facility] - [place] [address] [place], [place] [id number] Carlota Jin MD 1 [facility], [facility] 2 [place] [phone] 01/08/2025 6:45 EDT Treatment [facility] - [place] [address] [place], [place] [address] Carlota Jin MD 1 [facility], [facility] 2 [place] [phone] 01/10/2025 6:45 EDT Treatment [facility] [place] [address] [place], [place] [id number] Carlota Jin MD 1 [facility], [facility] 2 [place] [phone] 01/12/2025 6:45 EDT Treatment [facility] [place] [address] [place], [place] [id number] Carlota Jin MD 1 [facility], [facility] 2 [place] [phone] 01/15/2025 6:45 EDT Treatment [facility] [place] [address] [place], [place] [id number] Carlota Jin MD 1 [facility], [facility] 2 [place] [phone] 01/17/2025 6:45 EDT Treatment [facility] [place] [address] [place], [place] [id number] Carlota Jin MD 1 [facility], [facility] 2 [place] [phone] 01/19/2025 6:45 EDT Treatment [facility] [place] [address] [place], [place] [id number] Carlota Jin MD 1 [facility], [facility] 2 [place] [phone] 01/22/2025 6:45 EDT Treatment [facility] [place] [address] [place], [place] [id number] Carlota Jin MD 1 [facility], [facility] 2 [place] [phone] 01/24/2025 6:45 EDT Treatment [facility] [place] [address] [place], [place] [id number] Carlota Jin MD 1 [facility], [facility] 2 [place] [phone] 01/26/2025 6:45 EDT Treatment [facility] [place] [address] [place], [place] [id number] Carlota Jin MD 1 [facility], [facility] 2 [place] [phone] 01/29/2025 6:45 EDT Treatment [facility] [address] [place] [address] Carlota Jin MD 1 [facility], [facility] 2 [place] [phone] 01/31/2025 6:45 EDT Treatment [facility] [address] [place], [place] [id number] Carlota Jin MD 1 [facility], [facility] 2 [place] [phone] 02/02/2025 6:45 EDT Treatment [facility] [place] [address] [place], [place] [id number] Carlota Jin MD 1 [facility], [facility] 2 [place] [phone] 02/05/2025 6:45 EDT Treatment [facility] [place] [address] [place], [place] [id number] Carlota Jin MD [address] [place] [address], [address] [phone] 02/07/2025 6:45 EDT Treatment [facility] [place] [address] [place], [place] [id number] Carlota Jin MD [address] [place] [address], [address] [phone] 02/09/2025 6:45 EDT Treatment [facility] [place] [address] [place], [place] [id number] Carlota Jin MD [address] [place] [address], [facility] 2 [place] [phone] 02/12/2025 6:45 EDT Treatment [facility] [place] [address] [place], [place] [id number] Carlota Jin MD 1 [facility], [facility] 2 [place] [phone] 02/14/2025 6:45 EDT Treatment [facility] [place] [address] [place], [place] [id number] Carlota Jin MD 1 [facility], [facility] 2 [place] [phone] 02/16/2025 6:45 EDT Treatment [facility] [place] [address] [place], [place] [id number] Carlota Jin MD 1 [facility], [address] [phone] 02/19/2025 6:45 EDT Treatment [facility] [address] [place], [place] [id number] Carlota Jin MD [address] [place] [address], [address] [phone] 02/21/2025 6:45 EDT Treatment [facility] [place] [address] [place], [place] [id number] Carlota Jin MD [address] [place] [phone] documented as of this encounter Visit Diagnoses Not on filedocumented in this encounter Additional Health Concerns Infection Onset Date Last Indicated Resolved Time COVID-19 Comment:Collected @ [facility]. 03/12/2024 03/13/2024 04/01/2024 22: 15 EDT R/O COVID-19 05/30/2024 05/30/2024 05/30/2024 20:5 0 EDT documented as of this encounter Care Teams Machine Operator Slitter Technician Relationship Specialty Start Date End Date [place] [address] PCP - General 07/07/23 Kiel Powers Under Cutter Nephrology 05/31/24 documented as of this encounter
--- OUTSIDE RECORDS SUMMARY | 2024-12-05 12:12 | XMS_ITS | Encounter Summary ---
Author Organization [facility] Address [address] [place] [address] Care Team Providers Care Calender Feeder Name Role Phone Ken Greer MD Primary Care Provider [phone] Encounter Details Date Type Department Care Team (Latest Contact Info) Description 12/17/2023 - 12/17/2023 0:04 EST Hospital Encounter [facility] Secondary Reads [place] Discharge Disposition: Home [...] hearing? Answer Date of Assessment Author No 11/07/2023 1:52 Sarthak De Santiago RN * Are you blind or do you have serious difficulty seeing, even when wearing glasses? Answer Date of Assessment Author No 11/07/2023 1:52 Sarthak De Santiago RN * Do you have serious difficulty walking or climbing stairs? (5 years old or older) Answer Date of Assessment Author No 11/07/2023 1:52 Sarthak De Santiago RN * Do you have difficulty dressing or bathing? (5 years old or older) Answer Date of Assessment Author No 11/07/2023 1:52 Sarthak De Santiago RN * Because of a physical, mental, or emotional condition, do you have difficulty doing errands alone such as visiting a doctor's office or shopping? (15 years old or older) Answer Date of Assessment Author No 11/07/2023 1:52 Sarthak De Santiago RN documented as of this encounter Mental Status * Because of a physical, mental, or emotional condition, do you have serious difficulty concentrating, remembering, or making decisions? (5 years old or older) Answer Entry Date Author No 11/07/2023 1:52 Sarthak De Santiago RN documented in this encounter Medications at Time of Discharge atorvastatin (LIPITOR) 40 mg tablet Take 1 Tablet by mouth daily. calcium carbonate (TUMS) 200 mg calcium (500 mg) tablet,chewable Take 1 Tablet by mouth 3 times daily with meals. carvediloL (COREG) 12.5 mg tablet Take 1 Tablet by mouth 2 times daily. amLODIPine (NORVASC) 10 mg tablet Take 1 Tablet by mouth daily. 12/24/2023 amoxicillin (AMOXIL) 500 mg capsule Take 1 Capsule by mouth 2 times daily. 12/17/2023 12/24/2023 DULoxetine (CYMBALTA) 20 mg delayed release capsule Take 1 Capsule by mouth 2 times daily. 12/03/2023 02/28/2024 famotidine (PEPCID) 40 mg tablet Take 1 Tablet by mouth daily. 02/28/2024 FLOVENT HFA 110 mcg/actuation inhaler Inhale 1 Puff as directed. 03/08/2023 02/28/2024 LEVEMIR FLEXPEN 100 unit/mL (3 mL) injectable pen Inject 30 Units into the skin at bedtime. 01/19/2023 12/24/2023 levOFLOXacin (LEVAQUIN) 750 mg tablet 12/17/2023 12/24/2023 liraglutide (VICTOZA 2-JULY) 0.6 mg/0.1 mL (18 mg/3 mL) injectable pen Inject 1.8 mg into the skin. 11/05/2023 12/24/2023 MULTIVITAMIN ORAL Take by mouth. 12/24/2023 nicotine (NICODERM CQ) 21 mg/[address] 1 Patch onto the skin daily. 30 Each 11/11/2023 12/24/2023 nortriptyline (PAMELOR) 25 mg capsule Take 1 Capsule by mouth. 11/05/2023 12/24/2023 olmesartan (BENICAR) 5 mg tablet TAKE ONE TABLET BY MOUTH EVERY DAY STOP HCTZ 08/04/2023 12/24/2023 oxyCODONE-acetami nophen (PERCOCET) 5-325 mg per tablet TAKE ONE TABLET BY MOUTH TWICE A DAY NEEDED FOR PAIN, MAXIMUM DAILY DOSE = 2 TABLETS 12/15/2023 02/28/2024 pregabalin (LYRICA) 200 mg capsule Take 1 Capsule by mouth 2 times daily. 08/03/2023 12/24/2023 SANTYL ointment 12/07/2023 sildenafil citrate (VIAGRA) 100 mg tablet Take 1 Tablet by mouth as needed. 11/05/2023 02/28/2024 documented as of this encounter Discharge Disposition Disposition Code Departure Means Destination Home or Self Care documented in this encounter Plan of Treatment Upcoming Encounters Date Type Department Care Team (Late st Contact Info) Description 12/06/2024 6:45 EST Treatment [facility] [address] [place], [place] [id number] Carlota Jin MD [address] [place] [address] [address] [place] [phone] 12/08/2024 6:45 EST Treatment [facility] [address] [place] [id number] Carlota Jin MD [address] [place] [phone] 12/11/2024 6:45 EST Treatment [facility] [address] [place], [place] [phone] Carlota Jin MD [address] [place] [address] [address] [place] [phone] 12/13/2024 6:45 EST Treatment [facility] [place] [address] [place], [place] [id number] Carlota Jin MD [facility] [address] [place] [phone] 12/15/2024 6:45 EST Treatment [facility] [address] [place], [place] [phone] Carlota Jin MD [facility], [facility] [address] [place] [phone] 12/18/2024 6:45 EST Treatment [facility] [address] [place], [place] [phone] Carlota Jin MD [facility], [facility] [address] [place] [phone] 12/20/2024 6:45 EST [facility] [address] [place], [place] [phone] Carlota Jin MD [facility], [facility] [address] [place] [phone] 12/22/2024 6:45 EST Treatment [facility] [address] [place], [place] [phone] Carlota Jin MD [facility], [facility] [address] [place] [phone] 12/25/2024 6:45 EST Treatment [facility] [place] [address] [place], [place] [address] Carlota Jin MD 1 [facility], [facility] [address] [place] [phone] 12/27/2024 6:45 EST Treatment [facility] [place] [address] [place], [place] [id number] Carlota Jin MD 1 [facility], [facility] [address] [place] [phone] 12/29/2024 6:45 EST Treatment [facility] [place] [address] [place], [place] [id number] Carlota Jin MD 1 [facility], [facility] [address] [place] [phone] 01/01/2025 6:45 EDT Treatment [facility] [place] [address] [place], [place] [phone] Carlota Jin MD 1 [facility], [facility] [address] [place] [phone] 01/03/2025 6:45 EDT Treatment [facility] [place] [address] [place], [place] [phone] Carlota Jin MD 1 [facility], [facility] [address] [place] [phone] 01/05/2025 6:45 EDT Treatment [facility] [place] [address] [place], [place] [phone] Carlota Jin MD 1 [facility], [facility] [address] [place] [phone] 01/08/2025 6:45 EDT Treatment [facility] [place] [address] [place], [place] [address] Carlota Jin MD [facility], [facility] [address] [place] [phone] 01/10/2025 6:45 EDT Treatment [facility] [place] [address] [place], [place] [phone] Carlota Jin MD 1 [facility], [facility] [address] [place] [phone] 01/12/2025 6:45 EDT Treatment [facility] [place] [address] [place], [place] [phone] Carlota Jin MD 1 [facility], [facility] [address] [place] [phone] 01/15/2025 6:45 EDT Treatment [facility] [place] [address] [place] [address] Carlota Jin MD 1 [facility], [facility] [address] [place] [phone] 01/17/2025 6:45 EDT Treatment [facility] [place] [address] [place], [place] [address] Carlota Jin MD 1 [facility], [facility] [address] [place] [phone] 01/19/2025 6:45 EDT Treatment [facility] [place] [address] [place], [place] [phone] Carlota Jin MD 1 [facility], [facility] [address] [place] [phone] 01/22/2025 6:45 EDT Treatment [facility] [place] [address] [place], [place] [phone] Carlota Jin MD [address] [place] [address], [facility] [address] [place] [phone] 01/24/2025 6:45 EDT Treatment [facility] [place] [address] [place], [place] [phone] Carlota Jin MD [address] [place] [address], [address] [phone] 01/26/2025 6:45 EDT Treatment [facility] [place] [address] [place], [place] [phone] Carlota Jin MD [address] [place] [address], [facility] [address] [place] [phone] 01/29/2025 6:45 EDT Treatment [facility] [place] [address] [place], [place] [phone] Carlota Jin MD 1 [facility], [facility] [address] [place] [phone] 01/31/2025 6:45 EDT Treatment [facility] [place] [address] [place], [place] [phone] Carlota Jin MD 1 [facility], [facility] [address] [place] [phone] 02/02/2025 6:45 EDT Treatment [facility] [place] [address] [place], [place] [phone] Carlota Jin MD 1 [facility], [facility] [address] [place] [phone] 02/05/2025 6:45 EDT Treatment [facility] [place] [address] [place], [place] [phone] Carlota Jin MD 1 [facility], [facility] [address] [place] [phone] 02/07/2025 6:45 EDT Treatment [facility] [place] [address] [place] [address] Carlota Jin MD 1 [facility], [facility] [address] [place] [phone] 02/09/2025 6:45 EDT Treatment [facility] [place] [address] [place] [address] Carlota Jin MD 1 [facility], [facility] [address] [place] [phone] 02/12/2025 6:45 EDT Treatment [facility] [place] [address] [place], [place] [id number] Carlota Jin MD 1 [facility], [facility] [address] [place] [phone] 02/14/2025 6:45 EDT Treatment [facility] [place] [address] [place], [place] [phone] Carlota Jin MD 1 [facility], [facility] [address] [place] [phone] 02/16/2025 6:45 EDT Treatment [facility] [place] [address] [place], [place] [phone] Carlota Jin MD 1 [facility], [facility] [address] [place] [phone] 02/19/2025 6:45 EDT Treatment [facility] [address] [place], [place] [phone] Carlota Jin MD [address] [place] [address], [facility] [address] [place] [phone] 02/21/2025 6:45 EDT Treatment [facility] [place] [address] [place], [place] [phone] Carlota iJn MD 1 [facility], [facility] [address] [place] [phone] documented as of this encounter Procedures Procedure Name Priority Date/Time Associated Diagnosis Comments XR OUTSIDE IMAGES LEFT LOWER EXTREMITY STAT 12/17/2023 8:31 EST documented in this encounter Results * XR OUTSIDE IMAGES LEFT LOWER EXTREMITY (12/17/2023 8:31 EST) Narrative 12/20/2023 8:31 EST This is a non-reportable exam. us External Imaging IMG OTHER IMAGING ORDERABLES Fi nal Result documented in this encounter Visit Diagnoses Not on filedocumented in this encounter Care Teams Calender Feeder Relationship Specialty Start Date End Date Ken Greer MD [address] [place] [place] [address] PCP - General 07/07/23 documented as of this encounter
--- OUTSIDE RECORDS SUMMARY | 2024-12-05 12:12 | XMS_ITS | Encounter Summary ---
Author Organization [facility] Address [address] [place] [address] Care Team Providers Care Chief Internal Auditor Name Role Phone Mike Greer MD Primary Care Provider [phone] Reason for Referral * Consult (Routine/Next Available) - Receiving Office to Obtain Authorization Specialty Diagnoses / Procedures Referred By Nader gardnier Referred To Contact Endocrinology, Diabetes and Metabolism Diagnoses Diabetic foot infection ([facility]) Type 2 diabetes mellitus with chronic kidney disease on chronic dialysis, with long-term current use of insulin ([facility]) ESRD (end stage renal disease) ([facility]) Sourav Kilgore PA-C Phone: tel: fax: Referral ID Status Reason Start Date Expiration Date Visits Requested Visits Authorized [id number] Receiving Office to Obtain Authorization Specialty Services Required 12/24/2023 1 1 Question Answer Reason for Request: uncontrolled T2DM, ESRD, diabetic foot infection Expected Discharge Date (Inpatient Only): 12/24/[address] [facility] * Anticoagulation Enrollment (Routine/Next Available) - Receiving Office to Obtain Authorization Specialty Diagnoses / Procedures Referred By Nader gardiner Referred To Contact Diagnoses Atrial fibrillation with RVR ([facility]) Sourav Kilgore PA-C Phone: tel: fax: Referral ID Status Reason Start Date Expiration Date Visits Requested Visits Authorized [id number] Receiving Office to Obtain Authorization Anticoagulati on Management 12/24/2023 1 1 Question Answer Will [facility] Hematology be managing this patient's anticoagulation? No * Consult (Routine/Next Available) - Receiving Office to Obtain Authorization Specialty Diagnoses / Procedures Referred By Contac t Referred To Contact Orthopedic Surgery Diagnoses Cellulitis Diabetic foot infection ([facility]) Aarti Sanchez MD [address] [place] [id number] Phone: tel: fax: [facility] - [facility] [place] [address] Phone: tel: fax: Referral ID Status Reason Start Date Expiration Date Visits Requested Visits Authorized [id number] Receiving Office to Obtain Authorization Specialty Services Required 12/24/2023 1 1 Question Answer Reason for Request: calcaneal heel ulcer * Consult (Urgent) - New Request Specialty Diagnoses / Procedures Referred By Contac t Referred To Contact Diagnoses Diabetic foot infection ([facility]) Sourav Kilgore PA-C Phone: tel: fax: [facility] [place] [place] [facility] Phone: tel: fax: Referral ID Status Reason Start Date Expiration Date Visits Requested Visits Authorized [id number] New Request Specialty Services Required 12/24/2023 1 1 Question Answer I certify that this patient is under my care and that I, or another Medicare allowed practitioner (DO PALAK, LISA) working with me, had a cpxl-bh-hhsm encounter with this patient on this date: 12/24/2023 The discharge summary or progress note will provide further details that support the need for the home health services and the plan of care. Yes Enter the allowed practitioner (MD, DO, LISA) who will provide oversight of this patient's home heatlh care needs and plan of care Dr. Greer Some payers require a patient to be homebound to qualify for home health services. Homebound definition: Absences from home are infrequent or for relatively short duration (such as for medical appointments). Is patient HOMEBOUND? Yes The patient? s homebound status is related to the following diagnoses, illness or condition (describe): diabetic foot infection (right) The patient has a condition due to an illness or injury that restricts the ability to leave home except with: Assistance/Support device Assistive device Other Please specify: walker in home, wheelchair for appointments / HD Leaving home requires a considerable and taxing effort with mobility limited by the following (criteria 1): Impaired gait Leaving home requires a considerable and taxing effort with mobility limited by the following (criteria 2): Pain Skilled care requested: Nursing (includes assessment, treatment, disease management/education, wound care), Acute therapies (includes PT, FAMILY LAW [employer]GAL) Nursing skilled care requested: Disease management, Wound care Intermediate Referral - Disease Mgmt and Education about: Diabetes Intermediate Referral - Wound Care: (Please include care and frequency.) Post-surgical Frequency of wound care: 3x weekly [...] Other Please Specify: kerlix Adhesive Site 1: Other, JA bandage Please Specify: secure with ja bandage Therapies skilled care requested: Physical Therapy Physical therapy is needed for: Evaluation, Equipment Recommendations Reason for Visit * Reason Comments Wound Check Pt BIBEMS as transfe r from [facility] for L heel necrotizing fascitis. First occurred two weeks ago, Pt reports was debrided at the same and has worsened since. Transfer here for concern of sepsis. Pt reived vanco/cipro/gentamicin at OSH. He was treated at OSH for hyperkalemia. BG 492 around 1400 at OSH. Fentanyl 50 mcg given by EMS at 1415. * Auth/Cert (Routine) Specialty Diagnoses / Procedures Referred By Contac t Referred To Contact Diagnoses Hyperkalemia Cellulitis Primary hypertension Osteomyelitis ([facility]) ESRD (end stage renal disease) ([facility]) ESRD on hemodialysis ([facility]) Diabetic foot infection ([facility]) Anemia of chronic renal failure, stage 5 ([facility]) Type 2 diabetes mellitus with chronic kidney disease on chronic dialysis, with long-term current use of insulin ([facility]) Hyperkalemia [E87.5] Primary hypertension [I10] ESRD (end stage renal disease) ([facility]) [N18.6] Diabetic foot infection ([facility]) [E11.628, L08.9] Anemia of chronic renal failure, stage 5 ([facility]) [N18.5, D63.1] Type 2 diabetes mellitus with chronic kidney disease on chronic dialysis, with long-term current use of insulin ([facility]) [E11.22, N18.6, Z99.2, Z79.4] Wound - left foot Referral ID Status Reason Start Date Expiration Date Visits Re quested Visits Authorized [id number] 1 1 Encounter Details Date Type Department Care Team (Late st Contact Info) Description 12/19/2023 16:01 EST - 12/24/2023 13:25 [facility] Hospital Encounter [facility] General Medicine Unit [address] [place] [address] Gerson Young MD [address] [facility] [place] [phone] Isaac Rodriguez MD MPH [address] [phone] Sha Cabral MBBS [address] [phone] Melina Garza MD MPH [address] [phone] Richy Alfonso MD [address] [phone] Cellulitis (Primary Dx); Diabetic foot infection ([facility]) [E11.628, L08.9]; Type 2 diabetes mellitus with chronic kidney disease on chronic dialysis, with long-term current use of insulin ([facility]) [E11.22, N18.6, Z99.2, Z79.4]; ESRD (end stage renal disease) ([facility]) [N18.6]; Primary hypertension [I10]; Hyperkalemia [E87.5]; Anemia of chronic renal failure, stage 5 ([facility]) [N18.5, D63.1]; ESRD (end stage renal disease) ([facility]); ESRD on hemodialysis ([facility]); Atrial fibrillation with RVR ([facility]) Discharge Disposition: Home-Health Care Svc Social History Tobacco Use Types Packs/Day Years [...] Sign Reading Time Taken Comments Blood Pressure 144/65 12/24/2023 1130 EST Pulse 121 12/22/2023 1134 EST Temperature 35.8 ??C (96.5 ??F) 12/24/2023 1130 EST Respiratory Rate 18 12/24/2023 1130 EST Oxygen Saturation 95% 12/24/2023 0414 EST Inhaled Oxygen Concentration - - Weight 85.7 kg (188 lb 15 oz) 12/24/2023 0641 ES T Height 177.8 cm (5' 10) 12/20/2023 2202 EST Body Mass Index 27.11 12/20/2023 2202 EST documented in this encounter Functional Status * Are you deaf or do you have serious difficulty hearing? Answer Date of Assessment Author No 12/20/2023 14:00 Kaden Lazo RN * Are you blind or do you have serious difficulty seeing, even when wearing glasses? Answer Date of Assessment Author No 12/20/2023 14:00 Kaden Lazo RN * Do you have serious difficulty walking or climbing stairs? (5 years old or older) Answer Date of Assessment Author No 12/20/2023 14:00 Kaden Lazo RN * Do you have difficulty dressing or bathing? (5 years old or older) Answer Date of Assessment Author No 12/20/2023 14:00 Kaden Lazo RN * Because of a physical, mental, or emotional condition, do you have difficulty doing errands alone such as visiting a doctor's office or shopping? (15 years old or older) Answer Date of Assessment Author No 12/20/2023 14:00 Kaden Lazo RN documented as of this encounter Mental Status * Because of a physical, mental, or emotional condition, do you have serious difficulty concentrating, remembering, or making decisions? (5 years old or older) Answer Entry Date Author No 12/20/2023 14:00 Kaden Lazo RN documented in this encounter Discharge Summaries * Sourav Kilgore PA-C - 12/24/2023 1325 EST Images from the original note were not included. HOSPITAL MEDICINE DISCHARGE SUMMARY Primary Care Provider: Mike Greer MD Attending Physician: Richy Alfonso MD Admit Date: 12/20/23 Discharge Date: 12/24/23 Disposition (location): Home with home health Condition at Discharge: Improved Reason for Admission (chief complaint): Diabetic foot infection Principal/Final Diagnosis: Diabetic foot infection ([facility]) Additional Problems Managed in the Hospital: Active Hospital Problems Diagnosis Date Noted *Diabetic foot infection ([facility]) [E11.628, L08.9] 11/07/2023 Anemia of chronic renal failure, stage 5 ([facility]) [N18.5, D63.1] 12/20/2023 ESRD on hemodialysis ([facility]) 12/20/2023 Type 2 diabetes mellitus with chronic kidney disease on chronic dialysis, with long-term current use of insulin ([facility]) [E11.22, N18.6, Z99.2, Z79.4] 11/09/2023 ESRD (end stage renal disease) ([facility]) 11/11/2022 Primary hypertension [I10] 07/19/2016 Resolved Hospital Problems Diagnosis Date Noted Date Resolved Atrial fibrillation with RVR ([facility]) 12/21/2023 12/24/2023 Hyperkalemia [E87.5] 12/20/2023 12/24/2023 Cellulitis 12/20/2023 12/24/2023 Transition of care: [facility] Transition of Care report automatically routed to [...] - Orthopedics follow-up - Endocrine evaluation (requesting [facility]) - Home health PT and RN for [...] for left heeldiabetic wound who presents from [facility] with diabetic foot wound. ID, Vascular Surgery, [...] Units Date/Time Anaerobe Culture/Smear (inc. aerobes), Other [[id number]] (Abnormal) Collected: 12/22/23 0108 Lab Status: Preliminary result Specimen: Tissue from Heel Updated: 12/24/23 1442 Organism ID Moderate Enterococcus faecalis Few Streptococcus agalactiae (Group B) Few Corynebacterium striatum Rare Staphylococcus aureus One [place] Only Corynebacterium amycolatum Few Bacteroides fragilis group Few Finegoldia magna Smear Moderate Neutrophils Present Many Mixed gram positive and gram negative organisms Bacterial Culture, Blood [[id number]] Collected: 12/19/23 1749 Lab Status: In process Specimen: Blood, Venous Updated: 12/19/23 1813 Bacterial Culture, Blood [[id number]] Collected: 12/19/23 1749 Lab Status: In process Specimen: Blood, Venous Updated: 12/19/23 181 Please Note: Does not include future Hemodialysis appointments. Please use Chart Review-Encounters to see future scheduled Hemodialysis appointments. Upcoming Appointments Jan 24, 2024 14:15 Office Visit with Teja Whipple MD [facility] Vascular Surgery - [facility] (--) [address] [facility] [address] Follow-up appointments and procedures [facility] [facility]) I certify that this patient is under my care and that I, or another Medicare allowed practitioner (DO PALAK, LISA) working with me, had a vxip-wf-bgsn encounter with this patient on this date: [...] management/education, wound care) Acute therapies (includes PT, FAMILY LAW PAR[employer]GAL) Nursing skilled care requested: Disease management Wound care Intermediate Referral - Disease Mgmt and Education about: Diabetes Intermediate Referral - Wound Care: (Please include care [...] Please Specify: kerlix Adhesive Site 1: Other JA bandage Please Specify: secure with ja bandage Therapies skilled care requested: Physical Therapy Physical therapy is needed for: Evaluation Equipment Recommendations Authorizing Provider: Sourav Kilgore PA-C Amb Consult/Follow Up Anticoagulation (Other than Warfarin) Management Will [facility] Hematology be managing this patient's anticoagulation?: No Authorizing Provider: Sourav Kilgore PA-C Amb Consult/Follow Up Orthopedics - [facility] Reason for Request: calcaneal heel ulcer Authorizing Provider: Aarti Sanchez MD Amb Consult/Follow Up Endocrinology Reason for Request: uncontrolled T2DM, ESRD, diabetic foot infection Expected Discharge Date (Inpatient Only): 12/24/2023 Practice Site (External Referral Only): [facility] Authorizing Provider: Sourav Kilgore PA-C <30 minutes spent caring for this patient on day of discharge with greater than 50% dedicated todischarge planning and coordination of care. The patient was discussed with Dr. Alfonso who saw the patient prior to discharge. Sourav Kiglore PA-C 12/24/2023 15:03 Cosigned by Richy Alfonso MD at 12/28/2023 10:24 EST Associated attestation - Richy Alfonso MD - 12/28/2023 1024 EST Attending Attestation I interviewed and examined the patient. I have personally reviewed interval events, laboratory data, and imaging. I discussed the case with the PA and agree with the plan of care as documented in thedischarge summary. The patient is medically stable for discharge today. I reviewed the discharge instructions and follow up plan with the patient. I personally spent 30 reviewing the chart, evaluating and examining the patient, and counseling andpreparing the patient for discharge. Richy Alfonso MD 3.1.24 documented in this encounter Discharge Instructions * Discharge Instr - AVS First Page* Sourav Kilgore PA-C - 12/24/2023 13:06 EST Stop smoking as ongoing tobacco use will slow healing * Discharge Instr - Activity* Sourav Kilgore PA-C - 12/24/2023 13:25 EST Toe touch weight bearing LLE documented in this encounter Medications at Time of Discharge acetaminophen (TYLENOL) 325 mg tablet Take 2 Tablets by mouth every 6 hours. 0 12/24/2023 atorvastatin (LIPITOR) 40 mg tablet Take 1 Tablet by mouth daily. calcium carbonate (TUMS) 200 mg calcium (500 mg) tablet,chewable Take 1 Tablet by mouth 3 times daily with meals. carvediloL (COREG) 12.5 mg tablet Take 1 Tablet by mouth 2 times daily. dilTIAZem (CARDIZEM CD) 120 mg capsule Take 1 Capsule by mouth daily. 30 Capsule 12/24/2023 insulin pen needles 32G x 5/32 Brand: BD Ultra Fine Anny. ISS TID and levemir once daily 100 Each 11 12/24/2023 apixaban (ELIQUIS) 5 mg tablet Take 1 Tablet by mouth 2 times daily for 90 days. 180 Tablet 12/24/2023 DULoxetine (CYMBALTA) 20 mg delayed release capsule Take 1 Capsule by mouth 2 times daily. 12/03/2023 famotidine (PEPCID) 40 mg tablet Take 1 Tablet by mouth daily. 4 FLOVENT HFA 110 mcg/actuation inhaler Inhale 1 Puff as directed. 03/08/2023 4 insulin aspart U-100 (NOVOLOG FLEXPEN) 100 unit/mL (3 mL) injectable pen Units 66-140->0U,14 1-180->0U, 181-210 ->1U, 211-250->2U, 251-299->3U, > 299 -> 5U 4 mL 12/24/2023 4 LEVEMIR FLEXPEN 100 unit/mL (3 mL) injectable pen Inject 32 Units into the skin daily. 12/24/2023 4 oxyCODONE-acetamino phen (PERCOCET) 5-325 mg per tablet TAKE ONE TABLET BY MOUTH TWICE A DAY NEEDED FOR PAIN, MAXIMUM DAILY DOSE = 2 TABLETS 12/15/2023 4 polyethylene glycol 3350 (MIRALAX) 17 gram packet Take 17 g by mouth daily as needed for Constipation. 12/24/2023 4 pregabalin (LYRICA) 100 mg capsule Take 1 Capsule by mouth 2 times daily. Daily Max: 200 mg 60 Capsule 12/24/2023 4 SANTYL ointment 12/07/2023 4 sevelamer hydrochloride (RENAGEL) 800 mg tablet Take 2 Tablets by mouth 3 times daily with meals. 4 sildenafil citrate (VIAGRA) 100 mg tablet Take 1 Tablet by mouth as needed. 11/05/2023 4 documented as of this encounter Ordered Prescriptions Prescription Sig Dispense Quantity Refills Last Filled Start Date End Date insulin pen needles 32G x 5/32 Brand: BD Ultra Fine Anny. ISS TID and levemir once daily 100 Each 11 12/24/2023 dilTIAZem (CARDIZEM CD) 120 mg capsule Take 1 Capsule by mouth daily. 30 Capsule 12/24/2023 acetaminophen (TYLENOL) 325 mg tablet Take 2 Tablets by mouth every 6 hours. 0 12/24/2023 insulin aspart U-100 (NOVOLOG FLEXPEN) 100 unit/mL (3 mL) injectable pen Units 66-140->0U,14 1-180->0U, 181-210 ->1U, 211-250->2U, 251-299->3U, > 299 -> 5U 4 mL 12/24/2023 4 polyethylene glycol 3350 (MIRALAX) 17 gram packet Take 17 g by mouth daily as needed for Constipation. 12/24/2023 4 LEVEMIR FLEXPEN 100 unit/mL (3 mL) injectable pen Inject 32 Units into the skin daily. 12/24/2023 4 pregabalin (LYRICA) 100 mg capsule Take 1 Capsule by mouth 2 times daily. Daily Max: 200 mg 60 Capsule 12/24/2023 4 apixaban (ELIQUIS) 5 mg tablet Take 1 Tablet by mouth 2 times daily for 90 days. 180 Tablet 12/24/2023 4 apixaban (ELIQUIS) 5 mg tablet Take 1 Tablet by mouth 2 times daily for 90 days. 180 Tablet 12/23/2023 4 documented in this encounter Discharge Disposition Disposition Code Departure Means Destination Comment s Home-Health [facility] documented in this encounter Progress Notes * Elizabeth Wilde RN - 12/24/2023 3229 EST Nursing Discharge Note D: Patient noted with discharge orders to: Home. A: Prescriptions provided to patient. Reviewed discharge instructions and prescriptions with Patient and Family IV d/c'd. Belongings collected and sent home with patient. R: Patient and Family verbalized understanding of discharge instructions and denied further questions. ELIZABETH WILDE RN 12/24/2023 13:27 BP (!) 144/65 (BP Cuff Location: Right arm, BP Patient Position: Sitting) Pulse (!) 121 Temp 35.8 ??C (96.5 ??F) (Tympanic) Resp 18 Ht 177.8 cm (70) Wt 85.7 kg (188 lb 15 oz) SpO2 95% BMI 27.11 kg/m?? * Mirian Ruiz PA-C - 12/24/2023 8787 EST DIALYSIS PROVIDER TRANSFER NOTE See Discharge Summary and Discharge Med List in Epic Chief Complaint Upon Admit/Transfer: Diabetic food wound Hospitalization notable for: New diagnosis of atrial fibrillation; now on diltiazem and apixaban. Discharge Diagnosis: Same Follow Up Plan: Antibiotics with HD as noted below Changes Made to Dialysis Orders: Antibiotic orders added Therapy Plan Updated: Yes Follow-Up Tests/Treatments: He is to follow up with [facility] Antibiotics: Ertapenem and vancomycin through 01/31/24 Anticoagulants: Apixaban 5 mg BID Immunosuppressants: None Mirian Ruiz PA-C [facility] Nephrology Acute Dialysis [place] 4 * Ricardo Lange - 12/24/2023 1325 EST [facility] Note Provider requested CM complete referral on behalf for [facility] Endocrinology for pt. CM gathered required information and faxed to [facility] Endocrinology at [phone]. RICARDO LANGE [employer] Epic Chat Preferred 12/24/2023 15:37 * Melina Garza MD MPH - 12/24/2023 1325 EST Request for Documentation Clarification [facility] Gerson Bruner ; VISIT [id number]; ACCT [id number] Query Response Sent: 12/27/23 12:13 EST From: MELINA GARZA MD MPH Query question: Based on the clinical information below, please specify the appropriate diagnosis below Provider response: Hyponatremia Original Query Sent: 12/21/23 13:20 EST From: MIKE NEAL To: MELINA GARZA MD MPH Based on the clinical information below, please specify the appropriate diagnosis below * Hyponatremia * Other explanation of clinical findings Clinical Information * Patient Summary: Patient admitted with diabetic foot ulcer. Also noted are below normal sodium levels. If known please provide diagnsostic terminology to represent these abnormal sodium levels. * Lab Values: * Sodium level: Sodium 132 12/19/2023 17:49 Sodium 132 12/20/2023 05:49 Sodium 132 12/21/2023 09:42 * Glynn Davidson DPM - 12/24/2023 1325 EST Request for Documentation Clarification [facility] Gerson Bruner ; VISIT [id number]; ACCT [id number] Query Response Sent: 12/23/23 19:06 EST From: CHELLE ODELL MD Query question: Please further clarify the nature of the debridement procedure performed on 12/22/23: Provider response: Excisional Debridement Query question: Please identify instrumentation used: Provider response: Scalpel Query question: Please describe the technique used: Provider response: Cutting Query question: Please identify nature of tissue removed: Provider response: Necrotic Query question: Please identify depth of debridement: Provider response: Down to and including subcutaneous tissue and fascia Original Query Sent: 12/23/23 11:10 EST From: MIKE NEAL To: CHELLE ODELL MD, GLYNN DAVIDSON DPM Please further clarify the nature of the debridement procedure performed on 12/22/23: * Excisional Debridement * Non-excisional Debridement * Other explanation of clinical findings Please identify instrumentation used: * Scalpel * Scissors * Curette * Laser * Ultrasonic assist * Versa jet * Other explanation of clinical findings Please describe the technique used: * Cutting * Scrubbing * Brushing * Washing/irrigating * Trimming/scraping * Enzymatic * Chemical * Other explanation of clinical findings Please identify nature of tissue removed: * Devitalized * Necrotic * Slough * Other explanation of clinical findings Please identify depth of debridement: * Necrotic skin * Down to and including subcutaneous tissue and fascia * Down to and including muscle * Down to and including bone * Other explanation of clinical findings Clinical Information * Patient Summary: patiient admitted with foot wound likely r/t infection. Also noted is debridement of wound. Further specificity of debridement is need. Please provide all known information relatedto type, instruments and technique of debridement and depth. * Please refer to OP note dated: Procedures (no attending/no co by Cehlle Odell at 12/22/2023 01:30 Orthopedic Foot Debridement Obtained verbal consent. Risks, benefits, and alternatives discussed. Patient elected to proceed with debridement of left heel foot wound and eschar. Patient was prepped and draped in standard sterile fashion. Dissection was carried down to bleeding tissue. There was an area of the medial calcaneus that had overlying soft tissue and fascia but bone was not encountered. No lili or expressible purulence encountered. Wound was irrigated with 1L of sterile normal saline. Wound was dressed with wet Kerlix, dry 4 x 4, dry Kerlix, Ja bandage. Patient tolerated procedure well. EBL minimal. Postdebridement picture below. Medial Heel periosteum biopsy taken and sent for culture. CHELLE ODELL MD PGY-1 Orthopaedic Surgery 12/22/2023 1:27 Pager #[phone], or EPIC Chat * Domingo Jarrett RN - 12/24/2023 7621 EST Dialysis Program Nursing Transfer Note Fellow responsible: Mirian Ruiz Diagnosis: diabetic foot wound History: Neuropathy, ESRD (MWF HD), HTN, HLD, PAD, TIA, tobacco use disorder and recent admission for left heel diabetic wound Long-term Access Plan: L AVF URR Completed prior to transfer? no HD Orders Updated: (ETW, Heparin etc) none Antibiotics ordered: Vancomycin and Ertapenem Follow-up Plan to Care: Pt to continue dialysis Treatment on [place] dialysis [facility] Report called to: Melissa JARRETT RN 12/24/2023 12:58 * Melvin Shelby MD - 12/24/2023 [id number] EST ID Follow-Up Reason: Foot infection Seen in dialysis EXAM: Chronically ill-appearing but no distress Hard of hearing Afebrile Blood pressure 138/69 Left AV fistula Bilateral foot ulcers. Left necrotic heel has been debrided Antibiotics: Ertapenem 500, day 5 Recent antibiotics have included Vancomycin Metronidazole Ceftriaxone Gentamicin Augmentin Cipro DATA: White blood cell count 14 CRP 187 MRI November 07: 1. Superficial ulceration over the medial aspect of the calcaneus, moderate diffuseskin thickening throughout the ankle and imaged foot, and subcutaneous edema, compatible with cellulitis. 2. No organized or drainable collection or abscess formation seen. 3. No MR imaging evidence of osteomyelitis. [place] wound culture from October 31 with group B strep, Klebsiella resistant to ampicillin and intermediate to cefazolin, and MSSA. Tissue culture November 08 with Klebsiella resistant to ampicillin and cefazolin, and MSSA Tissue culture December 22 with polys, mixed organisms, growing group B strep and Enterococcus faecalis Left foot plain film now with no osteo Chest x-ray now reviewed with patchy right-sided opacity Blood cultures no growth CT scan December 18 without osteo IMPRESSION: Necrotic left heel ulcer, debrided Radiology and debridement suggest no significant osteomyelitis Microbiology has included Enterococcus, MSSA, group B strep, and Klebsiella Leukocytosis, high CRP Abnormal chest x-ray, recent COVID, no comparison, asymptomatic SUGGESTIONS: Ertapenem 500 IV every 24 in the evening while here Follow-up with Winona Denice Continue ertapenem 1 g IV after dialysis 3 times a week as outpatient Add vancomycin with dialysis Treat 6 weeks with vanco/erta from debridement December 22 - January 31 Weekly CBC, CRP Stop smoking Discussed with pharmacist I spent a total of 35 minutes on the date of this encounter meeting with the patient and reviewing documentation/coordinating care as described in the above note. Heron * Ricardo Lange - 12/24/2023 0868 EST Discharge Note CASE MANAGEMENT DISCHARGE NOTE DISCHARGE DATE/TIME: 12/24/23 afternoon DESTINATION: Home (If discharging to [facility]) COVID swab ordered and completed: TRANSPORTATION: Spouse ACCEPTING MD AND NUMBER: NA RN REPORT/UNIT: NA TRAFFIC MANAGER/CHARGE/MD NOTIFIED (Y/N): Y FORMS: (Acute to acute, COLST, MOLST, SCARLETT, Screen, PASRR, Ambulance): NA IM SIGNED (Y/NA): Y HOME HEALTH: [facility] for SN DME: pt has needed DME PHARMACY/PRESCRIPTIONS: [facility] ([facility]) MEDS TO BEDS UTILIZED : YES Patient and/or family who participated in discharge plan: Patient and patient spouse Destination Confirmation: This Continuous Improvement Facilitator has personally and directly confirmed with patient's receiving support person thefollowing discharge plan and destination details. Support Person's Name: Contact Information: Destination Address & Description: Anticipated Discharge date/time: Transportation modality: The aforementioned support person acknowledged an understanding to the information shared with thisplan. Pt has decision making capacity. OTHER: Pt will return to M// schedule for HD in [place]. Pt will receive IV abx while at HD for the needed amount of time. Ricardo Lange [employer] Epic Chat preferred 12/24/2023 12:43 * Michelle Rojo, RN - 12/23/2023 1526 EST Data: Assumed care at 0700. Patient is AOx3, continent x2 and walks self to the bathroom. On RA, ontelemetry, IV access in the RFA 22g. HD AV access in L arm. Wound to L heel, diabetic foot ulcer. Action: Meds given according to MAR, hourly rounding and safety checks completed. Wound care completed. Assisted with shaving, morning hygiene and shower this AM. Education provided regarding importance of pre-meal finger sticks and appropriate food choices. at bedside for most of the shift. Response: patient resting in bed, call mitchell within reach, able to make needs known. MICHELLE ROJO RN 12/23/2023 15:26 * Agustin Gonzalez, PT - 12/23/2023 1259 EST [facility] Rehabilitation Therapy [facility] Physical Therapy Initial Evaluation/Discontinue Note Date of Service: 12/23/2023 Reason for Referral: Evaluate and treat Precautions: Activity as tolerated and toe-touch weightbearing left lower extremity SUBJECTIVE: Yes I would like to get up. Patient's present for entire PT session. Pain: No pain reported during the interview. OBJECTIVE: H&P note reviewed. Reason for Admission: 58 y.o. male admitted with a chief complaint of left foot wound and now with a principal diagnosis of diabetic foot wound . 58 y.o. 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 Course complicated by new dx of AF RVR. Patient remains afebrile and HD stable. Now status post on 12/22/2023: Orthopedic left foot/heel wound debridement See orthopedic note for details Patient Profile: Patient is a 58 y.o. male admitted on 12/19/2023 secondary to Hyperkalemia [E87.5] Cellulitis [L03.90] Primary hypertension [I10] Osteomyelitis ([facility]) [M86.9] ESRD (end stage renal disease) ([facility]) [N18.6] ESRD on hemodialysis ([facility]) [N18.6, Z99.2] Diabetic foot infection ([facility]) [E11.628, L08.9] Anemia of chronic renal failure, stage 5 ([facility]) [N18.5, D63.1] Type 2 diabetes mellitus with chronic kidney disease on chronic dialysis, with long-term current use of insulin ([facility]) [E11.22, N18.6, Z99.2, Z79.4] The patient lives at [address] [place] [phone] Home environment Lives: With his Caregiver Support: 24-hour assist Equipment Available: Rolling walker and Wheelchair Home Environment: house Home Layout: One story. 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 associated with type 2diabetes mellitus ([facility]) ESRD (end stage renal disease) ([facility]) Primary hypertension [I10] Hearing loss Herniation of lumbar intervertebral disc with radiculopathy Hyperlipidemia Proteinuria Right sided numbness Secondary hyperparathyroidism ([facility]) TIA (transient ischemic attack) Type II or unspecified type diabetes mellitus with neurological manifestations, uncontrolled(250.62) Encounter for immunization Hypoalbuminemia Anemia of chronic renal failure Abnormal albumin Cellulitis and abscess of foot, except toes Encounter for therapeutic drug monitoring Diabetic foot infection ([facility]) [E11.628, L08.9] COVID Type 2 diabetes mellitus with chronic kidney disease on chronic dialysis, with long-term current use of insulin ([facility]) [E11.22, N18.6, Z99.2, Z79.4] Osteomyelitis ([facility]) Hyperkalemia [E87.5] Cellulitis Anemia of chronic renal failure, stage 5 ([facility]) [N18.5, D63.1] ESRD on hemodialysis ([facility]) Atrial fibrillation with RVR ([facility]) Past: Past Medical History: Diagnosis Date Asthma Mild Diabetes mellitus ([facility]) DM2 Hyperlipidemia Hypertension Stage 3 chronic kidney disease ([facility]) Unsteady gait when walking Past Surgical History: Procedure Laterality Date APPENDECTOMY BACK SURGERY CHOLECYSTECTOMY DIALYSIS FISTULA CREATION Left SHOULDER SURGERY Medications: Medications reviewed Arousal, Attention, and Cognition: Orientation: Oriented to person, place Cardiopulmonary: Vital Signs: HR 75 BP 165/70 SpO2 96% on room air Integumentary/Anthropometric Characteristics: Palpation/Observation: Skin: Left heel debridement, see orthopedic note on 12/22/2023 Posture: No problem noted Range of Motion and Joint Integrity: Active Range of Motion: Within functional limits except as noted Upper Quarter: Left Upper Extremity: Right Upper Extremity: Cervical Spine: Lower Quarter: Left Lower Extremity: Neutral ankle Right Lower Extremity: Lumbar Spine: N/E Muscle Performance: Strength: Testing completed in: sitting Gross muscle testing performed. All functionally greater than 3+/5 except noted below: Upper Quarter: Left Upper Extremity: Right Upper Extremity: Cervical Spine: N/E formally evaluated, functionally at least 3/5 Lower Quarter: Left Lower Extremity: Ankle not tested Right Lower Extremity: Lumbar Spine: N/E Sensation, Reflexes, and Nerve Integrity: Light Touch Sensation: Upper Quarter: Not evaluated Lower Quarter: Not evaluated Neuromotor Function/Development: No problems noted Balance, Locomotion, and Gait: Balance: No loss of balance observed throughout physical therapy session Sitting: Patient can tolerate static sitting unsupported independently. Standing: Patient can tolerate static standing/pivot transfers bed to wheelchair independently while maintaining toe-touch weightbearing left lower extremity. Mobility: During all activities performed this patient was provided cues and education. These were provided to give movement techniques to decrease post procedure discomfort, optimize patient safety, adhere topost procedure precautions and utilize pacing recommendations. With training, mobility performance as follows: Rolling: independent Supine to Sit: independent Sit to Supine: independent Transfers: independent with no device from bed to wheelchair back to bed and back to wheelchair with standby supervision for safety only while maintaining toe-touch weightbearing left lower extremity. Gait: Not evaluated Patient independent with wheelchair mobility once positioned in wheelchair. Self-Care, Home Management, Work, and Leisure: Not Evaluated Informed Consent: The patient consented to the physical therapy evaluation. The patient agrees to and understands the physical therapy treatment plan and goals. Interventions Completed Today: Physical Therapy today at: 11:00 Total treatment time: 15 minutes. Timed code treatment minutes: 0 Intervention included: No interventions completed today Patient/Family Education: Topic: Activity pacing/Energy conservation Discharge planning Precautions/protocol: Toe-touch weightbearing left lower extremity Role of therapy Safety Transfers Learner: patient and family Method: verbal and demonstration Barriers to Learning: none noted Outcome: verbalized understanding and returned demonstration Team Communication: Discussed current level of mobility and recommendations with nursing for assistance with mobility and positioning outside of PT. Recommend: Bed to wheelchair with standby supervision multiple times a day while maintaining toe-touch weightbearing left lower extremity. Home with family whenever medically ready. ASSESSMENT: Physical Therapy Diagnosis: This patient was admitted with acute on chronic left foot wound now with principal diagnosis of diabetic foot wound status post orthopedic left heel debridement.. Patient now presents with a physical therapy diagnosis of: impaired functional mobility, impaired functional safety/endurance. Limited by toe-touch weightbearing left lower extremity. These are impacted by: acute medical status/procedures, co-morbidities, and decreased activity levels throughout hospital stay. Physical Therapy Prognosis: Physical therapy was medically necessary today to: address these body structure/function impairments, activity limitations, and participation restrictions, establish and progress mobility/exercise and provide recommendations for staff and safe discharge planning. Based on patient's functional performance level today, prior level of function, good motivation, good home set up and family support, home is recommended when medically ready for hospital discharge. Goals below were addressed and met with treatment provided today. Additional skilled PT in the acutecare setting is not needed at this, but they are recommended to continue to mobilize with nursing st aff to prevent complications related to immobility. Follow up PT recommendations at time of discharge: Home health physical therapy Anticipate home physical therapy follow-up when patient allowed to weight-bear enough to allow safeambulation with a rolling walker. Short-Term Goals: Not applicable Long-Term Goals: 1 day - MET Patient will be at independent level of assist with all bed mobility demonstrating proper techniqueand sequencing Patient will be at supervision level of assist with all transfers demonstrating proper technique and sequencing with or without appropriate assistive device as needed while maintaining toe-touch weightbearing status left lower extremity All of the above mobility goals will be performed with stable vital signs and with SpO2 >= 92% on least amount of FiO2. PLAN: Discontinue acute care PT. Continue mobility with nursing assistance while hospitalized. Recommended Discharge Destination: Home with family Recommended Discharge Services: Home health physical therapy and home wound care Recommended Equipment Needs: Patient has all necessary equipment Other recommendations: No other consults recommended at this time Pager: [phone] AGUSTIN GONZALEZ, PT 12/23/2023 13:00 * Agustin Gonzalez, PT - 12/23/2023 125 EST [facility] Rehabilitation Therapy Acute Therapy [facility] Physical Therapy Contact Note Date of Service: 12/23/2023 PT evaluation and intervention completed. Full note to follow. Patient easily able to transfer bed <> WC while TTWB LLE Recommend: OOB to wheelchair TID with nursing or family assist . Home when medically cleared with He has a WC and walker NO need for OT HOME PT to see AGUSTIN GONZALEZ PT 12/23/2023 12:58 [id number] * Melvin Shelby MD - 12/23/2023 1242 EST ID Follow-Up Reason: Foot infection Very unhappy and scared that his foot will not heal EXAM: Chronically ill-appearing but no distress Hard of hearing Afebrile Blood pressure 165/70 Left AV fistula Bilateral foot ulcers. Left i necrotic heel has been debrided Antibiotics: Ertapenem 500, day 4 Recent antibiotics have included Vancomycin Metronidazole Ceftriaxone Gentamicin Augmentin Cipro DATA: White blood cell count 18 CRP 187 MRI November 07: 1. Superficial ulceration over the medial aspect of the calcaneus, moderate diffuseskin thickening throughout the ankle and imaged foot, and subcutaneous edema, compatible with cellulitis. 2. No organized or drainable collection or abscess formation seen. 3. No MR imaging evidence of osteomyelitis. [facility] wound culture from October 31 with group B strep, Klebsiella resistant to ampicillin and intermediate to cefazolin, and MSSA. I was unable to make telephone contact with [facility] Tissue culture November 08 with Klebsiella resistant to ampicillin and cefazolin, and MSSA Tissue culture December 22 with polys, mixed organisms, pending Left foot plain film now with no osteo Chest x-ray now reviewed with patchy right-sided opacity Blood cultures no growth CT scan December 18 without osteo IMPRESSION: Necrotic left heel ulcer, debrided Radiology and debridement suggest no significant osteomyelitis Microbiology has included MSSA, group B strep, and Klebsiella Leukocytosis, high CRP Abnormal chest x-ray, recent COVID, no comparison, asymptomatic SUGGESTIONS: Ertapenem 500 IV every 24 in the evening while here Follow-up with Paulo Galdamez Consider ertapenem 1 g IV after dialysis 3 times a week as an outpatient to complete 6 weeks Await tissue culture from December 22 Stop smoking I spent a total of 40 minutes on the date of this encounter meeting with the patient and reviewing documentation/coordinating care as described in the above note. Heron * Kristel Baron OT - 12/23/2023 1134 EST [facility] Therapy Acute Therapy [facility] Occupational Therapy Contact Note Date of Service: 12/23/2023 OT orders and chart reviewed. Per discussion with PTAgustin, who evaluated Xander, acute OT services are not indicated at this time. Will sign off. Please re- consult if condition changes. KRISTEL BARON, OT, 12/23/2023, 11:34 * Ricardo Lange - 12/23/2023 1049 EST CMSW Progress Note CM coordinated with HD CM Kiel Powers for pt to d/c tomorrow afternoon after HD. Pt will return to /W/F schedule for HD in [place]. Pt will receive IV abx while at HD for the needed amount of time. CM updated pt of this, pt noted his spouse would likely transport him home. Pt likely to d/c tomorrow afternoon after HD. CM spoke with Soham ARCOS who noted they would resume services for SN upon d/c. RICARDO LANGE [employer] Epic Chat Preferred 12/23/2023 10:50 * Sourav Kilgore PA-C - 12/23/2023 0843 EST Medicine Progress Note Service Date: 12/23/2023 Admit Date: 12/19/2023 16:01 Reason for Admission: 58 y.o. male admitted with a chief complaint of left foot wound and now with a principal diagnosis of diabetic foot wound 24 Hour Events: poor rate control overnight after which patient removed tele. S/p debridement. Subjective/Objective Subjective Patient amazed with how much of his heel was removed, thinks he should have just had his foot takenoff as he believes it will never heal. Review of Systems A ten point review of systems was attempted however patient declined to participate and perseverated on his debrided heel. Objective Vital Signs Temp: [36.1 ??C (97 ??F)-36.8 ??C (98.2 ??F)] , Heart Rate: [75 BPM-88 BPM] , Resp: [16-18] , BP: (137-172)/(53-81) , SpO2: [91 %-96 %] Physical Exam General appearance: alert, mildly agitated Eyes: conjunctivae clear Throat/Mouth: MMM Lungs: no audible wheezes Neurologic: Grossly normal Extremities: extremities warm, atraumatic, no cyanosis, left heel wound appreciated with scant necrotic tissue and no purulent drainage. Trace pedal edema. Psych: Alert to person, place, situation Is PICC or central line present? No, PICC/Central line not present. Medications Reviewed: Changes notable for stopped metoprolol and started dilt Labs Reviewed: CBC: Recent Labs 12/21/23 0942 12/22/23 0731 WBC 18.21* 18.19* HGB 8.0* 8.2* HCT 24.7* 24.9* MCV 92 91 PLT 340 366 BMP: Recent Labs 12/21/23 0942 12/22/23 0731 NA 132* 131* K 5.5* 5.7* CL 92* 95* CO2 26 22 MG 2.0 2.5 PHOS 4.5 6.3* Coags: No results for input(s): PROTIME, INR, PTT in the last 72 hours. Bcx 12/19 - NGTD Imaging Reviewed: 12/21/23 TTE Summary Left Ventricle: The left ventricular cavity was normal in size. Left ventricular systolic function was low normal with an ejection fraction of 50-55%. Left ventricular wall motion was normal; there were no regional wall motion abnormalities. Right Ventricle: The right ventricular cavity was normal in size. Right ventricular systolic function was normal. L foot plain film: IMPRESSION FINDINGS / IMPRESSION: * No acute fracture or traumatic malalignment. * Subcutaneous air and edema in the soft tissues inferior to the calcaneus with adjacent ulcerationof the skin appreciated to better extent on same-day CT compatible with cellulitis. No evidence of osseous erosion to indicate osteomyelitis. * Atherosclerosis. * Scattered degenerative changes through the foot. Assessment/Plan Assessment 58 y.o. 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 Course complicated by new dx of AF RVR. Patient remains afebrile and HD stable. Suitable for discharge tomorrow Plan #Left heel diabetic foot wound s/p debridement -ID, Ortho and Vascular consulted, appreciate recs -Ertapenem 500mg IV daily (could potentially DC on 1g IV after HD three times per week for 6 week course) -dilaudid 1 mg Q4 hr PRN w bowel regimen -acetaminophen 650mg Q6 -Wound care consult, appreciate recs -Non weight bearing LLE per Ortho recs -f/u with [facility] on DC -f/u Bcx #AF RVR: new dx. Presumably provoked by infection. TSH wnl. - CHADS2-Vasc2 score 5 (hx of TIA per , HTN, DM, PAD). In agreement with apixaban depending on cost. -metoprolol increased to 25 mg Q6 with minimal effect on HR so was discontinued -transitioned to diltiazem 120 mg daily yesterday, rates now in 80s -Patient did not want to make decision about anticoagulation at this time. -TTE reassuring -will benefit from Cards referral on DC #ESRD on HD w Hyperkalemia: MWF dialysis as outpatient. -renal diet w 1.5L fluid restriction sevelamer, tums -Nephro consulted and managing HD plan. -received lokelma this stay. May require further therapy depending on trends. #Poorly controlled T2DM c/b peripheral neuropathy: A1c 11.6 in Oct. -continue glargine to 32u daily -SSI -DM educator consult -reduce [employer] [place] pregabalin dose from 200mg BID to 100mg given ESRD (increases risk of AMS, falls and COPD exacerbation). Recommend continuing to down titrate dose this hospitalization to lowest possible tolerated dose or off completely if tolerated. -referral to [facility] Endocrinology on DC. #Anemia of chronic disease No evidence of bleeding, Daily CBC #HTN/HLD -Continue atorvastatin 40 daily -Hold amlodipine indefinitely. Increase coreg to 12.5mg twice daily ([employer] [place] dose) #Tobacco use disorder -nicotine replacement, encourage cessation VTE Prophylaxis Pharmacologic Prophylaxis: Heparin 5000 units SQ Bid Discharge Plan Home with home health Consults Infectious Disease, Vascular, Ortho *I spent a total of 35 minutes at the patient's bedside and in direct floor time, solely dedicated to this patient, on this date of service. Attending Richy Alfonso MD was on site and available for consultation. Consultation was not necessary. Portions of this document may have been prepared with speech recognition software or keyboard data capture specialist techniques. Minor irregularities or keyboarding misprints may be present. Sourav Kilgore PA-C 12/23/2023 * Agustin Gonzalez, PT - 12/22/2023 1255 EST [facility] Therapy Acute Therapy [facility] Physical Therapy Contact Note Date of Service: 12/22/2023 Patient at dialysis and s/p Left heel debridement. PT will evaluate in am as discussed with PA. Given he is now TTWB LLE, he should be able to manage Bed to WC to toilet transfers as prior and return home with his as he left from prior admission. AGUSTIN GONZALEZ, PT 12/22/2023 12:55 * Ricardo Lange - 12/22/2023 1227 EST Case Management Progress Note Level of Care: Acute Discharge plan/estimated date: Home pending PT/OT recommendations, TBD LTC Medicaid Status: None Barriers to d/c: Acute level of care Support Network: [place] [phone] Next Steps: Per PPR, pt receiving dialysis and needs to be seen by PT/OT for recommendations, pt isnow off weight barring restrictions and able to put weight on toes. Nephrology consulting. CM to continue to follow and support d/c planning and coordination of care. Ricardo Lange [employer] Epic Chat preferred 12/22/2023 12:30 * Sourav Kilgore PA-C - 12/22/2023 7732 EST Medicine Progress Note Service Date: 12/22/2023 Admit Date: 12/19/2023 16:01 Reason for Admission: 58 y.o. male admitted with a chief complaint of left foot wound and now with a principal diagnosis of diabetic foot wound 24 Hour Events: poor rate control overnight after which patient removed tele. S/p debridement. Subjective/Objective Subjective Patient feeling okay. Not much appetite. Wants to have his heart monitor removed. Review of Systems A ten point review of systems was performed and was negative except for pertinent positives noted in the HPI Objective Vital Signs Temp: [36.2 ??C (97.2 ??F)-36.7 ??C (98.1 ??F)] , Heart Rate: [95 BPM-143 BPM] , Resp: [18] , BP: (115-157)/(73-98) , SpO2: [92 %-95 %] Physical Exam General appearance: alert, cooperative, no distress Eyes: conjunctivae clear Throat/Mouth: MMM Lungs: no audible wheezes Heart: irreg irreg Abdomen: soft, non-tender; bowel sounds normal; no masses, no organomegaly Neurologic: Grossly normal Extremities: extremities warm, atraumatic, no cyanosis,left ankle and foot with dressing in place Skin: Skin color, temperature, turgor normal. No rashes. Is PICC or central line present? No, PICC/Central line not present. Medications Reviewed: Changes notable for stopped metoprolol and started dilt Labs Reviewed: CBC: Recent Labs 12/19/23 1749 12/20/23 0549 12/21/23 0942 WBC 20.14* 19.02* 18.21* HGB 8.3* 7.9* 8.0* HCT 26.2* 24.2* 24.7* MCV 94 93 92 PLT 347 319 340 BMP: Recent Labs 12/19/23 1749 12/20/23 0549 12/21/23 0942 NA 132* 132* 132* K 5.5* 6.0* 5.5* CL 92* 92* 92* CO2 29 22 26 BUN 47* 54* -- CREATININE 7.85* 8.46* -- MG -- 2.1 2.0 PHOS -- 6.3* 4.5 CALCIUM 9.4 8.9 -- SERGLU 272* 389* -- Coags: No results for input(s): PROTIME, INR, PTT in the last 72 hours. Bcx 12/19 - NGTD Imaging Reviewed: 12/21/23 TTE Summary Left Ventricle: The left ventricular cavity was normal in size. Left ventricular systolic function was low normal with an ejection fraction of 50-55%. Left ventricular wall motion was normal; there were no regional wall motion abnormalities. Right Ventricle: The right ventricular cavity was normal in size. Right ventricular systolic function was normal. L foot plain film: IMPRESSION FINDINGS / IMPRESSION: * No acute fracture or traumatic malalignment. * Subcutaneous air and edema in the soft tissues inferior to the calcaneus with adjacent ulcerationof the skin appreciated to better extent on same-day CT compatible with cellulitis. No evidence of osseous erosion to indicate osteomyelitis. * Atherosclerosis. * Scattered degenerative changes through the foot. Assessment/Plan Assessment 58 y.o. 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 Course complicated by new dx of AF RVR. Patient remains afebrile and HD stable. Plan #Left heel diabetic foot wound: may need debridement. -ID, Ortho and Vascular consulted, appreciate recs -Ertapenem 500mg IV daily (could potentially DC on 1g IV after HD three times per week for 6 week course) -dilaudid 1 mg Q4 hr PRN w bowel regimen -acetaminophen 650mg Q6 -Wound care consult, appreciate recs -Non weight bearing LLE per Ortho recs -f/u with [facility] on DC -f/u Bcx #AF RVR: new dx. Presumably provoked by infection. TSH wnl. CHADS2-Vasc2 score 5 (hx of TIA per , HTN, DM, PAD). -tele -metoprolol increased to 25 mg Q6 with minimal effect on HR so was discontinued -transitioned to diltiazem 120 mg daily today, rates now in 80s -Patient did not want to make decision about anticoagulation at this time. -TTE reassuring -will benefit from Cards referral on DC #ESRD on HD w Hyperkalemia: F dialysis as outpatient. -renal diet w 1.5L fluid restriction sevelamer, tums -Nephro consulted and managing HD plan. -received lokelma this stay. May require further therapy depending on trends. #Poorly controlled T2DM c/b peripheral neuropathy: A1c 11.6 in Oct. -continue glargine to 32u daily -SSI -DM educator consult -reduce BRICK [employer] [place] pregabalin dose from 200mg BID to 100mg given ESRD (increases risk of AMS, falls and COPD exacerbation). Recommend continuing to down titrate dose this hospitalization to lowest possible tolerated dose or off completely if tolerated. -referral to [facility] Endocrinology on DC. #Anemia of chronic disease No evidence of bleeding, Daily CBC #HTN/HLD -Continue atorvastatin 40 daily -Hold amlodipine 10mg daily. Resume coreg at 6.25 mg twice daily (BRICK [employer] [place] 12.5mg twice daily) #Tobacco use disorder -nicotine replacement, encourage cessation VTE Prophylaxis Pharmacologic Prophylaxis: Heparin 5000 units SQ Bid Discharge Plan Pending clinical improvement, likely home vs AJ. Will clarify w Ortho if he can be toe touch weight bearing as this would facilitate dc home ultimately. Consults Infectious Disease, Vascular, Ortho Above note was adapted from progress note written by Dr. Garza on 12/21/23. *I spent a total of 35 minutes at the patient's bedside and in direct floor time, solely dedicated to this patient, on this date of service. Attending Richy Alfonso MD was on site and available for consultation. Consultation was not necessary. Portions of this document may have been prepared with speech recognition software or keyboard data capture specialist techniques. Minor irregularities or keyboarding misprints may be present. Sourav Kilgore PA-C 12/22/2023 * Aarti Sanchez MD - 12/22/2023 0731 EST Orthopaedic Progress Note Pt Name: Gerson Bruner Service: Foot and Ankle Problem: Left diabetic heel ulcer Procedure: Bedside debridement 12/22/23 S- No notable pain at heel or systemic symptoms. Feels debridement went well overnight O: Blood pressure (!) 143/74, pulse 73, temperature 36.4 ??C (97.5 ??F), temperature source Tympanic, resp. rate 18, height 177.8 cm (70), weight 85.7 kg (189 lb), SpO2 95 %. Gen: NAD Pulm: Non-labored breathing Focused MSK: LLE: Dressing C/D/I, underlying wound debrided down to calcaneus at center of wound. No areas of fluctuance or purulence. Surrounding tissue healthy appearing/bleeding Globally diminished light touch sensation Baseline Diminished voluntary motor function Nonpalpable DP pulse Labs: WBC/Hgb/Hct/Plts: 18.21/8.0/24.7/340 (12/21 941) Na/K/Cl/CO2: 132/5.5/92/26 (12/21 941) BUN/Cr/glu/ALT/AST/amyl/lip: 54/8.46/389/--/--/--/-- (12/20 548) A: Gerson Bruner is a 58 y.o. male with pmh ESRD (MWF dialysis), DMII w/peripheral neuropathy, HTN, HLD, PAD for whom orthopedic surgery/podiaty has been consulted for left heel ulcer. No intervenable vascular disease with adequate healing capacity per recent ABIs per vascular surgery service. Now s/p bedside debridement of heel ulcer with healthy-appearing margins. Plan for ongoing local wound care with dressing changes as well as antibiotics per primary service. P: WB - toe-touch weightbearing left lower extremity Abx - per primary Wet-to dry dressing changes BID Appreciate remainder of care per primary service AARTI SANCHEZ MD 12/22/23 7:36 * Kristel Baron OT - 12/22/2023 0706 EST [facility] Therapy Acute Therapy [facility] Occupational Therapy Contact Note Date of Service: 12/22/2023 Pt at dialysis this AM. PT reached out to medical team regarding weight bearing status, awaiting response. Last admission, pt unable to maintain NWBing. Will continue to follow as able/ as appropriate for OT evaluation. KRISTEL BARON OT, 12/22/2023, 7:07 * Dora Rowell RN - 12/21/2023 1803 EST Data: Assumed care 0700 this morning. Pt admitted for left diabetic foot ulcer. Morning lab draw with potassium of 5.5. Pt VS stable with exception of HR in the 130'2 r/t afib. Blood sugars ranging from 299 to 322. Independent, on dialysis since 2018, reports sometimes voids urine. C/o pain in the left foot throughout shift, rated from 7-9. Dressing on left heel clean, dry, intact. On telemetry Action: Seen by diabetes nurse educator. Administered meds per DEC. Hourly rounding complete. Response: Pain managed well with medication, rated 0 after administration. Pt slept through most ofshift, VSS. HR maintained under 100 through afternoon. DORA ROWELL RN 12/21/2023 18:03 * Arcelia Ponce, RD - 12/21/2023 1619 EST Renal Nutrition Initial Assessment: Medical Summary: 58 yo man admitted with diabetic foot ulcer- heel . Seen by orthopedics. IV antibiotics, possible debridement. Active Hospital Problems Diagnosis Date Noted *Cellulitis 12/20/2023 Atrial fibrillation with RVR ([facility]) 12/21/2023 Osteomyelitis ([facility]) 12/20/2023 Hyperkalemia [E87.5] 12/20/2023 Anemia of chronic renal failure, stage 5 ([facility]) [N18.5, D63.1] 12/20/2023 ESRD on hemodialysis ([facility]) 12/20/2023 Type 2 diabetes mellitus with chronic kidney disease on chronic dialysis, with long-term current use of insulin ([facility]) [E11.22, N18.6, Z99.2, Z79.4] 11/09/2023 Diabetic foot infection ([facility]) [E11.628, L08.9] 11/07/2023 ESRD (end stage renal disease) ([facility]) 11/11/2022 Primary hypertension [I10] 07/19/2016 Subjective: ANVIK per outpt Renal RD reports. Patient sleeping soundly. Spoke to his who reports she thinks he ate something today. He had some N/V BR[employer] [place]ON and while here. He tends towards constipation and he hasbeen using Miralax at home. No food allergies and is able to order food for himself. She agrees we should trial some nutritional supplements. Social Hx: Lives with his , is building a new home. Dialysis at [facility] Pertinent Past Medical History includes: Past Medical History: Diagnosis Date Asthma Mild Diabetes mellitus (HCC-CMS) DM2 Hyperlipidemia Hypertension Stage 3 chronic kidney disease ([facility]) Unsteady gait when walking Past Surgical History: Procedure Laterality Date APPENDECTOMY BACK SURGERY CHOLECYSTECTOMY DIALYSIS FISTULA CREATION Left SHOULDER SURGERY Height: 177.8 cm (70) Weight : 86 kg (189 lb 9.5 oz) Wt Readings from Last 6 Encounters: 12/20/23 86 kg (189 lb 9.5 oz) 12/17/23 87.5 kg (192 lb 14.4 oz) 12/15/23 89.4 kg (197 lb 1.5 oz) 12/13/23 89.1 kg (196 lb 6.9 oz) 12/10/23 88.2 kg (194 lb 7.1 oz) 12/08/23 86.7 kg (191 lb 2.2 oz) Body mass index is 27.2 kg/m??. Dialysis Prescribed Weight: 86.5 kg Usual Wt Post HD: 85-86 kg Interdialytic Fluid Gains: 2-6.5 kg Weight Hx: stable for at least the last 6 months IBW (+/-10%): 73 kg Adjusted Body Wt: ~ 80 kg ( High IBW) Diet Order: Nutrition Orders (From admission, onward) Start Ordered 12/21/23 1115 DIET RENAL DIALYSIS DIET EFFECTIVE NOW Question Answer Comment Sodium restriction: 3 g Na Fluid restriction: 1500 ml Protein restriction: No restriction Potassium restriction: 2 g K Phosphorus restriction: 1000 mg Additional restrictions: Consistent carbohydrate 12/21/23 1111 Nutritional Supplements: will trial Hi pro gelatin and Boost Glucose Control Dialysis Supplement Pass (prior to adm): Liquacel Followed by outpatient RD at dialysis. Last seen 12/10/23 . Nutrition discussed with his . Adequate protein encouraged, adherence to phosphate binders. His was working on getting a CGM to help with blood sugar control. Noted patient difficult to communicate with at dialysis d/t his somnolence and ANVIK. Food Allergies: none reported Nutrition Focused Physical Findings: Dentition: dentures Digestive Systems: Last BM not this admit Skin: Miller Scale 19 (nutrition 4) L heel ulcer Urine: ? Edema: 1-2 + per MD notes LE Nutrition Focused Physical Exam- no indication; as weight stable , appeared well nourished Estimated Nutritional Needs: 8828-2414 kcals ([place] St Jeor x 1.2-1.3) 100 g protein (1.2 g/kg using wt of 80 kg) Estimated Nutritional Intake: Will need to follow. Ordered 2 meals yesterday , 1 so far today Pertinent Labs include: Recent Labs 12/19/23 1749 12/20/23 0549 12/21/23 0942 BUN 47* 54* -- NA 132* 132* 132* K 5.5* 6.0* 5.5* CL 92* 92* 92* CO2 29 22 26 MG -- 2.1 2.0 CALCIUM 9.4 8.9 -- PHOS -- 6.3* 4.5 PLT 347 319 340 Lab Results Component Value Date LABALBU 2.7 (L) 12/20/2023 LABALBU 3.3 (L) 12/19/2023 LABALBU 2.9 (L) 11/29/2023 LABALBU 3.1 (L) 10/27/2023 Lab Results Component Value Date CALCIUM 8.9 12/20/2023 CALCCA 9.3 11/29/2023 PHOS 4.5 12/21/2023 MG 2.0 12/21/2023 PTH 707 (H) 10/27/2023 VITD 21 (L) 10/27/2023 MCV 92 12/21/2023 [id number] 607 10/27/2023 FOLATE >24.0 10/27/2023 HGBA1C 11.6 (H) 11/07/2023 Recent Labs 12/20/23 0728 12/20/23 1039 12/20/23 1238 12/20/23 1434 12/20/23 1850 12/20/23 2126 12/21/23 0857 GLUCOSEPOC 393* 212* 235* 270* 375* 399* 299* Pertinent Medications include: Current Facility-Administered Medications Medication Route Frequency acetaminophen (TYLENOL) tablet 650 mg oral Q6H atorvastatin (LIPITOR) tablet 40 mg oral DAILY calcium carbonate (TUMS) tablet 500 mg (200 mg elemental calcium) 2 Tablet oral EVERY MON, WED, FRI(DIALYSIS) dextrose 50 % solution 12.5 g intravenous PRN dilTIAZem (CARDIZEM) tablet 30 mg oral Q6H DULoxetine (CYMBALTA) delayed release capsule 20 mg oral BID epoetin ken (EPOGEN) 20,000 unit/2 mL injection 1,500 Units intravenous EVERY MON, WED, FRI (DIALYSIS) ertapenem (INVANZ) 500 mg in sodium chloride (NS) 0.9 % 50 mL IVPB intravenous Q24H famotidine (PEPCID) tablet 40 mg oral DAILY fluticasone propionate (FLOVENT) 110 mcg/actuation inhaler 1 Puff inhalation BID glucagon injection 1 mg intramuscular PRN heparin injection 5,000 Units subcutaneous Q12H HYDROmorphone (DILAUDID) tablet 1 mg oral Q4H PRN insulin aspart U-100 (NOVOLOG FLEXPEN) injection subcutaneous TID WC insulin glargine (LANTUS SOLOSTAR/SEMGLEE) injection pen 32 Units subcutaneous DAILY L.A. INSULIN lidocaine (PF) 10 mg/mL (1 %) injection 2 mg intradermal PRN lidocaine 5 % (LIDODERM) patch 1 Patch transdermal DAILY nicotine (NICODERM CQ) 21 mg/24 hr patch 1 Patch transdermal DAILY ondansetron (ZOFRAN-ODT) disintegrating tablet 4 mg oral Q4H PRN polyethylene glycol 3350 (MIRALAX) packet 17 g oral Daily PRN pregabalin (LYRICA) capsule 100 mg oral BID ramelteon (ROZEREM) tablet 8 mg oral AT BEDTIME PRN sevelamer carbonate (RENVELA) tablet 1,600 mg oral TID WC Assessment: Nutrition/ Adequacy: patient with stable weight for at least the last 6 months and reports of eating well BR[employer] [place]. Protein needs increased with hemodialysis and to help heal wound. Some nausea/vomiting prior to and since admit. Weight/ Volume: at times high fluid gains. 1.5 L fluid restriction ordered. Electrolytes: K tends to run high, Na low d/t volume, Mg acceptable CKD - Mineral Bone Disorder: Ca,Phos currently acceptable- phos often runs high and tends not to take phosphate binders if his is not around. Tums ordered with HD and Renvela as phosphate binder. PTH on high end of goal range for HD- no medications to treat ordered at this time Vitamins/ Minerals: Vit D low, B12 folate acceptable. Recommend 2000 IU D3, and Nephrovite daily Diabetes Management: High BG. Seen by Diabetes Nurse Educator. [facility] Nutrition Risk Level: Moderate (2) Medical Nutrition Therapy Plan and Recommendations: Continue Renal Diet with Consistent Carbohydrate Recommend add 2000 IU D3 and Nephrovite daily Recommend check Zinc level to assess if he needs supplement to help with wound healing. Will trial Boost Glucose Control ( 190 kcals, 16 gr pro, 16 gr cho, ) and high protein gelatin ( 90kcals, 20 gr pro,< 1 gm cho) to help meet protein needs Arcelia Ponce RD, CD (Call PAS or use [employer] (LibertadCard) to page RD covering this unit) * Joss Scruggs - 12/21/2023 1501 EST [facility] Progress Note train conductor asked for following information to be passed to provider. CM completed as requested. Family would like support with obtaining freestyle Maris and an OP referral to [facility] endocrinology. TESS Rivera Steel Rigger II Epic chat preferred. 12/21/2023 15:01 * Agustin Gonzalez, PT - 12/21/2023 1250 EST [facility] Rehabilitation Therapy Acute Therapy [facility] Physical Therapy Contact Note Date of Service: 12/21/2023 PT orders received. Per Ortho, patient to be NON Wt bearing LLE BUT last recent admission, he was allowed to be Toe Touch wt bearing as he was NOT able to maintain NWB status. Attending Dr Garza to clarify with Ortho. PT will evaluate in the next few days as clinically appropriate. AGUSTIN GONZALEZ, PT 12/21/2023 12:50 [id number] * Kristel Baron, MIGUEL ÁNGEL - 12/21/2023 1114 EST [facility] Therapy Acute Therapy [facility] Occupational Therapy Contact Note Date of Service: 12/21/2023 OT orders and chart reviewed. Spoke to RN regarding tachycardia cleared to see for OT this date. At time of attempt, pt with elevator repairer. Will re-attempt as able/ as schedule allows. Will continue to follow as able/ as appropriate for OT evaluation. Pt is now NWBing LLE due to diabetic foot ulcer. KRISTEL BARON, OT, 12/21/2023, 11:14 * Aarti Sanchez MD - 12/21/2023 0841 EST Images from the original note were not included. Orthopaedic Progress Note Pt Name: Gerson Bruner Service: Foot and Ankle Problem: Left diabetic heel ulcer S: Feeling well this AM. Had some nausea yesterday which has since resolved. Denies fevers, chills. Nonotable pain at left heel. O: Blood pressure 129/78, pulse 73, temperature 37 ??C (98.6 ??F), temperature source Tympanic, resp. rate 18, height 177.8 cm (70), weight 86 kg (189 lb 9.5 oz), SpO2 95 %. Gen: NAD Pulm: Non-labored breathing Focused MSK: LLE: Dressing C/D/I, underlying wound with areas along distal/medial margin that probe ~1cm deep. Overlying eschar mobile with underlying bogginess though no lili purulence Largely diminished light touch sensation distal to mid whiting Motor: diminished voluntary motor function (baseline) though intermittent spasms Nonpalpable pulses Labs: WBC/Hgb/Hct/Plts: 19.02/7.9/24.2/319 (12/20 548) Na/K/Cl/CO2: 132/6.0/92/22 (12/20 548) BUN/Cr/glu/ALT/AST/amyl/lip: 54/8.46/389/--/--/--/-- (12/20 0549) A: Gerson Bruner is a 58 y.o. male with pmd ESRD (MWF dialysis), DMII w/peripheral neuropathy, HTN, HLD, PAD for whom orthopedic surgery/podiaty has been consulted for left heel ulcer. No intervenable vascular disease with adequate healing capacity per recent ABIs per vascular surgery service. Imaging revealing subcutaneous air directly underlying ulcer, though this is in the setting of a wound that probes deep over a large portion of its surface and lack of otherwise concerning systemic symptoms. Tentative plan for further bedside debridement pending discussion with podiatry attending later today. P: WB - nonweightbearing left lower extremity, offloading with L'nard boot Will update later today with any plans for further debridement Abx - per primary Dry dressing changes for now (order updated) Appreciate remainder of care per primary service AARTI SANCHEZ MD 12/21/23 8:41 * Joss Scruggs - 12/21/2023 0821 EST Gerson Bruner 1965 Cellulitis Chart review completed and discussed the plan of care with the direct care RN and/or primary care team. Primary Insurance: Medicare ACO Secondary Insurance: Patient with no apparent Case Management needs at this time. No housing, transportation, insurance,resources concerns identified at this time. Supports in place to achieve a safe post-hospital transition. No identified barriers to accessing necessary care and/or follow-up after discharge. button maker and installer/Activity Specialist will continue to follow patient's progress and remain available if situation changes for coordination of care, psychosocial support and/or discharge planning. Gerson Bruner is a 58 y.o. 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 This pt is familiar to CM from admission on 11/07. Pt uses a FWW for ambulation. Pt lives with his - they can stay in his brother's home (stairs to get to apartment or a steep bank) or his mother's home- no stairs. They are currently building their own home which is why they are staying with family. Pt is a transfer from [facility] and is also a dialysis patient. Pt also receiving [facility] services at last admission- CM to refer again if needed. CM will update IP HD CM of admission and keep him updated as discharge gets closer. TESS Rivera Steel Rigger II Epic chat preferred. 12/21/2023 8:24 JOSS SCRUGGS 12/21/2023 8:21 * Riser, Melina Dozier MD MPH - 12/21/2023 0639 EST Medicine Progress Note Service Date: 12/21/2023 Admit Date: 12/19/2023 16:01 Reason for Admission: 58 y.o. male admitted with a chief complaint of left foot wound and now with a principal diagnosis of diabetic foot wound 24 Hour Events: admitted, developed AF RVR Subjective/Objective Subjective Patient reports ongoing foot pain. He denies CP, palpitations, SOB, dizziness, fever or shaking chills. Does endorse nausea but no vomiting today. He denies known hx of AF. We discussed risk/benefit of AC, which he will think about and discuss w his . Denies hx of GIB. Pt's updated by phone. Review of Systems A ten point review of systems was performed and was negative except for pertinent positives noted in the HPI Objective Vital Signs Temp: [35.8 ??C (96.4 ??F)-37.8 ??C (100.1 ??F)] , Heart Rate: [73 BPM-148 BPM] , Resp: [15-16] , BP: (132-150)/(64-96) , SpO2: [90 %-93 %] Physical Exam General appearance: alert, cooperative, no distress Eyes: conjunctivae/corneas clear. PERRL, EOM's intact. Fundi benign Throat/Mouth: MMM Lungs: clear to auscultation bilaterally, non labored breathing Heart: tachy and irregularly irregular, no MGR, no JVD Abdomen: soft, non-tender; bowel sounds normal; no masses, no organomegaly Neurologic: Grossly normal Extremities: extremities warm, atraumatic, no cyanosis, 2+ edema on LLE below knee and 1+ in RLE below knee Skin: Skin color, temperature, turgor normal. No rashes. Black eschar over L heel (see photo in chart) Melina Garza MD MPH 12/21/2023 12:58 Is PICC or central line present? No, PICC/Central line not present. Medications Reviewed: Changes notable for stopped metoprolol and started dilt Labs Reviewed: CBC: Recent Labs 12/19/239 12/20/23 0549 12/21/23 0942 WBC 20.14* 19.02* 18.21* HGB 8.3* 7.9* 8.0* HCT 26.2* 24.2* 24.7* MCV 94 93 92 PLT 347 319 340 BMP: Recent Labs 12/19/23174812/20/23 0549 12/21/23 0942 NA 132* 132* 132* K 5.5* 6.0* 5.5* CL 92* 92* 92* CO2 29 22 26 BUN 47* 54* -- CREATININE 7.85* 8.46* -- MG -- 2.1 2.0 PHOS -- 6.3* 4.5 CALCIUM 9.4 8.9 -- SERGLU 272* 389* -- Coags: No results for input(s): PROTIME, INR, PTT in the last 72 hours. Bcx 12/19 - NGTD Imaging Reviewed: L foot plain film: IMPRESSION FINDINGS / IMPRESSION: * No acute fracture or traumatic malalignment. * Subcutaneous air and edema in the soft tissues inferior to the calcaneus with adjacent ulcerationof the skin appreciated to better extent on same-day CT compatible with cellulitis. No evidence of osseous erosion to indicate osteomyelitis. * Atherosclerosis. * Scattered degenerative changes through the foot. Assessment/Plan Assessment 58 y.o. 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 Course complicated by new dx of AF RVR. Patient remains afebrile and HD stable. Plan #Left heel diabetic foot wound: may need debridement. -ID, Ortho and Vascular consulted, appreciate recs -Ertapenem 500mg IV daily (could potentially DC on 1g IV after HD three times per week for 6 week course) -dilaudid 1 mg Q4 hr PRN w bowel regimen -acetaminophen 650mg Q6 -Wound care consult, appreciate recs -Non weight bearing LLE per Ortho recs -f/u with [facility] on DC -f/u Bcx #AF RVR: new dx. Presumably provoked by infection. TSH wnl. CHADS2-Vasc2 score 5 (hx of TIA per , HTN, DM, PAD). -tele -metoprolol increased to 25 mg Q6 with minimal effect on HR, so will stop metoprolol -start dilt 30mg PO Q6, w goal HR <130s -Mg 2 g IV x 1 now -Patient would be candidate for AC (warfarin), but will hold off for now as he may need a procedurefor foot and patient wishes to discuss w -f/u TTE -will benefit from Cards referral on DC #ESRD on HD w Hyperkalemia: F dialysis as outpatient. -renal diet w 1.5L fluid restriction sevelamer, tums -Nephro consulted, appreciate recs -Lokelma 10mg x 1 now, with plan for HD tomorrow #Poorly controlled T2DM c/b peripheral neuropathy: A1c 11.6 in Oct. -increase glargine to 32u daily -SSI -DM educator consult -reduce [employer] [place] pregabalin dose from 200mg BID to 100mg given ESRD (increases risk of AMS, falls and COPD exacerbation). Recommend continuing to down titrate dose this hospitalization to lowest possible tolerated dose or off completely if tolerated. -referral to [facility] Endocrinology on DC. #Anemia of chronic disease No evidence of bleeding, Daily CBC #HTN/HLD -Continue atorvastatin 40 daily -Hold amlodipine 10, Coreg 12.5 twice daily in acute infectious setting, restart once patient proves pressures are stable inpatient #Tobacco use disorder -nicotine replacement, encourage cessation VTE Prophylaxis Pharmacologic Prophylaxis: Heparin 5000 units SQ Bid Discharge Plan Pending clinical improvement, likely home vs AJ. Will clarify w Ortho if he can be toe touch weight bearing as this would facilitate dc home ultimately. Consults Infectious Disease, Vascular, Ortho Melina Garza MD MPH 12/21/2023 6:39 * Kaden Galeas RN - 12/20/20231950 EST Images from the original note were not included. FOUR EYES SKIN ASSESSMENT Four Eyes skin assessment was performed on admission to the unit by Kaden Galeas RN and Cris Rojo RN. Patient has the following devices at the time of this assessment: Peripheral IV. Device related pressure injury present? No Areas of concern: Fill in detail for areas of concern [] Occiput [] Nose [] Ear [] Lip [] Scapula [] Spinous process [] Shoulder [] Elbow [] Iliac crest [] Sacrum/coccyx [] Ischial tuberosity [] Trochanter [] Knee [] Malleolus [x] Heel [] Toe [] Other: Right Lateral Heel Left Heel Last Miller Score: 18 Instructions: Add LDA for any identified wounds Add [place] image for any suspected PI or non surgical wounds Order wound consult if suspected PI identified If Miller is < or = to 16, initiate Pressure Injury Prevention Bundle ([id number]). 12/20/2023 19:51 * Sha Cabral MBBS - 12/20/2023 1508 EST Brief progress note Pt seen after HD, where course complicated by tachycardia and hypxoia. Now feels well. NO chest pain or sob, nausea, vomiting, dizziness. He does endorse some right sided abd pain that started a few minutes ago, non radiating, this happened a few days ago as well. States he had COVID last week but was not coughing. No falls. We reviewed his CXR and right sided chronic rib fracture, Denies copd or ashtma Exam NCAT Crackles on right lower mid and lower lung marti Abd bloated, nt nd normal bs Extremities no edema Left foot ulceration as described Neuro a o x 3 No focal deficits Labs, imaging, consult notes and EKG reviewed Plan #Left diabetic foot ulcer Appreciate ID, Ortho, Vascular surgery recs Iv ertapenem X6 weeks, can be done via HD as outpt Wound care Outpt ortho and vascular surgery follow up #DM with hyperglycemia Weight based insulin director medical safety #ESRD on HD MWF HD Labs reviewed #New afib Keep on tele Echo in morning #HT Continue lower dose coreg Hold amlodipine and olmesartan #Notably Dirty UA but denies dysuria. Would not treat for UTI #Continue [employer] [employer] [place] Pregabalin, lipitor, duloxetine, tums, sevelemer, fmaotidine, flovent, #oxygen destruations, suspect related to undiagnosed Chris Outpt sleep test Offer oxygen if sats <90% consistently IS CXR reviewed, no clear infiltrate FULL CODE MITH score 1 on admit; will keep on VTE prophylaxis wth heparin Apprecaite nephro, ID, Ortho, vascular sx consult * Genet Pride - 12/20/2023 0059 EST Respiratory Consult/Progress Note Indications for Respiratory therapy: asthma hx Data Vitals: , Resp: 18, SpO2: 96 % FIO2/O2 Device: , , O2 Device: None, RT Orders: Protocol Scoring: Bronchodilator/Inhalation Therapy Frequency Bronchodilator - Clinical Indications: History of bronchospasm Breath Sounds: Clear Response: No change / no treatment Pulse: <100 Resp Rate: <18 SOB: None Total Score: 0 Frequency Based On Total Score: 0-4 = PRN 5-7 = QID 8-10 = Q4H 11-12 = Q2H Airway Clearance Therapy Frequency Airway Clearance - Clinical Indications: No clinical indications Breath Sounds: Clear / diminished Sputum: Small (tsp) / None Consistency: None Cough Effort: Strong/ non-productive Color: None Total Score: 0 Frequency Based On Total Score: 0-3 = PRN 4-6 = QID and PRN 7-9 = Q4H and PRN 10-11 = Q2H and PRN Hyperinflation Therapy Frequency Hyperinflation - Clinical Indications: No clinical indications Breath Sounds: Clear Surgery: No X-Ray / Atelectasis: No O2 Requirements: O2 at baseline Mobility Status: Mobile / at baseline Total: 0 Frequency Based On Total Score: 0-3 = PRN 4-6 = QID and PRN 7-9 = Q4H and PRN 10-12 = Q2H and PRN Action/Events Respiratory events; Pt with asthma hx and Flovent listed in [employer] [place] but he states he does not use mdis at home. If ordered can switch to RN. No O2 use or NIV use noted. GENET PRIDE 12/20/23 documented in this encounter H&P Notes * Jacob Patel MD - 12/20/2023 0018 EST Hospital Medicine Admission History & Physical Admit Date: 12/19/2023 HPI Gerson Bruner is a 58 y.o. 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 Reportedly pain began 1 week ago and foot up to the left calf, with malodorous heel. Started amoxicillin however was noted to have fevers/chills at dialysis 12/17 with worsening pain in left foot and was switched to Cipro at that time. Pain continued to progress and so he went to [facility] 12/19. They received vancomycin and gentamicin after CT concerning for subcutaneous gas. Reportedly no evidence of osteomyelitis seen on the CT. On exam Gerson is frustrated that he is being woken up again questioning just wants to sleep. Denies current fevers, chills, pain in foot, shortness of breath or chest pain. Unsure what his meds are says that my takes care of them. Says he has been trying to eat less junk food and seems surprised to hear that his diabetes is quite bad. Attributes his infection to the debridement in ther than underlying diabetes. In the ED he was afebrile, heart rate in the 60s to 70s, normotensive, and satting well on room air. Lactic acid normal, labs showed sodium 132, K5.5, glucose 272, unremarkable LFTs, CRP of 187 and sed rate of 68, white count of 20 with neutrophilic predominance. Seen by vascular surgery who found Doppler pulses in the foot without concern for acute large vessel insufficiency. Seen by orthopedicswho did not feel acute intervention was warranted based on exam. Admitted to medicine for further workup and management Review of Systems A complete 10 point ROS was performed and pertinent positive and negative findings listed in HPI, otherwise negative. Past Medical History: Diagnosis Date Asthma Mild Diabetes mellitus (HCC-CMS) DM2 Hyperlipidemia Hypertension Stage 3 chronic kidney disease (HCC-CMS) Unsteady gait when walking Past Surgical History: Procedure Laterality Date APPENDECTOMY BACK SURGERY CHOLECYSTECTOMY DIALYSIS FISTULA CREATION Left SHOULDER SURGERY Social History Tobacco Use Smoking status: Every Day Current packs/day: 0.50 Types: Cigarettes Smokeless tobacco: Never Substance Use Topics Alcohol use: Yes Comment: Socially Family History Problem Relation Age of Onset Hypertension Maternal Grandmother Hypertension Maternal Grandfather Glaucoma Neg Hx Cataract Neg Hx Macular Degeneration Neg Hx Retinal Detachment Neg Hx Current Outpatient Medications Medication Sig amLODIPine (NORVASC) 10 mg tablet Take 1 [...] release capsule famotidine (PEPCID) 40 mg tablet Take 1 Tablet by mouth daily. FLOVENT HFA 110 mcg/actuation inhaler Inhale 1 Puff as directed. LEVEMIR FLEXPEN 100 unit/mL (3 mL) injectable pen liraglutide (VICTOZA 2-JULY) 0.6 mg/0.1 mL (18 mg/3 mL) injectable pen Inject 1.8 mg into the skin. MULTIVITAMIN ORAL Take by mouth. nicotine (NICODERM CQ) 21 mg/[address] 1 Patch onto the skin daily. nortriptyline (PAMELOR) 25 mg capsule Take 1 Capsule by mouth. olmesartan (BENICAR) 5 mg tablet TAKE ONE TABLET BY MOUTH EVERY DAY STOP HCTZ pregabalin (LYRICA) 150 mg capsule TAKE ONE CAPSULE BY MOUTH TWICE A DAY, MAXIMUM DAILY DOSE = 2 CAPSULES sildenafil citrate (VIAGRA) 100 mg tablet Take 1 Tablet by mouth. Allergies Allergen Reactions Clindamycin Gabapentin Penicillins Other (See Comments) Patient reports this occurred during childhood so he does not remember what happened Pregabalin Other reaction(s): Unsure Sertraline Other reaction(s): Unsure Objective Vitals Temp: [36.9 ??C (98.5 ??F)] , Heart Rate: --, Pulse: [65-72] , Resp: [17-18] , BP: (135-142)/(67-73) , SpO2: [92 %-96 %] , Numeric Pain Level (Scale 1-10): 7 Weight: There is no height or weight on file to calculate BMI. Physical Exam General: Sleeping in bed in no distress HEENT: sclera anicteric, conjunctiva clear, mucus membranes moist, no JVD appreciated Lungs: anterior and posterior lung marti clear to auscultation bilaterally Heart: regular rate and rhythm, no murmurs appreciated Abdomen: soft, non-tender, non-distended Extremities: See pictures of left heel in chart, foul-smelling with a black eschar Skin: normal skin texture and turgor without rashes or lesions, no diaphoresis Neuro: AAOx3, clear speech, facial features symmetrical, moving all extremities spontaneously Access: PIV Labs CBC: Recent Labs 12/19/23 1749 WBC 20.14* RBC 2.78* HGB 8.3* HCT 26.2* MCV 94 MCH 29.9 MCHC 31.7* PLT 347 NEUTROABS 16.32* SEDRATE 68* BMP: Recent Labs 12/19/23 1749 NA 132* K 5.5* CL 92* CO2 29 BUN 47* CREATININE 7.85* CALCIUM 9.4 LABALBU 3.3* LFT: Recent Labs 12/19/23 1749 TBIL <0.5 ALKPHOS 107 AST 18 ALT 15 Inflammatory Markers: Recent Labs 12/19/23 1749 SEDRATE 68* CRP 187.2* Imaging I have independently visualized images XR FOOT LEFT 3 OR MORE VIEWS Result Date: 12/19/2023 FINDINGS / IMPRESSION: * No acute fracture or traumatic malalignment. * Subcutaneous air and edema in the soft tissues inferior to the calcaneus with adjacent ulceration of the skin appreciated to better extent on same-day CT compatible with cellulitis. No evidence of osseous erosion to indicate ost eomyelitis. * Atherosclerosis. * Scattered degenerative changes through the foot. . Impression Gerson Bruner is a 58 y.o. 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 Problem and Recommendations #Diabetic foot wound, left #Neutrophilic leukocytosis Seen by orthopedics no acute intervention indicated per their note. Status post vancomycin and gentamicin outside hospital. No evidence on imaging (CT) of osteo. -f/u blood cultures (1 set drawn at HD session 12/17, another at presentation to ED 12/19) -Discontinue gentamicin, start ceftriaxone 2 g daily and metronidazole half a gram 3 times daily -consider vancomycin after HD session 12/21 (though no hx MRSA) -if deteriorating, broaden for pseudomonas coverage -Appreciate orthopedic input for potential future debridement #T2DM with neuropathy and nephrotpathy Patient does not know dosing of his diabetes medications. A1c 11.6 in October. Would like more information on how to improve his diabetes control. -Basal sliding scale insulin (high weight-based dosing, increase as needed) -Goal blood sugar 1 40-1 80 while inpatient -train conductor consult placed -Consistent carb diet #ESRD on HD #Hyperkalemia Wednesday dialysis as outpatient. Currently with mild hyperkalemia -Call nephrology in the morning to set up dialysis while inpatient -EKG now #Anemia of chronic disease No evidence of bleeding, Daily CBC #HTN #HLD Continue atorvastatin 40 daily -Hold amlodipine 10, Coreg 12.5 twice daily in acute infectious setting, restart once patient proves pressures are stable inpatient Checklist: Consults: Nephrology in a.m. Diet: Consistent carb, renal VTE Prophylaxis: Pharmacologic Prophylaxis: Heparin 5000 units SQ Bid Code status: Full PT/OT: Ordered Discharge Plan: Pending clinical course Activity Order: Activity as tolerated Nasim Patel MD, MPH PGY-3 12/20/2023 1:27 Secure chat or [id number] Cosigned by Isaac Rodriguez MD MPH at 12/20/2023 3:22 EST Associated attestation - Isaac Rodriguez MD MPH - 12/20/2023 0322 EST Attending Attestation I have interviewed and examined the patient. I personally reviewed laboratories studies, radiographic studies, and prior records. I discussed the case with the resident Dr Patel. I agree with thefindings and plan of care as documented in the note above. 58M, PMH poorly controlled DM with ESRDm presenting as transfer from [facility] with infected diabetic foot wound. Being admitted for IV antibiotics, f/u culture data and for ID eval as well for continued monitoring from orthopedics. Likely would benefit from better diabetes education - he appears to have limited insight into the severity of his disease. Would touch base with renal in AM, likely would benefit from HD today. Appreciate vascular/ortho input, no plans for surgical intervention at this time, f/u ortho note to see if they planned to debride and whether it probes to bone. Isaac Rodriguez MD MPH 12/20/2023 1am documented in this encounter Procedure Notes * Mirian Ruiz PA-C - 12/24/2023 0833 EST PROCEDURE NOTE: HEMODIALYSIS [facility] CONSULT SERVICE Please notify the Cut Off Sawyer Kiel Powers from [facility] Acute Dialysis in advance of tentative discharge date to confirm capacity for transfer back to outpatient dialysis unit. Code Status Full Code Admit Date 12/19/2023 Reason for Evaluation Hemodialysis for ESRD PLAN & RECOMMENDATIONS Lab Results Component Value Date NA 135 (L) 12/23/2023 K 4.5 12/23/2023 CL 94 (L) 12/23/2023 CO2 27 12/23/2023 MG 2.3 12/23/2023 Lab Results Component Value Date PUR 68.6 12/03/2023 BUNPRE 51 (H) 12/03/2023 BUNPOST 16 12/03/2023 #ESRD - Fluid Restriction 1.5 L fluid restriction every 24 hours - Renal diet restrictions - Electrolytes q dialysis or more frequently per primary team - Mild hyponatremia to be managed via hemodialysis - s/p lokelma x1 on 12/21 - Next Treatment: 12/27/23 Lab Results Component Value Date WBC 14.45 (H) 12/23/2023 RBC 2.59 (L) 12/23/2023 HGB 7.6 (L) 12/23/2023 HCT 23.7 (L) 12/23/2023 MCV 92 12/23/2023 MCH 29.3 12/23/2023 MCHC 32.1 (L) 12/23/2023 RDWCV 12.8 12/23/2023 RDWSD 42.0 12/23/2023 PLT 385 (H) 12/23/2023 MPV 12.0 12/23/2023 Lab Results Component Value Date [id number] 607 10/27/2023 LABIRON 28 11/29/2023 FERRITIN 694 (H) 11/29/2023 #Anemia of CKD - GEORGE: [facility] PA will manage with pharmacy - CBC at least weekly on Weds or Th for dialysis purposes - Continue epogen 1,500 units with dialysis #Infection: Has diabetic left foot wound. No acute intervention per ortho. No evidence of osteo on imaging. On ertapenem. 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 Would recommend continuing sevelamer hydrochloride on discharge. - Continue tums with dialysis #Hypertension - UF as tolerated PROCEDURE 12/24/2023 Access/function: AVF 12/24/2023 Dialysis Rx Heparin with Dialysis: 4500 unit bolus and 1500 units/hour ASSESSMENT/SUBJECTIVE Gerson Bruner is a 58 y.o. male with a past medical history of ESRD r/t DM II on maintenance hemodialysis since 02/14/2019, anemia of chronic disease, HLD, secondary hyperparathyroidism, h/o TIA who was admitted with right diabetic foot wound. Treatment plan includes antibiotics and dialysis three times weekly. He is s/p debridement of foot wound with ortho. Volume status euvolemic. Gerson Bruner seen and examined during hemodialysis today 12/24/2023. Prior dialysis 48 hours ago on12/22/23; interdialytic gain of 0.2 kg. Ultrafiltration target is 2L. Patient stable during treatment; blood pressure was 135/64 and HR was 68 at time of assessment. Heart rate has been stable throughout treatment in the 60s and 70s. He is likely going home today. OBJECTIVE Medications: Reviewed Imaging XR FOOT LEFT 12/20/23: FINDINGS / IMPRESSION: * No acute fracture or traumatic malalignment. * Subcutaneous air and edema in the soft tissues inferior to the calcaneus with adjacent ulcerationof the skin appreciated to better extent on same-day CT compatible with cellulitis. No evidence of osseous erosion to indicate osteomyelitis. * Atherosclerosis. * Scattered degenerative changes through the foot. CXR 12/20/23: IMPRESSION Patchy opacities within the right midlung and lung base which could represent pneumonia in this patient with leukocytosis. RECOMMENDATIONS: A short-term follow-up 2-view chest radiograph is recommended in 6-8 weeks to document resolution of lung opacity (or opacities) after therapy. Surgeries/Major Invasive Procedures N/A PMH Past Medical History: Diagnosis Date Asthma Mild Diabetes mellitus ([facility]-CMS) DM2 Hyperlipidemia Hypertension Stage 3 chronic kidney disease (HCC-CMS) Unsteady gait when walking PSH Past Surgical History: Procedure Laterality Date APPENDECTOMY BACK SURGERY CHOLECYSTECTOMY DIALYSIS FISTULA CREATION Left SHOULDER SURGERY Mirian Ruiz PA-C 12/24/2023 8:[address] Singh Zuñiga was on site and available for consultation. * Mirian Ruiz PA-C - 12/22/2023 0813 EST PROCEDURE NOTE: HEMODIALYSIS [facility] CONSULT SERVICE Please notify the Cut Off Sawyer Kiel Powers from [facility] Acute Dialysis in advance of tentative discharge date to confirm capacity for transfer back to outpatient dialysis unit. Code Status Full Code Admit Date 12/19/2023 Reason for Evaluation Hemodialysis for ESRD PLAN & RECOMMENDATIONS Lab Results Component Value Date NA 132 (L) 12/21/2023 K 5.5 (H) 12/21/2023 CL 92 (L) 12/21/2023 CO2 26 12/21/2023 MG 2.0 12/21/2023 Lab Results Component Value Date PUR 68.6 12/03/2023 BUNPRE 51 (H) 12/03/2023 BUNPOST 16 12/03/2023 #ESRD - Fluid Restriction 1.5 L fluid restriction every 24 hours - Renal diet restrictions - Electrolytes q dialysis or more frequently per primary team - Mild hyponatremia to be managed via hemodialysis - s/p lokelma x1 on 12/21 - Next Treatment: 12/24/23 Addendum: May need to consider lokelma on non dialysis days Lab Results Component Value Date WBC 18.19 (H) 12/22/2023 RBC 2.75 (L) 12/22/2023 HGB 8.2 (L) 12/22/2023 HCT 24.9 (L) 12/22/2023 MCV 91 12/22/2023 MCH 29.8 12/22/2023 MCHC 32.9 12/22/2023 RDWCV 13.0 12/22/2023 RDWSD 42.7 12/22/2023 PLT 366 12/22/2023 MPV 12.3 12/22/2023 Lab Results Component Value Date [id number] 607 10/27/2023 LABIRON 28 11/29/2023 FERRITIN 694 (H) 11/29/2023 #Anemia of CKD - GEORGE: [facility] 4 PA will manage with pharmacy - CBC at least weekly on Weds or Thurs for dialysis purposes - Continue epogen 1,500 units with dialysis #Infection: Has diabetic left foot wound. No acute intervention per ortho. No evidence of osteo on imaging. On ertapenem. 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 Would recommend continuing sevelamer hydrochloride on discharge. - Continue tums with dialysis #Hypertension - UF as tolerated PROCEDURE 12/22/2023 Access/function: AVF 12/22/2023 Dialysis Rx Heparin with Dialysis: 4500 unit bolus and 1500 units/hour ASSESSMENT/SUBJECTIVE Gerson Bruner is a 58 y.o. male with a past medical history of ESRD r/t DM II on maintenance hemodialysis since 02/14/2019, anemia of chronic disease, HLD, secondary hyperparathyroidism, h/o TIA who was admitted with right diabetic foot wound. Treatment plan includes antibiotics and dialysis three times weekly. Volume status euvolemic. Gerson Bruner seen and examined during hemodialysis today 12/22/2023. Prior dialysis 48 hours ago on 12/19/23; interdialytic gain of 0.5 kg. Ultrafiltration target is 2L. Patient stable during treatment; blood pressure was 119/88 and HR was 79 at time of assessment. He is feeling well today and is very happy with his care as of late. Now on diltiazem for new afib. Addendum: Heart rate increased into the 120s roughly shelter through treatment. BP has remained stable at 115/70 and he is asymptomatic. Will terminate treatment early if BP drops, heart rate increases above 140, or if he becomes symptomatic. Hopeful to complete full treatment however due to persistent, mild hyperkalemia. OBJECTIVE Medications: Reviewed Imaging XR FOOT LEFT 12/20/23: FINDINGS / IMPRESSION: * No acute fracture or traumatic malalignment. * Subcutaneous air and edema in the soft tissues inferior to the calcaneus with adjacent ulcerationof the skin appreciated to better extent on same-day CT compatible with cellulitis. No evidence of osseous erosion to indicate osteomyelitis. * Atherosclerosis. * Scattered degenerative changes through the foot. CXR 12/20/23: IMPRESSION Patchy opacities within the right midlung and lung base which could represent pneumonia in this patient with leukocytosis. RECOMMENDATIONS: A short-term follow-up 2-view chest radiograph is recommended in 6-8 weeks to document resolution of lung opacity (or opacities) after therapy. Surgeries/Major Invasive Procedures N/A PMH Past Medical History: Diagnosis Date Asthma Mild Diabetes mellitus (HCC-[facility]) DM2 Hyperlipidemia Hypertension Stage 3 chronic kidney disease (HCC-CMS) Unsteady gait when walking PSH Past Surgical History: Procedure Laterality Date APPENDECTOMY BACK SURGERY CHOLECYSTECTOMY DIALYSIS FISTULA CREATION Left SHOULDER SURGERY Mirian Ruiz PA-C 12/22/2023 8:[address] Singh Zuñiga was consulted regarding tachycardia on dialysis. * Chelle Odell MD - 12/22/2023 0123 EST Images from the original note were not included. Orthopedic Foot Debridement Obtained verbal consent. Risks, benefits, and alternatives discussed. Patient elected to proceed with debridement of left heel foot wound and eschar. Patient was prepped and draped in standard sterile fashion. Dissection was carried down to bleedingtissue. There was an area of the medial calcaneus that had overlying soft tissue and fascia but bone was not encountered. No lili or expressible purulence encountered. Wound was irrigated with 1L ofsterile normal saline. Wound was dressed with wet Kerlix, dry 4 x 4, dry Kerlix, Ja bandage. Patient tolerated procedure well. EBL minimal. Postdebridement picture below. Medial Heel periosteum biopsy taken and sent for culture. CHELLE ODELL MD PGY-1 Orthopaedic Surgery 12/22/2023 1:27 Pager #[phone], or EPIC Chat * Mirian Ruiz PA-C - 12/20/2023 0903 EST PROCEDURE NOTE: HEMODIALYSIS [facility] CONSULT SERVICE Please notify the Cut Off Sawyer Kiel Powers from [facility] Acute Dialysis in advance of tentative discharge date to confirm capacity for transfer back to outpatient dialysis unit. Code Status Full Code Admit Date 12/19/2023 Reason for Evaluation Hemodialysis for ESRD PLAN & RECOMMENDATIONS Lab Results Component Value Date NA 132 (L) 12/20/2023 K 6.0 (H) 12/20/2023 CL 92 (L) 12/20/2023 CO2 22 12/20/2023 MG 2.1 12/20/2023 Lab Results Component Value Date PUR 68.6 12/03/2023 BUNPRE 51 (H) 12/03/2023 BUNPOST 16 12/03/2023 #ESRD - Fluid Restriction 1.5 L fluid restriction every 24 hours - Renal diet restrictions - Electrolytes q dialysis or more frequently per primary team - Mild hyponatremia to be managed via hemodialysis - Next Treatment: 12/22/23 Lab Results Component Value Date WBC 19.02 (H) 12/20/2023 RBC 2.60 (L) 12/20/2023 HGB 7.9 (L) 12/20/2023 HCT 24.2 (L) 12/20/2023 MCV 93 12/20/2023 MCH 30.4 12/20/2023 MCHC 32.6 (L) 12/20/2023 RDWCV 12.8 12/20/2023 RDWSD 44.1 12/20/2023 PLT 319 12/20/2023 MPV 12.0 12/20/2023 Lab Results Component Value Date [id number] 607 10/27/2023 LABIRON 28 11/29/2023 FERRITIN 694 (H) 11/29/2023 #Anemia of CKD - GEORGE: [facility] 4 PA will manage with pharmacy - CBC at least weekly on or for dialysis purposes - Continue epogen 1,500 units with dialysis #Infection: Has diabetic left foot wound. No acute intervention per ortho. No evidence of osteo on imaging. On ceftriaxone and metronidazole. 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 Would recommend continuing sevelamer hydrochloride on discharge. - Continue tums with dialysis #Hypertension - UF as tolerated PROCEDURE 12/20/2023 Access/function: AVF 12/20/2023 Dialysis Rx Heparin with Dialysis: 4500 unit bolus and 1500 units/hour ASSESSMENT/SUBJECTIVE Gerson Bruner is a 58 y.o. male with a past medical history of ESRD r/t DM II on maintenance hemodialysis since 02/14/2019 who was admitted with right diabetic foot wound. Treatment plan includes antibiotics and dialysis three times weekly. Volume status euvolemic. Gerson Bruner seen and examined during hemodialysis today 12/20/2023. Prior dialysis 72 hours ago on 12/17/23; interdialytic gain of 2.08 kg. Ultrafiltration target is 2L. Patient stable during treatment; blood pressure was 111/63 and HR was 70 at time of assessment. He is very tired today as he hasnot slept well the last two nights. He is not happy with how often he was woken up last night. Addendum: Heart rate increased to a max of 150 after treatment ended. It varied between 90 and 140.O2 sat would drop low into the high 80s, but he refused the nasal cannula because he said he didn'tneed it. He was initially nauseous but later said he was not experiencing any symptoms. Stat EKG ordered and demonstrated afib with RVR. Primary team notified and is going to assess the patient in his room. OBJECTIVE Medications: Reviewed Imaging XR FOOT LEFT 12/20/23: FINDINGS / IMPRESSION: * No acute fracture or traumatic malalignment. * Subcutaneous air and edema in the soft tissues inferior to the calcaneus with adjacent ulcerationof the skin appreciated to better extent on same-day CT compatible with cellulitis. No evidence of osseous erosion to indicate osteomyelitis. * Atherosclerosis. * Scattered degenerative changes through the foot. CXR 12/20/23: IMPRESSION Patchy opacities within the right midlung and lung base which could represent pneumonia in this patient with leukocytosis. RECOMMENDATIONS: A short-term follow-up 2-view chest radiograph is recommended in 6-8 weeks to document resolution of lung opacity (or opacities) after therapy. Surgeries/Major Invasive Procedures N/A PMH Past Medical History: Diagnosis Date Asthma Mild Diabetes mellitus (HCC-CMS) DM2 Hyperlipidemia Hypertension Stage 3 chronic kidney disease (HCC-CMS) Unsteady gait when walking PSH Past Surgical History: Procedure Laterality Date APPENDECTOMY BACK SURGERY CHOLECYSTECTOMY DIALYSIS FISTULA CREATION Left SHOULDER SURGERY Mirian Ruiz PA-C 12/20/2023 9:[address] Singh Zuñiga was on site and available for consultation. documented in this encounter Consult Notes * Bria Blake, RN - 12/21/2023 1319 ESTAssociated Order(s): CONSULT DIABETES EDUCATION Diabetes Nurse Clinician Consult/Education Note: current A1C=11.6% Nephropathy,neuropathy ,HTN, HLD,PAD &TUD. Type of DM: T2DM SMBG: does not check per (We have no machine to do that.) Medications: Levemir 30 units Qpm DM Provider: PCP Mike Greer DM Hx: 30 years Assessment/Education: Consulted for diabetes education. Xander reports that his Hoda does all his care and is better at answering these questions than I am. Xander tells me he is very tired. Has significant left foot DM ulcer. ESRD on HD for the past 3.5 years. Schedule is MWF. His dialysis siteis [place]. Tells me that he has minimal feeling in his feet and lower legs. Hoda tells me that shesets up Xander's insulin pen and he self injects. Encouraged his to use good rotation of sites for best absorption. Hoda reports many things were supposed to happen after his last admission and we are still waiting. Tells me there was confusion related to his smoking and ability to be on the transplant list. She reported he found out today he is on the list. Encouraged smoking cessation for healing and affect on his heart and blood vessels.They were to follow-up with OP endocrinology at [facility] she states she called them and there was no record. Was also being set up with a freestyle Librethis did not happen. They had no meter to self monitor. Provided Caring for Diabetes packet with review of diabetes survival skills handout ,Insulin pen injections and when to call his provider for out of range results. Discussed hypoglycemia for a patient on dialysis is 100.Reviewed hyperglycemia.Discussed health consequences of missing medications and consequences of hyperglycemia. Discussed ways of to make checking BG before taking insulin part of routine as this may help prevent future complications, infection and hospitalizations. Hypoglycemia - what is it and how to treat ? This is low blood sugar generally we consider this to be below 70 mg/dl or below this may vary fromperson to person. The only sure way to know whether you are experiencing low blood sugar is to check your blood sugar. Some symptoms you might notice are shaking sweating clamminess anxiety rapid heartbeat chills or feeling lightheaded. Blurred vision difficulty concentrating, slurred speech numbness drowsiness, cancome on when the blood sugar level continues to drop, the brain does not get enough glucose and stops functioning as it should. Treatment-- 15-15 Rule The 15-15 rule--have 15 grams of carbohydrate to raise your blood sugar and check it after 15 minutes. If it's still below 70 mg/dL, have another serving. Repeat these steps until your blood sugar is at least 70 mg/dL. Once your blood sugar is back to normal, eat a meal or snack to make sure it doesn't lower again. This may be: Glucose tablets 3-4 Gel tube 4 ounces (1/2 cup) of juice or regular soda (not diet) 1 tablespoon of sugar, honey, or corn syrup Hard candies, jellybeans or gumdrops--see food label for how many to consume Monitoring blood sugar, with either a meter or a CGM, is the tried and true method for preventing hypoglycemia. Studies consistently show that the more a person checks blood sugar, the lower his or her risk of hypoglycemia. This is because you can see when blood sugar levels are dropping and can treat it before it gets too low. If you can, check often! Check before and after meals. Check before and after exercise (or during, if it's a long or intense session). Check before bed. After intense exercise, also check in the middle of the night. Check more if things around you change such as, a new insulin routine, a different work schedule, an increase in physical activity, or travel across time zones. Hyperglycemia (high blood sugar)-what is it and how to treat? You may have no symptoms, which is why it is important to check blood sugars! Hyperglycemia is a blood sugar over 150 mg/dl. How you might feel: Tired Dry mouth or skin Thirsty Frequent urination Headache Frequent infection Irritable Poor healing What to do: Drink 6-8 ounces of water or sugar free fluids every 1-2 hours. Eat less food. Be more physically active; go for a walk. Be sure you have taken your diabetes medication. Call your health care provider for advice if you forgot to take it. Check your blood sugar 3-4 times a day for 3-5 days in a row to see if blood sugars remain high. If you have type 1 diabetes, check urine ketones when blood sugar is over 250 mg/dl Call your doctor if: Blood sugar numbers stay over 150 mg/dl for 5 days. You have unexplained blood sugar of 300 mg/dl or higher. You are sick: ill, infection, injury, or are unable to keep fluids down. Urine ketones are moderate or large. What causes Hyperglycemia? Food: more food than usual; hidden sugars; too many carbohydrates or fats. Activity: less activity than usual or not exercising enough. Diabetes Medication: not enough insulin or diabetes medication; forgetting to take it. Other medication: taking other medications especially steroids. Illness, Infection or Injury: short or detention illness, even a migraine. Insulin Pen Injection six step method for patients 1. Clean stopper with alcohol attach the needle remove 2 caps. 2. Clear the air by priming the pen with 2 units check the window (return to zero.). 3. Dial desired dose cleanse your skin with alcohol prep pad. 4. Inject, push, count to ten. 5. Check the window that it returned to zero to ensure you received all your dose. 6. Remove the pen needle with larger plastic cap and dispose safely in sharps container.( If you are using 2 different insulins make sure you are injecting at least 2 inches apart on your body. Also important to herminia pens using a rubber band to avoid mixing them up. Injection location sites Abdomen Upper and outer arm Front and sides of thighs Buttocks Keep your unopened pens in the refrigerator they are good until expiration on box. After open can be left out room temperature for up to 28 days. Avoid very hot or very cold temperatures. Can try keeping your supplies in a pouch such as pencil case to keep it all together and place on your placemat while setting the table for meals. This will be your reminder to check your BG and take your insulin just prior to your meal. Use of the ONETOUCH Verio Reflect Blood Glucose Monitoring System WASH your hands with soap and water and dry well. Contaminants on the skin may affect the results Prepare the testing supplies: The meter, a test strip, a lancet, the Delica lancing device and a tissue to wipe the first drop of blood off from your finger Prepare the Delica lancing device by rotating the cap - then pulling it straight off, and insertinga new lancet until it clicks in place for each test. Twist the lancet cover one full turn until it separates from the lancet Replace the lancing device cap by snapping it on Adjust the depth setting on the base of the lancing device Cock the lancing device by pulling the slider back until it clicks Prepare the meter by inserting a new test strip, silver prongs first, gold side up - to turn the meter ON Puncture either side of your finger by holding the lancing device firmly against your finger, pressthe round green release button, and remove the lancing device from your finger. Gently squeeze your finger tip until a round drop of blood forms, and wipe that first drop off, andtest the second drop by touching it to the dark channel on the side of the strip, wicking it up completely. The channel turns red, and the meter will count down from 5 to1. It is recommended to remove the lancet over plastic receptacle by sliding the slider forward towards the round green release button, until it drops out View the result, and write it down in a logbook if desired. Your meter stores 750 test results. Refer to the Site Monitor's Booklet for acquiring control solution from your pharmacy see page 68, 74, 76 for more details. A new feature of this meter provides the ColorSure Dynamic Range Indicator and Blood Sugar Stanton Messages along with other feature you can explore in your assistant media planner's manual. Sick Day Management Handout Review: Why worry [...] Before bed: less than 140 mg/dl Recommendations: Reminder: Please note that hypoglycemia for a patient undergoing hemodialysis is <100 not 70. This is not a critical value but it is hypoglycemia and requires treatment.Treat withapple juice. Supplies recommended for d/c: onetouch verio test strips and onetouch delica lancets (please do notprescribe the glucometer, this was already provided to him) for at least 4 checks per day, 32 gaugeultra fine anny insulin pen needles, ketostix, emergency glucagon (Gvoke hypopen is a good choice if insurance covers). Consider Parental Healthstyle Maris to assist with pats ability to check BG and OP referral to endocrinology dept at [facility]. Recommend assistance from CM with these requests. Bria GOMEZ RN CDCES Diabetes Nurse Clinician Contact via secure chat or page * Ana Cohn NP - 12/21/2023 1052 EST Images from the original note were not included. Wound Care Consult Admit Date: 12/19/2023 Date of Service: 12/21/2023 Reason for Consult: Wounds left and right heels Consulted by Kaden Galeas RN HPI 58 y.o. male with a PMHx of T2DM (A1c 11.6 with nephropathy and neuropathy), ESRD (MWF HD), HTN, HLD, PAD, tobacco use disorder and recent [facility]. Course complicated by new dx of AF RVR. Patient remains afebrile andHD stable. Assessment Patient assessed at bedside, reports is more knowledgeable about his wound appearance and wound care. Believes his right lateral heel wound has been present for about 3 weeks, states he is using medihoney daily to this area at home. His assists with dressing changes. Per chart review, left heel wound has been present for several weeks. He is followed by [facility] for wound care, patient states he is seen weekly. Believes after wound was debrided, wound worsened.Describes using a topical debriding agent, unable to recall the name. Right lateral heel wound measures 1.5x0.5cm, wound bed is covered with adherent slough. Devitalizedtissue not able to be removed with mechanical debridement. Slight undermining 12-12 o'clock for 0.2cm. Periwound skin with dry peeling callus. No erythema, drainage or pain noted. Wound cleaned, medihoney applied and covered with a mepilex border. Dry dressing to left heel removed, scant sanguineous exudate. Full thickness wound to left heel approximately 6.5x10cm, wound bed largely covered with devitalized tissue. Wound is malodorous, boggy eschar particularly to the medial aspect of the wound, no drainage expressed when probing. Periwound skin with peeling callus, erythema limited to wound edges. Patient reports reduced sensation but states he is able to feel pain in his feet. No pain endorsed during wound assessment. Wound cleaned with Vashe, covered with a dry ABD pad, secured with elastic netting. During wound care assessment, patient had one episode of emesis, denied any ongoing nausea. Nursing and primary team updated, Ortho continuing to follow left heel. Wound care will continue tofollow patient as able. Right lateral heel Left heel Recommendations Left heel Defer to Ortho Right lateral heel Clean with normal saline Apply medihoney to wound bed, cover with a mepilex border. Change every other day Pressure Injury Prevention Bundle Q2hr turns, tilt sufficiently to fully offload sacrum/coccyx Limit HOB elevation to 30 degrees unless medically contraindicated Prophylactic Sacral Mepilex, change every 5-7 days, lift qshift to assess. Leave off if soiled withincontinence more than once/day. Float both heels OFF BED Waffle cushion for recliner Limit time OOB to 2hr, unless patient able to sufficiently/completely shift weight to offload pressure points AVOID briefs and adult diapers Disposable Ultrasorb white underpads- check every 2hrs and change prn Provide nutritional supplements as per nutrition guidelines Wound Care will follow this patient. Please contact us via SecureChat ([facility] Wound Care Team) or reconsult for further concern. Ana Cohn ELECTROENCEPHALOGRAPHIC TECHNOLOGIST, AGACNP-BC, CWCN-AP Certified Wound Care Nurse Practitioner * Melvin Shelby MD - 12/20/2023 1155 EST ID CONSULT Requested by: Dr. Cabral Reason: Foot infection HPI: This is a 58-year-old man who returned on December 19 with a left heel infection. He had been admitted November 07-2023 with a left heel infection and COVID. It was debrided, he had an MRI, and he was treated with vanco, ceftriaxone, and metronidazole. His antibiotics were narrowed to Augmentin when he was discharged. He says he took that before being switched to Cipro recently which he only took 1 dose of. He said he is followed by [facility] and has had serial debridements with a gradual increase in the size of the ulcer. He is very worried about his inability to work and is worried about amputation. PMH: End-stage renal disease, diabetes, smoking, neuropathy, COVID MEDS: List reviewed. Antibiotics: Recent antibiotics have included Vancomycin Metronidazole Ceftriaxone Gentamicin Augmentin Cipro ALL: Penicillin? Clindamycin? SOCIAL: Lives in [place]. Trying to build a house. ROS: Bilateral foot ulcers, left greater than right. Pain. Fever. No respiratory symptoms. Other review of systems negative on 10 point review EXAM: Chronically ill-appearing but no distress Afebrile Blood pressure 150/64 Seen on dialysis Left AV fistula Chest clear Heart sounds distant Abdomen soft Bilateral foot ulcers. Left is 7 x 4 cm and necrotic over the heel. The right lateral foot has a smaller ulcer. DATA: White blood cell count 19 CRP 187 MRI November 07: 1. Superficial ulceration over the medial aspect of the calcaneus, moderate diffuseskin thickening throughout the ankle and imaged foot, and subcutaneous edema, compatible with cellulitis. 2. No organized or drainable collection or abscess formation seen. 3. No MR imaging evidence of osteomyelitis. I called [facility]. There is a wound culture from October 31 with group B strep, Klebsiella resistant to ampicillin and intermediate to cefazolin, and MSSA. I was unable to make telephone contact with [facility] Tissue culture November 08 with Klebsiella resistant to ampicillin and cefazolin, and MSSA Left foot plain film now with no osteo Chest x-ray now reviewed with patchy right-sided opacity Blood cultures no growth CT scan December 18 MVR H without osteo IMPRESSION: Necrotic left heel ulcer Radiology and debridement suggest no significant osteomyelitis Microbiology has included MSSA, group B strep, and Klebsiella Leukocytosis, high CRP Abnormal chest x-ray, recent COVID, no comparison, asymptomatic SUGGESTIONS: Discontinue ceftriaxone and metronidazole Ertapenem 500 IV every 24 in the evening Wound care team Follow[facility] with [facility] Consider ertapenem 1 g IV after dialysis 3 times a week as an outpatient to complete 6 weeks Discussed with pharmacy I spent a total of 90 minutes on the date of this encounter meeting with the patient and reviewing documentation/coordinating care as described in the above note. Heron * Kenton Verdugo MD - 12/19/2023 2105 EST Images from the original note were not included. Orthopaedic Surgery Consultation Consultation requested by: Dr. Youngblood for: Left heel diabetic foot ulcer HPI: Gerson Bruner is a 58 y.o. male with PMHx ESRD on dialysis MWF, DM2 (A1c11.6 11/07/23), diminished pulses to LLE, HTN, HLD, PAD, diabetic neuropathy, tobacco use, last seen by our orthopaedic serviceon 11/07/23 for worsening of left heel ulcer where debridement was performed to healthy bleeding tissue, who presents with worsening pain of the left foot with worsened odor and subjective chills. He notes that a few days ago, he began having pain of the whole left foot, but primarily localized to the heel and last night noted pain at the dorsum of the foot. He also endorses an odor from the left foot for about a week and yesterday chills and a temp of 100F. He currently denies pain in the left foot upon the time of visit by this examiner. Per chart review, he had been taking amoxicillin BID but during a dialysis session on 12/17, he was noted to have fever and chills as well as worsening left foot pain so he switched to Cipro. Pain continued so he presented to the [facility] ED yesterday where he received vancomycin and gentamicin. Ambulatory status: FWW Last meal: 12/19 0900 Past Medical History: Diagnosis Date Asthma Mild Diabetes mellitus ([facility]) DM2 Hyperlipidemia Hypertension Stage 3 chronic kidney disease ([facility]) Unsteady gait when walking Past Surgical History: Procedure Laterality Date APPENDECTOMY BACK SURGERY CHOLECYSTECTOMY DIALYSIS FISTULA CREATION Left SHOULDER SURGERY Prior to Admission medications Medication Sig Start Date End Date Taking? Authorizing Provider amLODIPine (NORVASC) 10 mg tablet Take 1 Tablet by mouth daily. Cydney Looney MD atorvastatin (LIPITOR) 40 mg tablet Take 1 Tablet by mouth daily. Cydney Looney MD calcium carbonate (TUMS) 200 mg calcium (500 mg) tablet,chewable Take 1 Tablet by mouth 3 times daily with meals. Cydney Looney MD carvediloL (COREG) 12.5 mg tablet Take 1 Tablet by mouth 2 times daily. Cydney Looney MD DULoxetine (CYMBALTA) 20 mg delayed release capsule 12/03/23 Cydney Looney MD famotidine (PEPCID) 40 mg tablet Take 1 Tablet by mouth daily. Cydney Looney MD FLOVENT HFA 110 mcg/actuation inhaler Inhale 1 Puff as directed. 03/08/23 Cydney Looney MD LEVEMIR FLEXPEN 100 unit/mL (3 mL) injectable pen 01/19/23 Cydney Looney MD liraglutide (VICTOZA 2-JULY) 0.6 mg/0.1 mL (18 mg/3 mL) injectable pen Inject 1.8 mg into the skin. 11/05/23 Cydney Looney MD MULTIVITAMIN ORAL Take by mouth. Cydney Looney MD nicotine (NICODERM CQ) 21 mg/[address] 1 Patch onto the skin daily. 11/11/23 Terri Aly MD nortriptyline (PAMELOR) 25 mg capsule Take 1 Capsule by mouth. 11/05/23 Cydney Looney MD olmesartan (BENICAR) 5 mg tablet TAKE ONE TABLET BY MOUTH EVERY DAY STOP HCTZ 08/04/23 Cydney Looney MD pregabalin (LYRICA) 150 mg capsule TAKE ONE CAPSULE BY MOUTH TWICE A DAY, MAXIMUM DAILY DOSE = 2 CAPSULES 08/03/23 Cydney Looney MD sildenafil citrate (VIAGRA) 100 mg tablet Take 1 Tablet by mouth. 11/05/23 Cydney Looney MD Allergies Allergen Reactions Clindamycin Gabapentin Penicillins Other (See Comments) Patient reports this occurred during childhood so he does not remember what happened Pregabalin Other reaction(s): Unsure Sertraline Other reaction(s): Unsure Family History Problem Relation Age of Onset Hypertension Maternal Grandmother Hypertension Maternal Grandfather Glaucoma Neg Hx Cataract Neg Hx Macular Degeneration Neg Hx Retinal Detachment Neg Hx Social History: reports that he has been smoking cigarettes. He has never used smokeless tobacco. He reports current alcohol use. He reports current drug use. Drug: Marijuana. Occupational History Not on file Review of Systems: A 10-point review of systems was obtained and pertinent positives are included in the HPI. All others are negative. Physical Exam: BP 138/70 Pulse 68 Temp 36.9 ??C (98.5 ??F) (Oral) Resp 17 SpO2 94% General: alert, awake, no apparent distress Respiratory: non labored breathing CV: regular rate and rhythm as judged by distal pulses Focused Musculoskeletal and Neurovascular Examination Left lower extremity: - Area of ulceration and eschar pictured below measuring 7x4cm. Does not probe to bone. No expressible areas of fluctuance.. 2+ pitting edema - No tenderness to palpation of the forefoot, midfoot, hindfoot, ankle, leg, knee, thigh. No tenderness with straight leg raise or logrolling at the hip. - Sensation intact to light touch in sural, saphenous, superficial peroneal, deep peroneal, and tibial nerve distribution although diminished distal to the ankle secondary to baseline neuropathy - 2/5 strength in tibialis anterior, 5/5 gastroc soleus complex, 0/5 extensor hallucis longus, 0/5 flexor hallucis longus; 5/5 strength in quads, hamstrings, hip flexors - nonpalpable DP and PT pulses Right lower extremity: - Ulceration with small eschar pictured below on lateral foot measuring 2x1cm - No tenderness to palpation of the forefoot, midfoot, hindfoot, ankle, leg, knee, thigh. No tenderness with straight leg raise or logrolling at the hip. - Sensation intact to light touch in sural, saphenous, superficial peroneal, deep peroneal, and tibial nerve distributions although diminished below the ankle secondary to baseline neuropathy - 1/5 strength in tibialis anterior, 5/5 gastroc soleus complex, 0/5 extensor hallucis longus, 0/5 flexor hallucis longus; 5/5 strength in quads, hamstrings, hip flexors - non palpable DP and PT pulse Labs: WBC/Hgb/Hct/Plts: 20.14/8.3/26.2/347 (12/19 1748) Na/K/Cl/CO2: 132/5.5/92/29 (12/19 1748) BUN/Cr/glu/ALT/AST/amyl/lip: 47/7.85/272/15/18/--/-- (12/19 1748) ESR: 68 CRP: 187.2 HgbA1c: 11.6 11/07/23 Diagnostic Imaging: - CT foot as well as AP, oblique, and lateral radiographs of the left foot demonstrate no acute fracture or dislocation. Area of soft tissue air in area of known ulceration noted inferior to the calcaneous but with no evidence of osseus involvement or osseus erosion. Assessment: Gerson Bruner [id number] 1965 Gerson Bruner is a 58 y.o. male PMHx ESRD on dialysis MWF, DM2 (A1c11.6 11/07/23), HTN, HLD, PAD, diabetic neuropathy, tobacco use, last seen by our orthopaedic service on 11/07/23 for worsening of left heel ulcer where debridement was performed to healthy bleeding tissue previously. Infection seems limited soft tissue without any exposed bone or concern for osteomyelitis at this juncture. Unfortunately his heel ulcerations worsened despite conservative therapy. Given the morbidity of surgical debridement and limited soft tissue coverage of the heel and calcaneus he should continue conservative therapy, and we recommend dressing changes, nutrition consult, diabetic optimization. He does have ABIs that were performed previously and left lower extremity 0.58 indicating adequate healing capacity, and vascular surgery has evaluated the patient and deemed no large vessel disease that is intervenable. He has nonpalpable pulses, inadequate offloading and diabetes may be contributing to his inability to heal. We would recommend continue conservative management, aggressive offloading of his heels with L'Nards splints and infectious disease involvement. Plan: No further acute orthopaedic intervention L'Nard splints, aggressive offloading of bilateral heels Antibiotics per primary. Appreciate vascular input Recommend infectious disease consult Recommend nutrition labs and consult Dressing changes: wet to dry left heel No contraindication to diet or chemoprophylaxis Follow-up in orthopedics podiatry clinic. We will place referral. Discussed with: will be discussed with Dr. Vincent and Dr. Bentley in the AM KENTON VERDUGO MD 12/19/23 21:06 Cosigned by Romeo Bentley IV, MD at 12/20/2023 14:44 EST * Teja Whipple MD - 12/19/2023 2017 EST Vascular Surgery Consult Note Admit Date: 12/19/2023 Date of Service: 12/19/2023 HPI: 57 y.o. male with a PMHx of ESRD (on MWF hemodialysis), T2DM, HTN, HLD, PAD, diabetic neuropathy, tobacco dependence, and known diabetic left heal wound, presenting with worsening left foot pain,fevers, chills and new left foot erythema. Patient states that he began noticing worsening pain several days ago in his left foot, and states that he began having fevers and chills yesterday. Denies any CP, fevers, SOB. PMH PSH Past Medical History: Diagnosis Date Asthma Mild Diabetes mellitus (HCC-CMS) DM2 Hyperlipidemia Hypertension Stage 3 chronic kidney disease (HCC-CMS) Unsteady gait when walking Past Surgical History: Procedure Laterality Date APPENDECTOMY BACK SURGERY CHOLECYSTECTOMY DIALYSIS FISTULA CREATION Left SHOULDER SURGERY Social History Family History Social History Tobacco Use Smoking status: Every Day Current packs/day: 0.50 Types: Cigarettes Smokeless tobacco: Never Substance Use Topics Alcohol use: Yes Comment: Socially Family History Problem Relation Age of Onset Hypertension Maternal Grandmother Hypertension Maternal Grandfather Glaucoma Neg Hx Cataract Neg Hx Macular Degeneration Neg Hx Retinal Detachment Neg Hx Medications No current facility-administered medications for this encounter. Current Outpatient Medications Medication amLODIPine (NORVASC) 10 mg tablet atorvastatin (LIPITOR) 40 mg tablet calcium carbonate (TUMS) 200 mg calcium (500 mg) tablet,chewable carvediloL (COREG) 12.5 mg tablet DULoxetine (CYMBALTA) 20 mg delayed release capsule famotidine (PEPCID) 40 mg tablet FLOVENT HFA 110 mcg/actuation inhaler LEVEMIR FLEXPEN 100 unit/mL (3 mL) injectable pen liraglutide (VICTOZA 2-JULY) 0.6 mg/0.1 mL (18 mg/3 mL) injectable pen MULTIVITAMIN ORAL nicotine (NICODERM CQ) 21 mg/24 hr patch nortriptyline (PAMELOR) 25 mg capsule olmesartan (BENICAR) 5 mg tablet pregabalin (LYRICA) 150 mg capsule sildenafil citrate (VIAGRA) 100 mg tablet Allergies Allergies Allergen Reactions Clindamycin Gabapentin Penicillins Other (See Comments) Patient reports this occurred during childhood so he does not remember what happened Pregabalin Other reaction(s): Unsure Sertraline Other reaction(s): Unsure Review of Systems: A ten point review of systems was performed and was negative except for pertinent positives noted in the HPI Objective/Physical Exam: VS: Patient Vitals for the past 8 hrs: BP Pulse Resp Temp SpO2 12/19/23 1617 135/67 65 18 36.9 ??C (98.5 ??F) 92 % Exam: General appearance: alert, cooperative, no distress Lungs: non labored breathing Heart: regular rate and rhythm, S1, S2 normal, no murmur, click, rub or gallop Abdomen: soft Mental Status: awake and alert; oriented to person, place, and time Extremities: decreased sensation to the bilateral lower extremities, motor grossly intact to the knee, decreased plantar and dorsiflexion to the bilateral lower extremities, strong DP signal in the LLE, +2 pitting edema at the left ankle Data Review: I have independently visualized the Labs: CBC: Lab Results Component Value Date WBC 20.14 (H) 12/19/2023 RBC 2.78 (L) 12/19/2023 HGB 8.3 (L) 12/19/2023 HCT 26.2 (L) 12/19/2023 MCV 94 12/19/2023 MCH 29.9 12/19/2023 MCHC 31.7 (L) 12/19/2023 PLT 347 12/19/2023 NEUTROABS 16.32 (H) 12/19/2023 SEDRATE >100 (H) 11/07/2023 ABIs 11/08/23: Falsely elevated segmental pressures bilaterally due to arterial calcification. Left hallux brachial index demonstrated mild arterial insufficiency. Right hallux brachial index demonstarted no evidence of arterial insufficiency. Assessment: 58 y/o M, with known LLE diabetic foot wound, presenting with diabetic foot infection. Patient with DP signal and recent ABIs showing no evidence of large vessel arterial insufficiency. Recommend orthopedic evaluation for management of diabetic foot wound. Recommendations: -no vascular surgery intervention -recommend orthopedic evaluation for management of diabetic foot wound Discussed with Giovanni WYNN MD 12/19/2023 20:17 Vas Staff Pt seen/examined with resident staff. In short, 58 yo with likely pressure related heel ulcer. Non-invasive imagins show good perfusion with toe pressure in 90s. Plain films show gas in tissues with boggy feel. WBC elevated. Likely requires heel debridement. Sarabjit documented in this encounter ED Notes * Raya Austin RN - 12/20/2023 1020 EST Report called to [facility]- Patient currently in dialysis. Called dialysis to direct patient to hospital room. Tech bringing to designated room. * Ed Ramos RN - 12/20/2023 0805 EST Pt to dialysis * Gerson Youngblood - 12/19/2023 1601 EST Images from the original note were not included. Emergency Department Visit Medical Decision Making Relevant Data as of 12/20/23 0056 Sun Dec 19, 2023 In summary, patient is a 58-year-old male, who presents to the [facility] ED as a transfer from [facility] with concern for osteomyelitis versus necrotizing soft tissue infection. Patient endorses fevers at home, and significant pain to left foot and left ankle. Patient treated with vancomycin and gentamicin at outside hospital. [facility] emergency department note (external record) reviewed notable for leukocytosis to 21, hemoglobin 7.9, sodium 128, potassium 5.8 (treated with calcium and insulin). Febrile at outside hospital to 38.1. CT at outside hospital notable for subcutaneous gas and swelling to the dorsal aspect of foot. No CT evidence of osteomyelitis. Patient accepted for transfer by Dr. Carcamo of acute care surgery. Fluid resuscitated judiciously given he is dialysis dependent, nontachycardic, and normotensive. 181 WBC(!): 20.14 [DB] 1812 Hemoglobin(!): 8.3 [DB] 1854 WBC(!): 20.14 [DB] 1854 Hemoglobin(!): 8.3 [DB] 1854 Sodium(!): 132 [DB] 1854 Potassium(!): 5.5 [DB] 1854 Chloride(!): 92 [DB] 1917 Orthopedic surgery consulted, who will evaluate patient, but request vascular surgery formallyevaluate patient given diminished pulses. [DB] 191 Vascular surgery reconsulted. [DB] 2047 Vascular surgery identified DP doppler signal in left foot and recommend management by orthopedic surgery. [DB] 212 Antibiotics discussed with pharmacy, who do not believe vancomycin or gentamicin need to be redosed at this time, and recommend no further antibiotics until dialysis session tomorrow. [DB] 2136 Sed. Rate Westergren(!): 68 [DB] 2136 C-Reactive Protein(!): 187.2 [DB] 2345 Case was discussed with orthopedic surgery, who explained no plan for surgical intervention, and recommend admission to medicine, with orthopedic surgery continuing to follow. Formal orthopedic surgery recommendations pending at this time. [DB] 2357 Admitted to medicine with a plan for orthopedic surgery to continue to follow. He remains hemodynamically stable. [DB] Relevant Data User Index [DB] Gerson Youngblood Medical Decision Making Problems Addressed: Cellulitis: complicated acute illness or injury Amount and/or Complexity of Data Reviewed Labs: ordered. Decision-making details documented in ED Course. Risk OTC drugs. Decision regarding hospitalization. Final diagnoses: Cellulitis Disposition: Admitted Chief complaint: Left heel pain, erythema, swelling, fever HPI Gerson Bruner is a 58 y.o. male with ESRD on dialysis Wednesday, diabetes, neuropathy, diminished pulses to left lower extremity, for which he was referred to vascular surgery but has not yet been evaluated, TIA, who presents to [facility] as a transfer from [facility] with concern for necrotizing soft tissue infection versus osteomyelitis versus cellulitis. Patient developed left heel and left ankle pain with associated erythema, ecchymosis, and fevers 2 days ago that is progressively worsened since then. Subcutaneous gas seen on CT at outside hospital. History was provided by: Patient and review of medical record Records reviewed include:[facility] ED note reviewed Patient's pertinent PMH, FH, SH were reviewed and edited as necessary. Nursing notes reviewed. A medical screening exam was performed. Physical Exam BP (!) 142/73 Pulse 72 Temp 36.9 ??C (98.5 ??F) (Oral) Resp 18 SpO2 96% Physical Exam Uncomfortable appearing but in no acute distress Erythema to left heel, chronic appearing open wound, no palpable pulses or pulses on Doppler, with surrounding erythema Swelling to left foot Lymphangitic streaking Hematoma to lateral aspect of left heel Chronic appearing ulcer to right heel, without surrounding erythema Procedures Procedures Cosigned by Gerson Young MD at 12/20/2023 15:22 EST Associated attestation - Gerson Young MD - 12/20/2023 1522 EST I, Gerson Young MD, performed a history and exam of this patient and discussed the case with the resident. I have reviewed and edited this note, and the documentation is consistent with my findings, assessment and plan. I fully participated in the medical decision making. documented in this encounter Miscellaneous Notes * Plan of Care - Ricardo Lange - 12/24/2023 1243 EST 12/24/23 1243 Medicare IM Notice IM notice status Patient received notification verbally and in writing while in hospital. IM notice given at discharge? Yes Ricardo Lange MSW * Plan of Care - Domingo Jarrett, VIDYA - 12/24/2023 0654 EST Problem: HEMODIALYSIS Goal: Dialysis Access Maintained Outcome: Ongoing Dialysis Program Nursing Acute-Care Note Kt/V: 1.81 Net fluid removal 2liters Access: A/V Fistula Access function: Satisfactory Pre Post BP 146/77 155/80 Pulse 70 67 Temp 36.6 36.2 Weight 85.7 84.7 Method of weight: Standing Treatment Comments/Issues/concerns Mental Status Pre: aox3 Mental Status Post: aox3 Pain score: Pre: 0. Post: 0 Post dialysis system: Few strands Pt tolerated tx well, vss post hd, uf net 2 liters removed, pt repositioned q2h, primary rn updatedpost hd * Plan of Care - Alla Miguel RN - 12/23/2023 2068 EST Problem: Daily Care Plan Goals Goal: Care Plan Documentation Flowsheets (Taken 12/23/2023 7698) Area of Focus: Pain/ Comfort Goal This Shift: Pt will have adequate pain contrl this shift Data: Assumed care of this pt at 1500. Pt is AOX3 and continent of B/B. Pt is here with diabetic foot infection. Dialysis pt, goes to dialysis M/W/F. Is on IV abx. ACHS. Finger stick checks Pt needs education about his BGFS check and his diet. Action: Q1 hr check and call mitchell with in reach. Prescribed mediations administered see eMAR.PRN Dilaudid administered for pain see eMAR. Assisted OOB to the bathroom. Food/drinks provided. Dressing changed of his wound . Educated about his BGFS being so high and his diet. Response: Pt is in the bed resting/sleeping . We will CTM ALLA MIGUEL RN 12/23/2023 22:38 * Plan of Care - Ricardo Lange - 12/23/2023 1055 EST 12/23/23 1055 Home Health Referral Information Referral Status Called [place] - Patient Choice of Home Health Agency [facility], [place], Home Health Choice Form Signed? No (unable-see comments) (Verbal provided) Remind provider to place Home Health Consult order? Yes Patient's Living Situation Lives with (Spouse) [facility] will resume services upon d/c. Ricardo Lange [employer] Epic Chat preferred 12/23/2023 10:55 * Plan of Care - Mona Cope RN - 12/23/2023 0533 EST Problem: Daily Care Plan Goals Goal: Care Plan Documentation 12/22/2023 2221 by Mona Cope RN Flowsheets (Taken 12/22/2023 1920) Goal This Shift: Patient will be free from falls and injury during this shift 12/22/2023 1801 by Mona Cope RN Flowsheets (Taken 12/22/2023 1712) Goal This Shift: Patient will eat at least 50% of his meal at dinner time Data: Assumed care of patient at 15:00. Alert and oriented. Room air. Admitted with left diabetic foot ulcer. Debrided at bedside recently. Daily dressing change. Toe touch down weight bearing. Dilaudid for pain. Action: Medication given per eMAR. Maintained hourly rounding. Safety checks. Pain assessment during rounding. Response: Patient was able to sleep after pain medication administered. No falls or injury this shift. Had a bowel movement. Care ongoing. MONA COPE RN 12/22/2023 22:22 * Plan of Care - Mona Cope RN - 12/22/2023 1848 EST Problem: Daily Care Plan Goals Goal: Care Plan Documentation Flowsheets (Taken 12/22/2023 1712) Goal This Shift: Patient will eat at least 50% of his meal at dinner time Data: Patient admitted with diabetic foot ulcer. HD patient. HD today 1.3L removed. Patient very lethargic. Per Rn and family member, that's baseline. Easily arouse. Action: Discussed today's plan of care. Maintained hourly rounding. Safety checks completed. Assessfor pain. Response: Patient with daughter assistance was able to order dinner. Patient consumes greater than 80% of meal at simmer time. No apparent distress noted at this time. Bed in lock and lowest position, call light and telephone within reach MONA COPE RN 12/22/2023 18:01 * Plan of Care - Nava Timmons RN - 12/22/2023 0906 EST Problem: HEMODIALYSIS Goal: Hemodialysis Care Needs Are Met Outcome: Ongoing Goal: Dialysis Access Maintained Outcome: Ongoing Dialysis Program Nursing Acute-Care Note Kt/V: 1.72 Net fluid removal 1300 CC Access: A/V Fistula Access function: Satisfactory Pre Post BP 103/75 157/79 Pulse 87 121 Temp 36.9C 36.5 C Weight 87 KG 85.5 KG Method of weight: Standing Treatment Comments/Issues/concerns Mental Status Pre: alert and oriented Mental Status Post: alert and oriented Pain score: Pre: 0. Post: 0 Post dialysis system: Few strands Pt arrived via w/c able to move by himself Pt declines to order breakfast meal insulin dose not given Pt declines O2 he states he's getting headache when hook to O2 Seen by PA during round Pt noted with elevated HR PA informed and aware Pt had 4 hrs hd tx tolerated Sites held for 5 minutes Report given to primary RN Mike Clark Patient left unit via w/c stable * Plan of Care - Johanne Guerrero RN - 12/22/2023 0341 EST Data: Patient care assumed at 1900. Patient Aox3. Hard of hearing. On telemetry, running afib, HR 90s -130s. Denies chest pain. Daily dressing change of right heel. Continent with episode of urinary incontinence. Surgery at the bedside planned to do bed debridement. Patient took of telemetry, refused to put back on. Covering MD notified. ESRD on HD MWF. Left arm precaution, Left dialysis access. Up ad rosas with walker. Action: Medications given as ordered. Security check and hourly rounding done routinely. Debridement done at the bedside c/o surgical team. New image post debridement upload by surgery team (see flowsheet). Dim and quiet room provided. Response: Patient tolerated the procedure. Patient slept at interval. Respiratory RRR. JOHANNE GUERRERO RN 12/22/2023 3:41 Problem: Daily Care Plan Goals Goal: Care Plan Documentation Outcome: Ongoing Flowsheets Taken 12/21/2023 2354 Goal This Shift: pt will be able to sleep and rest tonight Taken 12/21/20231999 Area of Focus: Safety Problem: HEMODIALYSIS Goal: Dialysis Access Maintained Outcome: Ongoing Problem: High Fall Risk: Goal: Patient will Remain Free of Falls due to Altered Mobility Outcome: Ongoing * Plan of Care - Letha Cline RN - 12/21/2023 0527 EST Problem: Daily Care Plan Goals Goal: Care Plan Documentation Outcome: Ongoing Flowsheets (Taken 12/21/2023 0025) Area of Focus: Sleep Goal This Shift: pt will sleep comfortably this shift Data: Pt admitted with L diabetic heel ucler and new a fib. ESRD on HD - M/W/F. HR 130's on tele - 12.5mg PO metop ordered Q6H. Action: gave midnight dose of metop - HR stayed in 130's for several hours following admin. Around 0345 HR more consistently in 120's but still varying. Notified MD. Response: Pt has slept intermittently between care. LETHA CLINE RN 12/21/2023 5:27 * Plan of Care - Kaden Galeas RN - 12/20/20231952 EST Problem: Daily Care Plan Goals Goal: Care Plan Documentation Outcome: Met This Shift Flowsheets (Taken 12/20/2023 1500) Goal This Shift: Patient will be admitted comfortably to unit this shift. Data: Patient A/O x3. VS stable with tachycardia. Telemetry monitoring in use. Running Afib 130s-160s. Contact guard OOB with FWW. Able to make needs known. Rings appropriately. Action: Assumed care at approximately 1400. Medications administered per DEC. Dressing change L heel per orders. Assistance as needed. Hourly checks. Safety promoted. Call mitchell within reach. Plan of care ongoing. Response: Patient admitted comfortably to unit. Remained free from injuries and falls. KADEN GALEAS RN 12/20/2023 19:53 * Plan of Care - Kee Guerra RN - 12/20/2023 1426 EST Dialysis Program Nursing Acute-Care Note Problem: HEMODIALYSIS Goal: Dialysis Access Maintained Outcome: Ongoing Kt/V: 1.63 Net fluid removal: 1500 ml Access: A/V Fistula Access function: Satisfactory Pre Post BP 132/73 139/80 Pulse 74 131 Temp 36.9 C 37.1 C Weight 87.5 Kg 86 Kg Afib on EKG Method of weight: Recorded, unable to weigh Treatment Comments/Issues/concerns Mental Status Pre: A&Ox3 Mental Status Post: A&Ox3 Med's Given: 1500 units Epogen 1000 mg Tums 650 mg Tylenol Pain score: Pre: 0. Post: 7 Post dialysis system: Few strands Patient alexandra to reposition himself as needed Tolerated 4 hour HD treatment. Encouraged patient leave on his NC (4L O2) multiple times throughouttreatment. Patient refused to comply, eventually refusing to wear NC altogether. Sat dropped to 70-80's when O2 removed, and HR increased to 150. SPENCER Ruiz ordered an EKG. Patient found to be in Afib. Dr. Cabral to assess patient when back on floor. 1500 ml net UF with HD. Sites held post for 5 minutes each, dressing applied. Patient left with transporter via stretcher-going to [facility]. Report given to Hermann Brizuela primary RN Kaden. documented in this encounter Plan of Treatment Upcoming Encounters Date Type Department Care Team (Late st Contact Info) Description 12/06/2024 6:45 EST Treatment [facility] [address] [place], [place] [id number] Carlota Jin MD 1 [facility], [facility] [address] [place] [phone] 12/08/2024 6:45 EST Treatment [facility] [address] [place], [place] [id number] Carlota Jin MD [address] [place] [address], [facility] [address] [place] [phone] 12/11/2024 6:45 EST Treatment [facility] [address] [place], [place] [id number] Carlota Jin MD [address] [place] [address], [facility] [address] [place] [phone] 12/13/2024 6:45 EST Treatment [facility] [address] [place], [place] [id number] Carlota Jin MD [address] [place] [address] [address] [place] [phone] 12/15/2024 6:45 EST Treatment [facility] [address] [place], [place] [id number] Carlota Jin MD 1 [facility], [facility] [address] [place] [phone] 12/18/2024 6:45 EST Treatment [facility] - [place] [address] [place], [place] [id number] Carlota Jin MD [facility], [facility] [address] [place] [phone] 12/20/2024 6:45 EST Treatment [facility] - [place] [address] [place], [place] [id number] Carlota Jin MD 1 [facility], [facility] [address] [place] [phone] 12/22/2024 6:45 EST Treatment [facility] - [place] [address] [place], [place] [id number] Carlota Jin MD 1 [facility], [facility] [address] [place] [phone] 12/25/2024 6:45 EST Treatment [facility] - [place] [address] [place], [place] [id number] Carlota Jin MD [facility], [facility] [address] [place] [phone] 12/27/2024 6:45 EST Treatment [facility] - [place] [address] [place], [place] [id number] Carlota Jin MD 1 [facility], [facility] [address] [place] [phone] 12/29/2024 6:45 EST Treatment [facility] - [place] [address] [place], [place] [id number] Carlota Jin MD 1 [facility], [facility] [address] [place] [phone] 01/01/2025 6:45 EDT Treatment [facility] - [place] [address] [place], [place] [id number] Carlota Jin MD 1 [facility], [facility] [address] [place] [phone] 01/03/2025 6:45 EDT Treatment [facility] - [place] [address] [place], [place] [id number] Carlota Jin MD [address] [place] [address], [facility] [address] [place] [phone] 01/05/2025 6:45 EDT Treatment [facility] - [place] [address] [place], [place] [id number] Carlota Jin MD 1 [facility], [facility] [address] [place] [phone] 01/08/2025 6:45 EDT Treatment [facility] - [place] [address] [place], [place] [id number] Carlota Jin MD 1 [facility], [facility] [address] [place] [phone] 01/10/2025 6:45 EDT Treatment [facility] - [place] [address] [place], [place] [id number] Carlota Jin MD 1 [facility], [facility] [address] [place] [phone] 01/12/2025 6:45 EDT Treatment [facility] - [place] [address] [place], [place] [id number] Carlota Jin MD 1 [facility], [facility] [facility] [place] [phone] 01/15/2025 6:45 EDT Treatment [facility] [place] [address] [place] [address] Carlota Jin MD 1 [facility], [address] [phone] 01/17/2025 6:45 EDT Treatment [facility] [place] [address] [place], [place] [id number] Carlota Jin MD 1 [facility], [address] [phone] 01/19/2025 6:45 EDT Treatment [facility] [place] [address] [place] [address] Carlota Jin MD 1 [facility], [facility] 2 [place] [phone] 01/22/2025 6:45 EDT Treatment [facility] [place] [address] [place], [place] [id number] Carlota Jin MD 1 [facility], [facility] 2 [place] [phone] 01/24/2025 6:45 EDT Treatment [facility] [place] [address] [place], [place] [id number] Carlota Jin MD 1 [facility], [facility] 2 [place] [phone] 01/26/2025 6:45 EDT Treatment [facility] [place] [address] [place], [place] [id number] Carlota Jin MD 1 [facility], [facility] 2 [place] [phone] 01/29/2025 6:45 EDT Treatment [facility] [place] [address] [place], [place] [address] Carlota Jin MD 1 [facility], [facility] 2 [place] [phone] 01/31/2025 6:45 EDT Treatment [facility] [place] [address] [place], [place] [address] Carlota Jin MD 1 [facility], [facility] 2 [place] [phone] 02/02/2025 6:45 EDT Treatment [facility] [place] [address] [place], [place] [id number] Carlota Jin MD 1 [facility], [facility] 2 [place] [phone] 02/05/2025 6:45 EDT Treatment [facility] [place] [address] [place], [place] [address] Carlota Jin MD 1 [facility], [address] [phone] 02/07/2025 6:45 EDT Treatment [facility] [place] [address] [place], [place] [address] [phone] Carlota Jin MD 1 [facility], [address] [phone] 02/09/2025 6:45 EDT Treatment [facility] [place] [address] [place], [place] [address] Carlota Jin MD 1 [facility], [address] [phone] 02/12/2025 6:45 EDT Treatment [facility] [place] [address] [place] [address] Carlota Jin MD 1 [facility], [address] [phone] 02/14/2025 6:45 EDT Treatment [facility] [place] [address] [place], [place] [phone] Carlota Jin MD [address] [phone] 02/16/2025 6:45 EDT Treatment [facility] [place] [address] [place], [place] [address] Carlota Jin MD 1 [facility], [address] [phone] 02/19/2025 6:45 EDT Treatment [facility] [place] [address] [place] [address] Carl[address] MD [address] [facility] Level [address] [place] [phone] 02/21/2025 6:45 EDT Treatment [facility] [place] [address] [place] [address] Carlota Jin MD 1 [facility], [facility] 2 [place] [phone] Scheduled Referrals Name Type Priority Associated Diagnoses Order Schedule AMB CONS/FOLLOW UP HOME HEALTH SERVICES Outpatient Referral Urgent Diabetic foot infection ([facility]) [E11.628, L08.9] Expected: 12/26/2023 (Approximate), Expires: 12/23/2024 AMB CONS/FOLLOW UP ORTHOPEDICS - [facility] Outpatient Referral Routine/Next Available Cellulitis Diabetic foot infection ([facility]) [E11.628, L08.9] Expected: 12/31/2023 (Approximate), Expires: 12/23/2024 AMB CONS/FOLLOW UP ANTICOAGULATION (OTHER THAN WARFARIN) MANAGEMENT - [facility] Outpatient Referral Routine/Next Available Atrial fibrillation with RVR ([facility]) Expected: 12/31/2023 (Approximate), Expires: 12/23/2024 AMB CONS/FOLLOW UP ENDOCRINOLOGY Outpatient Referral Routine/Next Available Diabetic foot infection ([facility]) [E11.628, L08.9] Type 2 diabetes mellitus with chronic kidney disease on chronic dialysis, with long-term current use of insulin ([facility]) [E11.22, N18.6, Z99.2, Z79.4] ESRD (end stage renal disease) ([facility]) [N18.6] Expected: 01/24/2024 (Approximate), Expires: 12/23/2024 documented as of this encounter Procedures Procedure Name Priority Date/Time Associated Diagnosis Comments ECG REPORT - SCANNED 12/29/2023 11:25 EST LDL, DIRECT Today 12/24/2023 12:33 EST COMPLETE BLOOD COUNT Routine 12/24/2023 12:33 EST PHOSPHORUS Routine 12/24/2023 12:33 EST MAGNESIUM Routine 12/24/2023 12:33 EST LIPID PROFILE (INCLUDES CHOLESTEROL, TRIGLYCERIDES, HDL, LDL) Add-On 12/24/2023 12:33 EST ELECTROLYTES Routine 12/24/2023 12:33 EST POCT GLUCOSE, INTERFACED Routine 12/24/2023 11:53 EST HEMODIALYSIS Routine 12/24/2023 5:34 EST ESRD (end stage renal disease) ([facility]) [N18.6] POCT GLUCOSE, INTERFACED Routine 12/23/2023 20:52 EST POCT GLUCOSE, INTERFACED Routine 12/23/2023 17:59 EST POCT GLUCOSE, INTERFACED Routine 12/23/2023 14:54 EST COMPLETE BLOOD COUNT Routine 12/23/2023 12:11 EST PHOSPHORUS Routine 12/23/2023 12:11 EST MAGNESIUM Routine 12/23/2023 12:11 EST ELECTROLYTES Routine 12/23/2023 12:11 EST POCT GLUCOSE, INTERFACED Routine 12/23/2023 8:22 EST POCT GLUCOSE, INTERFACED Routine 12/22/2023 18:02 EST ECG REPORT - SCANNED 12/22/2023 13:07 EST POCT GLUCOSE, INTERFACED Routine 12/22/2023 12:28 EST POCT GLUCOSE, INTERFACED Routine 12/22/2023 8:04 EST COMPLETE BLOOD COUNT Routine 12/22/2023 7:31 EST PHOSPHORUS Routine 12/22/2023 7:31 EST MAGNESIUM Routine 12/22/2023 7:31 EST ELECTROLYTES Routine 12/22/2023 7:31 EST HEMODIALYSIS Routine 12/22/2023 5:53 EST ESRD (end stage renal disease) ([facility]) [N18.6] ANAEROBE CULTURE/SMEAR(INC. AEROBES), OTHER STAT 12/22/2023 1:08 EST POCT GLUCOSE, INTERFACED Routine 12/21/2023 17:20 EST TRANSTHORACIC ECHO (TTE) COMPLETE Routine 12/21/2023 14:27 EST COMPLETE BLOOD COUNT Routine 12/21/2023 9:42 EST PHOSPHORUS Routine 12/21/2023 9:42 EST MAGNESIUM Routine 12/21/2023 9:42 EST ELECTROLYTES Add-On 12/21/2023 9:42 EST POCT GLUCOSE, INTERFACED Routine 12/21/2023 8:57 EST POCT GLUCOSE, INTERFACED Routine 12/20/2023 21:26 EST WOUND EVALUATION AND TREAT Routine 12/20/2023 19:53 EST POCT GLUCOSE, INTERFACED Routine 12/20/2023 18:50 EST POCT GLUCOSE, INTERFACED Routine 12/20/2023 14:34 EST EKG 12-LEAD Routine 12/20/2023 13:41 EST POCT GLUCOSE, INTERFACED Routine 12/20/2023 12:38 EST POCT GLUCOSE, INTERFACED Routine 12/20/2023 10:39 EST BLOOD GASES, VENOUS Routine 12/20/2023 7 :52 EST POCT GLUCOSE, INTERFACED Routine 12/20/2023 7:28 EST HEMODIALYSIS Routine 12/20/2023 7:25 EST ESRD (end stage renal disease) ([facility]) [N18.6] ZZCOVID-19 TEST [facility] PCR Today 12/20/2023 6:22 EST COVID-19 TESTING Routine 12/20/2023 6:22 EST ZZHN INFLUENZA A AND B, RSV PCR Routine 12/20/2023 6:22 EST HOLD GREEN TOP Routine 12/20/2023 5:49 EST COMPLETE BLOOD COUNT Routine 12/20/2023 5:49 EST TSH Add-On 12/20/2023 5:49 EST PHOSPHORUS Add-On 12/20/2023 5:49 EST MAGNESIUM Routine 12/20/2023 5:49 EST ALBUMIN Add-On 12/20/2023 5:49 EST VANCOMYCIN, RANDOM Add-On 12/20/2023 5: 49 EST BASIC METABOLIC PANEL (BMP) Routine 12/20/2023 5:49 EST XR CHEST PORTABLE 1 VIEW STAT 12/20/2023 5:23 EST URINE CHEMICAL (DIP) & SEDIMENT (MICRO) WITH REFLEX TO CULTURE STAT 12/20/2023 0:10 EST BACTERIAL CULTURE, URINE Today 12/20/2023 0:10 EST XR FOOT LEFT 3 OR MORE VIEWS STAT 12/19/2023 23:00 EST LACTIC ACID WITH REFLEX - USE FOR INITIAL SEPSIS EVALUATION STAT 12/19/2023 17:49 EST BACTERIAL CULTURE, BLOOD STAT 12/19/2023 17:49 EST BACTERIAL CULTURE, BLOOD STAT 12/19/2023 17:49 EST SED RATE STAT Add-on 12/19/2023 17:49 EST COMPLETE BLOOD COUNT AND DIFFERENTIAL STAT 12/19/2023 17:49 EST C REACTIVE PROTEIN STAT Add-on 12/19/2023 17 :49 EST COMPREHENSIVE METABOLIC PANEL (CMP) STAT 12/19/2023 17:[address] OUTSIDE IMAGES LEFT LOWER EXTREMITY STAT 12/19/2023 13:09 EST XR OUTSIDE IMAGES CHEST STAT 12/17/2023 8:32 EST XR OUTSIDE IMAGES LEFT LOWER EXTREMITY STAT 12/17/2023 8:31 EST documented in this encounter Results * ECG REPORT - SCANNED (12/29/2023 11:25 EST) 12/29/2023 11:2 5 EST us Scan 2 Traffic Manager PROCEDURE/MINOR SURGICAL OR DERABLES Final Result * LDL, DIRECT (12/24/2023 12:33 EST) LDL, Direct 37 <160 mg/dL 12/24/2023 16:32 [facility] Comment: LDL, Direct Reference Ranges: Optimal: Less than 100 mg/dL Above Optimal: 100-129 mg/dL Borderline High: 130-159 mg/dL High: 160-189 mg/dL Very High: Greater than or equal to 190 mg/dL Blood VENOUS BLOOD / Unknown Venipuncture / Unknown 12/24/2023 12:33 EST 12/24/2023 13:19 EST Sourav Kilgore PA-C CHEMISTRY & BLOOD GAS STEF [place] Final Result [facility] [address] [place] [address] * (ABNORMAL) LIPID PROFILE (INCLUDES CHOLESTEROL, TRIGLYCERIDES, HDL, LDL) (12/24/2023 12:33 EST) Pathologist [facility] Cholesterol 94 <200 mg/dL 12/24/2023 15:22 [facility] Comment:Note that therapeuti c goals will differ between patients based on cardiac risk factors and current medical therapy. HDL 40 >=40 mg/dl 12/24/2023 15:22 [facility] Comment:Note that therapeuti c goals will differ between patients based on cardiac risk factors and current medical therapy. LDL, Calculated <20 <160 mg/dL 15:22 [facility] Comment: Note that therapeutic goals will differ between patients based on cardiac risk factors and current medical therapy. Calculated LDL invalid (<20 mg/dL) Direct LDL measurement added by reflex. Triglyceride 217(H) <=150 mg/dL 12/24/2023 15:22 [facility] Comment:Note that therapeuti c goals will differ between patients based on cardiac risk factors and current medical therapy. Chol/HDL Ratio 2.4 See Note 12/24/2023 15:22 [facility] Comment:No reference range h as been established for CHOL/HDL ratio. Non HDL Cholesterol 54 <160 mg/dL 12/24/2023 15:22 [facility] Comment:Note that therapeuti c goals will differ between patients based on cardiac risk factors and current medical therapy. Blood VENOUS BLOOD / Unknown Venipuncture / Unknown 12/24/2023 12:33 EST 12/24/2023 13:19 EST Sourav Kilgore PA-C CHEMISTRY & BLOOD GAS ORDE VASYL Final Result Performing Organization Address [facility]/ZIP Co de Phone Number [facility] [address] [place] [address] * ELECTROLYTES (12/24/2023 12:33 EST) Sodium 139 136 - 145 mmol/L 12/24/2023 13:58 [facility] Potassium 3.8 3.5 - 5.0 mmol/L 12/24/2023 13:58 [facility] Chloride 99 96 - 110 mmol/L 12/24/2023 13:58 [facility] CO2 Total 30 22 - 32 mmol/L 12/24/2023 13:58 [facility] Anion Gap 10 5 - 14 mmol/L 12/24/2023 13:58 [facility] Blood VENOUS BLOOD / Unknown Venipuncture / Unknown 12/24/2023 12:33 EST 12/24/2023 13:19 EST Melina Garza MD MPH CHEMISTRY & BLOOD GAS O RDERABLES Final Result Performing Organization Address [facility] Co de Phone Number [facility] [address] [place] [address] * PHOSPHORUS (12/24/2023 12:33 EST) Phosphorus 2.8 2.5 - 4.5 mg/dL 12/24/2023 13:58 [facility] Blood VENOUS BLOOD / Unknown Venipuncture / Unknown 12/24/2023 12:33 EST 12/24/2023 13:19 EST us Sha LARSON CHEMISTRY & BLOOD GA S ORDERABLES Final Result Performing Organization Address City/[facility] Co de Phone Number [facility] [address] [place], [place] [phone] * (ABNORMAL) COMPLETE BLOOD COUNT (12/24/2023 12:33 EST) WBC 12.82(H) 4.00 - 10.40 K/cmm 12/24/2023 13:31 [facility] RBC 2.64(L) 4.36 - 5.78 M/cmm 12/24/2023 13:31 [facility] Hemoglobin 7.8(L) 13.8 - 17.3 g/dL 12/24/2023 13:31 [facility] HCT 24.2(L) 39.5 - 50.2 % 12/24/2023 13:31 [facility] MCV 92 81 - 95 fL 12/24/2023 13:31 [facility] MCH 29.5 27.6 - 33.0 pg 12/24/2023 13:31 [facility] MCHC 32.2(L) 32.8 - 36.4 g/dL 12/24/2023 13:31 [facility] RDW-CV 12.9 <14.2 % 12/24/2023 13:31 [facility] RDW-SD 42.8 <46.0 fl 12/24/2023 13:31 [facility] PLT 376 141 - 377 K/cmm 12/24/2023 13:31 [facility] MPV 12.1 9.5 - 12.7 fL 12/24/2023 13:31 [facility] Blood VENOUS BLOOD / Unknown Venipuncture / Unknown 12/24/2023 12:33 EST 12/24/2023 13:18 EST us Jacob Patel MD HEMATOLOGY & PF4 ORDERABLES Fi nal Result Performing Organization Address [facility]/ZIP Co de Phone Number [facility] [address] [place], [place] [phone] * MAGNESIUM (12/24/2023 12:33 EST) Pathologist [facility] Magnesium 1.9 1.7 - 2.8 mg/dL 12/24/2023 13:58 EST [facility] Blood VENOUS BLOOD / Unknown Venipuncture / Unknown 12/24/2023 12:33 EST 12/24/2023 13:19 EST us Jacob Patel MD CHEMISTRY & BLOOD GAS ORDERABL ES Final Result Performing Organization Address [facility] Co de Phone Number [facility] [address] [place] [address] * (ABNORMAL) POCT GLUCOSE, INTERFACED (12/24/2023 11:53 EST) [facility] Glucose, POC 161(H) 70 - 100 mg/dL 12/25/2023 22:39 EST [facility] HN LAB POC COMMENT (GLUCOSE) Test Performed by Nursing Services 12/25/2023 22:39 EST [facility] Blood CAPILLARY BLOOD / Unknown 12/24/2023 11:53 EST 12/25/2023 22:39 EST us Richy Alfonso MD POINT OF CARE TEST ORDERABLES Fi nal Result Performing Organization Address [facility]/ZIP Co de Phone Number [facility] [address] [place] [address] * (ABNORMAL) POCT GLUCOSE, INTERFACED (12/23/2023 20:52 EST) Pathologist [facility] Glucose, POC 207(H) 70 - 100 mg/dL 12/23/2023 20:53 EST [facility] HN LAB POC COMMENT (GLUCOSE) Test Performed by Nursing Services 12/23/2023 20:53 EST [facility] Blood CAPILLARY BLOOD / Unknown 12/23/2023 20:52 EST 12/23/2023 20:53 EST Jacob Patel MD POINT OF CARE TEST ORDERABLES Final Result Performing Organization Address City/[facility]/ZIP Co de Phone Number [facility] [address] [place] [address] * (ABNORMAL) POCT GLUCOSE, INTERFACED (12/23/2023 17:59 EST) Glucose, POC 285(H) 70 - 100 mg/dL 12/23/2023 18:00 EST [facility] HN LAB POC COMMENT (GLUCOSE) Test Performed by Nursing Services 12/23/2023 18:00 EST [facility] Blood CAPILLARY BLOOD / Unknown 12/23/2023 17:59 EST 12/23/2023 18:00 EST Jacob Patel MD POINT OF CARE TEST ORDERABLES Final Result Performing Organization Address City/[facility]/ZIP Co de Phone Number [facility] [address] [place] [address] * (ABNORMAL) POCT GLUCOSE, INTERFACED (12/23/2023 14:54 EST) Glucose, POC 340(H) 70 - 100 mg/dL 12/23/2023 14:55 EST [facility] HN LAB POC COMMENT (GLUCOSE) Test Performed by Nursing Services 12/23/2023 14:55 EST [facility] Blood CAPILLARY BLOOD / Unknown 12/23/2023 14:54 EST 12/23/2023 14:55 EST Jacob Patel MD POINT OF CARE TEST ORDERABLES Final Result Performing Organization Address City/[facility]/ZIP Co de Phone Number [facility] [address] [place] [address] * (ABNORMAL) ELECTROLYTES (12/23/2023 12:11 EST) Sodium 135(L) 136 - 145 mmol/L 12/23/2023 13:20 [facility] Potassium 4.5 3.5 - 5.0 mmol/L 12/23/2023 13:20 [facility] Chloride 94(L) 96 - 110 mmol/L 12/23/2023 13:20 [facility] CO2 Total 27 22 - 32 mmol/L 12/23/2023 13:20 [facility] Anion Gap 14 5 - 14 mmol/L 12/23/2023 13:20 [facility] Blood VENOUS BLOOD / Unknown Venipuncture / Unknown 12/23/2023 12:11 EST 12/23/2023 12:55 EST Melina Garza MD MPH CHEMISTRY & BLOOD GAS O RDERABLES Final Result Performing Organization Address City/[facility]/ZIP Co de Phone Number [facility] [address] [place] [address] * (ABNORMAL) PHOSPHORUS (12/23/2023 12:11 EST) Pathologist [facility] Phosphorus 4.6(H) 2.5 - 4.5 mg/dL 12/23/2023 13:20 [facility] Blood VENOUS BLOOD / Unknown Venipuncture / Unknown 12/23/2023 12:11 EST 12/23/2023 12:55 EST us Sha HUBBARD CHEMISTRY & BLOOD GA S ORDERABLES Final Result [facility] [address] [place] [address] * (ABNORMAL) COMPLETE BLOOD COUNT (12/23/2023 12:11 EST) Pathologist [facility] WBC 14.45(H) 4.00 - 10.40 K/cmm 12/23/2023 12:58 [facility] RBC 2.59(L) 4.36 - 5.78 M/cmm 12/23/2023 12:58 [facility] Hemoglobin 7.6(L) 13.8 - 17.3 g/dL 12/23/2023 12:58 [facility] HCT 23.7(L) 39.5 - 50.2 % 12/23/2023 12:58 [facility] MCV 92 81 - 95 fL 12/23/2023 12:58 [facility] MCH 29.3 27.6 - 33.0 pg 12/23/2023 12:58 [facility] MCHC 32.1(L) 32.8 - 36.4 g/dL 12/23/2023 12:58 [facility] RDW-CV 12.8 <14.2 % 12/23/2023 12:58 [facility] RDW-SD 42.0 <46.0 fl 12/23/2023 12:58 [facility] PLT 385(H) 141 - 377 K/cmm 12/23/2023 12:58 [facility] MPV 12.0 9.5 - 12.7 fL 12/23/2023 12:58 [facility] Blood VENOUS BLOOD / Unknown Venipuncture / Unknown 12/23/2023 12:11 EST 12/23/2023 12:45 EST us Jacob Patel MD HEMATOLOGY & PF4 ORDERABLES Fi nal Result [facility] [address] [place] [phone] * MAGNESIUM (12/23/2023 12:11 EST) Magnesium 2.3 1.7 - 2.8 mg/dL 12/23/2023 13:20 [facility] Blood VENOUS BLOOD / Unknown Venipuncture / Unknown 12/23/2023 12:11 EST 12/23/2023 12:55 EST us Jacob Patel MD CHEMISTRY & BLOOD GAS ORDERABL ES Final Result [facility] [address] [place] [address] * (ABNORMAL) POCT GLUCOSE, INTERFACED (12/23/2023 8:22 EST) Glucose, POC 289(H) 70 - 100 mg/dL 12/23/2023 8:25 EST [facility] HN LAB POC COMMENT (GLUCOSE) Test Performed by Nursing Services 12/23/2023 8:25 EST [facility] Blood CAPILLARY BLOOD / Unknown 12/23/2023 8:22 EST 12/23/2023 8:25 EST us Jacob Patel MD POINT OF CARE TEST ORDERABLES Final Result Performing Organization Address City/[facility]/ZIP Co de Phone Number [facility] [address] [place] [phone] * (ABNORMAL) POCT GLUCOSE, INTERFACED (12/22/2023 18:02 EST) Glucose, POC 174(H) 70 - 100 mg/dL 12/22/2023 18:03 EST [facility] HN LAB POC COMMENT (GLUCOSE) Test Performed by Nursing Services 12/22/2023 18:03 EST [facility] Blood CAPILLARY BLOOD / Unknown 12/22/2023 18:02 EST 12/22/2023 18:03 EST Jacob Patel MD POINT OF CARE TEST ORDERABLES Final Result Performing Organization Address City/[facility]/ZIP Co de Phone Number [facility] [address] [place] [phone] * ECG REPORT - SCANNED (12/22/2023 13:07 EST) 12/22/2023 13:0 7 EST us Scan 2 Traffic Manager PROCEDURE/MINOR SURGICAL OR DERABLES Final Result * (ABNORMAL) POCT GLUCOSE, INTERFACED (12/22/2023 12:28 EST) Glucose, POC 155(H) 70 - 100 mg/dL 12/22/2023 12:29 EST [facility] HN LAB POC COMMENT (GLUCOSE) Test Performed by Nursing Services 12/22/2023 12:29 EST [facility] Blood CAPILLARY BLOOD / Unknown 12/22/2023 12:28 EST 12/22/2023 12:29 EST Jacob Patel MD POINT OF CARE TEST ORDERABLES Final Result Performing Organization Address City/[facility]/ZIP Co de Phone Number [facility] [address] [place] [address] * (ABNORMAL) POCT GLUCOSE, INTERFACED (12/22/2023 8:04 EST) Glucose, POC 276(H) 70 - 100 mg/dL 12/22/2023 8:05 EST [facility] HN LAB POC COMMENT (GLUCOSE) Test Performed by Nursing Services 12/22/2023 8:05 EST [facility] Blood CAPILLARY BLOOD / Unknown 12/22/2023 8:04 EST 12/22/2023 8:05 EST Jacob Patel MD POINT OF CARE TEST ORDERABLES Final Result Performing Organization Address City/[facility]/ZIP Co de Phone Number [facility] [address] [place] [address] * (ABNORMAL) ELECTROLYTES (12/22/2023 7:31 EST) Sodium 131(L) 136 - 145 mmol/L 12/22/2023 8:15 EST [facility] Potassium 5.7(H) 3.5 - 5.0 mmol/L 12/22/2023 8:15 EST [facility] Chloride 95(L) 96 - 110 mmol/L 12/22/2023 8:15 [facility] CO2 Total 22 22 - 32 mmol/L 12/22/2023 8:15 [facility] Anion Gap 14 5 - 14 mmol/L 12/22/2023 8:15 [facility] Blood VENOUS BLOOD / Unknown Venipuncture / Unknown 12/22/2023 7:31 EST 12/22/2023 7:47 EST Melina Garza MD MPH CHEMISTRY & BLOOD GAS O RDERABLES Final Result Performing Organization Address City/[facility]/ZIP Co de Phone Number [facility] [address] [place] [address] * (ABNORMAL) PHOSPHORUS (12/22/2023 7:31 EST) Phosphorus 6.3(H) 2.5 - 4.5 mg/dL 12/22/2023 8:15 [facility] Blood VENOUS BLOOD / Unknown Venipuncture / Unknown 12/22/2023 7:31 EST 12/22/2023 7:[address] [facility] CHEMISTRY & BLOOD GA S ORDERABLES Final Result Performing Organization Address [facility] Co de Phone Number [facility] [address] [place] [address] * (ABNORMAL) COMPLETE BLOOD COUNT (12/22/2023 7:31 EST) WBC 18.19(H) 4.00 - 10.40 K/cmm 12/22/2023 7:57 [facility] RBC 2.75(L) 4.36 - 5.78 M/cmm 12/22/2023 7:57 [facility] Hemoglobin 8.2(L) 13.8 - 17.3 g/dL 12/22/2023 7:57 [facility] HCT 24.9(L) 39.5 - 50.2 % 12/22/2023 7:57 [facility] MCV 91 81 - 95 fL 12/22/2023 7:57 [facility] MCH 29.8 27.6 - 33.0 pg 12/22/2023 7:57 [facility] MCHC 32.9 32.8 - 36.4 g/dL 12/22/2023 7:57 [facility] RDW-CV 13.0 <14.2 % 12/22/2023 7:57 [facility] RDW-SD 42.7 <46.0 fl 12/22/2023 7:57 [facility] PLT 366 141 - 377 K/cmm 12/22/2023 7:57 [facility] MPV 12.3 9.5 - 12.7 fL 12/22/2023 7:57 [facility] Blood VENOUS BLOOD / Unknown Venipuncture / Unknown 12/22/2023 7:31 EST 12/22/2023 7:44 EST Jacob Patel MD HEMATOLOGY & PF4 ORDERABLES Fi nal Result Performing Organization Address City/[facility]/ZIP Co de Phone Number [facility] [address] [place] [phone] * MAGNESIUM (12/22/2023 7:31 EST) Magnesium 2.5 1.7 - 2.8 mg/dL 12/22/2023 8:15 EST [facility] Blood VENOUS BLOOD / Unknown Venipuncture / Unknown 12/22/2023 7:31 EST 12/22/2023 7:47 EST Jacob Patel MD CHEMISTRY & BLOOD GAS ORDERABL ES Final Result Performing Organization Address [facility]/ZIP Co de Phone Number [facility] [address] [place] [address] * (ABNORMAL) ANAEROBE CULTURE/SMEAR(INC. AEROBES), OTHER (12/22/2023 1:08 EST) Organism ID Moderate Enterococcus faecalis(A) VITEK SUSCEPTIBILITY 4 14:32 [facility] Organism ID Moderate Streptococcus anginosus (S. anginosus group)(A) VITEK SUSCEPTIBILITY 4 14:32 [facility] Organism ID Few Streptococcus agalactiae (Group B)(A) VITEK SUSCEPTIBILITY 4 14:32 [facility] Comment:Penicillin and ampic illin are the drugs of choice for treating beta- hemolytic Streptococcal infections. Susceptibility testing will not be performed. Organism ID Few Corynebacterium striatum(A) VITEK SUSCEPTIBILITY 4 14:32 [facility] Organism ID Rare Staphylococcus aureus(A) VITEK SUSCEPTIBILITY 4 14:32 [facility] Comment: Susceptible to nafcillin, cephalosporins and other beta lactam antibiotics (mecA gene product absent). The S. aureus isolate identified has a vancomycin ODILIA greater than or equal to 2. There is concern for clinical failure in patients with S.aureus isolates that have a vancomycin ODILIA of greater than or equal to 2. For these isolates, alternative antimicrobials need to be considered. Infectious Disease consultation is encouraged. Organism ID One [place] Only Corynebacterium amycolatum(A) VITEK SUSCEPTIBILITY 4 14:32 [facility] Organism ID Few Bacteroides fragilis group(A) VITEK SUSCEPTIBILITY 4 14:32 [facility] Organism ID Few Finegoldia magna(A) VITEK SUSCEPTIBILITY 4 14:32 [facility] Smear Moderate Neutrophils Present(A) 4 14:32 [facility] Smear Many Mixed gram positive and gram negative organisms(A) 4 14:32 [facility] Tissue HEEL STRUCTURE / Unknown Collection, Other / Unknown 12/22/2023 1:08 EST 12/22/2023 1:23 EST Narrative Organism Antibiotic Method Susceptibility Enterococcus faecalis Ampicillin VITEK SUSCEPTIBILIT Y <=2 ug/mL: Susceptible Enterococcus faecalis Vancomycin VITEK SUSCEPTIBILIT Y 1 ug/mL: Susceptible Staphylococcus aureus Cefazolin VITEK SUSCEPTIBILIT Y Deduced Susceptible Staphylococcus aureus Clindamycin VITEK SUSCEPTIBILIT Y 0.25 ug/mL: Susceptible Staphylococcus aureus Doxycycline VITEK SUSCEPTIBILIT Y <=0.5 ug/mL: Susceptible Staphylococcus aureus Erythromycin VITEK SUSCEPTIBILIT Y >=8 ug/mL: Resistant Staphylococcus aureus Oxacillin VITEK SUSCEPTIBILIT Y 0.5 ug/mL: Susceptible Staphylococcus aureus Trimethoprim-Sulfa me thoxazole VITEK SUSCEPTIBILITY <=10 ug/mL: Susceptible Staphylococcus aureus Vancomycin VITEK SUSCEPTIBILIT Y 2 ug/mL: Susceptible us Chelle Odell MD MICROBIOLOGY - GENERAL ORDERABLE S Final Result Performing Organization Address City/[facility]/ZIP Co de Phone Number [facility] [address] [place] [address] * (ABNORMAL) POCT GLUCOSE, INTERFACED (12/21/2023 17:20 EST) [facility] Glucose, POC 322(H) 70 - 100 mg/dL 12/21/2023 17:22 EST [facility] HN LAB POC COMMENT (GLUCOSE) Test Performed by Nursing Services 12/21/2023 17:22 EST [facility] Blood CAPILLARY BLOOD / Unknown 12/21/2023 17:20 EST 12/21/2023 17:21 EST us Jacob Patel MD POINT OF CARE TEST ORDERABLES Final Result Performing Organization Address City/[facility] Co de Phone Number [facility] [address] [place] [address] * TRANSTHORACIC ECHO (TTE) COMPLETE W/DOPPLER W/CF NO CONTRAST (12/21/2023 14:27 EST) Pathologist [facility] LV ID, ED, PLAX 4.2 3.5 - 6.0 cm [facility]INT [facility] LV ID, ES, PLAX 3.1 2.1 - 4.0 cm [facility] LV PW thickness, ED, PLAX 1.6 0.6 - 1.1 cm [facility]INT [facility] LV ejection fraction, 1-p A4C 54 % [facility] PO[facility] T [facility] C[facility] LV end-diastolic volume, 1-p A4C 125 ml [facility] POINT [facility] CARE LV end diastolic volume 1-p A2C 120 ml [facility] POINT OF CARE EF 47 % [facility] PO[facility] T [facility] C[facility] LVOT ID, S 2.0 cm [facility] POI NT OF CARE LVOT area 3.1 cm2 [facility] POIN T OF CARE LVOT peak velocity, S 1.2 m/s [facility] POINT OF CARE LVOT mean velocity, S 0.8 m/s [facility] POINT OF CARE LVOT VTI, S 17.5 cm [facility] PO INT OF CARE AV LVOT peak gradient 6 mmHg [facility] POINT OF CARE LVOT mean gradient, S 3 mmHg [facility]INT [facility]ARE Stroke volume (SV), LVOT DP 55 ml [facility]INT OF CARE Stroke index (SV/bsa) LVOT DP 27.0 ml/m2 [facility] LV Diastolic Volume 79 mL [facility] LV Systolic Volume 38 mL [facility] POINT OF CARE LVIDD BY MMODE 4.2 cm [facility] LA ID, A-P, ES 4.1 cm [facility] LA Atrial Area A4C 27.9 cm2 [facility] LA Atrial Area A2C 27.9 cm2 [facility] POINT OF CARE LA volumes, ES, A4C 84.0 ml [facility] POINT OF CARE LA volume/bsa, ES, A4C 41.0 ml/m2 [facility] POINT [facility] CARE LA volume, ES, BP 108.0 ml [facility] POINT OF CARE LA volume/bsa, ES, BP 53.0 ml/m2 [facility] POINT OF C[facility] LA/aortic root ratio 1 [facility]INT [facility] LA Atrial Length A4C 7.0 cm [facility] POINT [facility] LA Atrial Length A2C 6.3 cm [facility]INT [facility] Aortic root ID 4.1 cm [facility] POINT OF CARE Ascending aorta ID, a-p 3.2 cm [facility] POINT OF CARE Pulmonic valve mean velocity, S 1 cm/s [facility] POINT OF CARE Interventricular Septum to Posterior Wall Thickness Ratio 0.9 [facility] P OINT OF CARE Anatomical Region Laterality Modality Ultrasound Narrative 12/21/2023 14:35 EST ?Left??Ventricle: The left ventricular cavity was normal in size. Left ventricular systolic function was low normal with an ejection fraction of 50-55%. Left ventricular wall motion was normal; there were no regional wall motion abnormalities. ?Right??Ventricle: The right ventricular cavity was normal in size. Right ventricular systolic function was normal. Left Ventricle The left ventricular cavity was normal in size. Left ventricular systolic function was low normal with an ejection fraction of 50-55%. The study was not technically sufficient to allow evaluation of left ventricular diastolic dysfunction due to atrial fibrillation. There was moderate hypertrophy of the left ventricle. Left ventricular wall motion was normal; there were no regional wall motion abnormalities. Right Ventricle The right ventricular cavity was normal in size. Right ventricular systolic function was normal. Right ventricular wall thickness was normal. Left Atrium Left atrial cavity was moderately dilated. Right Atrium The right atrium was normal in size. IVC/SVC The inferior vena cava demonstrated a diameter of <=21 mm and collapses >50%; therefore, the right atrial pressure is estimated at 0-5 mmHg. Mitral Valve Mitral valve structure was normal. There was no significant mitral valve stenosis or regurgitation. Tricuspid Valve Tricuspid valve structure was normal. There was no significant tricuspid valve regurgitation. There was no tricuspid valve stenosis. Aortic Valve The aortic valve structure was trileaflet. The aortic leaflets were mildly thickened. There was no aortic valve stenosis. There was no aortic valve regurgitation. Pulmonic Valve Pulmonic valve structure was grossly normal. There was no significant pulmonic valve regurgitation. There was no pulmonic valve stenosis. Ascending Aorta The aorta was normal in size. Pericardium There was no pericardial effusion. Pulmonic Artery Unable to assess PA pressure. Study Details Study status: Routine. Transthoracic echocardiography. M-Mode, complete 2D, complete spectral Doppler, and color Doppler.The study was interpreted by [facility]. Pertinent images and digital data are archived for permanent storage and are available for subsequent review. Scanning was performed from the apical, parasternal, subcostal and suprasternal acoustic windows. Overall the study quality was good. The study was difficult due to patient clinical status. Images were obtained using cardiac ultrasound machine EPIQ #21. us [employer] CARDIAC ECHO ORDERAB LES Final Result * (ABNORMAL) ELECTROLYTES (12/21/2023 9:42 EST) Sodium 132(L) 136 - 145 mmol/L 12/21/2023 12:50 [facility] Potassium 5.5(H) 3.5 - 5.0 mmol/L 12/21/2023 12:50 [facility] Chloride 92(L) 96 - 110 mmol/L 12/21/2023 12:50 [facility] CO2 Total 26 22 - 32 mmol/L 12/21/2023 12:50 [facility] Anion Gap 14 5 - 14 mmol/L 12/21/2023 12:50 [facility] Blood VENOUS BLOOD / Unknown Venipuncture / Unknown 12/21/2023 9:42 EST 12/21/2023 10:30 EST us Melina Garza MD MPH CHEMISTRY & BLOOD GAS O RDERABLES Final Result [facility] [address] [place] [address] * (ABNORMAL) COMPLETE BLOOD COUNT (12/21/2023 9:42 EST) Pathologist [facility] WBC 18.21(H) 4.00 - 10.40 K/cmm 12/21/2023 10:31 [facility] RBC 2.68(L) 4.36 - 5.78 M/cmm 12/21/2023 10:31 [facility] Hemoglobin 8.0(L) 13.8 - 17.3 g/dL 12/21/2023 10:31 [facility] HCT 24.7(L) 39.5 - 50.2 % 12/21/2023 10:31 [facility] MCV 92 81 - 95 fL 12/21/2023 10:31 [facility] MCH 29.9 27.6 - 33.0 pg 12/21/2023 10:31 [facility] MCHC 32.4(L) 32.8 - 36.4 g/dL 12/21/2023 10:31 [facility] RDW-CV 13.2 <14.2 % 12/21/2023 10:31 [facility] RDW-SD 44.2 <46.0 fl 12/21/2023 10:31 [facility] PLT 340 141 - 377 K/cmm 12/21/2023 10:31 [facility] MPV 12.2 9.5 - 12.7 fL 12/21/2023 10:31 [facility] Blood VENOUS BLOOD / Unknown Venipuncture / Unknown 12/21/2023 9:42 EST 12/21/2023 10:24 EST Jacob Patel MD HEMATOLOGY & PF4 ORDERABLES Fi nal Result Performing Organization Address City/[facility]/ZIP Co de Phone Number [facility] [address] [place] [address] * MAGNESIUM (12/21/2023 9:42 EST) Magnesium 2.0 1.7 - 2.8 mg/dL 12/21/2023 10:59 EST [facility] Blood VENOUS BLOOD / Unknown Venipuncture / Unknown 12/21/2023 9:42 EST 12/21/2023 10:30 EST Jacob Patel MD CHEMISTRY & BLOOD GAS ORDERABL ES Final Result Performing Organization Address City/[facility]/ZIP Co de Phone Number [facility] [address] [place] [address] * PHOSPHORUS (12/21/2023 9:42 EST) Phosphorus 4.5 2.5 - 4.5 mg/dL 12/21/2023 10:59 EST [facility] Blood VENOUS BLOOD / Unknown Venipuncture / Unknown 12/21/2023 9:42 EST 12/21/2023 10:30 EST Sha LARSON CHEMISTRY & BLOOD GA S ORDERABLES Final Result [facility] [address] [place] [address] * (ABNORMAL) POCT GLUCOSE, INTERFACED (12/21/2023 8:57 EST) Glucose, POC 299(H) 70 - 100 mg/dL 12/21/2023 8:58 EST [facility] HN LAB POC COMMENT (GLUCOSE) Test Performed by Nursing Services 12/21/2023 8:58 EST [facility] Blood CAPILLARY BLOOD / Unknown 12/21/2023 8:57 EST 12/21/2023 8:58 EST Jacob Patel MD POINT OF CARE TEST ORDERABLES Final Result Performing Organization Address City/[facility]/ZIP Co de Phone Number [facility] [address] [place] [address] * (ABNORMAL) POCT GLUCOSE, INTERFACED (12/20/2023 21:26 EST) Glucose, POC 399(H) 70 - 100 mg/dL 12/20/2023 21:27 EST [facility] HN LAB POC COMMENT (GLUCOSE) Test Performed by Nursing Services 12/20/2023 21:27 EST [facility] Blood CAPILLARY BLOOD / Unknown 12/20/2023 21:26 EST 12/20/2023 21:26 EST Sha LARSON POINT OF CARE TEST O RDERABLES Final Result [facility] [address] [place] [address] * (ABNORMAL) POCT GLUCOSE, INTERFACED (12/20/2023 18:50 EST) Glucose, POC 375(H) 70 - 100 mg/dL 12/20/2023 18:51 EST [facility] HN LAB POC COMMENT (GLUCOSE) Test Performed by Nursing Services 12/20/2023 18:51 EST [facility] Blood CAPILLARY BLOOD / Unknown 12/20/2023 18:50 EST 12/20/2023 18:51 EST Jacob Patel MD POINT OF CARE TEST ORDERABLES Final Result Performing Organization Address [facility] Co de Phone Number [facility] [address] [place] [address] * (ABNORMAL) POCT GLUCOSE, INTERFACED (12/20/2023 14:34 EST) Glucose, POC 270(H) 70 - 100 mg/dL 12/20/2023 14:35 EST [facility] HN LAB POC COMMENT (GLUCOSE) Test Performed by Nursing Services 12/20/2023 14:35 EST [facility] Blood CAPILLARY BLOOD / Unknown 12/20/2023 14:34 EST 12/20/2023 14:35 EST Jacob Patel MD POINT OF CARE TEST ORDERABLES Final Result Performing Organization Address [facility] de Phone Number [facility] [address] [place] [address] * EKG 12-LEAD (12/20/2023 13:41 EST) 12/20/2023 13:4 1 EST Narrative [facility] EKG - 12/22/2023 12:52 EST ? [facility] ? Test Date: ?2023-12-20 Pat Name: ? GERSON BRUNER ? Department: ?? ED ? Room: ? WB05 Gender: ? Male ? 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 Requested By: SUSU FAIZ Order Number: [id number] ? Reading MD: ?? RAFFAELE AVILESBERG MD ? Measurements Intervals ?[place] ? Rate: ? 139 ?P: ?0 ND: ? 0 ?QRS: ?32 QRSD: ? 89 ? T: ?49 QT: ? 304 ? QTc: ?463 ? Interpretive Statements ATRIAL FIBRILLATION WITH RAPID VENTRICULAR RESPONSE NONSPECIFIC ST & T-WAVE ABNORMALITY No previous ECG available for comparison I reviewed the tracing and have either agreed or edited the findings in this report. Electronically Signed On 12-22-2023 12:52:15 EST by RAFFAELE GÓMEZ MD. 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 Electronically Signed On 12-22-2023 12:52:15 EST by MIL[employer]IA CID. us Jacob Patel MD CARDIAC ECG ORDERABLES Final R esult Performing Organization Address City/[facility]/ZIP Co de Phone Number [facility] EKG * (ABNORMAL) POCT GLUCOSE, INTERFACED (12/20/2023 12:38 EST) Glucose, POC 235(H) 70 - 100 mg/dL 12/20/2023 12:39 EST [facility] HN LAB POC COMMENT (GLUCOSE) Test Performed by Nursing Services 12/20/2023 12:39 EST [facility] Blood CAPILLARY BLOOD / Unknown 12/20/2023 12:38 EST 12/20/2023 12:39 EST us Sha LARSON POINT OF CARE TEST O RDERABLES Final Result [facility] [address] [place] [address] * (ABNORMAL) POCT GLUCOSE, INTERFACED (12/20/2023 10:39 EST) Glucose, POC 212(H) 70 - 100 mg/dL 12/20/2023 10:40 [facility] HN LAB POC COMMENT (GLUCOSE) Test Performed by Nursing Services 12/20/2023 10:40 [facility] Blood CAPILLARY BLOOD / Unknown 12/20/2023 10:39 EST 12/20/2023 10:40 EST us Jacob Patel MD POINT OF CARE TEST ORDERABLES Final Result [facility] [address] [place] [address] * (ABNORMAL) BLOOD GASES, VENOUS (12/20/2023 7:52 EST) pH, Venous 7.35 7.31 - 7.41 12/20/2023 8:11 [facility] pCO2, Venous 42 41 - 51 mmHg 12/20/2023 8:11 [facility] pO2, Venous 42 30 - 50 mmHg 12/20/2023 8:11 [facility] tCO2, Venous 24 22 - 28 mmol/L 12/20/2023 8:11 [facility] Temperature 36.9 C 12/20/2023 8:11 [facility] O2 Saturation, Venous 73 60 - 85 % 12/20/2023 8:11 [facility] Oxygen Therapy (FIO2) 12/20/2023 8:11 [facility] Comment:5l nc Base Level -2.50(L) -2.00 - 3.00 mmol/L 12/20/2023 8:11 [facility] Blood VENOUS BLOOD / Unknown Venipuncture / Unknown 12/20/2023 7:52 EST 12/20/2023 8:02 EST us Isaac Rodriguez MD MPH CHEMISTRY & BLOOD GAS ORDER FRANSISCO Final Result Performing Organization Address City/[facility]/ZIP Co de Phone Number [facility] [address] [place] [address] * (ABNORMAL) POCT GLUCOSE, INTERFACED (12/20/2023 7:28 EST) Glucose, POC 393(H) 70 - 100 mg/dL 12/20/2023 7:29 EST [facility] HN LAB POC COMMENT (GLUCOSE) Test Performed by Nursing Services 12/20/2023 7:29 EST [facility] Blood CAPILLARY BLOOD / Unknown 12/20/2023 7:28 EST 12/20/2023 7:29 EST us Jacob Patel MD POINT OF CARE TEST ORDERABLES Final Result Performing Organization Address City/[facility]/ZIP Co de Phone Number [facility] [address] [place] [address] * COVID-19 TEST [facility] PCR (12/20/2023 6:22 EST) Swab NASOPHARYNGEAL STRUCTURE / Unknown Swab / Unknown 12/20/2023 6:22 EST 12/20/2023 6:27 EST us Isaac Rodriguez MD MPH MICROBIOLOGY - GENERAL [place] Final Result Performing Organization Address City/[facility]/ZIP Co de Phone Number [facility] [address] [place] [address] * COVID-19 TESTING (12/20/2023 6:22 EST) [facility] COVID-19 rt-PCR Result Negative Negative 12/20/2023 7:15 EST [facility] Comment: This test has not been FDA cleared or approved. This test has been authorized by FDA under an EUA for use by authorized laboratories. This test has been authorized only for detection of nucleic acid from 2019-nCoV, not for any other viruses or pathogens. This test is only authorized for the duration of the declaration that circumstances exist justifying the authorization of emergency use of in vitro diagnostic tests for detection and/or diagnosis of 2019-nCoV under section 564(b)(1) of Act, 21 U.S.C ?? 360bbb-3(b) (1), unless the authorization is terminated or revoked sooner. Negative results do not preclude 2019-nCoV infection and should not be used as the sole basis for treatment or other patient management decisions. Negative results must be combined with clinical observations, patient history, and epidemiological information. Performed on the [employer] GeneXpert Instrument Performing Lab GeneXpert [facility] 12/20/2023 7:15 EST [facility] LABORATORY SERVICES Swab NASOPHARYNGEAL STRUCTURE / Unknown Swab / Unknown 12/20/2023 6:22 EST 12/20/2023 6:27 EST Isaac Rodriguez MD MPH MICROBIOLOGY [facility] [place] [place] Final Result Performing Organization Address City/[facility]/ZIP Co de Phone Number [facility] LABORATORY SERVICES [address] [place] [address] * INFLUENZA A AND B,RSV PCR (12/20/2023 6:22 EST) FLU A RNA Result (FLARES) Negative Negative 12/20/2023 7:15 [facility] LABORATORY SERVICES FLU B RNA Result (FLBRES) Negative Negative 12/20/2023 7:15 [facility] LABORATORY SERVICES RSV RNA Result (RSVRES) Negative Negative 12/20/2023 7:15 [facility] LABORATORY SERVICES Swab NASOPHARYNGEAL STRUCTURE / Unknown Swab / Unknown 12/20/2023 6:22 EST 12/20/2023 6:27 EST Isaac Rodriguez MD MPH MICROBIOLOGY - GENERAL [place] Final Result Performing Organization Address City/[facility]/ZIP Co de Phone Number [facility] LABORATORY SERVICES [address] [place] [address] * TSH (12/20/2023 5:49 EST) TSH 2.09 0.47 - 4.68 mIU/L 12/20/2023 16:29 EST [facility] LABORATORY SERVICES Blood VENOUS BLOOD / Unknown Venipuncture / Unknown 12/20/2023 5:49 EST 12/20/2023 6:22 EST Narrative [facility] LABORATORY SERVICES - 12/20/2023 16:29 EST The results of this assay can be falsely lowered due to the consumption of Biotin. Sha Cabral [facility] CHEMISTRY & BLOOD GA S ORDERABLES Final Result Performing Organization Address City/[facility]/ZIP Co de Phone Number [facility] LABORATORY SERVICES [address] [place] [address] * VANCOMYCIN, RANDOM (12/20/2023 5:49 EST) Vancomycin Random 13.5 See Note ??g/mL 12/20/2023 11:10 EST [facility] LABORATORY SERVICES Comment: NOTE: Reference Ranges: Trough: ??10.0 - 20.0 ug/mL Peak: ??25.0 - 50.0 ug/mL Blood VENOUS BLOOD / Unknown Venipuncture / Unknown 12/20/2023 5:49 EST 12/20/2023 6:[address] [facility] CHEMISTRY & BLOOD GA S ORDERABLES Final Result Performing Organization Address [facility] de Phone Number [facility] LABORATORY SERVICES [address] [place] [address] * (ABNORMAL) ALBUMIN (12/20/2023 5:49 EST) Pathologist [facility] Albumin 2.7(L) 3.4 - 4.9 g/dL 12/20/2023 11:03 EST [facility] LABORATORY SERVICES Blood VENOUS BLOOD / Unknown Venipuncture / Unknown 12/20/2023 5:49 EST 12/20/2023 6:22 EST Mirian Ruiz PA-C CHEMISTRY & BLOOD GA S ORDERABLES Final Result Performing Organization Address [facility]/ZIP Co de Phone Number [facility] LABORATORY SERVICES [address] [place] [address] * (ABNORMAL) PHOSPHORUS (12/20/2023 5:49 EST) Pathologist [facility] Phosphorus 6.3(H) 2.5 - 4.5 mg/dL 12/20/2023 10:17 [facility] LABORATORY SERVICES Blood VENOUS BLOOD / Unknown Venipuncture / Unknown 12/20/2023 5:49 EST 12/20/2023 6:22 EST Mirian Ruiz PA-C CHEMISTRY & BLOOD GA S ORDERABLES Final Result [facility] LABORATORY SERVICES [address] [place] [address] * HOLD GREEN TOP (12/20/2023 5:49 EST) [facility] Hold Hold 12/20/2023 7:31 EST [facility] LABORATORY SERVICES Blood VENOUS BLOOD / Unknown 12/20/2023 5:49 EST 12/20/2023 6:21 EST us Isaac Rodriguez MD MPH LAB INFO SERVICE AND SUPPOR T & PHONE RESULT Final Result Performing Organization Address City/[facility]/ZIP Co de Phone Number [facility]ORATORY [facility] [address] [place] [address] * (ABNORMAL) BASIC METABOLIC PANEL (BMP) (12/20/2023 5:49 EST) [facility] Sodium 132(L) 136 - 145 mmol/L 12/20/2023 6:39 [facility] LABORATORY SERVICES Potassium 6.0(H) 3.5 - 5.0 mmol/L 12/20/2023 6:39 [facility] LABORATORY SERVICES Chloride 92(L) 96 - 110 mmol/L 12/20/2023 6:39 [facility] LABORATORY SERVICES CO2 Total 22 22 - 32 mmol/L 12/20/2023 6:39 [facility] LABORATORY SERVICES Anion Gap 18(H) 5 - 14 mmol/L 12/20/2023 6:39 [facility] LABORATORY [facility] Glucose 389(H) 70 - 99 mg/dl 12/20/2023 6:39 [facility] LABORATORY [facility] Calcium 8.9 8.5 - 10.5 mg/dL 12/20/2023 6:39 [facility] LABORATORY SERVICES BUN 54(H) 10 - 26 mg/dL 12/20/2023 6:39 [facility] LABORATORY SERVICES Creatinine 8.46(H) 0.66 - 1.25 mg/dL 12/20/2023 6:39 [facility] LABORATORY SERVICES eGFR 7(L) >60 mL/min/1.73 m2 12/20/2023 6:39 [facility] LABORATORY SERVICES Blood VENOUS BLOOD / Unknown Venipuncture / Unknown 12/20/2023 5:49 EST 12/20/2023 6:22 EST Jacob Patel MD CHEMISTRY & BLOOD GAS ORDERABL ES Final Result Performing Organization Address City/State/[facility] Co de Phone Number [facility] LABORATORY SERVICES [address] [place] [address] * (ABNORMAL) COMPLETE BLOOD COUNT (12/20/2023 5:49 EST) WBC 19.02(H) 4.00 - 10.40 K/cmm 12/20/2023 6:34 [facility] LABORATORY [facility] RBC 2.60(L) 4.36 - 5.78 M/cmm 12/20/2023 6:34 [facility] LABORATORY [facility] Hemoglobin 7.9(L) 13.8 - 17.3 g/dL 12/20/2023 6:34 [facility] LABORATORY SERVICES HCT 24.2(L) 39.5 - 50.2 % 12/20/2023 6:34 [facility] LABORATORY SERVICES MCV 93 81 - 95 fL 12/20/2023 6:34 [facility] LABORATORY SERVICES MCH 30.4 27.6 - 33.0 pg 12/20/2023 6:34 [facility] LABORATORY SERVICES MCHC 32.6(L) 32.8 - 36.4 g/dL 12/20/2023 6:34 [facility] LABORATORY SERVICES RDW-CV 12.8 <14.2 % 12/20/2023 6:34 [facility] LABORATORY SERVICES RDW-SD 44.1 <46.0 fl 12/20/2023 6:34 EST [facility] LABORATORY SERVICES PLT 319 141 - 377 K/cmm 12/20/2023 6:34 EST [facility] LABORATORY SERVICES MPV 12.0 9.5 - 12.7 fL 12/20/2023 6:34 EST [facility]ATORY [facility] Blood VENOUS BLOOD / Unknown Venipuncture / Unknown 12/20/2023 5:49 EST 12/20/2023 6:22 EST us Jacob Patel MD HEMATOLOGY & PF4 ORDERABLES Fi nal Result Performing Organization Address City/[facility]/ZIP Co de Phone Number [facility]ORATORY [facility] [address] [place] [address] * MAGNESIUM (12/20/2023 5:49 EST) Magnesium 2.1 1.7 - 2.8 mg/dL 12/20/2023 6:39 EST [facility] Blood VENOUS BLOOD / Unknown Venipuncture / Unknown 12/20/2023 5:49 EST 12/20/2023 6:22 EST Jacob Patel MD CHEMISTRY & BLOOD GAS ORDERABL ES Final Result Performing Organization Address [facility] Co de Phone Number [facility] LABORATORY SERVICES [address] [place] [address] * XR CHEST PORTABLE 1 VIEW (12/20/2023 5:23 EST) Anatomical Region Laterality Modality Computed Radiogr aphy 12/20/2023 8:57 EST Impressions 12/20/2023 8:57 EST Patchy opacities within the right midlung and lung base which could represent pneumonia in this patient with leukocytosis. RECOMMENDATIONS: A short-term follow-up 2-view chest radiograph is recommended in 6-8 weeks to document resolution of lung opacity (or opacities) after therapy. I have personally reviewed the images and the above interpretation and agree with the findings. [id number] Narrative 12/20/2023 8:57 EST XR CHEST PORTABLE 1 VIEW ??12/20/2023 5:14 AM Clinical History/comments: new hypoxia of unclear etiology; Comparison: None. Technique: Single recumbent portable AP view of the chest. Findings: Lines/tubes/devices: ??None Lungs: Ill-defined patchy opacities within the right midlung and lung base. The left lung is clear. Pleura: No pneumothorax or pleural effusion; however, neither can be excluded on this single nonupright view. Cardiac and mediastinal contours: Normal for AP technique. Soft tissues and extrathoracic findings: Degenerative changes of bilateral shoulders. Bones: Chronic appearing right eighth rib fracture. Procedure Note Abdifatah Ascencio MD - 12/20/2023 XR CHEST PORTABLE 1 VIEW 12/20/2023 5:14 AM Clinical History/comments: new hypoxia of unclear etiology; Comparison: None. Technique: Single recumbent portable AP view of the chest. Findings: Lines/tubes/devices: None Lungs: Ill-defined patchy opacities within the right midlung and lungbase. The left lung is clear. Pleura: No pneumothorax or pleural effusion; however, neither can beexcluded on this single nonupright view. Cardiac and mediastinal contours: Normal for AP technique. Soft tissues and extrathoracic findings: Degenerative changes of bilateralshoulders. Bones: Chronic appearing right eighth rib fracture. IMPRESSION Patchy opacities within the right midlung and lung base which couldrepresent pneumonia in this patient with leukocytosis. RECOMMENDATIONS: A short-term follow-up 2-view chest radiograph is recommended in 6-8 weeksto document resolution of lung opacity (or opacities) after therapy. I have personally reviewed the images and the above interpretation andagree with the findings. [id number] us Isaac Rodriguez MD MPH IMG DIAGNOSTIC IMAGING ORDAllison [place] Final Result * BACTERIAL CULTURE, URINE (12/20/2023 0:10 EST) Organism ID No Growth 12/21/2023 10:26 EST [facility] LAB[facility]AT[facility] Urine URINE SPECIMEN OBTAINED BY CLEAN CATCH PROCEDURE / Unknown Urine Collect / Unknown 12/20/2023 0:10 EST 12/20/2023 0:55 EST us Gerson Youngblood MD MICROBIOLOGY - GENERAL ORDERABLE S Final Result [facility] [address] [place] [address] * (ABNORMAL) UA CHEMICAL & SEDIMENT + REFLEX TO CULTURE (12/20/2023 0:10 EST) Color UA Yellow Colorless, Yellow 12/20/2023 0:55 [facility]ATORY [facility] Clarity UA Clear Clear 12/20/2023 0:55 [facility] Glucose UA 1+(A) Negative mg/dL 12/20/2023 0:55 [facility] Bilirubin UA Negative Negative 12/20/2023 0:55 [facility] Ketones UA Negative Negative 12/20/2023 0:55 [facility] LABORATORY SERVICES Specific [place], Urine 1.030 1.001 - 1.030 12/20/2023 0:55 [facility] Blood UA Trace(A) Negative 12/20/2023 0:55 [facility] Urobilinogen UA 0.2 0.2-1.0 mg/dL mg/dL 12/20/2023 0:55 [facility] Nitrite UA Negative Negative 12/20/2023 0:55 [facility] Leukocyte Esterase UA Negative Negative 12/20/2023 0:55 [facility] Protein UA 3+(A) Negative mg/dL 12/20/2023 0:55 [facility] pH, UA 6.5 <8.5 12/20/2023 0:55 [facility] Urine RBC Count, Auto 0 - 2 0 - 2 Cells/HPF 12/20/2023 0:55 [facility] Urine WBC Count, Auto 10 - 50(A) 0 - 3 Cells/HPF 12/20/2023 0:55 [facility] Urine Squamous Count, Auto None Seen None Seen Cells/HPF 12/20/2023 0:55 [facility] Urine Hyaline Cast Count, Auto 11 - 50(A) <=10 Casts/LPF 12/20/2023 0:55 EST [facility] Urine Bacteria Count, Auto None Seen None Seen Bacteria/HP F 12/20/2023 0:55 EST [facility] Urine URINE SPECIMEN OBTAINED BY CLEAN CATCH PROCEDURE / Unknown Urine Collect / Unknown 12/20/2023 0:10 EST 12/20/2023 0:13 EST Narrative [facility] - 12/20/2023 0:55 EST A Urine Culture test has been reflexively ordered based on result criteria from the Urine Sediment Analysis. Urine Sediment Analysis results are unreliable on urines that are unrefrigerated for >2 hrs or refrigerated >8 hrs. us Gerson Youngblood MD URINALYSIS ORDERABLES Final Resu lt Performing Organization Address City/State/[facility] Co de Phone Number [facility] [address] [place] [address] * XR FOOT LEFT 3 OR MORE VIEWS (12/19/2023 23:00 EST) Anatomical Region Laterality Modality Lower Extremities Left Computed Radio graphy 12/20/2023 9:53 EST Impressions 12/20/2023 9:53 EST FINDINGS / IMPRESSION: * ??No acute fracture or traumatic malalignment. * ??Subcutaneous air and edema in the soft tissues inferior to the calcaneus with adjacent ulceration of the skin appreciated to better extent on same-day CT compatible with cellulitis. No evidence of osseous erosion to indicate osteomyelitis. * ??Atherosclerosis. * ??Scattered degenerative changes through the foot. I have personally reviewed the images and the above interpretation and agree with the findings. [id number] Narrative 12/20/2023 9:53 EST EXAM/TECHNIQUE: 12/19/2023 11:00 PM ??XR FOOT LEFT 3 OR MORE VIEWS 3 views ?? HISTORY: ??left heel ulcer; COMPARISON: CT left lower extremity same day Procedure Note Herb Cuellar MD - 12/20/2023 EXAM/TECHNIQUE: 12/19/2023 11:00 PM XR FOOT LEFT 3 OR MORE VIEWS 3 views HISTORY: left heel ulcer; COMPARISON: CT left lower extremity same day IMPRESSION FINDINGS / IMPRESSION: * No acute fracture or traumatic malalignment. * Subcutaneous air and edema in the soft tissues inferior to thecalcaneus with adjacent ulceration of the skin appreciated to betterextent on same-day CT compatible with cellulitis. No evidence of osseouserosion to indicate osteomyelitis. * Atherosclerosis. * Scattered degenerative changes through the foot. I have personally reviewed the images and the above interpretation andagree with the findings. [id number] us Kenton Verdugo MD IMG DIAGNOSTIC IMAGING ORDERAB LES Final Result * (ABNORMAL) SED RATE (12/19/2023 17:49 EST) Pathologist [facility] Sed Rate 68(H) 0 - 20 mm/hr 12/19/2023 21:30 EST [facility] Blood VENOUS BLOOD / Unknown Venipuncture / Unknown 12/19/2023 17:49 EST 12/19/2023 17:57 EST us Kenton Verdugo MD HEMATOLOGY & PF4 ORDERABLES Fi nal Result [facility] [address] [place] [address] * (ABNORMAL) C REACTIVE PROTEIN (12/19/2023 17:49 EST) [facility] C-Reactive Protein 187.2(H) <10.0 mg/L 12/19/2023 21:30 EST [facility] Blood VENOUS BLOOD / Unknown Venipuncture / Unknown 12/19/2023 17:49 EST 12/19/2023 17:57 EST us Kenton Verdugo MD CHEMISTRY & BLOOD GAS ORDERABL ES Final Result [facility] [address] [place] [address] * LACTIC ACID WITH REFLEX - USE FOR INITIAL SEPSIS EVALUATION (12/19/2023 17:49 EST) [facility] Lactic Acid 0.9 <=2.0 mmol/L 12/19/2023 18:14 EST [facility] Blood VENOUS BLOOD / Unknown Venipuncture / Unknown 12/19/2023 17:49 EST 12/19/2023 17:57 EST us Gerson Youngblood MD CHEMISTRY & BLOOD GAS ORDERABLES Final Result [facility] [address] [place] [address] * (ABNORMAL) COMPREHENSIVE METABOLIC PANEL (CMP) (12/19/2023 17:49 EST) Sodium 132(L) 136 - 145 mmol/L 12/19/2023 18:14 [facility] Potassium 5.5(H) 3.5 - 5.0 mmol/L 12/19/2023 18:14 [facility] Chloride 92(L) 96 - 110 mmol/L 12/19/2023 18:14 [facility] CO2 Total 29 22 - 32 mmol/L 12/19/2023 18:14 [facility] Glucose 272(H) 70 - 99 mg/dl 12/19/2023 18:14 [facility] BUN 47(H) 10 - 26 mg/dL 12/19/2023 18:14 [facility] Creatinine 7.85(H) 0.66 - 1.25 mg/dL 12/19/2023 18:14 [facility] eGFR 7(L) >60 mL/min/1.7 3m2 12/19/2023 18:14 [facility] Total Protein 6.4 6.3 - 8.2 g/dL 12/19/2023 18:14 [facility] Albumin 3.3(L) 3.4 - 4.9 g/dL 12/19/2023 18:14 [facility] Alkaline Phosphatase 107 38 - 126 U/L 12/19/2023 18:14 [facility] AST 18 15 - 46 U/L 12/19/2023 18:14 [facility] ALT 15 <50 U/L 12/19/2023 18:14 [facility] Bilirubin, Total <0.5 <1.4 mg/dL 12/19/19 18:14 [facility] Calcium 9.4 8.5 - 10.5 mg/dL 12/19/2023 18:14 [facility] Albumin/Globulin Ratio 1.1 1.0 - 2.5 12/19/2023 18:14 [facility] Anion Gap 11 5 - 14 mmol/L 12/19/2023 18:14 [facility] Blood VENOUS BLOOD / Unknown Venipuncture / Unknown 12/19/2023 17:49 EST 12/19/2023 17:57 EST Gerson Youngblood MD CHEMISTRY & BLOOD GAS ORDERABLES Final Result Performing Organization Address City/State/[facility] Co de Phone Number [facility] [address] [place] [address] * (ABNORMAL) COMPLETE BLOOD COUNT AND DIFFERENTIAL (12/19/2023 17:49 EST) WBC 20.14(H) 4.00 - 10.40 K/cmm 12/19/2023 18:04 [facility] RBC 2.78(L) 4.36 - 5.78 M/cmm 12/19/2023 18:04 [facility] Hemoglobin 8.3(L) 13.8 - 17.3 g/dL 12/19/2023 18:04 [facility] HCT 26.2(L) 39.5 - 50.2 % 12/19/2023 18:04 [facility] MCV 94 81 - 95 fL 12/19/2023 18:04 [facility] MCH 29.9 27.6 - 33.0 pg 12/19/2023 18:04 [facility] MCHC 31.7(L) 32.8 - 36.4 g/dL 12/19/2023 18:04 [facility] RDW-CV 12.9 <14.2 % 12/19/2023 18:04 [facility] RDW-SD 44.2 <46.0 fl 12/19/2023 18:04 [facility] PLT 347 141 - 377 K/cmm 12/19/2023 18:04 [facility] MPV 11.9 9.5 - 12.7 fL 12/19/2023 18:04 [facility] % Neutrophils 81.1 % 12/19/2023 18:04 [facility] % Lymphocytes 9.0 % 12/19/2023 18:04 [facility] % Monocytes 7.2 % 12/19/2023 18:04 [facility] % Eosinophils 2.1 % 12/19/2023 18:04 [facility] % Basophils 0.2 % 12/19/2023 18:04 [facility] % Immature Grans 0.4 % 12/19/19 18:04 [facility] Absolute Neutrophils 16.32(H) 2.20 - 8.85 K/cmm 12/19/2023 18:04 [facility] Absolute Lymphocytes 1.81 1.09 - 3.30 K/cmm 12/19/2023 18:04 [facility] Absolute Monocytes 1.46(H) 0.10 - 0.80 K/cmm 12/19/2023 18:04 [facility] Absolute Eosinophils 0.42 0.03 - 0.61 K/cmm 12/19/2023 18:04 [facility] ABS Basophils 0.04 0.01 - 0.11 K/cmm 12/19/2023 18:04 [facility] Absolute Immature Grans 0.09(H) 0.00 - 0.06 K/cmm 12/19/2023 18:04 [facility] Type of Differential: Auto 12/19/2023 18:04 [facility] Blood VENOUS BLOOD / Unknown Venipuncture / Unknown 12/19/2023 17:49 EST 12/19/2023 17:57 EST us Gerson Youngblood MD PACKAGES & DNA PROBE ORDERABLES Final Result [facility] [address] [place] [address] * BACTERIAL CULTURE, BLOOD (12/19/2023 17:49 EST) Organism ID No Growth at 5 days 12/24/2023 18:15 EST [facility] Blood VENOUS BLOOD / Unknown Venipuncture / Unknown 12/19/2023 17:49 EST 12/19/2023 18:13 EST us Gerson Youngblood MD MICROBIOLOGY - GENERAL ORDERABLE S Final Result Performing Organization Address City/[facility]/ZIP Co de Phone Number [facility] [address] [place] [address] * BACTERIAL CULTURE, BLOOD (12/19/2023 17:49 EST) Organism ID No Growth at 5 days 12/24/2023 18:15 EST [facility] Blood VENOUS BLOOD / Unknown Venipuncture / Unknown 12/19/2023 17:49 EST 12/19/2023 18:13 EST Result Chantal Youngblood MD MICROBIOLOGY - GENERAL ORDERABLE S Final Result Performing Organization Address City/[facility]/ZIP Co de Phone Number [facility] [address] [place] [address] * CT OUTSIDE IMAGES LEFT LOWER EXTREMITY (12/19/2023 13:09 EST) Narrative 12/19/2023 13:09 EST This is a non-reportable exam. us External Imaging IMG OTHER IMAGING ORDERABLES Fi nal Result * XR OUTSIDE IMAGES CHEST (12/17/2023 8:32 EST) Narrative 12/20/2023 8:32 EST This is a non-reportable exam. us External Imaging IMG OTHER IMAGING ORDERABLES Fi nal Result * XR OUTSIDE IMAGES LEFT LOWER EXTREMITY (12/17/2023 8:31 EST) Narrative 12/20/2023 8:31 EST This is a non-reportable exam. us External Imaging IMG OTHER IMAGING ORDERABLES Fi nal Result documented in this encounter Visit Diagnoses Diagnosis Diabetic foot infection ([facility]) [E11.628, L08.9]- Primary Type II or unspecified type diabetes mellitus with other specified manifestations, not stated as uncontrolled Cellulitis Cellulitis and abscess of unspecified site Diabetic foot infection ([facility]) [E11.628, L08.9] Type II or unspecified type diabetes mellitus with other specified manifestations, not stated as uncontrolled Type 2 diabetes mellitus with chronic kidney disease on chronic dialysis, with long-term current use of insulin ([facility]) [E11.22, N18.6, Z99.2, Z79.4] ESRD (end stage renal disease) ([facility]) [N18.6] End stage renal disease Primary hypertension [I10] Unspecified essential hypertension Hyperkalemia [E87.5] Hyperpotassemia Anemia of chronic renal failure, stage 5 ([facility]) [N18.5, D63.1] ESRD on hemodialysis ([facility]) End stage renal disease Atrial fibrillation with RVR ([facility]) Atrial fibrillation Primary hypertension [I10] Unspecified essential hypertension Type 2 diabetes mellitus with chronic kidney disease on chronic dialysis, with long-term current use of insulin ([facility]) [E11.22, N18.6, Z99.2, Z79.4] Hyperkalemia [E87.5] Hyperpotassemia Cellulitis Cellulitis and abscess of unspecified site ESRD (end stage renal disease) ([facility]) End stage renal disease Anemia of chronic renal failure, stage 5 ([facility]) [N18.5, D63.1] ESRD on hemodialysis ([facility]) End stage renal disease Atrial fibrillation with RVR ([facility]) Atrial fibrillation documented in this encounter Admitting Diagnoses Diagnosis Osteomyelitis ([facility]) Unspecified osteomyelitis, site unspecified documented in this encounter Administered Medications Inactive Administered Medications - up to 3 most recent administrations Medication Order MAR Action Action Date Dose Rate Site acetaminophen (TYLENOL) tablet 1,000 mg 1,000 mg, oral, NOW X1, 1 dose, On 12/19/23 at 2045, STAT Given 12/19/2023 20:36 EST 1,000 mg acetaminophen (TYLENOL) tablet 650 mg 650 mg, oral, EVERY 6 HOURS PRN, Starting on Wed12/20/23 at 0105, Until Wed12/21/23 at 0912, Pain, Fever, Routine Given 12/20/2023 20:10 EST 650 mg Given 12/20/2023 12:12 EST 650 mg acetaminophen (TYLENOL) tablet 650 mg 650 mg, oral, EVERY 6 HOURS, First dose (after last modification) on Wed12/21/23 at 1200, Until Discontinued, Routine Given 12/24/2023 13:20 EST 650 mg Given 12/24/2023 5:51 EST 650 mg Given 12/23/2023 17:55 EST 650 mg apixaban (ELIQUIS) tablet 5 mg 5 mg, oral, 2 TIMES DAILY, First dose on Wed12/23/23 at 2100, Until Discontinued, Routine Given 12/24/2023 12:07 EST 5 mg Given 12/23/2023 20:35 EST 5 mg atorvastatin (LIPITOR) tablet 40 mg 40 mg, oral, DAILY, First dose on Wed12/20/23 at 0900, Until Discontinued, Routine Given 12/24/2023 12:00 EST 40 mg Given 12/23/2023 8:06 EST 40 mg Given 12/22/2023 12:30 EST 40 mg calcium carbonate (TUMS) tablet 500 mg (200 mg elemental calcium) 1 Tablet 1 Tablet, oral, 3 TIMES DAILY WITH MEALS, First dose on Wed12/20/23 at 0800, Until Discontinued, Routine Given 12/20/2023 7:23 EST 1 Tablet calcium carbonate (TUMS) tablet 500 mg (200 mg elemental calcium) 2 Tablet 2 Tablet, oral, EVERY MON, WED, FRI (DIALYSIS), First dose on Wed12/20/23 at 1000, Until Discontinued, Routine Given 12/24/2023 9:36 EST 2 Tablets Given 12/22/2023 9:23 EST 2 Tablets Given 12/20/2023 11:32 EST 2 Tablets calcium carbonate (TUMS) tablet 500 mg (200 mg elemental calcium) 2 Tablet 2 Tablet, oral, NOW X1, 1 dose, On Wed12/21/23 at 0745, Routine Given 12/21/2023 8:10 EST 2 Tablets carvediloL (COREG) tablet 12.5 mg 12.5 mg, oral, 2 TIMES DAILY WITH BREAKFAST & DINNER, First dose (after last modification) on Wed12/23/23 at 1700, Until Discontinued, Routine Given 12/24/2023 11:59 EST 12.5 mg Given 12/23/2023 17:55 EST 12.5 mg carvediloL (COREG) tablet 6.25 mg 6.25 mg, oral, 2 TIMES DAILY WITH BREAKFAST & DINNER, First dose on Wed12/20/23 at 1700, Until Discontinued, Routine Given 12/20/2023 15:37 EST 6.25 mg carvediloL (COREG) tablet 6.25 mg 6.25 mg, oral, 2 TIMES DAILY WITH BREAKFAST & DINNER, First dose (after last modification) on Wed12/22/23 at 1700, Until Discontinued, Routine Given 12/23/2023 8:06 EST 6.25 mg Given 12/22/2023 16:59 EST 6.25 mg cefTRIAXone (ROCEPHIN) 2,000 mg in sodium chloride (NS MBP) 50 mL IVPB 2,000 mg, intravenous, Administer over 30 Minutes, EVERY 24 HOURS, 7 doses, First dose (after last modification) on Wed12/20/23 at 0115, Last dose on Wed12/26/23 at 0115, Type of Therapy: Empiric, Suspected Indication (Select all that apply): Moderate DM foot infection, ID Consult: No, Routine New Bag 12/20/2023 1:51 EST 2,000 mg dextrose 50 % solution 12.5 g 12.5 g (25 mL), intravenous, PRN, Starting on Wed12/20/23 at 0105, Until Wed12/24/23 at 1526, Low Blood Sugar, Routine dilTIAZem (CARDIZEM CD) ER capsule 120 mg 120 mg, oral, DAILY, First dose on Wed12/22/23 at 0830, Until Discontinued, STAT Given 12/24/2023 11:59 EST 120 mg Given 12/23/2023 8:06 EST 120 mg Given 12/22/2023 8:29 EST 120 mg dilTIAZem (CARDIZEM) tablet 30 mg 30 mg, oral, EVERY 6 HOURS, First dose on Wed12/21/23 at 1300, Until Discontinued, Routine Given 12/22/2023 0:17 EST 30 mg Given 12/21/2023 17:44 EST 30 mg Given 12/21/2023 12:57 EST 30 mg DULoxetine (CYMBALTA) delayed release capsule 20 mg 20 mg, oral, 2 TIMES DAILY, First dose (after last modification) on Tu12/21/23 at 0900, Until Discontinued, Routine Given 12/24/2023 12:00 EST 20 mg Given 12/23/2023 20:35 EST 20 mg Given 12/23/2023 8:05 EST 20 mg DULoxetine (CYMBALTA) delayed release capsule 40 mg 40 mg, oral, DAILY, First dose (after last modification) on Wed12/20/23 at 0900, Until Discontinued, Routine Given 12/20/2023 14:35 EST 40 mg epoetin ken (EPOGEN) 20,000 unit/2 mL injection 1,500 Units 1,500 Units, intravenous, EVERY WED, WED, WED (DIALYSIS), First dose on Wed12/20/23 at 1000, Until Discontinued, Routine Given 12/24/2023 9:36 EST 1,500 Unit s Given 12/22/2023 8:52 EST 1,500 Units Given 12/20/2023 11:35 EST 1,500 Units ertapenem (INVANZ) 1,000 mg in sodium chloride (NS MBP) 100 mL IVPB 1,000 mg, intravenous, Administer over 30 Minutes, Once (Time Specified), 1 dose, On Wed12/24/23 at 1130, Type of Therapy: Empiric, Suspected Indication (Select all that apply): Other, Other Indication: diabetic foot infection, Controlled Antibiotic Has ID Approved? Yes, ID Provider Consulted: Daniel Shelby MD, Routine Given 12/24/2023 12:00 EST 1,000 mg ertapenem (INVANZ) 500 mg in sodium chloride (NS) 0.9 % 50 mL IVPB 500 mg, intravenous, Administer over 30 Minutes, EVERY 24 HOURS, 7 doses, First dose on Wed12/20/23 at 1700, Last dose on Wed12/26/23 at 1700, Type of Therapy: Empiric, Suspected Indication (Select all that apply): Other, Other Indication: diabetic foot infection, Controlled Antibiotic Has ID Approved? Yes, ID Provider Consulted: Daniel Shelby MD, Routine Given 12/23/2023 17:09 EST 500 mg Given 12/22/2023 17:02 EST 500 mg Given 12/21/2023 17:55 EST 500 mg famotidine (PEPCID) tablet 40 mg 40 mg, oral, DAILY, First dose on Wed12/20/23 at 0900, Until Discontinued, Routine Given 12/24/2023 12:00 EST 40 mg Given 12/23/2023 8:05 EST 40 mg Given 12/22/2023 12:30 EST 40 mg fluticasone propionate (FLOVENT) 110 mcg/actuation inhaler 1 Puff 1 Puff, inhalation, 2 TIMES DAILY, First dose on Wed12/20/23 at 0900, Until Discontinued, Routine Given 12/23/2023 20:45 EST 1 Puff Given 12/22/2023 20:53 EST 1 Puff Given 12/20/2023 20:12 EST 1 Puff glucagon injection 1 mg 1 mg, intramuscular, As needed, Starting on Wed12/20/23 at 0105, Until Wed12/24/23 at 1526, Low Blood Sugar, Routine heparin injection 5,000 Units 5,000 Units, subcutaneous, EVERY 12 HOURS, First dose (after last modification) on Wed12/20/23 at 2100, Until Discontinued, Routine Given 12/23/2023 8:05 EST 5,000 Units Given 12/22/2023 20:53 EST 5,000 Units Given 12/22/2023 12:30 EST 5,000 Units HYDROmorphone (DILAUDID) tablet 1 mg 1 mg, oral, NOW X1, 1 dose, On Wed12/20/23 at 2215, Routine Given 12/20/2023 21:54 EST 1 mg HYDROmorphone (DILAUDID) tablet 1 mg 1 mg, oral, NOW X1, 1 dose, On Wed12/21/23 at 0745, Routine Given 12/21/2023 8:10 EST 1 mg HYDROmorphone (DILAUDID) tablet 1 mg 1 mg, oral, EVERY 4 HOURS PRN, Starting on Wed12/21/23 at 0911, Until Wed12/24/23 at 1526, Pain, Routine Given 12/24/2023 7:42 EST 1 mg Given 12/23/2023 20:35 EST 1 mg Given 12/23/2023 15:00 EST 1 mg insulin aspart U-100 (NOVOLOG FLEXPEN) injection subcutaneous, 3 TIMES DAILY WITH MEALS, First dose on Wed12/20/23 at 0800, Until Discontinued, Routine Given 12/23/2023 18:02 EST 3 Units Given 12/23/2023 15:03 EST 5 Units Given 12/23/2023 8:44 EST 3 Units insulin glargine (LANTUS SOLOSTAR/SEMGLEE) injection pen 22 Units 22 Units (rounded from 21.875 Units = 0.25 Units/kg/day ? 87.5 kg), subcutaneous, ONCE DAILY L.A. INSULIN, First dose on Wed12/20/23 at 1000, Until Discontinued, Routine Given 12/20/2023 14:41 EST 22 Units insulin glargine (LANTUS SOLOSTAR/SEMGLEE) injection pen 32 Units 32 Units, subcutaneous, ONCE DAILY L.A. INSULIN, First dose (after last modification) on Wed12/21/23 at 1000, Until Discontinued, Routine Given 12/24/2023 12:04 EST 32 Units Given 12/23/2023 9:00 EST 32 Units Given 12/22/2023 14:06 EST 32 Units lactated ringers BOLUS 500 mL 500 mL, intravenous, NOW X1, 1 dose, On Wed12/19/23 at 1700, STAT New Bag 12/19/2023 17:55 EST 500 mL lactated ringers BOLUS 500 mL 500 mL, intravenous, NOW X1, 1 dose, On Wed12/20/23 at 1845, STAT New Bag 12/20/2023 19:00 EST 500 mL lidocaine 5 % (LIDODERM) patch 1 Patch 1 Patch, transdermal, Administer over 12 Hours, DAILY, First dose on Wed12/20/23 at 2130, Until Discontinued, Routine Patch Applied 12/20/2023 21:35 EST 1 Patch Back magnesium sulfate 2 g in water 50 mL 2 g, intravenous, Administer over 60 Minutes, NOW X1, 1 dose, On Wed12/21/23 at 1245, Routine New Bag 12/21/2023 12:57 EST 2 g metoprolol TARtrate (LOPRESSOR) tablet 12.5 mg 12.5 mg, oral, EVERY 6 HOURS, First dose on Wed12/20/23 at 1845, Until Discontinued, Routine Given 12/21/2023 6:22 EST 12.5 mg Given 12/21/2023 0:25 EST 12.5 mg Given 12/20/2023 19:00 EST 12.5 mg metoprolol TARtrate (LOPRESSOR) tablet 12.5 mg 12.5 mg, oral, NOW X1, 1 dose, On Wed12/21/23 at 0930, Routine Given 12/21/2023 9:15 EST 12.5 mg metroNIDAZOLE (FLAGYL) tablet 500 mg 500 mg, oral, EVERY 8 HOURS, 21 doses, First dose on Wed12/20/23 at 0115, Last dose on Wed12/26/23 at 1600, Routine Given 12/20/2023 7:23 EST 500 mg Given 12/20/2023 1:51 EST 500 mg ondansetron (PF) (ZOFRAN) injection 4 mg 4 mg, intravenous, EVERY 4 HOURS PRN, Starting on Wed12/20/23 at 0436, Until Wed12/21/23 at 0650, Nausea, Routine Given 12/20/2023 4:45 EST 4 mg ondansetron (ZOFRAN-ODT) disintegrating tablet 4 mg 4 mg, oral, EVERY 4 HOURS PRN, Starting on Wed12/21/23 at 0650, Until Wed12/24/23 at 1526, Nausea, Routine polyethylene glycol 3350 (MIRALAX) packet 17 g 17 g, oral, DAILY PRN, Starting on Wed12/21/23 at 0728, Until Wed12/24/23 at 1526, Constipation, Routine pregabalin (LYRICA) capsule 100 mg 100 mg, oral, 2 TIMES DAILY, First dose (after last modification) on Wed12/21/23 at 2100, Until Discontinued, Routine Given 12/24/2023 12:02 EST 100 mg Given 12/23/2023 20:35 EST 100 mg Given 12/23/2023 8:05 EST 100 mg pregabalin (LYRICA) capsule 200 mg 200 mg, oral, 2 TIMES DAILY, First dose (after last modification) on Wed12/20/23 at 0900, Until Discontinued, Routine Given 12/21/2023 8:10 EST 200 mg Given 12/20/2023 20:10 EST 200 mg Given 12/20/2023 14:36 EST 200 mg ramelteon (ROZEREM) tablet 8 mg 8 mg, oral, AT BEDTIME PRN, Starting on Wed12/20/23 at 0105, Until Wed12/24/23 at 1526, Sleep, Routine Given 12/23/2023 20:35 EST 8 mg Given 12/22/2023 20:53 EST 8 mg Given 12/21/2023 20:36 EST 8 mg sevelamer carbonate (RENVELA) tablet 1,600 mg 1,600 mg, oral, 3 TIMES DAILY WITH MEALS, First dose on Wed12/20/23 at 1700, Until Discontinued Given 12/24/2023 12:02 EST 1,600 mg Given 12/23/2023 17:55 EST 1,600 mg Given 12/23/2023 15:00 EST 1,600 mg sodium zirconium cyclosilicate (LOKELMA) powder in packet 10 g 10 g, oral, NOW X1, 1 dose, On Wed12/21/23 at 1545, Routine Given 12/21/2023 15:47 EST 10 g vancomycin 2,000 mg central line syringe 2,000 mg, central line, Administer over 120 Minutes, ONCE IN DIALYSIS, 1 dose, On Wed12/24/23 at 0915, STAT, Suspected Indication (Select all that apply): Moderate or Severe DM foot infection Given 12/24/2023 9:36 EST 2,000 mg documented in this encounter Discontinued Medications Medication Sig Discontinue Reason Start Date End Da te liraglutide (VICTOZA 2-JULY) 0.6 mg/0.1 mL (18 mg/3 mL) injectable pen Inject 1.8 mg into the skin. Patient Stopped Taking 11/05/2023 12/24/2023 MULTIVITAMIN ORAL Take by mouth. Patient Stopped Taking 024 nicotine (NICODERM CQ) 21 mg/[address] 1 Patch onto the skin daily. Patient Stopped Taking 11/11/2023 12/24/2023 nortriptyline (PAMELOR) 25 mg capsule Take 1 Capsule by mouth. Patient Stopped Taking 11/05/2023 12/24/2023 LEVEMIR FLEXPEN 100 unit/mL (3 mL) injectable pen Inject 30 Units into the skin at bedtime. 01/19/2023 12/24/2023 apixaban (ELIQUIS) 5 mg tablet Take 1 Tablet by mouth 2 times daily for 90 days. 12/23/2023 12/24/2023 amLODIPine (NORVASC) 10 mg tablet Take 1 Tablet by mouth daily. 12/24/2023 olmesartan (BENICAR) 5 mg tablet TAKE ONE TABLET BY MOUTH EVERY DAY STOP HCTZ 08/04/2023 12/24/2023 pregabalin (LYRICA) 200 mg capsule Take 1 Capsule by mouth 2 times daily. 08/03/2023 12/24/2023 amoxicillin (AMOXIL) 500 mg capsule Take 1 Capsule by mouth 2 times daily. 12/17/2023 12/24/2023 levOFLOXacin (LEVAQUIN) 750 mg tablet 12/17/2023 12/24/2023 documented as of this encounter Historical Medications * This list may reflect changes made after this encounter. sevelamer hydrochloride (RENAGEL) 800 mg tablet Take 2 Tablets by mouth 3 times daily with meals. 4 oxyCODONE-acetamino phen (PERCOCET) 5-325 mg per tablet TAKE ONE TABLET BY MOUTH TWICE A DAY NEEDED FOR PAIN, MAXIMUM DAILY DOSE = 2 TABLETS 12/15/2023 4 levOFLOXacin (LEVAQUIN) 750 mg tablet 12/17/2023 4 SANTYL ointment 12/07/2023 4 amoxicillin (AMOXIL) 500 mg capsule Take 1 Capsule by mouth 2 times daily. 12/17/2023 4 added in this encounter Active and Recently Administered Medications Times are shown in EST. Scheduled Medication Order 12/22/2023 12/23/2023 12/24/2023 acetaminophen (TYLENOL) tablet 650 mg 650 mg, oral, EVERY 6 HOURS, First dose (after last modification) on Wed12/21/23 at 1200, Until Discontinued, Routine 0017 (Given - Provider: Johanne Guerrero RN)1220 (Not Given - Provider: Mike Cruz RN - Reason: Other - Comment: prior to shift)1230 (Given - Provider: Dora Rowell RN)1700 (Given - Provider: Mona Cope RN)2321 (Given - Provider: Mona Cope RN) 0611 (Given - Provider: Mona Cope RN)1500 (Given - Provider: Michelle Rojo RN - Comment: Pt sleeping given when awake)1755 (Given - Provider: Alla Miguel RN) 0002 (Not Given - Provider: Alla Miguel RN - Reason: Other - Comment: pt sleeping comfortablly)0551 (Given - Provider: Alla Miguel RN)1320 (Given - Provider: Elizabeth Wilde RN) apixaban (ELIQUIS) tablet 5 mg 5 mg, oral, 2 TIMES DAILY, First dose on Wed12/23/23 at 2100, Until Discontinued, Routine 203 (Given - Provider: Alla Miguel RN) 1207 (Given - Provider: Elizabeth Wilde, VIDYA - Comment: pt in HD) atorvastatin (LIPITOR) tablet 40 mg 40 mg, oral, DAILY, First dose on Wed12/20/23 at 0900, Until Discontinued, Routine 1230 (Given - Provider: Dora Rowell RN) 0806 (Given - Provider: Michelle Rojo, VIDYA) 1200 (Given - Provider: Elizabeth Wilde RN - Comment: pt in HD) calcium carbonate (TUMS) tablet 500 mg (200 mg elemental calcium) 2 Tablet 2 Tablet, oral, EVERY WED, WED, WED (DIALYSIS), First dose on Wed12/20/23 at 1000, Until Discontinued, Routine 0923 (Given - Provider: Nava Timmons RN) 0936 (Given - Provider: Domingo Jarrett RN) carvediloL (COREG) tablet 12.5 mg 12.5 mg, oral, 2 TIMES DAILY WITH BREAKFAST & DINNER, First dose (after last modification) on Wed12/23/23 at 1700, Until Discontinued, Routine 1755 (Given - Provider: Alla Miguel RN) 1159 (Given - Provider: Elizabeth Wilde RN - Comment: pt in HD) carvediloL (COREG) tablet 6.25 mg (CANCELED) 6.25 mg, oral, 2 TIMES DAILY WITH BREAKFAST & DINNER, First dose (after last modification) on Wed12/22/23 at 1700, Until Discontinued, Routine 1659 (Given - Provider: Mona Cope, RN) 0806 (Given - Provider: Michelle Rojo, VIDYA) dilTIAZem (CARDIZEM CD) ER capsule 120 mg 120 mg, oral, DAILY, First dose on Wed12/22/23 at 0830, Until Discontinued, STAT 0829 (Given - Provider: Fiona Saunders RN) 0806 (Given - Provider: Michelle Rojo, RN) 1159 (Given - Provider: Elizabeth Wilde, VIDYA - Comment: pt in HD) dilTIAZem (CARDIZEM) tablet 30 mg (CANCELED) 30 mg, oral, EVERY 6 HOURS, First dose on Wed12/21/23 at 1300, Until Discontinued, Routine 0017 (Given - Provider: Johanne Guerrero RN)0814 (Not Given - Provider: Mike Cruz RN - Reason: Other - Comment: not given on HS shift, doctor discussed, new order placed) DULoxetine (CYMBALTA) delayed release capsule 20 mg 20 mg, oral, 2 TIMES DAILY, First dose (after last modification) on Wed12/21/23 at 0900, Until Discontinued, Routine 1230 (Given - Provider: Dora Rowell RN)3 (Given - Provider: Mona Cope, VIDYA) 0805 (Given - Provider: Michelle Rojo, VIDYA)2035 (Given - Provider: Alla Miguel RN) 1200 (Given - Provider: Elizabeth Wilde RN - Comment: pt in HD) epoetin ken (EPOGEN) 20,000 unit/2 mL injection 1,500 Units 1,500 Units, intravenous, EVERY WED, WED, WED (DIALYSIS), First dose on Wed12/20/23 at 1000, Until Discontinued, Routine 0852 (Given - Provider: Nava Timmons RN) 0936 (Given - Provider: Domingo Jarrett RN) ertapenem (INVANZ) 1,000 mg in sodium chloride (NS MBP) 100 mL IVPB (COMPLETED) 1,000 mg, intravenous, Administer over 30 Minutes, Once (Time Specified), 1 dose, On Wed12/24/23 at 1130, Type of Therapy: Empiric, Suspected Indication (Select all that apply): Other, Other Indication: diabetic foot infection, Controlled Antibiotic Has ID Approved? Yes, ID Provider Consulted: Daniel Shelby MD, Routine 1200 (Given - Provider: Elizabeth Wilde, VIDYA) ertapenem (INVANZ) 500 mg in sodium chloride (NS) 0.9 % 50 mL IVPB (CANCELED) 500 mg, intravenous, Administer over 30 Minutes, EVERY 24 HOURS, 7 doses, First dose on Wed12/20/23 at 1700, Last dose on Wed12/26/23 at 1700, Type of Therapy: Empiric, Suspected Indication (Select all that apply): Other, Other Indication: diabetic foot infection, Controlled Antibiotic Has ID Approved? Yes, ID Provider Consulted: Daniel Shelby MD, Routine 1702 (Given - Provider: Mona Cope RN) 170 (Given - Provider: Alla Miguel, VIDYA) famotidine (PEPCID) tablet 40 mg 40 mg, oral, DAILY, First dose on Wed12/20/23 at 0900, Until Discontinued, Routine 1230 (Given - Provider: Dora Rowell RN) 0805 (Given - Provider: Michelle Rojo, VIDYA) 1200 (Given - Provider: Elizabeth Wilde RN - Comment: pt in HD) fluticasone propionate (FLOVENT) 110 mcg/actuation inhaler 1 Puff 1 Puff, inhalation, 2 TIMES DAILY, First dose on Wed12/20/23 at 0900, Until Discontinued, Routine 1249 (Not Given - Provider: Mike Cruz RN - Reason: Patient/family refused)2052 (Given - Provider: Mona Cope RN) 0811 (Not Given - Provider: Michelle Rojo, VIDYA - Reason: Patient/family refused)2044 (Given - Provider: Alla Miguel, VIDYA) 1206 (Not Given - Provider: Elizabeth Wilde RN - Reason: Patient/family refused) heparin injection 5,000 Units (CANCELED) 5,000 Units, subcutaneous, EVERY 12 HOURS, First dose (after last modification) on Wed12/20/23 at 2100, Until Discontinued, Routine 1230 (Given - Provider: Dora Rowell RN)2052 (Given - Provider: Mona Cope RN) 0805 (Given - Provider: Michelle Rojo, VIDYA) insulin aspart U-100 (NOVOLOG FLEXPEN) injection subcutaneous, 3 TIMES DAILY WITH MEALS, First dose on Wed12/20/23 at 0800, Until Discontinued, Routine 0857 (Not Given - Provider: Nava Timmons RN - Reason: Other - Comment: pt declines breakfast)1406 (Not Given - Provider: Mike Cruz RN - Reason: Patient/family refused)1804 (Not Given - Provider: Mona Cope RN - Reason: Order parameters not met - Comment: blood glucose 174) 0844 (Given - Provider: Michelle Rojo RN)1503 (Given - Provider: Michelle Rojo RN)1802 (Given - Provider: Alla Miguel RN) 0852 (Not Given - Provider: Domingo Jarrett RN - Reason: Other - Comment: BS 128)1234 (Not Given - Provider: Elizabeth Wilde RN - Reason: Order parameters not met - Comment: bgfs 161) insulin glargine (LANTUS SOLOSTAR/SEMGLEE) injection pen 32 Units 32 Units, subcutaneous, ONCE DAILY L.A. INSULIN, First dose (after last modification) on Wed12/21/23 at 1000, Until Discontinued, Routine 1406 (Given - Provider: Mike Cruz, VIDYA) 0900 (Given - Provider: Michelle Rojo RN) 1204 (Given - Provider: Elizabeth Wilde RN - Comment: pt in HD) lidocaine 5 % (LIDODERM) patch 1 Patch 1 Patch, transdermal, Administer over 12 Hours, DAILY, First dose on Wed12/20/23 at 2130, Until Discontinued, Routine 1233 (Not Given - Provider: Dora Rowell RN - Reason: Patient/family refused) 0810 (Not Given - Provider: Michelle Rojo RN - Reason: Patient/family refused) 1201 (Not Given - Provider: Elizabeth Wilde RN - Reason: Patient/family refused) nicotine (NICODERM CQ) 21 mg/24 hr patch 1 Patch 1 Patch, transdermal, DAILY, First dose on Wed12/20/23 at 0900, Until Discontinued, Routine 1233 (Not Given - Provider: Dora Rowell RN - Reason: Patient/family refused) 0810 (Not Given - Provider: Michelle Rojo RN - Reason: Patient/family refused) 1201 (Not Given - Provider: Elizabeth Wilde RN - Reason: Patient/family refused) pregabalin (LYRICA) capsule 100 mg 100 mg, oral, 2 TIMES DAILY, First dose (after last modification) on Wed12/21/23 at 2100, Until Discontinued, Routine 1230 (Given - Provider: Dora Rowell RN)2053 (Given - Provider: Mona Cope RN) 0805 (Given - Provider: Michelle Rojo RN)2035 (Given - Provider: Alla Miguel RN) 1202 (Given - Provider: Elizabeth Wilde RN - Comment: pt in HD) sevelamer carbonate (RENVELA) tablet 1,600 mg 1,600 mg, oral, 3 TIMES DAILY WITH MEALS, First dose on Wed12/20/23 at 1700, Until Discontinued 1230 (Given - Provider: Dora Rowell RN)1235 (Hold - Provider: Dora Rowell RN - Reason: Other - Comment: dialysis, noon dose given)1700 (Given - Provider: Mona Cope RN) 0805 (Given - Provider: Michelle Rojo, VIDYA)1500 (Given - Provider: Michelle Rojo, VIDYA)1755 (Given - Provider: Alla Miguel RN) 1202 (Given - Provider: Elizabeth Wilde RN - Comment: pt in HD)1320 (Not Given - Provider: Elizabeth Wilde RN - Reason: Patient/family refused) vancomycin 2,000 mg central line syringe (COMPLETED) 2,000 mg, central line, Administer over 120 Minutes, ONCE IN DIALYSIS, 1 dose, On Wed12/24/23 at 0915, STAT, Suspected Indication (Select all that apply): Moderate or Severe DM foot infection 0936 (Given - Provider: Domingo Jarrett RN) PRN Medication Order 12/22/2023 12/23/2023 12/24/2023 dextrose 50 % solution 12.5 g 12.5 g (25 mL), intravenous, PRN, Starting on Wed12/20/23 at 0105, Until Wed12/24/23 at 1526, Low Blood Sugar, Routine glucagon injection 1 mg 1 mg, intramuscular, As needed, Starting on Wed12/20/23 at 0105, Until Wed12/24/23 at 1526, Low Blood Sugar, Routine HYDROmorphone (DILAUDID) tablet 1 mg 1 mg, oral, EVERY 4 HOURS PRN, Starting on Wed12/21/23 at 0911, Until Wed12/24/23 at 1526, Pain, Routine 2052 (Given - Provider: Mona Cope RN) 0044 (Given - Provider: Mona Cope RN)0610 (Given - Provider: Mona Cope RN)1035 (Given - Provider: Michelle Rojo, RN)1500 (Given - Provider: Michelle Rojo, RN)2034 (Given - Provider: Alla Miguel, VIDYA) 0742 (Given - Provider: Elizabeth Wilde RN) lidocaine (PF) 10 mg/mL (1 %) injection 2 mg 2 mg, intradermal, PRN, 4 doses, Starting on Wed12/20/23 at 0105, Until Wed12/24/23 at 1526, peripheral intravenous catheter placement, Routine ondansetron (ZOFRAN-ODT) disintegrating tablet 4 mg 4 mg, oral, EVERY 4 HOURS PRN, Starting on Wed12/21/23 at 0650, Until Wed12/24/23 at 1526, Nausea, Routine polyethylene glycol 3350 (MIRALAX) packet 17 g 17 g, oral, DAILY PRN, Starting on Wed12/21/23 at 0728, Until Wed12/24/23 at 1526, Constipation, Routine ramelteon (ROZEREM) tablet 8 mg 8 mg, oral, AT BEDTIME PRN, Starting on Wed12/20/23 at 0105, Until Wed12/24/23 at 1526, Sleep, Routine 2052 (Given - Provider: Mona Cope RN) 2034 (Given - Provider: Alla Miguel, VIDYA) documented in this encounter Orders Medications Ordered That Davide ht Not Have Been Administered Count Last Ordered Date First Ordered Date carvediloL (COREG) tablet 12.5 mg 1 024 metoprolol TARtrate (LOPRESS OR) tablet 25 mg 1 12/21/2023 ondansetron (ZOFRAN-ODT) dis integrating tablet 4 mg 1 12/21/2023 polyethylene glycol 3350 (IN RALAX) packet 17 g 1 12/21/2023 cefTRIAXone (ROCEPHIN) 2,000 mg in sodium chloride (NS MBP) 50 mL IVPB 1 12/20/2023 dextrose 50 % solution 12.5 g 1 12/20/2023 DULoxetine (CYMBALTA) delaye d release capsule 20 mg 2 12/20/2023 glucagon injection 1 mg 1 12/20/2023 heparin injection 5,000 Units 2 12/20/2023 HYDROmorphone (DILAUDID) tablet 1 mg 1 11/26 lidocaine (PF) 10 mg/mL (1 % ) injection 2 mg 1 12/20/2023 nicotine (NICODERM CQ) 21 mg /24 hr patch 1 Patch 1 12/20/2023 pregabalin (LYRICA) capsule 150 mg 1 2023 sevelamer carbonate (RENVELA ) tablet 1,600 mg 1 12/20/2023 Diet Count Last Ordered Date First Orde red Date DISCHARGE DIET 1 12/24/2023 Nursing Count Last Ordered Date First Orde red Date BATHING INSTRUCTIONS 1 12/24/2023 DRIVING INSTRUCTIONS 2 12/24/2023 WOUND CARE INSTRUCTIONS 2 12/24/2023 Consult Count Last Ordered Date First Orde red Date CONSULT DIABETES EDUCATION 1 12/20/2023 OT Count Last Ordered Date First Orde red Date OT EVALUATION AND TREAT 1 12/20/2023 PT Count Last Ordered Date First Orde red Date PT EVALUATION AND TREAT 1 12/20/2023 Wound Ostomy Count Last Ordered Date First Orde red Date WOUND EVALUATION AND TREAT 1 12/20/2023 IV Count Last Ordered Date First Orde red Date IV REQUEST 2 12/20/2023 Dialysis Count Last Ordered Date First Orde red Date HEMODIALYSIS 3 12/24/2023 12/20/2023 Admission Count Last Ordered Date First Orde red Date ADMIT TO INPATIENT 1 12/20/2023 Transfer Count Last Ordered Date First Orde red Date ED BED REQUEST 1 12/19/2023 Discharge Count Last Ordered Date First Orde red Date DISCHARGE PATIENT 1 12/24/2023 Legal Count Last Ordered Date First Orde red Date MISCELLANEOUS DISCHARGE INSTRUCTIONS 1 10/2023 documented in this encounter Additional Health Concerns Infection Onset Date Last Indicated Resolved Time R/O COVID-19 12/20/2023 12/20/2023 12/20/2023 7:14 EST documented as of this encounter Care Teams Chief Internal Auditor Relationship Specialty Start Date End Date Mike Greer MD [address] [facility] [place] [address] PCP - General 07/07/23 documented as of this encounter
--- OUTSIDE RECORDS SUMMARY | 2024-12-05 12:12 | XMS_ITS | Encounter Summary ---
Author Organization [facility] Address [address] [place] [address] Care Team Providers Care Operating Systems Programmer Name Role Phone Ken Greer MD Primary Care Provider [phone] Encounter Details Date Type Department Care Team (Latest Contact Info) Description 12/17/2023 0:05 EST - 12/17/2023 23:59 EST Hospital Encounter [facility] Secondary Reads [place] Discharge Disposition: [...] 12/06/2024 6:45 EST Treatment [facility] [address] [place], [place] [id number] Carlota Jin MD 1 [facility] [address] [place] [phone] 12/08/2024 6:45 EST Treatment [facility] [address] [place] [id number] Carlota Jin MD 1 [facility], [facility] [address] [place] [phone] 12/11/2024 6:45 EST Treatment [facility] [address] [place] [id number] Carlota Jin MD 1 [facility], [facility] [address] [place] [phone] 12/13/2024 6:45 EST Treatment [facility] [place] [address] [place], [place] [id number] Carlota Jin MD 1 [facility], [facility] [address] [place] [phone] 12/15/2024 6:45 EST Treatment [facility] [place] [address] [place], [place] [id number] Carlota Jin MD 1 [facility], [facility] [address] [place] [phone] 12/18/2024 6:45 EST Treatment [facility] [place] [address] [place], [place] [id number] Carlota Jin MD 1 [facility], [facility] [address] [place] [phone] 12/20/2024 6:45 EST Treatment [facility] [address] [place], [place] [id number] Carlota Jin MD 1 [facility], [facility] [address] [place] [phone] 12/22/2024 6:45 EST Treatment [facility] [address] [place], [place] [id number] Carlota Jin MD 1 [facility], [facility] [address] [place] [phone] 12/25/2024 6:45 EST Treatment [facility] [place] [address] [place], [place] [id number] Carlota Jin MD 1 [facility], [facility] [address] [place] [phone] 12/27/2024 6:45 EST Treatment [facility] [place] [address] [place], [place] [id number] Carlota Jin MD 1 [facility], [facility] [address] [place] [phone] 12/29/2024 6:45 EST Treatment [facility] [place] [address] [place], [place] [id number] Carlota Jin MD 1 [facility], [facility] [address] [place] [phone] 01/01/2025 6:45 EDT Treatment [facility] [place] [address] [place], [place] [id number] Carlota Jin MD 1 [facility], [facility] [address] [place] [phone] 01/03/2025 6:45 EDT Treatment [facility] [place] [address] [place], [place] [id number] Carlota Jin MD 1 [facility], [facility] [address] [place] [phone] 01/05/2025 6:45 EDT Treatment [facility] [place] [address] [place], [place] [id number] Carlota Jin MD 1 [facility], Level [address] [place] [phone] 01/08/2025 6:45 EDT Treatment [facility] [place] [address] [place], [place] [address] Carlota Jin MD 1 [facility], [facility] [address] [place] [phone] 01/10/2025 6:45 EDT Treatment [facility] [place] [address] [place], [place] [id number] Carlota Jin MD 1 [facility], [facility] [address] [place] [phone] 01/12/2025 6:45 EDT Treatment [facility] [place] [address] [place] [address] Carlota Jin MD 1 [facility], [facility] [address] [place] [phone] 01/15/2025 6:45 EDT Treatment [facility] [address] [place] [address] Carlota Jin MD 1 [facility], [facility] [address] [place] [phone] 01/17/2025 6:45 EDT Treatment [facility] [address] [place], [place] [id number] Carlota Jin MD 1 [facility], [facility] [address] [place] [phone] 01/19/2025 6:45 EDT Treatment [facility] [place] [address] [place], [place] [id number] Carlota Jin MD 1 [facility], [facility] [address] [place] [phone] 01/22/2025 6:45 EDT Treatment [facility] [place] [address] [place], [place] [id number] Carlota Jin MD 1 [facility], [facility] [address] [place] [phone] 01/24/2025 6:45 EDT Treatment [facility] [place] [address] [place], [place] [id number] Carlota Jin MD [address] [place] [address], [facility] [address] [place] [phone] 01/26/2025 6:45 EDT Treatment [facility] [place] [address] [place], [place] [id number] Carlota Jin MD 1 [facility], [facility] [address] [place] [phone] 01/29/2025 6:45 EDT Treatment [facility] [place] [address] [place], [place] [id number] Carlota Jin MD 1 [facility], [facility] [address] [place] [phone] 01/31/2025 6:45 EDT Treatment [facility] [place] [address] [place], [place] [id number] Carlota Jin MD 1 [facility], [facility] [address] [place] [phone] 02/02/2025 6:45 EDT Treatment [facility] [place] [address] [place], [place] [id number] Carlota Jin MD 1 [facility], [facility] [address] [place] [phone] 02/05/2025 6:45 EDT Treatment [facility] [place] [address] [place], [place] [id number] Carlota Jin MD 1 [facility], [address] [phone] 02/07/2025 6:45 EDT Treatment [facility] [place] [address] [place], [place] [id number] Carlota Jin MD 1 [facility], [address] [phone] 02/09/2025 6:45 EDT Treatment [facility] [place] [address] [place], [place] [id number] Carlota Jin MD 1 [facility], [facility] [address] [place] [phone] 02/12/2025 6:45 EDT Treatment [facility] [place] [address] [place], [place] [id number] Carlota Jin MD 1 [facility], [facility] [address] [place] [phone] 02/14/2025 6:45 EDT Treatment [facility] [place] [address] [place], [place] [id number] Carlota Jin MD 1 [facility], [facility] [address] [place] [phone] 02/16/2025 6:45 EDT Treatment [facility] [place] [address] [place], [place] [id number] Carlota Jin MD 1 [facility], [facility] [address] [place] [phone] 02/19/2025 6:45 EDT Treatment [facility] [place] [address] [place], [place] [id number] Carlota Jin MD [address] [place] [address], [facility] [address] [place] [phone] 02/21/2025 6:45 EDT Treatment [facility] - [place] [address] [place], [place] [id number] Carlota Jin MD [address] [place] [address], [facility] [address] [place] [phone] documented as of this encounter Procedures Procedure Name Priority Date/Time Associated Diagnosis Comments XR OUTSIDE IMAGES CHEST STAT 12/17/2023 8:32 EST documented in this encounter Results * XR OUTSIDE IMAGES CHEST (12/17/2023 8:32 EST) Narrative 12/20/2023 8:32 EST This is a non-reportable exam. us External Imaging IMG OTHER IMAGING ORDERABLES Fi nal Result documented in this encounter Visit Diagnoses Not on filedocumented in this encounter Care Teams Operating Systems Programmer Relationship Specialty Start Date End Date Ken Greer MD [address] [facility] [address] PCP - General 07/07/23 documented as of this encounter
--- OUTSIDE RECORDS SUMMARY | 2024-12-05 12:12 | XMS_ITS | Encounter Summary ---
Author Organization [facility] Address [address] [place] [address] Care Team Providers Care Knot Tying Operator Name Role Phone Ken Greer MD Primary Care Provider [phone] Encounter Details Date Type Department Care Team (Latest Contact Info) Description 12/19/2023 - 12/19/2023 13:07 EST Hospital Encounter [facility] Secondary Reads [place] Discharge Disposition: Home [...] insulin pen needles 32G x 5/32 Brand: [employer] Ultra Fine Anny. ISS TID and levemir once daily 100 Each 11 12/24/2023 amLODIPine (NORVASC) 10 mg tablet Take 1 Tablet by mouth daily. 4 amoxicillin (AMOXIL) 500 mg capsule Take 1 Capsule by mouth 2 times daily. 12/17/2023 4 apixaban (ELIQUIS) 5 mg tablet Take 1 Tablet by mouth 2 times daily for 90 days. 180 Tablet 12/24/2023 4 apixaban (ELIQUIS) 5 mg tablet Take 1 Tablet by mouth 2 times daily for 90 days. 180 Tablet 12/23/2023 4 DULoxetine (CYMBALTA) 20 mg delayed release capsule Take 1 Capsule by mouth 2 times daily. 12/03/2023 4 famotidine (PEPCID) 40 mg tablet Take 1 [...] Units into the skin daily. 12/24/2023 4 LEVEMIR FLEXPEN 100 unit/mL (3 mL) injectable pen Inject 30 Units into the skin at bedtime. 01/19/2023 4 levOFLOXacin (LEVAQUIN) 750 mg tablet 12/17/2023 4 liraglutide (VICTOZA 2-JULY) 0.6 mg/0.1 mL (18 mg/3 mL) injectable pen Inject 1.8 mg into the skin. 11/05/2023 4 MULTIVITAMIN ORAL Take by mouth. 4 nicotine (NICODERM CQ) 21 mg/[address] 1 Patch onto the skin daily. 30 Each 11/11/2023 4 nortriptyline (PAMELOR) 25 mg capsule Take 1 Capsule by mouth. 11/05/2023 4 olmesartan (BENICAR) 5 mg tablet TAKE ONE TABLET BY MOUTH EVERY DAY STOP HCTZ 08/04/2023 4 oxyCODONE-acetamino phen (PERCOCET) 5-325 mg per [...] Max: 200 mg 60 Capsule 12/24/2023 4 pregabalin (LYRICA) 200 mg capsule Take 1 Capsule by mouth 2 times daily. 08/03/2023 4 SANTYL ointment 12/07/2023 4 sevelamer hydrochloride (RENAGEL) 800 mg tablet Take 2 Tablets by mouth 3 times daily with meals. 4 sildenafil citrate (VIAGRA) 100 mg tablet Take 1 Tablet by mouth as needed. 11/05/2023 4 documented as of this encounter Discharge Disposition Disposition Code Departure Means Destination Home or Self Care documented in this encounter Plan of Treatment Upcoming Encounters Date Type Department Care Team (Late st Contact Info) Description 12/06/2024 6:45 EST Treatment [facility] [address] [place], [place] [id number] Carlota Jin MD [address] [place] [address] [address] [place] [phone] 12/08/2024 6:45 EST [facility] [address] [place], [place] [id number] Carlota Jin MD [address] [place] [phone] 12/11/2024 6:45 EST Treatment [facility] [address] [place], [place] [id number] Carlota Jin MD [address] [place] [address] [address] [place] [phone] 12/13/2024 6:45 EST [facility] [address] [place], [place] [id number] Carlota Jin MD [address] [place] [address] [address] [place] [phone] 12/15/2024 6:45 EST Treatment [facility] [place] [address] [place], [place] [id number] Carlota Jin MD 1 [facility] [address] [place] [phone] 12/18/2024 6:45 EST Treatment [facility] [place] [address] [place], [place] [id number] Carlota Jin MD 1 [facility], [facility] [address] [place] [phone] 12/20/2024 6:45 EST Treatment [facility] [address] [place], [place] [id number] Carlota Jin MD [address] [place] [address], [facility] [address] [place] [phone] 12/22/2024 6:45 EST Treatment [facility] [address] [place], [place] [id number] Carlota Jin MD 1 [facility], [facility] [address] [place] [phone] 12/25/2024 6:45 EST Treatment [facility] [place] [address] [place], [place] [id number] Carlota Jin MD 1 [facility], [facility] [address] [place] [phone] 12/27/2024 6:45 EST Treatment [facility] [address] [place], [place] [id number] Carlota Jin MD 1 [facility] [address] [place] [phone] 12/29/2024 6:45 EST Treatment [facility] [place] [address] [place], [place] [id number] Carlota Jin MD 1 [facility], [facility] [address] [place] [phone] 01/01/2025 6:45 EDT Treatment [facility] [place] [address] [place], [place] [id number] Carlota Jin MD 1 [facility], [facility] [address] [place] [phone] 01/03/2025 6:45 EDT Treatment [facility] [place] [address] [place], [place] [id number] Carlota Jin MD 1 [facility], [facility] [address] [place] [phone] 01/05/2025 6:45 EDT Treatment [facility] [address] [place], [place] [id number] Carlota Jin MD 1 [facility], [facility] [address] [place] [phone] 01/08/2025 6:45 EDT Treatment [facility] [place] [address] [place], [place] [id number] Carlota Jin MD 1 [facility], [facility] [address] [place] [phone] 01/10/2025 6:45 EDT Treatment [facility] [place] [address] [place], [place] [id number] Carlota Jin MD 1 [facility], [facility] [address] [place] [phone] 01/12/2025 6:45 EDT Treatment [facility] [place] [address] [place], [place] [id number] Carlota Jin MD 1 [facility], [facility] [address] [place] [phone] 01/15/2025 6:45 EDT Treatment [facility] - [place] [address] [place], [place] [id number] Carlota Jin MD 1 [facility], [facility] [address] [place] [phone] 01/17/2025 6:45 EDT Treatment [facility] [place] [address] [place], [place] [id number] Carlota Jin MD 1 [facility], [facility] [address] [place] [phone] 01/19/2025 6:45 EDT Treatment [facility] - [place] [address] [place], [place] [id number] Carlota Jin MD 1 [facility], [facility] [address] [place] [phone] 01/22/2025 6:45 EDT Treatment [facility] [place] [address] [place], [place] [address] Carlota Jin MD 1 [facility], [facility] [address] [place] [phone] 01/24/2025 6:45 EDT Treatment [facility] [place] [address] [place] [address] Carlota Jin MD 1 [facility] [address] [place] [phone] 01/26/2025 6:45 EDT Treatment [facility] [place] [address] [place], [place] [id number] Carlota Jin MD 1 [facility], [address] [phone] 01/29/2025 6:45 EDT Treatment [facility] [place] [address] [place], [place] [id number] Carlota Jin MD 1 [facility], [address] [phone] 01/31/2025 6:45 EDT Treatment [facility] [place] [address] [place], [place] [id number] Carlota Jin MD 1 [facility] [address] [place] [phone] 02/02/2025 6:45 EDT Treatment [facility] - [place] [address] [place], [place] [id number] Carlota Jin MD 1 [facility] [address] [place] [phone] 02/05/2025 6:45 EDT Treatment [facility] [place] [address] [place], [place] [id number] Carlota Jin MD 1 [facility] [address] [place] [phone] 02/07/2025 6:45 EDT Treatment [facility] - [place] [address] [place], [place] [id number] Carlota Jin MD 1 [facility], [facility] [address] [place] [phone] 02/09/2025 6:45 EDT Treatment [facility] - [place] [address] [place], [place] [id number] Carlota Jin MD [address] [place] [address], [address] [phone] 02/12/2025 6:45 EDT Treatment [facility] [place] [address] [place], [place] [id number] Carlota Jin MD [address] [place] [address], [facility] [address] [place] [phone] 02/14/2025 6:45 EDT Treatment [facility] [place] [address] [place], [place] [id number] Carlota Jin MD 1 [facility] [address] [place] [phone] 02/16/2025 6:45 EDT Treatment [facility] [place] [address] [place], [place] [id number] Carlota Jin MD 1 [facility] [address] [place] [phone] 02/19/2025 6:45 EDT Treatment [facility] [place] [address] [place], [place] [id number] Carlota Jin MD 1 [facility] [address] [place] [phone] 02/21/2025 6:45 EDT Treatment [facility] [place] [address] [place], [place] [id number] Carlota Jin MD 1 [facility] [address] [place] [phone] documented as of this encounter Visit Diagnoses Not on filedocumented in this encounter Care Teams Knot Tying Operator Relationship Specialty Start Date End Date Ken Greer MD [facility] [place] [address] PCP - General 07/07/23 documented as of this encounter
--- OUTSIDE RECORDS SUMMARY | 2024-12-05 12:12 | XMS_ITS | Encounter Summary ---
Author Organization [facility] Address [address] [place] [address] Care Team Providers Care Production Control Manager Name Role Phone Ken Greer MD Primary Care Provider [phone] Encounter Details Date Type Department Care Team (Latest Contact Info) Description 12/19/2023 13:08 EST - 12/19/2023 16:00 EST Hospital Encounter [facility] Secondary Reads [place] Discharge Disposition: Home [...] 6:45 EST Treatment [facility] [address] [place], [place] [id number] Carlota Jin MD [address] [place] [address] 2 [place] [phone] 12/08/2024 6:45 EST Treatment [facility] [address] [place], [place] [id number] Carlota Jin MD [address] [place] [phone] 12/11/2024 6:45 EST Treatment [facility] [address] [place], [place] [id number] Carlota Jin MD [address] [place] [address] 2 [place] [phone] 12/13/2024 6:45 EST Treatment [facility] [address] [place], [place] [id number] Carlota Jin MD [address] [place] [address] 2 [place] [phone] 12/15/2024 6:45 EST Treatment [facility] [place] [address] [place], [place] [id number] Carlota Jin MD 1 [facility], [facility] 2 [place] [phone] 12/18/2024 6:45 EST Treatment [facility] [place] [address] [place], [place] [id number] Carlota Jin MD 1 [facility], [facility] 2 [place] [phone] 12/20/2024 6:45 EST Treatment [facility] [place] [address] [place], [place] [id number] Carlota Jin MD 1 [facility], [facility] 2 [place] [phone] 12/22/2024 6:45 EST Treatment [facility] [place] [address] [place], [place] [id number] Carlota Jin MD 1 [facility], [facility] 2 [place] [phone] 12/25/2024 6:45 EST Treatment [facility] [place] [address] [place], [place] [id number] Carlota Jin MD 1 [facility], [facility] 2 [place] [phone] 12/27/2024 6:45 EST Treatment [facility] [place] [address] [place], [place] [id number] Carlota Jin MD 1 [facility], [facility] 2 [place] [phone] 12/29/2024 6:45 EST Treatment [facility] [place] [address] [place], [place] [id number] Carlota Jin MD 1 [facility] 2 [place] [phone] 01/01/2025 6:45 EDT Treatment [facility] [place] [address] [place], [place] [id number] Carlota Jin MD 1 [facility], [address] [phone] 01/03/2025 6:45 EDT Treatment [facility] [place] [address] [place], [place] [id number] Carlota Jin MD 1 [facility], [address] [phone] 01/05/2025 6:45 EDT Treatment [facility] [place] [address] [place], [place] [id number] Carlota Jin MD 1 [facility], [facility] 2 [place] [phone] 01/08/2025 6:45 EDT Treatment [facility] [place] [address] [place], [place] [id number] Carlota Jin MD 1 [facility], [facility] 2 [place] [phone] 01/10/2025 6:45 EDT Treatment [facility] [place] [address] [place], [place] [id number] Carlota Jin MD 1 [facility], [facility] 2 [place] [phone] 01/12/2025 6:45 EDT Treatment [facility] [place] [address] [place], [place] [id number] Carlota Jin MD 1 [facility], [facility] 2 [place] [phone] 01/15/2025 6:45 EDT Treatment [facility] [place] [address] [place], [place] [id number] Carlota Jin MD 1 [facility], [address] [phone] 01/17/2025 6:45 EDT Treatment [facility] [place] [address] [place], [place] [id number] Carlota Jin MD 1 [facility], [facility] 2 [place] [phone] 01/19/2025 6:45 EDT Treatment [facility] [place] [address] [place], [place] [id number] Carlota Jin MD 1 [facility], [facility] 2 [place] [phone] 01/22/2025 6:45 EDT Treatment [facility] [place] [address] [place], [place] [id number] Carlota Jin MD 1 [facility], [facility] 2 [place] [phone] 01/24/2025 6:45 EDT Treatment [facility] [place] [address] [place] [address] Carlota Jin MD 1 [facility], [address] [phone] 01/26/2025 6:45 EDT Treatment [facility] [place] [address] [place], [place] [id number] Carlota Jin MD 1 [facility], [address] [phone] 01/29/2025 6:45 EDT Treatment [facility] [place] [address] [place] [address] Carlota Jin MD 1 [facility], [address] [phone] 01/31/2025 6:45 EDT Treatment [facility] [place] [address] [place], [place] [id number] Carlota Jin MD 1 [facility], [address] [phone] 02/02/2025 6:45 EDT Treatment [facility] [place] [address] [place], [place] [id number] Carlota Jin MD 1 [facility], [facility] 2 [place] [phone] 02/05/2025 6:45 EDT Treatment [facility] [place] [address] [place], [place] [id number] Carlota Jin MD 1 [facility], [facility] 2 [place] [phone] 02/07/2025 6:45 EDT Treatment [facility] [place] [address] [place], [place] [id number] Carlota Jin MD 1 [facility], [facility] 2 [place] [phone] 02/09/2025 6:45 EDT Treatment [facility] [place] [address] [place], [place] [id number] Carlota Jin MD 1 [facility], [facility] 2 [place] [phone] 02/12/2025 6:45 EDT Treatment [facility] [place] [address] [place], [place] [id number] Carlota Jin MD 1 [facility], [facility] 2 [place] [phone] 02/14/2025 6:45 EDT Treatment [facility] [address] [place], [place] [id number] Carlota Jin MD 1 [facility], [facility] 2 [place] [phone] 02/16/2025 6:45 EDT Treatment [facility] [place] [address] [place], [place] [id number] Carlota Jin MD 1 [facility], [facility] 2 [place] [phone] 02/19/2025 6:45 EDT Treatment [facility] [place] [address] [place], [place] [id number] Carlota Jin MD 1 [facility], [facility] 2 [place] [phone] 02/21/2025 6:45 EDT Treatment [facility] [place] [address] [place], [place] [id number] Carlota Jin MD 1 [facility], [facility] 2 [place] [phone] documented as of this encounter Procedures Procedure Name Priority Date/Time Associated Diagnosis Comments CT OUTSIDE IMAGES LEFT LOWER EXTREMITY STAT 12/19/2023 13:09 EST documented in this encounter Results * CT OUTSIDE IMAGES LEFT LOWER EXTREMITY (12/19/2023 13:09 EST) Narrative 12/19/2023 13:09 EST This is a non-reportable exam. us External Imaging IMG OTHER IMAGING ORDERABLES Fi nal Result documented in this encounter Visit Diagnoses Not on filedocumented in this encounter Care Teams Production Control Manager Relationship Specialty Start Date End Date Ken Greer MD [address] [place] [address] PCP - General 07/07/23 documented as of this encounter
--- OUTSIDE RECORDS SUMMARY | 2024-12-05 12:12 | XMS_ITS | Encounter Summary ---
Author Organization [facility] Address [address] [place] [address] Care Team Providers Care Director Of Business Operations Name Role Phone Ken Greer MD Primary Care Provider [phone] Encounter Details Date Type Department Care Team (Latest Contact Info) Description 12/19/2023 Travel Social History Tobacco Use Types Packs/Day [...] Date of Assessment Author No 11/07/2023 1:52 EST Muza, Bongiw e, RN * Because of a physical, mental, [...] De Santiago RN documented in this encounter Plan of Treatment Upcoming Encounters Date Type Department Care Team (Late st Contact Info) Description 12/06/2024 6:45 EST Treatment [facility] [place] [address] [place], [place] [id number] Carlota Jin MD 1 [facility] 2 [place] [phone] 12/08/2024 6:45 EST Treatment [facility] [place] [address] [place], [place] [id number] Carlota Jin MD [address] [phone] 12/11/2024 6:45 EST [facility] [address] [place], [place] [id number] Carlota Jin MD 1 [facility], [facility] 2 [place] [phone] 12/13/2024 6:45 EST Treatment [facility] [address] [place], [place] [id number] Carlota Jin MD 1 [facility] 2 [place] [phone] 12/15/2024 6:45 EST Treatment [facility] [place] [address] [place], [place] [id number] Carlota Jin MD 1 [facility], [facility] 2 [place] [phone] 12/18/2024 6:45 EST Treatment [facility] [place] [address] [place], [place] [id number] Carlota Jin MD 1 [facility], [facility] 2 [place] [phone] 12/20/2024 6:45 EST Treatment [facility] [place] [address] [place], [place] [id number] Carlota Jin MD [address] [place] [address], [facility] 2 [place] [phone] 12/22/2024 6:45 EST Treatment [facility] [place] [address] [place], [place] [id number] Carlota Jin MD 1 [facility], [facility] 2 [place] [phone] 12/25/2024 6:45 EST Treatment [facility] [place] [address] [place], [place] [id number] Carlota Jin MD 1 [facility], [facility] 2 [place] [phone] 12/27/2024 6:45 EST Treatment [facility] [place] [address] [place], [place] [id number] Carlota Jin MD 1 [facility], [facility] 2 [place] [phone] 12/29/2024 6:45 EST Treatment [facility] [place] [address] [place], [place] [id number] Carlota Jin MD 1 [facility], [facility] 2 [place] [phone] 01/01/2025 6:45 EDT Treatment [facility] [place] [address] [place], [place] [id number] Carlota Jin MD 1 [facility], [facility] 2 [place] [phone] 01/03/2025 6:45 EDT Treatment [facility] [place] [address] [place], [place] [id number] Carlota Jin MD 1 [facility], [facility] 2 [place] [phone] 01/05/2025 6:45 EDT Treatment [facility] [address] [place], [place] [id number] Carlota Jin MD 1 [facility], [facility] 2 [place] [phone] 01/08/2025 6:45 EDT Treatment [facility] [place] [address] [place], [place] [id number] Carlota Jin MD 1 [facility], [facility] 2 [place] [phone] 01/10/2025 6:45 EDT Treatment [facility] [place] [address] [place], [place] [id number] Carlota Jin MD 1 [facility], [facility] 2 [place] [phone] 01/12/2025 6:45 EDT Treatment [facility] [place] [address] [place], [place] [id number] Carlota Jin MD 1 [facility], [facility] 2 [place] [phone] 01/15/2025 6:45 EDT Treatment [facility] [place] [address] [place], [place] [id number] Carlota Jin MD 1 [facility], [facility] 2 [place] [phone] 01/17/2025 6:45 EDT Treatment [facility] [place] [address] [place], [place] [id number] Carlota Jin MD 1 [facility], [facility] 2 [place] [phone] 01/19/2025 6:45 EDT Treatment [facility] [place] [address] [place], [place] [id number] Carlota Jin MD 1 [facility], [facility] 2 [place] [phone] 01/22/2025 6:45 EDT Treatment [facility] [place] [address] [place] [id number] Carlota Jin MD 1 [facility], [facility] 2 [place] [phone] 01/24/2025 6:45 EDT Treatment [facility] [place] [address] [place] [address] Carlota Jin MD 1 [facility], [facility] 2 [place] [phone] 01/26/2025 6:45 EDT Treatment [facility] [place] [address] [place], [place] [id number] Carlota Jin MD 1 [facility], [address] [phone] 01/29/2025 6:45 EDT Treatment [facility] [place] [address] [place], [place] [id number] Carlota Jin MD 1 [facility], [address] [phone] 01/31/2025 6:45 EDT Treatment [facility] [place] [address] [place], [place] [id number] Carlota Jin MD 1 [facility], [address] [phone] 02/02/2025 6:45 EDT Treatment [facility] [place] [address] [place], [place] [id number] Carlota Jin MD 1 [facility], [facility] 2 [place] [phone] 02/05/2025 6:45 EDT Treatment [facility] [place] [address] [place], [place] [id number] Carlota Jin MD 1 [facility], [facility] 2 [place] [phone] 02/07/2025 6:45 EDT Treatment [facility] [place] [address] [place], [place] [id number] Carlota Jin MD 1 [facility], [facility] 2 [place] [phone] 02/09/2025 6:45 EDT Treatment [facility] [place] [address] [place] [address] Carlota Jin MD 1 [facility], [facility] 2 [place] [phone] 02/12/2025 6:45 EDT Treatment [facility] [place] [address] [place], [place] [id number] Carlota Jin MD 1 [facility], [facility] 2 [place] [phone] 02/14/2025 6:45 EDT Treatment [facility] [place] [address] [place], [place] [id number] Carlota Jin MD 1 [facility], [facility] 2 [place] [phone] 02/16/2025 6:45 EDT Treatment [facility] [place] [address] [place], [place] [id number] Carlota Jin MD 1 [facility], [facility] 2 [place] [phone] 02/19/2025 6:45 EDT Treatment [facility] [address] [place], [place] [id number] Carlota Jin MD 1 [facility], [facility] 2 [place] [phone] 02/21/2025 6:45 EDT Treatment [facility] [address] [place], [place] [id number] Carlota Jin MD [address] [place] [address], [facility] [address] [place] [phone] documented as of this encounter Visit Diagnoses Not on filedocumented in this encounter Care Teams Director Of Business Operations Relationship Specialty Start Date End Date Ken [place] [address] PCP - General 07/07/23 documented as of this encounter
--- OUTSIDE RECORDS SUMMARY | 2024-12-05 12:12 | XMS_ITS | Encounter Summary ---
Author Organization [facility] Address [address] [place] [address] Care Team Providers Care Submarine Element Coordinator Name Role Phone Ken Greer MD Primary Care Provider [phone] Encounter Details Date Type Department Care Team (Late st Contact Info) Description 12/17/2023 Documentation Visit [address] [place], [place] [id number] Melissa Crespo, VIDYA Social History Tobacco Use Types Packs/Day [...] Date of Assessment Author No 11/07/2023 1:52 aSrthak De Santiago RN documented as of this [...] Info) Description 12/06/2024 6:45 EST Treatment [facility] [place] [address] [place], [place] [id number] Carlota Jin MD 1 [facility], [facility] [address] [place] [phone] 12/08/2024 6:45 EST Treatment [facility] [place] [address] [place], [place] [id number] Carlota Jin MD 1 [facility], [facility] [address] [place] [phone] 12/11/2024 6:45 EST Treatment [facility] [place] [address] [place], [place] [id number] Carlota Jin MD 1 [facility], [facility] [address] [place] [phone] 12/13/2024 6:45 EST Treatment [facility] [address] [place], [place] [id number] Carlota Jin MD 1 [facility] [address] [place] [phone] 12/15/2024 6:45 EST Treatment [facility] [place] [address] [place], [place] [id number] Carlota Jin MD 1 [facility], [facility] [address] [place] [phone] 12/18/2024 6:45 EST Treatment [facility] [place] [address] [place], [place] [id number] Carlota Jin MD 1 [facility], [facility] [address] [place] [phone] 12/20/2024 6:45 EST Treatment [facility] [place] [address] [place], [place] [id number] Carlota Jin MD 1 [facility], [facility] [address] [place] [phone] 12/22/2024 6:45 EST Treatment [facility] [place] [address] [place] [address] Carlota Jin MD 1 [facility], [facility] [address] [place] [phone] 12/25/2024 6:45 EST Treatment [facility] [place] [address] [place], [place] [id number] Carlota Jin MD 1 [facility], [facility] [address] [place] [phone] 12/27/2024 6:45 EST Treatment [facility] [place] [address] [place], [place] [id number] Carlota Jin MD 1 [facility], [facility] [address] [place] [phone] 12/29/2024 6:45 EST Treatment [facility] [place] [address] [place], [place] [id number] Carlota Jin MD 1 [facility], [facility] [address] [place] [phone] 01/01/2025 6:45 EDT Treatment [facility] [place] [address] [place], [place] [id number] Carlota Jin MD 1 [facility], [facility] [address] [place] [phone] 01/03/2025 6:45 EDT Treatment [facility] [place] [address] [place], [place] [id number] Carlota Jin MD [address] [place] [address], [facility] [address] [place] [phone] 01/05/2025 6:45 EDT Treatment [facility] [place] [address] [place], [place] [id number] Carlota Jin MD 1 [facility], [facility] [address] [place] [phone] 01/08/2025 6:45 EDT Treatment [facility] [place] [address] [place], [place] [id number] Carlota Jin MD 1 [facility], [facility] [address] [place] [phone] 01/10/2025 6:45 EDT Treatment [facility] [place] [address] [place], [place] [id number] Carlota Jin MD 1 [facility], [facility] [address] [place] [phone] 01/12/2025 6:45 EDT Treatment [facility] [place] [address] [place], [place] [id number] Carlota Jin MD 1 [facility], [facility] [address] [place] [phone] 01/15/2025 6:45 EDT Treatment [facility] [place] [address] [place] [address] Carlota Jin MD 1 [facility], [facility] [address] [place] [phone] 01/17/2025 6:45 EDT Treatment [facility] [place] [address] [place], [place] [id number] Carlota Jin MD 1 [facility], [facility] [address] [place] [phone] 01/19/2025 6:45 EDT Treatment [facility] [place] [address] [place], [place] [id number] Carlota Jin MD 1 [facility], [facility] [address] [place] [phone] 01/22/2025 6:45 EDT Treatment [facility] [place] [address] [place], [place] [id number] Carlota Jin MD 1 [facility], [facility] [address] [place] [phone] 01/24/2025 6:45 EDT Treatment [facility] [place] [address] [place], [place] [id number] Carlota Jin MD 1 [facility], [facility] [address] [place] [phone] 01/26/2025 6:45 EDT Treatment [facility] [place] [address] [place], [place] [id number] Carlota Jin MD 1 [facility], [facility] [address] [place] [phone] 01/29/2025 6:45 EDT Treatment [facility] [place] [address] [place], [place] [id number] Carlota Jin MD 1 [facility], [facility] [address] [place] [phone] 01/31/2025 6:45 EDT Treatment [facility] [place] [address] [place], [place] [id number] Carlota Jin MD 1 [facility], [facility] [address] [place] [phone] 02/02/2025 6:45 EDT Treatment [facility] [place] [address] [place], [place] [address] Carlota Jin MD 1 [facility], [facility] [address] [place] [phone] 02/05/2025 6:45 EDT Treatment [facility] [place] [address] [place] [address] Carlota Jin MD 1 [facility], [facility] [address] [place] [phone] 02/07/2025 6:45 EDT Treatment [facility] [place] [address] [place], [place] [id number] Carlota Jin MD 1 [facility], [facility] [address] [place] [phone] 02/09/2025 6:45 EDT Treatment [facility] [place] [address] [place], [place] [id number] Carlota Jin MD 1 [facility], [facility] [address] [place] [phone] 02/12/2025 6:45 EDT Treatment [facility] [place] [address] [place], [place] [phone] Carlota Jin MD 1 [facility], [facility] [address] [place] [phone] 02/14/2025 6:45 EDT Treatment [facility] [place] [address] [place], [place] [phone] Carlota Jin MD 1 [facility], [facility] [address] [place] [phone] 02/16/2025 6:45 EDT Treatment [facility] [address] [place], [place] [phone] Carlota Jin MD 1 [facility], [facility] [address] [place] [phone] 02/19/2025 6:45 EDT Treatment [facility] [address] [place], [place] [phone] Carlota Jin MD [address] [place] [address], [facility] [address] [place] [phone] 02/21/2025 6:45 EDT Treatment [facility] [address] [place], [place] [phone] Carlota Jin MD [address] [place] [address], [facility] [address] [place] [phone] documented as of this encounter Visit Diagnoses Not on filedocumented in this encounter Care Teams Submarine Element Coordinator Relationship Specialty Start Date End Date Ken Greer MD [facility] [place] [address] PCP - General 07/07/23 documented as of this encounter
--- OUTSIDE RECORDS SUMMARY | 2024-12-05 12:12 | XMS_ITS | Encounter Summary ---
Author Organization [facility] Address [address] [place] [address] Care Team Providers Care Seismic Computer Name Role Phone Ken Greer MD Primary Care Provider [phone] Encounter Details Date Type Department Care Team (Late st Contact Info) Description 11/22/2023 Plan of Care Documentation [facility] [address] [facility] [place] [address] Social History Tobacco Use Types Packs/Day Years Used Date Smoking Tobacco: Every Day Cigarettes Smokeless Tobacco: Never Alcohol Use Standard Drinks/Week Comments Yes 0 (1 standard drink = 0.6 oz pur e alcohol) Socially PHQ-2 Answer Date Recorded PHQ-2 SUBTOTAL 1 01/27/2023 Sex and Gender Information Value Date Recorded [...] De Santiago RN documented in this encounter Miscellaneous Notes * Dialysis Plan of Care Note - Alexa Estrada [facility] - 12/22/2023 1121 EST Dialysis Plan of Care Legal Internship's Assessment Patient initiated renal replacement therapy within the last 12 months: No Pt transferred from [facility] in [facility] and has been on dialysis since 02/14/2019 Patient Participated in Assessment: Yes Grievance Procedure Reviewed with Patient: Yes Current Living Situation: Lives with family Pt lives with his , Melissa, in their apartment in [place]. He rents the apartment and has a shared kitchen with the other tenant. The apartment has a back entry to his room and bathroom, but in order to get to the kitchen he has to go up 13 stairs which is difficult due to knee pain. He has land which he is building a home on. Social Support: Family composition: Mr Bruner and his , Melissa live in their apartment in [place]. He has severalbrothers and one sister as well as extended family but does not like to bother them for support. Luis have a son and a Daughter, both who live in [place]. His son requires his support in many ways after having survived childhood leukemia. He reports that his is his main support system, but he would consider his daughter, Lata Bruner, his secondary contact. Supportive friends: Yes Community/Taoist involvement: None Physical Limitations: :Limited mobility due to diabetic foot infection. Physical Limitations Present: Yes: knee pain makes it difficult to go up and down stair s, uses a wheelchair due to diabetic foot infection. Ambulation Status: Ambulates with assistive device Physical Aids Used by Patient: Walker, Wheelchair - Manual DME Vendor: none Current barriers to performing ADL???s: Pt notes that since his most recent hospitalization he is requiring assistance with most ADLs, he is no longer driving and he also notes that he has memory issues so he require assistance with medication management Current barriers to independence: Stairs to residence: 13 Change in Physical/Medical Status and Hospitalization Change in physical or medical status: Yes: pt notes limited mobility, increased need for assistancewith ADLs and medication management, and some memory issues Hospitalization in Previous 3 Months: Yes: 11/07-11/10 for diabetic foot infection Emergency Room Visit in Previous 3 Months: Yes: 11/07 with subsequent hospitalization Education: Highest level of education: high school diploma/GED Employment: Current Employment Status: Unemployed Desire to attend school/work: No Physically able to work: No Referred to vocational rehab/training: No Transportation Status: Transportation: Family Drives Payor: Pt receives [employer]zles reimbursement Financial/Insurance: Patient has Insurance: Yes Pay[place] / Plan[place] / Product Type: [place] A[place] / Prescription Coverage: Yes Changes in insurance coverage since last assessment: No Patient has pending insurance applications: No, however pt is currently working on Medicaid CFC application Patient has been educated on Medicare eligibility due to ESRD: Yes Pt already has Medicare Current income source: 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 [facility] Patient has financial concerns: Yes: Pt reports he has unpaid medical bills from previous dialysis facility due to losing secondary insurance when his was moved to candy department manager at her employer Communication: Physical or cognitive barriers to communication: No Factors affecting communication/understanding: Short term memory issues Primary Language: Guinean Patient is able to communicate in Guinean: Yes Patient requires interpretation services: No Patient is able to read printed material in Guinean: Yes Patient is able to read printed material in their primary language: Yes Services in Place: None Level of Understanding/Involvement: Patient knowledge related to kidney failure: Good Patient understanding of modality/treatment options: Good Patient is interested in pursuing home dialysis: No Patient has received information regarding transplantation: Yes Patient referral to transplant program: No Transplant Workup in Progress: No On active Transplant list: No Attends prescribed dialysis treatment sessions: Yes Patient Concerns: Concerns about diagnosis, Extensive home care needs, Financial concerns, and Safety Health Literacy: How often do you need to have someone help you when you read instructions, pamphlets, or other written material from your doctor or pharmacy? Never Mental Health: Current or past mental health issues including feelings of anxiety or depression: No Previous mental health diagnosis? No Past or current suicidal thinking/attempt? No Current emotional status: Difficulties in coping, Reports anxiety, Reports depression pt screened positively for mild depression. Pt declines therapy or discussing with PCP for med management statingJust one more medication to take. How does patient manage mental health: Pt utilizes medication for anxiety Patient/Family Strengths: Pt is friendly and engaging Interests/Spiritual/Taoist Practice: No spiritual practices Substance Use: Alcohol Use: No Drug Use: No Received treatment for alcohol or drug abuse: No Patient has concerns regarding alcohol/drug use: No Depression Screening: Is patient eligible to complete the PHQ-9: Yes: PHQ-2 = , Date patient last offered the PHQ-9: n/a KDQOL: KDQOL survey completion status: SHANNON will administer at 90 day POC Reason for not completing KDQOL: 12/03/23 Advance Directives: Patient has Advance Directive: No: Advance Directive education provided? Yes: Appointed Healthcare Agent? No Pt reports he has filled out Advance Directives, although [facility] does not have them on file. SHANNON provided pt with blank Advance Directives to fill out. Comment: SHANNON met with pt's , Melissa, and assisted with the following applications: Medicaid Choices for Care- Melissa is hopeful that she can be a hired caregiver for the pt. Melissa notes that the pt has recently not just physically had more challenges, but cognitively as well. She says that he sleeps most of the time when he gets home from dialysis (she works from 1pm-7pm) but on non dialysis days she is concerned that he will fall. She also notes that he forgets things like where she works. SHANNON suggested that pt get evaluated at [facility] Memory clinic, and that she discusses this concern at an appointment. Medicaid [employer] assistance - assistance with medication costs [employer] thiago for car payment assistance Melissa is working on gathering information to complete these applications. SHANNON will continue to assist and remain available * Dialysis Plan of Care Note - Shelley Eden, ADITI - 12/22/2023 1121 EST Dialysis Plan of Care Dietitian's Assessment Met with patient on 12/10/23 Family/caregivers or others present: none Information obtained from: patient and spouse Living situation/Family support: spouse Vocation/interests: working on building his house Functional Status / Physical Activity: highly functioning Barriers to Communication and Education: None Pertinent Problems: ESRD, DM, Hx ETOH Recent Hospitalizations: none noted Subjective: It remains difficult to have a conversation with Xander d/t his somnolence at HD and his [place] . He said he feels ok just remains very tired and said he sleeps often. He has to restart antibiotics for his foot infection. came to HD today we discussed nutritional issues - she said he sleeps most of the day . When is gone he does not take his binders - also noted he gets Corina on the way to HD and does not take binders - we discussed the ongoing issues of high phos and encouraged to take binders consistently . We also talked about high protein needs for wound healing and balanced meals for DM - he is working with [facility] [employer] [facility] to get at [facility] . Appetite: Good Appetite scale (0-10): Did not give a number UBW/Weight History: Stable Gastrointestinal: Constipation Cooking/shopping: patient and spouse Food allergies/intolerances: No Pica: No Dentition/dental hygiene: Dentures Chewing/swallowing issues: No Previous Nutrition Education Yes Skin integrity: Intact Urine output: Yes 2-3 x day Diabetes: Yes on insulin Diabetes Management: Self Monitoring of Blood Glucose Diet Recall: He is not specific anytime when asked to provide a recall. Per his B Corina egg ham and cheese croissant L yogurt and peaches D mary ellen frausto Favorite Food: Seafood , steak said he loves his veggies , shepherds pie and deli meat and eggs Fluid: Water, coffee, seltzer , juice Alcohol: HX ETOH abuse Added salt: sometimes Salt substitute usage: no Protein/calorie supplements: On liquacel at HD Was taking Orgain protein powder Renal/other vitamins: cholecalciferol (Vitamin D3) - FORKLIFT TRUCK OPERATOR ordered 2000 IU daily - said he is taking MULTIVITAMIN ORAL- gave renal vitamin info to change to Herbal/OTC supplements: None CKD/MBD medications: cholecalciferol (Vitamin D3) - 2000 IU daily sevelamer hydrochloride - 800 mg- 2 at every meal 2 tums at HD Other Medications Relevant to Nutrition: atorvastatin - 40 mg Levemir FlexPen insulin pen - 100 unit/mL (3 mL) Nutrition Goal: Patient will have an Albumin greater than or equal to 4.0 and will be well nourished Prescribed Weight:86.5 Kg Post-Dialytic Weight:86.1 12/01/2023 10:48 12/03/2023 11:19 12/06/2023 10:46 12/08/2023 11:02 12/10/2023 10:43 - ( Kg ) 86.2 85.4 86.5 85.8 86.1 Lab Results Component Value Date LABALBU 2.9 (L) 11/29/2023 BUNPRE 51 (H) 12/03/2023 URR: 68.627 (Calculated from:; BUN Pre-Dialysis: 51 mg/dL at 12/03/2023 11:25; BUN Post-Dialysis: 16 mg/dL at 12/03/2023 11:25) Kt/V: 1.37 (Calculated from:; BUN Pre-Dialysis: 51 mg/dL at 12/03/2023 11:25; BUN Post-Dialysis: 16 mg/dL at 12/03/2023 11:25; Pre-Treatment Weight (kg): 88.2 at 12/03/2023 6:26; Post-Treatment Weight (kg): 85.4 at 12/03/2023 11:19; Duration of Treatment (minutes): 248 minutes at 12/03/2023 10:54) PCR: 0.92 (Calculated from:; BUN Pre-Dialysis: 51 mg/dL at 12/03/2023 11:25; BUN Post-Dialysis: 16 mg/dL at 12/03/2023 11:25; Pre-Treatment Weight (kg): 88.2 at 12/03/2023 6:26; Post-Treatment Weight (kg):85.4 at 12/03/2023 11:19; Duration of Treatment (minutes): 248 minutes at 12/03/2023 10:54; Age: 57 years) Barriers to obtaining adequate nutrition: Financial Assessment: Xander is eating well - we discussed eating adequate protein and balanced meals for wound healing and DM management. Will cont liquacel and encouraged use of protein powder. Current BMI 28 Education: Verbal Plan: Encouraged low Na HBV Protein sources daily Continue Liquacel at HD Fluid Removal & Volume Status Goal: UFR < 10 mL/Kg/hr UFR: 12/01/2023 10:48 12/03/2023 11:19 12/06/2023 10:46 12/08/2023 11:02 12/10/2023 10:43 - mL/Kg/hr 12.71 ml:kg:hr 7.93 ml:kg:hr 11.51 ml:kg:hr 2.58 ml:kg:hr 6.05 ml:kg:hr Assessment: High fluid gains Education: Verbal Plan: Reinforced FR especially on long stretches Discussed trying thirst quencher techniques Encouraged to avoid salt Electrolytes Goal: Dialysis patients will have a Potassium level between 4.0 - 5.5 Lab Results Component Value Date K 5.9 (H) 11/29/2023 NA 131 (L) 11/29/2023 CO2 19 (L) 11/29/2023 Assessment: Potassium: High Education: Verbal Plan: Discussed high k foods to limit with pt and Mineral Bone Disease Goal: Dialysis patients will have: Corrected and Non Corrected Calcium level between 8.5 - 10.2 Phosphorus level between 3.5 - 5.5 Magnesium level between 1.7 - 2.8 Parathyroid Hormone level between 175 - 800 Lab Results Component Value Date CALCCA 9.3 11/29/2023 CALCIUM 8.4 (L) 11/29/2023 PHOS 7.4 (H) 11/29/2023 PLT 327 12/08/2023 PTH 707 (H) 10/27/2023 MG 2.1 11/29/2023 ALKPHOS 106 11/29/2023 Assessment: Calcium: Within normal limits Calcium (calc): Low Phosphorus: High Magnesium: Within normal limits iPTH: Within normal limits Education: Verbal Plan: Discussed high phos foods to limit Encouraged compliance with renvela Encouaged to take tums with snacks - cont tums HD Vitamin Status Goal: Dialysis patients will have: Vitamin D level : 30 - 50 Vitamin B-12 level : 211 - 911 pg/mL Folate level : >5.4 ng/mL Lab Results Component Value Date VITD 21 (L) 10/27/2023 [id number] 607 10/27/2023 FOLATE >24.0 10/27/2023 HGB 9.4 (L) 12/08/2023 MCV 93 12/08/2023 Assessment: 25 OH Vitamin D: Low Vitamin B12: Within normal limits Folate: Within normal limits Plan: On D3 supplement - change to renal vitamin Diabetes Lab Results Component Value Date HGBA1C 11.6 (H) 11/07/2023 Comments: pt is on insulin - encouraged to check bld sugars Nutrition Prescription/ Recommendation Calories: BMR 1714 x 1.2= 2055 Protein: 100 g daily Sodium: <2400 mg Potassium: 3000 mg daily Phosphorous: 1300 mg Fluid: 1.5 L daily Education / Understanding Education/materials provided: Nutrition Lab Report Assessment of Understanding: needs reinforcement Additional comments: pt is INGE [address] RD, CD * Dialysis Plan of Care Note - Skye Gomez FORKLIFT TRUCK OPERATOR - 12/22/2023 1121 EST Dialysis Plan of Care Provider's Assessment Began Dialysis on: 02/14/2019 ESRD secondary to: diabetic nephropathy Care Conference Date: 12/14/23 Patient Status: ESRD Past Renal History/ Interval Dialysis History Gerson began in-center dialysis in January 2019 at an outside center ([facility]) and recently transferred to [facility]. His ESRD is secondary to diabetic nephropathy. No other modalities of renal replacement therapy have been tried, pt is not interested in home dialysis and he has been re-referred to transplant. We continue to support and educate, he is stable on dialysis, hestruggles with fluid and dietary compliance. He is currently and inpatient for an infected left diabetic heel ulcer. 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 associated with type 2diabetes mellitus ([facility]) ESRD (end stage renal disease) ([facility]) Essential (primary) hypertension Hearing loss Herniation of lumbar intervertebral disc with radiculopathy Hyperlipidemia Proteinuria Right sided numbness Secondary hyperparathyroidism ([facility]) TIA (transient ischemic attack) Type II or unspecified type diabetes mellitus with neurological manifestations, uncontrolled(250.62) Encounter for immunization Hypoalbuminemia Anemia of chronic renal failure Abnormal albumin Cellulitis and abscess of foot, except toes Encounter for therapeutic drug monitoring Diabetic foot infection ([facility]) COVID Type 2 diabetes mellitus with hypoglycemia without coma, with long-term current use of insulin ([facility]) Physical Examination: NAD, breathing unlabored, cardiac deferred, trace edema Dialysis Prescription: Hemodialysis Therapy Plan In-Center Hemodialysis [...] 1 Dialysis - UF Profile: None Dialysis Location: [facility] Dialysis Primary Verify Rep: Carlota Jin MD/ Skye Gomez APRN Assessment and Plan Appropriate for Home Dialysis: Patient declined Appropriate for Kidney Transplantation: No smoker Resuscitation Status Reviewed: Yes I have reviewed this document and discussed it in detail with the Interdisciplinary Care Team. I agree with the content except where I have provided corrections or amendments. * Dialysis Plan of Care Note - Alexa Estrada LICSW - 12/22/2023 1121 EST Dialysis Plan of Care Initiation Note Patient Condition: Stable Date: 12/22/2023 POC Type: Annual POC Reason: Stable and Annual Initial set up by: NIKKIE Avery * Dialysis Plan of Care Note - Marcela Cox RN - 12/22/2023 1121 EST Images from the original note were not included. Dialysis Plan of Care Nurse Assessment Primary Diagnosis: Type 2 diabetes mellitus with diabetic chronic kidney disease ([facility]) Patient knowledge related to kidney failure: Poor, Needs reinforcement Patient initiated renal replacement therapy within the last 12 months: No Modality Options Patient received information regarding modality options: Yes Patient understands modality/treatment options: Yes Patient is interested in pursuing home dialysis: No Patient is a home dialysis candidate: Not interested at this time Patient treatment choice: Hemodialysis, Incenter Transplantation: Patient received information regarding transplantation: Yes Patient referred to transplant program: Yes Transplant workup in progress: Was declined by [facility] as he is current smoker On active transplant list: No 12/16/2022 12:29 10/01/2023 12:02 Transplant Status Referral Status Declines Requests Meets Criteria at Center? No N/A Info Sent? No Yes Workup in Progress? No N/A Transplant Candidate? No N/A On Active Transplant List? No No Listing On-Hold? No No Transplant Center [facility] Comments Patient does not meet transplant criteria due to daily smoking cigarettes pt referred to transplant @ [facility] Home Medications: Medications reviewed with patient and list updated: Yes Identified issues with home medications: No Med Orders Placed This Visit and Additions to the Medication List Medications heparin injection 9,000 Units epoetin ken (EPOGEN) 20,000 unit/2 mL injection 1,500 Units Order Specific Question: Indication for erythropoetin stimulating agent (GEORGE): Answer: End Stage Renal Disease (ESRD) on dialysis LiquaCel liquid protein liquid 30 mL calcium carbonate (TUMS) tablet 500 mg (200 mg elemental calcium) 2 Tablet Current Outpatient Medications on File Prior to Visit Medication Sig Dispense Refill amLODIPine (NORVASC) 10 mg tablet Take 1 Tablet by mouth daily. atorvastatin (LIPITOR) 40 mg tablet Take 1 Tablet by mouth daily. calcium carbonate (TUMS) 200 mg calcium (500 mg) tablet,chewable Take 1 Tablet by mouth 3 times daily with meals. carvediloL (COREG) 12.5 mg tablet Take 1 Tablet by mouth 2 times daily. cholecalciferol, Vitamin D3, 50 mcg (2,000 unit) tablet Take 1 Tablet by mouth daily for 28 days. 28 Tablet 0 DULoxetine (CYMBALTA) 20 mg delayed release [...] Patch onto the skin daily. 30 Each 0 nortriptyline (PAMELOR) 25 mg capsule Take 1 Capsule by mouth. olmesartan (BENICAR) 5 mg tablet TAKE ONE TABLET BY MOUTH EVERY DAY STOP HCTZ pregabalin (LYRICA) 150 mg capsule TAKE ONE CAPSULE BY MOUTH TWICE A DAY, MAXIMUM DAILY DOSE = 2 CAPSULES sevelamer carbonate (RENVELA) 800 mg tablet Take 2 Tablets by mouth 3 times daily with meals for 28days. 168 Tablet 0 sildenafil citrate (VIAGRA) 100 mg tablet Take 1 Tablet by mouth. No current facility-administered medications on file prior to visit. Review of Systems: GENERAL Fever: No Chills: No Weakness/Fatigue: No Recent Weight Loss/Gain: No Blurred Vision: No Decrease in Vision: No Corrective Lenses: No Loss of Hearing: Yes. Wears Hearing Aid? No Normal Speech: Yes: WNL CARDIOVASCULAR: Heart Rate: Regular Chest Pain: No Palpitations: No Pacemaker Present: No Defibrillator Present: No RESPIRATORY: Lung Sounds: Clear Shortness of Breath: No Persistent Cough: No Hemoptysis: No Oxygen Use: No Tobacco (incl. Smokeless) Use: Current reports less than 1PPD GI/: Nausea/Vomiting: No Diarrhea: No Constipation: No Incontinent: No Abdominal Distention: No Abdominal Pain: No Heart Burn/Reflux: No Appetite: Good Menstrual Period Present: N/A Enlarged Prostate: No Urine Output: Yes: reports daily u/o Alcohol Use: No pt declines PHYSICAL ACTIVITY / AMBULATION STATUS Physical Limitations Present: Yes: very unsteady, at baseline uses walking stick to ambulate, currently using w/c d/t cellulitis of LLE Ambulation Status Ambulates with assistive device - walking stick Activities of Daily Living: Moderate Limitations/Able to perform all or most ADLs - assistance fromwife Recent Change in Activity Level: Yes: increased assistance from after recent infection to LLE Receives Assistance for ADLs, Physical and/or Social Activities: Yes: from Referral needed? No Fall Assessment: 3-Dialysis patient uses multiple attempts, but successful in rising - uses walkingstick and or w/c for assistance MENTAL/ NEUROLOGICAL: Alert and Oriented: Yes Memory Loss: No Confusion: No Depression: No Insomnia: No Frequent Headaches: No Numbness in Extremities: No Weakness in Extremities: Yes: uses w/c or walking stick for assistance Tremor Present: No Substance use: Reports daily marijuana usage PAIN ASSESSMENT Pain Scale: 8 If present, location / relieved by: Pain in LLE, r/t infection. Uses tylenol PRN Lab Results Component Value Date HBSAG Negative 10/27/2023 HEPBHBQ 138.0 10/27/2023 HEPBSAB Positive 10/27/2023 HEPBCOREAB Negative 10/27/2023 XHCSCR2 Negative 10/27/2023 Immunization History Administered Date(s) Administered Hepatitis B [...] IM 10/30/1996 Tdap Vaccine =>8YO IM 05/31/2016 Patient Received Hepatitis B Vaccine Series: Is Patient Hepatitis B Susceptible? No Patient Received Influenza Vaccine: Yes: see above Patient Received Pneumonia Vaccine: Yes: see above Patient Screened for TB: No Dialysis Adequacy: Lab Results Component Value Date PUR 68.6 12/03/2023 1.37 (Calculated from:; BUN Pre-Dialysis: 51 mg/dL at 12/03/2023 11:25; BUN Post- Dialysis: 16 mg/dL at 12/03/2023 11:25; Pre-Treatment Weight (kg): 88.2 at 12/03/2023 6:26; Post-Treatment Weight (kg): 85.4at 12/03/2023 11:19; Duration of Treatment (minutes): 248 minutes at 12/03/2023 10:54) Hemodialysis Therapy Plan In-Center Hemodialysis 3 times [...] 15g 1 Dialysis - UF Profile: None Patient meets Kt/V goal: Yes Patient misses/shortens prescribed dialysis treatment: No: does not miss txs Fluid Management: Prescribed Weight: 86.5 11/26/2023 10:43 11/29/2023 10:51 12/01/2023 10:48 12/03/2023 11:19 12/06/2023 10:46 - ( Kg ) 86.2 88.5 86.2 85.4 86.5 11/26/2023 10:43 11/29/2023 10:51 12/01/2023 10:48 12/03/2023 11:19 12/06/2023 10:46 - mL/Kg/hr 5.8 ml:kg:hr 11.82 ml:kg:hr 12.71 ml:kg:hr 7.93 ml:kg:hr 11.51 ml:kg:hr 12/06/2023 6:29 12/06/2023 6:32 12/06/2023 10:46 12/08/2023 6:23 12/08/2023 6:27 InterDialytic +/- Gain/Loss 5.1 5.1 0.2 0.2 Wt (pre) 90.5 90.5 86.7 86.7 Wt (post) 86.5 Treatment UFR (ml:kg:hr) 11.51 ml:kg:hr BP (post) 183/91 183/91 182/95 182/95 Pulse(post) 80 80 76 76 Resp (/min) 16 16 11/19/2023 10:44 11/22/2023 10:48 11/29/2023 10:51 12/01/2023 10:48 12/03/2023 11:19 HN DIALYSIS CRITLINE FINAL PROFILE Crit-Line Final Profile Profile A Profile A Profile A Profile A Profile A Patient Achieves EDW (+1/-1kg) Majority of Treatments: Yes Blood Pressure: 12/06/2023 6:29 12/06/2023 6:32 12/06/2023 10:46 12/08/2023 6:23 12/08/2023 6:27 ... Pre-BP (sitting) 183/91 183/91 182/95 182/95 Post-BP (sitting) 163/86 Intra-dialytic Hypotension (> 3 treatments/month): No Intra-dialytic Hypertension (> 3 treatments/month): Yes: see flowsheet Intra-dialytic Cramping (> 3 treatments/month): No Anemia Management: Lab Results Component Value Date WBC 9.11 12/01/2023 RBC 2.95 (L) 12/01/2023 HGB 9.1 (L) 12/01/2023 HCT 27.5 (L) 12/01/2023 MCV 93 12/01/2023 MCH 30.8 12/01/2023 MCHC 33.1 12/01/2023 PLT 323 12/01/2023 MPV 11.7 12/01/2023 RDWCV 12.9 12/01/2023 Lab Results Component Value Date IRON 58 11/29/2023 TIBC 205 (L) 11/29/2023 FERRITIN 694 (H) 11/29/2023 Current GEORGE dose: HEMODIALYSIS [facility] epoetin ken (EPOGEN) 20,000 unit/2 mL injection 1,500 Units 1,500 Units, intravenous, 3 times a week, ONCE IN DIALYSIS GEORGE Dose Adjustment: Increase in dose Current Iron Series: No Maintenance Iron Dose: No Iron Dose Adjustment: Held Oral Iron: No Patient is Free from Infection/Inflammation: No: cellulitis of LLE Dialysis Access: Hemodialysis Arteriovenous Access 02/13/19 (Active) AV Fistula Present 12/08/23 0649 Site Assessment Clean;Dry;Intact;Bruit heard;Thrill felt 12/08/23 0649 Current State Active 12/08/23 0649 Status Accessed 12/08/23 0649 Is Maturing N 12/08/23 0649 Local Anesthetic None 12/08/23 0649 Site Prep Chlorhexidine 12/08/23 0649 Venous Needle Size 15 G 12/08/23 0649 Arterial/Generic Needle Size 15 G 12/08/23 0649 Accessed by: Cecile Cortes 12/08/23 0649 Access Attempts 2 12/08/23 0649 Dressing Status/Care Clean/Dry/Intact 12/06/23 0652 Dressing Intervention Chloraprep 11/08/23 1245 Patient has AVF/AVG as primary access: Yes Patient has Catheter as primary access >90 days: No Access is free of infection: Yes Prescribed BFR is achieved: Yes Arterial and venous pressures are within facility limits: Yes Access Issues: No Access Referral Needed/Made: No documented in this encounter Plan of Treatment Upcoming Encounters Date Type Department Care Team (Late st Contact Info) Description 12/06/2024 6:45 EST Treatment [facility] [address] [place], [place] [id number] Carlota Jin MD [address] [place] [address] [address] [place] [phone] 12/08/2024 6:45 EST Treatment [facility] [address] [place] [id number] Carlota Jin MD [address] [place] [address] [address] [place] [phone] 12/11/2024 6:45 EST Treatment [facility] [address] [place] [phone] Carlota Jin MD [facility], [facility] [address] [place] [phone] 12/13/2024 6:45 EST Treatment [facility] [place] [address] [place], [place] [id number] Carlota Jin MD 1 [facility], [facility] [address] [place] [phone] 12/15/2024 6:45 EST Treatment [facility] [place] [address] [place], [place] [id number] Carlota Jin MD 1 [facility], [facility] [address] [place] [phone] 12/18/2024 6:45 EST Treatment [facility] [place] [address] [place], [place] [phone] Carlota Jin MD 1 [facility], [facility] [address] [place] [phone] 12/20/2024 6:45 EST Treatment [facility] [address] [place], [place] [id number] Carlota Jin MD 1 [facility], [facility] [address] [place] [phone] 12/22/2024 6:45 EST Treatment [facility] [place] [address] [place], [place] [id number] Carlota Jin MD 1 [facility], [facility] [address] [place] [phone] 12/25/2024 6:45 EST Treatment [facility] [place] [address] [place], [place] [id number] Carlota Jin MD 1 [facility], [facility] [address] [place] [phone] 12/27/2024 6:45 EST Treatment [facility] [place] [address] [place], [place] [phone] Carlota Jin MD 1 [facility], [facility] [address] [place] [phone] 12/29/2024 6:45 EST Treatment [facility] [place] [address] [place] [address] Carlota Jin MD 1 [facility], [address] [phone] 01/01/2025 6:45 EDT Treatment [facility] [place] [address] [place], [place] [id number] Carlota Jin MD 1 [facility], [facility] [address] [place] [phone] 01/03/2025 6:45 EDT Treatment [facility] [place] [address] [place], [place] [id number] Carlota Jin MD 1 [facility], [facility] [address] [place] [phone] 01/05/2025 6:45 EDT Treatment [facility] [place] [address] [place] [address] Carlota Jin MD 1 [facility], [facility] [address] [place] [phone] 01/08/2025 6:45 EDT Treatment [facility] [place] [address] [place] [address] Carlota Jin MD 1 [facility], [facility] [address] [place] [phone] 01/10/2025 6:45 EDT Treatment [facility] [place] [address] [place] [address] Carlota Jin MD 1 [facility], [address] [phone] 01/12/2025 6:45 EDT Treatment [facility] [place] [address] [place] [address] Carlota Jin MD 1 [facility], [address] [phone] 01/15/2025 6:45 EDT Treatment [facility] [place] [address] [place] [address] Carlota Jin MD 1 [facility], [facility] [address] [place] [phone] 01/17/2025 6:45 EDT Treatment [facility] [place] [address] [place], [place] [id number] Carlota Jin MD 1 [facility], [facility] [address] [place] [phone] 01/19/2025 6:45 EDT Treatment [facility] [place] [address] [place], [place] [address] Carlota Jin MD 1 [facility], [facility] 2 [place] [phone] 01/22/2025 6:45 EDT Treatment [facility] [place] [address] [place], [place] [phone] Carlota Jin MD 1 [facility], [facility] [address] [place] [phone] 01/24/2025 6:45 EDT Treatment [facility] [place] [address] [place], [place] [address] Carlota Jin MD 1 [facility], [facility] [address] [place] [phone] 01/26/2025 6:45 EDT Treatment [facility] [place] [address] [place], [place] [address] Carlota Jin MD 1 [facility], [facility] [address] [place] [phone] 01/29/2025 6:45 EDT Treatment [facility] [place] [address] [place], [place] [phone] Carlota Jin MD 1 [facility], [facility] [address] [place] [phone] 01/31/2025 6:45 EDT Treatment [facility] [place] [address] [place], [place] [address] Carolta Jin MD 1 [facility], [address] [phone] 02/02/2025 6:45 EDT Treatment [facility] [place] [address] [place], [place] [id number] Carlota Jin MD 1 [facility], [address] [phone] 02/05/2025 6:45 EDT Treatment [facility] [place] [address] [place], [place] [phone] Carlota Jin MD 1 [facility], [address] [phone] 02/07/2025 6:45 EDT Treatment [facility] [place] [address] [place], [place] [phone] Carlota Jin MD [address] [phone] 02/09/2025 6:45 EDT Treatment [facility] [place] [address] [place], [place] [phone] Carlota Jin MD [address] [phone] 02/12/2025 6:45 EDT Treatment [facility] [place] [address] [place], [place] [phone] Carlota Jin MD 1 [facility], [address] [phone] 02/14/2025 6:45 EDT Treatment [facility] [place] [address] [place], [place] [phone] Carlota Jin MD [address] [phone] 02/16/2025 6:45 EDT Treatment [facility] [place] [address] [place], [place] [id number] Carlota Jin MD [address] [place] [address], [address] [phone] 02/19/2025 6:45 EDT Treatment [facility] [place] [address] [place], [place] [phone] Carlota Jin MD [address] [place] [phone] 02/21/2025 6:45 EDT Treatment [facility] [place] [address] [place], [place] [phone] Carlota Jin MD [address] [place] [phone] documented as of this encounter Visit Diagnoses * Dialysis POC IDT Note - Marcela Cox RN - 12/22/2023 1121 EST Images from the original note were not included. Dialysis Interdisciplinary Team Final PLAN OF CARE Note Meeting Date: 12/15/2023 Patient/Family Invited to POC Meeting: Yes Patient Present: Yes Based upon the findings of these assessments, the patient is considered to be: Stable Monthly Lab Results: Lab Results Component Value Date LABALBU 2.9 (L) 11/29/2023 CALCIUM 8.4 (L) 11/29/2023 CALCCA 9.3 11/29/2023 PHOS 7.4 (H) 11/29/2023 PTH 707 (H) 10/27/2023 MG 2.1 11/29/2023 K 5.9 (H) 11/29/2023 HGB 9.1 (L) 12/01/2023 LABIRON 28 11/29/2023 FERRITIN 694 (H) 11/29/2023 WBC 9.11 12/01/2023 Immunization History Administered Date(s) Administered Hepatitis B [...] IM 10/30/1996 Tdap Vaccine =>7YO IM 05/31/2016 Current Outpatient Medications Medication amLODIPine (NORVASC) 10 mg tablet atorvastatin (LIPITOR) 40 mg tablet calcium carbonate (TUMS) 200 mg calcium (500 mg) tablet,chewable carvediloL (COREG) 12.5 mg tablet cholecalciferol, Vitamin D3, 50 mcg (2,000 unit) tablet DULoxetine (CYMBALTA) 20 mg delayed release capsule famotidine (PEPCID) 40 mg tablet FLOVENT HFA 110 mcg/actuation inhaler LEVEMIR FLEXPEN 100 unit/mL (3 mL) injectable pen liraglutide (VICTOZA 2-JULY) 0.6 mg/0.1 mL (18 mg/3 mL) injectable pen MULTIVITAMIN ORAL nicotine (NICODERM CQ) 21 mg/24 hr patch nortriptyline (PAMELOR) 25 mg capsule olmesartan (BENICAR) 5 mg tablet pregabalin (LYRICA) 150 mg capsule sevelamer carbonate (RENVELA) 800 mg tablet sildenafil citrate (VIAGRA) 100 mg tablet Current Facility-Administered Medications Medication Route Frequency LiquaCel liquid protein liquid 30 mL oral ONCE IN DIALYSIS Transplant Info: 12/16/2022 12:29 10/01/2023 12:02 Transplant Status Referral Status Declines Requests Meets Criteria at Center? No N/A Info Sent? No Yes Workup in Progress? No N/A Transplant Candidate? No N/A On Active Transplant List? No No Listing On-Hold? No No Transplant Center [facility] Comments Patient does not meet transplant criteria due to daily smoking cigarettes pt referred to transplant @ [facility] Dialysis Adequacy: Goal: Hemodialysis patients will have a Kt/V goal of > 1.2 Kt/V: 1.37 (Calculated from:; BUN Pre-Dialysis: 51 mg/dL at 12/03/2023 11:25; BUN Post-Dialysis: 16 mg/dL at 12/03/2023 11:25; Pre-Treatment Weight (kg): 88.2 at 12/03/2023 6:26; Post-Treatment Weight (kg): 85.4 at 12/03/2023 11:19; Duration of Treatment (minutes): 248 minutes at 12/03/2023 10:54) Plan/Time Line: at goal Volume Status Goal: Patient will remain free from intradialytic symptoms and maintain appropriate EDW Pre and post BP (sitting) 12/03/2023 11:19 12/06/2023 6:29 12/06/2023 6:32 12/06/2023 10:46 12/08/2023 6:23 12/08/2023 6:27 12/08/2023 11:02 ... Pre-BP (sitting) 183/91 183/91 182/95 182/95 Post-BP (sitting) 147/82 163/86 190/89 12/01/2023 6:31 12/03/2023 6:20 12/03/2023 6:26 12/06/2023 6:29 12/06/2023 6:32 12/08/2023 6:23 12/08/2023 6:27 Interdialytic Change Interdialytic fluid gain/loss (kg) 0.06 kg 0.057 kg 0.057 kg 0.145 kg 0.145 kg 0.006 kg 0.006 kg Plan/Timeline: large gains, ongoing education and support Anemia Management Goal: Patient will maintain a Hgb > 9.0mg/dL - < 11.0mg/dL. Lab Results Component Value Date HGB 9.1 (L) 12/01/2023 FERRITIN 694 (H) 11/29/2023 PLT 323 12/01/2023 [id number] 607 10/27/2023 FOLATE >24.0 10/27/2023 HEMODIALYSIS [facility] epoetin ken (EPOGEN) 20,000 unit/2 mL injection 1,500 Units 1,500 Units, intravenous, 3 times a week, ONCE IN DIALYSIS This patient does not have an active medication from one of the medication groupers. This patient does not have an active medication from one of the medication groupers. Plan/Time Line: Epo per protocol Access Management Goal: Patient has the most appropriate and optimal vascular access. Hemodialysis Arteriovenous Access 02/13/19 (Active) 02/13/19 Earliest Known Present: Hand Hygiene Completed: Orientation: Anterior;Left Access Type: Arteriovenous fistula Access Location: Upper arm Site Prep: Patient Tolerance: Usable Date: Earliest Known Removed: AV Fistula Present 12/08/23648 Site Assessment Clean;Dry;Intact;Bruit heard;Thrill felt 12/08/23 06 Current State Active 12/08/23648 Status Accessed 12/08/2349 Is Maturing N 12/08/23648 Local Anesthetic None 12/08/23648 Site Prep Chlorhexidine 12/08/23648 Venous Needle Size 15 G 12/08/23648 Arterial/Generic Needle Size 15 G 12/08/2349 Accessed by: Cecile Cortes 12/08/23648 Access Attempts 2 12/08/2349 Dressing Status/Care Clean/Dry/Intact 12/06/23 0652 Dressing Intervention Chloraprep 11/08/23 1245 Plan/Time Line: at goal Mineral and Renal Bone Disease Management Goal: Patient will have a phosphorous level > 3.5 - < 5.5 mg/dL. Goal: Patient will have an uncorrected calcium level > 8.4 - < 10.2 mg/dL. Goal: Patient will have a corrected calcium level < 10.2 mg/dL. Goal: Patient will have an intact PTH level > 150 - < 800 pg/mL. Lab Results Component Value Date PHOS 7.4 (H) 11/29/2023 CALCIUM 8.4 (L) 11/29/2023 CALCCA 9.3 11/29/2023 PTH 707 (H) 10/27/2023 ALKPHOS 106 11/29/2023 Plan/Time Line: Reinforced taking binders with all meals and snacks Revd high phos foods to limit Potassium Management Goal: Patient will have a potassium < 6.0 meq/dL. Lab Results Component Value Date K 5.9 (H) 11/29/2023 K 5.8 (H) 11/10/2023 K 5.2 (H) 11/09/2023 K 5.1 (H) 11/08/2023 12/08/2023 6:27 Last Dialysis Prescription released on: Selected bath: Potassium 2 mEq/L Calcium 2.5 mEq/L Plan/Time Line: Cont to review high k foods to limit Nutrition Management Goal: Patient will have an albumin level >= 4.0 mg/dL. Lab Results Component Value Date LABALBU 2.9 (L) 11/29/2023 LABALBU 3.1 (L) 10/27/2023 LABALBU 3.1 (L) 09/27/2023 LABALBU 3.2 (L) 08/30/2023 Plan/Time Line: Continue liquacel at HD Encouraged balanced meals with high protein intake Encouraged to use protein powder at home Treatment Modality/Transplantation Goal: Patient will be informed of treatment modality choices and receive preferred treatment if deemed a candidate. Plan/Time Line: ongoing Treatment Attendance Goal: Patient will be present at prescribed, scheduled treatments. Plan/Time Line: ongoing documented in this encounter Care Teams [employer] Relationship Specialty Start Date End Date Ken Greer MD [address] [place] [address] PCP - General 07/07/23 documented as of this encounter
--- OUTSIDE RECORDS SUMMARY | 2024-12-05 12:13 | XMS_ITS | Encounter Summary ---
Author Organization [facility] Address [address] [place] [address] Care Team Providers Care Mainframe Applications Developer Name Role Phone Ken Greer MD Primary Care Provider [phone] Encounter Details Date Type Department Care Team (Late st Contact Info) Description 12/17/2023 Documentation Visit [address] [place], [place] [id number] Melissa Crespo, VIDYA Social History Tobacco Use [...] EST Treatment [facility] - [place] [address] [place], [place] [phone] Carlota Jin MD 1 [facility], [facility] 2 [place] [phone] 12/08/2024 6:45 EST Treatment [facility] - [place] [address] [place], [place] [phone] Carlota Jin MD 1 [facility], [facility] 2 [place] [phone] 12/11/2024 6:45 EST Treatment [facility] - [place] [address] [place], [place] [phone] Carlota Jin MD 1 [facility], [facility] 2 [place] [phone] 12/13/2024 6:45 EST Treatment [facility] Dialysi [facility] [address] [place], [place] [phone] Carlota Jin MD 1 [facility], Level 2 [place] [phone] 12/15/2024 6:45 EST Treatment [facility] - [place] [address] [place], [place] [address] Carlota Jin MD 1 [facility], [facility] 2 [place] [phone] 12/18/2024 6:45 EST Treatment [facility] - [place] [address] [place], [place] [phone] Carlota Jin MD 1 [facility], [facility] 2 [place] [phone] 12/20/2024 6:45 EST Treatment [facility] - [place] [address] [place], [place] [phone] Carlota Jin MD 1 [facility], [facility] 2 [place] [phone] 12/22/2024 6:45 EST Treatment [facility] - [place] [address] [place] [address] Carlota Jin MD 1 [facility], [facility] 2 [place] [phone] 12/25/2024 6:45 EST Treatment [facility] - [place] [address] [place], [place] [phone] Carlota Jin MD 1 [facility], [facility] 2 [place] [phone] 12/27/2024 6:45 EST Treatment [facility] - [place] [address] [place], [place] [phone] Carlota Jin MD 1 [facility], [facility] 2 [place] [phone] 12/29/2024 6:45 EST Treatment [facility] - [place] [address] [place], [place] [phone] Carlota Jin MD 1 [facility], [facility] 2 [place] [phone] 01/01/2025 6:45 EDT Treatment [facility] - [place] [address] [place], [place] [phone] Carlota Jin MD 1 [facility], [facility] 2 [place] [phone] 01/03/2025 6:45 EDT Treatment [facility] - [place] [address] [place], [place] [phone] Carlota Jin MD [address] [place] [address], [facility] 2 [place] [phone] 01/05/2025 6:45 EDT Treatment [facility] - [place] [address] [place], [place] [phone] Carlota Jin MD 1 [facility], [facility] 2 [place] [phone] 01/08/2025 6:45 EDT Treatment [facility] - [place] [address] [place], [place] [phone] Carlota Jin MD 1 [facility], [facility] 2 [place] [phone] 01/10/2025 6:45 EDT Treatment [facility] - [place] [address] [place], [place] [phone] Carlota Jin MD 1 [facility], [facility] 2 [place] [phone] 01/12/2025 6:45 EDT Treatment [facility] - [place] [address] [place], [place] [phone] Carlota Jin MD 1 [facility], [facility] 2 [place] [phone] 01/15/2025 6:45 EDT Treatment [facility] - [place] [address] [place] [address] Carlota Jin MD 1 [facility], [facility] 2 [place] [phone] 01/17/2025 6:45 EDT Treatment [facility] - [place] [address] [place], [place] [phone] Carlota Jin MD 1 [facility], [facility] 2 [place] [phone] 01/19/2025 6:45 EDT Treatment [facility] - [place] [address] [place], [place] [phone] Carlota Jin MD 1 [facility], [facility] 2 [place] [phone] 01/22/2025 6:45 EDT Treatment [facility] - [place] [address] [place], [place] [phone] Carlota Jin MD 1 [facility], [facility] 2 [place] [phone] 01/24/2025 6:45 EDT Treatment [facility] - [place] [address] [place], [place] [phone] Carlota Jin MD 1 [facility], [facility] 2 [place] [phone] 01/26/2025 6:45 EDT Treatment [facility] - [place] [address] [place], [place] [phone] Carlota Jin MD 1 [facility], [facility] 2 [place] [phone] 01/29/2025 6:45 EDT Treatment [facility] - [place] [address] [place], [place] [phone] Carlota Jin MD 1 [facility], [facility] 2 [place] [phone] 01/31/2025 6:45 EDT Treatment [facility] - [place] [address] [place], [place] [phone] Carlota Jin MD 1 [facility], [facility] 2 [place] [phone] 02/02/2025 6:45 EDT Treatment [facility] - [place] [address] [place], [place] [address] Carlota Jin MD 1 [facility], [facility] 2 [place] [phone] 02/05/2025 6:45 EDT Treatment [facility] - [place] [address] [place] [address] [address] MD 1 [facility], [facility] 2 [place] [phone] 02/07/2025 6:45 EDT Treatment [facility] - [place] [address] [place], [place] [phone] Carlota Jin MD 1 [facility], [facility] 2 [place] [phone] 02/09/2025 6:45 EDT Treatment [facility] - [place] [address] [place], [place] [phone] Carlota Jin MD 1 [facility], [facility] 2 [place] [phone] 02/12/2025 6:45 EDT Treatment [facility]ys[facility] - [place] [address] [place], [place] [phone] Carlota Jin MD 1 [facility], [facility] 2 [place] [phone] 02/14/2025 6:45 EDT Treatment [facility] - [place] [address] [place], [place] [phone] Carlota Jin MD 1 [facility], [facility] 2 [place] [phone] 02/16/2025 6:45 EDT [facility] [address] [place], [place] [phone] Carlota Jin MD 1 [facility], [facility] 2 [place] [phone] 02/19/2025 6:45 EDT Treatment [facility] [address] [place], [place] [phone] Carlota Jin MD [address] [place] [address], [facility] 2 [place] [phone] 02/21/2025 6:45 EDT Treatment [facility] [address] [place], [place] [phone] Carlota Jin MD [address] [place] [address], [facility] 2 [place] [phone] documented as of this encounter Visit Diagnoses Not on filedocumented in this encounter Care Teams Mainframe Applications Developer Relationship Specialty Start Date End Date Ken Greer MD [facility] [place] [address] PCP - General 07/07/23 documented as of this encounter
--- OUTSIDE RECORDS SUMMARY | 2024-12-05 12:13 | XMS_ITS | Encounter Summary ---
Author Organization [facility] Address [address] [place] [address] Care Team Providers Care Facilities Engineering Manager Name Role Phone Ken Greer MD Primary Care Provider [phone] Encounter Details Date Type Department Care Team (Latest Contact Info) Description 12/06/2023 6:45 EST Treatment [facility] [address] [place], [place] [phone] Carlota Jin MD 1 [facility], Level 2 [place] [address] ESRD (end stage renal disease) ([facility]) (Primary Dx); Anemia of chronic renal failure, unspecified CKD stage; Hypoalbuminemia; Secondary hyperparathyroidism ([facility]) Social History Tobacco Use Types Packs/Day [...] - Temperature - - Respiratory Rate 16 12/06/2023 0629 EST Oxygen Saturation - - Inhaled Oxygen Concentration - - Weight 90.5 kg (199 lb 8.3 oz) 12/06/[address] Height - - Body Mass Index 28.63 11/07/2023 0500 EST documented in this encounter Functional Status [...] Flowsheet Note - Marcela Cox RN - 12/06/2023 1354 EST 12/06/23 1046 Post-Hemodialysis Assessment Total Blood Processed (L) 89.84 Liters On Line Clearance: spKt/V 1.65 spKt/V Dialyzer Clearance Lightly streaked Treatment UFR (ml:kg:hr) 11.51 ml:kg:hr Critline refill Not done Fluid Removed (L) 4 L Post-Dialysis Scale Weight 86.5 kg (190 lb 11.2 oz) Wheelchair Weight 0 kg (0 lb) Prosthesis Weight 0 kg (0 lb) Post-Treatment Weight (kg) 86.5 Treatment Weight Change (kg) 4 kg Day Target Weight (kg) 87 Post Sitting/Lying BP 163/86 Post Sitting/Lying pulse 70 Temp 36.5 ??C [...] Description 12/06/2024 6:45 EST Treatment [facility] Dialysi [facility] [address] [place], [place] [phone] Carlota Jin MD 1 [facility], [address] [phone] 12/08/2024 6:45 EST Treatment [facility] D[facility]ysi [facility] [address] [place], [place] [phone] Carlota Jin MD 1 [facility], [facility] 2 [place] [phone] 12/11/2024 6:45 EST Treatment [facility] Dialysi [facility] [address] [place], [place] [phone] Carlota Jin MD 1 [facility] 2 [place] [phone] 12/13/2024 6:45 EST Treatment [facility] Dialysi [facility] [address] [place], [place] [phone] Carlota Jin MD 1 [facility], Level 2 [place] [phone] 12/15/2024 6:45 EST Treatment [facility] D[facility]ysi - [place] [address] [place], [place] [address] Carlota Jin MD 1 [facility], [facility] 2 [place] [phone] 12/18/2024 6:45 EST Treatment [facility] - [place] [address] [place], [place] [phone] Carlota Jin MD 1 [facility], [facility] 2 [place] [phone] 12/20/2024 6:45 EST Treatment [facility] - [place] [address] [place], [place] [phone] Carlota Jin MD 1 [facility], [facility] 2 [place] [phone] 12/22/2024 6:45 EST Treatment [facility] [place] [address] [place] [address] Carlota Jin MD 1 [facility], [facility] 2 [place] [phone] 12/25/2024 6:45 EST Treatment [facility] [place] [address] [place], [place] [phone] Carlota Jin MD 1 [facility], [facility] 2 [place] [phone] 12/27/2024 6:45 EST Treatment [facility] - [place] [address] [place], [place] [phone] Carlota Jin MD 1 [facility], [facility] 2 [place] [phone] 12/29/2024 6:45 EST Treatment [facility] - [place] [address] [place], [place] [phone] Carlota Jin MD 1 [facility], [facility] 2 [place] [phone] 01/01/2025 6:45 EDT Treatment [facility] [place] [address] [place], [place] [phone] Carlota Jin MD 1 [facility], [facility] 2 [place] [phone] 01/03/2025 6:45 EDT Treatment [facility] [place] [address] [place], [place] [phone] Carlota Jin MD 1 [facility], [facility] 2 [place] [phone] 01/05/2025 6:45 EDT Treatment [facility] - [place] [address] [place], [place] [phone] Carlota Jin MD 1 [facility], [facility] 2 [place] [phone] 01/08/2025 6:45 EDT Treatment [facility] [place] [address] [place], [place] [phone] Carlota Jin MD 1 [facility], [facility] 2 [place] [phone] 01/10/2025 6:45 EDT Treatment [facility] - [place] [address] [place], [place] [address] Carlota Jin MD 1 [facility], [facility] 2 [place] [phone] 01/12/2025 6:45 EDT Treatment [facility] [place] [address] [place] [address] Carlota Jin MD 1 [facility], [facility] 2 [place] [phone] 01/15/2025 6:45 EDT Treatment [facility] - [place] [address] [place] [address] Carl[address] Jin MD 1 [facility], [facility] 2 [place] [phone] 01/17/2025 6:45 EDT Treatment [facility] [place] [address] [place] [address] Carlota Jin MD 1 [facility], [facility] 2 [place] [phone] 01/19/2025 6:45 EDT Treatment [facility] - [place] [address] [place], [place] [phone] Carlota Jin MD 1 [facility], [facility] 2 [place] [phone] 01/22/2025 6:45 EDT Treatment [facility] [place] [address] [place], [place] [phone] Carlota Jin MD 1 [facility], [facility] 2 [place] [phone] 01/24/2025 6:45 EDT Treatment [facility] [place] [address] [place], [place] [phone] Carlota Jin MD 1 [facility], [facility] 2 [place] [phone] 01/26/2025 6:45 EDT Treatment [facility] [place] [address] [place] [address] Carlota Jin MD 1 [facility], [address] [phone] 01/29/2025 6:45 EDT Treatment [facility] [place] [address] [place], [place] [phone] Carlota Jni MD 1 [facility], [facility] 2 [place] [phone] 01/31/2025 6:45 EDT Treatment [facility] [place] [address] [place], [place] [phone] Carlota Jin MD 1 [facility], [facility] 2 [place] [phone] 02/02/2025 6:45 EDT Treatment [facility] [place] [address] [place], [place] [address] Carlota Jin MD 1 [facility], [facility] 2 [place] [phone] 02/05/2025 6:45 EDT Treatment [facility] - [place] [address] [place] [address] Carlota Jin MD 1 [facility], [facility] 2 [place] [phone] 02/07/2025 6:45 EDT Treatment [facility] [place] [address] [place], [place] [address] [phone] [address] MD 1 [facility], [facility] 2 [place] [phone] 02/09/2025 6:45 EDT Treatment [facility] - [place] [address] [place] [address] Carlota Jin MD 1 [facility], [facility] 2 [place] [phone] 02/12/2025 6:45 EDT Treatment [facility] - [place] [address] [place] [address] Carlota Jin MD 1 [facility], [facility] 2 [place] [phone] 02/14/2025 6:45 EDT Treatment [facility] - [place] [address] [place], [place] [phone] Carlota Jin MD 1 [facility], [facility] 2 [place] [phone] 02/16/2025 6:45 EDT Treatment [facility] Dialysi [facility] [address] [place], [place] [phone] Carlota Jin MD [address] [phone] 02/19/2025 6:45 EDT Treatment [facility] D[facility]ysi [facility] [address] [place], [place] [phone] Carlota Jin MD [address] [place] [phone] 02/21/2025 6:45 EDT Treatment [facility] [address] [place], [place] [phone] Carlota Jin MD [address] [place] [phone] documented as of this encounter Procedures Procedure Name Priority Date/Time Associated Diagnosis Comments HEMODIALYSIS Routine 12/06/2023 6:29 EST ESRD (end stage renal disease) ([facility]) documented in this encounter Visit Diagnoses Diagnosis ESRD (end stage renal disease) ([facility])- Primary End stage renal disease Anemia of chronic renal failure, unspecified CKD stage Hypoalbuminemia Other disorders of plasma protein metabolism Secondary hyperparathyroidism ([facility]) Secondary hyperparathyroidism (of renal origin) documented in this encounter Administered Medications Inactive Administered Medications - up to 3 most recent administrations Medication Order MAR Action Action Date Dose Rate Site acetaminophen (TYLENOL) tablet 650 mg 650 mg, oral, EVERY 4 HOURS PRN, Starting on Wed12/06/23 at 0630, Until Wed12/06/23 at 1554, Pain, Routine, DialysisIndications:ESRD (end stage renal disease) ([facility]) Given 12/06/2023 6:51 EST 650 mg calcium carbonate (TUMS) tablet 500 mg (200 mg elemental calcium) 2 Tablet 2 Tablet, oral, ONCE IN DIALYSIS, 1 dose, On 12/06/23 at 0645, Routine, DialysisIndications:ESRD (end stage renal disease) ([facility]),Secondary hyperparathyroidism ([facility]) Given 12/06/2023 6:51 EST 2 Tablets epoetin ken (EPOGEN) 20,000 unit/2 mL injection 1,500 Units 1,500 Units, intravenous, ONCE IN DIALYSIS, 1 dose, On 12/06/23 at 0645, Routine, DialysisIndications:ESRD (end stage renal disease) ([facility]),Anemia of chronic renal failure, unspecified CKD stage Given 12/06/2023 6:51 EST 1,500 Units heparin injection 9,000 Units 9,000 Units, intravenous, ONCE IN DIALYSIS, 1 dose, On 12/06/23 at 0645, Routine, Dialysis, Now x1 bolus 4500 units to be given at the beginning of dialysis 1500 units/hour to be given over the course of dialysis (9000 units total). Stop 1 hour prior to end of treatment. To be administered per Policy [id number].Indications:ESRD (end stage renal disease) ([facility]) Given 12/06/2023 6:51 EST 9,000 Units documented in this encounter Orders Medications Ordered That Davide ht Not Have Been Administered Count Last Ordered Date First Ordered Date LiquaCel liquid protein liquid 30 mL 1 11/25 Dialysis Count Last Ordered Date First Orde red Date HEMODIALYSIS 1 12/06/2023 documented in this encounter Care Teams Facilities Engineering Manager Relationship Specialty Start Date End Date Ken Greer MD [address] [place] [address] PCP - General 07/07/23 documented as of this encounter
--- OUTSIDE RECORDS SUMMARY | 2024-12-05 12:13 | XMS_ITS | Encounter Summary ---
Author Organization [facility] Address [address] [place] [address] Care Team Providers Care Press Cutter Name Role Phone Ken Greer MD Primary Care Provider Encounter Details Date Type Department Care Team (Late st Contact Info) Description 12/06/2023 Documentation Visit [address] [place], [place] [address] Marcela Cox, VIDYA Social History Tobacco Use [...] of Assessment Author No 11/07/2023 1:52 Sarthak DeS antiago RN * Do you have difficulty dressing [...] De Santiago RN documented in this encounter Progress Notes * Marcela Cox RN - 12/06/2023 0957 EST 12/06/23 9:59 [facility] DIALYS[facility] MEDICATION RECONCILIATION Medication review of home medications (prescriptions, [id number], herbals, vitamin/mineral/dietary (nutritional) supplements, medical marijuana, and recreational) was completed through: Patient/caregiver given printed prescriptions/medication summary and reviewed for accuracy. Current Medications Current Outpatient Medications Medication amLODIPine (NORVASC) 10 mg tablet amoxicillin-clavulanate (AUGMENTIN) 500-125 mg per tablet atorvastatin (LIPITOR) 40 mg tablet calcium [...] (TYLENOL) tablet 650 mg oral Q4H PRN LiquaCel liquid protein liquid 30 mL oral ONCE IN DIALYSIS Marcela Cox, RN documented in this encounter Plan of Treatment Upcoming Encounters Date Type Department Care Team (Late st Contact Info) Description 12/06/2024 6:45 EST Treatment [facility] [address] [place], [place] [phone] Carlota Jin MD [address] [place] [address] [phone] 12/08/2024 6:45 EST Treatment [facility] [address] [place], [place] [phone] Carlota Jin MD [address] [place] [address] [phone] 12/11/2024 6:45 EST [facility] [address] [place], [place] [id number] Carlota Jin MD [address] [place] [address] [phone] 12/13/2024 6:45 EST Treatment [facility] [address] [place], [place] [id number] Carlota Jin MD [address] [place] [address] [phone] 12/15/2024 6:45 EST Treatment [facility] [address] [place], [place] [phone] Carlota Jin MD 1 [facility], [facility] [address] [place] [phone] 12/18/2024 6:45 EST Treatment [facility] [place] [address] [place], [place] [phone] Carlota Jin MD 1 [facility], [facility] [address] [place] [phone] 12/20/2024 6:45 EST Treatment [facility] [place] [address] [place], [place] [id number] Carlota Jin MD 1 [facility], [facility] [address] [place] [phone] 12/22/2024 6:45 EST Treatment [facility] [place] [address] [place] [address] Carlota Jin MD 1 [facility], [facility] [address] [place] [phone] 12/25/2024 6:45 EST Treatment [facility] [place] [address] [place], [place] [id number] Carlota Jin MD 1 [facility], [facility] [address] [place] [phone] 12/27/2024 6:45 EST Treatment [facility] [place] [address] [place], [place] [id number] Carlota Jin MD 1 [facility], [facility] [address] [place] [phone] 12/29/2024 6:45 EST Treatment [facility] [place] [address] [place], [place] [id number] Carlota Jin MD 1 [facility], [facility] [address] [place] [phone] 01/01/2025 6:45 EDT Treatment [facility] [place] [address] [place], [place] [phone] Carlota Jin MD 1 [facility], [facility] [address] [place] [phone] 01/03/2025 6:45 EDT Treatment [facility] [place] [address] [place] [address] Carlota Jin MD 1 [facility], [facility] [address] [place] [phone] 01/05/2025 6:45 EDT Treatment [facility] [place] [address] [place], [place] [phone] Carlota Jin MD 1 [facility], [facility] [address] [place] [phone] 01/08/2025 6:45 EDT Treatment [facility] [place] [address] [place], [place] [id number] Carlota Jin MD 1 [facility], [facility] [address] [place] [phone] 01/10/2025 6:45 EDT Treatment [facility] [place] [address] [place] [address] Carlota Jin MD 1 [facility], [facility] [address] [place] [phone] 01/12/2025 6:45 EDT Treatment [facility] [place] [address] [place], [place] [phone] Carlota Jin MD 1 [facility], [facility] [address] [place] [phone] 01/15/2025 6:45 EDT Treatment [facility] [place] [address] [place] [address] Carlota Jin MD 1 [facility], [address] [phone] 01/17/2025 6:45 EDT Treatment [facility] [place] [address] [place], [place] [id number] Carlota Jin MD 1 [facility], [address] [phone] 01/19/2025 6:45 EDT Treatment [facility] [place] [address] [place] [address] Carlota Jin MD 1 [facility], [facility] [address] [place] [phone] 01/22/2025 6:45 EDT Treatment [facility] [place] [address] [place], [place] [phone] Carlota Jin MD 1 [facility], [facility] [address] [place] [phone] 01/24/2025 6:45 EDT Treatment [facility] [place] [address] [place], [place] [address] Carlota Jin MD 1 [facility], [facility] [address] [place] [phone] 01/26/2025 6:45 EDT Treatment [facility] [place] [address] [place], [place] [id number] Carlota Jin MD [address] [place] [address], [facility] [address] [place] [phone] 01/29/2025 6:45 EDT Treatment [facility] - [place] [address] [place], [place] [address] Carlota Jin MD 1 [facility], [facility] [address] [place] [phone] 01/31/2025 6:45 EDT Treatment [facility] [place] [address] [place] [address] Carlota Jin MD [address] [place] [address], [facility] [address] [place] [phone] 02/02/2025 6:45 EDT Treatment [facility] [place] [address] [place], [place] [phone] Carlota Jin MD [address] [place] [address], [facility] [address] [place] [phone] 02/05/2025 6:45 EDT Treatment [facility] [place] [address] [place], [place] [address] Carlota Jin MD 1 [facility], [address] [phone] 02/07/2025 6:45 EDT Treatment [facility] [place] [address] [place] [address] Carlota Jin MD 1 [facility], [address] [phone] 02/09/2025 6:45 EDT Treatment [facility] [place] [address] [place], [place] [phone] Carlota Jin MD 1 [facility], [address] [phone] 02/12/2025 6:45 EDT Treatment [facility] [place] [address] [place], [place] [phone] Carlota Jin MD [address] [phone] 02/14/2025 6:45 EDT Treatment [facility] [place] [address] [place], [place] [id number] Carlota Jin MD [address] [phone] 02/16/2025 6:45 EDT Treatment [facility] [place] [address] [place], [place] [id number] Carlota Jin MD 1 [facility], [facility] [address] [place] [phone] 02/19/2025 6:45 EDT Treatment [facility] [place] [address] [place], [place] [phone] Carlota Jin MD 1 [facility], [facility] [address] [place] [phone] 02/21/2025 6:45 EDT Treatment [facility] [place] [address] [place], [place] [phone] Carlota Jin MD 1 [facility], [facility] [address] [place] [phone] documented as of this encounter Visit Diagnoses Not on filedocumented in this encounter Historical Medications * This list may reflect changes made after this encounter. sildenafil citrate (VIAGRA) 100 mg tablet Take 1 Tablet by mouth as needed. 11/05/2023 02/28/2024 nortriptyline (PAMELOR) 25 mg capsule Take 1 Capsule by mouth. 11/05/2023 12/24/2023 liraglutide (VICTOZA 2-JULY) 0.6 mg/0.1 mL (18 mg/3 mL) injectable pen Inject 1.8 mg into the skin. 11/05/2023 12/24/2023 DULoxetine (CYMBALTA) 20 mg delayed release capsule Take 1 Capsule by mouth 2 times daily. 12/03/2023 02/28/2024 added in this encounter Care Teams Press Cutter Relationship Specialty Start Date End Date Ken Greer MD [facility] [place] [address] PCP - General 07/07/23 documented as of this encounter
--- OUTSIDE RECORDS SUMMARY | 2024-12-05 12:13 | XMS_ITS | Encounter Summary ---
Author Organization [facility] Address [address] [place] [address] Care Team Providers Care Commercial Credit Analyst Name Role Phone Ken Greer MD Primary Care Provider [phone] Encounter Details Date Type Department Care Team (Late st Contact Info) Description 12/14/2023 Documentation Visit [facility] [address] [place], [place] [phone] Skye Gomez, MUKESH 1 [facility], Level [address] [place] [phone] Social History Tobacco Use Types [...] [facility] [place] [address] [place], [place] [phone] Carlota Jin MD 1 [facility], [facility] 2 [place] [phone] 12/08/2024 6:45 EST Treatment [facility] [address] [place], [place] [address] Carlota Jin MD 1 [facility], [facility] [address] [place] [phone] 12/11/2024 6:45 EST Treatment [facility] [address] [place], [place] [phone] Carlota Jin MD 1 [facility], [facility] [address] [place] [phone] 12/13/2024 6:45 EST Treatment [facility] [place] [address] [place], [place] [phone] Carlota Jin MD 1 [facility], [facility] [address] [place] [phone] 12/15/2024 6:45 EST Treatment [facility] [place] [address] [place], [place] [phone] Carlota Jin MD [address] [place] [address], [facility] [address] [place] [phone] 12/18/2024 6:45 EST Treatment [facility] [place] [address] [place], [place] [phone] Carlota Jin MD [address] [place] [address], [facility] [address] [place] [phone] 12/20/2024 6:45 EST Treatment [facility] [place] [address] [place], [place] [phone] Carlota Jin MD 1 [facility], [facility] [address] [place] [phone] 12/22/2024 6:45 EST Treatment [facility] [place] [address] [place], [place] [phone] Carlota Jin MD [address] [place] [address], [facility] [address] [place] [phone] 12/25/2024 6:45 EST Treatment [facility] [place] [address] [place], [place] [phone] Carlota Jin MD 1 [facility], [facility] [address] [place] [phone] 12/27/2024 6:45 EST Treatment [facility] [place] [address] [place], [place] [address] Carlota Jin MD 1 [facility], [facility] [address] [place] [phone] 12/29/2024 6:45 EST Treatment [facility] [place] [address] [place], [place] [phone] Carlota Jin MD 1 [facility], [facility] [address] [place] [phone] 01/01/2025 6:45 EDT Treatment [facility] [place] [address] [place], [place] [phone] Carlota Jin MD 1 [facility], [facility] [address] [place] [phone] 01/03/2025 6:45 EDT Treatment [facility] [address] [place] [address] Carlota Jin MD 1 [facility], [facility] 2 [place] [phone] 01/05/2025 6:45 EDT Treatment [facility] [address] [place], [place] [address] Carlota Jin MD 1 [facility], [facility] [address] [place] [phone] 01/08/2025 6:45 EDT Treatment [facility] [place] [address] [place], [place] [phone] Carlota Jin MD 1 [facility], [facility] [address] [place] [phone] 01/10/2025 6:45 EDT Treatment [facility] [place] [address] [place], [place] [id number] Carlota Jin MD 1 [facility], [facility] [address] [place] [phone] 01/12/2025 6:45 EDT Treatment [facility] [place] [address] [place] [address] Carlota Jin MD [address] [place] [address], [facility] [address] [place] [phone] 01/15/2025 6:45 EDT Treatment [facility] [place] [address] [place], [place] [phone] Carlota Jin MD [address] [place] [address], [facility] [address] [place] [phone] 01/17/2025 6:45 EDT Treatment [facility] [place] [address] [place], [place] [phone] Carlota Jin MD 1 [facility], [facility] 2 [place] [phone] 01/19/2025 6:45 EDT Treatment [facility] [place] [address] [place], [place] [id number] Carlota Jin MD 1 [facility], [facility] 2 [place] [phone] 01/22/2025 6:45 EDT Treatment [facility] [place] [address] [place], [place] [address] Carlota Jin MD 1 [facility], [facility] 2 [place] [phone] 01/24/2025 6:45 EDT Treatment [facility] [place] [address] [place], [place] [id number] Carlota Jin MD 1 [facility], [facility] 2 [place] [phone] 01/26/2025 6:45 EDT Treatment [facility] [place] [address] [place], [place] [id number] Carlota Jin MD 1 [facility], [facility] 2 [place] [phone] 01/29/2025 6:45 EDT Treatment [facility] [place] [address] [place], [place] [id number] Carlota Jin MD 1 [facility], [facility] [address] [place] [phone] 01/31/2025 6:45 EDT Treatment [facility] [place] [address] [place], [place] [phone] Carlota Jin MD 1 [facility], [facility] 2 [place] [phone] 02/02/2025 6:45 EDT Treatment [facility] [place] [address] [place], [place] [id number] Carlota Jin MD 1 [facility], [facility] 2 [place] [phone] 02/05/2025 6:45 EDT Treatment [facility] [place] [address] [place], [place] [address] Carlota Jin MD 1 [facility], [facility] 2 [place] [phone] 02/07/2025 6:45 EDT Treatment [facility] [place] [address] [place], [place] [id number] Carlota Jin MD 1 [facility], [facility] 2 [place] [phone] 02/09/2025 6:45 EDT Treatment [facility] [place] [address] [place], [place] [address] Carlota Jin MD 1 [facility], [facility] 2 [place] [phone] 02/12/2025 6:45 EDT Treatment [facility] [place] [address] [place], [place] [phone] Carlota Jin MD 1 [facility], [facility] 2 [place] [phone] 02/14/2025 6:45 EDT Treatment [facility] [place] [address] [place], [place] [id number] Carlota Jin MD 1 [facility], [facility] [address] [place] [phone] 02/16/2025 6:45 EDT Treatment [facility] [place] [address] [place], [place] [id number] Carlota Jin MD 1 [facility], [address] [phone] 02/19/2025 6:45 EDT Treatment [facility] [address] [place], [place] [id number] Carlota Jin MD 1 [facility], [address] [phone] 02/21/2025 6:45 EDT [facility] [address] [place], [place] [phone] Carlota Jin MD 1 [facility], [address] [phone] documented as of this encounter Visit Diagnoses Not on filedocumented in this encounter Additional Health Concerns Infection Onset Date Last Indicated Resolved Time R/O COVID-19 12/20/2023 12/20/2023 12/20/2023 7:14 EST documented as of this encounter Care Teams Commercial Credit Analyst Relationship Specialty Start Date End Date Ken Greer MD [address] [place] [address] PCP - General 07/07/23 documented as of this encounter
--- OUTSIDE RECORDS SUMMARY | 2024-12-05 12:13 | XMS_ITS | Encounter Summary ---
Author Organization [facility] Address [address] [place] [address] Care Team Providers Care Information Developer Name Role Phone Ken Greer MD Primary Care Provider [phone] Encounter Details Date Type Department Care Team (Late st Contact Info) Description 12/10/2023 Documentation Visit [address] [place], [place] [id number] Melissa Crespo, VIDYA Social History Tobacco Use [...] [facility] [place] [address] [place], [place] [phone] Carlota Jin MD 1 [facility], [facility] 2 [place] [phone] 12/08/2024 6:45 EST Treatment [facility] [place] [address] [place], [place] [phone] Carlota Jin MD 1 [facility], [facility] 2 [place] [phone] 12/11/2024 6:45 EST Treatment [facility] [place] [address] [place], [place] [phone] Carlota Jin MD 1 [facility], [facility] 2 [place] [phone] 12/13/2024 6:45 EST Treatment [facility] [address] [place], [place] [phone] Carlota Jin MD 1 [facility], Level 2 [place] [phone] 12/15/2024 6:45 EST Treatment [facility] [place] [address] [place], [place] [address] Carlota Jin MD 1 [facility], [facility] 2 [place] [phone] 12/18/2024 6:45 EST Treatment [facility] [place] [address] [place], [place] [phone] Carlota Jin MD 1 [facility], [facility] 2 [place] [phone] 12/20/2024 6:45 EST Treatment [facility] [place] [address] [place], [place] [phone] Carlota Jin MD 1 [facility], [facility] 2 [place] [phone] 12/22/2024 6:45 EST Treatment [facility] [place] [address] [place] [address] Carlota Jin MD 1 [facility], [facility] 2 [place] [phone] 12/25/2024 6:45 EST Treatment [facility] [place] [address] [place], [place] [phone] Carlota Jin MD 1 [facility], [facility] 2 [place] [phone] 12/27/2024 6:45 EST Treatment [facility] [place] [address] [place], [place] [phone] Carlota Jin MD 1 [facility], [facility] 2 [place] [phone] 12/29/2024 6:45 EST Treatment [facility] [place] [address] [place], [place] [phone] Carlota Jin MD 1 [facility], [facility] 2 [place] [phone] 01/01/2025 6:45 EDT Treatment [facility] [place] [address] [place], [place] [phone] Carlota Jin MD 1 [facility], [facility] 2 [place] [phone] 01/03/2025 6:45 EDT Treatment [facility] [place] [address] [place], [place] [phone] Carlota Jin MD [address] [place] [address], [facility] 2 [place] [phone] 01/05/2025 6:45 EDT Treatment [facility] [place] [address] [place], [place] [phone] Carlota Jin MD 1 [facility], [facility] 2 [place] [phone] 01/08/2025 6:45 EDT Treatment [facility] [place] [address] [place], [place] [phone] Carlota Jin MD 1 [facility], [facility] 2 [place] [phone] 01/10/2025 6:45 EDT Treatment [facility] [place] [address] [place], [place] [phone] Carlota Jin MD 1 [facility], [facility] 2 [place] [phone] 01/12/2025 6:45 EDT Treatment [facility] [place] [address] [place], [place] [phone] Carlota Jin MD 1 [facility], [facility] 2 [place] [phone] 01/15/2025 6:45 EDT Treatment [facility] [place] [address] [place] [address] Carlota Jin MD 1 [facility], [facility] 2 [place] [phone] 01/17/2025 6:45 EDT Treatment [facility] [place] [address] [place], [place] [phone] Carlota Jin MD 1 [facility], [facility] 2 [place] [phone] 01/19/2025 6:45 EDT Treatment [facility] [place] [address] [place], [place] [id number] Carlota Jin MD 1 [facility], [facility] 2 [place] [phone] 01/22/2025 6:45 EDT Treatment [facility] [place] [address] [place], [place] [phone] Carlota Jin MD 1 [facility], [facility] 2 [place] [phone] 01/24/2025 6:45 EDT Treatment [facility] [place] [address] [place], [place] [phone] Carlota Jin MD 1 [facility], [facility] 2 [place] [phone] 01/26/2025 6:45 EDT Treatment [facility] [place] [address] [place], [place] [phone] Carlota Jin MD 1 [facility], [facility] 2 [place] [phone] 01/29/2025 6:45 EDT Treatment [facility] [place] [address] [place], [place] [phone] Carlota Jin MD 1 [facility], [facility] 2 [place] [phone] 01/31/2025 6:45 EDT Treatment [facility] [place] [address] [place], [place] [phone] Carlota Jin MD 1 [facility], [facility] 2 [place] [phone] 02/02/2025 6:45 EDT Treatment [facility] [place] [address] [place], [place] [address] Carlota Jin MD 1 [facility], [facility] 2 [place] [phone] 02/05/2025 6:45 EDT Treatment [facility] [place] [address] [place] [address] Carlota Jin MD 1 [facility], [facility] 2 [place] [phone] 02/07/2025 6:45 EDT Treatment [facility] [place] [address] [place], [place] [id number] Carlota Jin MD 1 [facility], [facility] 2 [place] [phone] 02/09/2025 6:45 EDT Treatment [facility] [place] [address] [place], [place] [phone] Carlota Jin MD 1 [facility], [facility] 2 [place] [phone] 02/12/2025 6:45 EDT Treatment [facility] [place] [address] [place], [place] [id number] Carlota Jin MD 1 [facility], [facility] 2 [place] [phone] 02/14/2025 6:45 EDT Treatment [facility] [place] [address] [place], [place] [id number] Carlota Jin MD 1 [facility], [facility] 2 [place] [phone] 02/16/2025 6:45 [facility] [address] [place], [place] [id number] Carlota Jin MD 1 [facility], [facility] 2 [place] [phone] 02/19/2025 6:45 EDT [facility] [address] [place], [place] [id number] Carlota Jin MD [address] [place] [address], [facility] 2 [place] [phone] 02/21/2025 6:45 EDT Treatment [facility] [address] [place], [place] [phone] Carlota Jin MD [address] [place] [address], [facility] 2 [place] [phone] documented as of this encounter Visit Diagnoses Not on filedocumented in this encounter Care Teams Information Developer Relationship Specialty Start Date End Date Ken Greer MD [facility] [place] [address] PCP - General 07/07/23 documented as of this encounter
--- OUTSIDE RECORDS SUMMARY | 2024-12-05 12:13 | XMS_ITS | Encounter Summary ---
Author Organization [facility] Address [address] [place] [address] Care Team Providers Care Scarfer Operator Name Role Phone Ken Greer MD Primary Care Provider [phone] Encounter Details Date Type Department Care Team (Latest Contact Info) Description 12/15/2023 6:45 EST Treatment [facility] [address] [place], [place] [phone] Carlota Jin MD 1 [facility], Level [address] [place] [phone] ESRD (end stage renal disease) ([facility]) (Primary Dx); Anemia of chronic renal failure, unspecified CKD stage; Hypoalbuminemia; Secondary hyperparathyroidism ([facility]) Social History Tobacco Use Types [...] - Temperature - - Respiratory Rate 16 12/15/2023 0623 EST Oxygen Saturation - - Inhaled Oxygen Concentration - - Weight 89.4 kg (197 lb 1.5 oz) 12/15/[address] Height - - Body Mass Index 28.28 11/07/2023 0500 EST documented in this encounter [...] Flowsheet Note - Marcela Cox RN - 12/15/2023 1403 EST 12/15/23 1055 Post-Hemodialysis Assessment Total Blood Processed (L) 90.37 Liters On Line Clearance: spKt/V 1.57 spKt/V Dialyzer Clearance Lightly streaked Treatment UFR (ml:kg:hr) 7.92 ml:kg:hr Final Critline Profile (%/hr) -0.86 Final Profile Profile A Critline refill Negative (26.4-26.2) Fluid Removed (L) 3.5 L Post-Dialysis Scale Weight 86.6 kg (190 lb 14.7 oz) Wheelchair Weight 0 kg (0 lb) Prosthesis Weight 0 kg (0 lb) Post-Treatment Weight (kg) 86.6 Treatment Weight Change (kg) 2.8 kg Day Target Weight (kg) 86.4 Post Sitting/Lying BP 149/81 Post Sitting/Lying pulse 72 Temp 35.8 ??C (96.4 ??F) Temp src [...] Dialysis Rounding - Skye Gomez NP - 12/15/2023 0645 EST Dialysis Provider's Routine Assessment Gerson Bruner was seen and examined as appropriate during Dialysis. Pertinent lab results were reviewed. Changes since last visit: None Changes to current prescriptions/orders: None Skye Gomez NP documented in this encounter Plan of Treatment Upcoming Encounters Date Type Department Care Team (Late st Contact Info) Description 12/06/2024 6:45 EST Treatment [facility] [address] [place], [place] [phone] Carlota Jin MD [address] [place] [address], [facility] 2 [place] [phone] 12/08/2024 6:45 EST Treatment [facility] [address] [place] [phone] Carlota Jin MD 1 [facility], [facility] 2 [place] [phone] 12/11/2024 6:45 EST Treatment [facility] [place] [address] [place], [place] [address] Carlota Jin MD 1 [facility], [facility] 2 [place] [phone] 12/13/2024 6:45 EST Treatment [facility] [place] [address] [place], [place] [phone] Carlota Jin MD 1 [facility], [facility] 2 [place] [phone] 12/15/2024 6:45 EST Treatment [facility] [place] [address] [place], [place] [phone] Carlota Jin MD 1 [facility], [facility] 2 [place] [phone] 12/18/2024 6:45 EST Treatment [facility] [place] [address] [place], [place] [phone] Carlota Jin MD 1 [facility], [address] [phone] 12/20/2024 6:45 EST Treatment [facility] [place] [address] [place], [place] [phone] Carlota Jin MD 1 [facility], [facility] 2 [place] [phone] 12/22/2024 6:45 EST Treatment [facility] [place] [address] [place], [place] [phone] Carlota Jin MD 1 [facility] 2 [place] [phone] 12/25/2024 6:45 EST Treatment [facility] [place] [address] [place], [place] [phone] Carlota Jin MD 1 [facility], [facility] 2 [place] [phone] 12/27/2024 6:45 EST Treatment [facility] [place] [address] [place], [place] [phone] Carlota Jin MD 1 [facility], [address] [phone] 12/29/2024 6:45 EST Treatment [facility] [place] [address] [place], [place] [phone] Carlota Jin MD 1 [facility], [address] [phone] 01/01/2025 6:45 EDT Treatment [facility] [address] [place] [address] Carlota Jin MD 1 [facility], [facility] 2 [place] [phone] 01/03/2025 6:45 EDT Treatment [facility] [address] [place], [place] [phone] Carlota Jin MD 1 [facility], [facility] 2 [place] [phone] 01/05/2025 6:45 EDT Treatment [facility] [place] [address] [place], [place] [phone] Carlota Jin MD 1 [facility], [facility] 2 [place] [phone] 01/08/2025 6:45 EDT Treatment [facility] [place] [address] [place], [place] [phone] Carlota Jin MD 1 [facility], [facility] 2 [place] [phone] 01/10/2025 6:45 EDT Treatment [facility] [place] [address] [place], [place] [phone] Carlota Jin MD [address] [place] [address], [address] [phone] 01/12/2025 6:45 EDT Treatment [facility] [place] [address] [place], [place] [phone] Carlota Jin MD 1 [facility], [facility] 2 [place] [phone] 01/15/2025 6:45 EDT Treatment [facility] [place] [address] [place], [place] [phone] Carlota Jin MD 1 [facility], [facility] 2 [place] [phone] 01/17/2025 6:45 EDT Treatment [facility] [place] [address] [place], [place] [id number] Carlota Jin MD 1 [facility], [facility] 2 [place] [phone] 01/19/2025 6:45 EDT Treatment [facility] [place] [address] [place], [place] [address] Carlota Jin MD 1 [facility], [facility] 2 [place] [phone] 01/22/2025 6:45 EDT Treatment [facility] [place] [address] [place], [place] [phone] Carlota Jin MD 1 [facility], [facility] 2 [place] [phone] 01/24/2025 6:45 EDT Treatment [facility] [place] [address] [place] [address] Carlota Jin MD 1 [facility], [facility] 2 [place] [phone] 01/26/2025 6:45 EDT Treatment [facility] [address] [place] [address] Carlota Jin MD 1 [facility], [facility] 2 [place] [phone] 01/29/2025 6:45 EDT Treatment [facility] [place] [address] [place], [place] [phone] Carlota Jin MD 1 [facility], [facility] 2 [place] [phone] 01/31/2025 6:45 EDT Treatment [facility] [place] [address] [place], [place] [phone] Carlota Jin MD 1 [facility], [facility] 2 [place] [phone] 02/02/2025 6:45 EDT Treatment [facility] [place] [address] [place], [place] [phone] Carlota Jin MD 1 [facility], [facility] 2 [place] [phone] 02/05/2025 6:45 EDT Treatment [facility] [place] [address] [place] [address] aCrlota Jin MD 1 [facility], [facility] 2 [place] [phone] 02/07/2025 6:45 EDT Treatment [facility] [place] [address] [place], [place] [phone] Carlota Jin MD 1 [facility], [facility] 2 [place] [phone] 02/09/2025 6:45 EDT Treatment [facility] [place] [address] [place], [place] [phone] Carlota Jin MD 1 [facility], [facility] 2 [place] [phone] 02/12/2025 6:45 EDT Treatment [facility] [place] [address] [place], [place] [phone] Carlota Jin MD 1 [facility], [facility] 2 [place] [phone] 02/14/2025 6:45 EDT Treatment [facility] [place] [address] [place], [place] [id number] Carlota Jin MD 1 [facility], [address] [phone] 02/16/2025 6:45 EDT Treatment [facility] [place] [address] [place], [place] [id number] Carlota Jin MD 1 [facility], [address] [phone] 02/19/2025 6:45 EDT Treatment [facility] [place] [address] [place], [place] [phone] Carlota Jin MD 1 [facility], [address] [phone] 02/21/2025 6:45 EDT Treatment [facility] [address] [place], [place] [phone] Carlota Jin MD 1 [facility], [address] [phone] documented as of this encounter Procedures Procedure Name Priority Date/Time Associated Diagnosis Comments COMPLETE BLOOD COUNT Routine 12/15/2023 6:30 EST ESRD (end stage renal disease) ([facility]) HEMODIALYSIS Routine 12/15/2023 6:23 EST ESRD (end stage renal disease) ([facility]) documented in this encounter Results * (ABNORMAL) COMPLETE BLOOD COUNT (12/15/2023 6:30 EST) WBC 16.13(H) 4.00 - 10.40 K/cmm 12/15/2023 21:32 [facility] RBC 2.95(L) 4.36 - 5.78 M/cmm 12/15/2023 21:32 [facility] Hemoglobin 8.7(L) 13.8 - 17.3 g/dL 12/15/2023 21:32 [facility] HCT 27.1(L) 39.5 - 50.2 % 12/15/2023 21:32 [facility] MCV 92 81 - 95 fL 12/15/2023 21:32 [facility] MCH 29.5 27.6 - 33.0 pg 12/15/2023 21:32 [facility] MCHC 32.1(L) 32.8 - 36.4 g/dL 12/15/2023 21:32 [facility] RDW-CV 12.7 <14.2 % 12/15/2023 21:32 [facility] RDW-SD 42.4 <46.0 fl 12/15/2023 21:32 [facility] PLT 323 141 - 377 K/cmm 12/15/2023 21:32 [facility] MPV 11.9 9.5 - 12.7 fL 12/15/2023 21:32 [facility] Blood VENOUS BLOOD / Unknown Venipuncture / Unknown 12/15/2023 6:30 EST 12/15/2023 6:30 EST us Skye Gomez NP HEMATOLOGY & PF4 ORDERABLES Final Result [facility] [address] [place] [address] documented in this encounter Visit Diagnoses Diagnosis ESRD (end stage renal disease) ([facility])- Primary End stage renal disease Anemia of chronic renal failure, unspecified CKD stage Hypoalbuminemia Other disorders of plasma protein metabolism Secondary hyperparathyroidism ([facility]) Secondary hyperparathyroidism (of renal origin) documented in this encounter Administered Medications Inactive Administered Medications - up to 3 most recent administrations Medication Order MAR Action Action Date Dose Rate Site calcium carbonate (TUMS) tablet 500 mg (200 mg elemental calcium) 2 Tablet 2 Tablet, oral, ONCE IN DIALYSIS, 1 dose, On Wed12/15/23 at 0645, Routine, DialysisIndications:ESRD (end stage renal disease) ([facility]),Secondary hyperparathyroidism ([facility]) Given 12/15/2023 6:53 EST 2 Tablets epoetin ken (EPOGEN) 20,000 unit/2 mL injection 1,500 Units 1,500 Units, intravenous, ONCE IN DIALYSIS, 1 dose, On Wed12/15/23 at 0645, Routine, DialysisIndications:ESRD (end stage renal disease) ([facility]),Anemia of chronic renal failure, unspecified CKD stage Given 12/15/2023 6:53 EST 1,500 Units heparin injection 9,000 Units 9,000 Units, intravenous, ONCE IN DIALYSIS, 1 dose, On Wed12/15/23 at 0645, Routine, Dialysis, Now x1 bolus 4500 units to be given at the beginning of dialysis 1500 units/hour to be given over the course of dialysis (9000 units total). Stop 1 hour prior to end of treatment. To be administered per Policy [id number].Indications:ESRD (end stage renal disease) ([facility]) Given 12/15/2023 6:53 EST 9,000 Units LiquaCel liquid protein liquid 30 mL 30 mL, oral, ONCE IN DIALYSIS, 1 dose, On Wed12/15/23 at 0645, RoutineIndications:ESRD (end stage renal disease) ([facility]),Hypoalbuminemia Given 12/15/2023 6:53 EST 30 mL documented in this encounter Orders Dialysis Count Last Ordered Date First Orde red Date HEMODIALYSIS 1 12/15/2023 documented in this encounter Care Teams Scarfer Operator Relationship Specialty Start Date End Date Kne Greer MD [address] [place] [address] PCP - General 07/07/23 documented as of this encounter
--- OUTSIDE RECORDS SUMMARY | 2024-12-05 12:13 | XMS_ITS | Encounter Summary ---
Author Organization [facility] Address [address] [place] [address] Care Team Providers Care Garden Tractor Mechanic Name Role Phone Ken Greer MD Primary Care Provider [phone] Encounter Details Date Type Department Care Team (Latest Contact Info) Description 12/17/2023 6:45 EST Treatment [facility] [address] [place], [place] [id number] Carlota Jin MD [address] [facility] [place] [address] [place] [address] ESRD (end stage renal disease) ([facility]) (Primary Dx); Anemia of chronic renal failure, unspecified CKD stage; Hypoalbuminemia; Secondary hyperparathyroidism ([facility]) Social History Tobacco Use Types [...] - Temperature - - Respiratory Rate 16 12/17/2023 0635 EST Oxygen Saturation - - Inhaled Oxygen Concentration - - Weight 87.5 kg (192 lb 14.4 oz) 12/17/2023 0635 EST Height - - Body Mass Index 27.68 11/07/2023 0500 EST documented in this encounter [...] Progress Notes * Marcela Cox RN - 12/17/2023 0645 EST Received call from Skye Gomez NP to discuss pt. She reports pt WBC increased, wondering how he is doing. Informed CHANNEL SPECIALIST that pt states he is still on PO abx for cellulitis of LLE, (but pt is poor historian). He has been shivering throughout tx, and reporting nausea and vomiting for last 2 days. CHANNEL SPECIALIST ordered blood cultures, which were drawn today. CHANNEL SPECIALIST also reports pt needs to be evaluated today either in ER or by PCP. Pt aware of recommendation and refused. I also spoke to pts and made her aware. She states she will call PCP office as pt will be more willing to see PCP than ER. documented in this encounter Miscellaneous Notes * Flowsheet Note - Marcela Cox RN - 12/17/2023 6461 EST 12/17/23 1047 Post-Hemodialysis Assessment Total Blood Processed (L) 89.62 Liters On Line Clearance: spKt/V 1.59 spKt/V Dialyzer Clearance Lightly streaked Treatment UFR (ml:kg:hr) 5.8 ml:kg:hr Final Critline Profile (%/hr) -1.39 Final Profile Profile A Critline refill Negative Fluid Removed (L) 1.85 L Post-Dialysis Scale Weight 85.5 kg (188 lb 7.9 oz) Wheelchair Weight 0 kg (0 lb) Prosthesis Weight 0 kg (0 lb) Post-Treatment Weight (kg) 85.5 Treatment Weight Change (kg) 2 kg Day Target Weight (kg) 86.2 Post Sitting/Lying BP 132/68 Post Sitting/Lying pulse 70 Temp 36.5 ??C [...] Removed 1.8L UF goal without difficulty. Comments see RN note from today, blood cultures drawn today and plan for pt to f/u with PCP for additional symptoms documented in this encounter Plan of Treatment Upcoming Encounters Date Type Department Care Team (Late st Contact Info) Description 12/06/2024 6:45 EST Treatment [facility] [place] [address] [place] [address] Carlota Jin MD [address] [facility], [address] [place] [address] 12/08/2024 6:45 EST Treatment [facility] [place] [address] [place], [place] [phone] Carlota Jin MD [address] [facility] [place], [facility] 2 [place] [phone] 12/11/2024 6:45 EST Treatment [facility] [place] [address] [place], [place] [phone] Carlota Jin MD [address] [facility] [place], [facility] 2 [place] [phone] 12/13/2024 6:45 EST Treatment [facility] [place] [address] [place], [place] [phone] Carlota Jin MD [address] [facility], [facility] 2 [place] [phone] 12/15/2024 6:45 EST Treatment [facility] [place] [address] [place], [place] [phone] Carlota Jin MD [address] [facility] [place], [facility] 2 [place] [phone] 12/18/2024 6:45 EST Treatment [facility] [place] [address] [place], [place] [phone] Carlota Jin MD [address] [facility] [place], [facility] [address] [place] [phone] 12/20/2024 6:45 EST Treatment [facility] [place] [address] [place], [place] [phone] Carlota Jin MD 1 [facility], [facility] [address] [place] [phone] 12/22/2024 6:45 EST Treatment [facility] [place] [address] [place], [place] [address] Carlota Jin MD 1 [facility], [facility] 2 [place] [phone] 12/25/2024 6:45 EST Treatment [facility] [place] [address] [place], [place] [phone] Carlota Jin MD [address] [facility] [place], [facility] [address] [place] [phone] 12/27/2024 6:45 EST Treatment [facility] [place] [address] [place], [place] [phone] Carlota Jin MD 1 [facility], [facility] 2 [place] [phone] 12/29/2024 6:45 EST Treatment [facility] [place] [address] [place], [place] [phone] Carlota Jin MD 1 [facility], [facility] 2 [place] [phone] 01/01/2025 6:45 EDT Treatment [facility] [place] [address] [place], [place] [phone] Carlota Jin MD 1 [facility], [facility] 2 [place] [phone] 01/03/2025 6:45 EDT Treatment [facility] [place] [address] [place], [place] [phone] Carlota Jin MD [address] [facility] [place], [facility] [address] [place] [phone] 01/05/2025 6:45 EDT Treatment [facility] [place] [address] [place], [place] [phone] Carlota Jin MD [address] [place] [address], [address] [phone] 01/08/2025 6:45 EDT Treatment [facility] [place] [address] [place], [place] [phone] Carlota Jin MD [address] [place] [address], [address] [phone] 01/10/2025 6:45 EDT Treatment [facility] [place] [address] [place], [place] [phone] Carlota Jin MD [address] [place] [address], [facility] [address] [place] [phone] 01/12/2025 6:45 EDT Treatment [facility] [place] [address] [place], [place] [phone] Carlota Jin MD [address] [facility] [place], [facility] 2 [place] [phone] 01/15/2025 6:45 EDT Treatment [facility] [place] [address] [place], [place] [phone] Carlota Jin MD 1 [facility], [facility] 2 [place] [phone] 01/17/2025 6:45 EDT Treatment [facility] [place] [address] [place], [place] [phone] Carlota Jin MD 1 [facility], [facility] 2 [place] [phone] 01/19/2025 6:45 EDT Treatment [facility] [place] [address] [place], [place] [phone] Carlota Jin MD [address] [facility] [place], [facility] 2 [place] [phone] 01/22/2025 6:45 EDT Treatment [facility] [place] [address] [place] [address] Carlota Jin MD [address] [facility] [place], [facility] 2 [place] [phone] 01/24/2025 6:45 EDT Treatment [facility] [place] [address] [place], [place] [phone] Carlota iJn MD [address] [facility] [place], [facility] 2 [place] [phone] 01/26/2025 6:45 EDT Treatment [facility] [place] [address] [place], [place] [phone] Carlota Jin MD [address] [facility] [place], [facility] 2 [place] [phone] 01/29/2025 6:45 EDT Treatment [facility] [place] [address] [place], [place] [phone] Carlota iJn MD [address] [facility] [place], [facility] 2 [place] [phone] 01/31/2025 6:45 EDT Treatment [facility] [place] [address] [place], [place] [phone] Carlota Jin MD [address] [facility] [place] [place], [facility] 2 [place] [phone] 02/02/2025 6:45 EDT Treatment [facility] [place] [address] [place], [place] [phone] Carlota Jin MD [address] [facility] [place] [place], [facility] 2 [place] [phone] 02/05/2025 6:45 EDT Treatment [facility] [place] [address] [place], [place] [address] Carlota Jin MD [address] [facility] [place], [facility] 2 [place] [phone] 02/07/2025 6:45 EDT Treatment [facility] [place] [address] [place], [place] [phone] Carlota Jin MD [address] [facility] [place], [facility] 2 [place] [phone] 02/09/2025 6:45 EDT Treatment [facility] [place] [address] [place], [place] [phone] Carlota Jin MD [address] [facility] [place] [place], [facility] 2 [place] [phone] 02/12/2025 6:45 EDT Treatment [facility] [place] [address] [place] [address] Carlota Jin MD 1 [facility], [facility] 2 [place] [phone] 02/14/2025 6:45 EDT Treatment [facility] [place] [address] [place], [place] [phone] Carlota Jin MD [address] [facility] [place] [place], [facility] 2 [place] [phone] 02/16/2025 6:45 EDT Treatment [facility] [place] [address] [place], [place] [phone] Carlota Jin MD [address] [facility] [place], [facility] 2 [place] [phone] 02/19/2025 6:45 EDT Treatment [facility] [place] [address] [place], [place] [phone] Carlota Jin MD [address] [facility] [place], [facility] [address] [place] [phone] 02/21/2025 6:45 EDT Treatment [facility] [place] [address] [place], [place] [phone] Carlota Jin MD 1 [facility], [facility] 2 [place] [phone] documented as of this encounter Procedures Procedure Name Priority Date/Time Associated Diagnosis Comments BACTERIAL CULTURE, BLOOD Routine 12/17/2023 10:53 EST BACTERIAL CULTURE, BLOOD Routine 12/17/2023 10:53 EST HEMODIALYSIS Routine 12/17/2023 6:35 EST ESRD (end stage renal disease) ([facility]) documented in this encounter Results * BACTERIAL CULTURE, BLOOD (12/17/2023 10:53 EST) Organism ID No Growth at 5 days 12/22/2023 11:01 EST [facility] Blood VENOUS BLOOD / Unknown Venipuncture / Unknown 12/17/2023 10:53 EST 12/17/2023 10:53 EST Skye Gomez NP MICROBIOLOGY - GENERAL ORDE RABLES Final Result Performing Organization Address City/[facility]/ZIP Co de Phone Number [facility] [address] [place] [address] * BACTERIAL CULTURE, BLOOD (12/17/2023 10:53 EST) Organism ID No Growth at 5 days 12/22/2023 11:01 EST [facility] Blood VENOUS BLOOD / Unknown Venipuncture / Unknown 12/17/2023 10:53 EST 12/17/2023 10:53 EST Skye Gomez NP MICROBIOLOGY - GENERAL ORDE RABLES Final Result Performing Organization Address City/[facility]/ZIP Co de Phone Number [facility] [address] [place], [place] [phone] documented in this encounter Visit Diagnoses Diagnosis ESRD (end stage renal disease) ([facility])- Primary End stage renal disease [...] oral, ONCE IN DIALYSIS, 1 dose, On Wed12/17/23 at 0700, Routine, DialysisIndications:ESRD (end stage renal disease) ([facility]),Secondary hyperparathyroidism ([facility]) Given 12/17/2023 7:02 EST 2 Tablets epoetin ken (EPOGEN) 20,000 unit/2 mL injection 1,500 Units 1,500 Units, intravenous, ONCE IN DIALYSIS, 1 dose, On Wed12/17/23 at 0700, Routine, DialysisIndications:ESRD (end stage renal disease) ([facility]),Anemia of chronic renal failure, unspecified CKD stage Given 12/17/2023 7:02 EST 1,500 Units heparin injection 9,000 Units 9,000 Units, intravenous, ONCE IN DIALYSIS, 1 dose, On Wed12/17/23 at 0700, Routine, Dialysis, Now x1 bolus 4500 units to be given at the beginning of dialysis 1500 units/hour to be given over the course of dialysis (9000 units total). Stop 1 hour prior to end of treatment. To be administered per Policy [id number].Indications:ESRD (end stage renal disease) ([facility]) Given 12/17/2023 7:02 EST 9,000 Units LiquaCel liquid protein liquid 30 mL 30 mL, oral, ONCE IN DIALYSIS, 1 dose, On Wed12/17/23 at 0700, RoutineIndications:ESRD (end stage renal disease) ([facility]),Hypoalbuminemia Given 12/17/2023 7:02 EST 30 mL documented in this encounter Orders Dialysis Count Last Ordered Date First Orde red Date HEMODIALYSIS 1 12/17/2023 documented in this encounter Care Teams Garden Tractor Mechanic Relationship Specialty Start Date End Date Ken Greer MD [address] [place] [address] PCP - General 07/07/23 documented as of this encounter
--- OUTSIDE RECORDS SUMMARY | 2024-12-05 12:13 | XMS_ITS | Encounter Summary ---
Author Organization [facility] Address [address] [place] [address] Care Team Providers Care Gutter Mouth Cutter Name Role Phone Ken Greer MD Primary Care Provider [phone] Encounter Details Date Type Department Care Team (Latest Contact Info) Description 12/13/2023 6:45 EST Treatment [facility] [address] [place], [place] [id number] Carlota Jin MD 1 [facility], Level 2 [place] [address] ESRD (end stage renal disease) ([facility]) (Primary Dx); Anemia of chronic renal failure, unspecified CKD stage; Hypoalbuminemia; Secondary hyperparathyroidism ([facility]) Social History Tobacco Use Types [...] - Temperature - - Respiratory Rate 16 12/13/2023 0624 EST Oxygen Saturation - - Inhaled Oxygen Concentration - - Weight 89.1 kg (196 lb 6.9 oz) 12/13/[address] Height - - Body Mass Index 28.18 11/07/2023 0500 EST documented in this encounter [...] Flowsheet Note - Marcela Cox RN - 12/13/2023 1433 EST 12/13/23 1052 Post-Hemodialysis Assessment Total Blood Processed (L) 90.78 Liters On Line Clearance: spKt/V 1.56 spKt/V Dialyzer Clearance Lightly streaked Treatment UFR (ml:kg:hr) 8.08 ml:kg:hr Final Critline Profile (%/hr) -1.22 Final Profile Profile A Critline refill Negative (H1: 27.3 H2:27.3) Fluid Removed (L) 3.1 L Post-Dialysis Scale Weight 87.2 kg (192 lb 3.9 oz) Wheelchair Weight 0 kg (0 lb) Prosthesis Weight 0.9 kg (1 lb 15.8 oz) Post-Treatment Weight (kg) 86.3 Treatment Weight Change (kg) 2.8 kg Day Target Weight (kg) 86.5 Post Sitting/Lying BP 128/72 Post Sitting/Lying pulse 67 Temp 35.6 ??C (96.1 ??F) Temp src Temporal Minutes Short -241 [...] Contact Info) Description 12/06/2024 6:45 EST Treatment [facility] [place] [address] [place], [place] [id number] Carlota Jin MD 1 [facility], [facility] 2 [place] [address] 12/08/2024 6:45 EST Treatment [facility] [address] [place], [place] [id number] Carlota Jin MD 1 [facility], [facility] 2 [place] [phone] 12/11/2024 6:45 EST Treatment [facility] [address] [place], [place] [id number] Carlota Jin MD 1 [facility], [facility] 2 [place] [phone] 12/13/2024 6:45 EST Treatment [facility] [place] [address] [place], [place] [id number] Carlota Jin MD 1 [facility], [facility] 2 [place] [phone] 12/15/2024 6:45 EST Treatment [facility] [place] [address] [place], [place] [id number] Carlota Jin MD [address] [place] [address], [facility] 2 [place] [phone] 12/18/2024 6:45 EST Treatment [facility] [place] [address] [place], [place] [id number] Carlota Jin MD [address] [place] [address], [facility] 2 [place] [phone] 12/20/2024 6:45 EST Treatment [facility] [place] [address] [place], [place] [id number] Carlota Jin MD 1 [facility], [facility] 2 [place] [phone] 12/22/2024 6:45 EST Treatment [facility] [place] [address] [place], [place] [id number] Carlota iJn MD [address] [place] [address], [facility] 2 [place] [phone] 12/25/2024 6:45 EST Treatment [facility] [place] [address] [place], [place] [id number] Carlota Jin MD 1 [facility], [facility] 2 [place] [phone] 12/27/2024 6:45 EST Treatment [facility] - [place] [address] [place], [place] [id number] Carlota Jin MD 1 [facility], [facility] 2 [place] [phone] 12/29/2024 6:45 EST Treatment [facility] [place] [address] [place], [place] [id number] Carlota Jin MD 1 [facility], [facility] 2 [place] [phone] 01/01/2025 6:45 EDT Treatment [facility] [place] [address] [place], [place] [id number] Carlota Jin MD 1 [facility], [facility] 2 [place] [phone] 01/03/2025 6:45 EDT Treatment [facility] [address] [place] [address] Carlota Jin MD 1 [facility], [facility] 2 [place] [phone] 01/05/2025 6:45 EDT Treatment [facility] [address] [place], [place] [id number] Carlota Jin MD 1 [facility], [facility] 2 [place] [phone] 01/08/2025 6:45 EDT Treatment [facility] [place] [address] [place], [place] [id number] Carlota Jin MD 1 [facility], [facility] 2 [place] [phone] 01/10/2025 6:45 EDT Treatment [facility] - [place] [address] [place], [place] [id number] Carlota Jin MD 1 [facility], [facility] 2 [place] [phone] 01/12/2025 6:45 EDT Treatment [facility] [place] [address] [place] [address] Carlota Jin MD [address] [place] [address], [facility] 2 [place] [phone] 01/15/2025 6:45 EDT Treatment [facility] [place] [address] [place], [place] [id number] Carlota Jin MD [address] [place] [address], [facility] 2 [place] [phone] 01/17/2025 6:45 EDT Treatment [facility] [place] [address] [place], [place] [id number] Carlota Jin MD 1 [facility], [facility] 2 [place] [phone] 01/19/2025 6:45 EDT Treatment [facility] - [place] [address] [place], [place] [id number] Carlota Jin MD 1 [facility], [facility] 2 [place] [phone] 01/22/2025 6:45 EDT Treatment [facility] [place] [address] [place], [place] [id number] Carlota Jin MD 1 [facility], [facility] 2 [place] [phone] 01/24/2025 6:45 EDT Treatment [facility] [place] [address] [place], [place] [id number] Carlota Jin MD 1 [facility], [facility] 2 [place] [phone] 01/26/2025 6:45 EDT Treatment [facility] [place] [address] [place], [place] [id number] Carlota Jin MD 1 [facility], [facility] 2 [place] [phone] 01/29/2025 6:45 EDT Treatment [facility] [place] [address] [place], [place] [id number] Carlota Jin MD 1 [facility], [facility] 2 [place] [phone] 01/31/2025 6:45 EDT Treatment [facility] [place] [address] [place], [place] [id number] Carlota Jin MD 1 [facility], [facility] 2 [place] [phone] 02/02/2025 6:45 EDT Treatment [facility] [place] [address] [place], [place] [id number] Carlota Jin MD 1 [facility], [facility] 2 [place] [phone] 02/05/2025 6:45 EDT Treatment [facility] - [place] [address] [place], [place] [id number] Carlota Jin MD 1 [facility], [facility] 2 [place] [phone] 02/07/2025 6:45 EDT Treatment [facility] - [place] [address] [place], [place] [id number] Carlota Jin MD 1 [facility], [facility] 2 [place] [phone] 02/09/2025 6:45 EDT Treatment [facility] - [place] [address] [place], [place] [address] Carlota Jin MD 1 [facility], [facility] 2 [place] [phone] 02/12/2025 6:45 EDT Treatment [facility] [place] [address] [place], [place] [id number] Carlota Jin MD 1 [facility], [facility] 2 [place] [phone] 02/14/2025 6:45 EDT Treatment [facility] - [place] [address] [place], [place] [id number] Carlota Jin MD 1 [facility], [address] [phone] 02/16/2025 6:45 EDT Treatment [facility] - [place] [address] [place], [place] [id number] Carlota Jin MD 1 [facility], [address] [phone] 02/19/2025 6:45 EDT [facility] [address] [place], [place] [id number] Carlota Jin MD [address] [phone] 02/21/2025 6:45 EDT Treatment [facility] [address] [place], [place] [id number] Carlota Jin MD [address] [phone] documented as of this encounter Procedures Procedure Name Priority Date/Time Associated Diagnosis Comments HEMODIALYSIS Routine 12/13/2023 6:24 EST ESRD (end stage renal disease) ([facility]) documented in this encounter Visit Diagnoses Diagnosis ESRD (end stage renal disease) ([facility])- Primary End stage renal disease Anemia of chronic renal failure, unspecified CKD stage Hypoalbuminemia Other disorders of plasma protein metabolism Secondary hyperparathyroidism ([facility]) Secondary hyperparathyroidism (of renal origin) documented in this encounter Administered Medications Inactive Administered Medications - up to 3 most recent administrations Medication Order MAR Action Action Date Dose Rate Site calcium carbonate (TUMS) tablet 500 mg (200 mg elemental calcium) 2 Tablet 2 Tablet, oral, ONCE IN DIALYSIS, 1 dose, On Wed12/13/23 at 0645, Routine, DialysisIndications:ESRD (end stage renal disease) ([facility]),Secondary hyperparathyroidism ([facility]) Given 12/13/2023 6:55 EST 2 Tablets epoetin ken (EPOGEN) 20,000 unit/2 mL injection 1,500 Units 1,500 Units, intravenous, ONCE IN DIALYSIS, 1 dose, On Wed12/13/23 at 0645, Routine, DialysisIndications:ESRD (end stage renal disease) ([facility]),Anemia of chronic renal failure, unspecified CKD stage Given 12/13/2023 6:55 EST 1,500 Units heparin injection 9,000 Units 9,000 Units, intravenous, ONCE IN DIALYSIS, 1 dose, On Wed12/13/23 at 0645, Routine, Dialysis, Now x1 bolus 4500 units to be given at the beginning of dialysis 1500 units/hour to be given over the course of dialysis (9000 units total). Stop 1 hour prior to end of treatment. To be administered per Policy [id number].Indications:ESRD (end stage renal disease) ([facility]) Given 12/13/2023 6:55 EST 9,000 Units LiquaCel liquid protein liquid 30 mL 30 mL, oral, ONCE IN DIALYSIS, 1 dose, On Wed12/13/23 at 0645, RoutineIndications:ESRD (end stage renal disease) ([facility]),Hypoalbuminemia Given 12/13/2023 6:55 EST 30 mL documented in this encounter Orders Dialysis Count Last Ordered Date First Orde red Date HEMODIALYSIS 1 12/13/2023 documented in this encounter Care Teams Gutter Mouth Cutter Relationship Specialty Start Date End Date Ken Greer MD [address] [place] [address] PCP - General 07/07/23 documented as of this encounter
--- OUTSIDE RECORDS SUMMARY | 2024-12-05 12:13 | XMS_ITS | Encounter Summary ---
Author Organization [facility] Address [address] [place] [address] Care Team Providers Care Rubber Cutter Name Role Phone Ken Greer MD Primary Care Provider [phone] Reason for Referral * Vascular Lab (Routine/Next Available) - Authorization Not Required Specialty Diagnoses / Procedures Referred By Nader gardiner Referred To Contact Diagnoses Ulcer of left lower extremity (HCC-CMS) Procedures US MELLY AND PHYSIOLOGIC STUDY Scooter Bolden DPM [address] [place] [address] Phone: tel: fax: [facility] Vascular Lab Referral ID Status Reason Start Date Expiration Date Visits Requested Visits Authorized [id number] Authorization Not Required 12/03/2023 1 1 Encounter Details Date Type Department Care Team (Late st Contact Info) Description 12/03/2023 Transcribe Orders Vascular Surgery and Endovascular Therapy - [address] [id number] Scooter Bolden DPM [address] [place] [address] Ulcer of left lower extremity (HCC-CMS) (Primary Dx) Social History Tobacco Use Types [...] EST Treatment [facility] [address] [place] [address] Carlota Jin MD 1 [facility], Level [address] [place] [address] 12/08/2024 6:45 EST Treatment [facility] - [place] [address] [place], [place] [address] Carlota Jin MD 1 [facility], [address] [phone] 12/11/2024 6:45 EST Treatment [facility] [place] [address] [place] [address] Carlota Jin MD 1 [facility], [address] [phone] 12/13/2024 6:45 EST Treatment [facility] [place] [address] [place], [place] [id number] Carlota Jin MD 1 [facility], [address] [phone] 12/15/2024 6:45 EST Treatment [facility] [place] [address] [place], [place] [id number] Carlota Jin MD 1 [facility], [address] [phone] 12/18/2024 6:45 EST Treatment [facility] [address] [place], [place] [id number] Carlota Jin MD [address] [phone] 12/20/2024 6:45 EST Treatment [facility] [address] [place], [place] [id number] Carlota Jin MD 1 [facility], [address] [phone] 12/22/2024 6:45 EST Treatment [facility] [place] [address] [place], [place] [id number] Carlota Jin MD 1 [facility], [facility] 2 [place] [phone] 12/25/2024 6:45 EST Treatment [facility] [place] [address] [place], [place] [id number] Carlota Jin MD [address] [facility], [facility] 2 [place] [phone] 12/27/2024 6:45 EST Treatment [facility] [address] [place] [address] Carlota Jin MD 1 [facility], [facility] 2 [place] [phone] 12/29/2024 6:45 EST Treatment [facility] [address] [place], [place] [id number] Carlota Jin MD [address] [facility], [facility] 2 [place] [phone] 01/01/2025 6:45 EDT Treatment [facility] [address] [place], [place] [id number] Carlota Jin MD [address] [facility], Level [address] [place] [phone] 01/03/2025 6:45 EDT Treatment [facility] - [place] [address] [place], [place] [id number] Carlota Jin MD 1 [facility], [facility] 2 [place] [phone] 01/05/2025 6:45 EDT Treatment [facility] [place] [address] [place], [place] [id number] Carlota Jin MD 1 [facility], [address] [phone] 01/08/2025 6:45 EDT Treatment [facility] [place] [address] [place], [place] [id number] Carlota Jin MD 1 [facility], [address] [phone] 01/10/2025 6:45 EDT Treatment [facility] [place] [address] [place], [place] [id number] Carlota Jin MD [address] [phone] 01/12/2025 6:45 EDT Treatment [facility] [place] [address] [place], [place] [id number] Carlota Jin MD [address] [phone] 01/15/2025 6:45 EDT Treatment [facility] [place] [address] [place], [place] [id number] Carlota Jin MD 1 [facility], [facility] 2 [place] [phone] 01/17/2025 6:45 EDT Treatment [facility] [place] [address] [place], [place] [id number] Carlota Jin MD [address] [facility], [facility] 2 [place] [phone] 01/19/2025 6:45 EDT Treatment [facility] [place] [address] [place], [place] [id number] Carlota Jin MD 1 [facility], [facility] 2 [place] [phone] 01/22/2025 6:45 EDT Treatment [facility] [place] [address] [place], [place] [id number] Carlota Jin MD 1 [facility], [facility] 2 [place] [phone] 01/24/2025 6:45 EDT Treatment [facility] [place] [address] [place] [address] Carlota Jin MD [address] [facility], [facility] 2 [place] [phone] 01/26/2025 6:45 EDT Treatment [facility] [place] [address] [place], [place] [id number] Carlota Jin MD 1 [facility], [facility] 2 [place] [phone] 01/29/2025 6:45 EDT Treatment [facility] [place] [address] [place], [place] [id number] Carlota Jin MD 1 [facility], [facility] 2 [place] [phone] 01/31/2025 6:45 EDT Treatment [facility] [place] [address] [place], [place] [id number] Carlota Jin MD [address] [place] [address], [address] [phone] 02/02/2025 6:45 EDT Treatment [facility] [place] [address] [place], [place] [id number] Carlota Jin MD [address] [place] [address], [address] [phone] 02/05/2025 6:45 EDT Treatment [facility] [place] [address] [place], [place] [id number] Carlota Jin MD [address] [place] [address], [facility] 2 [place] [phone] 02/07/2025 6:45 EDT Treatment [facility] [place] [address] [place], [place] [id number] Carlota Jin MD [address] [place] [address], [facility] 2 [place] [phone] 02/09/2025 6:45 EDT Treatment [facility] [place] [address] [place], [place] [id number] Carlota Jin MD 1 [facility], Level [address] [place] [phone] 02/12/2025 6:45 EDT Treatment [facility] [place] [address] [place], [place] [id number] Carlota Jin MD 1 [facility], [facility] 2 [place] [phone] 02/14/2025 6:45 EDT Treatment [facility] [address] [place], [place] [id number] Carlota Jin MD 1 [facility], [facility] 2 [place] [phone] 02/16/2025 6:45 EDT Treatment [facility] [place] [address] [place] [address] Carlota Jin MD [address] [facility], [facility] 2 [place] [phone] 02/19/2025 6:45 EDT Treatment [facility] [address] [place], [place] [id number] Carlota Jin MD [address] [facility], [facility] 2 [place] [phone] 02/21/2025 6:45 EDT Treatment [facility] [address] [place], [place] [id number] Carlota Jin MD [address] [facility], [facility] 2 [place] [phone] Scheduled Orders Name Type Priority Associated Diagnoses Order Schedule US MELLY AND PHYSIOLOGIC STUDY Vascular Ultrasound Routine Ulcer of left lower extremity (HCC-CMS) Ordered: 12/03/2023 documented as of this encounter Visit Diagnoses Diagnosis Ulcer of left lower extremity (HCC-CMS)- Primary Ulcer of lower limb, unspecified documented in this encounter Care Teams Rubber Cutter Relationship Specialty Start Date End Date Ken Greer MD [address] [place] [address] PCP - General 07/07/23 documented as of this encounter
--- OUTSIDE RECORDS SUMMARY | 2024-12-05 12:13 | XMS_ITS | Encounter Summary ---
Author Organization [facility] Address [address] [place] [address] Care Team Providers Care Dental Technologist Name Role Phone Ken Greer MD Primary Care Provider [phone] Encounter Details Date Type Department Care Team (Late st Contact Info) Description 12/03/2023 Documentation Visit [address] [place], [place] [address] Melissa Crespo, VIDYA Social History Tobacco Use [...] Date of Assessment Author No 11/07/2023 1:52 Satrhak De Santiago RN * Do you have [...] Answer Entry Date Author No 11/07/2023 1:52 Srathak De Santiago RN documented in this encounter Plan of Treatment Upcoming Encounters Date Type Department Care Team (Late st Contact Info) Description 12/06/2024 6:45 EST Treatment [facility] [place] [address] [place], [place] [id number] Carlota Jin MD 1 [facility], [facility] [address] [place] [phone] 12/08/2024 6:45 EST Treatment [facility] [place] [address] [place], [place] [id number] Carlota Jin MD 1 [facility], [facility] [address] [place] [phone] 12/11/2024 6:45 EST Treatment [facility] [place] [address] [place], [place] [id number] Carlota Jin MD 1 [facility], [facility] [address] [place] [phone] 12/13/2024 6:45 EST Treatment [facility] [address] [place], [place] [id number] Carlota Jin MD 1 [facility], Level [address] [place] [phone] 12/15/2024 6:45 EST Treatment [facility] [place] [address] [place], [place] [address] Carlota Jin MD 1 [facility], [facility] [address] [place] [phone] 12/18/2024 6:45 EST Treatment [facility] [place] [address] [place], [place] [id number] Carlota Jin MD 1 [facility], [facility] [address] [place] [phone] 12/20/2024 6:45 EST Treatment [facility] [place] [address] [place], [place] [id number] Carlota Jin MD 1 [facility], [facility] [address] [place] [phone] 12/22/2024 6:45 EST Treatment [facility] [place] [address] [place] [address] Carlota Jin MD 1 [facility], [facility] [address] [place] [phone] 12/25/2024 6:45 EST Treatment [facility] [place] [address] [place], [place] [id number] Carlota Jin MD 1 [facility], [facility] [address] [place] [phone] 12/27/2024 6:45 EST Treatment [facility] [place] [address] [place], [place] [id number] Carlota Jin MD 1 [facility], [facility] [address] [place] [phone] 12/29/2024 6:45 EST Treatment [facility] [place] [address] [place], [place] [id number] Carlota Jin MD 1 [facility], [facility] [address] [place] [phone] 01/01/2025 6:45 EDT Treatment [facility] [place] [address] [place], [place] [id number] Carlota Jin MD 1 [facility], [facility] [address] [place] [phone] 01/03/2025 6:45 EDT Treatment [facility] [place] [address] [place], [place] [id number] Carlota Jin MD [address] [place] [address], [facility] [address] [place] [phone] 01/05/2025 6:45 EDT Treatment [facility] [place] [address] [place], [place] [id number] Carlota Jin MD 1 [facility], [facility] [address] [place] [phone] 01/08/2025 6:45 EDT Treatment [facility] [place] [address] [place], [place] [id number] Carlota Jin MD 1 [facility], [facility] [address] [place] [phone] 01/10/2025 6:45 EDT Treatment [facility] [place] [address] [place], [place] [id number] Carlota Jin MD 1 [facility], [facility] [address] [place] [phone] 01/12/2025 6:45 EDT Treatment [facility] [place] [address] [place], [place] [id number] Carlota Jin MD 1 [facility], [facility] [address] [place] [phone] 01/15/2025 6:45 EDT Treatment [facility] [place] [address] [place] [address] Carlota Jin MD 1 [facility], [facility] [address] [place] [phone] 01/17/2025 6:45 EDT Treatment [facility] [place] [address] [place], [place] [id number] Carlota Jin MD 1 [facility], [facility] [address] [place] [phone] 01/19/2025 6:45 EDT Treatment [facility] [place] [address] [place], [place] [id number] Carlota Jin MD 1 [facility], [facility] [address] [place] [phone] 01/22/2025 6:45 EDT Treatment [facility] [place] [address] [place], [place] [id number] Carlota Jin MD 1 [facility], [facility] [address] [place] [phone] 01/24/2025 6:45 EDT Treatment [facility] [place] [address] [place], [place] [id number] Carlota Jin MD 1 [facility], [facility] [address] [place] [phone] 01/26/2025 6:45 EDT Treatment [facility] [place] [address] [place], [place] [id number] Carlota Jin MD 1 [facility], [facility] [address] [place] [phone] 01/29/2025 6:45 EDT Treatment [facility] [place] [address] [place], [place] [id number] Carlota Jin MD 1 [facility], [facility] [address] [place] [phone] 01/31/2025 6:45 EDT Treatment [facility] [place] [address] [place], [place] [id number] Carlota Jin MD 1 [facility], [facility] [address] [place] [phone] 02/02/2025 6:45 EDT Treatment [facility] [place] [address] [place], [place] [address] Carlota Jin MD 1 [facility], [facility] [address] [place] [phone] 02/05/2025 6:45 EDT Treatment [facility] [place] [address] [place] [address] Carlota Jin MD 1 [facility], [facility] [address] [place] [phone] 02/07/2025 6:45 EDT Treatment [facility] [place] [address] [place], [place] [id number] Carlota Jin MD 1 [facility], [facility] [address] [place] [phone] 02/09/2025 6:45 EDT Treatment [facility] [place] [address] [place], [place] [id number] Carlota Jin MD 1 [facility], [facility] [address] [place] [phone] 02/12/2025 6:45 EDT Treatment [facility] [place] [address] [place], [place] [id number] Carlota Jin MD 1 [facility], [facility] [address] [place] [phone] 02/14/2025 6:45 EDT Treatment [facility] [place] [address] [place], [place] [id number] Carlota Jin MD 1 [facility], [facility] [address] [place] [phone] 02/16/2025 6:45 EDT [facility] [address] [place], [place] [id number] Carlota Jin MD 1 [facility], [facility] [address] [place] [phone] 02/19/2025 6:45 EDT Treatment [facility] [address] [place], [place] [id number] Carlota Jin MD [address] [place] [address], [facility] [address] [place] [phone] 02/21/2025 6:[address] [facility] [address] [place], [place] [id number] Carlota Jin MD [address] [place] [address], [facility] [address] [place] [phone] documented as of this encounter Visit Diagnoses Not on filedocumented in this encounter Care Teams Dental Technologist Relationship Specialty Start Date End Date Ken Greer MD [facility] [place] [address] PCP - General 07/07/23 documented as of this encounter
--- OUTSIDE RECORDS SUMMARY | 2024-12-05 12:13 | XMS_ITS | Encounter Summary ---
Author Organization [facility] Address [address] [place] [address] Care Team Providers Care Seam Sewer Name Role Phone Ken Greer MD Primary Care Provider [phone] Encounter Details Date Type Department Care Team (Latest Contact Info) Description 12/10/2023 6:45 EST Treatment [facility] [address] [place], [place] [phone] Carlota Jin MD 1 [facility], Level [address] [place] [phone] ESRD (end stage renal disease) ([facility]) (Primary Dx); Anemia of chronic renal failure, unspecified CKD stage; Hypoalbuminemia; Secondary hyperparathyroidism ([facility]) Social History Tobacco Use [...] - Temperature - - Respiratory Rate 16 12/10/2023 0618 EST Oxygen Saturation - - Inhaled Oxygen Concentration - - Weight 88.2 kg (194 lb 7.1 oz) 12/10/[address] Height - - Body Mass Index 27.9 11/07/2023 0500 EST documented in this encounter [...] Flowsheet Note - Marcela Cox RN - 12/10/2023 1405 EST 12/10/23 1043 Post-Hemodialysis Assessment Total Blood Processed (L) 90.78 Liters On Line Clearance: spKt/V 1.61 spKt/V Dialyzer Clearance Lightly streaked Treatment UFR (ml:kg:hr) 6.05 ml:kg:hr Critline refill Not done Fluid Removed (L) 2.5 L Post-Dialysis Scale Weight 106.9 kg (235 lb 10.8 oz) Wheelchair Weight 20.8 kg (45 lb 13.7 oz) Prosthesis Weight 0 kg (0 lb) Post-Treatment Weight (kg) 86.1 Treatment Weight Change (kg) 2.1 kg Day Target Weight (kg) 86.2 Post Sitting/Lying BP 150/81 Post Sitting/Lying pulse 71 Temp 36.7 ??C [...] Contact Info) Description 12/06/2024 6:45 EST Treatment [facility] [address] [place], [place] [id number] Carlota Jin MD [address] [place] [phone] 12/08/2024 6:45 EST Treatment [facility] [address] [place], [place] [id number] Carlota Jin MD [address] [place] [phone] 12/11/2024 6:45 EST Treatment [facility] [address] [place], [place] [id number] Carlota Jin MD [address] [place] [phone] 12/13/2024 6:45 EST Treatment [facility] [address] [place] [id number] Carlota Jin MD 1 [facility], [facility] [address] [place] [phone] 12/15/2024 6:45 EST Treatment [facility] [place] [address] [place], [place] [id number] Carlota Jin MD 1 [facility], [facility] [address] [place] [phone] 12/18/2024 6:45 EST Treatment [facility] [place] [address] [place], [place] [id number] Carlota Jin MD 1 [facility], [facility] [address] [place] [phone] 12/20/2024 6:45 EST Treatment [facility] [place] [address] [place], [place] [id number] Carlota Jin MD 1 [facility], [facility] [address] [place] [phone] 12/22/2024 6:45 EST Treatment [facility] [place] [address] [place], [place] [id number] Carlota Jin MD 1 [facility], [facility] [address] [place] [phone] 12/25/2024 6:45 EST Treatment [facility] [place] [address] [place], [place] [id number] Carlota Jin MD 1 [facility], [facility] [address] [place] [phone] 12/27/2024 6:45 EST Treatment [facility] [place] [address] [place], [place] [id number] Carlota Jin MD 1 [facility], [facility] [address] [place] [phone] 12/29/2024 6:45 EST Treatment [facility] [place] [address] [place], [place] [id number] Carlota Jin MD 1 [facility], [facility] [address] [place] [phone] 01/01/2025 6:45 EDT Treatment [facility] [place] [address] [place] [address] Carlota Jin MD 1 [facility], [address] [phone] 01/03/2025 6:45 EDT Treatment [facility] [place] [address] [place], [place] [id number] Carlota Jin MD 1 [facility], [facility] [address] [place] [phone] 01/05/2025 6:45 EDT Treatment [facility] [place] [address] [place], [place] [id number] Calrota Jin MD 1 [facility], [facility] [address] [place] [phone] 01/08/2025 6:45 EDT Treatment [facility] [place] [address] [place] [address] Carlota Jin MD 1 [facility], [facility] [address] [place] [phone] 01/10/2025 6:45 EDT Treatment [facility] [place] [address] [place] [address] Carlota Jin MD 1 [facility], [facility] [address] [place] [phone] 01/12/2025 6:45 EDT Treatment [facility] [place] [address] [place] [address] Carlota Jin MD 1 [facility], [address] [phone] 01/15/2025 6:45 EDT Treatment [facility] [place] [address] [place] [address] Carlota Jin MD 1 [facility], [address] [phone] 01/17/2025 6:45 EDT Treatment [facility] [place] [address] [place] [address] Carlota Jin MD 1 [facility], [facility] 2 [place] [phone] 01/19/2025 6:45 EDT Treatment [facility] [place] [address] [place], [place] [id number] Carlota Jin MD 1 [facility], [facility] 2 [place] [phone] 01/22/2025 6:45 EDT Treatment [facility] [place] [address] [place], [place] [id number] Carlota Jin MD 1 [facility], [facility] 2 [place] [phone] 01/24/2025 6:45 EDT Treatment [facility] [place] [address] [place], [place] [id number] Carlota Jin MD 1 [facility], [facility] 2 [place] [phone] 01/26/2025 6:45 EDT Treatment [facility] [place] [address] [place], [place] [id number] Carlota Jin MD 1 [facility], [facility] [address] [place] [phone] 01/29/2025 6:45 EDT Treatment [facility] [place] [address] [place], [place] [id number] Carlota Jin MD 1 [facility], [facility] 2 [place] [phone] 01/31/2025 6:45 EDT Treatment [facility] [place] [address] [place], [place] [id number] Carlota Jin MD 1 [facility], [facility] 2 [place] [phone] 02/02/2025 6:45 EDT Treatment [facility] [place] [address] [place], [place] [id number] Carlota Jin MD 1 [facility], [address] [phone] 02/05/2025 6:45 EDT Treatment [facility] [place] [address] [place], [place] [id number] Carlota Jin MD 1 [facility], [address] [phone] 02/07/2025 6:45 EDT Treatment [facility] [place] [address] [place], [place] [id number] Carlota Jin MD 1 [facility], [address] [phone] 02/09/2025 6:45 EDT Treatment [facility] [place] [address] [place], [place] [id number] Carlota Jin MD [address] [phone] 02/12/2025 6:45 EDT Treatment [facility] [place] [address] [place], [place] [id number] Carlota Jin MD [address] [phone] 02/14/2025 6:45 EDT Treatment [facility] [place] [address] [place], [place] [id number] Carlota Jin MD 1 [facility], [address] [phone] 02/16/2025 6:45 EDT Treatment [facility] [address] [place] [address] Carlota Jin MD [address] [phone] 02/19/2025 6:45 EDT Treatment [facility] [place] [address] [place] [address] Carlota Jin MD [address] [phone] 02/21/2025 6:45 EDT Treatment [facility] [address] [place], [place] [id number] Carlota Jin MD [address] [place] [phone] documented as of this encounter Procedures Procedure Name Priority Date/Time Associated Diagnosis Comments HEMODIALYSIS Routine 12/10/2023 6:18 EST ESRD (end stage renal disease) ([facility]) documented in this encounter Visit Diagnoses Diagnosis ESRD (end stage renal disease) ([facility])- Primary End stage renal disease Anemia of chronic renal failure, unspecified CKD stage Hypoalbuminemia Other disorders of plasma protein metabolism Secondary hyperparathyroidism ([facility]) Secondary hyperparathyroidism (of renal origin) documented in this encounter Administered Medications Inactive Administered Medications - up to 3 most recent administrations Medication Order MAR Action Action Date Dose Rate Site calcium carbonate (TUMS) tablet 500 mg (200 mg elemental calcium) 2 Tablet 2 Tablet, oral, ONCE IN DIALYSIS, 1 dose, On Wed12/10/23 at 0645, Routine, DialysisIndications:ESRD (end stage renal disease) ([facility]),Secondary hyperparathyroidism ([facility]) Given 12/10/2023 6:47 EST 2 Tablets epoetin ken (EPOGEN) 20,000 unit/2 mL injection 1,500 Units 1,500 Units, intravenous, ONCE IN DIALYSIS, 1 dose, On Wed12/10/23 at 0645, Routine, DialysisIndications:ESRD (end stage renal disease) ([facility]),Anemia of chronic renal failure, unspecified CKD stage Given 12/10/2023 6:48 EST 1,500 Units heparin injection 9,000 Units 9,000 Units, intravenous, ONCE IN DIALYSIS, 1 dose, On Wed12/10/23 at 0645, Routine, Dialysis, Now x1 bolus 4500 units to be given at the beginning of dialysis 1500 units/hour to be given over the course of dialysis (9000 units total). Stop 1 hour prior to end of treatment. To be administered per Policy [id number].Indications:ESRD (end stage renal disease) ([facility]) Given 12/10/2023 6:48 EST 9,000 Units LiquaCel liquid protein liquid 30 mL 30 mL, oral, ONCE IN DIALYSIS, 1 dose, On Wed12/10/23 at 0645, RoutineIndications:ESRD (end stage renal disease) ([facility]),Hypoalbuminemia Given 12/10/2023 6:48 EST 30 mL documented in this encounter Orders Dialysis Count Last Ordered Date First Orde red Date HEMODIALYSIS 1 12/10/2023 documented in this encounter Care Teams Seam Sewer Relationship Specialty Start Date End Date Ken Greer MD [address] [place] [address] PCP - General 07/07/23 documented as of this encounter
--- OUTSIDE RECORDS SUMMARY | 2024-12-05 12:13 | XMS_ITS | Encounter Summary ---
Author Organization [facility] Address [address] [place] [address] Care Team Providers Care Airline Transport Pilot Name Role Phone Ken Greer MD Primary Care Provider [phone] Encounter Details Date Type Department Care Team (Late st Contact Info) Description 12/06/2023 Documentation Visit [address] [place] [address] Shelley Eden, RD [address] [place] [address] Social History Tobacco Use Types Packs/Day Years [...] [facility] [address] [place], [place] [phone] Carlota Jin MD [address] [place] [address], [facility] [address] [place] [phone] 12/08/2024 6:45 EST Treatment [facility] [address] [place], [place] [phone] Carlota Jin MD [address] [place] [address], [facility] [address] [place] [phone] 12/11/2024 6:45 EST Treatment [facility] [address] [place], [place] [phone] Carlota Jin MD [address] [place] [address], [facility] [address] [place] [phone] 12/13/2024 6:45 EST Treatment [facility] [address] [place], [place] [phone] Carlota Jin MD [facility], [facility] [address] [place] [phone] 12/15/2024 6:45 EST Treatment [facility] [place] [address] [place], [place] [phone] Carlota Jin MD [facility], [facility] [address] [place] [phone] 12/18/2024 6:45 EST Treatment [facility] [place] [address] [place], [place] [id number] Carlota Jin MD 1 [facility], [facility] [address] [place] [phone] 12/20/2024 6:45 EST Treatment [facility] [place] [address] [place], [place] [phone] Carlota Jin MD 1 [facility], [facility] [address] [place] [phone] 12/22/2024 6:45 EST Treatment [facility] [place] [address] [place], [place] [id number] Carlota Jin MD 1 [facility], [facility] [address] [place] [phone] 12/25/2024 6:45 EST Treatment [facility] [place] [address] [place], [place] [phone] Carlota Jin MD 1 [facility], [facility] [address] [place] [phone] 12/27/2024 6:45 EST Treatment [facility] [place] [address] [place], [place] [phone] Carlota Jin MD 1 [facility], [facility] [address] [place] [phone] 12/29/2024 6:45 EST Treatment [facility] [place] [address] [place], [place] [phone] Carlota Jin MD 1 [facility], [facility] [address] [place] [phone] 01/01/2025 6:45 EDT Treatment [facility] [place] [address] [place], [place] [phone] Carlota Jin MD 1 [facility], [facility] [address] [place] [phone] 01/03/2025 6:45 EDT Treatment [facility] [address] [place], [place] [phone] Carlota Jin MD 1 [facility], [facility] [address] [place] [phone] 01/05/2025 6:45 EDT Treatment [facility] [place] [address] [place], [place] [phone] Carlota Jin MD 1 [facility], [facility] [address] [place] [phone] 01/08/2025 6:45 EDT Treatment [facility] [address] [place], [place] [phone] Carlota Jin MD 1 [facility], [facility] [address] [place] [address]-8080401[address]5505 01/10/2025 6:45 EDT Treatment [facility] [place] [address] [place] [address] Carlota Jin MD 1 [facility], [facility] [address] [place] [phone] 01/12/2025 6:45 EDT Treatment [facility] [place] [address] [place], [place] [phone] Carlota Jin MD 1 [facility], [facility] [address] [place] [phone] 01/15/2025 6:45 EDT Treatment [facility] [place] [address] [place], [place] [phone] Carlota Jin MD 1 [facility], [facility] [address] [place] [phone] 01/17/2025 6:45 EDT Treatment [facility] [place] [address] [place], [place] [phone] Carlota Jin MD 1 [facility], [facility] [address] [place] [phone] 01/19/2025 6:45 EDT Treatment [facility] [place] [address] [place], [place] [id number] Carlota Jin MD 1 [facility], [facility] [address] [place] [phone] 01/22/2025 6:45 EDT Treatment [facility] [place] [address] [place], [place] [phone] Carlota Jin MD 1 [facility], [facility] [address] [place] [phone] 01/24/2025 6:45 EDT Treatment [facility] [place] [address] [place], [place] [phone] Carlota Jin MD 1 [facility], [facility] [address] [place] [phone] 01/26/2025 6:45 EDT Treatment [facility] [address] [place], [place] [phone] Carlota Jin MD [address] [place] [address], [address] [phone] 01/29/2025 6:45 EDT Treatment [facility] [address] [place], [place] [phone] Carlota Jin MD [address] [place] [address], [facility] [address] [place] [phone] 01/31/2025 6:45 EDT Treatment [facility] [address] [place], [place] [phone] Carlota Jin MD 1 [facility], [facility] [address] [place] [phone] 02/02/2025 6:45 EDT Treatment [facility] [place] [address] [place], [place] [id number] Carlota Jin MD 1 [facility], [facility] [address] [place] [address]-5477401-5505 02/05/2025 6:45 EDT Treatment [facility] [place] [address] [place], [place] [phone] Carlota Jin MD 1 [facility], [facility] [address] [place] [phone] 02/07/2025 6:45 EDT Treatment [facility] [place] [address] [place], [place] [phone] Carlota Jin MD 1 [facility], [address] [phone] 02/09/2025 6:45 EDT Treatment [facility] [place] [address] [place], [place] [phone] Carlota Jin MD [address] [phone] 02/12/2025 6:45 EDT Treatment [facility] [place] [address] [place], [place] [phone] Carlota Jin MD [address] [phone] 02/14/2025 6:45 EDT Treatment [facility] [place] [address] [place], [place] [phone] Carlota Jin MD 1 [facility], [address] [place] [phone] 02/16/2025 6:45 EDT [facility] [address] [place], [place] [phone] Carlota Jin MD 1 [facility], [facility] [address] [place] [phone] 02/19/2025 6:45 EDT [facility] [address] [place], [place] [phone] Carlota Jin MD 1 [facility], [address] [phone] 02/21/2025 6:45 EDT [facility] [address] [place], [place] [phone] Carlota Jin MD 1 [facility], [address] [phone] documented as of this encounter Visit Diagnoses Not on filedocumented in this encounter Care Teams Airline Transport Pilot Relationship Specialty Start Date End Date [place] [address] PCP - General 07/07/23 documented as of this encounter
--- OUTSIDE RECORDS SUMMARY | 2024-12-05 12:13 | XMS_ITS | Encounter Summary ---
Author Organization [facility] Address [address] [place] [address] Care Team Providers Care Database Administration Associate Name Role Phone Ken Greer MD Primary Care Provider [phone] Kiel Powers Unavailable Unavailable Reason for Visit * Reason Onset Date Comments Kidney Transplant Pre-evaluation 12/03/2023 Encounter Details Date Type Department Care Team (Late st Contact Info) Description 12/03/2023 Telephone [facility] [place] [address] [place] [address] Valery Rice RN [address] [place] [address] Kidney Transplant Pre-evaluation Social History Tobacco Use Types Packs/Day Years [...] * Telephone Encounter - Natali Damon - 01/04/2024 1002 EDT Renal Transplant Initial Phone Prescreen and Episode Creation Gerson agreed this was an appropriate time to discuss. Demographic Information: -Verify demographics -Patient's primary language: Palauan -Preferred Contact Method: cell phone -Send a link to get [facility] Care Team Information (Name of Provider/Office): -Referring Provider: Carlota Jin -Code Number Stamper: he is not sure nephrologists name -Primary Care Provider: Ken Greer Dialysis Information: -Center: [place] -Type: In-Center Hemodialysis (HD) -Days: M, W, morning Support Information: Primary Support Person: Melissa [place], spouse Other Support Team Members: Lata Veraleks, daughter -Will any of your support people need an diplomatic interpreter during your visit?: no -Do we have permission to verbally discuss information with these people? Including: Medical Information/Scheduling/Billing: yes. Medical Information: Have you ever had a transplant before?: -No Are you on the waitlist at any other centers?: -No Recent height and weight?: -5'9 190 Have you ever been diagnosed with any type of cancer?: -No did have a cancerous spot on shoulder that was removed in office Have you ever been told you have HIV?: -no Have you had any cardiac testing (EKG, echocardiogram, cardiac stress test) within the past 12 months?: -Yes: Test(s): EKG, ECHO , Where: [facility], When: Nov 2023 Have you had any imaging (chest x-ray, CT abdomen/pelvis) within the past 12 months?: -Yes: Test(s): CXR, Where: [facility], When: Nov 2023 Health Maintenance: For everyone: Last dentist visit: Has not been in a long time and knows that he does not have good teeth. Advisedthat if he knows he will need dental work to schedule appointment with dentist For anyone over 45 years old: Colonoscopy: (must be colonoscopy, not cologuard) - must be up to date Date: about 3 years ago Where: [facility] Additional information: Will call back to schedule appointments when new template has been released Natali Damon 01/04/2024 10:02 * Telephone Encounter - Natali Damon - 12/21/2023 1059 EST Renal Transplant Initial Phone Prescreen and Episode Creation Gerson did not answer the phone, left a message with details to call back to complete screening. Mukesh GONZALEZ was full - left message with EC Natali Damon 12/21/2023 10:59 * Telephone Encounter - Natali Damon - 12/03/2023 1446 EST Renal Transplant Initial Phone Prescreen and Episode Creation Gerson did not answer the phone, left a message with details to call back to complete screening Natali Damon 12/03/2023 14:46 documented in this encounter Plan of Treatment Upcoming Encounters Date Type Department Care Team (Late st Contact Info) Description 12/06/2024 6:45 EST Treatment [facility] [address] [place] [address] Carlota Jin MD 1 [facility] [address] [place] [phone] 12/08/2024 6:45 EST Treatment [facility] [place] [address] [place], [place] [phone] Carlota Jin MD 1 [facility], [facility] [address] [place] [phone] 12/11/2024 6:45 EST Treatment [facility] [place] [address] [place], [place] [phone] Carlota Jin MD 1 [facility], [facility] [address] [place] [phone] 12/13/2024 6:45 EST Treatment [facility] [place] [address] [place], [place] [address] [phone] Carlota Jin MD 1 [facility], [facility] [address] [place] [phone] 12/15/2024 6:45 EST Treatment [facility] [place] [address] [place] [address] Carltoa Jin MD 1 [facility], [facility] [address] [place] [phone] 12/18/2024 6:45 EST Treatment [facility] [place] [address] [place], [place] [phone] Carlota Jin MD 1 [facility], [facility] [address] [place] [phone] 12/20/2024 6:45 EST Treatment [facility] [place] [address] [place], [place] [address] Carlota Jin MD 1 [facility], [address] [phone] 12/22/2024 6:45 EST Treatment [facility] [place] [address] [place] [address] Carlota Jin MD 1 [facility], [address] [phone] 12/25/2024 6:45 EST Treatment [facility] [place] [address] [place], [place] [phone] Carlota Jin MD 1 [facility], [address] [phone] 12/27/2024 6:45 EST Treatment [facility] [place] [address] [place] [address] Carlota Jin MD 1 [facility], [address] [phone] 12/29/2024 6:45 EST Treatment [facility] [address] [place], [place] [phone] Carlota Jin MD [address] [phone] 01/01/2025 6:45 EDT Treatment [facility] [place] [address] [place], [place] [phone] Carlota Jin MD 1 [facility], [facility] [address] [place] [phone] 01/03/2025 6:45 EDT Treatment [facility] [place] [address] [place], [place] [phone] Carlota Jin MD 1 [facility], [facility] [address] [place] [phone] 01/05/2025 6:45 EDT Treatment [facility] [place] [address] [place], [place] [phone] Carlota Jin MD 1 [facility], [facility] [address] [place] [phone] 01/08/2025 6:45 EDT Treatment [facility] [place] [address] [place], [place] [phone] Carlota Jni MD 1 [facility], [facility] [address] [place] [phone] 01/10/2025 6:45 EDT Treatment [facility] [place] [address] [place], [place] [phone] Carlota Jin MD 1 [facility], [facility] [address] [place] [phone] 01/12/2025 6:45 EDT Treatment [facility] [address] [place], [place] [phone] Carlota Jin MD 1 [facility], [facility] [address] [place] [phone] 01/15/2025 6:45 EDT Treatment [facility] [place] [address] [place], [place] 6676[address] Carlota Jin MD 1 [facility], [facility] 2 [place] [phone] 01/17/2025 6:45 EDT Treatment [facility] [place] [address] [place], [place] [phone] Carlota Jin MD 1 [facility], [facility] [address] [place] [phone] 01/19/2025 6:45 EDT Treatment [facility] [place] [address] [place], [place] [phone] Carlota Jin MD 1 [facility], [address] [phone] 01/22/2025 6:45 EDT Treatment [facility] [place] [address] [place], [place] [phone] Carlota Jin MD 1 [facility], [facility] [address] [place] [phone] 01/24/2025 6:45 EDT Treatment [facility] [place] [address] [place], [place] [phone] Carlota Jin MD 1 [facility], [facility] [address] [place] [phone] 01/26/2025 6:45 EDT Treatment [facility] [place] [address] [place], [place] [phone] Carlota Jin MD 1 [facility], [facility] 2 [place] [phone] 01/29/2025 6:45 EDT Treatment [facility] [place] [address] [place], [place] [address] Carlota Jin MD 1 [facility], [facility] 2 [place] [phone] 01/31/2025 6:45 EDT Treatment [facility] [place] [address] [place], [place] [phone] Carlota Jin MD 1 [facility], [facility] [address] [place] [phone] 02/02/2025 6:45 EDT Treatment [facility] [place] [address] [place], [place] [address] Carlota Jin MD 1 [facility], [facility] 2 [place] [phone] 02/05/2025 6:45 EDT Treatment [facility] [place] [address] [place] [address] Carlota Jin MD 1 [facility], [facility] [address] [place] [phone] 02/07/2025 6:45 EDT Treatment [facility] [place] [address] [place], [place] [address] Carlota Jin MD 1 [facility], [facility] [address] [place] [phone] 02/09/2025 6:45 EDT Treatment [facility] [place] [address] [place], [place] [phone] Carlota Jin MD 1 [facility], [facility] [address] [place] [phone] 02/12/2025 6:45 EDT Treatment [facility] [place] [address] [place], [place] [phone] Carlota Jin MD [address] [place] [address], [address] [phone] 02/14/2025 6:45 EDT Treatment [facility] [place] [address] [place], [place] [phone] Carlota Jin MD [address] [place] [address], [address] [phone] 02/16/2025 6:45 EDT Treatment [facility] [place] [address] [place], [place] [phone] Carlota Jin MD [address] [place] [address], [facility] [address] [place] [phone] 02/19/2025 6:45 EDT Treatment [facility] [place] [address] [place], [place] [phone] Carlota Jin MD 1 [facility], [facility] 2 [place] [phone] 02/21/2025 6:45 EDT Treatment [facility] [place] [address] [place], [place] [phone] Carlota Jin MD 1 [facility], [facility] [address] [place] [address] documented as of this encounter Visit Diagnoses Not on filedocumented in this encounter Additional Health Concerns Infection Onset Date Last Indicated Resolved Time R/O COVID-19 12/20/2023 12/20/2023 12/20/2023 7:14 EST COVID-19 Comment:Collected @ [facility]. 03/12/2024 03/13/2024 04/01/2024 22: 15 EDT R/O COVID-19 05/30/2024 05/30/2024 05/30/2024 20:5 0 EDT documented as of this encounter Care Teams Database Administration Associate Relationship Specialty Start Date End Date Ken Greer MD [address] [place] [address] PCP - General 07/07/23 Kiel Powers Roll Edge Machine Operator Nephrology 05/31/24 documented as of this encounter
--- OUTSIDE RECORDS SUMMARY | 2024-12-05 12:13 | XMS_ITS | Encounter Summary ---
Author Organization [facility] Address [address] [place] [address] Care Team Providers Care Instructor Bridge Name Role Phone Ken Greer MD Primary Care Provider [phone] Encounter Details Date Type Department Care Team (Late st Contact Info) Description 12/10/2023 Documentation Visit [address] [place] [address] Shelley Eden, RD [address] [place] [address] Social History Tobacco Use Types Packs/Day Years [...] EST Treatment [facility] [address] [place], [place] [id number] Carlota Jin MD [address] [place] [address], [facility] [address] [place] [phone] 12/08/2024 6:45 EST Treatment [facility] [address] [place], [place] [id number] Carlota Jin MD [address] [place] [address], [facility] [address] [place] [phone] 12/11/2024 6:45 EST Treatment [facility] [address] [place], [place] [id number] Carlota Jin MD [address] [place] [address], [facility] [address] [place] [phone] 12/13/2024 6:45 EST Treatment [facility] [address] [place], [place] [address] Carlota Jin MD [facility], [facility] [address] [place] [phone] 12/15/2024 6:45 EST Treatment [facility] [place] [address] [place], [place] [address] Carlota Jin MD [facility], [facility] [address] [place] [phone] 12/18/2024 6:45 EST Treatment [facility] [place] [address] [place], [place] [address] Carlota Jin MD 1 [facility], [facility] [address] [place] [phone] 12/20/2024 6:45 EST Treatment [facility] [place] [address] [place], [place] [address] Carlota Jin MD 1 [facility], [facility] [address] [place] [phone] 12/22/2024 6:45 EST Treatment [facility] [place] [address] [place], [place] [address] Carlota Jin MD [facility], [facility] [address] [place] [phone] 12/25/2024 6:45 EST Treatment [facility] [place] [address] [place], [place] [id number] Carlota Jin MD [facility], [facility] [address] [place] [phone] 12/27/2024 6:45 EST Treatment [facility] [place] [address] [place], [place] [address] Carlota Jin MD 1 [facility], [facility] [address] [place] [phone] 12/29/2024 6:45 EST Treatment [facility] [place] [address] [place], [place] [address] Carlota Jin MD 1 [facility], [facility] [address] [place] [phone] 01/01/2025 6:45 EDT Treatment [facility] [place] [address] [place], [place] [address] Carlota Jin MD 1 [facility], [facility] [address] [place] [phone] 01/03/2025 6:45 EDT Treatment [facility] [address] [place], [place] [address] Carlota Jin MD 1 [facility], [facility] [address] [place] [phone] 01/05/2025 6:45 EDT Treatment [facility] [place] [address] [place], [place] [id number] Carlota Jin MD 1 [facility], [facility] [address] [place] [phone] 01/08/2025 6:45 EDT Treatment [facility] [address] [place], [place] [id number] Carlota Jin MD 1 [facility], [facility] [address] [place] [phone] 01/10/2025 6:45 EDT Treatment [facility] [place] [address] [place] [address] Carlota Jin MD [facility], [facility] [address] [place] [phone] 01/12/2025 6:45 EDT Treatment [facility] [place] [address] [place], [place] [address] Carlota Jin MD 1 [facility], [facility] [address] [place] [phone] 01/15/2025 6:45 EDT Treatment [facility] [place] [address] [place], [place] [address] Carlota Jin MD 1 [facility], [facility] [address] [place] [phone] 01/17/2025 6:45 EDT Treatment [facility] [place] [address] [place], [place] [address] Carlota Jin MD 1 [facility], [facility] [address] [place] [phone] 01/19/2025 6:45 EDT Treatment [facility] [place] [address] [place], [place] [address] Carlota Jin MD 1 [facility], [facility] [address] [place] [phone] 01/22/2025 6:45 EDT Treatment [facility] [place] [address] [place], [place] [address] Carlota Jin MD 1 [facility], [facility] [address] [place] [phone] 01/24/2025 6:45 EDT Treatment [facility] [place] [address] [place], [place] [address] Carlota Jin MD 1 [facility], [facility] [address] [place] [phone] 01/26/2025 6:45 EDT Treatment [facility] [address] [place], [place] [address] Carlota Jin MD [address] [place] [address], [address] [phone] 01/29/2025 6:45 EDT Treatment [facility] [address] [place], [place] [address] Carlota Jin MD [address] [place] [address], [facility] [address] [place] [phone] 01/31/2025 6:45 EDT Treatment [facility] [address] [place], [place] [id number] Carlota Jin MD 1 [facility], [facility] [address] [place] [phone] 02/02/2025 6:45 EDT Treatment [facility] [place] [address] [place], [place] [address] Carlota Jin MD 1 [facility], [facility] [address] [place] [phone] 02/05/2025 6:45 EDT Treatment [facility] [place] [address] [place], [place] [address] Carlota Jin MD 1 [facility], [facility] [address] [place] [phone] 02/07/2025 6:45 EDT Treatment [facility] [place] [address] [place], [place] [id number] Carlota Jin MD 1 [facility], [address] [phone] 02/09/2025 6:45 EDT Treatment [facility] [place] [address] [place], [place] [address] Carlota Jin MD [address] [phone] 02/12/2025 6:45 EDT Treatment [facility] [place] [address] [place], [place] [id number] Carlota Jin MD [address] [phone] 02/14/2025 6:45 EDT Treatment [facility] [place] [address] [place], [place] [id number] Carlota Jin MD 1 [facility], [address] [place] [phone] 02/16/2025 6:45 EDT Treatment [facility] [address] [place], [place] [id number] Carlota Jin MD 1 [facility], [facility] [address] [place] [phone] 02/19/2025 6:45 EDT Treatment [facility] [address] [place], [place] [address] Carlota Jin MD 1 [facility], [address] [phone] 02/21/2025 6:45 EDT [facility] [address] [place], [place] [id number] Carlota Jin MD [address] [phone] documented as of this encounter Visit Diagnoses Not on filedocumented in this encounter Additional Health Concerns Infection Onset Date Last Indicated Resolved Time R/O COVID-19 12/20/2023 12/20/2023 12/20/2023 7:14 EST documented as of this encounter Care Teams Instructor Bridge Relationship Specialty Start Date End Date [place] [address] PCP - General 07/07/23 documented as of this encounter
--- OUTSIDE RECORDS SUMMARY | 2024-12-05 12:13 | XMS_ITS | Encounter Summary ---
Author Organization [facility] Address [address] [place] [address] Care Team Providers Care Vtc Technician Name Role Phone Ken Greer MD Primary Care Provider [phone] Encounter Details Date Type Department Care Team (Late st Contact Info) Description 12/06/[address] [facility] [address] [place] [address] Alexa Estrada, [facility] [address] [place] [address] Social History Tobacco Use Types Packs/Day Years [...] in this encounter Progress Notes * Alexa Estrada LICSW - 12/06/2023 0914 EST SHANNON met with pt's , Melissa, and [...] SHANNON suggested that pt get evaluated at [facility], and that she discusses this concern at an appointment. Medicaid [employer] assistance - assistance with medication costs [employer] thiago for car payment assistance Melissa is working on gathering information to complete these applications. SHANNON will continue to assist and remain available. documented in this encounter Plan of Treatment Upcoming Encounters Date Type Department Care Team (Late st Contact Info) Description 12/06/2024 6:45 EST Treatment [facility] [place] [address] [place] [address] Carlota Jin MD 1 [facility], Level [address] [place] [phone] 12/08/2024 6:45 EST Treatment [facility] [place] [address] [place], [place] [address] Carlota Jin MD [facility] [address] [place] [phone] 12/11/2024 6:45 EST Treatment [facility] [place] [address] [place], [place] [id number] Carlota Jin MD 1 [facility], [facility] [address] [place] [phone] 12/13/2024 6:45 EST Treatment [facility] [place] [address] [place] [address] Carlota Jin MD 1 [facility], [facility] [address] [place] [phone] 12/15/2024 6:45 EST Treatment [facility] [place] [address] [place], [place] [id number] Carlota Jin MD 1 [facility], [facility] [address] [place] [phone] 12/18/2024 6:45 EST Treatment [facility] [place] [address] [place], [place] [address] Carlota Jin MD 1 [facility], [facility] [address] [place] [phone] 12/20/2024 6:45 EST Treatment [facility] [place] [address] [place], [place] [address] Carlota Jin MD 1 [facility], [facility] 2 [place] [phone] 12/22/2024 6:45 EST Treatment [facility] [place] [address] [place], [place] [id number] Carlota Jin MD 1 [facility], [facility] 2 [place] [phone] 12/25/2024 6:45 EST Treatment [facility] [place] [address] [place], [place] [address] Calrota Jin MD 1 [facility], [facility] 2 [place] [phone] 12/27/2024 6:45 EST Treatment [facility] [place] [address] [place], [place] [address] Carlota Jin MD 1 [facility], [address] [phone] 12/29/2024 6:45 EST Treatment [facility] [place] [address] [place], [place] [address] Carlota Jin MD 1 [facility], [facility] [address] [place] [phone] 01/01/2025 6:45 EDT Treatment [facility] [place] [address] [place], [place] [address] Carlota Jin MD 1 [facility], [facility] 2 [place] [phone] 01/03/2025 6:45 EDT Treatment [facility] [place] [address] [place], [place] [address] Carlota Jin MD 1 [facility], [facility] 2 [place] [phone] 01/05/2025 6:45 EDT Treatment [facility] [place] [address] [place], [place] [address] Carlota Jin MD 1 [facility], [facility] 2 [place] [phone] 01/08/2025 6:45 EDT Treatment [facility] [place] [address] [place], [place] [address] Carlota Jin MD 1 [facility], [facility] 2 [place] [phone] 01/10/2025 6:45 EDT Treatment [facility] [place] [address] [place] [address] Carlota Jin MD 1 [facility], [facility] 2 [place] [phone] 01/12/2025 6:45 EDT Treatment [facility] [place] [address] [place], [place] [address] Carlota Jin MD 1 [facility], [facility] 2 [place] [phone] 01/15/2025 6:45 EDT Treatment [facility] [place] [address] [place], [place] [id number] Carlota Jin MD 1 [facility], [facility] 2 [place] [phone] 01/17/2025 6:45 EDT Treatment [facility] [place] [address] [place], [place] [address] Carlota Jin MD [address] [place] [address], [address] [phone] 01/19/2025 6:45 EDT Treatment [facility] [place] [address] [place], [place] [id number] Carlota Jin MD [address] [place] [address], [address] [phone] 01/22/2025 6:45 EDT Treatment [facility] [place] [address] [place], [place] [id number] Carlota Jin MD [address] [place] [address], [facility] 2 [place] [phone] 01/24/2025 6:45 EDT Treatment [facility] [address] [place], [place] [address] Carlota Jin MD [address] [place] [address], [facility] 2 [place] [phone] 01/26/2025 6:45 EDT Treatment [facility] [place] [address] [place], [place] [address] Carlota Jin MD 1 [facility], [facility] [address] [place] [phone] 01/29/2025 6:45 EDT Treatment [facility] [place] [address] [place], [place] [address] Carlota Jin MD 1 [facility], [facility] 2 [place] [phone] 01/31/2025 6:45 EDT Treatment [facility] [address] [place], [place] [address] Carlota Jin MD 1 [facility], [facility] 2 [place] [phone] 02/02/2025 6:45 EDT Treatment [facility] [place] [address] [place] [address] Carlota Jin MD 1 [facility], [facility] 2 [place] [phone] 02/05/2025 6:45 EDT Treatment [facility] [address] [place], [place] [address] Carlota Jin MD 1 [facility], [facility] 2 [place] [phone] 02/07/2025 6:45 EDT Treatment [facility] [address] [place], [place] [id number] Carlota Jin MD 1 [facility], [facility] 2 [place] [phone] 02/09/2025 6:45 EDT Treatment [facility] [place] [address] [place], [place] [address] Carlota Jin MD 1 [facility], [facility] 2 [place] [phone] 02/12/2025 6:45 EDT Treatment [facility] [place] [address] [place], [place] [address] Carlota Jin MD 1 [facility], [facility] 2 [place] [phone] 02/14/2025 6:45 EDT Treatment [facility] [place] [address] [place] [address] Carlota Jin MD [address] [place] [address], [facility] 2 [place] [phone] 02/16/2025 6:45 EDT Treatment [facility] [place] [address] [place], [place] [id number] Carlota Jin MD 1 [facility], [facility] 2 [place] [phone] 02/19/2025 6:45 EDT Treatment [facility] [place] [address] [place], [place] [address] Carlota Jin MD 1 [facility], [facility] 2 [place] [phone] 02/21/2025 6:45 EDT Treatment [facility] [place] [address] [place] [address] Carlota Jin MD 1 [facility], [facility] [address] [place] [address] documented as of this encounter Visit Diagnoses Not on filedocumented in this encounter Care Teams Vtc Technician Relationship Specialty Start Date End Date Ken Greer MD [facility] [address] [place], [place] [address] PCP - General 07/07/23 documented as of this encounter
--- OUTSIDE RECORDS SUMMARY | 2024-12-05 12:13 | XMS_ITS | Encounter Summary ---
Author Organization [facility] Address [address] [place] [address] Care Team Providers Care Back Roll Lathe Operator Name Role Phone Ken Greer MD Primary Care Provider [phone] Encounter Details Date Type Department Care Team (Latest Contact Info) Description 12/08/2023 6:45 EST Treatment [facility] [address] [place], [place] [id number] Carlota Jin MD 1 [facility], Level 2 [place] [address] ESRD (end stage renal disease) ([facility]) (Primary Dx); Anemia of chronic renal failure, unspecified CKD stage; Hypoalbuminemia; Secondary hyperparathyroidism ([facility]) Social History Tobacco Use Types [...] - Temperature - - Respiratory Rate 16 12/08/2023 0627 EST Oxygen Saturation - - Inhaled Oxygen Concentration - - Weight 86.7 kg (191 lb 2.2 oz) 12/08/[address] Height - - Body Mass Index 27.43 11/07/2023 0500 EST documented in this encounter [...] Flowsheet Note - Marcela Cox RN - 12/08/2023 1128 EST 12/08/23 1102 Post-Hemodialysis Assessment Total Blood Processed (L) 91.11 Liters On Line Clearance: spKt/V 1.57 spKt/V Dialyzer Clearance Lightly streaked Treatment UFR (ml:kg:hr) 2.58 ml:kg:hr Fluid Removed (L) 1 L Post-Dialysis Scale Weight 85.8 kg (189 lb 2.5 oz) Wheelchair Weight 0 kg (0 lb) Prosthesis Weight 0 kg (0 lb) Post-Treatment Weight (kg) 85.8 Treatment Weight Change (kg) 0.9 kg Day Target Weight (kg) 86.2 Post Sitting/Lying BP 190/89 Post Sitting/Lying pulse 69 Temp 36.6 ??C (97.9 ??F) Temp src Temporal Post access assessment AVF/AFG Hemostasis achieved Yes Note 10 minute hold both sites Orientation Alert and Oriented x3 Yes Time Yes Place Yes Person Yes Cooperative Yes Disoriented No Discharge Ambulation Methods Departs via w/c Wrap up items Patient Response to Treatment Tolerated tx well. Removed 1L UF goal without difficulty. Comments No issues during tx, no concerns voiced post tx. documented in this encounter Plan of Treatment Upcoming Encounters Date Type Department Care Team (Late st Contact Info) Description 12/06/2024 6:45 EST Treatment [facility] [address] [place], [place] [id number] Carlota Jin MD [address] [phone] 12/08/2024 6:45 EST Treatment [facility] [address] [place], [place] [id number] Carlota Jin MD [address] [phone] 12/11/2024 6:45 EST Treatment [facility] [address] [place], [place] [id number] Carlota Jin MD [address] [place] [phone] 12/13/2024 6:45 EST Treatment [facility] [address] [place], [place] [id number] Carlota Jin MD [address] [phone] 12/15/2024 6:45 EST Treatment [facility] [place] [address] [place], [place] [id number] Carlota Jin MD 1 [facility], Level 2 [place] [phone] 12/18/2024 6:45 EST Treatment [facility] [address] [place], [place] [id number] Carlota Jin MD 1 [facility] 2 [place] [phone] 12/20/2024 6:45 EST Treatment [facility] [address] [place], [place] [address] [phone] Carlota Jin MD 1 [facility] 2 [place] [phone] 12/22/2024 6:45 EST Treatment [facility] [address] [place], [place] [id number] Carlota Jin MD 1 [facility], Level 2 [place] [phone] 12/25/2024 6:45 EST [facility] [address] [place], [place] [id number] Carlota Jin MD 1 [facility], Level [address] [place] [phone] 12/27/2024 6:45 EST Treatment [facility] [address] [place], [place] [address] Carlota Jin MD 1 [facility], [address] [phone] 12/29/2024 6:45 EST Treatment [facility] [address] [place] [address] Carlota Jin MD 1 [facility], [address] [phone] 01/01/2025 6:45 EDT Treatment [facility] [address] [place], [place] [id number] Carlota Jin MD 1 [facility], [address] [phone] 01/03/2025 6:45 EDT Treatment [facility] [address] [place], [place] [id number] Carlota Jin MD [address] [phone] 01/05/2025 6:45 EDT Treatment [facility] [address] [place], [place] [id number] Carlota Jin MD [address] [phone] 01/08/2025 6:45 EDT Treatment [facility] [address] [place], [place] [id number] Carlota Jin MD 1 [facility], [facility] 2 [place] [phone] 01/10/2025 6:45 EDT Treatment [facility] [address] [place], [place] [id number] Carlota Jin MD 1 [facility], [facility] 2 [place] [phone] 01/12/2025 6:45 EDT Treatment [facility] [address] [place], [place] [id number] Carlota Jin MD 1 [facility], [facility] 2 [place] [phone] 01/15/2025 6:45 EDT Treatment [facility] [address] [place], [place] [id number] Carlota Jin MD 1 [facility], [address] [phone] 01/17/2025 6:45 EDT Treatment [facility] [address] [place], [place] [id number] Carlota Jin MD 1 [facility], [facility] 2 [place] [phone] 01/19/2025 6:45 EDT Treatment [facility] [address] [place], [place] [id number] Carlota Jin MD 1 [facility], [facility] 2 [place] [phone] 01/22/2025 6:45 EDT Treatment [facility] [address] [place], [place] [id number] Carlota Jin MD 1 [facility], [facility] 2 [place] [phone] 01/24/2025 6:45 EDT Treatment [facility] [address] [place], [place] [id number] Carlota Jin MD 1 [facility], [address] [phone] 01/26/2025 6:45 EDT Treatment [facility] [address] [place], [place] [id number] Carlota Jin MD [address] [facility], [address] [phone] 01/29/2025 6:45 EDT Treatment [facility] [address] [place], [place] [id number] Carlota Jin MD 1 [facility], [address] [phone] 01/31/2025 6:45 EDT Treatment [facility] [address] [place], [place] [id number] Carlota Jin MD 1 [facility], [address] [phone] 02/02/2025 6:45 EDT Treatment [facility] [place] [address] [place], [place] [id number] Carlota Jin MD 1 [facility], Level [address] [place] [phone] 02/05/2025 6:45 EDT Treatment [facility] [place] [address] [place], [place] [address] Carlota Jin MD 1 [facility], [facility] 2 [place] [phone] 02/07/2025 6:45 EDT Treatment [facility] [address] [place], [place] [id number] Carlota Jin MD 1 [facility], [facility] 2 [place] [phone] 02/09/2025 6:45 EDT Treatment [facility] [address] [place] [address] Carlota Jin MD 1 [facility], [facility] 2 [place] [phone] 02/12/2025 6:45 EDT Treatment [facility] [address] [place] [address] Carlota Jin MD 1 [facility], [facility] 2 [place] [phone] 02/14/2025 6:45 EDT Treatment [facility] [address] [place], [place] [id number] Carlota Jin MD 1 [facility], [facility] 2 [place] [phone] 02/16/2025 6:45 EDT Treatment [facility] [place] [address] [place], [place] [id number] Carlota Jin MD 1 [facility], [facility] 2 [place] [phone] 02/19/2025 6:45 EDT Treatment [facility] [place] [address] [place], [place] [id number] Carlota Jin MD 1 [facility], [facility] 2 [place] [phone] 02/21/2025 6:45 EDT Treatment [facility] [address] [place], [place] [id number] Carlota Jin MD 1 [facility], [facility] 2 [place] [phone] documented as of this encounter Procedures Procedure Name Priority Date/Time Associated Diagnosis Comments COMPLETE BLOOD COUNT Routine 12/08/2023 6:39 EST ESRD (end stage renal disease) ([facility]) HEMODIALYSIS Routine 12/08/2023 6:27 EST ESRD (end stage renal disease) ([facility]) documented in this encounter Results * (ABNORMAL) COMPLETE BLOOD COUNT (12/08/2023 6:39 EST) WBC 10.27 4.00 - 10.40 K/cmm 12/08/2023 22:15 [facility] RBC 3.09(L) 4.36 - 5.78 M/cmm 12/08/2023 22:15 [facility] Hemoglobin 9.4(L) 13.8 - 17.3 g/dL 12/08/2023 22:15 [facility] HCT 28.6(L) 39.5 - 50.2 % 12/08/2023 22:15 [facility] MCV 93 81 - 95 fL 12/08/2023 22:15 [facility] MCH 30.4 27.6 - 33.0 pg 12/08/2023 22:15 [facility] MCHC 32.9 32.8 - 36.4 g/dL 12/08/2023 22:15 [facility] RDW-CV 12.6 <14.2 % 12/08/2023 22:15 [facility] RDW-SD 42.8 <46.0 fl 12/08/2023 22:15 [facility] PLT 327 141 - 377 K/cmm 12/08/2023 22:15 [facility] MPV 11.8 9.5 - 12.7 fL 12/08/2023 22:15 [facility] Blood VENOUS BLOOD / Unknown Venipuncture / Unknown 12/08/2023 6:39 EST 12/08/2023 6:39 EST us Skye Gomez NP HEMATOLOGY & PF4 ORDERABLES Final Result Performing Organization Address City/State/[facility] Co de Phone Number [facility] [address] [place] [phone] documented in this encounter Visit Diagnoses Diagnosis ESRD (end stage renal disease) ([facility])- Primary End stage renal disease Anemia of chronic renal failure, unspecified CKD stage Hypoalbuminemia Other disorders of plasma protein metabolism Secondary hyperparathyroidism ([facility]) Secondary hyperparathyroidism (of renal origin) documented in this encounter Administered Medications Inactive Administered Medications - up to 3 most recent administrations Medication Order MAR Action Action Date Dose Rate Site calcium carbonate (TUMS) tablet 500 mg (200 mg elemental calcium) 2 Tablet 2 Tablet, oral, ONCE IN DIALYSIS, 1 dose, On Wed12/08/23 at 0645, Routine, DialysisIndications:ESRD (end stage renal disease) ([facility]),Secondary hyperparathyroidism ([facility]) Given 12/08/2023 6:51 EST 2 Tablets epoetin ken (EPOGEN) 20,000 unit/2 mL injection 1,500 Units 1,500 Units, intravenous, ONCE IN DIALYSIS, 1 dose, On Wed12/08/23 at 0645, Routine, DialysisIndications:ESRD (end stage renal disease) ([facility]),Anemia of chronic renal failure, unspecified CKD stage Given 12/08/2023 6:51 EST 1,500 Units heparin injection 9,000 Units 9,000 Units, intravenous, ONCE IN DIALYSIS, 1 dose, On 12/08/23 at 0645, Routine, Dialysis, Now x1 bolus 4500 units to be given at the beginning of dialysis 1500 units/hour to be given over the course of dialysis (9000 units total). Stop 1 hour prior to end of treatment. To be administered per Policy [id number].Indications:ESRD (end stage renal disease) ([facility]) Given 12/08/2023 6:51 EST 9,000 Units documented in this encounter Orders Medications Ordered That Davide ht Not Have Been Administered Count Last Ordered Date First Ordered Date LiquaCel liquid protein liquid 30 mL 1 11/25 Dialysis Count Last Ordered Date First Orde red Date HEMODIALYSIS 1 12/08/2023 documented in this encounter Care Teams Back Roll Lathe Operator Relationship Specialty Start Date End Date Ken Greer MD [address] [place] [address] PCP - General 07/07/23 documented as of this encounter
--- OUTSIDE RECORDS SUMMARY | 2024-12-05 12:13 | XMS_ITS | Encounter Summary ---
Author Organization [facility] Address [address] [place] [address] Care Team Providers Care Pipe Organ Tuner And Repairer Name Role Phone Ken Greer MD Primary Care Provider [phone] Kiel Powers Unavailable Unavailable Encounter Details Date Type Department Care Team (Late st Contact Info) Description 12/08/2023 Documentation Visit [facility] Home Dialysis Training & Support [address], [place] [phone] Alexa Estrada, [facility] [address] [place] [address] Social History Tobacco Use Types Packs/Day Years [...] 12/06/2024 6:45 EST Treatment [facility] [address] [place], [place] [id number] Carlota Jin MD 1 [facility] 2 [place] [phone] 12/08/2024 6:45 EST Treatment [facility] [address] [place], [place] [id number] Carlota Jin MD 1 [facility], [facility] 2 [place] [phone] 12/11/2024 6:45 EST Treatment [facility] [address] [place], [place] [id number] Carlota Jin MD [address] [place] [address] 2 [place] [phone] 12/13/2024 6:45 EST Treatment [facility] [place] [address] [place], [place] [address] Carlota Jin MD 1 [facility] 2 [place] [phone] 12/15/2024 6:45 EST Treatment [facility] [place] [address] [place], [place] [id number] Carlota Jin MD 1 [facility], [facility] 2 [place] [phone] 12/18/2024 6:45 EST Treatment [facility] [place] [address] [place], [place] [id number] Carlota Jin MD 1 [facility], [facility] 2 [place] [phone] 12/20/2024 6:45 EST Treatment [facility] [place] [address] [place], [place] [id number] Carlota Jin MD 1 [facility], [address] [phone] 12/22/2024 6:45 EST Treatment [facility] [place] [address] [place], [place] [id number] Carlota Jin MD 1 [facility], [facility] 2 [place] [phone] 12/25/2024 6:45 EST Treatment [facility] [place] [address] [place], [place] [id number] Carlota Jin MD 1 [facility], [facility] 2 [place] [phone] 12/27/2024 6:45 EST Treatment [facility] [place] [address] [place], [place] [id number] Carlota Jin MD 1 [facility], [facility] 2 [place] [phone] 12/29/2024 6:45 EST Treatment [facility] [place] [address] [place], [place] [id number] Carlota Jin MD 1 [facility], [address] [phone] 01/01/2025 6:45 EDT Treatment [facility] [place] [address] [place], [place] [id number] Carlota Jin MD 1 [facility], [address] [phone] 01/03/2025 6:45 EDT Treatment [facility] [address] [place], [place] [id number] Carlota Jin MD 1 [facility], [facility] 2 [place] [phone] 01/05/2025 6:45 EDT Treatment [facility] [address] [place], [place] [id number] Carlota Jin MD 1 [facility], [facility] 2 [place] [phone] 01/08/2025 6:45 EDT Treatment [facility] [place] [address] [place], [place] [id number] Carlota Jin MD 1 [facility], [facility] 2 [place] [phone] 01/10/2025 6:45 EDT Treatment [facility] [place] [address] [place], [place] [id number] Carlota Jin MD 1 [facility], [address] [phone] 01/12/2025 6:45 EDT Treatment [facility] [place] [address] [place], [place] [id number] Carlota Jin MD 1 [facility], [address] [phone] 01/15/2025 6:45 EDT Treatment [facility] [place] [address] [place], [place] [id number] Carlota Jin MD 1 [facility], [address] [phone] 01/17/2025 6:45 EDT Treatment [facility] [place] [address] [place], [place] [id number] Carlota Jin MD 1 [facility], [facility] 2 [place] [phone] 01/19/2025 6:45 EDT Treatment [facility] [place] [address] [place], [place] [id number] Carlota Jin MD 1 [facility], Level [address] [place] [phone] 01/22/2025 6:45 EDT Treatment [facility] [place] [address] [place], [place] [address] Carlota Jin MD 1 [facility], [facility] 2 [place] [phone] 01/24/2025 6:45 EDT Treatment [facility] [place] [address] [place], [place] [id number] Carlota Jin MD 1 [facility], [facility] 2 [place] [phone] 01/26/2025 6:45 EDT Treatment [facility] [place] [address] [place], [place] [id number] Carlota Jin MD 1 [facility], [facility] 2 [place] [phone] 01/29/2025 6:45 EDT Treatment [facility] [place] [address] [place] [address] Carlota Jin MD 1 [facility], [facility] 2 [place] [phone] 01/31/2025 6:45 EDT Treatment [facility] [place] [address] [place], [place] [address] Carlota Jin MD 1 [facility], [facility] 2 [place] [phone] 02/02/2025 6:45 EDT Treatment [facility] [place] [address] [place], [place] [id number] Carlota Jin MD 1 [facility], [facility] 2 [place] [phone] 02/05/2025 6:45 EDT Treatment [facility] [place] [address] [place], [place] [id number] Carlota Jin MD 1 [facility], [facility] 2 [place] [phone] 02/07/2025 6:45 EDT Treatment [facility] [place] [address] [place], [place] [id number] Carlota Jin MD [address] [place] [address], [facility] 2 [place] [phone] 02/09/2025 6:45 EDT Treatment [facility] [place] [address] [place], [place] [id number] Carlota Jin MD [address] [place] [address], [facility] 2 [place] [phone] 02/12/2025 6:45 EDT Treatment [facility] [place] [address] [place], [place] [id number] Carlota Jin MD 1 [facility], [facility] 2 [place] [phone] 02/14/2025 6:45 EDT Treatment [facility] [place] [address] [place], [place] [id number] Carlota Jin MD 1 [facility], [facility] 2 [place] [phone] 02/16/2025 6:45 EDT Treatment [facility] [address] [place], [place] [id number] Carlota Jin MD 1 [facility], [address] [phone] 02/19/2025 6:45 EDT Treatment [facility] [address] [place], [place] [id number] Carlota Jin MD [address] [place] [address], [address] [phone] 02/21/2025 6:45 EDT Treatment [facility] [address] [place], [place] [id number] Carlota Jin MD [address] [place] [address], [address] [phone] documented as of this encounter Visit Diagnoses Not on filedocumented in this encounter Additional Health Concerns Infection Onset Date Last Indicated Resolved Time R/O COVID-19 12/20/2023 12/20/2023 12/20/2023 7:14 EST COVID-19 Comment:Collected @ [facility]. 03/12/2024 03/13/2024 04/01/2024 22: 15 EDT R/O COVID-19 05/30/2024 05/30/2024 05/30/2024 20:5 0 EDT documented as of this encounter Care Teams Pipe Organ Tuner And Repairer Relationship Specialty Start Date End Date Ken Greer MD [facility] [place] [address] PCP - General 07/07/23 Kiel Powers Dye Reel Operator Helper Nephrology 05/31/24 documented as of this encounter
--- OUTSIDE RECORDS SUMMARY | 2024-12-05 12:14 | XMS_ITS | Encounter Summary ---
Author Organization [facility] Address [address] [place] [address] Care Team Providers Care Hearing Impaired Teacher Name Role Phone Ken Greer MD Primary Care Provider [phone] Encounter Details Date Type Department Care Team (Latest Contact Info) Description 11/15/2023 6:45 EST Treatment [facility] [address] [place], [place] [id number] Carlota Jin MD 1 [facility], Level 2 [place] [address] ESRD (end stage renal disease) ([facility]) (Primary Dx); Anemia of chronic renal failure, unspecified CKD stage; Hypoalbuminemia; Secondary hyperparathyroidism ([facility]) Social History Tobacco Use Types [...] - - Temperature - - Respiratory Rate 14 11/15/2023 1723 EST Oxygen Saturation - - Inhaled Oxygen Concentration - - Weight 93.8 kg (206 lb 12.7 oz) 11/15/2023 1727 EST Height - - Body Mass Index 29.67 11/07/2023 0500 EST documented in this encounter [...] encounter Miscellaneous Notes * Flowsheet Note - Lukas Dejesus RN - 11/15/20232118 EST 11/15/232116 Post-Hemodialysis Assessment Total Blood Processed (L) 67.04 Liters On Line Clearance: spKt/V 1.06 spKt/V Dialyzer Clearance Lightly streaked Treatment UFR (ml:kg:hr) 6.41 ml:kg:hr Fluid Removed (L) 3 L Post-Dialysis Scale Weight 122.1 kg (269 lb 2.9 oz) Wheelchair Weight 30.1 kg (66 lb 5.7 oz) Post-Treatment Weight (kg) 92 Treatment Weight Change (kg) 1.8 kg Day Target Weight (kg) 91.3 Post Sitting/Lying BP 171/83 Post Sitting/Lying pulse 72 Temp 36.6 ??C (97.9 ??F) Temp src Temporal Post access assessment AVF/AFG Hemostasis achieved Yes Note 10 minute hold both sites Orientation Alert and Oriented x3 Yes Time Yes Place Yes Person Yes Cooperative Yes Disoriented No Discharge Ambulation Methods Departs via w/c Wrap up items Patient Response to Treatment Pt tolerated tx well. Comments Discharged stable. documented in this encounter Plan of Treatment Upcoming Encounters Date Type Department Care Team (Late st Contact Info) Description 12/06/2024 6:45 EST Treatment [facility] Dialysi [facility] [address] [place], [place] [id number] Carlota Jin MD [address] [place] [phone] 12/08/2024 6:45 EST Treatment [facility] [address] [place], [place] [id number] Carlota Jin MD [address] [place] [phone] 12/11/2024 6:45 EST Treatment [facility] [address] [place], [place] [id number] Carlota Jin MD [address] [place] [phone] 12/13/2024 6:45 EST Treatment [facility] Dial[facility] [address] [place], [place] [id number] Carlota Jin MD [address] [place] [phone] 12/15/2024 6:45 EST Treatment [facility] - [place] [address] [place], [place] [id number] Carlota Jin MD 1 [facility], [facility] [place] [phone] 12/18/2024 6:45 EST Treatment [facility] - [place] [address] [place], [place] [id number] Carlota Jin MD 1 [facility], [facility] 2 [place] [phone] 12/20/2024 6:45 EST Treatment [facility] [address] [place], [place] [id number] Carlota Jin MD [address] [place] [address], [facility] [address] [place] [phone] 12/22/2024 6:45 EST Treatment [facility] [address] [place], [place] [id number] Carlota Jin MD 1 [facility], [facility] [address] [place] [phone] 12/25/2024 6:45 EST Treatment [facility]i [place] [address] [place], [place] [id number] Carlota Jin MD 1 [facility], [facility] 2 [place] [phone] 12/27/2024 6:45 EST Treatment [facility] [address] [place], [place] [id number] Carlota Jin MD 1 [facility] [address] [place] [phone] 12/29/2024 6:45 EST Treatment [facility] - [place] [address] [place], [place] [id number] Carlota Jin MD 1 [facility] [place] [phone] 01/01/2025 6:45 EDT Treatment [facility] - [place] [address] [place], [place] [id number] Carlota Jin MD 1 [facility], [facility] 2 [place] [phone] 01/03/2025 6:45 EDT Treatment [facility] - [place] [address] [place], [place] [id number] Carlota Jin MD 1 [facility], [facility] [address] [place] [phone] 01/05/2025 6:45 EDT Treatment [facility] [address] [place], [place] [address] Carlota Jin MD 1 [facility], [facility] 2 [place] [phone] 01/08/2025 6:45 EDT Treatment [facility] [place] [address] [place], [place] [id number] Carlota Jin MD 1 [facility], [facility] 2 [place] [phone] 01/10/2025 6:45 EDT Treatment [facility] - [place] [address] [place], [place] [id number] Carlota Jin MD 1 [facility], [facility] 2 [place] [phone] 01/12/2025 6:45 EDT Treatment [facility] - [place] [address] [place], [place] [id number] Carlota Jin MD 1 [facility], [facility] 2 [place] [phone] 01/15/2025 6:45 EDT Treatment [facility] - [place] [address] [place], [place] [id number] Carlota Jin MD 1 [facility], [facility] 2 [place] [phone] 01/17/2025 6:45 EDT Treatment [facility] - [place] [address] [place], [place] [id number] Carlota Jin MD 1 [facility], [facility] 2 [place] [phone] 01/19/2025 6:45 EDT Treatment [facility] - [place] [address] [place], [place] [id number] Carlota Jin MD 1 [facility], [facility] 2 [place] [phone] 01/22/2025 6:45 EDT Treatment [facility] [place] [address] [place], [place] [address] Carlota Jin MD 1 [facility], [facility] 2 [place] [phone] 01/24/2025 6:45 EDT Treatment [facility] - [place] [address] [place] [address] Carl[address] Jin MD 1 [facility], [facility] 2 [place] [phone] 01/26/2025 6:45 EDT Treatment [facility] [place] [address] [place], [place] [id number] Carlota Jin MD 1 [facility], [address] [phone] 01/29/2025 6:45 EDT Treatment [facility] [place] [address] [place], [place] [id number] Carlota Jin MD 1 [facility], [address] [phone] 01/31/2025 6:45 EDT Treatment [facility] [place] [address] [place], [place] [id number] Carlota Jin MD 1 [facility], [facility] 2 [place] [phone] 02/02/2025 6:45 EDT Treatment [facility] [place] [address] [place], [place] [id number] Carlota Jin MD 1 [facility], [facility] 2 [place] [phone] 02/05/2025 6:45 EDT Treatment [facility] - [place] [address] [place], [place] [id number] Carlota Jin MD 1 [facility], [facility] 2 [place] [phone] 02/07/2025 6:45 EDT Treatment [facility] - [place] [address] [place], [place] [id number] Carlota Jin MD 1 [facility], [facility] 2 [place] [phone] 02/09/2025 6:45 EDT Treatment [facility] [place] [address] [place], [place] [id number] Carlota Jin MD [address] [place] [address], [address] [phone] 02/12/2025 6:45 EDT Treatment [facility] [place] [address] [place], [place] [id number] Carlota Jin MD [address] [place] [address], [facility] [address] [place] [phone] 02/14/2025 6:45 EDT Treatment [facility] - [place] [address] [place], [place] [id number] Carlota Jin MD 1 [facility], [facility] 2 [place] [phone] 02/16/2025 6:45 EDT Treatment [facility] - [place] [address] [place], [place] [id number] Carlota Jin MD 1 [facility], [address] [phone] 02/19/2025 6:45 EDT Treatment [facility] Dial[facility] [address] [place], [place] [id number] Carlota Jin MD 1 [facility], [facility] 2 [place] [phone] 02/21/2025 6:45 EDT Treatment [facility]ial[facility] [address] [place], [place] [phone] Carlota Jin MD [address] [place] [phone] documented as of this encounter Procedures Procedure Name Priority Date/Time Associated Diagnosis Comments HEMODIALYSIS Routine 11/15/2023 17:23 EST ESRD (end stage renal disease) ([facility]) documented in this encounter Visit [...] oral, ONCE IN DIALYSIS, 1 dose, On Wed11/15/23 at 1745, Routine, DialysisIndications:ESRD (end stage renal disease) ([facility]),Secondary hyperparathyroidism ([facility]) Given 11/15/2023 17:53 EST 2 Tablets epoetin ken (EPOGEN) 20,000 unit/2 mL injection 1,000 Units 1,000 Units, intravenous, ONCE IN DIALYSIS, 1 dose, On Wed11/15/23 at 1745, Routine, DialysisIndications:ESRD (end stage renal disease) ([facility]),Anemia of chronic renal failure, unspecified CKD stage Given 11/15/2023 17:53 EST 1,000 Units heparin injection 9,000 Units 9,000 Units, intravenous, ONCE IN DIALYSIS, 1 dose, On 11/15/23 at 1745, Routine, Dialysis, Now x1 bolus 4500 units to be given at the beginning of dialysis 1500 units/hour to be given over the course of dialysis (9000 units total). Stop 1 hour prior to end of treatment. To be administered per Policy [id number].Indications:ESRD (end stage renal disease) ([facility]) Given 11/15/2023 17:24 EST 9,000 Units LiquaCel liquid protein liquid 30 mL 30 mL, oral, ONCE IN DIALYSIS, 1 dose, On Wed11/15/23 at 1745, RoutineIndications:ESRD (end stage renal disease) ([facility]),Hypoalbuminemia Given 11/15/2023 17:53 EST 30 mL documented in this encounter Orders Dialysis Count Last Ordered Date First Orde red Date HEMODIALYSIS 1 11/15/2023 documented in this encounter Additional Health Concerns Infection Onset Date Last Indicated Resolved Time COVID-19 Comment:COVID+ 11/05/23 @[place] (see scan) 11/08/2023 11/08/2023 11/17/2023 13:58 EST documented as of this encounter Care Teams Hearing Impaired Teacher Relationship Specialty Start Date End Date Ken Greer MD [address] [place] [address] PCP - General 07/07/23 documented as of this encounter
--- OUTSIDE RECORDS SUMMARY | 2024-12-05 12:14 | XMS_ITS | Encounter Summary ---
Author Organization [facility] Address [address] [place] [address] Care Team Providers Care Building Maintenance Mechanic Name Role Phone Ken Greer MD Primary Care Provider [phone] Kiel Powers Unavailable Unavailable Encounter Details Date Type Department Care Team (Late st Contact Info) Description 11/22/2023 Documentation Visit [facility] [address] [place] [address] Alexa Estrada, [facility] [address] [place] [address] Social History Tobacco Use Types Packs/Day Years [...] Description 12/06/2024 6:45 EST Treatment [facility] Dialysi [facility] [address] [place], [place] [id number] Carlota Jin MD 1 [facility] 2 [place] [phone] 12/08/2024 6:45 EST Treatment [facility] Dialys[facility] [address] [place], [place] [id number] Carlota Jin MD [facility], [facility] 2 [place] [phone] 12/11/2024 6:45 EST Treatment [facility] Dialys[facility] [address] [place], [place] [phone] Carlota Jin MD [address] [place] [address] 2 [place] [phone] 12/13/2024 6:45 EST Treatment [facility] [place] - [place] [address] [place], [place] [address] Carlota Jin MD 1 [facility], [facility] 2 [place] [phone] 12/15/2024 6:45 EST Treatment [facility] [place] - [place] [address] [place], [place] [id number] Carlota Jin MD 1 [facility], [facility] 2 [place] [phone] 12/18/2024 6:45 EST Treatment [facility] [place] - [place] [address] [place], [place] [id number] Carlota Jin MD 1 [facility], [facility] 2 [place] [phone] 12/20/2024 6:45 EST Treatment [facility] - [place] [address] [place], [place] [id number] Carlota Jin MD 1 [facility], [address] [phone] 12/22/2024 6:45 EST Treatment [facility] [place] - [place] [address] [place], [place] [id number] Carlota Jin MD 1 [facility], [facility] 2 [place] [phone] 12/25/2024 6:45 EST Treatment [facility] [place]i [place] [address] [place], [place] [id number] Carlota Jin MD 1 [facility], [facility] 2 [place] [phone] 12/27/2024 6:45 EST Treatment [facility] - [place] [address] [place], [place] [id number] Carlota Jin MD 1 [facility], [facility] 2 [place] [phone] 12/29/2024 6:45 EST Treatment [facility] - [place] [address] [place], [place] [id number] Carlota Jin MD 1 [facility], [address] [phone] 01/01/2025 6:45 EDT Treatment [facility] [place] - [place] [address] [place], [place] [id number] Carlota Jin MD 1 [facility], [address] [phone] 01/03/2025 6:45 EDT Treatment [facility] [address] [place], [place] [id number] Carlota Jin MD 1 [facility], [facility] 2 [place] [phone] 01/05/2025 6:45 EDT Treatment [facility] Dialysi [facility] [address] [place], [place] [id number] Carlota Jin MD 1 [facility], [facility] 2 [place] [phone] 01/08/2025 6:45 EDT Treatment [facility]i - [place] [address] [place], [place] [id number] Carlota Jin MD 1 [facility], [facility] 2 [place] [phone] 01/10/2025 6:45 EDT Treatment [facility]i - [place] [address] [place], [place] [id number] Carlota Jin MD 1 [facility], [address] [phone] 01/12/2025 6:45 EDT Treatment [facility] - [place] [address] [place], [place] [id number] Carlota Jin MD 1 [facility], [address] [phone] 01/15/2025 6:45 EDT Treatment [facility] - [place] [address] [place], [place] [id number] Carlota Jin MD 1 [facility], [address] [phone] 01/17/2025 6:45 EDT Treatment [facility] - [place] [address] [place], [place] [id number] Carlota Jin MD 1 [facility], [facility] 2 [place] [phone] 01/19/2025 6:45 EDT Treatment [facility] - [place] [address] [place], [place] [id number] Carlota Jin MD 1 [facility], Level [address] [place] [phone] 01/22/2025 6:45 EDT Treatment [facility] [place] - [place] [address] [place], [place] [address] Carlota Jin MD 1 [facility], [facility] 2 [place] [phone] 01/24/2025 6:45 EDT Treatment [facility] - [place] [address] [place], [place] [id number] Carlota Jin MD 1 [facility], [facility] 2 [place] [phone] 01/26/2025 6:45 EDT Treatment [facility] - [place] [address] [place], [place] [address] Carlota Jin MD 1 [facility], [facility] 2 [place] [phone] 01/29/2025 6:45 EDT Treatment [facility] - [place] [address] [place] [address] Carlota Jin MD 1 [facility], [facility] 2 [place] [phone] 01/31/2025 6:45 EDT Treatment [facility] - [place] [address] [place], [place] [address] Carlota Jin MD 1 [facility], [facility] 2 [place] [phone] 02/02/2025 6:45 EDT Treatment [facility] - [place] [address] [place], [place] [id number] Carlota Jin MD 1 [facility], [facility] 2 [place] [phone] 02/05/2025 6:45 EDT Treatment [facility] - [place] [address] [place], [place] [id number] Carlota Jin MD 1 [facility], [facility] 2 [place] [phone] 02/07/2025 6:45 EDT Treatment [facility] [place] - [place] [address] [place], [place] [id number] Carlota Jin MD [address] [place] [address], [facility] 2 [place] [phone] 02/09/2025 6:45 EDT Treatment [facility] [place] - [place] [address] [place], [place] [id number] Carlota Jin MD [address] [place] [address], [facility] 2 [place] [phone] 02/12/2025 6:45 EDT Treatment [facility] [place] - [place] [address] [place], [place] [id number] Carlota Jin MD 1 [facility], [facility] 2 [place] [phone] 02/14/2025 6:45 EDT Treatment [facility] [place] - [place] [address] [place], [place] [id number] Carlota Jin MD 1 [facility], [facility] 2 [place] [phone] 02/16/2025 6:45 EDT Treatment [facility] [address] [place], [place] [id number] Carlota Jin MD 1 [facility], [address] [phone] 02/19/2025 6:45 EDT Treatment [facility] [address] [place], [place] [id number] Carlota Jin MD [address] [place] [address], [address] [phone] 02/21/2025 6:45 EDT Treatment [facility] [address] [place], [place] [id number] Carlota Jin MD [address] [place] [address], [address] [phone] documented as of this encounter Visit Diagnoses Not on filedocumented in this encounter Additional Health Concerns Infection Onset Date Last Indicated Resolved Time R/O COVID-19 12/20/2023 12/20/2023 12/20/2023 7:14 EST COVID-19 Comment:Collected @ [facility]. 03/12/2024 03/13/2024 04/01/2024 22: 15 EDT R/O COVID-19 05/30/2024 05/30/2024 05/30/2024 20:5 0 EDT documented as of this encounter Care Teams Building Maintenance Mechanic Relationship Specialty Start Date End Date Ken Greer MD [facility] [place] [address] PCP - General 07/07/23 Kiel Powers Applied Research Director Nephrology 05/31/24 documented as of this encounter
--- OUTSIDE RECORDS SUMMARY | 2024-12-05 12:14 | XMS_ITS | Encounter Summary ---
Author Organization [facility] Address [address] [place] [address] Care Team Providers Care Tree Trimming Supervisor Name Role Phone Ken Greer MD Primary Care Provider [phone] Encounter Details Date Type Department Care Team (Late st Contact Info) Description 11/15/2023 Documentation Visit [address] [place], [place] [address] Marcela Cox, VIDYA Social History Tobacco Use [...] Progress Notes * Marcela Cox RN - 11/15/2023 1016 EST 11/15/23 10:17 [facility] MEDICATION RECONCILIATION Medication review of home medications (prescriptions, duyg-qku-rvfdjzu, herbals, vitamin/mineral/dietary (nutritional) supplements, medical marijuana, and recreational) was completed through: Patient hospital discharge medication reconciliation list reviewed with patient/caregiver. Current Medications Current Outpatient Medications Medication amLODIPine (NORVASC) 10 mg tablet amoxicillin-clavulanate (AUGMENTIN) 500-125 mg per tablet atorvastatin (LIPITOR) 40 mg tablet calcium carbonate (TUMS) 200 mg calcium (500 mg) tablet,chewable carvediloL (COREG) 12.5 mg tablet cholecalciferol, Vitamin D3, 50 mcg (2,000 unit) tablet famotidine (PEPCID) 40 mg tablet FLOVENT HFA 110 mcg/actuation inhaler LEVEMIR FLEXPEN 100 unit/mL (3 mL) injectable pen MULTIVITAMIN ORAL nicotine (NICODERM CQ) 21 mg/24 hr patch olmesartan (BENICAR) 5 mg tablet pregabalin (LYRICA) 150 mg capsule sevelamer carbonate (RENVELA) 800 mg tablet No current facility-administered medications for this visit. Marcela Cox RN documented in this encounter Plan of Treatment Upcoming Encounters Date Type Department Care Team (Late st Contact Info) Description 12/06/2024 6:45 EST Treatment [facility] [place] [address] [place], [place] [id number] Carlota Jin MD 1 [facility], [facility] 2 [place] [phone] 12/08/2024 6:45 EST Treatment [facility] [place] [address] [place], [place] [phone] Carlota Jin MD 1 [facility], [facility] 2 [place] [phone] 12/11/2024 6:45 EST Treatment [facility] [place] [address] [place], [place] [phone] Carlota Jin MD 1 [facility], [facility] 2 [place] [phone] 12/13/2024 6:45 EST Treatment [facility] [place] [address] [place], [place] [id number] Carlota Jin MD 1 [facility], [facility] 2 [place] [phone] 12/15/2024 6:45 EST Treatment [facility] [place] [address] [place], [place] [id number] Carlota Jin MD 1 [facility], [facility] 2 [place] [phone] 12/18/2024 6:45 EST Treatment [facility] [place] [address] [place], [place] [id number] Carlota Jin MD 1 [facility], Level [address] [place] [phone] 12/20/2024 6:45 EST Treatment [facility] [place] [address] [place], [place] [address] Carlota Jin MD 1 [facility], [facility] 2 [place] [phone] 12/22/2024 6:45 EST Treatment [facility] [place] [address] [place], [place] [id number] Carlota Jin MD 1 [facility], [facility] 2 [place] [phone] 12/25/2024 6:45 EST Treatment [facility] [place] [address] [place], [place] [id number] Carlota Jin MD 1 [facility], [facility] [address] [place] [phone] 12/27/2024 6:45 EST Treatment [facility] [place] [address] [place], [place] [id number] Carlota Jin MD 1 [facility], [facility] 2 [place] [phone] 12/29/2024 6:45 EST Treatment [facility] [place] [address] [place], [place] [id number] Carlota Jin MD 1 [facility], [facility] [address] [place] [phone] 01/01/2025 6:45 EDT Treatment [facility] [place] [address] [place], [place] [id number] Carlota Jin MD 1 [facility], [facility] 2 [place] [phone] 01/03/2025 6:45 EDT Treatment [facility] [place] [address] [place], [place] [id number] Carlota Jin MD 1 [facility], [address] [phone] 01/05/2025 6:45 EDT Treatment [facility] [place] [address] [place], [place] [phone] Carlota Jin MD 1 [facility], [address] [phone] 01/08/2025 6:45 EDT Treatment [facility] [place] [address] [place], [place] [phone] Carlota Jin MD 1 [facility], [facility] 2 [place] [phone] 01/10/2025 6:45 EDT Treatment [facility] [place] [address] [place], [place] [phone] Carlota Jin MD 1 [facility], [facility] 2 [place] [phone] 01/12/2025 6:45 EDT Treatment [facility] [place] [address] [place], [place] [phone] Carlota Jin MD 1 [facility], [facility] 2 [place] [phone] 01/15/2025 6:45 EDT Treatment [facility] [place] [address] [place], [place] [phone] Carlota Jin MD 1 [facility], [facility] 2 [place] [phone] 01/17/2025 6:45 EDT Treatment [facility] [place] [address] [place] [address] Carlota Jin MD 1 [facility], [facility] 2 [place] [phone] 01/19/2025 6:45 EDT Treatment [facility] [place] [address] [place] [address] Carlota Jin MD 1 [facility], [facility] 2 [place] [phone] 01/22/2025 6:45 EDT Treatment [facility] [place] [address] [place] [address] Carlota Jin MD 1 [facility], [facility] 2 [place] [phone] 01/24/2025 6:45 EDT Treatment [facility] [place] [address] [place], [place] [phone] Carlota Jin MD 1 [facility], [facility] 2 [place] [phone] 01/26/2025 6:45 EDT Treatment [facility] [place] [address] [place], [place] [address] Carlota Jin MD 1 [facility], [facility] 2 [place] [phone] 01/29/2025 6:45 EDT Treatment [facility] [place] [address] [place], [place] [phone] Carlota Jin MD 1 [facility], [facility] 2 [place] [phone] 01/31/2025 6:45 EDT Treatment [facility] [place] [address] [place] [address] Carlota Jin MD 1 [facility], [address] [phone] 02/02/2025 6:45 EDT Treatment [facility] [place] [address] [place], [place] [phone] Carlota Jin MD 1 [facility], [facility] 2 [place] [phone] 02/05/2025 6:45 EDT Treatment [facility] [place] [address] [place], [place] [phone] Carlota Jin MD 1 [facility], [facility] 2 [place] [phone] 02/07/2025 6:45 EDT Treatment [facility] [place] [address] [place], [place] [phone] Carlota Jin MD 1 [facility], [facility] 2 [place] [phone] 02/09/2025 6:45 EDT Treatment [facility] [place] [address] [place] [address] Carlota Jin MD 1 [facility], [facility] 2 [place] [phone] 02/12/2025 6:45 EDT Treatment [facility] [place] [address] [place] [address] Carlota Jin MD 1 [facility], [facility] 2 [place] [phone] 02/14/2025 6:45 EDT Treatment [facility] [place] [address] [place], [place] [phone] Carlota Jin MD 1 [facility], [facility] 2 [place] [phone] 02/16/2025 6:45 EDT Treatment [facility] [place] [address] [place] [address] Carlota Jin MD 1 [facility], [facility] 2 [place] [phone] 02/19/2025 6:45 EDT Treatment [facility] [place] [address] [place], [place] [phone] Carlota Jin MD 1 [facility], [facility] 2 [place] [phone] 02/21/2025 6:45 EDT Treatment [facility] [address] [place] [address] Carlota Jin MD 1 [facility], Level [address] [place] [phone] documented as of this encounter Visit Diagnoses Not on filedocumented in this encounter Additional Health Concerns Infection Onset Date Last Indicated Resolved Time COVID-19 Comment:COVID+ 11/05/23 @[facility] (see scan) 11/08/2023 11/08/2023 11/17/2023 13:58 EST documented as of this encounter Care Teams Tree Trimming Supervisor Relationship Specialty Start Date End Date Ken Greer MD [address] [place] [address] PCP - General 07/07/23 documented as of this encounter
--- OUTSIDE RECORDS SUMMARY | 2024-12-05 12:14 | XMS_ITS | Encounter Summary ---
Author Organization [facility] Address [address] [place] [address] Care Team Providers Care Pick Up Truck Driver Name Role Phone Ken Greer MD Primary Care Provider [phone] Encounter Details Date Type Department Care Team (Latest Contact Info) Description 12/03/2023 6:45 EST Treatment [facility] [address] [place], [place] [phone] Carlota Jin MD 1 [facility], Level [address] [place] [address] ESRD (end stage renal disease) ([facility]) (Primary Dx); Anemia of chronic renal failure, unspecified CKD stage; Hypoalbuminemia; Secondary hyperparathyroidism ([facility]) Social History Tobacco Use Types [...] - Temperature - - Respiratory Rate 16 12/03/2023 0626 EST Oxygen Saturation - - Inhaled Oxygen Concentration - - Weight 88.2 kg (194 lb 7.1 oz) 12/03/[address] Height - - Body [...] Flowsheet Note - Marcela Cox RN - 12/03/2023 1344 EST 12/03/23 1119 Post-Hemodialysis Assessment Total Blood Processed (L) 92.01 Liters On Line Clearance: spKt/V 1.49 spKt/V Dialyzer Clearance Lightly streaked Treatment UFR (ml:kg:hr) 7.93 ml:kg:hr Final Critline Profile (%/hr) -1.23 Final Profile Profile A Critline refill Negative (27.7/27.7) Fluid Removed (L) 2.5 L Post-Dialysis Scale Weight 85.4 kg (188 lb 4.4 oz) Wheelchair Weight 0 kg (0 lb) Prosthesis Weight 0 kg (0 lb) Post-Treatment Weight (kg) 85.4 Treatment Weight Change (kg) 2.8 kg Day Target Weight (kg) 86.2 Post Sitting/Lying BP 147/82 Post Sitting/Lying pulse 71 Temp 35.3 ??C (95.5 ??F) Post access assessment AVF/AFG Hemostasis achieved Yes Note 10 minute hold, rebled both sites. Fresh bandages applied. Orientation Alert and Oriented x3 Yes Time [...] [facility] [address] [place], [place] [phone] Carlota Jin MD [address] [place] [address], [facility] 2 [place] [phone] 12/08/2024 6:45 EST Treatment [facility] [address] [place], [place] [phone] Carlota Jin MD [address] [place] [address], [facility] [address] [place] [phone] 12/11/2024 6:45 EST Treatment [facility] [address] [place], [place] [id number] Carlota Jin MD [address] [place] [address], [facility] 2 [place] [phone] 12/13/2024 6:45 EST Treatment [facility] [place] [address] [place], [place] [id number] Carlota Jin MD 1 [facility], [facility] 2 [place] [phone] 12/15/2024 6:45 EST Treatment [facility] [place] [address] [place] [address] Carlota Jin MD 1 [facility], [facility] 2 [place] [phone] 12/18/2024 6:45 EST Treatment [facility] [place] [address] [place], [place] [phone] Carlota Jin MD 1 [facility], [address] [phone] 12/20/2024 6:45 EST Treatment [facility] [place] [address] [place], [place] [id number] Carlota Jin MD 1 [facility], [address] [phone] 12/22/2024 6:45 EST Treatment [facility] [place] [address] [place], [place] [id number] Carlota Jin MD 1 [facility], [address] [phone] 12/25/2024 6:45 EST Treatment [facility] [place] [address] [place], [place] [id number] Carlota Jin MD 1 [facility], [facility] 2 [place] [phone] 12/27/2024 6:45 EST Treatment [facility] [place] [address] [place], [place] [id number] Carlota Jin MD 1 [facility], [facility] 2 [place] [phone] 12/29/2024 6:45 EST Treatment [facility] [place] [address] [place], [place] [id number] Carlota Jin MD 1 [facility], [facility] 2 [place] [phone] 01/01/2025 6:45 EDT Treatment [facility] [address] [place] [address] Carlota Jin MD 1 [facility], [facility] 2 [place] [phone] 01/03/2025 6:45 EDT Treatment [facility] [address] [place], [place] [phone] Carlota Jin MD 1 [facility], [facility] 2 [place] [phone] 01/05/2025 6:45 EDT Treatment [facility] [address] [place], [place] [phone] Carlota Jin MD 1 [facility], [facility] 2 [place] [phone] 01/08/2025 6:45 EDT Treatment [facility] [place] [address] [place], [place] [phone] Carlota Jin MD 1 [facility], [facility] 2 [place] [phone] 01/10/2025 6:45 EDT Treatment [facility] [place] [address] [place], [place] [id number] Carlota Jin MD 1 [facility], [facility] 2 [place] [phone] 01/12/2025 6:45 EDT Treatment [facility] [place] [address] [place], [place] [phone] Carlota Jin MD 1 [facility], [address] [phone] 01/15/2025 6:45 EDT Treatment [facility] [place] [address] [place], [place] [phone] Carlota Jin MD [address] [phone] 01/17/2025 6:45 EDT Treatment [facility] [place] [address] [place], [place] [id number] Carlota Jin MD [address] [phone] 01/19/2025 6:45 EDT Treatment [facility] [place] [address] [place], [place] [id number] Carlota Jin MD 1 [facility], [address] [place] [phone] 01/22/2025 6:45 EDT Treatment [facility] [place] [address] [place], [place] [id number] Carlota Jin MD 1 [facility], [facility] 2 [place] [phone] 01/24/2025 6:45 EDT Treatment [facility] [place] [address] [place], [place] [phone] Carlota Jin MD 1 [facility], [facility] 2 [place] [phone] 01/26/2025 6:45 EDT Treatment [facility] [place] [address] [place], [place] [phone] Carlota Jin MD 1 [facility], [facility] 2 [place] [phone] 01/29/2025 6:45 EDT Treatment [facility] [place] [address] [place] [address] Carlota Jin MD 1 [facility], [facility] 2 [place] [phone] 01/31/2025 6:45 EDT Treatment [facility] [address] [place], [place] [phone] Carlota Jin MD 1 [facility], [facility] 2 [place] [phone] 02/02/2025 6:45 EDT Treatment [facility] [place] [address] [place], [place] [id number] Carlota Jin MD 1 [facility], [facility] [address] [place] [phone] 02/05/2025 6:45 EDT Treatment [facility] [place] [address] [place], [place] [id number] Carlota Jin MD 1 [facility], [facility] [address] [place] [phone] 02/07/2025 6:45 EDT Treatment [facility] [place] [address] [place], [place] [phone] Carlota Jin MD 1 [facility], [address] [phone] 02/09/2025 6:45 EDT Treatment [facility] [place] [address] [place], [place] [id number] Carlota Jin MD 1 [facility], [facility] 2 [place] [phone] 02/12/2025 6:45 EDT Treatment [facility] [place] [address] [place], [place] [id number] Carlota Jin MD 1 [facility], [facility] 2 [place] [phone] 02/14/2025 6:45 EDT Treatment [facility] [place] [address] [place], [place] [phone] Carlota Jin MD 1 [facility], [facility] 2 [place] [phone] 02/16/2025 6:45 EDT Treatment [facility] [place] [address] [place] [phone] Carlota Jin MD 1 [facility], [facility] 2 [place] [phone] 02/19/2025 6:45 EDT Treatment [facility] [place] [address] [place], [place] [phone] Carlota Jin MD 1 [facility], [facility] 2 [place] [phone] 02/21/2025 6:45 EDT Treatment [facility] [place] [address] [place] [phone] Carlota Jin MD 1 [facility], [address] [phone] documented as of this encounter Procedures Procedure Name Priority Date/Time Associated Diagnosis Comments POSTDIALYSIS BUN WITH URR CALCULATION Routine 12/03/2023 11:25 EST BUN, PREDIALYSIS Routine 12/03/2023 6:34 EST HEMODIALYSIS Routine 12/03/2023 6:26 EST ESRD (end stage renal disease) ([facility]) documented in this encounter Results * (ABNORMAL) POSTDIALYSIS BUN WITH URR CALCULATION (12/03/2023 11:25 EST) BUN, Postdialysis 16 10 - 26 mg/dL 12/03/2023 22:22 EST [facility] Urea Reduction Rate 68.6 Not Established % 12/03/2023 22:22 EST [facility] Comment: NOTE: Reference range not established for Urea Reduction Rate. BUN 51(H) 10 - 26 mg/dL 12/03/2023 22:22 EST [facility] Blood VENOUS BLOOD / Unknown Venipuncture / Unknown 12/03/2023 11:25 EST 12/03/2023 11:25 EST Carlota Jin MD CHEMISTRY & BLOOD GAS ORD ERABLES Final Result Performing Organization Address City/[facility]/ZIP Co de Phone Number [facility] [address] [place] [address] * (ABNORMAL) BUN, PREDIALYSIS (12/03/2023 6:34 EST) BUN, Predialysis 51(H) 10 - 26 mg/dL 12/03/2023 22:14 EST [facility] Blood VENOUS BLOOD / Unknown Venipuncture / Unknown 12/03/2023 6:34 EST 12/03/2023 6:34 EST Carlota Jin MD CHEMISTRY & BLOOD GAS ORD ERABLES Final Result Performing Organization Address City/[facility] Co de Phone Number [facility] [address] [place] [address] documented in this encounter Visit Diagnoses Diagnosis ESRD (end stage renal disease) ([facility])- Primary End stage renal disease Anemia of chronic renal failure, unspecified CKD stage Hypoalbuminemia Other disorders of plasma protein metabolism Secondary hyperparathyroidism ([facility]) Secondary hyperparathyroidism (of renal origin) documented in this encounter Administered Medications Inactive Administered Medications - up to 3 most recent administrations Medication Order MAR Action Action Date Dose Rate Site calcium carbonate (TUMS) tablet 500 mg (200 mg elemental calcium) 2 Tablet 2 Tablet, oral, ONCE IN DIALYSIS, 1 dose, On Wed12/03/23 at 0645, Routine, DialysisIndications:ESRD (end stage renal disease) ([facility]),Secondary hyperparathyroidism ([facility]) Given 12/03/2023 6:52 EST 2 Tablets epoetin ken (EPOGEN) 20,000 unit/2 mL injection 1,000 Units 1,000 Units, intravenous, ONCE IN DIALYSIS, 1 dose, On Wed12/03/23 at 0645, Routine, DialysisIndications:ESRD (end stage renal disease) ([facility]),Anemia of chronic renal failure, unspecified CKD stage Given 12/03/2023 6:51 EST 1,000 Units heparin injection 9,000 Units 9,000 Units, intravenous, ONCE IN DIALYSIS, 1 dose, On Wed12/03/23 at 0645, Routine, Dialysis, Now x1 bolus 4500 units to be given at the beginning of dialysis 1500 units/hour to be given over the course of dialysis (9000 units total). Stop 1 hour prior to end of treatment. To be administered per Policy [id number].Indications:ESRD (end stage renal disease) ([facility]) Given 12/03/2023 6:52 EST 9,000 Units documented in this encounter Orders Medications Ordered That Davide ht Not Have Been Administered Count Last Ordered Date First Ordered Date LiquaCel liquid protein liquid 30 mL 1 06/2024 Dialysis Count Last Ordered Date First Orde red Date HEMODIALYSIS 1 12/03/2023 documented in this encounter Care Teams Pick Up Truck Driver Relationship Specialty Start Date End Date Ken Greer [place] [address] PCP - General 07/07/23 documented as of this encounter
--- OUTSIDE RECORDS SUMMARY | 2024-12-05 12:14 | XMS_ITS | Encounter Summary ---
Author Organization [facility] Address [address] [place] [address] Care Team Providers Care Visual Inspector Name Role Phone Ken Greer MD Primary Care Provider [phone] Encounter Details Date Type Department Care Team (Latest Contact Info) Description 11/24/2023 6:45 EST Treatment [facility] [address] [place], [place] [id number] Carlota Jin MD 1 [facility], Level [address] [place] [phone] ESRD (end stage renal disease) ([facility]) (Primary Dx); Anemia of chronic renal failure, unspecified CKD stage; Hypoalbuminemia; Secondary hyperparathyroidism ([facility]) Social History Tobacco Use Types [...] - Temperature - - Respiratory Rate 16 11/24/2023 0626 EST Oxygen Saturation - - Inhaled Oxygen Concentration - - Weight 89.6 kg (197 lb 8.5 oz) 11/24/[address] Height - - Body Mass Index 28.34 11/07/2023 0500 EST documented in this encounter [...] Flowsheet Note - Marcela Cox RN - 11/24/2023 1153 EST 11/24/23 1041 Post-Hemodialysis Assessment Total Blood Processed (L) 89.73 Liters On Line Clearance: spKt/V 1.47 spKt/V Dialyzer Clearance Lightly streaked Treatment UFR (ml:kg:hr) 9.82 ml:kg:hr Critline refill Not done Fluid Removed (L) 3.6 L Post-Dialysis Scale Weight 86.2 kg (190 lb 0.6 oz) Wheelchair Weight 0 kg (0 lb) Prosthesis Weight 0 kg (0 lb) Post-Treatment Weight (kg) 86.2 Treatment Weight Change (kg) 3.4 kg Day Target Weight (kg) 86.5 Post Sitting/Lying BP 133/67 Post Sitting/Lying pulse 68 Temp 36.2 ??C (97.2 ??F) Temp src Temporal Minutes Short -241 Post access assessment Bruit present: Yes Thrill Present AVF/AFG Hemostasis achieved Yes Note Patient held for 10mins with blue clamps Orientation Alert and Oriented x3 Yes Time Yes Place Yes Person Yes Cooperative Yes Disoriented No Discharge Ambulation Methods Departs via w/c Wrap up items Patient Response to Treatment Tolerated tx well. Removed 3.6L UF goal without difficulty. Comments No issues during tx, no concerns voiced post tx. documented in this encounter Plan of Treatment Upcoming Encounters Date Type Department Care Team (Late st Contact Info) Description 12/06/2024 6:45 EST Treatment [facility] [address] [place], [place] [id number] Carlota Jin MD [address] [place] [phone] 12/08/2024 6:45 EST Treatment [facility] [address] [place], [place] [id number] Carlota Jin MD [address] [place] [phone] 12/11/2024 6:45 EST Treatment [facility] [address] [place], [place] [id number] Carlota Jin MD [address] [place] [address] 2 [place] [phone] 12/13/2024 6:45 EST Treatment [facility] [address] [place] [id number] Carlota Jin MD [facility], [facility] 2 [place] [phone] 12/15/2024 6:45 EST Treatment [facility] [place] [address] [place], [place] [id number] Carlota Jin MD [facility], [facility] 2 [place] [phone] 12/18/2024 6:45 EST Treatment [facility] [place] [address] [place], [place] [id number] Carlota Jin MD 1 [facility], [facility] 2 [place] [phone] 12/20/2024 6:45 EST Treatment [facility] [place] [address] [place], [place] [id number] Carlota Jin MD 1 [facility], [facility] 2 [place] [phone] 12/22/2024 6:45 EST Treatment [facility] [address] [place], [place] [id number] Carlota Jin MD 1 [facility], [facility] 2 [place] [phone] 12/25/2024 6:45 EST Treatment [facility] [place] [address] [place], [place] [id number] Carlota Jin MD 1 [facility], [facility] 2 [place] [phone] 12/27/2024 6:45 EST Treatment [facility] [place] [address] [place], [place] [id number] Carlota Jin MD 1 [facility], [facility] 2 [place] [phone] 12/29/2024 6:45 EST Treatment [facility] [place] [address] [place], [place] [id number] Carlota Jin MD 1 [facility], [facility] 2 [place] [phone] 01/01/2025 6:45 EDT Treatment [facility] [place] [address] [place] [address] Carlota Jin MD 1 [facility], [address] [phone] 01/03/2025 6:45 EDT Treatment [facility] [place] [address] [place], [place] [id number] Carlota Jin MD 1 [facility], [facility] 2 [place] [phone] 01/05/2025 6:45 EDT Treatment [facility] [place] [address] [place], [place] [id number] Carlota Jin MD 1 [facility], [facility] 2 [place] [phone] 01/08/2025 6:45 EDT Treatment [facility] [place] [address] [place], [place] [id number] Carlota Jin MD 1 [facility], [facility] 2 [place] [phone] 01/10/2025 6:45 EDT Treatment [facility] [place] [address] [place] [address] [address] MD [facility], [facility] 2 [place] [phone] 01/12/2025 6:45 EDT Treatment [facility] [place] [address] [place] [address] Carlota Jin MD 1 [facility], [facility] 2 [place] [phone] 01/15/2025 6:45 EDT Treatment [facility] [address] [place] [address] Carlota Jin MD 1 [facility], [facility] 2 [place] [phone] 01/17/2025 6:45 EDT Treatment [facility] [address] [place] [address] Carlota Jin MD 1 [facility], [facility] 2 [place] [phone] 01/19/2025 6:45 EDT Treatment [facility] [place] [address] [place], [place] [id number] Carlota Jin MD 1 [facility], [facility] 2 [place] [phone] 01/22/2025 6:45 EDT Treatment [facility] [address] [place], [place] [address] Carlota Jin MD 1 [facility], [facility] 2 [place] [phone] 01/24/2025 6:45 EDT Treatment [facility] [address] [place], [place] [id number] Carlota Jin MD 1 [facility], [facility] 2 [place] [phone] 01/26/2025 6:45 EDT Treatment [facility] [place] [address] [place], [place] [id number] Carlota Jin MD 1 [facility], [facility] 2 [place] [phone] 01/29/2025 6:45 EDT Treatment [facility] [place] [address] [place], [place] [address] Carlota Jin MD 1 [facility], [facility] 2 [place] [phone] 01/31/2025 6:45 EDT Treatment [facility] [place] [address] [place], [place] [id number] Carlota Jin MD 1 [facility], [facility] 2 [place] [phone] 02/02/2025 6:45 EDT Treatment [facility] [place] [address] [place], [place] [id number] Carlota Jin MD 1 [facility], [facility] 2 [place] [phone] 02/05/2025 6:45 EDT Treatment [facility] [address] [place], [place] [id number] Carlota Jin MD 1 [facility], [address] [phone] 02/07/2025 6:45 EDT Treatment [facility] [address] [place], [place] [id number] Carlota Jin MD 1 [facility], [address] [phone] 02/09/2025 6:45 EDT Treatment [facility] [place] [address] [place], [place] [id number] Carlota Jin MD [address] [phone] 02/12/2025 6:45 EDT Treatment [facility] [place] [address] [place], [place] [id number] Carlota Jin MD [address] [phone] 02/14/2025 6:45 EDT Treatment [facility] [place] [address] [place], [place] [id number] Carlota Jin MD 1 [facility], [facility] 2 [place] [phone] 02/16/2025 6:45 EDT Treatment [facility] [address] [place], [place] [id number] Carlota Jin MD 1 [facility], [facility] 2 [place] [phone] 02/19/2025 6:45 EDT Treatment [facility] [address] [place], [place] [id number] Carlota Jin MD 1 [facility], [facility] 2 [place] [phone] 02/21/2025 6:45 EDT Treatment [facility] [address] [place], [place] [id number] Carlota Jin MD 1 [facility], [address] [phone] documented as of this encounter Procedures Procedure Name Priority Date/Time Associated Diagnosis Comments COMPLETE BLOOD COUNT Routine 11/24/2023 6:30 EST ESRD (end stage renal disease) ([facility]) HEMODIALYSIS Routine 11/24/2023 6:26 EST ESRD (end stage renal disease) ([facility]) documented in this encounter Results * (ABNORMAL) COMPLETE BLOOD COUNT (11/24/2023 6:30 EST) WBC 8.53 4.00 - 10.40 K/cmm 11/24/2023 22:35 EST [facility] RBC 3.14(L) 4.36 - 5.78 M/cmm 11/24/2023 22:35 EST [facility] Hemoglobin 9.6(L) 13.8 - 17.3 g/dL 11/24/2023 22:35 [facility] HCT 28.8(L) 39.5 - 50.2 % 11/24/2023 22:35 [facility] MCV 92 81 - 95 fL 11/24/2023 22:35 [facility] MCH 30.6 27.6 - 33.0 pg 11/24/2023 22:35 [facility] MCHC 33.3 32.8 - 36.4 g/dL 11/24/2023 22:35 [facility] RDW-CV 12.3 <14.2 % 11/24/2023 22:35 [facility] RDW-SD 41.1 <46.0 fl 11/24/2023 22:35 [facility] PLT 318 141 - 377 K/cmm 11/24/2023 22:35 [facility] MPV 12.2 9.5 - 12.7 fL 11/24/2023 22:35 [facility] Blood VENOUS BLOOD / Unknown Venipuncture / Unknown 11/24/2023 6:30 EST 11/24/2023 6:31 EST Skye Gomez NP HEMATOLOGY & PF4 ORDERABLES Final Result [facility] [address] [place] [address] documented in this encounter Visit Diagnoses Diagnosis ESRD (end stage renal disease) ([facility])- Primary End stage renal disease Anemia of chronic renal failure, unspecified CKD stage Hypoalbuminemia Other disorders of plasma protein metabolism Secondary hyperparathyroidism ([facility]) Secondary hyperparathyroidism (of renal origin) documented in this encounter Administered Medications Inactive Administered Medications - up to 3 most recent administrations Medication Order MAR Action Action Date Dose Rate Site calcium carbonate (TUMS) tablet 500 mg (200 mg elemental calcium) 2 Tablet 2 Tablet, oral, ONCE IN DIALYSIS, 1 dose, On Wed11/24/23 at 0645, Routine, DialysisIndications:ESRD (end stage renal disease) ([facility]),Secondary hyperparathyroidism ([facility]) Given 11/24/2023 6:43 EST 2 Tablets epoetin ken (EPOGEN) 20,000 unit/2 mL injection 1,000 Units 1,000 Units, intravenous, ONCE IN DIALYSIS, 1 dose, On Wed11/24/23 at 0645, Routine, DialysisIndications:ESRD (end stage renal disease) ([facility]),Anemia of chronic renal failure, unspecified CKD stage Given 11/24/2023 6:42 EST 1,000 Units heparin injection 9,000 Units 9,000 Units, intravenous, ONCE IN DIALYSIS, 1 dose, On Wed11/24/23 at 0645, Routine, Dialysis, Now x1 bolus 4500 units to be given at the beginning of dialysis 1500 units/hour to be given over the course of dialysis (9000 units total). Stop 1 hour prior to end of treatment. To be administered per Policy [id number].Indications:ESRD (end stage renal disease) ([facility]) Given 11/24/2023 6:42 EST 9,000 Units LiquaCel liquid protein liquid 30 mL 30 mL, oral, ONCE IN DIALYSIS, 1 dose, On Wed11/24/23 at 0645, RoutineIndications:ESRD (end stage renal disease) ([facility]),Hypoalbuminemia Given 11/24/2023 6:43 EST 30 mL documented in this encounter Orders Dialysis Count Last Ordered Date First Orde red Date HEMODIALYSIS 1 11/24/2023 documented in this encounter Care Teams Visual Inspector Relationship Specialty Start Date End Date Ken Greer MD [address] [place] [address] PCP - General 07/07/23 documented as of this encounter
--- OUTSIDE RECORDS SUMMARY | 2024-12-05 12:14 | XMS_ITS | Encounter Summary ---
Author Organization [facility] Address [address] [place] [address] Care Team Providers Care Eye Surgeon Name Role Phone Ken Greer MD Primary Care Provider [phone] Encounter Details Date Type Department Care Team (Late st Contact Info) Description 11/22/2023 Documentation Visit [address] [place], [place] [phone] Melissa Crespo, VIDYA Social History Tobacco Use [...] Contact Info) Description 12/06/2024 6:45 EST Treatment [facility] [address] [place], [place] [phone] Carlota Jin MD 1 [facility], [facility] 2 [place] [phone] 12/08/2024 6:45 EST Treatment [facility] [place] [address] [place], [place] [phone] Carlota Jin MD 1 [facility], [facility] 2 [place] [phone] 12/11/2024 6:45 EST Treatment [facility] [place] [address] [place], [place] [phone] Carlota Jin MD 1 [facility], [facility] 2 [place] [phone] 12/13/2024 6:45 EST Treatment [facility] [address] [place], [place] [phone] Carlota Jin MD 1 [facility], Level [address] [place] [phone] 12/15/2024 6:45 EST Treatment [facility] [place] [address] [place], [place] [address] Carlota Jin MD 1 [facility], [facility] [address] [place] [phone] 12/18/2024 6:45 EST Treatment [facility] [address] [place], [place] [id number] Carlota Jin MD 1 [facility], [facility] 2 [place] [phone] 12/20/2024 6:45 EST Treatment [facility] [place] [address] [place], [place] [id number] Carlota Jin MD 1 [facility], [facility] 2 [place] [phone] 12/22/2024 6:45 EST Treatment [facility] [place] [address] [place] [address] Carlota Jin MD 1 [facility], [facility] 2 [place] [phone] 12/25/2024 6:45 EST Treatment [facility] [place] [address] [place], [place] [id number] Carlota Jin MD 1 [facility], [facility] 2 [place] [phone] 12/27/2024 6:45 EST Treatment [facility] [place] [address] [place], [place] [id number] Carlota Jin MD 1 [facility], [facility] 2 [place] [phone] 12/29/2024 6:45 EST Treatment [facility] [place] [address] [place], [place] [phone] Carlota Jin MD 1 [facility], [facility] 2 [place] [phone] 01/01/2025 6:45 EDT Treatment [facility] [place] [address] [place], [place] [id number] Carlota Jin MD 1 [facility], [facility] 2 [place] [phone] 01/03/2025 6:45 EDT Treatment [facility] [place] [address] [place], [place] [id number] Carlota Jin MD [address] [place] [address], [facility] 2 [place] [phone] 01/05/2025 6:45 EDT Treatment [facility] [address] [place], [place] [id number] Carlota Jin MD 1 [facility], [facility] 2 [place] [phone] 01/08/2025 6:45 EDT Treatment [facility] [place] [address] [place], [place] [id number] Carlota Jin MD 1 [facility], [facility] 2 [place] [phone] 01/10/2025 6:45 EDT Treatment [facility] [place] [address] [place], [place] [id number] Carlota Jin MD 1 [facility], [facility] 2 [place] [phone] 01/12/2025 6:45 EDT Treatment [facility] [address] [place], [place] [id number] Carlota Jin MD 1 [facility], [facility] 2 [place] [phone] 01/15/2025 6:45 EDT Treatment [facility] [address] [place] [address] Carlota Jin MD 1 [facility], [facility] 2 [place] [phone] 01/17/2025 6:45 EDT Treatment [facility] [address] [place], [place] [phone] Carlota Jin MD 1 [facility], [facility] 2 [place] [phone] 01/19/2025 6:45 EDT Treatment [facility] [place] [address] [place], [place] [id number] Carlota Jin MD 1 [facility], [facility] [address] [place] [phone] 01/22/2025 6:45 EDT Treatment [facility] [address] [place], [place] [id number] Carlota Jin MD 1 [facility], [facility] 2 [place] [phone] 01/24/2025 6:45 EDT Treatment [facility] [address] [place], [place] [id number] Carlota Jin MD 1 [facility], [facility] 2 [place] [phone] 01/26/2025 6:45 EDT Treatment [facility] [place] [address] [place], [place] [id number] Carlota Jin MD 1 [facility], [facility] 2 [place] [phone] 01/29/2025 6:45 EDT Treatment [facility] [place] [address] [place], [place] [id number] Carlota Jin MD 1 [facility], [facility] 2 [place] [phone] 01/31/2025 6:45 EDT Treatment [facility] [place] [address] [place], [place] [id number] Carlota Jin MD 1 [facility], [facility] 2 [place] [phone] 02/02/2025 6:45 EDT Treatment [facility] [place] [address] [place], [place] [address] Carlota Jin MD 1 [facility], [facility] 2 [place] [phone] 02/05/2025 6:45 EDT Treatment [facility] [place] [address] [place] [address] Carlota Jin MD 1 [facility], [facility] 2 [place] [phone] 02/07/2025 6:45 EDT Treatment [facility] [place] [address] [place], [place] [id number] Carlota Jin MD 1 [facility], [facility] 2 [place] [phone] 02/09/2025 6:45 EDT Treatment [facility] [place] [address] [place], [place] [id number] Carlota Jin MD 1 [facility], [facility] 2 [place] [phone] 02/12/2025 6:45 EDT Treatment [facility] [address] [place], [place] [id number] Carlota Jin MD 1 [facility], [facility] 2 [place] [phone] 02/14/2025 6:45 EDT Treatment [facility] [address] [place], [place] [id number] Carlota Jin MD 1 [facility], [facility] 2 [place] [phone] 02/16/2025 6:45 EDT [facility] [address] [place], [place] [id number] Carlota Jin MD 1 [facility], [facility] 2 [place] [phone] 02/19/2025 6:45 EDT Treatment [facility] [address] [place], [place] [id number] Carlota Jin MD [address] [place] [address], [facility] 2 [place] [phone] 02/21/2025 6:45 EDT Treatment [facility] [address] [place], [place] [id number] Carlota Jin MD [address] [place] [address], [facility] 2 [place] [phone] documented as of this encounter Visit Diagnoses Not on filedocumented in this encounter Care Teams Eye Surgeon Relationship Specialty Start Date End Date Ken Greer MD [facility] [place] [address] PCP - General 07/07/23 documented as of this encounter
--- OUTSIDE RECORDS SUMMARY | 2024-12-05 12:14 | XMS_ITS | Encounter Summary ---
Author Organization [facility] Address [address] [place] [address] Care Team Providers Care Professor Of Biological Sciences Name Role Phone Ken Greer MD Primary Care Provider [phone] Encounter Details Date Type Department Care Team (Latest Contact Info) Description 12/01/2023 6:45 EST Treatment [facility] [address] [place], [place] [phone] Carlota Jin MD 1 [facility], Level [address] [place] [address] ESRD (end stage renal disease) ([facility]) (Primary Dx); Anemia of chronic renal failure, unspecified CKD stage; Secondary hyperparathyroidism ([facility]) Social History Tobacco Use Types [...] - Temperature - - Respiratory Rate 16 12/01/2023 0624 EST Oxygen Saturation - - Inhaled Oxygen Concentration - - Weight 90.6 kg (199 lb 11.8 oz) 12/01/2023 0631 EST Height - - Body Mass Index 28.66 11/07/2023 0500 EST documented in this encounter [...] Flowsheet Note - Marcela Cox RN - 12/01/2023 1144 EST 12/01/23 1048 Post-Hemodialysis Assessment Total Blood Processed (L) 90.79 Liters On Line Clearance: spKt/V 1.46 spKt/V Dialyzer Clearance Lightly streaked Treatment UFR (ml:kg:hr) 12.71 ml:kg:hr Final Critline Profile (%/hr) -1.59 Final Profile Profile A Critline refill Negative (29.9/29.7) Fluid Removed (L) 4.5 L Post-Dialysis Scale Weight 86.2 kg (190 lb 0.6 oz) Wheelchair Weight 0 kg (0 lb) Prosthesis Weight 0 kg (0 lb) Post-Treatment Weight (kg) 86.2 Treatment Weight Change (kg) 4.4 kg Day Target Weight (kg) 86.6 Post Sitting/Lying BP 139/70 Post Sitting/Lying pulse 75 Temp 36.5 ??C (97.7 ??F) Temp src [...] Dialysis Comprehensive - Skye Gomez NP - 12/01/2023 0645 EST Images from the original note were not included. 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 associated with type 2diabetes mellitus ([facility]) ESRD (end stage renal disease) ([facility]) Essential (primary) hypertension Hearing loss Herniation of lumbar intervertebral disc with radiculopathy Hyperlipidemia Proteinuria Right sided numbness Secondary hyperparathyroidism ([facility]) TIA (transient ischemic attack) Type II or unspecified type diabetes mellitus with neurological manifestations, uncontrolled(250.62) Encounter for immunization Hypoalbuminemia Anemia of chronic renal failure Abnormal albumin Cellulitis and abscess of foot, except toes Encounter for therapeutic drug monitoring Diabetic foot infection ([facility]) COVID Type 2 diabetes mellitus with hypoglycemia without coma, with long-term current use of insulin ([facility]) Treatment Modality: Patient received information [...] No Listing On-Hold? No No Transplant Center [facility] Comments Patient does not meet transplant criteria due to daily smoking cigarettes pt referred to transplant @ [facility] Current Dialysis Prescription: Hemodialysis Therapy Plan [...] with Nursing: Yes Average Interdialytic Fluid Gains: 11/26/2023 6:31 11/26/2023 10:43 11/29/2023 6:24 11/29/2023 6:27 11/29/2023 10:51 12/01/2023 6:24 12/01/2023 6:31 InterDialytic +/- Gain/Loss 2 6.5 6.5 2.1 2.1 Wt (pre) 88.2 92.7 92.7 90.6 90.6 Wt (post) 86.2 88.5 Treatment UFR (ml:kg:hr) 5.8 ml:kg:hr 11.82 ml:kg:hr BP (post) 185/91 200/99 200/99 190/86 190/86 Pulse(post) 78 78 78 79 79 Resp (/min) 16 16 Volume and blood pressure have been addressed with the following changes: None Consistently able to achieve estimated dry weight? Yes Blood pressure is in range for patient? Yes; hypertension associated with large fluid gains. Any adverse intradialytic symptoms? No Plan: Managed per protocol Physical Exam Constitutional NAD Respiratory: unlabored Cardiac: deferred Abdomen: Non distended Extremities: Trace edema Hospitalization Hospitalization in Previous 1 Month: No Emergency Room Visit in Previous 1 Month: No Access Management Current LDAs: Hemodialysis Arteriovenous Access 02/13/19 (Active) AV Fistula Present 12/01/23 06 Site Assessment Clean;Dry;Intact;Bruit heard;Thrill felt 12/01/23 06 Current State Active 12/01/23654 Status Accessed 12/01/23654 Is Maturing N 12/01/23654 Local Anesthetic None 12/01/23654 Site Prep Chlorhexidine 12/01/23654 Venous Needle Size 15 G 12/01/23654 Arterial/Generic Needle Size 15 G 12/01/23 06 Accessed by: Rhea 12/01/23654 Access Attempts 2 12/01/23654 Dressing Status/Care Clean/Dry/Intact 11/10/23 1444 Dressing Intervention Chloraprep 11/08/23 1245 Patient has AVF/AVG as primary access: Yes Patient has Catheter as primary access >90 days: No Home Medication Review/Update Current Outpatient Medications: amLODIPine (NORVASC) 10 mg tablet, Take 1 Tablet by mouth daily., Disp: , Rfl: amoxicillin-clavulanate (AUGMENTIN) 500-125 mg per tablet, Take 1 Tablet by mouth every 24 hours for 26 days., Disp: 26 Tablet, Rfl: 0 atorvastatin (LIPITOR) 40 mg tablet, Take 1 Tablet by mouth daily., Disp: , Rfl: calcium carbonate (TUMS) 200 mg calcium (500 mg) tablet,chewable, Take 1 Tablet by mouth 3 times daily with meals., Disp: , Rfl: carvediloL (COREG) 12.5 mg tablet, Take 1 Tablet by mouth 2 times daily., Disp: , Rfl: cholecalciferol, Vitamin D3, 50 mcg (2,000 unit) tablet, Take 1 Tablet by mouth daily for 28 days.,Disp: 28 Tablet, Rfl: 0 famotidine (PEPCID) 40 mg tablet, Take 1 Tablet by mouth daily., Disp: , Rfl: FLOVENT HFA 110 mcg/actuation inhaler, Inhale 1 Puff as directed., Disp: , Rfl: LEVEMIR FLEXPEN 100 unit/mL (3 mL) injectable pen, , Disp: , Rfl: MULTIVITAMIN ORAL, Take by mouth., Disp: , Rfl: nicotine (NICODERM CQ) 21 mg/24 hr patch, Place 1 Patch onto the skin daily., Disp: 30 Each, Rfl: 0 olmesartan (BENICAR) 5 mg tablet, TAKE ONE TABLET BY MOUTH EVERY DAY STOP HCTZ, Disp: , Rfl: pregabalin (LYRICA) 150 mg capsule, TAKE ONE CAPSULE BY MOUTH TWICE A DAY, MAXIMUM DAILY DOSE = 2 CAPSULES, Disp: , Rfl: sevelamer carbonate (RENVELA) 800 mg tablet, Take 2 Tablets by mouth 3 times daily with meals for 28 days., Disp: 168 Tablet, Rfl: 0 Current Facility-Administered Medications: acetaminophen (TYLENOL) tablet 650 mg, 650 mg, oral, Q4H PRN, Skye Gomez NP, 650 mg at 12/01/23 0653 Adjustment made to home medication: No Dialysis Medication Review Dialysis Plan Order Summary All Current Orders Interval Duration Due Hemodialysis Therapy Plan Dialysis Treatment In-Center Hemodialysis 3 times a week Week of 11/28/2023 Routine, ONE TIME Starting when released Prescribed [...] 1 Dialysis - UF Profile: None Dialysis 11/12/23: UF as tolerated. No heparin and 3 hour treatment if inpatient Last released: Wed12/01/2023 Oxygen Therapy (Age 3 yrs. to Adult) [...] released Until Discontinued, Pain, Dialysis Last released: Wed12/01/2023 diphenhydrAMINE (BENADRYL) capsule 25 mg PRN PRN [...] of treatment. To be administered per Policy [id number]. Last released: Wed12/01/2023 sodium chloride 0.9 % BOLUS 100 mL PRN PRN 100 mL, intravenous, PRN Starting when released Until Discontinued, Other, hypotension or cramping,Dialysis Last released: Never Dialysis Weekly Labs Complete Blood Count Weekly: Wed12/08/2023 Routine, ONE TIME Starting when released, Blood, Venous, Blood Results Release to Patient (Note: Choosing Manual Release will only block results from tests performed at [facility] and does not apply for Miscellaneous Test Order): Immediate via MyChart Portal Dialysis Last released: Wed12/01/2023 Dialysis Monthly Labs Dialysis Iron (Includes Iron, IBC, and Ferritin) - Nephrology Use Only On the Wed of every 1 month Wed12/27/2023 Routine, ONE TIME Starting when released, Blood, Venous, Blood Results Release to Patient (Note: Choosing Manual Release will only block results from tests performed at [facility] and does not apply for Miscellaneous Test Order): Immediate via MyChart Portal Dialysis Last released: Wed11/29/2023 Dialysis Routine- Dialysis Use Only On the Wed of every 1 month Wed12/27/2023 Routine, ONE TIME Starting when released, Blood, Blood, Venous Results Release to Patient (Note: Choosing Manual Release will only block results from tests performed at [facility] and does not apply for Miscellaneous Test Order): Immediate via MyChart Portal Dialysis Last released: Wed11/29/2023 Postdialysis BUN with URR Calculation On the Wed of every 1 month Wed12/27/2023 Routine, ONE TIME Starting when released, Blood, Blood, Venous Results Release to Patient (Note: Choosing Manual Release will only block results from tests performed at [facility] and does not apply for Miscellaneous Test Order): Immediate via MyChart Portal Dialysis Last released: Wed11/29/2023 Dialysis Quarterly Labs PTH Intact On the [...] via MyChart Portal Dialysis Last released: Wed10/27/2023 Folate On [...] (EPOGEN) 20,000 unit/2 mL injection 1,000 Units 3 times a week Week of 11/28/2023 1,000 Units, intravenous, ONCE IN DIALYSIS Starting when released, Dialysis Last released: Wed12/01/2023 HEMODIALYSIS NUTRITIONAL SUPPLEMENTS Nutritional Supplements LiquaCel liquid protein liquid 30 mL Every visit Every visit 30 mL, oral, ONCE IN DIALYSIS Starting when released Last released: Wed11/29/2023 HEMODIALYSIS CKD MBD MEDS Medications calcium carbonate (TUMS) tablet 500 mg (200 mg elemental calcium) 2 Tablet Every visit Every visit 2 Tablet, oral, ONCE IN DIALYSIS Starting when released, Dialysis Last released: Wed12/01/2023 Adjustment made to dialysis medication: No Laboratory Results Dialysis Adequacy: spKt/V: 1.27 (Calculated from:; BUN Pre-Dialysis: 74 mg/dL at 11/29/2023 11:12; BUN Post-Dialysis: 26mg/dL at 11/29/2023 11:12; Pre-Treatment Weight (kg): 92.7 at 11/29/2023 6:27; Post-Treatment Weight (kg): 88.5 at 11/29/2023 10:51; Duration of Treatment (minutes): 241 minutes at 11/29/2023 10:46) Plan: Continue current dialysis prescription Anemia Management: Lab Results Component Value Date WBC 8.53 11/24/2023 HGB 9.6 (L) 11/24/2023 HGB 9.7 (L) 11/17/2023 HGB 10.0 (L) 11/12/2023 PLT 318 11/24/2023 FOLATE >24.0 10/27/2023 [id number] 607 10/27/2023 FERRITIN 694 (H) 11/29/2023 Current GEORGE/Dose: HEMODIALYSIS ANEMIA MEDS epoetin ken (EPOGEN) 20,000 unit/2 mL injection 1,000 Units 1,000 Units, intravenous, 3 times a week, ONCE [...] Component Value Date LABALBU 2.9 (L) 11/29/2023 ALKPHOS 106 11/29/2023 PHOS 7.4 (H) 11/29/2023 CALCIUM 8.4 (L) 11/29/2023 CALCCA 9.3 11/29/2023 PTH 707 (H) 10/27/2023 Vitamin D: cholecalciferol (Vitamin D3) - 50 mcg (2,000 unit) sevelamer carbonate - 800 mg This patient does not have an active medication from one of the medication groupers. Plan: Managed per protocol Potassium Management: Lab Results Component Value Date K 5.9 (H) 11/29/2023 Prescribed Potassium Concentrate: HEMODIALYSIS Ordered at: 12/01/23 06 Dialysate concentrate: Potassium 2 mEq/L Calcium 2.5 mEq/L 12/01/2023 6:24 Last Dialysis Prescription released on: Selected bath: Potassium 2 mEq/L Calcium 2.5 mEq/L sevelamer carbonate - 800 mg Plan: Managed per protocol Nutrition: Lab Results Component Value Date LABALBU 2.9 (L) 11/29/2023 NA 131 (L) 11/29/2023 SERGLU 256 (H) 11/10/2023 HGBA1C 11.6 (H) 11/07/2023 Protein Supplements: This patient does not have an active medication from one of the medication groupers. Plan: Managed per protocol Comments: Hypertension associated with large fluid gains. documented in this encounter Plan of Treatment Upcoming Encounters Date Type Department Care Team (Late st Contact Info) Description 12/06/2024 6:45 EST Treatment [facility] Dialysi [facility] [address] [place], [place] [phone] Carlota Jin MD [address] [place] [phone] 12/08/2024 6:45 EST Treatment [facility] Dialysi [facility] [address] [place], [place] [phone] Carlota Jin MD [address] [place] [address], [address] [phone] 12/11/2024 6:45 EST Treatment [facility] - [place] [address] [place], [place] [phone] Carlota Jin MD 1 [facility], [facility] 2 [place] [phone] 12/13/2024 6:45 EST Treatment [facility] - [place] [address] [place], [place] [phone] Carlota Jin MD 1 [facility], [facility] [address] [place] [phone] 12/15/2024 6:45 EST Treatment [facility] Dialysi - [place] [address] [place], [place] [address] [phone] Carlota Jin MD 1 [facility], [facility] [address] [place] [phone] 12/18/2024 6:45 EST Treatment [facility] - [place] [address] [place], [place] [phone] Carlota Jin MD 1 [facility], [facility] [place] [phone] 12/20/2024 6:45 EST Treatment [facility]ys[facility] - [place] [address] [place], [place] [phone] Carlota Jin MD 1 [facility], [facility] [place] [phone] 12/22/2024 6:45 EST Treatment [facility] - [place] [address] [place], [place] [address] Carlota Jin MD 1 [facility], [facility] [place] [phone] 12/25/2024 6:45 EST Treatment [facility] - [place] [address] [place], [place] [phone] Carlota Jin MD 1 [facility], [facility] [place] [phone] 12/27/2024 6:45 EST Treatment [facility] - [place] [address] [place], [place] [phone] Carlota Jin MD 1 [facility], [facility] [place] [phone] 12/29/2024 6:45 EST Treatment [facility] D[facility]ys[facility] - [place] [address] [place], [place] [phone] Carlota Jin MD 1 [facility], [address] [phone] 01/01/2025 6:45 EDT Treatment [facility] - [place] [address] [place], [place] [phone] Carlota Jin MD 1 [facility], [facility] [address] [place] [phone] 01/03/2025 6:45 EDT Treatment [facility] - [place] [address] [place], [place] [phone] Carlota Jin MD 1 [facility], [facility] 2 [place] [phone] 01/05/2025 6:45 EDT Treatment [facility] Dialys[facility] - [place] [address] [place], [place] [phone] Carlota Jin MD 1 [facility], [facility] [place] [phone] 01/08/2025 6:45 EDT Treatment [facility] D[facility]ys[facility] - [place] [address] [place], [place] [phone] Carlota Jin MD 1 [facility], [facility] [address] [place] [phone] 01/10/2025 6:45 EDT Treatment [facility] - [place] [address] [place], [place] [phone] Carlota Jin MD 1 [facility], [address] [phone] 01/12/2025 6:45 EDT Treatment [facility] - [place] [address] [place] [address] Carlota Jin MD 1 [facility], [facility] 2 [place] [phone] 01/15/2025 6:45 EDT Treatment [facility] Dialysi [place] [address] [place], [place] [phone] Carlota Jin MD 1 [facility], [facility] 2 [place] [phone] 01/17/2025 6:45 EDT Treatment [facility] - [place] [address] [place], [place] [phone] Carlota Jin MD 1 [facility], [facility] 2 [place] [phone] 01/19/2025 6:45 EDT Treatment [facility] - [place] [address] [place], [place] [phone] Carlota Jin MD 1 [facility], [address] [phone] 01/22/2025 6:45 EDT Treatment [facility] D[facility]ys[facility] - [place] [address] [place], [place] [phone] Carlota Jin MD 1 [facility], [address] [phone] 01/24/2025 6:45 EDT Treatment [facility] - [place] [address] [place], [place] [phone] Carlota Jin MD 1 [facility], [address] [phone] 01/26/2025 6:45 EDT Treatment [facility] - [place] [address] [place], [place] [phone] Carlota Jin MD 1 [facility], [address] [phone] 01/29/2025 6:45 EDT Treatment [facility]ys[facility] - [place] [address] [place], [place] [phone] Carlota Jin MD 1 [facility], Level [address] [place] [phone] 01/31/2025 6:45 EDT Treatment [facility] - [place] [address] [place], [place] [address] Carlota Jin MD 1 [facility], [facility] 2 [place] [phone] 02/02/2025 6:45 EDT Treatment [facility] - [place] [address] [place], [place] [phone] Carlota Jin MD 1 [facility], [facility] 2 [place] [phone] 02/05/2025 6:45 EDT Treatment [facility] - [place] [address] [place], [place] [phone] Carlota Jin MD 1 [facility], [facility] 2 [place] [phone] 02/07/2025 6:45 EDT Treatment [facility] [address] [place], [place] [phone] Carlota Jin MD 1 [facility], [facility] 2 [place] [phone] 02/09/2025 6:45 EDT Treatment [facility] Dialysi [facility] [address] [place], [place] [address] Carlota Jin MD 1 [facility], [facility] 2 [place] [phone] 02/12/2025 6:45 EDT Treatment [facility]ys[facility] - [place] [address] [place], [place] [phone] Carlota Jin MD 1 [facility], [facility] 2 [place] [phone] 02/14/2025 6:45 EDT Treatment [facility]ial[facility] [address] [place], [place] [phone] Carlota Jin MD [address] [place] [phone] 02/16/2025 6:45 EDT Treatment [facility]ial[facility]i [facility] [address] [place], [place] [phone] Carlota Jin MD [address] [place] [address], [address] [phone] 02/19/2025 6:45 EDT Treatment [facility] [address] [place], [place] [phone] Carlota Jin MD [address] [place] [phone] 02/21/2025 6:45 EDT Treatment [facility]ial[facility] [address] [place], [place] [phone] Carlota Jin MD [address] [phone] documented as of this encounter Procedures Procedure Name Priority Date/Time Associated Diagnosis Comments COMPLETE BLOOD COUNT Routine 12/01/2023 6:35 EST ESRD (end stage renal disease) ([facility]) HEMODIALYSIS Routine 12/01/2023 6:24 EST ESRD (end stage renal disease) ([facility]) documented in this encounter Results * (ABNORMAL) COMPLETE BLOOD COUNT (12/01/2023 6:35 EST) WBC 9.11 4.00 - 10.40 K/cmm 12/01/2023 21:54 [facility] RBC 2.95(L) 4.36 - 5.78 M/cmm 12/01/2023 21:54 [facility] Hemoglobin 9.1(L) 13.8 - 17.3 g/dL 12/01/2023 21:54 [facility] HCT 27.5(L) 39.5 - 50.2 % 12/01/2023 21:54 [facility] MCV 93 81 - 95 fL 12/01/2023 21:54 [facility] MCH 30.8 27.6 - 33.0 pg 12/01/2023 21:54 [facility] MCHC 33.1 32.8 - 36.4 g/dL 12/01/2023 21:54 [facility] RDW-CV 12.9 <14.2 % 12/01/2023 21:54 [facility] RDW-SD 44.1 <46.0 fl 12/01/2023 21:54 [facility] PLT 323 141 - 377 K/cmm 12/01/2023 21:54 [facility] MPV 11.7 9.5 - 12.7 fL 12/01/2023 21:54 [facility] Blood VENOUS BLOOD / Unknown Venipuncture / Unknown 12/01/2023 6:35 EST 12/01/2023 6:35 EST us Skye Gomez NP HEMATOLOGY & PF4 ORDERABLES Final Result [facility] [address] [place] [address] documented in this encounter Visit Diagnoses Diagnosis ESRD (end stage renal disease) ([facility])- Primary End stage renal disease Anemia of chronic renal failure, unspecified CKD stage Secondary hyperparathyroidism ([facility]) Secondary hyperparathyroidism (of renal origin) documented in this encounter Administered Medications Inactive Administered Medications - up to 3 most recent administrations Medication Order MAR Action Action Date Dose Rate Site acetaminophen (TYLENOL) tablet 650 mg 650 mg, oral, EVERY 4 HOURS PRN, Starting on Wed12/01/23 at 0630, Until Wed12/01/23 at 1344, Pain, Routine, DialysisIndications:ESRD (end stage renal disease) ([facility]) Given 12/01/2023 6:53 EST 650 mg calcium carbonate (TUMS) tablet 500 mg (200 mg elemental calcium) 2 Tablet 2 Tablet, oral, ONCE IN DIALYSIS, 1 dose, On Wed12/01/23 at 0645, Routine, DialysisIndications:ESRD (end stage renal disease) ([facility]),Secondary hyperparathyroidism ([facility]) Given 12/01/2023 6:53 EST 2 Tablets epoetin ken (EPOGEN) 20,000 unit/2 mL injection 1,000 Units 1,000 Units, intravenous, ONCE IN DIALYSIS, 1 dose, On Wed12/01/23 at 0645, Routine, DialysisIndications:ESRD (end stage renal disease) ([facility]),Anemia of chronic renal failure, unspecified CKD stage Given 12/01/2023 6:53 EST 1,000 Units heparin injection 9,000 Units 9,000 Units, intravenous, ONCE IN DIALYSIS, 1 dose, On Wed12/01/23 at 0645, Routine, Dialysis, Now x1 bolus 4500 units to be given at the beginning of dialysis 1500 units/hour to be given over the course of dialysis (9000 units total). Stop 1 hour prior to end of treatment. To be administered per Policy [id number].Indications:ESRD (end stage renal disease) ([facility]) Given 12/01/2023 6:53 EST 9,000 Units documented in this encounter Orders Dialysis Count Last Ordered Date First Orde red Date HEMODIALYSIS 1 12/01/2023 documented in this encounter Care Teams Professor Of Biological Sciences Relationship Specialty Start Date End Date [place] [address] PCP - General 07/07/23 documented as of this encounter
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
--- OUTSIDE RECORDS SUMMARY | 2024-12-05 12:14 | XMS_ITS | Encounter Summary ---
Author Organization [facility] Address [address] [place] [address] Care Team Providers Care Admittance Attendant Name Role Phone Ken Greer MD Primary Care Provider [phone] Encounter Details Date Type Department Care Team (Latest Contact Info) Description 11/22/2023 6:45 EST Treatment [facility] [address] [place], [place] [phone] Carlota Jin MD 1 [facility], Level 2 [place] [phone] ESRD (end stage renal disease) ([facility]) (Primary Dx); Anemia of chronic renal failure, unspecified CKD stage; Hypoalbuminemia; Secondary hyperparathyroidism ([facility]) Social History Tobacco Use Types [...] - Temperature - - Respiratory Rate 16 11/22/2023 0620 EST Oxygen Saturation - - Inhaled Oxygen Concentration - - Weight 91.9 kg (202 lb 9.6 oz) 11/22/[address] Height - - Body Mass Index 29.07 11/07/2023 0500 EST documented in this encounter [...] Flowsheet Note - Marcela Cox RN - 11/22/2023 1138 EST 11/22/23 1048 Post-Hemodialysis Assessment Total Blood Processed (L) 87.73 Liters On Line Clearance: spKt/V 1.4 spKt/V Dialyzer Clearance Lightly streaked Treatment UFR (ml:kg:hr) 12.02 ml:kg:hr Final Critline Profile (%/hr) -1.47 Final Profile Profile A Critline refill Negative (30.9-30.6) Fluid Removed (L) 4.5 L Post-Dialysis Scale Weight 87.6 kg (193 lb 2 oz) Wheelchair Weight 0 kg (0 lb) Prosthesis Weight 0 kg (0 lb) Post-Treatment Weight (kg) 87.6 Treatment Weight Change (kg) 4.3 kg Day Target Weight (kg) 87.9 Post Sitting/Lying BP 148/76 Post Sitting/Lying pulse 69 Temp 36.1 ??C (97 ??F) Temp src [...] 6:45 EST Treatment [facility] [address] [place], [place] [phone] Carlota Jin MD [address] [place] [address] 2 [place] [phone] 12/08/2024 6:45 EST Treatment [facility] [address] [place], [place] [phone] Carlota Jin MD [address] [place] [address], [facility] 2 [place] [phone] 12/11/2024 6:45 EST Treatment [facility] D[facility] [address] [place], [place] [phone] Carlota Jin MD [address] [place] [address], [facility] 2 [place] [phone] 12/13/2024 6:45 EST Treatment [facility] [address] [place], [place] [phone] Carlota Jin MD 1 [facility], [facility] 2 [place] [phone] 12/15/2024 6:45 EST Treatment [facility] - [place] [address] [place], [place] [phone] Carlota Jin MD 1 [facility], [facility] 2 [place] [phone] 12/18/2024 6:45 EST Treatment [facility] [place] [address] [place] [address] Carlota Jin MD 1 [facility], [address] [phone] 12/20/2024 6:45 EST Treatment [facility] [place] [address] [place], [place] [phone] Carlota Jin MD 1 [facility], [address] [phone] 12/22/2024 6:45 EST Treatment [facility] [place] [address] [place] [address] Carlota Jin MD 1 [facility], [facility] 2 [place] [phone] 12/25/2024 6:45 EST Treatment [facility] [place] [address] [place], [place] [phone] Carlota Jin MD 1 [facility], [facility] 2 [place] [phone] 12/27/2024 6:45 EST Treatment [facility] [place] [address] [place], [place] [phone] Carlota Jin MD 1 [facility], [facility] 2 [place] [phone] 12/29/2024 6:45 EST Treatment [facility] - [place] [address] [place], [place] [phone] Carlota Jin MD 1 [facility], [facility] 2 [place] [phone] 01/01/2025 6:45 EDT Treatment [facility] - [place] [address] [place], [place] [phone] Carlota Jin MD 1 [facility], [facility] 2 [place] [phone] 01/03/2025 6:45 EDT Treatment [facility] - [place] [address] [place], [place] [address] Carlota Jin MD 1 [facility], [facility] 2 [place] [phone] 01/05/2025 6:45 EDT Treatment [facility] [place] [address] [place], [place] [phone] Carlota Jin MD 1 [facility], [facility] 2 [place] [phone] 01/08/2025 6:45 EDT Treatment [facility] - [place] [address] [place] [id number] Carlota Jin MD 1 [facility], [facility] 2 [place] [phone] 01/10/2025 6:45 EDT Treatment [facility] [place] [address] [place], [place] [phone] Carlota Jin MD 1 [facility], [address] [phone] 01/12/2025 6:45 EDT Treatment [facility] - [place] [address] [place], [place] [phone] Carlota Jin MD 1 [facility], [address] [phone] 01/15/2025 6:45 EDT Treatment [facility] [place] [address] [place], [place] [phone] Carlota Jin MD 1 [facility], [address] [phone] 01/17/2025 6:45 EDT Treatment [facility] - [place] [address] [place], [place] [phone] Carlota Jin MD 1 [facility], [address] [phone] 01/19/2025 6:45 EDT Treatment [facility] [place] [address] [place], [place] [phone] Carlota Jin MD 1 [facility], [facility] 2 [place] [phone] 01/22/2025 6:45 EDT Treatment [facility] - [place] [address] [place], [place] [phone] Carlota Jin MD 1 [facility], [facility] 2 [place] [phone] 01/24/2025 6:45 EDT Treatment [facility] - [place] [address] [place], [place] [phone] Carlota Jin MD 1 [facility], [facility] 2 [place] [phone] 01/26/2025 6:45 EDT Treatment [facility] [place] [address] [place] [address] Carlota Jin MD 1 [facility], [facility] 2 [place] [phone] 01/29/2025 6:45 EDT Treatment [facility] - [place] [address] [place], [place] [id number] Carlota Jin MD 1 [facility], [facility] 2 [place] [phone] 01/31/2025 6:45 EDT Treatment [facility] - [place] [address] [place], [place] [phone] Carlota Jin MD 1 [facility], [facility] 2 [place] [phone] 02/02/2025 6:45 EDT Treatment [facility] [place] [address] [place], [place] [address] Carlota Jin MD 1 [facility], [facility] 2 [place] [phone] 02/05/2025 6:45 EDT Treatment [facility] - [place] [address] [place], [place] [phone] Carlota Jin MD 1 [facility], [facility] 2 [place] [phone] 02/07/2025 6:45 EDT Treatment [facility] - [place] [address] [place], [place] [phone] Carlota Jin MD 1 [facility], [facility] 2 [place] [phone] 02/09/2025 6:45 EDT Treatment [facility] - [place] [address] [place], [place] [phone] Carlota Jin MD 1 [facility], [address] [phone] 02/12/2025 6:45 EDT Treatment [facility] [place] [address] [place], [place] [phone] Carlota Jin MD 1 [facility], [facility] 2 [place] [phone] 02/14/2025 6:45 EDT Treatment [facility] [place] [address] [place], [place] [phone] Carlota Jin MD 1 [facility] [address] [phone] 02/16/2025 6:45 EDT Treatment [facility] [address] [place] [phone] Carlota Jin MD 1 [facility], [address] [phone] 02/19/2025 6:45 EDT Treatment [facility] [address] [place] [address] Carlota Jin MD [address] [phone] 02/21/2025 6:45 EDT Treatment [facility] [address] [place] [address] Carlota Jin MD [address] [place] [phone] documented as of this encounter Procedures Procedure Name Priority Date/Time Associated Diagnosis Comments HEMODIALYSIS Routine 11/22/2023 6:20 EST ESRD (end stage renal disease) ([facility]) documented in this encounter Visit Diagnoses Diagnosis ESRD (end stage renal disease) ([facility])- Primary End stage renal disease Anemia of chronic renal failure, unspecified CKD stage Hypoalbuminemia Other disorders of plasma protein metabolism Secondary hyperparathyroidism ([facility]) Secondary hyperparathyroidism (of renal origin) documented in this encounter Administered Medications Inactive Administered Medications - up to 3 most recent administrations Medication Order MAR Action Action Date Dose Rate Site calcium carbonate (TUMS) tablet 500 mg (200 mg elemental calcium) 2 Tablet 2 Tablet, oral, ONCE IN DIALYSIS, 1 dose, On Wed11/22/23 at 0645, Routine, DialysisIndications:ESRD (end stage renal disease) ([facility]),Secondary hyperparathyroidism ([facility]) Given 11/22/2023 6:39 EST 2 Tablets epoetin ken (EPOGEN) 20,000 unit/2 mL injection 1,000 Units 1,000 Units, intravenous, ONCE IN DIALYSIS, 1 dose, On Wed11/22/23 at 0645, Routine, DialysisIndications:ESRD (end stage renal disease) ([facility]),Anemia of chronic renal failure, unspecified CKD stage Given 11/22/2023 6:39 EST 1,000 Units heparin injection 9,000 Units 9,000 Units, intravenous, ONCE IN DIALYSIS, 1 dose, On Wed11/22/23 at 0645, Routine, Dialysis, Now x1 bolus 4500 units to be given at the beginning of dialysis 1500 units/hour to be given over the course of dialysis (9000 units total). Stop 1 hour prior to end of treatment. To be administered per Policy [id number].Indications:ESRD (end stage renal disease) ([facility]) Given 11/22/2023 6:39 EST 9,000 Units LiquaCel liquid protein liquid 30 mL 30 mL, oral, ONCE IN DIALYSIS, 1 dose, On Wed11/22/23 at 0645, RoutineIndications:ESRD (end stage renal disease) ([facility]),Hypoalbuminemia Given 11/22/2023 6:39 EST 30 mL documented in this encounter Orders Dialysis Count Last Ordered Date First Orde red Date HEMODIALYSIS 1 11/22/2023 documented in this encounter Care Teams Admittance Attendant Relationship Specialty Start Date End Date Ken Greer MD [address] [place] [address] PCP - General 07/07/23 documented as of this encounter
--- OUTSIDE RECORDS SUMMARY | 2024-12-05 12:14 | XMS_ITS | Encounter Summary ---
Author Organization [facility] Address [address] [place] [address] Care Team Providers Care Contact Agent Name Role Phone Ken Grere MD Primary Care Provider [phone] Encounter Details Date Type Department Care Team (Late st Contact Info) Description 11/22/2023 Documentation Visit [facility] Training & Support [address] [place] [address] Shelley Eden, RD [address] [place] [address] Social History Tobacco Use Types Packs/Day Years [...] Progress Notes * Shelley Eden, RD - 11/22/2023 1118 EST Dialysis Dietitian's Monthly Assessment Met with patient on 11/05/23 and phone call on 11/22/23 Family/caregivers or others present: lives with his Information obtained from: patient Recent Hospitalizations: 11/07-10/31/23 COVID and diabetic foot infection Subjective: Xander often is very sleepy and difficult to talk to at HD in addition he is hard of hearing. This month again he was really unable to answer any questions - very difficult to have any conversation . Emphasized taking binders with meals. F/u phone call with him and his - Xander went to the ER and ended up having foot wound infection - he said he is doing better and taking antibiotics. Discussed with him and his need for high protein intake - said they have protein powder athome and she will encourage use. We also discussed high phos level and concern for vascular issues - reinforced taking binder consistently Appetite: Good Appetite scale (0-10): No number given Gastrointestinal: Some nausea with antibiotic use Skin integrity: Burn wound on leg and foot infection Diabetes: Yes does not check on bld sugars Diabetes Management: Self Monitoring of Blood Glucose on insulin but does not check Diet Recall: B ham egg and cheese bfst s/w L ? D chili corn bread and rice Fluid: Water, Coffee, Milk, Juice Alcohol: will need to f/u Prescribed Weight:86.5 Post-Dialytic Weight: 87.6 11/12/2023 20:36 11/15/2023 21:17 11/17/2023 14:49 11/19/2023 10:44 11/22/2023 10:48 - ( Kg ) 89.4 92 89.2 87 87.6 UFR: 11/12/2023 20:36 11/15/2023 21:17 11/17/2023 14:49 11/19/2023 10:44 11/22/2023 10:48 - mL/Kg/hr 9.27 ml:kg:hr 6.41 ml:kg:hr 10.66 ml:kg:hr 11.77 ml:kg:hr 12.02 ml:kg:hr URR: 69.048 (Calculated from:; BUN Pre-Dialysis: 84 mg/dL at 10/27/2023 11:03; BUN Post-Dialysis: 26 mg/dL at 10/27/2023 11:03) Kt/V: 1.38 (Calculated from:; BUN Pre-Dialysis: 84 mg/dL at 10/27/2023 11:03; BUN Post-Dialysis: 26 mg/dL at 10/27/2023 11:03; Pre-Treatment Weight (kg): 90.6 at 10/27/2023 6:29; Post-Treatment Weight (kg): 87.6 at 10/27/2023 10:48; Duration of Treatment (minutes): 244 minutes at 10/27/2023 10:48) PCR: 1.42 (Calculated from:; BUN Pre-Dialysis: 84 mg/dL at 10/27/2023 11:03; BUN Post-Dialysis: 26 mg/dL at 10/27/2023 11:03; Pre-Treatment Weight (kg): 90.6 at 10/27/2023 6:29; Post-Treatment Weight (kg):87.6 at 10/27/2023 10:48; Duration of Treatment (minutes): 244 minutes at 10/27/2023 10:48; Age: 57 years) Pertinent Labs include: Lab Results Component Value Date LABALBU 3.1 (L) 10/27/2023 LABALBU 3.1 (L) 09/27/2023 Lab Results Component Value Date BUNPRE 84 (H) 10/27/2023 BUNPRE 84 (H) 10/27/2023 NA 131 (L) 11/10/2023 NA 138 11/09/2023 K 5.8 (H) 11/10/2023 K 5.2 (H) 11/09/2023 CL 96 11/10/2023 CL 97 11/09/2023 CO2 22 11/10/2023 CO2 28 11/09/2023 MG 2.5 10/27/2023 MG 2.1 09/27/2023 CALCIUM 7.5 (L) 11/10/2023 CALCIUM 8.0 (L) 11/09/2023 CALCCA 9.1 10/27/2023 CALCCA 9.0 09/27/2023 PHOS 9.8 (H) 11/08/2023 PHOS 8.5 (H) 10/27/2023 ALKPHOS 95 10/27/2023 ALKPHOS 104 09/27/2023 PTH 707 (H) 10/27/2023 PTH 484 (H) 07/26/2023 PLT 545 (H) 11/17/2023 PLT 323 11/12/2023 MCV 95 11/17/2023 MCV 97 (H) 11/12/2023 [id number] 607 10/27/2023 [id number] 688 11/16/2022 VITD 21 (L) 10/27/2023 VITD 27 (L) 11/16/2022 FOLATE >24.0 10/27/2023 FOLATE 17.3 11/16/2022 HGBA1C 11.6 (H) 11/07/2023 Protein/calorie supplements: liqaucel on HD days protein powder at home ([place]ain)- recmd to restart Renal/other vitamins: cholecalciferol (Vitamin D3) - 2000 IU daily MULTIVITAMIN ORAL Herbal/OTC supplements: None reported CKD/MBD medications: sevelamer hydrochloride - 2 with meals - has not been consistent 2 tums at HD Other Medications Relevant to Nutrition: atorvastatin - 40 mg This patient does not have an active medication from one of the medication groupers. sevelamer carbonate - 800 mg Levemir FlexPen insulin pen - 100 unit/mL (3 mL) Assessment Nutrition status / Adequacy of intake: Xander seems to have varied PO intake or does not report full intake - eating 1- 2 protein servings daily - albumin remains low r/t infection - will cont liquacel -have encouraged use of protein powder at home. We discussed adding more HBV protein sources in his diet. His wt has ranged from 86-88 kg since starting HD and his current BMI is at 28. He is well nourished in appearance and fairly highly functioning Weight/Volume status: fluid gains 2-4.9 UFR 0-13 Electrolytes: High k level - often- should consider adding lokelma to manage Na -low indicating fluid on Mg WNL Mineral Bone Disease: Ca WNL Phos high - encouraged to time binders with meals, revd high phos foods to limit - phos education sheet provided, on 2 tums at HD reinforced renvela at meals PTH WNL - no calcitriol Vitamin Status: B12 and folate WNL - will need to f/u on him getting started on renal vitamin- currently on MV D25 level low -on 2000 IU D3 [...] Treatment [facility] [address] [place], [place] [address] Carlota Jin MD 1 [facility], Level [address] [place] [phone] 12/08/2024 6:45 EST Treatment [facility] [address] [place], [place] [id number] Carlota Jin MD 1 [facility], [facility] [address] [place] [phone] 12/11/2024 6:45 EST Treatment [facility] [place] [address] [place], [place] [id number] Carlota Jin MD 1 [facility], [facility] [address] [place] [phone] 12/13/2024 6:45 EST Treatment [facility] [place] [address] [place] [address] Carlota Jin MD 1 [facility], [facility] [address] [place] [phone] 12/15/2024 6:45 EST Treatment [facility] - [place] [address] [place], [place] [id number] Carlota Jin MD 1 [facility], [address] [phone] 12/18/2024 6:45 EST Treatment [facility] - [place] [address] [place] [address] Carlota Jin MD 1 [facility], [facility] [address] [place] [phone] 12/20/2024 6:45 EST Treatment [facility] [place] [address] [place], [place] [id number] Carlota Jin MD 1 [facility], [facility] [address] [place] [phone] 12/22/2024 6:45 EST Treatment [facility] [place] [address] [place], [place] [id number] Carlota Jin MD 1 [facility], [facility] [address] [place] [phone] 12/25/2024 6:45 EST Treatment [facility] - [place] [address] [place], [place] [id number] Carlota Jin MD 1 [facility], [facility] [address] [place] [phone] 12/27/2024 6:45 EST Treatment [facility] [place] [address] [place], [place] [id number] Carlota Jin MD 1 [facility], [facility] [address] [place] [phone] 12/29/2024 6:45 EST Treatment [facility] [place] [address] [place], [place] [address] Carlota Jin MD 1 [facility], [facility] [address] [place] [phone] 01/01/2025 6:45 EDT Treatment [facility] [place] [address] [place], [place] [id number] Carlota Jin MD 1 [facility], [facility] [address] [place] [phone] 01/03/2025 6:45 EDT Treatment [facility] [place] [address] [place] [address] Carlota Jin MD 1 [facility], [facility] [address] [place] [phone] 01/05/2025 6:45 EDT Treatment [facility] [place] [address] [place] [address] Carlota Jin MD 1 [facility], [address] [phone] 01/08/2025 6:45 EDT Treatment [facility] - [place] [address] [place], [place] [id number] Carlota Jni MD 1 [facility], [address] [phone] 01/10/2025 6:45 EDT Treatment [facility] - [place] [address] [place], [place] [id number] Carlota Jin MD 1 [facility], [address] [phone] 01/12/2025 6:45 EDT Treatment [facility] - [place] [address] [place], [place] [id number] Carlota Jin MD 1 [facility], [address] [phone] 01/15/2025 6:45 EDT Treatment [facility] - [place] [address] [place], [place] [id number] Carlota Jin MD 1 [facility], [facility] [address] [place] [phone] 01/17/2025 6:45 EDT Treatment [facility] - [place] [address] [place], [place] [id number] Carlota Jin MD 1 [facility], [facility] [address] [place] [phone] 01/19/2025 6:45 EDT Treatment [facility] - [place] [address] [place], [place] [id number] Carlota Jin MD 1 [facility], [facility] [address] [place] [phone] 01/22/2025 6:45 EDT Treatment [facility] - [place] [address] [place], [place] [id number] Carlota Jin MD 1 [facility], [facility] [address] [place] [phone] 01/24/2025 6:45 EDT Treatment [facility] - [place] [address] [place], [place] [id number] Carlota Jin MD 1 [facility], [facility] [address] [place] [phone] 01/26/2025 6:45 EDT Treatment [facility] - [place] [address] [place], [place] [id number] Carlota Jin MD 1 [facility], [facility] [address] [place] [phone] 01/29/2025 6:45 EDT Treatment [facility] - [place] [address] [place], [place] [address] Carlota Jin MD 1 [facility], [facility] [address] [place] [phone] 01/31/2025 6:45 EDT Treatment [facility] [place] [address] [place], [place] [id number] Carlota Jin MD 1 [facility], [facility] [address] [place] [phone] 02/02/2025 6:45 EDT Treatment [facility] [place] [address] [place], [place] [id number] Carlota Jin MD 1 [facility], [facility] [address] [place] [phone] 02/05/2025 6:45 EDT Treatment [facility] - [place] [address] [place], [place] [id number] Carlota Jin MD 1 [facility], [address] [phone] 02/07/2025 6:45 EDT Treatment [facility] - [place] [address] [place], [place] [id number] Carlota Jin MD 1 [facility], [facility] [address] [place] [phone] 02/09/2025 6:45 EDT Treatment [facility] - [place] [address] [place], [place] [phone] Carlota Jin MD 1 [facility] [address] [place] [phone] 02/12/2025 6:45 EDT Treatment [facility] - [place] [address] [place], [place] [address] Carlota Jin MD 1 [facility], [facility] [address] [place] [phone] 02/14/2025 6:45 EDT Treatment [facility] - [place] [address] [place], [place] [phone] Carlota Jin MD 1 [facility], [facility] [address] [place] [phone] 02/16/2025 6:45 EDT Treatment [facility] - [place] [address] [place], [place] [id number] Carlota Jin MD 1 [facility], [facility] [address] [place] [phone] 02/19/2025 6:45 EDT Treatment [facility] - [place] [address] [place], [place] [phone] Carlota Jin MD 1 [facility], [facility] [address] [place] [phone] 02/21/2025 6:45 EDT Treatment [facility] [address] [place], [place] [phone] Carlota Jin MD 1 [facility], [facility] [address] [place] [phone] documented as of this encounter Visit Diagnoses Not on filedocumented in this encounter Care Teams Contact Agent Relationship Specialty Start Date End Date Ken Gre[place] [address] PCP - General 07/07/23 documented as of this encounter
--- OUTSIDE RECORDS SUMMARY | 2024-12-05 12:14 | XMS_ITS | Encounter Summary ---
Author Organization [facility] Address [address] [place] [address] Care Team Providers Care Pointing Machine Operator Name Role Phone Ken Greer MD Primary Care Provider [phone] Encounter Details Date Type Department Care Team (Latest Contact Info) Description 11/26/2023 6:45 EST Treatment [facility] [address] [place], [place] [id number] Carlota Jin MD 1 [facility], Level [address] [place] [phone] ESRD (end stage renal disease) ([facility]) (Primary Dx); Anemia of chronic renal failure, unspecified CKD stage; Hypoalbuminemia; Secondary hyperparathyroidism ([facility]) Social History Tobacco Use [...] - Temperature - - Respiratory Rate 16 11/26/2023 0623 EST Oxygen Saturation - - Inhaled Oxygen Concentration - - Weight 88.2 kg (194 lb 7.5 oz) 11/26/[address] Height - - Body [...] Flowsheet Note - Marcela Cox RN - 11/26/2023 1348 EST 11/26/23 1043 Post-Hemodialysis Assessment Total Blood Processed (L) 91.01 Liters On Line Clearance: spKt/V 1.44 spKt/V Dialyzer Clearance Lightly streaked Treatment UFR (ml:kg:hr) 5.8 ml:kg:hr Critline refill Not done Fluid Removed (L) 2.5 L Post-Dialysis Scale Weight 86.2 kg (190 lb 0.6 oz) Wheelchair Weight 0 kg (0 lb) Prosthesis Weight 0 kg (0 lb) Post-Treatment Weight (kg) 86.2 Treatment Weight Change (kg) 2 kg Day Target Weight (kg) 86.2 Post Sitting/Lying BP 165/85 Post Sitting/Lying pulse 71 Temp 36.6 ??C (97.9 ??F) Temp src Temporal Minutes Short -240 Post access assessment Bruit present: Yes Thrill Present AVF/AFG Hemostasis achieved Yes Note Patient held both site for 10mins with blue clamps Orientation Alert [...] 12/06/2024 6:45 EST Treatment [facility] [address] [place], [place] [id number] Carlota Jin MD [address] [place] [phone] 12/08/2024 6:45 EST Treatment [facility] [address] [place], [place] [id number] Carlota Jin MD [address] [place] [phone] 12/11/2024 6:45 EST Treatment [facility] [address] [place], [place] [id number] Carlota Jin MD [address] [place] [phone] 12/13/2024 6:45 EST Treatment [facility] [address] [place] [id number] Carlota Jin MD 1 [facility], [facility] 2 [place] [phone] 12/15/2024 6:45 EST Treatment [facility] [address] [place], [place] [id number] Carlota Jin MD 1 [facility], [facility] [address] [place] [phone] 12/18/2024 6:45 EST Treatment [facility] [address] [place], [place] [id number] Carlota Jin MD 1 [facility], [facility] [address] [place] [phone] 12/20/2024 6:45 EST Treatment [facility] [address] [place], [place] [id number] Carlota Jin MD 1 [facility], [facility] 2 [place] [phone] 12/22/2024 6:45 EST Treatment [facility] [address] [place], [place] [id number] Carlota Jin MD 1 [facility], [facility] [address] [place] [phone] 12/25/2024 6:45 EST Treatment [facility] [address] [place], [place] [id number] Carlota Jin MD 1 [facility], [facility] 2 [place] [phone] 12/27/2024 6:45 EST Treatment [facility] [address] [place], [place] [id number] Carlota Jin MD 1 [facility], [facility] 2 [place] [phone] 12/29/2024 6:45 EST Treatment [facility] [address] [place], [place] [id number] Carlota Jin MD 1 [facility], [facility] 2 [place] [phone] 01/01/2025 6:45 EDT Treatment [facility] [address] [place] [address] Carlota Jin MD 1 [facility], [address] [phone] 01/03/2025 6:45 EDT Treatment [facility] [address] [place], [place] [phone] Carlota Jin MD 1 [facility], [facility] 2 [place] [phone] 01/05/2025 6:45 EDT Treatment [facility] [address] [place], [place] [id number] Carlota Jin MD 1 [facility], [facility] 2 [place] [phone] 01/08/2025 6:45 EDT Treatment [facility] [address] [place], [place] [id number] Carlota Jin MD 1 [facility], [facility] 2 [place] [phone] 01/10/2025 6:45 EDT Treatment [facility] [address] [place] [address] Carlota Jin MD 1 [facility], [facility] 2 [place] [phone] 01/12/2025 6:45 EDT Treatment [facility] [address] [place] [address] Carlota Jin MD 1 [facility], [facility] 2 [place] [phone] 01/15/2025 6:45 EDT Treatment [facility] [address] [place] [address] Carlota Jin MD 1 [facility], [facility] 2 [place] [phone] 01/17/2025 6:45 EDT Treatment [facility] [address] [place] [address] Carlota Jin MD 1 [facility], [facility] 2 [place] [phone] 01/19/2025 6:45 EDT Treatment [facility] [address] [place], [place] [phone] Carlota Jin MD 1 [facility], [facility] 2 [place] [phone] 01/22/2025 6:45 EDT Treatment [facility] [address] [place], [place] [address] Carlota Jin MD 1 [facility], [facility] 2 [place] [phone] 01/24/2025 6:45 EDT Treatment [facility] [address] [place], [place] [phone] Carlota Jni MD 1 [facility], [facility] 2 [place] [phone] 01/26/2025 6:45 EDT Treatment [facility] [address] [place], [place] [phone] Carlota Jin MD 1 [facility], [facility] 2 [place] [phone] 01/29/2025 6:45 EDT Treatment [facility] [address] [place], [place] [address] Carlota Jin MD 1 [facility], [facility] 2 [place] [phone] 01/31/2025 6:45 EDT Treatment [facility] [address] [place], [place] [phone] Carlota Jin MD 1 [facility], [facility] 2 [place] [phone] 02/02/2025 6:45 EDT Treatment [facility] [address] [place], [place] [address] Carlota Jin MD 1 [facility], [facility] 2 [place] [phone] 02/05/2025 6:45 EDT Treatment [facility] [address] [place], [place] [phone] Carlota Jin MD 1 [facility], [address] [phone] 02/07/2025 6:45 EDT Treatment [facility] [address] [place], [place] [phone] Carlota Jin MD 1 [facility], [address] [phone] 02/09/2025 6:45 EDT Treatment [facility] [address] [place], [place] [phone] Carlota Jin MD [address] [phone] 02/12/2025 6:45 EDT Treatment [facility] [address] [place], [place] [phone] Carlota Jin MD [address] [phone] 02/14/2025 6:45 EDT Treatment [facility] [address] [place], [place] [phone] Carlota Jin MD 1 [facility], [address] [phone] 02/16/2025 6:45 EDT Treatment [facility] [address] [place] [address] Carlota Jin MD [address] [phone] 02/19/2025 6:45 EDT Treatment [facility] [address] [place] [address] Carlota Jin MD [address] [phone] 02/21/2025 6:45 EDT [facility] [address] [place], [place] [phone] Carlota Jin MD [address] [phone] documented as of this encounter Procedures Procedure Name Priority Date/Time Associated Diagnosis Comments HEMODIALYSIS Routine 11/26/2023 6:23 EST ESRD (end stage renal disease) ([facility]) documented in this encounter Visit Diagnoses Diagnosis ESRD (end stage renal disease) ([facility])- Primary End stage renal disease Anemia of chronic renal failure, unspecified CKD stage Hypoalbuminemia Other disorders of plasma protein metabolism Secondary hyperparathyroidism ([facility]) Secondary hyperparathyroidism (of renal origin) documented in this encounter Administered Medications Inactive Administered Medications - up to 3 most recent administrations Medication Order MAR Action Action Date Dose Rate Site calcium carbonate (TUMS) tablet 500 mg (200 mg elemental calcium) 2 Tablet 2 Tablet, oral, ONCE IN DIALYSIS, 1 dose, On Wed11/26/23 at 0645, Routine, DialysisIndications:ESRD (end stage renal disease) ([facility]),Secondary hyperparathyroidism ([facility]) Given 11/26/2023 6:51 EST 2 Tablets epoetin ken (EPOGEN) 20,000 unit/2 mL injection 1,000 Units 1,000 Units, intravenous, ONCE IN DIALYSIS, 1 dose, On Wed11/26/23 at 0645, Routine, DialysisIndications:ESRD (end stage renal disease) ([facility]),Anemia of chronic renal failure, unspecified CKD stage Given 11/26/2023 6:51 EST 1,000 Units heparin injection 9,000 Units 9,000 Units, intravenous, ONCE IN DIALYSIS, 1 dose, On Wed11/26/23 at 0645, Routine, Dialysis, Now x1 bolus 4500 units to be given at the beginning of dialysis 1500 units/hour to be given over the course of dialysis (9000 units total). Stop 1 hour prior to end of treatment. To be administered per Policy [id number].Indications:ESRD (end stage renal disease) ([facility]) Given 11/26/2023 6:52 EST 9,000 Units LiquaCel liquid protein liquid 30 mL 30 mL, oral, ONCE IN DIALYSIS, 1 dose, On Wed11/26/23 at 0645, RoutineIndications:ESRD (end stage renal disease) ([facility]),Hypoalbuminemia Given 11/26/2023 6:52 EST 30 mL documented in this encounter Orders Dialysis Count Last Ordered Date First Orde red Date HEMODIALYSIS 1 11/26/2023 documented in this encounter Care Teams Pointing Machine Operator Relationship Specialty Start Date End Date Ken Greer MD [address] [place] [address] PCP - General 07/07/23 documented as of this encounter
--- OUTSIDE RECORDS SUMMARY | 2024-12-05 12:14 | XMS_ITS | Encounter Summary ---
Author Organization [facility] Address [address] [place] [address] Care Team Providers Care Quiller Runner Name Role Phone Ken Greer MD Primary Care Provider [phone] Encounter Details Date Type Department Care Team (Latest Contact Info) Description 11/17/2023 6:45 EST Treatment [facility] [address] [place], [place] [id number] Carlota Jin MD 1 [facility], Level 2 [place] [phone] ESRD (end stage renal disease) ([facility]) (Primary Dx); Anemia of chronic renal failure, unspecified CKD stage; Hypoalbuminemia; Secondary hyperparathyroidism ([facility]) Social History Tobacco Use Types Packs/Day [...] - Temperature - - Respiratory Rate 16 11/17/2023 0757 EST Oxygen Saturation - - Inhaled Oxygen Concentration - - Weight 93.1 kg (205 lb 4 oz) 11/17/2023 0753 EST Height - - Body Mass Index 29.45 11/07/2023 0500 EST documented in this encounter [...] Flowsheet Note - Marcela Cox RN - 11/17/2023 1455 EST 11/17/23 1449 Post-Hemodialysis Assessment Total Blood Processed (L) 90.93 Liters On Line Clearance: spKt/V 1.31 spKt/V Dialyzer Clearance Lightly streaked Treatment UFR (ml:kg:hr) 10.66 ml:kg:hr Final Critline Profile (%/hr) -2.8 Final Profile Profile A Critline refill Positive (31.5-32.0) Fluid Removed (L) 3.99 L Post-Dialysis Scale Weight 89.2 kg (196 lb 10.4 oz) Wheelchair Weight 0 kg (0 lb) Prosthesis Weight 0 kg (0 lb) Post-Treatment Weight (kg) 89.2 Treatment Weight Change (kg) 3.9 kg Day Target Weight (kg) 89.6 Post Sitting/Lying BP 157/82 Post Sitting/Lying pulse 75 Temp 36.3 ??C (97.3 ??F) Temp src Temporal Post access assessment AVF/AFG Hemostasis achieved Yes Note 8 minute hold both sites Orientation Alert and Oriented x3 Yes Time Yes Place Yes Person Yes Cooperative Yes Disoriented No Discharge Ambulation Methods Ambulatory with assistive device Ambulation device Cane Wrap up items Patient Response to Treatment Tolerated tx well. Removed 4L UF goal without difficulty. Comments No issues during tx, no concerns voiced post tx. * Dialysis Rounding - Skye Gomez NP - 11/17/2023 0645 EST Dialysis Provider's Routine Assessment The visit was conducted via telehealth (audio/video) between the [facility] dialysis unit and the provider from their Home Office. The interaction was assisted by [employer]. The patient has no complaints and no [...] copays, deductible or coinsurance for this service. Gerson Becky Bruner was seen and examined as appropriate during Dialysis. Pertinent lab results were reviewed. Changes since last visit: None Changes to current prescriptions/orders: None Pt returns to his home unit after a hospitalization for diabetic foot infection and COVID+; he is well above his TW, we will work on challenging. Skye Gomez NP documented in this encounter Plan of Treatment Upcoming Encounters Date Type Department Care Team (Late st Contact Info) Description 12/06/2024 6:45 EST Treatment [facility] [place] [address] [place], [place] [id number] Carlota Jin MD 1 [facility], [facility] 2 [place] [phone] 12/08/2024 6:45 EST Treatment [facility] [place] [address] [place], [place] [phone] Carlota Jin MD 1 [facility], [address] [phone] 12/11/2024 6:45 EST Treatment [facility] [place] [address] [place], [place] [phone] Carlota Jin MD 1 [facility], [facility] 2 [place] [phone] 12/13/2024 6:45 EST Treatment [facility] [place] [address] [place], [place] [phone] Carlota Jin MD 1 [facility], [facility] 2 [place] [phone] 12/15/2024 6:45 EST Treatment [facility] [address] [place], [place] [phone] Carlota Jin MD 1 [facility], [facility] 2 [place] [phone] 12/18/2024 6:45 EST Treatment [facility] [place] [address] [place], [place] [phone] Carlota Jin MD 1 [facility], [facility] 2 [place] [phone] 12/20/2024 6:45 EST Treatment [facility] [place] [address] [place], [place] [phone] Carlota Jin MD 1 [facility], [facility] 2 [place] [phone] 12/22/2024 6:45 EST Treatment [facility] [place] [address] [place], [place] [phone] Carlota Jin MD 1 [facility], [facility] 2 [place] [phone] 12/25/2024 6:45 EST Treatment [facility] [address] [place], [place] [phone] Carlota Jin MD 1 [facility], [address] [phone] 12/27/2024 6:45 EST Treatment [facility] [address] [place], [place] [phone] Carlota Jin MD 1 [facility], [facility] 2 [place] [phone] 12/29/2024 6:45 EST Treatment [facility] [address] [place], [place] [phone] Carlota Jin MD 1 [facility], [facility] 2 [place] [phone] 01/01/2025 6:45 EDT Treatment [facility] [place] [address] [place], [place] [phone] Carlota Jin MD 1 [facility], [facility] 2 [place] [phone] 01/03/2025 6:45 EDT Treatment [facility] [place] [address] [place], [place] [phone] Carlota Jin MD 1 [facility], [facility] 2 [place] [phone] 01/05/2025 6:45 EDT Treatment [facility] [place] [address] [place], [place] [phone] Carlota Jin MD 1 [facility], [address] [phone] 01/08/2025 6:45 EDT Treatment [facility] [place] [address] [place], [place] [phone] Carlota Jin MD 1 [facility], [facility] 2 [place] [phone] 01/10/2025 6:45 EDT Treatment [facility] [place] [address] [place], [place] [phone] Carlota Jin MD 1 [facility], [facility] 2 [place] [phone] 01/12/2025 6:45 EDT Treatment [facility] [place] [address] [place], [place] [phone] Carlota Jin MD 1 [facility], [facility] 2 [place] [phone] 01/15/2025 6:45 EDT Treatment [facility] [place] [address] [place], [place] [phone] Carlota Jin MD 1 [facility], [facility] 2 [place] [phone] 01/17/2025 6:45 EDT Treatment [facility] [place] [address] [place], [place] [id number] Carlota Jin MD 1 [facility], [address] [phone] 01/19/2025 6:45 EDT Treatment [facility] [place] [address] [place], [place] [phone] Carlota Jin MD 1 [facility], [address] [phone] 01/22/2025 6:45 EDT Treatment [facility] [place] [address] [place], [place] [phone] Carlota Jin MD 1 [facility], [facility] 2 [place] [phone] 01/24/2025 6:45 EDT Treatment [facility] [place] [address] [place], [place] [phone] Carlota Jin MD 1 [facility], Level [address] [place] [phone] 01/26/2025 6:45 EDT Treatment [facility] [place] [address] [place], [place] [phone] Carlota Jin MD 1 [facility], [facility] 2 [place] [phone] 01/29/2025 6:45 EDT Treatment [facility] [place] [address] [place], [place] [phone] Carlota Jin MD 1 [facility], [facility] 2 [place] [phone] 01/31/2025 6:45 EDT Treatment [facility] [place] [address] [place], [place] [phone] Carlota Jin MD 1 [facility], [facility] 2 [place] [phone] 02/02/2025 6:45 EDT Treatment [facility] [place] [address] [place] [address] Carlota Jin MD 1 [facility], [facility] 2 [place] [phone] 02/05/2025 6:45 EDT Treatment [facility] [place] [address] [place], [place] [phone] Carlota Jin MD 1 [facility], [facility] 2 [place] [phone] 02/07/2025 6:45 EDT Treatment [facility] [place] [address] [place], [place] [phone] Carlota Jin MD 1 [facility], [facility] 2 [place] [phone] 02/09/2025 6:45 EDT Treatment [facility] [place] [address] [place], [place] [phone] Carlota Jin MD 1 [facility], [facility] 2 [place] [phone] 02/12/2025 6:45 EDT Treatment [facility] [place] [address] [place] [address] Carlota Jin MD [address] [place] [address], [facility] 2 [place] [phone] 02/14/2025 6:45 EDT Treatment [facility] [place] [address] [place], [place] [phone] Carlota Jni MD [address] [place] [address], [facility] 2 [place] [phone] 02/16/2025 6:45 EDT Treatment [facility] [place] [address] [place], [place] [phone] Carlota Jin MD 1 [facility], [facility] 2 [place] [phone] 02/19/2025 6:45 EDT Treatment [facility] [place] [address] [place], [place] [phone] Carlota Jin MD 1 [facility], Level [address] [place] [phone] 02/21/2025 6:45 EDT Treatment [facility] [place] [address] [place], [place] [phone] Carlota Jin MD 1 [facility], Level [address] [place] [phone] documented as of this encounter Procedures Procedure Name Priority Date/Time Associated Diagnosis Comments COMPLETE BLOOD COUNT Routine 11/17/2023 8:07 EST ESRD (end stage renal disease) ([facility]) HEMODIALYSIS Routine 11/17/2023 7:57 EST ESRD (end stage renal disease) ([facility]) documented in this encounter Results * (ABNORMAL) COMPLETE BLOOD COUNT (11/17/2023 8:07 EST) WBC 11.63(H) 4.00 - 10.40 K/cmm 11/17/2023 21:10 [facility] RBC 3.15(L) 4.36 - 5.78 M/cmm 11/17/2023 21:10 [facility] Hemoglobin 9.7(L) 13.8 - 17.3 g/dL 11/17/2023 21:10 [facility] HCT 29.8(L) 39.5 - 50.2 % 11/17/2023 21:10 [facility] MCV 95 81 - 95 fL 11/17/2023 21:10 [facility] MCH 30.8 27.6 - 33.0 pg 11/17/2023 21:10 [facility] MCHC 32.6(L) 32.8 - 36.4 g/dL 11/17/2023 21:10 [facility] RDW-CV 12.3 <14.2 % 11/17/2023 21:10 [facility] RDW-SD 42.6 <46.0 fl 11/17/2023 21:10 EST [facility] PLT 545(H) 141 - 377 K/cmm 11/17/2023 21:10 EST [facility] MPV 11.8 9.5 - 12.7 fL 11/17/2023 21:10 EST [facility] Blood VENOUS BLOOD / Unknown Venipuncture / Unknown 11/17/2023 8:07 EST 11/17/2023 8:07 EST Skye Gomez NP HEMATOLOGY & PF4 ORDERABLES Final Result Performing Organization Address City/State/[facility] Co de Phone Number [facility] [address] [place] [address] documented in this encounter Visit Diagnoses Diagnosis ESRD (end stage renal disease) ([facility])- Primary End stage renal disease Anemia of chronic renal failure, unspecified CKD stage Hypoalbuminemia Other disorders of plasma protein metabolism Secondary hyperparathyroidism ([facility]) Secondary hyperparathyroidism (of renal origin) documented in this encounter Administered Medications Inactive Administered Medications - up to 3 most recent administrations Medication Order MAR Action Action Date Dose Rate Site calcium carbonate (TUMS) tablet 500 mg (200 mg elemental calcium) 2 Tablet 2 Tablet, oral, ONCE IN DIALYSIS, 1 dose, On Wed11/17/23 at 0815, Routine, DialysisIndications:ESRD (end stage renal disease) ([facility]),Secondary hyperparathyroidism ([facility]) Given 11/17/2023 8:33 EST 2 Tablets epoetin ken (EPOGEN) 20,000 unit/2 mL injection 1,000 Units 1,000 Units, intravenous, ONCE IN DIALYSIS, 1 dose, On Wed11/17/23 at 0815, Routine, DialysisIndications:ESRD (end stage renal disease) ([facility]),Anemia of chronic renal failure, unspecified CKD stage Given 11/17/2023 8:33 EST 1,000 Units heparin injection 9,000 Units 9,000 Units, intravenous, ONCE IN DIALYSIS, 1 dose, On Wed11/17/23 at 0815, Routine, Dialysis, Now x1 bolus 4500 units to be given at the beginning of dialysis 1500 units/hour to be given over the course of dialysis (9000 units total). Stop 1 hour prior to end of treatment. To be administered per Policy [id number].Indications:ESRD (end stage renal disease) ([facility]) Given 11/17/2023 8:33 EST 9,000 Units LiquaCel liquid protein liquid 30 mL 30 mL, oral, ONCE IN DIALYSIS, 1 dose, On Wed11/17/23 at 0815, RoutineIndications:ESRD (end stage renal disease) ([facility]),Hypoalbuminemia Given 11/17/2023 8:33 EST 30 mL documented in this encounter Orders Dialysis Count Last Ordered Date First Orde red Date HEMODIALYSIS 1 11/17/2023 documented in this encounter Additional Health Concerns Infection Onset Date Last Indicated Resolved Time COVID-19 Comment:COVID+ 11/05/23 [place] (see scan) 11/08/2023 11/08/2023 11/17/2023 13:58 EST documented as of this encounter Care Teams Quiller Runner Relationship Specialty Start Date End Date Ken Greer MD [facility] [place] [address] PCP - General 07/07/23 documented as of this encounter
--- OUTSIDE RECORDS SUMMARY | 2024-12-05 12:14 | XMS_ITS | Encounter Summary ---
Author Organization [facility] Address [address] [place] [address] Care Team Providers Care Track Dresser Name Role Phone Ken Greer MD Primary Care Provider [phone] Encounter Details Date Type Department Care Team (Latest Contact Info) Description 11/29/2023 6:45 EST Treatment [facility] [address] [place], [place] [phone] Carlota Jin MD 1 [facility], Level [address] [place] [address] ESRD (end stage renal disease) ([facility]) (Primary Dx); Anemia of chronic renal failure, unspecified CKD stage; Hypoalbuminemia; Secondary hyperparathyroidism ([facility]) Social History Tobacco Use Types [...] - Temperature - - Respiratory Rate 16 11/29/2023 0624 EST Oxygen Saturation - - Inhaled Oxygen Concentration - - Weight 92.7 kg (204 lb 5.9 oz) 11/29/[address] Height - - Body Mass Index 29.32 11/07/2023 0500 EST documented in this encounter [...] Flowsheet Note - Marcela Cox RN - 11/29/2023 1320 EST 11/29/23 1051 Post-Hemodialysis Assessment Total Blood Processed (L) 90.57 Liters On Line Clearance: spKt/V 1.52 spKt/V Dialyzer Clearance Lightly streaked Treatment UFR (ml:kg:hr) 11.82 ml:kg:hr Final Critline Profile (%/hr) -1.77 Final Profile Profile A Critline refill Positive (29.7/30.4) Fluid Removed (L) 4.5 L Post-Dialysis Scale Weight 88.5 kg (195 lb 1.7 oz) Wheelchair Weight 0 kg (0 lb) Prosthesis Weight 0 kg (0 lb) Post-Treatment Weight (kg) 88.5 Treatment Weight Change (kg) 4.2 kg Day Target Weight (kg) 88.7 Post Sitting/Lying BP 151/81 Post Sitting/Lying pulse 69 Temp 36.6 ??C [...] Treatment [facility] [address] [place], [place] [id number] Carlota Jin MD 1 [facility], [facility] 2 [place] [phone] 12/08/2024 6:45 EST Treatment [facility] [address] [place] [address] Carlota Jin MD 1 [facility], [facility] 2 [place] [phone] 12/11/2024 6:45 EST Treatment [facility] [address] [place], [place] [phone] Carlota Jin MD 1 [facility], [facility] 2 [place] [phone] 12/13/2024 6:45 EST Treatment [facility] [address] [place] [address] Carlota Jin MD 1 [facility], [facility] 2 [place] [phone] 12/15/2024 6:45 EST Treatment [facility] [place] [address] [place], [place] [phone] Carlota Jin MD 1 [facility], [facility] 2 [place] [phone] 12/18/2024 6:45 EST Treatment [facility] [place] [address] [place], [place] [phone] Carlota Jin MD 1 [facility], [facility] 2 [place] [phone] 12/20/2024 6:45 EST Treatment [facility] [place] [address] [place], [place] [phone] Carlota Jin MD 1 [facility], [facility] 2 [place] [phone] 12/22/2024 6:45 EST Treatment [facility] [place] [address] [place], [place] [phone] Carlota Jin MD 1 [facility], [facility] 2 [place] [phone] 12/25/2024 6:45 EST Treatment [facility] [place] [address] [place], [place] [id number] Carlota Jin MD 1 [facility], [facility] 2 [place] [phone] 12/27/2024 6:45 EST Treatment [facility] [place] [address] [place], [place] [address] Carlota Jin MD 1 [facility], [facility] 2 [place] [phone] 12/29/2024 6:45 EST Treatment [facility] [place] [address] [place] [address] Carlota Jin MD 1 [facility], [facility] 2 [place] [phone] 01/01/2025 6:45 EDT Treatment [facility] [place] [address] [place], [place] [address] [phone] Carlota Jin MD 1 [facility], [facility] 2 [place] [phone] 01/03/2025 6:45 EDT Treatment [facility] [place] [address] [place] [address] Carlota Jin MD 1 [facility], [facility] 2 [place] [phone] 01/05/2025 6:45 EDT Treatment [facility] [place] [address] [place], [place] [id number] Carlota Jin MD 1 [facility], [facility] 2 [place] [phone] 01/08/2025 6:45 EDT Treatment [facility] [place] [address] [place], [place] [address] Carlota Jin MD 1 [facility], [address] [phone] 01/10/2025 6:45 EDT Treatment [facility] [place] [address] [place] [address] Carlota Jin MD 1 [facility], [address] [phone] 01/12/2025 6:45 EDT Treatment [facility] [place] [address] [place], [place] [id number] Carlota Jin MD 1 [facility], [address] [phone] 01/15/2025 6:45 EDT Treatment [facility] [place] [address] [place], [place] [phone] Carlota Jin MD [address] [phone] 01/17/2025 6:45 EDT Treatment [facility] [place] [address] [place], [place] [phone] Carlota Jin MD [address] [phone] 01/19/2025 6:45 EDT Treatment [facility] [place] [address] [place], [place] [phone] Carlota Jin MD 1 [facility], [facility] 2 [place] [phone] 01/22/2025 6:45 EDT Treatment [facility] [place] [address] [place], [place] [phone] Carlota Jin MD 1 [facility], [facility] 2 [place] [phone] 01/24/2025 6:45 EDT Treatment [facility] [place] [address] [place], [place] [phone] Carlota Jin MD 1 [facility], [facility] 2 [place] [phone] 01/26/2025 6:45 EDT Treatment [facility] [place] [address] [place], [place] [phone] Carlota Jin MD 1 [facility], [facility] 2 [place] [phone] 01/29/2025 6:45 EDT Treatment [facility] [place] [address] [place], [place] [phone] Carlota Jin MD 1 [facility], [facility] 2 [place] [phone] 01/31/2025 6:45 EDT Treatment [facility] [place] [address] [place], [place] [id number] Carlota Jin MD 1 [facility], [facility] 2 [place] [phone] 02/02/2025 6:45 EDT Treatment [facility] [place] [address] [place], [place] [phone] Carlota Jin MD 1 [facility], [facility] 2 [place] [phone] 02/05/2025 6:45 EDT Treatment [facility] [place] [address] [place], [place] [id number] Carlota Jin MD 1 [facility], [facility] 2 [place] [phone] 02/07/2025 6:45 EDT Treatment [facility] [place] [address] [place], [place] [phone] Carlota Jin MD 1 [facility], [address] [phone] 02/09/2025 6:45 EDT Treatment [facility] [place] [address] [place], [place] [phone] Carlota Jin MD 1 [facility], [address] [phone] 02/12/2025 6:45 EDT Treatment [facility] [place] [address] [place], [place] [phone] Carlota Jin MD 1 [facility], [facility] 2 [place] [phone] 02/14/2025 6:45 EDT Treatment [facility] [place] [address] [place], [place] [phone] Carlota Jin MD 1 [facility], [address] [place] [phone] 02/16/2025 6:45 EDT Treatment [facility] [place] [address] [place], [place] [phone] Carlota Jin MD 1 [facility], [facility] 2 [place] [phone] 02/19/2025 6:45 EDT Treatment [facility] [place] [address] [place], [place] [phone] Carlota Jin MD 1 [facility], [facility] 2 [place] [phone] 02/21/2025 6:45 EDT Treatment [facility] [place] [address] [place], [place] [phone] Carlota Jin MD 1 [facility], [facility] 2 [place] [phone] documented as of this encounter Procedures Procedure Name Priority Date/Time Associated Diagnosis Comments POSTDIALYSIS BUN WITH URR CALCULATION Routine 11/29/2023 11:12 EST ESRD (end stage renal disease) ([facility]) TRANSFERRIN SATURATION Routine 11/29/2023 6:36 EST ESRD (end stage renal disease) ([facility]) DIALYSIS ROUTINE - DIALYSIS ONLY (BUN, K, NA, CL, CO2, SANJEEV, ALB, MG, PHOS, ALKP, AST) Routine 11/29/2023 6:36 EST ESRD (end stage renal disease) ([facility]) PROFILE IRON STUDIES (INCLUDES IRON, IBC, AND FERRITIN) Routine 11/29/2023 6:36 EST ESRD (end stage renal disease) ([facility]) FERRITIN Routine 11/29/2023 6:36 EST ESRD (end stage renal disease) ([facility]) HEMODIALYSIS Routine 11/29/2023 6:24 EST ESRD (end stage renal disease) ([facility]) documented in this encounter Results * (ABNORMAL) POSTDIALYSIS BUN WITH URR CALCULATION (11/29/2023 11:12 EST) BUN, Postdialysis 26 10 - 26 mg/dL 11/29/2023 21:41 EST [facility] Urea Reduction Rate 64.9 Not Established % 11/29/2023 21:41 [facility] Comment: NOTE: Reference range not established for Urea Reduction Rate. BUN 74(H) 10 - 26 mg/dL 11/29/2023 21:41 EST [facility] Blood VENOUS BLOOD / Unknown Venipuncture / Unknown 11/29/2023 11:12 EST 11/29/2023 11:12 EST Skye Gomez DIRECT ENTRY MIDWIFE CHEMISTRY & BLOOD GAS ORDER FRANSISCO Final Result Performing Organization Address [facility] Co de Phone Number [facility] [address] [place] [address] * (ABNORMAL) FERRITIN (11/29/2023 6:36 EST) Ferritin 694(H) 22 - 322 ng/mL 11/30/2023 8:56 EST [facility] Blood VENOUS BLOOD / Unknown Venipuncture / Unknown 11/29/2023 6:36 EST 11/29/2023 6:36 EST Skye Gomez DIRECT ENTRY MIDWIFE CHEMISTRY & BLOOD GAS ORDER FRANSISCO Final Result Performing Organization Address City/[facility]/ZIP Co de Phone Number [facility] [address] [place] [address] * (ABNORMAL) TRANSFERRIN SATURATION (11/29/2023 6:36 EST) Iron 58 49 - 181 ??g/dL 11/29/2023 21:51 [facility] Iron Binding Capacity 205(L) 240 - 450 ??g/dL 11/29/2023 21:51 [facility] Transferrin Saturation 28 15 - 45 % 11/29/2023 21:51 [facility] Blood VENOUS BLOOD / Unknown Venipuncture / Unknown 11/29/2023 6:36 EST 11/29/2023 6:36 EST Skye Gomez DIRECT ENTRY MIDWIFE CHEMISTRY & BLOOD GAS ORDER FRANSISCO Final Result [facility] [address] [place] [address] * (ABNORMAL) DIALYSIS ROUTINE - DIALYSIS ONLY (BUN, K, NA, CL, CO2, SANJEEV, ALB, MG, PHOS, ALKP, AST) (11/29/2023 6:36 EST) Sodium 131(L) 136 - 145 mmol/L 11/29/2023 21:40 [facility] Potassium 5.9(H) 3.5 - 5.0 mmol/L 11/29/2023 21:40 [facility] Chloride 99 96 - 110 mmol/L 11/29/2023 21:40 [facility] CO2 Total 19(L) 22 - 32 mmol/L 11/29/2023 21:40 [facility] Calcium 8.4(L) 8.5 - 10.5 mg/dL 11/29/2023 21:40 [facility] Albumin 2.9(L) 3.4 - 4.9 g/dL 11/29/2023 21:40 [facility] Phosphorus 7.4(H) 2.5 - 4.5 mg/dL 11/29/2023 21:40 [facility] Calcium Phos Product 62.2 See Note mg/dL 11/29/2023 21:40 [facility] Comment: NOTE: Reference range not established BUN, Predialysis 74(H) 10 - 26 mg/dL 11/29/2023 21:40 [facility] AST 16 15 - 46 U/L 11/29/2023 21:40 [facility] Alkaline Phosphatase 106 38 - 126 U/L 11/29/2023 21:40 [facility] Magnesium 2.1 1.7 - 2.8 mg/dL 11/29/2023 21:40 [facility] Anion Gap 13 5 - 14 mmol/L 11/29/2023 21:40 [facility] Calculated Calcium 9.3 8.9 - 10.5 mg/dL 11/29/2023 21:40 [facility] Blood VENOUS BLOOD / Unknown Venipuncture / Unknown 11/29/2023 6:36 EST 11/29/2023 6:36 EST us Skye Gomez NP CHEMISTRY & BLOOD GAS ORDER FRANSISCO Final Result [facility] [address] [place] [address] documented in this encounter Visit Diagnoses Diagnosis ESRD (end stage renal disease) ([facility])- Primary End stage renal disease Anemia of chronic renal failure, unspecified CKD stage Hypoalbuminemia Other disorders of plasma protein metabolism Secondary hyperparathyroidism ([facility]) Secondary hyperparathyroidism (of renal origin) documented in this encounter Administered Medications Inactive Administered Medications - up to 3 most recent administrations Medication Order MAR Action Action Date Dose Rate Site acetaminophen (TYLENOL) tablet 650 mg 650 mg, oral, EVERY 4 HOURS PRN, Starting on Wed11/29/23 at 0631, Until Wed11/29/23 at 1520, Pain, Routine, DialysisIndications:ESRD (end stage renal disease) ([facility]) Given 11/29/2023 6:55 EST 650 mg calcium carbonate (TUMS) tablet 500 mg (200 mg elemental calcium) 2 Tablet 2 Tablet, oral, ONCE IN DIALYSIS, 1 dose, On Wed11/29/23 at 0645, Routine, DialysisIndications:ESRD (end stage renal disease) ([facility]),Secondary hyperparathyroidism ([facility]) Given 11/29/2023 6:55 EST 2 Tablets epoetin ken (EPOGEN) 20,000 unit/2 mL injection 1,000 Units 1,000 Units, intravenous, ONCE IN DIALYSIS, 1 dose, On Wed11/29/23 at 0645, Routine, DialysisIndications:ESRD (end stage renal disease) ([facility]),Anemia of chronic renal failure, unspecified CKD stage Given 11/29/2023 6:55 EST 1,000 Units heparin injection 9,000 Units 9,000 Units, intravenous, ONCE IN DIALYSIS, 1 dose, On 11/29/23 at 0645, Routine, Dialysis, Now x1 bolus 4500 units to be given at the beginning of dialysis 1500 units/hour to be given over the course of dialysis (9000 units total). Stop 1 hour prior to end of treatment. To be administered per Policy [id number].Indications:ESRD (end stage renal disease) ([facility]) Given 11/29/2023 6:55 EST 9,000 Units LiquaCel liquid protein liquid 30 mL 30 mL, oral, ONCE IN DIALYSIS, 1 dose, On Wed11/29/23 at 0645, RoutineIndications:ESRD (end stage renal disease) ([facility]),Hypoalbuminemia Given 11/29/2023 6:55 EST 30 mL documented in this encounter Orders Dialysis Count Last Ordered Date First Orde red Date HEMODIALYSIS 1 11/29/2023 documented in this encounter Care Teams Track Dresser Relationship Specialty Start Date End Date Ken Greer MD [address] [place] [address] PCP - General 07/07/23 documented as of this encounter
--- OUTSIDE RECORDS SUMMARY | 2024-12-05 12:14 | XMS_ITS | Encounter Summary ---
Author Organization [facility] Address [address] [place] [address] Care Team Providers Care Barn Worker Name Role Phone Ken Greer MD Primary Care Provider [phone] Encounter Details Date Type Department Care Team (Late st Contact Info) Description 11/30/2023 Documentation Visit [address] [phone] Skye Gomez NP 1 [facility], Level 2 [place] [address] Social History Tobacco Use Types [...] Progress Notes * Skye Gomez NP - 11/30/2023 1121 EST Dialyzer increased to a 250 MR documented in this encounter Plan of Treatment Upcoming Encounters Date Type Department Care Team (Late st Contact Info) Description 12/06/2024 6:45 EST Treatment [facility] [place] [address] [place], [place] [address] Carlota Jin MD [address] [place], [place] [address], [facility] 2 [place] [address] 12/08/2024 6:45 EST Treatment [facility] [place] [address] [place], [place] [id number] Carlota Jin MD [address] [place] [address], [facility] 2 [place] [phone] 12/11/2024 6:45 EST Treatment [facility] [place] [address] [place], [place] [address] Carlota Jin MD 1 [facility], [facility] 2 [place] [phone] 12/13/2024 6:45 EST Treatment [facility] [place] [address] [place] [address] Carlota Jin MD 1 [facility], [facility] 2 [place] [phone] 12/15/2024 6:45 EST Treatment [facility] [place] [address] [place], [place] [id number] Carlota Jin MD 1 [facility], [address] [phone] 12/18/2024 6:45 EST Treatment [facility] [place] [address] [place], [place] [id number] Carlota Jin MD 1 [facility], [address] [phone] 12/20/2024 6:45 EST Treatment [facility] [place] [address] [place], [place] [id number] Carlota Jin MD 1 [facility], [facility] 2 [place] [phone] 12/22/2024 6:45 EST Treatment [facility] [place] [address] [place], [place] [id number] Carlota Jin MD 1 [facility], [facility] 2 [place] [phone] 12/25/2024 6:45 EST Treatment [facility] [place] [address] [place], [place] [id number] Carlota Jin MD 1 [facility], [facility] 2 [place] [phone] 12/27/2024 6:45 EST Treatment [facility] [place] [address] [place], [place] [id number] Carlota Jin MD 1 [facility], [facility] 2 [place] [phone] 12/29/2024 6:45 EST Treatment [facility] [place] [address] [place] [address] Carlota Jin MD 1 [facility], [facility] 2 [place] [phone] 01/01/2025 6:45 EDT Treatment [facility] [place] [address] [place], [place] [address] Carlota Jin MD 1 [facility], [facility] 2 [place] [phone] 01/03/2025 6:45 EDT Treatment [facility] [place] [address] [place], [place] [id number] Carlota Jin MD 1 [facility], [facility] 2 [place] [phone] 01/05/2025 6:45 EDT Treatment [facility] [place] [address] [place], [place] [address] Calrota Jin MD 1 [facility], [facility] 2 [place] [phone] 01/08/2025 6:45 EDT Treatment [facility] [place] [address] [place], [place] [id number] Carlota Jin MD 1 [facility], [address] [phone] 01/10/2025 6:45 EDT Treatment [facility] [place] [address] [place], [place] [id number] Carlota Jin MD 1 [facility], [address] [phone] 01/12/2025 6:45 EDT Treatment [facility] [place] [address] [place], [place] [id number] Carlota Jin MD [address] [phone] 01/15/2025 6:45 EDT Treatment [facility] [place] [address] [place], [place] [id number] Carlota Jin MD [address] [phone] 01/17/2025 6:45 EDT Treatment [facility] [place] [address] [place], [place] [id number] Carlota Jin MD 1 [facility], [facility] 2 [place] [phone] 01/19/2025 6:45 EDT Treatment [facility] [place] [address] [place], [place] [id number] Carlota Jin MD 1 [facility], [facility] 2 [place] [phone] 01/22/2025 6:45 EDT Treatment [facility] [place] [address] [place], [place] [id number] Carlota Jin MD 1 [facility], [facility] 2 [place] [phone] 01/24/2025 6:45 EDT Treatment [facility] [place] [address] [place], [place] [id number] Carlota Jin MD 1 [facility], [address] [phone] 01/26/2025 6:45 EDT Treatment [facility] [place] [address] [place] [address] Carlota Jin MD 1 [facility], [facility] 2 [place] [phone] 01/29/2025 6:45 EDT Treatment [facility] [place] [address] [place], [place] [id number] Carlota Jin MD 1 [facility], [facility] 2 [place] [phone] 01/31/2025 6:45 EDT Treatment [facility] [place] [address] [place], [place] [id number] Carlota Jin MD 1 [facility], [address] [phone] 02/02/2025 6:45 EDT Treatment [facility] [place] [address] [place], [place] [id number] Carlota Jin MD 1 [facility], [address] [phone] 02/05/2025 6:45 EDT Treatment [facility] [place] [address] [place], [place] [id number] Carlota Jin MD 1 [facility], [address] [phone] 02/07/2025 6:45 EDT Treatment [facility] [place] [address] [place], [place] [id number] Carlota Jin MD 1 [facility], [address] [phone] 02/09/2025 6:45 EDT Treatment [facility] [place] [address] [place], [place] [id number] Carlota Jin MD [address] [place] [address], [address] [phone] 02/12/2025 6:45 EDT Treatment [facility] [place] [address] [place], [place] [id number] Carlota Jin MD 1 [facility], [facility] 2 [place] [phone] 02/14/2025 6:45 EDT Treatment [facility] [place] [address] [place], [place] [address] Carlota Jin MD 1 [facility], [facility] 2 [place] [phone] 02/16/2025 6:45 EDT Treatment [facility] [place] [address] [place], [place] [id number] Carlota Jin MD 1 [facility], [address] [phone] 02/19/2025 6:45 EDT Treatment [facility] [place] [address] [place], [place] [id number] Carlota Jin MD 1 [facility], [facility] 2 [place] [phone] 02/21/2025 6:45 EDT Treatment [facility] [address] [place], [place] [id number] Carlota Jin MD 1 [facility], [facility] 2 [place] [phone] documented as of this encounter Visit Diagnoses Not on filedocumented in this encounter Care Teams Barn Worker Relationship Specialty Start Date End Date [place] [address] PCP - General 07/07/23 documented as of this encounter
--- OUTSIDE RECORDS SUMMARY | 2024-12-05 12:14 | XMS_ITS | Encounter Summary ---
Author Organization [facility] Address [address] [place] [address] Care Team Providers Care Drum Worker Name Role Phone Ken Greer MD Primary Care Provider [phone] Encounter Details Date Type Department Care Team (Latest Contact Info) Description 11/19/2023 6:45 EST Treatment [facility] [address] [place], [place] [id number] Carlota Jin MD 1 [facility], Level 2 [place] [address] ESRD (end stage renal disease) ([facility]) (Primary Dx); Anemia of chronic renal failure, unspecified CKD stage; Hypoalbuminemia; Secondary hyperparathyroidism ([facility]) Social History Tobacco Use Types [...] - Temperature - - Respiratory Rate 16 11/19/2023 0623 EST Oxygen Saturation - - Inhaled Oxygen Concentration - - Weight 91.2 kg (201 lb 1 oz) 11/19/2023 0623 EST Height - - Body Mass Index 28.85 11/07/2023 0500 EST documented in this encounter [...] Flowsheet Note - Marcela Cox RN - 11/19/2023 1326 EST 11/19/23 1044 Post-Hemodialysis Assessment Total Blood Processed (L) 87.51 Liters On Line Clearance: spKt/V 1.46 spKt/V Dialyzer Clearance Lightly streaked Treatment UFR (ml:kg:hr) 11.77 ml:kg:hr Final Critline Profile (%/hr) -1.61 Final Profile Profile A Critline refill Not done Fluid Removed (L) 4.5 L Post-Dialysis Scale Weight 87 kg (191 lb 12.8 oz) Wheelchair Weight 0 kg (0 lb) Prosthesis Weight 0 kg (0 lb) Post-Treatment Weight (kg) 87 Treatment Weight Change (kg) 4.2 kg Day Target Weight (kg) 87.2 Post Sitting/Lying BP 135/73 Post Sitting/Lying pulse 73 Temp 36.7 ??C (98.1 ??F) Temp src [...] EST Treatment [facility] [address] [place], [place] [id number] Carlota Jin MD [address] [place] [phone] 12/08/2024 6:45 EST Treatment [facility] [address] [place], [place] [id number] Carlota Jin MD [address] [place] [phone] 12/11/2024 6:45 EST Treatment [facility] [address] [place], [place] [id number] Carlota Jin MD [address] [place] [phone] 12/13/2024 6:45 EST Treatment [facility] [address] [place], [place] [id number] Carl[facility] MD [facility] 2 [place] [phone] 12/15/2024 6:45 EST Treatment [facility] [place] [address] [place], [place] [id number] Carlota Jin MD 1 [facility], [facility] 2 [place] [phone] 12/18/2024 6:45 EST Treatment [facility] [place] [address] [place] [address] Carlota Jin MD 1 [facility], [facility] 2 [place] [phone] 12/20/2024 6:45 EST Treatment [facility] [place] [address] [place] [address] Carlota Jin MD 1 [facility], [facility] 2 [place] [phone] 12/22/2024 6:45 EST Treatment [facility] [place] [address] [place], [place] [id number] Carlota Jin MD 1 [facility], [facility] 2 [place] [phone] 12/25/2024 6:45 EST Treatment [facility] [place] [address] [place], [place] [id number] Carlota Jin MD 1 [facility], [facility] 2 [place] [phone] 12/27/2024 6:45 EST Treatment [facility] [place] [address] [place], [place] [id number] Carlota Jin MD 1 [facility], [facility] 2 [place] [phone] 12/29/2024 6:45 EST Treatment [facility] [place] [address] [place], [place] [id number] Carlota Jin MD 1 [facility], [facility] 2 [place] [phone] 01/01/2025 6:45 EDT Treatment [facility] [place] [address] [place], [place] [id number] Carlota Jin MD 1 [facility], [facility] 2 [place] [phone] 01/03/2025 6:45 EDT Treatment [facility] [place] [address] [place], [place] [id number] Carlota Jin MD 1 [facility], [facility] 2 [place] [phone] 01/05/2025 6:45 EDT Treatment [facility] [place] [address] [place], [place] [id number] Carlota Jin MD 1 [facility], [facility] 2 [place] [phone] 01/08/2025 6:45 EDT Treatment [facility] [place] [address] [place], [place] [id number] Carlota Jin MD 1 [facility], [facility] 2 [place] [phone] 01/10/2025 6:45 EDT Treatment [facility] [place] [address] [place], [place] [id number] Carlota Jin MD 1 [facility], [facility] 2 [place] [phone] 01/12/2025 6:45 EDT Treatment [facility] [place] [address] [place] [address] Carlota Jin MD 1 [facility], [address] [phone] 01/15/2025 6:45 EDT Treatment [facility] [place] [address] [place], [place] [id number] Carlota Jin MD 1 [facility], [address] [phone] 01/17/2025 6:45 EDT Treatment [facility] [place] [address] [place] [address] Carlota Jin MD 1 [facility], [facility] 2 [place] [phone] 01/19/2025 6:45 EDT Treatment [facility] [place] [address] [place], [place] [id number] Carlota Jin MD 1 [facility], [facility] 2 [place] [phone] 01/22/2025 6:45 EDT Treatment [facility] [place] [address] [place], [place] [address] Carlota Jin MD 1 [facility], [facility] 2 [place] [phone] 01/24/2025 6:45 EDT Treatment [facility] [place] [address] [place], [place] [address] Carlota Jin MD 1 [facility], [facility] 2 [place] [phone] 01/26/2025 6:45 EDT Treatment [facility] [place] [address] [place], [place] [address]84[address] Carlota Jin MD 1 [facility], [address] [phone] 01/29/2025 6:45 EDT Treatment [facility] [place] [address] [place], [place] [address] Carlota Jin MD 1 [facility], [facility] 2 [place] [phone] 01/31/2025 6:45 EDT Treatment [facility] [place] [address] [place], [place] [id number] Carlota Jin MD 1 [facility], [facility] 2 [place] [phone] 02/02/2025 6:45 EDT Treatment [facility] [place] [address] [place], [place] [address] Carlota Jin MD 1 [facility], [address] [phone] 02/05/2025 6:45 EDT Treatment [facility] [place] [address] [place], [place] [address] [phone] Carlota Jin MD 1 [facility], [address] [phone] 02/07/2025 6:45 EDT Treatment [facility] [place] [address] [place], [place] [address] Carlota Jin MD 1 [facility], [address] [phone] 02/09/2025 6:45 EDT Treatment [facility] [place] [address] [place] [address] Carlota Jin MD 1 [facility], [address] [phone] 02/12/2025 6:45 EDT Treatment [facility] [place] [address] [place], [place] [id number] Carlota Jin MD [address] [phone] 02/14/2025 6:45 EDT Treatment [facility] [place] [address] [place], [place] [address] Carlota Jin MD 1 [facility], [address] [phone] 02/16/2025 6:45 EDT Treatment [facility] [place] [address] [place] [address] Carlota Jin MD [address] [phone] 02/19/2025 6:45 EDT Treatment [facility] [place] [address] [place] [address] Carlota Jin MD [address] [place] [phone] 02/21/2025 6:45 EDT Treatment [facility] [place] [address] [place] [address] Carlota Jin MD [address] [place] [phone] documented as of this encounter Procedures Procedure Name Priority Date/Time Associated Diagnosis Comments HEMODIALYSIS Routine 11/19/2023 6:23 EST ESRD (end stage renal disease) ([facility]) documented in this encounter Visit Diagnoses Diagnosis ESRD (end stage renal disease) ([facility])- Primary End stage renal disease Anemia of chronic renal failure, unspecified CKD stage Hypoalbuminemia Other disorders of plasma protein metabolism Secondary hyperparathyroidism ([facility]) Secondary hyperparathyroidism (of renal origin) documented in this encounter Administered Medications Inactive Administered Medications - up to 3 most recent administrations Medication Order MAR Action Action Date Dose Rate Site calcium carbonate (TUMS) tablet 500 mg (200 mg elemental calcium) 2 Tablet 2 Tablet, oral, ONCE IN DIALYSIS, 1 dose, On Wed11/19/23 at 0645, Routine, DialysisIndications:ESRD (end stage renal disease) ([facility]),Secondary hyperparathyroidism ([facility]) Given 11/19/2023 6:44 EST 2 Tablets epoetin ken (EPOGEN) 20,000 unit/2 mL injection 1,000 Units 1,000 Units, intravenous, ONCE IN DIALYSIS, 1 dose, On Wed11/19/23 at 0645, Routine, DialysisIndications:ESRD (end stage renal disease) ([facility]),Anemia of chronic renal failure, unspecified CKD stage Given 11/19/2023 6:44 EST 1,000 Units heparin injection 9,000 Units 9,000 Units, intravenous, ONCE IN DIALYSIS, 1 dose, On Wed11/19/23 at 0645, Routine, Dialysis, Now x1 bolus 4500 units to be given at the beginning of dialysis 1500 units/hour to be given over the course of dialysis (9000 units total). Stop 1 hour prior to end of treatment. To be administered per Policy [id number].Indications:ESRD (end stage renal disease) ([facility]) Given 11/19/2023 6:44 EST 9,000 Units LiquaCel liquid protein liquid 30 mL 30 mL, oral, ONCE IN DIALYSIS, 1 dose, On Wed11/19/23 at 0645, RoutineIndications:ESRD (end stage renal disease) ([facility]),Hypoalbuminemia Given 11/19/2023 6:44 EST 30 mL documented in this encounter Orders Dialysis Count Last Ordered Date First Orde red Date HEMODIALYSIS 1 11/19/2023 documented in this encounter Care Teams Drum Worker Relationship Specialty Start Date End Date Ken Greer MD [address] [place] [address] PCP - General 07/07/23 documented as of this encounter
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
--- OUTSIDE RECORDS SUMMARY | 2024-12-05 12:15 | XMS_ITS | Encounter Summary ---
Author Organization [facility] Address [address] [place] [address] Care Team Providers Care Toy Assembly Supervisor Name Role Phone Ken Greer MD Primary Care Provider [phone] Encounter Details Date Type Department Care Team (Late st Contact Info) Description 11/12/2023 Documentation Visit [address] [place], [place] [address] Melissa Crespo, VIDYA Social History Tobacco Use [...] Treatment [facility] [place] [address] [place], [place] [phone] Carlota Jin MD 1 [facility], [facility] 2 [place] [phone] 12/08/2024 6:45 EST Treatment [facility] - [place] [address] [place], [place] [phone] Carlota Jin MD 1 [facility], [facility] 2 [place] [phone] 12/11/2024 6:45 EST Treatment [facility] - [place] [address] [place], [place] [phone] Carlota Jin MD 1 [facility], [facility] 2 [place] [phone] 12/13/2024 6:45 EST Treatment [facility] [address] [place], [place] [phone] Carlota Jin MD 1 [facility], Level [address] [place] [phone] 12/15/2024 6:45 EST Treatment [facility] - [place] [address] [place], [place] [address] Carlota Jin MD 1 [facility], [facility] 2 [place] [phone] 12/18/2024 6:45 EST Treatment [facility] - [place] [address] [place], [place] [id number] Carlota Jin MD 1 [facility], [facility] 2 [place] [phone] 12/20/2024 6:45 EST Treatment [facility] - [place] [address] [place], [place] [address] Carlota Jin MD 1 [facility], [facility] 2 [place] [phone] 12/22/2024 6:45 EST Treatment [facility] [place] [address] [place] [address] Carlota Jin MD 1 [facility], [facility] 2 [place] [phone] 12/25/2024 6:45 EST Treatment [facility] - [place] [address] [place], [place] [address] Carlota Jin MD 1 [facility], [facility] 2 [place] [phone] 12/27/2024 6:45 EST Treatment [facility] [place] [address] [place], [place] [address] Carlota Jin MD [address] [facility], [facility] 2 [place] [phone] 12/29/2024 6:45 EST Treatment [facility] - [place] [address] [place], [place] [phone] Carlota Jin MD 1 [facility], [facility] 2 [place] [phone] 01/01/2025 6:45 EDT Treatment [facility] - [place] [address] [place], [place] [phone] Carlota Jin MD 1 [facility], [facility] 2 [place] [phone] 01/03/2025 6:45 EDT Treatment [facility] - [place] [address] [place], [place] [address] Carlota Jin MD [address] [place] [address], [facility] 2 [place] [phone] 01/05/2025 6:45 EDT Treatment [facility] - [place] [address] [place], [place] [phone] Carlota Jin MD 1 [facility], [facility] 2 [place] [phone] 01/08/2025 6:45 EDT Treatment [facility] - [place] [address] [place], [place] [address] Carlota Jin MD 1 [facility], [facility] 2 [place] [phone] 01/10/2025 6:45 EDT Treatment [facility] - [place] [address] [place], [place] [address] Carlota Jin MD 1 [facility], [facility] 2 [place] [phone] 01/12/2025 6:45 EDT Treatment [facility] - [place] [address] [place], [place] [id number] Carlota Jin MD 1 [facility], [facility] 2 [place] [phone] 01/15/2025 6:45 EDT Treatment [facility] - [place] [address] [place] [address] Carlota Jin MD 1 [facility], [facility] 2 [place] [phone] 01/17/2025 6:45 EDT Treatment [facility] - [place] [address] [place], [place] [address] Carlota Jin MD [address] [facility], [facility] 2 [place] [phone] 01/19/2025 6:45 EDT Treatment [facility] [place] [address] [place], [place] [id number] Carlota Jin MD 1 [facility], [facility] 2 [place] [phone] 01/22/2025 6:45 EDT Treatment [facility] - [place] [address] [place], [place] [id number] Carlota Jin MD 1 [facility], [facility] 2 [place] [phone] 01/24/2025 6:45 EDT Treatment [facility] - [place] [address] [place], [place] [address] Carlota Jin MD 1 [facility], [facility] 2 [place] [phone] 01/26/2025 6:45 EDT Treatment [facility] - [place] [address] [place], [place] [id number] Carlota Jin MD 1 [facility], [facility] 2 [place] [phone] 01/29/2025 6:45 EDT Treatment [facility] [place] [address] [place], [place] [phone] Carlota Jin MD 1 [facility], [facility] 2 [place] [phone] 01/31/2025 6:45 EDT Treatment [facility] [place] [address] [place], [place] [phone] Carlota Jin MD [address] [facility], [facility] 2 [place] [phone] 02/02/2025 6:45 EDT Treatment [facility] [place] [address] [place], [place] [address] Carlota Jin MD 1 [facility], [facility] 2 [place] [phone] 02/05/2025 6:45 EDT Treatment [facility] [place] [address] [place] [address] Carlota Jin MD 1 [facility], [facility] 2 [place] [phone] 02/07/2025 6:45 EDT Treatment [facility] [place] [address] [place], [place] [id number] Carlota Jin MD 1 [facility], [facility] 2 [place] [phone] 02/09/2025 6:45 EDT Treatment [facility] - [place] [address] [place], [place] [phone] Carlota Jin MD 1 [facility], [facility] 2 [place] [phone] 02/12/2025 6:45 EDT Treatment [facility] - [place] [address] [place], [place] [id number] Carlota Jin MD 1 [facility], [facility] 2 [place] [phone] 02/14/2025 6:45 EDT Treatment [facility] - [place] [address] [place], [place] [address] Carlota Jin MD 1 [facility], [facility] 2 [place] [phone] 02/16/2025 6:45 EDT Treatment [facility] [address] [place], [place] [id number] Carlota Jin MD 1 [facility], [facility] 2 [place] [phone] 02/19/2025 6:45 EDT Treatment [facility] [place] [address] [place], [place] [phone] Carlota Jin MD 1 [facility], [facility] 2 [place] [phone] 02/21/2025 6:45 EDT Treatment [facility] [address] [place], [place] [phone] Carlota Jin MD [address] [place] [address], [address] [phone] documented as of this encounter Visit Diagnoses Not on filedocumented in this encounter Additional Health Concerns Infection Onset Date Last Indicated Resolved Time COVID-19 Comment:COVID+ 11[facility]05/23 [facility] 11/08/2023 11/08/2023 11/17/2023 13:58 EST documented as of this encounter Care Teams Toy Assembly Supervisor Relationship Specialty Start Date End Date Ken Greer MD [address] [place] [address] PCP - General 07/07/23 documented as of this encounter
--- OUTSIDE RECORDS SUMMARY | 2024-12-05 12:15 | XMS_ITS | Encounter Summary ---
Author Organization [facility] Address [address] [place] [address] Care Team Providers Care Certified Residential Medication Aide Name Role Phone Ken Greer MD Primary Care Provider [phone] Reason for Referral * Consult (Urgent) - New Request Specialty Diagnoses / Procedures Referred By Nader gardiner Referred To Contact Diagnoses Diabetic foot infection ([facility]) ESRD (end stage renal disease) on dialysis ([facility]) Type 2 diabetes mellitus with hypoglycemia without coma, with long-term current use of insulin ([facility]) Terri Aly MD [address] [place] [id number] Phone: tel: fax: Referral ID Status Reason Start Date Expiration Date Visits Requested Visits Authorized [id number] New Request Specialty Services Required 11/10/2023 1 1 Question Answer Reason for Request: Pt with uncontrolled DM2, ESRD on dialysis, recently hospitalized for diabetic foot infection Comments To [facility] Endocrinology * Consult (Urgent) - New Request Specialty Diagnoses / Procedures Referred By Nader gardiner Referred To Contact Diagnoses Diabetic foot infection ([facility]) Type 2 diabetes mellitus with hypoglycemia without coma, with long-term current use of insulin ([facility]) Terri Aly MD [address] [place] [id number] Phone: tel: fax: Referral ID Status Reason Start Date Expiration Date Visits Requested Visits Authorized [id number] New Request Specialty Services Required 11/10/2023 1 1 Question Answer Reason for Request: Pt with diabetic food infection, needs close f/u Comments Referral to [facility] Podiatry * Consult (Urgent) - New Request Specialty Diagnoses / Procedures Referred By Contac t Referred To Contact Diagnoses Diabetic foot infection ([facility]) ESRD (end stage renal disease) on dialysis ([facility]) Type 2 diabetes mellitus with hypoglycemia without coma, with long-term current use of insulin ([facility]) Terri Aly MD [address] [place] [address] Phone: tel: fax: [facility] Phone: tel: fax: Referral ID Status Reason Start Date Expiration Date Visits Requested Visits Authorized [id number] New Request Specialty Services Required 11/10/2023 1 1 Question Answer I certify that this patient is under my care and that I, or another Medicare allowed practitioner (DO PALAK, LISA) working with me, had a [id number] encounter with this patient on this date: 11/10/2023 The discharge summary or progress note will provide further details that support the need for the home health services and the plan of care. Yes Enter the allowed practitioner (DO PALAK, LISA) who will provide oversight of this patient's home heatlh care needs and plan of care Ken Greer Some payers require a patient to be homebound to qualify for home health services. Homebound definition: Absences from home are infrequent or for relatively short duration (such as for medical appointments). Is patient HOMEBOUND? Yes The patient? s homebound status is related to the following diagnoses, illness or condition (describe): End Stage Renal Disease The patient has a condition due to an illness or injury that restricts the ability to leave home except with: Person to assist Leaving home requires a considerable and taxing effort with mobility limited by the following (criteria 1): Impaired balance Leaving home requires a considerable and taxing effort with mobility limited by the following (criteria 2): Impaired gait Additional criteria (optional): Pain, Impaired strength, Impaired balance Skilled care requested: Nursing (includes assessment, treatment, disease management/education, wound care) Nursing skilled care requested: Nursing assessment, Nursing treatment, Wound care USP assessment needed related to this encounter: Wound, Ostomy or Incontinence Assessment Skilling Nursing Referral - Treatment: Skilled Foot Care Mcc Referral - Wound Care: (Please include care and frequency.) Post-surgical, Ulcer Type: Diabetic Frequency of wound care: 3x weekly If greater than 3x weekly, indicate person taught wound care prior to discharge: Number of Wound/Dressing Sites: 1 Wound/Dressing Location Site 1 (Please ensure to send the client home with 1 weeks' worth of supplies): Foot Cleanse Wound Site 1: Normal saline Associated Medications Site 1 (Please make sure you also place prescription order): Not Applicable Primary Wound Dressing Site 1: Other Please Specify: Wet to Dry Cover Wound Site 1: Other Please Specify: Kerlix Adhesive Site 1: JUAN bandage * Consult (Routine/Next Available) - Receiving Office to Obtain Authorization Specialty Diagnoses / Procedures Referred By Nader gardiner Referred To Contact Orthopedic Surgery Diagnoses Diabetic foot infection ([facility]) [facility] General Medicine Unit [address] [place] [address] Phone: tel: fax: [facility] [address] [place] [address] Phone: tel: fax: Referral ID Status Reason Start Date Expiration Date Visits Requested Visits Authorized [id number] Receiving Office to Obtain Authorization Specialty Services Required 4 1 1 Question Answer Reason for Request: Diabetic foot ulcer Reason for Visit * Auth/Cert (Routine) Specialty Diagnoses / Procedures Referred By Contac t Referred To Contact Diagnoses Diabetic foot infection ([facility]) DIABETIC FOOT ABSCESS Referral ID Status Reason Start Date Expiration Date Visits Re quested Visits Authorized [id number] 1 1 Encounter Details Date Type Department Care Team (Late st Contact Info) Description 11/07/2023 1:39 EST - 11/10/2023 18:18 EST Hospital Encounter [facility] General Medicine Unit [address] [place], [place] [id number] Negrito Torres MD [address] [id number] Wayne Salazar MD [address] [phone] Melissa Rich MD [address] [phone] Jewel Ordaz MD Diabetic foot infection ([facility]) (Primary Dx); ESRD (end stage renal disease) on dialysis ([facility]); COVID; ESRD (end stage renal disease) ([facility]); Type 2 diabetes mellitus with hypoglycemia without coma, with long-term current use of insulin ([facility]) Discharge Disposition: Home-Health Care Svc Social History [...] Sign Reading Time Taken Comments Blood Pressure 171/72 11/10/2023 1728 EST Pulse 60 11/10/2023 1441 EST Temperature 36.4 ??C (97.5 ??F) 11/10/2023 1511 EST Respiratory Rate 18 11/10/2023 1511 EST Oxygen Saturation 94% 11/10/2023 1511 EST Inhaled Oxygen Concentration - - Weight 91.8 kg (202 lb 6.1 oz) 11/10/[address] Height 177.8 cm (5' 10) 11/07/2023 0500 EST Body Mass Index 29.04 11/07/2023 0500 EST documented in this encounter [...] De Santiago RN documented in this encounter Discharge Summaries * Terri Aly MD - 11/10/2023 1638 EST Images from the original note were not included. HOSPITAL MEDICINE DISCHARGE SUMMARY Primary Care Provider: Ken Greer Attending Physician: Jewel Ordaz MD Admit Date: 11/07/23 Discharge Date: 11/10/2023 Disposition (location): To home Condition at Discharge: Stable Reason for Admission (chief complaint): Diabetic foot infection, Covid + Principal/Final Diagnosis: Diabetic foot infection ([facility]) Additional Problems Managed in the Hospital: Active Hospital Problems Diagnosis Date Noted *Diabetic foot infection ([facility]) 11/07/2023 Type 2 diabetes mellitus with hypoglycemia without coma, with long-term current use of insulin ([facility]) 11/09/2023 COVID 11/07/2023 ESRD (end stage renal disease) ([facility]) 11/11/2022 Resolved Hospital Problems No resolved problems to display. Transition of care: [facility] Transition of Care report automatically routed to PCP office on discharge.Additional handoff communication performed via: Fax Clinical Issues Needing Follow-up 1. Pertinent medication changes: - Continue PO amoxicillin/clavulanate 500/125 mg daily for a 3-4 week course (11/08-11/29 or 12/06) pending clinical improvement - Given hypoglycemia, Victoza was held. Could consider restarting as an outpatient - decrease levemir to 25units in evening, slowly increase depending on morning sugars and/or PCP instruction 2. Recommended follow-up tests/procedures needed: - Pt will need to connect with outpatient podiatry and endocrinology, orders placed - Outpatient f/u w/ orthopedic foot + ankle clinic on discharge - referral placed 3. Anticoagulation on discharge: No 4. Changes to goals of care at time of discharge (if applicable): No Hospital Course: Gerson Bruner is a 57 y.o. male with a PMHx significant for ESRD (HD M/W/F), T2DM, HTN, HLD, PAD, tobacco dependence who presented to [facility] as a direct transfer from [facility] with a diabetic foot infection s/p debridement 10/31 with wound culture growing GBS, K oxytoca(amox/clav-S), MSSA, and Rautella. Transferred to [facility] for dialysis and additional evaluation by orthopedics. Wound was debrided and wound cultures sent on 11/08. MR Foot done without evidence of osteomyelitis. He received Vancomycin, Metronidazole, and CTX (11/07-11/08) before ID recommending transitioning to 3-4 week course of oral Augmentin 500/125. He was found to be Covid positive after presenting to [facility]. Was started on Remdesivir given multiple co-morbidities despite being largely asymptomatic. He remained stable hemodynamically stable off of oxygen throughout his hospital stay. During his hospital stay he received dialysis Wednesday and Wednesday without issue. His blood glucose was initially difficult to control while inpatient with hypoglycemic episodes in the morning on his WINCHER dose of long acting insulin and then a decreased dose of long acting insulin.Pt and confirmed he takes Levemir 50 units nightly and Victoza but does not check his blood sugars as an outpatient. A1C elevated to 11.6 on admission. Given poor PO intake during his admission his diet was liberalized with improvement in his sugars. He was discharged on a reduced dose of his long acting insulin with close f/u with PCP. Referral to podiatry and endocrinology placed on discharge. Relevant Imaging/Procedures Performed: MR FOOT WO CONTRAST LEFT Result Date: 11/08/2023 1. Superficial ulceration over the medial aspect of the calcaneus, moderate diffuse skin thickeningthroughout the ankle and imaged foot, and subcutaneous edema, compatible with cellulitis. 2. No organized or drainable collection or abscess formation seen. 3. No MR imaging evidence of osteomyelitis. XR FOOT LEFT 3 OR MORE VIEWS Result Date: 11/07/2023 No erosive changes evident. Results Pending at Discharge: Test results still pending from this admission Procedure Component Value Units Date/Time Bacterial Culture/Smear, Other [[id number]] (Abnormal) Collected: 11/08/23 011 Lab Status: Preliminary result Specimen: Tissue from Foot Updated: 11/08/23209 Smear No Neutrophils Seen Few Gram Positive Cocci Few Gram Negative Bacilli Please Note: Does not include future Hemodialysis appointments. Please use Chart Review-Encounters to see future scheduled Hemodialysis appointments. Follow-up appointments and procedures Amb Consult/Follow Up Endocrinology To [facility] Endocrinology Reason for Request: Pt with uncontrolled DM2, ESRD on dialysis, recently hospitalized for diabetic foot infection Authorizing Provider: Terri Aly MD Amb Consult/Follow Up Podiatry Referral to [facility] Podiatry Reason for Request: Pt with diabetic food infection, needs close f/u Authorizing Provider: Terri Aly MD [facility] I certify that this patient is under my care and that I, or another Medicare allowed practitioner (DO PALAK, LISA) working with me, had a [id number] encounter with this patient on this date: 11/10/2023 The discharge summary or progress note will provide further details that support the need for the home health services and the plan of care.: Yes Enter the allowed practitioner (, DO, LISA) who will provide oversight of this patient's home heatlh care needs and plan of care: Ken Greer Some payers require a patient to be homebound to qualify for home health services. Homebound definition: Absences from home are infrequent or for relatively short duration (such as for medical appointments). Is patient HOMEBOUND?: Yes The patient???s homebound status is related to the following diagnoses, illness or condition (describe): End Stage Renal Disease The patient has a condition due to an illness or injury that restricts the ability to leave home except with: Person to assist Leaving home requires a considerable and taxing effort with mobility limited by the following (criteria 1): Impaired balance Leaving home requires a considerable and taxing effort with mobility limited by the following (criteria 2): Impaired gait Additional criteria (optional): Pain Impaired strength Impaired balance Skilled care requested: Nursing (includes assessment, treatment, disease management/education, wound care) Nursing skilled care requested: Nursing assessment Nursing treatment Wound care USP assessment needed related to this encounter: Wound, Ostomy or Incontinence Assessment Skilling Nursing Referral - Treatment: Skilled Foot Care Mcc Referral - Wound Care: (Please include care and frequency.): Post-surgical Ulcer Type: Diabetic Frequency of wound care: 3x weekly If greater than 3x weekly, indicate person taught wound care prior to discharge: Number of Wound/Dressing Sites: 1 Wound/Dressing Location Site 1 (Please ensure to send the client home with 1 weeks' worth of supplies): Foot Cleanse Wound Site 1: Normal saline Associated Medications Site 1 (Please make sure you also place prescription order): Not Applicable Primary Wound Dressing Site 1: Other Please Specify: Wet to Dry Cover Wound Site 1: Other Please Specify: Kerlix Adhesive Site 1: JUAN bandage Authorizing Provider: Terri Aly MD Amb Consult/Follow Up Orthopedics - [facility] Reason for Request: Diabetic foot ulcer Authorizing Provider: Chad Davila M.D. 11/10/2023 16:46 Family Medicine PGY2, [phone] Cosigned by Jewel Ordaz MD at 11/13/2023 1:07 EST Associated attestation - Jewel Ordaz MD - 11/13/2023 0107 EST Attending Attestation I interviewed and examined the patient on 11/10/23. I have personally reviewed interval events, laboratory data, and imaging. I discussed the case with the resident team and agree with the plan of care as documented in the resident discharge summary below (edits in purple). The patient is medically stable for discharge. I reviewed the discharge instructions and follow up plan with the patient. I personally spent >30 minutes reviewing the chart, evaluating and examining the patient, and counseling and preparing the patient for discharge. Jewel Ordaz MD 11/13/2023 1:03 documented in this encounter Discharge Instructions * Discharge Instr - AVS First Page* Terri Aly MD - 11/10/2023 16:19 EST Follow up: Please see your recommended follow-up below. - A referral to endocrinology at [facility] has been placed. They will call you to schedule. - A referral to podiatry at [facility] has been placed. They will call you to schedule. - Please call your primary care doctor to schedule an appointment. - A referral to orthopedics at [facility] has been placed. They will call you to schedule. - Home health has been setup for Wound Care. They will be contacting you to set up appointments. - Continue with M/W/F dialysis Do not weight bear on your heel. You can put your weight on your left toes in a boot if you need totransfer or walk a short distance. Putting weight on your left heel puts you at risk for worsening infection. It may also cause your wound to heal more slowly or not heal at all. Major Medication Changes: Please review the complete list of your medications below. Some of the most important new medication changes you will have going forward include: START taking: Augmentin 500-125 once daily for treatment of your infection. You will take it through 10/05/24. Use 1 nicotine patch daily to help with cigarette cravings. Take Sevelamer 800mg three times daily with meals Take 2,000 IU of Vitamin D once daily Take Sevelamer 800mg three times daily For your Insulin: - Take 25 units of long acting insulin (Levemir) in the evening on 11/10 - Check your fasting blood sugar in the morning. If blood sugar is above 180 in the morning add an additional 5 units to your evening insulin dose. For example if you take 25 units on 11/10 and your blood sugar in the morning on 11/11 is 220, you could take 30 units in the evening on 11/11. You can add 5 daily if needed up to a maximum of 50 units daily. - If your blood sugar is above 400 or below 80 please call your primary care doctor to discuss a plan. Low Blood Sugar (Hypoglycemia) Treatment If you ever get symptoms of low blood sugar such as shakiness, dizziness, sweating, extreme hunger,anxiety, headache, check your blood sugar. If your reading is less than 70, follow the rule of 15s Eat 15 g of fast-acting sugar/carbohydrates to raise your blood sugar. This could be half a cup (4 oz) of juice or regular soda, 5 pieces of hard candy, 3-5 glucose tablets Wait 15 minutes and check your blood sugar again. If your blood sugar is less than 70, repeat these steps. Wait 15 minutes and check your blood sugaragain. If it is still low, go to the emergency room. If your blood sugar is greater than 70, eat a meal or small snack to keep your blood sugar up Please speak to your primary care physician about any questions you have regarding your medications. Thank you for choosing [facility] for your care! documented in this encounter Medications at Time [...] Take 1 Tablet by mouth daily. 12/24/2023 amoxicillin-clavu lanate (AUGMENTIN) 500-125 mg per tablet Take 1 Tablet by mouth every 24 hours for 26 days. 26 Tablet 11/10/2023 12/06/2023 cholecalciferol, Vitamin D3, 50 mcg (2,000 unit) tablet Take 1 Tablet by mouth daily for 28 days. 28 Tablet 11/11/2023 12/09/2023 famotidine (PEPCID) 40 mg tablet Take 1 Tablet by mouth daily. 02/28/2024 FLOVENT HFA 110 mcg/actuation inhaler Inhale 1 Puff as directed. 03/08/2023 02/28/2024 LEVEMIR FLEXPEN 100 unit/mL (3 mL) injectable pen Inject 30 Units into the skin at bedtime. 01/19/2023 12/24/2023 liraglutide (VICTOZA 2-JULY) 0.6 mg/0.1 mL [...] by mouth 2 times daily. 08/03/2023 12/24/2023 sevelamer carbonate (RENVELA) 800 mg tablet Take 2 Tablets by mouth 3 times daily with meals for 28 days. 168 Tablet 11/10/2023 12/08/2023 sildenafil citrate (VIAGRA) 100 mg tablet Take 1 Tablet by mouth as needed. 11/05/2023 02/28/2024 documented as of this encounter Ordered Prescriptions Prescription Sig Dispense Quantity Refills Last Filled Start Date End Date sevelamer carbonate (RENVELA) 800 mg tablet Take 2 Tablets by mouth 3 times daily with meals for 28 days. 168 Tablet 11/10/2023 cholecalciferol, Vitamin D3, 50 mcg (2,000 unit) tablet Take 1 Tablet by mouth daily for 28 days. 28 Tablet 11/11/2023 4 nicotine (NICODERM CQ) 21 mg/[address] 1 Patch onto the skin daily. 30 Each 11/11/2023 4 amoxicillin-clavul anate (AUGMENTIN) 500-125 mg per tablet Take 1 Tablet by mouth every 24 hours for 26 days. 26 Tablet 11/10/2023 4 documented in this encounter Discharge Disposition Disposition Code Departure Means Destination Comment s Home-Health Care [facility] documented in this encounter Progress Notes * Mirian Ruiz PA-C - 11/10/2023 181 EST DIALYSIS PROVIDER TRANSFER NOTE See Discharge Summary and Discharge Med List in Epic Chief Complaint Upon Admit/Transfer: Diabetic foot infection and COVID-19 Hospitalization Notable For: Hypoglycemia on WINCHER insulin regimen. Adjusted prior to d/c by primary team. Discharge Diagnosis: Same Changes Made to Dialysis Orders: None Therapy Plan Updated: N/A Antibiotics: He will complete a 3 or 4 week course of augmentin I recommended he continue on renvela with meals, which was added during admission, in addition to his WINCHER 1 tums with meals due to elevated phosphorus. Monitor need to adjust. Mirian Ruiz PA-C [facility] Nephrology Acute Dialysis [place] [facility] * Loren Guzmán - 11/10/2023 1721 EST SW provided pt with a rolling walker at his bedside on [address] to facilitate his discharge. Pt signed the agreement form. Loren Guzmán [facility] ED Laundry Housekeeper Pager: [phone] Available on [email or web address] * Agustin Gonzalez, PT - 11/10/2023 1608 EST [facility] Rehabilitation Therapy [facility] Physical Therapy Initial Evaluation/Discontinue Note Date of Service: 11/10/2023 Reason for Referral: Priority for discharge Precautions: Activity as tolerated and now toe-touch weightbearing to left lower extremity per Ortho for short distances. SUBJECTIVE: I hope to go home. present for entire PT session. Pain: No pain reported during the interview. OBJECTIVE: MD H&P note reviewed. Reason for Admission: 57 y.o. male admitted with a chief complaint of foot wound and now with a principal diagnosis of moderate diabetic foot infection. Initially nonweightbearing to left lower extremity but patient unable to maintain. Per Ortho MD fonsecaay for toe-touch weightbearing left lower extremity for short distance ambulation. Patient Profile: Patient is a 57 y.o. male admitted on 11/07/2023 secondary to Diabetic foot infection ([facility]) [E11.628, L08.9] The patient lives at [address] [place] [id number] Home environment Lives: with family Caregiver Support: 24-hour assist Equipment Available: None Patient to discharge to his mother's home with his support. All on 1 floor no stairs to enter. 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 associated with type 2diabetes mellitus ([facility]) ESRD (end stage renal disease) ([facility]) Essential (primary) hypertension Hearing loss Herniation of lumbar intervertebral disc with radiculopathy Hyperlipidemia Proteinuria Right sided numbness Secondary hyperparathyroidism ([facility]) TIA (transient ischemic attack) Type II or unspecified type diabetes mellitus with neurological manifestations, uncontrolled(250.62) Encounter for immunization Hypoalbuminemia Anemia of chronic renal failure Abnormal albumin Cellulitis and abscess of foot, except toes Encounter for therapeutic drug monitoring Diabetic foot infection ([facility]) COVID Type 2 diabetes mellitus with hypoglycemia without coma, with long-term current use of insulin ([facility]) Past: Past Medical History: Diagnosis Date Asthma Mild Diabetes mellitus ([facility]) DM2 Hyperlipidemia Hypertension Stage 3 chronic kidney disease ([facility]) Unsteady gait when walking Past Surgical History: Procedure Laterality Date APPENDECTOMY BACK SURGERY CHOLECYSTECTOMY DIALYSIS FISTULA CREATION Left SHOULDER SURGERY Medications: Medications reviewed Arousal, Attention, and Cognition: Orientation: Oriented to person, place, and time Cardiopulmonary: Vital Signs: Vital signs stable with activity and asymptomatic. Patient just completed dialysis. End-stage renal disease with dialysis 3 times per week Integumentary/Anthropometric Characteristics: Palpation/Observation: Skin: Left diabetic heel wound. Per Ortho now able to toe-touch weight-bear short distances. Posture: No problem noted Range of Motion and Joint Integrity: Active Range of Motion: Within normal limits except as noted Upper Quarter: Left Upper Extremity: Right Upper Extremity: Cervical Spine: Lower Quarter: Left Lower Extremity: Neutral right ankle Right Lower Extremity: Chronic foot drop, passively to neutral Lumbar Spine: N/E Muscle Performance: Strength: Testing completed in: sitting Gross muscle testing performed. All grossly >4/5 except noted below: Upper Quarter: Left Upper Extremity: Right Upper Extremity: Cervical Spine: N/E formally evaluated, functionally at least 3/5 Lower Quarter: Left Lower Extremity: Right Lower Extremity: Right foot drop chronically Lumbar Spine: N/E Sensation, Reflexes, and Nerve Integrity: Light Touch Sensation: Upper Quarter: Intact C2-T1 Lower Quarter: Diminished: Bilateral lower extremities Neuromotor Function/Development: No problems noted Balance, Locomotion, and Gait: Balance: Balance deficits observed Sitting: Patient can tolerate static sitting unsupported independently. Standing: Patient can tolerate static standing with rolling walker with close supervision. Patient requires minimal contact assistance to maintain dynamic standing/ambulating short distanceswith rolling walker. Patient unable to maintain nonweightbearing status without significant assist.Patient easily able to ambulate well toe-touch weightbearing left lower extremity short distances wi th rolling walker with close supervision/minimal contact assist of 1. Mobility: During all activities performed this patient was provided cues and education. These were provided to give movement techniques to decrease post procedure discomfort, optimize patient safety, adhere topost procedure precautions and utilize pacing recommendations. With training, mobility performance as follows: Rolling: independent Supine to Sit: independent Sit to Supine: independent Sit to Stand: minimal contact assistance with rolling walker Stand to Sit: minimal contact assistance with rolling walker Transfers: minimal contact assistance with rolling walker Gait: During all activities performed this patient was provided cues and education. These were provided to give movement techniques to decrease post procedure discomfort, optimize patient safety, adhere topost procedure precautions and utilize pacing recommendations. With training, mobility performance as follows: Patient ambulated 10 feet with rolling walker as instructed while maintaining left lower extremity toe-touch weightbearing status at an minimal contact assistance level. Gait quality: Patient demonstrates a slower, step to antalgic gait pattern. See vital sign section above for demonstrated activity tolerance during activity performed. Patient unable to maintain her original nonweightbearing left lower extremity status. Patient able to ambulate short distances with rolling walker while toe- touch weightbearing left lower extremity. Self-Care, Home Management, Work, and Leisure: Not Evaluated Informed Consent: The patient consented to the physical therapy evaluation. The patient agrees to and understands the physical therapy treatment plan and goals. Interventions Completed Today: Physical Therapy today at: 1500 Total treatment time: 20 minutes. Timed code treatment minutes: 0 Intervention included: No interventions completed today Patient/Family Education: Topic: Activity pacing/Energy conservation Assistive device/technique Balance Discharge planning Equipment use Positioning Precautions/protocol Role of therapy Safety Transfers Learner: patient and family Method: verbal and demonstration Barriers to Learning: none noted Outcome: verbalized understanding and returned demonstration Team Communication: Discussed current level of mobility and recommendations with nursing for assistance with mobility and positioning outside of PT. Recommend: All while toe-touch weightbearing left lower extremity with rolling walker Out of bed to chair and ambulate in room while toe-touch weightbearing left lower extremity with use of rolling walker assistive device and nursing or family assist of 1. ASSESSMENT: Physical Therapy Diagnosis: This patient was admitted with left heel diabetic foot ulcer and COVID-19 infection. Wound culture of his diabetic foot infection and I&D growing Staph aureus and Klebsiella. He was receiving vancomycin with hemodialysis, ciprofloxacin, and metronidazole. Now medically ready for discharge. Patient now presents with a physical therapy diagnosis of: impaired functional mobility, impaired functional balance given new weightbearing status and impaired functional endurance. . These are impacted by: acute medical status/procedures, [...] time of discharge: Home health physical therapy Patient was unable to maintain original nonweightbearing left lower extremity status with rolling walker. Patient easily able to ambulate short distances with rolling walker while maintaining toe-touch weightbearing left lower extremity per Ortho okay. Patient would benefit from a loaner wheelchair for longer distances but otherwise is functionally safe for discharge home on 1 level with his 's assistance, a rolling walker and short distance mobility while toe-touch weightbearing left lower extremity. Patient would benefit from home physical therapy to reassess functional status and progress mobility as able. Short-Term Goals: Not applicable Long-Term Goals: 1 day - MET Patient will be at independent level of assist with all bed mobility demonstrating proper techniqueand sequencing Patient will be at minimal contact level of assist with all transfers demonstrating proper technique and sequencing with or without appropriate assistive device as needed Patient will ambulate 10 feet without loss of balance at minimal contact level with least restrictive device/no device while demonstrating proper technique and sequencing, while maintaining left lower extremity toe-touch weightbearing All of the above mobility goals will be performed with stable vital signs and with SpO2 >= 92% %on least amount of FiO2. PLAN: Discontinue acute care PT. Continue mobility with nursing assistance while hospitalized. Recommended Discharge Destination: Home with family Recommended Discharge Services: Home health physical therapy Recommended Equipment Needs: He needs a rolling walker for home and patient has access to a loaner wheelchair from family. Other recommendations: No other consults recommended at this time Pager: [phone] AGUSTIN GONZALEZ, PT 11/10/2023 16:09 * Agustin Gonzalez, PT - 11/10/2023 1606 EST [facility] Rehabilitation Therapy Acute Therapy [facility] Physical Therapy Contact Note Date of Service: 11/10/2023 PT evaluation and intervention completed. Full note to follow. NOW Just cleared for Toe touch wt bearing LLE by ORTHO Patient unable to maintain nonweightbearing left lower extremity Recommend: OOB to chair TID and ambulate i short distances while toe-touch weightbearing left lower extremity with rolling walker and nursing or family assist of 1 for safety Home when medically cleared with family. Rolling walker for home Home physical therapy Patient has access to a loaner wheelchair for longer distances. AGUSTIN GONZALEZ, PT 11/10/2023 16:06 [id number] * Cheyenne Scruggs - 11/10/2023 1507 EST [facility] Progress Note Referral made to [facility] for SN and wound support. Spoke with spouse who reported they are staying at [facility]- there are no stairs to enterbut there is a bank that needs to be walked down to get into the home. Spouse also reported that hecould stay with his mother in a one level home. This information was provided to team and PT. Cheyenne Scruggs, HANDYPERSON Labor Mediator II Epic chat preferred. 11/10/2023 15:08 * Mona Cope RN - 11/10/2023 0025 EST Patient request to have blood glucose taken at midnight rather than be woken up at 0200 for it. * Mona Cope RN - 11/09/2023 1900 EST Assume care of patient. Resting comfortably in bed. C/O of pain of 7 to left foot. Foot elevated for comfort. No other distress noted at this time. Educate patient on importance of a balance diet to lessen hypoglycemia. Patient verbalizes understanding. Care ongoing. * Kaye Lino RN - 11/09/2023 1842 EST Assumed care at 0700. Pt.alert/oriented x3, but unsteady and delayed response upon waking. BG 30. Gave 4oz. OJ, pt. Immediately vomited. No IV access, pt. Given apple juice and straight sugar PO witheventual BG 112. IV access established, D50 given. BG remained low all day until diet changed. D50 given in afternoon for BG 69. BG prior to dinner 122, pt. Ate most of dinner. Fingerstick frequency increased to q4h. Pt. Continent B/B, showered today. L heel dressing changed. * Jewel Ordaz MD - 11/09/2023 1031 EST Family Medicine Progress Note Service Date: 11/09/2023 Admit Date: 11/07/2023 1:39 Reason for Admission: 57 y.o. male admitted with a chief complaint of foot wound and now with a principal diagnosis of moderate diabetic foot infection. 24 Hour Events: - NAEO Subjective/Objective Subjective Pt reports that he is feeling nauseous this morning and generally worse than he was yesterday. Reports abdominal pain and general malaise. He feels that symptoms may be related to his covid diagnosis. Throughout interview pt was mildly confused. Nursing checked finger stick and sugar was 30. Improvement to mental status with D5, juice, and sugar packets. Patient seen with at bedside this afternoon, both very clear that he is normally on 50units long acting insulin usually though he does not usually check blood sugar at home. Loves to eat as hedoes not partake in drugs/alcohol. Has not been eating much in hospital given dietary restrictions when calling to order and lack of options. Review of Systems A ten point review of systems was performed and was negative except for pertinent positives noted in the HPI Objective Vital Signs Temp: [36.2 ??C (97.2 ??F)-36.8 ??C (98.3 ??F)] , Heart Rate: [68 BPM] , Resp: [18-20] , BP: (138-170)/(62-145) , SpO2: [95 %-97 %] Physical Exam General: Sitting up in bed, conversant. HEENT: Normocephalic, atraumatic, normal sclera & conjunctivae, no nasal discharge, MMM Pulm: Breathing comfortably on room air, no respiratory distress, crackles bilaterally Cardio: Regular rate Abdomen: Non-distended Extremities: Left foot wrapped, did not take down dressing Neuro: Awake, alert, oriented x 3, moving all 4 extremities, mildly confused Skin: No rashes Psych: pleasant, NAD Is PICC or central line present? No, PICC/Central line not present. Labs Latest Reference Range & Units 11/09/23 08:26 Sodium 136 - 145 mmol/L 138 Potassium 3.5 - 5.0 mmol/L 5.2 (H) Chloride 96 - 110 mmol/L 97 CO2 22 - 32 mmol/L 28 Anion Gap 5 - 14 mmol/L 13 BUN 10 - 26 mg/dL 55 (H) Creatinine 0.66 - 1.25 mg/dL 9.18 (H) GFR, Calculated >60 mL/min/1.73m2 6 (L) Glucose, Serum 70 - 99 mg/dl 33 (LL) Calcium 8.5 - 10.5 mg/dL 8.0 (L) WBC 4.00 - 10.40 K/cmm 7.96 RBC 4.36 - 5.78 M/cmm 3.83 (L) Hemoglobin 13.8 - 17.3 g/dL 11.7 (L) HCT 39.5 - 50.2 % 36.0 (L) MCV 81 - 95 fL 94 MCH 27.6 - 33.0 pg 30.5 MCHC 32.8 - 36.4 g/dL 32.5 (L) RDW-CV <14.2 % 12.4 RDW-SD <46.0 fl 43.1 PLT 141 - 377 K/cmm 197 MPV 9.5 - 12.7 fL 12.0 (LL): Data is critically low (H): Data is abnormally high (L): Data is abnormally low Imaging MR FOOT WO CONTRAST LEFT Result Date: 11/08/2023 1. Superficial ulceration over the medial aspect of the calcaneus, moderate diffuse skin thickeningthroughout the ankle and imaged foot, and subcutaneous edema, compatible with cellulitis. 2. No organized or drainable collection or abscess formation seen. 3. No MR imaging evidence of osteomyelitis. I have personally reviewed the images and the above interpretation and agree with the findings. [id number] XR FOOT LEFT 3 OR MORE VIEWS Result Date: 11/07/2023 No erosive changes evident. [id number] . MR FOOT WO CONTRAST LEFT Result Date: 11/07/2023 Superficial ulceration over the medial aspect of the calcaneus, moderate diffuse skin thickening throughout the ankle and imaged foot, and subcutaneous edema, compatible with cellulitis. No organizedor drainable collection. No evidence of osteomyelitis. XR FOOT LEFT 3 OR MORE VIEWS Result Date: 11/07/2023 No erosive changes evident. [id number] . Assessment/Plan Assessment Gerson Bruner is a 57 y.o. male with a PMHx significant for ESRD (HD M/W/F), T2DM, HTN, HLD, PAD, tobacco dependence who presents as a direct transfer from [facility] with a diabetic foot infection s/p debridement 10/31 with wound culture growing staph aureus and klebsiella. Transferred to [facility] for dialysis while admitted. Given that wound had progressed after initial debridement on 10/31 in the ED at [facility], orthopedics was consulted for further debridement. Now s/p debridement on 11/08. Per ID, will transition antibiotics to oral Augmentin. Incidentally found to have COVID, treating with remdesivir given multiple comorbidities. Course c/b persistent hypoglycemia that may be PO intake related, will ensure safer range and adequate insulin plan prior to likely discharge tomorrow. Plan #Moderate Diabetic Foot Infection First diabetic foot infection. A1C of 11.6 on 11/07. No evidence of osteomyelitis on imaging. Now s/p debridement on 10/31 and 11/08. Clinically improving. Wound cultures (10/31) from [facility] growing GBS, K oxytoca (amox/clav-S), MSSA, and Rautella. Wound cultures from 11/08 pending. - MRI foot without evidence of osteomyelitis - Orthopedics consulted, appreciate recs - Debrided on 11/08 - NWB LLE, otherwise activity as tolerated - Aggressive elevation - Twice daily wet-to-dry dressing changes to be performed by nursing - Outpatient f/u w/ orthopedic foot + ankle clinic on discharge - referral placed - ID Consulted, appreciate recs - F/u wound cultures - Will stop Vancomycin, Metronidazole, and CTX (11/07-11/08) - Start PO amoxicillin/clavulanate 500/125 mg daily for a 3-4 week course (11/08- 11/29 or 12/06) pending clinical improvement - Consider outpatient endocrinology - No ID f/u - Flu Vaccine after discharge - Needs urgent podiatry referral for clinic in [facility] - Continue tylenol 1000 mg TID prn - PO dilaudid for moderate/severe pain #ESRD - HD M/W/F - Scheduled for dialysis today, will continue M/W/F - calcium carbonate 1000 mg TID with meals and during dialysis - sevelamer 1600 mg TID with meals - Epogen with dialysis - Vit D3 2,000 units daily - MVM daily #T2DM Pt previously reported WINCHER glargine 50U at bedtime. Has had severe hypoglycemia in AM on 11/08and 11/09 despite dialysis. A1C of 11.6 on 11/07 - Given recurrent hypoglycemia of 30 this morning despite reduced dose of glargine 20 units last night, will d/c glargine for this evening. - SSI TID, QHS - POCT glucose checks with meals and at bedtime - carb consistent diet #PAD Pulses in left foot difficult to palpate due to edema. Able to hear DP via doppler - Bilateral Duplex ultrasound completed, shows falsely elevated segmental pressures d/t arterial calcifications. - Left hallux brachial index demonstrated mild arterial insufficiency - Right hallux brachial index demonstarted no evidence of arterial insufficiency. - continue to monitor pulses #Peripheral Neuropathy - continue WINCHER pregabalin 150mg BID #Tobacco dependence - smokes 1 pack per day - nicotine replacement - patient would like to quit smoking to improve his health and chances at wound healing. Would benefit from discharging with nicotine replacement therapy, also counseled about 802-quits #Covid Asymptomatic, dx via swab at OSH presumably swabbed due to being admitted to the hospital. Saturating well on room air - daily CBC, BMP - remdesivir 200 mg day 1, followed by 100 mg x 4 days (11/07-11/11) #HTN - continue WINCHER carvedilol 12.5 mg BID - Continue WINCHER amlodipine 10 mg daily - Continue WINCHER olmesartan 10 mg daily #HLD - continue WINCHER atorvastatin 40 mg VTE Prophylaxis: Pharmacologic Prophylaxis: Enoxaparin (Lovenox) 40 mg SQ daily Code: Full Code Discharge Plan: likely tomorrow pending glucose curve Consults: Ortho Patient discussed with Dr. Sushma Aly M.D. 11/09/2023 10:31 Family Medicine PGY2, [phone] Attending Attestation I interviewed and examined the patient. I have personally reviewed interval events, laboratory data, and imaging. I discussed the case with the inpatient resident team. I agree with findings and planof care as documented by the resident (or have edited in purple). Jewel Ordaz MD 11/09/2023 23:49 * Sunita Rosa, [facility] - 11/08/2023 7605 EST Pharmacy Note: Dialysis Vancomycin Monitoring Gerson Bruner is a 57 y.o. male who was receiving Vancomycin IV per Dialysis Protocol for treatment of diabetic foot infection. Other anti-infectives: Ceftriaxone, metronidazole + remdesivir. Pertinent vitals and labs: Tmax: 37.8 C WBC: 9.98 K/cmm Pre-dialysis vancomycin level drawn on 11/08/2023 at 0628 = 9.8 mcg/ml. Assessment and Plan: 1) The pre-dialysis vancomycin level was below the target range of 10-20 mcg/mL per protocol. 2) Per the Pharmacy and Therapeutics committee, vancomycin would have been re- loaded @ 1300 mg (~ 15 mg/kg) IV x 1 dose at the end of dialysis then resumed at 900 mg IV q dialysis starting on 11/10/2023. Instead, the Infectious Disease service was consulted and the patient's antibiotics where streamlined to an oral option. Pharmacy will continue to follow. Thank you, SUNITA ROSA RPH Pager # [phone] For weekday evenings, nights, and weekends, please call the main pharmacy at [phone]. * Ricardo Lange - 11/08/2023 1501 EST [facility] CM attempted to speak with pt over the phone to complete case management assessment, pt room phone was busy. CM left a voicemail for pt spouse Hoda [phone] requesting a call back to discuss pt assessment. RICARDO LANGE Labor Mediator II Epic Chat Preferred 11/08/2023 15:01 * Kay Amador RD - 11/08/2023 1446 EST Renal Nutrition Initial Assessment: Medical Summary: 57 yr old adm with a diabetic foot infection. Was also found to be +COVID (is asymptomatic per notes). S/p debridement on 10/31/23 at [facility], and s/p excisional debridement today (11/08/23), Active Hospital Problems Diagnosis Date Noted *Diabetic foot infection ([facility]) 11/07/2023 COVID 11/07/2023 ESRD (end stage renal disease) ([facility]) 11/11/2022 Subjective: Unable to speak with pt today, was either asleep or busy with nursing. Nurse reports he's eating very well. Social Hx: Lives with his in [place], [place]. Dialyzes in [place]. Pertinent Past Medical History includes: Past Medical History: Diagnosis Date Asthma Mild Diabetes mellitus ([facility]) DM2 Hyperlipidemia Hypertension Stage 3 chronic kidney disease ([facility]) Unsteady gait when walking Past Surgical History: Procedure Laterality Date APPENDECTOMY BACK SURGERY CHOLECYSTECTOMY DIALYSIS FISTULA CREATION Left SHOULDER SURGERY Height: 177.8 cm (70) Weight : 86.7 kg (191 lb 2.2 oz) Wt Readings from Last 6 Encounters: 11/07/23 86.7 kg (191 lb 2.2 oz) 11/05/23 87.9 kg (193 lb 12.6 oz) 11/03/23 88.6 kg (195 lb 5.2 oz) 11/01/23 90 kg (198 lb 6.6 oz) 10/29/23 90.9 kg (200 lb 6.4 oz) 10/27/23 90.6 kg (199 lb 11.8 oz) Body mass index is 27.43 kg/m??. Dialysis Prescribed Weight: 86.5 kg Usual Wt Post HD: 86.3-86.5 kg Interdialytic Fluid Gains: 1.6-3.3 kg Weight Hx: 86-87 kg since Jun 2023 88 kg Nov 2022 IBW (+/-10%): 73 kg Diet Order: Nutrition Orders (From admission, onward) Start Ordered 11/07/23 07 DIET CONSISTENT CARBOHYDRATE DIET EFFECTIVE NOW Question Answer Comment Sodium restriction: No restriction Fluid restriction: No restriction 11/07/23 07 Nutritional Supplements: trial Sp K bar BID Dialysis Supplement Pass (prior to adm): Liquicel and uses protein powder at home Followed by outpatient RD at dialysis. Last seen 10/08/23. Food Allergies: NFKA Nutrition Focused Physical Findings: Overall appearance: well nourished Dentition: dentures Digestive Systems: Last BM not recorded Skin: Miller Scale 19 (nutrition 3) ulcer on L heel, s/p debridment, / pictures noted Thickening of nail and scabbed over on great toe, / pictures noted Urine: makes urine Edema: +1 non-pitting LLE; trace on RLE Nutrition Focused Physical Exam - not indicated, no recent weight loss, does not appear to be malnourished. Estimated Nutritional Needs: 2000 kcals ([place] [address] Jeor x 1.2) 88 g protein (1.2 g/kg using wt of 73 kg) Estimated Nutritional Intake: 100% all meals today. Pertinent Labs include: Recent Labs 11/07/23 0757 11/07/23 0758 11/08/23 0628 BUN -- 65* 80* NA -- 135* 137 K -- 5.1* 5.1* CL -- 103 99 CO2 -- 17* 18* CALCIUM -- 8.1* 7.9* PHOS -- -- 9.8* PLT 247 -- 270 Lab Results Component Value Date LABALBU 3.1 (L) 10/27/2023 LABALBU 3.1 (L) 09/27/2023 LABALBU 3.2 (L) 08/30/2023 LABALBU 3.2 (L) 07/26/2023 Lab Results Component Value Date CALCIUM 7.9 (L) 11/08/2023 CALCCA 9.1 10/27/2023 PHOS 9.8 (H) 11/08/2023 MG 2.5 10/27/2023 PTH 707 (H) 10/27/2023 VITD 21 (L) 10/27/2023 MCV 93 11/08/2023 [id number] 607 10/27/2023 FOLATE >24.0 10/27/2023 HGBA1C 11.6 (H) 11/07/2023 Recent Labs 11/07/23 1806 11/07/23 2029 11/08/23 0755 11/08/23 0850 11/08/23 0916 11/08/23 0947 11/08/23 1158 11/08/23 1422 GLUCOSEPOC 157* 149* 83 69* 75 103* 172* 189* Pertinent Medications include: Current Facility-Administered Medications Medication Route Frequency acetaminophen (TYLENOL) tablet 1,000 mg oral Q8H PRN amLODIPine (NORVASC) tablet 10 mg oral DAILY atorvastatin (LIPITOR) tablet 40 mg oral DAILY calcium carbonate (TUMS) tablet 500 mg (200 mg elemental calcium) 2 Tablet oral TID WC [START ON 11/10/2023] calcium carbonate (TUMS) tablet 500 mg (200 mg elemental calcium) 2 Tablet oral EVERY MON, WED, FRI (DIALYSIS) carvediloL (COREG) tablet 12.5 mg oral BID (BREAKFAST/DINNER) cefTRIAXone (ROCEPHIN) 1,000 mg in sodium chloride (NS MBP) 50 mL IVPB intravenous Q24H [START ON 11/09/2023] cholecalciferol (Vitamin D3) tablet 2,000 Units oral DAILY dextrose 50 % solution 12.5 g intravenous PRN epoetin ken (EPOGEN) 20,000 unit/2 mL injection 1,000 Units intravenous EVERY MON, WED, FRI (DIALYSIS) glucagon injection 1 mg intramuscular PRN HYDROmorphone (DILAUDID) tablet 2-4 mg oral Q4H PRN insulin aspart U-100 (NOVOLOG FLEXPEN) injection subcutaneous TID WC insulin glargine (LANTUS SOLOSTAR/SEMGLEE) injection pen 20 Units subcutaneous QHS lidocaine (PF) 10 mg/mL (1 %) injection 2 mg intradermal PRN metroNIDAZOLE (FLAGYL) tablet 500 mg oral Q12H multivitamin (NEPHROVITE) 0.8 mg tablet 1 Tablet oral QHS nicotine (NICODERM CQ) 21 mg/24 hr patch 1 Patch transdermal DAILY olmesartan (BENICAR) tablet 10 mg oral DAILY pregabalin (LYRICA) capsule 150 mg oral BID remdesivir 100 mg in sodium chloride (NS) 0.9 % 100 mL IVPB intravenous Q24H sevelamer carbonate (RENVELA) tablet 1,600 mg oral TID WC Assessment: Nutrition/ Adequacy: Pt with good po intake, good appetite. Per his nurse he is eating 100% at his meals today. Per notes from OP RD good po intake. Usually eats 1-2 protein sources daily. Weight stable for ~ 1 year. Albumin has been low for some time now. S/p debridement of his foot ulcer, needs for protein are high. Was taking liquacel and using protein powder at home - will trial a special K bar BID (was on this in the past). Weight/ Volume: some fluid gains high WINCHER. Currently not on a FR. Electrolytes: Na, Mg, K all acceptable; on a 2 K bath. CO2 level low. CKD - Mineral Bone Disorder: Calcium low, corrected calcium on 10/27 was acceptable. 1000 mg Tums at HD ordered (was on WINCHER) Phos high. Currently on 1600 mg sevelemer TID at meals and also on calcium carbonate 1000 mg TID atmeals. Apparently WINCHER pt wasn't taking his sevelemer and was only taking Tums at meals. Recommend check a pre-dialysis phos. PTH trending up, would consider adding 0.25 calcitriol at HD once phos levels improve to <5.5. Vitamins/ Minerals: B12 and folate acceptable. Was taking a regular MVM WINCHER. Renal vitamin ordered.Vit D level low. 2000 units Vit D3 supplement ordered. Diabetes Management: last A1c 11.6% on 11/07/23. Blood sugars acceptable last 1-2 days; on lantus and novolog. Nutrition Risk Level: Moderate (2) Medical Nutrition Therapy Plan and Recommendations: Recommend change diet to Renal Diet with FR. Trial Special K bar BID for added protein. Recommend check pre-dialysis phos. Recommend 0.25 calcitriol at HD once phos improves <5.5. Monitor po, weights, labs, acceptance to supplements, plan of care. KAY AMADOR RD, CD (Call PAS or use [employer] (Ditto) to page RD covering this unit) * Michelle Rojo RN - 11/08/2023 0908 EST Data: Assumed care at 0700. Patient is AOx3, continent x2, ambulatory with 1x assist / cane (walking stick). On RA, no telemetry needs, IV access in RUE. COVID+. Action: Meds given according to MAR, hourly rounding and safety checks completed. In room dialysis completed mid day, dialysis nurse in room throughout. Assisted with ordering meals. PRN dilaudid andtylenol given for pain in foot and back, PRN zofran given for nausea. Response: Patient resting in bed, call mitchell within reach, able to make needs known. MICHELLE ROJO RN 11/08/2023 9:08 * Jewel Ordaz MD - 11/08/2023 0707 EST Family Medicine Progress Note Service Date: 11/08/2023 Admit Date: 11/07/2023 1:39 Reason for Admission: 57 y.o. male admitted with a chief complaint of foot wound and now with a principal diagnosis of moderate diabetic foot infection. 24 Hour Events: - Wound debrided by orthopedics overnight Subjective/Objective Subjective Pt reports that he is feeling nauseous this morning after drinking orange juice to address hypoglycemic after waking up. Denies any other complaints. Denies any SOB, chest pain. Pain is well controlled. He is looking forward to eating breakfast. Review of Systems A ten point review of systems was performed and was negative except for pertinent positives noted in the HPI Objective Vital Signs Temp: [35.6 ??C (96.1 ??F)-37.8 ??C (100 ??F)] , Heart Rate: [75 BPM-84 BPM] , Resp: [16-20] , BP: (148-177)/(70-95) , SpO2: [76 %-100 %] Physical Exam General: Sitting up in bed comfortably, conversant. HEENT: Normocephalic, atraumatic, normal sclera & conjunctivae, no nasal discharge, MMM Pulm: Breathing comfortably on room air, no respiratory distress Cardio: Regular rate Abdomen: Non-distended Extremities: Left foot wrapped, did not take down dressing Neuro: Awake, alert, oriented x 3, moving all 4 extremities Skin: No rashes Psych: pleasant, NAD Is PICC or central line present? No, PICC/Central line not present. Labs Latest Reference Range & Units 11/08/23 06:28 Sodium 136 - 145 mmol/L 137 Potassium 3.5 - 5.0 mmol/L 5.1 (H) Chloride 96 - 110 mmol/L 99 CO2 22 - 32 mmol/L 18 (L) Anion Gap 5 - 14 mmol/L 20 (H) BUN 10 - 26 mg/dL 80 (H) Creatinine 0.66 - 1.25 mg/dL 11.19 (H) GFR, Calculated >60 mL/min/1.73m2 5 (L) Glucose, Serum 70 - 99 mg/dl 23 (LL) Calcium 8.5 - 10.5 mg/dL 7.9 (L) (LL): Data is critically low (H): Data is abnormally high (L): Data is abnormally low Latest Reference Range & Units 11/08/23 06:28 WBC 4.00 - 10.40 K/cmm 9.98 RBC 4.36 - 5.78 M/cmm 3.58 (L) Hemoglobin 13.8 - 17.3 g/dL 11.1 (L) HCT 39.5 - 50.2 % 33.1 (L) MCV 81 - 95 fL 93 MCH 27.6 - 33.0 pg 31.0 MCHC 32.8 - 36.4 g/dL 33.5 RDW-CV <14.2 % 12.1 RDW-SD <46.0 fl 41.1 PLT 141 - 377 K/cmm 270 MPV 9.5 - 12.7 fL 11.8 (L): Data is abnormally low Imaging MR FOOT WO CONTRAST LEFT Result Date: 11/08/2023 1. Superficial ulceration over the medial aspect of the calcaneus, moderate diffuse skin thickeningthroughout the ankle and imaged foot, and subcutaneous edema, compatible with cellulitis. 2. No organized or drainable collection or abscess formation seen. 3. No MR imaging evidence of osteomyelitis. I have personally reviewed the images and the above interpretation and agree with the findings. [id number] XR FOOT LEFT 3 OR MORE VIEWS Result Date: 11/07/2023 No erosive changes evident. [id number] . MR FOOT WO CONTRAST LEFT Result Date: 11/07/2023 Superficial ulceration over the medial aspect of the calcaneus, moderate diffuse skin thickening throughout the ankle and imaged foot, and subcutaneous edema, compatible with cellulitis. No organizedor drainable collection. No evidence of osteomyelitis. XR FOOT LEFT 3 OR MORE VIEWS Result Date: 11/07/2023 No erosive changes evident. [id number] . Assessment/Plan Assessment Gerson Bruner is a 57 y.o. male with a PMHx significant for ESRD (HD M/W/F), T2DM, HTN, HLD, PAD, tobacco dependence who presents as a direct transfer from [facility] with a diabetic foot infection s/p debridement 10/31 with wound culture growing staph aureus and klebsiella. Transferred to [facility] for dialysis while admitted. Given that wound has progressed after initial debridement on 10/31 in the ED at [facility], orthopedics was consulted for further debridement. Will transition patient's antibiotic regimen to vancomycin dosed with HD sessions and ceftriaxone (PCN allergy is historical and mild, has received cephalosporins such as keflex seemingly without issue). Incidentally found to have COVID, treating with remdesivir given multiple comorbidities. Plan #Moderate Diabetic Foot Infection Reports this is his first diabetic foot infection. Does not follow with podiatry outpatient. Developed over the last week or so, worsened despite debridement in [facility] ED on 1/7. XR and CT 10/31without evidence of osteomyelitis. Repeat XR 11/05 without bony involvement as well. ESR 121, CRP 107 at outside hospital. - MRI foot without evidence of osteomyelitis - Orthopedics consulted, appreciate recs - Debrided on 11/08 - NWB LLE, otherwise activity as tolerated - Aggressive elevation - Twice daily wet-to-dry dressing changes to be performed by nursing - Outpatient f/u w/ orthopedic foot + ankle clinic on discharge - referral placed - ID Consulted, appreciate recs - Vancomycin with HD, starting 11/08, dosing per pharmacy - Start CTX 1 g daily - S/p ciprofloxacin and metronidazole at OSH - Per Care Everywhere, culture at [facility] grew Staphylococcus aureus and Klebsiella oxytocin both sensitive to Cipro, resistant to ?Vancomycin. - tylenol 1000 mg TID prn - PO dilaudid for moderate/severe pain #ESRD - HD M/W/F - Scheduled for dialysis today, will continue M/W/F - calcium carbonate 1000 mg TID with meals - sevelamer 1600 mg TID with meals #T2DM On WINCHER glargine 50U QHS - Given hypoglycemic to 23 this morning will decrease Glargine to 20 units at bedtime - SSI - POCT glucose checks with meals and at bedtime - carb consistent diet #PAD Pulses in left foot difficult to palpate due to edema. Able to hear DP via doppler - Bilateral Duplex ultrasound completed, shows falsely elevated segmental pressures d/t arterial calcifications. - Left hallux brachial index demonstrated mild arterial insufficiency - Right hallux brachial index demonstarted no evidence of arterial insufficiency. - continue to monitor pulses #Peripheral Neuropathy - continue WINCHER pregabalin 150mg BID #Tobacco dependence - smokes 1 pack per day - nicotine replacement - patient would like to quit smoking to improve his health and chances at wound healing. Would benefit from discharging with nicotine replacement therapy, also counseled about 802-quits #Covid Asymptomatic, dx via swab at OSH presumably swabbed due to being admitted to the hospital. Saturating well on room air - daily CBC, BMP - remdesivir 200 mg day 1, followed by 100 mg x 2 days (11/07-11/09) #HTN - continue WINCHER carvedilol 12.5 mg BID - restart WINCHER amlodipine 10 mg daily - restart WINCHER olmesartan 10 mg daily #HLD - continue WINCHER atorvastatin 40 mg VTE Prophylaxis: Pharmacologic Prophylaxis: Enoxaparin (Lovenox) 40 mg SQ daily Code: Full Code Discharge Plan: Pending hospital course, likely home in coming days on PO abx pending ID recs Consults: Ortho Patient discussed with Dr. Sushma Aly M.D. 11/08/2023 10:16 Family Medicine PGY2, [phone] Attending Attestation I interviewed and examined the patient on 11/08/23. I have personally reviewed interval events, laboratory data, and imaging. I discussed the case with the inpatient resident team. I agree with findings and plan of care as documented by the resident (or have edited in purple). Jewel Ordaz MD 11/09/2023 0:52 * Debra Parr MD - 11/07/2023 1146 EST Family Medicine Progress Note Service Date: 11/07/2023 Admit Date: 11/07/2023 1:39 Reason for Admission: 57 y.o. male admitted with a chief complaint of foot wound and now with a principal diagnosis of moderate diabetic foot infection. 24 Hour Events: - admitted as a transfer overnight Subjective/Objective Subjective Doing okay this AM. Pain is tolerable, mostly localized in left foot/ankle. Denies fever/chills, headache, chest pain, shortness of breath, cough, sore throat, rhinorrhea. Does not believe the positive COVID result from [place], I feel totally fine. Later in the AM endorsing more pain in foot, requesting pain medication that is not tylenol as thisdoes not work for me, it only treats headaches. Review of Systems A ten point review of systems was performed and was negative except for pertinent positives noted in the HPI Objective Vital Signs Temp: [35.6 ??C (96.1 ??F)-36.3 ??C (97.3 ??F)] , Heart Rate: [67 BPM-75 BPM] , Resp: [16-18] , BP:(149-186)/(75-80) , SpO2: [93 %-100 %] Physical Exam General: Sitting up in bed comfortably, conversant. Was initially cooperative but then became upsetregarding pain management HEENT: Normocephalic, atraumatic, normal sclera & conjunctivae, no nasal discharge, MMM Pulm: Breathing comfortably on room air, no respiratory distress Cardio: Regular rate Abdomen: Non-distended Extremities: Half dollar sized lesion on medial aspect of left heel with spreading erythema towardsleft ankle, edema present on dorsum of foot (+foul odor). Has sensation to light touch although decreased when compared to proximal areas. DP pulse not palpable on left foot although heard via Doppler Neuro: Awake, alert, oriented x 3, moving all 4 extremities Skin: No rashes Psych: Initially irritable although mood improved throughout the day Is PICC or central line present? No, PICC/Central line not present. Medications Reviewed: med changes denoted in plan Labs Reviewed: pertinent values noted in A&P 11/07/23 07:58 C-Reactive Protein 75.8 (H) 11/07/23 07:57 Sed. Rate Westergren >100 (H) Imaging Reviewed: No new imaging, awaiting MR foot today. Assessment/Plan Assessment Gerson Bruner is a 57 y.o. male with a PMHx significant for ESRD (HD M/W/F), T2DM, HTN, HLD, PAD, tobacco dependence who presents as a direct transfer from [facility] with a diabetic foot infection s/p debridement 10/31 with wound culture growing staph aureus and klebsiella. Transferred to [facility] for dialysis while admitted. Given that wound has progressed after initial debridement on 10/31 in the ED at [facility], orthopedics was consulted for further debridement. Will transition patient's antibiotic regimen to vancomycin dosed with HD sessions and ceftriaxone (PCN allergy is historical and mild, has received cephalosporins such as keflex seemingly without issue). Incidentally found to have COVID, treating with remdesivir given multiple comorbidities. Plan #Moderate Diabetic Foot Infection Reports this is his first diabetic foot infection. Does not follow with podiatry outpatient. Developed over the last week or so, worsened despite debridement in [facility] ED on 10/31. XR and CT 10/31without evidence of osteomyelitis. Repeat XR 11/05 without bony involvement as well. ESR 121, CRP 107 at outside hospital. - MRI foot ordered, will f/u results - orthopedics consulted, appreciate recs, anticipate need for debridement - vancomycin with HD, to start Wednesday 11/08, dosing per pharmacy - start CTX 1 g daily - s/p ciprofloxacin and metronidazole at OSH - tylenol 1000 mg TID prn - PO dilaudid for moderate/severe pain #ESRD - HD M/W/F - will need Nephrology consult 11/08 to facilitate dialysis scheduling - calcium carbonate 1000 mg TID with meals - sevelamer 1600 mg TID with meals #T2DM Will lower Glargine to 40 units at bedtime given hypoglycemia this morning - SSI - POCT glucose checks with meals and at bedtime - carb consistent diet #PAD Pulses in left foot difficult to palpate due to edema. Able to hear DP via doppler - continue to monitor pulses #Peripheral Neuropathy - continue WINCHER pregabalin 150mg BID #Tobacco dependence - smokes 1 pack per day - nicotine replacement - patient would like to quit smoking to improve his health and chances at wound healing. Would benefit from discharging with nicotine replacement therapy, also counseled about 802-quits #Covid Asymptomatic, dx via swab at OSH presumably swabbed due to being admitted to the hospital. Saturating well on room air - daily CBC, BMP - remdesivir 200 mg day 1, followed by 100 mg x 2 days #HTN - continue WINCHER carvedilol 12.5 mg BID - hold WINCHER amlodipine 10 mg daily - hold WINCHER olmesartan 20 mg daily - consider restarting antihypertensives pending clinical trajectory, BP monitoring #HLD - continue WINCHER atorvastatin 40 mg VTE Prophylaxis: Pharmacologic Prophylaxis: Enoxaparin (Lovenox) 40 mg SQ daily Code: Full Code Discharge Plan: Pending hospital course Consults: Ortho Patient discussed with Dr. Melissa Rich and [facility] team. Debra Parr MD Family Medicine PGY3, Pager #[phone] 11/07/23, 11:49 Cosigned by Melissa Rich MD at 11/07/2023 18:29 EST Associated attestation - Melissa Rich MD - 11/07/2023 1829 EST ATTENDING ATTESTATION: Date of service: 11/07/23 I have seen and examined the patient. I personally reviewed laboratories studies, radiographic studies, ECG, and prior records, as indicated. I discussed the case with: the resident team. I agree with and have edited (in strike-through and blue font) the findings and plan of care as documented in the note. Ortho consulted for wound debridement. On Vanco and CTX per Green book. Dilaudid for pain. Will need to let renal know that patient is here so that he can get dialysis on 11/08 per his usual schedule. Lowered his Lantus dose given hypoglycemia this morning. COVID + though asymptomatic at this time- decided to give Remdesivir given his multiple comorbidities and high risk patient. Dr Ordaz to assume care tomorrow. MELISSA RICH MD hospitalist 11/07/2023 18:27 * Michelle Rojo RN - 11/07/2023 0743 EST Data: Assumed care at 0700. Patient is AOx3, ambulatory with 1x assist and walking stick. Continentx2 using the urinal / walks to the bathroom. On RA, no telemetry needs, IV access in the RAC. Action: Meds given according to MAR, hourly rounding and safety checks completed. Wound cleaned, new mepilex applied. Old IV removed d/t leaking, new one placed. MRI pre-procedure form filled out andsent. IV abx started. PRN dilaudid and tylenol given for foot pain. Response: Patient resting in bed, call mitchell within reach, able to make needs known. MICHELLE ROJO RN 11/07/2023 7:43 * Epi Nicole RN - 11/07/2023 0301 EST Images from the original note were not included. FOUR EYES SKIN ASSESSMENT Four Eyes skin assessment was performed on admission to the unit by Epi Nicole RN and VIDYA Guerrero. Patient has the following devices at the time of this assessment: Peripheral IV. Device related pressure injury present? No Areas of concern: Fill in detail for areas of concern [] Occiput [] Nose [] Ear [] Lip [] Scapula [] Spinous process [] Shoulder [x] Elbow (Left) [] Iliac crest [] Sacrum/coccyx [] Ischial tuberosity [] Trochanter [] Knee [] Malleolus [x] Heel Left and right [x] Toe (Multiple) [] Other: Patient has several sores on several toes, and left heel (surgical wound) and inbetween the pinky and 4th toe (left), also has scabbed area on his left elbow Last Miller Score: 18 Instructions: Add LDA for any identified wounds Add Wrens image for any suspected PI or non surgical wounds Order wound consult if suspected PI identified If Miller is < or = to 16, initiate Pressure Injury Prevention Bundle ([id number]). 11/07/2023 3:03 documented in this encounter H&P Notes * Wayne Salazar MD - 11/07/2023 0328 EST Hospital Medicine Admission History & Physical Service Date: 11/07/2023 Admit Date: 11/07/23 Primary Care Provider: Ken Greer Chief Complaint: Diabetic Foot infection, left HPI Gerson Bruner is a 57 y.o. male with a PMHx of ESRD (on MWF hemodialysis), T2DM, HTN, HLD, PAD, diabetic neuropathy, tobacco dependence who presents as a direct transfer from [facility] with a diabetic foot infection of his left foot and covid. On 10/31 he presented to [facility] with a left foot wound. CT notable for an abscess which was subsequently aspirated. Cultures from the wound grew staph aureus and klebsiella. Plan upon discharge was to receive vancomycin with HD. On 11/05 he received vancomycin at dialysis in [place] prior to re-presenting to the [facility] ED later that day where he received cipro + flagyl. Labs were notable for CRP 152, ESR 12, WBC 11. Note from [facility] on 10/31: 57-year-old diabetic presents to the emergency room with a worsening ulcer on the medial aspect of his left heel which has been present for at least a couple of weeks. Patient is not a terrific historian. At least over the past couple of days he has had increasing pain in the left heel which radiates up into the posterior aspect of the left calf. It is painful enough that he has had difficulty sleeping. He has had no overt prior diabetic foot infections but notes that he frequently gets cracks in his skin. Tells me he has had a remote vascular eval but he does not remember the results of thatexamination or where it was performed. He has been on dialysis for the last 3 years. Patient has no history of exertional chest pain or pressure. He lives with his in [place] and it does not sound like he does much in the way of walking. No current cough or sputum production. Hehas a smoking history. No abdominal pain easy bleeding or bruising. On examination the patient has a palpable 2+ left femoral pulse. His left calf and left foot are edematous. He has some mild erythema of the calf. He has a crack in the skin on the medial aspect of his left heel which has black eschar surrounding it. It looks more erythematous in the area of the wound but no obvious fluctuance. Has tenderness to palpation of the left calf. Unable to feel pulses in his left foot this may be in part secondary to the edema. Noninvasive studies show biphasic flow in the dorsalis pedis and no arterial signal in the left posterior tibial. Plain films of the patient's foot show no evidence of osteomyelitis. Review of Systems A complete 10 point ROS was performed and pertinent positive and negative findings listed in HPI, otherwise negative. Past Medical History: Diagnosis Date Asthma Mild Diabetes mellitus ([facility]) DM2 Hyperlipidemia Hypertension Stage 3 chronic kidney disease ([facility]) Unsteady gait when walking Past Surgical [...] Neg Hx Retinal Detachment Neg Hx Medications Prior to Admission Medication Sig amLODIPine (NORVASC) 10 mg tablet Take 1 Tablet by mouth daily. atorvastatin (LIPITOR) 40 mg tablet Take 1 Tablet by mouth daily. calcium carbonate (TUMS) 200 mg calcium (500 mg) tablet,chewable Take 1 Tablet by mouth 3 times daily with meals. carvediloL (COREG) 12.5 mg tablet Take 1 Tablet by mouth 2 times daily. famotidine (PEPCID) 40 mg tablet Take 1 Tablet by mouth daily. FLOVENT HFA 110 mcg/actuation inhaler Inhale 1 Puff as directed. furosemide (LASIX) 20 mg tablet Take 1 Tablet by mouth 2 times daily. LEVEMIR FLEXPEN 100 unit/mL (3 mL) injectable pen MULTIVITAMIN ORAL Take by mouth. olmesartan (BENICAR) 5 mg tablet TAKE ONE TABLET BY MOUTH EVERY DAY STOP HCTZ pregabalin (LYRICA) 150 mg capsule TAKE ONE CAPSULE BY MOUTH TWICE A DAY, MAXIMUM DAILY DOSE = 2 CAPSULES VICTOZA 3-JULY 0.6 mg/0.1 mL (18 mg/3 mL) injectable pen Allergies Allergen Reactions Clindamycin Gabapentin Penicillins Pregabalin Other reaction(s): Unsure Sertraline Other reaction(s): Unsure Objective Vitals Temp: [36.3 ??C (97.3 ??F)] , Heart Rate: [67 BPM] , Pulse: [74] , Resp: [16-18] , BP: (149-186)/(76-80) , SpO2: [93 %-97 %] , Numeric Pain Level (Scale 1-10): 6 Weight: Weight : 86.7 kg (191 lb 2.2 oz) Body mass index is 27.43 kg/m??. Physical Exam General: NAD, conversant, pleasant, poor historian HEENT: EOMI, supple neck CV: RRR Pulm: CTAB, normal work of breathing GI: soft, NTND, normal BT Ext: left heel s/p debridement with erythema spreading to ankle Neuro: no focal neuro deficits Skin: left heel with ulcer with necrotic tissue and surrounding erythema, no drainage Psych: normal affect Labs Imaging No new imaging. No results found. Assessment Gerson Bruner is a 57 y.o. male with a PMHx significant for ESRD (HD M/W/F), T2DM, HTN, HLD, PAD, tobacco dependence who presents as a direct transfer from [facility] with a diabetic footinfection s/p I&D with wound culture growing staph aureus and klebsiella. Currently receiving vancomycin with HD, ciprofloxacin, and metronidazole. CT foot on 10/31 without evidence of osteomyelitis. Incidentally found to have covid when swabbed at [facility], plan to start remdesivir given multiple comorbidities. Plan for Ortho consult, ID consult, and MRI foot in the morning. Consult Nephrology to set up HD. Plan Diabetic Foot infection, left - MRI foot ordered - Consult Ortho in the morning - vancomycin with HD - continue ciproflaxacin 400mg IV daily for klebsiella coverage - continue metronidazole 500mg q8h - tylenol 650 mg q4h prn - ID consult ESRD - HD M// - consult Nephrology T2DM - 50u glargine qhs - SSI PAD - consider Vascular consult during admission Peripheral Neuropathy - continue WINCHER pregabalin 150mg BID Tobacco dependence - smokes 1 pack per day - nicotine replacement Covid - daily CBC, BMP - start remdesivir HTN - continue WINCHER carvedilol 12.5 mg BID - hold WINCHER amlodipine 10 mg daily - hold WINCHER olmesartan 20 mg daily HLD - continue WINCHER atorvastatin 40 mg VTE Prophylaxis Pharmacologic Prophylaxis: holding, should patient require further procedures Code: Full Code Discharge Plan Pending hospital course Consults Ortho , Nephrology, ID Admission status Inpatient admission due to anticipated duration of hospitalization is two midnights or greater due to diabetic foot infection. Patient discussed with Dr. Salazar. Mildred Tillman MD pgy-2 11/07/2023 6:56 ATTENDING ATTESTATION: Date of service: 11/07/2023 I have interviewed and examined the patient on 11/07/2023. I have personally reviewed the ECG, laboratory data, imaging studies, and prior records. I have discussed the case with Dr. Tillman ( resident). I agree with the findings and plan of care as documented in the resident's note. Additions or editsare documented in purple. Wayne Salazar MD 11/08/2023 3:56 documented in this encounter Procedure Notes * Ines Valles RN - 11/10/2023 1818 EST Dialysis Program Nursing Transfer Note Fellow responsible: No fellow; Daryl Costa while inpatient Diagnosis: ESRD History: Asthma Mild Diabetes mellitus ([facility]) DM2 Hyperlipidemia Hypertension Stage 3 chronic kidney disease ([facility]) Unsteady gait when walking Long-term Access Plan: Fistula URR Completed prior to transfer? no HD Orders Updated: (ETW, Heparin etc) No changes Antibiotics ordered: Home with PO antibiotics Follow-up Plan to Care: Outpatient podiatry and orthopedics Report called to: Melissa VALLES RN 11/12/2023 10:03 * Fiona Saunders RN - 11/10/2023 1133 ESTAssociated Order(s): HEMODIALYSIS Dialysis Program Nursing Acute-Care Note Kt/V: 1.19 Net fluid removal 2L Access: A/V Fistula, left upper Access function: Satisfactory Pre Post BP 153/83 162/79 Pulse 62 60 Temp 97.3f 97.2f Weight 93.8kg 91.8kg Method of weight: Bed Treatment Comments/Issues/concerns Mental Status Pre: A&Ox3 Mental Status Post: A&Ox3 Pain score: Pre: 0. Post: 0 Post dialysis system: Moderately clotted Arrived to patients room for 3hr HD treatment. Patient denies chest pain/SOB. Dialyzes through leftupper fistula, thrill/bruit present. 2-15g needles cannulated successful. Patient is unsure how much he typically pulls at dialysis. Machine does not have crit line. Initial UF goal set for 2.5L, will adjust as needed/BP tolerates. Patient able to reposition self q2hrs in bed. Weight discrepancy vsweight gain of 8.1kg since last treatment on 11/08/23. Meds given per DEC. Patient tolerated treatment well. Hemostasis achieved within 10 minutes. Report given to Kaden DASILVA * Mirian Ruiz PA-C - 11/10/2023 0800 EST PROCEDURE NOTE: HEMODIALYSIS [facility] NEPHROLOGY CONSULT SERVICE Please notify the Direct Service Professional Kiel Powers from [facility] Acute Dialysis in advance of tentative discharge date to confirm capacity for transfer back to outpatient dialysis unit. Code Status Full Code Admit Date 11/07/2023 Reason for Evaluation Hemodialysis for ESRD PLAN & RECOMMENDATIONS Lab Results Component Value Date NA 131 (L) 11/10/2023 K 5.8 (H) 11/10/2023 CL 96 11/10/2023 CO2 22 11/10/2023 MG 2.5 10/27/2023 Lab Results Component Value Date PUR 69.0 10/27/2023 BUNPRE 84 (H) 10/27/2023 BUNPOST 26 10/27/2023 #ESRD - Fluid Restriction 1.5 L fluid restriction every 24 hours - Renal diet restrictions - Electrolytes q dialysis or more frequently per primary team - Next Treatment: 11/10/23 Lab Results Component Value Date WBC 8.93 11/10/2023 RBC 3.26 (L) 11/10/2023 HGB 10.2 (L) 11/10/2023 HCT 30.0 (L) 11/10/2023 MCV 92 11/10/2023 MCH 31.3 11/10/2023 MCHC 34.0 11/10/2023 RDWCV 12.3 11/10/2023 RDWSD 41.8 11/10/2023 PLT 207 11/10/2023 MPV 12.2 11/10/2023 Lab Results Component Value Date [id number] 607 10/27/2023 LABIRON 22 10/27/2023 FERRITIN 564 (H) 10/27/2023 #Anemia of CKD - GEORGE: [facility] PA will manage with pharmacy; will continue epogen 1,000 units with dialysis - CBC at least weekly on Weds or for dialysis purposes #Infection: Diabetic foot infection without evidence of osteo and COVID positive. Culture of foot wound grew S. Aureus and Klebsiella at OSH per chart review. 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 Can continue on discharge as well - Continue tums with meals - Continue vitamin D3 2,000 units - Continue renal vitamin #Hypertension - UF as tolerated - Continue coreg, amlodipine, and olmesartan PROCEDURE 11/10/2023 Access/function: AVF 11/10/2023 Dialysis Rx Heparin with Dialysis: 4500 unit bolus and 1500 units/hour outpatient None ordered inpatient ASSESSMENT/SUBJECTIVE Gerson Bruner is a 57 y.o. male with a past medical history of ESRD r/t DM II on maintenance hemodialysis since 02/14/2019 who was admitted with diabetic foot infection and COVID-19. Treatment plan includes dialysis three times weekly and remdesivir. He is s/p wound debridement with ortho. No further orthopedic intervention necessary per ortho consult. Gesron Bruner seen and examined during hemodialysis today 11/10/2023 through window only due to COVID positive status. Prior dialysis 48 hours ago on 11/08/23; interdialytic gain of 8.1 kg. However, these have been bed weights and likely inaccurate. Ultrafiltration target is 2.5L. Patient stable during treatment; blood pressure was 155/71 and HR was 60 at time of assessment. He has some LE edema per dialysis nurse. OBJECTIVE Medications: Reviewed Imaging US ANKLE/BRACHIAL INDICE 11/08/23: Falsely elevated segmental pressures bilaterally due to arterial calcification. Left hallux brachial index demonstrated mild arterial insufficiency. Right hallux brachial index demonstarted no evidence of arterial insufficiency. MR FOOT WO CONTRAST LEFT 11/08/23: IMPRESSION 1. Superficial ulceration over the medial aspect of the calcaneus, moderate diffuse skin thickeningthroughout the ankle and imaged foot, and subcutaneous edema, compatible with cellulitis. 2. No organized or drainable collection or abscess formation seen. 3. No MR imaging evidence of osteomyelitis. XR FOOT LEFT 11/07/23: IMPRESSION No erosive changes evident. Surgeries/Major Invasive Procedures S/p debridement of foot wound with ortho on 11/08/23 PMH Past Medical History: Diagnosis Date Asthma Mild Diabetes mellitus ([facility]) DM2 Hyperlipidemia Hypertension Stage 3 chronic kidney disease ([facility]) Unsteady gait when walking PSH Past Surgical History: Procedure Laterality Date APPENDECTOMY BACK SURGERY CHOLECYSTECTOMY DIALYSIS FISTULA CREATION Left SHOULDER SURGERY Mirian Ruiz PA-C 11/10/2023 13:[address] Karrie Kowalski was on site and available for consultation. * Mirian Ruiz PA-C - 11/08/2023 1135 EST PROCEDURE NOTE: HEMODIALYSIS [facility] NEPHROLOGY CONSULT SERVICE Please notify the Direct Service Professional Kiel Powers from [facility] Acute Dialysis in advance of tentative discharge date to confirm capacity for transfer back to outpatient dialysis unit. Code Status Full Code Admit Date 11/07/2023 Reason for Evaluation Hemodialysis for ESRD PLAN & RECOMMENDATIONS Lab Results Component Value Date NA 137 11/08/2023 K 5.1 (H) 11/08/2023 CL 99 11/08/2023 CO2 18 (L) 11/08/2023 MG 2.5 10/27/2023 Lab Results Component Value Date PUR 69.0 10/27/2023 BUNPRE 84 (H) 10/27/2023 BUNPOST 26 10/27/2023 #ESRD - Fluid Restriction 1.5 L fluid restriction every 24 hours - Renal diet restrictions - Electrolytes q dialysis or more frequently per primary team - Next Treatment: 11/10/23 Lab Results Component Value Date WBC 9.98 11/08/2023 RBC 3.58 (L) 11/08/2023 HGB 11.1 (L) 11/08/2023 HCT 33.1 (L) 11/08/2023 MCV 93 11/08/2023 MCH 31.0 11/08/2023 MCHC 33.5 11/08/2023 RDWCV 12.1 11/08/2023 RDWSD 41.1 11/08/2023 PLT 270 11/08/2023 MPV 11.8 11/08/2023 Lab Results Component Value Date [id number] 607 10/27/2023 LABIRON 22 10/27/2023 FERRITIN 564 (H) 10/27/2023 #Anemia of CKD - GEORGE: [facility] PA will manage with pharmacy; will continue epogen 1,000 units with dialysis - CBC at least weekly on or for dialysis purposes #Infection: Diabetic foot infection without evidence of osteo and COVID positive. Culture of foot wound grew S. Aureus and Klebsiella at OSH per chart review. 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 male with a past medical history of ESRD r/t DM II on maintenance hemodialysis since 02/14/2019 who was admitted with diabetic foot infection and COVID-19. Treatment plan includes dialysis three times weekly and remdesivir. He is s/p wound debridement with ortho. No further orthopedic intervention necessary per ortho consult. Gerson Bruner seen and examined during hemodialysis today 11/08/2023 through window only due to COVID positive status. Prior dialysis 72 hours ago on 11/05/23; interdialytic gain of 0.2 kg; within target. Ultrafiltration target is 1L. Patient stable during treatment; blood pressure was 135/72 and HRwas 66 at time of assessment. OBJECTIVE Medications: Reviewed Imaging US ANKLE/BRACHIAL INDICE 11/08/23: Falsely elevated segmental pressures bilaterally due to arterial calcification. Left hallux brachial index demonstrated mild arterial insufficiency. Right hallux brachial index demonstarted no evidence of arterial insufficiency. MR FOOT WO CONTRAST LEFT 11/08/23: IMPRESSION 1. Superficial ulceration over the medial aspect of the calcaneus, moderate diffuse skin thickeningthroughout the ankle and imaged foot, and subcutaneous edema, compatible with cellulitis. 2. No organized or drainable collection or abscess formation seen. 3. No MR imaging evidence of osteomyelitis. XR FOOT LEFT 11/07/23: IMPRESSION No erosive changes evident. Surgeries/Major Invasive Procedures S/p debridement of foot wound with ortho on 11/08/23 PMH Past Medical History: Diagnosis Date Asthma Mild Diabetes mellitus ([facility]) DM2 Hyperlipidemia Hypertension Stage 3 chronic kidney disease ([facility]) Unsteady gait when walking PSH Past Surgical History: Procedure Laterality Date APPENDECTOMY BACK SURGERY CHOLECYSTECTOMY DIALYSIS FISTULA CREATION Left SHOULDER SURGERY Mirian Ruiz PA-C 11/08/2023 11:[address] Karrie Kowalski was on site and available for consultation. * Klaudia Roy RN - 11/07/2023 1209 EST Ultrasound dynamic guidance was used for peripheral line insertion. Name of arc welder apprentice: Klaudia Roy RN LDAINFO BLOCK Peripheral IV 11/07/23 1207 Anterior;Right Upper Arm (Active) 11/07/23 1207 Upper Arm Dressing Change Due: 11/14/23 Size (Gauge): 22 Catheter Length (Inches): 1.75 Catheter Brand: B Fabian Introcan Orientation: Anterior;Right Site: Inserted by: Inserted by RN;Ultrasound Guided Insertion attempts: 1 Local Anesthetic: Skin Antisepsis: 2% Chlorhexidine with IPA Removal Reason : Post Removal Assessment/Care: Size (Gauge): Catheter Length: IV Change Due: Orientation: Criteria to continue met? (chart all reasons) Continuous IV fluids 11/07/23 1208 Date Dressing Changed 11/07/23 11/07/23 1208 Dressing date clearly marked on PIV site? Yes 11/07/23 120 Site Assessment Clean/Dry/Intact 11/07/23 120 Line Status Blood returned;Clear;Flushed 11/07/23 1208 Dressing Status/Care Changed/New;Clean/Dry/Intact 11/07/23 1208 Dressing Type Transparent 11/07/23 1208 Patient response: tolerated well. Patient education: provided at bedside. Additional study information (vein depth, vein size, compressibility, patency, in-plane vs. [id number], surrounding structures and post procedure available on the images, accessed via the imaging tab.) KLAUDIA ROY RN 11/07/2023 documented in this encounter Consult Notes * Haydee Cabrera MD - 11/08/2023 1222 EST INFECTIOUS DISEASES INITIAL CONSULT Patient: Gerson Bruner : 1965 Service: Medicine Date of Admission: 11/07/2023 Date of Consultation: 11/08/23; 12:23 Requested by: Jewel Ordaz MD Reason for consult: Left Heel diabetic foot Infection CHIEF COMPLAINT: Left Heel Wound HISTORY OF PRESENT ILLNESS: Mr. Bruner is a 57 y.o. 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 from [facility] with diabetic foot osteomyelitis. Xander first noticed a scratch on the lateral side of his left wound several weeks ago. At first he didn't think much of it. There was no burning, pain, or significant drainage. His helped him with dressings (band-aids). He doesn't recall hitting his foot against anything, but then again doesn't have much feeling at all in his feet. He had no systemic symptoms, including fever, chills, or malaise. He does not have a psychiatric lpn. Xander then presented to [facility] on 10/31/23 to get the left heel ulcer addressed. His wound was debrided of non viable tissue and a wound culture was taken. He was planned for a course ofIV vancomycin with dialysis and discharged from the ER. After discharge, he thought the wound smelled bad. His didn't think there was much drainage at all from the wound. They hadn't noticed anyredness extending up his leg. He then re-presented to [facility] 5 days later (11/05/23)with fever to 102. He was found to have COVID and transferred to [facility]. Yesterday (11/08/23) orthopedic surgery preformed additional debridement. The wound did not probe tobone, an additional tissue culture was sent. Today he feels ok. He is surprised about the amount of debridement that had to be done. He has sharp pains in his foot. He has no cough or shortness of breath. No further fever. Appetite is ok, limited by hospital food. No nausea, vomiting or diarrhea. PAST MEDICAL HISTORY ESRD Type II Diabetes mellitus Diabetic Neuropathy Hypertension Hyperlipidemia Tobacco Use SURGICAL HISTORY: - 10/31/23 bedside I&D of L heel ulcer ([facility]) - 11/07/23 bedside I&D of L heel ulcer ([facility]) 09/05/18 LUE fistula FOREIGN BODIES: none SOCIAL HISTORY: [place]. Currently unemployed, prior work at various [employer] andends jobs. Lives at home with his . Smokes. Occasional alcohol use. ALLERGIES: Personally reviewed and discussed by me. Penicillin and clindamycin allergy listed in the chart. Gerson thinks he may have had a reaction as a child, and was told not to take penicillins. He doesn't remember what reaction occurred. MEDICATIONS: Reviewed in DEC. Vancomycin 11/03 - current Ceftriaxone 11/07 - current Remdesivir 11/07 - current Priors Ciprofloxacin 11/07 Metronidazole 11/07 PHYSICAL EXAM: VS: BP (!) 170/83 Pulse 76 Temp 37.8 ??C (100 ??F) (Tympanic) Resp 20 Ht 177.8 cm (70) Wt 86.7 kg (191 lb 2.2 oz) SpO2 96% BMI 27.43 kg/m?? GENL: pleasant, sitting up in bed, dialysis running. His was at bedside. EENT: poor dentition CARD: no murmur PULM: clear to auscultation bilaterally ABDM: non-distended, soft, non-tender EXTR: warm and well perfused, no edema L heel with debrided ulcer, about 2 cm round, supferficial, granulation tissue on the edges, mild erythema surrounding. No induration, fluctuance, non tender, no drainage. SKIN: no rashes NEURO: awake, alert ACCESS: HD Catheter LABORATORY: Reviewed in detail CBC: Recent Labs 11/07/2375611/08/23627 WBC 8.14 9.98 RBC 3.95* 3.58* HGB 12.1* 11.1* HCT 36.2* 33.1* MCV 92 93 MCH 30.6 31.0 MCHC 33.4 33.5 PLT 247 270 SEDRATE >100* -- BMP: Recent Labs 11/07/2375711/08/23627 NA 135* 137 K 5.1* 5.1* CL 103 99 CO2 17* 18* BUN 65* 80* CREATININE 9.33* 11.19* CALCIUM 8.1* 7.9* Hemoglobin A1c: Recent Labs 11/07/23756 HGBA1C 11.6* Inflammatory Markers: Recent Labs 11/07/2375611/07/23757 SEDRATE >100* -- CRP -- 75.8* MICROBIOLOGY DATA: Reviewed in detail. Pertinent for: 11/08/23 Tissue from Foot: smear with GPCs, GNRs, no growth to date 11/05/23 Blood Culture: NGTD 2/2 sets ([facility]) 11/05/23 COVID-19 PCR: positive 10/31/23 Tissue from Foot: GBS, K oxytoca (amox/clav-S), MSSA, Rautella IMAGING DATA: personally reviewed 11/08/23 MELLY/PVR: mild arterial insufficiency on the left 11/08/23 MR L Foot: no MR imaging of osteomyelitis, has some superficial ulceration and soft tissue thickening along medial calcaneous ASSESSMENT: L Calcaneal Diabetic Foot Infection: thus far no compelling evidence of osteomyelitis. Unhealthy tissue debrided twice now. He has good blood flow to the left foot. He does not have a complicating bloodstream infection. I think we should give him 3-4 weeks of antibiotics, let's transition him to PO amoxicillin/clavulanate and make sure to give him the first dose tonight. Penicillin allergy listed in chart: childhood reaction. Doubt this is an IgE mediated reaction. Danwas willing to try a dose of amoxicillin/clavulanate while in house. If he tolerates this, then remove the allergy banner from his chart. COVID-19: tested positive on 11/05/23. I think his fever was from Covid, extend his course of remdesivir to 5 days for symptomatic infection. Type II Diabetes Mellitus: glycemic control is essential to limit future infections, likely needs an cable reeler as an outpatient ESRD: due to diabetic nephropathy Venous Stasis: Tobacco Use RECOMMENDATIONS: Discontinue vancomycin, ceftriaxone, metronidazole Start PO amoxicillin/clavulanate 500/125 mg daily given after iHD for a 3-4 week course He needs an urgent podiatry referral for clinic in [facility] (closest to his house) or [facility] Outpatient cable reeler would help as well No follow up needed with ID clinic at this point. Encourage flu vaccine shortly after discharge Recommendations discussed with primary team At this point, ID will sign off, we have a defined course of oral antibiotics, try and arrange follow up with a psychiatric lpn near his home. Thank you for asking us to participate in this patient's care. Please Epic Chat with questions or concerns. Patient was seen and examined with attending, Dr. Cabrera. HUMBERTO LEWIS MD, MD PGY-5, Infectious Disease 11/08/2023 12:23 Attestation statement: I have seen and examined the patient with the fellow. I agree with the findings and plan of care documented in the fellow's note. Haydee Cabrera MD 11/08/2023 16:58 * Chad Davila - 11/08/2023 0159 EST Images from the original note were not included. Orthopaedic Surgery Consultation Consultation requested by: Melissa Rich MD for: Left heel diabetic foot ulcer HPI: Gerson Bruner is a 57 y.o. male with PMH of ESRD (on Wednesday hemodialysis), T2DM (A1c ordered, last 9.8 in 2020), hypertension, hyperlipidemia, PAD, diabetic neuropathy, tobacco dependence whom orthopedics was consulted for a left heel diabetic foot ulcer. Patient presented to [facility] on 10/31 to the emergency room with an ulcer in the medial aspect of his left heel has been worsening over the past few weeks with erythema around the medialankle and has been progressing to the posterior calf and new onset systemic symptoms of fever, chills and overall malaise. He was also diagnosed with an acute COVID infection. Patient was transferredhere for higher level of care. Wound culture of his diabetic foot infection and I&D growing Staph aureus and Klebsiella. He was receiving vancomycin with hemodialysis, ciprofloxacin, and metronidazole. Current MAR demonstrates he is receiving ceftriaxone and vancomycin. He has never had an issue with his feet before no diabetic ulcers prior to this. He has baseline neuropathy in the foot to the level of the ankle. Ambulatory status: independent ambulator Last meal: 5PM on 11/07/23 Social history: Lives with his in [place], Current tobacco use 1 PPD smoker, drinks alcohol once a month. Endorses marijuana use. No IVDU no other recreational drugs. Past Medical History: Diagnosis Date Asthma Mild Diabetes mellitus ([facility]) DM2 Hyperlipidemia Hypertension Stage 3 chronic kidney disease ([facility]) Unsteady gait when walking Past Surgical History: [...] mouth 2 times daily. Cydney Looney MD famotidine (PEPCID) 40 mg tablet Take 1 Tablet by mouth daily. Cydney Looney MD FLOVENT HFA 110 mcg/actuation inhaler Inhale 1 Puff as directed. 03/08/23 Cydney Looney MD furosemide (LASIX) 20 mg tablet Take 1 Tablet by mouth 2 times daily. Cydney Looney MD LEVEMIR FLEXPEN 100 unit/mL (3 mL) injectable pen 01/19/23 Cydney Looney MD MULTIVITAMIN ORAL Take by mouth. Cydney Looney MD olmesartan (BENICAR) 5 mg tablet TAKE ONE TABLET BY MOUTH EVERY DAY STOP HCTZ 08/04/23 Cydney Looney MD pregabalin (LYRICA) 150 mg capsule TAKE ONE CAPSULE BY MOUTH TWICE A DAY, MAXIMUM DAILY DOSE = 2 CAPSULES 08/03/23 Provider, MD Cydney VICTOZA 3-JULY 0.6 mg/0.1 mL (18 mg/3 mL) injectable pen 08/27/23 Provider, MD Cydney Allergies Allergen Reactions Clindamycin Gabapentin Penicillins Pregabalin Other reaction(s): Unsure Sertraline Other reaction(s): [...] History Not on file Review of Systems: Per HPI Physical Exam: BP (!) 171/95 (BP Cuff Location: Right arm, BP Patient Position: Semi fowlers) Pulse 74 Temp 37.1 ??C (98.7 ??F) (Oral) Resp 18 Ht 177.8 cm (70) Wt 86.7 kg (191 lb 2.2 oz) SpO2 98% BMI27.43 kg/m?? General: alert, awake, no apparent distress Respiratory: non labored breathing CV: regular rate as judged by distal pulses Focused Musculoskeletal and Neurovascular Examination Left lower extremity: -2 cm x 2 cm ulcer with obvious necrotic tissue and black eschar, surrounding erythema in the medial foot and ankle with mild edema. There is also a small damp skin irritation between the fourth and fifth toe with no erythema or sign of infection. - Tenderness to palpation about the ulcer and medial ankle in area of erythema and edema. Otherwiseno tenderness to palpation of the forefoot, midfoot, hindfoot, leg, knee, thigh. No pain with straight leg raise or logrolling at the hip. - Diminished sensation about the foot to the level of the ankle which is consistent with baseline. - Painless ankle range of motion; 5/5 strength in tibialis anterior, gastroc soleus complex, 0/5 EHL/FHL which is baseline and chronic - 2+ DP pulse, PT pulse not palpable in setting of edema and cellulitis Right lower extremity: - Thickening of the nail in the great toe. Chronic diabetic ulcer scabbed over and not opened with no erythema or palpable fluctuance or sign of deep space infection. - No tenderness to palpation of the forefoot, midfoot, hindfoot, ankle. - Diminished sensation about the foot to the level of the ankle which is consistent with baseline. - 5/5 strength in tibialis anterior, gastroc soleus complex, 0/5 EHL/FHL which is baseline and chronic - Palpable DP pulse Bilateral upper extremities: - AV fistula in the left upper arm. No open injury or laceration, no ecchymoses, no abrasions, no rash, no swelling - Painless full ROM of the fingers, wrists, elbows, shoulders - Sensation intact to light touch in median, ulnar, radial, nerve distributions - 5/5 strength in flexor pollicis longus, extensor pollicis longus, interossei, general machinist; 5/5 strength in elbow flexion, elbow extension, shoulder abduction - Palpable Labs: WBC/Hgb/Hct/Plts: 8.14/12.1/36.2/247 (11/07 756) Na/K/Cl/CO2: 135/5.1/103/17 (11/07 757) BUN/Cr/glu/ALT/AST/amyl/lip: 65/9.33/44/--/--/--/-- (11/07 757) ESR: > 100 CRP: 75.8 WBC: 8.14 HgbA1c: ordered, last A1c was 9.8 in 2020 Diagnostic Imaging: - AP,oblique, and lateral radiographs of the left foot demonstrate a superficial ulcer around the heel with no evidence of osseous destruction, cortical irregularities or fracture. There is severe calcific arterial disease. - Left foot MRI demonstrates soft tissue defect over the posterior heel but no evidence of osteomyelitis and there is no drainable fluid collection or abscesses. No ankle joint effusion. No gross abnormalities. Procedure: Obtained verbal consent. Risks, benefits, and alternatives discussed. Patient elected to proceed with excisional debridement of left foot wound. Patient was prepped and draped in standard sterile fashion. Wound was debrided to healthy bleeding tissue to subcutaneous tissue. Skin, subcutaneous tissue, muscle, fascia was debrided. 2 cm by 2 cm area was debrided. Wound did not probe to bone. A deep tissue culture sample was collected and sent for bacterial culture and smear. Wound was irrigated with 1 L of sterile normal saline. Wound was dressed in the standard wet-to-dry fashion with 4x4 gauze and kerlix. Post-procedure exam unchanged. Assessment: Gerson Bruner [id number] 1965 Gerson Bruner is a 57 y.o. male with PMH of ESRD (on Wednesday hemodialysis), T2DM (A1c ordered, last 9.8 in 2020), hypertension, hyperlipidemia, PAD, diabetic neuropathy, tobacco dependence whom orthopedics was consulted for a left heel diabetic foot ulcer. Patient has necrotic ulcer on the medial aspect of the right heel. He does have elevated inflammatory markers in the setting of a left diabetic foot ulcer, left lower extremity cellulitis, and COVID infection. At the outside hospital on 11/05 his inflammatory markers were: CRP 152, ESR 12, WBC 11, they show some improvement and are now CRP 75.8, ESR > 100, WBC 8. His ulcer was debrided down to healthy bleeding tissue and did not probe to bone. Additionally, MRI shows no signs of osteomyelitisor drainable abscesses. A deep tissue sample was taken for speciation and antibiotic direction but no gross signs of osteomyelitis at this time. Plan: No further acute orthopaedic intervention NWB LLE, otherwise activity as tolerated Aggressive elevation Twice daily wet-to-dry dressing changes to be performed by nursing-order has been placed Symptoms to monitor for include new onset fever, chills, purulent discharge, swelling, erythema, numbness, tingling, weakness, pain out of proportion of the injury. Recommend ID consult and Abx per ID Follow cultures Please obtain bilateral duplex ultrasounds on a nonurgent basis-order has been placed Patient can follow up in our outpatient orthopedic foot and ankle clinic on discharge - referral has been placed Recommend multimodal pain control Remainder of care per primary team Discussed with: Dr. Davila, will discuss with Dr. Brooks and Dr. Mc Aranda MD PGY-1 Orthopedic Surgery Resident Pager #[phone] 11/08/2023 1:41 Addendum: Patient seen and examined with Dr. Aranda. I have performed my independent chart review, physical exam, and assessment. Agree with above documentation. Edits completed as appropriate. CHAD DAVILA 11/08/2023 1:58 Cosigned by Romeo Bentley IV, MD at 11/09/2023 20:55 EST documented in this encounter Miscellaneous Notes * Plan of Care - Aurelio Lindsay RN - 11/10/2023 1813 EST Problem: Daily Care Plan Goals Goal: Care Plan Documentation Note: Nursing Discharge Note D: Patient noted with discharge orders to: home. A: Prescriptions provided to patient. Reviewed discharge instructions and prescriptions with Patient and Family IV d/c'd. Belongings collected and sent home with patient. R: Patient and Family verbalized understanding of discharge instructions and denied further questions. AURELIO LINDSAY RN 11/10/2023 18:13 * Plan of Care - Kaden Galeas RN - 11/10/2023 1501 EST Problem: Daily Care Plan Goals Goal: Care Plan Documentation Outcome: Met This Shift Flowsheets (Taken 11/10/2023 0823) Goal This Shift: Patient will remain free from injuries and falls this shift. Data: Patient A/O x3. VS stable on room air. 1 assist OOB. Able to make needs known. Rings appropriately. Action: Assumed care at 0700. Medications administered per MAR. Assistance as needed. Hourly check.Safety promoted. Call mitchell within reach. Plan of care ongoing. Response: Patient rested in bed throughout shift. C/O 5/10 L foot pain. Dialysis this afternoon. Nohypoglycemic events this shift. Remained free from injuries and falls. KADEN GALEAS RN 11/10/2023 15:01 * Diabetes Education - Bria Blake RN - 11/10/2023 1200 EST Diabetes Nurse Clinician education Note: current A1C=11.6&% Type of DM: T2DM SMBG: unable to assess Medications: Levemir 100 units every day Liraglutide QD DM Provider: PCP DM Hx: unable to assess Assessment/Education: Attempted to speak with Gerson today. He is very sleepy and in his dialysis run. Plan is for him to return to [place]. Spoke with his nurse to have her secure chat when he is back to [place] and more awake to participate in education. Recommendations: TBD by primary team for medication recommendations. Highly recommend OP endocrinology referral and Urgent PCP follow-up. Bria GOMEZ RN CDCES Diabetes Nurse Clinician Contact via secure chat or page * Plan of Care - Fiona Saunders RN - 11/10/2023 1133 EST Problem: HEMODIALYSIS Goal: Hemodialysis Care Needs Are Met Outcome: Ongoing Goal: Dialysis Access Maintained Outcome: Ongoing * Plan of Care - Mona Cope RN - 11/10/2023 0031 EST Problem: Daily Care Plan Goals Goal: Care Plan Documentation 11/10/2023 0031 by Mona Cope RN Flowsheets (Taken 11/09/20232099) Goal This Shift: Patient will not have a hypoglycemic episode this shift 11/10/2023 0027 by Mona Cope RN Flowsheets (Taken 11/09/2023 2100) Area of Focus: Other Data: Per report patient having recurrent hypoglycemic episodes. Patient c/o of pain 7 on a 0-10 pain scale. HD access LUE. HD MWF. Action: Q 4 hr accu check per order. Small snacks offered at bed time. Med administered per ordered, PRN Dilaudid given with good effect. Educated on importance of extremity elevation to aid with swelling. Patient slept/rested between care. Bed in lock and lowest position. Call light and telephone within reach. Response: Care plan ongoing. Fingers stick remain above 100 MONA COPE RN 11/10/2023 0:32 * Diabetes Education - Bria Blake RN - 11/09/2023 1141 EST Diabetes Nurse Clinician Education Note: current A1C=11.6% Type of DM: T2DM Medications: Levemir 100 units every day Liraglutide QD Assessment/Education: Patient meets inpatient criteria for diabetes education based on elevated A1C. Currently in dialysis, Clinician will not see patient today. Recommendations: Encourage IP endocrinology consult for med recs. Will follow along and see patientat later time. Bria GOMEZ RN CDCES Diabetes Nurse Clinician Contact via secure chat or page Clinician unable to see patient today will see on 11/10/23 * Plan of Care - Tara Sheets RN - 11/09/2023 0543 EST Problem: Daily Care Plan Goals Goal: Care Plan Documentation Flowsheets (Taken 11/09/2023 0541) Area of Focus: Sleep Goal This Shift: Pt will have adequate sleep this shift Note: Data: Pt given HS meds, left foot dressing changed. Action: Pain meds given for mild pain after dressing change. Response: Pt able to sleep for about 3 hours last night. TARA SHEETS RN 11/09/2023 5:42 * Plan of Care - Kaye Edmondson RN - 11/08/2023 1620 EST Problem: HEMODIALYSIS Goal: Hemodialysis Care Needs Are Met Outcome: Met This Shift Goal: Dialysis Access Maintained Outcome: Met This Shift Dialysis Program Nursing Acute-Care Note Kt/V: 1.03 Net fluid removal 1000mls Access: A/V Fistula Access function: Satisfactory Pre Post BP 133/74 144/62 Pulse 35 73 Temp 36.8 36.3 Weight 86.7kg 85.7kg Method of weight: Bed Treatment Comments/Issues/concerns Mental Status Pre: A&Ox4 Mental Status Post: A&Ox4 Pain score: Pre: 0. Post: 7 Post dialysis system: Few strands HD completed as ordered. 1li removed and well tolerated. Pt moves around a lot during dialysis making it difficult to read BP and makes the machine alarm. He said his back hurts, Primary RN gave painmeds. Left AV Fistula worked well, pressure dressing applied, dressing dry and intact. Epogen 1,000unis, Tums 2tabs and Novolog 1 unit given during treatment. VSS post HD. Report given to Sneha Rojo RN * Plan of Care - Tereza Acosta - 11/08/2023 09 EST Patient is COVID positive. Do not cohort. Please call Infection Prevention with questions [phone].) * Plan of Care - Tereza Acosta - 11/08/2023924 EST Patient is positive for COVID-19. Adhere to Airborne precautions, Contact precautions and wear eye protection. Personal Protective Equipment: 1. Gown and Gloves (Contact Precautions) 2. N95 Respirator (fit-tested) or PAPR (Airborne Precautions) 3. Eye protection (minimize risk for exposure of mucous membranes and secretions). Eye protection needs to be cleaned with hospital grade disinfectant after use. Visitors: Adult patient Refer to Visitor policy Visitor is required to wear gown, gloves, and hospital issued procedure mask and eye protection. They must remain in the isolation room and directly exit the building when leaving. Pediatric patient Refer to Visitor policy Visitor is required to wear gown, gloves, and hospital issued procedure mask and eye protection. They must remain in the isolation room and directly exit the building when leaving. Cleaning: Daily cleaning will be performed. Clean high touch surfaces with hospital grade disinfectant. Terminal room cleaning will be performed by Environmental Services at discharge. Transport: If transport or movement is necessary, place procedure mask on patient. HCP involved in transport who are anticipated to potentially provide care during the transport will wear PPE. Patient-Care Equipment Use disposable, non-critical patient-care equipment, or implement patient- dedicated use of such equipment. Call Infection Prevention with questions [phone]. * Plan of Care - Karli Reyes RN - 11/08/2023 0551 EST Problem: Daily Care Plan Goals Goal: Care Plan Documentation Outcome: Met This Shift Flowsheets (Taken 11/08/2023 0005) Area of Focus: Pain/ Comfort Goal This Shift: Pain level will be < 7/10 Note: Data: Pt states the q 4 hrs prn dilaudid is not holding him the whole 4 hours and after 2-2.5 hrs his pain level starts to rise. He has been reporting 9-10/10 pain levels in his left leg and left foot. Action: Offered heat/ice. Tried to get pt to stay off of that foot and use his urinal instead of walking into the BR. Pt given tylenol at 00/updated MD regarding pt's on going pain levels/4 mg Dilaudid given at 0145 after ortho was in with pt/order put in for a 2 mg x 1 of dilaudid and that was given at 0345. Will assess pain level at 0600. Pt more cooperative with elevating foot after ortho saw him at 0030. Response: Pt's pain level more controlled overnight with pain starting out at 8- 9/10, then down to 7/10. Pt states he has been sleeping better than last night because his pain level hasn't been 10/10. Will continue to monitor. KARLI REYES RN 11/08/2023 5:33 * Plan of Care - Kaden Galeas RN - 11/07/2023 2116 EST Problem: Daily Care Plan Goals Goal: Care Plan Documentation Outcome: Met This Shift Flowsheets (Taken 11/07/2023 1552) Goal This Shift: Pain will be managed this shift. Data: Patient A/O x3. VS stable on room air with elevated BP's. 1 assist OOB. Able to make needs known. Rings appropriately. Action: Assumed care at 1500. Medications administered per MAR. PRN dilaudid for R leg/foot pain radiating from knee to toes. Assistance as needed. Hourly check. Safety promoted. Call mitchell within reach. Plan of care ongoing. Response: Patient rested in bed throughout shift. Complaining of occasional, sharp left leg/foot pain. Reports dilaudid is working but wears off after approximately 4 hours. KADEN GALEAS RN 11/07/2023 21:16 * Plan of Care - Kaye Hammer LICSW - 11/07/2023 1558 EST CM Note: Chart reviewed to include H&P. 11/07/23 1557 Discharge Delay Risk Assessment 1. Disease/Medical Condition 5 2. Hospitalization 1 4. Activities of daily living 1 Major Barrier day total 1-6 3 Risk for Delayed Discharge At Risk For Delayed Discharge Minor or major discharge risk delay(s) present? No discharge barriers identified Does the patient meet criteria to be escalated? No CM to follow and to assess for discharge planning needs. NIKKIE SHARMA, [facility] # [id number] Weekend CM * Plan of Care - Epi Nicole RN - 11/07/2023 0341 EST Data Admitted at 2am. Awake alert oriented x3. Vitals Q4. Assist x 1 with a cane. Uses urinal - continent x2. Pt c/o pain on his left heel . On room air. Repositions self. ACHS. Takes pills whole w/water. Action Make needs known. Meds given per DEC schedule. Hourly rounds and safety checks completed. Response Pt resting comfortably. Call mitchell within reach. documented in this encounter Plan of Treatment Upcoming Encounters Date Type Department Care Team (Late st Contact Info) Description 12/06/2024 6:45 EST Treatment [place] [address] [place] [address] Carlota Jin MD 1 [facility], Level [address] [place] [phone] 12/08/2024 6:45 EST Treatment [facility] [address] [place], [place] [id number] Carlota Jin MD 1 [facility], [facility] 2 [place] [phone] 12/11/2024 6:45 EST Treatment [facility] [place] [address] [place], [place] [id number] Carlota Jin MD 1 [facility], [facility] 2 [place] [phone] 12/13/2024 6:45 EST Treatment [facility] [place] [address] [place], [place] [id number] Carlota Jin MD 1 [facility], [facility] 2 [place] [phone] 12/15/2024 6:45 EST Treatment [facility] [place] [address] [place], [place] [id number] Carlota Jin MD 1 [facility], [facility] 2 [place] [phone] 12/18/2024 6:45 EST Treatment [facility] [place] [address] [place], [place] [id number] Carlota Jin MD 1 [facility], [facility] 2 [place] [phone] 12/20/2024 6:45 EST Treatment [facility] [place] [address] [place], [place] [id number] Carlota Jin MD 1 [facility], [facility] 2 [place] [phone] 12/22/2024 6:45 EST Treatment [facility] [place] [address] [place], [place] [id number] Carlota Jin MD 1 [facility], [facility] 2 [place] [phone] 12/25/2024 6:45 EST Treatment [facility] [place] [address] [place], [place] [id number] Carlota Jin MD 1 [facility], [address] [phone] 12/27/2024 6:45 EST Treatment [facility] [place] [address] [place], [place] [phone] Carlota Jin MD 1 [facility], [address] [phone] 12/29/2024 6:45 EST Treatment [facility] [address] [place], [place] [id number] Carlota Jin MD 1 [facility], [facility] 2 [place] [phone] 01/01/2025 6:45 EDT Treatment [facility] [address] [place], [place] [id number] Carlota Jin MD 1 [facility], [facility] 2 [place] [phone] 01/03/2025 6:45 EDT Treatment [facility] [place] [address] [place], [place] [id number] Carlota Jin MD 1 [facility], [facility] 2 [place] [phone] 01/05/2025 6:45 EDT Treatment [facility] [place] [address] [place], [place] [id number] Carlota Jin MD 1 [facility], [facility] 2 [place] [phone] 01/08/2025 6:45 EDT Treatment [facility] [place] [address] [place], [place] [id number] Carlota Jin MD 1 [facility], [facility] 2 [place] [phone] 01/10/2025 6:45 EDT Treatment [facility] [place] [address] [place], [place] [id number] Carlota Jin MD 1 [facility], [facility] 2 [place] [phone] 01/12/2025 6:45 EDT Treatment [facility] [place] [address] [place], [place] [id number] Carlota Jin MD 1 [facility], [facility] 2 [place] [phone] 01/15/2025 6:45 EDT Treatment [facility] [place] [address] [place], [place] [phone] Carlota Jin MD 1 [facility], [facility] 2 [place] [phone] 01/17/2025 6:45 EDT Treatment [facility] [place] [address] [place], [place] [id number] Carlota Jin MD 1 [facility] 2 [place] [phone] 01/19/2025 6:45 EDT Treatment [facility] [place] [address] [place], [place] [id number] Carlota Jin MD 1 [facility], [address] [phone] 01/22/2025 6:45 EDT Treatment [facility] [place] [address] [place], [place] [phone] Carlota Jin MD 1 [facility], [address] [phone] 01/24/2025 6:45 EDT Treatment [facility] [place] [address] [place], [place] [id number] Carlota Jin MD 1 [facility], [address] [phone] 01/26/2025 6:45 EDT Treatment [facility] [place] [address] [place], [place] [id number] Carlota Jin MD 1 [facility], [facility] 2 [place] [phone] 01/29/2025 6:45 EDT Treatment [facility] [place] [address] [place], [place] [id number] Carlota Jin MD 1 [facility], [facility] 2 [place] [phone] 01/31/2025 6:45 EDT Treatment [facility] [place] [address] [place], [place] [id number] Carlota Jin MD 1 [facility], [facility] 2 [place] [phone] 02/02/2025 6:45 EDT Treatment [facility] [place] [address] [place], [place] [address] [phone] Carlota Jin MD 1 [facility], [facility] 2 [place] [phone] 02/05/2025 6:45 EDT Treatment [facility] [place] [address] [place] [address] Carlota Jin MD 1 [facility], [facility] 2 [place] [phone] 02/07/2025 6:45 EDT Treatment [facility] [place] [address] [place], [place] [phone] Carlota Jin MD 1 [facility] 2 [place] [phone] 02/09/2025 6:45 EDT Treatment [facility] [place] [address] [place], [place] [id number] Carlota Jin MD 1 [facility], [facility] 2 [place] [phone] 02/12/2025 6:45 EDT Treatment [facility] [place] [address] [place], [place] [id number] Carlota Jin MD 1 [facility] 2 [place] [phone] 02/14/2025 6:45 EDT Treatment [facility] [place] [address] [place], [place] [id number] Carlota Jin MD 1 [facility] 2 [place] [phone] 02/16/2025 6:45 EDT Treatment [facility] [place] [address] [place], [place] [phone] Carlota Jin MD 1 [facility], [facility] 2 [place] [phone] 02/19/2025 6:45 EDT Treatment [facility] [place] [address] [place], [place] [id number] Carlota Jin MD 1 [facility], [facility] 2 [place] [phone] 02/21/2025 6:45 EDT Treatment [facility] [place] [address] [place], [place] [phone] Carlota Jin MD 1 [facility], [address] [place] [phone] Scheduled Referrals Name Type Priority Associated Diagnoses Order Schedule AMB CONS/FOLLOW UP ORTHOPEDICS - [facility] Outpatient Referral Routine/Next Available Diabetic foot infection (HCC-CMS) Expected: 11/22/2023 (Approximate), Expires: 11/08/2024 AMB CONS/FOLLOW UP HOME HEALTH SERVICES Outpatient Referral Urgent Diabetic foot infection (HCC-CMS) ESRD (end stage renal disease) on dialysis (HCC-CMS) Type 2 diabetes mellitus with hypoglycemia without coma, with long-term current use of insulin (HCC-CMS) Expected: 11/12/2023 (Approximate), Expires: 11/10/2024 AMB CONS/FOLLOW UP PODIATRY Outpatient Referral Urgent Diabetic foot infection (HCC-CMS) Type 2 diabetes mellitus with hypoglycemia without coma, with long-term current use of insulin (HCC-CMS) Expected: 11/12/2023 (Approximate), Expires: 11/10/2024 AMB CONS/FOLLOW UP ENDOCRINOLOGY Outpatient Referral Urgent Diabetic foot infection (HCC-CMS) ESRD (end stage renal disease) on dialysis (HCC-CMS) Type 2 diabetes mellitus with hypoglycemia without coma, with long-term current use of insulin (HCC-CMS) Expected: 11/12/2023 (Approximate), Expires: 11/10/2024 documented as of this encounter Procedures Procedure Name Priority Date/Time Associated Diagnosis Comments ORDERS - SCANNED 11/12/2023 13:2 6 EST POCT GLUCOSE, INTERFACED Routine 11/10/2023 16:58 EST POCT GLUCOSE, INTERFACED Timed 11/10/2023 12:52 EST HEMODIALYSIS Routine 11/10/2023 11:33 EST ESRD (end stage renal disease) (HCC-CMS) POCT GLUCOSE, INTERFACED Timed 11/10/2023 10:10 EST POCT GLUCOSE, INTERFACED Routine 11/10/2023 8:23 EST COMPLETE BLOOD COUNT Routine 11/10/2023 8:07 EST BASIC METABOLIC PANEL (BMP) Routine 11/10/2023 8:07 EST POCT GLUCOSE, INTERFACED Timed 11/10/2023 6:16 EST POCT GLUCOSE, INTERFACED Timed 11/10/2023 0:21 EST POCT GLUCOSE, INTERFACED Routine 11/09/2023 20:34 EST POCT GLUCOSE, INTERFACED Routine 11/09/2023 18:02 EST POCT GLUCOSE, INTERFACED Routine 11/09/2023 16:44 EST POCT GLUCOSE, INTERFACED Routine 11/09/2023 16:08 EST POCT GLUCOSE, INTERFACED Routine 11/09/2023 13:18 EST POCT GLUCOSE, INTERFACED Routine 11/09/2023 9:11 EST POCT GLUCOSE, INTERFACED Routine 11/09/2023 9:01 EST POCT GLUCOSE, INTERFACED Routine 11/09/2023 8:36 EST COMPLETE BLOOD COUNT Routine 11/09/2023 8:26 EST BASIC METABOLIC PANEL (BMP) Routine 11/09/2023 8:26 EST POCT GLUCOSE, INTERFACED Routine 11/09/2023 2:16 EST POCT GLUCOSE, INTERFACED Routine 11/08/2023 21:31 EST POCT GLUCOSE, INTERFACED Routine 11/08/2023 18:56 EST POCT GLUCOSE, INTERFACED Routine 11/08/2023 14:22 EST POCT GLUCOSE, INTERFACED Routine 11/08/2023 11:58 EST HEMODIALYSIS Routine 11/08/2023 10:56 EST ESRD (end stage renal disease) ([facility]) US ANKLE/BRACHIAL INDEX (SINGLE LEVEL) Routine 11/08/2023 10:04 EST POCT GLUCOSE, INTERFACED Routine 11/08/2023 9:47 EST POCT GLUCOSE, INTERFACED Routine 11/08/2023 9:16 EST POCT GLUCOSE, INTERFACED Routine 11/08/2023 8:50 EST POCT GLUCOSE, INTERFACED Routine 11/08/2023 7:55 EST COMPLETE BLOOD COUNT Routine 11/08/2023 6:28 EST PHOSPHORUS Add-On 11/08/2023 6:28 EST VANCOMYCIN TROUGH Timed 11/08/2023 6:2 8 EST BASIC METABOLIC PANEL (BMP) Routine 11/08/2023 6:28 EST BACTERIAL CULTURE/SMEAR STAT 11/08/2023 1:16 EST POCT GLUCOSE, INTERFACED Routine 11/07/2023 20:29 EST POCT GLUCOSE, INTERFACED Routine 11/07/2023 18:06 EST MR FOREFOOT/MIDFOOT WO CONTRAST LEFT Routine 11/07/2023 17:51 EST XR FOOT LEFT 3 OR MORE VIEWS Routine 11/07/2023 16:35 EST POCT GLUCOSE, INTERFACED Routine 11/07/2023 14:57 EST POCT GLUCOSE, INTERFACED Routine 11/07/2023 14:05 EST POCT GLUCOSE, INTERFACED Routine 11/07/2023 9:26 EST C REACTIVE PROTEIN Add-On 11/07/2023 7: 58 EST BASIC METABOLIC PANEL (BMP) Routine 11/07/2023 7:58 EST SED RATE Add-On 11/07/2023 7:57 EST COMPLETE BLOOD COUNT Routine 11/07/2023 7:57 EST HEMOGLOBIN A1C Add-On 11/07/2023 7:57 EST documented in this encounter Results * ORDERS - SCANNED (11/12/2023 13:26 EST) 11/12/2023 13:2 6 EST us Scan 2 [employer] ADMISSION ORDERABLES Final Result * (ABNORMAL) POCT GLUCOSE, INTERFACED (11/10/2023 16:58 EST) Glucose, POC 203(H) 70 - 100 mg/dL 11/10/2023 17:00 EST [facility] HN LAB POC COMMENT (GLUCOSE) Test Performed by Nursing Services 11/10/2023 17:00 EST [facility] Blood CAPILLARY BLOOD / Unknown 11/10/2023 16:58 EST 11/10/2023 17:00 EST us Kiley Tillman MD POINT OF CARE TEST ORDERABLES Final Result [facility] [address] [place] [address] * (ABNORMAL) POCT GLUCOSE, INTERFACED (11/10/2023 12:52 EST) Glucose, POC 195(H) 70 - 100 mg/dL 11/10/2023 12:53 EST [facility] HN LAB POC COMMENT (GLUCOSE) Test Performed by Nursing Services 11/10/2023 12:53 EST [facility] Blood CAPILLARY BLOOD / Unknown 11/10/2023 12:52 EST 11/10/2023 12:53 EST Result [facility] Alvarez Evans MD POINT OF CARE TEST ORDERABLES Fi nal Result Performing Organization Address [facility] Co de Phone Number [facility] [address] [place] [address] * HEMODIALYSIS (11/10/2023 11:33 EST) Narrative [facility] POINT OF CARE - 11/10/2023 11:33 EST Fiona Saunders RN ? 11/10/2023 14:54 Dialysis Program Nursing Acute-Care Note Kt/V: ?? 1.19 ?? Net fluid removal 2L Access: A/V Fistula, left upper Access function: Satisfactory Pre Post BP 153/83 162/79 Pulse 62 60 Temp 97.3f 97.2f Weight 93.8kg 91.8kg Method of weight: Bed Treatment Comments/Issues/concerns Mental Status Pre: A&Ox3 Mental Status Post: A&Ox3 Pain score: Pre: 0. ??Post: 0 Post dialysis system: Moderately clotted Arrived to patients room for 3hr HD treatment. ??Patient denies chest pain/SOB. ??Dialyzes through left upper fistula, thrill/bruit present. ??2-15g needles cannulated successful. ?? Patient is unsure how much he typically pulls at dialysis. ?? Machine does not have crit line. ??Initial UF goal set for 2.5L, will adjust as needed/BP tolerates. ??Patient able to reposition self q2hrs in bed. Weight discrepancy vs weight gain of 8.1kg since last treatment on 11/08/23. Meds given per DEC. Patient tolerated treatment well. ??Hemostasis achieved within 10 minutes. Report given to Kaden DASILVA Mirian Ruiz PA-C DIALYSIS ORDERABLES Final Result Performing Organization Address City/[facility]/ZIP Co de Phone Number [facility] POINT OF CARE * (ABNORMAL) POCT GLUCOSE, INTERFACED (11/10/2023 10:10 EST) Glucose, POC 280(H) 70 - 100 mg/dL 11/10/2023 10:11 EST [facility] HN LAB POC COMMENT (GLUCOSE) Test Performed by Nursing Services 11/10/2023 10:11 EST [facility] Blood CAPILLARY BLOOD / Unknown 11/10/2023 10:10 EST 11/10/2023 10:11 EST Alvarez Evans MD POINT OF CARE TEST ORDERABLES Fi nal Result [facility] [address] [place] [address] * (ABNORMAL) POCT GLUCOSE, INTERFACED (11/10/2023 8:23 EST) Glucose, POC 248(H) 70 - 100 mg/dL 11/10/2023 8:24 EST [facility] HN LAB POC COMMENT (GLUCOSE) Test Performed by Nursing Services 11/10/2023 8:24 EST [facility] Blood CAPILLARY BLOOD / Unknown 11/10/2023 8:23 EST 11/10/2023 8:24 EST us Kiley Tillman MD POINT OF CARE TEST ORDERABLES Final Result Performing Organization Address City/[facility]/ZIP Co de Phone Number [facility] [address] [place] [address] * (ABNORMAL) BASIC METABOLIC PANEL (BMP) (11/10/2023 8:07 EST) Sodium 131(L) 136 - 145 mmol/L 11/10/2023 8:54 [facility] Potassium 5.8(H) 3.5 - 5.0 mmol/L 11/10/2023 8:54 [facility] Chloride 96 96 - 110 mmol/L 11/10/2023 8:54 [facility] CO2 Total 22 22 - 32 mmol/L 11/10/2023 8:54 [facility] Anion Gap 13 5 - 14 mmol/L 11/10/2023 8:54 [facility] Glucose 256(H) 70 - 99 mg/dl 11/10/2023 8:54 [facility] Calcium 7.5(L) 8.5 - 10.5 mg/dL 11/10/2023 8:54 [facility] BUN 69(H) 10 - 26 mg/dL 11/10/2023 8:54 [facility] Creatinine 10.66(H) 0.66 - 1.25 mg/dL 11/10/2023 8:54 [facility] eGFR 5(L) >60 mL/min/1.7 3m2 11/10/2023 8:54 [facility] Blood VENOUS BLOOD / Unknown Venipuncture / Unknown 11/10/2023 8:07 EST 11/10/2023 8:17 EST Kiley Tillman MD CHEMISTRY & BLOOD GAS ORDERABL ES Final Result [facility] [address] [place] [address] * (ABNORMAL) COMPLETE BLOOD COUNT (11/10/2023 8:07 EST) WBC 8.93 4.00 - 10.40 K/cmm 11/10/2023 8:31 [facility] RBC 3.26(L) 4.36 - 5.78 M/cmm 11/10/2023 8:31 [facility] Hemoglobin 10.2(L) 13.8 - 17.3 g/dL 11/10/2023 8:31 [facility] HCT 30.0(L) 39.5 - 50.2 % 11/10/2023 8:31 [facility] MCV 92 81 - 95 fL 11/10/2023 8:31 [facility] MCH 31.3 27.6 - 33.0 pg 11/10/2023 8:31 [facility] MCHC 34.0 32.8 - 36.4 g/dL 11/10/2023 8:31 [facility] RDW-CV 12.3 <14.2 % 11/10/2023 8:31 [facility] RDW-SD 41.8 <46.0 fl 11/10/2023 8:31 [facility] PLT 207 141 - 377 K/cmm 11/10/2023 8:31 [facility] MPV 12.2 9.5 - 12.7 fL 11/10/2023 8:31 [facility] Blood VENOUS BLOOD / Unknown Venipuncture / Unknown 11/10/2023 8:07 EST 11/10/2023 8:15 EST Kiley Tillman MD HEMATOLOGY & PF4 ORDERABLES Fi nal Result Performing Organization Address [facility] Co de Phone Number [facility] [address] [place] [address] * (ABNORMAL) POCT GLUCOSE, INTERFACED (11/10/2023 6:16 EST) Glucose, POC 234(H) 70 - 100 mg/dL 11/10/2023 6:18 EST [facility] HN LAB POC COMMENT (GLUCOSE) Test Performed by Nursing Services 11/10/2023 6:18 [facility] Blood CAPILLARY BLOOD / Unknown 11/10/2023 6:16 EST 11/10/2023 6:18 EST Alvarez Evans MD POINT OF CARE TEST ORDERABLES Fi nal Result Performing Organization Address [facility]/ZIP Co de Phone Number [facility] [address] [place] [address] * (ABNORMAL) POCT GLUCOSE, INTERFACED (11/10/2023 0:21 EST) Glucose, POC 226(H) 70 - 100 mg/dL 11/10/2023 0:22 [facility] HN LAB POC COMMENT (GLUCOSE) Test Performed by Nursing Services 11/10/2023 0:22 EST [facility] Blood CAPILLARY BLOOD / Unknown 11/10/2023 0:21 EST 11/10/2023 0:22 EST us Alvarez Evans MD POINT OF CARE TEST ORDERABLES Fi nal Result Performing Organization Address [facility]/ZIP Co de Phone Number [facility] [address] [place] [address] * (ABNORMAL) POCT GLUCOSE, INTERFACED (11/09/2023 20:34 EST) Glucose, POC 197(H) 70 - 100 mg/dL 11/09/2023 20:35 EST [facility] HN LAB POC COMMENT (GLUCOSE) Test Performed by Nursing Services 11/09/2023 20:35 EST [facility] Blood CAPILLARY BLOOD / Unknown 11/09/2023 20:34 EST 11/09/2023 20:35 EST us Jewel Ordaz MD POINT OF CARE TEST ORDER FRANSISCO Final Result Performing Organization Address [facility]/ZIP Co de Phone Number [facility] [address] [place] [address] * (ABNORMAL) POCT GLUCOSE, INTERFACED (11/09/2023 18:02 EST) Glucose, POC 122(H) 70 - 100 mg/dL 11/09/2023 18:03 EST [facility] HN LAB POC COMMENT (GLUCOSE) Test Performed by Nursing Services 11/09/2023 18:03 EST [facility] Blood CAPILLARY BLOOD / Unknown 11/09/2023 18:02 EST 11/09/2023 18:03 EST us Kiley Tillman MD POINT OF CARE TEST ORDERABLES Final Result Performing Organization Address [facility]/ZIP Co de Phone Number [facility] [address] [place] [address] * POCT GLUCOSE, INTERFACED (11/09/2023 16:44 EST) Glucose, POC 71 70 - 100 mg/dL 11/09/2023 16:45 EST [facility] HN LAB POC COMMENT (GLUCOSE) Test Performed by Nursing Services 11/09/2023 16:45 EST [facility] Blood CAPILLARY BLOOD / Unknown 11/09/2023 16:44 EST 11/09/2023 16:45 EST us Jewel Ordaz MD POINT OF CARE TEST ORDER FRANSISCO Final Result [facility] [address] [place] [address] * (ABNORMAL) POCT GLUCOSE, INTERFACED (11/09/2023 16:08 EST) Glucose, POC 69(L) 70 - 100 mg/dL 11/09/2023 16:10 EST [facility] HN LAB POC COMMENT (GLUCOSE) Test Performed by Nursing Services 11/09/2023 16:10 EST [facility] Blood CAPILLARY BLOOD / Unknown 11/09/2023 16:08 EST 11/09/2023 16:10 EST us Kiley Tillman MD POINT OF CARE TEST ORDERABLES Final Result Performing Organization Address [facility]/ZIP Co de Phone Number [facility] [address] [place] [address] * POCT GLUCOSE, INTERFACED (11/09/2023 13:18 EST) Glucose, POC 74 70 - 100 mg/dL 11/09/2023 13:20 EST [facility] HN LAB POC COMMENT (GLUCOSE) Test Performed by Nursing Services 11/09/2023 13:20 EST [facility] Blood CAPILLARY BLOOD / Unknown 11/09/2023 13:18 EST 11/09/2023 13:20 EST us Kiley Tillman MD POINT OF CARE TEST ORDERABLES Final Result [facility] [address] [place] [address] * (ABNORMAL) POCT GLUCOSE, INTERFACED (11/09/2023 9:11 EST) Glucose, POC 112(H) 70 - 100 mg/dL 11/09/2023 9:12 EST [facility] HN LAB POC COMMENT (GLUCOSE) Test Performed by Nursing Services 11/09/2023 9:12 EST [facility] Blood CAPILLARY BLOOD / Unknown 11/09/2023 9:11 EST 11/09/2023 9:12 EST us Jewel Ordaz MD POINT OF CARE TEST ORDER FRANSISCO Final Result Performing Organization Address [facility]/ZIP Co de Phone Number [facility] [address] [place] [address] * (ABNORMAL) POCT GLUCOSE, INTERFACED (11/09/2023 9:01 EST) Glucose, POC 40(LL) 70 - 100 mg/dL 11/09/2023 9:02 EST [facility] HN LAB POC COMMENT (GLUCOSE) Test Performed by Nursing Services 11/09/2023 9:02 EST [facility] Blood CAPILLARY BLOOD / Unknown 11/09/2023 9:01 EST 11/09/2023 9:02 EST us Jewel Ordaz MD POINT OF CARE TEST ORDER FRANSISCO Final Result [facility] [address] [place] [address] * (ABNORMAL) POCT GLUCOSE, INTERFACED (11/09/2023 8:36 EST) Glucose, POC 30(LL) 70 - 100 mg/dL 11/09/2023 8:38 EST [facility] HN LAB POC COMMENT (GLUCOSE) Test Performed by Nursing Services 11/09/2023 8:38 EST [facility] Blood CAPILLARY BLOOD / Unknown 11/09/2023 8:36 EST 11/09/2023 8:38 EST us Kiley Tillman MD POINT OF CARE TEST ORDERABLES Final Result [facility] [address] [place] [address] * (ABNORMAL) BASIC METABOLIC PANEL (BMP) (11/09/2023 8:26 EST) Sodium 138 136 - 145 mmol/L 11/09/2023 8:52 [facility] Potassium 5.2(H) 3.5 - 5.0 mmol/L 11/09/2023 8:52 [facility] Chloride 97 96 - 110 mmol/L 11/09/2023 8:52 [facility] CO2 Total 28 22 - 32 mmol/L 11/09/2023 8:52 [facility] Anion Gap 13 5 - 14 mmol/L 11/09/2023 8:52 [facility] Glucose 33(LL) 70 - 99 mg/dl 11/09/2023 8:52 [facility] Calcium 8.0(L) 8.5 - 10.5 mg/dL 11/09/2023 8:52 [facility] BUN 55(H) 10 - 26 mg/dL 11/09/2023 8:52 [facility] Creatinine 9.18(H) 0.66 - 1.25 mg/dL 11/09/2023 8:52 [facility] eGFR 6(L) >60 mL/min/1.73 m2 11/09/2023 8:52 [facility] Blood VENOUS BLOOD / Unknown Venipuncture / Unknown 11/09/2023 8:26 EST 11/09/2023 8:30 EST us Kiley Tillman MD CHEMISTRY & BLOOD GAS ORDERABL ES Final Result [facility] [address] [place] [address] * (ABNORMAL) COMPLETE BLOOD COUNT (11/09/2023 8:26 EST) WBC 7.96 4.00 - 10.40 K/cmm 11/09/2023 8:49 [facility] RBC 3.83(L) 4.36 - 5.78 M/cmm 11/09/2023 8:49 [facility] Hemoglobin 11.7(L) 13.8 - 17.3 g/dL 11/09/2023 8:49 [facility] HCT 36.0(L) 39.5 - 50.2 % 11/09/2023 8:49 [facility] MCV 94 81 - 95 fL 11/09/2023 8:49 [facility] MCH 30.5 27.6 - 33.0 pg 11/09/2023 8:49 [facility] MCHC 32.5(L) 32.8 - 36.4 g/dL 11/09/2023 8:49 [facility] RDW-CV 12.4 <14.2 % 11/09/2023 8:49 [facility] RDW-SD 43.1 <46.0 fl 11/09/2023 8:49 [facility] PLT 197 141 - 377 K/cmm 11/09/2023 8:49 [facility] MPV 12.0 9.5 - 12.7 fL 11/09/2023 8:49 [facility] Blood VENOUS BLOOD / Unknown Venipuncture / Unknown 11/09/2023 8:26 EST 11/09/2023 8:30 EST us Kiley Tillman MD HEMATOLOGY & PF4 ORDERABLES Fi nal Result [facility] [address] [place] [address] * (ABNORMAL) POCT GLUCOSE, INTERFACED (11/09/2023 2:16 EST) Glucose, POC 108(H) 70 - 100 mg/dL 11/09/2023 2:19 [facility] HN LAB POC COMMENT (GLUCOSE) Test Performed by Nursing Services 11/09/2023 2:19 EST [facility] Blood CAPILLARY BLOOD / Unknown 11/09/2023 2:16 EST 11/09/2023 2:19 EST Jewel Ordaz MD POINT OF CARE TEST ORDER FRANSISCO Final Result Performing Organization Address [facility] Co de Phone Number [facility] [address] [place] [address] * (ABNORMAL) POCT GLUCOSE, INTERFACED (11/08/2023 21:31 EST) Glucose, POC 190(H) 70 - 100 mg/dL 11/08/2023 21:36 EST [facility] HN LAB POC COMMENT (GLUCOSE) Test Performed by Nursing Services 11/08/2023 21:36 EST [facility] Blood CAPILLARY BLOOD / Unknown 11/08/2023 21:31 EST 11/08/2023 21:36 EST us Jewel Ordaz MD POINT OF CARE TEST ORDER FRANSISCO Final Result Performing Organization Address [facility] Co de Phone Number [facility] [address] [place] [address] * (ABNORMAL) POCT GLUCOSE, INTERFACED (11/08/2023 18:56 EST) Glucose, POC 167(H) 70 - 100 mg/dL 11/08/2023 19:00 EST [facility] HN LAB POC COMMENT (GLUCOSE) Test Performed by Nursing Services 11/08/2023 19:00 EST [facility] Blood CAPILLARY BLOOD / Unknown 11/08/2023 18:56 EST 11/08/2023 19:00 EST Kiley Tillman MD POINT OF CARE TEST ORDERABLES Final Result Performing Organization Address City/[facility]/ZIP Co de Phone Number [facility] [address] [place] [address] * (ABNORMAL) POCT GLUCOSE, INTERFACED (11/08/2023 14:22 EST) Glucose, POC 189(H) 70 - 100 mg/dL 11/08/2023 14:23 EST [facility] HN LAB POC COMMENT (GLUCOSE) Test Performed by Nursing Services 11/08/2023 14:23 EST [facility] Blood CAPILLARY BLOOD / Unknown 11/08/2023 14:22 EST 11/08/2023 14:23 EST us Kiley Tillman MD POINT OF CARE TEST ORDERABLES Final Result Performing Organization Address [facility]/ZIP Co de Phone Number [facility] [address] [place] [address] * (ABNORMAL) POCT GLUCOSE, INTERFACED (11/08/2023 11:58 EST) Glucose, POC 172(H) 70 - 100 mg/dL 11/08/2023 12:00 EST [facility] HN LAB POC COMMENT (GLUCOSE) Test Performed by Nursing Services 11/08/2023 12:00 EST [facility] Blood CAPILLARY BLOOD / Unknown 11/08/2023 11:58 EST 11/08/2023 12:00 EST us Kiley Tillman MD POINT OF CARE TEST ORDERABLES Final Result Performing Organization Address City/[facility]/ZIP Co de Phone Number [facility] [address] [place] [address] * US ANKLE/BRACHIAL INDEX (SINGLE LEVEL) (11/08/2023 10:04 EST) Right arm BP 161 mmHg [facility] P OINT OF CARE RIGHT MELLY DIGIT 128 mmHg [facility] N POINT OF CARE Right TBI 0.80 [facility] POIN T OF CARE Right posterior tibial 255 mmHg [facility] POINT OF CARE RTDOPED 255 mmHg [facility] POIN T OF CARE Right MELLY 1.58 [facility] POIN T OF CARE LEFT MELLY DIGIT 92 mmHg [facility] POINT OF CARE Left TBI 0.57 [facility] POIN T OF CARE Left posterior tibial 255 mmHg [facility] POINT OF CARE LTDOPED 255 mmHg [facility] POIN T OF CARE Left MELLY 1.58 [facility] POIN T OF CARE Anatomical Region Laterality Modality Vascular Ultrasound Narrative 11/18/2023 11:53 EST ?Falsely elevated segmental pressures bilaterally due to arterial calcification. ?Left hallux brachial index demonstrated mild arterial insufficiency. ?Right hallux brachial index demonstarted no evidence of arterial insufficiency. Right Lower Physiologic Pulse Volume Recording Right ankle: normal Right digit: normal Doppler Waveform Right posterior tibial: biphasic Right dorsalis pedis: biphasic Left Lower Physiologic Pulse Volume Recording Left ankle: mildly diminished Left digit: mildly diminished Doppler Waveform Left posterior tibial: monophasic Left dorsalis pedis: biphasic Arterial HPI and Indications Left ulceration. Arterial Past Medical History ESRD, Hyperlipidemia, Hypertension and Diabetes Mellitus. Left arm AVF Chad Davila MD [facility] VASCULAR ORDERABLES Final Result * (ABNORMAL) POCT GLUCOSE, INTERFACED (11/08/2023 9:47 EST) Glucose, POC 103(H) 70 - 100 mg/dL 11/08/2023 9:47 EST [facility] HN LAB POC COMMENT (GLUCOSE) Test Performed by Nursing Services 11/08/2023 9:47 EST [facility] Blood CAPILLARY BLOOD / Unknown 11/08/2023 9:47 EST 11/08/2023 9:47 EST Jewel Ordaz MD POINT OF CARE TEST ORDER FRANSISCO Final Result Performing Organization Address City/[facility]/ZIP Co de Phone Number [facility] [address] [place] [address] * POCT GLUCOSE, INTERFACED (11/08/2023 9:16 EST) Glucose, POC 75 70 - 100 mg/dL 11/08/2023 9:16 EST [facility] HN LAB POC COMMENT (GLUCOSE) Test Performed by Nursing Services 11/08/2023 9:16 EST [facility] Blood CAPILLARY BLOOD / Unknown 11/08/2023 9:16 EST 11/08/2023 9:16 EST us Jewel Ordaz MD POINT OF CARE TEST ORDER FRANSISCO Final Result Performing Organization Address [facility] Co de Phone Number [facility] [address] [place] [id number] * (ABNORMAL) POCT GLUCOSE, INTERFACED (11/08/2023 8:50 EST) Glucose, POC 69(L) 70 - 100 mg/dL 11/08/2023 8:51 EST [facility] HN LAB POC COMMENT (GLUCOSE) Test Performed by Nursing Services 11/08/2023 8:51 EST [facility] Blood CAPILLARY BLOOD / Unknown 11/08/2023 8:50 EST 11/08/2023 8:51 EST us Jewel Ordaz MD POINT OF CARE TEST ORDER FRANSISCO Final Result Performing Organization Address [facility]/ZIP Co de Phone Number [facility] [address] [place] [id number] * POCT GLUCOSE, INTERFACED (11/08/2023 7:55 EST) Glucose, POC 83 70 - 100 mg/dL 11/08/2023 7:56 EST [facility] HN LAB POC COMMENT (GLUCOSE) Test Performed by Nursing Services 11/08/2023 7:56 [facility] Blood CAPILLARY BLOOD / Unknown 11/08/2023 7:55 EST 11/08/2023 7:56 EST Kiley Tillman MD POINT OF CARE TEST ORDERABLES Final Result Performing Organization Address [facility]/ZIP Co de Phone Number [facility] [address] [place] [address] * (ABNORMAL) PHOSPHORUS (11/08/2023 6:28 EST) Phosphorus 9.8(H) 2.5 - 4.5 mg/dL 11/08/2023 14:10 [facility] Blood VENOUS BLOOD / Unknown Venipuncture / Unknown 11/08/2023 6:28 EST 11/08/2023 6:51 EST Mirian Ruiz PA-C CHEMISTRY & BLOOD GA S ORDERABLES Final Result Performing Organization Address [facility] Co de Phone Number [facility] [address] [place] [address] * (ABNORMAL) BASIC METABOLIC PANEL (BMP) (11/08/2023 6:28 EST) Sodium 137 136 - 145 mmol/L 11/08/2023 7:23 [facility] Potassium 5.1(H) 3.5 - 5.0 mmol/L 11/08/2023 7:23 [facility] Chloride 99 96 - 110 mmol/L 11/08/2023 7:23 [facility] CO2 Total 18(L) 22 - 32 mmol/L 11/08/2023 7:23 [facility] Anion Gap 20(H) 5 - 14 mmol/L 11/08/2023 7:23 [facility] Glucose 23(LL) 70 - 99 mg/dl 11/08/2023 7:23 [facility] Calcium 7.9(L) 8.5 - 10.5 mg/dL 11/08/2023 7:23 [facility] BUN 80(H) 10 - 26 mg/dL 11/08/2023 7:23 [facility] Creatinine 11.19(H) 0.66 - 1.25 mg/dL 11/08/2023 7:23 [facility] eGFR 5(L) >60 mL/min/1.7 3m2 11/08/2023 7:23 [facility] Blood VENOUS BLOOD / Unknown Venipuncture / Unknown 11/08/2023 6:28 EST 11/08/2023 6:51 EST us Kiley Tillman MD CHEMISTRY & BLOOD GAS ORDERABL ES Final Result [facility] [address] [place] [address] * (ABNORMAL) COMPLETE BLOOD COUNT (11/08/2023 6:28 EST) WBC 9.98 4.00 - 10.40 K/cmm 11/08/2023 6:50 [facility] RBC 3.58(L) 4.36 - 5.78 M/cmm 11/08/2023 6:50 [facility] Hemoglobin 11.1(L) 13.8 - 17.3 g/dL 11/08/2023 6:50 [facility] HCT 33.1(L) 39.5 - 50.2 % 11/08/2023 6:50 [facility] MCV 93 81 - 95 fL 11/08/2023 6:50 [facility] MCH 31.0 27.6 - 33.0 pg 11/08/2023 6:50 [facility] MCHC 33.5 32.8 - 36.4 g/dL 11/08/2023 6:50 [facility] RDW-CV 12.1 <14.2 % 11/08/2023 6:50 [facility] RDW-SD 41.1 <46.0 fl 11/08/2023 6:50 [facility] PLT 270 141 - 377 K/cmm 11/08/2023 6:50 EST [facility] MPV 11.8 9.5 - 12.7 fL 11/08/2023 6:50 [facility] Blood VENOUS BLOOD / Unknown Venipuncture / Unknown 11/08/2023 6:28 EST 11/08/2023 6:41 EST Kiley Tillman MD HEMATOLOGY & PF4 ORDERABLES Fi nal Result Performing Organization Address [facility] Co de Phone Number [facility] [address] [place] [address] * (ABNORMAL) VANCOMYCIN TROUGH (11/08/2023 6:28 EST) [facility] Vancomycin Trough 9.8(L) 10.0 - 20.0 ??g/mL 11/08/2023 7:24 [facility] Draw Type Peripheral Draw 11/08/2023 7:24 [facility] Blood VENOUS BLOOD / Unknown Venipuncture / Unknown 11/08/2023 6:28 EST 11/08/2023 6:51 EST Melissa Rich MD CHEMISTRY & BLOOD GAS ORDER FRANSISCO Final Result Performing Organization Address [facility] de Phone Number [facility] [address] [place] [address] * (ABNORMAL) BACTERIAL CULTURE/SMEAR (11/08/2023 1:16 EST) [facility] Organism ID Moderate Klebsiella oxytoca(A) V[facility] SUSCEPTIBILITY 4 8:53 [facility] Organism ID Few Staphylococcus aureus(A) VITEK SUSCEPTIBILITY 4 8:53 [facility] Comment:Susceptible to nafci llin, cephalosporins and other beta lactam antibiotics (mecA gene product absent). Smear No Neutrophils Seen(A) 4 8:53 [facility] Smear Few Gram Positive Cocci(A) 4 8:53 [facility] Smear Few Gram Negative Bacilli(A) 8:53 EST [facility] Tissue FOOT STRUCTURE / Unknown Collection, Other / Unknown 11/08/2023 1:16 EST 11/08/2023 1:26 EST Narrative Organism Antibiotic Method Susceptibility Klebsiella oxytoca Amikacin VITEK SUSCEPTIBILITY <=2 ug/mL: Susceptible Klebsiella oxytoca Ampicillin VITEK SUSCEPTIBILITY Resistant Klebsiella oxytoca Ampicillin Sulbactam VITEK SUSCEPTI BILITY 4 ug/mL: Susceptible Klebsiella oxytoca Cefepime VITEK SUSCEPTIBILITY <=1 ug/mL: Susceptible Klebsiella oxytoca Ceftazidime VITEK SUSCEPTIBILITY <=1 ug/mL: Susceptible Klebsiella oxytoca Ceftriaxone VITEK SUSCEPTIBILITY <=1 ug/mL: Susceptible Klebsiella oxytoca Ciprofloxacin VITEK SUSCEPTIBILITY <=0.25 ug/mL: Susceptible Klebsiella oxytoca Ertapenem VITEK SUSCEPTIBILITY <=0.5 ug/mL: Susceptible Klebsiella oxytoca Gentamicin VITEK SUSCEPTIBILITY <=1 ug/mL: Susceptible Klebsiella oxytoca Meropenem VITEK SUSCEPTIBILITY <=0.25 ug/mL: Susceptible Klebsiella oxytoca Tobramycin VITEK SUSCEPTIBILITY <=1 ug/mL: Susceptible Klebsiella oxytoca Trimethoprim-Sulfame t hoxazole VITEK SUSCEPTIBILITY <=20 ug/mL: Susceptible Staphylococcus aureus Cefazolin VITEK SUSCEPTIBILIT Y Deduced Susceptible Staphylococcus aureus Clindamycin VITEK SUSCEPTIBILIT Y 0.25 ug/mL: Susceptible Staphylococcus aureus Doxycycline VITEK SUSCEPTIBILIT Y <=0.5 ug/mL: Susceptible Staphylococcus aureus Erythromycin VITEK SUSCEPTIBILIT Y >=8 ug/mL: Resistant Staphylococcus aureus Oxacillin VITEK SUSCEPTIBILIT Y 0.5 ug/mL: Susceptible Staphylococcus aureus Trimethoprim-Sulfa met hoxazole VITEK SUSCEPTIBILITY <=10 ug/mL: Susceptible Staphylococcus aureus Vancomycin VITEK SUSCEPTIBILIT Y 1 ug/mL: Susceptible us Chad Davila MD MICROBIOLOGY - GENERAL ORDERABLE S Final Result [facility] [address] [place] [address] * (ABNORMAL) POCT GLUCOSE, INTERFACED (11/07/2023 20:29 EST) Glucose, POC 149(H) 70 - 100 mg/dL 11/07/2023 20:30 EST [facility] LAB POC COMMENT (GLUCOSE) Test Performed by Nursing Services 11/07/2023 20:30 EST [facility] Blood CAPILLARY BLOOD / Unknown 11/07/2023 20:29 EST 11/07/2023 20:30 EST Melissa Rich MD POINT OF CARE TEST ORDERABL ES Final Result Performing Organization Address City/[facility]/ZIP Co de Phone Number [facility] [address] [place] [address] * (ABNORMAL) POCT GLUCOSE, INTERFACED (11/07/2023 18:06 EST) Glucose, POC 157(H) 70 - 100 mg/dL 11/07/2023 18:07 EST [facility] HN LAB POC COMMENT (GLUCOSE) Test Performed by Nursing Services 11/07/2023 18:07 EST [facility] Blood CAPILLARY BLOOD / Unknown 11/07/2023 18:06 EST 11/07/2023 18:07 EST us Kiley Tillman MD POINT OF CARE TEST ORDERABLES Final Result Performing Organization Address City/[facility] Co de Phone Number [facility] [address] [place] [address] * MR FOOT WO CONTRAST LEFT (11/07/2023 17:51 EST) Anatomical Region Laterality Modality Lower Extremities Left Magnetic Reson ance 11/08/2023 8:23 EST Impressions 11/08/2023 8:23 EST 1. ??Superficial ulceration over the medial aspect of the calcaneus, moderate diffuse skin thickening throughout the ankle and imaged foot, and subcutaneous edema, compatible with cellulitis. 2. ??No organized or drainable collection or abscess formation seen. 3. ??No MR imaging evidence of osteomyelitis. I have personally reviewed the images and the above interpretation and agree with the findings. [id number] Narrative 11/08/2023 8:23 EST Study: MR FOOT WO CONTRAST LEFT ??11/07/2023 5:19 PM Signs and Symptoms/Comments: Diabetic foot infection, cellulitis; Foot swelling, diabetic, osteomyelitis suspected, xray done; diabetic foot infection, cellulitis; Comparison: Left foot radiographs 11/07/2023 Technique: Routine multiplanar and multisequence MR images of the left foot and ankle were obtained centered on the hindfoot/midfoot. No intravenous contrast was administered. Findings: Bones: Normal marrow signal. No concerning osseous lesion. Mild degenerative change throughout the imaged hindfoot and midfoot. No ankle joint effusion. Muscles/Tendons: Diffuse muscle atrophy and fatty infiltration. Edema along the distal muscle fibers of the flexor hallucis longus. The imaged tendons are intact. Trace fluid in the flexor hallucis longus tendon sheath. Other Soft tissues: There is superficial ulceration over the medial aspect of the calcaneus. Moderate skin thickening and subjacent subcutaneous edema in the superficial soft tissues essentially involving the entirety of the imaged hindfoot with more confluent edema along the medial and posterior medial ankle. No organized or drainable collection. Procedure Note Dominic Obregon MD - 11/08/2023 Study: MR FOOT WO CONTRAST LEFT 11/07/2023 5:19 PM Signs and Symptoms/Comments: Diabetic foot infection, cellulitis; Footswelling, diabetic, osteomyelitis suspected, xray done; diabetic footinfection, cellulitis; Comparison: Left foot radiographs 11/07/2023 Technique: Routine multiplanar and multisequence MR images of the leftfoot and ankle were obtained centered on the hindfoot/midfoot. Nointravenous contrast was administered. Findings: Bones: Normal marrow signal. No concerning osseous lesion. Milddegenerative change throughout the imaged hindfoot and midfoot. No anklejoint effusion. Muscles/Tendons: Diffuse muscle atrophy and fatty infiltration. Edemaalong the distal muscle fibers of the flexor hallucis longus. The imagedtendons are intact. Trace fluid in the flexor hallucis longus tendonsheath. Other Soft tissues: There is superficial ulceration over the medial aspectof the calcaneus. Moderate skin thickening and subjacent subcutaneousedema in the superficial soft tissues essentially involving the entiretyof the imaged hindfoot with more confluent edema along the medial andposterior medial ankle. No organized or drainable collection. IMPRESSION 1. Superficial ulceration over the medial aspect of the calcaneus,moderate diffuse skin thickening throughout the ankle and imaged foot, andsubcutaneous edema, compatible with cellulitis. 2. No organized or drainable collection or abscess formation seen. 3. No MR imaging evidence of osteomyelitis. I have personally reviewed the images and the above interpretation andagree with the findings. [id number] Kiley Tillman MD IMG MRI ORDERABLES Final Resul t * XR FOOT LEFT 3 OR MORE VIEWS (11/07/2023 16:35 EST) Anatomical Region Laterality Modality Lower Extremities Left Computed Radio graphy 11/07/2023 16:3 9 EST Impressions 11/07/2023 16:39 EST No erosive changes evident. [id number] Narrative 11/07/2023 16:39 EST XR FOOT LEFT 3 OR MORE VIEWS11/07/2023 4:00 PM SIGNS & SYMPTOMS / COMMENTS: Diabetic foot ulcer, need to assess for erosions and for following clinically; COMPARISON: None TECHNIQUE: 3 views of the left foot FINDINGS: No fracture is evident. Atherosclerotic vascular calcifications are present diffusely. A small amount of gas is seen in the subcutaneous tissues overlying the inferior calcaneal tuberosity. There is no underlying erosive change to indicate osteomyelitis. Mild degenerative changes are present in the midfoot. A possible soft tissue defect is seen underlying the metatarsal heads on the lateral view. Procedure Note Rodrigue Norwood MD - 11/07/2023 XR FOOT LEFT 3 OR MORE VIEWS11/07/2023 4:00 PM SIGNS & SYMPTOMS / COMMENTS: Diabetic foot ulcer, need to assess forerosions and for following clinically; COMPARISON: None TECHNIQUE: 3 views of the left foot FINDINGS: No fracture is evident. Atherosclerotic vascular calcifications arepresent diffusely. A small amount of gas is seen in the subcutaneoustissues overlying the inferior calcaneal tuberosity. There is nounderlying erosive change to indicate osteomyelitis. Mild degenerativechanges are present in the midfoot. A possible soft tissue defect is seenunderlying the metatarsal heads on the lateral view. IMPRESSION No erosive changes evident. [id number] Rajesh [facility] ORDERABLE S Final Result * POCT GLUCOSE, INTERFACED (11/07/2023 14:57 EST) Glucose, POC 100 70 - 100 mg/dL 11/07/2023 14:59 EST [facility] HN LAB POC COMMENT (GLUCOSE) Test Performed by Nursing Services 11/07/2023 14:59 EST [facility] Blood CAPILLARY BLOOD / Unknown 11/07/2023 14:57 EST 11/07/2023 14:59 EST us Kiley Tillman MD POINT OF CARE TEST ORDERABLES Final Result [facility] [address] [place] [address] * (ABNORMAL) POCT GLUCOSE, INTERFACED (11/07/2023 14:05 EST) Glucose, POC 47(LL) 70 - 100 mg/dL 11/07/2023 14:06 EST [facility] HN LAB POC COMMENT (GLUCOSE) Test Performed by Nursing Services 11/07/2023 14:06 EST [facility] Blood CAPILLARY BLOOD / Unknown 11/07/2023 14:05 EST 11/07/2023 14:06 EST us Kiley Tillman MD POINT OF CARE TEST ORDERABLES Final Result Performing Organization Address City/[facility]/ZIP Co de Phone Number [facility] [address] [place] [address] * POCT GLUCOSE, INTERFACED (11/07/2023 9:26 EST) Glucose, POC 76 70 - 100 mg/dL 11/07/2023 9:27 EST [facility] HN LAB POC COMMENT (GLUCOSE) Test Performed by Nursing Services 11/07/2023 9:27 EST [facility] Blood CAPILLARY BLOOD / Unknown 11/07/2023 9:26 EST 11/07/2023 9:27 EST us Kiley Tillman MD POINT OF CARE TEST ORDERABLES Final Result [facility] [address] [place] [address] * (ABNORMAL) C REACTIVE PROTEIN (11/07/2023 7:58 EST) Pathologist [facility] C-Reactive Protein 75.8(H) <10.0 mg/L 11/07/2023 13:52 [facility] Blood VENOUS BLOOD / Unknown Venipuncture / Unknown 11/07/2023 7:58 EST 11/07/2023 8:16 EST Rajesh Vazquez MD CHEMISTRY & BLOOD GAS ORDERABLES Final Result Performing Organization Address [facility] Co de Phone Number [facility] [address] [place] [address] * (ABNORMAL) BASIC METABOLIC PANEL (BMP) (11/07/2023 7:58 EST) [facility] Sodium 135(L) 136 - 145 mmol/L 11/07/2023 8:50 [facility] Potassium 5.1(H) 3.5 - 5.0 mmol/L 11/07/2023 8:50 [facility] Chloride 103 96 - 110 mmol/L 11/07/2023 8:50 [facility] CO2 Total 17(L) 22 - 32 mmol/L 11/07/2023 8:50 [facility] Anion Gap 15(H) 5 - 14 mmol/L 11/07/2023 8:50 [facility] Glucose 44(LL) 70 - 99 mg/dl 11/07/2023 8:50 [facility] Calcium 8.1(L) 8.5 - 10.5 mg/dL 11/07/2023 8:50 [facility] BUN 65(H) 10 - 26 mg/dL 11/07/2023 8:50 [facility] Creatinine 9.33(H) 0.66 - 1.25 mg/dL 11/07/2023 8:50 [facility] eGFR 6(L) >60 mL/min/1.73 m2 11/07/2023 8:50 EST [facility] Blood VENOUS BLOOD / Unknown Venipuncture / Unknown 11/07/2023 7:58 EST 11/07/2023 8:16 EST us Kiley Tillman MD CHEMISTRY & BLOOD GAS ORDERABL ES Final Result Performing Organization Address [facility] de Phone Number [facility] [address] [place] [address] * (ABNORMAL) HEMOGLOBIN A1C (11/07/2023 7:57 EST) Hemoglobin A1c 11.6(H) <5.7 % 11/08/2023 11:44 EST [facility] Comment: Glycemic Status References: Normal: ??<5.7% Pre-Diabetes: ??5.7% - 6.4% Diagnostic of Diabetes: ??> or = 6.5% (if confirmed) Est Avg Glucose 286 mg/dL 11:44 EST [facility] Comment:The eAG represents t he A1c result expressed as average glucose in mg/dL. Blood VENOUS BLOOD / Unknown Venipuncture / Unknown 11/07/2023 7:57 EST 11/07/2023 8:16 EST Chad Davila MD CHEMISTRY & BLOOD GAS ORDERABLES Final Result Performing Organization Address [facility] de Phone Number [facility] [address] [place] [address] * (ABNORMAL) SED RATE (11/07/2023 7:57 EST) Sed Rate >100(H) 0 - 20 mm/hr 11/07/2023 14:18 EST [facility] Blood VENOUS BLOOD / Unknown Venipuncture / Unknown 11/07/2023 7:57 EST 11/07/2023 8:16 EST Narrative [facility] - 11/07/2023 14:18 EST Sample retested, result confirmed us Rajesh Vazquez MD HEMATOLOGY & PF4 ORDERABLES Bettie l Result Performing Organization Address City/[facility]/ZIP Co de Phone Number [facility] [address] [place] [address] * (ABNORMAL) COMPLETE BLOOD COUNT (11/07/2023 7:57 EST) WBC 8.14 4.00 - 10.40 K/cmm 11/07/2023 8:24 [facility] RBC 3.95(L) 4.36 - 5.78 M/cmm 11/07/2023 8:24 [facility] Hemoglobin 12.1(L) 13.8 - 17.3 g/dL 11/07/2023 8:24 [facility] HCT 36.2(L) 39.5 - 50.2 % 11/07/2023 8:24 [facility] MCV 92 81 - 95 fL 11/07/2023 8:24 [facility] MCH 30.6 27.6 - 33.0 pg 11/07/2023 8:24 [facility] MCHC 33.4 32.8 - 36.4 g/dL 11/07/2023 8:24 [facility] RDW-CV 12.0 <14.2 % 11/07/2023 8:24 [facility] RDW-SD 40.9 <46.0 fl 11/07/2023 8:24 [facility] PLT 247 141 - 377 K/cmm 11/07/2023 8:24 [facility] MPV 12.0 9.5 - 12.7 fL 11/07/2023 8:24 [facility] Blood VENOUS BLOOD / Unknown Venipuncture / Unknown 11/07/2023 7:57 EST 11/07/2023 8:16 EST us Kiley Tillman MD HEMATOLOGY & PF4 ORDERABLES Fi nal Result Performing Organization Address City/[facility]/ZIP Co de Phone Number [facility] [address] [place] [phone] documented in this encounter Visit Diagnoses Diagnosis Diabetic foot infection ([facility])- Primary Type II or unspecified type diabetes mellitus with other specified manifestations, not stated as uncontrolled Diabetic foot infection ([facility]) Type II or unspecified type diabetes mellitus with other specified manifestations, not stated as uncontrolled ESRD (end stage renal disease) on dialysis ([facility]) End stage renal disease COVID ESRD (end stage renal disease) ([facility]) End stage renal disease Type 2 diabetes mellitus with hypoglycemia without coma, with long-term current use of insulin ([facility]) ESRD (end stage renal disease) ([facility]) End stage renal disease COVID Type 2 diabetes mellitus with hypoglycemia without coma, with long-term current use of insulin ([facility]) documented in this encounter Admitting Diagnoses Diagnosis Diabetic foot infection ([facility]) Type II or unspecified type diabetes mellitus with other specified manifestations, not stated as uncontrolled documented in this encounter Administered Medications Inactive Administered Medications - up to 3 most recent administrations Medication Order MAR Action Action Date Dose Rate Site acetaminophen (TYLENOL) tablet 1,000 mg 1,000 mg, oral, EVERY 8 HOURS PRN, Starting on Wed11/07/23 at 1541, Until Wed11/10/23 at 2019, Pain, Routine Given 11/10/2023 18:04 EST 1,000 mg Given 11/08/2023 17:04 EST 1,000 mg Given 11/08/2023 8:25 EST 1,000 mg acetaminophen (TYLENOL) tablet 650 mg 650 mg, oral, EVERY 8 HOURS PRN, Starting on Wed11/07/23 at 0654, Until Wed11/07/23 at 1147, Pain, Routine Given 11/07/2023 10:10 EST 650 mg amLODIPine (NORVASC) tablet 10 mg 10 mg, oral, DAILY, First dose on Wed11/08/23 at 1145, Until Discontinued, Routine Given 11/10/2023 10:13 EST 10 mg Given 11/09/2023 9:57 EST 10 mg Given 11/08/2023 17:52 EST 10 mg amoxicillin-clavulanate (AUGMENTIN) 500-125 mg per tablet 1 Tablet 1 Tablet, oral, EVERY 24 HOURS, 7 doses, First dose (after last modification) on Wed11/08/23 at 2100, Last dose on Wed11/14/23 at 2100, Routine Given 11/09/2023 20:29 EST 1 Tablet Given 11/08/2023 21:32 EST 1 Tablet atorvastatin (LIPITOR) tablet 40 mg 40 mg, oral, DAILY, First dose on 11/07/23 at 0900, Until Discontinued, Routine Given 11/10/2023 10:14 EST 40 mg Given 11/09/2023 9:57 EST 40 mg Given 11/08/2023 8:26 EST 40 mg calcium carbonate (TUMS) tablet 500 mg (200 mg elemental calcium) 1 Tablet 1 Tablet, oral, NOW X1, 1 dose, On Wed11/09/23 at 0015, Routine Given 11/09/2023 0:30 EST 1 Tablet calcium carbonate (TUMS) tablet 500 mg (200 mg elemental calcium) 2 Tablet 2 Tablet, oral, EVERY MON, WED, FRI (DIALYSIS), First dose on Wed11/08/23 at 1415, Until Discontinued, Routine Given 11/08/2023 13:51 EST 2 Tablets calcium carbonate (TUMS) tablet 500 mg (200 mg elemental calcium) 2 Tablet 2 Tablet, oral, 3 TIMES DAILY WITH MEALS, First dose (after last modification) on Wed11/08/23 at 1700, Until Discontinued, Routine Given 11/10/2023 17:2 6 EST 2 Tablets Given 11/09/2023 17:52 EST 2 Tablets Given 11/09/2023 13:25 EST 2 Tablets calcium carbonate (TUMS) tablet 500 mg (200 mg elemental calcium) 2 Tablet 2 Tablet, oral, EVERY MON, WED, WED (DIALYSIS), First dose (after last reorder) on Wed11/10/23 at 0800, Until Discontinued, Routine Given 11/10/2023 11:45 EST 2 Tablets calcium carbonate suspension 1,000 mg 1,000 mg, oral, 3 times daily with meals, First dose on 11/07/23 at 1800, Until Discontinued, Routine Given 11/08/2023 8:25 EST 1,000 mg carvediloL (COREG) tablet 12.5 mg 12.5 mg, oral, 2 TIMES DAILY WITH BREAKFAST & DINNER, First dose on 11/07/23 at 0800, Until Discontinued, Routine Given 11/10/2023 17:28 EST 12.5 mg Given 11/10/2023 10:14 EST 12.5 mg Given 11/09/2023 17:52 EST 12.5 mg cefTRIAXone (ROCEPHIN) 1,000 mg in sodium chloride (NS MBP) 50 mL IVPB 1,000 mg, intravenous, Administer over 30 Minutes, EVERY 24 HOURS, 7 doses, First dose on Wed11/07/23 at 1200, Last dose on 11/13/23 at 1200, Type of Therapy: Empiric, Suspected Indication (Select all that apply): Moderate DM foot infection, ID Consult: No, Routine Given 11/07/2023 14:12 EST 1,000 mg cholecalciferol (Vitamin D3) tablet 2,000 Units 2,000 Units, oral, DAILY, First dose on Wed11/09/23 at 0900, Until Discontinued, Routine Given 11/10/2023 10:13 EST 2,000 Units Given 11/09/2023 9:57 EST 2,000 Units ciprofloxacin (CIPRO) IVPB 400 mg 400 mg, intravenous, Administer over 60 Minutes, NOW X1, 1 dose, On Wed11/07/23 at 0630, Type of Therapy: Definitive, Based on Cultures, Suspected Indication (Select all that apply): Infection due to Klebsiella aerogenes (unable to take tmp/smx), Controlled Antibiotic Has ID Approved? No, Please select the appropriate choice: After 5 pm, Before 8 am, call for approval at 8 am, Routine Given 11/07/2023 6:47 EST 400 mg dextrose 50 % solution 12.5 g 12.5 g (25 mL), intravenous, PRN, Starting on Wed11/07/23 at 0552, Until Wed11/10/23 at 2019, Low Blood Sugar, Routine Given 11/09/2023 16:45 EST 12.5 g Given 11/09/2023 9:02 EST 12.5 g Given 11/08/2023 7:50 EST 12.5 g epoetin ken (EPOGEN) 20,000 unit/2 mL injection 1,000 Units 1,000 Units, intravenous, EVERY MON, WED, FRI (DIALYSIS), First dose on Wed11/08/23 at 1215, Until Discontinued, Routine Given 11/10/2023 11:38 EST 1,000 Uni ts Given 11/08/2023 13:18 EST 1,000 Units glucagon injection 1 mg 1 mg, intramuscular, As needed, Starting on Wed11/07/23 at 0552, Until Wed11/10/23 at 2019, Low Blood Sugar, Routine HYDROmorphone (DILAUDID) tablet 2 mg 2 mg, oral, ONCE PRN, 1 dose, Starting on Wed11/08/23 at 0051, Until Wed11/08/23 at 0354, Pain, Routine Given 11/08/2023 3:54 EST 2 mg HYDROmorphone (DILAUDID) tablet 2-4 mg 2-4 mg, oral, EVERY 4 HOURS PRN, Starting on Wed11/07/23 at 1002, Until Wed11/10/23 at 1038, Pain, Routine Given 11/09/2023 20:30 EST 2 mg Given 11/09/2023 13:29 EST 4 mg Given 11/08/2023 22:24 EST 4 mg insulin aspart U-100 (NOVOLOG FLEXPEN) injection subcutaneous, 3 TIMES DAILY WITH MEALS, First dose on Wed11/07/23 at 0800, Until Discontinued, Routine Given 11/10/2023 17:27 EST 1 Units Given 11/10/2023 10:25 EST 3 Units Given 11/08/2023 15:24 EST 1 Units insulin glargine (LANTUS SOLOSTAR/SEMGLEE) injection pen 20 Units 20 Units, subcutaneous, AT BEDTIME, First dose (after last modification) on Wed11/08/23 at 2100, Until Discontinued, Routine Given 11/08/2023 21:33 EST 20 Units insulin glargine (LANTUS SOLOSTAR/SEMGLEE) injection pen 25 Units 25 Units, subcutaneous, ONCE DAILY L.A. INSULIN, First dose on Wed11/10/23 at 2000, Until Discontinued, Routine insulin glargine (LANTUS SOLOSTAR/SEMGLEE) injection pen 40 Units 40 Units, subcutaneous, AT BEDTIME, First dose (after last modification) on Wed11/07/23 at 2100, Until Discontinued, Routine Given 11/07/2023 20:25 EST 40 Units metroNIDAZOLE (FLAGYL) tablet 500 mg 500 mg, oral, EVERY 8 HOURS, 21 doses, First dose on Wed11/07/23 at 0800, Last dose on Wed11/14/23 at 0000, Routine Given 11/07/2023 8:02 EST 500 mg multivitamin (NEPHROVITE) 0.8 mg tablet 1 Tablet 1 Tablet, oral, AT BEDTIME, First dose on Wed11/08/23 at 2100, Until Discontinued, Routine Given 11/09/2023 20:3 0 EST 1 Tablet Given 11/08/2023 21:32 EST 1 Tablet nicotine (NICODERM CQ) 21 mg/24 hr patch 1 Patch 1 Patch, transdermal, DAILY, First dose on Wed11/07/23 at 0900, Until Discontinued, Routine Patch Applied 11/10/2023 10:18 EST 1 Patch Right Arm Patch Applied 11/09/2023 9:57 EST 1 Patch Ri ght Shoulder Patch Applied 11/08/2023 8:32 EST 1 Patch Ri ght Arm olmesartan (BENICAR) tablet 10 mg 10 mg, oral, DAILY, First dose on Wed11/08/23 at 1145, Until Discontinued, Routine Given 11/10/2023 10:14 EST 10 mg Given 11/09/2023 9:57 EST 10 mg Given 11/08/2023 17:53 EST 10 mg ondansetron (ZOFRAN-ODT) disintegrating tablet 4 mg 4 mg, oral, NOW X1, 1 dose, On Wed11/08/23 at 1745, Routine Given 11/08/2023 17:53 EST 4 mg ondansetron (ZOFRAN-ODT) disintegrating tablet 4 mg 4 mg, oral, NOW X1, 1 dose, On Wed11/09/23 at 0615, Routine Given 11/09/2023 6:40 EST 4 mg polyethylene glycol 3350 (MIRALAX) packet 17 g 17 g, oral, DAILY, First dose on Wed11/10/23 at 0900, Until Discontinued, Routine Given 11/10/2023 10:13 EST 17 g pregabalin (LYRICA) capsule 150 mg 150 mg, oral, 2 TIMES DAILY, First dose on Wed11/07/23 at 0900, Until Discontinued, Routine Given 11/10/2023 10:13 EST 1 50 mg Given 11/09/2023 20:29 EST 150 mg Given 11/09/2023 9:58 EST 150 mg remdesivir 100 mg in sodium chloride (NS) 0.9 % 100 mL IVPB 100 mg, intravenous, Administer over 60 Minutes, EVERY 24 HOURS, 2 doses, First dose on Wed11/08/23 at 0900, Last dose on Wed11/09/23 at 0900, Type of Therapy: Definitive, Based on Cultures, Indication: COVID-19, Does the patient have a resulted COVID positive test AND it is within 10 days of symptom onset? Yes, Routine Given 11/09/2023 10:06 EST 100 mg Given 11/08/2023 8:32 EST 100 mg remdesivir 100 mg in sodium chloride (NS) 0.9 % 100 mL IVPB 100 mg, intravenous, Administer over 60 Minutes, EVERY 24 HOURS, 2 doses, First dose (after last modification) on Wed11/10/23 at 0900, Last dose on Wed11/11/23 at 0900, Type of Therapy: Definitive, Based on Cultures, Indication: COVID-19, Does the patient have a resulted COVID positive test AND it is within 10 days of symptom onset? Yes, Routine Given 11/10/2023 10:13 EST 100 mg remdesivir 200 mg in sodium chloride (NS) 0.9 % 100 mL IVPB 200 mg, intravenous, Administer over 60 Minutes, NOW X1, 1 dose, On Wed11/07/23 at 0730, Type of Therapy: Definitive, Based on Cultures, Indication: COVID-19, Does the patient have a resulted COVID positive test AND it is within 10 days of symptom onset? Yes, Routine Given 11/07/2023 8:03 EST 200 mg senna (SENOKOT) tablet 1 Tablet 1 Tablet, oral, AT BEDTIME, First dose on Wed11/10/23 at 2100, Until Discontinued, Routine sevelamer carbonate (RENVELA) tablet 1,600 mg 1,600 mg, oral, 3 TIMES DAILY WITH MEALS, First dose on Wed11/07/23 at 1745, Until Discontinued, Routine Given 11/10/2023 17:27 EST 1,600 mg Given 11/10/2023 10:14 EST 1,600 mg Given 11/09/2023 17:52 EST 1,600 mg documented in this encounter Discontinued Medications Medication Sig Discontinue Reason Start Date End Da te furosemide (LASIX) 20 mg tablet Take 1 Tablet by mouth 2 times daily. 11/10/2023 VICTOZA 3-JULY 0.6 mg/0.1 mL (18 mg/3 mL) injectable pen 08/27/2023 11/10/2023 documented as of this encounter Active and Recently Administered Medications Times are shown in EST. Scheduled Medication Order 11/08/2023 11/09/2023 11/10/2023 amLODIPine (NORVASC) tablet 10 mg 10 mg, oral, DAILY, First dose on Wed11/08/23 at 1145, Until Discontinued, Routine 1752 (Given - Provider: Mona Cope, RN) 0957 (Given - Provider: Kaye Lino, VIDYA) 1013 (Given - Provider: Kaden Galeas, RN) amoxicillin-clavulanate (AUGMENTIN) 500-125 mg per tablet 1 Tablet 1 Tablet, oral, EVERY 24 HOURS, 7 doses, First dose (after last modification) on Wed11/08/23 at 2100, Last dose on Wed11/14/23 at 2100, Routine 2132 (Given - Provider: Tara Sheets, VIDYA) 2028 (Given - Provider: Mona Cope, VIDYA) atorvastatin (LIPITOR) tablet 40 mg 40 mg, oral, DAILY, First dose on Wed11/07/23 at 0900, Until Discontinued, Routine 0826 (Given - Provider: Michelle Rojo, VIDYA) 0957 (Given - Provider: Kaye Lino, VIDYA) 1014 (Given - Provider: Kaden Galeas, VIDYA) calcium carbonate (TUMS) tablet 500 mg (200 mg elemental calcium) 1 Tablet (COMPLETED) 1 Tablet, oral, NOW X1, 1 dose, On Wed11/09/23 at 0015, Routine 0030 (Given - Provider: Tara Sheets, RN) calcium carbonate (TUMS) tablet 500 mg (200 mg elemental calcium) 2 Tablet (CANCELED) 2 Tablet, oral, EVERY MON, WED, FRI (DIALYSIS), First dose on Wed11/08/23 at 1415, Until Discontinued, Routine 1351 (Given - Provider: Kaye Edmondson, VIDYA) calcium carbonate (TUMS) tablet 500 mg (200 mg elemental calcium) 2 Tablet 2 Tablet, oral, 3 TIMES DAILY WITH MEALS, First dose (after last modification) on Wed11/08/23 at 1700, Until Discontinued, Routine 1753 (Given - Provider: Mona Cope RN) 0957 (Given - Provider: Kaye Lino, VIDYA)1325 (Given - Provider: Kaye Lino RN)1752 (Given - Provider: Kaye Lino RN) 1013 (Not Given - Provider: Kaden Galeas, VIDYA - Reason: Patient/family refused)1200 (Canceled Entry - Provider: Batch Job User Admin - Comment: Automatically canceled at discontinue of medication order)1726 (Given - Provider: Aurelio Lindsay, VIDYA) calcium carbonate (TUMS) tablet 500 mg (200 mg elemental calcium) 2 Tablet 2 Tablet, oral, EVERY WED, WED, WED (DIALYSIS), First dose (after last reorder) on Wed11/10/23 at 0800, Until Discontinued, Routine 1145 (Given - Provider: Fiona Saunders, RN) calcium carbonate suspension 1,000 mg (CANCELED) 1,000 mg, oral, 3 times daily with meals, First dose on Wed11/07/23 at 1800, Until Discontinued, Routine 0825 (Given - Provider: Michelle Rojo RN)1723 (Not Given - Provider: Michelle Rojo RN - Reason: Discontinued) carvediloL (COREG) tablet 12.5 mg 12.5 mg, oral, 2 TIMES DAILY WITH BREAKFAST & DINNER, First dose on Wed11/07/23 at 0800, Until Discontinued, Routine 0825 (Given - Provider: Michelle Rojo RN)1752 (Given - Provider: Mona Cope RN) 0957 (Given - Provider: Kaye Lino RN)1752 (Given - Provider: Kaye Lino RN) 1014 (Given - Provider: Kaden Galeas, VIDYA)1728 (Given - Provider: Aurelio Lindsay, VIDYA) cholecalciferol (Vitamin D3) tablet 2,000 Units 2,000 Units, oral, DAILY, First dose on Wed11/09/23 at 0900, Until Discontinued, Routine 0957 (Given - Provider: Kaye Lino RN) 1013 (Given - Provider: Kaden Galeas, VIDYA) epoetin ken (EPOGEN) 20,000 unit/2 mL injection 1,000 Units 1,000 Units, intravenous, EVERY WED, WED, FRI (DIALYSIS), First dose on Wed11/08/23 at 1215, Until Discontinued, Routine 1318 (Given - Provider: Kaye Edmondson RN) 1138 (Given - Provider: Fiona Saundres RN) insulin aspart U-100 (NOVOLOG FLEXPEN) injection subcutaneous, 3 TIMES DAILY WITH MEALS, First dose on Wed11/07/23 at 0800, Until Discontinued, Routine 08 (Not Given - Provider: Michelle Rojo RN - Reason: Order parameters not met - Comment: critical fsbg 23 this am)1524 (Given - Provider: Kaye Edmondson, VIDYA)1856 (Not Given - Provider: Mona Cope RN - Reason: Order parameters not met - Comment: blood glucose 167) 1005 (Not Given - Provider: Kaye Lino RN - Reason: Order parameters not met)1332 (Not Given - Provider: Kaye Lino RN - Reason: Order parameters not met)1803 (Not Given - Provider: Kaye Lino RN - Reason: Order parameters not met) 1025 (Given - Provider: Kaden Galeas RN)1200 (Canceled Entry - Provider: Batch Job User Admin - Comment: Automatically canceled at discontinue of medication order)1727 (Given - Provider: Aurelio Lindsay RN) insulin glargine (LANTUS SOLOSTAR/SEMGLEE) injection pen 20 Units (CANCELED) 20 Units, subcutaneous, AT BEDTIME, First dose (after last modification) on Wed11/08/23 at 2100, Until Discontinued, Routine 2132 (Given - Provider: Tara Sheets, VIDYA) insulin glargine (LANTUS SOLOSTAR/SEMGLEE) injection pen 25 Units 25 Units, subcutaneous, ONCE DAILY L.A. INSULIN, First dose on Wed11/10/23 at 2000, Until Discontinued, Routine 1999 (Canceled Entry - Provider: Batch Job User Admin - Comment: Automatically canceled at discontinue of medication order) multivitamin (NEPHROVITE) 0.8 mg tablet 1 Tablet 1 Tablet, oral, AT BEDTIME, First dose on Wed11/08/23 at 2100, Until Discontinued, Routine 2131 (Given - Provider: Tara Sheets, RN) 2030 (Given - Provider: Mona Cope, VIDYA) nicotine (NICODERM CQ) 21 mg/24 hr patch 1 Patch 1 Patch, transdermal, DAILY, First dose on Wed11/07/23 at 0900, Until Discontinued, Routine 830 (Patch Removed - Provider: Michelle Rojo RN)0832 (Patch Applied - Provider: Michelle Rojo RN) 0957 (Patch Applied - Provider: Kaye Lino, RN) 1013 (Patch Removed - Provider: Kaden Galeas RN)1018 (Patch Applied - Provider: Kaden Galeas RN)181 (Due: Patch Removed - Provider: Batch Job User Admin - Comment: Time automatically adjusted from order being discontinued) olmesartan (BENICAR) tablet 10 mg 10 mg, oral, DAILY, First dose on Wed11/08/23 at 1145, Until Discontinued, Routine 1753 (Given - Provider: Mona Cope RN) 0957 (Given - Provider: Kaye Lino RN) 1014 (Given - Provider: Kaden Galeas, VIDYA) ondansetron (ZOFRAN-ODT) disintegrating tablet 4 mg (COMPLETED) 4 mg, oral, NOW X1, 1 dose, On Wed11/08/23 at 1745, Routine 1753 (Given - Provider: Mona Cope RN) ondansetron (ZOFRAN-ODT) disintegrating tablet 4 mg (COMPLETED) 4 mg, oral, NOW X1, 1 dose, On Wed11/09/23 at 0615, Routine 0640 (Given - Provider: Tara Sheets, VIDYA) polyethylene glycol 3350 (MIRALAX) packet 17 g 17 g, oral, DAILY, First dose on Wed11/10/23 at 0900, Until Discontinued, Routine 1013 (Given - Provider: Kaden Galeas, VIDYA) pregabalin (LYRICA) capsule 150 mg 150 mg, oral, 2 TIMES DAILY, First dose on Wed11/07/23 at 0900, Until Discontinued, Routine 0825 (Given - Provider: Michelle Rojo RN)213 (Given - Provider: Tara Sheets, RN) 0958 (Given - Provider: Kaye Lino, VIDYA)202 (Given - Provider: Mona Cope RN) 1013 (Given - Provider: Kaden Galeas RN) remdesivir 100 mg in sodium chloride (NS) 0.9 % 100 mL IVPB (COMPLETED) 100 mg, intravenous, Administer over 60 Minutes, EVERY 24 HOURS, 2 doses, First dose on Wed11/08/23 at 0900, Last dose on Wed11/09/23 at 0900, Type of Therapy: Definitive, Based on Cultures, Indication: COVID-19, Does the patient have a resulted COVID positive test AND it is within 10 days of symptom onset? Yes, Routine 0832 (Given - Provider: Michelle Rojo RN) 1006 (Given - Provider: Kaye Lino RN) remdesivir 100 mg in sodium chloride (NS) 0.9 % 100 mL IVPB 100 mg, intravenous, Administer over 60 Minutes, EVERY 24 HOURS, 2 doses, First dose (after last modification) on Wed11/10/23 at 0900, Last dose on Wed11/11/23 at 0900, Type of Therapy: Definitive, Based on Cultures, Indication: COVID-19, Does the patient have a resulted COVID positive test AND it is within 10 days of symptom onset? Yes, Routine 1013 (Given - Provider: Kaden Galeas, VIDYA) senna (SENOKOT) tablet 1 Tablet 1 Tablet, oral, AT BEDTIME, First dose on Wed11/10/23 at 2100, Until Discontinued, Routine sevelamer carbonate (RENVELA) tablet 1,600 mg 1,600 mg, oral, 3 TIMES DAILY WITH MEALS, First dose on Wed11/07/23 at 1745, Until Discontinued, Routine 0825 (Given - Provider: Michelle Rojo RN)1738 (Not Given - Provider: Michelle Rojo RN - Reason: Other - Comment: patient during dialysis)1753 (Given - Provider: Mona Cope RN) 0957 (Given - Provider: Kaye Lino RN)1325 (Given - Provider: Kaye Lino, VIDYA)1752 (Given - Provider: Kaye Lino RN) 1014 (Given - Provider: Kaden Galeas, VIDYA)1200 (Canceled Entry - Provider: Batch Job User Admin - Comment: Automatically canceled at discontinue of medication order)1727 (Given - Provider: Aurelio Lindsay RN) PRN Medication Order 11/08/2023 11/09/2023 11/10/2023 acetaminophen (TYLENOL) tablet 1,000 mg 1,000 mg, oral, EVERY 8 HOURS PRN, Starting on Wed11/07/23 at 1541, Until Wed11/10/23 at 2019, Pain, Routine 0002 (Given - Provider: Karli Reyes RN)0825 (Given - Provider: Michelle Rojo, RN)1704 (Given - Provider: Michelle Rojo RN) 1804 (Given - Provider: Aurelio Lindsay RN) dextrose 50 % solution 12.5 g 12.5 g (25 mL), intravenous, PRN, Starting on 11/07/23 at 0552, Until Wed11/10/23 at 2019, Low Blood Sugar, Routine 0750 (Given - Provider: Michelle Rojo RN) 0902 (Given - Provider: Kaye Lino, RN)1645 (Given - Provider: Kaye Lino, RN) glucagon injection 1 mg 1 mg, intramuscular, As needed, Starting on 11/07/23 at 0552, Until Wed11/10/23 at 2019, Low Blood Sugar, Routine HYDROmorphone (DILAUDID) tablet 2 mg (COMPLETED) 2 mg, oral, ONCE PRN, 1 dose, Starting on 11/08/23 at 0051, Until Wed11/08/23 at 0354, Pain, Routine 0354 (Given - Provider: Karli Reyes RN) HYDROmorphone (DILAUDID) tablet 2-4 mg (CANCELED) 2-4 mg, oral, EVERY 4 HOURS PRN, Starting on 11/07/23 at 1002, Until Wed11/10/23 at 1038, Pain, Routine 0147 (Given - Provider: Karli Reyes RN)0825 (Given - Provider: Michelle Rojo RN)1402 (Given - Provider: Michelle Rojo RN)1824 (Given - Provider: Michelle Rojo RN)2224 (Given - Provider: Tara Sheets, VIDYA) 1329 (Given - Provider: Kaye Lino, VIDYA)2030 (Given - Provider: Mona Cope RN) lidocaine (PF) 10 mg/mL (1 %) injection 2 mg 2 mg, intradermal, PRN, 4 doses, Starting on 11/07/23 at 0726, Until Wed11/10/23 at 2019, peripheral intravenous catheter placement, Routine documented in this encounter Orders Medications Ordered That Davide ht Not Have Been Administered Count Last Ordered Date First Ordered Date insulin glargine (LANTUS MARITZA OSTAR/SEMGLEE) injection pen 25 Units 1 11/10/2023 senna (SENOKOT) tablet 1 Tablet 1 remdesivir 100 mg in sodium chloride (NS) 0.9 % 100 mL IVPB 1 11/09/2023 amoxicillin-clavulanate (AUG MENTIN) 500-125 mg per tablet 1 Tablet 1 11/08/2023 metroNIDAZOLE (FLAGYL) tablet 500 mg 1 10/25 vancomycin 1,300 mg central line syringe 1 11/08/2023 vancomycin 900 mg central li ne syringe 50 mg/mL 3 11/08/2023 11/07/2023 acetaminophen (TYLENOL) tablet 650 mg 1 ciprofloxacin (CIPRO) IVPB 400 mg 1 ciprofloxacin HCl (CIPRO) tablet 500 mg 1 0 11/07/2023 glucagon injection 1 mg 1 11/07/2023 insulin glargine (LANTUS MARITZA OSTAR/SEMGLEE) injection pen 50 Units 1 11/07/2023 lidocaine (PF) 10 mg/mL (1 % ) injection 2 mg 1 11/07/2023 Diet Count Last Ordered Date First Orde red Date DISCHARGE DIET 2 11/10/2023 Nursing Count Last Ordered Date First Orde red Date ACTIVITY INSTRUCTIONS 1 11/10/2023 BATHING INSTRUCTIONS 1 11/10/2023 WOUND CARE INSTRUCTIONS 2 11/10/2023 PT Count Last Ordered Date First Orde red Date PT EVALUATION AND TREAT 1 11/10/2023 IV Count Last Ordered Date First Orde red Date IV REQUEST 3 11/10/2023 11/07/2023 Dialysis Count Last Ordered Date First Orde red Date HEMODIALYSIS 1 11/08/2023 Admission Count Last Ordered Date First Orde red Date ADMIT TO INPATIENT 1 11/07/2023 Discharge Count Last Ordered Date First Orde red Date DISCHARGE PATIENT 1 11/10/2023 Legal Count Last Ordered Date First Orde red Date MISCELLANEOUS DISCHARGE INSTRUCTIONS 1 10/25 Equipment Count Last Ordered Date First Orde red Date GENERIC DME ORDER 1 11/10/2023 WALKER 1 11/10/2023 documented in this encounter Additional Health Concerns Infection Onset Date Last Indicated Resolved Time COVID-19 Comment:COVID+ 11/05/23 @[facility] (see scan) 11/08/2023 11/08/2023 11/17/2023 13:58 EST documented as of this encounter Care Teams Certified Residential Medication Aide Relationship Specialty Start Date End Date Ken Greer MD [address] [place] [address] PCP - General 07/07/23 documented as of this encounter
--- OUTSIDE RECORDS SUMMARY | 2024-12-05 12:15 | XMS_ITS | Encounter Summary ---
Author Organization [facility] Address [address] [place] [address] Care Team Providers Care Inspecting And Testing Lead Hand Name Role Phone Ken Greer MD Primary Care Provider [phone] Kiel Powers Unavailable Unavailable Encounter Details Date Type Department Care Team (Late st Contact Info) Description 11/04/2023 Documentation Visit [facility] [address] [place], [place] [id number] Yoanna Degroot, RN Social History Tobacco Use [...] on file documented as of this encounter Plan of Treatment Upcoming Encounters Date Type Department Care Team (Late st Contact Info) Description 12/06/2024 6:45 EST Treatment [facility] [place] [address] [place] [id number] Carlota Jin MD [address] [facility], [address] [place] [phone] 12/08/2024 6:45 EST Treatment [facility] [place] [address] [place], [place] [id number] Carlota Jin MD [address] [facility], [address] [phone] 12/11/2024 6:45 EST Treatment [facility] [place] [address] [place] [address] Carlota Jin MD [address] [facility], [address] [phone] 12/13/2024 6:45 EST Treatment [facility] [place] [address] [place], [place] [phone] Carlota Jin MD [address] [facility], [address] [phone] 12/15/2024 6:45 EST Treatment [facility] [place] [address] [place], [place] [id number] Carlota Jin MD [address] [facility], [address] [phone] 12/18/2024 6:45 EST Treatment [facility] [address] [place], [place] [id number] Carlota Jin MD [address] [phone] 12/20/2024 6:45 EST Treatment [facility] [address] [place], [place] [id number] Carlota Jin MD [address] [facility], [address] [phone] 12/22/2024 6:45 EST Treatment [facility] [place] [address] [place], [place] [phone] Carlota Jin MD [address] [facility], [facility] [address] [place] [phone] 12/25/2024 6:45 EST Treatment [facility] [place] [address] [place], [place] [id number] Carlota Jin MD 1 [facility], [facility] [address] [place] [phone] 12/27/2024 6:45 EST Treatment [facility] [address] [place] [address] Carlota Jin MD [address] [facility], [facility] [address] [place] [phone] 12/29/2024 6:45 EST Treatment [facility] [address] [place], [place] [phone] Carlota Jin MD 1 [facility], [facility] [address] [place] [phone] 01/01/2025 6:45 EDT Treatment [facility] [address] [place], [place] [phone] Carlota Jin MD 1 [facility], [address] [place] [phone] 01/03/2025 6:45 EDT Treatment [facility] [place] [address] [place], [place] [phone] Carlota Jin MD [address] [facility], [facility] [address] [place] [phone] 01/05/2025 6:45 EDT Treatment [facility] [place] [address] [place], [place] [phone] Carlota Jin MD [address] [facility], [address] [phone] 01/08/2025 6:45 EDT Treatment [facility] [place] [address] [place], [place] [phone] Carlota Jin MD [address] [facility], [address] [phone] 01/10/2025 6:45 EDT Treatment [facility] [place] [address] [place], [place] [phone] Carlota Jin MD [address] [phone] 01/12/2025 6:45 EDT Treatment [facility] [place] [address] [place], [place] [phone] Carlota Jin MD [address] [phone] 01/15/2025 6:45 EDT Treatment [facility] [place] [address] [place], [place] [phone] Carlota Jin MD [address] [facility], [facility] [place] [phone] 01/17/2025 6:45 EDT Treatment [facility] [place] [address] [place], [place] [phone] Carlota Jin MD 1 [facility], [facility] [place] [phone] 01/19/2025 6:45 EDT Treatment [facility] [place] [address] [place], [place] [phone] Carlota Jin MD [address] [facility], [facility] [place] [phone] 01/22/2025 6:45 EDT Treatment [facility] [place] [address] [place], [place] [phone] Carlota Jin MD [address] [facility], [facility] [place] [phone] 01/24/2025 6:45 EDT Treatment [facility] [place] [address] [place] [address] Carlota Jin MD 1 [facility], [facility] [address] [place] [phone] 01/26/2025 6:45 EDT Treatment [facility] [place] [address] [place], [place] [phone] Carlota Jin MD [address] [facility], [facility] [address] [place] [phone] 01/29/2025 6:45 EDT Treatment [facility] [place] [address] [place], [place] [phone] Carlota Jin MD [address] [facility], [facility] [address] [place] [phone] 01/31/2025 6:45 EDT Treatment [facility] [place] [address] [place], [place] [phone] Carlota Jin MD [address] [place] [address], [address] [phone] 02/02/2025 6:45 EDT Treatment [facility] [place] [address] [place], [place] [phone] Carlota Jin MD [address] [place] [address], [address] [phone] 02/05/2025 6:45 EDT Treatment [facility] [place] [address] [place], [place] [phone] Carlota Jin MD [address] [place] [address], [facility] [place] [phone] 02/07/2025 6:45 EDT Treatment [facility] [place] [address] [place], [place] [phone] Carlota Jin MD [address] [place] [address], [facility] [address] [place] [phone] 02/09/2025 6:45 EDT Treatment [facility] [place] [address] [place], [place] [phone] Carlota Jin MD 1 [facility], [address] [place] [phone] 02/12/2025 6:45 EDT Treatment [facility] [place] [address] [place], [place] [address] Carlota Jin MD 1 [facility], [facility] [address] [place] [phone] 02/14/2025 6:45 EDT Treatment [facility] [address] [place], [place] [phone] Carlota Jin MD [address] [facility], [facility] [place] [phone] 02/16/2025 6:45 EDT Treatment [facility] [place] [address] [place] [address] Carlota Jin MD 1 [facility], [facility] [place] [phone] 02/19/2025 6:45 EDT Treatment [facility] [address] [place], [place] [phone] Carlota Jin MD 1 [facility], [facility] [place] [phone] 02/21/2025 6:45 EDT Treatment [facility] [address] [place], [place] [phone] Carlota Jin MD 1 [facility], [facility] [place] [phone] documented as of this encounter Visit Diagnoses Not on filedocumented in this encounter Additional Health Concerns Infection Onset Date Last Indicated Resolved Time COVID-19 Comment:COVID+ 11/05/23 @[facility] (see scan) 11/08/2023 11/08/2023 11/17/2023 13:58 EST R/O COVID-19 12/20/2023 12/20/2023 12/20/2023 7:14 EST COVID-19 Comment:Collected @ [facility]. 03/12/2024 03/13/2024 04/01/2024 22: 15 EDT R/O COVID-19 05/30/2024 05/30/2024 05/30/2024 20:5 0 EDT documented as of this encounter Care Teams Inspecting And Testing Lead Hand Relationship Specialty Start Date End Date Ken Greer MD [address] [place] [address] PCP - General 07/07/23 Kiel Powers Compositor Apprentice Nephrology 05/31/24 documented as of this encounter
--- OUTSIDE RECORDS SUMMARY | 2024-12-05 12:15 | XMS_ITS | Encounter Summary ---
Author Organization [facility] Address [address] [place] [address] Care Team Providers Care Neighborhood Coordinator Name Role Phone Ken Greer MD Primary Care Provider [phone] Encounter Details Date Type Department Care Team (Latest Contact Info) Description 11/12/2023 6:[address] [facility] [address] [place], [place] [id number] Carlota Jin MD 1 [facility], Level [address] [place] [address] ESRD (end stage renal disease) ([facility]) (Primary Dx); Anemia of chronic renal failure, unspecified CKD stage; Hypoalbuminemia; Secondary hyperparathyroidism ([facility]) Social History Tobacco Use Types Packs/Day Years [...] - Temperature - - Respiratory Rate 16 11/12/2023 1722 EST Oxygen Saturation - - Inhaled Oxygen Concentration - - Weight 91.9 kg (202 lb 9.6 oz) 11/12/[address] Height - - Body Mass [...] documented in this encounter Progress Notes * Melissa Crespo RN - 11/12/2023 0645 EST 1000 - Report called to this unit from Acute Unit nurse, Candis, who reports that Xander continues to be Covid Pos, and was treated for a Diabetic Foot infection. He was given IV ABX while admitted and is now on PO meds. RN reports that no other changes were made to the dialysis treatment plan. documented in this encounter Miscellaneous Notes * Flowsheet Note - Melissa Crespo RN - 11/12/20232 EST 11/12/232035 Post-Hemodialysis Assessment Total Blood Processed (L) 66.42 Liters On Line Clearance: spKt/V 1.09 spKt/V Dialyzer Clearance Lightly streaked Treatment UFR (ml:kg:hr) 9.27 ml:kg:hr Critline refill Positive (31.3 - 30.8, Pos Refill) Fluid Removed (L) 3 L Post-Dialysis Scale Weight 110.3 kg (243 lb 2.7 oz) Wheelchair Weight 20.9 kg (46 lb 1.2 oz) Prosthesis Weight 0 kg (0 lb) Post-Treatment Weight (kg) 89.4 Treatment Weight Change (kg) 2.5 kg Day Target Weight (kg) 89.4 Post Sitting/Lying BP 136/73 Post Sitting/Lying pulse 68 Temp 36.4 ??C [...] 6:45 EST Treatment [facility] [place] [address] [place], [place] [id number] aCrlota Jin MD [address] [place] [address], [facility] [address] [place] [address] 12/08/2024 6:45 EST Treatment [facility] [place] [address] [place], [place] [id number] Carlota Jin MD 1 [facility], [facility] [address] [place] [phone] 12/11/2024 6:45 EST Treatment [facility] [place] [address] [place], [place] [id number] Carlota Jin MD 1 [facility], [facility] [address] [place] [phone] 12/13/2024 6:45 EST Treatment [facility] [place] [address] [place], [place] [id number] Carlota Jin MD [address] [place] [address], [facility] [address] [place] [phone] 12/15/2024 6:45 EST Treatment [facility] [place] [address] [place], [place] [phone] Carlota Jin MD [address] [place] [address], [facility] [address] [place] [phone] 12/18/2024 6:45 EST Treatment [facility] [place] [address] [place], [place] [id number] Carlota Jin MD 1 [facility], [facility] [address] [place] [phone] 12/20/2024 6:45 EST Treatment [facility] [place] [address] [place], [place] [id number] Carlota Jin MD [address] [place] [address], [facility] [address] [place] [phone] 12/22/2024 6:45 EST Treatment [facility] [place] [address] [place], [place] [id number] Carlota Jin MD 1 [facility], Level [address] [place] [phone] 12/25/2024 6:45 EST Treatment [facility] [place] [address] [place], [place] [address] Carlota Jin MD 1 [facility], [facility] [address] [place] [phone] 12/27/2024 6:45 EST Treatment [facility] [place] [address] [place], [place] [id number] Carlota Jin MD 1 [facility], [facility] [address] [place] [phone] 12/29/2024 6:45 EST Treatment [facility] [place] [address] [place], [place] [address] Carlota Jin MD 1 [facility], [facility] [address] [place] [phone] 01/01/2025 6:45 EDT Treatment [facility] [place] [address] [place] [address] Carlota Jin MD 1 [facility], [facility] [address] [place] [phone] 01/03/2025 6:45 EDT Treatment [facility] [address] [place], [place] [address] Carlota Jin MD 1 [facility], [facility] [address] [place] [phone] 01/05/2025 6:45 EDT Treatment [facility] [place] [address] [place], [place] [address] Carlota Jin MD 1 [facility], [facility] [address] [place] [phone] 01/08/2025 6:45 EDT Treatment [facility] [place] [address] [place], [place] [id number] Carlota Jin MD 1 [facility], [facility] [address] [place] [phone] 01/10/2025 6:45 EDT Treatment [facility] [place] [address] [place], [place] [id number] Carlota Jin MD [address] [place] [address], [facility] [address] [place] [phone] 01/12/2025 6:45 EDT Treatment [facility] [place] [address] [place], [place] [id number] Carlota Jin MD [address] [place] [address], [facility] [address] [place] [phone] 01/15/2025 6:45 EDT Treatment [facility] [place] [address] [place], [place] [phone] Carlota Jin MD [address] [place] [address], [facility] [address] [place] [phone] 01/17/2025 6:45 EDT Treatment [facility] [place] [address] [place], [place] [phone] Carlota Jin MD 1 [facility], [facility] [address] [place] [phone] 01/19/2025 6:45 EDT Treatment [facility] [place] [address] [place], [place] [phone] Carlota Jin MD 1 [facility], [facility] [address] [place] [phone] 01/22/2025 6:45 EDT Treatment [facility] [place] [address] [place], [place] [phone] Carlota Jin MD 1 [facility], [facility] [address] [place] [phone] 01/24/2025 6:45 EDT Treatment [facility] [place] [address] [place], [place] [phone] Carlota Jin MD 1 [facility], [facility] [address] [place] [phone] 01/26/2025 6:45 EDT Treatment [facility] [address] [place], [place] [phone] Carlota Jin MD 1 [facility], [facility] [address] [place] [phone] 01/29/2025 6:45 EDT Treatment [facility] [place] [address] [place], [place] [address] Carlota Jin MD 1 [facility], [facility] [address] [place] [phone] 01/31/2025 6:45 EDT Treatment [facility] [place] [address] [place], [place] [phone] Carlota Jin MD 1 [facility], [facility] [address] [place] [phone] 02/02/2025 6:45 EDT Treatment [facility] [place] [address] [place], [place] [phone] Carlota Jin MD 1 [facility], [facility] [address] [place] [phone] 02/05/2025 6:45 EDT Treatment [facility] [place] [address] [place], [place] [phone] Carlota Jin MD 1 [facility], [facility] [address] [place] [phone] 02/07/2025 6:45 EDT Treatment [facility] [place] [address] [place], [place] [address] Carlota Jin MD 1 [facility], [facility] [address] [place] [phone] 02/09/2025 6:45 EDT Treatment [facility] [place] [address] [place], [place] [address] Carlota Jin MD 1 [facility], [facility] [address] [place] [phone] 02/12/2025 6:45 EDT Treatment [facility] [place] [address] [place] [address] Carlota Jin MD 1 [facility], [facility] [address] [place] [phone] 02/14/2025 6:45 EDT Treatment [facility] [place] [address] [place], [place] [phone] Carlota Jin MD 1 [facility], [address] [phone] 02/16/2025 6:45 EDT Treatment [facility] [address] [place], [place] [phone] Carlota Jin MD 1 [facility], [address] [phone] 02/19/2025 6:45 EDT Treatment [facility] [address] [place], [place] [phone] Carlota Jin MD 1 [facility], [address] [phone] 02/21/2025 6:45 EDT Treatment [facility] [address] [place], [place] [phone] Carlota Jin MD 1 [facility], [address] [phone] documented as of this encounter Procedures Procedure Name Priority Date/Time Associated Diagnosis Comments COMPLETE BLOOD COUNT Routine 11/12/2023 17:31 EST ESRD (end stage renal disease) ([facility]) HEMODIALYSIS Routine 11/12/2023 17:22 EST ESRD (end stage renal disease) ([facility]) documented in this encounter Results * (ABNORMAL) COMPLETE BLOOD COUNT (11/12/2023 17:31 EST) WBC 12.94(H) 4.00 - 10.40 K/cmm 11/14/2023 17:07 [facility] RBC 3.24(L) 4.36 - 5.78 M/cmm 11/14/2023 17:07 [facility] Hemoglobin 10.0(L) 13.8 - 17.3 g/dL 11/14/2023 17:07 [facility] HCT 31.3(L) 39.5 - 50.2 % 11/14/2023 17:07 [facility] MCV 97(H) 81 - 95 fL 11/14/2023 17:07 [facility] MCH 30.9 27.6 - 33.0 pg 11/14/2023 17:07 [facility] MCHC 31.9(L) 32.8 - 36.4 g/dL 11/14/2023 17:07 [facility] RDW-CV 12.3 <14.2 % 11/14/2023 17:07 [facility] RDW-SD 43.2 <46.0 fl 11/14/2023 17:07 [facility] PLT 323 141 - 377 K/cmm 11/14/2023 17:07 [facility] MPV 12.1 9.5 - 12.7 fL 11/14/2023 17:07 [facility] Blood VENOUS BLOOD / Unknown Venipuncture / Unknown 11/12/2023 17:31 EST 11/12/2023 17:32 EST us Skye Gomez NP HEMATOLOGY & PF4 ORDERABLES Final Result [facility] [address] [place] [address] documented in this encounter Visit Diagnoses Diagnosis ESRD (end stage renal disease) ([facility])- Primary End stage renal disease Anemia [...] oral, EVERY 4 HOURS PRN, Starting on Wed11/12/23 at 1722, Until Wed11/12/23 at 2323, Pain, Routine, DialysisIndications:ESRD (end stage renal disease) (HCC-CMS) Given 11/12/2023 17:40 EST 650 mg calcium carbonate (TUMS) tablet 500 mg (200 mg elemental calcium) 2 Tablet 2 Tablet, oral, ONCE IN DIALYSIS, 1 dose, On Wed11/12/23 at 1745, Routine, DialysisIndications:ESRD (end stage renal disease) ([facility]),Secondary hyperparathyroidism (HCC-CMS) Given 11/12/2023 17:40 EST 2 Tablets epoetin ken (EPOGEN) 20,000 unit/2 mL injection 1,000 Units 1,000 Units, intravenous, ONCE IN DIALYSIS, 1 dose, On Wed11/12/23 at 1745, Routine, DialysisIndications:ESRD (end stage renal disease) ([facility]),Anemia of chronic renal failure, unspecified CKD stage Given 11/12/2023 17:46 EST 1,000 Units heparin injection 9,000 Units 9,000 Units, intravenous, ONCE IN DIALYSIS, 1 dose, On Wed11/12/23 at 1745, Routine, Dialysis, Now x1 bolus 4500 units to be given at the beginning of dialysis 1500 units/hour to be given over the course of dialysis (9000 units total). Stop 1 hour prior to end of treatment. To be administered per Policy [id number].Indications:ESRD (end stage renal disease) ([facility]) Given 11/12/2023 17:40 EST 9,000 Units LiquaCel liquid protein liquid 30 mL 30 mL, oral, ONCE IN DIALYSIS, 1 dose, On Wed11/12/23 at 1745, RoutineIndications:ESRD (end stage renal disease) ([facility]),Hypoalbuminemia Given 11/12/2023 17:40 EST 30 mL documented in this encounter Orders Dialysis Count Last Ordered Date First Orde red Date HEMODIALYSIS 1 11/12/2023 documented in this encounter Additional Health Concerns Infection Onset Date Last Indicated Resolved Time COVID-19 Comment:COVID+ 11/05/23 @[place] (see scan) 11/08/2023 11/08/2023 11/17/2023 13:58 EST documented as of this encounter Care Teams Neighborhood Coordinator Relationship Specialty Start Date End Date Ken Greer MD [address] [place] [address] PCP - General 07/07/23 documented as of this encounter
--- OUTSIDE RECORDS SUMMARY | 2024-12-05 12:15 | XMS_ITS | Encounter Summary ---
Author Organization [facility] Address [address] [place] [address] Care Team Providers Care Gym Teacher Name Role Phone Ken Greer MD Primary Care Provider [phone] Encounter Details Date Type Department Care Team (Latest Contact Info) Description 11/05/2023 Travel Social History Tobacco Use Types Packs/Day [...] Contact Info) Description 12/06/2024 6:45 EST Treatment [facility] [address] [place] [phone] Carlota Jin MD [address] [place] [phone] 12/08/2024 6:45 EST Treatment [facility] [address] [place], [place] [phone] Carlota Jin MD 1 [facility], [facility] [address] [place] [phone] 12/11/2024 6:45 EST Treatment [facility] [place] [address] [place], [place] [phone] Carlota Jin MD [address] [facility], Level [address] [place] [phone] 12/13/2024 6:45 EST Treatment [facility] [place] [address] [place] [address] Carlota Jin MD [address] [facility], [facility] [address] [place] [phone] 12/15/2024 6:45 EST Treatment [facility] [place] [address] [place], [place] [address] [phone] Carlota Jin MD [address] [facility], [facility] [address] [place] [phone] 12/18/2024 6:45 EST Treatment [facility] [place] [address] [place] [address] Carlota Jin MD [address] [facility], Level [address] [place] [phone] 12/20/2024 6:45 EST Treatment [facility] [place] [address] [place], [place] [phone] Carlota Jin MD [address] [facility], Level [address] [place] [phone] 12/22/2024 6:45 EST Treatment [facility] [place] [address] [place], [place] [address] Carlota Jin MD 1 [facility], [facility] [address] [place] [phone] 12/25/2024 6:45 EST Treatment [facility] [place] [address] [place], [place] [id number] Carlota Jin MD 1 [facility], [address] [phone] 12/27/2024 6:45 EST Treatment [facility] [place] [address] [place], [place] [address] Carlota Jin MD 1 [facility], [address] [phone] 12/29/2024 6:45 EST Treatment [facility] [place] [address] [place], [place] [address] Carlota Jin MD 1 [facility], [address] [phone] 01/01/2025 6:45 EDT Treatment [facility] [place] [address] [place], [place] [phone] Carlota Jin MD 1 [facility], [address] [phone] 01/03/2025 6:45 EDT Treatment [facility] [place] [address] [place], [place] [phone] Carlota Jin MD 1 [facility], [facility] [address] [place] [phone] 01/05/2025 6:45 EDT Treatment [facility] [place] [address] [place], [place] [id number] Carlota Jni MD 1 [facility], [facility] [address] [place] [phone] 01/08/2025 6:45 EDT Treatment [facility] [place] [address] [place], [place] [phone] Carlota Jin MD 1 [facility], [address] [phone] 01/10/2025 6:45 EDT Treatment [facility] [place] [address] [place], [place] [phone] Carlota Jin MD [address] [place] [address], [address] [phone] 01/12/2025 6:45 EDT Treatment [facility] [place] [address] [place], [place] [phone] Carlota Jin MD 1 [facility], [facility] [address] [place] [phone] 01/15/2025 6:45 EDT Treatment [facility] [place] [address] [place], [place] [id number] Carlota Jin MD 1 [facility], [facility] [address] [place] [phone] 01/17/2025 6:45 EDT Treatment [facility] [place] [address] [place], [place] [address] Carlota Jin MD 1 [facility], [facility] [address] [place] [phone] 01/19/2025 6:45 EDT Treatment [facility] [place] [address] [place], [place] [address] Carlota Jin MD 1 [facility], [facility] [address] [place] [phone] 01/22/2025 6:45 EDT Treatment [facility] [place] [address] [place], [place] [address] Carlota Jin MD 1 [facility], [address] [phone] 01/24/2025 6:45 EDT Treatment [facility] [place] [address] [place], [place] [id number] Carlota Jin MD 1 [facility], [address] [phone] 01/26/2025 6:45 EDT Treatment [facility] [place] [address] [place], [place] [phone] Carlota Jin MD 1 [facility], [facility] [address] [place] [phone] 01/29/2025 6:45 EDT Treatment [facility] [place] [address] [place], [place] [address] Carlota Jin MD [address] [facility], Level [address] [place] [phone] 01/31/2025 6:45 EDT Treatment [facility] [place] [address] [place], [place] [address] Carlota Jin MD [address] [facility], [facility] [address] [place] [phone] 02/02/2025 6:45 EDT Treatment [facility] [place] [address] [place], [place] [phone] Carlota Jin MD 1 [facility], [facility] [address] [place] [phone] 02/05/2025 6:45 EDT Treatment [facility] [place] [address] [place], [place] [address] Carlota Jin MD [address] [facility], [facility] [address] [place] [phone] 02/07/2025 6:45 EDT Treatment [facility] [place] [address] [place] [address] Carlota Jin MD [address] [facility], [facility] [address] [place] [phone] 02/09/2025 6:45 EDT Treatment [facility] [place] [address] [place], [place] [address] Carlota Jin MD [address] [facility], [facility] [address] [place] [phone] 02/12/2025 6:45 EDT Treatment [facility] [place] [address] [place], [place] [address] Carlota Jin MD [address] [place] [address], [address] [phone] 02/14/2025 6:45 EDT Treatment [facility] [place] [address] [place], [place] [phone] Carlota Jin MD [address] [place] [phone] 02/16/2025 6:45 EDT Treatment [facility] [place] [address] [place], [place] [address] Carlota Jin MD [address] [place] [address], [address] [phone] 02/19/2025 6:45 EDT Treatment [facility] [place] [address] [place], [place] [phone] Carlota Jin MD [address] [place] [phone] 02/21/2025 6:45 EDT Treatment [facility] [place] [address] [place], [place] [address] Carlota Jin MD [address] [place] [phone] documented as of this encounter Visit Diagnoses Not on filedocumented in this encounter Care Teams Gym Teacher Relationship Specialty Start Date End Date Ken Greer MD [facility] [place] [address] PCP - General 07/07/23 documented as of this encounter
--- OUTSIDE RECORDS SUMMARY | 2024-12-05 12:15 | XMS_ITS | Encounter Summary ---
Author Organization [facility] Address [address] [place] [address] Care Team Providers Care It Professional Name Role Phone Ken Greer MD Primary Care Provider [phone] Reason for Visit * Reason Onset Date Comments Other 11/10/2023 Encounter Details Date Type Department Care Team (Late st Contact Info) Description 11/10/2023 Telephone [facility] [address], [place] [id number] Kiel Powers Other Social History Tobacco Use Types Packs/Day Years [...] encounter Miscellaneous Notes * Telephone Encounter - Kiel Powers - 11/10/2023 1128 EST Outpatient SW Note- Confirmed w/[facility] that if Pt D/C's today/tomorrow, Pt is cleared for a Wednesday return for OPHD. Attempted to call Pt's spouse Hoda to provide her with updated OPHD schedule, due to COVID + status. Left VM asking for call back. Updated schedule is: Wednesday, 5:35 PM Arrival for a 6:00 Start & a 3-hr HD treatment. This schedule is for Wednesday (11/12); Wednesday (11/15) & Wed (11/17). Starting Sunday 11/19, Pt will return to his previous schedule. ADDENDUM- Hoda returned this 's call & the above information was reviewed. Hoda had no questions or concerns and was in agreement w/adjusted OPHD schedule. Kiel Powers, TESS, NON DESTRUCTIVE TESTING INSPECTOR Renal OP Dialysis Biomed Technician/Family Law Specialist documented in this encounter Plan of Treatment Upcoming Encounters Date Type Department Care Team (Late st Contact Info) Description 12/06/2024 6:45 EST Treatment [facility] [place] [address] [place], [place] [id number] Carlota Jin MD 1 [facility], [facility] [address] [place] [phone] 12/08/2024 6:45 EST Treatment [facility] [place] [address] [place], [place] [phone] Carlota Jin MD 1 [facility], [facility] [address] [place] [phone] 12/11/2024 6:45 EST Treatment [facility] [place] [address] [place], [place] [id number] Carlota Jin MD 1 [facility], [facility] [address] [place] [phone] 12/13/2024 6:45 EST Treatment [facility] [place] [address] [place], [place] [id number] Carlota Jin MD 1 [facility], [facility] [address] [place] [phone] 12/15/2024 6:45 EST Treatment [facility] [address] [place], [place] [phone] Carlota Jin MD 1 [facility], [facility] [address] [place] [phone] 12/18/2024 6:45 EST Treatment [facility] [place] [address] [place], [place] [id number] Carlota Jin MD 1 [facility], [facility] [address] [place] [phone] 12/20/2024 6:45 EST Treatment [facility] [place] [address] [place], [place] [phone] Carlota Jin MD 1 [facility], [facility] [address] [place] [phone] 12/22/2024 6:45 EST Treatment [facility] [place] [address] [place], [place] [id number] Carlota Jin MD 1 [facility], [facility] [address] [place] [phone] 12/25/2024 6:45 EST Treatment [facility] [place] [address] [place], [place] [phone] Carlota Jin MD 1 [facility], [facility] [address] [place] [phone] 12/27/2024 6:45 EST Treatment [facility] [place] [address] [place], [place] [id number] Carlota Jin MD 1 [facility], [facility] [address] [place] [phone] 12/29/2024 6:45 EST Treatment [facility] [place] [address] [place], [place] [phone] Carlota Jin MD 1 [facility], [facility] [address] [place] [phone] 01/01/2025 6:45 EDT Treatment [facility] [place] [address] [place], [place] [phone] Carlota Jin MD 1 [facility], [facility] [address] [place] [phone] 01/03/2025 6:45 EDT Treatment [facility] [place] [address] [place], [place] [id number] Carlota Jin MD 1 [facility], [facility] [address] [place] [phone] 01/05/2025 6:45 EDT Treatment [facility] [place] [address] [place] [address] Carlota Jin MD 1 [facility], [address] [phone] 01/08/2025 6:45 EDT Treatment [facility] [place] [address] [place], [place] [phone] Carlota Jin MD 1 [facility], [address] [phone] 01/10/2025 6:45 EDT Treatment [facility] [place] [address] [place] [address] Carlota Jin MD 1 [facility], [facility] [address] [place] [phone] 01/12/2025 6:45 EDT Treatment [facility] [place] [address] [place], [place] [phone] Carlota Jin MD 1 [facility], [facility] [address] [place] [phone] 01/15/2025 6:45 EDT Treatment [facility] [place] [address] [place], [place] [phone] Carlota Jin MD 1 [facility], [facility] [address] [place] [phone] 01/17/2025 6:45 EDT Treatment [facility] [place] [address] [place], [place] [id number] Carlota Jin MD 1 [facility], [address] [phone] 01/19/2025 6:45 EDT Treatment [facility] [place] [address] [place], [place] [phone] Carlota Jin MD 1 [facility], [address] [phone] 01/22/2025 6:45 EDT Treatment [facility] [place] [address] [place], [place] [address] Carlota Jin MD 1 [facility], [facility] [address] [place] [phone] 01/24/2025 6:45 EDT Treatment [facility] [place] [address] [place], [place] [id number] Carlota Jin MD 1 [facility], [facility] [address] [place] [phone] 01/26/2025 6:45 EDT Treatment [facility] [place] [address] [place], [place] [address] Carlota Jin MD 1 [facility], [address] [phone] 01/29/2025 6:45 EDT Treatment [facility] [place] [address] [place] [address] Carlota Jin MD 1 [facility], [address] [phone] 01/31/2025 6:45 EDT Treatment [facility] [place] [address] [place], [place] [id number] Carlota Jin MD 1 [facility], [address] [phone] 02/02/2025 6:45 EDT Treatment [facility] [address] [place], [place] [phone] Carlota Jin MD 1 [facility], [address] [phone] 02/05/2025 6:45 EDT Treatment [facility] [place] [address] [place], [place] [phone] Carlota Jin MD 1 [facility], [address] [phone] 02/07/2025 6:45 EDT Treatment [facility] [place] [address] [place], [place] [id number] Carlota Jin MD 1 [facility], [facility] [address] [place] [phone] 02/09/2025 6:45 EDT Treatment [facility] [place] [address] [place], [place] [phone] Carlota Jin MD 1 [facility], [facility] [address] [place] [phone] 02/12/2025 6:45 EDT Treatment [facility] [place] [address] [place], [place] [id number] Carlota Jin MD 1 [facility], [address] [phone] 02/14/2025 6:45 EDT Treatment [facility] [place] [address] [place], [place] [id number] Carlota Jin MD [address] [place] [address], [address] [phone] 02/16/2025 6:45 EDT Treatment [facility] [place] [address] [place], [place] [phone] Carlota Jin MD 1 [facility], [facility] [address] [place] [phone] 02/19/2025 6:45 EDT Treatment [facility] [place] [address] [place], [place] [phone] Carlota Jin MD 1 [facility], [facility] [address] [place] [phone] 02/21/2025 6:45 EDT Treatment [facility] [place] [address] [place] [address] Carlota Jin MD 1 [facility], Level [address] [place] [phone] documented as of this encounter Visit Diagnoses Not on filedocumented in this encounter Additional Health Concerns Infection Onset Date Last Indicated Resolved Time COVID-19 Comment:COVID+ 11/05/23 @[facility] (see scan) 11/08/2023 11/08/2023 11/17/2023 13:58 EST documented as of this encounter Care Teams It Professional Relationship Specialty Start Date End Date Ken Greer MD [address] [facility] [place] [address] PCP - General 07/07/23 documented as of this encounter
--- OUTSIDE RECORDS SUMMARY | 2024-12-05 12:15 | XMS_ITS | Encounter Summary ---
Author Organization [facility] Address [address] [place] [address] Care Team Providers Care Restaurant And Bar Manager Name Role Phone Ken Greer MD Primary Care Provider [phone] Encounter Details Date Type Department Care Team (Latest Contact Info) Description 11/05/2023 6:[address] [facility] [address] [place], [place] [phone] Carlota Jin MD 1 [facility], Level [address] [place] [phone] ESRD (end stage renal disease) ([facility]) (Primary Dx); Anemia of chronic renal failure, unspecified CKD stage; Hypoalbuminemia; Secondary hyperparathyroidism ([facility]); Cellulitis and abscess of foot, except toes [...] - Temperature - - Respiratory Rate 16 11/05/2023 0638 EST Oxygen Saturation - - Inhaled Oxygen Concentration - - Weight 87.9 kg (193 lb 12.6 oz) 11/05/2023 0637 EST Height - - Body Mass Index 28.62 07/08/2023 0839 EDT documented in this encounter Progress Notes * Marcela Cox RN - 11/05/2023 0645 EST LMTRC for pts PCP office in regards to s/s r/t cellulitis. Spoke to triage nurse from PCP office and explain chills, fever, nausea, etc. R/t cellulitis. They are recommending repeat ER visit. I made pt aware, he is hesitant. I told him I was going to talk towife to make her aware. Pt agreeable and says she will bring pt to ER post dialysis today for eval. documented in this encounter Miscellaneous Notes * Flowsheet Note - Marcela Cox RN - 11/05/2023 1355 EST 11/05/23 1049 Post-Hemodialysis Assessment Total Blood Processed (L) 90.1 Liters On Line Clearance: spKt/V 1.45 spKt/V Dialyzer Clearance Lightly streaked Treatment UFR (ml:kg:hr) 4.03 ml:kg:hr Fluid Removed (L) 2 L Post-Dialysis Scale Weight 86.5 kg (190 lb 11.2 oz) Wheelchair Weight 0 kg (0 lb) Prosthesis Weight 0 kg (0 lb) Post-Treatment Weight (kg) 86.5 Treatment Weight Change (kg) 1.4 kg Day Target Weight (kg) 86.4 Post Sitting/Lying BP 151/82 Post Sitting/Lying pulse 86 Post Standing BP 128/56 Post Standing Pulse 92 Temp 37.4 ??C (99.3 ??F) Temp src Temporal Post access assessment AVF/AFG Hemostasis achieved Yes Note 10 minute hold. Orientation Alert and Oriented x3 Yes Time Yes Place Yes Person Yes Cooperative Yes Disoriented No Discharge Ambulation Methods Ambulatory with assistive device Ambulation device Other (Comment) (departing with ) Wrap up items Patient Response to Treatment Removed 2L UF goal without difficulty. Comments pt d/c to [facility] ED post tx for further eval of cellulitis of LLE/IV abx regimen documented in this encounter Plan of Treatment Upcoming Encounters Date Type Department Care Team (Late st Contact Info) Description 12/06/2024 6:45 EST Treatment [facility] [place] [address] [place], [place] [phone] Carlota Jin MD 1 [facility], [address] [phone] 12/08/2024 6:45 EST Treatment [facility] [place] [address] [place], [place] [phone] Carlota Jin MD [address] [place] [phone] 12/11/2024 6:45 EST Treatment [facility] [place] [address] [place], [place] [phone] Carlota Jin MD [address] [phone] 12/13/2024 6:45 EST Treatment [facility] [place] [address] [place], [place] [phone] Carlota Jin MD [address] [place] [phone] 12/15/2024 6:45 EST Treatment [facility] [place] [address] [place], [place] [phone] Carlota Jin MD [address] [place] [phone] 12/18/2024 6:45 EST Treatment [facility] [place] [address] [place], [place] [phone] Carlota Jin MD 1 [facility], [facility] 2 [place] [phone] 12/20/2024 6:45 EST Treatment [facility] [place] [address] [place], [place] [phone] Carlota Jin MD 1 [facility], [facility] 2 [place] [phone] 12/22/2024 6:45 EST Treatment [facility] [address] [place], [place] [phone] Carlota Jin MD 1 [facility], [facility] [address] [place] [phone] 12/25/2024 6:45 EST Treatment [facility] [place] [address] [place], [place] [phone] Carlota Jin MD 1 [facility], [facility] [address] [place] [phone] 12/27/2024 6:45 EST Treatment [facility] [place] [address] [place], [place] [phone] Carlota Jin MD 1 [facility], [facility] 2 [place] [phone] 12/29/2024 6:45 EST Treatment [facility] [place] [address] [place] [address] Carlota Jin MD 1 [facility], [facility] 2 [place] [phone] 01/01/2025 6:45 EDT Treatment [facility] [place] [address] [place] [address] Carlota Jin MD 1 [facility], [facility] [address] [place] [phone] 01/03/2025 6:45 EDT Treatment [facility] [place] [address] [place] [address] Carlota Jin MD 1 [facility], [address] [phone] 01/05/2025 6:45 EDT Treatment [facility] [place] [address] [place] [address] Carlota Jin MD 1 [facility], [address] [phone] 01/08/2025 6:45 EDT Treatment [facility] [place] [address] [place] [address] Carlota Jin MD 1 [facility], [facility] [address] [place] [phone] 01/10/2025 6:45 EDT Treatment [facility] [place] [address] [place], [place] [phone] Carlota Jin MD 1 [facility], [facility] [address] [place] [phone] 01/12/2025 6:45 EDT Treatment [facility] [place] [address] [place], [place] [address] Carlota Jin MD 1 [facility], [facility] [address] [place] [phone] 01/15/2025 6:45 EDT Treatment [facility] [place] [address] [place], [place] [phone] Carlota Jin MD [address] [place] [address], [facility] [address] [place] [phone] 01/17/2025 6:45 EDT Treatment [facility] [place] [address] [place], [place] [address] Carlota Jin MD 1 [facility], [facility] 2 [place] [phone] 01/19/2025 6:45 EDT Treatment [facility] [place] [address] [place], [place] [address] Carlota Jin MD [address] [place] [address], [facility] [address] [place] [phone] 01/22/2025 6:45 EDT Treatment [facility] [place] [address] [place], [place] [phone] Carlota Jin MD 1 [facility], [facility] [address] [place] [phone] 01/24/2025 6:45 EDT Treatment [facility] [place] [address] [place], [place] [address] Carlota Jin MD 1 [facility], [address] [phone] 01/26/2025 6:45 EDT Treatment [facility] [place] [address] [place], [place] [phone] Carlota Jin MD 1 [facility], [address] [phone] 01/29/2025 6:45 EDT Treatment [facility] [place] [address] [place], [place] [id number] Carlota Jin MD [address] [facility], [address] [phone] 01/31/2025 6:45 EDT Treatment [facility] [place] [address] [place], [place] [phone] Carlota Jin MD [address] [phone] 02/02/2025 6:45 EDT Treatment [facility] [place] [address] [place], [place] [id number] Carlota Jin MD [address] [phone] 02/05/2025 6:45 EDT Treatment [facility] [place] [address] [place], [place] [id number] Carlota Jin MD 1 [facility], [address] [phone] 02/07/2025 6:45 EDT Treatment [facility] [place] [address] [place], [place] [phone] Carlota Jin MD 1 [facility], [facility] 2 [place] [phone] 02/09/2025 6:45 EDT Treatment [facility] [place] [address] [place], [place] [phone] Carlota Jin MD 1 [facility], [facility] 2 [place] [phone] 02/12/2025 6:45 EDT Treatment [facility] [place] [address] [place], [place] [phone] Carlota Jin MD 1 [facility], [address] [phone] 02/14/2025 6:45 EDT Treatment [facility] [place] [address] [place] [address] Carlota Jin MD 1 [facility], [facility] [address] [place] [phone] 02/16/2025 6:45 EDT Treatment [facility] [place] [address] [place], [place] [phone] Carlota Jin MD 1 [facility], [facility] 2 [place] [phone] 02/19/2025 6:45 EDT Treatment [facility] [address] [place], [place] [phone] Carlota Jin MD 1 [facility], [facility] 2 [place] [phone] 02/21/2025 6:45 EDT Treatment [facility] [address] [place], [place] [phone] Carlota Jin MD 1 [facility], [facility] [address] [place] [phone] documented as of this encounter Procedures Procedure Name Priority Date/Time Associated Diagnosis Comments HEMODIALYSIS Routine 11/05/2023 6:38 EST ESRD (end stage renal disease) ([facility]) documented in this encounter Visit Diagnoses Diagnosis ESRD (end stage renal disease) ([facility])- Primary End stage renal disease Anemia of chronic renal failure, unspecified CKD stage Hypoalbuminemia Other disorders of plasma protein metabolism Secondary hyperparathyroidism ([facility]) Secondary hyperparathyroidism (of renal origin) Cellulitis and abscess of foot, except toes documented in this encounter Administered Medications Inactive Administered Medications - up to 3 most recent administrations Medication Order MAR Action Action Date Dose Rate Site calcium carbonate (TUMS) tablet 500 mg (200 mg elemental calcium) 2 Tablet 2 Tablet, oral, ONCE IN DIALYSIS, 1 dose, On Wed11/05/23 at 0700, Routine, DialysisIndications:ESRD (end stage renal disease) ([facility]),Secondary hyperparathyroidism ([facility]) Given 11/05/2023 7:04 EST 2 Tablets epoetin ken (EPOGEN) 20,000 unit/2 mL injection 1,000 Units 1,000 Units, intravenous, ONCE IN DIALYSIS, 1 dose, On Wed11/05/23 at 0700, Routine, DialysisIndications:ESRD (end stage renal disease) ([facility]),Anemia of chronic renal failure, unspecified CKD stage Given 11/05/2023 6:54 EST 1,000 Units heparin injection 9,000 Units 9,000 Units, intravenous, ONCE IN DIALYSIS, 1 dose, On Wed11/05/23 at 0700, Routine, Dialysis, Now x1 bolus 4500 units to be given at the beginning of dialysis 1500 units/hour to be given over the course of dialysis (9000 units total). Stop 1 hour prior to end of treatment. To be administered per Policy [id number].Indications:ESRD (end stage renal disease) ([facility]) Given 11/05/2023 6:54 EST 9,000 Units LiquaCel liquid protein liquid 30 mL 30 mL, oral, ONCE IN DIALYSIS, 1 dose, On Wed11/05/23 at 0700, RoutineIndications:ESRD (end stage renal disease) ([facility]),Hypoalbuminemia Given 11/05/2023 7:05 EST 30 mL vancomycin 900 mg central line syringe 50 mg/mL 900 mg (rounded from 886 mg = 10 mg/kg ? 88.6 kg), central line, Administer over 60 Minutes, ONCE IN DIALYSIS, 1 dose, On Wed11/05/23 at 0700, Routine, Suspected Indication (Select all that apply): Purulent cellulitis/skin abscessIndications:Cellulitis and abscess of foot, except toes Given 11/05/2023 9:45 EST 900 mg documented in this encounter Orders Dialysis Count Last Ordered Date First Orde red Date HEMODIALYSIS 1 11/05/2023 documented in this encounter Care Teams Restaurant And Bar Manager Relationship Specialty Start Date End Date Ken Greer MD [address] [place] [address] PCP - General 07/07/23 documented as of this encounter
--- OUTSIDE RECORDS SUMMARY | 2024-12-05 12:15 | XMS_ITS | Encounter Summary ---
Author Organization [facility] Address [address] [place] [address] Care Team Providers Care Roller Coaster Designer Name Role Phone Ken Greer MD Primary Care Provider [phone] Reason for Visit * Reason Onset Date Comments Wound Infection 11/05/2023 Encounter Details Date Type Department Care Team (Late st Contact Info) Description 11/05/2023 Telephone [facility] [address], [place] [id number] Nergito Torres MD [address] [id number] Wound Infection Social History Tobacco Use Types Packs/Day Years [...] on file documented as of this encounter Miscellaneous Notes * Telephone Encounter - Negrito Torres MD - 11/05/2023 4528 EST Hospitalist Patient Transfer Request Requesting Facility: [facility] Date: 11/05/23 Time of Call: 15:35 History: Mr. Bruner is a 57-year-old male with past medical history including ESRD on MWF Hemodialysis, 2 diabetes mellitus who presented to the emergency department at [facility] with subjective fevers and worsening pain in his left lower extremity. On 10/31 he presented with left foot diabetic wound with CT imaging demonstrating an abscess which general surgery aspirated. Cultures from the footwound have grown Staph aureus and Klebsiella. Sensitivities are not available to me. He was discharged from the ED on 10/31 with plan to receive vancomycin with dialysis sessions. He did undergo hemodialysis this morning (11/05) and received a dose of vancomycin at dialysis but then presented to the ED. he is hemodynamically stable with stable CBC and no leukocytosis. CRP was 152 and ESR was 12. Blood cultures from 10/31 reportedly have had no growth (results not available to me). He received ciprofloxacin and Flagyl in the emergency department given a penicillin allergy. Other than subjective fevers, no other identifiable systemic symptoms. [facility] was contacted for transfer given the patient is established hemodialysis patient and will need to be at a dialysis center. Due to limitation of beds at [facility] and given that the patient received dialysis this morning with postdialysis stable electrolytes (and given his MWF dialysis schedule with need for dialysis on Wednesday), this was determined to not be an emergent transfer request was made for evaluation of local admission. [facility] was contacted and supported local admission at [facility] and transfer when abed becomes available. Plan: - Patient is accepted to Adult Hospital Medicine service. - Please call pager #[phone] Admitting Hospitalist when patient arrives to the floor. - Given that patient received dialysis this morning, he does not need emergent transfer for dialysis and recommendation is for local admission at [facility] and acceptance as Urgent, transfer in 24-48 hours when a bed becomes available - Recommend that admitting hospitalist team utilize Infectious Disease consultation (if not in house, via telemedicine or phone call to review antibiotic plan. If recommendation from ID is transitionto PO antibiotics, it can be determined by local hospitalist if patient can safely discharge from the hospital over the weekend. If he requires further inpatient needs (ie IV antibiotics, surgical evaluation, etc) and will remain in the hospital for over 48 hours, would plan for transfer due to dialysis needs - If any clinical deterioration (hemodynamic instability, severe electrolyte derrangements requiring emergent HD, etc), patient would change to emergent transfer and ICU/ED would need to be contacted Negrito Torres MD documented in this encounter Plan of Treatment Upcoming Encounters Date Type Department Care Team (Late st Contact Info) Description 12/06/2024 6:45 EST Treatment [facility] [address] [place], [place] [id number] Carlota Jin MD 1 [facility] [address] [place] [phone] 12/08/2024 6:45 EST Treatment [facility] [address] [place], [place] [id number] Carlota Jin MD [address] [phone] 12/11/2024 6:45 EST Treatment [facility] [address] [place], [place] [id number] Carlota Jin MD 1 [facility], [address] [phone] 12/13/2024 6:45 EST Treatment [facility] [address] [place], [place] [id number] Carlota Jin MD [address] [phone] 12/15/2024 6:45 EST Treatment [facility] [address] [place], [place] [id number] Carlota Jin MD 1 [facility], [address] [phone] 12/18/2024 6:45 EST Treatment [facility] [place] [address] [place], [place] [id number] Carlota Jin MD 1 [facility], [facility] [address] [place] [phone] 12/20/2024 6:45 EST Treatment [facility] [address] [place] [address] Carlota Jin MD 1 [facility] [address] [place] [phone] 12/22/2024 6:45 EST Treatment [facility] [address] [place] [address] Carlota Jin MD 1 [facility] [address] [place] [phone] 12/25/2024 6:45 EST Treatment [facility] [address] [place] [address] Carlota Jin MD 1 [facility] [address] [place] [phone] 12/27/2024 6:45 EST Treatment [facility] [address] [place], [place] [id number] Carlota Jin MD 1 [facility], [facility] [address] [place] [phone] 12/29/2024 6:45 EST Treatment [facility] [address] [place], [place] [address] Carlota Jin MD 1 [facility], [address] [phone] 01/01/2025 6:45 EDT Treatment [facility] [address] [place], [place] [address] [phone] Carlota Jin MD 1 [facility], [address] [phone] 01/03/2025 6:45 EDT Treatment [facility] [address] [place], [place] [address] Carlota Jin MD 1 [facility], [address] [phone] 01/05/2025 6:45 EDT Treatment [facility] [address] [place] [address] Carlota Jin MD 1 [facility], [address] [phone] 01/08/2025 6:45 EDT Treatment [facility] [address] [place], [place] [id number] Carlota Jin MD [address] [phone] 01/10/2025 6:45 EDT Treatment [facility] [address] [place], [place] [address] Carlota Jin MD 1 [facility], [address] [phone] 01/12/2025 6:45 EDT Treatment [facility] [address] [place], [place] [id number] Carlota Jin MD 1 [facility] [address] [place] [phone] 01/15/2025 6:45 EDT Treatment [facility] [place] [address] [place], [place] [id number] Carlota Jin MD 1 [facility], [address] [phone] 01/17/2025 6:45 EDT Treatment [facility] [address] [place], [place] [id number] Carlota Jin MD 1 [facility] [address] [place] [phone] 01/19/2025 6:45 EDT Treatment [facility] [place] [address] [place], [place] [id number] Carlota Jin MD 1 [facility] [address] [place] [phone] 01/22/2025 6:45 EDT Treatment [facility] [address] [place], [place] [id number] Carlota Jin MD 1 [facility] [address] [place] [phone] 01/24/2025 6:45 EDT Treatment [facility] [address] [place], [place] [id number] Carlota Jin MD 1 [facility] [address] [place] [phone] 01/26/2025 6:45 EDT Treatment [facility] [address] [place], [place] [id number] Carlota Jin MD 1 [facility], [address] [phone] 01/29/2025 6:45 EDT Treatment [facility] [place] [address] [place], [place] [id number] Carlota Jin MD 1 [facility], [address] [phone] 01/31/2025 6:45 EDT Treatment [facility] [address] [place], [place] [id number] Carlota Jin MD 1 [facility], [address] [phone] 02/02/2025 6:45 EDT Treatment [facility] [address] [place], [place] [address] Carlota Jin MD 1 [facility] [address] [place] [phone] 02/05/2025 6:45 EDT Treatment [facility] [place] [address] [place], [place] [address] Carlota Jni MD 1 [facility] [address] [place] [phone] 02/07/2025 6:45 EDT Treatment [facility] [address] [place], [place] [address] Carlota Jin MD 1 [facility] [address] [place] [phone] 02/09/2025 6:45 EDT Treatment [facility] [place] [address] [place], [place] [id number] Carlota Jin MD 1 [facility] [address] [place] [phone] 02/12/2025 6:45 EDT Treatment [facility] [place] [address] [place], [place] [address] Carlota Jin MD 1 [facility] [address] [place] [phone] 02/14/2025 6:45 EDT Treatment [facility] [place] [address] [place] [address] Carlota Jin MD 1 [facility] [address] [place] [phone] 02/16/2025 6:45 EDT Treatment [facility] [address] [place], [place] [address] Carlota Jin MD 1 [facility] [address] [place] [phone] 02/19/2025 6:45 EDT Treatment [facility] [place] [address] [place], [place] [id number] Carlota Jin MD 1 [facility] [address] [place] [phone] 02/21/2025 6:45 EDT Treatment [facility] [address] [place], [place] [id number] Carlota Jin MD 1 [facility] [address] [place] [phone] documented as of this encounter Visit Diagnoses Not on filedocumented in this encounter Care Teams Roller Coaster Designer Relationship Specialty Start Date End Date Ken Greer [place] [address] PCP - General 07/07/23 documented as of this encounter
--- OUTSIDE RECORDS SUMMARY | 2024-12-05 12:15 | XMS_ITS | Encounter Summary ---
Author Organization [facility] Address [address] [place] [address] Care Team Providers Care Paunch Trimmer Name Role Phone Ken Greer MD Primary Care Provider [phone] Encounter Details Date Type Department Care Team (Late st Contact Info) Description 11/05/2023 [facility] [place] [id number] Shelley Eden, RD [address] [place] [address] Social History Tobacco Use Types Packs/Day Years [...] Info) Description 12/06/2024 6:45 EST Treatment [facility] [place] [id number] Carlota Jin MD 1 [facility] [address] [place] [phone] 12/08/2024 6:45 EST Treatment [facility] [place] [address] [place], [place] [address] Carlota Jin MD 1 [facility] [address] [place] [phone] 12/11/2024 6:45 EST Treatment [facility] [place] [address] [place], [place] [address] Carlota Jin MD 1 [facility] [address] [place] [phone] 12/13/2024 6:45 EST Treatment [facility] [place] [address] [place], [place] [address] Carlota Jin MD 1 [facility] [address] [place] [phone] 12/15/2024 6:45 EST Treatment [facility] [place] [address] [place], [place] [address] Carlota Jin MD 1 [facility], [address] [phone] 12/18/2024 6:45 EST Treatment [facility] [address] [place], [place] [id number] Carlota Jin MD 1 [facility] [address] [place] [phone] 12/20/2024 6:45 EST Treatment [facility] [address] [place], [place] [address] Carlota Jin MD 1 [facility], [facility] [address] [place] [phone] 12/22/2024 6:45 EST Treatment [facility] [place] [address] [place], [place] [address] Carlota Jin MD 1 [facility], [facility] [address] [place] [phone] 12/25/2024 6:45 EST Treatment [facility] [place] [address] [place], [place] [address] Carlota Jin MD 1 [facility] [address] [place] [phone] 12/27/2024 6:45 EST Treatment [facility] [place] [address] [place], [place] [address] Carlota Jin MD 1 [facility], [facility] [address] [place] [phone] 12/29/2024 6:45 EST Treatment [facility] [address] [place], [place] [address] Carlota Jin MD 1 [facility], [facility] [address] [place] [phone] 01/01/2025 6:45 EDT Treatment [facility] [address] [place], [place] [id number] Carlota Jin MD 1 [facility], [facility] [address] [place] [phone] 01/03/2025 6:45 EDT Treatment [facility] [place] [address] [place], [place] [address] Carlota Jin MD 1 [facility] [address] [place] [phone] 01/05/2025 6:45 EDT Treatment [facility] [place] [address] [place], [place] [address] Carlota Jin MD 1 [facility] [address] [place] [phone] 01/08/2025 6:45 EDT Treatment [facility] [place] [address] [place], [place] [address] Carlota Jin MD 1 [facility] [address] [place] [phone] 01/10/2025 6:45 EDT Treatment [facility] [place] [address] [place], [place] [address] Carlota Jin MD 1 [facility] [address] [place] [phone] 01/12/2025 6:45 EDT Treatment [facility] [place] [address] [place], [place] [id number] Carlota Jin MD 1 [facility] [address] [place] [phone] 01/15/2025 6:45 EDT Treatment [facility] [place] [address] [place], [place] [address] Carlota Jin MD 1 [facility] [address] [place] [phone] 01/17/2025 6:45 EDT Treatment [facility] [place] [address] [place], [place] [address] Carlota Jin MD 1 [facility], [facility] [address] [place] [phone] 01/19/2025 6:45 EDT Treatment [facility] [place] [address] [place], [place] [address] Carlota Jin MD 1 [facility] [address] [place] [phone] 01/22/2025 6:45 EDT Treatment [facility] [place] [address] [place], [place] [address] Carlota Jin MD 1 [facility] [address] [place] [phone] 01/24/2025 6:45 EDT Treatment [facility] [place] [address] [place], [place] [address] Carlota Jin MD 1 [facility] [address] [place] [phone] 01/26/2025 6:45 EDT Treatment [facility] [place] [address] [place], [place] [address] Carlota Jin MD 1 [facility], [facility] [address] [place] [phone] 01/29/2025 6:45 EDT Treatment [facility] [place] [address] [place], [place] [address] Carlota Jni MD 1 [facility] [address] [place] [phone] 01/31/2025 6:45 EDT Treatment [facility] [place] [address] [place], [place] [address] Carlota Jin MD [address] [place] [address], [facility] [address] [place] [phone] 02/02/2025 6:45 EDT Treatment [facility] [place] [address] [place], [place] [address] Carlota Jin MD [address] [place] [address], [address] [phone] 02/05/2025 6:45 EDT Treatment [facility] [place] [address] [place], [place] [address] Carlota Jin MD 1 [facility] [address] [place] [phone] 02/07/2025 6:45 EDT Treatment [facility] [place] [address] [place], [place] [address] Carlota Jin MD 1 [facility] [address] [place] [phone] 02/09/2025 6:45 EDT Treatment [facility] [place] [address] [place], [place] [address] Carlota Jin MD 1 [facility], [facility] [address] [place] [phone] 02/12/2025 6:45 EDT Treatment [facility] [place] [address] [place], [place] [address] Carlota Jin MD 1 [facility], [facility] [address] [place] [phone] 02/14/2025 6:45 EDT Treatment [facility] [place] [address] [place], [place] [address] Carlota Jin MD 1 [facility] [address] [place] [phone] 02/16/2025 6:45 EDT Treatment [facility] [place] [address] [place] [address] Carlota Jin MD 1 [facility] [address] [place] [phone] 02/19/2025 6:45 EDT Treatment [facility] [place] [address] [place] [address] Carlota Jin MD 1 [facility] [address] [place] [phone] 02/21/2025 6:45 EDT Treatment [facility] [place] [address] [place], [place] [address] Carlota Jin MD 1 [facility] [address] [place] [phone] documented as of this encounter Visit Diagnoses Not on filedocumented in this encounter Care Teams Paunch Trimmer Relationship Specialty Start Date End Date Ken Greer MD [address] [facility] [address] PCP - General 07/07/23 documented as of this encounter
--- OUTSIDE RECORDS SUMMARY | 2024-12-05 12:16 | XMS_ITS | Encounter Summary ---
Author Organization [facility] Address [address] [place] [address] Care Team Providers Care Fleecer Name Role Phone Ken Greer MD Primary Care Provider [phone] Encounter Details Date Type Department Care Team (Latest Contact Info) Description 10/29/2023 6:45 EST Treatment [facility] [address] [place], [place] [id number] Carlota Jin MD 1 [facility], [address] [place] [address] ESRD (end stage renal disease) ([facility]) (Primary Dx); Anemia of chronic renal failure, unspecified CKD stage; Hypoalbuminemia; Secondary hyperparathyroidism ([facility]) Social History Tobacco Use [...] - Temperature - - Respiratory Rate 16 10/29/2023 0621 EST Oxygen Saturation - - Inhaled Oxygen Concentration - - Weight 90.9 kg (200 lb 6.4 oz) 10/29/[address] Height - - Body Mass Index 29.59 07/08/2023 0839 EDT documented in this encounter Miscellaneous Notes * Flowsheet Note - Marcela Cox RN - 10/29/2023 1300 EST 10/29/23 1102 Post-Hemodialysis Assessment Total Blood Processed (L) 89.51 Liters On Line Clearance: spKt/V 1.34 spKt/V Dialyzer Clearance Lightly streaked Treatment UFR (ml:kg:hr) 11.86 ml:kg:hr Final Critline Profile (%/hr) -1.98 Final Profile Profile A Critline refill Negative (34.2-34.0) Fluid Removed (L) 4.5 L Post-Dialysis Scale Weight 86.7 kg (191 lb 2.2 oz) Wheelchair Weight 0 kg (0 lb) Prosthesis Weight 0 kg (0 lb) Post-Treatment Weight (kg) 86.7 Treatment Weight Change (kg) 4.2 kg Day Target Weight (kg) 86.9 Post Sitting/Lying BP 111/66 Post Sitting/Lying pulse 68 Post Standing BP 109/63 Post Standing Pulse 73 Temp 36.7 ??C (98.1 ??F) Temp [...] Dialysis Comprehensive - Skye Gomez NP - 10/29/2023 0645 EST Images from the original note were not included. 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 associated with type 2diabetes mellitus [facility] ESRD (end stage renal disease) ([facility]) Essential (primary) hypertension Hearing loss Herniation of lumbar intervertebral disc with radiculopathy Hyperlipidemia Proteinuria Right sided numbness Secondary hyperparathyroidism ([facility]) TIA (transient ischemic attack) Type II or unspecified type diabetes mellitus with neurological manifestations, uncontrolled(250.62) Encounter for immunization Hypoalbuminemia Anemia of chronic renal failure Abnormal albumin Treatment Modality: Patient received information regarding treatment [...] No Listing On-Hold? No No Transplant Center [facility] Comments Patient does not meet transplant criteria due to daily smoking cigarettes pt referred to transplant @ [facility] Current Dialysis Prescription: Hemodialysis Therapy Plan In-Center Hemodialysis 3 times a week Prescribed Weight (Kg): 86.5 Treatments Per Week: 3 Dialyzer: OPTIFLUX 200NR Dialysate concentrate: Potassium 2 mEq/L Calcium 2.5 mEq/L Sodium NA+: Other Please specify: 136 Dialysate: Bicarb (mEq/L): 33 Dialysate Temperature (Centigrade): 36 BFR mL/min: 400 mL/min Dialysate Flow Rate (mL/min): 800 mL/min Duration of Treatment (hrs): 4 Hours Primary Access Site: AV Fistula Needle gauge: 15g 1 Dialysis - UF Profile: None Plan: Continue Previous Dialysis Prescription? Yes Fluid Management/Vital Sign Review Prescribed Weight: Prescribed Weight (Kg): 86.5 I reviewed the patient's volume status with Nursing: Yes Average Interdialytic Fluid Gains: 10/24/2023 6:39 10/24/2023 10:55 10/27/2023 6:27 10/27/2023 6:29 10/27/2023 10:48 10/29/2023 6:14 10/29/2023 6:21 InterDialytic +/- Gain/Loss 1.8 5.2 5.2 3.3 3.3 Wt (pre) 88.2 90.6 90.6 90.9 90.9 Wt (post) 85.4 87.6 Treatment UFR (ml:kg:hr) 8.16 ml:kg:hr 8.42 ml:kg:hr BP (pre) 141/78 116/61 116/61 123/62 123/62 BP (post) 173/85 133/71 133/71 142/79 142/79 Pulse (pre) 76 74 74 76 76 Pulse(post) 69 75 75 74 74 Resp (/min) 16 16 16 Volume and blood pressure have been addressed with the following changes: None Consistently able to achieve estimated dry weight? Yes Blood pressure is in range for patient? Yes Any adverse intradialytic symptoms? No Plan: Managed per protocol Physical Exam Constitutional NAD; PALA Respiratory: Unlabored Cardiac: Deferred Abdomen: Non distended Extremities: Trace edema Hospitalization Hospitalization in Previous 3 Months: No Emergency Room Visit in Previous 3 Months: No Access Management Current LDAs: Hemodialysis Arteriovenous Access 02/13/19 (Active) AV Fistula Present 10/29/23 0645 Site Assessment Clean;Dry;Intact;Bruit heard;Thrill felt 10/29/23 0645 Current State Active 10/29/23 0645 Status Accessed 10/29/23 0645 Is Maturing N 10/29/23 0645 Local Anesthetic None 10/29/23644 Site Prep Chlorhexidine 10/29/2345 Venous Needle Size 15 G 10/29/23 0645 Arterial/Generic Needle Size 15 G 10/29/23 0645 Accessed by: Rosa 10/29/2345 Access Attempts 2 10/29/23 0645 Dressing Status/Care Clean/Dry/Intact 10/08/23 0630 Patient has AVF/AVG as primary access: Yes [...] 1 Puff as directed., Disp: , Rfl: furosemide (LASIX) 20 mg tablet, Take 1 Tablet by mouth 2 times daily., Disp: , Rfl: LEVEMIR FLEXPEN 100 unit/mL (3 mL) injectable pen, , Disp: , Rfl: MULTIVITAMIN ORAL, Take by mouth., Disp: , Rfl: olmesartan (BENICAR) 5 mg tablet, TAKE ONE TABLET BY MOUTH EVERY DAY STOP HCTZ, Disp: , Rfl: pregabalin (LYRICA) 150 mg capsule, TAKE ONE CAPSULE BY MOUTH TWICE A DAY, MAXIMUM DAILY DOSE = 2 CAPSULES, Disp: , Rfl: VICTOZA 3-JULY 0.6 mg/0.1 mL (18 mg/3 mL) injectable pen, , Disp: , Rfl: Adjustment made to home medication: No Dialysis Medication Review Dialysis Plan Order Summary All Current Orders Interval Duration Due Hemodialysis Therapy Plan Dialysis Treatment In-Center Hemodialysis 3 times a week Week of 10/31/2023 Routine, ONE TIME Starting when released Prescribed Weight (Kg): 86.5 Treatments Per Week: 3 Dialyzer: OPTIFLUX 200NR Dialysate concentrate: Potassium 2 mEq/L Calcium 2.5 mEq/L Sodium NA+: Other Please specify: 136 Dialysate: Bicarb (mEq/L): 33 Dialysate Temperature (Centigrade): 36 BFR mL/min: 400 mL/min Dialysate Flow Rate (mL/min): 800 mL/min Duration of Treatment (hrs): 4 Hours Primary Access Site: AV Fistula Needle gauge: 15g 1 Dialysis - UF Profile: None Dialysis Last released: Wed10/29/2023 Oxygen Therapy (Age 2 yrs. to Adult) PRN PRN Routine, CONTINUOUS Starting when released Until Specified Initial Setting: As directed Device: Nasal cannula lpm: 2 Adjust flow rate and/or delivery device in order to maintain: 92% to 98% Last released: Never Medications acetaminophen (TYLENOL) tablet 650 mg PRN PRN 650 mg, oral, EVERY 4 HOURS PRN Starting when released Until Discontinued, Pain, Dialysis Last released: 10/17/2023 diphenhydrAMINE (BENADRYL) capsule 25 mg PRN PRN [...] of treatment. To be administered per Policy [id number]. Last released: Wed10/29/2023 sodium chloride 0.9 % BOLUS 100 mL PRN PRN 100 mL, intravenous, PRN Starting when released Until Discontinued, Other, hypotension or cramping,Dialysis Last released: Never Dialysis Weekly Labs Complete Blood Count Weekly: Wed11/03/2023 Routine, ONE TIME Starting when released, Blood, Venous, Blood Results Release to Patient (Note: Choosing Manual Release will only block results from tests performed at [facility] and does not apply for Miscellaneous Test Order): Immediate via [employer] Portal Dialysis Last released: Wed10/27/2023 Dialysis Monthly Labs Dialysis Iron (Includes Iron, IBC, and Ferritin) - Nephrology Use Only On the Wed of every 1 month Wed11/29/2023 Routine, ONE TIME Starting when released, Blood, Venous, Blood Results Release to Patient (Note: Choosing Manual Release will only block results from tests performed at [facility] and does not apply for Miscellaneous Test Order): Immediate via [employer] Portal Dialysis Last released: Wed10/27/2023 Dialysis Routine- Dialysis Use Only On the Wed of every 1 month Wed11/29/2023 Routine, ONE TIME Starting when released, Blood, Blood, Venous Results Release to Patient (Note: Choosing Manual Release will only block results from tests performed at [facility] and does not apply for Miscellaneous Test Order): Immediate via [employer] Portal Dialysis Last released: Wed10/27/2023 Postdialysis BUN with URR Calculation On the Wed of every 1 month Wed11/29/2023 Routine, ONE TIME Starting when released, Blood, Blood, Venous Results Release to Patient (Note: Choosing Manual Release will only block results from tests performed at [facility] and does not apply for Miscellaneous Test Order): Immediate via [facility] Portal Dialysis Last released: Wed10/27/2023 Dialysis Quarterly Labs PTH Intact On the 1st Mon of every 3 months Wed01/24/2024 Routine, ONE [...] Units 3 times a week Week of 10/31/2023 1,000 Units, intravenous, ONCE IN DIALYSIS Starting when released, Dialysis Last released: Wed10/29/2023 HEMODIALYSIS NUTRITIONAL SUPPLEMENTS Nutritional Supplements LiquaCel liquid protein liquid 30 mL Every visit Every visit 30 mL, oral, ONCE IN DIALYSIS Starting when released Last released: Wed10/29/2023 HEMODIALYSIS CKD MBD MEDS Medications calcium carbonate (TUMS) tablet 500 mg (200 mg elemental calcium) 2 Tablet Every visit Every visit 2 Tablet, oral, ONCE IN DIALYSIS Starting when released, Dialysis Last released: Wed10/29/2023 Adjustment made to dialysis medication: No Laboratory Results Dialysis Adequacy: spKt/V: 1.38 (Calculated from:; BUN Pre-Dialysis: 84 mg/dL at 10/27/2023 11:03; BUN Post-Dialysis: 26mg/dL at 10/27/2023 11:03; Pre-Treatment Weight (kg): 90.6 at 10/27/2023 6:29; Post-Treatment Weight (kg): 87.6 at 10/27/2023 10:48; Duration of Treatment (minutes): 244 minutes at 10/27/2023 10:48) Plan: Continue current dialysis prescription Anemia Management: Lab Results Component Value Date WBC 8.48 10/27/2023 HGB 11.1 (L) 10/27/2023 HGB 11.5 (L) 10/20/2023 HGB 11.1 (L) 10/13/2023 PLT 257 10/27/2023 FOLATE >24.0 10/27/2023 [id number] 607 10/27/2023 FERRITIN 564 (H) 10/27/2023 Current GEORGE/Dose: HEMODIALYSIS ANEMIA MEDS epoetin ken [...] Component Value Date LABALBU 3.1 (L) 10/27/2023 ALKPHOS 95 10/27/2023 PHOS 8.5 (H) 10/27/2023 CALCIUM 8.4 (L) 10/27/2023 CALCCA 9.1 10/27/2023 PTH 707 (H) 10/27/2023 Vitamin D: This patient does not have an active medication from one of the medication groupers. This patient does not have an active medication from one of the medication groupers. This patient does not have an active medication from one of the medication groupers. Plan: Managed per protocol Potassium Management: Lab Results Component Value Date K 5.9 (H) 10/27/2023 Prescribed Potassium Concentrate: HEMODIALYSIS Ordered at: 10/29/23 0621 Dialysate concentrate: Potassium 2 mEq/L Calcium 2.5 mEq/L 10/29/2023 6:21 Last Dialysis Prescription released on: Selected bath: Potassium 2 mEq/L Calcium 2.5 mEq/L This patient does not have an active medication from one of the medication groupers. Plan: Managed per protocol Nutrition: Lab Results Component Value Date LABALBU 3.1 (L) 10/27/2023 NA 140 10/27/2023 Protein Supplements: This patient does not have an active medication from one of the medication groupers. Plan: Managed per protocol Comments: Phos elevated, ca low-manage per protocol K+ elevated-pt received dietary counseling documented in this encounter Plan of Treatment Upcoming Encounters Date Type Department Care Team (Late st Contact Info) Description 12/06/2024 6:45 EST Treatment [facility] Dialysi [facility] [address] [place] [address] Carlota Jin MD 1 [facility], [address] [place] [address] 12/08/2024 6:45 EST Treatment [facility] Dialysi [facility] [address] [place] [address] [facility] MD 1 [facility] [address] [place] [phone] 12/11/2024 6:45 EST Treatment [facility] Dialysi - [place] [address] [place], [place] [address] Carlota Jin MD 1 [facility], [facility] [address] [place] [phone] 12/13/2024 6:45 EST Treatment [facility] - [place] [address] [place], [place] [id number] Carlota Jin MD 1 [facility], [facility] [address] [place] [phone] 12/15/2024 6:45 EST Treatment [facility] - [place] [address] [place], [place] [phone] Carlota Jin MD 1 [facility], [facility] [address] [place] [phone] 12/18/2024 6:45 EST Treatment [facility] Dialysi [facility] [address] [place] [address] Carlota Jin MD 1 [facility], [facility] [address] [place] [phone] 12/20/2024 6:45 EST Treatment [facility] [place] [address] [place], [place] [phone] Carlota Jin MD 1 [facility], [facility] [address] [place] [phone] 12/22/2024 6:45 EST Treatment [facility] - [place] [address] [place], [place] [phone] Carlota Jin MD 1 [facility], [facility] [address] [place] [phone] 12/25/2024 6:45 EST Treatment [facility] [place] [address] [place], [place] [id number] Carlota Jin MD 1 [facility], [facility] [address] [place] [phone] 12/27/2024 6:45 EST Treatment [facility] - [place] [address] [place], [place] [phone] Carlota Jin MD 1 [facility], [facility] [place] [phone] 12/29/2024 6:45 EST Treatment [facility] - [place] [address] [place], [place] [id number] Carlota Jin MD 1 [facility], [facility] [address] [place] [phone] 01/01/2025 6:45 EDT Treatment [facility] - [place] [address] [place], [place] [id number] Carlota Jin MD 1 [facility], [facility] 2 [place] [phone] 01/03/2025 6:45 EDT Treatment [facility] - [place] [address] [place], [place] [phone] Carlota Jin MD 1 [facility], [address] [place] [phone] 01/05/2025 6:45 EDT Treatment [facility] - [place] [address] [place], [place] [address] Carlota Jin MD 1 [facility], [facility] 2 [place] [phone] 01/08/2025 6:45 EDT Treatment [facility] - [place] [address] [place], [place] [phone] Carlota Jin MD 1 [facility], [facility] 2 [place] [phone] 01/10/2025 6:45 EDT Treatment [facility] - [place] [address] [place] [address] Carlota Jin MD 1 [facility], [facility] 2 [place] [phone] 01/12/2025 6:45 EDT Treatment [facility] [address] [place] [address] Carlota Jin MD 1 [facility], [facility] 2 [place] [phone] 01/15/2025 6:45 EDT Treatment [facility] Dialysi [facility] [address] [place], [place] [phone] Carlota Jin MD 1 [facility], [facility] 2 [place] [phone] 01/17/2025 6:45 EDT Treatment [facility] - [place] [address] [place], [place] [phone] Carlota Jin MD 1 [facility], [facility] [address] [place] [phone] 01/19/2025 6:45 EDT Treatment [facility] - [place] [address] [place], [place] [phone] Carlota Jin MD 1 [facility], [facility] 2 [place] [phone] 01/22/2025 6:45 EDT Treatment [facility] - [place] [address] [place], [place] [phone] Carlota Jin MD [address] [place] [address], [facility] 2 [place] [phone] 01/24/2025 6:45 EDT Treatment [facility] - [place] [address] [place], [place] [phone] Carlota Jin MD 1 [facility], [facility] 2 [place] [phone] 01/26/2025 6:45 EDT Treatment [facility] - [place] [address] [place], [place] [phone] Carlota Jin MD 1 [facility], [facility] 2 [place] [phone] 01/29/2025 6:45 EDT Treatment [facility] - [place] [address] [place], [place] [phone] Carlota Jin MD 1 [facility], [facility] 2 [place] [phone] 01/31/2025 6:45 EDT Treatment [facility] - [place] [address] [place], [place] [phone] Carlota Jin MD 1 [facility], [facility] 2 [place] [phone] 02/02/2025 6:45 EDT Treatment [facility] - [place] [address] [place], [place] [phone] Carlota Jin MD 1 [facility], [address] [phone] 02/05/2025 6:45 EDT Treatment [facility] - [place] [address] [place], [place] [phone] Carlota Jin MD 1 [facility], [address] [phone] 02/07/2025 6:45 EDT Treatment [facility] - [place] [address] [place], [place] [phone] Carlota Jin MD 1 [facility], [facility] 2 [place] [phone] 02/09/2025 6:45 EDT Treatment [facility] - [place] [address] [place], [place] [phone] Carlota Jin MD 1 [facility], [facility] 2 [place] [phone] 02/12/2025 6:45 EDT Treatment [facility] - [place] [address] [place], [place] [phone] Carlota Jin MD [address] [phone] 02/14/2025 6:45 EDT Treatment [facility] - [place] [address] [place], [place] [phone] Carlota Jin MD [address] [phone] 02/16/2025 6:45 EDT Treatment [facility] - [place] [address] [place], [place] [phone] Carlota Jin MD [address] [phone] 02/19/2025 6:45 EDT Treatment [facility] - [place] [address] [place], [place] [phone] Carlota Jin MD [address] [phone] 02/21/2025 6:45 EDT Treatment [facility] [address] [place], [place] [phone] Carlota Jin MD [address] [phone] documented as of this encounter Procedures Procedure Name Priority Date/Time Associated Diagnosis Comments HEMODIALYSIS Routine 10/29/2023 6:21 EST ESRD (end stage renal disease) ([facility]) documented in this encounter Visit Diagnoses Diagnosis ESRD (end stage renal disease) ([facility])- Primary End stage renal disease Anemia of chronic renal failure, unspecified CKD stage Hypoalbuminemia Other disorders of plasma protein metabolism Secondary hyperparathyroidism ([facility]) Secondary hyperparathyroidism (of renal origin) documented in this encounter Administered Medications Inactive Administered Medications - up to 3 most recent administrations Medication Order MAR Action Action Date Dose Rate Site calcium carbonate (TUMS) tablet 500 mg (200 mg elemental calcium) 2 Tablet 2 Tablet, oral, ONCE IN DIALYSIS, 1 dose, On Wed10/29/23 at 0645, Routine, DialysisIndications:ESRD (end stage renal disease) ([facility]),Secondary hyperparathyroidism ([facility]) Given 10/29/2023 6:49 EST 2 Tablets epoetin ken (EPOGEN) 20,000 unit/2 mL injection 1,000 Units 1,000 Units, intravenous, ONCE IN DIALYSIS, 1 dose, On Wed10/29/23 at 0645, Routine, DialysisIndications:ESRD (end stage renal disease) ([facility]),Anemia of chronic renal failure, unspecified CKD stage Given 10/29/2023 6:49 EST 1,000 Units heparin injection 9,000 Units 9,000 Units, intravenous, ONCE IN DIALYSIS, 1 dose, On Wed10/29/23 at 0645, Routine, Dialysis, Now x1 bolus 4500 units to be given at the beginning of dialysis 1500 units/hour to be given over the course of dialysis (9000 units total). Stop 1 hour prior to end of treatment. To be administered per Policy [id number].Indications:ESRD (end stage renal disease) ([facility]) Given 10/29/2023 6:49 EST 9,000 Units LiquaCel liquid protein liquid 30 mL 30 mL, oral, ONCE IN DIALYSIS, 1 dose, On Wed10/29/23 at 0645, RoutineIndications:ESRD (end stage renal disease) ([facility]),Hypoalbuminemia Given 10/29/2023 6:49 EST 30 mL documented in this encounter Orders Dialysis Count Last Ordered Date First Orde red Date HEMODIALYSIS 1 10/29/2023 documented in this encounter Care Teams Fleecer Relationship Specialty Start Date End Date Ken Greer MD [address] [place] [address] PCP - General 07/07/23 documented as of this encounter
--- OUTSIDE RECORDS SUMMARY | 2024-12-05 12:16 | XMS_ITS | Encounter Summary ---
Author Organization [facility] Address [address] [place] [address] Care Team Providers Care Relief Docking Master Name Role Phone Ken Greer MD Primary Care Provider Encounter Details Date Type Department Care Team (Latest Contact Info) Description 10/15/2023 6:45 EST Treatment [facility] [address] [place], [place] [phone] Carlota Jin MD 1 [facility], Level [address] [place] [address] ESRD (end stage renal disease) ([facility]) (Primary Dx); Anemia of chronic renal failure, unspecified CKD stage; Hypoalbuminemia; Secondary hyperparathyroidism ([facility]) Social History Tobacco Use Types Packs/Day [...] - Temperature - - Respiratory Rate 16 10/15/2023 0636 EST Oxygen Saturation - - Inhaled Oxygen Concentration - - Weight 89.5 kg (197 lb 5 oz) 10/15/2023 0634 EST Height - - Body Mass Index 29.14 07/08/2023 0839 EDT documented in this encounter Miscellaneous Notes * Flowsheet Note - Marcela Cox RN - 10/15/2023 1316 EST 10/15/23 1053 Post-Hemodialysis Assessment Total Blood Processed (L) 89.66 Liters On Line Clearance: spKt/V 1.41 spKt/V Dialyzer Clearance Lightly streaked Treatment UFR (ml:kg:hr) 8.63 ml:kg:hr Final Critline Profile (%/hr) 0.12 Final Profile Profile A Critline refill Not done Fluid Removed (L) 3.5 L Post-Dialysis Scale Weight 86.5 kg (190 lb 11.2 oz) Wheelchair Weight 0 kg (0 lb) Prosthesis Weight 0 kg (0 lb) Post-Treatment Weight (kg) 86.5 Treatment Weight Change (kg) 3 kg Day Target Weight (kg) 86.5 Post Sitting/Lying BP 116/63 Post Sitting/Lying pulse 67 Post Standing BP 105/55 Post Standing Pulse 71 Temp 36.4 ??C (97.5 ??F) Temp src Temporal Post access assessment AVF/AFG Hemostasis achieved Yes Note 10 minute hold Orientation Alert and Oriented x3 Yes [...] Treatment [facility] [place] [address] [place] [phone] Carlota Jin MD 1 [facility], [address] [place] [address] 12/08/2024 6:45 EST Treatment [facility] [place] [address] [place], [place] [phone] Carlota Jin MD 1 [facility], [facility] 2 [place] [phone] 12/11/2024 6:45 EST Treatment [facility] [place] [address] [place], [place] [phone] Carlota Jni MD 1 [facility], [facility] 2 [place] [phone] 12/13/2024 6:45 EST Treatment [facility] [place] [address] [place], [place] [phone] Carlota Jin MD 1 [facility], [facility] 2 [place] [phone] 12/15/2024 6:45 EST Treatment [facility] [place] [address] [place], [place] [phone] Carlota Jin MD 1 [facility], [facility] 2 [place] [phone] 12/18/2024 6:45 EST Treatment [facility] [place] [address] [place], [place] [phone] Carlota Jin MD 1 [facility], [facility] 2 [place] [phone] 12/20/2024 6:45 EST Treatment [facility] [place] [address] [place], [place] [phone] Carlota Jin MD 1 [facility], [facility] 2 [place] [phone] 12/22/2024 6:45 EST Treatment [facility] [place] [address] [place], [place] [phone] Carlota Jin MD 1 [facility], [facility] 2 [place] [phone] 12/25/2024 6:45 EST Treatment [facility] [place] [address] [place], [place] [phone] Carlota Jin MD 1 [facility], [facility] 2 [place] [phone] 12/27/2024 6:45 EST Treatment [facility] [place] [address] [place], [place] [phone] Carlota Jin MD 1 [facility], [address] [phone] 12/29/2024 6:45 EST Treatment [facility] [address] [place] [address] Carlota Jin MD 1 [facility], [facility] 2 [place] [phone] 01/01/2025 6:45 EDT Treatment [facility] [address] [place], [place] [phone] Carlota Jin MD 1 [facility], [facility] 2 [place] [phone] 01/03/2025 6:45 EDT Treatment [facility] [place] [address] [place], [place] [phone] Carlota Jin MD 1 [facility], [address] [phone] 01/05/2025 6:45 EDT Treatment [facility] [place] [address] [place], [place] [phone] Carlota Jin MD 1 [facility], [address] [phone] 01/08/2025 6:45 EDT Treatment [facility] [place] [address] [place], [place] [phone] Carlota Jin MD 1 [facility], [address] [phone] 01/10/2025 6:45 EDT Treatment [facility] [place] [address] [place], [place] [phone] Carlota Jin MD 1 [facility], [address] [phone] 01/12/2025 6:45 EDT Treatment [facility] [place] [address] [place], [place] [phone] Carlota Jin MD [address] [place] [address], [address] [phone] 01/15/2025 6:45 EDT Treatment [facility] [place] [address] [place], [place] [phone] Carltoa Jin MD 1 [facility], Level [address] [place] [phone] 01/17/2025 6:45 EDT Treatment [facility] [place] [address] [place], [place] [address] Carlota Jin MD 1 [facility], [facility] 2 [place] [phone] 01/19/2025 6:45 EDT Treatment [facility] [place] [address] [place], [place] [phone] Carlota Jin MD 1 [facility], [facility] 2 [place] [phone] 01/22/2025 6:45 EDT Treatment [facility] [place] [address] [place], [place] [phone] Carlota Jin MD 1 [facility], [facility] 2 [place] [phone] 01/24/2025 6:45 EDT Treatment [facility] [address] [place], [place] [phone] Carlota Jin MD 1 [facility], [facility] 2 [place] [phone] 01/26/2025 6:45 EDT Treatment [facility] [address] [place], [place] [phone] Carlota Jin MD 1 [facility], [facility] 2 [place] [phone] 01/29/2025 6:45 EDT Treatment [facility] [place] [address] [place], [place] [phone] Carlota Jin MD 1 [facility], [facility] 2 [place] [phone] 01/31/2025 6:45 EDT Treatment [facility] [place] [address] [place], [place] [phone] Carlota Jin MD 1 [facility], [facility] 2 [place] [phone] 02/02/2025 6:45 EDT Treatment [facility] [place] [address] [place], [place] [phone] Carlota Jin MD 1 [facility], [facility] 2 [place] [phone] 02/05/2025 6:45 EDT Treatment [facility] [place] [address] [place], [place] [phone] Carlota Jin MD 1 [facility], [facility] 2 [place] [phone] 02/07/2025 6:45 EDT Treatment [facility] [place] [address] [place], [place] [phone] Carlota Jin MD 1 [facility], [facility] 2 [place] [phone] 02/09/2025 6:45 EDT Treatment [facility] [place] [address] [place], [place] [phone] Carlota Jin MD 1 [facility], [facility] 2 [place] [phone] 02/12/2025 6:45 EDT Treatment [facility] [place] [address] [place], [place] [phone] Carlota Jin MD 1 [facility], [facility] 2 [place] [phone] 02/14/2025 6:45 EDT Treatment [facility] [place] [address] [place] [address] Carlota Jin MD 1 [facility], [address] [phone] 02/16/2025 6:45 EDT Treatment [facility] [place] [address] [place], [place] [phone] Carlota Jin MD 1 [facility], [address] [phone] 02/19/2025 6:45 EDT Treatment [facility] [place] [address] [place] [address] Carlota Jin MD 1 [facility], [facility] 2 [place] [phone] 02/21/2025 6:45 EDT Treatment [facility] [place] [address] [place], [place] [phone] Carlota Jin MD 1 [facility], [facility] 2 [place] [phone] documented as of this encounter Procedures Procedure Name Priority Date/Time Associated Diagnosis Comments HEMODIALYSIS Routine 10/15/2023 6:36 EST ESRD (end stage renal disease) ([facility]) documented in this encounter Visit Diagnoses Diagnosis ESRD (end stage renal disease) ([facility])- Primary End stage renal disease Anemia of chronic renal failure, unspecified CKD stage Hypoalbuminemia Other disorders of plasma protein metabolism Secondary hyperparathyroidism ([facility]) Secondary hyperparathyroidism (of renal origin) documented in this encounter Administered Medications Inactive Administered Medications - up to 3 most recent administrations Medication Order MAR Action Action Date Dose Rate Site calcium carbonate (TUMS) tablet 500 mg (200 mg elemental calcium) 2 Tablet 2 Tablet, oral, ONCE IN DIALYSIS, 1 dose, On Wed10/15/23 at 0700, Routine, DialysisIndications:ESRD (end stage renal disease) ([facility]),Secondary hyperparathyroidism ([facility]) Given 10/15/2023 7:21 EST 2 Tablets epoetin ken (EPOGEN) 20,000 unit/2 mL injection 1,500 Units 1,500 Units, intravenous, ONCE IN DIALYSIS, 1 dose, On Wed10/15/23 at 0700, Routine, DialysisIndications:ESRD (end stage renal disease) ([facility]),Anemia of chronic renal failure, unspecified CKD stage Given 10/15/2023 7:21 EST 1,500 Units heparin injection 9,000 Units 9,000 Units, intravenous, ONCE IN DIALYSIS, 1 dose, On Wed10/15/23 at 0700, Routine, Dialysis, Now x1 bolus 4500 units to be given at the beginning of dialysis 1500 units/hour to be given over the course of dialysis (9000 units total). Stop 1 hour prior to end of treatment. To be administered per Policy [id number].Indications:ESRD (end stage renal disease) ([facility]) Given 10/15/2023 7:20 EST 9,000 Units LiquaCel liquid protein liquid 30 mL 30 mL, oral, ONCE IN DIALYSIS, 1 dose, On Wed10/15/23 at 0700, RoutineIndications:ESRD (end stage renal disease) ([facility]),Hypoalbuminemia Given 10/15/2023 7:21 EST 30 mL documented in this encounter Orders Dialysis Count Last Ordered Date First Orde red Date HEMODIALYSIS 1 10/15/2023 documented in this encounter Care Teams Relief Docking Master Relationship Specialty Start Date End Date Ken Greer MD [facility] [place] [address] PCP - General 07/07/23 documented as of this encounter
--- OUTSIDE RECORDS SUMMARY | 2024-12-05 12:16 | XMS_ITS | Encounter Summary ---
Author Organization [facility] Address [address] [place] [address] Care Team Providers Care Daycare Manager Name Role Phone Ken Greer MD Primary Care Provider [phone] Encounter Details Date Type Department Care Team (Latest Contact Info) Description 11/01/2023 6:45 EST Treatment [facility] [address] [place], [place] [id number] Carlota Jin MD 1 [facility], Level 2 [place] [address] ESRD (end stage renal disease) ([facility]) (Primary Dx); Anemia of chronic renal failure, unspecified CKD stage; Encounter for immunization; Hypoalbuminemia; Secondary hyperparathyroidism ([facility]) Social History Tobacco Use Types Packs/Day Years [...] - Temperature - - Respiratory Rate 16 11/01/2023 0636 EST Oxygen Saturation - - Inhaled Oxygen Concentration - - Weight 90 kg (198 lb 6.6 oz) 11/01/2023 0630 EST Height - - Body Mass Index 29.3 07/08/2023 0839 EDT documented in this encounter Progress Notes * Marcela Cox RN - 11/01/2023 0645 EST Pt called post tx today inquiring about whether or not he received IV abx during tx today. Pt then read me his d/c summary from [facility] ED from yesterday which stated he was given x1 dose of IV abx in ERand for subsequent doses he should f/u with dialysis provider for further abx. Informed pt that we were not made aware of this by [facility] ED, or by pt so would reach out to CAMPUS COORDINATOR for further orders startingon wed. CAMPUS COORDINATOR instructed further orders and orders entered by nurse front desk manager. documented in this encounter Miscellaneous Notes * Flowsheet Note - Marcela Cox RN - 11/01/2023 1453 EST 11/01/23 1053 Post-Hemodialysis Assessment Total Blood Processed (L) 89.67 Liters On Line Clearance: spKt/V 1.36 spKt/V Dialyzer Clearance Lightly streaked Treatment UFR (ml:kg:hr) 10.67 ml:kg:hr Critline refill Not done Fluid Removed (L) 4 L Post-Dialysis Scale Weight 86.3 kg (190 lb 4.1 oz) Wheelchair Weight 0 kg (0 lb) Prosthesis Weight 0 kg (0 lb) Post-Treatment Weight (kg) 86.3 Treatment Weight Change (kg) 3.7 kg Day Target Weight (kg) 86.5 Post Sitting/Lying BP 121/67 Post Sitting/Lying pulse 72 Post Standing BP 102/56 Post Standing Pulse 77 Temp 36.3 ??C (97.3 ??F) Temp src [...] Comments no concerns voiced post tx. * Flowsheet Note - Marcela Cox RN - 11/01/2023 1450 EST 11/01/23 1053 Post-Hemodialysis Assessment Total Blood Processed (L) 89.67 Liters On Line Clearance: spKt/V 1.36 spKt/V Dialyzer Clearance Lightly streaked Treatment UFR (ml:kg:hr) 10.67 ml:kg:hr Critline refill Not done Fluid Removed (L) 4 L Post-Dialysis Scale Weight 86.3 kg (190 lb 4.1 oz) Wheelchair Weight 0 kg (0 lb) Prosthesis Weight 0 kg (0 lb) Post-Treatment Weight (kg) 86.3 Treatment Weight Change (kg) 3.7 kg Day Target Weight (kg) 86.5 Post Sitting/Lying BP 121/67 Post Sitting/Lying pulse 72 Post Standing BP 102/56 Post Standing Pulse 77 Temp 36.3 ??C (97.3 ??F) Temp src [...] [facility] [place] [address] [place], [place] [address] Carlota Jin MD 1 [facility], Level 2 [place] [address] 12/08/2024 6:45 EST Treatment [facility] [address] [place], [place] [address] Carlota Jin MD 1 [facility], Level 2 [place] [phone] 12/11/2024 6:45 EST Treatment [facility] [place] [address] [place], [place] [address] Carlota Jin MD 1 [facility], [facility] 2 [place] [phone] 12/13/2024 6:45 EST Treatment [facility] [place] [address] [place], [place] [id number] Carlota Jin MD 1 [facility], [facility] 2 [place] [phone] 12/15/2024 6:45 EST Treatment [facility] [place] [address] [place], [place] [id number] Carlota Jin MD 1 [facility], [facility] 2 [place] [phone] 12/18/2024 6:45 EST Treatment [facility] [place] [address] [place] [address] Carlota Jin MD 1 [facility], [facility] 2 [place] [phone] 12/20/2024 6:45 EST Treatment [facility] [place] [address] [place], [place] [address] Carlota Jin MD 1 [facility], [facility] 2 [place] [phone] 12/22/2024 6:45 EST Treatment [facility] [place] [address] [place], [place] [id number] Carlota Jin MD 1 [facility], [facility] 2 [place] [phone] 12/25/2024 6:45 EST Treatment [facility] [place] [address] [place], [place] [address] Carlota Jin MD 1 [facility], [facility] 2 [place] [phone] 12/27/2024 6:45 EST Treatment [facility] [place] [address] [place], [place] [address] Carlota Jin MD 1 [facility], [facility] 2 [place] [phone] 12/29/2024 6:45 EST Treatment [facility] [place] [address] [place], [place] [address] Carlota Jin MD 1 [facility], [facility] 2 [place] [phone] 01/01/2025 6:45 EDT Treatment [facility] [place] [address] [place], [place] [id number] Carlota Jin MD 1 [facility], [facility] 2 [place] [phone] 01/03/2025 6:45 EDT Treatment [facility] [place] [address] [place], [place] [id number] Carlota Jin MD 1 [facility], [facility] 2 [place] [phone] 01/05/2025 6:45 EDT Treatment [facility] [place] [address] [place], [place] [address] Carlota Jin MD 1 [facility], [facility] 2 [place] [phone] 01/08/2025 6:45 EDT Treatment [facility] [place] [address] [place], [place] [address] Carlota Jin MD 1 [facility], [facility] 2 [place] [phone] 01/10/2025 6:45 EDT Treatment [facility] [place] [address] [place] [address] Carlota Jin MD 1 [facility], [facility] 2 [place] [phone] 01/12/2025 6:45 EDT Treatment [facility] [place] [address] [place] [address] Carlota Jin MD 1 [facility], [facility] 2 [place] [phone] 01/15/2025 6:45 EDT Treatment [facility] [place] [address] [place], [place] [id number] Carlota Jin MD 1 [facility], [facility] 2 [place] [phone] 01/17/2025 6:45 EDT Treatment [facility] [place] [address] [place], [place] [address] Carlota Jin MD 1 [facility], [facility] 2 [place] [phone] 01/19/2025 6:45 EDT Treatment [facility] [place] [address] [place], [place] [id number] Carlota Jin MD 1 [facility], [facility] 2 [place] [phone] 01/22/2025 6:45 EDT Treatment [facility] [place] [address] [place] [address] Carlota Jin MD 1 [facility], [address] [phone] 01/24/2025 6:45 EDT Treatment [facility] [place] [address] [place], [place] [id number] Carlota Jin MD 1 [facility], [facility] 2 [place] [phone] 01/26/2025 6:45 EDT Treatment [facility] [place] [address] [place], [place] [id number] Carlota Jin MD 1 [facility], [facility] 2 [place] [phone] 01/29/2025 6:45 EDT Treatment [facility] [place] [address] [place] [address] Carlota Jin MD 1 [facility], [facility] 2 [place] [phone] 01/31/2025 6:45 EDT Treatment [facility] [place] [address] [place] [address] Carlota Jin MD 1 [facility], [facility] 2 [place] [phone] 02/02/2025 6:45 EDT Treatment [facility] [place] [address] [place] [address] Carlota Jin MD 1 [facility], [address] [phone] 02/05/2025 6:45 EDT Treatment [facility] [place] [address] [place] [address] Carlota Jin MD 1 [facility], [address] [phone] 02/07/2025 6:45 EDT Treatment [facility] [place] [address] [place] [address] Carlota Jin MD 1 [facility], [facility] 2 [place] [phone] 02/09/2025 6:45 EDT Treatment [facility] [place] [address] [place], [place] [id number] Carlota Jin MD 1 [facility], [facility] 2 [place] [phone] 02/12/2025 6:45 EDT Treatment [facility] [place] [address] [place], [place] [id number] Carlota Jin MD 1 [facility], [address] [phone] 02/14/2025 6:45 EDT Treatment [facility] [address] [place], [place] [id number] Carlota Jin MD [address] [place] [address], [address] [phone] 02/16/2025 6:45 EDT Treatment [facility] [address] [place], [place] [id number] Carlota Jin MD 1 [facility], [address] [phone] 02/19/2025 6:45 EDT Treatment [facility] [place] [address] [place], [place] [address] Carlota Jin MD [address] [place] [address], [address] [phone] 02/21/2025 6:45 EDT Treatment [facility] [address] [place], [place] [id number] Carlota Jin MD 1 [facility], [address] [phone] documented as of this encounter Procedures Procedure Name Priority Date/Time Associated Diagnosis Comments HEMODIALYSIS Routine 11/01/2023 6:36 EST ESRD (end stage renal disease) ([facility]) documented in this encounter Visit Diagnoses Diagnosis ESRD (end stage renal disease) ([facility])- Primary End stage renal disease Anemia of chronic renal failure, unspecified CKD stage Encounter for immunization Need for other specified [...] oral, ONCE IN DIALYSIS, 1 dose, On Wed11/01/23 at 0700, Routine, DialysisIndications:ESRD (end stage renal disease) ([facility]),Secondary hyperparathyroidism ([facility]) Given 11/01/2023 6:59 EST 2 Tablets epoetin ken (EPOGEN) 20,000 unit/2 mL injection 1,000 Units 1,000 Units, intravenous, ONCE IN DIALYSIS, 1 dose, On Wed11/01/23 at 0700, Routine, DialysisIndications:ESRD (end stage renal disease) ([facility]),Anemia of chronic renal failure, unspecified CKD stage Given 11/01/2023 6:59 EST 1,000 Units heparin injection 9,000 Units 9,000 Units, intravenous, ONCE IN DIALYSIS, 1 dose, On Wed11/01/23 at 0700, Routine, Dialysis, Now x1 bolus 4500 units to be given at the beginning of dialysis 1500 units/hour to be given over the course of dialysis (9000 units total). Stop 1 hour prior to end of treatment. To be administered per Policy [id number].Indications:ESRD (end stage renal disease) ([facility]) Given 11/01/2023 6:59 EST 9,000 Units LiquaCel liquid protein liquid 30 mL 30 mL, oral, ONCE IN DIALYSIS, 1 dose, On Wed11/01/23 at 0700, RoutineIndications:ESRD (end stage renal disease) ([facility]),Hypoalbuminemia Given 11/01/2023 6:59 EST 30 mL documented in this encounter Orders Medications Ordered That Davide ht Not Have Been Administered Count Last Ordered Date First Ordered Date iron sucrose (VENOFER) injection 200 mg 1 0 11/01/2023 Dialysis Count Last Ordered Date First Orde red Date HEMODIALYSIS 1 11/01/2023 documented in this encounter Care Teams Daycare Manager Relationship Specialty Start Date End Date Ken Greer MD [address] [facility] [place] [address] PCP - General 07/07/23 documented as of this encounter
--- OUTSIDE RECORDS SUMMARY | 2024-12-05 12:16 | XMS_ITS | Encounter Summary ---
Author Organization [facility] Address [address] [place] [address] Care Team Providers Care Brim Stitcher Name Role Phone Ken Greer MD Primary Care Provider [phone] Encounter Details Date Type Department Care Team (Late st Contact Info) Description 10/27/[address] [facility] [address] [place] [address] Alexa Estrada, [facility] [address] [place] [address] Social History Tobacco Use Types Packs/Day Years [...] on file documented as of this encounter Progress Notes * Alexa Estrada LICSW - 10/27/2023 1246 EST Cardiology Physician Assistant's Monthly Assessment UPDATE: SW met with pt after dialysis. Pt provided SW with his updated car registration for the [employer] he receives for mileage reimbursement. SW sent to the [facility] and will continue to provide support to thept around this. No other unmet needs at this time. Current Living Situation: Lives with family and Lives with friends Lives with family Pt lives with his , Hoda, in their apartment in [place]. He rents the apartment and has a [...] Hospitalization Change in physical or medical status: No Hospitalization in Previous 3 Months: No Emergency Room Visit in Previous 3 Months: No Mental Health: Change in cognitive function? No Current or past mental health issues including feelings of anxiety or depression: No Previous mental health diagnosis? No Past or current suicidal thinking/attempt? 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 2 [place] [phone] 12/08/2024 6:45 EST Treatment [facility] [place] [address] [place], [place] [id number] Carlota Jin MD 1 [facility], [facility] 2 [place] [phone] 12/11/2024 6:45 EST Treatment [facility] [address] [place], [place] [phone] Carlota Jin MD 1 [facility], [address] [phone] 12/13/2024 6:45 EST Treatment [facility] [place] [address] [place], [place] [phone] Carlota Jin MD 1 [facility], [facility] 2 [place] [phone] 12/15/2024 6:45 EST Treatment [facility] [address] [place], [place] [id number] Carlota Jin MD 1 [facility], [facility] 2 [place] [phone] 12/18/2024 6:45 EST Treatment [facility] [address] [place], [place] [id number] Carlota Jin MD 1 [facility], [facility] 2 [place] [phone] 12/20/2024 6:45 EST Treatment [facility] [place] [address] [place] [address] Carlota Jin MD 1 [facility], [facility] 2 [place] [phone] 12/22/2024 6:45 EST Treatment [facility] [place] [address] [place] [address] Carlota Jin MD 1 [facility], [facility] 2 [place] [phone] 12/25/2024 6:45 EST Treatment [facility] [place] [address] [place] [address] Carlota Jin MD 1 [facility], [facility] 2 [place] [phone] 12/27/2024 6:45 EST Treatment [facility] [place] [address] [place] [address] Carlota Jin MD 1 [facility], [facility] 2 [place] [phone] 12/29/2024 6:45 EST Treatment [facility] [place] [address] [place], [place] [id number] Carlota Jin MD 1 [facility], [facility] 2 [place] [phone] 01/01/2025 6:45 EDT Treatment [facility] [place] [address] [place], [place] [address] Carlota Jin MD 1 [facility], [facility] 2 [place] [phone] 01/03/2025 6:45 EDT Treatment [facility] [place] [address] [place], [place] [id number] Carlota Jin MD [address] [place] [address], [facility] 2 [place] [phone] 01/05/2025 6:45 EDT Treatment [facility] [place] [address] [place] [address] Carlota Jin MD 1 [facility], [facility] 2 [place] [phone] 01/08/2025 6:45 EDT Treatment [facility] [place] [address] [place] [address] Carlota Jin MD [address] [place] [address], [facility] 2 [place] [phone] 01/10/2025 6:45 EDT Treatment [facility] [place] [address] [place], [place] [id number] Carlota Jin MD [address] [place] [address], [facility] 2 [place] [phone] 01/12/2025 6:45 EDT Treatment [facility] [place] [address] [place], [place] [address] Carlota Jin MD 1 [facility], [address] [phone] 01/15/2025 6:45 EDT Treatment [facility] [place] [address] [place] [address] Carlota Jin MD 1 [facility], [address] [phone] 01/17/2025 6:45 EDT Treatment [facility] [place] [address] [place], [place] [phone] Carlota Jin MD 1 [facility], [address] [phone] 01/19/2025 6:45 EDT Treatment [facility] [place] [address] [place], [place] [phone] Carlota Jin MD [address] [phone] 01/22/2025 6:45 EDT Treatment [facility] [place] [address] [place], [place] [address] Carlota Jin MD [address] [phone] 01/24/2025 6:45 EDT Treatment [facility] [place] [address] [place], [place] [phone] Carlota Jin MD 1 [facility], [facility] 2 [place] [phone] 01/26/2025 6:45 EDT Treatment [facility] [place] [address] [place], [place] [phone] Carlota Jin MD 1 [facility], [facility] 2 [place] [phone] 01/29/2025 6:45 EDT Treatment [facility] [place] [address] [place], [place] [address] Carlota Jin MD 1 [facility], [facility] 2 [place] [phone] 01/31/2025 6:45 EDT Treatment [facility] [place] [address] [place], [place] [phone] Carlota Jin MD 1 [facility], [facility] 2 [place] [phone] 02/02/2025 6:45 EDT Treatment [facility] [place] [address] [place], [place] [id number] Carlota Jin MD 1 [facility], [facility] 2 [place] [phone] 02/05/2025 6:45 EDT Treatment [facility] [place] [address] [place], [place] [id number] Carlota Jin MD 1 [facility], [facility] 2 [place] [phone] 02/07/2025 6:45 EDT Treatment [facility] [place] [address] [place], [place] [id number] Carlota Jin MD 1 [facility], [facility] 2 [place] [phone] 02/09/2025 6:45 EDT Treatment [facility] [place] [address] [place], [place] [id number] Carlota Jin MD 1 [facility], [facility] 2 [place] [phone] 02/12/2025 6:45 EDT Treatment [facility] [place] [address] [place], [place] [address] Carlota Jin MD 1 [facility], [address] [phone] 02/14/2025 6:45 EDT Treatment [facility] [place] [address] [place], [place] [address] Carlota Jin MD 1 [facility], [address] [phone] 02/16/2025 6:45 EDT Treatment [facility] [place] [address] [place], [place] [address] Carlota Jin MD 1 [facility], [facility] 2 [place] [phone] 02/19/2025 6:45 EDT Treatment [facility] [place] [address] [place], [place] [phone] Carlota Jin MD 1 [facility], Level [address] [place] [phone] 02/21/2025 6:45 EDT Treatment [facility] [address] [place], [place] [address] Carlota Jin MD 1 [facility], Level [address] [place] [phone] documented as of this encounter Visit Diagnoses Not on filedocumented in this encounter Care Teams Brim Stitcher Relationship Specialty Start Date End Date Ken Greer MD [facility] [place] [address] PCP - General 07/07/23 documented as of this encounter
--- OUTSIDE RECORDS SUMMARY | 2024-12-05 12:16 | XMS_ITS | Encounter Summary ---
Author Organization [facility] Address [address] [place] [address] Care Team Providers Care Pay Station Collector Name Role Phone Ken Greer MD Primary Care Provider [phone] Encounter Details Date Type Department Care Team (Late st Contact Info) Description 10/15/2023 Documentation Visit [facility] [address] [place], [place] [address] Yoanna Degroot, RN Social History Tobacco Use [...] Contact Info) Description 12/06/2024 6:45 EST Treatment [facility] [place] [address] [place] [id number] Carlota Jin MD 1 [facility], Level [address] [place] [phone] 12/08/2024 6:45 EST Treatment [facility] [address] [place] [id number] Carlota Jin MD 1 [facility] 2 [place] [phone] 12/11/2024 6:45 EST Treatment [facility] [place] [address] [place], [place] [address] [phone] Carlota Jin MD 1 [facility] 2 [place] [phone] 12/13/2024 6:45 EST Treatment [facility] [place] [address] [place] [address] Carlota Jin MD 1 [facility], [facility] 2 [place] [phone] 12/15/2024 6:45 EST Treatment [facility] [place] [address] [place] [address] Carlota Jin MD 1 [facility], [facility] 2 [place] [phone] 12/18/2024 6:45 EST Treatment [facility] [place] [address] [place] [address] Carlota Jin MD 1 [facility], [facility] 2 [place] [phone] 12/20/2024 6:45 EST Treatment [facility] [place] [address] [place], [place] [phone] Carlota Jin MD 1 [facility], [facility] 2 [place] [phone] 12/22/2024 6:45 EST Treatment [facility] [place] [address] [place], [place] [id number] Carlota Jin MD 1 [facility], [facility] 2 [place] [phone] 12/25/2024 6:45 EST Treatment [facility] [place] [address] [place], [place] [id number] Carlota Jin MD 1 [facility], [facility] 2 [place] [phone] 12/27/2024 6:45 EST Treatment [facility] [place] [address] [place], [place] [phone] Carlota Jin MD 1 [facility], [facility] 2 [place] [phone] 12/29/2024 6:45 EST Treatment [facility] [place] [address] [place], [place] [address] Carlota Jin MD 1 [facility], [facility] 2 [place] [phone] 01/01/2025 6:45 EDT Treatment [facility] [place] [address] [place], [place] [phone] Carlota Jin MD 1 [facility], [facility] 2 [place] [phone] 01/03/2025 6:45 EDT Treatment [facility] [place] [address] [place], [place] [phone] Carlota Jin MD 1 [facility], [facility] 2 [place] [phone] 01/05/2025 6:45 EDT Treatment [facility] [place] [address] [place] [address] Carlota Jin MD 1 [facility], [facility] 2 [place] [phone] 01/08/2025 6:45 EDT Treatment [facility] [place] [address] [place], [place] [id number] Carlota Jin MD 1 [facility], [address] [phone] 01/10/2025 6:45 EDT Treatment [facility] [place] [address] [place], [place] [id number] Carlota Jin MD 1 [facility], [address] [phone] 01/12/2025 6:45 EDT Treatment [facility] [place] [address] [place], [place] [id number] Carlota Jin MD 1 [facility], [address] [phone] 01/15/2025 6:45 EDT Treatment [facility] [place] [address] [place], [place] [phone] Carlota Jin MD 1 [facility], [facility] 2 [place] [phone] 01/17/2025 6:45 EDT Treatment [facility] [place] [address] [place], [place] [id number] Carlota Jin MD 1 [facility], [facility] 2 [place] [phone] 01/19/2025 6:45 EDT Treatment [facility] [place] [address] [place], [place] [phone] Carlota Jin MD 1 [facility], [facility] 2 [place] [phone] 01/22/2025 6:45 EDT Treatment [facility] [place] [address] [place] [address] Carlota Jin MD 1 [facility], [facility] 2 [place] [phone] 01/24/2025 6:45 EDT Treatment [facility] [place] [address] [place], [place] [phone] Carlota Jin MD 1 [facility], [facility] 2 [place] [phone] 01/26/2025 6:45 EDT Treatment [facility] [place] [address] [place], [place] [phone] Carlota Jin MD 1 [facility], [facility] 2 [place] [phone] 01/29/2025 6:45 EDT Treatment [facility] [place] [address] [place], [place] [address] Carlota Jin MD 1 [facility], [facility] 2 [place] [phone] 01/31/2025 6:45 EDT Treatment [facility] [place] [address] [place], [place] [phone] Carlota Jin MD 1 [facility], [facility] 2 [place] [phone] 02/02/2025 6:45 EDT Treatment [facility] [place] [address] [place], [place] [phone] Carlota Jin MD 1 [facility], [facility] 2 [place] [phone] 02/05/2025 6:45 EDT Treatment [facility] [place] [address] [place], [place] [phone] Carlota Jin MD 1 [facility], [facility] 2 [place] [phone] 02/07/2025 6:45 EDT Treatment [facility] [place] [address] [place], [place] [id number] Carlota Jin MD 1 [facility], [facility] 2 [place] [phone] 02/09/2025 6:45 EDT Treatment [facility] [place] [address] [place], [place] [phone] Carlota Jin MD 1 [facility], [facility] 2 [place] [phone] 02/12/2025 6:45 EDT Treatment [facility] [place] [address] [place], [place] [address] Carlota Jin MD 1 [facility], [facility] 2 [place] [phone] 02/14/2025 6:45 EDT Treatment [facility] [place] [address] [place], [place] [phone] Carlota Jin MD 1 [facility], [facility] 2 [place] [phone] 02/16/2025 6:45 EDT Treatment [facility] [place] [address] [place], [place] [phone] Carlota Jin MD 1 [facility], [facility] 2 [place] [phone] 02/19/2025 6:45 EDT Treatment [facility] [place] [address] [place] [address] Carlota Jin MD 1 [facility], [facility] 2 [place] [phone] 02/21/2025 6:45 EDT Treatment [facility] [place] [address] [place], [place] [phone] Carlota Jin MD 1 [facility], [facility] 2 [place] [phone] documented as of this encounter Visit Diagnoses Not on filedocumented in this encounter Care Teams Pay Station Collector Relationship Specialty Start Date End Date Ken [place] [address] PCP - General 07/07/23 documented as of this encounter
--- OUTSIDE RECORDS SUMMARY | 2024-12-05 12:16 | XMS_ITS | Encounter Summary ---
Author Organization [facility] Address [address] [place] [address] Care Team Providers Care Figure Clerk Name Role Phone Ken Greer MD Primary Care Provider [phone] Encounter Details Date Type Department Care Team (Late st Contact Info) Description 10/08/2023 Documentation Visit [facility] [address] [place], [place] [address] Melissa Crespo, RN Social History Tobacco Use [...] Treatment [facility] [place] [address] [place] [phone] Carlota Jin MD 1 [facility], Level [address] [place] [phone] 12/08/2024 6:45 EST Treatment [facility] [address] [place] [phone] Carlota Jin MD 1 [facility] 2 [place] [phone] 12/11/2024 6:45 EST Treatment [facility] [place] [address] [place], [place] [address] [phone] Carlota Jin MD 1 [facility] 2 [place] [phone] 12/13/2024 6:45 EST Treatment [facility] [place] [address] [place] [address] Carlota Jin MD 1 [facility], [facility] 2 [place] [phone] 12/15/2024 6:45 EST Treatment [facility] [place] [address] [place] [address] Carlota Jin MD 1 [facility], [facility] 2 [place] [phone] 12/18/2024 6:45 EST Treatment [facility] [place] [address] [place] [address] Carlota Jin MD 1 [facility], [facility] 2 [place] [phone] 12/20/2024 6:45 EST Treatment [facility] [place] [address] [place], [place] [phone] Carlota Jin MD 1 [facility] 2 [place] [phone] 12/22/2024 6:45 EST Treatment [facility] [place] [address] [place], [place] [phone] Carlota Jin MD 1 [facility], [facility] 2 [place] [phone] 12/25/2024 6:45 EST Treatment [facility] [place] [address] [place], [place] [phone] Carlota Jin MD 1 [facility], [facility] 2 [place] [phone] 12/27/2024 6:45 EST Treatment [facility] [place] [address] [place], [place] [phone] Carlota Jin MD 1 [facility], [facility] 2 [place] [phone] 12/29/2024 6:45 EST Treatment [facility] [place] [address] [place], [place] [address] Carlota Jin MD 1 [facility], [facility] 2 [place] [phone] 01/01/2025 6:45 EDT Treatment [facility] [place] [address] [place], [place] [phone] Carlota Jin MD 1 [facility], [facility] 2 [place] [phone] 01/03/2025 6:45 EDT Treatment [facility] [place] [address] [place], [place] [phone] Carlota Jin MD 1 [facility], [facility] 2 [place] [phone] 01/05/2025 6:45 EDT Treatment [facility] [place] [address] [place] [address] Carlota Jin MD 1 [facility], [facility] 2 [place] [phone] 01/08/2025 6:45 EDT Treatment [facility] [place] [address] [place], [place] [phone] Carlota Jin MD 1 [facility], [address] [phone] 01/10/2025 6:45 EDT Treatment [facility] [place] [address] [place], [place] [id number] Carlota Jin MD 1 [facility], [address] [phone] 01/12/2025 6:45 EDT Treatment [facility] [place] [address] [place], [place] [id number] Carlota Jin MD 1 [facility], [address] [phone] 01/15/2025 6:45 EDT Treatment [facility] [place] [address] [place], [place] [phone] Carlota Jin MD 1 [facility] 2 [place] [phone] 01/17/2025 6:45 EDT Treatment [facility] [place] [address] [place], [place] [phone] Carlota Jin MD 1 [facility], [facility] 2 [place] [phone] 01/19/2025 6:45 EDT Treatment [facility] [place] [address] [place], [place] [phone] Carlota Jin MD 1 [facility], [facility] 2 [place] [phone] 01/22/2025 6:45 EDT Treatment [facility] [place] [address] [place] [address] Carlota Jin MD 1 [facility], [facility] 2 [place] [phone] 01/24/2025 6:45 EDT Treatment [facility] [place] [address] [place], [place] [phone] Carlota Jin MD 1 [facility], [facility] 2 [place] [phone] 01/26/2025 6:45 EDT Treatment [facility] [place] [address] [place], [place] [phone] Carltoa Jin MD 1 [facility], [facility] 2 [place] [phone] 01/29/2025 6:45 EDT Treatment [facility] [place] [address] [place], [place] [address] Carlota Jin MD 1 [facility], [facility] 2 [place] [phone] 01/31/2025 6:45 EDT Treatment [facility] [place] [address] [place], [place] [phone] Carlota Jin MD 1 [facility], [facility] 2 [place] [phone] 02/02/2025 6:45 EDT Treatment [facility] [place] [address] [place], [place] [phone] Carlota Jin MD 1 [facility], [facility] 2 [place] [phone] 02/05/2025 6:45 EDT Treatment [facility] [place] [address] [place], [place] [id number] Carlota Jin MD 1 [facility], [facility] 2 [place] [phone] 02/07/2025 6:45 EDT Treatment [facility] [place] [address] [place], [place] [phone] Carlota Jin MD 1 [facility], [facility] 2 [place] [phone] 02/09/2025 6:45 EDT Treatment [facility] [place] [address] [place], [place] [id number] Carlota Jin MD 1 [facility], [facility] 2 [place] [phone] 02/12/2025 6:45 EDT Treatment [facility] [place] [address] [place], [place] [address] Carlota Jin MD 1 [facility] 2 [place] [phone] 02/14/2025 6:45 EDT Treatment [facility] [place] [address] [place], [place] [phone] Carlota Jin MD 1 [facility], [facility] 2 [place] [phone] 02/16/2025 6:45 EDT Treatment [facility] [place] [address] [place], [place] [phone] Carlota Jin MD 1 [facility], [facility] 2 [place] [phone] 02/19/2025 6:45 EDT Treatment [facility] [place] [address] [place] [address] Carlota Jin MD 1 [facility], [facility] 2 [place] [phone] 02/21/2025 6:45 EDT Treatment [facility] [place] [address] [place], [place] [phone] Carlota Jin MD 1 [facility], [facility] 2 [place] [phone] documented as of this encounter Visit Diagnoses Not on filedocumented in this encounter Care Teams Figure Clerk Relationship Specialty Start Date End Date Ken Greer MD [place] [address] PCP - General 07/07/23 documented as of this encounter
--- OUTSIDE RECORDS SUMMARY | 2024-12-05 12:16 | XMS_ITS | Encounter Summary ---
Author Organization [facility] Address [address] [place] [address] Care Team Providers Care Health Data Administrator Name Role Phone Ken Greer MD Primary Care Provider [phone] Encounter Details Date Type Department Care Team (Latest Contact Info) Description 10/27/2023 6:45 EST Treatment [facility] [address] [place], [place] [phone] Carlota Jni MD 1 [facility], Level [address] [place] [phone] ESRD (end stage renal disease) ([facility]) (Primary Dx); Secondary hyperparathyroidism ([facility]); Anemia of chronic renal failure, unspecified CKD stage; Hypoalbuminemia Social History Tobacco Use Types Packs/Day [...] - Temperature - - Respiratory Rate 16 10/27/2023 0627 EST Oxygen Saturation - - Inhaled Oxygen Concentration - - Weight 90.6 kg (199 lb 11.8 oz) 10/27/2023 0629 EST Height - - Body Mass Index 29.5 07/08/2023 0839 EDT documented in this encounter Miscellaneous Notes * Flowsheet Note - Marcela Cox RN - 10/27/2023 1359 EST 10/27/23 1048 Post-Hemodialysis Assessment Total Blood Processed (L) 87.8 Liters On Line Clearance: spKt/V 1.44 spKt/V Dialyzer Clearance Lightly streaked Treatment UFR (ml:kg:hr) 8.42 ml:kg:hr Final Critline Profile (%/hr) -2.07 Final Profile Profile A Critline refill Negative (H1: 34.2 H2: 34.3) Fluid Removed (L) 3.5 L Post-Dialysis Scale Weight 87.6 kg (193 lb 2 oz) Wheelchair Weight 0 kg (0 lb) Prosthesis Weight 0 kg (0 lb) Post-Treatment Weight (kg) 87.6 Treatment Weight Change (kg) 3 kg Day Target Weight (kg) 87.6 Post Sitting/Lying BP 141/78 Post Sitting/Lying pulse 65 Post Standing BP 140/73 Post Standing Pulse 71 Temp 35.9 ??C (96.6 ??F) Temp src Temporal Post access assessment [...] Treatment [facility] [place] [address] [place] [address] Carlota Jin MD 1 [facility], Level [address] [place] [address] 12/08/2024 6:45 EST Treatment [facility] [place] [address] [place], [place] [phone] Carlota Jin MD 1 [facility], [facility] 2 [place] [phone] 12/11/2024 6:45 EST Treatment [facility] [place] [address] [place], [place] [phone] Carlota Jin MD 1 [facility], [facility] 2 [place] [phone] 12/13/2024 6:45 EST Treatment [facility] [place] [address] [place], [place] [phone] Carlota Jin MD 1 [facility], [facility] 2 [place] [phone] 12/15/2024 6:45 EST Treatment [facility] [place] [address] [place], [place] [phone] Carlota Jin MD 1 [facility], [facility] 2 [place] [phone] 12/18/2024 6:45 EST Treatment [facility] [place] [address] [place], [place] [phone] Carlota Jin MD 1 [facility], [facility] 2 [place] [phone] 12/20/2024 6:45 EST Treatment [facility] [address] [place], [place] [phone] Carlota Jin MD 1 [facility], [facility] 2 [place] [phone] 12/22/2024 6:45 EST Treatment [facility] [place] [address] [place] [address] Carlota Jin MD 1 [facility], [facility] 2 [place] [phone] 12/25/2024 6:45 EST Treatment [facility] [place] [address] [place] [address] Carlota Jin MD 1 [facility], [facility] 2 [place] [phone] 12/27/2024 6:45 EST Treatment [facility] [place] [address] [place] [address] Carlota Jin MD 1 [facility], [facility] 2 [place] [phone] 12/29/2024 6:45 EST Treatment [facility] [place] [address] [place] [address] Carlota Jin MD 1 [facility], [facility] 2 [place] [phone] 01/01/2025 6:45 EDT Treatment [facility] [place] [address] [place], [place] [phone] Carlota Jin MD 1 [facility], [facility] 2 [place] [phone] 01/03/2025 6:45 EDT Treatment [facility] [place] [address] [place], [place] [address] Carlota Jin MD 1 [facility], [facility] 2 [place] [phone] 01/05/2025 6:45 EDT Treatment [facility] [place] [address] [place], [place] [phone] Carlota Jin MD [address] [place] [address], [facility] 2 [place] [phone] 01/08/2025 6:45 EDT Treatment [facility] [place] [address] [place] [address] Carlota Jin MD [address] [place] [address], [facility] 2 [place] [phone] 01/10/2025 6:45 EDT Treatment [facility] [place] [address] [place] [address] Carlota Jin MD [address] [place] [address], [facility] 2 [place] [phone] 01/12/2025 6:45 EDT Treatment [facility] [place] [address] [place], [place] [phone] Carlota Jin MD 1 [facility], [facility] 2 [place] [phone] 01/15/2025 6:45 EDT Treatment [facility] [place] [address] [place], [place] [address] Carlota Jin MD 1 [facility], [address] [phone] 01/17/2025 6:45 EDT Treatment [facility] [place] [address] [place], [place] [phone] Carlota Jin MD 1 [facility], [address] [phone] 01/19/2025 6:45 EDT Treatment [facility] [place] [address] [place], [place] [phone] Carlota Jin MD 1 [facility], [address] [phone] 01/22/2025 6:45 EDT Treatment [facility] [place] [address] [place], [place] [phone] Carlota Jin MD [address] [phone] 01/24/2025 6:45 EDT Treatment [facility] [place] [address] [place], [place] [phone] Carlota Jin MD [address] [phone] 01/26/2025 6:45 EDT Treatment [facility] [place] [address] [place], [place] [phone] Carlota Jin MD 1 [facility], [address] [phone] 01/29/2025 6:45 EDT Treatment [facility] [place] [address] [place], [place] [phone] Carlota Jin MD 1 [facility], [facility] 2 [place] [phone] 01/31/2025 6:45 EDT Treatment [facility] [place] [address] [place], [place] [phone] Carlota Jin MD 1 [facility], [facility] 2 [place] [phone] 02/02/2025 6:45 EDT Treatment [facility] [place] [address] [place], [place] [phone] Carlota Jin MD 1 [facility], [address] [phone] 02/05/2025 6:45 EDT Treatment [facility] [place] [address] [place] [address] Carlota Jin MD 1 [facility], [facility] 2 [place] [phone] 02/07/2025 6:45 EDT Treatment [facility] [place] [address] [place], [place] [phone] Carlota Jin MD 1 [facility], [facility] 2 [place] [phone] 02/09/2025 6:45 EDT Treatment [facility] [place] [address] [place], [place] [phone] Carlota Jin MD 1 [facility], [facility] 2 [place] [phone] 02/12/2025 6:45 EDT Treatment [facility] [place] [address] [place], [place] [phone] Carlota Jin MD 1 [facility], [address] [phone] 02/14/2025 6:45 EDT Treatment [facility] [place] [address] [place], [place] [phone] Carlota Jin MD 1 [facility], [address] [phone] 02/16/2025 6:45 EDT Treatment [facility] [place] [address] [place], [place] [phone] Carlota Jin MD 1 [facility], [address] [phone] 02/19/2025 6:45 EDT Treatment [facility] [place] [address] [place], [place] [phone] Carlota Jni MD 1 [facility], [address] [phone] 02/21/2025 6:45 EDT Treatment [facility] [place] [address] [place], [place] [phone] Carlota Jin MD 1 [facility], [address] [place] [phone] documented as of this encounter Procedures Procedure Name Priority Date/Time Associated Diagnosis Comments POSTDIALYSIS BUN WITH URR CALCULATION Routine 10/27/2023 11:03 EST ESRD (end stage renal disease) ([facility]) TRANSFERRIN SATURATION Routine 10/27/2023 6:35 EST ESRD (end stage renal disease) ([facility]) VITAMIN D (25,OH) Routine 10/27/2023 6:3 5 EST ESRD (end stage renal disease) ([facility]) DIALYSIS ROUTINE - DIALYSIS ONLY (BUN, K, NA, CL, CO2, SANJEEV, ALB, MG, PHOS, ALKP, AST) Routine 10/27/2023 6:35 EST ESRD (end stage renal disease) ([facility]) PROFILE IRON STUDIES (INCLUDES IRON, IBC, AND FERRITIN) Routine 10/27/2023 6:35 EST ESRD (end stage renal disease) ([facility]) DIALYSIS HEPATITIS- DIALYSIS USE ONLY Routine 10/27/2023 6:35 EST ESRD (end stage renal disease) ([facility]) PTH INTACT Routine 10/27/2023 6:35 EST ESRD (end stage renal disease) ([facility]) Secondary hyperparathyroidism ([facility]) COMPLETE BLOOD COUNT Routine 10/27/2023 6:35 EST ESRD (end stage renal disease) ([facility]) FOLATE Routine 10/27/2023 6:35 EST ESRD (end stage renal disease) ([facility]) FERRITIN Routine 10/27/2023 6:35 EST ESRD (end stage renal disease) ([facility]) VITAMIN B12 Routine 10/27/2023 6:35 EST ESRD (end stage renal disease) ([facility]) HEMODIALYSIS Routine 10/27/2023 6:27 EST ESRD (end stage renal disease) ([facility]) documented in this encounter Results * (ABNORMAL) POSTDIALYSIS BUN WITH URR CALCULATION (10/27/2023 11:03 EST) BUN, Postdialysis 26 10 - 26 mg/dL 10/27/2023 23:49 EST [facility] Urea Reduction Rate 69.0 Not Established % 10/27/2023 23:49 EST [facility] Comment: NOTE: Reference range not established for Urea Reduction Rate. BUN 84(H) 10 - 26 mg/dL 10/27/2023 23:49 EST [facility] Blood VENOUS BLOOD / Unknown Venipuncture / Unknown 10/27/2023 11:03 EST 10/27/2023 11:03 EST Skye Gomez TIRE MECHANIC CHEMISTRY & BLOOD GAS ORDER FRANSISCO Final Result Performing Organization Address City/[facility] Co de Phone Number [facility] [address] [place] [address] * (ABNORMAL) FERRITIN (10/27/2023 6:35 EST) Ferritin 564(H) 22 - 322 ng/mL 10/28/2023 9:55 EST [facility] Blood VENOUS BLOOD / Unknown Venipuncture / Unknown 10/27/2023 6:35 EST 10/27/2023 6:35 EST Skye Gomez TIRE MECHANIC CHEMISTRY & BLOOD GAS ORDER FRANSISCO Final Result Performing Organization Address City/[facility]/ZIP Co de Phone Number [facility] [address] [place] [address] * (ABNORMAL) TRANSFERRIN SATURATION (10/27/2023 6:35 EST) Iron 48(L) 49 - 181 ??g/dL 10/27/2023 23:58 EST [facility] Iron Binding Capacity 215(L) 240 - 450 ??g/dL 10/27/2023 23:58 EST [facility] Transferrin Saturation 22 15 - 45 % 10/27/2023 23:58 EST [facility] Blood VENOUS BLOOD / Unknown Venipuncture / Unknown 10/27/2023 6:35 EST 10/27/2023 6:35 EST Skye Gomez TIRE MECHANIC CHEMISTRY & BLOOD GAS ORDER FRANSISCO Final Result Performing Organization Address [facility]/ZIP Co de Phone Number [facility] [address] [place] [address] * (ABNORMAL) VITAMIN D (25,OH) (10/27/2023 6:35 EST) 25OH Vitamin D Tot 21(L) 30 - 100 ng/mL 10/28/2023 8:39 EST [facility] Comment: Vitamin D 25,OH Interpretive Ranges: Deficiency: ??<10.0 ng/mL Insufficiency: ??10.0 - 30.0 ng/mL Sufficiency: ??30.0 - 100.0 ng/mL Toxicity: ??>100.0 ng/mL Blood VENOUS BLOOD / Unknown Venipuncture / Unknown 10/27/2023 6:35 EST 10/27/2023 6:35 EST Skye Gomez NP CHEMISTRY & BLOOD GAS ORDER FRANSISCO Final Result Performing Organization Address [facility] Co de Phone Number [facility] [address] [place] [address] * VITAMIN B12 (10/27/2023 6:35 EST) Vitamin B12 607 211 - 911 pg/mL 10/28/2023 10:14 EST [facility] Blood VENOUS BLOOD / Unknown Venipuncture / Unknown 10/27/2023 6:35 EST 10/27/2023 6:35 EST Skye Gomez TIRE MECHANIC CHEMISTRY & BLOOD GAS ORDER FRANSISCO Final Result Performing Organization Address [facility] Co de Phone Number [facility] [address] [place] [address] * FOLATE (10/27/2023 6:35 EST) Pathologist [facility] [place] Folate >24.0 See Note ng/mL 10/28/2023 12:41 [facility] Comment: Reference Ranges for Folate: Deficient: ?< 3.4 ng/mL Indeterminate: ??3.4 - 5.4 ng/mL Normal: ? > 5.4 ng/mL The results of this assay can be falsely elevated due to the consumption of Biotin. Blood VENOUS BLOOD / Unknown Venipuncture / Unknown 10/27/2023 6:35 EST 10/27/2023 6:35 EST Skye Gomez TIRE MECHANIC CHEMISTRY & BLOOD GAS ORDER FRANSISCO Final Result Performing Organization Address [facility] Co de Phone Number [facility] [address] [place] [address] * DIALYSIS HEPATITIS- DIALYSIS USE ONLY (10/27/2023 6:35 EST) Pathologist [facility] [place] Hep B Surface Ag Negative Negative 10/28/19 9:35 [facility] Hep B Surface Ab, Quantitative 138.0 See Note mIU/mL 10/28/2023 9:35 [facility] Comment: Reference Range for Hep B Surface Ab, Quant: Positive: >= 10.0 mIU/mL Negative: ??< 10.0 mIU/mL Patient is presumed to be immune to infection with Hepatitis B Virus. Hep B Surface Ab, Qualitative Positive See Note 10/28/2023 9:35 [facility] Comment: Reference Range for Hep B Surface Ab, Qual: Unvaccinated: ??Negative Vaccinated: ??Positive Hepatitis B Core Ab, Total Negative Negative 10/28/2023 9:35 [facility] Hep C Antibody Negative Negative 10/28/2023 9:35 EST [facility] Blood VENOUS BLOOD / Unknown Venipuncture / Unknown 10/27/2023 6:35 EST 10/27/2023 6:35 EST Skye Gomez TIRE MECHANIC CHEMISTRY & BLOOD GAS ORDER FRANSISCO Final Result Performing Organization Address [facility]/ZIP Co de Phone Number [facility] [address] [place] [address] * (ABNORMAL) PTH INTACT (10/27/2023 6:35 EST) Intact PTH 707(H) 19 - 88 pg/mL 10/28/2023 9:50 [facility] Blood VENOUS BLOOD / Unknown Venipuncture / Unknown 10/27/2023 6:35 EST 10/27/2023 6:35 EST Skye Gomez TIRE MECHANIC CHEMISTRY & BLOOD GAS ORDER FRANSISCO Final Result Performing Organization Address [facility] de Phone Number [facility] [address] [place] [address] * (ABNORMAL) DIALYSIS ROUTINE - DIALYSIS ONLY (BUN, K, NA, CL, CO2, SANJEEV, ALB, MG, PHOS, ALKP, AST) (10/27/2023 6:35 EST) Sodium 140 136 - 145 mmol/L 10/27/2023 23:48 [facility] Potassium 5.9(H) 3.5 - 5.0 mmol/L 10/27/2023 23:48 [facility] Chloride 104 96 - 110 mmol/L 10/27/2023 23:48 [facility] CO2 Total 22 22 - 32 mmol/L 10/27/2023 23:48 [facility] Calcium 8.4(L) 8.5 - 10.5 mg/dL 10/27/2023 23:48 [facility] Albumin 3.1(L) 3.4 - 4.9 g/dL 10/27/2023 23:48 [facility] Phosphorus 8.5(H) 2.5 - 4.5 mg/dL 10/27/2023 23:48 [facility] Calcium Phos Product 71.4 See Note mg/dL 10/27/2023 23:48 [facility] Comment: NOTE: Reference range not established BUN, Predialysis 84(H) 10 - 26 mg/dL 10/27/2023 23:48 [facility] AST 22 15 - 46 U/L 10/27/2023 23:48 [facility] Alkaline Phosphatase 95 38 - 126 U/L 10/27/2023 23:48 [facility] Magnesium 2.5 1.7 - 2.8 mg/dL 10/27/2023 23:48 [facility] Anion Gap 14 5 - 14 mmol/L 10/27/2023 23:48 [facility] Calculated Calcium 9.1 8.9 - 10.5 mg/dL 10/27/2023 23:48 [facility] Blood VENOUS BLOOD / Unknown Venipuncture / Unknown 10/27/2023 6:35 EST 10/27/2023 6:35 EST Skye Gomez TIRE MECHANIC CHEMISTRY & BLOOD GAS ORDER FRANSISCO Final Result [facility] [address] [place] [address] * (ABNORMAL) COMPLETE BLOOD COUNT (10/27/2023 6:35 EST) WBC 8.48 4.00 - 10.40 K/cmm 10/27/2023 21:56 [facility] RBC 3.56(L) 4.36 - 5.78 M/cmm 10/27/2023 21:56 [facility] Hemoglobin 11.1(L) 13.8 - 17.3 g/dL 10/27/2023 21:56 [facility] HCT 33.9(L) 39.5 - 50.2 % 10/27/2023 21:56 [facility] MCV 95 81 - 95 fL 10/27/2023 21:56 [facility] MCH 31.2 27.6 - 33.0 pg 10/27/2023 21:56 [facility] MCHC 32.7(L) 32.8 - 36.4 g/dL 10/27/2023 21:56 [facility] RDW-CV 12.5 <14.2 % 10/27/2023 21:56 [facility] RDW-SD 43.5 <46.0 fl 10/27/2023 21:56 [facility] PLT 257 141 - 377 K/cmm 10/27/2023 21:56 [facility] MPV 12.4 9.5 - 12.7 fL 10/27/2023 21:56 [facility] Blood VENOUS BLOOD / Unknown Venipuncture / Unknown 10/27/2023 6:35 EST 10/27/2023 6:35 EST us Skye Gomez NP HEMATOLOGY & PF4 ORDERABLES Final Result [facility] [address] [place] [address] documented in this encounter Visit Diagnoses Diagnosis ESRD (end stage renal disease) ([facility] Primary End stage renal disease Secondary hyperparathyroidism ([facility]) Secondary hyperparathyroidism (of renal origin) Anemia of [...] oral, ONCE IN DIALYSIS, 1 dose, On Wed10/27/23 at 0645, Routine, DialysisIndications:ESRD (end stage renal disease) ([facility]),Secondary hyperparathyroidism ([facility]) Given 10/27/2023 6:57 EST 2 Tablets epoetin ken (EPOGEN) 20,000 unit/2 mL injection 1,000 Units 1,000 Units, intravenous, ONCE IN DIALYSIS, 1 dose, On Wed10/27/23 at 0645, Routine, DialysisIndications:ESRD (end stage renal disease) ([facility]),Anemia of chronic renal failure, unspecified CKD stage Given 10/27/2023 6:57 EST 1,000 Units heparin injection 9,000 Units 9,000 Units, intravenous, ONCE IN DIALYSIS, 1 dose, On Wed10/27/23 at 0645, Routine, Dialysis, Now x1 bolus 4500 units to be given at the beginning of dialysis 1500 units/hour to be given over the course of dialysis (9000 units total). Stop 1 hour prior to end of treatment. To be administered per Policy [id number].Indications:ESRD (end stage renal disease) ([facility]) Given 10/27/2023 6:57 EST 9,000 Units LiquaCel liquid protein liquid 30 mL 30 mL, oral, ONCE IN DIALYSIS, 1 dose, On Wed10/27/23 at 0645, RoutineIndications:ESRD (end stage renal disease) ([facility]),Hypoalbuminemia Given 10/27/2023 6:57 EST 30 mL documented in this encounter Orders Dialysis Count Last Ordered Date First Orde red Date HEMODIALYSIS 1 10/27/2023 documented in this encounter Care Teams Health Data Administrator Relationship Specialty Start Date End Date Ken Greer MD [address] [place] [address] PCP - General 07/07/23 documented as of this encounter
--- OUTSIDE RECORDS SUMMARY | 2024-12-05 12:16 | XMS_ITS | Encounter Summary ---
Author Organization [facility] Address [address] [place] [address] Care Team Providers Care Real Estate Director Name Role Phone Ken Greer MD Primary Care Provider [phone] Encounter Details Date Type Department Care Team (Latest Contact Info) Description 10/08/2023 6:45 EST Treatment [facility] [address] [place], [place] [id number] Carlota Jin MD 1 [facility], Level [address] [place] [address] ESRD (end stage renal disease) ([facility]) (Primary Dx); Anemia of chronic renal failure, unspecified CKD stage; Hypoalbuminemia; Secondary hyperparathyroidism ([facility]) Social History Tobacco Use Types [...] - Temperature - - Respiratory Rate 16 10/08/2023 0624 EST Oxygen Saturation - - Inhaled Oxygen Concentration - - Weight 90.2 kg (198 lb 13.7 oz) 10/08/2023 0630 EST Height - - Body Mass Index 29.37 07/08/2023 0839 EDT documented in this encounter Miscellaneous Notes * Flowsheet Note - Marcela Cox RN - 10/08/2023 1400 EST 10/08/23 1048 Post-Hemodialysis Assessment Total Blood Processed (L) 89.99 Liters On Line Clearance: spKt/V 1.43 spKt/V Dialyzer Clearance Lightly streaked Treatment UFR (ml:kg:hr) 10.77 ml:kg:hr Final Critline Profile (%/hr) -2.57 Final Profile Profile A Fluid Removed (L) 4.2 L Post-Dialysis Scale Weight 87.8 kg (193 lb 9 oz) Wheelchair Weight 0 kg (0 lb) Prosthesis Weight 1.4 kg (3 lb 1.4 oz) Post-Treatment Weight (kg) 86.4 Treatment Weight Change (kg) 3.8 kg Day Target Weight (kg) 86.5 Post Sitting/Lying BP 108/59 Post Sitting/Lying pulse 65 Post Standing BP 99/54 Post Standing Pulse 74 Temp 35.9 ??C (96.6 ??F) Temp src Temporal Post access assessment Bruit present: Yes Thrill Present AVF/AFG Hemostasis achieved Yes Note access clamped for 10min, no bleeding, clean dry bandages applied Orientation Alert and Oriented x3 Yes Time [...] Treatment [facility] [place] [address] [place] [address] Carlota Jin MD 1 [facility], [address] [place] [address] 12/08/2024 6:45 EST Treatment [facility] [place] [address] [place], [place] [id number] Carlota Jin MD 1 [facility], [facility] [address] [place] [phone] 12/11/2024 6:45 EST Treatment [facility] [place] [address] [place], [place] [phone] Carlota Jin MD 1 [facility], [facility] [address] [place] [phone] 12/13/2024 6:45 EST Treatment [facility] [place] [address] [place] [address] Carlota Jin MD [address] [place] [address], [facility] [address] [place] [phone] 12/15/2024 6:45 EST Treatment [facility] - [place] [address] [place], [place] [id number] Carlota Jin MD 1 [facility], [facility] [address] [place] [phone] 12/18/2024 6:45 EST Treatment [facility] [place] [address] [place], [place] [phone] Carlota Jin MD 1 [facility], [facility] [address] [place] [phone] 12/20/2024 6:45 EST Treatment [facility] [place] [address] [place], [place] [id number] Carlota Jin MD 1 [facility], [facility] [address] [place] [phone] 12/22/2024 6:45 EST Treatment [facility] [place] [address] [place], [place] [id number] Carlota Jin MD 1 [facility], [facility] [address] [place] [phone] 12/25/2024 6:45 EST Treatment [facility] [place] [address] [place], [place] [id number] Carlota Jin MD 1 [facility], [facility] 2 [place] [phone] 12/27/2024 6:45 EST Treatment [facility] - [place] [address] [place], [place] [id number] Carlota Jin MD 1 [facility], [facility] [address] [place] [phone] 12/29/2024 6:45 EST Treatment [facility] [address] [place], [place] [id number] Carlota Jin MD 1 [facility], [facility] 2 [place] [phone] 01/01/2025 6:45 EDT Treatment [facility] [place] [address] [place], [place] [id number] Carlota Jin MD 1 [facility], [facility] 2 [place] [phone] 01/03/2025 6:45 EDT Treatment [facility] [place] [address] [place], [place] [id number] Carlota Jin MD 1 [facility], [facility] 2 [place] [phone] 01/05/2025 6:45 EDT Treatment [facility] [place] [address] [place], [place] [phone] Carlota Jin MD 1 [facility], [facility] [address] [place] [phone] 01/08/2025 6:45 EDT Treatment [facility] [place] [address] [place], [place] [id number] Carlota Jin MD 1 [facility], [facility] [address] [place] [phone] 01/10/2025 6:45 EDT Treatment [facility] [place] [address] [place], [place] [id number] Carlota Jin MD 1 [facility], [facility] [address] [place] [phone] 01/12/2025 6:45 EDT Treatment [facility] [place] [address] [place], [place] [id number] Carlota Jin MD 1 [facility], [facility] [address] [place] [phone] 01/15/2025 6:45 EDT Treatment [facility] - [place] [address] [place], [place] [id number] Carlota Jin MD 1 [facility], [facility] [address] [place] [phone] 01/17/2025 6:45 EDT Treatment [facility] [place] [address] [place] [address] Cralota Jin MD 1 [facility], [facility] [address] [place] [phone] 01/19/2025 6:45 EDT Treatment [facility] [place] [address] [place], [place] [phone] Carlota Jin MD 1 [facility], [facility] [address] [place] [phone] 01/22/2025 6:45 EDT Treatment [facility] - [place] [address] [place], [place] [id number] Carlota Jin MD 1 [facility], [address] [phone] 01/24/2025 6:45 EDT Treatment [facility] [place] [address] [place], [place] [phone] Carlota Jin MD 1 [facility], [facility] [address] [place] [phone] 01/26/2025 6:45 EDT Treatment [facility] [place] [address] [place], [place] [id number] Carlota Jin MD 1 [facility], [facility] 2 [place] [phone] 01/29/2025 6:45 EDT Treatment [facility] [place] [address] [place], [place] [id number] Carlota Jin MD 1 [facility], [facility] [address] [place] [phone] 01/31/2025 6:45 EDT Treatment [facility] - [place] [address] [place], [place] [phone] Carlota Jin MD 1 [facility], [facility] [address] [place] [phone] 02/02/2025 6:45 EDT Treatment [facility] - [place] [address] [place], [place] [id number] Carlota Jin MD [address] [place] [address], [address] [phone] 02/05/2025 6:45 EDT Treatment [facility] [place] [address] [place], [place] [id number] Carlota Jin MD [address] [place] [address], [facility] 2 [place] [phone] 02/07/2025 6:45 EDT Treatment [facility] - [place] [address] [place], [place] [id number] Carlota Jin MD 1 [facility], [facility] [address] [place] [phone] 02/09/2025 6:45 EDT Treatment [facility] [place] [address] [place], [place] [address] Carlota Jin MD 1 [facility], [facility] [address] [place] [phone] 02/12/2025 6:45 EDT Treatment [facility] - [place] [address] [place], [place] [id number] Carlota Jin MD 1 [facility], [facility] [address] [place] [phone] 02/14/2025 6:45 EDT Treatment [facility] - [place] [address] [place], [place] [id number] Carlota Jin MD 1 [facility], [facility] [address] [place] [phone] 02/16/2025 6:45 EDT Treatment [facility] [place] [address] [place], [place] [phone] Carlota Jin MD 1 [facility], [facility] [address] [place] [phone] 02/19/2025 6:45 EDT Treatment [facility] - [place] [address] [place], [place] [phone] Carlota Jin MD 1 [facility], [facility] [address] [place] [phone] 02/21/2025 6:45 EDT Treatment [facility] [place] [address] [place], [place] [phone] Carlota Jin MD 1 [facility], [facility] [address] [place] [phone] documented as of this encounter Procedures Procedure Name Priority Date/Time Associated Diagnosis Comments HEMODIALYSIS Routine 10/08/2023 6:24 EST ESRD (end stage renal disease) ([facility]) documented in this encounter Visit Diagnoses Diagnosis ESRD (end stage renal disease) ([facility])- Primary End stage renal disease Anemia of chronic renal failure, unspecified CKD stage Hypoalbuminemia Other disorders of plasma protein metabolism Secondary hyperparathyroidism ([facility]) Secondary hyperparathyroidism (of renal origin) documented in this encounter Administered Medications Inactive Administered Medications - up to 3 most recent administrations Medication Order MAR Action Action Date Dose Rate Site calcium carbonate (TUMS) tablet 500 mg (200 mg elemental calcium) 2 Tablet 2 Tablet, oral, ONCE IN DIALYSIS, 1 dose, On Wed10/08/23 at 0645, Routine, DialysisIndications:ESRD (end stage renal disease) ([facility]),Secondary hyperparathyroidism ([facility]) Given 10/08/2023 6:59 EST 2 Tablets epoetin ken (EPOGEN) 20,000 unit/2 mL injection 1,500 Units 1,500 Units, intravenous, ONCE IN DIALYSIS, 1 dose, On Wed10/08/23 at 0645, Routine, DialysisIndications:ESRD (end stage renal disease) ([facility]),Anemia of chronic renal failure, unspecified CKD stage Given 10/08/2023 6:59 EST 1,500 Units heparin injection 9,000 Units 9,000 Units, intravenous, ONCE IN DIALYSIS, 1 dose, On Wed10/08/23 at 0645, Routine, Dialysis, Now x1 bolus 4500 units to be given at the beginning of dialysis 1500 units/hour to be given over the course of dialysis (9000 units total). Stop 1 hour prior to end of treatment. To be administered per Policy [id number].Indications:ESRD (end stage renal disease) ([facility]) Given 10/08/2023 6:57 EST 9,000 Units LiquaCel liquid protein liquid 30 mL 30 mL, oral, ONCE IN DIALYSIS, 1 dose, On Wed10/08/23 at 0645, RoutineIndications:ESRD (end stage renal disease) ([facility]),Hypoalbuminemia Given 10/08/2023 6:59 EST 30 mL documented in this encounter Orders Dialysis Count Last Ordered Date First Orde red Date HEMODIALYSIS 1 10/08/2023 documented in this encounter Care Teams Real Estate Director Relationship Specialty Start Date End Date Ken Greer MD [address] [place] [address] PCP - General 07/07/23 documented as of this encounter
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
--- OUTSIDE RECORDS SUMMARY | 2024-12-05 12:16 | XMS_ITS | Encounter Summary ---
Author Organization [facility] Address [address] [place] [address] Care Team Providers Care Belt Loop Cutter Name Role Phone Ken Greer MD Primary Care Provider [phone] Encounter Details Date Type Department Care Team (Latest Contact Info) Description 10/22/2023 6:45 EST Treatment [facility] [address] [place], [place] [id number] Carlota Jin MD 1 [facility], Level 2 [place] [address] ESRD (end stage renal disease) ([facility]) (Primary Dx); Anemia of chronic renal failure, unspecified CKD stage; Hypoalbuminemia; Secondary hyperparathyroidism ([facility]) Social History Tobacco Use Types Packs/Day [...] - Temperature - - Respiratory Rate 16 10/22/2023 0634 EST Oxygen Saturation - - Inhaled Oxygen Concentration - - Weight 88.1 kg (194 lb 3.6 oz) 10/22/[address] Height - - Body Mass Index 28.68 07/08/2023 0839 EDT documented in this encounter Miscellaneous Notes * Flowsheet Note - Marcela Cox RN - 10/22/2023 1313 EST 10/22/23 1049 Post-Hemodialysis Assessment Total Blood Processed (L) 89.83 Liters On Line Clearance: spKt/V 1.44 spKt/V Dialyzer Clearance Lightly streaked Treatment UFR (ml:kg:hr) 4.9 ml:kg:hr Critline refill Not done Fluid Removed (L) 2.1 L Post-Dialysis Scale Weight 86.4 kg (190 lb 7.6 oz) Wheelchair Weight 0 kg (0 lb) Prosthesis Weight 0 kg (0 lb) Post-Treatment Weight (kg) 86.4 Treatment Weight Change (kg) 1.7 kg Day Target Weight (kg) 86.5 Post Sitting/Lying BP 157/87 Post Sitting/Lying pulse 67 Post Standing BP 147/79 Post Standing Pulse 73 Temp 35.5 ??C (95.9 ??F) Temp src Temporal Post access assessment Bruit present: Yes Thrill Present AVF/AFG Hemostasis achieved Yes Note Patient held Venous for 10mins and Arterial for 15mins with blue clamps Orientation Alert and Oriented x3 Yes Time Yes Place Yes Person Yes Cooperative Yes Disoriented No Discharge Ambulation Methods Ambulatory with assistive device Ambulation device Cane Wrap up items Patient Response to Treatment Tolerated tx well. Removed 2.1L UF goal without difficulty. Comments No issues during tx, no concerns voiced post tx. documented in this encounter Plan of Treatment Upcoming Encounters Date Type Department Care Team (Late st Contact Info) Description 12/06/2024 6:45 EST Treatment [facility] [place] [address] [place] [address] Carlota Jin MD 1 [facility], Level 2 [place] [address] 12/08/2024 6:45 EST Treatment [facility] [place] [address] [place], [place] [phone] Carlota Jin MD 1 [facility], [facility] 2 [place] [phone] 12/11/2024 6:45 EST Treatment [facility] [place] [address] [place], [place] [phone] Carlota Jin MD 1 [facility], [facility] 2 [place] [phone] 12/13/2024 6:45 EST Treatment [facility] [place] [address] [place], [place] [id number] Carlota Jin MD 1 [facility], [facility] 2 [place] [phone] 12/15/2024 6:45 EST Treatment [facility] [place] [address] [place], [place] [phone] Carlota Jin MD 1 [facility], [facility] 2 [place] [phone] 12/18/2024 6:45 EST Treatment [facility] [place] [address] [place], [place] [id number] Carlota Jin MD 1 [facility], [facility] 2 [place] [phone] 12/20/2024 6:45 EST Treatment [facility] [place] [address] [place], [place] [phone] Carlota Jin MD 1 [facility], Level 2 [place] [phone] 12/22/2024 6:45 EST Treatment [facility] [place] [address] [place], [place] [address] Carlota Jin MD 1 [facility], [facility] 2 [place] [phone] 12/25/2024 6:45 EST Treatment [facility] [place] [address] [place], [place] [id number] Carlota Jin MD 1 [facility], [facility] 2 [place] [phone] 12/27/2024 6:45 EST Treatment [facility] [place] [address] [place], [place] [phone] Carlota Jin MD 1 [facility], [facility] 2 [place] [phone] 12/29/2024 6:45 EST Treatment [facility] [address] [place] [address] Carlota Jin MD 1 [facility], [facility] 2 [place] [phone] 01/01/2025 6:45 EDT Treatment [facility] [place] [address] [place], [place] [address] Carlota Jin MD 1 [facility], [facility] 2 [place] [phone] 01/03/2025 6:45 EDT Treatment [facility] [place] [address] [place], [place] [phone] Carlota Jin MD 1 [facility], [facility] 2 [place] [phone] 01/05/2025 6:45 EDT Treatment [facility] [place] [address] [place], [place] [id number] Carlota Jin MD 1 [facility], [facility] 2 [place] [phone] 01/08/2025 6:45 EDT Treatment [facility] [place] [address] [place], [place] [phone] Carlota Jin MD [address] [place] [address], [facility] 2 [place] [phone] 01/10/2025 6:45 EDT Treatment [facility] [place] [address] [place], [place] [phone] Carlota Jin MD [address] [place] [address], [facility] 2 [place] [phone] 01/12/2025 6:45 EDT Treatment [facility] [place] [address] [place], [place] [phone] Carlota Jin MD [address] [place] [address], [facility] 2 [place] [phone] 01/15/2025 6:45 EDT Treatment [facility] [place] [address] [place], [place] [phone] Carlota Jin MD 1 [facility], [facility] 2 [place] [phone] 01/17/2025 6:45 EDT Treatment [facility] [place] [address] [place], [place] [phone] Carlota Jin MD 1 [facility], [facility] 2 [place] [phone] 01/19/2025 6:45 EDT Treatment [facility] [place] [address] [place], [place] [phone] Carlota Jin MD 1 [facility], [facility] 2 [place] [phone] 01/22/2025 6:45 EDT Treatment [facility] [place] [address] [place], [place] [phone] Carlota Jin MD 1 [facility], [facility] 2 [place] [phone] 01/24/2025 6:45 EDT Treatment [facility] [address] [place], [place] [phone] Carlota Jin MD 1 [facility], [facility] 2 [place] [phone] 01/26/2025 6:45 EDT Treatment [facility] [place] [address] [place], [place] [phone] Carlota Jin MD 1 [facility], [facility] 2 [place] [phone] 01/29/2025 6:45 EDT Treatment [facility] [place] [address] [place], [place] [phone] Carlota Jin MD 1 [facility], [facility] 2 [place] [phone] 01/31/2025 6:45 EDT Treatment [facility] [place] [address] [place], [place] [phone] Carlota Jin MD 1 [facility], [facility] 2 [place] [phone] 02/02/2025 6:45 EDT Treatment [facility] [place] [address] [place], [place] [id number] Carlota Jin MD 1 [facility], [facility] 2 [place] [phone] 02/05/2025 6:45 EDT Treatment [facility] [place] [address] [place], [place] [address] Carlota Jin MD 1 [facility], [facility] 2 [place] [phone] 02/07/2025 6:45 EDT Treatment [facility] [place] [address] [place], [place] [phone] Carlota Jin MD 1 [facility], [facility] 2 [place] [phone] 02/09/2025 6:45 EDT Treatment [facility] [place] [address] [place] [id number] Carlota Jin MD 1 [facility], [facility] 2 [place] [phone] 02/12/2025 6:45 EDT Treatment [facility] [place] [address] [place] [address] Carlota Jin MD 1 [facility], [address] [phone] 02/14/2025 6:45 EDT Treatment [facility] [place] [address] [place], [place] [address] Carlota Jin MD 1 [facility], [address] [phone] 02/16/2025 6:45 EDT Treatment [facility] [place] [address] [place], [place] [phone] Carlota Jin MD 1 [facility], [address] [phone] 02/19/2025 6:45 EDT Treatment [facility] [place] [address] [place], [place] [phone] Carlota Jin MD 1 [facility], [address] [phone] 02/21/2025 6:45 EDT Treatment [facility] [place] [address] [place], [place] [phone] Carlota Jin MD 1 [facility], [facility] 2 [place] [phone] documented as of this encounter Procedures Procedure Name Priority Date/Time Associated Diagnosis Comments HEMODIALYSIS Routine 10/22/2023 6:34 EST ESRD (end stage renal disease) ([facility]) documented in this encounter Visit Diagnoses Diagnosis ESRD (end stage renal disease) ([facility])- Primary End stage renal disease Anemia of chronic renal failure, unspecified CKD stage Hypoalbuminemia Other disorders of plasma protein metabolism Secondary hyperparathyroidism ([facility]) Secondary hyperparathyroidism (of renal origin) documented in this encounter Administered Medications Inactive Administered Medications - up to 3 most recent administrations Medication Order MAR Action Action Date Dose Rate Site calcium carbonate (TUMS) tablet 500 mg (200 mg elemental calcium) 2 Tablet 2 Tablet, oral, ONCE IN DIALYSIS, 1 dose, On Wed10/22/23 at 0700, Routine, DialysisIndications:ESRD (end stage renal disease) ([facility]),Secondary hyperparathyroidism ([facility]) Given 10/22/2023 6:53 EST 2 Tablets epoetin ken (EPOGEN) 20,000 unit/2 mL injection 1,500 Units 1,500 Units, intravenous, ONCE IN DIALYSIS, 1 dose, On Wed10/22/23 at 0700, Routine, DialysisIndications:ESRD (end stage renal disease) ([facility]),Anemia of chronic renal failure, unspecified CKD stage Given 10/22/2023 6:53 EST 1,500 Units heparin injection 9,000 Units 9,000 Units, intravenous, ONCE IN DIALYSIS, 1 dose, On Wed10/22/23 at 0700, Routine, Dialysis, Now x1 bolus 4500 units to be given at the beginning of dialysis 1500 units/hour to be given over the course of dialysis (9000 units total). Stop 1 hour prior to end of treatment. To be administered per Policy [id number].Indications:ESRD (end stage renal disease) ([facility]) Given 10/22/2023 6:53 EST 9,000 Units LiquaCel liquid protein liquid 30 mL 30 mL, oral, ONCE IN DIALYSIS, 1 dose, On Wed10/22/23 at 0700, RoutineIndications:ESRD (end stage renal disease) ([facility]),Hypoalbuminemia Given 10/22/2023 6:54 EST 30 mL documented in this encounter Orders Dialysis Count Last Ordered Date First Orde red Date HEMODIALYSIS 1 10/22/2023 documented in this encounter Care Teams Belt Loop Cutter Relationship Specialty Start Date End Date Ken Greer MD [address] [place] [address] PCP - General 07/07/23 documented as of this encounter
--- OUTSIDE RECORDS SUMMARY | 2024-12-05 12:16 | XMS_ITS | Encounter Summary ---
Author Organization [facility] Address [address] [place] [address] Care Team Providers Care Inventory Control Manager Name Role Phone Ken Greer MD Primary Care Provider [phone] Encounter Details Date Type Department Care Team (Late st Contact Info) Description 11/01/2023 Orders Only [facility] [address] [place] [phone] Yoanna Degroot, RN Encounter for therapeutic drug monitoring (Primary Dx); Cellulitis and abscess of foot, except toes [...] Contact Info) Description 12/06/2024 6:45 EST Treatment [facility] [address] [place] [phone] Carlota Jin MD 1 [facility], Level 2 [place] [phone] 12/08/2024 6:45 EST Treatment [facility] [place] [address] [place], [place] [address] Carlota Jin MD 1 [facility], [facility] 2 [place] [phone] 12/11/2024 6:45 EST Treatment [facility] [place] [address] [place], [place] [phone] Carlota Jin MD 1 [facility], [facility] 2 [place] [phone] 12/13/2024 6:45 EST Treatment [facility] [place] [address] [place], [place] [phone] Carlota Jin MD 1 [facility], [facility] 2 [place] [phone] 12/15/2024 6:45 EST Treatment [facility] [place] [address] [place], [place] [id number] Carlota Jin MD 1 [facility], [facility] 2 [place] [phone] 12/18/2024 6:45 EST Treatment [facility] [place] [address] [place], [place] [id number] Carlota Jin MD 1 [facility], [facility] 2 [place] [phone] 12/20/2024 6:45 EST Treatment [facility] [place] [address] [place], [place] [id number] Carlota Jin MD 1 [facility], [facility] 2 [place] [phone] 12/22/2024 6:45 EST Treatment [facility] [place] [address] [place], [place] [id number] Carlota Jin MD 1 [facility], [facility] 2 [place] [phone] 12/25/2024 6:45 EST Treatment [facility] [place] [address] [place], [place] [id number] Carlota Jin MD 1 [facility], [facility] 2 [place] [phone] 12/27/2024 6:45 EST Treatment [facility] [place] [address] [place], [place] [id number] Carlota Jin MD 1 [facility], [facility] 2 [place] [phone] 12/29/2024 6:45 EST Treatment [facility] [address] [place], [place] [id number] Carlota Jin MD 1 [facility], [facility] 2 [place] [phone] 01/01/2025 6:45 EDT Treatment [facility] [address] [place], [place] [id number] Carlota Jin MD 1 [facility], [facility] 2 [place] [phone] 01/03/2025 6:45 EDT Treatment [facility] [place] [address] [place], [place] [id number] Carlota Jin MD 1 [facility], [facility] 2 [place] [phone] 01/05/2025 6:45 EDT Treatment [facility] [place] [address] [place], [place] [id number] Carlota Jin MD 1 [facility], [facility] 2 [place] [phone] 01/08/2025 6:45 EDT Treatment [facility] [place] [address] [place], [place] [id number] Carlota Jin MD [address] [place] [address], [address] [phone] 01/10/2025 6:45 EDT Treatment [facility] [place] [address] [place], [place] [id number] Carlota Jin MD 1 [facility], [facility] 2 [place] [phone] 01/12/2025 6:45 EDT Treatment [facility] [place] [address] [place], [place] [id number] Carlota Jin MD 1 [facility], [facility] 2 [place] [phone] 01/15/2025 6:45 EDT Treatment [facility] [place] [address] [place], [place] [id number] Carlota Jin MD 1 [facility], [facility] 2 [place] [phone] 01/17/2025 6:45 EDT Treatment [facility] [place] [address] [place], [place] [address] Carlota Jin MD 1 [facility], [facility] 2 [place] [phone] 01/19/2025 6:45 EDT Treatment [facility] [place] [address] [place], [place] [id number] Carlota Jin MD 1 [facility], [facility] 2 [place] [phone] 01/22/2025 6:45 EDT Treatment [facility] [place] [address] [place] [address] Carlota iJn MD 1 [facility], [facility] 2 [place] [phone] 01/24/2025 6:45 EDT Treatment [facility] [address] [place] [address] Carlota Jin MD 1 [facility], [facility] 2 [place] [phone] 01/26/2025 6:45 EDT Treatment [facility] [address] [place], [place] [id number] Carlota Jin MD 1 [facility], [facility] 2 [place] [phone] 01/29/2025 6:45 EDT Treatment [facility] [place] [address] [place], [place] [id number] Carlota Jin MD 1 [facility], [facility] 2 [place] [phone] 01/31/2025 6:45 EDT Treatment [facility] [place] [address] [place], [place] [id number] Carlota Jin MD 1 [facility], [facility] 2 [place] [phone] 02/02/2025 6:45 EDT Treatment [facility] [place] [address] [place] [address] Carlota Jin MD 1 [facility], [facility] 2 [place] [phone] 02/05/2025 6:45 EDT Treatment [facility] [place] [address] [place], [place] [id number] Carlota Jin MD 1 [facility], [facility] 2 [place] [phone] 02/07/2025 6:45 EDT Treatment [facility] [place] [address] [place], [place] [id number] Carlota Jin MD 1 [facility], [facility] 2 [place] [phone] 02/09/2025 6:45 EDT Treatment [facility] [place] [address] [place] [address] Carlota Jin MD 1 [facility], [facility] 2 [place] [phone] 02/12/2025 6:45 EDT Treatment [facility] [place] [address] [place], [place] [id number] Carlota Jin MD 1 [facility], [facility] 2 [place] [phone] 02/14/2025 6:45 EDT Treatment [facility] [place] [address] [place] [address] Carlota Jin MD 1 [facility], [address] [phone] 02/16/2025 6:45 EDT Treatment [facility] [place] [address] [place], [place] [id number] Carloat Jin MD 1 [facility], [address] [phone] 02/19/2025 6:45 EDT Treatment [facility] [place] [address] [place] [address] Carlota Jin MD 1 [facility], [facility] 2 [place] [phone] 02/21/2025 6:45 EDT Treatment [facility] [place] [address] [place], [place] [id number] Carlota Jin MD 1 [facility], [facility] 2 [place] [phone] documented as of this encounter Visit Diagnoses Diagnosis Encounter for therapeutic drug monitoring- Primary Cellulitis and abscess of foot, except toes documented in this encounter Care Teams Inventory Control Manager Relationship Specialty Start Date End Date Ken Greer MD [address] [place] [address] PCP - General 07/07/23 documented as of this encounter
--- OUTSIDE RECORDS SUMMARY | 2024-12-05 12:16 | XMS_ITS | Encounter Summary ---
Author Organization [facility] Address [address] [place] [address] Care Team Providers Care Finished Yarn Examiner Name Role Phone Ken Greer MD Primary Care Provider [phone] Encounter Details Date Type Department Care Team (Latest Contact Info) Description 10/20/2023 6:45 EST Treatment [facility] [address] [place], [place] [id number] Carlota Jin MD 1 [facility], Level [address] [place] [address] ESRD (end stage renal disease) ([facility]) (Primary Dx); Anemia of chronic renal failure, unspecified CKD stage; Hypoalbuminemia; Secondary hyperparathyroidism ([facility]) Social History Tobacco [...] - Temperature - - Respiratory Rate 16 10/20/2023 0628 EST Oxygen Saturation - - Inhaled Oxygen Concentration - - Weight 90.3 kg (199 lb 1.2 oz) 10/20/[address] Height - - Body Mass Index 29.4 07/08/2023 0839 EDT documented in this encounter Miscellaneous Notes * Flowsheet Note - Marcela Cox RN - 10/20/2023 1327 EST 10/20/23 1055 Post-Hemodialysis Assessment Total Blood Processed (L) 89.05 Liters On Line Clearance: spKt/V 1.44 spKt/V Dialyzer Clearance Lightly streaked Treatment UFR (ml:kg:hr) 0 ml:kg:hr Critline refill Not done Fluid Removed (L) 4 L Post-Dialysis Scale Weight 86.3 kg (190 lb 4.1 oz) Wheelchair Weight 0 kg (0 lb) Prosthesis Weight 0 kg (0 lb) Post-Treatment Weight (kg) 86.3 Treatment Weight Change (kg) 4 kg Day Target Weight (kg) 86.8 Post Sitting/Lying BP 131/73 Post Sitting/Lying pulse 63 Post Standing BP 111/64 Post Standing Pulse 70 Temp 35.5 ??C (95.9 ??F) Temp src Temporal Post access assessment Bruit present: Yes AVF/AFG Hemostasis achieved Yes Note 10 minute [...] Dialysis Rounding - Skye Gomez NP - 10/20/2023 0662 EST Dialysis Provider's Routine Assessment Gerson Bruner was seen and examined as appropriate during Dialysis. Pertinent lab results were reviewed. Changes since last visit: None Changes to current prescriptions/orders: None Stable on dialysis Skye Gomez NP documented in this encounter Plan of Treatment Upcoming Encounters Date Type Department Care Team (Late st Contact Info) Description 12/06/2024 6:45 EST Treatment [facility] [place] [address] [place], [place] [id number] Carlota Jin MD 1 [facility], [facility] 2 [place] [phone] 12/08/2024 6:45 EST Treatment [facility] [place] [address] [place], [place] [id number] Carlota Jin MD 1 [facility], [facility] 2 [place] [phone] 12/11/2024 6:45 EST Treatment [facility] [place] [address] [place], [place] [id number] Carlota Jin MD 1 [facility], [facility] 2 [place] [phone] 12/13/2024 6:45 EST Treatment [facility] [place] [address] [place], [place] [id number] Carlota Jin MD 1 [facility], [facility] 2 [place] [phone] 12/15/2024 6:45 EST Treatment [facility] [address] [place], [place] [id number] Carlota Jin MD 1 [facility], [facility] 2 [place] [phone] 12/18/2024 6:45 EST Treatment [facility] [place] [address] [place], [place] [id number] Carlota Jin MD 1 [facility], Level [address] [place] [phone] 12/20/2024 6:45 EST Treatment [facility] [place] [address] [place], [place] [address] Carlota Jin MD 1 [facility], [facility] 2 [place] [phone] 12/22/2024 6:45 EST Treatment [facility] [address] [place], [place] [id number] Carlota Jin MD 1 [facility], [facility] 2 [place] [phone] 12/25/2024 6:45 EST Treatment [facility] [place] [address] [place], [place] [id number] Carlota Jin MD 1 [facility], [facility] 2 [place] [phone] 12/27/2024 6:45 EST Treatment [facility] [address] [place] [address] Carlota Jin MD 1 [facility], [facility] 2 [place] [phone] 12/29/2024 6:45 EST Treatment [facility] [place] [address] [place], [place] [address] Carlota Jin MD 1 [facility], [facility] 2 [place] [phone] 01/01/2025 6:45 EDT Treatment [facility] [address] [place], [place] [id number] Carlota Jin MD 1 [facility], [facility] 2 [place] [phone] 01/03/2025 6:45 EDT Treatment [facility] [place] [address] [place], [place] [id number] Carlota Jin MD [address] [place] [address], [facility] 2 [place] [phone] 01/05/2025 6:45 EDT Treatment [facility] [place] [address] [place], [place] [id number] Carlota Jin MD [address] [place] [address], [address] [phone] 01/08/2025 6:45 EDT Treatment [facility] [address] [place], [place] [id number] Carlota Jin MD [address] [place] [address], [facility] 2 [place] [phone] 01/10/2025 6:45 EDT Treatment [facility] [place] [address] [place], [place] [id number] Carlota Jin MD 1 [facility], [facility] 2 [place] [phone] 01/12/2025 6:45 EDT Treatment [facility] [place] [address] [place], [place] [id number] Carlota Jin MD 1 [facility], [facility] 2 [place] [phone] 01/15/2025 6:45 EDT Treatment [facility] [place] [address] [place], [place] [id number] Carlota Jin MD 1 [facility], [facility] 2 [place] [phone] 01/17/2025 6:45 EDT Treatment [facility] [place] [address] [place], [place] [id number] Carlota Jin MD 1 [facility], [facility] 2 [place] [phone] 01/19/2025 6:45 EDT Treatment [facility] [place] [address] [place] [address] Carlota Jin MD 1 [facility], [facility] 2 [place] [phone] 01/22/2025 6:45 EDT Treatment [facility] [place] [address] [place] [address] Carlota Jin MD 1 [facility], [facility] 2 [place] [phone] 01/24/2025 6:45 EDT Treatment [facility] [address] [place], [place] [id number] Carlota Jin MD 1 [facility], [facility] 2 [place] [phone] 01/26/2025 6:45 EDT Treatment [facility] [place] [address] [place], [place] [id number] Carlota Jin MD 1 [facility], [facility] 2 [place] [phone] 01/29/2025 6:45 EDT Treatment [facility] [address] [place], [place] [id number] Carlota Jin MD 1 [facility], [facility] 2 [place] [phone] 01/31/2025 6:45 EDT Treatment [facility] [address] [place], [place] [id number] Carlota Jin MD 1 [facility], [facility] 2 [place] [phone] 02/02/2025 6:45 EDT Treatment [facility] [place] [address] [place], [place] [id number] Carlota Jin MD 1 [facility], [facility] 2 [place] [phone] 02/05/2025 6:45 EDT Treatment [facility] [place] [address] [place], [place] [id number] Carlota Jin MD 1 [facility], [facility] 2 [place] [phone] 02/07/2025 6:45 EDT Treatment [facility] [address] [place], [place] [id number] Carlota Jin MD 1 [facility], [facility] 2 [place] [phone] 02/09/2025 6:45 EDT Treatment [facility] [place] [address] [place] [address] Carlota Jin MD 1 [facility], [facility] 2 [place] [phone] 02/12/2025 6:45 EDT Treatment [facility] [place] [address] [place], [place] [id number] Carlota Jin MD 1 [facility], [address] [phone] 02/14/2025 6:45 EDT Treatment [facility] [address] [place], [place] [address] Carlota Jin MD 1 [facility], [address] [phone] 02/16/2025 6:45 EDT Treatment [facility] [place] [address] [place], [place] [phone] Carlota Jni MD 1 [facility], [facility] 2 [place] [phone] 02/19/2025 6:45 EDT Treatment [facility] [address] [place], [place] [id number] Carlota Jin MD 1 [facility], [facility] 2 [place] [phone] 02/21/2025 6:45 EDT Treatment [facility] [address] [place], [place] [phone] Carlota Jin MD 1 [facility], Level [address] [place] [address] documented as of this encounter Procedures Procedure Name Priority Date/Time Associated Diagnosis Comments COMPLETE BLOOD COUNT Routine 10/20/2023 6:34 EST ESRD (end stage renal disease) ([facility]) HEMODIALYSIS Routine 10/20/2023 6:28 EST ESRD (end stage renal disease) ([facility]) documented in this encounter Results * (ABNORMAL) COMPLETE BLOOD COUNT (10/20/2023 6:34 EST) WBC 8.97 4.00 - 10.40 K/cmm 10/20/2023 21:15 [facility] RBC 3.69(L) 4.36 - 5.78 M/cmm 10/20/2023 21:15 [facility] Hemoglobin 11.5(L) 13.8 - 17.3 g/dL 10/20/2023 21:15 [facility] HCT 35.0(L) 39.5 - 50.2 % 10/20/2023 21:15 [facility] MCV 95 81 - 95 fL 10/20/2023 21:15 [facility] MCH 31.2 27.6 - 33.0 pg 10/20/2023 21:15 [facility] MCHC 32.9 32.8 - 36.4 g/dL 10/20/2023 21:15 [facility] RDW-CV 12.6 <14.2 % 10/20/2023 21:15 [facility] RDW-SD 43.7 <46.0 fl 10/20/2023 21:15 [facility] PLT 266 141 - 377 K/cmm 10/20/2023 21:15 EST [facility] MPV 12.2 9.5 - 12.7 fL 10/20/2023 21:15 EST [facility] Blood VENOUS BLOOD / Unknown Venipuncture / Unknown 10/20/2023 6:34 EST 10/20/2023 6:34 EST Skye Gomez NP HEMATOLOGY & PF4 ORDERABLES Final Result [facility] [address] [place] [address] documented in this encounter Visit Diagnoses Diagnosis ESRD (end stage renal disease) ([facility])- Primary End stage renal disease Anemia of chronic renal failure, unspecified CKD stage Hypoalbuminemia Other disorders of plasma protein metabolism Secondary hyperparathyroidism ([facility]) Secondary hyperparathyroidism (of renal origin) documented in this encounter Administered Medications Inactive Administered Medications - up to 3 most recent administrations Medication Order MAR Action Action Date Dose Rate Site calcium carbonate (TUMS) tablet 500 mg (200 mg elemental calcium) 2 Tablet 2 Tablet, oral, ONCE IN DIALYSIS, 1 dose, On Wed10/20/23 at 0645, Routine, DialysisIndications:ESRD (end stage renal disease) ([facility]),Secondary hyperparathyroidism ([facility]) Given 10/20/2023 7:06 EST 2 Tablets epoetin ken (EPOGEN) 20,000 unit/2 mL injection 1,500 Units 1,500 Units, intravenous, ONCE IN DIALYSIS, 1 dose, On Wed10/20/23 at 0645, Routine, DialysisIndications:ESRD (end stage renal disease) ([facility]),Anemia of chronic renal failure, unspecified CKD stage Given 10/20/2023 7:06 EST 1,500 Units heparin injection 9,000 Units 9,000 Units, intravenous, ONCE IN DIALYSIS, 1 dose, On Wed10/20/23 at 0645, Routine, Dialysis, Now x1 bolus 4500 units to be given at the beginning of dialysis 1500 units/hour to be given over the course of dialysis (9000 units total). Stop 1 hour prior to end of treatment. To be administered per Policy [id number].Indications:ESRD (end stage renal disease) ([facility]) Given 10/20/2023 7:05 EST 9,000 Units LiquaCel liquid protein liquid 30 mL 30 mL, oral, ONCE IN DIALYSIS, 1 dose, On Wed10/20/23 at 0645, RoutineIndications:ESRD (end stage renal disease) ([facility]),Hypoalbuminemia Given 10/20/2023 7:06 EST 30 mL documented in this encounter Orders Dialysis Count Last Ordered Date First Orde red Date HEMODIALYSIS 1 10/20/2023 documented in this encounter Care Teams Finished Yarn Examiner Relationship Specialty Start Date End Date Ken Greer MD [address] [place] [address] PCP - General 07/07/23 documented as of this encounter
--- OUTSIDE RECORDS SUMMARY | 2024-12-05 12:16 | XMS_ITS | Encounter Summary ---
Author Organization [facility] Address [address] [place] [address] Care Team Providers Care Van Loader Name Role Phone Ken Greer MD Primary Care Provider [phone] Encounter Details Date Type Department Care Team (Latest Contact Info) Description 10/17/2023 6:45 EST Treatment [facility] [address] [facility] [place], [place] [id number] ESRD (end stage renal disease) ([facility]) (Primary Dx); Anemia of chronic renal failure, unspecified CKD stage; Hypoalbuminemia; Secondary hyperparathyroidism ([facility]) Social History Tobacco Use Types Packs/Day [...] - Temperature - - Respiratory Rate 16 10/17/2023 0622 EST Oxygen Saturation - - Inhaled Oxygen Concentration - - Weight 89.2 kg (196 lb 10.4 oz) 10/17/2023 0622 EST Height - - Body Mass Index 29.04 07/08/2023 0839 EDT documented in this encounter Miscellaneous Notes * Flowsheet Note - Marcela Cox RN - 10/17/2023 1247 EST 10/17/23 1036 Post-Hemodialysis Assessment Total Blood Processed (L) 89.56 Liters On Line Clearance: spKt/V 1.46 spKt/V Dialyzer Clearance Lightly streaked Treatment UFR (ml:kg:hr) 8.07 ml:kg:hr Fluid Removed (L) 3.2 L Post-Dialysis Scale Weight 86.4 kg (190 lb 7.6 oz) Wheelchair Weight 0 kg (0 lb) Prosthesis Weight 0 kg (0 lb) Post-Treatment Weight (kg) 86.4 Treatment Weight Change (kg) 2.8 kg Day Target Weight (kg) 86.5 Post Sitting/Lying BP 137/73 Post Sitting/Lying pulse 68 Post Standing BP 135/72 Post Standing Pulse 69 Temp 35.6 ??C (96.1 ??F) Temp src Temporal Post access assessment AVF/AFG Hemostasis achieved Yes Note 10 minute hold Orientation Alert and Oriented x3 Yes Time Yes Place Yes Person Yes Cooperative Yes Disoriented No Discharge Ambulation Methods Ambulatory with assistive device Ambulation device Cane (walking stick) Wrap up items Patient Response to Treatment Tolerated tx well. Removed 3.2L UF goal without difficulty. Comments No issues during tx, no concerns voiced post tx. documented in this encounter Plan of Treatment Upcoming Encounters Date Type Department Care Team (Late st Contact Info) Description 12/06/2024 6:45 EST Treatment [facility] [address] [place] [id number] Carlota Jin MD [address] [place] [address], [facility] [address] [place] [phone] 12/08/2024 6:45 EST Treatment [facility] [address] [place] [id number] Carlota Jin MD [facility] [address] [place] [phone] 12/11/2024 6:45 EST Treatment [facility] [place] [address] [place], [place] [id number] Carlota Jin MD 1 [facility], [facility] [address] [place] [phone] 12/13/2024 6:45 EST Treatment [facility] [place] [address] [place], [place] [id number] Carlota Jin MD 1 [facility], [facility] [address] [place] [phone] 12/15/2024 6:45 EST Treatment [facility] [place] [address] [place], [place] [id number] Carlota Jin MD 1 [facility], [facility] [address] [place] [phone] 12/18/2024 6:45 EST Treatment [facility] [place] [address] [place], [place] [id number] Carlota Jin MD 1 [facility], [facility] [address] [place] [phone] 12/20/2024 6:45 EST Treatment [facility] [place] [address] [place], [place] [id number] Carlota Jin MD 1 [facility], [facility] [address] [place] [phone] 12/22/2024 6:45 EST Treatment [facility] [place] [address] [place], [place] [id number] Carlota Jin MD 1 [facility], [facility] [address] [place] [phone] 12/25/2024 6:45 EST Treatment [facility] [place] [address] [place], [place] [id number] Carlota Jin MD 1 [facility], [facility] [address] [place] [phone] 12/27/2024 6:45 EST Treatment [facility] [place] [address] [place], [place] [id number] Carlota Jin MD 1 [facility], [address] [phone] 12/29/2024 6:45 EST Treatment [facility] [place] [address] [place], [place] [id number] Carlota Jin MD 1 [facility], [address] [phone] 01/01/2025 6:45 EDT Treatment [facility] [place] [address] [place], [place] [id number] Carlota Jin MD 1 [facility], [facility] [address] [place] [phone] 01/03/2025 6:45 EDT Treatment [facility] [place] [address] [place], [place] [id number] Carlota Jin MD 1 [facility], [facility] [address] [place] [phone] 01/05/2025 6:45 EDT Treatment [facility] [place] [address] [place], [place] [id number] Carlota Jin MD 1 [facility], [facility] [address] [place] [phone] 01/08/2025 6:45 EDT Treatment [facility] [place] [address] [place], [place] [id number] Carlota Jin MD 1 [facility], [facility] [address] [place] [phone] 01/10/2025 6:45 EDT Treatment [facility] [place] [address] [place], [place] [id number] Carlota Jin MD [address] [place] [address], [address] [phone] 01/12/2025 6:45 EDT Treatment [facility] [place] [address] [place], [place] [id number] Carlota Jin MD 1 [facility], [facility] [address] [place] [phone] 01/15/2025 6:45 EDT Treatment [facility] [place] [address] [place], [place] [id number] Carlota Jin MD 1 [facility], [facility] [address] [place] [phone] 01/17/2025 6:45 EDT Treatment [facility] [place] [address] [place], [place] [id number] Carlota Jin MD 1 [facility], [facility] 2 [place] [phone] 01/19/2025 6:45 EDT Treatment [facility] [place] [address] [place] [address] Carlota Jin MD 1 [facility], [address] [phone] 01/22/2025 6:45 EDT Treatment [facility] [place] [address] [place], [place] [id number] Carlota Jin MD 1 [facility], [address] [phone] 01/24/2025 6:45 EDT Treatment [facility] [place] [address] [place] [address] Carlota Jin MD 1 [facility], [address] [phone] 01/26/2025 6:45 EDT Treatment [facility] [place] [address] [place], [place] [id number] Carlota Jin MD 1 [facility], [address] [phone] 01/29/2025 6:45 EDT Treatment [facility] [place] [address] [place], [place] [id number] Carlota Jin MD 1 [facility], [facility] 2 [place] [phone] 01/31/2025 6:45 EDT Treatment [facility] [place] [address] [place], [place] [id number] Carlota Jin MD 1 [facility], [facility] 2 [place] [phone] 02/02/2025 6:45 EDT Treatment [facility] [place] [address] [place], [place] [id number] Carlota Jin MD 1 [facility], [facility] 2 [place] [phone] 02/05/2025 6:45 EDT Treatment [facility] [place] [address] [place], [place] [id number] Carlota Jin MD 1 [facility], [facility] 2 [place] [phone] 02/07/2025 6:45 EDT Treatment [facility] [place] [address] [place], [place] [id number] Carlota Jin MD 1 [facility], [facility] 2 [place] [phone] 02/09/2025 6:45 EDT Treatment [facility] [address] [place], [place] [id number] Carlota Jin MD 1 [facility], [facility] 2 [place] [phone] 02/12/2025 6:45 EDT Treatment [facility] [place] [address] [place], [place] [id number] Carlota Jin MD [address] [phone] 02/14/2025 6:45 EDT Treatment [facility] [place] [address] [place], [place] [id number] Carlota Jin MD [address] [place] [phone] 02/16/2025 6:45 EDT Treatment [facility] [place] [address] [place], [place] [id number] Carlota Jin MD [address] [place] [phone] 02/19/2025 6:45 EDT Treatment [facility] [place] [address] [place], [place] [id number] Carlota Jin MD [address] [place] [phone] 02/21/2025 6:45 EDT Treatment [facility] [place] [address] [place], [place] [id number] Carlota Jin MD [address] [phone] documented as of this encounter Procedures Procedure Name Priority Date/Time Associated Diagnosis Comments HEMODIALYSIS Routine 10/17/2023 6:22 EST ESRD (end stage renal disease) ([facility]) documented in this encounter Visit Diagnoses Diagnosis ESRD (end stage renal disease) ([facility])- Primary End stage renal disease Anemia of chronic renal failure, unspecified CKD stage Hypoalbuminemia Other disorders of plasma protein metabolism Secondary hyperparathyroidism ([facility]) Secondary hyperparathyroidism (of renal origin) documented in this encounter Administered Medications Inactive Administered Medications - up to 3 most recent administrations Medication Order MAR Action Action Date Dose Rate Site acetaminophen (TYLENOL) tablet 650 mg 650 mg, oral, EVERY 4 HOURS PRN, Starting on 10/17/23 at 0623, Until 10/17/23 at 1447, Pain, Routine, DialysisIndications:ESRD (end stage renal disease) ([facility]) Given 10/17/2023 6:49 EST 650 mg calcium carbonate (TUMS) tablet 500 mg (200 mg elemental calcium) 2 Tablet 2 Tablet, oral, ONCE IN DIALYSIS, 1 dose, On 10/17/23 at 0645, Routine, DialysisIndications:ESRD (end stage renal disease) ([facility]),Secondary hyperparathyroidism ([facility]) Given 10/17/2023 6:49 EST 2 Tablets epoetin ken (EPOGEN) 20,000 unit/2 mL injection 1,500 Units 1,500 Units, intravenous, ONCE IN DIALYSIS, 1 dose, On 10/17/23 at 0645, Routine, DialysisIndications:ESRD (end stage renal disease) ([facility]),Anemia of chronic renal failure, unspecified CKD stage Given 10/17/2023 6:49 EST 1,500 Units heparin injection 9,000 Units 9,000 Units, intravenous, ONCE IN DIALYSIS, 1 dose, On 10/17/23 at 0645, Routine, Dialysis, Now x1 bolus 4500 units to be given at the beginning of dialysis 1500 units/hour to be given over the course of dialysis (9000 units total). Stop 1 hour prior to end of treatment. To be administered per Policy [id number].Indications:ESRD (end stage renal disease) ([facility]) Given 10/17/2023 6:49 EST 9,000 Units LiquaCel liquid protein liquid 30 mL 30 mL, oral, ONCE IN DIALYSIS, 1 dose, On 10/17/23 at 0645, RoutineIndications:ESRD (end stage renal disease) ([facility]),Hypoalbuminemia Given 10/17/2023 6:49 EST 30 mL documented in this encounter Orders Dialysis Count Last Ordered Date First Orde red Date HEMODIALYSIS 1 10/17/2023 documented in this encounter Care Teams Van Loader Relationship Specialty Start Date End Date Ken Greer MD [address] [facility] [place] [address] PCP - General 07/07/23 documented as of this encounter
--- OUTSIDE RECORDS SUMMARY | 2024-12-05 12:16 | XMS_ITS | Encounter Summary ---
Author Organization [facility] Address [address] [place] [address] Care Team Providers Care [employer] Supervisor Name Role Phone Ken Greer MD Primary Care Provider [phone] Encounter Details Date Type Department Care Team (Latest Contact Info) Description 10/24/2023 6:45 EST Treatment [facility] [address] [place], [place] [id number] ESRD (end stage renal disease) ([facility]) (Primary Dx); Anemia of chronic renal failure, unspecified CKD stage; Hypoalbuminemia; Secondary hyperparathyroidism ([facility]) Social History Tobacco Use Types Packs/Day [...] - Temperature - - Respiratory Rate 16 10/24/2023 0639 EST Oxygen Saturation - - Inhaled Oxygen Concentration - - Weight 88.2 kg (194 lb 7.1 oz) 10/24/[address] Height - - Body Mass Index 28.71 07/08/2023 0839 EDT documented in this encounter Miscellaneous Notes * Flowsheet Note - Melissa Crespo RN - 10/24/2023 1400 EST 10/24/23 1055 Post-Hemodialysis Assessment Total Blood Processed (L) 91.64 Liters On Line Clearance: spKt/V 1.43 spKt/V Dialyzer Clearance Lightly streaked Treatment UFR (ml:kg:hr) 8.16 ml:kg:hr Final Critline Profile (%/hr) -1.52 Final Profile Profile A Critline refill Negative (34.2/34.0) Fluid Removed (L) 2.96 L Post-Dialysis Scale Weight 85.4 kg (188 lb 4.4 oz) Wheelchair Weight 0 kg (0 lb) Prosthesis Weight 0 kg (0 lb) Post-Treatment Weight (kg) 85.4 Treatment Weight Change (kg) 2.8 kg Day Target Weight (kg) 85.7 Post Sitting/Lying BP 134/74 Post Sitting/Lying pulse 64 Post Standing BP 130/73 Post Standing Pulse 69 Temp 35.6 ??C (96.1 ??F) Temp src Temporal Post access assessment AVF/AFG Hemostasis achieved Yes Note 10 minute hold Orientation Alert and Oriented x3 Yes Time Yes Place Yes Person Yes Cooperative Yes Disoriented No Discharge Ambulation Methods Ambulatory with assistive device Ambulation device Other (Comment) (walking stick) Wrap up items Patient Response to Treatment Tolerated tx. Removed 3000 UF goal. Cramped at very end of tx. Relieved with rinseback. Critline shows Neg Refill. Comments No concerns voiced post tx.Stable upon DC from unit. documented in this encounter Plan of Treatment Upcoming Encounters Date Type Department Care Team (Late st Contact Info) Description 12/06/2024 6:45 EST Treatment [facility] [place] [address] [place] [id number] Carlota Jin MD [address] [facility], Level [address] [place] [phone] 12/08/2024 6:45 EST Treatment [facility] [place] [address] [place] [address] Carlota Jin MD [address] [facility], [facility] 2 [place] [phone] 12/11/2024 6:45 EST Treatment [facility] [place] [address] [place], [place] [id number] Carlota Jin MD [address] [facility], [facility] 2 [place] [phone] 12/13/2024 6:45 EST Treatment [facility] [place] [address] [place], [place] [id number] Carlota Jin MD 1 [facility], [facility] 2 [place] [phone] 12/15/2024 6:45 EST Treatment [facility] [place] [address] [place], [place] [id number] Carlota Jin MD 1 [facility], [facility] 2 [place] [phone] 12/18/2024 6:45 EST Treatment [facility] [place] [address] [place], [place] [id number] Carlota Jin MD [address] [facility], [facility] 2 [place] [phone] 12/20/2024 6:45 EST Treatment [facility] [place] [address] [place], [place] [phone] Carlota Jin MD [address] [facility], [facility] 2 [place] [phone] 12/22/2024 6:45 EST Treatment [facility] [place] [address] [place], [place] [address] Carlota Jin MD 1 [facility], [facility] 2 [place] [phone] 12/25/2024 6:45 EST Treatment [facility] [place] [address] [place] [address] Carlota Jin MD 1 [facility], [facility] 2 [place] [phone] 12/27/2024 6:45 EST Treatment [facility] [place] [address] [place], [place] [address] [phone] Carlota Jin MD 1 [facility], [facility] 2 [place] [phone] 12/29/2024 6:45 EST Treatment [facility] [place] [address] [place] [address] Carlota Jin MD 1 [facility], [facility] 2 [place] [phone] 01/01/2025 6:45 EDT Treatment [facility] [place] [address] [place], [place] [id number] Carlota Jin MD 1 [facility], [facility] 2 [place] [phone] 01/03/2025 6:45 EDT Treatment [facility] [place] [address] [place], [place] [address] Carlota Jin MD 1 [facility], [address] [phone] 01/05/2025 6:45 EDT Treatment [facility] [place] [address] [place], [place] [address] [phone] Carlota Jin MD 1 [facility], [address] [phone] 01/08/2025 6:45 EDT Treatment [facility] [place] [address] [place], [place] [address] Carlota Jin MD 1 [facility], [address] [phone] 01/10/2025 6:45 EDT Treatment [facility] [place] [address] [place] [address] Carlota Jin MD 1 [facility], [address] [phone] 01/12/2025 6:45 EDT Treatment [facility] [place] [address] [place], [place] [id number] Carlota Jin MD [address] [phone] 01/15/2025 6:45 EDT Treatment [facility] [place] [address] [place], [place] [address] Carlota Jin MD 1 [facility], [address] [phone] 01/17/2025 6:45 EDT Treatment [facility] [place] [address] [place], [place] [id number] Carlota Jin MD 1 [facility], [facility] 2 [place] [phone] 01/19/2025 6:45 EDT Treatment [facility] [place] [address] [place], [place] [id number] Carlota Jin MD 1 [facility], [facility] 2 [place] [phone] 01/22/2025 6:45 EDT Treatment [facility] [place] [address] [place], [place] [phone] Carlota Jin MD 1 [facility], [facility] 2 [place] [phone] 01/24/2025 6:45 EDT Treatment [facility] [place] [address] [place], [place] [id number] Carlota Jin MD 1 [facility], [facility] 2 [place] [phone] 01/26/2025 6:45 EDT Treatment [facility] [place] [address] [place], [place] [id number] Carlota Jin MD 1 [facility], [facility] 2 [place] [phone] 01/29/2025 6:45 EDT Treatment [facility] [place] [address] [place], [place] [address] Carlota Jin MD 1 [facility], [facility] 2 [place] [phone] 01/31/2025 6:45 EDT Treatment [facility] [place] [address] [place], [place] [id number] Carlota Jin MD 1 [facility], [address] [phone] 02/02/2025 6:45 EDT Treatment [facility] [place] [address] [place], [place] [phone] Carlota Jin MD 1 [facility], [address] [phone] 02/05/2025 6:45 EDT Treatment [facility] [place] [address] [place], [place] [phone] Carlota Jin MD 1 [facility], [address] [phone] 02/07/2025 6:45 EDT Treatment [facility] [place] [address] [place], [place] [address] Carlota Jin MD 1 [facility], [facility] 2 [place] [phone] 02/09/2025 6:45 EDT Treatment [facility] [place] [address] [place], [place] [phone] Carlota Jin MD 1 [facility], [facility] 2 [place] [phone] 02/12/2025 6:45 EDT Treatment [facility] [place] [address] [place], [place] [address] Carlota Jin MD [address] [facility], [facility] 2 [place] [phone] 02/14/2025 6:45 EDT Treatment [facility] [place] [address] [place], [place] [id number] Carlota Jin MD 1 [facility], [facility] 2 [place] [phone] 02/16/2025 6:45 EDT Treatment [facility] [place] [address] [place], [place] [address] Carlota Jin MD 1 [facility], [facility] 2 [place] [phone] 02/19/2025 6:45 EDT Treatment [facility] [place] [address] [place] [address] Carlota Jin MD [address] [facility], [facility] 2 [place] [phone] 02/21/2025 6:45 EDT Treatment [facility] [place] [address] [place], [place] [address] Carlota Jin MD 1 [facility], [facility] 2 [place] [phone] documented as of this encounter Procedures Procedure Name Priority Date/Time Associated Diagnosis Comments HEMODIALYSIS Routine 10/24/2023 6:39 EST ESRD (end stage renal disease) ([facility]) documented in this encounter Visit Diagnoses Diagnosis ESRD (end stage renal disease) ([facility])- Primary End stage renal disease Anemia of chronic renal failure, unspecified CKD stage Hypoalbuminemia Other disorders of plasma protein metabolism Secondary hyperparathyroidism ([facility]) Secondary hyperparathyroidism (of renal origin) documented in this encounter Administered Medications Inactive Administered Medications - up to 3 most recent administrations Medication Order MAR Action Action Date Dose Rate Site calcium carbonate (TUMS) tablet 500 mg (200 mg elemental calcium) 2 Tablet 2 Tablet, oral, ONCE IN DIALYSIS, 1 dose, On 10/24/23 at 0700, Routine, DialysisIndications:ESRD (end stage renal disease) ([facility]),Secondary hyperparathyroidism ([facility]) Given 10/24/2023 7:22 EST 2 Tablets epoetin ken (EPOGEN) 20,000 unit/2 mL injection 1,000 Units 1,000 Units, intravenous, ONCE IN DIALYSIS, 1 dose, On 10/24/23 at 0700, Routine, DialysisIndications:ESRD (end stage renal disease) ([facility]),Anemia of chronic renal failure, unspecified CKD stage Given 10/24/2023 7:23 EST 1,000 Units heparin injection 9,000 Units 9,000 Units, intravenous, ONCE IN DIALYSIS, 1 dose, On 10/24/23 at 0700, Routine, Dialysis, Now x1 bolus 4500 units to be given at the beginning of dialysis 1500 units/hour to be given over the course of dialysis (9000 units total). Stop 1 hour prior to end of treatment. To be administered per Policy [id number].Indications:ESRD (end stage renal disease) ([facility]) Given 10/24/2023 6:54 EST 9,000 Units LiquaCel liquid protein liquid 30 mL 30 mL, oral, ONCE IN DIALYSIS, 1 dose, On 10/24/23 at 0700, RoutineIndications:ESRD (end stage renal disease) ([facility]),Hypoalbuminemia Given 10/24/2023 7:22 EST 30 mL documented in this encounter Orders Dialysis Count Last Ordered Date First Orde red Date HEMODIALYSIS 1 10/24/2023 documented in this encounter Care Teams [employer] Supervisor Relationship Specialty Start Date End Date Ken Greer MD Mohit ABARCASAN [facility] [place] [address] PCP - General 07/07/23 documented as of this encounter
--- OUTSIDE RECORDS SUMMARY | 2024-12-05 12:16 | XMS_ITS | Encounter Summary ---
Author Organization [facility] Address [address] [place] [address] Care Team Providers Care Business Operations Specialist Name Role Phone Ken Greer MD Primary Care Provider [phone] Encounter Details Date Type Department Care Team (Latest Contact Info) Description 10/13/2023 6:45 EST Treatment [facility] [address], [place] [phone] Carlota Jin MD 1 [facility], Level [address] [place] [address] ESRD (end stage renal disease) ([facility]) (Primary Dx); Anemia of chronic renal failure, unspecified CKD stage; Hypoalbuminemia; Secondary hyperparathyroidism ([facility]) Social History Tobacco Use Types [...] - Temperature - - Respiratory Rate 16 10/13/2023 0625 EST Oxygen Saturation - - Inhaled Oxygen Concentration - - Weight 90.5 kg (199 lb 8.3 oz) 10/13/[address] Height - - Body Mass Index 29.46 07/08/2023 0839 EDT documented in this encounter Miscellaneous Notes * Flowsheet Note - Marcela Cox RN - 10/13/2023 1340 EST 10/13/23 1058 Post-Hemodialysis Assessment Total Blood Processed (L) 90.77 Liters On Line Clearance: spKt/V 1.32 spKt/V Dialyzer Clearance Lightly streaked Treatment UFR (ml:kg:hr) 10.31 ml:kg:hr Fluid Removed (L) 4 L Post-Dialysis Scale Weight 86.8 kg (191 lb 5.8 oz) Wheelchair Weight 0 kg (0 lb) Prosthesis Weight 0 kg (0 lb) Post-Treatment Weight (kg) 86.8 Treatment Weight Change (kg) 3.7 kg Day Target Weight (kg) 87 Post Sitting/Lying BP 141/71 Post Sitting/Lying pulse 69 Post Standing BP 129/68 Post Standing Pulse 73 Temp 36.1 ??C (97 ??F) Temp src [...] Treatment [facility] [address] [place] [phone] Carlota Jin MD [address] [facility], Level [address] [place] [address] 12/08/2024 6:45 EST Treatment [facility] [address] [place] [phone] Carlota Jin MD 1 [facility], [facility] 2 [place] [phone] 12/11/2024 6:45 EST Treatment [facility] [place] [address] [place], [place] [phone] Carlota Jin MD [address] [facility], [facility] 2 [place] [phone] 12/13/2024 6:45 EST Treatment [facility] [place] [address] [place] [address] Carlota Jin MD 1 [facility], [facility] 2 [place] [phone] 12/15/2024 6:45 EST Treatment [facility] [place] [address] [place], [place] [phone] Carlota Jin MD [address] [facility], [facility] [address] [place] [phone] 12/18/2024 6:45 EST Treatment [facility] [address] [place], [place] [phone] Carlota Jin MD [address] [facility], [facility] 2 [place] [phone] 12/20/2024 6:45 EST Treatment [facility] [place] [address] [place], [place] [phone] Carlota Jin MD [address] [facility], [facility] 2 [place] [phone] 12/22/2024 6:45 EST Treatment [facility] [place] [address] [place], [place] [phone] Carlota Jin MD 1 [facility], [facility] 2 [place] [phone] 12/25/2024 6:45 EST Treatment [facility] [place] [address] [place], [place] [phone] Carlota Jin MD 1 [facility], [facility] 2 [place] [phone] 12/27/2024 6:45 EST Treatment [facility] [place] [address] [place], [place] [phone] Carlota Jin MD 1 [facility], [facility] 2 [place] [phone] 12/29/2024 6:45 EST Treatment [facility] [place] [address] [place], [place] [phone] Carlota Jin MD 1 [facility], [facility] 2 [place] [phone] 01/01/2025 6:45 EDT Treatment [facility] [place] [address] [place], [place] [phone] Carlota Jin MD 1 [facility], [facility] 2 [place] [phone] 01/03/2025 6:45 EDT Treatment [facility] [place] [address] [place] [address] Carlota Jin MD 1 [facility], [facility] 2 [place] [phone] 01/05/2025 6:45 EDT Treatment [facility] [place] [address] [place] [address] Carlota Jin MD [address] [facility], [facility] 2 [place] [phone] 01/08/2025 6:45 EDT Treatment [facility] [place] [address] [place] [address] Carlota Jin MD 1 [facility], [address] [phone] 01/10/2025 6:45 EDT Treatment [facility] [place] [address] [place] [address] Carlota Jin MD 1 [facility], [address] [phone] 01/12/2025 6:45 EDT Treatment [facility] [place] [address] [place] [address] Carlota Jin MD 1 [facility], [facility] 2 [place] [phone] 01/15/2025 6:45 EDT Treatment [facility] [place] [address] [place], [place] [phone] Carlota Jin MD 1 [facility], [facility] 2 [place] [phone] 01/17/2025 6:45 EDT Treatment [facility] [place] [address] [place], [place] [address] Carlota Jin MD 1 [facility], [facility] 2 [place] [phone] 01/19/2025 6:45 EDT Treatment [facility] [place] [address] [place], [place] [phone] Carlota Jin MD 1 [facility], [facility] 2 [place] [phone] 01/22/2025 6:45 EDT Treatment [facility] [place] [address] [place], [place] [address] Carlota Jin MD 1 [facility], [facility] 2 [place] [phone] 01/24/2025 6:45 EDT Treatment [facility] [place] [address] [place], [place] [address] Carlota Jin MD 1 [facility], [facility] 2 [place] [phone] 01/26/2025 6:45 EDT Treatment [facility] [place] [address] [place], [place] [phone] Carlota Jin MD 1 [facility], [facility] 2 [place] [phone] 01/29/2025 6:45 EDT Treatment [facility] [place] [address] [place], [place] [phone] Carlota Jin MD 1 [facility], [address] [phone] 01/31/2025 6:45 EDT Treatment [facility] [place] [address] [place], [place] [phone] Carlota Jin MD 1 [facility], [address] [phone] 02/02/2025 6:45 EDT Treatment [facility] [place] [address] [place], [place] [phone] Carlota Jin MD 1 [facility], [address] [phone] 02/05/2025 6:45 EDT Treatment [facility] [place] [address] [place], [place] [phone] Carlota Jin MD [address] [phone] 02/07/2025 6:45 EDT Treatment [facility] [place] [address] [place], [place] [phone] Carlota Jin MD [address] [phone] 02/09/2025 6:45 EDT Treatment [facility] [place] [address] [place], [place] [phone] Carlota Jin MD 1 [facility], [address] [phone] 02/12/2025 6:45 EDT Treatment [facility] [place] [address] [place], [place] [phone] Carlota Jin MD 1 [facility], [address] [phone] 02/14/2025 6:45 EDT Treatment [facility] [place] [address] [place], [place] [phone] Carlota Jin MD 1 [facility], [address] [phone] 02/16/2025 6:45 EDT Treatment [facility] [place] [address] [place], [place] [phone] Carlota Jin MD [address] [phone] 02/19/2025 6:45 EDT Treatment [facility] [place] [address] [place] [address] Carlota Jin MD 1 [facility], [address] [phone] 02/21/2025 6:45 EDT Treatment [facility] [place] [address] [place], [place] [phone] Carlota Jin MD 1 [facility], [address] [phone] documented as of this encounter Procedures Procedure Name Priority Date/Time Associated Diagnosis Comments COMPLETE BLOOD COUNT Routine 10/13/2023 6:32 EST ESRD (end stage renal disease) ([facility]) HEMODIALYSIS Routine 10/13/2023 6:25 EST ESRD (end stage renal disease) ([facility]) documented in this encounter Results * (ABNORMAL) COMPLETE BLOOD COUNT (10/13/2023 6:32 EST) WBC 7.62 4.00 - 10.40 K/cmm 10/13/2023 21:53 [facility] RBC 3.54(L) 4.36 - 5.78 M/cmm 10/13/2023 21:53 [facility] Hemoglobin 11.1(L) 13.8 - 17.3 g/dL 10/13/2023 21:53 [facility] HCT 33.3(L) 39.5 - 50.2 % 10/13/2023 21:53 [facility] MCV 94 81 - 95 fL 10/13/2023 21:53 [facility] MCH 31.4 27.6 - 33.0 pg 10/13/2023 21:53 [facility] MCHC 33.3 32.8 - 36.4 g/dL 10/13/2023 21:53 [facility] RDW-CV 12.2 <14.2 % 10/13/2023 21:53 [facility] RDW-SD 42.7 <46.0 fl 10/13/2023 21:53 [facility] PLT 246 141 - 377 K/cmm 10/13/2023 21:53 [facility] MPV 12.1 9.5 - 12.7 fL 10/13/2023 21:53 [facility] Blood VENOUS BLOOD / Unknown Venipuncture / Unknown 10/13/2023 6:32 EST 10/13/2023 6:32 EST Skye Gomez NP HEMATOLOGY & PF4 ORDERABLES Final Result [facility] [address] [place] [address] documented in this encounter Visit Diagnoses Diagnosis ESRD (end stage renal disease) ([facility])- Primary End stage renal disease Anemia of chronic renal failure, unspecified CKD stage Hypoalbuminemia Other disorders of plasma protein metabolism Secondary hyperparathyroidism ([facility]) Secondary hyperparathyroidism (of renal origin) documented in this encounter Administered Medications Inactive Administered Medications - up to 3 most recent administrations Medication Order MAR Action Action Date Dose Rate Site calcium carbonate (TUMS) tablet 500 mg (200 mg elemental calcium) 2 Tablet 2 Tablet, oral, ONCE IN DIALYSIS, 1 dose, On Wed10/13/23 at 0645, Routine, DialysisIndications:ESRD (end stage renal disease) ([facility]),Secondary hyperparathyroidism ([facility]) Given 10/13/2023 6:48 EST 2 Tablets epoetin ken (EPOGEN) 20,000 unit/2 mL injection 1,500 Units 1,500 Units, intravenous, ONCE IN DIALYSIS, 1 dose, On Wed10/13/23 at 0645, Routine, DialysisIndications:ESRD (end stage renal disease) ([facility]),Anemia of chronic renal failure, unspecified CKD stage Given 10/13/2023 6:47 EST 1,500 Units heparin injection 9,000 Units 9,000 Units, intravenous, ONCE IN DIALYSIS, 1 dose, On Wed10/13/23 at 0645, Routine, Dialysis, Now x1 bolus 4500 units to be given at the beginning of dialysis 1500 units/hour to be given over the course of dialysis (9000 units total). Stop 1 hour prior to end of treatment. To be administered per Policy [id number].Indications:ESRD (end stage renal disease) ([facility]) Given 10/13/2023 6:47 EST 9,000 Units LiquaCel liquid protein liquid 30 mL 30 mL, oral, ONCE IN DIALYSIS, 1 dose, On Wed10/13/23 at 0645, RoutineIndications:ESRD (end stage renal disease) ([facility]),Hypoalbuminemia Given 10/13/2023 6:47 EST 30 mL documented in this encounter Orders Dialysis Count Last Ordered Date First Orde red Date HEMODIALYSIS 1 10/13/2023 documented in this encounter Care Teams Business Operations Specialist Relationship Specialty Start Date End Date Ken Greer MD [address] [place] [address] PCP - General 07/07/23 documented as of this encounter
--- OUTSIDE RECORDS SUMMARY | 2024-12-05 12:16 | XMS_ITS | Encounter Summary ---
Author Organization [facility] Address [address] [place] [address] Care Team Providers Care Ophthalmology Surgical Technician Name Role Phone Ken Greer MD Primary Care Provider [phone] Encounter Details Date Type Department Care Team (Latest Contact Info) Description 10/11/2023 6:45 EST Treatment [facility] [address] [place], [place] [id number] Carlota Jin MD [address] [facility] [place] [place] Level [address] [place] [phone] ESRD (end stage renal disease) ([facility]) (Primary Dx); Anemia of chronic renal failure, unspecified CKD stage; Hypoalbuminemia; Secondary hyperparathyroidism ([facility]) Social History Tobacco Use Types [...] - Temperature - - Respiratory Rate 16 10/11/2023 0627 EST Oxygen Saturation - - Inhaled Oxygen Concentration - - Weight 91.7 kg (202 lb 2.6 oz) 10/11/[address] Height - - Body Mass Index 29.85 07/08/2023 0839 EDT documented in this encounter Progress Notes * Marcela Cox RN - 10/11/2023 0645 EST Pt ending tx early today d/t pain at fistula site. Pre tx assessment shows a slight flattened area of fistula at venous site noted by techs. Bruit and thrill WNL, techs avoided flattened area when cannulating. LUE swelling noted, as swelling has continued since last fistulogram (swelling worse on days with high fluid gains). After 3 hrs of tx pt ending tx AMA for pain. Pt reporting pain improved after needle removal. Educated pt that he should have fistulagram performed at [facility] to evaluate issue. Pt reports he is 100% refusing to have this done. documented in this encounter Miscellaneous Notes * Flowsheet Note - Marcela Cox RN - 10/11/2023 1050 EST 10/11/23 0959 Post-Hemodialysis Assessment Total Blood Processed (L) 70.81 Liters On Line Clearance: spKt/V 1.13 spKt/V Dialyzer Clearance Lightly streaked Treatment UFR (ml:kg:hr) 13.37 ml:kg:hr Critline refill Not done Fluid Removed (L) 3.84 L Post-Dialysis Scale Weight 87.9 kg (193 lb 12.6 oz) Wheelchair Weight 0 kg (0 lb) Prosthesis Weight 0 kg (0 lb) Post-Treatment Weight (kg) 87.9 Treatment Weight Change (kg) 3.8 kg Day Target Weight (kg) 87.7 Post Sitting/Lying BP 166/81 Post Sitting/Lying pulse 66 Post Standing BP 131/68 Post Standing Pulse 72 Temp 36.3 ??C (97.3 ??F) Temp src Temporal Post access assessment AVF/AFG Hemostasis achieved Yes Note 10 min hold Orientation Alert and Oriented x3 Yes Time Yes Place Yes Person Yes Cooperative Yes Disoriented No Discharge Ambulation Methods Ambulatory with assistive device Ambulation device (walking stick) Wrap up items Patient Response to Treatment Removed 3.8L out of original 4.5L UF goal, unable to remove full goald/t pt ending tx AMA d/t pain at fistula site (see Rn note for more info). Pain improved after needle removal. Comments Tx ended 51 min early AMA. documented in this encounter Plan of Treatment Upcoming Encounters Date Type Department Care Team (Late st Contact Info) Description 12/06/2024 6:45 EST Treatment [facility] - [place] [address] [place], [place] [id number] Carlota Jin MD [address] [facility] [place], [facility] 2 [place] [phone] 12/08/2024 6:45 EST Treatment [facility] [place] [address] [place], [place] [id number] Carlota Jin MD [address] [place] [phone] 12/11/2024 6:45 EST Treatment [facility] - [place] [address] [place], [place] [id number] Carlota Jin MD [address] [place] [address] 2 [place] [phone] 12/13/2024 6:45 EST Treatment [facility] - [place] [address] [place], [place] [phone] Carlota Jin MD [address] [place] [phone] 12/15/2024 6:45 EST Treatment [facility] [place] [address] [place], [place] [id number] Carlota Jin MD 1 [facility], [facility] 2 [place] [phone] 12/18/2024 6:45 EST Treatment [facility] - [place] [address] [place], [place] [id number] Carlota Jin MD 1 [facility], [facility] 2 [place] [phone] 12/20/2024 6:45 EST Treatment [facility] - [place] [address] [place], [place] [id number] Carlota Jin MD [address] [facility] [place], [facility] [address] [place] [phone] 12/22/2024 6:45 EST Treatment [facility] - [place] [address] [place], [place] [id number] Carlota Jin MD [address] [facility] [place], [facility] [address] [place] [phone] 12/25/2024 6:45 EST Treatment [facility] [address] [place], [place] [phone] Carlota Jin MD 1 [facility], [facility] 2 [place] [phone] 12/27/2024 6:45 EST Treatment [facility] - [place] [address] [place], [place] [id number] Carlota Jin MD 1 [facility], [facility] 2 [place] [phone] 12/29/2024 6:45 EST Treatment [facility] - [place] [address] [place], [place] [id number] Carlota Jin MD [address] [facility] [place], [facility] [address] [place] [phone] 01/01/2025 6:45 EDT Treatment [facility] - [place] [address] [place], [place] [id number] Carlota Jin MD [address] [facility] [place] [place], [facility] [address] [place] [phone] 01/03/2025 6:45 EDT Treatment [facility] - [place] [address] [place], [place] [id number] Carlota Jin MD [address] [facility] [place], [facility] [address] [place] [phone] 01/05/2025 6:45 EDT Treatment [facility] - [place] [address] [place] [address] Carlota Jin MD [address] [facility] [place], [facility] 2 [place] [phone] 01/08/2025 6:45 EDT Treatment [facility] - [place] [address] [place], [place] [id number] Carlota Jin MD [address] [facility] [place], [facility] [address] [place] [phone] 01/10/2025 6:45 EDT Treatment [facility] [place] - [place] [address] [place], [place] [id number] Carlota Jin MD [address] [facility] [place], [facility] 2 [place] [phone] 01/12/2025 6:45 EDT Treatment [facility] - [place] [address] [place], [place] [id number] Carlota Jin MD [address] [facility] [place], [address] [phone] 01/15/2025 6:45 EDT Treatment [facility] [place] [place] [address] [place], [place] [id number] Carlota Jin MD [address] [facility] [place], [address] [phone] 01/17/2025 6:45 EDT Treatment [facility] - [place] [address] [place], [place] [phone] Carlota Jin MD [address] [facility] [place], [address] [phone] 01/19/2025 6:45 EDT Treatment [facility] - [place] [address] [place], [place] [id number] Carlota Jin MD [address] [facility] [place], [facility] 2 [place] [phone] 01/22/2025 6:45 EDT Treatment [facility] - [place] [address] [place], [place] [phone] Carlota Jin MD [address] [facility] [place], [facility] 2 [place] [phone] 01/24/2025 6:45 EDT Treatment [facility] - [place] [address] [place], [place] [id number] Carlota Jin MD [address] [facility] [place], [facility] 2 [place] [phone] 01/26/2025 6:45 EDT Treatment [facility] - [place] [address] [place], [place] [id number] Carlota Jin MD [address] [facility] [place] [place], [facility] 2 [place] [phone] 01/29/2025 6:45 EDT Treatment [facility] [place] [address] [place] [address] Carlota Jin MD [address] [facility] [place], [address] [phone] 01/31/2025 6:45 EDT Treatment [facility] - [place] [address] [place], [place] [id number] Carlota Jin MD [address] [facility] [place], [facility] 2 [place] [phone] 02/02/2025 6:45 EDT Treatment [facility] - [place] [address] [place], [place] [id number] Carlota Jin MD [address] [facility] [place], [facility] 2 [place] [phone] 02/05/2025 6:45 EDT Treatment [facility] - [place] [address] [place], [place] [id number] Carlota Jin MD [address] [facility] [place], [facility] 2 [place] [phone] 02/07/2025 6:45 EDT Treatment [facility] - [place] [address] [place], [place] [id number] Carlota Jin MD [address] [facility] [place], [facility] 2 [place] [phone] 02/09/2025 6:45 EDT Treatment [facility] - [place] [address] [place] [address] Carlota Jin MD [address] [facility] [place] [place], [address] [phone] 02/12/2025 6:45 EDT Treatment [facility] - [place] [address] [place], [place] [phone] Carlota Jin MD [address] [phone] 02/14/2025 6:45 EDT Treatment [facility] - [place] [address] [place], [place] [id number] Carlota Jin MD [address] [phone] 02/16/2025 6:45 EDT Treatment [facility] - [place] [address] [place], [place] [id number] Carlota Jin MD 1 [facility] 2 [place] [phone] 02/19/2025 6:45 EDT Treatment [facility] [place] [address] [place] [phone] Carlota Jin MD [address] [facility] [place] [place], [address] [phone] 02/21/2025 6:45 EDT Treatment [facility] [place] [address] [place] [place] [address] Carlota Jin MD [address] [facility] [place] [place], [address] [phone] documented as of this encounter Procedures Procedure Name Priority Date/Time Associated Diagnosis Comments HEMODIALYSIS Routine 10/11/2023 6:27 EST ESRD (end stage renal disease) ([facility]) documented in this encounter Visit Diagnoses Diagnosis ESRD (end stage renal disease) ([facility])- Primary End stage renal disease Anemia of chronic renal failure, unspecified CKD stage Hypoalbuminemia Other disorders of plasma protein metabolism Secondary hyperparathyroidism ([facility]) Secondary hyperparathyroidism (of renal origin) documented in this encounter Administered Medications Inactive Administered Medications - up to 3 most recent administrations Medication Order MAR Action Action Date Dose Rate Site calcium carbonate (TUMS) tablet 500 mg (200 mg elemental calcium) 2 Tablet 2 Tablet, oral, ONCE IN DIALYSIS, 1 dose, On Wed10/11/23 at 0645, Routine, DialysisIndications:ESRD (end stage renal disease) ([facility]),Secondary hyperparathyroidism ([facility]) Given 10/11/2023 6:50 EST 2 Tablets epoetin ken (EPOGEN) 20,000 unit/2 mL injection 1,500 Units 1,500 Units, intravenous, ONCE IN DIALYSIS, 1 dose, On Wed10/11/23 at 0645, Routine, DialysisIndications:ESRD (end stage renal disease) ([facility]),Anemia of chronic renal failure, unspecified CKD stage Given 10/11/2023 6:50 EST 1,500 Units heparin injection 9,000 Units 9,000 Units, intravenous, ONCE IN DIALYSIS, 1 dose, On Wed10/11/23 at 0645, Routine, Dialysis, Now x1 bolus 4500 units to be given at the beginning of dialysis 1500 units/hour to be given over the course of dialysis (9000 units total). Stop 1 hour prior to end of treatment. To be administered per Policy [id number].Indications:ESRD (end stage renal disease) ([facility]) Given 10/11/2023 6:50 EST 9,000 Units LiquaCel liquid protein liquid 30 mL 30 mL, oral, ONCE IN DIALYSIS, 1 dose, On Wed10/11/23 at 0645, RoutineIndications:ESRD (end stage renal disease) ([facility]),Hypoalbuminemia Given 10/11/2023 6:50 EST 30 mL documented in this encounter Orders Dialysis Count Last Ordered Date First Orde red Date HEMODIALYSIS 1 10/11/2023 documented in this encounter Care Teams Ophthalmology Surgical Technician Relationship Specialty Start Date End Date Ken Greer [place] [address] [place] [address] PCP - General 07/07/23 documented as of this encounter
--- OUTSIDE RECORDS SUMMARY | 2024-12-05 12:17 | XMS_ITS | Encounter Summary ---
Author Organization [facility] Address [address] [place] [address] Care Team Providers Care International Marketing Coordinator Name Role Phone Ken Greer MD Primary Care Provider Kiel Powers Unavailable Unavailable Reason for Visit * Reason Onset Date Comments Kidney Transplant Pre-evaluation 10/06/2023 Encounter Details Date Type Department Care Team ([facility] st Contact Info) Description 10/06/[address] [facility] Transplant - [address] [place], [place] [id number] Nuris Malone RN Kidney Transplant Pre-evaluation Social History Tobacco Use [...] * Telephone Encounter - Natali Damon - 10/15/2023 0832 EST Renal Transplant Initial Phone Prescreen and Episode Creation Gerson agreed this was an appropriate time to discuss. Demographic Information: -Verify demographics -Patient's primary language: Uzbek -Preferred Contact Method: cell phone -Send a link to get MyChart Care Team Information (Name of Provider/Office): -Referring Provider: Dr. Jin -Clerical Coordinator: -Primary Care Provider: Dr. Ken Greer Dialysis Information: -Center: [facility] -Type: In-Center Hemodialysis (HD) -Days: M, W, morning Does not have good service at his house and prefers to be called at dialysis Support Information: Primary Support Person: Hoda Bruner, spouse -Will any of your support people need an foreign language interpreter during your visit?: no -Do we have permission to verbally discuss information with these people? Including: Medical Information/Scheduling/Billing: Yes Medical Information: Have you ever had a transplant before?: -No Are you on the waitlist at any other centers?: -No Recent height and weight?: -200lbs 5'9 Have you ever been diagnosed with any type of cancer?: Cancerous spot on back that was removed by his pcp about a month ago Have you ever used nicotine/tobacco products (including cigarettes, cigars, vape, gum, patch, chew,etc)?: Yes - currently smokes Explained current nicotine/tobacco policy and that we could not move any further at this time. Xander expressed that he was confused because a nurse at dialysis had told him this was not a policy anymore - I said that maybe she had heard it could potentially change but it has not yet. Let Xander know that when/if the policy is revoked he can call back to re-refer himself. Natali Damon 10/15/2023 8:32 * Telephone Encounter - Natali Damon - 10/13/2023 1559 EST Left message to let Xander know I will call Wednesday morning while at dialysis * Telephone Encounter - Gavin Ordaz - 10/13/2023 0822 EST Pt returning call he is at dialysis now and says it is the best time to get in touch with him as hedoesn't have great service at home. He will call back around 9 am if he has heard anything. * Telephone Encounter - Natali Damon - 10/12/2023 1035 EST Renal Transplant Initial Phone Prescreen and Episode Creation Gerson answered the phone - couldn't hear well and he hung up. Will call back tomorrow when he is at dialysis [facility] 10/12/2023 10:35 * Telephone Encounter - Natali Damon - 10/07/2023 1307 EST Renal Transplant Initial Phone Prescreen and Episode Creation Gerson did not answer the phone, left a message with details to call back to complete screening [facility] 10/07/2023 13:07 * Telephone Encounter - Natali Damon - 10/06/2023 1340 EST Renal Transplant Initial Phone Prescreen and Episode Creation Gerson did not answer the phone, left a message with details to call back to complete screening [facility] 10/06/2023 13:40 documented in this encounter Plan of Treatment Upcoming Encounters Date Type Department Care Team (Late st Contact Info) Description 12/06/2024 6:45 EST Treatment [facility] [address] [place], [place] [id number] Carlota Jin MD [address] [place] [address], [facility] [address] [place] [phone] 12/08/2024 6:45 EST Treatment [facility] [address] [place] [id number] Carlota Jin MD [address] [place] [address], [facility] [address] [place] [phone] 12/11/2024 6:45 EST Treatment [facility] [address] [place] [id number] Carlota Jin MD 1 [facility], Level [address] [place] [phone] 12/13/2024 6:45 EST Treatment [facility] [address] [place], [place] [id number] Carlota Jin MD 1 [facility], [facility] [address] [place] [phone] 12/15/2024 6:45 EST Treatment [facility] [place] [address] [place], [place] [id number] Carlota Jin MD 1 [facility], [facility] [address] [place] [phone] 12/18/2024 6:45 EST Treatment [facility] [place] [address] [place], [place] [id number] Carlota Jin MD 1 [facility], [facility] 2 [place] [phone] 12/20/2024 6:45 EST Treatment [facility] [place] [address] [place], [place] [id number] Carlota Jin MD 1 [facility], [facility] [address] [place] [phone] 12/22/2024 6:45 EST Treatment [facility] [address] [place], [place] [phone] Carlota Jin MD 1 [facility], [facility] 2 [place] [phone] 12/25/2024 6:45 EST Treatment [facility] [place] [address] [place], [place] [id number] Carlota Jin MD 1 [facility], [facility] 2 [place] [phone] 12/27/2024 6:45 EST Treatment [facility] [place] [address] [place], [place] [phone] Carlota Jin MD 1 [facility], [facility] [address] [place] [phone] 12/29/2024 6:45 EST Treatment [facility] [address] [place], [place] [phone] Carlota Jin MD [address] [place] [address], [facility] [address] [place] [phone] 01/01/2025 6:45 EDT Treatment [facility] [address] [place], [place] [phone] Carlota Jin MD [address] [place] [address], [facility] [address] [place] [phone] 01/03/2025 6:45 EDT Treatment [facility] [address] [place], [place] [phone] Carlota Jin MD 1 [facility], [facility] 2 [place] [phone] 01/05/2025 6:45 EDT Treatment [facility] [place] [address] [place], [place] [phone] Carlota Jin MD 1 [facility], [facility] [address] [place] [phone] 01/08/2025 6:45 EDT Treatment [facility] [address] [place], [place] [phone] Carlota Jin MD 1 [facility], [facility] [address] [place] [phone] 01/10/2025 6:45 EDT Treatment [facility] [address] [place] [address] Carlota Jin MD 1 [facility], [address] [phone] 01/12/2025 6:45 EDT Treatment [facility] [address] [place], [place] [phone] Carlota Jin MD 1 [facility], [address] [phone] 01/15/2025 6:45 EDT Treatment [facility] [place] [address] [place] [address] Carlota Jin MD 1 [facility], [facility] [address] [place] [phone] 01/17/2025 6:45 EDT Treatment [facility] [address] [place], [place] [phone] Carlota Jin MD 1 [facility], [facility] [address] [place] [phone] 01/19/2025 6:45 EDT Treatment [facility] [address] [place], [place] [address] Carlota Jin MD 1 [facility], [facility] 2 [place] [phone] 01/22/2025 6:45 EDT Treatment [facility] [place] [address] [place], [place] [id number] Carlota Jin MD 1 [facility], [facility] 2 [place] [phone] 01/24/2025 6:45 EDT Treatment [facility] [place] [address] [place], [place] [phone] Carlota Jin MD 1 [facility], [address] [phone] 01/26/2025 6:45 EDT Treatment [facility] [address] [place], [place] [address] Carlota Jin MD 1 [facility], [facility] 2 [place] [phone] 01/29/2025 6:45 EDT Treatment [facility] [address] [place], [place] [phone] Carlota Jin MD 1 [facility], [facility] 2 [place] [phone] 01/31/2025 6:45 EDT Treatment [facility] [address] [place], [place] [address] Carlota Jin MD 1 [facility], [address] [phone] 02/02/2025 6:45 EDT Treatment [facility] [address] [place] [address] Carlota Jin MD 1 [facility], [address] [phone] 02/05/2025 6:45 EDT Treatment [facility] [address] [place], [place] [phone] Carlota Jin MD 1 [facility], [address] [phone] 02/07/2025 6:45 EDT Treatment [facility] [address] [place], [place] [phone] Carlota Jin MD 1 [facility], [address] [phone] 02/09/2025 6:45 EDT Treatment [facility] [address] [place], [place] [phone] Carlota Jin MD 1 [facility], [address] [phone] 02/12/2025 6:45 EDT Treatment [facility] [address] [place], [place] [phone] Carlota Jin MD 1 [facility], [facility] 2 [place] [phone] 02/14/2025 6:45 EDT Treatment [facility] [address] [place], [place] [phone] Carlota Jin MD [address] [place] [address], [address] [phone] 02/16/2025 6:45 EDT Treatment [facility] [address] [place], [place] [phone] Carlota Jin MD [address] [place] [address], [address] [phone] 02/19/2025 6:45 EDT Treatment [facility] [address] [place], [place] [phone] Carlota Jin MD [address] [place] [phone] 02/21/2025 6:45 EDT Treatment [facility] [address] [place], [place] [phone] Carlota Jin MD [address] [place] [address], [address] [phone] documented as of this encounter Visit Diagnoses Not on filedocumented in this encounter Additional Health Concerns Infection Onset Date Last Indicated Resolved Time COVID-19 Comment:COVID+ 11/05/23 @[place] (see scan) 11/08/2023 11/08/2023 11/17/2023 13:58 EST R/O COVID-19 12/20/2023 12/20/2023 12/20/2023 7:14 EST COVID-19 Comment:Collected @ [facility]. 03/12/2024 03/13/2024 04/01/2024 22: 15 EDT R/O COVID-19 05/30/2024 05/30/2024 05/30/2024 20:5 0 EDT documented as of this encounter Care Teams International Marketing Coordinator Relationship Specialty Start Date End Date Ken Greer MD [address] [place] [address] PCP - General 07/07/23 Kiel Powers Supervisor Force Adjustment Nephrology 05/31/24 documented as of this encounter
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
--- OUTSIDE RECORDS SUMMARY | 2024-12-05 12:17 | XMS_ITS | Encounter Summary ---
Author Organization [facility] Address [address] [place] [address] Care Team Providers Care Electrical Installation Supervisor Name Role Phone Ken Greer MD Primary Care Provider Encounter Details Date Type Department Care Team (Late st Contact Info) Description 10/06/2023 Documentation Visit [facility] [address] [place] [address] Alexa Estrada LICSW [address] [place] [address] Social History Tobacco Use Types Packs/Day Years [...] Progress Notes * Alexa Estrada LICSW - 10/06/2023 0950 EST Parts Data Writer's Monthly Assessment UPDATE: SW met with pt while on dialysis. SW gave pt VKA check for mileage reimbursement and informed the pt that his car registration will need to be updated for the VKA, pt said he will provide it on Wednesday when he comes in. Pt is also concerned about missing a call from transplant- asked that this SW communicate with transplant that he has poor cell service and the best way to reach him is to call himwhile he is on dialysis. SW passed on this message to Teja Berger, transplant SW. SW will continueto remain available. Current Living Situation: Lives with family and Lives with friends Lives with family Pt lives with his , Hoda, in their apartment in [place]. 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 Education: Highest level of education: high school [...] EST Treatment [facility] [place] [address] [place], [place] [phone] Carlota Jin MD [address] [phone] 12/08/2024 6:45 EST Treatment [facility] [address] [place], [place] [phone] Carlota Jin MD [address] [phone] 12/11/2024 6:45 EST Treatment [facility] [address] [place], [place] [phone] Carlota Jin MD [address] [phone] 12/13/2024 6:45 EST Treatment [facility] [address] [place], [place] [phone] Carlota Jin MD [address] [phone] 12/15/2024 6:45 EST Treatment [facility] [address] [place], [place] [phone] Carlota Jin MD [address] [phone] 12/18/2024 6:45 EST Treatment [facility] [place] [address] [place], [place] [phone] Carlota Jin MD 1 [facility] 2 [place] [phone] 12/20/2024 6:45 EST Treatment [facility] [place] [address] [place], [place] [phone] Carlota Jin MD 1 [facility], [facility] 2 [place] [phone] 12/22/2024 6:45 EST Treatment [facility] [place] [address] [place] [address] Carlota Jin MD 1 [facility], [facility] 2 [place] [phone] 12/25/2024 6:45 EST Treatment [facility] [place] [address] [place], [place] [phone] Carlota Jin MD 1 [facility], [facility] 2 [place] [phone] 12/27/2024 6:45 EST Treatment [facility] [place] [address] [place], [place] [phone] Carlota Jin MD 1 [facility], [facility] 2 [place] [phone] 12/29/2024 6:45 EST Treatment [facility] [place] [address] [place], [place] [address] Carlota Jin MD 1 [facility], [facility] 2 [place] [phone] 01/01/2025 6:45 EDT Treatment [facility] [place] [address] [place], [place] [phone] Carlota Jin MD 1 [facility], [facility] 2 [place] [phone] 01/03/2025 6:45 EDT Treatment [facility] [place] [address] [place], [place] [phone] Carlota Jin MD 1 [facility], [facility] [address] [place] [phone] 01/05/2025 6:45 EDT Treatment [facility] [place] [address] [place], [place] [phone] Carlota Jin MD 1 [facility], [facility] [address] [place] [phone] 01/08/2025 6:45 EDT Treatment [facility] [place] [address] [place], [place] [phone] Carlota Jin MD 1 [facility], [facility] 2 [place] [phone] 01/10/2025 6:45 EDT Treatment [facility] [place] [address] [place], [place] [phone] Carlota Jin MD 1 [facility] 2 [place] [phone] 01/12/2025 6:45 EDT Treatment [facility] [place] [address] [place], [place] [phone] Carlota Jin MD 1 [facility], [facility] [address] [place] [phone] 01/15/2025 6:45 EDT Treatment [facility] [place] [address] [place], [place] [phone] Carlota Jin MD 1 [facility], [facility] 2 [place] [phone] 01/17/2025 6:45 EDT Treatment [facility] [place] [address] [place], [place] [phone] Carlota Jin MD 1 [facility], [facility] [address] [place] [phone] 01/19/2025 6:45 EDT Treatment [facility] [place] [address] [place], [place] [phone] Carlota Jin MD 1 [facility], [facility] 2 [place] [phone] 01/22/2025 6:45 EDT Treatment [facility] [address] [place], [place] [phone] Carlota Jin MD 1 [facility], [facility] 2 [place] [phone] 01/24/2025 6:45 EDT Treatment [facility] [place] [address] [place], [place] [phone] Carlota Jin MD 1 [facility], [facility] 2 [place] [phone] 01/26/2025 6:45 EDT Treatment [facility] [place] [address] [place], [place] [phone] Carlota Jin MD 1 [facility], [address] [phone] 01/29/2025 6:45 EDT Treatment [facility] [place] [address] [place], [place] [phone] Carlota Jin MD 1 [facility], [address] [phone] 01/31/2025 6:45 EDT Treatment [facility] [place] [address] [place], [place] [phone] Carlota Jin MD 1 [facility], [facility] 2 [place] [phone] 02/02/2025 6:45 EDT Treatment [facility] [place] [address] [place], [place] [phone] Carlota Jin MD 1 [facility], [facility] 2 [place] [phone] 02/05/2025 6:45 EDT Treatment [facility] [place] [address] [place], [place] [phone] Carlota Jin MD 1 [facility], [facility] 2 [place] [phone] 02/07/2025 6:45 EDT Treatment [facility] [place] [address] [place], [place] [phone] Carlota Jin MD 1 [facility], [facility] 2 [place] [phone] 02/09/2025 6:45 EDT Treatment [facility] [place] [address] [place] [address] Carlota Jin MD 1 [facility], [facility] 2 [place] [phone] 02/12/2025 6:45 EDT Treatment [facility] [place] [address] [place] [address] Carlota Jin MD 1 [facility], [facility] 2 [place] [phone] 02/14/2025 6:45 EDT Treatment [facility] [place] [address] [place] [address] Carltoa Jin MD 1 [facility], [facility] 2 [place] [phone] 02/16/2025 6:45 EDT Treatment [facility] [place] [address] [place], [place] [phone] Carlota Jin MD 1 [facility], [facility] [address] [place] [phone] 02/19/2025 6:45 EDT Treatment [facility] [address] [place], [place] [phone] Carlota Jin MD 1 [facility], [facility] 2 [place] [phone] 02/21/2025 6:45 EDT Treatment [facility] [address] [place], [place] [phone] Carlota Jin MD 1 [facility], [facility] [address] [place] [phone] documented as of this encounter Visit Diagnoses Not on filedocumented in this encounter Care Teams Electrical Installation Supervisor Relationship Specialty Start Date End Date Ken Greer MD [facility] [place] [address] PCP - General 07/07/23 documented as of this encounter
--- OUTSIDE RECORDS SUMMARY | 2024-12-05 12:17 | XMS_ITS | Encounter Summary ---
Author Organization [facility] Address [address] [place] [address] Care Team Providers Care Cooky Packer Name Role Phone Ken Greer MD Primary Care Provider [phone] Encounter Details Date Type Department Care Team (Latest Contact Info) Description 10/05/2023 6:45 EST Treatment [facility] [address] [facility] [place], [place] [id number] ESRD (end stage renal disease) ([facility]) (Primary Dx); Anemia of chronic renal failure, unspecified CKD stage; Hypoalbuminemia; Secondary hyperparathyroidism ([facility]) Social History Tobacco Use Types [...] - Temperature - - Respiratory Rate 16 10/05/2023 0632 EST Oxygen Saturation - - Inhaled Oxygen Concentration - - Weight 93.4 kg (205 lb 14.6 oz) 10/05/2023 0632 EST Height - - Body Mass Index 30.41 07/08/2023 0839 EDT documented in this encounter Miscellaneous Notes * Flowsheet Note - Marcela Cox RN - 10/05/2023 1126 EST 10/05/23 1051 Post-Hemodialysis Assessment Total Blood Processed (L) 90.62 Liters On Line Clearance: spKt/V 1.38 spKt/V Dialyzer Clearance Lightly streaked Treatment UFR (ml:kg:hr) 11.72 ml:kg:hr Final Critline Profile (%/hr) -3.34 Final Profile Profile B Critline refill Positive (34.1/34.5) Fluid Removed (L) 4.54 L Post-Dialysis Scale Weight 90.6 kg (199 lb 11.8 oz) Wheelchair Weight 0 kg (0 lb) Prosthesis Weight 1.4 kg (3 lb 1.4 oz) (boots) Post-Treatment Weight (kg) 89.2 Treatment Weight Change (kg) 4.2 kg Day Target Weight (kg) 89.4 Post Sitting/Lying BP 148/78 Post Sitting/Lying pulse 64 Post Standing BP 131/68 Post Standing Pulse 71 Temp 36.1 ??C (97 ??F) Temp src [...] Contact Info) Description 12/06/2024 6:45 EST Treatment [facility] [address] [place] [address] Carlota Jin MD 1 [facility] Level [address] [place] [address] 12/08/2024 6:45 EST Treatment [facility] [address] [place] [address] Carlota Jin MD 1 [facility], Level [address] [place] [phone] 12/11/2024 6:45 EST Treatment [facility] - [place] [address] [place], [place] [address] Carlota Jin MD 1 [facility] 2 [place] [phone] 12/13/2024 6:45 EST Treatment [facility] - [place] [address] [place], [place] [id number] Carlota Jin MD 1 [facility], [facility] 2 [place] [phone] 12/15/2024 6:45 EST Treatment [facility] [place] [address] [place] [address] Carlota Jin MD 1 [facility], [facility] 2 [place] [phone] 12/18/2024 6:45 EST Treatment [facility] [address] [place], [place] [id number] Carlota iJn MD 1 [facility], [facility] 2 [place] [phone] 12/20/2024 6:45 EST Treatment [facility] [place] [address] [place], [place] [id number] Carlota Jin MD 1 [facility], [facility] 2 [place] [phone] 12/22/2024 6:45 EST Treatment [facility] [place] [address] [place], [place] [id number] Carlota Jin MD 1 [facility], [facility] 2 [place] [phone] 12/25/2024 6:45 EST Treatment [facility] [place] [address] [place], [place] [id number] Carlota Jin MD 1 [facility], [facility] 2 [place] [phone] 12/27/2024 6:45 EST Treatment [facility] [place] [address] [place], [place] [id number] Carlota Jin MD 1 [facility], [facility] 2 [place] [phone] 12/29/2024 6:45 EST Treatment [facility] [place] [address] [place], [place] [id number] Carlota Jin MD 1 [facility], [facility] 2 [place] [phone] 01/01/2025 6:45 EDT Treatment [facility] [place] [address] [place], [place] [id number] Carlota Jin MD 1 [facility], [facility] 2 [place] [phone] 01/03/2025 6:45 EDT Treatment [facility] [place] [address] [place], [place] [id number] Carlota Jin MD 1 [facility], [facility] 2 [place] [phone] 01/05/2025 6:45 EDT Treatment [facility] [place] [address] [place], [place] [id number] Carlota Jin MD 1 [facility], [facility] 2 [place] [phone] 01/08/2025 6:45 EDT Treatment [facility] [place] [address] [place], [place] [id number] Carlota Jin MD [address] [facility], [facility] 2 [place] [phone] 01/10/2025 6:45 EDT Treatment [facility] [place] [address] [place], [place] [id number] Carlota Jin MD 1 [facility], [facility] 2 [place] [phone] 01/12/2025 6:45 EDT Treatment [facility] [address] [place], [place] [id number] Carlota Jin MD 1 [facility], [facility] 2 [place] [phone] 01/15/2025 6:45 EDT Treatment [facility] [place] [address] [place], [place] [id number] Carlota Jin MD 1 [facility], [facility] 2 [place] [phone] 01/17/2025 6:45 EDT Treatment [facility] [place] [address] [place], [place] [id number] Carlota Jin MD [address] [facility], [facility] 2 [place] [phone] 01/19/2025 6:45 EDT Treatment [facility] [place] [address] [place], [place] [id number] Carlota Jin MD [address] [facility], [facility] 2 [place] [phone] 01/22/2025 6:45 EDT Treatment [facility] [place] [address] [place], [place] [id number] Carlota Jin MD [address] [facility], [facility] 2 [place] [phone] 01/24/2025 6:45 EDT Treatment [facility] [place] [address] [place], [place] [address] Carlota Jin MD 1 [facility], [facility] 2 [place] [phone] 01/26/2025 6:45 EDT Treatment [facility] [place] [address] [place], [place] [id number] Carlota Jin MD 1 [facility], [facility] 2 [place] [phone] 01/29/2025 6:45 EDT Treatment [facility] [place] [address] [place], [place] [id number] Carlota Jin MD 1 [facility], [facility] 2 [place] [phone] 01/31/2025 6:45 EDT Treatment [facility] [place] [address] [place] [address] Carlota Jin MD 1 [facility], [address] [phone] 02/02/2025 6:45 EDT Treatment [facility] [place] [address] [place], [place] [id number] Carlota Jin MD 1 [facility], [address] [phone] 02/05/2025 6:45 EDT Treatment [facility] - [place] [address] [place], [place] [id number] Carlota Jin MD 1 [facility], [address] [phone] 02/07/2025 6:45 EDT Treatment [facility] - [place] [address] [place], [place] [id number] Cralota Jin MD 1 [facility], [facility] 2 [place] [phone] 02/09/2025 6:45 EDT Treatment [facility] - [place] [address] [place], [place] [id number] Carlota Jin MD [address] [facility], [facility] 2 [place] [phone] 02/12/2025 6:45 EDT Treatment [facility] - [place] [address] [place], [place] [id number] Carlota Jin MD [address] [phone] 02/14/2025 6:45 EDT Treatment [facility] - [place] [address] [place], [place] [id number] Carlota Jin MD [address] [phone] 02/16/2025 6:45 EDT Treatment [facility] - [place] [address] [place], [place] [id number] Carlota Jin MD [address] [phone] 02/19/2025 6:45 EDT Treatment [facility] - [place] [address] [place], [place] [id number] Carlota Jin MD [address] [place] [phone] 02/21/2025 6:45 EDT Treatment [facility] - [place] [address] [place], [place] [id number] Carlota Jin MD [address] [phone] documented as of this encounter Procedures Procedure Name Priority Date/Time Associated Diagnosis Comments HEMODIALYSIS Routine 10/05/2023 6:32 EST ESRD (end stage renal disease) ([facility]) documented in this encounter Visit Diagnoses Diagnosis ESRD (end stage renal disease) ([facility])- Primary End stage renal disease Anemia of chronic renal failure, unspecified CKD stage Hypoalbuminemia Other disorders of plasma protein metabolism Secondary hyperparathyroidism ([facility]) Secondary hyperparathyroidism (of renal origin) documented in this encounter Administered Medications Inactive Administered Medications - up to 3 most recent administrations Medication Order MAR Action Action Date Dose Rate Site calcium carbonate (TUMS) tablet 500 mg (200 mg elemental calcium) 2 Tablet 2 Tablet, oral, ONCE IN DIALYSIS, 1 dose, On Wed10/05/23 at 0700, Routine, DialysisIndications:ESRD (end stage renal disease) ([facility]),Secondary hyperparathyroidism ([facility]) Given 10/05/2023 6:56 EST 2 Tablets epoetin ken (EPOGEN) 20,000 unit/2 mL injection 1,500 Units 1,500 Units, intravenous, ONCE IN DIALYSIS, 1 dose, On Wed10/05/23 at 0700, Routine, DialysisIndications:ESRD (end stage renal disease) ([facility]),Anemia of chronic renal failure, unspecified CKD stage Given 10/05/2023 6:56 EST 1,500 Units heparin injection 9,000 Units 9,000 Units, intravenous, ONCE IN DIALYSIS, 1 dose, On Wed10/05/23 at 0700, Routine, Dialysis, Now x1 bolus 4500 units to be given at the beginning of dialysis 1500 units/hour to be given over the course of dialysis (9000 units total). Stop 1 hour prior to end of treatment. To be administered per Policy [id number].Indications:ESRD (end stage renal disease) ([facility]) Given 10/05/2023 6:56 EST 9,000 Units LiquaCel liquid protein liquid 30 mL 30 mL, oral, ONCE IN DIALYSIS, 1 dose, On Wed10/05/23 at 0700, RoutineIndications:ESRD (end stage renal disease) ([facility]),Hypoalbuminemia Given 10/05/2023 6:56 EST 30 mL documented in this encounter Orders Dialysis Count Last Ordered Date First Orde red Date HEMODIALYSIS 1 10/05/2023 documented in this encounter Care Teams Cooky Packer Relationship Specialty Start Date End Date Ken Greer MD [address] [place] [address] PCP - General 07/07/23 documented as of this encounter
--- OUTSIDE RECORDS SUMMARY | 2024-12-05 12:17 | XMS_ITS | Encounter Summary ---
Author Organization [facility] Address [address] [place] [address] Care Team Providers Care Ground [employer] Contractor Name Role Phone Ken Greer MD Primary Care Provider [phone] Encounter Details Date Type Department Care Team (Late st Contact Info) Description 09/28/2023 Documentation Visit [facility] [address] [place] [address] [address] Eden, RD [address] [place] [address] Social History Tobacco Use Types Packs/Day Years [...] Description 12/06/2024 6:45 EST Treatment [facility] [address] [place], [place] [address] Carlota Jin MD 1 [facility], Level [address] [place] [phone] 12/08/2024 6:45 EST Treatment [facility] - [place] [address] [place], [place] [address] Carlota Jin MD 1 [facility], [facility] 2 [place] [phone] 12/11/2024 6:45 EST Treatment [facility] [place] [address] [place], [place] [id number] Carlota Jin MD 1 [facility], [facility] 2 [place] [phone] 12/13/2024 6:45 EST Treatment [facility] - [place] [address] [place], [place] [id number] Carlota Jin MD 1 [facility], [facility] 2 [place] [phone] 12/15/2024 6:45 EST Treatment [facility] - [place] [address] [place], [place] [id number] Carlota Jin MD 1 [facility], [address] [phone] 12/18/2024 6:45 EST Treatment [facility] - [place] [address] [place], [place] [id number] Carlota Jin MD 1 [facility], [facility] 2 [place] [phone] 12/20/2024 6:45 EST Treatment [facility] [place] [address] [place], [place] [id number] Carlota Jin MD 1 [facility], [facility] 2 [place] [phone] 12/22/2024 6:45 EST Treatment [facility] [place] [address] [place], [place] [id number] Carlota Jin MD 1 [facility], [facility] 2 [place] [phone] 12/25/2024 6:45 EST Treatment [facility] [place] [address] [place], [place] [id number] Carlota Jin MD 1 [facility], [facility] 2 [place] [phone] 12/27/2024 6:45 EST Treatment [facility] [address] [place], [place] [id number] Carlota Jin MD 1 [facility], [facility] 2 [place] [phone] 12/29/2024 6:45 EST Treatment [facility] [address] [place], [place] [id number] Carlota Jin MD 1 [facility], [facility] 2 [place] [phone] 01/01/2025 6:45 EDT Treatment [facility] [address] [place], [place] [id number] Carlota Jin MD 1 [facility], [facility] 2 [place] [phone] 01/03/2025 6:45 EDT Treatment [facility] [place] [address] [place], [place] [id number] Carlota Jin MD 1 [facility], [facility] 2 [place] [phone] 01/05/2025 6:45 EDT Treatment [facility] [place] [address] [place], [place] [id number] Carlota Jin MD 1 [facility], [facility] 2 [place] [phone] 01/08/2025 6:45 EDT Treatment [facility] [place] [address] [place], [place] [id number] Carlota Jin MD 1 [facility], [address] [phone] 01/10/2025 6:45 EDT Treatment [facility] [place] [address] [place], [place] [id number] Carlota Jin MD 1 [facility], [address] [phone] 01/12/2025 6:45 EDT Treatment [facility] - [place] [address] [place], [place] [id number] Carlota Jin MD 1 [facility], [facility] 2 [place] [phone] 01/15/2025 6:45 EDT Treatment [facility] [place] [address] [place], [place] [id number] Carlota Jin MD 1 [facility] Level [address] [place] [phone] 01/17/2025 6:45 EDT Treatment [facility] - [place] [address] [place], [place] [address] Carlota Jin MD 1 [facility], [facility] 2 [place] [phone] 01/19/2025 6:45 EDT Treatment [facility] [place] [address] [place], [place] [id number] Carlota Jin MD 1 [facility], [facility] 2 [place] [phone] 01/22/2025 6:45 EDT Treatment [facility] [place] [address] [place], [place] [id number] Carlota Jin MD 1 [facility], [facility] 2 [place] [phone] 01/24/2025 6:45 EDT Treatment [facility] [place] [address] [place] [address] Carlota Jin MD 1 [facility], [facility] 2 [place] [phone] 01/26/2025 6:45 EDT Treatment [facility] [place] [address] [place], [place] [id number] Carlota Jin MD 1 [facility], [facility] 2 [place] [phone] 01/29/2025 6:45 EDT Treatment [facility] - [place] [address] [place], [place] [id number] Carlota Jin MD 1 [facility], [facility] 2 [place] [phone] 01/31/2025 6:45 EDT Treatment [facility] - [place] [address] [place], [place] [id number] Carlota Jin MD 1 [facility], [facility] 2 [place] [phone] 02/02/2025 6:45 EDT Treatment [facility] - [place] [address] [place] [address] Carlota Jin MD [address] [place] [address], [facility] 2 [place] [phone] 02/05/2025 6:45 EDT Treatment [facility] [place] [address] [place], [place] [id number] Carlota Jin MD [address] [place] [address], [facility] 2 [place] [phone] 02/07/2025 6:45 EDT Treatment [facility] - [place] [address] [place], [place] [id number] Carlota Jin MD 1 [facility], [facility] 2 [place] [phone] 02/09/2025 6:45 EDT Treatment [facility] - [place] [address] [place], [place] [id number] Carlota Jin MD 1 [facility], [facility] 2 [place] [phone] 02/12/2025 6:45 EDT Treatment [facility] [place] [address] [place], [place] [id number] Carlota Jin MD 1 [facility], [facility] 2 [place] [phone] 02/14/2025 6:45 EDT Treatment [facility] [place] [address] [place], [place] [id number] Carlota Jin MD 1 [facility], [facility] 2 [place] [phone] 02/16/2025 6:45 EDT Treatment [facility] [place] [address] [place], [place] [id number] Carlota Jin MD 1 [facility], [facility] 2 [place] [phone] 02/19/2025 6:45 EDT Treatment [facility] - [place] [address] [place], [place] [id number] Carlota Jin MD 1 [facility], [facility] 2 [place] [phone] 02/21/2025 6:45 EDT Treatment [facility] [place] [address] [place], [place] [id number] Carlota Jin MD 1 [facility], [facility] 2 [place] [phone] documented as of this encounter Visit Diagnoses Not on filedocumented in this encounter Care Teams Ground Water Contractor Relationship Specialty Start Date End Date Ken Greer MD [place] [address] PCP - General 07/07/23 documented as of this encounter
--- OUTSIDE RECORDS SUMMARY | 2024-12-05 12:17 | XMS_ITS | Encounter Summary ---
Author Organization [facility] Address [address] [place] [address] Care Team Providers Care Nickel Plater Name Role Phone Ken Greer MD Primary Care Provider [phone] Encounter Details Date Type Department Care Team (Latest Contact Info) Description 09/22/2023 6:45 EST Treatment [facility] [address] [place], [place] [phone] Carlota Jin MD 1 [facility], Level [address] [place] [address] ESRD (end stage renal disease) ([facility]) (Primary Dx); Anemia of chronic renal failure, unspecified CKD stage; Hypoalbuminemia; Secondary hyperparathyroidism ([facility]) Social History Tobacco Use Types [...] - Temperature - - Respiratory Rate 16 09/22/2023 0634 EST Oxygen Saturation - - Inhaled Oxygen Concentration - - Weight 90 kg (198 lb 6.6 oz) 09/22/2023 0626 EST Height - - Body Mass Index 29.3 07/08/2023 0839 EDT documented in this encounter Miscellaneous Notes * Flowsheet Note - Marcela Cox RN - 09/22/2023 1132 EST 09/22/23 1111 Post-Hemodialysis Assessment Total Blood Processed (L) 91.35 Liters On Line Clearance: spKt/V 1.34 spKt/V Dialyzer Clearance Lightly streaked Treatment UFR (ml:kg:hr) 8.48 ml:kg:hr Final Critline Profile (%/hr) -3.17 Final Profile Profile B Critline refill Negative (33.7-33.5) Fluid Removed (L) 3.5 L Post-Dialysis Scale Weight 88 kg (194 lb 0.1 oz) Wheelchair Weight 0 kg (0 lb) Prosthesis Weight 1 kg (2 lb 3.3 oz) (brown boots per notes) Post-Treatment Weight (kg) 87 Treatment Weight Change (kg) 3 kg Day Target Weight (kg) 87 Post Sitting/Lying BP (!) 172/92 Post Sitting/Lying pulse 65 Post Standing BP 164/84 Post Standing Pulse 69 Temp 36.1 ??C (97 ??F) Temp [...] Info) Description 12/06/2024 6:45 EST Treatment [facility] [place] [address] [place] [address] Carlota Jin MD 1 [facility], Level [address] [place] [address] 12/08/2024 6:45 EST Treatment [facility] [place] [address] [place], [place] [phone] Carlota Jin MD 1 [facility], [facility] [address] [place] [phone] 12/11/2024 6:45 EST Treatment [facility] [place] [address] [place], [place] [phone] Carlota Jin MD 1 [facility], [facility] [address] [place] [phone] 12/13/2024 6:45 EST Treatment [facility] [place] [address] [place] [address] Carlota Jin MD [address] [place] [address], [facility] [address] [place] [phone] 12/15/2024 6:45 EST Treatment [facility] [place] [address] [place], [place] [phone] Carlota Jin MD 1 [facility], [facility] [address] [place] [phone] 12/18/2024 6:45 EST Treatment [facility] [place] [address] [place], [place] [phone] Carlota Jin MD 1 [facility], [facility] [address] [place] [phone] 12/20/2024 6:45 EST Treatment [facility] [place] [address] [place], [place] [phone] Carlota Jin MD 1 [facility], [facility] 2 [place] [phone] 12/22/2024 6:45 EST Treatment [facility] [place] [address] [place], [place] [phone] Carlota Jin MD 1 [facility], [facility] 2 [place] [phone] 12/25/2024 6:45 EST Treatment [facility] [place] [address] [place], [place] [phone] Carlota Jin MD 1 [facility], [facility] 2 [place] [phone] 12/27/2024 6:45 EST Treatment [facility] [place] [address] [place] [address] Carlota Jin MD 1 [facility], [facility] 2 [place] [phone] 12/29/2024 6:45 EST Treatment [facility] [place] [address] [place], [place] [phone] Carlota Jin MD 1 [facility], [facility] 2 [place] [phone] 01/01/2025 6:45 EDT Treatment [facility] [place] [address] [place], [place] [phone] Carlota Jin MD 1 [facility], [facility] 2 [place] [phone] 01/03/2025 6:45 EDT Treatment [facility] [place] [address] [place], [place] [phone] Carlota Jin MD 1 [facility], [facility] 2 [place] [phone] 01/05/2025 6:45 EDT Treatment [facility] [place] [address] [place], [place] [phone] Carlota Jin MD 1 [facility], [facility] 2 [place] [phone] 01/08/2025 6:45 EDT Treatment [facility] [place] [address] [place] [address] Carlota Jin MD [address] [place] [address], [address] [phone] 01/10/2025 6:45 EDT Treatment [facility] [place] [address] [place], [place] [phone] Carlota Jin MD 1 [facility], [facility] 2 [place] [phone] 01/12/2025 6:45 EDT Treatment [facility] [place] [address] [place], [place] [phone] Carlota Jin MD 1 [facility], [facility] 2 [place] [phone] 01/15/2025 6:45 EDT Treatment [facility] [place] [address] [place] [address] Carlota Jin MD 1 [facility], [facility] 2 [place] [phone] 01/17/2025 6:45 EDT Treatment [facility] [place] [address] [place] [address] Carlota Jin MD 1 [facility], [facility] 2 [place] [phone] 01/19/2025 6:45 EDT Treatment [facility] [place] [address] [place] [address] Carlota Jin MD 1 [facility], [address] [phone] 01/22/2025 6:45 EDT Treatment [facility] [place] [address] [place] [address] Carlota Jin MD 1 [facility], [facility] 2 [place] [phone] 01/24/2025 6:45 EDT Treatment [facility] [place] [address] [place] [address] Carlota Jin MD 1 [facility], [facility] 2 [place] [phone] 01/26/2025 6:45 EDT Treatment [facility] [place] [address] [place], [place] [phone] Carlota Jin MD 1 [facility], [facility] 2 [place] [phone] 01/29/2025 6:45 EDT Treatment [facility] [place] [address] [place], [place] [address] Carlota Jin MD 1 [facility], [facility] 2 [place] [phone] 01/31/2025 6:45 EDT Treatment [facility] [place] [address] [place], [place] [phone] Carlota Jin MD [address] [place] [address], [facility] 2 [place] [phone] 02/02/2025 6:45 EDT Treatment [facility] [place] [address] [place], [place] [address] Carlota Jin MD 1 [facility], [facility] 2 [place] [phone] 02/05/2025 6:45 EDT Treatment [facility] [place] [address] [place] [address] Carlota Jin MD [address] [place] [address], [facility] 2 [place] [phone] 02/07/2025 6:45 EDT Treatment [facility] [place] [address] [place], [place] [phone] Carlota Jin MD 1 [facility], [facility] 2 [place] [phone] 02/09/2025 6:45 EDT Treatment [facility] [place] [address] [place], [place] [address] Carlota Jin MD 1 [facility], [address] [phone] 02/12/2025 6:45 EDT Treatment [facility] [place] [address] [place], [place] [phone] Carlota Jin MD 1 [facility], [address] [phone] 02/14/2025 6:45 EDT Treatment [facility] [place] [address] [place], [place] [phone] Carlota Jin MD 1 [facility], [address] [phone] 02/16/2025 6:45 EDT Treatment [facility] [place] [address] [place], [place] [phone] Carlota Jin MD [address] [phone] 02/19/2025 6:45 EDT Treatment [facility] [place] [address] [place], [place] [phone] Carlota Jin MD [address] [phone] 02/21/2025 6:45 EDT Treatment [facility] [place] [address] [place], [place] [phone] Carlota Jin MD 1 [facility], [address] [phone] documented as of this encounter Procedures Procedure Name Priority Date/Time Associated Diagnosis Comments COMPLETE BLOOD COUNT Routine 09/22/2023 6:38 EST ESRD (end stage renal disease) ([facility]) HEMODIALYSIS Routine 09/22/2023 6:34 EST ESRD (end stage renal disease) ([facility]) documented in this encounter Results * (ABNORMAL) COMPLETE BLOOD COUNT (09/22/2023 6:38 EST) WBC 7.49 4.00 - 10.40 K/cmm 09/22/2023 21:24 [facility] RBC 3.19(L) 4.36 - 5.78 M/cmm 09/22/2023 21:24 [facility] Hemoglobin 10.0(L) 13.8 - 17.3 g/dL 09/22/2023 21:24 [facility] HCT 30.4(L) 39.5 - 50.2 % 09/22/2023 21:24 [facility] MCV 95 81 - 95 fL 09/22/2023 21:24 [facility] MCH 31.3 27.6 - 33.0 pg 09/22/2023 21:24 [facility] MCHC 32.9 32.8 - 36.4 g/dL 09/22/2023 21:24 [facility] RDW-CV 12.3 <14.2 % 09/22/2023 21:24 [facility] RDW-SD 42.5 <46.0 fl 09/22/2023 21:24 [facility] PLT 231 141 - 377 K/cmm 09/22/2023 21:24 [facility] MPV 11.9 9.5 - 12.7 fL 09/22/2023 21:24 [facility] Blood VENOUS BLOOD / Unknown Venipuncture / Unknown 09/22/2023 6:38 EST 09/22/2023 6:38 EST us Carlota Jin MD HEMATOLOGY & PF4 ORDERABL ES Final Result [facility] [address] [place] [address] documented in this encounter Visit Diagnoses Diagnosis ESRD (end stage renal disease) ([facility])- Primary End stage renal disease Anemia of chronic renal failure, unspecified CKD stage Hypoalbuminemia Other disorders of plasma protein metabolism Secondary hyperparathyroidism ([facility]) Secondary hyperparathyroidism (of renal origin) documented in this encounter Administered Medications Inactive Administered Medications - up to 3 most recent administrations Medication Order MAR Action Action Date Dose Rate Site calcium carbonate (TUMS) tablet 500 mg (200 mg elemental calcium) 2 Tablet 2 Tablet, oral, ONCE IN DIALYSIS, 1 dose, On Wed09/22/23 at 0700, Routine, DialysisIndications:ESRD (end stage renal disease) ([facility]),Secondary hyperparathyroidism ([facility]) Given 09/22/2023 6:52 EST 2 Tablets epoetin ken (EPOGEN) 20,000 unit/2 mL injection 1,500 Units 1,500 Units, intravenous, ONCE IN DIALYSIS, 1 dose, On Wed09/22/23 at 0700, Routine, DialysisIndications:ESRD (end stage renal disease) ([facility]),Anemia of chronic renal failure, unspecified CKD stage Given 09/22/2023 6:52 EST 1,500 Units heparin injection 9,000 Units 9,000 Units, intravenous, ONCE IN DIALYSIS, 1 dose, On Wed09/22/23 at 0700, Routine, Dialysis, Now x1 bolus 4500 units to be given at the beginning of dialysis 1500 units/hour to be given over the course of dialysis (9000 units total). Stop 1 hour prior to end of treatment. To be administered per Policy [id number].Indications:ESRD (end stage renal disease) ([facility]) Given 09/22/2023 6:52 EST 9,000 Units LiquaCel liquid protein liquid 30 mL 30 mL, oral, ONCE IN DIALYSIS, 1 dose, On Wed09/22/23 at 0700, RoutineIndications:Hypoalbuminemi a,ESRD (end stage renal disease) ([facility]) Given 09/22/2023 6:52 EST 30 mL documented in this encounter Orders Dialysis Count Last Ordered Date First Orde red Date HEMODIALYSIS 1 09/22/2023 documented in this encounter Care Teams Nickel Plater Relationship Specialty Start Date End Date Ken Greer MD [address] [place] [address] PCP - General 07/07/23 documented as of this encounter
--- OUTSIDE RECORDS SUMMARY | 2024-12-05 12:17 | XMS_ITS | Encounter Summary ---
Author Organization [facility] Address [address] [place] [address] Care Team Providers Care Head Stock Operator Name Role Phone Ken Greer MD Primary Care Provider [phone] Encounter Details Date Type Department Care Team (Late st Contact Info) Description 09/29/2023 Documentation Visit [facility] [address] [place], [place] [address] Marcela Cox, VIDYA Social History Tobacco Use [...] as of this encounter Progress Notes * Marcela Cox RN - 09/29/2023 1114 EST 09/29/23 11:19 [facility] DIALYS[facility] MEDICATION RECONCILIATION Medication review of home medications (prescriptions, ddol-dpq-chhiggo, herbals, vitamin/mineral/dietary (nutritional) supplements, medical marijuana, and recreational) was completed through: Patient/caregiver given printed prescriptions/medication summary and reviewed for accuracy. Current Medications Current Outpatient Medications Medication ??? amLODIPine (NORVASC) 10 mg tablet ??? atorvastatin (LIPITOR) 40 mg tablet ??? calcium carbonate (TUMS) 200 mg calcium (500 mg) tablet,chewable ??? carvediloL (COREG) 12.5 mg tablet ??? famotidine (PEPCID) 40 mg tablet ??? FLOVENT HFA 110 mcg/actuation inhaler ??? furosemide (LASIX) 20 mg tablet ??? LEVEMIR FLEXPEN 100 unit/mL (3 mL) injectable pen ??? MULTIVITAMIN ORAL ??? olmesartan (BENICAR) 5 mg tablet ??? pregabalin (LYRICA) 150 mg capsule ??? VICTOZA 3-JULY 0.6 mg/0.1 mL (18 mg/3 mL) injectable pen No current facility-administered medications for this visit. Facility-Administered Medications Ordered in Other Visits Medication Route Frequency ??? acetaminophen (TYLENOL) tablet 650 mg oral Q4H PRN Marcela Cox RN documented in this encounter Plan of Treatment Upcoming Encounters Date Type Department Care Team (Late st Contact Info) Description 12/06/2024 6:45 EST Treatment [facility] [address] [place], [place] [phone] Carlota Jin MD [address] [place] [phone] 12/08/2024 6:45 EST Treatment [facility] [address] [place], [place] [phone] Carlota Jin MD [address] [place] [phone] 12/11/2024 6:45 EST Treatment [facility] [address] [place], [place] [phone] Carlota Jin MD [address] [place] [address] [address] [place] [phone] 12/13/2024 6:45 EST Treatment [facility] [place] [address] [place], [place] [phone] Carlota Jin MD [address] [facility], [facility] 2 [place] [phone] 12/15/2024 6:45 EST Treatment [facility] [place] [address] [place], [place] [phone] Carlota Jin MD 1 [facility], [facility] 2 [place] [phone] 12/18/2024 6:45 EST Treatment [facility] [place] [address] [place], [place] [phone] Carlota Jin MD [address] [place] [address], [facility] [address] [place] [phone] 12/20/2024 6:45 EST Treatment [facility] [place] [address] [place], [place] [phone] Carlota Jin MD 1 [facility], [facility] 2 [place] [phone] 12/22/2024 6:45 EST Treatment [facility] [place] [address] [place], [place] [phone] Carlota Jin MD [address] [facility], [facility] [address] [place] [phone] 12/25/2024 6:45 EST Treatment [facility] [place] [address] [place], [place] [phone] Carlota Jin MD 1 [facility], [facility] 2 [place] [phone] 12/27/2024 6:45 EST Treatment [facility] [place] [address] [place], [place] [address] Carlota Jin MD 1 [facility], [facility] 2 [place] [phone] 12/29/2024 6:45 EST Treatment [facility] [address] [place], [place] [phone] Carlota Jin MD [address] [facility], [facility] [address] [place] [phone] 01/01/2025 6:45 EDT Treatment [facility] [place] [address] [place], [place] [phone] Carlota Jin MD [address] [facility], [facility] [address] [place] [phone] 01/03/2025 6:45 EDT Treatment [facility] [address] [place], [place] [phone] Carlota Jin MD [address] [facility], [facility] 2 [place] [phone] 01/05/2025 6:45 EDT Treatment [facility] [address] [place], [place] [phone] Carlota Jin MD [address] [facility], [facility] 2 [place] [phone] 01/08/2025 6:45 EDT Treatment [facility] [place] [address] [place], [place] [phone] Carlota Jin MD [address] [facility], [facility] 2 [place] [phone] 01/10/2025 6:45 EDT Treatment [facility] [place] [address] [place], [place] [phone] Carlota Jin MD [address] [facility], [facility] 2 [place] [phone] 01/12/2025 6:45 EDT Treatment [facility] [place] [address] [place], [place] [phone] Carlota Jin MD 1 [facility], [address] [phone] 01/15/2025 6:45 EDT Treatment [facility] [place] [address] [place], [place] [phone] Carlota Jin MD [address] [facility], [facility] 2 [place] [phone] 01/17/2025 6:45 EDT Treatment [facility] [place] [address] [place], [place] [phone] Carlota Jin MD [address] [facility], [facility] [address] [place] [phone] 01/19/2025 6:45 EDT Treatment [facility] [place] [address] [place], [place] [phone] Carlota Jin MD [address] [facility], [facility] [address] [place] [phone] 01/22/2025 6:45 EDT Treatment [facility] [place] [address] [place], [place] [phone] Carlota Jin MD [address] [facility], [address] [phone] 01/24/2025 6:45 EDT Treatment [facility] [place] [address] [place], [place] [phone] Carlota Jin MD [address] [facility], [address] [phone] 01/26/2025 6:45 EDT Treatment [facility] [place] [address] [place], [place] [phone] Carlota Jin MD [address] [facility], [address] [phone] 01/29/2025 6:45 EDT Treatment [facility] [place] [address] [place], [place] [phone] Carlota Jin MD [address] [facility], [facility] 2 [place] [phone] 01/31/2025 6:45 EDT Treatment [facility] [place] [address] [place], [place] [phone] Carlota Jin MD [address] [facility], [facility] 2 [place] [phone] 02/02/2025 6:45 EDT Treatment [facility] [place] [address] [place], [place] [phone] Carlota Jin MD [address] [facility], [facility] 2 [place] [phone] 02/05/2025 6:45 EDT Treatment [facility] [place] [address] [place], [place] [phone] Carlota Jin MD [address] [facility], [facility] 2 [place] [phone] 02/07/2025 6:45 EDT Treatment [facility] [place] [address] [place] [address] Carlota Jin MD [address] [place] [address], [address] [phone] 02/09/2025 6:45 EDT Treatment [facility] [place] [address] [place], [place] [phone] Carlota Jin MD [address] [place] [address], [facility] [address] [place] [phone] 02/12/2025 6:45 EDT Treatment [facility] [place] [address] [place], [place] [phone] Carlota Jin MD 1 [facility], [facility] [address] [place] [phone] 02/14/2025 6:45 EDT Treatment [facility] [place] [address] [place], [place] [phone] Carlota Jin MD [address] [place] [address], [facility] [address] [place] [phone] 02/16/2025 6:45 EDT Treatment [facility] [address] [place], [place] [phone] Carlota Jin MD [address] [place] [address], [facility] [address] [place] [phone] 02/19/2025 6:45 EDT Treatment [facility] [address] [place], [place] [phone] Carlota Jin MD [address] [place] [address], [address] [phone] 02/21/2025 6:45 EDT Treatment [facility] [address] [place], [place] [phone] Carlota Jin MD [address] [place] [address] 2 [place] [phone] documented as of this encounter Visit Diagnoses Not on filedocumented in this encounter Discontinued Medications Medication Sig Discontinue Reason Start Date End Da te albuterol 90 mcg/actuation inhaler Therapy completed 01/12/2023 09/29/20 cholecalciferol, Vitamin D3, 25 mcg (1,000 unit) tablet Take 2 Tablets by mouth daily. Therapy completed 12/09/2022 09/29/2023 ciprofloxacin HCl (CIPRO) 500 mg tablet TAKE ONE TABLET BY MOUTH EVERY DAY FOR 10 DAYS Therapy completed 09/03/2023 09/29/2023 hydrOXYzine (ATARAX) 25 mg tablet Take 1 Tablet by mouth at bedtime. Therapy completed 09/29/2023 insulin lispro (HUMALOG KWIKPEN INSULIN) 100 unit/mL injectable pen Inject 10-20 Units into the skin daily. Therapy completed 09/29/2023 nicotine (NICODERM CQ) 21 mg/[address] 1 Patch onto the skin daily. Therapy completed 09/29/2023 sevelamer hydrochloride (RENAGEL) 800 mg tablet Take 2 Tablets by mouth 3 times daily. Therapy completed 12/02/2022 09/29/2023 sildenafil citrate (VIAGRA) 100 mg tablet Take 1 Tablet by mouth as needed for Erectile Dysfunction. Therapy completed 09/29/2023 documented as of this encounter Care Teams Head Stock Operator Relationship Specialty Start Date End Date Ken Greer MD [facility] [place] [address] PCP - General 07/07/23 documented as of this encounter
--- OUTSIDE RECORDS SUMMARY | 2024-12-05 12:17 | XMS_ITS | Encounter Summary ---
Author Organization [facility] Address [address] [place] [address] Care Team Providers Care Patient Appointment Coordinator Name Role Phone Ken Greer MD Primary Care Provider [phone] Encounter Details Date Type Department Care Team (Latest Contact Info) Description 09/29/2023 6:45 EST Treatment [facility] [address] [place], [place] [id number] Carlota Jin MD 1 [facility], Level [address] [place] [address] ESRD (end stage renal disease) ([facility]) (Primary Dx); Anemia of chronic renal failure, unspecified CKD stage; Hypoalbuminemia; Secondary hyperparathyroidism ([facility]) Social History Tobacco Use Types Packs/Day [...] - Temperature - - Respiratory Rate 16 09/29/2023 0634 EST Oxygen Saturation - - Inhaled Oxygen Concentration - - Weight 88.9 kg (195 lb 15.8 oz) 09/29/2023 0632 EST Height - - Body Mass Index 28.94 07/08/2023 0839 EDT documented in this encounter Miscellaneous Notes * Flowsheet Note - Marcela Cox RN - 09/29/2023 1141 EST 09/29/23 1050 Post-Hemodialysis Assessment Total Blood Processed (L) 86.54 Liters On Line Clearance: spKt/V 1.43 spKt/V Dialyzer Clearance Lightly streaked Treatment UFR (ml:kg:hr) 6.24 ml:kg:hr Fluid Removed (L) 3 L Post-Dialysis Scale Weight 88.1 kg (194 lb 3.6 oz) Wheelchair Weight 0 kg (0 lb) Prosthesis Weight 1.4 kg (3 lb 1.4 oz) Post-Treatment Weight (kg) 86.7 Treatment Weight Change (kg) 2.2 kg Day Target Weight (kg) 86.4 Post Sitting/Lying BP 152/87 Post Sitting/Lying pulse 64 Post Standing BP 148/74 Post Standing Pulse 69 Temp 36.2 ??C (97.2 ??F) Temp [...] 12/06/2024 6:45 EST Treatment [facility] [place] [address] [place] [address] Carlota Jin MD 1 [facility], Level [address] [place] [address] 12/08/2024 6:45 EST Treatment [facility] - [place] [address] [place], [place] [address] Carlota Jin MD 1 [facility], [facility] 2 [place] [phone] 12/11/2024 6:45 EST Treatment [facility] - [place] [address] [place], [place] [phone] Carlota Jin MD 1 [facility], [facility] 2 [place] [phone] 12/13/2024 6:45 EST Treatment [facility] - [place] [address] [place], [place] [id number] Carlota Jin MD 1 [facility], [facility] 2 [place] [phone] 12/15/2024 6:45 EST Treatment [facility] - [place] [address] [place], [place] [phone] Carlota Jin MD 1 [facility], [address] [phone] 12/18/2024 6:45 EST Treatment [facility] - [place] [address] [place], [place] [phone] Carlota Jin MD 1 [facility], [facility] 2 [place] [phone] 12/20/2024 6:45 EST Treatment [facility] - [place] [address] [place], [place] [id number] Carlota Jin MD 1 [facility] 2 [place] [phone] 12/22/2024 6:45 EST Treatment [facility] - [place] [address] [place], [place] [phone] Carlota Jin MD 1 [facility], [facility] 2 [place] [phone] 12/25/2024 6:45 EST Treatment [facility] - [place] [address] [place], [place] [phone] Carlota Jin MD 1 [facility], [facility] 2 [place] [phone] 12/27/2024 6:45 EST Treatment [facility] - [place] [address] [place], [place] [phone] Carlota Jin MD 1 [facility], [facility] 2 [place] [phone] 12/29/2024 6:45 EST Treatment [facility] D[facility] [address] [place], [place] [phone] Carlota Jin MD 1 [facility], [facility] 2 [place] [phone] 01/01/2025 6:45 EDT Treatment [facility] [address] [place], [place] [phone] Carolta Jin MD 1 [facility], [facility] 2 [place] [phone] 01/03/2025 6:45 EDT Treatment [facility] - [place] [address] [place], [place] [phone] Carlota Jin MD 1 [facility], [facility] 2 [place] [phone] 01/05/2025 6:45 EDT Treatment [facility] - [place] [address] [place], [place] [phone] Carlota Jin MD [address] [place] [address], [address] [phone] 01/08/2025 6:45 EDT Treatment [facility] - [place] [address] [place], [place] [phone] Carlota Jin MD [address] [place] [address], [address] [phone] 01/10/2025 6:45 EDT Treatment [facility] - [place] [address] [place], [place] [phone] Carlota Jin MD [address] [place] [address], [address] [phone] 01/12/2025 6:45 EDT Treatment [facility] - [place] [address] [place], [place] [phone] Carlota Jin MD [address] [place] [address], [facility] 2 [place] [phone] 01/15/2025 6:45 EDT Treatment [facility] - [place] [address] [place], [place] [phone] Carlota Jin MD 1 [facility], Level [address] [place] [phone] 01/17/2025 6:45 EDT Treatment [facility] - [place] [address] [place], [place] [address] Carlota Jin MD 1 [facility], [facility] 2 [place] [phone] 01/19/2025 6:45 EDT Treatment [facility] [address] [place], [place] [phone] Carlota Jin MD 1 [facility], [facility] 2 [place] [phone] 01/22/2025 6:45 EDT Treatment [facility] - [place] [address] [place], [place] [phone] Carlota Jin MD 1 [facility], [facility] 2 [place] [phone] 01/24/2025 6:45 EDT Treatment [facility] [address] [place], [place] [phone] Carlota Jin MD 1 [facility], [facility] 2 [place] [phone] 01/26/2025 6:45 EDT Treatment [facility] [address] [place], [place] [phone] Carlota Jin MD 1 [facility], [facility] 2 [place] [phone] 01/29/2025 6:45 EDT Treatment [facility] - [place] [address] [place], [place] [phone] Carlota Jin MD 1 [facility], [facility] 2 [place] [phone] 01/31/2025 6:45 EDT Treatment [facility] - [place] [address] [place], [place] [phone] Carlota Jin MD 1 [facility], [facility] 2 [place] [phone] 02/02/2025 6:45 EDT Treatment [facility] - [place] [address] [place] [address] Carlota Jin MD [address] [place] [address], [facility] 2 [place] [phone] 02/05/2025 6:45 EDT Treatment [facility] - [place] [address] [place], [place] [phone] Carlota Jin MD 1 [facility], [facility] 2 [place] [phone] 02/07/2025 6:45 EDT Treatment [facility] - [place] [address] [place], [place] [phone] Carlota Jin MD 1 [facility], [facility] 2 [place] [phone] 02/09/2025 6:45 EDT Treatment [facility] - [place] [address] [place], [place] [phone] Carlota Jin MD 1 [facility], [facility] 2 [place] [phone] 02/12/2025 6:45 EDT Treatment [facility] - [place] [address] [place], [place] [phone] Carlota Jin MD 1 [facility], [facility] 2 [place] [phone] 02/14/2025 6:45 EDT Treatment [facility] - [place] [address] [place] [address] Carlota Jin MD 1 [facility], [address] [phone] 02/16/2025 6:45 EDT Treatment [facility] - [place] [address] [place], [place] [phone] Carlota Jin MD 1 [facility], [address] [phone] 02/19/2025 6:45 EDT Treatment [facility] - [place] [address] [place] [address] Carlota Jin MD 1 [facility], [facility] 2 [place] [phone] 02/21/2025 6:45 EDT Treatment [facility] - [place] [address] [place], [place] [phone] Carlota Jin MD 1 [facility], [facility] 2 [place] [phone] documented as of this encounter Procedures Procedure Name Priority Date/Time Associated Diagnosis Comments COMPLETE BLOOD COUNT Routine 09/29/2023 6:39 EST ESRD (end stage renal disease) ([facility]) HEMODIALYSIS Routine 09/29/2023 6:35 EST ESRD (end stage renal disease) ([facility]) documented in this encounter Results * (ABNORMAL) COMPLETE BLOOD COUNT (09/29/2023 6:39 EST) WBC 7.58 4.00 - 10.40 K/cmm 09/29/2023 21:12 [facility] RBC 3.33(L) 4.36 - 5.78 M/cmm 09/29/2023 21:12 [facility] Hemoglobin 10.6(L) 13.8 - 17.3 g/dL 09/29/2023 21:12 [facility] HCT 31.5(L) 39.5 - 50.2 % 09/29/2023 21:12 [facility] MCV 95 81 - 95 fL 09/29/2023 21:12 [facility] MCH 31.8 27.6 - 33.0 pg 09/29/2023 21:12 [facility] MCHC 33.7 32.8 - 36.4 g/dL 09/29/2023 21:12 [facility] RDW-CV 12.6 <14.2 % 09/29/2023 21:12 [facility] RDW-SD 43.3 <46.0 fl 09/29/2023 21:12 [facility] PLT 278 141 - 377 K/cmm 09/29/2023 21:12 [facility] MPV 11.9 9.5 - 12.7 fL 09/29/2023 21:12 [facility] Blood VENOUS BLOOD / Unknown Venipuncture / Unknown 09/29/2023 6:39 EST 09/29/2023 6:39 EST us Carlota Jin MD HEMATOLOGY & PF4 ORDERABL ES Final Result [facility] [address] [place] [address] documented in this encounter Visit Diagnoses Diagnosis ESRD (end stage renal disease) ([facility])- Primary End stage renal disease Anemia of chronic renal failure, unspecified CKD stage Hypoalbuminemia Other disorders of plasma protein metabolism Secondary hyperparathyroidism ([facility]) Secondary hyperparathyroidism (of renal origin) documented in this encounter Administered Medications Inactive Administered Medications - up to 3 most recent administrations Medication Order MAR Action Action Date Dose Rate Site acetaminophen (TYLENOL) tablet 650 mg 650 mg, oral, EVERY 4 HOURS PRN, Starting on Wed09/29/23 at 0636, Until Wed09/29/23 at 1341, Pain, Routine, DialysisIndications:ESRD (end stage renal disease) ([facility]) Given 09/29/2023 6:54 EST 650 mg calcium carbonate (TUMS) tablet 500 mg (200 mg elemental calcium) 2 Tablet 2 Tablet, oral, ONCE IN DIALYSIS, 1 dose, On Wed09/29/23 at 0700, Routine, DialysisIndications:ESRD (end stage renal disease) ([facility]),Secondary hyperparathyroidism ([facility]) Given 09/29/2023 6:54 EST 2 Tablets epoetin ken (EPOGEN) 20,000 unit/2 mL injection 1,500 Units 1,500 Units, intravenous, ONCE IN DIALYSIS, 1 dose, On Wed09/29/23 at 0700, Routine, DialysisIndications:ESRD (end stage renal disease) ([facility]),Anemia of chronic renal failure, unspecified CKD stage Given 09/29/2023 6:54 EST 1,500 Units heparin injection 9,000 Units 9,000 Units, intravenous, ONCE IN DIALYSIS, 1 dose, On Wed09/29/23 at 0700, Routine, Dialysis, Now x1 bolus 4500 units to be given at the beginning of dialysis 1500 units/hour to be given over the course of dialysis (9000 units total). Stop 1 hour prior to end of treatment. To be administered per Policy [id number].Indications:ESRD (end stage renal disease) ([facility]) Given 09/29/2023 6:54 EST 9,000 Units LiquaCel liquid protein liquid 30 mL 30 mL, oral, ONCE IN DIALYSIS, 1 dose, On Wed09/29/23 at 0700, RoutineIndications:Hypoalbuminemi a,ESRD (end stage renal disease) ([facility]) Given 09/29/2023 6:54 EST 30 mL documented in this encounter Orders Dialysis Count Last Ordered Date First Orde red Date HEMODIALYSIS 1 09/29/2023 documented in this encounter Care Teams Patient Appointment Coordinator Relationship Specialty Start Date End Date Ken Greer MD [address] [place] [address] PCP - General 07/07/23 documented as of this encounter
--- OUTSIDE RECORDS SUMMARY | 2024-12-05 12:17 | XMS_ITS | Encounter Summary ---
Author Organization [facility] Address [address] [place] [address] Care Team Providers Care Environmental Services Associate Name Role Phone Ken Greer MD Primary Care Provider [phone] Encounter Details Date Type Department Care Team (Late st Contact Info) Description 09/24/2023 Documentation Visit [facility] [address] [place], [place] [address] Melissa Crespo, RN Social History Tobacco Use [...] Contact Info) Description 12/06/2024 6:45 EST Treatment [facility] - [place] [address] [place] [phone] Carlota Jin MD 1 [facility], Level [address] [place] [phone] 12/08/2024 6:45 EST Treatment [facility] [address] [place] [phone] Carlota Jin MD 1 [facility] [address] [place] [phone] 12/11/2024 6:45 EST Treatment [facility] - [place] [address] [place], [place] [address] [phone] Carlota Jin MD 1 [facility], [facility] [address] [place] [phone] 12/13/2024 6:45 EST Treatment [facility] [place] [address] [place] [address] Carlota Jin MD 1 [facility], [facility] 2 [place] [phone] 12/15/2024 6:45 EST Treatment [facility] [place] [address] [place] [address] Carlota Jin MD 1 [facility], [facility] 2 [place] [phone] 12/18/2024 6:45 EST Treatment [facility] [place] [address] [place] [address] Carlota Jin MD 1 [facility], [facility] [address] [place] [phone] 12/20/2024 6:45 EST Treatment [facility] [place] [address] [place], [place] [phone] Carlota Jin MD 1 [facility], [facility] [address] [place] [phone] 12/22/2024 6:45 EST Treatment [facility] [place] [address] [place], [place] [phone] Carlota Jin MD 1 [facility], [facility] 2 [place] [phone] 12/25/2024 6:45 EST Treatment [facility] - [place] [address] [place], [place] [phone] Carlota Jin MD 1 [facility], [facility] 2 [place] [phone] 12/27/2024 6:45 EST Treatment [facility] - [place] [address] [place], [place] [phone] Carlota Jin MD 1 [facility], [facility] [address] [place] [phone] 12/29/2024 6:45 EST Treatment [facility] [place] [address] [place], [place] [address] Carlota Jin MD 1 [facility], [facility] [address] [place] [phone] 01/01/2025 6:45 EDT Treatment [facility] [place] [address] [place], [place] [phone] Carlota Jin MD 1 [facility], [facility] [address] [place] [phone] 01/03/2025 6:45 EDT Treatment [facility] [place] [address] [place], [place] [phone] Carlota Jin MD 1 [facility], [facility] [address] [place] [phone] 01/05/2025 6:45 EDT Treatment [facility] - [place] [address] [place] [address] Carlota Jin MD 1 [facility], [facility] 2 [place] [phone] 01/08/2025 6:45 EDT Treatment [facility] [place] [address] [place], [place] [id number] Carlota Jin MD 1 [facility], [address] [phone] 01/10/2025 6:45 EDT Treatment [facility] - [place] [address] [place], [place] [phone] Carlota Jin MD 1 [facility], [address] [phone] 01/12/2025 6:45 EDT Treatment [facility] - [place] [address] [place], [place] [phone] Carlota Jin MD 1 [facility], [address] [phone] 01/15/2025 6:45 EDT Treatment [facility] [place] [address] [place], [place] [id number] Carlota Jin MD 1 [facility], [facility] [address] [place] [phone] 01/17/2025 6:45 EDT Treatment [facility] [place] [address] [place], [place] [id number] Carlota Jin MD 1 [facility], [facility] 2 [place] [phone] 01/19/2025 6:45 EDT Treatment [facility] - [place] [address] [place], [place] [phone] Carlota Jin MD 1 [facility], [facility] [address] [place] [phone] 01/22/2025 6:45 EDT Treatment [facility] [place] [address] [place] [address] Carlota Jin MD 1 [facility], [facility] [address] [place] [phone] 01/24/2025 6:45 EDT Treatment [facility] [place] [address] [place], [place] [id number] Carlota Jin MD 1 [facility], [facility] [address] [place] [phone] 01/26/2025 6:45 EDT Treatment [facility] [place] [address] [place], [place] [id number] Carlota Jin MD 1 [facility], [facility] 2 [place] [phone] 01/29/2025 6:45 EDT Treatment [facility] [place] [address] [place], [place] [address] Carlota Jin MD 1 [facility], [facility] 2 [place] [phone] 01/31/2025 6:45 EDT Treatment [facility] - [place] [address] [place], [place] [phone] Carlota Jin MD 1 [facility], [facility] [address] [place] [phone] 02/02/2025 6:45 EDT Treatment [facility] - [place] [address] [place], [place] [id number] Carlota Jin MD 1 [facility], [facility] [address] [place] [phone] 02/05/2025 6:45 EDT Treatment [facility] - [place] [address] [place], [place] [phone] Carlota Jin MD 1 [facility], [facility] 2 [place] [phone] 02/07/2025 6:45 EDT Treatment [facility] [place] [address] [place], [place] [id number] Carlota Jin MD 1 [facility], [facility] 2 [place] [phone] 02/09/2025 6:45 EDT Treatment [facility] - [place] [address] [place], [place] [phone] Carlota Jin MD 1 [facility], [facility] [address] [place] [phone] 02/12/2025 6:45 EDT Treatment [facility] [place] [address] [place], [place] [address] Carlota Jin MD 1 [facility], [facility] [address] [place] [phone] 02/14/2025 6:45 EDT Treatment [facility] [place] [address] [place], [place] [id number] Carlota Jin MD 1 [facility], [facility] 2 [place] [phone] 02/16/2025 6:45 EDT Treatment [facility] [place] [address] [place], [place] [id number] Carlota Jin MD 1 [facility], [facility] [address] [place] [phone] 02/19/2025 6:45 EDT Treatment [facility] [place] [address] [place] [address] Carlota Jin MD 1 [facility], [facility] [address] [place] [phone] 02/21/2025 6:45 EDT Treatment [facility] [place] [address] [place], [place] [phone] Carlota Jin MD 1 [facility], [facility] [address] [place] [phone] documented as of this encounter Visit Diagnoses Not on filedocumented in this encounter Care Teams Environmental Services Associate Relationship Specialty Start Date End Date Ken Greer [place] [address] PCP - General 07/07/23 documented as of this encounter
--- OUTSIDE RECORDS SUMMARY | 2024-12-05 12:17 | XMS_ITS | Encounter Summary ---
Author Organization [facility] Address [address] [place] [address] Care Team Providers Care Mobile Equipment Mechanic Name Role Phone Ken Greer MD Primary Care Provider [phone] Encounter Details Date Type Department Care Team (Late st Contact Info) Description 09/22/2023 Orders Only [facility] [address] [place], [place] [address] Yoanna Degroot, RN Social History Tobacco Use [...] Info) Description 12/06/2024 6:45 EST Treatment [facility] [place] [address] [place] [id number] Carlota Jin MD 1 [facility], Level 2 [place] [phone] 12/08/2024 6:45 EST Treatment [facility] [address] [place] [id number] Carlota Jin MD 1 [facility], [facility] 2 [place] [phone] 12/11/2024 6:45 EST Treatment [facility] [place] [address] [place], [place] [address] [phone] Carlota Jin MD 1 [facility], [facility] 2 [place] [phone] 12/13/2024 6:45 EST Treatment [facility] [place] [address] [place] [address] Carlota Jin MD 1 [facility], [facility] 2 [place] [phone] 12/15/2024 6:45 EST Treatment [facility] [place] [address] [place] [address] Carlota Jin MD 1 [facility], [facility] 2 [place] [phone] 12/18/2024 6:45 EST Treatment [facility] [place] [address] [place] [address] Carlota Jin MD 1 [facility], [facility] 2 [place] [phone] 12/20/2024 6:45 EST Treatment [facility] [place] [address] [place], [place] [phone] Carlota Jin MD 1 [facility], [facility] 2 [place] [phone] 12/22/2024 6:45 EST Treatment [facility] [place] [address] [place], [place] [phone] Carlota Jin MD 1 [facility], [facility] 2 [place] [phone] 12/25/2024 6:45 EST Treatment [facility] [place] [address] [place], [place] [phone] Carlota Jin MD 1 [facility], [facility] 2 [place] [phone] 12/27/2024 6:45 EST Treatment [facility] [place] [address] [place], [place] [phone] Carlota Jin MD 1 [facility], [facility] 2 [place] [phone] 12/29/2024 6:45 EST Treatment [facility] [place] [address] [place], [place] [address] Carlota Jin MD 1 [facility], [facility] 2 [place] [phone] 01/01/2025 6:45 EDT Treatment [facility] [place] [address] [place], [place] [phone] Carlota Jin MD 1 [facility], [facility] 2 [place] [phone] 01/03/2025 6:45 EDT Treatment [facility] [place] [address] [place], [place] [phone] Carlota Jin MD 1 [facility], [facility] 2 [place] [phone] 01/05/2025 6:45 EDT Treatment [facility] [place] [address] [place] [address] Carlota Jin MD 1 [facility], [facility] 2 [place] [phone] 01/08/2025 6:45 EDT Treatment [facility] [place] [address] [place], [place] [phone] Carlota Jin MD 1 [facility], [address] [phone] 01/10/2025 6:45 EDT Treatment [facility] [place] [address] [place], [place] [phone] Carlota Jin MD 1 [facility], [address] [phone] 01/12/2025 6:45 EDT Treatment [facility] [place] [address] [place], [place] [phone] Carlota Jin MD 1 [facility], [address] [phone] 01/15/2025 6:45 EDT Treatment [facility] [place] [address] [place], [place] [phone] Carlota Jin MD 1 [facility], [facility] 2 [place] [phone] 01/17/2025 6:45 EDT Treatment [facility] [place] [address] [place], [place] [phone] Carlota Jin MD 1 [facility], [facility] 2 [place] [phone] 01/19/2025 6:45 EDT Treatment [facility] [place] [address] [place], [place] [phone] Carlota Jin MD 1 [facility], [facility] 2 [place] [phone] 01/22/2025 6:45 EDT Treatment [facility] [place] [address] [place] [address] Carlota Jin MD 1 [facility], [facility] 2 [place] [phone] 01/24/2025 6:45 EDT Treatment [facility] [place] [address] [place], [place] [phone] Carlota Jin MD 1 [facility], [facility] 2 [place] [phone] 01/26/2025 6:45 EDT Treatment [facility] [place] [address] [place], [place] [phone] Carlota Jin MD 1 [facility], [facility] 2 [place] [phone] 01/29/2025 6:45 EDT Treatment [facility] [place] [address] [place], [place] [address] Carlota Jin MD 1 [facility], [facility] 2 [place] [phone] 01/31/2025 6:45 EDT Treatment [facility] [place] [address] [place], [place] [phone] Carlota Jin MD 1 [facility], [facility] 2 [place] [phone] 02/02/2025 6:45 EDT Treatment [facility] [place] [address] [place], [place] [phone] Carlota Jin MD 1 [facility], [facility] 2 [place] [phone] 02/05/2025 6:45 EDT Treatment [facility] [place] [address] [place], [place] [phone] Carlota Jin MD 1 [facility], [facility] 2 [place] [phone] 02/07/2025 6:45 EDT Treatment [facility] [place] [address] [place], [place] [phone] Carlota Jin MD 1 [facility], [facility] 2 [place] [phone] 02/09/2025 6:45 EDT Treatment [facility] [place] [address] [place], [place] [phone] Carlota Jin MD 1 [facility], [facility] 2 [place] [phone] 02/12/2025 6:45 EDT Treatment [facility] [place] [address] [place], [place] [address] Carlota Jin MD 1 [facility], [facility] 2 [place] [phone] 02/14/2025 6:45 EDT Treatment [facility] [place] [address] [place], [place] [phone] Carlota Jin MD 1 [facility], [facility] 2 [place] [phone] 02/16/2025 6:45 EDT Treatment [facility] [place] [address] [place], [place] [id number] Carlota Jin MD 1 [facility], [facility] 2 [place] [phone] 02/19/2025 6:45 EDT Treatment [facility] [place] [address] [place] [address] Carlota Jin MD 1 [facility], [facility] 2 [place] [phone] 02/21/2025 6:45 EDT Treatment [facility] [place] [address] [place], [place] [phone] Carlota Jin MD 1 [facility], [facility] 2 [place] [phone] documented as of this encounter Visit Diagnoses Not on filedocumented in this encounter Care Teams Mobile Equipment Mechanic Relationship Specialty Start Date End Date Ken Greer MD [place] [address] PCP - General 07/07/23 documented as of this encounter
--- OUTSIDE RECORDS SUMMARY | 2024-12-05 12:17 | XMS_ITS | Encounter Summary ---
Author Organization [facility] Address [address] [place] [address] Care Team Providers Care Inspector Advanced Composite Name Role Phone Ken Greer MD Primary Care Provider [phone] Encounter Details Date Type Department Care Team (Latest Contact Info) Description 09/27/2023 6:45 EST Treatment [facility] [address] [place], [place] [phone] Carlota Jin MD 1 [facility], Level [address] [place] [address] ESRD (end stage renal disease) ([facility]) (Primary Dx); Anemia of chronic renal failure, unspecified CKD stage; Hypoalbuminemia; Secondary hyperparathyroidism ([facility]) Social History Tobacco Use Types Packs/Day Years [...] - Temperature - - Respiratory Rate 16 09/27/2023 0634 EST Oxygen Saturation - - Inhaled Oxygen Concentration - - Weight 91.6 kg (201 lb 15.1 oz) 09/27/2023 0630 EST Height - - Body Mass Index 29.82 07/08/2023 0839 EDT documented in this encounter Miscellaneous Notes * Flowsheet Note - Marcela Cox RN - 09/27/2023 1337 EST 09/27/23 1048 Post-Hemodialysis Assessment Total Blood Processed (L) 90.38 Liters On Line Clearance: spKt/V 1.37 spKt/V Dialyzer Clearance Lightly streaked Treatment UFR (ml:kg:hr) 10.73 ml:kg:hr Critline refill Not done Fluid Removed (L) 4 L Post-Dialysis Scale Weight 89.2 kg (196 lb 10.4 oz) Wheelchair Weight 0 kg (0 lb) Prosthesis Weight 1.4 kg (3 lb 1.4 oz) (Winter Boots) Post-Treatment Weight (kg) 87.8 Treatment Weight Change (kg) 3.8 kg Day Target Weight (kg) 88.1 Post Sitting/Lying BP 149/73 Post Sitting/Lying pulse 63 Post Standing BP 136/73 Post Standing Pulse 70 Temp 35.9 ??C (96.6 ??F) Temp [...] Contact Info) Description 12/06/2024 6:45 EST Treatment [facility] [place] [address] [place] [address] Carlota Jin MD 1 [facility], Level [address] [place] [address] 12/08/2024 6:45 EST Treatment [facility] [place] [address] [place], [place] [phone] Carlota Jin MD 1 [facility], [facility] 2 [place] [phone] 12/11/2024 6:45 EST Treatment [facility] [place] [address] [place], [place] [phone] Carlota Jin MD [address] [place] [address], [facility] 2 [place] [phone] 12/13/2024 6:45 EST Treatment [facility] [place] [address] [place], [place] [phone] Carlota Jin MD [address] [place] [address], [facility] 2 [place] [phone] 12/15/2024 6:45 EST Treatment [facility] [place] [address] [place], [place] [phone] Carlota Jin MD 1 [facility], [facility] 2 [place] [phone] 12/18/2024 6:45 EST Treatment [facility] [place] [address] [place], [place] [phone] Carlota Jin MD [address] [place] [address], [facility] 2 [place] [phone] 12/20/2024 6:45 EST Treatment [facility] [place] [address] [place], [place] [phone] Carlota Jin MD 1 [facility], Level [address] [place] [phone] 12/22/2024 6:45 EST Treatment [facility] [place] [address] [place], [place] [address] Carlota Jin MD 1 [facility], [facility] 2 [place] [phone] 12/25/2024 6:45 EST Treatment [facility] [place] [address] [place], [place] [id number] Carlota Jin MD 1 [facility], [facility] 2 [place] [phone] 12/27/2024 6:45 EST Treatment [facility] [place] [address] [place], [place] [phone] Carlota Jin MD 1 [facility], [facility] 2 [place] [phone] 12/29/2024 6:45 EST Treatment [facility] [place] [address] [place] [address] Carlota Jin MD 1 [facility], [facility] 2 [place] [phone] 01/01/2025 6:45 EDT Treatment [facility] [place] [address] [place], [place] [address] Carlota Jin MD 1 [facility], [facility] 2 [place] [phone] 01/03/2025 6:45 EDT Treatment [facility] [place] [address] [place], [place] [phone] Carlota Jin MD 1 [facility], [facility] 2 [place] [phone] 01/05/2025 6:45 EDT Treatment [facility] [place] [address] [place], [place] [id number] Carlota Jin MD [address] [place] [address], [address] [phone] 01/08/2025 6:45 EDT Treatment [facility] [place] [address] [place], [place] [id number] Carlota Jin MD [address] [place] [address], [address] [phone] 01/10/2025 6:45 EDT Treatment [facility] [place] [address] [place], [place] [phone] Carlota Jin MD [address] [place] [address], [facility] 2 [place] [phone] 01/12/2025 6:45 EDT Treatment [facility] [place] [address] [place], [place] [phone] Carlota Jin MD [address] [place] [address], [facility] 2 [place] [phone] 01/15/2025 6:45 EDT Treatment [facility] [place] [address] [place], [place] [phone] Carlota Jin MD 1 [facility], [facility] 2 [place] [phone] 01/17/2025 6:45 EDT Treatment [facility] [place] [address] [place], [place] [id number] Carlota Jin MD 1 [facility], [facility] 2 [place] [phone] 01/19/2025 6:45 EDT Treatment [facility] [place] [address] [place], [place] [id number] Carlota Jin MD 1 [facility], [facility] 2 [place] [phone] 01/22/2025 6:45 EDT Treatment [facility] [place] [address] [place], [place] [id number] Carlota Jin MD 1 [facility], [facility] 2 [place] [phone] 01/24/2025 6:45 EDT Treatment [facility] [address] [place], [place] [id number] Carlota Jin MD 1 [facility], [facility] 2 [place] [phone] 01/26/2025 6:45 EDT Treatment [facility] [place] [address] [place], [place] [phone] Carlota Jin MD 1 [facility], [facility] 2 [place] [phone] 01/29/2025 6:45 EDT Treatment [facility] [place] [address] [place], [place] [id number] Carlota Jin MD 1 [facility], [facility] 2 [place] [phone] 01/31/2025 6:45 EDT Treatment [facility] [place] [address] [place], [place] [id number] Carlota Jin MD 1 [facility], [facility] 2 [place] [phone] 02/02/2025 6:45 EDT Treatment [facility] [place] [address] [place], [place] [id number] Carlota Jin MD 1 [facility], [address] [phone] 02/05/2025 6:45 EDT Treatment [facility] [place] [address] [place] [address] Carlota Jin MD 1 [facility], [facility] 2 [place] [phone] 02/07/2025 6:45 EDT Treatment [facility] [place] [address] [place], [place] [id number] Carlota Jin MD 1 [facility], [facility] 2 [place] [phone] 02/09/2025 6:45 EDT Treatment [facility] [place] [address] [place], [place] [id number] Calrota Jin MD 1 [facility], [facility] 2 [place] [phone] 02/12/2025 6:45 EDT Treatment [facility] [place] [address] [place], [place] [id number] Carlota Jin MD 1 [facility], [address] [phone] 02/14/2025 6:45 EDT Treatment [facility] [place] [address] [place], [place] [id number] Carlota Jin MD 1 [facility], [address] [phone] 02/16/2025 6:45 EDT Treatment [facility] [place] [address] [place], [place] [id number] Carlota Jin MD 1 [facility], [address] [phone] 02/19/2025 6:45 EDT Treatment [facility] [place] [address] [place], [place] [id number] Carlota Jin MD 1 [facility], [facility] 2 [place] [phone] 02/21/2025 6:45 EDT Treatment [facility] [place] [address] [place], [place] [id number] Carlota Jin MD 1 [facility], [facility] 2 [place] [phone] documented as of this encounter Procedures Procedure Name Priority Date/Time Associated Diagnosis Comments POSTDIALYSIS BUN WITH URR CALCULATION Routine 09/27/2023 10:58 EST ESRD (end stage renal disease) ([facility]) TRANSFERRIN SATURATION Routine 09/27/2023 6:39 EST ESRD (end stage renal disease) ([facility]) DIALYSIS ROUTINE - DIALYSIS ONLY (BUN, K, NA, CL, CO2, SANJEEV, ALB, MG, PHOS, ALKP, AST) Routine 09/27/2023 6:39 EST ESRD (end stage renal disease) ([facility]) PROFILE IRON STUDIES (INCLUDES IRON, IBC, AND FERRITIN) Routine 09/27/2023 6:39 EST ESRD (end stage renal disease) ([facility]) FERRITIN Routine 09/27/2023 6:39 EST ESRD (end stage renal disease) ([facility]) HEMODIALYSIS Routine 09/27/2023 6:34 EST ESRD (end stage renal disease) ([facility]) documented in this encounter Results * (ABNORMAL) POSTDIALYSIS BUN WITH URR CALCULATION (09/27/2023 10:58 EST) BUN, Postdialysis 27(H) 10 - 26 mg/dL 09/27/2023 22:03 [facility] Urea Reduction Rate 69.0 Not Established % 09/27/2023 22:03 EST [facility] Comment: NOTE: Reference range not established for Urea Reduction Rate. BUN 87(H) 10 - 26 mg/dL 09/27/2023 22:03 [facility] Blood VENOUS BLOOD / Unknown Venipuncture / Unknown 09/27/2023 10:58 EST 09/27/2023 10:58 EST Carlota Jin MD CHEMISTRY & BLOOD GAS ORD ERABLES Final Result Performing Organization Address [facility]/ZIP Co de Phone Number [facility] [address] [place] [address] * (ABNORMAL) FERRITIN (09/27/2023 6:39 EST) Ferritin 704(H) 22 - 322 ng/mL 09/28/2023 9:28 EST [facility] Blood VENOUS BLOOD / Unknown Venipuncture / Unknown 09/27/2023 6:39 EST 09/27/2023 6:39 EST Carlota Jin MD CHEMISTRY & BLOOD GAS ORD ERABLES Final Result Performing Organization Address [place]/[facility] Co de Phone Number [facility] [address] [place] [address] * (ABNORMAL) TRANSFERRIN SATURATION (09/27/2023 6:39 EST) Iron 70 49 - 181 ??g/dL 09/27/2023 22:04 EST [facility] Iron Binding Capacity 207(L) 240 - 450 ??g/dL 09/27/2023 22:04 EST [facility] Transferrin Saturation 34 15 - 45 % 09/27/2023 22:04 EST [facility] Blood VENOUS BLOOD / Unknown Venipuncture / Unknown 09/27/2023 6:39 EST 09/27/2023 6:39 EST Carlota Jin MD CHEMISTRY & BLOOD GAS ORD ERABLES Final Result Performing Organization Address [place]/[facility] Co de Phone Number [facility] [address] [place] [address] * (ABNORMAL) DIALYSIS ROUTINE - DIALYSIS ONLY (BUN, K, NA, CL, CO2, SANJEEV, ALB, MG, PHOS, ALKP, AST) (09/27/2023 6:39 EST) Sodium 133(L) 136 - 145 mmol/L 09/27/2023 21:55 EST [facility] Potassium 5.4(H) 3.5 - 5.0 mmol/L 09/27/2023 21:55 [facility] Chloride 97 96 - 110 mmol/L 09/27/2023 21:55 [facility] CO2 Total 21(L) 22 - 32 mmol/L 09/27/2023 21:55 [facility] Calcium 8.3(L) 8.5 - 10.5 mg/dL 09/27/2023 21:55 [facility] Albumin 3.1(L) 3.4 - 4.9 g/dL 09/27/2023 21:55 [facility] Phosphorus 8.4(H) 2.5 - 4.5 mg/dL 09/27/2023 21:55 [facility] Calcium Phos Product 69.7 See Note mg/dL 09/27/2023 21:55 [facility] Comment: NOTE: Reference range not established BUN, Predialysis 87(H) 10 - 26 mg/dL 09/27/2023 21:55 [facility] AST 26 15 - 46 U/L 09/27/2023 21:55 [facility] Alkaline Phosphatase 104 38 - 126 U/L 09/27/2023 21:55 [facility] Magnesium 2.1 1.7 - 2.8 mg/dL 09/27/2023 21:55 [facility] Anion Gap 15(H) 5 - 14 mmol/L 09/27/2023 21:55 [facility] Calculated Calcium 9.0 8.9 - 10.5 mg/dL 09/27/2023 21:55 [facility] Blood VENOUS BLOOD / Unknown Venipuncture / Unknown 09/27/2023 6:39 EST 09/27/2023 6:39 EST us Carlota Jin MD CHEMISTRY & BLOOD GAS ORD ERABLES Final Result [facility] [address] [place] [address] documented in this encounter Visit Diagnoses Diagnosis ESRD (end stage renal disease) ([facility])- Primary End stage renal disease [...] oral, EVERY 4 HOURS PRN, Starting on Wed09/27/23 at 0634, Until Wed09/27/23 at 1537, Pain, Routine, DialysisIndications:ESRD (end stage renal disease) (HCC-CMS) Given 09/27/2023 7:00 EST 650 mg calcium carbonate (TUMS) tablet 500 mg (200 mg elemental calcium) 2 Tablet 2 Tablet, oral, ONCE IN DIALYSIS, 1 dose, On Wed09/27/23 at 0700, Routine, DialysisIndications:ESRD (end stage renal disease) ([facility]),Secondary hyperparathyroidism (HCC-CMS) Given 09/27/2023 6:59 EST 2 Tablets epoetin ken (EPOGEN) 20,000 unit/2 mL injection 1,500 Units 1,500 Units, intravenous, ONCE IN DIALYSIS, 1 dose, On Wed09/27/23 at 0700, Routine, DialysisIndications:ESRD (end stage renal disease) ([facility]),Anemia of chronic renal failure, unspecified CKD stage Given 09/27/2023 7:00 EST 1,500 Units heparin injection 9,000 Units 9,000 Units, intravenous, ONCE IN DIALYSIS, 1 dose, On Wed09/27/23 at 0700, Routine, Dialysis, Now x1 bolus 4500 units to be given at the beginning of dialysis 1500 units/hour to be given over the course of dialysis (9000 units total). Stop 1 hour prior to end of treatment. To be administered per Policy [id number].Indications:ESRD (end stage renal disease) ([facility]) Given 09/27/2023 6:59 EST 9,000 Units LiquaCel liquid protein liquid 30 mL 30 mL, oral, ONCE IN DIALYSIS, 1 dose, On Wed09/27/23 at 0700, RoutineIndications:Hypoalbuminemi a,ESRD (end stage renal disease) ([facility]) Given 09/27/2023 7:00 EST 30 mL documented in this encounter Orders Dialysis Count Last Ordered Date First Orde red Date HEMODIALYSIS 1 09/27/2023 documented in this encounter Care Teams Inspector Advanced Composite Relationship Specialty Start Date End Date Ken Greer MD [address] [place] [address] PCP - General 07/07/23 documented as of this encounter
--- OUTSIDE RECORDS SUMMARY | 2024-12-05 12:17 | XMS_ITS | Encounter Summary ---
Author Organization [facility] Address [address] [place] [address] Care Team Providers Care Expenditure Requisition Clerk Name Role Phone Ken Greer MD Primary Care Provider [phone] Encounter Details Date Type Department Care Team (Latest Contact Info) Description 10/01/2023 6:45 EST Treatment [facility] [address] [place], [place] [id number] Carlota Jin MD 1 [facility], Level 2 [place] [address] ESRD (end stage renal disease) ([facility]) (Primary Dx); Anemia of chronic renal failure, unspecified CKD stage; Hypoalbuminemia; Secondary hyperparathyroidism ([facility]) Social History Tobacco Use Types Packs/Day [...] - Temperature - - Respiratory Rate 16 10/01/2023 0625 EST Oxygen Saturation - - Inhaled Oxygen Concentration - - Weight 89.3 kg (196 lb 13.9 oz) 10/01/2023 0625 EST Height - - Body Mass Index 29.07 07/08/2023 0839 EDT documented in this encounter Miscellaneous Notes * Flowsheet Note - Marcela Cox RN - 10/01/2023 1206 EST 10/01/23 1039 Post-Hemodialysis Assessment Total Blood Processed (L) 89.71 Liters On Line Clearance: spKt/V 1.41 spKt/V Dialyzer Clearance Lightly streaked Treatment UFR (ml:kg:hr) 8.58 ml:kg:hr Fluid Removed (L) 3.3 L Post-Dialysis Scale Weight 87.7 kg (193 lb 5.5 oz) Wheelchair Weight 0 kg (0 lb) Prosthesis Weight 1.4 kg (3 lb 1.4 oz) Post-Treatment Weight (kg) 86.3 Treatment Weight Change (kg) 3 kg Day Target Weight (kg) 86.5 Post Sitting/Lying BP 136/75 Post Sitting/Lying pulse 65 Post Standing BP 132/73 Post Standing Pulse 72 Temp 36.2 ??C (97.2 ??F) Temp src Temporal Post access assessment Bruit present: Yes Thrill Present AVF/AFG Hemostasis achieved Yes Note access clamped x2 for 10min, no bleeding, clean dry bandages [...] Info) Description 12/06/2024 6:45 EST Treatment [facility] [place] [address] [place] [address] Carlota Jin MD 1 [facility], Level [address] [place] [address] 12/08/2024 6:45 EST Treatment [facility] [place] [address] [place], [place] [phone] Carlota Jin MD 1 [facility], [facility] 2 [place] [phone] 12/11/2024 6:45 EST Treatment [facility] [place] [address] [place], [place] [phone] Carlota Jin MD 1 [facility], [facility] 2 [place] [phone] 12/13/2024 6:45 EST Treatment [facility] [place] [address] [place], [place] [phone] Carlota Jin MD 1 [facility], [facility] 2 [place] [phone] 12/15/2024 6:45 EST Treatment [facility] [place] [address] [place], [place] [phone] Carlota Jin MD 1 [facility], [facility] 2 [place] [phone] 12/18/2024 6:45 EST Treatment [facility] [place] [address] [place], [place] [phone] Carlota Jin MD 1 [facility], [facility] 2 [place] [phone] 12/20/2024 6:45 EST Treatment [facility] [place] [address] [place], [place] [phone] Carlota Jin MD 1 [facility], [facility] 2 [place] [phone] 12/22/2024 6:45 EST Treatment [facility] [place] [address] [place], [place] [address] Carlota Jin MD 1 [facility], [facility] 2 [place] [phone] 12/25/2024 6:45 EST Treatment [facility] [place] [address] [place], [place] [phone] Carlota Jin MD 1 [facility], [facility] 2 [place] [phone] 12/27/2024 6:45 EST Treatment [facility] [place] [address] [place], [place] [phone] Carlota Jin MD 1 [facility], [facility] 2 [place] [phone] 12/29/2024 6:45 EST Treatment [facility] [address] [place], [place] [phone] Carlota Jin MD 1 [facility], [facility] 2 [place] [phone] 01/01/2025 6:45 EDT Treatment [facility] [address] [place], [place] [phone] Carlota Jin MD 1 [facility], [facility] 2 [place] [phone] 01/03/2025 6:45 EDT Treatment [facility] [place] [address] [place], [place] [phone] Carlota Jin MD 1 [facility], [facility] 2 [place] [phone] 01/05/2025 6:45 EDT Treatment [facility] [place] [address] [place], [place] [phone] Carlota Jin MD [address] [place] [address], [address] [phone] 01/08/2025 6:45 EDT Treatment [facility] [place] [address] [place], [place] [phone] Carlota Jin MD [address] [place] [address], [address] [phone] 01/10/2025 6:45 EDT Treatment [facility] [place] [address] [place], [place] [phone] Carlota Jin MD [address] [place] [address], [facility] 2 [place] [phone] 01/12/2025 6:45 EDT Treatment [facility] [place] [address] [place], [place] [phone] Carlota Jin MD 1 [facility], [facility] 2 [place] [phone] 01/15/2025 6:45 EDT Treatment [facility] [place] [address] [place], [place] [phone] Carlota Jin MD 1 [facility], [facility] 2 [place] [phone] 01/17/2025 6:45 EDT Treatment [facility] [place] [address] [place], [place] [phone] Carlota Jin MD 1 [facility], [facility] 2 [place] [phone] 01/19/2025 6:45 EDT Treatment [facility] [place] [address] [place] [address] Carlota Jin MD 1 [facility], [facility] 2 [place] [phone] 01/22/2025 6:45 EDT Treatment [facility] [place] [address] [place] [address] Carlota Jin MD 1 [facility], [facility] 2 [place] [phone] 01/24/2025 6:45 EDT Treatment [facility] [place] [address] [place] [address] Carlota Jin MD 1 [facility], [facility] 2 [place] [phone] 01/26/2025 6:45 EDT Treatment [facility] [place] [address] [place], [place] [phone] Carlota Jin MD 1 [facility], [facility] 2 [place] [phone] 01/29/2025 6:45 EDT Treatment [facility] [place] [address] [place], [place] [phone] Carlota Jin MD 1 [facility], [facility] 2 [place] [phone] 01/31/2025 6:45 EDT Treatment [facility] [place] [address] [place], [place] [phone] Carlota Jin MD 1 [facility], [facility] 2 [place] [phone] 02/02/2025 6:45 EDT Treatment [facility] [place] [address] [place] [address] Carlota Jin MD 1 [facility], [address] [phone] 02/05/2025 6:45 EDT Treatment [facility] [place] [address] [place], [place] [phone] Carlota Jin MD 1 [facility], [facility] 2 [place] [phone] 02/07/2025 6:45 EDT Treatment [facility] [place] [address] [place], [place] [phone] Carlota Jin MD 1 [facility], [facility] 2 [place] [phone] 02/09/2025 6:45 EDT Treatment [facility] [place] [address] [place], [place] [phone] Carlota Jin MD 1 [facility], [facility] 2 [place] [phone] 02/12/2025 6:45 EDT Treatment [facility] [place] [address] [place] [address] Carlota Jin MD 1 [facility], [facility] 2 [place] [phone] 02/14/2025 6:45 EDT Treatment [facility] [place] [address] [place] [address] Carlota Jin MD 1 [facility], [facility] 2 [place] [phone] 02/16/2025 6:45 EDT Treatment [facility] [place] [address] [place] [address] Carlota Jin MD 1 [facility], [facility] 2 [place] [phone] 02/19/2025 6:45 EDT Treatment [facility] [place] [address] [place] [address] Carlota Jin MD 1 [facility], [facility] 2 [place] [phone] 02/21/2025 6:45 EDT Treatment [facility] [place] [address] [place], [place] [phone] Carlota Jin MD 1 [facility], [facility] 2 [place] [phone] documented as of this encounter Procedures Procedure Name Priority Date/Time Associated Diagnosis Comments HEMODIALYSIS Routine 10/01/2023 6:25 EST ESRD (end stage renal disease) ([facility]) documented in this encounter Visit Diagnoses Diagnosis ESRD (end stage renal disease) ([facility])- Primary End stage renal disease Anemia of chronic renal failure, unspecified CKD stage Hypoalbuminemia Other disorders of plasma protein metabolism Secondary hyperparathyroidism ([facility]) Secondary hyperparathyroidism (of renal origin) documented in this encounter Administered Medications Inactive Administered Medications - up to 3 most recent administrations Medication Order MAR Action Action Date Dose Rate Site acetaminophen (TYLENOL) tablet 650 mg 650 mg, oral, EVERY 4 HOURS PRN, Starting on Wed10/01/23 at 0627, Until Wed10/01/23 at 1407, Pain, Routine, DialysisIndications:ESRD (end stage renal disease) ([facility]) Given 10/01/2023 6:49 EST 650 mg calcium carbonate (TUMS) tablet 500 mg (200 mg elemental calcium) 2 Tablet 2 Tablet, oral, ONCE IN DIALYSIS, 1 dose, On Wed10/01/23 at 0645, Routine, DialysisIndications:ESRD (end stage renal disease) ([facility]),Secondary hyperparathyroidism ([facility]) Given 10/01/2023 6:49 EST 2 Tablets epoetin ken (EPOGEN) 20,000 unit/2 mL injection 1,500 Units 1,500 Units, intravenous, ONCE IN DIALYSIS, 1 dose, On Wed10/01/23 at 0645, Routine, DialysisIndications:ESRD (end stage renal disease) ([facility]),Anemia of chronic renal failure, unspecified CKD stage Given 10/01/2023 6:50 EST 1,500 Units heparin injection 9,000 Units 9,000 Units, intravenous, ONCE IN DIALYSIS, 1 dose, On Wed10/01/23 at 0645, Routine, Dialysis, Now x1 bolus 4500 units to be given at the beginning of dialysis 1500 units/hour to be given over the course of dialysis (9000 units total). Stop 1 hour prior to end of treatment. To be administered per Policy [id number].Indications:ESRD (end stage renal disease) ([facility]) Given 10/01/2023 6:50 EST 9,000 Units LiquaCel liquid protein liquid 30 mL 30 mL, oral, ONCE IN DIALYSIS, 1 dose, On Wed10/01/23 at 0645, RoutineIndications:Hypoalbuminemi a,ESRD (end stage renal disease) ([facility]) Given 10/01/2023 6:50 EST 30 mL documented in this encounter Orders Dialysis Count Last Ordered Date First Orde red Date HEMODIALYSIS 1 10/01/2023 documented in this encounter Care Teams Expenditure Requisition Clerk Relationship Specialty Start Date End Date Ken Greer MD [address] [place] [address] PCP - General 07/07/23 documented as of this encounter
--- OUTSIDE RECORDS SUMMARY | 2024-12-05 12:17 | XMS_ITS | Encounter Summary ---
Author Organization [facility] Address [address] [place] [address] Care Team Providers Care Legal Billing Analyst Name Role Phone Ken Greer MD Primary Care Provider [phone] Encounter Details Date Type Department Care Team (Late st Contact Info) Description 10/07/2023 Documentation Visit [address] [place] [address] Skye Gomez NP 1 [facility], Level [address] [place] [address] Social History Tobacco Use Types [...] as of this encounter Progress Notes * Skye Gomez NP - 10/07/2023 1054 EST Therapy reassigned to Skye Gomez NP while Dr. Jin away on leave documented in this encounter Plan of Treatment Upcoming Encounters Date Type Department Care Team (Late st Contact Info) Description 12/06/2024 6:45 EST Treatment [facility] [place] [address] [place], [place] [phone] Carlota Jin MD 1 [facility], [facility] 2 [place] [phone] 12/08/2024 6:45 EST Treatment [facility] [place] [address] [place], [place] [phone] Carlota Jin MD 1 [facility], [facility] 2 [place] [phone] 12/11/2024 6:45 EST Treatment [facility] [place] [address] [place], [place] [phone] Carlota Jin MD [address] [place] [address], [address] [phone] 12/13/2024 6:45 EST Treatment [facility] [place] [address] [place], [place] [phone] Carlota Jin MD [address] [place] [address], [facility] [address] [place] [phone] 12/15/2024 6:45 EST Treatment [facility] [place] [address] [place], [place] [phone] Carlota Jin MD 1 [facility], [facility] 2 [place] [phone] 12/18/2024 6:45 EST Treatment [facility] [place] [address] [place], [place] [phone] Carlota Jin MD 1 [facility], [facility] [address] [place] [phone] 12/20/2024 6:45 EST Treatment [facility] [place] [address] [place], [place] [phone] Carlota Jin MD 1 [facility], [facility] 2 [place] [phone] 12/22/2024 6:45 EST Treatment [facility] [place] [address] [place], [place] [phone] Carlota Jin MD 1 [facility], [facility] 2 [place] [phone] 12/25/2024 6:45 EST Treatment [facility] [place] [address] [place], [place] [phone] Carlota Jin MD 1 [facility], [facility] [address] [place] [phone] 12/27/2024 6:45 EST Treatment [facility] [address] [place], [place] [phone] Carlota Jin MD 1 [facility], [facility] [address] [place] [phone] 12/29/2024 6:45 EST Treatment [facility] [place] [address] [place], [place] [phone] Carlota Jin MD 1 [facility], [facility] 2 [place] [phone] 01/01/2025 6:45 EDT Treatment [facility] [place] [address] [place], [place] [phone] Carlota Jin MD 1 [facility], [facility] 2 [place] [phone] 01/03/2025 6:45 EDT Treatment [facility] [place] [address] [place], [place] [phone] Carlota Jin MD 1 [facility], [facility] 2 [place] [phone] 01/05/2025 6:45 EDT Treatment [facility] [place] [address] [place], [place] [phone] Carlota Jin MD 1 [facility], [facility] 2 [place] [phone] 01/08/2025 6:45 EDT Treatment [facility] [place] [address] [place], [place] [phone] Carlota Jin MD 1 [facility], [facility] 2 [place] [phone] 01/10/2025 6:45 EDT Treatment [facility] [place] [address] [place], [place] [phone] Carlota Jin MD 1 [facility], [facility] 2 [place] [phone] 01/12/2025 6:45 EDT Treatment [facility] [place] [address] [place], [place] [phone] Carlota Jin MD 1 [facility], [facility] 2 [place] [phone] 01/15/2025 6:45 EDT Treatment [facility] [place] [address] [place] [address] Carlota Jin MD 1 [facility], [facility] [address] [place] [phone] 01/17/2025 6:45 EDT Treatment [facility] [place] [address] [place], [place] [phone] Carlota Jin MD 1 [facility], [address] [phone] 01/19/2025 6:45 EDT Treatment [facility] [place] [address] [place], [place] [phone] Carlota Jin MD 1 [facility], [address] [phone] 01/22/2025 6:45 EDT Treatment [facility] [place] [address] [place], [place] [phone] Carlota Jin MD 1 [facility], [facility] [address] [place] [phone] 01/24/2025 6:45 EDT Treatment [facility] [place] [address] [place], [place] [phone] Carlota Jin MD 1 [facility], [facility] 2 [place] [phone] 01/26/2025 6:45 EDT Treatment [facility] [place] [address] [place], [place] [phone] Carlota Jin MD 1 [facility], [facility] [address] [place] [phone] 01/29/2025 6:45 EDT Treatment [facility] [place] [address] [place], [place] [phone] Carlota Jin MD 1 [facility], [facility] [address] [place] [phone] 01/31/2025 6:45 EDT Treatment [facility] [place] [address] [place], [place] [phone] Carlota Jin MD [address] [place] [address], [address] [phone] 02/02/2025 6:45 EDT Treatment [facility] [place] [address] [place], [place] [phone] Carlota Jin MD [address] [place] [address], [facility] [address] [place] [phone] 02/05/2025 6:45 EDT Treatment [facility] [place] [address] [place], [place] [phone] Carlota Jin MD 1 [facility], [facility] 2 [place] [phone] 02/07/2025 6:45 EDT Treatment [facility] [place] [address] [place], [place] [address] Carlota Jin MD 1 [facility], [facility] 2 [place] [phone] 02/09/2025 6:45 EDT Treatment [facility] [place] [address] [place], [place] [phone] Carlota Jin MD 1 [facility], [facility] 2 [place] [phone] 02/12/2025 6:45 EDT Treatment [facility] [place] [address] [place], [place] [phone] Carlota Jin MD 1 [facility], [facility] 2 [place] [phone] 02/14/2025 6:45 EDT Treatment [facility] [place] [address] [place], [place] [phone] Carlota Jin MD 1 [facility], [facility] 2 [place] [phone] 02/16/2025 6:45 EDT Treatment [facility] [place] [address] [place], [place] [phone] Carlota Jin MD 1 [facility], [facility] 2 [place] [phone] 02/19/2025 6:45 EDT Treatment [facility] [place] [address] [place], [place] [phone] Carlota Jin MD 1 [facility], [facility] 2 [place] [phone] 02/21/2025 6:45 EDT Treatment [facility] [address] [place] [address] Carlota Jin MD 1 [facility] [address] [place] [address] documented as of this encounter Visit Diagnoses Not on filedocumented in this encounter Care Teams Legal Billing Analyst Relationship Specialty Start Date End Date Ken Greer MD [facility] [place] [address] PCP - General 07/07/23 documented as of this encounter
--- OUTSIDE RECORDS SUMMARY | 2024-12-05 12:17 | XMS_ITS | Encounter Summary ---
Author Organization [facility] Address [address] [place] [address] Care Team Providers Care Aviation Safety Inspector Name Role Phone Ken Greer MD Primary Care Provider [phone] Encounter Details Date Type Department Care Team (Latest Contact Info) Description 10/06/2023 6:45 EST Treatment [facility] [address] [place], [place] [phone] Carlota Jin MD 1 [facility], Level [address] [place] [address] ESRD (end stage renal disease) ([facility]) (Primary Dx); Anemia of chronic renal failure, unspecified CKD stage; Hypoalbuminemia; Secondary hyperparathyroidism ([facility]) Social History Tobacco Use Types [...] - Temperature - - Respiratory Rate 16 10/06/2023 0634 EST Oxygen Saturation - - Inhaled Oxygen Concentration - - Weight 89.4 kg (197 lb 1.5 oz) 10/06/[address] Height - - Body Mass Index 29.11 07/08/2023 0839 EDT documented in this encounter Miscellaneous Notes * Flowsheet Note - Marcela Cox RN - 10/06/2023 1354 EST 10/06/23 1049 Post-Hemodialysis Assessment Total Blood Processed (L) 87.65 Liters On Line Clearance: spKt/V 1.38 spKt/V Dialyzer Clearance Lightly streaked Treatment UFR (ml:kg:hr) 8.61 ml:kg:hr Final Critline Profile (%/hr) -1.71 Final Profile Profile A Critline refill Negative (H1: 33.9 H2:33.7) Fluid Removed (L) 3.4 L Post-Dialysis Scale Weight 87.8 kg (193 lb 9 oz) Wheelchair Weight 0 kg (0 lb) Prosthesis Weight 1.4 kg (3 lb 1.4 oz) Post-Treatment Weight (kg) 86.4 Treatment Weight Change (kg) 3 kg Day Target Weight (kg) 86.5 Post Sitting/Lying BP 172/90 Post Sitting/Lying pulse 74 Post Standing BP 175/69 Post Standing Pulse 82 Temp 36.6 ??C (97.9 ??F) Temp src Temporal Post access assessment Bruit present: Yes Thrill Present AVF/AFG Hemostasis achieved Yes Note Pastient held for 10mins with blue clamps Orientation Alert and Oriented x3 Yes Time Yes Place Yes Person Yes Cooperative Yes Disoriented No Discharge Ambulation Methods Ambulatory with assistive device Ambulation device Cane Wrap up items Patient Response to Treatment Tolerated tx well. Removed 3.4L UF goal without difficulty. Comments No issues during tx, no concerns voiced post tx. * Dialysis Comprehensive - Skye Gomez NP - 10/06/2023 0606 EST Images from the original note were not included. 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 No No Transplant Center [facility] Comments Patient does not meet transplant criteria due to daily smoking cigarettes pt referred to transplant @ [facility] Current Dialysis Prescription: Hemodialysis Therapy [...] with Nursing: Yes Average Interdialytic Fluid Gains: 10/01/2023 10:39 10/05/2023 6:32 10/05/2023 6:33 10/05/2023 10:51 10/06/2023 6:31 10/06/2023 6:34 10/06/2023 10:49 InterDialytic +/- Gain/Loss 7.1 7.1 0.2 0.2 Wt (pre) 93.4 93.4 89.4 89.4 Wt (post) 86.3 89.2 86.4 Treatment UFR (ml:kg:hr) 8.58 ml:kg:hr 11.72 ml:kg:hr 8.61 ml:kg:hr BP (pre) 179/87 179/87 142/82 142/82 BP (post) 176/98 176/98 179/104 179/104 Pulse (pre) 74 74 87 87 Pulse(post) 73 73 81 81 Resp (/min) 16 16 Volume and blood pressure have been addressed with the following changes: None Consistently able to achieve estimated dry weight? Yes Blood pressure is in range for patient? Yes Any adverse intradialytic symptoms? No Plan: Managed per protocol Physical Exam Constitutional NAD Respiratory: Unlabored Cardiac: Deferred Abdomen: Non distended Extremities: Trace edema Hospitalization Hospitalization in Previous 3 Months: No Emergency Room Visit in Previous 3 Months: No Access Management Current LDAs: Hemodialysis Arteriovenous Access 02/13/19 (Active) AV Fistula Bruit 10/06/23 0652 Site Assessment Clean;Dry;Intact;Bruit heard;Thrill felt 10/06/23 0652 Current State Active 10/06/23 0652 Status Accessed 10/06/23 0652 Is Maturing N 10/06/23651 Local Anesthetic None 10/06/23651 Site Prep Chlorhexidine 10/06/23651 Venous Needle Size 15 G 10/06/2352 Arterial/Generic Needle Size 15 G 10/06/23 0652 Accessed by: Rosa 10/06/2352 Access Attempts 2 10/05/23 0656 Dressing Status/Care Clean/Dry/Intact 09/27/23 0640 Patient has AVF/AVG as primary access: Yes [...] Hemodialysis 3 times a week Week of 10/03/2023 Routine, ONE TIME Starting when released Prescribed [...] - UF Profile: None Dialysis Last released: Wed10/06/2023 Oxygen Therapy (Age 3 yrs. to Adult) [...] released Until Discontinued, Pain, Dialysis Last released: Wed10/01/2023 diphenhydrAMINE (BENADRYL) capsule 25 mg PRN PRN [...] of treatment. To be administered per Policy [id number]. Last released: Wed10/06/2023 sodium chloride 0.9 % BOLUS 100 mL PRN PRN 100 mL, intravenous, PRN Starting when released Until Discontinued, Other, hypotension or cramping,Dialysis Last released: Never Dialysis Weekly Labs Complete Blood Count Weekly: Wed10/13/2023 Routine, ONE TIME Starting when released, Blood, Venous, Blood Results Release to Patient (Note: Choosing Manual Release will only block results from tests performed at [facility] and does not apply for Miscellaneous Test Order): Immediate via [facility] Dialysis Last released: Wed10/06/2023 Dialysis Monthly Labs Dialysis Iron (Includes Iron, IBC, and Ferritin) - Nephrology Use Only On the Wed of every 1 month Wed10/25/2023 Routine, ONE TIME Starting when released, Blood, Venous, Blood Results Release to Patient (Note: Choosing Manual Release will only block results from tests performed at [facility] and does not apply for Miscellaneous Test Order): Immediate via [facility] Portal Dialysis Last released: Wed09/27/2023 Dialysis Routine- Dialysis Use Only On the Wed of every 1 month Wed10/25/2023 Routine, ONE TIME Starting when released, Blood, Blood, Venous Results Release to Patient (Note: Choosing Manual Release will only block results from tests performed at [facility] and does not apply for Miscellaneous Test Order): Immediate via MyChart Portal Dialysis Last released: Wed09/27/2023 Postdialysis BUN with URR Calculation On the Wed of every 1 month Wed10/25/2023 Routine, ONE TIME Starting when released, Blood, Blood, Venous Results Release to Patient (Note: Choosing Manual Release will only block results from tests performed at [facility] and does not apply for Miscellaneous Test Order): Immediate via MyChart Portal Dialysis Last released: Wed09/27/2023 Dialysis Quarterly Labs PTH Intact On the Mon of every 3 months Wed10/25/2023 Routine, ONE TIME Starting when released, Blood, Venous, Blood Results Release to Patient (Note: Choosing Manual Release will only block results from tests performed at [facility] and does not apply for Miscellaneous Test Order): Immediate via MyChart Portal Dialysis Last released: Wed07/26/2023 Dialysis Annual Labs - October Dialysis Hepatitis- Dialysis Use Only On the Wed of every 12 months Wed10/25/2023 Routine, ONE TIME Starting when released, Blood, Blood, Venous Results Release to Patient (Note: Choosing Manual Release will only block results from tests performed at [facility] and does not apply for Miscellaneous Test Order): Immediate via MyChart Portal Dialysis Last released: Never Folate On the Mon of every 12 months Wed10/25/2023 Routine, ONE TIME Starting when released, Blood, Venous, Blood Results Release to Patient (Note: Choosing Manual Release will only block results from tests performed at [facility] and does not apply for Miscellaneous Test Order): Immediate via MyChart Portal Dialysis Last released: Never Vitamin B12 On the Mon of every 12 months Wed10/25/2023 Routine, ONE TIME Starting when released, Blood, Venous, Blood Results Release to Patient (Note: Choosing Manual Release will only block results from tests performed at [facility] and does not apply for Miscellaneous Test Order): Immediate via MyChart Portal Dialysis Last released: Never Vitamin D (25,OH) On the Mon of every 12 months Wed10/25/2023 Routine, ONE TIME Starting when released, Blood, Venous, Blood Results Release to Patient (Note: Choosing Manual Release will only block results from tests performed at [facility] and does not apply for Miscellaneous Test Order): Immediate via MyChart Portal Dialysis Last released: Never Dialysis Annual Labs - April Hepatitis C [...] (EPOGEN) 20,000 unit/2 mL injection 1,500 Units 3 times a week Week of 10/03/2023 1,500 Units, intravenous, ONCE IN DIALYSIS Starting when released, Dialysis Last released: Wed10/06/2023 HEMODIALYSIS NUTRITIONAL SUPPLEMENTS Nutritional Supplements LiquaCel liquid protein liquid 30 mL Every visit Every visit 30 mL, oral, ONCE IN DIALYSIS Starting when released Last released: Wed10/06/2023 HEMODIALYSIS CKD MBD MEDS Medications calcium carbonate (TUMS) tablet 500 mg (200 mg elemental calcium) 2 Tablet Every visit Every visit 2 Tablet, oral, ONCE IN DIALYSIS Starting when released, Dialysis Last released: Wed10/06/2023 Adjustment made to dialysis medication: No Laboratory Results Dialysis Adequacy: spKt/V: 1.41 (Calculated from:; BUN Pre-Dialysis: 87 mg/dL at 09/27/2023 10:58; BUN Post-Dialysis: 27 mg/dL at 09/27/2023 10:58; Pre-Treatment Weight (kg): 91.6 at 09/27/2023 6:34; Post-Treatment Weight(kg): 87.8 at 09/27/2023 10:48; Duration of Treatment (minutes): 242 minutes at 09/27/2023 10:48) Plan: Continue current dialysis prescription Anemia Management: Lab Results Component Value Date WBC 7.58 09/29/2023 HGB 10.6 (L) 09/29/2023 HGB 10.0 (L) 09/22/2023 HGB 10.4 (L) 09/15/2023 PLT 278 09/29/2023 FOLATE 17.3 11/16/2022 [id number] 11/16/2022 FERRITIN 704 (H) 09/27/2023 Current GEORGE/Dose: HEMODIALYSIS ANEMIA MEDS epoetin ken [...] Component Value Date LABALBU 3.1 (L) 09/27/2023 ALKPHOS 104 09/27/2023 PHOS 8.4 (H) 09/27/2023 CALCIUM 8.3 (L) 09/27/2023 CALCCA 9.0 09/27/2023 PTH 484 (H) 07/26/2023 Vitamin D: This patient does not have an active medication from one of the medication groupers. This patient does not have an active medication from one of the medication groupers. This patient does not have an active medication from one of the medication groupers. Plan: Managed per protocol Potassium Management: Lab Results Component Value Date K 5.4 (H) 09/27/2023 Prescribed Potassium Concentrate: HEMODIALYSIS Ordered at: 10/06/23 0635 Dialysate concentrate: Potassium 2 mEq/L Calcium 2.5 mEq/L 10/06/2023 6:34 Last Dialysis Prescription released on: Selected bath: Potassium 2 mEq/L Calcium 2.5 mEq/L This patient does not have an active medication from one of the medication groupers. Plan: Managed per protocol Nutrition: Lab Results Component Value Date LABALBU 3.1 (L) 09/27/2023 NA 133 (L) 09/27/2023 Protein Supplements: This patient does not have an active medication from one of the medication groupers. Plan: Managed per protocol Comments: Stable on dialysis; recently referred to transplant documented in this encounter Plan of Treatment Upcoming Encounters Date Type Department Care Team (Late st Contact Info) Description 12/06/2024 6:45 EST Treatment [facility] Dial[facility] [address] [place], [place] [id number] Carlota Jin MD [address] [place] [phone] 12/08/2024 6:45 EST Treatment [facility] [address] [place], [place] [phone] Carlota Jin MD [address] [place] [address], [facility] [address] [place] [phone] 12/11/2024 6:45 EST Treatment [facility] - [place] [address] [place], [place] [phone] Carlota Jin MD 1 [facility], [facility] 2 [place] [phone] 12/13/2024 6:45 EST Treatment [facility] [place] [address] [place] [address] Carlota Jin MD 1 [facility], [facility] 2 [place] [phone] 12/15/2024 6:45 EST Treatment [facility] [address] [place], [place] [address] [phone] Carlota Jin MD 1 [facility], [facility] [address] [place] [phone] 12/18/2024 6:45 EST Treatment [facility] [address] [place] [address] Carlota Jin MD 1 [facility], [facility] 2 [place] [phone] 12/20/2024 6:45 EST Treatment [facility] [address] [place], [place] [phone] Carlota Jin MD 1 [facility], [facility] 2 [place] [phone] 12/22/2024 6:45 EST Treatment [facility] [place] [address] [place], [place] [address] Carlota Jin MD 1 [facility], [address] [phone] 12/25/2024 6:45 EST Treatment [facility] [place] [address] [place], [place] [phone] Carlota Jin MD 1 [facility], [address] [phone] 12/27/2024 6:45 EST Treatment [facility] [place] [address] [place], [place] [phone] Carlota Jin MD 1 [facility], [address] [phone] 12/29/2024 6:45 EST Treatment [facility] [place] [address] [place], [place] [phone] Carlota Jin MD 1 [facility], [address] [phone] 01/01/2025 6:45 EDT Treatment [facility] [place] [address] [place], [place] [phone] Carlota Jin MD [address] [phone] 01/03/2025 6:45 EDT Treatment [facility] [place] [address] [place], [place] [phone] Carlota Jin MD 1 [facility], [facility] 2 [place] [phone] 01/05/2025 6:45 EDT Treatment [facility] [place] [address] [place], [place] [phone] Carlota Jin MD 1 [facility], [facility] 2 [place] [phone] 01/08/2025 6:45 EDT Treatment [facility] - [place] [address] [place], [place] [phone] Carlota Jin MD 1 [facility], [facility] 2 [place] [phone] 01/10/2025 6:45 EDT Treatment [facility] - [place] [address] [place], [place] [phone] Carlota Jin MD 1 [facility], [address] [phone] 01/12/2025 6:45 EDT Treatment [facility] [place] [address] [place], [place] [phone] Carlota Jin MD 1 [facility], [facility] 2 [place] [phone] 01/15/2025 6:45 EDT Treatment [facility] [place] [address] [place], [place] [phone] Carlota Jin MD 1 [facility], [facility] 2 [place] [phone] 01/17/2025 6:45 EDT Treatment [facility] [place] [address] [place], [place] [phone] Carlota Jin MD 1 [facility], [facility] 2 [place] [phone] 01/19/2025 6:45 EDT Treatment [facility] [place] [address] [place], [place] [phone] Carlota Jin MD 1 [facility], [facility] 2 [place] [phone] 01/22/2025 6:45 EDT Treatment [facility] - [place] [address] [place], [place] [phone] Carlota Jin MD 1 [facility], [address] [phone] 01/24/2025 6:45 EDT Treatment [facility] [place] [address] [place], [place] [phone] Carlota Jin MD 1 [facility], [address] [phone] 01/26/2025 6:45 EDT Treatment [facility] [place] [address] [place], [place] [phone] Carlota Jin MD 1 [facility], [facility] 2 [place] [phone] 01/29/2025 6:45 EDT Treatment [facility] [place] [address] [place], [place] [phone] Carlota Jin MD 1 [facility], Level [address] [place] [phone] 01/31/2025 6:45 EDT Treatment [facility] [place] [address] [place], [place] [phone] Carlota Jin MD 1 [facility], [facility] 2 [place] [phone] 02/02/2025 6:45 EDT Treatment [facility] [place] [address] [place], [place] [phone] Carlota Jin MD 1 [facility], [facility] 2 [place] [phone] 02/05/2025 6:45 EDT Treatment [facility] - [place] [address] [place], [place] [phone] Carlota Jin MD 1 [facility], [facility] 2 [place] [phone] 02/07/2025 6:45 EDT Treatment [facility] [place] [address] [place] [address] Calrota Jin MD 1 [facility], [facility] 2 [place] [phone] 02/09/2025 6:45 EDT Treatment [facility] [place] [address] [place], [place] [phone] Carlota Jin MD 1 [facility], [facility] 2 [place] [phone] 02/12/2025 6:45 EDT Treatment [facility] [place] [address] [place], [place] [phone] Carlota Jin MD 1 [facility], [facility] 2 [place] [phone] 02/14/2025 6:45 EDT Treatment [facility] - [place] [address] [place], [place] [phone] Carlota Jin MD [address] [place] [address], [address] [phone] 02/16/2025 6:45 EDT Treatment [facility] [place] [address] [place], [place] [phone] Carlota Jin MD [address] [place] [address], [address] [phone] 02/19/2025 6:45 EDT Treatment [facility] [place] [address] [place], [place] [phone] Carlota Jin MD [address] [place] [address], [address] [phone] 02/21/2025 6:45 EDT Treatment [facility] - [place] [address] [place], [place] [phone] Carlota Jin MD 1 [facility], [facility] 2 [place] [phone] documented as of this encounter Procedures Procedure Name Priority Date/Time Associated Diagnosis Comments COMPLETE BLOOD COUNT Routine 10/06/2023 6:38 EST ESRD (end stage renal disease) ([facility]) HEMODIALYSIS Routine 10/06/2023 6:35 EST ESRD (end stage renal disease) ([facility]) documented in this encounter Results * (ABNORMAL) COMPLETE BLOOD COUNT (10/06/2023 6:38 EST) WBC 6.26 4.00 - 10.40 K/cmm 10/06/2023 21:53 [facility] RBC 3.52(L) 4.36 - 5.78 M/cmm 10/06/2023 21:53 [facility] Hemoglobin 11.0(L) 13.8 - 17.3 g/dL 10/06/2023 21:53 [facility] HCT 33.4(L) 39.5 - 50.2 % 10/06/2023 21:53 [facility] MCV 95 81 - 95 fL 10/06/2023 21:53 [facility] MCH 31.3 27.6 - 33.0 pg 10/06/2023 21:53 [facility] MCHC 32.9 32.8 - 36.4 g/dL 10/06/2023 21:53 [facility] RDW-CV 12.6 <14.2 % 10/06/2023 21:53 [facility] RDW-SD 43.5 <46.0 fl 10/06/2023 21:53 [facility] PLT 245 141 - 377 K/cmm 10/06/2023 21:53 [facility] MPV 12.3 9.5 - 12.7 fL 10/06/2023 21:53 [facility] Blood VENOUS BLOOD / Unknown Venipuncture / Unknown 10/06/2023 6:38 EST 10/06/2023 6:38 EST us Carlota Jin MD HEMATOLOGY & PF4 ORDERABL ES Final Result [facility] [address] [place] [address] documented in this encounter Visit Diagnoses Diagnosis ESRD (end stage renal disease) ([facility])- Primary End stage renal disease Anemia of chronic renal failure, unspecified CKD stage Hypoalbuminemia Other disorders of plasma protein metabolism Secondary hyperparathyroidism ([facility]) Secondary hyperparathyroidism (of renal origin) documented in this encounter Administered Medications Inactive Administered Medications - up to 3 most recent administrations Medication Order MAR Action Action Date Dose Rate Site calcium carbonate (TUMS) tablet 500 mg (200 mg elemental calcium) 2 Tablet 2 Tablet, oral, ONCE IN DIALYSIS, 1 dose, On Wed10/06/23 at 0700, Routine, DialysisIndications:ESRD (end stage renal disease) ([facility]),Secondary hyperparathyroidism ([facility]) Given 10/06/2023 7:01 EST 2 Tablets epoetin ken (EPOGEN) 20,000 unit/2 mL injection 1,500 Units 1,500 Units, intravenous, ONCE IN DIALYSIS, 1 dose, On Wed10/06/23 at 0700, Routine, DialysisIndications:ESRD (end stage renal disease) ([facility]),Anemia of chronic renal failure, unspecified CKD stage Given 10/06/2023 7:01 EST 1,500 Units heparin injection 9,000 Units 9,000 Units, intravenous, ONCE IN DIALYSIS, 1 dose, On Wed10/06/23 at 0700, Routine, Dialysis, Now x1 bolus 4500 units to be given at the beginning of dialysis 1500 units/hour to be given over the course of dialysis (9000 units total). Stop 1 hour prior to end of treatment. To be administered per Policy [id number].Indications:ESRD (end stage renal disease) ([facility]) Given 10/06/2023 7:01 EST 9,000 Units LiquaCel liquid protein liquid 30 mL 30 mL, oral, ONCE IN DIALYSIS, 1 dose, On Wed10/06/23 at 0700, RoutineIndications:ESRD (end stage renal disease) ([facility]),Hypoalbuminemia Given 10/06/2023 7:01 EST 30 mL documented in this encounter Orders Dialysis Count Last Ordered Date First Orde red Date HEMODIALYSIS 1 10/06/2023 documented in this encounter Care Teams Aviation Safety Inspector Relationship Specialty Start Date End Date Ken Greer MD [facility] [place] [address] PCP - General 07/07/23 documented as of this encounter
--- OUTSIDE RECORDS SUMMARY | 2024-12-05 12:17 | XMS_ITS | Encounter Summary ---
Author Organization [facility] Address [address] [place] [address] Care Team Providers Care Salvage Diver Name Role Phone Ken Greer MD Primary Care Provider [phone] Encounter Details Date Type Department Care Team (Latest Contact Info) Description 09/24/2023 6:45 EST Treatment [facility] [address] [place], [place] [id number] Carlota Jin MD 1 [facility], Level [address] [place] [address] ESRD (end stage renal disease) ([facility]) (Primary Dx); Anemia of chronic renal failure, unspecified CKD stage; Hypoalbuminemia; Secondary hyperparathyroidism ([facility]) Social History Tobacco Use Types [...] - Temperature - - Respiratory Rate 16 09/24/2023 0628 EST Oxygen Saturation - - Inhaled Oxygen Concentration - - Weight 89.4 kg (197 lb 1.5 oz) 09/24/[address] Height - - Body Mass Index 29.11 07/08/2023 0839 EDT documented in this encounter Miscellaneous Notes * Flowsheet Note - Marcela Cox RN - 09/24/2023 1256 EST 09/24/23 1105 Post-Hemodialysis Assessment Total Blood Processed (L) 90.23 Liters On Line Clearance: spKt/V 1.45 spKt/V Dialyzer Clearance Lightly streaked Treatment UFR (ml:kg:hr) 9.86 ml:kg:hr Final Critline Profile (%/hr) -2.44 Final Profile Profile A Critline refill Negative (31.5-31.6 15 minute refill) Fluid Removed (L) 3.5 L Post-Dialysis Scale Weight 87.3 kg (192 lb 7.4 oz) Wheelchair Weight 0 kg (0 lb) Prosthesis Weight 1.4 kg (3 lb 1.4 oz) (boots) Post-Treatment Weight (kg) 85.9 Treatment Weight Change (kg) 3.5 kg Day Target Weight (kg) 86.4 Post Sitting/Lying BP 106/85 Post Sitting/Lying pulse 62 Post Standing BP 146/75 Post Standing Pulse 69 Temp 36.1 ??C [...] Description 12/06/2024 6:45 EST Treatment [facility] [place] [address] [place] [address] Carlota Jin MD 1 [facility], Level [address] [place] [address] 12/08/2024 6:45 EST Treatment [facility] [place] [address] [place], [place] [id number] Carlota Jin MD 1 [facility], [facility] [address] [place] [phone] 12/11/2024 6:45 EST Treatment [facility] [place] [address] [place], [place] [id number] Carlota Jin MD 1 [facility], [facility] [address] [place] [phone] 12/13/2024 6:45 EST Treatment [facility] [place] [address] [place], [place] [id number] Carlota Jin MD 1 [facility], [facility] 2 [place] [phone] 12/15/2024 6:45 EST Treatment [facility] [place] [address] [place], [place] [id number] Carlota Jin MD 1 [facility], [facility] [address] [place] [phone] 12/18/2024 6:45 EST Treatment [facility] [place] [address] [place], [place] [id number] Carlota Jin MD 1 [facility], [facility] 2 [place] [phone] 12/20/2024 6:45 EST Treatment [facility] [address] [place], [place] [id number] Carlota Jin MD 1 [facility], [facility] [address] [place] [phone] 12/22/2024 6:45 EST Treatment [facility] [place] [address] [place] [address] Carlota Jin MD 1 [facility], [facility] [address] [place] [phone] 12/25/2024 6:45 EST Treatment [facility] [place] [address] [place] [address] Carlota Jin MD 1 [facility], [facility] 2 [place] [phone] 12/27/2024 6:45 EST Treatment [facility] [place] [address] [place] [address] Carlota Jin MD 1 [facility], [facility] 2 [place] [phone] 12/29/2024 6:45 EST Treatment [facility] [place] [address] [place] [address] Carlota Jin MD 1 [facility], [facility] 2 [place] [phone] 01/01/2025 6:45 EDT Treatment [facility] [place] [address] [place], [place] [id number] Carlota Jin MD 1 [facility], [facility] 2 [place] [phone] 01/03/2025 6:45 EDT Treatment [facility] [place] [address] [place], [place] [address] Carlota Jin MD 1 [facility], [facility] 2 [place] [phone] 01/05/2025 6:45 EDT Treatment [facility] [place] [address] [place], [place] [id number] Carlota Jin MD [address] [place] [address], [facility] 2 [place] [phone] 01/08/2025 6:45 EDT Treatment [facility] [place] [address] [place] [address] Carlota Jin MD [address] [place] [address], [facility] [address] [place] [phone] 01/10/2025 6:45 EDT Treatment [facility] [place] [address] [place] [address] Carlota Jin MD [address] [place] [address], [facility] [address] [place] [phone] 01/12/2025 6:45 EDT Treatment [facility] [place] [address] [place], [place] [id number] Carlota Jin MD 1 [facility], [facility] 2 [place] [phone] 01/15/2025 6:45 EDT Treatment [facility] [place] [address] [place], [place] [address] Carlota Jin MD 1 [facility], [address] [phone] 01/17/2025 6:45 EDT Treatment [facility] [place] [address] [place], [place] [id number] Carlota Jin MD 1 [facility], [address] [phone] 01/19/2025 6:45 EDT Treatment [facility] [place] [address] [place], [place] [id number] Carlota Jin MD 1 [facility], [address] [phone] 01/22/2025 6:45 EDT Treatment [facility] [place] [address] [place], [place] [address] Carlota Jin MD [address] [phone] 01/24/2025 6:45 EDT Treatment [facility] [place] [address] [place], [place] [address] Carlota Jin MD [address] [phone] 01/26/2025 6:45 EDT Treatment [facility] [place] [address] [place], [place] [id number] Carlota Jin MD 1 [facility], [address] [phone] 01/29/2025 6:45 EDT Treatment [facility] [place] [address] [place], [place] [address] Carlota Jin MD 1 [facility], [facility] 2 [place] [phone] 01/31/2025 6:45 EDT Treatment [facility] [place] [address] [place], [place] [address] Carlota Jin MD 1 [facility], [facility] 2 [place] [phone] 02/02/2025 6:45 EDT Treatment [facility] [place] [address] [place], [place] [address] Carlota Jin MD 1 [facility], [address] [phone] 02/05/2025 6:45 EDT Treatment [facility] [place] [address] [place] [address] Carlota Jin MD 1 [facility], [facility] 2 [place] [phone] 02/07/2025 6:45 EDT Treatment [facility] [place] [address] [place], [place] [id number] Carlota Jin MD 1 [facility], [facility] 2 [place] [phone] 02/09/2025 6:45 EDT Treatment [facility] [place] [address] [place], [place] [id number] Carlota Jin MD 1 [facility], [facility] 2 [place] [phone] 02/12/2025 6:45 EDT Treatment [facility] [place] [address] [place], [place] [address] Carlota Jin MD 1 [facility], [address] [phone] 02/14/2025 6:45 EDT Treatment [facility] [place] [address] [place], [place] [address] Carlota Jin MD 1 [facility], [address] [phone] 02/16/2025 6:45 EDT Treatment [facility] [place] [address] [place], [place] [address] Carlota Jin MD 1 [facility], [address] [phone] 02/19/2025 6:45 EDT Treatment [facility] [place] [address] [place], [place] [address] Carlota Jin MD 1 [facility], [address] [phone] 02/21/2025 6:45 EDT Treatment [facility] [place] [address] [place], [place] [address] Carlota Jin MD 1 [facility], [address] [place] [phone] documented as of this encounter Procedures Procedure Name Priority Date/Time Associated Diagnosis Comments HEMODIALYSIS Routine 09/24/2023 6:29 EST ESRD (end stage renal disease) ([facility]) documented in this encounter Visit Diagnoses Diagnosis ESRD (end stage renal disease) ([facility])- Primary End stage renal disease Anemia of chronic renal failure, unspecified CKD stage Hypoalbuminemia Other disorders of plasma protein metabolism Secondary hyperparathyroidism ([facility]) Secondary hyperparathyroidism (of renal origin) documented in this encounter Administered Medications Inactive Administered Medications - up to 3 most recent administrations Medication Order MAR Action Action Date Dose Rate Site acetaminophen (TYLENOL) tablet 650 mg 650 mg, oral, EVERY 4 HOURS PRN, Starting on Wed09/24/23 at 0628, Until Wed09/24/23 at 1457, Pain, Routine, DialysisIndications:ESRD (end stage renal disease) ([facility]) Given 09/24/2023 6:48 EST 650 mg calcium carbonate (TUMS) tablet 500 mg (200 mg elemental calcium) 2 Tablet 2 Tablet, oral, ONCE IN DIALYSIS, 1 dose, On Wed09/24/23 at 0645, Routine, DialysisIndications:ESRD (end stage renal disease) ([facility]),Secondary hyperparathyroidism ([facility]) Given 09/24/2023 6:48 EST 2 Tablets epoetin ken (EPOGEN) 20,000 unit/2 mL injection 1,500 Units 1,500 Units, intravenous, ONCE IN DIALYSIS, 1 dose, On Wed09/24/23 at 0645, Routine, DialysisIndications:ESRD (end stage renal disease) ([facility]),Anemia of chronic renal failure, unspecified CKD stage Given 09/24/2023 6:48 EST 1,500 Units heparin injection 9,000 Units 9,000 Units, intravenous, ONCE IN DIALYSIS, 1 dose, On Wed09/24/23 at 0645, Routine, Dialysis, Now x1 bolus 4500 units to be given at the beginning of dialysis 1500 units/hour to be given over the course of dialysis (9000 units total). Stop 1 hour prior to end of treatment. To be administered per Policy [id number].Indications:ESRD (end stage renal disease) ([facility]) Given 09/24/2023 6:49 EST 9,000 Units LiquaCel liquid protein liquid 30 mL 30 mL, oral, ONCE IN DIALYSIS, 1 dose, On Wed09/24/23 at 0645, RoutineIndications:Hypoalbuminemi a,ESRD (end stage renal disease) ([facility]) Given 09/24/2023 6:49 EST 30 mL documented in this encounter Orders Dialysis Count Last Ordered Date First Orde red Date HEMODIALYSIS 1 09/24/2023 documented in this encounter Care Teams Salvage Diver Relationship Specialty Start Date End Date Ken Greer MD [address] [place] [address] PCP - General 07/07/23 documented as of this encounter
--- OUTSIDE RECORDS SUMMARY | 2024-12-05 12:17 | XMS_ITS | Encounter Summary ---
Author Organization [facility] Address [address] [place] [address] Care Team Providers Care Scrap Handler Name Role Phone Ken Greer MD Primary Care Provider [phone] Encounter Details Date Type Department Care Team (Late st Contact Info) Description 10/01/[address] [facility] [address] [place], [place] [address] Melissa Crespo, RN Social History Tobacco Use [...] [facility] [place] [address] [place] [id number] Carlota Jin MD 1 [facility], Level [address] [place] [phone] 12/08/2024 6:[address] [facility] [address] [place] [id number] Carlota Jin MD 1 [facility], [facility] 2 [place] [phone] 12/11/2024 6:[address] [facility] [place] [address] [place], [place] [address] [phone] Carlota Jin MD 1 [facility], [facility] [address] [place] [phone] 12/13/2024 6:[address] [facility] [place] [address] [place] [address] Carlota Jin MD 1 [facility], [facility] 2 [place] [phone] 12/15/2024 6:[address] [facility] [place] [address] [place] [address] Carlota Jin MD 1 [facility], [facility] 2 [place] [phone] 12/18/2024 6:[address] [facility] [place] [address] [place] [address] Carlota Jin MD 1 [facility], [facility] 2 [place] [phone] 12/20/2024 6:[address] [facility] [place] [address] [place], [place] [address] Carlota Jin MD 1 [facility], [facility] 2 [place] [phone] 12/22/2024 6:[address] [facility] [place] [address] [place], [place] [id number] Carlota Jin MD 1 [facility], [facility] 2 [place] [phone] 12/25/2024 6:[address] [facility] [place] [address] [place], [place] [phone] Carlota Jin MD 1 [facility], [facility] 2 [place] [phone] 12/27/2024 6:[address] [facility] [place] [address] [place], [place] [id number] Carlota Jin MD 1 [facility], [facility] 2 [place] [phone] 12/29/2024 6:[address] [facility] [place] [address] [place], [place] [address] Carlota Jin MD 1 [facility], [facility] 2 [place] [phone] 01/01/2025 6:[address] [facility] [place] [address] [place], [place] [id number] Carlota Jin MD 1 [facility], [facility] 2 [place] [phone] 01/03/2025 6:[address] [facility] [place] [address] [place], [place] [address] Carlota Jin MD 1 [facility], [facility] 2 [place] [phone] 01/05/2025 6:[address] [facility] [place] [address] [place] [address] Carlota Jin MD 1 [facility], [facility] 2 [place] [phone] 01/08/2025 6:[address] [facility] [place] [address] [place], [place] [id number] Carlota Jin MD 1 [facility], [address] [phone] 01/10/2025 6:[address] [facility] [place] [address] [place], [place] [address] Carlota Jin MD 1 [facility], [address] [phone] 01/12/2025 6:[address] [facility] [place] [address] [place], [place] [address] Carlota Jin MD 1 [facility], [address] [phone] 01/15/2025 6:[address] [facility] [place] [address] [place], [place] [address] Carlota Jin MD 1 [facility], [facility] 2 [place] [phone] 01/17/2025 6:[address] [facility] [place] [address] [place], [place] [address] Carlota Jin MD 1 [facility], [facility] 2 [place] [phone] 01/19/2025 6:[address] [facility] [place] [address] [place], [place] [address] Carlota Jin MD 1 [facility], [facility] 2 [place] [phone] 01/22/2025 6:[address] [facility] [place] [address] [place] [address] Carlota Jin MD 1 [facility], [facility] 2 [place] [phone] 01/24/2025 6:[address] [facility] [place] [address] [place], [place] [address] Carlota Jin MD 1 [facility], [facility] 2 [place] [phone] 01/26/2025 6:[address] [facility] [place] [address] [place], [place] [phone] Carlota Jin MD 1 [facility], [facility] 2 [place] [phone] 01/29/2025 6:[address] [facility] [place] [address] [place], [place] [address] Carlota Jin MD 1 [facility], [facility] 2 [place] [phone] 01/31/2025 6:[address] [facility] [place] [address] [place], [place] [address] Carlota Jin MD 1 [facility], [facility] 2 [place] [phone] 02/02/2025 6:[address] [facility] [place] [address] [place], [place] [address] Carlota Jin MD 1 [facility], [facility] 2 [place] [phone] 02/05/2025 6:[address] [facility] [place] [address] [place], [place] [address] Carlota Jin MD 1 [facility], [facility] 2 [place] [phone] 02/07/2025 6:[address] [facility] [place] [address] [place], [place] [id number] Carlota Jin MD 1 [facility], [facility] 2 [place] [phone] 02/09/2025 6:[address] [facility] [place] [address] [place], [place] [address] Carlota Jin MD 1 [facility], [facility] 2 [place] [phone] 02/12/2025 6:[address] [facility] [place] [address] [place], [place] [address] Carlota Jin MD 1 [facility], [facility] 2 [place] [phone] 02/14/2025 6:[address] [facility] [place] [address] [place], [place] [id number] Carlota Jin MD 1 [facility], [facility] 2 [place] [phone] 02/16/2025 6:[address] [facility] [place] [address] [place], [place] [address] Carlota Jin MD 1 [facility], [facility] 2 [place] [phone] 02/19/2025 6:[address] [facility] [place] [address] [place] [address] Carlota Jin MD 1 [facility], [facility] 2 [place] [phone] 02/21/2025 6:[address] [facility] [place] [address] [place], [place] [id number] Carlota Jin MD 1 [facility], [facility] 2 [place] [phone] documented as of this encounter Visit Diagnoses Not on filedocumented in this encounter Care Teams Scrap Handler Relationship Specialty Start Date End Date Ken Greer [place] [address] PCP - General 07/07/23 documented as of this encounter
--- OUTSIDE RECORDS SUMMARY | 2024-12-05 12:18 | XMS_ITS | Encounter Summary ---
Author Organization [facility] Address [address] [place] [address] Care Team Providers Care Newborn Hearing Screener Name Role Phone Ken Greer MD Primary Care Provider [phone] Encounter Details Date Type Department Care Team (Late st Contact Info) Description 09/08/2023 Documentation Visit [facility] [address] [place], [place] [id number] Marcela Cox, VIDYA Social History Tobacco Use [...] of this encounter Progress Notes * Marcela Cox, VIDYA - 09/08/2023 7886 EST 09/08/23 14:08 [facility] DIALYSIS MEDICATION RECONCILIATION Medication review of home medications (prescriptions, anjh-fic-klorduq, herbals, vitamin/mineral/dietary (nutritional) supplements, medical marijuana, and recreational) was completed through: Patient/caregiver given printed prescriptions/medication summary and reviewed for accuracy. Current Medications Current Outpatient Medications Medication ??? albuterol 90 mcg/actuation inhaler ??? amLODIPine (NORVASC) 10 mg tablet ??? atorvastatin (LIPITOR) 40 mg tablet ??? calcium carbonate (TUMS) 200 mg calcium (500 mg) tablet,chewable ??? carvediloL (COREG) 12.5 mg tablet ??? cholecalciferol, Vitamin D3, 25 mcg (1,000 unit) tablet ??? ciprofloxacin HCl (CIPRO) 500 mg tablet ??? famotidine (PEPCID) 40 mg tablet ??? FLOVENT HFA 110 mcg/actuation inhaler ??? furosemide (LASIX) 20 mg tablet ??? hydrOXYzine (ATARAX) 25 mg tablet ??? insulin lispro (HUMALOG KWIKPEN INSULIN) 100 unit/mL injectable pen ??? LEVEMIR FLEXPEN 100 unit/mL (3 mL) injectable pen ??? MULTIVITAMIN ORAL ??? nicotine (NICODERM CQ) 21 mg/24 hr patch ??? olmesartan (BENICAR) 5 mg tablet ??? pregabalin (LYRICA) 150 mg capsule ??? sevelamer hydrochloride (RENAGEL) 800 mg tablet ??? sildenafil citrate (VIAGRA) 100 mg tablet ??? sodium zirconium cyclosilicate (LOKELMA) 5 gram powder in packet ??? VICTOZA 3-JULY 0.6 mg/0.1 mL (18 mg/3 mL) injectable pen No current facility-administered medications for this visit. Marcela Cox RN documented in this encounter Plan of Treatment Upcoming Encounters Date Type Department Care Team (Late st Contact Info) Description 12/06/2024 6:45 EST Treatment [facility] [address] [place] [address] Carlota Jin MD [address] [phone] 12/08/2024 6:45 EST Treatment [facility] [address] [place] [address] Carlota Jin MD 1 [facility], [facility] [address] [place] [phone] 12/11/2024 6:45 EST Treatment [facility] [place] [address] [place], [place] [id number] Carlota Jin MD 1 [facility], [facility] [address] [place] [phone] 12/13/2024 6:45 EST Treatment [facility] [place] [address] [place], [place] [id number] Carlota Jin MD 1 [facility], [facility] [address] [place] [phone] 12/15/2024 6:45 EST Treatment [facility] [place] [address] [place] [address] Carlota Jin MD 1 [facility], [facility] [address] [place] [phone] 12/18/2024 6:45 EST Treatment [facility] [place] [address] [place], [place] [id number] Carlota Jin MD 1 [facility], [facility] [address] [place] [phone] 12/20/2024 6:45 EST Treatment [facility] [place] [address] [place], [place] [id number] Carlota Jin MD 1 [facility], [facility] [address] [place] [phone] 12/22/2024 6:45 EST Treatment [facility] [place] [address] [place], [place] [address] Carlota Jin MD 1 [facility], [facility] [address] [place] [phone] 12/25/2024 6:45 EST Treatment [facility] [place] [address] [place], [place] [id number] Carlota Jin MD 1 [facility], [facility] [address] [place] [phone] 12/27/2024 6:45 EST Treatment [facility] [place] [address] [place], [place] [id number] Carlota Jin MD 1 [facility], [facility] [address] [place] [phone] 12/29/2024 6:45 EST Treatment [facility] [place] [address] [place], [place] [id number] Carlota Jin MD [address] [phone] 01/01/2025 6:45 EDT Treatment [facility] [place] [address] [place], [place] [id number] Carlota Jin MD 1 [facility] [address] [place] [phone] 01/03/2025 6:45 EDT Treatment [facility] [place] [address] [place], [place] [id number] Carlota Jin MD 1 [facility], [facility] [address] [place] [phone] 01/05/2025 6:45 EDT Treatment [facility] [place] [address] [place], [place] [id number] Carlota Jin MD 1 [facility], [facility] [address] [place] [phone] 01/08/2025 6:45 EDT Treatment [facility] [place] [address] [place], [place] [id number] Carlota Jin MD 1 [facility], [facility] [address] [place] [phone] 01/10/2025 6:45 EDT Treatment [facility] [place] [address] [place], [place] [id number] Carlota Jin MD 1 [facility], [facility] [address] [place] [phone] 01/12/2025 6:45 EDT Treatment [facility] [place] [address] [place] [address] Carlota Jin MD 1 [facility], [facility] [address] [place] [phone] 01/15/2025 6:45 EDT Treatment [facility] [address] [place], [place] [id number] Carlota Jin MD 1 [facility], [facility] [address] [place] [phone] 01/17/2025 6:45 EDT Treatment [facility] [place] [address] [place], [place] [id number] Carlota Jin MD 1 [facility], [facility] [address] [place] [phone] 01/19/2025 6:45 EDT Treatment [facility] [place] [address] [place], [place] [id number] Carlota Jin MD 1 [facility], [facility] [address] [place] [phone] 01/22/2025 6:45 EDT Treatment [facility] [place] [address] [place], [place] [id number] Carlota Jin MD 1 [facility], [facility] [address] [place] [phone] 01/24/2025 6:45 EDT Treatment [facility] [place] [address] [place], [place] [id number] Carlota Jin MD 1 [facility], [facility] [address] [place] [phone] 01/26/2025 6:45 EDT Treatment [facility] [place] [address] [place], [place] [id number] Carlota Jin MD 1 [facility], [facility] [address] [place] [phone] 01/29/2025 6:45 EDT Treatment [facility] [place] [address] [place], [place] [id number] Carlota Jin MD 1 [facility], [facility] [address] [place] [phone] 01/31/2025 6:45 EDT Treatment [facility] [place] [address] [place], [place] [address] Carlota Jin MD 1 [facility], [facility] [address] [place] [phone] 02/02/2025 6:45 EDT Treatment [facility] [place] [address] [place], [place] [id number] Carlota Jin MD 1 [facility], [facility] [address] [place] [phone] 02/05/2025 6:45 EDT Treatment [facility] [place] [address] [place] [address] Carlota Jin MD 1 [facility], [facility] [address] [place] [phone] 02/07/2025 6:45 EDT Treatment [facility] [address] [place] [address] Carlota Jin MD 1 [facility], [facility] [address] [place] [phone] 02/09/2025 6:45 EDT Treatment [facility] [place] [address] [place], [place] [id number] Carlota Jin MD 1 [facility], [facility] [address] [place] [phone] 02/12/2025 6:45 EDT Treatment [facility] [place] [address] [place], [place] [id number] Carlota Jin MD 1 [facility], [address] [phone] 02/14/2025 6:45 EDT Treatment [facility] [place] [address] [place], [place] [id number] Carlota Jin MD [address] [place] [phone] 02/16/2025 6:45 EDT Treatment [facility] [place] [address] [place], [place] [id number] Carlota Jin MD [address] [place] [phone] 02/19/2025 6:45 EDT Treatment [facility] [place] [address] [place], [place] [id number] Carlota Jin MD [address] [place] [phone] 02/21/2025 6:45 EDT Treatment [facility] [place] [address] [place], [place] [id number] Carlota Jin MD [address] [place] [phone] documented as of this encounter Visit Diagnoses Not on filedocumented in this encounter Discontinued Medications Medication Sig Discontinue Reason Start Date End Da te TRULICITY 0.75 mg/0.5 mL subcutaneous pen Alternate therapy 08/03/2023 09/08/2023 documented as of this encounter Historical Medications * This list may reflect changes made after this encounter. VICTOZA 3-JULY 0.6 mg/0.1 mL (18 mg/3 mL) injectable pen 08/27/2023 11/10/2023 ciprofloxacin HCl (CIPRO) 500 mg tablet TAKE ONE TABLET BY MOUTH EVERY DAY FOR 10 DAYS 09/03/2023 09/29/2023 added in this encounter Care Teams Newborn Hearing Screener Relationship Specialty Start Date End Date Ken Greer MD [facility] [address] [facility] [address] PCP - General 07/07/23 documented as of this encounter
--- OUTSIDE RECORDS SUMMARY | 2024-12-05 12:18 | XMS_ITS | Encounter Summary ---
Author Organization [facility] Address [address] [place] [address] Care Team Providers Care Soils Technician Name Role Phone Ken Greer MD Primary Care Provider [phone] Encounter Details Date Type Department Care Team (Latest Contact Info) Description 09/03/2023 6:45 EST Treatment [facility] [address] [place], [place] [id number] Carlota Jin MD 1 [facility], Level [address] [place] [phone] ESRD (end stage renal disease) ([facility]) (Primary Dx); Anemia of chronic renal failure, unspecified CKD stage; Hypoalbuminemia; Secondary hyperparathyroidism ([facility]); Encounter for immunization Social History Tobacco Use Types Packs/Day Years [...] - Temperature - - Respiratory Rate 16 09/03/2023 0637 EST Oxygen Saturation - - Inhaled Oxygen Concentration - - Weight 88.1 kg (194 lb 3.6 oz) 09/03/[address] Height - - Body Mass Index 28.68 07/08/2023 0839 EDT documented in this encounter Miscellaneous Notes * Flowsheet Note - Marcela Cox RN - 09/03/2023 1354 EST 09/03/23 1136 Post-Hemodialysis Assessment Total Blood Processed (L) 90.3 Liters On Line Clearance: spKt/V 1.49 spKt/V Dialyzer Clearance Lightly streaked Treatment UFR (ml:kg:hr) 4.82 ml:kg:hr Final Critline Profile (%/hr) -1.4 Final Profile Profile A Fluid Removed (L) 1.85 L Post-Dialysis Scale Weight 86.4 kg (190 lb 7.6 oz) Wheelchair Weight 0 kg (0 lb) Prosthesis Weight 0 kg (0 lb) Post-Treatment Weight (kg) 86.4 Treatment Weight Change (kg) 1.7 kg Day Target Weight (kg) 86.8 Post Sitting/Lying BP 149/82 Post Sitting/Lying pulse 61 Post Standing BP 147/74 Post Standing Pulse 69 Temp 36.5 ??C (97.7 ??F) Temp src [...] [facility] [place] [address] [place], [place] [address] Carlota Jin MD 1 [facility], Level [address] [place] [phone] 12/08/2024 6:45 EST Treatment [facility] [place] [address] [place], [place] [id number] Carlota Jin MD 1 [facility], [facility] [address] [place] [phone] 12/11/2024 6:45 EST Treatment [facility] [place] [address] [place], [place] [id number] Carlota Jin MD 1 [facility], [facility] [address] [place] [phone] 12/13/2024 6:45 EST Treatment [facility] [place] [address] [place], [place] [id number] Carlota Jin MD 1 [facility], [facility] [address] [place] [phone] 12/15/2024 6:45 EST Treatment [facility] [place] [address] [place], [place] [id number] Carlota Jin MD 1 [facility], [facility] [address] [place] [phone] 12/18/2024 6:45 EST Treatment [facility] [place] [address] [place], [place] [id number] Carlota Jin MD 1 [facility], [facility] [address] [place] [phone] 12/20/2024 6:45 EST Treatment [facility] [place] [address] [place], [place] [id number] Carlota Jin MD 1 [facility], [facility] [address] [place] [phone] 12/22/2024 6:45 EST Treatment [facility] [place] [address] [place], [place] [id number] Carlota Jin MD 1 [facility], [facility] [address] [place] [phone] 12/25/2024 6:45 EST Treatment [facility] [place] [address] [place], [place] [id number] Carlota Jin MD 1 [facility], [facility] [address] [place] [phone] 12/27/2024 6:45 EST Treatment [facility] [place] [address] [place], [place] [id number] Carlota Jin MD 1 [facility], [facility] [address] [place] [phone] 12/29/2024 6:45 EST Treatment [facility] [address] [place], [place] [id number] Carlota Jin MD 1 [facility], [facility] [address] [place] [phone] 01/01/2025 6:45 EDT Treatment [facility] [address] [place], [place] [id number] Carlota Jin MD 1 [facility], [facility] [address] [place] [phone] 01/03/2025 6:45 EDT Treatment [facility] [place] [address] [place], [place] [id number] Carlota Jin MD 1 [facility], [facility] [address] [place] [phone] 01/05/2025 6:45 EDT Treatment [facility] [place] [address] [place], [place] [id number] Carlota Jin MD [address] [place] [address], [address] [phone] 01/08/2025 6:45 EDT Treatment [facility] [place] [address] [place], [place] [id number] Carlota Jin MD [address] [place] [address], [address] [phone] 01/10/2025 6:45 EDT Treatment [facility] [place] [address] [place], [place] [id number] Carlota Jin MD [address] [place] [address], [facility] [address] [place] [phone] 01/12/2025 6:45 EDT Treatment [facility] [place] [address] [place], [place] [id number] Carlota Jin MD 1 [facility], [facility] [address] [place] [phone] 01/15/2025 6:45 EDT Treatment [facility] [place] [address] [place], [place] [id number] Carlota Jin MD 1 [facility], [facility] [address] [place] [phone] 01/17/2025 6:45 EDT Treatment [facility] [place] [address] [place], [place] [address] Carlota Jin MD 1 [facility], [facility] [address] [place] [phone] 01/19/2025 6:45 EDT Treatment [facility] [place] [address] [place], [place] [id number] Carlota Jin MD 1 [facility], [facility] [address] [place] [phone] 01/22/2025 6:45 EDT Treatment [facility] [place] [address] [place] [address] Carlota Jin MD 1 [facility], [facility] [address] [place] [phone] 01/24/2025 6:45 EDT Treatment [facility] [place] [address] [place], [place] [id number] Carlota Jin MD 1 [facility], [facility] [address] [place] [phone] 01/26/2025 6:45 EDT Treatment [facility] [place] [address] [place], [place] [id number] Carlota Jin MD 1 [facility], [facility] [address] [place] [phone] 01/29/2025 6:45 EDT Treatment [facility] [place] [address] [place], [place] [id number] Carlota Jin MD 1 [facility], [facility] [address] [place] [phone] 01/31/2025 6:45 EDT Treatment [facility] - [place] [address] [place], [place] [id number] Carlota Jin MD 1 [facility], [facility] [address] [place] [phone] 02/02/2025 6:45 EDT Treatment [facility] [place] [address] [place] [address] Carlota Jin MD 1 [facility], [address] [phone] 02/05/2025 6:45 EDT Treatment [facility] [place] [address] [place], [place] [id number] Carlota Jin MD 1 [facility], [facility] [address] [place] [phone] 02/07/2025 6:45 EDT Treatment [facility] [place] [address] [place], [place] [id number] Carlota Jin MD 1 [facility], [facility] [address] [place] [phone] 02/09/2025 6:45 EDT Treatment [facility] [place] [address] [place] [address] Carlota Jin MD 1 [facility], [facility] [address] [place] [phone] 02/12/2025 6:45 EDT Treatment [facility] [place] [address] [place] [address] Carlota Jin MD 1 [facility], [facility] [address] [place] [phone] 02/14/2025 6:45 EDT Treatment [facility] [place] [address] [place] [address] Carlota Jin MD 1 [facility], [address] [phone] 02/16/2025 6:45 EDT Treatment [facility] [place] [address] [place] [address] Carlota Jin MD 1 [facility], [address] [phone] 02/19/2025 6:45 EDT Treatment [facility] [place] [address] [place] [address] Carlota Jin MD 1 [facility], [facility] [address] [place] [phone] 02/21/2025 6:45 EDT Treatment [facility] [place] [address] [place], [place] [id number] Carlota Jin MD 1 [facility], [facility] [address] [place] [phone] documented as of this encounter Procedures Procedure Name Priority Date/Time Associated Diagnosis Comments HEMODIALYSIS Routine 09/03/2023 6:37 EST ESRD (end stage renal disease) ([facility]) documented in this encounter Visit Diagnoses Diagnosis ESRD (end stage renal disease) ([facility])- Primary End stage renal disease Anemia of chronic renal failure, unspecified CKD stage Hypoalbuminemia Other disorders of plasma protein metabolism Secondary hyperparathyroidism ([facility]) Secondary hyperparathyroidism (of renal origin) Encounter for immunization Need for other specified prophylactic vaccination against single bacterial disease documented in this encounter Administered Medications Inactive Administered Medications - up to 3 most recent administrations Medication Order MAR Action Action Date Dose Rate Site calcium carbonate (TUMS) tablet 500 mg (200 mg elemental calcium) 2 Tablet 2 Tablet, oral, ONCE IN DIALYSIS, 1 dose, On Wed09/03/23 at 0700, Routine, DialysisIndications:ESRD (end stage renal disease) ([facility]),Secondary hyperparathyroidism ([facility]) Given 09/03/2023 6:55 EST 2 Tablets epoetin ken (EPOGEN) 20,000 unit/2 mL injection 1,500 Units 1,500 Units, intravenous, ONCE IN DIALYSIS, 1 dose, On Wed09/03/23 at 0700, Routine, DialysisIndications:ESRD (end stage renal disease) ([facility]),Anemia of chronic renal failure, unspecified CKD stage Given 09/03/2023 6:54 EST 1,500 Units heparin injection 9,000 Units 9,000 Units, intravenous, ONCE IN DIALYSIS, 1 dose, On Wed09/03/23 at 0700, Routine, Dialysis, Now x1 bolus 4500 units to be given at the beginning of dialysis 1500 units/hour to be given over the course of dialysis (9000 units total). Stop 1 hour prior to end of treatment. To be administered per Policy [id number].Indications:ESRD (end stage renal disease) ([facility]) Given 09/03/2023 6:54 EST 9,000 Units iron sucrose (VENOFER) injection 200 mg 200 mg, intravenous, ONCE IN DIALYSIS, 1 dose, On Wed09/03/23 at 0700, Routine, DialysisIndications:Hypoalbuminem ia,Encounter for immunization,ESRD (end stage renal disease) ([facility]) Given 09/03/2023 6:54 EST 200 mg LiquaCel liquid protein liquid 30 mL 30 mL, oral, ONCE IN DIALYSIS, 1 dose, On Wed09/03/23 at 0700, RoutineIndications:Hypoalbuminemi a,ESRD (end stage renal disease) ([facility]) Given 09/03/2023 6:55 EST 30 mL documented in this encounter Orders Dialysis Count Last Ordered Date First Orde red Date HEMODIALYSIS 1 09/03/2023 documented in this encounter Care Teams Soils Technician Relationship Specialty Start Date End Date Ken Greer MD [address] [facility] [address] PCP - General 07/07/23 documented as of this encounter
--- OUTSIDE RECORDS SUMMARY | 2024-12-05 12:18 | XMS_ITS | Encounter Summary ---
Author Organization [facility] Address [address] [place] [address] Care Team Providers Care Garnett Machine Operator Helper Name Role Phone Ken Greer MD Primary Care Provider [phone] Encounter Details Date Type Department Care Team (Late st Contact Info) Description 09/17/2023 Documentation Visit [facility] [address] [place], [place] [address] Melissa Crespo, RN Social History Tobacco Use [...] Center [facility] - [place] [address] [place] [id number] Carlota Jin MD 1 [facility], Level 2 [place] [phone] 12/08/2024 6:45 EST Treatment [facility] [address] [place] [id number] Carlota Jin MD 1 [facility] [place] [phone] 12/11/2024 6:45 EST Treatment [facility] [place] [address] [place], [place] [address] [phone] Carlota Jin MD 1 [facility] [address] [place] [phone] 12/13/2024 6:45 EST Treatment [facility] [place] [address] [place] [address] Carlota Jin MD 1 [facility], [facility] 2 [place] [phone] 12/15/2024 6:45 EST Treatment [facility] [place] [address] [place] [address] Carlota Jin MD 1 [facility], [facility] 2 [place] [phone] 12/18/2024 6:45 EST Treatment [facility] [place] [address] [place] [address] Carlota Jin MD 1 [facility], [facility] [address] [place] [phone] 12/20/2024 6:45 EST Treatment [facility] [place] [address] [place], [place] [id number] Carlota Jin MD 1 [facility] [address] [place] [phone] 12/22/2024 6:45 EST Treatment [facility] [place] [address] [place], [place] [id number] Carlota Jin MD 1 [facility], [facility] 2 [place] [phone] 12/25/2024 6:45 EST Treatment [facility] - [place] [address] [place], [place] [id number] Carlota Jin MD 1 [facility], [facility] 2 [place] [phone] 12/27/2024 6:45 EST Treatment [facility] - [place] [address] [place], [place] [id number] Carlota Jin MD 1 [facility], [facility] [address] [place] [phone] 12/29/2024 6:45 EST Treatment [facility] [place] [address] [place], [place] [address] Carlota Jin MD 1 [facility], [facility] 2 [place] [phone] 01/01/2025 6:45 EDT Treatment [facility] [place] [address] [place], [place] [id number] Carlota Jin MD 1 [facility], [facility] [address] [place] [phone] 01/03/2025 6:45 EDT Treatment [facility] [place] [address] [place], [place] [id number] Carlota Jin MD 1 [facility], [facility] 2 [place] [phone] 01/05/2025 6:45 EDT Treatment [facility] - [place] [address] [place] [address] Carlota Jin MD 1 [facility], [facility] 2 [place] [phone] 01/08/2025 6:45 EDT Treatment [facility] - [place] [address] [place], [place] [id number] Carlota Jin MD 1 [facility], [address] [phone] 01/10/2025 6:45 EDT Treatment [facility] - [place] [address] [place], [place] [phone] Carlota Jin MD 1 [facility], [address] [phone] 01/12/2025 6:45 EDT Treatment [facility] - [place] [address] [place], [place] [phone] Carlota Jin MD 1 [facility], [address] [phone] 01/15/2025 6:45 EDT Treatment [facility] - [place] [address] [place], [place] [id number] Carlota Jin MD 1 [facility], [facility] [address] [place] [phone] 01/17/2025 6:45 EDT Treatment [facility] - [place] [address] [place], [place] [phone] Carlota Jin MD 1 [facility], [facility] 2 [place] [phone] 01/19/2025 6:45 EDT Treatment [facility] - [place] [address] [place], [place] [phone] Carlota Jin MD 1 [facility], [facility] 2 [place] [phone] 01/22/2025 6:45 EDT Treatment [facility] [place] [address] [place] [address] Carlota Jin MD 1 [facility], [facility] 2 [place] [phone] 01/24/2025 6:45 EDT Treatment [facility] [place] [address] [place], [place] [phone] Carlota Jin MD 1 [facility], [facility] 2 [place] [phone] 01/26/2025 6:45 EDT Treatment [facility] [place] [address] [place], [place] [id number] Carlota Jin MD 1 [facility], [facility] [address] [place] [phone] 01/29/2025 6:45 EDT Treatment [facility] [place] [address] [place], [place] [address] Carlota Jin MD 1 [facility], [facility] [address] [place] [phone] 01/31/2025 6:45 EDT Treatment [facility] - [place] [address] [place], [place] [id number] Carlota Jin MD 1 [facility], [facility] 2 [place] [phone] 02/02/2025 6:45 EDT Treatment [facility] - [place] [address] [place], [place] [phone] Carlota Jin MD 1 [facility], [facility] 2 [place] [phone] 02/05/2025 6:45 EDT Treatment [facility] - [place] [address] [place], [place] [phone] Carlota Jin MD 1 [facility], [facility] 2 [place] [phone] 02/07/2025 6:45 EDT Treatment [facility] - [place] [address] [place], [place] [phone] Carlota Jin MD 1 [facility], [facility] 2 [place] [phone] 02/09/2025 6:45 EDT Treatment [facility] - [place] [address] [place], [place] [phone] Carlota Jin MD 1 [facility], [facility] 2 [place] [phone] 02/12/2025 6:45 EDT Treatment [facility] - [place] [address] [place], [place] [address] Carlota Jin MD 1 [facility] 2 [place] [phone] 02/14/2025 6:45 EDT Treatment [facility] - [place] [address] [place], [place] [phone] Carlota Jin MD 1 [facility], [facility] 2 [place] [phone] 02/16/2025 6:45 EDT Treatment [facility] - [place] [address] [place], [place] [phone] Carlota Jin MD 1 [facility], [facility] 2 [place] [phone] 02/19/2025 6:45 EDT Treatment [facility] - [place] [address] [place] [address] Carlota Jin MD 1 [facility], [facility] [address] [place] [phone] 02/21/2025 6:45 EDT Treatment [facility] - [place] [address] [place], [place] [phone] Carlota Jin MD 1 [facility], [facility] [address] [place] [phone] documented as of this encounter Visit Diagnoses Not on filedocumented in this encounter Care Teams Garnett Machine Operator Helper Relationship Specialty Start Date End Date Ken Gre[place] [address] PCP - General 07/07/23 documented as of this encounter
--- OUTSIDE RECORDS SUMMARY | 2024-12-05 12:18 | XMS_ITS | Encounter Summary ---
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 Name Role Phone Ken Greer MD Primary Care Provider [phone] Encounter Details Date Type Department Care Team (Latest Contact Info) Description 09/01/2023 6:45 EST Treatment [facility] [address] [place], [place] [id number] Carlota Jin MD 1 [facility], Level [address] [place] [address] ESRD (end stage renal disease) ([facility]) (Primary Dx); Anemia of chronic renal failure, unspecified CKD stage; Hypoalbuminemia; Secondary hyperparathyroidism ([facility]) Social History Tobacco Use [...] - Temperature - - Respiratory Rate 16 09/01/2023 0635 EST Oxygen Saturation - - Inhaled Oxygen Concentration - - Weight 89.1 kg (196 lb 6.9 oz) 09/01/[address] Height - - Body Mass Index 29.01 07/08/2023 0839 EDT documented in this encounter Ordered Prescriptions Prescription Sig Dispense Quantity Refills Last Filled Start Date End Date sodium zirconium cyclosilicate (LOKELMA) 5 gram powder in packet Take 5 g by mouth daily. Non Non-dialysi s days 30 Packet 2 09/01/2023 09/01/2023 documented in this encounter Miscellaneous Notes * Flowsheet Note - Marcela Cox RN - 09/01/2023 1328 EST 09/01/23 1126 Post-Hemodialysis Assessment Total Blood Processed (L) 90.42 Liters On Line Clearance: spKt/V 1.47 spKt/V Dialyzer Clearance Lightly streaked Treatment UFR (ml:kg:hr) 7.07 ml:kg:hr Final Critline Profile (%/hr) -2.03 Final Profile Profile A Critline refill Negative (31.3-31.2) Fluid Removed (L) 2.6 L Post-Dialysis Scale Weight 86.6 kg (190 lb 14.7 oz) Wheelchair Weight 0 kg (0 lb) Prosthesis Weight 0 kg (0 lb) Post-Treatment Weight (kg) 86.6 Treatment Weight Change (kg) 2.5 kg Day Target Weight (kg) 87 Post Sitting/Lying BP 159/80 Post Sitting/Lying pulse 65 Post Standing BP 143/70 Post Standing Pulse 72 Temp 36.2 ??C [...] Dialysis Rounding - Skye Gomez NP - 09/01/2023 0645 EST Dialysis Provider's Routine Assessment The visit was conducted via telehealth (audio/video) [facility] and the provider from their Home Office. The interaction was assisted by Bruxie. The patient has no complaints and no new issues have been raised by the dialysis staff. Consent has been obtained and is available on file. Gerson Bruner was seen and examined as appropriate during Dialysis. Pertinent lab results were reviewed. Changes since last visit: None Changes to current prescriptions/orders: None Pt notes his knees have been giving out on him, hyperkalemia noted. Lokelma 5 g ordered on non-dialysis days. May benefit from PT, pt advised to talk with his PCP. The concept of ???Telemedicine?? has been described [...] copays, deductible or coinsurance for this service. Skye Gomez NP documented in this encounter Plan of Treatment Upcoming Encounters Date Type Department Care Team (Late st Contact Info) Description 12/06/2024 6:45 EST Treatment [facility] [address] [place], [place] [id number] Carlota Jin MD 1 [facility], Level [address] [place] [address] 12/08/2024 6:45 EST Treatment [facility] [address] [place], [place] [id number] Carlota Jin MD 1 [facility], Level [address] [place] [address] 12/11/2024 6:45 EST Treatment [facility] [place] [address] [place], [place] [phone] Carlota Jin MD 1 [facility], [facility] 2 [place] [phone] 12/13/2024 6:45 EST Treatment [facility] [place] [address] [place], [place] [id number] Carlota Jin MD 1 [facility], [facility] 2 [place] [phone] 12/15/2024 6:45 EST Treatment [facility] [place] [address] [place] [address] Carlota Jin MD 1 [facility], [facility] 2 [place] [phone] 12/18/2024 6:45 EST Treatment [facility] [place] [address] [place], [place] [id number] Carlota Jin MD 1 [facility], [facility] 2 [place] [phone] 12/20/2024 6:45 EST Treatment [facility] [place] [address] [place], [place] [phone] Carlota Jin MD 1 [facility], [facility] 2 [place] [phone] 12/22/2024 6:45 EST Treatment [facility] [place] [address] [place], [place] [phone] Carlota Jin MD 1 [facility], [facility] 2 [place] [phone] 12/25/2024 6:45 EST Treatment [facility] [place] [address] [place], [place] [phone] Carlota Jin MD 1 [facility], [facility] 2 [place] [phone] 12/27/2024 6:45 EST Treatment [facility] [place] [address] [place], [place] [phone] Carlota Jin MD 1 [facility], [facility] 2 [place] [phone] 12/29/2024 6:45 EST Treatment [facility] [place] [address] [place], [place] [id number] Carlota Jin MD 1 [facility], [facility] 2 [place] [phone] 01/01/2025 6:45 EDT Treatment [facility] [place] [address] [place], [place] [id number] Carlota Jin MD 1 [facility], [facility] 2 [place] [phone] 01/03/2025 6:45 EDT Treatment [facility] [place] [address] [place], [place] [phone] Carlota Jin MD 1 [facility], [facility] 2 [place] [phone] 01/05/2025 6:45 EDT Treatment [facility] [place] [address] [place], [place] [id number] Carlota Jin MD 1 [facility], [facility] 2 [place] [phone] 01/08/2025 6:45 EDT Treatment [facility] [place] [address] [place], [place] [id number] Carlota Jin MD 1 [facility], [facility] 2 [place] [phone] 01/10/2025 6:45 EDT Treatment [facility] [place] [address] [place], [place] [address] Carlota Jin MD 1 [facility], [facility] 2 [place] [phone] 01/12/2025 6:45 EDT Treatment [facility] [place] [address] [place], [place] [address] Carlota Jin MD 1 [facility], [facility] 2 [place] [phone] 01/15/2025 6:45 EDT Treatment [facility] [place] [address] [place], [place] [id number] Carlota Jin MD 1 [facility], [facility] 2 [place] [phone] 01/17/2025 6:45 EDT Treatment [facility] [place] [address] [place] [address] Carlota Jin MD 1 [facility], [facility] 2 [place] [phone] 01/19/2025 6:45 EDT Treatment [facility] [place] [address] [place], [place] [id number] Carlota Jin MD 1 [facility], [facility] 2 [place] [phone] 01/22/2025 6:45 EDT Treatment [facility] [place] [address] [place], [place] [id number] Carlota Jin MD 1 [facility], [address] [phone] 01/24/2025 6:45 EDT Treatment [facility] [place] [address] [place], [place] [id number] Carlota Jin MD 1 [facility], [address] [phone] 01/26/2025 6:45 EDT Treatment [facility] [place] [address] [place], [place] [id number] Carlota Jin MD 1 [facility], [address] [phone] 01/29/2025 6:45 EDT Treatment [facility] [place] [address] [place], [place] [id number] Carlota Jin MD 1 [facility], [facility] 2 [place] [phone] 01/31/2025 6:45 EDT Treatment [facility] [place] [address] [place], [place] [id number] Carlota Jin MD 1 [facility], [facility] 2 [place] [phone] 02/02/2025 6:45 EDT Treatment [facility] [place] [address] [place], [place] [address] Carlota Jin MD 1 [facility], [facility] 2 [place] [phone] 02/05/2025 6:45 EDT Treatment [facility] [place] [address] [place] [address] Carlota Jin MD 1 [facility], [facility] 2 [place] [phone] 02/07/2025 6:45 EDT Treatment [facility] [place] [address] [place], [place] [id number] Carlota Jin MD 1 [facility], [facility] 2 [place] [phone] 02/09/2025 6:45 EDT Treatment [facility] [place] [address] [place], [place] [address] Carlota Jin MD 1 [facility], [facility] 2 [place] [phone] 02/12/2025 6:45 EDT Treatment [facility] [place] [address] [place], [place] [address] Carlota Jin MD 1 [facility], [facility] 2 [place] [phone] 02/14/2025 6:45 EDT Treatment [facility] [place] [address] [place], [place] [id number] Carlota Jin MD 1 [facility], [address] [phone] 02/16/2025 6:45 EDT Treatment [facility] [place] [address] [place], [place] [id number] Carlota Jin MD 1 [facility], [address] [phone] 02/19/2025 6:45 EDT Treatment [facility] [address] [place], [place] [id number] Carlota Jin MD 1 [facility], [address] [phone] 02/21/2025 6:45 EDT Treatment [facility] [address] [place], [place] [id number] Carlota Jin MD 1 [facility], [facility] 2 [place] [phone] documented as of this encounter Procedures Procedure Name Priority Date/Time Associated Diagnosis Comments COMPLETE BLOOD COUNT Routine 09/01/2023 6:40 EST ESRD (end stage renal disease) ([facility]) HEMODIALYSIS Routine 09/01/2023 6:35 EST ESRD (end stage renal disease) ([facility]) documented in this encounter Results * (ABNORMAL) COMPLETE BLOOD COUNT (09/01/2023 6:40 EST) WBC 9.98 4.00 - 10.40 K/cmm 09/01/2023 22:08 [facility] RBC 3.20(L) 4.36 - 5.78 M/cmm 09/01/2023 22:08 [facility] Hemoglobin 10.1(L) 13.8 - 17.3 g/dL 09/01/2023 22:08 [facility] HCT 30.8(L) 39.5 - 50.2 % 09/01/2023 22:08 [facility] MCV 96(H) 81 - 95 fL 09/01/2023 22:08 [facility] MCH 31.6 27.6 - 33.0 pg 09/01/2023 22:08 [facility] MCHC 32.8 32.8 - 36.4 g/dL 09/01/2023 22:08 [facility] RDW-CV 12.3 <14.2 % 09/01/2023 22:08 [facility] RDW-SD 43.5 <46.0 fl 09/01/2023 22:08 [facility] PLT 228 141 - 377 K/cmm 09/01/2023 22:08 [facility] MPV 11.7 9.5 - 12.7 fL 09/01/2023 22:08 [facility] Blood VENOUS BLOOD / Unknown Venipuncture / Unknown 09/01/2023 6:40 EST 09/01/2023 6:40 EST us Carlota Jin MD HEMATOLOGY & PF4 ORDERABL ES Final Result [facility] [address] [place] [address] documented in this encounter Visit Diagnoses Diagnosis ESRD (end stage renal disease) ([facility])- Primary End stage renal disease Anemia of chronic renal failure, unspecified CKD stage Hypoalbuminemia Other disorders of plasma protein metabolism Secondary hyperparathyroidism ([facility]) Secondary hyperparathyroidism (of renal origin) documented in this encounter Administered Medications Inactive Administered Medications - up to 3 most recent administrations Medication Order MAR Action Action Date Dose Rate Site calcium carbonate (TUMS) tablet 500 mg (200 mg elemental calcium) 2 Tablet 2 Tablet, oral, ONCE IN DIALYSIS, 1 dose, On Wed09/01/23 at 0700, Routine, DialysisIndications:ESRD (end stage renal disease) ([facility]),Secondary hyperparathyroidism ([facility]) Given 09/01/2023 7:16 EST 2 Tablets epoetin ken (EPOGEN) 20,000 unit/2 mL injection 1,500 Units 1,500 Units, intravenous, ONCE IN DIALYSIS, 1 dose, On Wed09/01/23 at 0700, Routine, DialysisIndications:ESRD (end stage renal disease) ([facility]),Anemia of chronic renal failure, unspecified CKD stage Given 09/01/2023 7:16 EST 1,500 Units heparin injection 9,000 Units 9,000 Units, intravenous, ONCE IN DIALYSIS, 1 dose, On Wed09/01/23 at 0700, Routine, Dialysis, Now x1 bolus 4500 units to be given at the beginning of dialysis 1500 units/hour to be given over the course of dialysis (9000 units total). Stop 1 hour prior to end of treatment. To be administered per Policy [id number].Indications:ESRD (end stage renal disease) ([facility]) Given 09/01/2023 7:16 EST 9,000 Units LiquaCel liquid protein liquid 30 mL 30 mL, oral, ONCE IN DIALYSIS, 1 dose, On Wed09/01/23 at 0700, RoutineIndications:Hypoalbuminemi a,ESRD (end stage renal disease) ([facility]) Given 09/01/2023 7:16 EST 30 mL documented in this encounter Orders Dialysis Count Last Ordered Date First Orde red Date HEMODIALYSIS 1 09/01/2023 documented in this encounter Care Teams Reinforcing Steel 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
--- OUTSIDE RECORDS SUMMARY | 2024-12-05 12:18 | XMS_ITS | Encounter Summary ---
Author Organization [facility] Address [address] [place] [address] Care Team Providers Care Body Stylist Name Role Phone Ken Greer MD Primary Care Provider [phone] Encounter Details Date Type Department Care Team (Late st Contact Info) Description 08/31/2023 Documentation Visit [facility] [place] [id number] Shelley Eden, RD [address] [place] [address] Social History Tobacco Use Types Packs/Day Years [...] Contact Info) Description 12/06/2024 6:45 EST Treatment [facility] [place] [id number] Carlota Jin MD 1 [facility], Level [address] [place] [phone] 12/08/2024 6:45 EST Treatment [facility] D[facility] - [place] [address] [place], [place] [address] Carlota Jin MD 1 [facility] 2 [place] [phone] 12/11/2024 6:45 EST Treatment [facility] D[facility]ys[facility] - [place] [address] [place], [place] [id number] Carlota Jin MD 1 [facility], [facility] 2 [place] [phone] 12/13/2024 6:45 EST Treatment [facility] - [place] [address] [place], [place] [id number] Carlota Jin MD 1 [facility], [facility] 2 [place] [phone] 12/15/2024 6:45 EST Treatment [facility] - [place] [address] [place], [place] [id number] Carlota Jin MD 1 [facility], [address] [phone] 12/18/2024 6:45 EST Treatment [facility] Dialysi [facility] [address] [place], [place] [id number] Carlota Jin MD 1 [facility], [facility] 2 [place] [phone] 12/20/2024 6:45 EST Treatment [facility] D[facility]i [facility] [address] [place], [place] [id number] Carlota Jin MD 1 [facility], [facility] 2 [place] [phone] 12/22/2024 6:45 EST Treatment [facility] - [place] [address] [place], [place] [id number] Carlota Jin MD 1 [facility], [facility] 2 [place] [phone] 12/25/2024 6:45 EST Treatment [facility] D[facility] - [place] [address] [place], [place] [id number] Carlota Jin MD 1 [facility], [facility] 2 [place] [phone] 12/27/2024 6:45 EST Treatment [facility] Dialysi - [place] [address] [place], [place] [id number] Carlota Jin MD 1 [facility], [facility] 2 [place] [phone] 12/29/2024 6:45 EST Treatment [facility] [address] [place], [place] [id number] Carlota Jin MD 1 [facility], [facility] 2 [place] [phone] 01/01/2025 6:45 EDT Treatment [facility] Dialysi [facility] [address] [place], [place] [id number] Carlota Jin MD 1 [facility], [facility] 2 [place] [phone] 01/03/2025 6:45 EDT Treatment [facility] - [place] [address] [place], [place] [address] Carlota Jin MD 1 [facility], [facility] 2 [place] [phone] 01/05/2025 6:45 EDT Treatment [facility] - [place] [address] [place], [place] [id number] Carlota Jin MD 1 [facility], [facility] 2 [place] [phone] 01/08/2025 6:45 EDT Treatment [facility] - [place] [address] [place], [place] [id number] Carlota Jin MD 1 [facility], [facility] 2 [place] [phone] 01/10/2025 6:45 EDT Treatment [facility] - [place] [address] [place], [place] [id number] Carlota Jin MD 1 [facility], [facility] 2 [place] [phone] 01/12/2025 6:45 EDT Treatment [facility] - [place] [address] [place], [place] [id number] Carlota Jin MD 1 [facility], [facility] 2 [place] [phone] 01/15/2025 6:45 EDT Treatment [facility] Dialysi - [place] [address] [place], [place] [id number] Carlota Jin MD 1 [facility], [facility] 2 [place] [phone] 01/17/2025 6:45 EDT Treatment [facility] Dialysi - [place] [address] [place], [place] [id number] Carlota Jin MD 1 [facility], [facility] 2 [place] [phone] 01/19/2025 6:45 EDT Treatment [facility] - [place] [address] [place], [place] [id number] Carlota Jin MD 1 [facility], [facility] 2 [place] [phone] 01/22/2025 6:45 EDT Treatment [facility] - [place] [address] [place], [place] [id number] Carlota Jin MD 1 [facility], [facility] 2 [place] [phone] 01/24/2025 6:45 EDT Treatment [facility] - [place] [address] [place], [place] [id number] Carlota Jin MD 1 [facility], [facility] 2 [place] [phone] 01/26/2025 6:45 EDT Treatment [facility] - [place] [address] [place], [place] [id number] Carlota Jin MD 1 [facility], [facility] 2 [place] [phone] 01/29/2025 6:45 EDT Treatment [facility] - [place] [address] [place], [place] [id number] Carlota Jin MD 1 [facility], [facility] 2 [place] [phone] 01/31/2025 6:45 EDT Treatment [facility] - [place] [address] [place], [place] [id number] Carlota Jin MD [address] [place] [address], [facility] 2 [place] [phone] 02/02/2025 6:45 EDT Treatment [facility] Dialysi - [place] [address] [place], [place] [id number] Carlota Jin MD [address] [place] [address], [address] [phone] 02/05/2025 6:45 EDT Treatment [facility] D[place] - [place] [address] [place], [place] [id number] Carlota Jin MD 1 [facility], [facility] 2 [place] [phone] 02/07/2025 6:45 EDT Treatment [facility] - [place] [address] [place], [place] [id number] Carlota Jin MD 1 [facility], [facility] 2 [place] [phone] 02/09/2025 6:45 EDT Treatment [facility] D[place]ys[facility] - [place] [address] [place], [place] [id number] Carlota Jin MD 1 [facility], [facility] 2 [place] [phone] 02/12/2025 6:45 EDT Treatment [facility] - [place] [address] [place], [place] [id number] Carlota Jin MD 1 [facility], [facility] 2 [place] [phone] 02/14/2025 6:45 EDT Treatment [facility] Dialysi - [place] [address] [place], [place] [id number] Carlota Jin MD 1 [facility], [facility] 2 [place] [phone] 02/16/2025 6:45 EDT Treatment [facility] - [place] [address] [place] [address] Carlota Jin MD 1 [facility], [facility] 2 [place] [phone] 02/19/2025 6:45 EDT Treatment [facility] - [place] [address] [place] [address] Carlota Jin MD 1 [facility], [facility] 2 [place] [phone] 02/21/2025 6:45 EDT Treatment [facility] - [place] [address] [place], [place] [id number] Carlota Jin MD 1 [facility], [facility] 2 [place] [phone] documented as of this encounter Visit Diagnoses Not on filedocumented in this encounter Care Teams Body Stylist Relationship Specialty Start Date End Date Ken Greer MD [address] [facility] [place] [address] PCP - General 07/07/23 documented as of this encounter
--- OUTSIDE RECORDS SUMMARY | 2024-12-05 12:18 | XMS_ITS | Encounter Summary ---
Author Organization [facility] Address [address] [place] [address] Care Team Providers Care Poultry Cleaner Name Role Phone Ken Greer MD Primary Care Provider [phone] Encounter Details Date Type Department Care Team (Late st Contact Info) Description 09/01/2023 Documentation Visit [facility] [address] [place] [address] Skye Gomez, MUKESH 1 [facility], Level [address] [place] [address] Social History Tobacco Use Types [...] on file documented as of this encounter Ordered Prescriptions Prescription Sig Dispense Quantity Refills Last Filled Start Date End Date sodium zirconium cyclosilicate (LOKELMA) 5 gram powder in packet Take 5 g by mouth daily. Non Non-dialysi s days 30 Packet 2 09/01/2023 09/10/2023 sodium zirconium cyclosilicate (LOKELMA) 5 gram powder in packet Take 5 g by mouth daily. Non Non-dialysi s days 30 Packet 2 09/01/2023 09/01/2023 documented in this encounter Plan of Treatment Upcoming Encounters Date Type Department Care Team (Late st Contact Info) Description 12/06/2024 6:45 EST Treatment [facility] Dialysi - [place] [address] [place], [place] [id number] Carlota Jin MD 1 [facility], [facility] 2 [place] [phone] 12/08/2024 6:45 EST Treatment [facility] Dialysi - [place] [address] [place], [place] [id number] Carlota Jin MD 1 [facility], [facility] 2 [place] [phone] 12/11/2024 6:45 EST Treatment [facility] D[place]ys[place] - [place] [address] [place], [place] [id number] Carlota Jin MD 1 [facility], [address] [phone] 12/13/2024 6:45 EST Treatment [facility] [place] [address] [place], [place] [id number] Carlota Jin MD 1 [facility], [facility] 2 [place] [phone] 12/15/2024 6:45 EST Treatment [facility] Dial[facility] [place] [address] [place], [place] [id number] Carlota Jin MD 1 [facility], [facility] 2 [place] [phone] 12/18/2024 6:45 EST Treatment [facility] Dialysi - [place] [address] [place], [place] [id number] Carlota Jin MD 1 [facility] 2 [place] [phone] 12/20/2024 6:45 EST Treatment [facility] D[place]ys[facility] - [place] [address] [place], [place] [id number] Carlota Jin MD 1 [facility], [facility] 2 [place] [phone] 12/22/2024 6:45 EST Treatment [facility] D[place] - [place] [address] [place], [place] [id number] Carlota Jin MD 1 [facility], [facility] 2 [place] [phone] 12/25/2024 6:45 EST Treatment [facility] D[place]ys[facility] - [place] [address] [place], [place] [id number] Carlota Jin MD 1 [facility], [facility] 2 [place] [phone] 12/27/2024 6:45 EST Treatment [facility] Dialysi [facility] [address] [place], [place] [id number] Carlota Jin MD 1 [facility], [facility] 2 [place] [phone] 12/29/2024 6:45 EST Treatment [facility] Dialysi [place] [address] [place], [place] [id number] Carlota Jin MD 1 [facility], [facility] 2 [place] [phone] 01/01/2025 6:45 EDT Treatment [facility] D[place]ys[facility] - [place] [address] [place], [place] [id number] Carlota Jin MD 1 [facility], [facility] 2 [place] [phone] 01/03/2025 6:45 EDT Treatment [facility] Dialysi - [place] [address] [place], [place] [id number] Carlota Jin MD 1 [facility], [facility] 2 [place] [phone] 01/05/2025 6:45 EDT Treatment [facility] Dialysi - [place] [address] [place], [place] [id number] Carlota Jin MD 1 [facility], [facility] 2 [place] [phone] 01/08/2025 6:45 EDT Treatment [facility] - [place] [address] [place] [address] Carlota Jin MD 1 [facility], [facility] 2 [place] [phone] 01/10/2025 6:45 EDT Treatment [facility] [address] [place], [place] [id number] Carlota Jin MD 1 [facility], [facility] 2 [place] [phone] 01/12/2025 6:45 EDT Treatment [facility] D[place]ys[facility] - [place] [address] [place], [place] [id number] Carlota Jin MD 1 [facility], [facility] 2 [place] [phone] 01/15/2025 6:45 EDT Treatment [facility] D[place]ys[facility] - [place] [address] [place], [place] [id number] Carlota Jin MD [address] [place] [address], [address] [phone] 01/17/2025 6:45 EDT Treatment [facility] Dialysi - [place] [address] [place], [place] [id number] Carlota Jin MD [address] [place] [address], [address] [phone] 01/19/2025 6:45 EDT Treatment [facility] D[place]ys[facility] - [place] [address] [place], [place] [id number] Carlota Jin MD [address] [place] [address], [facility] [address] [place] [phone] 01/22/2025 6:45 EDT Treatment [facility] Dialysi - [place] [address] [place], [place] [id number] Carlota Jin MD 1 [facility], [facility] 2 [place] [phone] 01/24/2025 6:45 EDT Treatment [facility] Dialysi - [place] [address] [place], [place] [id number] Carlota Jin MD 1 [facility], [facility] 2 [place] [phone] 01/26/2025 6:45 EDT Treatment [facility] D[place]ys[facility] - [place] [address] [place], [place] [id number] Carlota Jin MD 1 [facility], [facility] 2 [place] [phone] 01/29/2025 6:45 EDT Treatment [facility] Dialysi - [place] [address] [place], [place] [id number] Carlota Jin MD 1 [facility], [facility] 2 [place] [phone] 01/31/2025 6:45 EDT Treatment [facility] - [place] [address] [place] [address] Carlota Jin MD 1 [facility], [facility] 2 [place] [phone] 02/02/2025 6:45 EDT Treatment [facility] D[facility]ysi - [place] [address] [place] [address] Carlota Jin MD 1 [facility], [facility] 2 [place] [phone] 02/05/2025 6:45 EDT Treatment [facility] Dialysi - [place] [address] [place], [place] [id number] Carlota Jin MD 1 [facility], [facility] 2 [place] [phone] 02/07/2025 6:45 EDT Treatment [facility] Dialysi - [place] [address] [place], [place] [id number] Carlota Jin MD 1 [facility], [facility] 2 [place] [phone] 02/09/2025 6:45 EDT Treatment [facility] Dialysi - [place] [address] [place], [place] [id number] Carlota Jin MD 1 [facility], [facility] 2 [place] [phone] 02/12/2025 6:45 EDT Treatment [facility]ysi - [place] [address] [place] [address] Carlota Jin MD [address] [place] [address], [address] [phone] 02/14/2025 6:45 EDT Treatment [facility] Dialysi - [place] [address] [place], [place] [id number] Carlota Jin MD 1 [facility], [facility] 2 [place] [phone] 02/16/2025 6:45 EDT Treatment [facility] Dialysi - [place] [address] [place], [place] [id number] Carlota Jin MD 1 [facility], [facility] 2 [place] [phone] 02/19/2025 6:45 EDT Treatment [facility] Dialysi - [place] [address] [place], [place] 304455 Carlota Jin MD 1 [facility], Level [address] [place] [address] 02/21/2025 6:45 EDT Treatment [facility] Dialysi - [place] [address] [place], [place] [id number] Carlota Jin MD 1 [facility] Level [address] [place] [address] documented as of this encounter Visit Diagnoses Not on filedocumented in this encounter Discontinued Medications Medication Sig Discontinue Reason Start Date End Da te sodium zirconium cyclosilicate (LOKELMA) 5 gram powder in packet Take 5 g by mouth daily. Non Non-dialysis days Reorder 09/01/2023 09/01/2023 sodium zirconium cyclosilicate (LOKELMA) 5 gram powder in packet Take 5 g by mouth daily. Non Non-dialysis days Reorder 09/01/2023 09/01/2023 documented as of this encounter Care Teams Poultry Cleaner Relationship Specialty Start Date End Date Ken Greer MD [facility] [place] [address] PCP - General 07/07/23 documented as of this encounter
--- OUTSIDE RECORDS SUMMARY | 2024-12-05 12:18 | XMS_ITS | Encounter Summary ---
Author Organization [facility] Address [address] [place] [address] Care Team Providers Care Rcis Name Role Phone Ken Greer MD Primary Care Provider [phone] Encounter Details Date Type Department Care Team (Latest Contact Info) Description 09/08/2023 6:45 EST Treatment [facility] [address] [place], [place] [id number] Carlota Jin MD 1 [facility], Level [address] [place] [address] ESRD (end stage renal disease) ([facility]) (Primary Dx); Anemia of chronic renal failure, unspecified CKD stage; Hypoalbuminemia; Secondary hyperparathyroidism ([facility]); Encounter for immunization Social History Tobacco Use [...] - Temperature - - Respiratory Rate 16 09/08/2023 0632 EST Oxygen Saturation - - Inhaled Oxygen Concentration - - Weight 89.5 kg (197 lb 5 oz) 09/08/2023 0632 EST Height - - Body Mass Index 29.14 07/08/2023 0839 EDT documented in this encounter Miscellaneous Notes * Flowsheet Note - Marcela Cox RN - 09/08/2023 1122 EST 09/08/23 1112 Post-Hemodialysis Assessment Total Blood Processed (L) 90.04 Liters On Line Clearance: spKt/V 1.44 spKt/V Dialyzer Clearance Lightly streaked Treatment UFR (ml:kg:hr) 8.17 ml:kg:hr Critline refill Not done Fluid Removed (L) 3 L Post-Dialysis Scale Weight 86.6 kg (190 lb 14.7 oz) Wheelchair Weight 0 kg (0 lb) Prosthesis Weight 0 kg (0 lb) Post-Treatment Weight (kg) 86.6 Treatment Weight Change (kg) 2.9 kg Day Target Weight (kg) 87 Post Sitting/Lying BP 172/83 Post Sitting/Lying pulse 64 Post Standing BP 135/76 Post Standing Pulse 70 Temp 36.5 ??C (97.7 ??F) Temp [...] Contact Info) Description 12/06/2024 6:45 EST Treatment [facility] [place] [address] [place], [place] [id number] Carlota Jin MD 1 [facility], Level [address] [place] [address] 12/08/2024 6:45 EST Treatment [facility] [place] [address] [place], [place] [address] Carlota Jin MD 1 [facility], [facility] 2 [place] [phone] 12/11/2024 6:45 EST Treatment [facility] [place] [address] [place], [place] [id number] Carlota Jin MD 1 [facility], [facility] 2 [place] [phone] 12/13/2024 6:45 EST Treatment [facility] [place] [address] [place], [place] [id number] Carlota Jin MD 1 [facility], [facility] 2 [place] [phone] 12/15/2024 6:45 EST Treatment [facility] [place] [address] [place], [place] [id number] Carlota Jin MD 1 [facility], [address] [phone] 12/18/2024 6:45 EST Treatment [facility] [place] [address] [place], [place] [id number] Carlota Jin MD 1 [facility], [facility] 2 [place] [phone] 12/20/2024 6:45 EST Treatment [facility] [place] [address] [place], [place] [id number] Carlota Jin MD 1 [facility], [facility] 2 [place] [phone] 12/22/2024 6:45 EST Treatment [facility] [place] [address] [place], [place] [id number] Carlota Jin MD 1 [facility], [facility] 2 [place] [phone] 12/25/2024 6:45 EST Treatment [facility] [place] [address] [place], [place] [id number] Carlota Jin MD 1 [facility], [facility] 2 [place] [phone] 12/27/2024 6:45 EST Treatment [facility] [place] [address] [place], [place] [address] [phone] Carlota Jin MD 1 [facility], [facility] 2 [place] [phone] 12/29/2024 6:45 EST Treatment [facility] [place] [address] [place] [address] Carlota Jin MD 1 [facility], [facility] 2 [place] [phone] 01/01/2025 6:45 EDT Treatment [facility] [place] [address] [place], [place] [id number] Carlota Jin MD 1 [facility], [facility] 2 [place] [phone] 01/03/2025 6:45 EDT Treatment [facility] [place] [address] [place], [place] [address] Carlota Jin MD 1 [facility], [address] [phone] 01/05/2025 6:45 EDT Treatment [facility] [place] [address] [place] [address] Carlota Jin MD 1 [facility], [address] [phone] 01/08/2025 6:45 EDT Treatment [facility] [place] [address] [place], [place] [id number] Carlota Jin MD 1 [facility], [address] [phone] 01/10/2025 6:45 EDT Treatment [facility] [place] [address] [place], [place] [id number] Carlota Jin MD 1 [facility], [address] [phone] 01/12/2025 6:45 EDT Treatment [facility] [place] [address] [place], [place] [id number] Carlota Jin MD [address] [phone] 01/15/2025 6:45 EDT Treatment [facility] [place] [address] [place], [place] [id number] Carlota Jin MD 1 [facility], [facility] 2 [place] [phone] 01/17/2025 6:45 EDT Treatment [facility] [place] [address] [place], [place] [id number] Carlota Jin MD 1 [facility], [facility] 2 [place] [phone] 01/19/2025 6:45 EDT Treatment [facility] [place] [address] [place], [place] [id number] Carlota Jin MD 1 [facility], [facility] 2 [place] [phone] 01/22/2025 6:45 EDT Treatment [facility] [place] [address] [place], [place] [id number] Carlota Jin MD [address] [place] [address], [address] [phone] 01/24/2025 6:45 EDT Treatment [facility] [place] [address] [place], [place] [id number] Carlota Jin MD 1 [facility], [facility] 2 [place] [phone] 01/26/2025 6:45 EDT Treatment [facility] [place] [address] [place], [place] [id number] Carlota Jin MD 1 [facility], [facility] 2 [place] [phone] 01/29/2025 6:45 EDT Treatment [facility] [place] [address] [place], [place] [id number] Carlota Jin MD 1 [facility], [facility] 2 [place] [phone] 01/31/2025 6:45 EDT Treatment [facility] [place] [address] [place], [place] [id number] Carlota Jin MD 1 [facility], [address] [phone] 02/02/2025 6:45 EDT Treatment [facility] [place] [address] [place], [place] [id number] Carlota Jin MD 1 [facility], [address] [phone] 02/05/2025 6:45 EDT Treatment [facility] [place] [address] [place], [place] [id number] Carlota Jin MD 1 [facility], [address] [phone] 02/07/2025 6:45 EDT Treatment [facility] [place] [address] [place], [place] [address] Carlota Jin MD 1 [facility], [facility] 2 [place] [phone] 02/09/2025 6:45 EDT Treatment [facility] [place] [address] [place], [place] [id number] Carlota Jin MD 1 [facility], [facility] 2 [place] [phone] 02/12/2025 6:45 EDT Treatment [facility] [place] [address] [place], [place] [address] Carlota Jin MD 1 [facility], [facility] 2 [place] [phone] 02/14/2025 6:45 EDT Treatment [facility] [place] [address] [place], [place] [id number] Carlota Jin MD 1 [facility], [facility] 2 [place] [phone] 02/16/2025 6:45 EDT Treatment [facility] [place] [address] [place], [place] [address] Carlota Jin MD 1 [facility], [facility] 2 [place] [phone] 02/19/2025 6:45 EDT Treatment [facility] [place] [address] [place] [address] Carlota Jin MD 1 [facility], [facility] 2 [place] [phone] 02/21/2025 6:45 EDT Treatment [facility] [place] [address] [place], [place] [address] Carlota Jin MD 1 [facility], [facility] 2 [place] [phone] documented as of this encounter Procedures Procedure Name Priority Date/Time Associated Diagnosis Comments COMPLETE BLOOD COUNT Routine 09/08/2023 6:35 EST ESRD (end stage renal disease) ([facility]) HEMODIALYSIS Routine 09/08/2023 6:32 EST ESRD (end stage renal disease) ([facility]) documented in this encounter Results * (ABNORMAL) COMPLETE BLOOD COUNT (09/08/2023 6:35 EST) WBC 7.37 4.00 - 10.40 K/cmm 09/08/2023 21:55 [facility] RBC 3.37(L) 4.36 - 5.78 M/cmm 09/08/2023 21:55 [facility] Hemoglobin 10.7(L) 13.8 - 17.3 g/dL 09/08/2023 21:55 [facility] HCT 32.0(L) 39.5 - 50.2 % 09/08/2023 21:55 [facility] MCV 95 81 - 95 fL 09/08/2023 21:55 [facility] MCH 31.8 27.6 - 33.0 pg 09/08/2023 21:55 [facility] MCHC 33.4 32.8 - 36.4 g/dL 09/08/2023 21:55 [facility] RDW-CV 12.2 <14.2 % 09/08/2023 21:55 [facility] RDW-SD 42.3 <46.0 fl 09/08/2023 21:55 [facility] PLT 260 141 - 377 K/cmm 09/08/2023 21:55 [facility] MPV 11.9 9.5 - 12.7 fL 09/08/2023 21:55 [facility] Blood VENOUS BLOOD / Unknown Venipuncture / Unknown 09/08/2023 6:35 EST 09/08/2023 6:35 EST us Carlota Jin MD HEMATOLOGY & PF4 ORDERABL ES Final Result [facility] [address] [place] [address] documented in this encounter Visit Diagnoses Diagnosis ESRD (end stage renal disease) ([facility] Primary End stage renal disease Anemia of chronic renal failure, unspecified CKD stage Hypoalbuminemia Other disorders of plasma protein metabolism Secondary hyperparathyroidism ([facility]) Secondary hyperparathyroidism (of renal origin) Encounter for [...] oral, ONCE IN DIALYSIS, 1 dose, On Wed09/08/23 at 0700, Routine, DialysisIndications:ESRD (end stage renal disease) ([facility]),Secondary hyperparathyroidism ([facility]) Given 09/08/2023 7:15 EST 2 Tablets epoetin ken (EPOGEN) 20,000 unit/2 mL injection 1,500 Units 1,500 Units, intravenous, ONCE IN DIALYSIS, 1 dose, On Wed09/08/23 at 0700, Routine, DialysisIndications:ESRD (end stage renal disease) ([facility]),Anemia of chronic renal failure, unspecified CKD stage Given 09/08/2023 7:15 EST 1,500 Units heparin injection 9,000 Units 9,000 Units, intravenous, ONCE IN DIALYSIS, 1 dose, On Wed09/08/23 at 0700, Routine, Dialysis, Now x1 bolus 4500 units to be given at the beginning of dialysis 1500 units/hour to be given over the course of dialysis (9000 units total). Stop 1 hour prior to end of treatment. To be administered per Policy [id number].Indications:ESRD (end stage renal disease) ([facility]) Given 09/08/2023 7:15 EST 9,000 Units iron sucrose (VENOFER) injection 200 mg 200 mg, intravenous, ONCE IN DIALYSIS, 1 dose, On Wed09/08/23 at 0700, Routine, DialysisIndications:Hypoalbuminem ia,Encounter for immunization,ESRD (end stage renal disease) ([facility]) Given 09/08/2023 7:15 EST 200 mg LiquaCel liquid protein liquid 30 mL 30 mL, oral, ONCE IN DIALYSIS, 1 dose, On 09/08/23 at 0700, RoutineIndications:Hypoalbuminemi a,ESRD (end stage renal disease) ([facility]) Given 09/08/2023 7:15 EST 30 mL documented in this encounter Orders Dialysis Count Last Ordered Date First Orde red Date HEMODIALYSIS 1 09/08/2023 documented in this encounter Care Teams Rcis Relationship Specialty Start Date End Date Ken Greer MD [facility] [place] [address] PCP - General 07/07/23 documented as of this encounter
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
--- OUTSIDE RECORDS SUMMARY | 2024-12-05 12:18 | XMS_ITS | Encounter Summary ---
Author Organization [facility] Address [address] [place] [address] Care Team Providers Care Plant Associate Name Role Phone Ken Greer MD Primary Care Provider [phone] Encounter Details Date Type Department Care Team (Late st Contact Info) Description 09/10/2023 Orders Only [facility] [address] [place] [address] Skye Gomez NP 1 [facility], Level [address] [place] [address] Social History Tobacco Use Types [...] Progress Notes * Skye Gomez NP - 09/10/2023 1113 EST Lokelma too expensive for the PT $200 for 30 days Veltassa $265 for 30 day supply documented in this encounter Plan of Treatment Upcoming Encounters Date Type Department Care Team (Late st Contact Info) Description 12/06/2024 6:45 EST Treatment [facility] [place] [address] [place], [place] [id number] Carlota Jin MD 1 [facility], [facility] [address] [place] [phone] 12/08/2024 6:45 EST Treatment [facility] - [place] [address] [place], [place] [id number] Carlota Jin MD 1 [facility], [address] [phone] 12/11/2024 6:45 EST Treatment [facility] [place] [address] [place], [place] [id number] Carlota Jin MD 1 [facility], [address] [phone] 12/13/2024 6:45 EST Treatment [facility] [place] [address] [place], [place] [id number] Carlota Jin MD 1 [facility], [facility] [address] [place] [phone] 12/15/2024 6:45 EST Treatment [facility] [place] [address] [place], [place] [id number] Carlota Jin MD 1 [facility], [facility] [address] [place] [phone] 12/18/2024 6:45 EST Treatment [facility] - [place] [address] [place], [place] [id number] Carlota Jin MD 1 [facility], [facility] [address] [place] [phone] 12/20/2024 6:45 EST Treatment [facility] - [place] [address] [place], [place] [id number] Carlota Jin MD 1 [facility], [facility] [address] [place] [phone] 12/22/2024 6:45 EST Treatment [facility] [place] [address] [place], [place] [id number] Carlota Jin MD 1 [facility], [facility] [address] [place] [phone] 12/25/2024 6:45 EST Treatment [facility] - [place] [address] [place], [place] [id number] Carlota Jin MD 1 [facility], [facility] [address] [place] [phone] 12/27/2024 6:45 EST Treatment [facility] - [place] [address] [place], [place] [id number] Carlota Jin MD 1 [facility], [facility] [address] [place] [phone] 12/29/2024 6:45 EST Treatment [facility] - [place] [address] [place], [place] [id number] Carlota Jin MD 1 [facility], [facility] [address] [place] [phone] 01/01/2025 6:45 EDT Treatment [facility] [place] [address] [place], [place] [id number] Carlota Jin MD 1 [facility], [facility] [address] [place] [phone] 01/03/2025 6:45 EDT Treatment [facility] - [place] [address] [place], [place] [id number] Carlota Jin MD 1 [facility], [facility] [address] [place] [phone] 01/05/2025 6:45 EDT Treatment [facility] - [place] [address] [place], [place] [id number] Carlota Jin MD 1 [facility], [address] [phone] 01/08/2025 6:45 EDT Treatment [facility] - [place] [address] [place], [place] [id number] Carlota Jin MD 1 [facility], [facility] [address] [place] [phone] 01/10/2025 6:45 EDT Treatment [facility] - [place] [address] [place], [place] [id number] Carlota Jin MD 1 [facility], [facility] [address] [place] [address] 01/12/2025 6:45 EDT Treatment [facility] - [place] [address] [place], [place] [id number] Carlota Jin MD 1 [facility], [facility] [address] [place] [phone] 01/15/2025 6:45 EDT Treatment [facility] - [place] [address] [place], [place] [id number] Carlota Jin MD 1 [facility], [address] [phone] 01/17/2025 6:45 EDT Treatment [facility] - [place] [address] [place], [place] [id number] Carlota Jin MD 1 [facility], [address] [phone] 01/19/2025 6:45 EDT Treatment [facility] - [place] [address] [place], [place] [id number] Carlota Jin MD 1 [facility], [address] [phone] 01/22/2025 6:45 EDT Treatment [facility] - [place] [address] [place], [place] [id number] Carlota Jin MD 1 [facility], [facility] [address] [place] [phone] 01/24/2025 6:45 EDT Treatment [facility] - [place] [address] [place], [place] [id number] Carlota Jin MD 1 [facility], [facility] [address] [place] [phone] 01/26/2025 6:45 EDT Treatment [facility] [place] [address] [place], [place] [id number] Carlota Jin MD 1 [facility], [facility] [address] [place] [phone] 01/29/2025 6:45 EDT Treatment [facility] [place] [address] [place], [place] [id number] Carlota Jin MD 1 [facility], [facility] [address] [place] [phone] 01/31/2025 6:45 EDT Treatment [facility] [place] [address] [place] [address] Carlota Jin MD 1 [facility], [address] [phone] 02/02/2025 6:45 EDT Treatment [facility] - [place] [address] [place], [place] [id number] Carlota Jin MD 1 [facility], [facility] [address] [place] [phone] 02/05/2025 6:45 EDT Treatment [facility] [place] [address] [place], [place] [id number] Carlota Jin MD 1 [facility], [facility] [address] [place] [phone] 02/07/2025 6:45 EDT Treatment [facility] - [place] [address] [place], [place] [id number] Carlota Jin MD 1 [facility], [facility] [address] [place] [phone] 02/09/2025 6:45 EDT Treatment [facility] - [place] [address] [place], [place] [id number] Carlota Jin MD 1 [facility], [facility] [address] [place] [phone] 02/12/2025 6:45 EDT Treatment [facility] - [place] [address] [place] [address] Carlota Jin MD 1 [facility], [address] [phone] 02/14/2025 6:45 EDT Treatment [facility] - [place] [address] [place], [place] [id number] Carlota Jin MD [address] [phone] 02/16/2025 6:45 EDT Treatment [facility] - [place] [address] [place], [place] [id number] Carlota Jin MD [address] [phone] 02/19/2025 6:45 EDT Treatment [facility] - [place] [address] [place], [place] [id number] Carlota Jin MD 1 [facility] [address] [place] [phone] 02/21/2025 6:45 EDT Treatment [facility] - [place] [address] [place], [place] [id number] Carlota Jin MD 1 [facility], Level [address] [place] [address] documented as of this encounter Visit Diagnoses Not on filedocumented in this encounter Discontinued Medications Medication Sig Discontinue Reason Start Date End Da te sodium zirconium cyclosilicate (LOKELMA) 5 gram powder in packet Take 5 g by mouth daily. Non Non-dialysis days Cost of medication 09/01/2023 09/10/2023 documented as of this encounter Care Teams Plant Associate Relationship Specialty Start Date End Date Ken Greer MD [facility] [place] [address] PCP - General 07/07/23 documented as of this encounter
--- OUTSIDE RECORDS SUMMARY | 2024-12-05 12:18 | XMS_ITS | Encounter Summary ---
Author Organization [facility] Address [address] [place] [address] Care Team Providers Care Carton Wrapper Name Role Phone Ken Greer MD Primary Care Provider [phone] Encounter Details Date Type Department Care Team (Latest Contact Info) Description 09/06/2023 6:45 EST Treatment [facility] [address] [place], [place] [phone] Carlota Jin MD 1 [facility], Level [address] [place] [address] ESRD (end stage renal disease) ([facility]) (Primary Dx); Anemia of chronic renal failure, unspecified CKD stage; Hypoalbuminemia; Secondary hyperparathyroidism ([facility]); Encounter for immunization Social History Tobacco Use [...] - Temperature - - Respiratory Rate 16 09/06/2023 0625 EST Oxygen Saturation - - Inhaled Oxygen Concentration - - Weight 90 kg (198 lb 6.6 oz) 09/06/2023 0625 EST Height - - Body Mass Index 29.3 07/08/2023 0839 EDT documented in this encounter Miscellaneous Notes * Flowsheet Note - Melissa Crespo RN - 09/06/2023 1210 EST 09/06/23 1113 Post-Hemodialysis Assessment Total Blood Processed (L) 39.65 Liters Dialyzer Clearance Lightly streaked Treatment UFR (ml:kg:hr) 9.07 ml:kg:hr Critline refill Not done Fluid Removed (L) 1.6 L Post-Dialysis Scale Weight 87.8 kg (193 lb 9 oz) Post Weight Estimated? Estimated (Pt's chart closed mid tx and does not reflect full amount removed during session. Pt removed closeto 3500cc today.) Wheelchair Weight 0 kg (0 lb) Prosthesis Weight 1 kg (2 lb 3.3 oz) Post-Treatment Weight (kg) 86.8 Treatment Weight Change (kg) 3.2 kg Day Target Weight (kg) 87 Post Sitting/Lying BP 115/55 Post Sitting/Lying pulse 63 Post Standing BP 118/59 Post Standing Pulse 67 Temp 36.5 ??C (97.7 ??F) Temp src Temporal Post access assessment AVF/AFG Hemostasis achieved Yes Orientation Alert and Oriented x3 Yes Time Yes Place Yes Person Yes Cooperative Yes Disoriented No Discharge Ambulation Methods Ambulatory with assistive device Ambulation device Other (Comment) (walking stick) Wrap up items Patient Response to Treatment Pt's chart closed mid tx and does not reflect full amount removed during session. Pt removed close to 3500cc today. Comments Stable upon DC from unit. * Dialysis Comprehensive - Carlota Jin MD - 09/06/2023 0645 EST Images from the original note were not included. Dialysis Provider's Monthly Comprehensive Assessment Dialysis Unit: [facility] ESRD Etiology: Type 2 diabetes mellitus with diabetic chronic kidney disease ([facility]) Patient Active Problem List Diagnosis ??? 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 ESRD (end stage renal disease) ([facility]) ??? Essential (primary) hypertension ??? Hearing loss ??? Herniation of lumbar intervertebral disc with radiculopathy ??? Hyperlipidemia ??? Proteinuria ??? Right sided numbness ??? Secondary hyperparathyroidism ([facility]) ??? TIA (transient ischemic attack) ??? Type II or unspecified type diabetes mellitus with neurological manifestations, uncontrolled(250.62) ??? Encounter for immunization ??? Hypoalbuminemia ??? Anemia of chronic renal failure ??? Abnormal albumin Treatment Modality: Patient received information regarding treatment options: No Patient is interested in pursuing a different modality: No Patient is a home dialysis candidate: No Patient Treatment Choice: Hemodialysis, Incenter Plan: Continue current modality. Current smoker; not current eligible for transplant referral Transplantation: Patient Had Prior Transplant: No 12/16/2022 12:29 Transplant Status Referral Status Declines Meets Criteria at Center? No Info Sent? No Workup in Progress? No Transplant Candidate? No On Active Transplant List? No Listing On-Hold? No Comments Patient does not meet transplant criteria due to daily smoking cigarettes Current Dialysis Prescription: Hemodialysis Therapy Plan In-Center Hemodialysis 3 times a week Prescribed Weight (Kg): 87 Treatments Per Week: 3 Dialyzer: OPTIFLUX 200NR [...] Sign Review Prescribed Weight: Prescribed Weight (Kg): 87 I reviewed the patient's volume status with Nursing: Yes Average Interdialytic Fluid Gains: 09/01/2023 6:35 09/01/2023 11:26 09/03/2023 6:27 09/03/2023 6:37 09/03/2023 11:36 09/06/2023 6:25 09/06/2023 11:13 InterDialytic +/- Gain/Loss 1.5 1.5 1.5 3.6 Wt (pre) 89.1 88.1 88.1 90 Wt (post) 86.6 86.4 86.8 Treatment UFR (ml:kg:hr) 7.07 ml:kg:hr 4.82 ml:kg:hr 9.07 ml:kg:hr BP (pre) 134/74 143/84 143/84 130/70 BP (post) 199/99 193/98 193/98 168/77 Pulse (pre) 69 71 71 70 Pulse(post) 68 67 67 69 Resp (/min) 16 16 16 Volume and blood pressure have been addressed with the following changes: None Consistently able to achieve estimated dry weight? Yes Blood pressure is in range for patient? Yes Any adverse intradialytic symptoms? No Plan: Managed per protocol Physical Exam Constitutional Somnolent and groggy Respiratory: CTAB with mild expiratory wheeze, unlabored breathing Cardiac: Distant, RRR Abdomen: soft Extremities: No LE edema Hospitalization Hospitalization in Previous 3 Months: No Emergency Room Visit in Previous 3 Months: No Access Management Current LDAs: Hemodialysis Arteriovenous Access 02/13/19 (Active) AV Fistula Present 09/06/23650 Site Assessment Clean;Dry;Intact;Bruit heard;Thrill felt 09/06/23650 Current State Active 09/06/23650 Status Accessed 09/06/23650 Is Maturing N 09/06/23650 Local Anesthetic None 09/06/23650 Site Prep Chlorhexidine 09/06/23650 Venous Needle Size 15 G 09/06/23650 Arterial/Generic Needle Size 15 G 09/06/23650 Accessed by: Rhea 09/06/23650 Access Attempts 2 09/06/23650 Dressing Status/Care Clean/Dry/Intact 09/01/23 0701 Patient has AVF/AVG as primary access: Yes Patient has Catheter as primary access >90 days: No Home Medication Review/Update Current Outpatient Medications: ??? albuterol 90 mcg/actuation inhaler, , Disp: , Rfl: ??? amLODIPine (NORVASC) 10 mg tablet, Take 1 Tablet by mouth daily., Disp: , Rfl: ??? atorvastatin (LIPITOR) 40 mg tablet, Take 1 Tablet by mouth daily., Disp: , Rfl: ??? calcium carbonate (TUMS) 200 mg calcium (500 mg) tablet,chewable, Take 1 Tablet by mouth 3 times daily with meals., Disp: , Rfl: ??? carvediloL (COREG) 12.5 mg tablet, Take 1 Tablet by mouth 2 times daily., Disp: , Rfl: ??? cholecalciferol, Vitamin D3, 25 mcg (1,000 unit) tablet, Take 2 Tablets by mouth daily., Disp: 180 Tablet, Rfl: 3 ??? famotidine (PEPCID) 40 mg tablet, Take 1 Tablet by mouth daily., Disp: , Rfl: ??? FLOVENT HFA 110 mcg/actuation inhaler, Inhale 1 Puff as directed., Disp: , Rfl: ??? furosemide (LASIX) 20 mg tablet, Take 1 Tablet by mouth 2 times daily., Disp: , Rfl: ??? hydrOXYzine (ATARAX) 25 mg tablet, Take 1 Tablet by mouth at bedtime., Disp: , Rfl: ??? insulin lispro (HUMALOG KWIKPEN INSULIN) 100 unit/mL injectable pen, Inject 10-20 Units into the skin daily., Disp: , Rfl: ??? LEVEMIR FLEXPEN 100 unit/mL (3 mL) injectable pen, , Disp: , Rfl: ??? MULTIVITAMIN ORAL, Take by mouth., Disp: , Rfl: ??? nicotine (NICODERM CQ) 21 mg/24 hr patch, Place 1 Patch onto the skin daily., Disp: , Rfl: ??? olmesartan (BENICAR) 5 mg tablet, TAKE ONE TABLET BY MOUTH EVERY DAY STOP HCTZ, Disp: , Rfl: ??? pregabalin (LYRICA) 150 mg capsule, TAKE ONE CAPSULE BY MOUTH TWICE A DAY, MAXIMUM DAILY DOSE =2 CAPSULES, Disp: , Rfl: ??? sevelamer hydrochloride (RENAGEL) 800 mg tablet, Take 2 Tablets by mouth 3 times daily. (Patient taking differently: Take 2 Tablets by mouth 3 times daily. Pt reports he is now taking this.), Disp: 540 Tablet, Rfl: 3 ??? sildenafil citrate (VIAGRA) 100 mg tablet, Take 1 Tablet by mouth as needed for Erectile Dysfunction., Disp: , Rfl: ??? sodium zirconium cyclosilicate (LOKELMA) 5 gram powder in packet, Take 5 g by mouth daily. Non Non-dialysis days, Disp: 30 Packet, Rfl: 2 ??? TRULICITY 0.75 mg/0.5 mL subcutaneous pen, , Disp: , Rfl: Adjustment made to home medication: No Dialysis Medication Review Dialysis Plan Order Summary All Current Orders Interval Duration Due Hemodialysis Therapy Plan Dialysis Treatment In-Center Hemodialysis 3 times a week Week of 09/05/2023 Routine, ONE TIME Starting when released Prescribed Weight (Kg): 87 Treatments Per Week: 3 Dialyzer: OPTIFLUX 200NR Dialysate concentrate: Potassium 2 mEq/L Calcium 2.5 mEq/L Sodium NA+: Other Please specify: 136 Dialysate: Bicarb (mEq/L): 33 Dialysate Temperature (Centigrade): 36 BFR mL/min: 400 mL/min Dialysate Flow Rate (mL/min): 800 mL/min Duration of Treatment (hrs): 4 Hours Primary Access Site: AV Fistula Needle gauge: 15g 1 Dialysis - UF Profile: None Dialysis Last released: Wed09/06/2023 Oxygen Therapy (Age 3 yrs. to Adult) [...] released Until Discontinued, Pain, Dialysis Last released: Wed09/06/2023 diphenhydrAMINE (BENADRYL) capsule 25 mg PRN PRN [...] of treatment. To be administered per Policy [id number]. Last released: Wed09/06/2023 sodium chloride 0.9 % BOLUS 100 mL PRN PRN 100 mL, intravenous, PRN Starting when released Until Discontinued, Other, hypotension or cramping,Dialysis Last released: Never Dialysis Weekly Labs Complete Blood Count Weekly: Wed09/08/2023 Routine, ONE TIME Starting when released, Blood, Venous, Blood Results Release to Patient (Note: Choosing Manual Release will only block results from tests performed at [facility] and does not apply for Miscellaneous Test Order): Immediate via [facility] Dialysis Last released: Wed09/01/2023 Dialysis Monthly Labs Dialysis Iron (Includes Iron, IBC, and Ferritin) - Nephrology Use Only On the Wed of every 1 month Wed09/27/2023 Routine, ONE TIME Starting when released, Blood, Venous, Blood Results Release to Patient (Note: Choosing Manual Release will only block results from tests performed at [facility] and does not apply for Miscellaneous Test Order): Immediate via [facility] Dialysis Last released: Wed08/30/2023 Dialysis Routine- Dialysis Use Only On the Wed of every 1 month Wed09/27/2023 Routine, ONE TIME Starting when released, Blood, Blood, Venous Results Release to Patient (Note: Choosing Manual Release will only block results from tests performed at [facility] and does not apply for Miscellaneous Test Order): Immediate via [facility] Dialysis Last released: Wed08/30/2023 Postdialysis BUN with URR Calculation On the Wed of every 1 month Wed09/27/2023 Routine, ONE TIME Starting when released, Blood, Blood, Venous Results Release to Patient (Note: Choosing Manual Release will only block results from tests performed at [facility] and does not apply for Miscellaneous Test Order): Immediate via [facility] Dialysis Last released: Wed08/30/2023 Dialysis Quarterly Labs PTH Intact On the Wed of every 3 months Wed10/25/2023 Routine, ONE TIME Starting when released, Blood, Venous, Blood Results Release to Patient (Note: Choosing Manual Release will only block results from tests performed at [facility] and does not apply for Miscellaneous Test Order): Immediate via [facility] Last released: Wed07/26/2023 Dialysis Annual Labs - [place] [facility] Hepatitis- Dialysis Use Only On the Wed of every 12 months Wed10/25/2023 Routine, ONE TIME Starting when released, Blood, Blood, Venous Results Release to Patient (Note: Choosing Manual Release will only block results from tests performed at [facility] and does not apply for Miscellaneous Test Order): Immediate via [facility] D[facility] Last released: Never Folate On the 1st Mon of every 12 months Wed10/25/2023 Routine, ONE TIME Starting when released, Blood, Venous, Blood Results Release to Patient (Note: Choosing Manual Release will only block results from tests performed at [facility] and does not apply for Miscellaneous Test Order): Immediate via [facility] Portal Dialysis Last released: Never Vitamin B12 On the 1st Mon of every 12 months Wed10/25/2023 Routine, ONE TIME Starting when released, Blood, Venous, Blood Results Release to Patient (Note: Choosing Manual Release will only block results from tests performed at [facility] and does not apply for Miscellaneous Test Order): Immediate via [facility] Portal Dialysis Last released: Never Vitamin D (25,OH) On the Mon of every 12 months Wed10/25/2023 Routine, ONE TIME Starting when released, Blood, Venous, Blood Results Release to Patient (Note: Choosing Manual Release will only block results from tests performed at [facility] and does not apply for Miscellaneous Test Order): Immediate via [facility] Portal Dialysis Last released: Never Dialysis Annual Labs - April Hepatitis C Ab w Reflex to HCV RNA by PCR On the Mon of every 12 months Wed04/24/2024 Routine, ONE TIME Starting when released, Blood, Venous, Blood Results Release to Patient (Note: Choosing Manual Release will only block results from tests performed at [facility] and does not apply for Miscellaneous Test Order): Immediate via [facility] Portal Dialysis Last released: Wed04/26/2023 HEMODIALYSIS ANEMIA MEDS Medications epoetin ken (EPOGEN) 20,000 unit/2 mL injection 1,500 Units 3 times a week Week of 09/05/2023 1,500 Units, intravenous, ONCE IN DIALYSIS Starting when released, Dialysis Last released: Wed09/06/2023 iron sucrose (VENOFER) injection 200 mg 3 times a week 10/27 remaining Week of 09/05/2023 200 mg, intravenous, ONCE IN DIALYSIS Starting when released, Dialysis Last released: Wed09/06/2023 HEMODIALYSIS NUTRITIONAL SUPPLEMENTS Nutritional Supplements LiquaCel liquid protein liquid 30 mL Every visit Every visit 30 mL, oral, ONCE IN DIALYSIS Starting when released Last released: Wed09/06/2023 HEMODIALYSIS CKD MBD MEDS Medications calcium carbonate (TUMS) tablet 500 mg (200 mg elemental calcium) 2 Tablet Every visit Every visit 2 Tablet, oral, ONCE IN DIALYSIS Starting when released, Dialysis Last released: 09/06/2023 Adjustment made to dialysis medication: No Laboratory Results Dialysis Adequacy: spKt/V: 1.48 (Calculated from:; BUN Pre-Dialysis: 80 mg/dL at 08/30/2023 11:05; BUN Post-Dialysis: 23 mg/dL at 08/30/2023 11:05; Pre-Treatment Weight (kg): 91 at 08/30/2023 6:36; Post-Treatment Weight (kg): 87.6 at 08/30/2023 11:06; Duration of Treatment (minutes): 246 minutes at 08/30/2023 10:55) Plan: Continue current dialysis prescription Anemia Management: Lab Results Component Value Date WBC 9.98 09/01/2023 HGB 10.1 (L) 09/01/2023 HGB 9.6 (L) 08/25/2023 HGB 9.7 (L) 08/18/2023 PLT 228 09/01/2023 FOLATE 17.3 11/16/2022 [id number] 11/16/2022 FERRITIN 546 (H) 08/30/2023 Current GEORGE/Dose: HEMODIALYSIS ANEMIA MEDS epoetin ken [...] Component Value Date LABALBU 3.2 (L) 08/30/2023 ALKPHOS 101 08/30/2023 PHOS 8.2 (H) 08/30/2023 CALCIUM 8.3 (L) 08/30/2023 CALCCA 8.9 08/30/2023 PTH 484 (H) 07/26/2023 Vitamin D: cholecalciferol (Vitamin D3) - 25 mcg (1,000 unit) sevelamer hydrochloride - 800 mg This patient does not have an active medication from one of the medication groupers. Plan: Managed per protocol Potassium Management: Lab Results Component Value Date K 6.6 (H) 08/30/2023 Prescribed Potassium Concentrate: HEMODIALYSIS Ordered at: 09/06/23 0625 Dialysate concentrate: Potassium 2 mEq/L Calcium 2.5 mEq/L 09/06/2023 6:25 Last Dialysis Prescription released on: Selected bath: Potassium 2 mEq/L Calcium 2.5 mEq/L sevelamer hydrochloride - 800 mg sodium zirconium cyclosilicate powder in packet - 5 gram Plan: Managed per protocol Nutrition: Lab Results Component Value Date LABALBU 3.2 (L) 08/30/2023 NA 136 08/30/2023 Protein Supplements: This patient does not have an active medication from one of the medication groupers. Plan: Managed per protocol Comments: Ongoing issues with medication and dietary compliance. It is very difficult to get a sense of what he is eating and what medications he is taking at home. It is also difficult to get a sense of his overall health and what he is doing to address his non-dialysis needs with PCP and other providers. Carlota Jin MD documented in this encounter Plan of Treatment Upcoming Encounters Date Type Department Care Team (Late st Contact Info) Description 12/06/2024 6:45 EST Treatment [facility] [address] [place], [place] [phone] Carlota Jin MD [address] [place] [address] 2 [place] [phone] 12/08/2024 6:45 EST Treatment [facility] [address] [place] [id number] Carlota Jin MD 1 [facility] 2 [place] [phone] 12/11/2024 6:45 EST Treatment [facility] [address] [place] [phone] Carlota Jin MD 1 [facility] 2 [place] [phone] 12/13/2024 6:45 EST Treatment [facility] [place] [address] [place], [place] [phone] Carlota Jin MD 1 [facility], [facility] [address] [place] [phone] 12/15/2024 6:45 EST Treatment [facility] - [place] [address] [place], [place] [phone] Carlota Jin MD 1 [facility], [facility] [address] [place] [phone] 12/18/2024 6:45 EST Treatment [facility] [place] [address] [place], [place] [phone] Carlota Jin MD 1 [facility], [facility] [address] [place] [phone] 12/20/2024 6:45 EST Treatment [facility] [address] [place], [place] [phone] Carlota Jin MD 1 [facility], [facility] [address] [place] [phone] 12/22/2024 6:45 EST Treatment [facility] [address] [place], [place] [phone] Carlota Jin MD 1 [facility], [facility] [address] [place] [phone] 12/25/2024 6:45 EST Treatment [facility] [place] [address] [place], [place] [phone] Carlota Jin MD 1 [facility], [facility] [address] [place] [phone] 12/27/2024 6:45 EST Treatment [facility] [place] [address] [place], [place] [phone] Carlota Jin MD 1 [facility], [facility] [address] [place] [phone] 12/29/2024 6:45 EST Treatment [facility] [place] [address] [place], [place] [phone] Carlota Jin MD 1 [facility], [facility] [address] [place] [phone] 01/01/2025 6:45 EDT Treatment [facility] [place] [address] [place], [place] [phone] Carlota Jin MD 1 [facility], [facility] [address] [place] [phone] 01/03/2025 6:45 EDT Treatment [facility] [place] [address] [place], [place] [address] Carlota Jin MD 1 [facility], [facility] 2 [place] [phone] 01/05/2025 6:45 EDT Treatment [facility] [place] [address] [place], [place] [phone] Carlota Jin MD 1 [facility], [facility] [address] [place] [phone] 01/08/2025 6:45 EDT Treatment [facility] [place] [address] [place], [place] [phone] Carlota Jin MD 1 [facility], [facility] [address] [place] [phone] 01/10/2025 6:45 EDT Treatment [facility] [place] [address] [place], [place] [phone] Carlota Jin MD 1 [facility], [facility] 2 [place] [phone] 01/12/2025 6:45 EDT Treatment [facility] [place] [address] [place], [place] [phone] Carlota Jin MD 1 [facility], [facility] [address] [place] [phone] 01/15/2025 6:45 EDT Treatment [facility] [place] [address] [place] [address] Carlota Jin MD 1 [facility], [facility] [address] [place] [phone] 01/17/2025 6:45 EDT Treatment [facility] [place] [address] [place], [place] [phone] Carlota Jin MD 1 [facility], [facility] [address] [place] [phone] 01/19/2025 6:45 EDT Treatment [facility] [place] [address] [place], [place] [phone] Carlota Jin MD 1 [facility], [facility] [address] [place] [phone] 01/22/2025 6:45 EDT Treatment [facility] [place] [address] [place], [place] [phone] Carlota Jin MD 1 [facility], [facility] [address] [place] [phone] 01/24/2025 6:45 EDT Treatment [facility] [place] [address] [place], [place] [phone] Carlota Jin MD 1 [facility], [facility] [address] [place] [phone] 01/26/2025 6:45 EDT Treatment [facility] [place] [address] [place], [place] [phone] Carlota Jin MD 1 [facility], [facility] [address] [place] [phone] 01/29/2025 6:45 EDT Treatment [facility] [place] [address] [place], [place] [phone] Carlota Jin MD 1 [facility], [facility] [address] [place] [phone] 01/31/2025 6:45 EDT Treatment [facility] [place] [address] [place], [place] [phone] Carlota Jin MD 1 [facility], [facility] 2 [place] [phone] 02/02/2025 6:45 EDT Treatment [facility] [place] [address] [place], [place] [phone] Carlota Jin MD 1 [facility], [facility] [address] [place] [phone] 02/05/2025 6:45 EDT Treatment [facility] [place] [address] [place], [place] [phone] Carlota Jin MD 1 [facility], [facility] [address] [place] [phone] 02/07/2025 6:45 EDT Treatment [facility] [place] [address] [place], [place] [phone] Carlota Jin MD 1 [facility], [facility] [address] [place] [phone] 02/09/2025 6:45 EDT Treatment [facility] [address] [place], [place] [phone] Carlota Jin MD 1 [facility], [facility] [address] [place] [phone] 02/12/2025 6:45 EDT Treatment [facility] [place] [address] [place], [place] [phone] Carlota Jin MD 1 [facility], [facility] [address] [place] [phone] 02/14/2025 6:45 EDT Treatment [facility] [address] [place], [place] [phone] Carlota Jin MD 1 [facility], [facility] 2 [place] [phone] 02/16/2025 6:45 EDT Treatment [facility] Dial[facility] [address] [place], [place] [phone] Carlota Jin MD [address] [phone] 02/19/2025 6:45 EDT Treatment [facility] [address] [place], [place] [phone] Carlota Jin MD [address] [phone] 02/21/2025 6:45 EDT Treatment [facility] [address] [place], [place] [phone] Carlota Jin MD [address] [phone] documented as of this encounter Procedures Procedure Name Priority Date/Time Associated Diagnosis Comments HEMODIALYSIS Routine 09/06/2023 6:25 EST ESRD (end stage renal disease) ([facility]) documented in this encounter Visit Diagnoses Diagnosis ESRD (end stage renal disease) ([facility])- Primary End stage renal disease Anemia of chronic renal failure, unspecified CKD stage Hypoalbuminemia Other disorders of plasma protein metabolism Secondary hyperparathyroidism ([facility]) Secondary hyperparathyroidism (of renal origin) Encounter for immunization Need for other specified prophylactic vaccination against single bacterial disease documented in this encounter Administered Medications Inactive Administered Medications - up to 3 most recent administrations Medication Order MAR Action Action Date Dose Rate Site acetaminophen (TYLENOL) tablet 650 mg 650 mg, oral, EVERY 4 HOURS PRN, Starting on Wed09/06/23 at 0628, Until Wed09/06/23 at 1042, Pain, Routine, DialysisIndications:ESRD (end stage renal disease) ([facility]) Given 09/06/2023 6:50 EST 650 mg calcium carbonate (TUMS) tablet 500 mg (200 mg elemental calcium) 2 Tablet 2 Tablet, oral, ONCE IN DIALYSIS, 1 dose, On Wed09/06/23 at 0645, Routine, DialysisIndications:ESRD (end stage renal disease) ([facility]),Secondary hyperparathyroidism ([facility]) Given 09/06/2023 6:51 EST 2 Tablets epoetin ken (EPOGEN) 20,000 unit/2 mL injection 1,500 Units 1,500 Units, intravenous, ONCE IN DIALYSIS, 1 dose, On Wed09/06/23 at 0645, Routine, DialysisIndications:ESRD (end stage renal disease) ([facility]),Anemia of chronic renal failure, unspecified CKD stage Given 09/06/2023 6:51 EST 1,500 Units heparin injection 9,000 Units 9,000 Units, intravenous, ONCE IN DIALYSIS, 1 dose, On Wed09/06/23 at 0645, Routine, Dialysis, Now x1 bolus 4500 units to be given at the beginning of dialysis 1500 units/hour to be given over the course of dialysis (9000 units total). Stop 1 hour prior to end of treatment. To be administered per Policy [id number].Indications:ESRD (end stage renal disease) ([facility]) Given 09/06/2023 6:41 EST 9,000 Units iron sucrose (VENOFER) injection 200 mg 200 mg, intravenous, ONCE IN DIALYSIS, 1 dose, On Wed09/06/23 at 0645, Routine, DialysisIndications:Hypoalbuminem ia,Encounter for immunization,ESRD (end stage renal disease) ([facility]) Given 09/06/2023 6:52 EST 200 mg LiquaCel liquid protein liquid 30 mL 30 mL, oral, ONCE IN DIALYSIS, 1 dose, On Wed09/06/23 at 0645, RoutineIndications:Hypoalbuminemi a,ESRD (end stage renal disease) ([facility]) Given 09/06/2023 6:52 EST 30 mL documented in this encounter Orders Dialysis Count Last Ordered Date First Orde red Date HEMODIALYSIS 1 09/06/2023 documented in this encounter Care Teams Carton Wrapper Relationship Specialty Start Date End Date Ken Greer MD [address] [place] [address] PCP - General 07/07/23 documented as of this encounter
--- OUTSIDE RECORDS SUMMARY | 2024-12-05 12:18 | XMS_ITS | Encounter Summary ---
Author Organization [facility] Address [address] [place] [address] Care Team Providers Care Construction Scheduler Name Role Phone Ken Greer MD Primary Care Provider [phone] Encounter Details Date Type Department Care Team (Latest Contact Info) Description 09/20/2023 6:45 EST Treatment [facility] [address] [place], [place] [phone] Carlota Jin MD 1 [facility], Level 2 [place] [phone] ESRD (end stage renal disease) ([facility]) (Primary Dx); Anemia of chronic renal failure, unspecified CKD stage; Hypoalbuminemia; Secondary hyperparathyroidism ([facility] [...] - Temperature - - Respiratory Rate 16 09/20/2023 0625 EST Oxygen Saturation - - Inhaled Oxygen Concentration - - Weight 89.8 kg (197 lb 15.6 oz) 09/20/2023 0623 EST Height - - Body Mass Index 29.24 07/08/2023 0839 EDT documented in this encounter Miscellaneous Notes * Flowsheet Note - Marcela Cox RN - 09/20/2023 1141 EST 09/20/23 1040 Post-Hemodialysis Assessment Total Blood Processed (L) 89.16 Liters On Line Clearance: spKt/V 1.4 spKt/V Dialyzer Clearance Lightly streaked Treatment UFR (ml:kg:hr) 7.13 ml:kg:hr Final Critline Profile (%/hr) -2.19 Final Profile Profile A Critline refill Negative (H1: 33.6 H2: 33.4) Fluid Removed (L) 3.2 L Post-Dialysis Scale Weight 88.3 kg (194 lb 10.7 oz) Wheelchair Weight 0 kg (0 lb) Prosthesis Weight 1 kg (2 lb 3.3 oz) Post-Treatment Weight (kg) 87.3 Treatment Weight Change (kg) 2.5 kg Day Target Weight (kg) 87 Post Sitting/Lying BP 160/75 Post Sitting/Lying pulse 68 Post Standing BP 104/59 Post Standing Pulse 72 Temp 36.1 ??C (97 ??F) Temp src [...] to Treatment Removed 3.2L out of original 3.3L UF goal, goal reduced d/t cramping. Comments no concerns voiced post tx. * Dialysis Rounding - Carlota Jin MD - 09/20/2023 0645 EST Dialysis Provider's Routine Assessment Gerson Bruner was seen and examined as appropriate during Dialysis. Pertinent lab results were reviewed. Changes since last visit: None Changes to current prescriptions/orders: None No acute issues. We talked about smoking cessation. I recommended he try to eliminate one cigarette/day to start. Carlota Jin MD documented in this encounter Plan of Treatment Upcoming Encounters Date Type Department Care Team (Late st Contact Info) Description 12/06/2024 6:45 EST Treatment [facility] [place] [address] [place], [place] [phone] Carlota Jin MD 1 [facility], [facility] 2 [place] [phone] 12/08/2024 6:45 EST Treatment [facility] [place] [address] [place], [place] [phone] Carlota Jin MD [address] [phone] 12/11/2024 6:45 EST Treatment [facility] [place] [address] [place], [place] [phone] Carlota Jin MD [address] [phone] 12/13/2024 6:45 EST Treatment [facility] D[facility] [address] [place], [place] [phone] Carlota Jin MD [address] [phone] 12/15/2024 6:45 EST Treatment [facility] [address] [place], [place] [phone] Carlota Jin MD [address] [phone] 12/18/2024 6:45 EST Treatment [facility] [place] [address] [place], [place] [phone] Carlota Jin MD [address] [facility] [place], [facility] 2 [place] [phone] 12/20/2024 6:45 EST Treatment [facility] [place] [address] [place], [place] [phone] Carlota Jin MD [address] [facility] [place] [place], [facility] 2 [place] [phone] 12/22/2024 6:45 EST Treatment [facility] [place] [address] [place] [address] Carlota Jin MD 1 [facility], [facility] 2 [place] [phone] 12/25/2024 6:45 EST Treatment [facility] [place] [address] [place] [address] Carlota Jin MD [address] [facility] [place] [place], [facility] 2 [place] [phone] 12/27/2024 6:45 EST Treatment [facility] [place] [address] [place], [place] [phone] Carlota Jin MD [address] [facility] [place] [place], Level [address] [place] [phone] 12/29/2024 6:45 EST Treatment [facility] [place] [address] [place], [place] [id number] Carlota Jin MD 1 [facility], [address] [phone] 01/01/2025 6:45 EDT Treatment [facility] [place] [address] [place], [place] [phone] Carlota Jin MD 1 [facility], [address] [phone] 01/03/2025 6:45 EDT Treatment [facility] [place] [address] [place], [place] [phone] Carlota Jin MD 1 [facility], [address] [phone] 01/05/2025 6:45 EDT Treatment [facility] [place] [address] [place], [place] [phone] Carlota Jin MD [address] [phone] 01/08/2025 6:45 EDT Treatment [facility] [place] [address] [place], [place] [phone] Carlota Jin MD [address] [phone] 01/10/2025 6:45 EDT Treatment [facility] [place] [address] [place], [place] [phone] Carlota Jin MD 1 [facility], [address] [phone] 01/12/2025 6:45 EDT Treatment [facility] [place] [address] [place], [place] [phone] Carlota Jin MD [address] [facility] [place] [place], [facility] 2 [place] [phone] 01/15/2025 6:45 EDT Treatment [facility] [place] [address] [place], [place] [phone] Carlota Jin MD 1 [facility], [facility] 2 [place] [phone] 01/17/2025 6:45 EDT Treatment [facility] [place] [address] [place], [place] [phone] Carlota Jin MD 1 [facility], [address] [phone] 01/19/2025 6:45 EDT Treatment [facility] [place] [address] [place], [place] [phone] Carlota Jin MD 1 [facility], [facility] 2 [place] [phone] 01/22/2025 6:45 EDT Treatment [facility] [place] [address] [place], [place] [phone] Carlota Jin MD 1 [facility], [facility] 2 [place] [phone] 01/24/2025 6:45 EDT Treatment [facility] [place] [address] [place], [place] [phone] Carlota Jin MD 1 [facility], [facility] 2 [place] [phone] 01/26/2025 6:45 EDT Treatment [facility] [place] [address] [place], [place] [phone] Carlota Jin MD 1 [facility], [address] [phone] 01/29/2025 6:45 EDT Treatment [facility] [place] [address] [place], [place] [phone] Carlota Jin MD 1 [facility], [address] [phone] 01/31/2025 6:45 EDT Treatment [facility] [place] [address] [place], [place] [phone] Carlota Jin MD 1 [facility], [address] [phone] 02/02/2025 6:45 EDT Treatment [facility] [place] [address] [place], [place] [phone] Carlota Jin MD 1 [facility], [address] [phone] 02/05/2025 6:45 EDT Treatment [facility] [place] [address] [place], [place] [phone] Carlota Jin MD [address] [facility] [place] [place], Level [address] [place] [phone] 02/07/2025 6:45 EDT Treatment [facility] [place] [address] [place], [place] [phone] Carlota Jin MD [address] [facility] [place] [place], [facility] 2 [place] [phone] 02/09/2025 6:45 EDT Treatment [facility] [place] [address] [place], [place] [phone] Carlota Jin MD 1 [facility], [facility] 2 [place] [phone] 02/12/2025 6:45 EDT Treatment [facility] [place] [address] [place] [address] Carlota Jin MD [address] [facility] [place] [place], [facility] 2 [place] [phone] 02/14/2025 6:45 EDT [facility] [address] [place] [address] Carlota Jin MD [address] [facility] [place] [place], [facility] 2 [place] [phone] 02/16/2025 6:45 EDT Treatment [facility] [address] [place], [place] [phone] Carlota Jin MD 1 [facility], [facility] 2 [place] [phone] 02/19/2025 6:45 EDT Treatment [facility] [address] [place], [place] [phone] Carlota Jin MD 1 [facility], [facility] 2 [place] [phone] 02/21/2025 6:45 EDT Treatment [facility] [address] [place], [place] [phone] Carlota Jin MD 1 [facility], [facility] 2 [place] [phone] documented as of this encounter Procedures Procedure Name Priority Date/Time Associated Diagnosis Comments HEMODIALYSIS Routine 09/20/2023 6:25 EST ESRD (end stage renal disease) ([facility]) documented in this encounter Visit Diagnoses Diagnosis ESRD (end stage renal disease) ([facility])- Primary End stage renal disease Anemia of chronic renal failure, unspecified CKD stage Hypoalbuminemia Other disorders of plasma protein metabolism Secondary hyperparathyroidism ([facility]) Secondary hyperparathyroidism (of renal origin) documented in this encounter Administered Medications Inactive Administered Medications - up to 3 most recent administrations Medication Order MAR Action Action Date Dose Rate Site acetaminophen (TYLENOL) tablet 650 mg 650 mg, oral, EVERY 4 HOURS PRN, Starting on Wed09/20/23 at 0627, Until Wed09/20/23 at 1341, Pain, Routine, DialysisIndications:ESRD (end stage renal disease) ([facility]) Given 09/20/2023 6:39 EST 650 mg calcium carbonate (TUMS) tablet 500 mg (200 mg elemental calcium) 2 Tablet 2 Tablet, oral, ONCE IN DIALYSIS, 1 dose, On Wed09/20/23 at 0645, Routine, DialysisIndications:ESRD (end stage renal disease) ([facility]),Secondary hyperparathyroidism ([facility]) Given 09/20/2023 6:39 EST 2 Tablets epoetin ken (EPOGEN) 20,000 unit/2 mL injection 1,500 Units 1,500 Units, intravenous, ONCE IN DIALYSIS, 1 dose, On Wed09/20/23 at 0645, Routine, DialysisIndications:ESRD (end stage renal disease) ([facility]),Anemia of chronic renal failure, unspecified CKD stage Given 09/20/2023 6:47 EST 1,500 Units heparin injection 9,000 Units 9,000 Units, intravenous, ONCE IN DIALYSIS, 1 dose, On Wed09/20/23 at 0645, Routine, Dialysis, Now x1 bolus 4500 units to be given at the beginning of dialysis 1500 units/hour to be given over the course of dialysis (9000 units total). Stop 1 hour prior to end of treatment. To be administered per Policy [id number].Indications:ESRD (end stage renal disease) ([facility]) Given 09/20/2023 6:47 EST 9,000 Units LiquaCel liquid protein liquid 30 mL 30 mL, oral, ONCE IN DIALYSIS, 1 dose, On Wed09/20/23 at 0645, RoutineIndications:Hypoalbuminemi a,ESRD (end stage renal disease) ([facility]) Given 09/20/2023 6:47 EST 30 mL documented in this encounter Orders Dialysis Count Last Ordered Date First Orde red Date HEMODIALYSIS 1 09/20/2023 documented in this encounter Care Teams Construction Scheduler Relationship Specialty Start Date End Date Ken Greer MD [address] [place] [address] PCP - General 07/07/23 documented as of this encounter
--- OUTSIDE RECORDS SUMMARY | 2024-12-05 12:18 | XMS_ITS | Encounter Summary ---
Author Organization [facility] Address [address] [place] [address] Care Team Providers Care Director Of Student Services Name Role Phone Ken Greer MD Primary Care Provider [phone] Encounter Details Date Type Department Care Team (Latest Contact Info) Description 09/13/2023 6:45 EST Treatment [facility] [address] [place], [place] [id number] Carlota Jin MD 1 [facility], Level [address] [place] [address] ESRD (end stage renal disease) ([facility]) (Primary Dx); Anemia of chronic renal failure, unspecified CKD stage; Hypoalbuminemia; Secondary hyperparathyroidism ([facility]) Social History Tobacco Use Types Packs/Day [...] - Temperature - - Respiratory Rate 16 09/13/2023 0640 EST Oxygen Saturation - - Inhaled Oxygen Concentration - - Weight 91.6 kg (201 lb 15.1 oz) 09/13/2023 0630 EST Height - - Body Mass Index 29.82 07/08/2023 0839 EDT documented in this encounter Miscellaneous Notes * Flowsheet Note - Marcela Cox RN - 09/13/2023 1347 EST 09/13/23 1057 Post-Hemodialysis Assessment Total Blood Processed (L) 88.39 Liters On Line Clearance: spKt/V 1.43 spKt/V Dialyzer Clearance Lightly streaked Treatment UFR (ml:kg:hr) 10.69 ml:kg:hr Fluid Removed (L) 4 L Post-Dialysis Scale Weight 88.8 kg (195 lb 12.3 oz) Wheelchair Weight 0 kg (0 lb) Prosthesis Weight 1 kg (2 lb 3.3 oz) Post-Treatment Weight (kg) 87.8 Treatment Weight Change (kg) 3.8 kg Day Target Weight (kg) 88.1 Post Sitting/Lying BP 152/71 Post Sitting/Lying pulse 64 Post Standing BP 114/66 Post Standing Pulse 69 Temp 35.3 ??C (95.5 ??F) Temp src Temporal Post access assessment Bruit present: Yes Thrill Present AVF/AFG Hemostasis achieved Yes Note 2x clamps used on access, no bleeding, clean dry bandages applied Orientation [...] [facility] [place] [address] [place], [place] [id number] Carlota Jin MD 1 [facility], [address] [place] [phone] 12/08/2024 6:45 EST Treatment [facility] [place] [address] [place], [place] [id number] Carlota Jin MD 1 [facility], [facility] [address] [place] [phone] 12/11/2024 6:45 EST Treatment [facility] [place] [address] [place], [place] [id number] Carlota Jin MD 1 [facility], [facility] [address] [place] [phone] 12/13/2024 6:45 EST Treatment [facility] [place] [address] [place], [place] [id number] Carlota Jin MD 1 [facility], [facility] [address] [place] [phone] 12/15/2024 6:45 EST Treatment [facility] [place] [address] [place], [place] [id number] Carlota Jin MD 1 [facility], [facility] [address] [place] [phone] 12/18/2024 6:45 EST Treatment [facility] [place] [address] [place], [place] [id number] Carlota Jin MD 1 [facility], [facility] 2 [place] [phone] 12/20/2024 6:45 EST Treatment [facility] [place] [address] [place], [place] [id number] Carlota Jin MD 1 [facility], [facility] [address] [place] [phone] 12/22/2024 6:45 EST Treatment [facility] [place] [address] [place], [place] [id number] Carlota Jin MD 1 [facility], [facility] [address] [place] [phone] 12/25/2024 6:45 EST Treatment [facility] [place] [address] [place], [place] [id number] Carlota Jin MD 1 [facility], [facility] 2 [place] [phone] 12/27/2024 6:45 EST Treatment [facility] [place] [address] [place], [place] [id number] Carlota Jin MD 1 [facility], [address] [phone] 12/29/2024 6:45 EST Treatment [facility] [address] [place] [address] Carlota Jin MD 1 [facility], [facility] [address] [place] [phone] 01/01/2025 6:45 EDT Treatment [facility] [address] [place], [place] [id number] Carlota Jin MD 1 [facility], [facility] 2 [place] [phone] 01/03/2025 6:45 EDT Treatment [facility] [place] [address] [place], [place] [id number] Carlota Jin MD 1 [facility], [address] [phone] 01/05/2025 6:45 EDT Treatment [facility] [place] [address] [place], [place] [id number] Carlota Jin MD 1 [facility], [address] [phone] 01/08/2025 6:45 EDT Treatment [facility] [place] [address] [place], [place] [id number] Carlota Jin MD 1 [facility], [address] [phone] 01/10/2025 6:45 EDT Treatment [facility] [place] [address] [place], [place] [id number] Carlota Jin MD 1 [facility], [address] [phone] 01/12/2025 6:45 EDT Treatment [facility] [place] [address] [place], [place] [id number] Carlota Jin MD [address] [place] [address], [address] [phone] 01/15/2025 6:45 EDT Treatment [facility] [place] [address] [place], [place] [id number] Carlota Jin MD 1 [facility], [address] [place] [phone] 01/17/2025 6:45 EDT Treatment [facility] [place] [address] [place], [place] [address] Carlota Jin MD 1 [facility], [facility] 2 [place] [phone] 01/19/2025 6:45 EDT Treatment [facility] [place] [address] [place], [place] [phone] Carlota Jin MD 1 [facility], [facility] 2 [place] [phone] 01/22/2025 6:45 EDT Treatment [facility] [place] [address] [place], [place] [phone] Carlota Jin MD 1 [facility], [facility] 2 [place] [phone] 01/24/2025 6:45 EDT Treatment [facility] [address] [place], [place] [phone] Carlota Jin MD 1 [facility], [facility] 2 [place] [phone] 01/26/2025 6:45 EDT Treatment [facility] [address] [place], [place] [id number] Carlota Jin MD 1 [facility], [facility] 2 [place] [phone] 01/29/2025 6:45 EDT Treatment [facility] [place] [address] [place], [place] [phone] Carlota Jin MD 1 [facility], [facility] 2 [place] [phone] 01/31/2025 6:45 EDT Treatment [facility] [place] [address] [place], [place] [id number] Carlota Jin MD 1 [facility], [facility] 2 [place] [phone] 02/02/2025 6:45 EDT Treatment [facility] [place] [address] [place], [place] [phone] Carlota Jin MD 1 [facility], [facility] 2 [place] [phone] 02/05/2025 6:45 EDT Treatment [facility] [place] [address] [place], [place] [phone] Carlota Jin MD 1 [facility], [facility] 2 [place] [phone] 02/07/2025 6:45 EDT Treatment [facility] [place] [address] [place], [place] [id number] Carlota Jin MD 1 [facility], [facility] 2 [place] [phone] 02/09/2025 6:45 EDT Treatment [facility] [place] [address] [place], [place] [id number] Carlota Jin MD 1 [facility], [facility] 2 [place] [phone] 02/12/2025 6:45 EDT Treatment [facility] [place] [address] [place], [place] [phone] Carlota Jin MD 1 [facility], [facility] 2 [place] [phone] 02/14/2025 6:45 EDT Treatment [facility] [place] [address] [place] [address] Carlota Jin MD 1 [facility], [address] [phone] 02/16/2025 6:45 EDT Treatment [facility] [place] [address] [place], [place] [id number] Carlota Jin MD 1 [facility], [address] [phone] 02/19/2025 6:45 EDT Treatment [facility] [place] [address] [place] [address] Carlota Jin MD 1 [facility], [facility] 2 [place] [phone] 02/21/2025 6:45 EDT Treatment [facility] [place] [address] [place], [place] [phone] Carlota Jin MD 1 [facility], [facility] 2 [place] [phone] documented as of this encounter Procedures Procedure Name Priority Date/Time Associated Diagnosis Comments HEMODIALYSIS Routine 09/13/2023 6:40 EST ESRD (end stage renal disease) ([facility]) documented in this encounter Visit Diagnoses Diagnosis ESRD (end stage renal disease) ([facility])- Primary End stage renal disease Anemia [...] oral, ONCE IN DIALYSIS, 1 dose, On Wed09/13/23 at 0700, Routine, DialysisIndications:ESRD (end stage renal disease) ([facility]),Secondary hyperparathyroidism ([facility]) Given 09/13/2023 7:05 EST 2 Tablets epoetin ken (EPOGEN) 20,000 unit/2 mL injection 1,500 Units 1,500 Units, intravenous, ONCE IN DIALYSIS, 1 dose, On Wed09/13/23 at 0700, Routine, DialysisIndications:ESRD (end stage renal disease) ([facility]),Anemia of chronic renal failure, unspecified CKD stage Given 09/13/2023 7:05 EST 1,500 Units heparin injection 9,000 Units 9,000 Units, intravenous, ONCE IN DIALYSIS, 1 dose, On Wed09/13/23 at 0700, Routine, Dialysis, Now x1 bolus 4500 units to be given at the beginning of dialysis 1500 units/hour to be given over the course of dialysis (9000 units total). Stop 1 hour prior to end of treatment. To be administered per Policy [id number].Indications:ESRD (end stage renal disease) ([facility]) Given 09/13/2023 7:05 EST 9,000 Units LiquaCel liquid protein liquid 30 mL 30 mL, oral, ONCE IN DIALYSIS, 1 dose, On Wed09/13/23 at 0700, RoutineIndications:Hypoalbuminemi a,ESRD (end stage renal disease) ([facility]) Given 09/13/2023 7:06 EST 30 mL documented in this encounter Orders Dialysis Count Last Ordered Date First Orde red Date HEMODIALYSIS 1 09/13/2023 documented in this encounter Care Teams Director Of Student Services Relationship Specialty Start Date End Date Ken Greer MD [facility] [place] [address] PCP - General 07/07/23 documented as of this encounter
--- OUTSIDE RECORDS SUMMARY | 2024-12-05 12:18 | XMS_ITS | Encounter Summary ---
Author Organization [facility] Address [address] [place] [address] Care Team Providers Care Veneer Taping Machine Operator Name Role Phone Ken Greer MD Primary Care Provider [phone] Encounter Details Date Type Department Care Team (Latest Contact Info) Description 09/15/2023 6:45 EST Treatment [facility] [address] [place], [place] [id number] Carlota Jin MD 1 [facility], Level 2 [place] [address] ESRD (end stage renal disease) ([facility]) (Primary Dx); Anemia of chronic renal failure, unspecified CKD stage; Hypoalbuminemia; Secondary hyperparathyroidism ([facility]) Social History Tobacco Use Types Packs/Day Years [...] - Temperature - - Respiratory Rate 16 09/15/2023 0636 EST Oxygen Saturation - - Inhaled Oxygen Concentration - - Weight 90 kg (198 lb 6.6 oz) 09/15/2023 0636 EST Height - - Body Mass Index 29.3 07/08/2023 0839 EDT documented in this encounter Miscellaneous Notes * Flowsheet Note - Marcela Cox RN - 09/15/2023 1322 EST 09/15/23 1050 Post-Hemodialysis Assessment Total Blood Processed (L) 88.55 Liters On Line Clearance: spKt/V 1.4 spKt/V Dialyzer Clearance Lightly streaked Treatment UFR (ml:kg:hr) 10.88 ml:kg:hr Fluid Removed (L) 3.49 L Post-Dialysis Scale Weight 87.2 kg (192 lb 3.9 oz) Wheelchair Weight 0 kg (0 lb) Prosthesis Weight 1 kg (2 lb 3.3 oz) Post-Treatment Weight (kg) 86.2 Treatment Weight Change (kg) 3.8 kg Day Target Weight (kg) 87 Post Sitting/Lying BP 128/78 Post Sitting/Lying pulse 64 Post Standing BP 122/69 Post Standing Pulse 68 Temp 36.3 ??C (97.3 ??F) Temp src Temporal Post access assessment Bruit present: Yes Thrill Present AVF/AFG Hemostasis achieved Yes Note access clamped 2x, no bleeding, clean dry bandages applied Orientation Alert and Oriented x3 Yes Time Yes Place Yes Person Yes Cooperative Yes Disoriented No Discharge Ambulation Methods Ambulatory with assistive device Ambulation device Cane Wrap up items Patient Response to Treatment Tolerated tx well. Removed 3.5L UF goal without difficulty. Comments venous line disconnected from dialyzer at end of tx, unable to perform rinseback d/t this issue. no harm to pt/issues reported. D/c stable. * Dialysis Rounding - Skye Gomez NP - 09/15/2023 0638 EST Dialysis Provider's Routine Assessment The visit was conducted via telehealth (audio/video) between the [facility] dialysis unit and the provider from their Home Office. The interaction was assisted by Tech. The patient has no complaints and no new issues have been raised by the dialysis staff. Consent has been obtained and is available on file. Gerson Bruner was seen and examined as appropriate during Dialysis. Pertinent lab results were reviewed. Changes since last visit: None Changes to current prescriptions/orders: None The concept of ???Telemedicine?? has been described [...] EST Treatment [facility] [address] [place], [place] [id number] Carlota Jin MD [address] [place] [address], [facility] [address] [place] [phone] 12/08/2024 6:45 EST Treatment [facility] [address] [place], [place] [id number] Carlota Jin MD 1 [facility], [facility] [address] [place] [phone] 12/11/2024 6:45 EST [facility] [address] [place], [place] [id number] Carlota Jin MD 1 [facility], [facility] [address] [place] [phone] 12/13/2024 6:45 EST Treatment [facility] [place] [address] [place], [place] [id number] Carlota Jin MD 1 [facility], [facility] [address] [place] [phone] 12/15/2024 6:45 EST Treatment [facility] [place] [address] [place], [place] [id number] Carlota Jin MD 1 [facility], [facility] [place] [phone] 12/18/2024 6:45 EST Treatment [facility] [place] [address] [place], [place] [id number] Carlota Jin MD 1 [facility], [facility] [address] [place] [phone] 12/20/2024 6:45 EST Treatment [facility] [place] [address] [place], [place] [id number] Carlota Jin MD 1 [facility], [facility] [place] [phone] 12/22/2024 6:45 EST Treatment [facility] [place] [address] [place], [place] [id number] Carlota Jin MD 1 [facility], [facility] [place] [phone] 12/25/2024 6:45 EST Treatment [facility] [place] [address] [place], [place] [phone] Carlota Jin MD 1 [facility], [facility] [place] [phone] 12/27/2024 6:45 EST Treatment [facility] [place] [address] [place], [place] [address] Carlota Jin MD 1 [facility], [facility] [address] [place] [phone] 12/29/2024 6:45 EST Treatment [facility] [address] [place] [address] Carlota Jin MD 1 [facility], [facility] [address] [place] [phone] 01/01/2025 6:45 EDT Treatment [facility] [address] [place] [address] Carlota Jin MD 1 [facility], [facility] [address] [place] [phone] 01/03/2025 6:45 EDT [facility] [address] [place] [address] Carlota Jin MD 1 [facility], [facility] 2 [place] [phone] 01/05/2025 6:45 EDT Treatment [facility] [address] [place], [place] [phone] Carlota Jin MD 1 [facility], [facility] [address] [place] [phone] 01/08/2025 6:45 EDT Treatment [facility] [place] [address] [place], [place] [phone] Carlota Jin MD 1 [facility], [facility] [address] [place] [phone] 01/10/2025 6:45 EDT Treatment [facility] [place] [address] [place], [place] [phone] Carlota Jin MD 1 [facility], [facility] [place] [phone] 01/12/2025 6:45 EDT Treatment [facility] [place] [address] [place] [address] Carlota Jin MD [address] [place] [address], [address] [phone] 01/15/2025 6:45 EDT Treatment [facility] [place] [address] [place], [place] [id number] Carlota Jin MD 1 [facility], [facility] [address] [place] [phone] 01/17/2025 6:45 EDT Treatment [facility] [place] [address] [place], [place] [id number] Carlota Jin MD 1 [facility], [facility] 2 [place] [phone] 01/19/2025 6:45 EDT Treatment [facility] [place] [address] [place], [place] [phone] Carlota Jin MD 1 [facility], [facility] [place] [phone] 01/22/2025 6:45 EDT Treatment [facility] [place] [address] [place], [place] [phone] Carlota Jin MD 1 [facility], [facility] [place] [phone] 01/24/2025 6:45 EDT Treatment [facility] [place] [address] [place] [address] Carlota Jin MD 1 [facility], [address] [phone] 01/26/2025 6:45 EDT Treatment [facility] [place] [address] [place], [place] [phone] Carlota Jin MD 1 [facility], [address] [phone] 01/29/2025 6:45 EDT Treatment [facility] [place] [address] [place] [address] Carlota Jin MD 1 [facility], [facility] [place] [phone] 01/31/2025 6:45 EDT Treatment [facility] [place] [address] [place], [place] [phone] Carlota Jin MD 1 [facility], [facility] 2 [place] [phone] 02/02/2025 6:45 EDT Treatment [facility] [place] [address] [place], [place] [address] Carlota Jin MD 1 [facility], [facility] 2 [place] [phone] 02/05/2025 6:45 EDT Treatment [facility] [place] [address] [place], [place] [phone] Carlota Jin MD [address] [place] [address], [facility] [address] [place] [phone] 02/07/2025 6:45 EDT Treatment [facility] [place] [address] [place] [address] Carlota Jin MD 1 [facility], [facility] [place] [phone] 02/09/2025 6:45 EDT Treatment [facility] [place] [address] [place] [address] Carlota Jin MD [address] [place] [address], [facility] 2 [place] [phone] 02/12/2025 6:45 EDT Treatment [facility] [place] [address] [place], [place] [phone] Carlota Jin MD [address] [place] [address], [facility] 2 [place] [phone] 02/14/2025 6:45 EDT Treatment [facility] [place] [address] [place], [place] [phone] Carlota Jin MD 1 [facility], [facility] 2 [place] [phone] 02/16/2025 6:45 EDT Treatment [facility] [address] [place], [place] [phone] Carlota Jin MD 1 [facility], [facility] [place] [phone] 02/19/2025 6:45 EDT Treatment [facility] [address] [place], [place] [phone] Carlota Jin MD 1 [facility], [facility] [place] [phone] 02/21/2025 6:45 EDT Treatment [facility] [address] [place], [place] [phone] Carlota Jin MD 1 [facility], [facility] [place] [phone] documented as of this encounter Procedures Procedure Name Priority Date/Time Associated Diagnosis Comments COMPLETE BLOOD COUNT Routine 09/15/2023 6:49 EST ESRD (end stage renal disease) ([facility]) HEMODIALYSIS Routine 09/15/2023 6:36 EST ESRD (end stage renal disease) ([facility]) documented in this encounter Results * (ABNORMAL) COMPLETE BLOOD COUNT (09/15/2023 6:49 EST) WBC 7.48 4.00 - 10.40 K/cmm 09/15/2023 21:25 EST [facility] RBC 3.31(L) 4.36 - 5.78 M/cmm 09/15/2023 21:25 [facility] Hemoglobin 10.4(L) 13.8 - 17.3 g/dL 09/15/2023 21:25 [facility] HCT 31.4(L) 39.5 - 50.2 % 09/15/2023 21:25 [facility] MCV 95 81 - 95 fL 09/15/2023 21:25 [facility] MCH 31.4 27.6 - 33.0 pg 09/15/2023 21:25 [facility] MCHC 33.1 32.8 - 36.4 g/dL 09/15/2023 21:25 [facility] RDW-CV 12.3 <14.2 % 09/15/2023 21:25 [facility] RDW-SD 43.3 <46.0 fl 09/15/2023 21:25 [facility] PLT 266 141 - 377 K/cmm 09/15/2023 21:25 [facility] MPV 11.9 9.5 - 12.7 fL 09/15/2023 21:25 [facility] Blood VENOUS BLOOD / Unknown Venipuncture / Unknown 09/15/2023 6:49 EST 09/15/2023 6:50 EST us Carlota Jin MD HEMATOLOGY & PF4 ORDERABL ES Final Result [facility] [address] [place] [address] documented in this encounter Visit Diagnoses Diagnosis ESRD (end stage renal disease) ([facility])- Primary End stage renal disease Anemia of chronic renal failure, unspecified CKD stage Hypoalbuminemia Other disorders of plasma protein metabolism Secondary hyperparathyroidism ([facility]) Secondary hyperparathyroidism (of renal origin) documented in this encounter Administered Medications Inactive Administered Medications - up to 3 most recent administrations Medication Order MAR Action Action Date Dose Rate Site calcium carbonate (TUMS) tablet 500 mg (200 mg elemental calcium) 2 Tablet 2 Tablet, oral, ONCE IN DIALYSIS, 1 dose, On Wed09/15/23 at 0700, Routine, DialysisIndications:ESRD (end stage renal disease) ([facility]),Secondary hyperparathyroidism ([facility]) Given 09/15/2023 7:03 EST 2 Tablets epoetin ken (EPOGEN) 20,000 unit/2 mL injection 1,500 Units 1,500 Units, intravenous, ONCE IN DIALYSIS, 1 dose, On Wed09/15/23 at 0700, Routine, DialysisIndications:ESRD (end stage renal disease) ([facility]),Anemia of chronic renal failure, unspecified CKD stage Given 09/15/2023 7:03 EST 1,500 Units heparin injection 9,000 Units 9,000 Units, intravenous, ONCE IN DIALYSIS, 1 dose, On Wed09/15/23 at 0700, Routine, Dialysis, Now x1 bolus 4500 units to be given at the beginning of dialysis 1500 units/hour to be given over the course of dialysis (9000 units total). Stop 1 hour prior to end of treatment. To be administered per Policy [id number].Indications:ESRD (end stage renal disease) ([facility]) Given 09/15/2023 7:03 EST 9,000 Units LiquaCel liquid protein liquid 30 mL 30 mL, oral, ONCE IN DIALYSIS, 1 dose, On Wed09/15/23 at 0700, RoutineIndications:Hypoalbuminemi a,ESRD (end stage renal disease) ([facility]) Given 09/15/2023 7:03 EST 30 mL documented in this encounter Orders Dialysis Count Last Ordered Date First Orde red Date HEMODIALYSIS 1 09/15/2023 documented in this encounter Care Teams Veneer Taping Machine Operator Relationship Specialty Start Date End Date Ken Greer MD [facility] [place] [address] PCP - General 07/07/23 documented as of this encounter
--- OUTSIDE RECORDS SUMMARY | 2024-12-05 12:18 | XMS_ITS | Encounter Summary ---
Author Organization [facility] Address [address] [place] [address] Care Team Providers Care Hvac Design Engineer Name Role Phone Ken Greer MD Primary Care Provider [phone] Encounter Details Date Type Department Care Team (Latest Contact Info) Description 09/10/2023 6:45 EST Treatment [facility] [address] [place], [place] [id number] Carlota Jin MD 1 [facility], Level [address] [place] [address] ESRD (end stage renal disease) ([facility]) (Primary Dx); Anemia of chronic renal failure, unspecified CKD stage; Hypoalbuminemia; Secondary hyperparathyroidism ([facility]) Social History Tobacco Use Types [...] - Temperature - - Respiratory Rate 16 09/10/2023 0637 EST Oxygen Saturation - - Inhaled Oxygen Concentration - - Weight 89.3 kg (196 lb 13.9 oz) 09/10/2023 0627 EST Height - - Body Mass Index 29.07 07/08/2023 0839 EDT documented in this encounter Miscellaneous Notes * Flowsheet Note - Melissa Crespo RN - 09/10/2023 1541 EST 09/10/23 1054 Post-Hemodialysis Assessment Total Blood Processed (L) 87.32 Liters On Line Clearance: spKt/V 1.41 spKt/V Dialyzer Clearance Lightly streaked Treatment UFR (ml:kg:hr) 8.62 ml:kg:hr Fluid Removed (L) 3 L Post-Dialysis Scale Weight 86.3 kg (190 lb 4.1 oz) Wheelchair Weight 0 kg (0 lb) Prosthesis Weight 0 kg (0 lb) Post-Treatment Weight (kg) 86.3 Treatment Weight Change (kg) 3 kg Day Target Weight (kg) 86.8 Post Sitting/Lying BP 142/74 Post Sitting/Lying pulse 63 Post Standing BP 112/61 Post Standing Pulse 68 Temp 36.5 ??C (97.7 ??F) Temp src Temporal Post access assessment AVF/AFG Hemostasis achieved Yes Orientation Alert and Oriented x3 Yes Time Yes Place Yes Person Yes Cooperative Yes Disoriented No Discharge Ambulation Methods Ambulatory without assistance Wrap up items Patient Response to Treatment Tolerated tx. Removed 3000 UF goal. Stable upon DC from unit. Comments No issues during tx, No concerns voiced post tx. documented in this encounter Plan of Treatment Upcoming Encounters Date Type Department Care Team (Late st Contact Info) Description 12/06/2024 6:45 EST Treatment [facility] [address] [place] [id number] Carlota Jin MD 1 [facility], Level [address] [place] [phone] 12/08/2024 6:45 EST Treatment [facility] [address] [place] [id number] Carlota Jin MD 1 [facility], Level [address] [place] [phone] 12/11/2024 6:45 EST Treatment [facility] - [place] [address] [place], [place] [id number] Carlota Jin MD 1 [facility], [facility] 2 [place] [phone] 12/13/2024 6:45 EST Treatment [facility] - [place] [address] [place], [place] [id number] Carlota Jin MD 1 [facility], [facility] 2 [place] [phone] 12/15/2024 6:45 EST Treatment [facility] - [place] [address] [place] [address] Carlota Jin MD 1 [facility], [facility] 2 [place] [phone] 12/18/2024 6:45 EST Treatment [facility] [address] [place] [address] Carlota Jin MD 1 [facility], [facility] 2 [place] [phone] 12/20/2024 6:45 EST Treatment [facility] [place] [address] [place], [place] [id number] Carlota Jin MD 1 [facility], [facility] 2 [place] [phone] 12/22/2024 6:45 EST Treatment [facility] - [place] [address] [place], [place] [id number] Carlota Jin MD 1 [facility], [facility] 2 [place] [phone] 12/25/2024 6:45 EST Treatment [facility] - [place] [address] [place], [place] [id number] Carlota Jin MD 1 [facility], [facility] 2 [place] [phone] 12/27/2024 6:45 EST Treatment [facility] - [place] [address] [place], [place] [id number] Carlota Jin MD 1 [facility], [facility] 2 [place] [phone] 12/29/2024 6:45 EST Treatment [facility] - [place] [address] [place], [place] [id number] Carlota Jin MD 1 [facility], [facility] 2 [place] [phone] 01/01/2025 6:45 EDT Treatment [facility] - [place] [address] [place], [place] [id number] Carlota Jin MD 1 [facility], [facility] 2 [place] [phone] 01/03/2025 6:45 EDT Treatment [facility] - [place] [address] [place], [place] [id number] Carlota Jin MD 1 [facility], [facility] 2 [place] [phone] 01/05/2025 6:45 EDT Treatment [facility] - [place] [address] [place], [place] [id number] Carlota Jin MD 1 [facility], [facility] 2 [place] [phone] 01/08/2025 6:45 EDT Treatment [facility] - [place] [address] [place] [address] Carlota Jin MD 1 [facility], [facility] 2 [place] [phone] 01/10/2025 6:45 EDT Treatment [facility] - [place] [address] [place] [address] Carlota Jin MD 1 [facility], [facility] 2 [place] [phone] 01/12/2025 6:45 EDT Treatment [facility] - [place] [address] [place] [address] Carlota Jin MD 1 [facility], [facility] 2 [place] [phone] 01/15/2025 6:45 EDT Treatment [facility] - [place] [address] [place], [place] [phone] Carlota Jin MD 1 [facility], [facility] 2 [place] [phone] 01/17/2025 6:45 EDT Treatment [facility] - [place] [address] [place], [place] [phone] Carlota Jin MD 1 [facility], [facility] 2 [place] [phone] 01/19/2025 6:45 EDT Treatment [facility] - [place] [address] [place], [place] [id number] Carlota Jin MD 1 [facility], [facility] 2 [place] [phone] 01/22/2025 6:45 EDT Treatment [facility] - [place] [address] [place] [address] Carlota Jin MD 1 [facility], [address] [phone] 01/24/2025 6:45 EDT Treatment [facility] - [place] [address] [place], [place] [phone] Carlota Jin MD 1 [facility], [facility] 2 [place] [phone] 01/26/2025 6:45 EDT Treatment [facility] - [place] [address] [place], [place] [phone] Carlota Jin MD 1 [facility], [facility] 2 [place] [phone] 01/29/2025 6:45 EDT Treatment [facility] - [place] [address] [place], [place] [id number] Carlota Jin MD 1 [facility], [facility] 2 [place] [phone] 01/31/2025 6:45 EDT Treatment [facility] - [place] [address] [place] [address] Carlota Jin MD 1 [facility], [facility] 2 [place] [phone] 02/02/2025 6:45 EDT Treatment [facility] - [place] [address] [place] [address] Carlota Jin MD 1 [facility], [facility] 2 [place] [phone] 02/05/2025 6:45 EDT Treatment [facility] - [place] [address] [place], [place] [phone] Carlota Jin MD 1 [facility], [facility] 2 [place] [phone] 02/07/2025 6:45 EDT Treatment [facility] [place] [address] [place] [address] Carlota Jin MD 1 [facility], [facility] 2 [place] [phone] 02/09/2025 6:45 EDT Treatment [facility] - [place] [address] [place], [place] [phone] Carlota Jin MD 1 [facility], [facility] 2 [place] [phone] 02/12/2025 6:45 EDT Treatment [facility] - [place] [address] [place], [place] [phone] Carlota Jin MD 1 [facility], [address] [phone] 02/14/2025 6:45 EDT Treatment [facility] - [place] [address] [place], [place] [id number] Carlota Jin MD [address] [phone] 02/16/2025 6:45 EDT Treatment [facility] - [place] [address] [place], [place] [phone] Carlota Jin MD [address] [place] [phone] 02/19/2025 6:45 EDT Treatment [facility] - [place] [address] [place], [place] [phone] Carlota Jin MD [address] [place] [address], [address] [phone] 02/21/2025 6:45 EDT Treatment [facility] [address] [place], [place] [phone] Carlota Jin MD 1 [facility], [address] [phone] documented as of this encounter Procedures Procedure Name Priority Date/Time Associated Diagnosis Comments HEMODIALYSIS Routine 09/10/2023 6:37 EST ESRD (end stage renal disease) ([facility]) documented in this encounter Visit Diagnoses Diagnosis ESRD (end stage renal disease) ([facility])- Primary End stage renal disease Anemia of chronic renal failure, unspecified CKD stage Hypoalbuminemia Other disorders of plasma protein metabolism Secondary hyperparathyroidism ([facility]) Secondary hyperparathyroidism (of renal origin) documented in this encounter Administered Medications Inactive Administered Medications - up to 3 most recent administrations Medication Order MAR Action Action Date Dose Rate Site calcium carbonate (TUMS) tablet 500 mg (200 mg elemental calcium) 2 Tablet 2 Tablet, oral, ONCE IN DIALYSIS, 1 dose, On Wed09/10/23 at 0700, Routine, DialysisIndications:ESRD (end stage renal disease) ([facility]),Secondary hyperparathyroidism ([facility]) Given 09/10/2023 7:02 EST 2 Tablets epoetin ken (EPOGEN) 20,000 unit/2 mL injection 1,500 Units 1,500 Units, intravenous, ONCE IN DIALYSIS, 1 dose, On Wed09/10/23 at 0700, Routine, DialysisIndications:ESRD (end stage renal disease) ([facility]),Anemia of chronic renal failure, unspecified CKD stage Given 09/10/2023 7:02 EST 1,500 Units heparin injection 9,000 Units 9,000 Units, intravenous, ONCE IN DIALYSIS, 1 dose, On Wed09/10/23 at 0700, Routine, Dialysis, Now x1 bolus 4500 units to be given at the beginning of dialysis 1500 units/hour to be given over the course of dialysis (9000 units total). Stop 1 hour prior to end of treatment. To be administered per Policy [id number].Indications:ESRD (end stage renal disease) ([facility]) Given 09/10/2023 7:02 EST 9,000 Units LiquaCel liquid protein liquid 30 mL 30 mL, oral, ONCE IN DIALYSIS, 1 dose, On Wed09/10/23 at 0700, RoutineIndications:Hypoalbuminemi a,ESRD (end stage renal disease) ([facility]) Given 09/10/2023 7:02 EST 30 mL documented in this encounter Orders Dialysis Count Last Ordered Date First Orde red Date HEMODIALYSIS 1 09/10/2023 documented in this encounter Care Teams Hvac Design Engineer Relationship Specialty Start Date End Date Ken Greer MD [address] [place] [address] PCP - General 07/07/23 documented as of this encounter
--- OUTSIDE RECORDS SUMMARY | 2024-12-05 12:18 | XMS_ITS | Encounter Summary ---
Author Organization [facility] Address [address] [place] [address] Care Team Providers Care Transonic Engineer Name Role Phone Ken Greer MD Primary Care Provider [phone] Encounter Details Date Type Department Care Team (Latest Contact Info) Description 09/17/2023 6:45 EST Treatment [facility] [address], [place] [phone] Carlota Jin MD 1 [facility], Level [address] [place] [address] ESRD (end stage renal disease) ([facility]) (Primary Dx); Anemia of chronic renal failure, unspecified CKD stage; Hypoalbuminemia; Secondary hyperparathyroidism ([facility]) Social History Tobacco Use [...] - Temperature - - Respiratory Rate 16 09/17/2023 0635 EST Oxygen Saturation - - Inhaled Oxygen Concentration - - Weight 90.4 kg (199 lb 4.7 oz) 09/17/[address] Height - - Body Mass Index 29.43 07/08/2023 0839 EDT documented in this encounter Miscellaneous Notes * Flowsheet Note - Marcela Cox RN - 09/17/2023 1320 EST 09/17/23 1049 Post-Hemodialysis Assessment Total Blood Processed (L) 89.65 Liters On Line Clearance: spKt/V 1.36 spKt/V Dialyzer Clearance Lightly streaked Treatment UFR (ml:kg:hr) 8.35 ml:kg:hr Fluid Removed (L) 3 L Post-Dialysis Scale Weight 87.5 kg (192 lb 14.4 oz) Wheelchair Weight 0 kg (0 lb) Prosthesis Weight 1 kg (2 lb 3.3 oz) Post-Treatment Weight (kg) 86.5 Treatment Weight Change (kg) 2.9 kg Day Target Weight (kg) 86.9 Post Sitting/Lying BP 132/74 Post Sitting/Lying pulse 63 Post Standing BP 134/69 Post Standing Pulse 69 Temp 35.9 ??C (96.6 ??F) Temp src Temporal Post access assessment Bruit present: Yes Thrill Present AVF/AFG Hemostasis achieved Yes Note 2x clamps for 10 min, no bleeding, clean dry bandages applied Orientation [...] 6:45 EST Treatment [facility] [address] [place] [address] Carlota Jin MD 1 [facility], [address] [place] [address] 12/08/2024 6:45 EST Treatment [facility] [address] [place], [place] [address] Carlota Jin MD 1 [facility], [facility] 2 [place] [phone] 12/11/2024 6:45 EST Treatment [facility] [address] [place], [place] [phone] Carlota Jin MD 1 [facility], [facility] 2 [place] [phone] 12/13/2024 6:45 EST Treatment [facility] [address] [place], [place] [phone] Carlota Jin MD 1 [facility], [facility] 2 [place] [phone] 12/15/2024 6:45 EST Treatment [facility] [address] [place], [place] [phone] Carlota Jin MD 1 [facility], [address] [phone] 12/18/2024 6:45 EST Treatment [facility] [address] [place], [place] [phone] Carlota Jin MD 1 [facility], [facility] 2 [place] [phone] 12/20/2024 6:45 EST Treatment [facility] [address] [place], [place] [phone] Carlota Jin MD 1 [facility] 2 [place] [phone] 12/22/2024 6:45 EST Treatment [facility] [address] [place], [place] [phone] Carlota Jin MD 1 [facility], [facility] 2 [place] [phone] 12/25/2024 6:45 EST Treatment [facility] [address] [place], [place] [phone] Carlota Jin MD 1 [facility], [facility] 2 [place] [phone] 12/27/2024 6:45 EST Treatment [facility] [address] [place], [place] [phone] Carlota Jin MD 1 [facility], [facility] 2 [place] [phone] 12/29/2024 6:45 EST Treatment [facility] [address] [place], [place] [phone] Carlota Jin MD 1 [facility], [facility] 2 [place] [phone] 01/01/2025 6:45 EDT Treatment [facility] [address] [place], [place] [phone] Carlota Jin MD 1 [facility], [facility] 2 [place] [phone] 01/03/2025 6:45 EDT Treatment [facility] [address] [place], [place] [phone] Carlota Jin MD 1 [facility], [facility] 2 [place] [phone] 01/05/2025 6:45 EDT Treatment [facility] [address] [place], [place] [phone] Carlota Jin MD [address] [place] [address], [address] [phone] 01/08/2025 6:45 EDT Treatment [facility] [address] [place], [place] [phone] Carlota Jin MD [address] [place] [address], [address] [phone] 01/10/2025 6:45 EDT Treatment [facility] [address] [place], [place] [phone] Carlota Jin MD [address] [place] [address], [address] [phone] 01/12/2025 6:45 EDT Treatment [facility] [address] [place], [place] [phone] Carlota Jin MD [address] [place] [address], [facility] 2 [place] [phone] 01/15/2025 6:45 EDT Treatment [facility] [address] [place], [place] [id number] Carlota Jin MD 1 [facility], Level [address] [place] [phone] 01/17/2025 6:45 EDT Treatment [facility] [address] [place], [place] [address] Carlota Jin MD 1 [facility], [facility] 2 [place] [phone] 01/19/2025 6:45 EDT Treatment [facility] [address] [place], [place] [phone] Carlota Jin MD 1 [facility], [facility] 2 [place] [phone] 01/22/2025 6:45 EDT Treatment [facility] [address] [place], [place] [phone] Carlota Jin MD 1 [facility], [facility] 2 [place] [phone] 01/24/2025 6:45 EDT Treatment [facility] [address] [place], [place] [phone] Carlota Jin MD 1 [facility], [facility] 2 [place] [phone] 01/26/2025 6:45 EDT Treatment [facility] [address] [place], [place] [phone] Carlota Jin MD 1 [facility], [facility] 2 [place] [phone] 01/29/2025 6:45 EDT Treatment [facility] [address] [place], [place] [phone] Carlota Jin MD 1 [facility], [facility] 2 [place] [phone] 01/31/2025 6:45 EDT Treatment [facility] [address] [place], [place] [phone] Carlota Jin MD 1 [facility], [facility] 2 [place] [phone] 02/02/2025 6:45 EDT Treatment [facility] [address] [place] [address] Carlota Jin MD [address] [place] [address], [facility] 2 [place] [phone] 02/05/2025 6:45 EDT Treatment [facility] [address] [place], [place] [phone] Carlota Jin MD 1 [facility], [facility] 2 [place] [phone] 02/07/2025 6:45 EDT Treatment [facility] [address] [place], [place] [phone] Carlota Jin MD 1 [facility], [facility] 2 [place] [phone] 02/09/2025 6:45 EDT Treatment [facility] [address] [place], [place] [phone] Carlota Jin MD 1 [facility], [facility] 2 [place] [phone] 02/12/2025 6:45 EDT Treatment [facility] [address] [place], [place] [phone] Carlota Jin MD 1 [facility], [facility] 2 [place] [phone] 02/14/2025 6:45 EDT Treatment [facility] [address] [place] [address] Carlota Jin MD 1 [facility], [address] [phone] 02/16/2025 6:45 EDT Treatment [facility] [address] [place], [place] [phone] Carlota Jin MD 1 [facility], [address] [phone] 02/19/2025 6:45 EDT Treatment [facility] [address] [place] [address] Carlota Jin MD 1 [facility], [facility] 2 [place] [phone] 02/21/2025 6:45 EDT Treatment [facility] [address] [place], [place] [phone] Carlota Jin MD 1 [facility], [facility] 2 [place] [phone] documented as of this encounter Procedures Procedure Name Priority Date/Time Associated Diagnosis Comments HEMODIALYSIS Routine 09/17/2023 6:35 EST ESRD (end stage renal disease) ([facility]) documented in this encounter Visit Diagnoses Diagnosis ESRD (end stage renal disease) ([facility])- Primary End stage renal disease Anemia of chronic renal failure, unspecified CKD stage Hypoalbuminemia Other disorders of plasma protein metabolism Secondary hyperparathyroidism ([facility]) Secondary hyperparathyroidism (of renal origin) documented in this encounter Administered Medications Inactive Administered Medications - up to 3 most recent administrations Medication Order MAR Action Action Date Dose Rate Site calcium carbonate (TUMS) tablet 500 mg (200 mg elemental calcium) 2 Tablet 2 Tablet, oral, ONCE IN DIALYSIS, 1 dose, On Wed09/17/23 at 0700, Routine, DialysisIndications:ESRD (end stage renal disease) ([facility]),Secondary hyperparathyroidism ([facility]) Given 09/17/2023 7:03 EST 2 Tablets epoetin ken (EPOGEN) 20,000 unit/2 mL injection 1,500 Units 1,500 Units, intravenous, ONCE IN DIALYSIS, 1 dose, On Wed09/17/23 at 0700, Routine, DialysisIndications:ESRD (end stage renal disease) ([facility]),Anemia of chronic renal failure, unspecified CKD stage Given 09/17/2023 7:03 EST 1,500 Units heparin injection 9,000 Units 9,000 Units, intravenous, ONCE IN DIALYSIS, 1 dose, On Wed09/17/23 at 0700, Routine, Dialysis, Now x1 bolus 4500 units to be given at the beginning of dialysis 1500 units/hour to be given over the course of dialysis (9000 units total). Stop 1 hour prior to end of treatment. To be administered per Policy [id number].Indications:ESRD (end stage renal disease) ([facility]) Given 09/17/2023 7:03 EST 9,000 Units LiquaCel liquid protein liquid 30 mL 30 mL, oral, ONCE IN DIALYSIS, 1 dose, On Wed09/17/23 at 0700, RoutineIndications:Hypoalbuminemi a,ESRD (end stage renal disease) ([facility]) Given 09/17/2023 7:03 EST 30 mL documented in this encounter Orders Dialysis Count Last Ordered Date First Orde red Date HEMODIALYSIS 1 09/17/2023 documented in this encounter Care Teams Transonic Engineer Relationship Specialty Start Date End Date Ken Greer MD [address] [place] [address] PCP - General 07/07/23 documented as of this encounter
--- OUTSIDE RECORDS SUMMARY | 2024-12-05 12:18 | XMS_ITS | Encounter Summary ---
Author Organization [facility] Address [address] [place] [address] Care Team Providers Care Web Operations Lead Name Role Phone Ken Greer MD Primary Care Provider [phone] Encounter Details Date Type Department Care Team (Late st Contact Info) Description 09/03/2023 Documentation Visit [facility] [address] [place], [place] [phone] Melissa Crespo, RN Social History Tobacco Use [...] [facility] [address] [place] [phone] Carlota Jin MD 1 [facility], Level [address] [place] [phone] 12/08/2024 6:45 EST Treatment [facility] [address] [place] [phone] Carlota Jin MD 1 [facility], [facility] 2 [place] [phone] 12/11/2024 6:45 EST Treatment [facility] [address] [place], [place] [address] [phone] Carlota Jin MD 1 [facility], [facility] 2 [place] [phone] 12/13/2024 6:45 EST Treatment [facility] [address] [place] [address] Carlota Jin MD 1 [facility], [facility] 2 [place] [phone] 12/15/2024 6:45 EST Treatment [facility] [address] [place] [address] Carlota Jin MD 1 [facility], [facility] 2 [place] [phone] 12/18/2024 6:45 EST Treatment [facility] [address] [place] [address] Carlota Jin MD 1 [facility], [facility] 2 [place] [phone] 12/20/2024 6:45 EST Treatment [facility] [address] [place], [place] [phone] Carlota Jin MD 1 [facility], [facility] 2 [place] [phone] 12/22/2024 6:45 EST Treatment [facility] [address] [place], [place] [phone] Carlota Jin MD 1 [facility], [facility] 2 [place] [phone] 12/25/2024 6:45 EST Treatment [facility] [address] [place], [place] [phone] Carlota Jin MD 1 [facility], [facility] 2 [place] [phone] 12/27/2024 6:45 EST Treatment [facility] [address] [place], [place] [phone] Carlota Jin MD 1 [facility], [facility] 2 [place] [phone] 12/29/2024 6:45 EST Treatment [facility] [address] [place], [place] [address] Carlota Jin MD 1 [facility], [facility] 2 [place] [phone] 01/01/2025 6:45 EDT Treatment [facility] [address] [place], [place] [phone] Carlota Jin MD 1 [facility], [facility] 2 [place] [phone] 01/03/2025 6:45 EDT Treatment [facility] [address] [place], [place] [phone] Carlota Jin MD 1 [facility], [facility] 2 [place] [phone] 01/05/2025 6:45 EDT Treatment [facility] [address] [place] [address] Carlota Jin MD 1 [facility], [facility] 2 [place] [phone] 01/08/2025 6:45 EDT Treatment [facility] [address] [place], [place] [phone] Carlota Jin MD 1 [facility], [address] [phone] 01/10/2025 6:45 EDT Treatment [facility] [address] [place], [place] [phone] Carlota Jin MD 1 [facility], [address] [phone] 01/12/2025 6:45 EDT Treatment [facility] [address] [place], [place] [phone] Carlota Jin MD 1 [facility], [address] [phone] 01/15/2025 6:45 EDT Treatment [facility] [address] [place], [place] [phone] Carlota Jin MD 1 [facility], [facility] 2 [place] [phone] 01/17/2025 6:45 EDT Treatment [facility] [address] [place], [place] [phone] Carlota Jin MD 1 [facility], [facility] 2 [place] [phone] 01/19/2025 6:45 EDT Treatment [facility] [address] [place], [place] [phone] Carlota Jin MD 1 [facility], [facility] 2 [place] [phone] 01/22/2025 6:45 EDT Treatment [facility] [address] [place] [address] Carlota Jin MD 1 [facility], [facility] 2 [place] [phone] 01/24/2025 6:45 EDT Treatment [facility] [address] [place], [place] [id number] Carlota Jin MD 1 [facility], [facility] 2 [place] [phone] 01/26/2025 6:45 EDT Treatment [facility] [address] [place], [place] [phone] Carlota Jin MD 1 [facility], [facility] 2 [place] [phone] 01/29/2025 6:45 EDT Treatment [facility] [address] [place], [place] [address] Carlota Jin MD 1 [facility], [facility] 2 [place] [phone] 01/31/2025 6:45 EDT Treatment [facility] [address] [place], [place] [phone] Carlota Jin MD 1 [facility], [facility] 2 [place] [phone] 02/02/2025 6:45 EDT Treatment [facility] [address] [place], [place] [phone] Carlota Jin MD 1 [facility], [facility] 2 [place] [phone] 02/05/2025 6:45 EDT Treatment [facility] [address] [place], [place] [phone] Carlota Jin MD 1 [facility], [facility] 2 [place] [phone] 02/07/2025 6:45 EDT Treatment [facility] [address] [place], [place] [phone] Carlota Jin MD 1 [facility], [facility] 2 [place] [phone] 02/09/2025 6:45 EDT Treatment [facility] [address] [place], [place] [phone] Carlota Jin MD 1 [facility], [facility] 2 [place] [phone] 02/12/2025 6:45 EDT Treatment [facility] [address] [place], [place] [address] Carlota Jin MD 1 [facility], [facility] 2 [place] [phone] 02/14/2025 6:45 EDT Treatment [facility] [address] [place], [place] [phone] Carlota Jin MD 1 [facility], [facility] 2 [place] [phone] 02/16/2025 6:45 EDT Treatment [facility] [address] [place], [place] [phone] Carlota Jin MD 1 [facility], [facility] 2 [place] [phone] 02/19/2025 6:45 EDT Treatment [facility] [address] [place] [address] Carlota Jin MD 1 [facility], [facility] 2 [place] [phone] 02/21/2025 6:45 EDT Treatment [facility] [address] [place], [place] [phone] Carlota Jin MD 1 [facility], [facility] 2 [place] [phone] documented as of this encounter Visit Diagnoses Not on filedocumented in this encounter Care Teams Web Operations Lead Relationship Specialty Start Date End Date Ken Greer MD [place] [address] PCP - General 07/07/23 documented as of this encounter
--- OUTSIDE RECORDS SUMMARY | 2024-12-05 12:19 | XMS_ITS | Encounter Summary ---
Author Organization [facility] Address [address] [place] [address] Care Team Providers Care Fur Repairer Name Role Phone Ken Greer MD Primary Care Provider [phone] Encounter Details Date Type Department Care Team (Latest Contact Info) Description 08/27/2023 6:45 EDT Treatment [facility] [address] [place], [place] [id number] Carlota Jin MD 1 [facility], Level 2 [place] [address] ESRD (end stage renal disease) ([facility]) (Primary Dx); Anemia of chronic renal failure, unspecified CKD stage; Hypoalbuminemia; Secondary hyperparathyroidism ([facility]) Social History Tobacco Use Types Packs/Day Years [...] - Temperature - - Respiratory Rate 16 08/27/2023 0639 EDT Oxygen Saturation - - Inhaled Oxygen Concentration - - Weight 88.4 kg (194 lb 14.2 oz) 08/27/2023 0634 EDT Height - - Body Mass Index 28.78 07/08/2023 0839 EDT documented in this encounter Miscellaneous Notes * Flowsheet Note - Marcela Cox RN - 08/27/2023 1326 EDT 08/27/23 1126 Post-Hemodialysis Assessment Total Blood Processed (L) 90 Liters Dialyzer Clearance Lightly streaked Treatment UFR (ml:kg:hr) 2.78 ml:kg:hr Fluid Removed (L) 2 L Post-Dialysis Scale Weight 87.4 kg (192 lb 10.9 oz) Wheelchair Weight 0 kg (0 lb) Prosthesis Weight 0 kg (0 lb) Post-Treatment Weight (kg) 87.4 Treatment Weight Change (kg) 1 kg Day Target Weight (kg) 86.9 Post Sitting/Lying BP 152/84 Post Sitting/Lying pulse 67 Post Standing BP 128/75 Post Standing Pulse 68 Temp 36.5 ??C [...] - [place] [address] [place], [place] [id number] Carlota Jin MD 1 [facility], Level 2 [place] [address] 12/08/2024 6:45 EST Treatment [facility] - [place] [address] [address] [place] [id number] Carlota Jin MD 1 [facility], Level 2 [place] [phone] 12/11/2024 6:45 EST Treatment [facility] - [place] [address] [place], [place] [address] Carlota Jin MD 1 [facility], [facility] 2 [place] [phone] 12/13/2024 6:45 EST Treatment [facility] [place] [address] [place], [place] [id number] Carlota Jin MD 1 [facility], [facility] 2 [place] [phone] 12/15/2024 6:45 EST Treatment [facility] - [place] [address] [place], [place] [id number] Carlota Jin MD 1 [facility], [facility] 2 [place] [phone] 12/18/2024 6:45 EST Treatment [facility] - [place] [address] [place] [address] Carlota Jin MD 1 [facility], [facility] 2 [place] [phone] 12/20/2024 6:45 EST Treatment [facility] - [place] [address] [place], [place] [id number] Carlota Jin MD 1 [facility], [facility] 2 [place] [phone] 12/22/2024 6:45 EST Treatment [facility] - [place] [address] [place], [place] [id number] Carlota Jin MD 1 [facility], [facility] 2 [place] [phone] 12/25/2024 6:45 EST Treatment [facility] - [place] [address] [place], [place] [id number] Carlota Jin MD 1 [facility], [facility] 2 [place] [phone] 12/27/2024 6:45 EST Treatment [facility] [place] [address] [place], [place] [id number] Carlota Jin MD 1 [facility], [facility] 2 [place] [phone] 12/29/2024 6:45 EST Treatment [facility] - [place] [address] [place], [place] [id number] Carlota Jin MD 1 [facility], [facility] 2 [place] [phone] 01/01/2025 6:45 EDT Treatment [facility] [place] [address] [place], [place] [id number] Carlota Jin MD 1 [facility], [facility] 2 [place] [phone] 01/03/2025 6:45 EDT Treatment [facility] [place] [address] [place], [place] [id number] Carlota Jin MD 1 [facility], Level [address] [place] [phone] 01/05/2025 6:45 EDT Treatment [facility] - [place] [address] [place], [place] [id number] Carlota Jin MD 1 [facility], [facility] 2 [place] [phone] 01/08/2025 6:45 EDT Treatment [facility] [address] [place], [place] [id number] Carlota Jin MD 1 [facility], [facility] 2 [place] [phone] 01/10/2025 6:45 EDT Treatment [facility] [place] [address] [place] [address] Carlota Jin MD 1 [facility], [facility] 2 [place] [phone] 01/12/2025 6:45 EDT Treatment [facility] [address] [place], [place] [id number] Carlota Jin MD 1 [facility], [facility] 2 [place] [phone] 01/15/2025 6:45 EDT Treatment [facility] [address] [place], [place] [id number] Carlota Jin MD 1 [facility], [facility] 2 [place] [phone] 01/17/2025 6:45 EDT Treatment [facility] - [place] [address] [place], [place] [id number] Carlota Jin MD 1 [facility], [facility] 2 [place] [phone] 01/19/2025 6:45 EDT Treatment [facility] - [place] [address] [place], [place] [id number] Carlota Jin MD 1 [facility], [facility] 2 [place] [phone] 01/22/2025 6:45 EDT Treatment [facility] - [place] [address] [place], [place] [id number] Carlota Jin MD [address] [place] [address], [facility] 2 [place] [phone] 01/24/2025 6:45 EDT Treatment [facility] [place] [address] [place], [place] [id number] Carlota Jin MD 1 [facility], [facility] 2 [place] [phone] 01/26/2025 6:45 EDT Treatment [facility] [place] [address] [place], [place] [id number] Carlota Jin MD 1 [facility], [facility] 2 [place] [phone] 01/29/2025 6:45 EDT Treatment [facility] - [place] [address] [place], [place] [phone] Carlota Jin MD 1 [facility], [facility] 2 [place] [phone] 01/31/2025 6:45 EDT Treatment [facility] [place] [address] [place], [place] [id number] Carlota Jin MD 1 [facility], [facility] 2 [place] [phone] 02/02/2025 6:45 EDT Treatment [facility] [place] [address] [place] [address] [address] MD 1 [facility], [address] [phone] 02/05/2025 6:45 EDT Treatment [facility] - [place] [address] [place], [place] [id number] Carlota Jin MD 1 [facility], [address] [phone] 02/07/2025 6:45 EDT Treatment [facility] - [place] [address] [place] [address] Carl[address] Jin MD 1 [facility], [facility] 2 [place] [phone] 02/09/2025 6:45 EDT Treatment [facility] [place] [address] [place], [place] [id number] Carlota Jin MD 1 [facility], [facility] 2 [place] [phone] 02/12/2025 6:45 EDT Treatment [facility] - [place] [address] [place], [place] [id number] Carlota Jin MD [address] [phone] 02/14/2025 6:45 EDT Treatment [facility] - [place] [address] [place], [place] [id number] Carlota Jin MD [address] [phone] 02/16/2025 6:45 EDT Treatment [facility] [place] [address] [place], [place] [id number] Carlota Jin MD [address] [phone] 02/19/2025 6:45 EDT Treatment [facility] [place] [address] [place], [place] [id number] Carlota Jin MD [address] [phone] 02/21/2025 6:45 EDT Treatment [facility] [place] [address] [place], [place] [id number] Carlota Jin MD [address] [phone] documented as of this encounter Procedures Procedure Name Priority Date/Time Associated Diagnosis Comments HEMODIALYSIS Routine 08/27/2023 6:39 EDT ESRD (end stage renal disease) ([facility]) documented in this encounter Visit Diagnoses Diagnosis ESRD (end stage renal disease) ([facility])- Primary End stage renal disease Anemia of chronic renal failure, unspecified CKD stage Hypoalbuminemia Other disorders of plasma protein metabolism Secondary hyperparathyroidism ([facility]) Secondary hyperparathyroidism (of renal origin) documented in this encounter Administered Medications Inactive Administered Medications - up to 3 most recent administrations Medication Order MAR Action Action Date Dose Rate Site calcium carbonate (TUMS) tablet 500 mg (200 mg elemental calcium) 2 Tablet 2 Tablet, oral, ONCE IN DIALYSIS, 1 dose, On Wed08/27/23 at 0700, Routine, DialysisIndications:ESRD (end stage renal disease) ([facility]),Secondary hyperparathyroidism ([facility]) Given 08/27/2023 7:13 EDT 2 Tablets epoetin ken (EPOGEN) 20,000 unit/2 mL injection 1,500 Units 1,500 Units, intravenous, ONCE IN DIALYSIS, 1 dose, On Wed08/27/23 at 0700, Routine, DialysisIndications:ESRD (end stage renal disease) ([facility]),Anemia of chronic renal failure, unspecified CKD stage Given 08/27/2023 7:13 EDT 1,500 Units heparin injection 9,000 Units 9,000 Units, intravenous, ONCE IN DIALYSIS, 1 dose, On Wed08/27/23 at 0700, Routine, Dialysis, Now x1 bolus 4500 units to be given at the beginning of dialysis 1500 units/hour to be given over the course of dialysis (9000 units total). Stop 1 hour prior to end of treatment. To be administered per Policy [id number].Indications:ESRD (end stage renal disease) ([facility]) Given 08/27/2023 6:50 EDT 9,000 Units LiquaCel liquid protein liquid 30 mL 30 mL, oral, ONCE IN DIALYSIS, 1 dose, On Wed08/27/23 at 0700, RoutineIndications:Hypoalbuminemi a,ESRD (end stage renal disease) ([facility]) Given 08/27/2023 7:13 EDT 30 mL documented in this encounter Orders Dialysis Count Last Ordered Date First Orde red Date HEMODIALYSIS 1 08/27/2023 documented in this encounter Care Teams Fur Repairer Relationship Specialty Start Date End Date Ken Greer MD [address] [place] [address] PCP - General 07/07/23 documented as of this encounter
--- OUTSIDE RECORDS SUMMARY | 2024-12-05 12:19 | XMS_ITS | Encounter Summary ---
Author Organization [facility] Address [address] [place] [address] Care Team Providers Care Beverage Distiller Name Role Phone Ken Greer MD Primary Care Provider [phone] Encounter Details Date Type Department Care Team (Late st Contact Info) Description 08/06/2023 Documentation Visit [facility] [address] [place], [place] [phone] Marcela Cox, VIDYA Social History Tobacco Use [...] Progress Notes * Marcela Cox RN - 08/06/2023 0927 EDT 08/06/23 9:36 [facility] MEDICATION RECONCILIATION Medication review of home medications (prescriptions, xxaz-sip-ficfocw, herbals, vitamin/mineral/dietary (nutritional) supplements, medical marijuana, and [...] D3, 25 mcg (1,000 unit) tablet ??? famotidine (PEPCID) 40 mg tablet [...] sildenafil citrate (VIAGRA) 100 mg tablet ??? TRULICITY 0.75 mg/0.5 mL subcutaneous pen No current facility-administered medications for this visit. Marcela Cox RN documented in this encounter Plan of Treatment Upcoming Encounters Date Type Department Care Team (Late st Contact Info) Description 12/06/2024 6:45 EST Treatment [facility] [address] [place], [place] [phone] Carlota Jin MD 1 [facility], [facility] 2 [place] [address] 12/08/2024 6:45 EST Treatment [facility] [address] [place], [place] [phone] Carlota Jin MD 1 [facility], [facility] 2 [place] [address] 12/11/2024 6:45 EST Treatment [facility] - [place] [address] [place], [place] [id number] Carlota Jin MD 1 [facility], [facility] 2 [place] [phone] 12/13/2024 6:45 EST Treatment [facility] - [place] [address] [place], [place] [id number] Carlota Jin MD 1 [facility], [facility] 2 [place] [phone] 12/15/2024 6:45 EST Treatment [facility] - [place] [address] [place], [place] [id number] Carlota Jin MD 1 [facility], [facility] 2 [place] [phone] 12/18/2024 6:45 EST Treatment [facility] - [place] [address] [place], [place] [id number] Carlota Jin MD 1 [facility], [facility] 2 [place] [phone] 12/20/2024 6:45 EST Treatment [facility] - [place] [address] [place], [place] [id number] Carlota Jin MD 1 [facility], [facility] 2 [place] [phone] 12/22/2024 6:45 EST Treatment [facility] - [place] [address] [place], [place] [id number] Carlota Jin MD 1 [facility], [facility] 2 [place] [phone] 12/25/2024 6:45 EST Treatment [facility] - [place] [address] [place], [place] [id number] Carlota Jin MD 1 [facility], [facility] 2 [place] [phone] 12/27/2024 6:45 EST Treatment [facility] Dialysi [facility] [address] [place], [place] [id number] Carlota Jin MD 1 [facility], [facility] 2 [place] [phone] 12/29/2024 6:45 EST Treatment [facility] [address] [place], [place] [id number] Carlota Jin MD 1 [facility], [facility] 2 [place] [phone] 01/01/2025 6:45 EDT [facility] [address] [place] [address] Carlota Jin MD 1 [facility], [facility] 2 [place] [phone] 01/03/2025 6:45 EDT Treatment [facility] [address] [place], [place] [id number] Carlota Jin MD 1 [facility], [facility] 2 [place] [phone] 01/05/2025 6:45 EDT Treatment [facility] - [place] [address] [place], [place] [id number] Carlota Jin MD 1 [facility], [facility] 2 [place] [phone] 01/08/2025 6:45 EDT Treatment [facility] - [place] [address] [place], [place] [id number] Carlota Jin MD [address] [place] [address], [address] [phone] 01/10/2025 6:45 EDT Treatment [facility] - [place] [address] [place], [place] [id number] Carlota Jin MD [address] [place] [address], [address] [phone] 01/12/2025 6:45 EDT Treatment [facility] - [place] [address] [place], [place] [id number] Carlota Jin MD [address] [place] [address], [facility] 2 [place] [phone] 01/15/2025 6:45 EDT Treatment [facility] - [place] [address] [place], [place] [id number] Carlota Jin MD 1 [facility], [facility] 2 [place] [phone] 01/17/2025 6:45 EDT Treatment [facility] - [place] [address] [place], [place] [id number] Carlota Jin MD 1 [facility], [facility] 2 [place] [phone] 01/19/2025 6:45 EDT Treatment [facility] - [place] [address] [place], [place] [id number] Carlota Jin MD 1 [facility], [facility] 2 [place] [phone] 01/22/2025 6:45 EDT Treatment [facility] - [place] [address] [place], [place] [id number] Carlota Jin MD 1 [facility], [facility] 2 [place] [phone] 01/24/2025 6:45 EDT Treatment [facility] - [place] [address] [place] [address] Carlota iJn MD 1 [facility], [facility] 2 [place] [phone] 01/26/2025 6:45 EDT Treatment [facility] - [place] [address] [place] [address] Carlota Jin MD 1 [facility], [facility] 2 [place] [phone] 01/29/2025 6:45 EDT Treatment [facility] - [place] [address] [place], [place] [id number] Carlota Jin MD 1 [facility], [facility] 2 [place] [phone] 01/31/2025 6:45 EDT Treatment [facility] - [place] [address] [place], [place] [id number] Carlota Jin MD 1 [facility], [facility] 2 [place] [phone] 02/02/2025 6:45 EDT Treatment [facility] - [place] [address] [place], [place] [id number] Carlota Jin MD 1 [facility], [facility] 2 [place] [phone] 02/05/2025 6:45 EDT Treatment [facility] D[facility] - [place] [address] [place] [address] Carlota Jin MD 1 [facility], [address] [phone] 02/07/2025 6:45 EDT Treatment [facility] Dialys[facility] - [place] [address] [place], [place] [id number] Carlota Jin MD 1 [facility], [facility] 2 [place] [phone] 02/09/2025 6:45 EDT Treatment [facility] - [place] [address] [place], [place] [id number] Carlota Jin MD 1 [facility], [facility] 2 [place] [phone] 02/12/2025 6:45 EDT Treatment [facility] - [place] [address] [place] [address] Carlota Jin MD [address] [place] [phone] 02/14/2025 6:45 EDT Treatment [facility] - [place] [address] [place], [place] [id number] Carlota Jin MD [address] [place] [address], [address] [phone] 02/16/2025 6:45 EDT Treatment [facility] D[facility] - [place] [address] [place], [place] [id number] Carlota Jin MD [address] [place] [phone] 02/19/2025 6:45 EDT Treatment [facility] - [place] [address] [place], [place] [id number] Carlota Jin MD [address] [place] [phone] 02/21/2025 6:45 EDT Treatment [facility] - [place] [address] [place], [place] [id number] Carlota Jin MD [address] [place] [phone] documented as of this encounter Visit Diagnoses Not on filedocumented in this encounter Discontinued Medications Medication Sig Discontinue Reason Start Date End Da te sevelamer carbonate (RENVELA) 800 mg tablet Therapy completed 07/02/20232022 hydroCHLOROthiazide (HYDRODIURIL) 25 mg tablet Stop per [address] Jin. Therapy completed 03/16/2023 08/06/2023 magnesium oxide (MAG-OX) 400 mg (241.3 mg magnesium) tablet Take 1 Tablet by mouth daily. Therapy completed 08/06/2023 nortriptyline (PAMELOR) 25 mg capsule Take 1 Capsule by mouth at bedtime. Therapy completed 08/06/2023 BABY ASPIRIN ORAL Take 81 mg by mouth daily. Therapy completed 08/06/2023 documented as of this encounter Historical Medications * This list may reflect changes made after this encounter. insulin lispro (HUMALOG KWIKPEN INSULIN) 100 unit/mL injectable pen Inject 10-20 Units into the skin daily. 09/29/2023 nicotine (NICODERM CQ) 21 mg/[address] 1 Patch onto the skin daily. 09/29/2023 sildenafil citrate (VIAGRA) 100 mg tablet Take 1 Tablet by mouth as needed for Erectile Dysfunction. 09/29/2023 furosemide (LASIX) 20 mg tablet Take 1 Tablet by mouth 2 times daily. 11/10/2023 added in this encounter Care Teams Beverage Distiller Relationship Specialty Start Date End Date [place] [address] PCP - General 07/07/23 documented as of this encounter
--- OUTSIDE RECORDS SUMMARY | 2024-12-05 12:19 | XMS_ITS | Encounter Summary ---
Author Organization [facility] Address [address] [place] [address] Care Team Providers Care Grocery Clerk Checking Name Role Phone Ken Greer MD Primary Care Provider [phone] Encounter Details Date Type Department Care Team (Latest Contact Info) Description 08/20/2023 6:45 EDT Treatment [facility] [address] [place], [place] [id number] Carlota Jin MD 1 [facility], Level 2 [place] [address] ESRD (end stage renal disease) ([facility]) (Primary Dx); Anemia of chronic renal failure, unspecified CKD stage; Hypoalbuminemia; Secondary hyperparathyroidism ([facility]) Social History Tobacco Use [...] - Temperature - - Respiratory Rate 16 08/20/2023 0637 EDT Oxygen Saturation - - Inhaled Oxygen Concentration - - Weight 90.5 kg (199 lb 8.3 oz) 08/20/2023 0637 E DT Height - - Body Mass Index 29.46 07/08/2023 0839 EDT documented in this encounter Miscellaneous Notes * Flowsheet Note - Marcela Cox RN - 08/20/2023 4374 EDT 08/20/23 1024 Post-Hemodialysis Assessment Total Blood Processed (L) 79.96 Liters On Line Clearance: spKt/V 1.26 spKt/V Dialyzer Clearance Lightly streaked Treatment UFR (ml:kg:hr) 10.84 ml:kg:hr Critline refill Not done Fluid Removed (L) 3.69 L Post-Dialysis Scale Weight 87.1 kg (192 lb 0.3 oz) Wheelchair Weight 0 kg (0 lb) Prosthesis Weight 0 kg (0 lb) Post-Treatment Weight (kg) 87.1 Treatment Weight Change (kg) 3.4 kg Day Target Weight (kg) 87 Post Sitting/Lying BP 155/74 Post Sitting/Lying pulse 66 Post Standing BP 110/59 Post Standing Pulse 68 Temp 36.7 ??C (98.1 ??F) Temp src Temporal Post access assessment Bruit present: Yes Thrill Present AVF/AFG Hemostasis achieved Yes Note Patient held for 10mins with blue clamps Orientation Alert and Oriented x3 Yes Time Yes Place Yes Person Yes Cooperative Yes Disoriented No Discharge Ambulation Methods Ambulatory with assistive device Ambulation device Cane Wrap up items Patient Response to Treatment Removed 3.7L out of original 4L UF goal, pt rinseback performed during last 1/2 hr of tx as pt was c/o headache and stomach upset. This improved somewhat post rinseback. Comments VSS post tx. documented in this encounter Plan of Treatment Upcoming Encounters Date Type Department Care Team (Late st Contact Info) Description 12/06/2024 6:[address] [facility] [place] [address] [place] [place] [address] Carlota Jin MD 1 [facility], Level [address] [place] [address] 12/08/2024 6:[address] [facility] [place] [address] [place], [place] [id number] Carlota Jin MD 1 [facility], [facility] 2 [place] [phone] 12/11/2024 6:[address] [facility] [place] [address] [place], [place] [id number] Carlota Jin MD 1 [facility], [facility] 2 [place] [phone] 12/13/2024 6:[address] [facility] [place] [address] [place], [place] [id number] Carlota Jin MD 1 [facility], [facility] 2 [place] [phone] 12/15/2024 6:[address] [facility] [place] [address] [place], [place] [id number] Carlota Jin MD 1 [facility], [facility] 2 [place] [phone] 12/18/2024 6:[address] [facility] [place] [address] [place], [place] [id number] Carlota Jin MD 1 [facility], [facility] 2 [place] [phone] 12/20/2024 6:[address] [facility] [address] [place], [place] [id number] Carlota Jin MD 1 [facility], [facility] 2 [place] [phone] 12/22/2024 6:[address] [facility] [place] [address] [place] [address] Carlota Jin MD 1 [facility], [facility] 2 [place] [phone] 12/25/2024 6:[address] [facility] [place] [address] [place] [address] Carlota Jin MD 1 [facility], [facility] 2 [place] [phone] 12/27/2024 6:[address] [facility] [place] [address] [place] [address] Carlota Jin MD 1 [facility], [facility] 2 [place] [phone] 12/29/2024 6:[address] [facility] [place] [address] [place] [address] Carlota Jin MD 1 [facility], [facility] 2 [place] [phone] 01/01/2025 6:[address] [facility] [place] [address] [place], [place] [id number] Carlota Jin MD 1 [facility], [facility] 2 [place] [phone] 01/03/2025 6:[address] [facility] [place] [address] [place], [place] [address] Carlota Jin MD 1 [facility], [facility] 2 [place] [phone] 01/05/2025 6:[address] [facility] [place] [address] [place], [place] [id number] Carlota Jin MD [address] [place] [address], [facility] 2 [place] [phone] 01/08/2025 6:[address] [facility] [place] [address] [place] [address] Carlota Jin MD [address] [place] [address], [facility] 2 [place] [phone] 01/10/2025 6:[address] [facility] [place] [address] [place] [address] Carlota Jin MD [address] [place] [address], [facility] 2 [place] [phone] 01/12/2025 6:[address] [facility] [place] [address] [place], [place] [id number] Carlota Jin MD 1 [facility], [facility] 2 [place] [phone] 01/15/2025 6:[address] [facility] [place] [address] [place], [place] [address] Carlota Jin MD 1 [facility], [address] [phone] 01/17/2025 6:[address] [facility] [place] [address] [place], [place] [id number] Carlota Jin MD 1 [facility], [address] [phone] 01/19/2025 6:[address] [facility] [place] [address] [place], [place] [id number] Carlota Jin MD 1 [facility], [address] [phone] 01/22/2025 6:[address] [facility] [place] [address] [place], [place] [id number] Carlota Jin MD [address] [phone] 01/24/2025 6:[address] [facility] [place] [address] [place], [place] [id number] Carlota Jin MD [address] [phone] 01/26/2025 6:[address] [facility] [place] [address] [place], [place] [id number] Carlota Jin MD 1 [facility], [address] [phone] 01/29/2025 6:[address] [facility] [place] [address] [place], [place] [id number] Carlota Jin MD 1 [facility], [facility] 2 [place] [phone] 01/31/2025 6:[address] [facility] [place] [address] [place], [place] [id number] Carlota Jin MD 1 [facility], [facility] 2 [place] [phone] 02/02/2025 6:[address] [facility] [place] [address] [place], [place] [id number] Carlota Jin MD 1 [facility], [address] [phone] 02/05/2025 6:[address] [facility] [place] [address] [place] [address] Carlota Jin MD 1 [facility], [facility] 2 [place] [phone] 02/07/2025 6:[address] [facility] [place] [address] [place], [place] [id number] Carlota Jin MD 1 [facility], [facility] 2 [place] [phone] 02/09/2025 6:[address] [facility] [place] [address] [place], [place] [id number] Carlota Jin MD 1 [facility], [facility] 2 [place] [phone] 02/12/2025 6:[address] [facility] [place] [address] [place], [place] [id number] Carlota Jin MD 1 [facility], [address] [phone] 02/14/2025 6:[address] [facility] [place] [address] [place], [place] [id number] Carlota Jin MD 1 [facility], [address] [phone] 02/16/2025 6:[address] [facility] [place] [address] [place], [place] [id number] Carlota Jin MD 1 [facility], [address] [phone] 02/19/2025 6:[address] [facility] [place] [address] [place], [place] [id number] Carlota Jin MD 1 [facility], [address] [phone] 02/21/2025 6:[address] [facility] [place] [address] [place], [place] [id number] Carlota Jin MD 1 [facility], Level [address] [place] [phone] documented as of this encounter Procedures Procedure Name Priority Date/Time Associated Diagnosis Comments HEMODIALYSIS Routine 08/20/2023 6:37 EDT ESRD (end stage renal disease) ([facility]) documented in this encounter Visit Diagnoses Diagnosis ESRD (end stage renal disease) ([facility])- Primary End stage renal disease Anemia of [...] oral, ONCE IN DIALYSIS, 1 dose, On Wed08/20/23 at 0700, Routine, DialysisIndications:ESRD (end stage renal disease) ([facility]),Secondary hyperparathyroidism ([facility]) Given 08/20/2023 6:51 EDT 2 Tablets epoetin ken (EPOGEN) 20,000 unit/2 mL injection 1,500 Units 1,500 Units, intravenous, ONCE IN DIALYSIS, 1 dose, On Wed08/20/23 at 0700, Routine, DialysisIndications:ESRD (end stage renal disease) ([facility]),Anemia of chronic renal failure, unspecified CKD stage Given 08/20/2023 6:52 EDT 1,500 Units heparin injection 9,000 Units 9,000 Units, intravenous, ONCE IN DIALYSIS, 1 dose, On Wed08/20/23 at 0700, Routine, Dialysis, Now x1 bolus 4500 units to be given at the beginning of dialysis 1500 units/hour to be given over the course of dialysis (9000 units total). Stop 1 hour prior to end of treatment. To be administered per Policy [id number].Indications:ESRD (end stage renal disease) ([facility]) Given 08/20/2023 6:52 EDT 9,000 Units LiquaCel liquid protein liquid 30 mL 30 mL, oral, ONCE IN DIALYSIS, 1 dose, On Wed08/20/23 at 0700, RoutineIndications:Hypoalbuminemi a,ESRD (end stage renal disease) ([facility]) Given 08/20/2023 6:52 EDT 30 mL documented in this encounter Orders Dialysis Count Last Ordered Date First Orde red Date HEMODIALYSIS 1 08/20/2023 documented in this encounter Care Teams Grocery Clerk Checking Relationship Specialty Start Date End Date Ken Greer MD [address] [place] [address] PCP - General 07/07/23 documented as of this encounter
--- OUTSIDE RECORDS SUMMARY | 2024-12-05 12:19 | XMS_ITS | Encounter Summary ---
Author Organization [facility] Address [address] [place] [address] Care Team Providers Care Specification Consultant Name Role Phone Ken Greer MD Primary Care Provider Encounter Details Date Type Department Care Team (Late st Contact Info) Description 08/20/[address] [facility] [address] [place], [place] [address] Melissa Crespo, RN Social History Tobacco Use [...] Info) Description 12/06/2024 6:[address] [facility] [place] [address] [place] [id number] Carlota Jin MD 1 [facility], Level [address] [place] [phone] 12/08/2024 6:[address] [facility] [address] [place] [id number] Carlota Jin MD 1 [facility], [facility] 2 [place] [phone] 12/11/2024 6:[address] [facility] [place] [address] [place], [place] [address] [phone] MD [address] [facility], [facility] 2 [place] [phone] 12/13/2024 6:[address] [facility] [place] [address] [place] [address] Carlota Jin MD 1 [facility], [facility] 2 [place] [phone] 12/15/2024 6:[address] [facility] [place] [address] [place] [address] Carlota Jin MD 1 [facility], [facility] 2 [place] [phone] 12/18/2024 6:[address] [facility] [place] [address] [place] [address] Carlota Jin MD 1 [facility], [facility] [address] [place] [phone] 12/20/2024 6:[address] [facility] [place] [address] [place], [place] [id number] Carlota Jin MD 1 [facility], [facility] [address] [place] [phone] 12/22/2024 6:[address] [facility] [place] [address] [place], [place] [id number] Carlota Jin MD 1 [facility], [facility] [address] [place] [phone] 12/25/2024 6:[address] [facility] [place] [address] [place], [place] [id number] Carlota Jin MD 1 [facility], [facility] [address] [place] [phone] 12/27/2024 6:[address] [facility] [place] [address] [place], [place] [phone] Carlota Jin MD 1 [facility], [facility] 2 [place] [phone] 12/29/2024 6:[address] [facility] [place] [address] [place], [place] [address] Carlota Jin MD 1 [facility], [facility] 2 [place] [phone] 01/01/2025 6:[address] [facility] [place] [address] [place], [place] [phone] Carlota Jin MD 1 [facility], [facility] 2 [place] [phone] 01/03/2025 6:[address] [facility] [place] [address] [place], [place] [phone] Carlota Jin MD 1 [facility], [facility] 2 [place] [phone] 01/05/2025 6:[address] [facility] [place] [address] [place] [address] Carlota Jin MD 1 [facility], [facility] 2 [place] [phone] 01/08/2025 6:[address] [facility] [place] [address] [place], [place] [phone] Carlota Jin MD 1 [facility], [address] [phone] 01/10/2025 6:[address] [facility] [place] [address] [place], [place] [phone] Carlota Jin MD 1 [facility], [address] [phone] 01/12/2025 6:[address] [facility] [place] [address] [place], [place] [address] Carlota Jin MD 1 [facility], [address] [phone] 01/15/2025 6:[address] [facility] [place] [address] [place], [place] [phone] Carlota Jin MD 1 [facility], [facility] 2 [place] [phone] 01/17/2025 6:[address] [facility] [place] [address] [place], [place] [phone] Carlota Jin MD 1 [facility], [facility] 2 [place] [phone] 01/19/2025 6:[address] [facility] [place] [address] [place], [place] [phone] Carlota Jin MD 1 [facility], [facility] 2 [place] [phone] 01/22/2025 6:[address] [facility] [place] [address] [place] [address] Carlota Jin MD 1 [facility], [facility] 2 [place] [phone] 01/24/2025 6:[address] [facility] [place] [address] [place], [place] [address] Carlota Jin MD 1 [facility], [facility] 2 [place] [phone] 01/26/2025 6:[address] [facility] [place] [address] [place], [place] [phone] Carlota Jin MD 1 [facility], [facility] 2 [place] [phone] 01/29/2025 6:[address] [facility] [place] [address] [place], [place] [address] Carlota Jin MD 1 [facility], [facility] 2 [place] [phone] 01/31/2025 6:[address] [facility] [place] [address] [place], [place] [phone] Carlota Jin MD 1 [facility], [facility] 2 [place] [phone] 02/02/2025 6:[address] [facility] [place] [address] [place], [place] [address] Carlota Jin MD 1 [facility], [facility] 2 [place] [phone] 02/05/2025 6:[address] [facility] [place] [address] [place], [place] [phone] Carlota Jin MD 1 [facility], [facility] 2 [place] [phone] 02/07/2025 6:[address] [facility] [place] [address] [place], [place] [phone] Carlota Jin MD 1 [facility], [facility] 2 [place] [phone] 02/09/2025 6:[address] [facility] [place] [address] [place], [place] [phone] Carlota Jin MD 1 [facility], [facility] [address] [place] [phone] 02/12/2025 6:[address] [facility] [place] [address] [place], [place] [address] Carlota Jin MD 1 [facility], [facility] 2 [place] [phone] 02/14/2025 6:[address] [facility] [place] [address] [place], [place] [address] Carlota Jin MD 1 [facility], [facility] 2 [place] [phone] 02/16/2025 6:[address] [facility] [place] [address] [place], [place] [phone] Carlota Jin MD 1 [facility], [facility] 2 [place] [phone] 02/19/2025 6:[address] [facility] [place] [address] [place] [address] Carlota Jin MD 1 [facility], [facility] 2 [place] [phone] 02/21/2025 6:[address] [facility] [place] [address] [place], [place] [phone] Carlota Jin MD 1 [facility], [facility] [address] [place] [phone] documented as of this encounter Visit Diagnoses Not on filedocumented in this encounter Care Teams Specification Consultant Relationship Specialty Start Date End Date Ken Greer [place] [address] PCP - General 07/07/23 documented as of this encounter
--- OUTSIDE RECORDS SUMMARY | 2024-12-05 12:19 | XMS_ITS | Encounter Summary ---
Author Organization [facility] Address [address] [place] [address] Care Team Providers Care Dining Manager Name Role Phone Ken Greer MD Primary Care Provider [phone] Encounter Details Date Type Department Care Team (Latest Contact Info) Description 08/23/2023 6:45 EDT Treatment [facility] [address] [place], [place] [id number] Carlota Jin MD 1 [facility], Level [address] [place] [address] ESRD (end stage renal disease) ([facility]) (Primary Dx); Anemia of chronic renal failure, unspecified CKD stage; Hypoalbuminemia; Secondary hyperparathyroidism ([facility]) Social History Tobacco Use Types Packs/Day [...] - Temperature - - Respiratory Rate 16 08/23/2023 0714 EDT Oxygen Saturation - - Inhaled Oxygen Concentration - - Weight 90.6 kg (199 lb 11.8 oz) 08/23/2023 0709 EDT Height - - Body Mass Index 29.5 07/08/2023 0839 EDT documented in this encounter Miscellaneous Notes * Flowsheet Note - Marcela Cox RN - 08/23/2023 1328 EDT 08/23/23 1059 Post-Hemodialysis Assessment Total Blood Processed (L) 76.4 Liters On Line Clearance: spKt/V 1.19 spKt/V Dialyzer Clearance Lightly streaked Treatment UFR (ml:kg:hr) 9.27 ml:kg:hr Critline refill Not done Fluid Removed (L) 3.02 L Post-Dialysis Scale Weight 87.7 kg (193 lb 5.5 oz) Wheelchair Weight 0 kg (0 lb) Prosthesis Weight 0 kg (0 lb) Post-Treatment Weight (kg) 87.7 Treatment Weight Change (kg) 2.9 kg Day Target Weight (kg) 87.6 Post Sitting/Lying BP 138/75 Post Sitting/Lying pulse 63 Post Standing BP 117/62 Post Standing Pulse 65 Temp 36.3 ??C (97.3 ??F) Temp [...] Contact Info) Description 12/06/2024 6:45 EST Treatment [facility] [address] [place], [place] [id number] Carlota Jin MD [address] [place] [address], Level [address] [place] [address] 12/08/2024 6:45 EST Treatment [facility] - [place] [address] [place], [place] [id number] Carlota Jin MD 1 [facility], [facility] [address] [place] [phone] 12/11/2024 6:45 EST Treatment [facility] - [place] [address] [place], [place] [id number] Carlota Jin MD 1 [facility], [facility] [address] [place] [phone] 12/13/2024 6:45 EST Treatment [facility] - [place] [address] [place], [place] [id number] Carlota Jin MD 1 [facility], [facility] [address] [place] [phone] 12/15/2024 6:45 EST Treatment [facility] - [place] [address] [place], [place] [id number] Carlota Jin MD 1 [facility], [address] [phone] 12/18/2024 6:45 EST Treatment [facility] - [place] [address] [place], [place] [id number] Carlota Jin MD 1 [facility], [facility] [address] [place] [phone] 12/20/2024 6:45 EST Treatment [facility] - [place] [address] [place], [place] [id number] Carlota Jin MD 1 [facility], [facility] [address] [place] [phone] 12/22/2024 6:45 EST Treatment [facility] - [place] [address] [place], [place] [id number] Carlota Jin MD 1 [facility], [facility] [address] [place] [phone] 12/25/2024 6:45 EST Treatment [facility] - [place] [address] [place], [place] [id number] Carlota Jin MD 1 [facility], [facility] [address] [place] [phone] 12/27/2024 6:45 EST Treatment [facility] [address] [place], [place] [id number] Carlota Jin MD 1 [facility], [facility] [address] [place] [phone] 12/29/2024 6:45 EST Treatment [facility] [address] [place], [place] [id number] Carlota Jin MD 1 [facility], [facility] [address] [place] [phone] 01/01/2025 6:45 EDT Treatment [facility] [address] [place], [place] [id number] Carlota Jin MD 1 [facility], [facility] [address] [place] [phone] 01/03/2025 6:45 EDT Treatment [facility] - [place] [address] [place], [place] [id number] Carlota Jin MD 1 [facility], [facility] [address] [place] [phone] 01/05/2025 6:45 EDT Treatment [facility] - [place] [address] [place], [place] [id number] Carlota Jin MD 1 [facility], [address] [phone] 01/08/2025 6:45 EDT Treatment [facility] - [place] [address] [place], [place] [id number] Carlota Jin MD 1 [facility], [address] [phone] 01/10/2025 6:45 EDT Treatment [facility] - [place] [address] [place], [place] [id number] Carlota Jin MD 1 [facility], [address] [phone] 01/12/2025 6:45 EDT Treatment [facility] - [place] [address] [place], [place] [id number] Carlota Jin MD 1 [facility], [facility] [address] [place] [phone] 01/15/2025 6:45 EDT Treatment [facility] - [place] [address] [place], [place] [id number] Carlota Jin MD 1 [facility], [facility] [address] [place] [phone] 01/17/2025 6:45 EDT Treatment [facility] - [place] [address] [place], [place] [id number] Carlota Jin MD 1 [facility], [facility] [address] [place] [phone] 01/19/2025 6:45 EDT Treatment [facility] - [place] [address] [place], [place] [id number] Carlota Jin MD 1 [facility], [facility] [address] [place] [phone] 01/22/2025 6:45 EDT Treatment [facility] - [place] [address] [place], [place] [id number] Carlota Jin MD 1 [facility], [facility] [address] [place] [phone] 01/24/2025 6:45 EDT Treatment [facility] - [place] [address] [place] [id number] [address] MD [address] [facility], [facility] [address] [place] [phone] 01/26/2025 6:45 EDT Treatment [facility] - [place] [address] [place], [place] [id number] Carlota Jin MD 1 [facility], [facility] [address] [place] [phone] 01/29/2025 6:45 EDT Treatment [facility] - [place] [address] [place], [place] [id number] Carlota Jin MD 1 [facility], [facility] [address] [place] [phone] 01/31/2025 6:45 EDT Treatment [facility] - [place] [address] [place], [place] [id number] Carlota Jin MD 1 [facility], [address] [phone] 02/02/2025 6:45 EDT Treatment [facility] - [place] [address] [place], [place] [id number] Carlota Jin MD [address] [place] [address], [address] [phone] 02/05/2025 6:45 EDT Treatment [facility] - [place] [address] [place], [place] [id number] Carlota Jin MD [address] [place] [address], [facility] [address] [place] [phone] 02/07/2025 6:45 EDT Treatment [facility] - [place] [address] [place], [place] [id number] Carlota Jin MD 1 [facility], [facility] [address] [place] [phone] 02/09/2025 6:45 EDT Treatment [facility] - [place] [address] [place], [place] [id number] Carlota Jin MD 1 [facility], [facility] [address] [place] [phone] 02/12/2025 6:45 EDT Treatment [facility] - [place] [address] [place], [place] [id number] Carlota Jin MD 1 [facility], [facility] [address] [place] [phone] 02/14/2025 6:45 EDT Treatment [facility] - [place] [address] [place], [place] [id number] Carlota Jin MD 1 [facility], [facility] [address] [place] [phone] 02/16/2025 6:45 EDT Treatment [facility] - [place] [address] [place], [place] [id number] Carlota Jin MD 1 [facility], [facility] [address] [place] [phone] 02/19/2025 6:45 EDT [facility] [address] [place], [place] [id number] Carlota Jin MD 1 [facility], [facility] [address] [place] [phone] 02/21/2025 6:45 EDT Treatment [facility] [place] [address] [place], [place] [id number] Carlota Jin MD 1 [facility], [facility] [address] [place] [phone] documented as of this encounter Procedures Procedure Name Priority Date/Time Associated Diagnosis Comments HEMODIALYSIS Routine 08/23/2023 7:14 EDT ESRD (end stage renal disease) ([facility]) documented in this encounter Visit Diagnoses Diagnosis ESRD (end stage renal disease) ([facility])- Primary End stage renal disease Anemia of chronic renal failure, unspecified CKD stage Hypoalbuminemia Other disorders of plasma protein metabolism Secondary hyperparathyroidism ([facility]) Secondary hyperparathyroidism (of renal origin) documented in this encounter Administered Medications Inactive Administered Medications - up to 3 most recent administrations Medication Order MAR Action Action Date Dose Rate Site calcium carbonate (TUMS) tablet 500 mg (200 mg elemental calcium) 2 Tablet 2 Tablet, oral, ONCE IN DIALYSIS, 1 dose, On Wed08/23/23 at 0730, Routine, DialysisIndications:ESRD (end stage renal disease) ([facility]),Secondary hyperparathyroidism ([facility]) Given 08/23/2023 7:32 EDT 2 Tablets epoetin ken (EPOGEN) 20,000 unit/2 mL injection 1,500 Units 1,500 Units, intravenous, ONCE IN DIALYSIS, 1 dose, On Wed08/23/23 at 0730, Routine, DialysisIndications:ESRD (end stage renal disease) ([facility]),Anemia of chronic renal failure, unspecified CKD stage Given 08/23/2023 7:32 EDT 1,500 Units heparin injection 9,000 Units 9,000 Units, intravenous, ONCE IN DIALYSIS, 1 dose, On 08/23/23 at 0730, Routine, Dialysis, Now x1 bolus 4500 units to be given at the beginning of dialysis 1500 units/hour to be given over the course of dialysis (9000 units total). Stop 1 hour prior to end of treatment. To be administered per Policy [id number].Indications:ESRD (end stage renal disease) ([facility]) Given 08/23/2023 7:32 EDT 9,000 Units LiquaCel liquid protein liquid 30 mL 30 mL, oral, ONCE IN DIALYSIS, 1 dose, On Wed08/23/23 at 0730, RoutineIndications:Hypoalbuminemi a,ESRD (end stage renal disease) ([facility]) Given 08/23/2023 7:32 EDT 30 mL documented in this encounter Orders Dialysis Count Last Ordered Date First Orde red Date HEMODIALYSIS 1 08/23/2023 documented in this encounter Care Teams Dining Manager Relationship Specialty Start Date End Date Ken Greer MD [address] [place] [address] PCP - General 07/07/23 documented as of this encounter
--- OUTSIDE RECORDS SUMMARY | 2024-12-05 12:19 | XMS_ITS | Encounter Summary ---
Author Organization [facility] Address [address] [place] [address] Care Team Providers Care Dancer Or Choreographer Name Role Phone Ken Greer MD Primary Care Provider [phone] Encounter Details Date Type Department Care Team (Latest Contact Info) Description 08/11/2023 6:45 EDT Treatment [facility] [address], [place] [id number] Carlota Jin MD 1 [facility], Level [address] [place] [address] ESRD (end stage renal disease) ([facility]) (Primary Dx); Anemia of chronic renal failure, unspecified CKD stage; Hypoalbuminemia; Secondary hyperparathyroidism ([facility]) Social History Tobacco Use [...] - Temperature - - Respiratory Rate 16 08/11/2023 0632 EDT Oxygen Saturation - - Inhaled Oxygen Concentration - - Weight 91.2 kg (201 lb 1 oz) 08/11/2023 0627 EDT Height - - Body Mass Index 29.69 07/08/2023 0839 EDT documented in this encounter Miscellaneous Notes * Flowsheet Note - Marcela Cox RN - 08/11/2023 1347 EDT 08/11/23 1052 Post-Hemodialysis Assessment Total Blood Processed (L) 89.89 Liters On Line Clearance: spKt/V 1.49 spKt/V Dialyzer Clearance Lightly streaked Treatment UFR (ml:kg:hr) 7.06 ml:kg:hr Final Critline Profile (%/hr) -2.33 Final Profile Profile A Critline refill Negative (H1: 31.5 H2: 31.2) Fluid Removed (L) 3.5 L Post-Dialysis Scale Weight 87.8 kg (193 lb 9 oz) Wheelchair Weight 0 kg (0 lb) Prosthesis Weight 0 kg (0 lb) Post-Treatment Weight (kg) 87.8 Treatment Weight Change (kg) 2.5 kg Day Target Weight (kg) 87.3 Post Sitting/Lying BP 163/77 Post Sitting/Lying pulse 63 Post Standing BP 137/73 Post Standing Pulse 69 Temp 36.4 ??C (97.5 ??F) Temp [...] Treatment [facility] [place] [address] [place] [address] Carlota Jin MD 1 [facility], [address] [place] [phone] 12/08/2024 6:45 EST Treatment [facility] [place] [address] [place], [place] [id number] Carlota Jin MD 1 [facility], [address] [place] [phone] 12/11/2024 6:45 EST Treatment [facility] [place] [address] [place] [address] Carlota Jin MD 1 [facility], [facility] [address] [place] [phone] 12/13/2024 6:45 EST Treatment [facility] [place] [address] [place], [place] [address] [phone] Carlota Jin MD 1 [facility], [facility] [address] [place] [phone] 12/15/2024 6:45 EST Treatment [facility] [place] [address] [place] [address] Carlota Jin MD 1 [facility], [facility] [address] [place] [phone] 12/18/2024 6:45 EST Treatment [facility] [place] [address] [place], [place] [id number] Carlota Jin MD 1 [facility], [address] [place] [phone] 12/20/2024 6:45 EST Treatment [facility] [place] [address] [place], [place] [address] Carlota Jin MD 1 [facility], [facility] [address] [place] [phone] 12/22/2024 6:45 EST Treatment [facility] [place] [address] [place], [place] [address] [phone] Carlota Jin MD 1 [facility], [facility] 2 [place] [phone] 12/25/2024 6:45 EST Treatment [facility] [place] [address] [place], [place] [id number] Carlota Jin MD 1 [facility], [address] [phone] 12/27/2024 6:45 EST Treatment [facility] [place] [address] [place], [place] [id number] Carlota Jin MD 1 [facility], [address] [phone] 12/29/2024 6:45 EST Treatment [facility] [place] [address] [place], [place] [id number] Carlota Jin MD 1 [facility], [facility] 2 [place] [phone] 01/01/2025 6:45 EDT Treatment [facility] [place] [address] [place], [place] [id number] Carlota Jin MD 1 [facility], [facility] 2 [place] [phone] 01/03/2025 6:45 EDT Treatment [facility] [place] [address] [place], [place] [id number] Carlota Jin MD 1 [facility], [facility] 2 [place] [phone] 01/05/2025 6:45 EDT Treatment [facility] [place] [address] [place], [place] [phone] Carlota Jin MD 1 [facility], [facility] 2 [place] [phone] 01/08/2025 6:45 EDT Treatment [facility] [place] [address] [place] [address] Carlota Jin MD [address] [place] [address], [address] [phone] 01/10/2025 6:45 EDT Treatment [facility] [place] [address] [place], [place] [phone] Carlota Jin MD [address] [place] [address], [facility] [address] [place] [phone] 01/12/2025 6:45 EDT Treatment [facility] [place] [address] [place], [place] [id number] Carlota Jin MD 1 [facility], [facility] 2 [place] [phone] 01/15/2025 6:45 EDT Treatment [facility] [place] [address] [place], [place] [address] Carlota Jin MD 1 [facility], [facility] 2 [place] [phone] 01/17/2025 6:45 EDT Treatment [facility] [place] [address] [place], [place] [phone] Carlota Jin MD 1 [facility], [facility] 2 [place] [phone] 01/19/2025 6:45 EDT Treatment [facility] [place] [address] [place], [place] [phone] Carlota Jin MD 1 [facility], [address] [phone] 01/22/2025 6:45 EDT Treatment [facility] [place] [address] [place], [place] [id number] Carlota Jin MD [address] [phone] 01/24/2025 6:45 EDT Treatment [facility] [place] [address] [place], [place] [phone] Carlota Jin MD [address] [phone] 01/26/2025 6:45 EDT Treatment [facility] [place] [address] [place], [place] [phone] Carlota Jin MD 1 [facility] 2 [place] [phone] 01/29/2025 6:45 EDT Treatment [facility] [place] [address] [place], [place] [address] Carlota Jin MD 1 [facility], [facility] 2 [place] [phone] 01/31/2025 6:45 EDT Treatment [facility] [place] [address] [place], [place] [id number] Carlota Jin MD 1 [facility], [facility] 2 [place] [phone] 02/02/2025 6:45 EDT Treatment [facility] [place] [address] [place], [place] [phone] Carlota Jin MD 1 [facility], [facility] 2 [place] [phone] 02/05/2025 6:45 EDT Treatment [facility] [place] [address] [place] [address] Carlota Jin MD 1 [facility], [facility] 2 [place] [phone] 02/07/2025 6:45 EDT Treatment [facility] [address] [place], [place] [phone] Carlota Jin MD 1 [facility], [facility] 2 [place] [phone] 02/09/2025 6:45 EDT Treatment [facility] [place] [address] [place], [place] [phone] Carlota Jin MD 1 [facility], [facility] 2 [place] [phone] 02/12/2025 6:45 EDT Treatment [facility] [place] [address] [place], [place] [phone] Carlota Jin MD [address] [place] [address], [address] [phone] 02/14/2025 6:45 EDT Treatment [facility] [place] [address] [place], [place] [phone] Carlota Jin MD [address] [place] [address], [address] [phone] 02/16/2025 6:45 EDT Treatment [facility] [place] [address] [place], [place] [phone] Carlota Jin MD [address] [place] [address], [facility] [address] [place] [phone] 02/19/2025 6:45 EDT Treatment [facility] [place] [address] [place], [place] [phone] Carlota Jin MD 1 [facility], [facility] 2 [place] [phone] 02/21/2025 6:45 EDT Treatment [facility] [place] [address] [place], [place] [phone] Carlota Jin MD 1 [facility], [address] [place] [phone] documented as of this encounter Procedures Procedure Name Priority Date/Time Associated Diagnosis Comments COMPLETE BLOOD COUNT Routine 08/11/2023 6:41 EDT ESRD (end stage renal disease) ([facility]) HEMODIALYSIS Routine 08/11/2023 6:32 EDT ESRD (end stage renal disease) ([facility]) documented in this encounter Results * (ABNORMAL) COMPLETE BLOOD COUNT (08/11/2023 6:41 EDT) WBC 7.00 4.00 - 10.40 K/cmm 08/11/2023 23:24 [facility] RBC 3.05(L) 4.36 - 5.78 M/cmm 08/11/2023 23:24 [facility] Hemoglobin 9.5(L) 13.8 - 17.3 g/dL 08/11/2023 23:24 [facility] HCT 29.7(L) 39.5 - 50.2 % 08/11/2023 23:24 [facility] MCV 97(H) 81 - 95 fL 08/11/2023 23:24 [facility] MCH 31.1 27.6 - 33.0 pg 08/11/2023 23:24 [facility] MCHC 32.0(L) 32.8 - 36.4 g/dL 08/11/2023 23:24 [facility] RDW-CV 12.5 <14.2 % 08/11/2023 23:24 [facility] RDW-SD 44.2 <46.0 fl 08/11/2023 23:24 [facility] PLT 250 141 - 377 K/cmm 08/11/2023 23:24 [facility] MPV 12.1 9.5 - 12.7 fL 08/11/2023 23:24 [facility] Blood VENOUS BLOOD / Unknown Venipuncture / Unknown 08/11/2023 6:41 EDT 08/11/2023 6:41 EDT us Carlota Jin MD HEMATOLOGY & PF4 ORDERABL ES Final Result [facility] [address] [place] [address] documented in this encounter Visit Diagnoses Diagnosis ESRD (end stage renal disease) ([facility] Primary End stage renal disease Anemia of chronic renal failure, unspecified CKD stage Hypoalbuminemia Other disorders of plasma protein metabolism Secondary hyperparathyroidism ([facility]) Secondary hyperparathyroidism (of renal origin) documented in this encounter Administered Medications Inactive Administered Medications - up to 3 most recent administrations Medication Order MAR Action Action Date Dose Rate Site calcium carbonate (TUMS) tablet 500 mg (200 mg elemental calcium) 2 Tablet 2 Tablet, oral, ONCE IN DIALYSIS, 1 dose, On Wed08/11/23 at 0700, Routine, DialysisIndications:ESRD (end stage renal disease) ([facility]),Secondary hyperparathyroidism ([facility]) Given 08/11/2023 7:00 EDT 2 Tablets epoetin ken (EPOGEN) 20,000 unit/2 mL injection 1,000 Units 1,000 Units, intravenous, ONCE IN DIALYSIS, 1 dose, On Wed08/11/23 at 0700, Routine, DialysisIndications:ESRD (end stage renal disease) ([facility]),Anemia of chronic renal failure, unspecified CKD stage Given 08/11/2023 7:00 EDT 1,000 Units heparin injection 9,000 Units 9,000 Units, intravenous, ONCE IN DIALYSIS, 1 dose, On Wed08/11/23 at 0700, Routine, Dialysis, Now x1 bolus 4500 units to be given at the beginning of dialysis 1500 units/hour to be given over the course of dialysis (9000 units total). Stop 1 hour prior to end of treatment. To be administered per Policy [id number].Indications:ESRD (end stage renal disease) ([facility]) Given 08/11/2023 7:00 EDT 9,000 Units LiquaCel liquid protein liquid 30 mL 30 mL, oral, ONCE IN DIALYSIS, 1 dose, On Wed08/11/23 at 0700, RoutineIndications:Hypoalbuminemi a,ESRD (end stage renal disease) ([facility]) Given 08/11/2023 7:00 EDT 30 mL documented in this encounter Orders Dialysis Count Last Ordered Date First Orde red Date HEMODIALYSIS 1 08/11/2023 documented in this encounter Care Teams Dancer Or Choreographer Relationship Specialty Start Date End Date Ken Greer MD [address] [place] [address] PCP - General 07/07/23 documented as of this encounter
--- OUTSIDE RECORDS SUMMARY | 2024-12-05 12:19 | XMS_ITS | Encounter Summary ---
Author Organization [facility] Address [address] [place] [address] Care Team Providers Care Hot Molder Name Role Phone Ken Greer MD Primary Care Provider [phone] Encounter Details Date Type Department Care Team (Latest Contact Info) Description 08/09/2023 6:45 EDT Treatment [facility] [address] [place], [place] [address] Carlota Jin MD 1 [facility], Level [address] [place] [address] ESRD (end stage renal disease) ([facility]) (Primary Dx); Anemia of chronic renal failure, unspecified CKD stage; Hypoalbuminemia; Secondary hyperparathyroidism ([facility]) Social History Tobacco Use Types Packs/Day [...] - Temperature - - Respiratory Rate 16 08/09/2023 0634 EDT Oxygen Saturation - - Inhaled Oxygen Concentration - - Weight 91.1 kg (200 lb 13.4 oz) 08/09/2023 0634 EDT Height - - Body Mass Index 29.66 07/08/2023 0839 EDT documented in this encounter Miscellaneous Notes * Flowsheet Note - Marcela Cox RN - 08/09/2023 1456 EDT 08/09/23 1441 Post-Hemodialysis Assessment Total Blood Processed (L) 90.28 Liters On Line Clearance: spKt/V 1.47 spKt/V Dialyzer Clearance Lightly streaked Treatment UFR (ml:kg:hr) 0 ml:kg:hr Critline refill Negative (29.5/29.3) Fluid Removed (L) 3.5 L Post-Dialysis Scale Weight 87.9 kg (193 lb 12.6 oz) Wheelchair Weight 0 kg (0 lb) Prosthesis Weight 0 kg (0 lb) Post-Treatment Weight (kg) 87.9 Treatment Weight Change (kg) 3.2 kg Day Target Weight (kg) 88.1 Post Sitting/Lying BP 139/74 Post Sitting/Lying pulse 61 Post Standing BP 150/75 Post Standing Pulse 71 Temp 36.5 ??C (97.7 ??F) Temp src [...] [facility] [place] [address] [place] [id number] Carlota Jin MD 1 [facility], Level [address] [place] [address] 12/08/2024 6:45 EST Treatment [facility] [place] [address] [place], [place] [address] Carlota Jin MD 1 [facility], [facility] [address] [place] [phone] 12/11/2024 6:45 EST Treatment [facility] [place] [address] [place], [place] [id number] Carlota Jin MD 1 [facility], [facility] 2 [place] [phone] 12/13/2024 6:45 EST Treatment [facility] [place] [address] [place], [place] [id number] Carlota Jin MD 1 [facility], [facility] 2 [place] [phone] 12/15/2024 6:45 EST Treatment [facility] [place] [address] [place], [place] [id number] Carlota Jin MD 1 [facility], [address] [phone] 12/18/2024 6:45 EST Treatment [facility] [place] [address] [place], [place] [id number] Carlota Jin MD 1 [facility], [facility] 2 [place] [phone] 12/20/2024 6:45 EST Treatment [facility] [place] [address] [place], [place] [id number] Carlota Jin MD 1 [facility], [facility] 2 [place] [phone] 12/22/2024 6:45 EST Treatment [facility] [place] [address] [place], [place] [id number] Carlota Jin MD 1 [facility], [facility] 2 [place] [phone] 12/25/2024 6:45 EST Treatment [facility] [place] [address] [place], [place] [id number] Carlota Jin MD 1 [facility], [facility] 2 [place] [phone] 12/27/2024 6:45 EST Treatment [facility] [address] [place], [place] [id number] Carlota Jin MD 1 [facility], [facility] 2 [place] [phone] 12/29/2024 6:45 EST Treatment [facility] [address] [place], [place] [id number] Carlota Jin MD 1 [facility], [facility] 2 [place] [phone] 01/01/2025 6:45 EDT Treatment [facility] [address] [place], [place] [id number] Carlota Jin MD 1 [facility], [facility] 2 [place] [phone] 01/03/2025 6:45 EDT Treatment [facility] [place] [address] [place], [place] [id number] Carlota Jin MD 1 [facility], [facility] 2 [place] [phone] 01/05/2025 6:45 EDT Treatment [facility] [place] [address] [place], [place] [id number] Carlota Jin MD 1 [facility], [facility] 2 [place] [phone] 01/08/2025 6:45 EDT Treatment [facility] [place] [address] [place], [place] [id number] Carlota Jin MD 1 [facility], [address] [phone] 01/10/2025 6:45 EDT Treatment [facility] [place] [address] [place], [place] [id number] Carlota Jin MD 1 [facility], [address] [phone] 01/12/2025 6:45 EDT Treatment [facility] [place] [address] [place], [place] [id number] Carlota Jin MD 1 [facility], [facility] 2 [place] [phone] 01/15/2025 6:45 EDT Treatment [facility] [place] [address] [place], [place] [id number] Carlota Jin MD 1 [facility], Level [address] [place] [phone] 01/17/2025 6:45 EDT Treatment [facility] [place] [address] [place], [place] [address] Carlota Jin MD 1 [facility], [facility] 2 [place] [phone] 01/19/2025 6:45 EDT Treatment [facility] [place] [address] [place], [place] [id number] Carlota Jin MD 1 [facility], [facility] 2 [place] [phone] 01/22/2025 6:45 EDT Treatment [facility] [place] [address] [place], [place] [id number] Carlota Jin MD 1 [facility], [facility] 2 [place] [phone] 01/24/2025 6:45 EDT Treatment [facility] [place] [address] [place] [address] Carlota Jin MD 1 [facility], [facility] 2 [place] [phone] 01/26/2025 6:45 EDT Treatment [facility] [place] [address] [place], [place] [id number] Carlota Jin MD 1 [facility], [facility] 2 [place] [phone] 01/29/2025 6:45 EDT Treatment [facility] [place] [address] [place], [place] [id number] Carlota Jin MD 1 [facility], [facility] 2 [place] [phone] 01/31/2025 6:45 EDT Treatment [facility] [place] [address] [place], [place] [id number] Carlota Jin MD 1 [facility], [facility] 2 [place] [phone] 02/02/2025 6:45 EDT Treatment [facility] [place] [address] [place] [address] Carlota Jin MD [address] [place] [address], [facility] 2 [place] [phone] 02/05/2025 6:45 EDT Treatment [facility] [place] [address] [place], [place] [id number] Carlota Jin MD [address] [place] [address], [facility] 2 [place] [phone] 02/07/2025 6:45 EDT Treatment [facility] [place] [address] [place], [place] [id number] Carlota Jin MD 1 [facility], [facility] 2 [place] [phone] 02/09/2025 6:45 EDT Treatment [facility] [place] [address] [place], [place] [id number] Carlota Jin MD 1 [facility], [facility] 2 [place] [phone] 02/12/2025 6:45 EDT Treatment [facility] [place] [address] [place], [place] [id number] Carlota Jin MD 1 [facility], [facility] 2 [place] [phone] 02/14/2025 6:45 EDT Treatment [facility] [place] [address] [place], [place] [id number] Carlota Jin MD 1 [facility], [facility] 2 [place] [phone] 02/16/2025 6:45 EDT Treatment [facility] [place] [address] [place], [place] [id number] Carlota Jin MD 1 [facility], [facility] 2 [place] [phone] 02/19/2025 6:45 EDT Treatment [facility] [place] [address] [place], [place] [id number] Carlota Jin MD 1 [facility], [facility] 2 [place] [phone] 02/21/2025 6:45 EDT Treatment [facility] [place] [address] [place], [place] [id number] Carlota Jin MD 1 [facility], [facility] 2 [place] [phone] documented as of this encounter Procedures Procedure Name Priority Date/Time Associated Diagnosis Comments HEMODIALYSIS Routine 08/09/2023 6:35 EDT ESRD (end stage renal disease) ([facility] [...] oral, ONCE IN DIALYSIS, 1 dose, On Wed08/09/23 at 0700, Routine, DialysisIndications:ESRD (end stage renal disease) ([facility]),Secondary hyperparathyroidism ([facility]) Given 08/09/2023 7:03 EDT 2 Tablets epoetin ken (EPOGEN) 20,000 unit/2 mL injection 1,000 Units 1,000 Units, intravenous, ONCE IN DIALYSIS, 1 dose, On Wed08/09/23 at 0700, Routine, DialysisIndications:ESRD (end stage renal disease) ([facility]),Anemia of chronic renal failure, unspecified CKD stage Given 08/09/2023 7:03 EDT 1,000 Units heparin injection 9,000 Units 9,000 Units, intravenous, ONCE IN DIALYSIS, 1 dose, On Wed08/09/23 at 0700, Routine, Dialysis, Now x1 bolus 4500 units to be given at the beginning of dialysis 1500 units/hour to be given over the course of dialysis (9000 units total). Stop 1 hour prior to end of treatment. To be administered per Policy [id number].Indications:ESRD (end stage renal disease) ([facility]) Given 08/09/2023 6:45 EDT 9,000 Units LiquaCel liquid protein liquid 30 mL 30 mL, oral, ONCE IN DIALYSIS, 1 dose, On Wed08/09/23 at 0700, RoutineIndications:Hypoalbuminemi a,ESRD (end stage renal disease) ([facility]) Given 08/09/2023 7:03 EDT 30 mL documented in this encounter Orders Dialysis Count Last Ordered Date First Orde red Date HEMODIALYSIS 1 08/09/2023 documented in this encounter Care Teams Hot Molder Relationship Specialty Start Date End Date Ken Greer MD [address] [facility] [place] [address] PCP - General 07/07/23 documented as of this encounter
--- OUTSIDE RECORDS SUMMARY | 2024-12-05 12:19 | XMS_ITS | Encounter Summary ---
Author Organization [facility] Address [address] [place] [address] Care Team Providers Care Travel Clerk Name Role Phone Ken Greer MD Primary Care Provider [phone] Kiel Powers Unavailable Unavailable Encounter Details Date Type Department Care Team (Late Contact Info) Description 08/26/2023 Lab Requisition [facility] Pathology & Laboratory Medicine - [facility] [address] [place] [address] Ken Greer MD [facility] [place], [place] [id number] Disorder of the skin and subcutaneous tissue, unspecified Social History Tobacco Use Types Packs/Day Years [...] Encounters Date Type Department Care Team (Late Contact Info) Description 12/06/2024 6:45 EST Treatment [facility] [address] [place] [id number] Carlota Jin MD 1 [facility], Level [address] [place] [phone] 12/08/2024 6:45 EST Treatment [facility] [place] [address] [place], [place] [id number] Carlota Jin MD 1 [facility], Level [address] [place] [phone] 12/11/2024 6:45 EST Treatment [facility] [place] [address] [place] [address] Carlota Jin MD 1 [facility], [facility] 2 [place] [phone] 12/13/2024 6:45 EST Treatment [facility] [place] [address] [place], [place] [address] [phone] Carlota Jin MD 1 [facility], [facility] [address] [place] [phone] 12/15/2024 6:45 EST Treatment [facility] [place] [address] [place] [address] Carlota Jin MD 1 [facility], Level [address] [place] [phone] 12/18/2024 6:45 EST Treatment [facility] [place] [address] [place], [place] [id number] Carlota Jin MD 1 [facility], Level [address] [place] [phone] 12/20/2024 6:45 EST Treatment [facility] [place] [address] [place], [place] [address] Carlota Jin MD 1 [facility], [facility] 2 [place] [phone] 12/22/2024 6:45 EST Treatment [facility] [place] [address] [place] [address] Carlota Jin MD 1 [facility], [address] [phone] 12/25/2024 6:45 EST Treatment [facility] [place] [address] [place], [place] [id number] Carlota Jin MD 1 [facility], [address] [phone] 12/27/2024 6:45 EST Treatment [facility] [place] [address] [place] [address] Carlota Jin MD 1 [facility], [address] [phone] 12/29/2024 6:45 EST Treatment [facility] [address] [place], [place] [id number] Carlota Jin MD [address] [phone] 01/01/2025 6:45 EDT Treatment [facility] [place] [address] [place], [place] [id number] Carlota Jin MD 1 [facility], [facility] 2 [place] [phone] 01/03/2025 6:45 EDT Treatment [facility] [place] [address] [place], [place] [id number] Carlota Jin MD 1 [facility], [facility] 2 [place] [phone] 01/05/2025 6:45 EDT Treatment [facility] [place] [address] [place], [place] [id number] Carlota Jin MD 1 [facility], [address] [phone] 01/08/2025 6:45 EDT Treatment [facility] [place] [address] [place], [place] [id number] Carlota Jin MD 1 [facility], [facility] 2 [place] [phone] 01/10/2025 6:45 EDT Treatment [facility] [place] [address] [place], [place] [id number] Carlota Jin MD 1 [facility], [facility] 2 [place] [phone] 01/12/2025 6:45 EDT Treatment [facility] [place] [address] [place], [place] [id number] Carlota Jin MD 1 [facility], [facility] [address] [place] [phone] 01/15/2025 6:45 EDT Treatment [facility] [place] [address] [place], [place] [id number] Carlota Jin MD 1 [facility], [facility] 2 [place] [phone] 01/17/2025 6:45 EDT Treatment [facility] [place] [address] [place], [place] [id number] Carlota Jin MD 1 [facility], [address] [phone] 01/19/2025 6:45 EDT Treatment [facility] [place] [address] [place], [place] [id number] Carlota Jin MD 1 [facility], [address] [phone] 01/22/2025 6:45 EDT Treatment [facility] [place] [address] [place], [place] [id number] Carlota Jin MD 1 [facility], [address] [phone] 01/24/2025 6:45 EDT Treatment [facility] [place] [address] [place], [place] [address] Carlota Jin MD 1 [facility], [facility] [address] [place] [phone] 01/26/2025 6:45 EDT Treatment [facility] [place] [address] [place], [place] [id number] Carlota Jin MD 1 [facility], [facility] 2 [place] [phone] 01/29/2025 6:45 EDT Treatment [facility] [place] [address] [place], [place] [address] Carlota Jin MD 1 [facility], [facility] 2 [place] [phone] 01/31/2025 6:45 EDT Treatment [facility] [place] [address] [place], [place] [id number] Carlota Jin MD 1 [facility], [facility] [address] [place] [phone] 02/02/2025 6:45 EDT Treatment [facility] [place] [address] [place], [place] [address] Carlota Jin MD 1 [facility], [facility] [address] [place] [phone] 02/05/2025 6:45 EDT Treatment [facility] [place] [address] [place] [address] Carlota Jin MD 1 [facility], [facility] [address] [place] [phone] 02/07/2025 6:45 EDT Treatment [facility] [place] [address] [place], [place] [address] Carlota Jin MD 1 [facility], [facility] [address] [place] [phone] 02/09/2025 6:45 EDT Treatment [facility] [place] [address] [place], [place] [id number] Carlota Jin MD 1 [facility], [facility] 2 [place] [phone] 02/12/2025 6:45 EDT Treatment [facility] [place] [address] [place], [place] [id number] Carlota Jin MD [address] [place] [address], [address] [phone] 02/14/2025 6:45 EDT Treatment [facility] [place] [address] [place], [place] [id number] Carlota Jin MD [address] [place] [address], [address] [phone] 02/16/2025 6:45 EDT Treatment [facility] [place] [address] [place], [place] [id number] Carlota Jin MD [address] [place] [address], [facility] [address] [place] [phone] 02/19/2025 6:45 EDT Treatment [facility] [place] [address] [place], [place] [id number] Carlota Jin MD [address] [place] [address], [facility] [address] [place] [phone] 02/21/2025 6:45 EDT Treatment [facility] [place] [address] [place], [place] [id number] Carlota Jin MD 1 [facility], Level [address] [place] [phone] documented as of this encounter Procedures Procedure Name Priority Date/Time Associated Diagnosis Comments SURGICAL PATHOLOGY Today 08/26/2023 14 :40 EDT Disorder of the skin and subcutaneous tissue, unspecified documented in this encounter Results * SURGICAL PATHOLOGY (08/26/2023 14:40 EDT) Note to Patient The following pathology results have been interpreted by your pathologist and may be available to you before your health provider has had the opportunity to review them. Please allow time for your provider to receive these results and explore management options, if applicable. 08/30/2023 8:27 [facility] Final Diagnosis A. SKIN OF SHOULDER, LEFT, SHAVE BIOPSY: - Squamous cell carcinoma, well differentiated, invasive. - Squamous cell carcinoma present focally at deep tissue edge. 08/30/2023 8:27 [facility] Attestation By the signature below, the attending physician certifies that they have 1) personally conducted a gross and/or microscopic examination of the described specimen(s), and/or personally interpreted the results of laboratory testing of the described specimen(s), and 2) personally rendered or confirmed the above diagnosis. 08/30/2023 8:27 [facility] at 0827 Microscopic Description The stratum corneum is thickened by orthohyperkeratosis and parakeratosis. Emanating from the epidermis and extending into the dermis is a proliferation of atypical squamous epithelium. The proliferation consists of variably sized, irregular islands associated with dermal desmoplasia. The cells have an increased nuclear-cytoplasmic ratio and nuclear pleomorphism. Intercellular bridge and keratin thomas formation are evident. 08/30/2023 8:27 [facility] Clinical History SCC vs. keratoacanthosis; clinical diagnosis code: L98.9 08/30/2023 8:27 [facility] Gross Description A. Received in formalin labelled with proper patient identification (initials V, D) and L shoulder is a white centrally crusted papule (1.4 x 1.0 x 0.4 cm). The specimen is inked, trisected, and entirely submitted in A1. Loren Hartman 08/27/2023 10:00 08/30/2023 8:27 [facility] Performing Lab [facility] 08/30/2023 8:27 [facility] Scanned Images 08/30/2023 8:27 [facility] Tissue SPECIMEN FROM SKIN / Unknown 08/26/2023 14:40 EDT 08/26/2023 23:35 EDT us Ken Greer MD PATHOLOGY ORDERABLES Final Resul t [facility] [address] [place] [address] documented in this encounter Visit Diagnoses Diagnosis Disorder of the skin and subcutaneous tissue, unspecified documented in this encounter Additional Health Concerns Infection Onset Date Last Indicated Resolved Time COVID-19 Comment:COVID+ 11/05/23 @[place] (see scan) 11/08/2023 11/08/2023 11/17/2023 13:58 EST R/O COVID-19 12/20/2023 12/20/2023 12/20/2023 7:14 EST COVID-19 Comment:Collected @ [facility]. 03/12/2024 03/13/2024 04/01/2024 22: 15 EDT R/O COVID-19 05/30/2024 05/30/2024 05/30/2024 20:5 0 EDT documented as of this encounter Care Teams Travel Clerk Relationship Specialty Start Date End Date Ken Greer MD [facility] [place] [address] PCP - General 07/07/23 Kiel Powers [employer] Attendant Nephrology 05/31/24 documented as of this encounter
--- OUTSIDE RECORDS SUMMARY | 2024-12-05 12:19 | XMS_ITS | Encounter Summary ---
Author Organization [facility] Address [address] [place] [address] Care Team Providers Care Clinical Specialist Medical Device Name Role Phone Ken Greer MD Primary Care Provider [phone] Encounter Details Date Type Department Care Team (Late st Contact Info) Description 08/13/2023 Documentation Visit [facility] [address] [place], [place] [address] Melissa Crespo, RN Social History Tobacco Use [...] [facility] [place] [address] [place] [id number] Carlota Jin MD 1 [facility], Level [address] [place] [phone] 12/08/2024 6:45 EST Treatment [facility] [address] [place] [id number] Carlota Jin MD 1 [facility], [facility] 2 [place] [phone] 12/11/2024 6:45 EST Treatment [facility] [place] [address] [place], [place] [address] [phone] Carlota Jin MD 1 [facility], [facility] [address] [place] [phone] 12/13/2024 6:45 EST Treatment [facility] [place] [address] [place] [address] Carlota Jin MD 1 [facility], [facility] 2 [place] [phone] 12/15/2024 6:45 EST Treatment [facility] [place] [address] [place] [address] Carlota Jin MD 1 [facility], [facility] 2 [place] [phone] 12/18/2024 6:45 EST Treatment [facility] [place] [address] [place] [address] Carlota Jin MD 1 [facility], [facility] 2 [place] [phone] 12/20/2024 6:45 EST Treatment [facility] [place] [address] [place], [place] [phone] Carlota Jin MD 1 [facility], [facility] 2 [place] [phone] 12/22/2024 6:45 EST Treatment [facility] [place] [address] [place], [place] [phone] Carlota Jin MD 1 [facility], [facility] 2 [place] [phone] 12/25/2024 6:45 EST Treatment [facility] [place] [address] [place], [place] [phone] Carlota Jin MD 1 [facility], [facility] 2 [place] [phone] 12/27/2024 6:45 EST Treatment [facility] [place] [address] [place], [place] [phone] Carlota Jin MD 1 [facility], [facility] 2 [place] [phone] 12/29/2024 6:45 EST Treatment [facility] [place] [address] [place], [place] [address] Carlota Jin MD 1 [facility], [facility] 2 [place] [phone] 01/01/2025 6:45 EDT Treatment [facility] [place] [address] [place], [place] [phone] Carlota Jin MD 1 [facility], [facility] 2 [place] [phone] 01/03/2025 6:45 EDT Treatment [facility] [place] [address] [place], [place] [phone] Carlota Jin MD 1 [facility], [facility] 2 [place] [phone] 01/05/2025 6:45 EDT Treatment [facility] [place] [address] [place] [address] Carl[address] MD 1 [facility], [facility] 2 [place] [phone] 01/08/2025 6:45 EDT Treatment [facility] [place] [address] [place], [place] [phone] Carlota Jin MD 1 [facility], [address] [phone] 01/10/2025 6:45 EDT Treatment [facility] [place] [address] [place], [place] [phone] Carlota Jin MD 1 [facility], [address] [phone] 01/12/2025 6:45 EDT Treatment [facility] [place] [address] [place], [place] [phone] Carlota Jin MD 1 [facility], [address] [phone] 01/15/2025 6:45 EDT Treatment [facility] [place] [address] [place], [place] [phone] Carlota Jin MD 1 [facility], [facility] 2 [place] [phone] 01/17/2025 6:45 EDT Treatment [facility] [place] [address] [place], [place] [phone] Carlota Jin MD 1 [facility], [facility] 2 [place] [phone] 01/19/2025 6:45 EDT Treatment [facility] [place] [address] [place], [place] [phone] Carlota Jin MD 1 [facility], [facility] 2 [place] [phone] 01/22/2025 6:45 EDT Treatment [facility] [place] [address] [place] [address] Carlota Jin MD 1 [facility], [facility] 2 [place] [phone] 01/24/2025 6:45 EDT Treatment [facility] [place] [address] [place], [place] [phone] Carlota Jin MD 1 [facility], [facility] 2 [place] [phone] 01/26/2025 6:45 EDT Treatment [facility] [place] [address] [place], [place] [phone] Carlota Jin MD 1 [facility], [facility] 2 [place] [phone] 01/29/2025 6:45 EDT Treatment [facility] [place] [address] [place], [place] [address] Carlota Jin MD 1 [facility], [facility] 2 [place] [phone] 01/31/2025 6:45 EDT Treatment [facility] [place] [address] [place], [place] [phone] Carlota Jin MD 1 [facility], [facility] 2 [place] [phone] 02/02/2025 6:45 EDT Treatment [facility] [place] [address] [place], [place] [phone] Carlota Jin MD 1 [facility], [facility] 2 [place] [phone] 02/05/2025 6:45 EDT Treatment [facility] [place] [address] [place], [place] [phone] Carlota Jin MD 1 [facility], [facility] 2 [place] [phone] 02/07/2025 6:45 EDT Treatment [facility] [place] [address] [place], [place] [phone] Carlota Jin MD 1 [facility], [facility] 2 [place] [phone] 02/09/2025 6:45 EDT Treatment [facility] [place] [address] [place], [place] [id number] Carlota Jin MD 1 [facility], [facility] 2 [place] [phone] 02/12/2025 6:45 EDT Treatment [facility] [place] [address] [place], [place] [address] Carlota Jin MD 1 [facility], [facility] 2 [place] [phone] 02/14/2025 6:45 EDT Treatment [facility] [place] [address] [place], [place] [phone] Carlota Jin MD 1 [facility], [facility] 2 [place] [phone] 02/16/2025 6:45 EDT Treatment [facility] [place] [address] [place], [place] [phone] Carlota Jin MD 1 [facility], [facility] 2 [place] [phone] 02/19/2025 6:45 EDT Treatment [facility] [place] [address] [place] [address] Carlota Jin MD 1 [facility], [facility] 2 [place] [phone] 02/21/2025 6:45 EDT Treatment [facility] [place] [address] [place], [place] [phone] Carlota Jin MD 1 [facility], [facility] 2 [place] [phone] documented as of this encounter Visit Diagnoses Not on filedocumented in this encounter Care Teams Clinical Specialist Medical Device Relationship Specialty Start Date End Date [place] [address] PCP - General 07/07/23 documented as of this encounter
--- OUTSIDE RECORDS SUMMARY | 2024-12-05 12:19 | XMS_ITS | Encounter Summary ---
Author Organization [facility] Address [address] [place] [address] Care Team Providers Care Enterprise Systems Architect Name Role Phone Ken Greer MD Primary Care Provider [phone] Encounter Details Date Type Department Care Team (Latest Contact Info) Description 08/18/2023 6:45 EDT Treatment [facility] [address] [place], [place] [phone] Carlota Jin MD 1 [facility], Level [address] [place] [address] ESRD (end stage renal disease) ([facility]) (Primary Dx); Anemia of chronic renal failure, unspecified CKD stage; Hypoalbuminemia; Secondary hyperparathyroidism ([facility]) Social History Tobacco Use Types Packs/Day [...] - Temperature - - Respiratory Rate 16 08/18/2023 0629 EDT Oxygen Saturation - - Inhaled Oxygen Concentration - - Weight 90.7 kg (199 lb 15.3 oz) 08/18/2023 0630 EDT Height - - Body Mass Index 29.53 07/08/2023 0839 EDT documented in this encounter Miscellaneous Notes * Flowsheet Note - Marcela Cox RN - 08/18/2023 1417 EDT 08/18/23 1103 Post-Hemodialysis Assessment Total Blood Processed (L) 89.28 Liters On Line Clearance: spKt/V 1.42 spKt/V Dialyzer Clearance Lightly streaked Treatment UFR (ml:kg:hr) 10.71 ml:kg:hr Fluid Removed (L) 3.5 L Post-Dialysis Scale Weight 87.9 kg (193 lb 12.6 oz) Wheelchair Weight 0 kg (0 lb) Prosthesis Weight 1 kg (2 lb 3.3 oz) Post-Treatment Weight (kg) 86.9 Treatment Weight Change (kg) 3.8 kg Day Target Weight (kg) 86.7 Post Sitting/Lying BP 157/78 Post Sitting/Lying pulse 65 Post Standing BP 132/72 Post Standing Pulse 67 Temp 36.7 ??C (98.1 ??F) Temp [...] Dialysis Rounding - Skye Gomez NP - 08/18/2023 0645 EDT Dialysis Provider's Routine Assessment Gerson Bruner was seen and examined as appropriate during Dialysis. Pertinent lab results were reviewed. Changes since last visit: None Changes to current prescriptions/orders: None Skye Gomez NP documented in this encounter Plan of Treatment Upcoming Encounters Date Type Department Care Team (Late st Contact Info) Description 12/06/2024 6:45 EST Treatment [facility] [place] [address] [place], [place] [phone] Carlota Jin MD 1 [facility], [facility] 2 [place] [phone] 12/08/2024 6:45 EST Treatment [facility] [place] [address] [place], [place] [phone] Carlota Jin MD 1 [facility], [facility] 2 [place] [phone] 12/11/2024 6:45 EST Treatment [facility] [place] [address] [place], [place] [phone] Carlota Jin MD 1 [facility], [facility] 2 [place] [phone] 12/13/2024 6:45 EST Treatment [facility] [place] [address] [place], [place] [phone] Carlota Jin MD [address] [place] [address], [facility] 2 [place] [phone] 12/15/2024 6:45 EST Treatment [facility] [place] [address] [place], [place] [phone] Carlota Jin MD 1 [facility], [facility] 2 [place] [phone] 12/18/2024 6:45 EST Treatment [facility] [place] [address] [place], [place] [phone] Carlota Jin MD 1 [facility], Level [address] [place] [phone] 12/20/2024 6:45 EST Treatment [facility] [place] [address] [place], [place] [id number] Carlota Jin MD 1 [facility], [facility] 2 [place] [phone] 12/22/2024 6:45 EST Treatment [facility] [place] [address] [place], [place] [phone] Carlota Jin MD 1 [facility], [facility] 2 [place] [phone] 12/25/2024 6:45 EST Treatment [facility] [place] [address] [place] [address] Carlota Jin MD 1 [facility], [facility] 2 [place] [phone] 12/27/2024 6:45 EST Treatment [facility] [address] [place] [address] Carlota Jin MD 1 [facility], [facility] 2 [place] [phone] 12/29/2024 6:45 EST Treatment [facility] [address] [place], [place] [phone] Carlota Jin MD 1 [facility], [facility] 2 [place] [phone] 01/01/2025 6:45 EDT Treatment [facility] [place] [address] [place], [place] [phone] Carlota Jin MD 1 [facility], [facility] 2 [place] [phone] 01/03/2025 6:45 EDT Treatment [facility] [place] [address] [place], [place] [id number] Carlota Jin MD 1 [facility], [facility] 2 [place] [phone] 01/05/2025 6:45 EDT Treatment [facility] [place] [address] [place] [address] Carlota Jin MD [address] [place] [address], [facility] 2 [place] [phone] 01/08/2025 6:45 EDT Treatment [facility] [place] [address] [place], [place] [phone] Carlota Jin MD [address] [place] [address], [facility] 2 [place] [phone] 01/10/2025 6:45 EDT Treatment [facility] [place] [address] [place], [place] [phone] Carlota Jin MD 1 [facility], [facility] 2 [place] [phone] 01/12/2025 6:45 EDT Treatment [facility] [place] [address] [place], [place] [phone] Carlota Jin MD 1 [facility], [facility] 2 [place] [phone] 01/15/2025 6:45 EDT Treatment [facility] [place] [address] [place], [place] [phone] Carlota Jin MD 1 [facility], [facility] 2 [place] [phone] 01/17/2025 6:45 EDT Treatment [facility] [place] [address] [place], [place] [phone] Carlota Jin MD 1 [facility], [facility] 2 [place] [phone] 01/19/2025 6:45 EDT Treatment [facility] [place] [address] [place], [place] [id number] Carlota Jin MD 1 [facility], [facility] 2 [place] [phone] 01/22/2025 6:45 EDT Treatment [facility] [place] [address] [place], [place] [id number] Carlota Jin MD 1 [facility], [facility] 2 [place] [phone] 01/24/2025 6:45 EDT Treatment [facility] [place] [address] [place], [place] [id number] Carlota Jin MD 1 [facility], [facility] 2 [place] [phone] 01/26/2025 6:45 EDT Treatment [facility] [place] [address] [place], [place] [phone] Carlota Jin MD 1 [facility], [facility] 2 [place] [phone] 01/29/2025 6:45 EDT Treatment [facility] [place] [address] [place], [place] [id number] Carlota Jin MD 1 [facility], [facility] 2 [place] [phone] 01/31/2025 6:45 EDT Treatment [facility] [place] [address] [place], [place] [phone] Carlota Jin MD 1 [facility], [facility] 2 [place] [phone] 02/02/2025 6:45 EDT Treatment [facility] [place] [address] [place], [place] [address] Carlota Jin MD 1 [facility], [facility] 2 [place] [phone] 02/05/2025 6:45 EDT Treatment [facility] [place] [address] [place], [place] [id number] Carlota Jin MD 1 [facility], [facility] 2 [place] [phone] 02/07/2025 6:45 EDT Treatment [facility] [place] [address] [place], [place] [phone] Carlota Jin MD 1 [facility], [facility] 2 [place] [phone] 02/09/2025 6:45 EDT Treatment [facility] [place] [address] [place] [address] Carlota Jin MD 1 [facility], [facility] 2 [place] [phone] 02/12/2025 6:45 EDT Treatment [facility] [place] [address] [place], [place] [address] Carlota Jin MD 1 [facility], [address] [phone] 02/14/2025 6:45 EDT Treatment [facility] [place] [address] [place], [place] [id number] Carlota Jin MD 1 [facility], [address] [phone] 02/16/2025 6:45 EDT Treatment [facility] [place] [address] [place], [place] [phone] Carlota Jin MD 1 [facility], [address] [phone] 02/19/2025 6:45 EDT Treatment [facility] [place] [address] [place], [place] [phone] Carlota Jin MD 1 [facility], [facility] 2 [place] [address] 02/21/2025 6:45 EDT Treatment [facility] [place] [address] [place], [place] [phone] Carlota Jin MD 1 [facility], Level [address] [place] [address] documented as of this encounter Procedures Procedure Name Priority Date/Time Associated Diagnosis Comments COMPLETE BLOOD COUNT Routine 08/18/2023 6:36 EDT ESRD (end stage renal disease) ([facility]) HEMODIALYSIS Routine 08/18/2023 6:29 EDT ESRD (end stage renal disease) ([facility]) documented in this encounter Results * (ABNORMAL) COMPLETE BLOOD COUNT (08/18/2023 6:36 EDT) WBC 7.38 4.00 - 10.40 K/cmm 08/18/2023 21:56 [facility] RBC 3.10(L) 4.36 - 5.78 M/cmm 08/18/2023 21:56 [facility] Hemoglobin 9.7(L) 13.8 - 17.3 g/dL 08/18/2023 21:56 [facility] HCT 29.6(L) 39.5 - 50.2 % 08/18/2023 21:56 [facility] MCV 96(H) 81 - 95 fL 08/18/2023 21:56 [facility] MCH 31.3 27.6 - 33.0 pg 08/18/2023 21:56 [facility] MCHC 32.8 32.8 - 36.4 g/dL 08/18/2023 21:56 [facility] RDW-CV 12.6 <14.2 % 08/18/2023 21:56 [facility] RDW-SD 43.9 <46.0 fl 08/18/2023 21:56 EDT [facility] PLT 241 141 - 377 K/cmm 08/18/2023 21:56 EDT [facility] MPV 12.3 9.5 - 12.7 fL 08/18/2023 21:56 EDT [facility] Blood VENOUS BLOOD / Unknown Venipuncture / Unknown 08/18/2023 6:36 EDT 08/18/2023 6:36 EDT us Carlota Jin MD HEMATOLOGY & PF4 ORDERABL ES Final Result [facility] [address] [place] [address] documented in this encounter Visit Diagnoses Diagnosis ESRD (end stage renal disease) ([facility] Primary End stage renal disease Anemia of chronic renal failure, unspecified CKD stage Hypoalbuminemia Other disorders of plasma protein metabolism Secondary hyperparathyroidism ([facility]) Secondary hyperparathyroidism (of renal origin) documented in this encounter Administered Medications Inactive Administered Medications - up to 3 most recent administrations Medication Order MAR Action Action Date Dose Rate Site calcium carbonate (TUMS) tablet 500 mg (200 mg elemental calcium) 2 Tablet 2 Tablet, oral, ONCE IN DIALYSIS, 1 dose, On Wed08/18/23 at 0645, Routine, DialysisIndications:ESRD (end stage renal disease) ([facility]),Secondary hyperparathyroidism ([facility]) Given 08/18/2023 7:02 EDT 2 Tablets epoetin ken (EPOGEN) 20,000 unit/2 mL injection 1,500 Units 1,500 Units, intravenous, ONCE IN DIALYSIS, 1 dose, On Wed08/18/23 at 0645, Routine, DialysisIndications:ESRD (end stage renal disease) ([facility]),Anemia of chronic renal failure, unspecified CKD stage Given 08/18/2023 7:02 EDT 1,500 Units heparin injection 9,000 Units 9,000 Units, intravenous, ONCE IN DIALYSIS, 1 dose, On Wed08/18/23 at 0645, Routine, Dialysis, Now x1 bolus 4500 units to be given at the beginning of dialysis 1500 units/hour to be given over the course of dialysis (9000 units total). Stop 1 hour prior to end of treatment. To be administered per Policy [id number].Indications:ESRD (end stage renal disease) ([facility]) Given 08/18/2023 7:02 EDT 9,000 Units LiquaCel liquid protein liquid 30 mL 30 mL, oral, ONCE IN DIALYSIS, 1 dose, On Wed08/18/23 at 0645, RoutineIndications:Hypoalbuminemi a,ESRD (end stage renal disease) ([facility]) Given 08/18/2023 7:02 EDT 30 mL documented in this encounter Orders Dialysis Count Last Ordered Date First Orde red Date HEMODIALYSIS 1 08/18/2023 documented in this encounter Care Teams Enterprise Systems Architect Relationship Specialty Start Date End Date Ken Greer MD [facility] [place] [address] PCP - General 07/07/23 documented as of this encounter
--- OUTSIDE RECORDS SUMMARY | 2024-12-05 12:19 | XMS_ITS | Encounter Summary ---
Author Organization [facility] Address [address] [place] [address] Care Team Providers Care Equipment Specialist Name Role Phone Ken Greer MD Primary Care Provider [phone] Encounter Details Date Type Department Care Team (Latest Contact Info) Description 08/16/2023 6:45 EDT Treatment [facility] [address] [place], [place] [id number] Carlota Jin MD 1 [facility], Level 2 [place] [address] ESRD (end stage renal disease) ([facility]) (Primary Dx); Anemia of chronic renal failure, unspecified CKD stage; Hypoalbuminemia; Secondary hyperparathyroidism ([facility]) Social History Tobacco Use [...] - Temperature - - Respiratory Rate 16 08/16/2023 0639 EDT Oxygen Saturation - - Inhaled Oxygen Concentration - - Weight 92.8 kg (204 lb 9.4 oz) 08/16/2023 0637 E DT Height - - Body Mass Index 30.21 07/08/2023 0839 EDT documented in this encounter Miscellaneous Notes * Flowsheet Note - Marcela Cox RN - 08/16/2023 1516 EDT 08/16/23 1428 Post-Hemodialysis Assessment Total Blood Processed (L) 90.99 Liters On Line Clearance: spKt/V 1.43 spKt/V Dialyzer Clearance Lightly streaked Treatment UFR (ml:kg:hr) 0 ml:kg:hr Fluid Removed (L) 3.99 L Post-Dialysis Scale Weight 88.8 kg (195 lb 12.3 oz) Wheelchair Weight 0 kg (0 lb) Prosthesis Weight 1 kg (2 lb 3.3 oz) (shoes) Post-Treatment Weight (kg) 87.8 Treatment Weight Change (kg) 4 kg Day Target Weight (kg) 88.1 Post Sitting/Lying BP 157/84 Post Sitting/Lying pulse 63 Post Standing BP 146/75 Post Standing Pulse 68 Temp 36.4 ??C (97.5 ??F) Temp src Temporal Post access assessment AVF/AFG Hemostasis achieved Yes Note 10 minute hold time both sites Orientation Alert and Oriented x3 Yes Time Yes Place Yes Person Yes Cooperative Yes Disoriented No Discharge Ambulation Methods Ambulatory with assistive device Ambulation device Cane Wrap up items Patient Response to Treatment Removed 4L out of original 4.2L UF goal, goal reduced d/t cramping. Comments no concerns voiced post tx. documented in this encounter Plan of Treatment Upcoming Encounters Date Type Department Care Team (Late st Contact Info) Description 12/06/2024 6:45 EST Treatment [facility] [place] [address] [place] [address] Carlota [address] MD 1 [facility], Level [address] [place] [address] 12/08/2024 6:45 EST Treatment [facility] [place] [address] [place], [place] [address] Carlota Jin MD 1 [facility], [facility] 2 [place] [phone] 12/11/2024 6:45 EST Treatment [facility] [place] [address] [place], [place] [id number] Carlota Jin MD 1 [facility], [facility] 2 [place] [phone] 12/13/2024 6:45 EST Treatment [facility] [place] [address] [place], [place] [id number] Carlota Jin MD 1 [facility], [facility] 2 [place] [phone] 12/15/2024 6:45 EST Treatment [facility] [place] [address] [place], [place] [id number] Carlota Jin MD 1 [facility], [address] [phone] 12/18/2024 6:45 EST Treatment [facility] [address] [place], [place] [id number] Carlota Jin MD 1 [facility], [facility] 2 [place] [phone] 12/20/2024 6:45 EST Treatment [facility] [address] [place], [place] [id number] Carlota Jin MD 1 [facility], [facility] 2 [place] [phone] 12/22/2024 6:45 EST Treatment [facility] [place] [address] [place], [place] [id number] Carlota Jin MD 1 [facility], [facility] 2 [place] [phone] 12/25/2024 6:45 EST Treatment [facility] [place] [address] [place], [place] [id number] Carlota Jin MD 1 [facility], [facility] 2 [place] [phone] 12/27/2024 6:45 EST Treatment [facility] [place] [address] [place], [place] [id number] Carlota Jin MD 1 [facility], [facility] 2 [place] [phone] 12/29/2024 6:45 EST Treatment [facility] [address] [place], [place] [id number] Carlota Jin MD 1 [facility], [facility] 2 [place] [phone] 01/01/2025 6:45 EDT Treatment [facility] [address] [place], [place] [id number] Carlota Jin MD 1 [facility], [facility] 2 [place] [phone] 01/03/2025 6:45 EDT Treatment [facility] [place] [address] [place], [place] [address] Carlota Jin MD 1 [facility], [facility] 2 [place] [phone] 01/05/2025 6:45 EDT Treatment [facility] [place] [address] [place], [place] [id number] Carlota Jin MD 1 [facility], [facility] 2 [place] [phone] 01/08/2025 6:45 EDT Treatment [facility] [place] [address] [place], [place] [id number] Carlota Jin MD 1 [facility], [facility] 2 [place] [phone] 01/10/2025 6:45 EDT Treatment [facility] [place] [address] [place], [place] [id number] Carlota Jin MD 1 [facility], [facility] 2 [place] [phone] 01/12/2025 6:45 EDT Treatment [facility] [place] [address] [place], [place] [id number] Carlota Jin MD 1 [facility], [facility] 2 [place] [phone] 01/15/2025 6:45 EDT Treatment [facility] [place] [address] [place], [place] [id number] Carlota Jin MD 1 [facility], [facility] 2 [place] [phone] 01/17/2025 6:45 EDT Treatment [facility] [place] [address] [place], [place] [id number] Carlota Jin MD 1 [facility], [facility] 2 [place] [phone] 01/19/2025 6:45 EDT Treatment [facility] [place] [address] [place], [place] [id number] Carlota Jin MD 1 [facility], [facility] 2 [place] [phone] 01/22/2025 6:45 EDT Treatment [facility] [place] [address] [place], [place] [id number] Carlota Jin MD 1 [facility], [facility] 2 [place] [phone] 01/24/2025 6:45 EDT Treatment [facility] [place] [address] [place], [place] [id number] Carlota Jin MD 1 [facility], [facility] 2 [place] [phone] 01/26/2025 6:45 EDT Treatment [facility] [place] [address] [place], [place] [id number] Carlota Jin MD 1 [facility], [facility] 2 [place] [phone] 01/29/2025 6:45 EDT Treatment [facility] [place] [address] [place], [place] [id number] Carlota Jin MD 1 [facility], [facility] 2 [place] [phone] 01/31/2025 6:45 EDT Treatment [facility] [place] [address] [place], [place] [id number] Carlota Jin MD [address] [place] [address], [facility] 2 [place] [phone] 02/02/2025 6:45 EDT Treatment [facility] [place] [address] [place], [place] [id number] Carlota Jin MD [address] [place] [address], [address] [phone] 02/05/2025 6:45 EDT Treatment [facility] [place] [address] [place], [place] [id number] Carlota Jin MD 1 [facility], [facility] 2 [place] [phone] 02/07/2025 6:45 EDT Treatment [facility] [place] [address] [place], [place] [id number] Carlota Jin MD 1 [facility], [facility] 2 [place] [phone] 02/09/2025 6:45 EDT Treatment [facility] [place] [address] [place], [place] [id number] Carlota Jin MD 1 [facility], [facility] 2 [place] [phone] 02/12/2025 6:45 EDT Treatment [facility] [place] [address] [place], [place] [id number] Carlota Jin MD 1 [facility], [facility] 2 [place] [phone] 02/14/2025 6:45 EDT Treatment [facility] [place] [address] [place], [place] [id number] Carlota Jin MD 1 [facility], [facility] 2 [place] [phone] 02/16/2025 6:45 EDT Treatment [facility] [place] [address] [place] [address] Carl[address] Jin MD 1 [facility], [facility] 2 [place] [phone] 02/19/2025 6:45 EDT Treatment [facility] [place] [address] [place] [address] Carlota Jin MD 1 [facility], [facility] 2 [place] [phone] 02/21/2025 6:45 EDT Treatment [facility] [place] [address] [place], [place] [id number] Carlota Jin MD 1 [facility], [facility] 2 [place] [phone] documented as of this encounter Procedures Procedure Name Priority Date/Time Associated Diagnosis Comments HEMODIALYSIS Routine 08/16/2023 6:39 EDT ESRD (end stage renal disease) ([facility]) documented in this encounter Visit Diagnoses Diagnosis ESRD (end stage renal disease) ([facility])- Primary End stage renal disease Anemia of chronic renal failure, unspecified CKD stage Hypoalbuminemia Other disorders of plasma protein metabolism Secondary hyperparathyroidism ([facility]) Secondary hyperparathyroidism (of renal origin) documented in this encounter Administered Medications Inactive Administered Medications - up to 3 most recent administrations Medication Order MAR Action Action Date Dose Rate Site calcium carbonate (TUMS) tablet 500 mg (200 mg elemental calcium) 2 Tablet 2 Tablet, oral, ONCE IN DIALYSIS, 1 dose, On Wed08/16/23 at 0700, Routine, DialysisIndications:ESRD (end stage renal disease) ([facility]),Secondary hyperparathyroidism ([facility]) Given 08/16/2023 6:55 EDT 2 Tablets epoetin ken (EPOGEN) 20,000 unit/2 mL injection 1,500 Units 1,500 Units, intravenous, ONCE IN DIALYSIS, 1 dose, On Wed08/16/23 at 0700, Routine, DialysisIndications:ESRD (end stage renal disease) ([facility]),Anemia of chronic renal failure, unspecified CKD stage Given 08/16/2023 6:55 EDT 1,500 Units heparin injection 9,000 Units 9,000 Units, intravenous, ONCE IN DIALYSIS, 1 dose, On Wed08/16/23 at 0700, Routine, Dialysis, Now x1 bolus 4500 units to be given at the beginning of dialysis 1500 units/hour to be given over the course of dialysis (9000 units total). Stop 1 hour prior to end of treatment. To be administered per Policy [id number].Indications:ESRD (end stage renal disease) ([facility]) Given 08/16/2023 6:55 EDT 9,000 Units LiquaCel liquid protein liquid 30 mL 30 mL, oral, ONCE IN DIALYSIS, 1 dose, On Wed08/16/23 at 0700, RoutineIndications:Hypoalbuminemi a,ESRD (end stage renal disease) ([facility]) Given 08/16/2023 6:56 EDT 30 mL documented in this encounter Orders Dialysis Count Last Ordered Date First Orde red Date HEMODIALYSIS 1 08/16/2023 documented in this encounter Care Teams Equipment Specialist Relationship Specialty Start Date End Date Ken Greer MD [facility] [place] [address] PCP - General 07/07/23 documented as of this encounter
--- OUTSIDE RECORDS SUMMARY | 2024-12-05 12:19 | XMS_ITS | Encounter Summary ---
Author Organization [facility] Address [address] [place] [address] Care Team Providers Care Oracle Forms Developer Name Role Phone Ken Greer MD Primary Care Provider [phone] Encounter Details Date Type Department Care Team (Late st Contact Info) Description 08/06/2023 Documentation Visit [facility] [address] [place], [place] [address] Melissa Crespo, RN Social History Tobacco Use [...] [facility] [place] [address] [place] [id number] Carlota Jin MD 1 [facility], Level [address] [place] [phone] 12/08/2024 6:45 EST Treatment [facility] [address] [place] [id number] Carlota Jin MD 1 [facility], [facility] 2 [place] [phone] 12/11/2024 6:45 EST Treatment [facility] [place] [address] [place], [place] [address] [phone] Carlota Jin MD 1 [facility], [facility] 2 [place] [phone] 12/13/2024 6:45 EST Treatment [facility] [place] [address] [place] [address] Carlota Jin MD 1 [facility], [facility] 2 [place] [phone] 12/15/2024 6:45 EST Treatment [facility] [place] [address] [place] [address] Carlota Jin MD 1 [facility], [facility] 2 [place] [phone] 12/18/2024 6:45 EST Treatment [facility] [place] [address] [place] [address] Carlota Jin MD 1 [facility], [facility] 2 [place] [phone] 12/20/2024 6:45 EST Treatment [facility] [place] [address] [place], [place] [id number] Carlota Jin MD 1 [facility], [facility] 2 [place] [phone] 12/22/2024 6:45 EST Treatment [facility] [place] [address] [place], [place] [id number] Carlota Jin MD 1 [facility], [facility] 2 [place] [phone] 12/25/2024 6:45 EST Treatment [facility] [place] [address] [place], [place] [id number] Carlota Jin MD 1 [facility], [facility] 2 [place] [phone] 12/27/2024 6:45 EST Treatment [facility] [place] [address] [place], [place] [id number] Carlota Jin MD 1 [facility], [facility] 2 [place] [phone] 12/29/2024 6:45 EST Treatment [facility] [place] [address] [place], [place] [address] Carlota Jin MD 1 [facility], [facility] 2 [place] [phone] 01/01/2025 6:45 EDT Treatment [facility] [place] [address] [place], [place] [id number] Carlota Jin MD 1 [facility], [facility] 2 [place] [phone] 01/03/2025 6:45 EDT Treatment [facility] [place] [address] [place], [place] [id number] Carlota Jin MD 1 [facility], [facility] 2 [place] [phone] 01/05/2025 6:45 EDT Treatment [facility] [place] [address] [place] [address] Carlota Jin MD 1 [facility], [facility] 2 [place] [phone] 01/08/2025 6:45 EDT Treatment [facility] [place] [address] [place], [place] [id number] Carlota Jin MD 1 [facility], [address] [phone] 01/10/2025 6:45 EDT Treatment [facility] [place] [address] [place], [place] [id number] Carlota Jin MD 1 [facility], [address] [phone] 01/12/2025 6:45 EDT Treatment [facility] [place] [address] [place], [place] [id number] Carlota Jin MD 1 [facility], [address] [phone] 01/15/2025 6:45 EDT Treatment [facility] [place] [address] [place], [place] [id number] Carlota Jin MD 1 [facility], [facility] 2 [place] [phone] 01/17/2025 6:45 EDT Treatment [facility] [place] [address] [place], [place] [id number] Carlota Jin MD 1 [facility], [facility] 2 [place] [phone] 01/19/2025 6:45 EDT Treatment [facility] [place] [address] [place], [place] [id number] Carlota Jin MD 1 [facility], [facility] 2 [place] [phone] 01/22/2025 6:45 EDT Treatment [facility] [place] [address] [place] [address] Carlota Jin MD 1 [facility], [facility] 2 [place] [phone] 01/24/2025 6:45 EDT Treatment [facility] [place] [address] [place], [place] [id number] Carlota Jin MD 1 [facility], [facility] 2 [place] [phone] 01/26/2025 6:45 EDT Treatment [facility] [place] [address] [place], [place] [id number] Carlota Jin MD 1 [facility], [facility] 2 [place] [phone] 01/29/2025 6:45 EDT Treatment [facility] [place] [address] [place], [place] [address] Carlota Jin MD 1 [facility], [facility] 2 [place] [phone] 01/31/2025 6:45 EDT Treatment [facility] [place] [address] [place], [place] [id number] Carlota Jin MD 1 [facility], [facility] 2 [place] [phone] 02/02/2025 6:45 EDT Treatment [facility] [place] [address] [place], [place] [id number] Carlota Jin MD 1 [facility], [facility] 2 [place] [phone] 02/05/2025 6:45 EDT Treatment [facility] [place] [address] [place], [place] [id number] Carlota Jin MD 1 [facility], [facility] 2 [place] [phone] 02/07/2025 6:45 EDT Treatment [facility] [place] [address] [place], [place] [id number] Carlota Jin MD 1 [facility], [facility] 2 [place] [phone] 02/09/2025 6:45 EDT Treatment [facility] [place] [address] [place], [place] [id number] Carlota Jin MD 1 [facility], [facility] 2 [place] [phone] 02/12/2025 6:45 EDT Treatment [facility] [place] [address] [place], [place] [address] Carlota Jin MD 1 [facility], [facility] 2 [place] [phone] 02/14/2025 6:45 EDT Treatment [facility] [place] [address] [place], [place] [id number] Carlota Jin MD 1 [facility], [facility] 2 [place] [phone] 02/16/2025 6:45 EDT Treatment [facility] [place] [address] [place], [place] [id number] Carlota Jin MD 1 [facility], [facility] 2 [place] [phone] 02/19/2025 6:45 EDT Treatment [facility] [place] [address] [place] [address] Carlota Jin MD 1 [facility], [facility] 2 [place] [phone] 02/21/2025 6:45 EDT Treatment [facility] [place] [address] [place], [place] [phone] Carlota Jin MD 1 [facility], [facility] 2 [place] [phone] documented as of this encounter Visit Diagnoses Not on filedocumented in this encounter Care Teams Oracle Forms Developer Relationship Specialty Start Date End Date Ken Greer [place] [address] PCP - General 07/07/23 documented as of this encounter
--- OUTSIDE RECORDS SUMMARY | 2024-12-05 12:19 | XMS_ITS | Encounter Summary ---
Author Organization [facility] Address [address] [place] [address] Care Team Providers Care Blanker Operator Name Role Phone Ken Greer MD Primary Care Provider [phone] Encounter Details Date Type Department Care Team (Late st Contact Info) Description 08/17/2023 Documentation Visit [facility] [address] [place] [address] Shelley Eden, RD [address] [place] [address] Social History Tobacco Use Types Packs/Day Years [...] Progress Notes * Shelley Eden RD - 08/17/2023 1620 EDT Dialysis Dietitian's Monthly Assessment Met with patient on 07/1823 Family/caregivers or others present: lives with his Information obtained from: patient Recent Hospitalizations: none Subjective: Xander often is very sleepy and difficult to talk to at HD in addition he is hard of hearing. He continues to be busy working on building their house. He often feels tired. We discussed continued high phos level . Noted he often grabs food out and about and has not been taking the renvela consistently. He also likes to snack on yogurt and uses milk in his coffee drinking 3-4 cups a day. He is taking liquacel. He noted his blood sugars are high and his PMD wants to add trulicity - he said he needs to get it thru a community pharmacy to afford it. He is on insulin but does not check FSat home. Appetite: Good I can eat like a horse Appetite scale (0-10): No number given Gastrointestinal: No issues identified Skin integrity: Intact Diabetes: Yes does not check on bld sugars Diabetes Management: Self Monitoring of Blood Glucose on insulin but does not check Diet Recall: B none L Persian food D goulash Fluid: Water, Coffee, Milk, Juice Alcohol: will need to f/u Prescribed Weight:87 Post-Dialytic Weight: 87.8 08/06/2023 11:08 08/09/2023 14:41 08/11/2023 10:52 08/13/2023 11:17 08/16/2023 14:28 - ( Kg ) 86.6 87.9 87.8 87 87.8 UFR: 08/06/2023 11:08 08/09/2023 14:41 08/11/2023 10:52 08/13/2023 11:17 08/16/2023 14:28 - mL/Kg/hr 6.79 ml:kg:hr 0 ml:kg:hr 7.06 ml:kg:hr 11.02 ml:kg:hr 0 ml:kg:hr URR: 69.444 (Calculated from:; BUN Pre-Dialysis: 72 mg/dL at 07/26/2023 11:11; BUN Post-Dialysis: 22mg/dL at 07/26/2023 11:11) Kt/V: 1.36 (Calculated from:; BUN Pre-Dialysis: 72 mg/dL at 07/26/2023 11:11; BUN Post-Dialysis: 22 mg/dL at 07/26/2023 11:11; Pre-Treatment Weight (kg): 88.5 at 07/26/2023 6:34; Post-Treatment Weight (kg): 86.8 at 07/26/2023 10:47; Duration of Treatment (minutes): 242 minutes at 07/26/2023 10:47) PCR: 1.22 (Calculated from:; BUN Pre-Dialysis: 72 mg/dL at 07/26/2023 11:11; BUN Post-Dialysis: 22 mg/dL at 07/26/2023 11:11; Pre-Treatment Weight (kg): 88.5 at 07/26/2023 6:34; Post-Treatment Weight (kg): 86.8 at 07/26/2023 10:47; Duration of Treatment (minutes): 242 minutes at 07/26/2023 10:47; Age: 57 years) Pertinent Labs include: Lab Results Component Value Date LABALBU 3.2 (L) 07/26/2023 LABALBU 3.5 06/28/2023 Lab Results Component Value Date BUNPRE 72 (H) 07/26/2023 BUNPRE 72 (H) 07/26/2023 NA 139 07/26/2023 NA 131 (L) 06/28/2023 K 5.4 (H) 07/26/2023 K 4.9 07/08/2023 CL 102 07/26/2023 CL 93 (L) 06/28/2023 CO2 22 07/26/2023 CO2 23 06/28/2023 MG 2.2 07/26/2023 MG 2.4 06/28/2023 CALCIUM 8.7 07/26/2023 CALCIUM 8.7 06/28/2023 CALCCA 9.3 07/26/2023 CALCCA 9.1 06/28/2023 PHOS 8.3 (H) 07/26/2023 PHOS 7.2 (H) 06/28/2023 ALKPHOS 92 07/26/2023 ALKPHOS 123 06/28/2023 PTH 484 (H) 07/26/2023 PTH 369 (H) 04/26/2023 PLT 250 08/11/2023 PLT 261 08/04/2023 MCV 97 (H) 08/11/2023 MCV 95 08/04/2023 [id number] 11/16/2022 VITD 27 (L) 11/16/2022 FOLATE 17.3 11/16/2022 Protein/calorie supplements: liqaucel on HD days Using protein powder at home (orgain)- unsure if he is still using Renal/other vitamins: cholecalciferol (Vitamin D3) - 2000 IU daily MULTIVITAMIN ORAL Herbal/OTC supplements: None reported CKD/MBD medications: sevelamer hydrochloride - 2 with meals - has not been consistent Recmd to add tums with snacks and larger meals Getting 2 tums at HD Other Medications Relevant to Nutrition: atorvastatin - 40 mg furosemide - 20 mg sevelamer hydrochloride - 800 mg insulin lispro - 100 unit/mL Levemir FlexPen insulin pen - 100 unit/mL (3 mL) Assessment Nutrition status / Adequacy of intake: Xnader seems to be eating well at least 2 protein servings daily but albumin remains low - will cont liquacel -have encouraged use of protein powder at home. We discussed adding more HBV protein sources in his diet. His wt has ranged from 86-88 kg since starting HD and his current BMI is at 28. He is well nourished in appearance and fairly highly functioning Weight/Volume status: fluid gains 3.1-4.8 UFR 4-11 Electrolytes: All WNL Mineral Bone Disease: Ca WNL Phos high - encouraged to time binders with meals, revd high phos foods to limit - phos education sheet provided, on 2 tums at HD PTH WNL - no calcitriol Vitamin Status: [...] 2023 Phos education sheet - July 2023 Assessment of Understanding: needs reinforcement Medical Nutrition Therapy Plan and Recommendation 1. Revd high phos foods to limit - Encourage consistency with binders 2. Cont liquacel at HD 3. Will need to change to renal vitamin - discussed again 4. Continue Vitamin D3 supplement 5. Cont tums at HD Shelley Eden RD, CD documented in this encounter Plan of Treatment Upcoming Encounters Date Type Department Care Team (Late st Contact Info) Description 12/06/2024 6:45 EST Treatment [facility] - [place] [address] [place], [place] [id number] Carlota Jin MD 1 [facility], [facility] [address] [place] [phone] 12/08/2024 6:45 EST Treatment [facility] - [place] [address] [place] [address] Carlota Jin MD 1 [facility], [facility] [address] [place] [phone] 12/11/2024 6:45 EST Treatment [facility] - [place] [address] [place], [place] [id number] Carlota Jin MD 1 [facility], [address] [phone] 12/13/2024 6:45 EST Treatment [facility] - [place] [address] [place], [place] [id number] Carlota Jin MD 1 [facility], [address] [phone] 12/15/2024 6:45 EST Treatment [facility] - [place] [address] [place], [place] [id number] Carlota Jin MD 1 [facility], [facility] [address] [place] [phone] 12/18/2024 6:45 EST Treatment [facility] - [place] [address] [place], [place] [id number] Carlota Jin MD 1 [facility], [facility] [address] [place] [phone] 12/20/2024 6:45 EST Treatment [facility] - [place] [address] [place], [place] [id number] Carlota Jin MD 1 [facility], Level [address] [place] [phone] 12/22/2024 6:45 EST Treatment [facility] - [place] [address] [place], [place] [id number] Carlota Jin MD 1 [facility], [facility] [address] [place] [phone] 12/25/2024 6:45 EST Treatment [facility]i - [place] [address] [place] [address] Carlota Jin MD 1 [facility], [facility] [address] [place] [phone] 12/27/2024 6:45 EST Treatment [facility] - [place] [address] [place] [address] Carlota Jin MD 1 [facility], [address] [place] [phone] 12/29/2024 6:45 EST Treatment [facility] [address] [place], [place] [id number] Carlota Jin MD 1 [facility], [address] [place] [phone] 01/01/2025 6:45 EDT Treatment [facility] - [place] [address] [place], [place] [address] Carlota Jin MD 1 [facility], [address] [phone] 01/03/2025 6:45 EDT Treatment [facility] - [place] [address] [place] [address] Carlota Jin MD 1 [facility], [address] [phone] 01/05/2025 6:45 EDT Treatment [facility]ys[facility] - [place] [address] [place], [place] [id number] Carlota Jin MD 1 [facility], [address] [phone] 01/08/2025 6:45 EDT Treatment [facility] D[facility]ysi - [place] [address] [place], [place] [phone] Carlota Jin MD [address] [phone] 01/10/2025 6:45 EDT Treatment [facility] - [place] [address] [place], [place] [id number] Carlota Jin MD [address] [phone] 01/12/2025 6:45 EDT Treatment [facility] - [place] [address] [place], [place] [id number] Carlota Jin MD 1 [facility], [facility] [address] [place] [phone] 01/15/2025 6:45 EDT Treatment [facility] - [place] [address] [place], [place] [id number] Carlota Jin MD 1 [facility], [facility] [address] [place] [phone] 01/17/2025 6:45 EDT Treatment [facility] Dialysi - [place] [address] [place], [place] [phone] Carlota Jin MD 1 [facility], [facility] [address] [place] [phone] 01/19/2025 6:45 EDT Treatment [facility] Dialysi - [place] [address] [place], [place] [phone] Carlota Jin MD 1 [facility], [facility] [address] [place] [phone] 01/22/2025 6:45 EDT Treatment [facility] Dialysi - [place] [address] [place], [place] [phone] Carlota Jin MD 1 [facility], [facility] [address] [place] [phone] 01/24/2025 6:45 EDT Treatment [facility]i [place] [address] [place], [place] [id number] Carlota Jin MD 1 [facility], [facility] [address] [place] [phone] 01/26/2025 6:45 EDT Treatment [facility] - [place] [address] [place], [place] [phone] Carlota Jin MD 1 [facility], [facility] [address] [place] [phone] 01/29/2025 6:45 EDT Treatment [facility] D[facility]ysi - [place] [address] [place], [place] [id number] Carlota Jin MD 1 [facility], [facility] [address] [place] [phone] 01/31/2025 6:45 EDT Treatment [facility] - [place] [address] [place], [place] [phone] Carlota Jin MD 1 [facility], [address] [phone] 02/02/2025 6:45 EDT Treatment [facility] - [place] [address] [place], [place] [id number] Carlota Jin MD 1 [facility], [address] [phone] 02/05/2025 6:45 EDT Treatment [facility] Dialysi - [place] [address] [place], [place] [phone] Carlota Jin MD 1 [facility], [facility] [address] [place] [phone] 02/07/2025 6:45 EDT Treatment [facility] - [place] [address] [place], [place] [phone] Carlota Jin MD 1 [facility], Level [address] [place] [phone] 02/09/2025 6:45 EDT Treatment [facility] - [place] [address] [place], [place] [address] Carlota Jin MD 1 [facility], [facility] [address] [place] [phone] 02/12/2025 6:45 EDT Treatment [facility] - [place] [address] [place], [place] [phone] Carlota Jin MD 1 [facility], [facility] [address] [place] [phone] 02/14/2025 6:45 EDT Treatment [facility] Dialysi - [place] [address] [place], [place] [address] Carlota Jin MD 1 [facility], [facility] [address] [place] [phone] 02/16/2025 6:45 EDT Treatment [facility] - [place] [address] [place] [address] Carlota Jin MD 1 [facility], [facility] [address] [place] [phone] 02/19/2025 6:45 EDT Treatment [facility] - [place] [address] [place], [place] [address] Carlota Jin MD 1 [facility], [facility] [address] [place] [phone] 02/21/2025 6:45 EDT Treatment [facility] Dial[facility]i - [place] [address] [place], [place] [address] Carlota Jin MD 1 [facility], Level [address] [place] [phone] documented as of this encounter Visit Diagnoses Not on filedocumented in this encounter Care Teams Blanker Operator Relationship Specialty Start Date End Date Ken Greer MD [address] [place] [address] PCP - General 07/07/23 documented as of this encounter
--- OUTSIDE RECORDS SUMMARY | 2024-12-05 12:19 | XMS_ITS | Encounter Summary ---
Author Organization [facility] Address [address] [place] [address] Care Team Providers Care Emt Name Role Phone Ken Greer MD Primary Care Provider [phone] Encounter Details Date Type Department Care Team (Latest Contact Info) Description 08/25/2023 6:45 EDT Treatment [facility] [address] [place], [place] [phone] Carlota Jin MD 1 [facility], Level [address] [place] [address] ESRD (end stage renal disease) ([facility]) (Primary Dx); Anemia of chronic renal failure, unspecified CKD stage; Hypoalbuminemia; Secondary hyperparathyroidism ([facility]) Social History Tobacco Use Types Packs/Day [...] - Temperature - - Respiratory Rate 16 08/25/2023 0634 EDT Oxygen Saturation - - Inhaled Oxygen Concentration - - Weight 90.4 kg (199 lb 4.7 oz) 08/25/2023 0632 E DT Height - - Body Mass Index 29.43 07/08/2023 0839 EDT documented in this encounter Miscellaneous Notes * Flowsheet Note - Marcela Cox RN - 08/25/2023 1404 EDT 08/25/23 1108 Post-Hemodialysis Assessment Total Blood Processed (L) 90.06 Liters Dialyzer Clearance Lightly streaked Treatment UFR (ml:kg:hr) 9.57 ml:kg:hr Critline refill Not done Fluid Removed (L) 3.5 L Post-Dialysis Scale Weight 87 kg (191 lb 12.8 oz) Wheelchair Weight 0 kg (0 lb) Prosthesis Weight 0 kg (0 lb) Post-Treatment Weight (kg) 87 Treatment Weight Change (kg) 3.4 kg Day Target Weight (kg) 87.4 Post Sitting/Lying BP 159/75 Post Sitting/Lying pulse 74 Post Standing BP 148/75 Post Standing Pulse 77 Temp 36.5 ??C (97.7 ??F) Temp src [...] [facility] [address] [place] [id number] Carlota Jin MD 1 [facility], Level [address] [place] [address] 12/08/2024 6:45 EST Treatment [facility] Dialysi [facility] [address] [place] [id number] Carlota Jin MD 1 [facility], [facility] 2 [place] [phone] 12/11/2024 6:45 EST Treatment [facility] Dialysi - [place] [address] [place], [place] [phone] Carlota Jin MD 1 [facility], [facility] [address] [place] [phone] 12/13/2024 6:45 EST Treatment [facility] Dialysi - [place] [address] [place], [place] [phone] Carlota Jin MD 1 [facility], [facility] [address] [place] [phone] 12/15/2024 6:45 EST Treatment [facility] D[facility]ysi - [place] [address] [place], [place] [phone] Carlota Jin MD 1 [facility], [facility] [address] [place] [phone] 12/18/2024 6:45 EST Treatment [facility] Dialysi - [place] [address] [place], [place] [phone] Carlota Jin MD 1 [facility], [facility] 2 [place] [phone] 12/20/2024 6:45 EST Treatment [facility] - [place] [address] [place], [place] [phone] Carlota Jin MD 1 [facility], [facility] [address] [place] [phone] 12/22/2024 6:45 EST Treatment [facility]ysi - [place] [address] [place], [place] [id number] Carlota Jin MD 1 [facility], [facility] [address] [place] [phone] 12/25/2024 6:45 EST Treatment [facility] - [place] [address] [place], [place] [id number] Carlota Jin MD 1 [facility], [facility] 2 [place] [phone] 12/27/2024 6:45 EST Treatment [facility] D[facility]i - [place] [address] [place], [place] [phone] Carlota Jin MD [address] [place] [address], [facility] [address] [place] [phone] 12/29/2024 6:45 EST Treatment [facility] Dialysi - [place] [address] [place], [place] [phone] Carlota Jin MD 1 [facility], [facility] 2 [place] [phone] 01/01/2025 6:45 EDT Treatment [facility] - [place] [address] [place], [place] [id number] Carlota Jin MD 1 [facility], [facility] 2 [place] [phone] 01/03/2025 6:45 EDT Treatment [facility] Dialysi - [place] [address] [place], [place] [phone] Carlota Jin MD 1 [facility], [facility] 2 [place] [phone] 01/05/2025 6:45 EDT Treatment [facility] - [place] [address] [place], [place] [id number] Carlota Jin MD 1 [facility], [facility] 2 [place] [phone] 01/08/2025 6:45 EDT Treatment [facility] - [place] [address] [place] [address] Carlota Jin MD 1 [facility], [address] [phone] 01/10/2025 6:45 EDT Treatment [facility] - [place] [address] [place], [place] [id number] Carlota Jin MD 1 [facility], [address] [phone] 01/12/2025 6:45 EDT Treatment [facility] - [place] [address] [place] [address] Carlota Jin MD 1 [facility], [facility] 2 [place] [phone] 01/15/2025 6:45 EDT Treatment [facility] - [place] [address] [place], [place] [id number] Carlota Jin MD 1 [facility], [facility] 2 [place] [phone] 01/17/2025 6:45 EDT Treatment [facility] - [place] [address] [place], [place] [phone] Carlota Jin MD 1 [facility], [facility] 2 [place] [phone] 01/19/2025 6:45 EDT Treatment [facility] - [place] [address] [place], [place] [phone] Carlota Jin MD 1 [facility], [facility] 2 [place] [phone] 01/22/2025 6:45 EDT Treatment [facility] - [place] [address] [place], [place] [id number] Carlota Jin MD 1 [facility], [address] [phone] 01/24/2025 6:45 EDT Treatment [facility] - [place] [address] [place], [place] [id number] Carlota Jin MD 1 [facility], [facility] 2 [place] [phone] 01/26/2025 6:45 EDT Treatment [facility] Dialysi - [place]ñ [address] [place], [place] [phone] Carlota Jin MD 1 [facility], [facility] 2 [place] [phone] 01/29/2025 6:45 EDT Treatment [facility] - [place] [address] [place], [place] [id number] Carlota Jin MD 1 [facility], [address] [phone] 01/31/2025 6:45 EDT Treatment [facility] Dialysi - [place] [address] [place] [id number] Carlota Jin MD 1 [facility], [address] [phone] 02/02/2025 6:45 EDT Treatment [facility] - [place] [address] [place], [place] [id number] Carlota Jin MD 1 [facility], [address] [phone] 02/05/2025 6:45 EDT Treatment [facility] Dial[facility]i [facility] [address] [place], [place] [id number] Carlota Jin MD 1 [facility], [address] [phone] 02/07/2025 6:45 EDT Treatment [facility] - [place] [address] [place], [place] [id number] Carlota Jin MD 1 [facility], [address] [phone] 02/09/2025 6:45 EDT Treatment [facility] - [place] [address] [place], [place] [id number] Carlota Jin MD 1 [facility], [facility] 2 [place] [phone] 02/12/2025 6:45 EDT Treatment [facility] - [place] [address] [place], [place] [id number] Carlota Jin MD 1 [facility], [address] [phone] 02/14/2025 6:45 EDT Treatment [facility] D[facility] - [place] [address] [place], [place] [id number] Carlota Jin MD 1 [facility], [address] [phone] 02/16/2025 6:45 EDT Treatment [facility] - [place] [address] [place], [place] [id number] Carlota Jin MD [address] [phone] 02/19/2025 6:45 EDT Treatment [facility] - [place] [address] [place], [place] [id number] Carlota Jin MD 1 [facility], [address] [phone] 02/21/2025 6:45 EDT Treatment [facility]i [place] [address] [place], [place] [phone] Carlota Jin MD [address] [phone] documented as of this encounter Procedures Procedure Name Priority Date/Time Associated Diagnosis Comments COMPLETE BLOOD COUNT Routine 08/25/2023 6:37 EDT ESRD (end stage renal disease) ([facility]) HEMODIALYSIS Routine 08/25/2023 6:34 EDT ESRD (end stage renal disease) ([facility]) documented in this encounter Results * (ABNORMAL) COMPLETE BLOOD COUNT (08/25/2023 6:37 EDT) WBC 6.77 4.00 - 10.40 K/cmm 08/25/2023 21:51 [facility] RBC 3.08(L) 4.36 - 5.78 M/cmm 08/25/2023 21:51 [facility] Hemoglobin 9.6(L) 13.8 - 17.3 g/dL 08/25/2023 21:51 [facility] HCT 29.2(L) 39.5 - 50.2 % 08/25/2023 21:51 [facility] MCV 95 81 - 95 fL 08/25/2023 21:51 [facility] MCH 31.2 27.6 - 33.0 pg 08/25/2023 21:51 [facility] MCHC 32.9 32.8 - 36.4 g/dL 08/25/2023 21:51 [facility] RDW-CV 12.4 <14.2 % 08/25/2023 21:51 [facility] RDW-SD 43.1 <46.0 fl 08/25/2023 21:51 [facility] PLT 219 141 - 377 K/cmm 08/25/2023 21:51 [facility] MPV 12.4 9.5 - 12.7 fL 08/25/2023 21:51 [facility] Blood VENOUS BLOOD / Unknown Venipuncture / Unknown 08/25/2023 6:37 EDT 08/25/2023 6:37 EDT us Carlota Jin MD HEMATOLOGY & PF4 ORDERABL ES Final Result [facility] [address] [place] [address] documented in this encounter Visit Diagnoses Diagnosis ESRD (end stage renal disease) ([facility] Primary End stage renal disease [...] oral, ONCE IN DIALYSIS, 1 dose, On Wed08/25/23 at 0700, Routine, DialysisIndications:ESRD (end stage renal disease) ([facility]),Secondary hyperparathyroidism ([facility]) Given 08/25/2023 6:52 EDT 2 Tablets epoetin ken (EPOGEN) 20,000 unit/2 mL injection 1,500 Units 1,500 Units, intravenous, ONCE IN DIALYSIS, 1 dose, On Wed08/25/23 at 0700, Routine, DialysisIndications:ESRD (end stage renal disease) ([facility]),Anemia of chronic renal failure, unspecified CKD stage Given 08/25/2023 6:52 EDT 1,500 Units heparin injection 9,000 Units 9,000 Units, intravenous, ONCE IN DIALYSIS, 1 dose, On Wed08/25/23 at 0700, Routine, Dialysis, Now x1 bolus 4500 units to be given at the beginning of dialysis 1500 units/hour to be given over the course of dialysis (9000 units total). Stop 1 hour prior to end of treatment. To be administered per Policy [id number].Indications:ESRD (end stage renal disease) ([facility]) Given 08/25/2023 6:52 EDT 9,000 Units LiquaCel liquid protein liquid 30 mL 30 mL, oral, ONCE IN DIALYSIS, 1 dose, On Wed08/25/23 at 0700, RoutineIndications:Hypoalbuminemi a,ESRD (end stage renal disease) ([facility]) Given 08/25/2023 6:53 EDT 30 mL documented in this encounter Orders Dialysis Count Last Ordered Date First Orde red Date HEMODIALYSIS 1 08/25/2023 documented in this encounter Care Teams Emt Relationship Specialty Start Date End Date Ken Greer MD [address] [facility] [facility] [place] [address] PCP - General 07/07/23 documented as of this encounter
--- OUTSIDE RECORDS SUMMARY | 2024-12-05 12:19 | XMS_ITS | Encounter Summary ---
Author Organization [facility] Address [address] [place] [address] Care Team Providers Care Hard Tile Setter Apprentice Name Role Phone Ken Greer MD Primary Care Provider [phone] Encounter Details Date Type Department Care Team (Latest Contact Info) Description 08/30/2023 6:45 EST Treatment [facility] [address] [place], [place] [id number] Carlota Jin MD 1 [facility], Level [address] [place] [address] ESRD (end stage renal disease) ([facility]) (Primary Dx); Anemia of chronic renal failure, unspecified CKD stage; Hypoalbuminemia; Secondary hyperparathyroidism ([facility]) Social History Tobacco Use Types [...] - Temperature - - Respiratory Rate 16 08/30/2023 0636 EST Oxygen Saturation - - Inhaled Oxygen Concentration - - Weight 91 kg (200 lb 9.9 oz) 08/30/2023 0630 EST Height - - Body Mass Index 29.63 07/08/2023 0839 EDT documented in this encounter Miscellaneous Notes * Flowsheet Note - Marcela Cox RN - 08/30/2023 1400 EST 08/30/23 1106 Post-Hemodialysis Assessment Total Blood Processed (L) 90.43 Liters On Line Clearance: spKt/V 1.46 spKt/V Dialyzer Clearance Lightly streaked Treatment UFR (ml:kg:hr) 9.47 ml:kg:hr Final Critline Profile (%/hr) -2.9 Final Profile Profile A Critline refill Negative (32.2-32.4) Fluid Removed (L) 3.5 L Post-Dialysis Scale Weight 87.6 kg (193 lb 2 oz) Wheelchair Weight 0 kg (0 lb) Prosthesis Weight 0 kg (0 lb) Post-Treatment Weight (kg) 87.6 Treatment Weight Change (kg) 3.4 kg Day Target Weight (kg) 88 Post Sitting/Lying BP 162/81 Post Sitting/Lying pulse 61 Post Standing BP 137/74 Post Standing Pulse 65 Temp 35.6 ??C (96.1 ??F) Temp src Temporal Post access assessment AVF/AFG Hemostasis achieved Yes Note 10 minute hold time,both sites Orientation Alert and Oriented x3 Yes [...] EST Treatment [facility] [address] [place], [place] [id number] Carlota Jin MD 1 [facility], [address] [place] [address] 12/08/2024 6:[address] [facility] [place] [address] [place], [place] [id number] Carlota Jin MD 1 [facility], [facility] [address] [place] [phone] 12/11/2024 6:[address] [facility] [place] [address] [place], [place] [id number] Carlota Jin MD 1 [facility], [facility] [address] [place] [phone] 12/13/2024 6:[address] [facility] [place] [address] [place], [place] [id number] Carlota Jin MD 1 [facility], [facility] [address] [place] [phone] 12/15/2024 6:[address] [facility] [place] [address] [place], [place] [id number] Carlota Jin MD 1 [facility], [facility] [address] [place] [phone] 12/18/2024 6:[address] [facility] [place] [address] [place], [place] [id number] Carlota Jin MD 1 [facility], [facility] [address] [place] [phone] 12/20/2024 6:[address] [facility] [place] [address] [place], [place] [id number] Carlota Jin MD 1 [facility], [address] [place] [phone] 12/22/2024 6:[address] [facility] [place] [address] [place], [place] [id number] Carlota Jin MD 1 [facility], [facility] [address] [place] [phone] 12/25/2024 6:[address] [facility] [place] [address] [place], [place] [id number] Carlota Jin MD 1 [facility], [facility] [address] [place] [phone] 12/27/2024 6:[address] [facility] [place] [address] [place], [place] [id number] Carlota Jin MD 1 [facility], [facility] [address] [place] [phone] 12/29/2024 6:[address] [facility] [address] [place] [address] Carlota Jin MD 1 [facility], [facility] [address] [place] [phone] 01/01/2025 6:[address] [facility] [address] [place], [place] [id number] Carlota Jin MD 1 [facility], [facility] [address] [place] [phone] 01/03/2025 6:[address] [facility] [place] [address] [place], [place] [id number] Carlota Jin MD 1 [facility], [facility] [address] [place] [phone] 01/05/2025 6:[address] [facility] [place] [address] [place], [place] [id number] Carlota Jin MD 1 [facility], [facility] [address] [place] [phone] 01/08/2025 6:[address] [facility] [place] [address] [place] [address] Carlota Jin MD [address] [place] [address], [facility] [address] [place] [phone] 01/10/2025 6:[address] [facility] [place] [address] [place], [place] [id number] Carlota Jin MD [address] [place] [address], [facility] [address] [place] [phone] 01/12/2025 6:[address] [facility] [place] [address] [place], [place] [id number] Carlota Jin MD 1 [facility], [facility] [address] [place] [phone] 01/15/2025 6:[address] [facility] [place] [address] [place], [place] [id number] Carlota Jin MD 1 [facility], [facility] [address] [place] [phone] 01/17/2025 6:[address] [facility] [place] [address] [place], [place] [id number] Carlota Jin MD 1 [facility], [facility] [address] [place] [phone] 01/19/2025 6:[address] [facility] [place] [address] [place], [place] [id number] Carlota Jin MD 1 [facility], [facility] [address] [place] [phone] 01/22/2025 6:[address] [facility] [place] [address] [place], [place] [id number] Carlota Jin MD 1 [facility], [facility] [address] [place] [phone] 01/24/2025 6:[address] [facility] [place] [address] [place], [place] [id number] Carlota Jin MD 1 [facility], [facility] [address] [place] [phone] 01/26/2025 6:[address] [facility] [place] [address] [place], [place] [id number] Carlota Jin MD 1 [facility], [facility] 2 [place] [phone] 01/29/2025 6:[address] [facility] [place] [address] [place], [place] [id number] Carlota Jin MD 1 [facility], [facility] [address] [place] [phone] 01/31/2025 6:[address] [facility] [place] [address] [place], [place] [id number] Carlota Jin MD 1 [facility], [facility] [address] [place] [phone] 02/02/2025 6:[address] [facility] [place] [address] [place], [place] [id number] Carlota Jin MD 1 [facility], [facility] [address] [place] [phone] 02/05/2025 6:[address] [facility] [place] [address] [place], [place] [address] Carlota Jin MD 1 [facility], [facility] [address] [place] [phone] 02/07/2025 6:[address] [facility] [place] [address] [place], [place] [id number] Carlota Jin MD 1 [facility], [facility] [address] [place] [phone] 02/09/2025 6:[address] [facility] [place] [address] [place], [place] [id number] Carlota Jin MD 1 [facility], [facility] [address] [place] [phone] 02/12/2025 6:[address] [facility] [place] [address] [place] [address] Carlota Jin MD 1 [facility], [facility] [address] [place] [phone] 02/14/2025 6:[address] [facility] [place] [address] [place], [place] [address] Carlota Jin MD 1 [facility], [address] [phone] 02/16/2025 6:[address] [facility] [place] [address] [place], [place] [id number] Carlota Jin MD 1 [facility], [address] [phone] 02/19/2025 6:[address] [facility] [place] [address] [place], [place] [id number] Carlota Jin MD 1 [facility], [address] [phone] 02/21/2025 6:[address] [facility] [place] [address] [place], [place] [id number] Carlota Jin MD 1 [facility], [facility] [address] [place] [phone] documented as of this encounter Procedures Procedure Name Priority Date/Time Associated Diagnosis Comments POSTDIALYSIS BUN WITH URR CALCULATION Routine 08/30/2023 11:05 EST ESRD (end stage renal disease) ([facility]) TRANSFERRIN SATURATION Routine 08/30/2023 6:40 EST ESRD (end stage renal disease) ([facility]) DIALYSIS ROUTINE - DIALYSIS ONLY (BUN, K, NA, CL, CO2, SANJEEV, ALB, MG, PHOS, ALKP, AST) Routine 08/30/2023 6:40 EST ESRD (end stage renal disease) ([facility]) PROFILE IRON STUDIES (INCLUDES IRON, IBC, AND FERRITIN) Routine 08/30/2023 6:40 EST ESRD (end stage renal disease) ([facility]) FERRITIN Routine 08/30/2023 6:40 EST ESRD (end stage renal disease) ([facility]) HEMODIALYSIS Routine 08/30/2023 6:36 EST ESRD (end stage renal disease) ([facility]) documented in this encounter Results * (ABNORMAL) POSTDIALYSIS BUN WITH URR CALCULATION (08/30/2023 11:05 EST) BUN, Postdialysis 23 10 - 26 mg/dL 08/30/2023 22:04 [facility] Urea Reduction Rate 71.3 Not Established % 08/30/2023 22:04 EST [facility] Comment: NOTE: Reference range not established for Urea Reduction Rate. BUN 80(H) 10 - 26 mg/dL 08/30/2023 22:04 [facility] Blood VENOUS BLOOD / Unknown Venipuncture / Unknown 08/30/2023 11:05 EST 08/30/2023 11:05 EST us Carlota Jin MD CHEMISTRY & BLOOD GAS ORD ERABLES Final Result [facility] [address] [place] [address] * (ABNORMAL) FERRITIN (08/30/2023 6:40 EST) Ferritin 546(H) 22 - 322 ng/mL 08/31/2023 9:26 EST [facility] Blood VENOUS BLOOD / Unknown Venipuncture / Unknown 08/30/2023 6:40 EST 08/30/2023 6:40 EST Carlota Jin MD CHEMISTRY & BLOOD GAS ORD ERABLES Final Result Performing Organization Address City/[facility] Co de Phone Number [facility] [address] [place] [address] * (ABNORMAL) TRANSFERRIN SATURATION (08/30/2023 6:40 EST) Iron 68 49 - 181 ??g/dL 08/30/2023 22:20 EST [facility] Comment:Slight hemolysis bernardino ntified, interpret with caution as results may be affected due to hemolysis. Iron Binding Capacity 211(L) 240 - 450 ??g/dL 08/30/2023 22:20 EST [facility] Transferrin Saturation 32 15 - 45 % 08/30/2023 22:20 EST [facility] Blood VENOUS BLOOD / Unknown Venipuncture / Unknown 08/30/2023 6:40 EST 08/30/2023 6:40 EST Carlota Jin MD CHEMISTRY & BLOOD GAS ORD ERABLES Final Result Performing Organization Address City/[facility]/ZIP Co de Phone Number [facility] [address] [place] [address] * (ABNORMAL) DIALYSIS ROUTINE - DIALYSIS ONLY (BUN, K, NA, CL, CO2, SANJEEV, ALB, MG, PHOS, ALKP, AST) (08/30/2023 6:40 EST) Sodium 136 136 - 145 mmol/L 08/30/2023 22:04 EST [facility] Potassium 6.6(H) 3.5 - 5.0 mmol/L 08/30/2023 22:04 [facility] Comment:Slight hemolysis bernardino ntified, interpret with caution as results may be affected due to hemolysis. Chloride 101 96 - 110 mmol/L 08/30/2023 22:04 [facility] CO2 Total 20(L) 22 - 32 mmol/L 08/30/2023 22:04 [facility] Calcium 8.3(L) 8.5 - 10.5 mg/dL 08/30/2023 22:04 [facility] Albumin 3.2(L) 3.4 - 4.9 g/dL 08/30/2023 22:04 [facility] Comment:Slight hemolysis bernardino ntified, interpret with caution as results may be affected due to hemolysis. Phosphorus 8.2(H) 2.5 - 4.5 mg/dL 08/30/2023 22:04 [facility] Comment:Slight hemolysis bernardino ntified, interpret with caution as results may be affected due to hemolysis. Calcium Phos Product 68.1 See Note mg/dL 08/30/2023 22:04 [facility] Comment: NOTE: Reference range not established BUN, Predialysis 80(H) 10 - 26 mg/dL 08/30/2023 22:04 [facility] Comment:Slight hemolysis bernardino ntified, interpret with caution as results may be affected due to hemolysis. AST 29 15 - 46 U/L 08/30/2023 22:04 [facility] Comment:Slight hemolysis bernardino ntified, interpret with caution as results may be affected due to hemolysis. Alkaline Phosphatase 101 38 - 126 U/L 08/30/2023 22:04 [facility] Comment:Slight hemolysis bernardino ntified, hemolysis will decrease ALKP result. Interpret with caution as results may be affected due to hemolysis. Magnesium 2.5 1.7 - 2.8 mg/dL 08/30/2023 22:04 [facility] Comment:Slight hemolysis bernardino ntified, interpret with caution as results may be affected due to hemolysis. Anion Gap 15(H) 5 - 14 mmol/L 08/30/2023 22:04 [facility] Calculated Calcium 8.9 8.9 - 10.5 mg/dL 08/30/2023 22:04 EST [facility] Comment:Slight hemolysis bernardino ntified, interpret with caution as results may be affected due to hemolysis. Blood VENOUS BLOOD / Unknown Venipuncture / Unknown 08/30/2023 6:40 EST 08/30/2023 6:40 EST us Carlota Jin MD CHEMISTRY & BLOOD GAS ORD ERABLES Final Result [facility] [address] [place] [address] documented in this encounter Visit Diagnoses Diagnosis ESRD (end stage renal disease) ([facility])- Primary End stage renal disease Anemia of chronic renal failure, unspecified CKD stage Hypoalbuminemia Other disorders of plasma protein metabolism Secondary hyperparathyroidism ([facility]) Secondary hyperparathyroidism (of renal origin) documented in this encounter Administered Medications Inactive Administered Medications - up to 3 most recent administrations Medication Order MAR Action Action Date Dose Rate Site calcium carbonate (TUMS) tablet 500 mg (200 mg elemental calcium) 2 Tablet 2 Tablet, oral, ONCE IN DIALYSIS, 1 dose, On Wed08/30/23 at 0700, Routine, DialysisIndications:ESRD (end stage renal disease) ([facility]),Secondary hyperparathyroidism ([facility]) Given 08/30/2023 6:59 EST 2 Tablets epoetin ken (EPOGEN) 20,000 unit/2 mL injection 1,500 Units 1,500 Units, intravenous, ONCE IN DIALYSIS, 1 dose, On Wed08/30/23 at 0700, Routine, DialysisIndications:ESRD (end stage renal disease) ([facility]),Anemia of chronic renal failure, unspecified CKD stage Given 08/30/2023 6:59 EST 1,500 Units heparin injection 9,000 Units 9,000 Units, intravenous, ONCE IN DIALYSIS, 1 dose, On Wed08/30/23 at 0700, Routine, Dialysis, Now x1 bolus 4500 units to be given at the beginning of dialysis 1500 units/hour to be given over the course of dialysis (9000 units total). Stop 1 hour prior to end of treatment. To be administered per Policy [id number].Indications:ESRD (end stage renal disease) ([facility]) Given 08/30/2023 6:59 EST 9,000 Units LiquaCel liquid protein liquid 30 mL 30 mL, oral, ONCE IN DIALYSIS, 1 dose, On 08/30/23 at 0700, RoutineIndications:Hypoalbuminemi a,ESRD (end stage renal disease) ([facility]) Given 08/30/2023 6:59 EST 30 mL documented in this encounter Orders Dialysis Count Last Ordered Date First Orde red Date HEMODIALYSIS 1 08/30/2023 documented in this encounter Care Teams Hard Tile Setter Apprentice Relationship Specialty Start Date End Date Ken Greer MD [address] [place] [address] PCP - General 07/07/23 documented as of this encounter
--- OUTSIDE RECORDS SUMMARY | 2024-12-05 12:19 | XMS_ITS | Encounter Summary ---
Author Organization [facility] Address [address] [place] [address] Care Team Providers Care Recoater Name Role Phone Ken Greer MD Primary Care Provider [phone] Encounter Details Date Type Department Care Team (Latest Contact Info) Description 08/13/2023 6:45 EDT Treatment [facility] [address] [place], [place] [address] Carlota Jin MD 1 [facility], Level 2 [place] [address] ESRD (end stage renal disease) ([facility]) (Primary Dx); Anemia of chronic renal failure, unspecified CKD stage; Hypoalbuminemia; Secondary hyperparathyroidism ([facility]) Social History Tobacco Use Types Packs/Day Years [...] - Temperature - - Respiratory Rate 16 08/13/2023 0641 EDT Oxygen Saturation - - Inhaled Oxygen Concentration - - Weight 90.9 kg (200 lb 6.4 oz) 08/13/2023 0641 E DT Height - - Body Mass Index 29.59 07/08/2023 0839 EDT documented in this encounter Miscellaneous Notes * Flowsheet Note - Marcela Cox RN - 08/13/2023 8977 EDT 08/13/23 1117 Post-Hemodialysis Assessment Total Blood Processed (L) 89.62 Liters On Line Clearance: spKt/V 1.5 spKt/V Dialyzer Clearance Lightly streaked Treatment UFR (ml:kg:hr) 11.02 ml:kg:hr Final Critline Profile (%/hr) -2.46 Final Profile Profile A Critline refill Negative (32.1/31.7) Fluid Removed (L) 4 L Post-Dialysis Scale Weight 88 kg (194 lb 0.1 oz) Wheelchair Weight 0 kg (0 lb) Prosthesis Weight 1 kg (2 lb 3.3 oz) Post-Treatment Weight (kg) 87 Treatment Weight Change (kg) 3.9 kg Day Target Weight (kg) 87.4 Post Sitting/Lying BP 123/72 Post Sitting/Lying pulse 73 Post Standing BP 129/70 Post Standing Pulse 71 Temp 36.2 ??C (97.2 ??F) Temp src [...] EST Treatment [facility] [place] [address] [place] [address] Carlota Jin MD 1 [facility], Level [address] [place] [address] 12/08/2024 6:45 EST Treatment [facility] [place] [address] [place], [place] [phone] Carlota Jin MD 1 [facility], [facility] 2 [place] [phone] 12/11/2024 6:45 EST Treatment [facility] [place] [address] [place], [place] [id number] Carlota Jin MD 1 [facility], [facility] 2 [place] [phone] 12/13/2024 6:45 EST Treatment [facility] [place] [address] [place], [place] [id number] Carlota Jin MD 1 [facility], [facility] 2 [place] [phone] 12/15/2024 6:45 EST Treatment [facility] [place] [address] [place], [place] [id number] aCrlota Jin MD 1 [facility], [facility] 2 [place] [phone] 12/18/2024 6:45 EST Treatment [facility] [place] [address] [place], [place] [id number] Carlota Jin MD 1 [facility], [facility] 2 [place] [phone] 12/20/2024 6:45 EST Treatment [facility] [place] [address] [place], [place] [id number] Carlota Jin MD 1 [facility], [facility] 2 [place] [phone] 12/22/2024 6:45 EST Treatment [facility] [place] [address] [place], [place] [id number] Carlota Jin MD 1 [facility], [facility] 2 [place] [phone] 12/25/2024 6:45 EST Treatment [facility] [place] [address] [place], [place] [id number] Carlota Jin MD 1 [facility], [facility] 2 [place] [phone] 12/27/2024 6:45 EST Treatment [facility] [place] [address] [place] [address] Carlota Jin MD 1 [facility], [facility] 2 [place] [phone] 12/29/2024 6:45 EST Treatment [facility] [place] [address] [place] [address] Carlota Jin MD 1 [facility], [facility] 2 [place] [phone] 01/01/2025 6:45 EDT Treatment [facility] [place] [address] [place], [place] [id number] Carlota Jin MD 1 [facility], [facility] 2 [place] [phone] 01/03/2025 6:45 EDT Treatment [facility] [place] [address] [place], [place] [id number] Carlota Jin MD 1 [facility], [facility] 2 [place] [phone] 01/05/2025 6:45 EDT Treatment [facility] [place] [address] [place], [place] [id number] Carlota Jin MD 1 [facility], [facility] 2 [place] [phone] 01/08/2025 6:45 EDT Treatment [facility] [place] [address] [place] [address] Carlota Jin MD [address] [place] [address], [address] [phone] 01/10/2025 6:45 EDT Treatment [facility] [place] [address] [place], [place] [phone] Carlota Jin MD 1 [facility], [facility] 2 [place] [phone] 01/12/2025 6:45 EDT Treatment [facility] [place] [address] [place], [place] [id number] Carlota Jin MD 1 [facility], [facility] 2 [place] [phone] 01/15/2025 6:45 EDT Treatment [facility] [place] [address] [place] [address] Carlota Jin MD 1 [facility], [facility] 2 [place] [phone] 01/17/2025 6:45 EDT Treatment [facility] [place] [address] [place], [place] [phone] Carlota Jin MD 1 [facility], [facility] 2 [place] [phone] 01/19/2025 6:45 EDT Treatment [facility] [place] [address] [place] [address] Carlota Jin MD 1 [facility], [address] [phone] 01/22/2025 6:45 EDT Treatment [facility] [place] [address] [place], [place] [phone] Carlota Jni MD 1 [facility], [address] [phone] 01/24/2025 6:45 EDT Treatment [facility] [place] [address] [place] [address] Carlota Jin MD 1 [facility], [facility] 2 [place] [phone] 01/26/2025 6:45 EDT Treatment [facility] [place] [address] [place], [place] [phone] Carlota Jin MD 1 [facility], [facility] 2 [place] [phone] 01/29/2025 6:45 EDT Treatment [facility] [place] [address] [place], [place] [address] Carlota Jin MD 1 [facility], [facility] 2 [place] [phone] 01/31/2025 6:45 EDT Treatment [facility] [place] [address] [place], [place] [phone] Carlota Jin MD [address] [place] [address], [facility] 2 [place] [phone] 02/02/2025 6:45 EDT Treatment [facility] [place] [address] [place] [address] Carlota Jni MD 1 [facility], [facility] 2 [place] [phone] 02/05/2025 6:45 EDT Treatment [facility] [place] [address] [place] [address] Carlota Jin MD [address] [place] [address], [facility] 2 [place] [phone] 02/07/2025 6:45 EDT Treatment [facility] [place] [address] [place], [place] [phone] Carlota Jin MD [address] [place] [address], [facility] 2 [place] [phone] 02/09/2025 6:45 EDT Treatment [facility] [place] [address] [place], [place] [address] Carlota Jin MD 1 [facility], [address] [phone] 02/12/2025 6:45 EDT Treatment [facility] [place] [address] [place] [address] Carlota Jin MD 1 [facility], [address] [phone] 02/14/2025 6:45 EDT Treatment [facility] [place] [address] [place], [place] [phone] Carlota Jin MD 1 [facility], [address] [phone] 02/16/2025 6:45 EDT Treatment [facility] [place] [address] [place], [place] [phone] Carlota Jin MD 1 [facility], [address] [phone] 02/19/2025 6:45 EDT Treatment [facility] [place] [address] [place], [place] [id number] Carlota Jin MD [address] [phone] 02/21/2025 6:45 EDT Treatment [facility] [place] [address] [place], [place] [phone] Carlota Jin MD 1 [facility], Level [address] [place] [phone] documented as of this encounter Procedures Procedure Name Priority Date/Time Associated Diagnosis Comments HEMODIALYSIS Routine 08/13/2023 6:42 EDT ESRD (end stage renal disease) ([facility]) documented in this encounter Visit Diagnoses Diagnosis ESRD (end stage renal disease) ([facility])- Primary End stage renal disease Anemia of chronic renal failure, unspecified CKD stage Hypoalbuminemia Other disorders of plasma protein metabolism Secondary hyperparathyroidism ([facility]) Secondary hyperparathyroidism (of renal origin) documented in this encounter Administered Medications Inactive Administered Medications - up to 3 most recent administrations Medication Order MAR Action Action Date Dose Rate Site calcium carbonate (TUMS) tablet 500 mg (200 mg elemental calcium) 2 Tablet 2 Tablet, oral, ONCE IN DIALYSIS, 1 dose, On Wed08/13/23 at 0700, Routine, DialysisIndications:ESRD (end stage renal disease) ([facility]),Secondary hyperparathyroidism ([facility]) Given 08/13/2023 7:04 EDT 2 Tablets epoetin ken (EPOGEN) 20,000 unit/2 mL injection 1,000 Units 1,000 Units, intravenous, ONCE IN DIALYSIS, 1 dose, On Wed08/13/23 at 0700, Routine, DialysisIndications:ESRD (end stage renal disease) ([facility]),Anemia of chronic renal failure, unspecified CKD stage Given 08/13/2023 7:05 EDT 1,000 Units heparin injection 9,000 Units 9,000 Units, intravenous, ONCE IN DIALYSIS, 1 dose, On Wed08/13/23 at 0700, Routine, Dialysis, Now x1 bolus 4500 units to be given at the beginning of dialysis 1500 units/hour to be given over the course of dialysis (9000 units total). Stop 1 hour prior to end of treatment. To be administered per Policy [id number].Indications:ESRD (end stage renal disease) ([facility]) Given 08/13/2023 6:50 EDT 9,000 Units LiquaCel liquid protein liquid 30 mL 30 mL, oral, ONCE IN DIALYSIS, 1 dose, On Wed08/13/23 at 0700, RoutineIndications:Hypoalbuminemi a,ESRD (end stage renal disease) ([facility]) Given 08/13/2023 7:05 EDT 30 mL documented in this encounter Orders Dialysis Count Last Ordered Date First Orde red Date HEMODIALYSIS 1 08/13/2023 documented in this encounter Care Teams Recoater Relationship Specialty Start Date End Date Ken Greer MD [address] [place] [address] PCP - General 07/07/23 documented as of this encounter
--- OUTSIDE RECORDS SUMMARY | 2024-12-05 12:19 | XMS_ITS | Encounter Summary ---
Author Organization [facility] Address [address] [place] [address] Care Team Providers Care It Security Specialist Name Role Phone Ken Greer MD Primary Care Provider [phone] Encounter Details Date Type Department Care Team (Late st Contact Info) Description 08/13/2023 Documentation Visit [facility] [address] [place], [place] [address] Melissa Crespo, RN Social History Tobacco Use [...] Center [facility] [place] [address] [place] [phone] Carlota Jin MD 1 [facility], Level [address] [place] [phone] 12/08/2024 6:45 EST Treatment [facility] [address] [place] [phone] Carlota Jin MD 1 [facility], [facility] 2 [place] [phone] 12/11/2024 6:45 EST Treatment [facility] [place] [address] [place], [place] [address] [phone] Carlota Jin MD 1 [facility], [facility] 2 [place] [phone] 12/13/2024 6:45 EST Treatment [facility] [place] [address] [place] [address] Carlota Jin MD 1 [facility], [facility] 2 [place] [phone] 12/15/2024 6:45 EST Treatment [facility] [place] [address] [place] [address] Carlota Jin MD 1 [facility], [facility] 2 [place] [phone] 12/18/2024 6:45 EST Treatment [facility] [place] [address] [place] [address] Carlota Jin MD 1 [facility], [facility] [address] [place] [phone] 12/20/2024 6:45 EST Treatment [facility] [place] [address] [place], [place] [phone] Carlota Jin MD 1 [facility], [facility] 2 [place] [phone] 12/22/2024 6:45 EST Treatment [facility] [place] [address] [place], [place] [phone] Carlota Jin MD 1 [facility], [facility] [address] [place] [phone] 12/25/2024 6:45 EST Treatment [facility] [place] [address] [place], [place] [phone] Carlota Jin MD 1 [facility], [facility] 2 [place] [phone] 12/27/2024 6:45 EST Treatment [facility] [place] [address] [place], [place] [phone] Carlota Jin MD 1 [facility], [facility] [address] [place] [phone] 12/29/2024 6:45 EST Treatment [facility] [place] [address] [place], [place] [address] Carlota Jin MD 1 [facility], [facility] 2 [place] [address] 01/01/2025 6:45 EDT Treatment [facility] [place] [address] [place], [place] [phone] Carlota Jin MD 1 [facility], [facility] 2 [place] [phone] 01/03/2025 6:45 EDT Treatment [facility] [place] [address] [place], [place] [phone] Carlota Jin MD 1 [facility], [facility] 2 [place] [phone] 01/05/2025 6:45 EDT Treatment [facility] [place] [address] [place] [address] Carlota Jin MD 1 [facility], [facility] 2 [place] [phone] 01/08/2025 6:45 EDT Treatment [facility] [place] [address] [place], [place] [phone] Carlota Jin MD 1 [facility], [address] [phone] 01/10/2025 6:45 EDT Treatment [facility] [place] [address] [place], [place] [phone] Carlota Jin MD 1 [facility], [address] [phone] 01/12/2025 6:45 EDT Treatment [facility] [place] [address] [place], [place] [phone] Carlota Jin MD 1 [facility], [address] [phone] 01/15/2025 6:45 EDT Treatment [facility] [place] [address] [place], [place] [phone] Carlota Jin MD 1 [facility], [facility] 2 [place] [phone] 01/17/2025 6:45 EDT Treatment [facility] [place] [address] [place], [place] [phone] Carlota Jin MD 1 [facility], [facility] 2 [place] [phone] 01/19/2025 6:45 EDT Treatment [facility] [place] [address] [place], [place] [phone] Carlota Jin MD 1 [facility], [facility] 2 [place] [phone] 01/22/2025 6:45 EDT Treatment [facility] [place] [address] [place] [address] Carlota Jin MD 1 [facility], [facility] [address] [place] [phone] 01/24/2025 6:45 EDT Treatment [facility] [place] [address] [place], [place] [phone] Carlota Jin MD 1 [facility], [facility] 2 [place] [phone] 01/26/2025 6:45 EDT Treatment [facility] [place] [address] [place], [place] [phone] Carlota Jin MD 1 [facility], [facility] [address] [place] [phone] 01/29/2025 6:45 EDT Treatment [facility] [place] [address] [place], [place] [address] Carlota Jin MD 1 [facility], [facility] [address] [place] [phone] 01/31/2025 6:45 EDT Treatment [facility] [place] [address] [place], [place] [phone] Carlota Jin MD 1 [facility], [facility] 2 [place] [phone] 02/02/2025 6:45 EDT Treatment [facility] [place] [address] [place], [place] [phone] Carlota Jin MD 1 [facility], [facility] [address] [place] [phone] 02/05/2025 6:45 EDT Treatment [facility] [place] [address] [place], [place] [phone] Carlota Jin MD 1 [facility], [facility] 2 [place] [phone] 02/07/2025 6:45 EDT Treatment [facility] [place] [address] [place], [place] [phone] Carlota Jin MD 1 [facility], [facility] 2 [place] [phone] 02/09/2025 6:45 EDT Treatment [facility] [place] [address] [place], [place] [phone] Carlota Jin MD 1 [facility], [facility] 2 [place] [phone] 02/12/2025 6:45 EDT Treatment [facility] [place] [address] [place], [place] [address] Carlota Jin MD 1 [facility], [facility] 2 [place] [phone] 02/14/2025 6:45 EDT Treatment [facility] [place] [address] [place], [place] [phone] Carlota Jin MD 1 [facility], [facility] 2 [place] [phone] 02/16/2025 6:45 EDT Treatment [facility] [place] [address] [place], [place] [phone] Carlota Jin MD 1 [facility], [facility] 2 [place] [phone] 02/19/2025 6:45 EDT Treatment [facility] [place] [address] [place] [address] Carlota Jin MD 1 [facility], [facility] 2 [place] [phone] 02/21/2025 6:45 EDT Treatment [facility] [place] [address] [place], [place] [phone] Carlota Jin MD 1 [facility], [facility] [address] [place] [phone] documented as of this encounter Visit Diagnoses Not on filedocumented in this encounter Care Teams It Security Specialist Relationship Specialty Start Date End Date Ken Greer MD [place] [address] PCP - General 07/07/23 documented as of this encounter
--- OUTSIDE RECORDS SUMMARY | 2024-12-05 12:20 | XMS_ITS | Encounter Summary ---
Author Organization [facility] Address [address] [place] [address] Care Team Providers Care Loan Broker Name Role Phone Ken Greer MD Primary Care Provider [phone] Encounter Details Date Type Department Care Team (Latest Contact Info) Description 08/02/2023 6:45 EDT Treatment [facility] [address] [place], [place] [phone] Carlota Jin MD [address] [facility], Level [address] [place] [address] ESRD (end stage renal disease) ([facility]) (Primary Dx); Anemia of chronic renal failure, unspecified CKD stage; Hypoalbuminemia; Secondary hyperparathyroidism ([facility]) Social History Tobacco Use Types Packs/Day [...] - Temperature - - Respiratory Rate 16 08/02/2023 0623 EDT Oxygen Saturation - - Inhaled Oxygen Concentration - - Weight 90.9 kg (200 lb 6.4 oz) 08/02/2023 0623 E DT Height - - Body Mass Index 29.59 07/08/2023 0839 EDT documented in this encounter Miscellaneous Notes * Flowsheet Note - Marcela Cox RN - 08/02/2023 1325 EDT 08/02/23 1040 Post-Hemodialysis Assessment Total Blood Processed (L) 87.2 Liters On Line Clearance: spKt/V 1.46 spKt/V Dialyzer Clearance Lightly streaked Treatment UFR (ml:kg:hr) 10.27 ml:kg:hr Critline refill Not done Fluid Removed (L) 3.78 L Post-Dialysis Scale Weight 88.4 kg (194 lb 14.2 oz) Wheelchair Weight 0 kg (0 lb) Prosthesis Weight 1 kg (2 lb 3.3 oz) (boots) Post-Treatment Weight (kg) 87.4 Treatment Weight Change (kg) 3.5 kg Day Target Weight (kg) 87.4 Post Sitting/Lying BP 141/79 Post Sitting/Lying pulse 66 Post Standing BP 134/70 Post Standing Pulse 71 Temp 36.5 ??C (97.7 ??F) Temp src Temporal Post access assessment AVF/AFG Hemostasis achieved Yes Note 10 minute hold both sites Orientation Alert and Oriented x3 Yes Time Yes Place Yes Person Yes Cooperative Yes Disoriented No Discharge Ambulation Methods Ambulatory with assistive device Ambulation device Cane Wrap up items Patient Response to Treatment Removed 3.78L out of original 4L UF goal, goal reduced d/t cramping at end of tx. Rinseback performed 10 min early d/t continued cramping with UF off Comments no concerns voiced post tx. d/c stable. documented in this encounter Plan of Treatment Upcoming Encounters Date Type Department Care Team (Late st Contact Info) Description 12/06/2024 6:45 EST Treatment [facility] [address] [place] [address] Carlota Jin MD 1 [facility], Level [address] [place] [address] 12/08/2024 6:45 EST Treatment [facility] [place] [address] [place], [place] [id number] Carlota Jin MD [address] [facility], [address] [place] [phone] 12/11/2024 6:45 EST Treatment [facility] [place] [address] [place], [place] [id number] Carlota Jin MD 1 [facility], [facility] [address] [place] [phone] 12/13/2024 6:45 EST Treatment [facility] [place] [address] [place], [place] [address] [phone] Carlota Jin MD [address] [facility], [facility] [address] [place] [phone] 12/15/2024 6:45 EST Treatment [facility] [place] [address] [place], [place] [address] Carlota Jin MD 1 [facility], [facility] [address] [place] [phone] 12/18/2024 6:45 EST Treatment [facility] [place] [address] [place], [place] [id number] Carlota Jin MD 1 [facility], [facility] [address] [place] [phone] 12/20/2024 6:45 EST Treatment [facility] [place] [address] [place] [address] Carlota Jin MD 1 [facility], [facility] [address] [place] [phone] 12/22/2024 6:45 EST Treatment [facility] [place] [address] [place], [place] [id number] Carlota Jin MD 1 [facility], [facility] [address] [place] [phone] 12/25/2024 6:45 EST Treatment [facility] [place] [address] [place], [place] [id number] Carlota Jin MD [address] [facility], [facility] [address] [place] [phone] 12/27/2024 6:45 EST Treatment [facility] [place] [address] [place], [place] [id number] Carlota Jin MD [address] [facility], [facility] 2 [place] [phone] 12/29/2024 6:45 EST Treatment [facility] [place] [address] [place] [address] Carlota Jin MD 1 [facility], [facility] [address] [place] [phone] 01/01/2025 6:45 EDT Treatment [facility] [place] [address] [place], [place] [id number] Carlota Jin MD 1 [facility], [facility] [address] [place] [phone] 01/03/2025 6:45 EDT Treatment [facility] [place] [address] [place], [place] [id number] Carlota Jin MD [address] [facility], [facility] 2 [place] [phone] 01/05/2025 6:45 EDT Treatment [facility] [place] [address] [place], [place] [id number] Carlota Jin MD [address] [facility], [facility] 2 [place] [phone] 01/08/2025 6:45 EDT [facility] [address] [place], [place] [phone] Carlota iJn MD [address] [place] [address], [facility] 2 [place] [phone] 01/10/2025 6:45 EDT Treatment [facility] [address] [place], [place] [phone] Carlota Jin MD [address] [facility], [facility] 2 [place] [phone] 01/12/2025 6:45 EDT [facility] [address] [place], [place] [phone] Carlota Jin MD [address] [facility], [facility] [address] [place] [phone] 01/15/2025 6:45 EDT Treatment [facility] [place] [address] [place], [place] [id number] Carlota Jin MD [address] [facility], [facility] 2 [place] [phone] 01/17/2025 6:45 EDT Treatment [facility] [place] [address] [place], [place] [phone] Carlota Jin MD [address] [facility], [address] [phone] 01/19/2025 6:45 EDT Treatment [facility] [place] [address] [place], [place] [phone] Carlota Jin MD [address] [facility], [address] [phone] 01/22/2025 6:45 EDT Treatment [facility] [place] [address] [place], [place] [id number] Carlota Jin MD [address] [phone] 01/24/2025 6:45 EDT Treatment [facility] [place] [address] [place], [place] [phone] Carlota Jin MD [address] [phone] 01/26/2025 6:45 EDT Treatment [facility] [place] [address] [place], [place] [id number] Carlota Jin MD [address] [facility], [facility] 2 [place] [phone] 01/29/2025 6:45 EDT Treatment [facility] [place] [address] [place], [place] [id number] Carlota Jin MD 1 [facility], [facility] 2 [place] [phone] 01/31/2025 6:45 EDT Treatment [facility] [place] [address] [place], [place] [phone] Carlota Jin MD [address] [facility], [facility] 2 [place] [phone] 02/02/2025 6:45 EDT Treatment [facility] [place] [address] [place], [place] [phone] Carlota Jin MD [address] [facility], [facility] 2 [place] [phone] 02/05/2025 6:45 EDT Treatment [facility] [place] [address] [place] [address] Carlota Jin MD [address] [facility], [facility] 2 [place] [phone] 02/07/2025 6:45 EDT Treatment [facility] [place] [address] [place], [place] [phone] Carlota Jin MD [address] [facility], [facility] 2 [place] [phone] 02/09/2025 6:45 EDT Treatment [facility] [place] [address] [place], [place] [id number] Carlota Jin MD [address] [facility], [facility] 2 [place] [phone] 02/12/2025 6:45 EDT Treatment [facility] [place] [address] [place], [place] [phone] Carlota Jin MD [address] [place] [address], [address] [phone] 02/14/2025 6:45 EDT Treatment [facility] [place] [address] [place], [place] [phone] Carlota Jin MD [address] [place] [address], [address] [phone] 02/16/2025 6:45 EDT Treatment [facility] [place] [address] [place], [place] [phone] Carlota Jin MD [address] [place] [address], [facility] [address] [place] [phone] 02/19/2025 6:45 EDT Treatment [facility] [place] [address] [place], [place] [phone] Carlota Jin MD [address] [place] [address], [facility] 2 [place] [phone] 02/21/2025 6:45 EDT Treatment [facility] [place] [address] [place], [place] [phone] Carlota Jin MD 1 [facility], [address] [place] [phone] documented as of this encounter Procedures Procedure Name Priority Date/Time Associated Diagnosis Comments HEMODIALYSIS Routine 08/02/2023 6:23 EDT ESRD (end stage renal disease) ([facility]) documented in this encounter Visit Diagnoses Diagnosis ESRD (end stage renal disease) ([facility])- Primary End stage renal disease Anemia of chronic renal failure, unspecified CKD stage Hypoalbuminemia Other disorders of plasma protein metabolism Secondary hyperparathyroidism ([facility]) Secondary hyperparathyroidism (of renal origin) documented in this encounter Administered Medications Inactive Administered Medications - up to 3 most recent administrations Medication Order MAR Action Action Date Dose Rate Site acetaminophen (TYLENOL) tablet 650 mg 650 mg, oral, EVERY 4 HOURS PRN, Starting on Wed08/02/23 at 0623, Until Wed08/02/23 at 1526, Pain, Routine, DialysisIndications:ESRD (end stage renal disease) ([facility]) Given 08/02/2023 10:16 EDT 650 mg Given 08/02/2023 6:38 EDT 650 mg calcium carbonate (TUMS) tablet 500 mg (200 mg elemental calcium) 2 Tablet 2 Tablet, oral, ONCE IN DIALYSIS, 1 dose, On Wed08/02/23 at 0645, Routine, DialysisIndications:ESRD (end stage renal disease) ([facility]),Secondary hyperparathyroidism ([facility]) Given 08/02/2023 6:37 EDT 2 Tablets epoetin ken (EPOGEN) 20,000 unit/2 mL injection 1,000 Units 1,000 Units, intravenous, ONCE IN DIALYSIS, 1 dose, On Wed08/02/23 at 0645, Routine, DialysisIndications:ESRD (end stage renal disease) ([facility]),Anemia of chronic renal failure, unspecified CKD stage Given 08/02/2023 6:37 EDT 1,000 Units heparin injection 9,000 Units 9,000 Units, intravenous, ONCE IN DIALYSIS, 1 dose, On Wed08/02/23 at 0645, Routine, Dialysis, Now x1 bolus 4500 units to be given at the beginning of dialysis 1500 units/hour to be given over the course of dialysis (9000 units total). Stop 1 hour prior to end of treatment. To be administered per Policy [id number].Indications:ESRD (end stage renal disease) ([facility]) Given 08/02/2023 6:37 EDT 9,000 Units LiquaCel liquid protein liquid 30 mL 30 mL, oral, ONCE IN DIALYSIS, 1 dose, On 08/02/23 at 0645, RoutineIndications:Hypoalbuminemia,ESRD (end stage renal disease) ([facility]) Given 08/02/2023 6:38 EDT 30 mL documented in this encounter Orders Dialysis Count Last Ordered Date First Orde red Date HEMODIALYSIS 1 08/02/2023 documented in this encounter Care Teams Loan Broker Relationship Specialty Start Date End Date Ken Greer MD [facility] [place] [address] PCP - General 07/07/23 documented as of this encounter
--- OUTSIDE RECORDS SUMMARY | 2024-12-05 12:20 | XMS_ITS | Encounter Summary ---
Author Organization [facility] Address [address] [place] [address] Care Team Providers Care Mechanical Maintenance Worker Name Role Phone Ken Greer MD Primary Care Provider [phone] Encounter Details Date Type Department Care Team (Latest Contact Info) Description 07/21/2023 6:[address] [facility] [address] [place], [place] [id number] Carlota Jin MD 1 [facility], Level [address] [place] [address] ESRD (end stage renal disease) ([facility]) (Primary Dx); Anemia of chronic renal failure, unspecified CKD stage; Hypoalbuminemia; Secondary hyperparathyroidism ([facility]) Social History Tobacco Use Types [...] - Temperature - - Respiratory Rate 16 07/21/2023 0626 EDT Oxygen Saturation - - Inhaled Oxygen Concentration - - Weight 89.4 kg (197 lb 1.5 oz) 07/21/2023 0627 E DT Height - - Body Mass Index 29.11 07/08/2023 0839 EDT documented in this encounter Miscellaneous Notes * Flowsheet Note - Marcela Cox RN - 07/21/2023 1127 EDT 07/21/23 1043 Post-Hemodialysis Assessment Total Blood Processed (L) 89.58 Liters On Line Clearance: spKt/V 1.46 spKt/V Dialyzer Clearance Lightly streaked Treatment UFR (ml:kg:hr) 8.05 ml:kg:hr Final Critline Profile (%/hr) -2.79 Final Profile Profile A Critline refill Positive (H!: 32.2 H2: 31.7) Fluid Removed (L) 3 L Post-Dialysis Scale Weight 86.6 kg (190 lb 14.7 oz) Wheelchair Weight 0 kg (0 lb) Prosthesis Weight 0 kg (0 lb) Post-Treatment Weight (kg) 86.6 Treatment Weight Change (kg) 2.8 kg Day Target Weight (kg) 86.9 Post Sitting/Lying BP 151/83 Post Sitting/Lying pulse 67 Post Standing BP 133/72 Post Standing Pulse 72 Temp 36.8 ??C (98.2 ??F) Temp [...] Dialysis Rounding - Skye Gomez NP - 07/21/2023 0675 EDT Dialysis Provider's Routine Assessment Gersonharish Kimaleks was seen and examined as appropriate during Dialysis. Pertinent lab results were reviewed. Changes since last visit: None Changes to current prescriptions/orders: None Skye Gomez NP documented in this encounter Plan of Treatment Upcoming Encounters Date Type Department Care Team (Late st Contact Info) Description 12/06/2024 6:45 EST Treatment [facility] [address] [place], [place] [id number] Carlota Jin MD 1 [facility], [facility] [address] [place] [phone] 12/08/2024 6:45 EST Treatment [facility] [address] [place], [place] [id number] Carlota Jin MD 1 [facility], [address] [phone] 12/11/2024 6:45 EST Treatment [facility] [address] [place], [place] [id number] Carlota Jin MD [address] [phone] 12/13/2024 6:45 EST [facility] [address] [place], [place] [id number] Carlota Jin MD 1 [facility], [address] [phone] 12/15/2024 6:45 EST Treatment [facility] [address] [place], [place] [id number] Carlota Jin MD 1 [facility], [address] [phone] 12/18/2024 6:45 EST Treatment [facility] - [place] [address] [place], [place] [address] Carlota Jin MD 1 [facility], [facility] 2 [place] [phone] 12/20/2024 6:45 EST Treatment [facility] [place] [address] [place], [place] [id number] Carlota Jin MD 1 [facility], [facility] 2 [place] [phone] 12/22/2024 6:45 EST Treatment [facility] [place] [address] [place], [place] [id number] Carlota Jin MD 1 [facility], [facility] [address] [place] [phone] 12/25/2024 6:45 EST Treatment [facility] [place] [address] [place], [place] [id number] Carlota Jin MD 1 [facility], [address] [phone] 12/27/2024 6:45 EST Treatment [facility] [place] [address] [place], [place] [id number] Carlota Jin MD 1 [facility], [facility] [address] [place] [phone] 12/29/2024 6:45 EST Treatment [facility] - [place] [address] [place], [place] [id number] Carlota Jin MD 1 [facility] [address] [place] [phone] 01/01/2025 6:45 EDT Treatment [facility] - [place] [address] [place], [place] [id number] Carlota Jin MD 1 [facility], [facility] 2 [place] [phone] 01/03/2025 6:45 EDT Treatment [facility] - [place] [address] [place], [place] [id number] Carlota Jin MD 1 [facility], [facility] [address] [place] [phone] 01/05/2025 6:45 EDT Treatment [facility] [place] [address] [place], [place] [id number] Carlota Jin MD 1 [facility], [facility] [address] [place] [phone] 01/08/2025 6:45 EDT Treatment [facility] [place] [address] [place] [address] Carlota Jin MD 1 [facility], [facility] [address] [place] [phone] 01/10/2025 6:45 EDT Treatment [facility] [address] [place], [place] [id number] Carlota Jin MD 1 [facility], [facility] [address] [place] [phone] 01/12/2025 6:45 EDT Treatment [facility] [place] [address] [place], [place] [id number] Carlota Jin MD 1 [facility], [facility] [address] [place] [phone] 01/15/2025 6:45 EDT Treatment [facility] [place] [address] [place], [place] [id number] Carlota Jin MD 1 [facility], [address] [phone] 01/17/2025 6:45 EDT Treatment [facility] [place] [address] [place], [place] [id number] Carlota Jin MD 1 [facility], [address] [phone] 01/19/2025 6:45 EDT Treatment [facility] [place] [address] [place], [place] [id number] Carlota Jin MD 1 [facility], [facility] 2 [place] [phone] 01/22/2025 6:45 EDT Treatment [facility] [place] [address] [place], [place] [id number] Carlota Jin MD 1 [facility], [facility] 2 [place] [phone] 01/24/2025 6:45 EDT Treatment [facility] [place] [address] [place], [place] [id number] Carlota Jin MD 1 [facility], [facility] 2 [place] [phone] 01/26/2025 6:45 EDT Treatment [facility] - [place] [address] [place], [place] [phone] Carlota Jin MD 1 [facility], [facility] 2 [place] [phone] 01/29/2025 6:45 EDT Treatment [facility] - [place] [address] [place] [address] Carlota Jin MD 1 [facility], [facility] 2 [place] [phone] 01/31/2025 6:45 EDT Treatment [facility] [place] [address] [place] [address] Carlota Jin MD 1 [facility], [facility] 2 [place] [phone] 02/02/2025 6:45 EDT Treatment [facility] [place] [address] [place] [address] Carlota Jin MD 1 [facility], [facility] 2 [place] [phone] 02/05/2025 6:45 EDT Treatment [facility] [place] [address] [place], [place] [id number] Carlota Jin MD 1 [facility], [facility] 2 [place] [phone] 02/07/2025 6:45 EDT Treatment [facility] [place] [address] [place], [place] [id number] Carlota Jin MD 1 [facility], [facility] 2 [place] [phone] 02/09/2025 6:45 EDT Treatment [facility] [place] [address] [place], [place] [id number] Carlota Jin MD 1 [facility], [facility] 2 [place] [phone] 02/12/2025 6:45 EDT Treatment [facility] [place] [address] [place] [address] Carlota Jin MD 1 [facility], [address] [phone] 02/14/2025 6:45 EDT Treatment [facility] [place] [address] [place], [place] [address] Carlota Jin MD 1 [facility], [facility] 2 [place] [phone] 02/16/2025 6:45 EDT Treatment [facility] [place] [address] [place], [place] [id number] Carlota Jin MD 1 [facility], [facility] [address] [place] [phone] 02/19/2025 6:45 EDT Treatment [facility] - [place] [address] [place], [place] [phone] Carlota Jin MD 1 [facility], Level [address] [place] [phone] 02/21/2025 6:45 EDT Treatment [facility] - [place] [address] [place], [place] [phone] Carlota Jin MD 1 [facility], [address] [place] [phone] documented as of this encounter Procedures Procedure Name Priority Date/Time Associated Diagnosis Comments COMPLETE BLOOD COUNT Routine 07/21/2023 6:30 EDT ESRD (end stage renal disease) ([facility]) HEMODIALYSIS Routine 07/21/2023 6:26 EDT ESRD (end stage renal disease) ([facility]) documented in this encounter Results * (ABNORMAL) COMPLETE BLOOD COUNT (07/21/2023 6:30 EDT) WBC 7.38 4.00 - 10.40 K/cmm 07/21/2023 22:14 [facility] RBC 3.07(L) 4.36 - 5.78 M/cmm 07/21/2023 22:14 [facility] Hemoglobin 9.8(L) 13.8 - 17.3 g/dL 07/21/2023 22:14 [facility] HCT 29.2(L) 39.5 - 50.2 % 07/21/2023 22:14 [facility] MCV 95 81 - 95 fL 07/21/2023 22:14 [facility] MCH 31.9 27.6 - 33.0 pg 07/21/2023 22:14 [facility] MCHC 33.6 32.8 - 36.4 g/dL 07/21/2023 22:14 [facility] RDW-CV 12.4 <14.2 % 07/21/2023 22:14 EDT [facility] RDW-SD 42.7 <46.0 fl 07/21/2023 22:14 EDT [facility] PLT 292 141 - 377 K/cmm 07/21/2023 22:14 EDT [facility] MPV 11.4 9.5 - 12.7 fL 07/21/2023 22:14 EDT [facility] Blood VENOUS BLOOD / Unknown Venipuncture / Unknown 07/21/2023 6:30 EDT 07/21/2023 6:30 EDT us Carlota Jin MD HEMATOLOGY & PF4 ORDERABL ES Final Result [facility] [address] [place] [address] documented in this encounter Visit Diagnoses Diagnosis ESRD (end stage renal disease) ([facility])- Primary End stage renal disease Anemia of chronic renal failure, unspecified CKD stage Hypoalbuminemia Other disorders of plasma protein metabolism Secondary hyperparathyroidism ([facility]) Secondary hyperparathyroidism (of renal origin) documented in this encounter Administered Medications Inactive Administered Medications - up to 3 most recent administrations Medication Order MAR Action Action Date Dose Rate Site calcium carbonate (TUMS) tablet 500 mg (200 mg elemental calcium) 2 Tablet 2 Tablet, oral, ONCE IN DIALYSIS, 1 dose, On Wed07/21/23 at 0645, Routine, DialysisIndications:ESRD (end stage renal disease) ([facility]),Secondary hyperparathyroidism ([facility]) Given 07/21/2023 7:13 EDT 2 Tablets epoetin ken (EPOGEN) 20,000 unit/2 mL injection 500 Units 500 Units, intravenous, ONCE IN DIALYSIS, 1 dose, On Wed07/21/23 at 0645, Routine, DialysisIndications:ESRD (end stage renal disease) ([facility]),Anemia of chronic renal failure, unspecified CKD stage Given 07/21/2023 7:12 EDT 500 Units heparin injection 9,000 Units 9,000 Units, intravenous, ONCE IN DIALYSIS, 1 dose, On Wed07/21/23 at 0645, Routine, Dialysis, Now x1 bolus 4500 units to be given at the beginning of dialysis 1500 units/hour to be given over the course of dialysis (9000 units total). Stop 1 hour prior to end of treatment. To be administered per Policy [id number].Indications:ESRD (end stage renal disease) ([facility]) Given 07/21/2023 6:45 EDT 9,000 Units LiquaCel liquid protein liquid 30 mL 30 mL, oral, ONCE IN DIALYSIS, 1 dose, On Wed07/21/23 at 0645, RoutineIndications:Hypoalbuminemi a,ESRD (end stage renal disease) ([facility]) Given 07/21/2023 7:13 EDT 30 mL documented in this encounter Orders Dialysis Count Last Ordered Date First Orde red Date HEMODIALYSIS 1 07/21/2023 documented in this encounter Care Teams Mechanical Maintenance Worker Relationship Specialty Start Date End Date Ken Greer MD [address] [place] [address] PCP - General 07/07/23 documented as of this encounter
--- OUTSIDE RECORDS SUMMARY | 2024-12-05 12:20 | XMS_ITS | Encounter Summary ---
Author Organization [facility] Address [address] [place] [address] Care Team Providers Care Nocturnist Physician Name Role Phone Ken Greer MD Primary Care Provider [phone] Encounter Details Date Type Department Care Team (Late st Contact Info) Description 07/27/2023 Documentation [facility] [place] [phone] Shelley Eden, RD [address] [place] [address] Social History Tobacco Use Types Packs/Day Years [...] Description 12/06/2024 6:45 EST Treatment [facility] [address] [place] [id number] Carlota Jin MD 1 [facility], Level [address] [place] [phone] 12/08/2024 6:45 EST Treatment [facility] D[facility] - [place] [address] [place], [place] [id number] Carlota Jin MD 1 [facility] 2 [place] [phone] 12/11/2024 6:45 EST Treatment [facility] - [place] [address] [place], [place] [id number] Carlota Jin MD 1 [facility], [facility] 2 [place] [phone] 12/13/2024 6:45 EST Treatment [facility] - [place] [address] [place], [place] [id number] Carlota Jin MD 1 [facility], [facility] [address] [place] [phone] 12/15/2024 6:45 EST Treatment [facility] - [place] [address] [place], [place] [id number] Carlota Jin MD 1 [facility], [address] [phone] 12/18/2024 6:45 EST Treatment [facility] [address] [place], [place] [id number] Carlota Jin MD 1 [facility], [facility] [address] [place] [phone] 12/20/2024 6:45 EST Treatment [facility] [address] [place], [place] [id number] Carlota Jin MD 1 [facility], [facility] [address] [place] [phone] 12/22/2024 6:45 EST Treatment [facility] - [place] [address] [place], [place] [id number] Carlota Jin MD 1 [facility], [facility] [address] [place] [phone] 12/25/2024 6:45 EST Treatment [facility] - [place] [address] [place], [place] [id number] Carlota Jin MD 1 [facility], [facility] 2 [place] [phone] 12/27/2024 6:45 EST Treatment [facility] D[facility] - [place] [address] [place], [place] [id number] Carlota Jin MD 1 [facility], [facility] [address] [place] [phone] 12/29/2024 6:45 EST Treatment [facility] [address] [place], [place] [id number] Carlota Jin MD 1 [facility], [facility] [address] [place] [phone] 01/01/2025 6:45 EDT Treatment [facility] [address] [place], [place] [id number] Carlota Jin MD 1 [facility], [facility] 2 [place] [phone] 01/03/2025 6:45 EDT Treatment [facility] - [place] [address] [place], [place] [address] Carlota Jin MD 1 [facility], [facility] 2 [place] [phone] 01/05/2025 6:45 EDT Treatment [facility] - [place] [address] [place], [place] [id number] Carlota Jni MD 1 [facility], [facility] [address] [place] [phone] 01/08/2025 6:45 EDT Treatment [facility] - [place] [address] [place], [place] [id number] Carlota Jin MD 1 [facility], [facility] [address] [place] [phone] 01/10/2025 6:45 EDT Treatment [facility] - [place] [address] [place], [place] [id number] Carlota Jin MD 1 [facility], [facility] [address] [place] [phone] 01/12/2025 6:45 EDT Treatment [facility] [place] [address] [place], [place] [id number] Carlota Jin MD 1 [facility], [facility] [address] [place] [phone] 01/15/2025 6:45 EDT Treatment [facility] - [place] [address] [place], [place] [id number] Calrota Jin MD 1 [facility], [facility] 2 [place] [phone] 01/17/2025 6:45 EDT Treatment [facility] - [place] [address] [place], [place] [id number] Carlota Jin MD 1 [facility], [facility] [address] [place] [phone] 01/19/2025 6:45 EDT Treatment [facility] - [place] [address] [place], [place] [id number] Carlota Jin MD 1 [facility], [facility] [address] [place] [phone] 01/22/2025 6:45 EDT Treatment [facility] [place] [address] [place], [place] [id number] Carlota Jin MD 1 [facility], [facility] [address] [place] [phone] 01/24/2025 6:45 EDT Treatment [facility] [place] [address] [place], [place] [id number] Carlota Jin MD 1 [facility], [facility] 2 [place] [phone] 01/26/2025 6:45 EDT Treatment [facility] [place] [address] [place], [place] [id number] Carlota Jin MD 1 [facility], [facility] [address] [place] [phone] 01/29/2025 6:45 EDT Treatment [facility] [place] [address] [place], [place] [id number] Carlota Jin MD 1 [facility], [facility] 2 [place] [phone] 01/31/2025 6:45 EDT Treatment [facility] [place] [address] [place], [place] [id number] Carlota Jin MD [address] [place] [address], [facility] 2 [place] [phone] 02/02/2025 6:45 EDT Treatment [facility] - [place] [address] [place], [place] [id number] Carlota Jin MD [address] [place] [address], [address] [phone] 02/05/2025 6:45 EDT Treatment [facility] [place] [address] [place], [place] [id number] Carlota Jin MD 1 [facility], [facility] 2 [place] [phone] 02/07/2025 6:45 EDT Treatment [facility] [place] [address] [place], [place] [id number] Carlota Jin MD 1 [facility], [facility] 2 [place] [phone] 02/09/2025 6:45 EDT Treatment [facility] - [place] [address] [place], [place] [id number] Carlota Jin MD 1 [facility], [facility] 2 [place] [phone] 02/12/2025 6:45 EDT Treatment [facility] - [place] [address] [place], [place] [id number] Carlota Jin MD 1 [facility], [facility] [address] [place] [phone] 02/14/2025 6:45 EDT Treatment [facility] - [place] [address] [place], [place] [id number] Carlota Jin MD 1 [facility], [facility] 2 [place] [phone] 02/16/2025 6:45 EDT Treatment [facility] [place] [address] [place] [address] Carlota Jin MD 1 [facility], [facility] [address] [place] [phone] 02/19/2025 6:45 EDT Treatment [facility] [place] [address] [place] [address] Carlota Jin MD 1 [facility], [facility] 2 [place] [phone] 02/21/2025 6:45 EDT Treatment [facility] - [place] [address] [place], [place] [id number] Carlota Jin MD 1 [facility], [facility] [address] [place] [phone] documented as of this encounter Visit Diagnoses Not on filedocumented in this encounter Care Teams Nocturnist Physician Relationship Specialty Start Date End Date Ken Greer MD [address] [place] [address] PCP - General 07/07/23 documented as of this encounter
--- OUTSIDE RECORDS SUMMARY | 2024-12-05 12:20 | XMS_ITS | Encounter Summary ---
Author Organization [facility] Address [address] [place] [address] Care Team Providers Care Procurement Consultant Name Role Phone Ken Greer MD Primary Care Provider [phone] Encounter Details Date Type Department Care Team (Latest Contact Info) Description 07/30/2023 6:45 EDT Treatment [facility] [address] [place], [place] [id number] Carlota Jin MD 1 [facility], Level 2 [place] [address] ESRD (end stage renal disease) ([facility]) (Primary Dx); Anemia of chronic renal failure, unspecified CKD stage; Hypoalbuminemia; Secondary hyperparathyroidism ([facility]); Encounter for immunization Social History Tobacco [...] - Temperature - - Respiratory Rate 16 07/30/2023 0628 EDT Oxygen Saturation - - Inhaled Oxygen Concentration - - Weight 89.3 kg (196 lb 13.9 oz) 07/30/2023 0628 EDT Height - - Body Mass Index 29.07 07/08/2023 0839 EDT documented in this encounter Miscellaneous Notes * Flowsheet Note - Marcela Cox RN - 07/30/2023 1240 EDT 07/30/23 1052 Post-Hemodialysis Assessment Total Blood Processed (L) 88.69 Liters On Line Clearance: spKt/V 1.47 spKt/V Dialyzer Clearance Lightly streaked Treatment UFR (ml:kg:hr) 7.48 ml:kg:hr Critline refill Not done Fluid Removed (L) 3 L Post-Dialysis Scale Weight 87.6 kg (193 lb 2 oz) Wheelchair Weight 0 kg (0 lb) Prosthesis Weight 1 kg (2 lb 3.3 oz) Post-Treatment Weight (kg) 86.6 Treatment Weight Change (kg) 2.7 kg Day Target Weight (kg) 86.8 Post Sitting/Lying BP 167/86 Post Sitting/Lying pulse 63 Post Standing BP 156/78 Post Standing Pulse 69 Temp 36.4 ??C [...] EST Treatment [facility] [place] [address] [place], [place] [id number] Carlota Jin MD [address] [place] [address], Level [address] [place] [address] 12/08/2024 6:45 EST Treatment [facility] [place] [address] [place], [place] [id number] Carlota Jin MD 1 [facility], [facility] 2 [place] [phone] 12/11/2024 6:45 EST Treatment [facility] [place] [address] [place], [place] [id number] Carlota Jin MD 1 [facility], [facility] 2 [place] [phone] 12/13/2024 6:45 EST Treatment [facility] [place] [address] [place], [place] [id number] Carlota Jin MD 1 [facility], [facility] 2 [place] [phone] 12/15/2024 6:45 EST Treatment [facility] [place] [address] [place], [place] [id number] Carlota Jin MD 1 [facility], [address] [phone] 12/18/2024 6:45 EST Treatment [facility] [place] [address] [place], [place] [id number] Carlota Jin MD 1 [facility], [facility] 2 [place] [phone] 12/20/2024 6:45 EST Treatment [facility] [place] [address] [place], [place] [id number] Carlota Jin MD 1 [facility], [facility] 2 [place] [phone] 12/22/2024 6:45 EST Treatment [facility] [place] [address] [place], [place] [id number] Carlota Jin MD 1 [facility], [facility] 2 [place] [phone] 12/25/2024 6:45 EST Treatment [facility] [place] [address] [place], [place] [id number] Carlota Jin MD 1 [facility], [facility] 2 [place] [phone] 12/27/2024 6:45 EST Treatment [facility] [address] [place], [place] [id number] Carlota Jin MD 1 [facility], [facility] 2 [place] [phone] 12/29/2024 6:45 EST Treatment [facility] [address] [place], [place] [id number] Carlota Jin MD 1 [facility], [facility] 2 [place] [phone] 01/01/2025 6:45 EDT Treatment [facility] [address] [place], [place] [id number] Carlota Jin MD 1 [facility], [facility] 2 [place] [phone] 01/03/2025 6:45 EDT Treatment [facility] [place] [address] [place], [place] [id number] Carlota Jin MD 1 [facility], [facility] 2 [place] [phone] 01/05/2025 6:45 EDT Treatment [facility] [place] [address] [place], [place] [id number] Carlota Jin MD 1 [facility], [address] [phone] 01/08/2025 6:45 EDT Treatment [facility] [place] [address] [place], [place] [id number] Carlota Jin MD 1 [facility], [address] [phone] 01/10/2025 6:45 EDT Treatment [facility] [place] [address] [place], [place] [id number] Carlota Jin MD 1 [facility], [address] [phone] 01/12/2025 6:45 EDT Treatment [facility] [place] [address] [place], [place] [id number] Carlota Jin MD 1 [facility], [facility] 2 [place] [phone] 01/15/2025 6:45 EDT Treatment [facility] [place] [address] [place], [place] [id number] Carlota Jin MD 1 [facility], [facility] 2 [place] [phone] 01/17/2025 6:45 EDT Treatment [facility] [place] [address] [place], [place] [id number] Carlota Jin MD 1 [facility], [facility] 2 [place] [phone] 01/19/2025 6:45 EDT Treatment [facility] [place] [address] [place], [place] [id number] Carlota Jin MD 1 [facility], [facility] 2 [place] [phone] 01/22/2025 6:45 EDT Treatment [facility] [place] [address] [place], [place] [id number] Carlota Jin MD 1 [facility], [facility] 2 [place] [phone] 01/24/2025 6:45 EDT Treatment [facility] [place] [address] [place] [address] Carlota Jin MD 1 [facility], [facility] 2 [place] [phone] 01/26/2025 6:45 EDT Treatment [facility] [place] [address] [place], [place] [id number] Carlota Jin MD 1 [facility], [facility] 2 [place] [phone] 01/29/2025 6:45 EDT Treatment [facility] [place] [address] [place], [place] [id number] Carlota Jin MD 1 [facility], [facility] 2 [place] [phone] 01/31/2025 6:45 EDT Treatment [facility] [place] [address] [place], [place] [id number] Carlota Jin MD 1 [facility], [address] [phone] 02/02/2025 6:45 EDT Treatment [facility] [place] [address] [place], [place] [id number] Carlota Jin MD [address] [place] [address], [address] [phone] 02/05/2025 6:45 EDT Treatment [facility] [place] [address] [place], [place] [id number] Carlota Jin MD [address] [place] [address], [facility] 2 [place] [phone] 02/07/2025 6:45 EDT Treatment [facility] [place] [address] [place], [place] [id number] Carlota Jin MD 1 [facility], [facility] 2 [place] [phone] 02/09/2025 6:45 EDT Treatment [facility] [place] [address] [place], [place] [id number] Carlota Jin MD 1 [facility], [facility] 2 [place] [phone] 02/12/2025 6:45 EDT Treatment [facility] [place] [address] [place], [place] [id number] Carlota Jin MD 1 [facility], [facility] 2 [place] [phone] 02/14/2025 6:45 EDT Treatment [facility] [place] [address] [place], [place] [id number] Carlota Jin MD 1 [facility], [facility] 2 [place] [phone] 02/16/2025 6:45 EDT Treatment [facility] [place] [address] [place], [place] [id number] Carlota Jin MD 1 [facility], [facility] 2 [place] [phone] 02/19/2025 6:45 EDT Treatment [facility] [address] [place], [place] [id number] Carlota Jin MD 1 [facility], [facility] 2 [place] [phone] 02/21/2025 6:45 EDT Treatment [facility] [place] [address] [place], [place] [id number] Carlota Jin MD 1 [facility], [facility] 2 [place] [phone] documented as of this encounter Procedures Procedure Name Priority Date/Time Associated Diagnosis Comments HEMODIALYSIS Routine 07/30/2023 6:28 EDT ESRD (end stage renal disease) ([facility]) documented in this encounter Visit Diagnoses Diagnosis ESRD (end stage renal disease) ([facility])- Primary End stage renal disease Anemia of chronic renal failure, unspecified CKD stage Hypoalbuminemia Other disorders of plasma protein metabolism Secondary hyperparathyroidism ([facility]) Secondary hyperparathyroidism (of renal origin) Encounter for [...] oral, ONCE IN DIALYSIS, 1 dose, On Wed07/30/23 at 0645, Routine, DialysisIndications:ESRD (end stage renal disease) ([facility]),Secondary hyperparathyroidism ([facility]) Given 07/30/2023 7:27 EDT 2 Tablets epoetin ken (EPOGEN) 20,000 unit/2 mL injection 1,000 Units 1,000 Units, intravenous, ONCE IN DIALYSIS, 1 dose, On Wed07/30/23 at 0645, Routine, DialysisIndications:ESRD (end stage renal disease) ([facility]),Anemia of chronic renal failure, unspecified CKD stage Given 07/30/2023 7:27 EDT 1,000 Units heparin injection 9,000 Units 9,000 Units, intravenous, ONCE IN DIALYSIS, 1 dose, On Wed07/30/23 at 0645, Routine, Dialysis, Now x1 bolus 4500 units to be given at the beginning of dialysis 1500 units/hour to be given over the course of dialysis (9000 units total). Stop 1 hour prior to end of treatment. To be administered per Policy [id number].Indications:ESRD (end stage renal disease) ([facility]) Given 07/30/2023 7:27 EDT 9,000 Units LiquaCel liquid protein liquid 30 mL 30 mL, oral, ONCE IN DIALYSIS, 1 dose, On Wed07/30/23 at 0645, RoutineIndications:Hypoalbuminemi a,ESRD (end stage renal disease) ([facility]) Given 07/30/2023 7:27 EDT 30 mL documented in this encounter Orders Dialysis Count Last Ordered Date First Orde red Date HEMODIALYSIS 1 07/30/2023 documented in this encounter Care Teams Procurement Consultant Relationship Specialty Start Date End Date Ken Greer MD [address] [place] [address] PCP - General 07/07/23 documented as of this encounter
--- OUTSIDE RECORDS SUMMARY | 2024-12-05 12:20 | XMS_ITS | Encounter Summary ---
Author Organization [facility] Address [address] [place] [address] Care Team Providers Care Environmental Educator Name Role Phone Ken Greer MD Primary Care Provider [phone] Encounter Details Date Type Department Care Team (Latest Contact Info) Description 07/16/2023 6:45 EDT Treatment [facility] [address] [place], [place] [phone] Carlota Jin MD 1 [facility], Level [address] [place] [address] ESRD (end stage renal disease) ([facility]) (Primary Dx); Anemia of chronic renal failure, unspecified CKD stage; Hypoalbuminemia; Secondary hyperparathyroidism ([facility]) Social History Tobacco Use Types [...] - Temperature - - Respiratory Rate 16 07/16/2023 0636 EDT Oxygen Saturation - - Inhaled Oxygen Concentration - - Weight 88.1 kg (194 lb 3.6 oz) 07/16/2023 0622 E DT Height - - Body Mass Index 28.68 07/08/2023 0839 EDT documented in this encounter Miscellaneous Notes * Flowsheet Note - Marcela Cox RN - 07/16/2023 1115 EDT 07/16/23 1055 Post-Hemodialysis Assessment Total Blood Processed (L) 91.54 Liters On Line Clearance: spKt/V 1.31 spKt/V Dialyzer Clearance Lightly streaked Treatment UFR (ml:kg:hr) 5.17 ml:kg:hr Critline refill Not done Fluid Removed (L) 2 L Post-Dialysis Scale Weight 87.3 kg (192 lb 7.4 oz) Wheelchair Weight 0 kg (0 lb) Prosthesis Weight 1 kg (2 lb 3.3 oz) (boots per notes) Post-Treatment Weight (kg) 86.3 Treatment Weight Change (kg) 1.8 kg Day Target Weight (kg) 86.6 Post Sitting/Lying BP 168/87 Post Sitting/Lying pulse 68 Post Standing BP 141/77 Post Standing Pulse 71 Temp 36.3 ??C (97.3 ??F) Temp src [...] [facility] [place] [address] [place], [place] [phone] Carlota Jin MD 1 [facility], Level [address] [place] [address] 12/08/2024 6:45 EST Treatment [facility] [place] [address] [place], [place] [id number] Carlota Jin MD 1 [facility], [facility] 2 [place] [phone] 12/11/2024 6:45 EST Treatment [facility] [place] [address] [place], [place] [id number] Carlota Jin MD 1 [facility], [facility] 2 [place] [phone] 12/13/2024 6:45 EST Treatment [facility] [place] [address] [place], [place] [id number] Carlota Jin MD 1 [facility], [facility] 2 [place] [phone] 12/15/2024 6:45 EST Treatment [facility] [place] [address] [place], [place] [id number] Carlota Jin MD 1 [facility], [address] [phone] 12/18/2024 6:45 EST Treatment [facility] [place] [address] [place], [place] [id number] Carlota Jin MD 1 [facility], [facility] 2 [place] [phone] 12/20/2024 6:45 EST Treatment [facility] [place] [address] [place], [place] [id number] Carlota Jin MD 1 [facility], [facility] 2 [place] [phone] 12/22/2024 6:45 EST Treatment [facility] [place] [address] [place], [place] [id number] Carlota Jin MD 1 [facility], [facility] 2 [place] [phone] 12/25/2024 6:45 EST Treatment [facility] [place] [address] [place], [place] [id number] Carlota Jin MD 1 [facility], [facility] 2 [place] [phone] 12/27/2024 6:45 EST Treatment [facility] [address] [place], [place] [id number] Carlota Jin MD 1 [facility], [facility] 2 [place] [phone] 12/29/2024 6:45 EST Treatment [facility] [address] [place], [place] [id number] Carlota Jin MD 1 [facility], [facility] 2 [place] [phone] 01/01/2025 6:45 EDT Treatment [facility] [address] [place], [place] [id number] Carlota Jin MD 1 [facility], [facility] 2 [place] [phone] 01/03/2025 6:45 EDT Treatment [facility] [place] [address] [place], [place] [id number] Carlota Jin MD 1 [facility], [facility] 2 [place] [phone] 01/05/2025 6:45 EDT Treatment [facility] [place] [address] [place], [place] [id number] Carlota Jin MD 1 [facility], [facility] 2 [place] [phone] 01/08/2025 6:45 EDT Treatment [facility] [place] [address] [place], [place] [id number] Carlota Jin MD 1 [facility], [address] [phone] 01/10/2025 6:45 EDT Treatment [facility] [place] [address] [place], [place] [id number] Carlota Jin MD 1 [facility], [address] [phone] 01/12/2025 6:45 EDT Treatment [facility] [place] [address] [place], [place] [id number] Carlota Jin MD 1 [facility], [facility] 2 [place] [phone] 01/15/2025 6:45 EDT Treatment [facility] [place] [address] [place], [place] [id number] Carlota Jin MD 1 [facility], Level [address] [place] [phone] 01/17/2025 6:45 EDT Treatment [facility] [place] [address] [place], [place] [address] Carlota Jin MD 1 [facility], [facility] 2 [place] [phone] 01/19/2025 6:45 EDT Treatment [facility] [place] [address] [place], [place] [id number] Carlota Jin MD 1 [facility], [facility] 2 [place] [phone] 01/22/2025 6:45 EDT Treatment [facility] [place] [address] [place], [place] [id number] Carlota Jin MD 1 [facility], [facility] 2 [place] [phone] 01/24/2025 6:45 EDT Treatment [facility] [place] [address] [place] [address] Carlota Jin MD 1 [facility], [facility] 2 [place] [phone] 01/26/2025 6:45 EDT Treatment [facility] [place] [address] [place], [place] [id number] Carlota Jin MD 1 [facility], [facility] 2 [place] [phone] 01/29/2025 6:45 EDT Treatment [facility] [place] [address] [place], [place] [id number] Carlota Jin MD 1 [facility], [facility] 2 [place] [phone] 01/31/2025 6:45 EDT Treatment [facility] [place] [address] [place], [place] [id number] Carlota Jin MD 1 [facility], [facility] 2 [place] [phone] 02/02/2025 6:45 EDT Treatment [facility] [place] [address] [place] [address] Carlota Jin MD [address] [place] [address], [facility] 2 [place] [phone] 02/05/2025 6:45 EDT Treatment [facility] [place] [address] [place], [place] [id number] Carlota Jin MD [address] [place] [address], [facility] 2 [place] [phone] 02/07/2025 6:45 EDT Treatment [facility] [place] [address] [place], [place] [id number] Carlota Jin MD 1 [facility], [facility] 2 [place] [phone] 02/09/2025 6:45 EDT Treatment [facility] [place] [address] [place], [place] [id number] Carlota Jin MD 1 [facility], [facility] 2 [place] [phone] 02/12/2025 6:45 EDT Treatment [facility] [place] [address] [place], [place] [id number] Carlota Jin MD 1 [facility], [facility] 2 [place] [phone] 02/14/2025 6:45 EDT Treatment [facility] [place] [address] [place], [place] [id number] Carlota Jin MD 1 [facility], [facility] 2 [place] [phone] 02/16/2025 6:45 EDT Treatment [facility] [place] [address] [place], [place] [id number] Carlota Jin MD 1 [facility], [facility] 2 [place] [phone] 02/19/2025 6:45 EDT Treatment [facility] [place] [address] [place], [place] [id number] Carlota Jin MD 1 [facility], [facility] 2 [place] [phone] 02/21/2025 6:45 EDT Treatment [facility] [place] [address] [place], [place] [id number] Carlota Jin MD 1 [facility], [facility] 2 [place] [phone] documented as of this encounter Procedures Procedure Name Priority Date/Time Associated Diagnosis Comments HEMODIALYSIS Routine 07/16/2023 6:36 EDT ESRD (end stage renal disease) ([facility]) documented in this encounter Visit Diagnoses Diagnosis ESRD (end stage renal disease) ([facility])- Primary End stage renal disease Anemia of chronic renal failure, unspecified CKD stage Hypoalbuminemia Other disorders of plasma protein metabolism Secondary hyperparathyroidism ([facility]) Secondary hyperparathyroidism (of renal origin) documented in this encounter Administered Medications Inactive Administered Medications - up to 3 most recent administrations Medication Order MAR Action Action Date Dose Rate Site calcium carbonate (TUMS) tablet 500 mg (200 mg elemental calcium) 2 Tablet 2 Tablet, oral, ONCE IN DIALYSIS, 1 dose, On Wed07/16/23 at 0700, Routine, DialysisIndications:ESRD (end stage renal disease) ([facility]),Secondary hyperparathyroidism ([facility]) Given 07/16/2023 7:10 EDT 2 Tablets epoetin ken (EPOGEN) 20,000 unit/2 mL injection 500 Units 500 Units, intravenous, ONCE IN DIALYSIS, 1 dose, On Wed07/16/23 at 0700, Routine, DialysisIndications:ESRD (end stage renal disease) ([facility]),Anemia of chronic renal failure, unspecified CKD stage Given 07/16/2023 7:10 EDT 500 Units heparin injection 9,000 Units 9,000 Units, intravenous, ONCE IN DIALYSIS, 1 dose, On Wed07/16/23 at 0700, Routine, Dialysis, Now x1 bolus 4500 units to be given at the beginning of dialysis 1500 units/hour to be given over the course of dialysis (9000 units total). Stop 1 hour prior to end of treatment. To be administered per Policy [id number].Indications:ESRD (end stage renal disease) ([facility]) Given 07/16/2023 6:45 EDT 9,000 Units LiquaCel liquid protein liquid 30 mL 30 mL, oral, ONCE IN DIALYSIS, 1 dose, On Wed07/16/23 at 0700, RoutineIndications:Hypoalbuminemi a,ESRD (end stage renal disease) ([facility]) Given 07/16/2023 7:10 EDT 30 mL documented in this encounter Orders Dialysis Count Last Ordered Date First Orde red Date HEMODIALYSIS 1 07/16/2023 documented in this encounter Care Teams Environmental Educator Relationship Specialty Start Date End Date Ken Greer MD [address] [place] [address] PCP - General 07/07/23 documented as of this encounter
--- OUTSIDE RECORDS SUMMARY | 2024-12-05 12:20 | XMS_ITS | Encounter Summary ---
Author Organization [facility] Address [address] [place] [address] Care Team Providers Care Dietitian Teaching Name Role Phone Ken Greer MD Primary Care Provider [phone] Encounter Details Date Type Department Care Team (Latest Contact Info) Description 07/28/2023 6:45 EDT Treatment [facility] [address] [place], [place] [id number] Carlota Jin MD 1 [facility], Level 2 [place] [address] ESRD (end stage renal disease) ([facility]) (Primary Dx); Anemia of chronic renal failure, unspecified CKD stage; Hypoalbuminemia; Secondary hyperparathyroidism ([facility]) Social History Tobacco Use Types Packs/Day Years [...] - Temperature - - Respiratory Rate 16 07/28/2023 0622 EDT Oxygen Saturation - - Inhaled Oxygen Concentration - - Weight 89.6 kg (197 lb 8.5 oz) 07/28/2023 0622 E DT Height - - Body Mass Index 29.17 07/08/2023 0839 EDT documented in this encounter Miscellaneous Notes * Flowsheet Note - Marcela Cox RN - 07/28/2023 1359 EDT 07/28/23 1039 Post-Hemodialysis Assessment Total Blood Processed (L) 90.05 Liters On Line Clearance: spKt/V 1.48 spKt/V Dialyzer Clearance Lightly streaked Treatment UFR (ml:kg:hr) 8 ml:kg:hr Critline refill Not done Fluid Removed (L) 3 L Post-Dialysis Scale Weight 87.8 kg (193 lb 9 oz) Wheelchair Weight 0 kg (0 lb) Prosthesis Weight 1 kg (2 lb 3.3 oz) Post-Treatment Weight (kg) 86.8 Treatment Weight Change (kg) 2.8 kg Day Target Weight (kg) 87.1 Post Sitting/Lying BP 161/85 Post Sitting/Lying pulse 62 Post Standing BP 151/78 Post Standing Pulse 67 Temp 36.5 ??C [...] Treatment [facility] [place] [address] [place], [place] [phone] Carlota Jin MD 1 [facility], Level [address] [place] [address] 12/08/2024 6:45 EST Treatment [facility] [place] [address] [place], [place] [address] Carlota Jin MD 1 [facility], [facility] [address] [place] [phone] 12/11/2024 6:45 EST Treatment [facility] [place] [address] [place], [place] [address] [phone] Carlota Jin MD 1 [facility], [address] [phone] 12/13/2024 6:45 EST Treatment [facility] [place] [address] [place], [place] [id number] Carlota Jin MD 1 [facility], [address] [phone] 12/15/2024 6:45 EST Treatment [facility] [address] [place] [address] Carlota Jin MD 1 [facility], [address] [phone] 12/18/2024 6:45 EST Treatment [facility] [address] [place], [place] [id number] Carlota Jin MD [address] [phone] 12/20/2024 6:45 EST Treatment [facility] [address] [place], [place] [id number] Carlota Jin MD 1 [facility], [facility] 2 [place] [phone] 12/22/2024 6:45 EST Treatment [facility] [place] [address] [place], [place] [id number] Carlota Jin MD 1 [facility], [facility] 2 [place] [phone] 12/25/2024 6:45 EST Treatment [facility] [place] [address] [place], [place] [id number] Carlota Jin MD 1 [facility], [facility] [address] [place] [phone] 12/27/2024 6:45 EST Treatment [facility] [address] [place] [address] Carlota Jin MD 1 [facility], [facility] [address] [place] [phone] 12/29/2024 6:45 EST Treatment [facility] [address] [place], [place] [id number] Carlota Jin MD 1 [facility], [facility] [address] [place] [phone] 01/01/2025 6:45 EDT Treatment [facility] [address] [place], [place] [id number] Carlota Jin MD 1 [facility], Level [address] [place] [phone] 01/03/2025 6:45 EDT Treatment [facility] [place] [address] [place], [place] [id number] Carlota Jin MD 1 [facility], [facility] 2 [place] [phone] 01/05/2025 6:45 EDT Treatment [facility] [place] [address] [place], [place] [id number] Carlota Jin MD 1 [facility], [facility] 2 [place] [phone] 01/08/2025 6:45 EDT Treatment [facility] [place] [address] [place], [place] [id number] Carlota Jin MD 1 [facility], [address] [phone] 01/10/2025 6:45 EDT Treatment [facility] [place] [address] [place], [place] [phone] Carlota Jin MD [address] [phone] 01/12/2025 6:45 EDT Treatment [facility] [place] [address] [place], [place] [id number] Carlota Jin MD [address] [phone] 01/15/2025 6:45 EDT Treatment [facility] [place] [address] [place], [place] [id number] Carlota Jin MD 1 [facility], [address] [place] [phone] 01/17/2025 6:45 EDT Treatment [facility] [place] [address] [place], [place] [id number] Carlota Jin MD 1 [facility], [facility] 2 [place] [phone] 01/19/2025 6:45 EDT Treatment [facility] [place] [address] [place], [place] [id number] Carlota Jin MD 1 [facility], [facility] 2 [place] [phone] 01/22/2025 6:45 EDT Treatment [facility] [place] [address] [place], [place] [id number] Carlota Jin MD 1 [facility], [facility] 2 [place] [phone] 01/24/2025 6:45 EDT Treatment [facility] [place] [address] [place] [address] Carlota Jin MD 1 [facility], [facility] 2 [place] [phone] 01/26/2025 6:45 EDT Treatment [facility] [address] [place], [place] [id number] Carlota Jin MD 1 [facility], [facility] 2 [place] [phone] 01/29/2025 6:45 EDT Treatment [facility] [place] [address] [place], [place] [id number] Carlota Jin MD 1 [facility], [facility] 2 [place] [phone] 01/31/2025 6:45 EDT Treatment [facility] [place] [address] [place], [place] [id number] Carlota Jin MD 1 [facility], [facility] 2 [place] [phone] 02/02/2025 6:45 EDT Treatment [facility] [place] [address] [place], [place] [id number] Carlota Jin MD 1 [facility], [address] [phone] 02/05/2025 6:45 EDT Treatment [facility] [place] [address] [place], [place] [phone] Carlota Jin MD 1 [facility], [facility] 2 [place] [phone] 02/07/2025 6:45 EDT Treatment [facility] [place] [address] [place], [place] [id number] Carlota Jin MD 1 [facility], [facility] 2 [place] [phone] 02/09/2025 6:45 EDT Treatment [facility] [place] [address] [place], [place] [id number] Carlota Jin MD 1 [facility], [facility] [address] [place] [phone] 02/12/2025 6:45 EDT Treatment [facility] [place] [address] [place], [place] [address] Carlota Jin MD 1 [facility], [facility] 2 [place] [phone] 02/14/2025 6:45 EDT Treatment [facility] [place] [address] [place], [place] [id number] Carlota Jin MD 1 [facility], [facility] 2 [place] [phone] 02/16/2025 6:45 EDT Treatment [facility] [place] [address] [place] [address] Carlota Jin MD 1 [facility], [facility] 2 [place] [phone] 02/19/2025 6:45 EDT Treatment [facility] [address] [place] [address] Carlota Jin MD 1 [facility], [facility] [address] [place] [phone] 02/21/2025 6:45 EDT Treatment [facility] [place] [address] [place], [place] [id number] Carlota Jin MD 1 [facility], [facility] [address] [place] [phone] documented as of this encounter Procedures Procedure Name Priority Date/Time Associated Diagnosis Comments COMPLETE BLOOD COUNT Routine 07/28/2023 6:29 EDT ESRD (end stage renal disease) ([facility]) HEMODIALYSIS Routine 07/28/2023 6:22 EDT ESRD (end stage renal disease) ([facility]) documented in this encounter Results * (ABNORMAL) COMPLETE BLOOD COUNT (07/28/2023 6:29 EDT) WBC 7.57 4.00 - 10.40 K/cmm 07/28/2023 22:14 [facility] RBC 2.99(L) 4.36 - 5.78 M/cmm 07/28/2023 22:14 [facility] Hemoglobin 9.3(L) 13.8 - 17.3 g/dL 07/28/2023 22:14 [facility] HCT 28.3(L) 39.5 - 50.2 % 07/28/2023 22:14 [facility] MCV 95 81 - 95 fL 07/28/2023 22:14 [facility] MCH 31.1 27.6 - 33.0 pg 07/28/2023 22:14 [facility] MCHC 32.9 32.8 - 36.4 g/dL 07/28/2023 22:14 [facility] RDW-CV 12.5 <14.2 % 07/28/2023 22:14 [facility] RDW-SD 43.3 <46.0 fl 07/28/2023 22:14 [facility] PLT 232 141 - 377 K/cmm 07/28/2023 22:14 [facility] MPV 11.7 9.5 - 12.7 fL 07/28/2023 22:14 [facility] Blood VENOUS BLOOD / Unknown Venipuncture / Unknown 07/28/2023 6:29 EDT 07/28/2023 6:29 EDT us Carlota Jin MD HEMATOLOGY & PF4 ORDERABL ES Final Result [facility] [address] [place] [address] documented in this encounter Visit Diagnoses Diagnosis ESRD (end stage renal disease) ([facility])- Primary End stage renal disease Anemia of chronic renal failure, unspecified CKD stage Hypoalbuminemia Other disorders of plasma protein metabolism Secondary hyperparathyroidism ([facility]) Secondary hyperparathyroidism (of renal origin) documented in this encounter Administered Medications Inactive Administered Medications - up to 3 most recent administrations Medication Order MAR Action Action Date Dose Rate Site acetaminophen (TYLENOL) tablet 650 mg 650 mg, oral, EVERY 4 HOURS PRN, Starting on Wed07/28/23 at 0622, Until Wed07/28/23 at 1559, Pain, Routine, DialysisIndications:ESRD (end stage renal disease) ([facility]) Given 07/28/2023 6:56 EDT 650 mg calcium carbonate (TUMS) tablet 500 mg (200 mg elemental calcium) 2 Tablet 2 Tablet, oral, ONCE IN DIALYSIS, 1 dose, On Wed07/28/23 at 0645, Routine, DialysisIndications:ESRD (end stage renal disease) ([facility]),Secondary hyperparathyroidism ([facility]) Given 07/28/2023 6:56 EDT 2 Tablets epoetin ken (EPOGEN) 20,000 unit/2 mL injection 1,000 Units 1,000 Units, intravenous, ONCE IN DIALYSIS, 1 dose, On Wed07/28/23 at 0645, Routine, DialysisIndications:ESRD (end stage renal disease) ([facility]),Anemia of chronic renal failure, unspecified CKD stage Given 07/28/2023 6:55 EDT 1,000 Units heparin injection 9,000 Units 9,000 Units, intravenous, ONCE IN DIALYSIS, 1 dose, On Wed07/28/23 at 0645, Routine, Dialysis, Now x1 bolus 4500 units to be given at the beginning of dialysis 1500 units/hour to be given over the course of dialysis (9000 units total). Stop 1 hour prior to end of treatment. To be administered per Policy [id number].Indications:ESRD (end stage renal disease) ([facility]) Given 07/28/2023 6:56 EDT 9,000 Units LiquaCel liquid protein liquid 30 mL 30 mL, oral, ONCE IN DIALYSIS, 1 dose, On 07/28/23 at 0645, RoutineIndications:Hypoalbuminemi a,ESRD (end stage renal disease) ([facility]) Given 07/28/2023 6:56 EDT 30 mL documented in this encounter Orders Dialysis Count Last Ordered Date First Orde red Date HEMODIALYSIS 1 07/28/2023 documented in this encounter Care Teams Dietitian Teaching Relationship Specialty Start Date End Date Ken Greer MD [facility] [place] [address] PCP - General 07/07/23 documented as of this encounter
--- OUTSIDE RECORDS SUMMARY | 2024-12-05 12:20 | XMS_ITS | Encounter Summary ---
Author Organization Health system Address [address] [place] [address] Care Team Providers Care Production Designer Name Role Phone Ken Greer MD Primary Care Provider [phone] Encounter Details Date Type Department Care Team (Late st Contact Info) Description 07/30/2023 Documentation Visit [facility] [address] [place], [place] [address] Melissa Crespo, RN Social History Tobacco Use [...] EST Treatment [facility] [place] [address] [place] [id number] Carlota Jin MD 1 [facility], Level [address] [place] [phone] 12/08/2024 6:45 EST Treatment [facility] [address] [place] [id number] Carlota Jin MD 1 [facility] [address] [place] [phone] 12/11/2024 6:45 EST Treatment [facility] [place] [address] [place], [place] [address] [phone] Carlota Jin MD 1 [facility], [facility] [address] [place] [phone] 12/13/2024 6:45 EST Treatment [facility] [place] [address] [place] [address] Carlota Jin MD 1 [facility], [facility] [address] [place] [phone] 12/15/2024 6:45 EST Treatment [facility] [place] [address] [place] [address] Carlota Jin MD 1 [facility], [facility] [address] [place] [phone] 12/18/2024 6:45 EST Treatment [facility] [place] [address] [place] [address] Carlota Jin MD 1 [facility], [facility] [address] [place] [phone] 12/20/2024 6:45 EST Treatment [facility] [place] [address] [place], [place] [id number] Carloat Jin MD 1 [facility], [facility] [address] [place] [phone] 12/22/2024 6:45 EST Treatment [facility] [place] [address] [place], [place] [id number] Carlota Jin MD 1 [facility], [facility] [address] [place] [phone] 12/25/2024 6:45 EST Treatment [facility] [place] [address] [place], [place] [id number] Carlota Jin MD 1 [facility], [facility] [address] [place] [phone] 12/27/2024 6:45 EST Treatment [facility] [place] [address] [place], [place] [id number] Carlota Jin MD 1 [facility], [facility] [address] [place] [phone] 12/29/2024 6:45 EST Treatment [facility] [place] [address] [place], [place] [address] Carlota Jin MD 1 [facility], [facility] [address] [place] [phone] 01/01/2025 6:45 EDT Treatment [facility] [place] [address] [place], [place] [id number] Carlota Jin MD 1 [facility], [facility] [address] [place] [phone] 01/03/2025 6:45 EDT Treatment [facility] [place] [address] [place], [place] [id number] Carlota Jin MD 1 [facility], [facility] [address] [place] [phone] 01/05/2025 6:45 EDT Treatment [facility] [place] [address] [place] [address] Carlota Jin MD 1 [facility], [facility] [address] [place] [phone] 01/08/2025 6:45 EDT Treatment [facility] [place] [address] [place], [place] [id number] Carlota Jin MD 1 [facility], [address] [phone] 01/10/2025 6:45 EDT Treatment [facility] [place] [address] [place], [place] [phone] Carlota Jin MD 1 [facility], [address] [phone] 01/12/2025 6:45 EDT Treatment [facility] [place] [address] [place], [place] [id number] Carlota Jin MD 1 [facility], [address] [phone] 01/15/2025 6:45 EDT Treatment [facility] [place] [address] [place], [place] [id number] Carlota Jin MD 1 [facility], [facility] [address] [place] [phone] 01/17/2025 6:45 EDT Treatment [facility] [place] [address] [place], [place] [id number] Carlota Jin MD 1 [facility], [facility] [address] [place] [phone] 01/19/2025 6:45 EDT Treatment [facility] [place] [address] [place], [place] [id number] Carlota Jin MD 1 [facility], [facility] [address] [place] [phone] 01/22/2025 6:45 EDT Treatment [facility] [place] [address] [place] [address] Carlota Jin MD 1 [facility], [facility] [address] [place] [phone] 01/24/2025 6:45 EDT Treatment [facility] [place] [address] [place], [place] [id number] Carlota Jin MD 1 [facility], [facility] [address] [place] [phone] 01/26/2025 6:45 EDT Treatment [facility] [place] [address] [place], [place] [id number] Carlota Jin MD 1 [facility], [facility] [address] [place] [phone] 01/29/2025 6:45 EDT Treatment [facility] [place] [address] [place], [place] [address] Carlota Jin MD 1 [facility], [facility] [address] [place] [phone] 01/31/2025 6:45 EDT Treatment [facility] [place] [address] [place], [place] [id number] Carlota Jin MD 1 [facility], [facility] [address] [place] [phone] 02/02/2025 6:45 EDT Treatment [facility] [place] [address] [place], [place] [id number] Carlota Jin MD 1 [facility], [facility] [address] [place] [phone] 02/05/2025 6:45 EDT Treatment [facility] [place] [address] [place], [place] [id number] Carlota Jin MD 1 [facility], [facility] [address] [place] [phone] 02/07/2025 6:45 EDT Treatment [facility] [place] [address] [place], [place] [id number] Carlota Jin MD 1 [facility], [facility] [address] [place] [phone] 02/09/2025 6:45 EDT Treatment [facility] [place] [address] [place], [place] [id number] Carlota Jin MD 1 [facility], [facility] [address] [place] [phone] 02/12/2025 6:45 EDT Treatment [facility] [place] [address] [place], [place] [id number] Carlota Jin MD 1 [facility], [facility] [address] [place] [phone] 02/14/2025 6:45 EDT Treatment [facility] [place] [address] [place], [place] [id number] Carlota Jin MD 1 [facility], [facility] [address] [place] [phone] 02/16/2025 6:45 EDT Treatment [facility] [place] [address] [place], [place] [id number] Carlota Jin MD 1 [facility], [facility] [address] [place] [phone] 02/19/2025 6:45 EDT Treatment [facility] [place] [address] [place] [address] Carlota Jin MD 1 [facility], [facility] [address] [place] [phone] 02/21/2025 6:45 EDT Treatment [facility] [place] [address] [place], [place] [phone] Carlota Jin MD 1 [facility], [facility] [address] [place] [phone] documented as of this encounter Visit Diagnoses Not on filedocumented in this encounter Care Teams Production Designer Relationship Specialty Start Date End Date Ken Gre[place] [address] PCP - General 07/07/23 documented as of this encounter
--- OUTSIDE RECORDS SUMMARY | 2024-12-05 12:20 | XMS_ITS | Encounter Summary ---
Author Organization [facility] Address [address] [place] [address] Care Team Providers Care Bakelite Molder Name Role Phone Ken Greer MD Primary Care Provider [phone] Encounter Details Date Type Department Care Team (Late st Contact Info) Description 07/19/2023 Documentation Visit [facility] [address] [place] [address] Shelley Eden, RD [address] [place] [address] Social History Tobacco Use Types Packs/Day Years [...] Progress Notes * Shelley Eden RD - 07/19/2023 1410 EDT Dialysis Dietitian's Monthly Assessment Met with patient on 07/12/23 Family/caregivers or others present: lives with his Information obtained from: patient Recent Hospitalizations: none Subjective: Xander was more alert during out visit this month. He continues to be busy working on building their house sometimes limited by lack of energy/ Also having issues with a swollen hand which has limited his ability to do his work. We discussed continued high phos level . Noted he often grabsfood out and about and has not been taking the renvela consistently. He also likes to snack on yogurt and uses milk in his coffee drinking 3-4 cups a day. We talked about increasing his dose of renvela at his next meal if he has missed a meal We also discussed high K level - noted to be eating moretomatoes Appetite: Good I can eat like a horse Appetite scale (0-10): 10 Gastrointestinal: No issues identified Skin integrity: Intact Diabetes: Yes does not check on bld sugars Diabetes Management: Self Monitoring of Blood Glucose on insulin but does not check Diet Recall: B 1/2 donut and coffee L wings and fries D skipped Fluid: Water, Coffee, Milk, Juice Alcohol: will need to f/u Prescribed Weight:87 Post-Dialytic Weight: 87.1 07/09/2023 10:58 07/12/2023 11:27 07/14/2023 11:09 07/16/2023 10:55 07/19/2023 11:03 - ( Kg ) 86.8 87.7 86.6 86.3 87.1 UFR: 07/09/2023 10:58 07/12/2023 11:27 07/14/2023 11:09 07/16/2023 10:55 07/19/2023 11:03 - mL/Kg/hr 1.89 ml:kg:hr 8.1 ml:kg:hr 7.95 ml:kg:hr 5.17 ml:kg:hr 8.58 ml:kg:hr URR: 69.492 (Calculated from:; BUN Pre-Dialysis: 59 mg/dL at 07/02/2023 10:48; BUN Post-Dialysis: 18 mg/dL at 07/02/2023 10:48) Kt/V: 1.38 (Calculated from:; BUN Pre-Dialysis: 59 mg/dL at 07/02/2023 10:48; BUN Post-Dialysis: 18 mg/dL at 07/02/2023 10:48; Pre-Treatment Weight (kg): 89 at 07/02/2023 6:29; Post-Treatment Weight (kg): 86.5 at 07/02/2023 10:42; Duration of Treatment (minutes): 243 minutes at 07/02/2023 10:42) PCR: 1.04 (Calculated from:; BUN Pre-Dialysis: 59 mg/dL at 07/02/2023 10:48; BUN Post-Dialysis: 18 mg/dL at 07/02/2023 10:48; Pre-Treatment Weight (kg): 89 at 07/02/2023 6:29; Post-Treatment Weight (kg): 86.5 at 07/02/2023 10:42; Duration of Treatment (minutes): 243 minutes at 07/02/2023 10:42; Age: 57 years) Pertinent Labs include: Lab Results Component Value Date LABALBU 3.5 06/28/2023 LABALBU 3.4 05/31/2023 Lab Results Component Value Date BUNPRE 59 (H) 07/02/2023 BUNPRE 59 (H) 07/02/2023 NA 131 (L) 06/28/2023 NA 138 05/31/2023 K 4.9 07/08/2023 K 6.8 (H) 06/28/2023 CL 93 (L) 06/28/2023 CL 103 05/31/2023 CO2 23 06/28/2023 CO2 22 05/31/2023 MG 2.4 06/28/2023 MG 2.5 05/31/2023 CALCIUM 8.7 06/28/2023 CALCIUM 8.7 05/31/2023 CALCCA 9.1 06/28/2023 CALCCA 9.2 05/31/2023 PHOS 7.2 (H) 06/28/2023 PHOS 8.2 (H) 05/31/2023 ALKPHOS 123 06/28/2023 ALKPHOS 83 05/31/2023 PTH 369 (H) 04/26/2023 PTH 239 (H) 01/25/2023 PLT 282 07/14/2023 PLT 275 07/07/2023 MCV 98 (H) 07/14/2023 MCV 95 07/07/2023 [id number] 11/16/2022 VITD 27 (L) 11/16/2022 FOLATE 17.3 11/16/2022 Protein/calorie supplements: liqaucel on HD days Using protein powder at home (orgain) Renal/other vitamins: cholecalciferol (Vitamin D3) - 2000 IU daily MULTIVITAMIN ORAL Herbal/OTC supplements: None reported CKD/MBD medications: sevelamer hydrochloride - 2 with meals - has not been consistent Recmd to add tums with snacks and larger meals Getting 2 tums at HD Other Medications Relevant to Nutrition: atorvastatin - 40 mg hydroCHLOROthiazide - 25 mg sevelamer hydrochloride - 800 mg Levemir FlexPen insulin pen - 100 unit/mL (3 mL) Assessment Nutrition status / Adequacy of intake: Xander seems to be eating well at least 2 protein servings daily but albumin remains low - will cont liquacel -have encouraged use of protein powder at home. His wt has ranged from 86-88 kg since starting HD and his current BMI is at 28. He is well nourished in appearance and fairly highly functioning Weight/Volume status: fluid gains 1.1-3.9 UFR 1-8 Electrolytes: Low Na indicating fluid on K high - revd diet education Mg WNL Mineral Bone Disease: Ca WNL [...] level low -on 2000 IU D3 - need f/u lab Diabetes management: on insulin but not checking regularly Education Materials provided: Nutrition Lab Report-given monthly Potassium education- given again on 03/10 Phosphorus education- given again on 03/10 Milk alternatives and low phos cheese list given 04/07 Fluid education - April 2023 Potassium Education -May 2023 Assessment of Understanding: needs reinforcement Medical Nutrition Therapy Plan and Recommendation 1. Revd high phos foods to limit - Encourage consistency with binders 2. Cont liquacel at HD 3. Will need to change to renal vitamin 4. Continue Vitamin D3 supplement -f/u level in July 5. Cont tums at HD 6. Revd high k foods to limit Shelley Eden RD, CD documented in this encounter Plan of Treatment Upcoming Encounters Date Type Department Care Team (Late st Contact Info) Description 12/06/2024 6:45 EST Treatment [facility] [place] [address] [place] [address] Carlota Jin MD 1 [facility], [facility] [address] [place] [phone] 12/08/2024 6:45 EST Treatment [facility] [place] [address] [place], [place] [id number] Carlota Jin MD 1 [facility], [facility] [address] [place] [phone] 12/11/2024 6:45 EST Treatment [facility] [place] [address] [place] [address] Carlota Jin MD 1 [facility], [address] [phone] 12/13/2024 6:45 EST Treatment [facility] [place] [address] [place], [place] [id number] Carlota Jin MD 1 [facility], [address] [phone] 12/15/2024 6:45 EST Treatment [facility] [place] [address] [place] [address] Carlota Jin MD 1 [facility], [facility] [address] [place] [phone] 12/18/2024 6:45 EST Treatment [facility] [place] [address] [place], [place] [id number] Carlota Jin MD 1 [facility], [facility] [address] [place] [phone] 12/20/2024 6:45 EST Treatment [facility] [place] [address] [place], [place] [id number] Carlota Jin MD 1 [facility], [facility] [address] [place] [phone] 12/22/2024 6:45 EST Treatment [facility] [place] [address] [place], [place] [id number] Carlota Jin MD 1 [facility], [facility] [address] [place] [phone] 12/25/2024 6:45 EST [facility] [address] [place], [place] [id number] Carlota Jin MD 1 [facility], [facility] [address] [place] [phone] 12/27/2024 6:45 EST Treatment [facility] [address] [place], [place] [id number] Carlota Jin MD 1 [facility], [facility] [address] [place] [phone] 12/29/2024 6:45 EST Treatment [facility] [address] [place], [place] [id number] Carlota Jin MD 1 [facility], [facility] [address] [place] [phone] 01/01/2025 6:45 EDT Treatment [facility] [address] [place], [place] [id number] Carlota Jin MD 1 [facility], [facility] [address] [place] [phone] 01/03/2025 6:45 EDT Treatment [facility] [place] [address] [place] [address] Carloat Jin MD 1 [facility], [facility] [address] [place] [phone] 01/05/2025 6:45 EDT Treatment [facility] [place] [address] [place] [id number] Carlota Jin MD 1 [facility], [facility] [address] [place] [phone] 01/08/2025 6:45 EDT Treatment [facility] [place] [address] [place], [place] [id number] Carlota Jin MD 1 [facility], [facility] [address] [place] [phone] 01/10/2025 6:45 EDT Treatment [facility] [place] [address] [place] [address] Carlota Jin MD 1 [facility], [facility] [address] [place] [phone] 01/12/2025 6:45 EDT Treatment [facility] [place] [address] [place], [place] [id number] Carlota Jin MD 1 [facility], [facility] [address] [place] [phone] 01/15/2025 6:45 EDT Treatment [facility] [place] [address] [place], [place] [id number] Carlota Jin MD 1 [facility], [facility] [address] [place] [phone] 01/17/2025 6:45 EDT Treatment [facility] [place] [address] [place], [place] [id number] Carlota Jin MD 1 [facility], [facility] [address] [place] [phone] 01/19/2025 6:45 EDT Treatment [facility] [address] [place], [place] [id number] Carlota Jin MD 1 [facility], [facility] [address] [place] [phone] 01/22/2025 6:45 EDT Treatment [facility] [address] [place], [place] [id number] Carlota Jin MD 1 [facility], [facility] [address] [place] [phone] 01/24/2025 6:45 EDT Treatment [facility] [address] [place], [place] [id number] Carlota Jin MD 1 [facility], [facility] [address] [place] [phone] 01/26/2025 6:45 EDT Treatment [facility] [place] [address] [place], [place] [id number] Carlota Jin MD 1 [facility], [facility] [address] [place] [phone] 01/29/2025 6:45 EDT Treatment [facility] [place] [address] [place], [place] [id number] Carlota Jin MD 1 [facility], [address] [phone] 01/31/2025 6:45 EDT Treatment [facility] [place] [address] [place], [place] [id number] Carlota Jin MD 1 [facility], [address] [phone] 02/02/2025 6:45 EDT Treatment [facility] [place] [address] [place], [place] [id number] Carlota Jin MD [address] [phone] 02/05/2025 6:45 EDT Treatment [facility] [place] [address] [place], [place] [id number] Carlota Jin MD [address] [phone] 02/07/2025 6:45 EDT Treatment [facility] [place] [address] [place], [place] [id number] Carlota Jin MD 1 [facility], [facility] [address] [place] [phone] 02/09/2025 6:45 EDT Treatment [facility] [place] [address] [place], [place] [id number] Carlota Jin MD 1 [facility], [facility] [address] [place] [phone] 02/12/2025 6:45 EDT Treatment [facility] [place] [address] [place], [place] [id number] Carlota Jin MD 1 [facility], [facility] [address] [place] [phone] 02/14/2025 6:45 EDT Treatment [facility] [place] [address] [place], [place] [id number] Carlota Jin MD 1 [facility], [facility] [address] [place] [phone] 02/16/2025 6:45 EDT Treatment [facility] [place] [address] [place] [address] [address] MD 1 [facility], [facility] [address] [place] [phone] 02/19/2025 6:45 EDT Treatment [facility] [place] [address] [place], [place] [id number] Carlota Jin MD 1 [facility], [facility] [address] [place] [phone] 02/21/2025 6:45 [facility] [place] [address] [place] [address] Carlota Jin MD 1 [facility], Level [address] [place] [phone] documented as of this encounter Visit Diagnoses Not on filedocumented in this encounter Care Teams Bakelite Molder Relationship Specialty Start Date End Date Ken Greer MD [address] [facility] [address] PCP - General 07/07/23 documented as of this encounter
--- OUTSIDE RECORDS SUMMARY | 2024-12-05 12:20 | XMS_ITS | Encounter Summary ---
Author Organization [facility] Address [address] [place] [address] Care Team Providers Care Core Analyst Name Role Phone Ken Greer MD Primary Care Provider [phone] Encounter Details Date Type Department Care Team (Latest Contact Info) Description 07/23/2023 6:45 EDT Treatment [facility] [address] [place], [place] [phone] Carlota Jin MD [facility], [address] [place] [address] ESRD (end stage renal disease) ([facility]) (Primary Dx); Anemia of chronic renal failure, unspecified CKD stage; Hypoalbuminemia; Secondary hyperparathyroidism ([facility]) Social History Tobacco Use Types Packs/Day [...] - Temperature - - Respiratory Rate 16 07/23/2023 0629 EDT Oxygen Saturation - - Inhaled Oxygen Concentration - - Weight 88.5 kg (195 lb 1.7 oz) 07/23/2023 0629 E DT Height - - Body Mass Index 28.81 07/08/2023 0839 EDT documented in this encounter Miscellaneous Notes * Flowsheet Note - Marcela Cox RN - 07/23/2023 1340 EDT 07/23/23 1227 Post-Hemodialysis Assessment Total Blood Processed (L) 89.21 Liters On Line Clearance: spKt/V 1.41 spKt/V Dialyzer Clearance Lightly streaked Treatment UFR (ml:kg:hr) 5.64 ml:kg:hr Final Critline Profile (%/hr) -2.32 Final Profile Profile A Critline refill Negative (31.1/30.9) Fluid Removed (L) 2.2 L Post-Dialysis Scale Weight 86.5 kg (190 lb 11.2 oz) Wheelchair Weight 0 kg (0 lb) Prosthesis Weight 0 kg (0 lb) Post-Treatment Weight (kg) 86.5 Treatment Weight Change (kg) 2 kg Day Target Weight (kg) 86.8 Post Sitting/Lying BP 148/76 Post Sitting/Lying pulse 68 Post Standing BP 150/74 Post Standing Pulse 74 Temp 36.6 ??C (97.9 ??F) Temp src [...] Treatment [facility] [place] [address] [place] [address] Carlota Jin MD 1 [facility], [address] [place] [address] 12/08/2024 6:45 EST Treatment [facility] [place] [address] [place], [place] [phone] Carlota Jin MD 1 [facility], [facility] 2 [place] [phone] 12/11/2024 6:45 EST Treatment [facility] [place] [address] [place], [place] [phone] Carlota Jin MD 1 [facility], [facility] 2 [place] [phone] 12/13/2024 6:45 EST Treatment [facility] [place] [address] [place] [address] Carlota Jin MD [address] [place] [address], [facility] [address] [place] [phone] 12/15/2024 6:45 EST Treatment [facility] [place] [address] [place], [place] [phone] Carlota Jin MD [facility], [facility] 2 [place] [phone] 12/18/2024 6:45 EST Treatment [facility] [place] [address] [place], [place] [phone] Carlota Jin MD 1 [facility], [facility] 2 [place] [phone] 12/20/2024 6:45 EST Treatment [facility] [place] [address] [place], [place] [phone] Carlota Jin MD 1 [facility], [facility] 2 [place] [phone] 12/22/2024 6:45 EST Treatment [facility] [place] [address] [place], [place] [id number] Carlota Jin MD 1 [facility], [facility] 2 [place] [phone] 12/25/2024 6:45 EST Treatment [facility] [place] [address] [place], [place] [phone] Carlota Jin MD 1 [facility], [facility] 2 [place] [phone] 12/27/2024 6:45 EST Treatment [facility] [place] [address] [place] [address] Carlota Jin MD 1 [facility], [facility] 2 [place] [phone] 12/29/2024 6:45 EST Treatment [facility] [place] [address] [place], [place] [id number] Carlota Jin MD 1 [facility], [facility] 2 [place] [phone] 01/01/2025 6:45 EDT Treatment [facility] [place] [address] [place], [place] [phone] Carlota Jin MD 1 [facility], [facility] 2 [place] [phone] 01/03/2025 6:45 EDT Treatment [facility] [place] [address] [place], [place] [phone] Carlota Jin MD 1 [facility], [facility] 2 [place] [phone] 01/05/2025 6:45 EDT Treatment [facility] [place] [address] [place], [place] [phone] Carlota Jin MD 1 [facility], [facility] 2 [place] [phone] 01/08/2025 6:45 EDT Treatment [facility] [place] [address] [place] [address] Carlota Jin MD [address] [place] [address], [address] [phone] 01/10/2025 6:45 EDT Treatment [facility] [place] [address] [place], [place] [phone] Carlota Jin MD 1 [facility], [facility] 2 [place] [phone] 01/12/2025 6:45 EDT Treatment [facility] [place] [address] [place], [place] [phone] Carlota Jin MD 1 [facility], [facility] 2 [place] [phone] 01/15/2025 6:45 EDT Treatment [facility] [place] [address] [place] [address] Carlota Jin MD 1 [facility], [facility] 2 [place] [phone] 01/17/2025 6:45 EDT Treatment [facility] [place] [address] [place] [address] Carlota Jin MD 1 [facility], [facility] 2 [place] [phone] 01/19/2025 6:45 EDT Treatment [facility] [place] [address] [place] [address] Carlota Jin MD [facility], [address] [phone] 01/22/2025 6:45 EDT Treatment [facility] [place] [address] [place] [address] Carlota Jin MD 1 [facility], [facility] 2 [place] [phone] 01/24/2025 6:45 EDT Treatment [facility] [place] [address] [place] [address] Carlota Jin MD 1 [facility], [facility] 2 [place] [phone] 01/26/2025 6:45 EDT Treatment [facility] [place] [address] [place], [place] [phone] Carlota Jin MD 1 [facility], [facility] 2 [place] [phone] 01/29/2025 6:45 EDT Treatment [facility] [place] [address] [place], [place] [address] Carlota Jin MD 1 [facility], [facility] 2 [place] [phone] 01/31/2025 6:45 EDT Treatment [facility] [place] [address] [place], [place] [phone] Carlota Jin MD [address] [place] [address], [facility] 2 [place] [phone] 02/02/2025 6:45 EDT Treatment [facility] [place] [address] [place], [place] [id number] Carlota Jin MD 1 [facility], [facility] 2 [place] [phone] 02/05/2025 6:45 EDT Treatment [facility] [place] [address] [place] [address] Carlota Jin MD [address] [place] [address], [facility] [address] [place] [phone] 02/07/2025 6:45 EDT Treatment [facility] [place] [address] [place], [place] [phone] Carlota Jin MD 1 [facility], [facility] 2 [place] [phone] 02/09/2025 6:45 EDT Treatment [facility] [place] [address] [place], [place] [id number] Carlota Jin MD [facility], [address] [phone] 02/12/2025 6:45 EDT Treatment [facility] [place] [address] [place], [place] [phone] Carlota Jin MD [facility], [address] [phone] 02/14/2025 6:45 EDT Treatment [facility] [place] [address] [place], [place] [phone] Carlota Jin MD [facility], [address] [phone] 02/16/2025 6:45 EDT Treatment [facility] [place] [address] [place], [place] [phone] Carlota Jin MD [address] [phone] 02/19/2025 6:45 EDT Treatment [facility] [place] [address] [place], [place] [phone] Carlota Jin MD [address] [phone] 02/21/2025 6:45 EDT Treatment [facility] [place] [address] [place], [place] [phone] Carlota Jin MD [facility], [address] [phone] documented as of this encounter Procedures Procedure Name Priority Date/Time Associated Diagnosis Comments HEMODIALYSIS Routine 07/23/2023 6:29 EDT ESRD (end stage renal disease) ([facility] [...] oral, ONCE IN DIALYSIS, 1 dose, On Wed07/23/23 at 0645, Routine, DialysisIndications:ESRD (end stage renal disease) ([facility]),Secondary hyperparathyroidism ([facility]) Given 07/23/2023 6:48 EDT 2 Tablets epoetin ken (EPOGEN) 20,000 unit/2 mL injection 500 Units 500 Units, intravenous, ONCE IN DIALYSIS, 1 dose, On Wed07/23/23 at 0645, Routine, DialysisIndications:ESRD (end stage renal disease) ([facility]),Anemia of chronic renal failure, unspecified CKD stage Given 07/23/2023 6:48 EDT 500 Units heparin injection 9,000 Units 9,000 Units, intravenous, ONCE IN DIALYSIS, 1 dose, On Wed07/23/23 at 0645, Routine, Dialysis, Now x1 bolus 4500 units to be given at the beginning of dialysis 1500 units/hour to be given over the course of dialysis (9000 units total). Stop 1 hour prior to end of treatment. To be administered per Policy [id number].Indications:ESRD (end stage renal disease) ([facility]) Given 07/23/2023 6:40 EDT 9,000 Units LiquaCel liquid protein liquid 30 mL 30 mL, oral, ONCE IN DIALYSIS, 1 dose, On Wed07/23/23 at 0645, RoutineIndications:Hypoalbuminemi a,ESRD (end stage renal disease) ([facility]) Given 07/23/2023 6:48 EDT 30 mL documented in this encounter Orders Dialysis Count Last Ordered Date First Orde red Date HEMODIALYSIS 1 07/23/2023 documented in this encounter Care Teams Core Analyst Relationship Specialty Start Date End Date Ken Greer MD [address] [place] [address] PCP - General 07/07/23 documented as of this encounter
--- OUTSIDE RECORDS SUMMARY | 2024-12-05 12:20 | XMS_ITS | Encounter Summary ---
Author Organization [facility] Address [address] [place] [address] Care Team Providers Care Exchange Underwriting Consultant Name Role Phone Ken Greer MD Primary Care Provider [phone] Encounter Details Date Type Department Care Team (Latest Contact Info) Description 07/26/2023 6:45 EDT Treatment [facility] [address] [place], [place] [id number] Carlota Jin MD 1 [facility], Level [address] [place] [address] ESRD (end stage renal disease) ([facility]) (Primary Dx); Secondary hyperparathyroidism ([facility]); Anemia of chronic renal failure, unspecified CKD [...] - Temperature - - Respiratory Rate 16 07/26/2023 0634 EDT Oxygen Saturation - - Inhaled Oxygen Concentration - - Weight 88.5 kg (195 lb 1.7 oz) 07/26/2023 0632 E DT Height - - Body Mass Index 28.81 07/08/2023 0839 EDT documented in this encounter Miscellaneous Notes * Flowsheet Note - Marcela Cox RN - 07/26/2023 1420 EDT 07/26/23 1047 Post-Hemodialysis Assessment Total Blood Processed (L) 90.19 Liters Dialyzer Clearance Lightly streaked Treatment UFR (ml:kg:hr) 4.86 ml:kg:hr Critline refill Not done Fluid Removed (L) 2 L Post-Dialysis Scale Weight 86.8 kg (191 lb 5.8 oz) Wheelchair Weight 0 kg (0 lb) Prosthesis Weight 0 kg (0 lb) Post-Treatment Weight (kg) 86.8 Treatment Weight Change (kg) 1.7 kg Day Target Weight (kg) 87 Post Sitting/Lying BP 181/81 Post Sitting/Lying pulse 67 Post Standing BP 160/85 Post Standing Pulse 71 Temp 36.5 ??C (97.7 ??F) Post access assessment AVF/AFG Hemostasis achieved [...] Dialysis Comprehensive - Carlota Jin MD - 07/26/2023 0645 EDT Images from the original note were not included. Dialysis Provider's Monthly Comprehensive Assessment Dialysis Unit: [facility] ESRD Etiology: Type 2 diabetes mellitus with diabetic chronic kidney disease ([facility]) Patient Active Problem List Diagnosis ??? 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 ESRD (end stage renal disease) ([facility]) ??? Essential (primary) hypertension ??? Hearing loss [...] Incenter Plan: Continue current modality. Current smoker; will need to quit before transplant referral. Transplantation: Patient Had Prior Transplant: No 12/16/2022 [...] with Nursing: Yes Average Interdialytic Fluid Gains: 07/21/2023 6:27 07/21/2023 10:43 07/23/2023 6:22 07/23/2023 6:29 07/23/2023 12:27 07/26/2023 6:32 07/26/2023 6:34 InterDialytic +/- Gain/Loss 2.3 1.9 1.9 2 2 Wt (pre) 89.4 88.5 88.5 88.5 88.5 Wt (post) 86.6 86.5 Treatment UFR (ml:kg:hr) 8.05 ml:kg:hr 5.64 ml:kg:hr BP (pre) 156/77 157/77 157/77 161/86 161/86 BP (post) 184/95 184/94 184/94 194/101 194/101 Pulse (pre) 75 76 76 75 75 Pulse(post) 73 73 73 73 73 Resp (/min) 16 16 Volume and blood pressure have been addressed with the following changes: None Consistently able to achieve estimated dry weight? Yes Blood pressure is in range for patient? Yes; occasionally elevated, especially at the beginnnig Any adverse intradialytic symptoms? Yes; occ cramping Plan: Managed per protocol Physical Exam Gen: NAD, awake, alert Resp: CTAB, unlabored breathing CV: RRR Abd: soft Ext: trace LE edema; LUE with mild edema of hand Neuro: AAOx3, moves all ext spont Skin: exposed skin is warm and dry with no obvious lesion or rash Hospitalization Hospitalization in Previous 3 Months: No Emergency Room Visit in Previous 3 Months: Yes: 07/05/23 - ED for arm pain and swelling r/t AVF Access Management Current LDAs: Hemodialysis Arteriovenous Access 02/13/19 (Active) AV Fistula Present 07/26/23 0645 Site Assessment Clean;Dry;Intact;Bruit heard;Thrill felt 07/26/23 0645 Current State Active 07/26/23 0645 Status Accessed 07/26/23 0645 Is Maturing N 07/26/23 0645 Local Anesthetic None 07/26/2345 Site Prep Alcohol 07/23/23 0641 Venous Needle Size 15 G 07/26/2345 Arterial/Generic Needle Size 15 G 07/26/23 0645 Accessed by: cory 07/26/2345 Access Attempts 2 07/26/23 0645 Dressing Status/Care Clean/Dry/Intact 07/21/23 0650 Patient has AVF/AVG as primary access: Yes Patient has Catheter as primary access >90 days: No Home Medication Review/Update Current Outpatient Medications: ??? albuterol (ACCUNEB) 0.63 mg/3 mL nebulizer solution, Take 3 mL by nebulization every 4 hours asneeded for Wheezing. (Patient not taking: Reported on 07/08/2023), Disp: , Rfl: ??? albuterol 90 mcg/actuation inhaler, , Disp: , Rfl: ??? amLODIPine (NORVASC) 10 mg tablet, Take 1 Tablet by mouth daily., Disp: , Rfl: ??? atorvastatin (LIPITOR) 40 mg tablet, Take 1 Tablet by mouth daily., Disp: , Rfl: ??? BABY ASPIRIN ORAL, Take 81 mg by mouth daily., Disp: , Rfl: ??? [...] 110 mcg/actuation inhaler, Inhale 1 Puff as directed. (Patient not taking: Reportedon 07/08/2023), Disp: , Rfl: ??? hydroCHLOROthiazide (HYDRODIURIL) 25 mg tablet, Stop per Dr. Jin. (Patient not taking: Reported on 07/08/2023), Disp: , Rfl: ??? hydrOXYzine (ATARAX) 25 mg tablet, Take 1 Tablet by mouth at bedtime., Disp: , Rfl: ??? LEVEMIR FLEXPEN 100 unit/mL (3 mL) injectable pen, , Disp: , Rfl: ??? magnesium oxide (MAG-OX) 400 mg (241.3 mg magnesium) tablet, Take 1 Tablet by mouth daily. (Patient not taking: Reported on 07/08/2023), Disp: , Rfl: ??? MULTIVITAMIN ORAL, Take by mouth., Disp: , Rfl: ??? nortriptyline (PAMELOR) 25 mg capsule, Take 1 Capsule by mouth at bedtime., Disp: , Rfl: ??? pregabalin (LYRICA) 100 mg capsule, Take 1 Capsule by mouth 2 times daily., Disp: , Rfl: ??? sevelamer hydrochloride (RENAGEL) 800 mg tablet, Take 2 Tablets by mouth 3 times daily. (Patient taking differently: Take 2 Tablets by mouth 3 times daily. Pt reports he is now taking this.), Disp: 540 Tablet, Rfl: 3 Adjustment made to home medication: No Dialysis Medication Review Dialysis Plan Order Summary All Current Orders Interval Duration Due Hemodialysis Therapy Plan Dialysis Treatment In-Center Hemodialysis 3 times a week Week of 07/25/2023 Routine, ONE TIME Starting when released Prescribed [...] - UF Profile: None Dialysis Last released: Wed07/26/2023 Oxygen Therapy (Age 3 yrs. to Adult) [...] released Until Discontinued, Pain, Dialysis Last released: Wed06/09/2023 diphenhydrAMINE (BENADRYL) capsule 25 mg PRN PRN [...] of treatment. To be administered per Policy [id number]. Last released: Wed07/26/2023 sodium chloride 0.9 % BOLUS 100 mL PRN PRN 100 mL, intravenous, PRN Starting when released Until Discontinued, Other, hypotension or cramping,Dialysis Last released: Never Dialysis Weekly Labs Complete Blood Count Weekly: Wed07/28/2023 Routine, ONE TIME Starting when released, Blood, Venous, Blood Results Release to Patient (Note: Choosing Manual Release will only block results from tests performed at [facility] and does not apply for Miscellaneous Test Order): Immediate via noodlst Portal Dialysis Last released: Wed07/21/2023 Dialysis Monthly Labs Dialysis Iron (Includes Iron, IBC, and Ferritin) - Nephrology Use Only On the Wed of every 1 month Wed08/30/2023 Routine, ONE TIME Starting when released, Blood, Venous, Blood Results Release to Patient (Note: Choosing Manual Release will only block results from tests performed at [facility] and does not apply for Miscellaneous Test Order): Immediate via [facility] Portal Dialysis Last released: Wed07/26/2023 Dialysis Routine- Dialysis Use Only On the Wed of every 1 month Wed08/30/2023 Routine, ONE TIME Starting when released, Blood, Blood, Venous Results Release to Patient (Note: Choosing Manual Release will only block results from tests performed at [facility] and does not apply for Miscellaneous Test Order): Immediate via [facility] Portal Dialysis Last released: Wed07/26/2023 Postdialysis BUN with URR Calculation On the Wed of every 1 month Wed08/30/2023 Routine, ONE TIME Starting when released, Blood, Blood, Venous Results Release to Patient (Note: Choosing Manual Release will only block results from tests performed at [facility] and does not apply for Miscellaneous Test Order): Immediate via [facility] Portal Dialysis Last released: Wed07/26/2023 Dialysis Quarterly Labs PTH Intact On the Wed of every 3 months Wed10/25/2023 Routine, ONE TIME Starting when released, Blood, Venous, Blood Results Release to Patient (Note: Choosing Manual Release will only block results from tests performed at [facility] and does not apply for Miscellaneous Test Order): Immediate via [facility] Portal Dialysis Last released: Wed07/26/2023 Dialysis Annual Labs - [facility] Hepatitis- Dialysis Use Only On the Wed of every 12 months Wed10/25/2023 Routine, ONE TIME Starting when released, Blood, Blood, Venous Results Release to Patient (Note: Choosing Manual Release will only block results from tests performed at [facility] and does not apply for Miscellaneous Test Order): Immediate via [facility] Portal Dialysis Last released: Never Folate On the 1st Mon of every 12 months [facility] 10/25/2023 Routine, ONE TIME Starting when released, Blood, Venous, Blood Results Release to Patient (Note: Choosing Manual Release will only block results from tests performed at [facility] and does not apply for Miscellaneous Test Order): Immediate via MyChart Portal Dialysis Last released: Never Vitamin B12 On the 1st Mon of every 12 months Wed10/25/2023 Routine, ONE TIME Starting when released, Blood, Venous, Blood Results Release to Patient (Note: Choosing Manual Release will only block results from tests performed at [facility] and does not apply for Miscellaneous Test Order): Immediate via MyChart Portal Dialysis Last released: Never Vitamin D (25,[place]) On the Mon of every 12 months Wed10/25/2023 Routine, ONE TIME Starting when released, Blood, Venous, Blood Results Release to Patient (Note: Choosing Manual Release will only block results from tests performed at [facility] and does not apply for Miscellaneous Test Order): Immediate via MyChart Portal Dialysis Last released: Never Dialysis Annual Labs - April Hepatitis C Ab w Reflex to HCV RNA by PCR On the Mon of every 12 months [facility] 04/24/2024 Routine, ONE TIME Starting when released, Blood, Venous, Blood Results Release to Patient (Note: Choosing Manual Release will only block results from tests performed at [facility] and does not apply for Miscellaneous Test Order): Immediate via MyChart Portal Dialysis Last released: Wed04/26/2023 HEMODIALYSIS ANEMIA MEDS Medications epoetin ken (EPOGEN) 20,000 unit/2 mL injection 1,000 Units 3 times a week Week of 07/25/2023 1,000 Units, intravenous, ONCE IN DIALYSIS Starting when released, Dialysis Last released: Wed07/26/2023 HEMODIALYSIS NUTRITIONAL SUPPLEMENTS Nutritional Supplements LiquaCel liquid protein liquid 30 mL Every visit Every visit 30 mL, oral, ONCE IN DIALYSIS Starting when released Last released: Wed07/26/2023 HEMODIALYSIS CKD MBD MEDS Medications calcium carbonate (TUMS) tablet 500 mg (200 mg elemental calcium) 2 Tablet Every visit Every visit 2 Tablet, oral, ONCE IN DIALYSIS Starting when released, Dialysis Last released: Wed07/26/2023 Adjustment made to dialysis medication: No Laboratory Results Dialysis Adequacy: spKt/V: 1.38 (Calculated from:; BUN Pre-Dialysis: 59 mg/dL at 07/02/2023 10:48; BUN Post-Dialysis: 18mg/dL at 07/02/2023 10:48; Pre-Treatment Weight (kg): 89 at 07/02/2023 6:29; Post-Treatment Weight (kg): 86.5 at 07/02/2023 10:42; Duration of Treatment (minutes): 243 minutes at 07/02/2023 10:42) Plan: Continue current dialysis prescription Anemia Management: Lab Results Component Value Date WBC 7.38 07/21/2023 HGB 9.8 (L) 07/21/2023 HGB 9.5 (L) 07/14/2023 HGB 10.4 (L) 07/07/2023 PLT 292 07/21/2023 FOLATE 17.3 11/16/2022 [id number] 11/16/2022 FERRITIN 774 (H) 06/28/2023 Current GEORGE/Dose: HEMODIALYSIS ANEMIA MEDS epoetin ken [...] Management: Lab Results Component Value Date LABALBU 3.5 06/28/2023 ALKPHOS 123 06/28/2023 PHOS 7.2 (H) 06/28/2023 CALCIUM 8.7 06/28/2023 CALCCA 9.1 06/28/2023 PTH 369 (H) 04/26/2023 Vitamin D: cholecalciferol (Vitamin D3) - 25 mcg (1,000 unit) sevelamer hydrochloride - 800 mg This patient does not have an active medication from one of the medication groupers. Plan: Managed per protocol Potassium Management: Lab Results Component Value Date K 4.9 07/08/2023 Prescribed Potassium Concentrate: HEMODIALYSIS Ordered at: 07/26/23 0635 Dialysate concentrate: Potassium 2 mEq/L Calcium 2.5 mEq/L 07/26/2023 6:34 Last Dialysis Prescription released on: Selected bath: Potassium 2 mEq/L Calcium 2.5 mEq/L sevelamer hydrochloride - 800 mg Plan: Managed per protocol Nutrition: Lab Results Component Value Date LABALBU 3.5 06/28/2023 NA 131 (L) 06/28/2023 Protein Supplements: This patient does not have an active medication from one of the medication groupers. Plan: Managed per protocol Comments: No acute issues. He has had a fistulogram and angioplasty; arm remains somewhat swollen but not painful. Carlota Jin MD documented in this encounter Plan of Treatment Upcoming Encounters Date Type Department Care Team (Late st Contact Info) Description 12/06/2024 6:45 EST Treatment [facility] [place] [address] [place], [place] [phone] Carlota Jin MD [address] [phone] 12/08/2024 6:45 EST Treatment [facility] [place] [address] [place], [place] [phone] Carlota Jin MD [address] [place] [phone] 12/11/2024 6:45 EST Treatment [facility] [place] [address] [place], [place] [phone] Carlota Jin MD [address] [place] [phone] 12/13/2024 6:45 EST Treatment [facility] [place] [address] [place], [place] [phone] Carlota Jin MD [address] [place] [phone] 12/15/2024 6:45 EST Treatment [facility] [place] [address] [place], [place] [phone] Carlota Jin MD 1 [facility], [facility] [address] [place] [phone] 12/18/2024 6:45 EST Treatment [facility] [place] [address] [place], [place] [phone] Carlota Jin MD 1 [facility], [facility] [address] [place] [phone] 12/20/2024 6:45 EST Treatment [facility] [address] [place], [place] [phone] Carlota Jin MD 1 [facility], [facility] [address] [place] [phone] 12/22/2024 6:45 EST Treatment [facility] [address] [place], [place] [phone] Carlota Jin MD 1 [facility], [facility] [address] [place] [phone] 12/25/2024 6:45 EST Treatment [facility] [place] [address] [place], [place] [phone] Carlota Jin MD 1 [facility], [facility] [address] [place] [phone] 12/27/2024 6:45 EST Treatment [facility] [address] [place], [place] [phone] Carlota Jin MD 1 [facility], [facility] [address] [place] [phone] 12/29/2024 6:45 EST Treatment [facility] [place] [address] [place] [address] Carlota Jin MD 1 [facility], [facility] [address] [place] [phone] 01/01/2025 6:45 EDT Treatment [facility] [place] [address] [place] [address] Carlota Jin MD 1 [facility], [facility] [address] [place] [phone] 01/03/2025 6:45 EDT Treatment [facility] [place] [address] [place], [place] [phone] Carlota Jin MD 1 [facility], [facility] [address] [place] [phone] 01/05/2025 6:45 EDT Treatment [facility] [place] [address] [place] [address] Carlota Jin MD 1 [facility], [facility] [address] [place] [phone] 01/08/2025 6:45 EDT Treatment [facility] [place] [address] [place], [place] [phone] Carlota Jin MD 1 [facility], [facility] [address] [place] [phone] 01/10/2025 6:45 EDT Treatment [facility] [place] [address] [place], [place] [phone] Carlota Jin MD 1 [facility], [facility] [address] [place] [phone] 01/12/2025 6:45 EDT Treatment [facility] [place] [address] [place], [place] [phone] Carlota Jin MD 1 [facility], [facility] [address] [place] [phone] 01/15/2025 6:45 EDT Treatment [facility] [address] [place], [place] [phone] Carlota Jin MD [address] [place] [address], [facility] [address] [place] [phone] 01/17/2025 6:45 EDT Treatment [facility] [address] [place], [place] [phone] Carlota Jin MD 1 [facility], [facility] [address] [place] [phone] 01/19/2025 6:45 EDT Treatment [facility] [address] [place], [place] [phone] Carlota Jin MD 1 [facility], [facility] [address] [place] [phone] 01/22/2025 6:45 EDT Treatment [facility] [place] [address] [place], [place] [phone] Carlota Jin MD 1 [facility], [facility] [address] [place] [phone] 01/24/2025 6:45 EDT Treatment [facility] [place] [address] [place], [place] [phone] Carlota Jin MD 1 [facility], [address] [phone] 01/26/2025 6:45 EDT Treatment [facility] [place] [address] [place], [place] [phone] Carlota Jin MD 1 [facility], [address] [phone] 01/29/2025 6:45 EDT Treatment [facility] [place] [address] [place], [place] [phone] Carlota Jin MD [address] [phone] 01/31/2025 6:45 EDT Treatment [facility] [place] [address] [place], [place] [phone] Carlota Jin MD [address] [phone] 02/02/2025 6:45 EDT Treatment [facility] [place] [address] [place], [place] [phone] Carlota Jin MD 1 [facility], [facility] 2 [place] [phone] 02/05/2025 6:45 EDT Treatment [facility] [place] [address] [place], [place] [phone] Carlota Jin MD 1 [facility], [facility] [address] [place] [phone] 02/07/2025 6:45 EDT Treatment [facility] [place] [address] [place], [place] [phone] Carlota Jin MD 1 [facility], [facility] [address] [place] [phone] 02/09/2025 6:45 EDT Treatment [facility] [place] [address] [place], [place] [phone] Carlota Jin MD 1 [facility], [facility] [address] [place] [phone] 02/12/2025 6:45 EDT Treatment [facility] [place] [address] [place] [address] Carlota Jin MD 1 [facility], [facility] [address] [place] [phone] 02/14/2025 6:45 EDT Treatment [facility] [place] [address] [place], [place] [phone] Carlota Jin MD 1 [facility], [facility] [address] [place] [phone] 02/16/2025 6:45 EDT Treatment [facility] [place] [address] [place], [place] [phone] Carlota Jin MD 1 [facility], [facility] [address] [place] [phone] 02/19/2025 6:45 EDT Treatment [facility] [place] [address] [place], [place] [phone] Carlota Jin MD 1 [facility], [facility] [address] [place] [phone] 02/21/2025 6:45 EDT Treatment [facility] [place] [address] [place], [place] [phone] Carlota Jin MD 1 [facility], [facility] [address] [place] [phone] documented as of this encounter Procedures Procedure Name Priority Date/Time Associated Diagnosis Comments POSTDIALYSIS BUN WITH URR CALCULATION Routine 07/26/2023 11:11 EDT ESRD (end stage renal disease) ([facility]) TRANSFERRIN SATURATION Routine 07/26/2023 6:40 EDT ESRD (end stage renal disease) ([facility]) DIALYSIS ROUTINE - DIALYSIS ONLY (BUN, K, NA, CL, CO2, SANJEEV, ALB, MG, PHOS, ALKP, AST) Routine 07/26/2023 6:40 EDT ESRD (end stage renal disease) ([facility]) PROFILE IRON STUDIES (INCLUDES IRON, IBC, AND FERRITIN) Routine 07/26/2023 6:40 EDT ESRD (end stage renal disease) ([facility]) PTH INTACT Routine 07/26/2023 6:40 EDT ESRD (end stage renal disease) ([facility]) Secondary hyperparathyroidism ([facility]) FERRITIN Routine 07/26/2023 6:40 EDT ESRD (end stage renal disease) ([facility]) HEMODIALYSIS Routine 07/26/2023 6:35 EDT ESRD (end stage renal disease) ([facility]) documented in this encounter Results * (ABNORMAL) POSTDIALYSIS BUN WITH URR CALCULATION (07/26/2023 11:11 EDT) BUN, Postdialysis 22 10 - 26 mg/dL 07/26/2023 21:38 EDT [facility] Urea Reduction Rate 69.4 Not Established % 07/26/2023 21:38 EDT [facility] Comment: NOTE: Reference range not established for Urea Reduction Rate. BUN 72(H) 10 - 26 mg/dL 07/26/2023 21:38 EDT [facility] Blood VENOUS BLOOD / Unknown Venipuncture / Unknown 07/26/2023 11:11 EDT 07/26/2023 11:11 EDT Carlota Jin MD CHEMISTRY & BLOOD GAS ORD ERABLES Final Result Performing Organization Address City/[facility]/ZIP Co de Phone Number [facility] [address] [place] [address] * (ABNORMAL) FERRITIN (07/26/2023 6:40 EDT) Ferritin 714(H) 22 - 322 ng/mL 07/27/2023 11:39 EDT [facility] Blood VENOUS BLOOD / Unknown Venipuncture / Unknown 07/26/2023 6:40 EDT 07/26/2023 6:40 EDT us Carlota Jin MD CHEMISTRY & BLOOD GAS ORD ERABLES Final Result Performing Organization Address City/[facility]/ZIP Co de Phone Number [facility] [address] [place] [address] * (ABNORMAL) TRANSFERRIN SATURATION (07/26/2023 6:40 EDT) Iron 67 49 - 181 ??g/dL 07/26/2023 21:51 EDT [facility] Iron Binding Capacity 239(L) 240 - 450 ??g/dL 07/26/2023 21:51 EDT [facility] Transferrin Saturation 28 15 - 45 % 07/26/2023 21:51 EDT [facility] Blood VENOUS BLOOD / Unknown Venipuncture / Unknown 07/26/2023 6:40 EDT 07/26/2023 6:40 EDT Carlota Jin MD CHEMISTRY & BLOOD GAS ORD ERABLES Final Result Performing Organization Address City/[facility]/ZIP Co de Phone Number [facility] [address] [place] [address] * (ABNORMAL) PTH INTACT (07/26/2023 6:40 EDT) Intact PTH 484(H) 19 - 88 pg/mL 07/27/2023 11:29 EDT [facility] Blood VENOUS BLOOD / Unknown Venipuncture / Unknown 07/26/2023 6:40 EDT 07/26/2023 6:40 EDT Carlota Jin MD CHEMISTRY & BLOOD GAS ORD ERABLES Final Result Performing Organization Address City/[facility]/ZIP Co de Phone Number [facility] [address] [place] [address] * (ABNORMAL) DIALYSIS ROUTINE - DIALYSIS ONLY (BUN, K, NA, CL, CO2, SANJEEV, ALB, MG, PHOS, ALKP, AST) (07/26/2023 6:40 EDT) Sodium 139 136 - 145 mmol/L 07/26/2023 21:37 EDT [facility] Potassium 5.4(H) 3.5 - 5.0 mmol/L 07/26/2023 21:37 EDT [facility] Chloride 102 96 - 110 mmol/L 07/26/2023 21:37 [facility] CO2 Total 22 22 - 32 mmol/L 07/26/2023 21:37 [facility] Calcium 8.7 8.5 - 10.5 mg/dL 07/26/2023 21:37 [facility] Albumin 3.2(L) 3.4 - 4.9 g/dL 07/26/2023 21:37 [facility] Phosphorus 8.3(H) 2.5 - 4.5 mg/dL 07/26/2023 21:37 [facility] Calcium Phos Product 72.2 See Note mg/dL 07/26/2023 21:37 [facility] Comment: NOTE: Reference range not established BUN, Predialysis 72(H) 10 - 26 mg/dL 07/26/2023 21:37 [facility] AST 23 15 - 46 U/L 07/26/2023 21:37 [facility] Alkaline Phosphatase 92 38 - 126 U/L 07/26/2023 21:37 [facility] Magnesium 2.2 1.7 - 2.8 mg/dL 07/26/2023 21:37 [facility] Anion Gap 15(H) 5 - 14 mmol/L 07/26/2023 21:37 [facility] Calculated Calcium 9.3 8.9 - 10.5 mg/dL 07/26/2023 21:37 [facility] Blood VENOUS BLOOD / Unknown Venipuncture / Unknown 07/26/2023 6:40 EDT 07/26/2023 6:40 EDT us Carlota Jin MD CHEMISTRY & BLOOD GAS ORD ERABLES Final Result [facility] [address] [place] [address] documented in this encounter Visit Diagnoses Diagnosis ESRD (end stage renal disease) ([facility])- Primary End stage renal disease Secondary hyperparathyroidism ([facility]) Secondary hyperparathyroidism (of renal origin) Anemia [...] oral, ONCE IN DIALYSIS, 1 dose, On Wed07/26/23 at 0700, Routine, DialysisIndications:ESRD (end stage renal disease) ([facility]),Secondary hyperparathyroidism ([facility]) Given 07/26/2023 6:54 EDT 2 Tablets epoetin ken (EPOGEN) 20,000 unit/2 mL injection 1,000 Units 1,000 Units, intravenous, ONCE IN DIALYSIS, 1 dose, On Wed07/26/23 at 0700, Routine, DialysisIndications:ESRD (end stage renal disease) ([facility]),Anemia of chronic renal failure, unspecified CKD stage Given 07/26/2023 6:54 EDT 1,000 Units heparin injection 9,000 Units 9,000 Units, intravenous, ONCE IN DIALYSIS, 1 dose, On Wed07/26/23 at 0700, Routine, Dialysis, Now x1 bolus 4500 units to be given at the beginning of dialysis 1500 units/hour to be given over the course of dialysis (9000 units total). Stop 1 hour prior to end of treatment. To be administered per Policy [id number].Indications:ESRD (end stage renal disease) ([facility]) Given 07/26/2023 6:45 EDT 9,000 Units LiquaCel liquid protein liquid 30 mL 30 mL, oral, ONCE IN DIALYSIS, 1 dose, On Wed07/26/23 at 0700, RoutineIndications:Hypoalbuminemi a,ESRD (end stage renal disease) ([facility]) Given 07/26/2023 6:54 EDT 30 mL documented in this encounter Orders Dialysis Count Last Ordered Date First Orde red Date HEMODIALYSIS 1 07/26/2023 documented in this encounter Care Teams Exchange Underwriting Consultant Relationship Specialty Start Date End Date Ken Greer MD [address] [place] [address] PCP - General 07/07/23 documented as of this encounter
--- OUTSIDE RECORDS SUMMARY | 2024-12-05 12:20 | XMS_ITS | Encounter Summary ---
Author Organization [facility] Address [address] [place] [address] Care Team Providers Care Health Insurance Sales Agent Name Role Phone Ken Greer MD Primary Care Provider [phone] Encounter Details Date Type Department Care Team (Late st Contact Info) Description 07/28/2023 Orders Only [facility] [address] [place], [place] [address] Yoanna Degroot, RN Social History Tobacco Use [...] EST Treatment [facility] [place] [address] [place] [id number] Carlota Jin MD 1 [facility], Level [address] [place] [phone] 12/08/2024 6:45 EST Treatment [facility] [address] [place] [id number] Carlota Jin MD 1 [facility], [facility] [address] [place] [phone] 12/11/2024 6:45 EST Treatment [facility] [place] [address] [place], [place] [address] [phone] Carlota Jin MD 1 [facility], [facility] [address] [place] [phone] 12/13/2024 6:45 EST Treatment [facility] [place] [address] [place] [address] Carlota Jin MD 1 [facility], [facility] [address] [place] [phone] 12/15/2024 6:45 EST Treatment [facility] [place] [address] [place] [address] Carlota Jin MD 1 [facility], [facility] [address] [place] [phone] 12/18/2024 6:45 EST Treatment [facility] [place] [address] [place] [address] Carlota Jin MD 1 [facility], [facility] [address] [place] [phone] 12/20/2024 6:45 EST Treatment [facility] - [place] [address] [place], [place] [id number] Carlota Jin MD 1 [facility], [facility] [address] [place] [phone] 12/22/2024 6:45 EST Treatment [facility] [place] [address] [place], [place] [id number] Carlota Jin MD 1 [facility], [facility] [address] [place] [phone] 12/25/2024 6:45 EST Treatment [facility] [place] [address] [place], [place] [id number] Carlota Jin MD 1 [facility], [facility] [address] [place] [phone] 12/27/2024 6:45 EST Treatment [facility] [place] [address] [place], [place] [id number] Carlota Jin MD 1 [facility], [facility] [address] [place] [phone] 12/29/2024 6:45 EST Treatment [facility] [place] [address] [place], [place] [address] Carlota Jin MD 1 [facility], [facility] [address] [place] [phone] 01/01/2025 6:45 EDT Treatment [facility] - [place] [address] [place], [place] [id number] Carlota Jin MD 1 [facility], [facility] [address] [place] [phone] 01/03/2025 6:45 EDT Treatment [facility] [place] [address] [place], [place] [phone] Carlota Jin MD 1 [facility], [facility] [address] [place] [phone] 01/05/2025 6:45 EDT Treatment [facility] - [place] [address] [place] [address] Carlota Jin MD 1 [facility], [facility] [address] [place] [phone] 01/08/2025 6:45 EDT Treatment [facility] [place] [address] [place], [place] [id number] Carlota Jin MD 1 [facility], [address] [phone] 01/10/2025 6:45 EDT Treatment [facility] - [place] [address] [place], [place] [phone] Carlota Jin MD 1 [facility], [address] [phone] 01/12/2025 6:45 EDT Treatment [facility] [place] [address] [place], [place] [phone] Carlota Jin MD 1 [facility], [address] [phone] 01/15/2025 6:45 EDT Treatment [facility] [place] [address] [place], [place] [phone] Carlota Jin MD 1 [facility], [facility] [address] [place] [phone] 01/17/2025 6:45 EDT Treatment [facility] [place] [address] [place], [place] [phone] Carlota Jin MD 1 [facility], [facility] [address] [place] [phone] 01/19/2025 6:45 EDT Treatment [facility] [place] [address] [place], [place] [id number] Carlota Jin MD 1 [facility], [facility] [address] [place] [phone] 01/22/2025 6:45 EDT Treatment [facility] [place] [address] [place] [address] Carlota Jin MD 1 [facility], [facility] [address] [place] [phone] 01/24/2025 6:45 EDT Treatment [facility] - [place] [address] [place], [place] [phone] Carlota Jin MD 1 [facility], [facility] [address] [place] [phone] 01/26/2025 6:45 EDT Treatment [facility] [place] [address] [place], [place] [id number] Carlota Jin MD 1 [facility], [facility] [address] [place] [phone] 01/29/2025 6:45 EDT Treatment [facility] - [place] [address] [place], [place] [address] Carlota Jin MD 1 [facility], [facility] [address] [place] [phone] 01/31/2025 6:45 EDT Treatment [facility] - [place] [address] [place], [place] [phone] Carlota Jin MD 1 [facility], [facility] [address] [place] [phone] 02/02/2025 6:45 EDT Treatment [facility] [place] [address] [place], [place] [phone] Carlota Jin MD 1 [facility], [facility] [address] [place] [phone] 02/05/2025 6:45 EDT Treatment [facility] - [place] [address] [place], [place] [phone] Carlota Jin MD 1 [facility], [facility] [address] [place] [phone] 02/07/2025 6:45 EDT Treatment [facility] - [place] [address] [place], [place] [phone] Carlota Jin MD 1 [facility], [facility] [address] [place] [phone] 02/09/2025 6:45 EDT Treatment [facility] - [place] [address] [place], [place] [phone] Carlota iJn MD 1 [facility], [facility] [address] [place] [phone] 02/12/2025 6:45 EDT Treatment [facility] [place] [address] [place], [place] [address] Carlota Jin MD 1 [facility], [facility] [address] [place] [phone] 02/14/2025 6:45 EDT Treatment [facility] [place] [address] [place], [place] [phone] Carlota Jin MD 1 [facility], [facility] [address] [place] [phone] 02/16/2025 6:45 EDT Treatment [facility] - [place] [address] [place], [place] [phone] Carlota Jin MD 1 [facility], [facility] [address] [place] [phone] 02/19/2025 6:45 EDT Treatment [facility] - [place] [address] [place] [address] Carlota Jin MD 1 [facility], [facility] [address] [place] [phone] 02/21/2025 6:45 EDT Treatment [facility] [place] [address] [place], [place] [phone] Carlota Jin MD 1 [facility], [facility] [address] [place] [phone] documented as of this encounter Visit Diagnoses Not on filedocumented in this encounter Care Teams Health Insurance Sales Agent Relationship Specialty Start Date End Date Ken Greer [place] [address] PCP - General 07/07/23 documented as of this encounter
--- OUTSIDE RECORDS SUMMARY | 2024-12-05 12:20 | XMS_ITS | Encounter Summary ---
Author Organization [facility] Address [address] [place] [address] Care Team Providers Care Band Log Mill And Carriage Operator Name Role Phone Ken Greer MD Primary Care Provider [phone] Encounter Details Date Type Department Care Team (Late st Contact Info) Description 07/28/2023 Documentation Visit [facility] [address] [place] [address] Alexa Estrada LICSW [address] [place] [address] Social History Tobacco Use Types Packs/Day Years [...] Progress Notes * Alexa Estrada LICSW - 07/28/2023 1521 EDT Parts Administrator's Monthly Assessment UPDATE: SW met with pt after dialysis and was able to get a copy of the pts updated insurance info for [employer] gas mileage reimbursement by walking out to the pts vehicle with him. Pt was somewhat unsteady on his feet and required a cane to ambulate to his car. SW will continue to follow. Current Living Situation: Lives with family and Lives with friends Lives with family Pt lives with his , Hoda, in their apartment in [place]. 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 Education: Highest level of education: high school [...] Info) Description 12/06/2024 6:45 EST Treatment [facility] [place] [address] [place], [place] [phone] Carlota Jin MD 1 [facility], [facility] 2 [place] [phone] 12/08/2024 6:45 EST Treatment [facility] - [place] [address] [place], [place] [phone] Carlota Jin MD 1 [facility], [address] [phone] 12/11/2024 6:45 EST Treatment [facility] [place] [address] [place], [place] [phone] Carlota Jin MD 1 [facility], [facility] 2 [place] [phone] 12/13/2024 6:45 EST Treatment [facility] [place] [address] [place], [place] [phone] Carlota Jin MD 1 [facility], [facility] [address] [place] [phone] 12/15/2024 6:45 EST Treatment [facility] - [place] [address] [place], [place] [id number] Carlota Jin MD 1 [facility], [facility] 2 [place] [phone] 12/18/2024 6:45 EST Treatment [facility] [place] [address] [place], [place] [address] Carlota Jin MD 1 [facility], [facility] 2 [place] [phone] 12/20/2024 6:45 EST Treatment [facility] [place] [address] [place], [place] [id number] Carlota Jin MD 1 [facility], [facility] 2 [place] [phone] 12/22/2024 6:45 EST Treatment [facility] [place] [address] [place], [place] [id number] Carlota Jin MD 1 [facility], [facility] 2 [place] [phone] 12/25/2024 6:45 EST Treatment [facility] [address] [place], [place] [id number] Carlota Jin MD 1 [facility], [address] [phone] 12/27/2024 6:45 EST Treatment [facility] [address] [place], [place] [id number] Carlota Jin MD 1 [facility], [facility] 2 [place] [phone] 12/29/2024 6:45 EST Treatment [facility] [address] [place], [place] [id number] Carlota Jin MD 1 [facility], [facility] 2 [place] [phone] 01/01/2025 6:45 EDT Treatment [facility] [place] [address] [place], [place] [id number] Carlota Jin MD 1 [facility], [facility] 2 [place] [phone] 01/03/2025 6:45 EDT Treatment [facility] [place] [address] [place], [place] [id number] Carlota Jin MD 1 [facility], [facility] 2 [place] [phone] 01/05/2025 6:45 EDT Treatment [facility] [place] [address] [place], [place] [id number] Carlota Jin MD 1 [facility], [address] [phone] 01/08/2025 6:45 EDT Treatment [facility] [place] [address] [place], [place] [id number] Carlota Jin MD 1 [facility], [facility] 2 [place] [phone] 01/10/2025 6:45 EDT Treatment [facility] [place] [address] [place], [place] [id number] Carlota Jin MD 1 [facility], [facility] 2 [place] [phone] 01/12/2025 6:45 EDT Treatment [facility] [place] [address] [place], [place] [id number] Carlota Jin MD 1 [facility], [facility] 2 [place] [phone] 01/15/2025 6:45 EDT Treatment [facility] [place] [address] [place], [place] [id number] Carlota Jin MD 1 [facility], [facility] 2 [place] [phone] 01/17/2025 6:45 EDT Treatment [facility] [place] [address] [place], [place] [id number] Carlota Jin MD 1 [facility], [address] [phone] 01/19/2025 6:45 EDT Treatment [facility] [place] [address] [place], [place] [id number] Carlota Jin MD 1 [facility], [address] [phone] 01/22/2025 6:45 EDT Treatment [facility] [place] [address] [place], [place] [id number] Carlota Jin MD 1 [facility], [facility] 2 [place] [phone] 01/24/2025 6:45 EDT Treatment [facility] [place] [address] [place], [place] [id number] Carlota Jin MD 1 [facility], Level [address] [place] [phone] 01/26/2025 6:45 EDT Treatment [facility] [place] [address] [place], [place] [address] Carlota Jin MD 1 [facility], [facility] 2 [place] [phone] 01/29/2025 6:45 EDT Treatment [facility] [place] [address] [place], [place] [id number] Carlota Jin MD 1 [facility], [facility] 2 [place] [phone] 01/31/2025 6:45 EDT Treatment [facility] [place] [address] [place], [place] [id number] Carlota Jin MD 1 [facility], [facility] 2 [place] [phone] 02/02/2025 6:45 EDT Treatment [facility] [place] [address] [place] [address] Carlota Jin MD 1 [facility], [facility] 2 [place] [phone] 02/05/2025 6:45 EDT Treatment [facility] [place] [address] [place], [place] [address] Carlota Jin MD 1 [facility], [facility] 2 [place] [phone] 02/07/2025 6:45 EDT Treatment [facility] [place] [address] [place], [place] [id number] Carlota Jin MD 1 [facility], [facility] 2 [place] [phone] 02/09/2025 6:45 EDT Treatment [facility] [place] [address] [place], [place] [address] Carlota Jin MD 1 [facility], [facility] 2 [place] [phone] 02/12/2025 6:45 EDT Treatment [facility] [place] [address] [place] [address] Carlota Jin MD [address] [place] [address], [facility] 2 [place] [phone] 02/14/2025 6:45 EDT Treatment [facility] [place] [address] [place], [place] [id number] Carlota Jin MD [address] [place] [address], [facility] 2 [place] [phone] 02/16/2025 6:45 EDT Treatment [facility] [place] [address] [place], [place] [id number] Carlota Jin MD 1 [facility], [facility] 2 [place] [phone] 02/19/2025 6:45 EDT Treatment [facility] [place] [address] [place], [place] [id number] Carlota Jin MD 1 [facility], Level [address] [place] [phone] 02/21/2025 6:45 EDT Treatment [facility] [address] [place], [place] [address] Carlota Jin MD 1 [facility], Level [address] [place] [phone] documented as of this encounter Visit Diagnoses Not on filedocumented in this encounter Care Teams Band Log Mill And Carriage Operator Relationship Specialty Start Date End Date Ken Greer MD [address] [place] [address] PCP - General 07/07/23 documented as of this encounter
--- OUTSIDE RECORDS SUMMARY | 2024-12-05 12:20 | XMS_ITS | Encounter Summary ---
Author Organization [facility] Address [address] [place] [address] Care Team Providers Care Sole Dyer Name Role Phone Ken Greer MD Primary Care Provider [phone] Encounter Details Date Type Department Care Team (Latest Contact Info) Description 08/04/2023 6:45 EDT Treatment [facility] [address] [place], [place] [id number] Carlota Jin MD 1 [facility], Level 2 [place] [address] ESRD (end stage renal disease) ([facility]) (Primary Dx); Anemia of chronic renal failure, unspecified CKD stage; Hypoalbuminemia; Secondary hyperparathyroidism ([facility]) Social History Tobacco Use Types Packs/Day Years [...] - Temperature - - Respiratory Rate 16 08/04/2023 0630 EDT Oxygen Saturation - - Inhaled Oxygen Concentration - - Weight 91.5 kg (201 lb 11.5 oz) 08/04/2023 0629 EDT Height - - Body Mass Index 29.79 07/08/2023 0839 EDT documented in this encounter Miscellaneous Notes * Flowsheet Note - Marcela Cox RN - 08/04/2023 1130 EDT 08/04/23 1112 Post-Hemodialysis Assessment Total Blood Processed (L) 89.82 Liters On Line Clearance: spKt/V 1.44 spKt/V Dialyzer Clearance Lightly streaked Treatment UFR (ml:kg:hr) 8.98 ml:kg:hr Critline refill Not done Fluid Removed (L) 3.5 L Post-Dialysis Scale Weight 88.3 kg (194 lb 10.7 oz) Wheelchair Weight 0 kg (0 lb) Prosthesis Weight 1 kg (2 lb 3.3 oz) (boots) Post-Treatment Weight (kg) 87.3 Treatment Weight Change (kg) 3.2 kg Day Target Weight (kg) 87.5 Post Sitting/Lying BP 150/81 Post Sitting/Lying pulse 68 Post Standing BP 142/72 Post Standing Pulse 70 Temp 36.6 ??C (97.9 ??F) Temp [...] Dialysis Rounding - Skye Gomez NP - 08/04/2023 0636 EDT Dialysis Provider's Routine Assessment Gerson Bruner was seen and examined as appropriate during Dialysis. Pertinent lab results were reviewed. Changes since last visit: None Changes to current prescriptions/orders: None Pt able to reach TW Medication compliance encouraged Skye Gomez NP documented in this encounter Plan of Treatment Upcoming Encounters Date Type Department Care Team (Late st Contact Info) Description 12/06/2024 6:45 EST Treatment [facility] [place] [address] [place], [place] [id number] Carlota Jin MD 1 [facility], [facility] 2 [place] [phone] 12/08/2024 6:45 EST Treatment [facility] [place] [address] [place], [place] [id number] Carlota Jin MD 1 [facility], [facility] 2 [place] [phone] 12/11/2024 6:45 EST Treatment [facility] [place] [address] [place], [place] [id number] Carlota Jin MD 1 [facility], [facility] 2 [place] [phone] 12/13/2024 6:45 EST Treatment [facility] [place] [address] [place], [place] [id number] Carlota Jin MD 1 [facility], [facility] 2 [place] [phone] 12/15/2024 6:45 EST Treatment [facility] [place] [address] [place], [place] [id number] Carlota Jin MD [address] [facility], [facility] 2 [place] [phone] 12/18/2024 6:45 EST Treatment [facility] [place] [address] [place] [address] Carlota Jin MD 1 [facility], [facility] 2 [place] [phone] 12/20/2024 6:45 EST Treatment [facility] [place] [address] [place], [place] [id number] Carlota Jin MD 1 [facility], [facility] 2 [place] [phone] 12/22/2024 6:45 EST Treatment [facility] [place] [address] [place], [place] [id number] Carlota Jin MD 1 [facility], [facility] 2 [place] [phone] 12/25/2024 6:45 EST Treatment [facility] [place] [address] [place], [place] [id number] Carlota Jin MD [address] [facility], [facility] 2 [place] [phone] 12/27/2024 6:45 EST Treatment [facility] [place] [address] [place] [address] Carlota Jin MD 1 [facility], [facility] 2 [place] [phone] 12/29/2024 6:45 EST Treatment [facility] [place] [address] [place], [place] [id number] Carlota Jin MD 1 [facility], [facility] 2 [place] [phone] 01/01/2025 6:45 EDT Treatment [facility] [place] [address] [place], [place] [address] Carlota Jin MD 1 [facility], [facility] 2 [place] [phone] 01/03/2025 6:45 EDT Treatment [facility] [place] [address] [place] [address] Carlota Jin MD 1 [facility], [facility] 2 [place] [phone] 01/05/2025 6:45 EDT Treatment [facility] - [place] [address] [place], [place] [id number] Carlota Jni MD [address] [facility], [facility] 2 [place] [phone] 01/08/2025 6:45 EDT Treatment [facility] [place] [address] [place], [place] [address] Carlota Jin MD [address] [facility], [facility] 2 [place] [phone] 01/10/2025 6:45 EDT Treatment [facility] [place] [address] [place], [place] [phone] Carlota Jin MD 1 [facility], [facility] 2 [place] [phone] 01/12/2025 6:45 EDT Treatment [facility] - [place] [address] [place], [place] [address] Carlota Jin MD 1 [facility], [facility] 2 [place] [phone] 01/15/2025 6:45 EDT Treatment [facility] [place] [address] [place], [place] [id number] Carlota Jin MD 1 [facility], [address] [phone] 01/17/2025 6:45 EDT Treatment [facility] [place] [address] [place], [place] [id number] Carlota iJn MD [address] [facility], [address] [phone] 01/19/2025 6:45 EDT Treatment [facility] [place] [address] [place], [place] [phone] Carlota Jin MD [address] [phone] 01/22/2025 6:45 EDT Treatment [facility] [place] [address] [place], [place] [id number] Carlota Jin MD [address] [phone] 01/24/2025 6:45 EDT Treatment [facility] [place] [address] [place], [place] [id number] Carlota Jin MD 1 [facility], [facility] 2 [place] [phone] 01/26/2025 6:45 EDT Treatment [facility] [place] [address] [place], [place] [id number] Carlota Jin MD 1 [facility], [facility] 2 [place] [phone] 01/29/2025 6:45 EDT Treatment [facility] [place] [address] [place], [place] [id number] Carlota Jin MD 1 [facility], [facility] 2 [place] [phone] 01/31/2025 6:45 EDT Treatment [facility] [place] [address] [place], [place] [phone] Carlota Jin MD 1 [facility], [facility] 2 [place] [phone] 02/02/2025 6:45 EDT Treatment [facility] [place] [address] [place] [address] Carlota Jin MD 1 [facility], [facility] 2 [place] [phone] 02/05/2025 6:45 EDT Treatment [facility] [place] [address] [place], [place] [phone] Carlota Jin MD 1 [facility], [facility] 2 [place] [phone] 02/07/2025 6:45 EDT Treatment [facility] [place] [address] [place], [place] [id number] Carlota Jin MD 1 [facility], [address] [phone] 02/09/2025 6:45 EDT Treatment [facility] [place] [address] [place], [place] [id number] Carlota Jin MD 1 [facility], [address] [phone] 02/12/2025 6:45 EDT Treatment [facility] [place] [address] [place], [place] [id number] Carlota Jin MD 1 [facility], [address] [phone] 02/14/2025 6:45 EDT Treatment [facility] [place] [address] [place], [place] [id number] Carlota Jin MD 1 [facility], [address] [phone] 02/16/2025 6:45 EDT Treatment [facility] [place] [address] [place], [place] [id number] Carlota Jin MD [address] [place] [address], [address] [phone] 02/19/2025 6:45 EDT Treatment [facility] [place] [address] [place], [place] [phone] Carlota Jin MD 1 [facility], Level [address] [place] [phone] 02/21/2025 6:45 EDT Treatment [facility] [place] [address] [place] [address] Carlota Jin MD 1 [facility], [address] [place] [phone] documented as of this encounter Procedures Procedure Name Priority Date/Time Associated Diagnosis Comments COMPLETE BLOOD COUNT Routine 08/04/2023 6:34 EDT ESRD (end stage renal disease) ([facility]) HEMODIALYSIS Routine 08/04/2023 6:30 EDT ESRD (end stage renal disease) ([facility]) documented in this encounter Results * (ABNORMAL) COMPLETE BLOOD COUNT (08/04/2023 6:34 EDT) WBC 8.57 4.00 - 10.40 K/cmm 08/04/2023 23:05 [facility] RBC 2.97(L) 4.36 - 5.78 M/cmm 08/04/2023 23:05 [facility] Hemoglobin 9.4(L) 13.8 - 17.3 g/dL 08/04/2023 23:05 [facility] HCT 28.3(L) 39.5 - 50.2 % 08/04/2023 23:05 [facility] MCV 95 81 - 95 fL 08/04/2023 23:05 [facility] MCH 31.6 27.6 - 33.0 pg 08/04/2023 23:05 [facility] MCHC 33.2 32.8 - 36.4 g/dL 08/04/2023 23:05 [facility] RDW-CV 12.3 <14.2 % 08/04/2023 23:05 [facility] RDW-SD 42.5 <46.0 fl 08/04/2023 23:05 EDT [facility] PLT 261 141 - 377 K/cmm 08/04/2023 23:05 EDT [facility] MPV 11.5 9.5 - 12.7 fL 08/04/2023 23:05 EDT [facility] Blood VENOUS BLOOD / Unknown Venipuncture / Unknown 08/04/2023 6:34 EDT 08/04/2023 6:34 EDT us Carlota Jin MD HEMATOLOGY & PF4 ORDERABL ES Final Result [facility] [address] [place] [address] documented in this encounter Visit Diagnoses Diagnosis ESRD (end stage renal disease) ([facility])- Primary End stage renal disease Anemia of chronic renal failure, unspecified CKD stage Hypoalbuminemia Other disorders of plasma protein metabolism Secondary hyperparathyroidism ([facility]) Secondary hyperparathyroidism (of renal origin) documented in this encounter Administered Medications Inactive Administered Medications - up to 3 most recent administrations Medication Order MAR Action Action Date Dose Rate Site calcium carbonate (TUMS) tablet 500 mg (200 mg elemental calcium) 2 Tablet 2 Tablet, oral, ONCE IN DIALYSIS, 1 dose, On Wed08/04/23 at 0700, Routine, DialysisIndications:ESRD (end stage renal disease) ([facility]),Secondary hyperparathyroidism (H[facility]-CMS) Given 08/04/2023 6:56 EDT 2 Tablets epoetin ken (EPOGEN) 20,000 unit/2 mL injection 1,000 Units 1,000 Units, intravenous, ONCE IN DIALYSIS, 1 dose, On Wed08/04/23 at 0700, Routine, DialysisIndications:ESRD (end stage renal disease) ([facility]),Anemia of chronic renal failure, unspecified CKD stage Given 08/04/2023 6:56 EDT 1,000 Units heparin injection 9,000 Units 9,000 Units, intravenous, ONCE IN DIALYSIS, 1 dose, On Wed08/04/23 at 0700, Routine, Dialysis, Now x1 bolus 4500 units to be given at the beginning of dialysis 1500 units/hour to be given over the course of dialysis (9000 units total). Stop 1 hour prior to end of treatment. To be administered per Policy [id number].Indications:ESRD (end stage renal disease) ([facility]) Given 08/04/2023 6:45 EDT 9,000 Units LiquaCel liquid protein liquid 30 mL 30 mL, oral, ONCE IN DIALYSIS, 1 dose, On Wed08/04/23 at 0700, RoutineIndications:Hypoalbuminemi a,ESRD (end stage renal disease) ([facility]) Given 08/04/2023 6:57 EDT 30 mL documented in this encounter Orders Dialysis Count Last Ordered Date First Orde red Date HEMODIALYSIS 1 08/04/2023 documented in this encounter Care Teams Sole Dyer Relationship Specialty Start Date End Date Ken Greer MD [address] [place] [address] PCP - General 07/07/23 documented as of this encounter
--- OUTSIDE RECORDS SUMMARY | 2024-12-05 12:20 | XMS_ITS | Encounter Summary ---
Author Organization [facility] Address [address] [place] [address] Care Team Providers Care Building Components Designer Name Role Phone Ken Greer MD Primary Care Provider [phone] Encounter Details Date Type Department Care Team (Latest Contact Info) Description 07/19/2023 6:45 EDT Treatment [facility] [address] [place], [place] [id number] Carlota Jin MD 1 [facility], Level 2 [place] [address] ESRD (end stage renal disease) ([facility]) (Primary Dx); Anemia of chronic renal failure, unspecified CKD stage; Hypoalbuminemia; Secondary hyperparathyroidism ([facility]) Social History Tobacco Use Types [...] - Temperature - - Respiratory Rate 16 07/19/2023 0642 EDT Oxygen Saturation - - Inhaled Oxygen Concentration - - Weight 90.2 kg (198 lb 13.7 oz) 07/19/2023 0642 EDT Height - - Body Mass Index 29.37 07/08/2023 0839 EDT documented in this encounter Miscellaneous Notes * Flowsheet Note - Marcela Cox RN - 07/19/2023 1134 EDT 07/19/23 1103 Post-Hemodialysis Assessment Total Blood Processed (L) 89.73 Liters On Line Clearance: spKt/V 1.5 spKt/V Dialyzer Clearance Lightly streaked Treatment UFR (ml:kg:hr) 8.58 ml:kg:hr Final Critline Profile (%/hr) -2.27 Final Profile Profile A Critline refill Negative (H1: 31.1 H2: 30.9) Fluid Removed (L) 3 L Post-Dialysis Scale Weight 88.1 kg (194 lb 3.6 oz) Wheelchair Weight 0 kg (0 lb) Prosthesis Weight 1 kg (2 lb 3.3 oz) Post-Treatment Weight (kg) 87.1 Treatment Weight Change (kg) 3.1 kg Day Target Weight (kg) 87.7 Post Sitting/Lying BP (!) 181/94 Post Sitting/Lying pulse 69 Post Standing BP 149/79 Post Standing Pulse 73 Temp 36.6 ??C (97.9 ??F) Temp src [...] Dialysis Rounding - Carlota Jin MD - 07/19/2023 0645 EDT TELEMEDICINE VIDEO VISIT Today's visit was provided through telemedicine video conferencing: I have reviewed the appropriateness of using video technology with the patient with regards to today's visit. The location of the patient : [facility] Patient location state: Visit Location State: [place] The location of the provider: Office Provider location state: Visit Location State: [place] The following people and their roles were present for today's visit: Appointment Provider: Carlota Jin MD RN Carlota Jin MD Dialysis Provider's Routine Assessment Gerson Bruner was seen and examined as appropriate during Dialysis. Pertinent lab results were reviewed. Changes since last visit: He had a fistulogram and balloon angioplasty; swelling in his hand is decreasing Changes to current prescriptions/orders: None No acute issues Carlota Jin MD The concept of ???Telemedicine?? [...] EST Treatment [facility] [address] [place], [place] [id number] Carlota Jin MD [address] [place] [address], [facility] 2 [place] [address] 12/08/2024 6:45 EST Treatment [facility] [address] [place], [place] [id number] Carlota Jin MD [address] [place] [address], [facility] 2 [place] [phone] 12/11/2024 6:45 EST [facility] [address] [place], [place] [address] Carlota Jin MD 1 [facility], [facility] 2 [place] [phone] 12/13/2024 6:45 EST Treatment [facility] [place] [address] [place], [place] [id number] Carlota Jin MD 1 [facility], [address] [phone] 12/15/2024 6:45 EST Treatment [facility] [place] [address] [place], [place] [id number] Carlota Jin MD 1 [facility], [address] [phone] 12/18/2024 6:45 EST Treatment [facility] [place] [address] [place], [place] [id number] Carlota Jin MD [address] [phone] 12/20/2024 6:45 EST Treatment [facility] [address] [place], [place] [id number] Carlota Jin MD [address] [phone] 12/22/2024 6:45 EST Treatment [facility] [place] [address] [place], [place] [id number] Carlota Jin MD 1 [facility], [facility] 2 [place] [phone] 12/25/2024 6:45 EST Treatment [facility] [place] [address] [place], [place] [id number] Carlota Jin MD 1 [facility], [facility] 2 [place] [phone] 12/27/2024 6:45 EST Treatment [facility] [place] [address] [place], [place] [id number] Carlota Jin MD 1 [facility], [address] [phone] 12/29/2024 6:45 EST Treatment [facility] [place] [address] [place] [address] Carlota Jin MD 1 [facility], [address] [phone] 01/01/2025 6:45 EDT Treatment [facility] [address] [place], [place] [id number] Carlota Jin MD 1 [facility], [facility] 2 [place] [phone] 01/03/2025 6:45 EDT Treatment [facility] [address] [place], [place] [id number] Carlota Jin MD 1 [facility], [facility] 2 [place] [phone] 01/05/2025 6:45 EDT Treatment [facility] [place] [address] [place], [place] [address] Carlota Jin MD 1 [facility], [facility] 2 [place] [phone] 01/08/2025 6:45 EDT Treatment [facility] [place] [address] [place], [place] [id number] Carlota Jin MD 1 [facility], [facility] 2 [place] [phone] 01/10/2025 6:45 EDT Treatment [facility] [place] [address] [place], [place] [id number] Carlota Jin MD 1 [facility], [facility] 2 [place] [phone] 01/12/2025 6:45 EDT Treatment [facility] [place] [address] [place], [place] [id number] Carlota Jin MD 1 [facility], [facility] 2 [place] [phone] 01/15/2025 6:45 EDT Treatment [facility] [place] [address] [place], [place] [id number] Carlota Jin MD 1 [facility], [facility] 2 [place] [phone] 01/17/2025 6:45 EDT Treatment [facility] [place] [address] [place], [place] [id number] Carlota Jin MD 1 [facility], [facility] 2 [place] [phone] 01/19/2025 6:45 EDT Treatment [facility] [place] [address] [place], [place] [id number] Carlota Jin MD 1 [facility], [facility] 2 [place] [phone] 01/22/2025 6:45 EDT Treatment [facility] [place] [address] [place], [place] [id number] Carlota Jin MD 1 [facility], [facility] 2 [place] [phone] 01/24/2025 6:45 EDT Treatment [facility] [place] [address] [place], [place] [id number] Carlota Jin MD 1 [facility], [facility] 2 [place] [phone] 01/26/2025 6:45 EDT Treatment [facility] [place] [address] [place], [place] [id number] Carlota Jin MD 1 [facility], [facility] 2 [place] [phone] 01/29/2025 6:45 EDT Treatment [facility] [place] [address] [place], [place] [id number] Carlota Jin MD 1 [facility], [facility] 2 [place] [phone] 01/31/2025 6:45 EDT Treatment [facility] [place] [address] [place], [place] [id number] Carlota Jin MD 1 [facility], [facility] 2 [place] [phone] 02/02/2025 6:45 EDT Treatment [facility] [place] [address] [place], [place] [id number] Carlota Jin MD [address] [place] [address], [facility] 2 [place] [phone] 02/05/2025 6:45 EDT Treatment [facility] [place] [address] [place], [place] [id number] Carlota Jin MD [address] [place] [address], [address] [phone] 02/07/2025 6:45 EDT Treatment [facility] [place] [address] [place], [place] [id number] Carlota Jin MD 1 [facility], [facility] 2 [place] [phone] 02/09/2025 6:45 EDT Treatment [facility] [place] [address] [place], [place] [id number] Carlota Jin MD 1 [facility], [facility] 2 [place] [phone] 02/12/2025 6:45 EDT Treatment [facility] [place] [address] [place], [place] [id number] Carlota Jin MD 1 [facility], [address] [phone] 02/14/2025 6:45 EDT Treatment [facility] [place] [address] [place], [place] [id number] Carlota Jin MD 1 [facility], [address] [phone] 02/16/2025 6:45 EDT Treatment [facility] [place] [address] [place], [place] [id number] Carlota Jin MD [address] [phone] 02/19/2025 6:45 EDT Treatment [facility] [place] [address] [place], [place] [id number] Carlota Jin MD [address] [phone] 02/21/2025 6:45 EDT Treatment [facility] [address] [place], [place] [id number] Carlota Jin MD [address] [phone] documented as of this encounter Procedures Procedure Name Priority Date/Time Associated Diagnosis Comments HEMODIALYSIS Routine 07/19/2023 6:42 EDT ESRD (end stage renal disease) ([facility]) documented in this encounter Visit Diagnoses Diagnosis ESRD (end stage renal disease) ([facility])- Primary End stage renal disease Anemia of chronic renal failure, unspecified CKD stage Hypoalbuminemia Other disorders of plasma protein metabolism Secondary hyperparathyroidism ([facility]) Secondary hyperparathyroidism (of renal origin) documented in this encounter Administered Medications Inactive Administered Medications - up to 3 most recent administrations Medication Order MAR Action Action Date Dose Rate Site calcium carbonate (TUMS) tablet 500 mg (200 mg elemental calcium) 2 Tablet 2 Tablet, oral, ONCE IN DIALYSIS, 1 dose, On Wed07/19/23 at 0700, Routine, DialysisIndications:ESRD (end stage renal disease) ([facility]),Secondary hyperparathyroidism ([facility]) Given 07/19/2023 7:06 EDT 2 Tablets epoetin ken (EPOGEN) 20,000 unit/2 mL injection 500 Units 500 Units, intravenous, ONCE IN DIALYSIS, 1 dose, On Wed07/19/23 at 0700, Routine, DialysisIndications:ESRD (end stage renal disease) ([facility]),Anemia of chronic renal failure, unspecified CKD stage Given 07/19/2023 7:06 EDT 500 Units heparin injection 9,000 Units 9,000 Units, intravenous, ONCE IN DIALYSIS, 1 dose, On Wed07/19/23 at 0700, Routine, Dialysis, Now x1 bolus 4500 units to be given at the beginning of dialysis 1500 units/hour to be given over the course of dialysis (9000 units total). Stop 1 hour prior to end of treatment. To be administered per Policy [id number].Indications:ESRD (end stage renal disease) ([facility]) Given 07/19/2023 6:55 EDT 9,000 Units LiquaCel liquid protein liquid 30 mL 30 mL, oral, ONCE IN DIALYSIS, 1 dose, On Wed07/19/23 at 0700, RoutineIndications:Hypoalbuminemi a,ESRD (end stage renal disease) ([facility]) Given 07/19/2023 7:06 EDT 30 mL documented in this encounter Orders Dialysis Count Last Ordered Date First Orde red Date HEMODIALYSIS 1 07/19/2023 documented in this encounter Care Teams Building Components Designer Relationship Specialty Start Date End Date Ken Greer MD [address] [place] [address] PCP - General 07/07/23 documented as of this encounter
--- OUTSIDE RECORDS SUMMARY | 2024-12-05 12:20 | XMS_ITS | Encounter Summary ---
Author Organization [facility] Address [address] [place] [address] Care Team Providers Care Associate Director Finance Name Role Phone Ken Greer MD Primary Care Provider [phone] Encounter Details Date Type Department Care Team (Late st Contact Info) Description 07/23/2023 Documentation Visit [facility] [address] [place], [place] [address] Melissa Crespo, RN Social History Tobacco Use [...] Center [facility] [place] [address] [place] [id number] Carlota Jin MD 1 [facility], Level [address] [place] [phone] 12/08/2024 6:45 EST Treatment [facility] [address] [place] [id number] Carlota Jin MD 1 [facility] [address] [place] [phone] 12/11/2024 6:45 EST Treatment [facility] [place] [address] [place], [place] [address] [phone] Carlota Jin MD 1 [facility] [address] [place] [phone] 12/13/2024 6:45 EST Treatment [facility] [place] [address] [place] [address] Carlota Jin MD 1 [facility], [facility] 2 [place] [phone] 12/15/2024 6:45 EST Treatment [facility] [place] [address] [place] [address] Carlota Jin MD 1 [facility], [facility] 2 [place] [phone] 12/18/2024 6:45 EST Treatment [facility] [place] [address] [place] [address] Carlota Jin MD 1 [facility], [facility] 2 [place] [phone] 12/20/2024 6:45 EST Treatment [facility] [place] [address] [place], [place] [id number] Carlota Jin MD 1 [facility] 2 [place] [phone] 12/22/2024 6:45 EST Treatment [facility] [place] [address] [place], [place] [id number] Carlota Jin MD 1 [facility], [facility] 2 [place] [phone] 12/25/2024 6:45 EST Treatment [facility] [place] [address] [place], [place] [id number] Carlota Jin MD 1 [facility], [facility] 2 [place] [phone] 12/27/2024 6:45 EST Treatment [facility] [place] [address] [place], [place] [id number] Carlota Jin MD 1 [facility], [facility] 2 [place] [phone] 12/29/2024 6:45 EST Treatment [facility] [place] [address] [place], [place] [address] Carlota Jin MD 1 [facility], [facility] [address] [place] [phone] 01/01/2025 6:45 EDT Treatment [facility] [place] [address] [place], [place] [id number] Carlota Jin MD 1 [facility], [facility] 2 [place] [phone] 01/03/2025 6:45 EDT Treatment [facility] [place] [address] [place], [place] [id number] Carlota Jin MD 1 [facility], [facility] [address] [place] [phone] 01/05/2025 6:45 EDT Treatment [facility] [place] [address] [place] [address] Carlota Jin MD 1 [facility], [facility] 2 [place] [phone] 01/08/2025 6:45 EDT Treatment [facility] [place] [address] [place], [place] [id number] Carlota Jin MD 1 [facility], [address] [phone] 01/10/2025 6:45 EDT Treatment [facility] [place] [address] [place], [place] [id number] Carlota Jin MD 1 [facility], [address] [phone] 01/12/2025 6:45 EDT Treatment [facility] [place] [address] [place], [place] [id number] Carlota Jin MD 1 [facility], [address] [phone] 01/15/2025 6:45 EDT Treatment [facility] [place] [address] [place], [place] [id number] Carlota Jin MD 1 [facility] 2 [place] [phone] 01/17/2025 6:45 EDT Treatment [facility] [place] [address] [place], [place] [id number] Carlota Jin MD 1 [facility], [facility] 2 [place] [phone] 01/19/2025 6:45 EDT Treatment [facility] [place] [address] [place], [place] [id number] Carlota Jin MD 1 [facility], [facility] [address] [place] [phone] 01/22/2025 6:45 EDT Treatment [facility] [place] [address] [place] [address] Carlota Jin MD 1 [facility], [facility] [address] [place] [phone] 01/24/2025 6:45 EDT Treatment [facility] [place] [address] [place], [place] [id number] Carlota Jin MD 1 [facility], [facility] [address] [place] [phone] 01/26/2025 6:45 EDT Treatment [facility] [place] [address] [place], [place] [id number] Carlota Jin MD 1 [facility], [facility] [address] [place] [phone] 01/29/2025 6:45 EDT Treatment [facility] [place] [address] [place], [place] [address] Carlota Jin MD 1 [facility], [facility] [address] [place] [phone] 01/31/2025 6:45 EDT Treatment [facility] [place] [address] [place], [place] [id number] Carlota Jin MD 1 [facility], [facility] [address] [place] [phone] 02/02/2025 6:45 EDT Treatment [facility] [place] [address] [place], [place] [id number] Carlota Jin MD 1 [facility], [facility] [address] [place] [phone] 02/05/2025 6:45 EDT Treatment [facility] [place] [address] [place], [place] [id number] Carlota Jin MD 1 [facility], [facility] [address] [place] [phone] 02/07/2025 6:45 EDT Treatment [facility] [place] [address] [place], [place] [id number] Carlota Jin MD 1 [facility], [facility] [address] [place] [phone] 02/09/2025 6:45 EDT Treatment [facility] [place] [address] [place], [place] [id number] Carlota Jin MD 1 [facility], [facility] 2 [place] [phone] 02/12/2025 6:45 EDT Treatment [facility] [place] [address] [place], [place] [id number] Carlota Jin MD 1 [facility] [address] [place] [phone] 02/14/2025 6:45 EDT Treatment [facility] [place] [address] [place], [place] [id number] Carlota Jin MD 1 [facility], [facility] [address] [place] [phone] 02/16/2025 6:45 EDT Treatment [facility] [place] [address] [place], [place] [id number] Carlota Jin MD 1 [facility], [facility] [address] [place] [phone] 02/19/2025 6:45 EDT Treatment [facility] [place] [address] [place] [address] Carlota Jin MD 1 [facility], [facility] [address] [place] [phone] 02/21/2025 6:45 EDT Treatment [facility] [place] [address] [place], [place] [id number] Carlota Jin MD 1 [facility], [facility] [address] [place] [phone] documented as of this encounter Visit Diagnoses Not on filedocumented in this encounter Care Teams Associate Director Finance Relationship Specialty Start Date End Date Ken [place] [address] PCP - General 07/07/23 documented as of this encounter
--- OUTSIDE RECORDS SUMMARY | 2024-12-05 12:20 | XMS_ITS | Encounter Summary ---
Author Organization [facility] Address [address] [place] [address] Care Team Providers Care Temperature Regulator Pyrometer Name Role Phone Ken Greer MD Primary Care Provider [phone] Encounter Details Date Type Department Care Team (Latest Contact Info) Description 08/06/2023 6:45 EDT Treatment [facility] [address] [place], [place] [id number] Carlota Jin MD 1 [facility], Level [address] [place] [address] ESRD (end stage renal disease) ([facility]) (Primary Dx); Anemia of chronic renal failure, unspecified CKD stage; Hypoalbuminemia; Secondary hyperparathyroidism ([facility]) Social History Tobacco Use Types Packs/Day [...] - Temperature - - Respiratory Rate 16 08/06/2023 0627 EDT Oxygen Saturation - - Inhaled Oxygen Concentration - - Weight 87 kg (191 lb 12.8 oz) 08/06/2023 0628 ED T Height - - Body Mass Index 28.32 07/08/2023 0839 EDT documented in this encounter Miscellaneous Notes * Flowsheet Note - Marcela Cox RN - 08/06/2023 1320 EDT 08/06/23 1108 Post-Hemodialysis Assessment Total Blood Processed (L) 88.33 Liters On Line Clearance: spKt/V 1.44 spKt/V Dialyzer Clearance Lightly streaked Treatment UFR (ml:kg:hr) 6.79 ml:kg:hr Final Critline Profile (%/hr) 0.12 Final Profile Profile A Critline refill Not done Fluid Removed (L) 2.5 L Post-Dialysis Scale Weight 86.6 kg (190 lb 14.7 oz) Wheelchair Weight 0 kg (0 lb) Prosthesis Weight 0 kg (0 lb) (boot per notes) Post-Treatment Weight (kg) 86.6 Treatment Weight Change (kg) 2.4 kg Day Target Weight (kg) 87 Post Sitting/Lying BP 150/70 Post Sitting/Lying pulse 65 Post Standing BP 154/82 Post Standing Pulse 71 Temp 36.8 ??C (98.2 ??F) Temp src [...] Info) Description 12/06/2024 6:45 EST Treatment [facility] [place] [address] [place] [address] Carlota Jin MD 1 [facility], Level [address] [place] [address] 12/08/2024 6:45 EST Treatment [facility] [place] [address] [place], [place] [id number] Carlota Jin MD 1 [facility], [facility] 2 [place] [phone] 12/11/2024 6:45 EST Treatment [facility] [place] [address] [place], [place] [phone] Carlota Jin MD 1 [facility], [facility] 2 [place] [phone] 12/13/2024 6:45 EST Treatment [facility] [place] [address] [place], [place] [id number] Carlota Jin MD 1 [facility], [facility] 2 [place] [phone] 12/15/2024 6:45 EST Treatment [facility] [place] [address] [place], [place] [id number] Carlota Jin MD 1 [facility], [facility] 2 [place] [phone] 12/18/2024 6:45 EST Treatment [facility] [place] [address] [place], [place] [id number] Carlota Jin MD 1 [facility], [facility] 2 [place] [phone] 12/20/2024 6:45 EST Treatment [facility] [place] [address] [place], [place] [id number] Carlota Jin MD 1 [facility], [address] [place] [phone] 12/22/2024 6:45 EST Treatment [facility] [place] [address] [place], [place] [phone] Carlota Jin MD 1 [facility], [facility] 2 [place] [phone] 12/25/2024 6:45 EST Treatment [facility] [place] [address] [place], [place] [phone] Carlota Jin MD 1 [facility], [facility] 2 [place] [phone] 12/27/2024 6:45 EST Treatment [facility] [place] [address] [place] [address] Carlota Jin MD 1 [facility], [facility] 2 [place] [phone] 12/29/2024 6:45 EST Treatment [facility] [address] [place], [place] [phone] Carlota Jin MD 1 [facility], [facility] 2 [place] [phone] 01/01/2025 6:45 EDT Treatment [facility] [place] [address] [place], [place] [phone] Carlota Jin MD 1 [facility], [facility] 2 [place] [phone] 01/03/2025 6:45 EDT Treatment [facility] [place] [address] [place], [place] [id number] Carlota Jin MD 1 [facility], [facility] 2 [place] [phone] 01/05/2025 6:45 EDT Treatment [facility] [place] [address] [place], [place] [phone] Carlota Jin MD 1 [facility], [facility] 2 [place] [phone] 01/08/2025 6:45 EDT Treatment [facility] [place] [address] [place] [address] Carlota Jin MD [address] [place] [address], [facility] 2 [place] [phone] 01/10/2025 6:45 EDT Treatment [facility] [place] [address] [place], [place] [phone] Carlota Jin MD [address] [place] [address], [facility] 2 [place] [phone] 01/12/2025 6:45 EDT Treatment [facility] [place] [address] [place], [place] [phone] Carlota Jin MD 1 [facility], [facility] 2 [place] [phone] 01/15/2025 6:45 EDT Treatment [facility] [place] [address] [place], [place] [phone] Carlota Jin MD 1 [facility], [facility] 2 [place] [phone] 01/17/2025 6:45 EDT Treatment [facility] [place] [address] [place], [place] [phone] Carlota Jin MD 1 [facility], [facility] 2 [place] [phone] 01/19/2025 6:45 EDT Treatment [facility] [place] [address] [place] [address] Carlota Jin MD 1 [facility], [address] [phone] 01/22/2025 6:45 EDT Treatment [facility] [place] [address] [place], [place] [phone] Carlota Jin MD 1 [facility], [address] [phone] 01/24/2025 6:45 EDT Treatment [facility] [place] [address] [place] [address] Carlota Jin MD 1 [facility], [facility] 2 [place] [phone] 01/26/2025 6:45 EDT Treatment [facility] [place] [address] [place], [place] [phone] Carltoa Jin MD 1 [facility], [facility] 2 [place] [phone] 01/29/2025 6:45 EDT Treatment [facility] [place] [address] [place], [place] [address] Carlota Jin MD 1 [facility], [facility] 2 [place] [phone] 01/31/2025 6:45 EDT Treatment [facility] [place] [address] [place], [place] [phone] Carlota Jin MD 1 [facility], [facility] 2 [place] [phone] 02/02/2025 6:45 EDT Treatment [facility] [place] [address] [place], [place] [address] Carlota Jin MD 1 [facility], [address] [phone] 02/05/2025 6:45 EDT Treatment [facility] [place] [address] [place], [place] [address] Carlota Jin MD 1 [facility], [facility] 2 [place] [phone] 02/07/2025 6:45 EDT Treatment [facility] [place] [address] [place], [place] [phone] Carlota Jin MD 1 [facility], [facility] 2 [place] [phone] 02/09/2025 6:45 EDT Treatment [facility] [place] [address] [place], [place] [address] Carlota Jin MD 1 [facility], [address] [phone] 02/12/2025 6:45 EDT Treatment [facility] [place] [address] [place] [address] Carlota Jin MD 1 [facility], [address] [phone] 02/14/2025 6:45 EDT Treatment [facility] [place] [address] [place], [place] [phone] Carlota Jin MD 1 [facility], [address] [phone] 02/16/2025 6:45 EDT Treatment [facility] [place] [address] [place], [place] [phone] Carlota Jin MD 1 [facility], [address] [phone] 02/19/2025 6:45 EDT Treatment [facility] [place] [address] [place], [place] [phone] Carlota Jin MD 1 [facility], [address] [phone] 02/21/2025 6:45 EDT Treatment [facility] [place] [address] [place], [place] [phone] Carlota Jin MD 1 [facility], [address] [place] [address] documented as of this encounter Procedures Procedure Name Priority Date/Time Associated Diagnosis Comments HEMODIALYSIS Routine 08/06/2023 6:27 EDT ESRD (end stage renal disease) ([facility]) documented in this encounter Visit Diagnoses Diagnosis ESRD (end stage renal disease) ([facility])- Primary End stage renal disease Anemia of chronic renal failure, unspecified CKD stage Hypoalbuminemia Other disorders of plasma protein metabolism Secondary hyperparathyroidism ([facility]) Secondary hyperparathyroidism (of renal origin) documented in this encounter Administered Medications Inactive Administered Medications - up to 3 most recent administrations Medication Order MAR Action Action Date Dose Rate Site calcium carbonate (TUMS) tablet 500 mg (200 mg elemental calcium) 2 Tablet 2 Tablet, oral, ONCE IN DIALYSIS, 1 dose, On Wed08/06/23 at 0645, Routine, DialysisIndications:ESRD (end stage renal disease) ([facility]),Secondary hyperparathyroidism ([facility]) Given 08/06/2023 6:48 EDT 2 Tablets epoetin ken (EPOGEN) 20,000 unit/2 mL injection 1,000 Units 1,000 Units, intravenous, ONCE IN DIALYSIS, 1 dose, On Wed08/06/23 at 0645, Routine, DialysisIndications:ESRD (end stage renal disease) ([facility]),Anemia of chronic renal failure, unspecified CKD stage Given 08/06/2023 6:49 EDT 1,000 Units heparin injection 9,000 Units 9,000 Units, intravenous, ONCE IN DIALYSIS, 1 dose, On Wed08/06/23 at 0645, Routine, Dialysis, Now x1 bolus 4500 units to be given at the beginning of dialysis 1500 units/hour to be given over the course of dialysis (9000 units total). Stop 1 hour prior to end of treatment. To be administered per Policy [id number].Indications:ESRD (end stage renal disease) ([facility]) Given 08/06/2023 6:48 EDT 9,000 Units LiquaCel liquid protein liquid 30 mL 30 mL, oral, ONCE IN DIALYSIS, 1 dose, On Wed08/06/23 at 0645, RoutineIndications:Hypoalbuminemi a,ESRD (end stage renal disease) ([facility]) Given 08/06/2023 6:49 EDT 30 mL documented in this encounter Discontinued Medications Medication Sig Discontinue Reason Start Date End Da te pregabalin (LYRICA) 100 mg capsule Take 1 Capsule by mouth 2 times daily. Therapy completed 08/06/2023 albuterol (ACCUNEB) 0.63 mg/3 mL nebulizer solution Take 3 mL by nebulization every 4 hours as needed for Wheezing. Therapy completed 08/06/2023 documented as of this encounter Historical Medications * This list may reflect changes made after this encounter. pregabalin (LYRICA) 200 mg capsule Take 1 Capsule by mouth 2 times daily. 08/03/2023 4 sevelamer carbonate (RENVELA) 800 mg tablet 07/02/2023 3 olmesartan (BENICAR) 5 mg tablet TAKE ONE TABLET BY MOUTH EVERY DAY STOP HCTZ 08/04/2023 4 TRULICITY 0.75 mg/0.5 mL subcutaneous pen 08/03/2023 09/08/20 2 3 added in this encounter Orders Dialysis Count Last Ordered Date First Orde red Date HEMODIALYSIS 1 08/06/2023 documented in this encounter Care Teams Temperature Regulator Pyrometer Relationship Specialty Start Date End Date Ken Greer MD [address] [place] [address] PCP - General 07/07/23 documented as of this encounter
--- OUTSIDE RECORDS SUMMARY | 2024-12-05 12:21 | XMS_ITS | Encounter Summary ---
Author Organization [facility] Address [address] [place] [address] Care Team Providers Care Care Consultant Name Role Phone Adeola Villegas MONA Primary Care Provider [phone] Encounter Details Date Type Department Care Team (Late st Contact Info) Description 07/02/2023 Documentation Visit [facility] [address] [place], [place] [phone] Marcela Cox, RN Social History Tobacco Use Types Packs/Day Years Used Date Smoking Tobacco: Every Day Cigarettes Smokeless Tobacco: Never PHQ-2 Answer Date Recorded PHQ-2 SUBTOTAL 1 01/27/2023 Sex and Gender Information Value Date Recorded Sex Assigned at Not on file Legal Sex Male 18:49 EST Gender Identity Male 07/07/2023 14:11 EDT Sexual Orientation Not on file documented as of this encounter Progress Notes * Marcela Cox RN - 07/02/2023 0919 EDT 07/02/23 9:19 [facility]ONC[facility] Medication review of home medications (prescriptions, [id number], herbals, vitamin/mineral/dietary (nutritional) supplements, medical marijuana, and recreational) was completed through: Patient/caregiver given printed prescriptions/medication summary and reviewed for accuracy. Current Medications Current Outpatient Medications Medication ??? albuterol (ACCUNEB) 0.63 mg/3 mL nebulizer solution ??? albuterol 90 mcg/actuation inhaler ??? amLODIPine (NORVASC) 10 mg tablet ??? atorvastatin (LIPITOR) 40 mg tablet ??? BABY ASPIRIN ORAL ??? calcium carbonate (TUMS) 200 mg calcium (500 mg) tablet,chewable ??? carvediloL (COREG) 12.5 mg tablet ??? cholecalciferol, Vitamin D3, 25 mcg (1,000 unit) tablet ??? famotidine (PEPCID) 40 mg tablet ??? FLOVENT HFA 110 mcg/actuation inhaler ??? hydroCHLOROthiazide (HYDRODIURIL) 25 mg tablet ??? hydrOXYzine (ATARAX) 25 mg tablet ??? LEVEMIR FLEXPEN 100 unit/mL (3 mL) injectable pen ??? magnesium oxide (MAG-OX) 400 mg (241.3 mg magnesium) tablet ??? MULTIVITAMIN ORAL ??? nortriptyline (PAMELOR) 25 mg capsule ??? pregabalin (LYRICA) 100 mg capsule ??? sevelamer hydrochloride (RENAGEL) 800 mg tablet No current facility-administered medications for this visit. Marcela Cox RN documented in this encounter Plan of Treatment Upcoming Encounters Date Type Department Care Team (Late st Contact Info) Description 12/06/2024 6:45 EST Treatment [facility] [address] [place], [place] [phone] Carlota Jin MD 1 [facility], [facility] 2 [place] [phone] 12/08/2024 6:45 EST Treatment [facility] [address] [place], [place] [phone] Carlota Jin MD 1 [facility], [facility] 2 [place] [address] 12/11/2024 6:45 EST Treatment [facility] [address] [place], [place] [phone] Carlota Jin MD 1 [facility], Level [address] [place] [phone] 12/13/2024 6:45 EST Treatment [facility] [place] [address] [place], [place] [address] Carlota Jin MD 1 [facility], [facility] 2 [place] [phone] 12/15/2024 6:45 EST Treatment [facility] [place] [address] [place], [place] [phone] Carlota Jin MD 1 [facility], [facility] 2 [place] [phone] 12/18/2024 6:45 EST Treatment [facility] [place] [address] [place], [place] [phone] Carlota Jin MD [address] [facility], [facility] 2 [place] [phone] 12/20/2024 6:45 EST Treatment [facility] [place] [address] [place] [address] Carlota Jin MD [address] [facility], [facility] 2 [place] [phone] 12/22/2024 6:45 EST Treatment [facility] [place] [address] [place], [place] [phone] Carlota Jin MD [address] [facility], [facility] 2 [place] [phone] 12/25/2024 6:45 EST Treatment [facility] [place] [address] [place], [place] [id number] Carlota Jin MD 1 [facility], [facility] 2 [place] [phone] 12/27/2024 6:45 EST Treatment [facility] [place] [address] [place], [place] [phone] Carlota Jin MD 1 [facility], [facility] 2 [place] [phone] 12/29/2024 6:45 EST Treatment [facility] [place] [address] [place], [place] [phone] Carlota Jin MD 1 [facility], [facility] 2 [place] [phone] 01/01/2025 6:45 EDT Treatment [facility] [place] [address] [place], [place] [id number] Carlota Jin MD 1 [facility], [facility] 2 [place] [phone] 01/03/2025 6:45 EDT Treatment [facility] [place] [address] [place], [place] [phone] Carlota Jin MD 1 [facility], [facility] 2 [place] [phone] 01/05/2025 6:45 EDT Treatment [facility] [place] [address] [place], [place] [phone] Carlota Jin MD [address] [facility], [facility] 2 [place] [phone] 01/08/2025 6:45 EDT Treatment [facility] [place] [address] [place], [place] [address] Carlota Jin MD 1 [facility], [facility] 2 [place] [phone] 01/10/2025 6:45 EDT Treatment [facility] [place] [address] [place], [place] [id number] Carlota Jin MD 1 [facility], [facility] 2 [place] [phone] 01/12/2025 6:45 EDT Treatment [facility] [place] [address] [place] [address] Carlota Jin MD 1 [facility], [facility] 2 [place] [phone] 01/15/2025 6:45 EDT Treatment [facility] [place] [address] [place], [place] [phone] Carlota Jin MD 1 [facility], [facility] 2 [place] [phone] 01/17/2025 6:45 EDT Treatment [facility] [place] [address] [place], [place] [id number] Carlota Jin MD 1 [facility], [facility] 2 [place] [phone] 01/19/2025 6:45 EDT Treatment [facility] [place] [address] [place], [place] [id number] Carlota Jin MD 1 [facility], [facility] 2 [place] [phone] 01/22/2025 6:45 EDT Treatment [facility] [place] [address] [place], [place] [id number] Carlota Jin MD 1 [facility], [facility] 2 [place] [phone] 01/24/2025 6:45 EDT Treatment [facility] [place] [address] [place] [address] Carlota Jin MD 1 [facility], [address] [phone] 01/26/2025 6:45 EDT Treatment [facility] [place] [address] [place], [place] [id number] Carlota Jin MD 1 [facility], [facility] 2 [place] [phone] 01/29/2025 6:45 EDT Treatment [facility] [place] [address] [place], [place] [id number] Carlota Jin MD 1 [facility], [facility] 2 [place] [phone] 01/31/2025 6:45 EDT Treatment [facility] [place] [address] [place] [address] Carlota Jin MD 1 [facility], [facility] 2 [place] [phone] 02/02/2025 6:45 EDT Treatment [facility] [place] [address] [place] [address] Carlota Jin MD 1 [facility], [facility] 2 [place] [phone] 02/05/2025 6:45 EDT Treatment [facility] [place] [address] [place] [address] Carlota Jin MD 1 [facility], [address] [phone] 02/07/2025 6:45 EDT Treatment [facility] [place] [address] [place] [address] Carlota Jin MD 1 [facility], [address] [phone] 02/09/2025 6:45 EDT Treatment [facility] [place] [address] [place] [address] Carlota Jin MD 1 [facility], [facility] 2 [place] [phone] 02/12/2025 6:45 EDT Treatment [facility] [place] [address] [place], [place] [id number] Carlota Jin MD 1 [facility], [facility] 2 [place] [phone] 02/14/2025 6:45 EDT Treatment [facility] [place] [address] [place], [place] [address] Carlota Jin MD [address] [place] [address], [address] [phone] 02/16/2025 6:45 EDT Treatment [facility] [place] [address] [place], [place] [id number] Carlota Jin MD [address] [place] [address], [address] [phone] 02/19/2025 6:45 EDT Treatment [facility] [address] [place] [address] Carlota Jin MD [address] [place] [address], [address] [phone] 02/21/2025 6:45 EDT Treatment [facility] [address] [place], [place] [phone] Carlota Jin MD [address] [place] [address], [facility] 2 [place] [phone] documented as of this encounter Visit Diagnoses Not on filedocumented in this encounter Care Teams Care Consultant Relationship Specialty Start Date End Date Adeola Villegas APRN Moh[address] [address] PCP - General 10/12/16 07/06/23 documented as of this encounter
--- OUTSIDE RECORDS SUMMARY | 2024-12-05 12:21 | XMS_ITS | Encounter Summary ---
Author Organization [facility] Address [address] [place] [address] Care Team Providers Care Weather Stripper Name Role Phone Ken Greer MD Primary Care Provider [phone] Encounter Details Date Type Department Care Team (Latest Contact Info) Description 07/09/2023 6:45 EDT Treatment [facility] [address] [place], [place] [phone] Carlota Jin MD 1 [facility], Level [address] [place] [address] ESRD (end stage renal disease) ([facility]) (Primary Dx); Anemia of chronic renal failure, unspecified CKD stage; Hypoalbuminemia; Secondary hyperparathyroidism ([facility]) Social History Tobacco Use Types [...] - Temperature - - Respiratory Rate 16 07/09/2023 0627 EDT Oxygen Saturation - - Inhaled Oxygen Concentration - - Weight 87.5 kg (192 lb 14.4 oz) 07/09/2023 0629 EDT Height - - Body Mass Index 28.49 07/08/2023 0839 EDT documented in this encounter Miscellaneous Notes * Flowsheet Note - Marcela Cox RN - 07/09/2023 1402 EDT 07/09/23 1058 Post-Hemodialysis Assessment Total Blood Processed (L) 53.42 Liters On Line Clearance: spKt/V 1.35 spKt/V Dialyzer Clearance Lightly streaked Treatment UFR (ml:kg:hr) 1.89 ml:kg:hr Critline refill Not done Fluid Removed (L) 1.4 L Post-Dialysis Scale Weight 86.8 kg (191 lb 5.8 oz) Wheelchair Weight 0 kg (0 lb) Prosthesis Weight 0 kg (0 lb) Post-Treatment Weight (kg) 86.8 Treatment Weight Change (kg) 0.7 kg Day Target Weight (kg) 87 Post Sitting/Lying BP (!) 192/103 Post Sitting/Lying pulse 81 Post Standing BP 170/86 Post Standing Pulse 87 Temp 36.5 ??C (97.7 ??F) Post access assessment AVF/AFG Hemostasis achieved Yes Note 10 min hold Orientation Alert and Oriented x3 Yes Time Yes Place Yes Person Yes Cooperative Yes Disoriented No Discharge Ambulation Methods Ambulatory with assistive device Ambulation device Cane Wrap up items Patient Response to Treatment Removed 2L UF goal without difficulty. 600cc removed and lines clotted and were reset, pt then removed additioanl 1.4L. Comments no concerns voiced post tx. d/c stable. documented in this encounter Plan of Treatment Upcoming Encounters Date Type Department Care Team (Late st Contact Info) Description 12/06/2024 6:45 EST Treatment [facility] [place] [address] [place] [address] Carlota Jin MD 1 [facility], [address] [place] [address] 12/08/2024 6:45 EST Treatment [facility] [place] [address] [place], [place] [phone] Carlota Jin MD 1 [facility], [facility] [address] [place] [phone] 12/11/2024 6:45 EST Treatment [facility] [place] [address] [place], [place] [phone] Carlota Jin MD 1 [facility], [facility] [address] [place] [phone] 12/13/2024 6:45 EST Treatment [facility] [place] [address] [place], [place] [phone] Carlota Jin MD 1 [facility], [facility] [address] [place] [phone] 12/15/2024 6:45 EST Treatment [facility] [place] [address] [place], [place] [phone] Carlota Jin MD 1 [facility], [facility] [address] [place] [phone] 12/18/2024 6:45 EST Treatment [facility] [place] [address] [place], [place] [phone] Carlota Jin MD 1 [facility], [facility] [address] [place] [phone] 12/20/2024 6:45 EST Treatment [facility] [place] [address] [place], [place] [phone] Carlota Jin MD 1 [facility], [facility] [address] [place] [phone] 12/22/2024 6:45 EST Treatment [facility] [place] [address] [place], [place] [id number] Carlota Jin MD 1 [facility], [facility] [address] [place] [phone] 12/25/2024 6:45 EST Treatment [facility] [place] [address] [place], [place] [phone] Carlota Jin MD 1 [facility], [facility] [address] [place] [phone] 12/27/2024 6:45 EST Treatment [facility] [place] [address] [place], [place] [phone] Carlota Jin MD 1 [facility], [facility] [address] [place] [phone] 12/29/2024 6:45 EST Treatment [facility] [place] [address] [place], [place] [phone] Carlota Jin MD 1 [facility], [facility] [address] [place] [phone] 01/01/2025 6:45 EDT Treatment [facility] [place] [address] [place], [place] [phone] Carlota Jin MD 1 [facility], [facility] [address] [place] [phone] 01/03/2025 6:45 EDT Treatment [facility] [place] [address] [place], [place] [phone] Carlota Jin MD 1 [facility], [facility] [address] [place] [phone] 01/05/2025 6:45 EDT Treatment [facility] [place] [address] [place], [place] [phone] Carlota Jin MD 1 [facility], [address] [phone] 01/08/2025 6:45 EDT Treatment [facility] [place] [address] [place], [place] [phone] Carlota Jin MD 1 [facility], [address] [phone] 01/10/2025 6:45 EDT Treatment [facility] [place] [address] [place], [place] [phone] Carlota Jin MD 1 [facility], [facility] [address] [place] [phone] 01/12/2025 6:45 EDT Treatment [facility] [place] [address] [place], [place] [phone] Carlota Jin MD 1 [facility], [facility] [address] [place] [phone] 01/15/2025 6:45 EDT Treatment [facility] [place] [address] [place], [place] [phone] Carlota Jin MD 1 [facility], [facility] [address] [place] [phone] 01/17/2025 6:45 EDT Treatment [facility] [place] [address] [place], [place] [phone] Carlota Jin MD 1 [facility], [facility] [address] [place] [phone] 01/19/2025 6:45 EDT Treatment [facility] [place] [address] [place] [address] Carlota Jin MD 1 [facility], [facility] [address] [place] [phone] 01/22/2025 6:45 EDT Treatment [facility] [place] [address] [place] [address] Carlota Jin MD 1 [facility], [facility] [address] [place] [phone] 01/24/2025 6:45 EDT Treatment [facility] [place] [address] [place] [address] Carlota Jin MD 1 [facility], [facility] [address] [place] [phone] 01/26/2025 6:45 EDT Treatment [facility] [place] [address] [place], [place] [phone] Carlota Jin MD 1 [facility], [facility] [address] [place] [phone] 01/29/2025 6:45 EDT Treatment [facility] [place] [address] [place], [place] [phone] Carlota Jin MD 1 [facility], [facility] [address] [place] [phone] 01/31/2025 6:45 EDT Treatment [facility] [place] [address] [place], [place] [phone] Carlota Jin MD 1 [facility], [facility] [address] [place] [phone] 02/02/2025 6:45 EDT Treatment [facility] [place] [address] [place] [address] Carlota Jin MD 1 [facility], [address] [phone] 02/05/2025 6:45 EDT Treatment [facility] [place] [address] [place], [place] [phone] Carlota Jin MD 1 [facility], [facility] [address] [place] [phone] 02/07/2025 6:45 EDT Treatment [facility] [place] [address] [place], [place] [phone] Carlota Jin MD 1 [facility], [facility] [address] [place] [phone] 02/09/2025 6:45 EDT Treatment [facility] [place] [address] [place], [place] [phone] Carlota Jin MD 1 [facility], [facility] [address] [place] [phone] 02/12/2025 6:45 EDT Treatment [facility] [place] [address] [place] [address] Carlota Jin MD 1 [facility], [facility] [address] [place] [phone] 02/14/2025 6:45 EDT Treatment [facility] [place] [address] [place] [address] Carlota Jin MD 1 [facility], [facility] [address] [place] [phone] 02/16/2025 6:45 EDT Treatment [facility] [place] [address] [place], [place] [phone] Carlota Jin MD 1 [facility], [facility] [address] [place] [phone] 02/19/2025 6:45 EDT Treatment [facility] [place] [address] [place] [address] Carlota Jin MD 1 [facility], [facility] [address] [place] [phone] 02/21/2025 6:45 EDT Treatment [facility] [place] [address] [place], [place] [phone] Carlota Jin MD 1 [facility], [facility] [address] [place] [phone] documented as of this encounter Procedures Procedure Name Priority Date/Time Associated Diagnosis Comments HEMODIALYSIS Routine 07/09/2023 6:27 EDT ESRD (end stage renal disease) ([facility]) documented in this encounter Visit Diagnoses Diagnosis ESRD (end stage renal disease) ([facility])- Primary End stage renal disease Anemia of chronic renal failure, unspecified CKD stage Hypoalbuminemia Other disorders of plasma protein metabolism Secondary hyperparathyroidism ([facility]) Secondary hyperparathyroidism (of renal origin) documented in this encounter Administered Medications Inactive Administered Medications - up to 3 most recent administrations Medication Order MAR Action Action Date Dose Rate Site calcium carbonate (TUMS) tablet 500 mg (200 mg elemental calcium) 2 Tablet 2 Tablet, oral, ONCE IN DIALYSIS, 1 dose, On Wed07/09/23 at 0645, Routine, DialysisIndications:ESRD (end stage renal disease) ([facility]),Secondary hyperparathyroidism ([facility]) Given 07/09/2023 6:52 EDT 2 Tablets epoetin ken (EPOGEN) 20,000 unit/2 mL injection 500 Units 500 Units, intravenous, ONCE IN DIALYSIS, 1 dose, On Wed07/09/23 at 0645, Routine, DialysisIndications:ESRD (end stage renal disease) ([facility]),Anemia of chronic renal failure, unspecified CKD stage Given 07/09/2023 6:52 EDT 500 Units heparin injection 9,000 Units 9,000 Units, intravenous, ONCE IN DIALYSIS, 1 dose, On Wed07/09/23 at 0645, Routine, Dialysis, Now x1 bolus 4500 units to be given at the beginning of dialysis 1500 units/hour to be given over the course of dialysis (9000 units total). Stop 1 hour prior to end of treatment. To be administered per Policy [id number].Indications:ESRD (end stage renal disease) ([facility]) Given 07/09/2023 6:45 EDT 9,000 Units LiquaCel liquid protein liquid 30 mL 30 mL, oral, ONCE IN DIALYSIS, 1 dose, On Wed07/09/23 at 0645, RoutineIndications:Hypoalbuminemi a,ESRD (end stage renal disease) ([facility]) Given 07/09/2023 6:52 EDT 30 mL documented in this encounter Orders Dialysis Count Last Ordered Date First Orde red Date HEMODIALYSIS 1 07/09/2023 documented in this encounter Care Teams Weather Stripper Relationship Specialty Start Date End Date Ken Greer MD [address] [place] [address] PCP - General 07/07/23 documented as of this encounter
--- OUTSIDE RECORDS SUMMARY | 2024-12-05 12:21 | XMS_ITS | Encounter Summary ---
Author Organization [facility] Address [address] [place] [address] Care Team Providers Care Publicity Person Name Role Phone Adeola Villegas APRN Primary Care Provider [phone] Encounter Details Date Type Department Care Team (Latest Contact Info) Description 06/30/2023 6:45 EDT Treatment [facility] [address] [place] [address] Carlota Jin MD 1 [facility], Level [address] [place] [address] ESRD (end stage renal disease) ([facility]) (Primary Dx); Anemia of chronic renal failure, unspecified CKD stage; Hypoalbuminemia; Secondary hyperparathyroidism ([facility]) Social History Tobacco Use [...] - Temperature - - Respiratory Rate 18 06/30/2023 1050 EDT Oxygen Saturation - - Inhaled Oxygen Concentration - - Weight - - Height - - Body Mass Index - - documented in this encounter Miscellaneous Notes * Flowsheet Note - Teto Ribeiro RN - 06/30/2023 1622 EDT 06/30/23 1050 Post-Hemodialysis Assessment Total Blood Processed (L) 89.12 Liters On Line Clearance: spKt/V 1.46 spKt/V Dialyzer Clearance Lightly streaked Treatment UFR (ml:kg:hr) 2.89 ml:kg:hr Final Critline Profile (%/hr) -0.95 Final Profile Profile A Critline refill Negative (H1: 31.2 H2: 31.1) Fluid Removed (L) 1.2 L Post-Dialysis Scale Weight 86.5 kg (190 lb 11.2 oz) Wheelchair Weight 0 kg (0 lb) Prosthesis Weight 0 kg (0 lb) Post-Treatment Weight (kg) 86.5 Treatment Weight Change (kg) 1 kg Day Target Weight (kg) 86.8 Post Sitting/Lying BP 175/84 Post Sitting/Lying pulse 71 Post Standing BP 145/74 Post Standing Pulse 75 Temp 36.5 ??C (97.7 ??F) Temp src Temporal Resp 18 Post access assessment Bruit present: Yes Thrill Present AVF/AFG Hemostasis achieved Yes Note Patient held for 10mins with blue clamps Orientation Alert and Oriented x3 Yes Time Yes Place Yes Person Yes Cooperative Yes Disoriented No Discharge Ambulation Methods Ambulatory without assistance Wrap up items Patient Response to Treatment Teri. tx well, removed 1.2L Comments Pt denies any complaints, no s/s of distress noted, VSS upon d/c * Dialysis Rounding - Skye Gomez NP - 06/30/2023 0645 EDT Dialysis Provider's Routine Assessment The visit was conducted via telehealth (audio/video) between the [facility] dialysis unit and the provider from their [...] deductible or coinsurance for this service. Gerson Bruner was seen and examined as appropriate during Dialysis. Pertinent lab results were reviewed. Changes since last visit: None Changes to current prescriptions/orders: None Marked hyperkalemia on monthly labs, unusual for him, we will repeat Skye Gomez NP documented in this encounter Plan of Treatment Upcoming Encounters Date Type Department Care Team (Late st Contact Info) Description 12/06/2024 6:45 EST Treatment [facility] [address] [place], [place] [id number] Carlota Jin MD [address] [place] [address], [facility] [address] [place] [phone] 12/08/2024 6:45 EST Treatment [facility] [address] [place], [place] [id number] Carlota Jin MD 1 [facility], [facility] [address] [place] [phone] 12/11/2024 6:45 EST Treatment [facility] [address] [place] [id number] Carlota Jin MD [address] [place] [address], [facility] [address] [place] [phone] 12/13/2024 6:45 EST Treatment [facility] [address] [place] [address] Carlota Jin MD 1 [facility], [facility] [address] [place] [phone] 12/15/2024 6:45 EST Treatment [facility] [place] [address] [place] [address] Carlota Jin MD 1 [facility], [facility] [address] [place] [phone] 12/18/2024 6:45 EST Treatment [facility] [place] [address] [place] [address] Carlota Jin MD 1 [facility], [facility] [address] [place] [phone] 12/20/2024 6:45 EST Treatment [facility] [place] [address] [place] [address] Carlota Jin MD 1 [facility], [facility] [address] [place] [phone] 12/22/2024 6:45 EST Treatment [facility] [place] [address] [place] [address] Carlota Jin MD 1 [facility], [facility] [address] [place] [phone] 12/25/2024 6:45 EST Treatment [facility] [place] [address] [place], [place] [id number] Carlota Jin MD 1 [facility], [facility] [address] [place] [phone] 12/27/2024 6:45 EST Treatment [facility] [place] [address] [place], [place] [address] Carlota Jin MD 1 [facility], [facility] [address] [place] [phone] 12/29/2024 6:45 EST Treatment [facility] [place] [address] [place], [place] [id number] Carlota Jin MD 1 [facility], [facility] [address] [place] [phone] 01/01/2025 6:45 EDT Treatment [facility] [place] [address] [place], [place] [address] [phone] Carlota Jin MD 1 [facility], [facility] [address] [place] [phone] 01/03/2025 6:45 EDT Treatment [facility] [place] [address] [place] [address] Carlota Jin MD 1 [facility], [facility] [address] [place] [phone] 01/05/2025 6:45 EDT Treatment [facility] [place] [address] [place], [place] [id number] Carlota Jin MD 1 [facility], [facility] [address] [place] [phone] 01/08/2025 6:45 EDT Treatment [facility] [place] [address] [place], [place] [address] Carlota Jin MD 1 [facility], [address] [phone] 01/10/2025 6:45 EDT Treatment [facility] [place] [address] [place] [address] Carlota Jin MD 1 [facility], [address] [phone] 01/12/2025 6:45 EDT Treatment [facility] [place] [address] [place], [place] [id number] Carlota Jin MD 1 [facility], [address] [phone] 01/15/2025 6:45 EDT Treatment [facility] [place] [address] [place], [place] [id number] Carlota Jin MD 1 [facility], [address] [phone] 01/17/2025 6:45 EDT Treatment [facility] [place] [address] [place], [place] [id number] Carlota Jin MD 1 [facility], [address] [phone] 01/19/2025 6:45 EDT Treatment [facility] [place] [address] [place], [place] [id number] Carlota Jin MD 1 [facility], [facility] [address] [place] [phone] 01/22/2025 6:45 EDT Treatment [facility] [place] [address] [place], [place] [id number] Carlota Jin MD 1 [facility], [facility] [address] [place] [phone] 01/24/2025 6:45 EDT Treatment [facility] [place] [address] [place], [place] [id number] Carlota Jin MD 1 [facility], [facility] [address] [place] [phone] 01/26/2025 6:45 EDT Treatment [facility] [place] [address] [place], [place] [id number] Carlota Jin MD [address] [place] [address], [address] [phone] 01/29/2025 6:45 EDT Treatment [facility] [place] [address] [place], [place] [id number] Carlota Jin MD 1 [facility], [facility] [address] [place] [phone] 01/31/2025 6:45 EDT Treatment [facility] [address] [place], [place] [id number] Carlota Jin MD 1 [facility], [facility] [address] [place] [phone] 02/02/2025 6:45 EDT Treatment [facility] [place] [address] [place], [place] [address] Carlota Jin MD 1 [facility], [facility] [address] [place] [phone] 02/05/2025 6:45 EDT Treatment [facility] [place] [address] [place], [place] [address] Carlota Jin MD 1 [facility], [facility] [address] [place] [phone] 02/07/2025 6:45 EDT Treatment [facility] [place] [address] [place], [place] [address] Carlota Jin MD 1 [facility], [address] [phone] 02/09/2025 6:45 EDT Treatment [facility] [place] [address] [place], [place] [id number] Carlota Jin MD 1 [facility], [address] [phone] 02/12/2025 6:45 EDT Treatment [facility] [place] [address] [place], [place] [address] Carlota Jin MD 1 [facility], [facility] [address] [place] [phone] 02/14/2025 6:45 EDT Treatment [facility] [place] [address] [place], [place] [id number] Carlota Jin MD 1 [facility], [facility] [address] [place] [phone] 02/16/2025 6:45 EDT Treatment [facility] [place] [address] [place], [place] [id number] Carlota Jin MD 1 [facility], [facility] [address] [place] [phone] 02/19/2025 6:45 EDT Treatment [facility] [place] [address] [place], [place] [address] Carlota Jin MD 1 [facility], [facility] [address] [place] [phone] 02/21/2025 6:45 EDT Treatment [facility] [place] [address] [place], [place] [id number] Carlota Jin MD 1 [facility], [address] [phone] documented as of this encounter Procedures Procedure Name Priority Date/Time Associated Diagnosis Comments COMPLETE BLOOD COUNT Routine 06/30/2023 6:49 EDT ESRD (end stage renal disease) ([facility]) HEMODIALYSIS Routine 06/30/2023 6:37 EDT ESRD (end stage renal disease) ([facility]) documented in this encounter Results * (ABNORMAL) COMPLETE BLOOD COUNT (06/30/2023 6:49 EDT) WBC 7.81 4.00 - 10.40 K/cmm 06/30/2023 21:21 EDT [facility] RBC 3.21(L) 4.36 - 5.78 M/cmm 06/30/2023 21:21 [facility] Hemoglobin 10.3(L) 13.8 - 17.3 g/dL 06/30/2023 21:21 [facility] HCT 30.6(L) 39.5 - 50.2 % 06/30/2023 21:21 [facility] MCV 95 81 - 95 fL 06/30/2023 21:21 [facility] MCH 32.1 27.6 - 33.0 pg 06/30/2023 21:21 [facility] MCHC 33.7 32.8 - 36.4 g/dL 06/30/2023 21:21 [facility] RDW-CV 12.2 <14.2 % 06/30/2023 21:21 [facility] RDW-SD 42.7 <46.0 fl 06/30/2023 21:21 [facility] PLT 236 141 - 377 K/cmm 06/30/2023 21:21 [facility] MPV 11.7 9.5 - 12.7 fL 06/30/2023 21:21 [facility] Blood VENOUS BLOOD / Unknown Venipuncture / Unknown 06/30/2023 6:49 EDT 06/30/2023 6:50 EDT us Carlota Jin MD HEMATOLOGY & PF4 ORDERABL ES Final Result [facility] [address] [place] [address] documented in this encounter Visit Diagnoses Diagnosis ESRD (end stage renal disease) ([facility])- Primary End stage renal disease Anemia of chronic renal failure, unspecified CKD stage Hypoalbuminemia Other disorders of plasma protein metabolism Secondary hyperparathyroidism ([facility]) Secondary hyperparathyroidism (of renal origin) documented in this encounter Administered Medications Inactive Administered Medications - up to 3 most recent administrations Medication Order MAR Action Action Date Dose Rate Site calcium carbonate (TUMS) tablet 500 mg (200 mg elemental calcium) 2 Tablet 2 Tablet, oral, ONCE IN DIALYSIS, 1 dose, On Wed06/30/23 at 0700, Routine, DialysisIndications:ESRD (end stage renal disease) ([facility]),Secondary hyperparathyroidism ([facility]) Given 06/30/2023 7:39 EDT 2 Tablets epoetin ken (EPOGEN) 20,000 unit/2 mL injection 500 Units 500 Units, intravenous, ONCE IN DIALYSIS, 1 dose, On Wed06/30/23 at 0700, Routine, DialysisIndications:ESRD (end stage renal disease) ([facility]),Anemia of chronic renal failure, unspecified CKD stage Given 06/30/2023 7:38 EDT 500 Units heparin injection 9,000 Units 9,000 Units, intravenous, ONCE IN DIALYSIS, 1 dose, On Wed06/30/23 at 0700, Routine, Dialysis, Now x1 bolus 4500 units to be given at the beginning of dialysis 1500 units/hour to be given over the course of dialysis (9000 units total). Stop 1 hour prior to end of treatment. To be administered per Policy [id number].Indications:ESRD (end stage renal disease) ([facility]) Given 06/30/2023 6:50 EDT 9,000 Units LiquaCel liquid protein liquid 30 mL 30 mL, oral, ONCE IN DIALYSIS, 1 dose, On Wed06/30/23 at 0700, RoutineIndications:Hypoalbuminemi a,ESRD (end stage renal disease) ([facility]) Given 06/30/2023 7:39 EDT 30 mL documented in this encounter Orders Dialysis Count Last Ordered Date First Orde red Date HEMODIALYSIS 1 06/30/2023 documented in this encounter Care Teams Publicity Person Relationship Specialty Start Date End Date Adeola Villegas APRN [address] [place] [address] PCP - General 10/12/16 07/06/23 documented as of this encounter
--- OUTSIDE RECORDS SUMMARY | 2024-12-05 12:21 | XMS_ITS | Encounter Summary ---
Author Organization [facility] Address [address] [place] [address] Care Team Providers Care Building Illuminating Engineer Name Role Phone Adeola Villegas MONA Primary Care Provider [phone] Encounter Details Date Type Department Care Team (Latest Contact Info) Description 07/02/2023 6:45 EDT Treatment [facility] [address] [place] [address] Carlota Jin MD 1 [facility], Level [address] [place] [address] ESRD (end stage renal disease) ([facility]) (Primary Dx); Anemia of chronic renal failure, unspecified CKD stage; Hypoalbuminemia; Secondary hyperparathyroidism ([facility]) Social History Tobacco Use Types Packs/Day [...] - Temperature - - Respiratory Rate 18 07/02/2023 1042 EDT Oxygen Saturation - - Inhaled Oxygen Concentration - - Weight - - Height - - Body Mass Index - - documented in this encounter Plan of Treatment Upcoming Encounters Date Type Department Care Team (Late st Contact Info) Description 12/06/2024 6:45 EST Treatment [facility] [place] [address] [place], [place] [id number] Carlota Jin MD 1 [facility], [facility] 2 [place] [phone] 12/08/2024 6:45 EST Treatment [facility] [place] [address] [place], [place] [id number] Carlota Jin MD 1 [facility], [facility] 2 [place] [phone] 12/11/2024 6:45 EST Treatment [facility] [place] [address] [place], [place] [phone] Carlota Jin MD 1 [facility], [facility] 2 [place] [phone] 12/13/2024 6:45 EST Treatment [facility] [place] [address] [place], [place] [phone] Carlota Jin MD 1 [facility], [facility] 2 [place] [phone] 12/15/2024 6:45 EST Treatment [facility] [place] [address] [place], [place] [phone] Carlota Jin MD 1 [facility], [facility] 2 [place] [phone] 12/18/2024 6:45 EST Treatment [facility] [place] [address] [place], [place] [phone] Carlota Jin MD 1 [facility], Level [address] [place] [phone] 12/20/2024 6:45 EST Treatment [facility] [place] [address] [place], [place] [address] Carlota Jin MD 1 [facility], [facility] 2 [place] [phone] 12/22/2024 6:45 EST Treatment [facility] [place] [address] [place], [place] [phone] Carlota Jin MD 1 [facility], [facility] 2 [place] [phone] 12/25/2024 6:45 EST Treatment [facility] [place] [address] [place] [address] Carlota Jin MD 1 [facility], [facility] 2 [place] [phone] 12/27/2024 6:45 EST Treatment [facility] [address] [place], [place] [id number] Carlota Jin MD 1 [facility], [facility] 2 [place] [phone] 12/29/2024 6:45 EST Treatment [facility] [place] [address] [place], [place] [phone] Carlota Jin MD 1 [facility], [facility] 2 [place] [phone] 01/01/2025 6:45 EDT Treatment [facility] [place] [address] [place], [place] [phone] Carlota Jin MD 1 [facility], [facility] 2 [place] [phone] 01/03/2025 6:45 EDT Treatment [facility] [place] [address] [place], [place] [phone] Carlota Jin MD 1 [facility], [facility] 2 [place] [phone] 01/05/2025 6:45 EDT Treatment [facility] - [place] [address] [place], [place] [phone] Carlota Jin MD [address] [place] [address], [facility] 2 [place] [phone] 01/08/2025 6:45 EDT Treatment [facility] - [place] [address] [place], [place] [phone] Carlota Jin MD 1 [facility], [facility] 2 [place] [phone] 01/10/2025 6:45 EDT Treatment [facility] [place] [address] [place], [place] [phone] Carlota Jin MD 1 [facility], [facility] 2 [place] [phone] 01/12/2025 6:45 EDT Treatment [facility] [place] [address] [place] [phone] Carlota Jin MD 1 [facility], [facility] 2 [place] [phone] 01/15/2025 6:45 EDT Treatment [facility] [place] [address] [place], [place] [phone] Carlota Jin MD 1 [facility], [facility] 2 [place] [phone] 01/17/2025 6:45 EDT Treatment [facility] - [place] [address] [place] [address] Carlota Jni MD 1 [facility], [address] [phone] 01/19/2025 6:45 EDT Treatment [facility] - [place] [address] [place], [place] [phone] Carlota Jin MD 1 [facility], [address] [phone] 01/22/2025 6:45 EDT Treatment [facility] - [place] [address] [place] [address] Carlota Jin MD 1 [facility], [facility] 2 [place] [phone] 01/24/2025 6:45 EDT Treatment [facility] [place] [address] [place], [place] [phone] Carlota Jin MD 1 [facility], [facility] 2 [place] [phone] 01/26/2025 6:45 EDT Treatment [facility] [place] [address] [place], [place] [address] Carlota Jin MD 1 [facility], [facility] 2 [place] [phone] 01/29/2025 6:45 EDT Treatment [facility] [place] [address] [place], [place] [address] Carlota Jin MD 1 [facility], [facility] 2 [place] [phone] 01/31/2025 6:45 EDT Treatment [facility] [place] [address] [place] [address] Carlota Jin MD 1 [facility], [address] [phone] 02/02/2025 6:45 EDT Treatment [facility] [place] [address] [place], [place] [address] Carlota Jin MD 1 [facility], [facility] 2 [place] [phone] 02/05/2025 6:45 EDT Treatment [facility] [place] - [place] [address] [place], [place] [phone] Carlota Jin MD 1 [facility], [facility] 2 [place] [phone] 02/07/2025 6:45 EDT Treatment [facility] [place] - [place] [address] [place], [place] [address] Carlota Jin MD 1 [facility], [address] [phone] 02/09/2025 6:45 EDT Treatment [facility] [place] - [place] [address] [place], [place] [address] [phone] Carlota Jin MD 1 [facility], [address] [phone] 02/12/2025 6:45 EDT Treatment [facility] [address] [place], [place] [address] Carlota Jin MD 1 [facility], [address] [phone] 02/14/2025 6:45 EDT Treatment [facility] [place] [address] [place] [address] Carlota Jin MD 1 [facility], [address] [phone] 02/16/2025 6:45 EDT Treatment [facility] - [place] [address] [place], [place] [phone] Carlota Jin MD [address] [phone] 02/19/2025 6:45 EDT Treatment [facility] [place] [address] [place], [place] [address] Carlota Jin MD 1 [facility], [address] [phone] 02/21/2025 6:45 EDT Treatment [facility] [place] [address] [place], [place] [address] Carlota Jin MD 1 [facility], Level [address] [place] [address] documented as of this encounter Procedures Procedure Name Priority Date/Time Associated Diagnosis Comments POSTDIALYSIS BUN WITH URR CALCULATION Routine 07/02/2023 10:48 EDT ESRD (end stage renal disease) ([facility]) BUN, PREDIALYSIS Routine 07/02/2023 6:31 EDT ESRD (end stage renal disease) ([facility]) HEMODIALYSIS Routine 07/02/2023 6:29 EDT ESRD (end stage renal disease) ([facility]) documented in this encounter Results * (ABNORMAL) POSTDIALYSIS BUN WITH URR CALCULATION (07/02/2023 10:48 EDT) BUN, Postdialysis 18 10 - 26 mg/dL 07/02/2023 20:46 EDT [facility] Urea Reduction Rate 69.5 Not Established % 07/02/2023 20:46 EDT [facility] Comment: NOTE: Reference range not established for Urea Reduction Rate. BUN 59(H) 10 - 26 mg/dL 07/02/2023 20:46 EDT [facility] Blood VENOUS BLOOD / Unknown Venipuncture / Unknown 07/02/2023 10:48 EDT 07/02/2023 10:48 EDT us Carlota Jin MD CHEMISTRY & BLOOD GAS ORD ERABLES Final Result [facility] [address] [place] [address] * (ABNORMAL) BUN, PREDIALYSIS (07/02/2023 6:31 EDT) BUN, Predialysis 59(H) 10 - 26 mg/dL 07/02/2023 20:45 EDT [facility] Blood VENOUS BLOOD / Unknown Venipuncture / Unknown 07/02/2023 6:31 EDT 07/02/2023 6:32 EDT us Carlota Jin MD CHEMISTRY & BLOOD GAS ORD ERABLES Final Result [facility] [address] [place] [address] documented in this encounter Visit Diagnoses Diagnosis ESRD (end stage renal disease) ([facility])- Primary End stage renal disease Anemia of chronic renal failure, unspecified CKD stage Hypoalbuminemia Other disorders of plasma protein metabolism Secondary hyperparathyroidism ([facility]) Secondary hyperparathyroidism (of renal origin) documented in this encounter Administered Medications Inactive Administered Medications - up to 3 most recent administrations Medication Order MAR Action Action Date Dose Rate Site calcium carbonate (TUMS) tablet 500 mg (200 mg elemental calcium) 2 Tablet 2 Tablet, oral, ONCE IN DIALYSIS, 1 dose, On Wed07/02/23 at 0645, Routine, DialysisIndications:ESRD (end stage renal disease) ([facility]),Secondary hyperparathyroidism ([facility]) Given 07/02/2023 6:50 EDT 2 Tablets epoetin ken (EPOGEN) 20,000 unit/2 mL injection 500 Units 500 Units, intravenous, ONCE IN DIALYSIS, 1 dose, On Wed07/02/23 at 0645, Routine, DialysisIndications:ESRD (end stage renal disease) ([facility]),Anemia of chronic renal failure, unspecified CKD stage Given 07/02/2023 6:50 EDT 500 Units heparin injection 9,000 Units 9,000 Units, intravenous, ONCE IN DIALYSIS, 1 dose, On Wed07/02/23 at 0645, Routine, Dialysis, Now x1 bolus 4500 units to be given at the beginning of dialysis 1500 units/hour to be given over the course of dialysis (9000 units total). Stop 1 hour prior to end of treatment. To be administered per Policy [id number].Indications:ESRD (end stage renal disease) ([facility]) Given 07/02/2023 6:50 EDT 9,000 Units LiquaCel liquid protein liquid 30 mL 30 mL, oral, ONCE IN DIALYSIS, 1 dose, On Wed07/02/23 at 0645, RoutineIndications:Hypoalbuminemi a,ESRD (end stage renal disease) ([facility]) Given 07/02/2023 6:50 EDT 30 mL documented in this encounter Orders Dialysis Count Last Ordered Date First Orde red Date HEMODIALYSIS 1 07/02/2023 documented in this encounter Care Teams Building Illuminating Engineer Relationship Specialty Start Date End Date Adeola Villegas APRN [address] [place] [address] PCP - General 10/12/16 07/06/23 documented as of this encounter
--- OUTSIDE RECORDS SUMMARY | 2024-12-05 12:21 | XMS_ITS | Encounter Summary ---
Author Organization [facility] Address [address] [place] [address] Care Team Providers Care Porcelain Slusher Name Role Phone Adeola Villegas APRN Primary Care Provider [phone] Encounter Details Date Type Department Care Team (Late st Contact Info) Description 07/01/2023 Documentation Visit [facility] [address] [place] [phone] Shelley Eden, RD [address] [place] [address] Social History Tobacco Use Types Packs/Day Years [...] 12/06/2024 6:45 EST Treatment [facility] [place] - [place] [address] [place] [phone] Carlota Jin MD 1 [facility], Level [address] [place] [phone] 12/08/2024 6:45 EST Treatment [facility] [address] [place] [phone] Carlota Jin MD [address] [facility], [facility] 2 [place] [phone] 12/11/2024 6:45 EST Treatment [facility] [place] - [place] [address] [place], [place] [phone] Carlota Jin MD [address] [facility], [facility] 2 [place] [phone] 12/13/2024 6:45 EST Treatment [facility] [place] - [place] [address] [place], [place] [phone] Carlota Jin MD 1 [facility], [facility] 2 [place] [phone] 12/15/2024 6:45 EST Treatment [facility] [place] [address] [place] [address] Carlota Jin MD [address] [facility], [facility] 2 [place] [phone] 12/18/2024 6:45 EST Treatment [facility] [place] - [place] [address] [place], [place] [phone] Carlota Jin MD [address] [facility], [facility] 2 [place] [phone] 12/20/2024 6:45 EST Treatment [facility] [place] - [place] [address] [place], [place] [phone] Carlota Jin MD [address] [facility], [facility] 2 [place] [phone] 12/22/2024 6:45 EST Treatment [facility] [place] - [place] [address] [place], [place] [phone] Carlota Jin MD 1 [facility], [facility] 2 [place] [phone] 12/25/2024 6:45 EST Treatment [facility] [place] - [place] [address] [place], [place] [phone] Carlota Jin MD 1 [facility], [facility] 2 [place] [phone] 12/27/2024 6:45 EST Treatment [facility] [address] [place], [place] [phone] Carlota Jin MD [address] [place] [address], [facility] 2 [place] [phone] 12/29/2024 6:45 EST Treatment [facility] [address] [place], [place] [phone] Carlota Jin MD 1 [facility], [facility] 2 [place] [phone] 01/01/2025 6:45 EDT Treatment [facility] [place] [address] [place], [place] [phone] Carlota Jin MD 1 [facility], [facility] 2 [place] [phone] 01/03/2025 6:45 EDT Treatment [facility] [address] [place], [place] [phone] Carlota Jin MD 1 [facility], [facility] 2 [place] [phone] 01/05/2025 6:45 EDT Treatment [facility] - [place] [address] [place], [place] [phone] Carlota Jin MD [address] [facility], [facility] 2 [place] [phone] 01/08/2025 6:45 EDT Treatment [facility] - [place] [address] [place], [place] [phone] Carlota Jin MD 1 [facility], [address] [phone] 01/10/2025 6:45 EDT Treatment [facility] - [place] [address] [place], [place] [phone] Carlota Jin MD 1 [facility], [address] [phone] 01/12/2025 6:45 EDT Treatment [facility] - [place] [address] [place], [place] [phone] Carlota Jin MD 1 [facility], [facility] 2 [place] [phone] 01/15/2025 6:45 EDT Treatment [facility] - [place] [address] [place], [place] [phone] Carlota Jin MD 1 [facility], [facility] 2 [place] [phone] 01/17/2025 6:45 EDT Treatment [facility] - [place] [address] [place], [place] [phone] Carlota Jin MD 1 [facility], [facility] 2 [place] [phone] 01/19/2025 6:45 EDT Treatment [facility] - [place] [address] [place], [place] [phone] Carlota Jin MD 1 [facility], [facility] 2 [place] [phone] 01/22/2025 6:45 EDT Treatment [facility] - [place] [address] [place], [place] [address] Carlota Jin MD 1 [facility], [address] [phone] 01/24/2025 6:45 EDT Treatment [facility] - [place] [address] [place], [place] [phone] Carlota Jin MD 1 [facility], [facility] 2 [place] [phone] 01/26/2025 6:45 EDT Treatment [facility] - [place] [address] [place], [place] [phone] Carlota Jin MD 1 [facility], [facility] 2 [place] [phone] 01/29/2025 6:45 EDT Treatment [facility] - [place] [address] [place], [place] [id number] Carlota Jin MD 1 [facility], [facility] 2 [place] [phone] 01/31/2025 6:45 EDT Treatment [facility] - [place] [address] [place] [address] Carlota Jin MD 1 [facility], [address] [phone] 02/02/2025 6:45 EDT Treatment [facility] - [place] [address] [place], [place] [address] Carlota Jin MD 1 [facility], [address] [phone] 02/05/2025 6:45 EDT Treatment [facility] - [place] [address] [place] [address] Carlota Jin MD 1 [facility], [address] [phone] 02/07/2025 6:45 EDT Treatment [facility] - [place] [address] [place], [place] [phone] Carlota Jin MD [address] [phone] 02/09/2025 6:45 EDT Treatment [facility]ysi - [place] [address] [place], [place] [phone] Carlota Jin MD 1 [facility], [facility] 2 [place] [phone] 02/12/2025 6:45 EDT Treatment [facility] - [place] [address] [place], [place] [phone] Carlota Jin MD 1 [facility], [facility] 2 [place] [phone] 02/14/2025 6:45 EDT Treatment [facility]ys[facility] - [place] [address] [place], [place] [phone] Carlota Jin MD 1 [facility], [address] [phone] 02/16/2025 6:45 EDT Treatment [facility] - [place] [address] [place], [place] [phone] Carlota Jin MD 1 [facility], [address] [phone] 02/19/2025 6:45 EDT Treatment [facility] - [place] [address] [place], [place] [phone] Carlota Jin MD 1 [facility], [address] [phone] 02/21/2025 6:45 EDT Treatment [facility] [place] [address] [place], [place] [phone] Carlota Jin MD 1 [facility], [facility] 2 [place] [phone] documented as of this encounter Visit Diagnoses Not on filedocumented in this encounter Care Teams Porcelain Slusher Relationship Specialty Start Date End Date Adeola Villegas APRN [address] [place] [address] PCP - General 10/12/16 07/06/23 documented as of this encounter
--- OUTSIDE RECORDS SUMMARY | 2024-12-05 12:21 | XMS_ITS | Encounter Summary ---
Author Organization [facility] Address [address] [place] [address] Care Team Providers Care Finance Lead Name Role Phone Ken Greer MD Primary Care Provider [phone] Reason for Referral * Radiology Services (Routine/Next Available) - Authorization Not Required Specialty Diagnoses / Procedures Referred By Nader gardiner Referred To Contact Diagnoses Other specified complication of vascular prosthetic devices, implants and grafts, initial encounter ([facility]) Procedures IR AVF (DIAGNOSTIC/PLASTY) LEFT RI TRLUML BALO ANGIOP CTR DIALYSIS SEG W/IMG S&I Carlota Jin MD Phone: tel: fax: [facility] Referral ID Status Reason Start Date Expiration Date Visits Requested Visits Authorized [id number] Authorization Not Required 07/07/2023 1 1 Reason for Visit * Radiology Services (Routine/Next Available) - Authorization Not Required Specialty Diagnoses / Procedures Referred By Nader gardiner Referred To Contact Diagnoses Other specified complication of vascular prosthetic devices, implants and grafts, initial encounter ([facility]) Procedures IR AVF (DIAGNOSTIC/PLASTY) LEFT RI TRLUML BALO ANGIOP CTR DIALYSIS SEG W/IMG S&I Carlota Jin MD Phone: tel: fax: [facility] Referral ID Status Reason Start Date Expiration Date Visits Requested Visits Authorized [id number] Authorization Not Required 07/07/2023 1 1 Encounter Details Date Type Department Care Team (Late st Contact Info) Description 07/08/2023 8:10 EDT - 07/08/2023 23:59 EDT Hospital Encounter [facility] Interventional Radiology - [address] [id number] Stevan Lake MD [address] [facility] [place], [address] [place] [address] Other specified complication of vascular prosthetic devices, implants and grafts, initial encounter ([facility]) Discharge Disposition: Home or Self Care Social History Tobacco Use Types Packs/Day Years Used Date Smoking Tobacco: Every Day Cigarettes Smokeless Tobacco: Never Tobacco Cessation:Ready to Q [...] Sign Reading Time Taken Comments Blood Pressure 168/82 07/08/2023 1300 EDT Pulse - - Temperature 36.4 ??C (97.5 ??F) 07/08/2023 1300 EDT Respiratory Rate 16 07/08/2023 1300 EDT Oxygen Saturation 91% 07/08/2023 1300 EDT Inhaled Oxygen Concentration - - Weight 86.2 kg (190 lb) 07/08/2023 0839 EDT Height 175.3 cm (5' 9) 07/08/2023 0839 EDT Body Mass Index 28.06 07/08/2023 0839 EDT documented in this encounter Discharge Instructions * Discharge Instructions* Marcela Serra RN - 07/08/2023 11:02 EDT Interventional Radiology Discharge Instructions Following Your Fistulagram About your Procedure A fistulagram is an X-ray procedure to look at the blood flow and check for blood clots or other blockages in your fistula. A well functioning fistula has a bruit (a pulse that you can hear), a thrill (a pulse that can be felt), and good blood flow. Over time, a fistula can age and develop problemssuch as scarring or clots, which can decrease the function of the fistula and the effectiveness of d ialysis. Date: 07/08/2023 Provider: Stevan Lake MD Procedure site: left arm Intervention - Angioplasty (The doctor used a special catheter that has a flat balloon on the tip. This balloon was inflated using sterile saline within the fistula's narrowed veins or arteries to improve blood flow. The balloon was then deflated and removed). Aftercare After sedation: If you have received sedation or pain medication during your procedure, DO NOT DRIVE or make legal decisions today. Activity: Remain quiet today. Do not lift anything over 10 lbs. You may resume normal activity tomorrow. You may resume your normal dialysis schedule. Diet: You may resume your usual diet. Medications: NO Do not hold any medication Please continue all medication as prescribed. Dressing: Stiches-The doctor used stitches to close the puncture site. Your dialysis nurse will remove these at your next dialysis session. Until then, you should keep the area clean and dry. If there is a bandaid or dressing in place, you may remove it in 24 hours or leave it for the dialysis nurse to remove. and Hemostasis pad-The doctor placed a special pad called a hemostasis pad to help the blood clot at your puncture site(s). Remove this pad in 24 hours after your procedure. First, gentlyremove your bandage. Wet the hemostasis pad with water, then gently peel the pad off. Cover your wound site with a bandaid if you would like. Showering: You may shower 24 hours after your procedure. First remove your dressing. Gently wash your wound site with soap and water. If you have stitches, cover them with saran wrap or a water repellent dressing prior to showering. When to contact the [facility] (call visiting nurse first). For severe symtoms call 911: 1. If your hand is more cold or numb than usual. 2. If your puncture site is bleeding and will not stop after holding direct pressure for 10 minutes. 3. If you notice a change in the bruit or thrill of the fistula 4. If you notice swelling or severe bruising of the fistula 5. Symptoms of infection: pain, redness, drainage or swelling at the puncture site or if you develop a fever greater than 101F (38.5C) and/or shaking chills. IF YOU HAVE ANY QUESTIONS OR CONCERNS OR IF YOU HAVE DEVELOPED ANY OF THE SYMPTOMS ABOVE, PLEASE CALL THE INTERVENTIONAL RADIOLOGY CLINIC AT , OPTION 2 TO REACH THE NURSE TRIAGE LINE. THERE WILL BE ASSISTANCE AVAILABLE 24 HOURS A DAY. IF YOU CALL AFTER HOURS YOU WILL BE CONNECTED WITHAN ON-CALL PHYSICIAN BY PRESSING 1. documented in this encounter Medications at Time of Discharge atorvastatin (LIPITOR) 40 mg tablet Take 1 Tablet by mouth daily. calcium carbonate (TUMS) 200 mg calcium (500 mg) tablet,chewable Take 1 Tablet by mouth 3 times daily with meals. carvediloL (COREG) 12.5 mg tablet Take 1 Tablet by mouth 2 times daily. albuterol (ACCUNEB) 0.63 mg/3 mL nebulizer solution Take 3 mL by nebulization every 4 hours as needed for Wheezing. 08/06/20 23 albuterol 90 mcg/actuation inhaler 01/12/2023 09/29/20 23 amLODIPine (NORVASC) 10 mg tablet Take 1 Tablet by mouth daily. 12/24/19 24 BABY ASPIRIN ORAL Take 81 mg by mouth daily. 08/06/20 23 cholecalciferol, Vitamin D3, 25 mcg (1,000 unit) tablet Take 2 Tablets by mouth daily. 180 Tablet 3 12/09/2022 09/29/20 23 famotidine (PEPCID) 40 mg tablet Take 1 Tablet by mouth daily. 02/28/20 24 FLOVENT HFA 110 mcg/actuation inhaler Inhale 1 Puff as directed. 03/08/2023 02/28/20 24 hydroCHLOROthiazid e (HYDRODIURIL) 25 mg tablet Stop per Dr[address] Jin. 03/16/2023 08/06/20 hydrOXYzine (ATARAX) 25 mg tablet Take 1 Tablet by mouth at bedtime. 09/29/20 LEVEMIR FLEXPEN 100 unit/mL (3 mL) injectable pen Inject 30 Units into the skin at bedtime. 01/19/2023 12/24/19 magnesium oxide (MAG-OX) 400 mg (241.3 mg magnesium) tablet Take 1 Tablet by mouth daily. 08/06/20 MULTIVITAMIN ORAL Take by mouth. 11/13 nortriptyline (PAMELOR) 25 mg capsule Take 1 Capsule by mouth at bedtime. 08/06/20 pregabalin (LYRICA) 100 mg capsule Take 1 Capsule by mouth 2 times daily. 08/06/20 sevelamer carbonate (RENVELA) 800 mg tablet 07/02/2023 08/06/20 sevelamer hydrochloride (RENAGEL) 800 mg tablet Take 2 Tablets by mouth 3 times daily. 540 Tablet 3 12/02/2022 09/29/20 documented as of this encounter Discharge Disposition Disposition Code Departure Means Destination Home or Self Care documented in this encounter Progress Notes * Hilaria Torres, VIDYA - 07/08/2023 09 EDT Calvin Nieto In this message, I am including important preparation details for your upcoming Jul 08, 900 AV fistulogram Called and spoke with patient 07/07 23 -Please arrive and check in at the [facility] (this is the 3rd floor/main entrance) registration by [phone], even if you have already pre-registered. Estimated length of time at the hospital: (including prep, procedure and recovery) 4hr ??? If there is a delay in the start of your procedure it is usually because we need to treat otherpeople with unexpected and urgent problems. Thank you for your patience if this occurs COVID-19 UPDATES: Please call our office if you become sick or experience any Covid-19 symptoms prior to this appointment. Symptoms may include fever, cough, sore throat, loss of taste or smell or difficulty breathing. You will also be screened for symptoms on the day of the procedure upon arrival to the hospital. Visitor Policy: ??? 2 support people are permitted to come to the appointment with you. Masks ??? Your discretion to choose to wear a mask. If you or your visitors have symptoms fever,cough,sore throat you should wear a mask -Most of our procedures utilize some form of sedation. Let us know right away if : ??? You cannot lie flat for about 1 hour because of back or breathing problems ??? You have a hard time lying still during medical procedures ??? You have only ever had General Anesthesia for Procedures During the Procedure You will receive Conscious Sedation which is a combination of medicines to help your during your procedure ??? An aesthetic to block pain ??? A Sedative to help your relax ??? A Narcotic for pain ??? Having a company driver to take you home is required. A bus or taxi is not allowed. It is preferable tohave your company driver accompany you to the appointment. If this is not possible, please bring your drivers contact information with you to the appointment. They need to be accessible by phone, please notethe parking garage does not have consistent cell phone coverage. Instructions for Eating/Drinking: -do not consume solid foods or liquids containing fats (including milk) after midnight before the procedure. -Until 2 hours before your scheduled arrival time to the hospital you may have water, apple juice and clear sports drinks (Gatorade for example). Please note, these are the only permitted liquids. -After 0700, only small sips of water are allowed to take medications Diabetic Management for Day of procedures is based on Protocol from endocrinology Holly instead of 60 units take 48 units if our guidance /protocol does not work for you feel free to contact your septic cleaner. -Medications - Continue to take prescribed medications (unless listed below) Please bring in a list of medications and be prepared to state when you last took them If you are on prescribed pain medication, take as needed Medications to hold: none -Do not take Ibuprofen ( Motrin, Advil) for 24 hours prior to the procedure. -Do not take Naproxen ( Aleve) for 2 days before the procedure. -Full strength (325mg) Aspirin should not be taken for 5 days prior to this procedure. If you are on a baby Aspirin , this is okay to continue. -Tylenol (acetaminophen) may be taken for pain. - Bring a list of your current medications/allergy list. You medication list will be reviewed with you before the procedure including last time you took each medication. -if you use a CPAP, please bring your machine to the appointment with you -Shower night before or the morning of procedure -We recommend you leave valuables and jewelry at home for safe keeping. Please do not bring any medications in with you. If you have questions regarding this appointment or wish to speak with our team directly, you may call [phone] (Wednesday- Wednesday 9-4:30 PM) * Marcela Serra RN - 07/08/2023 0900 EDT Labs, Medication, allergies, Pt history reviewed. Pt greeted in CVU ID'd by name, and viewed name Bracelet. Pt in room time - 1114 . Assessed IV. As the nurse in the room I reviewed the procedure and sedation with Gerson. Pt acknowledges his questions have been answered and verbalizes understanding of procedure, conscious sedation. . Consent for the procedure and sedation reviewed. ASA 2 Pt positioned supine on the angio 24 table. padding under elbows, Safety straps in place. Pre-procedure ultrasound of fistula/left upper arm by VS assessed. Administration of conscious sedation began at 1127 . Sterile prep of left arm/axilla/shoulder with duraprep by JRM in the usual sterile fashion and in compliance with solicitor patent recommendation. Burgos moment at start of procedure fistulagram with possible intervention At 1127 between ADB, SA,AMELIA, ELDRIDGE . At start of the procedure the patient is awake Ultrasound guided fistula access, fluoro guided fistulagram with balloon angioplasty of cephalic vein outflow with 8x40 balloon, catheter removed and dressing placed on site Defer to Physicians note for procedure outcomes Medications administered during the procedure, in divided doses, Versed 1.5 Mg Fentanyl 50 Mcg IV. Sedation time for procedure 33 minutes Pt tolerated procedure well, report called to [facility], transported back to CVU on stretcher.. Discharge instructions entered in [employer] documented in this encounter H&P Notes * Stevan Lake MD - 07/08/2023 0900 EDT Sedation for Procedure History & Physical Date: 07/08/2023 Time: 9:02 Location: IR Planned Procedure: fistulagram/COORDINATE MEASURING EQUIPMENT OPERATOR Chief Complaint/Indications for Procedure: high venous pressures History: Previous Complication with Sedation and/or Anesthesia? No Allergies: Allergies Allergen Reactions ??? Clindamycin ??? Gabapentin ??? Penicillins ??? Pregabalin Other reaction(s): Unsure ??? Sertraline Other reaction(s): Unsure Current Medications: (Not in a hospital admission) Past Medical History: Past Medical History: Diagnosis Date ??? Asthma Mild ??? Diabetes mellitus (HCC-CMS) DM2 ??? Hyperlipidemia ??? Hypertension ??? Stage 3 chronic kidney disease (HCC) (HCC-CMS) ??? Unsteady gait when walking Social History: Past Surgical History: Procedure Laterality Date ??? APPENDECTOMY ??? BACK SURGERY ??? CHOLECYSTECTOMY ??? DIALYSIS FISTULA CREATION Left ??? SHOULDER SURGERY Social History Tobacco Use ??? Smoking status: Every Day Packs/day: .5 Types: Cigarettes ??? Smokeless tobacco: Never Substance Use Topics ??? Alcohol use: Yes Comment: Socially Family History: Family History Problem Relation Age of Onset ??? Hypertension Maternal Grandmother ??? Hypertension Maternal Grandfather ??? Glaucoma Neg Hx ??? Cataract Neg Hx ??? Macular Degeneration Neg Hx ??? Retinal Detachment Neg Hx Review of Systems as pertinent: Physical: Vital Signs: BP (!) 161/78 (BP Cuff Location: Right arm, BP Patient Position: Semi fowlers) Temp 36.4 ??C (97.5 ??F) (Temporal) Resp 18 Ht 175.3 cm (69) Wt 86.2 kg (190 lb) SpO2 97% BMI 28.06 kg/m?? Heart Examination: Cardiac Regularity: Regular Respiratory Examination: Respiratory Pattern: Regular Breath Sounds Right: Clear Breath Sounds Left: Clear Additional physical exam related to the proposed procedure, patient activity, disease state and treatment as pertinent: Assessment: Previous complications with sedation or anesthesia?: No Airway Concerns: Asthma (mild asthma) Anesthesia Classification: ASA 2 Plan: Fistulagram/COORDINATE MEASURING EQUIPMENT OPERATOR Fasting Time: Time of last liquid intake: 0600 Date of Last Liquid Intake: 07/08/23 Time of last solid intake: 1800 Date of last solid intake: 07/07/23 Patient Appropriate Candidate for Planned Sedation?: Yes Stevan Lake MD 07/08/2023 9:02 documented in this encounter Procedure Notes * Stevan Lake MD - 07/08/2023 0900 EDT IR Procedure Note Procedure: Fistulagram/COORDINATE MEASURING EQUIPMENT OPERATOR Date Performed: 07/08/2023 Radiologist/Machine Chain Maker(s): Jaya Sedation/Anesthesia: Versed, fentanyl Time Out: A time-out was completed prior to procedure verifying correct patient, procedure, site, positioning, and special equipment if applicable. Estimated Blood Loss: Unless otherwise noted, there was no blood loss, specimens removed, cultures obtained, or drains retained. Specimens: none Fluoroscopy Time: 2.8 min Contrast Volume: 50 cc omni 200 Complications: none Condition: stable Post Procedure Diagnosis: High venous pressures Findings: Outflow stenosis improved after 8 mm COORDINATE MEASURING EQUIPMENT OPERATOR Recommendations: Per orders Stevan Lake MD 07/08/2023 12:07 documented in this encounter Plan of Treatment Upcoming Encounters Date Type Department Care Team (Late st Contact Info) Description 12/06/2024 6:45 EST Treatment [facility] [address] [place] [id number] Carlota Jin MD [address] [place] [address], [facility] [address] [place] [phone] 12/08/2024 6:45 EST Treatment [facility] [address] [place] [id number] Carlota Jin MD [address] [place] [address], [facility] [address] [place] [phone] 12/11/2024 6:45 EST Treatment [facility] [address] [place], [place] [id number] Carlota Jin MD 1 [facility], [facility] [address] [place] [phone] 12/13/2024 6:45 EST Treatment [facility] [place] [address] [place] [address] Carlota Jin MD 1 [facility], [address] [phone] 12/15/2024 6:45 EST Treatment [facility] [place] [address] [place], [place] [id number] Carlota Jin MD 1 [facility], [address] [phone] 12/18/2024 6:45 EST Treatment [facility] [place] [address] [place] [address] Carlota Jin MD 1 [facility], [address] [phone] 12/20/2024 6:45 EST Treatment [facility] [address] [place], [place] [id number] Carlota Jin MD [address] [phone] 12/22/2024 6:45 EST Treatment [facility] [place] [address] [place], [place] [id number] Carlota Jin MD 1 [facility], [facility] [address] [place] [phone] 12/25/2024 6:45 EST Treatment [facility] [place] [address] [place], [place] [id number] Carlota Jin MD 1 [facility], [facility] [address] [place] [phone] 12/27/2024 6:45 EST Treatment [facility] [place] [address] [place], [place] [id number] Carlota Jin MD 1 [facility], [facility] [address] [place] [phone] 12/29/2024 6:45 EST Treatment [facility] [place] [address] [place] [address] Carlota Jin MD 1 [facility], [facility] [address] [place] [phone] 01/01/2025 6:45 EDT Treatment [facility] [place] [address] [place], [place] [id number] Carlota Jin MD 1 [facility], [facility] [address] [place] [phone] 01/03/2025 6:45 EDT Treatment [facility] [place] [address] [place], [place] [id number] Carlota Jin MD 1 [facility], [facility] [address] [place] [phone] 01/05/2025 6:45 EDT Treatment [facility] [place] [address] [place], [place] [id number] Carlota Jin MD 1 [facility], [facility] [address] [place] [phone] 01/08/2025 6:45 EDT Treatment [facility] [place] [address] [place], [place] [id number] Carlota Jin MD 1 [facility], [facility] [address] [place] [phone] 01/10/2025 6:45 EDT Treatment [facility] [place] [address] [place], [place] [id number] Carlota Jin MD 1 [facility], [address] [phone] 01/12/2025 6:45 EDT Treatment [facility] [place] [address] [place], [place] [id number] Carlota Jin MD [address] [phone] 01/15/2025 6:45 EDT Treatment [facility] [place] [address] [place], [place] [id number] Carlota Jin MD [address] [phone] 01/17/2025 6:45 EDT Treatment [facility] [place] [address] [place], [place] [id number] Carlota Jin MD 1 [facility] 2 [place] [phone] 01/19/2025 6:45 EDT Treatment [facility] [place] [address] [place], [place] [id number] Carlota Jin MD [facility] [address] [place] [phone] 01/22/2025 6:45 EDT Treatment [facility] [place] [address] [place], [place] [id number] Carlota Jin MD 1 [facility] [address] [place] [phone] 01/24/2025 6:45 EDT Treatment [facility] [place] [address] [place], [place] [id number] Carlota Jin MD 1 [facility] [address] [place] [phone] 01/26/2025 6:45 EDT Treatment [facility] [place] [address] [place] [address] Carlota Jin MD 1 [facility] [address] [place] [phone] 01/29/2025 6:45 EDT Treatment [facility] [place] [address] [place], [place] [id number] Carlota Jin MD 1 [facility] [address] [place] [phone] 01/31/2025 6:45 EDT Treatment [facility] [place] [address] [place], [place] [id number] Carlota Jin MD 1 [facility], [facility] [address] [place] [phone] 02/02/2025 6:45 EDT Treatment [facility] [place] [address] [place], [place] [id number] Carlota Jin MD [address] [place] [address], [address] [phone] 02/05/2025 6:45 EDT Treatment [facility] [place] [address] [place], [place] [id number] Carlota Jin MD [address] [place] [address], [address] [phone] 02/07/2025 6:45 EDT Treatment [facility] [place] [address] [place], [place] [id number] Carlota Jin MD [address] [place] [address], [facility] [address] [place] [phone] 02/09/2025 6:45 EDT Treatment [facility] [place] [address] [place], [place] [id number] Carlota Jin MD 1 [facility], [facility] [address] [place] [phone] 02/12/2025 6:45 EDT Treatment [facility] [place] [address] [place], [place] [id number] Carlota Jin MD 1 [facility], [facility] [address] [place] [phone] 02/14/2025 6:45 EDT Treatment [facility] [place] [address] [place], [place] [id number] Carlota Jin MD 1 [facility], [facility] [address] [place] [phone] 02/16/2025 6:45 EDT Treatment [facility] [place] [address] [place], [place] [id number] Carlota Jin MD 1 [facility], [address] [phone] 02/19/2025 6:45 EDT Treatment [facility] [place] [address] [place], [place] [id number] Carlota Jin MD 1 [facility], [address] [phone] 02/21/2025 6:45 EDT Treatment [facility] [place] [address] [place], [place] [id number] Carlota Jin MD 1 [facility], [address] [phone] documented as of this encounter Procedures Procedure Name Priority Date/Time Associated Diagnosis Comments IR AVF (DIAGNOSTIC/PLASTY) LEFT Routine 07/08/2023 11:40 EDT Other specified complication of vascular prosthetic devices, implants and grafts, initial encounter ([facility]) POCT GLUCOSE, INTERFACED Routine 07/08/2023 9:07 EDT POTASSIUM Routine 07/08/2023 9:06 EDT documented in this encounter Results * IR AVF (DIAGNOSTIC/PLASTY) LEFT (07/08/2023 11:40 EDT) Anatomical Region Laterality Modality Left X-Ray Angiograph y 07/09/2023 9:46 EDT Impressions 07/09/2023 9:46 EDT 1. Left upper extremity fistulogram demonstrating high-grade multifocal stenosis of the central outflow cephalic vein. 2. Improved lumen and flow after 8 mm angioplasty of the stenotic segment. [id number] Narrative 07/09/2023 9:46 EDT EXAMINATION: Fistulogram and angioplasty. July 08, 2023. CLINICAL HISTORY: Left upper extremity fistula with left arm swelling and elevated venous pressures during dialysis. PROCEDURE: Informed consent was obtained after the risks and benefits of the procedure were discussed with the patient. Conscious sedation was provided with intravenous Versed and fentanyl while continuously monitoring the patient's blood pressure, heart rate, respiratory rate and pulse oxygenation. The patient's left upper arm was sterilely prepped and draped. Ultrasound examination showed the left fistula arteriovenous anastomosis to be widely patent in the arterial end of the fistula to be widely patent. The fistula was accessed using real-time ultrasound guidance with local anesthesia at the arterial end of the fistula and directed toward the venous outflow. A permanent recording of the ultrasound guidance was placed in the patient's record. The access needle was exchanged over a guidewire for a micropuncture sheath. Subsequent fistulogram was performed with imaging to the central veins. The micropuncture sheath was exchanged over a guidewire for a 6 Welsh bright tip sheath. A catheter guidewire combination were then used to negotiate the central cephalic vein stenosis and the guidewire was placed centrally. A 8 mm balloon was then advanced over the guidewire and used to angioplasty the outflow stenosis. Post angioplasty fistulogram demonstrated improved lumen and flow with mild residual stenosis. The 10 mm balloon was then used to perform additional high-pressure angioplasty of the same site. Repeat fistulogram showed improved lumen and flow with no residual stenosis. The guidewire and sheath were then removed and local hemostasis achieved with silk pursestring sutures and a hemostatic patch followed by application of a sterile dressing. FINDINGS: Fistulogram demonstrates high-grade multifocal stenosis of the central cephalic vein outflow. There is no central stenosis. The remainder of the fistula appears widely patent. After angioplasty as described above. The area of stenosis is widely patent with no residual stenosis. The previously seen neck collaterals bypassing the area of stenosis were no longer filling in an antegrade manner after angioplasty. Procedure Note Stevan Lake MD - 07/09/2023 EXAMINATION: Fistulogram and angioplasty. July 08, 2023. CLINICAL HISTORY: Left upper extremity fistula with left arm swelling andelevated venous pressures during dialysis. PROCEDURE: Informed consent was obtained after the risks and benefits of theprocedure were discussed with the patient. Conscious sedation was providedwith intravenous Versed and fentanyl while continuously monitoring thepatient's blood pressure, heart rate, respiratory rate and pulseoxygenation. The patient's left upper arm was sterilely prepped and draped. Ultrasoundexamination showed the left fistula arteriovenous anastomosis to be widelypatent in the arterial end of the fistula to be widely patent. The fistulawas accessed using real-time ultrasound guidance with local anesthesia atthe arterial end of the fistula and directed toward the venous outflow. Apermanent recording of the ultrasound guidance was placed in the patient'srecord. The access needle was exchanged over a guidewire for amicropuncture sheath. Subsequent fistulogram was performed with imaging tothe central veins. The micropuncture sheath was exchanged over a guidewirefor a 6 Welsh bright tip sheath. A catheter guidewire combination werethen used to negotiate the central cephalic vein stenosis and theguidewire was placed centrally. A 8 mm balloon was then advanced over theguidewire and used to angioplasty the outflow stenosis. Post angioplastyfistulogram demonstrated improved lumen and flow with mild residual stenosis. The 10 mm balloon was then used to performadditional high-pressure angioplasty of the same site. Repeat fistulogramshowed improved lumen and flow with no residual stenosis. The guidewireand sheath were then removed and local hemostasis achieved with silkpursestring sutures and a hemostatic patch followed by application of asterile dressing. FINDINGS: Fistulogram demonstrates high-grade multifocal stenosis of the centralcephalic vein outflow. There is no central stenosis. The remainder of thefistula appears widely patent. After angioplasty as described above. Thearea of stenosis is widely patent with no residual stenosis. Thepreviously seen neck collaterals bypassing the area of stenosis were nolonger filling in an antegrade manner after angioplasty. IMPRESSION 1. Left upper extremity fistulogram demonstrating high-grade multifocalstenosis of the central outflow cephalic vein. 2. Improved lumen and flow after 8 mm angioplasty of the stenoticsegment. [id number] Carlota Jin MD IMG IR ORDERABLES Final R esult * (ABNORMAL) POCT GLUCOSE, INTERFACED (07/08/2023 9:07 EDT) Glucose, POC 181(H) 70 - 100 mg/dL 07/08/2023 9:08 EDT [facility] HN LAB POC COMMENT (GLUCOSE) Test Performed by Nursing Services 07/08/2023 9:08 EDT [facility] Blood CAPILLARY BLOOD / Unknown 07/08/2023 9:07 EDT 07/08/2023 9:08 EDT Stevan Lake MD POINT OF CARE TEST ORDERABLES F inal Result [facility] [address] [place] [address] * POTASSIUM (07/08/2023 9:06 EDT) Potassium 4.9 3.5 - 5.0 mmol/L 07/08/2023 9:26 EDT [facility] Blood VENOUS BLOOD / Unknown Venipuncture / Unknown 07/08/2023 9:06 EDT 07/08/2023 9:11 EDT Stevan Lake MD CHEMISTRY & BLOOD GAS ORDERABLE S Final Result Performing Organization Address City/[facility]/ZIP Co de Phone Number [facility] [address] [place] [address] documented in this encounter Visit Diagnoses Diagnosis Other specified complication of vascular prosthetic devices, implants and grafts, initial encounter ([facility]) documented in this encounter Administered Medications Inactive Administered Medications - up to 3 most recent administrations Medication Order MAR Action Action Date Dose Rate Site acetaminophen (TYLENOL) tablet 650 mg 650 mg, oral, EVERY 4 HOURS PRN, Starting on Viridiana 07/08/23 at 1232, Until 07/10/23 at 0214, Pain, Routine Given 07/08/2023 12:50 EDT 650 mg fentaNYL citrate (PF) injection 25-250 mcg 25-250 mcg, intravenous, ONCE PRN, 1 dose, Starting on Viridiana 07/08/23 at 1153, Until Viridiana 07/08/23 at 1154, Other, Per Admin Instructions ONLY, Routine, Intraprocedure Given 07/08/2023 11:54 EDT 50 mcg iohexoL (OMNIPAQUE 300) injection 150 mL 150 mL, intravenous, NOW X1, 1 dose, On Viridiana 07/08/23 at 1245, Routine Given 07/08/2023 12:18 EDT 50 mL midazolam (VERSED) injection 0.5-10 mg 0.5-10 mg, intravenous, ONCE PRN, 1 dose, Starting on Viridiana 07/08/23 at 1153, Until Viridiana 07/08/23 at 1154, Other, Per Admin Instructions ONLY, Routine, Intraprocedure Given 07/08/2023 11:54 EDT 1.5 mg sodium chloride 0.9 % (NS) infusion 50 mL/hr, intravenous, CONTINUOUS, Starting on Viridiana 07/08/23 at 0845, Until 07/10/23 at 0214, Routine, Preprocedure New Bag 07/08/2023 9:03 EDT 50 mL/hr 50 mL/hr documented in this encounter Orders Medications Ordered That Davide ht Not Have Been Administered Count Last Ordered Date First Ordered Date acetaminophen (TYLENOL) suppository 650 mg 1 07/08/2023 flumazenil (ROMAZICON) injection 0.2 mg 1 0 07/08/2023 lidocaine (PF) 10 mg/mL (1 % ) injection 2 mg 1 07/08/2023 naloxone (NARCAN) injection 0.4 mg 1 2022 Discharge Count Last Ordered Date First Orde red Date DISCHARGE PATIENT 1 07/08/2023 documented in this encounter Care Teams Finance Lead Relationship Specialty Start Date End Date Ken Greer MD [address] [place] [address] PCP - General 07/07/23 documented as of this encounter
--- OUTSIDE RECORDS SUMMARY | 2024-12-05 12:21 | XMS_ITS | Encounter Summary ---
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 Role Phone Adeola Villegas APRN Primary Care Provider [phone] Encounter Details Date Type Department Care Team (Latest Contact Info) Description 07/05/2023 6:45 EDT Treatment [facility] [address] [place] [address] Carlota Jin MD 1 [facility], [address] [place] [address] ESRD (end stage renal disease) ([facility]) (Primary Dx); Anemia of chronic renal failure, unspecified CKD stage; Hypoalbuminemia; Secondary hyperparathyroidism ([facility]) Social History Tobacco Use Types Packs/Day [...] - Temperature - - Respiratory Rate 18 07/05/2023 0628 EDT Oxygen Saturation - - Inhaled Oxygen Concentration - - Weight 88.9 kg (195 lb 15.8 oz) 07/05/2023 0628 EDT Height - - Body Mass Index 28.53 01/25/2023 0751 EDT documented in this encounter Miscellaneous Notes * Flowsheet Note - Marcela Cox RN - 07/05/2023 1338 EDT 07/05/23 1211 Post-Hemodialysis Assessment Total Blood Processed (L) 65.38 Liters On Line Clearance: spKt/V 1.47 spKt/V Dialyzer Clearance Lightly streaked Treatment UFR (ml:kg:hr) 0 ml:kg:hr Critline refill Not done Fluid Removed (L) 1.73 L Post-Dialysis Scale Weight 86.7 kg (191 lb 2.2 oz) Wheelchair Weight 0 kg (0 lb) Prosthesis Weight 0 kg (0 lb) Post-Treatment Weight (kg) 86.7 Treatment Weight Change (kg) (!) 42 kg Day Target Weight (kg) 87 Post Sitting/Lying BP (!) 174/95 Post Sitting/Lying pulse 77 Post Standing BP 147/73 Post Standing Pulse 83 Temp 36.6 ??C (97.9 ??F) Temp src Temporal Post access assessment AVF/AFG Hemostasis achieved Yes Note 10 min hold Orientation Alert and Oriented x3 Yes Time Yes Place Yes Person Yes Cooperative Yes Disoriented No Discharge Ambulation Methods Ambulatory without assistance Wrap up items Patient Response to Treatment Tolerated tx well. Removed 2.2L out of original 2.4L UF goal without difficulty. Goal cut back d/t cramping, which resolved with reduction in goal. Comments No issues during tx, no concerns voiced post tx. * Dialysis Comprehensive - Carlota Jin MD - 07/05/2023 0645 EDT Images from the original note were not included. Dialysis Provider's Monthly Comprehensive Assessment Dialysis Unit: [facility] ESRD Etiology: Type 2 diabetes mellitus with diabetic chronic kidney disease (HCC-CMS) Patient Active Problem List Diagnosis ??? 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 ESRD (end stage renal disease) (HCC-CMS) ([facility]) ??? Essential (primary) hypertension ??? Hearing loss [...] with Nursing: Yes Average Interdialytic Fluid Gains: 06/30/2023 6:37 06/30/2023 10:50 07/02/2023 6:23 07/02/2023 6:29 07/02/2023 10:42 07/05/2023 6:28 07/05/2023 6:45 InterDialytic +/- Gain/Loss -0.2 2.5 2.5 2.4 42.2 Wt (pre) 87.5 89 89 88.9 128.7 Wt (post) 86.5 86.5 Treatment UFR (ml:kg:hr) 2.89 ml:kg:hr 7.14 ml:kg:hr BP (pre) 137/75 170/83 170/83 165/85 159/74 BP (post) 193/101 213/106 213/106 198/104 142/100 Pulse (pre) 74 84 84 88 78 Pulse(post) 75 82 82 83 75 Resp (/min) 18 18 18 Volume and blood pressure have been addressed with the following changes: None Consistently able to achieve estimated dry weight? Yes Blood pressure is in range for patient? Yes Any adverse intradialytic symptoms? Yes: some cramping Plan: Managed per protocol Physical Exam Constitutional No distress Respiratory: Unlabored breathing Cardiac: deferred Abdomen: deferred Extremities: Trace b/l LE edema; LUE with edema distal to AVF Hospitalization Hospitalization in Previous 3 Months: No Emergency Room Visit in Previous 3 Months: Yes: for swelling of his LUE distal to fistula; he did not end up being seen Access Management Current LDAs: Hemodialysis Arteriovenous Access 02/13/19 (Active) AV Fistula Present 07/05/23643 Site Assessment Clean;Dry;Intact;Bruit heard;Thrill felt 07/05/23643 Current State Active 07/05/23643 Status Accessed 07/05/23643 Is Maturing N 07/05/23643 Local Anesthetic None 07/05/23643 Site Prep Chlorhexidine 07/05/23643 Venous Needle Size 15 G 07/05/23643 Arterial/Generic Needle Size 15 G 07/05/23643 Accessed by: Sandra 07/05/23643 Access Attempts 1 07/05/23643 Dressing Status/Care Clean/Dry/Intact 07/05/23643 Patient has AVF/AVG as primary access: Yes Patient has Catheter as primary access >90 days: No Home Medication Review/Update Current Outpatient Medications: ??? albuterol (ACCUNEB) 0.63 mg/3 mL nebulizer solution, Take 3 mL by nebulization every 4 hours asneeded for Wheezing., Disp: , Rfl: ??? albuterol 90 mcg/actuation [...] Puff as directed., Disp: , Rfl: ??? hydroCHLOROthiazide (HYDRODIURIL) 25 mg tablet, Stop per Dr. Jin., Disp: , Rfl: ??? hydrOXYzine (ATARAX) 25 mg tablet, Take 1 Tablet by mouth at bedtime., Disp: , Rfl: ??? LEVEMIR FLEXPEN 100 unit/mL (3 mL) injectable pen, , Disp: , Rfl: ??? magnesium oxide (MAG-OX) 400 mg (241.3 mg magnesium) tablet, Take 1 Tablet by mouth daily., Disp: , Rfl: ??? MULTIVITAMIN ORAL, Take [...] Hemodialysis 3 times a week Week of 07/04/2023 Routine, ONE TIME Starting when released Prescribed [...] - UF Profile: None Dialysis Last released: Wed07/05/2023 Oxygen Therapy (Age 3 yrs. to Adult) [...] of treatment. To be administered per Policy [id number]. Last released: Wed07/05/2023 sodium chloride 0.9 % BOLUS 100 mL PRN PRN 100 mL, intravenous, PRN Starting when released Until Discontinued, Other, hypotension or cramping,Dialysis Last released: Never Dialysis Weekly Labs Complete Blood Count Weekly: Wed07/07/2023 Routine, ONE TIME Starting when released, Blood, Venous, Blood Results Release to Patient (Note: Choosing Manual Release will only block results from tests performed at [facility] and does not apply for Miscellaneous Test Order): Immediate via MyChart Portal Dialysis Last released: Wed06/30/2023 Dialysis Monthly Labs Dialysis Iron (Includes Iron, IBC, and Ferritin) - Nephrology Use Only On the Mon of every 1 month Wed07/26/2023 Routine, ONE TIME Starting when released, Blood, Venous, Blood Results Release to Patient (Note: Choosing Manual Release will only block results from tests performed at [facility] and does not apply for Miscellaneous Test Order): Immediate via MyChart Portal Dialysis Last released: Wed06/28/2023 Dialysis Routine- Dialysis Use Only On the Mon of every 1 month Wed07/26/2023 Routine, ONE TIME Starting when released, Blood, Blood, Venous Results Release to Patient (Note: Choosing Manual Release will only block results from tests performed at [facility] and does not apply for Miscellaneous Test Order): Immediate via [employer] Portal Dialysis Last released: Wed06/28/2023 Postdialysis BUN with URR Calculation On the Mon of every 1 month [facility] 07/26/2023 Routine, ONE TIME Starting when released, Blood, Blood, Venous Results Release to Patient (Note: Choosing Manual Release will only block results from tests performed at [facility] and does not apply for Miscellaneous Test Order): Immediate via [employer] Portal Dialysis Last released: Wed06/28/2023 Dialysis Quarterly Labs PTH Intact On the Mon of every 3 months Wed07/26/2023 Routine, ONE TIME Starting when released, Blood, Venous, Blood Results Release to Patient (Note: Choosing Manual Release will only block results from tests performed at [facility] and does not apply for Miscellaneous Test Order): Immediate via [employer] Portal Dialysis Last released: Wed04/26/2023 Dialysis Annual Labs - October Dialysis Hepatitis- [...] from tests performed at [facility] and does not apply for Miscellaneous Test Order): Immediate via MyChart Portal Dialysis Last released: Never Vitamin D (25,OH) On the Wed of every 12 months Wed10/25/2023 Routine, ONE TIME Starting when released, Blood, Venous, Blood Results Release to Patient (Note: Choosing Manual Release will only block results from tests performed at [facility] and does not apply for Miscellaneous Test [...] from tests performed at [facility] and does not apply for Miscellaneous Test Order): Immediate via MyChart Portal Dialysis Last released: Wed04/26/2023 HEMODIALYSIS [facility] Medications epoetin ken (EPOGEN) 20,000 unit/2 mL injection 500 Units 3 times a week Week of 07/04/2023 500 Units, intravenous, ONCE IN DIALYSIS Starting when released, Dialysis Last released: Wed07/05/2023 HEMODIALYSIS NUTRITIONAL SUPPLEMENTS Nutritional Supplements LiquaCel liquid protein liquid 30 mL Every visit Every visit 30 mL, oral, ONCE IN DIALYSIS Starting when released Last released: Wed07/05/2023 HEMODIALYSIS CKD MBD [facility] Medications calcium carbonate (TUMS) tablet 500 mg (200 mg elemental calcium) 2 Tablet Every visit Every visit 2 Tablet, oral, ONCE IN DIALYSIS Starting when released, Dialysis Last released: Wed07/05/2023 Adjustment made to dialysis medication: No Laboratory Results Dialysis Adequacy: spKt/V: 1.38 (Calculated from:; BUN Pre-Dialysis: 59 mg/dL at 07/02/2023 10:48; BUN Post-Dialysis: 18mg/dL at 07/02/2023 10:48; Pre-Treatment Weight (kg): 89 at 07/02/2023 6:29; Post-Treatment Weight (kg): 86.5 at 07/02/2023 10:42; Duration of Treatment (minutes): 243 minutes at 07/02/2023 10:42) Plan: Continue current dialysis prescription Anemia Management: Lab Results Component Value Date WBC 7.81 06/30/2023 HGB 10.3 (L) 06/30/2023 HGB 10.8 (L) 06/23/2023 HGB 10.7 (L) 06/16/2023 PLT 236 06/30/2023 FOLATE 17.3 11/16/2022 [id number] 11/16/2022 FERRITIN 774 (H) 06/28/2023 Current GEORGE/Dose: HEMODIALYSIS [facility] epoetin ken (EPOGEN) 20,000 unit/2 mL injection 500 Units 500 Units, intravenous, 3 times a week, ONCE [...] Management: Lab Results Component Value Date K 6.8 (H) 06/28/2023 Prescribed Potassium Concentrate: HEMODIALYSIS Ordered at: 07/05/23627 Dialysate concentrate: Potassium 2 mEq/L Calcium 2.5 mEq/L 07/05/2023 6:28 Last Dialysis Prescription released on: Selected bath: Potassium 2 mEq/L Calcium 2.5 mEq/L sevelamer hydrochloride - 800 mg Plan: Managed per protocol Nutrition: Lab Results Component Value Date LABALBU 3.5 06/28/2023 NA 131 (L) 06/28/2023 Protein Supplements: This patient does not have an active medication from one of the medication groupers. Plan: Managed per protocol Comments: Currently with edema and pain of his LUE distal to fistula. He did try to go to the ED to get an USbut there was some confusion surrounding that visit so it was not done. He is thinking of going back today but he is not sure if he wants to given how bad his last visit to the ED went. I did explainthe importance of the US and offered to order an US at [facility] or [facility] so that he could have an act ual appointment, but he refused. He continues to have issues surrounding dietary and medication adherence. Will continue to educate and encourage. Carlota Jin MD documented in this encounter Plan of Treatment Upcoming Encounters Date Type Department Care Team (Late st Contact Info) Description 12/06/2024 6:45 EST Treatment [facility] [address] [place], [place] [phone] Carlota Jin MD [address] [phone] 12/08/2024 6:45 EST Treatment [facility] [address] [place], [place] [phone] Carlota Jin MD [address] [place] [phone] 12/11/2024 6:45 EST Treatment [facility] [address] [place], [place] [phone] Carlota Jin MD [address] [place] [phone] 12/13/2024 6:45 EST Treatment [facility] [address] [place], [place] [phone] Carlota Jin MD 1 [facility] 2 [place] [phone] 12/15/2024 6:45 EST Treatment [facility] [place] [address] [place], [place] [phone] Carlota Jin MD 1 [facility] 2 [place] [phone] 12/18/2024 6:45 EST Treatment [facility] [address] [place], [place] [phone] Carlota Jin MD 1 [facility] 2 [place] [phone] 12/20/2024 6:45 EST Treatment [facility] [address] [place], [place] [phone] Carlota Jin MD 1 [facility], [facility] 2 [place] [phone] 12/22/2024 6:45 EST Treatment [facility] [address] [place] [address] Carlota Jin MD 1 [facility], [facility] 2 [place] [phone] 12/25/2024 6:45 EST Treatment [facility] [address] [place], [place] [phone] Carlota Jin MD 1 [facility], [facility] 2 [place] [phone] 12/27/2024 6:45 EST Treatment [facility] [place] [address] [place], [place] [phone] Carlota Jin MD 1 [facility], [facility] 2 [place] [phone] 12/29/2024 6:45 EST Treatment [facility] [address] [place], [place] [phone] Carlota Jin MD 1 [facility], [facility] 2 [place] [phone] 01/01/2025 6:45 EDT Treatment [facility] [place] [address] [place], [place] [phone] Carlota Jin MD 1 [facility], [facility] 2 [place] [phone] 01/03/2025 6:45 EDT Treatment [facility] [place] [address] [place], [place] [phone] Carlota Jin MD 1 [facility], [facility] 2 [place] [phone] 01/05/2025 6:45 EDT Treatment [facility] [place] [address] [place], [place] [phone] Carlota Jin MD 1 [facility], [facility] 2 [place] [phone] 01/08/2025 6:45 EDT Treatment [facility] [place] [address] [place], [place] [phone] Carlota Jin MD 1 [facility], [facility] 2 [place] [phone] 01/10/2025 6:45 EDT Treatment [facility] [place] [address] [place], [place] [id number] Carlota Jin MD 1 [facility], [facility] 2 [place] [phone] 01/12/2025 6:45 EDT Treatment [facility] [place] [address] [place], [place] [phone] Carlota Jin MD 1 [facility], [facility] 2 [place] [phone] 01/15/2025 6:45 EDT Treatment [facility] [place] [address] [place], [place] [phone] Carlota Jin MD 1 [facility], [facility] 2 [place] [phone] 01/17/2025 6:45 EDT Treatment [facility] [place] [address] [place] [address] Carlota Jin MD 1 [facility], [facility] 2 [place] [phone] 01/19/2025 6:45 EDT Treatment [facility] [place] [address] [place], [place] [id number] Carlota Jin MD 1 [facility], [facility] 2 [place] [phone] 01/22/2025 6:45 EDT Treatment [facility] [place] [address] [place], [place] [phone] Carlota Jin MD 1 [facility], [facility] 2 [place] [phone] 01/24/2025 6:45 EDT Treatment [facility] [place] [address] [place], [place] [phone] Carlota Jin MD 1 [facility], [facility] 2 [place] [phone] 01/26/2025 6:45 EDT Treatment [facility] [place] [address] [place], [place] [phone] Carlota Jin MD 1 [facility], [facility] 2 [place] [phone] 01/29/2025 6:45 EDT Treatment [facility] [place] [address] [place], [place] [phone] Carlota Jin MD 1 [facility], [facility] 2 [place] [phone] 01/31/2025 6:45 EDT Treatment [facility] [place] [address] [place], [place] [phone] Carlota Jin MD 1 [facility], [facility] 2 [place] [phone] 02/02/2025 6:45 EDT Treatment [facility] [place] [address] [place], [place] [phone] Carlota Jin MD 1 [facility], [facility] 2 [place] [phone] 02/05/2025 6:45 EDT Treatment [facility] [place] [address] [place], [place] [phone] Carlota Jin MD 1 [facility], [facility] 2 [place] [phone] 02/07/2025 6:45 EDT Treatment [facility] [place] [address] [place], [place] [phone] Carlota Jin MD 1 [facility], [facility] 2 [place] [phone] 02/09/2025 6:45 EDT Treatment [facility] [place] [address] [place], [place] [phone] Carlota Jin MD 1 [facility], [facility] 2 [place] [phone] 02/12/2025 6:45 EDT Treatment [facility] [address] [place], [place] [phone] Carlota Jin MD 1 [facility], [facility] 2 [place] [phone] 02/14/2025 6:45 EDT Treatment [facility] [place] [address] [place], [place] [phone] Carlota Jin MD 1 [facility], [facility] 2 [place] [phone] 02/16/2025 6:45 EDT Treatment [facility] [address] [place], [place] [phone] Carlota Jin MD 1 [facility], [facility] 2 [place] [phone] 02/19/2025 6:45 EDT Treatment [facility] [address] [place], [place] [phone] Carlota Jin MD [address] [phone] 02/21/2025 6:45 EDT Treatment [facility] [address] [place], [place] [phone] Carlota Jin MD [address] [place] [phone] documented as of this encounter Procedures Procedure Name Priority Date/Time Associated Diagnosis Comments HEMODIALYSIS Routine 07/05/2023 6:28 EDT ESRD (end stage renal disease) ([facility]) documented in this encounter Visit Diagnoses Diagnosis ESRD (end stage renal disease) ([facility])- Primary End stage renal disease Anemia [...] oral, ONCE IN DIALYSIS, 1 dose, On 07/05/23 at 0645, Routine, DialysisIndications:ESRD (end stage renal disease) ([facility]),Secondary hyperparathyroidism ([facility]) Given 07/05/2023 6:42 EDT 2 Tablets epoetin ken (EPOGEN) 20,000 unit/2 mL injection 500 Units 500 Units, intravenous, ONCE IN DIALYSIS, 1 dose, On Wed07/05/23 at 0645, Routine, DialysisIndications:ESRD (end stage renal disease) ([facility]),Anemia of chronic renal failure, unspecified CKD stage Given 07/05/2023 6:42 EDT 500 Units heparin injection 9,000 Units 9,000 Units, intravenous, ONCE IN DIALYSIS, 1 dose, On Wed07/05/23 at 0645, Routine, Dialysis, Now x1 bolus 4500 units to be given at the beginning of dialysis 1500 units/hour to be given over the course of dialysis (9000 units total). Stop 1 hour prior to end of treatment. To be administered per Policy [id number].Indications:ESRD (end stage renal disease) ([facility]) Given 07/05/2023 6:40 EDT 9,000 Units LiquaCel liquid protein liquid 30 mL 30 mL, oral, ONCE IN DIALYSIS, 1 dose, On Wed07/05/23 at 0645, RoutineIndications:Hypoalbuminemi a,ESRD (end stage renal disease) ([facility]) Given 07/05/2023 6:42 EDT 30 mL documented in this encounter Orders Dialysis Count Last Ordered Date First Orde red Date HEMODIALYSIS 1 07/05/2023 documented in this encounter Care Teams [employer] Heat [employer] Machinist Relationship Specialty Start Date End Date Adeola Villegas APRN [address] [place] [address] PCP - General 10/12/16 07/06/23 documented as of this encounter
--- OUTSIDE RECORDS SUMMARY | 2024-12-05 12:21 | XMS_ITS | Encounter Summary ---
Author Organization [facility] Address [address] [place] [address] Care Team Providers Care Evening Sitter Name Role Phone Ken Greer MD Primary Care Provider [phone] Encounter Details Date Type Department Care Team (Latest Contact Info) Description 07/14/2023 6:45 EDT Treatment [facility] [address] [place], [place] [id number] Carlota Jin MD 1 [facility], Level [address] [place] [address] ESRD (end stage renal disease) ([facility]) (Primary Dx); Anemia of chronic renal failure, unspecified CKD stage; Hypoalbuminemia; Secondary hyperparathyroidism ([facility]) Social History Tobacco Use Types Packs/Day Years [...] - Temperature - - Respiratory Rate 16 07/14/2023 0629 EDT Oxygen Saturation - - Inhaled Oxygen Concentration - - Weight 89.4 kg (197 lb 1.5 oz) 07/14/2023 0623 E DT Height - - Body Mass Index 29.11 07/08/2023 0839 EDT documented in this encounter Miscellaneous Notes * Flowsheet Note - Marcela Cox RN - 07/14/2023 1319 EDT 07/14/23 1109 Post-Hemodialysis Assessment Total Blood Processed (L) 90.57 Liters On Line Clearance: spKt/V 1.45 spKt/V Dialyzer Clearance Lightly streaked Treatment UFR (ml:kg:hr) 7.95 ml:kg:hr Critline refill Not done Fluid Removed (L) 3 L Post-Dialysis Scale Weight 87.6 kg (193 lb 2 oz) Wheelchair Weight 0 kg (0 lb) Prosthesis Weight 1 kg (2 lb 3.3 oz) (boots per notes) Post-Treatment Weight (kg) 86.6 Treatment Weight Change (kg) 2.8 kg Day Target Weight (kg) 86.9 Post Sitting/Lying BP 158/86 Post Sitting/Lying pulse 73 Post Standing BP 151/78 Post Standing Pulse 73 Temp 36.6 ??C [...] 6:45 EST Treatment [facility] [place] [address] [place] [phone] Carlota Jin MD 1 [facility], Level [address] [place] [address] 12/08/2024 6:45 EST Treatment [facility] [place] [address] [place], [place] [id number] Carlota Jin MD 1 [facility], [facility] 2 [place] [phone] 12/11/2024 6:45 EST Treatment [facility] [place] [address] [place], [place] [id number] Carlota Jin MD 1 [facility], [facility] 2 [place] [phone] 12/13/2024 6:45 EST Treatment [facility] [place] [address] [place], [place] [id number] Carlota Jin MD 1 [facility], [facility] 2 [place] [phone] 12/15/2024 6:45 EST Treatment [facility] [place] [address] [place], [place] [id number] Carlota Jin MD [address] [phone] 12/18/2024 6:45 EST Treatment [facility] [place] [address] [place], [place] [id number] Carlota Jin MD 1 [facility] 2 [place] [phone] 12/20/2024 6:45 EST Treatment [facility] [place] [address] [place], [place] [id number] Carlota Jin MD 1 [facility], [facility] 2 [place] [phone] 12/22/2024 6:45 EST Treatment [facility] [place] [address] [place], [place] [id number] Carlota Jin MD 1 [facility], [facility] 2 [place] [phone] 12/25/2024 6:45 EST Treatment [facility] [address] [place], [place] [id number] Carlota Jin MD 1 [facility], [facility] 2 [place] [phone] 12/27/2024 6:45 EST Treatment [facility] [address] [place], [place] [id number] Carlota Jin MD 1 [facility], [facility] 2 [place] [phone] 12/29/2024 6:45 EST [facility] [address] [place], [place] [id number] Carlota Jin MD 1 [facility], [facility] 2 [place] [phone] 01/01/2025 6:45 EDT Treatment [facility] [address] [place], [place] [id number] Carlota Jin MD 1 [facility], [facility] 2 [place] [phone] 01/03/2025 6:45 EDT Treatment [facility] [place] [address] [place], [place] [id number] Carlota Jin MD 1 [facility], [facility] 2 [place] [phone] 01/05/2025 6:45 EDT Treatment [facility] [place] [address] [place], [place] [id number] Carlota Jin MD 1 [facility], [address] [phone] 01/08/2025 6:45 EDT Treatment [facility] [place] [address] [place], [place] [id number] Carlota Jin MD 1 [facility], [address] [phone] 01/10/2025 6:45 EDT Treatment [facility] [place] [address] [place], [place] [id number] Carlota Jin MD 1 [facility], [address] [phone] 01/12/2025 6:45 EDT Treatment [facility] [place] [address] [place], [place] [id number] Carlota Jin MD 1 [facility], [facility] 2 [place] [phone] 01/15/2025 6:45 EDT Treatment [facility] [place] [address] [place], [place] [id number] Carlota Jin MD 1 [facility], Level [address] [place] [phone] 01/17/2025 6:45 EDT Treatment [facility] [place] [address] [place], [place] [id number] Carlota Jin MD 1 [facility], [facility] 2 [place] [phone] 01/19/2025 6:45 EDT Treatment [facility] [place] [address] [place], [place] [id number] Carlota Jin MD 1 [facility], [facility] 2 [place] [phone] 01/22/2025 6:45 EDT Treatment [facility] [place] [address] [place], [place] [id number] Carlota Jin MD 1 [facility], [facility] 2 [place] [phone] 01/24/2025 6:45 EDT Treatment [facility] [place] [address] [place] [id number] Carlota Jin MD 1 [facility], [facility] 2 [place] [phone] 01/26/2025 6:45 EDT Treatment [facility] [place] [address] [place], [place] [id number] Carlota Jin MD 1 [facility], [facility] 2 [place] [phone] 01/29/2025 6:45 EDT Treatment [facility] [place] [address] [place], [place] [id number] Carlota Jin MD 1 [facility], [facility] 2 [place] [phone] 01/31/2025 6:45 EDT Treatment [facility] [place] [address] [place], [place] [id number] Carlota Jin MD 1 [facility], [facility] 2 [place] [phone] 02/02/2025 6:45 EDT Treatment [facility] [place] [address] [place], [place] [id number] Carlota Jin MD [address] [place] [address], [facility] 2 [place] [phone] 02/05/2025 6:45 EDT Treatment [facility] [place] [address] [place], [place] [id number] Carlota Jin MD [address] [place] [address], [facility] 2 [place] [phone] 02/07/2025 6:45 EDT Treatment [facility] [place] [address] [place], [place] [id number] Carlota Jin MD 1 [facility], [facility] 2 [place] [phone] 02/09/2025 6:45 EDT Treatment [facility] [place] [address] [place], [place] [id number] Carlota Jin MD 1 [facility], [facility] 2 [place] [phone] 02/12/2025 6:45 EDT Treatment [facility] [place] [address] [place], [place] [id number] Carlota Jin MD 1 [facility], [facility] 2 [place] [phone] 02/14/2025 6:45 EDT Treatment [facility] [place] [address] [place], [place] [id number] Carlota Jin MD 1 [facility], [facility] 2 [place] [phone] 02/16/2025 6:45 EDT Treatment [facility] [place] [address] [place], [place] [id number] Carlota Jin MD 1 [facility], [facility] 2 [place] [phone] 02/19/2025 6:45 EDT Treatment [facility] [address] [place], [place] [id number] Carlota Jin MD 1 [facility], [facility] 2 [place] [phone] 02/21/2025 6:45 EDT Treatment [facility] [place] [address] [place], [place] [id number] Carlota Jin MD 1 [facility], [facility] 2 [place] [phone] documented as of this encounter Procedures Procedure Name Priority Date/Time Associated Diagnosis Comments COMPLETE BLOOD COUNT Routine 07/14/2023 6:30 EDT ESRD (end stage renal disease) ([facility]) HEMODIALYSIS Routine 07/14/2023 6:29 EDT ESRD (end stage renal disease) ([facility]) documented in this encounter Results * (ABNORMAL) COMPLETE BLOOD COUNT (07/14/2023 6:30 EDT) WBC 8.77 4.00 - 10.40 K/cmm 07/14/2023 21:41 [facility] RBC 2.99(L) 4.36 - 5.78 M/cmm 07/14/2023 21:41 [facility] Hemoglobin 9.5(L) 13.8 - 17.3 g/dL 07/14/2023 21:41 [facility] HCT 29.2(L) 39.5 - 50.2 % 07/14/2023 21:41 [facility] MCV 98(H) 81 - 95 fL 07/14/2023 21:41 [facility] MCH 31.8 27.6 - 33.0 pg 07/14/2023 21:41 [facility] MCHC 32.5(L) 32.8 - 36.4 g/dL 07/14/2023 21:41 [facility] RDW-CV 12.4 <14.2 % 07/14/2023 21:41 [facility] RDW-SD 44.6 <46.0 fl 07/14/2023 21:41 [facility] PLT 282 141 - 377 K/cmm 07/14/2023 21:41 [facility] MPV 11.5 9.5 - 12.7 fL 07/14/2023 21:41 [facility] Blood VENOUS BLOOD / Unknown Venipuncture / Unknown 07/14/2023 6:30 EDT 07/14/2023 6:30 EDT us Carolta Jin MD HEMATOLOGY & PF4 ORDERABL ES Final Result [facility] [address] [place] [address] documented in this encounter Visit Diagnoses Diagnosis ESRD (end stage renal disease) ([facility])- Primary End stage renal disease Anemia of chronic renal failure, unspecified CKD stage Hypoalbuminemia Other disorders of plasma protein metabolism Secondary hyperparathyroidism ([facility]) Secondary hyperparathyroidism (of renal origin) documented in this encounter Administered Medications Inactive Administered Medications - up to 3 most recent administrations Medication Order MAR Action Action Date Dose Rate Site calcium carbonate (TUMS) tablet 500 mg (200 mg elemental calcium) 2 Tablet 2 Tablet, oral, ONCE IN DIALYSIS, 1 dose, On Wed07/14/23 at 0645, Routine, DialysisIndications:ESRD (end stage renal disease) ([facility]),Secondary hyperparathyroidism ([facility]) Given 07/14/2023 6:57 EDT 2 Tablets epoetin ken (EPOGEN) 20,000 unit/2 mL injection 500 Units 500 Units, intravenous, ONCE IN DIALYSIS, 1 dose, On Wed07/14/23 at 0645, Routine, DialysisIndications:ESRD (end stage renal disease) ([facility]),Anemia of chronic renal failure, unspecified CKD stage Given 07/14/2023 6:57 EDT 500 Units heparin injection 9,000 Units 9,000 Units, intravenous, ONCE IN DIALYSIS, 1 dose, On Wed07/14/23 at 0645, Routine, Dialysis, Now x1 bolus 4500 units to be given at the beginning of dialysis 1500 units/hour to be given over the course of dialysis (9000 units total). Stop 1 hour prior to end of treatment. To be administered per Policy [id number].Indications:ESRD (end stage renal disease) ([facility]) Given 07/14/2023 6:40 EDT 9,000 Units LiquaCel liquid protein liquid 30 mL 30 mL, oral, ONCE IN DIALYSIS, 1 dose, On Wed07/14/23 at 0645, RoutineIndications:Hypoalbuminemi a,ESRD (end stage renal disease) ([facility]) Given 07/14/2023 6:57 EDT 30 mL documented in this encounter Orders Dialysis Count Last Ordered Date First Orde red Date HEMODIALYSIS 1 07/14/2023 documented in this encounter Care Teams Evening Sitter Relationship Specialty Start Date End Date Ken Greer MD [address] [place] [address] PCP - General 07/07/23 documented as of this encounter
--- OUTSIDE RECORDS SUMMARY | 2024-12-05 12:21 | XMS_ITS | Encounter Summary ---
Author Organization [facility] Address [address] [place] [address] Care Team Providers Care Harness Mender Name Role Phone Ken Greer MD Primary Care Provider [phone] Encounter Details Date Type Department Care Team (Latest Contact Info) Description 07/12/2023 6:[address] [facility] [address] [place], [place] [id number] Carlota Jin MD 1 [facility], Level 2 [place] [address] ESRD (end stage renal disease) ([facility]) (Primary Dx); Anemia of chronic renal failure, unspecified CKD stage; Hypoalbuminemia; Secondary hyperparathyroidism ([facility]) Social History Tobacco Use Types Packs/Day [...] - Temperature - - Respiratory Rate 16 07/12/2023 0629 EDT Oxygen Saturation - - Inhaled Oxygen Concentration - - Weight 90.6 kg (199 lb 11.8 oz) 07/12/2023 0629 EDT Height - - Body Mass Index 29.5 07/08/2023 0839 EDT documented in this encounter Miscellaneous Notes * Flowsheet Note - Marcela Cox RN - 07/12/2023 1228 EDT 07/12/23 1127 Post-Hemodialysis Assessment Total Blood Processed (L) 89.12 Liters On Line Clearance: spKt/V 1.48 spKt/V Dialyzer Clearance Lightly streaked Treatment UFR (ml:kg:hr) 8.1 ml:kg:hr Critline refill Not done Fluid Removed (L) 3.05 L Post-Dialysis Scale Weight 87.7 kg (193 lb 5.5 oz) Wheelchair Weight 0 kg (0 lb) Prosthesis Weight 0 kg (0 lb) (boots per notes) Post-Treatment Weight (kg) 87.7 Treatment Weight Change (kg) 2.9 kg Day Target Weight (kg) 87.6 Post Sitting/Lying BP 180/80 Post Sitting/Lying pulse 70 Post Standing BP 166/79 Post Standing Pulse 73 Temp 36.2 ??C (97.2 ??F) Temp src Temporal Post access assessment AVF/AFG Hemostasis achieved Yes Note 8 minute hold both sites Orientation Alert and Oriented x3 Yes Time Yes Place Yes Person Yes Cooperative Yes Disoriented No Discharge Ambulation Methods Ambulatory with assistive device Ambulation device Cane Wrap up items Patient Response to Treatment Removed 3L out of original 3.5L UF goal. Pt reports cramping at the end of tx, UF left off for remainder of tx. Cramping resolved with UF off. Comments no concerns voiced post tx. d/c stable. documented in this encounter Plan of Treatment Upcoming Encounters Date Type Department Care Team (Late st Contact Info) Description 12/06/2024 6:45 EST Treatment [facility] - [place] [address] [place] [address] Carlota Jin MD 1 [facility], Level [address] [place] [address] 12/08/2024 6:45 EST Treatment [facility] - [place] [address] [place], [place] [id number] Carlota Jin MD 1 [facility], [facility] 2 [place] [phone] 12/11/2024 6:45 EST Treatment [facility] - [place] [address] [place], [place] [id number] Carlota Jin MD 1 [facility], [facility] 2 [place] [phone] 12/13/2024 6:45 EST Treatment [facility] Dial[facility] [address] [place], [place] [id number] Carlota Jin MD 1 [facility], [facility] 2 [place] [phone] 12/15/2024 6:45 EST Treatment [facility] D[facility] [address] [place], [place] [address] Carlota Jin MD 1 [facility], [facility] 2 [place] [phone] 12/18/2024 6:45 EST Treatment [facility] [place] [address] [place], [place] [id number] Carlota Jin MD 1 [facility], [facility] 2 [place] [phone] 12/20/2024 6:45 EST Treatment [facility] Dial[facility] [address] [place], [place] [id number] Carlota Jin MD 1 [facility], [facility] 2 [place] [phone] 12/22/2024 6:45 EST Treatment [facility] - [place] [address] [place], [place] [id number] Carlota Jin MD 1 [facility], [facility] 2 [place] [phone] 12/25/2024 6:45 EST Treatment [facility] - [place] [address] [place] [address] Carlota Jin MD 1 [facility], [facility] 2 [place] [phone] 12/27/2024 6:45 EST Treatment [facility] - [place] [address] [place], [place] [phone] Carlota Jin MD 1 [facility], [facility] 2 [place] [phone] 12/29/2024 6:45 EST Treatment [facility] - [place] [address] [place] [address] Carlota Jin MD 1 [facility], [facility] 2 [place] [phone] 01/01/2025 6:45 EDT Treatment [facility] - [place] [address] [place], [place] [id number] Carlota Jin MD 1 [facility], [facility] 2 [place] [phone] 01/03/2025 6:45 EDT Treatment [facility] - [place] [address] [place], [place] [address] Carlota Jin MD 1 [facility], [facility] 2 [place] [phone] 01/05/2025 6:45 EDT Treatment [facility] - [place] [address] [place], [place] [id number] Carlota Jin MD 1 [facility], [address] [phone] 01/08/2025 6:45 EDT Treatment [facility] - [place] [address] [place], [place] [id number] Carlota Jin MD 1 [facility], [address] [phone] 01/10/2025 6:45 EDT Treatment [facility] - [place] [address] [place], [place] [address] Carlota Jin MD 1 [facility], [facility] 2 [place] [phone] 01/12/2025 6:45 EDT Treatment [facility] - [place] [address] [place], [place] [id number] Carlota Jin MD 1 [facility], [facility] 2 [place] [phone] 01/15/2025 6:45 EDT Treatment [facility] - [place] [address] [place], [place] [address] Carlota Jin MD 1 [facility], [facility] 2 [place] [phone] 01/17/2025 6:45 EDT Treatment [facility] - [place] [address] [place], [place] [id number] Carlota Jin MD 1 [facility], [address] [phone] 01/19/2025 6:45 EDT Treatment [facility] - [place] [address] [place], [place] [id number] Carlota Jin MD 1 [facility], [address] [phone] 01/22/2025 6:45 EDT Treatment [facility]ial[facility] [address] [place], [place] [id number] Carlota Jin MD 1 [facility], [address] [phone] 01/24/2025 6:45 EDT Treatment [facility] D[facility]ys[facility] - [place] [address] [place], [place] [id number] Carlota Jin MD 1 [facility], [address] [phone] 01/26/2025 6:45 EDT Treatment [facility] - [place] [address] [place], [place] [id number] Carlota Jin MD 1 [facility], [facility] 2 [place] [phone] 01/29/2025 6:45 EDT Treatment [facility] D[facility]ys[facility] - [place] [address] [place], [place] [id number] Carlota Jin MD 1 [facility], [facility] 2 [place] [phone] 01/31/2025 6:45 EDT Treatment [facility] - [place] [address] [place], [place] [id number] Carlota Jin MD 1 [facility], [address] [phone] 02/02/2025 6:45 EDT Treatment [facility] - [place] [address] [place], [place] [id number] Carlota Jin MD [address] [place] [address], [address] [phone] 02/05/2025 6:45 EDT Treatment [facility] - [place] [address] [place], [place] [id number] Carlota Jin MD 1 [facility], [facility] 2 [place] [phone] 02/07/2025 6:45 EDT Treatment [facility] D[facility]i [place] [address] [place], [place] [id number] Carlota Jin MD 1 [facility], [facility] 2 [place] [phone] 02/09/2025 6:45 EDT Treatment [facility] D[facility] - [place] [address] [place], [place] [id number] Carlota Jin MD 1 [facility], [facility] 2 [place] [phone] 02/12/2025 6:45 EDT Treatment [facility] D[facility] - [place] [address] [place], [place] [id number] Carlota Jin MD 1 [facility], [address] [phone] 02/14/2025 6:45 EDT Treatment [facility] D[facility] - [place] [address] [place], [place] [id number] Carlota Jin MD 1 [facility], [address] [phone] 02/16/2025 6:45 EDT Treatment [facility] - [place] [address] [place], [place] [id number] Carlota Jin MD 1 [facility], [address] [phone] 02/19/2025 6:45 EDT Treatment [facility] Dialysi - [place] [address] [place], [place] [id number] Carlota Jin MD 1 [facility], [facility] 2 [place] [phone] 02/21/2025 6:45 EDT Treatment [facility] D[facility] - [place] [address] [place], [place] [phone] Carlota Jin MD 1 [facility], Level [address] [place] [phone] documented as of this encounter Procedures Procedure Name Priority Date/Time Associated Diagnosis Comments HEMODIALYSIS Routine 07/12/2023 6:27 EDT ESRD (end stage renal disease) ([facility]) documented in this encounter Visit Diagnoses Diagnosis ESRD (end stage renal disease) ([facility])- Primary End stage renal disease Anemia of chronic renal failure, unspecified CKD stage Hypoalbuminemia Other disorders of plasma protein metabolism Secondary hyperparathyroidism ([facility]) Secondary hyperparathyroidism (of renal origin) documented in this encounter Administered Medications Inactive Administered Medications - up to 3 most recent administrations Medication Order MAR Action Action Date Dose Rate Site calcium carbonate (TUMS) tablet 500 mg (200 mg elemental calcium) 2 Tablet 2 Tablet, oral, ONCE IN DIALYSIS, 1 dose, On Wed07/12/23 at 0645, Routine, DialysisIndications:ESRD (end stage renal disease) ([facility]),Secondary hyperparathyroidism ([facility]) Given 07/12/2023 7:03 EDT 2 Tablets epoetin ken (EPOGEN) 20,000 unit/2 mL injection 500 Units 500 Units, intravenous, ONCE IN DIALYSIS, 1 dose, On Wed07/12/23 at 0645, Routine, DialysisIndications:ESRD (end stage renal disease) ([facility]),Anemia of chronic renal failure, unspecified CKD stage Given 07/12/2023 7:03 EDT 500 Units heparin injection 9,000 Units 9,000 Units, intravenous, ONCE IN DIALYSIS, 1 dose, On Wed07/12/23 at 0645, Routine, Dialysis, Now x1 bolus 4500 units to be given at the beginning of dialysis 1500 units/hour to be given over the course of dialysis (9000 units total). Stop 1 hour prior to end of treatment. To be administered per Policy [id number].Indications:ESRD (end stage renal disease) ([facility]) Given 07/12/2023 6:45 EDT 9,000 Units LiquaCel liquid protein liquid 30 mL 30 mL, oral, ONCE IN DIALYSIS, 1 dose, On Wed07/12/23 at 0645, RoutineIndications:Hypoalbuminemi a,ESRD (end stage renal disease) ([facility]) Given 07/12/2023 7:03 EDT 30 mL documented in this encounter Orders Dialysis Count Last Ordered Date First Orde red Date HEMODIALYSIS 1 07/12/2023 documented in this encounter Care Teams Harness Mender Relationship Specialty Start Date End Date Ken Greer MD [address] [place] [address] PCP - General 07/07/23 documented as of this encounter
--- OUTSIDE RECORDS SUMMARY | 2024-12-05 12:21 | XMS_ITS | Encounter Summary ---
Author Organization [facility] Address [address] [place] [address] Care Team Providers Care Sheeting Puller Name Role Phone Ken Greer MD Primary Care Provider [phone] Encounter Details Date Type Department Care Team (Late st Contact Info) Description 07/09/2023 Documentation Visit [facility] [address] [place], [place] [phone] Melissa Crespo, RN Social History Tobacco Use [...] [facility] System [facility] - [place] [address] [place] [id number] Carlota Jin MD 1 [facility], Level [address] [place] [phone] 12/08/2024 6:45 EST Treatment [facility] [address] [place] [id number] Carlota Jin MD 1 [facility], [facility] 2 [place] [phone] 12/11/2024 6:45 EST Treatment [facility] [place] [address] [place], [place] [address] [phone] Carlota Jin MD 1 [facility], [facility] 2 [place] [phone] 12/13/2024 6:45 EST Treatment [facility] [place] [address] [place] [address] Carlota Jin MD 1 [facility], [facility] 2 [place] [phone] 12/15/2024 6:45 EST Treatment [facility] [place] [address] [place] [address] Carlota Jin MD 1 [facility], [facility] 2 [place] [phone] 12/18/2024 6:45 EST Treatment [facility] [place] [address] [place] [address] Carlota Jin MD 1 [facility], [facility] 2 [place] [phone] 12/20/2024 6:45 EST Treatment [facility] [place] [address] [place], [place] [id number] Carlota Jin MD 1 [facility], [facility] 2 [place] [phone] 12/22/2024 6:45 EST Treatment [facility] [place] [address] [place], [place] [id number] Carlota Jin MD 1 [facility], [facility] 2 [place] [phone] 12/25/2024 6:45 EST Treatment [facility] [place] [address] [place], [place] [id number] Carlota Jin MD 1 [facility], [facility] 2 [place] [phone] 12/27/2024 6:45 EST Treatment [facility] [place] [address] [place], [place] [id number] Carlota Jin MD 1 [facility], [facility] 2 [place] [phone] 12/29/2024 6:45 EST Treatment [facility] [place] [address] [place], [place] [address] Carlota Jin MD 1 [facility], [facility] 2 [place] [phone] 01/01/2025 6:45 EDT Treatment [facility] [place] [address] [place], [place] [id number] Carlota Jin MD 1 [facility], [facility] 2 [place] [phone] 01/03/2025 6:45 EDT Treatment [facility] [place] [address] [place], [place] [id number] Carlota Jin MD 1 [facility], [facility] 2 [place] [phone] 01/05/2025 6:45 EDT Treatment [facility] [place] [address] [place] [address] Carlota Jin MD 1 [facility], [facility] 2 [place] [phone] 01/08/2025 6:45 EDT Treatment [facility] [place] [address] [place], [place] [id number] Carlota Jin MD 1 [facility], [address] [phone] 01/10/2025 6:45 EDT Treatment [facility] [place] [address] [place], [place] [id number] Carlota Jin MD 1 [facility], [address] [phone] 01/12/2025 6:45 EDT Treatment [facility] [place] [address] [place], [place] [id number] Carlota Jin MD 1 [facility], [address] [phone] 01/15/2025 6:45 EDT Treatment [facility] [place] [address] [place], [place] [id number] Carlota Jin MD 1 [facility], [facility] 2 [place] [phone] 01/17/2025 6:45 EDT Treatment [facility] [place] [address] [place], [place] [id number] Carlota Jin MD 1 [facility], [facility] 2 [place] [phone] 01/19/2025 6:45 EDT Treatment [facility] [place] [address] [place], [place] [id number] Carlota Jin MD 1 [facility], [facility] 2 [place] [phone] 01/22/2025 6:45 EDT Treatment [facility] [place] [address] [place] [address] Carlota Jin MD 1 [facility], [facility] 2 [place] [phone] 01/24/2025 6:45 EDT Treatment [facility] [place] [address] [place], [place] [id number] Carlota Jin MD 1 [facility], [facility] 2 [place] [phone] 01/26/2025 6:45 EDT Treatment [facility] [place] [address] [place], [place] [id number] Carlota Jin MD 1 [facility], [facility] 2 [place] [phone] 01/29/2025 6:45 EDT Treatment [facility] [place] [address] [place], [place] [address] Carlota Jin MD 1 [facility], [facility] 2 [place] [phone] 01/31/2025 6:45 EDT Treatment [facility] [place] [address] [place], [place] [id number] Carlota Jin MD 1 [facility], [facility] 2 [place] [phone] 02/02/2025 6:45 EDT Treatment [facility] [place] [address] [place], [place] [id number] Carlota Jin MD 1 [facility], [facility] 2 [place] [phone] 02/05/2025 6:45 EDT Treatment [facility] [place] [address] [place], [place] [id number] Carlota Jin MD 1 [facility], [facility] 2 [place] [phone] 02/07/2025 6:45 EDT Treatment [facility] [place] [address] [place], [place] [id number] Carlota Jin MD 1 [facility], [facility] 2 [place] [phone] 02/09/2025 6:45 EDT Treatment [facility] [place] [address] [place], [place] [id number] Carlota Jin MD 1 [facility], [facility] 2 [place] [phone] 02/12/2025 6:45 EDT Treatment [facility] [place] [address] [place], [place] [address] Carlota Jin MD 1 [facility], [facility] 2 [place] [phone] 02/14/2025 6:45 EDT Treatment [facility] [place] [address] [place], [place] [id number] Carlota Jin MD 1 [facility], [facility] 2 [place] [phone] 02/16/2025 6:45 EDT Treatment [facility] [place] [address] [place], [place] [id number] Carlota Jin MD 1 [facility], [facility] 2 [place] [phone] 02/19/2025 6:45 EDT Treatment [facility] [place] [address] [place] [address] Carlota Jin MD 1 [facility], [facility] 2 [place] [phone] 02/21/2025 6:45 EDT Treatment [facility] [place] [address] [place], [place] [id number] Carlota Jin MD 1 [facility], [facility] 2 [place] [phone] documented as of this encounter Visit Diagnoses Not on filedocumented in this encounter Care Teams Sheeting Puller Relationship Specialty Start Date End Date Ken Gre[place] [address] PCP - General 07/07/23 documented as of this encounter
--- OUTSIDE RECORDS SUMMARY | 2024-12-05 12:21 | XMS_ITS | Encounter Summary ---
Author Organization [facility] Address [address] [place] [address] Care Team Providers Care Sap Solution Manager Consultant Name Role Phone Adeola Villegas APRN Primary Care Provider [phone] Encounter Details Date Type Department Care Team (Latest Contact Info) Description 06/28/2023 6:45 EDT Treatment [facility] [address] [place] [address] Carlota Jin MD 1 [facility], Level [address] [place] [phone] ESRD (end stage renal disease) ([facility]) (Primary Dx); Anemia of chronic renal failure, unspecified CKD stage; Hypoalbuminemia; Secondary hyperparathyroidism ([facility]) Social History Tobacco Use Types Packs/Day Years [...] - Temperature - - Respiratory Rate 18 06/28/2023 1048 EDT Oxygen Saturation - - Inhaled Oxygen Concentration - - Weight 88.5 kg (195 lb 1.7 oz) 06/28/2023 0626 E DT Height - - Body Mass Index 28.4 01/25/2023 0751 EDT documented in this encounter Miscellaneous Notes * Flowsheet Note - Teto Ribeiro RN - 06/28/2023 1146 EDT 06/28/23 1048 Post-Hemodialysis Assessment Total Blood Processed (L) 90.12 Liters On Line Clearance: spKt/V 1.48 spKt/V Dialyzer Clearance Lightly streaked Treatment UFR (ml:kg:hr) 0 ml:kg:hr Critline refill Negative (H1: 30.9 H2: 30.6) Fluid Removed (L) 2 L Post-Dialysis Scale Weight 87.7 kg (193 lb 5.5 oz) Wheelchair Weight 0 kg (0 lb) Prosthesis Weight 0 kg (0 lb) Post-Treatment Weight (kg) 87.7 Treatment Weight Change (kg) 0.8 kg Day Target Weight (kg) 87 Post Sitting/Lying BP (!) 185/98 (RN aware) Post Sitting/Lying pulse 78 Post Standing BP 147/80 Post Standing Pulse 76 Temp 36.5 ??C (97.7 ??F) Temp src Temporal Resp 18 Post access assessment Bruit present: Yes Thrill Present AVF/AFG Hemostasis achieved Yes Note Patient held for 10mins with blue clamps Orientation Alert and Oriented x3 Yes Time Yes Place Yes Person Yes Cooperative Yes Disoriented No Discharge Ambulation Methods Ambulatory without assistance Wrap up items Patient Response to Treatment Teri. tx well, removed 2.0L Comments Pt denies any complaints, no s/s of distress noted, VSS upon d/c documented in this encounter Plan of Treatment Upcoming Encounters Date Type Department Care Team (Late st Contact Info) Description 12/06/2024 6:45 EST Treatment [facility] [address] [place], [place] [phone] Carlota Jin MD 1 [facility], [address] [place] [address] 12/08/2024 6:45 EST Treatment [facility] [address] [place], [place] [id number] Carlota Jin MD 1 [facility], [facility] 2 [place] [phone] 12/11/2024 6:45 EST Treatment [facility] [address] [place], [place] [id number] Carlota Jin MD 1 [facility], [facility] 2 [place] [phone] 12/13/2024 6:45 EST Treatment [facility] [address] [place], [place] [phone] Carlota Jin MD 1 [facility], [facility] 2 [place] [phone] 12/15/2024 6:45 EST Treatment [facility] [address] [place], [place] [id number] Carlota Jin MD 1 [facility], [address] [phone] 12/18/2024 6:45 EST Treatment [facility] [address] [place], [place] [phone] Carlota Jin MD 1 [facility], [facility] 2 [place] [phone] 12/20/2024 6:45 EST Treatment [facility] [address] [place], [place] [id number] Carlota Jin MD 1 [facility] 2 [place] [phone] 12/22/2024 6:45 EST Treatment [facility] [address] [place], [place] [id number] Carlota Jin MD 1 [facility], [facility] 2 [place] [phone] 12/25/2024 6:45 EST Treatment [facility] [address] [place], [place] [id number] Carlota Jin MD 1 [facility], [facility] 2 [place] [phone] 12/27/2024 6:45 EST Treatment [facility] [address] [place], [place] [id number] Carlota Jin MD 1 [facility], [facility] 2 [place] [phone] 12/29/2024 6:45 EST Treatment [facility] [address] [place], [place] [phone] Calrota Jin MD 1 [facility], [facility] 2 [place] [phone] 01/01/2025 6:45 EDT Treatment [facility] [address] [place], [place] [id number] Carlota Jin MD 1 [facility], [facility] 2 [place] [phone] 01/03/2025 6:45 EDT Treatment [facility] [address] [place], [place] [phone] Carlota Jin MD 1 [facility], [facility] 2 [place] [phone] 01/05/2025 6:45 EDT Treatment [facility] [address] [place], [place] [id number] Carlota Jin MD [address] [place] [address], [address] [phone] 01/08/2025 6:45 EDT Treatment [facility] [address] [place], [place] [phone] Carlota Jin MD [address] [place] [address], [address] [phone] 01/10/2025 6:45 EDT Treatment [facility] [address] [place], [place] [id number] Carlota Jin MD [address] [place] [address], [address] [phone] 01/12/2025 6:45 EDT Treatment [facility] [address] [place], [place] [id number] Carlota Jin MD [address] [place] [address], [facility] 2 [place] [phone] 01/15/2025 6:45 EDT Treatment [facility] [address] [place], [place] [id number] Carlota Jin MD 1 [facility], [address] [place] [phone] 01/17/2025 6:45 EDT Treatment [facility] [address] [place], [place] [address] Carlota Jin MD 1 [facility], [facility] 2 [place] [phone] 01/19/2025 6:45 EDT Treatment [facility] [address] [place], [place] [id number] Carlota Jin MD 1 [facility], [facility] 2 [place] [phone] 01/22/2025 6:45 EDT Treatment [facility] [address] [place], [place] [phone] Carlota Jin MD 1 [facility], [facility] 2 [place] [phone] 01/24/2025 6:45 EDT Treatment [facility] [address] [place], [place] [id number] Carlota Jin MD 1 [facility], [facility] 2 [place] [phone] 01/26/2025 6:45 EDT Treatment [facility] [address] [place], [place] [id number] Carlota Jin MD 1 [facility], [facility] 2 [place] [phone] 01/29/2025 6:45 EDT Treatment [facility] [address] [place], [place] [id number] Carlota Jin MD 1 [facility], [facility] 2 [place] [phone] 01/31/2025 6:45 EDT Treatment [facility] [address] [place], [place] [id number] Carlota Jin MD 1 [facility], [facility] 2 [place] [phone] 02/02/2025 6:45 EDT Treatment [facility] [address] [place] [address] Carlota Jin MD [address] [place] [address], [facility] 2 [place] [phone] 02/05/2025 6:45 EDT Treatment [facility] [address] [place], [place] [id number] Carlota Jin MD 1 [facility], [facility] 2 [place] [phone] 02/07/2025 6:45 EDT Treatment [facility] [address] [place], [place] [phone] Carlota Jin MD 1 [facility], [facility] 2 [place] [phone] 02/09/2025 6:45 EDT Treatment [facility] [address] [place], [place] [phone] Carlota Jin MD 1 [facility], [facility] 2 [place] [phone] 02/12/2025 6:45 EDT Treatment [facility] [address] [place], [place] [phone] Carlota Jin MD 1 [facility], [facility] 2 [place] [phone] 02/14/2025 6:45 EDT Treatment [facility] [address] [place] [address] Carlota Jin MD 1 [facility], [address] [phone] 02/16/2025 6:45 EDT Treatment [facility] [address] [place], [place] [phone] Carlota Jin MD 1 [facility], [address] [phone] 02/19/2025 6:45 EDT Treatment [facility] [address] [place] [address] Carlota Jin MD 1 [facility], [facility] 2 [place] [phone] 02/21/2025 6:45 EDT Treatment [facility] [address] [place], [place] [phone] Carlota Jin MD 1 [facility], [facility] 2 [place] [phone] documented as of this encounter Procedures Procedure Name Priority Date/Time Associated Diagnosis Comments POSTDIALYSIS BUN WITH URR CALCULATION Routine 06/28/2023 12:24 EDT ESRD (end stage renal disease) ([facility]) TRANSFERRIN SATURATION Routine 06/28/2023 6:39 EDT ESRD (end stage renal disease) ([facility]) DIALYSIS ROUTINE - DIALYSIS ONLY (BUN, K, NA, CL, CO2, SANJEEV, ALB, MG, PHOS, ALKP, AST) Routine 06/28/2023 6:39 EDT ESRD (end stage renal disease) ([facility]) PROFILE IRON STUDIES (INCLUDES IRON, IBC, AND FERRITIN) Routine 06/28/2023 6:39 EDT ESRD (end stage renal disease) ([facility]) FERRITIN Routine 06/28/2023 6:39 EDT ESRD (end stage renal disease) ([facility]) HEMODIALYSIS Routine 06/28/2023 6:29 EDT ESRD (end stage renal disease) ([facility]) documented in this encounter Results * (ABNORMAL) POSTDIALYSIS BUN WITH URR CALCULATION (06/28/2023 12:24 EDT) BUN, Postdialysis 24 10 - 26 mg/dL 06/29/2023 21:45 EDT [facility] Urea Reduction Rate 71.1 Not Established % 06/29/2023 21:45 EDT [facility] Comment: NOTE: Reference range not established for Urea Reduction Rate. BUN 83(H) 10 - 26 mg/dL 06/29/2023 21:45 EDT [facility] Blood VENOUS BLOOD / Unknown Venipuncture / Unknown 06/28/2023 12:24 EDT 06/28/2023 12:24 EDT us Carlota Jin MD CHEMISTRY & BLOOD GAS ORD ERABLES Final Result Performing Organization Address City/[facility]/ZIP Co de Phone Number [facility] [address] [place] [address] * (ABNORMAL) FERRITIN (06/28/2023 6:39 EDT) Pathologist [facility] Ferritin 774(H) 22 - 322 ng/mL 06/29/2023 22:45 EDT [facility] Blood VENOUS BLOOD / Unknown Venipuncture / Unknown 06/28/2023 6:39 EDT 06/28/2023 6:39 EDT Carlota Jin MD CHEMISTRY & BLOOD GAS ORD ERABLES Final Result Performing Organization Address [facility] Co de Phone Number [facility] [address] [place] [address] * (ABNORMAL) TRANSFERRIN SATURATION (06/28/2023 6:39 EDT) [facility] Iron 82 49 - 181 ??g/dL 06/29/2023 21:51 EDT [facility] Iron Binding Capacity 232(L) 240 - 450 ??g/dL 06/29/2023 21:51 EDT [facility] Transferrin Saturation 35 15 - 45 % 06/29/2023 21:51 EDT [facility] Blood VENOUS BLOOD / Unknown Venipuncture / Unknown 06/28/2023 6:39 EDT 06/28/2023 6:39 EDT us Carlota Jin MD CHEMISTRY & BLOOD GAS ORD ERABLES Final Result Performing Organization Address [facility] Co de Phone Number [facility] [address] [place] [address] * (ABNORMAL) DIALYSIS ROUTINE - DIALYSIS ONLY (BUN, K, NA, CL, CO2, SANJEEV, ALB, MG, PHOS, ALKP, AST) (06/28/2023 6:39 EDT) Sodium 131(L) 136 - 145 mmol/L 06/29/2023 21:42 EDT [facility] Potassium 6.8(H) 3.5 - 5.0 mmol/L 06/29/2023 21:42 [facility] Chloride 93(L) 96 - 110 mmol/L 06/29/2023 21:42 [facility] CO2 Total 23 22 - 32 mmol/L 06/29/2023 21:42 [facility] Calcium 8.7 8.5 - 10.5 mg/dL 06/29/2023 21:42 [facility] Albumin 3.5 3.4 - 4.9 g/dL 06/29/2023 21:42 [facility] Phosphorus 7.2(H) 2.5 - 4.5 mg/dL 06/29/2023 21:42 [facility] Calcium Phos Product 62.6 See Note mg/dL 06/29/2023 21:42 [facility] Comment: NOTE: Reference range not established BUN, Predialysis 83(H) 10 - 26 mg/dL 06/29/2023 21:42 [facility] AST 19 15 - 46 U/L 06/29/2023 21:42 [facility] Alkaline Phosphatase 123 38 - 126 U/L 06/29/2023 21:42 [facility] Magnesium 2.4 1.7 - 2.8 mg/dL 06/29/2023 21:42 [facility] Anion Gap 15(H) 5 - 14 mmol/L 06/29/2023 21:42 [facility] Calculated Calcium 9.1 8.9 - 10.5 mg/dL 06/29/2023 21:42 [facility] Blood VENOUS BLOOD / Unknown Venipuncture / Unknown 06/28/2023 6:39 EDT 06/28/2023 6:39 EDT us Carlota Jin MD CHEMISTRY & BLOOD GAS ORD ERABLES Final Result [facility] [address] [place] [address] documented in this encounter Visit Diagnoses Diagnosis ESRD (end stage renal disease) ([facility])- Primary End stage renal disease Anemia of chronic renal failure, unspecified CKD stage Hypoalbuminemia Other disorders of plasma protein metabolism Secondary hyperparathyroidism ([facility]) Secondary hyperparathyroidism (of renal origin) documented in this encounter Administered Medications Inactive Administered Medications - up to 3 most recent administrations Medication Order MAR Action Action Date Dose Rate Site calcium carbonate (TUMS) tablet 500 mg (200 mg elemental calcium) 2 Tablet 2 Tablet, oral, ONCE IN DIALYSIS, 1 dose, On Wed06/28/23 at 0645, Routine, DialysisIndications:ESRD (end stage renal disease) ([facility]),Secondary hyperparathyroidism ([facility]) Given 06/28/2023 7:30 EDT 2 Tablets epoetin ken (EPOGEN) 20,000 unit/2 mL injection 500 Units 500 Units, intravenous, ONCE IN DIALYSIS, 1 dose, On Wed06/28/23 at 0645, Routine, DialysisIndications:ESRD (end stage renal disease) ([facility]),Anemia of chronic renal failure, unspecified CKD stage Given 06/28/2023 7:30 EDT 500 Units heparin injection 9,000 Units 9,000 Units, intravenous, ONCE IN DIALYSIS, 1 dose, On Wed06/28/23 at 0645, Routine, Dialysis, Now x1 bolus 4500 units to be given at the beginning of dialysis 1500 units/hour to be given over the course of dialysis (9000 units total). Stop 1 hour prior to end of treatment. To be administered per Policy [id number].Indications:ESRD (end stage renal disease) ([facility]) Given 06/28/2023 6:47 EDT 9,000 Units LiquaCel liquid protein liquid 30 mL 30 mL, oral, ONCE IN DIALYSIS, 1 dose, On Wed06/28/23 at 0645, RoutineIndications:Hypoalbuminemi a,ESRD (end stage renal disease) ([facility]) Given 06/28/2023 7:30 EDT 30 mL documented in this encounter Orders Dialysis Count Last Ordered Date First Orde red Date HEMODIALYSIS 1 06/28/2023 documented in this encounter Care Teams Sap Solution Manager Consultant Relationship Specialty Start Date End Date Adeola Villegas APRN [address] [place] [address] PCP - General 10/12/16 07/06/23 documented as of this encounter
--- OUTSIDE RECORDS SUMMARY | 2024-12-05 12:21 | XMS_ITS | Encounter Summary ---
Author Organization [facility] Address [address] [place] [address] Care Team Providers Care Steam Trap Man Name Role Phone Adeola Villegas MONA Primary Care Provider [phone] Encounter Details Date Type Department Care Team (Latest Contact Info) Description 06/23/2023 6:45 EDT Treatment [facility] [address] [place] [address] Carlota Jin MD 1 [facility], Level 2 [place] [phone] ESRD (end stage renal disease) ([facility]) (Primary Dx); Anemia of chronic renal failure, unspecified CKD stage; Hypoalbuminemia; Secondary hyperparathyroidism ([facility]) Social History Tobacco Use Types [...] - Temperature - - Respiratory Rate 16 06/23/2023 0625 EDT Oxygen Saturation - - Inhaled Oxygen Concentration - - Weight 87.1 kg (192 lb 0.3 oz) 06/23/2023 0622 E DT Height - - Body Mass Index 27.95 01/25/2023 0751 EDT documented in this encounter Miscellaneous Notes * Flowsheet Note - Marcela Cox RN - 06/23/2023 1133 EDT 06/23/23 1057 Post-Hemodialysis Assessment Total Blood Processed (L) 90.31 Liters On Line Clearance: spKt/V 1.46 spKt/V Dialyzer Clearance Lightly streaked Treatment UFR (ml:kg:hr) 6.03 ml:kg:hr Fluid Removed (L) 1.6 L Post-Dialysis Scale Weight 86 kg (189 lb 9.5 oz) Wheelchair Weight 0 kg (0 lb) Prosthesis Weight 0 kg (0 lb) Post-Treatment Weight (kg) 86 Treatment Weight Change (kg) 2.1 kg Day Target Weight (kg) 87 Post Sitting/Lying BP 154/81 Post Sitting/Lying pulse 71 Post Standing BP 126/73 Post Standing Pulse 75 Temp 36.6 ??C (97.9 ??F) Temp src Temporal Post access assessment AVF/AFG Hemostasis achieved Yes Note 10 min hold Orientation Alert and Oriented x3 Yes Time Yes Place Yes Person Yes Cooperative Yes Disoriented No Discharge Ambulation Methods Ambulatory without assistance Wrap up items Patient Response to Treatment Tolerated tx well. Removed 1.6L UF goal without difficulty. Comments No issues during tx, no concerns voiced post tx. documented in this encounter Plan of Treatment Upcoming Encounters Date Type Department Care Team (Late st Contact Info) Description 12/06/2024 6:45 EST Treatment [facility] [address] [place], [place] [phone] Carlota Jin MD [address] [place] [phone] 12/08/2024 6:45 EST Treatment [facility] [address] [place], [place] [phone] Carlota Jin MD [address] [place] [address], [facility] 2 [place] [phone] 12/11/2024 6:45 EST Treatment [facility] [place] [address] [place], [place] [id number] Carlota Jin MD 1 [facility], [facility] [address] [place] [phone] 12/13/2024 6:45 EST Treatment [facility] [place] [address] [place], [place] [id number] Carlota Jin MD 1 [facility], [facility] 2 [place] [phone] 12/15/2024 6:45 EST Treatment [facility] [place] [address] [place] [id number] Carlota Jin MD 1 [facility], [facility] 2 [place] [phone] 12/18/2024 6:45 EST Treatment [facility] [place] [address] [place], [place] [id number] Carlota Jin MD 1 [facility], [facility] 2 [place] [phone] 12/20/2024 6:45 EST Treatment [facility] [place] [address] [place], [place] [id number] Carlota Jin MD 1 [facility], [facility] 2 [place] [phone] 12/22/2024 6:45 EST Treatment [facility] [place] [address] [place], [place] [id number] Carlota Jin MD 1 [facility], [facility] 2 [place] [phone] 12/25/2024 6:45 EST Treatment [facility] [place] [address] [place], [place] [id number] Carlota Jin MD 1 [facility], [facility] 2 [place] [phone] 12/27/2024 6:45 EST Treatment [facility] [place] [address] [place], [place] [id number] Carlota Jin MD 1 [facility], [facility] 2 [place] [phone] 12/29/2024 6:45 EST Treatment [facility] [place] [address] [place], [place] [id number] Carlota Jin MD [address] [phone] 01/01/2025 6:45 EDT Treatment [facility] [place] [address] [place], [place] [id number] Carlota Jin MD 1 [facility][1] 2 [place] [phone] 01/03/2025 6:45 EDT Treatment [facility] [place] [address] [place], [place] [id number] Carlota Jin MD 1 [facility], [facility] 2 [place] [phone] 01/05/2025 6:45 EDT Treatment [facility] [place] [address] [place], [place] [id number] Carlota Jin MD 1 [facility], [facility] 2 [place] [phone] 01/08/2025 6:45 EDT Treatment [facility] [place] [address] [place], [place] [id number] Carlota Jin MD 1 [facility], [facility] 2 [place] [phone] 01/10/2025 6:45 EDT Treatment [facility] [place] [address] [place], [place] [id number] Carlota Jin MD 1 [facility], [facility] 2 [place] [phone] 01/12/2025 6:45 EDT Treatment [facility] [place] [address] [place] [id number] Carlota Jin MD 1 [facility], [facility] 2 [place] [phone] 01/15/2025 6:45 EDT Treatment [facility] [place] [address] [place], [place] [id number] Carlota Jin MD 1 [facility], [facility] 2 [place] [phone] 01/17/2025 6:45 EDT Treatment [facility] [place] [address] [place], [place] [id number] Carlota Jin MD 1 [facility], [facility] 2 [place] [phone] 01/19/2025 6:45 EDT Treatment [facility] [place] [address] [place], [place] [id number] Carlota Jin MD [address] [place] [address], [address] [phone] 01/22/2025 6:45 EDT Treatment [facility] [place] [address] [place], [place] [id number] Carlota Jin MD [address] [place] [address], [address] [phone] 01/24/2025 6:45 EDT Treatment [facility] [place] [address] [place], [place] [id number] Carlota Jin MD [address] [place] [address], [facility] 2 [place] [phone] 01/26/2025 6:45 EDT Treatment [facility] [place] [address] [place], [place] [id number] Carlota Jin MD [address] [place] [address], [facility] 2 [place] [phone] 01/29/2025 6:45 EDT Treatment [facility] [place] [address] [place], [place] [id number] Carlota Jin MD 1 [facility], Level [address] [place] [phone] 01/31/2025 6:45 EDT Treatment [facility] [place] [address] [place], [place] [id number] Carlota Jin MD 1 [facility], [facility] 2 [place] [phone] 02/02/2025 6:45 EDT Treatment [facility] [address] [place], [place] [id number] Carlota Jin MD 1 [facility], [facility] 2 [place] [phone] 02/05/2025 6:45 EDT Treatment [facility] [place] [address] [place] [id number] Carlota Jin MD 1 [facility], [facility] 2 [place] [phone] 02/07/2025 6:45 EDT Treatment [facility] [address] [place], [place] [id number] Carlota Jin MD 1 [facility], [facility] 2 [place] [phone] 02/09/2025 6:45 EDT Treatment [facility] [address] [place], [place] [id number] Carlota iJn MD 1 [facility], [facility] 2 [place] [phone] 02/12/2025 6:45 EDT Treatment [facility] [place] [address] [place], [place] [id number] Carlota Jin MD 1 [facility], [address] [phone] 02/14/2025 6:45 EDT Treatment [facility] [place] [address] [place], [place] [id number] Carlota Jin MD [address] [place] [phone] 02/16/2025 6:45 EDT Treatment [facility] [place] [address] [place], [place] [id number] Carlota Jin MD [address] [place] [phone] 02/19/2025 6:45 EDT Treatment [facility] [place] [address] [place], [place] [id number] Carlota Jin MD [address] [place] [phone] 02/21/2025 6:45 EDT Treatment [facility] [place] [address] [place], [place] [id number] Carlota Jin MD [address] [phone] documented as of this encounter Procedures Procedure Name Priority Date/Time Associated Diagnosis Comments COMPLETE BLOOD COUNT Routine 06/23/2023 6:38 EDT ESRD (end stage renal disease) ([facility]) HEMODIALYSIS Routine 06/23/2023 6:25 EDT ESRD (end stage renal disease) ([facility]) documented in this encounter Results * (ABNORMAL) COMPLETE BLOOD COUNT (06/23/2023 6:38 EDT) WBC 7.57 4.00 - 10.40 K/cmm 06/23/2023 21:44 T [facility] RBC 3.39(L) 4.36 - 5.78 M/cmm 06/23/2023 21:44 [facility] Hemoglobin 10.8(L) 13.8 - 17.3 g/dL 06/23/2023 21:44 [facility] HCT 32.3(L) 39.5 - 50.2 % 06/23/2023 21:44 [facility] MCV 95 81 - 95 fL 06/23/2023 21:44 [facility] MCH 31.9 27.6 - 33.0 pg 06/23/2023 21:44 [facility] MCHC 33.4 32.8 - 36.4 g/dL 06/23/2023 21:44 [facility] RDW-CV 12.2 <14.2 % 06/23/2023 21:44 [facility] RDW-SD 42.8 <46.0 fl 06/23/2023 21:44 [facility] PLT 262 141 - 377 K/cmm 06/23/2023 21:44 [facility] MPV 11.7 9.5 - 12.7 fL 06/23/2023 21:44 [facility] Blood VENOUS BLOOD / Unknown Venipuncture / Unknown 06/23/2023 6:38 EDT 06/23/2023 6:38 EDT us Carlota Jin MD HEMATOLOGY & PF4 ORDERABL ES Final Result [facility] [address] [place] [address] documented in this encounter Visit Diagnoses Diagnosis ESRD (end stage renal disease) ([facility] Primary End stage renal disease Anemia of chronic renal failure, unspecified CKD stage Hypoalbuminemia Other disorders of plasma protein metabolism Secondary hyperparathyroidism ([facility]) Secondary hyperparathyroidism (of renal origin) documented in this encounter Administered Medications Inactive Administered Medications - up to 3 most recent administrations Medication Order MAR Action Action Date Dose Rate Site calcium carbonate (TUMS) tablet 500 mg (200 mg elemental calcium) 2 Tablet 2 Tablet, oral, ONCE IN DIALYSIS, 1 dose, On Wed06/23/23 at 0645, Routine, DialysisIndications:ESRD (end stage renal disease) ([facility]),Secondary hyperparathyroidism ([facility]) Given 06/23/2023 6:52 EDT 2 Tablets epoetin ken (EPOGEN) 20,000 unit/2 mL injection 500 Units 500 Units, intravenous, ONCE IN DIALYSIS, 1 dose, On Wed06/23/23 at 0645, Routine, DialysisIndications:ESRD (end stage renal disease) ([facility]),Anemia of chronic renal failure, unspecified CKD stage Given 06/23/2023 6:52 EDT 500 Units heparin injection 9,000 Units 9,000 Units, intravenous, ONCE IN DIALYSIS, 1 dose, On Wed06/23/23 at 0645, Routine, Dialysis, Now x1 bolus 4500 units to be given at the beginning of dialysis 1500 units/hour to be given over the course of dialysis (9000 units total). Stop 1 hour prior to end of treatment. To be administered per Policy [id number].Indications:ESRD (end stage renal disease) ([facility]) Given 06/23/2023 6:45 EDT 9,000 Units LiquaCel liquid protein liquid 30 mL 30 mL, oral, ONCE IN DIALYSIS, 1 dose, On Wed06/23/23 at 0645, RoutineIndications:Hypoalbuminemi a,ESRD (end stage renal disease) ([facility]) Given 06/23/2023 6:53 EDT 30 mL documented in this encounter Orders Dialysis Count Last Ordered Date First Orde red Date HEMODIALYSIS 1 06/23/2023 documented in this encounter Care Teams Steam Trap Man Relationship Specialty Start Date End Date Adeola Villegas APRN [address] [place] [address] PCP - General 10/12/16 07/06/23 documented as of this encounter
--- OUTSIDE RECORDS SUMMARY | 2024-12-05 12:21 | XMS_ITS | Encounter Summary ---
Author Organization [facility] Address [address] [place] [address] Care Team Providers Care Utilization Review Specialist Name Role Phone Ken Greer MD Primary Care Provider [phone] Reason for Referral * Radiology Services (Routine/Next Available) - Authorization Not Required Specialty Diagnoses / Procedures Referred By Nader gardiner Referred To Contact Diagnoses Other specified complication of vascular prosthetic devices, implants and grafts, initial encounter ([facility]) Procedures IR AVF (DIAGNOSTIC/PLASTY) LEFT ME TRLUML BALO ANGIOP CTR DIALYSIS SEG W/IMG S&I Carlota Jin MD Phone: tel: fax: [facility] Referral ID Status Reason Start Date Expiration Date Visits Requested Visits Authorized [id number] Authorization Not Required 07/07/2023 1 1 Encounter Details Date Type Department Care Team (Latest Contact Info) Description 07/07/2023 6:45 EDT Treatment [facility] [place] [address] [place], [place] [phone] Carlota Jin MD 1 [facility], Level 2 [place] [phone] ESRD (end stage renal disease) ([facility]) (Primary Dx); Anemia of chronic renal failure, unspecified CKD stage; Hypoalbuminemia; Secondary hyperparathyroidism ([facility]); Other specified complication of vascular prosthetic devices, implants and grafts, initial encounter ([facility]) Social History Tobacco Use Types [...] - Temperature - - Respiratory Rate 16 07/07/2023 0618 EDT Oxygen Saturation - - Inhaled Oxygen Concentration - - Weight 88.3 kg (194 lb 10.7 oz) 07/07/2023 0618 EDT Height - - Body Mass Index 28.34 01/25/2023 0751 EDT documented in this encounter Miscellaneous Notes * Flowsheet Note - Marcela Cox RN - 07/07/2023 1123 EDT 07/07/23 1108 Post-Hemodialysis Assessment Total Blood Processed (L) 89.09 Liters On Line Clearance: spKt/V 1.5 spKt/V Dialyzer Clearance Lightly streaked Treatment UFR (ml:kg:hr) 5.43 ml:kg:hr Critline refill Not done Fluid Removed (L) 1.8 L Post-Dialysis Scale Weight 86.4 kg (190 lb 7.6 oz) Wheelchair Weight 0 kg (0 lb) Prosthesis Weight 0 kg (0 lb) Post-Treatment Weight (kg) 86.4 Treatment Weight Change (kg) 1.9 kg Day Target Weight (kg) 87 Post Sitting/Lying BP (!) 177/94 Post Sitting/Lying pulse 78 Post Standing BP 163/85 Post Standing Pulse 93 Temp 36.7 ??C (98.1 ??F) Temp src [...] during tx, no concerns voiced post tx. vicky for fistulogram tomorrow am at 9am toevaluate LUE swelling documented in this encounter Plan of Treatment Upcoming Encounters Date Type Department Care Team (Late st Contact Info) Description 12/06/2024 6:45 EST Treatment [facility] [place] [address] [place], [place] [phone] Carlota Jin MD [address] [phone] 12/08/2024 6:45 EST Treatment [facility] [address] [place], [place] [phone] Carlota Jin MD [address] [place] [phone] 12/11/2024 6:45 EST [facility] [address] [place], [place] [phone] Carlota Jin MD [address] [place] [phone] 12/13/2024 6:45 EST Treatment [facility] [address] [place], [place] [phone] Carlota Jin MD [address] [place] [phone] 12/15/2024 6:45 EST Treatment [facility] [address] [place], [place] [phone] Carlota Jin MD [address] [place] [address] 2 [place] [phone] 12/18/2024 6:45 EST Treatment [facility] [place] [address] [place], [place] [phone] Carlota Jin MD 1 [facility] 2 [place] [phone] 12/20/2024 6:45 EST Treatment [facility] [address] [place], [place] [phone] Carlota Jin MD 1 [facility], [facility] 2 [place] [phone] 12/22/2024 6:45 EST [facility] [address] [place], [place] [phone] Carlota Jin MD 1 [facility], [facility] 2 [place] [phone] 12/25/2024 6:45 EST [facility] [address] [place] [address] Carlota Jin MD 1 [facility], [facility] 2 [place] [phone] 12/27/2024 6:45 EST Treatment [facility] [address] [place], [place] [phone] Carlota Jin MD 1 [facility], [facility] 2 [place] [phone] 12/29/2024 6:45 EST Treatment [facility] [place] [address] [place], [place] [phone] Carlota Jin MD 1 [facility], [facility] 2 [place] [phone] 01/01/2025 6:45 EDT Treatment [facility] [place] [address] [place], [place] [phone] Carlota Jin MD 1 [facility], [facility] 2 [place] [phone] 01/03/2025 6:45 EDT Treatment [facility] [place] [address] [place], [place] [phone] Carlota Jin MD 1 [facility], [address] [phone] 01/05/2025 6:45 EDT Treatment [facility] [place] [address] [place], [place] [phone] Carlota Jin MD 1 [facility], [address] [phone] 01/08/2025 6:45 EDT Treatment [facility] [place] [address] [place], [place] [phone] Carlota Jin MD 1 [facility], [facility] 2 [place] [phone] 01/10/2025 6:45 EDT Treatment [facility] [place] [address] [place], [place] [phone] Carlota Jin MD 1 [facility], Level [address] [place] [phone] 01/12/2025 6:45 EDT Treatment [facility] [place] [address] [place], [place] [phone] Carlota Jin MD 1 [facility], [facility] 2 [place] [phone] 01/15/2025 6:45 EDT Treatment [facility] [place] [address] [place], [place] [phone] Carlota Jin MD 1 [facility], [facility] 2 [place] [phone] 01/17/2025 6:45 EDT Treatment [facility] [place] [address] [place], [place] [phone] Carlota Jin MD 1 [facility], [facility] 2 [place] [phone] 01/19/2025 6:45 EDT Treatment [facility] [place] [address] [place] [address] Carlota Jin MD 1 [facility], [facility] 2 [place] [phone] 01/22/2025 6:45 EDT Treatment [facility] [place] [address] [place], [place] [phone] Carlota Jin MD 1 [facility], [facility] 2 [place] [phone] 01/24/2025 6:45 EDT Treatment [facility] [place] [address] [place], [place] [phone] Carlota Jin MD 1 [facility], [facility] 2 [place] [phone] 01/26/2025 6:45 EDT Treatment [facility] [place] [address] [place], [place] [phone] Carlota Jin MD 1 [facility], [facility] 2 [place] [phone] 01/29/2025 6:45 EDT Treatment [facility] [place] [address] [place] [address] Carlota Jin MD [address] [place] [address], [facility] 2 [place] [phone] 01/31/2025 6:45 EDT Treatment [facility] [place] [address] [place], [place] [phone] Carlota Jin MD [address] [place] [address], [facility] 2 [place] [phone] 02/02/2025 6:45 EDT Treatment [facility] [place] [address] [place], [place] [phone] Carlota Jin MD 1 [facility], [facility] 2 [place] [phone] 02/05/2025 6:45 EDT Treatment [facility] [place] [address] [place], [place] [phone] Carlota Jin MD 1 [facility], [facility] 2 [place] [phone] 02/07/2025 6:45 EDT Treatment [facility] [place] [address] [place], [place] [phone] Carlota Jin MD 1 [facility], [facility] 2 [place] [phone] 02/09/2025 6:45 EDT Treatment [facility] [place] [address] [place], [place] [phone] Carlota Jin MD 1 [facility], [facility] 2 [place] [phone] 02/12/2025 6:45 EDT Treatment [facility] [place] [address] [place], [place] [phone] Carlota Jin MD 1 [facility], [facility] 2 [place] [phone] 02/14/2025 6:45 EDT Treatment [facility] [place] [address] [place], [place] [phone] Carlota Jin MD 1 [facility], [facility] 2 [place] [phone] 02/16/2025 6:45 EDT Treatment [facility] [place] [address] [place], [place] [phone] Carlota Jin MD 1 [facility], [facility] 2 [place] [phone] 02/19/2025 6:45 EDT Treatment [facility] [place] [address] [place], [place] [phone] Carlota Jin MD 1 [facility], Level [address] [place] [phone] 02/21/2025 6:45 EDT Treatment [facility] [place] [address] [place], [place] [phone] Carlota Jin MD 1 [facility], Level [address] [place] [phone] documented as of this encounter Procedures Procedure Name Priority Date/Time Associated Diagnosis Comments COMPLETE BLOOD COUNT Routine 07/07/2023 6:38 EDT ESRD (end stage renal disease) ([facility]) HEMODIALYSIS Routine 07/07/2023 6:18 EDT ESRD (end stage renal disease) ([facility]) documented in this encounter Results * IR AVF (DIAGNOSTIC/PLASTY) LEFT (07/08/2023 11:40 EDT) Anatomical Region Laterality Modality Left X-Ray Angiograph y 07/09/2023 9:46 EDT Impressions 07/09/2023 9:46 EDT 1. Left upper extremity fistulogram demonstrating high-grade multifocal stenosis of the central outflow cephalic vein. 2. Improved lumen and flow after 8 mm angioplasty of the stenotic segment. [id number] Narrative 07/09/2023 9:46 EDT EXAMINATION: Fistulogram and [...] exchanged over a guidewire for a 6 Georgian bright tip sheath. A catheter guidewire combination [...] was exchanged over a guidewirefor a 6 Georgian bright tip sheath. A catheter guidewire combination [...] after 8 mm angioplasty of the stenoticsegment. [id number] us Carlota Jin MD [facility] IR ORDERABLES Final R esult * (ABNORMAL) COMPLETE BLOOD COUNT (07/07/2023 6:38 EDT) WBC 7.20 4.00 - 10.40 K/cmm 07/07/2023 21:54 EDT [facility] RBC 3.28(L) 4.36 - 5.78 M/cmm 07/07/2023 21:54 EDT [facility] Hemoglobin 10.4(L) 13.8 - 17.3 g/dL 07/07/2023 21:54 T [facility] HCT 31.2(L) 39.5 - 50.2 % 07/07/2023 21:54 EDT [facility] MCV 95 81 - 95 fL 07/07/2023 21:54 EDT [facility] MCH 31.7 27.6 - 33.0 pg 07/07/2023 21:54 EDT [facility] MCHC 33.3 32.8 - 36.4 g/dL 07/07/2023 21:54 EDT [facility] RDW-CV 12.1 <14.2 % 07/07/2023 21:54 T [facility] RDW-SD 42.0 <46.0 fl 07/07/2023 21:54 T [facility] PLT 275 141 - 377 K/cmm 07/07/2023 21:54 T [facility] MPV 11.6 9.5 - 12.7 fL 07/07/2023 21:54 T [facility] Blood VENOUS BLOOD / Unknown Venipuncture / Unknown 07/07/2023 6:38 EDT 07/07/2023 6:38 EDT us Carlota Jin MD HEMATOLOGY & PF4 ORDERABL ES Final Result [facility] [address] [place] [address] documented in this encounter Visit Diagnoses Diagnosis ESRD (end stage renal disease) ([facility])- Primary End stage renal disease Anemia of chronic renal failure, unspecified CKD stage Hypoalbuminemia Other disorders of plasma protein metabolism Secondary hyperparathyroidism ([facility]) Secondary hyperparathyroidism (of renal origin) Other specified complication of vascular prosthetic devices, implants and grafts, initial encounter ([facility]) Other specified complication of vascular prosthetic devices, implants and grafts, initial encounter ([facility]) documented in this encounter Administered Medications Inactive Administered Medications - up to 3 most recent administrations Medication Order MAR Action Action Date Dose Rate Site calcium carbonate (TUMS) tablet 500 mg (200 mg elemental calcium) 2 Tablet 2 Tablet, oral, ONCE IN DIALYSIS, 1 dose, On Wed07/07/23 at 0645, Routine, DialysisIndications:ESRD (end stage renal disease) ([facility]),Secondary hyperparathyroidism ([facility]) Given 07/07/2023 6:42 EDT 2 Tablets epoetin ken (EPOGEN) 20,000 unit/2 mL injection 500 Units 500 Units, intravenous, ONCE IN DIALYSIS, 1 dose, On Wed07/07/23 at 0645, Routine, DialysisIndications:ESRD (end stage renal disease) ([facility]),Anemia of chronic renal failure, unspecified CKD stage Given 07/07/2023 6:42 EDT 500 Units heparin injection 9,000 Units 9,000 Units, intravenous, ONCE IN DIALYSIS, 1 dose, On Wed07/07/23 at 0645, Routine, Dialysis, Now x1 bolus 4500 units to be given at the beginning of dialysis 1500 units/hour to be given over the course of dialysis (9000 units total). Stop 1 hour prior to end of treatment. To be administered per Policy [id number].Indications:ESRD (end stage renal disease) ([facility]) Given 07/07/2023 6:42 EDT 9,000 Units LiquaCel liquid protein liquid 30 mL 30 mL, oral, ONCE IN DIALYSIS, 1 dose, On Wed07/07/23 at 0645, RoutineIndications:Hypoalbuminemi a,ESRD (end stage renal disease) ([facility]) Given 07/07/2023 6:42 EDT 30 mL documented in this encounter Orders Dialysis Count Last Ordered Date First Orde red Date HEMODIALYSIS 1 07/07/2023 documented in this encounter Care Teams Utilization Review Specialist Relationship Specialty Start Date End Date Ken [place] [address] [place] [address] PCP - General 07/07/23 documented as of this encounter
--- OUTSIDE RECORDS SUMMARY | 2024-12-05 12:21 | XMS_ITS | Encounter Summary ---
Author Organization [facility] Address [address] [place] [address] Care Team Providers Care Insurance Analyst Name Role Phone Adeola Villegas APRN Primary Care Provider [phone] Encounter Details Date Type Department Care Team (Latest Contact Info) Description 06/25/2023 6:45 EDT Treatment [place] [address] [place] [address] Carlota Jin MD 1 [facility], Level 2 [place] [address] ESRD (end stage renal disease) ([facility]) (Primary Dx); Anemia of chronic renal failure, unspecified CKD stage; Hypoalbuminemia; Secondary hyperparathyroidism ([facility]) Social History Tobacco Use Types Packs/Day [...] - Temperature - - Respiratory Rate 16 06/25/2023 0635 EDT Oxygen Saturation - - Inhaled Oxygen Concentration - - Weight 88.2 kg (194 lb 7.1 oz) 06/25/2023 0635 E DT Height - - Body Mass Index 28.3 01/25/2023 0751 EDT documented in this encounter Miscellaneous Notes * Flowsheet Note - Marcela Cox RN - 06/25/2023 1329 EDT 06/25/23 1058 Post-Hemodialysis Assessment Total Blood Processed (L) 89.77 Liters On Line Clearance: spKt/V 1.47 spKt/V Dialyzer Clearance Lightly streaked Treatment UFR (ml:kg:hr) 4.77 ml:kg:hr Fluid Removed (L) 2 L Post-Dialysis Scale Weight 86.5 kg (190 lb 11.2 oz) Wheelchair Weight 0 kg (0 lb) Prosthesis Weight 0 kg (0 lb) Post-Treatment Weight (kg) 86.5 Treatment Weight Change (kg) 1.7 kg Day Target Weight (kg) 86.7 Post Sitting/Lying BP (!) 169/91 Post Sitting/Lying pulse 64 Post Standing BP 128/74 Post Standing Pulse 68 Temp 36.1 ??C (97 ??F) Temp [...] EST Treatment [facility] [place] [address] [place], [place] [address] Carlota Jin MD 1 [facility], Level [address] [place] [address] 12/08/2024 6:45 EST Treatment [facility] [address] [place] [address] Carlota Jin MD 1 [facility], [facility] 2 [place] [phone] 12/11/2024 6:45 EST Treatment [facility] [place] [address] [place], [place] [phone] Carlota Jin MD 1 [facility], [facility] 2 [place] [phone] 12/13/2024 6:45 EST Treatment [facility] [place] [address] [place], [place] [id number] Carlota Jin MD 1 [facility], [facility] 2 [place] [phone] 12/15/2024 6:45 EST Treatment [facility] [place] [address] [place], [place] [id number] Carlota Jin MD 1 [facility], [facility] 2 [place] [phone] 12/18/2024 6:45 EST Treatment [facility] [address] [place], [place] [phone] Carlota Jin MD 1 [facility], [facility] 2 [place] [phone] 12/20/2024 6:45 EST Treatment [facility] [address] [place], [place] [phone] Carlota Jin MD 1 [facility], [facility] 2 [place] [phone] 12/22/2024 6:45 EST Treatment [facility] [place] [address] [place], [place] [phone] Carlota Jin MD 1 [facility], [facility] 2 [place] [phone] 12/25/2024 6:45 EST Treatment [facility] [place] [address] [place], [place] [phone] Carlota Jin MD 1 [facility], [facility] 2 [place] [phone] 12/27/2024 6:45 EST Treatment [facility] [place] [address] [place], [place] [phone] Carlota Jin MD 1 [facility], [facility] 2 [place] [phone] 12/29/2024 6:45 EST Treatment [facility] [place] [address] [place], [place] [phone] Carlota Jin MD 1 [facility], [facility] 2 [place] [phone] 01/01/2025 6:45 EDT Treatment [facility] [place] [address] [place], [place] [phone] Carlota Jin MD 1 [facility], [facility] 2 [place] [phone] 01/03/2025 6:45 EDT Treatment [facility] [place] [address] [place], [place] [phone] Carlota Jin MD [address] [facility], Level [address] [place] [phone] 01/05/2025 6:45 EDT Treatment [facility] [place] [address] [place], [place] [address] Carlota Jin MD 1 [facility], [facility] 2 [place] [phone] 01/08/2025 6:45 EDT Treatment [facility] [place] [address] [place], [place] [phone] Cralota Jin MD 1 [facility], [facility] 2 [place] [phone] 01/10/2025 6:45 EDT Treatment [facility] [place] [address] [place], [place] [phone] Carlota Jin MD [address] [facility], [facility] 2 [place] [phone] 01/12/2025 6:45 EDT Treatment [facility] [place] [address] [place] [address] Carlota Jin MD [address] [facility], [facility] 2 [place] [phone] 01/15/2025 6:45 EDT Treatment [facility] [place] [address] [place], [place] [address] Carlota Jin MD 1 [facility], [facility] 2 [place] [phone] 01/17/2025 6:45 EDT Treatment [facility] [place] [address] [place], [place] [phone] Carlota Jin MD 1 [facility], [facility] 2 [place] [phone] 01/19/2025 6:45 EDT Treatment [facility] [place] [address] [place], [place] [id number] Carlota Jin MD 1 [facility], [facility] 2 [place] [phone] 01/22/2025 6:45 EDT Treatment [facility] [place] [address] [place], [place] [phone] Carlota Jin MD [address] [place] [address], [facility] 2 [place] [phone] 01/24/2025 6:45 EDT Treatment [facility] [place] [address] [place], [place] [phone] Carlota Jin MD [address] [place] [address], [facility] 2 [place] [phone] 01/26/2025 6:45 EDT Treatment [facility] [place] [address] [place], [place] [phone] Carlota Jin MD 1 [facility], [facility] 2 [place] [phone] 01/29/2025 6:45 EDT Treatment [facility] [place] [address] [place], [place] [phone] Carlota Jin MD [address] [facility], [facility] 2 [place] [phone] 01/31/2025 6:45 EDT Treatment [facility] [place] [address] [place], [place] [address] Carlota Jin MD 1 [facility], [facility] 2 [place] [phone] 02/02/2025 6:45 EDT Treatment [facility] [place] [address] [place], [place] [phone] Carlota Jin MD 1 [facility], [facility] 2 [place] [phone] 02/05/2025 6:45 EDT Treatment [facility] [place] [address] [place], [place] [phone] Carlota Jin MD 1 [facility], [facility] 2 [place] [phone] 02/07/2025 6:45 EDT Treatment [facility] [place] [address] [place], [place] [id number] Carlota Jin MD 1 [facility], [facility] 2 [place] [phone] 02/09/2025 6:45 EDT Treatment [facility] [place] [address] [place], [place] [phone] Carlota Jin MD [address] [facility], [facility] 2 [place] [phone] 02/12/2025 6:45 EDT Treatment [facility] [place] [address] [place], [place] [id number] Carlota Jin MD 1 [facility], [address] [phone] 02/14/2025 6:45 EDT Treatment [facility] [place] [address] [place], [place] [phone] Carlota Jin MD 1 [facility], [address] [phone] 02/16/2025 6:45 EDT Treatment [facility] [place] [address] [place], [place] [phone] Carlota Jin MD [address] [phone] 02/19/2025 6:45 EDT Treatment [facility] [place] [address] [place], [place] [phone] Carlota Jin MD 1 [facility], [address] [phone] 02/21/2025 6:45 EDT Treatment [facility] [address] [place], [place] [phone] Carlota Jin MD 1 [facility], [address] [phone] documented as of this encounter Procedures Procedure Name Priority Date/Time Associated Diagnosis Comments HEMODIALYSIS Routine 06/25/2023 6:35 EDT ESRD (end stage renal disease) ([facility]) documented in this encounter Visit Diagnoses Diagnosis ESRD (end stage renal disease) ([facility])- Primary End stage renal disease Anemia of chronic renal failure, unspecified CKD stage Hypoalbuminemia Other disorders of plasma protein metabolism Secondary hyperparathyroidism ([facility]) Secondary hyperparathyroidism (of renal origin) documented in this encounter Administered Medications Inactive Administered Medications - up to 3 most recent administrations Medication Order MAR Action Action Date Dose Rate Site calcium carbonate (TUMS) tablet 500 mg (200 mg elemental calcium) 2 Tablet 2 Tablet, oral, ONCE IN DIALYSIS, 1 dose, On Wed06/25/23 at 0700, Routine, DialysisIndications:ESRD (end stage renal disease) ([facility]),Secondary hyperparathyroidism ([facility]) Given 06/25/2023 6:58 EDT 2 Tablets epoetin ken (EPOGEN) 20,000 unit/2 mL injection 500 Units 500 Units, intravenous, ONCE IN DIALYSIS, 1 dose, On Wed06/25/23 at 0700, Routine, DialysisIndications:ESRD (end stage renal disease) ([facility]),Anemia of chronic renal failure, unspecified CKD stage Given 06/25/2023 6:58 EDT 500 Units heparin injection 9,000 Units 9,000 Units, intravenous, ONCE IN DIALYSIS, 1 dose, On Wed06/25/23 at 0700, Routine, Dialysis, Now x1 bolus 4500 units to be given at the beginning of dialysis 1500 units/hour to be given over the course of dialysis (9000 units total). Stop 1 hour prior to end of treatment. To be administered per Policy [id number].Indications:ESRD (end stage renal disease) ([facility]) Given 06/25/2023 6:46 EDT 9,000 Units LiquaCel liquid protein liquid 30 mL 30 mL, oral, ONCE IN DIALYSIS, 1 dose, On Wed06/25/23 at 0700, RoutineIndications:Hypoalbuminemi a,ESRD (end stage renal disease) ([facility]) Given 06/25/2023 6:58 EDT 30 mL documented in this encounter Orders Dialysis Count Last Ordered Date First Orde red Date HEMODIALYSIS 1 06/25/2023 documented in this encounter Care Teams Insurance Analyst Relationship Specialty Start Date End Date Adeola Villegas APRN [facility] [address] [place] [address] PCP - General 10/12/16 07/06/23 documented as of this encounter
--- OUTSIDE RECORDS SUMMARY | 2024-12-05 12:22 | XMS_ITS | Encounter Summary ---
Author Organization [facility] Address [address] [place] [address] Care Team Providers Care It Infrastructure Architect Name Role Phone Adeola Villegas APRN Primary Care Provider [phone] Encounter Details Date Type Department Care Team (Latest Contact Info) Description 05/28/2023 6:45 EDT Treatment [facility] [address] [place] [address] Carlota Jin MD 1 [facility], Level [address] [place] [address] ESRD (end stage renal disease) ([facility]) (Primary Dx); Anemia of chronic renal failure, unspecified CKD stage; Hypoalbuminemia; Secondary hyperparathyroidism ([facility]) Social History Tobacco Use Types Packs/Day [...] - Temperature - - Respiratory Rate 20 05/28/2023 0633 EDT Oxygen Saturation - - Inhaled Oxygen Concentration - - Weight 87.7 kg (193 lb 5.5 oz) 05/28/2023 0631 E DT Height - - Body Mass Index 28.14 01/25/2023 0751 EDT documented in this encounter Miscellaneous Notes * Flowsheet Note - Teto Ribeiro RN - 05/28/2023 1538 EDT 05/28/23 1117 Post-Hemodialysis Assessment Total Blood Processed (L) 90.04 Liters On Line Clearance: spKt/V 1.51 spKt/V Dialyzer Clearance Lightly streaked Treatment UFR (ml:kg:hr) 1.14 ml:kg:hr Critline refill Not done Fluid Removed (L) 1.5 L Post-Dialysis Scale Weight 87.3 kg (192 lb 7.4 oz) Wheelchair Weight 0 kg (0 lb) Prosthesis Weight 0 kg (0 lb) Post-Treatment Weight (kg) 87.3 Treatment Weight Change (kg) 0.4 kg Day Target Weight (kg) 86.7 Post Sitting/Lying BP (!) 171/92 Post Sitting/Lying pulse 69 Post Standing BP 145/73 Post Standing Pulse 74 Temp 36.1 ??C (97 ??F) Temp src Temporal Post access assessment AVF/AFG Hemostasis achieved Yes Orientation Alert and Oriented x3 Yes Time Yes Place Yes Person Yes Cooperative Yes Disoriented No Discharge Ambulation Methods Ambulatory without assistance Wrap up items Patient Response to Treatment [email or web address]. tx well, removed 1.5L Comments No complaints, no s/s of distress noted, VSS upon d/c documented in this encounter Plan of Treatment Upcoming Encounters Date Type Department Care Team (Late st Contact Info) Description 12/06/2024 6:45 EST [facility] [address] [place], [place] [phone] Carlota Jin MD 1 [facility], [address] [place] [address] 12/08/2024 6:45 EST Treatment [facility] [address] [place], [place] [phone] Carlota Jin MD 1 [facility], [address] [place] [phone] 12/11/2024 6:45 EST Treatment [facility] [place] [address] [place], [place] [address] Carlota Jin MD 1 [facility], [facility] 2 [place] [phone] 12/13/2024 6:45 EST Treatment [facility] [place] [address] [place], [place] [phone] Carlota Jin MD 1 [facility], [facility] 2 [place] [phone] 12/15/2024 6:45 EST Treatment [facility] [place] [address] [place] [address] Carlota Jin MD 1 [facility], [facility] 2 [place] [phone] 12/18/2024 6:45 EST Treatment [facility] [address] [place] [address] Carlota Jin MD 1 [facility], [facility] 2 [place] [phone] 12/20/2024 6:45 EST Treatment [facility] [place] [address] [place], [place] [phone] Carlota Jin MD 1 [facility], [facility] 2 [place] [phone] 12/22/2024 6:45 EST Treatment [facility] [place] [address] [place], [place] [phone] Carlota Jin MD 1 [facility], [facility] 2 [place] [phone] 12/25/2024 6:45 EST Treatment [facility] [place] [address] [place], [place] [phone] Carlota Jin MD 1 [facility], [facility] 2 [place] [phone] 12/27/2024 6:45 EST Treatment [facility] [place] [address] [place], [place] [phone] Carlota Jin MD 1 [facility], [facility] 2 [place] [phone] 12/29/2024 6:45 EST Treatment [facility] [place] [address] [place], [place] [phone] Carlota Jin MD 1 [facility], [facility] 2 [place] [phone] 01/01/2025 6:45 EDT Treatment [facility] [place] [address] [place], [place] [phone] Carlota Jin MD 1 [facility], [facility] 2 [place] [phone] 01/03/2025 6:45 EDT Treatment [facility] [place] [address] [place], [place] [phone] Carlota Jin MD 1 [facility], [facility] 2 [place] [phone] 01/05/2025 6:45 EDT Treatment [facility] [place] [address] [place], [place] [phone] Carlota Jin MD 1 [facility], [facility] 2 [place] [phone] 01/08/2025 6:45 EDT Treatment [facility] [place] [address] [place], [place] [id number] Carlota Jin MD 1 [facility], [facility] 2 [place] [phone] 01/10/2025 6:45 EDT Treatment [facility] [place] [address] [place] [address] Carlota Jin MD 1 [facility], [facility] 2 [place] [phone] 01/12/2025 6:45 EDT Treatment [facility] [place] [address] [place], [place] [phone] Carlota Jin MD 1 [facility], [facility] 2 [place] [phone] 01/15/2025 6:45 EDT Treatment [facility] [place] [address] [place], [place] [phone] Carlota Jin MD 1 [facility], [facility] 2 [place] [phone] 01/17/2025 6:45 EDT Treatment [facility] [place] [address] [place], [place] [phone] Carlota Jin MD 1 [facility], [facility] 2 [place] [phone] 01/19/2025 6:45 EDT Treatment [facility] [place] [address] [place], [place] [phone] Carlota Jin MD 1 [facility], [facility] 2 [place] [phone] 01/22/2025 6:45 EDT Treatment [facility] [place] [address] [place], [place] [phone] Carlota Jin MD 1 [facility], [facility] 2 [place] [phone] 01/24/2025 6:45 EDT Treatment [facility] [place] [address] [place], [place] [phone] Carlota Jin MD 1 [facility], [facility] 2 [place] [phone] 01/26/2025 6:45 EDT Treatment [facility] [place] [address] [place], [place] [id number] Carlota Jin MD 1 [facility], [facility] 2 [place] [phone] 01/29/2025 6:45 EDT Treatment [facility] [place] [address] [place], [place] [address] Carlota Jin MD 1 [facility], [facility] 2 [place] [phone] 01/31/2025 6:45 EDT Treatment [facility] [place] [address] [place] [address] Carlota Jin MD 1 [facility], [facility] 2 [place] [phone] 02/02/2025 6:45 EDT Treatment [facility] [place] [address] [place], [place] [phone] Carlota Jin MD 1 [facility], [facility] 2 [place] [phone] 02/05/2025 6:45 EDT Treatment [facility] [place] [address] [place], [place] [id number] Carlota Jin MD 1 [facility], [facility] 2 [place] [phone] 02/07/2025 6:45 EDT Treatment [facility] [place] [address] [place], [place] [phone] Carlota Jin MD 1 [facility], [facility] 2 [place] [phone] 02/09/2025 6:45 EDT Treatment [facility] [place] [address] [place], [place] [phone] Carlota Jin MD 1 [facility], [facility] 2 [place] [phone] 02/12/2025 6:45 EDT Treatment [facility] [place] [address] [place], [place] [phone] Carlota Jin MD 1 [facility], [address] [phone] 02/14/2025 6:45 EDT Treatment [facility] [place] [address] [place], [place] [phone] Carlota Jin MD [address] [phone] 02/16/2025 6:45 EDT Treatment [facility] [place] [address] [place], [place] [phone] Carlota Jin MD [address] [place] [phone] 02/19/2025 6:45 EDT Treatment [facility] [place] [address] [place], [place] [phone] Carlota Jin MD [address] [place] [phone] 02/21/2025 6:45 EDT [facility] [address] [place], [place] [phone] Carlota Jin MD [address] [phone] documented as of this encounter Procedures Procedure Name Priority Date/Time Associated Diagnosis Comments HEMODIALYSIS Routine 05/28/2023 6:33 EDT ESRD (end stage renal disease) ([facility]) documented in this encounter Visit Diagnoses Diagnosis ESRD (end stage renal disease) ([facility])- Primary End stage renal disease Anemia of chronic renal failure, unspecified CKD stage Hypoalbuminemia Other disorders of plasma protein metabolism Secondary hyperparathyroidism ([facility]) Secondary hyperparathyroidism (of renal origin) documented in this encounter Administered Medications Inactive Administered Medications - up to 3 most recent administrations Medication Order MAR Action Action Date Dose Rate Site calcium carbonate (TUMS) tablet 500 mg (200 mg elemental calcium) 2 Tablet 2 Tablet, oral, ONCE IN DIALYSIS, 1 dose, On Wed05/28/23 at 0700, Routine, DialysisIndications:ESRD (end stage renal disease) ([facility]),Secondary hyperparathyroidism ([facility]) Given 05/28/2023 6:37 EDT 2 Tablets epoetin ken (EPOGEN) 20,000 unit/2 mL injection 500 Units 500 Units, intravenous, ONCE IN DIALYSIS, 1 dose, On Wed05/28/23 at 0700, Routine, DialysisIndications:ESRD (end stage renal disease) ([facility]),Anemia of chronic renal failure, unspecified CKD stage Given 05/28/2023 6:37 EDT 500 Units heparin injection 9,000 Units 9,000 Units, intravenous, ONCE IN DIALYSIS, 1 dose, On Wed05/28/23 at 0700, Routine, Dialysis, Now x1 bolus 4500 units to be given at the beginning of dialysis 1500 units/hour to be given over the course of dialysis (9000 units total). Stop 1 hour prior to end of treatment. To be administered per Policy [id number].Indications:ESRD (end stage renal disease) ([facility]) Given 05/28/2023 6:36 EDT 9,000 Units LiquaCel liquid protein liquid 30 mL 30 mL, oral, ONCE IN DIALYSIS, 1 dose, On Wed05/28/23 at 0700, RoutineIndications:Hypoalbuminemi a,ESRD (end stage renal disease) ([facility]) Given 05/28/2023 6:37 EDT 30 mL documented in this encounter Orders Dialysis Count Last Ordered Date First Orde red Date HEMODIALYSIS 1 05/28/2023 documented in this encounter Care Teams It Infrastructure Architect Relationship Specialty Start Date End Date Adeola Villegas APRN [address] [place] [address] PCP - General 10/12/16 07/06/23 documented as of this encounter
--- OUTSIDE RECORDS SUMMARY | 2024-12-05 12:22 | XMS_ITS | Encounter Summary ---
Author Organization [facility] Address [address] [place] [address] Care Team Providers Care Color Worker Name Role Phone Adeola Villegas MONA Primary Care Provider [phone] Encounter Details Date Type Department Care Team (Latest Contact Info) Description 06/02/2023 6:45 EDT Treatment [facility] [address] [place] [address] Carlota Jin MD 1 [facility], Level [address] [place] [phone] ESRD (end stage renal disease) ([facility]) (Primary Dx); Anemia of chronic renal failure, unspecified CKD stage; Hypoalbuminemia; Secondary hyperparathyroidism ([facility]) Social History Tobacco Use [...] - Temperature - - Respiratory Rate 16 06/02/2023 0631 EDT Oxygen Saturation - - Inhaled Oxygen Concentration - - Weight 88.2 kg (194 lb 7.1 oz) 06/02/2023 0631 E DT Height - - Body Mass Index 28.3 01/25/2023 0751 EDT documented in this encounter Miscellaneous Notes * Flowsheet Note - Marcela Cox RN - 06/02/2023 1434 EDT 06/02/23 1051 Post-Hemodialysis Assessment Total Blood Processed (L) 90.27 Liters On Line Clearance: spKt/V 1.42 spKt/V Dialyzer Clearance Lightly streaked Treatment UFR (ml:kg:hr) 4.33 ml:kg:hr Fluid Removed (L) 1.7 L Post-Dialysis Scale Weight 86.7 kg (191 lb 2.2 oz) Wheelchair Weight 0 kg (0 lb) Prosthesis Weight 0 kg (0 lb) Post-Treatment Weight (kg) 86.7 Treatment Weight Change (kg) 1.5 kg Day Target Weight (kg) 87 Post Sitting/Lying BP 128/74 Post Sitting/Lying pulse 76 Post Standing BP 155/82 Post Standing Pulse 70 Temp 36.6 ??C (97.9 ??F) Temp src Temporal Post access assessment AVF/AFG Hemostasis achieved Yes Note 10 min hold Orientation Alert and Oriented x3 Yes Time Yes Place Yes Person Yes Cooperative Yes Disoriented No Discharge Ambulation Methods Ambulatory without assistance Wrap up items Patient Response to Treatment Tolerated tx well. Removed 1.7L UF goal without difficulty. Comments No issues during tx, no concerns voiced post tx. * Dialysis Rounding - Skye Gomez NP - 06/02/2023 0645 EDT Dialysis Provider's Routine Assessment The visit was conducted via telehealth (audio/video) between the [facility] and the provider from their Home Office. The interaction was assisted by [employer]. The patient has no complaints and no [...] visit: None Changes to current prescriptions/orders: None Monthly labs reviewed with patient, high phosphorous and phos binders discussed. Skye Gomez NP documented in this encounter Plan of Treatment Upcoming Encounters Date Type Department Care Team (Late st Contact Info) Description 12/06/2024 6:45 EST Treatment [facility] [place] [address] [place], [place] [id number] Carlota Jin MD [address] [phone] 12/08/2024 6:45 EST Treatment [facility] [address] [place], [place] [id number] Carlota Jin MD [address] [phone] 12/11/2024 6:45 EST Treatment [facility] [address] [place], [place] [id number] Carlota Jin MD [address] [place] [phone] 12/13/2024 6:45 EST Treatment [facility] [address] [place], [place] [id number] Carlota Jin MD [address] [place] [address] [place] [phone] 12/15/2024 6:45 EST Treatment [facility] [place] [address] [place], [place] [id number] Carlota Jin MD 1 [facility] 2 [place] [phone] 12/18/2024 6:45 EST Treatment [facility] [place] [address] [place], [place] [id number] Carlota Jin MD 1 [facility], [facility] 2 [place] [phone] 12/20/2024 6:45 EST Treatment [facility] [place] [address] [place], [place] [id number] Carlota Jin MD 1 [facility], [facility] [address] [place] [phone] 12/22/2024 6:45 EST Treatment [facility] [address] [place], [place] [phone] Carlota Jin MD [address] [facility], [facility] [address] [place] [phone] 12/25/2024 6:45 EST Treatment [facility] [address] [place], [place] [id number] Carlota Jin MD 1 [facility], [facility] 2 [place] [phone] 12/27/2024 6:45 EST Treatment [facility] [place] [address] [place], [place] [id number] Carlota Jin MD 1 [facility], [facility] 2 [place] [phone] 12/29/2024 6:45 EST Treatment [facility] [place] [address] [place], [place] [phone] Carlota Jin MD 1 [facility], [facility] 2 [place] [phone] 01/01/2025 6:45 EDT Treatment [facility] [place] [address] [place], [place] [id number] Carlota Jin MD 1 [facility], [facility] 2 [place] [phone] 01/03/2025 6:45 EDT Treatment [facility] [place] [address] [place], [place] [id number] Carlota Jin MD 1 [facility], [facility] 2 [place] [phone] 01/05/2025 6:45 EDT Treatment [facility] [place] [address] [place], [place] [phone] Carlota Jin MD 1 [facility], [facility] 2 [place] [phone] 01/08/2025 6:45 EDT Treatment [facility] [place] [address] [place], [place] [id number] Carlota Jin MD 1 [facility] 2 [place] [phone] 01/10/2025 6:45 EDT Treatment [facility] [place] [address] [place], [place] [id number] Carlota Jin MD 1 [facility], [facility] 2 [place] [phone] 01/12/2025 6:45 EDT Treatment [facility] [place] [address] [place], [place] [id number] Carlota Jin MD 1 [facility], [facility] 2 [place] [phone] 01/15/2025 6:45 EDT Treatment [facility] [place] [address] [place], [place] [id number] Carlota Jin MD [address] [facility], [facility] 2 [place] [phone] 01/17/2025 6:45 EDT Treatment [facility] [place] [address] [place], [place] [id number] Carlota Jin MD [address] [facility], [facility] 2 [place] [phone] 01/19/2025 6:45 EDT Treatment [facility] [address] [place], [place] [phone] Carlota Jin MD [address] [facility], [facility] 2 [place] [phone] 01/22/2025 6:45 EDT Treatment [facility] [place] [address] [place], [place] [id number] Carlota Jin MD 1 [facility], [facility] 2 [place] [phone] 01/24/2025 6:45 EDT Treatment [facility] [place] [address] [place], [place] [id number] Carlota Jin MD 1 [facility], [address] [phone] 01/26/2025 6:45 EDT Treatment [facility] [place] [address] [place], [place] [id number] Carlota Jin MD 1 [facility], [address] [phone] 01/29/2025 6:45 EDT Treatment [facility] [place] [address] [place], [place] [phone] Carlota Jin MD 1 [facility], [facility] 2 [place] [phone] 01/31/2025 6:45 EDT Treatment [facility] [place] [address] [place], [place] [phone] Carlota Jin MD 1 [facility], [facility] 2 [place] [phone] 02/02/2025 6:45 EDT Treatment [facility] [place] [address] [place], [place] [phone] Carlota Jin MD [address] [facility], [facility] 2 [place] [phone] 02/05/2025 6:45 EDT Treatment [facility] [place] [address] [place], [place] [phone] Carlota Jin MD 1 [facility], [facility] 2 [place] [phone] 02/07/2025 6:45 EDT Treatment [facility] [place] [address] [place] [address] Carlota Jin MD 1 [facility], [facility] 2 [place] [phone] 02/09/2025 6:45 EDT Treatment [facility] [place] [address] [place] [address] Carlota Jin MD 1 [facility], [facility] 2 [place] [phone] 02/12/2025 6:45 EDT Treatment [facility] [place] [address] [place] [address] Carlota Jin MD 1 [facility], [facility] 2 [place] [phone] 02/14/2025 6:45 EDT Treatment [facility] [place] [address] [place], [place] [phone] Carlota Jin MD 1 [facility], [facility] 2 [place] [phone] 02/16/2025 6:45 EDT Treatment [facility] [place] [address] [place], [place] [id number] Carlota Jin MD 1 [facility], [facility] 2 [place] [phone] 02/19/2025 6:45 EDT Treatment [facility] [place] [address] [place], [place] [phone] Carlota Jin MD 1 [facility], [facility] 2 [place] [phone] 02/21/2025 6:45 EDT Treatment [facility] [address] [place], [place] [phone] Carlota Jin MD 1 [facility], [facility] 2 [place] [phone] documented as of this encounter Procedures Procedure Name Priority Date/Time Associated Diagnosis Comments COMPLETE BLOOD COUNT Routine 06/02/2023 6:37 EDT ESRD (end stage renal disease) ([facility]) HEMODIALYSIS Routine 06/02/2023 6:31 EDT ESRD (end stage renal disease) ([facility]) documented in this encounter Results * (ABNORMAL) COMPLETE BLOOD COUNT (06/02/2023 6:37 EDT) WBC 7.29 4.00 - 10.40 K/cmm 06/02/2023 21:22 EDT [facility] RBC 3.36(L) 4.36 - 5.78 M/cmm 06/02/2023 21:22 T [facility] Hemoglobin 10.7(L) 13.8 - 17.3 g/dL 06/02/2023 21:22 [facility] HCT 32.1(L) 39.5 - 50.2 % 06/02/2023 21:22 [facility] MCV 96(H) 81 - 95 fL 06/02/2023 21:22 [facility] MCH 31.8 27.6 - 33.0 pg 06/02/2023 21:22 [facility] MCHC 33.3 32.8 - 36.4 g/dL 06/02/2023 21:22 [facility] RDW-CV 11.9 <14.2 % 06/02/2023 21:22 [facility] RDW-SD 41.8 <46.0 fl 06/02/2023 21:22 [facility] PLT 256 141 - 377 K/cmm 06/02/2023 21:22 [facility] MPV 11.3 9.5 - 12.7 fL 06/02/2023 21:22 [facility] Blood VENOUS BLOOD / Unknown Venipuncture / Unknown 06/02/2023 6:37 EDT 06/02/2023 6:37 EDT us Carlota Jin MD HEMATOLOGY & PF4 ORDERABL ES Final Result [facility] [address] [place] [address] documented in this encounter Visit Diagnoses Diagnosis ESRD (end stage renal disease) ([facility])- Primary End stage renal disease Anemia of chronic renal failure, unspecified CKD stage Hypoalbuminemia Other disorders of plasma protein metabolism Secondary hyperparathyroidism ([facility]) Secondary hyperparathyroidism (of renal origin) documented in this encounter Administered Medications Inactive Administered Medications - up to 3 most recent administrations Medication Order MAR Action Action Date Dose Rate Site calcium carbonate (TUMS) tablet 500 mg (200 mg elemental calcium) 2 Tablet 2 Tablet, oral, ONCE IN DIALYSIS, 1 dose, On Wed06/02/23 at 0700, Routine, DialysisIndications:ESRD (end stage renal disease) ([facility]),Secondary hyperparathyroidism ([facility]) Given 06/02/2023 6:54 EDT 2 Tablets epoetin ken (EPOGEN) 20,000 unit/2 mL injection 500 Units 500 Units, intravenous, ONCE IN DIALYSIS, 1 dose, On Wed06/02/23 at 0700, Routine, DialysisIndications:ESRD (end stage renal disease) ([facility]),Anemia of chronic renal failure, unspecified CKD stage Given 06/02/2023 6:54 EDT 500 Units heparin injection 9,000 Units 9,000 Units, intravenous, ONCE IN DIALYSIS, 1 dose, On Wed06/02/23 at 0700, Routine, Dialysis, Now x1 bolus 4500 units to be given at the beginning of dialysis 1500 units/hour to be given over the course of dialysis (9000 units total). Stop 1 hour prior to end of treatment. To be administered per Policy [id number].Indications:ESRD (end stage renal disease) ([facility]) Given 06/02/2023 6:50 EDT 9,000 Units LiquaCel liquid protein liquid 30 mL 30 mL, oral, ONCE IN DIALYSIS, 1 dose, On Wed06/02/23 at 0700, RoutineIndications:Hypoalbuminemi a,ESRD (end stage renal disease) ([facility]) Given 06/02/2023 6:54 EDT 30 mL documented in this encounter Orders Dialysis Count Last Ordered Date First Orde red Date HEMODIALYSIS 1 06/02/2023 documented in this encounter Care Teams Color Worker Relationship Specialty Start Date End Date Adeola Villegas APRN [address] [place] [address] PCP - General 10/12/16 07/06/23 documented as of this encounter
--- OUTSIDE RECORDS SUMMARY | 2024-12-05 12:22 | XMS_ITS | Encounter Summary ---
Author Organization [facility] Address [address] [place] [address] Care Team Providers Care Director [employer] Name Role Phone Adeola Villegas MONA Primary Care Provider [phone] Encounter Details Date Type Department Care Team (Latest Contact Info) Description 06/04/2023 6:45 EDT Treatment [facility] [address] [place], [place] [id number] Carlota Jin MD 1 [facility], Level [address] [place] [address] ESRD (end stage renal disease) ([facility]) (Primary Dx); Anemia of chronic renal failure, unspecified CKD stage; Hypoalbuminemia; Secondary hyperparathyroidism ([facility]); Encounter for immunization Social History [...] as of this encounter Miscellaneous Notes * Flowsheet Note - Teto Ribeiro RN - 06/04/2023 1144 EDT 06/04/23 1050 Post-Hemodialysis Assessment Total Blood Processed (L) 90.09 Liters On Line Clearance: spKt/V 1.5 spKt/V Dialyzer Clearance Lightly streaked Treatment UFR (ml:kg:hr) 2 ml:kg:hr Critline refill Not done Fluid Removed (L) 0.9 L Post-Dialysis Scale Weight 86.7 kg (191 lb 2.2 oz) Wheelchair Weight 0 kg (0 lb) Prosthesis Weight 0 kg (0 lb) Post-Treatment Weight (kg) 86.7 Treatment Weight Change (kg) 0.7 kg Day Target Weight (kg) 87 Post Sitting/Lying BP (!) 178/94 Post Sitting/Lying pulse 72 Post Standing BP 157/85 Post Standing Pulse 73 Temp 36.6 ??C (97.9 ??F) Temp src Temporal Post access assessment AVF/AFG Hemostasis achieved Yes Orientation Alert and Oriented x3 Yes Time Yes Place Yes Person Yes Cooperative Yes Disoriented No Discharge Ambulation Methods Ambulatory without assistance Wrap up items Patient Response to Treatment Teri. tx well, removed Comments No complaints, no s/s of distress noted, VSS upon d/c documented in this encounter Plan of Treatment Upcoming Encounters Date Type Department Care Team (Late st Contact Info) Description 12/06/2024 6:45 EST Treatment [facility] Dial[facility] [address] [place], [place] [phone] Carlota Jin MD [address] [place] [address], [facility] [address] [place] [address] 12/08/2024 6:45 EST Treatment [facility] D[facility] [address] [place] [phone] Carlota Jin MD [address] [place] [address], [facility] [address] [place] [address] 12/11/2024 6:45 EST Treatment [facility] D[facility] [address] [place], [place] [phone] Carlota Jin MD 1 [facility], [address] [place] [phone] 12/13/2024 6:45 EST Treatment [facility] - [place] [address] [place], [place] [address] Carlota Jin MD 1 [facility], [facility] [address] [place] [phone] 12/15/2024 6:45 EST Treatment [facility] - [place] [address] [place], [place] [phone] Carlota Jin MD 1 [facility], [facility] 2 [place] [phone] 12/18/2024 6:45 EST Treatment [facility] [place] [address] [place] [address] Carlota Jin MD 1 [facility], [facility] [address] [place] [phone] 12/20/2024 6:45 EST Treatment [facility] [address] [place] [address] Carlota Jin MD 1 [facility], [facility] [address] [place] [phone] 12/22/2024 6:45 EST Treatment [facility] [place] [address] [place], [place] [phone] Carlota Jin MD 1 [facility], [facility] [address] [place] [phone] 12/25/2024 6:45 EST Treatment [facility] - [place] [address] [place], [place] [phone] Carlota Jin MD 1 [facility], [facility] [address] [place] [phone] 12/27/2024 6:45 EST Treatment [facility] - [place] [address] [place], [place] [phone] Carlota Jin MD 1 [facility], [facility] [address] [place] [phone] 12/29/2024 6:45 EST Treatment [facility] - [place] [address] [place], [place] [phone] Carlota Jin MD 1 [facility], [facility] [address] [place] [phone] 01/01/2025 6:45 EDT Treatment [facility] - [place] [address] [place], [place] [phone] Carlota Jin MD 1 [facility], [facility] 2 [place] [phone] 01/03/2025 6:45 EDT Treatment [facility] - [place] [address] [place], [place] [phone] Carlota Jin MD 1 [facility], [facility] 2 [place] [phone] 01/05/2025 6:45 EDT Treatment [facility] - [place] [address] [place], [place] [phone] Carlota Jin MD 1 [facility], [facility] 2 [place] [phone] 01/08/2025 6:45 EDT Treatment [facility] - [place] [address] [place], [place] [phone] Carlota Jin MD 1 [facility], [facility] 2 [place] [phone] 01/10/2025 6:45 EDT Treatment [facility] - [place] [address] [place], [place] [phone] Carlota Jin MD 1 [facility], [facility] 2 [place] [phone] 01/12/2025 6:45 EDT Treatment [facility] - [place] [address] [place] [address] Carlota Jin MD 1 [facility], [facility] [address] [place] [phone] 01/15/2025 6:45 EDT Treatment [facility] - [place] [address] [place] [address] Carlota Jin MD 1 [facility], [facility] 2 [place] [phone] 01/17/2025 6:45 EDT Treatment [facility] - [place] [address] [place], [place] [phone] Carlota Jin MD 1 [facility], [facility] 2 [place] [phone] 01/19/2025 6:45 EDT Treatment [facility] - [place] [address] [place], [place] [phone] Carlota Jin MD 1 [facility], [facility] [address] [place] [phone] 01/22/2025 6:45 EDT Treatment [facility] - [place] [address] [place], [place] [phone] Carlota Jin MD 1 [facility], [facility] [address] [place] [phone] 01/24/2025 6:45 EDT Treatment [facility] - [place] [address] [place], [place] [phone] Carlota Jin MD 1 [facility], [facility] 2 [place] [phone] 01/26/2025 6:45 EDT Treatment [facility] - [place] [address] [place], [place] [phone] Carlota Jin MD 1 [facility], [facility] 2 [place] [phone] 01/29/2025 6:45 EDT Treatment [facility] - [place] [address] [place], [place] [phone] Carlota Jin MD 1 [facility], [facility] [address] [place] [phone] 01/31/2025 6:45 EDT Treatment [facility] - [place] [address] [place], [place] [id number] Carlota Jin MD 1 [facility], [facility] 2 [place] [phone] 02/02/2025 6:45 EDT Treatment [facility] - [place] [address] [place] [address] Carlota Jin MD 1 [facility], [facility] [address] [place] [phone] 02/05/2025 6:45 EDT Treatment [facility] - [place] [address] [place], [place] [phone] Carlota Jin MD 1 [facility], [address] [phone] 02/07/2025 6:45 EDT Treatment [facility] - [place] [address] [place], [place] [id number] Carlota Jin MD 1 [facility], [address] [phone] 02/09/2025 6:45 EDT Treatment [facility] - [place] [address] [place], [place] [phone] Carlota Jin MD 1 [facility], [facility] 2 [place] [phone] 02/12/2025 6:45 EDT Treatment [facility] - [place] [address] [place], [place] [phone] Carlota Jin MD 1 [facility], [facility] 2 [place] [phone] 02/14/2025 6:45 EDT Treatment [facility] [address] [place], [place] [phone] Carlota Jin MD [address] [place] [phone] 02/16/2025 6:45 EDT Treatment [facility] - [place] [address] [place], [place] [phone] Carlota Jin MD [address] [place] [phone] 02/19/2025 6:45 EDT [facility] [address] [place], [place] [phone] Carlota Jin MD [address] [place] [phone] 02/21/2025 6:45 EDT Treatment [facility] [address] [place], [place] [phone] Carlota Jin MD [address] [place] [phone] documented as of this encounter Procedures Procedure Name Priority Date/Time Associated Diagnosis Comments HEMODIALYSIS Routine 06/04/2023 6:30 EDT ESRD (end stage renal disease) ([facility]) documented in this encounter Visit Diagnoses Diagnosis ESRD (end stage renal disease) ([facility])- Primary End stage renal disease Anemia of chronic renal failure, unspecified CKD stage Hypoalbuminemia Other disorders of plasma protein metabolism Secondary hyperparathyroidism ([facility]) Secondary hyperparathyroidism (of renal origin) [...] oral, ONCE IN DIALYSIS, 1 dose, On Wed06/04/23 at 0700, Routine, DialysisIndications:ESRD (end stage renal disease) ([facility]),Secondary hyperparathyroidism ([facility]) Given 06/04/2023 6:55 EDT 2 Tablets epoetin ken (EPOGEN) 20,000 unit/2 mL injection 500 Units 500 Units, intravenous, ONCE IN DIALYSIS, 1 dose, On Wed06/04/23 at 0700, Routine, DialysisIndications:ESRD (end stage renal disease) ([facility]),Anemia of chronic renal failure, unspecified CKD stage Given 06/04/2023 6:54 EDT 500 Units heparin injection 9,000 Units 9,000 Units, intravenous, ONCE IN DIALYSIS, 1 dose, On Wed06/04/23 at 0700, Routine, Dialysis, Now x1 bolus 4500 units to be given at the beginning of dialysis 1500 units/hour to be given over the course of dialysis (9000 units total). Stop 1 hour prior to end of treatment. To be administered per Policy [id number].Indications:ESRD (end stage renal disease) ([facility]) Given 06/04/2023 6:54 EDT 9,000 Units iron sucrose (VENOFER) injection 200 mg 200 mg, intravenous, ONCE IN DIALYSIS, 1 dose, On Wed06/04/23 at 0700, Routine, DialysisIndications:Hypoalbuminem ia,Encounter for immunization,ESRD (end stage renal disease) ([facility]) Given 06/04/2023 6:54 EDT 200 mg LiquaCel liquid protein liquid 30 mL 30 mL, oral, ONCE IN DIALYSIS, 1 dose, On Wed06/04/23 at 0700, RoutineIndications:Hypoalbuminemi a,ESRD (end stage renal disease) ([facility]) Given 06/04/2023 6:55 EDT 30 mL documented in this encounter Orders Dialysis Count Last Ordered Date First Orde red Date HEMODIALYSIS 1 06/04/2023 documented in this encounter Care Teams Director [employer] Relationship Specialty Start Date End Date Adeola Villegas APRN [facility] [address] [place] [address] PCP - General 10/12/16 07/06/23 documented as of this encounter
--- OUTSIDE RECORDS SUMMARY | 2024-12-05 12:22 | XMS_ITS | Encounter Summary ---
Author Organization [facility] Address [address] [place] [address] Care Team Providers Care Railroad Firer Name Role Phone Adeola Villegas APRN Primary Care Provider [phone] Encounter Details Date Type Department Care Team (Latest Contact Info) Description 06/16/2023 6:45 EDT Treatment [facility] [address] [place] [address] Carlota Jin MD [address] [facility], [address] [place] [address] ESRD (end stage renal disease) ([facility]) (Primary Dx); Anemia of chronic renal failure, unspecified CKD stage; Hypoalbuminemia; Secondary hyperparathyroidism ([facility]) Social History Tobacco Use Types Packs/Day [...] - Temperature - - Respiratory Rate 16 06/16/2023 0623 EDT Oxygen Saturation - - Inhaled Oxygen Concentration - - Weight 88.9 kg (195 lb 15.8 oz) 06/16/2023 0623 EDT Height - - Body Mass Index 28.53 01/25/2023 0751 EDT documented in this encounter Miscellaneous Notes * Flowsheet Note - Marcela Cox RN - 06/16/2023 1110 EDT 06/16/23 1038 Post-Hemodialysis Assessment Total Blood Processed (L) 90.47 Liters On Line Clearance: spKt/V 1.46 spKt/V Dialyzer Clearance Lightly streaked Treatment UFR (ml:kg:hr) 6.88 ml:kg:hr Critline refill Not done Fluid Removed (L) 2.5 L Post-Dialysis Scale Weight 86.5 kg (190 lb 11.2 oz) Wheelchair Weight 0 kg (0 lb) Prosthesis Weight 0 kg (0 lb) Post-Treatment Weight (kg) 86.5 Treatment Weight Change (kg) 2.4 kg Day Target Weight (kg) 86.9 Post Sitting/Lying BP 147/81 Post Sitting/Lying pulse 70 Post Standing BP 142/76 Post Standing Pulse 72 Temp 36.3 ??C [...] Dialysis Comprehensive - Skye Gomez NP - 06/16/2023 0645 EDT Images from the original note were not included. 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 ESRD (end stage renal disease) ([facility]) (HCC) ??? Essential (primary) hypertension ??? Hearing loss [...] with Nursing: Yes Average Interdialytic Fluid Gains: 06/11/2023 6:29 06/11/2023 10:44 06/14/2023 6:23 06/14/2023 10:37 06/16/2023 6:19 06/16/2023 6:23 06/16/2023 10:38 InterDialytic +/- Gain/Loss 1.7 1.2 2.6 2.6 Wt (pre) 88.4 87.9 88.9 88.9 Wt (post) 86.7 86.3 86.5 Treatment UFR (ml:kg:hr) 4.88 ml:kg:hr 4.63 ml:kg:hr 6.88 ml:kg:hr BP (pre) 180/93 159/82 170/92 170/92 BP (post) 189/97 193/105 199/78 199/78 Pulse (pre) 75 82 74 74 Pulse(post) 73 91 73 73 Resp (/min) 18 18 16 16 Volume and blood pressure have been addressed with the following changes: None Consistently able to achieve estimated dry weight? Yes Blood pressure is in range for patient? Yes Any adverse intradialytic symptoms? No, rare cramping Plan: Managed per protocol Physical Exam: NAD, respirations unlabored Hospitalization Hospitalization in Previous 3 Months: No Emergency Room Visit in Previous 3 Months: No Access Management Current LDAs: Hemodialysis Arteriovenous Access 02/13/19 (Active) AV Fistula Absent 06/11/23 06 Site Assessment Clean;Dry;Intact;Thrill felt;Bruit heard 06/16/23 06 Current State Active 06/16/2341 Status Accessed 06/16/23640 Is Maturing N 06/16/23640 Local Anesthetic None 06/16/23640 Site Prep Chlorhexidine 06/16/23640 Venous Needle Size 15 G 06/16/23640 Arterial/Generic Needle Size 15 G 06/16/23 0641 Accessed by: Rosa 06/16/23640 Access Attempts 2 06/16/23640 Dressing Status/Care Clean/Dry/Intact 06/11/2357 Patient has AVF/AVG as primary access: Yes [...] Hemodialysis 3 times a week Week of 06/13/2023 Routine, ONE TIME Starting when released Prescribed [...] - UF Profile: None Dialysis Last released: Wed06/16/2023 Oxygen Therapy (Age 3 yrs. to Adult) [...] of treatment. To be administered per Policy [id number]. Last released: Wed06/16/2023 sodium chloride 0.9 % BOLUS 100 mL PRN PRN 100 mL, intravenous, PRN Starting when released Until Discontinued, Other, hypotension or cramping,Dialysis Last released: Never Dialysis Weekly Labs Complete Blood Count Weekly: Wed06/23/2023 Routine, ONE TIME Starting when released, Blood, Venous, Blood Results Release to Patient (Note: Choosing Manual Release will only block results from tests performed at [facility] and does not apply for Miscellaneous Test Order): Immediate via MyChart Portal Dialysis Last released: Wed06/16/2023 Dialysis Monthly Labs Dialysis Iron (Includes Iron, IBC, and Ferritin) - Nephrology Use Only On the Wed of every 1 month 06/28/2023 Routine, ONE TIME Starting when released, Blood, Venous, Blood Results Release to Patient (Note: Choosing Manual Release will only block results from tests performed at [facility] and does not apply for Miscellaneous Test Order): Immediate via [facility] [employer] Portal Dialysis Last released: Wed05/31/2023 Dialysis Routine- Dialysis Use Only On the Wed of every 1 month [facility] 06/28/2023 Routine, ONE TIME Starting when released, Blood, Blood, Venous Results Release to Patient (Note: Choosing Manual Release will only block results from tests performed at [facility] and does not apply for Miscellaneous Test Order): Immediate via [facility] [employer] Portal Dialysis Last released: Wed05/31/2023 Postdialysis BUN with URR Calculation On the Mon of every 1 month [facility] 06/28/2023 Routine, ONE TIME Starting when released, Blood, Blood, Venous Results Release to Patient (Note: Choosing Manual Release will only block results from tests performed at [facility] and does not apply for Miscellaneous Test Order): Immediate via MyChart Portal Dialysis Last released: Wed05/31/2023 Dialysis Quarterly Labs PTH Intact On the Wed of every 3 months [facility] 07/26/2023 Routine, ONE TIME Starting when released, Blood, Venous, Blood Results Release to Patient (Note: Choosing Manual Release will only block results from tests performed at [facility] and does not apply for Miscellaneous Test Order): Immediate via [facility] [employer] Portal Dialysis Last released: Wed04/26/2023 Dialysis Annual Labs - October Dialysis Hepatitis- Dialysis Use Only On the Mon of every 12 months [facility] 10/25/2023 Routine, ONE TIME Starting when released, [...] On the Mon of every 12 months [facility] 10/25/2023 Routine, ONE TIME Starting when released, [...] only block results from tests performed at [facility] and does not apply for Miscellaneous Test [...] only block results from tests performed at [facility] and does not apply for Miscellaneous Test Order): Immediate via MyChart Portal Dialysis Last released: Wed04/26/2023 HEMODIALYSIS [facility] Medications epoetin ken (EPOGEN) 20,000 unit/2 mL injection 500 Units 3 times a week Week of 06/13/2023 500 Units, intravenous, ONCE IN DIALYSIS Starting when released, Dialysis Last released: Wed06/16/2023 HEMODIALYSIS NUTRITIONAL SUPPLEMENTS Nutritional Supplements LiquaCel liquid protein liquid 30 mL Every visit Every visit 30 mL, oral, ONCE IN DIALYSIS Starting when released Last released: Wed06/16/2023 HEMODIALYSIS CKD MBD MEDS Medications calcium carbonate (TUMS) tablet 500 mg (200 mg elemental calcium) 2 Tablet Every visit Every visit 2 Tablet, oral, ONCE IN DIALYSIS Starting when released, Dialysis Last released: Wed06/16/2023 Adjustment made to dialysis medication: No Laboratory Results Dialysis Adequacy: spKt/V: 1.43 (Calculated from:; BUN Pre-Dialysis: 73 mg/dL at 05/31/2023 10:56; BUN Post-Dialysis: 21mg/dL at 05/31/2023 10:56; Pre-Treatment Weight (kg): 89.7 at 05/31/2023 6:31; Post-Treatment Weight (kg): 87.8 at 05/31/2023 10:52; Duration of Treatment (minutes): 241 minutes at 05/31/2023 10:52) Plan: Continue current dialysis prescription Anemia Management: Lab Results Component Value Date WBC 7.89 06/09/2023 HGB 10.5 (L) 06/09/2023 HGB 10.7 (L) 06/02/2023 HGB 10.5 (L) 05/26/2023 PLT 269 06/09/2023 FOLATE 17.3 11/16/2022 [id number] 11/16/2022 FERRITIN 656 (H) 05/31/2023 Current GEORGE/Dose: HEMODIALYSIS [facility] epoetin ken [...] Lab Results Component Value Date LABALBU 3.4 05/31/2023 ALKPHOS 83 05/31/2023 PHOS 8.2 (H) 05/31/2023 CALCIUM 8.7 05/31/2023 CALCCA 9.2 05/31/2023 PTH 369 (H) 04/26/2023 Vitamin D: cholecalciferol (Vitamin D3) - 25 mcg (1,000 unit) sevelamer hydrochloride - 800 mg This patient does not have an active medication from one of the medication groupers. Plan: Managed per protocol Potassium Management: Lab Results Component Value Date K 5.3 (H) 05/31/2023 Prescribed Potassium Concentrate: HEMODIALYSIS Ordered at: 06/16/23622 Dialysate concentrate: Potassium 2 mEq/L Calcium 2.5 mEq/L 06/16/2023 6:23 Last Dialysis Prescription released on: Selected bath: Potassium 2 mEq/L Calcium 2.5 mEq/L sevelamer hydrochloride - 800 mg Plan: Managed per protocol Nutrition: Lab Results Component Value Date LABALBU 3.4 05/31/2023 NA 138 05/31/2023 Protein Supplements: This patient does not have an active medication from one of the medication groupers. Plan: Managed per protocol Comments: No acute issues. documented in this encounter Plan of Treatment Upcoming Encounters Date Type Department Care Team (Late st Contact Info) Description 12/06/2024 6:45 EST Treatment [facility] [place] [address] [place], [place] [id number] Carlota Jin MD 1 [facility], [facility] [address] [place] [phone] 12/08/2024 6:45 EST Treatment [facility] [place] [address] [place], [place] [id number] Carlota Jin MD [address] [facility], [facility] [address] [place] [phone] 12/11/2024 6:45 EST Treatment [facility] [place] [address] [place], [place] [id number] Carlota Jin MD [address] [facility], [facility] [address] [place] [phone] 12/13/2024 6:45 EST Treatment [facility] [place] [address] [place], [place] [id number] Carlota Jin MD [address] [facility], [address] [phone] 12/15/2024 6:45 EST Treatment [facility] [place] [address] [place], [place] [id number] Carlota Jin MD [address] [facility], [facility] [address] [place] [phone] 12/18/2024 6:45 EST Treatment [facility] [place] [address] [place], [place] [id number] Carlota Jin MD [address] [facility], [facility] [address] [place] [phone] 12/20/2024 6:45 EST Treatment [facility] [place] [address] [place], [place] [id number] Carlota Jin MD 1 [facility], [facility] [address] [place] [phone] 12/22/2024 6:45 EST Treatment [facility] [place] [address] [place], [place] [id number] Carlota Jin MD 1 [facility], [facility] [address] [place] [phone] 12/25/2024 6:45 EST Treatment [facility] [place] [address] [place] [address] Carlota Jin MD 1 [facility], [facility] [address] [place] [phone] 12/27/2024 6:45 EST Treatment [facility] [address] [place], [place] [id number] Carlota Jin MD 1 [facility], [facility] [address] [place] [phone] 12/29/2024 6:45 EST Treatment [facility] [address] [place], [place] [id number] Carlota Jin MD 1 [facility], [facility] [address] [place] [phone] 01/01/2025 6:45 EDT Treatment [facility] [place] [address] [place], [place] [id number] Carlota Jin MD [address] [facility], [facility] [address] [place] [phone] 01/03/2025 6:45 EDT Treatment [facility] [place] [address] [place], [place] [id number] Carlota Jin MD [address] [facility], [facility] [address] [place] [phone] 01/05/2025 6:45 EDT Treatment [facility] [place] [address] [place], [place] [id number] Carlota Jin MD [address] [facility], [facility] [address] [place] [phone] 01/08/2025 6:45 EDT Treatment [facility] [place] [address] [place], [place] [id number] Carlota Jin MD [address] [facility], [facility] [address] [place] [phone] 01/10/2025 6:45 EDT Treatment [facility] [place] [address] [place], [place] [id number] Carlota Jin MD [address] [facility], [facility] [address] [place] [phone] 01/12/2025 6:45 EDT Treatment [facility] [place] [address] [place], [place] [id number] Carlota Jin MD [address] [facility], [facility] [address] [place] [phone] 01/15/2025 6:45 EDT Treatment [facility] [place] [address] [place], [place] [id number] Carlota Jin MD 1 [facility], [facility] [address] [place] [phone] 01/17/2025 6:45 EDT Treatment [facility] [place] [address] [place], [place] [id number] Carlota Jin MD [address] [facility], [facility] [address] [place] [phone] 01/19/2025 6:45 EDT Treatment [facility] [place] [address] [place], [place] [id number] Carlota Jin MD [address] [facility], [facility] [address] [place] [phone] 01/22/2025 6:45 EDT Treatment [facility] [place] [address] [place], [place] [id number] Carlota Jin MD 1 [facility], [facility] [address] [place] [phone] 01/24/2025 6:45 EDT Treatment [facility] [place] [address] [place], [place] [id number] Carlota Jin MD 1 [facility], [facility] [address] [place] [phone] 01/26/2025 6:45 EDT Treatment [facility] [place] [address] [place], [place] [id number] Carlota Jin MD [address] [facility], [facility] [address] [place] [phone] 01/29/2025 6:45 EDT Treatment [facility] [place] [address] [place], [place] [id number] Carlota Jin MD [address] [facility], [facility] [address] [place] [phone] 01/31/2025 6:45 EDT Treatment [facility] [place] [address] [place], [place] [id number] Carlota Jin MD [address] [place] [address], [facility] [address] [place] [phone] 02/02/2025 6:45 EDT Treatment [facility] [place] [address] [place], [place] [id number] Carlota Jin MD [address] [facility], [facility] [address] [place] [phone] 02/05/2025 6:45 EDT Treatment [facility] [place] [address] [place], [place] [id number] Carlota Jin MD [address] [facility], [facility] [address] [place] [phone] 02/07/2025 6:45 EDT Treatment [facility] [place] [address] [place], [place] [id number] Carlota Jin MD 1 [facility], [facility] [address] [place] [phone] 02/09/2025 6:45 EDT Treatment [facility] [place] [address] [place], [place] [id number] Carlota Jin MD 1 [facility], [facility] [address] [place] [phone] 02/12/2025 6:45 EDT Treatment [facility] [place] [address] [place], [place] [id number] Carlota Jin MD [address] [facility], [facility] [address] [place] [phone] 02/14/2025 6:45 EDT Treatment [facility] [place] [address] [place] [address] Carlota Jin MD [address] [facility], [facility] [address] [place] [phone] 02/16/2025 6:45 EDT Treatment [facility] [place] [address] [place] [address] Carlota Jin MD [address] [facility], [facility] [address] [place] [phone] 02/19/2025 6:45 EDT Treatment [facility] [place] [address] [place], [place] [id number] Carlota Jin MD [address] [facility], [facility] [address] [place] [phone] 02/21/2025 6:45 EDT Treatment [facility] [place] [address] [place], [place] [address] Carlota Jin MD [address] [facility], [address] [place] [phone] documented as of this encounter Procedures Procedure Name Priority Date/Time Associated Diagnosis Comments COMPLETE BLOOD COUNT Routine 06/16/2023 6:28 EDT ESRD (end stage renal disease) ([facility]) HEMODIALYSIS Routine 06/16/2023 6:23 EDT ESRD (end stage renal disease) ([facility]) documented in this encounter Results * (ABNORMAL) COMPLETE BLOOD COUNT (06/16/2023 6:28 EDT) WBC 7.27 4.00 - 10.40 K/cmm 06/16/2023 21:44 [facility] RBC 3.36(L) 4.36 - 5.78 M/cmm 06/16/2023 21:44 [facility] Hemoglobin 10.7(L) 13.8 - 17.3 g/dL 06/16/2023 21:44 [facility] HCT 31.9(L) 39.5 - 50.2 % 06/16/2023 21:44 [facility] MCV 95 81 - 95 fL 06/16/2023 21:44 [facility] MCH 31.8 27.6 - 33.0 pg 06/16/2023 21:44 [facility] MCHC 33.5 32.8 - 36.4 g/dL 06/16/2023 21:44 [facility] RDW-CV 12.2 <14.2 % 06/16/2023 21:44 [facility] RDW-SD 42.2 <46.0 fl 06/16/2023 21:44 [facility] PLT 275 141 - 377 K/cmm 06/16/2023 21:44 EDT [facility] MPV 11.6 9.5 - 12.7 fL 06/16/2023 21:44 EDT [facility] Blood VENOUS BLOOD / Unknown Venipuncture / Unknown 06/16/2023 6:28 EDT 06/16/2023 6:28 EDT us Carlota Jin MD HEMATOLOGY & PF4 ORDERABL ES Final Result [facility] [address] [place] [address] documented in this encounter Visit Diagnoses Diagnosis ESRD (end stage renal disease) ([facility])- Primary End stage renal disease Anemia of chronic renal failure, unspecified CKD stage Hypoalbuminemia Other disorders of plasma protein metabolism Secondary hyperparathyroidism ([facility]) Secondary hyperparathyroidism (of renal origin) documented in this encounter Administered Medications Inactive Administered Medications - up to 3 most recent administrations Medication Order MAR Action Action Date Dose Rate Site calcium carbonate (TUMS) tablet 500 mg (200 mg elemental calcium) 2 Tablet 2 Tablet, oral, ONCE IN DIALYSIS, 1 dose, On Wed06/16/23 at 0645, Routine, DialysisIndications:ESRD (end stage renal disease) ([facility]),Secondary hyperparathyroidism ([facility]) Given 06/16/2023 6:41 EDT 2 Tablets epoetin ken (EPOGEN) 20,000 unit/2 mL injection 500 Units 500 Units, intravenous, ONCE IN DIALYSIS, 1 dose, On Wed06/16/23 at 0645, Routine, DialysisIndications:ESRD (end stage renal disease) ([facility]),Anemia of chronic renal failure, unspecified CKD stage Given 06/16/2023 6:41 EDT 500 Units heparin injection 9,000 Units 9,000 Units, intravenous, ONCE IN DIALYSIS, 1 dose, On Wed06/16/23 at 0645, Routine, Dialysis, Now x1 bolus 4500 units to be given at the beginning of dialysis 1500 units/hour to be given over the course of dialysis (9000 units total). Stop 1 hour prior to end of treatment. To be administered per Policy [id number].Indications:ESRD (end stage renal disease) (HCC-CMS) Given 06/16/2023 6:35 EDT 9,000 Units LiquaCel liquid protein liquid 30 mL 30 mL, oral, ONCE IN DIALYSIS, 1 dose, On Wed06/16/23 at 0645, RoutineIndications:Hypoalbuminemi a,ESRD (end stage renal disease) ([facility]) Given 06/16/2023 6:41 EDT 30 mL documented in this encounter Orders Dialysis Count Last Ordered Date First Orde red Date HEMODIALYSIS 1 06/16/2023 documented in this encounter Care Teams Railroad Firer Relationship Specialty Start Date End Date Adeola Villegas APRN [address] [place] [address] PCP - General 10/12/16 07/06/23 documented as of this encounter
--- OUTSIDE RECORDS SUMMARY | 2024-12-05 12:22 | XMS_ITS | Encounter Summary ---
Author Organization [facility] Address [address] [place] [address] Care Team Providers Care Hvac Technician Residential Name Role Phone Adeola Villegas APRN Primary Care Provider [phone] Encounter Details Date Type Department Care Team (Late st Contact Info) Description 06/16/2023 Documentation Visit [facility] [address] [place] [address] Shelley Eden, RD [address] [place] [address] Social History Tobacco Use Types Packs/Day Years [...] Progress Notes * Shelley Eden RD - 06/16/2023 1021 EDT Dialysis Dietitian's Monthly Assessment Met with patient on 06/07/23 Family/caregivers or others present: lives with his [...] cups a day. He is taking liquacel. Appetite: Good I can eat like a horse Appetite scale (0-10): No number given Gastrointestinal: No issues identified Skin integrity: Intact Diabetes: Yes does not check on bld sugars Diabetes Management: Self Monitoring of Blood Glucose on insulin but does not check Diet Recall: B none L blueberries D chix kabobs and rice Fluid: Water, Coffee, Milk, Juice Alcohol: will need to f/u Prescribed Weight:87 Post-Dialytic Weight: 86.3 06/04/2023 10:50 06/07/2023 10:54 06/09/2023 10:45 06/11/2023 10:44 06/14/2023 10:37 - ( Kg ) 86.7 87.2 86.7 86.7 86.3 UFR: 06/04/2023 10:50 06/07/2023 10:54 06/09/2023 10:45 06/11/2023 10:44 06/14/2023 10:37 - mL/Kg/hr 2 ml:kg:hr 6.8 ml:kg:hr 6.86 ml:kg:hr 4.88 ml:kg:hr 4.63 ml:kg:hr URR: 71.233 (Calculated from:; BUN Pre-Dialysis: 73 mg/dL at 05/31/2023 10:56; BUN Post-Dialysis: 21 mg/dL at 05/31/2023 10:56) Kt/V: 1.43 (Calculated from:; BUN Pre-Dialysis: 73 mg/dL at 05/31/2023 10:56; BUN Post-Dialysis: 21 mg/dL at 05/31/2023 10:56; Pre-Treatment Weight (kg): 89.7 at 05/31/2023 6:31; Post-Treatment Weight (kg): 87.8 at 05/31/2023 10:52; Duration of Treatment (minutes): 241 minutes at 05/31/2023 10:52) PCR: 1.27 (Calculated from:; BUN Pre-Dialysis: 73 mg/dL at 05/31/2023 10:56; BUN Post-Dialysis: 21 mg/dL at 05/31/2023 10:56; Pre-Treatment Weight (kg): 89.7 at 05/31/2023 6:31; Post-Treatment Weight (kg):87.8 at 05/31/2023 10:52; Duration of Treatment (minutes): 241 minutes at 05/31/2023 10:52; Age: 57 years) Pertinent Labs include: Lab Results Component Value Date LABALBU 3.4 05/31/2023 LABALBU 3.3 (L) 04/26/2023 Lab Results Component Value Date BUNPRE 73 (H) 05/31/2023 BUNPRE 73 (H) 05/31/2023 NA 138 05/31/2023 NA 137 04/26/2023 K 5.3 (H) 05/31/2023 K 5.6 (H) 04/26/2023 CL 103 05/31/2023 CL 100 04/26/2023 CO2 22 05/31/2023 CO2 23 04/26/2023 MG 2.5 05/31/2023 MG 2.4 04/26/2023 CALCIUM 8.7 05/31/2023 CALCIUM 8.9 04/26/2023 CALCCA 9.2 05/31/2023 CALCCA 9.5 04/26/2023 PHOS 8.2 (H) 05/31/2023 PHOS 7.2 (H) 04/26/2023 ALKPHOS 83 05/31/2023 ALKPHOS 88 04/26/2023 PTH 369 (H) 04/26/2023 PTH 239 (H) 01/25/2023 PLT 269 06/09/2023 PLT 256 06/02/2023 MCV 96 (H) 06/09/2023 MCV 96 (H) 06/02/2023 [id number] 11/16/2022 VITD 27 (L) 11/16/2022 FOLATE [...] fairly highly functioning Weight/Volume status: fluid gains 0.4-2.9 UFR 2-6 Electrolytes: All WNL Mineral Bone Disease: Ca [...] renal vitamin 4. Continue Vitamin D3 supplement 5. Cont tums at HD Shelley Eden RD, CD documented in this encounter Plan of Treatment Upcoming Encounters Date Type Department Care Team (Late st Contact Info) Description 12/06/2024 6:[address] [facility] D[facility]i [facility] [address] [place], [place] [phone] Carlota Jin MD 1 [facility], Level [address] [place] [address] 12/08/2024 6:[address] [facility] [address] [place], [place] [phone] Carlota Jin MD 1 [facility], [facility] 2 [place] [phone] 12/11/2024 6:[address] [facility] - [place] [address] [place], [place] [phone] Carlota Jin MD 1 [facility], [facility] 2 [place] [phone] 12/13/2024 6:[address] [facility] [place] [address] [place] [address] Carlota Jin MD 1 [facility], [address] [phone] 12/15/2024 6:[address] [facility] [place] [place] [address] [place], [place] [phone] Carlota Jin MD 1 [facility], [address] [phone] 12/18/2024 6:[address] [facility] [place] [address] [place] [address] Carlota Jin MD 1 [facility], [facility] 2 [place] [phone] 12/20/2024 6:[address] [facility] [place] [address] [place], [place] [phone] Carlota Jin MD 1 [facility], [facility] 2 [place] [phone] 12/22/2024 6:[address] [facility] - [place] [address] [place], [place] [phone] Carlota Jin MD 1 [facility], [facility] 2 [place] [phone] 12/25/2024 6:[address] [facility] [place] [place] [address] [place], [place] [phone] Carlota Jin MD 1 [facility], [facility] 2 [place] [phone] 12/27/2024 6:[address] [facility] [place] [address] [place], [place] [phone] Carlota Jin MD 1 [facility], [facility] 2 [place] [phone] 12/29/2024 6:[address] [facility] [place] [place] [address] [place], [place] [address] Carlota Jin MD 1 [facility], [facility] 2 [place] [phone] 01/01/2025 6:[address] [facility] [place] [address] [place], [place] [phone] Carlota Jin MD 1 [facility], [facility] 2 [place] [phone] 01/03/2025 6:[address] [facility] [place] [address] [place], [place] [phone] Carlota Jin MD 1 [facility], [facility] 2 [place] [phone] 01/05/2025 6:[address] [facility] [place] [address] [place] [address] Carlota Jin MD 1 [facility], [address] [phone] 01/08/2025 6:[address] [facility] [place] [place] [address] [place], [place] [phone] Carlota Jin MD 1 [facility], [address] [phone] 01/10/2025 6:[address] [facility] [place] [address] [place], [place] [phone] Carlota Jin MD 1 [facility], [address] [phone] 01/12/2025 6:[address] [facility] [place] [place] [address] [place], [place] [phone] Carlota Jin MD 1 [facility], [facility] 2 [place] [phone] 01/15/2025 6:[address] [facility] [place] [place] [address] [place], [place] [phone] Carlota Jin MD 1 [facility], [facility] 2 [place] [phone] 01/17/2025 6:[address] [facility] [place] [address] [place], [place] [phone] Carlota Jin MD 1 [facility], [facility] 2 [place] [phone] 01/19/2025 6:[address] [facility] [place] [address] [place], [place] [phone] Carlota Jin MD 1 [facility], [facility] 2 [place] [phone] 01/22/2025 6:[address] [facility] [place] [address] [place] [address] Carlota Jin MD 1 [facility], [address] [phone] 01/24/2025 6:[address] [facility] [place] [address] [place], [place] [phone] Carlota Jin MD 1 [facility], [facility] 2 [place] [phone] 01/26/2025 6:[address] [facility] [place] [address] [place], [place] [phone] Carlota Jin MD 1 [facility], [facility] 2 [place] [phone] 01/29/2025 6:[address] [facility] [place] [address] [place], [place] [address] Carlota Jin MD 1 [facility], [facility] 2 [place] [phone] 01/31/2025 6:[address] [facility] [place] [address] [place], [place] [phone] Carlota Jin MD 1 [facility], [facility] 2 [place] [phone] 02/02/2025 6:[address] [facility] [place] [address] [place], [place] [phone] Carlota Jin MD 1 [facility], [address] [phone] 02/05/2025 6:[address] [facility] [place] [address] [place], [place] [phone] Carlota Jin MD [address] [phone] 02/07/2025 6:[address] [facility] [place] [address] [place], [place] [phone] Carlota Jin MD [address] [phone] 02/09/2025 6:[address] [facility] [place] [address] [place], [place] [phone] Carlota Jin MD [address] [facility] 2 [place] [phone] 02/12/2025 6:[address] [facility] [place] [address] [place], [place] [phone] Carlota Jin MD 1 [facility], [facility] 2 [place] [phone] 02/14/2025 6:[address] [facility] [place] [address] [place], [place] [phone] Carlota Jin MD 1 [facility], [facility] 2 [place] [phone] 02/16/2025 6:[address] [facility] [place] [address] [place], [place] [phone] Carlota Jin MD 1 [facility], [facility] 2 [place] [phone] 02/19/2025 6:[address] [facility] [place] [address] [place], [place] [phone] Carlota Jin MD 1 [facility], [facility] 2 [place] [phone] 02/21/2025 6:[address] [facility] [place] [place] [address] [place], [place] [phone] Carlota Jin MD 1 [facility], [facility] 2 [place] [phone] documented as of this encounter Visit Diagnoses Not on filedocumented in this encounter Care Teams Hvac Technician Residential Relationship Specialty Start Date End Date Adeola Villegas APRN [address] [place] [address] PCP - General 10/12/16 07/06/23 documented as of this encounter
--- OUTSIDE RECORDS SUMMARY | 2024-12-05 12:22 | XMS_ITS | Encounter Summary ---
Author Organization [facility] Address [address] [place] [address] Care Team Providers Care Plating Tank Operator Name Role Phone Adeola Villegas APRN Primary Care Provider [phone] Encounter Details Date Type Department Care Team (Latest Contact Info) Description 06/14/2023 6:[address] [facility] [address] [place] [address] Carlota Jin MD 1 [facility], Level [address] [place] [phone] ESRD (end stage renal disease) ([facility]) (Primary Dx); Anemia of chronic renal failure, unspecified CKD stage; Hypoalbuminemia; Secondary hyperparathyroidism ([facility]) Social History Tobacco Use Types Packs/Day [...] - Temperature - - Respiratory Rate 16 06/14/2023 0623 EDT Oxygen Saturation - - Inhaled Oxygen Concentration - - Weight 87.9 kg (193 lb 12.6 oz) 06/14/2023 0623 EDT Height - - Body Mass Index 28.21 01/25/2023 0751 EDT documented in this encounter Miscellaneous Notes * Flowsheet Note - Marcela Cox RN - 06/14/2023 1309 EDT 06/14/23 1037 Post-Hemodialysis Assessment Total Blood Processed (L) 89.98 Liters On Line Clearance: spKt/V 1.5 spKt/V Dialyzer Clearance Lightly streaked Treatment UFR (ml:kg:hr) 4.63 ml:kg:hr Critline refill Not done Fluid Removed (L) 1.5 L Post-Dialysis Scale Weight 86.3 kg (190 lb 4.1 oz) Wheelchair Weight 0 kg (0 lb) Prosthesis Weight 0 kg (0 lb) Post-Treatment Weight (kg) 86.3 Treatment Weight Change (kg) 1.6 kg Day Target Weight (kg) 86.9 Post Sitting/Lying BP 157/83 Post Sitting/Lying pulse 68 Post Standing BP 145/79 Post Standing Pulse 76 Temp 36.6 ??C (97.9 ??F) Temp src [...] Removed 1.5L UF goal without difficulty. Comments No issues during tx, no concerns voiced post tx. documented in this encounter Plan of Treatment Upcoming Encounters Date Type Department Care Team (Late st Contact Info) Description 12/06/2024 6:45 EST Treatment [facility] [address] [place] [phone] Carlota Jin MD 1 [facility], Level [address] [place] [phone] 12/08/2024 6:45 EST Treatment [facility] [address] [place] [phone] Carlota Jin MD 1 [facility], [facility] 2 [place] [phone] 12/11/2024 6:45 EST Treatment [facility] - [place] [address] [place], [place] [phone] Carlota Jin MD 1 [facility], [facility] 2 [place] [phone] 12/13/2024 6:45 EST Treatment [facility] [place] [address] [place], [place] [phone] Carlota Jin MD 1 [facility], [facility] 2 [place] [phone] 12/15/2024 6:45 EST Treatment [facility] [place] [address] [place], [place] [phone] Carlota Jin MD 1 [facility], [facility] 2 [place] [phone] 12/18/2024 6:45 EST Treatment [facility] [address] [place], [place] [phone] Carlota Jin MD 1 [facility], [facility] 2 [place] [phone] 12/20/2024 6:45 EST Treatment [facility] [place] [address] [place], [place] [phone] Carlota Jin MD 1 [facility], [facility] 2 [place] [phone] 12/22/2024 6:45 EST Treatment [facility] [place] [address] [place], [place] [phone] Carlota Jin MD 1 [facility], [facility] 2 [place] [phone] 12/25/2024 6:45 EST Treatment [facility] [place] [address] [place], [place] [phone] Carlota Jin MD 1 [facility], [facility] 2 [place] [phone] 12/27/2024 6:45 EST Treatment [facility] [place] [place] [address] [place], [place] [phone] Carlota Jin MD 1 [facility], [facility] 2 [place] [phone] 12/29/2024 6:45 EST Treatment [facility] [place] [address] [place], [place] [phone] Carlota Jin MD 1 [facility], [facility] 2 [place] [phone] 01/01/2025 6:45 EDT Treatment [facility] [place] [address] [place], [place] [phone] Carlota Jin MD 1 [facility], [facility] 2 [place] [phone] 01/03/2025 6:45 EDT Treatment [facility] [place] [address] [place] [address] Carlota Jin MD 1 [facility], [facility] 2 [place] [phone] 01/05/2025 6:45 EDT Treatment [facility] [place] [address] [place], [place] [phone] Carlota Jin MD 1 [facility], [facility] 2 [place] [phone] 01/08/2025 6:45 EDT Treatment [facility] [place] [address] [place] [address] Carlota Jin MD 1 [facility], [address] [phone] 01/10/2025 6:45 EDT Treatment [facility] [place] [address] [place], [place] [phone] Carlota Jin MD 1 [facility], [address] [phone] 01/12/2025 6:45 EDT Treatment [facility] [place] [address] [place] [address] Carlota Jin MD 1 [facility], [facility] 2 [place] [phone] 01/15/2025 6:45 EDT Treatment [facility] [place] [address] [place], [place] [phone] Carlota Jin MD 1 [facility], [facility] 2 [place] [phone] 01/17/2025 6:45 EDT Treatment [facility] [place] [address] [place], [place] [address] Carlota Jin MD 1 [facility], [facility] 2 [place] [phone] 01/19/2025 6:45 EDT Treatment [facility] [place] [address] [place], [place] [phone] Carlota Jin MD [address] [place] [address], [facility] 2 [place] [phone] 01/22/2025 6:45 EDT Treatment [facility] [place] [address] [place], [place] [address] Carlota Jin MD 1 [facility], [facility] 2 [place] [phone] 01/24/2025 6:45 EDT Treatment [facility] [place] [address] [place], [place] [address] Carloat Jin MD [address] [place] [address], [facility] 2 [place] [phone] 01/26/2025 6:45 EDT Treatment [facility] [place] [address] [place], [place] [phone] Carlota Jin MD [address] [place] [address], [facility] 2 [place] [phone] 01/29/2025 6:45 EDT Treatment [facility] [place] [address] [place], [place] [address] Carlota Jin MD 1 [facility], [address] [phone] 01/31/2025 6:45 EDT Treatment [facility] [place] [address] [place] [address] Carlota Jin MD 1 [facility], [address] [phone] 02/02/2025 6:45 EDT Treatment [facility] - [place] [address] [place], [place] [phone] Carlota Jin MD 1 [facility], [address] [phone] 02/05/2025 6:45 EDT Treatment [facility] [place] [address] [place], [place] [phone] Carlota Jin MD 1 [facility], [address] [phone] 02/07/2025 6:45 EDT Treatment [facility] [place] - [place] [address] [place], [place] [phone] Carlota Jin MD [address] [phone] 02/09/2025 6:45 EDT Treatment [facility] [place] [address] [place], [place] [phone] Carlota Jin MD 1 [facility], [facility] 2 [place] [phone] 02/12/2025 6:45 EDT Treatment [facility] [place] [address] [place], [place] [phone] Carlota Jin MD 1 [facility], [facility] 2 [place] [phone] 02/14/2025 6:45 EDT Treatment [facility] [place] [address] [place], [place] [phone] Carlota Jin MD 1 [facility], [address] [phone] 02/16/2025 6:45 EDT Treatment [facility] [place] [address] [place], [place] [phone] Carlota Jin MD [address] [phone] 02/19/2025 6:45 EDT Treatment [facility] [place] [address] [place], [place] [phone] Carlota Jin MD 1 [facility], [address] [phone] 02/21/2025 6:45 EDT Treatment [facility] [place] [address] [place], [place] [phone] Carlota Jin MD 1 [facility], [facility] 2 [place] [phone] documented as of this encounter Procedures Procedure Name Priority Date/Time Associated Diagnosis Comments HEMODIALYSIS Routine 06/14/2023 6:23 EDT ESRD (end stage renal disease) ([facility]) documented in this encounter Visit Diagnoses Diagnosis ESRD (end stage renal disease) ([facility])- Primary End stage renal disease Anemia of chronic renal failure, unspecified CKD stage Hypoalbuminemia Other disorders of plasma protein metabolism Secondary hyperparathyroidism ([facility]) Secondary hyperparathyroidism (of renal origin) documented in this encounter Administered Medications Inactive Administered Medications - up to 3 most recent administrations Medication Order MAR Action Action Date Dose Rate Site calcium carbonate (TUMS) tablet 500 mg (200 mg elemental calcium) 2 Tablet 2 Tablet, oral, ONCE IN DIALYSIS, 1 dose, On Wed06/14/23 at 0645, Routine, DialysisIndications:ESRD (end stage renal disease) ([facility]),Secondary hyperparathyroidism ([facility]) Given 06/14/2023 6:42 EDT 2 Tablets epoetin ken (EPOGEN) 20,000 unit/2 mL injection 500 Units 500 Units, intravenous, ONCE IN DIALYSIS, 1 dose, On Wed06/14/23 at 0645, Routine, DialysisIndications:ESRD (end stage renal disease) ([facility]),Anemia of chronic renal failure, unspecified CKD stage Given 06/14/2023 6:42 EDT 500 Units heparin injection 9,000 Units 9,000 Units, intravenous, ONCE IN DIALYSIS, 1 dose, On Wed06/14/23 at 0645, Routine, Dialysis, Now x1 bolus 4500 units to be given at the beginning of dialysis 1500 units/hour to be given over the course of dialysis (9000 units total). Stop 1 hour prior to end of treatment. To be administered per Policy [id number].Indications:ESRD (end stage renal disease) ([facility]) Given 06/14/2023 6:40 EDT 9,000 Units LiquaCel liquid protein liquid 30 mL 30 mL, oral, ONCE IN DIALYSIS, 1 dose, On Wed06/14/23 at 0645, RoutineIndications:Hypoalbuminemi a,ESRD (end stage renal disease) ([facility]) Given 06/14/2023 6:42 EDT 30 mL documented in this encounter Orders Dialysis Count Last Ordered Date First Orde red Date HEMODIALYSIS 1 06/14/2023 documented in this encounter Care Teams Plating Tank Operator Relationship Specialty Start Date End Date Adeola Villegas APRN [address] [place] [address] PCP - General 10/12/16 07/06/23 documented as of this encounter
--- OUTSIDE RECORDS SUMMARY | 2024-12-05 12:22 | XMS_ITS | Encounter Summary ---
Author Organization [facility] Address [address] [place] [address] Care Team Providers Care Car Ferry Master Name Role Phone Adeola Villegas APRN Primary Care Provider [phone] Encounter Details Date Type Department Care Team (Latest Contact Info) Description 06/21/2023 6:45 EDT Treatment [facility] [address] [place] [address] Carlota Jin MD 1 [facility], Level [address] [place] [address] ESRD (end stage renal disease) ([facility]) (Primary Dx); Anemia of chronic renal failure, unspecified CKD stage; Hypoalbuminemia; Secondary hyperparathyroidism ([facility]) Social History Tobacco Use Types Packs/Day Years [...] - Temperature - - Respiratory Rate 16 06/21/2023 0628 EDT Oxygen Saturation - - Inhaled Oxygen Concentration - - Weight 90.8 kg (200 lb 2.8 oz) 06/21/2023 0628 E DT Height - - Body Mass Index 29.14 01/25/2023 0751 EDT documented in this encounter Miscellaneous Notes * Flowsheet Note - Marcela Cox RN - 06/21/2023 1121 EDT 06/21/23 1052 Post-Hemodialysis Assessment Total Blood Processed (L) 90.27 Liters On Line Clearance: spKt/V 1.52 spKt/V Dialyzer Clearance Lightly streaked Treatment UFR (ml:kg:hr) 9.61 ml:kg:hr Critline refill Not done Fluid Removed (L) 3.5 L Post-Dialysis Scale Weight 87.4 kg (192 lb 10.9 oz) Wheelchair Weight 0 kg (0 lb) Prosthesis Weight 0 kg (0 lb) Post-Treatment Weight (kg) 87.4 Treatment Weight Change (kg) 3.4 kg Day Target Weight (kg) 87.8 Post Sitting/Lying BP 158/83 Post Sitting/Lying pulse 67 Post Standing BP 134/72 Post Standing Pulse 71 Temp 35.8 ??C (96.4 ??F) Temp src [...] [facility] [place] [address] [place], [place] [id number] Carlota Jin MD 1 [facility], Level [address] [place] [address] 12/08/2024 6:45 EST Treatment [facility] [place] [address] [place], [place] [address] Carlota Jin MD 1 [facility], Level [address] [place] [phone] 12/11/2024 6:45 EST Treatment [facility] [place] [address] [place], [place] [address] Carlota Jin MD 1 [facility] [place] [phone] 12/13/2024 6:45 EST Treatment [facility] [place] [address] [place], [place] [phone] Carlota Jin MD 1 [facility], [facility] [address] [place] [phone] 12/15/2024 6:45 EST Treatment [facility] [place] [address] [place], [place] [id number] Carlota Jin MD 1 [facility] [address] [place] [phone] 12/18/2024 6:45 EST Treatment [facility] [place] [address] [place] [address] Carlota Jin MD 1 [facility] [place] [phone] 12/20/2024 6:45 EST Treatment [facility] [place] [address] [place], [place] [phone] Carlota Jin MD 1 [facility] [address] [place] [phone] 12/22/2024 6:45 EST Treatment [facility] [place] [address] [place], [place] [phone] Carlota Jin MD 1 [facility], [facility] [place] [phone] 12/25/2024 6:45 EST Treatment [facility] [place] [address] [place], [place] [id number] Carlota Jin MD 1 [facility], [facility] [address] [place] [phone] 12/27/2024 6:45 EST Treatment [facility] [place] [address] [place], [place] [id number] Carlota Jin MD 1 [facility], [facility] [address] [place] [phone] 12/29/2024 6:45 EST Treatment [facility] [place] [address] [place], [place] [phone] Carlota Jin MD 1 [facility], [facility] [address] [place] [phone] 01/01/2025 6:45 EDT Treatment [facility] [place] [address] [place], [place] [id number] Carlota Jin MD 1 [facility], [facility] [address] [place] [phone] 01/03/2025 6:45 EDT Treatment [facility] [place] [address] [place], [place] [phone] Carlota Jin MD 1 [facility] [address] [place] [phone] 01/05/2025 6:45 EDT Treatment [facility] [place] [address] [place], [place] [address] Carlota Jin MD 1 [facility] [address] [place] [phone] 01/08/2025 6:45 EDT Treatment [facility] [place] [address] [place], [place] [phone] Carlota Jin MD 1 [facility], [facility] [address] [place] [phone] 01/10/2025 6:45 EDT Treatment [facility] [place] [address] [place] [address] Carlota Jin MD 1 [facility], [facility] [address] [place] [phone] 01/12/2025 6:45 EDT Treatment [facility] [address] [place] [address] Carlota Jin MD 1 [facility], [facility] [address] [place] [phone] 01/15/2025 6:45 EDT Treatment [facility] [place] [address] [place], [place] [phone] Carlota Jin MD 1 [facility], [facility] [address] [place] [phone] 01/17/2025 6:45 EDT Treatment [facility] [place] [address] [place], [place] [phone] Carlota Jin MD 1 [facility], [facility] [address] [place] [phone] 01/19/2025 6:45 EDT Treatment [facility] [place] [address] [place], [place] [phone] Carlota Jin MD 1 [facility], [facility] [address] [place] [phone] 01/22/2025 6:45 EDT Treatment [facility] [place] [address] [place] [address] Carlota Jin MD 1 [facility], [facility] [address] [place] [phone] 01/24/2025 6:45 EDT Treatment [facility] [place] [address] [place], [place] [phone] Carlota Jin MD 1 [facility], [facility] [address] [place] [phone] 01/26/2025 6:45 EDT Treatment [facility] [place] [address] [place], [place] [phone] Carlota Jin MD 1 [facility], [facility] [address] [place] [phone] 01/29/2025 6:45 EDT Treatment [facility] [place] [address] [place] [address] Carl[address] Jin MD 1 [facility], [facility] [place] [phone] 01/31/2025 6:45 EDT Treatment [facility] [place] [address] [place], [place] [phone] Carlota Jin MD 1 [facility] [place] [phone] 02/02/2025 6:45 EDT Treatment [facility] [place] [address] [place] [address] Carlota Jin MD 1 [facility], [address] [phone] 02/05/2025 6:45 EDT Treatment [facility] [place] [address] [place], [place] [phone] Carlota Jin MD 1 [facility], [address] [phone] 02/07/2025 6:45 EDT Treatment [facility] [place] [address] [place] [address] Cralota Jin MD 1 [facility], [facility] [place] [phone] 02/09/2025 6:45 EDT Treatment [facility] [place] [address] [place], [place] [phone] Carlota Jin MD 1 [facility], [facility] [address] [place] [phone] 02/12/2025 6:45 EDT Treatment [facility] [place] [address] [place], [place] [phone] Carlota Jin MD 1 [facility], [address] [phone] 02/14/2025 6:45 EDT Treatment [facility] [place] [address] [place], [place] [phone] Carlota Jin MD [address] [place] [address], [address] [phone] 02/16/2025 6:45 EDT Treatment [facility] [place] [address] [place], [place] [phone] Carlota Jin MD 1 [facility], [address] [phone] 02/19/2025 6:45 EDT Treatment [facility] [place] [address] [place], [place] [phone] Carlota Jin MD [address] [place] [address], [address] [phone] 02/21/2025 6:45 EDT Treatment [facility] [address] [place], [place] [phone] Carlota Jin MD 1 [facility], [address] [phone] documented as of this encounter Procedures Procedure Name Priority Date/Time Associated Diagnosis Comments HEMODIALYSIS Routine 06/21/2023 6:28 EDT ESRD (end stage renal disease) ([facility]) documented in this encounter Visit Diagnoses Diagnosis ESRD (end stage renal disease) ([facility])- Primary End stage renal disease Anemia of chronic renal failure, unspecified CKD stage Hypoalbuminemia Other disorders of plasma protein metabolism Secondary hyperparathyroidism ([facility]) Secondary hyperparathyroidism (of renal origin) documented in this encounter Administered Medications Inactive Administered Medications - up to 3 most recent administrations Medication Order MAR Action Action Date Dose Rate Site calcium carbonate (TUMS) tablet 500 mg (200 mg elemental calcium) 2 Tablet 2 Tablet, oral, ONCE IN DIALYSIS, 1 dose, On Wed06/21/23 at 0645, Routine, DialysisIndications:ESRD (end stage renal disease) ([facility]),Secondary hyperparathyroidism ([facility]) Given 06/21/2023 6:40 EDT 2 Tablets epoetin ken (EPOGEN) 20,000 unit/2 mL injection 500 Units 500 Units, intravenous, ONCE IN DIALYSIS, 1 dose, On Wed06/21/23 at 0645, Routine, DialysisIndications:ESRD (end stage renal disease) ([facility]),Anemia of chronic renal failure, unspecified CKD stage Given 06/21/2023 6:38 EDT 500 Units heparin injection 9,000 Units 9,000 Units, intravenous, ONCE IN DIALYSIS, 1 dose, On Wed06/21/23 at 0645, Routine, Dialysis, Now x1 bolus 4500 units to be given at the beginning of dialysis 1500 units/hour to be given over the course of dialysis (9000 units total). Stop 1 hour prior to end of treatment. To be administered per Policy [id number].Indications:ESRD (end stage renal disease) ([facility]) Given 06/21/2023 6:38 EDT 9,000 Units LiquaCel liquid protein liquid 30 mL 30 mL, oral, ONCE IN DIALYSIS, 1 dose, On Wed06/21/23 at 0645, RoutineIndications:Hypoalbuminemi a,ESRD (end stage renal disease) ([facility]) Given 06/21/2023 6:40 EDT 30 mL documented in this encounter Orders Dialysis Count Last Ordered Date First Orde red Date HEMODIALYSIS 1 06/21/2023 documented in this encounter Care Teams Car Ferry Master Relationship Specialty Start Date End Date Adeola Villegas APRN [address] [place] [address] PCP - General 10/12/16 07/06/23 documented as of this encounter
--- OUTSIDE RECORDS SUMMARY | 2024-12-05 12:22 | XMS_ITS | Encounter Summary ---
Author Organization [facility] Address [address] [place] [address] Care Team Providers Care Director Of Recruiting Name Role Phone Adeola Villegas APRN Primary Care Provider Encounter Details Date Type Department Care Team (Latest Contact Info) Description 06/18/2023 6:45 EDT Treatment [facility] [address] [place] [address] Carlota Jni MD 1 [facility], Level [address] [place] [phone] ESRD (end stage renal disease) ([facility]) (Primary Dx); Anemia of chronic renal failure, unspecified CKD stage; Hypoalbuminemia; Secondary hyperparathyroidism ([facility]) Social History Tobacco Use Types Packs/Day [...] - Temperature - - Respiratory Rate 18 06/18/2023 0626 EDT Oxygen Saturation - - Inhaled Oxygen Concentration - - Weight 88.8 kg (195 lb 12.3 oz) 06/18/2023 0626 EDT Height - - Body Mass Index 28.5 01/25/2023 0751 EDT documented in this encounter Miscellaneous Notes * Flowsheet Note - Teto Ribeiro RN - 06/18/2023 1118 EDT 06/18/23 1049 Post-Hemodialysis Assessment Total Blood Processed (L) 90.45 Liters On Line Clearance: spKt/V 1.41 spKt/V Dialyzer Clearance Lightly streaked Treatment UFR (ml:kg:hr) 5.91 ml:kg:hr Critline refill Not done Fluid Removed (L) 2.3 L Post-Dialysis Scale Weight 86.7 kg (191 lb 2.2 oz) Wheelchair Weight 0 kg (0 lb) Prosthesis Weight 0 kg (0 lb) Post-Treatment Weight (kg) 86.7 Treatment Weight Change (kg) 2.1 kg Day Target Weight (kg) 87 Post Sitting/Lying BP 167/84 Post Sitting/Lying pulse 64 Post Standing BP 159/85 Post Standing Pulse 69 Temp 36.2 ??C (97.2 ??F) Temp src Temporal Post access assessment AVF/AFG Hemostasis achieved Yes Note 10 min hold Orientation Alert and Oriented x3 Yes Time Yes Place Yes Person Yes Cooperative Yes Disoriented No Discharge Ambulation Methods Ambulatory with assistive device Ambulation device Other (Comment) (walking stick) Wrap up items Patient Response to Treatment Teri. tx well, removed 2.3L Comments No complaints, no s/s of distress noted, VSS upon d/c documented in this encounter Plan of Treatment Upcoming Encounters Date Type Department Care Team (Late st Contact Info) Description 12/06/2024 6:45 EST Treatment [facility] [address] [place], [place] [phone] Carlota Jin MD 1 [facility], [address] [place] [address] 12/08/2024 6:45 EST Treatment [facility] [address] [place], [place] [phone] Carlota Jin MD 1 [facility], [facility] 2 [place] [phone] 12/11/2024 6:45 EST Treatment [facility] [place] [address] [place], [place] [phone] Carlota Jin MD 1 [facility], [facility] 2 [place] [phone] 12/13/2024 6:45 EST Treatment [facility] [place] [address] [place] [address] Carlota Jin MD 1 [facility], [address] [phone] 12/15/2024 6:45 EST Treatment [facility] [place] [address] [place], [place] [phone] Carlota Jin MD 1 [facility], [address] [phone] 12/18/2024 6:45 EST Treatment [facility] [place] [address] [place] [address] Carlota Jin MD 1 [facility], [facility] 2 [place] [phone] 12/20/2024 6:45 EST Treatment [facility] [place] [address] [place], [place] [phone] Carlota Jin MD 1 [facility], [facility] 2 [place] [phone] 12/22/2024 6:45 EST Treatment [facility] [place] [address] [place], [place] [phone] Carlota Jin MD 1 [facility], [facility] 2 [place] [phone] 12/25/2024 6:45 EST Treatment [facility] [place] [address] [place], [place] [phone] Carlota Jin MD 1 [facility], [facility] 2 [place] [phone] 12/27/2024 6:45 EST Treatment [facility] [place] [address] [place], [place] [phone] Carlota Jin MD 1 [facility], [facility] 2 [place] [phone] 12/29/2024 6:45 EST Treatment [facility] [place] [address] [place], [place] [phone] Carlota Jin MD 1 [facility], [facility] 2 [place] [phone] 01/01/2025 6:45 EDT Treatment [facility] [place] [address] [place], [place] [phone] Carlota Jin MD 1 [facility], [facility] 2 [place] [phone] 01/03/2025 6:45 EDT Treatment [facility] [place] [address] [place], [place] [phone] Carlota Jin MD 1 [facility], [facility] 2 [place] [phone] 01/05/2025 6:45 EDT Treatment [facility] [place] [address] [place] [address] Carlota Jin MD 1 [facility], [address] [phone] 01/08/2025 6:45 EDT Treatment [facility] [place] [address] [place], [place] [phone] Carlota Jin MD 1 [facility], [address] [phone] 01/10/2025 6:45 EDT Treatment [facility] [place] [address] [place], [place] [phone] Carlota Jin MD 1 [facility], [address] [phone] 01/12/2025 6:45 EDT Treatment [facility] [place] [address] [place], [place] [phone] Carlota Jin MD 1 [facility], [facility] 2 [place] [phone] 01/15/2025 6:45 EDT Treatment [facility] [place] [address] [place], [place] [phone] Carlota Jin MD 1 [facility], [facility] 2 [place] [phone] 01/17/2025 6:45 EDT Treatment [facility] [place] [address] [place], [place] [phone] Carlota Jin MD 1 [facility], [facility] 2 [place] [phone] 01/19/2025 6:45 EDT Treatment [facility] [place] [address] [place], [place] [phone] Carlota Jin MD 1 [facility], [facility] 2 [place] [phone] 01/22/2025 6:45 EDT Treatment [facility] [place] [address] [place] [address] Carlota Jin MD 1 [facility], [address] [phone] 01/24/2025 6:45 EDT Treatment [facility] [place] [address] [place], [place] [phone] Carlota Jin MD 1 [facility], [facility] 2 [place] [phone] 01/26/2025 6:45 EDT Treatment [facility] [place] [address] [place], [place] [phone] Carlota Jin MD 1 [facility], [facility] 2 [place] [phone] 01/29/2025 6:45 EDT Treatment [facility] [place] [address] [place], [place] [id number] Carlota Jin MD 1 [facility], [facility] 2 [place] [phone] 01/31/2025 6:45 EDT Treatment [facility] [place] [address] [place], [place] [phone] Carlota Jin MD 1 [facility], [facility] 2 [place] [phone] 02/02/2025 6:45 EDT Treatment [facility] [place] [address] [place], [place] [phone] Carlota Jin MD 1 [facility], [address] [phone] 02/05/2025 6:45 EDT Treatment [facility] [place] [address] [place], [place] [phone] Carlota Jin MD [address] [phone] 02/07/2025 6:45 EDT Treatment [facility] [place] [address] [place], [place] [phone] Carlota Jin MD [address] [phone] 02/09/2025 6:45 EDT Treatment [facility] [place] [address] [place], [place] [phone] Carolta Jin MD 1 [facility] 2 [place] [phone] 02/12/2025 6:45 EDT Treatment [facility] [place] [address] [place], [place] [phone] Carlota Jin MD 1 [facility], [facility] 2 [place] [phone] 02/14/2025 6:45 EDT Treatment [facility] [place] [address] [place], [place] [phone] Carlota Jin MD 1 [facility], [facility] 2 [place] [phone] 02/16/2025 6:45 EDT Treatment [facility] [place] [address] [place], [place] [phone] Carlota Jin MD 1 [facility], [facility] 2 [place] [phone] 02/19/2025 6:45 EDT Treatment [facility] [place] [address] [place] [address] Carlota Jin MD 1 [facility], [facility] 2 [place] [phone] 02/21/2025 6:45 EDT Treatment [facility] [place] [address] [place], [place] [phone] Carlota Jin MD 1 [facility], [facility] 2 [place] [phone] documented as of this encounter Procedures Procedure Name Priority Date/Time Associated Diagnosis Comments HEMODIALYSIS Routine 06/18/2023 6:29 EDT ESRD (end stage renal disease) ([facility]) documented in this encounter Visit Diagnoses Diagnosis ESRD (end stage renal disease) ([facility])- Primary End stage renal disease Anemia of chronic renal failure, unspecified CKD stage Hypoalbuminemia Other disorders of plasma protein metabolism Secondary hyperparathyroidism ([facility]) Secondary hyperparathyroidism (of renal origin) documented in this encounter Administered Medications Inactive Administered Medications - up to 3 most recent administrations Medication Order MAR Action Action Date Dose Rate Site calcium carbonate (TUMS) tablet 500 mg (200 mg elemental calcium) 2 Tablet 2 Tablet, oral, ONCE IN DIALYSIS, 1 dose, On Wed06/18/23 at 0645, Routine, DialysisIndications:ESRD (end stage renal disease) ([facility]),Secondary hyperparathyroidism ([facility]) Given 06/18/2023 6:45 EDT 2 Tablets epoetin ken (EPOGEN) 20,000 unit/2 mL injection 500 Units 500 Units, intravenous, ONCE IN DIALYSIS, 1 dose, On Wed06/18/23 at 0645, Routine, DialysisIndications:ESRD (end stage renal disease) ([facility]),Anemia of chronic renal failure, unspecified CKD stage Given 06/18/2023 6:45 EDT 500 Units heparin injection 9,000 Units 9,000 Units, intravenous, ONCE IN DIALYSIS, 1 dose, On Wed06/18/23 at 0645, Routine, Dialysis, Now x1 bolus 4500 units to be given at the beginning of dialysis 1500 units/hour to be given over the course of dialysis (9000 units total). Stop 1 hour prior to end of treatment. To be administered per Policy [id number].Indications:ESRD (end stage renal disease) ([facility]) Given 06/18/2023 6:44 EDT 9,000 Units LiquaCel liquid protein liquid 30 mL 30 mL, oral, ONCE IN DIALYSIS, 1 dose, On Wed06/18/23 at 0645, RoutineIndications:Hypoalbuminemi a,ESRD (end stage renal disease) ([facility]) Given 06/18/2023 6:45 EDT 30 mL documented in this encounter Orders Dialysis Count Last Ordered Date First Orde red Date HEMODIALYSIS 1 06/18/2023 documented in this encounter Care Teams Director Of Recruiting Relationship Specialty Start Date End Date Adeola Villegas APRN [address] [place] [address] PCP - General 10/12/16 07/06/23 documented as of this encounter
--- OUTSIDE RECORDS SUMMARY | 2024-12-05 12:22 | XMS_ITS | Encounter Summary ---
Author Organization [facility] Address [address] [place] [address] Care Team Providers Care Credit Support Specialist Name Role Phone Adeola Villegas APRN Primary Care Provider Encounter Details Date Type Department Care Team (Latest Contact Info) Description 06/09/2023 6:45 EDT Treatment [facility] [address] [place] [address] Carolta Jin MD 1 [facility], Level [address] [place] [phone] ESRD (end stage renal disease) ([facility]) (Primary Dx); Anemia of chronic renal failure, unspecified CKD stage; Hypoalbuminemia; Secondary hyperparathyroidism ([facility]) Social History Tobacco Use [...] - Temperature - - Respiratory Rate 16 06/09/2023 0627 EDT Oxygen Saturation - - Inhaled Oxygen Concentration - - Weight 89.1 kg (196 lb 6.9 oz) 06/09/2023 0627 E DT Height - - Body Mass Index 28.59 01/25/2023 0751 EDT documented in this encounter Miscellaneous Notes * Flowsheet Note - Teto Ribeiro RN - 06/09/2023 1142 EDT 06/09/23 1045 Post-Hemodialysis Assessment Total Blood Processed (L) 89.13 Liters On Line Clearance: spKt/V 1.44 spKt/V Dialyzer Clearance Lightly streaked Treatment UFR (ml:kg:hr) 6.86 ml:kg:hr Final Critline Profile (%/hr) -2.06 Final Profile Profile A Critline refill Negative Fluid Removed (L) 2.6 L Post-Dialysis Scale Weight 86.7 kg (191 lb 2.2 oz) Wheelchair Weight 0 kg (0 lb) Prosthesis Weight 0 kg (0 lb) Post-Treatment Weight (kg) 86.7 Treatment Weight Change (kg) 2.4 kg Day Target Weight (kg) 87 Post Sitting/Lying BP 169/85 Post Standing BP 142/77 Post Standing Pulse 78 Temp 36.5 ??C (97.7 ??F) Temp src Temporal Post access assessment AVF/AFG Hemostasis achieved Yes Note 10 min hold Orientation Alert and Oriented x3 Yes Time Yes Place Yes Person Yes Cooperative Yes Disoriented No Discharge Ambulation Methods Ambulatory without assistance Wrap up items Patient Response to Treatment Teri. tx well, removed 2.6L Comments No complaints post tx, no s/s of distress noted, VSS upon d/c documented in this encounter Plan of Treatment Upcoming Encounters Date Type Department Care Team (Late st Contact Info) Description 12/06/2024 6:45 EST Treatment [facility] [address] [place], [place] [id number] Carlota Jin MD 1 [facility], [address] [place] [address] 12/08/2024 6:45 EST Treatment [facility] [address] [place], [place] [id number] Carlota Jin MD 1 [facility] [address] [place] [phone] 12/11/2024 6:45 EST Treatment [facility] Dialysi - [place] [address] [place], [place] [id number] Carlota Jin MD 1 [facility], [facility] [address] [place] [phone] 12/13/2024 6:45 EST Treatment [facility] D[facility] - [place] [address] [place] [address] Carlota Jin MD 1 [facility], [address] [phone] 12/15/2024 6:45 EST Treatment [facility] Dialysi - [place]ñ [address] [place], [place] [id number] Carlota Jin MD 1 [facility], [address] [phone] 12/18/2024 6:45 EST Treatment [facility] - [place] [address] [place] [address] Carlota Jin MD 1 [facility], [facility] [address] [place] [phone] 12/20/2024 6:45 EST Treatment [facility] - [place] [address] [place], [place] [id number] Carlota Jin MD 1 [facility], [facility] 2 [place] [phone] 12/22/2024 6:45 EST Treatment [facility] - [place] [address] [place], [place] [id number] Carlota Jin MD 1 [facility], [facility] [address] [place] [phone] 12/25/2024 6:45 EST Treatment [facility] Dialys[facility] - [place] [address] [place], [place] [id number] Carlota Jin MD 1 [facility], [facility] [address] [place] [phone] 12/27/2024 6:45 EST Treatment [facility] - [place] [address] [place], [place] [id number] Carlota Jin MD 1 [facility], [facility] [address] [place] [phone] 12/29/2024 6:45 EST Treatment [facility] Dialys[facility] - [place] [address] [place], [place] [address] Carlota Jin MD 1 [facility], [facility] [address] [place] [phone] 01/01/2025 6:45 EDT Treatment [facility] - [place] [address] [place], [place] [id number] Carlota Jin MD 1 [facility], [facility] [address] [place] [phone] 01/03/2025 6:45 EDT Treatment [facility] - [place] [address] [place], [place] [id number] Carlota Jin MD 1 [facility], [facility] [address] [place] [phone] 01/05/2025 6:45 EDT Treatment [facility] D[facility] - [place] [address] [place] [address] Carlota Jin MD 1 [facility], [address] [phone] 01/08/2025 6:45 EDT Treatment [facility] - [place] [address] [place], [place] [id number] Carlota Jin MD 1 [facility], [address] [phone] 01/10/2025 6:45 EDT Treatment [facility] Dialys[facility] - [place] [address] [place], [place] [id number] Carlota Jin MD 1 [facility], [address] [phone] 01/12/2025 6:45 EDT Treatment [facility] - [place] [address] [place], [place] [id number] Carlota Jin MD 1 [facility], [facility] [address] [place] [phone] 01/15/2025 6:45 EDT Treatment [facility] - [place] [address] [place], [place] [id number] Carlota Jin MD 1 [facility], [facility] [address] [place] [phone] 01/17/2025 6:45 EDT Treatment [facility] - [place] [address] [place], [place] [id number] Carlota Jin MD 1 [facility], [facility] [address] [place] [phone] 01/19/2025 6:45 EDT Treatment [facility] - [place] [address] [place], [place] [id number] Carlota Jin MD 1 [facility], [facility] [address] [place] [phone] 01/22/2025 6:45 EDT Treatment [facility] - [place] [address] [place] [address] Carlota Jin MD 1 [facility], [address] [phone] 01/24/2025 6:45 EDT Treatment [facility] D[facility] - [place] [address] [place], [place] [id number] Carlota Jin MD 1 [facility], [facility] [address] [place] [phone] 01/26/2025 6:45 EDT Treatment [facility] - [place] [address] [place], [place] [phone] Carlota Jin MD 1 [facility], [facility] [address] [place] [phone] 01/29/2025 6:45 EDT Treatment [facility] - [place] [address] [place], [place] [address] Carlota Jin MD 1 [facility], [facility] [address] [place] [phone] 01/31/2025 6:45 EDT Treatment [facility] - [place] [address] [place], [place] [address] Carlota Jin MD 1 [facility], [facility] [address] [place] [phone] 02/02/2025 6:45 EDT Treatment [facility] - [place] [address] [place], [place] [phone] Carlota Jin MD 1 [facility], [address] [phone] 02/05/2025 6:45 EDT Treatment [facility] Dial[facility] - [place] [address] [place], [place] [phone] Carlota Jin MD [address] [phone] 02/07/2025 6:45 EDT Treatment [facility] D[facility] - [place] [address] [place], [place] [phone] Carlota Jin MD [address] [phone] 02/09/2025 6:45 EDT Treatment [facility] - [place] [address] [place], [place] [phone] Carlota Jin MD 1 [facility] 2 [place] [phone] 02/12/2025 6:45 EDT Treatment [facility] - [place] [address] [place], [place] [address] Carlota Jin MD 1 [facility], [facility] 2 [place] [phone] 02/14/2025 6:45 EDT Treatment [facility] - [place] [address] [place], [place] [phone] Carlota Jin MD 1 [facility], [facility] [address] [place] [phone] 02/16/2025 6:45 EDT Treatment [facility] - [place] [address] [place], [place] [phone] Carlota Jin MD 1 [facility], [facility] [address] [place] [phone] 02/19/2025 6:45 EDT Treatment [facility] - [place] [address] [place] [address] Carlota Jin MD 1 [facility], [facility] [address] [place] [phone] 02/21/2025 6:45 EDT Treatment [facility] [place] [address] [place], [place] [id number] Carlota Jin MD 1 [facility], [facility] [address] [place] [phone] documented as of this encounter Procedures Procedure Name Priority Date/Time Associated Diagnosis Comments COMPLETE BLOOD COUNT Routine 06/09/2023 6:34 EDT ESRD (end stage renal disease) ([facility]) HEMODIALYSIS Routine 06/09/2023 6:27 EDT ESRD (end stage renal disease) ([facility]) documented in this encounter Results * (ABNORMAL) COMPLETE BLOOD COUNT (06/09/2023 6:34 EDT) WBC 7.89 4.00 - 10.40 K/cmm 06/09/2023 21:33 [facility] RBC 3.27(L) 4.36 - 5.78 M/cmm 06/09/2023 21:33 [facility] Hemoglobin 10.5(L) 13.8 - 17.3 g/dL 06/09/2023 21:33 [facility] HCT 31.4(L) 39.5 - 50.2 % 06/09/2023 21:33 [facility] MCV 96(H) 81 - 95 fL 06/09/2023 21:33 [facility] MCH 32.1 27.6 - 33.0 pg 06/09/2023 21:33 [facility] MCHC 33.4 32.8 - 36.4 g/dL 06/09/2023 21:33 [facility] RDW-CV 12.1 <14.2 % 06/09/2023 21:33 [facility] RDW-SD 42.6 <46.0 fl 06/09/2023 21:33 [facility] PLT 269 141 - 377 K/cmm 06/09/2023 21:33 [facility] MPV 11.5 9.5 - 12.7 fL 06/09/2023 21:33 [facility] Blood VENOUS BLOOD / Unknown Venipuncture / Unknown 06/09/2023 6:34 EDT 06/09/2023 6:34 EDT us Carlota Jin MD HEMATOLOGY & PF4 ORDERABL ES Final Result [facility] [address] [place] [address] documented in this encounter Visit Diagnoses Diagnosis ESRD (end stage renal disease) ([facility] Primary End stage renal disease Anemia of chronic renal failure, unspecified CKD stage Hypoalbuminemia Other disorders of plasma protein metabolism Secondary hyperparathyroidism ([facility]) Secondary hyperparathyroidism (of renal origin) documented in this encounter Administered Medications Inactive Administered Medications - up to 3 most recent administrations Medication Order MAR Action Action Date Dose Rate Site acetaminophen (TYLENOL) tablet 650 mg 650 mg, oral, EVERY 4 HOURS PRN, Starting on Wed06/09/23 at 0700, Until Wed06/09/23 at 1342, Pain, Routine, DialysisIndications:ESRD (end stage renal disease) ([facility]) Given 06/09/2023 7:01 EDT 650 mg calcium carbonate (TUMS) tablet 500 mg (200 mg elemental calcium) 2 Tablet 2 Tablet, oral, ONCE IN DIALYSIS, 1 dose, On Wed06/09/23 at 0645, Routine, DialysisIndications:ESRD (end stage renal disease) ([facility]),Secondary hyperparathyroidism ([facility]) Given 06/09/2023 7:01 EDT 2 Tablets epoetin ken (EPOGEN) 20,000 unit/2 mL injection 500 Units 500 Units, intravenous, ONCE IN DIALYSIS, 1 dose, On Wed06/09/23 at 0645, Routine, DialysisIndications:ESRD (end stage renal disease) ([facility]),Anemia of chronic renal failure, unspecified CKD stage Given 06/09/2023 7:01 EDT 500 Units heparin injection 9,000 Units 9,000 Units, intravenous, ONCE IN DIALYSIS, 1 dose, On Wed06/09/23 at 0645, Routine, Dialysis, Now x1 bolus 4500 units to be given at the beginning of dialysis 1500 units/hour to be given over the course of dialysis (9000 units total). Stop 1 hour prior to end of treatment. To be administered per Policy [id number].Indications:ESRD (end stage renal disease) ([facility]) Given 06/09/2023 6:45 EDT 9,000 Units LiquaCel liquid protein liquid 30 mL 30 mL, oral, ONCE IN DIALYSIS, 1 dose, On Wed06/09/23 at 0645, RoutineIndications:Hypoalbuminemi a,ESRD (end stage renal disease) ([facility]) Given 06/09/2023 7:01 EDT 30 mL documented in this encounter Orders Dialysis Count Last Ordered Date First Orde red Date HEMODIALYSIS 1 06/09/2023 documented in this encounter Care Teams Credit Support Specialist Relationship Specialty Start Date End Date Adeola Villegas APRN [address] [place] [address] PCP - General 10/12/16 07/06/23 documented as of this encounter
--- OUTSIDE RECORDS SUMMARY | 2024-12-05 12:22 | XMS_ITS | Encounter Summary ---
Author Organization [facility] Address [address] [place] [address] Care Team Providers Care Packaging Engineer Name Role Phone Adeola Villegas MONA Primary Care Provider [phone] Encounter Details Date Type Department Care Team (Latest Contact Info) Description 06/11/2023 6:45 EDT Treatment [facility] [address] [place] [address] Carlota Jin MD 1 [facility], Level [address] [place] [address] ESRD (end stage renal disease) ([facility]) (Primary Dx); Anemia of chronic renal failure, unspecified CKD stage; Hypoalbuminemia; Secondary hyperparathyroidism ([facility]) Social History [...] - Temperature - - Respiratory Rate 18 06/11/2023 1044 EDT Oxygen Saturation - - Inhaled Oxygen Concentration - - Weight 88.4 kg (194 lb 14.2 oz) 06/11/2023 0629 EDT Height - - Body Mass Index 28.37 01/25/2023 0751 EDT documented in this encounter Miscellaneous Notes * Flowsheet Note - Marcela Cox RN - 06/11/2023 1325 EDT 06/11/23 1044 Post-Hemodialysis Assessment Total Blood Processed (L) 91.09 Liters On Line Clearance: spKt/V 1.44 spKt/V Dialyzer Clearance Lightly streaked Treatment UFR (ml:kg:hr) 4.88 ml:kg:hr Final Critline Profile (%/hr) -1.87 Final Profile Profile A Critline refill Negative (H1: 33.0 H2:33.0) Fluid Removed (L) 1.9 L Post-Dialysis Scale Weight 86.7 kg (191 lb 2.2 oz) Wheelchair Weight 0 kg (0 lb) Prosthesis Weight 0 kg (0 lb) Post-Treatment Weight (kg) 86.7 Treatment Weight Change (kg) 1.7 kg Day Target Weight (kg) 87 Post Sitting/Lying BP 164/86 Post Sitting/Lying pulse 63 Post Standing BP 138/76 Post Standing Pulse 67 Temp 35.9 ??C (96.6 ??F) Temp src Temporal Resp 18 Post access assessment Bruit present: Yes Thrill Present AVF/AFG Hemostasis achieved Yes Note Patient held for 10mins with blue clamps Orientation Alert and Oriented x3 Yes Time Yes Place Yes Person Yes Cooperative Yes Disoriented No Discharge Ambulation Methods Ambulatory without assistance Wrap up items Patient Response to Treatment Tolerated tx well. Removed 1.9L UF goal without difficulty. Comments No issues during tx, no concerns voiced post tx. documented in this encounter Plan of Treatment Upcoming Encounters Date Type Department Care Team (Late st Contact Info) Description 12/06/2024 6:45 EST Treatment [facility] [place] [address] [place] [address] Carlota Jin MD 1 [facility], [address] [place] [address] 12/08/2024 6:45 EST Treatment [facility] [place] [address] [place], [place] [phone] Carlota Jin MD 1 [facility], [facility] [address] [place] [phone] 12/11/2024 6:45 EST Treatment [facility] [place] [address] [place], [place] [phone] Carlota Jin MD 1 [facility], [facility] [address] [place] [phone] 12/13/2024 6:45 EST Treatment [facility] [place] [address] [place], [place] [phone] Carlota Jin MD 1 [facility], [facility] [address] [place] [phone] 12/15/2024 6:45 EST Treatment [facility] [place] [address] [place], [place] [phone] Carlota Jin MD 1 [facility], [facility] [address] [place] [phone] 12/18/2024 6:45 EST Treatment [facility] [place] [address] [place], [place] [phone] Carlota Jin MD 1 [facility], [facility] [address] [place] [phone] 12/20/2024 6:45 EST Treatment [facility] [place] [address] [place], [place] [phone] Carlota Jin MD 1 [facility], [facility] [address] [place] [phone] 12/22/2024 6:45 EST Treatment [facility] [place] [address] [place], [place] [phone] Carlota Jin MD 1 [facility], [facility] [address] [place] [phone] 12/25/2024 6:45 EST Treatment [facility] [place] [address] [place], [place] [phone] Carlota Jin MD 1 [facility], [facility] [address] [place] [phone] 12/27/2024 6:45 EST Treatment [facility] [place] [address] [place], [place] [phone] Carlota Jin MD 1 [facility], [facility] [address] [place] [phone] 12/29/2024 6:45 EST Treatment [facility] [place] [address] [place], [place] [phone] Carlota Jin MD 1 [facility], [facility] 2 [place] [phone] 01/01/2025 6:45 EDT Treatment [facility] [place] [address] [place], [place] [phone] Carlota Jin MD 1 [facility], [facility] [address] [place] [phone] 01/03/2025 6:45 EDT Treatment [facility] [place] [address] [place], [place] [phone] Carlota Jin MD 1 [facility], [facility] 2 [place] [phone] 01/05/2025 6:45 EDT Treatment [facility] [place] [address] [place], [place] [phone] Carlota Jin MD [address] [place] [address], [address] [phone] 01/08/2025 6:45 EDT Treatment [facility] [place] [address] [place], [place] [phone] Carlota Jin MD [address] [place] [address], [address] [phone] 01/10/2025 6:45 EDT Treatment [facility] [place] [address] [place], [place] [phone] Carlota Jin MD [address] [place] [address], [facility] [address] [place] [phone] 01/12/2025 6:45 EDT Treatment [facility] [place] [address] [place], [place] [phone] Carlota Jin MD 1 [facility], [facility] 2 [place] [phone] 01/15/2025 6:45 EDT Treatment [facility] [place] [address] [place], [place] [phone] Carlota Jin MD 1 [facility], [facility] 2 [place] [phone] 01/17/2025 6:45 EDT Treatment [facility] [place] [address] [place], [place] [phone] Carlota Jin MD 1 [facility], [facility] 2 [place] [phone] 01/19/2025 6:45 EDT Treatment [facility] [place] [address] [place], [place] [phone] Carlota Jin MD 1 [facility], [facility] 2 [place] [phone] 01/22/2025 6:45 EDT Treatment [facility] [place] [address] [place] [address] Carlota Jin MD 1 [facility], [facility] 2 [place] [phone] 01/24/2025 6:45 EDT Treatment [facility] [place] [address] [place], [place] [phone] Carlota Jin MD 1 [facility], [facility] 2 [place] [phone] 01/26/2025 6:45 EDT Treatment [facility] [place] [address] [place], [place] [phone] Carlota Jin MD 1 [facility], [facility] 2 [place] [phone] 01/29/2025 6:45 EDT Treatment [facility] [place] [address] [place], [place] [phone] Carlota Jin MD 1 [facility], [facility] 2 [place] [phone] 01/31/2025 6:45 EDT Treatment [facility] [place] [address] [place], [place] [phone] Carlota Jin MD 1 [facility], [facility] 2 [place] [phone] 02/02/2025 6:45 EDT Treatment [facility] [place] [address] [place], [place] [phone] Carlota Jin MD 1 [facility], [facility] 2 [place] [phone] 02/05/2025 6:45 EDT Treatment [facility] [place] [address] [place], [place] [address] Carlota Jin MD 1 [facility], [facility] 2 [place] [phone] 02/07/2025 6:45 EDT Treatment [facility] [place] [address] [place], [place] [phone] Carlota Jin MD 1 [facility], [facility] 2 [place] [phone] 02/09/2025 6:45 EDT Treatment [facility] [place] [address] [place], [place] [phone] Carlota Jin MD 1 [facility], [facility] 2 [place] [phone] 02/12/2025 6:45 EDT Treatment [facility] [place] [address] [place] [address] Carlota Jin MD 1 [facility], [facility] 2 [place] [phone] 02/14/2025 6:45 EDT Treatment [facility] [place] [address] [place], [place] [phone] Carlota Jin MD 1 [facility], [facility] [address] [place] [phone] 02/16/2025 6:45 EDT Treatment [facility] [place] [address] [place], [place] [phone] Carlota Jin MD 1 [facility], [facility] [address] [place] [phone] 02/19/2025 6:45 EDT Treatment [facility] [place] [address] [place], [place] [phone] Carlota Jin MD 1 [facility], [facility] 2 [place] [phone] 02/21/2025 6:45 EDT Treatment [facility] [place] [address] [place], [place] [phone] Carlota Jin MD 1 [facility], [facility] 2 [place] [phone] documented as of this encounter Procedures Procedure Name Priority Date/Time Associated Diagnosis Comments HEMODIALYSIS Routine 06/11/2023 6:25 EDT ESRD (end stage renal disease) ([facility]) documented in this encounter Visit Diagnoses Diagnosis ESRD (end stage renal disease) ([facility])- Primary End stage renal disease Anemia of chronic renal failure, unspecified CKD stage Hypoalbuminemia Other disorders of plasma protein metabolism Secondary hyperparathyroidism ([facility]) Secondary hyperparathyroidism (of renal origin) documented in this encounter Administered Medications Inactive Administered Medications - up to 3 most recent administrations Medication Order MAR Action Action Date Dose Rate Site calcium carbonate (TUMS) tablet 500 mg (200 mg elemental calcium) 2 Tablet 2 Tablet, oral, ONCE IN DIALYSIS, 1 dose, On Wed06/11/23 at 0645, Routine, DialysisIndications:ESRD (end stage renal disease) ([facility]),Secondary hyperparathyroidism ([facility]) Given 06/11/2023 6:49 EDT 2 Tablets epoetin ken (EPOGEN) 20,000 unit/2 mL injection 500 Units 500 Units, intravenous, ONCE IN DIALYSIS, 1 dose, On Wed06/11/23 at 0645, Routine, DialysisIndications:ESRD (end stage renal disease) ([facility]),Anemia of chronic renal failure, unspecified CKD stage Given 06/11/2023 6:49 EDT 500 Units heparin injection 9,000 Units 9,000 Units, intravenous, ONCE IN DIALYSIS, 1 dose, On Wed06/11/23 at 0645, Routine, Dialysis, Now x1 bolus 4500 units to be given at the beginning of dialysis 1500 units/hour to be given over the course of dialysis (9000 units total). Stop 1 hour prior to end of treatment. To be administered per Policy [id number].Indications:ESRD (end stage renal disease) ([facility]) Given 06/11/2023 6:43 EDT 9,000 Units LiquaCel liquid protein liquid 30 mL 30 mL, oral, ONCE IN DIALYSIS, 1 dose, On Wed06/11/23 at 0645, RoutineIndications:Hypoalbuminemi a,ESRD (end stage renal disease) ([facility]) Given 06/11/2023 6:49 EDT 30 mL documented in this encounter Orders Dialysis Count Last Ordered Date First Orde red Date HEMODIALYSIS 1 06/11/2023 documented in this encounter Care Teams Packaging Engineer Relationship Specialty Start Date End Date Adeola Villegas APRN [address] [place] [address] PCP - General 10/12/16 07/06/23 documented as of this encounter
--- OUTSIDE RECORDS SUMMARY | 2024-12-05 12:22 | XMS_ITS | Encounter Summary ---
Author Organization [facility] Address [address] [place] [address] Care Team Providers Care Animal Keeper Name Role Phone Adeola Villegas MONA Primary Care Provider [phone] Encounter Details Date Type Department Care Team (Latest Contact Info) Description 05/31/2023 6:45 EDT Treatment [facility] [address] [place] [address] Carlota Jin MD 1 [facility], Level [address] [place] [address] ESRD (end stage renal disease) ([facility]) (Primary Dx); Anemia of chronic renal failure, unspecified CKD stage; Hypoalbuminemia; Secondary hyperparathyroidism ([facility]) Social History Tobacco Use Types [...] Flowsheet Note - Teto Ribeiro RN - 05/31/2023 1500 EDT 05/31/23 1052 Post-Hemodialysis Assessment Total Blood Processed (L) 89.15 Liters On Line Clearance: spKt/V 1.46 spKt/V Dialyzer Clearance Lightly streaked Treatment UFR (ml:kg:hr) 5.39 ml:kg:hr Fluid Removed (L) 3 L Post-Dialysis Scale Weight 87.8 kg (193 lb 9 oz) Wheelchair Weight 0 kg (0 lb) Prosthesis Weight 0 kg (0 lb) Post-Treatment Weight (kg) 87.8 Treatment Weight Change (kg) 1.9 kg Day Target Weight (kg) 87.2 Post Sitting/Lying BP 149/89 Post Sitting/Lying pulse 74 Post Standing BP 133/73 Post Standing Pulse 68 Temp 36.3 ??C (97.3 ??F) Temp src Temporal Post access assessment AVF/AFG Hemostasis achieved Yes Orientation Alert and Oriented x3 Yes Time Yes Place Yes Person Yes Cooperative Yes Disoriented No Discharge Ambulation Methods Ambulatory without assistance Wrap up items Patient Response to Treatment sheldon. tx well, removed 3.0L Comments no s/s of distress noted, VSS upon d/c * Dialysis Rounding - Carlota Jin MD - 05/31/2023 0645 EDT Dialysis Provider's Routine Assessment Gerson Bruner was seen and examined as appropriate during Dialysis. Pertinent lab results were reviewed. Changes since last visit: None Changes to current prescriptions/orders: None No changes. UOP is decreasing. Continues to smoke. No new issues. No changes. Exam: Gen: NAD, awake, alert Resp: CTAB, unlabored breathing CV: RRR Abd: soft Ext: WWP, no edema Neuro: AAOx3, moves all ext spont Skin: exposed skin is warm and dry with no obvious lesion or rash Carlota Jin MD documented in this encounter Plan of Treatment Upcoming Encounters Date Type Department Care Team (Late st Contact Info) Description 12/06/2024 6:45 EST Treatment [facility] Dialysi - [place] [address] [place] [address] Carlota Jin MD 1 [facility] [address] [place] [phone] 12/08/2024 6:45 EST Treatment [facility] - [place] [address] [place], [place] [id number] Carlota Jin MD 1 [facility], [facility] [address] [place] [phone] 12/11/2024 6:45 EST Treatment [facility] - [place] [address] [place], [place] [id number] Carlota Jin MD 1 [facility], [facility] [address] [place] [phone] 12/13/2024 6:45 EST Treatment [facility] - [place] [address] [place], [place] [id number] Carlota Jin MD 1 [facility], [facility] [address] [place] [phone] 12/15/2024 6:45 EST Treatment [facility] [address] [place], [place] [id number] Carlota Jin MD 1 [facility], [facility] [address] [place] [phone] 12/18/2024 6:45 EST Treatment [facility] [address] [place], [place] [phone] Carlota Jin MD [address] [facility], [facility] [address] [place] [phone] 12/20/2024 6:45 EST Treatment [facility] - [place] [address] [place], [place] [phone] Carlota Jin MD [address] [facility], [facility] [address] [place] [phone] 12/22/2024 6:45 EST Treatment [facility] - [place] [address] [place], [place] [id number] Carlota Jin MD 1 [facility], [facility] [address] [place] [phone] 12/25/2024 6:45 EST Treatment [facility] - [place] [address] [place], [place] [phone] Carlota Jin MD 1 [facility], [facility] [address] [place] [phone] 12/27/2024 6:45 EST Treatment [facility] - [place] [address] [place], [place] [phone] Carlota Jin MD [address] [facility], [facility] [address] [place] [phone] 12/29/2024 6:45 EST Treatment [facility] - [place] [address] [place], [place] [phone] Carlota Jin MD [address] [facility], [facility] [address] [place] [phone] 01/01/2025 6:45 EDT Treatment [facility] - [place] [address] [place], [place] [phone] Carlota Jin MD 1 [facility], [address] [place] [phone] 01/03/2025 6:45 EDT Treatment [facility] - [place] [address] [place], [place] [address] Carlota Jin MD 1 [facility], [facility] [address] [place] [phone] 01/05/2025 6:45 EDT Treatment [facility] - [place] [address] [place], [place] [phone] Carlota Jin MD [address] [facility], [facility] [address] [place] [phone] 01/08/2025 6:45 EDT Treatment [facility] - [place] [address] [place], [place] [address] Carlota Jin MD 1 [facility], [facility] [address] [place] [phone] 01/10/2025 6:45 EDT Treatment [facility] - [place] [address] [place] [address] Carlota Jin MD 1 [facility], [facility] [address] [place] [phone] 01/12/2025 6:45 EDT Treatment [facility] - [place] [address] [place], [place] [address] Carlota Jin MD 1 [facility], [facility] [address] [place] [phone] 01/15/2025 6:45 EDT Treatment [facility] - [place] [address] [place], [place] [phone] Carlota Jin MD 1 [facility], [facility] [address] [place] [phone] 01/17/2025 6:45 EDT Treatment [facility] - [place] [address] [place], [place] [phone] Carlota Jin MD 1 [facility], [facility] [address] [place] [phone] 01/19/2025 6:45 EDT Treatment [facility] - [place] [address] [place], [place] [phone] Carlota Jin MD [address] [place] [address], [facility] [address] [place] [phone] 01/22/2025 6:45 EDT Treatment [facility] - [place] [address] [place], [place] [phone] Carlota Jin MD [address] [place] [address], [facility] [address] [place] [phone] 01/24/2025 6:45 EDT Treatment [facility] - [place] [address] [place], [place] [phone] Carlota Jin MD 1 [facility], [facility] [address] [place] [phone] 01/26/2025 6:45 EDT Treatment [facility] - [place] [address] [place], [place] [phone] Carlota Jin MD 1 [facility], [facility] [address] [place] [phone] 01/29/2025 6:45 EDT Treatment [facility] - [place] [address] [place], [place] [address] Carlota Jin MD 1 [facility], [facility] [address] [place] [phone] 01/31/2025 6:45 EDT Treatment [facility] - [place] [address] [place], [place] [phone] Carlota Jin MD 1 [facility], [facility] [address] [place] [phone] 02/02/2025 6:45 EDT Treatment [facility] - [place] [address] [place], [place] [phone] Carlota Jin MD 1 [facility], [facility] [address] [place] [phone] 02/05/2025 6:45 EDT Treatment [facility] [address] [place], [place] [phone] Carlota Jin MD 1 [facility], [facility] [address] [place] [phone] 02/07/2025 6:45 EDT Treatment [facility] - [place] [address] [place], [place] [phone] Carlota Jin MD 1 [facility], [facility] [address] [place] [phone] 02/09/2025 6:45 EDT Treatment [facility] - [place] [address] [place], [place] [phone] Carlota Jin MD 1 [facility], [facility] [address] [place] [phone] 02/12/2025 6:45 EDT Treatment [facility] - [place] [address] [place], [place] [phone] Carlota Jin MD 1 [facility], [facility] [address] [place] [phone] 02/14/2025 6:45 EDT Treatment [facility] - [place] [address] [place], [place] [phone] Carlota Jin MD 1 [facility], [facility] [address] [place] [phone] 02/16/2025 6:45 EDT Treatment [facility] - [place] [address] [place], [place] [address] Carlota Jin MD 1 [facility], [facility] [address] [place] [phone] 02/19/2025 6:45 EDT Treatment [facility] - [place] [address] [place], [place] [phone] Carlota Jin MD 1 [facility], [facility] [address] [place] [phone] 02/21/2025 6:45 EDT Treatment [facility] [place] [address] Carlota Jin MD 1 [facility], [address] [place] [phone] documented as of this encounter Procedures Procedure Name Priority Date/Time Associated Diagnosis Comments POSTDIALYSIS BUN WITH URR CALCULATION Routine 05/31/2023 10:56 EDT ESRD (end stage renal disease) ([facility]) TRANSFERRIN SATURATION Routine 05/31/2023 6:40 EDT ESRD (end stage renal disease) ([facility]) DIALYSIS ROUTINE - DIALYSIS ONLY (BUN, K, NA, CL, CO2, SANJEEV, ALB, MG, PHOS, ALKP, AST) Routine 05/31/2023 6:40 EDT ESRD (end stage renal disease) ([facility]) PROFILE IRON STUDIES (INCLUDES IRON, IBC, AND FERRITIN) Routine 05/31/2023 6:40 EDT ESRD (end stage renal disease) ([facility]) FERRITIN Routine 05/31/2023 6:40 EDT ESRD (end stage renal disease) ([facility]) HEMODIALYSIS Routine 05/31/2023 6:31 EDT ESRD (end stage renal disease) ([facility]) documented in this encounter Results * (ABNORMAL) POSTDIALYSIS BUN WITH URR CALCULATION (05/31/2023 10:56 EDT) BUN, Postdialysis 21 10 - 26 mg/dL 05/31/2023 21:31 EDT [facility] Urea Reduction Rate 71.2 Not Established % 05/31/2023 21:31 T [facility] Comment: NOTE: Reference range not established for Urea Reduction Rate. BUN 73(H) 10 - 26 mg/dL 05/31/2023 21:31 EDT [facility] Blood VENOUS BLOOD / Unknown Venipuncture / Unknown 05/31/2023 10:56 EDT 05/31/2023 10:56 EDT us Carlota Jin MD CHEMISTRY & BLOOD GAS ORD ERABLES Final Result Performing Organization Address City/[facility]/ZIP Co de Phone Number [facility] [address] [place] [address] * (ABNORMAL) FERRITIN (05/31/2023 6:40 EDT) Ferritin 656(H) 22 - 322 ng/mL 05/31/2023 22:40 EDT [facility] Blood VENOUS BLOOD / Unknown Venipuncture / Unknown 05/31/2023 6:40 EDT 05/31/2023 6:40 EDT us Carlota Jin MD CHEMISTRY & BLOOD GAS ORD ERABLES Final Result Performing Organization Address [facility]/[place] Co de Phone Number [facility] [address] [place] [address] * TRANSFERRIN SATURATION (05/31/2023 6:40 EDT) Iron 58 49 - 181 ??g/dL 05/31/2023 21:39 EDT [facility] Iron Binding Capacity 261 240 - 450 ??g/dL 05/31/2023 21:39 EDT [facility] Transferrin Saturation 22 15 - 45 % 05/31/2023 21:39 EDT [facility] Blood VENOUS BLOOD / Unknown Venipuncture / Unknown 05/31/2023 6:40 EDT 05/31/2023 6:40 EDT us Carlota Jin MD CHEMISTRY & BLOOD GAS ORD ERABLES Final Result Performing Organization Address [facility]/[place] Co de Phone Number [facility] [address] [place] [address] * (ABNORMAL) DIALYSIS ROUTINE - DIALYSIS ONLY (BUN, K, NA, CL, CO2, SANJEEV, ALB, MG, PHOS, ALKP, AST) (05/31/2023 6:40 EDT) Sodium 138 136 - 145 mmol/L 05/31/2023 21:31 [facility] Potassium 5.3(H) 3.5 - 5.0 mmol/L 05/31/2023 21:31 [facility] Chloride 103 96 - 110 mmol/L 05/31/2023 21:31 [facility] CO2 Total 22 22 - 32 mmol/L 05/31/2023 21:31 [facility] Calcium 8.7 8.5 - 10.5 mg/dL 05/31/2023 21:31 [facility] Albumin 3.4 3.4 - 4.9 g/dL 05/31/2023 21:31 [facility] Phosphorus 8.2(H) 2.5 - 4.5 mg/dL 05/31/2023 21:31 [facility] Calcium Phos Product 71.3 See Note mg/dL 05/31/2023 21:31 [facility] Comment: NOTE: Reference range not established BUN, Predialysis 73(H) 10 - 26 mg/dL 05/31/2023 21:31 [facility] AST 19 15 - 46 U/L 05/31/2023 21:31 [facility] Alkaline Phosphatase 83 38 - 126 U/L 05/31/2023 21:31 [facility] Magnesium 2.5 1.7 - 2.8 mg/dL 05/31/2023 21:31 [facility] Anion Gap 13 5 - 14 mmol/L 05/31/2023 21:31 [facility] Calculated Calcium 9.2 8.9 - 10.5 mg/dL 05/31/2023 21:31 [facility] Blood VENOUS BLOOD / Unknown Venipuncture / Unknown 05/31/2023 6:40 EDT 05/31/2023 6:40 EDT us Carlota Jin MD CHEMISTRY & BLOOD GAS ORD ERABLES Final Result [facility] [address] [place] [address] documented in this encounter Visit Diagnoses Diagnosis ESRD (end stage renal disease) ([facility])- Primary End stage renal disease Anemia of chronic renal failure, unspecified CKD stage Hypoalbuminemia Other disorders of plasma protein metabolism Secondary hyperparathyroidism ([facility]) Secondary hyperparathyroidism (of renal origin) documented in this encounter Administered Medications Inactive Administered Medications - up to 3 most recent administrations Medication Order MAR Action Action Date Dose Rate Site calcium carbonate (TUMS) tablet 500 mg (200 mg elemental calcium) 2 Tablet 2 Tablet, oral, ONCE IN DIALYSIS, 1 dose, On Wed05/31/23 at 0700, Routine, DialysisIndications:ESRD (end stage renal disease) ([facility]),Secondary hyperparathyroidism ([facility]) Given 05/31/2023 8:03 EDT 2 Tablets epoetin ken (EPOGEN) 20,000 unit/2 mL injection 500 Units 500 Units, intravenous, ONCE IN DIALYSIS, 1 dose, On Wed05/31/23 at 0700, Routine, DialysisIndications:ESRD (end stage renal disease) ([facility]),Anemia of chronic renal failure, unspecified CKD stage Given 05/31/2023 8:03 EDT 500 Units heparin injection 9,000 Units 9,000 Units, intravenous, ONCE IN DIALYSIS, 1 dose, On Wed05/31/23 at 0700, Routine, Dialysis, Now x1 bolus 4500 units to be given at the beginning of dialysis 1500 units/hour to be given over the course of dialysis (9000 units total). Stop 1 hour prior to end of treatment. To be administered per Policy [id number].Indications:ESRD (end stage renal disease) ([facility]) Given 05/31/2023 6:51 EDT 9,000 Units LiquaCel liquid protein liquid 30 mL 30 mL, oral, ONCE IN DIALYSIS, 1 dose, On Wed05/31/23 at 0700, RoutineIndications:Hypoalbuminemi a,ESRD (end stage renal disease) ([facility]) Given 05/31/2023 8:03 EDT 30 mL documented in this encounter Orders Dialysis Count Last Ordered Date First Orde red Date HEMODIALYSIS 1 05/31/2023 documented in this encounter Care Teams Animal Keeper Relationship Specialty Start Date End Date Adeola Villegas APRN [address] [place] [address] PCP - General 10/12/16 07/06/23 documented as of this encounter
--- OUTSIDE RECORDS SUMMARY | 2024-12-05 12:22 | XMS_ITS | Encounter Summary ---
Author Organization [facility] Address [address] [place] [address] Care Team Providers Care Clinical Sciences Professor Name Role Phone Adeola Villegas MONA Primary Care Provider [phone] Encounter Details Date Type Department Care Team (Latest Contact Info) Description 06/07/2023 6:45 EDT Treatment [facility] [address] [place] [address] Carlota Jin MD 1 [facility], Level 2 [place] [address] ESRD (end stage renal disease) ([facility]) (Primary Dx); Anemia of chronic renal failure, unspecified CKD stage; Hypoalbuminemia; Secondary hyperparathyroidism ([facility]); Encounter for immunization Social History Tobacco Use [...] - - Temperature - - Respiratory Rate 19 06/07/2023 1054 EDT Oxygen Saturation - - Inhaled Oxygen Concentration - - Weight 90.6 kg (199 lb 11.8 oz) 06/07/2023 0640 EDT Height - - Body Mass Index 29.07 01/25/2023 0751 EDT documented in this encounter Miscellaneous Notes * Flowsheet Note - Marcela Cox RN - 06/07/2023 1315 EDT 06/07/23 1054 Post-Hemodialysis Assessment Total Blood Processed (L) 90.75 Liters On Line Clearance: spKt/V 1.45 spKt/V Dialyzer Clearance Lightly streaked Treatment UFR (ml:kg:hr) 6.8 ml:kg:hr Final Critline Profile (%/hr) -2.96 Final Profile Profile A Critline refill Negative (H1: 35.1 H2:34.8) Fluid Removed (L) 3.1 L Post-Dialysis Scale Weight 87.2 kg (192 lb 3.9 oz) Wheelchair Weight 0 kg (0 lb) Prosthesis Weight 0 kg (0 lb) Post-Treatment Weight (kg) 87.2 Treatment Weight Change (kg) 2.4 kg Day Target Weight (kg) 87 Post Sitting/Lying BP (!) 192/96 Post Sitting/Lying pulse 63 Post Standing BP 154/78 Post Standing Pulse 69 Temp 35.6 ??C (96.1 ??F) Temp src Temporal Resp 19 Post access assessment Bruit present: Yes Thrill [...] Dialysis Comprehensive - Carlota Jin MD - 06/07/2023 0645 EDT Images from the original note were not included. TELEMEDICINE VIDEO VISIT Today's visit was provided through telemedicine video conferencing: I have reviewed the appropriateness of using video technology with the patient with regards to today's visit. The location of the patient : [facility] dialysis unit Patient location state: Visit Location State: [place] The location of the provider: Office Provider location state: Visit Location State: [place] The following people and their roles were present for today's visit: Appointment Provider: Carlota Jin MD RN Carlota Jin MD Dialysis Provider's Monthly Comprehensive Assessment Dialysis Unit: [facility] ESRD Etiology: Type 2 diabetes mellitus with diabetic chronic kidney disease ([facility]) Patient Active Problem List Diagnosis ??? 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 ESRD (end stage renal disease) ([facility]) ([facility]) ??? Essential (primary) hypertension ??? Hearing loss ??? Herniation of lumbar intervertebral disc with radiculopathy ??? Hyperlipidemia ??? Proteinuria ??? Right sided numbness ??? Secondary hyperparathyroidism ([facility]) ??? TIA (transient ischemic attack) ??? Type [...] with Nursing: Yes Average Interdialytic Fluid Gains: 06/02/2023 6:31 06/02/2023 10:51 06/04/2023 6:27 06/04/2023 6:30 06/04/2023 10:50 06/07/2023 6:40 06/07/2023 6:41 InterDialytic +/- Gain/Loss 0.4 0.7 0.7 3.9 2.9 Wt (pre) 88.2 87.4 87.4 90.6 89.6 Wt (post) 86.7 86.7 Treatment UFR (ml:kg:hr) 4.33 ml:kg:hr 2 ml:kg:hr BP (pre) 122/75 136/75 136/75 163/81 163/81 BP (post) 178/91 186/95 186/95 194/87 194/87 Pulse (pre) 71 76 76 73 73 Pulse(post) 68 74 74 72 72 Resp (/min) 16 18 Volume and blood pressure have been addressed with the following changes: None Consistently able to achieve estimated dry weight? Yes Blood pressure is in range for patient? Yes Any adverse intradialytic symptoms? Yes: rare cramping (improved) Plan: Managed per protocol Physical Exam (see note 05/31/23) Hospitalization Hospitalization in Previous 3 Months: No Emergency Room Visit in Previous 3 Months: No Access Management Current LDAs: Hemodialysis Arteriovenous Access 02/13/19 (Active) AV Fistula Present 06/07/23750 Site Assessment Clean;Dry;Intact;Bruit heard;Thrill felt 06/07/23750 Current State Active 06/07/23750 Status Accessed 06/07/23750 Is Maturing N 06/07/23750 Local Anesthetic None 06/07/23750 Site Prep Chlorhexidine 06/07/23750 Venous Needle Size 15 G 06/07/23750 Arterial/Generic Needle Size 15 G 06/07/23750 Accessed by: Sandra 06/07/23 075 Access Attempts 1 06/07/23750 Dressing Status/Care Clean/Dry/Intact 05/05/23 07 Patient has AVF/AVG as primary access: Yes [...] taking this.), Disp: 540 Tablet, Rfl: 3 Current Facility-Administered Medications: ??? iron sucrose (VENOFER) injection 200 mg, 200 mg, intravenous, ONCE IN DIALYSIS, Carlota Jin MD Adjustment made to home medication: No Dialysis Medication Review Dialysis Plan Order Summary All Current Orders Interval Duration Due Hemodialysis Therapy Plan Dialysis Treatment In-Center Hemodialysis 3 times a week Week of 06/06/2023 Routine, ONE TIME Starting when released Prescribed [...] - UF Profile: None Dialysis Last released: Wed06/07/2023 Oxygen Therapy (Age 3 yrs. to Adult) [...] released Until Discontinued, Pain, Dialysis Last released: Wed05/19/2023 diphenhydrAMINE (BENADRYL) capsule 25 mg PRN PRN [...] of treatment. To be administered per Policy [id number]. Last released: Wed06/07/2023 sodium chloride 0.9 % BOLUS 100 mL PRN PRN 100 mL, intravenous, PRN Starting when released Until Discontinued, Other, hypotension or cramping,Dialysis Last released: Never Dialysis Weekly Labs Complete Blood Count Weekly: Wed06/09/2023 Routine, ONE TIME Starting when released, Blood, Venous, Blood Results Release to Patient (Note: Choosing Manual Release will only block results from tests performed at [facility] and does not apply for Miscellaneous Test Order): Immediate via MyChart Portal Dialysis Last released: Wed06/02/2023 Dialysis Monthly Labs Dialysis Iron (Includes Iron, IBC, and Ferritin) - Nephrology Use Only On the Wed of every 1 month Wed06/28/2023 Routine, ONE TIME Starting when released, Blood, Venous, Blood Results Release to Patient (Note: Choosing Manual Release will only block results from tests performed at [facility] and does not apply for Miscellaneous Test Order): Immediate via [facility] Portal Dialysis Last released: Wed05/31/2023 Dialysis Routine- Dialysis Use Only On the Wed of every 1 month Wed06/28/2023 Routine, ONE TIME Starting when released, Blood, Blood, Venous Results Release to Patient (Note: Choosing Manual Release will only block results from tests performed at [facility] and does not apply for Miscellaneous Test Order): Immediate via [facility] Portal Dialysis Last released: Wed05/31/2023 Postdialysis BUN with URR Calculation On the Mon of every 1 month Wed06/28/2023 Routine, ONE TIME Starting when released, Blood, Blood, Venous Results Release to Patient (Note: Choosing Manual Release will only block results from tests performed at [facility] and does not apply for Miscellaneous Test Order): Immediate via [facility] Portal Dialysis Last released: Wed05/31/2023 Dialysis Quarterly Labs PTH Intact On the Wed of every 3 months Wed07/26/2023 Routine, ONE TIME Starting when released, Blood, Venous, Blood Results Release to Patient (Note: Choosing Manual Release will only block results from tests performed at [facility] and does not apply for Miscellaneous Test Order): Immediate via [facility] Portal Dialysis Last released: Wed04/26/2023 Dialysis Annual Labs - [facility] Hepatitis- Dialysis Use Only On the Wed of every 12 months Wed10/25/2023 Routine, ONE TIME Starting when released, Blood, Blood, Venous Results Release to Patient (Note: Choosing Manual Release will only block results from tests performed at [facility] and does not apply for Miscellaneous Test Order): Immediate via MyChart Portal Dialysis Last released: Never Folate On the 1st Mon of every 12 months Wed10/25/2023 Routine, ONE TIME Starting when released, Blood, Venous, Blood Results Release to Patient (Note: Choosing Manual Release will only block results from tests performed at [facility] and does not apply for Miscellaneous Test Order): Immediate via MyChart Portal Dialysis Last released: Never Vitamin B12 On the Mon of every 12 months Wed10/25/2023 Routine, ONE TIME Starting when released, Blood, Venous, Blood Results Release to Patient (Note: Choosing Manual Release will only block results from tests performed at [facility] and does not apply for Miscellaneous Test Order): Immediate via MyChart Portal Dialysis Last released: Never Vitamin D (25,OH) On the Mon of every 12 months Wed10/25/2023 Routine, ONE TIME Starting when released, Blood, Venous, Blood Results Release to Patient (Note: Choosing Manual Release will only block results from tests performed at [facility] and does not apply for Miscellaneous Test [...] results from tests performed at [facility] and does not apply for Miscellaneous Test Order): Immediate via MyChart Portal Dialysis Last released: Wed04/26/2023 HEMODIALYSIS [facility] Medications epoetin ken (EPOGEN) 20,000 unit/2 mL injection 500 Units 3 times a week Week of 06/06/2023 500 Units, intravenous, ONCE IN DIALYSIS Starting when released, Dialysis Last released: Wed06/07/2023 HEMODIALYSIS NUTRITIONAL SUPPLEMENTS Nutritional Supplements LiquaCel liquid protein liquid 30 mL Every visit Every visit 30 mL, oral, ONCE IN DIALYSIS Starting when released Last released: Wed06/07/2023 HEMODIALYSIS CKD [facility]BD [facility] Medications calcium carbonate (TUMS) tablet 500 mg (200 mg elemental calcium) 2 Tablet Every visit Every visit 2 Tablet, oral, ONCE IN DIALYSIS Starting when released, Dialysis Last released: 06/07/2023 Adjustment made to dialysis medication: No Laboratory Results Dialysis Adequacy: spKt/V: 1.43 (Calculated from:; BUN Pre-Dialysis: 73 mg/dL at 05/31/2023 10:56; BUN Post-Dialysis: 21mg/dL at 05/31/2023 10:56; Pre-Treatment Weight (kg): 89.7 at 05/31/2023 6:31; Post-Treatment Weight (kg): 87.8 at 05/31/2023 10:52; Duration of Treatment (minutes): 241 minutes at 05/31/2023 10:52) Plan: Continue current dialysis prescription Anemia Management: Lab Results Component Value Date WBC 7.29 06/02/2023 HGB 10.7 (L) 06/02/2023 HGB 10.5 (L) 05/26/2023 HGB 10.2 (L) 05/19/2023 PLT 256 06/02/2023 FOLATE 17.3 11/16/2022 [id number] 11/16/2022 FERRITIN 656 (H) 05/31/2023 Current [...] 05/31/2023 Prescribed Potassium Concentrate: HEMODIALYSIS Ordered at: 06/07/23 0641 Dialysate concentrate: Potassium 2 mEq/L Calcium 2.5 mEq/L 06/07/2023 6:41 Last Dialysis Prescription released on: Selected bath: Potassium 2 mEq/L Calcium 2.5 mEq/L sevelamer hydrochloride - 800 mg Plan: Managed per protocol Nutrition: Lab Results Component Value Date LABALBU 3.4 05/31/2023 NA 138 05/31/2023 Protein Supplements: This patient does not have an active medication from one of the medication groupers. Plan: Managed per protocol Comments: No acute issues Carlota Jin MD The [...] Contact Info) Description 12/06/2024 6:45 EST Treatment [facility] [address] [place], [place] [id number] Carlota Jin MD 1 [facility], [facility] [address] [place] [address] 12/08/2024 6:45 EST Treatment [facility] [address] [place], [place] [id number] Carlota Jin MD 1 [facility], [facility] [address] [place] [address] 12/11/2024 6:45 EST Treatment [facility] [place] [address] [place], [place] [id number] Carlota Jin MD 1 [facility], [facility] [address] [place] [phone] 12/13/2024 6:45 EST Treatment [facility] [address] [place], [place] [phone] Carlota Jin MD 1 [facility], [facility] [address] [place] [phone] 12/15/2024 6:45 EST Treatment [facility] [address] [place], [place] [phone] Carlota Jin MD 1 [facility], [facility] [address] [place] [phone] 12/18/2024 6:45 EST Treatment [facility] [address] [place], [place] [phone] Carlota Jin MD 1 [facility], [facility] 2 [place] [phone] 12/20/2024 6:45 EST Treatment [facility] [place] [address] [place], [place] [phone] Carlota Jin MD 1 [facility], [facility] 2 [place] [phone] 12/22/2024 6:45 EST Treatment [facility] [address] [place], [place] [phone] Carlota Jin MD 1 [facility], [facility] [address] [place] [phone] 12/25/2024 6:45 EST Treatment [facility] [address] [place], [place] [address] Carlota Jin MD 1 [facility], [facility] [address] [place] [phone] 12/27/2024 6:45 EST Treatment [facility] [place] [address] [place], [place] [phone] Carlota Jin MD 1 [facility], [facility] [address] [place] [phone] 12/29/2024 6:45 EST Treatment [facility] [address] [place], [place] [phone] Carlota Jin MD 1 [facility], [facility] [address] [place] [phone] 01/01/2025 6:45 EDT Treatment [facility] [place] [address] [place] [address] Carlota Jin MD 1 [facility], [facility] 2 [place] [phone] 01/03/2025 6:45 EDT Treatment [facility] [address] [place], [place] [phone] Carlota Jin MD 1 [facility], [facility] [address] [place] [phone] 01/05/2025 6:45 EDT Treatment [facility] [address] [place], [place] [phone] Carlota Jin MD 1 [facility], [facility] [address] [place] [phone] 01/08/2025 6:45 EDT Treatment [facility] [address] [place], [place] [phone] Carlota Jin MD [address] [place] [address], [address] [phone] 01/10/2025 6:45 EDT Treatment [facility] [place] [address] [place], [place] [phone] Carlota Jin MD [address] [place] [address], [address] [phone] 01/12/2025 6:45 EDT Treatment [facility] [address] [place], [place] [phone] Carlota Jin MD [address] [place] [address], [facility] [address] [place] [phone] 01/15/2025 6:45 EDT Treatment [facility] [place] [address] [place], [place] [phone] Carlota Jin MD [address] [place] [address], [facility] [address] [place] [phone] 01/17/2025 6:45 EDT Treatment [facility] [address] [place], [place] [phone] Carlota Jin MD 1 [facility], [facility] 2 [place] [phone] 01/19/2025 6:45 EDT Treatment [facility] [place] [address] [place], [place] [address] Carlota Jin MD 1 [facility], [facility] [address] [place] [phone] 01/22/2025 6:45 EDT Treatment [facility] [address] [place], [place] [phone] Carlota Jin MD 1 [facility], [facility] 2 [place] [phone] 01/24/2025 6:45 EDT Treatment [facility] [address] [place], [place] [phone] Carlota Jin MD 1 [facility], [facility] [address] [place] [phone] 01/26/2025 6:45 EDT Treatment [facility] [address] [place], [place] [phone] Carlota Jin MD 1 [facility], [facility] 2 [place] [phone] 01/29/2025 6:45 EDT Treatment [facility] [place] [address] [place], [place] [id number] Carlota Jin MD 1 [facility], [facility] [address] [place] [phone] 01/31/2025 6:45 EDT Treatment [facility] [address] [place], [place] [phone] Carlota Jin MD 1 [facility], [facility] 2 [place] [phone] 02/02/2025 6:45 EDT Treatment [facility] [address] [place], [place] [phone] Carlota Jin MD 1 [facility], [facility] [address] [place] [phone] 02/05/2025 6:45 EDT Treatment [facility] [address] [place], [place] [phone] Carlota Jin MD 1 [facility], [address] [phone] 02/07/2025 6:45 EDT Treatment [facility] [place] [address] [place] [address] Carlota Jin MD 1 [facility], [facility] [address] [place] [phone] 02/09/2025 6:45 EDT Treatment [facility] [place] [address] [place], [place] [phone] Carlota Jin MD 1 [facility], [facility] 2 [place] [phone] 02/12/2025 6:45 EDT Treatment [facility] [place] [address] [place], [place] [phone] Carlota Jin MD 1 [facility], [address] [phone] 02/14/2025 6:45 EDT Treatment [facility] [address] [place], [place] [phone] Carlota Jin MD 1 [facility], [address] [phone] 02/16/2025 6:45 EDT Treatment [facility] [address] [place], [place] [phone] Carlota Jin MD [address] [phone] 02/19/2025 6:45 EDT Treatment [facility] [address] [place], [place] [phone] Carlota Jin MD 1 [facility], [address] [phone] 02/21/2025 6:45 EDT Treatment [facility] [address] [place], [place] [phone] Carlota Jin MD [address] [phone] documented as of this encounter Procedures Procedure Name Priority Date/Time Associated Diagnosis Comments HEMODIALYSIS Routine 06/07/2023 6:41 EDT ESRD (end stage renal disease) ([facility]) documented in this encounter Visit Diagnoses Diagnosis ESRD (end stage renal disease) ([facility])- Primary End stage renal disease Anemia of chronic renal failure, unspecified CKD stage Hypoalbuminemia Other disorders of plasma protein metabolism Secondary hyperparathyroidism ([facility]) Secondary hyperparathyroidism (of renal origin) Encounter for [...] oral, ONCE IN DIALYSIS, 1 dose, On Wed06/07/23 at 0700, Routine, DialysisIndications:ESRD (end stage renal disease) ([facility]),Secondary hyperparathyroidism ([facility]) Given 06/07/2023 7:06 EDT 2 Tablets epoetin ken (EPOGEN) 20,000 unit/2 mL injection 500 Units 500 Units, intravenous, ONCE IN DIALYSIS, 1 dose, On Wed06/07/23 at 0700, Routine, DialysisIndications:ESRD (end stage renal disease) ([facility]),Anemia of chronic renal failure, unspecified CKD stage Given 06/07/2023 7:06 EDT 500 Units heparin injection 9,000 Units 9,000 Units, intravenous, ONCE IN DIALYSIS, 1 dose, On Wed06/07/23 at 0700, Routine, Dialysis, Now x1 bolus 4500 units to be given at the beginning of dialysis 1500 units/hour to be given over the course of dialysis (9000 units total). Stop 1 hour prior to end of treatment. To be administered per Policy [id number].Indications:ESRD (end stage renal disease) ([facility]) Given 06/07/2023 6:51 EDT 9,000 Units iron sucrose (VENOFER) injection 200 mg 200 mg, intravenous, ONCE IN DIALYSIS, 1 dose, On Wed06/07/23 at 0700, Routine, DialysisIndications:Hypoalbuminem ia,Encounter for immunization,ESRD (end stage renal disease) ([facility]) Given 06/07/2023 10:24 EDT 200 mg LiquaCel liquid protein liquid 30 mL 30 mL, oral, ONCE IN DIALYSIS, 1 dose, On Wed06/07/23 at 0700, RoutineIndications:Hypoalbuminemi a,ESRD (end stage renal disease) ([facility]) Given 06/07/2023 7:06 EDT 30 mL documented in this encounter Orders Dialysis Count Last Ordered Date First Orde red Date HEMODIALYSIS 1 06/07/2023 documented in this encounter Care Teams Clinical Sciences Professor Relationship Specialty Start Date End Date Adeola Villegas APRN [address] [place] [address] PCP - General 10/12/16 07/06/23 documented as of this encounter
--- OUTSIDE RECORDS SUMMARY | 2024-12-05 12:22 | XMS_ITS | Encounter Summary ---
Author Organization [facility] Address [address] [place] [address] Care Team Providers Care Bridge Builder Name Role Phone Adeola Villegas MONA Primary Care Provider [phone] Encounter Details Date Type Department Care Team (Late st Contact Info) Description 06/02/2023 Documentation Visit [facility] [address] [place] [address] Alexa Estrada, REPEAT PHOTOCOMPOSING MACHINE OPERATOR [address] [place] [address] Social History Tobacco Use Types Packs/Day Years [...] Progress Notes * Alexa Estrada LICSW - 06/02/2023 1021 EDT Errand Runner's Monthly Assessment UPDATE: SW met with pt while on dialysis, and let him know that the [facility] would honor his application that hecompleted while at dialysis at 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 Pt states he will bring it in on 06/04. SW will continue to remain available and apply for reimbursement as soon as he brings in this documentation. Current Living Situation: Lives with family and Lives with friends Lives with family Pt lives with his , Hoda, in their apartment in [place]. 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 Education: Highest level of education: high school [...] Treatment [facility] [place] [address] [place], [place] [id number] Carlota Jin MD 1 [facility], [facility] [address] [place] [phone] 12/08/2024 6:45 EST Treatment [facility] [place] [address] [place], [place] [id number] Carlota Jin MD [address] [place] [phone] 12/11/2024 6:45 EST Treatment [facility] [place] [address] [place], [place] [id number] Carlota Jin MD [address] [place] [address] [phone] 12/13/2024 6:45 EST Treatment [facility] [address] [place], [place] [id number] Carlota Jin MD [address] [place] [address], [facility] [address] [place] [phone] 12/15/2024 6:45 EST Treatment [facility] [place] [address] [place], [place] [id number] Carlota Jin MD [address] [phone] 12/18/2024 6:45 EST Treatment [facility] [place] [address] [place], [place] [id number] Carlota Jin MD 1 [facility], [facility] [address] [place] [phone] 12/20/2024 6:45 EST Treatment [facility] [place] [address] [place], [place] [id number] Carlota Jin MD 1 [facility], [facility] [address] [place] [phone] 12/22/2024 6:45 EST Treatment [facility] [place] [address] [place], [place] [id number] Carlota Jin MD 1 [facility], [facility] [address] [place] [phone] 12/25/2024 6:45 EST Treatment [facility] [place] [address] [place], [place] [id number] Carlota Jin MD 1 [facility], [facility] [address] [place] [phone] 12/27/2024 6:45 EST Treatment [facility] [place] [address] [place], [place] [id number] Carlota Jin MD 1 [facility], [facility] [address] [place] [phone] 12/29/2024 6:45 EST Treatment [facility] [place] [address] [place], [place] [id number] Carlota Jin MD 1 [facility], [facility] [address] [place] [phone] 01/01/2025 6:45 EDT Treatment [facility] [place] [address] [place], [place] [id number] Carlota Jin MD 1 [facility], [facility] [address] [place] [phone] 01/03/2025 6:45 EDT Treatment [facility] [place] [address] [place], [place] [id number] Carlota Jin MD 1 [facility], [facility] [address] [place] [phone] 01/05/2025 6:45 EDT Treatment [facility] [place] [address] [place] [address] Carlota Jin MD 1 [facility], [facility] [address] [place] [phone] 01/08/2025 6:45 EDT Treatment [facility] [place] [address] [place], [place] [id number] Carlota Jin MD 1 [facility], [facility] [address] [place] [phone] 01/10/2025 6:45 EDT Treatment [facility] [place] [address] [place], [place] [id number] Carlota Jin MD 1 [facility], [facility] [address] [place] [phone] 01/12/2025 6:45 EDT Treatment [facility] [place] [address] [place], [place] [id number] Carlota Jin MD 1 [facility], [facility] [address] [place] [phone] 01/15/2025 6:45 EDT Treatment [facility] [place] [address] [place], [place] [id number] Carlota Jin MD 1 [facility], [facility] [address] [place] [phone] 01/17/2025 6:45 EDT Treatment [facility] [place] [address] [place], [place] [id number] Carlota Jin MD 1 [facility], [address] [phone] 01/19/2025 6:45 EDT Treatment [facility] [place] [address] [place], [place] [id number] Carlota Jin MD 1 [facility], [facility] [address] [place] [phone] 01/22/2025 6:45 EDT Treatment [facility] [place] [address] [place], [place] [id number] Carlota Jin MD 1 [facility], [facility] [address] [place] [phone] 01/24/2025 6:45 EDT Treatment [facility] [place] [address] [place], [place] [address] Carlota Jin MD 1 [facility], [facility] [address] [place] [phone] 01/26/2025 6:45 EDT Treatment [facility] [place] [address] [place] [address] Carlota Jin MD 1 [facility], [facility] [address] [place] [phone] 01/29/2025 6:45 EDT Treatment [facility] [place] [address] [place], [place] [id number] Carlota Jin MD 1 [facility], [facility] [address] [place] [phone] 01/31/2025 6:45 EDT Treatment [facility] [place] [address] [place], [place] [id number] Carlota Jin MD 1 [facility], [facility] [address] [place] [phone] 02/02/2025 6:45 EDT Treatment [facility] [place] [address] [place], [place] [id number] Carlota Jin MD 1 [facility], [facility] [address] [place] [phone] 02/05/2025 6:45 EDT Treatment [facility] [place] [address] [place], [place] [id number] Carlota Jin MD 1 [facility], [facility] [address] [place] [phone] 02/07/2025 6:45 EDT Treatment [facility] [place] [address] [place], [place] [id number] Carlota Jin MD 1 [facility], [facility] [address] [place] [phone] 02/09/2025 6:45 EDT Treatment [facility] [place] [address] [place], [place] [id number] Carlota Jin MD [address] [place] [address], [facility] [address] [place] [phone] 02/12/2025 6:45 EDT Treatment [facility] [address] [place], [place] [id number] Carlota Jin MD [address] [place] [address], [address] [phone] 02/14/2025 6:45 EDT Treatment [facility] [address] [place], [place] [id number] Carlota Jin MD [address] [place] [address], [facility] [address] [place] [phone] 02/16/2025 6:45 EDT Treatment [facility] [address] [place], [place] [id number] Carlota Jin MD 1 [facility], [facility] [address] [place] [phone] 02/19/2025 6:45 EDT Treatment [facility] [place] [address] [place], [place] [address] Carlota Jin MD 1 [facility], [facility] [address] [place] [phone] 02/21/2025 6:45 EDT Treatment [facility] [address] [place], [place] [id number] Carlota Jin MD 1 [facility], [facility] [address] [place] [phone] documented as of this encounter Visit Diagnoses Not on filedocumented in this encounter Care Teams Bridge Builder Relationship Specialty Start Date End Date Adeola Villegas APRN [address] [place] [address] PCP - General 10/12/16 07/06/23 documented as of this encounter
--- OUTSIDE RECORDS SUMMARY | 2024-12-05 12:22 | XMS_ITS | Encounter Summary ---
Author Organization [facility] Address [address] [place] [address] Care Team Providers Care Testing Projects Administrator Name Role Phone Adeola Villegas APRN Primary Care Provider [phone] Encounter Details Date Type Department Care Team (Late st Contact Info) Description 05/28/2023 Documentation Visit [facility] [address] [place], [place] [id number] Melissa Crespo, RN Social History Tobacco Use [...] [facility] [address] [place] [address] Carlota Jin MD 1 [facility] [address] [place] [phone] 12/08/2024 6:45 EST Treatment [facility] [address] [place] [address] Carlota Jin MD 1 [facility], [facility] 2 [place] [phone] 12/11/2024 6:45 EST Treatment [facility] [place] [address] [place], [place] [address] Carlota Jin MD 1 [facility], [facility] [address] [place] [phone] 12/13/2024 6:45 EST Treatment [facility] [place] [address] [place], [place] [id number] Carlota Jin MD 1 [facility], [facility] [address] [place] [phone] 12/15/2024 6:45 EST Treatment [facility] [place] [address] [place], [place] [id number] Carlota Jin MD 1 [facility], [facility] [address] [place] [phone] 12/18/2024 6:45 EST Treatment [facility] [address] [place] [address] Carlota Jin MD 1 [facility], [facility] [address] [place] [phone] 12/20/2024 6:45 EST Treatment [facility] [place] [address] [place], [place] [id number] Carlota Jin MD 1 [facility], [facility] [address] [place] [phone] 12/22/2024 6:45 EST Treatment [facility] [place] [address] [place], [place] [id number] Carlota Jin MD 1 [facility], [facility] [address] [place] [phone] 12/25/2024 6:45 EST Treatment [facility] [place] [address] [place], [place] [id number] Carlota Jin MD 1 [facility], [facility] [address] [place] [phone] 12/27/2024 6:45 EST Treatment [facility] [place] [address] [place], [place] [id number] Carlota Jin MD 1 [facility], [facility] [address] [place] [phone] 12/29/2024 6:45 EST Treatment [facility] [place] [address] [place], [place] [id number] Carlota Jin MD 1 [facility], [facility] [address] [place] [phone] 01/01/2025 6:45 EDT Treatment [facility] [place] [address] [place], [place] [id number] Carlota Jin MD 1 [facility], [facility] [address] [place] [phone] 01/03/2025 6:45 EDT Treatment [facility] [place] [address] [place], [place] [id number] Carlota Jin MD 1 [facility] [address] [place] [phone] 01/05/2025 6:45 EDT Treatment [facility] [place] [address] [place], [place] [address] Carlota Jin MD 1 [facility], [facility] [address] [place] [phone] 01/08/2025 6:45 EDT Treatment [facility] [place] [address] [place], [place] [id number] Carlota Jin MD 1 [facility], [facility] [address] [place] [phone] 01/10/2025 6:45 EDT Treatment [facility] [place] [address] [place] [address] Carlota Jin MD 1 [facility], [facility] [address] [place] [phone] 01/12/2025 6:45 EDT Treatment [facility] [address] [place] [address] Carlota Jin MD 1 [facility], [facility] [address] [place] [phone] 01/15/2025 6:45 EDT Treatment [facility] [address] [place], [place] [id number] Carlota Jin MD 1 [facility], [facility] 2 [place] [phone] 01/17/2025 6:45 EDT Treatment [facility] [place] [address] [place], [place] [id number] Carlota Jin MD 1 [facility], [facility] [address] [place] [phone] 01/19/2025 6:45 EDT Treatment [facility] [place] [address] [place], [place] [id number] Carlota Jin MD 1 [facility], [facility] [address] [place] [phone] 01/22/2025 6:45 EDT Treatment [facility] [place] [address] [place], [place] [id number] Carlota Jin MD [address] [place] [address], [facility] [address] [place] [phone] 01/24/2025 6:45 EDT Treatment [facility] [place] [address] [place], [place] [id number] Carlota Jin MD 1 [facility], [facility] [address] [place] [phone] 01/26/2025 6:45 EDT Treatment [facility] [place] [address] [place], [place] [id number] Carlota Jin MD 1 [facility], [facility] 2 [place] [phone] 01/29/2025 6:45 EDT Treatment [facility] [place] [address] [place], [place] [id number] Carlota Jin MD 1 [facility], [facility] 2 [place] [phone] 01/31/2025 6:45 EDT Treatment [facility] [place] [address] [place], [place] [id number] Carlota Jin MD 1 [facility], [facility] 2 [place] [phone] 02/02/2025 6:45 EDT Treatment [facility] [place] [address] [place], [place] [id number] Carlota Jin MD 1 [facility], [address] [phone] 02/05/2025 6:45 EDT Treatment [facility] [place] [address] [place], [place] [id number] Carlota Jin MD 1 [facility], [address] [phone] 02/07/2025 6:45 EDT Treatment [facility] [place] [address] [place], [place] [id number] Carlota Jin MD 1 [facility], [facility] 2 [place] [phone] 02/09/2025 6:45 EDT Treatment [facility] [place] [address] [place], [place] [id number] Carlota Jin MD 1 [facility], [facility] 2 [place] [phone] 02/12/2025 6:45 EDT Treatment [facility] [place] [address] [place], [place] [id number] Carlota Jin MD [address] [phone] 02/14/2025 6:45 EDT Treatment [facility] [place] [address] [place], [place] [id number] Carlota Jin MD [address] [place] [phone] 02/16/2025 6:45 EDT Treatment [facility] [place] [address] [place], [place] [id number] Carlota Jin MD [address] [place] [address] [phone] 02/19/2025 6:45 EDT Treatment [facility] [place] [address] [place], [place] [id number] Carlota Jin MD [address] [place] [address] [phone] 02/21/2025 6:45 EDT Treatment [facility] [place] [address] [place], [place] [id number] Carlota Jin MD [address] [place] [address] [phone] documented as of this encounter Visit Diagnoses Not on filedocumented in this encounter Care Teams Testing Projects Administrator Relationship Specialty Start Date End Date Villegas, [place], [employer] SUPERVISOR [address] [place] [address] PCP - General 10/12/16 07/06/23 documented as of this encounter
--- OUTSIDE RECORDS SUMMARY | 2024-12-05 12:22 | XMS_ITS | Encounter Summary ---
Author Organization [facility] Address [address] [place] [address] Care Team Providers Care Manager Loss Prevention Name Role Phone Adeola Villegas MONA Primary Care Provider Encounter Details Date Type Department Care Team (Late st Contact Info) Description 05/31/[address] [facility] [address] [place], [place] [address] Marcela Cox, RN Social History Tobacco Use [...] Progress Notes * Marcela Cox, VIDYA - 05/31/2023 1507 EDT 05/31/23 15:07 [facility] Medication review of home medications (prescriptions, ijil-mve-qypxgrz, herbals, vitamin/mineral/dietary (nutritional) supplements, medical marijuana, and [...] Description 12/06/2024 6:[address] [facility] [address] [place], [place] [id number] Carlota Jin MD 1 [facility], [facility] [address] [place] [phone] 12/08/2024 6:[address] [facility] [address] [place], [place] [id number] Carlota Jin MD 1 [facility], [facility] [address] [place] [phone] 12/11/2024 6:[address] [facility] [address] [place], [place] [id number] Carlota Jin MD 1 [facility], Level 2 [place] [phone] 12/13/2024 6:45 EST Treatment [facility] [place] [address] [place], [place] [address] Carlota Jin MD 1 [facility] [address] [place] [phone] 12/15/2024 6:45 EST Treatment [facility] [place] [address] [place], [place] [id number] Carlota Jin MD 1 [facility] [address] [place] [phone] 12/18/2024 6:45 EST Treatment [facility] [place] [address] [place], [place] [id number] Carlota Jin MD 1 [facility] [address] [place] [phone] 12/20/2024 6:45 EST Treatment [facility] [place] [address] [place] [address] Carlota Jin MD 1 [facility] [address] [place] [phone] 12/22/2024 6:45 EST Treatment [facility] - [place] [address] [place], [place] [id number] Carlota Jin MD 1 [facility] [address] [place] [phone] 12/25/2024 6:45 EST Treatment [facility] [place] [address] [place], [place] [id number] Carlota Jin MD 1 [facility], [facility] [address] [place] [phone] 12/27/2024 6:45 EST Treatment [facility] [place] [address] [place], [place] [id number] Carlota Jin MD 1 [facility], [facility] [address] [place] [phone] 12/29/2024 6:45 EST Treatment [facility] [place] [address] [place], [place] [id number] Carlota Jin MD 1 [facility], [facility] 2 [place] [phone] 01/01/2025 6:45 EDT Treatment [facility] [place] [address] [place], [place] [id number] Carlota Jin MD 1 [facility], [facility] [address] [place] [phone] 01/03/2025 6:45 EDT Treatment [facility] [place] [address] [place], [place] [id number] Carlota Jin MD 1 [facility], [facility] 2 [place] [phone] 01/05/2025 6:45 EDT Treatment [facility] [place] [address] [place], [place] [id number] Carlota Jin MD 1 [facility] [address] [place] [phone] 01/08/2025 6:45 EDT Treatment [facility] [place] [address] [place], [place] [address] Carlota Jin MD 1 [facility] [address] [place] [phone] 01/10/2025 6:45 EDT Treatment [facility] [place] [address] [place], [place] [id number] Carlota Jin MD 1 [facility], [facility] 2 [place] [phone] 01/12/2025 6:45 EDT Treatment [facility] [place] [address] [place] [address] Carlota Jin MD 1 [facility], [facility] 2 [place] [phone] 01/15/2025 6:45 EDT Treatment [facility] [place] [address] [place], [place] [id number] Carlota Jin MD 1 [facility], [facility] 2 [place] [phone] 01/17/2025 6:45 EDT Treatment [facility] [place] [address] [place], [place] [id number] Carlota Jin MD 1 [facility], [facility] 2 [place] [phone] 01/19/2025 6:45 EDT Treatment [facility] [place] [address] [place], [place] [id number] Carlota Jin MD 1 [facility], [facility] 2 [place] [phone] 01/22/2025 6:45 EDT Treatment [facility] [place] [address] [place], [place] [id number] Carlota Jin MD 1 [facility], [facility] 2 [place] [phone] 01/24/2025 6:45 EDT Treatment [facility] [place] [address] [place] [address] Carlota Jin MD 1 [facility], [address] [phone] 01/26/2025 6:45 EDT Treatment [facility] - [place] [address] [place], [place] [id number] Carlota Jin MD 1 [facility], [facility] 2 [place] [phone] 01/29/2025 6:45 EDT Treatment [facility] [place] [address] [place], [place] [id number] Carlota Jin MD 1 [facility], [facility] 2 [place] [phone] 01/31/2025 6:45 EDT Treatment [facility] [place] [address] [place] [address] Carlota Jin MD 1 [facility], [facility] 2 [place] [phone] 02/02/2025 6:45 EDT Treatment [facility] [place] [address] [place] [address] Carlota Jin MD 1 [facility], [facility] 2 [place] [phone] 02/05/2025 6:45 EDT Treatment [facility] [place] [address] [place] [address] Carlota Jin MD 1 [facility], [address] [phone] 02/07/2025 6:45 EDT Treatment [facility] [place] [address] [place] [address] Carlota Jin MD 1 [facility], [address] [phone] 02/09/2025 6:45 EDT Treatment [facility] [place] [address] [place] [address] Carlota Jin MD 1 [facility], [facility] 2 [place] [phone] 02/12/2025 6:45 EDT Treatment [facility] - [place] [address] [place], [place] [id number] Carlota Jin MD 1 [facility], [facility] 2 [place] [phone] 02/14/2025 6:45 EDT Treatment [facility] [place] [address] [place], [place] [address] Carlota Jin MD [address] [place] [address], [address] [phone] 02/16/2025 6:45 EDT Treatment [facility] [place] [address] [place], [place] [id number] Carlota Jin MD [address] [place] [address], [address] [phone] 02/19/2025 6:45 EDT Treatment [facility] [address] [place] [address] Carlota Jin MD [address] [place] [address], [address] [phone] 02/21/2025 6:45 EDT Treatment [facility] [address] [place], [place] [id number] Carlota Jin MD [address] [place] [address], [facility] [address] [place] [phone] documented as of this encounter Visit Diagnoses Not on filedocumented in this encounter Care Teams Manager Loss Prevention Relationship Specialty Start Date End Date Adeola Villegas APRN Mohit [address] [address] PCP - General 10/12/16 07/06/23 documented as of this encounter
--- OUTSIDE RECORDS SUMMARY | 2024-12-05 12:22 | XMS_ITS | Encounter Summary ---
Author Organization [facility] Address [address] [place] [address] Care Team Providers Care [employer] Manager Name Role Phone Adeola Villegas APRN Primary Care Provider [phone] Encounter Details Date Type Department Care Team (Late st Contact Info) Description 06/01/2023 Documentation Visit [facility] [address] [place] [id number] Shelley Eden, RD [address] [place] [address] Social History Tobacco Use Types Packs/Day Years [...] EST Treatment [facility] [place] [address] [place] [id number] Carlota Jin MD 1 [facility], Level [address] [place] [phone] 12/08/2024 6:45 EST Treatment [facility] [address] [place] [id number] Carlota Jin MD 1 [facility], [facility] 2 [place] [phone] 12/11/2024 6:45 EST Treatment [facility] [place] [address] [place], [place] [id number] Carlota Jin MD 1 [facility], [facility] 2 [place] [phone] 12/13/2024 6:45 EST Treatment [facility] [place] [address] [place], [place] [id number] Carlota Jin MD [address] [facility], [facility] 2 [place] [phone] 12/15/2024 6:45 EST Treatment [facility] [place] [address] [place] [address] Carlota Jin MD 1 [facility], [facility] 2 [place] [phone] 12/18/2024 6:45 EST Treatment [facility] [place] [address] [place], [place] [id number] Carlota Jin MD 1 [facility], [facility] 2 [place] [phone] 12/20/2024 6:45 EST Treatment [facility] [place] [address] [place], [place] [id number] Carlota Jin MD 1 [facility], [facility] 2 [place] [phone] 12/22/2024 6:45 EST Treatment [facility] [place] [address] [place], [place] [id number] Carlota Jin MD [address] [facility], [facility] 2 [place] [phone] 12/25/2024 6:45 EST Treatment [facility] [place] [address] [place], [place] [id number] Carlota Jin MD [address] [facility], [facility] 2 [place] [phone] 12/27/2024 6:45 EST Treatment [facility] [address] [place], [place] [id number] Carlota Jin MD [address] [place] [address], [facility] 2 [place] [phone] 12/29/2024 6:45 EST Treatment [facility] [address] [place], [place] [id number] Carlota Jin MD [address] [facility], [facility] 2 [place] [phone] 01/01/2025 6:45 EDT Treatment [facility] [place] [address] [place], [place] [id number] Carlota Jin MD [address] [facility], [facility] 2 [place] [phone] 01/03/2025 6:45 EDT Treatment [facility] [address] [place], [place] [id number] Carlota Jin MD [address] [facility], [facility] 2 [place] [phone] 01/05/2025 6:45 EDT Treatment [facility] [place] [address] [place], [place] [id number] Carlota Jin MD 1 [facility], [facility] 2 [place] [phone] 01/08/2025 6:45 EDT Treatment [facility] [place] [address] [place], [place] [id number] Carlota Jin MD 1 [facility], [address] [phone] 01/10/2025 6:45 EDT Treatment [facility] [place] [address] [place], [place] [id number] Carlota Jin MD [address] [facility], [address] [phone] 01/12/2025 6:45 EDT Treatment [facility] [place] [address] [place], [place] [id number] Carlota Jin MD [address] [facility], [facility] 2 [place] [phone] 01/15/2025 6:45 EDT Treatment [facility] [place] [address] [place], [place] [id number] Carlota Jin MD [address] [facility], [facility] 2 [place] [phone] 01/17/2025 6:45 EDT Treatment [facility] [place] [address] [place], [place] [id number] Carlota Jin MD [address] [facility], [facility] 2 [place] [phone] 01/19/2025 6:45 EDT Treatment [facility] [place] [address] [place], [place] [id number] Carlota Jin MD [address] [facility], [facility] 2 [place] [phone] 01/22/2025 6:45 EDT Treatment [facility] [place] [address] [place], [place] [address] Carlota Jin MD 1 [facility], [address] [phone] 01/24/2025 6:45 EDT Treatment [facility] [place] [address] [place], [place] [id number] Carlota Jin MD [address] [facility], [facility] 2 [place] [phone] 01/26/2025 6:45 EDT Treatment [facility] [place] [address] [place], [place] [id number] Carlota Jin MD [address] [facility], [facility] 2 [place] [phone] 01/29/2025 6:45 EDT Treatment [facility] [place] [address] [place], [place] [address] Carlota Jin MD [address] [facility], [facility] 2 [place] [phone] 01/31/2025 6:45 EDT Treatment [facility] [place] [address] [place] [address] Carlota Jin MD 1 [facility], [address] [phone] 02/02/2025 6:45 EDT Treatment [facility] [place] [address] [place], [place] [address] Carlota Jin MD 1 [facility], [address] [phone] 02/05/2025 6:45 EDT Treatment [facility] [place] [address] [place] [address] Calrota Jin MD 1 [facility], [address] [phone] 02/07/2025 6:45 EDT Treatment [facility] [place] [address] [place], [place] [id number] Carlota Jin MD [address] [phone] 02/09/2025 6:45 EDT Treatment [facility] [place] [address] [place], [place] [id number] Carlota Jin MD [address] [facility], [facility] 2 [place] [phone] 02/12/2025 6:45 EDT Treatment [facility] - [place] [address] [place], [place] [id number] Carlota Jin MD [address] [facility], [facility] 2 [place] [phone] 02/14/2025 6:45 EDT Treatment [facility] [place] [address] [place], [place] [id number] Carlota Jin MD 1 [facility], [address] [phone] 02/16/2025 6:45 EDT Treatment [facility] [place] [address] [place], [place] [id number] Carlota Jin MD [address] [facility], [address] [phone] 02/19/2025 6:45 EDT Treatment [facility] [place] [address] [place], [place] [id number] Carlota Jin MD [address] [facility], [address] [phone] 02/21/2025 6:45 EDT Treatment [facility] [place] [address] [place], [place] [id number] Carlota Jin MD [address] [facility], [facility] 2 [place] [phone] documented as of this encounter Visit Diagnoses Not on filedocumented in this encounter Care Teams [employer] Manager Relationship Specialty Start Date End Date Adeola Villegas APRN [address] [place] [address] PCP - General 10/12/16 07/06/23 documented as of this encounter
--- OUTSIDE RECORDS SUMMARY | 2024-12-05 12:23 | XMS_ITS | Encounter Summary ---
Author Organization [facility] Address [address] [place] [address] Care Team Providers Care Youtuber Name Role Phone Adeola Villegas MONA Primary Care Provider [phone] Encounter Details Date Type Department Care Team (Latest Contact Info) Description 05/10/2023 8:30 EDT Treatment [facility] [address] [place] [address] Carlota Jin MD 1 [facility], Level [address] [place] [address] ESRD (end stage renal disease) ([facility]) (Primary Dx); Anemia of chronic renal failure, unspecified CKD stage; Hypoalbuminemia; Secondary hyperparathyroidism ([facility]) Social History Tobacco Use [...] - Temperature - - Respiratory Rate 18 05/10/2023 0811 EDT Oxygen Saturation - - Inhaled Oxygen Concentration - - Weight 89.8 kg (197 lb 15.6 oz) 05/10/2023 0807 EDT Height - - Body Mass Index 28.82 01/25/2023 0751 EDT documented in this encounter Miscellaneous Notes * Flowsheet Note - Teto Ribeiro RN - 05/10/2023 1544 EDT 05/10/23 1232 Post-Hemodialysis Assessment Total Blood Processed (L) 89.76 Liters On Line Clearance: spKt/V 1.42 spKt/V Dialyzer Clearance Lightly streaked Treatment UFR (ml:kg:hr) 11.21 ml:kg:hr Fluid Removed (L) 3 L Post-Dialysis Scale Weight 85.9 kg (189 lb 6 oz) Wheelchair Weight 0 kg (0 lb) Prosthesis Weight 0 kg (0 lb) Post-Treatment Weight (kg) 85.9 Treatment Weight Change (kg) 3.9 kg Day Target Weight (kg) 87.3 Post Sitting/Lying BP 154/78 Post Sitting/Lying pulse 58 Post Standing BP 156/76 Post Standing Pulse 62 Temp 36.5 ??C (97.7 ??F) Temp src Temporal Post access assessment AVF/AFG Hemostasis achieved Yes Orientation Alert and Oriented x3 Yes Time Yes Place Yes Person Yes Cooperative Yes Disoriented No Discharge Ambulation Methods Ambulatory without assistance Wrap up items Patient Response to Treatment Tolerated tx well, removed 3.0L Comments No complaints, no s/s of distress noted, VSS upon d/c * Dialysis Comprehensive - Carlota Jin MD - 05/10/2023 0830 EDT Images from the original note were not included. 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 ESRD (end stage renal disease) ([facility]) ([facility]) ??? Essential (primary) hypertension ??? Hearing loss [...] modality. Transplantation: Patient Had Prior Transplant: No Transplant Status 12/16/2022 Referral Status Declines Meets Criteria at Center? [...] Sign Review Prescribed Weight: Prescribed Weight (Kg): 88 I reviewed the patient's volume status with Nursing: Yes Average Interdialytic Fluid Gains: InterDialytic +/- 05/05/2023 05/05/2023 05/07/2023 05/07/2023 05/07/2023 05/10/2023 05/10/2023 Gain/Loss 1.7 - 3.1 3.1 - 2.9 2.9 Wt (pre) 89.2 - 90.2 90.2 - 89.8 89.8 Wt (post) - 87.1 - - 86.9 - - Treatment UFR (ml:kg:hr) - 5.98 - - 9.45 - - BP (pre) 155/72 - 147/74 147/74 - 138/83 138/83 BP (post) 183/80 - 156/73 156/73 - 157/76 157/76 Pulse (pre) 70 - 64 64 - 64 64 Pulse(post) 68 - 63 63 - 65 65 Resp (/min) 18 18 - - 16 - 18 Volume and blood pressure have been addressed with the following changes: Decrease TW 1 kg to 87 kg Consistently able to achieve estimated dry weight? Yes Blood pressure is in range for patient? Yes Any adverse intradialytic symptoms? Yes: some cramping at the end of sessions Plan: Managed per protocol Physical Exam Gen: NAD, awake, alert Resp: CTAB, unlabored breathing CV: RRR Abd: soft Ext: ,trace edema Neuro: AAOx3, moves all ext spont Skin: exposed skin is warm and dry with no obvious lesion or rash Hospitalization Hospitalization in Previous 3 Months: No Emergency Room Visit in Previous 3 Months: No Access Management Current LDAs: Hemodialysis Arteriovenous Access 02/13/19 (Active) AV Fistula Present 05/10/23 0936 Site Assessment Clean;Dry;Intact;Bruit heard;Thrill felt 05/07/23 07 Current State Active 05/10/23 0936 Status Accessed 05/10/23 0936 Is Maturing N 05/10/23 0936 Local Anesthetic None 05/07/23 07 Site Prep Chlorhexidine 05/10/23 0936 Venous Needle Size 15 G 05/10/23 0936 Arterial/Generic Needle Size 15 G 05/10/23 0936 Accessed by: Cecile Cortes 05/10/23 0936 Access Attempts 2 05/10/23 0936 Dressing Status/Care Clean/Dry/Intact 05/05/23 0742 Patient has AVF/AVG as primary access: Yes Patient has Catheter as primary access >90 days: No Home Medication Review/Update Current Outpatient Medications: ??? albuterol (ACCUNEB) 0.63 mg/3 mL nebulizer solution, Take 0.63 mg by nebulization every 4 hoursas needed for Wheezing., Disp: , Rfl: ??? albuterol 90 mcg/actuation inhaler, , Disp: , Rfl: ??? amLODIPine (NORVASC) 10 mg tablet, Take 10 mg by mouth daily., Disp: , Rfl: ??? atorvastatin (LIPITOR) 40 mg tablet, Take 40 mg by mouth daily., Disp: , Rfl: ??? BABY ASPIRIN ORAL, Take 81 mg by mouth daily., Disp: , Rfl: ??? calcium carbonate (TUMS) 200 mg calcium (500 mg) tablet,chewable, Take 1 Tablet by mouth 3 times daily with meals., Disp: , Rfl: ??? carvediloL (COREG) 12.5 mg tablet, Take 12.5 mg by mouth 2 times daily., Disp: , Rfl: ??? cholecalciferol, Vitamin D3, 25 mcg (1,000 unit) tablet, Take 2 Tablets by mouth daily., Disp: 180 Tablet, Rfl: 3 ??? famotidine (PEPCID) 40 mg tablet, Take 40 mg by mouth daily., Disp: , Rfl: ??? FLOVENT HFA 110 mcg/actuation inhaler, Inhale 1 Puff as directed., Disp: , Rfl: ??? hydroCHLOROthiazide (HYDRODIURIL) 25 mg tablet, Stop per Dr. Jin., Disp: , Rfl: ??? hydrOXYzine (ATARAX) 25 mg tablet, Take 25 mg by mouth at bedtime., Disp: , Rfl: ??? LEVEMIR FLEXPEN 100 unit/mL (3 mL) injectable pen, , Disp: , Rfl: ??? magnesium oxide (MAG-OX) 400 mg (241.3 mg magnesium) tablet, Take 400 mg by mouth daily., Disp:, Rfl: ??? MULTIVITAMIN ORAL, Take by mouth., Disp: , Rfl: ??? nortriptyline (PAMELOR) 25 mg capsule, Take 25 mg by mouth at bedtime., Disp: , Rfl: ??? pregabalin (LYRICA) 100 mg capsule, Take 100 mg by mouth 2 times daily., Disp: , Rfl: ??? sevelamer hydrochloride (RENAGEL) 800 mg tablet, Take 2 Tablets by mouth 3 times daily. (Patient taking differently: Take 1,600 mg by mouth 3 times daily. Pt reports he is now taking this.), Disp: 540 Tablet, Rfl: 3 Adjustment made to home medication: Yes: D/C hydrochlorothiazide if he is taking it (I have asked him to confirm this) Dialysis Medication Review Dialysis Plan Order Summary All Current Orders Interval Duration Due Hemodialysis Therapy Plan Dialysis Treatment In-Center Hemodialysis 3 times a week Week of 05/09/2023 Routine, ONE TIME Starting when released Prescribed [...] - UF Profile: None Dialysis Last released: Wed05/10/2023 Oxygen Therapy (Age 3 yrs. to Adult) [...] released Until Discontinued, Pain, Dialysis Last released: Wed04/19/2023 diphenhydrAMINE (BENADRYL) capsule 25 mg PRN PRN [...] of treatment. To be administered per Policy [id number]. Last released: Wed05/10/2023 sodium chloride 0.9 % BOLUS 100 mL PRN PRN 100 mL, intravenous, PRN Starting when released Until Discontinued, Other, hypotension or cramping,Dialysis Last released: Never Dialysis Weekly Labs Complete Blood Count Weekly: Wed05/12/2023 Routine, ONE TIME Starting when released, Blood, Venous, Blood Results Release to Patient (Note: Choosing Manual Release will only block results from tests performed at [facility] and does not apply for Miscellaneous Test Order): Immediate via MyChart Portal Dialysis Last released: Wed05/05/2023 Dialysis Monthly Labs Dialysis Iron (Includes Iron, IBC, and Ferritin) - Nephrology Use Only On the Mon of every 1 month [facility] 05/31/2023 Routine, ONE TIME Starting when released, Blood, Venous, Blood Results Release to Patient (Note: Choosing Manual Release will only block results from tests performed at [facility] and does not apply for Miscellaneous Test Order): Immediate via MyChart Portal Dialysis Last released: Wed04/26/2023 Dialysis Routine- Dialysis Use Only On the Mon of every 1 month [facility] 05/31/2023 Routine, ONE TIME Starting when released, Blood, Blood, Venous Results Release to Patient (Note: Choosing Manual Release will only block results from tests performed at [facility] and does not apply for Miscellaneous Test Order): Immediate via [employer] Portal Dialysis Last released: Wed04/26/2023 Postdialysis BUN with URR Calculation On the Mon of every 1 month [facility] 05/31/2023 Routine, ONE TIME Starting when released, Blood, Blood, Venous Results Release to Patient (Note: Choosing Manual Release will only block results from tests performed at [facility] and does not apply for Miscellaneous Test Order): Immediate via [facility] Portal Dialysis Last released: Wed04/26/2023 Dialysis Quarterly Labs PTH Intact On the Mon of every 3 months Wed07/26/2023 Routine, ONE TIME Starting when released, Blood, Venous, Blood Results Release to Patient (Note: Choosing Manual Release will only block results from tests performed at [facility] and does not apply for Miscellaneous Test Order): Immediate via NetMov[employer] Portal Dialysis Last released: Wed04/26/2023 Dialysis Annual [...] only block results from tests performed at [facility] and does not apply for Miscellaneous Test Order): Immediate via MyChart Portal Dialysis Last released: Never Vitamin D (25,OH) On the Wed of every 12 months Wed10/25/2023 Routine, ONE TIME Starting when released, Blood, Venous, Blood Results Release to Patient (Note: Choosing Manual Release will only block results from tests performed at [facility] and does not apply for Miscellaneous Test [...] only block results from tests performed at [facility] and does not apply for Miscellaneous Test Order): Immediate via MyChart Portal Dialysis Last released: Wed04/26/2023 HEMODIALYSIS [facility] Medications epoetin ken (EPOGEN) 20,000 unit/2 mL injection 500 Units 3 times a week Week of 05/09/2023 500 Units, intravenous, ONCE IN DIALYSIS Starting when released, Dialysis Last released: Wed05/10/2023 HEMODIALYSIS NUTRITIONAL SUPPLEMENTS Nutritional Supplements LiquaCel liquid protein liquid 30 mL Every visit Every visit 30 mL, oral, ONCE IN DIALYSIS Starting when released Last released: Wed05/10/2023 HEMODIALYSIS CKD MBD MEDS Medications calcium carbonate (TUMS) tablet 500 mg (200 mg elemental calcium) 2 Tablet Every visit Every visit 2 Tablet, oral, ONCE IN DIALYSIS Starting when released, Dialysis Last released: Wed05/10/2023 Adjustment made to dialysis medication: No Laboratory Results Dialysis Adequacy: spKt/V: 1.48 (Calculated from:; BUN Pre-Dialysis: 73 mg/dL at 04/26/2023 12:13; BUN Post-Dialysis: 21mg/dL at 04/26/2023 12:13; Pre-Treatment Weight (kg): 91.2 at 04/26/2023 7:07; Post-Treatment Weight (kg): 87.8 at 04/26/2023 11:19; Duration of Treatment (minutes): 242 minutes at 04/26/2023 11:19) Plan: Continue current dialysis prescription Anemia Management: Lab Results Component Value Date WBC 6.36 05/05/2023 HGB 9.5 (L) 05/05/2023 HGB 9.5 (L) 04/28/2023 HGB 9.4 (L) 04/21/2023 PLT 216 05/05/2023 FOLATE 17.3 11/16/2022 [id number] 11/16/2022 FERRITIN 722 (H) 04/26/2023 Current GEORGE/Dose: HEMODIALYSIS [facility] epoetin ken [...] Management: Lab Results Component Value Date LABALBU 3.3 (L) 04/26/2023 ALKPHOS 88 04/26/2023 PHOS 7.2 (H) 04/26/2023 CALCIUM 8.9 04/26/2023 CALCCA 9.5 04/26/2023 PTH 369 (H) 04/26/2023 Vitamin D: cholecalciferol (Vitamin D3) - 25 mcg (1,000 unit) sevelamer hydrochloride - 800 mg This patient does not have an active medication from one of the medication groupers. Plan: Managed per protocol Potassium Management: Lab Results Component Value Date K 5.6 (H) 04/26/2023 Prescribed Potassium Concentrate: HEMODIALYSIS Ordered at: 05/10/23 0811 Dialysate concentrate: Potassium 2 mEq/L Calcium 2.5 mEq/L Last Dialysis Prescription released on: 05/10/2023 Selected bath: Potassium 2 mEq/L Calcium 2.5 mEq/L Some recent data might be hidden sevelamer hydrochloride - 800 mg Plan: Managed per protocol Nutrition: Lab Results Component Value Date LABALBU 3.3 (L) 04/26/2023 NA 137 04/26/2023 Protein Supplements: This patient does not have an active medication from one of the medication groupers. Plan: Managed per protocol Comments: No acute issues. hydrochlorothiazide is listed on his med list but he does not know if he has been taking this. He does not know home BPs. I would prefer ARB to thiazide. Further recommendations pending inquiry. Carlota Jin MD documented in this encounter Plan of Treatment Upcoming Encounters Date Type Department Care Team (Late st Contact Info) Description 12/06/2024 6:45 EST Treatment [facility] [place] [address] [place], [place] [phone] Carlota Jin MD 1 [facility], [facility] [address] [place] [phone] 12/08/2024 6:45 EST Treatment [facility] [place] [address] [place], [place] [phone] Carlota Jin MD 1 [facility], [address] [phone] 12/11/2024 6:45 EST Treatment [facility] [place] [address] [place], [place] [phone] Carlota Jin MD 1 [facility], [facility] [address] [place] [phone] 12/13/2024 6:45 EST Treatment [facility] [place] [address] [place], [place] [phone] Carlota Jin MD 1 [facility], [facility] [address] [place] [phone] 12/15/2024 6:45 EST Treatment [facility] [place] [address] [place], [place] [address] Carlota Jin MD 1 [facility], [facility] [place] [phone] 12/18/2024 6:45 EST Treatment [facility] [place] [address] [place], [place] [phone] Carlota Jin MD 1 [facility], [facility] [place] [phone] 12/20/2024 6:45 EST Treatment [facility] [place] [address] [place], [place] [phone] Carlota Jin MD 1 [facility], [facility] [address] [place] [phone] 12/22/2024 6:45 EST Treatment [facility] [place] [address] [place], [place] [phone] Carlota Jin MD 1 [facility], [facility] [address] [place] [phone] 12/25/2024 6:45 EST Treatment [facility] [address] [place], [place] [phone] Carlota Jin MD 1 [facility], [facility] [address] [place] [phone] 12/27/2024 6:45 EST Treatment [facility] [place] [address] [place], [place] [phone] Carlota Jin MD 1 [facility], [facility] [address] [place] [phone] 12/29/2024 6:45 EST Treatment [facility] [place] [address] [place], [place] [phone] Carlota Jin MD 1 [facility], [facility] [place] [phone] 01/01/2025 6:45 EDT Treatment [facility] [place] [address] [place], [place] [id number] Carlota Jin MD 1 [facility], [facility] [address] [place] [phone] 01/03/2025 6:45 EDT Treatment [facility] [place] [address] [place], [place] [phone] Carlota Jin MD 1 [facility], [facility] [address] [place] [phone] 01/05/2025 6:45 EDT Treatment [facility] [place] [address] [place] [address] Carlota Jin MD 1 [facility], [facility] [address] [place] [phone] 01/08/2025 6:45 EDT Treatment [facility] [place] [address] [place], [place] [phone] Carlota Jin MD 1 [facility], [facility] [address] [place] [phone] 01/10/2025 6:45 EDT Treatment [facility] [place] [address] [place], [place] [phone] Carlota Jin MD 1 [facility], [facility] [address] [place] [phone] 01/12/2025 6:45 EDT Treatment [facility] [place] [address] [place], [place] [phone] Carlota Jin MD 1 [facility], [address] [phone] 01/15/2025 6:45 EDT Treatment [facility] [place] [address] [place], [place] [phone] Carlota Jin MD 1 [facility], [address] [phone] 01/17/2025 6:45 EDT Treatment [facility] [place] [address] [place], [place] [phone] Carlota Jin MD 1 [facility], [address] [phone] 01/19/2025 6:45 EDT Treatment [facility] [place] [address] [place], [place] [phone] Carlota Jin MD 1 [facility], [facility] [address] [place] [phone] 01/22/2025 6:45 EDT Treatment [facility] [place] [address] [place], [place] [phone] Carlota Jin MD 1 [facility], [facility] 2 [place] [phone] 01/24/2025 6:45 EDT Treatment [facility] [place] [address] [place], [place] [phone] Carlota Jin MD 1 [facility], [facility] 2 [place] [phone] 01/26/2025 6:45 EDT Treatment [facility] [place] [address] [place], [place] [phone] Carlota Jin MD 1 [facility], [facility] [address] [place] [phone] 01/29/2025 6:45 EDT Treatment [facility] [place] [address] [place] [address] Carlota Jin MD 1 [facility], [address] [phone] 01/31/2025 6:45 EDT Treatment [facility] [place] [address] [place], [place] [phone] Carlota Jin MD 1 [facility], [facility] 2 [place] [phone] 02/02/2025 6:45 EDT Treatment [facility] [place] [address] [place], [place] [phone] Carlota Jin MD 1 [facility], [facility] 2 [place] [phone] 02/05/2025 6:45 EDT Treatment [facility] [place] [address] [place], [place] [address] Carlota Jin MD 1 [facility], [facility] [address] [place] [phone] 02/07/2025 6:45 EDT Treatment [facility] [place] [address] [place], [place] [phone] Carlota Jin MD 1 [facility], [facility] [address] [place] [phone] 02/09/2025 6:45 EDT Treatment [facility] [place] [address] [place] [address] Carlota Jin MD 1 [facility], [address] [phone] 02/12/2025 6:45 EDT Treatment [facility] [place] [address] [place], [place] [phone] Carlota Jin MD [address] [phone] 02/14/2025 6:45 EDT Treatment [facility] [place] [address] [place], [place] [phone] Carlota Jin MD [address] [phone] 02/16/2025 6:45 EDT Treatment [facility] [place] [address] [place], [place] [phone] Carlota Jin MD 1 [facility] 2 [place] [phone] 02/19/2025 6:45 EDT Treatment [facility] [place] [address] [place] [phone] Carlota Jin MD 1 [facility], [address] [phone] 02/21/2025 6:45 EDT Treatment [facility] [place] [address] [place] [address] Carlota Jin MD 1 [facility], [address] [phone] documented as of this encounter Procedures Procedure Name Priority Date/Time Associated Diagnosis Comments HEMODIALYSIS Routine 05/10/2023 8:11 EDT ESRD (end stage renal disease) ([facility]) documented in this encounter Visit Diagnoses Diagnosis ESRD (end stage renal disease) ([facility])- Primary End stage renal disease Anemia of chronic renal failure, unspecified CKD stage Hypoalbuminemia Other disorders of plasma protein metabolism Secondary hyperparathyroidism ([facility]) Secondary hyperparathyroidism (of renal origin) documented in this encounter Administered Medications Inactive Administered Medications - up to 3 most recent administrations Medication Order MAR Action Action Date Dose Rate Site calcium carbonate (TUMS) tablet 500 mg (200 mg elemental calcium) 2 Tablet 2 Tablet, oral, ONCE IN DIALYSIS, 1 dose, On Wed05/10/23 at 0830, Routine, DialysisIndications:ESRD (end stage renal disease) ([facility]),Secondary hyperparathyroidism (HCC-CMS) Given 05/10/2023 10:19 EDT 2 Tablets epoetin ken (EPOGEN) 20,000 unit/2 mL injection 500 Units 500 Units, intravenous, ONCE IN DIALYSIS, 1 dose, On Wed05/10/23 at 0830, Routine, DialysisIndications:ESRD (end stage renal disease) ([facility]),Anemia of chronic renal failure, unspecified CKD stage Given 05/10/2023 10:19 EDT 500 Units heparin injection 9,000 Units 9,000 Units, intravenous, ONCE IN DIALYSIS, 1 dose, On Wed05/10/23 at 0830, Routine, Dialysis, Now x1 bolus 4500 units to be given at the beginning of dialysis 1500 units/hour to be given over the course of dialysis (9000 units total). Stop 1 hour prior to end of treatment. To be administered per Policy [id number].Indications:ESRD (end stage renal disease) ([facility]) Given 05/10/2023 8:21 EDT 9,000 Units LiquaCel liquid protein liquid 30 mL 30 mL, oral, ONCE IN DIALYSIS, 1 dose, On Wed05/10/23 at 0830, RoutineIndications:Hypoalbuminemi a,ESRD (end stage renal disease) ([facility]) Given 05/10/2023 9:00 EDT 30 mL documented in this encounter Orders Dialysis Count Last Ordered Date First Orde red Date HEMODIALYSIS 1 05/10/2023 documented in this encounter Care Teams Youtuber Relationship Specialty Start Date End Date Adeola Villegas APRN [address] [place] [address] PCP - General 10/12/16 07/06/23 documented as of this encounter
--- OUTSIDE RECORDS SUMMARY | 2024-12-05 12:23 | XMS_ITS | Encounter Summary ---
Author Organization [facility] Address [address] [place] [address] Care Team Providers Care Shoe Singer Name Role Phone Adeola Villegas APRN Primary Care Provider Encounter Details Date Type Department Care Team (Late st Contact Info) Description 05/14/2023 Documentation Visit [facility] [address] [place], [place] [id number] Melissa Crespo, RN Social History Tobacco Use [...] 12/06/2024 6:45 EST Treatment [facility] [address] [place] [id number] Carlota Jin MD 1 [facility] Level [address] [place] [address] 12/08/2024 6:45 EST Treatment [facility] [address] [place] [address] Carlota Jin MD 1 [facility], [facility] 2 [place] [phone] 12/11/2024 6:45 EST Treatment [facility] [place] [address] [place], [place] [address] Carlota Jin MD 1 [facility], [facility] 2 [place] [phone] 12/13/2024 6:45 EST Treatment [facility] - [place] [address] [place], [place] [id number] Carlota Jin MD 1 [facility], [facility] 2 [place] [phone] 12/15/2024 6:45 EST Treatment [facility] [place] [address] [place], [place] [phone] Carlota Jin MD 1 [facility], [facility] 2 [place] [phone] 12/18/2024 6:45 EST Treatment [facility] [address] [place] [address] Carlota Jin MD 1 [facility], [facility] 2 [place] [phone] 12/20/2024 6:45 EST Treatment [facility] [place] [address] [place], [place] [phone] Carlota Jin MD 1 [facility], [facility] 2 [place] [phone] 12/22/2024 6:45 EST Treatment [facility] - [place] [address] [place], [place] [phone] Carlota Jin MD 1 [facility], [facility] 2 [place] [phone] 12/25/2024 6:45 EST Treatment [facility] - [place] [address] [place], [place] [phone] Carlota Jin MD 1 [facility], [facility] 2 [place] [phone] 12/27/2024 6:45 EST Treatment [facility] - [place] [address] [place], [place] [phone] Carlota Jin MD 1 [facility], [facility] 2 [place] [phone] 12/29/2024 6:45 EST Treatment [facility] - [place] [address] [place], [place] [phone] Carlota Jin MD 1 [facility], [facility] 2 [place] [phone] 01/01/2025 6:45 EDT Treatment [facility] - [place] [address] [place], [place] [phone] Carlota Jin MD 1 [facility], [facility] 2 [place] [phone] 01/03/2025 6:45 EDT Treatment [facility] [place] [address] [place], [place] [phone] Carlota Jin MD 1 [facility], Level [address] [place] [phone] 01/05/2025 6:45 EDT Treatment [facility] - [place] [address] [place], [place] [address] Carlota Jin MD 1 [facility], [facility] 2 [place] [phone] 01/08/2025 6:45 EDT Treatment [facility] [place] [address] [place], [place] [phone] Carlota Jin MD 1 [facility], [facility] 2 [place] [phone] 01/10/2025 6:45 EDT Treatment [facility] [place] [address] [place] [address] Carlota Jin MD 1 [facility], [facility] 2 [place] [phone] 01/12/2025 6:45 EDT Treatment [facility] [address] [place] [address] Carlota Jin MD 1 [facility], [facility] 2 [place] [phone] 01/15/2025 6:45 EDT Treatment [facility] [address] [place], [place] [phone] Carlota Jin MD 1 [facility], [facility] 2 [place] [phone] 01/17/2025 6:45 EDT Treatment [facility] - [place] [address] [place], [place] [phone] Carlota Jin MD 1 [facility], [facility] 2 [place] [phone] 01/19/2025 6:45 EDT Treatment [facility] - [place] [address] [place], [place] [phone] Carlota Jin MD 1 [facility], [facility] 2 [place] [phone] 01/22/2025 6:45 EDT Treatment [facility] [place] [address] [place], [place] [phone] Carlota Jin MD [address] [place] [address], [facility] 2 [place] [phone] 01/24/2025 6:45 EDT Treatment [facility] - [place] [address] [place], [place] [phone] Carlota Jin MD 1 [facility], [facility] 2 [place] [phone] 01/26/2025 6:45 EDT Treatment [facility] [place] [address] [place], [place] [phone] Carlota Jin MD 1 [facility], [facility] 2 [place] [phone] 01/29/2025 6:45 EDT Treatment [facility] - [place] [address] [place], [place] [phone] Carlota Jin MD 1 [facility], [facility] 2 [place] [phone] 01/31/2025 6:45 EDT Treatment [facility] [place] [address] [place], [place] [phone] Carlota Jin MD 1 [facility], [facility] 2 [place] [phone] 02/02/2025 6:45 EDT Treatment [facility] [place] [address] [place], [place] [phone] Carlota Jin MD 1 [facility], [address] [phone] 02/05/2025 6:45 EDT Treatment [facility] [place] [address] [place], [place] [phone] Carlota Jin MD 1 [facility], [address] [phone] 02/07/2025 6:45 EDT Treatment [facility] [place] [address] [place], [place] [phone] Carlota Jin MD 1 [facility], [facility] 2 [place] [phone] 02/09/2025 6:45 EDT Treatment [facility] [place] [address] [place], [place] [phone] Carlota Jin MD 1 [facility], [facility] 2 [place] [phone] 02/12/2025 6:45 EDT Treatment [facility] [place] [address] [place], [place] [phone] Carlota Jin MD [address] [phone] 02/14/2025 6:45 EDT Treatment [facility] [place] [address] [place], [place] [phone] Carlota Jin MD [address] [place] [phone] 02/16/2025 6:45 EDT Treatment [facility] [place] [address] [place], [place] [phone] Carlota Jin MD [address] [place] [phone] 02/19/2025 6:45 EDT Treatment [facility] - [place] [address] [place], [place] [phone] Carlota Jin MD [address] [place] [phone] 02/21/2025 6:45 EDT Treatment [facility] [place] [address] [place], [place] [phone] Carlota Jin MD [address] [place] [phone] documented as of this encounter Visit Diagnoses Not on filedocumented in this encounter Care Teams Shoe Singer Relationship Specialty Start Date End Date Villegas, [place], SENIOR DATABASE ENGINEER [address] [place] [address] PCP - General 10/12/16 07/06/23 documented as of this encounter
--- OUTSIDE RECORDS SUMMARY | 2024-12-05 12:23 | XMS_ITS | Encounter Summary ---
Author Organization [facility] Address [address] [place] [address] Care Team Providers Care International Recruiter Name Role Phone Adeola Villegas MONA Primary Care Provider [phone] Encounter Details Date Type Department Care Team (Latest Contact Info) Description 05/14/2023 8:30 EDT Treatment [facility] [address] [place] [address] Carlota Jin MD 1 [facility], Level [address] [place] [phone] ESRD (end stage renal disease) ([facility]) (Primary Dx); Anemia of chronic renal failure, unspecified CKD stage; Hypoalbuminemia; Secondary hyperparathyroidism ([facility]) Social History [...] - Temperature - - Respiratory Rate 18 05/14/2023 0816 EDT Oxygen Saturation - - Inhaled Oxygen Concentration - - Weight 89 kg (196 lb 3.4 oz) 05/14/2023 0813 EDT Height - - Body Mass Index 28.56 01/25/2023 0751 EDT documented in this encounter Miscellaneous Notes * Flowsheet Note - Teto Ribeiro RN - 05/14/2023 1706 EDT 05/14/23 1248 Post-Hemodialysis Assessment Total Blood Processed (L) 89.66 Liters On Line Clearance: spKt/V 1.4 spKt/V Dialyzer Clearance Lightly streaked Treatment UFR (ml:kg:hr) 4.47 ml:kg:hr Critline refill Not done Fluid Removed (L) 2.5 L Post-Dialysis Scale Weight 87.4 kg (192 lb 10.9 oz) Wheelchair Weight 0 kg (0 lb) Prosthesis Weight 0 kg (0 lb) Post-Treatment Weight (kg) 87.4 Treatment Weight Change (kg) 1.6 kg Day Target Weight (kg) 87 Post Sitting/Lying BP 151/81 Post Sitting/Lying pulse 65 Post Standing BP 122/70 Post Standing Pulse 63 Temp 36.6 ??C (97.9 ??F) Temp src Temporal Post access assessment AVF/AFG Hemostasis achieved Yes Orientation Alert and Oriented x3 Yes Time Yes Place Yes Person Yes Cooperative Yes Disoriented No Discharge Ambulation Methods Ambulatory without assistance Wrap up items Patient Response to Treatment Pt sheldon. tx well, removed 2.5L, noted some bleeding during tx, Venous needle punctured through skin, d/t movement during tx, <100ml blood loss, repositioned needle andpressure dressing applied on hole. tx was resumed and completed w/o issues Comments Access was able to clot <10mins, Pt denies any complaints, no s/s of distress noted, VSS upon d/c documented in this encounter Plan of Treatment Upcoming Encounters Date Type Department Care Team (Late st Contact Info) Description 12/06/2024 6:45 EST Treatment [facility] - [place] [address] [place] [address] Carlota Jin MD 1 [facility] Level [address] [place] [phone] 12/08/2024 6:45 EST Treatment [facility] [place] [address] [place], [place] [phone] Carlota Jin MD 1 [facility], [facility] 2 [place] [phone] 12/11/2024 6:45 EST Treatment [facility] [place] [address] [place], [place] [phone] Carlota Jin MD 1 [facility], [facility] 2 [place] [phone] 12/13/2024 6:45 EST Treatment [facility] [address] [place], [place] [phone] Carlota Jin MD 1 [facility], [facility] 2 [place] [phone] 12/15/2024 6:45 EST Treatment [facility] [place] [address] [place], [place] [phone] Carlota Jin MD 1 [facility], [facility] 2 [place] [phone] 12/18/2024 6:45 EST Treatment [facility] [place] [address] [place], [place] [phone] Carlota Jin MD 1 [facility], [facility] 2 [place] [phone] 12/20/2024 6:45 EST Treatment [facility] [place] [address] [place] [address] Carlota Jin MD 1 [facility], [facility] 2 [place] [phone] 12/22/2024 6:45 EST Treatment [facility] - [place] [address] [place], [place] [phone] Carlota Jin MD 1 [facility], [facility] 2 [place] [phone] 12/25/2024 6:45 EST Treatment [facility] [place] [address] [place] [address] Carlota Jin MD 1 [facility], [address] [phone] 12/27/2024 6:45 EST Treatment [facility] [place] [address] [place], [place] [phone] Carlota Jin MD 1 [facility], [address] [phone] 12/29/2024 6:45 EST Treatment [facility] [place] [address] [place] [address] Carlota Jin MD 1 [facility], [facility] 2 [place] [phone] 01/01/2025 6:45 EDT Treatment [facility] [place] [address] [place], [place] [phone] Carlota Jin MD 1 [facility], [facility] 2 [place] [phone] 01/03/2025 6:45 EDT Treatment [facility] - [place] [address] [place], [place] [phone] Carlota Jin MD 1 [facility], [facility] 2 [place] [phone] 01/05/2025 6:45 EDT Treatment [facility] [place] [address] [place], [place] [phone] Carlota Jin MD 1 [facility], [facility] 2 [place] [phone] 01/08/2025 6:45 EDT Treatment [facility] [place] [address] [place], [place] [address] Carlota Jin MD 1 [facility], [address] [phone] 01/10/2025 6:45 EDT Treatment [facility] - [place] [address] [place], [place] [phone] Carlota Jin MD 1 [facility], [facility] 2 [place] [phone] 01/12/2025 6:45 EDT Treatment [facility] [place] [address] [place], [place] [phone] Carlota Jin MD 1 [facility], [facility] 2 [place] [phone] 01/15/2025 6:45 EDT Treatment [facility] - [place] [address] [place], [place] [address] Carlota Jin MD 1 [facility], [facility] 2 [place] [phone] 01/17/2025 6:45 EDT Treatment [facility] - [place] [address] [place] [address] Carlota Jin MD 1 [facility], [address] [phone] 01/19/2025 6:45 EDT Treatment [facility] [place] [address] [place], [place] [phone] Carlota Jin MD 1 [facility], [address] [phone] 01/22/2025 6:45 EDT Treatment [facility] [place] [address] [place] [address] Carlota Jin MD 1 [facility], [address] [phone] 01/24/2025 6:45 EDT Treatment [facility] [place] [address] [place], [place] [phone] Carlota Jin MD 1 [facility], [address] [phone] 01/26/2025 6:45 EDT Treatment [facility] [place] [address] [place], [place] [phone] Carlota Jin MD 1 [facility], [facility] 2 [place] [phone] 01/29/2025 6:45 EDT Treatment [facility] - [place] [address] [place], [place] [phone] Carlota Jin MD 1 [facility], [facility] 2 [place] [phone] 01/31/2025 6:45 EDT Treatment [facility] [place] [address] [place], [place] [phone] Carlota Jin MD 1 [facility], [facility] 2 [place] [phone] 02/02/2025 6:45 EDT Treatment [facility] [place] [address] [place], [place] [phone] Carlota Jin MD 1 [facility], [facility] 2 [place] [phone] 02/05/2025 6:45 EDT Treatment [facility] - [place] [address] [place], [place] [phone] Carlota Jin MD 1 [facility], [facility] 2 [place] [phone] 02/07/2025 6:45 EDT Treatment [facility] [address] [place], [place] [phone] Carlota Jin MD 1 [facility], [facility] 2 [place] [phone] 02/09/2025 6:45 EDT Treatment [facility] [place] [address] [place], [place] [address] Carlota Jin MD 1 [facility], [facility] 2 [place] [phone] 02/12/2025 6:45 EDT Treatment [facility] - [place] [address] [place], [place] [phone] Carlota Jin MD 1 [facility], [facility] 2 [place] [phone] 02/14/2025 6:45 EDT Treatment [facility] [place] [address] [place], [place] [phone] Carlota Jin MD 1 [facility], [address] [phone] 02/16/2025 6:45 EDT Treatment [facility] [place] [address] [place], [place] [phone] Carlota Jin MD 1 [facility], [facility] 2 [place] [phone] 02/19/2025 6:45 EDT Treatment [facility] [place] [address] [place], [place] [phone] Carlota Jin MD 1 [facility], [facility] 2 [place] [phone] 02/21/2025 6:45 EDT Treatment [facility] [place] [address] [place], [place] [phone] Carlota Jin MD 1 [facility], [address] [place] [phone] documented as of this encounter Procedures Procedure Name Priority Date/Time Associated Diagnosis Comments HEMODIALYSIS Routine 05/14/2023 8:16 EDT ESRD (end stage renal disease) ([facility]) documented in this encounter Visit Diagnoses Diagnosis ESRD (end stage renal disease) ([facility])- Primary End stage renal disease Anemia of chronic renal failure, unspecified CKD stage Hypoalbuminemia Other disorders of plasma protein metabolism Secondary hyperparathyroidism ([facility]) Secondary hyperparathyroidism (of renal origin) documented in this encounter Administered Medications Inactive Administered Medications - up to 3 most recent administrations Medication Order MAR Action Action Date Dose Rate Site calcium carbonate (TUMS) tablet 500 mg (200 mg elemental calcium) 2 Tablet 2 Tablet, oral, ONCE IN DIALYSIS, 1 dose, On Wed05/14/23 at 0845, Routine, DialysisIndications:ESRD (end stage renal disease) ([facility]),Secondary hyperparathyroidism ([facility]) Given 05/14/2023 8:55 EDT 2 Tablets epoetin ken (EPOGEN) 20,000 unit/2 mL injection 500 Units 500 Units, intravenous, ONCE IN DIALYSIS, 1 dose, On Wed05/14/23 at 0845, Routine, DialysisIndications:ESRD (end stage renal disease) ([facility]),Anemia of chronic renal failure, unspecified CKD stage Given 05/14/2023 8:54 EDT 500 Units heparin injection 9,000 Units 9,000 Units, intravenous, ONCE IN DIALYSIS, 1 dose, On Wed05/14/23 at 0845, Routine, Dialysis, Now x1 bolus 4500 units to be given at the beginning of dialysis 1500 units/hour to be given over the course of dialysis (9000 units total). Stop 1 hour prior to end of treatment. To be administered per Policy [id number].Indications:ESRD (end stage renal disease) ([facility]) Given 05/14/2023 8:31 EDT 9,000 Units LiquaCel liquid protein liquid 30 mL 30 mL, oral, ONCE IN DIALYSIS, 1 dose, On Wed05/14/23 at 0845, RoutineIndications:Hypoalbuminemi a,ESRD (end stage renal disease) ([facility]) Given 05/14/2023 8:54 EDT 30 mL documented in this encounter Orders Dialysis Count Last Ordered Date First Orde red Date HEMODIALYSIS 1 05/14/2023 documented in this encounter Care Teams International Recruiter Relationship Specialty Start Date End Date Adeola Villegas APRN [address] [place] [address] PCP - General 10/12/16 07/06/23 documented as of this encounter
--- OUTSIDE RECORDS SUMMARY | 2024-12-05 12:23 | XMS_ITS | Encounter Summary ---
Author Organization [facility] Address [address] [place] [address] Care Team Providers Care Structural Technician Name Role Phone Adeola Villegas APRN Primary Care Provider [phone] Encounter Details Date Type Department Care Team (Latest Contact Info) Description 05/24/2023 6:45 EDT Treatment [facility] [address] [place] [address] Carlota Jin MD 1 [facility], Level [address] [place] [address] ESRD (end stage renal disease) ([facility]) (Primary Dx); Anemia of chronic renal failure, unspecified CKD stage; Hypoalbuminemia; Secondary hyperparathyroidism ([facility]) [...] - Temperature - - Respiratory Rate 16 05/24/2023 0627 EDT Oxygen Saturation - - Inhaled Oxygen Concentration - - Weight 89.4 kg (197 lb 1.5 oz) 05/24/2023 0624 E DT Height - - Body Mass Index 28.69 01/25/2023 0751 EDT documented in this encounter Miscellaneous Notes * Flowsheet Note - Marcela Cox RN - 05/24/2023 1121 EDT 05/24/23 1039 Post-Hemodialysis Assessment Total Blood Processed (L) 90.59 Liters On Line Clearance: spKt/V 1.46 spKt/V Dialyzer Clearance Lightly streaked Treatment UFR (ml:kg:hr) 6.84 ml:kg:hr Critline refill Not done Fluid Removed (L) 2.5 L Post-Dialysis Scale Weight 87.9 kg (193 lb 12.6 oz) Wheelchair Weight 0 kg (0 lb) Prosthesis Weight 0.9 kg (1 lb 15.8 oz) Post-Treatment Weight (kg) 87 Treatment Weight Change (kg) 2.4 kg Day Target Weight (kg) 87.4 Post Sitting/Lying BP 150/74 Post Sitting/Lying pulse 64 Post Standing BP 137/82 Post Standing Pulse 72 Temp 36 ??C (96.8 ??F) Temp src [...] EST Treatment [facility] [place] [address] [place] [address] Carlota Jin MD 1 [facility], Level [address] [place] [address] 12/08/2024 6:45 EST Treatment [facility] [address] [place], [place] [address] Carlota Jin MD 1 [facility], Level [address] [place] [phone] 12/11/2024 6:45 EST Treatment [facility] [place] [address] [place], [place] [address] Carlota Jin MD 1 [facility], [facility] 2 [place] [phone] 12/13/2024 6:45 EST Treatment [facility] [place] [address] [place], [place] [id number] Carlota Jin MD 1 [facility], [facility] 2 [place] [phone] 12/15/2024 6:45 EST Treatment [facility] [place] [address] [place], [place] [address] Carlota Jin MD 1 [facility], [facility] 2 [place] [phone] 12/18/2024 6:45 EST Treatment [facility] [place] [address] [place] [address] Carlota Jin MD 1 [facility], [facility] 2 [place] [phone] 12/20/2024 6:45 EST Treatment [facility] [place] [address] [place], [place] [address] Carlota Jin MD 1 [facility], [facility] 2 [place] [phone] 12/22/2024 6:45 EST Treatment [facility] - [place] [address] [place], [place] [id number] Carlota Jin MD 1 [facility], [facility] 2 [place] [phone] 12/25/2024 6:45 EST Treatment [facility] [place] [address] [place], [place] [phone] Carlota Jin MD 1 [facility], [facility] 2 [place] [phone] 12/27/2024 6:45 EST Treatment [facility] - [place] [address] [place], [place] [id number] Carlota Jin MD 1 [facility], [facility] 2 [place] [phone] 12/29/2024 6:45 EST Treatment [facility] - [place] [address] [place], [place] [id number] Carlota Jin MD [address] [place] [address], [facility] 2 [place] [phone] 01/01/2025 6:45 EDT Treatment [facility] - [place] [address] [place], [place] [phone] Carlota Jin MD 1 [facility], [facility] 2 [place] [phone] 01/03/2025 6:45 EDT Treatment [facility] [place] [address] [place], [place] [address] Carlota Jin MD 1 [facility], [facility] 2 [place] [phone] 01/05/2025 6:45 EDT Treatment [facility] - [place] [address] [place], [place] [address] Carlota Jin MD 1 [facility], [facility] 2 [place] [phone] 01/08/2025 6:45 EDT Treatment [facility] [place] [address] [place] [address] [address] MD [address] [facility], [facility] 2 [place] [phone] 01/10/2025 6:45 EDT Treatment [facility] - [place] [address] [place] [address] Carl[address] MD 1 [facility], [facility] 2 [place] [phone] 01/12/2025 6:45 EDT Treatment [facility] [place] [address] [place] [address] [address] MD [address] [facility], [facility] 2 [place] [phone] 01/15/2025 6:45 EDT Treatment [facility] [place] [address] [place], [place] [phone] Carlota Jin MD 1 [facility], [facility] 2 [place] [phone] 01/17/2025 6:45 EDT Treatment [facility] [place] [address] [place], [place] [phone] Carlota Jin MD 1 [facility], [facility] 2 [place] [phone] 01/19/2025 6:45 EDT Treatment [facility] [place] [address] [place], [place] [phone] Carlota Jin MD 1 [facility], [facility] 2 [place] [phone] 01/22/2025 6:45 EDT Treatment [facility] - [place] [address] [place] [address] [address] MD 1 [facility], [address] [phone] 01/24/2025 6:45 EDT Treatment [facility] [place] [address] [place], [place] [id number] Carlota Jin MD 1 [facility], [facility] 2 [place] [phone] 01/26/2025 6:45 EDT Treatment [facility] [place] [address] [place], [place] [phone] Carlota Jin MD 1 [facility], [facility] 2 [place] [phone] 01/29/2025 6:45 EDT Treatment [facility] [place] [address] [place], [place] [address] Carlota Jin MD 1 [facility], [facility] 2 [place] [phone] 01/31/2025 6:45 EDT Treatment [facility] [place] [address] [place] [address] Carlota Jin MD 1 [facility], [facility] 2 [place] [phone] 02/02/2025 6:45 EDT Treatment [facility] [place] [address] [place], [place] [address] [phone] MD 1 [facility], [facility] 2 [place] [phone] 02/05/2025 6:45 EDT Treatment [facility] [place] [address] [place] [address] Carl[address] Jin MD 1 [facility], [facility] 2 [place] [phone] 02/07/2025 6:45 EDT Treatment [facility] [place] [address] [place] [address] Carl[address] Jin MD 1 [facility], [facility] 2 [place] [phone] 02/09/2025 6:45 EDT Treatment [facility] - [place] [address] [place], [place] [phone] Carlota Jin MD 1 [facility], [facility] 2 [place] [phone] 02/12/2025 6:45 EDT Treatment [facility] [place] [address] [place], [place] [phone] Carlota Jin MD 1 [facility], [address] [phone] 02/14/2025 6:45 EDT Treatment [facility] - [place] [address] [place], [place] [phone] Carlota Jin MD [address] [phone] 02/16/2025 6:45 EDT Treatment [facility] [place] [address] [place], [place] [phone] Carlota Jin MD [address] [phone] 02/19/2025 6:45 EDT Treatment [facility] - [place] [address] [place], [place] [phone] Carlota Jin MD 1 [facility], [address] [phone] 02/21/2025 6:45 EDT Treatment [facility] [address] [place], [place] [phone] Carlota Jin MD 1 [facility], [address] [phone] documented as of this encounter Procedures Procedure Name Priority Date/Time Associated Diagnosis Comments HEMODIALYSIS Routine 05/24/2023 6:27 EDT ESRD (end stage renal disease) [...] oral, ONCE IN DIALYSIS, 1 dose, On Wed05/24/23 at 0645, Routine, DialysisIndications:ESRD (end stage renal disease) ([facility]),Secondary hyperparathyroidism ([facility]) Given 05/24/2023 6:37 EDT 2 Tablets epoetin ken (EPOGEN) 20,000 unit/2 mL injection 500 Units 500 Units, intravenous, ONCE IN DIALYSIS, 1 dose, On Wed05/24/23 at 0645, Routine, DialysisIndications:ESRD (end stage renal disease) ([facility]),Anemia of chronic renal failure, unspecified CKD stage Given 05/24/2023 6:36 EDT 500 Units heparin injection 9,000 Units 9,000 Units, intravenous, ONCE IN DIALYSIS, 1 dose, On Wed05/24/23 at 0645, Routine, Dialysis, Now x1 bolus 4500 units to be given at the beginning of dialysis 1500 units/hour to be given over the course of dialysis (9000 units total). Stop 1 hour prior to end of treatment. To be administered per Policy [id number].Indications:ESRD (end stage renal disease) ([facility]) Given 05/24/2023 6:36 EDT 9,000 Units LiquaCel liquid protein liquid 30 mL 30 mL, oral, ONCE IN DIALYSIS, 1 dose, On Wed05/24/23 at 0645, RoutineIndications:Hypoalbuminemi a,ESRD (end stage renal disease) ([facility]) Given 05/24/2023 6:36 EDT 30 mL documented in this encounter Orders Dialysis Count Last Ordered Date First Orde red Date HEMODIALYSIS 1 05/24/2023 documented in this encounter Care Teams Structural Technician Relationship Specialty Start Date End Date Adeola Villegas APRN [address] [place] [address] PCP - General 10/12/16 07/06/23 documented as of this encounter
--- OUTSIDE RECORDS SUMMARY | 2024-12-05 12:23 | XMS_ITS | Encounter Summary ---
Author Organization [facility] Address [address] [place] [address] Care Team Providers Care Director Of Scout Work Name Role Phone Adeola Villegas APRN Primary Care Provider [phone] Encounter Details Date Type Department Care Team (Late st Contact Info) Description 05/24/2023 Documentation Visit [facility] [address] [place] [address] Alexa Estrada, [facility] [address] [place] [address] Social History Tobacco Use Types Packs/Day Years [...] Progress Notes * Alexa Estrada LICSW - 05/24/2023 1100 EDT Broadcast Technician's Monthly Assessment UPDATE: SW met with pt while on dialysis, pt is interested in [employer] mileage reimbursement. Pt said he alreadyfilled out application, SW let him know that this SW had not received it. Pt said he would look forit at home, SW will provide blank application if he can't find the application at home. SW will follow up next week. Current Living Situation: Lives with family and Lives with friends Lives with family Pt lives with his , Hoda, in their apartment in [place]. He rents the apartment and has a shared kitchen with the other tenant. The apartment has a back entry to his room and bathroom, but in order to get to the kitchen he has to go up 13 stairs which is difficult due to knee pain. 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 Education: Highest level of education: high school [...] - [place] [address] [place], [place] [phone] Carlota Jin MD 1 [facility], [facility] 2 [place] [phone] 12/08/2024 6:45 EST Treatment [facility] [place] [address] [place], [place] [phone] Carlota Jin MD 1 [facility], [facility] 2 [place] [phone] 12/11/2024 6:45 EST Treatment [facility] [place] [address] [place], [place] [phone] Carlota Jin MD 1 [facility], [facility] 2 [place] [phone] 12/13/2024 6:45 EST Treatment [facility] [place] [address] [place], [place] [phone] Carlota Jin MD 1 [facility], [facility] 2 [place] [phone] 12/15/2024 6:45 EST Treatment [facility] [place] [address] [place], [place] [phone] Carlota Jin MD 1 [facility], [facility] 2 [place] [phone] 12/18/2024 6:45 EST Treatment [facility] [place] [address] [place] [address] Carlota Jin MD 1 [facility], [facility] 2 [place] [phone] 12/20/2024 6:45 EST Treatment [facility] [place] [address] [place], [place] [phone] Carlota Jin MD 1 [facility], [facility] 2 [place] [phone] 12/22/2024 6:45 EST Treatment [facility] [place] [address] [place], [place] [phone] Carlota Jin MD 1 [facility], [facility] 2 [place] [phone] 12/25/2024 6:45 EST Treatment [facility] [place] [address] [place], [place] [address] Carlota Jin MD 1 [facility], [facility] 2 [place] [phone] 12/27/2024 6:45 EST Treatment [facility] [place] [address] [place] [address] Cralota Jin MD 1 [facility], [facility] 2 [place] [phone] 12/29/2024 6:45 EST Treatment [facility] [place] [address] [place], [place] [address] Carlota Jin MD 1 [facility], [facility] 2 [place] [phone] 01/01/2025 6:45 EDT Treatment [facility] [place] [address] [place], [place] [address] Carlota Jin MD 1 [facility], [facility] 2 [place] [phone] 01/03/2025 6:45 EDT Treatment [facility] - [place] [address] [place] [address] Carlota Jin MD 1 [facility], [facility] 2 [place] [phone] 01/05/2025 6:45 EDT Treatment [facility] - [place] [address] [place], [place] [phone] Carlota Jin MD 1 [facility], [facility] 2 [place] [phone] 01/08/2025 6:45 EDT Treatment [facility] - [place] [address] [place], [place] [address] Carlota Jin MD 1 [facility], [facility] 2 [place] [phone] 01/10/2025 6:45 EDT Treatment [facility] - [place] [address] [place], [place] [phone] Carlota Jin MD 1 [facility], [facility] 2 [place] [phone] 01/12/2025 6:45 EDT Treatment [facility] [place] [address] [place], [place] [address] Carlota Jin MD 1 [facility], [facility] 2 [place] [phone] 01/15/2025 6:45 EDT Treatment [facility] - [place] [address] [place], [place] [id number] Carlota Jin MD 1 [facility], [address] [phone] 01/17/2025 6:45 EDT Treatment [facility] - [place] [address] [place], [place] [id number] Carlota Jin MD 1 [facility], [address] [phone] 01/19/2025 6:45 EDT Treatment [facility] - [place] [address] [place], [place] [phone] Carlota Jin MD [address] [phone] 01/22/2025 6:45 EDT Treatment [facility] - [place] [address] [place], [place] [id number] Carlota Jin MD [address] [phone] 01/24/2025 6:45 EDT Treatment [facility] - [place] [address] [place], [place] [id number] Carlota Jin MD 1 [facility], [facility] 2 [place] [phone] 01/26/2025 6:45 EDT Treatment [facility] - [place] [address] [place], [place] [phone] Carlota Jin MD 1 [facility], [facility] 2 [place] [phone] 01/29/2025 6:45 EDT Treatment [facility] [place] [address] [place], [place] [id number] Carlota Jin MD 1 [facility], [facility] 2 [place] [phone] 01/31/2025 6:45 EDT Treatment [facility] [place] [address] [place], [place] [id number] Carlota Jin MD 1 [facility], [facility] 2 [place] [phone] 02/02/2025 6:45 EDT Treatment [facility] [place] [address] [place] [address] Carlota Jin MD 1 [facility], [facility] 2 [place] [phone] 02/05/2025 6:45 EDT Treatment [facility] [place] [address] [place], [place] [id number] Carlota Jin MD 1 [facility], [facility] 2 [place] [phone] 02/07/2025 6:45 EDT Treatment [facility] [place] [address] [place], [place] [id number] Carlota Jin MD 1 [facility], [address] [phone] 02/09/2025 6:45 EDT Treatment [facility] - [place] [address] [place], [place] [id number] Carlota Jin MD 1 [facility], [address] [phone] 02/12/2025 6:45 EDT Treatment [facility] - [place] [address] [place], [place] [phone] Carlota Jin MD 1 [facility], [address] [phone] 02/14/2025 6:45 EDT Treatment [facility] - [place] [address] [place], [place] [phone] Carlota Jin MD 1 [facility], [address] [phone] 02/16/2025 6:45 EDT Treatment [facility] - [place] [address] [place], [place] [phone] Carlota Jin MD [address] [place] [address], [address] [phone] 02/19/2025 6:45 EDT Treatment [facility] - [place] [address] [place], [place] [phone] Carlota Jin MD 1 [facility], Level [address] [place] [phone] 02/21/2025 6:45 EDT Treatment [facility] [address] [place] [address] Carlota Jin MD 1 [facility], Level [address] [place] [phone] documented as of this encounter Visit Diagnoses Not on filedocumented in this encounter Care Teams Director Of Scout Work Relationship Specialty Start Date End Date Adeola Villegas APRN [address] [facility] 1 [place] [address] PCP - General 10/12/16 07/06/23 documented as of this encounter
--- OUTSIDE RECORDS SUMMARY | 2024-12-05 12:23 | XMS_ITS | Encounter Summary ---
Author Organization [facility] Address [address] [place] [address] Care Team Providers Care Senior Hadoop Developer Name Role Phone Adeola Villegas APRN Primary Care Provider [phone] Encounter Details Date Type Department Care Team (Latest Contact Info) Description 05/07/2023 7:15 EDT Treatment [facility] [address] [place] [address] Carlota Jin MD 1 [facility], Level [address] [place] [address] ESRD (end stage renal disease) ([facility]) (Primary Dx); Anemia of chronic renal failure, unspecified CKD stage; Hypoalbuminemia; Secondary hyperparathyroidism ([facility]) Social History Tobacco Use Types [...] - Temperature - - Respiratory Rate 16 05/07/2023 1119 EDT Oxygen Saturation - - Inhaled Oxygen Concentration - - Weight - - Height - - Body Mass Index - - documented in this encounter Miscellaneous Notes * Flowsheet Note - Melissa Crespo RN - 05/07/2023 1620 EDT 05/07/23 1119 Post-Hemodialysis Assessment Total Blood Processed (L) 89.69 Liters On Line Clearance: spKt/V 1.51 spKt/V Dialyzer Clearance Lightly streaked Final Critline Profile (%/hr) -2.61 Final Profile Profile A Critline refill Positive (33.1 - 32.6, Pos refill per Critline) Fluid Removed (L) 3 L Post-Dialysis Scale Weight 86.9 kg (191 lb 9.3 oz) Wheelchair Weight 0 kg (0 lb) Prosthesis Weight 0 kg (0 lb) Post-Treatment Weight (kg) 86.9 Post Sitting/Lying BP 114/77 Post Sitting/Lying pulse 62 Post Standing BP 144/74 Post Standing Pulse 65 Temp 36.6 ??C (97.9 ??F) Temp src Temporal Resp 16 Post access assessment AVF/AFG Hemostasis achieved Yes [...] 12/06/2024 6:45 EST Treatment [facility] [address] [place], [place] [id number] Carlota Jin MD 1 [facility], [address] [place] [address] 12/08/2024 6:45 EST Treatment [facility] [address] [place] [id number] Carlota Jin MD 1 [facility], Level [address] [place] [address] 12/11/2024 6:45 EST Treatment [facility] [address] [place], [place] [id number] Carlota Jin MD 1 [facility], [facility] 2 [place] [phone] 12/13/2024 6:45 EST Treatment [facility] [address] [place], [place] [id number] Carlota Jin MD 1 [facility], [facility] 2 [place] [phone] 12/15/2024 6:45 EST Treatment [facility] [address] [place] [address] Carlota Jin MD [address] [place] [address], [facility] 2 [place] [phone] 12/18/2024 6:45 EST Treatment [facility] [address] [place], [place] [id number] Carlota Jin MD 1 [facility], [facility] 2 [place] [phone] 12/20/2024 6:45 EST Treatment [facility] [place] [address] [place], [place] [phone] Carlota Jin MD 1 [facility], [facility] 2 [place] [phone] 12/22/2024 6:45 EST Treatment [facility] [address] [place], [place] [id number] Carlota Jin MD 1 [facility], [facility] 2 [place] [phone] 12/25/2024 6:45 EST Treatment [facility] [address] [place], [place] [phone] Carlota Jin MD 1 [facility], [facility] 2 [place] [phone] 12/27/2024 6:45 EST Treatment [facility] [address] [place], [place] [id number] Carlota Jin MD 1 [facility], [facility] 2 [place] [phone] 12/29/2024 6:45 EST Treatment [facility] [address] [place], [place] [id number] Carlota Jin MD 1 [facility], [facility] 2 [place] [phone] 01/01/2025 6:45 EDT Treatment [facility] [address] [place], [place] [phone] Carlota Jin MD 1 [facility], [facility] 2 [place] [phone] 01/03/2025 6:45 EDT Treatment [facility] [address] [place], [place] [phone] Carlota Jin MD 1 [facility], [facility] 2 [place] [phone] 01/05/2025 6:45 EDT Treatment [facility] [address] [place], [place] [id number] Carlota Jin MD 1 [facility], [facility] 2 [place] [phone] 01/08/2025 6:45 EDT Treatment [facility] [address] [place], [place] [id number] Carlota Jin MD 1 [facility], [facility] 2 [place] [phone] 01/10/2025 6:45 EDT Treatment [facility] [address] [place], [place] [id number] Carlota Jin MD 1 [facility], [address] [phone] 01/12/2025 6:45 EDT Treatment [facility] [address] [place], [place] [address] Carlota Jin MD 1 [facility], [facility] 2 [place] [phone] 01/15/2025 6:45 EDT Treatment [facility] [address] [place], [place] [id number] Carlota Jin MD 1 [facility], [facility] 2 [place] [phone] 01/17/2025 6:45 EDT Treatment [facility] [address] [place], [place] [id number] Carlota Jin MD 1 [facility], [facility] 2 [place] [phone] 01/19/2025 6:45 EDT Treatment [facility] [address] [place], [place] [id number] Carlota Jin MD 1 [facility], [facility] 2 [place] [phone] 01/22/2025 6:45 EDT Treatment [facility] [address] [place], [place] [phone] Carlota Jin MD 1 [facility], [address] [phone] 01/24/2025 6:45 EDT Treatment [facility] [address] [place], [place] [id number] Carlota Jin MD 1 [facility], [address] [phone] 01/26/2025 6:45 EDT Treatment [facility] [address] [place], [place] [phone] Carlota Jin MD 1 [facility], [facility] 2 [place] [phone] 01/29/2025 6:45 EDT Treatment [facility] [address] [place], [place] [id number] Carlota Jin MD 1 [facility], [facility] 2 [place] [phone] 01/31/2025 6:45 EDT Treatment [facility] [address] [place], [place] [phone] Carlota Jin MD 1 [facility], [facility] 2 [place] [phone] 02/02/2025 6:45 EDT Treatment [facility] [address] [place], [place] [phone] Carlota Jin MD 1 [facility], [facility] 2 [place] [phone] 02/05/2025 6:45 EDT Treatment [facility] [address] [place] [address] Carlota Jin MD 1 [facility], [address] [phone] 02/07/2025 6:45 EDT Treatment [facility] [address] [place], [place] [phone] Carlota Jin MD 1 [facility], [facility] 2 [place] [phone] 02/09/2025 6:45 EDT Treatment [facility] [address] [place], [place] [phone] Carlota Jin MD 1 [facility], [facility] 2 [place] [phone] 02/12/2025 6:45 EDT Treatment [facility] [address] [place], [place] [address] Carlota Jin MD [address] [phone] 02/14/2025 6:45 EDT Treatment [facility] [address] [place], [place] [phone] Carlota Jin MD [address] [phone] 02/16/2025 6:45 EDT Treatment [facility] [place] [address] [place], [place] [phone] Carlota Jin MD [address] [phone] 02/19/2025 6:45 EDT Treatment [facility] [address] [place], [place] [phone] Carlota Jin MD [address] [phone] 02/21/2025 6:45 EDT Treatment [facility] [address] [place], [place] [id number] Carlota Jin MD [address] [phone] documented as of this encounter Procedures Procedure Name Priority Date/Time Associated Diagnosis Comments HEMODIALYSIS Routine 05/07/2023 7:09 EDT ESRD (end stage renal disease) ([facility]) documented in this encounter Visit Diagnoses Diagnosis ESRD (end stage renal disease) ([facility])- Primary End stage renal disease Anemia of chronic renal failure, unspecified CKD stage Hypoalbuminemia Other disorders of plasma protein metabolism Secondary hyperparathyroidism ([facility]) Secondary hyperparathyroidism (of renal origin) documented in this encounter Administered Medications Inactive Administered Medications - up to 3 most recent administrations Medication Order MAR Action Action Date Dose Rate Site calcium carbonate (TUMS) tablet 500 mg (200 mg elemental calcium) 2 Tablet 2 Tablet, oral, ONCE IN DIALYSIS, 1 dose, On Wed05/07/23 at 0730, Routine, DialysisIndications:ESRD (end stage renal disease) ([facility]),Secondary hyperparathyroidism ([facility]) Given 05/07/2023 10:12 EDT 2 Tablets epoetin ken (EPOGEN) 20,000 unit/2 mL injection 500 Units 500 Units, intravenous, ONCE IN DIALYSIS, 1 dose, On Wed05/07/23 at 0730, Routine, DialysisIndications:ESRD (end stage renal disease) ([facility]),Anemia of chronic renal failure, unspecified CKD stage Given 05/07/2023 10:10 EDT 500 Units heparin injection 9,000 Units 9,000 Units, intravenous, ONCE IN DIALYSIS, 1 dose, On Wed05/07/23 at 0730, Routine, Dialysis, Now x1 bolus 4500 units to be given at the beginning of dialysis 1500 units/hour to be given over the course of dialysis (9000 units total). Stop 1 hour prior to end of treatment. To be administered per Policy [id number].Indications:ESRD (end stage renal disease) ([facility]) Given 05/07/2023 10:10 EDT 9,000 Units LiquaCel liquid protein liquid 30 mL 30 mL, oral, ONCE IN DIALYSIS, 1 dose, On Wed05/07/23 at 0730, RoutineIndications:Hypoalbuminemi a,ESRD (end stage renal disease) ([facility]) Given 05/07/2023 10:12 EDT 30 mL documented in this encounter Orders Dialysis Count Last Ordered Date First Orde red Date HEMODIALYSIS 05/07/2023 documented in this encounter Care Teams Senior Hadoop Developer Relationship Specialty Start Date End Date Adeola Villegas APRN [address] [place] [address] PCP - General 10/12/16 07/06/23 documented as of this encounter
--- OUTSIDE RECORDS SUMMARY | 2024-12-05 12:23 | XMS_ITS | Encounter Summary ---
Author Organization [facility] Address [address] [place] [address] Care Team Providers Care Slab Worker Name Role Phone Adeola Villegas MONA Primary Care Provider [phone] Encounter Details Date Type Department Care Team (Latest Contact Info) Description 05/12/2023 8:30 EDT Treatment [facility] [address] [place] [address] Carlota Jin MD 1 [facility], Level [address] [place] [address] ESRD (end stage renal disease) ([facility]) (Primary Dx); Anemia of chronic renal failure, unspecified CKD stage; Hypoalbuminemia; Secondary hyperparathyroidism ([facility]) Social History Tobacco Use Types Packs/Day [...] - Temperature - - Respiratory Rate 18 05/12/2023 0811 EDT Oxygen Saturation - - Inhaled Oxygen Concentration - - Weight 91 kg (200 lb 9.9 oz) 05/12/2023 0810 EDT Height - - Body Mass Index 29.2 01/25/2023 0751 EDT documented in this encounter Miscellaneous Notes * Flowsheet Note - Teto Ribeiro RN - 05/12/2023 1508 EDT 05/12/23 1252 Post-Hemodialysis Assessment Total Blood Processed (L) 89.98 Liters On Line Clearance: spKt/V 1.39 spKt/V Dialyzer Clearance Lightly streaked Treatment UFR (ml:kg:hr) 8.28 ml:kg:hr Fluid Removed (L) 3.19 L Post-Dialysis Scale Weight 88 kg (194 lb 0.1 oz) Wheelchair Weight 0 kg (0 lb) Prosthesis Weight 0 kg (0 lb) Post-Treatment Weight (kg) 88 Treatment Weight Change (kg) 3 kg Day Target Weight (kg) 88 Post Sitting/Lying BP 139/79 Post Sitting/Lying pulse 58 Post Standing BP 143/78 Post Standing Pulse 62 Temp 36.6 ??C (97.9 ??F) Temp src Temporal Post access assessment AVF/AFG Hemostasis achieved Yes Orientation Alert and Oriented x3 Yes Time Yes Place Yes Person Yes Cooperative Yes Disoriented No Discharge Ambulation Methods Ambulatory without assistance Wrap up items Patient Response to Treatment Goal lowered d/t cramping during tx, removed 3200/3500 Comments No complaints, no s.s of distress noted, VSS upon d/c * Dialysis Rounding - Skye Gomez NP - 05/12/2023 0830 EDT Dialysis Provider's Routine Assessment Gerson Bruner was seen and examined as appropriate during Dialysis. Pertinent lab results were reviewed. Changes since last visit: None Changes to current prescriptions/orders: None Pt feeling well today, he is considering smoking cessation, he is having a lot of anxiety regardingfinancing, requests to talk with SW-message relayed. Skye Gomez NP documented in this encounter Plan of Treatment Upcoming Encounters Date Type Department Care Team (Late st Contact Info) Description 12/06/2024 6:45 EST Treatment [facility] - [place] [address] [place], [place] [phone] Carlota Jin MD 1 [facility] [place] [phone] 12/08/2024 6:45 EST Treatment [facility] - [place] [address] [place], [place] [phone] Carlota Jin MD 1 [facility], [facility] [place] [phone] 12/11/2024 6:45 EST Treatment [facility] - [place] [address] [place], [place] [phone] Carlota Jin MD 1 [facility], [facility] [place] [phone] 12/13/2024 6:45 EST Treatment [facility] - [place] [address] [place], [place] [phone] Carlota Jin MD 1 [facility], [facility] [address] [place] [phone] 12/15/2024 6:45 EST Treatment [facility] - [place] [address] [place], [place] [phone] Carlota Jin MD 1 [facility], [facility] [place] [phone] 12/18/2024 6:45 EST Treatment [facility] - [place] [address] [place], [place] [phone] Carlota Jin MD 1 [facility], Level [address] [place] [phone] 12/20/2024 6:45 EST Treatment [facility] - [place] [address] [place], [place] [id number] Carlota Jin MD 1 [facility], [facility] [place] [phone] 12/22/2024 6:45 EST Treatment [facility] - [place] [address] [place], [place] [phone] Carlota Jin MD 1 [facility], [facility] [place] [phone] 12/25/2024 6:45 EST Treatment [facility] - [place] [address] [place], [place] [phone] Carlota Jin MD 1 [facility], [facility] [place] [phone] 12/27/2024 6:45 EST Treatment [facility] - [place] [address] [place] [id number] Carlota Jin MD 1 [facility], [facility] [place] [phone] 12/29/2024 6:45 EST Treatment [facility] - [place] [address] [place], [place] [phone] Carlota Jin MD 1 [facility], [facility] [place] [phone] 01/01/2025 6:45 EDT Treatment [facility] - [place] [address] [place], [place] [id number] Carlota Jin MD 1 [facility], [facility] [place] [phone] 01/03/2025 6:45 EDT Treatment [facility] - [place] [address] [place], [place] [phone] Carlota Jin MD [address] [place] [address], [address] [phone] 01/05/2025 6:45 EDT Treatment [facility] - [place] [address] [place], [place] [phone] Carlota Jin MD [address] [place] [address], [address] [phone] 01/08/2025 6:45 EDT Treatment [facility] - [place] [address] [place], [place] [phone] Carlota Jin MD [address] [place] [address], [facility] [address] [place] [phone] 01/10/2025 6:45 EDT Treatment [facility] - [place] [address] [place], [place] [phone] Carlota Jin MD 1 [facility], [facility] [place] [phone] 01/12/2025 6:45 EDT Treatment [facility] - [place] [address] [place], [place] [id number] Carlota Jin MD 1 [facility], [facility] [place] [phone] 01/15/2025 6:45 EDT Treatment [facility] - [place] [address] [place], [place] [phone] Carlota Jin MD 1 [facility], [facility] [place] [phone] 01/17/2025 6:45 EDT Treatment [facility] - [place] [address] [place], [place] [phone] Carlota Jin MD 1 [facility], [facility] [place] [phone] 01/19/2025 6:45 EDT Treatment [facility] - [place] [address] [place] [address] Cralota Jin MD 1 [facility], [facility] [place] [phone] 01/22/2025 6:45 EDT Treatment [facility] - [place] [address] [place], [place] [phone] Carlota Jin MD 1 [facility], [facility] [place] [phone] 01/24/2025 6:45 EDT Treatment [facility] - [place] [address] [place], [place] [phone] Carlota Jin MD 1 [facility], [facility] [place] [phone] 01/26/2025 6:45 EDT Treatment [facility] - [place] [address] [place], [place] [id number] Carlota Jin MD 1 [facility], [facility] [place] [phone] 01/29/2025 6:45 EDT Treatment [facility] - [place] [address] [place], [place] [phone] Carlota Jin MD 1 [facility], [facility] [place] [phone] 01/31/2025 6:45 EDT Treatment [facility] - [place] [address] [place], [place] [phone] Carlota Jin MD 1 [facility], [facility] [place] [phone] 02/02/2025 6:45 EDT Treatment [facility] - [place] [address] [place], [place] [id number] Carlota Jin MD 1 [facility], [facility] [place] [phone] 02/05/2025 6:45 EDT Treatment [facility] - [place] [address] [place], [place] [phone] Carlota Jin MD 1 [facility], [facility] [place] [phone] 02/07/2025 6:45 EDT Treatment [facility] - [place] [address] [place], [place] [phone] Carlota Jin MD 1 [facility], [facility] [place] [phone] 02/09/2025 6:45 EDT Treatment [facility] - [place] [address] [place] [id number] [address] MD 1 [facility], [facility] [place] [phone] 02/12/2025 6:45 EDT Treatment [facility] - [place] [address] [place], [place] [phone] Carlota Jin MD 1 [facility], [facility] [place] [phone] 02/14/2025 6:45 EDT Treatment [facility] - [place] [address] [place], [place] [phone] Carlota Jin MD 1 [facility], [facility] [place] [phone] 02/16/2025 6:45 EDT Treatment [facility] - [place] [address] [place], [place] [phone] Carlota Jin MD 1 [facility], [facility] [place] [phone] 02/19/2025 6:45 EDT Treatment [facility] [place] [address] [place], [place] [phone] Carlota Jin MD 1 [facility], [facility] [place] [phone] 02/21/2025 6:45 EDT Treatment [facility] [place] [address] [place], [place] [phone] Carlota Jin MD 1 [facility], [address] [place] [address] documented as of this encounter Procedures Procedure Name Priority Date/Time Associated Diagnosis Comments COMPLETE BLOOD COUNT Routine 05/12/2023 8:16 EDT ESRD (end stage renal disease) ([facility]) HEMODIALYSIS Routine 05/12/2023 8:12 EDT ESRD (end stage renal disease) ([facility]) documented in this encounter Results * (ABNORMAL) COMPLETE BLOOD COUNT (05/12/2023 8:16 EDT) WBC 8.76 4.00 - 10.40 K/cmm 05/12/2023 21:56 [facility] RBC 3.15(L) 4.36 - 5.78 M/cmm 05/12/2023 21:56 [facility] Hemoglobin 9.8(L) 13.8 - 17.3 g/dL 05/12/2023 21:56 [facility] HCT 30.1(L) 39.5 - 50.2 % 05/12/2023 21:56 [facility] MCV 96(H) 81 - 95 fL 05/12/2023 21:56 [facility] MCH 31.1 27.6 - 33.0 pg 05/12/2023 21:56 [facility] MCHC 32.6(L) 32.8 - 36.4 g/dL 05/12/2023 21:56 [facility] RDW-CV 12.3 <14.2 % 05/12/2023 21:56 [facility] RDW-SD 42.3 <46.0 fl 05/12/2023 21:56 EDT [facility] PLT 248 141 - 377 K/cmm 05/12/2023 21:56 EDT [facility] MPV 12.1 9.5 - 12.7 fL 05/12/2023 21:56 EDT [facility] Blood VENOUS BLOOD / Unknown Venipuncture / Unknown 05/12/2023 8:16 EDT 05/12/2023 8:16 EDT us Carlota Jin MD HEMATOLOGY & PF4 ORDERABL ES Final Result [facility] [address] [place] [address] documented in this encounter Visit Diagnoses Diagnosis ESRD (end stage renal disease) ([facility])- Primary End stage renal disease Anemia of chronic renal failure, unspecified CKD stage Hypoalbuminemia Other disorders of plasma protein metabolism Secondary hyperparathyroidism ([facility]) Secondary hyperparathyroidism (of renal origin) documented in this encounter Administered Medications Inactive Administered Medications - up to 3 most recent administrations Medication Order MAR Action Action Date Dose Rate Site calcium carbonate (TUMS) tablet 500 mg (200 mg elemental calcium) 2 Tablet 2 Tablet, oral, ONCE IN DIALYSIS, 1 dose, On Wed05/12/23 at 0830, Routine, DialysisIndications:ESRD (end stage renal disease) ([facility]),Secondary hyperparathyroidism ([facility]) Given 05/12/2023 8:35 EDT 2 Tablets epoetin ken (EPOGEN) 20,000 unit/2 mL injection 500 Units 500 Units, intravenous, ONCE IN DIALYSIS, 1 dose, On Wed05/12/23 at 0830, Routine, DialysisIndications:ESRD (end stage renal disease) ([facility]),Anemia of chronic renal failure, unspecified CKD stage Given 05/12/2023 8:35 EDT 500 Units heparin injection 9,000 Units 9,000 Units, intravenous, ONCE IN DIALYSIS, 1 dose, On Wed05/12/23 at 0830, Routine, Dialysis, Now x1 bolus 4500 units to be given at the beginning of dialysis 1500 units/hour to be given over the course of dialysis (9000 units total). Stop 1 hour prior to end of treatment. To be administered per Policy [id number].Indications:ESRD (end stage renal disease) ([facility]) Given 05/12/2023 8:29 EDT 9,000 Units LiquaCel liquid protein liquid 30 mL 30 mL, oral, ONCE IN DIALYSIS, 1 dose, On Wed05/12/23 at 0830, RoutineIndications:Hypoalbuminemi a,ESRD (end stage renal disease) ([facility]) Given 05/12/2023 8:35 EDT 30 mL documented in this encounter Orders Dialysis Count Last Ordered Date First Orde red Date HEMODIALYSIS 1 05/12/2023 documented in this encounter Care Teams Slab Worker Relationship Specialty Start Date End Date Adeola Villegas APRN [address] [place] [address] PCP - General 10/12/16 07/06/23 documented as of this encounter
--- OUTSIDE RECORDS SUMMARY | 2024-12-05 12:23 | XMS_ITS | Encounter Summary ---
Author Organization [facility] Address [address] [place] [address] Care Team Providers Care Senior Wind Energy Consultant Name Role Phone Adeola Villegas MONA Primary Care Provider [phone] Encounter Details Date Type Department Care Team (Late st Contact Info) Description 05/03/2023 Documentation Visit [facility] [address] [place], [place] [id number] Priya Quijano RD Social History Tobacco Use Types Packs/Day Years Used Date Smoking Tobacco: Every Day Cigarettes Smokeless Tobacco: Never PHQ-2 Answer Date Recorded PHQ-2 SUBTOTAL 1 01/27/2023 Sex and Gender Information Value Date Recorded Sex Assigned at Not on file Legal Sex Male 18:49 EST Gender Identity Male 07/07/2023 14:11 EDT Sexual Orientation Not on file documented as of this encounter Progress Notes * Priya Quijano RD - 05/03/2023 1148 EDT Dialysis Dietitian's Monthly Assessment Met with patient on 05/03/23 Family/caregivers or others present: lives with his Information obtained from: patient Recent Hospitalizations: none Subjective: Xander reports doing well. His brother helps with cooking sometimes. Reports sometimes forgetting to take his phos binders with dinner. Doesn't always take with snacks. Reports he is having meat and fish as his protein sources. Appetite: Good I can eat like a horse Appetite scale (0-10): No number given Gastrointestinal: No issues identified Skin integrity: Intact Diabetes: Yes does not check on bld sugars Diabetes Management: Self Monitoring of Blood Glucose on insulin but does not check Diet Recall: B eggs ziegler L none D corn chowder Fluid: Water, Coffee, Milk, Juice Alcohol: will need to f/u Prescribed Weight: 88 kg Post-Dialytic Weight: 87.7 kg - 04/21/2023 04/23/2023 04/26/2023 04/28/2023 04/30/2023 ( Kg ) 87.3 87.1 87.8 87.7 87.7 UFR: - 04/21/2023 04/23/2023 04/26/2023 04/28/2023 04/30/2023 mL/Kg/hr 9.37 3 9.6 7.41 7.1 URR: 71.233 (Calculated from:; BUN Pre-Dialysis: 73 mg/dL at 04/26/2023 12:13; BUN Post-Dialysis: 21 mg/dL at 04/26/2023 12:13) Kt/V: 1.48 (Calculated from:; BUN Pre-Dialysis: 73 mg/dL at 04/26/2023 12:13; BUN Post-Dialysis: 21 mg/dL at 04/26/2023 12:13; Pre-Treatment Weight (kg): 91.2 at 04/26/2023 7:07; Post-Treatment Weight (kg): 87.8 at 04/26/2023 11:19; Duration of Treatment (minutes): 242 minutes at 04/26/2023 11:19) PCR: 1.3 (Calculated from:; BUN Pre-Dialysis: 73 mg/dL at 04/26/2023 12:13; BUN Post-Dialysis: 21 mg/dL at 04/26/2023 12:13; Pre-Treatment Weight (kg): 91.2 at 04/26/2023 7:07; Post-Treatment Weight (kg): 87.8 at 04/26/2023 11:19; Duration of Treatment (minutes): 242 minutes at 04/26/2023 11:19; Age: 57 years) Pertinent Labs include: Lab Results Component Value Date LABALBU 3.3 (L) 04/26/2023 LABALBU 3.3 (L) 03/29/2023 Lab Results Component Value Date BUNPRE 73 (H) 04/26/2023 BUNPRE 73 (H) 04/26/2023 NA 137 04/26/2023 NA 138 03/29/2023 K 5.6 (H) 04/26/2023 K 5.2 (H) 03/29/2023 CL 100 04/26/2023 CL 97 03/29/2023 CO2 23 04/26/2023 CO2 26 03/29/2023 MG 2.4 04/26/2023 MG 2.5 03/29/2023 CALCIUM 8.9 04/26/2023 CALCIUM 8.4 (L) 03/29/2023 CALCCA 9.5 04/26/2023 CALCCA 9.0 03/29/2023 PHOS 7.2 (H) 04/26/2023 PHOS 8.1 (H) 03/29/2023 ALKPHOS 88 04/26/2023 ALKPHOS 92 03/29/2023 PTH 369 (H) 04/26/2023 PTH 239 (H) 01/25/2023 PLT 227 04/28/2023 PLT 237 04/21/2023 MCV 96 (H) 04/28/2023 MCV 96 (H) 04/21/2023 [id number] 11/16/2022 VITD 27 (L) 11/16/2022 FOLATE 17.3 11/16/2022 Protein/calorie supplements: Liquacel q HD Using protein powder at home (orgain) Renal/other vitamins: cholecalciferol (Vitamin D3) - 2000 IU daily MULTIVITAMIN ORAL Herbal/OTC supplements: None reported CKD/MBD medications: sevelamer hydrochloride - 2 with meals - forgets with dinner Recmd to add tums with snacks and [...] servings daily but albumin remains low - continue liquacel since he is not consistent with nepro and have encouraged use of protein powder at home. His wt has ranged from 86-88 kg since starting HD and his currentBMI is at 28. He is well nourished in appearance and fairly high-functioning Weight/Volume status: fluid gains 0.9-4.5 kg. UFR 3-10 Electrolytes: Na and Mg WNL. K+ slightly high this morning, pt unsure why. Will monitor trend and encourage limiting high K+ foods. Mineral Bone Disease: Ca WNL Phos high though improved this month - encouraged to time binders with meals, revd high phos foods to limit - phos education sheet provided, on 2 tums at HD. Provided strategies for remembering to take binders with dinner. PTH within goal - no calcitriol Vitamin Status: B12 and folate WNL - will need to f/u on him getting started on renal vitamin- currently on MV D25 level low -on 2000 IU D3 Diabetes management: on insulin but not checking regularly Education Materials provided: Nutrition Lab Report-given monthly Potassium education- given again on 03/10 Phosphorus education- given again on 03/10 and 05/03 Milk alternatives and low phos cheese list given 04/07 Assessment of Understanding: needs reinforcement Medical Nutrition Therapy Plan and Recommendation 1. Revd high phos and potassium foods to limit 2. Encourage consistency with phos binders 3. Continue liquacel and protein powder at home to improve albumin 4. Will need to change to renal vitamin 5. Continue Vitamin D3 supplement Priya Quijano RD, CD documented in this encounter Plan of Treatment Upcoming Encounters Date Type Department Care Team (Late st Contact Info) Description 12/06/2024 6:45 EST Treatment [facility] [place] [facility] [address] [place], [place] [address] Carlota Jin MD [address] [place] [address], [address] [place] [phone] 12/08/2024 6:45 EST Treatment [facility] [place] [address] [place], [place] [id number] Carlota Jin MD [facility] [address] [place] [phone] 12/11/2024 6:45 EST Treatment [facility] [place] [address] [place], [place] [id number] Carlota Jin MD 1 [facility], [facility] 2 [place] [phone] 12/13/2024 6:45 EST Treatment [facility] [place] [address] [place], [place] [id number] Carlota Jin MD [address] [facility], [facility] 2 [place] [phone] 12/15/2024 6:45 EST Treatment [facility] [place] [address] [place], [place] [id number] Carlota Jin MD [address] [facility], [facility] 2 [place] [phone] 12/18/2024 6:45 EST Treatment [facility] [place] [address] [place], [place] [id number] Carlota Jin MD [address] [facility], [facility] 2 [place] [phone] 12/20/2024 6:45 EST Treatment [facility] [place] [address] [place], [place] [id number] Carlota Jin MD [address] [facility], [facility] 2 [place] [phone] 12/22/2024 6:45 EST Treatment [facility] [place] [address] [place], [place] [id number] Carlota Jin MD 1 [facility] 2 [place] [phone] 12/25/2024 6:45 EST Treatment [facility] [place] [address] [place], [place] [address] Carlota Jin MD 1 [facility], [facility] 2 [place] [phone] 12/27/2024 6:45 EST Treatment [facility] [place] [address] [place], [place] [id number] Carlota Jin MD [address] [facility], [facility] 2 [place] [phone] 12/29/2024 6:45 EST Treatment [facility] [place] [address] [place], [place] [id number] Carlota iJn MD 1 [facility], [facility] 2 [place] [phone] 01/01/2025 6:45 EDT Treatment [facility] [place] [address] [place] [address] Carlota Jin MD 1 [facility], [facility] 2 [place] [phone] 01/03/2025 6:45 EDT Treatment [facility] [address] [place], [place] [id number] Carlota Jin MD 1 [facility], [facility] 2 [place] [phone] 01/05/2025 6:45 EDT Treatment [facility] [place] [address] [place], [place] [id number] Carlota Jin MD [address] [facility], [facility] 2 [place] [phone] 01/08/2025 6:45 EDT Treatment [facility] [place] [address] [place], [place] [id number] Carlota Jin MD [address] [place] [address], [address] [phone] 01/10/2025 6:45 EDT Treatment [facility] [place] [address] [place], [place] [id number] Carlota Jin MD [address] [place] [address], [address] [phone] 01/12/2025 6:45 EDT Treatment [facility] [place] [address] [place], [place] [id number] Carlota Jin MD [address] [place] [address], [facility] 2 [place] [phone] 01/15/2025 6:45 EDT Treatment [facility] [place] [address] [place], [place] [id number] Carlota Jin MD [address] [place] [address], [facility] 2 [place] [phone] 01/17/2025 6:45 EDT Treatment [facility] [place] [address] [place], [place] [id number] Carlota Jin MD 1 [facility], [facility] 2 [place] [phone] 01/19/2025 6:45 EDT Treatment [facility] [place] [address] [place], [place] [address] Carlota Jin MD 1 [facility], [facility] 2 [place] [phone] 01/22/2025 6:45 EDT Treatment [facility] [place] [address] [place], [place] [id number] Carlota Jin MD 1 [facility], [facility] 2 [place] [phone] 01/24/2025 6:45 EDT Treatment [facility] [place] [address] [place], [place] [id number] Carlota Jin MD [address] [facility], [facility] 2 [place] [phone] 01/26/2025 6:45 EDT Treatment [facility] [address] [place], [place] [id number] Carlota Jin MD 1 [facility], [facility] 2 [place] [phone] 01/29/2025 6:45 EDT Treatment [facility] [place] [address] [place], [place] [id number] Carlota Jin MD 1 [facility], [facility] 2 [place] [phone] 01/31/2025 6:45 EDT Treatment [facility] [place] [address] [place], [place] [id number] Carlota Jin MD 1 [facility], [facility] 2 [place] [phone] 02/02/2025 6:45 EDT Treatment [facility] [place] [address] [place], [place] [id number] Carlota Jin MD [address] [facility], [facility] 2 [place] [phone] 02/05/2025 6:45 EDT Treatment [facility] [place] [address] [place], [place] [id number] Carlota Jin MD 1 [facility], [address] [phone] 02/07/2025 6:45 EDT Treatment [facility] [place] [address] [place] [address] Carlota Jin MD 1 [facility], [facility] 2 [place] [phone] 02/09/2025 6:45 EDT Treatment [facility] [place] [address] [place], [place] [id number] Carlota Jin MD [address] [facility], [facility] 2 [place] [phone] 02/12/2025 6:45 EDT Treatment [facility] [place] [address] [place], [place] [id number] Carlota Jin MD 1 [facility], [address] [phone] 02/14/2025 6:45 EDT Treatment [facility] [place] [address] [place], [place] [id number] Carlota Jin MD [address] [place] [address], [address] [phone] 02/16/2025 6:45 EDT Treatment [facility] [address] [place], [place] [id number] Carlota Jin MD [address] [place] [phone] 02/19/2025 6:45 EDT Treatment [facility] [address] [place], [place] [id number] Carlota Jin MD [address] [place] [address], [address] [phone] 02/21/2025 6:45 EDT Treatment [facility] [address] [place], [place] [id number] Carlota Jin MD [address] [place] [address], [address] [phone] documented as of this encounter Visit Diagnoses Not on filedocumented in this encounter Care Teams Senior Wind Energy Consultant Relationship Specialty Start Date End Date Adeola Villegas APRN Mohit [address] [facility] 1 [place], [place] [address] PCP - General 10/12/16 07/06/23 documented as of this encounter
--- OUTSIDE RECORDS SUMMARY | 2024-12-05 12:23 | XMS_ITS | Encounter Summary ---
Author Organization [facility] Address [address] [place] [address] Care Team Providers Care Juvenile Justice Specialist Name Role Phone Adeola Villegas APRN Primary Care Provider [phone] Encounter Details Date Type Department Care Team (Late st Contact Info) Description 05/21/2023 Documentation Visit [facility] [address] [place], [place] [phone] Melissa Crespo, RN Social History Tobacco Use [...] 12/06/2024 6:45 EST Treatment [facility] [address] [place] [address] Carlota Jin MD 1 [facility], [address] [place] [phone] 12/08/2024 6:45 EST Treatment [facility] [address] [place] [id number] Carlota Jin MD 1 [facility], [facility] 2 [place] [phone] 12/11/2024 6:45 EST Treatment [facility] [place] [address] [place], [place] [address] Carlota Jin MD 1 [facility], [facility] 2 [place] [phone] 12/13/2024 6:45 EST Treatment [facility] [place] [address] [place], [place] [id number] Carlota Jin MD 1 [facility], [facility] 2 [place] [phone] 12/15/2024 6:45 EST Treatment [facility] [place] [address] [place], [place] [id number] Carlota Jin MD 1 [facility], [facility] 2 [place] [phone] 12/18/2024 6:45 EST Treatment [facility] [address] [place] [address] Carlota Jin MD 1 [facility], [facility] 2 [place] [phone] 12/20/2024 6:45 EST Treatment [facility] [place] [address] [place], [place] [id number] Carlota Jin MD 1 [facility], [facility] 2 [place] [phone] 12/22/2024 6:45 EST Treatment [facility] [place] [address] [place], [place] [id number] Carlota Jin MD 1 [facility], [facility] 2 [place] [phone] 12/25/2024 6:45 EST Treatment [facility] [place] [address] [place], [place] [id number] Carlota Jin MD 1 [facility], [facility] 2 [place] [phone] 12/27/2024 6:45 EST Treatment [facility] [place] [address] [place], [place] [id number] Carlota Jin MD 1 [facility], [facility] 2 [place] [phone] 12/29/2024 6:45 EST Treatment [facility] [place] [address] [place], [place] [phone] Carlota Jin MD 1 [facility], [facility] 2 [place] [phone] 01/01/2025 6:45 EDT Treatment [facility] [place] [address] [place], [place] [id number] Carlota Jin MD 1 [facility], [facility] 2 [place] [phone] 01/03/2025 6:45 EDT Treatment [facility] [place] [address] [place], [place] [phone] Carlota Jin MD 1 [facility], [address] [place] [phone] 01/05/2025 6:45 EDT Treatment [facility] [place] [address] [place], [place] [address] Carlota Jin MD 1 [facility], [facility] 2 [place] [phone] 01/08/2025 6:45 EDT Treatment [facility] [place] [address] [place], [place] [id number] Carlota Jin MD 1 [facility], [facility] 2 [place] [phone] 01/10/2025 6:45 EDT Treatment [facility] [place] [address] [place] [address] Carlota Jin MD 1 [facility], [facility] 2 [place] [phone] 01/12/2025 6:45 EDT [facility] [address] [place] [address] Carlota Jin MD 1 [facility], [facility] 2 [place] [phone] 01/15/2025 6:45 EDT Treatment [facility] [address] [place], [place] [id number] Carlota Jin MD 1 [facility], [facility] 2 [place] [phone] 01/17/2025 6:45 EDT Treatment [facility] [place] [address] [place], [place] [id number] Carlota Jin MD 1 [facility], [facility] 2 [place] [phone] 01/19/2025 6:45 EDT Treatment [facility] [place] [address] [place], [place] [id number] Carlota Jin MD 1 [facility], [facility] 2 [place] [phone] 01/22/2025 6:45 EDT Treatment [facility] [place] [address] [place], [place] [id number] Carlota Jin MD [address] [place] [address], [facility] 2 [place] [phone] 01/24/2025 6:45 EDT Treatment [facility] [place] [address] [place], [place] [id number] Carlota Jin MD 1 [facility], [facility] 2 [place] [phone] 01/26/2025 6:45 EDT Treatment [facility] [place] [address] [place], [place] [id number] Carlota Jin MD 1 [facility], [facility] 2 [place] [phone] 01/29/2025 6:45 EDT Treatment [facility] [place] [address] [place], [place] [id number] Carlota Jin MD 1 [facility], [facility] 2 [place] [phone] 01/31/2025 6:45 EDT Treatment [facility] [place] [address] [place], [place] [id number] Carlota Jin MD 1 [facility], [facility] 2 [place] [phone] 02/02/2025 6:45 EDT Treatment [facility] [place] [address] [place], [place] [id number] Carlota Jin MD 1 [facility], [address] [phone] 02/05/2025 6:45 EDT Treatment [facility] [place] [address] [place], [place] [id number] Carlota Jin MD 1 [facility], [address] [phone] 02/07/2025 6:45 EDT Treatment [facility] [place] [address] [place], [place] [id number] Carlota Jin MD 1 [facility], [facility] 2 [place] [phone] 02/09/2025 6:45 EDT Treatment [facility] [place] [address] [place], [place] [id number] Carlota Jin MD 1 [facility], [facility] 2 [place] [phone] 02/12/2025 6:45 EDT Treatment [facility] [place] [address] [place], [place] [id number] Carlota Jin MD [address] [phone] 02/14/2025 6:45 EDT Treatment [facility] [place] [address] [place], [place] [id number] Carlota Jin MD [address] [place] [phone] 02/16/2025 6:45 EDT Treatment [facility] [place] [address] [place], [place] [id number] Carlota Jin MD [address] [place] [phone] 02/19/2025 6:45 EDT Treatment [facility] [place] [address] [place], [place] [id number] Carlota Jin MD [address] [place] [phone] 02/21/2025 6:45 EDT Treatment [facility] [place] [address] [place], [place] [phone] Carlota Jin MD [address] [place] [phone] documented as of this encounter Visit Diagnoses Not on filedocumented in this encounter Care Teams Juvenile Justice Specialist Relationship Specialty Start Date End Date Villegas, [employer], RADIOLOGY DIRECTOR Mohit [address] [place] [address] PCP - General 10/12/16 07/06/23 documented as of this encounter
--- OUTSIDE RECORDS SUMMARY | 2024-12-05 12:23 | XMS_ITS | Encounter Summary ---
Author Organization [facility] Address [address] [place] [address] Care Team Providers Care Powder Compounder Name Role Phone Adeola Vlilegas APRN Primary Care Provider [phone] Encounter Details Date Type Department Care Team (Latest Contact Info) Description 05/17/2023 8:30 EDT Treatment [facility] [address] [place] [address] Carlota Jin MD 1 [facility], Level [address] [place] [address] ESRD (end stage renal disease) ([facility]) (Primary Dx); Anemia of chronic renal failure, unspecified CKD stage; Hypoalbuminemia; Secondary hyperparathyroidism ([facility]) Social History Tobacco Use Types [...] - Temperature - - Respiratory Rate 18 05/17/2023 0805 EDT Oxygen Saturation - - Inhaled Oxygen Concentration - - Weight - - Height - - Body Mass Index - - documented in this encounter Miscellaneous Notes * Flowsheet Note - Teto Ribeiro RN - 05/17/2023 1512 EDT 05/17/23 1225 Post-Hemodialysis Assessment Total Blood Processed (L) 88.99 Liters On Line Clearance: spKt/V 1.42 spKt/V Dialyzer Clearance Lightly streaked Treatment UFR (ml:kg:hr) 4.55 ml:kg:hr Critline refill Not done Fluid Removed (L) 2.7 L Post-Dialysis Scale Weight 88 kg (194 lb 0.1 oz) Wheelchair Weight 0 kg (0 lb) Prosthesis Weight 0 kg (0 lb) Post-Treatment Weight (kg) 88 Treatment Weight Change (kg) 1.6 kg Day Target Weight (kg) 87.4 Post Sitting/Lying BP 163/84 Post Sitting/Lying pulse 64 Post Standing BP 143/71 Post Standing Pulse 66 Temp 36.4 ??C (97.5 ??F) Temp src Temporal Post access assessment AVF/AFG Hemostasis achieved Yes Orientation Alert and Oriented x3 Yes Time Yes Place Yes Person Yes Cooperative Yes Disoriented No Discharge Ambulation Methods Ambulatory with assistive device Ambulation device Walker Wrap up items Patient Response to Treatment Pt sheldon. tx well, removed 2.7L Comments No complaints, no s/s of distress noted, VSS upon d/c documented in this encounter Plan of Treatment Upcoming Encounters Date Type Department Care Team (Late st Contact Info) Description 12/06/2024 6:45 EST Treatment [facility] [address] [place], [place] [id number] Carlota Jin MD 1 [facility], [facility] [address] [place] [address] 12/08/2024 6:45 EST Treatment [facility] [address] [place] [id number] Carlota Jin MD 1 [facility], [facility] 2 [place] [address] 12/11/2024 6:45 EST Treatment [facility] [place] [address] [place], [place] [id number] Carlota Jin MD 1 [facility], [facility] 2 [place] [phone] 12/13/2024 6:45 EST Treatment [facility] [place] [address] [place], [place] [id number] Carlota Jin MD 1 [facility], [facility] 2 [place] [phone] 12/15/2024 6:45 EST Treatment [facility] [place] [address] [place], [place] [address] Carlota Jin MD 1 [facility], [facility] 2 [place] [phone] 12/18/2024 6:45 EST Treatment [facility] [place] [address] [place] [address] Carlota Jin MD 1 [facility], [facility] 2 [place] [phone] 12/20/2024 6:45 EST Treatment [facility] [place] [address] [place], [place] [id number] Carlota Jin MD 1 [facility], [facility] 2 [place] [phone] 12/22/2024 6:45 EST Treatment [facility] [place] [address] [place], [place] [id number] Carlota Jin MD 1 [facility], [facility] 2 [place] [phone] 12/25/2024 6:45 EST Treatment [facility] [place] [address] [place], [place] [id number] Carlota Jin MD 1 [facility], [facility] 2 [place] [phone] 12/27/2024 6:45 EST Treatment [facility] [place] [address] [place], [place] [id number] Carlota Jin MD 1 [facility], [facility] 2 [place] [phone] 12/29/2024 6:45 EST Treatment [facility] [place] [address] [place], [place] [id number] Carlota Jin MD 1 [facility], [facility] 2 [place] [phone] 01/01/2025 6:45 EDT Treatment [facility] [place] [address] [place] [address] Carlota Jin MD 1 [facility], [facility] 2 [place] [phone] 01/03/2025 6:45 EDT Treatment [facility] [place] [address] [place], [place] [id number] Carlota Jin MD 1 [facility], [facility] 2 [place] [phone] 01/05/2025 6:45 EDT Treatment [facility] [place] [address] [place], [place] [id number] Carlota Jin MD 1 [facility], [facility] 2 [place] [phone] 01/08/2025 6:45 EDT Treatment [facility] [place] [address] [place], [place] [id number] Carlota Jin MD 1 [facility], [facility] 2 [place] [phone] 01/10/2025 6:45 EDT Treatment [facility] [address] [place], [place] [id number] Carlota Jin MD [address] [place] [address], [facility] 2 [place] [phone] 01/12/2025 6:45 EDT Treatment [facility] [address] [place], [place] [phone] Carlota Jin MD [address] [place] [address], [facility] 2 [place] [phone] 01/15/2025 6:45 EDT Treatment [facility] [address] [place], [place] [phone] Carlota Jin MD 1 [facility], [facility] 2 [place] [phone] 01/17/2025 6:45 EDT Treatment [facility] [place] [address] [place], [place] [phone] Carlota Jin MD 1 [facility], [facility] 2 [place] [phone] 01/19/2025 6:45 EDT Treatment [facility] [place] [address] [place], [place] [id number] Carlota Jin MD 1 [facility], [address] [phone] 01/22/2025 6:45 EDT Treatment [facility] [place] [address] [place], [place] [id number] Carlota Jin MD 1 [facility], [address] [phone] 01/24/2025 6:45 EDT Treatment [facility] [place] [address] [place], [place] [id number] Carlota Jin MD [address] [phone] 01/26/2025 6:45 EDT Treatment [facility] [place] [address] [place], [place] [id number] Carlota Jin MD [address] [phone] 01/29/2025 6:45 EDT Treatment [facility] [place] [address] [place], [place] [id number] Carlota Jin MD 1 [facility], [facility] 2 [place] [phone] 01/31/2025 6:45 EDT Treatment [facility] [place] [address] [place], [place] [id number] Carlota Jin MD 1 [facility], [facility] 2 [place] [phone] 02/02/2025 6:45 EDT Treatment [facility] [place] [address] [place], [place] [id number] Carlota Jin MD 1 [facility], [facility] 2 [place] [phone] 02/05/2025 6:45 EDT Treatment [facility] [place] [address] [place], [place] [id number] Carlota Jin MD 1 [facility], [facility] 2 [place] [phone] 02/07/2025 6:45 EDT Treatment [facility] [place] [address] [place] [address] Carlota Jin MD 1 [facility], [facility] 2 [place] [phone] 02/09/2025 6:45 EDT Treatment [facility] [place] [address] [place], [place] [id number] Carlota Jin MD 1 [facility], [facility] 2 [place] [phone] 02/12/2025 6:45 EDT Treatment [facility] [place] [address] [place], [place] [id number] Carlota Jin MD [address] [phone] 02/14/2025 6:45 EDT Treatment [facility] [place] [address] [place], [place] [id number] Carlota Jin MD [address] [place] [phone] 02/16/2025 6:45 EDT Treatment [facility] [place] [address] [place], [place] [id number] Carlota Jin MD [address] [place] [phone] 02/19/2025 6:45 EDT Treatment [facility] [place] [address] [place], [place] [id number] Carlota Jin MD [address] [place] [phone] 02/21/2025 6:45 EDT Treatment [facility] [place] [address] [place], [place] [phone] Carlota Jin MD [address] [place] [phone] documented as of this encounter Procedures Procedure Name Priority Date/Time Associated Diagnosis Comments HEMODIALYSIS Routine 05/17/2023 8:05 EDT ESRD (end stage renal disease) ([facility]) documented in this encounter Visit Diagnoses Diagnosis ESRD (end stage renal disease) ([facility])- Primary End stage renal disease Anemia of chronic renal failure, unspecified CKD stage Hypoalbuminemia Other disorders of plasma protein metabolism Secondary hyperparathyroidism ([facility]) Secondary hyperparathyroidism (of renal origin) documented in this encounter Administered Medications Inactive Administered Medications - up to 3 most recent administrations Medication Order MAR Action Action Date Dose Rate Site calcium carbonate (TUMS) tablet 500 mg (200 mg elemental calcium) 2 Tablet 2 Tablet, oral, ONCE IN DIALYSIS, 1 dose, On Wed05/17/23 at 0830, Routine, DialysisIndications:ESRD (end stage renal disease) ([facility]),Secondary hyperparathyroidism ([facility]) Given 05/17/2023 8:43 EDT 2 Tablets epoetin ken (EPOGEN) 20,000 unit/2 mL injection 500 Units 500 Units, intravenous, ONCE IN DIALYSIS, 1 dose, On Wed05/17/23 at 0830, Routine, DialysisIndications:ESRD (end stage renal disease) ([facility]),Anemia of chronic renal failure, unspecified CKD stage Given 05/17/2023 8:43 EDT 500 Units heparin injection 9,000 Units 9,000 Units, intravenous, ONCE IN DIALYSIS, 1 dose, On Wed05/17/23 at 0830, Routine, Dialysis, Now x1 bolus 4500 units to be given at the beginning of dialysis 1500 units/hour to be given over the course of dialysis (9000 units total). Stop 1 hour prior to end of treatment. To be administered per Policy [id number].Indications:ESRD (end stage renal disease) ([facility]) Given 05/17/2023 8:25 EDT 9,000 Units LiquaCel liquid protein liquid 30 mL 30 mL, oral, ONCE IN DIALYSIS, 1 dose, On Wed05/17/23 at 0830, RoutineIndications:Hypoalbuminemi a,ESRD (end stage renal disease) ([facility]) Given 05/17/2023 8:44 EDT 30 mL documented in this encounter Orders Dialysis Count Last Ordered Date First Orde red Date HEMODIALYSIS 1 05/17/2023 documented in this encounter Care Teams Powder Compounder Relationship Specialty Start Date End Date Adeola Villegas APRN [address] [place] [address] PCP - General 10/12/16 07/06/23 documented as of this encounter
--- OUTSIDE RECORDS SUMMARY | 2024-12-05 12:23 | XMS_ITS | Encounter Summary ---
Author Organization [facility] Address [address] [place] [address] Care Team Providers Care Physician Chief Of Pathology Name Role Phone Adeola Villegas APRN Primary Care Provider [phone] Encounter Details Date Type Department Care Team (Late st Contact Info) Description 05/07/2023 Documentation [facility] [address] [place], [place] [phone] Melissa Crespo, RN Social History Tobacco Use [...] Info) Description 12/06/2024 6:45 EST Treatment [facility] [address] [place] [id number] Carlota Jin MD 1 [facility], [address] [place] [address] 12/08/2024 6:45 EST Treatment [facility] [address] [place] [id number] Carlota Jin MD 1 [facility], [facility] 2 [place] [phone] 12/11/2024 6:45 EST Treatment [facility] [place] [address] [place], [place] [address] Carlota Jin MD 1 [facility], [facility] 2 [place] [phone] 12/13/2024 6:45 EST Treatment [facility] [place] [address] [place], [place] [id number] Carlota Jin MD 1 [facility], [facility] 2 [place] [phone] 12/15/2024 6:45 EST Treatment [facility] [place] [address] [place], [place] [id number] Carlota Jin MD 1 [facility], [facility] 2 [place] [phone] 12/18/2024 6:45 EST Treatment [facility] [address] [place] [address] Carlota Jin MD 1 [facility], [facility] 2 [place] [phone] 12/20/2024 6:45 EST Treatment [facility] [place] [address] [place], [place] [phone] Carlota Jin MD 1 [facility], [facility] 2 [place] [phone] 12/22/2024 6:45 EST Treatment [facility] [place] [address] [place], [place] [id number] Carlota Jin MD 1 [facility], [facility] 2 [place] [phone] 12/25/2024 6:45 EST Treatment [facility] [place] [address] [place], [place] [id number] Carlota Jin MD 1 [facility], [facility] 2 [place] [phone] 12/27/2024 6:45 EST Treatment [facility] [place] [address] [place], [place] [id number] Carlota Jin MD 1 [facility], [facility] 2 [place] [phone] 12/29/2024 6:45 EST Treatment [facility] [place] [address] [place], [place] [id number] Carlota Jin MD 1 [facility], [facility] 2 [place] [phone] 01/01/2025 6:45 EDT Treatment [facility] [place] [address] [place], [place] [phone] Carlota Jin MD 1 [facility], [facility] 2 [place] [phone] 01/03/2025 6:45 EDT Treatment [facility] [place] [address] [place], [place] [id number] Carlota Jin MD 1 [facility], [address] [place] [phone] 01/05/2025 6:45 EDT Treatment [facility] [place] [address] [place], [place] [address] Carlota Jin MD 1 [facility], [facility] 2 [place] [phone] 01/08/2025 6:45 EDT Treatment [facility] [place] [address] [place], [place] [id number] Carlota Jin MD 1 [facility], [facility] 2 [place] [phone] 01/10/2025 6:45 EDT Treatment [facility] [place] [address] [place] [address] Carlota Jin MD 1 [facility], [facility] 2 [place] [phone] 01/12/2025 6:45 EDT Treatment [facility] [address] [place] [address] Carlota Jin MD 1 [facility], [facility] 2 [place] [phone] 01/15/2025 6:45 EDT Treatment [facility] [address] [place], [place] [id number] Carlota Jin MD 1 [facility], [facility] 2 [place] [phone] 01/17/2025 6:45 EDT Treatment [facility] [place] [address] [place], [place] [id number] Carlota Jin MD 1 [facility], [facility] 2 [place] [phone] 01/19/2025 6:45 EDT Treatment [facility] [place] [address] [place], [place] [phone] Carlota Jin MD 1 [facility], [facility] 2 [place] [phone] 01/22/2025 6:45 EDT Treatment [facility] [place] [address] [place], [place] [id number] Carlota Jin MD [address] [place] [address], [facility] 2 [place] [phone] 01/24/2025 6:45 EDT Treatment [facility] [place] [address] [place], [place] [id number] Carlota Jin MD 1 [facility], [facility] 2 [place] [phone] 01/26/2025 6:45 EDT Treatment [facility] [place] [address] [place], [place] [id number] Carlota Jin MD 1 [facility], [facility] 2 [place] [phone] 01/29/2025 6:45 EDT Treatment [facility] [place] [address] [place], [place] [id number] Carlota Jin MD 1 [facility], [facility] 2 [place] [phone] 01/31/2025 6:45 EDT Treatment [facility] [place] [address] [place], [place] [id number] Carlota Jin MD 1 [facility], [facility] 2 [place] [phone] 02/02/2025 6:45 EDT Treatment [facility] [place] [address] [place], [place] [id number] Carlota Jin MD 1 [facility], [address] [phone] 02/05/2025 6:45 EDT Treatment [facility] [place] [address] [place], [place] [id number] Carlota Jin MD 1 [facility], [address] [phone] 02/07/2025 6:45 EDT Treatment [facility] [place] [address] [place], [place] [id number] Carlota Jin MD 1 [facility], [facility] 2 [place] [phone] 02/09/2025 6:45 EDT Treatment [facility] [place] [address] [place], [place] [id number] Carlota Jin MD 1 [facility], [facility] 2 [place] [phone] 02/12/2025 6:45 EDT Treatment [facility] [place] [address] [place], [place] [id number] Carlota Jin MD [address] [phone] 02/14/2025 6:45 EDT Treatment [facility] [place] [address] [place], [place] [id number] Carlota Jin MD [address] [place] [phone] 02/16/2025 6:45 EDT Treatment [facility] [place] [address] [place], [place] [id number] Carlota Jin MD [address] [place] [phone] 02/19/2025 6:45 EDT Treatment [facility] [place] [address] [place], [place] [id number] Carlota Jin MD [address] [place] [phone] 02/21/2025 6:45 EDT Treatment [facility] [place] [address] [place], [place] [id number] Carlota Jin MD [address] [place] [phone] documented as of this encounter Visit Diagnoses Not on filedocumented in this encounter Care Teams Physician Chief Of Pathology Relationship Specialty Start Date End Date Villegas, Mayes, BUSINESS UNIT LEADER [address] [place] [address] PCP - General 10/12/16 07/06/23 documented as of this encounter
--- OUTSIDE RECORDS SUMMARY | 2024-12-05 12:23 | XMS_ITS | Encounter Summary ---
Author Organization [facility] Address [address] [place] [address] Care Team Providers Care Catering Service Manager Name Role Phone Adeola Villegas APRN Primary Care Provider [phone] Encounter Details Date Type Department Care Team (Latest Contact Info) Description 05/03/2023 7:15 EDT Treatment [facility] [address] [place] [address] Carlota Jin MD 1 [facility], [address] [place] [address] ESRD (end stage renal disease) ([facility]) (Primary Dx); Anemia of chronic renal failure, unspecified CKD stage; Hypoalbuminemia; Secondary hyperparathyroidism ([facility]) Social History Tobacco Use Types [...] - Temperature - - Respiratory Rate 18 05/03/2023 0653 EDT Oxygen Saturation - - Inhaled Oxygen Concentration - - Weight 90.4 kg (199 lb 4.7 oz) 05/03/2023 0653 E DT Height - - Body Mass Index 29.01 01/25/2023 0751 EDT documented in this encounter Miscellaneous Notes * Flowsheet Note - Melissa Crespo RN - 05/03/2023 1646 EDT 05/03/23 1211 Post-Hemodialysis Assessment Total Blood Processed (L) 83.34 Liters On Line Clearance: spKt/V 1.37 spKt/V Dialyzer Clearance Lightly streaked Treatment UFR (ml:kg:hr) 8.57 ml:kg:hr Final Critline Profile (%/hr) -3.41 Final Profile Profile B Critline refill Negative (34.6-34.5) Fluid Removed (L) 3.05 L Post-Dialysis Scale Weight 88.5 kg (195 lb 1.7 oz) Wheelchair Weight 0 kg (0 lb) Prosthesis Weight 1 kg (2 lb 3.3 oz) (per boots, per notes) Post-Treatment Weight (kg) 87.5 Treatment Weight Change (kg) 2.9 kg Day Target Weight (kg) 87.9 Post Sitting/Lying BP 157/87 Post Sitting/Lying pulse 63 Post Standing BP 140/73 Post Standing Pulse 64 Temp 36.4 ??C (97.5 ??F) Temp src Skin Post access assessment AVF/AFG Hemostasis achieved Yes Edema Assessment Edema? No Orientation Alert and Oriented x3 Yes Time [...] Description 12/06/2024 6:45 EST Treatment [facility] [address] [place] [phone] Carlota Jin MD 1 [facility], [address] [place] [phone] 12/08/2024 6:45 EST Treatment [facility] [address] [place], [place] [id number] Carlota Jin MD 1 [facility], [facility] [address] [place] [phone] 12/11/2024 6:45 EST Treatment [facility] [address] [place], [place] [id number] Carlota Jin MD 1 [facility], [facility] [address] [place] [phone] 12/13/2024 6:45 EST Treatment [facility] [address] [place], [place] [id number] Carlota Jin MD 1 [facility], [facility] [address] [place] [phone] 12/15/2024 6:45 EST Treatment [facility] [place] [address] [place], [place] [id number] Carlota Jin MD 1 [facility], [facility] [address] [place] [phone] 12/18/2024 6:45 EST Treatment [facility] [address] [place], [place] [id number] Carlota Jin MD 1 [facility], [facility] [address] [place] [phone] 12/20/2024 6:45 EST Treatment [facility] [address] [place], [place] [id number] Carlota Jin MD 1 [facility], [facility] [address] [place] [phone] 12/22/2024 6:45 EST Treatment [facility] [address] [place], [place] [id number] Carlota Jin MD 1 [facility], [facility] [address] [place] [phone] 12/25/2024 6:45 EST Treatment [facility] [address] [place], [place] [id number] Carlota Jin MD 1 [facility], [facility] [address] [place] [phone] 12/27/2024 6:45 EST Treatment [facility] [address] [place], [place] [id number] Carlota Jin MD 1 [facility], [address] [phone] 12/29/2024 6:45 EST Treatment [facility] [address] [place] [phone] Carlota Jin MD 1 [facility], [facility] [address] [place] [phone] 01/01/2025 6:45 EDT Treatment [facility] [address] [place], [place] [id number] Carlota Jin MD 1 [facility], [facility] [address] [place] [phone] 01/03/2025 6:45 EDT Treatment [facility] [address] [place], [place] [id number] Carlota Jin MD 1 [facility], [address] [phone] 01/05/2025 6:45 EDT Treatment [facility] [address] [place], [place] [id number] Carlota Jin MD 1 [facility], [address] [phone] 01/08/2025 6:45 EDT Treatment [facility] [address] [place], [place] [id number] Carlota Jin MD 1 [facility], [address] [phone] 01/10/2025 6:45 EDT Treatment [facility] [address] [place], [place] [id number] Carlota Jin MD 1 [facility], [address] [phone] 01/12/2025 6:45 EDT Treatment [facility] [place] [address] [place], [place] [id number] Carlota Jin MD [address] [place] [address], [address] [phone] 01/15/2025 6:45 EDT Treatment [facility] [place] [address] [place], [place] [id number] Carlota Jin MD 1 [facility], [address] [place] [phone] 01/17/2025 6:45 EDT Treatment [facility] [address] [place], [place] [id number] Carlota Jin MD 1 [facility], [facility] [address] [place] [phone] 01/19/2025 6:45 EDT Treatment [facility] [address] [place], [place] [id number] Carlota Jin MD 1 [facility], [facility] [address] [place] [phone] 01/22/2025 6:45 EDT Treatment [facility] [address] [place], [place] [id number] Carlota Jin MD 1 [facility], [facility] [address] [place] [phone] 01/24/2025 6:45 EDT [facility] [address] [place], [place] [id number] Carlota Jin MD 1 [facility], [facility] [address] [place] [phone] 01/26/2025 6:45 EDT Treatment [facility] [address] [place], [place] [id number] Carlota Jin MD 1 [facility], [facility] [address] [place] [phone] 01/29/2025 6:45 EDT Treatment [facility] [address] [place], [place] [id number] Carlota Jin MD 1 [facility], [facility] [address] [place] [phone] 01/31/2025 6:45 EDT Treatment [facility] [place] [address] [place], [place] [id number] Carlota Jin MD 1 [facility], [facility] [address] [place] [phone] 02/02/2025 6:45 EDT Treatment [facility] [address] [place], [place] [id number] Carlota Jin MD 1 [facility], [facility] [address] [place] [phone] 02/05/2025 6:45 EDT Treatment [facility] [place] [address] [place], [place] [id number] Carlota Jin MD 1 [facility], [facility] [address] [place] [phone] 02/07/2025 6:45 EDT Treatment [facility] [place] [address] [place], [place] [id number] Carlota Jin MD 1 [facility], [facility] [address] [place] [phone] 02/09/2025 6:45 EDT Treatment [facility] [address] [place], [place] [phone] Carlota Jin MD 1 [facility], [facility] [address] [place] [phone] 02/12/2025 6:45 EDT Treatment [facility] [address] [place], [place] [id number] Carlota Jin MD 1 [facility], [facility] [address] [place] [phone] 02/14/2025 6:45 EDT Treatment [facility] [address] [place] [address] Carlota Jin MD 1 [facility], [address] [phone] 02/16/2025 6:45 EDT Treatment [facility] [address] [place], [place] [id number] Carlota Jin MD 1 [facility], [address] [phone] 02/19/2025 6:45 EDT Treatment [facility] [address] [place] [address] Carlota Jin MD 1 [facility], [facility] [address] [place] [phone] 02/21/2025 6:45 EDT Treatment [facility] [address] [place], [place] [id number] Carlota Jin MD 1 [facility], [facility] [address] [place] [phone] documented as of this encounter Procedures Procedure Name Priority Date/Time Associated Diagnosis Comments HEMODIALYSIS Routine 05/03/2023 7:04 EDT ESRD (end stage renal disease) ([facility]) documented in this encounter Visit Diagnoses Diagnosis ESRD (end stage renal disease) ([facility])- Primary End stage renal disease Anemia of chronic renal failure, unspecified CKD stage Hypoalbuminemia Other disorders of plasma protein metabolism Secondary hyperparathyroidism ([facility]) Secondary hyperparathyroidism (of renal origin) documented in this encounter Administered Medications Inactive Administered Medications - up to 3 most recent administrations Medication Order MAR Action Action Date Dose Rate Site calcium carbonate (TUMS) tablet 500 mg (200 mg elemental calcium) 2 Tablet 2 Tablet, oral, ONCE IN DIALYSIS, 1 dose, On Wed05/03/23 at 0730, Routine, DialysisIndications:ESRD (end stage renal disease) ([facility]),Secondary hyperparathyroidism ([facility]) Given 05/03/2023 10:11 EDT 2 Tablets epoetin ken (EPOGEN) 20,000 unit/2 mL injection 500 Units 500 Units, intravenous, ONCE IN DIALYSIS, 1 dose, On Wed05/03/23 at 0730, Routine, DialysisIndications:ESRD (end stage renal disease) ([facility]),Anemia of chronic renal failure, unspecified CKD stage Given 05/03/2023 10:11 EDT 500 Units heparin injection 9,000 Units 9,000 Units, intravenous, ONCE IN DIALYSIS, 1 dose, On Wed05/03/23 at 0730, Routine, Dialysis, Now x1 bolus 4500 units to be given at the beginning of dialysis 1500 units/hour to be given over the course of dialysis (9000 units total). Stop 1 hour prior to end of treatment. To be administered per Policy [id number].Indications:ESRD (end stage renal disease) ([facility]) Given 05/03/2023 10:11 EDT 9,000 Units LiquaCel liquid protein liquid 30 mL 30 mL, oral, ONCE IN DIALYSIS, 1 dose, On Wed05/03/23 at 0730, RoutineIndications:Hypoalbuminemi a,ESRD (end stage renal disease) ([facility]) Given 05/03/2023 10:11 EDT 30 mL documented in this encounter Orders Dialysis Count Last Ordered Date First Orde red Date HEMODIALYSIS 1 05/03/2023 documented in this encounter Care Teams Catering Service Manager Relationship Specialty Start Date End Date Adeola Villegas APRN [address] [place] [address] PCP - General 10/12/16 07/06/23 documented as of this encounter
--- OUTSIDE RECORDS SUMMARY | 2024-12-05 12:23 | XMS_ITS | Encounter Summary ---
Author Organization Health system Address [address] [place] [address] Care Team Providers Care Demolition Specialist Name Role Phone Adeola Villegas MONA Primary Care Provider [phone] Encounter Details Date Type Department Care Team (Latest Contact Info) Description 05/19/2023 8:30 EDT Treatment [facility] [address] [place] [address] Carlota Jin MD 1 [facility], Level 2 [place] [address] ESRD (end stage renal disease) ([facility]) (Primary Dx); Anemia of chronic renal failure, unspecified CKD stage; Hypoalbuminemia; Secondary hyperparathyroidism ([facility]) Social History Tobacco Use Types [...] Flowsheet Note - Teto Ribeiro RN - 05/19/2023 1619 EDT 05/19/23 1417 Post-Hemodialysis Assessment Total Blood Processed (L) 90.23 Liters On Line Clearance: spKt/V 1.43 spKt/V Dialyzer Clearance Lightly streaked Treatment UFR (ml:kg:hr) 3.36 ml:kg:hr Critline refill Not done Fluid Removed (L) 1.2 L Post-Dialysis Scale Weight 87.4 kg (192 lb 10.9 oz) Wheelchair Weight 0 kg (0 lb) Prosthesis Weight 0.9 kg (1 lb 15.8 oz) Post-Treatment Weight (kg) 86.5 Treatment Weight Change (kg) 1.2 kg Day Target Weight (kg) 87 Post Sitting/Lying BP 194/76 Post Sitting/Lying pulse 68 Post Standing BP 155/81 Post Standing Pulse 77 Temp 36.5 ??C (97.7 ??F) Temp src Temporal Post access assessment AVF/AFG Hemostasis achieved Yes Orientation Alert and Oriented x3 Yes Time Yes Place Yes Person Yes Cooperative Yes Disoriented No Wrap up items Patient Response to Treatment Pt sheldon. tx well, removed 1.2L Comments No complaints post-tx, no s/s of distress noted, VSS upon d/c documented in this encounter Plan of Treatment Upcoming Encounters Date Type Department Care Team (Late st Contact Info) Description 12/06/2024 6:45 EST Treatment [facility] Dialysi [facility] [address] [place], [place] [phone] Carlota Jin MD [address] [place] [address], [facility] 2 [place] [address] 12/08/2024 6:45 EST Treatment [facility] Dialysi [facility] [address] [place] [id number] Carlota Jin MD [address] [place] [address], [facility] [address] [place] [address] 12/11/2024 6:45 EST Treatment [facility] Dialysi [facility] [address] [place] [address] Carlota Jin MD 1 [facility], Level [address] [place] [phone] 12/13/2024 6:45 EST Treatment [facility] Dialysi - [place] [address] [place], [place] [id number] Carlota Jin MD 1 [facility], [facility] 2 [place] [phone] 12/15/2024 6:45 EST Treatment [facility] Dialysi - [place] [address] [place] [address] Carlota Jin MD 1 [facility], [facility] 2 [place] [phone] 12/18/2024 6:45 EST Treatment [facility] Dialysi - [place] [address] [place] [address] Carlota Jin MD 1 [facility], [facility] 2 [place] [phone] 12/20/2024 6:45 EST Treatment [facility] Dialysi [facility] [address] [place], [place] [id number] Carlota Jin MD 1 [facility], [facility] 2 [place] [phone] 12/22/2024 6:45 EST Treatment [facility] Dialysi [place] [address] [place], [place] [phone] Carlota Jin MD 1 [facility], [facility] 2 [place] [phone] 12/25/2024 6:45 EST Treatment [facility] Dialysi - [place] [address] [place], [place] [phone] Carlota Jin MD 1 [facility], [facility] 2 [place] [phone] 12/27/2024 6:45 EST Treatment [facility] Dialysi - [place] [address] [place], [place] [id number] Carlota Jin MD 1 [facility], [facility] 2 [place] [phone] 12/29/2024 6:45 EST Treatment [facility] Dialysi - [place] [address] [place], [place] [phone] Carlota Jin MD 1 [facility], [facility] 2 [place] [phone] 01/01/2025 6:45 EDT Treatment [facility] Dialysi - [place] [address] [place], [place] [phone] Carlota Jin MD 1 [facility], [facility] 2 [place] [phone] 01/03/2025 6:45 EDT Treatment [facility] Dialysi - [place] [address] [place], [place] [phone] Carlota Jin MD 1 [facility], [facility] 2 [place] [phone] 01/05/2025 6:45 EDT Treatment [facility] Dialysi - [place] [address] [place], [place] [phone] Carlota Jin MD 1 [facility], [facility] 2 [place] [phone] 01/08/2025 6:45 EDT Treatment [facility] Dialysi - [place] [address] [place], [place] [phone] Carlota Jin MD 1 [facility], [facility] 2 [place] [phone] 01/10/2025 6:45 EDT Treatment [facility] Dialysi - [place] [address] [place], [place] [phone] Carlota Jin MD 1 [facility], [facility] 2 [place] [phone] 01/12/2025 6:45 EDT Treatment [facility] Dialysi - [place] [address] [place], [place] [id number] Carlota Jin MD 1 [facility], [facility] 2 [place] [phone] 01/15/2025 6:45 EDT Treatment [facility] [address] [place], [place] [phone] Carlota Jin MD 1 [facility], [facility] 2 [place] [phone] 01/17/2025 6:45 EDT Treatment [facility] Dialysi [place] [address] [place], [place] [phone] Carlota Jin MD 1 [facility], [facility] 2 [place] [phone] 01/19/2025 6:45 EDT Treatment [facility] Dialys[facility] - [place] [address] [place], [place] [phone] Carlota Jin MD 1 [facility], [facility] 2 [place] [phone] 01/22/2025 6:45 EDT Treatment [facility] - [place] [address] [place], [place] [phone] Carlota Jin MD 1 [facility], [facility] 2 [place] [phone] 01/24/2025 6:45 EDT Treatment [facility] - [place] [address] [place], [place] [phone] Carlota Jin MD 1 [facility], [facility] 2 [place] [phone] 01/26/2025 6:45 EDT Treatment [facility] - [place] [address] [place], [place] [id number] Carlota Jin MD 1 [facility], [facility] 2 [place] [phone] 01/29/2025 6:45 EDT Treatment [facility] Dialysi - [place] [address] [place], [place] [phone] Carlota Jin MD 1 [facility], [facility] 2 [place] [phone] 01/31/2025 6:45 EDT Treatment [facility] D[facility]ysi - [place] [address] [place], [place] [phone] Carlota Jin MD 1 [facility], [facility] 2 [place] [phone] 02/02/2025 6:45 EDT Treatment [facility] - [place] [address] [place] [address] Carlota Jin MD 1 [facility], [address] [phone] 02/05/2025 6:45 EDT Treatment [facility] Dialysi - [place] [address] [place], [place] [phone] Carlota Jin MD 1 [facility], [address] [phone] 02/07/2025 6:45 EDT Treatment [facility] Dialysi - [place] [address] [place], [place] [phone] Carlota Jin MD 1 [facility], [address] [phone] 02/09/2025 6:45 EDT Treatment [facility] Dialys[facility] - [place] [address] [place], [place] [phone] Carlota Jin MD 1 [facility], [facility] 2 [place] [phone] 02/12/2025 6:45 EDT Treatment [facility] D[facility]ys[facility] - [place] [address] [place], [place] [phone] Carlota Jin MD 1 [facility], [facility] 2 [place] [phone] 02/14/2025 6:45 EDT Treatment [facility]ial[facility] - [place] [address] [place], [place] [phone] Carlota Jin MD [address] [place] [phone] 02/16/2025 6:45 EDT Treatment [facility]ial[facility] - [place] [address] [place] [phone] Carlota Jin MD [address] [place] [address], [address] [phone] 02/19/2025 6:45 EDT Treatment [facility]ial[facility] - [place] [address] [place], [place] [phone] Carlota Jin MD [address] [place] [phone] 02/21/2025 6:45 EDT Treatment [facility]ialysi - [place] [address] [place], [place] [phone] Carlota Jin MD [address] [place] [phone] documented as of this encounter Procedures Procedure Name Priority Date/Time Associated Diagnosis Comments COMPLETE BLOOD COUNT Routine 05/19/2023 8:17 EDT ESRD (end stage renal disease) ([facility]) HEMODIALYSIS Routine 05/19/2023 8:14 EDT ESRD (end stage renal disease) ([facility]) documented in this encounter Results * (ABNORMAL) COMPLETE BLOOD COUNT (05/19/2023 8:17 EDT) WBC 7.15 4.00 - 10.40 K/cmm 05/19/2023 21:20 [facility] RBC 3.20(L) 4.36 - 5.78 M/cmm 05/19/2023 21:20 [facility] Hemoglobin 10.2(L) 13.8 - 17.3 g/dL 05/19/2023 21:20 [facility] HCT 31.1(L) 39.5 - 50.2 % 05/19/2023 21:20 [facility] MCV 97(H) 81 - 95 fL 05/19/2023 21:20 [facility] MCH 31.9 27.6 - 33.0 pg 05/19/2023 21:20 [facility] MCHC 32.8 32.8 - 36.4 g/dL 05/19/2023 21:20 [facility] RDW-CV 12.4 <14.2 % 05/19/2023 21:20 [facility] RDW-SD 44.6 <46.0 fl 05/19/2023 21:20 [facility] PLT 258 141 - 377 K/cmm 05/19/2023 21:20 [facility] MPV 11.6 9.5 - 12.7 fL 05/19/2023 21:20 [facility] Blood VENOUS BLOOD / Unknown Venipuncture / Unknown 05/19/2023 8:17 EDT 05/19/2023 8:17 EDT us Carlota Jin MD HEMATOLOGY & PF4 ORDERABL ES Final Result [facility] [address] [place] [address] documented in this encounter Visit Diagnoses Diagnosis ESRD (end stage renal disease) ([facility] Primary End stage renal disease Anemia of [...] oral, EVERY 4 HOURS PRN, Starting on Wed05/19/23 at 0818, Until Wed05/19/23 at 1819, Pain, Routine, DialysisIndications:ESRD (end stage renal disease) ([facility]) Given 05/19/2023 8:50 EDT 650 mg calcium carbonate (TUMS) tablet 500 mg (200 mg elemental calcium) 2 Tablet 2 Tablet, oral, ONCE IN DIALYSIS, 1 dose, On Wed05/19/23 at 0830, Routine, DialysisIndications:ESRD (end stage renal disease) ([facility]),Secondary hyperparathyroidism ([facility]) Given 05/19/2023 8:50 EDT 2 Tablets epoetin ken (EPOGEN) 20,000 unit/2 mL injection 500 Units 500 Units, intravenous, ONCE IN DIALYSIS, 1 dose, On Wed05/19/23 at 0830, Routine, DialysisIndications:ESRD (end stage renal disease) ([facility]),Anemia of chronic renal failure, unspecified CKD stage Given 05/19/2023 8:49 EDT 500 Units heparin injection 9,000 Units 9,000 Units, intravenous, ONCE IN DIALYSIS, 1 dose, On Wed05/19/23 at 0830, Routine, Dialysis, Now x1 bolus 4500 units to be given at the beginning of dialysis 1500 units/hour to be given over the course of dialysis (9000 units total). Stop 1 hour prior to end of treatment. To be administered per Policy [id number].Indications:ESRD (end stage renal disease) ([facility]) Given 05/19/2023 8:29 EDT 9,000 Units LiquaCel liquid protein liquid 30 mL 30 mL, oral, ONCE IN DIALYSIS, 1 dose, On Wed05/19/23 at 0830, RoutineIndications:Hypoalbuminemi a,ESRD (end stage renal disease) ([facility]) Given 05/19/2023 8:49 EDT 30 mL documented in this encounter Orders Dialysis Count Last Ordered Date First Orde red Date HEMODIALYSIS 1 05/19/2023 documented in this encounter Care Teams Demolition Specialist Relationship Specialty Start Date End Date Adeola Villegas APRN [address] [place] [address] PCP - General 10/12/16 07/06/23 documented as of this encounter
--- OUTSIDE RECORDS SUMMARY | 2024-12-05 12:23 | XMS_ITS | Encounter Summary ---
Author Organization [facility] [place] Address [address] [place] [address] Care Team Providers Care Licensed Chemical Spray Technician Name Role Phone Adeola Villegas APRN Primary Care Provider [phone] Encounter Details Date Type Department Care Team (Latest Contact Info) Description 05/21/2023 8:30 EDT Treatment [facility] [address] [place] [address] Carlota Jin MD 1 [facility], Level [address] [place] [address] ESRD (end stage renal disease) ([facility]) (Primary Dx); Anemia of chronic renal failure, unspecified CKD stage; Hypoalbuminemia; Secondary hyperparathyroidism ([facility]) Social History Tobacco Use Types Packs/Day [...] - Temperature - - Respiratory Rate 18 05/21/2023 0808 EDT Oxygen Saturation - - Inhaled Oxygen Concentration - - Weight - - Height - - Body Mass Index - - documented in this encounter Miscellaneous Notes * Flowsheet Note - Teto Ribeiro RN - 05/21/2023 1505 EDT 05/21/23 1229 Post-Hemodialysis Assessment Total Blood Processed (L) 87.9 Liters On Line Clearance: spKt/V 1.39 spKt/V Dialyzer Clearance Lightly streaked Treatment UFR (ml:kg:hr) 4.87 ml:kg:hr Critline refill Not done Fluid Removed (L) 2.1 L Post-Dialysis Scale Weight 86.9 kg (191 lb 9.3 oz) Wheelchair Weight 0 kg (0 lb) Prosthesis Weight 0 kg (0 lb) Post-Treatment Weight (kg) 86.9 Treatment Weight Change (kg) 1.7 kg Day Target Weight (kg) 87 Post Sitting/Lying BP 137/71 Post Sitting/Lying pulse 69 Post Standing BP 136/73 Post Standing Pulse 69 Temp 36.6 ??C (97.9 ??F) Temp src Temporal Post access assessment AVF/AFG Hemostasis achieved Yes Orientation Alert and Oriented x3 Yes Time Yes Place Yes Person Yes Cooperative Yes Disoriented No Discharge Ambulation Methods Ambulatory without assistance Wrap up items Patient Response to Treatment pt sheldon. tx well, removed 2.1L Comments No complaints, no s/s of distress noted VSS upon d/c documented in this encounter Plan of Treatment Upcoming Encounters Date Type Department Care Team (Late st Contact Info) Description 12/06/2024 6:45 EST Treatment [facility] [address] [place] [id number] Carlota Jin MD 1 [facility], [address] [place] [address] 12/08/2024 6:45 EST Treatment [facility] [address] [place] [id number] Carlota Jin MD [address] [facility], [address] [place] [address] 12/11/2024 6:45 EST Treatment [facility] [place] [address] [place], [place] [id number] Carlota Jin MD 1 [facility], [facility] [address] [place] [phone] 12/13/2024 6:45 EST Treatment [facility] [place] [address] [place], [place] [id number] Carlota Jin MD 1 [facility], [facility] [address] [place] [phone] 12/15/2024 6:45 EST Treatment [facility] [place] [address] [place], [place] [id number] Carlota Jin MD 1 [facility], [facility] [address] [place] [phone] 12/18/2024 6:45 EST Treatment [facility] [place] [address] [place], [place] [phone] Carlota Jin MD 1 [facility], [facility] [address] [place] [phone] 12/20/2024 6:45 EST Treatment [facility] [place] [address] [place], [place] [id number] Carlota Jin MD 1 [facility], [facility] [address] [place] [phone] 12/22/2024 6:45 EST Treatment [facility] [place] [address] [place], [place] [phone] Carlota Jin MD 1 [facility], [facility] [address] [place] [phone] 12/25/2024 6:45 EST Treatment [facility] [place] [address] [place], [place] [phone] Carlota Jin MD 1 [facility], [facility] [address] [place] [phone] 12/27/2024 6:45 EST Treatment [facility] [place] [address] [place], [place] [phone] Carlota Jin MD 1 [facility], [address] [phone] 12/29/2024 6:45 EST Treatment [facility] [place] [address] [place], [place] [phone] Carlota Jin MD 1 [facility], [address] [phone] 01/01/2025 6:45 EDT Treatment [facility] [place] [address] [place], [place] [phone] Carlota Jin MD 1 [facility], [facility] [address] [place] [phone] 01/03/2025 6:45 EDT Treatment [facility] [place] [address] [place], [place] [phone] Carlota Jin MD 1 [facility], [facility] [address] [place] [phone] 01/05/2025 6:45 EDT Treatment [facility] [place] [address] [place], [place] [phone] Carlota Jin MD 1 [facility], [facility] [address] [place] [phone] 01/08/2025 6:45 EDT Treatment [facility] [place] [address] [place], [place] [phone] Carlota Jin MD 1 [facility], [facility] [address] [place] [phone] 01/10/2025 6:45 EDT Treatment [facility] [place] [address] [place], [place] [id number] Carlota Jin MD [address] [place] [address], [address] [phone] 01/12/2025 6:45 EDT Treatment [facility] [place] [address] [place], [place] [phone] Carlota Jin MD 1 [facility], [facility] [address] [place] [phone] 01/15/2025 6:45 EDT Treatment [facility] [place] [address] [place], [place] [phone] Carlota Jin MD 1 [facility], [facility] [address] [place] [phone] 01/17/2025 6:45 EDT Treatment [facility] [place] [address] [place], [place] [address] Carlota Jin MD 1 [facility], [facility] [address] [place] [phone] 01/19/2025 6:45 EDT Treatment [facility] [place] [address] [place] [address] Carlota Jin MD 1 [facility], [address] [phone] 01/22/2025 6:45 EDT Treatment [facility] [place] [address] [place], [place] [phone] Calrota Jin MD 1 [facility], [address] [phone] 01/24/2025 6:45 EDT Treatment [facility] [place] [address] [place] [address] Carlota Jin MD 1 [facility], [address] [phone] 01/26/2025 6:45 EDT Treatment [facility] [place] [address] [place], [place] [phone] Carlota Jin MD 1 [facility], [address] [phone] 01/29/2025 6:45 EDT Treatment [facility] [place] [address] [place], [place] [phone] Carlota Jin MD 1 [facility], [facility] [address] [place] [phone] 01/31/2025 6:45 EDT Treatment [facility] [place] [address] [place], [place] [phone] Carlota Jin MD 1 [facility], [facility] [address] [place] [phone] 02/02/2025 6:45 EDT Treatment [facility] [place] [address] [place], [place] [phone] Carlota Jin MD 1 [facility], [facility] [address] [place] [phone] 02/05/2025 6:45 EDT Treatment [facility] [place] [address] [place], [place] [phone] Carlota Jin MD 1 [facility], [facility] [address] [place] [phone] 02/07/2025 6:45 EDT Treatment [facility] [place] [address] [place], [place] [phone] Carlota Jin MD 1 [facility], [facility] [address] [place] [phone] 02/09/2025 6:45 EDT Treatment [facility] [address] [place], [place] [phone] Carlota Jin MD 1 [facility], [facility] [address] [place] [phone] 02/12/2025 6:45 EDT Treatment [facility] [place] [address] [place], [place] [phone] Carlota Jin MD [address] [phone] 02/14/2025 6:45 EDT Treatment [facility] [place] [address] [place], [place] [phone] Carlota Jin MD [address] [place] [phone] 02/16/2025 6:45 EDT Treatment [facility] [place] [address] [place], [place] [phone] Carlota Jin MD [address] [place] [phone] 02/19/2025 6:45 EDT Treatment [facility] [place] [address] [place], [place] [phone] Carlota Jin MD [address] [place] [phone] 02/21/2025 6:45 EDT Treatment [facility] [address] [place], [place] [phone] Carlota Jin MD [address] [phone] documented as of this encounter Procedures Procedure Name Priority Date/Time Associated Diagnosis Comments HEMODIALYSIS Routine 05/21/2023 8:08 EDT ESRD (end stage renal disease) ([facility]) documented in this encounter Visit Diagnoses Diagnosis ESRD (end stage renal disease) ([facility])- Primary End stage renal disease Anemia of chronic renal failure, unspecified CKD stage Hypoalbuminemia Other disorders of plasma protein metabolism Secondary hyperparathyroidism ([facility]) Secondary hyperparathyroidism (of renal origin) documented in this encounter Administered Medications Inactive Administered Medications - up to 3 most recent administrations Medication Order MAR Action Action Date Dose Rate Site calcium carbonate (TUMS) tablet 500 mg (200 mg elemental calcium) 2 Tablet 2 Tablet, oral, ONCE IN DIALYSIS, 1 dose, On Wed05/21/23 at 0830, Routine, DialysisIndications:ESRD (end stage renal disease) ([facility]),Secondary hyperparathyroidism ([facility]) Given 05/21/2023 9:00 EDT 2 Tablets epoetin ken (EPOGEN) 20,000 unit/2 mL injection 500 Units 500 Units, intravenous, ONCE IN DIALYSIS, 1 dose, On Wed05/21/23 at 0830, Routine, DialysisIndications:ESRD (end stage renal disease) ([facility]),Anemia of chronic renal failure, unspecified CKD stage Given 05/21/2023 9:00 EDT 500 Units heparin injection 9,000 Units 9,000 Units, intravenous, ONCE IN DIALYSIS, 1 dose, On Wed05/21/23 at 0830, Routine, Dialysis, Now x1 bolus 4500 units to be given at the beginning of dialysis 1500 units/hour to be given over the course of dialysis (9000 units total). Stop 1 hour prior to end of treatment. To be administered per Policy [id number].Indications:ESRD (end stage renal disease) ([facility]) Given 05/21/2023 8:28 EDT 9,000 Units LiquaCel liquid protein liquid 30 mL 30 mL, oral, ONCE IN DIALYSIS, 1 dose, On Wed05/21/23 at 0830, RoutineIndications:Hypoalbuminemi a,ESRD (end stage renal disease) ([facility]) Given 05/21/2023 9:38 EDT 30 mL documented in this encounter Orders Dialysis Count Last Ordered Date First Orde red Date HEMODIALYSIS 1 05/21/2023 documented in this encounter Care Teams Licensed Chemical Spray Technician Relationship Specialty Start Date End Date Adeola Villegas APRN [address] [place] [address] PCP - General 10/12/16 07/06/23 documented as of this encounter
--- OUTSIDE RECORDS SUMMARY | 2024-12-05 12:23 | XMS_ITS | Encounter Summary ---
Author Organization [facility] Address [address] [place] [address] Care Team Providers Care Designer And Patternmaker Name Role Phone Adeola Villegas APRN Primary Care Provider [phone] Encounter Details Date Type Department Care Team (Latest Contact Info) Description 05/26/2023 6:45 EDT Treatment [facility] [address] [place] [address] Carlota Jin MD 1 [facility], Level [address] [place] [address] ESRD (end stage renal disease) ([facility]) (Primary Dx); Anemia of chronic renal failure, unspecified CKD stage; Hypoalbuminemia; Secondary hyperparathyroidism ([facility]) Social History Tobacco Use Types Packs/Day Years [...] - Temperature - - Respiratory Rate 16 05/26/2023 0628 EDT Oxygen Saturation - - Inhaled Oxygen Concentration - - Weight 89.1 kg (196 lb 6.9 oz) 05/26/2023 0630 E DT Height - - Body Mass Index 28.59 01/25/2023 0751 EDT documented in this encounter Miscellaneous Notes * Flowsheet Note - Marcela Cox RN - 05/26/2023 1218 EDT 05/26/23 1103 Post-Hemodialysis Assessment Total Blood Processed (L) 90.47 Liters On Line Clearance: spKt/V 1.51 spKt/V Dialyzer Clearance Lightly streaked Treatment UFR (ml:kg:hr) 6.52 ml:kg:hr Critline refill Not done Fluid Removed (L) 2.2 L Post-Dialysis Scale Weight 87.8 kg (193 lb 9 oz) Wheelchair Weight 0 kg (0 lb) Prosthesis Weight 1 kg (2 lb 3.3 oz) Post-Treatment Weight (kg) 86.8 Treatment Weight Change (kg) 2.3 kg Day Target Weight (kg) 87.4 Post Sitting/Lying BP 164/86 Post Sitting/Lying pulse 71 Post Standing BP 130/70 Post Standing Pulse 73 Temp 36.6 ??C [...] Description 12/06/2024 6:45 EST Treatment [facility] [place] [address] [place], [place] [address] Carlota Jin MD 1 [facility], [address] [place] [address] 12/08/2024 6:45 EST Treatment [facility] [place] [address] [place] [address] Carlota Jin MD 1 [facility], Level [address] [place] [phone] 12/11/2024 6:45 EST Treatment [facility] [place] [address] [place], [place] [address] Carlota Jin MD 1 [facility], [facility] 2 [place] [phone] 12/13/2024 6:45 EST Treatment [facility] [place] [address] [place], [place] [id number] Carlota Jin MD 1 [facility], [facility] 2 [place] [phone] 12/15/2024 6:45 EST Treatment [facility] [place] [address] [place], [place] [phone] Carlota Jin MD [address] [facility], [facility] 2 [place] [phone] 12/18/2024 6:45 EST Treatment [facility] [place] [address] [place] [address] Carlota Jin MD [address] [facility], [facility] 2 [place] [phone] 12/20/2024 6:45 EST Treatment [facility] - [place] [address] [place], [place] [phone] Carlota Jin MD [address] [facility], [facility] 2 [place] [phone] 12/22/2024 6:45 EST Treatment [facility] [place] [address] [place], [place] [phone] Carlota Jin MD 1 [facility], [facility] 2 [place] [phone] 12/25/2024 6:45 EST Treatment [facility] [place] [address] [place], [place] [phone] Carlota Jin MD 1 [facility], [facility] 2 [place] [phone] 12/27/2024 6:45 EST Treatment [facility] [place] [address] [place], [place] [phone] Carlota Jin MD 1 [facility], [facility] 2 [place] [phone] 12/29/2024 6:45 EST Treatment [facility] [place] [address] [place], [place] [phone] Carlota Jin MD 1 [facility], [facility] 2 [place] [phone] 01/01/2025 6:45 EDT Treatment [facility] [place] [address] [place], [place] [phone] Carlota Jin MD 1 [facility], [facility] 2 [place] [phone] 01/03/2025 6:45 EDT Treatment [facility] [place] [address] [place], [place] [phone] Carlota Jin MD [address] [facility], [facility] 2 [place] [phone] 01/05/2025 6:45 EDT Treatment [facility] [place] [address] [place], [place] [address] Carlota Jin MD [address] [facility], [facility] 2 [place] [phone] 01/08/2025 6:45 EDT Treatment [facility] [place] [address] [place], [place] [phone] Carlota Jin MD 1 [facility], [facility] 2 [place] [phone] 01/10/2025 6:45 EDT Treatment [facility] [place] [address] [place] [address] Carlota Jin MD 1 [facility], [facility] 2 [place] [phone] 01/12/2025 6:45 EDT Treatment [facility] [place] [address] [place] [address] Carlota Jin MD 1 [facility], [facility] 2 [place] [phone] 01/15/2025 6:45 EDT Treatment [facility] - [place] [address] [place], [place] [phone] Carlota Jin MD 1 [facility], [facility] 2 [place] [phone] 01/17/2025 6:45 EDT Treatment [facility] [place] [address] [place], [place] [phone] Carlota Jin MD 1 [facility], [facility] 2 [place] [phone] 01/19/2025 6:45 EDT Treatment [facility] [place] [address] [place], [place] [phone] Carlota Jin MD 1 [facility], [facility] 2 [place] [phone] 01/22/2025 6:45 EDT Treatment [facility] [place] [address] [place] [address] Carlota Jin MD 1 [facility], [address] [phone] 01/24/2025 6:45 EDT Treatment [facility] [place] [address] [place], [place] [phone] Carlota Jin MD 1 [facility], [facility] 2 [place] [phone] 01/26/2025 6:45 EDT Treatment [facility] [place] [address] [place], [place] [phone] Carlota Jin MD 1 [facility], [facility] 2 [place] [phone] 01/29/2025 6:45 EDT Treatment [facility] [place] [address] [place] [address] Carlota Jin MD 1 [facility], [facility] 2 [place] [phone] 01/31/2025 6:45 EDT Treatment [facility] [place] [address] [place] [address] [address] MD [address] [facility], [facility] 2 [place] [phone] 02/02/2025 6:45 EDT Treatment [facility] [place] [address] [place] [address] Carlota Jin MD 1 [facility], [address] [phone] 02/05/2025 6:45 EDT Treatment [facility] [place] [address] [place] [address] Carlota Jin MD 1 [facility], [address] [phone] 02/07/2025 6:45 EDT Treatment [facility] [place] [address] [place] [address] Carlota Jin MD 1 [facility], [facility] 2 [place] [phone] 02/09/2025 6:45 EDT Treatment [facility] - [place] [address] [place], [place] [phone] Carlota Jin MD 1 [facility], [facility] 2 [place] [phone] 02/12/2025 6:45 EDT Treatment [facility] [place] [address] [place], [place] [phone] Carlota Jin MD 1 [facility], [address] [phone] 02/14/2025 6:45 EDT Treatment [facility] [place] [address] [place], [place] [phone] Carlota Jin MD [address] [place] [address], [address] [phone] 02/16/2025 6:45 EDT Treatment [facility] [address] [place], [place] [phone] Carlota Jin MD [address] [place] [address], [address] [phone] 02/19/2025 6:45 EDT Treatment [facility] [place] [address] [place], [place] [phone] Carlota Jin MD [address] [place] [address], [address] [phone] 02/21/2025 6:45 EDT Treatment [facility] [address] [place], [place] [phone] Carlota Jin MD 1 [facility], [address] [phone] documented as of this encounter Procedures Procedure Name Priority Date/Time Associated Diagnosis Comments COMPLETE BLOOD COUNT Routine 05/26/2023 6:38 EDT ESRD (end stage renal disease) ([facility]) HEMODIALYSIS Routine 05/26/2023 6:28 EDT ESRD (end stage renal disease) ([facility]) documented in this encounter Results * (ABNORMAL) COMPLETE BLOOD COUNT (05/26/2023 6:38 EDT) WBC 7.78 4.00 - 10.40 K/cmm 05/26/2023 21:38 [facility] RBC 3.29(L) 4.36 - 5.78 M/cmm 05/26/2023 21:38 [facility] Hemoglobin 10.5(L) 13.8 - 17.3 g/dL 05/26/2023 21:38 [facility] HCT 32.1(L) 39.5 - 50.2 % 05/26/2023 21:38 [facility] MCV 98(H) 81 - 95 fL 05/26/2023 21:38 [facility] MCH 31.9 27.6 - 33.0 pg 05/26/2023 21:38 [facility] MCHC 32.7(L) 32.8 - 36.4 g/dL 05/26/2023 21:38 [facility] RDW-CV 12.3 <14.2 % 05/26/2023 21:38 [facility] RDW-SD 44.1 <46.0 fl 05/26/2023 21:38 [facility] PLT 265 141 - 377 K/cmm 05/26/2023 21:38 [facility] MPV 11.7 9.5 - 12.7 fL 05/26/2023 21:38 [facility] Blood VENOUS BLOOD / Unknown Venipuncture / Unknown 05/26/2023 6:38 EDT 05/26/2023 6:38 EDT us Carlota Jin MD HEMATOLOGY & PF4 ORDERABL ES Final Result [facility] [address] [place] [address] documented in this encounter Visit Diagnoses Diagnosis ESRD (end stage renal disease) ([facility] Primary End stage renal disease Anemia of chronic renal failure, unspecified CKD stage Hypoalbuminemia Other disorders of plasma protein metabolism Secondary hyperparathyroidism ([facility]) Secondary hyperparathyroidism (of renal origin) documented in this encounter Administered Medications Inactive Administered Medications - up to 3 most recent administrations Medication Order MAR Action Action Date Dose Rate Site calcium carbonate (TUMS) tablet 500 mg (200 mg elemental calcium) 2 Tablet 2 Tablet, oral, ONCE IN DIALYSIS, 1 dose, On Wed05/26/23 at 0645, Routine, DialysisIndications:ESRD (end stage renal disease) ([facility]),Secondary hyperparathyroidism ([facility]) Given 05/26/2023 6:38 EDT 2 Tablets epoetin ken (EPOGEN) 20,000 unit/2 mL injection 500 Units 500 Units, intravenous, ONCE IN DIALYSIS, 1 dose, On Wed05/26/23 at 0645, Routine, DialysisIndications:ESRD (end stage renal disease) ([facility]),Anemia of chronic renal failure, unspecified CKD stage Given 05/26/2023 6:38 EDT 500 Units heparin injection 9,000 Units 9,000 Units, intravenous, ONCE IN DIALYSIS, 1 dose, On Wed05/26/23 at 0645, Routine, Dialysis, Now x1 bolus 4500 units to be given at the beginning of dialysis 1500 units/hour to be given over the course of dialysis (9000 units total). Stop 1 hour prior to end of treatment. To be administered per Policy [id number].Indications:ESRD (end stage renal disease) ([facility]) Given 05/26/2023 6:38 EDT 9,000 Units LiquaCel liquid protein liquid 30 mL 30 mL, oral, ONCE IN DIALYSIS, 1 dose, On Wed05/26/23 at 0645, RoutineIndications:Hypoalbuminemi a,ESRD (end stage renal disease) ([facility]) Given 05/26/2023 6:38 EDT 30 mL documented in this encounter Orders Dialysis Count Last Ordered Date First Orde red Date HEMODIALYSIS 1 05/26/2023 documented in this encounter Care Teams Designer And Patternmaker Relationship Specialty Start Date End Date Adeola Villegas APRN [address] [place] [address] PCP - General 10/12/16 07/06/23 documented as of this encounter
--- OUTSIDE RECORDS SUMMARY | 2024-12-05 12:23 | XMS_ITS | Encounter Summary ---
Author Organization [facility] Address [address] [place] [address] Care Team Providers Care Electronics Maintenance Technician Name Role Phone Adeola Villegas MONA Primary Care Provider [phone] Encounter Details Date Type Department Care Team (Late st Contact Info) Description 05/12/2023 Documentation Visit [facility] [address] [place] [address] Teto Ribeiro RN Social History Tobacco Use Types Packs/Day Years Used Date Smoking Tobacco: Every Day Cigarettes Smokeless Tobacco: Never PHQ-2 Answer Date Recorded PHQ-2 SUBTOTAL 1 01/27/2023 Sex and Gender Information Value Date Recorded Sex Assigned at Not on file Legal Sex Male 18:49 EST Gender Identity Male 07/07/2023 14:11 EDT Sexual Orientation Not on file documented as of this encounter Progress Notes * Teto Ribeiro RN - 05/12/2023 0828 EDT 05/12/23 8:29 [facility]ICATION RECONCILIATION Medication review of home medications (prescriptions, [id number], herbals, vitamin/mineral/dietary (nutritional) supplements, medical marijuana, and [...] in Other Visits Medication Route Frequency ??? calcium carbonate (TUMS) tablet 500 mg (200 mg elemental calcium) 2 Tablet oral ONCE IN DIALYSIS ??? epoetin ken (EPOGEN) 20,000 unit/2 mL injection 500 Units intravenous ONCE IN DIALYSIS ??? heparin injection 9,000 Units intravenous ONCE IN DIALYSIS ??? LiquaCel liquid protein liquid 30 mL oral ONCE IN DIALYSIS Teto Ribeiro RN documented in this encounter Plan of Treatment Upcoming Encounters Date Type Department Care Team (Late st Contact Info) Description 12/06/2024 6:45 EST Treatment [facility] [address] [place] [address] Carlota Jin MD 1 [facility], Level [address] [place] [address] 12/08/2024 6:45 EST Treatment [facility] [address] [place] [phone] Carlota Jin MD 1 [facility], [facility] 2 [place] [phone] 12/11/2024 6:45 EST Treatment [facility] - [place] [address] [place], [place] [phone] Carlota Jin MD 1 [facility], [facility] [address] [place] [phone] 12/13/2024 6:45 EST Treatment [facility] - [place] [address] [place], [place] [phone] Carlota Jin MD 1 [facility], [facility] 2 [place] [phone] 12/15/2024 6:45 EST Treatment [facility] - [place] [address] [place] [address] Carlota Jin MD 1 [facility], [facility] 2 [place] [phone] 12/18/2024 6:45 EST Treatment [facility] - [place] [address] [place], [place] [phone] Carlota Jin MD 1 [facility], [facility] [address] [place] [phone] 12/20/2024 6:45 EST Treatment [facility] - [place] [address] [place], [place] [phone] Carlota Jin MD 1 [facility], [facility] [address] [place] [phone] 12/22/2024 6:45 EST Treatment [facility] - [place] [address] [place], [place] [phone] Carlota Jin MD 1 [facility], [facility] [address] [place] [phone] 12/25/2024 6:45 EST Treatment [facility] - [place] [address] [place], [place] [phone] Carlota Jin MD 1 [facility], [facility] [address] [place] [phone] 12/27/2024 6:45 EST Treatment [facility] [address] [place], [place] [phone] Carlota Jin MD [address] [place] [address], [facility] [address] [place] [phone] 12/29/2024 6:45 EST Treatment [facility] [address] [place], [place] [phone] Carlota Jin MD 1 [facility], [facility] [address] [place] [phone] 01/01/2025 6:45 EDT Treatment [facility] [place] [address] [place], [place] [phone] Carlota Jin MD 1 [facility], [facility] [address] [place] [phone] 01/03/2025 6:45 EDT Treatment [facility] [address] [place], [place] [address] Carlota Jin MD 1 [facility], [facility] [address] [place] [phone] 01/05/2025 6:45 EDT Treatment [facility] - [place] [address] [place], [place] [phone] Carlota Jin MD 1 [facility], [facility] [address] [place] [phone] 01/08/2025 6:45 EDT Treatment [facility] - [place] [address] [place], [place] [phone] Carlota Jin MD 1 [facility], [address] [phone] 01/10/2025 6:45 EDT Treatment [facility] - [place] [address] [place], [place] [address] Carlota Jin MD 1 [facility], [address] [phone] 01/12/2025 6:45 EDT Treatment [facility] - [place] [address] [place], [place] [phone] Carlota Jin MD 1 [facility], [facility] [address] [place] [phone] 01/15/2025 6:45 EDT Treatment [facility] - [place] [address] [place], [place] [phone] Carlota Jin MD 1 [facility], [facility] 2 [place] [phone] 01/17/2025 6:45 EDT Treatment [facility] - [place] [address] [place], [place] [phone] Carlota Jin MD 1 [facility], [facility] [address] [place] [phone] 01/19/2025 6:45 EDT Treatment [facility] - [place] [address] [place], [place] [phone] Carlota Jin MD 1 [facility], [facility] [address] [place] [phone] 01/22/2025 6:45 EDT Treatment [facility] - [place] [address] [place], [place] [address] Carlota Jin MD 1 [facility], [address] [phone] 01/24/2025 6:45 EDT Treatment [facility] - [place] [address] [place], [place] [phone] Carlota Jin MD 1 [facility], [facility] 2 [place] [phone] 01/26/2025 6:45 EDT Treatment [facility] - [place] [address] [place], [place] [phone] Carlota Jin MD 1 [facility], [facility] [address] [place] [phone] 01/29/2025 6:45 EDT Treatment [facility] - [place] [address] [place], [place] [address] Carlota Jin MD 1 [facility], [facility] 2 [place] [phone] 01/31/2025 6:45 EDT Treatment [facility] - [place] [address] [place] [address] Carlota Jin MD 1 [facility], [address] [phone] 02/02/2025 6:45 EDT Treatment [facility] - [place] [address] [place], [place] [address] Carlota Jin MD 1 [facility], [address] [phone] 02/05/2025 6:45 EDT Treatment [facility] - [place] [address] [place] [address] Carlota Jin MD 1 [facility], [address] [phone] 02/07/2025 6:45 EDT Treatment [facility] - [place] [address] [place], [place] [phone] Carlota Jin MD [address] [phone] 02/09/2025 6:45 EDT Treatment [facility] - [place] [address] [place], [place] [phone] Carlota Jin MD 1 [facility], [facility] [place] [phone] 02/12/2025 6:45 EDT Treatment [facility] - [place] [address] [place], [place] [phone] Carlota Jin MD 1 [facility], [facility] [place] [phone] 02/14/2025 6:45 EDT Treatment [facility] - [place] [address] [place], [place] [phone] Carlota Jin MD 1 [facility], [address] [phone] 02/16/2025 6:45 EDT Treatment [facility] - [place] [address] [place], [place] [phone] Carlota Jin MD 1 [facility], [address] [phone] 02/19/2025 6:45 EDT Treatment [facility] - [place] [address] [place], [place] [phone] Carlota Jin MD 1 [facility], [address] [phone] 02/21/2025 6:45 EDT Treatment [facility] [place] [address] [place], [place] [phone] Carlota Jin MD 1 [facility], [facility] [place] [phone] documented as of this encounter Visit Diagnoses Not on filedocumented in this encounter Care Teams Electronics Maintenance Technician Relationship Specialty Start Date End Date Adeola Villegas APRN [address] [place] [address] PCP - General 10/12/16 07/06/23 documented as of this encounter
--- OUTSIDE RECORDS SUMMARY | 2024-12-05 12:23 | XMS_ITS | Encounter Summary ---
Author Organization [facility] Address [address] [place] [address] Care Team Providers Care Brick Burner Name Role Phone Adeola Villegas MONA Primary Care Provider [phone] Encounter Details Date Type Department Care Team (Latest Contact Info) Description 05/05/2023 7:15 EDT Treatment [facility] [address] [place] [address] Carlota Jin MD 1 [facility], Level 2 [place] [address] ESRD (end stage renal disease) ([facility]) (Primary Dx); Anemia of chronic renal failure, unspecified CKD stage; Hypoalbuminemia; Secondary hyperparathyroidism ([facility]) Social History Tobacco Use Types Packs/Day [...] - Temperature - - Respiratory Rate 18 05/05/2023 1119 EDT Oxygen Saturation - - Inhaled Oxygen Concentration - - Weight 89.2 kg (196 lb 10.4 oz) 05/05/2023 0659 EDT Height - - Body Mass Index 28.62 01/25/2023 0751 EDT documented in this encounter Miscellaneous Notes * Flowsheet Note - Melissa Crespo RN - 05/05/2023 1452 EDT 05/05/23 1119 Post-Hemodialysis Assessment Total Blood Processed (L) 88.67 Liters On Line Clearance: spKt/V 1.51 spKt/V Dialyzer Clearance Lightly streaked Treatment UFR (ml:kg:hr) 5.98 ml:kg:hr Final Critline Profile (%/hr) -2.78 Final Profile Profile A Critline refill Negative (h1: 33.0 h2: 32.9) Fluid Removed (L) 2.2 L Post-Dialysis Scale Weight 88.1 kg (194 lb 3.6 oz) Wheelchair Weight 0 kg (0 lb) Prosthesis Weight 1 kg (2 lb 3.3 oz) Post-Treatment Weight (kg) 87.1 Treatment Weight Change (kg) 2.1 kg Day Target Weight (kg) 87.5 Post Sitting/Lying BP 168/73 Post Sitting/Lying pulse 66 Post Standing BP 157/73 Post Standing Pulse 71 Temp 36.5 ??C [...] Patient Response to Treatment Tolerated tx. Removed 2200 UF goal. Stable upon DC from unit. Comments No issues during tx, No concerns voiced post tx. Refill Neg per Critline data. * Dialysis Rounding - Skye Gomez NP - 05/05/2023 0715 EDT Dialysis Provider's Routine Assessment The visit was conducted via telehealth (audio/video) between the [facility] dialysis unit and the provider from [...] to current prescriptions/orders: None No acute issues Skye Gomez NP documented in this encounter Plan of Treatment Upcoming Encounters Date Type Department Care Team (Late st Contact Info) Description 12/06/2024 6:45 EST Treatment [facility] [address] [place], [place] [phone] Carlota Jin MD [address] [place] [address], [address] [phone] 12/08/2024 6:45 EST Treatment [facility] [address] [place], [place] [id number] Carlota Jin MD 1 [facility], [facility] [address] [place] [phone] 12/11/2024 6:45 EST Treatment [facility] [address] [place], [place] [id number] Carlota Jin MD 1 [facility], [facility] 2 [place] [phone] 12/13/2024 6:45 EST Treatment [facility] [place] [address] [place], [place] [phone] Carlota Jin MD 1 [facility], [facility] 2 [place] [phone] 12/15/2024 6:45 EST Treatment [facility] [place] [address] [place], [place] [id number] Carlota Jin MD [address] [place] [address], [facility] [address] [place] [phone] 12/18/2024 6:45 EST Treatment [facility] [place] [address] [place], [place] [phone] Carlota Jin MD [address] [place] [address], [facility] [address] [place] [phone] 12/20/2024 6:45 EST Treatment [facility] [place] [address] [place], [place] [id number] Carlota Jin MD 1 [facility], [facility] 2 [place] [phone] 12/22/2024 6:45 EST Treatment [facility] [place] [address] [place], [place] [phone] Carlota Jin MD [address] [place] [address], [facility] [address] [place] [phone] 12/25/2024 6:45 EST Treatment [facility] [place] [address] [place], [place] [phone] Carlota Jin MD 1 [facility], [facility] 2 [place] [phone] 12/27/2024 6:45 EST Treatment [facility] [place] [address] [place], [place] [address] Carlota Jin MD [address] [facility], [facility] 2 [place] [phone] 12/29/2024 6:45 EST Treatment [facility] [place] [address] [place], [place] [id number] Carlota Jin MD 1 [facility], [facility] [address] [place] [phone] 01/01/2025 6:45 EDT Treatment [facility] [place] [address] [place], [place] [id number] Carlota Jin MD 1 [facility], [facility] [address] [place] [phone] 01/03/2025 6:45 EDT Treatment [facility] [address] [place] [address] Carlota Jin MD 1 [facility], [facility] 2 [place] [phone] 01/05/2025 6:45 EDT Treatment [facility] [address] [place], [place] [address] Carlota Jin MD 1 [facility], [facility] [address] [place] [phone] 01/08/2025 6:45 EDT Treatment [facility] [place] [address] [place], [place] [phone] Carlota Jin MD 1 [facility], [facility] 2 [place] [phone] 01/10/2025 6:45 EDT Treatment [facility] [place] [address] [place], [place] [phone] Carlota Jin MD 1 [facility], [facility] 2 [place] [phone] 01/12/2025 6:45 EDT Treatment [facility] [place] [address] [place] [address] Carlota Jin MD [address] [place] [address], [facility] [address] [place] [phone] 01/15/2025 6:45 EDT Treatment [facility] [place] [address] [place], [place] [phone] Carlota Jin MD [address] [place] [address], [facility] 2 [place] [phone] 01/17/2025 6:45 EDT Treatment [facility] [place] [address] [place], [place] [phone] Carlota Jin MD 1 [facility], [facility] 2 [place] [phone] 01/19/2025 6:45 EDT Treatment [facility] [place] [address] [place], [place] [phone] Carlota Jin MD [address] [facility], [facility] 2 [place] [phone] 01/22/2025 6:45 EDT Treatment [facility] [place] [address] [place], [place] [phone] Carlota Jin MD [address] [facility], [facility] 2 [place] [phone] 01/24/2025 6:45 EDT Treatment [facility] [place] [address] [place], [place] [phone] Carlota Jin MD 1 [facility], [facility] 2 [place] [phone] 01/26/2025 6:45 EDT Treatment [facility] [place] [address] [place], [place] [phone] Carlota Jin MD 1 [facility], [facility] [address] [place] [phone] 01/29/2025 6:45 EDT Treatment [facility] [place] [address] [place], [place] [phone] Carlota Jin MD 1 [facility], [facility] [address] [place] [phone] 01/31/2025 6:45 EDT Treatment [facility] [place] [address] [place], [place] [phone] Carlota Jin MD [address] [facility], [facility] 2 [place] [phone] 02/02/2025 6:45 EDT Treatment [facility] [place] [address] [place], [place] [phone] Carlota Jin MD 1 [facility], [facility] [address] [place] [phone] 02/05/2025 6:45 EDT Treatment [facility] [place] [address] [place], [place] [phone] Carlota Jin MD 1 [facility], [facility] [address] [place] [phone] 02/07/2025 6:45 EDT Treatment [facility] [place] [address] [place], [place] [phone] Carlota Jin MD 1 [facility], [facility] 2 [place] [phone] 02/09/2025 6:45 EDT Treatment [facility] [place] [address] [place], [place] [address] Carlota Jin MD 1 [facility], [facility] 2 [place] [phone] 02/12/2025 6:45 EDT Treatment [facility] [place] [address] [place], [place] [phone] Carlota Jin MD 1 [facility], [facility] 2 [place] [phone] 02/14/2025 6:45 EDT Treatment [facility] [place] [address] [place], [place] [phone] Carlota Jin MD [address] [facility], [facility] 2 [place] [phone] 02/16/2025 6:45 EDT Treatment [facility] [place] [address] [place], [place] [phone] Carlota Jin MD [address] [facility], [facility] 2 [place] [phone] 02/19/2025 6:45 EDT Treatment [facility] [address] [place], [place] [phone] Carlota Jin MD 1 [facility], [facility] 2 [place] [phone] 02/21/2025 6:45 EDT Treatment [facility] [address] [place], [place] [phone] Carlota Jin MD 1 [facility], [facility] [address] [place] [phone] documented as of this encounter Procedures Procedure Name Priority Date/Time Associated Diagnosis Comments COMPLETE BLOOD COUNT Routine 05/05/2023 7:13 EDT ESRD (end stage renal disease) ([facility]) HEMODIALYSIS Routine 05/05/2023 6:59 EDT ESRD (end stage renal disease) ([facility]) documented in this encounter Results * (ABNORMAL) COMPLETE BLOOD COUNT (05/05/2023 7:13 EDT) WBC 6.36 4.00 - 10.40 K/cmm 05/05/2023 21:06 EDT [facility] RBC 2.99(L) 4.36 - 5.78 M/cmm 05/05/2023 21:06 [facility] Hemoglobin 9.5(L) 13.8 - 17.3 g/dL 05/05/2023 21:06 [facility] HCT 28.7(L) 39.5 - 50.2 % 05/05/2023 21:06 [facility] MCV 96(H) 81 - 95 fL 05/05/2023 21:06 [facility] MCH 31.8 27.6 - 33.0 pg 05/05/2023 21:06 [facility] MCHC 33.1 32.8 - 36.4 g/dL 05/05/2023 21:06 [facility] RDW-CV 12.1 <14.2 % 05/05/2023 21:06 [facility] RDW-SD 42.0 <46.0 fl 05/05/2023 21:06 [facility] PLT 216 141 - 377 K/cmm 05/05/2023 21:06 [facility] MPV 11.7 9.5 - 12.7 fL 05/05/2023 21:06 [facility] Blood VENOUS BLOOD / Unknown Venipuncture / Unknown 05/05/2023 7:13 EDT 05/05/2023 7:14 EDT us Carlota Jin MD HEMATOLOGY & PF4 ORDERABL ES Final Result [facility] [address] [place] [address] documented in this encounter Visit Diagnoses Diagnosis ESRD (end stage renal disease) ([facility] Primary End stage renal disease Anemia of chronic renal failure, unspecified CKD stage Hypoalbuminemia Other disorders of plasma protein metabolism Secondary hyperparathyroidism ([facility]) Secondary hyperparathyroidism (of renal origin) documented in this encounter Administered Medications Inactive Administered Medications - up to 3 most recent administrations Medication Order MAR Action Action Date Dose Rate Site calcium carbonate (TUMS) tablet 500 mg (200 mg elemental calcium) 2 Tablet 2 Tablet, oral, ONCE IN DIALYSIS, 1 dose, On Wed05/05/23 at 0715, Routine, DialysisIndications:ESRD (end stage renal disease) ([facility]),Secondary hyperparathyroidism ([facility]) Given 05/05/2023 10:11 EDT 2 Tablets epoetin ken (EPOGEN) 20,000 unit/2 mL injection 500 Units 500 Units, intravenous, ONCE IN DIALYSIS, 1 dose, On Wed05/05/23 at 0715, Routine, DialysisIndications:ESRD (end stage renal disease) ([facility]),Anemia of chronic renal failure, unspecified CKD stage Given 05/05/2023 10:11 EDT 500 Units heparin injection 9,000 Units 9,000 Units, intravenous, ONCE IN DIALYSIS, 1 dose, On Wed05/05/23 at 0715, Routine, Dialysis, Now x1 bolus 4500 units to be given at the beginning of dialysis 1500 units/hour to be given over the course of dialysis (9000 units total). Stop 1 hour prior to end of treatment. To be administered per Policy [id number].Indications:ESRD (end stage renal disease) ([facility]) Given 05/05/2023 10:10 EDT 9,000 Units LiquaCel liquid protein liquid 30 mL 30 mL, oral, ONCE IN DIALYSIS, 1 dose, On Wed05/05/23 at 0715, RoutineIndications:Hypoalbuminemi a,ESRD (end stage renal disease) ([facility]) Given 05/05/2023 10:11 EDT 30 mL documented in this encounter Orders Dialysis Count Last Ordered Date First Orde red Date HEMODIALYSIS 1 05/05/2023 documented in this encounter Care Teams Brick Burner Relationship Specialty Start Date End Date Adeola Villegas APRN [id number] [place] [address] PCP - General 10/12/16 07/06/23 documented as of this encounter
--- OUTSIDE RECORDS SUMMARY | 2024-12-05 12:24 | XMS_ITS | Encounter Summary ---
Author Organization [facility] Address [address] [place] [address] Care Team Providers Care Account Associate Name Role Phone Adeola Villegas APRN Primary Care Provider [phone] Encounter Details Date Type Department Care Team (Latest Contact Info) Description 04/14/2023 7:15 EDT Treatment [facility] [address] [place] [address] Carlota Jin MD 1 [facility], Level [address] [place] [phone] ESRD (end stage renal disease) ([facility]) (Primary Dx); Hypoalbuminemia; Secondary hyperparathyroidism ([facility]) Social History Tobacco Use Types Packs/Day Years [...] - Temperature - - Respiratory Rate 16 04/14/2023 0658 EDT Oxygen Saturation - - Inhaled Oxygen Concentration - - Weight 89.7 kg (197 lb 12 oz) 04/14/2023 0658 ED T Height - - Body Mass Index 28.78 01/25/2023 0751 EDT documented in this encounter Miscellaneous Notes * Flowsheet Note - Melissa Crespo RN - 04/14/2023 1321 EDT 04/14/23 1126 Post-Hemodialysis Assessment Total Blood Processed (L) 90.35 Liters On Line Clearance: spKt/V 1.43 spKt/V Dialyzer Clearance Lightly streaked Final Critline Profile (%/hr) -2.58 Final Profile Profile A Critline refill Negative (31.8-31.9) Fluid Removed (L) 2.2 L Post-Dialysis Scale Weight 88.6 kg (195 lb 5.2 oz) Wheelchair Weight 0 kg (0 lb) Prosthesis Weight 1 kg (2 lb 3.3 oz) Post-Treatment Weight (kg) 87.6 Post Sitting/Lying BP 151/74 Post Sitting/Lying pulse 62 Post Standing BP 141/78 Post Standing Pulse 67 Temp 36.9 ??C (98.4 ??F) Temp src Skin Post access assessment AVF/AFG Hemostasis achieved Yes Orientation Alert and Oriented x3 Yes Cooperative Yes Disoriented No Discharge Ambulation Methods Ambulatory without assistance Wrap up items Patient Response to Treatment Tolerated tx. Removed 2200 UF goal. Stable upon DC from unit. Neg Refill per Critline. Comments No issues during tx, No concerns voiced post tx. documented in this encounter Plan of Treatment Upcoming Encounters Date Type Department Care Team (Late st Contact Info) Description 12/06/2024 6:45 EST Treatment [facility] [place] [address] [place] [address] Carlota Jin MD 1 [facility], [facility] [address] [place] [phone] 12/08/2024 6:45 EST Treatment [facility] [place] [address] [place] [address] Carlota Jin MD 1 [facility], [facility] [place] [phone] 12/11/2024 6:45 EST Treatment [facility] [place] [address] [place], [place] [id number] Carlota Jin MD 1 [facility], [address] [place] [phone] 12/13/2024 6:45 EST Treatment [facility] [place] [address] [place] [address] Carlota Jin MD 1 [facility], [facility] [address] [place] [phone] 12/15/2024 6:45 EST Treatment [facility] [place] [address] [place], [place] [address] [phone] Carlota Jin MD 1 [facility], [facility] [address] [place] [phone] 12/18/2024 6:45 EST Treatment [facility] [place] [address] [place] [address] Carlota Jin MD 1 [facility], [facility] [address] [place] [phone] 12/20/2024 6:45 EST Treatment [facility] [place] [address] [place], [place] [id number] Carlota Jin MD 1 [facility], [address] [place] [phone] 12/22/2024 6:45 EST Treatment [facility] [place] [address] [place], [place] [address] Carlota Jin MD 1 [facility], [facility] [place] [phone] 12/25/2024 6:45 EST Treatment [facility] [place] [address] [place], [place] [address] [phone] Carlota Jin MD 1 [facility], [address] [phone] 12/27/2024 6:45 EST Treatment [facility] [place] [address] [place], [place] [id number] Carlota Jin MD 1 [facility], [address] [phone] 12/29/2024 6:45 EST Treatment [facility] [place] [address] [place], [place] [id number] Carlota Jin MD 1 [facility], [address] [phone] 01/01/2025 6:45 EDT Treatment [facility] [place] [address] [place], [place] [id number] Carlota Jin MD 1 [facility], [address] [phone] 01/03/2025 6:45 EDT Treatment [facility] [place] [address] [place], [place] [id number] Carlota Jin MD 1 [facility], [facility] [address] [place] [phone] 01/05/2025 6:45 EDT Treatment [facility] [place] [address] [place], [place] [phone] Carlota Jin MD 1 [facility], [facility] [address] [place] [phone] 01/08/2025 6:45 EDT Treatment [facility] [place] [address] [place], [place] [phone] Carlota Jin MD 1 [facility], [facility] [address] [place] [phone] 01/10/2025 6:45 EDT Treatment [facility] [place] [address] [place] [address] Carlota Jin MD [address] [place] [address], [facility] [address] [place] [phone] 01/12/2025 6:45 EDT Treatment [facility] [place] [address] [place], [place] [phone] Carlota Jin MD 1 [facility], [facility] [address] [place] [phone] 01/15/2025 6:45 EDT Treatment [facility] [place] [address] [place], [place] [id number] Carlota Jin MD [address] [place] [address], [facility] [address] [place] [phone] 01/17/2025 6:45 EDT Treatment [facility] [place] [address] [place], [place] [address] Carlota Jin MD 1 [facility], [facility] [address] [place] [phone] 01/19/2025 6:45 EDT Treatment [facility] [place] [address] [place], [place] [phone] Carlota Jin MD 1 [facility], [facility] [address] [place] [phone] 01/22/2025 6:45 EDT Treatment [facility] [place] [address] [place], [place] [phone] Carlota Jin MD 1 [facility], [facility] [address] [place] [phone] 01/24/2025 6:45 EDT Treatment [facility] [place] [address] [place], [place] [phone] Carlota Jin MD 1 [facility], [address] [phone] 01/26/2025 6:45 EDT Treatment [facility] [place] [address] [place], [place] [phone] Carlota Jin MD 1 [facility], [facility] [address] [place] [phone] 01/29/2025 6:45 EDT Treatment [facility] [place] [address] [place], [place] [phone] Carlota Jin MD 1 [facility] [place] [phone] 01/31/2025 6:45 EDT Treatment [facility] [place] [address] [place], [place] [address] Carlota Jin MD 1 [facility], [facility] [place] [phone] 02/02/2025 6:45 EDT Treatment [facility] [place] [address] [place], [place] [phone] Carlota Jin MD 1 [facility], [facility] [place] [phone] 02/05/2025 6:45 EDT Treatment [facility] [place] [address] [place], [place] [phone] Carlota Jin MD 1 [facility], [facility] [address] [place] [phone] 02/07/2025 6:45 EDT Treatment [facility] [place] [address] [place] [address] Carlota Jin MD 1 [facility], [facility] [address] [place] [phone] 02/09/2025 6:45 EDT [facility] [address] [place], [place] [phone] Carlota Jin MD 1 [facility], [facility] [address] [place] [phone] 02/12/2025 6:45 EDT Treatment [facility] [place] [address] [place], [place] [phone] Carlota Jin MD 1 [facility], [address] [phone] 02/14/2025 6:45 EDT Treatment [facility] [place] [address] [place], [place] [phone] Carlota Jin MD [address] [place] [phone] 02/16/2025 6:45 EDT Treatment [facility] [place] [address] [place], [place] [phone] Carlota Jin MD 1 [facility], [address] [phone] 02/19/2025 6:45 EDT Treatment [facility] [place] [address] [place], [place] [phone] Carlota Jin MD [address] [phone] 02/21/2025 6:45 EDT Treatment [facility] [place] [address] [place], [place] [phone] Carlota Jin MD [address] [phone] documented as of this encounter Procedures Procedure Name Priority Date/Time Associated Diagnosis Comments COMPLETE BLOOD COUNT Routine 04/14/2023 7:02 EDT ESRD (end stage renal disease) ([facility]) HEMODIALYSIS Routine 04/14/2023 6:58 EDT ESRD (end stage renal disease) ([facility]) documented in this encounter Results * (ABNORMAL) COMPLETE BLOOD COUNT (04/14/2023 7:02 EDT) WBC 6.92 4.00 - 10.40 K/cmm 04/14/2023 21:08 [facility] RBC 2.93(L) 4.36 - 5.78 M/cmm 04/14/2023 21:08 [facility] Hemoglobin 9.3(L) 13.8 - 17.3 g/dL 04/14/2023 21:08 [facility] HCT 28.1(L) 39.5 - 50.2 % 04/14/2023 21:08 [facility] MCV 96(H) 81 - 95 fL 04/14/2023 21:08 [facility] MCH 31.7 27.6 - 33.0 pg 04/14/2023 21:08 [facility] MCHC 33.1 32.8 - 36.4 g/dL 04/14/2023 21:08 [facility] RDW-CV 12.2 <14.2 % 04/14/2023 21:08 [facility] RDW-SD 42.5 <46.0 fl 04/14/2023 21:08 [facility] PLT 235 141 - 377 K/cmm 04/14/2023 21:08 [facility] MPV 11.5 9.5 - 12.7 fL 04/14/2023 21:08 [facility] Blood VENOUS BLOOD / Unknown Venipuncture / Unknown 04/14/2023 7:02 EDT 04/14/2023 7:02 EDT us Carlota Jin MD HEMATOLOGY & PF4 ORDERABL ES Final Result [facility] [address] [place] [address] documented in this encounter Visit Diagnoses Diagnosis ESRD (end stage renal disease) ([facility])- Primary End stage renal disease Hypoalbuminemia Other disorders of plasma protein metabolism Secondary hyperparathyroidism ([facility]) Secondary hyperparathyroidism (of renal origin) documented in this encounter Administered Medications Inactive Administered Medications - up to 3 most recent administrations Medication Order MAR Action Action Date Dose Rate Site calcium carbonate (TUMS) tablet 500 mg (200 mg elemental calcium) 2 Tablet 2 Tablet, oral, ONCE IN DIALYSIS, 1 dose, On Wed04/14/23 at 0715, Routine, DialysisIndications:ESRD (end stage renal disease) ([facility]),Secondary hyperparathyroidism ([facility]) Given 04/14/2023 8:27 EDT 2 Tablets heparin injection 9,000 Units 9,000 Units, intravenous, ONCE IN DIALYSIS, 1 dose, On Wed04/14/23 at 0715, Routine, Dialysis, Now x1 bolus 4500 units to be given at the beginning of dialysis 1500 units/hour to be given over the course of dialysis (9000 units total). Stop 1 hour prior to end of treatment. To be administered per Policy [id number].Indications:ESRD (end stage renal disease) ([facility]) Given 04/14/2023 7:11 EDT 9,000 Units LiquaCel liquid protein liquid 30 mL 30 mL, oral, ONCE IN DIALYSIS, 1 dose, On Wed04/14/23 at 0715, RoutineIndications:Hypoalbuminemi a,ESRD (end stage renal disease) ([facility]) Given 04/14/2023 8:26 EDT 30 mL documented in this encounter Orders Dialysis Count Last Ordered Date First Orde red Date HEMODIALYSIS 1 04/14/2023 documented in this encounter Care Teams Account Associate Relationship Specialty Start Date End Date Adeola Villegas APRN [address] [place] [address] PCP - General 10/12/16 07/06/23 documented as of this encounter
--- OUTSIDE RECORDS SUMMARY | 2024-12-05 12:24 | XMS_ITS | Encounter Summary ---
Author Organization [facility] Address [address] [place] [address] Care Team Providers Care Manager Commercial Sales Name Role Phone Adeola Villegas MONA Primary Care Provider [phone] Encounter Details Date Type Department Care Team (Late st Contact Info) Description 05/02/2023 Documentation Visit [facility] [address] [place], [place] [address] Priya Quijano RD Social History Tobacco Use Types Packs/Day Years Used Date Smoking Tobacco: Every Day Cigarettes Smokeless Tobacco: Never PHQ-2 Answer Date Recorded PHQ-2 SUBTOTAL 1 01/27/2023 Sex and Gender Information Value Date Recorded Sex Assigned at Not on file Legal Sex Male 18:49 EST Gender Identity Male 07/07/2023 14:11 EDT Sexual Orientation Not on file documented as of this encounter Patient Instructions * Patient Instructions* Priya Quijano RD - 05/02/2023 9:52 EDT Dialysis Nutrition Labs for Gerson Bruner May 02, 2023 Proper nutrition is important for health. The following labs can be affected by what you eat and drink. Each person who receives dialysis has unique diet and nutrition needs. Your Dietitian has information available for you to help meet your specific nutrition concerns. Albumin: Target of 4.0 or higher: Lab Results Component Value Date LABALBU 3.3 (L) 04/26/2023 LABALBU 3.3 (L) 03/29/2023 Albumin is a protein in your blood. Levels can drop when you are not eating enough, when you have too much fluid or when you get sick. (Examples: infections, surgery, gum disease). High protein foodsinclude: meat, fish, poultry and eggs. Potassium: Target 4-5.5 Lab Results Component Value Date K 5.6 (H) 04/26/2023 K 5.2 (H) 03/29/2023 High levels can cause an irregular heartbeat, muscle weakness, and cardiac arrest. May be caused byeating foods high in potassium, missed or shortened dialysis treatments, constipation, or high blood sugar levels. Low levels can cause weakness, fatigue and abnormal heart rhythms. May be caused by poor food intake, vomiting, diarrhea. You may or may not need to limit potassium depending on your type of dialysistreatment. Calcium: Target 8.5-10.2 Lab Results Component Value Date CALCCA 9.5 04/26/2023 CALCCA 9.0 03/29/2023 High levels may cause confusion, muscle weakness, heart rhythm problems, constipation, nausea, vomiting, and loss of appetite. Low levels may cause cramping, tingling, muscle twitching, heart rhythm problems or seizures. A high phosphorus level can also cause a low calcium level. Calcium levels may be affected by certain medical conditions or medications. Phosphorus: Target between 3.5-5.5 Lab Results Component Value Date PHOS 7.2 (H) 04/26/2023 PHOS 8.1 (H) 03/29/2023 High levels can lead to ???hardening of the arteries?? and poor circulation leading to strokes andheart attacks. Skin bumps, itchiness, and weak bones may also occur. Low levels are uncommon but may be due to poor intake of food. Read labels carefully for phosphorusadditives. Common sources of phosphorus are processed foods, eb and dairy products. Take phosphorus binding medications as prescribed. Parathyroid hormone (PTH): Target 175-800 Lab Results Component Value Date PTH 369 (H) 04/26/2023 PTH 239 (H) 01/25/2023 PTH maintains the balance between calcium and phosphorus for bone health. Levels that are too high or too low can cause bone pain, fractures, and ???hardening of the arteries?? and heart problems. Controlling phosphorus levels is an important part of keeping PTH in the target range. Nutrition-Related Medications Prescribed: Phosphate Binder Medications sevelamer hydrochloride - 800 mg This patient does not have an active medication from one of the medication groupers. Medication To Lower Parathyroid Hormone (PTH) cholecalciferol (Vitamin D3) - 25 mcg (1,000 unit) sevelamer hydrochloride - 800 mg Recommendations: Your Dietitian is Priya Quijano RD documented in this encounter Plan of Treatment Upcoming Encounters Date Type Department Care Team (Late st Contact Info) Description 12/06/2024 6:45 EST Treatment [facility] - [place] [address] [place], [place] [id number] Carlota Jin MD [address] [place] [address] [phone] 12/08/2024 6:45 EST Treatment [facility] [place] [address] [place], [place] [id number] Carlota Jin MD [address] [place] [address], [address] [phone] 12/11/2024 6:45 EST Treatment [facility] [address] [place], [place] [id number] Carlota Jin MD [address] [place] [address], [facility] [address] [place] [phone] 12/13/2024 6:45 EST Treatment [facility] Dial[facility]i [facility] [address] [place], [place] [id number] Carlota Jin MD [address] [place] [address], [address] [phone] 12/15/2024 6:45 EST Treatment [facility] - [place] [address] [place], [place] [address] Carlota Jin MD [facility], [facility] [address] [place] [phone] 12/18/2024 6:45 EST Treatment [facility] - [place] [address] [place] [address] Carlota Jin MD 1 [facility], [facility] [address] [place] [phone] 12/20/2024 6:45 EST Treatment [facility] [place] [place] [address] [place], [place] [id number] Carlota Jin MD 1 [facility], [address] [phone] 12/22/2024 6:45 EST Treatment [facility] [place] [address] [place], [place] [id number] Carlota Jin MD 1 [facility], [address] [phone] 12/25/2024 6:45 EST Treatment [facility] [place] [address] [place], [place] [id number] Carlota Jin MD 1 [facility], [address] [phone] 12/27/2024 6:45 EST Treatment [facility] [place] [address] [place], [place] [id number] Carlota Jin MD 1 [facility], [facility] [address] [place] [phone] 12/29/2024 6:45 EST Treatment [facility] [place] [place] [address] [place], [place] [id number] Carlota Jin MD 1 [facility], [facility] [address] [place] [phone] 01/01/2025 6:45 EDT Treatment [facility] [place] - [place] [address] [place], [place] [id number] Carlota Jin MD 1 [facility], [address] [phone] 01/03/2025 6:45 EDT Treatment [facility] [place] [address] [place] [address] Carlota Jin MD [address] [place] [address], [address] [phone] 01/05/2025 6:45 EDT Treatment [facility] - [place] [address] [place], [place] [id number] Carlota Jin MD 1 [facility], [facility] [address] [place] [phone] 01/08/2025 6:45 EDT Treatment [facility] [place] [place] [address] [place], [place] [id number] Carlota Jin MD 1 [facility], [facility] [address] [place] [phone] 01/10/2025 6:45 EDT Treatment [facility] [place] [address] [place], [place] [address] Carlota Jin MD 1 [facility], [facility] [address] [place] [phone] 01/12/2025 6:45 EDT Treatment [facility] [place] [address] [place], [place] [id number] Carlota Jin MD 1 [facility], [facility] [address] [place] [phone] 01/15/2025 6:45 EDT Treatment [facility] [place] [place] [address] [place], [place] [id number] Carlota Jin MD 1 [facility], [facility] [address] [place] [phone] 01/17/2025 6:45 EDT Treatment [facility] - [place] [address] [place], [place] [id number] Carlota Jin MD 1 [facility], [facility] [address] [place] [phone] 01/19/2025 6:45 EDT Treatment [facility] [place] - [place] [address] [place], [place] [id number] Carlota Jin MD 1 [facility], [facility] [address] [place] [phone] 01/22/2025 6:45 EDT Treatment [facility] [place] - [place] [address] [place], [place] [id number] Carlota Jin MD 1 [facility], [facility] [address] [place] [phone] 01/24/2025 6:45 EDT Treatment [facility] [place] [address] [place], [place] [id number] Carlota Jin MD [facility], [facility] [address] [place] [phone] 01/26/2025 6:45 EDT Treatment [facility] [place] [address] [place], [place] [id number] Carlota Jin MD [facility], [facility] [address] [place] [phone] 01/29/2025 6:45 EDT Treatment [facility] [place] - [place] [address] [place], [place] [id number] Carlota Jin MD [facility], [facility] [address] [place] [phone] 01/31/2025 6:45 EDT Treatment [facility] [address] [place] [address] Carlota Jin MD [facility], [facility] [address] [place] [phone] 02/02/2025 6:45 EDT Treatment [facility] D[facility] [address] [place], [place] [id number] Carlota Jin MD [facility], [facility] [address] [place] [phone] 02/05/2025 6:45 EDT Treatment [facility] [place] - [place] [address] [place], [place] [id number] Carlota Jin MD 1 [facility], [facility] [address] [place] [phone] 02/07/2025 6:45 EDT Treatment [facility] [place] - [place] [address] [place], [place] [id number] Carlota Jin MD [address] [place] [address], [address] [phone] 02/09/2025 6:45 EDT Treatment [facility] [place] [address] [place], [place] [id number] Carlota Jin MD [address] [place] [address], [address] [phone] 02/12/2025 6:45 EDT Treatment [facility] [place] [address] [place], [place] [id number] Carlota Jin MD [address] [place] [address], [facility] [address] [place] [phone] 02/14/2025 6:45 EDT Treatment [facility] [place] - [place] [address] [place], [place] [id number] Carlota Jin MD 1 [facility], [facility] [address] [place] [phone] 02/16/2025 6:45 EDT Treatment [facility] - [place] [address] [place], [place] [id number] Carlota Jin MD 1 [facility], [facility] [address] [place] [phone] 02/19/2025 6:45 EDT Treatment [facility] [address] [place] [id number] Carlota Jin MD 1 [facility], [facility] [address] [place] [phone] 02/21/2025 6:45 EDT Treatment [facility] [address] [place] [id number] Carlota Jin MD [address] [place] [address], [facility] [address] [place] [phone] documented as of this encounter Visit Diagnoses Not on filedocumented in this encounter Care Teams Manager Commercial Sales Relationship Specialty Start Date End Date Adeola Villegas APRN Mohit [address] [facility] [address] [place], [place] [address] PCP - General 10/12/16 07/06/23 documented as of this encounter
--- OUTSIDE RECORDS SUMMARY | 2024-12-05 12:24 | XMS_ITS | Encounter Summary ---
Author Organization [facility] Address [address] [place] [address] Care Team Providers Care Laborer Landscape Name Role Phone Adeola Villegas APRN Primary Care Provider [phone] Encounter Details Date Type Department Care Team (Late st Contact Info) Description 04/14/2023 Orders Only [facility] [address] [place], [place] [id number] Shelley Eden, RD [address] [place] [address] Social History Tobacco Use Types Packs/Day Years [facility] [address] [place] [id number] Carlota Jin MD 1 [facility], Level [address] [place] [phone] 12/08/2024 6:45 EST Treatment [facility] [address] [place] [id number] Carlota Jin MD 1 [facility], [facility] [address] [place] [phone] 12/11/2024 6:45 EST Treatment [facility] [place] [address] [place], [place] [id number] Carlota Jin MD 1 [facility], [facility] 2 [place] [phone] 12/13/2024 6:45 EST Treatment [facility] D[place] - [place] [address] [place], [place] [id number] Calrota Jin MD 1 [facility], [facility] 2 [place] [phone] 12/15/2024 6:45 EST Treatment [facility] [place] [address] [place] [address] Carlota Jin MD 1 [facility], [facility] 2 [place] [phone] 12/18/2024 6:45 EST Treatment [facility] [place] [address] [place], [place] [id number] Carlota Jin MD 1 [facility], [facility] [address] [place] [phone] 12/20/2024 6:45 EST Treatment [facility] - [place] [address] [place], [place] [id number] Carlota Jin MD 1 [facility], [facility] 2 [place] [phone] 12/22/2024 6:45 EST Treatment [facility] [place] [address] [place], [place] [id number] Carlota Jin MD 1 [facility], [facility] 2 [place] [phone] 12/25/2024 6:45 EST Treatment [facility] [place] - [place] [address] [place], [place] [id number] Carlota Jin MD 1 [facility], [facility] 2 [place] [phone] 12/27/2024 6:45 EST Treatment [facility] [address] [place], [place] [id number] Carlota iJn MD [address] [place] [address], [facility] 2 [place] [phone] 12/29/2024 6:45 EST Treatment [facility] [address] [place], [place] [id number] Carloat Jin MD 1 [facility], [facility] 2 [place] [phone] 01/01/2025 6:45 EDT Treatment [facility] [place] [address] [place], [place] [id number] Carlota Jin MD 1 [facility], [facility] 2 [place] [phone] 01/03/2025 6:45 EDT Treatment [facility] [address] [place], [place] [id number] Carlota Jin MD 1 [facility], [facility] 2 [place] [phone] 01/05/2025 6:45 EDT Treatment [facility] [place] - [place] [address] [place], [place] [id number] Carlota Jin MD 1 [facility], [facility] 2 [place] [phone] 01/08/2025 6:45 EDT Treatment [facility] [place] [address] [place], [place] [id number] Carlota Jin MD 1 [facility], [address] [phone] 01/10/2025 6:45 EDT Treatment [facility] [place] [address] [place], [place] [id number] Carlota Jin MD 1 [facility], [address] [phone] 01/12/2025 6:45 EDT Treatment [facility] [place] [address] [place], [place] [id number] Carlota Jin MD 1 [facility], [facility] 2 [place] [phone] 01/15/2025 6:45 EDT Treatment [facility] [place] [address] [place], [place] [id number] Carlota Jin MD 1 [facility], [facility] 2 [place] [phone] 01/17/2025 6:45 EDT Treatment [facility] [place] [address] [place], [place] [id number] Carlota Jin MD 1 [facility], [facility] 2 [place] [phone] 01/19/2025 6:45 EDT Treatment [facility] - [place] [address] [place], [place] [id number] Carlota Jin MD 1 [facility], [facility] 2 [place] [phone] 01/22/2025 6:45 EDT Treatment [facility] - [place] [address] [place], [place] [address] Carlota Jin MD 1 [facility], [address] [phone] 01/24/2025 6:45 EDT Treatment [facility] [place] [address] [place], [place] [id number] Carlota Jin MD 1 [facility], [facility] 2 [place] [phone] 01/26/2025 6:45 EDT Treatment [facility] [place] [address] [place], [place] [id number] Carlota Jin MD 1 [facility], [facility] 2 [place] [phone] 01/29/2025 6:45 EDT Treatment [facility] [place] [address] [place], [place] [address] Carlota Jin MD 1 [facility], [facility] 2 [place] [phone] 01/31/2025 6:45 EDT Treatment [facility] [place] [place] [address] [place] [address] Carlota Jin MD 1 [facility], [address] [phone] 02/02/2025 6:45 EDT Treatment [facility] - [place] [address] [place], [place] [id number] Carlota Jin MD 1 [facility], [address] [phone] 02/05/2025 6:45 EDT Treatment [facility] [place] [address] [place] [address] Carlota Jin MD 1 [facility], [address] [phone] 02/07/2025 6:45 EDT Treatment [facility] [place] [address] [place], [place] [id number] Carlota Jin MD [address] [phone] 02/09/2025 6:45 EDT Treatment [facility] [place] - [place] [address] [place], [place] [id number] Carlota Jin MD 1 [facility], [facility] 2 [place] [phone] 02/12/2025 6:45 EDT Treatment [facility] - [place] [address] [place], [place] [id number] Carlota Jin MD 1 [facility], [facility] 2 [place] [phone] 02/14/2025 6:45 EDT Treatment [facility] - [place] [address] [place], [place] [id number] Carlota Jin MD 1 [facility], [address] [phone] 02/16/2025 6:45 EDT Treatment [facility] - [place] [address] [place], [place] [id number] Carlota Jin MD 1 [facility], [address] [phone] 02/19/2025 6:45 EDT Treatment [facility] - [place] [address] [place], [place] [id number] Carlota Jin MD 1 [facility], [address] [phone] 02/21/2025 6:45 EDT Treatment [facility] [place] [address] [place], [place] [id number] Carlota Jin MD 1 [facility], [facility] 2 [place] [phone] documented as of this encounter Visit Diagnoses Not on filedocumented in this encounter Care Teams Laborer Landscape Relationship Specialty Start Date End Date Adeola Villegas APRN [address] [place] [address] PCP - General 10/12/16 07/06/23 documented as of this encounter
--- OUTSIDE RECORDS SUMMARY | 2024-12-05 12:24 | XMS_ITS | Encounter Summary ---
Author Organization [facility] Address [address] [place] [address] Care Team Providers Care Technology Officer Name Role Phone Adeola Villegas MONA Primary Care Provider [phone] Encounter Details Date Type Department Care Team (Late st Contact Info) Description 04/12/2023 Documentation Visit [facility] Dialysi - [place] [address] [place] [address] Alexa Estrada, EXTRUDER OPERATOR VERTICAL [address] [place] [address] Social History Tobacco Use Types Packs/Day Years [...] Progress Notes * Alexa Estrada LICSW - 04/12/2023 1539 EDT General Manager's Monthly Assessment UPDATE: SW met with pt while on dialysis, pt engages minimally with this SW. SW will continue to offer services and support to pt, at this time no needs are noted by the pt. Current Living Situation: Lives with family and Lives with friends Lives with family Pt lives with his , Hoda, in their apartment in [place]. 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, [facility] [address] [place] [phone] 12/11/2024 6:45 EST Treatment [facility] Dialys[facility] - [place] [address] [place], [place] [id number] Carlota Jin MD 1 [facility], [facility] 2 [place] [phone] 12/13/2024 6:45 EST Treatment [facility] Dial[facility] - [place] [address] [place], [place] [id number] Carlota Jin MD 1 [facility], [address] [phone] 12/15/2024 6:45 EST Treatment [facility] Dialys[facility] - [place] [address] [place], [place] [id number] Carlota Jin MD 1 [facility], [facility] [address] [place] [phone] 12/18/2024 6:45 EST Treatment [facility] Dialysi - [place] [address] [place], [place] [id number] Carlota Jin MD 1 [facility], [facility] 2 [place] [phone] 12/20/2024 6:45 EST Treatment [facility] Dial[facility] - [place] [address] [place], [place] [id number] Carlota Jin MD 1 [facility], [facility] [address] [place] [phone] 12/22/2024 6:45 EST Treatment [facility] Dial[facility] - [place] [address] [place], [place] [id number] Carlota Jin MD 1 [facility], [facility] 2 [place] [phone] 12/25/2024 6:45 EST Treatment [facility] Dialys[facility] - [place] [address] [place] [address] Carlota Jin MD 1 [facility], [facility] [address] [place] [phone] 12/27/2024 6:45 EST Treatment [facility] Dialysi [facility] [address] [place], [place] [id number] Carlota Jin MD 1 [facility], [facility] [address] [place] [phone] 12/29/2024 6:45 EST Treatment [facility] Dial[facility]i [facility] [address] [place], [place] [id number] Carlota Jin MD 1 [facility], [facility] 2 [place] [phone] 01/01/2025 6:45 EDT Treatment [facility] Dialys[facility] - [place] [address] [place], [place] [address] Carlota Jin MD 1 [facility], [facility] [address] [place] [phone] 01/03/2025 6:45 EDT Treatment [facility] Dialysi - [place] [address] [place], [place] [id number] Carlota Jin MD 1 [facility], [facility] [address] [place] [phone] 01/05/2025 6:45 EDT Treatment [facility] Dialysi - [place] [address] [place], [place] [id number] Carlota Jin MD 1 [facility], [facility] 2 [place] [phone] 01/08/2025 6:45 EDT Treatment [facility] Dialys[facility] - [place] [address] [place], [place] [id number] Carlota Jin MD 1 [facility], [facility] [address] [place] [phone] 01/10/2025 6:45 EDT Treatment [facility] Dialysi - [place] [address] [place], [place] [id number] Carlota Jin MD 1 [facility], [facility] [address] [place] [phone] 01/12/2025 6:45 EDT Treatment [facility] Dialysi - [place] [address] [place], [place] [address] Carlota Jin MD 1 [facility], [facility] [address] [place] [phone] 01/15/2025 6:45 EDT Treatment [facility] Dialysi - [place] [address] [place], [place] [address] Carlota Jin MD 1 [facility], [facility] 2 [place] [phone] 01/17/2025 6:45 EDT Treatment [facility] Dialys[facility] - [place] [address] [place], [place] [id number] Carlota Jin MD 1 [facility], [facility] [address] [place] [phone] 01/19/2025 6:45 EDT Treatment [facility] Dialys[facility] - [place] [address] [place], [place] [address] Carlota Jin MD 1 [facility], [facility] [address] [place] [phone] 01/22/2025 6:45 EDT Treatment [facility] Dialys[facility] - [place] [address] [place], [place] [id number] Carlota Jin MD 1 [facility], [facility] [address] [place] [phone] 01/24/2025 6:45 EDT Treatment [facility] Dialysi - [place] [address] [place], [place] [address] Carlota Jin MD 1 [facility], [facility] 2 [place] [phone] 01/26/2025 6:45 EDT Treatment [facility] Dialysi - [place] [address] [place], [place] [id number] Carlota Jin MD 1 [facility], [facility] [address] [place] [phone] 01/29/2025 6:45 EDT Treatment [facility] Dialys[facility] - [place] [address] [place], [place] [id number] Carlota Jin MD 1 [facility], [facility] [address] [place] [phone] 01/31/2025 6:45 EDT Treatment [facility] Dialysi - [place] [address] [place], [place] [id number] Carlota Jin MD [address] [place] [address], [facility] [address] [place] [phone] 02/02/2025 6:45 EDT Treatment [facility] Dialysi - [place] [address] [place], [place] [address] Carlota Jin MD 1 [facility], [facility] 2 [place] [phone] 02/05/2025 6:45 EDT Treatment [facility] Dialysi - [place] [address] [place], [place] [address] Carlota Jin MD 1 [facility], [facility] [address] [place] [phone] 02/07/2025 6:45 EDT Treatment [facility] Dialysi - [place] [address] [place], [place] [address] Carlota Jin MD 1 [facility], [facility] [address] [place] [phone] 02/09/2025 6:45 EDT Treatment [facility] Dialysi - [place] [address] [place], [place] [id number] Carlota Jin MD 1 [facility], [facility] [address] [place] [phone] 02/12/2025 6:45 EDT Treatment [facility] Dialysi - [place] [address] [place], [place] [address] Carlota Jin MD 1 [facility], [facility] 2 [place] [phone] 02/14/2025 6:45 EDT Treatment [facility] Dialys[facility] - [place] [address] [place] [address] Carl[address] Jin MD 1 [facility], [facility] [address] [place] [phone] 02/16/2025 6:45 EDT Treatment [facility] Dialysi - [place] [address] [place] [address] Carl[address] Jin MD 1 [facility], [facility] [address] [place] [phone] 02/19/2025 6:45 EDT Treatment [facility] Dialysi - [place] [address] [place], [place] [address] Carlota Jin MD 1 [facility], [facility] 2 [place] [phone] 02/21/2025 6:45 EDT Treatment [facility] Dialysi - [place] [address] [place] [address] Carl[address] Jin MD 1 [facility], [address] [place] [phone] documented as of this encounter Visit Diagnoses Not on filedocumented in this encounter Care Teams Technology Officer Relationship Specialty Start Date End Date Adeola Villegas APRN [address] [facility] 1 [place], [place] [address] PCP - General 10/12/16 07/06/23 documented as of this encounter
--- OUTSIDE RECORDS SUMMARY | 2024-12-05 12:24 | XMS_ITS | Encounter Summary ---
Author Organization [facility] Address [address] [place] [address] Care Team Providers Care Supervisor Lead Burning Name Role Phone Adeola Villegas APRN Primary Care Provider [phone] Encounter Details Date Type Department Care Team (Latest Contact Info) Description 04/23/2023 7:15 EDT Treatment [facility] [address] [place] [address] Carlota Jin MD 1 [facility], Level 2 [place] [address] ESRD (end stage renal disease) ([facility]) (Primary Dx); Anemia of chronic renal failure, unspecified CKD stage; Hypoalbuminemia; Secondary hyperparathyroidism ([facility]) Social History Tobacco Use Types [...] - - Temperature - - Respiratory Rate - - Oxygen Saturation - - Inhaled Oxygen Concentration - - Weight 88.2 kg (194 lb 7.1 oz) 04/23/2023 0650 E DT Height - - Body Mass Index 28.3 01/25/2023 0751 EDT documented in this encounter Miscellaneous Notes * Flowsheet Note - Teto Ribeiro RN - 04/23/2023 1629 EDT 04/23/23 1129 Post-Hemodialysis Assessment Total Blood Processed (L) 85 Liters On Line Clearance: spKt/V 1.39 spKt/V Dialyzer Clearance Lightly streaked Treatment UFR (ml:kg:hr) 3 ml:kg:hr Fluid Removed (L) 1.5 L Post-Dialysis Scale Weight 88.1 kg (194 lb 3.6 oz) Wheelchair Weight 0 kg (0 lb) Prosthesis Weight 1 kg (2 lb 3.3 oz) (boots per notes) Post-Treatment Weight (kg) 87.1 Treatment Weight Change (kg) 1.1 kg Day Target Weight (kg) 87.2 Post Sitting/Lying BP 143/75 Post Sitting/Lying pulse 64 Post Standing BP 139/74 Post Standing Pulse 66 Temp 36.7 ??C (98.1 ??F) Temp src Skin Post access assessment AVF/AFG Hemostasis achieved Yes Orientation Alert and Oriented x3 Yes Time Yes Place Yes Person Yes Cooperative Yes Disoriented No Discharge Ambulation Methods Ambulatory without assistance Wrap up items Patient Response to Treatment Tolerated tx well, removed 1.5L Comments No issues per pt, no s/s of distress noted, VSS upon d/c documented in this encounter Plan of Treatment Upcoming Encounters Date Type Department Care Team (Late st Contact Info) Description 12/06/2024 6:45 EST Treatment [facility] Dialysi [facility] [address] [place], [place] [address] Carlota Jin MD [address] [phone] 12/08/2024 6:45 EST Treatment [facility] Dialys[facility] [address] [place] [address] Carlota Jin MD 1 [facility], [facility] 2 [place] [phone] 12/11/2024 6:45 EST Treatment [facility] Dialysi - [place] [address] [place], [place] [id number] Carlota Jin MD 1 [facility], [facility] 2 [place] [phone] 12/13/2024 6:45 EST Treatment [facility] Dialysi [facility] [address] [place], [place] [phone] Carlota Jin MD 1 [facility], [facility] 2 [place] [phone] 12/15/2024 6:45 EST Treatment [facility] [address] [place], [place] [phone] Carlota Jin MD 1 [facility], [facility] 2 [place] [phone] 12/18/2024 6:45 EST [facility] [address] [place] [address] Carlota Jin MD 1 [facility], [facility] 2 [place] [phone] 12/20/2024 6:45 EST Treatment [facility] Dialysi [facility] [address] [place], [place] [address] Carlota Jin MD 1 [facility], [facility] 2 [place] [phone] 12/22/2024 6:45 EST Treatment [facility] Dialysi - [place] [address] [place], [place] [address] Carlota Jin MD 1 [facility], [facility] 2 [place] [phone] 12/25/2024 6:45 EST Treatment [facility] Dialysi - [place] [address] [place], [place] [phone] Carlota Jin MD 1 [facility], [facility] 2 [place] [phone] 12/27/2024 6:45 EST Treatment [facility] Dialysi - [place] [address] [place], [place] [address] Carlota Jin MD 1 [facility], [facility] 2 [place] [phone] 12/29/2024 6:45 EST Treatment [facility] Dialysi - [place] [address] [place], [place] [phone] Carlota Jin MD 1 [facility], [facility] 2 [place] [phone] 01/01/2025 6:45 EDT Treatment [facility] Dialysi - [place] [address] [place], [place] [address] Carlota Jin MD 1 [facility], [facility] 2 [place] [phone] 01/03/2025 6:45 EDT Treatment [facility] Dialysi - [place] [address] [place], [place] [phone] Carlota Jin MD 1 [facility], [facility] 2 [place] [phone] 01/05/2025 6:45 EDT Treatment [facility] Dialysi - [place] [address] [place], [place] [address] Carlota Jin MD 1 [facility], [facility] 2 [place] [phone] 01/08/2025 6:45 EDT Treatment [facility] Dialysi - [place] [address] [place], [place] [phone] Carlota Jin MD 1 [facility], [facility] 2 [place] [phone] 01/10/2025 6:45 EDT Treatment [facility] Dialysi - [place] [address] [place], [place] [address] Carlota Jin MD 1 [facility], [facility] 2 [place] [phone] 01/12/2025 6:45 EDT Treatment [facility] Dialysi - [place] [address] [place] [address] Carlota Jin MD 1 [facility], [facility] 2 [place] [phone] 01/15/2025 6:45 EDT Treatment [facility] D[facility]ysi - [place] [address] [place], [place] [address] Calrota Jin MD 1 [facility], [facility] 2 [place] [phone] 01/17/2025 6:45 EDT Treatment [facility] D[facility] - [place] [address] [place], [place] [phone] Carlota Jin MD 1 [facility], [facility] 2 [place] [phone] 01/19/2025 6:45 EDT Treatment [facility] - [place] [address] [place], [place] [phone] Carlota Jin MD [address] [place] [address], [facility] 2 [place] [phone] 01/22/2025 6:45 EDT Treatment [facility] Dialysi - [place] [address] [place], [place] [phone] Carlota Jin MD [address] [place] [address], [address] [phone] 01/24/2025 6:45 EDT Treatment [facility] Dialysi - [place] [address] [place], [place] [address] Carlota Jin MD [address] [place] [address], [facility] 2 [place] [phone] 01/26/2025 6:45 EDT Treatment [facility] - [place] [address] [place], [place] [phone] Carlota Jin MD 1 [facility], [facility] 2 [place] [phone] 01/29/2025 6:45 EDT Treatment [facility] Dialysi - [place] [address] [place], [place] [phone] Carlota Jin MD 1 [facility], [facility] 2 [place] [phone] 01/31/2025 6:45 EDT Treatment [facility] D[facility] - [place] [address] [place], [place] [phone] Carlota Jin MD 1 [facility], [facility] 2 [place] [phone] 02/02/2025 6:45 EDT Treatment [facility] Dialysi - [place] [address] [place], [place] [phone] Carlota Jin MD 1 [facility], [facility] 2 [place] [phone] 02/05/2025 6:45 EDT Treatment [facility] - [place] [address] [place] [address] Carlota Jin MD 1 [facility], [facility] 2 [place] [phone] 02/07/2025 6:45 EDT Treatment [facility] D[facility]ys[facility] - [place] [address] [place] [address] Carlota Jin MD 1 [facility], [facility] 2 [place] [phone] 02/09/2025 6:45 EDT Treatment [facility] Dialysi - [place] [address] [place], [place] [phone] Carlota Jin MD 1 [facility], [facility] 2 [place] [phone] 02/12/2025 6:45 EDT Treatment [facility] Dialys[facility] [address] [place], [place] [phone] Carlota Jin MD 1 [facility], [address] [phone] 02/14/2025 6:45 EDT Treatment [facility] Dialysi [facility] [address] [place], [place] [phone] Carlota Jin MD 1 [facility], [address] [phone] 02/16/2025 6:45 EDT Treatment [facility] [address] [place], [place] [phone] Carlota Jin MD 1 [facility], [address] [phone] 02/19/2025 6:45 EDT Treatment [facility] Dialysi [facility] [address] [place], [place] [phone] Carlota Jin MD 1 [facility], [address] [phone] 02/21/2025 6:45 EDT Treatment [facility] Dialysi [facility] [address] [place], [place] [phone] Carlota Jin MD 1 [facility], [address] [phone] documented as of this encounter Procedures Procedure Name Priority Date/Time Associated Diagnosis Comments HEMODIALYSIS Routine 04/23/2023 6:56 EDT ESRD (end stage renal disease) ([facility]) documented in this encounter Visit Diagnoses Diagnosis ESRD (end stage renal disease) ([facility])- Primary End stage renal disease Anemia of chronic renal failure, unspecified CKD stage Hypoalbuminemia Other disorders of plasma protein metabolism Secondary hyperparathyroidism ([facility]) Secondary hyperparathyroidism (of renal origin) documented in this encounter Administered Medications Inactive Administered Medications - up to 3 most recent administrations Medication Order MAR Action Action Date Dose Rate Site calcium carbonate (TUMS) tablet 500 mg (200 mg elemental calcium) 2 Tablet 2 Tablet, oral, ONCE IN DIALYSIS, 1 dose, On Wed04/23/23 at 0715, Routine, DialysisIndications:ESRD (end stage renal disease) ([facility]),Secondary hyperparathyroidism ([facility]) Given 04/23/2023 8:22 EDT 2 Tablets epoetin ken (EPOGEN) 20,000 unit/2 mL injection 500 Units 500 Units, intravenous, ONCE IN DIALYSIS, 1 dose, On Wed04/23/23 at 0715, Routine, DialysisIndications:ESRD (end stage renal disease) ([facility]),Anemia of chronic renal failure, unspecified CKD stage Given 04/23/2023 8:21 EDT 500 Units heparin injection 9,000 Units 9,000 Units, intravenous, ONCE IN DIALYSIS, 1 dose, On Wed04/23/23 at 0715, Routine, Dialysis, Now x1 bolus 4500 units to be given at the beginning of dialysis 1500 units/hour to be given over the course of dialysis (9000 units total). Stop 1 hour prior to end of treatment. To be administered per Policy [id number].Indications:ESRD (end stage renal disease) ([facility]) Given 04/23/2023 7:15 EDT 9,000 Units LiquaCel liquid protein liquid 30 mL 30 mL, oral, ONCE IN DIALYSIS, 1 dose, On Wed04/23/23 at 0715, RoutineIndications:Hypoalbuminemi a,ESRD (end stage renal disease) ([facility]) Given 04/23/2023 8:22 EDT 30 mL documented in this encounter Orders Dialysis Count Last Ordered Date First Orde red Date HEMODIALYSIS 1 04/23/2023 documented in this encounter Care Teams Supervisor Lead Burning Relationship Specialty Start Date End Date Adeola Villegas APRN [address] [place] [address] PCP - General 10/12/16 07/06/23 documented as of this encounter
--- OUTSIDE RECORDS SUMMARY | 2024-12-05 12:24 | XMS_ITS | Encounter Summary ---
Author Organization [facility] Address [address] [place] [address] Care Team Providers Care Forming Roll Operator Heavy Duty Name Role Phone Adeola Villegas APRN Primary Care Provider [phone] Encounter Details Date Type Department Care Team (Latest Contact Info) Description 04/30/2023 7:15 EDT Treatment [facility] [address] [place] [address] Carlota Jin MD 1 [facility], [address] [place] [phone] ESRD (end stage renal disease) ([facility]) (Primary Dx); Anemia of chronic renal failure, unspecified CKD stage; Hypoalbuminemia; Secondary hyperparathyroidism ([facility]) Social History Tobacco Use Types [...] - Temperature - - Respiratory Rate 16 04/30/2023 0710 EDT Oxygen Saturation - - Inhaled Oxygen Concentration - - Weight 90.2 kg (198 lb 13.7 oz) 04/30/2023 0710 EDT Height - - Body Mass Index 28.94 01/25/2023 0751 EDT documented in this encounter Miscellaneous Notes * Flowsheet Note - Melissa Crespo RN - 04/30/2023 1635 EDT 04/30/23 1119 Post-Hemodialysis Assessment Total Blood Processed (L) 88.42 Liters On Line Clearance: spKt/V 1.49 spKt/V Dialyzer Clearance Lightly streaked Fluid Removed (L) 2.7 L Post-Dialysis Scale Weight 88.6 kg (195 lb 5.2 oz) Wheelchair Weight 0 kg (0 lb) Prosthesis Weight 0.9 kg (1 lb 15.8 oz) Post-Treatment Weight (kg) 87.7 Post Sitting/Lying BP 142/76 Post Sitting/Lying pulse 74 Post Standing BP 134/73 Post Standing Pulse 78 Temp 36.5 ??C (97.7 ??F) Temp src Temporal Post access assessment AVF/AFG Hemostasis achieved Yes Orientation Alert and Oriented x3 Yes Time Yes Place Yes Person Yes Cooperative Yes Disoriented No Discharge Ambulation Methods Ambulatory without assistance Wrap up items Patient Response to Treatment Tolerated tx. Removed 2700 UF goal. Stable upon DC from unit. Comments No issues during tx, No concerns voiced post tx. documented in this encounter Plan of Treatment Upcoming Encounters Date Type Department Care Team (Late st Contact Info) Description 12/06/2024 6:45 EST Treatment [facility] [address] [place] [phone] Carlota Jin MD [address] [place] [address], [facility] [address] [place] [phone] 12/08/2024 6:45 EST Treatment [facility] [address] [place] [phone] Carlota Jin MD [address] [place] [address], [facility] [address] [place] [phone] 12/11/2024 6:45 EST Treatment [facility] - [place] [address] [place], [place] [id number] Carlota Jin MD 1 [facility], [facility] [address] [place] [phone] 12/13/2024 6:45 EST Treatment [facility] - [place] [address] [place], [place] [id number] Carlota Jin MD 1 [facility], [facility] [address] [place] [phone] 12/15/2024 6:45 EST Treatment [facility] - [place] [address] [place] [address] Carlota Jin MD 1 [facility], [facility] [address] [place] [phone] 12/18/2024 6:45 EST Treatment [facility] - [place] [address] [place], [place] [id number] Carlota Jin MD 1 [facility], [facility] [address] [place] [phone] 12/20/2024 6:45 EST Treatment [facility] - [place] [address] [place], [place] [id number] Carlota Jin MD 1 [facility], [facility] [address] [place] [phone] 12/22/2024 6:45 EST Treatment [facility] - [place] [address] [place], [place] [id number] Carlota Jin MD 1 [facility], [address] [place] [phone] 12/25/2024 6:45 EST Treatment [facility] - [place] [address] [place], [place] [id number] Carlota Jin MD 1 [facility], [facility] [address] [place] [phone] 12/27/2024 6:45 EST Treatment [facility] [address] [place] [address] Carlota Jin MD 1 [facility], [facility] [address] [place] [phone] 12/29/2024 6:45 EST Treatment [facility] [address] [place] [address] Carlota Jin MD 1 [facility], [facility] [address] [place] [phone] 01/01/2025 6:45 EDT Treatment [facility] [address] [place] [address] Carlota Jin MD 1 [facility], [facility] [address] [place] [phone] 01/03/2025 6:45 EDT Treatment [facility] [address] [place], [place] [id number] Carlota Jin MD 1 [facility], [facility] [address] [place] [phone] 01/05/2025 6:45 EDT Treatment [facility] - [place] [address] [place], [place] [phone] Carlota Jin MD 1 [facility], [facility] [address] [place] [phone] 01/08/2025 6:45 EDT Treatment [facility] - [place] [address] [place], [place] [id number] Carlota Jin MD 1 [facility], [facility] [address] [place] [phone] 01/10/2025 6:45 EDT Treatment [facility] - [place] [address] [place] [address] Carlota Jin MD [address] [place] [address], [facility] [address] [place] [phone] 01/12/2025 6:45 EDT Treatment [facility] - [place] [address] [place], [place] [phone] Carlota Jin MD [address] [place] [address], [facility] [address] [place] [phone] 01/15/2025 6:45 EDT Treatment [facility] - [place] [address] [place], [place] [phone] Carlota Jin MD 1 [facility], [facility] [address] [place] [phone] 01/17/2025 6:45 EDT Treatment [facility] - [place] [address] [place], [place] [phone] Carlota Jin MD 1 [facility], [facility] [address] [place] [phone] 01/19/2025 6:45 EDT Treatment [facility] - [place] [address] [place], [place] [phone] Carlota Jin MD 1 [facility], [facility] [address] [place] [phone] 01/22/2025 6:45 EDT Treatment [facility] [place] [address] [place] [address] Carlota Jin MD 1 [facility], [address] [phone] 01/24/2025 6:45 EDT Treatment [facility] [place] [address] [place], [place] [phone] Carlota Jin MD 1 [facility], [address] [phone] 01/26/2025 6:45 EDT Treatment [facility] [place] [address] [place] [address] Carlota Jin MD 1 [facility], [facility] [address] [place] [phone] 01/29/2025 6:45 EDT Treatment [facility] [place] [address] [place], [place] [phone] Carlota Jin MD 1 [facility], [facility] [address] [place] [phone] 01/31/2025 6:45 EDT Treatment [facility] [place] [address] [place], [place] [id number] Carlota Jin MD 1 [facility], [facility] [address] [place] [phone] 02/02/2025 6:45 EDT Treatment [facility] [place] [address] [place], [place] [phone] Carlota Jin MD 1 [facility], [facility] [address] [place] [phone] 02/05/2025 6:45 EDT Treatment [facility] [place] [address] [place], [place] [id number] Carlota Jin MD 1 [facility], [address] [phone] 02/07/2025 6:45 EDT Treatment [facility] [place] [address] [place], [place] [id number] Carlota Jin MD 1 [facility], [facility] [address] [place] [phone] 02/09/2025 6:45 EDT Treatment [facility] [place] [address] [place], [place] [phone] Carlota Jin MD 1 [facility], [facility] [address] [place] [phone] 02/12/2025 6:45 EDT Treatment [facility] [place] [address] [place], [place] [id number] Carlota Jin MD 1 [facility], [address] [phone] 02/14/2025 6:45 EDT Treatment [facility] [address] [place], [place] [phone] Carlota Jin MD 1 [facility], [address] [phone] 02/16/2025 6:45 EDT Treatment [facility] [address] [place] [phone] Carlota Jin MD 1 [facility], [address] [phone] 02/19/2025 6:45 EDT Treatment [facility] [address] [place], [place] [phone] Carlota Jin MD 1 [facility], [address] [phone] 02/21/2025 6:45 EDT Treatment [facility] [address] [place], [place] [phone] Carlota Jin MD [address] [phone] documented as of this encounter Procedures Procedure Name Priority Date/Time Associated Diagnosis Comments HEMODIALYSIS Routine 04/30/2023 7:10 EDT ESRD (end stage renal disease) ([facility]) documented in this encounter Visit Diagnoses Diagnosis ESRD (end stage renal disease) ([facility])- Primary End stage renal disease Anemia of chronic renal failure, unspecified CKD stage Hypoalbuminemia Other disorders of plasma protein metabolism Secondary hyperparathyroidism ([facility]) Secondary hyperparathyroidism (of renal origin) documented in this encounter Administered Medications Inactive Administered Medications - up to 3 most recent administrations Medication Order MAR Action Action Date Dose Rate Site calcium carbonate (TUMS) tablet 500 mg (200 mg elemental calcium) 2 Tablet 2 Tablet, oral, ONCE IN DIALYSIS, 1 dose, On Wed04/30/23 at 0730, Routine, DialysisIndications:ESRD (end stage renal disease) (HCC-CMS),Secondary hyperparathyroidism (HCC-CMS) Given 04/30/2023 8:59 EDT 2 Tablets epoetin ken (EPOGEN) 20,000 unit/2 mL injection 500 Units 500 Units, intravenous, ONCE IN DIALYSIS, 1 dose, On Wed04/30/23 at 0730, Routine, DialysisIndications:ESRD (end stage renal disease) ([facility]),Anemia of chronic renal failure, unspecified CKD stage Given 04/30/2023 8:58 EDT 500 Units heparin injection 9,000 Units 9,000 Units, intravenous, ONCE IN DIALYSIS, 1 dose, On Wed04/30/23 at 0730, Routine, Dialysis, Now x1 bolus 4500 units to be given at the beginning of dialysis 1500 units/hour to be given over the course of dialysis (9000 units total). Stop 1 hour prior to end of treatment. To be administered per Policy [id number].Indications:ESRD (end stage renal disease) ([facility]) Given 04/30/2023 7:18 EDT 9,000 Units LiquaCel liquid protein liquid 30 mL 30 mL, oral, ONCE IN DIALYSIS, 1 dose, On Wed04/30/23 at 0730, RoutineIndications:Hypoalbuminemi a,ESRD (end stage renal disease) ([facility]) Given 04/30/2023 8:59 EDT 30 mL documented in this encounter Orders Dialysis Count Last Ordered Date First Orde red Date HEMODIALYSIS 1 04/30/2023 documented in this encounter Care Teams Forming Roll Operator Heavy Duty Relationship Specialty Start Date End Date Adeola Villegas APRN [address] [place] [address] PCP - General 10/12/16 07/06/23 documented as of this encounter
--- OUTSIDE RECORDS SUMMARY | 2024-12-05 12:24 | XMS_ITS | Encounter Summary ---
Author Organization [facility] Address [address] [place] [address] Care Team Providers Care Continuous Improvement Black Belt Name Role Phone Adeola Villegas MONA Primary Care Provider [phone] Encounter Details Date Type Department Care Team (Latest Contact Info) Description 04/28/2023 7:15 EDT Treatment [facility] [address] [place] [address] Carlota Jin MD 1 [facility], Level 2 [place] [address] ESRD (end stage renal disease) ([facility]) (Primary Dx); Anemia of chronic renal failure, unspecified CKD stage; Hypoalbuminemia; Secondary hyperparathyroidism ([facility]) Social History Tobacco [...] - Temperature - - Respiratory Rate 18 04/28/2023 1112 EDT Oxygen Saturation - - Inhaled Oxygen Concentration - - Weight 90.3 kg (199 lb 1.2 oz) 04/28/2023 0642 E DT Height - - Body Mass Index 28.98 01/25/2023 0751 EDT documented in this encounter Miscellaneous Notes * Flowsheet Note - Melissa Crespo RN - 04/28/2023 1246 EDT 04/28/23 1112 Post-Hemodialysis Assessment Total Blood Processed (L) 87.56 Liters On Line Clearance: spKt/V 1.46 spKt/V Dialyzer Clearance Lightly streaked Treatment UFR (ml:kg:hr) 7.41 ml:kg:hr Critline refill Not done Fluid Removed (L) 2.8 L Post-Dialysis Scale Weight 88.6 kg (195 lb 5.2 oz) Wheelchair Weight 0 kg (0 lb) Prosthesis Weight 0.9 kg (1 lb 15.8 oz) Post-Treatment Weight (kg) 87.7 Treatment Weight Change (kg) 2.6 kg Day Target Weight (kg) 88 Post Sitting/Lying BP 165/83 Post Sitting/Lying pulse 66 Post Standing BP 141/71 Post Standing Pulse 67 Temp 36.4 ??C (97.5 ??F) Temp src Temporal Resp 18 Post access assessment Bruit present: Yes Thrill Present AVF/AFG Hemostasis achieved Yes Note Patient held for 10mins with blue clamps Orientation Alert and Oriented x3 Yes Time Yes Place Yes Person Yes Cooperative Yes Disoriented No Discharge Ambulation Methods Ambulatory without assistance Wrap up items Patient Response to Treatment Very restless today - Pt states it is because he did not sleep well last night. Removed 2800 UF goal. Stable upon DC from unit. Comments No issues during tx, No concerns voiced post tx. documented in this encounter Plan of Treatment Upcoming Encounters Date Type Department Care Team (Late st Contact Info) Description 12/06/2024 6:45 EST Treatment [facility] [place] [address] [place] [address] Carlota Jin MD 1 [facility] Level [address] [place] [address] 12/08/2024 6:45 EST Treatment [facility] [place] [address] [place], [place] [address] Carlota Jin MD 1 [facility], [facility] [place] [phone] 12/11/2024 6:45 EST Treatment [facility] [place] [address] [place], [place] [phone] Carlota Jin MD 1 [facility], [facility] 2 [place] [phone] 12/13/2024 6:45 EST Treatment [facility] [place] [address] [place], [place] [id number] Carlota Jin MD 1 [facility], [facility] 2 [place] [phone] 12/15/2024 6:45 EST Treatment [facility] [place] [address] [place], [place] [phone] Carlota Jin MD 1 [facility], [facility] 2 [place] [phone] 12/18/2024 6:45 EST Treatment [facility] [place] [address] [place], [place] [phone] Carlota Jin MD 1 [facility], [facility] 2 [place] [phone] 12/20/2024 6:45 EST Treatment [facility] [place] [address] [place], [place] [id number] Carlota Jin MD 1 [facility], [facility] 2 [place] [phone] 12/22/2024 6:45 EST Treatment [facility] [place] [address] [place], [place] [phone] Carlota Jin MD 1 [facility], [facility] 2 [place] [phone] 12/25/2024 6:45 EST Treatment [facility] [place] [address] [place], [place] [id number] Carlota Jin MD 1 [facility], [facility] 2 [place] [phone] 12/27/2024 6:45 EST Treatment [facility] [place] [address] [place], [place] [phone] Carlota Jin MD 1 [facility], [address] [phone] 12/29/2024 6:45 EST [facility] [address] [place], [place] [id number] Carlota Jin MD 1 [facility], [facility] 2 [place] [phone] 01/01/2025 6:45 EDT Treatment [facility] [address] [place], [place] [phone] Cralota Jin MD 1 [facility], [facility] 2 [place] [phone] 01/03/2025 6:45 EDT Treatment [facility] [place] [address] [place], [place] [id number] Carlota Jin MD 1 [facility], [facility] 2 [place] [phone] 01/05/2025 6:45 EDT Treatment [facility] [place] [address] [place], [place] [phone] Carlota Jin MD 1 [facility], [address] [phone] 01/08/2025 6:45 EDT Treatment [facility] [place] [address] [place], [place] [phone] Carlota Jin MD 1 [facility], [address] [phone] 01/10/2025 6:45 EDT Treatment [facility] [place] [address] [place], [place] [phone] Carlota Jin MD 1 [facility], [address] [phone] 01/12/2025 6:45 EDT Treatment [facility] [place] [address] [place], [place] [phone] Carlota Jin MD 1 [facility], [address] [phone] 01/15/2025 6:45 EDT Treatment [facility] [place] [address] [place], [place] [id number] Carlota Jin MD 1 [facility], Level [address] [place] [phone] 01/17/2025 6:45 EDT Treatment [facility] [place] [address] [place], [place] [address] Carlota Jin MD 1 [facility], [facility] 2 [place] [phone] 01/19/2025 6:45 EDT Treatment [facility] [place] [address] [place], [place] [phone] Carlota Jin MD 1 [facility], [facility] 2 [place] [phone] 01/22/2025 6:45 EDT Treatment [facility] [place] [address] [place], [place] [phone] Carlota Jin MD 1 [facility], [facility] 2 [place] [phone] 01/24/2025 6:45 EDT [facility] [address] [place], [place] [phone] Carlota Jin MD 1 [facility], [facility] 2 [place] [phone] 01/26/2025 6:45 EDT Treatment [facility] [address] [place], [place] [phone] Carlota Jin MD 1 [facility], [facility] 2 [place] [phone] 01/29/2025 6:45 EDT Treatment [facility] [place] [address] [place], [place] [phone] Carlota Jin MD 1 [facility], [facility] 2 [place] [phone] 01/31/2025 6:45 EDT Treatment [facility] [place] [address] [place], [place] [phone] Carlota Jin MD 1 [facility], [facility] 2 [place] [phone] 02/02/2025 6:45 EDT Treatment [facility] [place] [address] [place], [place] [phone] Carlota Jin MD [address] [place] [address], [facility] 2 [place] [phone] 02/05/2025 6:45 EDT Treatment [facility] [place] [address] [place], [place] [phone] Carlota Jin MD [address] [place] [address], [facility] 2 [place] [phone] 02/07/2025 6:45 EDT Treatment [facility] [place] [address] [place], [place] [phone] Carlota Jin MD 1 [facility], [facility] 2 [place] [phone] 02/09/2025 6:45 EDT Treatment [facility] [place] [address] [place], [place] [phone] Carlota Jin MD 1 [facility], [facility] 2 [place] [phone] 02/12/2025 6:45 EDT Treatment [facility] [place] [address] [place], [place] [phone] Carlota Jin MD 1 [facility], [facility] 2 [place] [phone] 02/14/2025 6:45 EDT Treatment [facility] [place] [address] [place], [place] [phone] Carlota Jin MD 1 [facility], [address] [phone] 02/16/2025 6:45 EDT Treatment [facility] [place] [address] [place], [place] [phone] Carlota Jin MD 1 [facility], [address] [phone] 02/19/2025 6:45 EDT Treatment [facility] [place] [address] [place], [place] [phone] Carlota Jin MD 1 [facility], [facility] 2 [place] [phone] 02/21/2025 6:45 EDT Treatment [facility] [place] [address] [place], [place] [phone] Carlota Jin MD 1 [facility], [facility] 2 [place] [phone] documented as of this encounter Procedures Procedure Name Priority Date/Time Associated Diagnosis Comments COMPLETE BLOOD COUNT Routine 04/28/2023 6:57 EDT ESRD (end stage renal disease) ([facility]) HEMODIALYSIS Routine 04/28/2023 6:56 EDT ESRD (end stage renal disease) ([facility]) documented in this encounter Results * (ABNORMAL) COMPLETE BLOOD COUNT (04/28/2023 6:57 EDT) WBC 6.39 4.00 - 10.40 K/cmm 04/28/2023 21:34 [facility] RBC 3.00(L) 4.36 - 5.78 M/cmm 04/28/2023 21:34 [facility] Hemoglobin 9.5(L) 13.8 - 17.3 g/dL 04/28/2023 21:34 [facility] HCT 28.7(L) 39.5 - 50.2 % 04/28/2023 21:34 [facility] MCV 96(H) 81 - 95 fL 04/28/2023 21:34 [facility] MCH 31.7 27.6 - 33.0 pg 04/28/2023 21:34 [facility] MCHC 33.1 32.8 - 36.4 g/dL 04/28/2023 21:34 [facility] RDW-CV 12.1 <14.2 % 04/28/2023 21:34 [facility] RDW-SD 42.2 <46.0 fl 04/28/2023 21:34 [facility] PLT 227 141 - 377 K/cmm 04/28/2023 21:34 [facility] MPV 12.1 9.5 - 12.7 fL 04/28/2023 21:34 [facility] Blood VENOUS BLOOD / Unknown Venipuncture / Unknown 04/28/2023 6:57 EDT 04/28/2023 6:57 EDT us Carlota Jin MD HEMATOLOGY & PF4 ORDERABL ES Final Result [facility] [address] [place] [address] documented in this encounter Visit Diagnoses Diagnosis ESRD (end stage renal disease) ([facility])- Primary End stage renal disease Anemia of chronic renal failure, unspecified CKD stage Hypoalbuminemia Other disorders of plasma protein metabolism Secondary hyperparathyroidism ([facility]) Secondary hyperparathyroidism (of renal origin) documented in this encounter Administered Medications Inactive Administered Medications - up to 3 most recent administrations Medication Order MAR Action Action Date Dose Rate Site calcium carbonate (TUMS) tablet 500 mg (200 mg elemental calcium) 2 Tablet 2 Tablet, oral, ONCE IN DIALYSIS, 1 dose, On Wed04/28/23 at 0715, Routine, DialysisIndications:ESRD (end stage renal disease) ([facility]),Secondary hyperparathyroidism ([facility]) Given 04/28/2023 8:01 EDT 2 Tablets epoetin ken (EPOGEN) 20,000 unit/2 mL injection 500 Units 500 Units, intravenous, ONCE IN DIALYSIS, 1 dose, On Wed04/28/23 at 0715, Routine, DialysisIndications:ESRD (end stage renal disease) ([facility]),Anemia of chronic renal failure, unspecified CKD stage Given 04/28/2023 8:01 EDT 500 Units heparin injection 9,000 Units 9,000 Units, intravenous, ONCE IN DIALYSIS, 1 dose, On Wed04/28/23 at 0715, Routine, Dialysis, Now x1 bolus 4500 units to be given at the beginning of dialysis 1500 units/hour to be given over the course of dialysis (9000 units total). Stop 1 hour prior to end of treatment. To be administered per Policy [id number].Indications:ESRD (end stage renal disease) ([facility]) Given 04/28/2023 7:12 EDT 9,000 Units LiquaCel liquid protein liquid 30 mL 30 mL, oral, ONCE IN DIALYSIS, 1 dose, On Wed04/28/23 at 0715, RoutineIndications:Hypoalbuminemi a,ESRD (end stage renal disease) ([facility]) Given 04/28/2023 8:01 EDT 30 mL documented in this encounter Orders Dialysis Count Last Ordered Date First Orde red Date HEMODIALYSIS 1 04/28/2023 documented in this encounter Care Teams Continuous Improvement Black Belt Relationship Specialty Start Date End Date Adeola Villegas APRN [address] [place] [address] PCP - General 10/12/16 07/06/23 documented as of this encounter
--- OUTSIDE RECORDS SUMMARY | 2024-12-05 12:24 | XMS_ITS | Encounter Summary ---
Author Organization [facility] Address [address] [place] [address] Care Team Providers Care Acid Pumper Name Role Phone Adeola Villegas APRN Primary Care Provider [phone] Encounter Details Date Type Department Care Team (Late st Contact Info) Description 04/12/2023 Documentation Visit [facility] [address] [place], [place] [phone] Melissa Crespo, RN Social History Tobacco Use [...] 6:45 EST Treatment [facility] [address] [place] [address] Carlota Jin MD 1 [facility], Level [address] [place] [address] 12/08/2024 6:45 EST Treatment [facility] [address] [place] [address] Carlota Jin MD 1 [facility], [facility] 2 [place] [phone] 12/11/2024 6:45 EST Treatment [facility] [place] [address] [place], [place] [address] Carlota Jin MD 1 [facility], [facility] 2 [place] [phone] 12/13/2024 6:45 EST Treatment [facility] [place] [address] [place], [place] [phone] Carlota Jin MD 1 [facility], [facility] 2 [place] [phone] 12/15/2024 6:45 EST Treatment [facility] [place] [address] [place], [place] [phone] Carlota Jin MD [address] [facility], [facility] 2 [place] [phone] 12/18/2024 6:45 EST Treatment [facility] [address] [place] [address] Carlota Jin MD 1 [facility], [facility] 2 [place] [phone] 12/20/2024 6:45 EST Treatment [facility] [place] [address] [place], [place] [phone] Carlota Jin MD 1 [facility], [facility] 2 [place] [phone] 12/22/2024 6:45 EST Treatment [facility] [place] [address] [place], [place] [phone] Carlota Jin MD [address] [facility], [facility] 2 [place] [phone] 12/25/2024 6:45 EST Treatment [facility] [place] [address] [place], [place] [phone] Carlota Jin MD 1 [facility], [facility] 2 [place] [phone] 12/27/2024 6:45 EST Treatment [facility] [place] [address] [place], [place] [phone] Carlota Jin MD 1 [facility], [facility] 2 [place] [phone] 12/29/2024 6:45 EST Treatment [facility] [place] [address] [place], [place] [phone] Carlota Jin MD 1 [facility], [facility] 2 [place] [phone] 01/01/2025 6:45 EDT Treatment [facility] [place] [address] [place], [place] [id number] Carlota Jin MD 1 [facility], [facility] 2 [place] [phone] 01/03/2025 6:45 EDT Treatment [facility] [place] [address] [place], [place] [phone] Carlota Jin MD 1 [facility], [address] [place] [phone] 01/05/2025 6:45 EDT Treatment [facility] [place] [address] [place], [place] [address] Carlota Jin MD 1 [facility], [facility] 2 [place] [phone] 01/08/2025 6:45 EDT Treatment [facility] [place] [address] [place], [place] [id number] Carlota Jin MD 1 [facility], [facility] 2 [place] [phone] 01/10/2025 6:45 EDT Treatment [facility] [place] [address] [place] [address] Carlota Jin MD 1 [facility], [facility] 2 [place] [phone] 01/12/2025 6:45 EDT Treatment [facility] [address] [place] [address] Carlota Jin MD 1 [facility], [facility] 2 [place] [phone] 01/15/2025 6:45 EDT Treatment [facility] [address] [place], [place] [phone] Carlota Jin MD 1 [facility], [facility] 2 [place] [phone] 01/17/2025 6:45 EDT Treatment [facility] - [place] [address] [place], [place] [id number] Carlota Jin MD 1 [facility], [facility] 2 [place] [phone] 01/19/2025 6:45 EDT Treatment [facility] - [place] [address] [place], [place] [address] Carlota Jin MD 1 [facility], [facility] 2 [place] [phone] 01/22/2025 6:45 EDT Treatment [facility] [place] [address] [place], [place] [phone] Carlota Jin MD [address] [place] [address], [facility] 2 [place] [phone] 01/24/2025 6:45 EDT Treatment [facility] - [place] [address] [place], [place] [phone] Carlota Jin MD 1 [facility], [facility] 2 [place] [phone] 01/26/2025 6:45 EDT Treatment [facility] [place] [address] [place], [place] [id number] Carlota Jin MD 1 [facility], [facility] 2 [place] [phone] 01/29/2025 6:45 EDT Treatment [facility] - [place] [address] [place], [place] [id number] Carlota Jin MD 1 [facility], [facility] 2 [place] [phone] 01/31/2025 6:45 EDT Treatment [facility] [place] [address] [place], [place] [address] Carlota Jin MD 1 [facility], [facility] 2 [place] [phone] 02/02/2025 6:45 EDT Treatment [facility] [place] [address] [place], [place] [id number] Carlota Jin MD 1 [facility], [address] [phone] 02/05/2025 6:45 EDT Treatment [facility] [place] [address] [place], [place] [id number] Carlota Jin MD 1 [facility], [address] [phone] 02/07/2025 6:45 EDT Treatment [facility] - [place] [address] [place], [place] [id number] Carlota Jin MD 1 [facility], [facility] 2 [place] [phone] 02/09/2025 6:45 EDT Treatment [facility] - [place] [address] [place], [place] [id number] Carlota Jin MD 1 [facility], [facility] 2 [place] [phone] 02/12/2025 6:45 EDT Treatment [facility] - [place] [address] [place], [place] [id number] Carlota Jin MD [address] [phone] 02/14/2025 6:45 EDT Treatment [facility] - [place] [address] [place], [place] [id number] Carlota Jin MD [address] [place] [phone] 02/16/2025 6:45 EDT Treatment [facility] - [place] [address] [place], [place] [id number] Carlota Jin MD [address] [place] [phone] 02/19/2025 6:45 EDT Treatment [facility] - [place] [address] [place], [place] [id number] Carlota Jin MD [address] [place] [phone] 02/21/2025 6:45 EDT Treatment [facility] - [place] [address] [place], [place] [id number] Carlota Jin MD [address] [place] [phone] documented as of this encounter Visit Diagnoses Not on filedocumented in this encounter Care Teams Acid Pumper Relationship Specialty Start Date End Date Villegas, [facility], [employer] [address] [place] [address] PCP - General 10/12/16 07/06/23 documented as of this encounter
--- OUTSIDE RECORDS SUMMARY | 2024-12-05 12:24 | XMS_ITS | Encounter Summary ---
Author Organization [facility] Address [address] [place] [address] Care Team Providers Care Ore Dressing Engineer Name Role Phone Adeola Villegas APRN Primary Care Provider [phone] Encounter Details Date Type Department Care Team (Late st Contact Info) Description 04/14/2023 Documentation Visit [facility] [address] [place] [address] Shelley Eden, RD [address] [place] [address] Social History Tobacco Use Types Packs/Day Years [...] Progress Notes * Shelley Eden RD - 04/14/2023 0820 EDT Dialysis Dietitian's Monthly Assessment Met with patient on 04/07/23 Family/caregivers or others present: lives with his [...] coffee drinking 3-4 cups a day. He noted he is not really drinking the nepro - we discussed changing supplement to liquacel. Appetite: Good I can eat like [...] Juice Alcohol: will need to f/u Prescribed Weight:88 Post-Dialytic Weight: 87.6 - 04/02/2023 04/05/2023 04/07/2023 04/09/2023 04/12/2023 ( Kg ) 86.9 88.3 87.4 87.5 87.6 UFR: - 04/02/2023 04/05/2023 04/07/2023 04/09/2023 04/12/2023 mL/Kg/hr 6.88 7.8 6.01 6.83 9.51 URR: 72.289 (Calculated from:; BUN Pre-Dialysis: 83 mg/dL at 03/29/2023 13:10; BUN Post-Dialysis: 23 mg/dL at 03/29/2023 13:10) Kt/V: 1.48 (Calculated from:; BUN Pre-Dialysis: 83 mg/dL at 03/29/2023 13:10; BUN Post-Dialysis: 23 mg/dL at 03/29/2023 13:10; Pre-Treatment Weight (kg): 91.5 at 03/29/2023 7:12; Post-Treatment Weight (kg): 89.5 at 03/29/2023 12:52; Duration of Treatment (minutes): 245 minutes at 03/29/2023 11:28) PCR: 1.45 (Calculated from:; BUN Pre-Dialysis: 83 mg/dL at 03/29/2023 13:10; BUN Post-Dialysis: 23 mg/dL at 03/29/2023 13:10; Pre-Treatment Weight (kg): 91.5 at 03/29/2023 7:12; Post-Treatment Weight (kg):89.5 at 03/29/2023 12:52; Duration of Treatment (minutes): 245 minutes at 03/29/2023 11:28; Age: 57 years) Pertinent Labs include: Lab Results Component Value Date LABALBU 3.3 (L) 03/29/2023 LABALBU 3.4 02/22/2023 Lab Results Component Value Date BUNPRE 83 (H) 03/29/2023 BUNPRE 83 (H) 03/29/2023 NA 138 03/29/2023 NA 133 (L) 02/22/2023 K 5.2 (H) 03/29/2023 K 6.2 (H) 02/22/2023 CL 97 03/29/2023 CL 95 (L) 02/22/2023 CO2 26 03/29/2023 CO2 22 02/22/2023 MG 2.5 03/29/2023 MG 2.8 02/22/2023 CALCIUM 8.4 (L) 03/29/2023 CALCIUM 8.6 02/22/2023 CALCCA 9.0 03/29/2023 CALCCA 9.1 02/22/2023 PHOS 8.1 (H) 03/29/2023 PHOS 8.8 (H) 02/22/2023 ALKPHOS 92 03/29/2023 ALKPHOS 94 02/22/2023 PTH 239 (H) 01/25/2023 PTH 341 (H) 11/30/2022 PLT 251 04/07/2023 PLT 250 03/31/2023 MCV 94 04/07/2023 MCV 94 03/31/2023 [id number] 688 11/16/2022 VITD 27 (L) 11/16/2022 FOLATE 17.3 11/16/2022 Protein/calorie supplements: Nepro on HD days- will change to liqaucel at pt request Using protein powder at home (orgain) Renal/other [...] daily but albumin remains low - will change to liquacel since he is not consistent with nepro and have encouraged use of protein powder at home. His wt has ranged from 86-88 kg since starting HD and his current BMI is at 28. He is well nourished in appearance and fairly highly functioning Weight/Volume status: fluid gains 1.2-1.4 UFR 6-9 Electrolytes: All WNL Mineral Bone Disease: Ca [...] 1. Revd high phos foods to limit discussed milk alternatives and timing of phos binders - info sheets given 2. Change to liquacel And cont protein powder at home to improve albumin 3. Will need to change to renal vitamin 4. Continue Vitamin D3 supplement Shelley Eden RD, CD documented in this encounter Plan of Treatment Upcoming Encounters Date Type Department Care Team (Late st Contact Info) Description 12/06/2024 6:45 EST Treatment [facility] [address] [place], [place] [id number] Carlota Jin MD 1 [facility], [facility] 2 [place] [address] 12/08/2024 6:45 EST Treatment [facility] [address] [place] [id number] Carlota Jin MD 1 [facility], Level [address] [place] [phone] 12/11/2024 6:45 EST Treatment [facility] [place] [address] [place], [place] [id number] Carlota Jin MD 1 [facility], [facility] 2 [place] [phone] 12/13/2024 6:45 EST Treatment [facility] [address] [place], [place] [id number] Carlota Jin MD 1 [facility], [facility] 2 [place] [phone] 12/15/2024 6:45 EST Treatment [facility] [address] [place], [place] [id number] Carlota Jin MD 1 [facility], [facility] 2 [place] [phone] 12/18/2024 6:45 EST [facility] [address] [place] [address] Carlota Jin MD 1 [facility], [facility] 2 [place] [phone] 12/20/2024 6:45 EST Treatment [facility] [address] [place], [place] [id number] Carlota Jin MD 1 [facility], [facility] 2 [place] [phone] 12/22/2024 6:45 EST Treatment [facility] [place] [address] [place], [place] [id number] Carlota Jin MD 1 [facility], [facility] 2 [place] [phone] 12/25/2024 6:45 EST Treatment [facility] [place] [address] [place], [place] [id number] Carlota Jin MD 1 [facility], [facility] 2 [place] [phone] 12/27/2024 6:45 EST Treatment [facility] [place] [address] [place], [place] [id number] Carlota Jin MD 1 [facility], [facility] 2 [place] [phone] 12/29/2024 6:45 EST Treatment [facility] [place] [address] [place], [place] [id number] Carlota Jin MD 1 [facility], [facility] 2 [place] [phone] 01/01/2025 6:45 EDT Treatment [facility] [place] [address] [place], [place] [id number] Carlota Jin MD 1 [facility], [facility] 2 [place] [phone] 01/03/2025 6:45 EDT Treatment [facility] [place] [address] [place], [place] [id number] Carlota Jin MD 1 [facility], [facility] 2 [place] [phone] 01/05/2025 6:45 EDT Treatment [facility] [place] [address] [place], [place] [address] Carlota Jin MD 1 [facility], [facility] 2 [place] [phone] 01/08/2025 6:45 EDT Treatment [facility] [place] [address] [place], [place] [id number] Carlota Jin MD 1 [facility], [facility] 2 [place] [phone] 01/10/2025 6:45 EDT Treatment [facility] [place] [address] [place], [place] [id number] Carlota Jin MD 1 [facility], [facility] 2 [place] [phone] 01/12/2025 6:45 EDT Treatment [facility] [place] [address] [place], [place] [id number] Carlota Jin MD 1 [facility], [facility] 2 [place] [phone] 01/15/2025 6:45 EDT Treatment [facility] [place] [address] [place], [place] [id number] Carlota Jin MD 1 [facility], [facility] 2 [place] [phone] 01/17/2025 6:45 EDT Treatment [facility] [place] [address] [place], [place] [id number] Carlota Jin MD 1 [facility], [facility] 2 [place] [phone] 01/19/2025 6:45 EDT Treatment [facility] [place] [address] [place], [place] [id number] Carlota Jni MD 1 [facility], [facility] 2 [place] [phone] 01/22/2025 6:45 EDT Treatment [facility] [place] [address] [place], [place] [id number] Carlota Jin MD [address] [place] [address], [facility] 2 [place] [phone] 01/24/2025 6:45 EDT Treatment [facility] [place] [address] [place], [place] [id number] Carlota Jin MD 1 [facility], [facility] 2 [place] [phone] 01/26/2025 6:45 EDT Treatment [facility] [place] [address] [place], [place] [id number] Carloat Jin MD 1 [facility], [facility] 2 [place] [phone] 01/29/2025 6:45 EDT Treatment [facility] [place] [address] [place], [place] [id number] Carlota Jin MD 1 [facility], [facility] 2 [place] [phone] 01/31/2025 6:45 EDT Treatment [facility] [place] [address] [place], [place] [id number] Carlota Jin MD 1 [facility], [facility] 2 [place] [phone] 02/02/2025 6:45 EDT Treatment [facility] [place] [address] [place], [place] [id number] Carlota Jin MD 1 [facility], [facility] 2 [place] [phone] 02/05/2025 6:45 EDT Treatment [facility] [place] [address] [place] [address] Carlota Jin MD 1 [facility], [facility] 2 [place] [phone] 02/07/2025 6:45 EDT Treatment [facility] [place] [address] [place] [address] Carlota Jin MD 1 [facility], [facility] 2 [place] [phone] 02/09/2025 6:45 EDT Treatment [facility] [place] [address] [place], [place] [id number] Carlota Jin MD 1 [facility], [facility] 2 [place] [phone] 02/12/2025 6:45 EDT Treatment [facility] [place] [address] [place], [place] [id number] Carlota Jin MD [address] [phone] 02/14/2025 6:45 EDT Treatment [facility] [place] [address] [place], [place] [id number] Carlota Jin MD [address] [place] [address], [address] [phone] 02/16/2025 6:45 EDT Treatment [facility] [place] [address] [place], [place] [id number] Carlota Jin MD [address] [place] [phone] 02/19/2025 6:45 EDT Treatment [facility] [place] [address] [place], [place] [id number] Carlota Jin MD [address] [place] [address], [address] [phone] 02/21/2025 6:45 EDT Treatment [facility] [address] [place], [place] [id number] Carlota Jin MD 1 [facility], [address] [phone] documented as of this encounter Visit Diagnoses Not on filedocumented in this encounter Care Teams Ore Dressing Engineer Relationship Specialty Start Date End Date Adeola Villegas, SENIOR CLINICAL DATA COORDINATOR [address] [place] [address] PCP - General 10/12/16 07/06/23 documented as of this encounter
--- OUTSIDE RECORDS SUMMARY | 2024-12-05 12:24 | XMS_ITS | Encounter Summary ---
Author Organization [facility] Address [address] [place] [address] Care Team Providers Care Real Estate Acquisition Analyst Name Role Phone Adeola Villegas APRN Primary Care Provider [phone] Encounter Details Date Type Department Care Team (Latest Contact Info) Description 04/16/2023 7:15 EDT Treatment [facility] [address] [place] [address] Carlota Jin MD 1 [facility], Level [address] [place] [address] ESRD (end stage renal disease) ([facility]) (Primary Dx); Anemia of chronic renal failure, unspecified CKD stage; Hypoalbuminemia; Secondary hyperparathyroidism ([facility]) Social History Tobacco [...] - - Temperature - - Respiratory Rate 17 04/16/2023 1110 EDT Oxygen Saturation - - Inhaled Oxygen Concentration - - Weight 92.1 kg (203 lb 0.7 oz) 04/16/2023 0648 E DT Height - - Body Mass Index 29.55 01/25/2023 0751 EDT documented in this encounter Plan of Treatment Upcoming Encounters Date Type Department Care Team (Late st Contact Info) Description 12/06/2024 6:45 EST Treatment [facility] [address] [place], [place] [id number] Carlota Jin MD 1 [facility], [facility] 2 [place] [phone] 12/08/2024 6:45 EST Treatment [facility] [address] [place], [place] [id number] Carlota Jin MD 1 [facility], [facility] 2 [place] [phone] 12/11/2024 6:45 EST [facility] [address] [place], [place] [id number] Carlota Jin MD 1 [facility], [address] [phone] 12/13/2024 6:45 EST Treatment [facility] [address] [place], [place] [id number] Carlota Jin MD 1 [facility], [facility] 2 [place] [phone] 12/15/2024 6:45 EST Treatment [facility] [address] [place], [place] [id number] Carlota Jin MD 1 [facility], [facility] 2 [place] [phone] 12/18/2024 6:45 EST Treatment [facility] [place] [address] [place], [place] [address] Carlota Jin MD 1 [facility], [facility] 2 [place] [phone] 12/20/2024 6:45 EST Treatment [facility] [place] [address] [place], [place] [id number] Carlota Jin MD 1 [facility], [facility] 2 [place] [phone] 12/22/2024 6:45 EST Treatment [facility] [place] [address] [place], [place] [id number] Carlota Jin MD 1 [facility], [facility] 2 [place] [phone] 12/25/2024 6:45 EST Treatment [facility] [place] [address] [place], [place] [phone] Carlota Jin MD 1 [facility], [facility] 2 [place] [phone] 12/27/2024 6:45 EST Treatment [facility] [address] [place], [place] [id number] Carlota Jin MD 1 [facility], [facility] 2 [place] [phone] 12/29/2024 6:45 EST Treatment [facility] [place] [address] [place], [place] [id number] Carlota Jin MD 1 [facility], [facility] 2 [place] [phone] 01/01/2025 6:45 EDT Treatment [facility] [place] [address] [place], [place] [id number] Carlota Jin MD 1 [facility], [facility] 2 [place] [phone] 01/03/2025 6:45 EDT Treatment [facility] [place] [address] [place], [place] [id number] Carlota iJn MD 1 [facility], [facility] 2 [place] [phone] 01/05/2025 6:45 EDT Treatment [facility] [place] [address] [place], [place] [id number] Carlota Jin MD 1 [facility], [facility] 2 [place] [phone] 01/08/2025 6:45 EDT Treatment [facility] [place] [address] [place] [address] Carlota Jin MD 1 [facility], [facility] 2 [place] [phone] 01/10/2025 6:45 EDT Treatment [facility] [address] [place], [place] [phone] Carlota Jin MD 1 [facility], [facility] 2 [place] [phone] 01/12/2025 6:45 EDT Treatment [facility] [place] [address] [place], [place] [id number] Carlota Jin MD 1 [facility], [facility] 2 [place] [phone] 01/15/2025 6:45 EDT Treatment [facility] [place] [address] [place], [place] [id number] Carlota Jin MD [address] [place] [address], [address] [phone] 01/17/2025 6:45 EDT Treatment [facility] [place] [address] [place], [place] [id number] Carlota Jin MD [address] [place] [address], [address] [phone] 01/19/2025 6:45 EDT Treatment [facility] [place] [address] [place], [place] [id number] Carlota Jin MD [address] [place] [address], [facility] 2 [place] [phone] 01/22/2025 6:45 EDT Treatment [facility] [place] [address] [place], [place] [id number] Carlota Jin MD 1 [facility], [facility] 2 [place] [phone] 01/24/2025 6:45 EDT Treatment [facility] [place] [address] [place], [place] [id number] Carlota Jin MD 1 [facility], [facility] 2 [place] [phone] 01/26/2025 6:45 EDT Treatment [facility] [place] [address] [place], [place] [address] Carlota Jin MD 1 [facility], [facility] 2 [place] [phone] 01/29/2025 6:45 EDT Treatment [facility] [place] [address] [place], [place] [id number] Carlota Jin MD 1 [facility], [facility] 2 [place] [phone] 01/31/2025 6:45 EDT Treatment [facility] [place] [address] [place] [address] Carlota Jin MD 1 [facility], [facility] 2 [place] [phone] 02/02/2025 6:45 EDT Treatment [facility] [place] [address] [place] [address] Carlota Jin MD 1 [facility], [facility] 2 [place] [phone] 02/05/2025 6:45 EDT Treatment [facility] [place] [address] [place], [place] [id number] Carlota Jin MD 1 [facility], [facility] 2 [place] [phone] 02/07/2025 6:45 EDT Treatment [facility] [place] [address] [place], [place] [id number] Carlota Jin MD 1 [facility], [facility] 2 [place] [phone] 02/09/2025 6:45 EDT Treatment [facility] [place] [address] [place], [place] [id number] Carlota Jin MD 1 [facility], [facility] 2 [place] [phone] 02/12/2025 6:45 EDT Treatment [facility] [place] [address] [place] [address] Carlota Jin MD [address] [place] [address], [address] [phone] 02/14/2025 6:45 EDT Treatment [facility] [place] [address] [place], [place] [id number] Carlota Jin MD 1 [facility], [facility] 2 [place] [phone] 02/16/2025 6:45 EDT Treatment [facility] [place] [address] [place], [place] [id number] Carlota Jin MD 1 [facility], [facility] 2 [place] [phone] 02/19/2025 6:45 EDT Treatment [facility] [place] [address] [place], [place] [phone] Carlota Jin MD 1 [facility], Level [address] [place] [phone] 02/21/2025 6:45 EDT Treatment [facility] [place] [address] [place] [id number] Carlota Jin MD 1 [facility], Level [address] [place] [phone] documented as of this encounter Procedures Procedure Name Priority Date/Time Associated Diagnosis Comments HEMODIALYSIS Routine 04/16/2023 6:57 EDT ESRD (end stage renal disease) ([facility]) documented in this encounter Visit Diagnoses Diagnosis ESRD (end stage renal disease) ([facility] Primary End stage renal disease Anemia of chronic renal failure, unspecified CKD stage Hypoalbuminemia Other disorders of plasma protein metabolism Secondary hyperparathyroidism ([facility]) Secondary hyperparathyroidism (of renal origin) documented in this encounter Administered Medications Inactive Administered Medications - up to 3 most recent administrations Medication Order MAR Action Action Date Dose Rate Site calcium carbonate (TUMS) tablet 500 mg (200 mg elemental calcium) 2 Tablet 2 Tablet, oral, ONCE IN DIALYSIS, 1 dose, On Wed04/16/23 at 0715, Routine, DialysisIndications:ESRD (end stage renal disease) ([facility]),Secondary hyperparathyroidism ([facility]) Given 04/16/2023 8:10 EDT 2 Tablets epoetin ken (EPOGEN) 20,000 unit/2 mL injection 500 Units 500 Units, intravenous, ONCE IN DIALYSIS, 1 dose, On Wed04/16/23 at 0715, Routine, DialysisIndications:ESRD (end stage renal disease) ([facility]),Anemia of chronic renal failure, unspecified CKD stage Given 04/16/2023 8:10 EDT 500 Units heparin injection 9,000 Units 9,000 Units, intravenous, ONCE IN DIALYSIS, 1 dose, On Wed04/16/23 at 0715, Routine, Dialysis, Now x1 bolus 4500 units to be given at the beginning of dialysis 1500 units/hour to be given over the course of dialysis (9000 units total). Stop 1 hour prior to end of treatment. To be administered per Policy [id number].Indications:ESRD (end stage renal disease) ([facility]) Given 04/16/2023 7:09 EDT 9,000 Units LiquaCel liquid protein liquid 30 mL 30 mL, oral, ONCE IN DIALYSIS, 1 dose, On Wed04/16/23 at 0715, RoutineIndications:Hypoalbuminemi a,ESRD (end stage renal disease) ([facility]) Given 04/16/2023 8:10 EDT 30 mL documented in this encounter Orders Dialysis Count Last Ordered Date First Orde red Date HEMODIALYSIS 1 04/16/2023 documented in this encounter Care Teams Real Estate Acquisition Analyst Relationship Specialty Start Date End Date Adeola Villegas APRN [address] [place] [address] PCP - General 10/12/16 07/06/23 documented as of this encounter
--- OUTSIDE RECORDS SUMMARY | 2024-12-05 12:24 | XMS_ITS | Encounter Summary ---
Author Organization [facility] Address [address] [place] [address] Care Team Providers Care Hand Embroiderer Name Role Phone Adeola Villegas APRN Primary Care Provider [phone] Encounter Details Date Type Department Care Team (Late st Contact Info) Description 04/30/2023 Documentation Visit [facility] [address] [place], [place] [id number] Melissa Crespo, RN Social History Tobacco Use [...] Contact Info) Description 12/06/2024 6:45 EST Treatment [facility] [address] [place] [place] [id number] Carlota Jin MD [facility], Level 2 [place] [phone] 12/08/2024 6:45 EST Treatment [facility] [address] [place] [id number] Carlota Jin MD [facility], [facility] 2 [place] [phone] 12/11/2024 6:45 EST Treatment [facility] [place] [address] [place], [place] [address] Carlota Jin MD [facility], [facility] 2 [place] [phone] 12/13/2024 6:45 EST Treatment [facility] [place] [address] [place], [place] [id number] Carlota Jin MD 1 [facility], [facility] 2 [place] [phone] 12/15/2024 6:45 EST Treatment [facility] [place] [address] [place], [place] [id number] Carlota Jin MD 1 [facility], [facility] 2 [place] [phone] 12/18/2024 6:45 EST Treatment [facility] [address] [place] [address] Carlota Jin MD [address] [facility], [facility] 2 [place] [phone] 12/20/2024 6:45 EST Treatment [facility] [place] [address] [place], [place] [id number] Carlota Jin MD 1 [facility], [facility] 2 [place] [phone] 12/22/2024 6:45 EST Treatment [facility] [place] [address] [place], [place] [id number] Carlota Jin MD 1 [facility], [facility] 2 [place] [phone] 12/25/2024 6:45 EST Treatment [facility] [place] [address] [place], [place] [id number] Carlota Jin MD 1 [facility], [facility] 2 [place] [phone] 12/27/2024 6:45 EST Treatment [facility] [place] [address] [place], [place] [id number] Carlota Jin MD 1 [facility], [facility] 2 [place] [phone] 12/29/2024 6:45 EST Treatment [facility] [place] [address] [place], [place] [id number] Carlota Jin MD 1 [facility], [facility] 2 [place] [phone] 01/01/2025 6:45 EDT Treatment [facility] [place] [address] [place], [place] [id number] Carlota Jin MD 1 [facility], [facility] 2 [place] [phone] 01/03/2025 6:45 EDT Treatment [facility] [place] [address] [place], [place] [id number] Carlota Jin MD [facility], Level [address] [place] [phone] 01/05/2025 6:45 EDT Treatment [facility] - [place] [address] [place], [place] [address] Carlota Jin MD [address] [facility], [facility] 2 [place] [phone] 01/08/2025 6:45 EDT Treatment [facility] [place] [address] [place], [place] [id number] Carlota Jin MD 1 [facility], [facility] 2 [place] [phone] 01/10/2025 6:45 EDT Treatment [facility] [place] [address] [place] [address] Carlota Jin MD 1 [facility], [facility] 2 [place] [phone] 01/12/2025 6:45 EDT Treatment [facility] [address] [place] [address] Carlota Jin MD [address] [facility], [facility] 2 [place] [phone] 01/15/2025 6:45 EDT Treatment [facility] [address] [place], [place] [id number] Carlota Jin MD 1 [facility], [facility] 2 [place] [phone] 01/17/2025 6:45 EDT Treatment [facility] [place] [address] [place], [place] [id number] Carlota Jin MD 1 [facility], [facility] 2 [place] [phone] 01/19/2025 6:45 EDT Treatment [facility] [place] [address] [place], [place] [id number] Carlota Jin MD 1 [facility], [facility] 2 [place] [phone] 01/22/2025 6:45 EDT Treatment [facility] [place] [address] [place], [place] [id number] Carlota Jin MD [address] [place] [address], [facility] 2 [place] [phone] 01/24/2025 6:45 EDT Treatment [facility] [place] [address] [place], [place] [id number] Carlota Jin MD 1 [facility], [facility] 2 [place] [phone] 01/26/2025 6:45 EDT Treatment [facility] [place] [address] [place], [place] [id number] Carlota Jin MD 1 [facility], [facility] 2 [place] [phone] 01/29/2025 6:45 EDT Treatment [facility] [place] [address] [place], [place] [id number] Carlota Jin MD 1 [facility], [facility] 2 [place] [phone] 01/31/2025 6:45 EDT Treatment [facility] [place] [address] [place], [place] [id number] Carlota Jin MD [facility], [facility] 2 [place] [phone] 02/02/2025 6:45 EDT Treatment [facility] [place] [address] [place], [place] [id number] Carlota Jin MD 1 [facility], [address] [phone] 02/05/2025 6:45 EDT Treatment [facility] [place] [address] [place], [place] [id number] Carlota Jin MD 1 [facility], [address] [phone] 02/07/2025 6:45 EDT Treatment [facility] [place] [address] [place], [place] [id number] Carlota Jin MD 1 [facility], [facility] 2 [place] [phone] 02/09/2025 6:45 EDT Treatment [facility] [place] [address] [place], [place] [id number] Carlota Jin MD 1 [facility], [facility] 2 [place] [phone] 02/12/2025 6:45 EDT Treatment [facility] [place] [address] [place], [place] [id number] Carlota Jin MD [address] [phone] 02/14/2025 6:45 EDT Treatment [facility] [place] [address] [place], [place] [id number] Carlota Jin MD [address] [place] [phone] 02/16/2025 6:45 EDT Treatment [facility] [place] [address] [place], [place] [id number] Carlota Jin MD [address] [place] [phone] 02/19/2025 6:45 EDT Treatment [facility] [place] [address] [place], [place] [id number] Carlota Jin MD [address] [place] [phone] 02/21/2025 6:45 EDT Treatment [facility] [place] [address] [place], [place] [id number] Carlota Jin MD [address] [place] [phone] documented as of this encounter Visit Diagnoses Not on filedocumented in this encounter Care Teams Hand Embroiderer Relationship Specialty Start Date End Date Villegas, [place], [employer] [address] [place] [address] PCP - General 10/12/16 07/06/23 documented as of this encounter
--- OUTSIDE RECORDS SUMMARY | 2024-12-05 12:24 | XMS_ITS | Encounter Summary ---
Author Organization [facility] Address [address] [place] [address] Care Team Providers Care Senior Net Architect Name Role Phone Adeola Villegas APRN Primary Care Provider [phone] Encounter Details Date Type Department Care Team (Latest Contact Info) Description 04/12/2023 7:15 EDT Treatment [facility] [address] [place] [address] Carlota Jin MD 1 [facility], [address] [place] [address] ESRD (end stage renal disease) ([facility]) (Primary Dx); Anemia of chronic renal failure, unspecified CKD stage; Hypoalbuminemia; Secondary hyperparathyroidism ([facility]) Social History Tobacco Use Types [...] - Temperature - - Respiratory Rate 18 04/12/2023 0704 EDT Oxygen Saturation - - Inhaled Oxygen Concentration - - Weight 91 kg (200 lb 9.9 oz) 04/12/2023 0704 EDT Height - - Body Mass Index 29.2 01/25/2023 0751 EDT documented in this encounter Miscellaneous Notes * Flowsheet Note - Melissa Crespo RN - 04/12/2023 1352 EDT 04/12/23 1226 Post-Hemodialysis Assessment Total Blood Processed (L) 90.07 Liters On Line Clearance: spKt/V 1.47 spKt/V Dialyzer Clearance Lightly streaked Treatment UFR (ml:kg:hr) 9.51 ml:kg:hr Final Critline Profile (%/hr) -3.18 Final Profile Profile B Critline refill Negative (33.5-33.2) Fluid Removed (L) 3.5 L Post-Dialysis Scale Weight 88.6 kg (195 lb 5.2 oz) Wheelchair Weight 0 kg (0 lb) Prosthesis Weight 1 kg (2 lb 3.3 oz) (boots) Post-Treatment Weight (kg) 87.6 Treatment Weight Change (kg) 3.4 kg Day Target Weight (kg) 88 Post Sitting/Lying BP 168/88 Post Sitting/Lying pulse 73 Post Standing BP 159/78 Post Standing Pulse 76 Temp 36.9 ??C (98.4 ??F) Temp src Skin Post access assessment AVF/AFG Hemostasis achieved Yes Orientation Alert and Oriented x3 Yes Cooperative Yes Disoriented No Discharge Ambulation Methods Ambulatory without assistance Wrap up items Patient Response to Treatment Tolerated tx. Removed 3500 UF goal. Stable upon DC from unit. Comments No issues during tx, No concerns voiced post tx. * Dialysis Comprehensive - Carlota Jin MD - 04/12/2023 0715 EDT Images from the original note were not included. TELEMEDICINE VIDEO VISIT Today's visit was provided through telemedicine video conferencing: I have reviewed the appropriateness of using video technology with the patient with regards to today's visit. The location of the patient : [facility] Patient location state: Visit Location State: [place] The location of the provider: Office Provider location state: Visit Location State: [place] The following people and their roles were present for today's visit: Appointment Provider: MD Melissa Valdivia RN Alison F Fitzgerald, MD Dialysis Provider's Monthly Comprehensive Assessment Dialysis Unit: [facility] ESRD Etiology: Type 2 diabetes mellitus with diabetic chronic kidney disease ([facility]) Patient Active Problem List Diagnosis ??? 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 ESRD (end stage renal disease) ([facility]) ([facility]) ??? Essential (primary) hypertension ??? Hearing loss ??? Herniation of lumbar intervertebral disc with radiculopathy ??? Hyperlipidemia ??? Proteinuria ??? Right sided numbness ??? Secondary hyperparathyroidism ([facility]) ??? TIA (transient ischemic attack) ??? Type [...] Choice: Hemodialysis, Incenter Plan: Continue current modality. Ultimately may be interested in transplant if/when he stops smoking Transplantation: Patient Had Prior Transplant: No Transplant Status 12/16/2022 Referral Status Declines Meets Criteria at Center? No Info Sent? No Workup in Progress? No Transplant Candidate? No On Active Transplant List? No Listing On-Hold? No Comments Patient does not meet transplant criteria due to daily smoking cigarettes Current Dialysis Prescription: Hemodialysis Therapy Plan In-Center Hemodialysis 3 times a week Prescribed Weight (Kg): 88 Treatments Per Week: 3 Dialyzer: OPTIFLUX 200NR [...] Yes Average Interdialytic Fluid Gains: InterDialytic +/- 04/07/2023 04/07/2023 04/09/2023 04/09/2023 04/09/2023 04/12/2023 04/12/2023 Gain/Loss 1.2 - 2.5 2.5 - 3.5 3.5 Wt (pre) 89.5 - 89.9 89.9 - 91 91 Wt (post) - 87.4 - - 87.5 - - Treatment UFR (ml:kg:hr) - 6.01 - - 6.83 - - BP (pre) 134/70 - 134/75 134/75 - 143/83 143/83 BP (post) 185/87 - 160/81 160/81 - 175/86 175/86 Pulse (pre) 69 - 70 70 - 68 68 Pulse(post) 68 - 65 65 - 68 68 Resp (/min) - 17 - 17 17 - 18 Volume and blood pressure have been addressed with the following changes: None Consistently able to achieve estimated dry weight? Yes Blood pressure is in range for patient? Yes Any adverse intradialytic symptoms? No Plan: Managed per protocol Physical Exam (video) Constitutional Sleeping and difficult to rouse (typical) Respiratory: Unlabored breathing Cardiac: deferred Abdomen: deferred Extremities: deferred Hospitalization Hospitalization in Previous 3 Months: No Emergency Room Visit in Previous 3 Months: No Access Management Current LDAs: Hemodialysis Arteriovenous Access 02/13/19 (Active) AV Fistula Present 04/12/23721 Site Assessment Clean;Dry;Intact;Bruit heard;Thrill felt 04/12/23721 Current State Active 04/12/23721 Status Accessed 04/12/23721 Is Maturing N 04/12/23721 Local Anesthetic None 04/12/23721 Site Prep Chlorhexidine 04/12/23721 Venous Needle Size 15 G 04/12/23721 Arterial/Generic Needle Size 15 G 04/12/23721 Accessed by: Sandra 04/12/23721 Access Attempts 1 04/12/23721 Dressing Status/Care Clean/Dry/Intact 04/12/23721 Patient has AVF/AVG as primary access: Yes [...] Rfl: ??? hydroCHLOROthiazide (HYDRODIURIL) 25 mg tablet, , Disp: , Rfl: ??? hydrOXYzine (ATARAX) 25 [...] Tablet, Rfl: 3 Current Facility-Administered Medications: ??? LiquaCel liquid protein liquid 30 mL, 30 mL, oral, ONCE IN DIALYSIS, Skye Gomez NP Adjustment made to home medication: Yes: Lasix already d/c'd; I recommend he d/c hydrochlorothiazide Dialysis Medication Review Dialysis Plan Order Summary All Current Orders Interval Duration Due Hemodialysis Therapy Plan Dialysis Treatment In-Center Hemodialysis 3 times a week Week of 04/11/2023 Routine, ONE TIME Starting when released Prescribed Weight (Kg): 88 Treatments Per Week: 3 Dialyzer: OPTIFLUX 200NR Dialysate concentrate: Potassium 2 mEq/L Calcium 2.5 mEq/L Sodium NA+: Other Please specify: 136 Dialysate: Bicarb (mEq/L): 33 Dialysate Temperature (Centigrade): 36 BFR mL/min: 400 mL/min Dialysate Flow Rate (mL/min): 800 mL/min Duration of Treatment (hrs): 4 Hours Primary Access Site: AV Fistula Needle gauge: 15g 1 Dialysis - UF Profile: None Dialysis Last released: Wed04/12/2023 Oxygen Therapy (Age 2 yrs. to Adult) [...] released Until Discontinued, Pain, Dialysis Last released: Wed04/09/2023 diphenhydrAMINE (BENADRYL) capsule 25 mg PRN PRN [...] of treatment. To be administered per Policy [id number]. Last released: Wed04/12/2023 sodium chloride 0.9 % BOLUS 100 mL PRN PRN 100 mL, intravenous, PRN Starting when released Until Discontinued, Other, hypotension or cramping,Dialysis Last released: Never Dialysis Weekly Labs Complete Blood Count Weekly: Wed04/14/2023 Routine, ONE TIME Starting when released, Blood, Venous, Blood Results Release to Patient (Note: Choosing Manual Release will only block results from tests performed at [facility] and does not apply for Miscellaneous Test Order): Immediate via MyChart Portal Dialysis Last released: Wed04/07/2023 Dialysis Monthly Labs Dialysis Iron (Includes Iron, IBC, and Ferritin) - Nephrology Use Only On the Wed of every 1 month Wed04/26/2023 Routine, ONE TIME Starting when released, Blood, Venous, Blood Results Release to Patient (Note: Choosing Manual Release will only block results from tests performed at [facility] and does not apply for Miscellaneous Test Order): Immediate via [facility] Portal Dialysis Last released: Wed03/29/2023 Dialysis Routine- Dialysis Use Only On the Wed of every 1 month Wed04/26/2023 Routine, ONE TIME Starting when released, Blood, Blood, Venous Results Release to Patient (Note: Choosing Manual Release will only block results from tests performed at [facility] and does not apply for Miscellaneous Test Order): Immediate via [facility] Portal Dialysis Last released: Wed03/29/2023 Postdialysis BUN with URR Calculation On the Wed of every 1 month Wed04/26/2023 Routine, ONE TIME Starting when released, Blood, Blood, Venous Results Release to Patient (Note: Choosing Manual Release will only block results from tests performed at [facility] and does not apply for Miscellaneous Test Order): Immediate via [facility] Portal Dialysis Last released: Wed03/29/2023 Dialysis Quarterly Labs PTH Intact On the Wed of every 3 months Wed04/26/2023 Routine, ONE TIME Starting when released, Blood, Venous, Blood Results Release to Patient (Note: Choosing Manual Release will only block results from tests performed at [facility] and does not apply for Miscellaneous Test Order): Immediate via [facility] Portal Dialysis Last released: Wed01/25/2023 Dialysis Annual Labs - October Dialysis Hepatitis- [...] the 1st Mon of every 12 months [facility] 10/25/2023 Routine, ONE TIME Starting when released, Blood, Venous, Blood Results Release to Patient (Note: Choosing Manual Release will only block results from tests performed at [facility] and does not apply for Miscellaneous Test Order): Immediate via MyChart Portal Dialysis Last released: Never Vitamin B12 On the 1st Mon of every 12 months [facility] 10/25/2023 Routine, ONE TIME Starting when released, Blood, Venous, Blood Results Release to Patient (Note: Choosing Manual Release will only block results from tests performed at [facility] and does not apply for Miscellaneous Test Order): Immediate via MyChart Portal Dialysis Last released: Never Vitamin D (25,OH) On the Mon of every 12 months [facility] 10/25/2023 Routine, ONE TIME Starting when released, [...] On the Mon of every 12 months [facility] 04/26/2023 Routine, ONE TIME Starting when released, Blood, Venous, Blood Results Release to Patient (Note: Choosing Manual Release will only block results from tests performed at [facility] and does not apply for Miscellaneous Test Order): Immediate via MyChart Portal Dialysis Last released: Never HEMODIALYSIS ANEMIA MEDS Medications epoetin ken (EPOGEN) 20,000 unit/2 mL injection 500 Units Weekly: Wed, Wed04/16/2023 500 Units, intravenous, ONCE IN DIALYSIS Starting when released, Dialysis Last released: Wed04/12/2023 HEMODIALYSIS NUTRITIONAL SUPPLEMENTS Nutritional Supplements LiquaCel liquid protein liquid 30 mL Every visit Every visit 30 mL, oral, ONCE IN DIALYSIS Starting when released Last released: Wed04/12/2023 HEMODIALYSIS CKD MBD MEDS Medications calcium carbonate (TUMS) tablet 500 mg (200 mg elemental calcium) 2 Tablet Every visit Every visit 2 Tablet, oral, ONCE IN DIALYSIS Starting when released, Dialysis Last released: 04/12/2023 Adjustment made to dialysis medication: No Laboratory Results Dialysis Adequacy: spKt/V: 1.48 (Calculated from:; BUN Pre-Dialysis: 83 mg/dL at 03/29/2023 13:10; BUN Post-Dialysis: 23mg/dL at 03/29/2023 13:10; Pre-Treatment Weight (kg): 91.5 at 03/29/2023 7:12; Post-Treatment Weight (kg): 89.5 at 03/29/2023 12:52; Duration of Treatment (minutes): 245 minutes at 03/29/2023 11:28) Plan: Continue current dialysis prescription Anemia Management: Lab Results Component Value Date WBC 7.63 04/07/2023 HGB 9.7 (L) 04/07/2023 HGB 10.3 (L) 03/31/2023 HGB 10.6 (L) 03/24/2023 PLT 251 04/07/2023 FOLATE 17.3 11/16/2022 [id number] 688 11/16/2022 FERRITIN 701 (H) 03/29/2023 Current GEORGE/Dose: HEMODIALYSIS ANEMIA MEDS epoetin ken (EPOGEN) 20,000 unit/2 mL injection 500 Units 500 Units, intravenous, Weekly: Wed, Wed, ONCE IN DIALYSIS Iron Series/Maintenance: This patient [...] Component Value Date LABALBU 3.3 (L) 03/29/2023 ALKPHOS 92 03/29/2023 PHOS 8.1 (H) 03/29/2023 CALCIUM 8.4 (L) 03/29/2023 CALCCA 9.0 03/29/2023 PTH 239 (H) 01/25/2023 Vitamin D: cholecalciferol (Vitamin D3) - 25 mcg (1,000 unit) sevelamer hydrochloride - 800 mg This patient does not have an active medication from one of the medication groupers. Plan: Managed per protocol Potassium Management: Lab Results Component Value Date K 5.2 (H) 03/29/2023 Prescribed Potassium Concentrate: HEMODIALYSIS Ordered at: 04/12/23 0702 Dialysate concentrate: Potassium 2 mEq/L Calcium 2.5 mEq/L Last Dialysis Prescription released on: 04/12/2023 Selected bath: Potassium 2 mEq/L Calcium 2.5 mEq/L Some recent data might be hidden sevelamer hydrochloride - 800 mg Plan: Managed per protocol Nutrition: Lab Results Component Value Date LABALBU 3.3 (L) 03/29/2023 NA 138 03/29/2023 Protein Supplements: This patient does not have an active medication from one of the medication groupers. Plan: Managed per protocol Comments: No acute issues. He regularly sleeps during dialysis and it is difficult to wake him up. He has notbeen able to fully reconcile his medication list so we are working on that. Ongoing discussions with physics tutor re: dietary and medication adherence. I did recommend he stop his Lasix as I did not think it was making a difference. I also recommend he discontinue his hydrochlorothiazide as I think it is also not contributing. We will try to reconcile his medication list. Carlota Jin MD The concept of ???Telemedicine?? [...] Info) Description 12/06/2024 6:45 EST Treatment [facility] [address] [place] [address] Carlota Jin MD 1 [facility], [address] [place] [address] 12/08/2024 6:45 EST Treatment [facility] [place] [address] [place], [place] [id number] Carlota Jin MD 1 [facility], [facility] 2 [place] [phone] 12/11/2024 6:45 EST Treatment [facility] [place] [address] [place], [place] [id number] Carlota Jin MD 1 [facility], [facility] 2 [place] [phone] 12/13/2024 6:45 EST [facility] [address] [place], [place] [phone] Carlota Jin MD 1 [facility], [facility] [address] [place] [phone] 12/15/2024 6:45 EST Treatment [facility] [address] [place], [place] [address] Carlota Jin MD 1 [facility], [facility] [address] [place] [phone] 12/18/2024 6:45 EST Treatment [facility] [place] [address] [place], [place] [phone] Carlota Jin MD 1 [facility], [facility] 2 [place] [phone] 12/20/2024 6:45 EST Treatment [facility] [place] [address] [place], [place] [id number] Carlota Jin MD 1 [facility], [facility] 2 [place] [phone] 12/22/2024 6:45 EST Treatment [facility] [place] [address] [place], [place] [phone] Carlota Jin MD 1 [facility], [facility] [address] [place] [phone] 12/25/2024 6:45 EST Treatment [facility] [place] [address] [place] [address] Carlota Jin MD 1 [facility], [address] [phone] 12/27/2024 6:45 EST Treatment [facility] [place] [address] [place], [place] [id number] Carlota Jin MD 1 [facility], [address] [phone] 12/29/2024 6:45 EST Treatment [facility] [place] [address] [place] [address] Carlota Jin MD 1 [facility], [facility] 2 [place] [phone] 01/01/2025 6:45 EDT Treatment [facility] [place] [address] [place], [place] [phone] Carlota Jin MD 1 [facility], [facility] 2 [place] [phone] 01/03/2025 6:45 EDT Treatment [facility] [place] [address] [place], [place] [address] Carlota Jin MD 1 [facility], [facility] 2 [place] [phone] 01/05/2025 6:45 EDT Treatment [facility] [place] [address] [place], [place] [phone] Carlota Jin MD 1 [facility], [facility] 2 [place] [phone] 01/08/2025 6:45 EDT Treatment [facility] [place] [address] [place] [address] Carlota Jin MD 1 [facility], [address] [phone] 01/10/2025 6:45 EDT Treatment [facility] [place] [address] [place], [place] [address] Carlota Jin MD 1 [facility], [facility] 2 [place] [phone] 01/12/2025 6:45 EDT Treatment [facility] [place] [address] [place], [place] [phone] Carlota Jin MD 1 [facility], [facility] 2 [place] [phone] 01/15/2025 6:45 EDT Treatment [facility] [place] [address] [place], [place] [address] Carlota Jin MD 1 [facility], [address] [phone] 01/17/2025 6:45 EDT Treatment [facility] [place] [address] [place] [address] Carlota Jin MD 1 [facility], [address] [phone] 01/19/2025 6:45 EDT Treatment [facility] [place] [address] [place], [place] [address] Carlota Jin MD 1 [facility], [address] [phone] 01/22/2025 6:45 EDT Treatment [facility] [place] [address] [place] [address] Carlota Jin MD 1 [facility], [address] [phone] 01/24/2025 6:45 EDT Treatment [facility] [place] [address] [place], [place] [phone] Carlota Jin MD [address] [phone] 01/26/2025 6:45 EDT Treatment [facility] [place] [address] [place], [place] [address] Carlota Jin MD 1 [facility], [address] [phone] 01/29/2025 6:45 EDT Treatment [facility] [place] [address] [place], [place] [phone] Carlota Jin MD 1 [facility], [facility] 2 [place] [phone] 01/31/2025 6:45 EDT Treatment [facility] [place] [address] [place], [place] [phone] Carlota Jin MD 1 [facility], [facility] 2 [place] [phone] 02/02/2025 6:45 EDT Treatment [facility] [place] [address] [place], [place] [phone] Carlota Jin MD 1 [facility], [facility] 2 [place] [phone] 02/05/2025 6:45 EDT Treatment [facility] [place] [address] [place], [place] [phone] Carlota Jin MD 1 [facility], [facility] 2 [place] [phone] 02/07/2025 6:45 EDT Treatment [facility] [place] [address] [place], [place] [phone] Carlota Jin MD 1 [facility], [facility] 2 [place] [phone] 02/09/2025 6:45 EDT Treatment [facility] [place] [address] [place], [place] [phone] Carlota Jin MD 1 [facility], [facility] 2 [place] [phone] 02/12/2025 6:45 EDT Treatment [facility] [place] [address] [place], [place] [phone] Carlota Jin MD 1 [facility], [address] [phone] 02/14/2025 6:45 EDT Treatment [facility] [place] [address] [place], [place] [phone] Carlota Jin MD 1 [facility], [address] [phone] 02/16/2025 6:45 EDT Treatment [facility] [place] [address] [place], [place] [phone] Carlota Jin MD 1 [facility], [address] [phone] 02/19/2025 6:45 EDT Treatment [facility] [place] [address] [place], [place] [address] Carlota Jin MD 1 [facility], [facility] 2 [place] [phone] 02/21/2025 6:45 EDT Treatment [facility] [place] [address] [place], [place] [phone] Carlota Jin MD 1 [facility], Level [address] [place] [phone] documented as of this encounter Procedures Procedure Name Priority Date/Time Associated Diagnosis Comments HEMODIALYSIS Routine 04/12/2023 7:02 EDT ESRD (end stage renal disease) ([facility]) documented in this encounter Visit Diagnoses Diagnosis ESRD (end stage renal disease) ([facility])- Primary End stage renal disease Anemia of chronic renal failure, unspecified CKD stage Hypoalbuminemia Other disorders of plasma protein metabolism Secondary hyperparathyroidism ([facility]) Secondary hyperparathyroidism (of renal origin) documented in this encounter Administered Medications Inactive Administered Medications - up to 3 most recent administrations Medication Order MAR Action Action Date Dose Rate Site calcium carbonate (TUMS) tablet 500 mg (200 mg elemental calcium) 2 Tablet 2 Tablet, oral, ONCE IN DIALYSIS, 1 dose, On Wed04/12/23 at 0730, Routine, DialysisIndications:ESRD (end stage renal disease) ([facility]),Secondary hyperparathyroidism ([facility]) Given 04/12/2023 8:34 EDT 2 Tablets epoetin ken (EPOGEN) 20,000 unit/2 mL injection 500 Units 500 Units, intravenous, ONCE IN DIALYSIS, 1 dose, On Wed04/12/23 at 0730, Routine, DialysisIndications:ESRD (end stage renal disease) ([facility]),Anemia of chronic renal failure, unspecified CKD stage Given 04/12/2023 8:34 EDT 500 Units heparin injection 9,000 Units 9,000 Units, intravenous, ONCE IN DIALYSIS, 1 dose, On Wed04/12/23 at 0730, Routine, Dialysis, Now x1 bolus 4500 units to be given at the beginning of dialysis 1500 units/hour to be given over the course of dialysis (9000 units total). Stop 1 hour prior to end of treatment. To be administered per Policy [id number].Indications:ESRD (end stage renal disease) ([facility]) Given 04/12/2023 7:17 EDT 9,000 Units LiquaCel liquid protein liquid 30 mL 30 mL, oral, ONCE IN DIALYSIS, 1 dose, On Wed04/12/23 at 0730, RoutineIndications:Hypoalbuminemi a,ESRD (end stage renal disease) ([facility]) Given 04/12/2023 10:00 EDT 30 mL documented in this encounter Discontinued Medications Medication Sig Discontinue Reason Start Date End Da te furosemide (LASIX) 20 mg tablet Take 1 Tablet by mouth 2 times daily. Therapy completed 11/07/2021 04/12/2023 documented as of this encounter Orders Dialysis Count Last Ordered Date First Orde red Date HEMODIALYSIS 1 04/12/2023 documented in this encounter Care Teams Senior Net Architect Relationship Specialty Start Date End Date Adeola Villegas APRN [address] [place] [address] PCP - General 10/12/16 07/06/23 documented as of this encounter
--- OUTSIDE RECORDS SUMMARY | 2024-12-05 12:24 | XMS_ITS | Encounter Summary ---
Author Organization [facility] Address [address] [place] [address] Care Team Providers Care Jewel Inspector Name Role Phone Adeola Villegas MONA Primary Care Provider [phone] Encounter Details Date Type Department Care Team (Latest Contact Info) Description 04/26/2023 7:15 EDT Treatment [facility] [address] [place] [address] Carlota Jin MD 1 [facility], Level [address] [place] [address] ESRD (end stage renal disease) ([facility]) (Primary Dx); Secondary hyperparathyroidism (HCC-CMS); Anemia of chronic renal failure, unspecified CKD [...] - Temperature - - Respiratory Rate 18 04/26/2023 1119 EDT Oxygen Saturation - - Inhaled Oxygen Concentration - - Weight 91.2 kg (201 lb 1 oz) 04/26/2023 0549 EDT Height - - Body Mass Index 29.27 01/25/2023 0751 EDT documented in this encounter Miscellaneous Notes * Flowsheet Note - Melissa Crespo RN - 04/26/2023 1650 EDT 04/26/23 1119 Post-Hemodialysis Assessment Total Blood Processed (L) 89.6 Liters On Line Clearance: spKt/V 1.5 spKt/V Dialyzer Clearance Lightly streaked Treatment UFR (ml:kg:hr) 9.6 ml:kg:hr Critline refill Not done Fluid Removed (L) 3.5 L Post-Dialysis Scale Weight 87.8 kg (193 lb 9 oz) Wheelchair Weight 0 kg (0 lb) Prosthesis Weight 0 kg (0 lb) Post-Treatment Weight (kg) 87.8 Treatment Weight Change (kg) 3.4 kg Day Target Weight (kg) 88 Post Sitting/Lying BP 121/64 Post Sitting/Lying pulse 89 Post Standing BP 128/67 Post Standing Pulse 64 Temp 36.6 ??C (97.9 ??F) Temp src Temporal Resp 18 Post access assessment Bruit present: Yes Thrill Present AVF/AFG Hemostasis achieved Yes Note Patient held for 10mins with blue clamps Orientation Alert and Oriented x3 Yes Time Yes Place Yes Person Yes Cooperative Yes Disoriented No Discharge Ambulation Methods Ambulatory without assistance Wrap up items Patient Response to Treatment Cramped at 3rd hour of tx. UF goal adjusted accordingly. Removed 3500/ 3700 UF goal. Stable upon DC from unit. Comments No concerns voiced post tx. documented in this encounter Plan of Treatment Upcoming Encounters Date Type Department Care Team (Late st Contact Info) Description 12/06/2024 6:45 EST Treatment [facility] [place] [address] [place] [id number] Carlota Jin MD 1 [facility], Level [address] [place] [address] 12/08/2024 6:45 EST Treatment [facility] [place] [address] [place] [address] Carlota Jin MD 1 [facility], [facility] [address] [place] [phone] 12/11/2024 6:45 EST Treatment [facility] [place] [address] [place] [address] Carlota Jin MD 1 [facility], [facility] [address] [place] [phone] 12/13/2024 6:45 EST Treatment [facility] [place] [address] [place] [address] Carlota Jin MD 1 [facility], [facility] [address] [place] [phone] 12/15/2024 6:45 EST Treatment [facility] [place] [address] [place] [address] Carlota Jin MD 1 [facility], [facility] [address] [place] [phone] 12/18/2024 6:45 EST Treatment [facility] [place] [address] [place] [address] Carlota Jin MD 1 [facility], [facility] [address] [place] [phone] 12/20/2024 6:45 EST Treatment [facility] [place] [address] [place], [place] [phone] Carlota Jin MD 1 [facility], [facility] [address] [place] [phone] 12/22/2024 6:45 EST Treatment [facility] [place] [address] [place], [place] [phone] Carlota Jin MD [address] [facility], [facility] 2 [place] [phone] 12/25/2024 6:45 EST Treatment [facility] [place] [address] [place], [place] [phone] Carlota Jin MD [address] [facility], [facility] 2 [place] [phone] 12/27/2024 6:45 EST Treatment [facility] [place] [address] [place] [address] Carlota Jin MD [address] [facility], [facility] 2 [place] [phone] 12/29/2024 6:45 EST Treatment [facility] [place] [address] [place], [place] [phone] Carlota Jin MD [address] [facility], [facility] 2 [place] [phone] 01/01/2025 6:45 EDT Treatment [facility] [place] [address] [place], [place] [phone] Carlota Jin MD 1 [facility], [facility] 2 [place] [phone] 01/03/2025 6:45 EDT Treatment [facility] [place] [address] [place], [place] [address] Carlota Jin MD 1 [facility], [facility] 2 [place] [phone] 01/05/2025 6:45 EDT Treatment [facility] [place] [address] [place] [address] Carl[address] Jin MD [address] [facility], [address] [phone] 01/08/2025 6:45 EDT Treatment [facility] [place] [address] [place], [place] [address] Carlota Jin MD [address] [facility], [address] [phone] 01/10/2025 6:45 EDT Treatment [facility] [place] [address] [place] [address] Carlota Jin MD [address] [facility], [address] [phone] 01/12/2025 6:45 EDT Treatment [facility] [place] [address] [place], [place] [phone] Carlota Jin MD [address] [phone] 01/15/2025 6:45 EDT Treatment [facility] [place] [address] [place], [place] [phone] Carlota Jin MD 1 [facility], [facility] 2 [place] [phone] 01/17/2025 6:45 EDT Treatment [facility] [place] [address] [place], [place] [phone] Carlota Jin MD 1 [facility], [facility] 2 [place] [phone] 01/19/2025 6:45 EDT Treatment [facility] [place] [address] [place], [place] [phone] Carlota Jin MD 1 [facility], [facility] 2 [place] [phone] 01/22/2025 6:45 EDT Treatment [facility] [place] [address] [place], [place] [phone] Carlota Jin MD [address] [facility], [facility] 2 [place] [phone] 01/24/2025 6:45 EDT Treatment [facility] [place] [address] [place], [place] [phone] Carlota Jin MD [address] [facility], [facility] 2 [place] [phone] 01/26/2025 6:45 EDT Treatment [facility] [address] [place], [place] [phone] Carlota Jin MD [address] [facility], [facility] 2 [place] [phone] 01/29/2025 6:45 EDT Treatment [facility] [place] [address] [place], [place] [address] Carlota Jin MD [address] [facility], [facility] 2 [place] [phone] 01/31/2025 6:45 EDT Treatment [facility] [place] [address] [place], [place] [phone] Carlota Jin MD [address] [facility], [facility] 2 [place] [phone] 02/02/2025 6:45 EDT Treatment [facility] [place] [address] [place], [place] [phone] Carlota Jin MD 1 [facility], [address] [phone] 02/05/2025 6:45 EDT Treatment [facility] [place] [address] [place], [place] [phone] Carlota Jin MD 1 [facility], [facility] 2 [place] [phone] 02/07/2025 6:45 EDT Treatment [facility] [place] [address] [place], [place] [phone] Carlota Jin MD 1 [facility], [facility] 2 [place] [phone] 02/09/2025 6:45 EDT Treatment [facility] [place] [address] [place], [place] [phone] Carlota Jin MD 1 [facility], [facility] 2 [place] [phone] 02/12/2025 6:45 EDT Treatment [facility] [place] [address] [place], [place] [address] Carlota Jin MD 1 [facility], [facility] 2 [place] [phone] 02/14/2025 6:45 EDT Treatment [facility] [place] [address] [place], [place] [phone] Carlota Jin MD 1 [facility], [facility] 2 [place] [phone] 02/16/2025 6:45 EDT Treatment [facility] [place] [address] [place], [place] [phone] Carlota Jin MD 1 [facility], [facility] 2 [place] [phone] 02/19/2025 6:45 EDT Treatment [facility] [place] [address] [place], [place] [phone] Carlota Jin MD 1 [facility], [facility] 2 [place] [phone] 02/21/2025 6:45 EDT Treatment [facility] [place] [address] [place], [place] [phone] Carlota Jin MD 1 [facility], [facility] 2 [place] [phone] documented as of this encounter Procedures Procedure Name Priority Date/Time Associated Diagnosis Comments POSTDIALYSIS BUN WITH URR CALCULATION Routine 04/26/2023 12:13 EDT ESRD (end stage renal disease) ([facility]) TRANSFERRIN SATURATION Routine 04/26/2023 7:10 EDT ESRD (end stage renal disease) ([facility]) DIALYSIS ROUTINE - DIALYSIS ONLY (BUN, K, NA, CL, CO2, SANJEEV, ALB, MG, PHOS, ALKP, AST) Routine 04/26/2023 7:10 EDT ESRD (end stage renal disease) ([facility]) PROFILE IRON STUDIES (INCLUDES IRON, IBC, AND FERRITIN) Routine 04/26/2023 7:10 EDT ESRD (end stage renal disease) ([facility]) HEPATITIS C AB W REFLEX TO HCV RNA BY PCR Routine 04/26/2023 7:10 EDT ESRD (end stage renal disease) ([facility]) PTH INTACT Routine 04/26/2023 7:10 EDT ESRD (end stage renal disease) ([facility]) Secondary hyperparathyroidism ([facility]) FERRITIN Routine 04/26/2023 7:10 EDT ESRD (end stage renal disease) ([facility]) HEMODIALYSIS Routine 04/26/2023 7:07 EDT ESRD (end stage renal disease) ([facility]) documented in this encounter Results * (ABNORMAL) POSTDIALYSIS BUN WITH URR CALCULATION (04/26/2023 12:13 EDT) BUN, Postdialysis 21 10 - 26 mg/dL 04/26/2023 21:48 EDT [facility] Urea Reduction Rate 71.2 Not Established % 04/26/2023 21:48 EDT [facility] Comment: NOTE: Reference range not established for Urea Reduction Rate. BUN 73(H) 10 - 26 mg/dL 04/26/2023 21:48 EDT [facility] Blood VENOUS BLOOD / Unknown Venipuncture / Unknown 04/26/2023 12:13 EDT 04/26/2023 12:13 EDT us Carlota Jin MD CHEMISTRY & BLOOD GAS ORD ERABLES Final Result Performing Organization Address [facility] Co de Phone Number [facility] [address] [place] [address] * (ABNORMAL) FERRITIN (04/26/2023 7:10 EDT) Ferritin 722(H) 22 - 322 ng/mL 04/27/2023 3:02 EDT [facility] Blood VENOUS BLOOD / Unknown Venipuncture / Unknown 04/26/2023 7:10 EDT 04/26/2023 7:10 EDT us Carlota Jin MD CHEMISTRY & BLOOD GAS ORD ERABLES Final Result Performing Organization Address [facility] Co de Phone Number [facility] [address] [place] [address] * TRANSFERRIN SATURATION (04/26/2023 7:10 EDT) Iron 51 49 - 181 ??g/dL 04/26/2023 21:55 EDT [facility] Iron Binding Capacity 244 240 - 450 ??g/dL 04/26/2023 21:55 EDT [facility] Transferrin Saturation 21 % 04/26/2023 21:55 EDT [facility] Blood VENOUS BLOOD / Unknown Venipuncture / Unknown 04/26/2023 7:10 EDT 04/26/2023 7:10 EDT us Carlota Jin MD CHEMISTRY & BLOOD GAS ORD ERABLES Final Result Performing Organization Address [facility]/ZIP Co de Phone Number [facility] [address] [place] [address] * HEPATITIS C AB W REFLEX TO HCV RNA BY PCR (04/26/2023 7:10 EDT) [facility] Hep C Antibody Negative Negative 04/27/2023 10:48 EDT [facility] Blood VENOUS BLOOD / Unknown Venipuncture / Unknown 04/26/2023 7:10 EDT 04/26/2023 7:10 EDT Carlota Jin MD CHEMISTRY & BLOOD GAS ORD ERABLES Final Result Performing Organization Address [facility]/ZIP Co de Phone Number [facility] [address] [place] [address] * (ABNORMAL) PTH INTACT (04/26/2023 7:10 EDT) [facility] Intact PTH 369(H) 19 - 88 pg/mL 04/27/2023 9:59 EDT [facility] Blood VENOUS BLOOD / Unknown Venipuncture / Unknown 04/26/2023 7:10 EDT 04/26/2023 7:10 EDT Carlota Jin MD CHEMISTRY & BLOOD GAS ORD ERABLES Final Result Performing Organization Address [facility] de Phone Number [facility] [address] [place] [address] * (ABNORMAL) DIALYSIS ROUTINE - DIALYSIS ONLY (BUN, K, NA, CL, CO2, SANJEEV, ALB, MG, PHOS, ALKP, AST) (04/26/2023 7:10 EDT) [facility] Sodium 137 136 - 145 mmol/L 04/26/2023 21:45 EDT [facility] Potassium 5.6(H) 3.5 - 5.0 mmol/L 04/26/2023 21:45 EDT [facility] Chloride 100 96 - 110 mmol/L 04/26/2023 21:45 EDT [facility] CO2 Total 23 22 - 32 mmol/L 04/26/2023 21:45 EDT [facility] Calcium 8.9 8.5 - 10.5 mg/dL 04/26/2023 21:45 EDT [facility] Albumin 3.3(L) 3.4 - 4.9 g/dL 04/26/2023 21:45 [facility] Phosphorus 7.2(H) 2.5 - 4.5 mg/dL 04/26/2023 21:45 [facility] Calcium Phos Product 64.1 See Note mg/dL 04/26/2023 21:45 [facility] Comment: NOTE: Reference range not established BUN, Predialysis 73(H) 10 - 26 mg/dL 04/26/2023 21:45 [facility] AST 21 15 - 46 U/L 04/26/2023 21:45 [facility] Alkaline Phosphatase 88 38 - 126 U/L 04/26/2023 21:45 [facility] Magnesium 2.4 1.7 - 2.8 mg/dL 04/26/2023 21:45 [facility] Anion Gap 14 5 - 14 mmol/L 04/26/2023 21:45 [facility] Calculated Calcium 9.5 8.9 - 10.5 mg/dL 04/26/2023 21:45 [facility] Blood VENOUS BLOOD / Unknown Venipuncture / Unknown 04/26/2023 7:10 EDT 04/26/2023 7:10 EDT us Carlota Jin MD CHEMISTRY & BLOOD GAS ORD ERABLES Final Result [facility] [address] [place] [address] documented in this encounter Visit Diagnoses Diagnosis ESRD (end stage renal disease) ([facility])- Primary End stage renal disease Secondary hyperparathyroidism ([facility]) Secondary hyperparathyroidism (of renal origin) Anemia of [...] oral, ONCE IN DIALYSIS, 1 dose, On Wed04/26/23 at 0730, Routine, DialysisIndications:ESRD (end stage renal disease) ([facility]),Secondary hyperparathyroidism ([facility]) Given 04/26/2023 8:28 EDT 2 Tablets epoetin ken (EPOGEN) 20,000 unit/2 mL injection 500 Units 500 Units, intravenous, ONCE IN DIALYSIS, 1 dose, On Wed04/26/23 at 0730, Routine, DialysisIndications:ESRD (end stage renal disease) ([facility]),Anemia of chronic renal failure, unspecified CKD stage Given 04/26/2023 8:27 EDT 500 Units heparin injection 9,000 Units 9,000 Units, intravenous, ONCE IN DIALYSIS, 1 dose, On Wed04/26/23 at 0730, Routine, Dialysis, Now x1 bolus 4500 units to be given at the beginning of dialysis 1500 units/hour to be given over the course of dialysis (9000 units total). Stop 1 hour prior to end of treatment. To be administered per Policy [id number].Indications:ESRD (end stage renal disease) ([facility]) Given 04/26/2023 7:17 EDT 9,000 Units LiquaCel liquid protein liquid 30 mL 30 mL, oral, ONCE IN DIALYSIS, 1 dose, On Wed04/26/23 at 0730, RoutineIndications:Hypoalbuminemi a,ESRD (end stage renal disease) ([facility]) Given 04/26/2023 8:27 EDT 30 mL documented in this encounter Orders Dialysis Count Last Ordered Date First Orde red Date HEMODIALYSIS 1 04/26/2023 documented in this encounter Care Teams Jewel Inspector Relationship Specialty Start Date End Date Adeola Villegas APRN [address] [place] [address] PCP - General 10/12/16 07/06/23 documented as of this encounter
--- OUTSIDE RECORDS SUMMARY | 2024-12-05 12:24 | XMS_ITS | Encounter Summary ---
Author Organization [facility] Address [address] [place] [address] Care Team Providers Care Vp Strategic Partnerships Name Role Phone Adeola Villegas APRN Primary Care Provider [phone] Encounter Details Date Type Department Care Team (Latest Contact Info) Description 04/21/2023 7:15 EDT Treatment [facility] [address] [place] [address] Carlota Jin MD 1 [facility], Level [address] [place] [address] ESRD (end stage renal disease) ([facility]) (Primary Dx); Anemia of chronic renal failure, unspecified CKD stage; Hypoalbuminemia; Secondary hyperparathyroidism ([facility]) Social History Tobacco Use [...] - Temperature - - Respiratory Rate 17 04/21/2023 1109 EDT Oxygen Saturation - - Inhaled Oxygen Concentration - - Weight 90.6 kg (199 lb 11.8 oz) 04/21/2023 0655 EDT Height - - Body Mass Index 29.07 01/25/2023 0751 EDT documented in this encounter Miscellaneous Notes * Flowsheet Note - Melissa Crespo RN - 04/21/2023 1628 EDT 04/21/23 1109 Post-Hemodialysis Assessment Total Blood Processed (L) 89.96 Liters On Line Clearance: spKt/V 1.49 spKt/V Dialyzer Clearance Lightly streaked Critline refill Not done Fluid Removed (L) 3.1 L Post-Dialysis Scale Weight 88.3 kg (194 lb 10.7 oz) Wheelchair Weight 0 kg (0 lb) Prosthesis Weight 1 kg (2 lb 3.3 oz) Post-Treatment Weight (kg) 87.3 Post Sitting/Lying BP 149/78 Post Sitting/Lying pulse 64 Post Standing BP 143/74 Post Standing Pulse 69 Temp 36.6 ??C (97.9 ??F) Temp src Temporal Resp 17 Post access assessment Bruit present: Yes Thrill Present AVF/AFG Hemostasis achieved Yes Note Patient held for 10 mins for blue clamps Orientation Alert and Oriented x3 Yes Time Yes Place Yes Person Yes Cooperative Yes Disoriented No Discharge Ambulation Methods Ambulatory with assistive device Ambulation device Walker Wrap up items Patient Response to Treatment Tolerated tx. Removed 3100 UF goal. Stable upon DC from unit. Comments No issues during tx, No concerns voiced post tx. * Dialysis Rounding - Skye Gomez NP - 04/21/2023 0715 EDT Dialysis Provider's Routine Assessment Gersonharish Kimaleks was seen and examined as appropriate during Dialysis. Pertinent lab results were reviewed. Changes since last visit: None Changes to current prescriptions/orders: None No acute issues. Skye Gomez NP documented in this encounter Plan of Treatment Upcoming Encounters Date Type Department Care Team (Late st Contact Info) Description 12/06/2024 6:45 EST Treatment [facility] [place] [address] [place] [address] Carl[facility] Jin MD 1 [facility] 2 [place] [phone] 12/08/2024 6:45 EST Treatment [facility] [place] [address] [place], [place] [id number] Carlota Jin MD 1 [facility], [facility] 2 [place] [phone] 12/11/2024 6:45 EST Treatment [facility] [place] [address] [place], [place] [id number] Carlota Jin MD 1 [facility], [facility] 2 [place] [phone] 12/13/2024 6:45 EST Treatment [facility] [place] [address] [place], [place] [id number] Carlota Jin MD 1 [facility], [facility] 2 [place] [phone] 12/15/2024 6:45 EST Treatment [facility] [place] [address] [place], [place] [id number] Carlota Jin MD 1 [facility], [facility] 2 [place] [phone] 12/18/2024 6:45 EST Treatment [facility] [place] [address] [place], [place] [id number] Carlota Jin MD 1 [facility], [facility] 2 [place] [phone] 12/20/2024 6:45 EST Treatment [facility] [place] [address] [place], [place] [phone] Carlota Jin MD 1 [facility], [facility] 2 [place] [phone] 12/22/2024 6:45 EST Treatment [facility] [place] [address] [place], [place] [id number] Carlota Jin MD 1 [facility], [facility] 2 [place] [phone] 12/25/2024 6:45 EST Treatment [facility] [place] [address] [place], [place] [id number] Carlota Jin MD 1 [facility], [facility] 2 [place] [phone] 12/27/2024 6:45 EST Treatment [facility] [place] [address] [place], [place] [id number] Carlota Jin MD 1 [facility], [facility] 2 [place] [phone] 12/29/2024 6:45 EST Treatment [facility] [place] [address] [place], [place] [phone] Carlota Jin MD 1 [facility], [facility] 2 [place] [phone] 01/01/2025 6:45 EDT Treatment [facility] [place] [address] [place] [address] Carlota Jin MD 1 [facility], [facility] 2 [place] [phone] 01/03/2025 6:45 EDT Treatment [facility] [place] [address] [place] [address] Carolta Jin MD 1 [facility], [facility] 2 [place] [phone] 01/05/2025 6:45 EDT Treatment [facility] [place] [address] [place] [address] Carlota Jin MD 1 [facility], [address] [phone] 01/08/2025 6:45 EDT Treatment [facility] [place] [address] [place] [address] Carlota Jin MD 1 [facility], [address] [phone] 01/10/2025 6:45 EDT Treatment [facility] [place] [address] [place] [address] Carlota Jin MD 1 [facility], [facility] 2 [place] [phone] 01/12/2025 6:45 EDT Treatment [facility] [place] [address] [place], [place] [phone] Carlota Jin MD 1 [facility], [facility] 2 [place] [phone] 01/15/2025 6:45 EDT Treatment [facility] [place] [address] [place], [place] [address] Carlota Jin MD 1 [facility], [facility] 2 [place] [phone] 01/17/2025 6:45 EDT Treatment [facility] [place] [address] [place], [place] [phone] Carlota Jin MD [address] [place] [address], [facility] 2 [place] [phone] 01/19/2025 6:45 EDT Treatment [facility] [place] [address] [place], [place] [address] Carlota Jin MD 1 [facility], [facility] 2 [place] [phone] 01/22/2025 6:45 EDT Treatment [facility] [place] [address] [place], [place] [address] Carlota Jin MD [address] [place] [address], [facility] 2 [place] [phone] 01/24/2025 6:45 EDT Treatment [facility] [place] [address] [place], [place] [phone] Carlota Jin MD 1 [facility], [facility] 2 [place] [phone] 01/26/2025 6:45 EDT Treatment [facility] [place] [address] [place], [place] [address] Carlota Jin MD 1 [facility], [address] [phone] 01/29/2025 6:45 EDT Treatment [facility] [place] [address] [place], [place] [phone] Carlota Jin MD 1 [facility], [address] [phone] 01/31/2025 6:45 EDT Treatment [facility] [place] [address] [place], [place] [id number] Carlota Jin MD 1 [facility], [address] [phone] 02/02/2025 6:45 EDT Treatment [facility] [place] [address] [place], [place] [phone] Carlota Jin MD [address] [phone] 02/05/2025 6:45 EDT Treatment [facility] [place] [address] [place], [place] [id number] Carlota Jin MD [address] [phone] 02/07/2025 6:45 EDT Treatment [facility] [place] [address] [place], [place] [phone] Carlota Jin MD 1 [facility], [address] [phone] 02/09/2025 6:45 EDT Treatment [facility] [place] [address] [place], [place] [phone] Carlota Jin MD 1 [facility], [facility] 2 [place] [phone] 02/12/2025 6:45 EDT Treatment [facility] [place] [address] [place], [place] [id number] Carlota Jin MD 1 [facility], [facility] 2 [place] [phone] 02/14/2025 6:45 EDT Treatment [facility] [place] [address] [place], [place] [phone] Carlota Jin MD 1 [facility], [address] [phone] 02/16/2025 6:45 EDT Treatment [facility] [place] [address] [place] [address] Carl[address] Jin MD 1 [facility], [facility] 2 [place] [phone] 02/19/2025 6:45 EDT Treatment [facility] [place] [address] [place], [place] [id number] Carlota Jin MD 1 [facility], [facility] 2 [place] [phone] 02/21/2025 6:45 EDT Treatment [facility] [place] [address] [place] [address] Carl[address] Jin MD 1 [facility], [address] [place] [address] documented as of this encounter Procedures Procedure Name Priority Date/Time Associated Diagnosis Comments COMPLETE BLOOD COUNT Routine 04/21/2023 6:58 EDT ESRD (end stage renal disease) ([facility]) HEMODIALYSIS Routine 04/21/2023 6:57 EDT ESRD (end stage renal disease) ([facility]) documented in this encounter Results * (ABNORMAL) COMPLETE BLOOD COUNT (04/21/2023 6:58 EDT) WBC 8.06 4.00 - 10.40 K/cmm 04/21/2023 21:37 [facility] RBC 2.94(L) 4.36 - 5.78 M/cmm 04/21/2023 21:37 [facility] Hemoglobin 9.4(L) 13.8 - 17.3 g/dL 04/21/2023 21:37 [facility] HCT 28.3(L) 39.5 - 50.2 % 04/21/2023 21:37 [facility] MCV 96(H) 81 - 95 fL 04/21/2023 21:37 [facility] MCH 32.0 27.6 - 33.0 pg 04/21/2023 21:37 [facility] MCHC 33.2 32.8 - 36.4 g/dL 04/21/2023 21:37 [facility] RDW-CV 12.0 <14.2 % 04/21/2023 21:37 [facility] RDW-SD 42.6 <46.0 fl 04/21/2023 21:37 [facility] PLT 237 141 - 377 K/cmm 04/21/2023 21:37 [facility] MPV 12.0 9.5 - 12.7 fL 04/21/2023 21:37 EDT [facility] Blood VENOUS BLOOD / Unknown Venipuncture / Unknown 04/21/2023 6:58 EDT 04/21/2023 6:59 EDT us Carlota Jin MD HEMATOLOGY & PF4 ORDERABL ES Final Result [facility] [address] [place] [address] documented in this encounter Visit Diagnoses Diagnosis ESRD (end stage renal disease) ([facility])- Primary End stage renal disease Anemia of chronic renal failure, unspecified CKD stage Hypoalbuminemia Other disorders of plasma protein metabolism Secondary hyperparathyroidism ([facility]) Secondary hyperparathyroidism (of renal origin) documented in this encounter Administered Medications Inactive Administered Medications - up to 3 most recent administrations Medication Order MAR Action Action Date Dose Rate Site calcium carbonate (TUMS) tablet 500 mg (200 mg elemental calcium) 2 Tablet 2 Tablet, oral, ONCE IN DIALYSIS, 1 dose, On Wed04/21/23 at 0715, Routine, DialysisIndications:ESRD (end stage renal disease) ([facility]),Secondary hyperparathyroidism ([facility]) Given 04/21/2023 9:29 EDT 2 Tablets epoetin ken (EPOGEN) 20,000 unit/2 mL injection 500 Units 500 Units, intravenous, ONCE IN DIALYSIS, 1 dose, On Wed04/21/23 at 0715, Routine, DialysisIndications:ESRD (end stage renal disease) ([facility]),Anemia of chronic renal failure, unspecified CKD stage Given 04/21/2023 9:28 EDT 500 Units heparin injection 9,000 Units 9,000 Units, intravenous, ONCE IN DIALYSIS, 1 dose, On Wed04/21/23 at 0715, Routine, Dialysis, Now x1 bolus 4500 units to be given at the beginning of dialysis 1500 units/hour to be given over the course of dialysis (9000 units total). Stop 1 hour prior to end of treatment. To be administered per Policy [id number].Indications:ESRD (end stage renal disease) ([facility]) Given 04/21/2023 7:07 EDT 9,000 Units LiquaCel liquid protein liquid 30 mL 30 mL, oral, ONCE IN DIALYSIS, 1 dose, On Wed04/21/23 at 0715, RoutineIndications:Hypoalbuminemi a,ESRD (end stage renal disease) ([facility]) Given 04/21/2023 9:28 EDT 30 mL documented in this encounter Orders Dialysis Count Last Ordered Date First Orde red Date HEMODIALYSIS 1 04/21/2023 documented in this encounter Care Teams Vp Strategic Partnerships Relationship Specialty Start Date End Date Adeola Villegas APRN [facility] [address] [place] [address] PCP - General 10/12/16 07/06/23 documented as of this encounter
--- OUTSIDE RECORDS SUMMARY | 2024-12-05 12:24 | XMS_ITS | Encounter Summary ---
Author Organization [facility] Address [address] [place] [address] Care Team Providers Care Circulation Clerk Name Role Phone Adeola Villegas APRN Primary Care Provider [phone] Encounter Details Date Type Department Care Team (Latest Contact Info) Description 04/16/2023 Documentation Visit [facility] [address] [place] [id number] Melissa Crespo, VIDYA Anemia of chronic renal failure, unspecified CKD stage (Primary Dx) Social History Tobacco Use Types [...] 6:45 EST Treatment [facility] [address] [place] [id number] Carlota Jin MD 1 [facility], Level [address] [place] [phone] 12/08/2024 6:45 EST Treatment [facility] [address] [place] [id number] Carlota Jin MD 1 [facility], Level [address] [place] [phone] 12/11/2024 6:45 EST Treatment [facility] [place] [address] [place], [place] [phone] Carlota Jin MD 1 [facility], [facility] 2 [place] [phone] 12/13/2024 6:45 EST Treatment [facility] [place] [address] [place], [place] [id number] Carlota Jin MD 1 [facility], [facility] 2 [place] [phone] 12/15/2024 6:45 EST Treatment [facility] [place] [address] [place], [place] [id number] Carlota Jin MD 1 [facility], [facility] [address] [place] [phone] 12/18/2024 6:45 EST Treatment [facility] [place] [address] [place], [place] [phone] Carlota Jin MD 1 [facility], [facility] 2 [place] [phone] 12/20/2024 6:45 EST Treatment [facility] [place] [address] [place], [place] [phone] Carlota Jin MD 1 [facility], [facility] 2 [place] [phone] 12/22/2024 6:45 EST Treatment [facility] [place] [address] [place], [place] [phone] Carlota Jin MD 1 [facility], [facility] [address] [place] [phone] 12/25/2024 6:45 EST Treatment [facility] [place] [address] [place], [place] [phone] Carlota Jin MD 1 [facility], [facility] 2 [place] [phone] 12/27/2024 6:45 EST Treatment [facility] [place] [address] [place], [place] [phone] Carlota Jin MD [address] [place] [address], [facility] 2 [place] [phone] 12/29/2024 6:45 EST Treatment [facility] [place] [address] [place], [place] [phone] Carlota Jin MD [address] [place] [address], [facility] [address] [place] [phone] 01/01/2025 6:45 EDT Treatment [facility] [place] [address] [place], [place] [id number] Carlota Jin MD 1 [facility], [facility] [address] [place] [phone] 01/03/2025 6:45 EDT Treatment [facility] [place] [address] [place], [place] [phone] Carlota Jin MD 1 [facility], [facility] 2 [place] [phone] 01/05/2025 6:45 EDT Treatment [facility] [place] [address] [place], [place] [id number] Carlota Jin MD 1 [facility], [facility] 2 [place] [phone] 01/08/2025 6:45 EDT Treatment [facility] [place] [address] [place] [address] Carlota Jin MD 1 [facility], [address] [phone] 01/10/2025 6:45 EDT Treatment [facility] [place] [address] [place], [place] [phone] Carlota Jin MD 1 [facility], [address] [phone] 01/12/2025 6:45 EDT Treatment [facility] [place] [address] [place] [address] Carlota Jin MD 1 [facility], [facility] [address] [place] [phone] 01/15/2025 6:45 EDT Treatment [facility] [place] [address] [place], [place] [id number] Carlota Jin MD 1 [facility], [facility] 2 [place] [phone] 01/17/2025 6:45 EDT Treatment [facility] [place] [address] [place], [place] [address] Carlota Jin MD 1 [facility], [facility] 2 [place] [phone] 01/19/2025 6:45 EDT Treatment [facility] [place] [address] [place], [place] [phone] Carlota Jin MD 1 [facility], [facility] 2 [place] [phone] 01/22/2025 6:45 EDT Treatment [facility] [place] [address] [place], [place] [address] Carlota Jin MD 1 [facility], [address] [phone] 01/24/2025 6:45 EDT Treatment [facility] [place] [address] [place], [place] [address] Carlota Jin MD 1 [facility], [facility] 2 [place] [phone] 01/26/2025 6:45 EDT Treatment [facility] [place] [address] [place], [place] [id number] Carlota Jin MD 1 [facility], [facility] 2 [place] [phone] 01/29/2025 6:45 EDT Treatment [facility] [place] [address] [place], [place] [address] Carlota Jin MD 1 [facility], [address] [phone] 01/31/2025 6:45 EDT Treatment [facility] [place] [address] [place], [place] [address] [phone] Carlota Jin MD 1 [facility], [address] [phone] 02/02/2025 6:45 EDT Treatment [facility] [place] [address] [place], [place] [address] Carlota Jin MD 1 [facility], [place] [phone] 02/05/2025 6:45 EDT Treatment [facility] [place] [address] [place] [address] Carlota Jin MD 1 [facility], [address] [phone] 02/07/2025 6:45 EDT Treatment [facility] [place] [address] [place], [place] [id number] Carlota Jin MD [address] [phone] 02/09/2025 6:45 EDT Treatment [facility] [place] [address] [place], [place] [address] Carlota Jin MD 1 [facility], [address] [phone] 02/12/2025 6:45 EDT Treatment [facility] [place] [address] [place], [place] [phone] Carlota Jin MD 1 [facility], [address] [phone] 02/14/2025 6:45 EDT Treatment [facility] [place] [address] [place], [place] [phone] Carlota Jin MD [address] [phone] 02/16/2025 6:45 EDT Treatment [facility] [place] [address] [place], [place] [id number] Carlota Jin MD [address] [phone] 02/19/2025 6:45 EDT Treatment [facility] [place] [address] [place], [place] [phone] Carlota Jin MD 1 [facility], [address] [phone] 02/21/2025 6:45 EDT Treatment [facility] [place] [address] [place], [place] [phone] Carlota Jin MD 1 [facility], [address] [phone] documented as of this encounter Visit Diagnoses Diagnosis Anemia of chronic renal failure, unspecified CKD stage- Primary documented in this encounter Care Teams Circulation Clerk Relationship Specialty Start Date End Date Adeola Villegas APRN [address] [place] [address] PCP - General 10/12/16 07/06/23 documented as of this encounter
--- OUTSIDE RECORDS SUMMARY | 2024-12-05 12:24 | XMS_ITS | Encounter Summary ---
Author Organization [facility] Address [address] [place] [address] Care Team Providers Care Cyber Security Manager Name Role Phone Adeola Villegas APRN Primary Care Provider [phone] Encounter Details Date Type Department Care Team (Latest Contact Info) Description 04/19/2023 7:15 EDT Treatment [facility] [address] [place] [address] Carlota Jin MD 1 [facility], Level 2 [place] [address] ESRD (end stage renal disease) ([facility]) (Primary Dx); Anemia of chronic renal failure, unspecified CKD stage; Hypoalbuminemia; Secondary hyperparathyroidism ([facility]) Social History Tobacco Use Types Packs/Day [...] - Temperature - - Respiratory Rate 16 04/19/2023 0654 EDT Oxygen Saturation - - Inhaled Oxygen Concentration - - Weight 89.9 kg (198 lb 3.1 oz) 04/19/2023 0656 E DT Height - - Body Mass Index 28.85 01/25/2023 0751 EDT documented in this encounter Miscellaneous Notes * Flowsheet Note - Melissa Crespo RN - 04/19/2023 1305 EDT 04/19/23 1154 Post-Hemodialysis Assessment Total Blood Processed (L) 89.62 Liters On Line Clearance: spKt/V 1.47 spKt/V Dialyzer Clearance Lightly streaked Fluid Removed (L) 2.4 L Post-Dialysis Scale Weight 88.6 kg (195 lb 5.2 oz) Wheelchair Weight 0 kg (0 lb) Prosthesis Weight 1 kg (2 lb 3.3 oz) Post-Treatment Weight (kg) 87.6 Post Sitting/Lying BP 151/76 Post Sitting/Lying pulse 63 Post Standing BP 132/73 Post Standing Pulse 66 Temp 36.4 ??C (97.5 ??F) Temp src Skin Post access assessment AVF/AFG Hemostasis achieved Yes Orientation Alert and Oriented x3 Yes Cooperative Yes Disoriented No Discharge Ambulation Methods Ambulatory without assistance Wrap up items Patient Response to Treatment Tolerated tx. Removed 400 UF goal. Stable upon DC from unit. Comments No issues during tx, No concerns voiced post tx. documented in this encounter Plan of Treatment Upcoming Encounters Date Type Department Care Team (Late st Contact Info) Description 12/06/2024 6:45 EST Treatment [facility] [address] [place], [place] [id number] Carlota Jin MD [address] [place] [address], [facility] 2 [place] [address] 12/08/2024 6:45 EST Treatment [facility] [address] [place] [id number] Carlota Jin MD 1 [facility] 2 [place] [phone] 12/11/2024 6:45 EST Treatment [facility] [place] [address] [place], [place] [id number] Carlota Jin MD 1 [facility], [facility] 2 [place] [phone] 12/13/2024 6:45 EST Treatment [facility] [place] [address] [place], [place] [phone] Carlota Jin MD 1 [facility], [facility] 2 [place] [phone] 12/15/2024 6:45 EST Treatment [facility] [place] [address] [place], [place] [id number] Carlota Jin MD 1 [facility], [facility] 2 [place] [phone] 12/18/2024 6:45 EST Treatment [facility] [place] [address] [place], [place] [phone] Carlota Jin MD 1 [facility], [facility] 2 [place] [phone] 12/20/2024 6:45 EST Treatment [facility] [place] [address] [place], [place] [id number] Carlota Jin MD 1 [facility], [facility] 2 [place] [phone] 12/22/2024 6:45 EST Treatment [facility] [place] [address] [place], [place] [id number] Carlota Jin MD 1 [facility], [facility] 2 [place] [phone] 12/25/2024 6:45 EST Treatment [facility] [place] [address] [place], [place] [phone] Carlota Jin MD 1 [facility], [facility] 2 [place] [phone] 12/27/2024 6:45 EST Treatment [facility] [address] [place], [place] [phone] Carlota Jin MD 1 [facility], [facility] 2 [place] [phone] 12/29/2024 6:45 EST Treatment [facility] [place] [address] [place], [place] [phone] Carlota Jin MD 1 [facility], [facility] 2 [place] [phone] 01/01/2025 6:45 EDT Treatment [facility] [address] [place] [address] Carlota Jin MD 1 [facility], [facility] 2 [place] [phone] 01/03/2025 6:45 EDT Treatment [facility] [address] [place], [place] [id number] Carlota Jin MD 1 [facility], [facility] 2 [place] [phone] 01/05/2025 6:45 EDT Treatment [facility] [place] [address] [place], [place] [phone] Carlota Jin MD 1 [facility], [facility] 2 [place] [phone] 01/08/2025 6:45 EDT Treatment [facility] [place] [address] [place], [place] [id number] Carlota Jin MD [address] [place] [address], [address] [phone] 01/10/2025 6:45 EDT Treatment [facility] [place] [address] [place], [place] [phone] Carlota Jin MD [address] [place] [address], [address] [phone] 01/12/2025 6:45 EDT Treatment [facility] [place] [address] [place], [place] [phone] Carlota Jin MD [address] [place] [address], [facility] 2 [place] [phone] 01/15/2025 6:45 EDT Treatment [facility] [place] [address] [place], [place] [phone] Carlota Jin MD 1 [facility], [facility] 2 [place] [phone] 01/17/2025 6:45 EDT Treatment [facility] [place] [address] [place], [place] [phone] Carlota Jin MD 1 [facility], [facility] 2 [place] [phone] 01/19/2025 6:45 EDT Treatment [facility] [place] [address] [place], [place] [address] Carlota Jin MD 1 [facility], [facility] 2 [place] [phone] 01/22/2025 6:45 EDT Treatment [facility] [place] [address] [place] [address] [address] MD 1 [facility], [facility] 2 [place] [phone] 01/24/2025 6:45 EDT Treatment [facility] [place] [address] [place] [address] Carlota Jin MD 1 [facility], [facility] 2 [place] [phone] 01/26/2025 6:45 EDT Treatment [facility] [place] [address] [place] [address] Carlota Jin MD 1 [facility], [facility] 2 [place] [phone] 01/29/2025 6:45 EDT Treatment [facility] [place] [address] [place], [place] [phone] Carlota Jin MD 1 [facility], [facility] 2 [place] [phone] 01/31/2025 6:45 EDT Treatment [facility] [place] [address] [place], [place] [id number] Carlota Jin MD 1 [facility], [facility] 2 [place] [phone] 02/02/2025 6:45 EDT Treatment [facility] [place] [address] [place], [place] [phone] Carlota Jin MD 1 [facility], [facility] 2 [place] [phone] 02/05/2025 6:45 EDT Treatment [facility] [place] [address] [place] [address] Carlota Jin MD 1 [facility], [address] [phone] 02/07/2025 6:45 EDT Treatment [facility] [place] [address] [place], [place] [phone] Carlota Jin MD 1 [facility], [facility] 2 [place] [phone] 02/09/2025 6:45 EDT Treatment [facility] [place] [address] [place], [place] [phone] Carlota Jin MD 1 [facility], [facility] 2 [place] [phone] 02/12/2025 6:45 EDT Treatment [facility] [place] [address] [place], [place] [phone] Carlota Jin MD 1 [facility], [address] [phone] 02/14/2025 6:45 EDT Treatment [facility] [place] [address] [place], [place] [phone] Carlota Jin MD 1 [facility], [address] [phone] 02/16/2025 6:45 EDT Treatment [facility] [place] [address] [place], [place] [phone] Carlota Jin MD [address] [phone] 02/19/2025 6:45 EDT Treatment [facility] [place] [address] [place], [place] [id number] Carlota Jin MD 1 [facility], [address] [phone] 02/21/2025 6:45 EDT Treatment [facility] [address] [place], [place] [phone] Carlota Jin MD [address] [phone] documented as of this encounter Procedures Procedure Name Priority Date/Time Associated Diagnosis Comments HEMODIALYSIS Routine 04/19/2023 6:54 EDT ESRD (end stage renal disease) ([facility]) documented in this encounter Visit Diagnoses Diagnosis ESRD (end stage renal disease) ([facility])- Primary End stage renal [...] oral, EVERY 4 HOURS PRN, Starting on Wed04/19/23 at 0705, Until Wed04/19/23 at 1505, Pain, Routine, DialysisIndications:ESRD (end stage renal disease) (HCC-CMS) Given 04/19/2023 7:06 EDT 650 mg calcium carbonate (TUMS) tablet 500 mg (200 mg elemental calcium) 2 Tablet 2 Tablet, oral, ONCE IN DIALYSIS, 1 dose, On Wed04/19/23 at 0715, Routine, DialysisIndications:ESRD (end stage renal disease) ([facility]),Secondary hyperparathyroidism (HCC-CMS) Given 04/19/2023 8:03 EDT 2 Tablets epoetin ken (EPOGEN) 20,000 unit/2 mL injection 500 Units 500 Units, intravenous, ONCE IN DIALYSIS, 1 dose, On Wed04/19/23 at 0715, Routine, DialysisIndications:ESRD (end stage renal disease) ([facility]),Anemia of chronic renal failure, unspecified CKD stage Given 04/19/2023 8:02 EDT 500 Units heparin injection 9,000 Units 9,000 Units, intravenous, ONCE IN DIALYSIS, 1 dose, On Wed04/19/23 at 0715, Routine, Dialysis, Now x1 bolus 4500 units to be given at the beginning of dialysis 1500 units/hour to be given over the course of dialysis (9000 units total). Stop 1 hour prior to end of treatment. To be administered per Policy [id number].Indications:ESRD (end stage renal disease) ([facility]) Given 04/19/2023 7:08 EDT 9,000 Units LiquaCel liquid protein liquid 30 mL 30 mL, oral, ONCE IN DIALYSIS, 1 dose, On Wed04/19/23 at 0715, RoutineIndications:Hypoalbuminemi a,ESRD (end stage renal disease) ([facility]) Given 04/19/2023 8:02 EDT 30 mL documented in this encounter Orders Dialysis Count Last Ordered Date First Orde red Date HEMODIALYSIS 1 04/19/2023 documented in this encounter Care Teams Cyber Security Manager Relationship Specialty Start Date End Date Adeola Villegas APRN [address] [place] [address] PCP - General 10/12/16 07/06/23 documented as of this encounter
--- OUTSIDE RECORDS SUMMARY | 2024-12-05 12:25 | XMS_ITS | Encounter Summary ---
Author Organization [facility] Address [address] [place] [address] Care Team Providers Care Dispatcher Refinery Name Role Phone Adeola Villegas MONA Primary Care Provider [phone] Encounter Details Date Type Department Care Team (Late st Contact Info) Description 03/26/2023 7:15 EDT Treatment [facility] [address] [place], [place] [phone] Carlota Jin MD 1 [facility], Level [address] [place] [address] ESRD (end stage renal disease) ([facility]) (Primary Dx); Anemia of chronic renal failure, unspecified CKD stage; Abnormal albumin Social History Tobacco Use Types Packs/Day Years [...] - Temperature - - Respiratory Rate 17 03/26/2023 0701 EDT Oxygen Saturation - - Inhaled Oxygen Concentration - - Weight 88.3 kg (194 lb 10.7 oz) 03/26/2023 0701 EDT Height - - Body Mass Index 28.34 01/25/2023 0751 EDT documented in this encounter Progress Notes * Chad Cabrera RN - 03/26/2023 0715 EDT CRIT-LINE 1. Profile: A 2. Blood volume: -6.6% 3. O2 sat min: 87.9% 4. Refill: Negative. documented in this encounter Miscellaneous Notes * Flowsheet Note - Chad Cabrera RN - 03/26/2023 1208 EDT 03/26/23 1117 Post-Hemodialysis Assessment Total Blood Processed (L) 89.69 Liters On Line Clearance: spKt/V 1.46 spKt/V Dialyzer Clearance Lightly streaked Treatment UFR (ml:kg:hr) -0.56 ml:kg:hr Final Critline Profile (%/hr) -1.64 Final Profile Profile A Critline refill Negative Fluid Removed (L) 0.8 L Post-Dialysis Scale Weight 88.5 kg (195 lb 1.7 oz) Wheelchair Weight 0 kg (0 lb) Prosthesis Weight 0 kg (0 lb) Post-Treatment Weight (kg) 88.5 Treatment Weight Change (kg) -0.2 kg Day Target Weight (kg) 88 Post Sitting/Lying BP 165/82 Post Sitting/Lying pulse 66 Post Standing BP 127/75 Post Standing Pulse 68 Temp 36.7 ??C (98.1 ??F) Temp src Temporal Post access assessment AVF/AFG Hemostasis achieved Yes Note 10 min hold Orientation Alert and Oriented x3 Yes Cooperative Yes Disoriented No Discharge Ambulation Methods Ambulatory without assistance Wrap up items Report called to floor NA Patient Response to Treatment Patient tolerated HD treatment without issue. UF goal was met. Patient discharged home stable. documented in this encounter Plan of Treatment Upcoming Encounters Date Type Department Care Team (Late st Contact Info) Description 12/06/2024 6:45 EST Treatment [facility] [place] [address] [place] [address] Carlota Jin MD 1 [facility], Level [address] [place] [phone] 12/08/2024 6:45 EST Treatment [facility] [place] [address] [place], [place] [address] Carlota Jin MD 1 [facility], [facility] 2 [place] [phone] 12/11/2024 6:45 EST Treatment [facility] [place] [address] [place], [place] [phone] Carlota Jin MD 1 [facility], [facility] 2 [place] [phone] 12/13/2024 6:45 EST Treatment [facility] [place] [address] [place], [place] [phone] Carlota Jin MD 1 [facility], [facility] 2 [place] [phone] 12/15/2024 6:45 EST Treatment [facility] [place] [address] [place] [address] Carlota Jin MD 1 [facility], [facility] 2 [place] [phone] 12/18/2024 6:45 EST Treatment [facility] [place] [address] [place], [place] [phone] Carlota Jin MD 1 [facility], [facility] 2 [place] [phone] 12/20/2024 6:45 EST Treatment [facility] [place] [address] [place], [place] [phone] Carlota Jin MD [address] [facility], [facility] 2 [place] [phone] 12/22/2024 6:45 EST Treatment [facility] [place] [address] [place], [place] [phone] Carlota Jin MD [address] [facility], [facility] 2 [place] [phone] 12/25/2024 6:45 EST Treatment [facility] [place] [address] [place], [place] [phone] Cralota Jin MD [address] [facility], [facility] 2 [place] [phone] 12/27/2024 6:45 EST Treatment [facility] [place] [address] [place], [place] [phone] Carlota Jin MD [address] [facility], [facility] 2 [place] [phone] 12/29/2024 6:45 EST Treatment [facility] [place] [address] [place], [place] [id number] Carlota Jin MD [address] [facility], [facility] 2 [place] [phone] 01/01/2025 6:45 EDT Treatment [facility] [place] [address] [place], [place] [phone] Carlota Jin MD 1 [facility], Level [address] [place] [phone] 01/03/2025 6:45 EDT Treatment [facility] [place] [address] [place], [place] [address] Carlota Jin MD 1 [facility], [facility] 2 [place] [phone] 01/05/2025 6:45 EDT Treatment [facility] [address] [place], [place] [phone] Carlota Jin MD [address] [facility], [facility] 2 [place] [phone] 01/08/2025 6:45 EDT Treatment [facility] [place] [address] [place] [address] Carlota Jin MD 1 [facility], [facility] 2 [place] [phone] 01/10/2025 6:45 EDT Treatment [facility] [address] [place], [place] [phone] Carlota Jin MD 1 [facility], [facility] 2 [place] [phone] 01/12/2025 6:45 EDT Treatment [facility] [address] [place], [place] [phone] Carlota Jin MD 1 [facility], [facility] 2 [place] [phone] 01/15/2025 6:45 EDT Treatment [facility] [place] [address] [place], [place] [id number] Carlota Jin MD [address] [facility], [facility] 2 [place] [phone] 01/17/2025 6:45 EDT Treatment [facility] [place] [address] [place], [place] [id number] Carlota Jin MD [address] [facility], [facility] 2 [place] [phone] 01/19/2025 6:45 EDT Treatment [facility] [place] [address] [place], [place] [phone] Carlota Jin MD [address] [place] [address], [facility] 2 [place] [phone] 01/22/2025 6:45 EDT Treatment [facility] [place] [address] [place], [place] [phone] Carlota Jin MD [address] [facility], [facility] 2 [place] [phone] 01/24/2025 6:45 EDT Treatment [facility] [place] [address] [place], [place] [phone] Carlota Jin MD [address] [facility], [facility] 2 [place] [phone] 01/26/2025 6:45 EDT Treatment [facility] [place] [address] [place], [place] [phone] Carlota Jin MD 1 [facility], [facility] 2 [place] [phone] 01/29/2025 6:45 EDT Treatment [facility] [place] [address] [place], [place] [phone] Carlota Jin MD 1 [facility], [facility] 2 [place] [phone] 01/31/2025 6:45 EDT Treatment [facility] [place] [address] [place] [address] [address] Jni MD 1 [facility], [address] [phone] 02/02/2025 6:45 EDT Treatment [facility] [place] [address] [place], [place] [phone] Carlota Jin MD 1 [facility], [address] [phone] 02/05/2025 6:45 EDT Treatment [facility] [place] [address] [place] [address] Carlota Jin MD 1 [facility], [facility] 2 [place] [phone] 02/07/2025 6:45 EDT Treatment [facility] [place] [address] [place], [place] [phone] Carlota Jin MD [address] [facility], [facility] 2 [place] [phone] 02/09/2025 6:45 EDT Treatment [facility] [place] [address] [place], [place] [address] Carlota Jin MD 1 [facility], [facility] 2 [place] [phone] 02/12/2025 6:45 EDT Treatment [facility] [place] [address] [place], [place] [phone] Carlota Jin MD [address] [facility], [facility] 2 [place] [phone] 02/14/2025 6:45 EDT Treatment [facility] [place] [address] [place], [place] [address] Carlota Jin MD 1 [facility], [address] [phone] 02/16/2025 6:45 EDT Treatment [facility] [place] [address] [place], [place] [address] Carlota Jin MD 1 [facility], [facility] 2 [place] [phone] 02/19/2025 6:45 EDT Treatment [facility] [place] [address] [place], [place] [phone] Carlota Jin MD [address] [facility], [facility] 2 [place] [phone] 02/21/2025 6:45 EDT Treatment [facility] [place] [address] [place] [address] Carlota Jin MD [address] [facility], [address] [place] [phone] documented as of this encounter Procedures Procedure Name Priority Date/Time Associated Diagnosis Comments HEMODIALYSIS Routine 03/26/2023 7:01 EDT ESRD (end stage renal disease) ([facility]) documented in this encounter Visit Diagnoses Diagnosis ESRD (end stage renal disease) ([facility])- Primary End stage renal disease Anemia of chronic renal failure, unspecified CKD stage Abnormal albumin Other nonspecific findings on examination of blood documented in this encounter Administered Medications Inactive Administered Medications - up to 3 most recent administrations Medication Order MAR Action Action Date Dose Rate Site epoetin ken (EPOGEN) 20,000 unit/2 mL injection 500 Units 500 Units, intravenous, ONCE IN DIALYSIS, 1 dose, On Wed03/26/23 at 0730, Routine, DialysisIndications:ESRD (end stage renal disease) ([facility]),Anemia of chronic renal failure, unspecified CKD stage Given 03/26/2023 9:30 EDT 500 Units heparin injection 9,000 Units 9,000 Units, intravenous, ONCE IN DIALYSIS, 1 dose, On Wed03/26/23 at 0730, Routine, Dialysis, Now x1 bolus 4500 units to be given at the beginning of dialysis 1500 units/hour to be given over the course of dialysis (9000 units total). Stop 1 hour prior to end of treatment. To be administered per Policy [id number].Indications:ESRD (end stage renal disease) ([facility]) Given 03/26/2023 7:16 EDT 9,000 Units nepro w/ carb steady bolus 237 mL 237 mL (1 Package), oral, ONCE IN DIALYSIS, 1 dose, On Wed03/26/23 at 0730, RoutineIndications:ESRD (end stage renal disease) ([facility]),Abnormal albumin Given 03/26/2023 9:30 EDT 237 mL documented in this encounter Orders Dialysis Count Last Ordered Date First Orde red Date HEMODIALYSIS 1 03/26/2023 documented in this encounter Care Teams Dispatcher Refinery Relationship Specialty Start Date End Date Adeola Villegas APRN [address] [place] [address] PCP - General 10/12/16 07/06/23 documented as of this encounter
--- OUTSIDE RECORDS SUMMARY | 2024-12-05 12:25 | XMS_ITS | Encounter Summary ---
Author Organization [facility] Address [address] [place] [address] Care Team Providers Care Chiropractic Neurologist Name Role Phone Adeola Villegas MONA Primary Care Provider [phone] Encounter Details Date Type Department Care Team (Late st Contact Info) Description 04/07/2023 Documentation Visit [facility] [address] [place], [place] [address] Melissa Crespo, RN Social History Tobacco Use [...] as of this encounter Progress Notes * Melissa Crespo, RN - 04/07/2023 0957 EDT 04/07/23 10:00 [facility]ONCILI[facility] Medication review of home medications (prescriptions, [id number]-xreneba, herbals, vitamin/mineral/dietary (nutritional) supplements, medical marijuana, and [...] ??? furosemide (LASIX) 20 mg tablet ??? hydroCHLOROthiazide (HYDRODIURIL) 25 mg tablet ??? hydrOXYzine (ATARAX) 25 mg tablet ??? LEVEMIR FLEXPEN 100 unit/mL (3 mL) injectable pen ??? magnesium oxide (MAG-OX) 400 mg (241.3 mg magnesium) tablet ??? MULTIVITAMIN ORAL ??? nortriptyline (PAMELOR) 25 mg capsule ??? pregabalin (LYRICA) 100 mg capsule ??? sevelamer hydrochloride (RENAGEL) 800 mg tablet No current facility-administered medications for this visit. Melissa Crespo RN documented in this encounter Plan of Treatment Upcoming Encounters Date Type Department Care Team (Late st Contact Info) Description 12/06/2024 6:45 EST Treatment [facility] [address] [place], [place] [id number] Carlota Jin MD [address] [place] [address], [facility] 2 [place] [address] 12/08/2024 6:45 EST Treatment [facility] [address] [place] [id number] Carlota Jin MD [address] [place] [address], [facility] 2 [place] [address] 12/11/2024 6:45 EST Treatment [facility] [address] [place] [id number] Carlota Jin MD 1 [facility] 2 [place] [phone] 12/13/2024 6:45 EST Treatment [facility] [place] [address] [place], [place] [id number] Carlota Jin MD 1 [facility], [facility] 2 [place] [phone] 12/15/2024 6:45 EST Treatment [facility] [place] [address] [place], [place] [id number] Carlota Jin MD 1 [facility], [facility] 2 [place] [phone] 12/18/2024 6:45 EST Treatment [facility] [place] [address] [place], [place] [id number] Carlota Jin MD 1 [facility], [facility] 2 [place] [phone] 12/20/2024 6:45 EST Treatment [facility] [place] [address] [place], [place] [id number] Carlota Jin MD 1 [facility], [facility] 2 [place] [phone] 12/22/2024 6:45 EST Treatment [facility] [place] [address] [place], [place] [id number] Carlota Jin MD 1 [facility], [facility] 2 [place] [phone] 12/25/2024 6:45 EST Treatment [facility] [place] [address] [place], [place] [id number] Carlota Jin MD 1 [facility], [facility] 2 [place] [phone] 12/27/2024 6:45 EST Treatment [facility] [place] [address] [place], [place] [id number] Carlota Jin MD 1 [facility], [facility] 2 [place] [phone] 12/29/2024 6:45 EST Treatment [facility] [place] [address] [place] [address] Carlota Jin MD 1 [facility], [address] [phone] 01/01/2025 6:45 EDT Treatment [facility] [place] [address] [place], [place] [id number] Carlota Jin MD 1 [facility], [facility] 2 [place] [phone] 01/03/2025 6:45 EDT Treatment [facility] [place] [address] [place], [place] [phone] Carlota Jin MD 1 [facility], [facility] 2 [place] [phone] 01/05/2025 6:45 EDT Treatment [facility] [place] [address] [place] [address] Carlota Jin MD 1 [facility], [facility] 2 [place] [phone] 01/08/2025 6:45 EDT Treatment [facility] [place] [address] [place], [place] [id number] Carlota Jin MD 1 [facility], [facility] 2 [place] [phone] 01/10/2025 6:45 EDT Treatment [facility] [place] [address] [place] [address] Carlota Jin MD 1 [facility], [address] [phone] 01/12/2025 6:45 EDT Treatment [facility] [place] [address] [place], [place] [id number] Carlota Jin MD 1 [facility], [address] [phone] 01/15/2025 6:45 EDT Treatment [facility] [place] [address] [place] [address] Carlota Jin MD 1 [facility], [facility] 2 [place] [phone] 01/17/2025 6:45 EDT Treatment [facility] [place] [address] [place], [place] [id number] Carlota Jin MD 1 [facility], [facility] 2 [place] [phone] 01/19/2025 6:45 EDT Treatment [facility] [place] [address] [place], [place] [address] Carlota Jin MD 1 [facility], [facility] 2 [place] [phone] 01/22/2025 6:45 EDT Treatment [facility] [place] [address] [place], [place] [id number] Carlota Jin MD [address] [place] [address], [facility] 2 [place] [phone] 01/24/2025 6:45 EDT Treatment [facility] [place] [address] [place], [place] [address] Carlota Jin MD 1 [facility], [facility] 2 [place] [phone] 01/26/2025 6:45 EDT Treatment [facility] [place] [address] [place], [place] [address] Carlota Jin MD [address] [place] [address], [facility] 2 [place] [phone] 01/29/2025 6:45 EDT Treatment [facility] [place] [address] [place], [place] [id number] Carlota Jin MD [address] [place] [address], [facility] 2 [place] [phone] 01/31/2025 6:45 EDT Treatment [facility] [place] [address] [place], [place] [address] Carlota Jin MD 1 [facility], [address] [phone] 02/02/2025 6:45 EDT Treatment [facility] [place] [address] [place] [address] Carlota Jin MD 1 [facility], [address] [phone] 02/05/2025 6:45 EDT Treatment [facility] [place] [address] [place], [place] [id number] Carlota Jin MD 1 [facility], [address] [phone] 02/07/2025 6:45 EDT Treatment [facility] [place] [address] [place], [place] [id number] Carlota Jin MD 1 [facility], [address] [phone] 02/09/2025 6:45 EDT Treatment [facility] [place] [address] [place], [place] [id number] Carlota Jin MD [address] [phone] 02/12/2025 6:45 EDT Treatment [facility] [place] [address] [place], [place] [id number] Carlota Jin MD 1 [facility], [facility] 2 [place] [phone] 02/14/2025 6:45 EDT Treatment [facility] [place] [address] [place], [place] [id number] Carlota Jin MD 1 [facility], [address] [phone] 02/16/2025 6:45 EDT Treatment [facility] [place] [address] [place], [place] [id number] Carlota Jin MD 1 [facility], [address] [phone] 02/19/2025 6:45 EDT Treatment [facility] [place] [address] [place], [place] [id number] Carlota Jin MD [address] [place] [phone] 02/21/2025 6:45 EDT Treatment [facility] [place] [address] [place], [place] [id number] Carlota Jin MD [address] [place] [address], [address] [phone] documented as of this encounter Visit Diagnoses Not on filedocumented in this encounter Care Teams Chiropractic Neurologist Relationship Specialty Start Date End Date Adeola iVllegas APRN Mohit [address]ERSON [facility] 1 [place] [address] PCP - General 10/12/16 07/06/23 documented as of this encounter
--- OUTSIDE RECORDS SUMMARY | 2024-12-05 12:25 | XMS_ITS | Encounter Summary ---
Author Organization [facility] Address [address] [place] [address] Care Team Providers Care Food Sampler Name Role Phone Adeola Villegas MONA Primary Care Provider [phone] Encounter Details Date Type Department Care Team (Latest Contact Info) Description 04/09/2023 7:15 EDT Treatment [facility] [address] [place] [address] Carlota Jin MD 1 [facility], Level [address] [place] [address] ESRD (end stage renal disease) ([facility]) (Primary Dx); Anemia of chronic renal failure, unspecified CKD stage; Hypoalbuminemia; Secondary hyperparathyroidism ([facility]) Social [...] - Temperature - - Respiratory Rate 17 04/09/2023 1121 EDT Oxygen Saturation - - Inhaled Oxygen Concentration - - Weight 89.9 kg (198 lb 3.1 oz) 04/09/2023 0706 E DT Height - - Body Mass Index 28.85 01/25/2023 0751 EDT documented in this encounter Miscellaneous Notes * Flowsheet Note - Melissa Crespo RN - 04/09/2023 1428 EDT 04/09/23 1121 Post-Hemodialysis Assessment Total Blood Processed (L) 89.11 Liters On Line Clearance: spKt/V 1.51 spKt/V Dialyzer Clearance Lightly streaked Treatment UFR (ml:kg:hr) 6.83 ml:kg:hr Critline refill Not done Fluid Removed (L) 2.4 L Post-Dialysis Scale Weight 88.5 kg (195 lb 1.7 oz) Wheelchair Weight 0 kg (0 lb) Prosthesis Weight 1 kg (2 lb 3.3 oz) Post-Treatment Weight (kg) 87.5 Treatment Weight Change (kg) 2.4 kg Day Target Weight (kg) 88 Post Sitting/Lying BP 171/77 Post Sitting/Lying pulse 65 Post Standing BP 117/73 Post Standing Pulse 69 Temp 36.7 ??C (98.1 ??F) Temp src Temporal Resp 17 Post access assessment Bruit present: Yes Thrill Present AVF/AFG Hemostasis achieved Yes Note Patient held needle sites for 10mins Orientation Alert and Oriented x3 Yes Cooperative Yes Disoriented No Discharge Ambulation Methods Ambulatory without assistance Wrap up items Patient Response to Treatment Tolerated tx. Removed 2400 UF goal. Stable upon DC from unit. Comments No issues during tx, No concerns voiced post tx. documented in this encounter Plan of Treatment Upcoming Encounters Date Type Department Care Team (Late st Contact Info) Description 12/06/2024 6:45 EST Treatment [facility] [address] [place] [id number] Carl[facility] MD [facility] [address] [place] [address] 12/08/2024 6:45 EST Treatment [facility] [address] [id number] Carlota Jin MD 1 [facility], [facility] 2 [place] [phone] 12/11/2024 6:45 EST Treatment [facility] [place] [address] [place], [place] [id number] Carlota Jin MD 1 [facility], [facility] 2 [place] [phone] 12/13/2024 6:45 EST Treatment [facility] [place] [address] [place], [place] [phone] Carlota Jin MD 1 [facility], [facility] 2 [place] [phone] 12/15/2024 6:45 EST Treatment [facility] [place] [address] [place], [place] [id number] Carlota Jin MD 1 [facility], [facility] 2 [place] [phone] 12/18/2024 6:45 EST Treatment [facility] [address] [place], [place] [id number] Carlota Jin MD 1 [facility], [facility] 2 [place] [phone] 12/20/2024 6:45 EST Treatment [facility] [place] [address] [place], [place] [id number] Carlota Jin MD 1 [facility], [facility] 2 [place] [phone] 12/22/2024 6:45 EST Treatment [facility] [place] [address] [place], [place] [id number] Carlota Jin MD 1 [facility], [facility] 2 [place] [phone] 12/25/2024 6:45 EST Treatment [facility] [place] [address] [place], [place] [id number] Carlota Jin MD 1 [facility], [facility] 2 [place] [phone] 12/27/2024 6:45 EST Treatment [facility] [place] [address] [place], [place] [id number] Carlota Jin MD 1 [facility], [facility] 2 [place] [phone] 12/29/2024 6:45 EST Treatment [facility] [place] [address] [place], [place] [phone] Carlota Jin MD 1 [facility], [facility] 2 [place] [phone] 01/01/2025 6:45 EDT Treatment [facility] [place] [address] [place], [place] [id number] Carlota Jin MD 1 [facility], [facility] 2 [place] [phone] 01/03/2025 6:45 EDT Treatment [facility] [place] [address] [place] [address] Carlota Jin MD 1 [facility], [facility] 2 [place] [phone] 01/05/2025 6:45 EDT Treatment [facility] [place] [address] [place], [place] [id number] Carlota Jin MD 1 [facility], [facility] 2 [place] [phone] 01/08/2025 6:45 EDT Treatment [facility] [place] [address] [place] [address] Carlota Jin MD 1 [facility], [address] [phone] 01/10/2025 6:45 EDT Treatment [facility] [place] [address] [place], [place] [id number] Carlota Jin MD 1 [facility], [address] [phone] 01/12/2025 6:45 EDT Treatment [facility] [place] [address] [place] [address] Carlota Jin MD 1 [facility], [facility] 2 [place] [phone] 01/15/2025 6:45 EDT Treatment [facility] [place] [address] [place], [place] [id number] Carlota Jin MD 1 [facility], [facility] 2 [place] [phone] 01/17/2025 6:45 EDT Treatment [facility] [place] [address] [place], [place] [address] Carlota Jin MD 1 [facility], [facility] 2 [place] [phone] 01/19/2025 6:45 EDT Treatment [facility] [place] [address] [place], [place] [id number] Carlota Jin MD [address] [place] [address], [facility] 2 [place] [phone] 01/22/2025 6:45 EDT Treatment [facility] [place] [address] [place], [place] [address] Carlota Jin MD 1 [facility], [facility] 2 [place] [phone] 01/24/2025 6:45 EDT Treatment [facility] [place] [address] [place], [place] [address] Carlota Jin MD [address] [place] [address], [facility] 2 [place] [phone] 01/26/2025 6:45 EDT Treatment [facility] [place] [address] [place], [place] [id number] Carlota Jin MD [address] [place] [address], [facility] 2 [place] [phone] 01/29/2025 6:45 EDT Treatment [facility] [place] [address] [place], [place] [address] Carlota Jni MD 1 [facility], [address] [phone] 01/31/2025 6:45 EDT Treatment [facility] [place] [address] [place] [address] Carlota Jin MD 1 [facility], [address] [phone] 02/02/2025 6:45 EDT Treatment [facility] [place] [address] [place], [place] [id number] Carlota Jin MD 1 [facility], [address] [phone] 02/05/2025 6:45 EDT Treatment [facility] [place] [address] [place], [place] [id number] Carlota Jin MD 1 [facility], [address] [phone] 02/07/2025 6:45 EDT Treatment [facility] [place] [address] [place], [place] [id number] Carlota Jin MD [address] [phone] 02/09/2025 6:45 EDT Treatment [facility] [place] [address] [place], [place] [id number] Carlota Jin MD 1 [facility], [facility] 2 [place] [phone] 02/12/2025 6:45 EDT Treatment [facility] [place] [address] [place], [place] [id number] Carlota Jin MD 1 [facility], [facility] 2 [place] [phone] 02/14/2025 6:45 EDT Treatment [facility] [place] [address] [place], [place] [id number] Carlota Jin MD 1 [facility], [address] [phone] 02/16/2025 6:45 EDT Treatment [facility] [place] [address] [place], [place] [id number] Carlota Jin MD [address] [phone] 02/19/2025 6:45 EDT Treatment [facility] [place] [address] [place], [place] [id number] Carlota Jin MD 1 [facility], [address] [phone] 02/21/2025 6:45 EDT Treatment [facility] [place] [address] [place], [place] [id number] Carlota Jin MD 1 [facility], [facility] 2 [place] [phone] documented as of this encounter Procedures Procedure Name Priority Date/Time Associated Diagnosis Comments HEMODIALYSIS Routine 04/09/2023 7:04 EDT ESRD (end stage renal disease) ([facility]) documented in this encounter Visit Diagnoses Diagnosis ESRD (end stage renal disease) ([facility])- Primary End stage renal disease Anemia of chronic renal failure, unspecified CKD stage Hypoalbuminemia Other disorders of plasma protein metabolism Secondary hyperparathyroidism ([facility]) Secondary hyperparathyroidism (of renal origin) documented in this encounter Administered Medications Inactive Administered Medications - up to 3 most recent administrations Medication Order MAR Action Action Date Dose Rate Site acetaminophen (TYLENOL) tablet 650 mg 650 mg, oral, EVERY 4 HOURS PRN, Starting on Wed04/09/23 at 0704, Until Wed04/09/23 at 1630, Pain, Routine, DialysisIndications:ESRD (end stage renal disease) ([facility]) Given 04/09/2023 7:10 EDT 650 mg calcium carbonate (TUMS) tablet 500 mg (200 mg elemental calcium) 2 Tablet 2 Tablet, oral, ONCE IN DIALYSIS, 1 dose, On Wed04/09/23 at 0730, Routine, DialysisIndications:ESRD (end stage renal disease) ([facility]),Secondary hyperparathyroidism ([facility]) Given 04/09/2023 7:51 EDT 2 Tablets epoetin ken (EPOGEN) 20,000 unit/2 mL injection 500 Units 500 Units, intravenous, ONCE IN DIALYSIS, 1 dose, On Wed04/09/23 at 0730, Routine, DialysisIndications:ESRD (end stage renal disease) ([facility]),Anemia of chronic renal failure, unspecified CKD stage Given 04/09/2023 7:50 EDT 500 Units heparin injection 9,000 Units 9,000 Units, intravenous, ONCE IN DIALYSIS, 1 dose, On Wed04/09/23 at 0730, Routine, Dialysis, Now x1 bolus 4500 units to be given at the beginning of dialysis 1500 units/hour to be given over the course of dialysis (9000 units total). Stop 1 hour prior to end of treatment. To be administered per Policy [id number].Indications:ESRD (end stage renal disease) ([facility]) Given 04/09/2023 7:20 EDT 9,000 Units LiquaCel liquid protein liquid 30 mL 30 mL, oral, ONCE IN DIALYSIS, 1 dose, On Wed04/09/23 at 0730, RoutineIndications:Hypoalbuminemi a,ESRD (end stage renal disease) ([facility]) Given 04/09/2023 7:50 EDT 30 mL documented in this encounter Orders Dialysis Count Last Ordered Date First Orde red Date HEMODIALYSIS 1 04/09/2023 documented in this encounter Care Teams Food Sampler Relationship Specialty Start Date End Date Adeola Villegas APRN Mohit [address] [place] [address] PCP - General 10/12/16 07/06/23 documented as of this encounter
--- OUTSIDE RECORDS SUMMARY | 2024-12-05 12:25 | XMS_ITS | Encounter Summary ---
Author Organization [facility] Address [address] [place] [address] Care Team Providers Care Qa Tester Name Role Phone Adeola Villegas MONA Primary Care Provider [phone] Encounter Details Date Type Department Care Team (Late st Contact Info) Description 03/19/2023 Documentation Visit [place] [address] [place], [place] [address] Yoanna Degroot, RN Social History Tobacco Use [...] as of this encounter Progress Notes * Yoanna Degroot, VIDYA - 03/19/2023 1037 EDT 03/19/23 10:49 [facility] MEDICATION RECONCILIATION Medication review of home medications (prescriptions, ypec-hpe-ygnmrqa, herbals, vitamin/mineral/dietary (nutritional) supplements, medical marijuana, and recreational) was completed through: Patient brought in home medications for review. Current Medications Current Outpatient Medications Medication ??? [...] No current facility-administered medications for this visit. Yoanna Degroot RN documented in this encounter Plan of Treatment Upcoming Encounters Date Type Department Care Team (Late st Contact Info) Description 12/06/2024 6:45 EST Treatment [place] [address] [place], [place] [id number] Carlota Jin MD [address] [place] [address], [facility] [address] [place] [address] 12/08/2024 6:45 EST Treatment [place] [address] [place] [id number] Carlota Jin MD [address] [place] [address], [facility] [address] [place] [address] 12/11/2024 6:45 EST Treatment [place] [address] [place] [id number] Carlota Jin MD [facility] Level [address] [place] [phone] 12/13/2024 6:45 EST Treatment [facility] - [place] [address] [place], [place] [address] Carlota Jin MD [facility], [facility] [address] [place] [phone] 12/15/2024 6:45 EST Treatment [facility] - [place] [address] [place], [place] [id number] Carlota Jin MD 1 [facility], [facility] [address] [place] [phone] 12/18/2024 6:45 EST Treatment [facility] - [place] [address] [place] [address] Carlota Jin MD 1 [facility], [facility] [address] [place] [phone] 12/20/2024 6:45 EST Treatment [facility] [address] [place] [address] Carlota Jin MD [facility], [facility] [address] [place] [phone] 12/22/2024 6:45 EST Treatment [facility] [place] [address] [place], [place] [id number] Carlota Jin MD 1 [facility], [facility] [address] [place] [phone] 12/25/2024 6:45 EST Treatment [facility] - [place] [address] [place], [place] [id number] Carlota Jin MD 1 [facility], [facility] [address] [place] [phone] 12/27/2024 6:45 EST Treatment [facility] - [place] [address] [place], [place] [phone] Carlota Jin MD 1 [facility], [facility] [address] [place] [phone] 12/29/2024 6:45 EST Treatment [facility] - [place] [address] [place], [place] [id number] Carlota Jin MD 1 [facility], [facility] [address] [place] [phone] 01/01/2025 6:45 EDT Treatment [facility] - [place] [address] [place], [place] [id number] Carlota Jin MD 1 [facility], [facility] [address] [place] [phone] 01/03/2025 6:45 EDT Treatment [facility] - [place] [address] [place], [place] [id number] Carlota Jin MD 1 [facility], [facility] [address] [place] [phone] 01/05/2025 6:45 EDT Treatment [facility] - [place] [address] [place], [place] [id number] Carlota Jin MD [facility], [facility] 2 [place] [phone] 01/08/2025 6:45 EDT Treatment [facility] - [place] [address] [place], [place] [id number] Carlota Jin MD [facility], [facility] 2 [place] [phone] 01/10/2025 6:45 EDT Treatment [facility] - [place] [address] [place], [place] [id number] Carlota Jin MD 1 [facility], [facility] 2 [place] [phone] 01/12/2025 6:45 EDT Treatment [facility] - [place] [address] [place] [address] Carlota Jin MD 1 [facility], [facility] [address] [place] [phone] 01/15/2025 6:45 EDT Treatment [facility] - [place] [address] [place] [address] Carlota Jin MD 1 [facility], [facility] 2 [place] [phone] 01/17/2025 6:45 EDT Treatment [facility] - [place] [address] [place], [place] [id number] Carlota Jin MD 1 [facility], [facility] 2 [place] [phone] 01/19/2025 6:45 EDT Treatment [facility] - [place] [address] [place], [place] [phone] Carlota Jin MD 1 [facility], [facility] [address] [place] [phone] 01/22/2025 6:45 EDT Treatment [facility] - [place] [address] [place], [place] [phone] Carlota Jin MD 1 [facility], [facility] 2 [place] [phone] 01/24/2025 6:45 EDT Treatment [facility]ys[facility] - [place] [address] [place], [place] [phone] Carlota Jin MD 1 [facility], [facility] [address] [place] [phone] 01/26/2025 6:45 EDT Treatment [facility] - [place] [address] [place], [place] [id number] Carlota Jin MD 1 [facility], [facility] [address] [place] [phone] 01/29/2025 6:45 EDT Treatment [facility] - [place] [address] [place], [place] [id number] Carlota Jin MD 1 [facility], [facility] 2 [place] [phone] 01/31/2025 6:45 EDT Treatment [facility] - [place] [address] [place], [place] [address] Carlota Jin MD 1 [facility], [facility] 2 [place] [phone] 02/02/2025 6:45 EDT Treatment [facility] - [place] [address] [place] [address] Carlota Jin MD 1 [facility], [facility] 2 [place] [phone] 02/05/2025 6:45 EDT Treatment [facility] - [place] [address] [place], [place] [phone] Carlota Jin MD 1 [facility], [address] [phone] 02/07/2025 6:45 EDT Treatment [facility]ys[facility] - [place] [address] [place], [place] [phone] Carlota Jin MD 1 [facility], [address] [phone] 02/09/2025 6:45 EDT Treatment [facility] - [place] [address] [place], [place] [phone] Carlota Jin MD 1 [facility], [facility] 2 [place] [phone] 02/12/2025 6:45 EDT Treatment [facility] - [place] [address] [place], [place] [id number] Carlota Jin MD 1 [facility], [facility] 2 [place] [phone] 02/14/2025 6:45 EDT Treatment [facility] - [place] [address] [place], [place] [phone] Carlota Jin MD [address] [place] [phone] 02/16/2025 6:45 EDT Treatment [facility] - [place] [address] [place], [place] [phone] Carlota Jin MD [address] [place] [phone] 02/19/2025 6:45 EDT Treatment [facility] - [place] [address] [place] [address] Carlota Jin MD [address] [place] [phone] 02/21/2025 6:45 EDT Treatment [facility] - [place] [address] [place], [place] [phone] Carlota Jin MD [address] [place] [phone] documented as of this encounter Visit Diagnoses Not on filedocumented in this encounter Care Teams Qa Tester Relationship Specialty Start Date End Date Adeola Villegas APRN Moh[address] [address] PCP - General 10/12/16 07/06/23 documented as of this encounter
--- OUTSIDE RECORDS SUMMARY | 2024-12-05 12:25 | XMS_ITS | Encounter Summary ---
Author Organization [facility] Address [address] [place] [address] Care Team Providers Care Electrician Apprentice Powerhouse Name Role Phone Adeola Villegas APRN Primary Care Provider [phone] Encounter Details Date Type Department Care Team (Late st Contact Info) Description 04/02/2023 Documentation Visit [facility] [address] [place], [place] [phone] Melissa Crespo, RN Social History Tobacco Use [...] EST Treatment [facility] [address] [place] [id number] Carlota Jin MD 1 [facility] Level [address] [place] [address] 12/08/2024 6:45 EST Treatment [facility] [address] [place] [address]485 Carlota Jin MD 1 [facility], [facility] 2 [place] [phone] 12/11/2024 6:45 EST Treatment [facility] - [place] [address] [place], [place] [address] Carlota Jin MD 1 [facility], [facility] 2 [place] [phone] 12/13/2024 6:45 EST Treatment [facility] D[facility]ys[facility] - [place] [address] [place], [place] [id number] Carlota Jin MD 1 [facility], [facility] 2 [place] [phone] 12/15/2024 6:45 EST Treatment [facility] - [place] [address] [place], [place] [phone] Carlota Jin MD 1 [facility], [facility] 2 [place] [phone] 12/18/2024 6:45 EST Treatment [facility] [address] [place] [address] Carlota Jin MD 1 [facility], [facility] 2 [place] [phone] 12/20/2024 6:45 EST Treatment [facility]i [place] [address] [place], [place] [id number] Carlota Jin MD 1 [facility], [facility] 2 [place] [phone] 12/22/2024 6:45 EST Treatment [facility] Dialys[facility] - [place] [address] [place], [place] [id number] Carlota Jin MD 1 [facility], [facility] 2 [place] [phone] 12/25/2024 6:45 EST Treatment [facility]ys[facility] - [place] [address] [place], [place] [id number] Carlota Jin MD 1 [facility], [facility] 2 [place] [phone] 12/27/2024 6:45 EST Treatment [facility]ys[facility] - [place] [address] [place], [place] [id number] Carlota Jin MD 1 [facility], [facility] 2 [place] [phone] 12/29/2024 6:45 EST Treatment [facility] - [place] [address] [place], [place] [id number] Carlota Jin MD 1 [facility], [facility] 2 [place] [phone] 01/01/2025 6:45 EDT Treatment [facility] - [place] [address] [place], [place] [id number] Carlota Jin MD 1 [facility], [facility] 2 [place] [phone] 01/03/2025 6:45 EDT Treatment [facility] - [place] [address] [place], [place] [id number] Carlota Jin MD 1 [facility] Level [address] [place] [phone] 01/05/2025 6:45 EDT Treatment [facility] - [place] [address] [place], [place] [address] Carlota Jin MD 1 [facility], [facility] 2 [place] [phone] 01/08/2025 6:45 EDT Treatment [facility] - [place] [address] [place], [place] [id number] Carlota Jin MD 1 [facility], [facility] 2 [place] [phone] 01/10/2025 6:45 EDT Treatment [facility] - [place] [address] [place] [address] Carlota Jin MD 1 [facility], [facility] 2 [place] [phone] 01/12/2025 6:45 EDT Treatment [facility] [address] [place] [address] Carlota Jin MD 1 [facility], [facility] 2 [place] [phone] 01/15/2025 6:45 EDT Treatment [facility] [address] [place], [place] [id number] Carlota Jin MD 1 [facility], [facility] 2 [place] [phone] 01/17/2025 6:45 EDT Treatment [facility] - [place] [address] [place], [place] [id number] Carlota Jin MD 1 [facility], [facility] 2 [place] [phone] 01/19/2025 6:45 EDT Treatment [facility] - [place] [address] [place], [place] [id number] Carlota Jin MD 1 [facility], [facility] 2 [place] [phone] 01/22/2025 6:45 EDT Treatment [facility] - [place] [address] [place], [place] [id number] Carlota Jin MD [address] [place] [address], [facility] 2 [place] [phone] 01/24/2025 6:45 EDT Treatment [facility] - [place] [address] [place], [place] [id number] Carlota Jin MD 1 [facility], [facility] 2 [place] [phone] 01/26/2025 6:45 EDT Treatment [facility] - [place] [address] [place], [place] [id number] Carlota Jin MD 1 [facility], [facility] 2 [place] [phone] 01/29/2025 6:45 EDT Treatment [facility] - [place] [address] [place], [place] [id number] Carlota Jin MD 1 [facility], [facility] 2 [place] [phone] 01/31/2025 6:45 EDT Treatment [facility] - [place] [address] [place], [place] [id number] Carlota Jin MD 1 [facility], [facility] 2 [place] [phone] 02/02/2025 6:45 EDT Treatment [facility] - [place] [address] [place], [place] [id number] Carlota Jin MD 1 [facility], [address] [phone] 02/05/2025 6:45 EDT Treatment [facility] - [place] [address] [place], [place] [id number] Carlota Jin MD 1 [facility], [address] [phone] 02/07/2025 6:45 EDT Treatment [facility] - [place] [address] [place], [place] [id number] Carlota Jin MD 1 [facility], [facility] 2 [place] [phone] 02/09/2025 6:45 EDT Treatment [facility] - [place] [address] [place], [place] [id number] Carlota Jin MD 1 [facility], [facility] 2 [place] [phone] 02/12/2025 6:45 EDT Treatment [facility] - [place] [address] [place], [place] [id number] Carlota Jin MD [address] [phone] 02/14/2025 6:45 EDT Treatment [facility] - [place] [address] [place], [place] [id number] Carlota Jin MD [address] [place] [phone] 02/16/2025 6:45 EDT Treatment [facility] - [place] [address] [place], [place] [id number] Carlota Jin MD [address] [place] [phone] 02/19/2025 6:45 EDT Treatment [facility] - [place] [address] [place], [place] [id number] Carlota Jin MD [address] [place] [phone] 02/21/2025 6:45 EDT Treatment [facility] - [place] [address] [place], [place] [phone] Carlota Jin MD [address] [place] [phone] documented as of this encounter Visit Diagnoses Not on filedocumented in this encounter Care Teams Electrician Apprentice Powerhouse Relationship Specialty Start Date End Date Villegas, [place], INSURANCE AGENTS SUPERVISOR [address] [place] [address] PCP - General 10/12/16 07/06/23 documented as of this encounter
--- OUTSIDE RECORDS SUMMARY | 2024-12-05 12:25 | XMS_ITS | Encounter Summary ---
Author Organization [facility] Address [address] [place] [address] Care Team Providers Care Cancer Researcher Name Role Phone Adeola Villegas APRN Primary Care Provider [phone] Encounter Details Date Type Department Care Team (Late st Contact Info) Description 04/07/2023 Orders Only [facility] [address] [place], [place] [id number] Shelley Eden, RD [address] [place] [address] Social History Tobacco Use Types Packs/Day Years [...] Center [facility] [address] [place] [id number] Carlota Jin MD 1 [facility], Level [address] [place] [phone] 12/08/2024 6:45 EST Treatment [facility] [address] [place] [id number] Carlota Jin MD 1 [facility], [facility] 2 [place] [phone] 12/11/2024 6:45 EST Treatment [facility] [place] [address] [place], [place] [id number] Carlota Jin MD 1 [facility], [facility] 2 [place] [phone] 12/13/2024 6:45 EST Treatment [facility] [place] [address] [place], [place] [id number] Carlota Jin MD 1 [facility], [facility] 2 [place] [phone] 12/15/2024 6:45 EST Treatment [facility] [place] [address] [place] [address] Carlota Jin MD 1 [facility], [facility] 2 [place] [phone] 12/18/2024 6:45 EST Treatment [facility] [place] [address] [place], [place] [id number] Carlota Jin MD 1 [facility], [facility] 2 [place] [phone] 12/20/2024 6:45 EST Treatment [facility] [place] [address] [place], [place] [id number] Carlota Jin MD 1 [facility], [facility] 2 [place] [phone] 12/22/2024 6:45 EST Treatment [facility] [place] [address] [place], [place] [id number] Carlota Jin MD 1 [facility], [facility] 2 [place] [phone] 12/25/2024 6:45 EST Treatment [facility] [place] [address] [place], [place] [phone] Carlota iJn MD 1 [facility], [facility] 2 [place] [phone] 12/27/2024 6:45 EST Treatment [facility] [address] [place], [place] [phone] Carlota Jin MD [address] [place] [address], [facility] 2 [place] [phone] 12/29/2024 6:45 EST Treatment [facility] [address] [place], [place] [phone] Carlota Jin MD 1 [facility], [facility] 2 [place] [phone] 01/01/2025 6:45 EDT Treatment [facility] [place] [address] [place], [place] [id number] Carlota Jin MD 1 [facility], [facility] 2 [place] [phone] 01/03/2025 6:45 EDT Treatment [facility] [address] [place], [place] [id number] Carlota Jin MD 1 [facility], [facility] 2 [place] [phone] 01/05/2025 6:45 EDT Treatment [facility] [place] [address] [place], [place] [id number] Carlota Jin MD 1 [facility], [facility] 2 [place] [phone] 01/08/2025 6:45 EDT Treatment [facility] [place] [address] [place], [place] [id number] Carlota Jin MD 1 [facility], [address] [phone] 01/10/2025 6:45 EDT Treatment [facility] [place] [address] [place], [place] [id number] Carlota Jin MD 1 [facility], [address] [phone] 01/12/2025 6:45 EDT Treatment [facility] [place] [address] [place], [place] [id number] Carlota Jin MD 1 [facility], [facility] 2 [place] [phone] 01/15/2025 6:45 EDT Treatment [facility] [place] [address] [place], [place] [id number] Carlota Jin MD 1 [facility], [facility] 2 [place] [phone] 01/17/2025 6:45 EDT Treatment [facility] [place] [address] [place], [place] [id number] Carlota Jin MD 1 [facility], [facility] 2 [place] [phone] 01/19/2025 6:45 EDT Treatment [facility] [place] [address] [place], [place] [id number] Carlota Jin MD 1 [facility], [facility] 2 [place] [phone] 01/22/2025 6:45 EDT Treatment [facility] [place] [address] [place], [place] [address]455 Carlota Jin MD 1 [facility], [address] [phone] 01/24/2025 6:45 EDT Treatment [facility] [place] [address] [place], [place] [id number] Carlota Jin MD 1 [facility], [facility] 2 [place] [phone] 01/26/2025 6:45 EDT Treatment [facility] [place] [address] [place], [place] [id number] Carlota Jin MD 1 [facility], [facility] 2 [place] [phone] 01/29/2025 6:45 EDT Treatment [facility] [place] [address] [place], [place] [address] Carlota Jin MD 1 [facility], [facility] 2 [place] [phone] 01/31/2025 6:45 EDT Treatment [facility] [place] [address] [place] [address] [address] MD [address] [facility], [address] [phone] 02/02/2025 6:45 EDT Treatment [facility] [place] [address] [place], [place] [address] Carlota Jin MD 1 [facility], [address] [phone] 02/05/2025 6:45 EDT Treatment [facility] [place] [address] [place] [address] Carlota Jin MD 1 [facility], [address] [phone] 02/07/2025 6:45 EDT Treatment [facility] [place] [address] [place], [place] [id number] Carlota Jin MD [address] [phone] 02/09/2025 6:45 EDT Treatment [facility] [place] [address] [place], [place] [id number] Cralota Jin MD 1 [facility], [facility] 2 [place] [phone] 02/12/2025 6:45 EDT Treatment [facility] [place] [address] [place], [place] [id number] Carlota Jin MD 1 [facility], [facility] 2 [place] [phone] 02/14/2025 6:45 EDT Treatment [facility] [place] [address] [place], [place] [id number] Carlota Jin MD 1 [facility], [address] [phone] 02/16/2025 6:45 EDT Treatment [facility] [place] [address] [place], [place] [id number] Carlota Jin MD 1 [facility], [address] [phone] 02/19/2025 6:45 EDT Treatment [facility] [place] [address] [place], [place] [id number] Carlota Jin MD 1 [facility], [address] [phone] 02/21/2025 6:45 EDT Treatment [facility] [place] [address] [place], [place] [id number] Carlota Jin MD 1 [facility], [facility] 2 [place] [phone] documented as of this encounter Visit Diagnoses Not on filedocumented in this encounter Care Teams Cancer Researcher Relationship Specialty Start Date End Date Adeola Villegas APRN [address] [place] [address] PCP - General 10/12/16 07/06/23 documented as of this encounter
--- OUTSIDE RECORDS SUMMARY | 2024-12-05 12:25 | XMS_ITS | Encounter Summary ---
Author Organization [facility] Address [address] [place] [address] Care Team Providers Care Solutions Operator Name Role Phone Adeola Villegas MONA Primary Care Provider [phone] Encounter Details Date Type Department Care Team (Late st Contact Info) Description 04/05/2023 7:15 EDT Treatment [facility] [address] [place] [phone] Carlota Jin MD 1 [facility], Level [address] [place] [phone] ESRD (end stage renal disease) ([facility]) (Primary Dx); Anemia of chronic [...] - Temperature - - Respiratory Rate 17 04/05/2023 1120 EDT Oxygen Saturation - - Inhaled Oxygen Concentration - - Weight 91.1 kg (200 lb 13.4 oz) 04/05/2023 0703 EDT Height - - Body Mass Index 29.23 01/25/2023 0751 EDT documented in this encounter Miscellaneous Notes * Flowsheet Note - Melissa Crespo RN - 04/05/2023 1423 EDT 04/05/23 1120 Post-Hemodialysis Assessment Total Blood Processed (L) 89.68 Liters On Line Clearance: spKt/V 1.52 spKt/V Dialyzer Clearance Lightly streaked Treatment UFR (ml:kg:hr) 7.8 ml:kg:hr Critline refill Not done Fluid Removed (L) 3 L Post-Dialysis Scale Weight 88.3 kg (194 lb 10.7 oz) Wheelchair Weight 0 kg (0 lb) Prosthesis Weight 0 kg (0 lb) Post-Treatment Weight (kg) 88.3 Treatment Weight Change (kg) 2.8 kg Day Target Weight (kg) 88.1 Post Sitting/Lying BP 152/81 Post Sitting/Lying pulse 64 Post Standing BP 139/73 Post Standing Pulse 68 Temp 36.8 ??C (98.2 ??F) Temp src Temporal Resp 17 Post access assessment Bruit present: Yes Thrill Present AVF/AFG Hemostasis achieved Yes Note Patient held with blue clamps for 10mins Orientation Alert and Oriented x3 Yes Cooperative Yes Disoriented No Discharge Ambulation Methods Ambulatory without assistance Wrap up items Patient Response to Treatment Cramping in L rib area toward end of tx and restless. UF goal decreased from 3500 to 3000 and symptoms resolved. Comments Stable upon DC from unit. No concerns voiced post tx. documented in this encounter Plan of Treatment Upcoming Encounters Date Type Department Care Team (Late st Contact Info) Description 12/06/2024 6:45 EST Treatment [facility] [place] [address] [place] [phone] Carlota Jin MD 1 [facility], Level [address] [place] [phone] 12/08/2024 6:45 EST Treatment [facility] [address] [place] [id number] Carlota Jin MD 1 [facility], [facility] 2 [place] [phone] 12/11/2024 6:45 EST Treatment [facility] [place] [address] [place], [place] [id number] Carlota Jin MD 1 [facility], [facility] 2 [place] [phone] 12/13/2024 6:45 EST Treatment [facility] [place] [address] [place], [place] [id number] Carlota Jin MD 1 [facility], [facility] 2 [place] [phone] 12/15/2024 6:45 EST Treatment [facility] [place] [address] [place], [place] [id number] Carlota Jin MD 1 [facility], [facility] 2 [place] [phone] 12/18/2024 6:45 EST Treatment [facility] [address] [place], [place] [id number] Carlota Jin MD 1 [facility], [facility] 2 [place] [phone] 12/20/2024 6:45 EST Treatment [facility] [place] [address] [place], [place] [id number] Carlota Jin MD 1 [facility], [facility] 2 [place] [phone] 12/22/2024 6:45 EST Treatment [facility] [place] [address] [place], [place] [id number] Carlota Jin MD 1 [facility], [facility] 2 [place] [phone] 12/25/2024 6:45 EST Treatment [facility] [place] [address] [place], [place] [id number] Carlota Jin MD 1 [facility], [facility] 2 [place] [phone] 12/27/2024 6:45 EST Treatment [facility] [place] [address] [place], [place] [id number] Carlota Jin MD 1 [facility], [facility] 2 [place] [phone] 12/29/2024 6:45 EST Treatment [facility] [place] [address] [place], [place] [id number] Carlota Jin MD 1 [facility], [facility] 2 [place] [phone] 01/01/2025 6:45 EDT Treatment [facility] [place] [address] [place], [place] [id number] Carlota Jin MD 1 [facility], [facility] 2 [place] [phone] 01/03/2025 6:45 EDT Treatment [facility] [address] [place], [place] [id number] Carlota Jin MD 1 [facility], [facility] 2 [place] [phone] 01/05/2025 6:45 EDT Treatment [facility] [place] [address] [place] [address] Carlota Jin MD 1 [facility], [facility] 2 [place] [phone] 01/08/2025 6:45 EDT Treatment [facility] [place] [address] [place] [address] [address] MD 1 [facility], [facility] 2 [place] [phone] 01/10/2025 6:45 EDT Treatment [facility] [place] [address] [place], [place] [id number] Carlota Jin MD 1 [facility], [facility] 2 [place] [phone] 01/12/2025 6:45 EDT Treatment [facility] [place] [address] [place] [address] Carl[address] MD 1 [facility], [facility] 2 [place] [phone] 01/15/2025 6:45 EDT Treatment [facility] [place] [address] [place], [place] [id number] Carlota Jin MD 1 [facility], [facility] 2 [place] [phone] 01/17/2025 6:45 EDT Treatment [facility] [place] [address] [place], [place] [id number] Carlota Jin MD 1 [facility], [facility] 2 [place] [phone] 01/19/2025 6:45 EDT Treatment [facility] [place] [address] [place], [place] [id number] Carlota Jin MD 1 [facility], [facility] 2 [place] [phone] 01/22/2025 6:45 EDT Treatment [facility] [address] [place], [place] [id number] Carlota Jin MD 1 [facility], [facility] 2 [place] [phone] 01/24/2025 6:45 EDT Treatment [facility] [address] [place], [place] [address] Carlota Jin MD 1 [facility], [facility] 2 [place] [phone] 01/26/2025 6:45 EDT Treatment [facility] [address] [place], [place] [id number] Carlota Jin MD 1 [facility], [facility] 2 [place] [phone] 01/29/2025 6:45 EDT Treatment [facility] [place] [address] [place], [place] [address] Carlota Jin MD 1 [facility], [facility] 2 [place] [phone] 01/31/2025 6:45 EDT Treatment [facility] [place] [address] [place], [place] [id number] Carlota Jin MD 1 [facility], [address] [phone] 02/02/2025 6:45 EDT Treatment [facility] [place] [address] [place], [place] [id number] Carlota Jin MD 1 [facility], [address] [phone] 02/05/2025 6:45 EDT Treatment [facility] [place] [address] [place], [place] [id number] Carlota Jin MD [address] [phone] 02/07/2025 6:45 EDT Treatment [facility] [place] [address] [place], [place] [id number] Carlota Jin MD [address] [phone] 02/09/2025 6:45 EDT Treatment [facility] [place] [address] [place], [place] [id number] Carlota Jin MD 1 [facility], [facility] 2 [place] [phone] 02/12/2025 6:45 EDT Treatment [facility] [place] [address] [place], [place] [id number] Carlota Jin MD 1 [facility], [facility] 2 [place] [phone] 02/14/2025 6:45 EDT Treatment [facility] [place] [address] [place], [place] [id number] Carlota Jin MD 1 [facility], [address] [phone] 02/16/2025 6:45 EDT Treatment [facility] [place] [address] [place], [place] [id number] Carlota Jin MD [address] [phone] 02/19/2025 6:45 EDT Treatment [facility] [place] [address] [place] [address] Carlota Jin MD 1 [facility], [address] [phone] 02/21/2025 6:45 EDT Treatment [facility] [place] [address] [place], [place] [id number] Carlota Jin MD 1 [facility], [address] [phone] documented as of this encounter Procedures Procedure Name Priority Date/Time Associated Diagnosis Comments HEMODIALYSIS Routine 04/05/2023 6:57 EDT ESRD (end stage renal disease) ([facility]) documented in this encounter Visit Diagnoses Diagnosis ESRD (end stage renal disease) ([facility])- Primary End stage renal disease Anemia of chronic renal failure, unspecified CKD stage Abnormal albumin Other nonspecific findings on examination of blood documented in this encounter Administered Medications Inactive Administered Medications - up to 3 most recent administrations Medication Order MAR Action Action Date Dose Rate Site acetaminophen (TYLENOL) tablet 650 mg 650 mg, oral, EVERY 4 HOURS PRN, Starting on Wed04/05/23 at 1004, Until Wed04/05/23 at 1623, Pain, Routine, DialysisIndications:ESRD (end stage renal disease) ([facility]) Given 04/05/2023 10:04 EDT 650 mg epoetin ken (EPOGEN) 20,000 unit/2 mL injection 500 Units 500 Units, intravenous, ONCE IN DIALYSIS, 1 dose, On Wed04/05/23 at 0715, Routine, DialysisIndications:ESRD (end stage renal disease) ([facility]),Anemia of chronic renal failure, unspecified CKD stage Given 04/05/2023 8:29 EDT 500 Units heparin injection 9,000 Units 9,000 Units, intravenous, ONCE IN DIALYSIS, 1 dose, On Wed04/05/23 at 0715, Routine, Dialysis, Now x1 bolus 4500 units to be given at the beginning of dialysis 1500 units/hour to be given over the course of dialysis (9000 units total). Stop 1 hour prior to end of treatment. To be administered per Policy [id number].Indications:ESRD (end stage renal disease) ([facility]) Given 04/05/2023 7:16 EDT 9,000 Units nepro w/ carb steady bolus 237 mL 237 mL (1 Package), oral, ONCE IN DIALYSIS, 1 dose, On Wed04/05/23 at 0715, RoutineIndications:ESRD (end stage renal disease) ([facility]),Abnormal albumin Given 04/05/2023 8:29 EDT 237 mL documented in this encounter Orders Dialysis Count Last Ordered Date First Orde red Date HEMODIALYSIS 1 04/05/2023 documented in this encounter Care Teams Solutions Operator Relationship Specialty Start Date End Date Adeola Villegas APRN [facility] [address] [place] [address] PCP - General 10/12/16 07/06/23 documented as of this encounter
--- OUTSIDE RECORDS SUMMARY | 2024-12-05 12:25 | XMS_ITS | Encounter Summary ---
Author Organization [facility] Address [address] [place] [address] Care Team Providers Care Apprentice Instrument Technician Name Role Phone Adeola Villegas MONA Primary Care Provider [phone] Encounter Details Date Type Department Care Team (Late st Contact Info) Description 03/24/2023 7:15 EDT Treatment [facility] [address] [place] [phone] Carlota Jin MD 1 [facility], Level [address] [place] [address] ESRD (end stage renal disease) ([facility]) (Primary Dx); Abnormal albumin Social History Tobacco Use Types [...] - Temperature - - Respiratory Rate 17 03/24/2023 1122 EDT Oxygen Saturation - - Inhaled Oxygen Concentration - - Weight 87.9 kg (193 lb 12.6 oz) 03/24/2023 0706 EDT Height - - Body Mass Index 28.21 01/25/2023 0751 EDT documented in this encounter Miscellaneous Notes * Flowsheet Note - Melissa Crespo RN - 03/24/2023 9361 EDT 03/24/23 1122 Post-Hemodialysis Assessment Total Blood Processed (L) 88.87 Liters On Line Clearance: spKt/V 1.48 spKt/V Dialyzer Clearance Lightly streaked Treatment UFR (ml:kg:hr) 3.46 ml:kg:hr Final Critline Profile (%/hr) -2.15 Final Profile Profile A Critline refill Negative (H1: 34.6 H2: 34.4) Fluid Removed (L) 1.5 L Post-Dialysis Scale Weight 86.7 kg (191 lb 2.2 oz) Wheelchair Weight 0 kg (0 lb) Prosthesis Weight 0 kg (0 lb) Post-Treatment Weight (kg) 86.7 Treatment Weight Change (kg) 1.2 kg Day Target Weight (kg) 86.9 Post Sitting/Lying BP 136/82 Post Sitting/Lying pulse 66 Post Standing BP 122/73 Post Standing Pulse 69 Temp 36.4 ??C (97.5 ??F) Temp src Temporal Resp 17 Post access assessment Bruit present: Yes Thrill Present AVF/AFG Hemostasis achieved Yes Note Patient held for 10minutes with blue clamps Orientation Alert and Oriented x3 Yes Cooperative Yes Disoriented No Discharge Ambulation Methods Ambulatory without assistance Wrap up items Patient Response to Treatment Tolerated tx. Removed 1500 UF goal. Stable upon DC from unit. Comments No issues during tx, No concerns voiced post tx. documented in this encounter Plan of Treatment Upcoming Encounters Date Type Department Care Team (Late st Contact Info) Description 12/06/2024 6:45 EST Treatment [facility] - [place] [address] [place] [phone] Carlota Jin MD 1 [facility], [address] [place] [address] 12/08/2024 6:45 EST Treatment [facility] - [place] [address] [place] [phone] Carlota Jin MD 1 [facility], [facility] 2 [place] [phone] 12/11/2024 6:45 EST Treatment [facility] [place] [address] [place] [address] Carlota Jin MD 1 [facility], [facility] 2 [place] [phone] 12/13/2024 6:45 EST Treatment [facility] - [place] [address] [place] [address] Carlota Jin MD 1 [facility], [facility] [address] [place] [phone] 12/15/2024 6:45 EST Treatment [facility] [place] [address] [place] [address] Carlota Jin MD 1 [facility], [facility] 2 [place] [phone] 12/18/2024 6:45 EST Treatment [facility] [place] [address] [place] [address] Carlota Jin MD 1 [facility], [facility] 2 [place] [phone] 12/20/2024 6:45 EST Treatment [facility] - [place] [address] [place], [place] [phone] Carlota Jin MD 1 [facility], [facility] 2 [place] [phone] 12/22/2024 6:45 EST Treatment [facility] - [place] [address] [place], [place] [phone] Carlota Jin MD 1 [facility], [facility] [address] [place] [phone] 12/25/2024 6:45 EST Treatment [facility] - [place] [address] [place], [place] [phone] Carlota Jin MD 1 [facility], [facility] 2 [place] [phone] 12/27/2024 6:45 EST Treatment [facility] [place] [address] [place] [address] Carlota Jin MD 1 [facility], [facility] 2 [place] [phone] 12/29/2024 6:45 EST Treatment [facility] - [place] [address] [place], [place] [phone] Carlota Jin MD 1 [facility], [facility] 2 [place] [phone] 01/01/2025 6:45 EDT Treatment [facility] - [place] [address] [place], [place] [phone] Carlota Jin MD 1 [facility], [facility] 2 [place] [phone] 01/03/2025 6:45 EDT Treatment [facility] - [place] [address] [place], [place] [phone] Carlota Jin MD 1 [facility], [facility] 2 [place] [phone] 01/05/2025 6:45 EDT Treatment [facility] - [place] [address] [place] [address] Carlota Jin MD 1 [facility], [address] [phone] 01/08/2025 6:45 EDT Treatment [facility] - [place] [address] [place], [place] [phone] Carlota Jin MD 1 [facility], [address] [phone] 01/10/2025 6:45 EDT Treatment [facility] - [place] [address] [place] [address] Carlota Jin MD 1 [facility], [address] [phone] 01/12/2025 6:45 EDT Treatment [facility] - [place] [address] [place], [place] [phone] Carlota Jin MD [address] [phone] 01/15/2025 6:45 EDT Treatment [facility] - [place] [address] [place], [place] [phone] Carlota Jin MD 1 [facility], [facility] 2 [place] [phone] 01/17/2025 6:45 EDT Treatment [facility] - [place] [address] [place], [place] [phone] Carlota Jin MD 1 [facility], [facility] 2 [place] [phone] 01/19/2025 6:45 EDT Treatment [facility] - [place] [address] [place], [place] [phone] Carlota Jin MD 1 [facility], [facility] 2 [place] [phone] 01/22/2025 6:45 EDT Treatment [facility] - [place] [address] [place], [place] [phone] Carlota Jin MD 1 [facility], [facility] 2 [place] [phone] 01/24/2025 6:45 EDT Treatment [facility] - [place] [address] [place], [place] [phone] Carlota Jin MD 1 [facility], [facility] 2 [place] [phone] 01/26/2025 6:45 EDT Treatment [facility] [address] [place], [place] [phone] Carlota Jin MD 1 [facility], [facility] 2 [place] [phone] 01/29/2025 6:45 EDT Treatment [facility] - [place] [address] [place], [place] [address] Carlota Jin MD 1 [facility], [facility] [address] [place] [phone] 01/31/2025 6:45 EDT Treatment [facility] - [place] [address] [place], [place] [phone] Carlota Jin MD 1 [facility], [facility] 2 [place] [phone] 02/02/2025 6:45 EDT Treatment [facility] - [place] [address] [place], [place] [phone] Carlota Jin MD 1 [facility], [address] [phone] 02/05/2025 6:45 EDT Treatment [facility] - [place] [address] [place], [place] [phone] Carlota Jin MD 1 [facility], [facility] 2 [place] [phone] 02/07/2025 6:45 EDT Treatment [facility] - [place] [address] [place], [place] [phone] Carlota Jin MD 1 [facility], [facility] 2 [place] [phone] 02/09/2025 6:45 EDT Treatment [facility] - [place] [address] [place], [place] [phone] Carlota Jin MD 1 [facility], [facility] 2 [place] [phone] 02/12/2025 6:45 EDT Treatment [facility] - [place] [address] [place], [place] [address] Carlota Jin MD 1 [facility], [facility] 2 [place] [phone] 02/14/2025 6:45 EDT Treatment [facility] - [place] [address] [place], [place] [phone] Carlota Jin MD 1 [facility], [facility] [address] [place] [phone] 02/16/2025 6:45 EDT Treatment [facility] - [place] [address] [place], [place] [phone] Carlota Jin MD 1 [facility], [facility] 2 [place] [phone] 02/19/2025 6:45 EDT Treatment [facility] - [place] [address] [place], [place] [phone] Carlota Jin MD 1 [facility], [facility] 2 [place] [phone] 02/21/2025 6:45 EDT Treatment [facility] - [place] [address] [place], [place] [phone] Carlota Jin MD 1 [facility], [facility] [address] [place] [phone] documented as of this encounter Procedures Procedure Name Priority Date/Time Associated Diagnosis Comments COMPLETE BLOOD COUNT Routine 03/24/2023 7:10 EDT ESRD (end stage renal disease) ([facility]) HEMODIALYSIS Routine 03/24/2023 7:07 EDT ESRD (end stage renal disease) ([facility]) documented in this encounter Results * (ABNORMAL) COMPLETE BLOOD COUNT (03/24/2023 7:10 EDT) WBC 6.96 4.00 - 10.40 K/cmm 03/24/2023 21:37 [facility] RBC 3.30(L) 4.36 - 5.78 M/cmm 03/24/2023 21:37 [facility] Hemoglobin 10.6(L) 13.8 - 17.3 g/dL 03/24/2023 21:37 [facility] HCT 31.0(L) 39.5 - 50.2 % 03/24/2023 21:37 [facility] MCV 94 81 - 95 fL 03/24/2023 21:37 [facility] MCH 32.1 27.6 - 33.0 pg 03/24/2023 21:37 [facility] MCHC 34.2 32.8 - 36.4 g/dL 03/24/2023 21:37 [facility] RDW-CV 12.3 <14.2 % 03/24/2023 21:37 [facility] RDW-SD 42.4 <46.0 fl 03/24/2023 21:37 [facility] PLT 236 141 - 377 K/cmm 03/24/2023 21:37 [facility] MPV 11.9 9.5 - 12.7 fL 03/24/2023 21:37 [facility] Blood VENOUS BLOOD / Unknown Venipuncture / Unknown 03/24/2023 7:10 EDT 03/24/2023 7:10 EDT us Carlota Jin MD HEMATOLOGY & PF4 ORDERABL ES Final Result [facility] [address] [place] [address] documented in this encounter Visit Diagnoses Diagnosis ESRD (end stage renal disease) ([facility])- Primary End stage renal disease Abnormal albumin Other nonspecific findings on examination of blood documented in this encounter Administered Medications Inactive Administered Medications - up to 3 most recent administrations Medication Order MAR Action Action Date Dose Rate Site heparin injection 9,000 Units 9,000 Units, intravenous, ONCE IN DIALYSIS, 1 dose, On Wed03/24/23 at 0730, Routine, Dialysis, Now x1 bolus 4500 units to be given at the beginning of dialysis 1500 units/hour to be given over the course of dialysis (9000 units total). Stop 1 hour prior to end of treatment. To be administered per Policy [id number].Indications:ESRD (end stage renal disease) ([facility]) Given 03/24/2023 7:18 EDT 9,000 Units nepro w/ carb steady bolus 237 mL 237 mL (1 Package), oral, ONCE IN DIALYSIS, 1 dose, On Wed03/24/23 at 0730, RoutineIndications:ESRD (end stage renal disease) ([facility]),Abnormal albumin Given 03/24/2023 7:46 EDT 237 mL documented in this encounter Orders Dialysis Count Last Ordered Date First Orde red Date HEMODIALYSIS 1 03/24/2023 documented in this encounter Care Teams Apprentice Instrument Technician Relationship Specialty Start Date End Date Adeola Villegas APRN [address] [place] [address] PCP - General 10/12/16 07/06/23 documented as of this encounter
--- OUTSIDE RECORDS SUMMARY | 2024-12-05 12:25 | XMS_ITS | Encounter Summary ---
Author Organization [facility] Address [address] [place] [address] Care Team Providers Care Manager Chemistry Name Role Phone Adeola Villegas MONA Primary Care Provider [phone] Encounter Details Date Type Department Care Team (Late st Contact Info) Description 04/07/2023 7:15 EDT Treatment [facility] [address] [place], [place] [id number] Carlota Jin MD 1 [facility], Level [address] [place] [address] ESRD (end stage renal disease) ([facility]) (Primary Dx); Abnormal albumin Social History Tobacco [...] - Temperature - - Respiratory Rate 17 04/07/2023 1104 EDT Oxygen Saturation - - Inhaled Oxygen Concentration - - Weight 89.5 kg (197 lb 5 oz) 04/07/2023 0651 EDT Height - - Body Mass Index 28.72 01/25/2023 0751 EDT documented in this encounter Miscellaneous Notes * Flowsheet Note - Melissa Crespo RN - 04/07/2023 1534 EDT 04/07/23 1104 Post-Hemodialysis Assessment Total Blood Processed (L) 88.73 Liters On Line Clearance: spKt/V 1.48 spKt/V Dialyzer Clearance Lightly streaked Treatment UFR (ml:kg:hr) 6.01 ml:kg:hr Critline refill Not done Fluid Removed (L) 1.99 L Post-Dialysis Scale Weight 88.4 kg (194 lb 14.2 oz) Wheelchair Weight 0 kg (0 lb) Prosthesis Weight 1 kg (2 lb 3.3 oz) Post-Treatment Weight (kg) 87.4 Treatment Weight Change (kg) 2.1 kg Day Target Weight (kg) 88 Post Sitting/Lying BP 159/74 Post Sitting/Lying pulse 62 Post Standing BP 135/79 Post Standing Pulse 69 Temp 36.7 ??C (98.1 ??F) Temp src Temporal Resp 17 Post access assessment Bruit present: Yes Thrill Present AVF/AFG Hemostasis achieved Yes Note Patient held for 10 mins with blue clamps Orientation Alert and Oriented x3 Yes Cooperative Yes Disoriented No Discharge Ambulation Methods Ambulatory without assistance Wrap up items Patient Response to Treatment Tolerated tx. Removed 2000 UF goal. Stable upon DC from unit. Comments No issues during tx, No concerns voiced post tx. * Dialysis Rounding - Skye Gomez NP - 04/07/2023 0715 EDT Dialysis Provider's Routine Assessment Gerson Becky [...] [facility] [place] [address] [place] [address] Carlota Jin MD 1 [facility], [facility] [address] [place] [phone] 12/08/2024 6:45 EST Treatment [facility] [place] [address] [place], [place] [id number] Carlota Jin MD 1 [facility], [facility] [address] [place] [phone] 12/11/2024 6:45 EST Treatment [facility] [place] [address] [place], [place] [id number] Carlota Jin MD 1 [facility], [facility] [address] [place] [phone] 12/13/2024 6:45 EST Treatment [facility] [place] [address] [place], [place] [id number] Carlota Jin MD 1 [facility], [facility] [address] [place] [phone] 12/15/2024 6:45 EST Treatment [facility] [place] [address] [place], [place] [id number] Carlota Jin MD 1 [facility], [facility] [address] [place] [phone] 12/18/2024 6:45 EST Treatment [facility] [place] [address] [place], [place] [id number] Carlota Jin MD 1 [facility], [facility] [address] [place] [phone] 12/20/2024 6:45 EST Treatment [facility] [place] [address] [place], [place] [id number] Carlota Jin MD 1 [facility], [facility] [address] [place] [phone] 12/22/2024 6:45 EST Treatment [facility] [place] [address] [place], [place] [id number] Carlota Jin MD 1 [facility], [facility] [address] [place] [phone] 12/25/2024 6:45 EST Treatment [facility] [place] [address] [place], [place] [id number] Carlota Jin MD 1 [facility], [facility] [address] [place] [phone] 12/27/2024 6:45 EST Treatment [facility] [place] [address] [place], [place] [id number] Carlota Jin MD 1 [facility], [facility] [address] [place] [phone] 12/29/2024 6:45 EST Treatment [facility] [place] [address] [place], [place] [id number] Carlota Jin MD 1 [facility], [facility] [address] [place] [phone] 01/01/2025 6:45 EDT Treatment [facility] [place] [address] [place] [address] Carlota Jin MD 1 [facility], [facility] [address] [place] [phone] 01/03/2025 6:45 EDT Treatment [facility] [place] [address] [place] [address] Carlota Jin MD 1 [facility], [facility] [address] [place] [phone] 01/05/2025 6:45 EDT Treatment [facility] [place] [address] [place] [address] Carlota Jin MD 1 [facility], [address] [phone] 01/08/2025 6:45 EDT Treatment [facility] [place] [address] [place] [address] Carlota Jin MD 1 [facility], [address] [phone] 01/10/2025 6:45 EDT Treatment [facility] [place] [address] [place] [address] Carlota Jin MD 1 [facility], [facility] [address] [place] [phone] 01/12/2025 6:45 EDT Treatment [facility] [place] [address] [place], [place] [id number] Carlota Jin MD 1 [facility], [facility] [address] [place] [phone] 01/15/2025 6:45 EDT Treatment [facility] [place] [address] [place], [place] [address] Carlota Jin MD 1 [facility], [facility] [address] [place] [phone] 01/17/2025 6:45 EDT Treatment [facility] [place] [address] [place], [place] [phone] Carlota Jin MD [address] [place] [address], [facility] [address] [place] [phone] 01/19/2025 6:45 EDT Treatment [facility] [place] [address] [place], [place] [address] Carlota Jin MD 1 [facility], [facility] [address] [place] [phone] 01/22/2025 6:45 EDT Treatment [facility] [place] [address] [place], [place] [address] Carlota Jin MD [address] [place] [address], [facility] [address] [place] [phone] 01/24/2025 6:45 EDT Treatment [facility] [place] [address] [place], [place] [phone] Carlota Jin MD 1 [facility], [facility] [address] [place] [phone] 01/26/2025 6:45 EDT Treatment [facility] [place] [address] [place], [place] [address] Carlota Jin MD 1 [facility], [address] [phone] 01/29/2025 6:45 EDT Treatment [facility] [place] [address] [place], [place] [phone] Carlota Jin MD 1 [facility], [address] [phone] 01/31/2025 6:45 EDT Treatment [facility] [place] [address] [place], [place] [phone] Carlota Jin MD 1 [facility], [address] [phone] 02/02/2025 6:45 EDT Treatment [facility] [place] [address] [place], [place] [phone] Carlota Jin MD [address] [phone] 02/05/2025 6:45 EDT Treatment [facility] [place] [address] [place], [place] [phone] Carlota Jin MD [address] [phone] 02/07/2025 6:45 EDT Treatment [facility] [place] [address] [place], [place] [id number] Carlota Jin MD 1 [facility], [address] [phone] 02/09/2025 6:45 EDT Treatment [facility] [place] [address] [place], [place] [phone] Carlota Jin MD 1 [facility], [facility] [address] [place] [phone] 02/12/2025 6:45 EDT Treatment [facility] [place] [address] [place], [place] [phone] Carlota Jin MD 1 [facility], [facility] 2 [place] [phone] 02/14/2025 6:45 EDT Treatment [facility] [place] [address] [place], [place] [phone] Carlota Jin MD 1 [facility], [address] [phone] 02/16/2025 6:45 EDT Treatment [facility] [place] [address] [place] [address] Carlota Jin MD 1 [facility], [facility] [address] [place] [phone] 02/19/2025 6:45 EDT Treatment [facility] [place] [address] [place], [place] [phone] Carlota Jin MD 1 [facility], [facility] [address] [place] [phone] 02/21/2025 6:45 EDT Treatment [facility] [place] [address] [place] [address] Carlota Jin MD 1 [facility], [address] [place] [address] documented as of this encounter Procedures Procedure Name Priority Date/Time Associated Diagnosis Comments COMPLETE BLOOD COUNT Routine 04/07/2023 6:54 EDT ESRD (end stage renal disease) ([facility]) HEMODIALYSIS Routine 04/07/2023 6:52 EDT ESRD (end stage renal disease) ([facility]) documented in this encounter Results * (ABNORMAL) COMPLETE BLOOD COUNT (04/07/2023 6:54 EDT) WBC 7.63 4.00 - 10.40 K/cmm 04/07/2023 21:30 [facility] RBC 3.09(L) 4.36 - 5.78 M/cmm 04/07/2023 21:30 [facility] Hemoglobin 9.7(L) 13.8 - 17.3 g/dL 04/07/2023 21:30 [facility] HCT 29.0(L) 39.5 - 50.2 % 04/07/2023 21:30 [facility] MCV 94 81 - 95 fL 04/07/2023 21:30 [facility] MCH 31.4 27.6 - 33.0 pg 04/07/2023 21:30 [facility] MCHC 33.4 32.8 - 36.4 g/dL 04/07/2023 21:30 [facility] RDW-CV 11.9 <14.2 % 04/07/2023 21:30 [facility] RDW-SD 40.7 <46.0 fl 04/07/2023 21:30 [facility] PLT 251 141 - 377 K/cmm 04/07/2023 21:30 [facility] MPV 11.8 9.5 - 12.7 fL 04/07/2023 21:30 EDT [facility] Blood VENOUS BLOOD / Unknown Venipuncture / Unknown 04/07/2023 6:54 EDT 04/07/2023 6:54 EDT us Carlota Jin MD HEMATOLOGY & PF4 ORDERABL ES Final Result [facility] [address] [place] [address] documented in this encounter Visit Diagnoses Diagnosis ESRD (end stage renal disease) ([facility])- Primary End stage renal disease Abnormal albumin Other nonspecific findings on examination of blood documented in this encounter Administered Medications Inactive Administered Medications - up to 3 most recent administrations Medication Order MAR Action Action Date Dose Rate Site heparin injection 9,000 Units 9,000 Units, intravenous, ONCE IN DIALYSIS, 1 dose, On Wed04/07/23 at 0715, Routine, Dialysis, Now x1 bolus 4500 units to be given at the beginning of dialysis 1500 units/hour to be given over the course of dialysis (9000 units total). Stop 1 hour prior to end of treatment. To be administered per Policy [id number].Indications:ESRD (end stage renal disease) ([facility]) Given 04/07/2023 7:04 EDT 9,000 Units nepro w/ carb steady bolus 237 mL 237 mL (1 Package), oral, ONCE IN DIALYSIS, 1 dose, On Wed04/07/23 at 0715, RoutineIndications:ESRD (end stage renal disease) ([facility]),Abnormal albumin Given 04/07/2023 7:34 EDT 237 mL documented in this encounter Orders Dialysis Count Last Ordered Date First Orde red Date HEMODIALYSIS 1 04/07/2023 documented in this encounter Care Teams Manager Chemistry Relationship Specialty Start Date End Date Adeola Villegas APRN [address] [place] [address] PCP - General 10/12/16 07/06/23 documented as of this encounter
--- OUTSIDE RECORDS SUMMARY | 2024-12-05 12:25 | XMS_ITS | Encounter Summary ---
Author Organization [facility] Address [address] [place] [address] Care Team Providers Care Spray Gun Sizer Name Role Phone Adeola Villegas MONA Primary Care Provider [phone] Encounter Details Date Type Department Care Team (Late st Contact Info) Description 03/31/2023 7:15 EDT Treatment [facility] [address] [place] [phone] Carlota Jin MD 1 [facility], Level 2 [place] [address] ESRD (end stage renal disease) ([facility]) (Primary Dx); Abnormal albumin Social History Tobacco [...] - Temperature - - Respiratory Rate 20 03/31/2023 0657 EDT Oxygen Saturation - - Inhaled Oxygen Concentration - - Weight 90.4 kg (199 lb 4.7 oz) 03/31/2023 0654 E DT Height - - Body Mass Index 29.01 01/25/2023 0751 EDT documented in this encounter Miscellaneous Notes * Flowsheet Note - Teto Ribeiro RN - 03/31/2023 1432 EDT 03/31/23 1157 Post-Hemodialysis Assessment Total Blood Processed (L) 90.09 Liters On Line Clearance: spKt/V 1.45 spKt/V Dialyzer Clearance Lightly streaked Treatment UFR (ml:kg:hr) 7.83 ml:kg:hr Final Critline Profile (%/hr) 0.12 Final Profile Profile A Fluid Removed (L) 2.91 L Post-Dialysis Scale Weight 88.6 kg (195 lb 5.2 oz) Wheelchair Weight 0 kg (0 lb) Prosthesis Weight 1 kg (2 lb 3.3 oz) (boots) Post-Treatment Weight (kg) 87.6 Treatment Weight Change (kg) 2.8 kg Day Target Weight (kg) 88 Post Sitting/Lying BP 152/87 Post Sitting/Lying pulse 64 Post Standing BP 131/74 Post Standing Pulse 71 Temp 36.2 ??C (97.2 ??F) Temp src Skin Post access assessment AVF/AFG Hemostasis achieved Yes Orientation Alert and Oriented x3 Yes Cooperative Yes Disoriented Yes Wrap up items Patient Response to Treatment Pt sheldon. tx well. No s/s of distress noted Comments Pt denies any complaints, VSS documented in this encounter Plan of Treatment Upcoming Encounters Date Type Department Care Team (Late st Contact Info) Description 12/06/2024 6:45 EST Treatment [facility] [address] [place], [place] [address] Carlota Jin MD [address] [place] [address], [facility] [address] [place] [address] 12/08/2024 6:45 EST Treatment [facility] [address] [place] [phone] Carlota Jin MD [address] [place] [address], [facility] 2 [place] [phone] 12/11/2024 6:45 EST Treatment [facility] [place] [address] [place], [place] [id number] Carlota Jin MD 1 [facility], Level [address] [place] [phone] 12/13/2024 6:45 EST Treatment [facility] [place] [address] [place] [address] Carlota Jin MD 1 [facility], [facility] [address] [place] [phone] 12/15/2024 6:45 EST Treatment [facility] [place] [address] [place] [address] Carlota Jin MD 1 [facility], [facility] [place] [phone] 12/18/2024 6:45 EST Treatment [facility] [place] [address] [place] [address] Carlota Jin MD 1 [facility], Level [address] [place] [phone] 12/20/2024 6:45 EST Treatment [facility] [place] [address] [place], [place] [phone] Carlota Jin MD 1 [facility], Level [address] [place] [phone] 12/22/2024 6:45 EST Treatment [facility] [place] [address] [place], [place] [address] Carlota Jin MD 1 [facility], [facility] 2 [place] [phone] 12/25/2024 6:45 EST Treatment [facility] [place] [address] [place] [address] Carlota Jin MD 1 [facility], [address] [phone] 12/27/2024 6:45 EST Treatment [facility] [place] [address] [place], [place] [id number] Carlota Jin MD 1 [facility], [address] [phone] 12/29/2024 6:45 EST Treatment [facility] [place] [address] [place], [place] [phone] Carlota Jin MD 1 [facility], [address] [phone] 01/01/2025 6:45 EDT Treatment [facility] [place] [address] [place], [place] [phone] Carlota Jin MD [address] [phone] 01/03/2025 6:45 EDT Treatment [facility] [place] [address] [place], [place] [id number] Carlota Jin MD 1 [facility], [facility] 2 [place] [phone] 01/05/2025 6:45 EDT Treatment [facility] [place] [address] [place], [place] [id number] Carlota Jin MD 1 [facility], [facility] 2 [place] [phone] 01/08/2025 6:45 EDT Treatment [facility] [place] [address] [place], [place] [id number] Carlota Jin MD 1 [facility], [facility] 2 [place] [phone] 01/10/2025 6:45 EDT Treatment [facility] [place] [address] [place] [address] Carlota Jin MD 1 [facility], [facility] 2 [place] [phone] 01/12/2025 6:45 EDT Treatment [facility] [place] [address] [place], [place] [id number] Carlota Jin MD 1 [facility], [facility] 2 [place] [phone] 01/15/2025 6:45 EDT Treatment [facility] [place] [address] [place], [place] [id number] Carlota Jin MD 1 [facility], [facility] [place] [phone] 01/17/2025 6:45 EDT Treatment [facility] [place] [address] [place], [place] [address] Carlota Jin MD 1 [facility], [facility] 2 [place] [phone] 01/19/2025 6:45 EDT Treatment [facility] [place] [address] [place], [place] [id number] Carlota Jin MD 1 [facility], [facility] 2 [place] [phone] 01/22/2025 6:45 EDT Treatment [facility] [place] [address] [place], [place] [id number] Carlota Jin MD 1 [facility], [facility] [place] [phone] 01/24/2025 6:45 EDT Treatment [facility] [place] [address] [place], [place] [id number] Carlota Jin MD 1 [facility], [facility] [place] [phone] 01/26/2025 6:45 EDT Treatment [facility] [place] [address] [place], [place] [id number] Carlota Jin MD 1 [facility], [facility] 2 [place] [phone] 01/29/2025 6:45 EDT Treatment [facility] [place] [address] [place], [place] [id number] Carlota Jin MD 1 [facility], [facility] [place] [phone] 01/31/2025 6:45 EDT Treatment [facility] [place] [address] [place], [place] [id number] Carlota Jin MD 1 [facility], [facility] 2 [place] [phone] 02/02/2025 6:45 EDT Treatment [facility] [place] [address] [place], [place] [id number] Carlota Jin MD 1 [facility], [facility] [place] [phone] 02/05/2025 6:45 EDT Treatment [facility] [place] [address] [place], [place] [id number] Carlota Jin MD 1 [facility], [facility] [place] [phone] 02/07/2025 6:45 EDT Treatment [facility] [place] [address] [place] [address] Carlota Jin MD 1 [facility], [facility] [place] [phone] 02/09/2025 6:45 EDT Treatment [facility] [place] [address] [place], [place] [id number] Carlota Jin MD 1 [facility], [facility] [place] [phone] 02/12/2025 6:45 EDT Treatment [facility] [place] [address] [place], [place] [id number] Carlota Jin MD 1 [facility], [address] [phone] 02/14/2025 6:45 EDT Treatment [facility] [place] [address] [place], [place] [id number] Carlota Jin MD [address] [place] [phone] 02/16/2025 6:45 EDT Treatment [facility] [place] [address] [place], [place] [id number] Carlota Jin MD [address] [place] [address], [address] [phone] 02/19/2025 6:45 EDT Treatment [facility] [place] [address] [place], [place] [id number] Carlota Jin MD [address] [place] [phone] 02/21/2025 6:45 EDT Treatment [facility] [place] [address] [place], [place] [phone] Carlota Jin MD [address] [phone] documented as of this encounter Procedures Procedure Name Priority Date/Time Associated Diagnosis Comments COMPLETE BLOOD COUNT Routine 03/31/2023 7:02 EDT ESRD (end stage renal disease) ([facility]) HEMODIALYSIS Routine 03/31/2023 6:57 EDT ESRD (end stage renal disease) ([facility]) documented in this encounter Results * (ABNORMAL) COMPLETE BLOOD COUNT (03/31/2023 7:02 EDT) WBC 6.84 4.00 - 10.40 K/cmm 03/31/2023 21:27 [facility] RBC 3.23(L) 4.36 - 5.78 M/cmm 03/31/2023 21:27 [facility] Hemoglobin 10.3(L) 13.8 - 17.3 g/dL 03/31/2023 21:27 [facility] HCT 30.2(L) 39.5 - 50.2 % 03/31/2023 21:27 [facility] MCV 94 81 - 95 fL 03/31/2023 21:27 [facility] MCH 31.9 27.6 - 33.0 pg 03/31/2023 21:27 [facility] MCHC 34.1 32.8 - 36.4 g/dL 03/31/2023 21:27 [facility] RDW-CV 12.1 <14.2 % 03/31/2023 21:27 [facility] RDW-SD 41.7 <46.0 fl 03/31/2023 21:27 [facility] PLT 250 141 - 377 K/cmm 03/31/2023 21:27 [facility] MPV 11.7 9.5 - 12.7 fL 03/31/2023 21:27 [facility] Blood VENOUS BLOOD / Unknown Venipuncture / Unknown 03/31/2023 7:02 EDT 03/31/2023 7:02 EDT us Carlota Jin MD HEMATOLOGY & PF4 ORDERABL ES Final Result [facility] [address] [place] [address] documented in this encounter Visit Diagnoses Diagnosis ESRD (end stage renal disease) ([facility])- Primary End stage renal disease Abnormal albumin Other nonspecific findings on examination of blood documented in this encounter Administered Medications Inactive Administered Medications - up to 3 most recent administrations Medication Order MAR Action Action Date Dose Rate Site heparin injection 9,000 Units 9,000 Units, intravenous, ONCE IN DIALYSIS, 1 dose, On Wed03/31/23 at 0715, Routine, Dialysis, Now x1 bolus 4500 units to be given at the beginning of dialysis 1500 units/hour to be given over the course of dialysis (9000 units total). Stop 1 hour prior to end of treatment. To be administered per Policy [id number].Indications:ESRD (end stage renal disease) ([facility]) Given 03/31/2023 7:10 EDT 9,000 Units nepro w/ carb steady bolus 237 mL 237 mL (1 Package), oral, ONCE IN DIALYSIS, 1 dose, On Wed03/31/23 at 0715, RoutineIndications:ESRD (end stage renal disease) ([facility]),Abnormal albumin Given 03/31/2023 7:44 EDT 237 mL documented in this encounter Orders Dialysis Count Last Ordered Date First Orde red Date HEMODIALYSIS 1 03/31/2023 documented in this encounter Care Teams Spray Gun Sizer Relationship Specialty Start Date End Date Adeola Villegas APRN [address] [place] [address] PCP - General 10/12/16 07/06/23 documented as of this encounter
--- OUTSIDE RECORDS SUMMARY | 2024-12-05 12:25 | XMS_ITS | Encounter Summary ---
Author Organization [facility] Address [address] [place] [address] Care Team Providers Care Body Piercer Name Role Phone Adeola Villegas MONA Primary Care Provider [phone] Encounter Details Date Type Department Care Team (Late st Contact Info) Description 03/22/2023 7:15 EDT Treatment [facility] [address] [place], [place] [phone] Carlota Jin MD [address] [facility], Level [address] [place] [address] ESRD (end stage renal disease) ([facility]) (Primary Dx); Anemia of chronic [...] - Temperature - - Respiratory Rate 17 03/22/2023 1112 EDT Oxygen Saturation - - Inhaled Oxygen Concentration - - Weight 90.4 kg (199 lb 4.7 oz) 03/22/2023 0650 E DT Height - - Body Mass Index 29.01 01/25/2023 0751 EDT documented in this encounter Miscellaneous Notes * Flowsheet Note - Chad Cabrera RN - 03/22/2023 1328 EDT 03/22/23 1112 Post-Hemodialysis Assessment Total Blood Processed (L) 83.07 Liters On Line Clearance: spKt/V 1.36 spKt/V Dialyzer Clearance Lightly streaked Treatment UFR (ml:kg:hr) 8.76 ml:kg:hr Final Critline Profile (%/hr) -2.75 Final Profile Profile A Critline refill Negative (RN cleared machine before H1 and H2 were written down) Fluid Removed (L) 2.9 L Post-Dialysis Scale Weight 87.5 kg (192 lb 14.4 oz) Wheelchair Weight 0 kg (0 lb) Prosthesis Weight 0 kg (0 lb) Post-Treatment Weight (kg) 87.5 Treatment Weight Change (kg) 2.9 kg Day Target Weight (kg) 88 Post Sitting/Lying BP 132/76 Post Sitting/Lying pulse 72 Post Standing BP 113/71 Post Standing Pulse 73 Temp 36.5 ??C (97.7 ??F) Temp src Temporal Resp 17 Post [...] [facility] [place] [address] [place] [address] Carlota Jin MD 1 [facility], Level [address] [place] [address] 12/08/2024 6:45 EST Treatment [facility] [place] [address] [place], [place] [id number] Carlota Jin MD 1 [facility], [facility] 2 [place] [phone] 12/11/2024 6:45 EST Treatment [facility] [place] [address] [place], [place] [phone] Carlota Jin MD 1 [facility], [facility] 2 [place] [phone] 12/13/2024 6:45 EST Treatment [facility] [place] [address] [place], [place] [phone] Carlota Jin MD [address] [facility], [facility] 2 [place] [phone] 12/15/2024 6:45 EST Treatment [facility] [place] [address] [place], [place] [phone] Carlota Jin MD [address] [facility], [address] [phone] 12/18/2024 6:45 EST Treatment [facility] [place] [address] [place], [place] [phone] Carlota Jin MD 1 [facility], [facility] 2 [place] [phone] 12/20/2024 6:45 EST Treatment [facility] [place] [address] [place], [place] [phone] Carlota Jin MD 1 [facility], [facility] 2 [place] [phone] 12/22/2024 6:45 EST Treatment [facility] [place] [address] [place], [place] [phone] Carlota Jin MD [address] [facility], [facility] 2 [place] [phone] 12/25/2024 6:45 EST Treatment [facility] [place] [address] [place], [place] [phone] Carlota Jin MD [address] [facility], [facility] 2 [place] [phone] 12/27/2024 6:45 EST Treatment [facility] [place] [address] [place], [place] [address] [phone]ota Jin MD [address] [facility], [facility] 2 [place] [phone] 12/29/2024 6:45 EST Treatment [facility] [place] [address] [place] [address] Carlota Jin MD 1 [facility], [facility] 2 [place] [phone] 01/01/2025 6:45 EDT Treatment [facility] [place] [address] [place], [place] [phone] Carlota Jin MD 1 [facility], [facility] 2 [place] [phone] 01/03/2025 6:45 EDT Treatment [facility] [place] [address] [place], [place] [id number] Carlota Jin MD 1 [facility], [address] [phone] 01/05/2025 6:45 EDT Treatment [facility] [place] [address] [place] [address] Carlota Jin MD [address] [facility], [address] [phone] 01/08/2025 6:45 EDT Treatment [facility] [place] [address] [place], [place] [phone] Carlota Jin MD [address] [facility], [address] [phone] 01/10/2025 6:45 EDT Treatment [facility] [place] [address] [place], [place] [phone] Carlota Jin MD [address] [facility], [address] [phone] 01/12/2025 6:45 EDT Treatment [facility] [place] [address] [place], [place] [phone] Carlota Jin MD [address] [phone] 01/15/2025 6:45 EDT Treatment [facility] [place] [address] [place], [place] [id number] Carlota Jin MD [address] [facility], [facility] 2 [place] [phone] 01/17/2025 6:45 EDT Treatment [facility] [place] [address] [place], [place] [id number] Carlota Jin MD [address] [facility], [facility] 2 [place] [phone] 01/19/2025 6:45 EDT Treatment [facility] [place] [address] [place], [place] [id number] Carlota Jin MD [address] [facility], [facility] 2 [place] [phone] 01/22/2025 6:45 EDT Treatment [facility] [place] [address] [place], [place] [phone] Carlota Jin MD [address] [place] [address], [address] [phone] 01/24/2025 6:45 EDT Treatment [facility] [place] [address] [place], [place] [id number] Carlota Jin MD [address] [facility], [facility] 2 [place] [phone] 01/26/2025 6:45 EDT Treatment [facility] [place] [address] [place], [place] [phone] Carlota Jin MD [address] [facility], [facility] 2 [place] [phone] 01/29/2025 6:45 EDT Treatment [facility] [place] [address] [place], [place] [id number] Carlota Jin MD [address] [facility], [facility] 2 [place] [phone] 01/31/2025 6:45 EDT Treatment [facility] [place] [address] [place], [place] [phone] Carlota Jin MD 1 [facility], [address] [phone] 02/02/2025 6:45 EDT Treatment [facility] [place] [address] [place], [place] [phone] Carlota Jin MD 1 [facility], [address] [phone] 02/05/2025 6:45 EDT Treatment [facility] [place] [address] [place], [place] [id number] Carlota Jin MD 1 [facility], [address] [phone] 02/07/2025 6:45 EDT Treatment [facility] [place] [address] [place], [place] [id number] Carlota Jin MD 1 [facility], [facility] 2 [place] [phone] 02/09/2025 6:45 EDT Treatment [facility] [place] [address] [place], [place] [phone] Carlota Jin MD 1 [facility], [facility] 2 [place] [phone] 02/12/2025 6:45 EDT Treatment [facility] [place] [address] [place], [place] [id number] Carlota Jin MD 1 [facility], [facility] 2 [place] [phone] 02/14/2025 6:45 EDT Treatment [facility] [place] [address] [place], [place] [phone] Carlota Jin MD [address] [facility], [facility] 2 [place] [phone] 02/16/2025 6:45 EDT Treatment [facility] [place] [address] [place], [place] [address] Carlota Jin MD 1 [facility], [facility] 2 [place] [phone] 02/19/2025 6:45 EDT Treatment [facility] [place] [address] [place] [address] Carlota Jin MD 1 [facility], [facility] 2 [place] [phone] 02/21/2025 6:45 EDT Treatment [facility] [place] [address] [place], [place] [address] Carlota Jin MD 1 [facility], [facility] 2 [place] [phone] documented as of this encounter Procedures Procedure Name Priority Date/Time Associated Diagnosis Comments HEMODIALYSIS Routine 03/22/2023 7:17 EDT ESRD (end stage renal disease) ([facility] [...] intravenous, ONCE IN DIALYSIS, 1 dose, On Wed03/22/23 at 0745, Routine, DialysisIndications:ESRD (end stage renal disease) ([facility]),Anemia of chronic renal failure, unspecified CKD stage Given 03/22/2023 8:32 EDT 500 Units heparin injection 9,000 Units 9,000 Units, intravenous, ONCE IN DIALYSIS, 1 dose, On Wed03/22/23 at 0745, Routine, Dialysis, Now x1 bolus 4500 units to be given at the beginning of dialysis 1500 units/hour to be given over the course of dialysis (9000 units total). Stop 1 hour prior to end of treatment. To be administered per Policy [id number].Indications:ESRD (end stage renal disease) ([facility]) Given 03/22/2023 7:25 EDT 9,000 Units nepro w/ carb steady bolus 237 mL 237 mL (1 Package), oral, ONCE IN DIALYSIS, 1 dose, On Wed03/22/23 at 0745, RoutineIndications:ESRD (end stage renal disease) ([facility]),Abnormal albumin Given 03/22/2023 8:32 EDT 237 mL documented in this encounter Orders Dialysis Count Last Ordered Date First Orde red Date HEMODIALYSIS 1 03/22/2023 documented in this encounter Care Teams Body Piercer Relationship Specialty Start Date End Date Adeola Villegas APRN [address] [place] [address] PCP - General 10/12/16 07/06/23 documented as of this encounter
--- OUTSIDE RECORDS SUMMARY | 2024-12-05 12:25 | XMS_ITS | Encounter Summary ---
Author Organization [facility] Address [address] [place] [address] Care Team Providers Care Weigh Tank Operator Name Role Phone Adeola Villegas MONA Primary Care Provider Encounter Details Date Type Department Care Team (Late st Contact Info) Description 03/29/2023 7:15 EDT Treatment [facility] [address] [place], [place] [id number] Carlota Jin MD 1 [facility], Level [address] [place] [address] ESRD (end stage renal disease) ([facility]) (Primary Dx); Anemia of chronic renal [...] - Temperature - - Respiratory Rate 17 03/29/2023 0705 EDT Oxygen Saturation - - Inhaled Oxygen Concentration - - Weight 91.5 kg (201 lb 11.5 oz) 03/29/2023 0705 EDT Height - - Body Mass Index 29.36 01/25/2023 0751 EDT documented in this encounter Miscellaneous Notes * Flowsheet Note - Teto Ribeiro RN - 03/29/2023 1617 EDT 03/29/23 1252 Post-Hemodialysis Assessment Total Blood Processed (L) 89.24 Liters On Line Clearance: spKt/V 1.45 spKt/V Dialyzer Clearance Lightly streaked Treatment UFR (ml:kg:hr) 5.47 ml:kg:hr Fluid Removed (L) 3.15 L Post-Dialysis Scale Weight 89.5 kg (197 lb 5 oz) Wheelchair Weight 0 kg (0 lb) Prosthesis Weight 0 kg (0 lb) Post-Treatment Weight (kg) 89.5 Treatment Weight Change (kg) 2 kg Day Target Weight (kg) 88.5 Post Sitting/Lying BP 152/75 Post Sitting/Lying pulse 66 Post Standing BP 143/79 Post Standing Pulse 70 Temp 36.7 ??C (98.1 ??F) Temp src Skin Post access assessment Bruit present: Yes Thrill Present AVF/AFG Hemostasis achieved Yes Orientation Alert and Oriented x3 Yes Cooperative Yes Disoriented No Discharge Ambulation Methods Ambulatory without assistance Wrap up items Patient Response to Treatment Cramping noted during treatment was resolved with NSS. removed 1.4L goal, VSS upon discharge Comments No issues concerns voiced post-tx documented in this encounter Plan of Treatment Upcoming Encounters Date Type Department Care Team (Late st Contact Info) Description 12/06/2024 6:[address] [facility] - [place] [address] [place], [place] [address] Carlota Jin MD [address] [place] [phone] 12/08/2024 6:[address] [facility] [place] [address] [place] [address] Carlota Jin MD [address] [place] [address] [place] [phone] 12/11/2024 6:[address] [facility] [place] [address] [place], [place] [phone] Carlota Jin MD 1 [facility], [facility] 2 [place] [phone] 12/13/2024 6:[address] [facility] - [place] [address] [place], [place] [phone] Carlota Jin MD 1 [facility], [facility] 2 [place] [phone] 12/15/2024 6:[address] [facility] [place] [address] [place], [place] [phone] Carlota Jin MD 1 [facility], [facility] 2 [place] [phone] 12/18/2024 6:[address] [facility] [place] [address] [place], [place] [phone] Carlota Jin MD 1 [facility], [facility] 2 [place] [phone] 12/20/2024 6:[address] [facility] [place] [address] [place], [place] [phone] Carlota Jin MD 1 [facility], [facility] 2 [place] [phone] 12/22/2024 6:[address] [facility] [place] [address] [place], [place] [address] Carlota Jin MD 1 [facility], [facility] [address] [place] [phone] 12/25/2024 6:[address] [facility] - [place] [address] [place], [place] [phone] Carlota Jin MD 1 [facility], [facility] 2 [place] [phone] 12/27/2024 6:[address] [facility] [place] [address] [place], [place] [phone] Carlota Jin MD 1 [facility], [facility] 2 [place] [phone] 12/29/2024 6:[address] [facility] [place] [address] [place], [place] [phone] Carlota Jin MD 1 [facility], [facility] 2 [place] [phone] 01/01/2025 6:[address] [facility] [place] [address] [place], [place] [phone] Carlota Jin MD 1 [facility], [facility] 2 [place] [phone] 01/03/2025 6:[address] [facility] [place] [address] [place], [place] [phone] Carlota Jin MD 1 [facility], [facility] 2 [place] [phone] 01/05/2025 6:[address] [facility] [place] [address] [place], [place] [phone] Carlota Jin MD 1 [facility], [facility] 2 [place] [phone] 01/08/2025 6:[address] [facility] - [place] [address] [place], [place] [phone] Carlota Jin MD 1 [facility], [facility] 2 [place] [phone] 01/10/2025 6:[address] [facility] - [place] [address] [place], [place] [phone] Carlota Jin MD 1 [facility], [facility] 2 [place] [phone] 01/12/2025 6:[address] [facility] [place] [address] [place], [place] [phone] Carlota Jin MD 1 [facility], [facility] 2 [place] [phone] 01/15/2025 6:[address] [facility] [address] [place], [place] [phone] Carlota Jin MD 1 [facility], [facility] 2 [place] [phone] 01/17/2025 6:[address] [facility] [place] [address] [place], [place] [phone] Carlota Jin MD 1 [facility], [facility] 2 [place] [phone] 01/19/2025 6:[address] [facility] [place] [address] [place], [place] [phone] Carlota Jin MD [address] [place] [address], [address] [phone] 01/22/2025 6:[address] [facility] [place] [address] [place], [place] [phone] Carlota Jin MD [address] [place] [address], [address] [phone] 01/24/2025 6:[address] [facility] [place] [address] [place], [place] [phone] Carlota Jin MD 1 [facility], [facility] 2 [place] [phone] 01/26/2025 6:[address] [facility] [place] [address] [place], [place] [phone] Carlota Jin MD 1 [facility], [facility] 2 [place] [phone] 01/29/2025 6:[address] [facility] [place] [address] [place], [place] [phone] Carlota Jin MD 1 [facility], [facility] 2 [place] [phone] 01/31/2025 6:[address] [facility] [place] [address] [place], [place] [address] Carlota Jin MD 1 [facility], [facility] 2 [place] [phone] 02/02/2025 6:[address] [facility] - [place] [address] [place], [place] [phone] Carlota Jin MD 1 [facility], [facility] 2 [place] [phone] 02/05/2025 6:[address] [facility] [place] [address] [place] [address] Carlota Jin MD 1 [facility], [facility] 2 [place] [phone] 02/07/2025 6:[address] [facility] [place] [place] [address] [place] [address] Carlota Jin MD 1 [facility], [facility] 2 [place] [phone] 02/09/2025 6:[address] [facility] [place] - [place] [address] [place], [place] [phone] Carlota Jin MD 1 [facility], [facility] 2 [place] [phone] 02/12/2025 6:[address] [facility] [place] [address] [place], [place] [phone] Carlota Jin MD [address] [phone] 02/14/2025 6:[address] [facility] [place] [address] [place], [place] [phone] Carlota Jin MD [address] [phone] 02/16/2025 6:[address] [facility] [place] [address] [place], [place] [phone] Carlota Jin MD [address] [place] [phone] 02/19/2025 6:[address] [facility] [place] [place] [address] [place], [place] [phone] Carlota Jin MD [address] [place] [phone] 02/21/2025 6:[address] [facility] [place] [place] [address] [place], [place] [phone] Carlota Jin MD [address] [phone] documented as of this encounter Procedures Procedure Name Priority Date/Time Associated Diagnosis Comments POSTDIALYSIS BUN WITH URR CALCULATION Routine 03/29/2023 13:10 EDT ESRD (end stage renal disease) ([facility]) TRANSFERRIN SATURATION Routine 03/29/2023 7:15 EDT ESRD (end stage renal disease) ([facility]) DIALYSIS ROUTINE - DIALYSIS ONLY (BUN, K, NA, CL, CO2, SANJEEV, ALB, MG, PHOS, ALKP, AST) Routine 03/29/2023 7:15 EDT ESRD (end stage renal disease) ([facility]) PROFILE IRON STUDIES (INCLUDES IRON, IBC, AND FERRITIN) Routine 03/29/2023 7:15 EDT ESRD (end stage renal disease) ([facility]) FERRITIN Routine 03/29/2023 7:15 EDT ESRD (end stage renal disease) ([facility]) HEMODIALYSIS Routine 03/29/2023 7:12 EDT ESRD (end stage renal disease) ([facility]) documented in this encounter Results * (ABNORMAL) POSTDIALYSIS BUN WITH URR CALCULATION (03/29/2023 13:10 EDT) BUN, Postdialysis 23 10 - 26 mg/dL 03/29/2023 22:17 EDT [facility] Urea Reduction Rate 72.3 Not Established % 03/29/2023 22:17 T [facility] Comment: NOTE: Reference range not established for Urea Reduction Rate. BUN 83(H) 10 - 26 mg/dL 03/29/2023 22:17 EDT [facility] Blood VENOUS BLOOD / Unknown Venipuncture / Unknown 03/29/2023 13:10 EDT 03/29/2023 13:10 EDT us Carlota Jin MD CHEMISTRY & BLOOD GAS ORD ERABLES Final Result [facility] [address] [place] [address] * (ABNORMAL) FERRITIN (03/29/2023 7:15 EDT) Ferritin 701(H) 22 - 322 ng/mL 03/30/2023 10:48 EDT [facility] Blood VENOUS BLOOD / Unknown Venipuncture / Unknown 03/29/2023 7:15 EDT 03/29/2023 7:15 EDT Carlota Jin MD CHEMISTRY & BLOOD GAS ORD ERABLES Final Result Performing Organization Address [facility] de Phone Number [facility] [address] [place] [address] * TRANSFERRIN SATURATION (03/29/2023 7:15 EDT) Iron 69 49 - 181 ??g/dL 03/29/2023 22:22 EDT [facility] Iron Binding Capacity 256 240 - 450 ??g/dL 03/29/2023 22:22 EDT [facility] Transferrin Saturation 27 15 - 45 % 03/29/2023 22:22 EDT [facility] Blood VENOUS BLOOD / Unknown Venipuncture / Unknown 03/29/2023 7:15 EDT 03/29/2023 7:15 EDT Carlota Jin MD CHEMISTRY & BLOOD GAS ORD ERABLES Final Result Performing Organization Address [facility] de Phone Number [facility] [address] [place] [address] * (ABNORMAL) DIALYSIS ROUTINE - DIALYSIS ONLY (BUN, K, NA, CL, CO2, SANJEEV, ALB, MG, PHOS, ALKP, AST) (03/29/2023 7:15 EDT) Sodium 138 136 - 145 mmol/L 03/29/2023 22:12 EDT [facility] Potassium 5.2(H) 3.5 - 5.0 mmol/L 03/29/2023 22:12 EDT [facility] Chloride 97 96 - 110 mmol/L 03/29/2023 22:12 EDT [facility] CO2 Total 26 22 - 32 mmol/L 03/29/2023 22:12 [facility] Calcium 8.4(L) 8.5 - 10.5 mg/dL 03/29/2023 22:12 [facility] Albumin 3.3(L) 3.4 - 4.9 g/dL 03/29/2023 22:12 [facility] Phosphorus 8.1(H) 2.5 - 4.5 mg/dL 03/29/2023 22:12 [facility] Calcium Phos Product 68.0 See Note mg/dL 03/29/2023 22:12 [facility] Comment: NOTE: Reference range not established BUN, Predialysis 83(H) 10 - 26 mg/dL 03/29/2023 22:12 [facility] AST 23 15 - 46 U/L 03/29/2023 22:12 [facility] Alkaline Phosphatase 92 38 - 126 U/L 03/29/2023 22:12 [facility] Magnesium 2.5 1.7 - 2.8 mg/dL 03/29/2023 22:12 [facility] Anion Gap 15(H) 5 - 14 mmol/L 03/29/2023 22:12 [facility] Calculated Calcium 9.0 8.9 - 10.5 mg/dL 03/29/2023 22:12 [facility] Blood VENOUS BLOOD / Unknown Venipuncture / Unknown 03/29/2023 7:15 EDT 03/29/2023 7:15 EDT us Carlota Jin MD CHEMISTRY & BLOOD GAS ORD ERABLES Final Result [facility] [address] [place] [address] documented in this encounter Visit Diagnoses Diagnosis [...] intravenous, ONCE IN DIALYSIS, 1 dose, On Wed03/29/23 at 0730, Routine, DialysisIndications:ESRD (end stage renal disease) ([facility]),Anemia of chronic renal failure, unspecified CKD stage Given 03/29/2023 9:22 EDT 500 Units heparin injection 9,000 Units 9,000 Units, intravenous, ONCE IN DIALYSIS, 1 dose, On Wed03/29/23 at 0730, Routine, Dialysis, Now x1 bolus 4500 units to be given at the beginning of dialysis 1500 units/hour to be given over the course of dialysis (9000 units total). Stop 1 hour prior to end of treatment. To be administered per Policy [id number].Indications:ESRD (end stage renal disease) ([facility]) Given 03/29/2023 7:23 EDT 9,000 Units nepro w/ carb steady bolus 237 mL 237 mL (1 Package), oral, ONCE IN DIALYSIS, 1 dose, On Wed03/29/23 at 0730, RoutineIndications:ESRD (end stage renal disease) ([facility]),Abnormal albumin Given 03/29/2023 9:22 EDT 237 mL documented in this encounter Orders Dialysis Count Last Ordered Date First Orde red Date HEMODIALYSIS 1 03/29/2023 documented in this encounter Care Teams Weigh Tank Operator Relationship Specialty Start Date End Date Adeola Villegas APRN [id number] [place] [address] PCP - General 10/12/16 07/06/23 documented as of this encounter
--- OUTSIDE RECORDS SUMMARY | 2024-12-05 12:25 | XMS_ITS | Encounter Summary ---
Author Organization [facility] Address [address] [place] [address] Care Team Providers Care Supplier Quality Engineering Manager Name Role Phone Adeola Villegas MONA Primary Care Provider [phone] Encounter Details Date Type Department Care Team (Late st Contact Info) Description 04/02/2023 7:15 EDT Treatment [facility] [address] [place] [id number] Carlota Jin MD 1 [facility], Level 2 [place] [address] ESRD (end stage renal disease) ([facility]) (Primary Dx); Anemia of chronic renal [...] - Temperature - - Respiratory Rate 18 04/02/2023 0654 EDT Oxygen Saturation - - Inhaled Oxygen Concentration - - Weight 89.4 kg (197 lb 1.5 oz) 04/02/2023 0654 E DT Height - - Body Mass Index 28.69 01/25/2023 0751 EDT documented in this encounter Miscellaneous Notes * Flowsheet Note - Melissa Crespo RN - 04/02/2023 2433 EDT 04/02/23 1204 Post-Hemodialysis Assessment Total Blood Processed (L) 46.3 Liters On Line Clearance: spKt/V 1.37 spKt/V Dialyzer Clearance Lightly streaked Treatment UFR (ml:kg:hr) 6.88 ml:kg:hr Fluid Removed (L) 1.69 L Post-Dialysis Scale Weight 86.9 kg (191 lb 9.3 oz) Wheelchair Weight 0 kg (0 lb) Prosthesis Weight 0 kg (0 lb) Post-Treatment Weight (kg) 86.9 Treatment Weight Change (kg) 2.5 kg Day Target Weight (kg) 88 Post Sitting/Lying BP 136/71 Post Sitting/Lying pulse 68 Post Standing BP 118/69 Post Standing Pulse 72 Temp 36.8 ??C (98.2 ??F) Temp src Skin Post access assessment AVF/AFG Hemostasis achieved Yes Orientation Alert and Oriented x3 Yes Cooperative Yes Disoriented No Discharge Ambulation Methods Ambulatory without assistance Wrap up items Patient Response to Treatment Tolerated tx. Removed 1700 / 1900 UF goal. Comments No concerns voiced post tx. Stable upon DC from unit. documented in this encounter Plan of Treatment Upcoming Encounters Date Type Department Care Team (Late st Contact Info) Description 12/06/2024 6:45 EST Treatment [facility] [address] [place] [id number] Carlota Jin MD 1 [facility], [facility] 2 [place] [address] 12/08/2024 6:45 EST Treatment [facility] [address] [place] [id number] Carlota Jin MD 1 [facility], [facility] 2 [place] [address] 12/11/2024 6:45 EST Treatment [facility] - [place] [address] [place], [place] [phone] Carlota Jin MD 1 [facility], [facility] 2 [place] [phone] 12/13/2024 6:45 EST Treatment [facility] [place] - [place] [address] [place], [place] [phone] Carlota Jin MD 1 [facility], [facility] 2 [place] [phone] 12/15/2024 6:45 EST Treatment [facility] [address] [place], [place] [phone] Carlota Jin MD 1 [facility], [facility] 2 [place] [phone] 12/18/2024 6:45 EST Treatment [facility] [address] [place], [place] [id number] Carlota Jin MD 1 [facility], [facility] 2 [place] [phone] 12/20/2024 6:45 EST Treatment [facility] D[place]i [place] [address] [place], [place] [phone] Carlota Jin MD 1 [facility], [facility] 2 [place] [phone] 12/22/2024 6:45 EST Treatment [facility] [address] [place], [place] [phone] Carlota Jin MD [address] [facility], [facility] 2 [place] [phone] 12/25/2024 6:45 EST Treatment [facility] - [place] [address] [place], [place] [phone] Carlota Jin MD [address] [facility], [facility] 2 [place] [phone] 12/27/2024 6:45 EST Treatment [facility]ys[facility] - [place] [address] [place] [address] Carlota Jin MD 1 [facility], [facility] 2 [place] [phone] 12/29/2024 6:45 EST Treatment [facility] [place] [place] [address] [place], [place] [phone] Carlota Jin MD 1 [facility], [address] [phone] 01/01/2025 6:45 EDT Treatment [facility] - [place] [address] [place] [address] Carlota Jin MD 1 [facility], [facility] 2 [place] [phone] 01/03/2025 6:45 EDT Treatment [facility] - [place] [address] [place], [place] [phone] Carlota Jin MD 1 [facility], [facility] 2 [place] [phone] 01/05/2025 6:45 EDT Treatment [facility] [place] [place] [address] [place], [place] [id number] Carlota Jin MD 1 [facility], [facility] 2 [place] [phone] 01/08/2025 6:45 EDT Treatment [facility] [place] [place] [address] [place], [place] [phone] Carlota Jin MD [address] [place] [address], [facility] 2 [place] [phone] 01/10/2025 6:45 EDT Treatment [facility] [place] [address] [place] [address] Carlota Jin MD [address] [place] [address], [facility] 2 [place] [phone] 01/12/2025 6:45 EDT Treatment [facility] [place] [address] [place] [address] Carlota Jin MD [address] [place] [address], [facility] 2 [place] [phone] 01/15/2025 6:45 EDT Treatment [facility] [place] [place] [address] [place], [place] [phone] Carlota Jin MD [address] [place] [address], [facility] 2 [place] [phone] 01/17/2025 6:45 EDT Treatment [facility] - [place] [address] [place], [place] [id number] Carlota Jin MD 1 [facility], [address] [phone] 01/19/2025 6:45 EDT Treatment [facility] - [place] [address] [place] [address] Carlota Jin MD 1 [facility], [address] [phone] 01/22/2025 6:45 EDT Treatment [facility] - [place] [address] [place], [place] [phone] Carlota Jin MD 1 [facility], [address] [phone] 01/24/2025 6:45 EDT Treatment [facility] - [place] [address] [place], [place] [phone] Carlota Jin MD 1 [facility], [address] [phone] 01/26/2025 6:45 EDT Treatment [facility] - [place] [address] [place], [place] [phone] Carlota Jin MD [address] [phone] 01/29/2025 6:45 EDT Treatment [facility] - [place] [address] [place], [place] [phone] Carlota Jin MD 1 [facility], [facility] 2 [place] [phone] 01/31/2025 6:45 EDT Treatment [facility] [place] [place] [address] [place], [place] [phone] Carlota Jin MD [address] [facility], [facility] 2 [place] [phone] 02/02/2025 6:45 EDT Treatment [facility] - [place] [address] [place], [place] [phone] Carlota Jin MD 1 [facility], [facility] 2 [place] [phone] 02/05/2025 6:45 EDT Treatment [facility] [place] [place] [address] [place], [place] [phone] Carlota Jin MD 1 [facility], [facility] 2 [place] [phone] 02/07/2025 6:45 EDT Treatment [facility] - [place] [address] [place], [place] [phone] Carlota Jin MD [address] [facility], [facility] 2 [place] [phone] 02/09/2025 6:45 EDT Treatment [facility] D[place]i [place] [address] [place], [place] [phone] Carlota Jin MD 1 [facility], [facility] 2 [place] [phone] 02/12/2025 6:45 EDT Treatment [facility] [place] [address] [place], [place] [phone] Carlota Jin MD [address] [phone] 02/14/2025 6:45 EDT Treatment [facility] [place] [place] [address] [place], [place] [phone] Carlota Jin MD [address] [phone] 02/16/2025 6:45 EDT Treatment [facility] [place] [address] [place], [place] [phone] Carlota Jin MD [address] [phone] 02/19/2025 6:45 EDT Treatment [facility] - [place] [address] [place], [place] [phone] Carlota Jin MD [address] [phone] 02/21/2025 6:45 EDT Treatment [facility] - [place] [address] [place], [place] [phone] Carlota Jin MD [address] [phone] documented as of this encounter Procedures Procedure Name Priority Date/Time Associated Diagnosis Comments HEMODIALYSIS Routine 04/02/2023 6:55 EDT ESRD (end stage renal disease) ([facility] [...] intravenous, ONCE IN DIALYSIS, 1 dose, On Wed04/02/23 at 0715, Routine, DialysisIndications:ESRD (end stage renal disease) ([facility]),Anemia of chronic renal failure, unspecified CKD stage Given 04/02/2023 7:35 EDT 500 Units heparin injection 9,000 Units 9,000 Units, intravenous, ONCE IN DIALYSIS, 1 dose, On Wed04/02/23 at 0715, Routine, Dialysis, Now x1 bolus 4500 units to be given at the beginning of dialysis 1500 units/hour to be given over the course of dialysis (9000 units total). Stop 1 hour prior to end of treatment. To be administered per Policy [id number].Indications:ESRD (end stage renal disease) ([facility]) Given 04/02/2023 7:07 EDT 9,000 Units nepro w/ carb steady bolus 237 mL 237 mL (1 Package), oral, ONCE IN DIALYSIS, 1 dose, On Wed04/02/23 at 0715, RoutineIndications:ESRD (end stage renal disease) ([facility]),Abnormal albumin Given 04/02/2023 7:35 EDT 237 mL documented in this encounter Orders Dialysis Count Last Ordered Date First Orde red Date HEMODIALYSIS 1 04/02/2023 documented in this encounter Care Teams Supplier Quality Engineering Manager Relationship Specialty Start Date End Date Adeola Villegas APRN [address] [place] [address] PCP - General 10/12/16 07/06/23 documented as of this encounter
--- OUTSIDE RECORDS SUMMARY | 2024-12-05 12:25 | XMS_ITS | Encounter Summary ---
Author Organization [facility] Address [address] [place] [address] Care Team Providers Care Assembler Corncob Pipes Name Role Phone Adeola Villegas APRN Primary Care Provider [phone] Encounter Details Date Type Department Care Team (Late st Contact Info) Description 04/09/2023 Documentation Visit [facility] [address] [place], [place] [phone] Melissa Crespo, RN Social History Tobacco Use [...] [facility] [address] [place] MD [id number] Carlota Jin MD 1 [facility] Level [address] [place] [address] 12/08/2024 6:45 EST Treatment [facility] Dial[facility] [address] [place] [id number] Carlota Jin MD 1 [facility] 2 [place] [phone] 12/11/2024 6:45 EST Treatment [facility] [place] [address] [place], [place] [id number] Carlota Jin MD 1 [facility], [facility] 2 [place] [phone] 12/13/2024 6:45 EST Treatment [facility] [place] [address] [place], [place] [id number] Carlota Jin MD 1 [facility], [facility] 2 [place] [phone] 12/15/2024 6:45 EST Treatment [facility] [place] [place] [address] [place], [place] [phone] Carlota Jin MD 1 [facility], [facility] 2 [place] [phone] 12/18/2024 6:45 EST Treatment [facility] Dial[facility] [address] [place] [address] Carlota Jin MD 1 [facility], [facility] 2 [place] [phone] 12/20/2024 6:45 EST Treatment [facility] [place] [place] [address] [place], [place] [phone] Carlota Jin MD 1 [facility], [facility] 2 [place] [phone] 12/22/2024 6:45 EST Treatment [facility] [place] [place] [address] [place], [place] [phone] Carlota Jin MD 1 [facility], [facility] 2 [place] [phone] 12/25/2024 6:45 EST Treatment [facility] [place] [place] [address] [place], [place] [phone] Carlota Jin MD 1 [facility], [facility] 2 [place] [phone] 12/27/2024 6:45 EST Treatment [facility] [place] [place] [address] [place], [place] [phone] Carlota Jin MD 1 [facility], [facility] 2 [place] [phone] 12/29/2024 6:45 EST Treatment [facility] [place] [place] [address] [place], [place] [phone] Carlota Jin MD 1 [facility], [facility] 2 [place] [phone] 01/01/2025 6:45 EDT Treatment [facility] [place] [place] [address] [place], [place] [phone] Carlota Jin MD 1 [facility], [facility] 2 [place] [phone] 01/03/2025 6:45 EDT Treatment [facility] [place] [place] [address] [place], [place] [phone] Carlota Jin MD [address] [facility], Level [address] [place] [phone] 01/05/2025 6:45 EDT Treatment [facility] [place] [place] [address] [place], [place] [id number] Carlota Jin MD 1 [facility], [facility] 2 [place] [phone] 01/08/2025 6:45 EDT Treatment [facility] [place] [address] [place], [place] [phone] Carlota Jin MD 1 [facility], [facility] 2 [place] [phone] 01/10/2025 6:45 EDT Treatment [facility] [place] [address] [place] [address] Carlota Jin MD 1 [facility], [facility] 2 [place] [phone] 01/12/2025 6:45 EDT Treatment [facility] [address] [place] [address] [address] Jin MD [address] [facility], [facility] 2 [place] [phone] 01/15/2025 6:45 EDT Treatment [facility] Dial[facility]i [facility] [address] [place], [place] [phone] Carlota Jin MD 1 [facility], [facility] 2 [place] [phone] 01/17/2025 6:45 EDT Treatment [facility] [place] [place] [address] [place], [place] [phone] Carlota Jin MD 1 [facility], [facility] 2 [place] [phone] 01/19/2025 6:45 EDT Treatment [facility] [place] [place] [address] [place], [place] [id number] Carlota Jin MD 1 [facility], [facility] 2 [place] [phone] 01/22/2025 6:45 EDT Treatment [facility] [place] [address] [place], [place] [phone] Carlota Jin MD [address] [place] [address], [facility] 2 [place] [phone] 01/24/2025 6:45 EDT Treatment [facility] [place] [place] [address] [place], [place] [id number] Carlota Jin MD 1 [facility], [facility] 2 [place] [phone] 01/26/2025 6:45 EDT Treatment [facility] [place] [address] [place], [place] [id number] Carlota Jin MD 1 [facility], [facility] 2 [place] [phone] 01/29/2025 6:45 EDT Treatment [facility] [place] [address] [place], [place] [id number] Carlota Jin MD 1 [facility], [facility] 2 [place] [phone] 01/31/2025 6:45 EDT Treatment [facility] [place] [address] [place], [place] [id number] Carlota Jin MD 1 [facility], [facility] 2 [place] [phone] 02/02/2025 6:45 EDT Treatment [facility] [place] [address] [place], [place] [id number] Carlota Jin MD 1 [facility], [address] [phone] 02/05/2025 6:45 EDT Treatment [facility] [place] [address] [place], [place] [id number] Carlota Jin MD 1 [facility], [address] [phone] 02/07/2025 6:45 EDT Treatment [facility] [place] [address] [place], [place] [id number] Carlota Jin MD 1 [facility], [facility] 2 [place] [phone] 02/09/2025 6:45 EDT Treatment [facility] [place] [address] [place], [place] [id number] Carlota Jin MD 1 [facility], [facility] 2 [place] [phone] 02/12/2025 6:45 EDT Treatment [facility] [place] [address] [place], [place] [id number] Carlota Jin MD [address] [phone] 02/14/2025 6:45 EDT Treatment [facility] [place] [address] [place], [place] [phone] Carlota Jin MD [address] [place] [phone] 02/16/2025 6:45 EDT Treatment [facility] [place] [address] [place], [place] [id number] Carlota Jin MD [address] [place] [phone] 02/19/2025 6:45 EDT Treatment [facility] [place] [address] [place], [place] [phone] Carlota Jin MD [address] [place] [phone] 02/21/2025 6:45 EDT Treatment [facility] [place] [address] [place], [place] [id number] Carlota Jin MD [address] [place] [phone] documented as of this encounter Visit Diagnoses Not on filedocumented in this encounter Care Teams Assembler Corncob Pipes Relationship Specialty Start Date End Date Villegas, [place], EMERGENCY MANAGEMENT SPECIALIST [address] [place] [address] PCP - General 10/12/16 07/06/23 documented as of this encounter
--- OUTSIDE RECORDS SUMMARY | 2024-12-05 12:25 | XMS_ITS | Encounter Summary ---
Author Organization [facility] Address [address] [place] [address] Care Team Providers Care Radiation Therapy Technologist Name Role Phone Adeola Villegas APRN Primary Care Provider [phone] Encounter Details Date Type Department Care Team (Late st Contact Info) Description 03/26/2023 Documentation Visit [facility] [address] [place], [place] [id number] Melissa Crespo, RN Social History Tobacco Use [...] 12/06/2024 6:45 EST Treatment [facility] [address] [place] [address] Carlota Jin MD 1 [facility] Level [address] [place] [address] 12/08/2024 6:45 EST Treatment [facility] [address] [place] [address] Carlota Jin MD 1 [facility], [facility] 2 [place] [phone] 12/11/2024 6:45 EST Treatment [facility] [place] [address] [place], [place] [address] Carlota Jin MD 1 [facility], [facility] 2 [place] [phone] 12/13/2024 6:45 EST Treatment [facility] [place] [address] [place], [place] [id number] Carlota Jin MD 1 [facility], [facility] 2 [place] [phone] 12/15/2024 6:45 EST Treatment [facility] [place] [address] [place], [place] [id number] Carlota Jin MD 1 [facility], [facility] 2 [place] [phone] 12/18/2024 6:45 EST Treatment [facility] [address] [place] [address] Carlota Jin MD 1 [facility], [facility] 2 [place] [phone] 12/20/2024 6:45 EST Treatment [facility] [place] [address] [place], [place] [id number] Carlota Jin MD 1 [facility], [facility] 2 [place] [phone] 12/22/2024 6:45 EST Treatment [facility] [place] [address] [place], [place] [id number] Carlota Jin MD 1 [facility], [facility] 2 [place] [phone] 12/25/2024 6:45 EST Treatment [facility] [place] [address] [place], [place] [id number] Carlota Jin MD 1 [facility], [facility] 2 [place] [phone] 12/27/2024 6:45 EST Treatment [facility] [place] [address] [place], [place] [id number] Carlota Jin MD 1 [facility], [facility] 2 [place] [phone] 12/29/2024 6:45 EST Treatment [facility] [place] [address] [place], [place] [id number] Carlota Jin MD 1 [facility], [facility] 2 [place] [phone] 01/01/2025 6:45 EDT Treatment [facility] [place] [address] [place], [place] [id number] Carlota Jin MD 1 [facility], [facility] 2 [place] [phone] 01/03/2025 6:45 EDT Treatment [facility] [place] [address] [place], [place] [phone] Carlota Jin MD 1 [facility], Level [address] [place] [phone] 01/05/2025 6:45 EDT Treatment [facility] - [place] [address] [place], [place] [address] Carlota Jin MD 1 [facility], [facility] 2 [place] [phone] 01/08/2025 6:45 EDT Treatment [facility] [place] [address] [place], [place] [id number] Carlota Jin MD 1 [facility], [facility] 2 [place] [phone] 01/10/2025 6:45 EDT Treatment [facility] [place] [address] [place] [address] Carlota Jin MD 1 [facility], [facility] 2 [place] [phone] 01/12/2025 6:45 EDT Treatment [facility] [address] [place] [address] Carlota Jin MD 1 [facility], [facility] 2 [place] [phone] 01/15/2025 6:45 EDT Treatment [facility] [address] [place], [place] [id number] Carlota Jin MD 1 [facility], [facility] 2 [place] [phone] 01/17/2025 6:45 EDT Treatment [facility] - [place] [address] [place], [place] [id number] Carlota Jin MD 1 [facility], [facility] 2 [place] [phone] 01/19/2025 6:45 EDT Treatment [facility] - [place] [address] [place], [place] [id number] Carlota Jin MD 1 [facility], [facility] 2 [place] [phone] 01/22/2025 6:45 EDT Treatment [facility] [place] [address] [place], [place] [phone] Carlota Jin MD [address] [place] [address], [facility] 2 [place] [phone] 01/24/2025 6:45 EDT Treatment [facility] - [place] [address] [place], [place] [id number] Carlota Jin MD 1 [facility], [facility] 2 [place] [phone] 01/26/2025 6:45 EDT Treatment [facility] [place] [address] [place], [place] [id number] Carlota Jin MD 1 [facility], [facility] 2 [place] [phone] 01/29/2025 6:45 EDT Treatment [facility] - [place] [address] [place], [place] [id number] Carlota Jin MD 1 [facility], [facility] 2 [place] [phone] 01/31/2025 6:45 EDT Treatment [facility] [place] [address] [place], [place] [phone] Carlota Jin MD 1 [facility], [facility] 2 [place] [phone] 02/02/2025 6:45 EDT Treatment [facility] [place] [address] [place], [place] [id number] Carlota Jin MD 1 [facility], [address] [phone] 02/05/2025 6:45 EDT Treatment [facility] [place] [address] [place], [place] [id number] Carlota Jin MD 1 [facility], [address] [phone] 02/07/2025 6:45 EDT Treatment [facility] [place] [address] [place], [place] [id number] Carlota Jin MD 1 [facility], [facility] 2 [place] [phone] 02/09/2025 6:45 EDT Treatment [facility] [place] [address] [place], [place] [id number] Carlota Jin MD 1 [facility], [facility] 2 [place] [phone] 02/12/2025 6:45 EDT Treatment [facility] [place] [address] [place], [place] [id number] Carlota Jin MD [address] [phone] 02/14/2025 6:45 EDT Treatment [facility] [place] [address] [place], [place] [phone] Carlota Jin MD [address] [place] [phone] 02/16/2025 6:45 EDT Treatment [facility] [place] [address] [place], [place] [id number] Carlota Jin MD [address] [place] [phone] 02/19/2025 6:45 EDT Treatment [facility] - [place] [address] [place], [place] [phone] Carlota Jin MD [address] [place] [phone] 02/21/2025 6:45 EDT Treatment [facility] [place] [address] [place], [place] [phone] Carlota Jin MD [address] [place] [phone] documented as of this encounter Visit Diagnoses Not on filedocumented in this encounter Care Teams Radiation Therapy Technologist Relationship Specialty Start Date End Date Villegas, [place], HEAD BU[employer]ER [employer] [address] [place] [address] PCP - General 10/12/16 07/06/23 documented as of this encounter
--- OUTSIDE RECORDS SUMMARY | 2024-12-05 12:25 | XMS_ITS | Encounter Summary ---
Author Organization [facility] Address [address] [place] [address] Care Team Providers Care Metal Spraying Machine Operator Name Role Phone Adeola Villegas APRN Primary Care Provider [phone] Encounter Details Date Type Department Care Team (Late st Contact Info) Description 03/22/2023 Documentation Visit [facility] [address] [place], [place] [phone] Melissa Crespo, RN Social History Tobacco Use [...] EST Treatment [facility] [address] [place] [id number] Carlota Jin MD 1 [facility], Level [address] [place] [phone] 12/08/2024 6:45 EST Treatment [facility] [address] [place] [address]85 Carlota Jin MD 1 [facility], [facility] 2 [place] [phone] 12/11/2024 6:45 EST Treatment [facility] [place] [address] [place], [place] [address] Carlota Jin MD 1 [facility], [facility] 2 [place] [phone] 12/13/2024 6:45 EST Treatment [facility] - [place] [address] [place], [place] [phone] Carlota Jin MD 1 [facility], [facility] 2 [place] [phone] 12/15/2024 6:45 EST Treatment [facility] [place] [address] [place], [place] [id number] Carlota Jin MD 1 [facility], [facility] 2 [place] [phone] 12/18/2024 6:45 EST Treatment [facility] [address] [place] [address] Carlota Jin MD 1 [facility], [facility] 2 [place] [phone] 12/20/2024 6:45 EST Treatment [facility] [place] [address] [place], [place] [id number] Carlota Jin MD 1 [facility], [facility] 2 [place] [phone] 12/22/2024 6:45 EST Treatment [facility] [place] [address] [place], [place] [id number] Carlota Jin MD 1 [facility], [facility] 2 [place] [phone] 12/25/2024 6:45 EST Treatment [facility] [place] [address] [place], [place] [id number] Carlota Jin MD 1 [facility], [facility] 2 [place] [phone] 12/27/2024 6:45 EST Treatment [facility] [place] [address] [place], [place] [phone] Carlota Jin MD 1 [facility], [facility] 2 [place] [phone] 12/29/2024 6:45 EST Treatment [facility] - [place] [address] [place], [place] [id number] Carlota Jin MD 1 [facility], [facility] 2 [place] [phone] 01/01/2025 6:45 EDT Treatment [facility] [place] [address] [place], [place] [id number] Carlota Jin MD 1 [facility], [facility] 2 [place] [phone] 01/03/2025 6:45 EDT Treatment [facility] - [place] [address] [place], [place] [id number] Carlota Jin MD 1 [facility], Level [address] [place] [phone] 01/05/2025 6:45 EDT Treatment [facility] - [place] [address] [place], [place] [address] Carlota Jin MD 1 [facility], [facility] 2 [place] [phone] 01/08/2025 6:45 EDT Treatment [facility] - [place] [address] [place], [place] [id number] Carlota Jin MD 1 [facility], [facility] 2 [place] [phone] 01/10/2025 6:45 EDT Treatment [facility] [place] [address] [place] [address] Carlota Jin MD 1 [facility], [facility] 2 [place] [phone] 01/12/2025 6:45 EDT Treatment [facility] [address] [place] [address] Carlota Jin MD 1 [facility], [facility] 2 [place] [phone] 01/15/2025 6:45 EDT Treatment [facility] [address] [place], [place] [id number] Carlota Jin MD 1 [facility], [facility] 2 [place] [phone] 01/17/2025 6:45 EDT Treatment [facility] - [place] [address] [place], [place] [id number] Carlota Jin MD 1 [facility], [facility] 2 [place] [phone] 01/19/2025 6:45 EDT Treatment [facility] - [place] [address] [place], [place] [id number] Carlota Jin MD 1 [facility], [facility] 2 [place] [phone] 01/22/2025 6:45 EDT Treatment [facility] - [place] [address] [place], [place] [phone] Carlota Jni MD [address] [place] [address], [facility] 2 [place] [phone] 01/24/2025 6:45 EDT Treatment [facility] - [place] [address] [place], [place] [id number] Carlota Jin MD 1 [facility], [facility] 2 [place] [phone] 01/26/2025 6:45 EDT Treatment [facility] [place] [address] [place], [place] [id number] Carlota Jin MD 1 [facility], [facility] 2 [place] [phone] 01/29/2025 6:45 EDT Treatment [facility] - [place] [address] [place], [place] [id number] Carlota Jin MD 1 [facility], [facility] 2 [place] [phone] 01/31/2025 6:45 EDT Treatment [facility] [place] [address] [place], [place] [id number] Carlota Jin MD 1 [facility], [facility] 2 [place] [phone] 02/02/2025 6:45 EDT Treatment [facility] [place] [address] [place], [place] [id number] Carlota Jin MD 1 [facility], [address] [phone] 02/05/2025 6:45 EDT Treatment [facility] - [place] [address] [place], [place] [id number] Carlota Jin MD 1 [facility], [address] [phone] 02/07/2025 6:45 EDT Treatment [facility] [place] [address] [place], [place] [id number] Carlota Jin MD 1 [facility], [facility] 2 [place] [phone] 02/09/2025 6:45 EDT Treatment [facility] - [place] [address] [place], [place] [id number] Carlota Jin MD 1 [facility], [facility] 2 [place] [phone] 02/12/2025 6:45 EDT Treatment [facility] - [place] [address] [place], [place] [id number] Carlota Jin MD [address] [phone] 02/14/2025 6:45 EDT Treatment [facility] - [place] [address] [place], [place] [id number] Carlota Jin MD [address] [place] [phone] 02/16/2025 6:45 EDT Treatment [facility] - [place] [address] [place], [place] [id number] Carlota Jin MD [address] [place] [phone] 02/19/2025 6:45 EDT Treatment [facility] - [place] [address] [place], [place] [id number] Carlota Jin MD [address] [place] [phone] 02/21/2025 6:45 EDT Treatment [facility] - [place] [address] [place], [place] [phone] Carlota Jin MD [address] [place] [phone] documented as of this encounter Visit Diagnoses Not on filedocumented in this encounter Care Teams Metal Spraying Machine Operator Relationship Specialty Start Date End Date Villegas, [place], PHARMACY TECH CUSTOMER SERVICE [address] [place] [address] PCP - General 10/12/16 07/06/23 documented as of this encounter
--- OUTSIDE RECORDS SUMMARY | 2024-12-05 12:25 | XMS_ITS | Encounter Summary ---
Author Organization [facility] Address [address] [place] [address] Care Team Providers Care Expediter Service Order Name Role Phone Adeola Villegas APRN Primary Care Provider [phone] Encounter Details Date Type Department Care Team (Late st Contact Info) Description 03/30/2023 Documentation Visit [facility] [place] [address] [place] [id number] Shelley Eden, RD [address] [place] [address] Social History Tobacco Use Types Packs/Day Years [...] [facility] [place] [address] [place] [id number] Carlota Jin MD 1 [facility], Level [address] [place] [phone] 12/08/2024 6:45 EST Treatment [facility] [address] [place] [id number] Carlota Jin MD 1 [facility] 2 [place] [phone] 12/11/2024 6:45 EST Treatment [facility] [place] [address] [place], [place] [id number] Carlota Jin MD 1 [facility] 2 [place] [phone] 12/13/2024 6:45 EST Treatment [facility] [place] [address] [place], [place] [id number] Carlota Jin MD 1 [facility], [facility] 2 [place] [phone] 12/15/2024 6:45 EST Treatment [facility] [place] [address] [place] [address] Carlota Jin MD 1 [facility], [facility] 2 [place] [phone] 12/18/2024 6:45 EST Treatment [facility] [place] [address] [place], [place] [id number] Carlota Jin MD 1 [facility], [facility] 2 [place] [phone] 12/20/2024 6:45 EST Treatment [facility] [place] [address] [place], [place] [id number] Carlota Jin MD 1 [facility], [facility] 2 [place] [phone] 12/22/2024 6:45 EST Treatment [facility] [place] [address] [place], [place] [id number] Carlota Jin MD 1 [facility], [facility] 2 [place] [phone] 12/25/2024 6:45 EST Treatment [facility] [place] [address] [place], [place] [id number] Carlota Jin MD 1 [facility], [facility] 2 [place] [phone] 12/27/2024 6:45 EST Treatment [facility] [address] [place], [place] [id number] Carlota Jin MD [address] [place] [address], [facility] [address] [place] [phone] 12/29/2024 6:45 EST Treatment [facility] [address] [place], [place] [id number] Carlota Jin MD 1 [facility], [facility] 2 [place] [phone] 01/01/2025 6:45 EDT Treatment [facility] [place] [address] [place], [place] [id number] Carlota Jin MD 1 [facility], [facility] 2 [place] [phone] 01/03/2025 6:45 EDT Treatment [facility] [place] [address] [place], [place] [id number] Carlota Jin MD 1 [facility], [facility] 2 [place] [phone] 01/05/2025 6:45 EDT Treatment [facility] [place] [address] [place], [place] [id number] Carlota Jin MD 1 [facility], [facility] 2 [place] [phone] 01/08/2025 6:45 EDT Treatment [facility] [place] [address] [place], [place] [id number] Carlota Jin MD 1 [facility], [address] [phone] 01/10/2025 6:45 EDT Treatment [facility] [place] [address] [place], [place] [id number] Carlota Jin MD 1 [facility], [address] [phone] 01/12/2025 6:45 EDT Treatment [facility] [place] [address] [place], [place] [id number] Carlota Jin MD 1 [facility], [facility] 2 [place] [phone] 01/15/2025 6:45 EDT Treatment [facility] [place] [address] [place], [place] [id number] Carlota Jin MD 1 [facility], [facility] 2 [place] [phone] 01/17/2025 6:45 EDT Treatment [facility] [place] [address] [place], [place] [id number] Carlota Jin MD 1 [facility], [facility] 2 [place] [phone] 01/19/2025 6:45 EDT Treatment [facility] - [place] [address] [place], [place] [id number] Carlota Jin MD 1 [facility], [facility] 2 [place] [phone] 01/22/2025 6:45 EDT Treatment [facility] - [place] [address] [place], [place] [address] Carlota Jin MD 1 [facility], [address] [phone] 01/24/2025 6:45 EDT Treatment [facility] [place] [address] [place], [place] [id number] Carlota Jin MD 1 [facility], [facility] 2 [place] [phone] 01/26/2025 6:45 EDT Treatment [facility] [place] [address] [place], [place] [id number] Carlota Jin MD 1 [facility], [facility] 2 [place] [phone] 01/29/2025 6:45 EDT Treatment [facility] [place] [address] [place], [place] [address] Carlota Jin MD 1 [facility], [facility] 2 [place] [phone] 01/31/2025 6:45 EDT Treatment [facility] - [place] [address] [place] [address] Carlota Jin MD 1 [facility], [address] [phone] 02/02/2025 6:45 EDT Treatment [facility] [place] [address] [place], [place] [address] Carlota Jin MD 1 [facility], [address] [phone] 02/05/2025 6:45 EDT Treatment [facility] [place] [address] [place] [address] Carlota Jin MD 1 [facility], [address] [phone] 02/07/2025 6:45 EDT Treatment [facility] - [place] [address] [place], [place] [id number] Carlota Jin MD [address] [phone] 02/09/2025 6:45 EDT Treatment [facility] - [place] [address] [place], [place] [id number] Carlota Jin MD 1 [facility], [facility] 2 [place] [phone] 02/12/2025 6:45 EDT Treatment [facility] - [place] [address] [place], [place] [id number] Carlota Jin MD 1 [facility], [facility] 2 [place] [phone] 02/14/2025 6:45 EDT Treatment [facility] - [place] [address] [place], [place] [id number] Carlota Jin MD 1 [facility], [address] [phone] 02/16/2025 6:45 EDT Treatment [facility] [place] [address] [place], [place] [id number] Carlota Jin MD 1 [facility], [address] [phone] 02/19/2025 6:45 EDT Treatment [facility] - [place] [address] [place], [place] [id number] Carlota Jin MD 1 [facility], [address] [phone] 02/21/2025 6:45 EDT Treatment [facility] [place] [address] [place], [place] [id number] Carlota Jin MD 1 [facility], [facility] 2 [place] [phone] documented as of this encounter Visit Diagnoses Not on filedocumented in this encounter Care Teams Expediter Service Order Relationship Specialty Start Date End Date Adeola Villegas APRN [address] [place] [address] PCP - General 10/12/16 07/06/23 documented as of this encounter
--- OUTSIDE RECORDS SUMMARY | 2024-12-05 12:26 | XMS_ITS | Encounter Summary ---
Author Organization [facility] Address [address] [place] [address] Care Team Providers Care Stemmer Machine Name Role Phone Adeola Villegas APRN Primary Care Provider [phone] Encounter Details Date Type Department Care Team (Late st Contact Info) Description 03/11/2023 Documentation Visit [facility] [address] [place] [address] Shelley Eden, RD [address] [place] [address] Social History Tobacco Use Types Packs/Day Years [...] Progress Notes * Shelley Eden RD - 03/11/2023 1014 EDT Dialysis Dietitian's Monthly Assessment Met with patient on 03/10/23 Family/caregivers or others present: lives with his Information obtained from: patient Recent Hospitalizations: none Subjective: Xander often is very sleepy and difficult to talk to at HD in addition he is hard of hearing. He said he has been working on building their house. He often feels tired. We discussed high k and phos level . Noted he often grabs food out and about and has not been taking the renvela consistently. He also likes to snack on yogurt. Offered to talk with his who cooks the meals but he felt like this was not necessary that he just needed to be better about his binders . Appetite: Fair-good Appetite scale (0-10): No number given Gastrointestinal: No issues identified Skin integrity: Intact Diabetes: Yes does not check on bld sugars Diabetes Management: Self Monitoring of Blood Glucose Diet Recall: B skipped Jeferson Juan beef kabobs Fluid: Water, Coffee, Milk, Juice Alcohol: will need to f/u Prescribed Weight:87 Post-Dialytic Weight: 88 - 03/01/2023 03/03/2023 03/05/2023 03/08/2023 03/10/2023 ( Kg ) 88 87.1 86.9 87.8 88 UFR: - 03/01/2023 03/03/2023 03/05/2023 03/08/2023 03/10/2023 mL/Kg/hr 9.07 8.58 7.42 7.63 10.85 URR: 72.857 (Calculated from:; BUN Pre-Dialysis: 70 mg/dL at 02/22/2023 12:54; BUN Post-Dialysis: 19 mg/dL at 02/22/2023 12:54) Kt/V: 1.58 (Calculated from:; BUN Pre-Dialysis: 70 mg/dL at 02/22/2023 12:54; BUN Post-Dialysis: 19 mg/dL at 02/22/2023 12:54; Pre-Treatment Weight (kg): 91.4 at 02/22/2023 7:06; Post-Treatment Weight (kg): 87.1 at 02/22/2023 11:23; Duration of Treatment (minutes): 244 minutes at 02/22/2023 11:23) PCR: 1.29 (Calculated from:; BUN Pre-Dialysis: 70 mg/dL at 02/22/2023 12:54; BUN Post-Dialysis: 19 mg/dL at 02/22/2023 12:54; Pre-Treatment Weight (kg): 91.4 at 02/22/2023 7:06; Post-Treatment Weight (kg):87.1 at 02/22/2023 11:23; Duration of Treatment (minutes): 244 minutes at 02/22/2023 11:23; Age: 57 years) Pertinent Labs include: Lab Results Component Value Date LABALBU 3.4 02/22/2023 LABALBU 3.5 01/25/2023 Lab Results Component Value Date BUNPRE 70 (H) 02/22/2023 BUNPRE 70 (H) 02/22/2023 NA 133 (L) 02/22/2023 NA 134 (L) 01/25/2023 K 6.2 (H) 02/22/2023 K 5.2 (H) 01/25/2023 CL 95 (L) 02/22/2023 CL 98 01/25/2023 CO2 22 02/22/2023 CO2 25 01/25/2023 MG 2.8 02/22/2023 MG 2.8 01/25/2023 CALCIUM 8.6 02/22/2023 CALCIUM 9.0 01/25/2023 CALCCA 9.1 02/22/2023 CALCCA 9.4 01/25/2023 PHOS 8.8 (H) 02/22/2023 PHOS 7.1 (H) 01/25/2023 ALKPHOS 94 02/22/2023 ALKPHOS 85 01/25/2023 PTH 239 (H) 01/25/2023 PTH 341 (H) 11/30/2022 PLT 247 03/10/2023 PLT 245 03/03/2023 MCV 97 (H) 03/10/2023 MCV 95 03/03/2023 [id number] 11/16/2022 VITD 27 (L) 11/16/2022 FOLATE 17.3 11/16/2022 Protein/calorie supplements: Nepro on HD days Using protein powder at home (orgain) Renal/other vitamins: cholecalciferol (Vitamin D3) - 2000 IU daily MULTIVITAMIN ORAL Herbal/OTC supplements: None reported CKD/MBD medications: sevelamer hydrochloride - 2 with meals - has not been consistent Recmd to add tums with snacks and larger meals Other Medications Relevant to Nutrition: atorvastatin - 40 mg furosemide - 20 mg sevelamer hydrochloride - 800 mg LEVEMIR FLEXPEN SUBQ Assessment Nutrition status / Adequacy of intake: Xander seems to be eating well at least 2 protein servings daily. He is taking nepro on HD to help improve his albumin. His wt has ranged from 86-88 kg since starting HD and his current BMI is at 28. He is well nourished in appearance and fairly highly functioning Weight/Volume status: fluid gains 1.4-6.0 UFR 8-12 Electrolytes: High k level - discussed high k foods to limit - detailed list provided Mg level WNL Na low - suspect r/t high fluid gains Mineral Bone Disease: Ca level normal Phos high - encouraged to time binders with meals, revd high phos foods to limit - phos education sheet provided PTH WNL - no calcitriol Vitamin Status: B12 and folate WNL - will need to f/u on him getting started on renal vitamin- currently on MV D25 level low -on 2000 IU D3 Diabetes management: on insulin but not checking regularly Education Materials provided: Nutrition Lab Report-given monthly Potassium education- given again on 03/10 Phosphorus education- given again on 03/10 Assessment of Understanding: needs reinforcement Medical Nutrition Therapy Plan and Recommendation 1. Revd high phos and K foods to limit - discussed lower k alternatives and timing of phos binders - info sheets given 2. Continue nepro and protein powder at home to improve albumin 3. Will need to change to renal vitamin 4. Continue Vitamin D3 supplement 5. Consider adding tums at HD to help with phos binding Shelley Eden RD, CD documented in this encounter Plan of Treatment Upcoming Encounters Date Type Department Care Team (Late st Contact Info) Description 12/06/2024 6:45 EST Treatment [facility] [address] [place], [place] [id number] Carlota Jin MD [address] [place] [address], [facility] [address] [place] [phone] 12/08/2024 6:45 EST Treatment [facility] [place] [address] [place], [place] [id number] Carlota Jin MD [address] [place] [address], [facility] [address] [place] [phone] 12/11/2024 6:45 EST Treatment [facility] - [place] [address] [place], [place] [id number] Carlota Jin MD 1 [facility], [facility] [address] [place] [phone] 12/13/2024 6:45 EST Treatment [facility] [place] [address] [place], [place] [id number] Carlota Jin MD 1 [facility], [facility] [address] [place] [phone] 12/15/2024 6:45 EST Treatment [facility] [place] [address] [place], [place] [id number] Carlota Jin MD 1 [facility], [facility] [address] [place] [phone] 12/18/2024 6:45 EST Treatment [facility] [place] [address] [place], [place] [id number] Carlota Jin MD 1 [facility], [facility] [address] [place] [phone] 12/20/2024 6:45 EST Treatment [facility] [place] [address] [place], [place] [id number] Carlota Jin MD 1 [facility], [facility] [address] [place] [phone] 12/22/2024 6:45 EST Treatment [facility] [place] [address] [place], [place] [id number] Carlota Jin MD [facility] Level [address] [place] [phone] 12/25/2024 6:45 EST Treatment [facility] [place] [address] [place], [place] [id number] Carlota Jin MD 1 [facility], [facility] [address] [place] [phone] 12/27/2024 6:45 EST Treatment [facility] [address] [place], [place] [id number] Carlota Jin MD 1 [facility], [facility] [address] [place] [phone] 12/29/2024 6:45 EST Treatment [facility] [address] [place] [address] Carlota Jin MD 1 [facility], [facility] [address] [place] [phone] 01/01/2025 6:45 EDT Treatment [facility] [address] [place] [address] Carlota Jin MD 1 [facility], [facility] [address] [place] [phone] 01/03/2025 6:45 EDT Treatment [facility] [address] [place], [place] [id number] Carlota Jin MD 1 [facility], [facility] [address] [place] [phone] 01/05/2025 6:45 EDT Treatment [facility] [place] [address] [place], [place] [id number] Carlota Jin MD 1 [facility], [facility] [address] [place] [phone] 01/08/2025 6:45 EDT Treatment [facility] [place] [address] [place], [place] [id number] Carlota Jin MD 1 [facility], [facility] [address] [place] [phone] 01/10/2025 6:45 EDT Treatment [facility] [place] [address] [place], [place] [address] Carlota Jin MD [address] [place] [address], [facility] [address] [place] [phone] 01/12/2025 6:45 EDT Treatment [facility] [place] [address] [place], [place] [id number] Carlota Jin MD [address] [place] [address], [facility] [address] [place] [phone] 01/15/2025 6:45 EDT Treatment [facility] [place] [address] [place], [place] [id number] Carlota Jin MD 1 [facility], [facility] [address] [place] [phone] 01/17/2025 6:45 EDT Treatment [facility] [place] [address] [place], [place] [id number] Carlota Jin MD 1 [facility], [facility] [address] [place] [phone] 01/19/2025 6:45 EDT Treatment [facility] [place] [address] [place], [place] [address] Carlota Jin MD 1 [facility], [facility] [address] [place] [phone] 01/22/2025 6:45 EDT Treatment [facility] [place] [address] [place], [place] [id number] Carlota Jin MD 1 [facility], [address] [phone] 01/24/2025 6:45 EDT Treatment [facility] [place] [address] [place], [place] [id number] Carlota Jin MD 1 [facility], [facility] [address] [place] [phone] 01/26/2025 6:45 EDT Treatment [facility] [place] [address] [place], [place] [address] Carlota Jin MD 1 [facility], [facility] [address] [place] [phone] 01/29/2025 6:45 EDT Treatment [facility] [place] [address] [place], [place] [id number] Carlota Jin MD 1 [facility], [facility] [address] [place] [phone] 01/31/2025 6:45 EDT Treatment [facility] [place] [address] [place], [place] [id number] Carlota Jin MD 1 [facility], [facility] [address] [place] [phone] 02/02/2025 6:45 EDT Treatment [facility] [place] [address] [place], [place] [id number] Carlota Jin MD 1 [facility], [facility] [address] [place] [phone] 02/05/2025 6:45 EDT Treatment [facility] - [place] [address] [place], [place] [address]28015 Carlota Jin MD 1 [facility], [address] [phone] 02/07/2025 6:45 EDT Treatment [facility] [place] [address] [place], [place] [address] Carlota Jin MD 1 [facility], [facility] [address] [place] [phone] 02/09/2025 6:45 EDT Treatment [facility] [place] [address] [place], [place] [id number] Carlota Jin MD 1 [facility], [facility] [address] [place] [phone] 02/12/2025 6:45 EDT Treatment [facility] [place] [address] [place], [place] [address] Carlota Jin MD 1 [facility], [address] [phone] 02/14/2025 6:45 EDT Treatment [facility] - [place] [address] [place], [place] 100[address] Carlota Jin MD [address] [place] [address], [address] [phone] 02/16/2025 6:45 EDT Treatment [facility] - [place] [address] [place], [place] [id number] Carlota Jin MD [address] [place] [address], [address] [phone] 02/19/2025 6:45 EDT Treatment [facility] [address] [place], [place] [id number] Carlota Jin MD [address] [place] [address], [address] [phone] 02/21/2025 6:45 EDT Treatment [facility] [place] [address] [place], [place] [id number] Carlota Jin MD [address] [place] [phone] documented as of this encounter Visit Diagnoses Not on filedocumented in this encounter Care Teams Stemmer Machine Relationship Specialty Start Date End Date Adeola Villegas APRN Mohit [address] [facility] [address] [place], [place] [address] PCP - General 10/12/16 07/06/23 documented as of this encounter
--- OUTSIDE RECORDS SUMMARY | 2024-12-05 12:26 | XMS_ITS | Encounter Summary ---
Author Organization [facility] Address [address] [place] [address] Care Team Providers Care Head Of Digital Name Role Phone Adeola Villegas APRN Primary Care Provider [phone] Encounter Details Date Type Department Care Team (Late st Contact Info) Description 03/17/2023 7:[address] [facility] [address] [place], [place] [id number] Carlota Jin MD 1 [facility], Level 2 [place] [address] ESRD (end stage renal disease) ([facility]) (Primary Dx); Abnormal albumin Social History [...] - Temperature - - Respiratory Rate 16 03/17/2023 1107 EDT Oxygen Saturation - - Inhaled Oxygen Concentration - - Weight 90.2 kg (198 lb 13.7 oz) 03/17/2023 0655 EDT Height - - Body Mass Index 28.94 01/25/2023 0751 EDT documented in this encounter Miscellaneous Notes * Flowsheet Note - Yoanna Degroot RN - 03/17/2023 1209 EDT 03/17/23 1107 Post-Hemodialysis Assessment Total Blood Processed (L) 87.99 Liters On Line Clearance: spKt/V 1.4 spKt/V Dialyzer Clearance Lightly streaked Treatment UFR (ml:kg:hr) 7.65 ml:kg:hr Critline refill Not done Fluid Removed (L) 2.7 L Post-Dialysis Scale Weight 87.5 kg (192 lb 14.4 oz) Wheelchair Weight 0 kg (0 lb) Prosthesis Weight 0 kg (0 lb) Post-Treatment Weight (kg) 87.5 Treatment Weight Change (kg) 2.7 kg Day Target Weight (kg) 88 Post Sitting/Lying BP 121/75 Post Sitting/Lying pulse 69 Post Standing BP 110/67 Post Standing Pulse 72 Temp 36.3 ??C (97.3 ??F) Temp src Temporal Resp 16 Post access assessment AVF/AFG Hemostasis achieved Yes Note 10 min hold Orientation Alert and Oriented x3 Yes Cooperative Yes Disoriented No Discharge Ambulation Methods Ambulatory without assistance Wrap up items Patient Response to Treatment pt tolerated tx well Comments vssa. avf wnl. * Dialysis Rounding - Skye Gomez NP - 03/17/2023 0715 EDT Dialysis Provider's Routine Assessment Gerson Bruner was seen and examined as appropriate during Dialysis. Pertinent lab results were reviewed. Changes since last visit: None Changes to current prescriptions/orders: None Skye Gomez NP documented in this encounter Plan of Treatment Upcoming Encounters Date Type Department Care Team (Late st Contact Info) Description 12/06/2024 6:45 EST Treatment [facility] [place] [address] [place] [address] Carlota Jin MD 1 [facility], Level [address] [place] [phone] 12/08/2024 6:45 EST Treatment [facility] [place] [address] [place], [place] [phone] Carlota Jin MD 1 [facility], [facility] 2 [place] [phone] 12/11/2024 6:45 EST Treatment [facility] [place] [address] [place] [address] Carlota Jin MD 1 [facility], [facility] 2 [place] [phone] 12/13/2024 6:45 EST Treatment [facility] [place] [address] [place], [place] [address] [phone] Carlota Jin MD 1 [facility], [facility] 2 [place] [phone] 12/15/2024 6:45 EST Treatment [facility] [place] [address] [place] [address] Carlota Jin MD 1 [facility] 2 [place] [phone] 12/18/2024 6:45 EST Treatment [facility] [place] [address] [place], [place] [phone] Carlota Jin MD 1 [facility], [facility] 2 [place] [phone] 12/20/2024 6:45 EST Treatment [facility] [place] [address] [place], [place] [address] Carlota Jin MD 1 [facility], [address] [phone] 12/22/2024 6:45 EST Treatment [facility] [place] [address] [place] [address] Carlota Jin MD 1 [facility], [address] [phone] 12/25/2024 6:45 EST Treatment [facility] [place] [address] [place], [place] [id number] Carlota Jin MD 1 [facility], [address] [phone] 12/27/2024 6:45 EST Treatment [facility] [place] [address] [place], [place] [address] Carlota Jin MD 1 [facility], [address] [phone] 12/29/2024 6:45 EST Treatment [facility] [address] [place], [place] [phone] Carlota Jin MD [address] [phone] 01/01/2025 6:45 EDT Treatment [facility] [place] [address] [place], [place] [phone] Carlota Jin MD 1 [facility], [facility] 2 [place] [phone] 01/03/2025 6:45 EDT Treatment [facility] [place] [address] [place], [place] [phone] Carlota Jin MD 1 [facility], [facility] 2 [place] [phone] 01/05/2025 6:45 EDT Treatment [facility] [place] [address] [place], [place] [phone] Carlota Jin MD 1 [facility], [facility] 2 [place] [phone] 01/08/2025 6:45 EDT Treatment [facility] [place] [address] [place] [address] Carlota Jin MD 1 [facility], [facility] 2 [place] [phone] 01/10/2025 6:45 EDT Treatment [facility] [place] [address] [place] [address] Carlota Jin MD 1 [facility], [facility] 2 [place] [phone] 01/12/2025 6:45 EDT Treatment [facility] [place] [address] [place], [place] [phone] Carlota Jin MD 1 [facility], [facility] 2 [place] [phone] 01/15/2025 6:45 EDT Treatment [facility] [place] [address] [place], [place] [address] Carlota Jin MD 1 [facility], [facility] 2 [place] [phone] 01/17/2025 6:45 EDT Treatment [facility] [place] [address] [place], [place] [address] Carlota Jin MD 1 [facility], [facility] 2 [place] [phone] 01/19/2025 6:45 EDT Treatment [facility] [place] [address] [place], [place] [address] Carlota Jin MD 1 [facility], [facility] 2 [place] [phone] 01/22/2025 6:45 EDT Treatment [facility] [place] [address] [place], [place] [address] Carlota Jin MD 1 [facility], [facility] 2 [place] [phone] 01/24/2025 6:45 EDT Treatment [facility] [place] [address] [place], [place] [address] Carlota Jin MD 1 [facility], [facility] 2 [place] [phone] 01/26/2025 6:45 EDT Treatment [facility] [place] [address] [place], [place] [address] Carlota Jin MD 1 [facility], [facility] 2 [place] [phone] 01/29/2025 6:45 EDT Treatment [facility] [place] [address] [place], [place] [address] Carlota Jin MD 1 [facility], [facility] 2 [place] [phone] 01/31/2025 6:45 EDT Treatment [facility] [place] [address] [place], [place] [phone] Carlota Jin MD 1 [facility], [facility] 2 [place] [phone] 02/02/2025 6:45 EDT Treatment [facility] [place] [address] [place], [place] [phone] Carlota Jin MD 1 [facility], [facility] 2 [place] [phone] 02/05/2025 6:45 EDT Treatment [facility] [place] [address] [place] [address] Carlota Jin MD 1 [facility], [facility] 2 [place] [phone] 02/07/2025 6:45 EDT Treatment [facility] [place] [address] [place], [place] [address] Carlota Jin MD 1 [facility], [facility] 2 [place] [phone] 02/09/2025 6:45 EDT Treatment [facility] [place] [address] [place], [place] [phone] Carlota Jin MD 1 [facility], [facility] 2 [place] [phone] 02/12/2025 6:45 EDT Treatment [facility] [place] [address] [place], [place] [phone] Carlota Jin MD [address] [place] [address], [address] [phone] 02/14/2025 6:45 EDT Treatment [facility] [place] [address] [place], [place] [phone] Carlota Jin MD [address] [place] [address], [address] [phone] 02/16/2025 6:45 EDT Treatment [facility] [place] [address] [place], [place] [phone] Carlota Jin MD [address] [place] [address], [facility] 2 [place] [phone] 02/19/2025 6:45 EDT Treatment [facility] [place] [address] [place], [place] [phone] Carlota Jin MD 1 [facility], [facility] 2 [place] [phone] 02/21/2025 6:45 EDT Treatment [facility] [place] [address] [place], [place] [phone] Carlota Jin MD 1 [facility], Level [address] [place] [address] documented as of this encounter Procedures Procedure Name Priority Date/Time Associated Diagnosis Comments COMPLETE BLOOD COUNT Routine 03/17/2023 7:04 EDT ESRD (end stage renal disease) ([facility]) HEMODIALYSIS Routine 03/17/2023 6:55 EDT ESRD (end stage renal disease) ([facility]) documented in this encounter Results * (ABNORMAL) COMPLETE BLOOD COUNT (03/17/2023 7:04 EDT) WBC 8.60 4.00 - 10.40 K/cmm 03/17/2023 21:45 [facility] RBC 3.49(L) 4.36 - 5.78 M/cmm 03/17/2023 21:45 [facility] Hemoglobin 11.3(L) 13.8 - 17.3 g/dL 03/17/2023 21:45 [facility] HCT 33.6(L) 39.5 - 50.2 % 03/17/2023 21:45 [facility] MCV 96(H) 81 - 95 fL 03/17/2023 21:45 [facility] MCH 32.4 27.6 - 33.0 pg 03/17/2023 21:45 [facility] MCHC 33.6 32.8 - 36.4 g/dL 03/17/2023 21:45 [facility] RDW-CV 12.1 <14.2 % 03/17/2023 21:45 [facility] RDW-SD 42.8 <46.0 fl 03/17/2023 21:45 [facility] PLT 264 141 - 377 K/cmm 03/17/2023 21:45 [facility] MPV 11.8 9.5 - 12.7 fL 03/17/2023 21:45 [facility] Blood VENOUS BLOOD / Unknown Venipuncture / Unknown 03/17/2023 7:04 EDT 03/17/2023 7:04 EDT us Carlota Jin MD HEMATOLOGY & PF4 ORDERABL ES Final Result [facility] [address] [place] [address] documented in this encounter Visit Diagnoses Diagnosis ESRD (end stage renal disease) ([facility])- Primary End stage renal disease Abnormal albumin Other nonspecific findings on examination of blood documented in this encounter Administered Medications Inactive Administered Medications - up to 3 most recent administrations Medication Order MAR Action Action Date Dose Rate Site heparin injection 9,000 Units 9,000 Units, intravenous, ONCE IN DIALYSIS, 1 dose, On Wed03/17/23 at 0715, Routine, Dialysis, Now x1 bolus 4500 units to be given at the beginning of dialysis 1500 units/hour to be given over the course of dialysis (9000 units total). Stop 1 hour prior to end of treatment. To be administered per Policy [id number].Indications:ESRD (end stage renal disease) ([facility]) Given 03/17/2023 7:01 EDT 9,000 Units nepro w/ carb steady bolus 237 mL 237 mL (1 Package), oral, ONCE IN DIALYSIS, 1 dose, On Wed03/17/23 at 0715, RoutineIndications:ESRD (end stage renal disease) ([facility]),Abnormal albumin Given 03/17/2023 7:17 EDT 237 mL documented in this encounter Orders Dialysis Count Last Ordered Date First Orde red Date HEMODIALYSIS 1 03/17/2023 documented in this encounter Care Teams Head Of Digital Relationship Specialty Start Date End Date Adeola Villegas APRN [address] [place] [address] PCP - General 10/12/16 07/06/23 documented as of this encounter
--- OUTSIDE RECORDS SUMMARY | 2024-12-05 12:26 | XMS_ITS | Encounter Summary ---
Author Organization [facility] Address [address] [place] [address] Care Team Providers Care Toe Pounder Name Role Phone Adeola Villegas MONA Primary Care Provider [phone] Encounter Details Date Type Department Care Team (Late st Contact Info) Description 03/12/2023 7:[address] [facility] [address] [place] [phone] Carlota Jin MD 1 [facility], Level [address] [place] [address] ESRD (end stage renal disease) ([facility]) (Primary Dx); Anemia of chronic [...] - Temperature - - Respiratory Rate 16 03/12/2023 0745 EDT Oxygen Saturation - - Inhaled Oxygen Concentration - - Weight 91.1 kg (200 lb 13.4 oz) 03/12/2023 0745 EDT Height - - Body Mass Index 29.23 01/25/2023 0751 EDT documented in this encounter Plan of Treatment Upcoming Encounters Date Type Department Care Team (Late st Contact Info) Description 12/06/2024 6:45 EST Treatment [facility] [place] [address] [place], [place] [phone] Carlota Jin MD 1 [facility], [facility] 2 [place] [phone] 12/08/2024 6:45 EST Treatment [facility] [place] [address] [place], [place] [phone] Carlota Jin MD 1 [facility], [facility] 2 [place] [phone] 12/11/2024 6:45 EST Treatment [facility] [place] [address] [place] [address] Carlota Jin MD 1 [facility], [facility] 2 [place] [phone] 12/13/2024 6:45 EST Treatment [facility] [place] [address] [place], [place] [phone] Carlota Jin MD 1 [facility], [facility] 2 [place] [phone] 12/15/2024 6:45 EST [facility] [address] [place], [place] [phone] Carlota Jin MD 1 [facility], [facility] 2 [place] [phone] 12/18/2024 6:45 EST Treatment [facility] [place] [address] [place], [place] [address] Carlota Jin MD 1 [facility], [facility] 2 [place] [phone] 12/20/2024 6:45 EST Treatment [facility] [place] [address] [place] [address] Carlota Jin MD 1 [facility], [address] [phone] 12/22/2024 6:45 EST Treatment [facility] [place] [address] [place], [place] [phone] Carlota Jin MD 1 [facility], [address] [phone] 12/25/2024 6:45 EST Treatment [facility] [place] [address] [place] [address] Carlota Jin MD 1 [facility], [address] [phone] 12/27/2024 6:45 EST Treatment [facility] [address] [place], [place] [address] Carlota Jin MD 1 [facility], [address] [phone] 12/29/2024 6:45 EST Treatment [facility] [place] [address] [place], [place] [phone] Carlota Jin MD 1 [facility], [facility] 2 [place] [phone] 01/01/2025 6:45 EDT Treatment [facility] [place] [address] [place], [place] [phone] Carlota Jin MD 1 [facility], [facility] 2 [place] [phone] 01/03/2025 6:45 EDT Treatment [facility] [place] [address] [place], [place] [phone] Carlota Jin MD 1 [facility], [facility] 2 [place] [phone] 01/05/2025 6:45 EDT Treatment [facility] [place] [address] [place], [place] [phone] Carlota Jin MD 1 [facility], [facility] 2 [place] [phone] 01/08/2025 6:45 EDT Treatment [facility] [place] [address] [place], [place] [phone] Carlota Jin MD 1 [facility], [facility] 2 [place] [phone] 01/10/2025 6:45 EDT [facility] [address] [place], [place] [phone] Carlota Jin MD 1 [facility], [facility] 2 [place] [phone] 01/12/2025 6:45 EDT Treatment [facility] [place] [address] [place], [place] [address] Carlota Jin MD 1 [facility], [facility] 2 [place] [phone] 01/15/2025 6:45 EDT Treatment [facility] [place] [address] [place], [place] [address] Carlota Jin MD 1 [facility], [facility] 2 [place] [phone] 01/17/2025 6:45 EDT Treatment [facility] [place] [address] [place], [place] [phone] Carlota Jin MD 1 [facility], [address] [phone] 01/19/2025 6:45 EDT Treatment [facility] [place] [address] [place], [place] [phone] Carlota Jin MD 1 [facility], [facility] 2 [place] [phone] 01/22/2025 6:45 EDT Treatment [facility] [place] [address] [place], [place] [phone] Carlota Jin MD 1 [facility], [facility] 2 [place] [phone] 01/24/2025 6:45 EDT Treatment [facility] [place] [address] [place], [place] [phone] Carlota [facility] MD 1 [facility] 2 [place] [phone] 01/26/2025 6:45 EDT Treatment [facility] [place] [address] [place], [place] [address] Carlota Jin MD 1 [facility], [facility] 2 [place] [phone] 01/29/2025 6:45 EDT Treatment [facility] [place] [address] [place], [place] [phone] Carlota Jin MD 1 [facility], [facility] 2 [place] [phone] 01/31/2025 6:45 EDT Treatment [facility] [place] [address] [place], [place] [address] Carlota Jin MD 1 [facility], [facility] 2 [place] [phone] 02/02/2025 6:45 EDT Treatment [facility] [place] [address] [place] [address] Carlota Jin MD 1 [facility], [facility] 2 [place] [phone] 02/05/2025 6:45 EDT Treatment [facility] [place] [address] [place], [place] [address] Carlota Jin MD 1 [facility], [facility] 2 [place] [phone] 02/07/2025 6:45 EDT Treatment [facility] [place] [address] [place], [place] [address] Carlota Jin MD 1 [facility], [facility] 2 [place] [phone] 02/09/2025 6:45 EDT Treatment [facility] [place] [address] [place], [place] [phone] Carlota Jin MD [address] [place] [address], [facility] 2 [place] [phone] 02/12/2025 6:45 EDT Treatment [facility] [place] [address] [place], [place] [phone] Carlota Jin MD [address] [place] [address], [address] [phone] 02/14/2025 6:45 EDT Treatment [facility] [place] [address] [place], [place] [phone] Carlota Jin MD [address] [place] [address], [facility] 2 [place] [phone] 02/16/2025 6:45 EDT Treatment [facility] [place] [address] [place], [place] [phone] Carlota Jin MD 1 [facility], [facility] 2 [place] [phone] 02/19/2025 6:45 EDT Treatment [facility] [place] [address] [place], [place] [phone] Carlota Jin MD 1 [facility], Level [address] [place] [phone] 02/21/2025 6:45 EDT Treatment [facility] [place] [address] [place] [address] Carlota Jin MD 1 [facility], Level [address] [place] [address] documented as of this encounter Procedures Procedure Name Priority Date/Time Associated Diagnosis Comments HEMODIALYSIS Routine 03/12/2023 7:45 EDT ESRD (end stage renal disease) ([facility]) documented in this encounter Visit Diagnoses Diagnosis ESRD (end stage renal disease) ([facility])- Primary End stage renal [...] intravenous, ONCE IN DIALYSIS, 1 dose, On Wed03/12/23 at 0815, Routine, DialysisIndications:ESRD (end stage renal disease) ([facility]),Anemia of chronic renal failure, unspecified CKD stage Given 03/12/2023 8:06 EDT 500 Units heparin injection 9,000 Units 9,000 Units, intravenous, ONCE IN DIALYSIS, 1 dose, On Wed03/12/23 at 0815, Routine, Dialysis, Now x1 bolus 4500 units to be given at the beginning of dialysis 1500 units/hour to be given over the course of dialysis (9000 units total). Stop 1 hour prior to end of treatment. To be administered per Policy [id number].Indications:ESRD (end stage renal disease) ([facility]) Given 03/12/2023 7:40 EDT 9,000 Units nepro w/ carb steady bolus 237 mL 237 mL (1 Package), oral, ONCE IN DIALYSIS, 1 dose, On Wed03/12/23 at 0815, RoutineIndications:ESRD (end stage renal disease) ([facility]),Abnormal albumin Given 03/12/2023 8:06 EDT 237 mL documented in this encounter Orders Dialysis Count Last Ordered Date First Orde red Date HEMODIALYSIS 1 03/12/2023 documented in this encounter Care Teams Toe Pounder Relationship Specialty Start Date End Date Adeola Villegas APRN [address] [place] [address] PCP - General 10/12/16 07/06/23 documented as of this encounter
--- OUTSIDE RECORDS SUMMARY | 2024-12-05 12:26 | XMS_ITS | Encounter Summary ---
Author Organization [facility] Address [address] [place] [address] Care Team Providers Care Mutuel Clerk Name Role Phone Adeola Villegas APRN Primary Care Provider [phone] Encounter Details Date Type Department Care Team (Late st Contact Info) Description 03/12/2023 Documentation Visit [facility] [address] [place], [place] [id number] Melissa Crespo, RN Social History Tobacco Use [...] Treatment [facility] [address] [place] [id number] Carlota Jin MD 1 [facility], Level [address] [place] [phone] 12/08/2024 6:45 EST Treatment [facility] [address] [place] [id number] Carlota Jin MD 1 [facility], [facility] 2 [place] [phone] 12/11/2024 6:45 EST Treatment [facility] [place] [address] [place], [place] [address] Carlota Jin MD 1 [facility], [facility] 2 [place] [phone] 12/13/2024 6:45 EST Treatment [facility] [place] [address] [place], [place] [id number] Carlota Jin MD 1 [facility], [facility] 2 [place] [phone] 12/15/2024 6:45 EST Treatment [facility] [place] [address] [place], [place] [id number] Carlota Jin MD 1 [facility], [facility] 2 [place] [phone] 12/18/2024 6:45 EST Treatment [facility] [address] [place] [address] Carlota Jin MD 1 [facility], [facility] 2 [place] [phone] 12/20/2024 6:45 EST Treatment [facility] [place] [address] [place], [place] [id number] Carlota Jin MD 1 [facility], [facility] 2 [place] [phone] 12/22/2024 6:45 EST Treatment [facility] [place] [address] [place], [place] [id number] Carlota Jin MD 1 [facility], [facility] 2 [place] [phone] 12/25/2024 6:45 EST Treatment [facility] [place] [address] [place], [place] [id number] Carlota Jin MD 1 [facility], [facility] 2 [place] [phone] 12/27/2024 6:45 EST Treatment [facility] [place] [address] [place], [place] [id number] Carlota Jin MD 1 [facility], [facility] 2 [place] [phone] 12/29/2024 6:45 EST Treatment [facility] [place] [address] [place], [place] [id number] Carlota Jin MD 1 [facility], [facility] 2 [place] [phone] 01/01/2025 6:45 EDT Treatment [facility] [place] [address] [place], [place] [id number] Carlota Jin MD 1 [facility], [facility] 2 [place] [phone] 01/03/2025 6:45 EDT Treatment [facility] [place] [address] [place], [place] [phone] Carlota Jin MD 1 [facility], Level [address] [place] [phone] 01/05/2025 6:45 EDT Treatment [facility] [place] [address] [place], [place] [address] Carlota Jin MD 1 [facility], [facility] 2 [place] [phone] 01/08/2025 6:45 EDT Treatment [facility] [place] [address] [place], [place] [id number] Carlota Jin MD 1 [facility], [facility] 2 [place] [phone] 01/10/2025 6:45 EDT Treatment [facility] [place] [address] [place] [address] Carlota Jin MD 1 [facility], [facility] 2 [place] [phone] 01/12/2025 6:45 EDT Treatment [facility] [address] [place] [address] Carlota Jin MD 1 [facility], [facility] 2 [place] [phone] 01/15/2025 6:45 EDT Treatment [facility] [address] [place], [place] [id number] Carlota Jin MD 1 [facility], [facility] 2 [place] [phone] 01/17/2025 6:45 EDT Treatment [facility] [place] [address] [place], [place] [id number] Carlota Jin MD 1 [facility], [facility] 2 [place] [phone] 01/19/2025 6:45 EDT Treatment [facility] [place] [address] [place], [place] [id number] Carlota Jin MD 1 [facility], [facility] 2 [place] [phone] 01/22/2025 6:45 EDT Treatment [facility] [place] [address] [place], [place] [id number] Carlota Jin MD [address] [place] [address], [facility] 2 [place] [phone] 01/24/2025 6:45 EDT Treatment [facility] [place] [address] [place], [place] [id number] Carlota Jin MD 1 [facility], [facility] 2 [place] [phone] 01/26/2025 6:45 EDT Treatment [facility] [place] [address] [place], [place] [id number] Carlota Jin MD 1 [facility], [facility] 2 [place] [phone] 01/29/2025 6:45 EDT Treatment [facility] [place] [address] [place], [place] [id number] Carlota Jin MD 1 [facility], [facility] 2 [place] [phone] 01/31/2025 6:45 EDT Treatment [facility] [place] [address] [place], [place] [id number] Carlota Jin MD 1 [facility], [facility] 2 [place] [phone] 02/02/2025 6:45 EDT Treatment [facility] [place] [address] [place], [place] [id number] Carlota Jin MD 1 [facility], [address] [phone] 02/05/2025 6:45 EDT Treatment [facility] [place] [address] [place], [place] [id number] Carlota Jin MD 1 [facility], [address] [phone] 02/07/2025 6:45 EDT Treatment [facility] [place] [address] [place], [place] [id number] Carlota Jin MD 1 [facility], [facility] 2 [place] [phone] 02/09/2025 6:45 EDT Treatment [facility] [place] [address] [place], [place] [id number] Carlota Jin MD 1 [facility], [facility] 2 [place] [phone] 02/12/2025 6:45 EDT Treatment [facility] [place] [address] [place], [place] [id number] Carlota Jin MD [address] [phone] 02/14/2025 6:45 EDT Treatment [facility] [place] [address] [place], [place] [id number] Carlota Jin MD [address] [place] [phone] 02/16/2025 6:45 EDT Treatment [facility] [place] [address] [place], [place] [id number] Carlota Jin MD [address] [place] [phone] 02/19/2025 6:45 EDT Treatment [facility] [place] [address] [place], [place] [id number] Carlota Jin MD [address] [place] [phone] 02/21/2025 6:45 EDT Treatment [facility] [place] [address] [place], [place] [id number] Carlota Jin MD [address] [place] [phone] documented as of this encounter Visit Diagnoses Not on filedocumented in this encounter Care Teams Mutuel Clerk Relationship Specialty Start Date End Date Villegas, Murray, [address] [place] [address] PCP - General 10/12/16 07/06/23 documented as of this encounter
--- OUTSIDE RECORDS SUMMARY | 2024-12-05 12:26 | XMS_ITS | Encounter Summary ---
Author Organization [facility] Address [address] [place] [address] Care Team Providers Care Purchase Analyst Name Role Phone Adeola Villegas APRN Primary Care Provider [phone] Encounter Details Date Type Department Care Team (Late st Contact Info) Description 03/10/2023 7:15 EDT Treatment [facility] [address] [place], [place] [phone] Carlota Jin MD 1 [facility], Level [address] [place] [phone] ESRD (end stage renal disease) ([facility]) (Primary Dx); Abnormal albumin Social History [...] - Temperature - - Respiratory Rate 16 03/10/2023 0655 EDT Oxygen Saturation - - Inhaled Oxygen Concentration - - Weight 91.9 kg (202 lb 9.6 oz) 03/10/2023 0655 E DT Height - - Body Mass Index 29.49 01/25/2023 0751 EDT documented in this encounter Miscellaneous Notes * Flowsheet Note - Melissa Crespo RN - 03/10/2023 1440 EDT 03/10/23 1139 Post-Hemodialysis Assessment Total Blood Processed (L) 88.26 Liters On Line Clearance: spKt/V 1.46 spKt/V Dialyzer Clearance Lightly streaked Treatment UFR (ml:kg:hr) 10.85 ml:kg:hr Critline refill Not done Fluid Removed (L) 3.79 L Post-Dialysis Scale Weight 88 kg (194 lb 0.1 oz) Wheelchair Weight 0 kg (0 lb) Prosthesis Weight 0 kg (0 lb) Post-Treatment Weight (kg) 88 Treatment Weight Change (kg) 3.9 kg Day Target Weight (kg) 88.4 Post Sitting/Lying BP 155/82 Post Sitting/Lying pulse 67 Post Standing BP 117/76 Post Standing Pulse 70 Temp 36.7 ??C (98.1 ??F) Temp src Skin Post access assessment AVF/AFG Hemostasis achieved Yes Orientation Alert and Oriented x3 Yes Cooperative Yes Disoriented No Discharge Ambulation Methods Ambulatory without assistance Wrap up items Patient Response to Treatment Cramped at end of session. UF goal decreased accordingly. Removed 3800 / 4000 UF goal. Stable upon DC from unit. Comments No concerns voiced post tx. documented in this encounter Plan of Treatment Upcoming Encounters Date Type Department Care Team (Late st Contact Info) Description 12/06/2024 6:45 EST Treatment [facility] [address] [place] [id number] Carlota Jin MD 1 [facility], [facility] 2 [place] [phone] 12/08/2024 6:45 EST Treatment [facility] [address] [place] [id number] Carlota Jin MD 1 [facility], [facility] 2 [place] [phone] 12/11/2024 6:45 EST Treatment [facility] [place] [address] [place], [place] [id number] Carlota Jin MD 1 [facility], [facility] 2 [place] [phone] 12/13/2024 6:45 EST Treatment [facility] [place] [address] [place], [place] [id number] Carlota Jin MD 1 [facility], [facility] 2 [place] [phone] 12/15/2024 6:45 EST Treatment [facility] [place] [address] [place], [place] [address] Carlota Jni MD 1 [facility], [facility] 2 [place] [phone] 12/18/2024 6:45 EST Treatment [facility] [place] [address] [place] [address] Carlota Jin MD 1 [facility], [facility] 2 [place] [phone] 12/20/2024 6:45 EST Treatment [facility] [place] [address] [place], [place] [id number] Carlota Jin MD 1 [facility], [facility] 2 [place] [phone] 12/22/2024 6:45 EST Treatment [facility] [place] [address] [place], [place] [id number] Carlota Jin MD 1 [facility], [facility] 2 [place] [phone] 12/25/2024 6:45 EST Treatment [facility] [place] [address] [place], [place] [id number] Carlota Jin MD 1 [facility], [facility] 2 [place] [phone] 12/27/2024 6:45 EST Treatment [facility] [place] [address] [place], [place] [id number] Carlota Jin MD 1 [facility], [facility] 2 [place] [phone] 12/29/2024 6:45 EST Treatment [facility] [place] [address] [place], [place] [id number] Carlota Jin MD 1 [facility], [facility] 2 [place] [phone] 01/01/2025 6:45 EDT Treatment [facility] [place] [address] [place] [address] Carlota Jin MD 1 [facility], [facility] 2 [place] [phone] 01/03/2025 6:45 EDT Treatment [facility] [place] [address] [place], [place] [id number] Carlota Jin MD 1 [facility], [facility] 2 [place] [phone] 01/05/2025 6:45 EDT Treatment [facility] [place] [address] [place], [place] [id number] Carlota Jin MD 1 [facility], [facility] 2 [place] [phone] 01/08/2025 6:45 EDT Treatment [facility] [place] [address] [place], [place] [id number] Carlota Jin MD 1 [facility], [facility] 2 [place] [phone] 01/10/2025 6:45 EDT Treatment [facility] [address] [place], [place] [id number] Carlota Jin MD [address] [place] [address], [facility] 2 [place] [phone] 01/12/2025 6:45 EDT Treatment [facility] [address] [place], [place] [id number] Carlota Jin MD [address] [place] [address], [facility] 2 [place] [phone] 01/15/2025 6:45 EDT Treatment [facility] [address] [place], [place] [id number] Carlota Jin MD 1 [facility], [facility] 2 [place] [phone] 01/17/2025 6:45 EDT Treatment [facility] [place] [address] [place], [place] [id number] Carlota Jin MD 1 [facility], [facility] 2 [place] [phone] 01/19/2025 6:45 EDT Treatment [facility] [place] [address] [place], [place] [id number] Carlota Jin MD 1 [facility], [address] [phone] 01/22/2025 6:45 EDT Treatment [facility] [place] [address] [place], [place] [id number] Carlota Jin MD 1 [facility], [address] [phone] 01/24/2025 6:45 EDT Treatment [facility] [place] [address] [place], [place] [id number] Carlota Jin MD [address] [phone] 01/26/2025 6:45 EDT Treatment [facility] [place] [address] [place], [place] [id number] Carlota Jin MD [address] [phone] 01/29/2025 6:45 EDT Treatment [facility] [place] [address] [place], [place] [id number] Carlota Jin MD 1 [facility], [facility] 2 [place] [phone] 01/31/2025 6:45 EDT Treatment [facility] [place] [address] [place], [place] [id number] Carlota Jin MD 1 [facility], [facility] 2 [place] [phone] 02/02/2025 6:45 EDT Treatment [facility] [place] [address] [place], [place] [id number] Carlota Jin MD 1 [facility], [facility] 2 [place] [phone] 02/05/2025 6:45 EDT Treatment [facility] [place] [address] [place], [place] [id number] Carlota Jin MD 1 [facility], [facility] 2 [place] [phone] 02/07/2025 6:45 EDT Treatment [facility] [place] [address] [place] [address] Carlota Jin MD 1 [facility], [facility] 2 [place] [phone] 02/09/2025 6:45 EDT Treatment [facility] [place] [address] [place], [place] [id number] Carlota Jin MD 1 [facility], [facility] 2 [place] [phone] 02/12/2025 6:45 EDT Treatment [facility] [place] [address] [place], [place] [id number] Carlota Jin MD 1 [facility], [address] [phone] 02/14/2025 6:45 EDT Treatment [facility] [place] [address] [place], [place] [id number] Carlota Jin MD [address] [place] [address], [address] [phone] 02/16/2025 6:45 EDT Treatment [facility] [place] [address] [place], [place] [id number] Carlota Jin MD [address] [place] [address], [address] [phone] 02/19/2025 6:45 EDT Treatment [facility] [place] [address] [place], [place] [id number] Carlota Jin MD [address] [place] [address], [address] [phone] 02/21/2025 6:45 EDT Treatment [facility] [place] [address] [place], [place] [id number] Carlota Jin MD [address] [place] [phone] documented as of this encounter Procedures Procedure Name Priority Date/Time Associated Diagnosis Comments COMPLETE BLOOD COUNT Routine 03/10/2023 6:59 EDT ESRD (end stage renal disease) ([facility]) HEMODIALYSIS Routine 03/10/2023 6:55 EDT ESRD (end stage renal disease) ([facility]) documented in this encounter Results * (ABNORMAL) COMPLETE BLOOD COUNT (03/10/2023 6:59 EDT) WBC 8.18 4.00 - 10.40 K/cmm 03/10/2023 21:16 [facility] RBC 3.24(L) 4.36 - 5.78 M/cmm 03/10/2023 21:16 [facility] Hemoglobin 10.4(L) 13.8 - 17.3 gm/dL 03/10/2023 21:16 [facility] HCT 31.3(L) 39.5 - 50.2 % 03/10/2023 21:16 [facility] MCV 97(H) 81 - 95 fl 03/10/2023 21:16 [facility] MCH 32.1 27.6 - 33.0 pg 03/10/2023 21:16 [facility] MCHC 33.2 32.8 - 36.4 gm/dL 03/10/2023 21:16 [facility] RDW-CV 12.1 <14.2 % 03/10/2023 21:16 [facility] RDW-SD 43.3 <46.0 fl 03/10/2023 21:16 [facility] PLT 247 141 - 377 K/cmm 03/10/2023 21:16 [facility] MPV 11.7 9.5 - 12.7 fl 03/10/2023 21:16 [facility] Blood VENOUS BLOOD / Unknown Venipuncture / Unknown 03/10/2023 6:59 EDT 03/10/2023 6:59 EDT us Carlota Jin MD HEMATOLOGY & PF4 ORDERABL ES Final Result [facility] [address] [place] [address] documented in this encounter Visit Diagnoses Diagnosis ESRD (end stage renal disease) ([facility])- Primary End stage renal disease Abnormal albumin Other nonspecific findings on examination of blood documented in this encounter Administered Medications Inactive Administered Medications - up to 3 most recent administrations Medication Order MAR Action Action Date Dose Rate Site heparin injection 9,000 Units 9,000 Units, intravenous, ONCE IN DIALYSIS, 1 dose, On Wed03/10/23 at 0715, Routine, Dialysis, Now x1 bolus 4500 units to be given at the beginning of dialysis 1500 units/hour to be given over the course of dialysis (9000 units total). Stop 1 hour prior to end of treatment. To be administered per Policy [id number].Indications:ESRD (end stage renal disease) ([facility]) Given 03/10/2023 7:08 EDT 9,000 Units nepro w/ carb steady bolus 237 mL 237 mL (1 Package), oral, ONCE IN DIALYSIS, 1 dose, On Wed03/10/23 at 0715, RoutineIndications:ESRD (end stage renal disease) ([facility]),Abnormal albumin Given 03/10/2023 7:19 EDT 237 mL documented in this encounter Orders Dialysis Count Last Ordered Date First Orde red Date HEMODIALYSIS 1 03/10/2023 documented in this encounter Care Teams Purchase Analyst Relationship Specialty Start Date End Date Adeola Villegas APRN [address] [place] [address] PCP - General 10/12/16 07/06/23 documented as of this encounter
--- OUTSIDE RECORDS SUMMARY | 2024-12-05 12:26 | XMS_ITS | Encounter Summary ---
Author Organization [facility] [place] Address [address] [place] [address] Care Team Providers Care Photo Mask Processor Name Role Phone Adeola Villegas APRN Primary Care Provider [phone] Encounter Details Date Type Department Care Team (Late st Contact Info) Description 03/09/2023 Orders Only [facility] [address] [place], [place] [id number] Yoanna Degroot, RN Social History Tobacco Use [...] EST Treatment [facility] [address] [place] [address] Carlota Jin MD 1 [facility][1]ab, Level [address] [place] [address] 12/08/2024 6:45 EST Treatment [facility] [address] [place] [id number] Carlota Jin MD 1 [facility][1]ab, [facility] [address] [place] [phone] 12/11/2024 6:45 EST Treatment [facility] [place] [address] [place], [place] [address] Carlota Jin MD 1 [facility][1]ab, [facility] 2 [place] [phone] 12/13/2024 6:45 EST Treatment [facility] [place] [address] [place], [place] [id number] Carlota Jin MD 1 [facility], [facility] 2 [place] [phone] 12/15/2024 6:45 EST Treatment [facility] [place] [address] [place], [place] [id number] Carlota Jin MD 1 [facility], [facility] 2 [place] [phone] 12/18/2024 6:45 EST Treatment [facility] [address] [place] [address] Carlota Jin MD 1 [facility][1]ab, [facility] [address] [place] [phone] 12/20/2024 6:45 EST Treatment [facility] [place] [address] [place], [place] [id number] Carlota Jin MD 1 [facility], [facility] [address] [place] [phone] 12/22/2024 6:45 EST Treatment [facility] [place] [address] [place], [place] [id number] Carlota Jin MD 1 [facility], [facility] [address] [place] [phone] 12/25/2024 6:45 EST Treatment [facility] [place] [address] [place], [place] [id number] Carlota Jin MD 1 [facility], [facility] [address] [place] [phone] 12/27/2024 6:45 EST Treatment [facility] [place] [address] [place], [place] [id number] Carlota iJn MD 1 [facility], [facility] 2 [place] [phone] 12/29/2024 6:45 EST Treatment [facility] [place] [address] [place], [place] [id number] Carlota Jin MD 1 [facility], [facility] [address] [place] [phone] 01/01/2025 6:45 EDT Treatment [facility] [place] [address] [place], [place] [id number] Carlota Jin MD 1 [facility], [facility] 2 [place] [phone] 01/03/2025 6:45 EDT Treatment [facility] [place] [address] [place], [place] [phone] Carlota Jin MD 1 [facility][1]ab, Level [address] [place] [phone] 01/05/2025 6:45 EDT Treatment [facility] [place] [address] [place], [place] [address] Carlota Jin MD 1 [facility][1]ab, [facility] 2 [place] [phone] 01/08/2025 6:45 EDT Treatment [facility] [place] [address] [place], [place] [id number] Carlota Jin MD 1 [facility], [facility] [address] [place] [phone] 01/10/2025 6:45 EDT Treatment [facility] [place] [address] [place] [address] Carlota Jin MD 1 [facility], [facility] 2 [place] [phone] 01/12/2025 6:45 EDT Treatment [facility] [address] [place] [address] Carlota Jin MD 1 [facility][1]ab, [facility] [address] [place] [phone] 01/15/2025 6:45 EDT Treatment [facility] [address] [place], [place] [phone] Carlota Jin MD 1 [facility], [facility] [address] [place] [phone] 01/17/2025 6:45 EDT Treatment [facility] [place] [address] [place], [place] [phone] Carlota Jin MD 1 [facility], [facility] 2 [place] [phone] 01/19/2025 6:45 EDT Treatment [facility] [place] [address] [place], [place] [id number] Carlota Jin MD 1 [facility], [facility] 2 [place] [phone] 01/22/2025 6:45 EDT Treatment [facility] [place] [address] [place], [place] [phone] Carlota Jin MD [address] [place] [address], [facility] [address] [place] [phone] 01/24/2025 6:45 EDT Treatment [facility] [place] [address] [place], [place] [phone] Carlota Jin MD 1 [facility], [facility] [address] [place] [phone] 01/26/2025 6:45 EDT Treatment [facility] [place] [address] [place], [place] [phone] Carlota Jin MD 1 [facility], [facility] [address] [place] [phone] 01/29/2025 6:45 EDT Treatment [facility] [place] [address] [place], [place] [id number] Carlota Jin MD 1 [facility], [facility] [address] [place] [phone] 01/31/2025 6:45 EDT Treatment [facility] [place] [address] [place], [place] [phone] Carlota Jin MD 1 [facility][1]ab, [facility] 2 [place] [phone] 02/02/2025 6:45 EDT Treatment [facility] [place] [address] [place], [place] [phone] Carlota Jin MD 1 [facility], [address] [phone] 02/05/2025 6:45 EDT Treatment [facility] [place] [address] [place], [place] [phone] Carlota Jin MD 1 [facility], [address] [phone] 02/07/2025 6:45 EDT Treatment [facility] [place] [address] [place], [place] [phone] Carlota Jin MD 1 [facility], [facility] [address] [place] [phone] 02/09/2025 6:45 EDT Treatment [facility] [place] [address] [place], [place] [phone] Carlota Jin MD 1 [facility], [facility] 2 [place] [phone] 02/12/2025 6:45 EDT Treatment [facility] [place] [address] [place], [place] [id number] Carlota Jin MD [address] [phone] 02/14/2025 6:45 EDT Treatment [facility] [place] [address] [place], [place] [phone] Carlota Jin MD [address] [place] [phone] 02/16/2025 6:45 EDT Treatment [facility] [place] [address] [place], [place] [phone] Carlota Jin MD [address] [place] [phone] 02/19/2025 6:45 EDT Treatment [facility] [place] [address] [place], [place] [phone] Carlota Jin MD [address] [place] [phone] 02/21/2025 6:45 EDT Treatment [facility] [place] [address] [place], [place] [phone] Carlota Jin MD [address] [place] [phone] documented as of this encounter Visit Diagnoses Not on filedocumented in this encounter Care Teams Photo Mask Processor Relationship Specialty Start Date End Date Villegas, Adeola, ROLLING UP MACHINE OPERATOR Moh[address] [place] [address] PCP - General 10/12/16 07/06/23 documented as of this encounter
--- OUTSIDE RECORDS SUMMARY | 2024-12-05 12:26 | XMS_ITS | Encounter Summary ---
Author Organization [facility] Address [address] [place] [address] Care Team Providers Care Transcripter Name Role Phone Adeola Villegas APRN Primary Care Provider Encounter Details Date Type Department Care Team (Late st Contact Info) Description 03/10/2023 [facility]ation [facility] [address] [place], [place] [phone] Melissa Crespo, RN Social History Tobacco Use [...] Info) Description 12/06/2024 6:45 EST Treatment [facility] [address] [place] [id number] [facility] [address] [place] [address] 12/08/2024 6:45 EST Treatment [facility] [address] [place] [address] Carl[facility] MD [facility], [facility] 2 [place] [phone] 12/11/2024 6:45 EST Treatment [facility] [place] [address] [place], [place] [address] Carlota Jin MD [facility], [facility] 2 [place] [phone] 12/13/2024 6:45 EST Treatment [facility] [place] [address] [place], [place] [id number] Carlota Jin MD 1 [facility], [facility] 2 [place] [phone] 12/15/2024 6:45 EST Treatment [facility] [place] [address] [place], [place] [id number] Carlota Jin MD 1 [facility], [facility] 2 [place] [phone] 12/18/2024 6:45 EST Treatment [facility] [address] [place] [address] Carlota Jin MD 1 [facility], [facility] 2 [place] [phone] 12/20/2024 6:45 EST Treatment [facility] [place] [address] [place], [place] [id number] Carlota Jin MD 1 [facility], [facility] 2 [place] [phone] 12/22/2024 6:45 EST Treatment [facility] [place] [address] [place], [place] [id number] Carlota Jin MD 1 [facility], [facility] 2 [place] [phone] 12/25/2024 6:45 EST Treatment [facility] [place] [address] [place], [place] [id number] Carlota Jin MD 1 [facility], [facility] 2 [place] [phone] 12/27/2024 6:45 EST Treatment [facility] [place] [address] [place], [place] [id number] Carlota Jin MD 1 [facility], [facility] 2 [place] [phone] 12/29/2024 6:45 EST Treatment [facility] [place] [address] [place], [place] [id number] Carlota Jin MD 1 [facility], [facility] 2 [place] [phone] 01/01/2025 6:45 EDT Treatment [facility] [place] [address] [place], [place] [id number] Carlota Jin MD 1 [facility], [facility] 2 [place] [phone] 01/03/2025 6:45 EDT Treatment [facility] [place] [address] [place], [place] [id number] Carlota Jin MD [facility], [address] [place] [phone] 01/05/2025 6:45 EDT Treatment [facility] [place] [address] [place], [place] [address] Carlota Jin MD 1 [facility], [facility] 2 [place] [phone] 01/08/2025 6:45 EDT Treatment [facility] [place] [address] [place], [place] [id number] Carlota Jin MD 1 [facility], [facility] 2 [place] [phone] 01/10/2025 6:45 EDT Treatment [facility] [place] [address] [place] [address] Carlota Jin MD 1 [facility], [facility] 2 [place] [phone] 01/12/2025 6:45 EDT Treatment [facility] [address] [place] [address] Carlota Jin MD 1 [facility], [facility] 2 [place] [phone] 01/15/2025 6:45 EDT Treatment [facility] [address] [place], [place] [id number] Carlota Jin MD 1 [facility], [facility] 2 [place] [phone] 01/17/2025 6:45 EDT Treatment [facility] [place] [address] [place], [place] [id number] Carlota Jin MD 1 [facility], [facility] 2 [place] [phone] 01/19/2025 6:45 EDT Treatment [facility] [place] [address] [place], [place] [id number] Carlota Jin MD 1 [facility], [facility] 2 [place] [phone] 01/22/2025 6:45 EDT Treatment [facility] [place] [address] [place], [place] [id number] Carlota Jin MD [address] [place] [address], [facility] 2 [place] [phone] 01/24/2025 6:45 EDT Treatment [facility] [place] [address] [place], [place] [id number] Carlota Jin MD 1 [facility], [facility] 2 [place] [phone] 01/26/2025 6:45 EDT Treatment [facility] [place] [address] [place], [place] [id number] Carlota Jin MD 1 [facility], [facility] 2 [place] [phone] 01/29/2025 6:45 EDT Treatment [facility] [place] [address] [place], [place] [id number] Carlota Jin MD 1 [facility], [facility] 2 [place] [phone] 01/31/2025 6:45 EDT Treatment [facility] [place] [address] [place], [place] [id number] Carlota Jin MD 1 [facility], [facility] 2 [place] [phone] 02/02/2025 6:45 EDT Treatment [facility] [place] [address] [place], [place] [id number] Carlota Jin MD 1 [facility], [address] [phone] 02/05/2025 6:45 EDT Treatment [facility] [place] [address] [place], [place] [id number] Carlota Jin MD 1 [facility], [address] [phone] 02/07/2025 6:45 EDT Treatment [facility] [place] [address] [place], [place] [id number] Carlota Jin MD 1 [facility], [facility] 2 [place] [phone] 02/09/2025 6:45 EDT Treatment [facility] [place] [address] [place], [place] [id number] Carlota Jin MD 1 [facility], [facility] 2 [place] [phone] 02/12/2025 6:45 EDT Treatment [facility] [place] [address] [place], [place] [id number] Carlota Jin MD [address] [phone] 02/14/2025 6:45 EDT Treatment [facility] [place] [address] [place], [place] [id number] Carlota Jin MD [address] [place] [phone] 02/16/2025 6:45 EDT Treatment [facility] [place] [address] [place], [place] [id number] Carlota Jin MD [address] [place] [phone] 02/19/2025 6:45 EDT Treatment [facility] [place] [address] [place], [place] [id number] Carlota Jin MD [address] [place] [phone] 02/21/2025 6:45 EDT Treatment [facility] [place] [address] [place], [place] [id number] Carlota Jin MD [address] [place] [phone] documented as of this encounter Visit Diagnoses Not on filedocumented in this encounter Care Teams Transcripter Relationship Specialty Start Date End Date Villegas, Mclennan, TELE RN Mohit [address] [place] [address] PCP - General 10/12/16 07/06/23 documented as of this encounter
--- OUTSIDE RECORDS SUMMARY | 2024-12-05 12:26 | XMS_ITS | Encounter Summary ---
Author Organization [facility] Address [address] [place] [address] Care Team Providers Care Stripper Black And White Name Role Phone Adeola Villegas APRN Primary Care Provider [phone] Encounter Details Date Type Department Care Team (Late st Contact Info) Description 03/05/2023 Documentation Visit [facility] [address] [place], [place] [id number] Melissa Crespo, RN Social History Tobacco Use [...] Description 12/06/2024 6:45 EST Treatment [facility] [address] [place] [address] Carlota Jin MD 1 [facility], Level [address] [place] [address] 12/08/2024 6:45 EST Treatment [facility] [address] [place] [address] Carlota Jin MD 1 [facility], [facility] 2 [place] [phone] 12/11/2024 6:45 EST Treatment [facility] [place] [address] [place], [place] [address] Carlota Jin MD 1 [facility], [facility] 2 [place] [phone] 12/13/2024 6:45 EST Treatment [facility] [place] [address] [place], [place] [id number] Carlota Jin MD 1 [facility], [facility] 2 [place] [phone] 12/15/2024 6:45 EST Treatment [facility] [place] [address] [place], [place] [id number] Carlota Jin MD 1 [facility], [facility] 2 [place] [phone] 12/18/2024 6:45 EST Treatment [facility] [address] [place] [address] Carlota Jin MD 1 [facility], [facility] 2 [place] [phone] 12/20/2024 6:45 EST Treatment [facility] [place] [address] [place], [place] [id number] Carlota Jin MD 1 [facility], [facility] 2 [place] [phone] 12/22/2024 6:45 EST Treatment [facility] [place] [address] [place], [place] [id number] Carlota Jin MD 1 [facility], [facility] 2 [place] [phone] 12/25/2024 6:45 EST Treatment [facility] [place] [address] [place], [place] [id number] Carlota Jin MD 1 [facility], [facility] 2 [place] [phone] 12/27/2024 6:45 EST Treatment [facility] [place] [address] [place], [place] [id number] Carlota Jin MD 1 [facility], [facility] 2 [place] [phone] 12/29/2024 6:45 EST Treatment [facility] [place] [address] [place], [place] [id number] Carlota Jin MD 1 [facility], [facility] 2 [place] [phone] 01/01/2025 6:45 EDT Treatment [facility] [place] [address] [place], [place] [id number] Carlota Jin MD 1 [facility], [facility] 2 [place] [phone] 01/03/2025 6:45 EDT Treatment [facility] [place] [address] [place], [place] [id number] Carlota Jin MD 1 [facility], [address] [place] [phone] 01/05/2025 6:45 EDT Treatment [facility] [place] [address] [place], [place] [address] Carlota Jin MD 1 [facility], [facility] 2 [place] [phone] 01/08/2025 6:45 EDT Treatment [facility] [place] [address] [place], [place] [id number] Carlota Jin MD 1 [facility], [facility] 2 [place] [phone] 01/10/2025 6:45 EDT Treatment [facility] [place] [address] [place] [address] Carlota Jin MD 1 [facility], [facility] 2 [place] [phone] 01/12/2025 6:45 EDT Treatment [facility] [address] [place] [address] Carlota Jin MD 1 [facility], [facility] 2 [place] [phone] 01/15/2025 6:45 EDT Treatment [facility] [address] [place], [place] [id number] Carlota Jin MD 1 [facility], [facility] 2 [place] [phone] 01/17/2025 6:45 EDT Treatment [facility] - [place] [address] [place], [place] [id number] Carlota Jin MD 1 [facility], [facility] 2 [place] [phone] 01/19/2025 6:45 EDT Treatment [facility] - [place] [address] [place], [place] [id number] Carlota Jin MD 1 [facility], [facility] 2 [place] [phone] 01/22/2025 6:45 EDT Treatment [facility] [place] [address] [place], [place] [id number] Carlota Jin MD [address] [place] [address], [facility] 2 [place] [phone] 01/24/2025 6:45 EDT Treatment [facility] - [place] [address] [place], [place] [id number] Carlota Jin MD 1 [facility], [facility] 2 [place] [phone] 01/26/2025 6:45 EDT Treatment [facility] [place] [address] [place], [place] [id number] Carlota Jin MD 1 [facility], [facility] 2 [place] [phone] 01/29/2025 6:45 EDT Treatment [facility] [place] [address] [place], [place] [id number] Carlota Jin MD 1 [facility], [facility] 2 [place] [phone] 01/31/2025 6:45 EDT Treatment [facility] [place] [address] [place], [place] [id number] Carlota Jin MD 1 [facility], [facility] 2 [place] [phone] 02/02/2025 6:45 EDT Treatment [facility] [place] [address] [place], [place] [id number] Carlota Jin MD 1 [facility], [address] [phone] 02/05/2025 6:45 EDT Treatment [facility] [place] [address] [place], [place] [id number] Carlota Jin MD 1 [facility], [address] [phone] 02/07/2025 6:45 EDT Treatment [facility] [place] [address] [place], [place] [id number] Carlota Jin MD 1 [facility], [facility] 2 [place] [phone] 02/09/2025 6:45 EDT Treatment [facility] [place] [address] [place], [place] [id number] Carlota Jin MD 1 [facility], [facility] 2 [place] [phone] 02/12/2025 6:45 EDT Treatment [facility] [place] [address] [place], [place] [id number] Carlota Jin MD [address] [phone] 02/14/2025 6:45 EDT Treatment [facility] [place] [address] [place], [place] [id number] Carlota Jin MD [address] [place] [phone] 02/16/2025 6:45 EDT Treatment [facility] [place] [address] [place], [place] [id number] Carlota Jin MD [address] [place] [phone] 02/19/2025 6:45 EDT Treatment [facility] - [place] [address] [place], [place] [id number] Carlota Jin MD [address] [place] [phone] 02/21/2025 6:45 EDT Treatment [facility] [place] [address] [place], [place] [id number] Carlota Jin MD [address] [place] [phone] documented as of this encounter Visit Diagnoses Not on filedocumented in this encounter Care Teams Stripper Black And White Relationship Specialty Start Date End Date Villegas, Lassen, MEDICAL EDUCATION MANAGER [address] [place] [address] PCP - General 10/12/16 07/06/23 documented as of this encounter
--- OUTSIDE RECORDS SUMMARY | 2024-12-05 12:26 | XMS_ITS | Encounter Summary ---
Author Organization [facility] Address [address] [place] [address] Care Team Providers Care Hazardous Substances Engineer Name Role Phone Adeola Villegas APRN Primary Care Provider [phone] Encounter Details Date Type Department Care Team (Late st Contact Info) Description 03/12/2023 Orders Only [facility] [address] [place], [place] [phone] Yoanna Degroot, RN Social History Tobacco Use [...] [facility]ial[facility] [address] [place] [address] Carlota Jin MD 1 [facility], [address] [place] [phone] 12/08/2024 6:45 EST [facility] [address] [place] [address] Carlota Jin MD 1 [facility], [facility] 2 [place] [phone] 12/11/2024 6:45 EST Treatment [facility] - [place] [address] [place], [place] [address] Carlota Jin MD 1 [facility], [facility] 2 [place] [phone] 12/13/2024 6:45 EST Treatment [facility] - [place] [address] [place], [place] [id number] Carlota Jin MD 1 [facility], [facility] 2 [place] [phone] 12/15/2024 6:45 EST Treatment [facility] - [place] [address] [place], [place] [address] Carlota Jin MD 1 [facility], [facility] 2 [place] [phone] 12/18/2024 6:45 EST Treatment [facility] [address] [place] [address] Carlota Jin MD 1 [facility], [facility] 2 [place] [phone] 12/20/2024 6:45 EST Treatment [facility]i [place] [address] [place], [place] [id number] Carlota Jin MD 1 [facility], [facility] 2 [place] [phone] 12/22/2024 6:45 EST Treatment [facility] - [place] [address] [place], [place] [id number] Carlota Jin MD 1 [facility], [facility] 2 [place] [phone] 12/25/2024 6:45 EST Treatment [facility] - [place] [address] [place], [place] [id number] Carlota Jin MD 1 [facility], [facility] 2 [place] [phone] 12/27/2024 6:45 EST Treatment [facility] - [place] [address] [place], [place] [id number] Carlota Jin MD 1 [facility], [facility] [address] [place] [phone] 12/29/2024 6:45 EST Treatment [facility] - [place] [address] [place], [place] [id number] Carlota Jin MD 1 [facility], [facility] 2 [place] [phone] 01/01/2025 6:45 EDT Treatment [facility] [place] [address] [place], [place] [id number] Carlota Jin MD 1 [facility], [facility] [address] [place] [phone] 01/03/2025 6:45 EDT Treatment [facility] - [place] [address] [place], [place] [id number] Carlota Jin MD 1 [facility], [address] [place] [phone] 01/05/2025 6:45 EDT Treatment [facility] [place] [address] [place], [place] [address] Carlota Jin MD 1 [facility], [facility] [address] [place] [phone] 01/08/2025 6:45 EDT Treatment [facility] [place] [address] [place], [place] [id number] Carlota Jin MD 1 [facility], [facility] 2 [place] [phone] 01/10/2025 6:45 EDT Treatment [facility] [place] [address] [place] [address] Carlota Jin MD 1 [facility], [facility] [address] [place] [phone] 01/12/2025 6:45 EDT Treatment [facility] [address] [place] [address] Carlota Jin MD 1 [facility], [facility] [address] [place] [phone] 01/15/2025 6:45 EDT Treatment [facility] [address] [place], [place] [id number] Carlota Jin MD 1 [facility], [facility] [address] [place] [phone] 01/17/2025 6:45 EDT Treatment [facility] - [place] [address] [place], [place] [id number] Carlota Jin MD 1 [facility], [facility] [address] [place] [phone] 01/19/2025 6:45 EDT Treatment [facility] [place] [address] [place], [place] [id number] Carlota Jin MD 1 [facility], [facility] [address] [place] [phone] 01/22/2025 6:45 EDT Treatment [facility] - [place] [address] [place], [place] [id number] Carlota Jin MD [address] [place] [address], [facility] [address] [place] [phone] 01/24/2025 6:45 EDT Treatment [facility] [place] [address] [place], [place] [id number] Carlota Jin MD 1 [facility], [facility] [address] [place] [phone] 01/26/2025 6:45 EDT Treatment [facility] [place] [address] [place], [place] [id number] Carlota Jin MD 1 [facility], [facility] [address] [place] [phone] 01/29/2025 6:45 EDT Treatment [facility] [place] [address] [place], [place] [id number] Carlota Jin MD 1 [facility], [facility] [address] [place] [phone] 01/31/2025 6:45 EDT Treatment [facility] [place] [address] [place], [place] [id number] Carlota Jin MD 1 [facility], [facility] [address] [place] [phone] 02/02/2025 6:45 EDT Treatment [facility] [place] [address] [place], [place] [id number] Carlota Jin MD 1 [facility], [address] [phone] 02/05/2025 6:45 EDT Treatment [facility] [place] [address] [place], [place] [id number] Carlota Jin MD 1 [facility], [address] [phone] 02/07/2025 6:45 EDT Treatment [facility] - [place] [address] [place], [place] [id number] Carlota Jin MD 1 [facility], [facility] [address] [place] [phone] 02/09/2025 6:45 EDT Treatment [facility] - [place] [address] [place], [place] [id number] Carlota Jin MD 1 [facility], [facility] [address] [place] [phone] 02/12/2025 6:45 EDT Treatment [facility] - [place] [address] [place], [place] [id number] Carlota Jin MD [address] [phone] 02/14/2025 6:45 EDT Treatment [facility] - [place] [address] [place], [place] [id number] Carlota Jin MD [address] [place] [phone] 02/16/2025 6:45 EDT Treatment [facility] - [place] [address] [place], [place] [id number] Carlota Jin MD [address] [place] [phone] 02/19/2025 6:45 EDT Treatment [facility] - [place] [address] [place], [place] [id number] Carlota Jin MD [address] [place] [phone] 02/21/2025 6:45 EDT Treatment [facility] - [place] [address] [place], [place] [id number] Carlota Jin MD [address] [place] [phone] documented as of this encounter Visit Diagnoses Not on filedocumented in this encounter Care Teams Hazardous Substances Engineer Relationship Specialty Start Date End Date Villegas, Adeola, BLOOD BANK CREDIT CLERK Moh[address] [place] [address] PCP - General 10/12/16 07/06/23 documented as of this encounter
--- OUTSIDE RECORDS SUMMARY | 2024-12-05 12:26 | XMS_ITS | Encounter Summary ---
Author Organization [facility] Address [address] [place] [address] Care Team Providers Care Machine Ii Engraver Name Role Phone Adeola Villegas MONA Primary Care Provider [phone] Encounter Details Date Type Department Care Team (Late st Contact Info) Description 03/01/2023 7:15 EDT Treatment [facility] [address] [place] [id number] Carlota Jin MD 1 [facility], Level 2 [place] [address] ESRD (end stage renal disease) ([facility]) (Primary Dx); [...] - Temperature - - Respiratory Rate 16 03/01/2023 0658 EDT Oxygen Saturation - - Inhaled Oxygen Concentration - - Weight 91.3 kg (201 lb 4.5 oz) 03/01/2023 0658 E DT Height - - Body Mass Index 29.3 01/25/2023 0751 EDT documented in this encounter Miscellaneous Notes * Flowsheet Note - Melissa Crespo RN - 03/01/2023 1509 EDT 03/01/23 1116 Post-Hemodialysis Assessment Total Blood Processed (L) 89.02 Liters On Line Clearance: spKt/V 1.52 spKt/V Dialyzer Clearance Lightly streaked Treatment UFR (ml:kg:hr) 9.07 ml:kg:hr Final Critline Profile (%/hr) -4.96 Final Profile Profile B Critline refill Negative Fluid Removed (L) 3.3 L Post-Dialysis Scale Weight 88 kg (194 lb 0.1 oz) Wheelchair Weight 0 kg (0 lb) Prosthesis Weight 0 kg (0 lb) Post-Treatment Weight (kg) 88 Treatment Weight Change (kg) 3.3 kg Day Target Weight (kg) 88 Post Sitting/Lying BP 152/80 Post Sitting/Lying pulse 67 Post Standing BP 121/74 Post Standing Pulse 71 Temp 36.1 ??C (97 ??F) Temp src Temporal Post access assessment AVF/AFG Hemostasis achieved Yes Orientation Alert and Oriented x3 Yes Cooperative Yes Disoriented No Discharge Ambulation Methods Ambulatory without assistance Wrap up items Patient Response to Treatment In first hour of tx, Critline in C profile and UF goal reduced from 3800 to 3300 which pt was able to remove. Critline refill Neg at end of tx. Comments No concerns voiced post tx. Stable upon DC from unit. documented in this encounter Plan of Treatment Upcoming Encounters Date Type Department Care Team (Late st Contact Info) Description 12/06/2024 6:45 EST Treatment [facility] [place] [address] [place] [id number] Carlota Jin MD 1 [facility], Level 2 [place] [address] 12/08/2024 6:45 EST Treatment [facility] [address] [place], [place] [id number] Carlota Jin MD 1 [facility], [facility] 2 [place] [phone] 12/11/2024 6:45 EST Treatment [facility] [place] [address] [place], [place] [id number] Carlota Jin MD 1 [facility], [facility] 2 [place] [phone] 12/13/2024 6:45 EST Treatment [facility] [place] [address] [place] [address] Carlota Jin MD 1 [facility], [address] [phone] 12/15/2024 6:45 EST Treatment [facility] [place] [address] [place], [place] [id number] Carlota Jin MD 1 [facility], [address] [phone] 12/18/2024 6:45 EST Treatment [facility] [place] [address] [place] [address] Carlota Jin MD 1 [facility], [facility] 2 [place] [phone] 12/20/2024 6:45 EST Treatment [facility] [place] [address] [place], [place] [id number] Carlota Jin MD 1 [facility], [facility] 2 [place] [phone] 12/22/2024 6:45 EST Treatment [facility] [place] [address] [place], [place] [id number] Carlota Jin MD 1 [facility], [facility] 2 [place] [phone] 12/25/2024 6:45 EST Treatment [facility] [place] [address] [place], [place] [id number] Carlota Jin MD 1 [facility], [facility] 2 [place] [phone] 12/27/2024 6:45 EST Treatment [facility] [place] [address] [place], [place] [id number] Carlota Jin MD 1 [facility], [facility] 2 [place] [phone] 12/29/2024 6:45 EST Treatment [facility] [place] [address] [place], [place] [address] Carlota Jin MD 1 [facility], [facility] 2 [place] [phone] 01/01/2025 6:45 EDT Treatment [facility] [place] [address] [place], [place] [id number] Carlota Jin MD 1 [facility], [facility] 2 [place] [phone] 01/03/2025 6:45 EDT Treatment [facility] [place] [address] [place], [place] [id number] Carlota Jin MD 1 [facility], [facility] 2 [place] [phone] 01/05/2025 6:45 EDT Treatment [facility] [place] [address] [place] [address] Carlota Jin MD 1 [facility], [address] [phone] 01/08/2025 6:45 EDT Treatment [facility] [place] [address] [place], [place] [id number] Carlota Jin MD 1 [facility], [address] [phone] 01/10/2025 6:45 EDT Treatment [facility] [place] [address] [place], [place] [id number] Carlota Jin MD 1 [facility], [address] [phone] 01/12/2025 6:45 EDT Treatment [facility] [place] [address] [place], [place] [id number] Carlota Jin MD 1 [facility], [facility] 2 [place] [phone] 01/15/2025 6:45 EDT Treatment [facility] [place] [address] [place], [place] [id number] Carlota Jin MD 1 [facility], [facility] 2 [place] [phone] 01/17/2025 6:45 EDT Treatment [facility] [place] [address] [place], [place] [id number] Carlota Jin MD 1 [facility], [facility] 2 [place] [phone] 01/19/2025 6:45 EDT Treatment [facility] [place] [address] [place], [place] [id number] Carlota Jin MD 1 [facility], [facility] 2 [place] [phone] 01/22/2025 6:45 EDT Treatment [facility] [place] [address] [place] [address] Carlota Jin MD 1 [facility], [address] [phone] 01/24/2025 6:45 EDT Treatment [facility] [place] [address] [place], [place] [id number] Carlota Jin MD 1 [facility], [facility] 2 [place] [phone] 01/26/2025 6:45 EDT Treatment [facility] [place] [address] [place], [place] [id number] Carlota Jin MD 1 [facility], [facility] 2 [place] [phone] 01/29/2025 6:45 EDT Treatment [facility] [place] [address] [place], [place] [address] Carlota Jin MD 1 [facility], [facility] 2 [place] [phone] 01/31/2025 6:45 EDT Treatment [facility] [place] [address] [place], [place] [id number] Carlota Jin MD 1 [facility], [facility] 2 [place] [phone] 02/02/2025 6:45 EDT Treatment [facility] [place] [address] [place], [place] [id number] Carlota Jin MD 1 [facility], [address] [phone] 02/05/2025 6:45 EDT Treatment [facility] [place] [address] [place], [place] [id number] Carlota Jin MD [address] [phone] 02/07/2025 6:45 EDT Treatment [facility] [place] [address] [place], [place] [id number] Carlota Jin MD [address] [phone] 02/09/2025 6:45 EDT Treatment [facility] [place] [address] [place], [place] [id number] Carlota Jin MD 1 [facility] 2 [place] [phone] 02/12/2025 6:45 EDT Treatment [facility] [place] [address] [place], [place] [address] Carlota Jin MD 1 [facility], [facility] 2 [place] [phone] 02/14/2025 6:45 EDT Treatment [facility] [place] [address] [place], [place] [id number] Carlota Jin MD 1 [facility], [facility] 2 [place] [phone] 02/16/2025 6:45 EDT Treatment [facility] [place] [address] [place], [place] [id number] Carlota Jin MD 1 [facility], [facility] 2 [place] [phone] 02/19/2025 6:45 EDT Treatment [facility] [place] [address] [place] [address] Carlota Jin MD 1 [facility], [facility] 2 [place] [phone] 02/21/2025 6:45 EDT Treatment [facility] [place] [address] [place], [place] [phone] Carlota Jin MD 1 [facility], [facility] 2 [place] [phone] documented as of this encounter Procedures Procedure Name Priority Date/Time Associated Diagnosis Comments HEMODIALYSIS Routine 03/01/2023 6:58 EDT ESRD (end stage renal disease) ([facility]) documented in this encounter Visit Diagnoses [...] intravenous, ONCE IN DIALYSIS, 1 dose, On Wed03/01/23 at 0715, Routine, DialysisIndications:ESRD (end stage renal disease) ([facility]),Anemia of chronic renal failure, unspecified CKD stage Given 03/01/2023 7:13 EDT 500 Units heparin injection 9,000 Units 9,000 Units, intravenous, ONCE IN DIALYSIS, 1 dose, On Wed03/01/23 at 0715, Routine, Dialysis, Now x1 bolus 4500 units to be given at the beginning of dialysis 1500 units/hour to be given over the course of dialysis (9000 units total). Stop 1 hour prior to end of treatment. To be administered per Policy [id number].Indications:ESRD (end stage renal disease) ([facility]) Given 03/01/2023 7:05 EDT 9,000 Units nepro w/ carb steady bolus 237 mL 237 mL (1 Package), oral, ONCE IN DIALYSIS, 1 dose, On Wed03/01/23 at 0715, RoutineIndications:ESRD (end stage renal disease) ([facility]),Abnormal albumin Given 03/01/2023 7:14 EDT 237 mL documented in this encounter Orders Dialysis Count Last Ordered Date First Orde red Date HEMODIALYSIS 1 03/01/2023 documented in this encounter Care Teams Machine Ii Engraver Relationship Specialty Start Date End Date Adeola Villegas APRN [address] [place] [address] PCP - General 10/12/16 07/06/23 documented as of this encounter
--- OUTSIDE RECORDS SUMMARY | 2024-12-05 12:26 | XMS_ITS | Encounter Summary ---
Author Organization [facility] Address [address] [place] [address] Care Team Providers Care Professor Of Forestry Name Role Phone Adeola Villegas APRN Primary Care Provider Encounter Details Date Type Department Care Team (Late st Contact Info) Description 03/19/2023 Documentation Visit [facility] [address] [place], [place] [phone] Yoanna Degroot, RN Social History Tobacco Use [...] [facility] [address] [place] [address] Carlota Jin MD [facility] Level [address] [place] [address] 12/08/2024 6:45 EST Treatment [facility] [address] [place] [address] Carlota Jin MD [facility], [facility] 2 [place] [phone] 12/11/2024 6:45 EST Treatment [facility] [place] [address] [place], [place] [address] Carlota Jin MD [facility], [facility] 2 [place] [phone] 12/13/2024 6:45 EST Treatment [facility] [place] [address] [place], [place] [phone] Carlota Jin MD 1 [facility], [facility] 2 [place] [phone] 12/15/2024 6:45 EST Treatment [facility] [place] [address] [place], [place] [phone] Carlota Jin MD 1 [facility], [facility] 2 [place] [phone] 12/18/2024 6:45 EST Treatment [facility] [address] [place] [address] Carlota Jin MD [address] [facility], [facility] 2 [place] [phone] 12/20/2024 6:45 EST Treatment [facility] [place] [address] [place], [place] [id number] Carlota Jin MD 1 [facility], [facility] 2 [place] [phone] 12/22/2024 6:45 EST Treatment [facility] [place] [address] [place], [place] [phone] Carlota Jin MD 1 [facility], [facility] 2 [place] [phone] 12/25/2024 6:45 EST Treatment [facility] [place] [address] [place], [place] [phone] Carlota Jin MD 1 [facility], [facility] 2 [place] [phone] 12/27/2024 6:45 EST Treatment [facility] [place] [address] [place], [place] [phone] Carlota Jin MD 1 [facility], [facility] 2 [place] [phone] 12/29/2024 6:45 EST Treatment [facility] [place] [address] [place], [place] [id number] Carlota Jin MD 1 [facility], [facility] 2 [place] [phone] 01/01/2025 6:45 EDT Treatment [facility] [place] [address] [place], [place] [id number] Carlota Jin MD 1 [facility], [facility] 2 [place] [phone] 01/03/2025 6:45 EDT Treatment [facility] [place] [address] [place], [place] [phone] Carlota Jin MD [address] [facility], Level [address] [place] [phone] 01/05/2025 6:45 EDT Treatment [facility] [place] [address] [place], [place] [address] Carlota Jin MD [address] [facility], [facility] 2 [place] [phone] 01/08/2025 6:45 EDT Treatment [facility] [place] [address] [place], [place] [address] Carlota Jin MD 1 [facility], [facility] 2 [place] [phone] 01/10/2025 6:45 EDT Treatment [facility] [place] [address] [place] [address] Carlota Jin MD 1 [facility], [facility] 2 [place] [phone] 01/12/2025 6:45 EDT Treatment [facility] [address] [place] [address] Carlota Jin MD [address] [facility], [facility] 2 [place] [phone] 01/15/2025 6:45 EDT Treatment [facility] [address] [place], [place] [address] Carlota Jin MD 1 [facility], [facility] 2 [place] [phone] 01/17/2025 6:45 EDT Treatment [facility] [place] [address] [place], [place] [phone] Carlota Jin MD 1 [facility], [facility] 2 [place] [phone] 01/19/2025 6:45 EDT Treatment [facility] [place] [address] [place], [place] [phone] Carlota Jin MD 1 [facility], [facility] 2 [place] [phone] 01/22/2025 6:45 EDT Treatment [facility] [place] [address] [place], [place] [address] Carlota Jin MD [address] [place] [address], [facility] 2 [place] [phone] 01/24/2025 6:45 EDT Treatment [facility] [place] [address] [place], [place] [phone] Carlota Jin MD 1 [facility], [facility] 2 [place] [phone] 01/26/2025 6:45 EDT Treatment [facility] [place] [address] [place], [place] [address] Carlota Jin MD 1 [facility], [facility] 2 [place] [phone] 01/29/2025 6:45 EDT Treatment [facility] [place] [address] [place], [place] [id number] Carlota Jin MD 1 [facility], [facility] 2 [place] [phone] 01/31/2025 6:45 EDT Treatment [facility] [place] [address] [place], [place] [id number] Carlota Jin MD [address] [facility], [facility] 2 [place] [phone] 02/02/2025 6:45 EDT Treatment [facility] [place] [address] [place], [place] [id number] Carlota Jin MD 1 [facility], [address] [phone] 02/05/2025 6:45 EDT Treatment [facility] [place] [address] [place], [place] [id number] Carlota Jin MD 1 [facility], [address] [phone] 02/07/2025 6:45 EDT Treatment [facility] [place] [address] [place], [place] [id number] Carlota Jin MD 1 [facility], [facility] 2 [place] [phone] 02/09/2025 6:45 EDT Treatment [facility] [place] [address] [place], [place] [id number] Carlota Jin MD 1 [facility], [facility] 2 [place] [phone] 02/12/2025 6:45 EDT Treatment [facility] [place] [address] [place], [place] [id number] Carlota Jin MD [address] [phone] 02/14/2025 6:45 EDT Treatment [facility] [place] [address] [place], [place] [id number] Carlota Jin MD [address] [place] [phone] 02/16/2025 6:45 EDT Treatment [facility] [place] [address] [place], [place] [id number] Carlota Jin MD [address] [place] [phone] 02/19/2025 6:45 EDT Treatment [facility] [place] [address] [place], [place] [id number] Carlota Jin MD [address] [place] [phone] 02/21/2025 6:45 EDT Treatment [facility] [place] [address] [place], [place] [id number] Carlota Jin MD [address] [place] [phone] documented as of this encounter Visit Diagnoses Not on filedocumented in this encounter Discontinued Medications Medication Sig Discontinue Reason Start Date End Da te hydroCHLOROthiazide (HYDRODIURIL) 25 mg tablet 25 mg. 08/18/2022 03/19/2023 sevelamer carbonate (RENVELA) 800 mg tablet TAKE 2 TABLETS BY MOUTH TWICE A DAY WITH MEALS 08/03/2022 03/19/2023 documented as of this encounter Historical Medications * This list may reflect changes made after this encounter. hydroCHLOROthiazi de (HYDRODIURIL) 25 mg tablet 25 mg. 08/18/2022 03/19/2023 sevelamer carbonate (RENVELA) 800 mg tablet TAKE 2 TABLETS BY MOUTH TWICE A DAY WITH MEALS 08/03/2022 03/19/2023 added in this encounter Care Teams Professor Of Forestry Relationship Specialty Start Date End Date Adeola Villegas APRN [address] [place] [address] PCP - General 10/12/16 07/06/23 documented as of this encounter
--- OUTSIDE RECORDS SUMMARY | 2024-12-05 12:26 | XMS_ITS | Encounter Summary ---
Author Organization [facility] Address [address] [place] [address] Care Team Providers Care Construction Project Coordinator Name Role Phone Adeola Villegas APRN Primary Care Provider [phone] Encounter Details Date Type Department Care Team (Late st Contact Info) Description 03/19/2023 Orders Only [facility] [address] [place], [place] [id number] Yoanna Degroot, RN Social History Tobacco Use [...] [facility] [address] [place] [id number] Carlota Jin MD 1 [facility], [address] [place] [phone] 12/08/2024 6:45 EST Treatment [facility] [address] [place] [address] Carlota Jin MD 1 [facility], [facility] [address] [place] [phone] 12/11/2024 6:45 EST Treatment [facility] [place] [address] [place], [place] [phone] Carlota Jin MD 1 [facility], [facility] [address] [place] [phone] 12/13/2024 6:45 EST Treatment [facility] - [place] [address] [place], [place] [phone] Carlota Jin MD 1 [facility], [facility] [address] [place] [phone] 12/15/2024 6:45 EST Treatment [facility] - [place] [address] [place], [place] [phone] Carlota Jin MD 1 [facility], [facility] [address] [place] [phone] 12/18/2024 6:45 EST Treatment [facility] [address] [place] [address] Carlota Jin MD 1 [facility], [facility] [address] [place] [phone] 12/20/2024 6:45 EST Treatment [facility] [place] [address] [place], [place] [phone] Carlota Jin MD 1 [facility], [facility] [address] [place] [phone] 12/22/2024 6:45 EST Treatment [facility] - [place] [address] [place], [place] [phone] Carlota Jin MD 1 [facility], [facility] [address] [place] [phone] 12/25/2024 6:45 EST Treatment [facility] - [place] [address] [place], [place] [phone] Carlota Jin MD 1 [facility], [facility] [address] [place] [phone] 12/27/2024 6:45 EST Treatment [facility] - [place] [address] [place], [place] [phone] Carlota Jin MD 1 [facility], [facility] [address] [place] [phone] 12/29/2024 6:45 EST Treatment [facility] - [place] [address] [place], [place] [phone] Carlota Jin MD 1 [facility], [facility] [address] [place] [phone] 01/01/2025 6:45 EDT Treatment [facility] - [place] [address] [place], [place] [phone] Carlota Jin MD 1 [facility], [facility] [address] [place] [phone] 01/03/2025 6:45 EDT Treatment [facility] - [place] [address] [place], [place] [phone] Carlota Jin MD 1 [facility], [address] [place] [phone] 01/05/2025 6:45 EDT Treatment [facility] - [place] [address] [place], [place] [address] Carlota Jin MD 1 [facility], [facility] [address] [place] [phone] 01/08/2025 6:45 EDT Treatment [facility] - [place] [address] [place], [place] [phone] Carlota Jin MD 1 [facility], [facility] [address] [place] [phone] 01/10/2025 6:45 EDT Treatment [facility] [place] [address] [place] [address] Carlota Jin MD 1 [facility], [facility] [address] [place] [phone] 01/12/2025 6:45 EDT Treatment [facility] [address] [place] [address] Carlota Jin MD 1 [facility], [facility] [address] [place] [phone] 01/15/2025 6:45 EDT Treatment [facility] [address] [place], [place] [phone] Carlota Jin MD 1 [facility], [facility] [address] [place] [phone] 01/17/2025 6:45 EDT Treatment [facility] - [place] [address] [place], [place] [phone] Carlota Jin MD 1 [facility], [facility] [address] [place] [phone] 01/19/2025 6:45 EDT Treatment [facility] - [place] [address] [place], [place] [phone] Carlota Jin MD 1 [facility], [facility] [address] [place] [phone] 01/22/2025 6:45 EDT Treatment [facility] - [place] [address] [place], [place] [phone] Carlota Jin MD [address] [place] [address], [facility] [address] [place] [phone] 01/24/2025 6:45 EDT Treatment [facility] - [place] [address] [place], [place] [phone] Carlota Jin MD 1 [facility], [facility] [address] [place] [phone] 01/26/2025 6:45 EDT Treatment [facility] - [place] [address] [place], [place] [phone] Carlota Jin MD 1 [facility], [facility] [address] [place] [phone] 01/29/2025 6:45 EDT Treatment [facility] - [place] [address] [place], [place] [phone] Carlota Jin MD 1 [facility], [facility] [address] [place] [phone] 01/31/2025 6:45 EDT Treatment [facility] - [place] [address] [place], [place] [phone] Carlota Jin MD 1 [facility], [facility] [address] [place] [phone] 02/02/2025 6:45 EDT Treatment [facility] - [place] [address] [place], [place] [phone] Carlota Jin MD 1 [facility], [address] [phone] 02/05/2025 6:45 EDT Treatment [facility] - [place] [address] [place], [place] [phone] Carlota Jin MD 1 [facility], [address] [phone] 02/07/2025 6:45 EDT Treatment [facility] - [place] [address] [place], [place] [phone] Carlota Jin MD 1 [facility], [facility] [address] [place] [phone] 02/09/2025 6:45 EDT Treatment [facility] - [place] [address] [place], [place] [phone] Carlota Jin MD 1 [facility], [facility] [address] [place] [phone] 02/12/2025 6:45 EDT Treatment [facility] - [place] [address] [place], [place] [phone] Carlota Jin MD [address] [phone] 02/14/2025 6:45 EDT Treatment [facility] - [place] [address] [place], [place] [phone] Carlota Jin MD [address] [place] [phone] 02/16/2025 6:45 EDT Treatment [facility] - [place] [address] [place], [place] [phone] Carlota Jin MD [address] [place] [phone] 02/19/2025 6:45 EDT Treatment [facility] - [place] [address] [place], [place] [phone] Carlota Jin MD [address] [place] [phone] 02/21/2025 6:45 EDT Treatment [facility] - [place] [address] [place], [place] [phone] Carlota Jin MD [address] [place] [phone] documented as of this encounter Visit Diagnoses Not on filedocumented in this encounter Discontinued Medications Medication Sig Discontinue Reason Start Date End Da te insulin detemir (LEVEMIR FLEXPEN SUBQ) Inject into the skin. Duplicate order 03/19/2023 documented as of this encounter Historical Medications * This list may reflect changes made after this encounter. LEVEMIR FLEXPEN 100 unit/mL (3 mL) injectable pen Inject 30 Units into the skin at bedtime. 01/19/2023 12/24/2023 albuterol 90 mcg/actuation inhaler 01/12/2023 09/29/2023 hydroCHLOROthiazi de (HYDRODIURIL) 25 mg tablet Stop per Dr. Jin. 03/16/2023 08/06/2023 FLOVENT HFA 110 mcg/actuation inhaler Inhale 1 Puff as directed. 03/08/2023 02/28/2024 added in this encounter Care Teams Construction Project Coordinator Relationship Specialty Start Date End Date Adeola Villegas APRN [address] [place] [address] PCP - General 10/12/16 07/06/23 documented as of this encounter
--- OUTSIDE RECORDS SUMMARY | 2024-12-05 12:26 | XMS_ITS | Encounter Summary ---
Author Organization [facility] Address [address] [place] [address] Care Team Providers Care Staff Command And Control Officer Name Role Phone Adeola Villegas MONA Primary Care Provider [phone] Encounter Details Date Type Department Care Team (Late st Contact Info) Description 03/08/2023 7:15 EDT Treatment [facility] [address] [place], [place] [phone] Carlota Jin MD 1 [facility], [address] [place] [address] ESRD (end stage renal disease) ([facility]) (Primary Dx); Anemia [...] - Temperature - - Respiratory Rate 16 03/08/2023 0705 EDT Oxygen Saturation - - Inhaled Oxygen Concentration - - Weight 90.4 kg (199 lb 4.7 oz) 03/08/2023 0705 E DT Height - - Body Mass Index 29.01 01/25/2023 0751 EDT documented in this encounter Miscellaneous Notes * Flowsheet Note - Angélica Pozo RN - 03/08/2023 1436 EDT 03/08/23 1306 Post-Hemodialysis Assessment Total Blood Processed (L) 83.7 Liters On Line Clearance: spKt/V 1.36 spKt/V Dialyzer Clearance Lightly streaked Treatment UFR (ml:kg:hr) 7.63 ml:kg:hr Critline refill Not done Fluid Removed (L) 3.14 L Post-Dialysis Scale Weight 87.8 kg (193 lb 9 oz) Wheelchair Weight 0 kg (0 lb) Prosthesis Weight 0 kg (0 lb) Post-Treatment Weight (kg) 87.8 Treatment Weight Change (kg) 2.6 kg Day Target Weight (kg) 87.4 Post Sitting/Lying BP 140/71 Post Sitting/Lying pulse 68 Post Standing BP 133/71 Post Standing Pulse 69 Temp 36.5 ??C (97.7 ??F) Temp src Skin Post access assessment AVF/AFG Hemostasis achieved Yes Note Patent. Orientation Alert and Oriented x3 Yes Cooperative Yes Disoriented No Discharge Ambulation Methods Ambulatory without assistance Wrap up items Report called to floor NA Patient Response to Treatment Noted to have leg cramps during the final 30 minutes of treatment, uneffected with NS boluses, rinsed back early with 17 minutes remaining, leg cramps resolved. Comments Stable at discharge. No other issues noted or reported. * Dialysis Comprehensive - Carlota Jin MD - 03/08/2023 0715 EDT Images from the original note were not included. 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 ESRD (end stage renal disease) ([facility]) ([facility]) ??? Essential (primary) hypertension ??? Hearing [...] is interested in pursuing a different modality: Yes Patient is a home dialysis candidate: Yes referral pending; unclear where things stand Patient Treatment Choice: Hemodialysis, Incenter Plan: Continue current modality. Interested in transplant but he is a current smoker Transplantation: Patient Had Prior Transplant: No Transplant [...] Yes Average Interdialytic Fluid Gains: InterDialytic +/- 03/03/2023 03/03/2023 03/03/2023 03/05/2023 03/05/2023 03/05/2023 03/08/2023 Gain/Loss 2.1 2.1 - 2.4 2.4 - 3.5 Wt (pre) 90.1 90.1 - 89.5 89.5 - 90.4 Wt (post) - - 87.1 - - 86.9 - Treatment UFR (ml:kg:hr) - - 8.58 - - 7.42 - BP (pre) 156/77 156/77 - 130/78 130/78 - 153/81 BP (post) 117/79 117/79 - 175/80 175/80 - 180/84 Pulse (pre) 71 71 - 71 71 - 74 Pulse(post) 70 70 - 69 69 - 74 Resp (/min) 18 - - - 16 - 16 Volume and blood pressure have been addressed with the following changes: he has had cramping in the setting of being challenged; for now, will keep current prescribed weight and will not challenge Consistently able to achieve estimated dry weight? Yes Blood pressure is in range for patient? Yes Any adverse intradialytic symptoms? Yes: cramping Plan: Managed per protocol Physical Exam Constitutional Mild distress due to cramping Respiratory: Unlabored breathing Cardiac: deferred Abdomen: soft Extremities: No edema Hospitalization Hospitalization in Previous 3 Months: No Emergency Room Visit in Previous 3 Months: Yes: 12/19/22 for COPD exacerbation Access Management Current LDAs: Hemodialysis Arteriovenous Access 02/13/19 (Active) AV Fistula Present 03/08/23727 Site Assessment Clean;Dry;Intact;Bruit heard;Thrill felt 03/08/23736 Current State Active 03/08/2337 Status Accessed 03/08/23727 Is Maturing N 03/08/23727 Local Anesthetic None 03/08/23727 Site Prep Chlorhexidine 03/08/23727 Venous Needle Size 15 G 03/08/23727 Arterial/Generic Needle Size 15 G 03/08/23727 Accessed by: Cecile Cortes 03/08/23727 Access Attempts 2 03/08/23727 Dressing Status/Care Clean/Dry/Intact 02/12/23 0743 Patient has AVF/AVG as primary access: Yes Patient has Catheter as primary access >90 days: No Home Medication Review/Update Current Outpatient Medications: ??? albuterol (ACCUNEB) 0.63 mg/3 mL nebulizer solution, Take 0.63 mg by nebulization every 4 hoursas needed for Wheezing., Disp: , Rfl: ??? amLODIPine (NORVASC) 10 [...] by mouth daily., Disp: , Rfl: ??? furosemide (LASIX) 20 mg tablet, Take 1 Tablet by mouth 2 times daily. (Patient not taking: Reported on 02/22/2023), Disp: , Rfl: ??? hydrOXYzine (ATARAX) 25 mg tablet, Take 25 mg by mouth at bedtime., Disp: , Rfl: ??? insulin detemir (LEVEMIR FLEXPEN SUBQ), Inject into the skin., Disp: , Rfl: ??? magnesium oxide (MAG-OX) [...] Hemodialysis 3 times a week Week of 03/07/2023 Routine, ONE TIME Starting when released Prescribed [...] - UF Profile: None Dialysis Last released: Wed03/08/2023 Oxygen Therapy (Age 2 yrs. to Adult) [...] released Until Discontinued, Pain, Dialysis Last released: Wed02/08/2023 diphenhydrAMINE (BENADRYL) capsule 25 mg PRN PRN [...] of treatment. To be administered per Policy [id number]. Last released: Wed03/08/2023 sodium chloride 0.9 % BOLUS 100 mL PRN PRN 100 mL, intravenous, PRN Starting when released Until Discontinued, Other, hypotension or cramping,Dialysis Last released: Never Dialysis Weekly Labs Complete Blood Count Weekly: Wed03/10/2023 Routine, ONE TIME Starting when released, Blood, Venous, Blood Results Release to Patient (Note: Choosing Manual Release will only block results from tests performed at [facility] and does not apply for Miscellaneous Test Order): Immediate via MyChart Portal Dialysis Last released: Wed03/03/2023 Dialysis Monthly Labs Dialysis Iron (Includes Iron, IBC, and Ferritin) - Nephrology Use Only On the Wed of every 1 month Wed03/29/2023 Routine, ONE TIME Starting when released, Blood, Venous, Blood Results Release to Patient (Note: Choosing Manual Release will only block results from tests performed at [facility] and does not apply for Miscellaneous Test Order): Immediate via [facility] Portal Dialysis Last released: Wed02/22/2023 Dialysis Routine- Dialysis Use Only On the Mon of every 1 month [facility] 03/29/2023 Routine, ONE TIME Starting when released, Blood, Blood, Venous Results Release to Patient (Note: Choosing Manual Release will only block results from tests performed at [facility] and does not apply for Miscellaneous Test Order): Immediate via [facility] Portal Dialysis Last released: Wed02/22/2023 Postdialysis BUN with URR Calculation On the Mon of every 1 month [facility] 03/29/2023 Routine, ONE TIME Starting when released, Blood, Blood, Venous Results Release to Patient (Note: Choosing Manual Release will only block results from tests performed at [facility] and does not apply for Miscellaneous Test Order): Immediate via [employer] Portal Dialysis Last released: Wed02/22/2023 Dialysis Quarterly Labs PTH Intact On the Mon of every 3 months [facility] 04/26/2023 Routine, ONE TIME Starting when released, Blood, Venous, Blood Results Release to Patient (Note: Choosing Manual Release will only block results from tests performed at [facility] and does not apply for Miscellaneous Test Order): Immediate via [employer] Portal Dialysis Last released: Wed01/25/2023 Dialysis Annual Labs - [facility] Hepatitis- Dialysis Use Only On the Mon of every 12 months Wed10/25/2023 Routine, ONE TIME Starting when released, Blood, Blood, Venous Results Release to Patient (Note: Choosing Manual Release will only block results from tests performed at [facility] and does not apply for Miscellaneous Test Order): Immediate via [facility] Portal Dialysis Last released: Never Folate On the 1st Mon of every 12 months Wed10/25/2023 Routine, ONE TIME Starting when released, Blood, Venous, Blood Results Release to Patient (Note: Choosing Manual Release will only block results from tests performed at [facility] and does not apply for Miscellaneous Test Order): Immediate via [facility] Portal Dialysis Last released: Never Vitamin B12 On the Mon of every 12 months Wed10/25/2023 Routine, ONE TIME Starting when released, Blood, Venous, Blood Results Release to Patient (Note: Choosing Manual Release will only block results from tests performed at [facility] and does not apply for Miscellaneous Test Order): Immediate via MyChart Portal Dialysis Last released: Never Vitamin D (25,OH) On the Wed of every 12 months Wed10/25/2023 Routine, ONE TIME Starting when released, Blood, Venous, Blood Results Release to Patient (Note: Choosing Manual Release will only block results from tests performed at [facility] and does not apply for Miscellaneous Test Order): Immediate via MyChart Portal Dialysis Last released: Never Dialysis Annual Labs - April Hepatitis C Ab w Reflex to HCV RNA by PCR On the Wed of every 12 months [facility] 04/26/2023 Routine, ONE TIME Starting when released, Blood, Venous, Blood Results Release to Patient (Note: Choosing Manual Release will only block results from tests performed at [facility] and does not apply for Miscellaneous Test Order): Immediate via MyChart Portal Dialysis Last released: Never HEMODIALYSIS [facility] [employer] Medications epoetin ken (EPOGEN) 20,000 unit/2 mL injection 500 Units Weekly: Wed, Wed03/12/2023 500 Units, intravenous, ONCE IN DIALYSIS Starting when released, Dialysis Last released: Wed03/08/2023 HEMODIALYSIS NUTRITIONAL SUPPLEMENTS Nutritional Supplements nepro w/ carb steady bolus 237 mL Every visit Every visit 237 mL (1 Package), oral, ONCE IN DIALYSIS Starting when released Last released: Wed03/08/2023 Adjustment made to dialysis medication: No Laboratory Results Dialysis Adequacy: spKt/V: 1.58 (Calculated from:; BUN Pre-Dialysis: 70 mg/dL at 02/22/2023 12:54; BUN Post-Dialysis: 19mg/dL at 02/22/2023 12:54; Pre-Treatment Weight (kg): 91.4 at 02/22/2023 7:06; Post-Treatment Weight (kg): 87.1 at 02/22/2023 11:23; Duration of Treatment (minutes): 244 minutes at 02/22/2023 11:23) Plan: Continue current dialysis prescription Anemia Management: Lab Results Component Value Date WBC 8.24 03/03/2023 HGB 10.7 (L) 03/03/2023 HGB 10.6 (L) 02/24/2023 HGB 10.4 (L) 02/17/2023 PLT 245 03/03/2023 FOLATE 17.3 11/16/2022 [id number] 11/16/2022 FERRITIN 830 (H) 02/22/2023 Current GEORGE/Dose: HEMODIALYSIS [facility]IA [employer] epoetin ken (EPOGEN) 20,000 unit/2 mL injection 500 Units 500 Units, intravenous, Weekly: Mon, Fri, ONCE IN DIALYSIS Iron Series/Maintenance: This patient [...] Results Component Value Date LABALBU 3.4 02/22/2023 ALKPHOS 94 02/22/2023 PHOS 8.8 (H) 02/22/2023 CALCIUM 8.6 02/22/2023 CALCCA 9.1 02/22/2023 PTH 239 (H) 01/25/2023 Vitamin D: cholecalciferol (Vitamin D3) - 25 mcg (1,000 unit) sevelamer hydrochloride - 800 mg This patient does not have an active medication from one of the medication groupers. Plan: Managed per protocol Potassium Management: Lab Results Component Value Date K 6.2 (H) 02/22/2023 Prescribed Potassium Concentrate: HEMODIALYSIS Ordered at: 03/08/23 0705 Dialysate concentrate: Potassium 2 mEq/L Calcium 2.5 mEq/L Last Dialysis Prescription released on: 03/08/2023 Selected bath: Potassium 2 mEq/L Calcium 2.5 mEq/L Some recent data might be hidden sevelamer hydrochloride - 800 mg Plan: Managed per protocol Nutrition: Lab Results Component Value Date LABALBU 3.4 02/22/2023 NA 133 (L) 02/22/2023 Protein Supplements: This patient does not have an active medication from one of the medication groupers. Plan: Managed per protocol Comments: No acute issues. I have asked him to hold his lasix and see if it affects his UOP. Encouraged ongoing mediation and dietary adherence. He did have cramping today but his weight was being challenged. Will leave TW as is for now with no attempts at challenging weight. Carlota Jin MD documented in this encounter Plan of Treatment Upcoming Encounters Date Type Department Care Team (Late st Contact Info) Description 12/06/2024 6:45 EST Treatment [facility] [place] [address] [place], [place] [phone] Carlota Jin MD 1 [facility], [facility] [address] [place] [phone] 12/08/2024 6:45 EST Treatment [facility] [place] [address] [place], [place] [phone] Carlota Jin MD 1 [facility], [address] [phone] 12/11/2024 6:45 EST Treatment [facility] [place] [address] [place], [place] [phone] Carlota Jin MD 1 [facility], [address] [phone] 12/13/2024 6:45 EST Treatment [facility] [place] [address] [place], [place] [phone] Carlota Jin MD 1 [facility], [address] [phone] 12/15/2024 6:45 EST Treatment [facility] [place] [address] [place], [place] [phone] Carlota Jin MD 1 [facility], [address] [phone] 12/18/2024 6:45 EST Treatment [facility] [place] [address] [place], [place] [phone] Carlota Jin MD 1 [facility], [facility] [address] [place] [phone] 12/20/2024 6:45 EST Treatment [facility] [place] [address] [place], [place] [phone] Carlota Jin MD 1 [facility], [facility] [address] [place] [phone] 12/22/2024 6:45 EST Treatment [facility] [place] [address] [place], [place] [phone] Carlota Jin MD 1 [facility], [facility] [address] [place] [phone] 12/25/2024 6:45 EST Treatment [facility] [place] [address] [place], [place] [phone] Carlota Jin MD 1 [facility], [facility] [address] [place] [phone] 12/27/2024 6:45 EST Treatment [facility] [place] [address] [place], [place] [phone] Carlota Jin MD 1 [facility], [facility] [address] [place] [phone] 12/29/2024 6:45 EST Treatment [facility] [place] [address] [place], [place] [phone] Carlota Jin MD 1 [facility], [address] [place] [phone] 01/01/2025 6:45 EDT Treatment [facility] [place] [address] [place], [place] [phone] Carlota Jin MD 1 [facility], [facility] [address] [place] [phone] 01/03/2025 6:45 EDT Treatment [facility] [place] [address] [place], [place] [phone] Carlota Jin MD 1 [facility], [facility] [address] [place] [phone] 01/05/2025 6:45 EDT Treatment [facility] [place] [address] [place], [place] [address] Carlota Jin MD 1 [facility], [facility] [address] [place] [phone] 01/08/2025 6:45 EDT Treatment [facility] [place] [address] [place] [address] Carlota Jin MD 1 [facility], [facility] [address] [place] [phone] 01/10/2025 6:45 EDT Treatment [facility] [place] [address] [place], [place] [phone] Carlota Jin MD 1 [facility], [facility] [address] [place] [phone] 01/12/2025 6:45 EDT Treatment [facility] [place] [address] [place], [place] [id number] Carlota Jin MD 1 [facility], [facility] [address] [place] [phone] 01/15/2025 6:45 EDT Treatment [facility] [place] [address] [place], [place] [phone] Carlota Jin MD 1 [facility], [facility] [address] [place] [phone] 01/17/2025 6:45 EDT Treatment [facility] [place] [address] [place], [place] [phone] Carlota Jin MD [address] [place] [address], [facility] [address] [place] [phone] 01/19/2025 6:45 EDT Treatment [facility] [place] [address] [place], [place] [phone] Carlota Jin MD [address] [place] [address], [facility] [address] [place] [phone] 01/22/2025 6:45 EDT Treatment [facility] [place] [address] [place], [place] [phone] Carlota Jin MD 1 [facility], [facility] [address] [place] [phone] 01/24/2025 6:45 EDT Treatment [facility] [place] [address] [place], [place] [phone] Carlota Jin MD 1 [facility], [facility] [address] [place] [phone] 01/26/2025 6:45 EDT Treatment [facility] [place] [address] [place], [place] [phone] Carlota Jin MD 1 [facility], [facility] [address] [place] [phone] 01/29/2025 6:45 EDT Treatment [facility] [place] [address] [place], [place] [phone] Carlota Jin MD 1 [facility], [facility] [address] [place] [phone] 01/31/2025 6:45 EDT Treatment [facility] [place] [address] [place], [place] [phone] Carlota Jin MD 1 [facility], [facility] [address] [place] [phone] 02/02/2025 6:45 EDT Treatment [facility] [address] [place], [place] [phone] Carlota Jin MD 1 [facility], [facility] [address] [place] [phone] 02/05/2025 6:45 EDT Treatment [facility] [place] [address] [place], [place] [phone] Carlota Jin MD 1 [facility], [facility] [address] [place] [phone] 02/07/2025 6:45 EDT Treatment [facility] [place] [address] [place], [place] [phone] Carlota Jin MD 1 [facility], [facility] [address] [place] [phone] 02/09/2025 6:45 EDT Treatment [facility] [place] [address] [place], [place] [phone] Carlota Jin MD 1 [facility], [facility] [address] [place] [phone] 02/12/2025 6:45 EDT Treatment [facility] [place] [address] [place], [place] [phone] Carlota Jin MD 1 [facility], [facility] [address] [place] [phone] 02/14/2025 6:45 EDT Treatment [facility] [place] [address] [place], [place] [phone] Carlota Jin MD 1 [facility], [facility] [address] [place] [phone] 02/16/2025 6:45 EDT Treatment [facility] [place] [address] [place], [place] [phone] Carlota Jin MD 1 [facility], [facility] [address] [place] [phone] 02/19/2025 6:45 EDT Treatment [facility] [place] [address] [place] [phone] Carlota Jin MD 1 [facility], Level [address] [place] [phone] 02/21/2025 6:45 EDT Treatment [facility] [place] [address] [place], [place] [phone] Carlota Jin MD 1 [facility], [address] [place] [phone] documented as of this encounter Procedures Procedure Name Priority Date/Time Associated Diagnosis Comments HEMODIALYSIS Routine 03/08/2023 7:05 EDT ESRD (end stage renal disease) ([facility]) documented in this encounter Visit Diagnoses Diagnosis ESRD (end stage renal disease) ([facility])- Primary End stage renal disease [...] intravenous, ONCE IN DIALYSIS, 1 dose, On Wed03/08/23 at 0730, Routine, DialysisIndications:ESRD (end stage renal disease) ([facility]),Anemia of chronic renal failure, unspecified CKD stage Given 03/08/2023 8:09 EDT 500 Units heparin injection 9,000 Units 9,000 Units, intravenous, ONCE IN DIALYSIS, 1 dose, On Wed03/08/23 at 0730, Routine, Dialysis, Now x1 bolus 4500 units to be given at the beginning of dialysis 1500 units/hour to be given over the course of dialysis (9000 units total). Stop 1 hour prior to end of treatment. To be administered per Policy [id number].Indications:ESRD (end stage renal disease) ([facility]) Given 03/08/2023 7:20 EDT 9,000 Units nepro w/ carb steady bolus 237 mL 237 mL (1 Package), oral, ONCE IN DIALYSIS, 1 dose, On Wed03/08/23 at 0730, RoutineIndications:ESRD (end stage renal disease) ([facility]),Abnormal albumin Given 03/08/2023 8:09 EDT 237 mL documented in this encounter Orders Dialysis Count Last Ordered Date First Orde red Date HEMODIALYSIS 1 03/08/2023 documented in this encounter Care Teams Staff Command And Control Officer Relationship Specialty Start Date End Date Adeola Villegas APRN [address] [place] [address] PCP - General 10/12/16 07/06/23 documented as of this encounter
--- OUTSIDE RECORDS SUMMARY | 2024-12-05 12:26 | XMS_ITS | Encounter Summary ---
Author Organization [facility] Address [address] [place] [address] Care Team Providers Care Diamond Powder Mixer Name Role Phone Adeola Villegas MONA Primary Care Provider [phone] Encounter Details Date Type Department Care Team (Late st Contact Info) Description 03/05/2023 7:15 EDT Treatment [facility] [address] [place], [place] [id number] Carlota Jin MD 1 [facility], Level 2 [place] [address] ESRD (end stage renal disease) ([facility]) (Primary Dx); Anemia of chronic renal [...] - Temperature - - Respiratory Rate 16 03/05/2023 0700 EDT Oxygen Saturation - - Inhaled Oxygen Concentration - - Weight 89.5 kg (197 lb 5 oz) 03/05/2023 0700 EDT Height - - Body Mass Index 28.72 01/25/2023 0751 EDT documented in this encounter Plan of Treatment Upcoming Encounters Date Type Department Care Team (Late st Contact Info) Description 12/06/2024 6:45 EST Treatment [facility] [place] [address] [place], [place] [id number] Carlota Jin MD 1 [facility], [facility] 2 [place] [phone] 12/08/2024 6:45 EST Treatment [facility] [place] [address] [place], [place] [phone] Carlota Jin MD 1 [facility], [facility] 2 [place] [phone] 12/11/2024 6:45 EST Treatment [facility] [place] [address] [place] [address] Carlota Jin MD [address] [place] [address], [address] [phone] 12/13/2024 6:45 EST Treatment [facility] [place] [address] [place], [place] [id number] Carlota Jin MD 1 [facility], [facility] 2 [place] [phone] 12/15/2024 6:45 EST Treatment [facility] [place] [address] [place], [place] [phone] Carlota Jin MD 1 [facility], [facility] 2 [place] [phone] 12/18/2024 6:45 EST Treatment [facility] [place] [address] [place], [place] [address] Carlota Jin MD 1 [facility], [facility] 2 [place] [phone] 12/20/2024 6:45 EST Treatment [facility] [place] [address] [place] [address] Carlota Jin MD 1 [facility], [address] [phone] 12/22/2024 6:45 EST Treatment [facility] [place] [address] [place], [place] [id number] Carlota Jin MD 1 [facility], [address] [phone] 12/25/2024 6:45 EST Treatment [facility] [place] [address] [place], [place] [address] Carlota Jin MD 1 [facility], [address] [phone] 12/27/2024 6:45 EST Treatment [facility] [address] [place], [place] [phone] Carlota Jin MD [address] [phone] 12/29/2024 6:45 EST Treatment [facility] [address] [place], [place] [phone] Carlota Jin MD 1 [facility], [address] [phone] 01/01/2025 6:45 EDT Treatment [facility] [place] [address] [place], [place] [id number] Carlota Jin MD 1 [facility], [facility] 2 [place] [phone] 01/03/2025 6:45 EDT Treatment [facility] [place] [address] [place], [place] [phone] Carlota Jin MD 1 [facility], [facility] 2 [place] [phone] 01/05/2025 6:45 EDT Treatment [facility] [place] [address] [place] [address] Carlota Jin MD 1 [facility], [facility] 2 [place] [phone] 01/08/2025 6:45 EDT Treatment [facility] [place] [address] [place], [place] [id number] Carlota Jin MD 1 [facility], [facility] 2 [place] [phone] 01/10/2025 6:45 EDT Treatment [facility] [place] [address] [place], [place] [phone] Carlota Jin MD 1 [facility], [facility] 2 [place] [phone] 01/12/2025 6:45 EDT Treatment [facility] [place] [address] [place], [place] [address] Carlota Jin MD 1 [facility], [facility] 2 [place] [phone] 01/15/2025 6:45 EDT Treatment [facility] [place] [address] [place], [place] [phone] Carlota Jin MD 1 [facility], [facility] 2 [place] [phone] 01/17/2025 6:45 EDT Treatment [facility] [place] [address] [place], [place] [phone] Carlota Jin MD 1 [facility], [facility] 2 [place] [phone] 01/19/2025 6:45 EDT Treatment [facility] [place] [address] [place], [place] [phone] Carlota Jin MD 1 [facility], [address] [phone] 01/22/2025 6:45 EDT Treatment [facility] [place] [address] [place], [place] [phone] Carlota Jin MD 1 [facility], [facility] 2 [place] [phone] 01/24/2025 6:45 EDT Treatment [facility] [place] [address] [place], [place] [phone] Carlota Jin MD 1 [facility] 2 [place] [phone] 01/26/2025 6:45 EDT Treatment [facility] [place] [address] [place], [place] [address] Carlota Jin MD 1 [facility], [facility] 2 [place] [phone] 01/29/2025 6:45 EDT Treatment [facility] [place] [address] [place], [place] [phone] Carlota Jin MD 1 [facility], [facility] 2 [place] [phone] 01/31/2025 6:45 EDT Treatment [facility] [place] [address] [place], [place] [phone] Carlota Jin MD 1 [facility], [facility] 2 [place] [phone] 02/02/2025 6:45 EDT Treatment [facility] [place] [address] [place] [address] Carlota Jin MD 1 [facility], [facility] 2 [place] [phone] 02/05/2025 6:45 EDT Treatment [facility] [address] [place], [place] [phone] Carlota Jin MD 1 [facility], [facility] 2 [place] [phone] 02/07/2025 6:45 EDT Treatment [facility] [place] [address] [place], [place] [phone] Carlota Jin MD 1 [facility], [facility] 2 [place] [phone] 02/09/2025 6:45 EDT Treatment [facility] [place] [address] [place], [place] [phone] Carlota Jin MD 1 [facility], [address] [phone] 02/12/2025 6:45 EDT Treatment [facility] [place] [address] [place], [place] [phone] Carlota Jin MD 1 [facility], [address] [phone] 02/14/2025 6:45 EDT Treatment [facility] [place] [address] [place], [place] [phone] Carlota Jin MD 1 [facility], [facility] 2 [place] [phone] 02/16/2025 6:45 EDT Treatment [facility] [place] [address] [place], [place] [address] Carlota Jin MD 1 [facility], [facility] 2 [place] [phone] 02/19/2025 6:45 EDT Treatment [facility] [place] [address] [place], [place] [phone] Carlota Jin MD 1 [facility], Level 2 [place] [phone] 02/21/2025 6:45 EDT Treatment [facility] [place] [address] [place] [address] Carlota Jin MD 1 [facility], Level [address] [place] [phone] documented as of this encounter Procedures Procedure Name Priority Date/Time Associated Diagnosis Comments HEMODIALYSIS Routine 03/05/2023 7:00 EDT ESRD (end stage renal disease) ([facility]) documented in this encounter Visit Diagnoses Diagnosis ESRD (end stage renal disease) ([facility])- Primary End stage renal disease Anemia [...] intravenous, ONCE IN DIALYSIS, 1 dose, On Wed03/05/23 at 0730, Routine, DialysisIndications:ESRD (end stage renal disease) ([facility]),Anemia of chronic renal failure, unspecified CKD stage Given 03/05/2023 7:52 EDT 500 Units heparin injection 9,000 Units 9,000 Units, intravenous, ONCE IN DIALYSIS, 1 dose, On Wed03/05/23 at 0730, Routine, Dialysis, Now x1 bolus 4500 units to be given at the beginning of dialysis 1500 units/hour to be given over the course of dialysis (9000 units total). Stop 1 hour prior to end of treatment. To be administered per Policy [id number].Indications:ESRD (end stage renal disease) ([facility]) Given 03/05/2023 7:12 EDT 9,000 Units nepro w/ carb steady bolus 237 mL 237 mL (1 Package), oral, ONCE IN DIALYSIS, 1 dose, On Wed03/05/23 at 0730, RoutineIndications:ESRD (end stage renal disease) ([facility]),Abnormal albumin Given 03/05/2023 7:52 EDT 237 mL documented in this encounter Orders Dialysis Count Last Ordered Date First Orde red Date HEMODIALYSIS 1 03/05/2023 documented in this encounter Care Teams Diamond Powder Mixer Relationship Specialty Start Date End Date Adeola Villegas APRN [address] [place] [address] PCP - General 10/12/16 07/06/23 documented as of this encounter
--- OUTSIDE RECORDS SUMMARY | 2024-12-05 12:26 | XMS_ITS | Encounter Summary ---
Author Organization [facility] Address [address] [place] [address] Care Team Providers Care Want Ad Clerk Name Role Phone Adeola Villegas MONA Primary Care Provider [phone] Encounter Details Date Type Department Care Team (Late st Contact Info) Description 03/03/2023 7:15 EDT Treatment [facility] [address] [place] [phone] Carlota Jin MD 1 [facility] Level 2 [place] [address] ESRD (end stage renal disease) ([facility]) (Primary Dx); Abnormal albumin Social History [...] - Temperature - - Respiratory Rate 18 03/03/2023 0658 EDT Oxygen Saturation - - Inhaled Oxygen Concentration - - Weight 90.1 kg (198 lb 10.2 oz) 03/03/2023 0658 EDT Height - - Body Mass Index 28.91 01/25/2023 0751 EDT documented in this encounter Miscellaneous Notes * Flowsheet Note - Melissa Crespo RN - 03/03/2023 1421 EDT 03/03/23 1115 Post-Hemodialysis Assessment Total Blood Processed (L) 88.65 Liters On Line Clearance: spKt/V 1.42 spKt/V Dialyzer Clearance Lightly streaked Treatment UFR (ml:kg:hr) 8.58 ml:kg:hr Final Critline Profile (%/hr) -2.64 Final Profile Profile A Critline refill Positive (H1 36.1 - H2 35.6) Fluid Removed (L) 3 L Post-Dialysis Scale Weight 87.1 kg (192 lb 0.3 oz) Wheelchair Weight 0 kg (0 lb) Prosthesis Weight 0 kg (0 lb) Post-Treatment Weight (kg) 87.1 Treatment Weight Change (kg) 3 kg Day Target Weight (kg) 87.6 Post Sitting/Lying BP 130/71 Post Sitting/Lying pulse 62 Post Standing BP 113/76 Post Standing Pulse 71 Temp 36.4 ??C [...] Dialysis Rounding - Skye Gomez NP - 03/03/2023 0715 EDT Dialysis Provider's Routine Assessment Gerson Becky Julioaleks was seen and examined as appropriate during Dialysis. Pertinent lab results were reviewed. Changes since last visit: None Changes to current prescriptions/orders: None Tolerating dialysis well. Skye Gomez NP documented in this encounter Plan of Treatment Upcoming Encounters Date Type Department Care Team (Late st Contact Info) Description 12/06/2024 6:45 EST Treatment [facility] [place] [address] [place], [place] [address] Carlota Jin MD 1 [facility] 2 [place] [phone] 12/08/2024 6:45 EST Treatment [facility] [place] [address] [place] [address] Carlota Jin MD 1 [facility], [facility] 2 [place] [phone] 12/11/2024 6:45 EST Treatment [facility] [place] [address] [place], [place] [phone] Carlota Jin MD 1 [facility], [facility] 2 [place] [phone] 12/13/2024 6:45 EST Treatment [facility] [place] [address] [place], [place] [address] Carlota Jin MD 1 [facility], [address] [phone] 12/15/2024 6:45 EST Treatment [facility] [address] [place], [place] [phone] Carlota Jin MD 1 [facility], [facility] 2 [place] [phone] 12/18/2024 6:45 EST Treatment [facility] [place] [address] [place], [place] [address] Carlota Jin MD 1 [facility], [facility] 2 [place] [phone] 12/20/2024 6:45 EST Treatment [facility] [place] [address] [place], [place] [phone] Carlota Jin MD 1 [facility], Level [address] [place] [phone] 12/22/2024 6:45 EST Treatment [facility] [place] [address] [place] [address] Carlota Jin MD 1 [facility], [facility] 2 [place] [phone] 12/25/2024 6:45 EST Treatment [facility] [place] [address] [place] [address] Carlota Jin MD 1 [facility], [facility] 2 [place] [phone] 12/27/2024 6:45 EST Treatment [facility] [place] [address] [place] [address] Carlota Jin MD 1 [facility], Level [address] [place] [phone] 12/29/2024 6:45 EST Treatment [facility] [place] [address] [place], [place] [address] Carlota Jin MD 1 [facility], Level [address] [place] [phone] 01/01/2025 6:45 EDT Treatment [facility] [place] [address] [place], [place] [address] Carlota Jin MD 1 [facility], [address] [phone] 01/03/2025 6:45 EDT Treatment [facility] [place] [address] [place] [address] Carlota Jin MD 1 [facility], [address] [phone] 01/05/2025 6:45 EDT Treatment [facility] [place] [address] [place], [place] [id number] Carlota Jin MD 1 [facility], [address] [phone] 01/08/2025 6:45 EDT Treatment [facility] [place] [address] [place], [place] [phone] Carlota Jin MD 1 [facility], [address] [phone] 01/10/2025 6:45 EDT Treatment [facility] [place] [address] [place], [place] [address] Carlota Jin MD 1 [facility], [address] [phone] 01/12/2025 6:45 EDT Treatment [facility] [place] [address] [place], [place] [phone] Carlota Jin MD 1 [facility], [facility] 2 [place] [phone] 01/15/2025 6:45 EDT Treatment [facility] [place] [address] [place], [place] [id number] Carlota Jin MD 1 [facility], [facility] 2 [place] [phone] 01/17/2025 6:45 EDT Treatment [facility] [place] [address] [place], [place] [phone] Carlota Jin MD 1 [facility], [address] [phone] 01/19/2025 6:45 EDT Treatment [facility] [place] [address] [place], [place] [id number] Carlota Jin MD [address] [place] [address], [address] [phone] 01/22/2025 6:45 EDT Treatment [facility] [place] [address] [place], [place] [address] Carlota Jin MD 1 [facility], [facility] 2 [place] [phone] 01/24/2025 6:45 EDT Treatment [facility] [place] [address] [place], [place] [address] Carlota Jin MD 1 [facility], [facility] 2 [place] [phone] 01/26/2025 6:45 EDT Treatment [facility] [place] [address] [place], [place] [address] Carlota Jin MD 1 [facility], [facility] 2 [place] [phone] 01/29/2025 6:45 EDT Treatment [facility] [place] [address] [place], [place] [address] Carlota Jin MD 1 [facility], [facility] 2 [place] [phone] 01/31/2025 6:45 EDT Treatment [facility] [place] [address] [place], [place] [address] Carlota Jin MD 1 [facility], [address] [phone] 02/02/2025 6:45 EDT Treatment [facility] [place] [address] [place], [place] [address] Carlota Jin MD 1 [facility], [address] [phone] 02/05/2025 6:45 EDT Treatment [facility] [place] [address] [place], [place] [address] Carlota Jin MD 1 [facility], [facility] 2 [place] [phone] 02/07/2025 6:45 EDT Treatment [facility] [place] [address] [place], [place] [address] Carlota Jin MD 1 [facility], Level [address] [place] [phone] 02/09/2025 6:45 EDT Treatment [facility] [place] [address] [place], [place] [address] Carlota Jin MD 1 [facility], [facility] 2 [place] [phone] 02/12/2025 6:45 EDT Treatment [facility] [place] [address] [place], [place] [address] Carlota Jin MD 1 [facility], [facility] 2 [place] [phone] 02/14/2025 6:45 EDT Treatment [facility] [place] [address] [place], [place] [address] Carlota Jin MD 1 [facility], [facility] 2 [place] [phone] 02/16/2025 6:45 EDT Treatment [facility] [place] [address] [place] [address] Carlota Jin MD 1 [facility], [facility] 2 [place] [phone] 02/19/2025 6:45 EDT Treatment [facility] [place] [address] [place], [place] [address] Carlota Jin MD 1 [facility], [facility] 2 [place] [phone] 02/21/2025 6:45 EDT Treatment [facility] [place] [address] [place] [address] Carlota Jin MD 1 [facility], Level [address] [place] [phone] documented as of this encounter Procedures Procedure Name Priority Date/Time Associated Diagnosis Comments COMPLETE BLOOD COUNT Routine 03/03/2023 7:17 EDT ESRD (end stage renal disease) ([facility]) HEMODIALYSIS Routine 03/03/2023 6:59 EDT ESRD (end stage renal disease) ([facility]) documented in this encounter Results * (ABNORMAL) COMPLETE BLOOD COUNT (03/03/2023 7:17 EDT) WBC 8.24 4.00 - 10.40 K/cmm 03/03/2023 21:08 [facility] RBC 3.41(L) 4.36 - 5.78 M/cmm 03/03/2023 21:08 [facility] Hemoglobin 10.7(L) 13.8 - 17.3 gm/dL 03/03/2023 21:08 [facility] HCT 32.5(L) 39.5 - 50.2 % 03/03/2023 21:08 [facility] MCV 95 81 - 95 fl 03/03/2023 21:08 [facility] MCH 31.4 27.6 - 33.0 pg 03/03/2023 21:08 [facility] MCHC 32.9 32.8 - 36.4 gm/dL 03/03/2023 21:08 [facility] RDW-CV 12.5 <14.2 % 03/03/2023 21:08 [facility] RDW-SD 43.4 <46.0 fl 03/03/2023 21:08 [facility] PLT 245 141 - 377 K/cmm 03/03/2023 21:08 EDT [facility] MPV 11.7 9.5 - 12.7 fl 03/03/2023 21:08 EDT [facility] Blood VENOUS BLOOD / Unknown Venipuncture / Unknown 03/03/2023 7:17 EDT 03/03/2023 7:17 EDT us Carlota Jin MD HEMATOLOGY & PF4 ORDERABL ES Final Result [facility] [address] [place] [address] documented in this encounter Visit Diagnoses Diagnosis ESRD (end stage renal disease) ([facility])- Primary End stage renal disease Abnormal albumin Other nonspecific findings on examination of blood documented in this encounter Administered Medications Inactive Administered Medications - up to 3 most recent administrations Medication Order MAR Action Action Date Dose Rate Site heparin injection 9,000 Units 9,000 Units, intravenous, ONCE IN DIALYSIS, 1 dose, On Wed03/03/23 at 0715, Routine, Dialysis, Now x1 bolus 4500 units to be given at the beginning of dialysis 1500 units/hour to be given over the course of dialysis (9000 units total). Stop 1 hour prior to end of treatment. To be administered per Policy [id number].Indications:ESRD (end stage renal disease) ([facility]) Given 03/03/2023 7:11 EDT 9,000 Units nepro w/ carb steady bolus 237 mL 237 mL (1 Package), oral, ONCE IN DIALYSIS, 1 dose, On Wed03/03/23 at 0715, RoutineIndications:ESRD (end stage renal disease) ([facility]),Abnormal albumin Given 03/03/2023 7:41 EDT 237 mL documented in this encounter Orders Dialysis Count Last Ordered Date First Orde red Date HEMODIALYSIS 1 03/03/2023 documented in this encounter Care Teams Want Ad Clerk Relationship Specialty Start Date End Date Adeola Villegas APRN [address] [place] [address] PCP - General 10/12/16 07/06/23 documented as of this encounter
--- OUTSIDE RECORDS SUMMARY | 2024-12-05 12:26 | XMS_ITS | Encounter Summary ---
Author Organization [facility] Address [address] [place] [address] Care Team Providers Care Buddhist Monk Name Role Phone Adeola Villegas MONA Primary Care Provider [phone] Encounter Details Date Type Department Care Team (Late st Contact Info) Description 03/19/2023 7:[address] [facility] [address] [place] [id number] Carlota Jin MD 1 [facility], Level [address] [place] [address] ESRD (end stage renal disease) ([facility]) (Primary Dx); Anemia of chronic renal [...] - Temperature - - Respiratory Rate 16 03/19/2023 0707 EDT Oxygen Saturation - - Inhaled Oxygen Concentration - - Weight 89.9 kg (198 lb 3.1 oz) 03/19/2023 0707 E DT Height - - Body Mass Index 28.85 01/25/2023 0751 EDT documented in this encounter Miscellaneous Notes * Flowsheet Note - Melissa Crespo RN - 03/19/2023 7779 EDT 03/19/23 1112 Post-Hemodialysis Assessment Total Blood Processed (L) 86.71 Liters On Line Clearance: spKt/V 1.44 spKt/V Dialyzer Clearance Lightly streaked Treatment UFR (ml:kg:hr) 7.03 ml:kg:hr Fluid Removed (L) 2.4 L Post-Dialysis Scale Weight 87.5 kg (192 lb 14.4 oz) Wheelchair Weight 0 kg (0 lb) Prosthesis Weight 0 kg (0 lb) Post-Treatment Weight (kg) 87.5 Treatment Weight Change (kg) 2.4 kg Day Target Weight (kg) 88 Post Sitting/Lying BP 158/81 Post Sitting/Lying pulse 67 Post Standing BP 110/73 Post Standing Pulse 81 Temp 36.7 ??C (98.1 ??F) Temp src [...] 6:45 EST Treatment [facility] [address] [place] [id number] Carlota Jin MD 1 [facility], [facility] [address] [place] [address] 12/08/2024 6:45 EST Treatment [facility] [address] [place] [id number] Carlota Jin MD 1 [facility], [facility] [address] [place] [address] 12/11/2024 6:45 EST Treatment [facility] [place] [address] [place], [place] [id number] Carlota Jin MD 1 [facility], [facility] [address] [place] [phone] 12/13/2024 6:45 EST Treatment [facility] [place] [address] [place], [place] [id number] Carlota Jin MD 1 [facility], [facility] [address] [place] [phone] 12/15/2024 6:45 EST Treatment [facility] [address] [place], [place] [id number] Carlota Jin MD 1 [facility], [facility] [address] [place] [phone] 12/18/2024 6:45 EST Treatment [facility] [address] [place], [place] [id number] Carlota Jin MD 1 [facility], [facility] [address] [place] [phone] 12/20/2024 6:45 EST Treatment [facility] [place] [address] [place], [place] [id number] Carlota Jin MD 1 [facility], [facility] [address] [place] [phone] 12/22/2024 6:45 EST Treatment [facility] [address] [place], [place] [id number] Carlota Jin MD 1 [facility], [facility] [address] [place] [phone] 12/25/2024 6:45 EST Treatment [facility] [place] [address] [place] [address] Carlota Jin MD 1 [facility], [facility] [address] [place] [phone] 12/27/2024 6:45 EST Treatment [facility] [place] [address] [place] [address] Carlota Jin MD 1 [facility], [facility] [address] [place] [phone] 12/29/2024 6:45 EST Treatment [facility] [place] [address] [place], [place] [id number] Carlota Jin MD 1 [facility], [address] [phone] 01/01/2025 6:45 EDT Treatment [facility] [place] [address] [place] [address] Carlota Jin MD 1 [facility], [facility] [address] [place] [phone] 01/03/2025 6:45 EDT Treatment [facility] [place] [address] [place], [place] [id number] Carlota Jin MD 1 [facility], [facility] [address] [place] [phone] 01/05/2025 6:45 EDT Treatment [facility] [place] [address] [place], [place] [id number] Carlota Jin MD 1 [facility], [facility] [address] [place] [phone] 01/08/2025 6:45 EDT Treatment [facility] [place] [address] [place], [place] [id number] Carlota Jin MD [address] [place] [address], [facility] [address] [place] [phone] 01/10/2025 6:45 EDT Treatment [facility] [place] [address] [place], [place] [id number] Carlota Jin MD [address] [place] [address], [facility] [address] [place] [phone] 01/12/2025 6:45 EDT Treatment [facility] [place] [address] [place] [id number] Carlota Jin MD [address] [place] [address], [facility] [address] [place] [phone] 01/15/2025 6:45 EDT Treatment [facility] [place] [address] [place], [place] [id number] Carlota Jin MD 1 [facility], [facility] [address] [place] [phone] 01/17/2025 6:45 EDT Treatment [facility] [place] [address] [place], [place] [id number] Carlota Jin MD 1 [facility], [address] [phone] 01/19/2025 6:45 EDT Treatment [facility] [place] [address] [place], [place] [id number] Carlota Jin MD 1 [facility], [address] [phone] 01/22/2025 6:45 EDT Treatment [facility] [place] [address] [place], [place] [id number] Carlota Jin MD 1 [facility], [address] [phone] 01/24/2025 6:45 EDT Treatment [facility] [place] [address] [place], [place] [id number] Carlota Jin MD [address] [phone] 01/26/2025 6:45 EDT Treatment [facility] [place] [address] [place], [place] [id number] Carlota Jin MD [address] [phone] 01/29/2025 6:45 EDT Treatment [facility] [place] [address] [place], [place] [id number] Carlota Jin MD 1 [facility], [address] [phone] 01/31/2025 6:45 EDT Treatment [facility] [place] [address] [place], [place] [id number] Carlota Jin MD 1 [facility], [facility] [address] [place] [phone] 02/02/2025 6:45 EDT Treatment [facility] [place] [address] [place], [place] [id number] Carlota Jin MD 1 [facility], [facility] [address] [place] [phone] 02/05/2025 6:45 EDT Treatment [facility] [place] [address] [place], [place] [id number] Carlota Jin MD 1 [facility], [address] [phone] 02/07/2025 6:45 EDT Treatment [facility] [place] [address] [place] [address] Carlota Jin MD 1 [facility], [facility] [address] [place] [phone] 02/09/2025 6:45 EDT Treatment [facility] [place] [address] [place], [place] [id number] Carlota Jin MD 1 [facility], [facility] [address] [place] [phone] 02/12/2025 6:45 EDT Treatment [facility] [place] [address] [place], [place] [id number] Carlota Jin MD [address] [phone] 02/14/2025 6:45 EDT Treatment [facility] [place] [address] [place], [place] [id number] Carlota Jin MD [address] [place] [phone] 02/16/2025 6:45 EDT Treatment [facility] [place] [address] [place], [place] [id number] Carlota Jin MD [address] [place] [phone] 02/19/2025 6:45 EDT Treatment [facility] [place] [address] [place], [place] [id number] Carlota Jin MD [address] [place] [phone] 02/21/2025 6:45 EDT Treatment [facility] [place] [address] [place], [place] [id number] Carlota Jin MD [address] [place] [phone] documented as of this encounter Procedures Procedure Name Priority Date/Time Associated Diagnosis Comments HEMODIALYSIS Routine 03/19/2023 7:07 EDT ESRD (end stage renal disease) (ST. [...] intravenous, ONCE IN DIALYSIS, 1 dose, On Wed03/19/23 at 0730, Routine, DialysisIndications:ESRD (end stage renal disease) ([facility]),Anemia of chronic renal failure, unspecified CKD stage Given 03/19/2023 8:17 EDT 500 Units heparin injection 9,000 Units 9,000 Units, intravenous, ONCE IN DIALYSIS, 1 dose, On Wed03/19/23 at 0730, Routine, Dialysis, Now x1 bolus 4500 units to be given at the beginning of dialysis 1500 units/hour to be given over the course of dialysis (9000 units total). Stop 1 hour prior to end of treatment. To be administered per Policy [id number].Indications:ESRD (end stage renal disease) ([facility]) Given 03/19/2023 7:18 EDT 9,000 Units nepro w/ carb steady bolus 237 mL 237 mL (1 Package), oral, ONCE IN DIALYSIS, 1 dose, On Wed03/19/23 at 0730, RoutineIndications:ESRD (end stage renal disease) ([facility]),Abnormal albumin Given 03/19/2023 8:17 EDT 237 mL documented in this encounter Orders Dialysis Count Last Ordered Date First Orde red Date HEMODIALYSIS 1 03/19/2023 documented in this encounter Care Teams Buddhist Monk Relationship Specialty Start Date End Date Adeola Villegas APRN [address] [place] [address] PCP - General 10/12/16 07/06/23 documented as of this encounter
--- OUTSIDE RECORDS SUMMARY | 2024-12-05 12:26 | XMS_ITS | Encounter Summary ---
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 SW will continue to offer services and support to pt, at this time no needs are noted by the pt. Current Living Situation: Lives with family and Lives with friends Lives with family Pt lives with his , Hoda, in their apartment in [place]. He rents the apartment and has a [...] Is patient eligible to complete the PHQ-9: SW will administer at 90 day POC Date patient last offered the PHQ-9: n/a KDQOL: KDQOL survey completion status: SW will administer at 90 day POC Reason for not completing KDQOL: See above Financial/Insurance: Patient has Insurance: Yes Pay[place] / Plan[place] / Product Type: [place] / Prescription Coverage: Yes Changes in insurance coverage since last assessment: No, pt reports that there may be loss of coverage. 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 Education: Highest level of education: high [...] EST Treatment [facility] [place] [address] [place], [place] [id number] Carlota Jin MD 1 [facility], [facility] 2 [place] [phone] 12/08/2024 6:45 EST Treatment [facility] [place] [address] [place], [place] [id number] Carlota Jin MD 1 [facility], [address] [phone] 12/11/2024 6:45 EST Treatment [facility] [address] [place], [place] [id number] Carlota Jin MD [address] [place] [address], [address] [phone] 12/13/2024 6:45 EST Treatment [facility] [address] [place], [place] [id number] Carlota Jin MD [address] [place] [address], [facility] [address] [place] [phone] 12/15/2024 6:45 EST Treatment [facility] [place] [address] [place], [place] [id number] Carlota Jin MD 1 [facility], [facility] 2 [place] [phone] 12/18/2024 6:45 EST Treatment [facility] [address] [place], [place] [id number] Carlota Jin MD 1 [facility], [facility] [address] [place] [phone] 12/20/2024 6:45 EST Treatment [facility] [place] [address] [place], [place] [id number] Carlota Jin MD 1 [facility], [facility] 2 [place] [phone] 12/22/2024 6:45 EST Treatment [facility] [place] [address] [place], [place] [id number] Carlota Jin MD 1 [facility], [facility] [address] [place] [phone] 12/25/2024 6:45 EST Treatment [facility] [place] [address] [place] [address] Carlota Jin MD 1 [facility], [facility] [address] [place] [phone] 12/27/2024 6:45 EST Treatment [facility] [place] [address] [place], [place] [id number] Carlota Jin MD 1 [facility], [facility] [address] [place] [phone] 12/29/2024 6:45 EST Treatment [facility] [place] [address] [place], [place] [id number] Carlota Jin MD 1 [facility], [facility] 2 [place] [phone] 01/01/2025 6:45 EDT Treatment [facility] [place] [address] [place], [place] [id number] Carlota Jin MD 1 [facility], [facility] [address] [place] [phone] 01/03/2025 6:45 EDT Treatment [facility] [place] [address] [place], [place] [id number] Carlota Jin MD 1 [facility], [facility] [address] [place] [phone] 01/05/2025 6:45 EDT Treatment [facility] [place] [address] [place] [address] Carlota Jin MD [address] [place] [address], [address] [phone] 01/08/2025 6:45 EDT Treatment [facility] [place] [address] [place], [place] [id number] Carlota Jin MD 1 [facility], [facility] [address] [place] [phone] 01/10/2025 6:45 EDT Treatment [facility] [place] [address] [place], [place] [id number] Carlota Jin MD 1 [facility], [facility] [address] [place] [phone] 01/12/2025 6:45 EDT Treatment [facility] [place] [address] [place] [address] Carlota Jin MD 1 [facility], [facility] [address] [place] [phone] 01/15/2025 6:45 EDT Treatment [facility] [place] [address] [place] [address] Carlota Jin MD 1 [facility], [facility] [address] [place] [phone] 01/17/2025 6:45 EDT Treatment [facility] [place] [address] [place] [address] Carlota Jin MD 1 [facility], [address] [phone] 01/19/2025 6:45 EDT Treatment [facility] [place] [address] [place] [address] Carlota Jin MD 1 [facility], [address] [phone] 01/22/2025 6:45 EDT Treatment [facility] [place] [address] [place] [address] Carlota Jin MD 1 [facility], [facility] [address] [place] [phone] 01/24/2025 6:45 EDT Treatment [facility] [place] [address] [place], [place] [id number] Carlota Jin MD 1 [facility], [facility] [address] [place] [phone] 01/26/2025 6:45 EDT Treatment [facility] [place] [address] [place], [place] [id number] Carlota Jin MD 1 [facility], [facility] [address] [place] [phone] 01/29/2025 6:45 EDT Treatment [facility] [place] [address] [place], [place] [id number] Carlota Jin MD 1 [facility], [facility] [address] [place] [phone] 01/31/2025 6:45 EDT Treatment [facility] [place] [address] [place], [place] [id number] Carlota Jin MD 1 [facility], [facility] [address] [place] [phone] 02/02/2025 6:45 EDT Treatment [facility] [place] [address] [place] [address] Carlota Jin MD [address] [place] [address], [facility] [address] [place] [phone] 02/05/2025 6:45 EDT Treatment [facility] [place] [address] [place], [place] [id number] Carlota Jin MD 1 [facility], [facility] [address] [place] [phone] 02/07/2025 6:45 EDT Treatment [facility] [place] [address] [place], [place] [address] Carlota Jin MD 1 [facility], [address] [phone] 02/09/2025 6:45 EDT Treatment [facility] [place] [address] [place], [place] [id number] Carlota Jin MD 1 [facility], [address] [phone] 02/12/2025 6:45 EDT Treatment [facility] [place] [address] [place], [place] [id number] Carlota Jin MD 1 [facility], [address] [phone] 02/14/2025 6:45 EDT Treatment [facility] [place] [address] [place], [place] [id number] Carlota Jin MD [address] [phone] 02/16/2025 6:45 EDT Treatment [facility] [place] [address] [place], [place] [id number] Carlota Jin MD [address] [phone] 02/19/2025 6:45 EDT Treatment [facility] [place] [address] [place], [place] [id number] Carlota Jin MD 1 [facility], [address] [phone] 02/21/2025 6:45 EDT Treatment [facility] [address] [place], [place] [id number] Carlota Jin MD 1 [facility], Level [address] [place] [phone] documented as of this encounter Visit Diagnoses Not on filedocumented in this encounter Care Teams High School Principal Relationship Specialty Start Date End Date Adeola Villegas APRN [address] [facility] 1 [place], [place] [id number] PCP - General 10/12/16 07/06/23 documented as of this encounter
--- OUTSIDE RECORDS SUMMARY | 2024-12-05 12:26 | XMS_ITS | Encounter Summary ---
Author Organization [facility] Address [address] [place] [address] Care Team Providers Care Surgery Assistant Name Role Phone Adeola Villegas MONA Primary Care Provider [phone] Encounter Details Date Type Department Care Team (Late st Contact Info) Description 03/15/2023 7:15 EDT Treatment [facility] [address] [place] [id number] Carlota Jin MD 1 [facility], Level 2 [place] [address] ESRD (end stage renal disease) ([facility]) (Primary Dx); Anemia of [...] - Temperature - - Respiratory Rate 16 03/15/2023 0701 EDT Oxygen Saturation - - Inhaled Oxygen Concentration - - Weight 90.9 kg (200 lb 6.4 oz) 03/15/2023 0701 E DT Height - - Body Mass Index 29.17 01/25/2023 0751 EDT documented in this encounter Miscellaneous Notes * Flowsheet Note - Melissa Crespo RN - 03/15/2023 1537 EDT 03/15/23 1114 Post-Hemodialysis Assessment Total Blood Processed (L) 88.32 Liters On Line Clearance: spKt/V 1.44 spKt/V Dialyzer Clearance Lightly streaked Treatment UFR (ml:kg:hr) 7.65 ml:kg:hr Critline refill Not done Fluid Removed (L) 2.99 L Post-Dialysis Scale Weight 88.2 kg (194 lb 7.1 oz) Wheelchair Weight 0 kg (0 lb) Prosthesis Weight 0 kg (0 lb) Post-Treatment Weight (kg) 88.2 Treatment Weight Change (kg) 2.7 kg Day Target Weight (kg) 88 Post Sitting/Lying BP (!) 152/98 Post Sitting/Lying pulse 72 Post Standing BP 103/70 Post Standing Pulse 74 Temp 36.5 ??C (97.7 ??F) Temp src Temporal Post access assessment AVF/AFG Hemostasis achieved Yes Note 12 min hold Orientation Alert and Oriented x3 Yes Cooperative Yes Disoriented No Discharge Ambulation Methods Ambulatory without assistance Wrap up items Patient Response to Treatment Had a large headache mid tx, so UF goal decreased accordingly. Tylenol given as requested. Removed 3000 / 3400 UF goal. Comments Stable upon DC from unit. No concerns voiced post tx. documented in this encounter Plan of Treatment Upcoming Encounters Date Type Department Care Team (Late st Contact Info) Description 12/06/2024 6:45 EST Treatment [facility] [place] [address] [place], [place] [id number] Carlota Jin MD 1 [facility], Level [address] [place] [address] 12/08/2024 6:45 EST Treatment [facility] [address] [place] [id number] Carlota Jin MD 1 [facility], Level [address] [place] [phone] 12/11/2024 6:45 EST Treatment [facility] [place] [address] [place], [place] [address] Carlota Jin MD 1 [facility], [facility] 2 [place] [phone] 12/13/2024 6:45 EST Treatment [facility] [place] [address] [place], [place] [id number] Carlota Jin MD 1 [facility], [facility] 2 [place] [phone] 12/15/2024 6:45 EST Treatment [facility] [place] [address] [place], [place] [id number] Carlota Jin MD 1 [facility], [facility] 2 [place] [phone] 12/18/2024 6:45 EST Treatment [facility] [place] [address] [place] [address] Carlota Jin MD 1 [facility], [facility] 2 [place] [phone] 12/20/2024 6:45 EST Treatment [facility] [place] [address] [place], [place] [id number] Carlota Jin MD 1 [facility], [facility] 2 [place] [phone] 12/22/2024 6:45 EST Treatment [facility] [place] [address] [place], [place] [id number] Carlota Jin MD 1 [facility], [facility] 2 [place] [phone] 12/25/2024 6:45 EST Treatment [facility] [place] [address] [place], [place] [id number] Carlota Jin MD 1 [facility], [facility] 2 [place] [phone] 12/27/2024 6:45 EST Treatment [facility] [place] [address] [place], [place] [phone] Carlota Jin MD 1 [facility], [facility] 2 [place] [phone] 12/29/2024 6:45 EST Treatment [facility] [place] [address] [place], [place] [id number] Carlota Jin MD 1 [facility], [facility] 2 [place] [phone] 01/01/2025 6:45 EDT Treatment [facility] [place] [address] [place], [place] [id number] Carlota Jin MD 1 [facility], [facility] 2 [place] [phone] 01/03/2025 6:45 EDT Treatment [facility] [place] [address] [place], [place] [id number] Carlota Jin MD 1 [facility], [facility] 2 [place] [phone] 01/05/2025 6:45 EDT Treatment [facility] [place] [address] [place], [place] [id number] Carlota Jin MD 1 [facility], [facility] 2 [place] [phone] 01/08/2025 6:45 EDT Treatment [facility] [place] [address] [place], [place] [id number] Carlota Jin MD 1 [facility], [facility] 2 [place] [phone] 01/10/2025 6:45 EDT Treatment [facility] [place] [address] [place] [address] [address] [facility], [facility] 2 [place] [phone] 01/12/2025 6:45 EDT Treatment [facility] [place] [address] [place] [address] [address] MD 1 [facility], [facility] 2 [place] [phone] 01/15/2025 6:45 EDT Treatment [facility] [place] [address] [place], [place] [id number] Carlota Jin MD 1 [facility], [facility] 2 [place] [phone] 01/17/2025 6:45 EDT Treatment [facility] [place] [address] [place], [place] [id number] Carlota Jin MD 1 [facility], [facility] 2 [place] [phone] 01/19/2025 6:45 EDT Treatment [facility] [place] [address] [place], [place] [id number] Carlota Jin MD 1 [facility], [facility] 2 [place] [phone] 01/22/2025 6:45 EDT Treatment [facility] [place] [address] [place] [address] [address] MD 1 [facility], [address] [phone] 01/24/2025 6:45 EDT Treatment [facility] [place] [address] [place], [place] [id number] Carlota Jin MD 1 [facility], [facility] 2 [place] [phone] 01/26/2025 6:45 EDT Treatment [facility] [place] [address] [place], [place] [id number] Carlota Jin MD 1 [facility], [facility] 2 [place] [phone] 01/29/2025 6:45 EDT Treatment [facility] [place] [address] [place] [address] [address] MD 1 [facility], [facility] 2 [place] [phone] 01/31/2025 6:45 EDT Treatment [facility] [place] [address] [place] [address] Carlota Jin MD 1 [facility], [facility] 2 [place] [phone] 02/02/2025 6:45 EDT Treatment [facility] [place] [address] [place] [address] [address] MD 1 [facility], [address] [phone] 02/05/2025 6:45 EDT Treatment [facility] [place] [address] [place] [address] Carlota Jin MD 1 [facility], [address] [phone] 02/07/2025 6:45 EDT Treatment [facility] [place] [address] [place] [address] [address] Jin MD 1 [facility], [facility] 2 [place] [phone] 02/09/2025 6:45 EDT Treatment [facility] [place] [address] [place], [place] [phone] Carlota Jin MD 1 [facility], [facility] 2 [place] [phone] 02/12/2025 6:45 EDT Treatment [facility] [place] [address] [place], [place] [phone] Carlota Jin MD 1 [facility], [address] [phone] 02/14/2025 6:45 EDT Treatment [facility] [address] [place], [place] [phone] Carlota Jin MD [address] [place] [address], [address] [phone] 02/16/2025 6:45 EDT Treatment [facility] [address] [place], [place] [phone] Carlota Jin MD 1 [facility], [address] [phone] 02/19/2025 6:45 EDT Treatment [facility] [place] [address] [place], [place] [phone] Carlota Jin MD [address] [place] [address], [address] [phone] 02/21/2025 6:45 EDT Treatment [facility] [address] [place], [place] [phone] Carlota Jin MD 1 [facility], [address] [phone] documented as of this encounter Procedures Procedure Name Priority Date/Time Associated Diagnosis Comments HEMODIALYSIS Routine 03/15/2023 7:01 EDT ESRD (end stage renal disease) ([facility]) documented in this encounter Visit Diagnoses Diagnosis ESRD (end stage renal disease) ([facility])- Primary End stage renal disease Anemia of chronic renal failure, unspecified CKD stage Abnormal albumin Other nonspecific findings on examination of blood documented in this encounter Administered Medications Inactive Administered Medications - up to 3 most recent administrations Medication Order MAR Action Action Date Dose Rate Site acetaminophen (TYLENOL) tablet 650 mg 650 mg, oral, EVERY 4 HOURS PRN, Starting on Wed03/15/23 at 0954, Until Wed03/15/23 at 1738, Pain, Routine, DialysisIndications:ESRD (end stage renal disease) ([facility]) Given 03/15/2023 9:55 EDT 650 mg epoetin ken (EPOGEN) 20,000 unit/2 mL injection 500 Units 500 Units, intravenous, ONCE IN DIALYSIS, 1 dose, On Wed03/15/23 at 0730, Routine, DialysisIndications:ESRD (end stage renal disease) ([facility]),Anemia of chronic renal failure, unspecified CKD stage Given 03/15/2023 7:28 EDT 500 Units heparin injection 9,000 Units 9,000 Units, intravenous, ONCE IN DIALYSIS, 1 dose, On Wed03/15/23 at 0730, Routine, Dialysis, Now x1 bolus 4500 units to be given at the beginning of dialysis 1500 units/hour to be given over the course of dialysis (9000 units total). Stop 1 hour prior to end of treatment. To be administered per Policy [id number].Indications:ESRD (end stage renal disease) ([facility]) Given 03/15/2023 7:11 EDT 9,000 Units nepro w/ carb steady bolus 237 mL 237 mL (1 Package), oral, ONCE IN DIALYSIS, 1 dose, On Wed03/15/23 at 0730, RoutineIndications:ESRD (end stage renal disease) ([facility]),Abnormal albumin Given 03/15/2023 7:28 EDT 237 mL documented in this encounter Orders Dialysis Count Last Ordered Date First Orde red Date HEMODIALYSIS 1 03/15/2023 documented in this encounter Care Teams Surgery Assistant Relationship Specialty Start Date End Date Adeola Villegas APRN [address] [place] [address] PCP - General 10/12/16 07/06/23 documented as of this encounter
--- OUTSIDE RECORDS SUMMARY | 2024-12-05 12:27 | XMS_ITS | Encounter Summary ---
Author Organization [facility] Address [address] [place] [address] Care Team Providers Care Skein Yarn Drier Name Role Phone Adeola Villegas APRN Primary Care Provider [phone] Encounter Details Date Type Department Care Team (Late st Contact Info) Description 02/25/2023 Documentation Visit [facility] Dialysis - [facility] Doctor[facility] Common [address] [place] [address] Shelley [place], ADITI [address] [place] [address] Social History Tobacco Use Types Packs/Day Years [...] Info) Description 12/06/2024 6:45 EST Treatment [facility] [place] [address] [place] [id number] [facility] MD [facility] Level [address] [place] [phone] 12/08/2024 6:45 EST Treatment [facility] [place] [address] [place] [phone] Carl[facility] Jin MD [facility], [facility] 2 [place] [phone] 12/11/2024 6:45 EST Treatment [facility] - [place] [address] [place], [place] [phone] Carlota Jin MD 1 [facility], [facility] 2 [place] [phone] 12/13/2024 6:45 EST Treatment [facility] [place] [address] [place] [address] Carlota Jin MD 1 [facility], [facility] 2 [place] [phone] 12/15/2024 6:45 EST Treatment [facility] [place] [address] [place], [place] [phone] Carlota Jin MD 1 [facility], [facility] 2 [place] [phone] 12/18/2024 6:45 EST Treatment [facility] [address] [place], [place] [phone] Carlota Jin MD 1 [facility], [facility] 2 [place] [phone] 12/20/2024 6:45 EST Treatment [facility] - [place] [address] [place], [place] [phone] Carlota Jin MD 1 [facility], [facility] 2 [place] [phone] 12/22/2024 6:45 EST Treatment [facility] [place] [address] [place], [place] [id number] Carlota Jin MD 1 [facility], [facility] 2 [place] [phone] 12/25/2024 6:45 EST Treatment [facility] [place] [address] [place], [place] [phone] Carlota Jin MD 1 [facility], [facility] 2 [place] [phone] 12/27/2024 6:45 EST Treatment [facility] [place] [address] [place], [place] [id number] Carlota Jin MD 1 [facility], [facility] 2 [place] [phone] 12/29/2024 6:45 EST Treatment [facility] [place] [address] [place], [place] [phone] Carlota Jin MD 1 [facility], [facility] 2 [place] [phone] 01/01/2025 6:45 EDT Treatment [facility] [place] [address] [place], [place] [phone] Carlota Jin MD 1 [facility], [facility] 2 [place] [phone] 01/03/2025 6:45 EDT Treatment [facility] [place] [address] [place] [address] Carlota Jin MD 1 [facility], [facility] 2 [place] [phone] 01/05/2025 6:45 EDT Treatment [facility] [place] [address] [place] [address] Carlota Jin MD 1 [facility], [facility] 2 [place] [phone] 01/08/2025 6:45 EDT Treatment [facility] [place] [address] [place] [address] Carlota Jin MD 1 [facility], [address] [phone] 01/10/2025 6:45 EDT Treatment [facility] [place] [address] [place] [address] Carlota Jin MD 1 [facility], [address] [phone] 01/12/2025 6:45 EDT Treatment [facility] [place] [address] [place] [address] Carlota Jin MD 1 [facility], [facility] 2 [place] [phone] 01/15/2025 6:45 EDT Treatment [facility] [place] [address] [place], [place] [phone] Carlota Jin MD 1 [facility], [facility] 2 [place] [phone] 01/17/2025 6:45 EDT Treatment [facility] [place] [address] [place], [place] [address] Carlota Jin MD 1 [facility], [facility] 2 [place] [phone] 01/19/2025 6:45 EDT Treatment [facility] - [place] [address] [place], [place] [phone] Carlota Jin MD 1 [facility], [facility] 2 [place] [phone] 01/22/2025 6:45 EDT Treatment [facility] [place] [address] [place], [place] [address] Carlota Jin MD 1 [facility], [facility] 2 [place] [phone] 01/24/2025 6:45 EDT Treatment [facility] [place] [address] [place], [place] [address] Carlota Jin MD 1 [facility], [facility] 2 [place] [phone] 01/26/2025 6:45 EDT Treatment [facility] [place] [address] [place], [place] [phone] Carlota Jin MD 1 [facility], [facility] 2 [place] [phone] 01/29/2025 6:45 EDT Treatment [facility] [place] [address] [place], [place] [address] Carlota Jin MD 1 [facility], [address] [phone] 01/31/2025 6:45 EDT Treatment [facility] - [place] [address] [place], [place] [phone] Carlota Jin MD 1 [facility], [address] [phone] 02/02/2025 6:45 EDT Treatment [facility] - [place] [address] [place], [place] [id number] Carlota Jin MD 1 [facility], [address] [phone] 02/05/2025 6:45 EDT Treatment [facility] - [place] [address] [place], [place] [phone] Carlota Jin MD [address] [phone] 02/07/2025 6:45 EDT Treatment [facility] - [place] [address] [place], [place] [phone] Carlota Jin MD [address] [phone] 02/09/2025 6:45 EDT Treatment [facility] - [place] [address] [place], [place] [id number] Carlota Jin MD 1 [facility], [address] [phone] 02/12/2025 6:45 EDT Treatment [facility] - [place] [address] [place], [place] [id number] Carlota Jin MD 1 [facility], [address] [phone] 02/14/2025 6:45 EDT Treatment [facility] - [place] [address] [place], [place] [phone] Carlota Jin MD 1 [facility], [address] [phone] 02/16/2025 6:45 EDT Treatment [facility] - [place] [address] [place], [place] [phone] Carlota Jin MD [address] [phone] 02/19/2025 6:45 EDT Treatment [facility] [place] [address] [place] [address] Carlota Jin MD 1 [facility], [address] [phone] 02/21/2025 6:45 EDT Treatment [facility] [place] [address] [place], [place] [phone] Carlota Jin MD 1 [facility], [address] [phone] documented as of this encounter Visit Diagnoses Not on filedocumented in this encounter Care Teams Skein Yarn Drier Relationship Specialty Start Date End Date Adeola Villegas APRN [address] [place] [address] PCP - General 10/12/16 07/06/23 documented as of this encounter
--- OUTSIDE RECORDS SUMMARY | 2024-12-05 12:27 | XMS_ITS | Encounter Summary ---
Author Organization [facility] Address [address] [place] [address] Care Team Providers Care Manager Access Name Role Phone Adeola Villegas MONA Primary Care Provider [phone] Encounter Details Date Type Department Care Team (Late st Contact Info) Description 02/15/2023 7:15 EDT Treatment [facility] [address] [place], [place] [id number] Carlota Jin MD 1 [facility], Level 2 [place] [address] ESRD (end stage renal disease) ([facility]) (Primary Dx); Anemia [...] - Temperature - - Respiratory Rate 16 02/15/2023 0656 EDT Oxygen Saturation - - Inhaled Oxygen Concentration - - Weight 93 kg (205 lb 0.4 oz) 02/15/2023 0656 EDT Height - - Body Mass Index 29.84 01/25/2023 0751 EDT documented in this encounter Miscellaneous Notes * Flowsheet Note - Marcela Cox RN - 02/15/2023 1152 EDT 02/15/23 1112 Post-Hemodialysis Assessment Total Blood Processed (L) 88.44 Liters On Line Clearance: spKt/V 1.35 spKt/V Dialyzer Clearance Lightly streaked Treatment UFR (ml:kg:hr) 12.31 ml:kg:hr Critline refill Not done Fluid Removed (L) 4.5 L Post-Dialysis Scale Weight 88.6 kg (195 lb 5.2 oz) Wheelchair Weight 0 kg (0 lb) Prosthesis Weight 0 kg (0 lb) Post-Treatment Weight (kg) 88.6 Treatment Weight Change (kg) 4.4 kg Day Target Weight (kg) 89 Post Sitting/Lying BP 133/72 Post Sitting/Lying pulse 64 Post Standing BP 125/63 Post Standing Pulse 73 Temp 36.5 ??C [...] 6:[address] [facility] [address] [place], [place] [id number] Carlota Jin MD [address] [place] [phone] 12/08/2024 6:[address] [facility] [address] [place], [place] [address] Carlota Jin MD [address] [place] [address] 2 [place] [phone] 12/11/2024 6:[address] [facility] [place] [address] [place], [place] [id number] Carlota Jin MD 1 [facility], [facility] 2 [place] [phone] 12/13/2024 6:[address] [facility] [place] [address] [place], [place] [id number] Carlota Jin MD 1 [facility], [facility] 2 [place] [phone] 12/15/2024 6:[address] [facility] [place] [address] [place], [place] [id number] [phone] Carlota Jin MD 1 [facility], [facility] 2 [place] [phone] 12/18/2024 6:[address] [facility] [place] [address] [place] [id number] Carlota Jin MD 1 [facility], [facility] 2 [place] [phone] 12/20/2024 6:[address] [facility] - [place] [address] [place], [place] [id number] Carlota Jin MD 1 [facility], Level [address] [place] [phone] 12/22/2024 6:[address] [facility] [place] [address] [place], [place] [id number] Carlota Jin MD 1 [facility], [address] [phone] 12/25/2024 6:[address] [facility] [place] [address] [place] [id number] Carlota Jin MD 1 [facility], [address] [phone] 12/27/2024 6:[address] [facility] [place] [address] [place], [place] [id number] Carlota Jin MD 1 [facility], [address] [phone] 12/29/2024 6:[address] [facility] [address] [place] [id number] Carlota Jin MD 1 [facility], [address] [phone] 01/01/2025 6:[address] [facility] [address] [place], [place] [id number] Carlota Jin MD [address] [phone] 01/03/2025 6:[address] [facility] [place] [address] [place], [place] [id number] Carlota Jin MD 1 [facility], [address] [phone] 01/05/2025 6:[address] [facility] [place] [address] [place], [place] [id number] Carlota Jin MD 1 [facility], [facility] 2 [place] [phone] 01/08/2025 6:[address] [facility] [place] [address] [place], [place] [id number] Carlota Jin MD 1 [facility], [address] [phone] 01/10/2025 6:[address] [facility] [place] [address] [place], [place] [id number] Carlota Jin MD 1 [facility], [facility] 2 [place] [phone] 01/12/2025 6:[address] [facility] [place] [address] [place], [place] [id number] Carlota Jin MD 1 [facility], [facility] 2 [place] [phone] 01/15/2025 6:[address] [facility] [place] [address] [place], [place] [id number] Carlota Jin MD 1 [facility], [facility] 2 [place] [phone] 01/17/2025 6:[address] [facility] [place] [address] [place], [place] [id number] Carlota Jin MD 1 [facility], [facility] 2 [place] [phone] 01/19/2025 6:[address] [facility] [place] [address] [place], [place] [id number] Carlota Jin MD 1 [facility], [address] [phone] 01/22/2025 6:[address] [facility] [place] [address] [place], [place] [id number] Carlota Jin MD 1 [facility], [address] [phone] 01/24/2025 6:[address] [facility] [place] [address] [place], [place] [id number] Carlota Jin MD 1 [facility], [address] [phone] 01/26/2025 6:[address] [facility] [place] [address] [place], [place] [id number] Carlota Jin MD 1 [facility], [facility] 2 [place] [phone] 01/29/2025 6:[address] [facility] [place] [address] [place], [place] [id number] Carlota Jin MD 1 [facility], [facility] 2 [place] [phone] 01/31/2025 6:[address] [facility] [place] [address] [place], [place] [id number] Carlota Jin MD 1 [facility], [facility] 2 [place] [phone] 02/02/2025 6:[address] [facility] [place] [address] [place], [place] [id number] Carlota Jin MD 1 [facility], [facility] 2 [place] [phone] 02/05/2025 6:[address] [facility] [place] [address] [place], [place] [id number] Carlota Jin MD 1 [facility], [facility] 2 [place] [phone] 02/07/2025 6:[address] [facility] [place] [address] [place] [id number] Carlota Jin MD 1 [facility], [facility] 2 [place] [phone] 02/09/2025 6:[address] [facility] [place] [address] [place], [place] [id number] Carlota Jin MD 1 [facility], [facility] 2 [place] [phone] 02/12/2025 6:[address] [facility] [place] [address] [place], [place] [id number] Carlota Jin MD 1 [facility], [address] [phone] 02/14/2025 6:[address] [facility] [place] [address] [place], [place] [id number] Carlota Jin MD [address] [phone] 02/16/2025 6:[address] [facility] [place] [address] [place], [place] [id number] Carlota Jin MD 1 [facility], [address] [phone] 02/19/2025 6:[address] [facility] [place] [address] [place], [place] [id number] Carlota Jin MD [address] [phone] 02/21/2025 6:[address] [facility] [place] [address] [place], [place] [id number] Carlota Jin MD [address] [phone] documented as of this encounter Procedures Procedure Name Priority Date/Time Associated Diagnosis Comments HEMODIALYSIS Routine 02/15/2023 6:56 EDT ESRD ([facility] stage [facility] disease) ([facility] [...] intravenous, ONCE IN DIALYSIS, 1 dose, On Wed02/15/23 at 0715, Routine, DialysisIndications:ESRD (end stage renal disease) ([facility]),Anemia of chronic renal failure, unspecified CKD stage Given 02/15/2023 7:27 EDT 500 Units heparin injection 9,000 Units 9,000 Units, intravenous, ONCE IN DIALYSIS, 1 dose, On Wed02/15/23 at 0715, Routine, Dialysis, Now x1 bolus 4500 units to be given at the beginning of dialysis 1500 units/hour to be given over the course of dialysis (9000 units total). Stop 1 hour prior to end of treatment. To be administered per Policy [id number].Indications:ESRD (end stage renal disease) ([facility]) Given 02/15/2023 7:10 EDT 9,000 Units nepro w/ carb steady bolus 237 mL 237 mL (1 Package), oral, ONCE IN DIALYSIS, 1 dose, On Wed02/15/23 at 0715, RoutineIndications:ESRD (end stage renal disease) ([facility]),Abnormal albumin Given 02/15/2023 7:27 EDT 237 mL documented in this encounter Orders Dialysis Count Last Ordered Date First Orde red Date HEMODIALYSIS 1 02/15/2023 documented in this encounter Care Teams Manager Access Relationship Specialty Start Date End Date Adeola Villegas APRN [address] [place] [address] PCP - General 10/12/16 07/06/23 documented as of this encounter
--- OUTSIDE RECORDS SUMMARY | 2024-12-05 12:27 | XMS_ITS | Encounter Summary ---
Author Organization [facility] Address [address] [place] [address] Care Team Providers Care Project Manager Retail Name Role Phone Adeola Villegas APRN Primary Care Provider [phone] Encounter Details Date Type Department Care Team (Late st Contact Info) Description 02/24/2023 7:15 EDT Treatment [facility] [address] [place], [place] [id number] Carlota Jin MD 1 [facility], Level [address] [place] [address] ESRD (end stage renal disease) ([facility]) (Primary Dx); Abnormal albumin Social History [...] - Temperature - - Respiratory Rate 16 02/24/2023 0658 EDT Oxygen Saturation - - Inhaled Oxygen Concentration - - Weight 89.7 kg (197 lb 12 oz) 02/24/2023 0658 ED T Height - - Body Mass Index 28.78 01/25/2023 0751 EDT documented in this encounter Miscellaneous Notes * Flowsheet Note - Melissa Crespo RN - 02/24/2023 1745 EDT 02/24/23 1119 Post-Hemodialysis Assessment Total Blood Processed (L) 89.83 Liters On Line Clearance: spKt/V 1.42 spKt/V Dialyzer Clearance Lightly streaked Treatment UFR (ml:kg:hr) 8.41 ml:kg:hr Fluid Removed (L) 3 L Post-Dialysis Scale Weight 88.1 kg (194 lb 3.6 oz) Wheelchair Weight 0 kg (0 lb) Prosthesis Weight 1.4 kg (3 lb 1.4 oz) Post-Treatment Weight (kg) 86.7 Treatment Weight Change (kg) 3 kg Day Target Weight (kg) 87.2 Post Sitting/Lying BP 153/79 Post Sitting/Lying pulse 57 Post Standing BP 140/56 Post Standing Pulse 78 Temp 36.5 ??C [...] Info) Description 12/06/2024 6:45 EST Treatment [facility] [address] [place], [place] [id number] Carlota Jin MD [address] [place] [address], [facility] 2 [place] [phone] 12/08/2024 6:45 EST Treatment [facility] [address] [place] [id number] Carlota Jin MD [address] [place] [address], [facility] 2 [place] [phone] 12/11/2024 6:45 EST Treatment [facility] [place] [address] [place], [place] [id number] Carlota Jin MD 1 [facility], [facility] 2 [place] [phone] 12/13/2024 6:45 EST Treatment [facility] [place] [address] [place], [place] [id number] Carlota Jin MD 1 [facility], [facility] 2 [place] [phone] 12/15/2024 6:45 EST Treatment [facility] [address] [place] [id number] Carlota Jin MD [address] [place] [address], [facility] 2 [place] [phone] 12/18/2024 6:45 EST Treatment [facility] [address] [place], [place] [id number] Carlota Jin MD 1 [facility], [facility] 2 [place] [phone] 12/20/2024 6:45 EST Treatment [facility] [address] [place], [place] [id number] Carlota Jin MD 1 [facility], [facility] 2 [place] [phone] 12/22/2024 6:45 EST Treatment [facility] [address] [place], [place] [id number] Carlota Jin MD 1 [facility], [facility] 2 [place] [phone] 12/25/2024 6:45 EST Treatment [facility] [place] [address] [place], [place] [id number] Carlota Jin MD 1 [facility], [facility] 2 [place] [phone] 12/27/2024 6:45 EST Treatment [facility] [place] [address] [place], [place] [id number] Carlota Jin MD 1 [facility], [facility] 2 [place] [phone] 12/29/2024 6:45 EST Treatment [facility] [place] [address] [place], [place] [id number] Carlota Jin MD 1 [facility], [facility] 2 [place] [phone] 01/01/2025 6:45 EDT Treatment [facility] [place] [address] [place], [place] [id number] Carlota Jin MD 1 [facility], [facility] 2 [place] [phone] 01/03/2025 6:45 EDT Treatment [facility] [place] [address] [place], [place] [id number] Carlota Jin MD 1 [facility], [facility] 2 [place] [phone] 01/05/2025 6:45 EDT Treatment [facility] [place] [address] [place], [place] [id number] Carlota Jin MD 1 [facility], [facility] 2 [place] [phone] 01/08/2025 6:45 EDT Treatment [facility] [place] [address] [place], [place] [id number] Carlota Jin MD 1 [facility], [facility] 2 [place] [phone] 01/10/2025 6:45 EDT Treatment [facility] [place] [address] [place], [place] [id number] Carlota Jin MD 1 [facility], [address] [phone] 01/12/2025 6:45 EDT Treatment [facility] [place] [address] [place], [place] [id number] Carlota Jin MD 1 [facility], [facility] 2 [place] [phone] 01/15/2025 6:45 EDT Treatment [facility] [place] [address] [place], [place] [id number] Carlota Jin MD 1 [facility], [facility] 2 [place] [phone] 01/17/2025 6:45 EDT Treatment [facility] [place] [address] [place], [place] [id number] Carlota Jin MD 1 [facility], [facility] 2 [place] [phone] 01/19/2025 6:45 EDT Treatment [facility] [place] [address] [place] [address] Carlota Jin MD 1 [facility], [facility] 2 [place] [phone] 01/22/2025 6:45 EDT Treatment [facility] [place] [address] [place], [place] [id number] Carlota Jin MD 1 [facility], [facility] 2 [place] [phone] 01/24/2025 6:45 EDT Treatment [facility] [place] [address] [place], [place] [id number] Carlota Jin MD 1 [facility], [facility] 2 [place] [phone] 01/26/2025 6:45 EDT Treatment [facility] [place] [address] [place], [place] [id number] Carlota Jin MD 1 [facility], [facility] 2 [place] [phone] 01/29/2025 6:45 EDT Treatment [facility] [place] [address] [place], [place] [id number] Carlota Jin MD 1 [facility], [facility] 2 [place] [phone] 01/31/2025 6:45 EDT Treatment [facility] [place] [address] [place], [place] [id number] Carlota Jin MD 1 [facility], [facility] 2 [place] [phone] 02/02/2025 6:45 EDT Treatment [facility] [place] [address] [place], [place] [id number] Carlota Jin MD 1 [facility], [facility] 2 [place] [phone] 02/05/2025 6:45 EDT Treatment [facility] [address] [place], [place] [id number] Carlota Jin MD [address] [place] [address], [address] [phone] 02/07/2025 6:45 EDT Treatment [facility] [address] [place], [place] [id number] Carlota Jin MD [address] [place] [address], [facility] 2 [place] [phone] 02/09/2025 6:45 EDT Treatment [facility] [address] [place], [place] [id number] Carlota Jin MD 1 [facility], [facility] 2 [place] [phone] 02/12/2025 6:45 EDT Treatment [facility] [place] [address] [place], [place] [id number] Carlota Jin MD 1 [facility], [facility] 2 [place] [phone] 02/14/2025 6:45 EDT Treatment [facility] [place] [address] [place], [place] [id number] Carlota Jin MD 1 [facility], [address] [phone] 02/16/2025 6:45 EDT Treatment [facility] [place] [address] [place], [place] [id number] Carlota Jin MD 1 [facility], [address] [phone] 02/19/2025 6:45 EDT Treatment [facility] [place] [address] [place], [place] [id number] Carlota Jin MD 1 [facility], [address] [phone] 02/21/2025 6:45 EDT Treatment [facility] [place] [address] [place], [place] [id number] Carlota Jin MD [address] [phone] documented as of this encounter Procedures Procedure Name Priority Date/Time Associated Diagnosis Comments COMPLETE BLOOD COUNT Routine 02/24/2023 7:04 EDT ESRD (end stage renal disease) ([facility]) HEMODIALYSIS Routine 02/24/2023 6:58 EDT ESRD (end stage renal disease) ([facility]) documented in this encounter Results * (ABNORMAL) COMPLETE BLOOD COUNT (02/24/2023 7:04 EDT) WBC 6.91 4.00 - 10.40 K/cmm 02/24/2023 21:32 T [facility] RBC 3.29(L) 4.36 - 5.78 M/cmm 02/24/2023 21:32 [facility] Hemoglobin 10.6(L) 13.8 - 17.3 gm/dL 02/24/2023 21:32 [facility] HCT 31.4(L) 39.5 - 50.2 % 02/24/2023 21:32 [facility] MCV 95 81 - 95 fl 02/24/2023 21:32 [facility] MCH 32.2 27.6 - 33.0 pg 02/24/2023 21:32 [facility] MCHC 33.8 32.8 - 36.4 gm/dL 02/24/2023 21:32 [facility] RDW-CV 12.5 <14.2 % 02/24/2023 21:32 [facility] RDW-SD 43.4 <46.0 fl 02/24/2023 21:32 [facility] PLT 251 141 - 377 K/cmm 02/24/2023 21:32 [facility] MPV 11.7 9.5 - 12.7 fl 02/24/2023 21:32 [facility] Blood VENOUS BLOOD / Unknown Venipuncture / Unknown 02/24/2023 7:04 EDT 02/24/2023 7:04 EDT us Carlota Jin MD HEMATOLOGY & PF4 ORDERABL ES Final Result [facility] [address] [place] [address] documented in this encounter Visit Diagnoses Diagnosis ESRD (end stage renal disease) ([facility])- Primary End stage renal disease Abnormal albumin Other nonspecific findings on examination of blood documented in this encounter Administered Medications Inactive Administered Medications - up to 3 most recent administrations Medication Order MAR Action Action Date Dose Rate Site heparin injection 9,000 Units 9,000 Units, intravenous, ONCE IN DIALYSIS, 1 dose, On Wed02/24/23 at 0715, Routine, Dialysis, Now x1 bolus 4500 units to be given at the beginning of dialysis 1500 units/hour to be given over the course of dialysis (9000 units total). Stop 1 hour prior to end of treatment. To be administered per Policy [id number].Indications:ESRD (end stage renal disease) ([facility]) Given 02/24/2023 7:12 EDT 9,000 Units nepro w/ carb steady bolus 237 mL 237 mL (1 Package), oral, ONCE IN DIALYSIS, 1 dose, On Wed02/24/23 at 0715, RoutineIndications:ESRD (end stage renal disease) ([facility]),Abnormal albumin Given 02/24/2023 7:57 EDT 237 mL documented in this encounter Orders Dialysis Count Last Ordered Date First Orde red Date HEMODIALYSIS 1 02/24/2023 documented in this encounter Care Teams Project Manager Retail Relationship Specialty Start Date End Date Adeola Villegas APRN [address] [place] [address] PCP - General 10/12/16 07/06/23 documented as of this encounter
--- OUTSIDE RECORDS SUMMARY | 2024-12-05 12:27 | XMS_ITS | Encounter Summary ---
Author Organization [facility] Address [address] [place] [address] Care Team Providers Care Cabinetmaker Maintenance Name Role Phone Adeola Villegas MONA Primary Care Provider [phone] Encounter Details Date Type Department Care Team (Late st Contact Info) Description 02/22/2023 7:15 EDT Treatment [facility] [address] [place] [id number] Carlota Jin MD 1 [facility], Level 2 [place] [address] ESRD (end stage renal disease) ([facility]) (Primary Dx); Anemia of chronic renal [...] - Temperature - - Respiratory Rate 16 02/22/2023 0706 EDT Oxygen Saturation - - Inhaled Oxygen Concentration - - Weight 91.4 kg (201 lb 8 oz) 02/22/2023 0706 EDT Height - - Body Mass Index 29.33 01/25/2023 0751 EDT documented in this encounter Miscellaneous Notes * Flowsheet Note - Melissa Crespo RN - 02/22/2023 1357 EDT 02/22/23 1123 Post-Hemodialysis Assessment Total Blood Processed (L) 89.9 Liters On Line Clearance: spKt/V 1.43 spKt/V Dialyzer Clearance Lightly streaked Treatment UFR (ml:kg:hr) 12.14 ml:kg:hr Fluid Removed (L) 4 L Post-Dialysis Scale Weight 87.1 kg (192 lb 0.3 oz) Wheelchair Weight 0 kg (0 lb) Prosthesis Weight 0 kg (0 lb) Post-Treatment Weight (kg) 87.1 Treatment Weight Change (kg) 4.3 kg Day Target Weight (kg) 87.9 Post Sitting/Lying BP 140/75 Post Sitting/Lying pulse 65 Post Standing BP 118/48 Post Standing Pulse 76 Temp 36.6 ??C [...] Dialysis Rounding - Carlota Jin MD - 02/22/2023 0728 EDT Dialysis Provider's Routine Assessment Gerson Becky Bruner was seen and examined as appropriate during Dialysis. Pertinent lab results were reviewed. Changes since last visit: None Changes to current prescriptions/orders: I have asked him to stop his Lasix and let me know if he thinks it makes a difference. No acute issues. Carlota Jin MD documented in this encounter Plan of Treatment Upcoming Encounters Date Type Department Care Team (Late st Contact Info) Description 12/06/2024 6:45 EST Treatment [facility] [place] [address] [place], [place] [phone] Carlota Jin MD 1 [facility], [facility] [address] [place] [phone] 12/08/2024 6:45 EST Treatment [facility] [place] [address] [place], [place] [phone] Carlota Jin MD 1 [facility], [facility] [address] [place] [phone] 12/11/2024 6:45 EST Treatment [facility] [place] [address] [place] [address] Carlota Jin MD 1 [facility], [facility] [address] [place] [phone] 12/13/2024 6:45 EST Treatment [facility] [place] [address] [place], [place] [phone] Carlota Jin MD 1 [facility], [address] [phone] 12/15/2024 6:45 EST Treatment [facility] [place] [address] [place] [address] Carlota Jin MD 1 [facility], [facility] [address] [place] [phone] 12/18/2024 6:45 EST Treatment [facility] [place] [address] [place], [place] [phone] Carlota Jin MD 1 [facility], [facility] [address] [place] [phone] 12/20/2024 6:45 EST Treatment [facility] [place] [address] [place], [place] [phone] Carlota Jin MD 1 [facility], [facility] [address] [place] [phone] 12/22/2024 6:45 EST Treatment [facility] [place] [address] [place], [place] [phone] Carlota Jin MD 1 [facility], [facility] [address] [place] [phone] 12/25/2024 6:45 EST Treatment [facility] [place] [address] [place], [place] [id number] Carlota Jin MD 1 [facility], [facility] [address] [place] [phone] 12/27/2024 6:45 EST Treatment [facility] [place] [address] [place], [place] [address] Carlota Jin MD 1 [facility], [facility] [address] [place] [phone] 12/29/2024 6:45 EST Treatment [facility] [place] [address] [place], [place] [id number] Carlota Jin MD 1 [facility], [facility] [address] [place] [phone] 01/01/2025 6:45 EDT Treatment [facility] [place] [address] [place], [place] [phone] Carlota Jin MD 1 [facility], [facility] [address] [place] [phone] 01/03/2025 6:45 EDT Treatment [facility] [place] [address] [place] [address] Carl[address] MD 1 [facility], [address] [phone] 01/05/2025 6:45 EDT Treatment [facility] [place] [address] [place], [place] [phone] Carlota Jin MD 1 [facility], [address] [phone] 01/08/2025 6:45 EDT Treatment [facility] [place] [address] [place], [place] [phone] Carlota Jin MD 1 [facility], [address] [phone] 01/10/2025 6:45 EDT Treatment [facility] [place] [address] [place], [place] [id number] Carlota Jin MD 1 [facility], [facility] [address] [place] [phone] 01/12/2025 6:45 EDT Treatment [facility] [place] [address] [place], [place] [id number] Carlota Jin MD 1 [facility], [facility] [address] [place] [phone] 01/15/2025 6:45 EDT Treatment [facility] [place] [address] [place], [place] [phone] Carlota Jin MD 1 [facility], [facility] [address] [place] [phone] 01/17/2025 6:45 EDT Treatment [facility] [place] [address] [place], [place] [phone] Carlota Jin MD 1 [facility], [facility] [address] [place] [phone] 01/19/2025 6:45 EDT Treatment [facility] [place] [address] [place] [address] Carl[address] MD [address] [facility], [address] [phone] 01/22/2025 6:45 EDT Treatment [facility] [place] [address] [place], [place] [phone] Carlota Jin MD 1 [facility], [facility] [address] [place] [phone] 01/24/2025 6:45 EDT Treatment [facility] [place] [address] [place], [place] [phone] Carlota Jin MD 1 [facility], [facility] [address] [place] [phone] 01/26/2025 6:45 EDT Treatment [facility] [place] [address] [place], [place] [address] Carlota Jin MD 1 [facility], [facility] [address] [place] [phone] 01/29/2025 6:45 EDT Treatment [facility] [place] [address] [place], [place] [phone] Carlota Jin MD 1 [facility], [facility] [address] [place] [phone] 01/31/2025 6:45 EDT Treatment [facility] [place] [address] [place], [place] [phone] Carlota Jin MD 1 [facility], [address] [phone] 02/02/2025 6:45 EDT Treatment [facility] [place] [address] [place], [place] [phone] Carlota Jin MD [address] [phone] 02/05/2025 6:45 EDT Treatment [facility] [place] [address] [place], [place] [phone] Carlota Jin MD [address] [phone] 02/07/2025 6:45 EDT Treatment [facility] [place] [address] [place], [place] [phone] Carlota Jin MD 1 [facility] 2 [place] [phone] 02/09/2025 6:45 EDT Treatment [facility] [place] [address] [place], [place] [address] Carlota Jin MD 1 [facility], [facility] [address] [place] [phone] 02/12/2025 6:45 EDT Treatment [facility] [place] [address] [place], [place] [phone] Carlota Jin MD 1 [facility], [facility] [address] [place] [phone] 02/14/2025 6:45 EDT Treatment [facility] [place] [address] [place], [place] [phone] Carlota Jin MD 1 [facility], [facility] [address] [place] [phone] 02/16/2025 6:45 EDT Treatment [facility] [place] [address] [place] [address] Carlota Jin MD 1 [facility], [facility] [address] [place] [phone] 02/19/2025 6:45 EDT Treatment [facility] [place] [address] [place], [place] [address] Carlota Jin MD 1 [facility], [facility] [address] [place] [phone] 02/21/2025 6:45 EDT Treatment [facility] [place] [address] [place], [place] [address] Carlota Jin MD 1 [facility], Level [address] [place] [phone] documented as of this encounter Procedures Procedure Name Priority Date/Time Associated Diagnosis Comments POSTDIALYSIS BUN WITH URR CALCULATION Routine 02/22/2023 12:54 EDT ESRD (end stage renal disease) ([facility]) TRANSFERRIN SATURATION Routine 02/22/2023 7:23 EDT ESRD (end stage renal disease) ([facility]) DIALYSIS ROUTINE - DIALYSIS ONLY (BUN, K, NA, CL, CO2, SANJEEV, ALB, MG, PHOS, ALKP, AST) Routine 02/22/2023 7:23 EDT ESRD (end stage renal disease) ([facility]) PROFILE IRON STUDIES (INCLUDES IRON, IBC, AND FERRITIN) Routine 02/22/2023 7:23 EDT ESRD (end stage renal disease) ([facility]) FERRITIN Routine 02/22/2023 7:23 EDT ESRD (end stage renal disease) ([facility]) HEMODIALYSIS Routine 02/22/2023 7:06 EDT ESRD (end stage renal disease) ([facility]) documented in this encounter Results * (ABNORMAL) POSTDIALYSIS BUN WITH URR CALCULATION (02/22/2023 12:54 EDT) BUN, Postdialysis 19 10 - 26 mg/dL 02/22/2023 22:11 EDT [facility] Urea Reduction Rate 72.9 Not Established % 02/22/2023 22:11 EDT [facility] Comment: NOTE: Reference range not established for Urea Reduction Rate. BUN 70(H) 10 - 26 mg/dL 02/22/2023 22:11 EDT [facility] Blood VENOUS BLOOD / Unknown Venipuncture / Unknown 02/22/2023 12:54 EDT 02/22/2023 12:54 EDT us Carlota Jin MD CHEMISTRY & BLOOD GAS ORD ERABLES Final Result Performing Organization Address [facility] Co de Phone Number [facility] [address] [place] [address] * (ABNORMAL) FERRITIN (02/22/2023 7:23 EDT) Ferritin 830(H) 22 - 322 ng/mL 02/23/2023 2:45 EDT [facility] Blood VENOUS BLOOD / Unknown Venipuncture / Unknown 02/22/2023 7:23 EDT 02/22/2023 7:23 EDT us Carlota Jin MD CHEMISTRY & BLOOD GAS ORD ERABLES Final Result Performing Organization Address [facility] Co de Phone Number [facility] [address] [place] [address] * TRANSFERRIN SATURATION (02/22/2023 7:23 EDT) Iron 52 49 - 181 ??g/dL 02/22/2023 22:13 EDT [facility] Iron Binding Capacity 241 240 - 450 ??g/dL 02/22/2023 22:13 EDT [facility] Transferrin Saturation 22 15 - 45 % 02/22/2023 22:13 EDT [facility] Blood VENOUS BLOOD / Unknown Venipuncture / Unknown 02/22/2023 7:23 EDT 02/22/2023 7:23 EDT us Carlota Jin MD CHEMISTRY & BLOOD GAS ORD ERABLES Final Result Performing Organization Address [facility]/ZIP Co de Phone Number [facility] [address] [place] [address] * (ABNORMAL) DIALYSIS ROUTINE - DIALYSIS ONLY (BUN, K, NA, CL, CO2, SANJEEV, ALB, MG, PHOS, ALKP, AST) (02/22/2023 7:23 EDT) Sodium 133(L) 136 - 145 mmol/L 02/22/2023 22:03 [facility] Potassium 6.2(H) 3.5 - 5.0 mmol/L 02/22/2023 22:03 [facility] Chloride 95(L) 96 - 110 mmol/L 02/22/2023 22:03 [facility] CO2 Total 22 22 - 32 mmol/L 02/22/2023 22:03 [facility] Calcium 8.6 8.5 - 10.5 mg/dL 02/22/2023 22:03 [facility] Albumin 3.4 3.4 - 4.9 g/dL 02/22/2023 22:03 [facility] Phosphorus 8.8(H) 2.5 - 4.5 mg/dL 02/22/2023 22:03 [facility] Calcium Phos Product 75.7 See Note mg/dL 02/22/2023 22:03 [facility] Comment: NOTE: Reference range not established BUN, Predialysis 70(H) 10 - 26 mg/dL 02/22/2023 22:03 [facility] AST 17 15 - 46 U/L 02/22/2023 22:03 [facility] Alkaline Phosphatase 94 38 - 126 U/L 02/22/2023 22:03 [facility] Magnesium 2.8 1.7 - 2.8 mg/dL 02/22/2023 22:03 [facility] Anion Gap 16(H) 5 - 14 02/22/2023 22:03 [facility] Calculated Calcium 9.1 8.9 - 10.5 mg/dL 02/22/2023 22:03 [facility] Blood VENOUS BLOOD / Unknown Venipuncture / Unknown 02/22/2023 7:23 EDT 02/22/2023 7:23 EDT us Carlota Jin MD CHEMISTRY & BLOOD GAS ORD ERABLES Final Result [facility] [address] [place] [address] documented in this encounter Visit Diagnoses Diagnosis ESRD (end stage renal disease) ([facility])- Primary End stage renal disease [...] intravenous, ONCE IN DIALYSIS, 1 dose, On Wed02/22/23 at 0730, Routine, DialysisIndications:ESRD (end stage renal disease) ([facility]),Anemia of chronic renal failure, unspecified CKD stage Given 02/22/2023 8:06 EDT 500 Units heparin injection 9,000 Units 9,000 Units, intravenous, ONCE IN DIALYSIS, 1 dose, On Wed02/22/23 at 0730, Routine, Dialysis, Now x1 bolus 4500 units to be given at the beginning of dialysis 1500 units/hour to be given over the course of dialysis (9000 units total). Stop 1 hour prior to end of treatment. To be administered per Policy [id number].Indications:ESRD (end stage renal disease) ([facility]) Given 02/22/2023 7:18 EDT 9,000 Units nepro w/ carb steady bolus 237 mL 237 mL (1 Package), oral, ONCE IN DIALYSIS, 1 dose, On Wed02/22/23 at 0730, RoutineIndications:ESRD (end stage renal disease) ([facility]),Abnormal albumin Given 02/22/2023 8:06 EDT 237 mL documented in this encounter Orders Dialysis Count Last Ordered Date First Orde red Date HEMODIALYSIS 1 02/22/2023 documented in this encounter Care Teams Cabinetmaker Maintenance Relationship Specialty Start Date End Date Adeola Villegas APRN [address] [place] [address] PCP - General 10/12/16 07/06/23 documented as of this encounter
--- OUTSIDE RECORDS SUMMARY | 2024-12-05 12:27 | XMS_ITS | Encounter Summary ---
Author Organization [facility] Address [address] [place] [address] Care Team Providers Care Geothermal Plant Manager Name Role Phone Adeola Villegas MONA Primary Care Provider [phone] Encounter Details Date Type Department Care Team (Late st Contact Info) Description 02/19/2023 7:15 EDT Treatment [facility] [address] [place], [place] [id number] Carlota Jin MD 1 [facility], Level 2 [place] [address] ESRD (end stage renal disease) ([facility]) (Primary Dx); Anemia of chronic [...] - Temperature - - Respiratory Rate 16 02/19/2023 0648 EDT Oxygen Saturation - - Inhaled Oxygen Concentration - - Weight 91.5 kg (201 lb 11.5 oz) 02/19/2023 0648 EDT Height - - Body Mass Index 29.36 01/25/2023 0751 EDT documented in this encounter Miscellaneous Notes * Flowsheet Note - Marcela Cox RN - 02/19/2023 1140 EDT 02/19/23 1056 Post-Hemodialysis Assessment Total Blood Processed (L) 86.58 Liters On Line Clearance: spKt/V 1.38 spKt/V Dialyzer Clearance Lightly streaked Treatment UFR (ml:kg:hr) 11.06 ml:kg:hr Critline refill Not done Fluid Removed (L) 3.86 L Post-Dialysis Scale Weight 87.7 kg (193 lb 5.5 oz) Wheelchair Weight 0 kg (0 lb) Prosthesis Weight 0 kg (0 lb) Post-Treatment Weight (kg) 87.7 Treatment Weight Change (kg) 3.8 kg Day Target Weight (kg) 88 Post Sitting/Lying BP 137/72 Post Sitting/Lying pulse 61 Post Standing BP 115/64 Post Standing Pulse 63 Temp 36.2 ??C (97.2 ??F) Temp src Temporal Post access assessment AVF/AFG Hemostasis achieved Yes Note 10 min hold Orientation Alert and Oriented x3 Yes Cooperative Yes Disoriented No Discharge Ambulation Methods Ambulatory without assistance Wrap up items Patient Response to Treatment Removed 3.86L out of original 4L UF goal. Unable to remove full goal as pt reports cramping during last 8 min of tx, and rinseback performed at this time. Comments no concerns voiced post tx. d/c stable. documented in this encounter Plan of Treatment Upcoming Encounters Date Type Department Care Team (Late st Contact Info) Description 12/06/2024 6:45 EST Treatment [facility] - [place] [address] [place], [place] [id number] Carlota Jin MD [address] [place] [address], [address] [place] [address] 12/08/2024 6:45 EST Treatment [facility] [address] [place], [place] [phone] Carlota Jin MD 1 [facility] 2 [place] [phone] 12/11/2024 6:45 EST Treatment [facility] - [place] [address] [place], [place] [id number] Carlota Jin MD 1 [facility], [facility] 2 [place] [phone] 12/13/2024 6:45 EST Treatment [facility] - [place] [address] [place], [place] [id number] Carlota Jin MD 1 [facility], [facility] 2 [place] [phone] 12/15/2024 6:45 EST Treatment [facility] - [place] [address] [place] [address] Carlota Jin MD 1 [facility], [facility] 2 [place] [phone] 12/18/2024 6:45 EST Treatment [facility] - [place] [address] [place], [place] [id number] Carlota Jin MD 1 [facility], [facility] 2 [place] [phone] 12/20/2024 6:45 EST Treatment [facility] - [place] [address] [place], [place] [id number] Carlota Jin MD 1 [facility], [facility] 2 [place] [phone] 12/22/2024 6:45 EST Treatment [facility] - [place] [address] [place], [place] [id number] Carlota Jin MD 1 [facility], [facility] 2 [place] [phone] 12/25/2024 6:45 EST Treatment [facility] - [place] [address] [place], [place] [id number] Carlota Jin MD 1 [facility], [facility] 2 [place] [phone] 12/27/2024 6:45 EST Treatment [facility] [address] [place], [place] [phone] Carlota Jin MD [address] [place] [address], [facility] 2 [place] [phone] 12/29/2024 6:45 EST Treatment [facility] [address] [place], [place] [phone] Carlota Jin MD 1 [facility], [facility] 2 [place] [phone] 01/01/2025 6:45 EDT Treatment [facility] [place] [address] [place], [place] [phone] Carlota Jin MD 1 [facility], [facility] 2 [place] [phone] 01/03/2025 6:45 EDT Treatment [facility] [address] [place], [place] [phone] Carlota Jin MD 1 [facility], [facility] 2 [place] [phone] 01/05/2025 6:45 EDT Treatment [facility] - [place] [address] [place], [place] [phone] Carlota Jin MD 1 [facility], [facility] 2 [place] [phone] 01/08/2025 6:45 EDT Treatment [facility] - [place] [address] [place], [place] [id number] Carlota Jin MD 1 [facility], [address] [phone] 01/10/2025 6:45 EDT Treatment [facility] - [place] [address] [place], [place] [phone] Carlota Jin MD 1 [facility], [address] [phone] 01/12/2025 6:45 EDT Treatment [facility] - [place] [address] [place], [place] [phone] Carlota Jin MD 1 [facility], [facility] 2 [place] [phone] 01/15/2025 6:45 EDT Treatment [facility] - [place] [address] [place], [place] [id number] Carlota Jin MD 1 [facility], [facility] 2 [place] [phone] 01/17/2025 6:45 EDT Treatment [facility] - [place] [address] [place], [place] [id number] Carlota Jin MD 1 [facility], [facility] 2 [place] [phone] 01/19/2025 6:45 EDT Treatment [facility] [place] [address] [place], [place] [phone] Carlota Jin MD 1 [facility], [facility] 2 [place] [phone] 01/22/2025 6:45 EDT Treatment [facility] - [place] [address] [place], [place] [address] Carlota Jin MD 1 [facility], [address] [phone] 01/24/2025 6:45 EDT Treatment [facility] [place] [address] [place], [place] [phone] Carlota Jin MD 1 [facility], [facility] 2 [place] [phone] 01/26/2025 6:45 EDT Treatment [facility] [place] [address] [place], [place] [phone] Carlota Jin MD 1 [facility], [facility] 2 [place] [phone] 01/29/2025 6:45 EDT Treatment [facility] [place] [address] [place], [place] [address] Carlota Jin MD 1 [facility], [facility] 2 [place] [phone] 01/31/2025 6:45 EDT Treatment [facility] - [place] [address] [place] [address] Carlota Jin MD 1 [facility], [address] [phone] 02/02/2025 6:45 EDT Treatment [facility] - [place] [address] [place], [place] [address] Carlota Jin MD 1 [facility], [address] [phone] 02/05/2025 6:45 EDT Treatment [facility] [place] [address] [place] [address] Carlota Jin MD 1 [facility], [address] [phone] 02/07/2025 6:45 EDT Treatment [facility] - [place] [address] [place], [place] [phone] Carlota Jin MD [address] [phone] 02/09/2025 6:45 EDT Treatment [facility] - [place] [address] [place], [place] [phone] Carlota Jin MD 1 [facility], [facility] 2 [place] [phone] 02/12/2025 6:45 EDT Treatment [facility] - [place] [address] [place], [place] [phone] Carlota Jin MD 1 [facility], [address] [phone] 02/14/2025 6:45 EDT Treatment [facility] - [place] [address] [place], [place] [phone] Carlota Jin MD 1 [facility], [address] [phone] 02/16/2025 6:45 EDT Treatment [facility] - [place] [address] [place], [place] [id number] Carlota Jin MD [address] [phone] 02/19/2025 6:45 EDT Treatment [facility] [place] [address] [place], [place] [phone] Carlota Jin MD 1 [facility], [address] [phone] 02/21/2025 6:45 EDT Treatment [facility] [place] [address] [place], [place] [phone] Carlota Jin MD 1 [facility], [address] [phone] documented as of this encounter Procedures Procedure Name Priority Date/Time Associated Diagnosis Comments HEMODIALYSIS Routine 02/19/2023 6:48 EDT ESRD (end stage renal disease) ([facility]) documented in this encounter Visit Diagnoses Diagnosis ESRD (end stage renal disease) ([facility])- Primary End stage renal disease Anemia of chronic renal failure, unspecified CKD stage Abnormal albumin Other nonspecific findings on examination of blood documented in this encounter Administered Medications Inactive Administered Medications - up to 3 most recent administrations Medication Order MAR Action Action Date Dose Rate Site epoetin kne (EPOGEN) 20,000 unit/2 mL injection 500 Units 500 Units, intravenous, ONCE IN DIALYSIS, 1 dose, On Wed02/19/23 at 0715, Routine, DialysisIndications:ESRD (end stage renal disease) ([facility]),Anemia of chronic renal failure, unspecified CKD stage Given 02/19/2023 7:05 EDT 500 Units heparin injection 9,000 Units 9,000 Units, intravenous, ONCE IN DIALYSIS, 1 dose, On Wed02/19/23 at 0715, Routine, Dialysis, Now x1 bolus 4500 units to be given at the beginning of dialysis 1500 units/hour to be given over the course of dialysis (9000 units total). Stop 1 hour prior to end of treatment. To be administered per Policy [id number].Indications:ESRD (end stage renal disease) ([facility]) Given 02/19/2023 7:00 EDT 9,000 Units nepro w/ carb steady bolus 237 mL 237 mL (1 Package), oral, ONCE IN DIALYSIS, 1 dose, On Wed02/19/23 at 0715, RoutineIndications:ESRD (end stage renal disease) ([facility]),Abnormal albumin Given 02/19/2023 7:05 EDT 237 mL documented in this encounter Orders Dialysis Count Last Ordered Date First Orde red Date HEMODIALYSIS 1 02/19/2023 documented in this encounter Care Teams Geothermal Plant Manager Relationship Specialty Start Date End Date Adeola Villegas APRN [address] [place] [address] PCP - General 10/12/16 07/06/23 documented as of this encounter
--- OUTSIDE RECORDS SUMMARY | 2024-12-05 12:27 | XMS_ITS | Encounter Summary ---
Author Organization [facility] Address [address] [place] [address] Care Team Providers Care Bisque Kiln Placer Name Role Phone Adeola Villegas APRN Primary Care Provider [phone] Encounter Details Date Type Department Care Team (Late st Contact Info) Description 02/12/2023 Documentation [facility] [address] [place], [place] [phone] Melissa Crespo, RN Social History Tobacco Use [...] [facility] [address] [place] [id number] Carl[facility] MD 1 [facility] [address] [place] [address] 12/08/2024 6:45 EST Treatment [facility] [address] [place] [address] Carlota Jin MD 1 [facility], [facility] 2 [place] [phone] 12/11/2024 6:45 EST Treatment [facility] [place] [address] [place], [place] [address] Carlota Jin MD 1 [facility], [facility] 2 [place] [phone] 12/13/2024 6:45 EST Treatment [facility] [place] [address] [place], [place] [phone] Carlota Jin MD 1 [facility], [facility] 2 [place] [phone] 12/15/2024 6:45 EST Treatment [facility] - [place] [address] [place], [place] [id number] Carlota Jin MD 1 [facility], [facility] 2 [place] [phone] 12/18/2024 6:45 EST Treatment [facility] [address] [place] [address] Carlota Jin MD 1 [facility], [facility] 2 [place] [phone] 12/20/2024 6:45 EST Treatment [facility] [place] [address] [place], [place] [address] Carlota Jin MD 1 [facility], [facility] 2 [place] [phone] 12/22/2024 6:45 EST Treatment [facility] [place] [address] [place], [place] [phone] Carlota Jin MD 1 [facility], [facility] 2 [place] [phone] 12/25/2024 6:45 EST Treatment [facility] [place] [address] [place], [place] [phone] Carlota Jin MD 1 [facility], [facility] 2 [place] [phone] 12/27/2024 6:45 EST Treatment [facility] [place] [address] [place], [place] [phone] Carlota Jin MD 1 [facility], [facility] 2 [place] [phone] 12/29/2024 6:45 EST Treatment [facility] [place] [address] [place], [place] [phone] Carlota Jin MD 1 [facility], [facility] 2 [place] [phone] 01/01/2025 6:45 EDT Treatment [facility] [place] [address] [place], [place] [phone] Carlota Jin MD 1 [facility], [facility] 2 [place] [phone] 01/03/2025 6:45 EDT Treatment [facility] - [place] [address] [place], [place] [phone] Carlota Jin MD 1 [facility], [address] [place] [phone] 01/05/2025 6:45 EDT Treatment [facility] [place] [address] [place], [place] [address] Carlota Jin MD 1 [facility], [facility] 2 [place] [phone] 01/08/2025 6:45 EDT Treatment [facility] - [place] [address] [place], [place] [phone] Carlota Jin MD 1 [facility], [facility] 2 [place] [phone] 01/10/2025 6:45 EDT Treatment [facility] [place] [address] [place] [address] Carlota Jin MD 1 [facility], [facility] 2 [place] [phone] 01/12/2025 6:45 EDT Treatment [facility] [address] [place] [address] Carlota Jin MD 1 [facility], [facility] 2 [place] [phone] 01/15/2025 6:45 EDT Treatment [facility] [address] [place], [place] [phone] Carlota Jin MD 1 [facility], [facility] 2 [place] [phone] 01/17/2025 6:45 EDT Treatment [facility] [place] [address] [place], [place] [phone] Carlota Jin MD 1 [facility], [facility] 2 [place] [phone] 01/19/2025 6:45 EDT Treatment [facility] [place] [address] [place], [place] [phone] Carlota Jin MD 1 [facility], [facility] 2 [place] [phone] 01/22/2025 6:45 EDT Treatment [facility] [place] [address] [place], [place] [phone] Carlota Jin MD [address] [place] [address], [facility] 2 [place] [phone] 01/24/2025 6:45 EDT Treatment [facility] [place] [address] [place], [place] [phone] Carlota Jin MD 1 [facility], [facility] 2 [place] [phone] 01/26/2025 6:45 EDT Treatment [facility] [place] [address] [place], [place] [phone] Carlota Jin MD 1 [facility], [facility] 2 [place] [phone] 01/29/2025 6:45 EDT Treatment [facility] [place] [address] [place], [place] [phone] Carlota Jin MD 1 [facility], [facility] 2 [place] [phone] 01/31/2025 6:45 EDT Treatment [facility] [place] [address] [place], [place] [phone] Carlota Jin MD 1 [facility], [facility] 2 [place] [phone] 02/02/2025 6:45 EDT Treatment [facility] [place] [address] [place], [place] [phone] Carlota Jin MD 1 [facility], [address] [phone] 02/05/2025 6:45 EDT Treatment [facility] [place] [address] [place], [place] [address] Carlota Jin MD 1 [facility], [address] [phone] 02/07/2025 6:45 EDT Treatment [facility] [place] [address] [place], [place] [address] Carlota Jin MD 1 [facility], [facility] 2 [place] [phone] 02/09/2025 6:45 EDT Treatment [facility] [place] [address] [place], [place] [phone] Carlota Jin MD 1 [facility], [facility] 2 [place] [phone] 02/12/2025 6:45 EDT Treatment [facility] [place] [address] [place], [place] [phone] Carlota Jin MD [address] [phone] 02/14/2025 6:45 EDT Treatment [facility] [place] [address] [place], [place] [address] Carlota Jin MD [address] [place] [phone] 02/16/2025 6:45 EDT Treatment [facility] - [place] [address] [place], [place] [address] Carlota Jin MD [address] [place] [phone] 02/19/2025 6:45 EDT Treatment [facility] [place] [address] [place], [place] [phone] Carlota Jin MD [address] [place] [phone] 02/21/2025 6:45 EDT Treatment [facility] - [place] [address] [place], [place] [phone] Carlota Jin MD [address] [place] [phone] documented as of this encounter Visit Diagnoses Not on filedocumented in this encounter Care Teams Bisque Kiln Placer Relationship Specialty Start Date End Date Villegas, Walker, SALES REVIEW CLERK [address] [place] [address] PCP - General 10/12/16 07/06/23 documented as of this encounter
--- OUTSIDE RECORDS SUMMARY | 2024-12-05 12:27 | XMS_ITS | Encounter Summary ---
Author Organization [facility] Address [address] [place] [address] Care Team Providers Care Vat Washer Name Role Phone Adeola Villegas APRN Primary Care Provider [phone] Encounter Details Date Type Department Care Team (Late st Contact Info) Description 02/08/2023 Documentation Visit [facility] [address] [place] [id number] Shelley Eden, RD [address] [place] [address] Social History Tobacco Use Types Packs/Day Years [...] EST Treatment [facility] - [place] [address] [place] [id number] Carlota Jin MD 1 [facility], Level [address] [place] [phone] 12/08/2024 6:45 EST Treatment [facility] [address] [place] [phone] Carlota Jin MD 1 [facility], [facility] 2 [place] [phone] 12/11/2024 6:45 EST Treatment [facility] - [place] [address] [place], [place] [phone] Carlota Jin MD 1 [facility], [facility] 2 [place] [phone] 12/13/2024 6:45 EST Treatment [facility] - [place] [address] [place], [place] [phone] Carlota Jin MD 1 [facility], [facility] 2 [place] [phone] 12/15/2024 6:45 EST Treatment [facility] - [place] [address] [place] [address] Carlota Jin MD 1 [facility], [facility] 2 [place] [phone] 12/18/2024 6:45 EST Treatment [facility] - [place] [address] [place], [place] [phone] Carlota Jin MD 1 [facility], [facility] 2 [place] [phone] 12/20/2024 6:45 EST Treatment [facility] - [place] [address] [place], [place] [phone] Carlota Jin MD 1 [facility], [facility] 2 [place] [phone] 12/22/2024 6:45 EST Treatment [facility] - [place] [address] [place], [place] [phone] Carlota Jin MD 1 [facility], [facility] 2 [place] [phone] 12/25/2024 6:45 EST Treatment [facility] [place] [address] [place], [place] [phone] Carlota Jin MD 1 [facility], [facility] 2 [place] [phone] 12/27/2024 6:45 EST Treatment [facility] [address] [place], [place] [phone] Carlota Jin MD [address] [place] [address], [facility] 2 [place] [phone] 12/29/2024 6:45 EST Treatment [facility] [address] [place], [place] [phone] Carlota Jin MD 1 [facility], [facility] 2 [place] [phone] 01/01/2025 6:45 EDT Treatment [facility] [place] [address] [place], [place] [phone] Carlota Jin MD 1 [facility], [facility] 2 [place] [phone] 01/03/2025 6:45 EDT Treatment [facility] [address] [place], [place] [phone] Carlota Jin MD 1 [facility], [facility] 2 [place] [phone] 01/05/2025 6:45 EDT Treatment [facility] - [place] [address] [place], [place] [phone] Carlota Jin MD 1 [facility], [facility] 2 [place] [phone] 01/08/2025 6:45 EDT Treatment [facility] - [place] [address] [place], [place] [phone] Carlota Jin MD 1 [facility], [address] [phone] 01/10/2025 6:45 EDT Treatment [facility] - [place] [address] [place], [place] [phone] Carlota Jin MD 1 [facility], [address] [phone] 01/12/2025 6:45 EDT Treatment [facility] - [place] [address] [place], [place] [phone] Carlota Jin MD 1 [facility], [facility] 2 [place] [phone] 01/15/2025 6:45 EDT Treatment [facility] - [place] [address] [place], [place] [phone] Carlota Jin MD 1 [facility], [facility] 2 [place] [phone] 01/17/2025 6:45 EDT Treatment [facility] - [place] [address] [place], [place] [phone] Carlota Jin MD 1 [facility], [facility] 2 [place] [phone] 01/19/2025 6:45 EDT Treatment [facility] - [place] [address] [place], [place] [phone] Carlota Jin MD 1 [facility], [facility] 2 [place] [phone] 01/22/2025 6:45 EDT Treatment [facility] - [place] [address] [place], [place] [address] Carlota Jin MD 1 [facility], [address] [phone] 01/24/2025 6:45 EDT Treatment [facility] - [place] [address] [place], [place] [phone] Carlota Jin MD 1 [facility], [facility] 2 [place] [phone] 01/26/2025 6:45 EDT Treatment [facility] - [place] [address] [place], [place] [phone] Carlota Jin MD 1 [facility], [facility] 2 [place] [phone] 01/29/2025 6:45 EDT Treatment [facility] - [place] [address] [place], [place] [address] Carlota Jin MD 1 [facility], [facility] 2 [place] [phone] 01/31/2025 6:45 EDT Treatment [facility] - [place] [address] [place] [address] Carlota Jin MD 1 [facility], [address] [phone] 02/02/2025 6:45 EDT Treatment [facility] - [place] [address] [place], [place] [address] Carlota Jin MD 1 [facility], [address] [phone] 02/05/2025 6:45 EDT Treatment [facility] - [place] [address] [place] [address] Carlota Jin MD 1 [facility], [address] [phone] 02/07/2025 6:45 EDT Treatment [facility] - [place] [address] [place], [place] [phone] Carlota Jin MD [address] [phone] 02/09/2025 6:45 EDT Treatment [facility] - [place] [address] [place], [place] [phone] Carlota Jin MD 1 [facility], [facility] 2 [place] [phone] 02/12/2025 6:45 EDT Treatment [facility] - [place] [address] [place], [place] [phone] Carlota Jin MD 1 [facility], [facility] 2 [place] [phone] 02/14/2025 6:45 EDT Treatment [facility] - [place] [address] [place], [place] [phone] Carlota Jin MD 1 [facility], [address] [phone] 02/16/2025 6:45 EDT Treatment [facility] - [place] [address] [place], [place] [phone] Carlota Jin MD 1 [facility], [address] [phone] 02/19/2025 6:45 EDT Treatment [facility] - [place] [address] [place], [place] [phone] Carlota Jin MD 1 [facility], [address] [phone] 02/21/2025 6:45 EDT Treatment [facility] [place] [address] [place], [place] [phone] Carlota Jin MD 1 [facility], [facility] 2 [place] [phone] documented as of this encounter Visit Diagnoses Not on filedocumented in this encounter Care Teams Vat Washer Relationship Specialty Start Date End Date Adeola Villegas APRN [address] [place] [address] PCP - General 10/12/16 07/06/23 documented as of this encounter
--- OUTSIDE RECORDS SUMMARY | 2024-12-05 12:27 | XMS_ITS | Encounter Summary ---
Author Organization [facility] Address [address] [place] [address] Care Team Providers Care Writing Manager Name Role Phone Adeoal Villegas MONA Primary Care Provider [phone] Encounter Details Date Type Department Care Team (Late st Contact Info) Description 02/10/2023 7:15 EDT Treatment [facility] [address] [place], [place] [phone] Carlota Jin MD 1 [facility], Level [address] [place] [phone] ESRD (end stage renal disease) ([facility] (Primary Dx); Abnormal albumin Social History Tobacco [...] - Temperature - - Respiratory Rate 18 02/10/2023 1113 EDT Oxygen Saturation - - Inhaled Oxygen Concentration - - Weight 92 kg (202 lb 13.2 oz) 02/10/2023 0709 ED T Height - - Body Mass Index 29.52 01/25/2023 0751 EDT documented in this encounter Miscellaneous Notes * Flowsheet Note - Melissa Crespo RN - 02/10/2023 0443 EDT 02/10/23 1113 Post-Hemodialysis Assessment Total Blood Processed (L) 81.46 Liters Dialyzer Clearance Lightly streaked Treatment UFR (ml:kg:hr) 10.53 ml:kg:hr Final Critline Profile (%/hr) -3.41 Final Profile Profile B Critline refill Negative (H1: 36.5 H2:36.2) Fluid Removed (L) 4 L Post-Dialysis Scale Weight 88.4 kg (194 lb 14.2 oz) Wheelchair Weight 0 kg (0 lb) Prosthesis Weight 0 kg (0 lb) Post-Treatment Weight (kg) 88.4 Treatment Weight Change (kg) 3.6 kg Day Target Weight (kg) 88.5 Post Sitting/Lying BP 135/72 Post Sitting/Lying pulse 62 Post Standing BP 120/64 Post Standing Pulse 66 Temp 36.2 ??C (97.2 ??F) Temp src Temporal Resp 18 Post access assessment Bruit present: Yes Thrill Present AVF/AFG Hemostasis achieved Yes Note Patient held for 10mins with blue clamps Orientation Alert and Oriented x3 Yes Cooperative Yes Disoriented No Discharge Ambulation Methods Ambulatory without assistance Wrap up items Patient Response to Treatment Tolerated tx. Removed 4000 UF goal. Stable upon DC from unit. Comments Pt's tx time cut by 15 min due to last onging today. No issues during tx, No concerns voiced post tx. documented in this encounter Plan of Treatment Upcoming Encounters Date Type Department Care Team (Late st Contact Info) Description 12/06/2024 6:45 EST Treatment [facility] [place] [address] [place], [place] [phone] Carlota Jin MD 1 [facility], Level [address] [place] [phone] 12/08/2024 6:45 EST Treatment [facility] [address] [place], [place] [phone] Carlota Jin MD 1 [facility], [facility] 2 [place] [phone] 12/11/2024 6:45 EST Treatment [facility] [place] [address] [place], [place] [phone] Carlota Jin MD 1 [facility], [facility] 2 [place] [phone] 12/13/2024 6:45 EST Treatment [facility] [place] [address] [place] [address] Carlota Jin MD 1 [facility], [address] [phone] 12/15/2024 6:45 EST Treatment [facility] - [place] [address] [place], [place] [phone] Carlota Jin MD 1 [facility], [address] [phone] 12/18/2024 6:45 EST Treatment [facility] [place] [address] [place] [address] Carlota Jin MD 1 [facility], [facility] 2 [place] [phone] 12/20/2024 6:45 EST Treatment [facility] [place] [address] [place], [place] [phone] Carlota Jin MD 1 [facility], [facility] 2 [place] [phone] 12/22/2024 6:45 EST Treatment [facility] [place] [address] [place], [place] [phone] Carlota Jin MD 1 [facility], [facility] 2 [place] [phone] 12/25/2024 6:45 EST Treatment [facility] [place] [address] [place], [place] [phone] Carlota Jin MD 1 [facility], [facility] 2 [place] [phone] 12/27/2024 6:45 EST Treatment [facility] - [place] [address] [place], [place] [phone] Carlota Jin MD 1 [facility], [facility] 2 [place] [phone] 12/29/2024 6:45 EST Treatment [facility] - [place] [address] [place], [place] [address] Carlota Jin MD 1 [facility], [facility] 2 [place] [phone] 01/01/2025 6:45 EDT Treatment [facility] [place] [address] [place], [place] [phone] Carlota Jin MD 1 [facility], [facility] 2 [place] [phone] 01/03/2025 6:45 EDT Treatment [facility] - [place] [address] [place], [place] [phone] Carlota Jin MD 1 [facility], [facility] 2 [place] [phone] 01/05/2025 6:45 EDT Treatment [facility] [place] [address] [place] [address] Carlota Jin MD 1 [facility], [address] [phone] 01/08/2025 6:45 EDT Treatment [facility] [place] [address] [place], [place] [phone] Carlota Jin MD 1 [facility], [address] [phone] 01/10/2025 6:45 EDT Treatment [facility] [place] [address] [place], [place] [phone] Carlota Jin MD 1 [facility], [address] [phone] 01/12/2025 6:45 EDT Treatment [facility] [place] [address] [place], [place] [phone] Carlota Jin MD 1 [facility], [facility] 2 [place] [phone] 01/15/2025 6:45 EDT Treatment [facility] [place] [address] [place], [place] [phone] Carlota Jin MD 1 [facility], [facility] 2 [place] [phone] 01/17/2025 6:45 EDT Treatment [facility] [place] [address] [place], [place] [phone] Carlota Jin MD 1 [facility], [facility] 2 [place] [phone] 01/19/2025 6:45 EDT Treatment [facility] [place] [address] [place], [place] [phone] Carlota Jin MD 1 [facility], [facility] 2 [place] [phone] 01/22/2025 6:45 EDT Treatment [facility] [place] [address] [place] [address] Carlota Jin MD 1 [facility], [address] [phone] 01/24/2025 6:45 EDT Treatment [facility] [place] [address] [place], [place] [phone] Carlota Jin MD 1 [facility], [facility] 2 [place] [phone] 01/26/2025 6:45 EDT Treatment [facility] [place] [address] [place], [place] [phone] Carlota Jin MD 1 [facility], [facility] 2 [place] [phone] 01/29/2025 6:45 EDT Treatment [facility] [place] [address] [place], [place] [address] Carlota Jin MD 1 [facility], [facility] 2 [place] [phone] 01/31/2025 6:45 EDT Treatment [facility] - [place] [address] [place], [place] [phone] Carlota Jin MD 1 [facility], [facility] 2 [place] [phone] 02/02/2025 6:45 EDT Treatment [facility] [place] [address] [place], [place] [phone] Carlota Jin MD 1 [facility], [address] [phone] 02/05/2025 6:45 EDT Treatment [facility] [place] [address] [place], [place] [phone] Carlota Jin MD [address] [phone] 02/07/2025 6:45 EDT Treatment [facility] [place] [address] [place], [place] [phone] Carlota Jin MD [address] [phone] 02/09/2025 6:45 EDT Treatment [facility] [place] [address] [place], [place] [phone] Carlota Jin MD 1 [facility] 2 [place] [phone] 02/12/2025 6:45 EDT Treatment [facility] - [place] [address] [place], [place] [address] Carltoa Jin MD 1 [facility], [facility] 2 [place] [phone] 02/14/2025 6:45 EDT Treatment [facility] - [place] [address] [place], [place] [phone] Carlota Jin MD 1 [facility], [facility] 2 [place] [phone] 02/16/2025 6:45 EDT Treatment [facility] [place] [address] [place], [place] [phone] Carlota Jin MD 1 [facility], [facility] 2 [place] [phone] 02/19/2025 6:45 EDT Treatment [facility] - [place] [address] [place] [address] Carlota Jin MD 1 [facility], [facility] 2 [place] [phone] 02/21/2025 6:45 EDT Treatment [facility] [place] [address] [place], [place] [phone] Carlota Jin MD 1 [facility], [facility] 2 [place] [phone] documented as of this encounter Procedures Procedure Name Priority Date/Time Associated Diagnosis Comments COMPLETE BLOOD COUNT Routine 02/10/2023 8:30 EDT ESRD (end stage renal disease) ([facility]) HEMODIALYSIS Routine 02/10/2023 7:10 EDT ESRD (end stage renal disease) ([facility]) documented in this encounter Results * (ABNORMAL) COMPLETE BLOOD COUNT (02/10/2023 8:30 EDT) WBC 7.19 4.00 - 10.40 K/cmm 02/10/2023 21:24 [facility] RBC 2.99(L) 4.36 - 5.78 M/cmm 02/10/2023 21:24 [facility] Hemoglobin 9.7(L) 13.8 - 17.3 gm/dL 02/10/2023 21:24 [facility] HCT 28.5(L) 39.5 - 50.2 % 02/10/2023 21:24 [facility] MCV 95 81 - 95 fl 02/10/2023 21:24 [facility] MCH 32.4 27.6 - 33.0 pg 02/10/2023 21:24 [facility] MCHC 34.0 32.8 - 36.4 gm/dL 02/10/2023 21:24 [facility] RDW-CV 12.7 <14.2 % 02/10/2023 21:24 [facility] RDW-SD 43.7 <46.0 fl 02/10/2023 21:24 [facility] PLT 223 141 - 377 K/cmm 02/10/2023 21:24 [facility] MPV 12.1 9.5 - 12.7 fl 02/10/2023 21:24 [facility] Blood VENOUS BLOOD / Unknown Venipuncture / Unknown 02/10/2023 8:30 EDT 02/10/2023 8:30 EDT Carlota Jin MD HEMATOLOGY & PF4 ORDERABL ES Final Result [facility] [address] [place] [address] documented in this encounter Visit Diagnoses Diagnosis [...] intravenous, ONCE IN DIALYSIS, 1 dose, On Wed02/10/23 at 0730, Routine, Dialysis, Now x1 bolus 4500 units to be given at the beginning of dialysis 1500 units/hour to be given over the course of dialysis (9000 units total). Stop 1 hour prior to end of treatment. To be administered per Policy [id number].Indications:ESRD (end stage renal disease) ([facility]) Given 02/10/2023 7:21 EDT 9,000 Units nepro w/ carb steady bolus 237 mL 237 mL (1 Package), oral, ONCE IN DIALYSIS, 1 dose, On Wed02/10/23 at 0730, RoutineIndications:ESRD (end stage renal disease) ([facility]),Abnormal albumin Given 02/10/2023 8:23 EDT 237 mL documented in this encounter Orders Dialysis Count Last Ordered Date First Orde red Date HEMODIALYSIS 1 02/10/2023 documented in this encounter Care Teams Writing Manager Relationship Specialty Start Date End Date Adeola Villegas APRN [address] [place] [address] PCP - General 10/12/16 07/06/23 documented as of this encounter
--- OUTSIDE RECORDS SUMMARY | 2024-12-05 12:27 | XMS_ITS | Encounter Summary ---
Author Organization [facility] Address [address] [place] [address] Care Team Providers Care Director Physical Therapy Name Role Phone Adeola Villegas MONA Primary Care Provider [phone] Encounter Details Date Type Department Care Team (Late st Contact Info) Description 02/12/2023 7:15 EDT Treatment [facility] [address] [place] [id number] Carlota Jin MD 1 [facility], Level [address] [place] [address] ESRD (end stage renal disease) ([facility]) (Primary Dx); Anemia [...] - Temperature - - Respiratory Rate 17 02/12/2023 1112 EDT Oxygen Saturation - - Inhaled Oxygen Concentration - - Weight 92.7 kg (204 lb 5.9 oz) 02/12/2023 0659 E DT Height - - Body Mass Index 29.75 01/25/2023 0751 EDT documented in this encounter Miscellaneous Notes * Flowsheet Note - Melissa Crespo RN - 02/12/2023 1522 EDT 02/12/23 1124 Post-Hemodialysis Assessment Total Blood Processed (L) 89.13 Liters Dialyzer Clearance Lightly streaked Treatment UFR (ml:kg:hr) 11.34 ml:kg:hr Final Critline Profile (%/hr) -2.99 Final Profile Profile A Critline refill Negative (H1 36.0 - H2 36.1) Fluid Removed (L) 4.2 L Post-Dialysis Scale Weight 88.5 kg (195 lb 1.7 oz) Wheelchair Weight 0 kg (0 lb) Prosthesis Weight 0 kg (0 lb) Post-Treatment Weight (kg) 88.5 Treatment Weight Change (kg) 4.2 kg Day Target Weight (kg) 89.2 Post Sitting/Lying BP 136/82 Post Sitting/Lying pulse 65 Post Standing BP 118/60 Post Standing Pulse 69 Temp 36.5 ??C (97.7 ??F) Temp src Temporal Post access assessment AVF/AFG Hemostasis achieved NA-Catheter Orientation Alert and Oriented x3 Yes Cooperative Yes Disoriented No Discharge Ambulation Methods Ambulatory without assistance Wrap up items Patient Response to Treatment Tolerated tx. Removed 4200 / 4000 UF goal wihout. Stable upon DC fromunit. Comments No issues during tx, No concerns voiced post tx. * Dialysis Rounding - Skye Gomez NP - 02/12/2023 0715 EDT Dialysis Provider's Routine Assessment Gerson Bruner was seen and examined as appropriate during Dialysis. Pertinent lab results were reviewed. Changes since last visit: None Changes to current prescriptions/orders: None Pt encouraged to limit fluid intake, stable on dialysis. Skye Gomez NP documented in this encounter Plan of Treatment Upcoming Encounters Date Type Department Care Team (Late st Contact Info) Description 12/06/2024 6:45 EST Treatment [facility] Dialysi - [place] [address] [place], [place] [id number] Carlota Jin MD 1 [facility], [facility] [address] [place] [phone] 12/08/2024 6:45 EST Treatment [facility] Dialysi - [place] [address] [place], [place] [id number] Carlota Jin MD 1 [facility], [facility] [address] [place] [phone] 12/11/2024 6:45 EST Treatment [facility] D[place]ys[facility] - [place] [address] [place], [place] [id number] Carlota Jin MD 1 [facility], [facility] [address] [place] [phone] 12/13/2024 6:45 EST Treatment [facility] Dialys[facility] - [place] [address] [place], [place] [id number] Carlota Jin MD [address] [phone] 12/15/2024 6:45 EST Treatment [facility] Dialysi - [place] [address] [place], [place] [id number] Carlota Jin MD 1 [facility] [address] [place] [phone] 12/18/2024 6:45 EST Treatment [facility] Dialysi - [place] [address] [place], [place] [id number] Carlota Jin MD 1 [facility], [facility] [address] [place] [phone] 12/20/2024 6:45 EST Treatment [facility] Dialysi - [place] [address] [place], [place] [id number] Carlota Jin MD 1 [facility], [facility] [address] [place] [phone] 12/22/2024 6:45 EST Treatment [facility] Dialysi [facility] [address] [place], [place] [id number] Carlota Jin MD 1 [facility], [facility] [address] [place] [phone] 12/25/2024 6:45 EST Treatment [facility] Dialysi [facility] [address] [place], [place] [id number] Carlota Jin MD 1 [facility], [facility] [address] [place] [phone] 12/27/2024 6:45 EST Treatment [facility] Dialys[facility] [address] [place], [place] [id number] Carlota Jin MD 1 [facility], [facility] [address] [place] [phone] 12/29/2024 6:45 EST Treatment [facility] D[facility] [address] [place], [place] [id number] Carlota Jin MD 1 [facility], [facility] [address] [place] [phone] 01/01/2025 6:45 EDT Treatment [facility] D[facility]ys[facility] - [place] [address] [place], [place] [id number] Carlota Jin MD 1 [facility], [facility] [address] [place] [phone] 01/03/2025 6:45 EDT Treatment [facility] Dialysi - [place] [address] [place], [place] [id number] Carlota Jin MD 1 [facility], [address] [phone] 01/05/2025 6:45 EDT Treatment [facility] Dialysi - [place] [address] [place], [place] [id number] Carlota Jin MD 1 [facility], [address] [phone] 01/08/2025 6:45 EDT Treatment [facility] D[facility]ys[facility] - [place] [address] [place], [place] [id number] Carlota Jin MD 1 [facility], [address] [phone] 01/10/2025 6:45 EDT Treatment [facility] - [place] [address] [place], [place] [id number] Carlota Jin MD 1 [facility], [facility] [address] [place] [phone] 01/12/2025 6:45 EDT Treatment [facility] - [place] [address] [place], [place] [id number] Carlota Jin MD 1 [facility], [facility] [address] [place] [phone] 01/15/2025 6:45 EDT Treatment [facility]ys[facility] - [place] [address] [place], [place] [address] Carlota Jin MD 1 [facility], [facility] [address] [place] [phone] 01/17/2025 6:45 EDT Treatment [facility] - [place] [address] [place], [place] [id number] Carlota Jin MD 1 [facility], [facility] [address] [place] [phone] 01/19/2025 6:45 EDT Treatment [facility] - [place] [address] [place], [place] [id number] Carlota Jin MD 1 [facility], [facility] [address] [place] [phone] 01/22/2025 6:45 EDT Treatment [facility] - [place] [address] [place] [address] Carlota Jin MD 1 [facility], [facility] [address] [place] [phone] 01/24/2025 6:45 EDT Treatment [facility] - [place] [address] [place], [place] [id number] Carlota Jin MD 1 [facility], [facility] [address] [place] [phone] 01/26/2025 6:45 EDT Treatment [facility] Dialysi - [place] [address] [place], [place] [id number] Carlota Jin MD 1 [facility], [facility] [address] [place] [phone] 01/29/2025 6:45 EDT Treatment [facility] - [place] [address] [place], [place] [id number] Carlota Jin MD 1 [facility], [facility] [address] [place] [phone] 01/31/2025 6:45 EDT Treatment [facility] Dialysi - [place] [address] [place], [place] [id number] Carlota Jin MD [address] [place] [address], [address] [phone] 02/02/2025 6:45 EDT Treatment [facility] D[place]ys[facility] - [place] [address] [place], [place] [id number] Carlota Jin MD [address] [place] [address], [facility] [address] [place] [phone] 02/05/2025 6:45 EDT Treatment [facility] - [place] [address] [place], [place] [id number] Carlota Jin MD 1 [facility], [facility] [address] [place] [phone] 02/07/2025 6:45 EDT Treatment [facility] D[place]ys[place] - [place] [address] [place], [place] [id number] Carlota Jin MD 1 [facility], [facility] [address] [place] [phone] 02/09/2025 6:45 EDT Treatment [facility] D[place]ys[place] - [place] [address] [place], [place] [id number] Carlota Jin MD 1 [facility], [facility] [address] [place] [phone] 02/12/2025 6:45 EDT Treatment [facility] - [place] [address] [place], [place] [id number] Carlota Jin MD 1 [facility], [facility] [address] [place] [phone] 02/14/2025 6:45 EDT Treatment [facility] - [place] [address] [place], [place] [id number] Carlota Jin MD 1 [facility], [facility] [address] [place] [phone] 02/16/2025 6:45 EDT Treatment [facility] [address] [place], [place] [id number] Carlota Jin MD 1 [facility], [facility] [address] [place] [phone] 02/19/2025 6:45 EDT Treatment [facility] D[facility] [place] [address] [place], [place] [id number] Carlota Jin MD 1 [facility], [facility] [address] [place] [phone] 02/21/2025 6:45 EDT Treatment [facility] - [place] [address] [place] [id number] Carlota Jin MD 1 [facility], [address] [place] [phone] documented as of this encounter Procedures Procedure Name Priority Date/Time Associated Diagnosis Comments HEMODIALYSIS Routine 02/12/2023 7:00 EDT ESRD (end stage renal disease) ([facility]) documented in this encounter Visit Diagnoses Diagnosis ESRD (end stage renal disease) ([facility])- Primary End stage renal disease Anemia of [...] intravenous, ONCE IN DIALYSIS, 1 dose, On Wed02/12/23 at 0730, Routine, DialysisIndications:ESRD (end stage renal disease) ([facility]),Anemia of chronic renal failure, unspecified CKD stage Given 02/12/2023 8:44 EDT 500 Units heparin injection 9,000 Units 9,000 Units, intravenous, ONCE IN DIALYSIS, 1 dose, On Wed02/12/23 at 0730, Routine, Dialysis, Now x1 bolus 4500 units to be given at the beginning of dialysis 1500 units/hour to be given over the course of dialysis (9000 units total). Stop 1 hour prior to end of treatment. To be administered per Policy [id number].Indications:ESRD (end stage renal disease) ([facility]) Given 02/12/2023 7:12 EDT 9,000 Units nepro w/ carb steady bolus 237 mL 237 mL (1 Package), oral, ONCE IN DIALYSIS, 1 dose, On Wed02/12/23 at 0730, RoutineIndications:ESRD (end stage renal disease) ([facility]),Abnormal albumin Given 02/12/2023 8:44 EDT 237 mL documented in this encounter Orders Dialysis Count Last Ordered Date First Orde red Date HEMODIALYSIS 1 02/12/2023 documented in this encounter Care Teams Director Physical Therapy Relationship Specialty Start Date End Date Adeola Villegas APRN [address] [place] [address] PCP - General 10/12/16 07/06/23 documented as of this encounter
--- OUTSIDE RECORDS SUMMARY | 2024-12-05 12:27 | XMS_ITS | Encounter Summary ---
Author Organization [facility] Address [address] [place] [address] Care Team Providers Care Baggage Screener Name Role Phone Adeola Villegas MONA Primary Care Provider [phone] Encounter Details Date Type Department Care Team (Late st Contact Info) Description 02/01/2023 Plan of Care Documentation [facility] [address] [place] [address] Social History Tobacco Use Types Packs/Day Years Used Date Smoking Tobacco: Every Day Cigarettes Smokeless Tobacco: Never PHQ-2 Answer Date Recorded PHQ-2 SUBTOTAL 1 01/27/2023 Sex and Gender Information Value Date Recorded Sex Assigned at Not on file Legal Sex Male 18:49 EST Gender Identity Male 07/07/2023 14:11 EDT Sexual Orientation Not on file documented as of this encounter Miscellaneous Notes * Dialysis Plan of Care Note - Alexa Estrada [facility] - 02/10/2023 1239 EDT Dialysis Plan of Care Office Lead's Assessment Patient initiated renal replacement therapy within the last 12 months: No Pt transferred from [facility] in [facility] and has been on dialysis since 02/14/2019 Patient Participated in Assessment: Yes Grievance Procedure Reviewed with Patient: Yes Current Living Situation: Lives with family Pt lives with his , Hoda, in their apartment in [place]. He rents the apartment and has a shared kitchen with the other tenant. The apartment has a back entry to his room and bathroom, but in order to get to the kitchen he has to go up 13 stairs whichis difficult due to knee pain. He has land which he is planning on building a home on in the 2022 Social Support: Family composition: Mr Bruner and his , Hoda live in their apartment in [place]. He has several brothers and one sister as well as extended family but does not like to bother them for support. He does have a son and a Daughter, both who live in [place]. His son requires his support in many ways after having survived childhood leukemia. He reports that his is his main support system, but he would consider his daughter, Lata Bruner, his secondary contact. Supportive friends: Yes Community/Scientology involvement: None Physical Limitations: Knee pain makes it difficult to go up and down stairs Physical Limitations Present: Yes: knee pain makes it difficult to go up and down stairs Ambulation Status: Ambulates independently Physical Aids Used by Patient: None DME Vendor: none Current barriers to performing ADL???s: Independent with all ADL's Current barriers to independence: Stairs to residence: 13 Change in Physical/Medical Status and Hospitalization Change in physical or medical status: No Hospitalization in Previous 3 Months: No Emergency Room Visit in Previous 3 Months: No Education: Highest level of education: high school diploma/GED Employment: Current Employment Status: Unemployed Desire to attend school/work: No Physically able to work: No Referred to vocational rehab/training: No Transportation Status: Transportation: Drives Self Payor: n/a, SW has provided pt with [employer] application for gas mileage reimbursement Financial/Insurance: Patient has Insurance: Yes Payor: [place] / Plan[place] / Product Type: [place] / Prescription Coverage: Yes Changes in insurance coverage since last assessment: No Patient has pending insurance applications: No Patient has been educated on Medicare eligibility due to ESRD: Yes Pt already has Medicare Current income source: 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 [facility] Patient has financial concerns: Yes: Pt reports he has unpaid medical bills from previous dialysis facility due to losing secondary insurance when his was moved to operations officer trust department at her employer Communication: Physical or cognitive barriers to communication: No Factors affecting communication/understanding: None Primary Language: Danish Patient is able to communicate in Danish: Yes Patient requires interpretation services: No Patient is able to read printed material in Danish: Yes Patient is able to read printed [...] prescribed dialysis treatment sessions: Yes Patient Concerns: Financial concerns and Transportation Loss of income due to being cut to operations officer trust department High heating bills and food costs- SHANNON provided pt with Fuel assistance and [employer] application Increased fuel costs - SHANNON provided pt with [employer] gas mileage reimbursement application and will explore the possibility of [facility] Health Literacy: How often do you need to have someone help you when you read instructions, pamphlets, or other written material from your doctor or pharmacy? Never Mental Health: Current or past mental health issues including feelings of anxiety or depression: No Previous mental health diagnosis? No Past or current suicidal thinking/attempt? No Current emotional status: Difficulties in coping, Reports anxiety pt shared that he has recently had more anxiety and wakes up in the middle of the night with anxiety. He is currently on anxiety medication which he reports is working for him. How does patient manage mental health: Pt utilizes medication for anxiety Patient/Family Strengths: Pt is friendly and engaging Interests/Spiritual/Scientology Practice: No spiritual practices Substance Use: Alcohol Use: No Drug Use: No Received treatment for alcohol or drug abuse: No Patient has concerns regarding alcohol/drug use: No Depression Screening: Is patient eligible to complete the PHQ-9: SHANNON will administer at 90 day POC Date patient last offered the PHQ-9: n/a KDQOL: KDQOL survey completion status: SW will administer at 90 day POC Reason for not completing KDQOL: n/a Advance Directives: Patient has Advance Directive: No: Advance Directive education provided? Yes: Appointed Healthcare Agent? No Pt reports he has filled out Advance Directives, although [facility] does not have them on file. SHANNON provided pt with blank Advance Directives to fill out. Comment: SHANNON met with pt today, he is very friendly and engaging. Pt has multiple concerns, mostly financial.His recently was cut to operations officer trust department at her job, and so he lost his secondary insurance. He has received multiple medical bills from [facility] as a result. Due to this loss of income, they are finding it hard to make ends meet. SHANNON provided pt with applications for Medicaid, [employer]KA gas mileage reimbursement, [employer] [place], [facility] financial assistance and fuel assistance. SW offered to provide any assistance needed to fill these out, and also recommended that the pt go to the financial navigators at [facility] for assistance with the Medicaid application. Pt states that at this time he thinks he can handle it but he will seek out either this SW or the patient financial navigator if he needs any help. SHANNON also provided pt with education on Advance Directives and Coping on Dialysis, pt would like to fill out new Advance directives forms. SW will submit any of these applications and assist with obtaining documentation needed. SW will remain available for support. * Dialysis Plan of Care Note - Alexa Estrada LICSW - 02/10/2023 1239 EDT Dialysis Plan of Care Initiation Note Patient Condition: Stable Date: 02/10/2023 POC Type: 90-Day POC Reason: Stable Initial set up by: NIKKIE Avery * Dialysis Plan of Care Note - Skye Gomez NP - 02/10/2023 1239 EDT Dialysis Plan of Care Provider's Assessment Began Dialysis on: 02/14/2019 ESRD secondary to: diabetic nephropathy Care Conference Date: 02/03/23 Patient Status: ESRD Past Renal History/ Interval Dialysis History Gerson began in-center dialysis in January 2019 at an outside center ([facility]) and recently transferred to [facility]. His ESRD is secondary to diabetic nephropathy. No other modalities of renal replacement therapy have been tried, pt is not interested in home dialysis and is not a candidate for transplant at this time, he continues to smoke. We continue to support and educate, he is stable on dialysis, he struggles with fluid and dietary compliance. Patient Active Problem List Diagnosis ??? 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 ESRD (end stage renal disease) (HCC-CMS) (HCC) ??? Essential (primary) hypertension ??? Hearing loss ??? Herniation of lumbar intervertebral disc with radiculopathy ??? Hyperlipidemia ??? Proteinuria ??? Right sided numbness ??? Secondary hyperparathyroidism (HCC-CMS) ??? TIA (transient ischemic attack) ??? Type II or unspecified type diabetes mellitus with neurological manifestations, uncontrolled(250.62) ??? Encounter for immunization ??? Hypoalbuminemia ??? Anemia of chronic renal failure ??? Abnormal albumin Physical Examination: NA Dialysis Prescription: Hemodialysis Therapy Plan In-Center Hemodialysis [...] Dialysis - UF Profile: None Dialysis Location: [facility] Primary Clamp Forklift Operator: Carlota Jin MD Assessment and Plan Appropriate for Home Dialysis: Patient declined Appropriate for Kidney Transplantation: No smoker Resuscitation Status Reviewed: Yes I have reviewed this document and discussed it in detail with the Interdisciplinary Care Team. I agree with the content except where I have provided corrections or amendments. * Dialysis Plan of Care Note - Yoanna Degroot RN - 02/10/2023 1239 EDT Dialysis Plan of Care Nurse Assessment Primary Diagnosis: Type 2 diabetes mellitus with diabetic chronic kidney disease Patient knowledge related to kidney failure: Fair Patient initiated renal replacement therapy within the last 12 months: No Modality Options Patient received information regarding modality options: Yes Patient understands modality/treatment options: Yes Patient is interested in pursuing home dialysis: No Patient is a home dialysis candidate: No Patient treatment choice: Hemodialysis, Incenter Transplantation: Patient received information regarding transplantation: Yes Patient referred to transplant program: Declines Transplant workup in progress: No On active transplant list: No Transplant Status 12/16/2022 Referral Status Declines Meets Criteria at Center? No Info Sent? No Workup in Progress? No Transplant Candidate? No On Active Transplant List? No Listing On-Hold? No Comments Patient does not meet transplant criteria due to daily smoking cigarettes Home Medications: Medications reviewed with patient and list updated: Yes Identified issues with home medications: no No orders of the defined types were placed in this encounter. Current Outpatient Medications on File Prior to Visit Medication Sig Dispense Refill ??? albuterol (ACCUNEB) 0.63 mg/3 mL nebulizer solution Take 0.63 mg by nebulization every 4 hours as needed for Wheezing. ??? amLODIPine (NORVASC) 10 mg tablet Take 10 mg by mouth daily. ??? atorvastatin (LIPITOR) 40 mg tablet Take 40 mg by mouth daily. ??? BABY ASPIRIN ORAL Take 81 mg by mouth daily. ??? calcium carbonate (TUMS) 200 mg calcium (500 mg) tablet,chewable Take 1 Tablet by mouth 3 timesdaily with meals. ??? carvediloL (COREG) 12.5 mg tablet Take 12.5 mg by mouth 2 times daily. ??? cholecalciferol, Vitamin D3, 25 mcg (1,000 unit) tablet Take 2 Tablets by mouth daily. 180 Tablet 3 ??? famotidine (PEPCID) 40 mg tablet Take 40 mg by mouth daily. ??? furosemide (LASIX) 20 mg tablet Take 1 Tablet by mouth 2 times daily. ??? hydrOXYzine (ATARAX) 25 mg tablet Take 25 mg by mouth at bedtime. ??? insulin detemir (LEVEMIR FLEXPEN SUBQ) Inject into the skin. ??? magnesium oxide (MAG-OX) 400 mg (241.3 mg magnesium) tablet Take 400 mg by mouth daily. ??? MULTIVITAMIN ORAL Take by mouth. ??? nortriptyline (PAMELOR) 25 mg capsule Take 25 mg by mouth at bedtime. ??? pregabalin (LYRICA) 100 mg capsule Take 100 mg by mouth 2 times daily. ??? sevelamer hydrochloride (RENAGEL) 800 mg tablet Take 2 Tablets by mouth 3 times daily. (Patienttaking differently: Take 1,600 mg by mouth 3 times daily. Pt reports he is now taking this.) 540 Tablet 3 Current Facility-Administered Medications on File Prior to Visit Medication Dose Route Frequency Provider Last Rate Last Admin ??? acetaminophen (TYLENOL) tablet 650 mg 650 mg oral Q4H PRN Carlota Jin MD 650 mg at 02/05/23 0723 Review of Systems: GENERAL Fever: Yes: yes Chills: No Weakness/Fatigue: No Recent Weight Loss/Gain: No Blurred Vision: No Decrease in Vision: No Corrective Lenses: No Loss of Hearing: Yes. Wears Hearing Aid? Yes Normal Speech: No CARDIOVASCULAR: Heart Rate: Regular Chest Pain: No Pacemaker Present: No Defibrillator Present: No RESPIRATORY: Lung Sounds: Clear Shortness of Breath: No Persistent Cough: No Hemoptysis: No Oxygen Use: No Tobacco (incl. Smokeless) Use: Current smokes cigarettes GI/: Nausea/Vomiting: No Diarrhea: No Constipation: No Incontinent: No Abdominal Distention: No Abdominal Pain: No Heart Burn/Reflux: No Appetite: Good Menstrual Period Present: N/A Enlarged Prostate: No Urine Output: Yes: pt reports some urine output Alcohol Use: Yes: occ beer PHYSICAL ACTIVITY / AMBULATION STATUS Physical Limitations Present: No Ambulation Status Ambulates independently Activities of Daily Living: Independent/Able to perform all ADLs without limitation Recent Change in Activity Level: No Receives Assistance for ADLs, Physical and/or Social Activities: No Referral needed? No Fall Assessment: 0-Dialysis patient is able to rise in a single movement MENTAL/ NEUROLOGICAL: Alert and Oriented: Yes Memory Loss: No Confusion: No Depression: No Insomnia: No Frequent Headaches: No Numbness in Extremities: No Weakness in Extremities: No Tremor Present: no Substance use: Current cigarettes PAIN ASSESSMENT Pain Scale: 0 If present, location / relieved by: none Lab Results Component Value Date HBSAG Negative 11/16/2022 HEPBHBQ 325.9 11/16/2022 HEPBSAB Positive 11/16/2022 HEPBCOREAB Negative 11/16/2022 XHCSCR2 Negative 11/16/2022 Immunization History Administered Date(s) Administered ??? Hepatitis B Vaccine Adult IM 08/09/2018, 03/14/2019, 04/03/2019, 05/01/2019, 09/04/2019, 11/06/2019, 12/04/2019, 01/01/2020, 05/06/2020 ??? Hepatitis B Vaccine Dialysis/Immunosup 4-dose IM 12/08/2021, 01/05/2022, 02/02/2022, 04/06/2022 ??? Influenza (whole) 08/01/2021, 07/28/2022 ??? Pneumococcal Conjugate Vaccine 13-Valent (PCV13) (PREVNAR-13) 0.5 mL IM (6 wks+) 08/02/2019 ??? Pneumococcal Conjugate Vaccine 20-Valent (PCV20) (PREVNAR-20) 0.5 mL IM (18 yrs+) 11/30/2022 ? ? Pneumococcal Polysaccharide (PPSV23) Vaccine (PNEUMOVAX-23) =>2YO SQ/IM 04/15/2001, 09/07/2011 ? ? Td (Adult) 5 Lf Vaccine (TENIVAC) Preservative Free =>7yo IM 10/30/1996 ? ? Tdap Vaccine =>7YO IM 05/31/2016 Patient Received Hepatitis B Vaccine Series: Is Patient Hepatitis B Susceptible? No Patient Received Influenza Vaccine: Yes: see above Patient Received Pneumonia Vaccine: Yes: see above Patient Screened for TB: Yes: see above Dialysis Adequacy: Lab Results Component Value Date PUR 72.3 01/25/2023 1.53 (Calculated from:; BUN Pre-Dialysis: 65 mg/dL at 01/25/2023 11:31; BUN Post- Dialysis: 18 mg/dL at 01/25/2023 11:31; Pre-Treatment Weight (kg): 92 at 01/25/2023 7:07; Post-Treatment Weight (kg): 88.6 at 01/25/2023 11:23; Duration of Treatment (minutes): 244 minutes at 01/25/2023 11:23) Hemodialysis Therapy Plan In-Center Hemodialysis 3 times [...] not miss txs Fluid Management: Prescribed Weight: - 01/25/2023 01/27/2023 01/29/2023 02/01/2023 02/03/2023 ( Kg ) 88.6 88.7 88.5 88.2 88.2 - 01/25/2023 01/27/2023 01/29/2023 02/01/2023 02/03/2023 mL/Kg/hr 9.44 10.49 11.16 10.44 11.57 InterDialytic +/- 02/03/2023 02/03/2023 02/03/2023 02/05/2023 02/05/2023 Gain/Loss 4.1 4.1 - 2.4 2.4 Wt (pre) 92.3 92.3 - 90.6 90.6 Wt (post) - - 88.2 - - Treatment UFR (ml:kg:hr) - - 11.57 - - BP (pre) 141/71 141/71 - 154/72 154/72 BP (post) 148/90 148/90 - 165/90 165/90 Pulse (pre) 74 74 - 68 68 Pulse(post) 70 70 - 67 67 Resp (/min) - - No flowsheet data found. Patient Achieves EDW (+1/-1kg) Majority of Treatments: Yes Blood Pressure: ... 02/03/2023 02/03/2023 02/03/2023 02/05/2023 02/05/2023 Pre-BP (sitting) 148/90 148/90 - 165/90 165/90 Post-BP (sitting) - - 114/64 - - Intra-dialytic Hypotension (> 3 treatments/month): No Intra-dialytic Hypertension (> 3 treatments/month): No Intra-dialytic Cramping (> 3 treatments/month): No Anemia Management: Lab Results Component Value Date WBC 9.42 02/03/2023 RBC 3.37 (L) 02/03/2023 HGB 10.7 (L) 02/03/2023 HCT 32.8 (L) 02/03/2023 MCV 97 (H) 02/03/2023 MCH 31.8 02/03/2023 MCHC 32.6 (L) 02/03/2023 PLT 267 02/03/2023 MPV 11.9 02/03/2023 RDWCV 13.2 02/03/2023 Lab Results Component Value Date IRON 46 (L) 01/25/2023 TIBC 224 (L) 01/25/2023 FERRITIN 691 (H) 01/25/2023 Current GEORGE dose: HEMODIALYSIS ANEMIA MEDS epoetin ken (EPOGEN) 20,000 unit/2 mL injection 500 Units 500 Units, intravenous, Weekly: Mon, Fri, ONCE IN DIALYSIS GEORGE Dose Adjustment: No change Current Iron Series: No Maintenance Iron Dose: No Iron Dose Adjustment: No change Oral Iron: No Patient is Free from Infection/Inflammation: Yes Dialysis Access: Hemodialysis Arteriovenous Access 02/13/19 (Active) AV Fistula Present 01/22/23 0720 Site Assessment Clean;Dry;Intact;Bruit heard;Thrill felt 02/03/23 07 Current State Active 02/03/23 07 Status Accessed 02/03/23 0729 Is Maturing N 02/03/23728 Local Anesthetic None 02/03/23728 Site Prep Chlorhexidine 02/03/23728 Venous Needle Size 15 G 02/03/23728 Arterial/Generic Needle Size 15 G 02/03/2329 Accessed by: Rosa 02/03/23728 Access Attempts 2 02/03/23728 Dressing Status/Care Clean/Dry/Intact 01/15/23 0715 Patient has AVF/AVG as primary access: Yes Patient has Catheter as primary access >90 days: No Access is free of infection: Yes Prescribed BFR is achieved: Yes Arterial and venous pressures are within facility limits: Yes Access Issues: No Access Referral Needed/Made: No * Dialysis Plan of Care Note - Shelley Eden RD - 02/10/2023 1239 EDT Dialysis Plan of Care Dietitian's Assessment Met with patient on 02/01/23 Family/caregivers or others present: none Information obtained from: patient Living situation/Family support: spouse Vocation/interests: working on building his house - 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 He noted knee pain limits his activity. Currently lives on brothers property with his . Per they have applied for several services including food stamps. Xander was asking about cutting down on his meds We have discussed continued high phos and importance of taking binders at all meals . Encouraged tums if he has snacks and revd high phos foods to limit Appetite: Good Appetite scale (0-10): Did not [...] anytime when asked to provide a recall. He noted going to [facility] for [facility] and said he had pork chop potato and asparagus recently Favorite Food: Seafood , pamela said he loves his veggies , shepherds pie and deli meat and eggs Fluid: Water, coffee, seltzer , juice Alcohol: HX ETOH abuse Added salt: sometimes Salt substitute usage: no Protein/calorie supplements: On nepro at HD Was taking Orgain protein powder Renal/other vitamins: cholecalciferol (Vitamin D3) - PATTERN CHANGER ordered 2000 IU daily MULTIVITAMIN ORAL Herbal/OTC supplements: None CKD/MBD medications: cholecalciferol (Vitamin D3) - 2000 IU daily sevelamer hydrochloride - 800 mg- 2 at every meal Other Medications Relevant to Nutrition: atorvastatin - 40 mg sevelamer hydrochloride - 800 mg LEVEMIR FLEXPEN SUBQ Nutrition Goal: Patient will have an Albumin greater than or equal to 4.0 and will be well nourished Prescribed Weight:88 Kg Post-Dialytic Weight:87.3 - 01/27/2023 01/29/2023 02/01/2023 02/03/2023 02/05/2023 ( Kg ) 88.7 88.5 88.2 88.2 87.3 Lab Results Component Value Date LABALBU 3.5 01/25/2023 BUNPRE 65 (H) 01/25/2023 URR: 72.308 (Calculated from:; BUN Pre-Dialysis: 65 mg/dL at 01/25/2023 11:31; BUN Post-Dialysis: 18 mg/dL at 01/25/2023 11:31) Kt/V: 1.53 (Calculated from:; BUN Pre-Dialysis: 65 mg/dL at 01/25/2023 11:31; BUN Post-Dialysis: 18 mg/dL at 01/25/2023 11:31; Pre-Treatment Weight (kg): 92 at 01/25/2023 7:07; Post-Treatment Weight (kg): 88.6 at 01/25/2023 11:23; Duration of Treatment (minutes): 244 minutes at 01/25/2023 11:23) PCR: 1.19 (Calculated from:; BUN Pre-Dialysis: 65 mg/dL at 01/25/2023 11:31; BUN Post-Dialysis: 18 mg/dL at 01/25/2023 11:31; Pre-Treatment Weight (kg): 92 at 01/25/2023 7:07; Post-Treatment Weight (kg): 88.6 at 01/25/2023 11:23; Duration of Treatment (minutes): 244 minutes at 01/25/2023 11:23; Age: 57 years) Barriers to obtaining adequate nutrition: Financial Assessment: Xander is eating well - we discussed eating adequate protein- will cont Nepro at HD to help improve his low albumin. He has had stable wt since starting HD Current BMI 28 Education: Verbal Plan: Encouraged low Na HBV Protein sources daily Continue Nepro at HD Fluid Removal & Volume Status Goal: UFR < 10 mL/Kg/hr UFR: - 01/27/2023 01/29/2023 02/01/2023 02/03/2023 02/05/2023 mL/Kg/hr 10.49 11.16 10.44 11.57 9.53 Assessment: High fluid gains Education: Verbal Plan: Reinforced FR especially on long stretches Discussed trying thirst quencher techniques Encouraged to avoid salt Electrolytes Goal: Dialysis patients will have a Potassium level between 4.0 - 5.5 Lab Results Component Value Date K 5.2 (H) 01/25/2023 NA 134 (L) 01/25/2023 CO2 25 01/25/2023 Assessment: Potassium: High Education: Verbal Plan: Discussed high k foods to limit Mineral Bone Disease Goal: Dialysis patients will have: ??? Corrected and Non Corrected Calcium level between 8.5 - 10.2 ??? Phosphorus level between 3.5 - 5.5 ??? Magnesium level between 1.7 - 2.8 ??? Parathyroid Hormone level between 175 - 800 Lab Results Component Value Date CALCCA 9.4 01/25/2023 CALCIUM 9.0 01/25/2023 PHOS 7.1 (H) 01/25/2023 PLT 267 02/03/2023 PTH 239 (H) 01/25/2023 MG 2.8 01/25/2023 ALKPHOS 85 01/25/2023 Assessment: Calcium: Within normal limits Calcium (calc): Within normal limits Phosphorus: High Magnesium: Within normal limits iPTH: Within normal limits Education: Verbal Plan: Discussed high phos foods to limit Encouraged compliance with renvela Encouaged to take tums with snacks Vitamin Status Goal: Dialysis patients will have: ?? Vitamin D level : 30 - 50 ?? Vitamin B-12 level : 211 - 911 pg/mL ?? Folate level : >5.4 ng/mL Lab Results Component Value Date VITD 27 (L) 11/16/2022 [id number] 11/16/2022 FOLATE 17.3 11/16/2022 HGB 10.7 (L) 02/03/2023 MCV 97 (H) 02/03/2023 Assessment: 25 OH Vitamin D: Low Vitamin B12: Within normal limits Folate: Within normal limits Plan: On D3 supplement and renal vitamin Diabetes No results found for: HGBA1C, FRUCTOSAMINE, FRUCTMFRUCT Comments: pt is on insulin - encouraged to check bld sugars Nutrition Prescription/ Recommendation Calories: BMR 1714 x 1.2= 2055 Protein: 100 g daily Sodium: <2400 mg Potassium: 3000 mg daily Phosphorous: 1300 mg Fluid: 1.5 L daily Education / Understanding Education/materials provided: Nutrition Lab Report Assessment of Understanding: needs reinforcement Additional comments: pt is [place] Shelley Eden RD, CD documented in this encounter Plan of Treatment Upcoming Encounters Date Type Department Care Team (Late st Contact Info) Description 12/06/2024 6:45 EST Treatment [facility] [address] [place], [place] [id number] Carlota Jin MD 1 [facility], [facility] [address] [place] [phone] 12/08/2024 6:45 EST Treatment [facility] [address] [place], [place] [id number] Carlota Jin MD 1 [facility], [facility] [address] [place] [phone] 12/11/2024 6:45 EST Treatment [facility] [address] [place] [address] Carlota Jin MD 1 [facility], [facility] 2 [place] [phone] 12/13/2024 6:45 EST Treatment [facility] [address] [place], [place] [id number] Carlota Jin MD 1 [facility], [facility] 2 [place] [phone] 12/15/2024 6:45 EST Treatment [facility] [address] [place], [place] [id number] Carlota Jin MD 1 [facility], [facility] 2 [place] [phone] 12/18/2024 6:45 EST Treatment [facility] [address] [place], [place] [address] Carlota Jin MD 1 [facility], [facility] 2 [place] [phone] 12/20/2024 6:45 EST Treatment [facility] [address] [place] [address] Carlota Jin MD 1 [facility], [facility] 2 [place] [phone] 12/22/2024 6:45 EST Treatment [facility] [place] [address] [place], [place] [id number] Carlota Jin MD 1 [facility], [address] [phone] 12/25/2024 6:45 EST Treatment [facility] [address] [place], [place] [id number] Carlota Jin MD 1 [facility], [address] [phone] 12/27/2024 6:45 EST Treatment [facility] [address] [place], [place] [id number] Carlota Jin MD 1 [facility], [facility] 2 [place] [phone] 12/29/2024 6:45 EST Treatment [facility] [address] [place], [place] [id number] Carlota Jin MD 1 [facility], [facility] 2 [place] [phone] 01/01/2025 6:45 EDT Treatment [facility] [address] [place], [place] [id number] Carlota Jin MD 1 [facility], [facility] 2 [place] [phone] 01/03/2025 6:45 EDT Treatment [facility] [address] [place], [place] [id number] Carlota Jin MD 1 [facility], [facility] 2 [place] [phone] 01/05/2025 6:45 EDT Treatment [facility] [address] [place], [place] [id number] Carlota Jin MD [address] [place] [address], [address] [phone] 01/08/2025 6:45 EDT Treatment [facility] [address] [place], [place] [id number] Carlota Jin MD [address] [place] [address], [facility] 2 [place] [phone] 01/10/2025 6:45 EDT Treatment [facility] [address] [place], [place] [id number] Carlota Jin MD 1 [facility], [facility] 2 [place] [phone] 01/12/2025 6:45 EDT Treatment [facility] [place] [address] [place], [place] [id number] Carlota Jin MD 1 [facility], [facility] 2 [place] [phone] 01/15/2025 6:45 EDT Treatment [facility] [address] [place], [place] [id number] Carlota Jin MD 1 [facility], [facility] 2 [place] [phone] 01/17/2025 6:45 EDT Treatment [facility] [address] [place], [place] [id number] Carlota Jin MD 1 [facility], [facility] 2 [place] [phone] 01/19/2025 6:45 EDT Treatment [facility] [place] [address] [place], [place] [id number] Carlota Jin MD 1 [facility], [facility] 2 [place] [phone] 01/22/2025 6:45 EDT Treatment [facility] [address] [place], [place] [id number] Carlota Jin MD 1 [facility], [facility] 2 [place] [phone] 01/24/2025 6:45 EDT Treatment [facility] [address] [place], [place] [id number] Carlota Jin MD 1 [facility], [facility] 2 [place] [phone] 01/26/2025 6:45 EDT Treatment [facility] [address] [place], [place] [id number] Carlota Jin MD 1 [facility], [facility] 2 [place] [phone] 01/29/2025 6:45 EDT Treatment [facility] [address] [place], [place] [id number] Carlota Jin MD 1 [facility], [facility] 2 [place] [phone] 01/31/2025 6:45 EDT Treatment [facility] [place] [address] [place], [place] [id number] Carlota Jin MD 1 [facility], [facility] 2 [place] [phone] 02/02/2025 6:45 EDT Treatment [facility] [address] [place] [address] Carlota Jin MD 1 [facility], [facility] 2 [place] [phone] 02/05/2025 6:45 EDT Treatment [facility] [address] [place], [place] [id number] Carlota Jin MD 1 [facility], [facility] 2 [place] [phone] 02/07/2025 6:45 EDT Treatment [facility] [address] [place], [place] [id number] Carlota Jin MD 1 [facility], [facility] 2 [place] [phone] 02/09/2025 6:45 EDT Treatment [facility] [address] [place], [place] [id number] Carlota Jin MD [address] [place] [address], [address] [phone] 02/12/2025 6:45 EDT Treatment [facility] [address] [place], [place] [id number] Carlota Jin MD [address] [place] [address], [address] [phone] 02/14/2025 6:45 EDT Treatment [facility] [address] [place], [place] [id number] Carlota Jin MD [address] [place] [address], [facility] 2 [place] [phone] 02/16/2025 6:45 EDT Treatment [facility] [address] [place], [place] [id number] Carlota Jin MD 1 [facility], [facility] 2 [place] [phone] 02/19/2025 6:45 EDT Treatment [facility] [address] [place], [place] [id number] Carlota Jin MD 1 [facility] [address] [place] [phone] 02/21/2025 6:45 EDT Treatment [facility] [address] [place] [address] Carlota Jin MD 1 [facility] [address] [place] [phone] documented as of this encounter Visit Diagnoses * Dialysis POC IDT Note - Alexa Estrada [facility] - 02/10/2023 1239 EDT Dialysis Interdisciplinary Team Final PLAN OF CARE Note Meeting Date: 02/10/2023 Patient/Family Invited to POC Meeting: Yes Patient Present: Yes Based upon the findings of these assessments, the patient is considered to be: Stable Monthly Lab Results: Lab Results Component Value Date LABALBU 3.5 01/25/2023 CALCIUM 9.0 01/25/2023 CALCCA 9.4 01/25/2023 PHOS 7.1 (H) 01/25/2023 PTH 239 (H) 01/25/2023 MG 2.8 01/25/2023 K 5.2 (H) 01/25/2023 HGB 10.2 (L) 01/27/2023 LABIRON 21 01/25/2023 FERRITIN 691 (H) 01/25/2023 WBC 9.36 01/27/2023 Immunization History Administered Date(s) Administered ??? Hepatitis B Vaccine Adult IM 08/09/2018, 03/14/2019, 04/03/2019, 05/01/2019, 09/04/2019, 11/06/2019, 12/04/2019, 01/01/2020, 05/06/2020 ??? Hepatitis B Vaccine Dialysis/Immunosup 4-dose IM 12/08/2021, 01/05/2022, 02/02/2022, 04/06/2022 ??? Influenza (whole) 08/01/2021, 07/28/2022 ??? Pneumococcal Conjugate Vaccine 13-Valent (PCV13) (PREVNAR-13) 0.5 mL IM (6 wks+) 08/02/2019 ??? Pneumococcal Conjugate Vaccine 20-Valent (PCV20) (PREVNAR-20) 0.5 mL IM (18 yrs+) 11/30/2022 ? ? Pneumococcal Polysaccharide (PPSV23) Vaccine (PNEUMOVAX-23) =>2YO SQ/IM 04/15/2001, 09/07/2011 ? ? Td (Adult) 5 Lf Vaccine (TENIVAC) Preservative Free =>7yo IM 10/30/1996 ? ? Tdap Vaccine =>7YO IM 05/31/2016 Current Outpatient Medications Medication ??? albuterol (ACCUNEB) 0.63 mg/3 mL nebulizer solution ??? amLODIPine (NORVASC) 10 mg tablet ??? atorvastatin (LIPITOR) 40 mg tablet ??? azithromycin (ZITHROMAX) 250 mg tablet ??? BABY ASPIRIN ORAL ??? calcium carbonate (TUMS) 200 mg calcium (500 mg) tablet,chewable ??? carvediloL (COREG) 12.5 mg tablet ??? cholecalciferol, Vitamin D3, 25 mcg (1,000 unit) tablet ??? famotidine (PEPCID) 40 mg tablet ??? furosemide (LASIX) 20 mg tablet ??? hydroCHLOROthiazide (HYDRODIURIL) 25 mg tablet ??? hydrOXYzine (ATARAX) 25 mg tablet ??? insulin detemir (LEVEMIR FLEXPEN SUBQ) ??? MULTIVITAMIN ORAL ??? nortriptyline (PAMELOR) 25 mg capsule ??? pregabalin (LYRICA) 100 mg capsule ??? sevelamer hydrochloride (RENAGEL) 800 mg tablet No current facility-administered medications for this visit. Transplant Info: Transplant Status 12/16/2022 Referral Status Declines Meets Criteria at Center? No Info Sent? No Workup in Progress? No Transplant Candidate? No On Active Transplant List? No Listing On-Hold? No Comments Patient does not meet transplant criteria due to daily smoking cigarettes Dialysis Adequacy: Goal: Hemodialysis patients will have a Kt/V goal of > 1.2 Kt/V: 1.53 (Calculated from:; BUN Pre-Dialysis: 65 mg/dL at 01/25/2023 11:31; BUN Post-Dialysis: 18 mg/dL at 01/25/2023 11:31; Pre-Treatment Weight (kg): 92 at 01/25/2023 7:07; Post-Treatment Weight (kg): 88.6 at 01/25/2023 11:23; Duration of Treatment (minutes): 244 minutes at 01/25/2023 11:23) Plan/Time Line: At goal Volume Status Goal: Patient will remain free from intradialytic symptoms and maintain appropriate EDW Pre and post BP (sitting) ... 01/27/2023 01/29/2023 01/29/2023 01/29/2023 02/01/2023 02/01/2023 02/01/2023 Pre-BP (sitting) 102/63 170/78 170/78 - 163/79 163/79 - Post-BP (sitting) 113/65 - - 146/78 - - 144/78 Interdialytic Change 01/25/2023 01/27/2023 01/27/2023 01/29/2023 01/29/2023 02/01/2023 02/01/2023 Interdialytic fluid gain/loss (kg) 0.105 kg 0.111 kg 0.111 kg 0.108 kg 0.108 kg 0.096 kg 0.096 kg Plan/Timeline: At goal, ongoing education and support Anemia Management Goal: Patient will maintain a Hgb > 9.0mg/dL - < 11.0mg/dL. Goal: Patient will maintain adequate iron stores as indicated by: Ferritin > 200ng/dL - < 800ng/dL. Lab Results Component Value Date HGB 10.2 (L) 01/27/2023 FERRITIN 691 (H) 01/25/2023 PLT 225 01/27/2023 [id number] 688 11/16/2022 FOLATE 17.3 11/16/2022 HEMODIALYSIS ANEMIA MED[facility] epoetin ken (EPOGEN) 20,000 unit/2 mL injection 500 Units 500 Units, intravenous, Weekly: Mon, Fri, ONCE IN DIALYSIS This patient does not have an active medication from one of the medication groupers. This patient does not have an active medication from one of the medication groupers. Plan/Time Line: At goal, ongoing reassessment Access Management Goal: Patient will have an access that provides a blood flow rate adequate to achieve the dialysis prescription. Goal: Patient access will be free of complications. Goal: Patient has the most appropriate and optimal vascular access. Hemodialysis Arteriovenous Access 02/13/19 (Active) 02/13/19 Earliest Known Present: Hand Hygiene Completed: Orientation: Anterior;Left Access Type: Arteriovenous fistula Access Location: Upper arm Site Prep: Patient Tolerance: Usable Date: Earliest Known Removed: AV Fistula Present 01/22/23719 Site Assessment Clean;Dry;Intact;Bruit heard;Thrill felt 02/01/23713 Current State Active 02/01/23713 Status Accessed 02/01/23713 Is Maturing N 02/01/23713 Local Anesthetic None 02/01/23713 Site Prep Chlorhexidine 02/01/23713 Venous Needle Size 15 G 02/01/23713 Arterial/Generic Needle Size 15 G 02/01/23713 Accessed by: Rosa 02/01/23713 Access Attempts 2 02/01/23713 Dressing Status/Care Clean/Dry/Intact 01/15/23714 Plan/Time Line: At goal, ongoing reassessment Mineral and Renal Bone Disease Management Goal: [...] pg/mL. Lab Results Component Value Date PHOS 7.1 (H) 01/25/2023 CALCIUM 9.0 01/25/2023 CALCCA 9.4 01/25/2023 PTH 239 (H) 01/25/2023 ALKPHOS 85 01/25/2023 Plan/Time Line: Revd high phos foods to limit Encouraged compliance with his Renvela at meals Potassium Management Goal: Patient will have a potassium < 6.0 meq/dL. Lab Results Component Value Date K 5.2 (H) 01/25/2023 K 5.9 (H) 01/04/2023 K 6.7 (H) 12/28/2022 K 5.8 (H) 11/30/2022 Last Dialysis Prescription released on: 02/01/2023 Selected bath: Potassium 2 mEq/L Calcium 2.5 mEq/L Some recent data might be hidden Plan/Time Line: Pt meeting goals , cont monthly review of labs and education as needed Nutrition Management Goal: Patient will have an albumin level >= 4.0 mg/dL. Lab Results Component Value Date LABALBU 3.5 01/25/2023 LABALBU 3.5 12/28/2022 LABALBU 3.4 11/30/2022 LABALBU 3.6 11/16/2022 Plan/Time Line: Encouraged lower Na HBV protein foods 2-3 x day and cont nepro at HD Treatment Modality/Transplantation Goal: Patient will be informed of treatment modality choices and receive preferred treatment if deemed a candidate. Plan/Time Line: ongoing Treatment Attendance Goal: Patient will be present at prescribed, scheduled treatments. Plan/Time Line: ongoing documented in this encounter Care Teams Baggage Screener Relationship Specialty Start Date End Date Adeola Villegas APRN [address] [place] [address] PCP - General 10/12/16 07/06/23 documented as of this encounter
--- OUTSIDE RECORDS SUMMARY | 2024-12-05 12:27 | XMS_ITS | Encounter Summary ---
Author Organization [facility] Address [address] [place] [address] Care Team Providers Care Contract Administration Coordinator Name Role Phone Adeola Villegas MONA Primary Care Provider [phone] Encounter Details Date Type Department Care Team (Late st Contact Info) Description 02/26/2023 7:15 EDT Treatment [facility] [address] [place] [id number] Carlota Jin MD 1 [facility], Level 2 [place] [address] ESRD (end stage renal disease) ([facility]) (Primary Dx); Anemia of [...] - Temperature - - Respiratory Rate 16 02/26/2023 0703 EDT Oxygen Saturation - - Inhaled Oxygen Concentration - - Weight 88.1 kg (194 lb 3.6 oz) 02/26/2023 0703 E DT Height - - Body Mass Index 28.27 01/25/2023 0751 EDT documented in this encounter Miscellaneous Notes * Flowsheet Note - Melissa Crespo RN - 02/26/2023 1513 EDT 02/26/23 1121 Post-Hemodialysis Assessment Total Blood Processed (L) 76.32 Liters On Line Clearance: spKt/V 1.14 spKt/V Dialyzer Clearance Lightly streaked Treatment UFR (ml:kg:hr) 8.04 ml:kg:hr Final Critline Profile (%/hr) 0.12 Final Profile Profile A Fluid Removed (L) 3 L Post-Dialysis Scale Weight 86.7 kg (191 lb 2.2 oz) Wheelchair Weight 0 kg (0 lb) Prosthesis Weight 1.4 kg (3 lb 1.4 oz) Post-Treatment Weight (kg) 85.3 Treatment Weight Change (kg) 2.8 kg Day Target Weight (kg) 85.6 Post Sitting/Lying BP 144/66 Post Sitting/Lying pulse 57 Post Standing BP 112/58 Post Standing Pulse 70 Temp 36 ??C (96.8 ??F) Temp [...] Description 12/06/2024 6:45 EST Treatment [facility] [address] [place] [id number] Carlota Jin MD 1 [facility], [facility] 2 [place] [address] 12/08/2024 6:45 EST Treatment [facility] [address] [place] [address] Carlota Jin MD 1 [facility], [facility] 2 [place] [phone] 12/11/2024 6:45 EST Treatment [facility] [place] [address] [place], [place] [id number] Carlota Jin MD 1 [facility], [facility] 2 [place] [phone] 12/13/2024 6:45 EST Treatment [facility] - [place] [address] [place], [place] [id number] Carlota Jin MD 1 [facility], [facility] 2 [place] [phone] 12/15/2024 6:45 EST Treatment [facility] - [place] [address] [place], [place] [id number] Carlota Jin MD 1 [facility], [facility] 2 [place] [phone] 12/18/2024 6:45 EST Treatment [facility] [address] [place], [place] [id number] Carlota Jin MD 1 [facility], [facility] 2 [place] [phone] 12/20/2024 6:45 EST Treatment [facility] [address] [place], [place] [id number] Carlota Jin MD 1 [facility], [facility] 2 [place] [phone] 12/22/2024 6:45 EST Treatment [facility] [place] [address] [place], [place] [address] Carlota Jin MD 1 [facility], [facility] 2 [place] [phone] 12/25/2024 6:45 EST Treatment [facility] [place] [address] [place], [place] [id number] Carlota Jin MD 1 [facility], [facility] 2 [place] [phone] 12/27/2024 6:45 EST Treatment [facility] [place] [address] [place], [place] [id number] Carlota Jin MD 1 [facility], [facility] 2 [place] [phone] 12/29/2024 6:45 EST Treatment [facility] [place] [address] [place], [place] [id number] Carlota Jin MD 1 [facility], [facility] 2 [place] [phone] 01/01/2025 6:45 EDT Treatment [facility] [place] [address] [place], [place] [address] Carlota Jin MD 1 [facility], [facility] 2 [place] [phone] 01/03/2025 6:45 EDT Treatment [facility] [place] [address] [place], [place] [id number] Carlota Jin MD 1 [facility], [facility] 2 [place] [phone] 01/05/2025 6:45 EDT Treatment [facility] [place] [address] [place], [place] [address] aCrlota Jin MD 1 [facility], [facility] 2 [place] [phone] 01/08/2025 6:45 EDT Treatment [facility] [place] [address] [place], [place] [phone] Carlota Jin MD 1 [facility], [facility] 2 [place] [phone] 01/10/2025 6:45 EDT Treatment [facility] [place] [address] [place], [place] [address] Carlota Jin MD 1 [facility], [facility] 2 [place] [phone] 01/12/2025 6:45 EDT Treatment [facility] [place] [address] [place] [address] Carlota Jin MD 1 [facility], [facility] 2 [place] [phone] 01/15/2025 6:45 EDT Treatment [facility] [place] [address] [place], [place] [address] Carlota Jin MD 1 [facility], [facility] 2 [place] [phone] 01/17/2025 6:45 EDT Treatment [facility] [place] [address] [place], [place] [phone] Carlota Jin MD 1 [facility], [facility] 2 [place] [phone] 01/19/2025 6:45 EDT Treatment [facility] [place] [address] [place], [place] [phone] Carlota Jin MD 1 [facility], [facility] 2 [place] [phone] 01/22/2025 6:45 EDT Treatment [facility] [place] [address] [place], [place] [phone] Carlota Jin MD 1 [facility], [address] [phone] 01/24/2025 6:45 EDT Treatment [facility] [place] [address] [place], [place] [phone] Carlota Jin MD [address] [place] [address], [facility] 2 [place] [phone] 01/26/2025 6:45 EDT Treatment [facility] [place] [address] [place], [place] [phone] Carlota Jin MD 1 [facility], [facility] 2 [place] [phone] 01/29/2025 6:45 EDT Treatment [facility] [place] [address] [place], [place] [phone] Carlota Jin MD 1 [facility], [facility] 2 [place] [phone] 01/31/2025 6:45 EDT Treatment [facility] [place] [address] [place], [place] [address] Carlota Jin MD 1 [facility], [facility] 2 [place] [phone] 02/02/2025 6:45 EDT Treatment [facility] [place] [address] [place], [place] [phone] Carlota Jin MD 1 [facility], [facility] 2 [place] [phone] 02/05/2025 6:45 EDT Treatment [facility] [place] [address] [place], [place] [phone] Carlota Jin MD 1 [facility], [facility] 2 [place] [phone] 02/07/2025 6:45 EDT Treatment [facility] [address] [place], [place] [address] Carlota Jin MD 1 [facility], [facility] 2 [place] [phone] 02/09/2025 6:45 EDT Treatment [facility] [place] [address] [place], [place] [phone] Carlota Jin MD 1 [facility], [facility] 2 [place] [phone] 02/12/2025 6:45 EDT Treatment [facility] [place] [address] [place], [place] [phone] Carlota Jin MD [address] [phone] 02/14/2025 6:45 EDT Treatment [facility] [address] [place], [place] [phone] Carlota Jin MD [address] [phone] 02/16/2025 6:45 EDT Treatment [facility] [address] [place], [place] [phone] Carlota Jin MD [address] [phone] 02/19/2025 6:45 EDT Treatment [facility] [address] [place], [place] [phone] Carlota Jin MD [address] [phone] 02/21/2025 6:45 EDT Treatment [facility] [address] [place], [place] [phone] Carlota Jin MD [address] [phone] documented as of this encounter Procedures Procedure Name Priority Date/Time Associated Diagnosis Comments HEMODIALYSIS Routine 02/26/2023 7:03 EDT ESRD (end stage renal disease) ([facility] [...] intravenous, ONCE IN DIALYSIS, 1 dose, On Wed02/26/23 at 0730, Routine, DialysisIndications:ESRD (end stage renal disease) ([facility]),Anemia of chronic renal failure, unspecified CKD stage Given 02/26/2023 8:32 EDT 500 Units heparin injection 9,000 Units 9,000 Units, intravenous, ONCE IN DIALYSIS, 1 dose, On Wed02/26/23 at 0730, Routine, Dialysis, Now x1 bolus 4500 units to be given at the beginning of dialysis 1500 units/hour to be given over the course of dialysis (9000 units total). Stop 1 hour prior to end of treatment. To be administered per Policy [id number].Indications:ESRD (end stage renal disease) ([facility]) Given 02/26/2023 7:44 EDT 9,000 Units nepro w/ carb steady bolus 237 mL 237 mL (1 Package), oral, ONCE IN DIALYSIS, 1 dose, On Wed02/26/23 at 0730, RoutineIndications:ESRD (end stage renal disease) ([facility]),Abnormal albumin Given 02/26/2023 8:34 EDT 237 mL documented in this encounter Orders Dialysis Count Last Ordered Date First Orde red Date HEMODIALYSIS 1 02/26/2023 documented in this encounter Care Teams Contract Administration Coordinator Relationship Specialty Start Date End Date Adeola Villegas APRN [address] [place] [address] PCP - General 10/12/16 07/06/23 documented as of this encounter
--- OUTSIDE RECORDS SUMMARY | 2024-12-05 12:27 | XMS_ITS | Encounter Summary ---
Author Organization [facility] Address [address] [place] [address] Care Team Providers Care Production Operations Manager Name Role Phone Adeola Villegas APRN Primary Care Provider [phone] Encounter Details Date Type Department Care Team (Late st Contact Info) Description 02/26/2023 [facility]ation [facility] [address] [place], [place] [phone] Melissa Crespo, RN Social History Tobacco Use [...] 12/06/2024 6:45 EST Treatment [facility] [address] [place] [address] Carlota Jin MD 1 [facility] Level [address] [place] [address] 12/08/2024 6:45 EST Treatment [facility] [address] [place] [address] Carlota Jin MD 1 [facility] 2 [place] [phone] 12/11/2024 6:45 EST Treatment [facility] [place] [address] [place], [place] [address] Carlota Jin MD 1 [facility], [facility] 2 [place] [phone] 12/13/2024 6:45 EST Treatment [facility] [place] [address] [place], [place] [phone] Carlota Jin MD 1 [facility][1], [facility] 2 [place] [phone] 12/15/2024 6:45 EST Treatment [facility] [place] [address] [place], [place] [phone] Carlota Jin MD 1 [facility][1], [facility] 2 [place] [phone] 12/18/2024 6:45 EST Treatment [facility] [address] [place] [address] Carlota Jin MD 1 [facility] 2 [place] [phone] 12/20/2024 6:45 EST Treatment [facility] [place] [address] [place], [place] [phone] Carlota Jin MD 1 [facility][1], [facility] 2 [place] [phone] 12/22/2024 6:45 EST Treatment [facility] [place] [address] [place], [place] [phone] Carlota Jin MD 1 [facility][1], [facility] 2 [place] [phone] 12/25/2024 6:45 EST Treatment [facility] [place] [address] [place], [place] [phone] Carlota Jin MD 1 [facility][1], [facility] 2 [place] [phone] 12/27/2024 6:45 EST Treatment [facility] [place] [address] [place], [place] [phone] Carlota Jin MD 1 [facility][1], [facility] 2 [place] [phone] 12/29/2024 6:45 EST Treatment [facility] [place] [address] [place], [place] [phone] Carlota Jin MD 1 [facility][1], [facility] 2 [place] [phone] 01/01/2025 6:45 EDT Treatment [facility] [place] [address] [place], [place] [phone] Carlota Jin MD 1 [facility][1], [facility] 2 [place] [phone] 01/03/2025 6:45 EDT Treatment [facility] [place] [address] [place], [place] [phone] Carlota Jin MD 1 [facility] Level [address] [place] [phone] 01/05/2025 6:45 EDT Treatment [facility] [place] [address] [place], [place] [address] Carlota Jin MD 1 [facility], [facility] 2 [place] [phone] 01/08/2025 6:45 EDT Treatment [facility] [place] [address] [place], [place] [id number] Carlota Jin MD 1 [facility][1], [facility] 2 [place] [phone] 01/10/2025 6:45 EDT Treatment [facility] [place] [address] [place] [address] Carlota Jin MD 1 [facility][1], [facility] 2 [place] [phone] 01/12/2025 6:45 EDT [facility] [address] [place] [address] Carlota Jin MD 1 [facility] 2 [place] [phone] 01/15/2025 6:45 EDT Treatment [facility] [address] [place], [place] [id number] Carlota Jin MD 1 [facility][1], [facility] 2 [place] [phone] 01/17/2025 6:45 EDT Treatment [facility] [place] [address] [place], [place] [phone] Carlota Jin MD 1 [facility][1], [facility] 2 [place] [phone] 01/19/2025 6:45 EDT Treatment [facility] [place] [address] [place], [place] [phone] Carlota Jin MD 1 [facility][1], [facility] 2 [place] [phone] 01/22/2025 6:45 EDT Treatment [facility] [place] [address] [place], [place] [phone] Carlota Jin MD [address] [place] [address], [facility] 2 [place] [phone] 01/24/2025 6:45 EDT Treatment [facility] [place] [address] [place], [place] [address] Carlota Jin MD 1 [facility][1], [facility] 2 [place] [phone] 01/26/2025 6:45 EDT Treatment [facility] [place] [address] [place], [place] [phone] Carlota Jin MD 1 [facility][1], [facility] 2 [place] [phone] 01/29/2025 6:45 EDT Treatment [facility] [place] [address] [place], [place] [phone] Carlota Jin MD 1 [facility][1], [facility] 2 [place] [phone] 01/31/2025 6:45 EDT Treatment [facility] [place] [address] [place], [place] [phone] Carlota Jin MD 1 [facility] 2 [place] [phone] 02/02/2025 6:45 EDT Treatment [facility] [place] [address] [place], [place] [phone] Carlota Jin MD 1 [facility][1], [address] [phone] 02/05/2025 6:45 EDT Treatment [facility] [place] [address] [place], [place] [phone] Carlota Jin MD 1 [facility][1], [address] [phone] 02/07/2025 6:45 EDT Treatment [facility] [place] [address] [place], [place] [phone] Carlota Jin MD 1 [facility][1], [facility] 2 [place] [phone] 02/09/2025 6:45 EDT Treatment [facility] [place] [address] [place], [place] [phone] Carlota Jin MD 1 [facility][1], [facility] 2 [place] [phone] 02/12/2025 6:45 EDT Treatment [facility] [place] [address] [place], [place] [phone] Carlota Jin MD [address] [phone] 02/14/2025 6:45 EDT Treatment [facility] [place] [address] [place], [place] [phone] Carlota Jin MD [address] [place] [phone] 02/16/2025 6:45 EDT Treatment [facility] [place] [address] [place], [place] [phone] Carlota Jin MD [address] [place] [phone] 02/19/2025 6:45 EDT Treatment [facility] [place] [address] [place], [place] [phone] Carlota Jin MD [address] [place] [phone] 02/21/2025 6:45 EDT Treatment [facility] [place] [address] [place], [place] [phone] Carlota Jin MD [address] [place] [phone] documented as of this encounter Visit Diagnoses Not on filedocumented in this encounter Care Teams Production Operations Manager Relationship Specialty Start Date End Date Villegas, Tillman, [employer] [address] [place] [address] PCP - General 10/12/16 07/06/23 documented as of this encounter
--- OUTSIDE RECORDS SUMMARY | 2024-12-05 12:27 | XMS_ITS | Encounter Summary ---
Author Organization [facility] Address [address] [place] [address] Care Team Providers Care Driver Trainee Name Role Phone Adeola Villegas APRN Primary Care Provider [phone] Encounter Details Date Type Department Care Team (Late st Contact Info) Description 02/22/2023 Documentation Visit [facility] [address] [place], [place] [phone] Melissa Crespo, RN Social History Tobacco Use [...] EST Treatment [facility] [address] [place] [address] Carlota Jin MD 1 [facility] Level [address] [place] [address] 12/08/2024 6:45 EST Treatment [facility] [address] [place] [address] Carlota Jin MD 1 [facility], [facility] 2 [place] [phone] 12/11/2024 6:45 EST Treatment [facility] Dialysi - [place] [address] [place], [place] [address] Carlota Jin MD 1 [facility], [facility] 2 [place] [phone] 12/13/2024 6:45 EST Treatment [facility] Dialysi - [place] [address] [place], [place] [id number] Carlota Jin MD 1 [facility], [facility] 2 [place] [phone] 12/15/2024 6:45 EST Treatment [facility]ys[facility] - [place] [address] [place], [place] [id number] Carlota Jin MD 1 [facility], [facility] 2 [place] [phone] 12/18/2024 6:45 EST Treatment [facility] [address] [place] [address] Carlota Jin MD 1 [facility], [facility] 2 [place] [phone] 12/20/2024 6:45 EST Treatment [facility] Dialysi [place] [address] [place], [place] [id number] Carlota Jin MD 1 [facility], [facility] 2 [place] [phone] 12/22/2024 6:45 EST Treatment [facility] Dialysi - [place] [address] [place], [place] [id number] Carlota Jin MD 1 [facility], [facility] 2 [place] [phone] 12/25/2024 6:45 EST Treatment [facility] Dialysi - [place] [address] [place], [place] [id number] Carlota Jin MD 1 [facility], [facility] 2 [place] [phone] 12/27/2024 6:45 EST Treatment [facility] Dialysi - [place] [address] [place], [place] [id number] Carlota Jin MD 1 [facility], [facility] 2 [place] [phone] 12/29/2024 6:45 EST Treatment [facility] Dialysi - [place] [address] [place], [place] [id number] Carlota Jin MD 1 [facility], [facility] 2 [place] [phone] 01/01/2025 6:45 EDT Treatment [facility] Dialysi - [place] [address] [place], [place] [id number] Carlota Jin MD 1 [facility], [facility] 2 [place] [phone] 01/03/2025 6:45 EDT Treatment [facility] Dialysi - [place] [address] [place], [place] [id number] Carlota Jin MD 1 [facility], Level [address] [place] [phone] 01/05/2025 6:45 EDT Treatment [facility] Dialysi - [place]ño [address] [place], [place] [address] Carlota Jin MD 1 [facility], [facility] 2 [place] [phone] 01/08/2025 6:45 EDT Treatment [facility] Dialysi - [place] [address] [place], [place] [id number] Carlota Jin MD 1 [facility], [facility] 2 [place] [phone] 01/10/2025 6:45 EDT Treatment [facility] Dialysi - [place] [address] [place] [address] Carl[address] MD 1 [facility], [facility] 2 [place] [phone] 01/12/2025 6:45 EDT Treatment [facility] [address] [place] [address] Carlota Jin MD 1 [facility], [facility] 2 [place] [phone] 01/15/2025 6:45 EDT Treatment [facility] [address] [place], [place] [id number] Carlota Jin MD 1 [facility], [facility] 2 [place] [phone] 01/17/2025 6:45 EDT Treatment [facility] Dialysi - [place]ño [address] [place], [place] [id number] Carlota Jin MD 1 [facility], [facility] 2 [place] [phone] 01/19/2025 6:45 EDT Treatment [facility] Dialysi - [place] [address] [place], [place] [id number] Carlota Jin MD 1 [facility], [facility] 2 [place] [phone] 01/22/2025 6:45 EDT Treatment [facility] Dialysi - [place] [address] [place], [place] [id number] Carlota Jin MD [address] [place] [address], [facility] 2 [place] [phone] 01/24/2025 6:45 EDT Treatment [facility] Dialysi - [place]ño [address] [place], [place] [id number] Carlota Jin MD 1 [facility], [facility] 2 [place] [phone] 01/26/2025 6:45 EDT Treatment [facility] Dialysi - [place] [address] [place], [place] [id number] Carlota Jin MD 1 [facility], [facility] 2 [place] [phone] 01/29/2025 6:45 EDT Treatment [facility] Dialysi - [place] [address] [place], [place] [id number] Carlota Jin MD 1 [facility], [facility] 2 [place] [phone] 01/31/2025 6:45 EDT Treatment [facility] Dialysi - [place] [address] [place], [place] [id number] Carlota Jin MD 1 [facility], [facility] 2 [place] [phone] 02/02/2025 6:45 EDT Treatment [facility] Dialysi - [place] [address] [place], [place] [id number] Carlota Jin MD 1 [facility], [address] [phone] 02/05/2025 6:45 EDT Treatment [facility] Dialysi - [place] [address] [place], [place] [id number] Carlota Jin MD 1 [facility], [address] [phone] 02/07/2025 6:45 EDT Treatment [facility] Dialysi - [place] [address] [place], [place] [id number] Carlota Jin MD 1 [facility], [facility] 2 [place] [phone] 02/09/2025 6:45 EDT Treatment [facility] Dialysi - [place] [address] [place], [place] [id number] Carlota Jin MD 1 [facility], [facility] 2 [place] [phone] 02/12/2025 6:45 EDT Treatment [facility] Dialysi - [place] [address] [place], [place] [id number] Carlota Jin MD [address] [phone] 02/14/2025 6:45 EDT Treatment [facility] Dialysi - [place] [address] [place], [place] [id number] Carlota Jin MD [address] [place] [phone] 02/16/2025 6:45 EDT Treatment [facility] Dialysi - [place] [address] [place], [place] [id number] Carlota Jin MD [address] [place] [phone] 02/19/2025 6:45 EDT Treatment [facility] Dialysi - [place]ño [address] [place], [place] [id number] Carlota Jin MD [address] [place] [phone] 02/21/2025 6:45 EDT Treatment [facility] Dialysi - [place] [address] [place], [place] [id number] Carlota Jin MD [address] [place] [phone] documented as of this encounter Visit Diagnoses Not on filedocumented in this encounter Care Teams Driver Trainee Relationship Specialty Start Date End Date Villegas, [place], ASSISTANT ADMINISTRATOR Moh[address] [place] [address] PCP - General 10/12/16 07/06/23 documented as of this encounter
--- OUTSIDE RECORDS SUMMARY | 2024-12-05 12:27 | XMS_ITS | Encounter Summary ---
Author Organization [facility] Address [address] [place] [address] Care Team Providers Care Dry Kiln Feeder Name Role Phone Adeola Villegas APRN Primary Care Provider [phone] Encounter Details Date Type Department Care Team (Late st Contact Info) Description 02/24/2023 Documentation [facility] [address] [place], [place] [phone] Melissa Crespo, RN Social History Tobacco Use [...] EST Treatment [facility] Dial[facility]i [facility] [address] [place] [id number] Carlota Jin MD 1 [facility] Level [address] [place] [address] 12/08/2024 6:45 EST Treatment [facility] Dial[facility]i [facility] [address] [place] [id number] Carlota Jin MD 1 [facility], [facility] 2 [place] [phone] 12/11/2024 6:45 EST Treatment [facility] Dialysi - [place] [address] [place], [place] [address] Carlota Jin MD 1 [facility], [facility] 2 [place] [phone] 12/13/2024 6:45 EST Treatment [facility] Dialysi - [place] [address] [place], [place] [phone] Carlota Jin MD 1 [facility], [facility] 2 [place] [phone] 12/15/2024 6:45 EST Treatment [facility] D[facility]ysi - [place] [address] [place], [place] [phone] Carlota Jin MD 1 [facility], [facility] 2 [place] [phone] 12/18/2024 6:45 EST Treatment [facility] Dialysi [facility] [address] [place] [address] Carlota Jin MD [facility], [facility] 2 [place] [phone] 12/20/2024 6:45 EST Treatment [facility] Dialysi [place] [address] [place], [place] [id number] Carlota Jin MD 1 [facility], [facility] 2 [place] [phone] 12/22/2024 6:45 EST Treatment [facility] Dialysi - [place] [address] [place], [place] [phone] Carlota Jin MD 1 [facility], [facility] 2 [place] [phone] 12/25/2024 6:45 EST Treatment [facility] Dialysi - [place] [address] [place], [place] [phone] Carlota Jin MD 1 [facility], [facility] 2 [place] [phone] 12/27/2024 6:45 EST Treatment [facility] Dialysi - [place] [address] [place], [place] [phone] Carlota Jin MD 1 [facility], [facility] 2 [place] [phone] 12/29/2024 6:45 EST Treatment [facility] Dialysi - [place] [address] [place], [place] [phone] Carlota Jin MD 1 [facility], [facility] 2 [place] [phone] 01/01/2025 6:45 EDT Treatment [facility] Dialysi - [place]ño [address] [place], [place] [id number] Carlota Jin MD 1 [facility], [facility] 2 [place] [phone] 01/03/2025 6:45 EDT Treatment [facility] Dial[facility]i - [place] [address] [place], [place] [id number] Carlota Jin MD [facility], Level [address] [place] [phone] 01/05/2025 6:45 EDT Treatment [facility] Dialysi - [place] [address] [place], [place] [address] Carlota Jin MD 1 [facility], [facility] 2 [place] [phone] 01/08/2025 6:45 EDT Treatment [facility] D[facility]i - [place] [address] [place], [place] [id number] Carlota Jin MD 1 [facility], [facility] 2 [place] [phone] 01/10/2025 6:45 EDT Treatment [facility] - [place] [address] [place] [address] Carlota Jin MD 1 [facility], [facility] 2 [place] [phone] 01/12/2025 6:45 EDT Treatment [facility] [address] [place] [address] Carl[address] MD [facility], [facility] 2 [place] [phone] 01/15/2025 6:45 EDT Treatment [facility] Dial[facility]i [facility] [address] [place], [place] [phone] Carlota Jin MD 1 [facility], [facility] 2 [place] [phone] 01/17/2025 6:45 EDT Treatment [facility] Dialysi - [place] [address] [place], [place] [id number] Carlota Jin MD 1 [facility], [facility] 2 [place] [phone] 01/19/2025 6:45 EDT Treatment [facility] Dialysi - [place] [address] [place], [place] [id number] Carlota Jin MD 1 [facility], [facility] 2 [place] [phone] 01/22/2025 6:45 EDT Treatment [facility] - [place] [address] [place], [place] [id number] Carlota Jin MD [address] [place] [address], [facility] 2 [place] [phone] 01/24/2025 6:45 EDT Treatment [facility] Dialysi - [place] [address] [place], [place] [id number] Carlota Jin MD 1 [facility], [facility] 2 [place] [phone] 01/26/2025 6:45 EDT Treatment [facility] - [place] [address] [place], [place] [id number] Carlota Jin MD 1 [facility], [facility] 2 [place] [phone] 01/29/2025 6:45 EDT Treatment [facility] Dialysi - [place] [address] [place], [place] [phone] Carlota Jin MD 1 [facility], [facility] 2 [place] [phone] 01/31/2025 6:45 EDT Treatment [facility] - [place] [address] [place], [place] [id number] Carlota Jin MD 1 [facility], [facility] 2 [place] [phone] 02/02/2025 6:45 EDT Treatment [facility] - [place] [address] [place], [place] [id number] Carlota Jin MD 1 [facility], [address] [phone] 02/05/2025 6:45 EDT Treatment [facility] - [place] [address] [place], [place] [id number] Carlota Jin MD 1 [facility], [address] [phone] 02/07/2025 6:45 EDT Treatment [facility] - [place] [address] [place], [place] [id number] Carlota Jin MD 1 [facility], [facility] 2 [place] [phone] 02/09/2025 6:45 EDT Treatment [facility] - [place] [address] [place], [place] [id number] Carlota Jin MD 1 [facility], [facility] 2 [place] [phone] 02/12/2025 6:45 EDT Treatment [facility] - [place] [address] [place], [place] [id number] Carlota Jin MD [address] [phone] 02/14/2025 6:45 EDT Treatment [facility] - [place] [address] [place], [place] [phone] Carlota Jin MD [address] [place] [phone] 02/16/2025 6:45 EDT Treatment [facility] - [place] [address] [place], [place] [id number] Carlota Jin MD [address] [place] [phone] 02/19/2025 6:45 EDT Treatment [facility] Dialysi - [place] [address] [place], [place] [id number] Carlota Jin MD [address] [place] [phone] 02/21/2025 6:45 EDT Treatment [facility] - [place] [address] [place], [place] [phone] Carlota Jin MD [address] [place] [phone] documented as of this encounter Visit Diagnoses Not on filedocumented in this encounter Care Teams Dry Kiln Feeder Relationship Specialty Start Date End Date Villegas, [place], BAKERY PRODUCTS CHECKER Moh[address] [place] [address] PCP - General 10/12/16 07/06/23 documented as of this encounter
--- OUTSIDE RECORDS SUMMARY | 2024-12-05 12:27 | XMS_ITS | Encounter Summary ---
Author Organization [facility] Address [address] [place] [address] Care Team Providers Care Custodial Manager Name Role Phone Adeola Villegas MONA Primary Care Provider [phone] Encounter Details Date Type Department Care Team (Late st Contact Info) Description 02/17/2023 7:15 EDT Treatment [facility] [address] [place] [id number] Carlota Jin MD 1 [facility], Level [address] [place] [address] ESRD (end stage renal disease) ([facility]) (Primary Dx); Abnormal albumin Social History [...] - Temperature - - Respiratory Rate 16 02/17/2023 0655 EDT Oxygen Saturation - - Inhaled Oxygen Concentration - - Weight 92.4 kg (203 lb 11.3 oz) 02/17/2023 0655 EDT Height - - Body Mass Index 29.65 01/25/2023 0751 EDT documented in this encounter Miscellaneous Notes * Flowsheet Note - Marcela Cox RN - 02/17/2023 1227 EDT 02/17/23 1109 Post-Hemodialysis Assessment Total Blood Processed (L) 87.01 Liters On Line Clearance: spKt/V 1.38 spKt/V Dialyzer Clearance Lightly streaked Treatment UFR (ml:kg:hr) 11.81 ml:kg:hr Critline refill Not done Fluid Removed (L) 4.2 L Post-Dialysis Scale Weight 88.2 kg (194 lb 7.1 oz) Wheelchair Weight 0 kg (0 lb) Prosthesis Weight 0 kg (0 lb) Post-Treatment Weight (kg) 88.2 Treatment Weight Change (kg) 4.2 kg Day Target Weight (kg) 88.4 Post Sitting/Lying BP 135/70 Post Sitting/Lying pulse 57 Post Standing BP 103/59 Post Standing Pulse 68 Temp 36.3 ??C (97.3 ??F) Temp src Temporal Post access assessment AVF/AFG Hemostasis achieved Yes Note 10 min hold Orientation Alert and Oriented x3 Yes Cooperative Yes Disoriented No Discharge Ambulation Methods Ambulatory without assistance Wrap up items Patient Response to Treatment Tolerated tx well. Removed 4.2L out of original 4.5L UF goal without difficulty. Goal cut back as pt reports cramping during last 1/2 hr of tx, this resolved with reduction in goal. Comments no concerns voiced post tx. d/c stable. documented in this encounter Plan of Treatment Upcoming Encounters Date Type Department Care Team (Late st Contact Info) Description 12/06/2024 6:45 EST Treatment [facility] [place] [address] [place], [place] [id number] Carlota Jin MD 1 [facility], Level [address] [place] [address] 12/08/2024 6:45 EST Treatment [facility] [address] [place], [place] [id number] Carlota Jin MD 1 [facility], Level [address] [place] [phone] 12/11/2024 6:45 EST Treatment [facility] [place] [address] [place], [place] [address] Carlota Jin MD 1 [facility] [place] [phone] 12/13/2024 6:45 EST Treatment [facility] [place] [address] [place], [place] [id number] Carlota Jin MD 1 [facility], [facility] [place] [phone] 12/15/2024 6:45 EST Treatment [facility] [place] [address] [place] [address] Carlota Jin MD 1 [facility] [place] [phone] 12/18/2024 6:45 EST Treatment [facility] [address] [place], [place] [id number] Carlota Jin MD 1 [facility] [place] [phone] 12/20/2024 6:45 EST Treatment [facility] [place] [address] [place], [place] [id number] Carlota Jin MD 1 [facility], [facility] [place] [phone] 12/22/2024 6:45 EST Treatment [facility] [place] [address] [place], [place] [id number] Carlota Jin MD 1 [facility], [facility] [place] [phone] 12/25/2024 6:45 EST Treatment [facility] [place] [address] [place], [place] [id number] Carlota Jin MD 1 [facility], [facility] [place] [phone] 12/27/2024 6:45 EST Treatment [facility] [place] [address] [place], [place] [id number] Carlota Jin MD 1 [facility], [facility] [place] [phone] 12/29/2024 6:45 EST Treatment [facility] [place] [address] [place], [place] [id number] Carlota Jin MD 1 [facility], [facility] [place] [phone] 01/01/2025 6:45 EDT Treatment [facility] [place] [address] [place], [place] [id number] Carlota Jin MD 1 [facility], [facility] [place] [phone] 01/03/2025 6:45 EDT Treatment [facility] [place] [address] [place], [place] [id number] Carlota Jin MD 1 [facility] [place] [phone] 01/05/2025 6:45 EDT Treatment [facility] [place] [address] [place], [place] [id number] Carlota Jin MD 1 [facility] [place] [phone] 01/08/2025 6:45 EDT Treatment [facility] [place] [address] [place], [place] [id number] Carlota Jin MD 1 [facility], [facility] [place] [phone] 01/10/2025 6:45 EDT Treatment [facility] [place] [address] [place], [place] [id number] Carlota Jin MD 1 [facility], [facility] [place] [phone] 01/12/2025 6:45 EDT [facility] [address] [place], [place] [id number] Carlota Jin MD 1 [facility], [facility] [place] [phone] 01/15/2025 6:45 EDT Treatment [facility] [place] [address] [place], [place] [id number] Carlota Jin MD 1 [facility] [place] [phone] 01/17/2025 6:45 EDT Treatment [facility] [place] [address] [place], [place] [id number] Carlota Jin MD 1 [facility], [facility] [place] [phone] 01/19/2025 6:45 EDT Treatment [facility] [place] [address] [place], [place] [id number] Carlota Jin MD 1 [facility], [facility] [place] [phone] 01/22/2025 6:45 EDT Treatment [facility] [place] [address] [place], [place] [id number] Carlota Jin MD 1 [facility], [facility] [place] [phone] 01/24/2025 6:45 EDT Treatment [facility] [place] [address] [place], [place] [id number] Carlota Jin MD 1 [facility], [facility] [place] [phone] 01/26/2025 6:45 EDT Treatment [facility] [place] [address] [place], [place] [id number] Carlota Jin MD 1 [facility], [facility] [place] [phone] 01/29/2025 6:45 EDT Treatment [facility] [place] [address] [place], [place] [id number] Carlota Jin MD 1 [facility], [facility] [place] [phone] 01/31/2025 6:45 EDT Treatment [facility] [place] [address] [place] [address] Carlota Jin MD 1 [facility], [address] [phone] 02/02/2025 6:45 EDT Treatment [facility] [place] [address] [place], [place] [id number] Carlota Jin MD 1 [facility], [address] [phone] 02/05/2025 6:45 EDT Treatment [facility] [place] [address] [place], [place] [id number] Carlota Jin MD 1 [facility], [address] [phone] 02/07/2025 6:45 EDT Treatment [facility] [place] [address] [place], [place] [id number] Carlota Jin MD 1 [facility], [facility] [place] [phone] 02/09/2025 6:45 EDT Treatment [facility] [place] [address] [place], [place] [id number] Carlota Jin MD 1 [facility], [facility] [place] [phone] 02/12/2025 6:45 EDT Treatment [facility] [place] [address] [place], [place] [id number] Carlota Jin MD [address] [phone] 02/14/2025 6:45 EDT Treatment [facility] [place] [address] [place], [place] [id number] Carlota Jin MD [address] [phone] 02/16/2025 6:45 EDT Treatment [facility] [place] [address] [place], [place] [id number] Carlota Jin MD [address] [phone] 02/19/2025 6:45 EDT Treatment [facility] [place] [address] [place], [place] [id number] Carlota Jin MD [address] [phone] 02/21/2025 6:45 EDT Treatment [facility] [place] [address] [place], [place] [id number] Carlota Jin MD [address] [phone] documented as of this encounter Procedures Procedure Name Priority Date/Time Associated Diagnosis Comments COMPLETE BLOOD COUNT Routine 02/17/2023 7:00 EDT ESRD (end stage renal disease) ([facility]) HEMODIALYSIS Routine 02/17/2023 6:55 EDT ESRD (end stage renal disease) ([facility]) documented in this encounter Results * (ABNORMAL) COMPLETE BLOOD COUNT (02/17/2023 7:00 EDT) WBC 6.35 4.00 - 10.40 K/cmm 02/17/2023 21:37 [facility] RBC 3.28(L) 4.36 - 5.78 M/cmm 02/17/2023 21:37 [facility] Hemoglobin 10.4(L) 13.8 - 17.3 gm/dL 02/17/2023 21:37 [facility] HCT 31.4(L) 39.5 - 50.2 % 02/17/2023 21:37 [facility] MCV 96(H) 81 - 95 fl 02/17/2023 21:37 [facility] MCH 31.7 27.6 - 33.0 pg 02/17/2023 21:37 [facility] MCHC 33.1 32.8 - 36.4 gm/dL 02/17/2023 21:37 [facility] RDW-CV 12.5 <14.2 % 02/17/2023 21:37 [facility] RDW-SD 43.6 <46.0 fl 02/17/2023 21:37 [facility] PLT 238 141 - 377 K/cmm 02/17/2023 21:37 [facility] MPV 12.2 9.5 - 12.7 fl 02/17/2023 21:37 [facility] Blood VENOUS BLOOD / Unknown Venipuncture / Unknown 02/17/2023 7:00 EDT 02/17/2023 7:00 EDT us Carlota Jin MD HEMATOLOGY & PF4 ORDERABL ES Final Result [facility] [address] [place] [address] documented in this encounter Visit Diagnoses Diagnosis ESRD (end stage renal disease) ([facility])- Primary End stage renal disease Abnormal albumin Other nonspecific findings on examination of blood documented in this encounter Administered Medications Inactive Administered Medications - up to 3 most recent administrations Medication Order MAR Action Action Date Dose Rate Site heparin injection 9,000 Units 9,000 Units, intravenous, ONCE IN DIALYSIS, 1 dose, On Wed02/17/23 at 0715, Routine, Dialysis, Now x1 bolus 4500 units to be given at the beginning of dialysis 1500 units/hour to be given over the course of dialysis (9000 units total). Stop 1 hour prior to end of treatment. To be administered per Policy [id number].Indications:ESRD (end stage renal disease) ([facility]) Given 02/17/2023 7:10 EDT 9,000 Units nepro w/ carb steady bolus 237 mL 237 mL (1 Package), oral, ONCE IN DIALYSIS, 1 dose, On Wed02/17/23 at 0715, RoutineIndications:ESRD (end stage renal disease) ([facility]),Abnormal albumin Given 02/17/2023 7:19 EDT 237 mL documented in this encounter Orders Dialysis Count Last Ordered Date First Orde red Date HEMODIALYSIS 1 02/17/2023 documented in this encounter Care Teams Custodial Manager Relationship Specialty Start Date End Date Adeola Villegas APRN [address] [place] [address] PCP - General 10/12/16 07/06/23 documented as of this encounter
--- OUTSIDE RECORDS SUMMARY | 2024-12-05 12:27 | XMS_ITS | Encounter Summary ---
Author Organization [facility] Address [address] [place] [address] Care Team Providers Care Director It Name Role Phone Adeola Villegas MONA Primary Care Provider [phone] Encounter Details Date Type Department Care Team (Late st Contact Info) Description 02/08/2023 7:15 EDT Treatment [facility] [address] [place], [place] [phone] Carlota Jin MD 1 [facility], Level [address] [place] [address] ESRD (end stage renal disease) ([facility]) (Primary Dx); Anemia [...] - Temperature - - Respiratory Rate 17 02/08/2023 1123 EDT Oxygen Saturation - - Inhaled Oxygen Concentration - - Weight 92.6 kg (204 lb 2.3 oz) 02/08/2023 0704 E DT Height - - Body Mass Index 29.71 01/25/2023 0751 EDT documented in this encounter Miscellaneous Notes * Flowsheet Note - Melissa Crespo RN - 02/08/2023 1868 EDT 02/08/23 1123 Post-Hemodialysis Assessment Total Blood Processed (L) 87.99 Liters Dialyzer Clearance Lightly streaked Treatment UFR (ml:kg:hr) 10.72 ml:kg:hr Final Critline Profile (%/hr) -3.54 Final Profile Profile B Critline refill Negative (H1: 32.5 H2: 32.2) Fluid Removed (L) 4.01 L Post-Dialysis Scale Weight 88.7 kg (195 lb 8.8 oz) Post Weight Estimated? Estimated Wheelchair Weight 0 kg (0 lb) Prosthesis Weight 0 kg (0 lb) Post-Treatment Weight (kg) 88.7 Treatment Weight Change (kg) 3.9 kg Day Target Weight (kg) 89.1 Post Sitting/Lying BP 136/64 Post Sitting/Lying pulse 61 Post Standing BP 137/73 Post Standing Pulse 66 Temp 36.4 ??C [...] Dialysis Comprehensive - Carlota Jin MD - 02/08/2023 0715 EDT Images from the original note were not included. Dialysis Provider's Monthly Comprehensive Assessment Dialysis Unit: [facility] ESRD Etiology: Type 2 diabetes mellitus with diabetic chronic kidney disease Patient Active Problem List Diagnosis ??? 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 ESRD (end stage renal disease) (HCC-CMS) ([facility]) ??? Essential (primary) hypertension ??? [...] Choice: Hemodialysis, Incenter Plan: Continue current modality. Pending smoking cessation required for transplant referral Transplantation: Patient Had Prior Transplant: No Transplant [...] Yes Average Interdialytic Fluid Gains: InterDialytic +/- 02/03/2023 02/03/2023 02/05/2023 02/05/2023 02/05/2023 02/08/2023 02/08/2023 Gain/Loss 4.1 - 2.4 2.4 - 5.3 5.3 Wt (pre) 92.3 - 90.6 90.6 - 92.6 92.6 Wt (post) - 88.2 - - 87.3 - - Treatment UFR (ml:kg:hr) - 11.57 - - 9.53 - - BP (pre) 141/71 - 154/72 154/72 - 155/81 155/81 BP (post) 148/90 - 165/90 165/90 - 156/72 156/72 Pulse (pre) 74 - 68 68 - 65 65 Pulse(post) 70 - 67 67 - 71 71 Resp (/min) 16 - 12 - - 18 - Volume and blood pressure have been addressed with the following changes: None Consistently able to achieve estimated dry weight? Yes Blood pressure is in range for patient? Yes Any adverse intradialytic symptoms? No Plan: Managed per protocol Physical Exam See Note from 01/25/23 Hospitalization Hospitalization in Previous 3 Months: No Emergency Room Visit in Previous 3 Months: No Access Management Current LDAs: Hemodialysis Arteriovenous Access 02/13/19 (Active) AV Fistula Present 02/08/23 075 Site Assessment Clean;Dry;Intact;Bruit heard;Thrill felt 02/08/23 0753 Current State Active 02/08/23 0753 Status Accessed 02/08/23 0753 Is Maturing N 02/08/23 075 Local Anesthetic Topical 02/08/23 075 Site Prep Chlorhexidine 02/08/23 075 Venous Needle Size 15 G 02/08/23 0753 Arterial/Generic Needle Size 15 G 02/08/23 0753 Accessed by: Sandra 02/08/23 0753 Access Attempts 1 02/08/23 0753 Dressing Status/Care Clean/Dry/Intact 01/15/23 0715 Patient has [...] Tablet, Rfl: 3 Current Facility-Administered Medications: ??? acetaminophen (TYLENOL) tablet 650 mg, 650 mg, oral, Q4H PRN, Carlota Jin MD, 650 mg at 02/08/23 7207 Adjustment made to home medication: No Dialysis Medication Review Dialysis Plan Order Summary All Current Orders Interval Duration Due Hemodialysis Therapy Plan Dialysis Treatment In-Center Hemodialysis 3 times a week Week of 02/07/2023 Routine, ONE TIME Starting when released Prescribed [...] - UF Profile: None Dialysis Last released: Wed02/08/2023 Oxygen Therapy (Age 3 yrs. to Adult) [...] of treatment. To be administered per Policy [id number]. Last released: Wed02/08/2023 sodium chloride 0.9 % BOLUS 100 mL PRN PRN 100 mL, intravenous, PRN Starting when released Until Discontinued, Other, hypotension or cramping,Dialysis Last released: Never Dialysis Weekly Labs Complete Blood Count Weekly: Wed02/10/2023 Routine, ONE TIME Starting when released, Blood, Venous, Blood Results Release to Patient (Note: Choosing Manual Release will only block results from tests performed at [facility] and does not apply for Miscellaneous Test Order): Immediate via MyChart Portal Dialysis Last released: Wed02/03/2023 Dialysis Monthly Labs Dialysis Iron (Includes Iron, IBC, and Ferritin) - Nephrology Use Only On the 1st Wed of every 1 month Wed02/22/2023 Routine, ONE TIME Starting when released, Blood, Venous, Blood Results Release to Patient (Note: Choosing Manual Release will only block results from tests performed at [facility] and does not apply for Miscellaneous Test Order): Immediate via [employer] Portal Dialysis Last released: Wed01/25/2023 Dialysis Routine- Dialysis Use Only On the Wed of every 1 month [facility] 02/22/2023 Routine, ONE TIME Starting when released, Blood, Blood, Venous Results Release to Patient (Note: Choosing Manual Release will only block results from tests performed at [facility] and does not apply for Miscellaneous Test Order): Immediate via MyChart Portal Dialysis Last released: Wed01/25/2023 Postdialysis BUN with URR Calculation On the Wed of every 1 month [facility] 02/22/2023 Routine, ONE TIME Starting when released, Blood, Blood, Venous Results Release to Patient (Note: Choosing Manual Release will only block results from tests performed at [facility] and does not apply for Miscellaneous Test Order): Immediate via [employer] Portal Dialysis Last released: Wed01/25/2023 Dialysis Quarterly Labs PTH Intact On the Wed of every 3 months Wed04/26/2023 Routine, ONE TIME Starting when released, Blood, Venous, Blood Results Release to Patient (Note: Choosing Manual Release will only block results from tests performed at [facility] and does not apply for Miscellaneous Test Order): Immediate via [employer] Portal Dialysis Last released: Wed01/25/2023 Dialysis Annual Labs - [place] [facility] Hepatitis- Dialysis Use Only On the Mon of every 12 months [facility] 10/25/2023 Routine, ONE TIME Starting when released, [...] the 1st Mon of every 12 months [facility] 10/25/2023 Routine, ONE TIME Starting when released, [...] only block results from tests performed at [facility] and does not apply for Miscellaneous Test Order): Immediate via MyChart Portal Dialysis Last released: Never Dialysis Annual Labs - April Hepatitis C Ab w Reflex to HCV RNA by PCR On the Wed of every 12 months [facility] 04/26/2023 Routine, ONE TIME Starting when released, Blood, Venous, Blood Results Release to Patient (Note: Choosing Manual Release will only block results from tests performed at [facility] and does not apply for Miscellaneous Test Order): Immediate via MyChart Portal Dialysis Last released: Never HEMODIALYSIS [facility] Medications epoetin ken (EPOGEN) 20,000 unit/2 mL injection 500 Units Weekly: Wed, Wed02/12/2023 500 Units, intravenous, ONCE IN DIALYSIS Starting when released, Dialysis Last released: Wed02/08/2023 HEMODIALYSIS NUTRITIONAL SUPPLEMENTS Nutritional Supplements nepro w/ carb steady bolus 237 mL Every visit Every visit 237 mL (1 Package), oral, ONCE IN DIALYSIS Starting when released Last released: Wed02/08/2023 Adjustment made to dialysis medication: No Laboratory Results Dialysis Adequacy: spKt/V: 1.53 (Calculated from:; BUN Pre-Dialysis: 65 mg/dL at 01/25/2023 11:31; BUN Post-Dialysis: 18mg/dL at 01/25/2023 11:31; Pre-Treatment Weight (kg): 92 at 01/25/2023 7:07; Post-Treatment Weight (kg): 88.6 at 01/25/2023 11:23; Duration of Treatment (minutes): 244 minutes at 01/25/2023 11:23) Plan: Continue current dialysis prescription Anemia Management: Lab Results Component Value Date WBC 9.42 02/03/2023 HGB 10.7 (L) 02/03/2023 HGB 10.2 (L) 01/27/2023 HGB 11.0 (L) 01/20/2023 PLT 267 02/03/2023 FOLATE 17.3 11/16/2022 [id number] 11/16/2022 FERRITIN 691 (H) 01/25/2023 Current GEORGE/Dose: HEMODIALYSIS [facility] epoetin ken [...] Results Component Value Date LABALBU 3.5 01/25/2023 ALKPHOS 85 01/25/2023 PHOS 7.1 (H) 01/25/2023 CALCIUM 9.0 01/25/2023 CALCCA 9.4 01/25/2023 PTH 239 (H) 01/25/2023 Vitamin D: cholecalciferol (Vitamin D3) - 25 mcg (1,000 unit) sevelamer hydrochloride - 800 mg This patient does not have an active medication from one of the medication groupers. Plan: Managed per protocol Potassium Management: Lab Results Component Value Date K 5.2 (H) 01/25/2023 Prescribed Potassium Concentrate: HEMODIALYSIS Ordered at: 02/08/23 0706 Dialysate concentrate: Potassium 2 mEq/L Calcium 2.5 mEq/L Last Dialysis Prescription released on: 02/08/2023 Selected bath: Potassium 2 mEq/L Calcium 2.5 mEq/L Some recent data might be hidden sevelamer hydrochloride - 800 mg Plan: Managed per protocol Nutrition: Lab Results Component Value Date LABALBU 3.5 01/25/2023 NA 134 (L) 01/25/2023 Protein Supplements: This patient does not have an active medication from one of the medication groupers. Plan: Managed per protocol Comments: No acute issues. He is unable to tell me how much he urinates or if he has any response to Lasix. He does want to come off some of his medications but cannot tell me what he takes but rather says that he takes whatever is in the computer. I have encouraged him to pay attention to the lasix and if he thinks it makes a difference with regard to how much he urinates. He does say that he urinates as much as he always has. I pointed out that that is unlikely to be true since he has weight gain between sessions. Will continue to discuss. Carlota Jin MD documented in this encounter Plan of Treatment Upcoming Encounters Date Type Department Care Team (Late st Contact Info) Description 12/06/2024 6:45 EST Treatment [facility] [place] [address] [place], [place] [phone] Carlota Jin MD 1 [facility], [facility] [address] [place] [phone] 12/08/2024 6:45 EST Treatment [facility] [address] [place], [place] [phone] Carlota Jin MD 1 [facility], [address] [phone] 12/11/2024 6:45 EST Treatment [facility] [address] [place], [place] [phone] Carlota Jin MD [address] [place] [phone] 12/13/2024 6:45 EST Treatment [facility] [address] [place], [place] [phone] Carlota Jin MD [address] [phone] 12/15/2024 6:45 EST Treatment [facility] [address] [place], [place] [phone] Carlota Jin MD 1 [facility], [address] [phone] 12/18/2024 6:45 EST Treatment [facility] - [place] [address] [place], [place] [phone] Carlota Jin MD 1 [facility], [facility] 2 [place] [phone] 12/20/2024 6:45 EST Treatment [facility] - [place] [address] [place], [place] [phone] Carlota Jin MD 1 [facility], [facility] [address] [place] [phone] 12/22/2024 6:45 EST Treatment [facility] [place] [address] [place] [address] Carlota Jin MD 1 [facility], [facility] [address] [place] [phone] 12/25/2024 6:45 EST Treatment [facility] - [place] [address] [place], [place] [phone] Carlota Jin MD 1 [facility], [facility] [address] [place] [phone] 12/27/2024 6:45 EST Treatment [facility] [place] [address] [place], [place] [phone] Carlota Jin MD 1 [facility], [facility] 2 [place] [phone] 12/29/2024 6:45 EST Treatment [facility] - [place] [address] [place], [place] [phone] Carlota Jin MD 1 [facility], [facility] 2 [place] [phone] 01/01/2025 6:45 EDT Treatment [facility] [place] [address] [place], [place] [phone] Carlota Jin MD 1 [facility], [facility] [address] [place] [phone] 01/03/2025 6:45 EDT Treatment [facility] [place] [address] [place], [place] [phone] Carlota Jin MD 1 [facility], [address] [phone] 01/05/2025 6:45 EDT Treatment [facility] - [place] [address] [place], [place] [phone] Carlota Jin MD [address] [phone] 01/08/2025 6:45 EDT Treatment [facility] [place] [address] [place], [place] [phone] Carlota Jin MD [address] [phone] 01/10/2025 6:45 EDT Treatment [facility] [place] [address] [place], [place] [phone] Carlota Jin MD 1 [facility] 2 [place] [phone] 01/12/2025 6:45 EDT Treatment [facility] - [place] [address] [place], [place] [phone] Carlota Jin MD 1 [facility], [facility] 2 [place] [phone] 01/15/2025 6:45 EDT Treatment [facility] - [place] [address] [place], [place] [phone] Carlota Jin MD 1 [facility], [facility] [address] [place] [phone] 01/17/2025 6:45 EDT Treatment [facility] - [place] [address] [place], [place] [phone] Carlota Jin MD 1 [facility], [facility] [place] [phone] 01/19/2025 6:45 EDT Treatment [facility] [place] [address] [place], [place] [phone] Carlota Jin MD 1 [facility], [facility] 2 [place] [phone] 01/22/2025 6:45 EDT Treatment [facility] [place] [address] [place], [place] [phone] Carlota Jin MD 1 [facility], [facility] 2 [place] [phone] 01/24/2025 6:45 EDT Treatment [facility] - [place] [address] [place], [place] [phone] Carlota Jin MD 1 [facility], [facility] 2 [place] [phone] 01/26/2025 6:45 EDT Treatment [facility] [place] [address] [place], [place] [phone] Carlota Jin MD [address] [place] [address], [address] [phone] 01/29/2025 6:45 EDT Treatment [facility] [place] [address] [place], [place] [phone] Carlota Jin MD [address] [place] [address], [address] [phone] 01/31/2025 6:45 EDT Treatment [facility] [place] [address] [place], [place] [phone] Carlota Jin MD [address] [place] [address], [facility] 2 [place] [phone] 02/02/2025 6:45 EDT Treatment [facility] [place] [address] [place], [place] [phone] Carlota Jin MD 1 [facility], [facility] 2 [place] [phone] 02/05/2025 6:45 EDT Treatment [facility] [place] [address] [place], [place] [phone] Carlota Jin MD 1 [facility], [facility] 2 [place] [phone] 02/07/2025 6:45 EDT Treatment [facility] [place] [address] [place], [place] [id number] Carlota Jin MD 1 [facility], [facility] 2 [place] [phone] 02/09/2025 6:45 EDT Treatment [facility] [place] [address] [place] [address] Carlota Jin MD 1 [facility], [facility] [address] [place] [phone] 02/12/2025 6:45 EDT Treatment [facility] - [place] [address] [place], [place] [address] [phone] Carlota Jin MD 1 [facility], [facility] [address] [place] [phone] 02/14/2025 6:45 EDT Treatment [facility] [place] [address] [place] [address] Carlota Jin MD 1 [facility], [facility] [address] [place] [phone] 02/16/2025 6:45 EDT Treatment [facility] - [place] [address] [place], [place] [phone] Carlota Jin MD 1 [facility], [facility] [address] [place] [phone] 02/19/2025 6:45 EDT Treatment [facility] [address] [place], [place] [phone] Carlota Jin MD 1 [facility], [facility] [address] [place] [phone] 02/21/2025 6:45 EDT Treatment [facility] - [place] [address] [place], [place] [phone] Carlota Jin MD 1 [facility], [facility] [address] [place] [phone] documented as of this encounter Procedures Procedure Name Priority Date/Time Associated Diagnosis Comments HEMODIALYSIS Routine 02/08/2023 7:06 EDT ESRD (end stage renal disease) ([facility]) documented in this encounter Visit Diagnoses Diagnosis ESRD (end stage renal disease) ([facility])- Primary End stage renal disease Anemia of chronic renal failure, unspecified CKD stage Abnormal albumin Other nonspecific findings on examination of blood documented in this encounter Administered Medications Inactive Administered Medications - up to 3 most recent administrations Medication Order MAR Action Action Date Dose Rate Site acetaminophen (TYLENOL) tablet 650 mg 650 mg, oral, EVERY 4 HOURS PRN, Starting on Wed02/08/23 at 0729, Until Wed02/08/23 at 1759, Pain, Routine, DialysisIndications:ESRD (end stage renal disease) ([facility]) Given 02/08/2023 7:58 EDT 650 mg epoetin ken (EPOGEN) 20,000 unit/2 mL injection 500 Units 500 Units, intravenous, ONCE IN DIALYSIS, 1 dose, On Wed02/08/23 at 0730, Routine, DialysisIndications:ESRD (end stage renal disease) ([facility]),Anemia of chronic renal failure, unspecified CKD stage Given 02/08/2023 7:59 EDT 500 Units heparin injection 9,000 Units 9,000 Units, intravenous, ONCE IN DIALYSIS, 1 dose, On Wed02/08/23 at 0730, Routine, Dialysis, Now x1 bolus 4500 units to be given at the beginning of dialysis 1500 units/hour to be given over the course of dialysis (9000 units total). Stop 1 hour prior to end of treatment. To be administered per Policy [id number].Indications:ESRD (end stage renal disease) ([facility]) Given 02/08/2023 7:17 EDT 9,000 Units nepro w/ carb steady bolus 237 mL 237 mL (1 Package), oral, ONCE IN DIALYSIS, 1 dose, On Wed02/08/23 at 0730, RoutineIndications:ESRD (end stage renal disease) ([facility]),Abnormal albumin Given 02/08/2023 7:59 EDT 237 mL documented in this encounter Orders Dialysis Count Last Ordered Date First Orde red Date HEMODIALYSIS 1 02/08/2023 documented in this encounter Care Teams Director It Relationship Specialty Start Date End Date Adeola Villegas APRN [address] [place] [address] PCP - General 10/12/16 07/06/23 documented as of this encounter
--- OUTSIDE RECORDS SUMMARY | 2024-12-05 12:28 | XMS_ITS | Encounter Summary ---
Author Organization [facility] Address [address] [place] [address] Care Team Providers Care [employer] Sales Consultant Name Role Phone Adeola Villegas APRN Primary Care Provider [phone] Encounter Details Date Type Department Care Team (Late st Contact Info) Description 01/22/2023 Documentation Visit [facility] [address] [place], [place] [id number] Yoanna Degroot, VIDYA Social History Tobacco Use Types Packs/Day Years Used Date Smoking Tobacco: Every Day Cigarettes Smokeless Tobacco: Never Sex and Gender Information Value Date Recorded Sex Assigned at Not on file Legal Sex Male 18:49 EST Gender Identity Male 07/07/2023 14:11 EDT Sexual Orientation Not on file documented as of this encounter Plan of Treatment Upcoming Encounters Date Type Department Care Team (Late st Contact Info) Description 12/06/2024 6:45 EST Treatment [facility] [address] [place] [address] Carlota Jin MD 1 [facility], [facility] [address] [place] [address] 12/08/2024 6:45 EST Treatment [facility] [address] [place] [id number] Carlota Jin MD [address] [place] [address], [facility] [address] [place] [phone] 12/11/2024 6:45 EST Treatment [facility] [place] [address] [place], [place] [id number] Carlota Jin MD 1 [facility], Level [address] [place] [phone] 12/13/2024 6:45 EST Treatment [facility] [address] [place] [address] Carlota Jin MD 1 [facility], [facility] [address] [place] [phone] 12/15/2024 6:45 EST Treatment [facility] [place] [address] [place], [place] [address] [phone] Carlota Jin MD 1 [facility], [facility] [address] [place] [phone] 12/18/2024 6:45 EST Treatment [facility] [place] [address] [place] [address] Carlota Jin MD 1 [facility], [facility] [address] [place] [phone] 12/20/2024 6:45 EST Treatment [facility] [place] [address] [place], [place] [id number] Carlota Jin MD 1 [facility], Level [address] [place] [phone] 12/22/2024 6:45 EST Treatment [facility] [place] [address] [place], [place] [address] Carlota Jin MD 1 [facility], [facility] [address] [place] [phone] 12/25/2024 6:45 EST Treatment [facility] [place] [address] [place], [place] [address] [phone] Carlota Jin MD 1 [facility], [address] [phone] 12/27/2024 6:45 EST Treatment [facility] [place] [address] [place], [place] [id number] Carlota Jni MD 1 [facility], [address] [phone] 12/29/2024 6:45 EST Treatment [facility] [place] [address] [place], [place] [id number] Carlota Jni MD 1 [facility], [address] [phone] 01/01/2025 6:45 EDT Treatment [facility] [place] [address] [place], [place] [id number] Carlota Jin MD 1 [facility], [address] [phone] 01/03/2025 6:45 EDT Treatment [facility] [place] [address] [place], [place] [id number] Carlota Jin MD 1 [facility], [facility] [address] [place] [phone] 01/05/2025 6:45 EDT Treatment [facility] [place] [address] [place], [place] [id number] Carlota Jin MD 1 [facility], [facility] [address] [place] [phone] 01/08/2025 6:45 EDT Treatment [facility] [place] [address] [place], [place] [id number] Carlota Jin MD 1 [facility], [facility] [address] [place] [phone] 01/10/2025 6:45 EDT Treatment [facility] [place] [address] [place] [address] Carlota Jin MD [address] [place] [address], [facility] [address] [place] [phone] 01/12/2025 6:45 EDT Treatment [facility] [place] [address] [place], [place] [id number] Carlota Jin MD 1 [facility], [facility] [address] [place] [phone] 01/15/2025 6:45 EDT Treatment [facility] [place] [address] [place], [place] [id number] Carlota Jin MD [address] [place] [address], [facility] [address] [place] [phone] 01/17/2025 6:45 EDT Treatment [facility] [place] [address] [place], [place] [address] Carlota Jin MD 1 [facility], [facility] 2 [place] [phone] 01/19/2025 6:45 EDT Treatment [facility] [place] [address] [place], [place] [address] Carlota Jin MD 1 [facility], [facility] 2 [place] [phone] 01/22/2025 6:45 EDT Treatment [facility] [place] [address] [place], [place] [id number] Carlota Jin MD 1 [facility], [facility] [address] [place] [phone] 01/24/2025 6:45 EDT Treatment [facility] [place] [address] [place], [place] [address] Carlota Jin MD 1 [facility], [address] [phone] 01/26/2025 6:45 EDT Treatment [facility] [place] [address] [place], [place] [id number] Carlota Jin MD 1 [facility], [facility] 2 [place] [phone] 01/29/2025 6:45 EDT Treatment [facility] [place] [address] [place], [place] [id number] Carlota Jin MD 1 [facility] [address] [place] [phone] 01/31/2025 6:45 EDT Treatment [facility] [place] [address] [place], [place] [address] Carlota Jin MD 1 [facility], [facility] 2 [place] [phone] 02/02/2025 6:45 EDT Treatment [facility] [place] [address] [place], [place] [address] Carlota Jin MD 1 [facility], [facility] 2 [place] [phone] 02/05/2025 6:45 EDT Treatment [facility] [place] [address] [place], [place] [address] Carlota Jin MD 1 [facility], [facility] 2 [place] [phone] 02/07/2025 6:45 EDT Treatment [facility] [place] [address] [place] [address] Carlota Jin MD 1 [facility], [facility] 2 [place] [phone] 02/09/2025 6:45 EDT Treatment [facility] [address] [place], [place] [id number] Carlota Jin MD 1 [facility], [facility] 2 [place] [phone] 02/12/2025 6:45 EDT Treatment [facility] [place] [address] [place], [place] [address] Carlota Jin MD [address] [phone] 02/14/2025 6:45 EDT Treatment [facility] [place] [address] [place], [place] [address] Carlota Jin MD [address] [place] [phone] 02/16/2025 6:45 EDT Treatment [facility] [place] [address] [place], [place] [id number] Carlota Jin MD [address] [place] [phone] 02/19/2025 6:45 EDT Treatment [facility] [place] [address] [place], [place] [id number] Carlota Jin MD [address] [place] [phone] 02/21/2025 6:45 EDT Treatment [facility] [place] [address] [place], [place] [id number] Carlota Jin MD [address] [place] [phone] documented as of this encounter Visit Diagnoses Not on filedocumented in this encounter Care Teams [employer] Sales Consultant Relationship Specialty Start Date End Date Adeola Villegas APRN [address] [place] [address] PCP - General 10/12/16 07/06/23 documented as of this encounter
--- OUTSIDE RECORDS SUMMARY | 2024-12-05 12:28 | XMS_ITS | Encounter Summary ---
Author Organization [facility] Address [address] [place] [address] Care Team Providers Care Engineer/Conductor Name Role Phone Adeola Villegas APRN Primary Care Provider [phone] Encounter Details Date Type Department Care Team (Late st Contact Info) Description 01/29/2023 Orders Only [facility] [address] [place], [place] [id number] Yoanna Degroot, RN Social History Tobacco Use [...] 6:45 EST Treatment [facility] [address] [place] [id number] Carlota Jin MD 1 [facility] Level [address] [place] [address] 12/08/2024 6:45 EST [facility] [address] [place] [address] Carlota iJn MD 1 [facility], [facility] [address] [place] [phone] 12/11/2024 6:45 EST Treatment [facility] [address] [place], [place] [address] Carlota Jin MD 1 [facility], [facility] [address] [place] [phone] 12/13/2024 6:45 EST Treatment [facility] [place] [address] [place], [place] [address] Carlota Jin MD 1 [facility], [facility] [address] [place] [phone] 12/15/2024 6:45 EST Treatment [facility] [place] [address] [place], [place] [id number] Carlota Jin MD 1 [facility], [facility] [address] [place] [phone] 12/18/2024 6:45 EST Treatment [facility] [address] [place] [address] Carlota Jin MD 1 [facility], [facility] [address] [place] [phone] 12/20/2024 6:45 EST Treatment [facility] [place] [address] [place], [place] [address] Carlota Jin MD 1 [facility], [facility] [address] [place] [phone] 12/22/2024 6:45 EST Treatment [facility] [place] [address] [place], [place] [id number] Carlota Jin MD 1 [facility], [facility] [address] [place] [phone] 12/25/2024 6:45 EST Treatment [facility] [place] [address] [place], [place] [id number] Carlota Jin MD 1 [facility], [facility] [address] [place] [phone] 12/27/2024 6:45 EST Treatment [facility] [place] [address] [place], [place] [id number] Carlota Jin MD 1 [facility], [facility] [address] [place] [phone] 12/29/2024 6:45 EST Treatment [facility] [place] [address] [place], [place] [id number] Carlota Jin MD 1 [facility], [facility] [address] [place] [phone] 01/01/2025 6:45 EDT Treatment [facility] [place] [address] [place], [place] [id number] Carlota Jin MD 1 [facility], [facility] [address] [place] [phone] 01/03/2025 6:45 EDT Treatment [facility] [place] [address] [place], [place] [id number] Carlota Jin MD 1 [facility], Level [address] [place] [phone] 01/05/2025 6:45 EDT Treatment [facility] [place] [address] [place], [place] [address] Carlota Jin MD 1 [facility], [facility] [address] [place] [phone] 01/08/2025 6:45 EDT Treatment [facility] [place] [address] [place], [place] [id number] Carlota Jin MD 1 [facility], [facility] [address] [place] [phone] 01/10/2025 6:45 EDT Treatment [facility] [place] [address] [place] [address] Carlota Jin MD 1 [facility], [facility] [address] [place] [phone] 01/12/2025 6:45 EDT Treatment [facility] [address] [place] [address] Carlota Jin MD 1 [facility], [facility] [address] [place] [phone] 01/15/2025 6:45 EDT Treatment [facility] [address] [place], [place] [id number] Carlota Jin MD 1 [facility], [facility] [address] [place] [phone] 01/17/2025 6:45 EDT Treatment [facility] [place] [address] [place], [place] [id number] Carlota Jin MD 1 [facility], [facility] [address] [place] [phone] 01/19/2025 6:45 EDT Treatment [facility] [place] [address] [place], [place] [id number] Carlota Jin MD 1 [facility], [facility] [address] [place] [phone] 01/22/2025 6:45 EDT Treatment [facility] [place] [address] [place], [place] [id number] Carlota Jin MD [address] [place] [address], [facility] [address] [place] [phone] 01/24/2025 6:45 EDT Treatment [facility] [place] [address] [place], [place] [id number] Carlota Jin MD 1 [facility], [facility] [address] [place] [phone] 01/26/2025 6:45 EDT Treatment [facility] [place] [address] [place], [place] [id number] Carlota Jin MD 1 [facility], [facility] [address] [place] [phone] 01/29/2025 6:45 EDT Treatment [facility] [place] [address] [place], [place] [id number] Carlota Jin MD 1 [facility], [facility] [address] [place] [phone] 01/31/2025 6:45 EDT Treatment [facility] [place] [address] [place], [place] [id number] Carlota Jin MD 1 [facility], [facility] [address] [place] [phone] 02/02/2025 6:45 EDT Treatment [facility] [place] [address] [place], [place] [id number] Carlota Jin MD 1 [facility], [address] [phone] 02/05/2025 6:45 EDT Treatment [facility] [place] [address] [place], [place] [address] Carlota Jin MD 1 [facility], [address] [phone] 02/07/2025 6:45 EDT Treatment [facility] [place] [address] [place], [place] [id number] Carlota Jin MD 1 [facility], [facility] [address] [place] [phone] 02/09/2025 6:45 EDT Treatment [facility] [place] [address] [place], [place] [id number] Carlota Jin MD 1 [facility], [facility] [address] [place] [phone] 02/12/2025 6:45 EDT Treatment [facility] [place] [address] [place], [place] [id number] Carlota Jin MD [address] [phone] 02/14/2025 6:45 EDT Treatment [facility] [place] [address] [place], [place] [id number] Carlota Jin MD [address] [place] [phone] 02/16/2025 6:45 EDT Treatment [facility] [place] [address] [place], [place] [id number] Carlota Jin MD [address] [place] [phone] 02/19/2025 6:45 EDT Treatment [facility] [place] [address] [place], [place] [id number] Carlota Jin MD [address] [place] [phone] 02/21/2025 6:45 EDT Treatment [facility] [place] [address] [place], [place] [id number] Carlota Jin MD [address] [place] [phone] documented as of this encounter Visit Diagnoses Not on filedocumented in this encounter Care Teams Engineer/Conductor Relationship Specialty Start Date End Date Villegas, Adeola, CLINICAL TRIAL EDUCATOR [address] [place] [address] PCP - General 10/12/16 07/06/23 documented as of this encounter
--- OUTSIDE RECORDS SUMMARY | 2024-12-05 12:28 | XMS_ITS | Encounter Summary ---
Author Organization [facility] Address [address] [place] [address] Care Team Providers Care Inspector Hairspring Name Role Phone Adeola Villegas APRN Primary Care Provider [phone] Encounter Details Date Type Department Care Team (Late st Contact Info) Description 01/26/2023 Orders Only [facility] [address] [place], [place] [id number] Yoanna Degroot, RN Social History Tobacco Use [...] [facility] [address] [place] [id number] Carlota Jin MD 1 [facility], Level 2 [place] [address] 12/08/2024 6:45 EST [facility] [address] [place] [id number] Carlota Jin MD 1 [facility], [facility] 2 [place] [phone] 12/11/2024 6:45 EST Treatment [facility] - [place] [address] [place], [place] [address] Carlota Jin MD 1 [facility], [facility] 2 [place] [phone] 12/13/2024 6:45 EST Treatment [facility] - [place] [address] [place], [place] [id number] Carlota Jin MD 1 [facility], [facility] 2 [place] [phone] 12/15/2024 6:45 EST Treatment [facility] - [place] [address] [place], [place] [id number] Carlota Jin MD 1 [facility], [facility] 2 [place] [phone] 12/18/2024 6:45 EST Treatment [facility] [address] [place] [address] Carlota Jin MD 1 [facility], [facility] 2 [place] [phone] 12/20/2024 6:45 EST Treatment [facility] Dialysi [place] [address] [place], [place] [id number] Carlota Jin MD 1 [facility], [facility] 2 [place] [phone] 12/22/2024 6:45 EST Treatment [facility] - [place] [address] [place], [place] [id number] Carlota Jin MD 1 [facility], [facility] 2 [place] [phone] 12/25/2024 6:45 EST Treatment [facility] - [place] [address] [place], [place] [id number] Carlota Jin MD 1 [facility], [facility] 2 [place] [phone] 12/27/2024 6:45 EST Treatment [facility] - [place] [address] [place], [place] [id number] Carlota Jin MD 1 [facility], [facility] 2 [place] [phone] 12/29/2024 6:45 EST Treatment [facility] - [place] [address] [place], [place] [id number] Carlota Jin MD 1 [facility], [facility] 2 [place] [phone] 01/01/2025 6:45 EDT Treatment [facility] - [place] [address] [place], [place] [id number] Carlota Jin MD 1 [facility], [facility] 2 [place] [phone] 01/03/2025 6:45 EDT Treatment [facility] - [place] [address] [place], [place] [id number] Carlota Jin MD 1 [facility], Level [address] [place] [phone] 01/05/2025 6:45 EDT Treatment [facility] - [place] [address] [place], [place] [address] Carlota Jin MD 1 [facility], [facility] 2 [place] [phone] 01/08/2025 6:45 EDT Treatment [facility] - [place] [address] [place], [place] [id number] Carlota Jin MD 1 [facility], [facility] 2 [place] [phone] 01/10/2025 6:45 EDT Treatment [facility] - [place] [address] [place] [address] Carlota Jin MD 1 [facility], [facility] 2 [place] [phone] 01/12/2025 6:45 EDT Treatment [facility] [address] [place] [address] Carlota Jin MD 1 [facility], [facility] 2 [place] [phone] 01/15/2025 6:45 EDT Treatment [facility] D[facility] [address] [place], [place] [id number] Carlota Jin MD 1 [facility], [facility] 2 [place] [phone] 01/17/2025 6:45 EDT Treatment [facility] - [place] [address] [place], [place] [id number] Carlota Jin MD 1 [facility], [facility] 2 [place] [phone] 01/19/2025 6:45 EDT Treatment [facility] - [place] [address] [place], [place] [id number] Carlota Jin MD 1 [facility], [facility] 2 [place] [phone] 01/22/2025 6:45 EDT Treatment [facility] - [place] [address] [place], [place] [id number] Carlota Jin MD [address] [place] [address], [facility] 2 [place] [phone] 01/24/2025 6:45 EDT Treatment [facility] - [place] [address] [place], [place] [id number] Carlota Jin MD 1 [facility], [facility] 2 [place] [phone] 01/26/2025 6:45 EDT Treatment [facility] - [place] [address] [place], [place] [id number] Carlota Jin MD 1 [facility], [facility] 2 [place] [phone] 01/29/2025 6:45 EDT Treatment [facility] - [place] [address] [place], [place] [id number] Carlota Jin MD 1 [facility], [facility] 2 [place] [phone] 01/31/2025 6:45 EDT Treatment [facility] - [place] [address] [place], [place] [id number] Carlota Jin MD 1 [facility], [facility] 2 [place] [phone] 02/02/2025 6:45 EDT Treatment [facility] - [place] [address] [place], [place] [id number] Carlota Jin MD 1 [facility], [address] [phone] 02/05/2025 6:45 EDT Treatment [facility] - [place] [address] [place], [place] [id number] Carlota Jin MD 1 [facility], [address] [phone] 02/07/2025 6:45 EDT Treatment [facility] - [place] [address] [place], [place] [id number] Carlota Jin MD 1 [facility], [facility] 2 [place] [phone] 02/09/2025 6:45 EDT Treatment [facility] D[facility] - [place] [address] [place], [place] [id number] Carlota Jin MD 1 [facility], [facility] 2 [place] [phone] 02/12/2025 6:45 EDT Treatment [facility] D[facility]ysi - [place] [address] [place], [place] [id number] Carlota Jin MD [address] [phone] 02/14/2025 6:45 EDT Treatment [facility] - [place] [address] [place], [place] [id number] Carlota Jin MD [address] [place] [phone] 02/16/2025 6:45 EDT Treatment [facility] - [place] [address] [place], [place] [id number] Carlota Jin MD [address] [place] [phone] 02/19/2025 6:45 EDT Treatment [facility] - [place] [address] [place], [place] [id number] Carlota Jin MD [address] [place] [phone] 02/21/2025 6:45 EDT Treatment [facility] D[facility]ysi - [place] [address] [place], [place] [id number] Carlota Jin MD [address] [place] [phone] documented as of this encounter Visit Diagnoses Not on filedocumented in this encounter Care Teams Inspector Hairspring Relationship Specialty Start Date End Date Villegas, Adeola, SHIPPING AND RECEIVING SUPERVISOR [address] [place] [address] PCP - General 10/12/16 07/06/23 documented as of this encounter
--- OUTSIDE RECORDS SUMMARY | 2024-12-05 12:28 | XMS_ITS | Encounter Summary ---
Author Organization [facility] Address [address] [place] [address] Care Team Providers Care Veterinary Technology Instructor Name Role Phone Adeola Villegas MONA Primary Care Provider [phone] Encounter Details Date Type Department Care Team (Late st Contact Info) Description 01/27/2023 7:15 EDT Treatment [facility] [address] [place], [place] [id number] Carlota Jin MD 1 [facility], Level [address] [place] [phone] ESRD (end stage renal disease) ([facility]) (Primary Dx); Abnormal albumin Social History Tobacco [...] - Temperature - - Respiratory Rate 16 01/27/2023 0659 EDT Oxygen Saturation - - Inhaled Oxygen Concentration - - Weight 92.5 kg (203 lb 14.8 oz) 01/27/2023 0659 EDT Height - - Body Mass Index 29.68 01/25/2023 0751 EDT documented in this encounter Miscellaneous Notes * Flowsheet Note - Melissa Crespo RN - 01/27/2023 1431 EDT 01/27/23 1116 Post-Hemodialysis Assessment Total Blood Processed (L) 89.9 Liters Dialyzer Clearance Lightly streaked Treatment UFR (ml:kg:hr) 10.49 ml:kg:hr Fluid Removed (L) 4 L Post-Dialysis Scale Weight 88.7 kg (195 lb 8.8 oz) Wheelchair Weight 0 kg (0 lb) Prosthesis Weight 0 kg (0 lb) Post-Treatment Weight (kg) 88.7 Treatment Weight Change (kg) 3.8 kg Day Target Weight (kg) 89 Post Sitting/Lying BP 113/65 Post Sitting/Lying pulse 60 Post Standing BP 112/57 Post Standing Pulse 65 Temp 36.5 ??C (97.7 ??F) Temp [...] Dialysis Rounding - Skye Gomez NP - 01/27/2023 0715 EDT Dialysis Provider's Routine Assessment The visit was conducted via telehealth (audio/video) between the [facility] dialysis [facility] and the provider from their [...] Changes to current prescriptions/orders: None No acute issues, has been reaching TW, BP stable Skye Gomez NP documented in this encounter Plan of Treatment Upcoming Encounters Date Type Department Care Team (Late st Contact Info) Description 12/06/2024 6:45 EST Treatment [facility] Dialysi [facility] [address] [place], [place] [phone] Carlota Jin MD 1 [facility], [facility] 2 [place] [phone] 12/08/2024 6:45 EST Treatment [facility] Dialysi [facility] [address] [place], [place] [id number] Carlota Jin MD [address] [place] [phone] 12/11/2024 6:45 EST Treatment [facility] [address] [place], [place] [id number] Carlota Jin MD [address] [place] [address], [facility] 2 [place] [phone] 12/13/2024 6:45 EST Treatment [facility] Dialysi [facility] [address] [place], [place] [id number] Carlota Jin MD [address] [place] [address], [facility] 2 [place] [phone] 12/15/2024 6:45 EST Treatment [facility] D[facility]ysi - [place] [address] [place], [place] [address] Carlota Jin MD 1 [facility], [facility] 2 [place] [phone] 12/18/2024 6:45 EST Treatment [facility] - [place] [address] [place] [address] Carlota Jin MD 1 [facility], [address] [phone] 12/20/2024 6:45 EST Treatment [facility] - [place] [address] [place], [place] [id number] Carlota Jin MD 1 [facility], [address] [phone] 12/22/2024 6:45 EST Treatment [facility] - [place] [address] [place], [place] [id number] Carlota Jin MD 1 [facility], [address] [phone] 12/25/2024 6:45 EST Treatment [facility] Dialysi [facility] [address] [place], [place] [id number] Carlota Jin MD 1 [facility], [address] [phone] 12/27/2024 6:45 EST Treatment [facility] - [place] [address] [place], [place] [id number] Carlota Jin MD 1 [facility], [facility] 2 [place] [phone] 12/29/2024 6:45 EST Treatment [facility] Dialysi - [place] [address] [place], [place] [phone] Carlota Jin MD 1 [facility], [facility] 2 [place] [phone] 01/01/2025 6:45 EDT Treatment [facility] - [place] [address] [place], [place] [id number] Carlota Jin MD 1 [facility], [address] [phone] 01/03/2025 6:45 EDT Treatment [facility] - [place] [address] [place], [place] [id number] Carlota Jin MD 1 [facility], [address] [phone] 01/05/2025 6:45 EDT Treatment [facility] - [place] [address] [place], [place] [id number] Carlota Jin MD 1 [facility], [facility] 2 [place] [phone] 01/08/2025 6:45 EDT Treatment [facility] Dialysi [facility] [address] [place], [place] [id number] Carlota Jin MD 1 [facility], [facility] 2 [place] [phone] 01/10/2025 6:45 EDT Treatment [facility] - [place] [address] [place], [place] [address] Carlota Jin MD 1 [facility], [facility] 2 [place] [phone] 01/12/2025 6:45 EDT Treatment [facility] Dialysi - [place] [address] [place], [place] [id number] Carlota Jin MD 1 [facility], [facility] 2 [place] [phone] 01/15/2025 6:45 EDT Treatment [facility] Dialysi - [place] [address] [place], [place] [id number] Carlota Jin MD 1 [facility], [facility] 2 [place] [phone] 01/17/2025 6:45 EDT Treatment [facility] - [place] [address] [place], [place] [id number] Carlota Jin MD 1 [facility], [facility] 2 [place] [phone] 01/19/2025 6:45 EDT Treatment [facility] - [place] [address] [place], [place] [id number] Carlota Jin MD 1 [facility], [facility] 2 [place] [phone] 01/22/2025 6:45 EDT Treatment [facility]i - [place] [address] [place], [place] [id number] Carlota Jin MD 1 [facility], [facility] 2 [place] [phone] 01/24/2025 6:45 EDT Treatment [facility] D[facility]ysi - [place] [address] [place], [place] [address]486[address] Carlota Jin MD 1 [facility], [facility] 2 [place] [phone] 01/26/2025 6:45 EDT Treatment [facility] Dialysi - [place] [address] [place], [place] [id number] Carlota Jin MD 1 [facility], [facility] 2 [place] [phone] 01/29/2025 6:45 EDT Treatment [facility]i - [place] [address] [place], [place] [id number] Carlota Jin MD 1 [facility], [facility] 2 [place] [phone] 01/31/2025 6:45 EDT Treatment [facility] - [place] [address] [place] [address] Carlota Jni MD 1 [facility], [facility] 2 [place] [phone] 02/02/2025 6:45 EDT Treatment [facility] - [place] [address] [place], [place] [phone] Carlota Jin MD 1 [facility], [facility] 2 [place] [phone] 02/05/2025 6:45 EDT Treatment [facility] - [place] [address] [place], [place] [id number] Carlota Jin MD 1 [facility], [facility] 2 [place] [phone] 02/07/2025 6:45 EDT Treatment [facility] [place] [address] [place], [place] [id number] Carlota Jin MD [address] [place] [address], [facility] 2 [place] [phone] 02/09/2025 6:45 EDT Treatment [facility] [place] [address] [place], [place] [id number] Carlota Jin MD [address] [place] [address], [address] [phone] 02/12/2025 6:45 EDT Treatment [facility] [place] [address] [place], [place] [id number] Carlota Jin MD [address] [place] [address], [facility] 2 [place] [phone] 02/14/2025 6:45 EDT Treatment [facility] [place] [address] [place], [place] [id number] Carlota Jin MD 1 [facility], [facility] 2 [place] [phone] 02/16/2025 6:45 EDT Treatment [facility] [place] [address] [place], [place] [id number] Carlota Jin MD 1 [facility], Level [address] [place] [phone] 02/19/2025 6:45 EDT Treatment [facility] - [place] [address] [place], [place] [id number] Carlota Jin MD 1 [facility], [facility] 2 [place] [phone] 02/21/2025 6:45 EDT Treatment [facility] [place] [address] [place] [address] Carlota Jin MD 1 [facility], [facility] 2 [place] [phone] documented as of this encounter Procedures Procedure Name Priority Date/Time Associated Diagnosis Comments COMPLETE BLOOD COUNT Routine 01/27/2023 7:08 EDT ESRD (end stage renal disease) ([facility]) HEMODIALYSIS Routine 01/27/2023 7:00 EDT ESRD (end stage renal disease) ([facility]) documented in this encounter Results * (ABNORMAL) COMPLETE BLOOD COUNT (01/27/2023 7:08 EDT) WBC 9.36 4.00 - 10.40 K/cmm 01/27/2023 21:20 [facility] RBC 3.26(L) 4.36 - 5.78 M/cmm 01/27/2023 21:20 [facility] Hemoglobin 10.2(L) 13.8 - 17.3 gm/dL 01/27/2023 21:20 [facility] HCT 31.0(L) 39.5 - 50.2 % 01/27/2023 21:20 [facility] MCV 95 81 - 95 fl 01/27/2023 21:20 EDT [facility] MCH 31.3 27.6 - 33.0 pg 01/27/2023 21:20 EDT [facility] MCHC 32.9 32.8 - 36.4 gm/dL 01/27/2023 21:20 EDT [facility] RDW-CV 12.7 <14.2 % 01/27/2023 21:20 EDT [facility] RDW-SD 44.6 <46.0 fl 01/27/2023 21:20 EDT [facility] PLT 225 141 - 377 K/cmm 01/27/2023 21:20 [facility] MPV 11.8 9.5 - 12.7 fl 01/27/2023 21:20 [facility] Blood VENOUS BLOOD / Unknown Venipuncture / Unknown 01/27/2023 7:08 EDT 01/27/2023 7:08 EDT us Carlota Jin MD HEMATOLOGY & PF4 ORDERABL ES Final Result [facility] [address] [place] [address] documented in this encounter Visit Diagnoses Diagnosis ESRD (end stage renal disease) ([facility])- Primary End stage renal disease Abnormal albumin Other nonspecific findings on examination of blood documented in this encounter Administered Medications Inactive Administered Medications - up to 3 most recent administrations Medication Order MAR Action Action Date Dose Rate Site heparin injection 9,000 Units 9,000 Units, intravenous, ONCE IN DIALYSIS, 1 dose, On Wed01/27/23 at 0715, Routine, Dialysis, Now x1 bolus 4500 units to be given at the beginning of dialysis 1500 units/hour to be given over the course of dialysis (9000 units total). Stop 1 hour prior to end of treatment. To be administered per Policy [id number].Indications:ESRD (end stage renal disease) ([facility]) Given 01/27/2023 7:11 EDT 9,000 Units nepro w/ carb steady bolus 237 mL 237 mL (1 Package), oral, ONCE IN DIALYSIS, 1 dose, On Wed01/27/23 at 0715, RoutineIndications:ESRD (end stage renal disease) ([facility]),Abnormal albumin Given 01/27/2023 8:14 EDT 237 mL documented in this encounter Orders Dialysis Count Last Ordered Date First Orde red Date HEMODIALYSIS 1 01/27/2023 documented in this encounter Care Teams Veterinary Technology Instructor Relationship Specialty Start Date End Date Adeola Villegas APRN [address] [place] [address] PCP - General 10/12/16 07/06/23 documented as of this encounter
--- OUTSIDE RECORDS SUMMARY | 2024-12-05 12:28 | XMS_ITS | Encounter Summary ---
Author Organization [facility] Address [address] [place] [address] Care Team Providers Care Infant Babysitter Name Role Phone Adeola Villegas MONA Primary Care Provider [phone] Encounter Details Date Type Department Care Team (Late st Contact Info) Description 01/25/2023 7:15 EDT Treatment [facility] [address] [place], [place] [id number] Carlota Jin MD 1 [facility], Level [address] [place] [address] ESRD (end stage renal disease) ([facility]) (Primary Dx); Hypoalbuminemia; Encounter for immunization Social History Tobacco Use [...] - Temperature - - Respiratory Rate 16 01/25/2023 0705 EDT Oxygen Saturation - - Inhaled Oxygen Concentration - - Weight 87 kg (191 lb 12.8 oz) 01/25/2023 0751 ED T Height 176.5 cm (5' 9.5) 01/25/2023 0751 EDT Body Mass Index 27.92 01/25/2023 0751 EDT documented in this encounter Miscellaneous Notes * Flowsheet Note - Melissa Crespo RN - 01/25/2023 1424 EDT 01/25/23 1123 Post-Hemodialysis Assessment Total Blood Processed (L) 89.5 Liters Dialyzer Clearance Lightly streaked Treatment UFR (ml:kg:hr) 9.44 ml:kg:hr Fluid Removed (L) 3.5 L Post-Dialysis Scale Weight 88.6 kg (195 lb 5.2 oz) Wheelchair Weight 0 kg (0 lb) Prosthesis Weight 0 kg (0 lb) Post-Treatment Weight (kg) 88.6 Treatment Weight Change (kg) 3.4 kg Day Target Weight (kg) 89 Post Sitting/Lying BP 126/68 Post Sitting/Lying pulse 57 Post Standing BP 115/59 Post Standing Pulse 61 Temp 36.5 ??C (97.7 ??F) Temp src [...] Dialysis Rounding - Carlota Jin MD - 01/25/2023 0715 EDT Dialysis Provider's Routine Assessment Gersonharish Kimaleks was seen and examined as appropriate during Dialysis. Pertinent lab results were reviewed. Changes since last visit: None Changes to current prescriptions/orders: None Exam: Gen: NAD, awake, alert Resp: CTAB, unlabored breathing CV: RRR Abd: soft Ext: trace edema Neuro: AAOx3, moves all ext spont Skin: exposed skin is warm and dry with no obvious lesion or rash No acute issues. Carlota Jin MD documented in this encounter Plan of Treatment Upcoming Encounters Date Type Department Care Team (Late st Contact Info) Description 12/06/2024 6:45 EST Treatment [facility] [address] [place], [place] [id number] Carlota Jin MD 1 [facility], [facility] [address] [place] [phone] 12/08/2024 6:45 EST Treatment [facility] [address] [place], [place] [id number] Carlota Jin MD 1 [facility], [address] [phone] 12/11/2024 6:45 EST Treatment [facility] [place] [address] [place], [place] [id number] Carlota Jin MD 1 [facility], [address] [phone] 12/13/2024 6:45 EST Treatment [facility] [place] [address] [place], [place] [id number] Carlota Jin MD [address] [phone] 12/15/2024 6:45 EST Treatment [facility] [address] [place], [place] [id number] Carlota Jin MD [address] [phone] 12/18/2024 6:45 EST Treatment [facility] [place] [address] [place], [place] [id number] Carlota Jin MD 1 [facility], [facility] [address] [place] [phone] 12/20/2024 6:45 EST Treatment [facility] [place] [address] [place], [place] [id number] Carlota Jin MD 1 [facility], [facility] [address] [place] [phone] 12/22/2024 6:45 EST Treatment [facility] [place] [address] [place], [place] [id number] Carlota Jin MD 1 [facility], [facility] [address] [place] [phone] 12/25/2024 6:45 EST Treatment [facility] [place] [address] [place] [address] Carlota Jin MD 1 [facility], [facility] [address] [place] [phone] 12/27/2024 6:45 EST Treatment [facility] [place] [address] [place], [place] [id number] Carlota Jin MD 1 [facility], [facility] [address] [place] [phone] 12/29/2024 6:45 EST Treatment [facility] [place] [address] [place], [place] [id number] Carlota Jin MD 1 [facility], [facility] [address] [place] [phone] 01/01/2025 6:45 EDT Treatment [facility] [place] [address] [place], [place] [address] Carlota Jin MD 1 [facility], [facility] [address] [place] [phone] 01/03/2025 6:45 EDT Treatment [facility] [place] [address] [place], [place] [id number] Carlota Jin MD 1 [facility], [facility] [address] [place] [phone] 01/05/2025 6:45 EDT Treatment [facility] [place] [address] [place], [place] [id number] Carlota Jin MD 1 [facility], [address] [phone] 01/08/2025 6:45 EDT Treatment [facility] [place] [address] [place], [place] [id number] Carlota Jin MD [address] [phone] 01/10/2025 6:45 EDT Treatment [facility] [place] [address] [place], [place] [id number] Carlota Jin MD [address] [phone] 01/12/2025 6:45 EDT Treatment [facility] [place] [address] [place], [place] [id number] Carlota Jin MD 1 [facility] 2 [place] [phone] 01/15/2025 6:45 EDT Treatment [facility] [place] [address] [place], [place] [id number] Carlota Jin MD 1 [facility], [facility] [address] [place] [phone] 01/17/2025 6:45 EDT Treatment [facility] [place] [address] [place], [place] [id number] Carlota Jin MD 1 [facility], [facility] [address] [place] [phone] 01/19/2025 6:45 EDT Treatment [facility] [place] [address] [place], [place] [id number] Carlota Jin MD 1 [facility], [facility] [address] [place] [phone] 01/22/2025 6:45 EDT Treatment [facility] [place] [address] [place], [place] [id number] Carlota Jin MD 1 [facility], [facility] [address] [place] [phone] 01/24/2025 6:45 EDT Treatment [facility] [place] [address] [place], [place] [id number] aCrlota Jin MD 1 [facility], [facility] [address] [place] [phone] 01/26/2025 6:45 EDT Treatment [facility] [place] [address] [place], [place] [id number] Carlota Jin MD 1 [facility], [facility] [address] [place] [phone] 01/29/2025 6:45 EDT Treatment [facility] [place] [address] [place], [place] [phone] Carlota Jin MD [address] [place] [address], [address] [phone] 01/31/2025 6:45 EDT Treatment [facility] [place] [address] [place], [place] [id number] Carlota Jin MD [address] [place] [address], [address] [phone] 02/02/2025 6:45 EDT Treatment [facility] [place] [address] [place], [place] [id number] Carlota Jin MD [address] [place] [address], [facility] [address] [place] [phone] 02/05/2025 6:45 EDT Treatment [facility] [place] [address] [place], [place] [phone] Carlota Jin MD 1 [facility], [facility] 2 [place] [phone] 02/07/2025 6:45 EDT Treatment [facility] [place] [address] [place], [place] [id number] Carlota Jin MD 1 [facility], [facility] [address] [place] [phone] 02/09/2025 6:45 EDT Treatment [facility] [place] [address] [place], [place] [address] Carlota Jin MD 1 [facility], [facility] [address] [place] [phone] 02/12/2025 6:45 EDT Treatment [facility] [place] [address] [place] [address] [address] Jin MD 1 [facility], [facility] [address] [place] [phone] 02/14/2025 6:45 EDT Treatment [facility] [place] [address] [place], [place] [address] [phone] MD 1 [facility], [facility] [address] [place] [phone] 02/16/2025 6:45 EDT Treatment [facility] [place] [address] [place] [address] Carlota Jin MD 1 [facility], [facility] [address] [place] [phone] 02/19/2025 6:45 EDT Treatment [facility] [place] [address] [place], [place] [id number] Carlota Jin MD 1 [facility], [facility] [address] [place] [phone] 02/21/2025 6:45 EDT Treatment [facility] [place] [address] [place] [address] Carlota Jin MD 1 [facility], [address] [place] [phone] documented as of this encounter Procedures Procedure Name Priority Date/Time Associated Diagnosis Comments POSTDIALYSIS BUN WITH URR CALCULATION Routine 01/25/2023 11:31 EDT Hypoalbuminemia Encounter for immunization ESRD (end stage renal disease) ([facility]) TRANSFERRIN SATURATION Routine 01/25/2023 7:16 EDT Hypoalbuminemia Encounter for immunization ESRD (end stage renal disease) ([facility]) DIALYSIS ROUTINE - DIALYSIS ONLY (BUN, K, NA, CL, CO2, SANJEEV, ALB, MG, PHOS, ALKP, AST) Routine 01/25/2023 7:16 EDT Hypoalbuminemia Encounter for immunization ESRD (end stage renal disease) ([facility]) PROFILE IRON STUDIES (INCLUDES IRON, IBC, AND FERRITIN) Routine 01/25/2023 7:16 EDT Hypoalbuminemia Encounter for immunization ESRD (end stage renal disease) ([facility]) PTH INTACT Routine 01/25/2023 7:16 EDT Hypoalbuminemia Encounter for immunization ESRD (end stage renal disease) ([facility]) FERRITIN Routine 01/25/2023 7:16 EDT Hypoalbuminemia Encounter for immunization ESRD (end stage renal disease) ([facility]) HEMODIALYSIS Routine 01/25/2023 7:05 EDT ESRD (end stage renal disease) ([facility]) documented in this encounter Results * (ABNORMAL) POSTDIALYSIS BUN WITH URR CALCULATION (01/25/2023 11:31 EDT) BUN, Postdialysis 18 10 - 26 mg/dL 01/25/2023 22:05 EDT [facility] Urea Reduction Rate 72.3 Not Established % 01/25/2023 22:05 EDT [facility] Comment: NOTE: Reference range not established for Urea Reduction Rate. BUN 65(H) 10 - 26 mg/dL 01/25/2023 22:05 EDT [facility] Blood VENOUS BLOOD / Unknown Venipuncture / Unknown 01/25/2023 11:31 EDT 01/25/2023 11:31 EDT Carlota Jin MD CHEMISTRY & BLOOD GAS ORD ERABLES Final Result Performing Organization Address City/[facility]/ZIP Co de Phone Number [facility] [address] [place] [address] * (ABNORMAL) FERRITIN (01/25/2023 7:16 EDT) Ferritin 691(H) 22 - 322 ng/mL 01/25/2023 23:33 EDT [facility] Blood VENOUS BLOOD / Unknown Venipuncture / Unknown 01/25/2023 7:16 EDT 01/25/2023 7:18 EDT Carlota Jin MD CHEMISTRY & BLOOD GAS ORD ERABLES Final Result Performing Organization Address City/[facility]/ZIP Co de Phone Number [facility] [address] [place] [address] * (ABNORMAL) TRANSFERRIN SATURATION (01/25/2023 7:16 EDT) Iron 46(L) 49 - 181 ??g/dL 01/25/2023 22:20 EDT [facility] Iron Binding Capacity 224(L) 240 - 450 ??g/dL 01/25/2023 22:20 T [facility] Transferrin Saturation 21 15 - 45 % 01/25/2023 22:20 EDT [facility] Blood VENOUS BLOOD / Unknown Venipuncture / Unknown 01/25/2023 7:16 EDT 01/25/2023 7:18 EDT us Carlota Jin MD CHEMISTRY & BLOOD GAS ORD ERABLES Final Result Performing Organization Address City/[facility]/ZIP Co de Phone Number [facility] [address] [place] [address] * (ABNORMAL) PTH INTACT (01/25/2023 7:16 EDT) Intact PTH 239(H) 19 - 88 pg/mL 01/25/2023 23:36 EDT [facility] Blood VENOUS BLOOD / Unknown Venipuncture / Unknown 01/25/2023 7:16 EDT 01/25/2023 7:18 EDT Carlota Jin MD CHEMISTRY & BLOOD GAS ORD ERABLES Final Result Performing Organization Address [facility] Co de Phone Number [facility] [address] [place] [address] * (ABNORMAL) DIALYSIS ROUTINE - DIALYSIS ONLY (BUN, K, NA, CL, CO2, SANJEEV, ALB, MG, PHOS, ALKP, AST) (01/25/2023 7:16 EDT) Pathologist [facility] Sodium 134(L) 136 - 145 mmol/L 01/25/2023 22:04 T [facility] Potassium 5.2(H) 3.5 - 5.0 mmol/L 01/25/2023 22:04 [facility] Chloride 98 96 - 110 mmol/L 01/25/2023 22:04 T [facility] CO2 Total 25 22 - 32 mmol/L 01/25/2023 22:04 [facility] Calcium 9.0 8.5 - 10.5 mg/dL 01/25/2023 22:04 [facility] Albumin 3.5 3.4 - 4.9 g/dL 01/25/2023 22:04 [facility] Phosphorus 7.1(H) 2.5 - 4.5 mg/dL 01/25/2023 22:04 [facility] Calcium Phos Product 63.9 See Note mg/dL 01/25/2023 22:04 [facility] Comment: NOTE: Reference range not established BUN, Predialysis 65(H) 10 - 26 mg/dL 01/25/2023 22:04 [facility] AST 17 15 - 46 U/L 01/25/2023 22:04 [facility] Alkaline Phosphatase 85 38 - 126 U/L 01/25/2023 22:04 [facility] Magnesium 2.8 1.7 - 2.8 mg/dL 01/25/2023 22:04 [facility] Anion Gap 11 5 - 14 01/25/2023 22:04 [facility] Calculated Calcium 9.4 8.9 - 10.5 mg/dL 01/25/2023 22:04 [facility] Blood VENOUS BLOOD / Unknown Venipuncture / Unknown 01/25/2023 7:16 EDT 01/25/2023 7:18 EDT us Carlota Jin MD CHEMISTRY & BLOOD GAS ORD ERABLES Final Result [facility] [address] [place] [address] documented in this encounter Visit Diagnoses Diagnosis ESRD (end stage renal disease) ([facility])- Primary End stage renal disease Hypoalbuminemia Other disorders of plasma protein metabolism Encounter for immunization Need for other specified prophylactic vaccination against single bacterial disease documented in this encounter Administered Medications Inactive Administered Medications - up to 3 most recent administrations Medication Order MAR Action Action Date Dose Rate Site epoetin ken (EPOGEN) 20,000 unit/2 mL injection 500 Units 500 Units, intravenous, ONCE IN DIALYSIS, 1 dose, On Wed01/25/23 at 0730, Routine, DialysisIndications:Hypoalbumine bozena,Encounter for immunization,ESRD (end stage renal disease) ([facility]) Given 01/25/2023 8:13 EDT 500 Units heparin injection 9,000 Units 9,000 Units, intravenous, ONCE IN DIALYSIS, 1 dose, On Wed01/25/23 at 0730, Routine, Dialysis, Now x1 bolus 4500 units to be given at the beginning of dialysis 1500 units/hour to be given over the course of dialysis (9000 units total). Stop 1 hour prior to end of treatment. To be administered per Policy [id number].Indications:Hypoalbumine bozena,Encounter for immunization,ESRD (end stage renal disease) ([facility]) Given 01/25/2023 7:18 EDT 9,000 Units nepro w/ carb steady bolus 237 mL 237 mL (1 Package), oral, ONCE IN DIALYSIS, 1 dose, On Wed01/25/23 at 0730, RoutineIndications:Hypoalbuminem ia,ESRD (end stage renal disease) ([facility]) Given 01/25/2023 8:14 EDT 237 mL documented in this encounter Orders Dialysis Count Last Ordered Date First Orde red Date HEMODIALYSIS 1 01/25/2023 documented in this encounter Care Teams Infant Babysitter Relationship Specialty Start Date End Date Adeola Villegas APRN [address] [place] [address] PCP - General 10/12/16 07/06/23 documented as of this encounter
--- OUTSIDE RECORDS SUMMARY | 2024-12-05 12:28 | XMS_ITS | Encounter Summary ---
Author Organization [facility] Address [address] [place] [address] Care Team Providers Care Manager Installation Name Role Phone Adeola Villegas MONA Primary Care Provider [phone] Ken Greer MD Primary Care Provider [phone] Kiel Powers Unavailable Unavailable Encounter Details Date Type Department Care Team (Late st Contact Info) Description 01/27/2023 Documentation Visit [facility] [place] [address] [place], [place] [id number] Alexa Estrada [facility] [address] [place] [address] Social History Tobacco Use Types Packs/Day Years [...] EST Treatment [facility] [address] [place], [place] [id number] aCrlota Jin MD 1 [facility], Level [address] [place] [address] 12/08/2024 6:45 EST Treatment [facility] [place] [address] [place], [place] [id number] Carlota Jin MD 1 [facility], [facility] 2 [place] [phone] 12/11/2024 6:45 EST Treatment [facility] [place] [address] [place], [place] [id number] Carlota Jin MD 1 [facility], [facility] 2 [place] [phone] 12/13/2024 6:45 EST Treatment [facility] [place] [address] [place], [place] [id number] Carlota Jin MD 1 [facility], [facility] 2 [place] [phone] 12/15/2024 6:45 EST Treatment [facility] [place] [address] [place], [place] [id number] Carlota Jin MD 1 [facility], [facility] 2 [place] [phone] 12/18/2024 6:45 EST Treatment [facility] [place] [address] [place], [place] [id number] Carlota Jin MD 1 [facility], [facility] 2 [place] [phone] 12/20/2024 6:45 EST Treatment [facility] [place] [address] [place], [place] [id number] Carlota Jin MD 1 [facility], Level [address] [place] [phone] 12/22/2024 6:45 EST Treatment [facility] [place] [address] [place], [place] [address] Carlota Jin MD 1 [facility], [facility] 2 [place] [phone] 12/25/2024 6:45 EST Treatment [facility] [place] [address] [place], [place] [id number] Carlota Jin MD 1 [facility], [facility] 2 [place] [phone] 12/27/2024 6:45 EST Treatment [facility] [place] [address] [place], [place] [id number] Carlota Jin MD 1 [facility], [facility] 2 [place] [phone] 12/29/2024 6:45 EST Treatment [facility] [address] [place] [address] Carlota Jin MD 1 [facility], [facility] 2 [place] [phone] 01/01/2025 6:45 EDT Treatment [facility] [place] [address] [place], [place] [address] Carlota Jin MD 1 [facility], [facility] 2 [place] [phone] 01/03/2025 6:45 EDT Treatment [facility] [place] [address] [place], [place] [id number] Carlota Jin MD 1 [facility], [facility] 2 [place] [phone] 01/05/2025 6:45 EDT Treatment [facility] [place] [address] [place], [place] [id number] Carlota Jin MD 1 [facility], [facility] 2 [place] [phone] 01/08/2025 6:45 EDT Treatment [facility] [place] [address] [place], [place] [id number] Carlota Jin MD [address] [place] [address], [facility] 2 [place] [phone] 01/10/2025 6:45 EDT Treatment [facility] [place] [address] [place], [place] [id number] Carlota Jin MD [address] [place] [address], [facility] 2 [place] [phone] 01/12/2025 6:45 EDT Treatment [facility] [place] [address] [place], [place] [id number] Carlota Jin MD [address] [place] [address], [facility] 2 [place] [phone] 01/15/2025 6:45 EDT Treatment [facility] [place] [address] [place], [place] [id number] Carlota Jin MD 1 [facility], [facility] 2 [place] [phone] 01/17/2025 6:45 EDT Treatment [facility] [place] [address] [place], [place] [id number] Carlota Jin MD 1 [facility], [facility] 2 [place] [phone] 01/19/2025 6:45 EDT Treatment [facility] [place] [address] [place], [place] [id number] Carlota Jin MD 1 [facility], [facility] 2 [place] [phone] 01/22/2025 6:45 EDT Treatment [facility] [place] [address] [place], [place] [id number] Carlota Jin MD 1 [facility], [facility] 2 [place] [phone] 01/24/2025 6:45 EDT Treatment [facility] [address] [place], [place] [id number] Carlota Jin MD 1 [facility], [facility] 2 [place] [phone] 01/26/2025 6:45 EDT Treatment [facility] [place] [address] [place], [place] [id number] Carlota Jin MD 1 [facility], [facility] 2 [place] [phone] 01/29/2025 6:45 EDT Treatment [facility] [place] [address] [place], [place] [id number] Carlota Jin MD 1 [facility], [facility] 2 [place] [phone] 01/31/2025 6:45 EDT Treatment [facility] [place] [address] [place], [place] [id number] Carlota Jin MD 1 [facility], [facility] 2 [place] [phone] 02/02/2025 6:45 EDT Treatment [facility] [place] [address] [place], [place] [id number] Carlota Jin MD 1 [facility], [facility] 2 [place] [phone] 02/05/2025 6:45 EDT Treatment [facility] [place] [address] [place], [place] [address] Carlota Jin MD 1 [facility], [facility] 2 [place] [phone] 02/07/2025 6:45 EDT Treatment [facility] [place] [address] [place], [place] [id number] Carlota Jin MD 1 [facility], [facility] 2 [place] [phone] 02/09/2025 6:45 EDT Treatment [facility] [place] [address] [place] [address] Carlota Jin MD 1 [facility], [facility] 2 [place] [phone] 02/12/2025 6:45 EDT Treatment [facility] [place] [address] [place] [address] Carlota Jin MD 1 [facility], [address] [phone] 02/14/2025 6:45 EDT Treatment [facility] [place] [address] [place], [place] [address] Carlota Jin MD 1 [facility], [address] [phone] 02/16/2025 6:45 EDT Treatment [facility] [place] [address] [place], [place] [id number] Carlota Jin MD 1 [facility], [address] [phone] 02/19/2025 6:45 EDT Treatment [facility] [place] [address] [place], [place] [id number] Carlota Jin MD 1 [facility], [address] [phone] 02/21/2025 6:45 EDT Treatment [facility] [place] [address] [place], [place] [id number] Carlota Jin MD 1 [facility], [facility] 2 [place] [address] documented as of this encounter Visit Diagnoses Not on filedocumented in this encounter Additional Health Concerns Infection Onset Date Last Indicated Resolved Time COVID-19 Comment:COVID+ 11/05/23 [place] (see scan) 11/08/2023 11/08/2023 11/17/2023 13:58 EST R/O COVID-19 12/20/2023 12/20/2023 12/20/2023 7:14 EST COVID-19 Comment:Collected @ [facility]. 03/12/2024 03/13/2024 04/01/2024 22: 15 EDT R/O COVID-19 05/30/2024 05/30/2024 05/30/2024 20:5 0 EDT documented as of this encounter Care Teams Manager Installation Relationship Specialty Start Date End Date Adeola Villegas APRN [address] [place] [address] PCP - General 10/12/16 07/06/23 Ken Greer MD [address] [place] [address] PCP - General 07/07/23 Kiel Powers [employer] Installer Nephrology 05/31/24 documented as of this encounter
--- OUTSIDE RECORDS SUMMARY | 2024-12-05 12:28 | XMS_ITS | Encounter Summary ---
Author Organization [facility] Address [address] [place] [address] Care Team Providers Care Blindstitch Lining Feller Name Role Phone Adeola Villegas APRN Primary Care Provider Encounter Details Date Type Department Care Team (Late st Contact Info) Description 01/26/2023 Documentation Visit [facility] [address] [place], [place] [phone] Yoanna Degroot, RN Social History Tobacco Use [...] EST Treatment [facility] [address] [place] [id number] Carlota Jin MD 1 [facility], Level [address] [place] [address] 12/08/2024 6:45 EST Treatment [facility] [address] [place] [id number] Carlota Jin MD 1 [facility], [facility] 2 [place] [phone] 12/11/2024 6:45 EST Treatment [facility] [place] [address] [place], [place] [address] Carlota Jin MD 1 [facility], [facility] 2 [place] [phone] 12/13/2024 6:45 EST Treatment [facility] - [place] [address] [place], [place] [id number] Carlota Jin MD 1 [facility], [facility] 2 [place] [phone] 12/15/2024 6:45 EST Treatment [facility] [place] [address] [place], [place] [id number] Carlota Jin MD 1 [facility], [facility] 2 [place] [phone] 12/18/2024 6:45 EST Treatment [facility] [address] [place] [address] Carlota Jin MD 1 [facility], [facility] 2 [place] [phone] 12/20/2024 6:45 EST Treatment [facility] [place] [address] [place], [place] [id number] Carlota Jin MD 1 [facility], [facility] 2 [place] [phone] 12/22/2024 6:45 EST Treatment [facility] [place] [address] [place], [place] [id number] Carlota Jin MD 1 [facility], [facility] 2 [place] [phone] 12/25/2024 6:45 EST Treatment [facility] [place] [address] [place], [place] [id number] Carlota Jin MD 1 [facility], [facility] 2 [place] [phone] 12/27/2024 6:45 EST Treatment [facility] [place] [address] [place], [place] [id number] Carlota Jin MD 1 [facility], [facility] 2 [place] [phone] 12/29/2024 6:45 EST Treatment [facility] [place] [address] [place], [place] [id number] Carlota Jin MD 1 [facility], [facility] 2 [place] [phone] 01/01/2025 6:45 EDT Treatment [facility] [place] [address] [place], [place] [id number] Carlota Jin MD 1 [facility], [facility] 2 [place] [phone] 01/03/2025 6:45 EDT Treatment [facility] [place] [address] [place], [place] [id number] Carlota Jin MD 1 [facility], Level [address] [place] [phone] 01/05/2025 6:45 EDT Treatment [facility] - [place] [address] [place], [place] [address] Carlota Jin MD 1 [facility], [facility] 2 [place] [phone] 01/08/2025 6:45 EDT Treatment [facility] [place] [address] [place], [place] [id number] Carlota Jin MD 1 [facility], [facility] 2 [place] [phone] 01/10/2025 6:45 EDT Treatment [facility] [place] [address] [place] [address] Carlota Jin MD 1 [facility], [facility] 2 [place] [phone] 01/12/2025 6:45 EDT Treatment [facility] [address] [place] [address] Carlota Jin MD 1 [facility], [facility] 2 [place] [phone] 01/15/2025 6:45 EDT Treatment [facility] [address] [place], [place] [id number] Carlota Jin MD 1 [facility], [facility] 2 [place] [phone] 01/17/2025 6:45 EDT Treatment [facility] - [place] [address] [place], [place] [id number] Carlota Jin MD 1 [facility], [facility] 2 [place] [phone] 01/19/2025 6:45 EDT Treatment [facility] [place] [address] [place], [place] [id number] Carlota Jin MD 1 [facility], [facility] 2 [place] [phone] 01/22/2025 6:45 EDT Treatment [facility] [place] [address] [place], [place] [id number] Carlota Jin MD [address] [place] [address], [facility] 2 [place] [phone] 01/24/2025 6:45 EDT Treatment [facility] [place] [address] [place], [place] [id number] Carlota Jin MD 1 [facility], [facility] 2 [place] [phone] 01/26/2025 6:45 EDT Treatment [facility] [place] [address] [place], [place] [id number] Carlota Jin MD 1 [facility], [facility] 2 [place] [phone] 01/29/2025 6:45 EDT Treatment [facility] [place] [address] [place], [place] [id number] Carlota Jin MD 1 [facility], [facility] 2 [place] [phone] 01/31/2025 6:45 EDT Treatment [facility] - [place] [address] [place], [place] [id number] Carlota Jin MD 1 [facility], [facility] 2 [place] [phone] 02/02/2025 6:45 EDT Treatment [facility] [place] [address] [place], [place] [id number] Carlota Jin MD 1 [facility], [address] [phone] 02/05/2025 6:45 EDT Treatment [facility] - [place] [address] [place], [place] [id number] Carlota Jin MD 1 [facility], [address] [phone] 02/07/2025 6:45 EDT Treatment [facility] [place] [address] [place], [place] [id number] Carlota Jin MD 1 [facility], [facility] 2 [place] [phone] 02/09/2025 6:45 EDT Treatment [facility] [place] [address] [place], [place] [id number] Carlota Jin MD 1 [facility], [facility] 2 [place] [phone] 02/12/2025 6:45 EDT Treatment [facility] [place] [address] [place], [place] [id number] Carlota Jin MD [address] [phone] 02/14/2025 6:45 EDT Treatment [facility] - [place] [address] [place], [place] [id number] Carlota Jin MD [address] [place] [phone] 02/16/2025 6:45 EDT Treatment [facility] - [place] [address] [place], [place] [id number] Carlota Jin MD [address] [place] [phone] 02/19/2025 6:45 EDT Treatment [facility] - [place] [address] [place], [place] [id number] Carlota Jin MD [address] [place] [phone] 02/21/2025 6:45 EDT Treatment [facility] - [place] [address] [place], [place] [id number] Carlota Jin MD [address] [place] [phone] documented as of this encounter Visit Diagnoses Not on filedocumented in this encounter Care Teams Blindstitch Lining Feller Relationship Specialty Start Date End Date Villegas, [place], [employer] [address] [place] [address] PCP - General 10/12/16 07/06/23 documented as of this encounter
--- OUTSIDE RECORDS SUMMARY | 2024-12-05 12:28 | XMS_ITS | Encounter Summary ---
Author Organization [facility] Address [address] [place] [address] Care Team Providers Care Project Mgr Name Role Phone Adeola Villegas APRN Primary Care Provider [phone] Encounter Details Date Type Department Care Team (Late st Contact Info) Description 02/03/2023 Documentation Visit [facility] [address] [place], [place] [id number] Skye Gomez NP 1 [facility], [facility] [address] [place] [address] Social History Tobacco Use Types [...] 12/06/2024 6:45 EST Treatment [facility] [address] [place] [id number] Carlota Jin MD 1 [facility], [facility] [address] [place] [phone] 12/08/2024 6:45 EST Treatment [facility] [place] [address] [place], [place] [id number] Carlota Jin MD 1 [facility], [facility] [address] [place] [phone] 12/11/2024 6:45 EST Treatment [facility] [place] [address] [place], [place] [id number] Carlota Jin MD 1 [facility], [facility] [address] [place] [phone] 12/13/2024 6:45 EST Treatment [facility] - [place] [address] [place], [place] [id number] Carlota Jin MD 1 [facility], [facility] [address] [place] [phone] 12/15/2024 6:45 EST Treatment [facility] - [place] [address] [place], [place] [id number] Carlota Jin MD 1 [facility], [facility] [address] [place] [phone] 12/18/2024 6:45 EST Treatment [facility] - [place] [address] [place], [place] [id number] Carlota Jin MD 1 [facility], [facility] [address] [place] [phone] 12/20/2024 6:45 EST Treatment [facility] [place] [address] [place], [place] [id number] Carlota Jin MD 1 [facility], [facility] [address] [place] [phone] 12/22/2024 6:45 EST Treatment [facility] [place] [address] [place], [place] [id number] Carlota Jin MD 1 [facility], [facility] [address] [place] [phone] 12/25/2024 6:45 EST Treatment [facility] [place] [address] [place], [place] [id number] Carlota Jin MD 1 [facility], [facility] 2 [place] [phone] 12/27/2024 6:45 EST Treatment [facility] [place] [address] [place], [place] [id number] Carlota Jin MD 1 [facility], [facility] [address] [place] [phone] 12/29/2024 6:45 EST Treatment [facility] [address] [place], [place] [id number] Carlota Jin MD 1 [facility], [facility] [address] [place] [phone] 01/01/2025 6:45 EDT Treatment [facility] [address] [place], [place] [id number] Carlota Jin MD 1 [facility], [facility] 2 [place] [phone] 01/03/2025 6:45 EDT Treatment [facility] - [place] [address] [place], [place] [id number] Carlota Jin MD 1 [facility], [facility] 2 [place] [phone] 01/05/2025 6:45 EDT Treatment [facility] [place] [address] [place], [place] [id number] Carlota Jin MD [address] [place] [address], [address] [phone] 01/08/2025 6:45 EDT Treatment [facility] [place] [address] [place], [place] [id number] Carlota Jin MD [address] [place] [address], [address] [phone] 01/10/2025 6:45 EDT Treatment [facility] - [place] [address] [place], [place] [id number] Carlota Jin MD [address] [place] [address], [facility] 2 [place] [phone] 01/12/2025 6:45 EDT Treatment [facility] [place] [address] [place], [place] [id number] Carlota Jin MD 1 [facility], [facility] 2 [place] [phone] 01/15/2025 6:45 EDT Treatment [facility] [place] [address] [place], [place] [id number] Carlota Jin MD 1 [facility], [facility] 2 [place] [phone] 01/17/2025 6:45 EDT Treatment [facility] [place] [address] [place], [place] [address] Carlota Jin MD 1 [facility], [facility] 2 [place] [phone] 01/19/2025 6:45 EDT Treatment [facility] - [place] [address] [place], [place] [id number] Carlota Jin MD 1 [facility], [facility] 2 [place] [phone] 01/22/2025 6:45 EDT Treatment [facility] [place] [address] [place] [address] Carlota Jin MD 1 [facility], [facility] 2 [place] [phone] 01/24/2025 6:45 EDT Treatment [facility] [place] [address] [place], [place] [id number] Carlota Jin MD 1 [facility], [facility] 2 [place] [phone] 01/26/2025 6:45 EDT Treatment [facility] [place] [address] [place], [place] [id number] Carlota Jin MD 1 [facility], [facility] 2 [place] [phone] 01/29/2025 6:45 EDT Treatment [facility] [place] [address] [place], [place] [id number] Carlota Jin MD 1 [facility], [facility] 2 [place] [phone] 01/31/2025 6:45 EDT Treatment [facility] [place] [address] [place], [place] [id number] Carlota Jin MD 1 [facility], [facility] 2 [place] [phone] 02/02/2025 6:45 EDT Treatment [facility] [place] [address] [place] [address] Carlota Jin MD 1 [facility], [address] [phone] 02/05/2025 6:45 EDT Treatment [facility] - [place] [address] [place], [place] [id number] Carlota Jin MD 1 [facility], [facility] 2 [place] [phone] 02/07/2025 6:45 EDT Treatment [facility] - [place] [address] [place], [place] [id number] Cralota Jin MD 1 [facility], [facility] 2 [place] [phone] 02/09/2025 6:45 EDT Treatment [facility] [place] [address] [place] [address] Carlota Jin MD 1 [facility], [facility] 2 [place] [phone] 02/12/2025 6:45 EDT Treatment [facility] [place] [address] [place] [address] Carlota Jin MD 1 [facility], [facility] 2 [place] [phone] 02/14/2025 6:45 EDT Treatment [facility] [place] [address] [place] [address] Carlota Jin MD 1 [facility], [address] [phone] 02/16/2025 6:45 EDT Treatment [facility] [place] [address] [place] [address] Carlota Jin MD 1 [facility], [address] [phone] 02/19/2025 6:45 EDT Treatment [facility] [place] [address] [place] [address] Carlota Jin MD 1 [facility], [facility] 2 [place] [phone] 02/21/2025 6:45 EDT Treatment [facility] [place] [address] [place], [place] [id number] Carlota Jin MD 1 [facility], [facility] 2 [place] [phone] documented as of this encounter Visit Diagnoses Not on filedocumented in this encounter Care Teams Project Mgr Relationship Specialty Start Date End Date Adeola Villegas APRN [address] [place] [address] PCP - General 10/12/16 07/06/23 documented as of this encounter
--- OUTSIDE RECORDS SUMMARY | 2024-12-05 12:28 | XMS_ITS | Encounter Summary ---
Author Organization [facility] Address [address] [place] [address] Care Team Providers Care Gas Regulator Repairer Name Role Phone Adeola Villegas APRN Primary Care Provider [phone] Encounter Details Date Type Department Care Team (Late st Contact Info) Description 01/22/2023 7:15 EDT Treatment [facility] [address] [place], [place] [phone] Carlota Jin MD 1 [facility], Level [address] [place] [phone] ESRD (end stage renal disease) ([facility]) (Primary Dx); Hypoalbuminemia; Encounter for immunization Social [...] - Temperature - - Respiratory Rate 16 01/22/2023 0640 EDT Oxygen Saturation - - Inhaled Oxygen Concentration - - Weight 90.9 kg (200 lb 6.4 oz) 01/22/2023 0650 E DT Height - - Body Mass Index - - documented in this encounter Miscellaneous Notes * Flowsheet Note - Jacky Stroud RN - 01/22/2023 1352 EDT 01/22/23 1109 Post-Hemodialysis Assessment Total Blood Processed (L) 89.74 Liters Dialyzer Clearance Lightly streaked Treatment UFR (ml:kg:hr) 7.1 ml:kg:hr Critline refill Negative (BV1 -9.2, BV2 -9.2, HCT1 37.6, HCT2 37.5, Profile A) Fluid Removed (L) 2.67 L Post-Dialysis Scale Weight 88.3 kg (194 lb 10.7 oz) Wheelchair Weight 0 kg (0 lb) Prosthesis Weight 0 kg (0 lb) Post-Treatment Weight (kg) 88.3 Treatment Weight Change (kg) 2.6 kg Day Target Weight (kg) 87.9 Post Sitting/Lying BP 123/64 Post Sitting/Lying pulse 64 Post Standing BP 112/62 Post Standing Pulse 65 Temp 36.4 ??C (97.5 ??F) Temp src Temporal Post access assessment AVF/AFG Hemostasis achieved Yes Orientation Alert and Oriented x3 Yes Discharge Ambulation Methods Ambulatory without assistance Wrap up items Patient Response to Treatment Stable HD tx. pt had some cramping to the end of the tx. left 1.3kg over his TW. Comments Stable upon discharge * Flowsheet Note - Jacky Stroud RN - 01/22/2023 0711 EDT 01/22/23 0650 Pre-Dialysis Weights Pre-Dialysis Scale Weight 90.9 kg (200 lb 6.4 oz) Prosthesis Weight 0 kg (0 lb) Wheelchair Weight 0 kg (0 lb) Pre-Treatment Weight (kg) 90.9 Weight 90.9 kg (200 lb 6.4 oz) Excess Weight (kg) 3.9 Prime/Rinseback (mL) 500 mL Excess Volume to Prescribed Weight (mL) 4400 Interdialytic fluid gain/loss (kg) 4.7 Estimated UFR (mL/kg/hr) 9.63 Day Target UF Volume (mL) 3500 Target UF Volume Note pt agree with goal. he cramps when he attempt bigger goals Day Target Wt. Calc. (kg) 87.9 Pre-Hemodialysis Assessment Pre Sitting/Lying BP 158/85 Pre Sitting/Lying pulse 71 Pre Standing BP 151/74 Pre Standing Pulse 73 Temp 36 ??C (96.8 ??F) Hemodialysis access confirmed Yes AVF/AVG site and hands washed Yes Final Verification Final verification performed - Primary sign-off Have you been to the Emergency Department/Hospital since your last dialysis visit? No Any falls since last treatment? No Pre-Hemodialysis Comments attempting 3500/4400 Patient is being treated for an infection: No Patient has infection requiring hospitalization: No Heart Rate Heart Rate Regular Edema Assessment Edema? Yes Edema Location Peripheral, lower Edema Severity +1 Comment BLE Lung status Lung Status Wheezes Comment bilaterally, all lobes on inspiration Shortness of breath Shortness of breath? No Ambulation status Ambulation Methods Ambulates independently Orientation Alert and Oriented x3 Yes Cooperative Yes Appetite Appetite Good Nausea/Vomiting Nausea/Vomiting No Diarrhea Diarrhea No Pre access assessment Note pt stable for tx documented in this encounter Plan of Treatment Upcoming Encounters Date Type Department Care Team (Late st Contact Info) Description 12/06/2024 6:45 EST Treatment [facility] [address] [place], [place] [phone] Carlota Jin MD [address] [place] [phone] 12/08/2024 6:45 EST Treatment [facility] [address] [place], [place] [id number] Carlota Jin MD [address] [place] [address] 2 [place] [phone] 12/11/2024 6:45 EST Treatment [facility] [address] [place], [place] [id number] Carlota Jin MD [address] [place] [address] 2 [place] [phone] 12/13/2024 6:45 EST Treatment [facility] [place] [address] [place], [place] [id number] Carlota Jin MD 1 [facility], [facility] 2 [place] [phone] 12/15/2024 6:45 EST Treatment [facility] [place] [address] [place], [place] [id number] Carlota Jin MD 1 [facility], [facility] 2 [place] [phone] 12/18/2024 6:45 EST Treatment [facility] [place] [address] [place], [place] [id number] Carlota Jin MD 1 [facility], [facility] 2 [place] [phone] 12/20/2024 6:45 EST Treatment [facility] [place] [address] [place], [place] [id number] Carlota Jin MD 1 [facility], [facility] 2 [place] [phone] 12/22/2024 6:45 EST Treatment [facility] [place] [address] [place], [place] [id number] Carlota Jin MD 1 [facility], [facility] 2 [place] [phone] 12/25/2024 6:45 EST Treatment [facility] [place] [address] [place], [place] [id number] Carlota Jin MD 1 [facility], [facility] 2 [place] [phone] 12/27/2024 6:45 EST Treatment [facility] [place] [address] [place], [place] [id number] Carlota Jin MD 1 [facility], [facility] 2 [place] [phone] 12/29/2024 6:45 EST Treatment [facility] [place] [address] [place] [address] Carlota Jin MD 1 [facility], [address] [phone] 01/01/2025 6:45 EDT Treatment [facility] [place] [address] [place], [place] [id number] Carlota Jin MD 1 [facility], [address] [phone] 01/03/2025 6:45 EDT Treatment [facility] [place] [address] [place] [address] Carlota Jin MD 1 [facility], [facility] 2 [place] [phone] 01/05/2025 6:45 EDT Treatment [facility] [place] [address] [place], [place] [id number] Carlota Jin MD 1 [facility], [facility] 2 [place] [phone] 01/08/2025 6:45 EDT Treatment [facility] [place] [address] [place], [place] [address] Carlota Jin MD 1 [facility], [facility] 2 [place] [phone] 01/10/2025 6:45 EDT Treatment [facility] [place] [address] [place], [place] [id number] Carlota Jin MD 1 [facility], [address] [phone] 01/12/2025 6:45 EDT Treatment [facility] [place] [address] [place] [address] Carlota Jin MD 1 [facility], [address] [phone] 01/15/2025 6:45 EDT Treatment [facility] [place] [address] [place], [place] [address] Carlota Jin MD 1 [facility], [facility] 2 [place] [phone] 01/17/2025 6:45 EDT Treatment [facility] [place] [address] [place], [place] [id number] Carlota Jin MD 1 [facility], [facility] 2 [place] [phone] 01/19/2025 6:45 EDT Treatment [facility] [place] [address] [place], [place] [address] Carlota Jin MD 1 [facility], [address] [phone] 01/22/2025 6:45 EDT Treatment [facility] [place] [address] [place] [address] Carlota Jin MD 1 [facility], [address] [phone] 01/24/2025 6:45 EDT Treatment [facility] [place] [address] [place], [place] [id number] Carlota Jin MD 1 [facility], [address] [phone] 01/26/2025 6:45 EDT Treatment [facility] [place] [address] [place] [address] Carlota Jin MD 1 [facility], [address] [phone] 01/29/2025 6:45 EDT Treatment [facility] [place] [address] [place], [place] [id number] Carlota Jin MD [address] [phone] 01/31/2025 6:45 EDT Treatment [facility] [place] [address] [place], [place] [address] Carlota Jin MD 1 [facility], [address] [phone] 02/02/2025 6:45 EDT Treatment [facility] [place] [address] [place], [place] [id number] Carlota Jin MD 1 [facility], [facility] 2 [place] [phone] 02/05/2025 6:45 EDT Treatment [facility] [place] [address] [place], [place] [id number] Carlota Jin MD 1 [facility], [address] [phone] 02/07/2025 6:45 EDT Treatment [facility] [place] [address] [place], [place] [id number] Carlota Jin MD 1 [facility], [facility] 2 [place] [phone] 02/09/2025 6:45 EDT Treatment [facility] [place] [address] [place], [place] [id number] Carlota Jin MD 1 [facility], [facility] 2 [place] [phone] 02/12/2025 6:45 EDT Treatment [facility] [place] [address] [place], [place] [id number] Carlota Jin MD 1 [facility], [facility] 2 [place] [phone] 02/14/2025 6:45 EDT Treatment [facility] [place] [address] [place], [place] [id number] Carlota Jin MD [address] [phone] 02/16/2025 6:45 EDT Treatment [facility] [place] [address] [place], [place] [id number] Carlota Jin MD [address] [place] [phone] 02/19/2025 6:45 EDT Treatment [facility] [place] [address] [place], [place] [id number] Carlota Jin MD [address] [place] [phone] 02/21/2025 6:45 EDT Treatment [facility] [address] [place], [place] [id number] Carlota Jin MD [address] [place] [phone] documented as of this encounter Procedures Procedure Name Priority Date/Time Associated Diagnosis Comments HEMODIALYSIS Routine 01/22/2023 6:51 EDT ESRD (end stage renal disease) ([facility]) documented in this encounter Visit Diagnoses Diagnosis ESRD (end stage renal disease) ([facility])- Primary End stage renal disease [...] oral, EVERY 4 HOURS PRN, Starting on Wed01/22/23 at 1009, Until Wed01/22/23 at 1553, Pain, Routine, DialysisIndications:Hypoalbumin emia,Encounter for immunization,ESRD (end stage renal disease) ([facility]) Given 01/22/2023 10:11 EDT 650 mg epoetin ken (EPOGEN) 20,000 unit/2 mL injection 500 Units 500 Units, intravenous, ONCE IN DIALYSIS, 1 dose, On Wed01/22/23 at 0715, Routine, DialysisIndications:Hypoalbumin emia,Encounter for immunization,ESRD (end stage renal disease) ([facility]) Given 01/22/2023 7:13 EDT 500 Units heparin injection 9,000 Units 9,000 Units, intravenous, ONCE IN DIALYSIS, 1 dose, On Wed01/22/23 at 0715, Routine, Dialysis, Now x1 bolus 4500 units to be given at the beginning of dialysis 1500 units/hour to be given over the course of dialysis (9000 units total). Stop 1 hour prior to end of treatment. To be administered per Policy [id number].Indications:Hypoalbumin emia,Encounter for immunization,ESRD (end stage renal disease) ([facility]) Given 01/22/2023 7:00 EDT 9,000 Units nepro w/ carb steady bolus 237 mL 237 mL (1 Package), oral, ONCE IN DIALYSIS, 1 dose, On Wed01/22/23 at 0715, RoutineIndications:Hypoalbumine bozena,ESRD (end stage renal disease) ([facility]) Given 01/22/2023 7:13 EDT 237 mL documented in this encounter Orders Dialysis Count Last Ordered Date First Orde red Date HEMODIALYSIS 1 01/22/2023 documented in this encounter Care Teams Gas Regulator Repairer Relationship Specialty Start Date End Date Adeola Villegas APRN [address] [place] [address] PCP - General 10/12/16 07/06/23 documented as of this encounter
--- OUTSIDE RECORDS SUMMARY | 2024-12-05 12:28 | XMS_ITS | Encounter Summary ---
Author Organization [facility] Address [address] [place] [address] Care Team Providers Care Wet End Helper Name Role Phone Adeola Villegas MONA Primary Care Provider Encounter Details Date Type Department Care Team (Late st Contact Info) Description 02/05/2023 7:15 EDT Treatment [facility] [address] [place] [id number] Carlota Jin MD 1 [facility], Level 2 [place] [address] ESRD (end stage renal disease) ([facility]) (Primary Dx); Anemia of chronic [...] - - Temperature - - Respiratory Rate 12 02/05/2023 0651 EDT Oxygen Saturation - - Inhaled Oxygen Concentration - - Weight 90.6 kg (199 lb 11.8 oz) 02/05/2023 0651 EDT Height - - Body Mass Index 29.07 01/25/2023 0751 EDT documented in this encounter Miscellaneous Notes * Flowsheet Note - Marcela Cox RN - 02/05/2023 1256 EDT 02/05/23 1135 Post-Hemodialysis Assessment Total Blood Processed (L) 88 Liters Dialyzer Clearance Lightly streaked Treatment UFR (ml:kg:hr) 9.53 ml:kg:hr Critline refill Not done Fluid Removed (L) 3.45 L Post-Dialysis Scale Weight 87.3 kg (192 lb 7.4 oz) Wheelchair Weight 0 kg (0 lb) Prosthesis Weight 0 kg (0 lb) Post-Treatment Weight (kg) 87.3 Treatment Weight Change (kg) 3.3 kg Day Target Weight (kg) 87.6 Post Sitting/Lying BP 126/72 Post Sitting/Lying pulse 64 Post Standing BP 137/74 Post Standing Pulse 66 Temp 36.1 ??C (97 ??F) Temp src Temporal Post access assessment AVF/AFG Hemostasis achieved Yes Note 10 min hold Orientation Alert and Oriented x3 Yes Cooperative Yes Disoriented No Discharge Ambulation Methods Ambulatory without assistance Wrap up items Patient Response to Treatment Removed 3.45L out of original 3.5L UF goal without difficulty. Pt reports cramping during last 5 in of tx, rinseback performed early for cramping. Comments no concerns voiced post tx. d/c stable. documented in this encounter Plan of Treatment Upcoming Encounters Date Type Department Care Team (Late st Contact Info) Description 12/06/2024 6:45 EST Treatment [facility] [address] [place], [place] [address] Carlota Jin MD [address] [phone] 12/08/2024 6:45 EST Treatment [facility] [address] [place] [address] Carlota Jin MD 1 [facility], [facility] 2 [place] [phone] 12/11/2024 6:45 EST Treatment [facility] [place] [address] [place], [place] [id number] Carlota Jin MD 1 [facility] 2 [place] [phone] 12/13/2024 6:45 EST Treatment [facility] [address] [place], [place] [id number] Carlota Jin MD 1 [facility], [facility] 2 [place] [phone] 12/15/2024 6:45 EST Treatment [facility] [address] [place], [place] [id number] Carlota Jin MD 1 [facility], [facility] 2 [place] [phone] 12/18/2024 6:45 EST Treatment [facility] [address] [place] [address] Carlota Jin MD 1 [facility], [facility] 2 [place] [phone] 12/20/2024 6:45 EST Treatment [facility] [address] [place], [place] [id number] Carlota Jin MD 1 [facility], [facility] 2 [place] [phone] 12/22/2024 6:45 EST Treatment [facility] [place] [address] [place], [place] [address] Carlota Jin MD 1 [facility], [facility] 2 [place] [phone] 12/25/2024 6:45 EST Treatment [facility] [place] [address] [place], [place] [id number] Carlota Jin MD 1 [facility], [facility] 2 [place] [phone] 12/27/2024 6:45 EST Treatment [facility] [place] [address] [place], [place] [id number] Carlota Jin MD 1 [facility], [facility] 2 [place] [phone] 12/29/2024 6:45 EST Treatment [facility] [place] [address] [place], [place] [id number] Carlota Jin MD 1 [facility], [facility] 2 [place] [phone] 01/01/2025 6:45 EDT Treatment [facility] [place] [address] [place], [place] [id number] Carlota Jin MD 1 [facility], [facility] 2 [place] [phone] 01/03/2025 6:45 EDT Treatment [facility] [place] [address] [place], [place] [id number] Carlota Jin MD 1 [facility] 2 [place] [phone] 01/05/2025 6:45 EDT Treatment [facility] [place] [address] [place], [place] [address] Carlota Jin MD 1 [facility], [facility] 2 [place] [phone] 01/08/2025 6:45 EDT Treatment [facility] [place] [address] [place], [place] [id number] Carlota Jin MD 1 [facility], [facility] 2 [place] [phone] 01/10/2025 6:45 EDT Treatment [facility] [place] [address] [place], [place] [id number] Carlota Jin MD 1 [facility], [facility] 2 [place] [phone] 01/12/2025 6:45 EDT Treatment [facility] [place] [address] [place], [place] [id number] Carlota Jin MD 1 [facility], [facility] 2 [place] [phone] 01/15/2025 6:45 EDT Treatment [facility] [place] [address] [place], [place] [id number] Carlota Jin MD 1 [facility], [facility] 2 [place] [phone] 01/17/2025 6:45 EDT Treatment [facility] [place] [address] [place], [place] [id number] Carlota Jin MD 1 [facility], [facility] 2 [place] [phone] 01/19/2025 6:45 EDT Treatment [facility] [place] [address] [place], [place] [id number] Carlota Jin MD 1 [facility], [address] [phone] 01/22/2025 6:45 EDT Treatment [facility] [place] [address] [place], [place] [id number] Carlota Jin MD 1 [facility], [address] [phone] 01/24/2025 6:45 EDT Treatment [facility] [place] [address] [place], [place] [id number] Carlota Jin MD 1 [facility], [facility] 2 [place] [phone] 01/26/2025 6:45 EDT Treatment [facility] [place] [address] [place], [place] [id number] Carlota Jin MD 1 [facility], [facility] 2 [place] [phone] 01/29/2025 6:45 EDT Treatment [facility] [place] [address] [place], [place] [id number] Carlota Jin MD 1 [facility], [facility] 2 [place] [phone] 01/31/2025 6:45 EDT Treatment [facility] [place] [address] [place], [place] [id number] Carlota Jin MD 1 [facility], [facility] 2 [place] [phone] 02/02/2025 6:45 EDT Treatment [facility] [place] [address] [place] [address] Carlota Jin MD 1 [facility], [facility] 2 [place] [phone] 02/05/2025 6:45 EDT Treatment [facility] [place] [address] [place] [address] Carlota Jin MD 1 [facility], [facility] 2 [place] [phone] 02/07/2025 6:45 EDT Treatment [facility] [place] [address] [place] [address] Carlota Jin MD 1 [facility], [facility] 2 [place] [phone] 02/09/2025 6:45 EDT Treatment [facility] [place] [address] [place], [place] [id number] Carlota Jin MD 1 [facility], [facility] 2 [place] [phone] 02/12/2025 6:45 EDT Treatment [facility] [place] [address] [place], [place] [id number] Carlota Jin MD [address] [phone] 02/14/2025 6:45 EDT Treatment [facility] [place] [address] [place], [place] [id number] Carlota Jin MD [address] [phone] 02/16/2025 6:45 EDT Treatment [facility] [place] [address] [place], [place] [id number] Carlota Jin MD [address] [phone] 02/19/2025 6:45 EDT Treatment [facility] [place] [address] [place], [place] [id number] Carlota Jin MD [address] [phone] 02/21/2025 6:45 EDT Treatment [facility] [address] [place], [place] [id number] Carlota Jin MD [address] [phone] documented as of this encounter Procedures Procedure Name Priority Date/Time Associated Diagnosis Comments HEMODIALYSIS Routine 02/05/2023 7:01 EDT ESRD (end stage renal disease) ([facility]) documented in this encounter Visit Diagnoses Diagnosis ESRD (end stage renal disease) ([facility])- Primary End stage renal disease Anemia of chronic renal failure, unspecified CKD stage Abnormal albumin Other nonspecific findings on examination of blood documented in this encounter Administered Medications Inactive Administered Medications - up to 3 most recent administrations Medication Order MAR Action Action Date Dose Rate Site acetaminophen (TYLENOL) tablet 650 mg 650 mg, oral, EVERY 4 HOURS PRN, Starting on Wed02/05/23 at 0701, Until Wed02/05/23 at 1456, Pain, Routine, DialysisIndications:ESRD (end stage renal disease) ([facility]) Given 02/05/2023 7:23 EDT 650 mg epoetin ken (EPOGEN) 20,000 unit/2 mL injection 500 Units 500 Units, intravenous, ONCE IN DIALYSIS, 1 dose, On Wed02/05/23 at 0730, Routine, DialysisIndications:ESRD (end stage renal disease) ([facility]),Anemia of chronic renal failure, unspecified CKD stage Given 02/05/2023 7:23 EDT 500 Units heparin injection 9,000 Units 9,000 Units, intravenous, ONCE IN DIALYSIS, 1 dose, On Wed02/05/23 at 0730, Routine, Dialysis, Now x1 bolus 4500 units to be given at the beginning of dialysis 1500 units/hour to be given over the course of dialysis (9000 units total). Stop 1 hour prior to end of treatment. To be administered per Policy [id number].Indications:ESRD (end stage renal disease) ([facility]) Given 02/05/2023 7:11 EDT 9,000 Units nepro w/ carb steady bolus 237 mL 237 mL (1 Package), oral, ONCE IN DIALYSIS, 1 dose, On Wed02/05/23 at 0730, RoutineIndications:ESRD (end stage renal disease) ([facility]),Abnormal albumin Given 02/05/2023 7:23 EDT 237 mL documented in this encounter Orders Dialysis Count Last Ordered Date First Orde red Date HEMODIALYSIS 1 02/05/2023 documented in this encounter Care Teams Wet End Helper Relationship Specialty Start Date End Date Adeola Villegas APRN [address] [place] [address] PCP - General 10/12/16 07/06/23 documented as of this encounter
--- OUTSIDE RECORDS SUMMARY | 2024-12-05 12:28 | XMS_ITS | Encounter Summary ---
Author Organization [facility] Address [address] [place] [address] Care Team Providers Care Gill Box Fixer Name Role Phone Adeola Villegas APRN Primary Care Provider [phone] Encounter Details Date Type Department Care Team (Late st Contact Info) Description 01/27/2023 Documentation Visit [facility] [address] [place] [address] Alexa Estrada, NIKKIE [address] [place] [address] Social History Tobacco Use Types Packs/Day Years [...] Progress Notes * Alexa Estrada LICSW - 01/27/2023 1323 EDT [employer]'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 SW attempted to engage pt about his housing situation, pt was not responsive and fell asleep multiple times. SW was able to complete a depression screening, pt was negative for depression however difficult to assess due to lack ofengagement as pt was so sleepy. SW will continue to remain available. Current Living Situation: Lives with family and Lives with friends Lives with family Pt lives with his , Hoda, in their apartment in [place]. 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, [facility] 2 [place] [phone] 12/08/2024 6:45 EST Treatment [facility] [address] [place], [place] [id number] Carlota Jin MD [address] [facility], [address] [phone] 12/11/2024 6:45 EST Treatment [facility] [address] [place], [place] [id number] Carlota Jin MD [address] [facility], [address] [phone] 12/13/2024 6:45 EST Treatment [facility] [address] [place], [place] [id number] Carlota Jin MD [address] [facility], [facility] 2 [place] [phone] 12/15/2024 6:45 EST Treatment [facility] [address] [place], [place] [id number] Carlota Jin MD [address] [phone] 12/18/2024 6:45 EST Treatment [facility] [place] [address] [place], [place] [id number] Carlota Jin MD [address] [facility], [facility] 2 [place] [phone] 12/20/2024 6:45 EST Treatment [facility] [place] [address] [place], [place] [id number] Carlota Jin MD [address] [facility], [facility] 2 [place] [phone] 12/22/2024 6:45 EST Treatment [facility] [place] [address] [place], [place] [id number] Carlota Jin MD [address] [facility], [facility] 2 [place] [phone] 12/25/2024 6:45 EST Treatment [facility] [place] [address] [place], [place] [id number] Carlota Jin MD [address] [facility], [facility] 2 [place] [phone] 12/27/2024 6:45 EST Treatment [facility] [place] [address] [place], [place] [id number] Carlota Jin MD [address] [facility], [facility] 2 [place] [phone] 12/29/2024 6:45 EST Treatment [facility] [place] [address] [place], [place] [id number] Carl[facility] MD 1 [facility] 2 [place] [phone] 01/01/2025 6:45 EDT Treatment [facility] [place] [address] [place], [place] [address] Carlota Jin MD 1 [facility] 2 [place] [phone] 01/03/2025 6:45 EDT Treatment [facility] [place] [address] [place], [place] [id number] Carlota Jin MD [address] [facility], [facility] 2 [place] [phone] 01/05/2025 6:45 EDT Treatment [facility] [place] [address] [place] [address] Carlota Jin MD [address] [facility], [facility] 2 [place] [phone] 01/08/2025 6:45 EDT Treatment [facility] [place] [address] [place] [address] Carlota Jin MD [address] [facility], [facility] 2 [place] [phone] 01/10/2025 6:45 EDT Treatment [facility] [place] [address] [place], [place] [id number] Carlota Jin MD [address] [facility], [facility] 2 [place] [phone] 01/12/2025 6:45 EDT Treatment [facility] [place] [address] [place], [place] [id number] Carlota Jin MD [address] [facility], [facility] 2 [place] [phone] 01/15/2025 6:45 EDT Treatment [facility] [place] [address] [place], [place] [id number] Carlota Jin MD [address] [facility], [facility] 2 [place] [phone] 01/17/2025 6:45 EDT Treatment [facility] [place] [address] [place] [address] Carlota Jin MD 1 [facility], [address] [phone] 01/19/2025 6:45 EDT Treatment [facility] [place] [address] [place], [place] [id number] Carlota Jin MD [address] [facility], [facility] 2 [place] [phone] 01/22/2025 6:45 EDT Treatment [facility] [place] [address] [place], [place] [id number] Carlota Jin MD [address] [facility], [facility] 2 [place] [phone] 01/24/2025 6:45 EDT Treatment [facility] [place] [address] [place] [address] Carl[address] Jin MD [address] [facility], [facility] 2 [place] [phone] 01/26/2025 6:45 EDT Treatment [facility] [place] [address] [place] [address] Carlota Jin MD 1 [facility] 2 [place] [phone] 01/29/2025 6:45 EDT Treatment [facility] [place] [address] [place] [address] Carlota Jin MD [address] [facility], [address] [phone] 01/31/2025 6:45 EDT Treatment [facility] [place] [address] [place] [address] Carlota Jin MD [address] [facility], [facility] 2 [place] [phone] 02/02/2025 6:45 EDT Treatment [facility] [place] [address] [place] [address] Carlota Jin MD [address] [facility], [facility] 2 [place] [phone] 02/05/2025 6:45 EDT Treatment [facility] [place] [address] [place], [place] [id number] Carlota Jin MD 1 [facility], [facility] 2 [place] [phone] 02/07/2025 6:45 EDT Treatment [facility] [place] [address] [place], [place] [address] Carlota Jin MD [address] [facility], [facility] 2 [place] [phone] 02/09/2025 6:45 EDT Treatment [facility] [place] [address] [place], [place] [id number] Carlota Jin MD [address] [place] [address], [facility] [address] [place] [phone] 02/12/2025 6:45 EDT Treatment [facility] [place] [address] [place], [place] [address] Carlota Jin MD 1 [facility], [facility] 2 [place] [phone] 02/14/2025 6:45 EDT Treatment [facility] [place] [address] [place] [address] Carlota Jin MD [address] [place] [address], [facility] 2 [place] [phone] 02/16/2025 6:45 EDT Treatment [facility] [place] [address] [place], [place] [phone] Carlota Jin MD 1 [facility], [facility] 2 [place] [phone] 02/19/2025 6:45 EDT Treatment [facility] [address] [place], [place] [address] Carlota Jin MD 1 [facility], [facility] 2 [place] [phone] 02/21/2025 6:45 EDT Treatment [facility] [address] [place], [place] [id number] Carlota Jin MD [address] [facility], [facility] 2 [place] [phone] documented as of this encounter Visit Diagnoses Not on filedocumented in this encounter Care Teams Gill Box Fixer Relationship Specialty Start Date End Date Adeola Villegas APRN [address] [place], [place] [address] PCP - General 10/12/16 07/06/23 documented as of this encounter
--- OUTSIDE RECORDS SUMMARY | 2024-12-05 12:28 | XMS_ITS | Encounter Summary ---
Author Organization [facility] Address [address] [place] [address] Care Team Providers Care Biodiesel Product Manager Name Role Phone Adeola Villegas MONA Primary Care Provider Encounter Details Date Type Department Care Team (Late st Contact Info) Description 02/03/2023 Documentation Visit [facility] [address] [place], [place] [id number] Marcela Cox, RN Social History Tobacco Use [...] Progress Notes * Marcela Cox, VIDYA - 02/03/2023 0845 EDT 02/03/23 8:46 [facility] MEDICATION RECONCILIATION Medication review of home medications (prescriptions, zowz-evk-hfmtqiw, herbals, vitamin/mineral/dietary (nutritional) supplements, medical marijuana, and [...] ??? insulin detemir (LEVEMIR FLEXPEN SUBQ) ??? magnesium oxide (MAG-OX) 400 mg (241.3 [...] EST Treatment [facility] [address] [place], [place] [phone] Carlota Jin MD [address] [place] [phone] 12/08/2024 6:45 EST Treatment [facility] [address] [place], [place] [phone] Carlota Jin MD [address] [place] [address] 2 [place] [phone] 12/11/2024 6:45 EST Treatment [facility] [address] [place], [place] [phone] Carlota Jin MD [address] [place] [address], [facility] 2 [place] [phone] 12/13/2024 6:45 EST Treatment [facility] [place] [address] [place], [place] [phone] Carlota Jin MD 1 [facility], [facility] 2 [place] [phone] 12/15/2024 6:45 EST Treatment [facility] [place] [address] [place], [place] [phone] Carlota Jin MD 1 [facility], [facility] 2 [place] [phone] 12/18/2024 6:45 EST Treatment [facility] [place] [address] [place], [place] [phone] Carlota Jin MD 1 [facility], [facility] 2 [place] [phone] 12/20/2024 6:45 EST Treatment [facility] - [place] [address] [place], [place] [phone] Carlota Jin MD 1 [facility], [facility] 2 [place] [phone] 12/22/2024 6:45 EST Treatment [facility] - [place] [address] [place], [place] [phone] Carlota Jin MD 1 [facility], [facility] 2 [place] [phone] 12/25/2024 6:45 EST Treatment [facility] [place] [address] [place], [place] [phone] Carlota Jin MD 1 [facility], [facility] 2 [place] [phone] 12/27/2024 6:45 EST Treatment [facility] [place] [address] [place], [place] [phone] Carlota Jin MD 1 [facility], [facility] 2 [place] [phone] 12/29/2024 6:45 EST Treatment [facility] [place] [address] [place], [place] [phone] Carlota Jin MD 1 [facility], [address] [phone] 01/01/2025 6:45 EDT Treatment [facility] [place] [address] [place], [place] [phone] Carlota Jin MD 1 [facility], [facility] 2 [place] [phone] 01/03/2025 6:45 EDT Treatment [facility] [address] [place], [place] [phone] Carlota Jin MD 1 [facility], [facility] 2 [place] [phone] 01/05/2025 6:45 EDT Treatment [facility] [place] [address] [place], [place] [phone] Carlota Jin MD 1 [facility], [facility] 2 [place] [phone] 01/08/2025 6:45 EDT Treatment [facility] - [place] [address] [place], [place] [phone] Carlota Jin MD 1 [facility], [facility] 2 [place] [phone] 01/10/2025 6:45 EDT Treatment [facility] [place] [address] [place], [place] [phone] Carlota Jin MD 1 [facility], [facility] 2 [place] [phone] 01/12/2025 6:45 EDT Treatment [facility] [place] [address] [place], [place] [phone] Carlota Jin MD 1 [facility], [address] [phone] 01/15/2025 6:45 EDT Treatment [facility] [place] [address] [place], [place] [phone] Carlota Jin MD 1 [facility], [facility] 2 [place] [phone] 01/17/2025 6:45 EDT Treatment [facility] [place] [address] [place], [place] [address] Carlota Jin MD 1 [facility], [facility] 2 [place] [phone] 01/19/2025 6:45 EDT Treatment [facility] [place] [address] [place], [place] [phone] Carlota Jin MD 1 [facility], [facility] 2 [place] [phone] 01/22/2025 6:45 EDT Treatment [facility] [place] [address] [place] [address] Carlota Jin MD 1 [facility], [facility] 2 [place] [phone] 01/24/2025 6:45 EDT Treatment [facility] - [place] [address] [place], [place] [phone] Carlota Jin MD 1 [facility], [address] [phone] 01/26/2025 6:45 EDT Treatment [facility] [place] [address] [place], [place] [address] Carlota Jin MD 1 [facility], [address] [phone] 01/29/2025 6:45 EDT Treatment [facility] - [place] [address] [place], [place] [phone] Carlota Jin MD 1 [facility], [address] [phone] 01/31/2025 6:45 EDT Treatment [facility] [place] [address] [place], [place] [phone] Carlota Jin MD 1 [facility], [facility] 2 [place] [phone] 02/02/2025 6:45 EDT Treatment [facility] [place] [address] [place], [place] [phone] Carlota Jin MD 1 [facility], [facility] 2 [place] [phone] 02/05/2025 6:45 EDT Treatment [facility] [place] [address] [place], [place] [phone] Carlota Jin MD 1 [facility], [facility] 2 [place] [phone] 02/07/2025 6:45 EDT Treatment [facility] [place] [address] [place], [place] [address] [phone] Carlota Jin MD 1 [facility], [facility] 2 [place] [phone] 02/09/2025 6:45 EDT Treatment [facility] [place] [address] [place] [address] Carlota Jin MD 1 [facility], [facility] 2 [place] [phone] 02/12/2025 6:45 EDT Treatment [facility] [place] [address] [place], [place] [phone] Carlota Jin MD 1 [facility], [facility] 2 [place] [phone] 02/14/2025 6:45 EDT Treatment [facility] [place] [address] [place], [place] [phone] Carlota Jin MD [address] [place] [address], [address] [phone] 02/16/2025 6:45 EDT Treatment [facility] [address] [place], [place] [phone] Carlota Jin MD [address] [place] [address], [address] [phone] 02/19/2025 6:45 EDT Treatment [facility] [address] [place], [place] [phone] Carlota Jin MD [address] [place] [address], [address] [phone] 02/21/2025 6:45 EDT Treatment [facility] [address] [place], [place] [phone] Carlota Jin MD [address] [place] [address], [facility] 2 [place] [phone] documented as of this encounter Visit Diagnoses Not on filedocumented in this encounter Discontinued Medications Medication Sig Discontinue Reason Start Date End Da te azithromycin (ZITHROMAX) 250 mg tablet TAKE TWO TABLETS BY MOUTH AT ONCE ON THE FIRST DAY THEN TAKE ONE DAILY THEREAFTER Therapy completed 12/19/2022 02/03/2023 hydroCHLOROthiazide (HYDRODIURIL) 25 mg tablet Therapy completed 12/10/2022 02/03/2023 documented as of this encounter Historical Medications * This list may reflect changes made after this encounter. magnesium oxide (MAG-OX) 400 mg (241.3 mg magnesium) tablet Take 1 Tablet by mouth daily. 08/06/2023 added in this encounter Care Teams Biodiesel Product Manager Relationship Specialty Start Date End Date Adeola Villegas APRN [address] [place] [address] PCP - General 10/12/16 07/06/23 documented as of this encounter
--- OUTSIDE RECORDS SUMMARY | 2024-12-05 12:28 | XMS_ITS | Encounter Summary ---
Author Organization [facility] Address [address] [place] [address] Care Team Providers Care Information Resource Consultant Name Role Phone Adeola Villegas MONA Primary Care Provider [phone] Encounter Details Date Type Department Care Team (Late st Contact Info) Description 01/29/2023 7:15 EDT Treatment [facility] [address] [place], [place] [phone] Carlota Jin MD 1 [facility], Level 2 [place] [phone] ESRD (end stage renal disease) ([facility]) (Primary Dx); Anemia of chronic renal failure, unspecified CKD stage; Hypoalbuminemia; Encounter for immunization; Abnormal albumin Social History Tobacco Use Types [...] - Temperature - - Respiratory Rate 16 01/29/2023 0705 EDT Oxygen Saturation - - Inhaled Oxygen Concentration - - Weight 92.5 kg (203 lb 14.8 oz) 01/29/2023 0705 EDT Height - - Body Mass Index 29.68 01/25/2023 0751 EDT documented in this encounter Miscellaneous Notes * Flowsheet Note - Melissa Crespo RN - 01/29/2023 1413 EDT 01/29/23 1119 Post-Hemodialysis Assessment Total Blood Processed (L) 90.13 Liters Dialyzer Clearance Lightly streaked Treatment UFR (ml:kg:hr) 11.16 ml:kg:hr Fluid Removed (L) 4 L Post-Dialysis Scale Weight 88.5 kg (195 lb 1.7 oz) Wheelchair Weight 0 kg (0 lb) Prosthesis Weight 0 kg (0 lb) Post-Treatment Weight (kg) 88.5 Treatment Weight Change (kg) 4 kg Day Target Weight (kg) 89 Post Sitting/Lying BP 146/78 Post Sitting/Lying pulse 58 Post Standing BP 137/73 Post Standing Pulse 64 Temp 36.6 ??C [...] 12/06/2024 6:45 EST Treatment [facility] [address] [place] [phone] Carlota Jin MD [address] [place] [address], [facility] 2 [place] [phone] 12/08/2024 6:45 EST Treatment [facility] [address] [place] [phone] Carlota Jin MD [address] [place] [address], [facility] 2 [place] [phone] 12/11/2024 6:45 EST Treatment [facility] [place] [address] [place], [place] [phone] Carlota Jin MD 1 [facility], [facility] 2 [place] [phone] 12/13/2024 6:45 EST Treatment [facility] [place] [address] [place], [place] [phone] Carlota Jin MD 1 [facility], [facility] 2 [place] [phone] 12/15/2024 6:45 EST Treatment [facility] [place] [address] [place] [address] Carlota Jin MD [address] [place] [address], [facility] 2 [place] [phone] 12/18/2024 6:45 EST Treatment [facility] [place] [address] [place], [place] [phone] Carlota Jin MD 1 [facility], [facility] 2 [place] [phone] 12/20/2024 6:45 EST Treatment [facility] [place] [address] [place], [place] [phone] Carlota Jin MD 1 [facility], [facility] 2 [place] [phone] 12/22/2024 6:45 EST Treatment [facility] [place] [address] [place], [place] [phone] Carlota Jin MD 1 [facility] 2 [place] [phone] 12/25/2024 6:45 EST Treatment [facility] [place] [address] [place], [place] [phone] Carlota Jin MD [facility] 2 [place] [phone] 12/27/2024 6:45 EST Treatment [facility] [place] [address] [place] [address] Carlota Jin MD 1 [facility], [facility] 2 [place] [phone] 12/29/2024 6:45 EST Treatment [facility] [place] [address] [place] [address] Carlota Jin MD 1 [facility], [facility] 2 [place] [phone] 01/01/2025 6:45 EDT Treatment [facility] [place] [address] [place] [address] Carl[address] Jin MD 1 [facility], [facility] 2 [place] [phone] 01/03/2025 6:45 EDT Treatment [facility] [place] [address] [place], [place] [phone] Carlota Jin MD 1 [facility], [facility] 2 [place] [phone] 01/05/2025 6:45 EDT Treatment [facility] [place] [address] [place], [place] [phone] Carlota Jin MD 1 [facility], [facility] 2 [place] [phone] 01/08/2025 6:45 EDT Treatment [facility] [place] [address] [place], [place] [phone] Carlota Jin MD 1 [facility], [facility] 2 [place] [phone] 01/10/2025 6:45 EDT Treatment [facility] [place] [address] [place] [address] Carlota Jin MD 1 [facility], [address] [phone] 01/12/2025 6:45 EDT Treatment [facility] [place] [address] [place], [place] [id number] Carlota Jin MD 1 [facility], [facility] 2 [place] [phone] 01/15/2025 6:45 EDT Treatment [facility] [place] [address] [place], [place] [phone] Carlota Jin MD 1 [facility], [facility] 2 [place] [phone] 01/17/2025 6:45 EDT Treatment [facility] [place] [address] [place], [place] [phone] Carlota Jin MD 1 [facility], [facility] 2 [place] [phone] 01/19/2025 6:45 EDT Treatment [facility] [place] [address] [place] [address] Carlota Jin MD 1 [facility] 2 [place] [phone] 01/22/2025 6:45 EDT Treatment [facility] [place] [address] [place] [address] Carlota Jin MD 1 [facility], [facility] 2 [place] [phone] 01/24/2025 6:45 EDT Treatment [facility] [place] [address] [place] [address] Carlota Jin MD 1 [facility], [facility] 2 [place] [phone] 01/26/2025 6:45 EDT Treatment [facility] [place] [address] [place] [address] Carlota Jin MD 1 [facility], [facility] 2 [place] [phone] 01/29/2025 6:45 EDT Treatment [facility] [place] [address] [place], [place] [phone] Carlota Jin MD 1 [facility], [facility] 2 [place] [phone] 01/31/2025 6:45 EDT Treatment [facility] [place] [address] [place], [place] [address] Carlota Jin MD 1 [facility], [facility] 2 [place] [phone] 02/02/2025 6:45 EDT Treatment [facility] [place] [address] [place] [address] Carlota Jin MD 1 [facility], [facility] 2 [place] [phone] 02/05/2025 6:45 EDT Treatment [facility] [place] [address] [place], [place] [address] Carlota Jin MD 1 [facility], [facility] 2 [place] [phone] 02/07/2025 6:45 EDT Treatment [facility] [place] [address] [place], [place] [address] Carlota Jin MD 1 [facility], [facility] 2 [place] [phone] 02/09/2025 6:45 EDT Treatment [facility] [place] [address] [place], [place] [phone] Carlota Jin MD 1 [facility], [facility] 2 [place] [phone] 02/12/2025 6:45 EDT Treatment [facility] [place] [address] [place], [place] [phone] Carlota Jin MD 1 [facility], [address] [phone] 02/14/2025 6:45 EDT Treatment [facility] [place] [address] [place], [place] [phone] Carlota Jin MD [address] [phone] 02/16/2025 6:45 EDT Treatment [facility] [place] [address] [place], [place] [phone] Carlota Jin MD 1 [facility], [address] [phone] 02/19/2025 6:45 EDT Treatment [facility] [place] [address] [place], [place] [phone] Carlota Jin MD [address] [phone] 02/21/2025 6:45 EDT Treatment [facility] [place] [address] [place], [place] [phone] Carlota Jin MD [address] [phone] documented as of this encounter Procedures Procedure Name Priority Date/Time Associated Diagnosis Comments HEMODIALYSIS Routine 01/29/2023 7:05 EDT ESRD (end stage renal disease) ([facility]) documented in this encounter Visit Diagnoses Diagnosis ESRD (end stage renal disease) ([facility])- Primary End stage renal disease Anemia of chronic renal failure, unspecified CKD stage Hypoalbuminemia Other disorders of plasma protein metabolism Encounter for immunization Need for other specified prophylactic vaccination against single bacterial disease Abnormal albumin Other nonspecific findings on examination of blood documented in this encounter Administered Medications Inactive Administered Medications - up to 3 most recent administrations Medication Order MAR Action Action Date Dose Rate Site epoetin ken (EPOGEN) 20,000 unit/2 mL injection 500 Units 500 Units, intravenous, ONCE IN DIALYSIS, 1 dose, On Wed01/29/23 at 0730, Routine, DialysisIndications:ESRD (end stage renal disease) ([facility]),Anemia of chronic renal failure, unspecified CKD stage Given 01/29/2023 7:36 EDT 500 Units heparin injection 9,000 Units 9,000 Units, intravenous, ONCE IN DIALYSIS, 1 dose, On Wed01/29/23 at 0730, Routine, Dialysis, Now x1 bolus 4500 units to be given at the beginning of dialysis 1500 units/hour to be given over the course of dialysis (9000 units total). Stop 1 hour prior to end of treatment. To be administered per Policy [id number].Indications:ESRD (end stage renal disease) ([facility]) Given 01/29/2023 7:15 EDT 9,000 Units iron sucrose (VENOFER) injection 200 mg 200 mg, intravenous, ONCE IN DIALYSIS, 1 dose, On Wed01/29/23 at 0730, Routine, DialysisIndications:Hypoalbumine bozena,Encounter for immunization,ESRD (end stage renal disease) ([facility]) Given 01/29/2023 7:19 EDT 200 mg nepro w/ carb steady bolus 237 mL 237 mL (1 Package), oral, ONCE IN DIALYSIS, 1 dose, On Wed01/29/23 at 0730, RoutineIndications:ESRD (end stage renal disease) ([facility]),Abnormal albumin Given 01/29/2023 7:19 EDT 237 mL documented in this encounter Orders Dialysis Count Last Ordered Date First Orde red Date HEMODIALYSIS 1 01/29/2023 documented in this encounter Care Teams Information Resource Consultant Relationship Specialty Start Date End Date Adeola Villegas APRN [address] [place] [address] PCP - General 10/12/16 07/06/23 documented as of this encounter
--- OUTSIDE RECORDS SUMMARY | 2024-12-05 12:28 | XMS_ITS | Encounter Summary ---
Author Organization [facility] Address [address] [place] [address] Care Team Providers Care Student Truck Driver Name Role Phone Adeola Villegas MONA Primary Care Provider [phone] Encounter Details Date Type Department Care Team (Late st Contact Info) Description 02/03/2023 7:15 EDT Treatment [facility] [address] [place] [id number] Carlota Jin MD 1 [facility], Level 2 [place] [address] ESRD (end stage renal disease) ([facility]) (Primary Dx); Abnormal albumin Social History [...] - Temperature - - Respiratory Rate 16 02/03/2023 0703 EDT Oxygen Saturation - - Inhaled Oxygen Concentration - - Weight 92.3 kg (203 lb 7.8 oz) 02/03/2023 0703 E DT Height - - Body Mass Index 29.62 01/25/2023 0751 EDT documented in this encounter Miscellaneous Notes * Flowsheet Note - Marcela Cox RN - 02/03/2023 1217 EDT 02/03/23 1118 Post-Hemodialysis Assessment Total Blood Processed (L) 89.86 Liters Dialyzer Clearance Lightly streaked Treatment UFR (ml:kg:hr) 11.57 ml:kg:hr Critline refill Not done Fluid Removed (L) 4.3 L Post-Dialysis Scale Weight 88.2 kg (194 lb 7.1 oz) Wheelchair Weight 0 kg (0 lb) Prosthesis Weight 0 kg (0 lb) Post-Treatment Weight (kg) 88.2 Treatment Weight Change (kg) 4.1 kg Day Target Weight (kg) 88.3 Post Sitting/Lying BP 114/64 Post Sitting/Lying pulse 62 Post Standing BP 130/65 Post Standing Pulse 63 Temp 36.3 ??C (97.3 ??F) Temp src Temporal Post access assessment AVF/AFG Hemostasis achieved Yes Note 10 min hold Orientation Alert and Oriented x3 Yes Cooperative Yes Disoriented No Discharge Ambulation Methods Ambulatory without assistance Wrap up items Patient Response to Treatment Tolerated tx well. Removed 4.3L out of original 4.5L UF goal. Unable to remove full goal as pt reports cramping during last 10 min of tx, UF off for last 10 min. Comments No issues during tx, no concerns voiced post tx. documented in this encounter Plan of Treatment Upcoming Encounters Date Type Department Care Team (Late st Contact Info) Description 12/06/2024 6:45 EST Treatment [facility] [address] [place], [place] [address] Carlota Jin MD [address] [place] [phone] 12/08/2024 6:45 EST Treatment [facility] [address] [place] [id number] Carlota Jin MD [address] [place] [address], [place] [phone] 12/11/2024 6:45 EST Treatment [facility] [address] [place], [place] [id number] Carlota Jin MD 1 [facility], [facility] 2 [place] [phone] 12/13/2024 6:45 EST Treatment [facility] [address] [place], [place] [id number] Carlota Jin MD 1 [facility], [facility] 2 [place] [phone] 12/15/2024 6:45 EST Treatment [facility] [address] [place], [place] [id number] Carlota Jin MD 1 [facility], [facility] 2 [place] [phone] 12/18/2024 6:45 EST Treatment [facility] [address] [place], [place] [id number] Carlota Jin MD 1 [facility], [facility] 2 [place] [phone] 12/20/2024 6:45 EST Treatment [facility] [address] [place], [place] [id number] Carlota Jin MD 1 [facility], [facility] 2 [place] [phone] 12/22/2024 6:45 EST Treatment [facility] [address] [place], [place] [address] Carlota Jin MD 1 [facility], [facility] 2 [place] [phone] 12/25/2024 6:45 EST Treatment [facility] [address] [place], [place] [id number] Carlota Jin MD 1 [facility], [facility] 2 [place] [phone] 12/27/2024 6:45 EST Treatment [facility] [address] [place], [place] [id number] Carlota Jin MD 1 [facility], [facility] 2 [place] [phone] 12/29/2024 6:45 EST Treatment [facility] [address] [place], [place] [id number] Carlota Jin MD 1 [facility], [address] [phone] 01/01/2025 6:45 EDT Treatment [facility] [address] [place], [place] [id number] Carlota Jin MD 1 [facility], [address] [phone] 01/03/2025 6:45 EDT Treatment [facility] [address] [place], [place] [id number] Carlota Jin MD 1 [facility], [facility] 2 [place] [phone] 01/05/2025 6:45 EDT Treatment [facility] [address] [place], [place] [id number] Carlota Jin MD 1 [facility], [facility] 2 [place] [phone] 01/08/2025 6:45 EDT Treatment [facility] [address] [place], [place] [id number] Carlota Jin MD 1 [facility], [facility] 2 [place] [phone] 01/10/2025 6:45 EDT Treatment [facility] [address] [place], [place] [id number] Carlota Jin MD 1 [facility], [facility] 2 [place] [phone] 01/12/2025 6:45 EDT Treatment [facility] [address] [place] [address] Carlota Jin MD 1 [facility], [facility] 2 [place] [phone] 01/15/2025 6:45 EDT Treatment [facility] [address] [place], [place] [id number] Carlota Jin MD 1 [facility], [facility] 2 [place] [phone] 01/17/2025 6:45 EDT Treatment [facility] [address] [place], [place] [id number] Carlota Jin MD 1 [facility], [facility] 2 [place] [phone] 01/19/2025 6:45 EDT Treatment [facility] [address] [place], [place] [id number] Carlota Jin MD [address] [place] [address], [address] [phone] 01/22/2025 6:45 EDT Treatment [facility] [address] [place], [place] [id number] Carlota Jin MD [address] [place] [address], [address] [phone] 01/24/2025 6:45 EDT Treatment [facility] [address] [place], [place] [id number] Carlota Jin MD 1 [facility], [facility] 2 [place] [phone] 01/26/2025 6:45 EDT Treatment [facility] [address] [place], [place] [id number] Carlota Jin MD 1 [facility], [facility] 2 [place] [phone] 01/29/2025 6:45 EDT Treatment [facility] [address] [place], [place] [id number] Carlota Jin MD 1 [facility], [facility] 2 [place] [phone] 01/31/2025 6:45 EDT Treatment [facility] [address] [place], [place] [address] Carlota Jin MD 1 [facility], [facility] 2 [place] [phone] 02/02/2025 6:45 EDT Treatment [facility] [address] [place] [address] Carlota Jin MD 1 [facility], [facility] 2 [place] [phone] 02/05/2025 6:45 EDT Treatment [facility] [address] [place], [place] [address] [phone] Carlota Jin MD 1 [facility], [facility] 2 [place] [phone] 02/07/2025 6:45 EDT Treatment [facility] [address] [place] [address] Carlota Jin MD 1 [facility], [facility] 2 [place] [phone] 02/09/2025 6:45 EDT Treatment [facility] [address] [place], [place] [id number] Carlota Jin MD 1 [facility], [facility] 2 [place] [phone] 02/12/2025 6:45 EDT Treatment [facility] [address] [place], [place] [id number] Carlota Jin MD [address] [phone] 02/14/2025 6:45 EDT Treatment [facility] [address] [place], [place] [id number] Carlota Jin MD [address] [phone] 02/16/2025 6:45 EDT Treatment [facility] [address] [place], [place] [id number] Carlota Jin MD [address] [phone] 02/19/2025 6:45 EDT Treatment [facility] [address] [place], [place] [id number] Carlota Jin MD 1 [facility], [address] [phone] 02/21/2025 6:45 EDT Treatment [facility] [address] [place], [place] [id number] Carlota Jin MD [address] [phone] documented as of this encounter Procedures Procedure Name Priority Date/Time Associated Diagnosis Comments COMPLETE BLOOD COUNT Routine 02/03/2023 7:09 EDT ESRD (end stage renal disease) ([facility]) HEMODIALYSIS Routine 02/03/2023 7:03 EDT ESRD (end stage renal disease) ([facility]) documented in this encounter Results * (ABNORMAL) COMPLETE BLOOD COUNT (02/03/2023 7:09 EDT) WBC 9.42 4.00 - 10.40 K/cmm 02/03/2023 22:02 [facility] RBC 3.37(L) 4.36 - 5.78 M/cmm 02/03/2023 22:02 [facility] Hemoglobin 10.7(L) 13.8 - 17.3 gm/dL 02/03/2023 22:02 [facility] HCT 32.8(L) 39.5 - 50.2 % 02/03/2023 22:02 [facility] MCV 97(H) 81 - 95 fl 02/03/2023 22:02 [facility] MCH 31.8 27.6 - 33.0 pg 02/03/2023 22:02 [facility] MCHC 32.6(L) 32.8 - 36.4 gm/dL 02/03/2023 22:02 [facility] RDW-CV 13.2 <14.2 % 02/03/2023 22:02 [facility] RDW-SD 47.0(H) <46.0 fl 02/03/2023 22:02 [facility] PLT 267 141 - 377 K/cmm 02/03/2023 22:02 [facility] MPV 11.9 9.5 - 12.7 fl 02/03/2023 22:02 [facility] Blood VENOUS BLOOD / Unknown Venipuncture / Unknown 02/03/2023 7:09 EDT 02/03/2023 7:10 EDT us Carlota Jin MD HEMATOLOGY & PF4 ORDERABL ES Final Result [facility] [address] [place] [address] documented in this encounter Visit Diagnoses Diagnosis ESRD (end stage renal disease) ([facility])- Primary End stage renal disease Abnormal albumin Other nonspecific findings on examination of blood documented in this encounter Administered Medications Inactive Administered Medications - up to 3 most recent administrations Medication Order MAR Action Action Date Dose Rate Site heparin injection 9,000 Units 9,000 Units, intravenous, ONCE IN DIALYSIS, 1 dose, On Wed02/03/23 at 0730, Routine, Dialysis, Now x1 bolus 4500 units to be given at the beginning of dialysis 1500 units/hour to be given over the course of dialysis (9000 units total). Stop 1 hour prior to end of treatment. To be administered per Policy [id number].Indications:ESRD (end stage renal disease) ([facility]) Given 02/03/2023 7:17 EDT 9,000 Units nepro w/ carb steady bolus 237 mL 237 mL (1 Package), oral, ONCE IN DIALYSIS, 1 dose, On Wed02/03/23 at 0730, RoutineIndications:ESRD (end stage renal disease) ([facility]),Abnormal albumin Given 02/03/2023 7:24 EDT 237 mL documented in this encounter Orders Dialysis Count Last Ordered Date First Orde red Date HEMODIALYSIS 1 02/03/2023 documented in this encounter Care Teams Student Truck Driver Relationship Specialty Start Date End Date Adeola Villegas APRN [address] [place] [address] PCP - General 10/12/16 07/06/23 documented as of this encounter
--- OUTSIDE RECORDS SUMMARY | 2024-12-05 12:28 | XMS_ITS | Encounter Summary ---
Author Organization [facility] Address [address] [place] [address] Care Team Providers Care Drug Counselor Name Role Phone Adeola Villegas APRN Primary Care Provider [phone] Encounter Details Date Type Department Care Team (Late st Contact Info) Description 01/29/2023 Orders Only [facility] [address] [place], [place] [id number] Yoanna Degroot, RN Social History Tobacco Use [...] 6:45 EST Treatment [facility] [address] [place] [address] Carlota Jin MD [facility] Level [address] [place] [phone] 12/08/2024 6:45 EST Treatment [facility] [address] [place] [address] Carlota Jin MD [facility], [facility] 2 [place] [phone] 12/11/2024 6:45 EST Treatment [facility] [address] [place], [place] [address] Carlota Jin MD [address] [facility], [facility] 2 [place] [phone] 12/13/2024 6:45 EST Treatment [facility] [address] [place], [place] [id number] Carlota Jin MD 1 [facility], [facility] 2 [place] [phone] 12/15/2024 6:45 EST Treatment [facility] [address] [place], [place] [id number] Carlota Jin MD 1 [facility], [facility] 2 [place] [phone] 12/18/2024 6:45 EST Treatment [facility] [address] [place] [address] Carlota Jin MD [address] [facility], [facility] 2 [place] [phone] 12/20/2024 6:45 EST Treatment [facility] [address] [place], [place] [id number] Carlota Jni MD 1 [facility], [facility] 2 [place] [phone] 12/22/2024 6:45 EST Treatment [facility] [address] [place], [place] [id number] Carlota Jin MD 1 [facility], [facility] 2 [place] [phone] 12/25/2024 6:45 EST Treatment [facility] [place] [address] [place], [place] [id number] Carlota Jin MD 1 [facility], [facility] 2 [place] [phone] 12/27/2024 6:45 EST Treatment [facility] [address] [place], [place] [id number] Carlota Jin MD 1 [facility], [facility] 2 [place] [phone] 12/29/2024 6:45 EST Treatment [facility] [address] [place], [place] [id number] Carlota Jin MD 1 [facility], [facility] 2 [place] [phone] 01/01/2025 6:45 EDT Treatment [facility] [address] [place], [place] [id number] Carlota Jin MD 1 [facility], [facility] 2 [place] [phone] 01/03/2025 6:45 EDT Treatment [facility] [address] [place], [place] [id number] Carlota Jin MD [address] [facility], Level [address] [place] [phone] 01/05/2025 6:45 EDT Treatment [facility] [address] [place], [place] [address] Carloat Jin MD [address] [facility], [facility] 2 [place] [phone] 01/08/2025 6:45 EDT Treatment [facility] [place] [address] [place], [place] [id number] Carlota Jin MD 1 [facility], [facility] 2 [place] [phone] 01/10/2025 6:45 EDT Treatment [facility] [place] [address] [place] [address] Carlota Jin MD 1 [facility], [facility] 2 [place] [phone] 01/12/2025 6:45 EDT Treatment [facility] [address] [place] [address] Carlota Jin MD [address] [facility], [facility] 2 [place] [phone] 01/15/2025 6:45 EDT Treatment [facility] [address] [place], [place] [id number] Carlota Jin MD 1 [facility], [facility] 2 [place] [phone] 01/17/2025 6:45 EDT Treatment [facility] [place] [address] [place], [place] [id number] Carlota Jin MD 1 [facility], [facility] 2 [place] [phone] 01/19/2025 6:45 EDT Treatment [facility] [place] [address] [place], [place] [id number] Carlota Jin MD 1 [facility], [facility] 2 [place] [phone] 01/22/2025 6:45 EDT Treatment [facility] [place] [address] [place], [place] [id number] Carlota Jin MD [address] [place] [address], [facility] 2 [place] [phone] 01/24/2025 6:45 EDT Treatment [facility] [place] [address] [place], [place] [id number] Carlota Jin MD 1 [facility], [facility] 2 [place] [phone] 01/26/2025 6:45 EDT Treatment [facility] [place] [address] [place], [place] [id number] Carlota Jin MD 1 [facility], [facility] 2 [place] [phone] 01/29/2025 6:45 EDT Treatment [facility] [place] [address] [place], [place] [id number] Carlota Jin MD 1 [facility], [facility] 2 [place] [phone] 01/31/2025 6:45 EDT Treatment [facility] [address] [place], [place] [id number] Carlota Jin MD [address] [facility], [facility] 2 [place] [phone] 02/02/2025 6:45 EDT Treatment [facility] [address] [place], [place] [id number] Carlota Jin MD 1 [facility], [address] [phone] 02/05/2025 6:45 EDT Treatment [facility] [address] [place], [place] [id number] Carlota Jin MD 1 [facility], [address] [phone] 02/07/2025 6:45 EDT Treatment [facility] [address] [place], [place] [id number] Carlota Jin MD 1 [facility], [facility] 2 [place] [phone] 02/09/2025 6:45 EDT Treatment [facility] [place] [address] [place], [place] [id number] Carlota Jin MD 1 [facility], [facility] 2 [place] [phone] 02/12/2025 6:45 EDT Treatment [facility] [address] [place], [place] [id number] Carlota Jin MD [address] [phone] 02/14/2025 6:45 EDT Treatment [facility] [place] [address] [place], [place] [id number] Carlota Jin MD [address] [place] [phone] 02/16/2025 6:45 EDT Treatment [facility] [place] [address] [place], [place] [id number] Carlota Jin MD [address] [place] [phone] 02/19/2025 6:45 EDT Treatment [facility] [place] [address] [place], [place] [id number] Carlota Jin MD [address] [place] [phone] 02/21/2025 6:45 EDT Treatment [facility] [place] [address] [place], [place] [id number] Carlota Jin MD [address] [place] [phone] documented as of this encounter Visit Diagnoses Not on filedocumented in this encounter Care Teams Drug Counselor Relationship Specialty Start Date End Date Villegas, Adeola, [employer] M[employer] OPERATOR [address] [place] [address] PCP - General 10/12/16 07/06/23 documented as of this encounter
--- OUTSIDE RECORDS SUMMARY | 2024-12-05 12:28 | XMS_ITS | Encounter Summary ---
Author Organization [facility] Address [address] [place] [address] Care Team Providers Care Delinquency Prevention Social Worker Name Role Phone Adeola Villegas MONA Primary Care Provider [phone] Encounter Details Date Type Department Care Team (Late st Contact Info) Description 02/01/2023 7:[address] [facility] [address] [place], [place] [id number] Carlota Jin MD 1 [facility], Level 2 [place] [address] ESRD (end stage renal disease) ([facility]) (Primary Dx); Anemia of chronic [...] - Temperature - - Respiratory Rate 16 02/01/2023 0654 EDT Oxygen Saturation - - Inhaled Oxygen Concentration - - Weight 91.9 kg (202 lb 9.6 oz) 02/01/2023 0654 E DT Height - - Body Mass Index 29.49 01/25/2023 0751 EDT documented in this encounter Miscellaneous Notes * Flowsheet Note - Marcela Cox RN - 02/01/2023 1406 EDT 02/01/23 1105 Post-Hemodialysis Assessment Total Blood Processed (L) 89.13 Liters Dialyzer Clearance Lightly streaked Treatment UFR (ml:kg:hr) 10.44 ml:kg:hr Critline refill Not done Fluid Removed (L) 4 L Post-Dialysis Scale Weight 88.2 kg (194 lb 7.1 oz) Wheelchair Weight 0 kg (0 lb) Prosthesis Weight 0 kg (0 lb) Post-Treatment Weight (kg) 88.2 Treatment Weight Change (kg) 3.7 kg Day Target Weight (kg) 88.4 Post Sitting/Lying BP 144/78 Post Sitting/Lying pulse 59 Post Standing BP 110/62 Post Standing Pulse 62 Temp 36.1 ??C (97 ??F) Temp src Temporal Post access assessment AVF/AFG Hemostasis achieved Yes Note 10 min clamp hold Orientation Alert and Oriented x3 Yes [...] Contact Info) Description 12/06/2024 6:45 EST Treatment [facility] [address] [place], [place] [id number] Carlota Jin MD 1 [facility], [facility] 2 [place] [address] 12/08/2024 6:45 EST Treatment [facility] [address] [place] [id number] Carlota Jin MD 1 [facility], [facility] 2 [place] [address] 12/11/2024 6:45 EST Treatment [facility] [place] [address] [place], [place] [id number] Carlota Jin MD 1 [facility], [facility] 2 [place] [phone] 12/13/2024 6:45 EST Treatment [facility] [place] [address] [place], [place] [id number] Carlota Jin MD 1 [facility], [facility] 2 [place] [phone] 12/15/2024 6:45 EST Treatment [facility] [place] [address] [place], [place] [id number] Carlota Jin MD 1 [facility], [facility] 2 [place] [phone] 12/18/2024 6:45 EST Treatment [facility] [place] [address] [place], [place] [id number] Carlota Jin MD 1 [facility], [facility] 2 [place] [phone] 12/20/2024 6:45 EST Treatment [facility] [place] [address] [place], [place] [id number] Carlota Jin MD 1 [facility], [facility] 2 [place] [phone] 12/22/2024 6:45 EST Treatment [facility] [place] [address] [place], [place] [id number] Carlota Jin MD 1 [facility], [facility] 2 [place] [phone] 12/25/2024 6:45 EST Treatment [facility] [place] [address] [place] [address] Carlota Jin MD 1 [facility], [facility] 2 [place] [phone] 12/27/2024 6:45 EST Treatment [facility] [place] [address] [place] [address] Carlota Jin MD 1 [facility], [facility] 2 [place] [phone] 12/29/2024 6:45 EST Treatment [facility] [place] [address] [place] [address] Carlota Jin MD 1 [facility], [facility] 2 [place] [phone] 01/01/2025 6:45 EDT Treatment [facility] [place] [address] [place] [address] Carlota Jin MD 1 [facility], [facility] 2 [place] [phone] 01/03/2025 6:45 EDT Treatment [facility] [place] [address] [place], [place] [id number] Carlota Jin MD 1 [facility], [facility] 2 [place] [phone] 01/05/2025 6:45 EDT Treatment [facility] [place] [address] [place], [place] [address] Carlota Jin MD 1 [facility], [facility] 2 [place] [phone] 01/08/2025 6:45 EDT Treatment [facility] [place] [address] [place] [address] Carlota Jin MD 1 [facility], [address] [phone] 01/10/2025 6:45 EDT Treatment [facility] [place] [address] [place], [place] [id number] Carlota Jin MD 1 [facility], [facility] 2 [place] [phone] 01/12/2025 6:45 EDT Treatment [facility] [place] [address] [place], [place] [address] Carlota Jin MD 1 [facility], [facility] 2 [place] [phone] 01/15/2025 6:45 EDT Treatment [facility] [place] [address] [place], [place] [id number] Carlota Jin MD 1 [facility], [facility] 2 [place] [phone] 01/17/2025 6:45 EDT Treatment [facility] [place] [address] [place], [place] [address] Carlota Jin MD 1 [facility], [facility] 2 [place] [phone] 01/19/2025 6:45 EDT Treatment [facility] [place] [address] [place], [place] [id number] Carlota Jin MD 1 [facility], [address] [phone] 01/22/2025 6:45 EDT Treatment [facility] [place] [address] [place], [place] [id number] Carlota Jin MD 1 [facility], [address] [phone] 01/24/2025 6:45 EDT Treatment [facility] [place] [address] [place], [place] [id number] Carlota Jin MD [address] [phone] 01/26/2025 6:45 EDT Treatment [facility] [place] [address] [place], [place] [id number] Carlota Jin MD [address] [phone] 01/29/2025 6:45 EDT Treatment [facility] [place] [address] [place], [place] [id number] Carlota Jin MD 1 [facility], [facility] 2 [place] [phone] 01/31/2025 6:45 EDT Treatment [facility] [place] [address] [place], [place] [id number] Carlota Jin MD 1 [facility], [facility] 2 [place] [phone] 02/02/2025 6:45 EDT Treatment [facility] [place] [address] [place], [place] [id number] Carlota Jin MD 1 [facility], [facility] 2 [place] [phone] 02/05/2025 6:45 EDT Treatment [facility] [place] [address] [place], [place] [id number] Carlota Jin MD 1 [facility], [address] [phone] 02/07/2025 6:45 EDT Treatment [facility] [place] [address] [place] [address] Carlota Jin MD 1 [facility], [facility] 2 [place] [phone] 02/09/2025 6:45 EDT Treatment [facility] [place] [address] [place], [place] [id number] Carlota Jin MD 1 [facility], [facility] 2 [place] [phone] 02/12/2025 6:45 EDT Treatment [facility] [place] [address] [place], [place] [id number] Carlota Jin MD [address] [phone] 02/14/2025 6:45 EDT Treatment [facility] [place] [address] [place], [place] [id number] Carlota Jin MD [address] [place] [phone] 02/16/2025 6:45 EDT Treatment [facility] [place] [address] [place], [place] [id number] Carlota Jin MD [address] [place] [phone] 02/19/2025 6:45 EDT Treatment [facility] [place] [address] [place], [place] [id number] Carlota Jin MD [address] [phone] 02/21/2025 6:45 EDT Treatment [facility] [place] [address] [place], [place] [id number] Carlota Jin MD [address] [place] [phone] documented as of this encounter Procedures Procedure Name Priority Date/Time Associated Diagnosis Comments HEMODIALYSIS Routine 02/01/2023 6:54 EDT ESRD (end stage renal disease) ([facility]) documented in this encounter Visit [...] intravenous, ONCE IN DIALYSIS, 1 dose, On Wed02/01/23 at 0715, Routine, DialysisIndications:ESRD (end stage renal disease) ([facility]),Anemia of chronic renal failure, unspecified CKD stage Given 02/01/2023 7:16 EDT 500 Units heparin injection 9,000 Units 9,000 Units, intravenous, ONCE IN DIALYSIS, 1 dose, On Wed02/01/23 at 0715, Routine, Dialysis, Now x1 bolus 4500 units to be given at the beginning of dialysis 1500 units/hour to be given over the course of dialysis (9000 units total). Stop 1 hour prior to end of treatment. To be administered per Policy [id number].Indications:ESRD (end stage renal disease) ([facility]) Given 02/01/2023 7:05 EDT 9,000 Units iron sucrose (VENOFER) injection 200 mg 200 mg, intravenous, ONCE IN DIALYSIS, 1 dose, On Wed02/01/23 at 0715, Routine, DialysisIndications:Hypoalbumine bozena,Encounter for immunization,ESRD (end stage renal disease) ([facility]) Given 02/01/2023 8:42 EDT 200 mg nepro w/ carb steady bolus 237 mL 237 mL (1 Package), oral, ONCE IN DIALYSIS, 1 dose, On Wed02/01/23 at 0715, RoutineIndications:ESRD (end stage renal disease) ([facility]),Abnormal albumin Given 02/01/2023 7:16 EDT 237 mL documented in this encounter Orders Dialysis Count Last Ordered Date First Orde red Date HEMODIALYSIS 1 02/01/2023 documented in this encounter Care Teams Delinquency Prevention Social Worker Relationship Specialty Start Date End Date Adeola Villegas APRN [address] [place] [address] PCP - General 10/12/16 07/06/23 documented as of this encounter
--- OUTSIDE RECORDS SUMMARY | 2024-12-05 12:28 | XMS_ITS | Encounter Summary ---
Author Organization [facility] Address [address] [place] [address] Care Team Providers Care Child Psychologist Name Role Phone Adeola Villegas MONA Primary Care Provider [phone] Ken Greer MD Primary Care Provider [phone] Kiel Powers Unavailable Unavailable Encounter Details Date Type Department Care Team (Late st Contact Info) Description 02/05/2023 Documentation Visit [facility] [place] [address] [place] [address] Yoanna Degroot, VIDYA Social History Tobacco Use [...] EST Treatment [facility] [place] [address] [place], [place] [id number] Carlota Jin MD 1 [facility], Level [address] [place] [phone] 12/08/2024 6:45 EST Treatment [facility] [place] [address] [place], [place] [id number] Carlota Jin MD 1 [facility] 2 [place] [phone] 12/11/2024 6:45 EST Treatment [facility] [place] [address] [place], [place] [id number] Carlota Jin MD 1 [facility], [facility] 2 [place] [phone] 12/13/2024 6:45 EST Treatment [facility] [place] [address] [place], [place] [id number] Carlota Jin MD 1 [facility], [facility] 2 [place] [phone] 12/15/2024 6:45 EST Treatment [facility] [place] [address] [place], [place] [id number] Carlota Jin MD 1 [facility], [address] [phone] 12/18/2024 6:45 EST Treatment [facility] [place] [address] [place], [place] [id number] Carlota Jin MD 1 [facility], [facility] 2 [place] [phone] 12/20/2024 6:45 EST Treatment [facility] [place] [address] [place], [place] [id number] Carlota Jin MD 1 [facility], [facility] 2 [place] [phone] 12/22/2024 6:45 EST Treatment [facility] [place] [address] [place], [place] [id number] Carlota Jin MD 1 [facility], [facility] 2 [place] [phone] 12/25/2024 6:45 EST Treatment [facility] [place] [address] [place], [place] [id number] Carlota Jin MD 1 [facility], [facility] 2 [place] [phone] 12/27/2024 6:45 EST Treatment [facility] [place] [address] [place], [place] [address] [phone] MD 1 [facility], [facility] 2 [place] [phone] 12/29/2024 6:45 EST Treatment [facility] [place] [address] [place] [address] Carlota Jin MD 1 [facility], [facility] 2 [place] [phone] 01/01/2025 6:45 EDT Treatment [facility] [place] [address] [place], [place] [id number] Carlota Jin MD 1 [facility], [facility] 2 [place] [phone] 01/03/2025 6:45 EDT Treatment [facility] [place] [address] [place], [place] [address] Carlota Jin MD 1 [facility], [address] [phone] 01/05/2025 6:45 EDT Treatment [facility] [place] [address] [place] [address] Carlota Jin MD 1 [facility], [address] [phone] 01/08/2025 6:45 EDT Treatment [facility] [place] [address] [place], [place] [id number] Carlota Jin MD 1 [facility], [address] [phone] 01/10/2025 6:45 EDT Treatment [facility] [place] [address] [place], [place] [id number] Carlota iJn MD 1 [facility], [address] [phone] 01/12/2025 6:45 EDT Treatment [facility] [place] [address] [place], [place] [id number] Carlota Jin MD [address] [phone] 01/15/2025 6:45 EDT Treatment [facility] [place] [address] [place], [place] [id number] Carlota Jin MD 1 [facility], [facility] 2 [place] [phone] 01/17/2025 6:45 EDT Treatment [facility] [place] [address] [place], [place] [id number] Carlota Jin MD 1 [facility], [facility] 2 [place] [phone] 01/19/2025 6:45 EDT Treatment [facility] [place] [address] [place], [place] [id number] Carlota Jin MD 1 [facility], [facility] 2 [place] [phone] 01/22/2025 6:45 EDT Treatment [facility] [place] [address] [place], [place] [id number] Carlota Jin MD [address] [place] [address], [address] [phone] 01/24/2025 6:45 EDT Treatment [facility] [place] [address] [place], [place] [id number] Carlota Jin MD 1 [facility], [facility] 2 [place] [phone] 01/26/2025 6:45 EDT Treatment [facility] [place] [address] [place], [place] [id number] Carlota Jin MD 1 [facility], [facility] 2 [place] [phone] 01/29/2025 6:45 EDT Treatment [facility] [place] [address] [place], [place] [id number] Carlota Jin MD 1 [facility], [facility] 2 [place] [phone] 01/31/2025 6:45 EDT Treatment [facility] [place] [address] [place], [place] [id number] Carlota Jin MD 1 [facility], [address] [phone] 02/02/2025 6:45 EDT Treatment [facility] [place] [address] [place], [place] [id number] Carlota Jin MD 1 [facility], [address] [phone] 02/05/2025 6:45 EDT Treatment [facility] [place] [address] [place], [place] [id number] Carlota Jin MD 1 [facility], [address] [phone] 02/07/2025 6:45 EDT Treatment [facility] [place] [address] [place], [place] [address] Carlota Jin MD 1 [facility], [facility] 2 [place] [phone] 02/09/2025 6:45 EDT Treatment [facility] [place] [address] [place], [place] [id number] Carlota Jin MD 1 [facility], [facility] 2 [place] [phone] 02/12/2025 6:45 EDT Treatment [facility] [place] [address] [place], [place] [id number] Carlota Jin MD 1 [facility], [facility] 2 [place] [phone] 02/14/2025 6:45 EDT Treatment [facility] [place] [address] [place], [place] [id number] Carlota Jin MD 1 [facility], [facility] 2 [place] [phone] 02/16/2025 6:45 EDT Treatment [facility] [place] [address] [place], [place] [id number] Carlota Jin MD 1 [facility], [facility] 2 [place] [phone] 02/19/2025 6:45 EDT Treatment [facility] [place] [address] [place] [address] Carlota Jin MD 1 [facility], [facility] 2 [place] [phone] 02/21/2025 6:45 EDT Treatment [facility] [place] [address] [place], [place] [address] Carlota Jin MD 1 [facility], [facility] 2 [place] [phone] documented as of this encounter Visit Diagnoses Not on filedocumented in this encounter Additional Health Concerns Infection Onset Date Last Indicated Resolved Time COVID-19 Comment:COVID+ 11/05/23 @[place] (see scan) 11/08/2023 11/08/2023 11/17/2023 13:58 EST R/O COVID-19 12/20/2023 12/20/2023 12/20/2023 7:14 EST COVID-19 Comment:Collected @ [facility]. 03/12/2024 03/13/2024 04/01/2024 22: 15 EDT R/O COVID-19 05/30/2024 05/30/2024 05/30/2024 20:5 0 EDT documented as of this encounter Care Teams Child Psychologist Relationship Specialty Start Date End Date Adeola Villegas APRN [address] [place] [address] PCP - General 10/12/16 07/06/23 Ken Greer MD [address] [place] [address] PCP - General 07/07/23 Kiel Powers Remote Control Assembler Nephrology 05/31/24 documented as of this encounter
--- OUTSIDE RECORDS SUMMARY | 2024-12-05 12:28 | XMS_ITS | Encounter Summary ---
Author Organization [facility] Address [address] [place] [address] Care Team Providers Care Finish Mill Operator Name Role Phone Adeola Villegas APRN Primary Care Provider [phone] Encounter Details Date Type Department Care Team (Late st Contact Info) Description 01/26/2023 [facility]ation [facility] [address] [place] [id number] Shelley Eden, RD [address] [place] [address] Social History Tobacco Use Types Packs/Day Years [...] 6:45 EST Treatment [facility] [address] [place] [id number] Carlota Jin MD 1 [facility], Level 2 [place] [phone] 12/08/2024 6:45 EST Treatment [facility] [address] [place] [id number] Carlota Jin MD 1 [facility], [facility] 2 [place] [phone] 12/11/2024 6:45 EST Treatment [facility] [place] [address] [place], [place] [id number] Carlota Jin MD 1 [facility], [facility] 2 [place] [phone] 12/13/2024 6:45 EST Treatment [facility] [place] [address] [place], [place] [id number] Carlota Jin MD 1 [facility], [facility] 2 [place] [phone] 12/15/2024 6:45 EST Treatment [facility] [place] [address] [place] [address] Carlota Jin MD 1 [facility], [facility] 2 [place] [phone] 12/18/2024 6:45 EST Treatment [facility] [place] [address] [place], [place] [id number] Carlota Jin MD 1 [facility], [facility] 2 [place] [phone] 12/20/2024 6:45 EST Treatment [facility] [place] [address] [place], [place] [id number] Carlota Jin MD 1 [facility], [facility] 2 [place] [phone] 12/22/2024 6:45 EST Treatment [facility] [place] [address] [place], [place] [id number] Carlota Jin MD 1 [facility], [facility] 2 [place] [phone] 12/25/2024 6:45 EST Treatment [facility] [place] [address] [place], [place] [id number] Carlota Jin MD 1 [facility], [facility] 2 [place] [phone] 12/27/2024 6:45 EST Treatment [facility] [address] [place], [place] [id number] Carlota Jin MD [address] [place] [address], [facility] [address] [place] [phone] 12/29/2024 6:45 EST [facility] [address] [place], [place] [id number] Carlota Jin MD 1 [facility], [facility] 2 [place] [phone] 01/01/2025 6:45 EDT Treatment [facility] [address] [place], [place] [id number] Carlota Jin MD 1 [facility], [facility] 2 [place] [phone] 01/03/2025 6:45 EDT Treatment [facility] [address] [place], [place] [id number] Carlota Jin MD 1 [facility], [facility] 2 [place] [phone] 01/05/2025 6:45 EDT Treatment [facility] [place] [address] [place], [place] [id number] Carlota Jin MD 1 [facility], [facility] 2 [place] [phone] 01/08/2025 6:45 EDT Treatment [facility] [place] [address] [place], [place] [id number] Carlota Jin MD 1 [facility], [address] [phone] 01/10/2025 6:45 EDT Treatment [facility] [place] [address] [place], [place] [id number] Carlota Jin MD 1 [facility], [address] [phone] 01/12/2025 6:45 EDT Treatment [facility] [place] [address] [place], [place] [id number] Carlota Jin MD 1 [facility], [facility] 2 [place] [phone] 01/15/2025 6:45 EDT Treatment [facility] [place] [address] [place], [place] [id number] Carlota Jin MD 1 [facility], [facility] 2 [place] [phone] 01/17/2025 6:45 EDT Treatment [facility] [place] [address] [place], [place] [id number] Carlota Jin MD 1 [facility], [facility] 2 [place] [phone] 01/19/2025 6:45 EDT Treatment [facility] [place] [address] [place], [place] [id number] Carlota Jin MD 1 [facility], [facility] 2 [place] [phone] 01/22/2025 6:45 EDT Treatment [facility] [place] [address] [place], [place] [address] Carlota Jin MD 1 [facility], [address] [phone] 01/24/2025 6:45 EDT Treatment [facility] [place] [address] [place], [place] [id number] Carlota iJn MD 1 [facility], [facility] 2 [place] [phone] 01/26/2025 6:45 EDT Treatment [facility] [place] [address] [place], [place] [id number] Carlota Jin MD 1 [facility], [facility] 2 [place] [phone] 01/29/2025 6:45 EDT Treatment [facility] [place] [address] [place], [place] [address] Carlota Jin MD 1 [facility], [facility] 2 [place] [phone] 01/31/2025 6:45 EDT Treatment [facility] [place] [address] [place] [address] Carlota Jin MD 1 [facility], [address] [phone] 02/02/2025 6:45 EDT Treatment [facility] [place] [address] [place], [place] [address] Carlota Jin MD 1 [facility], [address] [phone] 02/05/2025 6:45 EDT Treatment [facility] [place] [address] [place] [address] Carlota Jin MD 1 [facility], [address] [phone] 02/07/2025 6:45 EDT Treatment [facility] [place] [address] [place], [place] [id number] Carlota Jin MD [address] [phone] 02/09/2025 6:45 EDT Treatment [facility] [place] [address] [place], [place] [id number] Carlota Jin MD 1 [facility], [facility] 2 [place] [phone] 02/12/2025 6:45 EDT Treatment [facility] [place] [address] [place], [place] [id number] Carlota Jin MD 1 [facility], [facility] 2 [place] [phone] 02/14/2025 6:45 EDT Treatment [facility] [place] [address] [place], [place] [id number] Carlota Jin MD 1 [facility], [address] [phone] 02/16/2025 6:45 EDT Treatment [facility] [place] [address] [place], [place] [id number] Carlota Jin MD 1 [facility], [address] [phone] 02/19/2025 6:45 EDT Treatment [facility] [place] [address] [place], [place] [id number] Carlota Jin MD 1 [facility], [address] [phone] 02/21/2025 6:45 EDT Treatment [facility] [place] [address] [place], [place] [id number] Carlota Jin MD 1 [facility], [facility] 2 [place] [phone] documented as of this encounter Visit Diagnoses Not on filedocumented in this encounter Care Teams Finish Mill Operator Relationship Specialty Start Date End Date Adeola Villegas APRN [address] [place] [address] PCP - General 10/12/16 07/06/23 documented as of this encounter
--- OUTSIDE RECORDS SUMMARY | 2024-12-05 12:29 | XMS_ITS | Encounter Summary ---
Author Organization [facility] Address [address] [place] [address] Care Team Providers Care Manager Environmental Health And Safety Name Role Phone Adeoal Villegas MONA Primary Care Provider Encounter Details Date Type Department Care Team (Late st Contact Info) Description 01/18/2023 7:15 EDT Treatment [facility] [address] [place], [place] [phone] Carlota Jin MD 1 [facility], [address] [place] [address] ESRD (end stage renal disease) ([facility]) (Primary Dx); Hypoalbuminemia; Encounter for [...] - Temperature - - Respiratory Rate 16 01/18/2023 0657 EDT Oxygen Saturation - - Inhaled Oxygen Concentration - - Weight 89.8 kg (197 lb 15.6 oz) 01/18/2023 0657 EDT Height - - Body Mass Index - - documented in this encounter Miscellaneous Notes * Flowsheet Note - Marcela Cox RN - 01/18/2023 1347 EDT 01/18/23 1306 Post-Hemodialysis Assessment Total Blood Processed (L) 79.08 Liters Dialyzer Clearance Lightly streaked Treatment UFR (ml:kg:hr) 9.68 ml:kg:hr Critline refill Negative Fluid Removed (L) 3.2 L Post-Dialysis Scale Weight 86.4 kg (190 lb 7.6 oz) Wheelchair Weight 0 kg (0 lb) Prosthesis Weight 0 kg (0 lb) Post-Treatment Weight (kg) 86.4 Treatment Weight Change (kg) 3.4 kg Day Target Weight (kg) 86.8 Post Sitting/Lying BP 163/85 Post Sitting/Lying pulse 65 Post Standing BP 128/73 Post Standing Pulse 65 Temp 36.4 ??C (97.5 ??F) Temp src Tympanic Post access assessment AVF/AFG Hemostasis achieved Yes Note 10 min clamp hold Orientation Alert and Oriented x3 Yes Cooperative Yes Disoriented No Discharge Ambulation Methods Ambulatory without assistance Wrap up items Patient Response to Treatment Tolerated tx well. Removed 3.2L UF goal without difficulty. Comments No issues during tx, no concerns voiced post tx. * Dialysis Comprehensive - Carlota Jin MD - 01/18/2023 0715 EDT Images from the original note were not included. Dialysis Provider's Monthly Comprehensive Assessment Dialysis Unit: [facility] ESRD Etiology: Type 2 diabetes mellitus with diabetic chronic kidney disease Patient Active Problem List Diagnosis ??? 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 ESRD (end stage renal disease) (HCC-CMS) (HCC) ??? Essential (primary) hypertension ??? Hearing loss ??? Herniation of lumbar intervertebral disc with radiculopathy ??? Hyperlipidemia ??? Proteinuria ??? Right sided numbness ??? Secondary hyperparathyroidism (HCC-CMS) (HCC) ??? TIA (transient ischemic attack) ??? Type II or unspecified type diabetes mellitus with neurological manifestations, uncontrolled(250.62) ??? Encounter for immunization ??? Hypoalbuminemia Treatment Modality: Patient received information regarding treatment [...] Yes Average Interdialytic Fluid Gains: InterDialytic +/- 01/11/2023 01/11/2023 01/13/2023 01/13/2023 01/15/2023 01/15/2023 01/18/2023 Gain/Loss 4.2 - 3.8 - 1.7 - 3.3 Wt (pre) 90.6 - 90.8 - 89.2 - 89.8 Wt (post) - 87 - 87.5 - 86.5 - Treatment UFR (ml:kg:hr) - 10.26 - 9.39 - 7.77 - BP (pre) 127/65 - 140/79 - 147/80 - 153/76 BP (post) 146/79 - 149/80 - 178/92 - 183/93 Pulse (pre) 65 - 69 - 66 - 68 Pulse(post) 64 - 60 - 65 - 66 Resp (/min) - 18 18 18 18 18 16 Volume and blood pressure have been addressed with the following changes: None Consistently able to achieve estimated dry weight? Yes Blood pressure is in range for patient? Yes Any adverse intradialytic symptoms? No Plan: Managed per protocol Physical Exam Gen: NAD, awake, alert Resp: CTAB, unlabored breathing CV: RRR Abd: soft Ext: no edema Neuro: AAOx3, moves all ext spont Skin: exposed skin is warm and dry with no obvious lesion or rash Hospitalization Hospitalization in Previous 3 Months: No Emergency Room Visit in Previous 3 Months: No Access Management Current LDAs: Hemodialysis Arteriovenous Access 02/13/19 (Active) AV Fistula Present 01/18/23 07 Site Assessment Clean;Dry;Intact;Bruit heard;Thrill felt 01/15/23 0715 Current State Active 01/18/23 0710 Status Accessed 01/18/23709 Is Maturing N 01/18/23709 Local Anesthetic None 01/18/23709 Site Prep Chlorhexidine 01/18/23709 Venous Needle Size 15 G 01/18/23 0710 Arterial/Generic Needle Size 15 G 01/18/23 0710 Accessed by: Cecile Cortes 01/18/23709 Access Attempts 2 01/18/23 07 Dressing Status/Care Clean/Dry/Intact 01/15/23 0715 Patient has [...] by mouth daily., Disp: , Rfl: ??? azithromycin (ZITHROMAX) 250 mg tablet, TAKE TWO TABLETS BY MOUTH AT ONCE ON THE FIRST DAY THENTAKE ONE DAILY THEREAFTER, Disp: , Rfl: ??? BABY ASPIRIN ORAL, [...] 2 times daily., Disp: , Rfl: ??? hydroCHLOROthiazide (HYDRODIURIL) 25 mg tablet, , Disp: , Rfl: ??? hydrOXYzine (ATARAX) 25 mg tablet, Take 25 mg by mouth at bedtime., Disp: , Rfl: ??? insulin detemir (LEVEMIR FLEXPEN SUBQ), Inject into the skin., Disp: , Rfl: ??? MULTIVITAMIN ORAL, Take [...] Hemodialysis 3 times a week Week of 01/17/2023 Routine, ONE TIME Starting when released Prescribed [...] - UF Profile: None Dialysis Last released: Wed01/18/2023 Medications acetaminophen (TYLENOL) tablet 650 mg PRN PRN 650 mg, oral, EVERY 4 HOURS PRN Starting when released Until Discontinued, Pain, Dialysis Last released: Never diphenhydrAMINE (BENADRYL) capsule 25 mg PRN PRN [...] of treatment. To be administered per Policy [id number]. Last released: Wed01/18/2023 sodium chloride 0.9 % BOLUS 100 mL PRN PRN 100 mL, intravenous, PRN Starting when released Until Discontinued, Other, hypotension or cramping,Dialysis Last released: Never Dialysis Weekly Labs Complete Blood Count Weekly: Wed01/20/2023 Routine, ONE TIME Starting when released, Blood, Venous, Blood Results Release to Patient (Note: Choosing Manual Release will only block results from tests performed at [facility] and does not apply for Miscellaneous Test Order): Immediate via MyChart Portal Dialysis Last released: Wed01/13/2023 Potassium Weekly: Wed01/11/2023 Routine, ONE TIME Starting when released, Blood, Venous, Blood Results Release to Patient (Note: Choosing Manual Release will only block results from tests performed at [facility] and does not apply for Miscellaneous Test Order): Immediate via MyChart Portal Dialysis Last released: Wed01/04/2023 Dialysis PRN Labs Postdialysis BUN with URR Calculation PRN PRN ONE TIME Starting when released, Blood, Blood, Venous Results Release to Patient (Note: Choosing Manual Release will only block results from tests performed at [facility] and does not apply for Miscellaneous Test Order): Immediate via MyChart Portal Dialysis Last released: Never BUN, Predialysis PRN PRN ONE TIME Starting when released, Blood, Blood, Venous Results Release to Patient (Note: Choosing Manual Release will only block results from tests performed at [facility] and does not apply for Miscellaneous Test Order): Immediate via MyChart Portal Dialysis Last released: Never Dialysis Monthly Labs Dialysis Iron (Includes Iron, IBC, and Ferritin) - Nephrology Use Only On the Mon of every 1 month [facility] 01/25/2023 Routine, ONE TIME Starting when released, Blood, Venous, Blood Results Release to Patient (Note: Choosing Manual Release will only block results from tests performed at [facility] and does not apply for Miscellaneous Test Order): Immediate via [employer] Portal Dialysis Last released: Wed12/28/2022 Dialysis Routine- Dialysis Use Only On the Wed of every 1 month [facility] 01/25/2023 Routine, ONE TIME Starting when released, Blood, Blood, Venous Results Release to Patient (Note: Choosing Manual Release will only block results from tests performed at [facility] and does not apply for Miscellaneous Test Order): Immediate via [employer] Portal Dialysis Last released: Wed12/28/2022 Postdialysis BUN with URR Calculation On the Wed of every 1 month [facility] 01/25/2023 Routine, ONE TIME Starting when released, Blood, Blood, Venous Results Release to Patient (Note: Choosing Manual Release will only block results from tests performed at [facility] and does not apply for Miscellaneous Test Order): Immediate via [employer] Portal Dialysis Last released: Wed12/28/2022 Dialysis Quarterly Labs PTH Intact On the Wed of every 3 months Wed02/22/2023 Routine, ONE TIME Starting when released, Blood, Venous, Blood Results Release to Patient (Note: Choosing Manual Release will only block results from tests performed at [facility] and does not apply for Miscellaneous Test Order): Immediate via [employer] Portal Dialysis Last released: Wed11/30/2022 Dialysis Annual Labs - October Dialysis Hepatitis- [...] On the Mon of every 12 months [facility] 10/25/2023 Routine, ONE TIME Starting when released, Blood, Venous, Blood Results Release to Patient (Note: Choosing Manual Release will only block results from tests performed at [facility] and does not apply for Miscellaneous Test Order): Immediate via MyChart Portal Dialysis Last released: Never Vitamin B12 On the 1st Mon of every 12 months 10/25/2023 Routine, ONE TIME Starting when released, Blood, Venous, Blood Results Release to Patient (Note: Choosing Manual Release will only block results from tests performed at [facility] and does not apply for Miscellaneous Test Order): Immediate via MyChart Portal Dialysis Last released: Never Vitamin D (25,OH) On the Wed of every 12 months Wed10/25/2023 Routine, ONE TIME Starting when released, Blood, Venous, Blood Results Release to Patient (Note: Choosing Manual Release will only block results from tests performed at [facility] and does not apply for Miscellaneous Test Order): Immediate via MyChart Portal Dialysis Last released: Never Dialysis Annual Labs - April Hepatitis C Ab w Reflex to HCV RNA by PCR On the Wed of every 12 months [facility] 04/26/2023 Routine, ONE TIME Starting when released, Blood, Venous, Blood Results Release to Patient (Note: Choosing Manual Release will only block results from tests performed at [facility] and does not apply for Miscellaneous Test Order): Immediate via MyChart Portal Dialysis Last released: Never HEMODIALYSIS [facility] Medications epoetin ken (EPOGEN) 20,000 unit/2 mL injection 500 Units Weekly: Wed, Wed01/22/2023 500 Units, intravenous, ONCE IN DIALYSIS Starting when released, Dialysis Last released: Wed01/18/2023 HEMODIALYSIS NUTRITIONAL SUPPLEMENTS Nutritional Supplements nepro w/ carb steady bolus 237 mL Every visit Every visit 237 mL (1 Package), oral, ONCE IN DIALYSIS Starting when released Last released: Wed01/18/2023 Adjustment made to dialysis medication: No Laboratory Results Dialysis Adequacy: spKt/V: 1.52 (Calculated from:; BUN Pre-Dialysis: 76 mg/dL at 12/28/2022 11:21; BUN Post-Dialysis: 21mg/dL at 12/28/2022 11:21; Pre-Treatment Weight (kg): 90.4 at 12/28/2022 6:58; Post-Treatment Weight (kg): 87.1 at 12/28/2022 11:06; Duration of Treatment (minutes): 240 minutes at 12/28/2022 11:06) Plan: Continue current dialysis prescription Anemia Management: Lab Results Component Value Date WBC 7.00 01/13/2023 HGB 11.0 (L) 01/13/2023 HGB 10.4 (L) 01/06/2023 HGB 11.2 (L) 12/30/2022 PLT 270 01/13/2023 FOLATE 17.3 11/16/2022 [id number] 688 11/16/2022 FERRITIN 762 (H) 12/28/2022 Current GEORGE/Dose: HEMODIALYSIS [facility] epoetin ken [...] Lab Results Component Value Date LABALBU 3.5 12/28/2022 ALKPHOS 84 12/28/2022 PHOS 7.0 (H) 12/28/2022 CALCIUM 9.1 12/28/2022 CALCCA 9.5 12/28/2022 PTH 341 (H) 11/30/2022 Vitamin D: cholecalciferol (Vitamin D3) - 25 mcg (1,000 unit) sevelamer hydrochloride - 800 mg This patient does not have an active medication from one of the medication groupers. Plan: Managed per protocol Potassium Management: Lab Results Component Value Date K 5.9 (H) 01/04/2023 Prescribed Potassium Concentrate: HEMODIALYSIS Ordered at: 01/18/23 0657 Dialysate concentrate: Potassium 2 mEq/L Calcium 2.5 mEq/L Last Dialysis Prescription released on: 01/18/2023 Selected bath: Potassium 2 mEq/L Calcium 2.5 mEq/L Some recent data might be hidden sevelamer hydrochloride - 800 mg Plan: Managed per protocol Nutrition: Lab Results Component Value Date LABALBU 3.5 12/28/2022 NA 134 (L) 12/28/2022 Protein Supplements: This patient does not have an active medication from one of the medication groupers. Plan: Managed per protocol Comments: No acute issues. He is trying to adhere to the dialysis diet but is not always able to do so. He has back pain which limits his mobility. I suggested he reach back out to the [facility] transplant service even though he is still smoking. He would benefit from the motivation. Carlota Jin MD documented in this encounter Plan of Treatment Upcoming Encounters Date Type Department Care Team (Late st Contact Info) Description 12/06/2024 6:[address] [facility] [place] [address] [place], [place] [phone] Carlota Jin MD 1 [facility], [facility] [place] [phone] 12/08/2024 6:[address] [facility] [place] [address] [place], [place] [phone] Carlota Jin MD [address] [phone] 12/11/2024 6:[address] [facility] [place] [address] [place], [place] [phone] Carlota Jin MD 1 [facility], [address] [phone] 12/13/2024 6:[address] [facility] [place] [address] [place], [place] [phone] Carlota Jin MD 1 [facility], [facility] [place] [phone] 12/15/2024 6:[address] [facility] [place] [address] [place], [place] [phone] Carlota Jin MD 1 [facility], [facility] [place] [phone] 12/18/2024 6:[address] [facility] [place] [address] [place], [place] [phone] Carlota Jin MD 1 [facility], [address] [place] [phone] 12/20/2024 6:[address] [facility] [place] [address] [place], [place] [phone] Carlota Jin MD 1 [facility], [facility] [place] [phone] 12/22/2024 6:[address] [facility] [place] [address] [place] [address] Carlota Jin MD 1 [facility], [facility] [place] [phone] 12/25/2024 6:[address] [facility] [place] [address] [place], [place] [phone] Carlota Jin MD 1 [facility], [facility] [place] [phone] 12/27/2024 6:[address] [facility] [place] [address] [place], [place] [phone] Carlota Jin MD 1 [facility], [address] [place] [phone] 12/29/2024 6:[address] [facility] [place] [address] [place] [phone] Carlota Jin MD 1 [facility], [facility] [place] [phone] 01/01/2025 6:[address] [facility] [place] [address] [place] [address] Carlota Jin MD 1 [facility], [address] [phone] 01/03/2025 6:[address] [facility] [place] [address] [place], [place] [phone] Carlota Jin MD 1 [facility], [address] [phone] 01/05/2025 6:[address] [facility] [place] [address] [place], [place] [phone] Carlota Jin MD 1 [facility], [address] [phone] 01/08/2025 6:[address] [facility] [place] [address] [place], [place] [phone] Carlota Jin MD 1 [facility], [address] [phone] 01/10/2025 6:[address] [facility] [place] [address] [place], [place] [phone] Carlota Jin MD 1 [facility], [facility] [place] [phone] 01/12/2025 6:[address] [facility] [place] [address] [place], [place] [phone] Carlota Jin MD 1 [facility], [facility] [place] [phone] 01/15/2025 6:[address] [facility] [place] [address] [place], [place] [phone] Carlota Jin MD 1 [facility], [facility] [place] [phone] 01/17/2025 6:[address] [facility] [place] [address] [place] [address] Carlota Jin MD 1 [facility], [facility] [place] [phone] 01/19/2025 6:[address] [facility] [place] [address] [place], [place] [phone] Carlota Jin MD 1 [facility], [facility] [address] [place] [phone] 01/22/2025 6:[address] [facility] [place] [address] [place], [place] [phone] Carlota Jin MD 1 [facility], [facility] [address] [place] [phone] 01/24/2025 6:[address] [facility] [place] [address] [place], [place] [id number] Carlota Jin MD 1 [facility], [facility] [address] [place] [phone] 01/26/2025 6:[address] [facility] [place] [address] [place], [place] [phone] Carlota Jin MD 1 [facility], [facility] [address] [place] [phone] 01/29/2025 6:[address] [facility] [place] [address] [place], [place] [phone] Carlota Jin MD 1 [facility], [facility] [address] [place] [phone] 01/31/2025 6:[address] [facility] [place] [address] [place], [place] [phone] Carlota Jin MD 1 [facility], [address] [phone] 02/02/2025 6:[address] [facility] [place] [address] [place], [place] [phone] Carlota Jin MD 1 [facility], [facility] [place] [phone] 02/05/2025 6:[address] [facility] [place] [address] [place], [place] [phone] Carlota Jin MD 1 [facility] [place] [phone] 02/07/2025 6:[address] [facility] [place] [address] [place], [place] [address] Carlota Jin MD 1 [facility], [facility] [address] [place] [phone] 02/09/2025 6:[address] [facility] [place] [address] [place], [place] [phone] Carlota Jin MD 1 [facility], [facility] [address] [place] [phone] 02/12/2025 6:[address] [facility] [place] [address] [place], [place] [phone] Carlota Jin MD 1 [facility], [facility] [address] [place] [phone] 02/14/2025 6:[address] [facility] [place] [address] [place] [address] Carlota Jin MD 1 [facility], [facility] [address] [place] [phone] 02/16/2025 6:[address] [facility] [address] [place], [place] [phone] Carlota Jin MD 1 [facility], [facility] [address] [place] [phone] 02/19/2025 6:[address] [facility] [place] [address] [place], [place] [phone] Carlota Jin MD 1 [facility], [address] [place] [phone] 02/21/2025 6:[address] [facility] [place] [address] [place], [place] [phone] Carlota Jin MD 1 [facility], [facility] [address] [place] [phone] documented as of this encounter Procedures Procedure Name Priority Date/Time Associated Diagnosis Comments HEMODIALYSIS Routine 01/18/2023 6:57 EDT ESRD (end stage renal disease) ([facility]) documented in this encounter Visit Diagnoses Diagnosis ESRD (end stage renal disease) ([facility])- Primary End stage renal [...] intravenous, ONCE IN DIALYSIS, 1 dose, On Wed01/18/23 at 0715, Routine, DialysisIndications:Hypoalbumine bozena,Encounter for immunization,ESRD (end stage renal disease) ([facility]) Given 01/18/2023 7:28 EDT 500 Units heparin injection 9,000 Units 9,000 Units, intravenous, ONCE IN DIALYSIS, 1 dose, On Wed01/18/23 at 0715, Routine, Dialysis, Now x1 bolus 4500 units to be given at the beginning of dialysis 1500 units/hour to be given over the course of dialysis (9000 units total). Stop 1 hour prior to end of treatment. To be administered per Policy [id number].Indications:Hypoalbumine bozena,Encounter for immunization,ESRD (end stage renal disease) ([facility]) Given 01/18/2023 7:10 EDT 9,000 Units nepro w/ carb steady bolus 237 mL 237 mL (1 Package), oral, ONCE IN DIALYSIS, 1 dose, On 01/18/23 at 0715, RoutineIndications:Hypoalbuminem ia,ESRD (end stage renal disease) ([facility]) Given 01/18/2023 7:28 EDT 237 mL documented in this encounter Orders Dialysis Count Last Ordered Date First Orde red Date HEMODIALYSIS 1 01/18/2023 documented in this encounter Care Teams Manager Environmental Health And Safety Relationship Specialty Start Date End Date Adeola Villegas APRN [address] [place] [address] PCP - General 10/12/16 07/06/23 documented as of this encounter
--- OUTSIDE RECORDS SUMMARY | 2024-12-05 12:29 | XMS_ITS | Encounter Summary ---
Author Organization [facility] Address [address] [place] [address] Care Team Providers Care Design Analyst Name Role Phone Adeola Villegas APRN Primary Care Provider [phone] Encounter Details Date Type Department Care Team (Late st Contact Info) Description 12/30/2022 7:[address] [facility] [address] [place], [place] [id number] Carlota Jin MD 1 [facility], Level 2 [place] [address] ESRD (end stage renal disease) ([facility]) (Primary Dx); Hypoalbuminemia; Encounter for [...] - Temperature - - Respiratory Rate 12 12/30/2022 1109 EST Oxygen Saturation - - Inhaled Oxygen Concentration - - Weight 88.4 kg (194 lb 14.2 oz) 12/30/2022 0652 EST Height - - Body Mass Index - - documented in this encounter Miscellaneous Notes * Flowsheet Note - Melissa Crespo RN - 12/30/2022 1501 EST 12/30/22 1109 Post-Hemodialysis Assessment Total Blood Processed (L) 88.47 Liters Dialyzer Clearance Lightly streaked Treatment UFR (ml:kg:hr) 6.86 ml:kg:hr Critline refill Negative (H1: 36.6 H2: 36.6) Fluid Removed (L) 2.5 L Post-Dialysis Scale Weight 86 kg (189 lb 9.5 oz) Wheelchair Weight 0 kg (0 lb) Prosthesis Weight 0 kg (0 lb) Post-Treatment Weight (kg) 86 Treatment Weight Change (kg) 2.4 kg Day Target Weight (kg) 86.4 Post Sitting/Lying BP 149/75 Post Sitting/Lying pulse 57 Post Standing BP 113/61 Post Standing Pulse 64 Temp 36.6 ??C (97.9 ??F) Temp src Temporal Resp 12 Post access assessment Bruit present: Yes Thrill Present AVF/AFG Hemostasis achieved Yes Note HOLD TIME: 10mins Orientation Alert and Oriented x3 Yes Cooperative Yes Disoriented No Discharge Ambulation Methods Ambulatory without assistance Wrap up items Patient Response to Treatment Tolerated tx. Removed 2500 UF goal. Stable upon DC from unit. Comments No issues during tx, No concerns voiced post tx. * Dialysis Rounding - Skye Gomez NP - 12/30/2022 0715 EST Dialysis Provider's Routine Assessment The visit was conducted via telehealth (audio/video) between the [facility] dialysis unit and the provider from their Home Office. The interaction was assisted by edenes. The patient has no complaints and no [...] None Changes to current prescriptions/orders: None No complaints or questions, Phosphorous elevated-manage per protocol Pre-dialysis potassium on Wednesday elevated will repeat, if he has persistent hyperkalemia we will order a potassium binder Skey Gomez NP documented in this encounter Plan of Treatment Upcoming Encounters Date Type Department Care Team (Late st Contact Info) Description 12/06/2024 6:45 EST Treatment [facility] [address] [place], [place] [id number] Carlota Jin MD [address] [place] [phone] 12/08/2024 6:45 EST Treatment [facility] [address] [place], [place] [phone] Carlota Jin MD [address] [place] [phone] 12/11/2024 6:45 EST Treatment [facility] [address] [place], [place] [id number] Carlota Jin MD [address] [place] [address] 2 [place] [phone] 12/13/2024 6:45 EST Treatment [facility] [address] [place], [place] [id number] Carlota Jin MD [address] [place] [address] 2 [place] [phone] 12/15/2024 6:45 EST Treatment [facility] [place] [address] [place], [place] [id number] Carlota Jin MD 1 [facility], [facility] 2 [place] [phone] 12/18/2024 6:45 EST Treatment [facility] [place] [address] [place], [place] [phone] Carlota Jin MD 1 [facility], [facility] 2 [place] [phone] 12/20/2024 6:45 EST Treatment [facility] [place] [address] [place], [place] [id number] Carlota Jin MD 1 [facility], [facility] 2 [place] [phone] 12/22/2024 6:45 EST Treatment [facility] [place] [address] [place], [place] [id number] Carlota Jin MD 1 [facility], [facility] 2 [place] [phone] 12/25/2024 6:45 EST Treatment [facility] [place] [address] [place], [place] [phone] Carlota Jin MD 1 [facility], [facility] 2 [place] [phone] 12/27/2024 6:45 EST Treatment [facility] [place] [address] [place] [address] Carlota Jin MD 1 [facility], [facility] 2 [place] [phone] 12/29/2024 6:45 EST Treatment [facility] [place] [address] [place], [place] [phone] Carlota Jin MD 1 [facility], [facility] 2 [place] [phone] 01/01/2025 6:45 EDT Treatment [facility] [place] [address] [place] [address] Carlota Jin MD 1 [facility], [address] [phone] 01/03/2025 6:45 EDT Treatment [facility] [place] [address] [place], [place] [phone] Carlota Jin MD 1 [facility], [address] [phone] 01/05/2025 6:45 EDT Treatment [facility] [place] [address] [place] [address] Carlota Jin MD 1 [facility], [facility] 2 [place] [phone] 01/08/2025 6:45 EDT Treatment [facility] [place] [address] [place], [place] [phone] Carlota Jin MD 1 [facility], [facility] 2 [place] [phone] 01/10/2025 6:45 EDT Treatment [facility] [place] [address] [place], [place] [phone] Carlota Jin MD 1 [facility], [facility] 2 [place] [phone] 01/12/2025 6:45 EDT Treatment [facility] [place] [address] [place], [place] [phone] Carlota Jin MD 1 [facility], [address] [phone] 01/15/2025 6:45 EDT Treatment [facility] [place] [address] [place], [place] [phone] Carlota Jin MD 1 [facility], [address] [phone] 01/17/2025 6:45 EDT Treatment [facility] [place] [address] [place], [place] [address] Carlota Jin MD 1 [facility], [facility] 2 [place] [phone] 01/19/2025 6:45 EDT Treatment [facility] [place] [address] [place], [place] [phone] Carlota Jin MD 1 [facility], [facility] 2 [place] [phone] 01/22/2025 6:45 EDT Treatment [facility] [place] [address] [place], [place] [address] Carlota Jin MD 1 [facility], [address] [phone] 01/24/2025 6:45 EDT Treatment [facility] [place] [address] [place] [address] Carlota Jin MD 1 [facility], [address] [phone] 01/26/2025 6:45 EDT Treatment [facility] [place] [address] [place], [place] [phone] Carlota Jin MD 1 [facility], [address] [phone] 01/29/2025 6:45 EDT Treatment [facility] [address] [place], [place] [phone] Carlota Jin MD 1 [facility], [address] [phone] 01/31/2025 6:45 EDT Treatment [facility] [place] [address] [place], [place] [phone] Carlota Jin MD 1 [facility], [address] [phone] 02/02/2025 6:45 EDT Treatment [facility] [place] [address] [place], [place] [id number] Carlota Jin MD 1 [facility], [facility] 2 [place] [phone] 02/05/2025 6:45 EDT Treatment [facility] [place] [address] [place], [place] [id number] Carlota Jin MD 1 [facility], [facility] 2 [place] [phone] 02/07/2025 6:45 EDT Treatment [facility] [place] [address] [place], [place] [phone] Carlota Jin MD 1 [facility], [address] [phone] 02/09/2025 6:45 EDT Treatment [facility] [place] [address] [place], [place] [phone] Carlota Jin MD [address] [place] [address], [address] [phone] 02/12/2025 6:45 EDT Treatment [facility] [place] [address] [place], [place] [phone] Carlota Jin MD 1 [facility], [facility] 2 [place] [phone] 02/14/2025 6:45 EDT Treatment [facility] [place] [address] [place], [place] [phone] Carlota Jin MD 1 [facility], [facility] 2 [place] [phone] 02/16/2025 6:45 EDT Treatment [facility] [place] [address] [place], [place] [phone] Carlota Jin MD 1 [facility], [facility] 2 [place] [phone] 02/19/2025 6:45 EDT Treatment [facility] [place] [address] [place], [place] [phone] Carlota Jin MD 1 [facility], [facility] 2 [place] [phone] 02/21/2025 6:45 EDT Treatment [facility] [place] [address] [place], [place] [phone] Carlota Jin MD 1 [facility], [facility] 2 [place] [phone] documented as of this encounter Procedures Procedure Name Priority Date/Time Associated Diagnosis Comments COMPLETE BLOOD COUNT Routine 12/30/2022 7:06 EST Hypoalbuminemia Encounter for immunization ESRD (end stage renal disease) ([facility]) HEMODIALYSIS Routine 12/30/2022 6:56 EST ESRD (end stage renal disease) ([facility]) documented in this encounter Results * (ABNORMAL) COMPLETE BLOOD COUNT (12/30/2022 7:06 EST) WBC 8.03 4.00 - 10.40 K/cmm 12/30/2022 21:58 EST [facility] RBC 3.53(L) 4.36 - 5.78 M/cmm 12/30/2022 21:58 EST [facility] Hemoglobin 11.2(L) 13.8 - 17.3 gm/dL 12/30/2022 21:58 EST [facility] HCT 34.2(L) 39.5 - 50.2 % 12/30/2022 21:58 [facility] MCV 97(H) 81 - 95 fl 12/30/2022 21:58 [facility] MCH 31.7 27.6 - 33.0 pg 12/30/2022 21:58 [facility] MCHC 32.7(L) 32.8 - 36.4 gm/dL 12/30/2022 21:58 [facility] RDW-CV 13.2 <14.2 % 12/30/2022 21:58 [facility] RDW-SD 47.0(H) <46.0 fl 12/30/2022 21:58 [facility] PLT 292 141 - 377 K/cmm 12/30/2022 21:58 [facility] MPV 11.8 9.5 - 12.7 fl 12/30/2022 21:58 [facility] Blood VENOUS BLOOD / Unknown Venipuncture / Unknown 12/30/2022 7:06 EST 12/30/2022 7:06 EST us Carlota Jin MD HEMATOLOGY & PF4 ORDERABL ES Final Result [facility] [address] [phone] documented in this encounter Visit Diagnoses Diagnosis [...] intravenous, ONCE IN DIALYSIS, 1 dose, On Wed12/30/22 at 0715, Routine, DialysisIndications:Hypoalbumine bozena,Encounter for immunization,ESRD (end stage renal disease) ([facility]) Given 12/30/2022 8:11 EST 500 Units heparin injection 9,000 Units 9,000 Units, intravenous, ONCE IN DIALYSIS, 1 dose, On Wed12/30/22 at 0715, Routine, Dialysis, Now x1 bolus 4500 units to be given at the beginning of dialysis 1500 units/hour to be given over the course of dialysis (9000 units total). Stop 1 hour prior to end of treatment. To be administered per Policy [id number].Indications:Hypoalbumine bozena,Encounter for immunization,ESRD (end stage renal disease) ([facility]) Given 12/30/2022 7:05 EST 9,000 Units documented in this encounter Orders Medications Ordered That Davide ht Not Have Been Administered Count Last Ordered Date First Ordered Date protein bar 1 Bar 1 12/30/2022 Dialysis Count Last Ordered Date First Orde red Date HEMODIALYSIS 1 12/30/2022 documented in this encounter Care Teams Design Analyst Relationship Specialty Start Date End Date Adeola Villegas APRN [address] [place] [address] PCP - General 10/12/16 07/06/23 documented as of this encounter
--- OUTSIDE RECORDS SUMMARY | 2024-12-05 12:29 | XMS_ITS | Encounter Summary ---
Author Organization [facility] Address [address] [place] [address] Care Team Providers Care Utility Inspector Name Role Phone Adeola Villegas APRN Primary Care Provider [phone] Encounter Details Date Type Department Care Team (Late Contact Info) Description 12/30/2022 Orders Only [facility] Dialysis - [facility] [address] [place] [address] [address], [address] [place] [address] Social History Tobacco Use Types Packs/Day Years [...] EST Treatment [facility] [place] [address] [place] [id number] Carlota Jin MD 1 [facility], Level [address] [place] [phone] 12/08/2024 6:45 EST Treatment [facility] [place] [address] [place] [address] Carlota Jin MD 1 [facility], [facility] 2 [place] [phone] 12/11/2024 6:45 EST Treatment [facility] [place] [address] [place], [place] [phone] Carlota Jin MD 1 [facility], [facility] 2 [place] [phone] 12/13/2024 6:45 EST Treatment [facility] [place] [address] [place], [place] [phone] Carlota Jin MD 1 [facility], [facility] 2 [place] [phone] 12/15/2024 6:45 EST Treatment [facility] [place] [address] [place], [place] [phone] Carlota Jin MD 1 [facility], [facility] 2 [place] [phone] 12/18/2024 6:45 EST Treatment [facility] [address] [place], [place] [phone] Carlota Jin MD 1 [facility], [facility] 2 [place] [phone] 12/20/2024 6:45 EST Treatment [facility] [address] [place], [place] [phone] Carlota Jin MD 1 [facility], [facility] 2 [place] [phone] 12/22/2024 6:45 EST Treatment [facility] [place] [address] [place], [place] [phone] Carlota Jin MD 1 [facility], [facility] 2 [place] [phone] 12/25/2024 6:45 EST Treatment [facility] [place] [address] [place], [place] [id number] Carlota Jin MD 1 [facility], [facility] 2 [place] [phone] 12/27/2024 6:45 EST Treatment [facility] [place] [address] [place], [place] [id number] Carlota Jin MD 1 [facility], [facility] 2 [place] [phone] 12/29/2024 6:45 EST Treatment [facility] [place] [address] [place], [place] [id number] Carlota Jin MD 1 [facility], [facility] 2 [place] [phone] 01/01/2025 6:45 EDT Treatment [facility] [place] [address] [place], [place] [id number] Carlota Jin MD 1 [facility], [facility] 2 [place] [phone] 01/03/2025 6:45 EDT Treatment [facility] [place] [address] [place], [place] [id number] Carolta Jin MD 1 [facility], [facility] 2 [place] [phone] 01/05/2025 6:45 EDT Treatment [facility] [place] [address] [place], [place] [address] Carlota Jin MD 1 [facility], [facility] 2 [place] [phone] 01/08/2025 6:45 EDT Treatment [facility] - [place] [address] [place], [place] [id number] Carlota Jin MD 1 [facility], [facility] 2 [place] [phone] 01/10/2025 6:45 EDT Treatment [facility] [place] [address] [place], [place] [address] Carlota Jin MD 1 [facility], [facility] 2 [place] [phone] 01/12/2025 6:45 EDT Treatment [facility] [place] [address] [place] [address] Carlota Jin MD 1 [facility], [facility] 2 [place] [phone] 01/15/2025 6:45 EDT Treatment [facility] - [place] [address] [place], [place] [address] Carlota Jin MD 1 [facility], [facility] 2 [place] [phone] 01/17/2025 6:45 EDT Treatment [facility] - [place] [address] [place], [place] [id number] Carlota Jin MD 1 [facility], [facility] 2 [place] [phone] 01/19/2025 6:45 EDT Treatment [facility] - [place] [address] [place], [place] [id number] Carlota Jin MD 1 [facility], [facility] 2 [place] [phone] 01/22/2025 6:45 EDT Treatment [facility] - [place] [address] [place], [place] [id number] Carlota Jin MD 1 [facility], [facility] 2 [place] [phone] 01/24/2025 6:45 EDT Treatment [facility] [place] [address] [place], [place] [id number] Carlota Jin MD 1 [facility], [facility] 2 [place] [phone] 01/26/2025 6:45 EDT Treatment [facility] - [place] [address] [place], [place] [id number] Carlota Jin MD 1 [facility], [facility] 2 [place] [phone] 01/29/2025 6:45 EDT Treatment [facility] - [place] [address] [place], [place] [id number] Carlota Jin MD 1 [facility], [facility] 2 [place] [phone] 01/31/2025 6:45 EDT Treatment [facility] - [place] [address] [place], [place] [id number] Carlota Jin MD 1 [facility], [facility] 2 [place] [phone] 02/02/2025 6:45 EDT Treatment [facility] - [place] [address] [place], [place] [id number] Carlota Jin MD 1 [facility], [facility] 2 [place] [phone] 02/05/2025 6:45 EDT Treatment [facility] - [place] [address] [place], [place] [id number] Carlota Jin MD 1 [facility], [facility] 2 [place] [phone] 02/07/2025 6:45 EDT Treatment [facility] [address] [place], [place] [id number] Carlota Jin MD 1 [facility], [facility] 2 [place] [phone] 02/09/2025 6:45 EDT Treatment [facility] - [place] [address] [place], [place] [id number] Carlota Jin MD 1 [facility], [facility] 2 [place] [phone] 02/12/2025 6:45 EDT Treatment [facility] - [place] [address] [place], [place] [id number] Carlota Jin MD 1 [facility], [address] [phone] 02/14/2025 6:45 EDT Treatment [facility] - [place] [address] [place], [place] [id number] Carlota Jin MD 1 [facility], [address] [phone] 02/16/2025 6:45 EDT Treatment [facility] - [place] [address] [place], [place] [id number] Carlota Jin MD [address] [place] [phone] 02/19/2025 6:45 EDT Treatment [facility] - [place] [address] [place], [place] [id number] Carlota Jin MD [address] [phone] 02/21/2025 6:45 EDT Treatment [facility] [address] [place], [place] [id number] Carlota Jin MD 1 [facility], [address] [phone] documented as of this encounter Visit Diagnoses Not on filedocumented in this encounter Care Teams Utility Inspector Relationship Specialty Start Date End Date Adeola Villegas APRN [address] [place] [address] PCP - General 10/12/16 07/06/23 documented as of this encounter
--- OUTSIDE RECORDS SUMMARY | 2024-12-05 12:29 | XMS_ITS | Encounter Summary ---
Author Organization [facility] Address [address] [place] [address] Care Team Providers Care Spray Gun Striper Name Role Phone Adeola Villegas APRN Primary Care Provider [phone] Encounter Details Date Type Department Care Team (Late st Contact Info) Description 01/13/2023 7:15 EDT Treatment [facility] [address] [place], [place] [phone] Carlota Jin MD 1 [facility], [address] [place] [address] ESRD (end stage renal disease) ([facility]) (Primary Dx); Hypoalbuminemia; Encounter for immunization [...] - Temperature - - Respiratory Rate 18 01/13/2023 1117 EDT Oxygen Saturation - - Inhaled Oxygen Concentration - - Weight 90.8 kg (200 lb 2.8 oz) 01/13/2023 0700 E DT Height - - Body Mass Index - - documented in this encounter Miscellaneous Notes * Flowsheet Note - Melissa Crespo RN - 01/13/2023 1434 EDT 01/13/23 1117 Post-Hemodialysis Assessment Total Blood Processed (L) 89.58 Liters Dialyzer Clearance Lightly streaked Treatment UFR (ml:kg:hr) 9.39 ml:kg:hr Critline refill Not done Fluid Removed (L) 3.8 L Post-Dialysis Scale Weight 87.5 kg (192 lb 14.4 oz) Wheelchair Weight 0 kg (0 lb) Prosthesis Weight 0 kg (0 lb) Post-Treatment Weight (kg) 87.5 Treatment Weight Change (kg) 3.3 kg Day Target Weight (kg) 87.5 Post Sitting/Lying BP 142/75 Post Sitting/Lying pulse 60 Post Standing BP 123/67 Post Standing Pulse 70 Temp 35.9 ??C (96.6 ??F) Temp src Temporal Resp 18 Post access assessment Bruit present: Yes Thrill Present AVF/AFG Hemostasis achieved Yes Note 10 minute hold with blue clamps Orientation Alert and Oriented x3 Yes Cooperative Yes Disoriented No Discharge Ambulation Methods Ambulatory without assistance Wrap up items Patient Response to Treatment Tolerated tx. Removed 3800 UF goal. Stable upon DC from unit. Comments No issues during tx, No concerns voiced post tx. * Dialysis Rounding - Skye Gomez NP - 01/13/2023 0715 EDT Dialysis Provider's Routine Assessment Gerson Bruner was seen and examined as appropriate during Dialysis. Pertinent lab results were reviewed. Changes since last visit: None Changes to current prescriptions/orders: None No acute issues. Skye Gomez NP documented in this encounter Plan of Treatment Upcoming Encounters Date Type Department Care Team (Late st Contact Info) Description 12/06/2024 6:45 EST Treatment [facility] [address] [place] [address] Carlota Jin MD 1 [facility], [address] [place] [address] 12/08/2024 6:45 EST Treatment [facility] [address] [place], [place] [phone] Carlota Jin MD 1 [facility], [facility] [place] [phone] 12/11/2024 6:45 EST Treatment [facility] [address] [place], [place] [phone] Carlota Jin MD 1 [facility], [facility] [place] [phone] 12/13/2024 6:45 EST Treatment [facility] [address] [place], [place] [address] Carlota Jin MD 1 [facility], [facility] [place] [phone] 12/15/2024 6:45 EST Treatment [facility] [address] [place] [address] Carlota Jin MD 1 [facility], [facility] [place] [phone] 12/18/2024 6:45 EST Treatment [facility] [place] [address] [place], [place] [phone] Carlota Jin MD 1 [facility], [facility] [place] [phone] 12/20/2024 6:45 EST Treatment [facility] [address] [place], [place] [phone] Carlota Jin MD 1 [facility], [facility] [place] [phone] 12/22/2024 6:45 EST Treatment [facility] [address] [place], [place] [phone] Carlota Jin MD 1 [facility], [facility] [place] [phone] 12/25/2024 6:45 EST Treatment [facility] [address] [place], [place] [phone] Carlota Jin MD 1 [facility], [facility] [place] [phone] 12/27/2024 6:45 EST Treatment [facility] [address] [place], [place] [phone] Carlota Jin MD 1 [facility], [facility] [place] [phone] 12/29/2024 6:45 EST Treatment [facility] [address] [place] [address] Carlota Jin MD 1 [facility], [facility] [place] [phone] 01/01/2025 6:45 EDT Treatment [facility] [address] [place], [place] [phone] Carlota Jin MD 1 [facility], [facility] [place] [phone] 01/03/2025 6:45 EDT Treatment [facility] [address] [place], [place] [address] Carlota Jin MD 1 [facility], [facility] [place] [phone] 01/05/2025 6:45 EDT Treatment [facility] [address] [place] [address] Carlota Jin MD 1 [facility], [address] [phone] 01/08/2025 6:45 EDT Treatment [facility] [address] [place], [place] [phone] Carlota Jin MD 1 [facility], [facility] [place] [phone] 01/10/2025 6:45 EDT Treatment [facility] [address] [place], [place] [address] Carlota Jin MD 1 [facility], [facility] [place] [phone] 01/12/2025 6:45 EDT Treatment [facility] [address] [place], [place] [phone] Carlota Jin MD 1 [facility], [facility] [place] [phone] 01/15/2025 6:45 EDT Treatment [facility] [address] [place], [place] [address] Carlota Jin MD 1 [facility], [facility] [place] [phone] 01/17/2025 6:45 EDT Treatment [facility] [address] [place], [place] [phone] Carlota Jin MD 1 [facility], [address] [phone] 01/19/2025 6:45 EDT Treatment [facility] [address] [place], [place] [phone] Carlota Jin MD 1 [facility], [address] [phone] 01/22/2025 6:45 EDT Treatment [facility] [address] [place], [place] [phone] Carlota Jin MD [address] [phone] 01/24/2025 6:45 EDT Treatment [facility] [address] [place], [place] [phone] Carlota Jin MD [address] [phone] 01/26/2025 6:45 EDT Treatment [facility] [address] [place], [place] [phone] Carlota Jin MD 1 [facility], [facility] [place] [phone] 01/29/2025 6:45 EDT Treatment [facility] [address] [place], [place] [phone] Carlota Jin MD 1 [facility], [facility] [place] [phone] 01/31/2025 6:45 EDT Treatment [facility] [address] [place], [place] [phone] Carlota Jin MD 1 [facility], [facility] [place] [phone] 02/02/2025 6:45 EDT Treatment [facility] [address] [place], [place] [phone] Carlota Jin MD 1 [facility], [address] [phone] 02/05/2025 6:45 EDT Treatment [facility] [address] [place] [address] Carlota Jin MD 1 [facility], [facility] [place] [phone] 02/07/2025 6:45 EDT Treatment [facility] [address] [place], [place] [phone] Carlota Jin MD 1 [facility], [facility] [place] [phone] 02/09/2025 6:45 EDT Treatment [facility] [address] [place], [place] [phone] Carlota Jin MD 1 [facility], [address] [phone] 02/12/2025 6:45 EDT Treatment [facility] [address] [place], [place] [phone] Carlota Jin MD 1 [facility], [address] [phone] 02/14/2025 6:45 EDT Treatment [facility] [address] [place], [place] [phone] Carlota Jin MD 1 [facility], [address] [phone] 02/16/2025 6:45 EDT Treatment [facility] [address] [place], [place] [phone] Carlota Jin MD 1 [facility], [address] [phone] 02/19/2025 6:45 EDT Treatment [facility] [address] [place], [place] [phone] Carlota Jin MD [address] [place] [address], [address] [phone] 02/21/2025 6:45 EDT Treatment [facility] [address] [place], [place] [phone] Carlota Jin MD 1 [facility], [address] [place] [phone] documented as of this encounter Procedures Procedure Name Priority Date/Time Associated Diagnosis Comments COMPLETE BLOOD COUNT Routine 01/13/2023 7:15 EDT Hypoalbuminemia Encounter for immunization ESRD (end stage renal disease) ([facility]) HEMODIALYSIS Routine 01/13/2023 7:00 EDT ESRD (end stage renal disease) ([facility]) documented in this encounter Results * (ABNORMAL) COMPLETE BLOOD COUNT (01/13/2023 7:15 EDT) WBC 7.00 4.00 - 10.40 K/cmm 01/13/2023 22:21 [facility] RBC 3.44(L) 4.36 - 5.78 M/cmm 01/13/2023 22:21 [facility] Hemoglobin 11.0(L) 13.8 - 17.3 gm/dL 01/13/2023 22:21 [facility] HCT 33.7(L) 39.5 - 50.2 % 01/13/2023 22:21 [facility] MCV 98(H) 81 - 95 fl 01/13/2023 22:21 [facility] MCH 32.0 27.6 - 33.0 pg 01/13/2023 22:21 [facility] MCHC 32.6(L) 32.8 - 36.4 gm/dL 01/13/2023 22:21 [facility] RDW-CV 13.0 <14.2 % 01/13/2023 22:21 [facility] RDW-SD 46.2(H) <46.0 fl 01/13/2023 22:21 [facility] PLT 270 141 - 377 K/cmm 01/13/2023 22:21 [facility] MPV 11.6 9.5 - 12.7 fl 01/13/2023 22:21 EDT [facility] Blood VENOUS BLOOD / Unknown Venipuncture / Unknown 01/13/2023 7:15 EDT 01/13/2023 7:15 EDT us Carlota Jin MD HEMATOLOGY & PF4 ORDERABL ES Final Result [facility] [address] [place] [address] documented in this encounter Visit Diagnoses Diagnosis ESRD (end stage renal disease) ([facility])- Primary End stage renal disease Hypoalbuminemia [...] intravenous, ONCE IN DIALYSIS, 1 dose, On Wed01/13/23 at 0730, Routine, Dialysis, Now x1 bolus 4500 units to be given at the beginning of dialysis 1500 units/hour to be given over the course of dialysis (9000 units total). Stop 1 hour prior to end of treatment. To be administered per Policy [id number].Indications:Hypoalbumine bozena,Encounter for immunization,ESRD (end stage renal disease) ([facility]) Given 01/13/2023 7:16 EDT 9,000 Units nepro w/ carb steady bolus 237 mL 237 mL (1 Package), oral, ONCE IN DIALYSIS, 1 dose, On Wed01/13/23 at 0730, RoutineIndications:Hypoalbuminem ia,ESRD (end stage renal disease) ([facility]) Given 01/13/2023 8:05 EDT 237 mL documented in this encounter Orders Dialysis Count Last Ordered Date First Orde red Date HEMODIALYSIS 1 01/13/2023 documented in this encounter Care Teams Spray Gun Striper Relationship Specialty Start Date End Date Adeola Villegas APRN [address] [place] [address] PCP - General 10/12/16 07/06/23 documented as of this encounter
--- OUTSIDE RECORDS SUMMARY | 2024-12-05 12:29 | XMS_ITS | Encounter Summary ---
Author Organization [facility] Address [address] [place] [address] Care Team Providers Care Casting Operator Name Role Phone Adeola Villegas APRN Primary Care Provider [phone] Encounter Details Date Type Department Care Team (Late st Contact Info) Description 01/06/2023 7:15 EDT Treatment [facility] [address] [place], [place] [phone] Carlota Jin MD 1 [facility], Level 2 [place] [address] ESRD (end stage renal disease) ([facility]) (Primary Dx); Hypoalbuminemia; Encounter for immunization Social [...] - Temperature - - Respiratory Rate 16 01/06/2023 0648 EDT Oxygen Saturation - - Inhaled Oxygen Concentration - - Weight 91.7 kg (202 lb 2.6 oz) 01/06/2023 0653 E DT Height - - Body Mass Index - - documented in this encounter Miscellaneous Notes * Flowsheet Note - Marcela Cox RN - 01/06/2023 1226 EDT 01/06/23 1107 Post-Hemodialysis Assessment Total Blood Processed (L) 89.12 Liters Dialyzer Clearance Lightly streaked Treatment UFR (ml:kg:hr) 11.36 ml:kg:hr Critline refill Not done Fluid Removed (L) 4.5 L Post-Dialysis Scale Weight 87.7 kg (193 lb 5.5 oz) Wheelchair Weight 0 kg (0 lb) Prosthesis Weight 0 kg (0 lb) Post-Treatment Weight (kg) 87.7 Treatment Weight Change (kg) 4 kg Day Target Weight (kg) 87.7 Post Sitting/Lying BP 159/84 Post Sitting/Lying pulse 60 Post Standing BP 137/74 Post Standing Pulse 69 Temp 36.4 ??C [...] Description 12/06/2024 6:45 EST Treatment [facility] [address] [place], [place] [phone] Carlota Jin MD [address] [place] [address], [facility] [address] [place] [phone] 12/08/2024 6:45 EST Treatment [facility] [address] [place], [place] [phone] Carlota Jin MD [address] [place] [address], [facility] [address] [place] [phone] 12/11/2024 6:45 EST Treatment [facility] [place] [address] [place], [place] [address] Carlota Jin MD 1 [facility], [facility] [address] [place] [phone] 12/13/2024 6:45 EST Treatment [facility] [place] [address] [place] [address] Carlota Jin MD 1 [facility], [facility] [address] [place] [phone] 12/15/2024 6:45 EST Treatment [facility] [place] [address] [place], [place] [id number] Carlota Jin MD 1 [facility], [address] [phone] 12/18/2024 6:45 EST Treatment [facility] [place] [address] [place], [place] [phone] Carlota Jin MD 1 [facility], [address] [phone] 12/20/2024 6:45 EST Treatment [facility] [place] [address] [place], [place] [phone] Carlota Jin MD 1 [facility], [facility] 2 [place] [phone] 12/22/2024 6:45 EST Treatment [facility] [place] [address] [place], [place] [id number] Carlota Jin MD 1 [facility], [facility] 2 [place] [phone] 12/25/2024 6:45 EST Treatment [facility] [place] [address] [place], [place] [id number] Carlota Jin MD 1 [facility], [facility] 2 [place] [phone] 12/27/2024 6:45 EST Treatment [facility] [place] [address] [place], [place] [id number] Carlota Jin MD 1 [facility], [facility] 2 [place] [phone] 12/29/2024 6:45 EST Treatment [facility] [place] [address] [place] [address] Carlota Jin MD 1 [facility], [facility] 2 [place] [phone] 01/01/2025 6:45 EDT Treatment [facility] [place] [address] [place], [place] [address] Carlota Jin MD 1 [facility], [facility] 2 [place] [phone] 01/03/2025 6:45 EDT Treatment [facility] [place] [address] [place], [place] [phone] Carlota Jin MD 1 [facility], [facility] 2 [place] [phone] 01/05/2025 6:45 EDT Treatment [facility] [place] [address] [place], [place] [address] Carlota Jin MD 1 [facility], [facility] 2 [place] [phone] 01/08/2025 6:45 EDT Treatment [facility] [place] [address] [place], [place] [phone] Carlota Jin MD 1 [facility], [address] [phone] 01/10/2025 6:45 EDT Treatment [facility] [place] [address] [place], [place] [phone] Carlota Jin MD 1 [facility], [address] [phone] 01/12/2025 6:45 EDT Treatment [facility] [place] [address] [place], [place] [phone] Carlota Jin MD [address] [phone] 01/15/2025 6:45 EDT Treatment [facility] [place] [address] [place], [place] [id number] Carlota Jin MD [address] [phone] 01/17/2025 6:45 EDT Treatment [facility] [place] [address] [place], [place] [phone] Carlota Jin MD 1 [facility], [facility] 2 [place] [phone] 01/19/2025 6:45 EDT Treatment [facility] [place] [address] [place], [place] [phone] Carlota Jin MD 1 [facility], [facility] 2 [place] [phone] 01/22/2025 6:45 EDT Treatment [facility] [place] [address] [place], [place] [phone] Carlota Jin MD 1 [facility], [facility] 2 [place] [phone] 01/24/2025 6:45 EDT Treatment [facility] [place] [address] [place], [place] [phone] Carlota Jin MD 1 [facility], [address] [phone] 01/26/2025 6:45 EDT Treatment [facility] [place] [address] [place] [address] Carlota Jin MD 1 [facility], [facility] 2 [place] [phone] 01/29/2025 6:45 EDT Treatment [facility] [place] [address] [place], [place] [phone] Carlota Jin MD 1 [facility], [facility] 2 [place] [phone] 01/31/2025 6:45 EDT Treatment [facility] [place] [address] [place], [place] [phone] Carlota Jin MD 1 [facility], [address] [phone] 02/02/2025 6:45 EDT Treatment [facility] [place] [address] [place], [place] [phone] Carlota Jin MD 1 [facility], [address] [phone] 02/05/2025 6:45 EDT Treatment [facility] [place] [address] [place], [place] [phone] Carlota Jin MD 1 [facility], [address] [phone] 02/07/2025 6:45 EDT Treatment [facility] [place] [address] [place], [place] [phone] Carlota Jin MD 1 [facility], [address] [phone] 02/09/2025 6:45 EDT Treatment [facility] [place] [address] [place], [place] [phone] Carlota Jin MD [address] [place] [address], [address] [phone] 02/12/2025 6:45 EDT Treatment [facility] [place] [address] [place], [place] [phone] Carlota Jin MD 1 [facility], [facility] 2 [place] [phone] 02/14/2025 6:45 EDT Treatment [facility] [place] [address] [place], [place] [phone] Carlota Jin MD 1 [facility], [facility] 2 [place] [phone] 02/16/2025 6:45 EDT Treatment [facility] [address] [place], [place] [phone] Carlota Jin MD 1 [facility], [address] [phone] 02/19/2025 6:45 EDT Treatment [facility] [place] [address] [place], [place] [phone] Carlota Jin MD 1 [facility], [facility] 2 [place] [phone] 02/21/2025 6:45 EDT Treatment [facility] [address] [place], [place] [phone] Carlota Jin MD 1 [facility], [facility] 2 [place] [phone] documented as of this encounter Procedures Procedure Name Priority Date/Time Associated Diagnosis Comments COMPLETE BLOOD COUNT Routine 01/06/2023 6:56 EDT Hypoalbuminemia Encounter for immunization ESRD (end stage renal disease) ([facility]) HEMODIALYSIS Routine 01/06/2023 6:53 EDT ESRD (end stage renal disease) ([facility]) documented in this encounter Results * (ABNORMAL) COMPLETE BLOOD COUNT (01/06/2023 6:56 EDT) WBC 8.14 4.00 - 10.40 K/cmm 01/06/2023 21:20 [facility] RBC 3.30(L) 4.36 - 5.78 M/cmm 01/06/2023 21:20 [facility] Hemoglobin 10.4(L) 13.8 - 17.3 gm/dL 01/06/2023 21:20 [facility] HCT 32.3(L) 39.5 - 50.2 % 01/06/2023 21:20 [facility] MCV 98(H) 81 - 95 fl 01/06/2023 21:20 [facility] MCH 31.5 27.6 - 33.0 pg 01/06/2023 21:20 [facility] MCHC 32.2(L) 32.8 - 36.4 gm/dL 01/06/2023 21:20 [facility] RDW-CV 13.2 <14.2 % 01/06/2023 21:20 [facility] RDW-SD 47.9(H) <46.0 fl 01/06/2023 21:20 [facility] PLT 264 141 - 377 K/cmm 01/06/2023 21:20 [facility] MPV 11.5 9.5 - 12.7 fl 01/06/2023 21:20 [facility] Blood VENOUS BLOOD / Unknown Venipuncture / Unknown 01/06/2023 6:56 EDT 01/06/2023 6:56 EDT us Carlota Jin MD HEMATOLOGY & PF4 ORDERABL ES Final Result [facility] [address] [place] [address] documented in this encounter Visit Diagnoses Diagnosis ESRD (end stage renal disease) ([facility])- Primary End stage renal disease Hypoalbuminemia [...] intravenous, ONCE IN DIALYSIS, 1 dose, On Wed01/06/23 at 0715, Routine, Dialysis, Now x1 bolus 4500 units to be given at the beginning of dialysis 1500 units/hour to be given over the course of dialysis (9000 units total). Stop 1 hour prior to end of treatment. To be administered per Policy [id number].Indications:Hypoalbumine bozena,Encounter for immunization,ESRD (end stage renal disease) ([facility]) Given 01/06/2023 7:10 EDT 9,000 Units nepro w/ carb steady bolus 237 mL 237 mL (1 Package), oral, ONCE IN DIALYSIS, 1 dose, On Wed01/06/23 at 0715, RoutineIndications:Hypoalbuminem ia,ESRD (end stage renal disease) ([facility]) Given 01/06/2023 7:24 EDT 237 mL documented in this encounter Orders Dialysis Count Last Ordered Date First Orde red Date HEMODIALYSIS 1 01/06/2023 documented in this encounter Care Teams Casting Operator Relationship Specialty Start Date End Date Adeola Villegas APRN [address] [place] [address] PCP - General 10/12/16 07/06/23 documented as of this encounter
--- OUTSIDE RECORDS SUMMARY | 2024-12-05 12:29 | XMS_ITS | Encounter Summary ---
Author Organization [facility] Address [address] [place] [address] Care Team Providers Care Street Sweeper Name Role Phone Adeola Villegas MONA Primary Care Provider [phone] Encounter Details Date Type Department Care Team (Late st Contact Info) Description 01/11/2023 7:15 EDT Treatment [facility] [address] [place], [place] [id number] Carlota Jin MD 1 [facility], Level [address] [place] [address] ESRD (end stage renal disease) ([facility]) (Primary Dx); Hypoalbuminemia; Encounter for immunization [...] - Temperature - - Respiratory Rate 18 01/11/2023 1119 EDT Oxygen Saturation - - Inhaled Oxygen Concentration - - Weight 90.6 kg (199 lb 11.8 oz) 01/11/2023 0703 EDT Height - - Body Mass Index - - documented in this encounter Miscellaneous Notes * Flowsheet Note - Melissa Crespo RN - 01/11/2023 1635 EDT 01/11/23 1119 Post-Hemodialysis Assessment Total Blood Processed (L) 89.13 Liters Dialyzer Clearance Lightly streaked Treatment UFR (ml:kg:hr) 10.26 ml:kg:hr Critline refill Not done Fluid Removed (L) 3.7 L Post-Dialysis Scale Weight 87 kg (191 lb 12.8 oz) Wheelchair Weight 0 kg (0 lb) Prosthesis Weight 0 kg (0 lb) Post-Treatment Weight (kg) 87 Treatment Weight Change (kg) 3.6 kg Day Target Weight (kg) 87.1 Post Sitting/Lying BP 136/73 Post Sitting/Lying pulse 62 Post Standing BP 97/54 Post Standing Pulse 69 Temp 36.2 ??C (97.2 ??F) Temp src Temporal Resp 18 Post access assessment Bruit present: Yes Thrill Present AVF/AFG Hemostasis achieved Yes Note 10 minute hold with blue clamps Orientation Alert and Oriented x3 Yes Cooperative Yes Disoriented No Discharge Ambulation Methods Ambulatory without assistance Wrap up items Patient Response to Treatment SBP in low 90s at third hour of tx. UF goal adjusted as needed. Removed 3700 / 4000 UF goal. Stable upon DC from unit. Comments No concerns voiced post tx. documented in this encounter Plan of Treatment Upcoming Encounters Date Type Department Care Team (Late st Contact Info) Description 12/06/2024 6:45 EST Treatment [facility] [address] [place], [place] [id number] Carlota Jin MD [address] [place] [address], [facility] [address] [place] [phone] 12/08/2024 6:45 EST Treatment [facility] [address] [place], [place] [id number] Carlota Jin MD [address] [place] [address], [facility] [address] [place] [phone] 12/11/2024 6:45 EST Treatment [facility] [place] [address] [place], [place] [id number] Carlota Jin MD 1 [facility], [facility] [address] [place] [phone] 12/13/2024 6:45 EST Treatment [facility] [place] [address] [place], [place] [phone] Carlota Jin MD 1 [facility], [facility] [address] [place] [phone] 12/15/2024 6:45 EST Treatment [facility] [place] [address] [place], [place] [phone] Carlota Jin MD 1 [facility], [facility] [address] [place] [phone] 12/18/2024 6:45 EST Treatment [facility] [place] [address] [place], [place] [phone] Carlota Jin MD [address] [place] [address], [facility] [address] [place] [phone] 12/20/2024 6:45 EST Treatment [facility] [place] [address] [place], [place] [id number] Carlota Jin MD 1 [facility], [facility] [address] [place] [phone] 12/22/2024 6:45 EST Treatment [facility] [place] [address] [place], [place] [id number] Carlota Jin MD 1 [facility], [facility] [address] [place] [phone] 12/25/2024 6:45 EST Treatment [facility] [address] [place], [place] [address] Carlota Jin MD 1 [facility], [facility] [address] [place] [phone] 12/27/2024 6:45 EST Treatment [facility] [address] [place], [place] [phone] Carlota Jin MD 1 [facility], [facility] [address] [place] [phone] 12/29/2024 6:45 EST Treatment [facility] [address] [place] [address] Carlota Jin MD 1 [facility], [facility] [address] [place] [phone] 01/01/2025 6:45 EDT Treatment [facility] [address] [place] [address] Carlota Jin MD 1 [facility], [facility] [address] [place] [phone] 01/03/2025 6:45 EDT Treatment [facility] [address] [place], [place] [phone] Carlota Jin MD 1 [facility], [facility] [address] [place] [phone] 01/05/2025 6:45 EDT Treatment [facility] [place] [address] [place], [place] [phone] Carlota Jin MD 1 [facility], [facility] [address] [place] [phone] 01/08/2025 6:45 EDT Treatment [facility] [place] [address] [place], [place] [id number] Carlota Jin MD 1 [facility], [facility] [address] [place] [phone] 01/10/2025 6:45 EDT Treatment [facility] [place] [address] [place], [place] [phone] Carlota Jin MD [address] [place] [address], [facility] [address] [place] [phone] 01/12/2025 6:45 EDT Treatment [facility] [place] [address] [place], [place] [phone] Carlota Jin MD [address] [place] [address], [facility] [address] [place] [phone] 01/15/2025 6:45 EDT Treatment [facility] [place] [address] [place], [place] [phone] Carlota Jin MD 1 [facility], [facility] [address] [place] [phone] 01/17/2025 6:45 EDT Treatment [facility] [place] [address] [place], [place] [phone] Carlota Jin MD 1 [facility], [facility] [address] [place] [phone] 01/19/2025 6:45 EDT Treatment [facility] [place] [address] [place], [place] [phone] Carlota Jin MD 1 [facility], [facility] [address] [place] [phone] 01/22/2025 6:45 EDT Treatment [facility] [place] [address] [place] [address] Carlota Jin MD 1 [facility], [address] [phone] 01/24/2025 6:45 EDT Treatment [facility] [place] [address] [place], [place] [phone] Carlota Jin MD 1 [facility], [address] [phone] 01/26/2025 6:45 EDT Treatment [facility] [place] [address] [place] [address] Carlota Jin MD 1 [facility], [facility] [address] [place] [phone] 01/29/2025 6:45 EDT Treatment [facility] [place] [address] [place], [place] [phone] Carlota Jin MD 1 [facility], [facility] [address] [place] [phone] 01/31/2025 6:45 EDT Treatment [facility] [place] [address] [place], [place] [address] Carlota Jin MD 1 [facility], [facility] [address] [place] [phone] 02/02/2025 6:45 EDT Treatment [facility] [place] [address] [place], [place] [address] Carlota Jin MD 1 [facility], [facility] [address] [place] [phone] 02/05/2025 6:45 EDT Treatment [facility] [place] [address] [place] [address] Carlota Jin MD 1 [facility], [address] [phone] 02/07/2025 6:45 EDT Treatment [facility] [place] [address] [place], [place] [address] Carlota Jin MD 1 [facility], [facility] [address] [place] [phone] 02/09/2025 6:45 EDT Treatment [facility] [place] [address] [place], [place] [phone] Carlota Jin MD 1 [facility], [facility] [address] [place] [phone] 02/12/2025 6:45 EDT Treatment [facility] [place] [address] [place], [place] [address] Carlota Jin MD 1 [facility], [address] [phone] 02/14/2025 6:45 EDT Treatment [facility] [place] [address] [place], [place] [phone] Carlota Jin MD 1 [facility], [address] [phone] 02/16/2025 6:45 EDT Treatment [facility] [place] [address] [place], [place] [phone] Carlota Jin MD [address] [phone] 02/19/2025 6:45 EDT Treatment [facility] [place] [address] [place], [place] [phone] Carlota Jin MD 1 [facility], [address] [phone] 02/21/2025 6:45 EDT Treatment [facility] [address] [place], [place] [phone] Carlota Jin MD [address] [phone] documented as of this encounter Procedures Procedure Name Priority Date/Time Associated Diagnosis Comments HEMODIALYSIS Routine 01/11/2023 7:05 EDT ESRD (end stage renal disease) ([facility]) documented in this encounter Visit Diagnoses Diagnosis ESRD (end stage renal disease) ([facility])- Primary End stage renal disease Hypoalbuminemia [...] intravenous, ONCE IN DIALYSIS, 1 dose, On Wed01/11/23 at 0730, Routine, DialysisIndications:Hypoalbumine bozena,Encounter for immunization,ESRD (end stage renal disease) ([facility]) Given 01/11/2023 8:14 EDT 500 Units heparin injection 9,000 Units 9,000 Units, intravenous, ONCE IN DIALYSIS, 1 dose, On Wed01/11/23 at 0730, Routine, Dialysis, Now x1 bolus 4500 units to be given at the beginning of dialysis 1500 units/hour to be given over the course of dialysis (9000 units total). Stop 1 hour prior to end of treatment. To be administered per Policy [id number].Indications:Hypoalbumine bozena,Encounter for immunization,ESRD (end stage renal disease) ([facility]) Given 01/11/2023 7:17 EDT 9,000 Units nepro w/ carb steady bolus 237 mL 237 mL (1 Package), oral, ONCE IN DIALYSIS, 1 dose, On Wed01/11/23 at 0730, RoutineIndications:Hypoalbuminem ia,ESRD (end stage renal disease) ([facility]) Given 01/11/2023 8:14 EDT 237 mL documented in this encounter Orders Dialysis Count Last Ordered Date First Orde red Date HEMODIALYSIS 1 01/11/2023 documented in this encounter Care Teams Street Sweeper Relationship Specialty Start Date End Date Adeola Villegas APRN [id number] [place] [address] PCP - General 10/12/16 07/06/23 documented as of this encounter
--- OUTSIDE RECORDS SUMMARY | 2024-12-05 12:29 | XMS_ITS | Encounter Summary ---
Author Organization [facility] Address [address] [place] [address] Care Team Providers Care Corking Machine Operator Name Role Phone Adeola Villegas APRN Primary Care Provider [phone] Encounter Details Date Type Department Care Team (Late st Contact Info) Description 01/04/2023 7:15 EDT Treatment [facility] [address] [place], [place] [phone] Carlota Jin MD 1 [facility], Level 2 [place] [address] ESRD (end stage renal disease) ([facility]) (Primary Dx); Hypoalbuminemia; Encounter for immunization [...] - Temperature - - Respiratory Rate 16 01/04/2023 0642 EDT Oxygen Saturation - - Inhaled Oxygen Concentration - - Weight 91.9 kg (202 lb 9.6 oz) 01/04/2023 0649 E DT Height - - Body Mass Index - - documented in this encounter Miscellaneous Notes * Flowsheet Note - Marcela Cox RN - 01/04/2023 1247 EDT 01/04/23 1059 Post-Hemodialysis Assessment Total Blood Processed (L) 90.11 Liters Dialyzer Clearance Lightly streaked Treatment UFR (ml:kg:hr) 11.08 ml:kg:hr Critline refill Not done Fluid Removed (L) 4 L Post-Dialysis Scale Weight 88 kg (194 lb 0.1 oz) Wheelchair Weight 0 kg (0 lb) Prosthesis Weight 0 kg (0 lb) Post-Treatment Weight (kg) 88 Treatment Weight Change (kg) 3.9 kg Day Target Weight (kg) 88.4 Post Sitting/Lying BP 116/66 Post Sitting/Lying pulse 65 Post Standing BP 108/65 Post Standing Pulse 67 Temp 36.4 ??C [...] 6:45 EST Treatment [facility] [place] [address] [place], [place] [address] Carlota Jin MD [address] [place] [address], [facility] 2 [place] [phone] 12/08/2024 6:45 EST Treatment [facility] [address] [place] [id number] Carlota Jin MD 1 [facility], [facility] 2 [place] [phone] 12/11/2024 6:45 EST Treatment [facility] [address] [place], [place] [id number] Carlota Jin MD 1 [facility], [facility] 2 [place] [phone] 12/13/2024 6:45 EST Treatment [facility] [place] [address] [place], [place] [phone] Carlota Jin MD 1 [facility], [facility] 2 [place] [phone] 12/15/2024 6:45 EST Treatment [facility] [place] [address] [place] [address] Carlota Jin MD 1 [facility], [facility] 2 [place] [phone] 12/18/2024 6:45 EST Treatment [facility] [place] [address] [place], [place] [phone] Carlota Jin MD 1 [facility], [address] [phone] 12/20/2024 6:45 EST Treatment [facility] [place] [address] [place] [address] Carlota Jin MD 1 [facility], [facility] 2 [place] [phone] 12/22/2024 6:45 EST Treatment [facility] [place] [address] [place], [place] [phone] Carlota Jin MD 1 [facility], [facility] 2 [place] [phone] 12/25/2024 6:45 EST Treatment [facility] [place] [address] [place], [place] [phone] Carlota Jin MD 1 [facility], [facility] 2 [place] [phone] 12/27/2024 6:45 EST Treatment [facility] [place] [address] [place], [place] [phone] Carlota Jin MD 1 [facility], [facility] 2 [place] [phone] 12/29/2024 6:45 EST Treatment [facility] [place] [address] [place], [place] [phone] Carlota Jin MD 1 [facility], [facility] 2 [place] [phone] 01/01/2025 6:45 EDT Treatment [facility] [place] [address] [place], [place] [phone] Carlota Jin MD 1 [facility], [facility] 2 [place] [phone] 01/03/2025 6:45 EDT Treatment [facility] [place] [address] [place], [place] [phone] Carlota Jin MD 1 [facility], [facility] 2 [place] [phone] 01/05/2025 6:45 EDT Treatment [facility] [place] [address] [place], [place] [phone] Carlota Jin MD 1 [facility], [facility] 2 [place] [phone] 01/08/2025 6:45 EDT Treatment [facility] [place] [address] [place] [address] Carlota Jin MD 1 [facility], [facility] 2 [place] [phone] 01/10/2025 6:45 EDT Treatment [facility] [place] [address] [place], [place] [phone] Carlota Jin MD 1 [facility], [address] [phone] 01/12/2025 6:45 EDT Treatment [facility] [place] [address] [place], [place] [phone] Carlota Jin MD 1 [facility], [address] [phone] 01/15/2025 6:45 EDT Treatment [facility] [place] [address] [place], [place] [phone] Carlota Jin MD 1 [facility], [address] [phone] 01/17/2025 6:45 EDT Treatment [facility] [place] [address] [place], [place] [phone] Carlota Jin MD 1 [facility], [facility] 2 [place] [phone] 01/19/2025 6:45 EDT Treatment [facility] [place] [address] [place], [place] [phone] Carlota Jin MD 1 [facility], [facility] 2 [place] [phone] 01/22/2025 6:45 EDT Treatment [facility] [place] [address] [place], [place] [phone] Carlota Jin MD 1 [facility], [facility] 2 [place] [phone] 01/24/2025 6:45 EDT Treatment [facility] [place] [address] [place] [address] Carlota Jin MD 1 [facility], [facility] 2 [place] [phone] 01/26/2025 6:45 EDT Treatment [facility] [place] [address] [place], [place] [phone] Carlota Jin MD 1 [facility], [facility] 2 [place] [phone] 01/29/2025 6:45 EDT Treatment [facility] [place] [address] [place], [place] [phone] Carlota Jin MD 1 [facility], [facility] 2 [place] [phone] 01/31/2025 6:45 EDT Treatment [facility] [place] [address] [place], [place] [address] Carlota Jin MD 1 [facility], [facility] 2 [place] [phone] 02/02/2025 6:45 EDT Treatment [facility] [place] [address] [place], [place] [phone] Carlota Jin MD 1 [facility], [facility] 2 [place] [phone] 02/05/2025 6:45 EDT Treatment [facility] [place] [address] [place], [place] [phone] Carlota Jin MD 1 [facility], [facility] 2 [place] [phone] 02/07/2025 6:45 EDT Treatment [facility] [place] [address] [place], [place] [phone] Carlota Jin MD 1 [facility], [facility] 2 [place] [phone] 02/09/2025 6:45 EDT Treatment [facility] [place] [address] [place], [place] [phone] Carlota Jin MD 1 [facility], [facility] 2 [place] [phone] 02/12/2025 6:45 EDT Treatment [facility] [place] [address] [place], [place] [phone] Carlota Jin MD 1 [facility], [facility] 2 [place] [phone] 02/14/2025 6:45 EDT Treatment [facility] [place] [address] [place], [place] [phone] Carlota Jin MD 1 [facility], [address] [phone] 02/16/2025 6:45 EDT Treatment [facility] [place] [address] [place], [place] [phone] Carlota Jin MD 1 [facility], [address] [phone] 02/19/2025 6:45 EDT Treatment [facility] [place] [address] [place], [place] [phone] Carlota Jin MD [address] [phone] 02/21/2025 6:45 EDT Treatment [facility] [place] [address] [place], [place] [phone] Carlota Jin MD 1 [facility], [address] [phone] documented as of this encounter Procedures Procedure Name Priority Date/Time Associated Diagnosis Comments POTASSIUM Routine 01/04/2023 7:01 EDT Hypoalbuminemia Encounter for immunization ESRD (end stage renal disease) ([facility]) HEMODIALYSIS Routine 01/04/2023 6:49 EDT ESRD (end stage renal disease) ([facility]) documented in this encounter Results * (ABNORMAL) POTASSIUM (01/04/2023 7:01 EDT) Potassium 5.9(H) 3.5 - 5.0 mmol/L 01/04/2023 20:46 EDT [facility] Blood VENOUS BLOOD / Unknown Venipuncture / Unknown 01/04/2023 7:01 EDT 01/04/2023 7:01 EDT us Carlota Jin MD CHEMISTRY & BLOOD GAS ORD ERABLES Final Result [facility] [address] [place] [address] documented in this encounter Visit Diagnoses Diagnosis ESRD (end stage renal disease) ([facility])- Primary End stage renal disease Hypoalbuminemia [...] intravenous, ONCE IN DIALYSIS, 1 dose, On Wed01/04/23 at 0715, Routine, DialysisIndications:Hypoalbumine bozena,Encounter for immunization,ESRD (end stage renal disease) ([facility]) Given 01/04/2023 7:28 EDT 500 Units heparin injection 9,000 Units 9,000 Units, intravenous, ONCE IN DIALYSIS, 1 dose, On Wed01/04/23 at 0715, Routine, Dialysis, Now x1 bolus 4500 units to be given at the beginning of dialysis 1500 units/hour to be given over the course of dialysis (9000 units total). Stop 1 hour prior to end of treatment. To be administered per Policy [id number].Indications:Hypoalbumine bozena,Encounter for immunization,ESRD (end stage renal disease) ([facility]) Given 01/04/2023 7:00 EDT 9,000 Units nepro w/ carb steady bolus 237 mL 237 mL (1 Package), oral, ONCE IN DIALYSIS, 1 dose, On Wed01/04/23 at 0715, RoutineIndications:Hypoalbuminem ia,ESRD (end stage renal disease) ([facility]) Given 01/04/2023 8:02 EDT 237 mL documented in this encounter Orders Dialysis Count Last Ordered Date First Orde red Date HEMODIALYSIS 1 01/04/2023 documented in this encounter Care Teams Corking Machine Operator Relationship Specialty Start Date End Date Adeola Villegas APRN [address] [place] [address] PCP - General 10/12/16 07/06/23 documented as of this encounter
--- OUTSIDE RECORDS SUMMARY | 2024-12-05 12:29 | XMS_ITS | Encounter Summary ---
Author Organization [facility] Address [address] [place] [address] Care Team Providers Care Home Health Billing Specialist Name Role Phone Adeola Villegas MONA Primary Care Provider [phone] Encounter Details Date Type Department Care Team (Late st Contact Info) Description 01/01/2023 7:15 EST Treatment [facility] [address] [place], [place] [phone] Carlota Jin MD 1 [facility], Level [address] [place] [address] ESRD (end stage renal disease) ([facility]) (Primary Dx); Hypoalbuminemia; Encounter for immunization [...] - Temperature - - Respiratory Rate 12 01/01/2023 1108 EST Oxygen Saturation - - Inhaled Oxygen Concentration - - Weight 89.5 kg (197 lb 5 oz) 01/01/2023 0654 EST Height - - Body Mass Index - - documented in this encounter Miscellaneous Notes * Flowsheet Note - Melissa Crespo RN - 01/01/2023 1410 EST 01/01/23 1108 Post-Hemodialysis Assessment Total Blood Processed (L) 89.77 Liters Dialyzer Clearance Lightly streaked Treatment UFR (ml:kg:hr) 8.3 ml:kg:hr Critline refill Negative (H1: 35.0 H2: 34.8) Fluid Removed (L) 3 L Post-Dialysis Scale Weight 86.6 kg (190 lb 14.7 oz) Wheelchair Weight 0 kg (0 lb) Prosthesis Weight 0 kg (0 lb) Post-Treatment Weight (kg) 86.6 Treatment Weight Change (kg) 2.9 kg Day Target Weight (kg) 87 Post Sitting/Lying BP 154/74 Post Sitting/Lying pulse 59 Post Standing BP 123/62 Post Standing Pulse 71 Temp 36.3 ??C (97.3 ??F) Temp src Temporal Resp 12 Post [...] [facility] [address] [place], [place] [phone] Carlota Jin MD [facility], [facility] 2 [place] [address] 12/08/2024 6:45 EST Treatment [facility] [address] [place] [phone] Carlota Jin MD 1 [facility], [facility] 2 [place] [address] 12/11/2024 6:45 EST Treatment [facility] [place] [address] [place], [place] [address] Carlota Jin MD 1 [facility], [facility] 2 [place] [phone] 12/13/2024 6:45 EST Treatment [facility] [place] [address] [place], [place] [phone] Carlota Jin MD 1 [facility], [facility] 2 [place] [phone] 12/15/2024 6:45 EST Treatment [facility] [place] [address] [place], [place] [phone] Carlota Jin MD 1 [facility], [facility] 2 [place] [phone] 12/18/2024 6:45 EST Treatment [facility] [place] [address] [place], [place] [phone] Carlota Jin MD 1 [facility], [facility] 2 [place] [phone] 12/20/2024 6:45 EST Treatment [facility] [place] [address] [place], [place] [phone] Carlota Jin MD 1 [facility], [facility] 2 [place] [phone] 12/22/2024 6:45 EST Treatment [facility] [place] [address] [place], [place] [phone] Carlota Jin MD 1 [facility], [facility] 2 [place] [phone] 12/25/2024 6:45 EST Treatment [facility] [place] [address] [place], [place] [phone] Carlota Jin MD 1 [facility] 2 [place] [phone] 12/27/2024 6:45 EST Treatment [facility] [address] [place], [place] [phone] Carlota Jin MD 1 [facility], [facility] 2 [place] [phone] 12/29/2024 6:45 EST Treatment [facility] [address] [place], [place] [phone] Carlota Jin MD 1 [facility], [facility] 2 [place] [phone] 01/01/2025 6:45 EDT [facility] [address] [place] [address] Carlota Jin MD 1 [facility], [facility] 2 [place] [phone] 01/03/2025 6:45 EDT [facility] [address] [place], [place] [phone] Carlota Jin MD 1 [facility], [facility] 2 [place] [phone] 01/05/2025 6:45 EDT Treatment [facility] [place] [address] [place], [place] [phone] Carlota Jin MD 1 [facility], [facility] 2 [place] [phone] 01/08/2025 6:45 EDT Treatment [facility] [place] [address] [place], [place] [phone] Carlota Jin MD [address] [place] [address], [address] [phone] 01/10/2025 6:45 EDT Treatment [facility] [place] [address] [place], [place] [phone] Carlota Jin MD [address] [place] [address], [address] [phone] 01/12/2025 6:45 EDT Treatment [facility] [place] [address] [place], [place] [phone] Carlota Jin MD [address] [place] [address], [facility] 2 [place] [phone] 01/15/2025 6:45 EDT Treatment [facility] [place] [address] [place], [place] [phone] Carlota Jin MD 1 [facility], [facility] 2 [place] [phone] 01/17/2025 6:45 EDT [address] [facility] [place] [address] [place], [place] [phone] Carlota Jin MD 1 [facility], [facility] 2 [place] [phone] 01/19/2025 6:[address] EDT [address] [facility] [place] [address] [place], [place] [address] Carlota Jin MD 1 [facility], [facility] 2 [place] [phone] 01/22/2025 6:[address] EDT [address] [facility] [place] [address] [place], [place] [phone] Carlota Jin MD 1 [facility], [facility] 2 [place] [phone] 01/24/2025 6:[address] EDT [address] [facility] [place] [address] [place] [address] Carlota Jin MD 1 [facility], [facility] 2 [place] [phone] 01/26/2025 6:45 EDT [address] [facility] [place] [address] [place] [address] Carlota Jin MD 1 [facility], [facility] 2 [place] [phone] 01/29/2025 6:45 EDT [address] [facility] [place] [address] [place], [place] [phone] Carlota Jin MD 1 [facility], [facility] 2 [place] [phone] 01/31/2025 6:[address] EDT [address] [facility] [place] [address] [place], [place] [phone] Carlota Jin MD 1 [facility], [facility] 2 [place] [phone] 02/02/2025 6:[address] EDT [address] [facility] [place] [address] [place], [place] [phone] Carlota Jin MD 1 [facility], [facility] 2 [place] [phone] 02/05/2025 6:[address] EDT [address] [facility] [place] [address] [place] [address] Carlota Jin MD 1 [facility], [address] [phone] 02/07/2025 6:45 EDT Treatment [facility] [place] [address] [place], [place] [phone] Carlota Jin MD 1 [facility], [facility] 2 [place] [phone] 02/09/2025 6:[address] EDT [address] [facility] [place] [address] [place], [place] [phone] Carlota Jin MD 1 [facility], [facility] 2 [place] [phone] 02/12/2025 6:[address] EDT [address] [facility] [place] [address] [place], [place] [phone] Carlota Jin MD 1 [facility], [address] [phone] 02/14/2025 6:[address] EDT Treatment [facility] [place] [address] [place], [place] [phone] Carlota Jin MD 1 [facility], [address] [phone] 02/16/2025 6:[address] EDT [address] [facility] [place] [address] [place], [place] [phone] Carlota Jin MD [address] [phone] 02/19/2025 6:45 EDT Treatment [facility] [place] [address] [place], [place] [phone] Carlota Jin MD 1 [facility], [address] [phone] 02/21/2025 6:45 EDT Treatment [facility] [address] [place], [place] [phone] Carlota Jin MD [address] [phone] documented as of this encounter Procedures Procedure Name Priority Date/Time Associated Diagnosis Comments HEMODIALYSIS Routine 01/01/2023 6:58 EST ESRD (end stage renal disease) ([facility]) documented in this encounter Visit Diagnoses [...] intravenous, ONCE IN DIALYSIS, 1 dose, On Wed01/01/23 at 0715, Routine, DialysisIndications:Hypoalbumine bozena,Encounter for immunization,ESRD (end stage renal disease) ([facility]) Given 01/01/2023 8:13 EST 500 Units heparin injection 9,000 Units 9,000 Units, intravenous, ONCE IN DIALYSIS, 1 dose, On Wed01/01/23 at 0715, Routine, Dialysis, Now x1 bolus 4500 units to be given at the beginning of dialysis 1500 units/hour to be given over the course of dialysis (9000 units total). Stop 1 hour prior to end of treatment. To be administered per Policy [id number].Indications:Hypoalbumine bozena,Encounter for immunization,ESRD (end stage renal disease) ([facility]) Given 01/01/2023 7:06 EST 9,000 Units nepro w/ carb steady bolus 237 mL 237 mL (1 Package), oral, ONCE IN DIALYSIS, 1 dose, On Wed01/01/23 at 0715, RoutineIndications:Hypoalbuminem ia,ESRD (end stage renal disease) ([facility]) Given 01/01/2023 8:13 EST 237 mL documented in this encounter Orders Dialysis Count Last Ordered Date First Orde red Date HEMODIALYSIS 1 01/01/2023 documented in this encounter Care Teams Home Health Billing Specialist Relationship Specialty Start Date End Date Adeola Villegas APRN [address] [place] [address] PCP - General 10/12/16 07/06/23 documented as of this encounter
--- OUTSIDE RECORDS SUMMARY | 2024-12-05 12:29 | XMS_ITS | Encounter Summary ---
Author Organization [facility] Address [address] [place] [address] Care Team Providers Care Screw Machine Repairer Name Role Phone Adeola Villegas MONA Primary Care Provider [phone] Ken Greer MD Primary Care Provider [phone] Kiel Powers Unavailable Unavailable Encounter Details Date Type Department Care Team (Late st Contact Info) Description 01/11/2023 Telephone [facility] [address] [place], [place] [address] Alexa Estrada [facility] [address] [place], [place] [id number] Social History Tobacco Use Types Packs/Day Years [...] [facility] [address] [place], [place] [id number] Carlota Jin MD 1 [facility], Level [address] [place] [phone] 12/08/2024 6:45 EST Treatment [facility] [place] [address] [place], [place] [address] Carlota Jin MD 1 [facility], [facility] 2 [place] [phone] 12/11/2024 6:45 EST Treatment [facility] [place] [address] [place], [place] [address] [phone] Carlota Jin MD 1 [facility], [address] [phone] 12/13/2024 6:45 EST Treatment [facility] [place] [address] [place], [place] [id number] Carlota Jin MD 1 [facility], [address] [phone] 12/15/2024 6:45 EST Treatment [facility] [address] [place] [address] Carlota Jin MD 1 [facility], [address] [phone] 12/18/2024 6:45 EST Treatment [facility] [address] [place], [place] [id number] Carlota Jin MD [address] [phone] 12/20/2024 6:45 EST Treatment [facility] [address] [place], [place] [id number] Carlota Jin MD 1 [facility], [facility] 2 [place] [phone] 12/22/2024 6:45 EST Treatment [facility] [place] [address] [place], [place] [id number] Carlota Jin MD 1 [facility], [facility] 2 [place] [phone] 12/25/2024 6:45 EST Treatment [facility] [place] [address] [place], [place] [id number] Carlota Jin MD 1 [facility], [facility] 2 [place] [phone] 12/27/2024 6:45 EST Treatment [facility] [address] [place] [address] Carlota Jin MD 1 [facility], [facility] 2 [place] [phone] 12/29/2024 6:45 EST Treatment [facility] [address] [place], [place] [id number] Carlota Jin MD 1 [facility], [facility] 2 [place] [phone] 01/01/2025 6:45 EDT Treatment [facility] [address] [place], [place] [id number] Carlota Jin MD 1 [facility], [address] [place] [phone] 01/03/2025 6:45 EDT Treatment [facility] [place] [address] [place], [place] [id number] Carlota Jin MD 1 [facility], [facility] 2 [place] [phone] 01/05/2025 6:45 EDT Treatment [facility] [place] [address] [place], [place] [id number] Carlota Jin MD 1 [facility], [facility] 2 [place] [phone] 01/08/2025 6:45 EDT Treatment [facility] [place] [address] [place], [place] [id number] Carlota Jin MD 1 [facility], [address] [phone] 01/10/2025 6:45 EDT Treatment [facility] [place] [address] [place], [place] [id number] Carlota Jin MD [address] [phone] 01/12/2025 6:45 EDT Treatment [facility] [place] [address] [place], [place] [id number] Carlota Jin MD [address] [phone] 01/15/2025 6:45 EDT Treatment [facility] [place] [address] [place], [place] [id number] Carlota Jin MD 1 [facility], [address] [place] [phone] 01/17/2025 6:45 EDT Treatment [facility] [place] [address] [place], [place] [id number] Carlota Jin MD 1 [facility], [facility] 2 [place] [phone] 01/19/2025 6:45 EDT Treatment [facility] [place] [address] [place], [place] [id number] Carlota Jin MD 1 [facility], [facility] 2 [place] [phone] 01/22/2025 6:45 EDT Treatment [facility] [place] [address] [place], [place] [id number] Carlota Jin MD 1 [facility], [facility] 2 [place] [phone] 01/24/2025 6:45 EDT Treatment [facility] [place] [address] [place] [address] Carlota Jin MD 1 [facility], [facility] 2 [place] [phone] 01/26/2025 6:45 EDT Treatment [facility] [address] [place], [place] [id number] Carlota Jin MD 1 [facility], [facility] 2 [place] [phone] 01/29/2025 6:45 EDT Treatment [facility] [place] [address] [place], [place] [id number] Carlota Jin MD 1 [facility], [facility] 2 [place] [phone] 01/31/2025 6:45 EDT Treatment [facility] [place] [address] [place], [place] [phone] Carlota Jin MD 1 [facility], [facility] 2 [place] [phone] 02/02/2025 6:45 EDT Treatment [facility] [place] [address] [place], [place] [id number] Carlota Jin MD 1 [facility], [address] [phone] 02/05/2025 6:45 EDT Treatment [facility] [place] [address] [place], [place] [id number] Carlota Jin MD 1 [facility], [facility] 2 [place] [phone] 02/07/2025 6:45 EDT Treatment [facility] [place] [address] [place], [place] [id number] Carlota Jin MD 1 [facility], [facility] 2 [place] [phone] 02/09/2025 6:45 EDT Treatment [facility] [place] [address] [place], [place] [id number] Carlota Jin MD 1 [facility], [facility] 2 [place] [phone] 02/12/2025 6:45 EDT Treatment [facility] [place] [address] [place], [place] [address] Carlota Jin MD 1 [facility], [facility] 2 [place] [phone] 02/14/2025 6:45 EDT Treatment [facility] [place] [address] [place], [place] [phone] Carlota Jin MD 1 [facility], [facility] 2 [place] [phone] 02/16/2025 6:45 EDT Treatment [facility] [place] [address] [place] [address] Carlota Jin MD 1 [facility], [facility] 2 [place] [phone] 02/19/2025 6:45 EDT Treatment [facility] [address] [place] [address] Carlota Jin MD 1 [facility], [facility] 2 [place] [phone] 02/21/2025 6:45 EDT Treatment [facility] [place] [address] [place], [place] [phone] Carlota Jin MD 1 [facility], [facility] 2 [place] [phone] documented as of this encounter Visit Diagnoses Not on filedocumented in this encounter Additional Health Concerns Infection Onset Date Last Indicated Resolved Time COVID-19 Comment:COVID+ 11/05/23 @[place] (see scan) 11/08/2023 11/08/2023 11/17/2023 13:58 EST R/O COVID-19 12/20/2023 12/20/2023 12/20/2023 7:14 EST COVID-19 Comment:Collected @ [facility]. 03/12/2024 03/13/2024 04/01/2024 22: 15 EDT R/O COVID-19 05/30/2024 05/30/2024 05/30/2024 20:5 0 EDT documented as of this encounter Care Teams Screw Machine Repairer Relationship Specialty Start Date End Date Adeola Villegas APRN [address] [place] [address] PCP - General 10/12/16 07/06/23 Ken Greer MD [address] [place] [address] PCP - General 07/07/23 Kiel Powers Four Slide Machine Operator Nephrology 05/31/24 documented as of this encounter
--- OUTSIDE RECORDS SUMMARY | 2024-12-05 12:29 | XMS_ITS | Encounter Summary ---
Author Organization [facility] Address [address] [place] [address] Care Team Providers Care Seat Joiner Name Role Phone Adeola Villegas APRN Primary Care Provider [phone] Encounter Details Date Type Department Care Team (Late st Contact Info) Description 01/20/2023 Documentation Visit [facility] [address] [place], [place] [phone] Shelley Eden, RD [address] [place] [address] Social History Tobacco Use Types Packs/Day Years Used Date Smoking Tobacco: Every Day Cigarettes Smokeless Tobacco: Never Sex and Gender Information Value Date Recorded Sex Assigned at Not on file Legal Sex Male 18:49 EST Gender Identity Male 07/07/2023 14:11 EDT Sexual Orientation Not on file documented as of this encounter Progress Notes * Shelley Eden RD - 01/20/2023 0937 EDT Dialysis Dietitian's Monthly Assessment Met with patient on 01/13/23 Family/caregivers or others present: lives with his Information obtained from: patient Recent Hospitalizations: none Subjective: Xander often is very sleepy and difficult to talk to at HD. He said he is not sleeping well at home and is very tired. We discussed high phos and K level - revd high phos foods to limit and binder regimen. He noted he has been eating more grapefruit , tomatoes and OJ. IN regards to high phos level not always taking binders right at meal time and noted he was with out it for a couple weeks. Appetite: Fair Appetite scale (0-10): No number given Gastrointestinal: No issues identified Skin integrity: Intact Diabetes: Yes does not check on bld sugars Diabetes Management: Self Monitoring of Blood Glucose Diet Recall: B donut and coffee L meat s/w D pot roast Fluid: Water, Coffee, Milk, Juice Alcohol: will need to f/u Prescribed Weight:87 Post-Dialytic Weight: 86.4 - 01/08/2023 01/11/2023 01/13/2023 01/15/2023 01/18/2023 ( Kg ) 86.4 87 87.5 86.5 86.4 UFR: - 01/08/2023 01/11/2023 01/13/2023 01/15/2023 01/18/2023 mL/Kg/hr 10.86 10.26 9.39 7.77 9.68 URR: 72.368 (Calculated from:; BUN Pre-Dialysis: 76 mg/dL at 12/28/2022 11:21; BUN Post-Dialysis: 21 mg/dL at 12/28/2022 11:21) Kt/V: 1.52 (Calculated from:; BUN Pre-Dialysis: 76 mg/dL at 12/28/2022 11:21; BUN Post-Dialysis: 21 mg/dL at 12/28/2022 11:21; Pre-Treatment Weight (kg): 90.4 at 12/28/2022 6:58; Post-Treatment Weight (kg): 87.1 at 12/28/2022 11:06; Duration of Treatment (minutes): 240 minutes at 12/28/2022 11:06) PCR: 1.36 (Calculated from:; BUN Pre-Dialysis: 76 mg/dL at 12/28/2022 11:21; BUN Post-Dialysis: 21 mg/dL at 12/28/2022 11:21; Pre-Treatment Weight (kg): 90.4 at 12/28/2022 6:58; Post-Treatment Weight (kg):87.1 at 12/28/2022 11:06; Duration of Treatment (minutes): 240 minutes at 12/28/2022 11:06; Age: 57 years) Pertinent Labs include: Lab Results Component Value Date LABALBU 3.5 12/28/2022 LABALBU 3.4 11/30/2022 Lab Results Component Value Date BUNPRE 76 (H) 12/28/2022 BUNPRE 76 (H) 12/28/2022 NA 134 (L) 12/28/2022 NA 135 (L) 11/30/2022 K 5.9 (H) 01/04/2023 K 6.7 (H) 12/28/2022 CL 100 12/28/2022 CL 99 11/30/2022 CO2 23 12/28/2022 CO2 24 11/30/2022 MG 3.0 (H) 12/28/2022 MG 2.5 11/30/2022 CALCIUM 9.1 12/28/2022 CALCIUM 8.5 11/30/2022 CALCCA 9.5 12/28/2022 CALCCA 9.0 11/30/2022 PHOS 7.0 (H) 12/28/2022 PHOS 7.7 (H) 11/30/2022 ALKPHOS 84 12/28/2022 ALKPHOS 82 11/30/2022 PTH 341 (H) 11/30/2022 PTH 266 (H) 11/16/2022 PLT 270 01/13/2023 PLT 264 01/06/2023 MCV 98 (H) 01/13/2023 MCV 98 (H) 01/06/2023 [id number] 11/16/2022 VITD 27 (L) 11/16/2022 FOLATE 17.3 11/16/2022 Protein/calorie supplements: Nepro on HD days Using protein powder at home Renal/other vitamins: cholecalciferol (Vitamin D3) - 2000 IU daily MULTIVITAMIN ORAL Herbal/OTC supplements: None reported CKD/MBD medications: sevelamer hydrochloride - 2 with meals Recmd to add tums with snacks and larger meals Other Medications Relevant to Nutrition: atorvastatin - 40 mg furosemide - 20 mg hydroCHLOROthiazide - 25 mg sevelamer hydrochloride - 800 mg LEVEMIR FLEXPEN SUBQ Assessment Nutrition status / Adequacy of intake: Xander seems to be eating well at least 2 protein servings daily. He is taking nepro on HD to help improve his albumin. His wt has declined about 1-2 kg sincestarting HD and his current BMI is at 28. He is well nourished in appearance and fairly highly functioning Weight/Volume status: fluid gains 1.6-5.3 Electrolytes: High k level - discussed high k foods to limit Mg level high - not on any meds Na low - suspect r/t high fluid gains Mineral Bone Disease: Ca level normal Phos high - encouraged to time binders with meals, revd high phos foods to limit PTH WNL - no calcitriol Vitamin Status: B12 and folate WNL - will need to f/u on him getting started on renal vitamin- currently on MV D25 level low -on 2000 IU D3 Diabetes management: on insulin but not checking regularly Education Materials provided: Nutrition Lab Report Potassium education Phosphorus education Assessment of Understanding: needs reinforcement Medical Nutrition Therapy Plan and Recommendation 1. Revd high phos and K foods to limit - discussed lower k alternatives and timing of phos binders 2. Continue nepro and protein powder at home to improve albumin 3. Will need to change to renal vitamin 4. Continue Vitamin D3 supplement Shelley Eden RD, CD documented in this encounter Plan of Treatment Upcoming Encounters Date Type Department Care Team (Late st Contact Info) Description 12/06/2024 6:45 EST Treatment [facility] [place] [address] [place], [place] [id number] Carlota Jin MD [address] [phone] 12/08/2024 6:45 EST Treatment [facility] [place] [address] [place], [place] [id number] Carlota Jin MD [address] [phone] 12/11/2024 6:45 EST Treatment [facility] [place] [address] [place], [place] [id number] Carlota Jin MD [address] [phone] 12/13/2024 6:45 EST Treatment [facility] [place] [address] [place], [place] [id number] Carlota Jin MD 1 [facility], [facility] 2 [place] [phone] 12/15/2024 6:45 EST Treatment [facility] [place] [address] [place], [place] [id number] Carlota Jin MD 1 [facility], [facility] 2 [place] [phone] 12/18/2024 6:45 EST Treatment [facility] [address] [place], [place] [id number] Carlota Jin MD 1 [facility], [facility] [address] [place] [phone] 12/20/2024 6:45 EST Treatment [facility] [address] [place], [place] [address] Carlota Jin MD 1 [facility], [facility] [address] [place] [phone] 12/22/2024 6:45 EST Treatment [facility] [place] [address] [place], [place] [id number] Carlota Jin MD 1 [facility], [facility] 2 [place] [phone] 12/25/2024 6:45 EST Treatment [facility] [address] [place], [place] [id number] Carlota Jin MD 1 [facility], [facility] [address] [place] [phone] 12/27/2024 6:45 EST Treatment [facility] [place] [address] [place], [place] [id number] Carl[facility] MD 1 [facility], [facility] [address] [place] [phone] 12/29/2024 6:45 EST Treatment [facility] [place] [address] [place] [address] Carlota Jin MD 1 [facility], [facility] 2 [place] [phone] 01/01/2025 6:45 EDT Treatment [facility] [place] [address] [place], [place] [id number] Carlota Jin MD 1 [facility], [facility] [address] [place] [phone] 01/03/2025 6:45 EDT Treatment [facility] [place] [address] [place] [address] Carlota Jin MD 1 [facility], [facility] [address] [place] [phone] 01/05/2025 6:45 EDT Treatment [facility] [place] [address] [place], [place] [id number] Carlota Jin MD 1 [facility], [facility] [address] [place] [phone] 01/08/2025 6:45 EDT Treatment [facility] [place] [address] [place], [place] [address] Carlota Jin MD 1 [facility], [facility] [address] [place] [phone] 01/10/2025 6:45 EDT Treatment [facility] [place] [address] [place] [address] Carlota Jin MD 1 [facility], [address] [phone] 01/12/2025 6:45 EDT Treatment [facility] [place] [address] [place], [place] [address] Carlota Jin MD 1 [facility], [facility] [address] [place] [phone] 01/15/2025 6:45 EDT Treatment [facility] [place] [address] [place], [place] [address] Carlota Jin MD 1 [facility], [facility] [address] [place] [phone] 01/17/2025 6:45 EDT Treatment [facility] [place] [address] [place], [place] [id number] Carlota Jin MD 1 [facility], [facility] 2 [place] [phone] 01/19/2025 6:45 EDT Treatment [facility] [place] [address] [place], [place] [address] Carlota Jin MD 1 [facility], [facility] [address] [place] [phone] 01/22/2025 6:45 EDT Treatment [facility] [place] [address] [place], [place] [id number] Carlota Jin MD 1 [facility], [address] [phone] 01/24/2025 6:45 EDT Treatment [facility] [place] [address] [place], [place] [id number] Carlota Jin MD 1 [facility], [address] [phone] 01/26/2025 6:45 EDT Treatment [facility] [place] [address] [place], [place] [id number] Carlota Jin MD [address] [phone] 01/29/2025 6:45 EDT Treatment [facility] [place] [address] [place], [place] [id number] Carlota Jin MD [address] [phone] 01/31/2025 6:45 EDT Treatment [facility] [place] [address] [place], [place] [id number] Carlota Jin MD 1 [facility], [facility] 2 [place] [phone] 02/02/2025 6:45 EDT Treatment [facility] [place] [address] [place], [place] [id number] Carlota Jin MD 1 [facility], [facility] [address] [place] [phone] 02/05/2025 6:45 EDT Treatment [facility] [place] [address] [place], [place] [id number] Carlota Jin MD 1 [facility], [facility] 2 [place] [phone] 02/07/2025 6:45 EDT Treatment [facility] [place] [address] [place], [place] [id number] Carlota Jin MD 1 [facility], [address] [phone] 02/09/2025 6:45 EDT Treatment [facility] [place] [address] [place] [address] Carlota Jin MD 1 [facility], [facility] [address] [place] [phone] 02/12/2025 6:45 EDT Treatment [facility] [place] [address] [place], [place] [id number] Carlota Jin MD 1 [facility], [facility] [address] [place] [phone] 02/14/2025 6:45 EDT Treatment [facility] [place] [address] [place], [place] [id number] Carlota Jin MD 1 [facility], [address] [phone] 02/16/2025 6:45 EDT Treatment [facility] [place] [address] [place], [place] [id number] Carlota Jin MD 1 [facility], [address] [phone] 02/19/2025 6:45 EDT Treatment [facility] [place] [address] [place], [place] [id number] Carlota Jin MD [address] [place] [address], [address] [phone] 02/21/2025 6:45 EDT Treatment [facility] [place] [address] [place], [place] [id number] Carlota Jin MD [address] [place] [address] [phone] documented as of this encounter Visit Diagnoses Not on filedocumented in this encounter Care Teams Seat Joiner Relationship Specialty Start Date End Date Adeola Villegas APRN Mohit [address] [facility] [address] [place], [place] [address] PCP - General 10/12/16 07/06/23 documented as of this encounter
--- OUTSIDE RECORDS SUMMARY | 2024-12-05 12:29 | XMS_ITS | Encounter Summary ---
Author Organization [facility] Address [address] [place] [address] Care Team Providers Care Dielectric Machine Operator Name Role Phone Adeola Villegas MONA Primary Care Provider [phone] Encounter Details Date Type Department Care Team (Late st Contact Info) Description 01/11/2023 [facility]ation [facility] [address] [place] [address] Alexa Estrada LICSW [address] [place] [address] Social History Tobacco Use Types Packs/Day Years Used Date Smoking Tobacco: Every Day Cigarettes Smokeless Tobacco: Never Sex and Gender Information Value Date Recorded Sex Assigned at Not on file Legal Sex Male 18:49 EST Gender Identity Male 07/07/2023 14:11 EDT Sexual Orientation Not on file documented as of this encounter Progress Notes * Alexa Estrada LICSW - 01/11/2023 1129 EDT Chain 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 SW attempted to engage pt about the pw that SW sent home with him several weeks ago for Medicaid and VKA- pt had reported that he had lost his secondary insurance due to losing her job. SW checked with renal Hellen santos about this who said that the pt currently does have active secondary coverage. SW unclear onhow the losing her job will affect pts insurance situation, Pt gave SW permission to discuss with his via phone, SW attempted to call her at home and LMTCB. SHANNON has provided pt with Medicaid application and [facility] financial assistance application High heating bills and food costs- SW provided pt with Fuel assistance and [employer] application Increased fuel costs, pt has not brought them back in- SW will attempt to work on these with pts . Current Living Situation: Lives with family and Lives with friends Lives with family Pt lives with his , Hoda, in their apartment in [place]. 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 Education: Highest level of education: high school [...] Contact Info) Description 12/06/2024 6:45 EST Treatment [facility] [address] [place], [place] [id number] Carlota Jin MD [address] [phone] 12/08/2024 6:45 EST Treatment [facility] [address] [place], [place] [id number] Carlota Jin MD [address] [place] [address] [phone] 12/11/2024 6:45 EST [facility] [address] [place], [place] [id number] Carlota Jin MD [address] [place] [address] [phone] 12/13/2024 6:45 EST [facility] [address] [place], [place] [id number] Carlota Jin MD [address] [place] [address] [phone] 12/15/2024 6:45 EST Treatment [facility] [place] [address] [place], [place] [id number] Carlota Jin MD 1 [facility], [facility] [address] [place] [phone] 12/18/2024 6:45 EST Treatment [facility] [place] [address] [place], [place] [id number] Carlota Jin MD 1 [facility], [facility] 2 [place] [phone] 12/20/2024 6:45 EST Treatment [facility] [place] [address] [place], [place] [id number] Carlota Jin MD 1 [facility], [facility] [address] [place] [phone] 12/22/2024 6:45 EST Treatment [facility] [place] [address] [place], [place] [id number] Carlota Jin MD 1 [facility], [address] [phone] 12/25/2024 6:45 EST Treatment [facility] [place] [address] [place], [place] [id number] Carlota Jin MD 1 [facility], [facility] [address] [place] [phone] 12/27/2024 6:45 EST Treatment [facility] [place] [address] [place], [place] [id number] Carlota Jin MD 1 [facility] 2 [place] [phone] 12/29/2024 6:45 EST Treatment [facility] [place] [address] [place], [place] [id number] Carlota Jin MD 1 [facility], [facility] [address] [place] [phone] 01/01/2025 6:45 EDT Treatment [facility] [place] [address] [place], [place] [id number] Carlota Jin MD 1 [facility], [facility] 2 [place] [phone] 01/03/2025 6:45 EDT Treatment [facility] [place] [address] [place], [place] [id number] Carlota Jin MD 1 [facility], [facility] [address] [place] [phone] 01/05/2025 6:45 EDT Treatment [facility] [place] [address] [place], [place] [id number] Carlota Jin MD 1 [facility], [facility] [address] [place] [phone] 01/08/2025 6:45 EDT Treatment [facility] [address] [place], [place] [id number] Carlota Jin MD 1 [facility], [facility] [address] [place] [phone] 01/10/2025 6:45 EDT Treatment [facility] [place] [address] [place], [place] [id number] Carlota Jin MD 1 [facility], [facility] 2 [place] [phone] 01/12/2025 6:45 EDT Treatment [facility] [place] [address] [place], [place] [id number] Carlota Jin MD [address] [place] [address], [address] [phone] 01/15/2025 6:45 EDT Treatment [facility] [place] [address] [place], [place] [id number] Carlota Jin MD [address] [place] [address], [address] [phone] 01/17/2025 6:45 EDT Treatment [facility] [place] [address] [place], [place] [id number] Carlota Jin MD [address] [place] [address], [facility] [address] [place] [phone] 01/19/2025 6:45 EDT Treatment [facility] [place] [address] [place], [place] [id number] Carlota Jin MD 1 [facility], [facility] 2 [place] [phone] 01/22/2025 6:45 EDT Treatment [facility] [place] [address] [place], [place] [id number] Carlota Jin MD 1 [facility], [facility] 2 [place] [phone] 01/24/2025 6:45 EDT Treatment [facility] [place] [address] [place], [place] [id number] Carlota Jin MD 1 [facility], [facility] 2 [place] [phone] 01/26/2025 6:45 EDT Treatment [facility] [place] [address] [place] [address] Carlota Jin MD 1 [facility], [facility] 2 [place] [phone] 01/29/2025 6:45 EDT Treatment [facility] [place] [address] [place] [address] Carlota Jin MD 1 [facility], [facility] 2 [place] [phone] 01/31/2025 6:45 EDT Treatment [facility] [place] [address] [place] [address] Carlota Jin MD 1 [facility], [facility] 2 [place] [phone] 02/02/2025 6:45 EDT Treatment [facility] [place] [address] [place], [place] [id number] Carlota Jin MD 1 [facility], [facility] 2 [place] [phone] 02/05/2025 6:45 EDT Treatment [facility] [place] [address] [place], [place] [id number] Carlota Jin MD 1 [facility], [facility] 2 [place] [phone] 02/07/2025 6:45 EDT Treatment [facility] [place] [address] [place], [place] [id number] Carlota Jin MD 1 [facility], [facility] 2 [place] [phone] 02/09/2025 6:45 EDT Treatment [facility] [place] [address] [place] [address] Carlota Jin MD 1 [facility], [address] [phone] 02/12/2025 6:45 EDT Treatment [facility] [place] [address] [place], [place] [id number] Carlota Jin MD 1 [facility], [facility] [address] [place] [phone] 02/14/2025 6:45 EDT Treatment [facility] [place] [address] [place], [place] [id number] Carlota Jin MD 1 [facility], [facility] [address] [place] [phone] 02/16/2025 6:45 EDT Treatment [facility] - [place] [address] [place], [place] [id number] Carlota Jin MD [address] [place] [address], [facility] [address] [place] [phone] 02/19/2025 6:45 EDT Treatment [facility] [address] [place], [place] [id number] Carlota Jin MD [address] [place] [address], [facility] [address] [place] [phone] 02/21/2025 6:45 EDT Treatment [facility] [address] [place], [place] [id number] Carlota Jin MD [address] [place] [address], [facility] [address] [place] [phone] documented as of this encounter Visit Diagnoses Not on filedocumented in this encounter Care Teams Dielectric Machine Operator Relationship Specialty Start Date End Date Adeola Villegas APRN [address] [id number] PCP - General 10/12/16 07/06/23 documented as of this encounter
--- OUTSIDE RECORDS SUMMARY | 2024-12-05 12:29 | XMS_ITS | Encounter Summary ---
Author Organization [facility] Address [address] [place] [address] Care Team Providers Care Deposit Clerk Name Role Phone Adeola Villegas APRN Primary Care Provider [phone] Encounter Details Date Type Department Care Team (Late st Contact Info) Description 01/13/2023 Documentation Visit [facility] [address] [place], [place] [phone] Melissa Crespo, VIDYA Social History Tobacco Use [...] Info) Description 12/06/2024 6:45 EST [facility] [address] [place] [address] Carlota Jin MD 1 [facility], [facility] 2 [place] [phone] 12/08/2024 6:45 EST Treatment [facility] [address] [place] [id number] Carlota Jin MD 1 [facility], [facility] [address] [place] [phone] 12/11/2024 6:45 EST Treatment [facility] [place] [address] [place], [place] [id number] Carlota Jin MD 1 [facility] [address] [place] [phone] 12/13/2024 6:45 EST Treatment [facility] [place] [address] [place] [address] Carlota Jin MD 1 [facility] [address] [place] [phone] 12/15/2024 6:45 EST Treatment [facility] - [place] [address] [place], [place] [address] [phone] Carlota Jin MD 1 [facility], [facility] [address] [place] [phone] 12/18/2024 6:45 EST Treatment [facility] [place] [address] [place] [address] Carlota Jin MD 1 [facility] 2 [place] [phone] 12/20/2024 6:45 EST Treatment [facility] - [place] [address] [place], [place] [id number] Carlota Jin MD 1 [facility] [address] [place] [phone] 12/22/2024 6:45 EST Treatment [facility] - [place] [address] [place], [place] [id number] Carolta Jin MD 1 [facility], [facility] [address] [place] [phone] 12/25/2024 6:45 EST Treatment [facility] - [place] [address] [place], [place] [address] [phone] Carlota Jin MD 1 [facility], [address] [phone] 12/27/2024 6:45 EST Treatment [facility] [place] [address] [place], [place] [id number] Carlota Jin MD 1 [facility], [address] [phone] 12/29/2024 6:45 EST Treatment [facility] [place] [address] [place], [place] [id number] Carlota Jin MD 1 [facility], [address] [phone] 01/01/2025 6:45 EDT Treatment [facility] [place] [address] [place], [place] [id number] Carlota Jin MD 1 [facility], [address] [phone] 01/03/2025 6:45 EDT Treatment [facility] [place] [address] [place], [place] [id number] Carlota Jin MD 1 [facility], [facility] [address] [place] [phone] 01/05/2025 6:45 EDT Treatment [facility] [place] [address] [place], [place] [id number] Carlota Jin MD 1 [facility], [facility] 2 [place] [phone] 01/08/2025 6:45 EDT Treatment [facility] [place] [address] [place], [place] [id number] Carlota iJn MD 1 [facility], [facility] [address] [place] [phone] 01/10/2025 6:45 EDT Treatment [facility] [place] [address] [place] [address] Carlota Jin MD [address] [place] [address], [place] [facility] [address] [place] [phone] 01/12/2025 6:45 EDT Treatment [facility] [place] [address] [place], [place] [phone] Carlota Jin MD 1 [facility], [facility] [address] [place] [phone] 01/15/2025 6:45 EDT Treatment [facility] - [place] [address] [place], [place] [phone] Carlota Jin MD [address] [place] [address], [facility] [address] [place] [phone] 01/17/2025 6:45 EDT Treatment [facility] - [place] [address] [place], [place] [address] Carlota Jin MD 1 [facility], [facility] [address] [place] [phone] 01/19/2025 6:45 EDT Treatment [facility] [place] [address] [place], [place] [id number] Carlota Jin MD 1 [facility], [facility] 2 [place] [phone] 01/22/2025 6:45 EDT Treatment [facility] - [place] [address] [place], [place] [phone] Carlota Jin MD 1 [facility], [facility] 2 [place] [phone] 01/24/2025 6:45 EDT Treatment [facility] [place] [address] [place], [place] [id number] Carlota Jin MD 1 [facility], [address] [phone] 01/26/2025 6:45 EDT Treatment [facility] - [place] [address] [place], [place] [id number] Carlota Jin MD 1 [facility], [facility] [address] [place] [phone] 01/29/2025 6:45 EDT Treatment [facility] - [place] [address] [place], [place] [phone] Carlota Jin MD 1 [facility] 2 [place] [phone] 01/31/2025 6:45 EDT Treatment [facility] - [place] [address] [place], [place] [address] Carlota Jin MD 1 [facility] 2 [place] [phone] 02/02/2025 6:45 EDT Treatment [facility] - [place] [address] [place], [place] [id number] Carlota Jin MD 1 [facility], [facility] 2 [place] [phone] 02/05/2025 6:45 EDT Treatment [facility] - [place] [address] [place], [place] [id number] Carlota Jin MD 1 [facility] 2 [place] [phone] 02/07/2025 6:45 EDT Treatment [facility] [place] [address] [place] [address] Carlota Jin MD 1 [facility] 2 [place] [phone] 02/09/2025 6:45 EDT Treatment [facility] [address] [place], [place] [phone] Carlota Jin MD 1 [facility] [place] [facility] 2 [place] [phone] 02/12/2025 6:45 EDT Treatment [facility] [place] [address] [place], [place] [id number] Carlota Jin MD [address] [phone] 02/14/2025 6:45 EDT Treatment [facility] [place] [address] [place], [place] [phone] Carlota Jin MD [address] [place] [address] [phone] 02/16/2025 6:45 EDT Treatment [facility] - [place] [address] [place], [place] [id number] Carlota Jin MD [address] [place] [address] [phone] 02/19/2025 6:45 EDT Treatment [facility] [place] [address] [place], [place] [id number] Carlota Jin MD [address] [place] [address] [phone] 02/21/2025 6:45 EDT Treatment [facility] - [place] [address] [place], [place] [id number] Carlota Jin MD [address] [place] [address] [phone] documented as of this encounter Visit Diagnoses Not on filedocumented in this encounter Care Teams Deposit Clerk Relationship Specialty Start Date End Date Adeola Villegas APRN [address] [place] [address] PCP - General 10/12/16 07/06/23 documented as of this encounter
--- OUTSIDE RECORDS SUMMARY | 2024-12-05 12:29 | XMS_ITS | Encounter Summary ---
Author Organization [facility] Address [address] [place] [address] Care Team Providers Care Music Instructor Name Role Phone Adeola Villegas MONA Primary Care Provider [phone] Encounter Details Date Type Department Care Team (Late st Contact Info) Description 01/11/2023 Documentation Visit [facility] [address] [place], [place] [address] Melissa Crespo, RN Social History Tobacco Use Types Packs/Day Years Used Date Smoking Tobacco: Every Day Cigarettes Smokeless Tobacco: Never Sex and Gender Information Value Date Recorded Sex Assigned at Not on file Legal Sex Male 18:49 EST Gender Identity Male 07/07/2023 14:11 EDT Sexual Orientation Not on file documented as of this encounter Progress Notes * Melissa Crespo, RN - 01/11/2023 0931 EDT 01/11/23 9:34 [facility]ICATION RECONCILIATION Medication review of home medications (prescriptions, vppn-zvy-[id number], herbals, vitamin/mineral/dietary (nutritional) supplements, medical marijuana, and [...] 6:45 EST [facility] [address] [place], [place] [id number] Carlota Jin MD 1 [facility], [address] [phone] 12/08/2024 6:45 EST Treatment [facility] [address] [place], [place] [id number] Carlota Jin MD 1 [facility] [address] [place] [phone] 12/11/2024 6:45 EST Treatment [facility] [address] [place], [place] [id number] Carlota Jin MD 1 [facility] 2 [place] [phone] 12/13/2024 6:45 EST Treatment [facility] [place] [address] [place], [place] [id number] Carlota Jin MD 1 [facility], [facility] 2 [place] [phone] 12/15/2024 6:45 EST Treatment [facility] [place] [address] [place], [place] [id number] Carlota Jin MD 1 [facility], [facility] 2 [place] [phone] 12/18/2024 6:45 EST Treatment [facility] [place] [address] [place], [place] [id number] Carlota Jin MD 1 [facility], [facility] 2 [place] [phone] 12/20/2024 6:45 EST Treatment [facility] [place] [address] [place], [place] [id number] Carlota Jin MD 1 [facility], [facility] 2 [place] [phone] 12/22/2024 6:45 EST Treatment [facility] [place] [address] [place], [place] [id number] Carlota Jin MD 1 [facility], [facility] 2 [place] [phone] 12/25/2024 6:45 EST Treatment [facility] [place] [address] [place], [place] [id number] Carlota Jin MD 1 [facility], Level 2 [place] [phone] 12/27/2024 6:45 EST Treatment [facility] [place] [address] [place], [place] [address] Carlota Jin MD 1 [facility], [facility] 2 [place] [phone] 12/29/2024 6:45 EST Treatment [facility] [address] [place], [place] [id number] Carlota Jin MD 1 [facility], [facility] 2 [place] [phone] 01/01/2025 6:45 EDT Treatment [facility] [address] [place], [place] [id number] Carlota Jin MD 1 [facility], [facility] 2 [place] [phone] 01/03/2025 6:45 EDT Treatment [facility] [address] [place], [place] [id number] Carlota Jin MD 1 [facility], [facility] 2 [place] [phone] 01/05/2025 6:45 EDT Treatment [facility] [address] [place], [place] [id number] Carlota Jin MD 1 [facility], [facility] 2 [place] [phone] 01/08/2025 6:45 EDT Treatment [facility] [place] [address] [place], [place] [id number] Carlota Jin MD 1 [facility], [facility] 2 [place] [phone] 01/10/2025 6:45 EDT Treatment [facility] [place] [address] [place], [place] [id number] Carlota Jin MD 1 [facility], [facility] 2 [place] [phone] 01/12/2025 6:45 EDT Treatment [facility] [place] [address] [place], [place] [id number] Carlota Jin MD [address] [place] [address], [facility] 2 [place] [phone] 01/15/2025 6:45 EDT Treatment [facility] [place] [address] [place], [place] [id number] Carlota Jin MD 1 [facility], [facility] 2 [place] [phone] 01/17/2025 6:45 EDT Treatment [facility] [place] [address] [place], [place] [id number] Carlota Jin MD 1 [facility], [facility] 2 [place] [phone] 01/19/2025 6:45 EDT Treatment [facility] [place] [address] [place], [place] [id number] Carlota Jin MD 1 [facility], [facility] 2 [place] [phone] 01/22/2025 6:45 EDT Treatment [facility] [place] [address] [place], [place] [id number] Carlota Jin MD 1 [facility], [facility] 2 [place] [phone] 01/24/2025 6:45 EDT Treatment [facility] [place] [address] [place] [address] Carlota Jin MD 1 [facility], [address] [phone] 01/26/2025 6:45 EDT Treatment [facility] [place] [address] [place], [place] [id number] Carlota Jin MD 1 [facility], [address] [phone] 01/29/2025 6:45 EDT Treatment [facility] [place] [address] [place] [address] Carlota Jin MD 1 [facility], [facility] 2 [place] [phone] 01/31/2025 6:45 EDT Treatment [facility] [place] [address] [place], [place] [id number] Carlota Jin MD 1 [facility], [facility] 2 [place] [phone] 02/02/2025 6:45 EDT Treatment [facility] [place] [address] [place], [place] [address] Carlota Jin MD 1 [facility], [facility] 2 [place] [phone] 02/05/2025 6:45 EDT Treatment [facility] [place] [address] [place], [place] [address] Carlota Jin MD 1 [facility], [facility] 2 [place] [phone] 02/07/2025 6:45 EDT Treatment [facility] [place] [address] [place] [address] Carlota Jin MD 1 [facility], [address] [phone] 02/09/2025 6:45 EDT Treatment [facility] [place] [address] [place], [place] [address] Carlota Jin MD 1 [facility], [facility] 2 [place] [phone] 02/12/2025 6:45 EDT Treatment [facility] [place] [address] [place], [place] [id number] Carlota Jin MD 1 [facility], [facility] 2 [place] [phone] 02/14/2025 6:45 EDT Treatment [facility] [place] [address] [place], [place] [address] Carlota Jin MD 1 [facility], [facility] 2 [place] [phone] 02/16/2025 6:45 EDT Treatment [facility] [place] [address] [place], [place] [id number] Carlota Jin MD 1 [facility], [address] [phone] 02/19/2025 6:45 EDT Treatment [facility] [place] [address] [place], [place] [id number] Carlota Jin MD [address] [place] [address], [address] [phone] 02/21/2025 6:45 EDT Treatment [facility] [address] [place], [place] [id number] Carlota Jin MD [address] [place] [address], [address] [phone] documented as of this encounter Visit Diagnoses Not on filedocumented in this encounter Care Teams Music Instructor Relationship Specialty Start Date End Date Adeola Villegas APRN Mohit [address] [facility] [[email or web address] [address] [place], [place] [address] PCP - General 10/12/16 07/06/23 documented as of this encounter
--- OUTSIDE RECORDS SUMMARY | 2024-12-05 12:29 | XMS_ITS | Encounter Summary ---
Author Organization [facility] Address [address] [place] [address] Care Team Providers Care Plant General Manager Name Role Phone Adeola Villegas MONA Primary Care Provider [phone] Encounter Details Date Type Department Care Team (Late st Contact Info) Description 01/15/2023 7:[address] [facility] [address] [place], [place] [id number] Carlota Jin MD 1 [facility], Level [address] [place] [address] ESRD (end stage renal disease) ([facility]) (Primary Dx); Hypoalbuminemia; Encounter for immunization Social [...] - Temperature - - Respiratory Rate 18 01/15/2023 1120 EDT Oxygen Saturation - - Inhaled Oxygen Concentration - - Weight 89.2 kg (196 lb 10.4 oz) 01/15/2023 0705 EDT Height - - Body Mass Index - - documented in this encounter Miscellaneous Notes * Flowsheet Note - Melissa Crespo RN - 01/15/2023 1421 EDT 01/15/23 1120 Post-Hemodialysis Assessment Total Blood Processed (L) 90.34 Liters Dialyzer Clearance Lightly streaked Treatment UFR (ml:kg:hr) 7.77 ml:kg:hr Critline refill Not done Fluid Removed (L) 3 L Post-Dialysis Scale Weight 86.5 kg (190 lb 11.2 oz) Wheelchair Weight 0 kg (0 lb) Prosthesis Weight 0 kg (0 lb) Post-Treatment Weight (kg) 86.5 Treatment Weight Change (kg) 2.7 kg Day Target Weight (kg) 86.7 Post Sitting/Lying BP 130/78 Post Sitting/Lying pulse 69 Post Standing BP 140/78 Post Standing Pulse 69 Temp 36.6 ??C (97.9 ??F) Temp src Temporal Resp 18 Post access assessment Bruit present: Yes Thrill Present AVF/AFG Hemostasis achieved Yes Note Patient held sites for 10 mins Orientation Alert and Oriented x3 Yes Cooperative [...] Info) Description 12/06/2024 6:[address] [facility] [address] [place], [place] [id number] Carlota Jin MD [address] [place] [address], [facility] 2 [place] [phone] 12/08/2024 6:[address] [facility] [address] [place] [id number] Carlota Jin MD [address] [place] [address], [facility] 2 [place] [phone] 12/11/2024 6:45 EST Treatment [facility] [place] [address] [place], [place] [address] Carlota Jin MD 1 [facility], [facility] 2 [place] [phone] 12/13/2024 6:45 EST Treatment [facility] [place] [address] [place], [place] [id number] Carlota Jin MD 1 [facility], [facility] 2 [place] [phone] 12/15/2024 6:45 EST Treatment [facility] [place] [address] [place], [place] [id number] Carlota Jin MD 1 [facility], [facility] 2 [place] [phone] 12/18/2024 6:45 EST Treatment [facility] [place] [address] [place], [place] [id number] Carlota Jin MD 1 [facility], [facility] 2 [place] [phone] 12/20/2024 6:45 EST Treatment [facility] [place] [address] [place], [place] [id number] Carlota Jin MD 1 [facility], [facility] 2 [place] [phone] 12/22/2024 6:45 EST Treatment [facility] [place] [address] [place], [place] [id number] Carlota Jin MD 1 [facility], [facility] 2 [place] [phone] 12/25/2024 6:45 EST Treatment [facility] [place] [address] [place], [place] [id number] Carlota Jin MD 1 [facility], [facility] 2 [place] [phone] 12/27/2024 6:45 EST Treatment [facility] [address] [place], [place] [id number] Carlota Jin MD 1 [facility], [facility] 2 [place] [phone] 12/29/2024 6:45 EST Treatment [facility] [place] [address] [place], [place] [id number] Carlota Jin MD 1 [facility], [address] [phone] 01/01/2025 6:45 EDT Treatment [facility] [address] [place] [address] Carlota Jin MD 1 [facility], [facility] 2 [place] [phone] 01/03/2025 6:45 EDT Treatment [facility] [address] [place], [place] [id number] Carlota Jin MD 1 [facility], [facility] 2 [place] [phone] 01/05/2025 6:45 EDT Treatment [facility] [place] [address] [place], [place] [id number] Carlota Jin MD 1 [facility], [facility] 2 [place] [phone] 01/08/2025 6:45 EDT Treatment [facility] [place] [address] [place], [place] [id number] Carlota Jin MD [address] [place] [address], [address] [phone] 01/10/2025 6:45 EDT Treatment [facility] [place] [address] [place], [place] [address] Carlota Jin MD [address] [place] [address], [address] [phone] 01/12/2025 6:45 EDT Treatment [facility] [place] [address] [place], [place] [id number] Carlota Jin MD [address] [place] [address], [address] [phone] 01/15/2025 6:45 EDT Treatment [facility] [place] [address] [place], [place] [id number] Carlota Jin MD [address] [place] [address], [facility] 2 [place] [phone] 01/17/2025 6:45 EDT Treatment [facility] [place] [address] [place], [place] [id number] Carlota Jin MD 1 [facility], Level [address] [place] [phone] 01/19/2025 6:45 EDT Treatment [facility] [place] [address] [place], [place] [address] Carlota Jin MD 1 [facility], [facility] 2 [place] [phone] 01/22/2025 6:45 EDT Treatment [facility] [address] [place], [place] [id number] Carlota Jin MD 1 [facility], [facility] 2 [place] [phone] 01/24/2025 6:45 EDT Treatment [facility] [place] [address] [place] [address] Carlota Jin MD 1 [facility], [facility] 2 [place] [phone] 01/26/2025 6:45 EDT Treatment [facility] [address] [place], [place] [id number] Carlota Jin MD 1 [facility], [facility] 2 [place] [phone] 01/29/2025 6:45 EDT Treatment [facility] [address] [place], [place] [address] Carlota Jin MD 1 [facility], [facility] 2 [place] [phone] 01/31/2025 6:45 EDT Treatment [facility] [place] [address] [place], [place] [id number] Carlota Jin MD 1 [facility], [facility] 2 [place] [phone] 02/02/2025 6:45 EDT Treatment [facility] [place] [address] [place], [place] [id number] Carlota Jin MD 1 [facility], [facility] 2 [place] [phone] 02/05/2025 6:45 EDT Treatment [facility] [place] [address] [place] [address] Carlota Jin MD [address] [place] [address], [facility] 2 [place] [phone] 02/07/2025 6:45 EDT Treatment [facility] [place] [address] [place], [place] [address] Carlota Jin MD 1 [facility], [facility] 2 [place] [phone] 02/09/2025 6:45 EDT Treatment [facility] [place] [address] [place], [place] [id number] Carlota Jin MD 1 [facility], [facility] 2 [place] [phone] 02/12/2025 6:45 EDT Treatment [facility] [place] [address] [place], [place] [id number] Carlota Jin MD [address] [phone] 02/14/2025 6:45 EDT Treatment [facility] [place] [address] [place], [place] [id number] Carlota Jin MD [address] [phone] 02/16/2025 6:45 EDT Treatment [facility] [address] [place], [place] [id number] Carlota Jin MD [address] [place] [phone] 02/19/2025 6:45 EDT Treatment [facility] [place] [address] [place], [place] [id number] Carlota Jin MD [address] [phone] 02/21/2025 6:45 EDT Treatment [facility] [address] [place], [place] [id number] Carlota Jin MD [address] [phone] documented as of this encounter Procedures Procedure Name Priority Date/Time Associated Diagnosis Comments HEMODIALYSIS Routine 01/15/2023 7:05 EDT ESRD (end stage renal disease) ([facility]) documented in this encounter Visit Diagnoses Diagnosis ESRD (end stage renal disease) ([facility])- Primary End stage renal disease Hypoalbuminemia Other [...] intravenous, ONCE IN DIALYSIS, 1 dose, On Wed01/15/23 at 0730, Routine, DialysisIndications:Hypoalbumine bzoena,Encounter for immunization,ESRD (end stage renal disease) ([facility]) Given 01/15/2023 8:22 EDT 500 Units heparin injection 9,000 Units 9,000 Units, intravenous, ONCE IN DIALYSIS, 1 dose, On Wed01/15/23 at 0730, Routine, Dialysis, Now x1 bolus 4500 units to be given at the beginning of dialysis 1500 units/hour to be given over the course of dialysis (9000 units total). Stop 1 hour prior to end of treatment. To be administered per Policy [id number].Indications:Hypoalbumine bozena,Encounter for immunization,ESRD (end stage renal disease) ([facility]) Given 01/15/2023 7:19 EDT 9,000 Units nepro w/ carb steady bolus 237 mL 237 mL (1 Package), oral, ONCE IN DIALYSIS, 1 dose, On Wed01/15/23 at 0730, RoutineIndications:Hypoalbuminem ia,ESRD (end stage renal disease) ([facility]) Given 01/15/2023 8:22 EDT 237 mL documented in this encounter Orders Dialysis Count Last Ordered Date First Orde red Date HEMODIALYSIS 1 01/15/2023 documented in this encounter Care Teams Plant General Manager Relationship Specialty Start Date End Date Adeola Villegas APRN Mohit [address] [place] [address] PCP - General 10/12/16 07/06/23 documented as of this encounter
--- OUTSIDE RECORDS SUMMARY | 2024-12-05 12:29 | XMS_ITS | Encounter Summary ---
Author Organization [facility] Address [address] [place] [address] Care Team Providers Care Caramel Candy Maker Helper Name Role Phone Adeola Villegas APRN Primary Care Provider [phone] Encounter Details Date Type Department Care Team (Late st Contact Info) Description 01/08/2023 7:15 EDT Treatment [facility] [address] [place], [place] [id number] Carlota Jin MD 1 [facility], Level 2 [place] [address] ESRD (end stage renal disease) ([facility]) (Primary Dx); Hypoalbuminemia; Encounter for immunization [...] - Temperature - - Respiratory Rate 16 01/08/2023 0656 EDT Oxygen Saturation - - Inhaled Oxygen Concentration - - Weight 90.2 kg (198 lb 13.7 oz) 01/08/2023 0653 EDT Height - - Body Mass Index - - documented in this encounter Miscellaneous Notes * Flowsheet Note - Marcela Cox RN - 01/08/2023 1248 EDT 01/08/23 1113 Post-Hemodialysis Assessment Total Blood Processed (L) 89.7 Liters Dialyzer Clearance Lightly streaked Treatment UFR (ml:kg:hr) 10.86 ml:kg:hr Critline refill Not done Fluid Removed (L) 3.94 L Post-Dialysis Scale Weight 86.4 kg (190 lb 7.6 oz) Wheelchair Weight 0 kg (0 lb) Prosthesis Weight 0 kg (0 lb) Post-Treatment Weight (kg) 86.4 Treatment Weight Change (kg) 3.8 kg Day Target Weight (kg) 86.7 Post Sitting/Lying BP 126/65 Post Sitting/Lying pulse 62 Post Standing BP 108/56 Post Standing Pulse 65 Temp 36.1 ??C (97 ??F) Temp src Temporal Post access assessment AVF/AFG Hemostasis achieved Yes Note 10 min hold Orientation Alert and Oriented x3 Yes Cooperative Yes Disoriented No Discharge Ambulation Methods Ambulatory without assistance Wrap up items Patient Response to Treatment Tolerated tx well. Removed 3.94L out of original 4L UF goal without difficulty. UF off for last 10 min as pt reports cramping. Comments No issues during tx, no concerns voiced post tx. * Dialysis Rounding - Carlota Jin MD - 01/08/2023 0715 EDT TELEMEDICINE VIDEO VISIT Today's visit was provided through telemedicine video conferencing: I have reviewed the appropriateness of using video technology with the patient with regards to today's visit. The location of the patient : [facility] Patient location state: Visit Location State: [place] The location of the provider: Office Provider location state: Visit Location State: [place] The following people and their roles were present for today's visit: Appointment Provider: Carlota Jin MD RN Carlota Jin MD Dialysis Provider's Routine Assessment Gerson Bruner was seen and examined as appropriate during Dialysis. Pertinent lab results were reviewed. Changes since last visit: None Changes to current prescriptions/orders: None No acute issues The concept of ???Telemedicine?? has been described [...] copays, deductible or coinsurance for this service. Carlota Jin MD documented in this encounter Plan of Treatment Upcoming Encounters Date Type Department Care Team (Late st Contact Info) Description 12/06/2024 6:45 EST Treatment [facility] [address] [place], [place] [phone] Carlota Jin MD [address] [phone] 12/08/2024 6:45 EST Treatment [facility] [address] [place], [place] [id number] Carlota Jin MD [address] [phone] 12/11/2024 6:45 EST Treatment [facility] [address] [place], [place] [id number] Carlota Jin MD [address] [place] [phone] 12/13/2024 6:45 EST Treatment [facility] [address] [place], [place] [id number] Carlota Jin MD 1 [address] [place] [phone] 12/15/2024 6:45 EST Treatment [facility] [place] [address] [place], [place] [phone] Carlota Jin MD 1 [facility] 2 [place] [phone] 12/18/2024 6:45 EST Treatment [facility] [address] [place], [place] [phone] Carlota Jin MD 1 [facility], [facility] 2 [place] [phone] 12/20/2024 6:45 EST Treatment [facility] [address] [place], [place] [phone] Carlota Jin MD 1 [facility], [facility] 2 [place] [phone] 12/22/2024 6:45 EST Treatment [facility] [address] [place], [place] [phone] Carlota Jin MD 1 [facility], [facility] 2 [place] [phone] 12/25/2024 6:45 EST Treatment [facility] [address] [place], [place] [phone] Carlota Jin MD 1 [facility], [facility] 2 [place] [phone] 12/27/2024 6:45 EST Treatment [facility] [place] [address] [place], [place] [address] Carlota Jin MD 1 [facility], [facility] 2 [place] [phone] 12/29/2024 6:45 EST Treatment [facility] [place] [address] [place], [place] [id number] Carlota Jin MD 1 [facility], [facility] 2 [place] [phone] 01/01/2025 6:45 EDT Treatment [facility] [place] [address] [place], [place] [phone] Carlota Jin MD 1 [facility], [facility] 2 [place] [phone] 01/03/2025 6:45 EDT Treatment [facility] [place] [address] [place], [place] [phone] Carlota Jin MD 1 [facility], [facility] 2 [place] [phone] 01/05/2025 6:45 EDT Treatment [facility] [place] [address] [place], [place] [phone] Carlota Jin MD 1 [facility], [facility] 2 [place] [phone] 01/08/2025 6:45 EDT Treatment [facility] [place] [address] [place], [place] [phone] Carlota Jin MD 1 [facility], [facility] 2 [place] [phone] 01/10/2025 6:45 EDT Treatment [facility] [place] [address] [place], [place] [address] Carlota Jin MD 1 [facility], [facility] 2 [place] [phone] 01/12/2025 6:45 EDT Treatment [facility] [place] [address] [place], [place] [phone] Carlota Jin MD 1 [facility], [facility] 2 [place] [phone] 01/15/2025 6:45 EDT Treatment [facility] [place] [address] [place], [place] [phone] Carlota Jin MD 1 [facility], [facility] 2 [place] [phone] 01/17/2025 6:45 EDT Treatment [facility] [place] [address] [place], [place] [phone] Carlota Jin MD 1 [facility], [facility] 2 [place] [phone] 01/19/2025 6:45 EDT Treatment [facility] [place] [address] [place], [place] [address] Carlota Jin MD 1 [facility], [facility] 2 [place] [phone] 01/22/2025 6:45 EDT Treatment [facility] [place] [address] [place], [place] [phone] Carlota Jin MD 1 [facility], [facility] 2 [place] [phone] 01/24/2025 6:45 EDT Treatment [facility] [place] [address] [place], [place] [phone] Carlota Jin MD [address] [place] [address], [facility] 2 [place] [phone] 01/26/2025 6:45 EDT Treatment [facility] [place] [address] [place], [place] [phone] Carlota Jin MD [address] [place] [address], [address] [phone] 01/29/2025 6:45 EDT Treatment [facility] [place] [address] [place], [place] [phone] Carlota Jin MD [address] [place] [address], [facility] 2 [place] [phone] 01/31/2025 6:45 EDT Treatment [facility] [place] [address] [place], [place] [phone] Carlota Jin MD 1 [facility], [facility] 2 [place] [phone] 02/02/2025 6:45 EDT Treatment [facility] [place] [address] [place], [place] [phone] Carlota Jin MD 1 [facility], [facility] 2 [place] [phone] 02/05/2025 6:45 EDT Treatment [facility] [place] [address] [place], [place] [phone] Carlota Jin MD 1 [facility], [facility] 2 [place] [phone] 02/07/2025 6:45 EDT Treatment [facility] [place] [address] [place], [place] [phone] Carlota Jin MD 1 [facility], [facility] 2 [place] [phone] 02/09/2025 6:45 EDT Treatment [facility] [place] [address] [place] [address] Carlota Jin MD 1 [facility], [facility] 2 [place] [phone] 02/12/2025 6:45 EDT Treatment [facility] [place] [address] [place] [address] Carlota Jin MD 1 [facility], [facility] 2 [place] [phone] 02/14/2025 6:45 EDT Treatment [facility] [place] [address] [place], [place] [phone] Carlota Jin MD 1 [facility], [facility] 2 [place] [phone] 02/16/2025 6:45 EDT Treatment [facility] [address] [place], [place] [phone] Carlota Jin MD 1 [facility], [facility] 2 [place] [phone] 02/19/2025 6:45 EDT Treatment [facility] [place] [address] [place], [place] [phone] Carlota Jin MD [address] [place] [address], [facility] 2 [place] [phone] 02/21/2025 6:45 EDT Treatment [facility] [address] [place], [place] [phone] Carlota Jin MD [address] [place] [address], [address] [phone] documented as of this encounter Procedures Procedure Name Priority Date/Time Associated Diagnosis Comments HEMODIALYSIS Routine 01/08/2023 6:53 EDT ESRD (end stage renal disease) ([facility]) documented in this encounter Visit Diagnoses Diagnosis ESRD (end stage renal disease) ([facility])- Primary End stage renal disease Hypoalbuminemia [...] intravenous, ONCE IN DIALYSIS, 1 dose, On Wed01/08/23 at 0715, Routine, DialysisIndications:Hypoalbumine bozena,Encounter for immunization,ESRD (end stage renal disease) ([facility]) Given 01/08/2023 7:25 EDT 500 Units heparin injection 9,000 Units 9,000 Units, intravenous, ONCE IN DIALYSIS, 1 dose, On Wed01/08/23 at 0715, Routine, Dialysis, Now x1 bolus 4500 units to be given at the beginning of dialysis 1500 units/hour to be given over the course of dialysis (9000 units total). Stop 1 hour prior to end of treatment. To be administered per Policy [id number].Indications:Hypoalbumine bozena,Encounter for immunization,ESRD (end stage renal disease) ([facility]) Given 01/08/2023 7:10 EDT 9,000 Units nepro w/ carb steady bolus 237 mL 237 mL (1 Package), oral, ONCE IN DIALYSIS, 1 dose, On Wed01/08/23 at 0715, RoutineIndications:Hypoalbuminem ia,ESRD (end stage renal disease) ([facility]) Given 01/08/2023 7:25 EDT 237 mL documented in this encounter Orders Dialysis Count Last Ordered Date First Orde red Date HEMODIALYSIS 1 01/08/2023 documented in this encounter Care Teams Caramel Candy Maker Helper Relationship Specialty Start Date End Date Adeola Villegas APRN [address] [place] [address] PCP - General 10/12/16 07/06/23 documented as of this encounter
--- OUTSIDE RECORDS SUMMARY | 2024-12-05 12:29 | XMS_ITS | Encounter Summary ---
Author Organization [facility] Address [address] [place] [address] Care Team Providers Care Director Of Restaurant Name Role Phone Adeola Villegas APRN Primary Care Provider [phone] Encounter Details Date Type Department Care Team (Late st Contact Info) Description 01/01/2023 Documentation Visit [facility] Doctor's Common [address] [place] [address] [place] [address] [address], RD [address] [place] [address] Social History Tobacco Use Types Packs/Day Years [...] [facility] [place] [address] [place] [id number] Carlota Jin MD 1 [facility], Level 2 [place] [address] 12/08/2024 6:45 EST Treatment [facility] [place] [address] [place] [id number] Carlota Jin MD 1 [facility], [facility] 2 [place] [phone] 12/11/2024 6:45 EST Treatment [facility] [place] [address] [place], [place] [id number] Carlota Jin MD 1 [facility], [facility] 2 [place] [phone] 12/13/2024 6:45 EST Treatment [facility] [place] [address] [place], [place] [id number] Carlota Jin MD 1 [facility], [facility] 2 [place] [phone] 12/15/2024 6:45 EST Treatment [facility] [place] [address] [place], [place] [phone] Carlota Jin MD 1 [facility], [facility] 2 [place] [phone] 12/18/2024 6:45 EST Treatment [facility] [address] [place], [place] [id number] Carlota Jin MD 1 [facility], [facility] 2 [place] [phone] 12/20/2024 6:45 EST Treatment [facility] [address] [place], [place] [id number] Carlota Jin MD 1 [facility], [facility] 2 [place] [phone] 12/22/2024 6:45 EST Treatment [facility] [place] [address] [place], [place] [id number] Carlota Jin MD 1 [facility], [facility] 2 [place] [phone] 12/25/2024 6:45 EST Treatment [facility] [place] [address] [place], [place] [id number] Carlota Jin MD 1 [facility], [facility] 2 [place] [phone] 12/27/2024 6:45 EST Treatment [facility] [place] [address] [place], [place] [id number] Carlota Jin MD 1 [facility], [facility] 2 [place] [phone] 12/29/2024 6:45 EST Treatment [facility] [place] [address] [place], [place] [id number] Carlota Jin MD 1 [facility], [facility] 2 [place] [phone] 01/01/2025 6:45 EDT Treatment [facility] [place] [address] [place], [place] [id number] Carlota Jin MD 1 [facility], [facility] 2 [place] [phone] 01/03/2025 6:45 EDT Treatment [facility] [place] [address] [place], [place] [id number] Carlota Jin MD 1 [facility], [facility] 2 [place] [phone] 01/05/2025 6:45 EDT Treatment [facility] [place] [address] [place], [place] [address] Carlota Jin MD 1 [facility], [facility] 2 [place] [phone] 01/08/2025 6:45 EDT Treatment [facility] [place] [address] [place], [place] [id number] Carlota Jin MD 1 [facility], [facility] 2 [place] [phone] 01/10/2025 6:45 EDT Treatment [facility] [place] [address] [place], [place] [address] Carlota Jin MD 1 [facility], [facility] 2 [place] [phone] 01/12/2025 6:45 EDT Treatment [facility] [place] [address] [place] [address] Carlota Jin MD 1 [facility], [facility] 2 [place] [phone] 01/15/2025 6:45 EDT Treatment [facility] [place] [address] [place], [place] [address] Carlota Jin MD 1 [facility], [facility] 2 [place] [phone] 01/17/2025 6:45 EDT Treatment [facility] [place] [address] [place], [place] [id number] Carlota Jin MD 1 [facility], [facility] 2 [place] [phone] 01/19/2025 6:45 EDT Treatment [facility] [place] [address] [place], [place] [id number] Carlota Jin MD 1 [facility], [facility] 2 [place] [phone] 01/22/2025 6:45 EDT Treatment [facility] [place] [address] [place], [place] [id number] Carlota Jin MD 1 [facility], [facility] 2 [place] [phone] 01/24/2025 6:45 EDT Treatment [facility] [place] [address] [place], [place] [id number] Carlota Jin MD 1 [facility], [facility] 2 [place] [phone] 01/26/2025 6:45 EDT Treatment [facility] [place] [address] [place], [place] [id number] Carlota Jin MD 1 [facility], [facility] 2 [place] [phone] 01/29/2025 6:45 EDT Treatment [facility] [place] [address] [place], [place] [id number] Carlota Jin MD 1 [facility], [facility] 2 [place] [phone] 01/31/2025 6:45 EDT Treatment [facility] [place] [address] [place], [place] [id number] Carlota Jin MD 1 [facility], [facility] 2 [place] [phone] 02/02/2025 6:45 EDT Treatment [facility] [place] [address] [place], [place] [id number] Carlota Jin MD 1 [facility], [facility] 2 [place] [phone] 02/05/2025 6:45 EDT Treatment [facility] [place] [address] [place], [place] [id number] Carlota Jin MD 1 [facility], [facility] 2 [place] [phone] 02/07/2025 6:45 EDT Treatment [facility] [address] [place], [place] [id number] Carlota Jin MD 1 [facility], [facility] 2 [place] [phone] 02/09/2025 6:45 EDT Treatment [facility] [place] [address] [place], [place] [id number] Carlota Jin MD 1 [facility], [facility] 2 [place] [phone] 02/12/2025 6:45 EDT Treatment [facility] [place] [address] [place], [place] [id number] Carlota Jin MD 1 [facility], [address] [phone] 02/14/2025 6:45 EDT Treatment [facility] [place] [address] [place], [place] [id number] Carlota Jin MD 1 [facility], [address] [phone] 02/16/2025 6:45 EDT Treatment [facility] [place] [address] [place], [place] [id number] Carlota Jin MD [address] [place] [phone] 02/19/2025 6:45 EDT Treatment [facility] [place] [address] [place], [place] [id number] Carlota iJn MD [address] [phone] 02/21/2025 6:45 EDT Treatment [facility] [address] [place], [place] [id number] Carlota Jin MD 1 [facility], [address] [phone] documented as of this encounter Visit Diagnoses Not on filedocumented in this encounter Care Teams Director Of Restaurant Relationship Specialty Start Date End Date Adeola Villegas APRN [address] [place] [address] PCP - General 10/12/16 07/06/23 documented as of this encounter
--- OUTSIDE RECORDS SUMMARY | 2024-12-05 12:29 | XMS_ITS | Encounter Summary ---
Author Organization [facility] Address [address] [place] [address] Care Team Providers Care Hotel Service Supervisor Name Role Phone Adeola Villegas APRN Primary Care Provider [phone] Encounter Details Date Type Department Care Team (Late st Contact Info) Description 01/20/2023 7:15 EDT Treatment [facility] [address] [place], [place] [phone] Carlota Jin MD 1 [facility], Level [address] [place] [address] ESRD (end stage renal disease) ([facility]) (Primary Dx); Hypoalbuminemia; Encounter for [...] - Temperature - - Respiratory Rate 16 01/20/2023 0650 EDT Oxygen Saturation - - Inhaled Oxygen Concentration - - Weight 89.4 kg (197 lb 1.5 oz) 01/20/2023 0654 E DT Height - - Body Mass Index - - documented in this encounter Miscellaneous Notes * Flowsheet Note - Marcela Cox RN - 01/20/2023 1319 EDT 01/20/23 1109 Post-Hemodialysis Assessment Total Blood Processed (L) 90.35 Liters Dialyzer Clearance Lightly streaked Treatment UFR (ml:kg:hr) 9.05 ml:kg:hr Fluid Removed (L) 3.51 L Post-Dialysis Scale Weight 86.2 kg (190 lb 0.6 oz) Wheelchair Weight 0 kg (0 lb) Prosthesis Weight 0 kg (0 lb) Post-Treatment Weight (kg) 86.2 Treatment Weight Change (kg) 3.2 kg Day Target Weight (kg) 86.4 Post Sitting/Lying BP 127/70 Post Sitting/Lying pulse 60 Post Standing BP 122/66 Post Standing Pulse 66 Temp 35.9 ??C (96.6 ??F) Temp src [...] 12/06/2024 6:45 EST Treatment [facility] [place] [address] [place] [address] Carlota Jin MD [address] [place] [address], [facility] 2 [place] [phone] 12/08/2024 6:45 EST Treatment [facility] [place] [address] [place], [place] [address] Carlota Jin MD 1 [facility], [facility] 2 [place] [phone] 12/11/2024 6:45 EST Treatment [facility] [place] [address] [place] [id number] Carlota Jin MD 1 [facility], [facility] 2 [place] [phone] 12/13/2024 6:45 EST Treatment [facility] [place] [address] [place] [address] Carlota Jin MD 1 [facility], [facility] 2 [place] [phone] 12/15/2024 6:45 EST Treatment [facility] [place] [address] [place] [address] Carlota Jin MD 1 [facility], [facility] 2 [place] [phone] 12/18/2024 6:45 EST Treatment [facility] [place] [address] [place] [address] Carlota Jin MD 1 [facility], [facility] 2 [place] [phone] 12/20/2024 6:45 EST Treatment [facility] [place] [address] [place] [address] Carlota Jin MD 1 [facility], [facility] 2 [place] [phone] 12/22/2024 6:45 EST Treatment [facility] [place] [address] [place], [place] [id number] Carlota Jin MD 1 [facility], [facility] 2 [place] [phone] 12/25/2024 6:45 EST Treatment [facility] [place] [address] [place], [place] [id number] Carlota Jin MD 1 [facility], [facility] 2 [place] [phone] 12/27/2024 6:45 EST Treatment [facility] [place] [address] [place] [address] Cralota Jin MD 1 [facility], [facility] 2 [place] [phone] 12/29/2024 6:45 EST Treatment [facility] [place] [address] [place], [place] [address] [phone] Carlota Jin MD 1 [facility], [facility] 2 [place] [phone] 01/01/2025 6:45 EDT Treatment [facility] [place] [address] [place] [address] Carlota Jin MD 1 [facility], [facility] 2 [place] [phone] 01/03/2025 6:45 EDT Treatment [facility] [place] [address] [place], [place] [id number] Carlota Jin MD 1 [facility], [facility] 2 [place] [phone] 01/05/2025 6:45 EDT Treatment [facility] [place] [address] [place], [place] [address] Carlota Jin MD 1 [facility], [address] [phone] 01/08/2025 6:45 EDT Treatment [facility] [place] [address] [place], [place] [address] [phone] Carlota Jin MD 1 [facility], [address] [phone] 01/10/2025 6:45 EDT Treatment [facility] [place] [address] [place], [place] [address] Carlota Jin MD 1 [facility], [address] [phone] 01/12/2025 6:45 EDT Treatment [facility] [place] [address] [place] [address] Carlota Jin MD 1 [facility], [address] [phone] 01/15/2025 6:45 EDT Treatment [facility] [place] [address] [place], [place] [id number] Carlota Jin MD [address] [phone] 01/17/2025 6:45 EDT Treatment [facility] [place] [address] [place], [place] [id number] Carlota Jin MD 1 [facility], [address] [phone] 01/19/2025 6:45 EDT Treatment [facility] [place] [address] [place], [place] [phone] Carlota Jin MD 1 [facility], [facility] 2 [place] [phone] 01/22/2025 6:45 EDT Treatment [facility] [place] [address] [place], [place] [id number] Carlota Jin MD 1 [facility], [facility] 2 [place] [phone] 01/24/2025 6:45 EDT Treatment [facility] [place] [address] [place], [place] [id number] Carlota Jin MD 1 [facility], [facility] 2 [place] [phone] 01/26/2025 6:45 EDT Treatment [facility] [place] [address] [place], [place] [id number] Carlota Jin MD 1 [facility], [facility] 2 [place] [phone] 01/29/2025 6:45 EDT Treatment [facility] [place] [address] [place], [place] [id number] Carlota Jin MD 1 [facility], [facility] 2 [place] [phone] 01/31/2025 6:45 EDT Treatment [facility] [place] [address] [place], [place] [address] Carlota Jin MD 1 [facility], [facility] 2 [place] [phone] 02/02/2025 6:45 EDT Treatment [facility] [place] [address] [place], [place] [id number] Carlota Jin MD 1 [facility], [address] [phone] 02/05/2025 6:45 EDT Treatment [facility] [place] [address] [place], [place] [id number] Carlota Jin MD 1 [facility], [address] [phone] 02/07/2025 6:45 EDT Treatment [facility] [place] [address] [place], [place] [id number] Carlota Jin MD 1 [facility], [address] [phone] 02/09/2025 6:45 EDT Treatment [facility] [place] [address] [place], [place] [address] Carlota Jin MD 1 [facility], [facility] 2 [place] [phone] 02/12/2025 6:45 EDT Treatment [facility] [place] [address] [place], [place] [id number] Carlota Jin MD 1 [facility], [facility] 2 [place] [phone] 02/14/2025 6:45 EDT Treatment [facility] [place] [address] [place], [place] [id number] Carlota Jin MD 1 [facility], [address] [phone] 02/16/2025 6:45 EDT Treatment [facility] [place] [address] [place], [place] [id number] Carlota Jin MD 1 [facility], [address] [phone] 02/19/2025 6:45 EDT Treatment [facility] [place] [address] [place], [place] [id number] Carlota Jin MD 1 [facility], [address] [phone] 02/21/2025 6:45 EDT Treatment [facility] [place] [address] [place], [place] [address] Carlota Jin MD 1 [facility], [address] [phone] documented as of this encounter Procedures Procedure Name Priority Date/Time Associated Diagnosis Comments COMPLETE BLOOD COUNT Routine 01/20/2023 6:56 EDT Hypoalbuminemia Encounter for immunization ESRD (end stage renal disease) ([facility]) HEMODIALYSIS Routine 01/20/2023 6:50 EDT ESRD (end stage renal disease) ([facility]) documented in this encounter Results * (ABNORMAL) COMPLETE BLOOD COUNT (01/20/2023 6:56 EDT) WBC 7.37 4.00 - 10.40 K/cmm 01/20/2023 21:58 T [facility] RBC 3.48(L) 4.36 - 5.78 M/cmm 01/20/2023 21:58 [facility] Hemoglobin 11.0(L) 13.8 - 17.3 gm/dL 01/20/2023 21:58 [facility] HCT 33.5(L) 39.5 - 50.2 % 01/20/2023 21:58 [facility] MCV 96(H) 81 - 95 fl 01/20/2023 21:58 [facility] MCH 31.6 27.6 - 33.0 pg 01/20/2023 21:58 [facility] MCHC 32.8 32.8 - 36.4 gm/dL 01/20/2023 21:58 [facility] RDW-CV 12.8 <14.2 % 01/20/2023 21:58 [facility] RDW-SD 44.5 <46.0 fl 01/20/2023 21:58 [facility] PLT 277 141 - 377 K/cmm 01/20/2023 21:58 [facility] MPV 11.6 9.5 - 12.7 fl 01/20/2023 21:58 [facility] Blood VENOUS BLOOD / Unknown Venipuncture / Unknown 01/20/2023 6:56 EDT 01/20/2023 6:56 EDT us Carlota Jin MD HEMATOLOGY & PF4 ORDERABL ES Final Result [facility] [address] [place] [address] documented in this encounter Visit Diagnoses Diagnosis ESRD (end stage renal disease) ([facility])- Primary End stage renal disease Hypoalbuminemia [...] intravenous, ONCE IN DIALYSIS, 1 dose, On Wed01/20/23 at 0715, Routine, Dialysis, Now x1 bolus 4500 units to be given at the beginning of dialysis 1500 units/hour to be given over the course of dialysis (9000 units total). Stop 1 hour prior to end of treatment. To be administered per Policy [id number].Indications:Hypoalbumine bozena,Encounter for immunization,ESRD (end stage renal disease) ([facility]) Given 01/20/2023 7:05 EDT 9,000 Units nepro w/ carb steady bolus 237 mL 237 mL (1 Package), oral, ONCE IN DIALYSIS, 1 dose, On Wed01/20/23 at 0715, RoutineIndications:Hypoalbuminem ia,ESRD (end stage renal disease) ([facility]) Given 01/20/2023 7:24 EDT 237 mL documented in this encounter Orders Dialysis Count Last Ordered Date First Orde red Date HEMODIALYSIS 1 01/20/2023 documented in this encounter Care Teams Hotel Service Supervisor Relationship Specialty Start Date End Date Adeola Villegas APRN [address] [place] [address] PCP - General 10/12/16 07/06/23 documented as of this encounter
--- OUTSIDE RECORDS SUMMARY | 2024-12-05 12:30 | XMS_ITS | Encounter Summary ---
Author Organization [facility] Address [address] [place] [address] Care Team Providers Care Track Leader Name Role Phone Adeola Villegas APRN Primary Care Provider [phone] Encounter Details Date Type Department Care Team (Late st Contact Info) Description 12/23/2022 7:15 EST Treatment [facility] [address] [place], [place] [phone] Carlota Jin MD 1 [facility], Level [address] [place] [address] Hypoalbuminemia (Primary Dx); Encounter for immunization; ESRD (end stage renal disease) ([facility]) Social History Tobacco Use Types [...] - Temperature - - Respiratory Rate 18 12/23/2022 1112 EST Oxygen Saturation - - Inhaled Oxygen Concentration - - Weight 91.3 kg (201 lb 4.5 oz) 12/23/[address] Height - - Body Mass Index - - documented in this encounter Miscellaneous Notes * Flowsheet Note - Marcela Cox RN - 12/23/2022 1333 EST 12/23/22 1112 Post-Hemodialysis Assessment Total Blood Processed (L) 89.64 Liters Dialyzer Clearance Lightly streaked Treatment UFR (ml:kg:hr) 12.8 ml:kg:hr Critline refill Not done Fluid Removed (L) 3 L Post-Dialysis Scale Weight 88.2 kg (194 lb 7.1 oz) Wheelchair Weight 0 kg (0 lb) Prosthesis Weight 1.4 kg (3 lb 1.4 oz) Post-Treatment Weight (kg) 86.8 Treatment Weight Change (kg) 4.5 kg Day Target Weight (kg) 87.4 Post Sitting/Lying BP 156/82 Post Sitting/Lying pulse 70 Post Standing BP 144/77 Post Standing Pulse 77 Temp 36.2 ??C (97.2 ??F) Temp src Temporal Resp 18 Post access assessment Bruit present: Yes Thrill Present AVF/AFG Hemostasis achieved Yes Note 10 min hold by patient Orientation Alert and Oriented x3 Yes Cooperative [...] Contact Info) Description 12/06/2024 6:45 EST Treatment [facility] [address] [place], [place] [phone] Carlota Jin MD [address] [place] [address], [facility] 2 [place] [phone] 12/08/2024 6:45 EST Treatment [facility] [address] [place], [place] [phone] Carlota Jin MD 1 [facility], [facility] 2 [place] [phone] 12/11/2024 6:45 EST Treatment [facility] [place] [address] [place], [place] [address] Carlota Jin MD 1 [facility], [facility] 2 [place] [phone] 12/13/2024 6:45 EST Treatment [facility] [place] [address] [place], [place] [id number] Carlota Jin MD 1 [facility], [facility] 2 [place] [phone] 12/15/2024 6:45 EST Treatment [facility] [place] [address] [place], [place] [id number] Carlota Jin MD 1 [facility], [facility] 2 [place] [phone] 12/18/2024 6:45 EST Treatment [facility] [place] [address] [place], [place] [id number] Carlota Jin MD 1 [facility], [facility] 2 [place] [phone] 12/20/2024 6:45 EST Treatment [facility] [place] [address] [place], [place] [phone] Carlota Jin MD 1 [facility], [facility] 2 [place] [phone] 12/22/2024 6:45 EST Treatment [facility] [place] [address] [place], [place] [id number] Carlota Jin MD 1 [facility], [facility] 2 [place] [phone] 12/25/2024 6:45 EST Treatment [facility] [place] [address] [place], [place] [id number] Carlota Jin MD 1 [facility], [facility] 2 [place] [phone] 12/27/2024 6:45 EST Treatment [facility] [address] [place], [place] [id number] Carlota Jin MD 1 [facility], [facility] 2 [place] [phone] 12/29/2024 6:45 EST Treatment [facility] [address] [place], [place] [id number] Carlota Jin MD 1 [facility], [address] [phone] 01/01/2025 6:45 EDT [facility] [address] [place] [address] Carlota Jin MD 1 [facility], [facility] 2 [place] [phone] 01/03/2025 6:45 EDT [facility] [address] [place], [place] [id number] Carlota Jin MD 1 [facility], [facility] 2 [place] [phone] 01/05/2025 6:45 EDT Treatment [facility] [place] [address] [place], [place] [id number] Carlota Jin MD 1 [facility], [address] [phone] 01/08/2025 6:45 EDT Treatment [facility] [place] [address] [place], [place] [id number] Carlota Jin MD 1 [facility], [address] [phone] 01/10/2025 6:45 EDT Treatment [facility] [place] [address] [place], [place] [id number] Carlota Jin MD [address] [place] [address], [address] [phone] 01/12/2025 6:45 EDT Treatment [facility] [place] [address] [place], [place] [id number] Carlota Jin MD 1 [facility], [address] [phone] 01/15/2025 6:45 EDT Treatment [facility] [place] [address] [place], [place] [id number] Carlota Jin MD [address] [place] [address], [address] [phone] 01/17/2025 6:45 EDT Treatment [facility] [place] [address] [place], [place] [id number] Carlota Jin MD 1 [facility], Level [address] [place] [phone] 01/19/2025 6:45 EDT Treatment [facility] [place] [address] [place], [place] [address] Carlota Jin MD 1 [facility], [facility] 2 [place] [phone] 01/22/2025 6:45 EDT Treatment [facility] [place] [address] [place], [place] [id number] Carlota Jin MD 1 [facility], [facility] 2 [place] [phone] 01/24/2025 6:45 EDT Treatment [facility] [place] [address] [place], [place] [id number] Carlota Jin MD 1 [facility], [facility] 2 [place] [phone] 01/26/2025 6:45 EDT Treatment [facility] [address] [place], [place] [id number] Carlota Jin MD 1 [facility], [facility] 2 [place] [phone] 01/29/2025 6:45 EDT Treatment [facility] [address] [place], [place] [id number] Carlota Jin MD 1 [facility], [facility] 2 [place] [phone] 01/31/2025 6:45 EDT Treatment [facility] [place] [address] [place], [place] [id number] Carlota Jin MD 1 [facility], [facility] 2 [place] [phone] 02/02/2025 6:45 EDT Treatment [facility] [place] [address] [place], [place] [id number] Carlota Jin MD 1 [facility], [facility] 2 [place] [phone] 02/05/2025 6:45 EDT Treatment [facility] [place] [address] [place], [place] [id number] Carlota Jin MD 1 [facility], [facility] 2 [place] [phone] 02/07/2025 6:45 EDT Treatment [facility] [place] [address] [place], [place] [id number] Carlota Jin MD 1 [facility], [facility] 2 [place] [phone] 02/09/2025 6:45 EDT Treatment [facility] [place] [address] [place], [place] [id number] Carlota Jin MD 1 [facility], [facility] 2 [place] [phone] 02/12/2025 6:45 EDT Treatment [facility] [place] [address] [place], [place] [id number] Carlota Jin MD 1 [facility], [address] [phone] 02/14/2025 6:45 EDT Treatment [facility] [place] [address] [place], [place] [id number] Carlota Jin MD 1 [facility], [address] [phone] 02/16/2025 6:45 EDT Treatment [facility] [place] [address] [place], [place] [id number] Carlota Jin MD [address] [place] [phone] 02/19/2025 6:45 EDT Treatment [facility] [place] [address] [place], [place] [id number] Carlota Jin MD 1 [facility], [address] [phone] 02/21/2025 6:45 EDT Treatment [facility] [place] [address] [place], [place] [id number] Carlota Jin MD [address] [phone] documented as of this encounter Procedures Procedure Name Priority Date/Time Associated Diagnosis Comments COMPLETE BLOOD COUNT Routine 12/23/2022 6:56 EST Hypoalbuminemia Encounter for immunization ESRD (end stage renal disease) ([facility]) HEMODIALYSIS Routine 12/23/2022 6:50 EST Hypoalbuminemia Encounter for immunization ESRD (end stage renal disease) ([facility]) documented in this encounter Results * (ABNORMAL) COMPLETE BLOOD COUNT (12/23/2022 6:56 EST) WBC 8.96 4.00 - 10.40 K/cmm 12/23/2022 22:35 [facility] RBC 3.48(L) 4.36 - 5.78 M/cmm 12/23/2022 22:35 [facility] Hemoglobin 11.1(L) 13.8 - 17.3 gm/dL 12/23/2022 22:35 [facility] HCT 33.0(L) 39.5 - 50.2 % 12/23/2022 22:35 [facility] MCV 95 81 - 95 fl 12/23/2022 22:35 [facility] MCH 31.9 27.6 - 33.0 pg 12/23/2022 22:35 [facility] MCHC 33.6 32.8 - 36.4 gm/dL 12/23/2022 22:35 [facility] RDW-CV 13.0 <14.2 % 12/23/2022 22:35 [facility] RDW-SD 44.8 <46.0 fl 12/23/2022 22:35 [facility] PLT 286 141 - 377 K/cmm 12/23/2022 22:35 [facility] MPV 11.4 9.5 - 12.7 fl 12/23/2022 22:35 [facility] Blood VENOUS BLOOD / Unknown Venipuncture / Unknown 12/23/2022 6:56 EST 12/23/2022 6:56 EST us Carlota Jin MD HEMATOLOGY & PF4 ORDERABL ES Final Result [facility] [address] [place] [address] documented in this encounter Visit Diagnoses Diagnosis Hypoalbuminemia- Primary Other disorders of plasma protein metabolism Encounter for immunization Need for other specified prophylactic vaccination against single bacterial disease ESRD (end stage renal disease) ([facility]) End stage renal disease documented in this encounter Administered Medications Inactive Administered Medications - up to 3 most recent administrations Medication Order MAR Action Action Date Dose Rate Site epoetin ken (EPOGEN) 20,000 unit/2 mL injection 500 Units 500 Units, intravenous, ONCE IN DIALYSIS, 1 dose, On Wed12/23/22 at 0715, Routine, DialysisIndications:Hypoalbumine bozena,Encounter for immunization,ESRD (end stage renal disease) ([facility]) Given 12/23/2022 7:22 EST 500 Units heparin injection 9,000 Units 9,000 Units, intravenous, ONCE IN DIALYSIS, 1 dose, On Wed12/23/22 at 0715, Routine, Dialysis, Now x1 bolus 4500 units to be given at the beginning of dialysis 1500 units/hour to be given over the course of dialysis (9000 units total). Stop 1 hour prior to end of treatment. To be administered per Policy [id number].Indications:Hypoalbumine bozena,Encounter for immunization,ESRD (end stage renal disease) ([facility]) Given 12/23/2022 7:10 EST 9,000 Units documented in this encounter Orders Medications Ordered That Davide ht Not Have Been Administered Count Last Ordered Date First Ordered Date protein bar 1 Bar 1 12/23/2022 Dialysis Count Last Ordered Date First Orde red Date HEMODIALYSIS 1 12/23/2022 documented in this encounter Care Teams Track Leader Relationship Specialty Start Date End Date Adeola Villegas APRN [address] [place] [address] PCP - General 10/12/16 07/06/23 documented as of this encounter
--- OUTSIDE RECORDS SUMMARY | 2024-12-05 12:30 | XMS_ITS | Encounter Summary ---
Author Organization [facility] Address [address] [place] [address] Care Team Providers Care Hvac Specialist Name Role Phone Adeola Villegas APRN Primary Care Provider [phone] Encounter Details Date Type Department Care Team (Late Contact Info) Description 12/09/2022 Orders Only [facility] Doctor[facility] Common [address] [place] [address] Skye Gomez NP 1 [facility], [facility] [address] [place] [address] Social History Tobacco Use Types [...] Refills Last Filled Start Date End Date cholecalciferol, Vitamin D3, 25 mcg (1,000 unit) tablet Take 2 Tablets by mouth daily. 180 Tablet 3 12/09/2022 3 documented in this encounter Plan of Treatment Upcoming Encounters Date Type Department Care Team (Late Contact Info) Description 12/06/2024 6:45 EST Treatment [facility] - [facility] [address] [place] [address] Carlota Jin MD 1 [facility] [address] [place] [phone] 12/08/2024 6:45 EST Treatment [facility] D[facility]i - [place] [address] [place], [place] [id number] Carlota Jin MD 1 [facility], [facility] [address] [place] [phone] 12/11/2024 6:45 EST Treatment [facility] - Dent [address] [place], [place] [id number] Carlota Jin MD 1 [facility], [facility] [address] [place] [phone] 12/13/2024 6:45 EST Treatment [facility] - [place] [address] [place], [place] [id number] Carlota Jin MD 1 [facility], [facility] [address] [place] [phone] 12/15/2024 6:45 EST Treatment [facility] D[facility] [address] [place], [place] [id number] Carlota Jin MD 1 [facility], [facility] [address] [place] [phone] 12/18/2024 6:45 EST Treatment [facility] [address] [place], [place] [id number] Carlota Jin MD 1 [facility], [facility] [address] [place] [phone] 12/20/2024 6:45 EST Treatment [facility] D[facility] - Dent [address] [place], [place] [address] Carlota Jin MD 1 [facility], [facility] [address] [place] [phone] 12/22/2024 6:45 EST Treatment [facility] - Dent [address] [place], [place] [id number] Carlota Jin MD 1 [facility], [facility] [address] [place] [phone] 12/25/2024 6:45 EST Treatment [facility] - Dent [address] [place], [place] [id number] Carlota Jin MD 1 [facility], [facility] [address] [place] [phone] 12/27/2024 6:45 EST Treatment [facility] - Dent [address] [place], [place] [id number] Carlota Jin MD 1 [facility], [facility] [address] [place] [phone] 12/29/2024 6:45 EST Treatment [facility] - Dent [address] [place], [place] [id number] Carlota Jin MD 1 [facility], [facility] [address] [place] [phone] 01/01/2025 6:45 EDT Treatment [facility] - Dent [address] [place], [place] [id number] Carlota Jin MD 1 [facility], [facility] [address] [place] [phone] 01/03/2025 6:45 EDT Treatment [facility] - Dent [address] [place], [place] [address] Carlota Jin MD 1 [facility], [facility] [address] [place] [phone] 01/05/2025 6:45 EDT Treatment [facility] D[facility]ys[facility] - [place] [address] [place], [place] [id number] Carlota Jin MD 1 [facility], [facility] [address] [place] [phone] 01/08/2025 6:45 EDT Treatment [facility] - Dent [address] [place], [place] [id number] Carlota Jin MD 1 [facility], [facility] [address] [place] [phone] 01/10/2025 6:45 EDT Treatment [facility] - [place] [address] [place] [address] Carlota Jin MD 1 [facility], [facility] [address] [place] [phone] 01/12/2025 6:45 EDT Treatment [facility] - [place] [address] [place], [place] [address] Carlota Jin MD 1 [facility], [facility] [address] [place] [phone] 01/15/2025 6:45 EDT Treatment [facility] - Dent [address] [place], [place] [id number] Carlota Jin MD 1 [facility], [facility] [address] [place] [phone] 01/17/2025 6:45 EDT Treatment [facility] - Dent [address] [place], [place] [id number] Carlota Jin MD [address] [place] [address], [facility] [address] [place] [phone] 01/19/2025 6:45 EDT Treatment [facility] - Dent [address] [place], [place] [id number] Carlota Jin MD [address] [place] [address], [address] [phone] 01/22/2025 6:45 EDT Treatment [facility] - [place] [address] [place], [place] [id number] Carlota Jin MD [address] [place] [address], [facility] [address] [place] [phone] 01/24/2025 6:45 EDT Treatment [facility] - [place] [address] [place], [place] [id number] Carlota Jin MD 1 [facility], [facility] [address] [place] [phone] 01/26/2025 6:45 EDT Treatment [facility] - Dent [address] [place], [place] [id number] Carlota Jin MD 1 [facility], [facility] [address] [place] [phone] 01/29/2025 6:45 EDT Treatment [facility] - Dent [address] [place], [place] [id number] Carlota Jin MD 1 [facility], [facility] [address] [place] [phone] 01/31/2025 6:45 EDT Treatment [facility] - Dent [address] [place], [place] [id number] Carlota Jin MD 1 [facility], [facility] [address] [place] [phone] 02/02/2025 6:45 EDT Treatment [facility] - Dent [address] [place] [address] Carlota Jin MD 1 [facility], [facility] [address] [place] [phone] 02/05/2025 6:45 EDT Treatment [facility] D[facility]ys[facility] - [place] [address] [place] [address] Carlota Jin MD 1 [facility], [facility] [address] [place] [phone] 02/07/2025 6:45 EDT Treatment [facility] - Dent [address] [place], [place] [id number] Carlota Jin MD 1 [facility], [facility] [address] [place] [phone] 02/09/2025 6:45 EDT Treatment [facility] - Dent [address] [place], [place] [id number] Carlota Jin MD 1 [facility], [facility] [address] [place] [phone] 02/12/2025 6:45 EDT Treatment [facility] - Dent [address] [place], [place] [id number] Carlota Jin MD 1 [facility], [facility] [address] [place] [phone] 02/14/2025 6:45 EDT Treatment [facility] Dialys[facility] - [place] [address] [place], [place] [id number] Carlota Jin MD 1 [facility], [facility] [address] [place] [phone] 02/16/2025 6:45 EDT Treatment [facility] - Dent [address] [place], [place] [id number] Carlota Jin MD 1 [facility], [facility] [address] [place] [phone] 02/19/2025 6:45 EDT Treatment [facility] - Dent [address] [place], [place] [id number] Carlota Jin MD 1 [facility], [facility] [address] [place] [phone] 02/21/2025 6:45 EDT Treatment [facility] - Dent [address] [place] [address] Carlota Jin MD 1 [facility], Level [address] [place] [address] documented as of this encounter Visit Diagnoses Not on filedocumented in this encounter Care Teams Hvac Specialist Relationship Specialty Start Date End Date Adeola Villegas APRN [address] [facility] 1 [place] [address] PCP - General 10/12/16 07/06/23 documented as of this encounter
--- OUTSIDE RECORDS SUMMARY | 2024-12-05 12:30 | XMS_ITS | Encounter Summary ---
Author Organization [facility] Address [address] [place] [address] Care Team Providers Care Customer Care Consultant Name Role Phone Adeola Villegas APRN Primary Care Provider [phone] Encounter Details Date Type Department Care Team (Late st Contact Info) Description 12/25/2022 Orders Only [facility] [address] [place], [place] [phone] Yoanna Degroot, VIDYA Social History Tobacco Use [...] Contact Info) Description 12/06/2024 6:45 EST Treatment [facility] [address] [place] [address] Carlota Jin MD 1 [facility], [facility] 2 [place] [address] 12/08/2024 6:45 EST Treatment [facility] [address] [place] [id number] Carlota Jin MD [address] [place] [address], [facility] [address] [place] [phone] 12/11/2024 6:45 EST Treatment [facility] [place] [address] [place], [place] [id number] Carlota Jin MD 1 [facility] Level [address] [place] [phone] 12/13/2024 6:45 EST Treatment [facility] - [place] [address] [place] [address] Carlota Jin MD 1 [facility], [facility] [address] [place] [phone] 12/15/2024 6:45 EST Treatment [facility] - [place] [address] [place], [place] [address] [phone] Carlota Jin MD 1 [facility], [facility] [address] [place] [phone] 12/18/2024 6:45 EST Treatment [facility] [place] [address] [place] [address] Carlota Jin MD 1 [facility], [facility] [address] [place] [phone] 12/20/2024 6:45 EST Treatment [facility] - [place] [address] [place], [place] [id number] Carlota Jin MD 1 [facility], Level [address] [place] [phone] 12/22/2024 6:45 EST Treatment [facility] - [place] [address] [place], [place] [address] Carlota Jin MD 1 [facility], [facility] [address] [place] [phone] 12/25/2024 6:45 EST Treatment [facility] [place] [address] [place], [place] [address] [phone] Carlota Jin MD 1 [facility], [address] [phone] 12/27/2024 6:45 EST Treatment [facility] [place] [address] [place], [place] [id number] Carlota Jin MD 1 [facility], [address] [phone] 12/29/2024 6:45 EST Treatment [facility] [place] [address] [place], [place] [id number] Carlota Jin MD 1 [facility], [address] [phone] 01/01/2025 6:45 EDT Treatment [facility] [place] [address] [place], [place] [id number] Carlota Jin MD 1 [facility], [address] [phone] 01/03/2025 6:45 EDT Treatment [facility] [place] [address] [place], [place] [id number] Carlota Jin MD 1 [facility], [facility] 2 [place] [phone] 01/05/2025 6:45 EDT Treatment [facility] [place] [address] [place], [place] [id number] Carlota Jin MD 1 [facility], [facility] 2 [place] [phone] 01/08/2025 6:45 EDT Treatment [facility] - [place] [address] [place], [place] [id number] Carlota Jin MD 1 [facility], [facility] 2 [place] [phone] 01/10/2025 6:45 EDT Treatment [facility] [place] [address] [place] [address] aCrlota Jin MD [address] [place] [address], [facility] [address] [place] [phone] 01/12/2025 6:45 EDT Treatment [facility] [place] [address] [place], [place] [id number] Carlota Jin MD 1 [facility], [facility] 2 [place] [phone] 01/15/2025 6:45 EDT Treatment [facility] [place] [address] [place], [place] [id number] Carlota Jin MD [address] [place] [address], [facility] 2 [place] [phone] 01/17/2025 6:45 EDT Treatment [facility] [place] [address] [place], [place] [address] Carlota Jin MD 1 [facility], [facility] 2 [place] [phone] 01/19/2025 6:45 EDT Treatment [facility] [place] [address] [place], [place] [id number] Carlota Jin MD 1 [facility], [facility] 2 [place] [phone] 01/22/2025 6:45 EDT Treatment [facility] [place] [address] [place], [place] [id number] Carlota Jin MD 1 [facility], [facility] [address] [place] [phone] 01/24/2025 6:45 EDT Treatment [facility] - [place] [address] [place], [place] [id number] Carlota Jin MD 1 [facility], [address] [phone] 01/26/2025 6:45 EDT Treatment [facility] [place] [address] [place], [place] [id number] Carlota Jin MD 1 [facility], [facility] 2 [place] [phone] 01/29/2025 6:45 EDT Treatment [facility] [place] [address] [place], [place] [id number] Carlota Jin MD 1 [facility] 2 [place] [phone] 01/31/2025 6:45 EDT Treatment [facility] - [place] [address] [place], [place] [address] Carlota Jin MD 1 [facility], [facility] 2 [place] [phone] 02/02/2025 6:45 EDT Treatment [facility] - [place] [address] [place], [place] [id number] Carlota Jin MD 1 [facility], [facility] 2 [place] [phone] 02/05/2025 6:45 EDT Treatment [facility] - [place] [address] [place], [place] [id number] Carlota Jin MD 1 [facility], [facility] 2 [place] [phone] 02/07/2025 6:45 EDT Treatment [facility] [place] [address] [place] [address] Carlota Jin MD 1 [facility], [facility] 2 [place] [phone] 02/09/2025 6:45 EDT Treatment [facility] [address] [place], [place] [id number] Carlota Jin MD 1 [facility], [facility] 2 [place] [phone] 02/12/2025 6:45 EDT Treatment [facility] [place] [address] [place], [place] [id number] Carlota Jin MD [address] [phone] 02/14/2025 6:45 EDT Treatment [facility] [place] [address] [place], [place] [id number] Carlota Jin MD [address] [place] [phone] 02/16/2025 6:45 EDT Treatment [facility] [place] [address] [place], [place] [id number] Carlota Jin MD [address] [place] [phone] 02/19/2025 6:45 EDT Treatment [facility] [place] [address] [place], [place] [id number] Carlota Jin MD [address] [place] [phone] 02/21/2025 6:45 EDT Treatment [facility] [place] [address] [place], [place] [id number] Carlota Jin MD [address] [place] [phone] documented as of this encounter Visit Diagnoses Not on filedocumented in this encounter Care Teams Customer Care Consultant Relationship Specialty Start Date End Date Adeola Villegas APRN [address] [place] [address] PCP - General 10/12/16 07/06/23 documented as of this encounter
--- OUTSIDE RECORDS SUMMARY | 2024-12-05 12:30 | XMS_ITS | Encounter Summary ---
Author Organization [facility] Address [address] [place] [address] Care Team Providers Care Weigh Boss Name Role Phone Adeola Villegas APRN Primary Care Provider [phone] Encounter Details Date Type Department Care Team (Late st Contact Info) Description 12/11/2022 7:15 EST Treatment [facility] [address] [place], [place] [id number] Carlota Jin MD 1 [facility], Level 2 [place] [address] Hypoalbuminemia (Primary Dx); Encounter for immunization; ESRD (end stage renal disease) ([facility]) Social History Tobacco Use Types Packs/Day [...] - Temperature - - Respiratory Rate 12 12/11/2022 1109 EST Oxygen Saturation - - Inhaled Oxygen Concentration - - Weight 88.4 kg (194 lb 14.2 oz) 12/11/2022 0653 EST Height - - Body Mass Index - - documented in this encounter Miscellaneous Notes * Flowsheet Note - Marcela Cox RN - 12/11/2022 1257 EST 12/11/22 1109 Post-Hemodialysis Assessment Total Blood Processed (L) 90 Liters Dialyzer Clearance Lightly streaked Treatment UFR (ml:kg:hr) 4.01 ml:kg:hr Critline refill Negative (H1: 37.0 H2: 36.8) Fluid Removed (L) 1.5 L Post-Dialysis Scale Weight 87 kg (191 lb 12.8 oz) Wheelchair Weight 0 kg (0 lb) Prosthesis Weight 0 kg (0 lb) Post-Treatment Weight (kg) 87 Treatment Weight Change (kg) 1.4 kg Day Target Weight (kg) 87.4 Post Sitting/Lying BP 156/84 Post Sitting/Lying pulse 70 Post Standing BP 153/85 Post Standing Pulse 73 Temp 36.6 ??C [...] EST Treatment [facility] [address] [place], [place] [phone] Carlota Jin MD [address] [place] [address], [facility] 2 [place] [address] 12/08/2024 6:45 EST Treatment [facility] [address] [place], [place] [phone] Carlota Jin MD [address] [place] [address], [facility] 2 [place] [address] 12/11/2024 6:45 EST Treatment [facility] [place] [address] [place], [place] [address] Carlota Jin MD 1 [facility], [facility] 2 [place] [phone] 12/13/2024 6:45 EST Treatment [facility] [place] [address] [place], [place] [id number] Carlota Jin MD 1 [facility], [facility] 2 [place] [phone] 12/15/2024 6:45 EST Treatment [facility] [place] [address] [place], [place] [phone] Carlota Jin MD 1 [facility], [facility] 2 [place] [phone] 12/18/2024 6:45 EST Treatment [facility] [place] [address] [place], [place] [phone] Carlota Jin MD 1 [facility], [address] [phone] 12/20/2024 6:45 EST Treatment [facility] [place] [address] [place], [place] [id number] Carlota Jin MD 1 [facility], [facility] 2 [place] [phone] 12/22/2024 6:45 EST Treatment [facility] [place] [address] [place], [place] [phone] Carlota Jin MD 1 [facility] 2 [place] [phone] 12/25/2024 6:45 EST Treatment [facility] [place] [address] [place], [place] [phone] Carlota Jin MD 1 [facility], [facility] 2 [place] [phone] 12/27/2024 6:45 EST Treatment [facility] [place] [address] [place], [place] [phone] Carlota Jin MD 1 [facility], [address] [phone] 12/29/2024 6:45 EST Treatment [facility] [place] [address] [place], [place] [id number] Carlota Jin MD 1 [facility], [address] [phone] 01/01/2025 6:45 EDT Treatment [facility] [address] [place] [address] Carlota Jin MD 1 [facility], [facility] 2 [place] [phone] 01/03/2025 6:45 EDT Treatment [facility] [address] [place], [place] [phone] Carlota Jin MD 1 [facility], [facility] 2 [place] [phone] 01/05/2025 6:45 EDT Treatment [facility] [place] [address] [place], [place] [phone] Carlota Jin MD 1 [facility], [facility] 2 [place] [phone] 01/08/2025 6:45 EDT Treatment [facility] [place] [address] [place], [place] [id number] Carlota Jin MD 1 [facility], [facility] 2 [place] [phone] 01/10/2025 6:45 EDT Treatment [facility] [place] [address] [place], [place] [id number] Carlota Jin MD [address] [place] [address], [address] [phone] 01/12/2025 6:45 EDT Treatment [facility] [place] [address] [place], [place] [phone] Carlota Jin MD 1 [facility], [facility] 2 [place] [phone] 01/15/2025 6:45 EDT Treatment [facility] [place] [address] [place], [place] [phone] Carlota Jin MD 1 [facility], [facility] 2 [place] [phone] 01/17/2025 6:45 EDT Treatment [facility] [place] [address] [place], [place] [id number] Carlota Jin MD 1 [facility], [facility] 2 [place] [phone] 01/19/2025 6:45 EDT Treatment [facility] [place] [address] [place], [place] [address] Carlota Jin MD 1 [facility], [facility] 2 [place] [phone] 01/22/2025 6:45 EDT Treatment [facility] [place] [address] [place], [place] [id number] Carlota Jin MD 1 [facility], [facility] 2 [place] [phone] 01/24/2025 6:45 EDT Treatment [facility] [place] [address] [place] [address] Carlota Jin MD 1 [facility], [facility] 2 [place] [phone] 01/26/2025 6:45 EDT Treatment [facility] [address] [place] [address] Carlota Jin MD 1 [facility], [facility] 2 [place] [phone] 01/29/2025 6:45 EDT Treatment [facility] [place] [address] [place], [place] [phone] Carlota Jin MD 1 [facility], [facility] 2 [place] [phone] 01/31/2025 6:45 EDT Treatment [facility] [place] [address] [place], [place] [id number] Carlota Jin MD 1 [facility], [facility] 2 [place] [phone] 02/02/2025 6:45 EDT Treatment [facility] [place] [address] [place], [place] [id number] Carlota Jin MD 1 [facility], [facility] 2 [place] [phone] 02/05/2025 6:45 EDT Treatment [facility] [place] [address] [place] [address] Carlota Jin MD 1 [facility], [facility] 2 [place] [phone] 02/07/2025 6:45 EDT Treatment [facility] [place] [address] [place], [place] [phone] Carlota Jin MD 1 [facility], [facility] 2 [place] [phone] 02/09/2025 6:45 EDT Treatment [facility] [place] [address] [place], [place] [id number] Carlota Jin MD 1 [facility], [facility] 2 [place] [phone] 02/12/2025 6:45 EDT Treatment [facility] [place] [address] [place], [place] [phone] Carlota Jin MD 1 [facility], [address] [phone] 02/14/2025 6:45 EDT Treatment [facility] [place] [address] [place], [place] [phone] Carlota Jin MD 1 [facility], [address] [phone] 02/16/2025 6:45 EDT Treatment [facility] [place] [address] [place], [place] [id number] Carlota Jin MD [address] [place] [phone] 02/19/2025 6:45 EDT Treatment [facility] [place] [address] [place], [place] [id number] Carlota Jin MD 1 [facility], [address] [phone] 02/21/2025 6:45 EDT Treatment [facility] [address] [place], [place] [phone] Carlota Jin MD [address] [phone] documented as of this encounter Procedures Procedure Name Priority Date/Time Associated Diagnosis Comments HEMODIALYSIS Routine 12/11/2022 6:53 EST Hypoalbuminemia Encounter for immunization ESRD (end stage renal disease) ([facility]) documented in this encounter Visit Diagnoses Diagnosis Hypoalbuminemia- Primary Other disorders of plasma protein metabolism Encounter for immunization Need for other specified prophylactic vaccination against single bacterial disease ESRD (end stage renal disease) ([facility]) End stage renal disease documented in this encounter Administered Medications Inactive Administered Medications - up to 3 most recent administrations Medication Order MAR Action Action Date Dose Rate Site epoetin ken (EPOGEN) 20,000 unit/2 mL injection 500 Units 500 Units, intravenous, ONCE IN DIALYSIS, 1 dose, On Wed12/11/22 at 0715, Routine, DialysisIndications:Hypoalbumine bozena,Encounter for immunization,ESRD (end stage renal disease) ([facility]) Given 12/11/2022 7:14 EST 500 Units heparin injection 9,000 Units 9,000 Units, intravenous, ONCE IN DIALYSIS, 1 dose, On Wed12/11/22 at 0715, Routine, Dialysis, Now x1 bolus 4500 units to be given at the beginning of dialysis 1500 units/hour to be given over the course of dialysis (9000 units total). Stop 1 hour prior to end of treatment. To be administered per Policy PRIA420.Indications:Hypoalbumine bozena,Encounter for immunization,ESRD (end stage renal disease) ([facility]) Given 12/11/2022 7:10 EST 9,000 Units special k protein bar 1 Bar 1 Bar, oral, ONCE IN DIALYSIS, 1 dose, On Wed12/11/22 at 0715, RoutineIndications:Hypoalbuminem ia,ESRD (end stage renal disease) ([facility]) Given 12/11/2022 7:14 EST 1 Bar documented in this encounter Orders Dialysis Count Last Ordered Date First Orde red Date HEMODIALYSIS 1 12/11/2022 documented in this encounter Care Teams Weigh Boss Relationship Specialty Start Date End Date Adeola Villegas APRN [address] [place] [address] PCP - General 10/12/16 07/06/23 documented as of this encounter
--- OUTSIDE RECORDS SUMMARY | 2024-12-05 12:30 | XMS_ITS | Encounter Summary ---
Author Organization [facility] Address [address] [place] [address] Care Team Providers Care Process Camera Operator Name Role Phone Adeola Villegas APRN Primary Care Provider [phone] Encounter Details Date Type Department Care Team (Late st Contact Info) Description 12/21/2022 7:15 EST Treatment [facility] [address] [place], [place] [phone] Carlota Jin MD 1 [facility], Level 2 [place] [address] Hypoalbuminemia (Primary Dx); Encounter for immunization; ESRD (end stage renal disease) ([facility]) Social History [...] - Temperature - - Respiratory Rate 17 12/21/2022 1135 EST Oxygen Saturation - - Inhaled Oxygen Concentration - - Weight 90.3 kg (199 lb 1.2 oz) 12/21/[address] Height - - Body Mass Index - - documented in this encounter Miscellaneous Notes * Flowsheet Note - Marcela Cox RN - 12/21/2022 1229 EST 12/21/22 1135 Post-Hemodialysis Assessment Total Blood Processed (L) 91.61 Liters Dialyzer Clearance Lightly streaked Treatment UFR (ml:kg:hr) 8.78 ml:kg:hr Critline refill Not done Fluid Removed (L) 3 L Post-Dialysis Scale Weight 87.2 kg (192 lb 3.9 oz) Wheelchair Weight 0 kg (0 lb) Prosthesis Weight 0 kg (0 lb) Post-Treatment Weight (kg) 87.2 Treatment Weight Change (kg) 3.1 kg Day Target Weight (kg) 87.8 Post Sitting/Lying BP 154/78 Post Sitting/Lying pulse 68 Post Standing BP 137/76 Post Standing Pulse 72 Temp 36.7 ??C (98.1 ??F) Temp src Temporal Resp 17 Post access assessment Bruit present: Yes Thrill Present AVF/AFG Hemostasis achieved Yes Note 10min hold with blue clamps Orientation Alert and [...] EST Treatment [facility] [address] [place], [place] [phone] Carlota Jin MD [address] [place] [address], [facility] 2 [place] [address] 12/08/2024 6:45 EST Treatment [facility] [address] [place] [id number] Carlota Jin MD [address] [place] [address] 2 [place] [phone] 12/11/2024 6:45 EST Treatment [facility] [place] [address] [place], [place] [address] Carlota Jin MD 1 [facility], [facility] 2 [place] [phone] 12/13/2024 6:45 EST Treatment [facility] [address] [place], [place] [id number] Carlota Jin MD 1 [facility], [facility] 2 [place] [phone] 12/15/2024 6:45 EST Treatment [facility] [place] [address] [place], [place] [phone] Carlota Jin MD 1 [facility], [facility] 2 [place] [phone] 12/18/2024 6:45 EST Treatment [facility] [address] [place], [place] [id number] Carlota Jin MD 1 [facility], [address] [phone] 12/20/2024 6:45 EST Treatment [facility] [place] [address] [place], [place] [id number] Carlota Jin MD 1 [facility], [facility] 2 [place] [phone] 12/22/2024 6:45 EST Treatment [facility] [address] [place], [place] [id number] Carlota Jin MD 1 [facility], [facility] 2 [place] [phone] 12/25/2024 6:45 EST Treatment [facility] [address] [place], [place] [id number] Carlota Jin MD 1 [facility], [facility] 2 [place] [phone] 12/27/2024 6:45 EST Treatment [facility] [place] [address] [place], [place] [id number] Carlota Jin MD 1 [facility], [address] [phone] 12/29/2024 6:45 EST Treatment [facility] [address] [place], [place] [id number] Carlota Jin MD 1 [facility], [address] [phone] 01/01/2025 6:45 EDT Treatment [facility] [address] [place], [place] [id number] Carlota Jin MD 1 [facility], [facility] 2 [place] [phone] 01/03/2025 6:45 EDT Treatment [facility] [address] [place], [place] [id number] Carlota Jin MD 1 [facility], [facility] 2 [place] [phone] 01/05/2025 6:45 EDT Treatment [facility] [address] [place], [place] [id number] Carlota Jin MD 1 [facility], [facility] 2 [place] [phone] 01/08/2025 6:45 EDT Treatment [facility] [place] [address] [place], [place] [id number] Carlota Jin MD 1 [facility], [address] [phone] 01/10/2025 6:45 EDT Treatment [facility] [address] [place], [place] [id number] Carlota Jin MD 1 [facility], [address] [phone] 01/12/2025 6:45 EDT Treatment [facility] [place] [address] [place], [place] [id number] Carlota Jin MD 1 [facility], [address] [phone] 01/15/2025 6:45 EDT Treatment [facility] [address] [place], [place] [id number] Carlota Jin MD 1 [facility], [facility] 2 [place] [phone] 01/17/2025 6:45 EDT Treatment [facility] [address] [place], [place] [phone] Carlota Jin MD 1 [facility], [facility] 2 [place] [phone] 01/19/2025 6:45 EDT Treatment [facility] [place] [address] [place], [place] [address] Carlota Jin MD 1 [facility], [facility] 2 [place] [phone] 01/22/2025 6:45 EDT Treatment [facility] [address] [place], [place] [id number] Carlota Jin MD 1 [facility], [facility] 2 [place] [phone] 01/24/2025 6:45 EDT Treatment [facility] [place] [address] [place], [place] [address] Carlota Jin MD 1 [facility], [facility] 2 [place] [phone] 01/26/2025 6:45 EDT Treatment [facility] [address] [place] [address] Carlota Jin MD 1 [facility], [facility] 2 [place] [phone] 01/29/2025 6:45 EDT Treatment [facility] [address] [place], [place] [address] Carlota Jin MD 1 [facility], [facility] 2 [place] [phone] 01/31/2025 6:45 EDT Treatment [facility] [address] [place], [place] [id number] Carlota Jin MD 1 [facility], [facility] 2 [place] [phone] 02/02/2025 6:45 EDT Treatment [facility] - [place] [address] [place], [place] [id number] Carlota Jin MD [address] [place] [address], [address] [phone] 02/05/2025 6:45 EDT Treatment [facility] [address] [place], [place] [id number] Carlota Jin MD [address] [place] [address], [address] [phone] 02/07/2025 6:45 EDT Treatment [facility] - [place] [address] [place], [place] [id number] Carlota Jin MD [address] [place] [address], [facility] 2 [place] [phone] 02/09/2025 6:45 EDT Treatment [facility] - [place] [address] [place], [place] [id number] Carlota Jin MD 1 [facility], [facility] 2 [place] [phone] 02/12/2025 6:45 EDT Treatment [facility] [address] [place], [place] [id number] Carlota Jin MD 1 [facility], [address] [phone] 02/14/2025 6:45 EDT Treatment [facility] [address] [place], [place] [id number] Carlota Jin MD 1 [facility], [address] [phone] 02/16/2025 6:45 EDT Treatment [facility] [address] [place], [place] [id number] Carlota Jin MD [address] [place] [phone] 02/19/2025 6:45 EDT Treatment [facility] [address] [place], [place] [id number] Carlota Jin MD [address] [place] [phone] 02/21/2025 6:45 EDT [facility] [address] [place], [place] [id number] Carlota Jin MD 1 [facility], [address] [phone] documented as of this encounter Procedures Procedure Name Priority Date/Time Associated Diagnosis Comments HEMODIALYSIS Routine 12/21/2022 6:55 EST Hypoalbuminemia Encounter for immunization ESRD (end stage renal disease) ([facility]) documented in this encounter Visit Diagnoses Diagnosis Hypoalbuminemia- Primary Other disorders of plasma protein metabolism Encounter for immunization Need for other specified prophylactic vaccination against single bacterial disease ESRD (end stage renal disease) ([facility]) End stage renal disease documented in this encounter Administered Medications Inactive Administered Medications - up to 3 most recent administrations Medication Order MAR Action Action Date Dose Rate Site epoetin ken (EPOGEN) 20,000 unit/2 mL injection 500 Units 500 Units, intravenous, ONCE IN DIALYSIS, 1 dose, On Wed12/21/22 at 0715, Routine, DialysisIndications:Hypoalbumine bozena,Encounter for immunization,ESRD (end stage renal disease) ([facility]) Given 12/21/2022 7:29 EST 500 Units heparin injection 9,000 Units 9,000 Units, intravenous, ONCE IN DIALYSIS, 1 dose, On Wed12/21/22 at 0715, Routine, Dialysis, Now x1 bolus 4500 units to be given at the beginning of dialysis 1500 units/hour to be given over the course of dialysis (9000 units total). Stop 1 hour prior to end of treatment. To be administered per Policy [id number].Indications:Hypoalbumine bozena,Encounter for immunization,ESRD (end stage renal disease) ([facility]) Given 12/21/2022 7:05 EST 9,000 Units special k protein bar 1 Bar 1 Bar, oral, ONCE IN DIALYSIS, 1 dose, On Wed12/21/22 at 0715, RoutineIndications:Hypoalbuminem ia,ESRD (end stage renal disease) ([facility]) Given 12/21/2022 7:29 EST 1 Bar documented in this encounter Historical Medications * This list may reflect changes made after this encounter. predniSONE (DELTASONE) 20 mg tablet Take 40 mg by mouth. 12/19/2022 3 hydroCHLOROthiaz bernardino (HYDRODIURIL) 25 mg tablet 12/10/2022 3 furosemide (LASIX) 20 mg tablet Take 1 Tablet by mouth 2 times daily. 11/07/2021 3 azithromycin (ZITHROMAX) 250 mg tablet TAKE TWO TABLETS BY MOUTH AT ONCE ON THE FIRST DAY THEN TAKE ONE DAILY THEREAFTER 12/19/2022 3 added in this encounter Orders Dialysis Count Last Ordered Date First Orde red Date HEMODIALYSIS 1 12/21/2022 documented in this encounter Care Teams Process Camera Operator Relationship Specialty Start Date End Date Adeola Villegas APRN [address] [place] [address] PCP - General 10/12/16 07/06/23 documented as of this encounter
--- OUTSIDE RECORDS SUMMARY | 2024-12-05 12:30 | XMS_ITS | Encounter Summary ---
Author Organization [facility] Address [address] [place] [address] Care Team Providers Care Addiction Professional Name Role Phone Adeola Villegas APRN Primary Care Provider [phone] Encounter Details Date Type Department Care Team (Late st Contact Info) Description 12/14/2022 7:15 EST Treatment [facility] [address] [place], [place] [id number] Carlota Jin MD 1 [facility], [address] [place] [address] Hypoalbuminemia (Primary Dx); Encounter for immunization; ESRD (end stage renal disease) ([facility]) Social History [...] - Temperature - - Respiratory Rate 16 12/14/2022 0656 EST Oxygen Saturation - - Inhaled Oxygen Concentration - - Weight 91.7 kg (202 lb 2.6 oz) 12/14/[address] Height - - Body Mass Index - - documented in this encounter Miscellaneous Notes * Flowsheet Note - Melissa Crespo RN - 12/14/2022 1441 EST 12/14/22 1111 Post-Hemodialysis Assessment Total Blood Processed (L) 90.21 Liters Dialyzer Clearance Lightly streaked Treatment UFR (ml:kg:hr) 10.83 ml:kg:hr Fluid Removed (L) 4 L Post-Dialysis Scale Weight 87.8 kg (193 lb 9 oz) Wheelchair Weight 0 kg (0 lb) Prosthesis Weight 0 kg (0 lb) Post-Treatment Weight (kg) 87.8 Treatment Weight Change (kg) 3.9 kg Day Target Weight (kg) 88.2 Post Sitting/Lying BP 155/86 Post Sitting/Lying pulse 60 Post Standing BP 126/64 Post Standing Pulse 64 Temp 36.5 ??C (97.7 ??F) Temp [...] Dialysis Comprehensive - Carlota Jin MD - 12/14/2022 0715 EST Images from the original note were not included. Dialysis Provider's Monthly Comprehensive Assessment Dialysis Unit: [facility] ESRD Etiology: Type 2 diabetes mellitus with diabetic chronic kidney disease Patient Active Problem List Diagnosis ??? 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 ESRD (end stage renal disease) ([facility]) ([facility]) ??? Essential (primary) hypertension ??? Hearing loss ??? Herniation of lumbar intervertebral disc with radiculopathy ??? Hyperlipidemia ??? Proteinuria ??? Right sided numbness ??? Secondary hyperparathyroidism (HCC-CMS) ([facility]) ??? TIA (transient ischemic attack) ??? [...] modality. Transplantation: Patient Had Prior Transplant: No No flowsheet data found. Current Dialysis Prescription: Hemodialysis Therapy Plan In-Center [...] Yes Average Interdialytic Fluid Gains: InterDialytic +/- 12/09/2022 12/09/2022 12/09/2022 12/11/2022 12/11/2022 12/14/2022 12/14/2022 Gain/Loss 3.3 3.3 - 0.3 - 4.7 4.7 Wt (pre) 91.6 91.6 - 88.4 - 91.7 91.7 Wt (post) - - 88.1 - 87 - - Treatment UFR (ml:kg:hr) - - 9.89 - 4.01 - - BP (pre) 148/78 148/78 - 134/68 - - 162/79 BP (post) 165/87 165/87 - 137/82 - 171/98 171/98 Pulse (pre) 69 69 - 79 - - 66 Pulse(post) 67 67 - 75 - 64 64 Resp (/min) 16 - - 14 12 - 16 Volume and blood pressure have [...] Arteriovenous Access 02/13/19 (Active) AV Fistula Present 12/11/22699 Site Assessment Clean;Dry;Intact;Thrill felt;Bruit heard 12/11/22699 Current State Active 12/11/22699 Status Accessed 12/11/22699 Is Maturing N 12/11/22699 Local Anesthetic Topical 12/11/22699 Site Prep Betadine 12/11/22699 Venous Needle Size 15 G 12/11/22699 Arterial/Generic Needle Size 15 G 12/11/22699 Accessed by: Kari 12/11/22699 Access Attempts 1 12/11/22699 Dressing Status/Care Clean 12/11/22699 Patient has AVF/AVG as primary access: Yes [...] by mouth daily., Disp: , Rfl: ??? hydrOXYzine (ATARAX) [...] 1,600 mg by mouth 3 times daily. Has been instructed several times to pick this medication up at his pharmacy.), Disp: 540 Tablet, Rfl: 3 Adjustment made to home medication: No Dialysis Medication Review Dialysis Plan Order Summary All Current Orders Interval Duration Due Hemodialysis Therapy Plan Dialysis Treatment In-Center Hemodialysis 3 times a week Week of 12/13/2022 Routine, ONE TIME Starting when released Prescribed [...] - UF Profile: None Dialysis Last released: 12/14/2022 Medications acetaminophen (TYLENOL) tablet 650 mg PRN [...] of treatment. To be administered per Policy [id number]. Last released: Wed12/14/2022 sodium chloride 0.9 % BOLUS 100 mL PRN PRN 100 mL, intravenous, PRN Starting when released Until Discontinued, Other, hypotension or cramping,Dialysis Last released: Never Dialysis Weekly Labs Complete Blood Count Weekly: Wed12/16/2022 Routine, ONE TIME Starting when released, Blood, Venous, Blood Results Release to Patient (Note: Choosing Manual Release will only block results from tests performed at [facility] and does not apply for Miscellaneous Test Order): Immediate via MyChart Portal Dialysis Last released: Wed12/09/2022 Potassium Weekly: Wed11/16/2022 Routine, ONE TIME Starting when released, Blood, Venous, Blood Results Release to Patient (Note: Choosing Manual Release will only block results from tests performed at [facility] and does not apply for Miscellaneous Test Order): Immediate via MyChart Portal Dialysis Last released: Never Dialysis PRN Labs Postdialysis BUN with URR [...] On the Wed of every 1 month Wed12/28/2022 Routine, ONE TIME Starting when released, Blood, Venous, Blood Results Release to Patient (Note: Choosing Manual Release will only block results from tests [facility] and does not apply for Miscellaneous Test Order): Immediate via MyChart Portal Dialysis Last released: Wed11/30/2022 Dialysis Routine- Dialysis Use Only On the Wed of every 1 month Wed12/28/2022 Routine, ONE TIME Starting when released, Blood, Blood, Venous Results Release to Patient (Note: Choosing Manual Release will only block results from tests performed at [facility] and does not apply for Miscellaneous Test Order): Immediate via MyChart Portal Dialysis Last released: Wed11/30/2022 Postdialysis BUN with URR Calculation On the Mon of every 1 month Wed12/28/2022 Routine, ONE TIME Starting when released, Blood, Blood, Venous Results Release to Patient (Note: Choosing Manual Release will only block results from tests performed at [facility] and does not apply for Miscellaneous Test Order): Immediate via MyChart Portal Dialysis Last released: Wed11/30/2022 Dialysis Quarterly Labs PTH Intact On the Wed of every 3 months Wed02/22/2023 Routine, ONE TIME Starting when released, Blood, Venous, Blood Results Release to Patient (Note: Choosing Manual Release will only block results from tests performed at [facility] and does not apply for Miscellaneous Test Order): Immediate via MyChart Portal Dialysis Last released: Wed11/30/2022 Dialysis Annual Labs - October Dialysis Hepatitis- Dialysis Use Only On the Mon of every 12 months [facility] 10/25/2023 Routine, ONE TIME Starting when [...] On the Wed of every 12 months Wed04/26/2023 Routine, ONE TIME Starting when released, Blood, Venous, Blood Results Release to Patient (Note: Choosing Manual Release will only block results from tests performed at [facility] and does not apply for Miscellaneous Test Order): Immediate via MyChart Portal Dialysis Last released: Never HEMODIALYSIS [facility] Medications epoetin ken (EPOGEN) 20,000 unit/2 mL injection 500 Units 3 times a week Week of 12/13/2022 500 Units, intravenous, ONCE IN DIALYSIS Starting when released, Dialysis Last released: Wed12/14/2022 HEMODIALYSIS NUTRITIONAL SUPPLEMENTS Nutritional Supplements special k protein bar 1 Bar Every visit Every visit 1 Bar, oral, ONCE IN DIALYSIS Starting when released Last released: Wed12/14/2022 Adjustment made to dialysis medication: No Laboratory Results Dialysis Adequacy: spKt/V: 1.56 (Calculated from:; BUN Pre-Dialysis: 80 mg/dL at 11/30/2022 11:59; BUN Post-Dialysis: 22mg/dL at 11/30/2022 11:59; Pre-Treatment Weight (kg): 92.9 at 11/30/2022 7:02; Post-Treatment Weight (kg): 88.7 at 11/30/2022 11:14; Duration of Treatment (minutes): 243 minutes at 11/30/2022 11:14) Plan: Continue current dialysis prescription Anemia Management: Lab Results Component Value Date WBC 7.81 12/09/2022 HGB 10.7 (L) 12/09/2022 HGB 10.7 (L) 12/02/2022 HGB 10.7 (L) 11/25/2022 PLT 248 12/09/2022 FOLATE 17.3 11/16/2022 [id number] 11/16/2022 FERRITIN 708 (H) 11/30/2022 Current GEORGE/Dose: HEMODIALYSIS [facility] epoetin ken [...] Lab Results Component Value Date LABALBU 3.4 11/30/2022 ALKPHOS 82 11/30/2022 PHOS 7.7 (H) 11/30/2022 CALCIUM 8.5 11/30/2022 CALCCA 9.0 11/30/2022 PTH 341 (H) 11/30/2022 Vitamin D: cholecalciferol (Vitamin D3) - 25 mcg (1,000 unit) sevelamer hydrochloride - 800 mg This patient does not have an active medication from one of the medication groupers. Plan: Managed per protocol Potassium Management: Lab Results Component Value Date K 5.8 (H) 11/30/2022 Prescribed Potassium Concentrate: HEMODIALYSIS Ordered at: 12/14/22 0656 Dialysate concentrate: Potassium 2 mEq/L Calcium 2.5 mEq/L Last Dialysis Prescription released on: 12/14/2022 Selected bath: Potassium 2 mEq/L Calcium 2.5 mEq/L Some recent data might be hidden sevelamer hydrochloride - 800 mg Plan: Managed per protocol Nutrition: Lab Results Component Value Date LABALBU 3.4 11/30/2022 NA 135 (L) 11/30/2022 Protein Supplements: This patient does not have an active medication from one of the medication groupers. Plan: Managed per protocol Comments: No acute issues. He is still smoking so not eligible to be evaluated for transplant. We talked about this. Carlota Jin MD documented in this encounter Plan of Treatment Upcoming Encounters Date Type Department Care Team (Late st Contact Info) Description 12/06/2024 6:45 EST Treatment [facility] [place] [address] [place], [place] [id number] Carlota Jin MD [facility], [address] [place] [address] 12/08/2024 6:45 EST Treatment [facility] [address] [place] [id number] Carlota Jin MD 1 [facility], [address] [place] [phone] 12/11/2024 6:45 EST Treatment [facility] [place] [address] [place], [place] [address] Carlota Jin MD 1 [facility], [facility] 2 [place] [phone] 12/13/2024 6:45 EST Treatment [facility] [place] [address] [place], [place] [id number] Carlota Jin MD 1 [facility], [facility] 2 [place] [phone] 12/15/2024 6:45 EST Treatment [facility] [place] [address] [place], [place] [id number] Carlota Jin MD 1 [facility], [facility] 2 [place] [phone] 12/18/2024 6:45 EST Treatment [facility] [place] [address] [place] [address] Carlota Jin MD 1 [facility], [facility] 2 [place] [phone] 12/20/2024 6:45 EST Treatment [facility] [place] [address] [place], [place] [id number] Carlota Jin MD 1 [facility], [facility] 2 [place] [phone] 12/22/2024 6:45 EST Treatment [facility] [place] [address] [place], [place] [id number] Carlota Jin MD 1 [facility], [facility] 2 [place] [phone] 12/25/2024 6:45 EST Treatment [facility] [place] [address] [place], [place] [id number] Carlota Jin MD 1 [facility], [facility] 2 [place] [phone] 12/27/2024 6:45 EST Treatment [facility] [place] [address] [place], [place] [id number] Carlota Jin MD 1 [facility], [facility] 2 [place] [phone] 12/29/2024 6:45 EST Treatment [facility] [place] [address] [place], [place] [id number] Carlota Jin MD [address] [place] [address], [facility] [address] [place] [phone] 01/01/2025 6:45 EDT Treatment [facility] [place] [address] [place], [place] [id number] Carlota Jin MD 1 [facility], [facility] 2 [place] [phone] 01/03/2025 6:45 EDT Treatment [facility] [place] [address] [place], [place] [id number] Carlota Jin MD 1 [facility], [facility] 2 [place] [phone] 01/05/2025 6:45 EDT Treatment [facility] [place] [address] [place], [place] [address] Carlota Jin MD 1 [facility], [facility] 2 [place] [phone] 01/08/2025 6:45 EDT Treatment [facility] [place] [address] [place] [address] Carlota Jin MD 1 [facility], [facility] 2 [place] [phone] 01/10/2025 6:45 EDT Treatment [facility] [place] [address] [place] [address] Carlota Jin MD 1 [facility], [facility] 2 [place] [phone] 01/12/2025 6:45 EDT Treatment [facility] [place] [address] [place] [address] Carlota Jin MD 1 [facility], [facility] 2 [place] [phone] 01/15/2025 6:45 EDT Treatment [facility] [place] [address] [place], [place] [id number] Carlota Jin MD 1 [facility], [facility] 2 [place] [phone] 01/17/2025 6:45 EDT Treatment [facility] [place] [address] [place], [place] [id number] Carlota Jin MD 1 [facility], [facility] 2 [place] [phone] 01/19/2025 6:45 EDT Treatment [facility] [place] [address] [place], [place] [id number] Carlota Jin MD 1 [facility], [facility] 2 [place] [phone] 01/22/2025 6:45 EDT Treatment [facility] [place] [address] [place] [address] Carlota Jin MD 1 [facility], [address] [phone] 01/24/2025 6:45 EDT Treatment [facility] [place] [address] [place], [place] [id number] Carlota Jin MD 1 [facility], [facility] 2 [place] [phone] 01/26/2025 6:45 EDT Treatment [facility] [place] [address] [place], [place] [id number] Carlota Jin MD 1 [facility], [facility] 2 [place] [phone] 01/29/2025 6:45 EDT Treatment [facility] [place] [address] [place], [place] [address] Carlota Jin MD 1 [facility], [facility] 2 [place] [phone] 01/31/2025 6:45 EDT Treatment [facility] [place] [address] [place] [address] Carlota Jin MD 1 [facility], [facility] 2 [place] [phone] 02/02/2025 6:45 EDT Treatment [facility] [place] [address] [place], [place] [address] [phone] Carlota Jin MD 1 [facility], [facility] 2 [place] [phone] 02/05/2025 6:45 EDT Treatment [facility] [place] [address] [place] [address] Carlota Jin MD 1 [facility], [facility] 2 [place] [phone] 02/07/2025 6:45 EDT Treatment [facility] [place] [address] [place] [address] Carlota Jin MD 1 [facility], [facility] 2 [place] [phone] 02/09/2025 6:45 EDT Treatment [facility] [place] [address] [place], [place] [id number] Carlota Jin MD 1 [facility], [facility] 2 [place] [phone] 02/12/2025 6:45 EDT Treatment [facility] [place] [address] [place], [place] [id number] Carlota Jin MD 1 [facility], [address] [phone] 02/14/2025 6:45 EDT Treatment [facility] [place] [address] [place], [place] [phone] Carlota Jin MD [address] [phone] 02/16/2025 6:45 EDT Treatment [facility] [place] [address] [place], [place] [id number] Carlota Jin MD 1 [facility], [address] [phone] 02/19/2025 6:45 EDT Treatment [facility] [place] [address] [place], [place] [id number] Carlota Jin MD 1 [facility], [address] [phone] 02/21/2025 6:45 EDT Treatment [facility] [place] [address] [place], [place] [id number] Carlota Jin MD 1 [facility], [address] [phone] documented as of this encounter Procedures Procedure Name Priority Date/Time Associated Diagnosis Comments HEMODIALYSIS Routine 12/14/2022 6:56 EST Hypoalbuminemia Encounter for immunization ESRD (end stage renal disease) ([facility]) documented in this encounter Visit Diagnoses Diagnosis Hypoalbuminemia- Primary Other disorders of plasma protein metabolism Encounter for immunization Need for other specified prophylactic vaccination against single bacterial disease ESRD (end stage renal disease) ([facility]) End stage renal disease documented in this encounter Administered Medications Inactive Administered Medications - up to 3 most recent administrations Medication Order MAR Action Action Date Dose Rate Site epoetin ken (EPOGEN) 20,000 unit/2 mL injection 500 Units 500 Units, intravenous, ONCE IN DIALYSIS, 1 dose, On Wed12/14/22 at 0715, Routine, DialysisIndications:Hypoalbumine bozena,Encounter for immunization,ESRD (end stage renal disease) ([facility]) Given 12/14/2022 8:17 EST 500 Units heparin injection 9,000 Units 9,000 Units, intravenous, ONCE IN DIALYSIS, 1 dose, On Wed12/14/22 at 0715, Routine, Dialysis, Now x1 bolus 4500 units to be given at the beginning of dialysis 1500 units/hour to be given over the course of dialysis (9000 units total). Stop 1 hour prior to end of treatment. To be administered per Policy [id number].Indications:Hypoalbumine bozena,Encounter for immunization,ESRD (end stage renal disease) ([facility]) Given 12/14/2022 7:04 EST 9,000 Units special k protein bar 1 Bar 1 Bar, oral, ONCE IN DIALYSIS, 1 dose, On Wed12/14/22 at 0715, RoutineIndications:Hypoalbuminem ia,ESRD (end stage renal disease) ([facility]) Given 12/14/2022 8:17 EST 1 Bar documented in this encounter Orders Dialysis Count Last Ordered Date First Orde red Date HEMODIALYSIS 1 12/14/2022 documented in this encounter Care Teams Addiction Professional Relationship Specialty Start Date End Date Adeola Villegas APRN [address] [place] [address] PCP - General 10/12/16 07/06/23 documented as of this encounter
--- OUTSIDE RECORDS SUMMARY | 2024-12-05 12:30 | XMS_ITS | Encounter Summary ---
Author Organization [facility] Address [address] [place] [address] Care Team Providers Care Special Event Assistant Name Role Phone Adeola Villegas APRN Primary Care Provider [phone] Encounter Details Date Type Department Care Team (Late st Contact Info) Description 12/16/2022 Documentation Visit [facility] [address] [place], [place] [id number] Skye Gomez NP 1 [facility] [address] [place] [address] Social History Tobacco Use Types [...] [place] [facility] - [place] [address] [place], [place] [id number] Carlota Jin MD [address] [place] [address], [facility] [address] [place] [phone] 12/08/2024 6:45 EST Treatment [facility] - [place] [address] [place], [place] [id number] Carlota Jin MD 1 [facility], [facility] [address] [place] [phone] 12/11/2024 6:45 EST Treatment [facility] [place] [address] [place], [place] [id number] Carlota Jin MD 1 [facility], [facility] [address] [place] [phone] 12/13/2024 6:45 EST Treatment [facility] [place] [address] [place], [place] [id number] Carlota Jin MD 1 [facility], [facility] [address] [place] [phone] 12/15/2024 6:45 EST Treatment [facility] [place] [address] [place], [place] [id number] Carlota Jin MD 1 [facility], [address] [phone] 12/18/2024 6:45 EST Treatment [facility] [place] [address] [place], [place] [id number] Carlota Jin MD 1 [facility], [facility] [address] [place] [phone] 12/20/2024 6:45 EST Treatment [facility] [place] [address] [place], [place] [id number] Carlota Jin MD 1 [facility], [facility] [address] [place] [phone] 12/22/2024 6:45 EST Treatment [facility] - [place] [address] [place], [place] [id number] Carlota Jin MD 1 [facility], [facility] [address] [place] [phone] 12/25/2024 6:45 EST Treatment [facility] - [place] [address] [place], [place] [id number] Carlota Jin MD 1 [facility], [facility] [address] [place] [phone] 12/27/2024 6:45 EST Treatment [facility] - [place] [address] [place], [place] [address] [phone] Carlota Jin MD 1 [facility], [facility] [address] [place] [phone] 12/29/2024 6:45 EST Treatment [facility] [place] [address] [place] [address] Carlota Jin MD 1 [facility], [facility] [address] [place] [phone] 01/01/2025 6:45 EDT Treatment [facility] [place] [address] [place], [place] [phone] Carlota Jin MD 1 [facility], [facility] [address] [place] [phone] 01/03/2025 6:45 EDT Treatment [facility] [place] [address] [place], [place] [id number] Carlota Jin MD 1 [facility], [address] [phone] 01/05/2025 6:45 EDT Treatment [facility] [place] [address] [place] [address] Carlota Jin MD 1 [facility], [address] [phone] 01/08/2025 6:45 EDT Treatment [facility] - [place] [address] [place], [place] [id number] Carlota Jin MD 1 [facility], [address] [phone] 01/10/2025 6:45 EDT Treatment [facility] [place] [address] [place], [place] [id number] Carlota Jin MD 1 [facility], [address] [phone] 01/12/2025 6:45 EDT Treatment [facility] [place] [address] [place], [place] [id number] Carlota Jin MD [address] [phone] 01/15/2025 6:45 EDT Treatment [facility] [place] [address] [place], [place] [phone] Carlota Jin MD 1 [facility], [facility] [address] [place] [phone] 01/17/2025 6:45 EDT Treatment [facility] [place] [address] [place], [place] [id number] Carlota Jin MD 1 [facility], [facility] [address] [place] [phone] 01/19/2025 6:45 EDT Treatment [facility] [place] [address] [place], [place] [id number] Carlota Jin MD 1 [facility], [facility] [address] [place] [phone] 01/22/2025 6:45 EDT Treatment [facility] - [place] [address] [place], [place] [id number] Carlota Jin MD [address] [place] [address], [address] [phone] 01/24/2025 6:45 EDT Treatment [facility] [place] [address] [place], [place] [id number] Carlota Jin MD 1 [facility], [facility] [address] [place] [phone] 01/26/2025 6:45 EDT Treatment [facility] [place] [address] [place], [place] [id number] Carlota Jin MD 1 [facility], [facility] [address] [place] [phone] 01/29/2025 6:45 EDT Treatment [facility] [place] [address] [place], [place] [id number] Carlota Jin MD 1 [facility], [facility] [address] [place] [phone] 01/31/2025 6:45 EDT Treatment [facility] - [place] [address] [place], [place] [id number] Carlota Jin MD 1 [facility], [address] [phone] 02/02/2025 6:45 EDT Treatment [facility] - [place] [address] [place], [place] [id number] Carlota Jin MD 1 [facility], [address] [phone] 02/05/2025 6:45 EDT Treatment [facility] - [place] [address] [place], [place] [id number] Carlota Jin MD 1 [facility], [address] [phone] 02/07/2025 6:45 EDT Treatment [facility] [place] [address] [place], [place] [id number] Carlota Jin MD 1 [facility], [facility] [address] [place] [phone] 02/09/2025 6:45 EDT Treatment [facility] - [place] [address] [place], [place] [phone] Carlota Jin MD 1 [facility], [facility] [address] [place] [phone] 02/12/2025 6:45 EDT Treatment [facility] - [place] [address] [place], [place] [address] Carlota Jin MD 1 [facility], [facility] [address] [place] [phone] 02/14/2025 6:45 EDT Treatment [facility] [place] [address] [place], [place] [id number] Carlota Jin MD 1 [facility], [facility] [address] [place] [phone] 02/16/2025 6:45 EDT Treatment [facility] - [place] [address] [place], [place] [id number] Carlota Jin MD 1 [facility], [facility] [address] [place] [phone] 02/19/2025 6:45 EDT Treatment [facility] [place] [address] [place] [address] Carlota Jin MD 1 [facility], [facility] [address] [place] [phone] 02/21/2025 6:45 EDT Treatment [facility] [place] [address] [place], [place] [address] Carlota Jni MD 1 [facility], [facility] [address] [place] [phone] documented as of this encounter Visit Diagnoses Not on filedocumented in this encounter Care Teams Special Event Assistant Relationship Specialty Start Date End Date Adeola Villegas APRN [address] [place] [address] PCP - General 10/12/16 07/06/23 documented as of this encounter
--- OUTSIDE RECORDS SUMMARY | 2024-12-05 12:30 | XMS_ITS | Encounter Summary ---
Author Organization [facility] Address [address] [place] [address] Care Team Providers Care Financial Sales Manager Name Role Phone Adeola Villegas APRN Primary Care Provider [phone] Encounter Details Date Type Department Care Team (Late st Contact Info) Description 12/28/2022 7:15 EST Treatment [facility] [address] [place], [place] [id number] Carlota Jin MD 1 [facility], Level 2 [place] [address] ESRD (end stage renal disease) ([facility]) (Primary Dx); Hypoalbuminemia; Encounter for immunization [...] - Temperature - - Respiratory Rate 12 12/28/2022 1106 EST Oxygen Saturation - - Inhaled Oxygen Concentration - - Weight 90.4 kg (199 lb 4.7 oz) 12/28/[address] Height - - Body Mass Index - - documented in this encounter Miscellaneous Notes * Flowsheet Note - Melissa Crespo RN - 12/28/2022 1435 EST 12/28/22 1106 Post-Hemodialysis Assessment Total Blood Processed (L) 90.4 Liters Dialyzer Clearance Lightly streaked Treatment UFR (ml:kg:hr) 9.47 ml:kg:hr Critline refill Positive (H1: 37.7 H2: 37.2) Fluid Removed (L) 3.5 L Post-Dialysis Scale Weight 87.1 kg (192 lb 0.3 oz) Wheelchair Weight 0 kg (0 lb) Prosthesis Weight 0 kg (0 lb) Post-Treatment Weight (kg) 87.1 Treatment Weight Change (kg) 3.3 kg Day Target Weight (kg) 87.4 Post Sitting/Lying BP 139/72 Post Sitting/Lying pulse 70 Post Standing BP 137/74 Post Standing Pulse 75 Temp 36.1 ??C (97 ??F) Temp src Temporal Resp 12 Post access assessment Bruit present: Yes Thrill Present AVF/AFG Hemostasis achieved Yes Note HOLD TIME: 10mins Orientation Alert and Oriented x3 Yes Cooperative Yes Disoriented No Discharge Ambulation Methods Ambulatory without assistance Wrap up items Patient Response to Treatment Tolerated tx. Removed 3500 UF goal. (see above for details.) CritlineRefill is Positive and we will continue to attmept to get pt to TW by end of week. Comments No issues during tx, No concerns voiced post tx. Stable upon DC from unit. documented in this encounter Plan of Treatment Upcoming Encounters Date Type Department Care Team (Late st Contact Info) Description 12/06/2024 6:45 EST Treatment [facility] [address] [place] [address] Carlota Jin MD [address] [place] [address], [facility] [address] [place] [phone] 12/08/2024 6:45 EST Treatment [facility] [address] [place], [place] [address] Carlota Jin MD [address] [place] [address], [facility] [address] [place] [phone] 12/11/2024 6:45 EST Treatment [facility] [address] [place], [place] [id number] Carlota Jin MD 1 [facility], [facility] [address] [place] [phone] 12/13/2024 6:45 EST Treatment [facility] [address] [place], [place] [id number] Carlota Jin MD 1 [facility], [facility] [address] [place] [phone] 12/15/2024 6:45 EST Treatment [facility] [address] [place] [address] Carlota Jin MD 1 [facility], [facility] [address] [place] [phone] 12/18/2024 6:45 EST Treatment [facility] [place] [address] [place], [place] [id number] Carlota Jin MD 1 [facility], [facility] [address] [place] [phone] 12/20/2024 6:45 EST Treatment [facility] [address] [place], [place] [id number] Carlota Jin MD 1 [facility], [facility] [address] [place] [phone] 12/22/2024 6:45 EST Treatment [facility] [place] [address] [place], [place] [address] Carlota Jin MD 1 [facility], [facility] [address] [place] [phone] 12/25/2024 6:45 EST Treatment [facility] [address] [place], [place] [id number] Carlota Jin MD 1 [facility], [facility] [address] [place] [phone] 12/27/2024 6:45 EST Treatment [facility] [address] [place], [place] [id number] Carlota Jin MD 1 [facility], [facility] [address] [place] [phone] 12/29/2024 6:45 EST Treatment [facility] [address] [place], [place] [id number] Carlota Jin MD [address] [phone] 01/01/2025 6:45 EDT Treatment [facility] [address] [place], [place] [id number] Carlota Jin MD 1 [facility] 2 [place] [phone] 01/03/2025 6:45 EDT Treatment [facility] [address] [place], [place] [id number] Carlota Jin MD 1 [facility], [facility] [address] [place] [phone] 01/05/2025 6:45 EDT Treatment [facility] [place] [address] [place], [place] [id number] Carlota Jin MD 1 [facility], [facility] [address] [place] [phone] 01/08/2025 6:45 EDT Treatment [facility] [place] [address] [place], [place] [id number] Carlota Jin MD 1 [facility], [facility] [address] [place] [phone] 01/10/2025 6:45 EDT Treatment [facility] [address] [place], [place] [id number] Carlota Jin MD 1 [facility], [facility] [address] [place] [phone] 01/12/2025 6:45 EDT Treatment [facility] [place] [address] [place] [address] Carlota Jin MD 1 [facility], [facility] [address] [place] [phone] 01/15/2025 6:45 EDT Treatment [facility] [address] [place], [place] [id number] Carlota Jin MD 1 [facility], [facility] [address] [place] [phone] 01/17/2025 6:45 EDT Treatment [facility] [address] [place], [place] [id number] Carlota Jin MD 1 [facility], [facility] [address] [place] [phone] 01/19/2025 6:45 EDT Treatment [facility] [place] [address] [place], [place] [id number] Carlota Jin MD [address] [place] [address], [address] [phone] 01/22/2025 6:45 EDT Treatment [facility] [place] [address] [place], [place] [id number] Carlota Jin MD [address] [place] [address], [address] [phone] 01/24/2025 6:45 EDT Treatment [facility] [place] [address] [place], [place] [id number] Carlota Jin MD [address] [place] [address], [facility] [address] [place] [phone] 01/26/2025 6:45 EDT Treatment [facility] [address] [place], [place] [id number] Carlota Jin MD [address] [place] [address], [facility] [address] [place] [phone] 01/29/2025 6:45 EDT Treatment [facility] [address] [place], [place] [id number] Carlota Jin MD 1 [facility], Level [address] [place] [phone] 01/31/2025 6:45 EDT Treatment [facility] [address] [place], [place] [address] Carlota Jin MD 1 [facility], [facility] [address] [place] [phone] 02/02/2025 6:45 EDT Treatment [facility] [address] [place], [place] [id number] Carlota Jin MD 1 [facility], [facility] [address] [place] [phone] 02/05/2025 6:45 EDT Treatment [facility] [address] [place] [address] Carlota Jin MD 1 [facility], [facility] [address] [place] [phone] 02/07/2025 6:45 EDT Treatment [facility] [address] [place], [place] [id number] Carlota Jin MD 1 [facility], [facility] [address] [place] [phone] 02/09/2025 6:45 EDT Treatment [facility] [address] [place], [place] [id number] Carlota Jin MD 1 [facility], [facility] [address] [place] [phone] 02/12/2025 6:45 EDT Treatment [facility] [address] [place], [place] [id number] Carlota Jin MD 1 [facility], [address] [phone] 02/14/2025 6:45 EDT Treatment [facility] [place] [address] [place], [place] [id number] Carlota Jin MD [address] [place] [phone] 02/16/2025 6:45 EDT Treatment [facility] [address] [place], [place] [id number] Carlota Jin MD [address] [place] [phone] 02/19/2025 6:45 EDT Treatment [facility] [address] [place], [place] [id number] Carlota Jin MD [address] [place] [phone] 02/21/2025 6:45 EDT Treatment [facility] [address] [place], [place] [id number] Carlota Jin MD [address] [phone] documented as of this encounter Procedures Procedure Name Priority Date/Time Associated Diagnosis Comments POSTDIALYSIS BUN WITH URR CALCULATION Routine 12/28/2022 11:21 EST Hypoalbuminemia Encounter for immunization ESRD (end stage renal disease) ([facility]) TRANSFERRIN SATURATION Routine 12/28/2022 7:09 EST Hypoalbuminemia Encounter for immunization ESRD (end stage renal disease) ([facility]) DIALYSIS ROUTINE - DIALYSIS ONLY (BUN, K, NA, CL, CO2, SANJEEV, ALB, MG, PHOS, ALKP, AST) Routine 12/28/2022 7:09 EST Hypoalbuminemia Encounter for immunization ESRD (end stage renal disease) ([facility]) PROFILE IRON STUDIES (INCLUDES IRON, IBC, AND FERRITIN) Routine 12/28/2022 7:09 EST Hypoalbuminemia Encounter for immunization ESRD (end stage renal disease) ([facility]) FERRITIN Routine 12/28/2022 7:09 EST Hypoalbuminemia Encounter for immunization ESRD (end stage renal disease) ([facility]) HEMODIALYSIS Routine 12/28/2022 6:58 EST ESRD (end stage renal disease) ([facility]) documented in this encounter Results * (ABNORMAL) POSTDIALYSIS BUN WITH URR CALCULATION (12/28/2022 11:21 EST) BUN, Postdialysis 21 10 - 26 mg/dL 12/28/2022 21:47 EST [facility] Urea Reduction Rate 72.4 Not Established % 12/28/2022 21:47 EST [facility] Comment: NOTE: Reference range not established for Urea Reduction Rate. BUN 76(H) 10 - 26 mg/dL 12/28/2022 21:47 EST [facility] Blood VENOUS BLOOD / Unknown Venipuncture / Unknown 12/28/2022 11:21 EST 12/28/2022 11:21 EST us Carlota Jin MD CHEMISTRY & BLOOD GAS ORD ERABLES Final Result [facility] [address] [place] [address] * (ABNORMAL) FERRITIN (12/28/2022 7:09 EST) Pathologist [facility] Ferritin 762(H) 22 - 322 ng/mL 12/29/2022 0:26 EST [facility] Blood VENOUS BLOOD / Unknown Venipuncture / Unknown 12/28/2022 7:09 EST 12/28/2022 7:09 EST Carlota Jin MD CHEMISTRY & BLOOD GAS ORD ERABLES Final Result Performing Organization Address [facility] Co de Phone Number [facility] [address] [place] [address] * (ABNORMAL) TRANSFERRIN SATURATION (12/28/2022 7:09 EST) [facility] Iron 57 49 - 181 ??g/dL 12/28/2022 21:52 [facility] Iron Binding Capacity 196(L) 240 - 450 ??g/dL 12/28/2022 21:52 [facility] Transferrin Saturation 29 15 - 45 % 12/28/2022 21:52 [facility] Blood VENOUS BLOOD / Unknown Venipuncture / Unknown 12/28/2022 7:09 EST 12/28/2022 7:09 EST Carlota Jin MD CHEMISTRY & BLOOD GAS ORD ERABLES Final Result Performing Organization Address [facility] de Phone Number [facility] [address] [place] [address] * (ABNORMAL) DIALYSIS ROUTINE - DIALYSIS ONLY (BUN, K, NA, CL, CO2, SANJEEV, ALB, MG, PHOS, ALKP, AST) (12/28/2022 7:09 EST) Pathologist [facility] Sodium 134(L) 136 - 145 mmol/L 12/28/2022 21:43 [facility] Potassium 6.7(H) 3.5 - 5.0 mmol/L 12/28/2022 21:43 [facility] Chloride 100 96 - 110 mmol/L 12/28/2022 21:43 [facility] CO2 Total 23 22 - 32 mmol/L 12/28/2022 21:43 [facility] Calcium 9.1 8.5 - 10.5 mg/dL 12/28/2022 21:43 [facility] Albumin 3.5 3.4 - 4.9 g/dL 12/28/2022 21:43 [facility] Phosphorus 7.0(H) 2.5 - 4.5 mg/dL 12/28/2022 21:43 [facility] Calcium Phos Product 63.7 See Note mg/dL 12/28/2022 21:43 [facility] Comment: NOTE: Reference range not established BUN, Predialysis 76(H) 10 - 26 mg/dL 12/28/2022 21:43 [facility] AST 22 15 - 46 U/L 12/28/2022 21:43 [facility] Alkaline Phosphatase 84 38 - 126 U/L 12/28/2022 21:43 [facility] Magnesium 3.0(H) 1.7 - 2.8 mg/dL 12/28/2022 21:43 [facility] Anion Gap 11 5 - 14 12/28/2022 21:43 [facility] Calculated Calcium 9.5 8.9 - 10.5 mg/dL 12/28/2022 21:43 [facility] Blood VENOUS BLOOD / Unknown Venipuncture / Unknown 12/28/2022 7:09 EST 12/28/2022 7:09 EST us Carlota Jin MD CHEMISTRY & BLOOD GAS ORD ERABLES Final Result [facility] [address] [place] [address] documented in this encounter Visit Diagnoses Diagnosis ESRD (end stage renal disease) ([facility])- Primary End stage renal disease Hypoalbuminemia [...] intravenous, ONCE IN DIALYSIS, 1 dose, On 12/28/22 at 0715, Routine, DialysisIndications:Hypoalbumine bozena,Encounter for immunization,ESRD (end stage renal disease) ([facility]) Given 12/28/2022 8:03 EST 500 Units heparin injection 9,000 Units 9,000 Units, intravenous, ONCE IN DIALYSIS, 1 dose, On 12/28/22 at 0715, Routine, Dialysis, Now x1 bolus 4500 units to be given at the beginning of dialysis 1500 units/hour to be given over the course of dialysis (9000 units total). Stop 1 hour prior to end of treatment. To be administered per Policy [id number].Indications:Hypoalbumine bozena,Encounter for immunization,ESRD (end stage renal disease) ([facility]) Given 12/28/2022 7:06 EST 9,000 Units documented in this encounter Orders Medications Ordered That Davide ht Not Have Been Administered Count Last Ordered Date First Ordered Date protein bar 1 Bar 1 12/28/2022 Dialysis Count Last Ordered Date First Orde red Date HEMODIALYSIS 1 12/28/2022 documented in this encounter Care Teams Financial Sales Manager Relationship Specialty Start Date End Date Adeola Villegas APRN [address] [place] [address] PCP - General 10/12/16 07/06/23 documented as of this encounter
--- OUTSIDE RECORDS SUMMARY | 2024-12-05 12:30 | XMS_ITS | Encounter Summary ---
Author Organization [facility] Address [address] [place] [address] Care Team Providers Care Interior Design Professor Name Role Phone Adeola Villegas MONA Primary Care Provider [phone] Encounter Details Date Type Department Care Team (Late st Contact Info) Description 11/18/2022 Plan of Care Documentation [facility] [place] [address] [place], [place] [id number] Social History Tobacco Use Types Packs/Day Years [...] Care Note - Skye Gomez NP - 12/16/2022 1236 EST Dialysis Plan of Care Provider's Assessment Began Dialysis on: 02/14/2019 ESRD secondary to: diabetic nephropathy Care Conference Date: 12/14/22 Patient Status: ESRD Past Renal History/ Interval Dialysis History Gerson began in-center dialysis in January 2019 at an outside center ([facility]) and recently transferred to [facility]. His ESRD is secondary to diabetic nephropathy. No other modalities of renal replacement therapy have been tried, pt is not interested in home dialysis and isnot a candidate for transplant at this time, he continues to smoke. We continue to support and educate, he is stable on dialysis. Patient Active Problem List Diagnosis ??? Severe [...] uncontrolled(250.62) ??? Encounter for immunization ??? Hypoalbuminemia Physical Examination: NAD, trace LE edema, unlabored breathing. Dialysis Prescription: Hemodialysis Therapy Plan In-Center Hemodialysis [...] Dialysis - UF Profile: None Dialysis Location: [facility] Primary Rubber Covering Machine Operator: Carlota Jin MD Assessment and Plan Appropriate for Home Dialysis: Patient declined Appropriate for Kidney Transplantation: No smoker Resuscitation Status Reviewed: Yes I have reviewed this document and discussed it in detail with the Interdisciplinary Care Team. I agree with the content except where I have provided corrections or amendments. 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 He noted knee pain limits his activity but heis working on getting a house built . Currently lives on brothers property . With his . Tobias Jara have applied for several services including food stamps. Appetite: Good Appetite scale (0-10): 10 UBW/Weight History: Stable Gastrointestinal: Constipation Cooking/shopping: patient and spouse Food allergies/intolerances: No Pica: No Dentition/dental hygiene: Dentures Chewing/swallowing issues: No Previous Nutrition Education Yes Skin integrity: Intact Urine output: Yes 3-4 x day Diabetes: Yes on insulin Diabetes Management: Self Monitoring of Blood Glucose Diet Recall: B skips L skips at times as well D went [place] [facility] and had lobster tail with his Favorite Food: Seafood , pamela said he loves his veggies , shepherds pie and deli meat and eggs Fluid: Water Alcohol: HX ETOH abuse Added salt: will need to f/u Salt substitute usage: will need to f/u Protein/calorie supplements: Started protein bars at HD Renal/other vitamins: cholecalciferol (Vitamin D3) - MACHINE STRAP BUCKLER ordered 2000 IU daily MULTIVITAMIN ORAL Herbal/OTC supplements: None CKD/MBD medications: cholecalciferol (Vitamin D3) - 2000 IU daily sevelamer hydrochloride - 800 mg- 2 at every meal - recently ordered by MACHINE STRAP BUCKLER Other Medications Relevant to Nutrition: atorvastatin - 40 mg sevelamer hydrochloride - 800 mg LEVEMIR FLEXPEN SUBQ Nutrition Goal: Patient will have an Albumin greater than or equal to 4.0 and will be well nourished Prescribed Weight:88 Kg Post-Dialytic Weight:87.8 - 12/04/2022 12/07/2022 12/09/2022 12/11/2022 12/14/2022 ( Kg ) 88.4 88.3 88.1 87 87.8 Lab Results Component Value Date LABALBU 3.4 11/30/2022 BUNPRE 80 (H) 11/30/2022 URR: 72.5 (Calculated from:; BUN Pre-Dialysis: 80 mg/dL at 11/30/2022 11:59; BUN Post-Dialysis: 22 mg/dL at 11/30/2022 11:59) Kt/V: 1.56 (Calculated from:; BUN Pre-Dialysis: 80 mg/dL at 11/30/2022 11:59; BUN Post-Dialysis: 22 mg/dL at 11/30/2022 11:59; Pre-Treatment Weight (kg): 92.9 at 11/30/2022 7:02; Post-Treatment Weight (kg): 88.7 at 11/30/2022 11:14; Duration of Treatment (minutes): 243 minutes at 11/30/2022 11:14) PCR: 1.44 (Calculated from:; BUN Pre-Dialysis: 80 mg/dL at 11/30/2022 11:59; BUN Post-Dialysis: 22 mg/dL at 11/30/2022 11:59; Pre-Treatment Weight (kg): 92.9 at 11/30/2022 7:02; Post-Treatment Weight (kg):88.7 at 11/30/2022 11:14; Duration of Treatment (minutes): 243 minutes at 11/30/2022 11:14; Age: 56 years) Barriers to obtaining adequate nutrition: Financial Assessment: Xander is eating well - we discussed eating adequate protein and have started protein barsat HD to help improve his low albumin. Reported a stable wt with start of HD. Current BMI 28 Education: Verbal Plan: Encouraged low Na HBV Protein sources daily Continue protein bars at HD Fluid Removal & Volume Status Goal: UFR < 10 mL/Kg/hr UFR: - 12/04/2022 12/07/2022 12/09/2022 12/11/2022 12/14/2022 mL/Kg/hr 8.97 10.71 9.89 4.01 10.83 Assessment: Acceptable Education: Verbal Plan: Reinforced FR especially on long stretches. Encouraged to avoid salt Electrolytes Goal: Dialysis patients will have a Potassium level between 4.0 - 5.5 Lab Results Component Value Date K 5.8 (H) 11/30/2022 NA 135 (L) 11/30/2022 CO2 24 11/30/2022 Assessment: Potassium: High Education: Verbal Plan: Discussed high k foods to limit Mineral Bone Disease Goal: Dialysis patients will have: ??? Corrected and Non Corrected Calcium level between 8.5 - 10.2 ??? Phosphorus level between 3.5 - 5.5 ??? Magnesium level between 1.7 - 2.8 ??? Parathyroid Hormone level between 175 - 800 Lab Results Component Value Date CALCCA 9.0 11/30/2022 CALCIUM 8.5 11/30/2022 PHOS 7.7 (H) 11/30/2022 PLT 248 12/09/2022 PTH 341 (H) 11/30/2022 MG 2.5 11/30/2022 ALKPHOS 82 11/30/2022 Assessment: Calcium: Within normal limits Calcium (calc): Within normal limits Phosphorus: High Magnesium: Within normal limits iPTH: Within normal limits Education: Verbal Plan: Discussed high phos foods to limit MACHINE STRAP BUCKLER recently sent in script for juanis Encouaged to take tums with meals until he gets his script Vitamin Status Goal: Dialysis patients will have: ?? Vitamin D level : 30 - 50 ?? Vitamin B-12 level : 211 - 911 pg/mL ?? Folate level : >5.4 ng/mL Lab Results Component Value Date VITD 27 (L) 11/16/2022 [id number] 11/16/2022 FOLATE 17.3 11/16/2022 HGB 10.7 (L) 12/09/2022 MCV 97 (H) 12/09/2022 Assessment: 25 OH Vitamin D: Low Vitamin B12: Within normal limits Folate: Within normal limits Plan: Script sent in for D3 supplement and renal vitamin Diabetes No results found for: HGBA1C, FRUCTOSAMINE, FRUCTMFRUCT Comments: pt is on insulin - encouraged to check blld sugars Nutrition Prescription/ Recommendation Calories: BMR 1714 x 1.2= 2055 Protein: 100 g daily Sodium: <2400 mg Potassium: 3000 mg daily Phosphorous: 1300 mg Fluid: 1.5 L daily Education / Understanding Education/materials provided: Nutrition Lab Report Assessment of Understanding: needs reinforcement Additional comments: pt is INGE Eden RD, CD * Dialysis Plan of Care Note - Alexa Estrada LICSW - 12/16/2022 1236 EST Dialysis Plan of Care Initiation Note Patient Condition: Stable Date: 12/16/2022 POC Type: Initial POC Reason: Stable Initial set up by: NIKKIE Avery * Dialysis Plan of Care Note - Alexa Estrada LICSW - 12/16/2022 1236 EST Dialysis Plan of Care Wall Scraper's Assessment Patient initiated renal replacement therapy within the last 12 months: No Pt transferred from [facility] and has been on dialysis since 02/14/2019 Patient Participated in Assessment: Yes Grievance Procedure Reviewed with Patient: Yes Current Living Situation: Lives with family Pt lives with his , Hoda, in their apartment in [place]. He rents the apartment and has a [...] , Hoda live in their apartment in [place]. He has several brothers and one sister as well as extended family but does not like to bother them for support. He does have a son and a Daughter, both who live in [place]. His son requires his support in many ways after having survived childhood leukemia. He reports that his is his main support system, but he would consider his daughter, Lata Bruner, his secondary contact. 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 [facility] Patient has financial concerns: Yes: Pt reports he has unpaid medical bills from previous dialysis facility due to losing secondary insurance when his was moved to strategic partnership manager at her employer Communication: Physical or cognitive barriers to communication: No Factors affecting communication/understanding: None Primary Language: Libyan Patient is able to communicate in Libyan: Yes Patient requires interpretation services: No Patient is able to read printed material in Libyan: Yes Patient is able to read printed [...] dialysis treatment sessions: Yes Patient Concerns: Financial concerns, Insurance and Transportation Loss of income due to being cut to strategic partnership manager Loss of insurance secondary to losing job- SHANNON provided pt with Medicaid application and [facility] financial assistance application High heating bills and food costs- SHANNON [...] he has filled out Advance Directives, although [facility] does not have them on file. SHANNON provided pt with blank Advance Directives to fill out. Comment: SW met with pt today, he is very friendly and engaging. Pt has multiple concerns, mostly financial.His recently was cut to strategic partnership manager at her job, and so he lost his secondary insurance. He has received multiple medical bills from [employer] as a result. Due to this loss of income, they are finding it hard to make ends meet. SHANNON provided pt with applications for Medicaid, [employer] gas mileage reimbursement, [employer] [place], [facility] financial assistance and fuel assistance. SW offered to provide any assistance needed to fill these out, and also recommended that the pt go to the financial navigators at [facility] for assistance with the Medicaid application. Pt [...] applications and assist with obtaining documentation needed. SHANNON will remain available for support. * Dialysis Plan of Care Note - Marcela Cox RN - 12/16/2022 1236 EST Dialysis Plan of Care Nurse Assessment Primary Diagnosis: Type 2 diabetes mellitus with diabetic chronic kidney disease Patient knowledge related to kidney failure: Fair, Needs reinforcement Patient initiated renal replacement therapy within the last 12 months: No Modality Options Patient received information regarding modality options: Yes Patient understands modality/treatment options: Yes Patient is interested in pursuing home dialysis: No Patient is a home dialysis candidate: not interested at this time Patient treatment choice: Hemodialysis, Incenter Transplantation: Patient received information regarding transplantation: Yes Patient referred to transplant program: No Transplant workup in progress: not eligible at this time as pt is a current smoker On active transplant list: No No flowsheet data found. Home Medications: Medications reviewed with patient and list updated: Yes Identified issues with home medications: No Med Orders Placed This Visit and Additions to the Medication List Medications ??? heparin injection 9,000 Units ??? epoetin ken (EPOGEN) 20,000 unit/2 mL injection 500 Units Order Specific Question: Indication for erythropoetin stimulating agent (GEORGE): Answer: End Stage Renal Disease (ESRD) on dialysis ??? special k protein bar 1 Bar Current Outpatient Medications on File Prior to [...] Take 40 mg by mouth daily. ??? hydrOXYzine (ATARAX) 25 mg tablet Take 25 mg by mouth at bedtime. ??? insulin detemir (LEVEMIR FLEXPEN SUBQ) Inject into the skin. ??? MULTIVITAMIN ORAL Take by mouth. ??? nortriptyline (PAMELOR) 25 mg capsule Take 25 mg by mouth at bedtime. ??? pregabalin (LYRICA) 100 mg capsule Take 100 mg by mouth 2 times daily. ??? sevelamer hydrochloride (RENAGEL) 800 mg tablet Take 2 Tablets by mouth 3 times daily. 540 Tablet 3 No current facility-administered medications on file prior to visit. Review of Systems: GENERAL Fever: No Chills: No Weakness/Fatigue: No Recent Weight Loss/Gain: No Blurred Vision: No Decrease in Vision: No Corrective Lenses: No Loss of Hearing: Yes. Wears Hearing Aid? No reports he has hearing aids at home but does not wear them, has been encouraged to do so Normal Speech: Yes: WNL CARDIOVASCULAR: Heart Rate: Regular Chest Pain: No Palpitations: No Pacemaker Present: No Defibrillator Present: No RESPIRATORY: Lung Sounds: Clear Shortness of Breath: No Persistent Cough: No Hemoptysis: No Oxygen Use: No Tobacco (incl. Smokeless) Use: Current 1/2 PPD GI/: Nausea/Vomiting: No Diarrhea: No Constipation: No Incontinent: No Abdominal Distention: No Abdominal Pain: No Heart Burn/Reflux: No Appetite: Good Menstrual Period Present: N/A Enlarged Prostate: No Urine Output: Yes: pt reports good amounts of u/o daily Alcohol Use: No PHYSICAL ACTIVITY / AMBULATION STATUS Physical Limitations Present: No Ambulation Status Ambulates independently Activities of Daily Living: Independent/Able to perform all ADLs without limitation Recent Change in Activity Level: No Receives Assistance for ADLs, Physical and/or Social Activities: No Referral needed? No Fall Assessment: 1-Dialysis patient pushes up, successful in one attempt MENTAL/ NEUROLOGICAL: Alert and Oriented: Yes Memory Loss: No Confusion: No Depression: No Insomnia: No Frequent Headaches: No Numbness in Extremities: No Weakness in Extremities: No Tremor Present: No Substance use: Never PAIN ASSESSMENT Pain Scale: 0 If present, location / relieved by: No pain reported Lab Results Component Value Date HBSAG Negative 11/16/2022 HEPBHBQ 325.9 11/16/2022 HEPBSAB Positive 11/16/2022 HEPBCOREAB Negative 11/16/2022 XHCSCR2 Negative 11/16/2022 Immunization History Administered Date(s) Administered ??? Hepatitis B Vaccine Adult IM 08/09/2018 ??? Hepatitis B Vaccine Dialysis/Immunosup 4-dose IM [...] Free =>7yo IM 10/30/1996 ? ? Tdap (BOOSTRIX) Vaccine =>7YO IM 05/31/2016 Patient Received Hepatitis B Vaccine Series: Is Patient Hepatitis B Susceptible? No Patient Received Influenza Vaccine: Yes: see above Patient Received Pneumonia Vaccine: Yes: see above Patient Screened for TB: No Dialysis Adequacy: Lab Results Component Value Date PUR 72.5 11/30/2022 1.56 (Calculated from:; BUN Pre-Dialysis: 80 mg/dL at 11/30/2022 11:59; BUN Post- Dialysis: 22 mg/dL at 11/30/2022 11:59; Pre-Treatment Weight (kg): 92.9 at 11/30/2022 7:02; Post-Treatment Weight (kg): 88.7at 11/30/2022 11:14; Duration of Treatment (minutes): 243 minutes at 11/30/2022 11:14) Hemodialysis Therapy Plan In-Center Hemodialysis 3 times [...] not miss txs Fluid Management: Prescribed Weight: 88 - 12/02/2022 12/04/2022 12/07/2022 12/09/2022 12/11/2022 ( Kg ) 87.7 88.4 88.3 88.1 87 - 12/02/2022 12/04/2022 12/07/2022 12/09/2022 12/11/2022 mL/Kg/hr 7.63 8.97 10.71 9.89 4.01 InterDialytic +/- 12/09/2022 12/11/2022 12/11/2022 12/14/2022 12/14/2022 Gain/Loss - 0.3 - 4.7 4.7 Wt (pre) - 88.4 - 91.7 91.7 Wt (post) 88.1 - 87 - - Treatment UFR (ml:kg:hr) 9.89 - 4.01 - - BP (pre) - 134/68 - - 162/79 BP (post) - 137/82 - 171/98 171/98 Pulse (pre) - 79 - - 66 Pulse(post) - 75 - 64 64 Resp (/min) - 14 - 16 No flowsheet data found. Patient Achieves EDW (+1/-1kg) Majority of Treatments: Yes Blood Pressure: ... 12/09/2022 12/09/2022 12/11/2022 12/14/2022 12/14/2022 Pre-BP (sitting) 165/87 - 137/82 171/98 171/98 Post-BP (sitting) - 156/76 156/84 - - Intra-dialytic Hypotension (> 3 treatments/month): No Intra-dialytic Hypertension (> 3 treatments/month): No Intra-dialytic Cramping (> 3 treatments/month): Yes: reports cramping at end of tx occ Anemia Management: Lab Results Component Value Date WBC 7.81 12/09/2022 RBC 3.33 (L) 12/09/2022 HGB 10.7 (L) 12/09/2022 HCT 32.2 (L) 12/09/2022 MCV 97 (H) 12/09/2022 MCH 32.1 12/09/2022 MCHC 33.2 12/09/2022 PLT 248 12/09/2022 MPV 11.5 12/09/2022 RDWCV 13.2 12/09/2022 Lab Results Component Value Date IRON 80 11/30/2022 TIBC 210 (L) 11/30/2022 FERRITIN 708 (H) 11/30/2022 Current GEORGE dose: HEMODIALYSIS ANEMIA MEDS epoetin ken (EPOGEN) 20,000 unit/2 mL injection 500 Units 500 Units, intravenous, 3 times a week, ONCE IN DIALYSIS GEORGE Dose Adjustment: No [...] Description 12/06/2024 6:45 EST [facility] [address] [place], [place] [address] Carlota Jin MD [address] [place] [phone] 12/08/2024 6:45 EST [facility] [address] [place] [id number] Carlota Jin MD [address] [place] [address] [address] [place] [phone] 12/11/2024 6:45 EST Treatment [facility] [place] [address] [place], [place] [id number] Carlota Jin MD 1 [facility], [facility] [address] [place] [phone] 12/13/2024 6:45 EST Treatment [facility] [place] [address] [place], [place] [id number] Carlota Jin MD 1 [facility], [facility] [address] [place] [phone] 12/15/2024 6:45 EST Treatment [facility] [place] [address] [place], [place] [address] [phone] Carlota Jin MD 1 [facility], [facility] [address] [place] [phone] 12/18/2024 6:45 EST Treatment [facility] [place] [address] [place] [address] Carlota Jin MD 1 [facility], [facility] [address] [place] [phone] 12/20/2024 6:45 EST Treatment [facility] [place] [address] [place], [place] [id number] Carlota Jin MD 1 [facility], [address] [place] [phone] 12/22/2024 6:45 EST Treatment [facility] [place] [address] [place], [place] [address] Carlota Jin MD 1 [facility], [address] [phone] 12/25/2024 6:45 EST Treatment [facility] [place] [address] [place] [address] Carlota Jin MD 1 [facility], [address] [phone] 12/27/2024 6:45 EST Treatment [facility] [place] [address] [place], [place] [id number] Carlota Jin MD 1 [facility], [address] [phone] 12/29/2024 6:45 EST Treatment [facility] [address] [place] [address] Carlota Jin MD 1 [facility], [address] [phone] 01/01/2025 6:45 EDT Treatment [facility] [address] [place], [place] [id number] Carlota Jin MD [address] [phone] 01/03/2025 6:45 EDT Treatment [facility] [place] [address] [place], [place] [id number] Carlota Jin MD 1 [facility], [address] [phone] 01/05/2025 6:45 EDT Treatment [facility] [place] [address] [place], [place] [id number] Carlota Jin MD 1 [facility], [facility] [address] [place] [phone] 01/08/2025 6:45 EDT Treatment [facility] [place] [address] [place], [place] [id number] Carlota Jin MD 1 [facility], [address] [phone] 01/10/2025 6:45 EDT Treatment [facility] [place] [address] [place], [place] [id number] Carlota Jin MD 1 [facility], [facility] [address] [place] [phone] 01/12/2025 6:45 EDT Treatment [facility] [place] [address] [place], [place] [id number] Carlota Jin MD 1 [facility], [facility] [address] [place] [phone] 01/15/2025 6:45 EDT Treatment [facility] [place] [address] [place], [place] [id number] Carlota Jin MD 1 [facility], [facility] [address] [place] [phone] 01/17/2025 6:45 EDT Treatment [facility] [place] [address] [place], [place] [id number] Carlota Jin MD 1 [facility], [facility] [address] [place] [phone] 01/19/2025 6:45 EDT Treatment [facility] [place] [address] [place], [place] [id number] Carlota Jin MD 1 [facility], [address] [phone] 01/22/2025 6:45 EDT Treatment [facility] [place] [address] [place], [place] [id number] Carlota Jin MD 1 [facility], [address] [phone] 01/24/2025 6:45 EDT Treatment [facility] [place] [address] [place], [place] [id number] Carlota Jin MD 1 [facility], [address] [phone] 01/26/2025 6:45 EDT Treatment [facility] [place] [address] [place], [place] [address] Carlota Jin MD 1 [facility], [facility] [address] [place] [phone] 01/29/2025 6:45 EDT Treatment [facility] [place] [address] [place], [place] [id number] Carlota Jin MD 1 [facility], [facility] 2 [place] [phone] 01/31/2025 6:45 EDT Treatment [facility] [place] [address] [place], [place] [address] Carlota Jin MD 1 [facility], [facility] 2 [place] [phone] 02/02/2025 6:45 EDT Treatment [facility] [place] [address] [place], [place] [id number] Carlota Jin MD 1 [facility], [facility] [address] [place] [phone] 02/05/2025 6:45 EDT Treatment [facility] [place] [address] [place], [place] [address] Carlota Jin MD 1 [facility], [facility] [address] [place] [phone] 02/07/2025 6:45 EDT Treatment [facility] [place] [address] [place] [address] Carlota Jin MD 1 [facility], [facility] 2 [place] [phone] 02/09/2025 6:45 EDT Treatment [facility] [place] [address] [place], [place] [address] Carlota Jin MD 1 [facility], [facility] 2 [place] [phone] 02/12/2025 6:45 EDT Treatment [facility] [place] [address] [place], [place] [id number] Carlota Jin MD 1 [facility], [address] [phone] 02/14/2025 6:45 EDT Treatment [facility] [place] [address] [place], [place] [id number] Carlota Jin MD [address] [place] [phone] 02/16/2025 6:45 EDT Treatment [facility] [place] [address] [place], [place] [id number] Carlota Jin MD [address] [place] [address], [address] [phone] 02/19/2025 6:45 EDT Treatment [facility] [place] [address] [place], [place] [id number] Carlota Jin MD [address] [place] [phone] 02/21/2025 6:45 EDT Treatment [facility] [place] [address] [place], [place] [id number] Calrota Jin MD [address] [phone] documented as of this encounter Visit Diagnoses * Dialysis POC IDT Note - Alexa Estrada, E.J. [facility] - 12/16/2022 1236 EST Dialysis Interdisciplinary Team Final PLAN OF CARE Note Meeting Date: 12/16/2022 Patient/Family Invited to POC Meeting: Yes Patient Present: No: declined Based upon the findings of these assessments, the patient is considered to be: Stable Monthly Lab Results: Lab Results Component Value Date LABALBU 3.6 11/16/2022 CALCIUM 8.7 11/16/2022 CALCCA 9.0 11/16/2022 PHOS 6.5 (H) 11/16/2022 PTH 266 (H) 11/16/2022 MG 2.8 11/16/2022 K 5.4 (H) 11/16/2022 HGB 10.8 (L) 11/18/2022 LABIRON 29 11/16/2022 FERRITIN 773 (H) 11/16/2022 WBC 6.57 11/18/2022 Immunization History Administered Date(s) Administered ??? Hepatitis B Vaccine Adult IM 08/09/2018 ??? Hepatitis B Vaccine Dialysis/Immunosup 4-dose IM 12/08/2021, 01/05/2022, 02/02/2022, 04/06/2022 ??? Influenza (whole) 08/01/2021, 07/28/2022 ??? Pneumococcal Conjugate Vaccine 13-Valent (PCV13) (PREVNAR-13) 0.5 mL IM (6 wks+) 08/02/2019 ? ? Pneumococcal Polysaccharide (PPSV23) Vaccine (PNEUMOVAX-23) =>2YO SQ/IM 04/15/2001, 09/07/2011 ? ? Td (Adult) 5 Lf Vaccine (TENIVAC) Preservative Free =>7yo IM 10/30/1996 ? ? Tdap (BOOSTRIX) Vaccine =>7YO IM 05/31/2016 Current Outpatient Medications Medication ??? albuterol (ACCUNEB) 0.63 mg/3 mL nebulizer solution ??? amLODIPine (NORVASC) 10 mg tablet ??? atorvastatin (LIPITOR) 40 mg tablet ??? BABY ASPIRIN ORAL ??? calcium carbonate (TUMS) 200 mg calcium (500 mg) tablet,chewable ??? carvediloL (COREG) 12.5 mg tablet ??? famotidine (PEPCID) 40 mg tablet ??? hydrOXYzine (ATARAX) 25 mg tablet ??? insulin detemir (LEVEMIR FLEXPEN SUBQ) ??? MULTIVITAMIN ORAL ??? nortriptyline (PAMELOR) 25 mg capsule ??? pregabalin (LYRICA) 100 mg capsule ??? sevelamer hydrochloride (RENAGEL) 800 mg tablet No current facility-administered medications for this visit. Transplant Info: No flowsheet data found. Dialysis Adequacy: Goal: Hemodialysis patients will have a Kt/V goal of > 1.2 Kt/V: 1.46 (Calculated from:; BUN Pre-Dialysis: 63 mg/dL at 11/16/2022 11:33; BUN Post-Dialysis: 18 mg/dL at 11/16/2022 11:33; Pre-Treatment Weight (kg): 92.1 at 11/16/2022 7:08; Post-Treatment Weight (kg): 89.7 at 11/16/2022 11:30; Duration of Treatment (minutes): 247 minutes at 11/16/2022 11:30) Plan/Time Line: at goal Volume Status Goal: Patient will remain free from intradialytic symptoms and maintain appropriate EDW Pre and post BP (sitting) ... 11/20/2022 11/23/2022 11/23/2022 11/23/2022 11/25/2022 11/25/2022 11/25/2022 Pre-BP (sitting) - 156/81 156/81 - 210/111 210/111 - Post-BP (sitting) 133/82 - - 139/70 - - 156/81 Interdialytic Change 11/18/2022 11/20/2022 11/20/2022 11/23/2022 11/23/2022 11/25/2022 11/25/2022 Interdialytic fluid gain/loss (kg) 0.054 kg 0.071 kg 0.071 kg 0.105 kg 0.105 kg 0.045 kg 0.045 kg Plan/Timeline: at goal, continue to support and educate Anemia Management Goal: Patient will maintain a Hgb > 9.0mg/dL - < 11.0mg/dL. Lab Results Component Value Date HGB 10.8 (L) 11/18/2022 FERRITIN 773 (H) 11/16/2022 PLT 233 11/18/2022 [id number] 688 11/16/2022 FOLATE 17.3 11/16/2022 None This patient does not have an active medication from one of the medication groupers. This patient does not have an active medication from one of the medication groupers. Plan/Time Line: continue per protocol Access Management Goal: Patient has the most appropriate and optimal vascular access. Hemodialysis Arteriovenous Access 02/13/19 (Active) 02/13/19 Earliest Known Present: Hand Hygiene Completed: Orientation: Anterior;Left Access Type: Arteriovenous fistula Access Location: Upper arm Site Prep: Patient Tolerance: Usable Date: Earliest Known Removed: Plan/Time Line: at goal, continue with access Mineral and Renal Bone Disease Management Goal: [...] pg/mL. Lab Results Component Value Date PHOS 6.5 (H) 11/16/2022 CALCIUM 8.7 11/16/2022 CALCCA 9.0 11/16/2022 PTH 266 (H) 11/16/2022 ALKPHOS 90 11/16/2022 Plan/Time Line: Start renvela with meals - script sent in Reviewed high phos foods to [place] Potassium Management Goal: Patient will have a potassium < 6.0 meq/dL. Lab Results Component Value Date K 5.4 (H) 11/16/2022 Last Dialysis Prescription released on: 11/25/2022 Selected bath: Potassium 2 mEq/L Calcium 2.5 mEq/L Some recent data might be hidden Plan/Time Line: Revd high k foods to limit monthly Nutrition Management Goal: Patient will have an albumin level >= 4.0 mg/dL. Lab Results Component Value Date LABALBU 3.6 11/16/2022 Plan/Time Line: Encouraged well balanced meals with adequate protein Start protein bars at HD Treatment Modality/Transplantation Goal: Patient will be informed of treatment modality choices and receive preferred treatment if deemed a candidate. Plan/Time Line: ongoing Treatment Attendance Goal: Patient will be present at prescribed, scheduled treatments. Plan/Time Line: ongoing documented in this encounter Care Teams Interior Design Professor Relationship Specialty Start Date End Date Adeola Villegas APRN [id number] [place] [address] PCP - General 10/12/16 07/06/23 documented as of this encounter
--- OUTSIDE RECORDS SUMMARY | 2024-12-05 12:30 | XMS_ITS | Encounter Summary ---
Author Organization [facility] Address [address] [place] [address] Care Team Providers Care Guide Travel Name Role Phone Adeola Villegas APRN Primary Care Provider [phone] Encounter Details Date Type Department Care Team (Late st Contact Info) Description 12/16/2022 7:15 EST Treatment [facility] [address] [place], [place] [phone] Carlota Jin MD 1 [facility], [address] [place] [address] Hypoalbuminemia (Primary Dx); Encounter for immunization; ESRD (end stage renal disease) ([facility]) Social History Tobacco Use Types [...] - Temperature - - Respiratory Rate 17 12/16/2022 1119 EST Oxygen Saturation - - Inhaled Oxygen Concentration - - Weight 90.3 kg (199 lb 1.2 oz) 12/16/[address] Height - - Body Mass Index - - documented in this encounter Miscellaneous Notes * Flowsheet Note - Melissa Crespo RN - 12/16/2022 1355 EST 12/16/22 1119 Post-Hemodialysis Assessment Total Blood Processed (L) 89.69 Liters Dialyzer Clearance Lightly streaked Treatment UFR (ml:kg:hr) 8.45 ml:kg:hr Critline refill Not done Fluid Removed (L) 3 L Post-Dialysis Scale Weight 87.3 kg (192 lb 7.4 oz) Wheelchair Weight 0 kg (0 lb) Prosthesis Weight 0 kg (0 lb) Post-Treatment Weight (kg) 87.3 Treatment Weight Change (kg) 3 kg Day Target Weight (kg) 87.8 Post Sitting/Lying BP 177/90 Post Sitting/Lying pulse 69 Post Standing BP 127/75 Post Standing Pulse 72 Temp 36.3 ??C (97.3 ??F) Temp src Temporal Resp 17 Post access assessment Bruit present: Yes Thrill Present AVF/AFG Hemostasis achieved Yes Note Patient holds for 10mins Orientation Alert and Oriented x3 Yes Cooperative Yes Disoriented No Discharge Ambulation Methods Ambulatory without assistance Wrap up items Patient Response to Treatment Tolerated tx. Removed 3000 UF goal without difficulty. Stable upon DCfrom unit. Comments No issues during tx, No concerns voiced post tx. * Dialysis Rounding - Skye Gomez NP - 12/16/2022 4196 EST Dialysis Provider's Routine Assessment Gerson Bruner was seen and examined as appropriate during Dialysis. Pertinent lab results were reviewed. Changes since last visit: None Changes to current prescriptions/orders: None Reports feeling well, has not picked up his sevelamer from the pharmacy. Pt is very hard of hearing and is not wearing hi shearing aids. Skye Gomez NP documented in this encounter Plan of Treatment Upcoming Encounters Date Type Department Care Team (Late st Contact Info) Description 12/06/2024 6:45 EST Treatment [facility] [place] [address] [place] [address] Carl[facility] MD 1 [facility], [facility] [address] [place] [phone] 12/08/2024 6:45 EST Treatment [facility] [place] [address] [place], [place] [phone] Carlota Jin MD 1 [facility], [facility] [address] [place] [phone] 12/11/2024 6:45 EST Treatment [facility] [place] [address] [place] [address] Carlota Jin MD 1 [facility], [address] [phone] 12/13/2024 6:45 EST Treatment [facility] [place] [address] [place], [place] [phone] Carlota Jin MD 1 [facility], [address] [phone] 12/15/2024 6:45 EST Treatment [facility] [place] [address] [place] [address] Carlota Jin MD 1 [facility], [facility] [address] [place] [phone] 12/18/2024 6:45 EST Treatment [facility] [place] [address] [place], [place] [phone] Carlota Jin MD 1 [facility], [facility] [address] [place] [phone] 12/20/2024 6:45 EST Treatment [facility] - [place] [address] [place], [place] [phone] Carlota Jin MD 1 [facility], [facility] [address] [place] [phone] 12/22/2024 6:45 EST Treatment [facility] [place] [address] [place], [place] [phone] Carlota Jin MD 1 [facility], [facility] [address] [place] [phone] 12/25/2024 6:45 EST Treatment [facility] [address] [place], [place] [phone] Carlota Jin MD 1 [facility], [facility] [address] [place] [phone] 12/27/2024 6:45 EST Treatment [facility] [address] [place], [place] [phone] Carlota Jin MD 1 [facility], [facility] [address] [place] [phone] 12/29/2024 6:45 EST Treatment [facility] [address] [place], [place] [phone] Carlota Jin MD 1 [facility], [facility] [address] [place] [phone] 01/01/2025 6:45 EDT Treatment [facility] [address] [place], [place] [phone] Carlota Jin MD 1 [facility], [facility] 2 [place] [phone] 01/03/2025 6:45 EDT Treatment [facility] [place] [address] [place] [address] Carlota Jin MD 1 [facility], [facility] 2 [place] [phone] 01/05/2025 6:45 EDT Treatment [facility] - [place] [address] [place] [address] Carlota Jin MD 1 [facility], [facility] 2 [place] [phone] 01/08/2025 6:45 EDT Treatment [facility] - [place] [address] [place], [place] [phone] Carlota Jin MD 1 [facility], [facility] 2 [place] [phone] 01/10/2025 6:45 EDT Treatment [facility] [place] [address] [place] [address] Carlota Jin MD 1 [facility], [facility] [address] [place] [phone] 01/12/2025 6:45 EDT Treatment [facility] - [place] [address] [place], [place] [phone] Carlota Jin MD 1 [facility], [facility] 2 [place] [phone] 01/15/2025 6:45 EDT Treatment [facility] - [place] [address] [place], [place] [phone] Carlota Jin MD 1 [facility], [facility] 2 [place] [phone] 01/17/2025 6:45 EDT Treatment [facility] [place] [address] [place], [place] [phone] Carlota Jin MD 1 [facility], [facility] 2 [place] [phone] 01/19/2025 6:45 EDT Treatment [facility] [address] [place], [place] [phone] Carlota Jin MD 1 [facility], [facility] 2 [place] [phone] 01/22/2025 6:45 EDT Treatment [facility] [address] [place], [place] [address] Carlota Jin MD 1 [facility], [facility] 2 [place] [phone] 01/24/2025 6:45 EDT Treatment [facility] [address] [place], [place] [phone] Carlota Jin MD 1 [facility], [facility] 2 [place] [phone] 01/26/2025 6:45 EDT Treatment [facility] [place] [address] [place], [place] [address] Carlota Jin MD 1 [facility], [facility] 2 [place] [phone] 01/29/2025 6:45 EDT Treatment [facility] [place] [address] [place], [place] [phone] Carlota Jin MD 1 [facility], [address] [phone] 01/31/2025 6:45 EDT Treatment [facility] - [place] [address] [place], [place] [phone] Carlota Jin MD 1 [facility], [address] [phone] 02/02/2025 6:45 EDT Treatment [facility] [place] [address] [place], [place] [phone] Carlota Jin MD [address] [phone] 02/05/2025 6:45 EDT Treatment [facility] [place] [address] [place], [place] [phone] Carlota Jin MD [address] [phone] 02/07/2025 6:45 EDT Treatment [facility] [place] [address] [place], [place] [phone] Carlota Jin MD 1 [facility], [facility] 2 [place] [phone] 02/09/2025 6:45 EDT Treatment [facility] [place] [address] [place], [place] [phone] Carlota Jin MD 1 [facility], [facility] 2 [place] [phone] 02/12/2025 6:45 EDT Treatment [facility] [place] [address] [place], [place] [phone] Carlota Jin MD 1 [facility], [facility] 2 [place] [phone] 02/14/2025 6:45 EDT Treatment [facility] [place] [address] [place], [place] [phone] Carlota Jin MD 1 [facility], [facility] 2 [place] [phone] 02/16/2025 6:45 EDT Treatment [facility] [place] [address] [place] [address] Carlota Jin MD 1 [facility], [facility] 2 [place] [phone] 02/19/2025 6:45 EDT Treatment [facility] [place] [address] [place], [place] [phone] Carlota Jin MD 1 [facility], [facility] 2 [place] [phone] 02/21/2025 6:45 EDT Treatment [facility] [place] [address] [place], [place] [phone] Carlota Jin MD 1 [facility], [address] [place] [phone] documented as of this encounter Procedures Procedure Name Priority Date/Time Associated Diagnosis Comments COMPLETE BLOOD COUNT Routine 12/16/2022 7:15 EST Hypoalbuminemia Encounter for immunization ESRD (end stage renal disease) ([facility]) HEMODIALYSIS Routine 12/16/2022 7:03 EST Hypoalbuminemia Encounter for immunization ESRD (end stage renal disease) ([facility]) documented in this encounter Results * (ABNORMAL) COMPLETE BLOOD COUNT (12/16/2022 7:15 EST) WBC 6.49 4.00 - 10.40 K/cmm 12/16/2022 21:56 [facility] RBC 3.33(L) 4.36 - 5.78 M/cmm 12/16/2022 21:56 [facility] Hemoglobin 10.6(L) 13.8 - 17.3 gm/dL 12/16/2022 21:56 [facility] HCT 33.2(L) 39.5 - 50.2 % 12/16/2022 21:56 [facility] MCV 100(H) 81 - 95 fl 12/16/2022 21:56 [facility] MCH 31.8 27.6 - 33.0 pg 12/16/2022 21:56 [facility] MCHC 31.9(L) 32.8 - 36.4 gm/dL 12/16/2022 21:56 [facility] RDW-CV 13.2 <14.2 % 12/16/2022 21:56 [facility] RDW-SD 48.1(H) <46.0 fl 12/16/2022 21:56 [facility] PLT 236 141 - 377 K/cmm 12/16/2022 21:56 EST [facility] MPV 11.4 9.5 - 12.7 fl 12/16/2022 21:56 EST [facility] Blood VENOUS BLOOD / Unknown Venipuncture / Unknown 12/16/2022 7:15 EST 12/16/2022 7:15 EST us Carlota Jin MD HEMATOLOGY & PF4 ORDERABL ES Final Result [facility] [address] [place] [address] documented in this encounter Visit Diagnoses Diagnosis Hypoalbuminemia- Primary Other disorders of plasma protein metabolism Encounter for immunization Need for other specified prophylactic vaccination against single bacterial disease ESRD (end stage renal disease) ([facility]) End stage renal disease documented in this encounter Administered Medications Inactive Administered Medications - up to 3 most recent administrations Medication Order MAR Action Action Date Dose Rate Site epoetin ken (EPOGEN) 20,000 unit/2 mL injection 500 Units 500 Units, intravenous, ONCE IN DIALYSIS, 1 dose, On Wed12/16/22 at 0730, Routine, DialysisIndications:Hypoalbumine bozena,Encounter for immunization,ESRD (end stage renal disease) ([facility]) Given 12/16/2022 7:57 EST 500 Units heparin injection 9,000 Units 9,000 Units, intravenous, ONCE IN DIALYSIS, 1 dose, On Wed12/16/22 at 0730, Routine, Dialysis, Now x1 bolus 4500 units to be given at the beginning of dialysis 1500 units/hour to be given over the course of dialysis (9000 units total). Stop 1 hour prior to end of treatment. To be administered per Policy [id number].Indications:Hypoalbumine bozena,Encounter for immunization,ESRD (end stage renal disease) ([facility]) Given 12/16/2022 7:15 EST 9,000 Units special k protein bar 1 Bar 1 Bar, oral, ONCE IN DIALYSIS, 1 dose, On Wed12/16/22 at 0730, RoutineIndications:Hypoalbuminem ia,ESRD (end stage renal disease) ([facility]) Given 12/16/2022 7:57 EST 1 Bar documented in this encounter Orders Dialysis Count Last Ordered Date First Orde red Date HEMODIALYSIS 1 12/16/2022 documented in this encounter Care Teams Guide Travel Relationship Specialty Start Date End Date Adeola Villegas APRN [address] [place] [address] PCP - General 10/12/16 07/06/23 documented as of this encounter
--- OUTSIDE RECORDS SUMMARY | 2024-12-05 12:30 | XMS_ITS | Encounter Summary ---
Author Organization [facility] Address [address] [place] [address] Care Team Providers Care Logistics Team Leader Name Role Phone Adeola Villegas APRN Primary Care Provider [phone] Encounter Details Date Type Department Care Team (Late st Contact Info) Description 12/16/2022 Documentation Visit [facility] [address] [place], [place] [id number] Marcela Cox, VIDYA Social History Tobacco Use [...] 12/06/2024 6:[address] [facility] [address] [place] [id number] Carlota Jin MD 1 [facility], [facility] [address] [place] [phone] 12/08/2024 6:[address] [facility] [address] [place] [id number] Carlota Jin MD [address] [place] [address], [facility] [address] [place] [phone] 12/11/2024 6:[address] [facility] [place] [address] [place], [place] [id number] Carlota Jin MD 1 [facility] [address] [place] [phone] 12/13/2024 6:[address] [facility] [place] [address] [place] [address] Carlota Jin MD 1 [facility], [facility] [address] [place] [phone] 12/15/2024 6:[address] [facility] [place] [address] [place], [place] [address] [phone] Carlota Jin MD 1 [facility], [facility] [address] [place] [phone] 12/18/2024 6:[address] [facility] [place] [address] [place] [address] Carlota Jin MD 1 [facility], [facility] 2 [place] [phone] 12/20/2024 6:[address] [facility] [place] [address] [place], [place] [id number] Carlota Jin MD 1 [facility], [facility] [address] [place] [phone] 12/22/2024 6:[address] [facility] [place] [address] [place] [address] Carlota Jin MD 1 [facility], [facility] 2 [place] [phone] 12/25/2024 6:[address] [facility] [place] [address] [place], [place] [address] [phone] Carlota Jin MD 1 [facility], [address] [phone] 12/27/2024 6:[address] [facility] [place] [address] [place], [place] [id number] Carlota Jin MD 1 [facility], [address] [phone] 12/29/2024 6:[address] [facility] [place] [address] [place], [place] [phone] Carlota Jin MD 1 [facility], [address] [phone] 01/01/2025 6:[address] [facility] [place] [address] [place], [place] [id number] Carlota Jin MD 1 [facility], [address] [phone] 01/03/2025 6:[address] [facility] [place] [address] [place], [place] [id number] Carlota Jin MD 1 [facility], [facility] 2 [place] [phone] 01/05/2025 6:[address] [facility] [place] [address] [place], [place] [id number] Carlota Jin MD 1 [facility], [facility] 2 [place] [phone] 01/08/2025 6:[address] [facility] [place] [address] [place], [place] [id number] Carlota Jin MD 1 [facility], [facility] 2 [place] [phone] 01/10/2025 6:[address] [facility] [place] [address] [place] [address] Carlota Jin MD [address] [place] [address], [facility] 2 [place] [phone] 01/12/2025 6:[address] [facility] [place] [address] [place], [place] [id number] Carlota Jin MD 1 [facility], [facility] 2 [place] [phone] 01/15/2025 6:[address] [facility] [place] [address] [place], [place] [id number] Carlota Jin MD [address] [place] [address], [facility] 2 [place] [phone] 01/17/2025 6:[address] [facility] [place] [address] [place], [place] [address] Carlota Jin MD 1 [facility], [facility] 2 [place] [phone] 01/19/2025 6:[address] [facility] [place] [address] [place], [place] [id number] Carlota Jin MD 1 [facility], [facility] 2 [place] [phone] 01/22/2025 6:[address] [facility] [place] [address] [place], [place] [id number] Carlota Jin MD 1 [facility], [facility] 2 [place] [phone] 01/24/2025 6:[address] [facility] [place] [address] [place], [place] [id number] Carlota Jin MD 1 [facility], [address] [phone] 01/26/2025 6:[address] [facility] [place] [address] [place], [place] [id number] Carlota Jin MD 1 [facility], [facility] 2 [place] [phone] 01/29/2025 6:[address] [facility] [place] [address] [place], [place] [id number] Carlota Jin MD 1 [facility] 2 [place] [phone] 01/31/2025 6:[address] [facility] [place] [address] [place], [place] [address] Carlota Jin MD 1 [facility], [facility] 2 [place] [phone] 02/02/2025 6:[address] [facility] [place] [address] [place], [place] [id number] Carlota Jin MD 1 [facility], [facility] 2 [place] [phone] 02/05/2025 6:[address] [facility] [place] [address] [place], [place] [id number] Carlota Jin MD 1 [facility], [facility] 2 [place] [phone] 02/07/2025 6:[address] [facility] [place] [address] [place] [address] Carlota Jin MD 1 [facility], [facility] 2 [place] [phone] 02/09/2025 6:[address] [facility] [address] [place], [place] [id number] Carlota Jin MD 1 [facility], [facility] 2 [place] [phone] 02/12/2025 6:[address] [facility] [place] [address] [place], [place] [id number] Carlota Jin MD [address] [phone] 02/14/2025 6:[address] [facility] [place] [address] [place], [place] [id number] Carlota Jin MD [address] [place] [phone] 02/16/2025 6:[address] [facility] [place] [address] [place], [place] [id number] Carlota Jin MD [address] [place] [phone] 02/19/2025 6:[address] [facility] [place] [address] [place], [place] [id number] Carlota Jin MD [address] [place] [phone] 02/21/2025 6:[address] [facility] [place] [address] [place], [place] [phone] Carlota Jin MD [address] [place] [phone] documented as of this encounter Visit Diagnoses Not on filedocumented in this encounter Care Teams Logistics Team Leader Relationship Specialty Start Date End Date Adeola Villegas APRN [address] [place] [address] PCP - General 10/12/16 07/06/23 documented as of this encounter
--- OUTSIDE RECORDS SUMMARY | 2024-12-05 12:30 | XMS_ITS | Encounter Summary ---
Author Organization [facility] Address [address] [place] [address] Care Team Providers Care Painter Shipyard Name Role Phone Adeola Villegas MONA Primary Care Provider [phone] Encounter Details Date Type Department Care Team (Late st Contact Info) Description 12/14/2022 Documentation Visit [facility] [address] [place], [place] [address] Melissa Crespo, RN Social History Tobacco Use Types Packs/Day Years Used Date Smoking Tobacco: Every Day Cigarettes Smokeless Tobacco: Never Sex and Gender Information Value Date Recorded Sex Assigned at Not on file Legal Sex Male 18:49 EST Gender Identity Male 07/07/2023 14:11 EDT Sexual Orientation Not on file documented as of this encounter Progress Notes * Melissa Crespo, RN - 12/14/2022 0947 EST 12/14/22 9:48 [facility]ONC[facility] Medication review of home medications (prescriptions, repn-opx-ulopawj, herbals, vitamin/mineral/dietary (nutritional) supplements, medical marijuana, and [...] current facility-administered medications for this visit. Melissa Crsepo RN documented in this encounter Plan of Treatment Upcoming Encounters Date Type Department Care Team (Late st Contact Info) Description 12/06/2024 6:45 EST Treatment [facility] [address] [place], [place] [phone] Carlota Jin MD [address] [place] [address], [facility] 2 [place] [phone] 12/08/2024 6:45 EST Treatment [facility] [address] [place], [place] [id number] Carlota Jin MD [address] [place] [address] 2 [place] [phone] 12/11/2024 6:45 EST Treatment [facility] [address] [place], [place] [id number] Carlota Jin MD [address] [place] [address] 2 [place] [phone] 12/13/2024 6:45 EST Treatment [facility] [address] [place], [place] [id number] Carlota iJn MD 1 [facility], [facility] 2 [place] [phone] 12/15/2024 6:45 EST Treatment [facility] [place] [address] [place], [place] [id number] Carlota Jin MD 1 [facility], [facility] 2 [place] [phone] 12/18/2024 6:45 EST Treatment [facility] [place] [address] [place], [place] [phone] Carlota Jin MD 1 [facility], [facility] 2 [place] [phone] 12/20/2024 6:45 EST Treatment [facility] [place] [address] [place] [address] Carlota Jin MD 1 [facility], [facility] 2 [place] [phone] 12/22/2024 6:45 EST Treatment [facility] [place] [address] [place], [place] [id number] Carlota Jin MD 1 [facility], [facility] 2 [place] [phone] 12/25/2024 6:45 EST Treatment [facility] [place] [address] [place], [place] [id number] Carlota Jin MD 1 [facility], [facility] 2 [place] [phone] 12/27/2024 6:45 EST Treatment [facility] [place] [address] [place], [place] [id number] Carlota Jin MD 1 [facility], [facility] 2 [place] [phone] 12/29/2024 6:45 EST Treatment [facility] [place] [address] [place], [place] [id number] Carlota Jin MD 1 [facility], [facility] 2 [place] [phone] 01/01/2025 6:45 EDT Treatment [facility] [address] [place] [address] Carlota Jin MD 1 [facility], [facility] 2 [place] [phone] 01/03/2025 6:45 EDT Treatment [facility] [address] [place], [place] [id number] Carlota Jin MD 1 [facility], [facility] 2 [place] [phone] 01/05/2025 6:45 EDT Treatment [facility] [place] [address] [place], [place] [id number] Carlota Jin MD 1 [facility], [facility] 2 [place] [phone] 01/08/2025 6:45 EDT Treatment [facility] [address] [place], [place] [id number] Carlota Jin MD 1 [facility], [facility] 2 [place] [phone] 01/10/2025 6:45 EDT Treatment [facility] [place] [address] [place], [place] [id number] Carlota Jin MD 1 [facility], [facility] 2 [place] [phone] 01/12/2025 6:45 EDT Treatment [facility] [place] [address] [place], [place] [id number] Carlota Jin MD 1 [facility], [address] [phone] 01/15/2025 6:45 EDT Treatment [facility] [place] [address] [place], [place] [id number] Carlota Jin MD 1 [facility], [address] [phone] 01/17/2025 6:45 EDT Treatment [facility] [place] [address] [place], [place] [id number] Carlota Jin MD 1 [facility], [facility] 2 [place] [phone] 01/19/2025 6:45 EDT Treatment [facility] [place] [address] [place], [place] [id number] Carlota Jin MD 1 [facility], [facility] 2 [place] [phone] 01/22/2025 6:45 EDT Treatment [facility] [place] [address] [place], [place] [id number] Carlota Jin MD 1 [facility], [facility] 2 [place] [phone] 01/24/2025 6:45 EDT Treatment [facility] [place] [address] [place], [place] [id number] Carlota Jin MD 1 [facility], [facility] 2 [place] [phone] 01/26/2025 6:45 EDT Treatment [facility] [place] [address] [place], [place] [address] Carlota Jin MD 1 [facility], [address] [phone] 01/29/2025 6:45 EDT Treatment [facility] [place] [address] [place], [place] 606[address] Carlota Jin MD 1 [facility], [facility] 2 [place] [phone] 01/31/2025 6:45 EDT Treatment [facility] [place] [address] [place], [place] [id number] Carlota Jin MD 1 [facility], [facility] 2 [place] [phone] 02/02/2025 6:45 EDT Treatment [facility] [place] [address] [place], [place] [address] Carlota Jin MD 1 [facility], [facility] 2 [place] [phone] 02/05/2025 6:45 EDT Treatment [facility] [place] [address] [place] [address] Carlota Jin MD 1 [facility], [address] [phone] 02/07/2025 6:45 EDT Treatment [facility] [place] [address] [place], [place] [address] Carlota Jin MD 1 [facility], [address] [phone] 02/09/2025 6:45 EDT Treatment [facility] [place] [address] [place] [address] Carlota Jin MD 1 [facility], [address] [phone] 02/12/2025 6:45 EDT Treatment [facility] [place] [address] [place], [place] [id number] Carlota Jin MD [address] [phone] 02/14/2025 6:45 EDT Treatment [facility] [place] [address] [place], [place] [id number] Carlota Jin MD 1 [facility], [facility] 2 [place] [phone] 02/16/2025 6:45 EDT Treatment [facility] [place] [address] [place], [place] [id number] Carlota Jin MD [address] [place] [address], [facility] 2 [place] [phone] 02/19/2025 6:45 EDT Treatment [facility] [place] [address] [place], [place] [id number] Carlota Jin MD [address] [place] [address], [address] [phone] 02/21/2025 6:45 [facility] [address] [place], [place] [id number] Carlota Jin MD [address] [place] [address], [address] [phone] documented as of this encounter Visit Diagnoses Not on filedocumented in this encounter Care Teams Painter Shipyard Relationship Specialty Start Date End Date Adeola Villegas APRN Moh[address] [facility] [address] [place], [place] [phone] PCP - General 10/12/16 07/06/23 documented as of this encounter
--- OUTSIDE RECORDS SUMMARY | 2024-12-05 12:30 | XMS_ITS | Encounter Summary ---
Author Organization [facility] Address [address] [place] [address] Care Team Providers Care Hardware Test Engineer Name Role Phone Adeola Villegas APRN Primary Care Provider [phone] Encounter Details Date Type Department Care Team (Late st Contact Info) Description 12/25/2022 7:15 EST Treatment [facility] [address] [place], [place] [phone] Carlota Jin MD 1 [facility], Level 2 [place] [address] Hypoalbuminemia (Primary Dx); Encounter for immunization; ESRD (end stage renal disease) ([facility]) Social History Tobacco Use [...] - Temperature - - Respiratory Rate 12 12/25/2022 1101 EST Oxygen Saturation - - Inhaled Oxygen Concentration - - Weight 89.4 kg (197 lb 1.5 oz) 12/25/[address] Height - - Body Mass Index - - documented in this encounter Miscellaneous Notes * Flowsheet Note - Marcela Cox RN - 12/25/2022 1237 EST 12/25/22 1101 Post-Hemodialysis Assessment Total Blood Processed (L) 90.73 Liters Dialyzer Clearance Lightly streaked Treatment UFR (ml:kg:hr) 6.9 ml:kg:hr Critline refill Not done Fluid Removed (L) 2.5 L Post-Dialysis Scale Weight 88.4 kg (194 lb 14.2 oz) Wheelchair Weight 0 kg (0 lb) Prosthesis Weight 1.4 kg (3 lb 1.4 oz) Post-Treatment Weight (kg) 87 Treatment Weight Change (kg) 2.4 kg Day Target Weight (kg) 87.4 Post Sitting/Lying BP 178/89 Post Sitting/Lying pulse 67 Post Standing BP 143/79 Post Standing Pulse 72 Temp 36 ??C (96.8 ??F) Temp src Temporal Resp 12 Post [...] Contact Info) Description 12/06/2024 6:45 EST Treatment [facility] [address] [place], [place] [phone] Carlota Jin MD [address] [place] [address], [facility] 2 [place] [address] 12/08/2024 6:45 EST Treatment [facility] [address] [place], [place] [phone] Carlota Jin MD [address] [place] [address], [facility] 2 [place] [address] 12/11/2024 6:45 EST Treatment [facility] [address] [place], [place] [id number] Carlota Jin MD 1 [facility], [facility] 2 [place] [phone] 12/13/2024 6:45 EST Treatment [facility] [address] [place], [place] [id number] Carlota Jin MD 1 [facility], [facility] 2 [place] [phone] 12/15/2024 6:45 EST Treatment [facility] [address] [place], [place] [phone] Carlota Jin MD 1 [facility], [facility] 2 [place] [phone] 12/18/2024 6:45 EST Treatment [facility] [address] [place], [place] [phone] Carlota Jin MD 1 [facility], [facility] 2 [place] [phone] 12/20/2024 6:45 EST Treatment [facility] [address] [place], [place] [phone] Carlota Jin MD 1 [facility], [facility] 2 [place] [phone] 12/22/2024 6:45 EST Treatment [facility] [address] [place], [place] [id number] Carlota Jin MD [address] [facility], [facility] 2 [place] [phone] 12/25/2024 6:45 EST Treatment [facility] [address] [place], [place] [phone] Carlota Jin MD 1 [facility], [facility] 2 [place] [phone] 12/27/2024 6:45 EST Treatment [facility] [address] [place], [place] [phone] Carlota Jin MD [address] [facility], [facility] 2 [place] [phone] 12/29/2024 6:45 EST Treatment [facility] [address] [place], [place] [id number] Carlota Jin MD 1 [facility], [address] [phone] 01/01/2025 6:45 EDT Treatment [facility] [address] [place] [address] Carlota Jin MD 1 [facility], [facility] 2 [place] [phone] 01/03/2025 6:45 EDT Treatment [facility] [address] [place], [place] [id number] Carlota Jin MD [address] [facility], [facility] 2 [place] [phone] 01/05/2025 6:45 EDT Treatment [facility] [address] [place], [place] [phone] Carlota Jin MD [address] [facility], [facility] 2 [place] [phone] 01/08/2025 6:45 EDT Treatment [facility] [address] [place], [place] [id number] Carlota Jin MD [address] [place] [address], [address] [phone] 01/10/2025 6:45 EDT Treatment [facility] [address] [place], [place] [id number] Carlota Jin MD [address] [place] [address], [address] [phone] 01/12/2025 6:45 EDT Treatment [facility] [address] [place], [place] [id number] Carlota Jin MD [address] [place] [address], [address] [phone] 01/15/2025 6:45 EDT Treatment [facility] [address] [place], [place] [phone] Carlota Jin MD [address] [place] [address], [facility] 2 [place] [phone] 01/17/2025 6:45 EDT Treatment [facility] [address] [place], [place] [id number] Carlota Jin MD 1 [facility], Level 2 [place] [phone] 01/19/2025 6:45 EDT Treatment [facility] [address] [place], [place] [address] Carlota Jin MD 1 [facility], [facility] 2 [place] [phone] 01/22/2025 6:45 EDT Treatment [facility] [address] [place], [place] [id number] Carlota Jin MD 1 [facility], [facility] 2 [place] [phone] 01/24/2025 6:45 EDT Treatment [facility] [address] [place] [address] Carlota Jin MD 1 [facility], [facility] 2 [place] [phone] 01/26/2025 6:45 EDT Treatment [facility] [address] [place], [place] [id number] Carlota Jin MD 1 [facility], [facility] 2 [place] [phone] 01/29/2025 6:45 EDT Treatment [facility] [address] [place], [place] [id number] Carlota Jin MD 1 [facility], [facility] 2 [place] [phone] 01/31/2025 6:45 EDT Treatment [facility] [address] [place], [place] [id number] Carlota Jin MD [address] [facility], [facility] 2 [place] [phone] 02/02/2025 6:45 EDT Treatment [facility] [address] [place], [place] [id number] Carlota Jin MD [address] [facility], [facility] 2 [place] [phone] 02/05/2025 6:45 EDT Treatment [facility] [address] [place] [address] Carlota Jin MD [address] [place] [address], [facility] 2 [place] [phone] 02/07/2025 6:45 EDT Treatment [facility] [address] [place], [place] [id number] Carlota Jin MD [address] [facility], [facility] 2 [place] [phone] 02/09/2025 6:45 EDT Treatment [facility] [address] [place], [place] [id number] Carlota Jin MD 1 [facility], [facility] 2 [place] [phone] 02/12/2025 6:45 EDT Treatment [facility] [address] [place] [phone] Carlota Jin MD [address] [phone] 02/14/2025 6:45 EDT Treatment [facility] [address] [place], [place] [id number] Carlota Jin MD [address] [phone] 02/16/2025 6:45 EDT Treatment [facility] [address] [place], [place] [id number] Carlota Jin MD [address] [place] [phone] 02/19/2025 6:45 EDT Treatment [facility] [address] [place], [place] [phone] Carlota Jin MD [address] [phone] 02/21/2025 6:45 EDT Treatment [facility] [address] [place], [place] [id number] Carlota Jin MD [address] [phone] documented as of this encounter Procedures Procedure Name Priority Date/Time Associated Diagnosis Comments HEMODIALYSIS Routine 12/25/2022 6:50 EST Hypoalbuminemia Encounter for immunization ESRD (end stage renal disease) ([facility]) documented in this encounter Visit Diagnoses Diagnosis Hypoalbuminemia- Primary Other disorders of plasma protein metabolism Encounter for immunization Need for other specified prophylactic vaccination against single bacterial disease ESRD (end stage renal disease) ([facility]) End stage renal disease documented in this encounter Administered Medications Inactive Administered Medications - up to 3 most recent administrations Medication Order MAR Action Action Date Dose Rate Site epoetin ken (EPOGEN) 20,000 unit/2 mL injection 500 Units 500 Units, intravenous, ONCE IN DIALYSIS, 1 dose, On Wed12/25/22 at 0715, Routine, DialysisIndications:Hypoalbumine bozena,Encounter for immunization,ESRD (end stage renal disease) ([facility]) Given 12/25/2022 7:16 EST 500 Units heparin injection 9,000 Units 9,000 Units, intravenous, ONCE IN DIALYSIS, 1 dose, On Wed12/25/22 at 0715, Routine, Dialysis, Now x1 bolus 4500 units to be given at the beginning of dialysis 1500 units/hour to be given over the course of dialysis (9000 units total). Stop 1 hour prior to end of treatment. To be administered per Policy [id number].Indications:Hypoalbumine bozena,Encounter for immunization,ESRD (end stage renal disease) ([facility]) Given 12/25/2022 7:00 EST 9,000 Units protein bar 1 Bar 1 Bar, oral, ONCE IN DIALYSIS, 1 dose, On Wed12/25/22 at 0715, RoutineIndications:Hypoalbuminem ia,ESRD (end stage renal disease) ([facility]) Given 12/25/2022 7:16 EST 1 Bar documented in this encounter Orders Dialysis Count Last Ordered Date First Orde red Date HEMODIALYSIS 1 12/25/2022 documented in this encounter Care Teams Hardware Test Engineer Relationship Specialty Start Date End Date Adeola Villegas APRN [address] [place] [address] PCP - General 10/12/16 07/06/23 documented as of this encounter
--- OUTSIDE RECORDS SUMMARY | 2024-12-05 12:30 | XMS_ITS | Encounter Summary ---
Author Organization [facility] Address [address] [place] [address] Care Team Providers Care Stereo Equipment Installer Name Role Phone Adeola Villegas APRN Primary Care Provider [phone] Encounter Details Date Type Department Care Team (Late st Contact Info) Description 12/18/2022 7:15 EST Treatment [facility] [address] [place], [place] [phone] Carlota Jin MD 1 [facility], Level 2 [place] [address] Hypoalbuminemia (Primary Dx); Encounter for immunization; ESRD (end stage renal disease) ([facility]) Social History Tobacco Use Types Packs/Day [...] - Temperature - - Respiratory Rate 12 12/18/2022 0651 EST Oxygen Saturation - - Inhaled Oxygen Concentration - - Weight 89.5 kg (197 lb 5 oz) 12/18/2022 0651 EST Height - - Body Mass Index - - documented in this encounter Miscellaneous Notes * Flowsheet Note - Melissa Crespo RN - 12/18/2022 1434 EST 12/18/22 1108 Post-Hemodialysis Assessment Total Blood Processed (L) 90.08 Liters Dialyzer Clearance Lightly streaked Treatment UFR (ml:kg:hr) 8.6 ml:kg:hr Fluid Removed (L) 3 L Post-Dialysis Scale Weight 86.5 kg (190 lb 11.2 oz) Wheelchair Weight 0 kg (0 lb) Prosthesis Weight 0 kg (0 lb) Post-Treatment Weight (kg) 86.5 Treatment Weight Change (kg) 3 kg Day Target Weight (kg) 87 Post Sitting/Lying BP 169/83 Post Sitting/Lying pulse 65 Post Standing BP 126/68 Post Standing Pulse 69 Temp 36.5 ??C [...] [facility] [address] [place], [place] [phone] Carlota Jin MD [address] [place] [address], [facility] 2 [place] [phone] 12/08/2024 6:45 EST Treatment [facility] [address] [place] [phone] Carlota Jin MD [address] [place] [address], [facility] 2 [place] [phone] 12/11/2024 6:45 EST Treatment [facility] [address] [place] [id number] Carlota Jin MD 1 [facility], Level [address] [place] [phone] 12/13/2024 6:45 EST Treatment [facility] [place] [address] [place], [place] [id number] Carlota Jin MD 1 [facility], [facility] 2 [place] [phone] 12/15/2024 6:45 EST Treatment [facility] [place] [address] [place], [place] [id number] Carlota Jin MD 1 [facility], [facility] 2 [place] [phone] 12/18/2024 6:45 EST Treatment [facility] [place] [address] [place] [address] Carlota Jin MD 1 [facility], [facility] 2 [place] [phone] 12/20/2024 6:45 EST Treatment [facility] [address] [place] [address] Carlota Jin MD 1 [facility], [facility] 2 [place] [phone] 12/22/2024 6:45 EST Treatment [facility] [place] [address] [place], [place] [id number] Carlota Jin MD 1 [facility], [facility] 2 [place] [phone] 12/25/2024 6:45 EST Treatment [facility] [place] [address] [place], [place] [id number] Carlota Jin MD 1 [facility], [facility] 2 [place] [phone] 12/27/2024 6:45 EST Treatment [facility] [place] [address] [place], [place] [id number] Carlota Jin MD 1 [facility], [facility] 2 [place] [phone] 12/29/2024 6:45 EST Treatment [facility] [place] [address] [place], [place] [id number] Carlota Jin MD 1 [facility], [facility] 2 [place] [phone] 01/01/2025 6:45 EDT Treatment [facility] [place] [address] [place], [place] [id number] Carlota Jin MD 1 [facility], [facility] 2 [place] [phone] 01/03/2025 6:45 EDT Treatment [facility] [place] [address] [place], [place] [id number] Carlota Jin MD 1 [facility], [facility] 2 [place] [phone] 01/05/2025 6:45 EDT Treatment [facility] [place] [address] [place], [place] [id number] Carlota Jin MD 1 [facility], [facility] 2 [place] [phone] 01/08/2025 6:45 EDT Treatment [facility] [place] [address] [place], [place] [id number] Carlota Jin MD 1 [facility], [facility] 2 [place] [phone] 01/10/2025 6:45 EDT Treatment [facility] [place] [address] [place], [place] [id number] Carlota Jin MD 1 [facility], [facility] 2 [place] [phone] 01/12/2025 6:45 EDT Treatment [facility] [place] [address] [place] [address] Carlota Jin MD 1 [facility], [facility] 2 [place] [phone] 01/15/2025 6:45 EDT Treatment [facility] [place] [address] [place], [place] [id number] Carlota Jin MD 1 [facility], [facility] 2 [place] [phone] 01/17/2025 6:45 EDT Treatment [facility] [place] [address] [place], [place] [id number] Carlota Jin MD 1 [facility], [facility] 2 [place] [phone] 01/19/2025 6:45 EDT Treatment [facility] [place] [address] [place], [place] [id number] Carlota Jin MD 1 [facility], [facility] 2 [place] [phone] 01/22/2025 6:45 EDT Treatment [facility] [place] [address] [place], [place] [id number] Carlota Jin MD 1 [facility], [facility] 2 [place] [phone] 01/24/2025 6:45 EDT Treatment [facility] [place] [address] [place], [place] [id number] Carlota Jin MD 1 [facility], [facility] 2 [place] [phone] 01/26/2025 6:45 EDT Treatment [facility] [place] [address] [place], [place] [id number] Carlota Jin MD 1 [facility], [facility] 2 [place] [phone] 01/29/2025 6:45 EDT Treatment [facility] [place] [address] [place], [place] [id number] Carlota Jin MD 1 [facility], [facility] 2 [place] [phone] 01/31/2025 6:45 EDT Treatment [facility] [place] [address] [place], [place] [address] Carlota Jin MD 1 [facility], [facility] 2 [place] [phone] 02/02/2025 6:45 EDT Treatment [facility] [place] [address] [place] [address] Carlota Jin MD 1 [facility], [facility] 2 [place] [phone] 02/05/2025 6:45 EDT Treatment [facility] [place] [address] [place], [place] [id number] Carlota Jin MD 1 [facility], [facility] 2 [place] [phone] 02/07/2025 6:45 EDT Treatment [facility] [place] [address] [place], [place] [id number] Carlota Jin MD 1 [facility], [facility] 2 [place] [phone] 02/09/2025 6:45 EDT Treatment [facility] [place] [address] [place], [place] [id number] Carlota Jin MD 1 [facility], [facility] 2 [place] [phone] 02/12/2025 6:45 EDT Treatment [facility] [place] [address] [place], [place] [id number] Carlota Jin MD 1 [facility], [facility] 2 [place] [phone] 02/14/2025 6:45 EDT Treatment [facility] [address] [place], [place] [id number] Carlota Jin MD [address] [place] [phone] 02/16/2025 6:45 EDT Treatment [facility] [address] [place], [place] [id number] Carlota Jin MD [address] [place] [phone] 02/19/2025 6:45 EDT [facility] [address] [place], [place] [id number] Carlota Jin MD [address] [place] [phone] 02/21/2025 6:45 EDT [facility] [address] [place], [place] [id number] Carlota Jin MD [address] [place] [phone] documented as of this encounter Procedures Procedure Name Priority Date/Time Associated Diagnosis Comments HEMODIALYSIS Routine 12/18/2022 6:56 EST Hypoalbuminemia Encounter for immunization ESRD (end stage renal disease) ([facility]) documented in this encounter Visit Diagnoses Diagnosis Hypoalbuminemia- Primary Other disorders of plasma protein metabolism Encounter for immunization Need for other specified prophylactic vaccination against single bacterial disease ESRD (end stage renal disease) ([facility]) End stage renal disease documented in this encounter Administered Medications Inactive Administered Medications - up to 3 most recent administrations Medication Order MAR Action Action Date Dose Rate Site epoetin ken (EPOGEN) 20,000 unit/2 mL injection 500 Units 500 Units, intravenous, ONCE IN DIALYSIS, 1 dose, On Wed12/18/22 at 0715, Routine, DialysisIndications:Hypoalbumine bozena,Encounter for immunization,ESRD (end stage renal disease) ([facility]) Given 12/18/2022 7:39 EST 500 Units heparin injection 9,000 Units 9,000 Units, intravenous, ONCE IN DIALYSIS, 1 dose, On Wed12/18/22 at 0715, Routine, Dialysis, Now x1 bolus 4500 units to be given at the beginning of dialysis 1500 units/hour to be given over the course of dialysis (9000 units total). Stop 1 hour prior to end of treatment. To be administered per Policy [id number].Indications:Hypoalbumine bozena,Encounter for immunization,ESRD (end stage renal disease) ([facility]) Given 12/18/2022 7:05 EST 9,000 Units special k protein bar 1 Bar 1 Bar, oral, ONCE IN DIALYSIS, 1 dose, On Wed12/18/22 at 0715, RoutineIndications:Hypoalbuminem ia,ESRD (end stage renal disease) ([facility]) Given 12/18/2022 7:39 EST 1 Bar documented in this encounter Orders Dialysis Count Last Ordered Date First Orde red Date HEMODIALYSIS 1 12/18/2022 documented in this encounter Care Teams Stereo Equipment Installer Relationship Specialty Start Date End Date Adeola Villegas APRN [address] [place] [address] PCP - General 10/12/16 07/06/23 documented as of this encounter
--- OUTSIDE RECORDS SUMMARY | 2024-12-05 12:30 | XMS_ITS | Encounter Summary ---
Author Organization [facility] Address [address] [place] [address] Care Team Providers Care Dean Of Education Name Role Phone Adeola Villegas APRN Primary Care Provider [phone] Encounter Details Date Type Department Care Team (Late st Contact Info) Description 12/15/2022 Documentation Visit [facility] [address] [place], [place] [id number] Shelley Eden, RD [address] [place] [address] Social History Tobacco Use Types Packs/Day Years [...] EST Treatment [facility] [address] [place], [place] [address] Carlota Jin MD [address] [place] [address] [phone] 12/08/2024 6:45 EST Treatment [facility] [address] [place] [id number] Carlota Jin MD [address] [place], [place] [address], [place] [phone] 12/11/2024 6:45 EST Treatment [facility] [place] [address] [place], [place] [id number] Carlota Jin MD 1 [facility] [address] [place] [phone] 12/13/2024 6:45 EST Treatment [facility] [address] [place], [place] [id number] Carlota Jin MD 1 [facility], [facility] [address] [place] [phone] 12/15/2024 6:45 EST Treatment [facility] [address] [place], [place] [id number] Carlota Jin MD 1 [facility], [facility] [address] [place] [phone] 12/18/2024 6:45 EST [facility] [address] [place] [address] Carlota Jin MD 1 [facility], [facility] [address] [place] [phone] 12/20/2024 6:45 EST Treatment [facility] [address] [place], [place] [id number] Carlota Jin MD 1 [facility], [facility] [address] [place] [phone] 12/22/2024 6:45 EST Treatment [facility] [place] [address] [place], [place] [address] Carlota Jin MD 1 [facility], [facility] [address] [place] [phone] 12/25/2024 6:45 EST Treatment [facility] [place] [address] [place], [place] [id number] Carlota Jin MD 1 [facility], [facility] [address] [place] [phone] 12/27/2024 6:45 EST Treatment [facility] [place] [address] [place], [place] [id number] Carlota Jin MD 1 [facility], [facility] [address] [place] [phone] 12/29/2024 6:45 EST Treatment [facility] [place] [address] [place], [place] [id number] Carlota Jin MD 1 [facility], [facility] [address] [place] [phone] 01/01/2025 6:45 EDT Treatment [facility] [place] [address] [place], [place] [id number] Carlota Jin MD 1 [facility], [facility] [address] [place] [phone] 01/03/2025 6:45 EDT Treatment [facility] [place] [address] [place], [place] [id number] Carlota Jin MD 1 [facility] [address] [place] [phone] 01/05/2025 6:45 EDT Treatment [facility] [place] [address] [place], [place] [address] Carlota Jin MD 1 [facility], [facility] [address] [place] [phone] 01/08/2025 6:45 EDT Treatment [facility] [place] [address] [place], [place] [id number] Carlota iJn MD 1 [facility], [facility] [address] [place] [phone] 01/10/2025 6:45 EDT Treatment [facility] [place] [address] [place], [place] [id number] Carlota Jin MD 1 [facility], [facility] [address] [place] [phone] 01/12/2025 6:45 EDT Treatment [facility] [place] [address] [place], [place] [id number] Carlota Jin MD 1 [facility], [facility] [address] [place] [phone] 01/15/2025 6:45 EDT Treatment [facility] [address] [place], [place] [id number] Carlota Jin MD 1 [facility], [facility] [address] [place] [phone] 01/17/2025 6:45 EDT Treatment [facility] [place] [address] [place], [place] [id number] Carlota Jin MD 1 [facility], [facility] [address] [place] [phone] 01/19/2025 6:45 EDT Treatment [facility] [place] [address] [place], [place] [id number] Carlota Jin MD 1 [facility], [address] [phone] 01/22/2025 6:45 EDT Treatment [facility] [place] [address] [place], [place] [id number] Carlota Jin MD 1 [facility], [address] [phone] 01/24/2025 6:45 EDT Treatment [facility] [place] [address] [place], [place] [id number] Carlota Jin MD 1 [facility], [facility] [address] [place] [phone] 01/26/2025 6:45 EDT Treatment [facility] [place] [address] [place], [place] [id number] Carlota Jin MD 1 [facility], [facility] [address] [place] [phone] 01/29/2025 6:45 EDT Treatment [facility] [place] [address] [place], [place] [id number] Carlota Jin MD 1 [facility], [facility] [address] [place] [phone] 01/31/2025 6:45 EDT Treatment [facility] [place] [address] [place], [place] [id number] Carlota Jin MD 1 [facility], [facility] [address] [place] [phone] 02/02/2025 6:45 EDT Treatment [facility] [place] [address] [place] [address] Carl[address] Jin MD 1 [facility], [facility] [address] [place] [phone] 02/05/2025 6:45 EDT Treatment [facility] [place] [address] [place] [address] Carlota Jin MD 1 [facility], [facility] 2 [place] [phone] 02/07/2025 6:45 EDT Treatment [facility] [place] [address] [place] [address] Carlota Jin MD 1 [facility], [facility] [address] [place] [phone] 02/09/2025 6:45 EDT Treatment [facility] [place] [address] [place], [place] [id number] Carlota Jin MD 1 [facility], [facility] 2 [place] [phone] 02/12/2025 6:45 EDT Treatment [facility] [place] [address] [place], [place] [id number] Carlota Jin MD [address] [phone] 02/14/2025 6:45 EDT Treatment [facility] [place] [address] [place], [place] [id number] Carlota Jin MD [address] [phone] 02/16/2025 6:45 EDT Treatment [facility] [place] [address] [place], [place] [address] Carlota Jin MD [address] [place] [address] [phone] 02/19/2025 6:45 EDT Treatment [facility] [place] [address] [place], [place] [id number] Carlota Jin MD [address] [place] [address] [phone] 02/21/2025 6:45 EDT Treatment [facility] [place] [address] [place], [place] [id number] Carlota Jin MD [address] [phone] documented as of this encounter Visit Diagnoses Not on filedocumented in this encounter Care Teams Dean Of Education Relationship Specialty Start Date End Date Adeola Villegas APRN [address] [place] [address] PCP - General 10/12/16 07/06/23 documented as of this encounter
--- OUTSIDE RECORDS SUMMARY | 2024-12-05 12:31 | XMS_ITS | Encounter Summary ---
Author Organization [facility] Address [address] [place] [address] Care Team Providers Care Lacemaker Name Role Phone Adeola Villgeas MONA Primary Care Provider [phone] Ken Greer MD Primary Care Provider [phone] Kiel Powers Unavailable Unavailable Encounter Details Date Type Department Care Team (Late st Contact Info) Description 11/18/2022 Documentation Visit [facility] [address] [place], [place] [address] Alexa Estrada [facility] [address] [place], [place] [id number] Social History Tobacco Use Types Packs/Day Years [...] 12/06/2024 6:45 EST Treatment [facility] [address] [place], [place] [id number] Carl[facility] Jin MD [facility] [address] [place] [phone] 12/08/2024 6:45 EST Treatment [facility] [place] [address] [place], [place] [address] Carlota Jin MD 1 [facility], [facility] [address] [place] [phone] 12/11/2024 6:45 EST Treatment [facility] [place] [address] [place] [address] Carlota Jin MD 1 [facility], [address] [phone] 12/13/2024 6:45 EST Treatment [facility] [place] [address] [place], [place] [id number] Carlota Jin MD 1 [facility], [address] [phone] 12/15/2024 6:45 EST Treatment [facility] [address] [place] [address] Carlota Jin MD 1 [facility], [address] [phone] 12/18/2024 6:45 EST Treatment [facility] [address] [place], [place] [id number] Carlota Jin MD [address] [place] [address] [phone] 12/20/2024 6:45 EST Treatment [facility] [place] [address] [place], [place] [id number] Carlota Jin MD 1 [facility], [facility] [address] [place] [phone] 12/22/2024 6:45 EST Treatment [facility] [place] [address] [place], [place] [id number] Carlota Jin MD 1 [facility], [facility] [address] [place] [phone] 12/25/2024 6:45 EST Treatment [facility] [address] [place], [place] [id number] Carlota Jin MD 1 [facility], [facility] [address] [place] [phone] 12/27/2024 6:45 EST Treatment [facility] [place] [address] [place] [address] Carlota Jin MD 1 [facility], [facility] [address] [place] [phone] 12/29/2024 6:45 EST Treatment [facility] [place] [address] [place], [place] [id number] Carlota Jin MD 1 [facility], [facility] [address] [place] [phone] 01/01/2025 6:45 EDT Treatment [facility] [address] [place], [place] [id number] Carlota Jin MD 1 [facility], [facility] [address] [place] [phone] 01/03/2025 6:45 EDT Treatment [facility] [address] [place], [place] [address] Carlota Jin MD 1 [facility], [facility] [address] [place] [phone] 01/05/2025 6:45 EDT Treatment [facility] [place] [address] [place], [place] [id number] Carlota Jin MD 1 [facility], [facility] [address] [place] [phone] 01/08/2025 6:45 EDT Treatment [facility] [address] [place], [place] [id number] Carlota Jin MD 1 [facility], [facility] [address] [place] [phone] 01/10/2025 6:45 EDT Treatment [facility] [address] [place], [place] [id number] Carlota Jin MD 1 [facility], [facility] [address] [place] [phone] 01/12/2025 6:45 EDT Treatment [facility] [address] [place], [place] [id number] Carlota Jin MD 1 [facility], [facility] [address] [place] [phone] 01/15/2025 6:45 EDT Treatment [facility] [address] [place], [place] [id number] Carlota Jin MD 1 [facility], [facility] [address] [place] [phone] 01/17/2025 6:45 EDT Treatment [facility] [address] [place], [place] [id number] Carlota Jin MD 1 [facility], [facility] [address] [place] [phone] 01/19/2025 6:45 EDT Treatment [facility] [address] [place], [place] [id number] Carlota Jin MD 1 [facility], [facility] [address] [place] [phone] 01/22/2025 6:45 EDT Treatment [facility] [address] [place], [place] [id number] Carlota Jin MD 1 [facility], [facility] [address] [place] [phone] 01/24/2025 6:45 EDT Treatment [facility] [address] [place], [place] [id number] Carlota Jin MD 1 [facility], [facility] [address] [place] [phone] 01/26/2025 6:45 EDT Treatment [facility] [address] [place], [place] [id number] Carlota Jin MD 1 [facility], [facility] [address] [place] [phone] 01/29/2025 6:45 EDT Treatment [facility] [place] [address] [place], [place] [id number] Carlota Jin MD 1 [facility], [facility] [address] [place] [phone] 01/31/2025 6:45 EDT Treatment [facility] [place] [address] [place], [place] [id number] Carlota Jin MD [address] [place] [address], [address] [phone] 02/02/2025 6:45 EDT Treatment [facility] [place] [address] [place], [place] [id number] Carlota Jin MD [address] [place] [address], [address] [phone] 02/05/2025 6:45 EDT Treatment [facility] [address] [place], [place] [id number] Carlota Jin MD 1 [facility], [facility] [address] [place] [phone] 02/07/2025 6:45 EDT Treatment [facility] [address] [place], [place] [id number] Carlota Jin MD 1 [facility], [facility] [address] [place] [phone] 02/09/2025 6:45 EDT Treatment [facility] [place] [address] [place], [place] [id number] Carlota Jin MD 1 [facility], [facility] [address] [place] [phone] 02/12/2025 6:45 EDT Treatment [facility] [place] [address] [place], [place] [address] Carlota Jin MD 1 [facility], [facility] [address] [place] [phone] 02/14/2025 6:45 EDT Treatment [facility] [address] [place], [place] [id number] Carlota Jin MD 1 [facility], [facility] [address] [place] [phone] 02/16/2025 6:45 EDT Treatment [facility] [address] [place] [address] Carlota Jin MD 1 [facility], [facility] [address] [place] [phone] 02/19/2025 6:45 EDT Treatment [facility] [address] [place] [address] Carlota Jin MD 1 [facility], [facility] [address] [place] [phone] 02/21/2025 6:45 EDT Treatment [facility] [address] [place], [place] [id number] Carlota Jin MD 1 [facility], [facility] [address] [place] [phone] documented as of this encounter Visit Diagnoses Not on filedocumented in this encounter Additional Health Concerns Infection Onset Date Last Indicated Resolved Time COVID-19 Comment:COVID+ 11/05/23 @[facility] (see scan) 11/08/2023 11/08/2023 11/17/2023 13:58 EST R/O COVID-19 12/20/2023 12/20/2023 12/20/2023 7:14 EST COVID-19 Comment:Collected @ [facility]. 03/12/2024 03/13/2024 04/01/2024 22: 15 EDT R/O COVID-19 05/30/2024 05/30/2024 05/30/2024 20:5 0 EDT documented as of this encounter Care Teams Lacemaker Relationship Specialty Start Date End Date Adeola Villegas APRN [address] [place] [address] PCP - General 10/12/16 07/06/23 Ken Greer MD [address] [place] [address] PCP - General 07/07/23 Kiel Powers [facility] 05/31/24 documented as of this encounter
--- OUTSIDE RECORDS SUMMARY | 2024-12-05 12:31 | XMS_ITS | Encounter Summary ---
Author Organization [facility] Address [address] [place] [address] Care Team Providers Care Technical Photographer Name Role Phone Adeola Villegas MONA Primary Care Provider [phone] Encounter Details Date Type Department Care Team (Late st Contact Info) Description 12/02/2022 7:15 EST Treatment [facility] [address] [place], [place] [id number] Carlota Jin MD 1 [facility], Level 2 [place] [address] Encounter for immunization (Primary Dx); ESRD (end stage renal disease) ([facility]) Social History Tobacco Use [...] - Temperature - - Respiratory Rate 12 12/02/2022 1119 EST Oxygen Saturation - - Inhaled Oxygen Concentration - - Weight 90.4 kg (199 lb 4.7 oz) 12/02/[address] Height - - Body Mass Index - - documented in this encounter Ordered Prescriptions Prescription Sig Dispense Quantity Refills Last Filled Start Date End Date sevelamer hydrochloride (RENAGEL) 800 mg tablet Take 2 Tablets by mouth 3 times daily. 540 Tablet 3 12/02/2022 3 documented in this encounter Miscellaneous Notes * Flowsheet Note - Melissa Crespo RN - 12/02/2022 1519 EST 12/02/22 1119 Post-Hemodialysis Assessment Total Blood Processed (L) 89.9 Liters Dialyzer Clearance Lightly streaked Treatment UFR (ml:kg:hr) 7.63 ml:kg:hr Critline refill Not done Fluid Removed (L) 3 L Post-Dialysis Scale Weight 87.7 kg (193 lb 5.5 oz) Wheelchair Weight 0 kg (0 lb) Prosthesis Weight 0 kg (0 lb) Post-Treatment Weight (kg) 87.7 Treatment Weight Change (kg) 2.7 kg Day Target Weight (kg) 87.9 Post Sitting/Lying BP 141/77 Post Sitting/Lying pulse 80 Post Standing BP 126/73 Post Standing Pulse 71 Temp 36.2 ??C (97.2 ??F) Temp src Temporal Resp 12 Post [...] Dialysis Rounding - Skye Gomez NP - 12/02/2022 0715 EST Dialysis Provider's Routine Assessment The visit was conducted via telehealth (audio/video) between the [facility] dialysis unit and the provider from their [...] None Changes to current prescriptions/orders: None Pt requests refill of Renagel from [facility] pharmacy-Rx sent. Skye Gomez NP documented in this encounter Plan of Treatment Upcoming Encounters Date Type Department Care Team (Late st Contact Info) Description 12/06/2024 6:45 EST Treatment [facility] [address] [place], [place] [phone] Carlota Jin MD [address] [place] [phone] 12/08/2024 6:45 EST Treatment [facility] [address] [place], [place] [id number] Carlota Jin MD [address] [place] [phone] 12/11/2024 6:45 EST Treatment [facility] [address] [place], [place] [id number] Carlota Jin MD [address] [place] [phone] 12/13/2024 6:45 EST [facility] [address] [place], [place] [phone] Carlota Jin MD [address] [place], [place] [address], [place] [phone] 12/15/2024 6:45 EST Treatment [facility] [place] [address] [place], [place] [id number] Carlota Jin MD 1 [facility] 2 [place] [phone] 12/18/2024 6:45 EST Treatment [facility] [address] [place], [place] [phone] Carlota Jin MD 1 [facility], [facility] 2 [place] [phone] 12/20/2024 6:45 EST Treatment [facility] [address] [place], [place] [id number] Carlota Jin MD 1 [facility], [facility] 2 [place] [phone] 12/22/2024 6:45 EST [facility] [address] [place], [place] [phone] Carlota Jin MD 1 [facility], [facility] 2 [place] [phone] 12/25/2024 6:45 EST Treatment [facility] [address] [place], [place] [id number] Carlota Jin MD 1 [facility], [facility] 2 [place] [phone] 12/27/2024 6:45 EST Treatment [facility] [place] [address] [place], [place] [address] Carlota Jin MD 1 [facility], [facility] 2 [place] [phone] 12/29/2024 6:45 EST Treatment [facility] [place] [address] [place], [place] [id number] Carlota Jin MD 1 [facility], [facility] 2 [place] [phone] 01/01/2025 6:45 EDT Treatment [facility] [place] [address] [place], [place] [id number] Carlota Jin MD 1 [facility], [facility] 2 [place] [phone] 01/03/2025 6:45 EDT Treatment [facility] [place] [address] [place], [place] [id number] Carlota Jin MD 1 [facility], [facility] 2 [place] [phone] 01/05/2025 6:45 EDT Treatment [facility] [place] [address] [place], [place] [id number] Carlota Jin MD 1 [facility], [facility] 2 [place] [phone] 01/08/2025 6:45 EDT Treatment [facility] [place] [address] [place], [place] [id number] Carlota Jin MD 1 [facility], [facility] 2 [place] [phone] 01/10/2025 6:45 EDT Treatment [facility] [place] [address] [place], [place] [address] Carlota Jin MD 1 [facility], [facility] 2 [place] [phone] 01/12/2025 6:45 EDT Treatment [facility] [place] [address] [place], [place] [id number] Carlota Jin MD 1 [facility], [facility] 2 [place] [phone] 01/15/2025 6:45 EDT Treatment [facility] [place] [address] [place], [place] [phone] Carlota Jin MD 1 [facility], [facility] 2 [place] [phone] 01/17/2025 6:45 EDT Treatment [facility] [place] [address] [place], [place] [id number] Carlota Jin MD 1 [facility], [facility] 2 [place] [phone] 01/19/2025 6:45 EDT Treatment [facility] [place] [address] [place], [place] [phone] Carlota Jin MD 1 [facility], [facility] 2 [place] [phone] 01/22/2025 6:45 EDT Treatment [facility] [place] [address] [place], [place] [phone] Carlota Jin MD 1 [facility], [facility] 2 [place] [phone] 01/24/2025 6:45 EDT Treatment [facility] [place] [address] [place], [place] [phone] Carlota Jin MD [address] [place] [address], [facility] 2 [place] [phone] 01/26/2025 6:45 EDT Treatment [facility] [place] [address] [place], [place] [id number] Carlota Jin MD [address] [place] [address], [address] [phone] 01/29/2025 6:45 EDT Treatment [facility] [place] [address] [place], [place] [phone] Carlota Jin MD [address] [place] [address], [facility] 2 [place] [phone] 01/31/2025 6:45 EDT Treatment [facility] [place] [address] [place], [place] [phone] Carlota Jin MD 1 [facility], [facility] 2 [place] [phone] 02/02/2025 6:45 EDT Treatment [facility] [place] [address] [place], [place] [phone] Carlota Jin MD 1 [facility], [facility] 2 [place] [phone] 02/05/2025 6:45 EDT Treatment [facility] [place] [address] [place], [place] [phone] Carlota Jin MD 1 [facility], [facility] 2 [place] [phone] 02/07/2025 6:45 EDT Treatment [facility] [place] [address] [place], [place] [id number] Carlota Jin MD 1 [facility], [facility] 2 [place] [phone] 02/09/2025 6:45 EDT Treatment [facility] [place] [address] [place] [address] Carlota Jin MD 1 [facility], [facility] 2 [place] [phone] 02/12/2025 6:45 EDT Treatment [facility] [place] [address] [place] [address] Carlota Jin MD 1 [facility], [facility] 2 [place] [phone] 02/14/2025 6:45 EDT Treatment [facility] [place] [address] [place], [place] [phone] Carlota Jin MD 1 [facility], [facility] 2 [place] [phone] 02/16/2025 6:45 EDT Treatment [facility] [place] [address] [place], [place] [id number] Carlota Jin MD 1 [facility], [facility] 2 [place] [phone] 02/19/2025 6:45 EDT Treatment [facility] [address] [place], [place] [id number] Carlota Jin MD 1 [facility], [facility] 2 [place] [phone] 02/21/2025 6:45 EDT Treatment [facility] [address] [place], [place] [phone] Carlota Jin MD 1 [facility], [facility] 2 [place] [phone] documented as of this encounter Procedures Procedure Name Priority Date/Time Associated Diagnosis Comments COMPLETE BLOOD COUNT Routine 12/02/2022 7:41 EST Encounter for immunization ESRD (end stage renal disease) ([facility]) HEMODIALYSIS Routine 12/02/2022 7:03 EST Encounter for immunization ESRD (end stage renal disease) ([facility]) documented in this encounter Results * (ABNORMAL) COMPLETE BLOOD COUNT (12/02/2022 7:41 EST) WBC 6.88 4.00 - 10.40 K/cmm 12/02/2022 21:35 EST [facility] RBC 3.34(L) 4.36 - 5.78 M/cmm 12/02/2022 21:35 EST [facility] Hemoglobin 10.7(L) 13.8 - 17.3 gm/dL 12/02/2022 21:35 [facility] HCT 32.3(L) 39.5 - 50.2 % 12/02/2022 21:35 [facility] MCV 97(H) 81 - 95 fl 12/02/2022 21:35 [facility] MCH 32.0 27.6 - 33.0 pg 12/02/2022 21:35 [facility] MCHC 33.1 32.8 - 36.4 gm/dL 12/02/2022 21:35 [facility] RDW-CV 13.1 <14.2 % 12/02/2022 21:35 [facility] RDW-SD 46.4(H) <46.0 fl 12/02/2022 21:35 [facility] PLT 249 141 - 377 K/cmm 12/02/2022 21:35 [facility] MPV 11.5 9.5 - 12.7 fl 12/02/2022 21:35 [facility] Blood VENOUS BLOOD / Unknown Venipuncture / Unknown 12/02/2022 7:41 EST 12/02/2022 7:41 EST us Carlota Jin MD HEMATOLOGY & PF4 ORDERABL ES Final Result [facility] [address] [place] [address] documented in this encounter Visit Diagnoses Diagnosis Encounter for immunization- Primary Need for other specified prophylactic vaccination against single bacterial disease ESRD (end stage renal disease) ([facility]) End stage renal disease documented in this encounter Administered Medications Inactive Administered Medications - up to 3 most recent administrations Medication Order MAR Action Action Date Dose Rate Site epoetin ken (EPOGEN) 20,000 unit/2 mL injection 500 Units 500 Units, intravenous, ONCE IN DIALYSIS, 1 dose, On Wed12/02/22 at 0730, Routine, DialysisIndications:Encounter for immunization,ESRD (end stage renal disease) ([facility]) Given 12/02/2022 8:22 EST 500 Units heparin injection 9,000 Units 9,000 Units, intravenous, ONCE IN DIALYSIS, 1 dose, On Wed12/02/22 at 0730, Routine, Dialysis, Now x1 bolus 4500 units to be given at the beginning of dialysis 1500 units/hour to be given over the course of dialysis (9000 units total). Stop 1 hour prior to end of treatment. To be administered per Policy [id number].Indications:Encounter for immunization,ESRD (end stage renal disease) ([facility]) Given 12/02/2022 7:17 EST 9,000 Units documented in this encounter Discontinued Medications Medication Sig Discontinue Reason Start Date End Da te sevelamer hydrochloride (RENAGEL) 800 mg tablet Take 1,600 mg by mouth 3 times daily. Reorder 12/02/2022 documented as of this encounter Orders Dialysis Count Last Ordered Date First Orde red Date HEMODIALYSIS 1 12/02/2022 documented in this encounter Care Teams Technical Photographer Relationship Specialty Start Date End Date Adeola Villegas APRN [address] [place] [address] PCP - General 10/12/16 07/06/23 documented as of this encounter
--- OUTSIDE RECORDS SUMMARY | 2024-12-05 12:31 | XMS_ITS | Encounter Summary ---
Author Organization [facility] Address [address] [place] [address] Care Team Providers Care Gold Layer Name Role Phone Adeola Villegas MONA Primary Care Provider [phone] Encounter Details Date Type Department Care Team (Late st Contact Info) Description 12/04/2022 Documentation Visit [facility] [address] [place], [place] [address] Melissa Crespo, RN Social History Tobacco Use Types Packs/Day Years Used Date Smoking Tobacco: Every Day Cigarettes Smokeless Tobacco: Never Sex and Gender Information Value Date Recorded Sex Assigned at Not on file Legal Sex Male 18:49 EST Gender Identity Male 07/07/2023 14:11 EDT Sexual Orientation Not on file documented as of this encounter Progress Notes * Melissa Crespo, RN - 12/04/2022 1714 EST 12/04/22 17:15 [facility] DIAL[facility] MEDICATION RECONCILIATION Medication review of home medications (prescriptions, umob-yoo-nlhlnjy, herbals, vitamin/mineral/dietary (nutritional) supplements, medical marijuana, and [...] Description 12/06/2024 6:45 EST Treatment [facility] [address] [place], [place] [phone] Carlota Jin MD [address] [phone] 12/08/2024 6:45 EST Treatment [facility] [address] [place], [place] [id number] Carlota Jin MD [address] [phone] 12/11/2024 6:45 EST Treatment [facility] [address] [place], [place] [phone] Carlota Jin MD [address] [phone] 12/13/2024 6:45 EST Treatment [facility] [address] [place], [place] [phone] Carlota Jin MD [address] [phone] 12/15/2024 6:45 EST Treatment [facility] [place] [address] [place], [place] [phone] Carlota Jin MD 1 [facility] 2 [place] [phone] 12/18/2024 6:45 EST Treatment [facility] [place] [address] [place], [place] [phone] Carlota Jin MD 1 [facility], [facility] 2 [place] [phone] 12/20/2024 6:45 EST Treatment [facility] [place] [address] [place] [address] Carlota Jin MD 1 [facility], [facility] 2 [place] [phone] 12/22/2024 6:45 EST Treatment [facility] [place] [address] [place], [place] [phone] Carlota Jin MD 1 [facility], [facility] 2 [place] [phone] 12/25/2024 6:45 EST Treatment [facility] [place] [address] [place], [place] [id number] Carlota Jin MD 1 [facility], [facility] 2 [place] [phone] 12/27/2024 6:45 EST Treatment [facility] [place] [address] [place], [place] [address] Carlota Jin MD 1 [facility], [facility] 2 [place] [phone] 12/29/2024 6:45 EST Treatment [facility] [place] [address] [place], [place] [id number] Carlota Jin MD 1 [facility], [facility] 2 [place] [phone] 01/01/2025 6:45 EDT Treatment [facility] [place] [address] [place], [place] [phone] Carlota Jin MD 1 [facility], [facility] 2 [place] [phone] 01/03/2025 6:45 EDT Treatment [facility] [place] [address] [place], [place] [id number] Carlota Jin MD 1 [facility], [facility] 2 [place] [phone] 01/05/2025 6:45 EDT Treatment [facility] [place] [address] [place], [place] [id number] Carlota Jin MD 1 [facility], [facility] 2 [place] [phone] 01/08/2025 6:45 EDT Treatment [facility] [place] [address] [place], [place] [phone] Carlota Jin MD 1 [facility], [facility] 2 [place] [phone] 01/10/2025 6:45 EDT Treatment [facility] [place] [address] [place], [place] [id number] Carlota Jin MD 1 [facility], [facility] 2 [place] [phone] 01/12/2025 6:45 EDT Treatment [facility] [place] [address] [place], [place] [id number] Carlota Jin MD 1 [facility], [facility] 2 [place] [phone] 01/15/2025 6:45 EDT Treatment [facility] [place] [address] [place], [place] [id number] Carlota Jin MD 1 [facility], [facility] 2 [place] [phone] 01/17/2025 6:45 EDT Treatment [facility] [place] [address] [place], [place] [id number] Carlota Jin MD 1 [facility], [facility] 2 [place] [phone] 01/19/2025 6:45 EDT Treatment [facility] [address] [place], [place] [phone] Carlota Jin MD 1 [facility], [facility] 2 [place] [phone] 01/22/2025 6:45 EDT Treatment [facility] [place] [address] [place], [place] [id number] Carlota Jin MD 1 [facility], [facility] 2 [place] [phone] 01/24/2025 6:45 EDT Treatment [facility] [place] [address] [place], [place] [id number] Carlota Jin MD [address] [place] [address], [address] [phone] 01/26/2025 6:45 EDT Treatment [facility] [place] [address] [place], [place] [id number] Carlota Jin MD [address] [place] [address], [address] [phone] 01/29/2025 6:45 EDT Treatment [facility] [place] [address] [place], [place] [id number] Carlota Jin MD 1 [facility], [facility] 2 [place] [phone] 01/31/2025 6:45 EDT Treatment [facility] [place] [address] [place], [place] [phone] Carlota Jin MD 1 [facility], [facility] 2 [place] [phone] 02/02/2025 6:45 EDT Treatment [facility] [place] [address] [place], [place] [id number] Carlota Jin MD 1 [facility], [facility] 2 [place] [phone] 02/05/2025 6:45 EDT Treatment [facility] [place] [address] [place] [address] Carlota Jin MD 1 [facility], [facility] 2 [place] [phone] 02/07/2025 6:45 EDT Treatment [facility] [place] [address] [place], [place] [address] Carlota Jin MD 1 [facility], [facility] 2 [place] [phone] 02/09/2025 6:45 EDT Treatment [facility] [place] [address] [place] [address] Carlota Jin MD 1 [facility], [facility] 2 [place] [phone] 02/12/2025 6:45 EDT Treatment [facility] [place] [address] [place] [address] Carlota Jin MD 1 [facility], [facility] 2 [place] [phone] 02/14/2025 6:45 EDT Treatment [facility] [place] [address] [place], [place] [id number] Carlota Jin MD 1 [facility], [facility] 2 [place] [phone] 02/16/2025 6:45 EDT Treatment [facility] [place] [address] [place], [place] [id number] Carlota Jin MD [address] [place] [address], [facility] 2 [place] [phone] 02/19/2025 6:45 EDT Treatment [facility] [place] [address] [place], [place] [id number] Carlota Jin MD [address] [place] [address], [facility] 2 [place] [phone] 02/21/2025 6:45 EDT Treatment [facility] [address] [place], [place] [phone] Carlota Jin MD [address] [place] [address], [facility] 2 [place] [phone] documented as of this encounter Visit Diagnoses Not on filedocumented in this encounter Care Teams Gold Layer Relationship Specialty Start Date End Date Adeola Villgeas APRN [address] [facility] 1 [place], [place] [address] PCP - General 10/12/16 07/06/23 documented as of this encounter
--- OUTSIDE RECORDS SUMMARY | 2024-12-05 12:31 | XMS_ITS | Encounter Summary ---
Author Organization [facility] Address [address] [place] [address] Care Team Providers Care Caustic Strength Inspector Name Role Phone Adeola Villegas APRN Primary Care Provider [phone] Encounter Details Date Type Department Care Team (Late st Contact Info) Description 12/01/[address] [facility] [address] [place], [place] [address] Shelley Eden, RD [address] [place] [address] Social History Tobacco Use Types Packs/Day Years [...] 6:[address] [facility] [address] [place], [place] [address] Carlota Jin MD [address] [place] [address] [phone] 12/08/2024 6:[address] [facility] [address] [place] [id number] Carlota Jin MD [address] [place], [place] [address], [place] [phone] 12/11/2024 6:[address] [facility] [place] [address] [place], [place] [id number] Carlota Jin MD 1 [facility] [address] [place] [phone] 12/13/2024 6:[address] [facility] [address] [place], [place] [id number] Carlota Jin MD 1 [facility], [facility] [address] [place] [phone] 12/15/2024 6:[address] [facility] [address] [place], [place] [id number] Carlota Jin MD 1 [facility], [facility] [address] [place] [phone] 12/18/2024 6:45 EST [facility] [address] [place] [address] Carlota Jin MD 1 [facility], [facility] [address] [place] [phone] 12/20/2024 6:[address] [facility] [address] [place], [place] [id number] Carlota Jin MD 1 [facility], [facility] [address] [place] [phone] 12/22/2024 6:[address] [facility] [place] [address] [place], [place] [address] Carlota Jin MD 1 [facility], [facility] [address] [place] [phone] 12/25/2024 6:[address] [facility] [place] [address] [place], [place] [id number] Carlota Jin MD 1 [facility], [facility] [address] [place] [phone] 12/27/2024 6:[address] [facility] [place] [address] [place], [place] [id number] Carlota Jin MD 1 [facility], [facility] [address] [place] [phone] 12/29/2024 6:[address] [facility] [place] [address] [place], [place] [id number] Carlota Jin MD 1 [facility], [facility] [address] [place] [phone] 01/01/2025 6:[address] [facility] [place] [address] [place], [place] [id number] Carlota Jin MD 1 [facility], [facility] [address] [place] [phone] 01/03/2025 6:[address] [facility] [place] [address] [place], [place] [id number] Carlota Jin MD 1 [facility] [address] [place] [phone] 01/05/2025 6:[address] [facility] [place] [address] [place], [place] [address] Carlota Jin MD 1 [facility], [facility] [address] [place] [phone] 01/08/2025 6:[address] [facility] [place] [address] [place], [place] [id number] Carlota Jin MD 1 [facility], [facility] [address] [place] [phone] 01/10/2025 6:[address] [facility] [place] [address] [place], [place] [id number] Carlota Jin MD 1 [facility], [facility] [address] [place] [phone] 01/12/2025 6:[address] [facility] [place] [address] [place], [place] [id number] Carlota Jin MD 1 [facility], [facility] [address] [place] [phone] 01/15/2025 6:[address] [facility] [address] [place], [place] [id number] Carlota Jin MD 1 [facility], [facility] [address] [place] [phone] 01/17/2025 6:[address] [facility] [place] [address] [place], [place] [id number] Carlota Jin MD 1 [facility], [facility] [address] [place] [phone] 01/19/2025 6:[address] [facility] [place] [address] [place], [place] [id number] Carlota Jin MD 1 [facility], [address] [phone] 01/22/2025 6:[address] [facility] [place] [address] [place], [place] [id number] Carlota Jin MD 1 [facility], [address] [phone] 01/24/2025 6:[address] [facility] [place] [address] [place], [place] [id number] Carlota Jin MD 1 [facility], [facility] [address] [place] [phone] 01/26/2025 6:[address] [facility] [place] [address] [place], [place] [id number] Carlota Jin MD 1 [facility], [facility] [address] [place] [phone] 01/29/2025 6:[address] [facility] [place] [address] [place], [place] [id number] Carlota Jin MD 1 [facility], [facility] [address] [place] [phone] 01/31/2025 6:[address] [facility] [place] [address] [place], [place] [id number] Carlota Jin MD 1 [facility], [facility] [address] [place] [phone] 02/02/2025 6:[address] [facility] [place] [address] [place] [address] Carlota Jin MD 1 [facility], [facility] [address] [place] [phone] 02/05/2025 6:[address] [facility] [place] [address] [place] [address] Carlota Jin MD 1 [facility], [facility] [address] [place] [phone] 02/07/2025 6:[address] [facility] [place] [address] [place] [address] Carlota Jin MD 1 [facility], [facility] [address] [place] [phone] 02/09/2025 6:[address] [facility] [place] [address] [place], [place] [id number] Carlota Jin MD 1 [facility], [facility] [address] [place] [phone] 02/12/2025 6:[address] [facility] [place] [address] [place], [place] [id number] Carlota Jin MD [address] [phone] 02/14/2025 6:[address] [facility] [place] [address] [place], [place] [id number] Carlota Jin MD [address] [phone] 02/16/2025 6:[address] [facility] [place] [address] [place], [place] [address] Carlota Jin MD [address] [place] [address] [phone] 02/19/2025 6:[address] [facility] [place] [address] [place], [place] [id number] Carlota Jin MD [address] [place] [address] [phone] 02/21/2025 6:[address] [facility] [place] [address] [place], [place] [id number] Carlota Jin MD [address] [phone] documented as of this encounter Visit Diagnoses Not on filedocumented in this encounter Care Teams Caustic Strength Inspector Relationship Specialty Start Date End Date Adeola Villegas APRN [address] [place] [address] PCP - General 10/12/16 07/06/23 documented as of this encounter
--- OUTSIDE RECORDS SUMMARY | 2024-12-05 12:31 | XMS_ITS | Encounter Summary ---
Author Organization [facility] Address [address] [place] [address] Care Team Providers Care Security Control Center Operator Name Role Phone Adeola Villegas APRN Primary Care Provider [phone] Encounter Details Date Type Department Care Team (Late st Contact Info) Description 11/24/2022 Orders Only [place] [address] [place], [place] [phone] Yoanna Degroot, VIDYA Social History Tobacco Use [...] Contact Info) Description 12/06/2024 6:45 EST Treatment [place] [address] [place] [id number] Carlota Jin MD 1 [facility], [facility] 2 [place] [phone] 12/08/2024 6:45 EST Treatment [place] [facility] [address] [place] [id number] Carlota Jin MD [address] [place] [address], [facility] 2 [place] [phone] 12/11/2024 6:45 EST Treatment [facility] [place] [address] [place], [place] [id number] Carlota Jin MD 1 [facility], [facility] [address] [place] [phone] 12/13/2024 6:45 EST Treatment [facility] [place] [address] [place] [address] Carlota Jin MD 1 [facility], [facility] [address] [place] [phone] 12/15/2024 6:45 EST Treatment [facility] [place] [address] [place], [place] [address] [phone] Carlota Jin MD 1 [facility], [facility] [address] [place] [phone] 12/18/2024 6:45 EST Treatment [facility] [place] [address] [place] [address] Carlota Jin MD 1 [facility], [facility] [address] [place] [phone] 12/20/2024 6:45 EST Treatment [facility] [place] [address] [place], [place] [id number] Carlota Jin MD 1 [facility], [facility] [address] [place] [phone] 12/22/2024 6:45 EST Treatment [facility] [place] [address] [place], [place] [address] Carlota Jin MD 1 [facility], [facility] 2 [place] [phone] 12/25/2024 6:45 EST Treatment [facility] [place] [address] [place], [place] [address] [phone] Carlota Jin MD 1 [facility], [address] [phone] 12/27/2024 6:45 EST Treatment [facility] [place] [address] [place], [place] [id number] Carlota Jin MD 1 [facility], [address] [phone] 12/29/2024 6:45 EST Treatment [facility] [place] [address] [place], [place] [id number] Carlota Jin MD 1 [facility], [address] [phone] 01/01/2025 6:45 EDT Treatment [facility] [place] [address] [place], [place] [id number] Carlota Jin MD 1 [facility], [address] [phone] 01/03/2025 6:45 EDT Treatment [facility] [place] [address] [place], [place] [id number] Carlota Jin MD 1 [facility], [facility] 2 [place] [phone] 01/05/2025 6:45 EDT Treatment [facility] [place] [address] [place], [place] [id number] Carlota Jin MD 1 [facility], [facility] 2 [place] [phone] 01/08/2025 6:45 EDT Treatment [facility] [place] [address] [place], [place] [id number] Carlota Jin MD 1 [facility], [facility] 2 [place] [phone] 01/10/2025 6:45 EDT Treatment [facility] [place] [address] [place] [address] Carlota Jin MD [address] [place] [address], [facility] 2 [place] [phone] 01/12/2025 6:45 EDT Treatment [facility] [place] [address] [place], [place] [id number] Carlota Jin MD 1 [facility], [facility] 2 [place] [phone] 01/15/2025 6:45 EDT Treatment [facility] [place] [address] [place], [place] [id number] Carlota Jin MD [address] [place] [address], [facility] 2 [place] [phone] 01/17/2025 6:45 EDT Treatment [facility] [place] [address] [place], [place] [address] Carlota Jin MD 1 [facility], [facility] 2 [place] [phone] 01/19/2025 6:45 EDT Treatment [facility] [place] [address] [place], [place] [id number] Carlota Jin MD 1 [facility], [facility] 2 [place] [phone] 01/22/2025 6:45 EDT Treatment [facility] [place] [address] [place], [place] [id number] Carlota Jin MD 1 [facility], [facility] 2 [place] [phone] 01/24/2025 6:45 EDT Treatment [facility] [place] [address] [place], [place] [id number] Carlota Jin MD 1 [facility], [address] [phone] 01/26/2025 6:45 EDT Treatment [facility] [place] [address] [place], [place] [id number] Carlota Jin MD 1 [facility], [facility] 2 [place] [phone] 01/29/2025 6:45 EDT Treatment [facility] [place] [address] [place], [place] [id number] Carlota Jin MD 1 [facility] 2 [place] [phone] 01/31/2025 6:45 EDT Treatment [facility] [place] [address] [place], [place] [address] Carlota Jin MD 1 [facility], [facility] 2 [place] [phone] 02/02/2025 6:45 EDT Treatment [facility] [place] [address] [place], [place] [id number] Carlota Jin MD 1 [facility], [facility] 2 [place] [phone] 02/05/2025 6:45 EDT Treatment [facility] [place] [address] [place], [place] [id number] Carlota Jin MD 1 [facility], [facility] 2 [place] [phone] 02/07/2025 6:45 EDT Treatment [facility] [place] [address] [place] [address] Carlota Jin MD 1 [facility], [facility] 2 [place] [phone] 02/09/2025 6:45 EDT [facility] [address] [place], [place] [id number] Carlota Jin MD 1 [facility], [facility] 2 [place] [phone] 02/12/2025 6:45 EDT Treatment [facility] [place] [address] [place], [place] [id number] Carlota Jin MD [address] [phone] 02/14/2025 6:45 EDT Treatment [facility] [place] [address] [place], [place] [id number] Carlota Jin MD [address] [place] [address] [phone] 02/16/2025 6:45 EDT Treatment [facility] [place] [address] [place], [place] [id number] Carlota Jin MD [address] [place] [address] [phone] 02/19/2025 6:45 EDT Treatment [facility] [place] [address] [place], [place] [id number] Carlota Jin MD [address] [place] [address] [phone] 02/21/2025 6:45 EDT Treatment [facility] [place] [address] [place], [place] [id number] Carlota Jin MD [address] [place] [address] [phone] documented as of this encounter Visit Diagnoses Not on filedocumented in this encounter Care Teams Security Control Center Operator Relationship Specialty Start Date End Date Adeola Villegas APRN [address] [place] [address] PCP - General 10/12/16 07/06/23 documented as of this encounter
--- OUTSIDE RECORDS SUMMARY | 2024-12-05 12:31 | XMS_ITS | Encounter Summary ---
Author Organization [facility] Address [address] [place] [address] Care Team Providers Care Real Estate Rep Name Role Phone Adeola Villegas APRN Primary Care Provider [phone] Encounter Details Date Type Department Care Team (Late st Contact Info) Description 11/25/2022 7:15 EST Treatment [facility] [address] [place], [place] [id number] Carlota Jin MD 1 [facility], Level [address] [place] [address] ESRD (end stage renal disease) ([facility]) (Primary Dx) Social History Tobacco Use Types [...] - Temperature - - Respiratory Rate 16 11/25/2022 0638 EST Oxygen Saturation - - Inhaled Oxygen Concentration - - Weight 90.9 kg (200 lb 6.4 oz) 11/25/[address] Height - - Body Mass Index - - documented in this encounter Miscellaneous Notes * Flowsheet Note - Marcela Cox RN - 11/25/2022 1123 EST 02/01/23 1053 Post-Hemodialysis Assessment Total Blood Processed (L) 90.45 Liters Dialyzer Clearance Lightly streaked Treatment UFR (ml:kg:hr) 8.14 ml:kg:hr Critline refill Not done Fluid Removed (L) 3 L Post-Dialysis Scale Weight 88 kg (194 lb 0.1 oz) Wheelchair Weight 0 kg (0 lb) Prosthesis Weight 0 kg (0 lb) Post-Treatment Weight (kg) 88 Treatment Weight Change (kg) 2.9 kg Day Target Weight (kg) 88.4 Post Sitting/Lying BP 156/81 Post Sitting/Lying pulse 64 Post Standing BP 123/68 Post Standing Pulse 70 Temp 36.4 ??C (97.5 ??F) Temp src [...] Contact Info) Description 12/06/2024 6:45 EST Treatment [facility] [address] [place], [place] [id number] Carlota Jin MD [address] [place] [address], [facility] [address] [place] [address] 12/08/2024 6:45 EST Treatment [facility] [address] [place], [place] [id number] Carlota Jin MD [address] [place] [address], [facility] [address] [place] [address] 12/11/2024 6:45 EST Treatment [facility] [address] [place], [place] [id number] Carlota Jin MD 1 [facility], [facility] 2 [place] [phone] 12/13/2024 6:45 EST Treatment [facility] [place] [address] [place], [place] [id number] Carlota Jin MD 1 [facility], [facility] 2 [place] [phone] 12/15/2024 6:45 EST Treatment [facility] [place] [address] [place], [place] [id number] Carlota Jin MD 1 [facility], [facility] 2 [place] [phone] 12/18/2024 6:45 EST Treatment [facility] [place] [address] [place] [address] Carlota Jin MD 1 [facility], [facility] 2 [place] [phone] 12/20/2024 6:45 EST Treatment [facility] [place] [address] [place], [place] [id number] Carlota Jin MD 1 [facility], [facility] 2 [place] [phone] 12/22/2024 6:45 EST Treatment [facility] [place] [address] [place], [place] [id number] Carlota Jin MD 1 [facility], [facility] 2 [place] [phone] 12/25/2024 6:45 EST Treatment [facility] [place] [address] [place], [place] [id number] Carlota Jin MD 1 [facility], [facility] 2 [place] [phone] 12/27/2024 6:45 EST Treatment [facility] [place] [address] [place], [place] [id number] Carlota Jin MD 1 [facility], [facility] 2 [place] [phone] 12/29/2024 6:45 EST Treatment [facility] [place] [address] [place] [address] Carlota Jin MD 1 [facility], [facility] 2 [place] [phone] 01/01/2025 6:45 EDT Treatment [facility] [place] [address] [place], [place] [id number] Carlota Jin MD 1 [facility], [facility] 2 [place] [phone] 01/03/2025 6:45 EDT Treatment [facility] [place] [address] [place], [place] [id number] Carlota Jin MD 1 [facility], [facility] 2 [place] [phone] 01/05/2025 6:45 EDT Treatment [facility] [address] [place], [place] [id number] Carlota Jin MD 1 [facility], [facility] 2 [place] [phone] 01/08/2025 6:45 EDT Treatment [facility] [place] [address] [place], [place] [id number] Carlota Jin MD 1 [facility], [facility] 2 [place] [phone] 01/10/2025 6:45 EDT Treatment [facility] [place] [address] [place], [place] [id number] Carlota Jin MD 1 [facility], [facility] 2 [place] [phone] 01/12/2025 6:45 EDT Treatment [facility] [place] [address] [place], [place] [id number] Carlota Jin MD 1 [facility], [facility] 2 [place] [phone] 01/15/2025 6:45 EDT Treatment [facility] [place] [address] [place], [place] [id number] Carlota Jin MD 1 [facility], [facility] 2 [place] [phone] 01/17/2025 6:45 EDT Treatment [facility] [place] [address] [place], [place] [id number] Carlota Jin MD 1 [facility], [facility] [address] [place] [phone] 01/19/2025 6:45 EDT Treatment [facility] [place] [address] [place], [place] [id number] Carlota Jin MD 1 [facility], [facility] 2 [place] [phone] 01/22/2025 6:45 EDT Treatment [facility] [place] [address] [place], [place] [id number] Carlota Jin MD 1 [facility], [facility] 2 [place] [phone] 01/24/2025 6:45 EDT Treatment [facility] [place] [address] [place], [place] [id number] Carlota Jin MD 1 [facility], [facility] 2 [place] [phone] 01/26/2025 6:45 EDT Treatment [facility] [place] [address] [place], [place] [id number] Carlota Jin MD 1 [facility], [facility] 2 [place] [phone] 01/29/2025 6:45 EDT Treatment [facility] [place] [address] [place], [place] [id number] Carlota Jin MD 1 [facility], [facility] 2 [place] [phone] 01/31/2025 6:45 EDT Treatment [facility] [place] [address] [place], [place] [address] Carlota Jin MD 1 [facility], [facility] 2 [place] [phone] 02/02/2025 6:45 EDT Treatment [facility] [place] [address] [place], [place] [address] [phone] Carlota Jin MD 1 [facility], [facility] 2 [place] [phone] 02/05/2025 6:45 EDT Treatment [facility] [place] [address] [place], [place] [address] Carlota Jin MD 1 [facility], [address] [phone] 02/07/2025 6:45 EDT Treatment [facility] [place] [address] [place], [place] [id number] Carlota Jin MD 1 [facility], [address] [phone] 02/09/2025 6:45 EDT Treatment [facility] [place] [address] [place], [place] [id number] Carlota Jin MD 1 [facility], [address] [phone] 02/12/2025 6:45 EDT Treatment [facility] [place] [address] [place], [place] [id number] Carlota Jin MD 1 [facility], [facility] 2 [place] [phone] 02/14/2025 6:45 EDT Treatment [facility] [place] [address] [place], [place] [id number] Carlota Jin MD 1 [facility], [facility] [address] [place] [phone] 02/16/2025 6:45 EDT Treatment [facility] [place] [address] [place], [place] [id number] Carlota Jin MD 1 [facility], [address] [phone] 02/19/2025 6:45 EDT Treatment [facility] [place] [address] [place], [place] [id number] Carlota Jin MD 1 [facility], [address] [phone] 02/21/2025 6:45 EDT Treatment [facility] [place] [address] [place], [place] [id number] Carlota Jin MD 1 [facility], [facility] [address] [place] [phone] documented as of this encounter Procedures Procedure Name Priority Date/Time Associated Diagnosis Comments COMPLETE BLOOD COUNT Routine 11/25/2022 6:40 EST ESRD (end stage renal disease) ([facility]) HEMODIALYSIS Routine 11/25/2022 6:38 EST ESRD (end stage renal disease) ([facility]) documented in this encounter Results * (ABNORMAL) COMPLETE BLOOD COUNT (11/25/2022 6:40 EST) WBC 6.00 4.00 - 10.40 K/cmm 11/25/2022 22:01 [facility] RBC 3.32(L) 4.36 - 5.78 M/cmm 11/25/2022 22:01 [facility] Hemoglobin 10.7(L) 13.8 - 17.3 gm/dL 11/25/2022 22:01 [facility] HCT 33.3(L) 39.5 - 50.2 % 11/25/2022 22:01 [facility] MCV 100(H) 81 - 95 fl 11/25/2022 22:01 [facility] MCH 32.2 27.6 - 33.0 pg 11/25/2022 22:01 [facility] MCHC 32.1(L) 32.8 - 36.4 gm/dL 11/25/2022 22:01 [facility] RDW-CV 13.1 <14.2 % 11/25/2022 22:01 [facility] RDW-SD 47.8(H) <46.0 fl 11/25/2022 22:01 [facility] PLT 246 141 - 377 K/cmm 11/25/2022 22:01 [facility] MPV 11.6 9.5 - 12.7 fl 11/25/2022 22:01 [facility] Blood VENOUS BLOOD / Unknown Venipuncture / Unknown 11/25/2022 6:40 EST 11/25/2022 6:40 EST us Carlota Jin MD HEMATOLOGY & PF4 ORDERABL ES Final Result [facility] [address] [place] [address] documented in this encounter Visit Diagnoses Diagnosis ESRD (end stage renal disease) ([facility])- Primary End stage renal disease documented in this encounter Administered Medications Inactive Administered Medications - up to 3 most recent administrations Medication Order MAR Action Action Date Dose Rate Site heparin injection 9,000 Units 9,000 Units, intravenous, ONCE IN DIALYSIS, 1 dose, On 11/25/22 at 0700, Routine, Dialysis, Now x1 bolus 4500 units to be given at the beginning of dialysis 1500 units/hour to be given over the course of dialysis (9000 units total). Stop 1 hour prior to end of treatment. To be administered per Policy [id number].Indications:ESRD (end stage renal disease) ([facility]) Given 11/25/2022 6:50 EST 9,000 Units documented in this encounter Orders Medications Ordered That Davide ht Not Have Been Administered Count Last Ordered Date First Ordered Date heparin injection 9,000 Units 1 11/25/2022 Dialysis Count Last Ordered Date First Orde red Date HEMODIALYSIS 1 11/25/2022 documented in this encounter Care Teams Real Estate Rep Relationship Specialty Start Date End Date Adeola Villegas APRN [address] [place] [address] PCP - General 10/12/16 07/06/23 documented as of this encounter
--- OUTSIDE RECORDS SUMMARY | 2024-12-05 12:31 | XMS_ITS | Encounter Summary ---
Author Organization [facility] Address [address] [place] [address] Care Team Providers Care Flight Dispatcher Name Role Phone Adeola Villegas APRN Primary Care Provider [phone] Encounter Details Date Type Department Care Team (Late st Contact Info) Description 12/07/2022 7:15 EST Treatment [facility] [address] [place], [place] [phone] Carlota Jin MD 1 [facility], Level [address] [place] [address] Encounter for immunization (Primary Dx); ESRD (end stage renal disease) ([facility]) Social History Tobacco Use Types [...] - Temperature - - Respiratory Rate 16 12/07/2022 0652 EST Oxygen Saturation - - Inhaled Oxygen Concentration - - Weight 92.1 kg (203 lb 0.7 oz) 12/07/[address] Height - - Body Mass Index - - documented in this encounter Miscellaneous Notes * Flowsheet Note - Marcela Cox RN - 12/07/2022 1148 EST 12/07/22 1106 Post-Hemodialysis Assessment Total Blood Processed (L) 90.71 Liters Dialyzer Clearance Lightly streaked Treatment UFR (ml:kg:hr) 10.71 ml:kg:hr Critline refill Negative Fluid Removed (L) 4 L Post-Dialysis Scale Weight 88.3 kg (194 lb 10.7 oz) Wheelchair Weight 0 kg (0 lb) Prosthesis Weight 0 kg (0 lb) Post-Treatment Weight (kg) 88.3 Treatment Weight Change (kg) 3.8 kg Day Target Weight (kg) 88.6 Post Sitting/Lying BP 154/76 Post Sitting/Lying pulse 66 Post Standing BP 153/68 Post Standing Pulse 66 Temp 36.2 ??C [...] 6:45 EST Treatment [facility] [address] [place], [place] [phone] Carlota Jin MD [address] [place] [address], [facility] 2 [place] [address] 12/08/2024 6:45 EST Treatment [facility] [address] [place] [address] Carlota Jin MD [address] [place] [address], [facility] [address] [place] [address] 12/11/2024 6:45 EST Treatment [facility] [address] [place] [id number] Carlota Jin MD 1 [facility], [facility] 2 [place] [phone] 12/13/2024 6:45 EST Treatment [facility] [place] [address] [place], [place] [id number] Carlota Jin MD [address] [facility], [facility] 2 [place] [phone] 12/15/2024 6:45 EST Treatment [facility] [place] [address] [place], [place] [id number] Carlota Jin MD 1 [facility], [facility] 2 [place] [phone] 12/18/2024 6:45 EST Treatment [facility] [place] [address] [place], [place] [id number] Carlota Jin MD 1 [facility], [facility] 2 [place] [phone] 12/20/2024 6:45 EST Treatment [facility] [place] [address] [place], [place] [id number] Carlota Jin MD [address] [facility], [facility] 2 [place] [phone] 12/22/2024 6:45 EST Treatment [facility] [place] [address] [place], [place] [id number] Carlota Jin MD [address] [facility], [facility] [address] [place] [phone] 12/25/2024 6:45 EST Treatment [facility] [place] [address] [place], [place] [id number] Carlota Jin MD 1 [facility], [facility] [address] [place] [phone] 12/27/2024 6:45 EST Treatment [facility] [place] [address] [place], [place] [id number] Carlota Jin MD 1 [facility], [facility] [address] [place] [phone] 12/29/2024 6:45 EST Treatment [facility] [place] [address] [place], [place] [id number] Carlota Jin MD 1 [facility], [facility] 2 [place] [phone] 01/01/2025 6:45 EDT Treatment [facility] [place] [address] [place], [place] [id number] Carlota Jin MD 1 [facility], [facility] [address] [place] [phone] 01/03/2025 6:45 EDT Treatment [facility] [place] [address] [place], [place] [id number] Carlota Jin MD 1 [facility], [facility] [address] [place] [phone] 01/05/2025 6:45 EDT Treatment [facility] [place] [address] [place], [place] [id number] Carlota Jin MD 1 [facility], [facility] [address] [place] [phone] 01/08/2025 6:45 EDT Treatment [facility] [place] [address] [place] [address] Carlota Jin MD [address] [facility], [facility] 2 [place] [phone] 01/10/2025 6:45 EDT Treatment [facility] [place] [address] [place] [address] Carlota Jin MD 1 [facility], [facility] [address] [place] [phone] 01/12/2025 6:45 EDT Treatment [facility] [place] [address] [place], [place] [id number] Carlota Jin MD 1 [facility], [facility] [address] [place] [phone] 01/15/2025 6:45 EDT Treatment [facility] [place] [address] [place] [address] Carlota Jin MD 1 [facility], [facility] [address] [place] [phone] 01/17/2025 6:45 EDT Treatment [facility] [place] [address] [place], [place] [id number] Carlota Jin MD [address] [facility], [facility] 2 [place] [phone] 01/19/2025 6:45 EDT Treatment [facility] [place] [address] [place], [place] [id number] Carlota Jin MD 1 [facility], [facility] [address] [place] [phone] 01/22/2025 6:45 EDT Treatment [facility] [place] [address] [place], [place] [id number] Carlota Jin MD 1 [facility], [facility] 2 [place] [phone] 01/24/2025 6:45 EDT Treatment [facility] [address] [place], [place] [id number] Carlota Jin MD 1 [facility], [facility] [address] [place] [phone] 01/26/2025 6:45 EDT Treatment [facility] [address] [place], [place] [address] Carlota Jin MD 1 [facility], [facility] 2 [place] [phone] 01/29/2025 6:45 EDT Treatment [facility] [address] [place], [place] [id number] Carlota Jin MD 1 [facility], [facility] [address] [place] [phone] 01/31/2025 6:45 EDT Treatment [facility] [place] [address] [place], [place] [address] Carlota Jin MD 1 [facility], [facility] 2 [place] [phone] 02/02/2025 6:45 EDT Treatment [facility] [place] [address] [place], [place] [id number] Carlota Jin MD 1 [facility], [address] [phone] 02/05/2025 6:45 EDT Treatment [facility] [place] [address] [place], [place] [id number] Carlota Jin MD 1 [facility], [address] [phone] 02/07/2025 6:45 EDT Treatment [facility] [place] [address] [place], [place] [id number] Carlota Jin MD [address] [phone] 02/09/2025 6:45 EDT Treatment [facility] [place] [address] [place], [place] [id number] Carlota Jin MD [address] [phone] 02/12/2025 6:45 EDT Treatment [facility] [place] [address] [place], [place] [id number] Carlota Jin MD 1 [facility], [facility] 2 [place] [phone] 02/14/2025 6:45 EDT Treatment [facility] [place] [address] [place], [place] [id number] Carlota Jin MD [address] [phone] 02/16/2025 6:45 EDT Treatment [facility] [place] [address] [place], [place] [id number] Carlota Jin MD 1 [facility], [address] [phone] 02/19/2025 6:45 EDT Treatment [facility] [place] [address] [place], [place] [id number] Carlota Jin MD [address] [phone] 02/21/2025 6:45 EDT Treatment [facility] [address] [place], [place] [phone] Carlota Jin MD [address] [phone] documented as of this encounter Procedures Procedure Name Priority Date/Time Associated Diagnosis Comments HEMODIALYSIS Routine 12/07/2022 6:55 EST Encounter for immunization ESRD (end stage renal disease) ([facility]) documented in this encounter Visit Diagnoses Diagnosis Encounter for immunization- Primary Need for other specified prophylactic vaccination against single bacterial disease ESRD (end stage renal disease) ([facility]) End stage renal disease documented in this encounter Administered Medications Inactive Administered Medications - up to 3 most recent administrations Medication Order MAR Action Action Date Dose Rate Site epoetin ken (EPOGEN) 20,000 unit/2 mL injection 500 Units 500 Units, intravenous, ONCE IN DIALYSIS, 1 dose, On Wed12/07/22 at 0715, Routine, DialysisIndications:Encounter for immunization,ESRD (end stage renal disease) ([facility]) Given 12/07/2022 7:16 EST 500 Units heparin injection 9,000 Units 9,000 Units, intravenous, ONCE IN DIALYSIS, 1 dose, On Wed12/07/22 at 0715, Routine, Dialysis, Now x1 bolus 4500 units to be given at the beginning of dialysis 1500 units/hour to be given over the course of dialysis (9000 units total). Stop 1 hour prior to end of treatment. To be administered per Policy [id number].Indications:Encounter for immunization,ESRD (end stage renal disease) ([facility]) Given 12/07/2022 7:05 EST 9,000 Units documented in this encounter Orders Dialysis Count Last Ordered Date First Orde red Date HEMODIALYSIS 1 12/07/2022 documented in this encounter Care Teams Flight Dispatcher Relationship Specialty Start Date End Date Adeola Villegas APRN [address] [place] [address] PCP - General 10/12/16 07/06/23 documented as of this encounter
--- OUTSIDE RECORDS SUMMARY | 2024-12-05 12:31 | XMS_ITS | Encounter Summary ---
Author Organization [facility] Address [address] [place] [address] Care Team Providers Care Model Builder Display Name Role Phone Adeola Villegas APRN Primary Care Provider [phone] Encounter Details Date Type Department Care Team (Late st Contact Info) Description 11/24/2022 Orders Only [facility] [address] [place], [place] [id number] Yoanna Degroot, VIDYA Social History Tobacco Use [...] Contact Info) Description 12/06/2024 6:45 EST Treatment [facility] [address] [place] [id number] Carlota Jin MD 1 [facility], [facility] [address] [place] [address] 12/08/2024 6:45 EST Treatment [facility] [address] [place] [id number] Carlota Jin MD [address] [place] [address], [facility] [address] [place] [phone] 12/11/2024 6:45 EST Treatment [facility] [place] [address] [place], [place] [id number] Carlota Jin MD 1 [facility], Level [address] [place] [phone] 12/13/2024 6:45 EST Treatment [facility] [place] [address] [place] [address] Carlota Jin MD 1 [facility], [facility] [address] [place] [phone] 12/15/2024 6:45 EST Treatment [facility] [place] [address] [place], [place] [address] [phone] Carlota Jin MD 1 [facility], [facility] [address] [place] [phone] 12/18/2024 6:45 EST Treatment [facility] [place] [address] [place] [address] Carlota Jin MD 1 [facility], [facility] [address] [place] [phone] 12/20/2024 6:45 EST Treatment [facility] [place] [address] [place], [place] [id number] Carlota Jin MD 1 [facility], Level [address] [place] [phone] 12/22/2024 6:45 EST Treatment [facility] [place] [address] [place], [place] [address] Carlota Jin MD 1 [facility], [facility] [address] [place] [phone] 12/25/2024 6:45 EST Treatment [facility] [place] [address] [place], [place] [address] [phone] Carlota Jin MD 1 [facility], [address] [phone] 12/27/2024 6:45 EST Treatment [facility] [place] [address] [place], [place] [id number] Carlota Jin MD 1 [facility], [address] [phone] 12/29/2024 6:45 EST Treatment [facility] [place] [address] [place], [place] [id number] Carlota Jin MD 1 [facility], [address] [phone] 01/01/2025 6:45 EDT Treatment [facility] [place] [address] [place], [place] [id number] Carlota Jin MD 1 [facility], [address] [phone] 01/03/2025 6:45 EDT Treatment [facility] [place] [address] [place], [place] [id number] Carlota iJn MD 1 [facility], [facility] 2 [place] [phone] 01/05/2025 6:45 EDT Treatment [facility] [place] [address] [place], [place] [id number] Carlota Jin MD 1 [facility], [facility] 2 [place] [phone] 01/08/2025 6:45 EDT Treatment [facility] [place] [address] [place], [place] [id number] Carlota Jin MD 1 [facility], [facility] 2 [place] [phone] 01/10/2025 6:45 EDT Treatment [facility] [place] [address] [place] [address] Carlota Jin MD [address] [place] [address], [facility] [address] [place] [phone] 01/12/2025 6:45 EDT Treatment [facility] [place] [address] [place], [place] [id number] Carlota Jin MD 1 [facility], [facility] 2 [place] [phone] 01/15/2025 6:45 EDT Treatment [facility] [place] [address] [place], [place] [id number] Carlota Jin MD [address] [place] [address], [facility] [address] [place] [phone] 01/17/2025 6:45 EDT Treatment [facility] [place] [address] [place], [place] [address] Carlota Jin MD 1 [facility], [facility] 2 [place] [phone] 01/19/2025 6:45 EDT Treatment [facility] [place] [address] [place], [place] [id number] Carlota Jin MD 1 [facility], [facility] 2 [place] [phone] 01/22/2025 6:45 EDT Treatment [facility] [place] [address] [place], [place] [id number] Carlota Jin MD 1 [facility], [facility] 2 [place] [phone] 01/24/2025 6:45 EDT Treatment [facility] [place] [address] [place], [place] [id number] Carlota Jin MD 1 [facility], [address] [phone] 01/26/2025 6:45 EDT Treatment [facility] [place] [address] [place], [place] [id number] Carlota Jin MD 1 [facility], [facility] 2 [place] [phone] 01/29/2025 6:45 EDT Treatment [facility] [place] [address] [place], [place] [id number] Carlota Jin MD 1 [facility] 2 [place] [phone] 01/31/2025 6:45 EDT Treatment [facility] [place] [address] [place], [place] [address] Carlota Jin MD 1 [facility], [facility] 2 [place] [phone] 02/02/2025 6:45 EDT Treatment [facility] [place] [address] [place], [place] [id number] Carlota Jin MD 1 [facility], [facility] 2 [place] [phone] 02/05/2025 6:45 EDT Treatment [facility] [place] [address] [place], [place] [id number] Carlota Jin MD 1 [facility], [facility] 2 [place] [phone] 02/07/2025 6:45 EDT Treatment [facility] [place] [address] [place] [address] Carlota Jin MD 1 [facility], [facility] 2 [place] [phone] 02/09/2025 6:45 EDT Treatment [facility] [address] [place], [place] [id number] Carlota Jin MD 1 [facility], [facility] 2 [place] [phone] 02/12/2025 6:45 EDT Treatment [facility] [place] [address] [place], [place] [id number] Carlota Jin MD [address] [phone] 02/14/2025 6:45 EDT Treatment [facility] [place] [address] [place], [place] [id number] Carlota Jin MD [address] [place] [phone] 02/16/2025 6:45 EDT Treatment [facility] [place] [address] [place], [place] [id number] Carlota Jin MD [address] [place] [phone] 02/19/2025 6:45 EDT Treatment [facility] [place] [address] [place], [place] [id number] Carlota Jin MD [address] [place] [phone] 02/21/2025 6:45 EDT Treatment [facility] [place] [address] [place], [place] [id number] Carlota Jin MD [address] [place] [phone] documented as of this encounter Visit Diagnoses Not on filedocumented in this encounter Care Teams Model Builder Display Relationship Specialty Start Date End Date Adeola Villegas APRN [address] [place] [address] PCP - General 10/12/16 07/06/23 documented as of this encounter
--- OUTSIDE RECORDS SUMMARY | 2024-12-05 12:31 | XMS_ITS | Encounter Summary ---
Author Organization [facility] Address [address] [place] [address] Care Team Providers Care Staffing And Scheduling Coordinator Name Role Phone Adeola Villegas APRN Primary Care Provider [phone] Encounter Details Date Type Department Care Team (Late st Contact Info) Description 11/20/2022 7:15 EST Treatment [facility] [address] [place], [place] [id number] Carlota Jin MD 1 [facility], Level [address] [place] [phone] ESRD (end stage renal disease) ([facility]) (Primary Dx) Social History Tobacco Use Types [...] - Temperature - - Respiratory Rate 16 11/20/2022 0658 EST Oxygen Saturation - - Inhaled Oxygen Concentration - - Weight 91.5 kg (201 lb 11.5 oz) 11/20/2022 0658 EST Height - - Body Mass Index - - documented in this encounter Miscellaneous Notes * Flowsheet Note - Melissa Crespo RN - 11/20/2022 1422 EST 11/20/22 1118 Post-Hemodialysis Assessment Total Blood Processed (L) 90.07 Liters Dialyzer Clearance Lightly streaked Treatment UFR (ml:kg:hr) 8.37 ml:kg:hr Critline refill Negative Fluid Removed (L) 3.05 L Post-Dialysis Scale Weight 88.5 kg (195 lb 1.7 oz) Wheelchair Weight 0 kg (0 lb) Prosthesis Weight 0 kg (0 lb) Post-Treatment Weight (kg) 88.5 Treatment Weight Change (kg) 3 kg Day Target Weight (kg) 89 Post Sitting/Lying BP 133/82 Post Sitting/Lying pulse 64 Post Standing BP 133/71 Post Standing Pulse 68 Temp 36 ??C (96.8 ??F) Temp [...] Treatment [facility] [address] [place], [place] [id number] Carlota Jin MD [address] [place] [address], [facility] 2 [place] [phone] 12/08/2024 6:45 EST Treatment [facility] [address] [place] [id number] Carlota Jin MD [address] [place] [address], [facility] 2 [place] [phone] 12/11/2024 6:45 EST Treatment [facility] [address] [place] [id number] Carlota Jin MD 1 [facility] Level [address] [place] [phone] 12/13/2024 6:45 EST Treatment [facility] [place] [address] [place], [place] [id number] Carlota Jin MD 1 [facility], [facility] 2 [place] [phone] 12/15/2024 6:45 EST Treatment [facility] [place] [address] [place], [place] [id number] Carlota Jin MD 1 [facility], [facility] 2 [place] [phone] 12/18/2024 6:45 EST Treatment [facility] [place] [address] [place] [address] Carlota Jin MD 1 [facility], [facility] 2 [place] [phone] 12/20/2024 6:45 EST Treatment [facility] [address] [place] [address] Carlota Jin MD 1 [facility], [facility] 2 [place] [phone] 12/22/2024 6:45 EST Treatment [facility] [place] [address] [place], [place] [id number] Carlota Jin MD 1 [facility], [facility] 2 [place] [phone] 12/25/2024 6:45 EST Treatment [facility] [place] [address] [place], [place] [id number] Carlota Jin MD 1 [facility], [facility] 2 [place] [phone] 12/27/2024 6:45 EST Treatment [facility] [place] [address] [place], [place] [id number] Carlota Jin MD 1 [facility], [facility] 2 [place] [phone] 12/29/2024 6:45 EST Treatment [facility] [place] [address] [place], [place] [id number] Carlota Jin MD 1 [facility], [facility] 2 [place] [phone] 01/01/2025 6:45 EDT Treatment [facility] [place] [address] [place], [place] [id number] Carlota Jni MD 1 [facility], [facility] 2 [place] [phone] 01/03/2025 6:45 EDT Treatment [facility] [place] [address] [place], [place] [id number] Carlota Jin MD 1 [facility], [facility] 2 [place] [phone] 01/05/2025 6:45 EDT Treatment [facility] [place] [address] [place], [place] [id number] Carlota Jin MD 1 [facility], [facility] 2 [place] [phone] 01/08/2025 6:45 EDT Treatment [facility] [place] [address] [place], [place] [id number] Carlota Jin MD 1 [facility], [facility] 2 [place] [phone] 01/10/2025 6:45 EDT Treatment [facility] [place] [address] [place], [place] [id number] Carlota Jin MD 1 [facility], [facility] [address] [place] [phone] 01/12/2025 6:45 EDT Treatment [facility] [place] [address] [place] [address] Carlota Jin MD 1 [facility], [facility] 2 [place] [phone] 01/15/2025 6:45 EDT Treatment [facility] [place] [address] [place], [place] [id number] Carlota Jin MD 1 [facility], [facility] 2 [place] [phone] 01/17/2025 6:45 EDT Treatment [facility] [place] [address] [place], [place] [id number] Carlota Jin MD 1 [facility], [facility] 2 [place] [phone] 01/19/2025 6:45 EDT Treatment [facility] [place] [address] [place], [place] [id number] Carlota Jin MD 1 [facility], [facility] 2 [place] [phone] 01/22/2025 6:45 EDT Treatment [facility] [place] [address] [place], [place] [id number] Carlota Jin MD 1 [facility], [facility] 2 [place] [phone] 01/24/2025 6:45 EDT Treatment [facility] [place] [address] [place], [place] [id number] Carlota Jin MD 1 [facility], [facility] 2 [place] [phone] 01/26/2025 6:45 EDT Treatment [facility] [place] [address] [place], [place] [id number] Carlota Jin MD 1 [facility], [facility] 2 [place] [phone] 01/29/2025 6:45 EDT Treatment [facility] [place] [address] [place], [place] [id number] Carlota Jin MD 1 [facility], [facility] 2 [place] [phone] 01/31/2025 6:45 EDT Treatment [facility] [place] [address] [place], [place] [address] Carlota Jin MD 1 [facility], [facility] 2 [place] [phone] 02/02/2025 6:45 EDT Treatment [facility] [place] [address] [place] [address] Carlota Jin MD 1 [facility], [facility] 2 [place] [phone] 02/05/2025 6:45 EDT Treatment [facility] [place] [address] [place], [place] [id number] Carlota Jin MD 1 [facility], [facility] 2 [place] [phone] 02/07/2025 6:45 EDT Treatment [facility] [place] [address] [place], [place] [id number] Carlota Jin MD 1 [facility], [facility] 2 [place] [phone] 02/09/2025 6:45 EDT Treatment [facility] [place] [address] [place], [place] [id number] Carlota Jin MD 1 [facility], [facility] [address] [place] [phone] 02/12/2025 6:45 EDT Treatment [facility] [place] [address] [place], [place] [id number] Carlota Jin MD 1 [facility], [facility] 2 [place] [phone] 02/14/2025 6:45 EDT Treatment [facility] [address] [place], [place] [id number] Carlota Jin MD [address] [place] [phone] 02/16/2025 6:45 EDT [facility] [address] [place], [place] [id number] Carlota Jin MD [address] [place] [phone] 02/19/2025 6:45 EDT Treatment [facility] [address] [place], [place] [id number] Carlota Jin MD [address] [place] [phone] 02/21/2025 6:45 EDT Treatment [facility] [address] [place], [place] [id number] Calrota Jin MD [address] [place] [phone] documented as of this encounter Procedures Procedure Name Priority Date/Time Associated Diagnosis Comments HEMODIALYSIS Routine 11/20/2022 6:58 EST ESRD (end stage renal disease) ([facility]) documented in this encounter Visit Diagnoses Diagnosis ESRD (end stage renal disease) ([facility])- Primary End stage renal disease documented in this encounter Administered Medications Inactive Administered Medications - up to 3 most recent administrations Medication Order MAR Action Action Date Dose Rate Site heparin injection 9,000 Units 9,000 Units, intravenous, ONCE IN DIALYSIS, 1 dose, On Wed11/20/22 at 0715, Routine, Dialysis, Now x1 bolus 4500 units to be given at the beginning of dialysis 1500 units/hour to be given over the course of dialysis (9000 units total). Stop 1 hour prior to end of treatment. To be administered per Policy [id number].Indications:ESRD (end stage renal disease) ([facility]) Given 11/20/2022 7:15 EST 9,000 Units documented in this encounter Orders Medications Ordered That Davide ht Not Have Been Administered Count Last Ordered Date First Ordered Date heparin injection 9,000 Units 1 11/20/2022 Dialysis Count Last Ordered Date First Orde red Date HEMODIALYSIS 1 11/20/2022 documented in this encounter Care Teams Staffing And Scheduling Coordinator Relationship Specialty Start Date End Date Adeola Villegas APRN [address] [place] [address] PCP - General 10/12/16 07/06/23 documented as of this encounter
--- OUTSIDE RECORDS SUMMARY | 2024-12-05 12:31 | XMS_ITS | Encounter Summary ---
Author Organization [facility] Address [address] [place] [address] Care Team Providers Care Indoor Landscaper/Gardener Name Role Phone Adeola Villegas MONA Primary Care Provider [phone] Encounter Details Date Type Department Care Team (Late st Contact Info) Description 11/20/2022 Documentation Visit [facility] [address] [place], [place] [address] Melissa Crespo, RN Social History Tobacco Use Types Packs/Day Years Used Date Smoking Tobacco: Every Day Cigarettes Smokeless Tobacco: Never Sex and Gender Information Value Date Recorded Sex Assigned at Not on file Legal Sex Male 18:49 EST Gender Identity Male 07/07/2023 14:11 EDT Sexual Orientation Not on file documented as of this encounter Progress Notes * Melissa Crespo, RN - 11/20/2022 1044 EST 11/20/22 10:48 [employer] [facility]ICATION RECONCILIATION Medication review of home medications (prescriptions, wzni-cro-ziyxiyk, herbals, vitamin/mineral/dietary (nutritional) supplements, medical marijuana, and [...] Description 12/06/2024 6:45 EST [facility] [address] [place], [place] [id number] Carlota Jin MD [address] [phone] 12/08/2024 6:45 EST Treatment [facility] [address] [place], [place] [id number] Carlota Jin MD [address] [phone] 12/11/2024 6:45 EST Treatment [facility] [address] [place], [place] [id number] Carlota Jin MD [address] [phone] 12/13/2024 6:45 EST Treatment [facility] [address] [place], [place] [id number] Carlota Jin MD [address] [phone] 12/15/2024 6:45 EST Treatment [facility] [place] [address] [place], [place] [id number] Carlota Jin MD 1 [facility], [facility] [address] [place] [phone] 12/18/2024 6:45 EST Treatment [facility] [place] [address] [place], [place] [id number] Carlota Jin MD 1 [facility], [facility] [address] [place] [phone] 12/20/2024 6:45 EST Treatment [facility] [place] [address] [place] [address] Carlota Jin MD 1 [facility], [facility] [address] [place] [phone] 12/22/2024 6:45 EST Treatment [facility] [place] [address] [place], [place] [id number] Carlota Jin MD 1 [facility], [facility] [address] [place] [phone] 12/25/2024 6:45 EST Treatment [facility] [place] [address] [place], [place] [id number] Carlota Jin MD 1 [facility], [facility] [address] [place] [phone] 12/27/2024 6:45 EST Treatment [facility] [place] [address] [place], [place] [address] Carlota Jin MD 1 [facility], [facility] [address] [place] [phone] 12/29/2024 6:45 EST Treatment [facility] [place] [address] [place], [place] [id number] Carlota Jin MD 1 [facility], [facility] [address] [place] [phone] 01/01/2025 6:45 EDT Treatment [facility] [place] [address] [place], [place] [id number] Carlota Jin MD 1 [facility], [facility] [address] [place] [phone] 01/03/2025 6:45 EDT Treatment [facility] [place] [address] [place], [place] [id number] Carlota Jin MD 1 [facility], [facility] [address] [place] [phone] 01/05/2025 6:45 EDT Treatment [facility] [place] [address] [place], [place] [id number] Carlota Jin MD 1 [facility], [facility] [address] [place] [phone] 01/08/2025 6:45 EDT Treatment [facility] [place] [address] [place], [place] [id number] Carlota Jin MD 1 [facility], [facility] [address] [place] [phone] 01/10/2025 6:45 EDT Treatment [facility] [place] [address] [place], [place] [id number] Carlota Jin MD 1 [facility], [facility] [address] [place] [phone] 01/12/2025 6:45 EDT Treatment [facility] [place] [address] [place], [place] [id number] Carlota Jin MD 1 [facility], [facility] [address] [place] [phone] 01/15/2025 6:45 EDT Treatment [facility] [place] [address] [place], [place] [id number] Carlota Jin MD 1 [facility], [facility] [address] [place] [phone] 01/17/2025 6:45 EDT Treatment [facility] [place] [address] [place], [place] [id number] Carlota Jin MD 1 [facility], [facility] [address] [place] [phone] 01/19/2025 6:45 EDT [facility] [address] [place], [place] [id number] Carlota Jin MD 1 [facility], [facility] [address] [place] [phone] 01/22/2025 6:45 EDT Treatment [facility] [place] [address] [place], [place] [id number] Carlota Jin MD 1 [facility], [facility] [address] [place] [phone] 01/24/2025 6:45 EDT Treatment [facility] [place] [address] [place], [place] [id number] Carlota Jin MD [address] [place] [address], [address] [phone] 01/26/2025 6:45 EDT Treatment [facility] [place] [address] [place], [place] [id number] Carlota Jin MD [address] [place] [address], [address] [phone] 01/29/2025 6:45 EDT Treatment [facility] [place] [address] [place], [place] [id number] Carlota Jin MD 1 [facility], [facility] [address] [place] [phone] 01/31/2025 6:45 EDT Treatment [facility] [place] [address] [place], [place] [id number] Carlota Jin MD 1 [facility], [facility] [address] [place] [phone] 02/02/2025 6:45 EDT Treatment [facility] [place] [address] [place], [place] [id number] Carlota Jin MD 1 [facility], [facility] [address] [place] [phone] 02/05/2025 6:45 EDT Treatment [facility] [place] [address] [place] [address] Carlota Jin MD 1 [facility], [facility] [address] [place] [phone] 02/07/2025 6:45 EDT Treatment [facility] [place] [address] [place], [place] [id number] Carlota Jin MD 1 [facility], [facility] [address] [place] [phone] 02/09/2025 6:45 EDT Treatment [facility] [place] [address] [place] [address] Carlota Jin MD 1 [facility], [facility] [address] [place] [phone] 02/12/2025 6:45 EDT Treatment [facility] [place] [address] [place] [address] Carlota Jin MD 1 [facility], [facility] [address] [place] [phone] 02/14/2025 6:45 EDT Treatment [facility] [place] [address] [place], [place] [id number] Carlota Jin MD 1 [facility], [facility] [address] [place] [phone] 02/16/2025 6:45 EDT Treatment [facility] [place] [address] [place], [place] [id number] Carlota Jin MD [address] [place] [address] [address] [place] [phone] 02/19/2025 6:45 EDT Treatment [facility] [place] [address] [place], [place] [id number] Carlota Jin MD [address] [place] [phone] 02/21/2025 6:45 EDT [facility] [address] [place], [place] [id number] Carlota Jin MD [address] [place] [phone] documented as of this encounter Visit Diagnoses Not on filedocumented in this encounter Discontinued Medications Medication Sig Discontinue Reason Start Date End Da te b nzozguq-I-zjolm acid (NEPHROCAPS) 1 mg capsule Take 1 capsule by mouth daily. Patient Stopped Taking 11/20/2022 labetalol (NORMODYNE) 100 mg tablet Take 100 mg by mouth 2 times daily. Patient Stopped Taking 11/20/2022 documented as of this encounter Care Teams Indoor Landscaper/Gardener Relationship Specialty Start Date End Date Adeola Villegas APRN Mohit [address] [facility] [address] [place], [place] [id number] PCP - General 10/12/16 07/06/23 documented as of this encounter
--- OUTSIDE RECORDS SUMMARY | 2024-12-05 12:31 | XMS_ITS | Encounter Summary ---
Author Organization [facility] Address [address] [place] [address] Care Team Providers Care Ethnic Studies Professor Name Role Phone Adeola Villegas MONA Primary Care Provider [phone] Encounter Details Date Type Department Care Team (Late st Contact Info) Description 11/30/2022 7:15 EST Treatment [facility] [address], [place] [phone] Carlota Jin MD 1 [facility], Level 2 [place] [address] Encounter for immunization (Primary Dx); ESRD (end stage renal disease) ([facility]) Social History Tobacco Use Types [...] - Temperature - - Respiratory Rate 12 11/30/2022 1114 EST Oxygen Saturation - - Inhaled Oxygen Concentration - - Weight 92.9 kg (204 lb 12.9 oz) 11/30/2022 0701 EST Height - - Body Mass Index - - documented in this encounter Miscellaneous Notes * Flowsheet Note - Melissa Crespo RN - 11/30/2022 1430 EST 11/30/22 1114 Post-Hemodialysis Assessment Total Blood Processed (L) 89.28 Liters Dialyzer Clearance Lightly streaked Treatment UFR (ml:kg:hr) 11.69 ml:kg:hr Critline refill Not done Fluid Removed (L) 3.99 L Post-Dialysis Scale Weight 88.7 kg (195 lb 8.8 oz) Wheelchair Weight 0 kg (0 lb) Prosthesis Weight 0 kg (0 lb) Post-Treatment Weight (kg) 88.7 Treatment Weight Change (kg) 4.2 kg Day Target Weight (kg) 89.4 Post Sitting/Lying BP 132/75 Post Sitting/Lying pulse 70 Post Standing BP 143/74 Post Standing Pulse 71 Temp 36.6 ??C (97.9 ??F) Temp [...] unit. Comments No concerns voiced post tx. * Dialysis Rounding - Carlota Jin MD - 11/30/2022 0715 EST Dialysis Provider's Routine Assessment Gerson Bruner was seen and examined as appropriate during Dialysis. Pertinent lab results were reviewed. Changes since last visit: None Changes to current prescriptions/orders: None Complains of pain in his legs but he does not think they are cramps. He will continue to monitor. Carlota Jin MD documented in this encounter Plan of Treatment Upcoming Encounters Date Type Department Care Team (Late st Contact Info) Description 12/06/2024 6:45 EST Treatment [facility] [place] [address] [place] [address] Carlota Jin MD 1 [facility], Level [address] [place] [phone] 12/08/2024 6:45 EST Treatment [facility] [place] [address] [place], [place] [phone] Carlota Jin MD 1 [facility], Level [address] [place] [phone] 12/11/2024 6:45 EST Treatment [facility] [place] [address] [place] [address] Carlota Jin MD 1 [facility], [facility] 2 [place] [phone] 12/13/2024 6:45 EST Treatment [facility] [place] [address] [place] [address] Carlota Jin MD 1 [facility], [facility] 2 [place] [phone] 12/15/2024 6:45 EST Treatment [facility] [place] [address] [place] [address] Carlota Jin MD 1 [facility], Level [address] [place] [phone] 12/18/2024 6:45 EST Treatment [facility] [place] [address] [place], [place] [phone] Carlota Jin MD 1 [facility], Level [address] [place] [phone] 12/20/2024 6:45 EST Treatment [facility] [place] [address] [place], [place] [id number] Carlota Jin MD 1 [facility], [facility] 2 [place] [phone] 12/22/2024 6:45 EST Treatment [facility] [place] [address] [place] [address] Carlota Jin MD 1 [facility], [address] [phone] 12/25/2024 6:45 EST Treatment [facility] [place] [address] [place], [place] [phone] Carlota Jin MD 1 [facility], [address] [phone] 12/27/2024 6:45 EST Treatment [facility] [place] [address] [place], [place] [phone] Carlota Jin MD 1 [facility], [address] [phone] 12/29/2024 6:45 EST Treatment [facility] [place] [address] [place], [place] [phone] Carlota Jin MD 1 [facility], [address] [phone] 01/01/2025 6:45 EDT Treatment [facility] [place] [address] [place], [place] [phone] Carlota Jin MD 1 [facility], [facility] 2 [place] [phone] 01/03/2025 6:45 EDT Treatment [facility] [place] [address] [place], [place] [phone] Carlota Jin MD 1 [facility], [facility] 2 [place] [phone] 01/05/2025 6:45 EDT Treatment [facility] [place] [address] [place], [place] [phone] Carlota Jin MD 1 [facility], [facility] 2 [place] [phone] 01/08/2025 6:45 EDT Treatment [facility] [place] [address] [place] [address] Carlota Jin MD [address] [place] [address], [facility] 2 [place] [phone] 01/10/2025 6:45 EDT Treatment [facility] [place] [address] [place], [place] [phone] Carlota Jin MD [address] [facility], [facility] 2 [place] [phone] 01/12/2025 6:45 EDT Treatment [facility] [place] [address] [place], [place] [id number] Carlota Jin MD 1 [facility], [facility] 2 [place] [phone] 01/15/2025 6:45 EDT Treatment [facility] [place] [address] [place], [place] [address] Carlota Jin MD 1 [facility], [facility] 2 [place] [phone] 01/17/2025 6:45 EDT Treatment [facility] [place] [address] [place], [place] [phone] Carlota Jin MD 1 [facility], [facility] 2 [place] [phone] 01/19/2025 6:45 EDT Treatment [facility] [place] [address] [place], [place] [id number] Carlota Jin MD 1 [facility], [facility] 2 [place] [phone] 01/22/2025 6:45 EDT Treatment [facility] [place] [address] [place], [place] [id number] Carlota Jin MD 1 [facility], [address] [phone] 01/24/2025 6:45 EDT Treatment [facility] [place] [address] [place], [place] [phone] Carlota Jin MD 1 [facility], [facility] 2 [place] [phone] 01/26/2025 6:45 EDT Treatment [facility] [place] [address] [place], [place] [id number] Carlota Jin MD 1 [facility] 2 [place] [phone] 01/29/2025 6:45 EDT Treatment [facility] [place] [address] [place], [place] [id number] Carlota Jin MD 1 [facility], [facility] 2 [place] [phone] 01/31/2025 6:45 EDT Treatment [facility] [place] [address] [place], [place] [phone] Carlota Jin MD 1 [facility], [facility] 2 [place] [phone] 02/02/2025 6:45 EDT Treatment [facility] [place] [address] [place], [place] [id number] Carlota Jin MD 1 [facility], [facility] 2 [place] [phone] 02/05/2025 6:45 EDT Treatment [facility] [place] [address] [place] [address] Carlota Jin MD 1 [facility], [facility] 2 [place] [phone] 02/07/2025 6:45 EDT Treatment [facility] [address] [place], [place] [phone] Carlota Jin MD 1 [facility], [facility] 2 [place] [phone] 02/09/2025 6:45 EDT Treatment [facility] [place] [address] [place], [place] [phone] Carlota Jin MD 1 [facility], [facility] 2 [place] [phone] 02/12/2025 6:45 EDT Treatment [facility] [place] [address] [place], [place] [id number] Carlota Jin MD 1 [facility], [address] [phone] 02/14/2025 6:45 EDT Treatment [facility] [place] [address] [place], [place] [id number] Carlota Jin MD 1 [facility], [address] [phone] 02/16/2025 6:45 EDT Treatment [facility] [place] [address] [place], [place] [phone] Carlota Jin MD 1 [facility], [facility] 2 [place] [phone] 02/19/2025 6:45 EDT Treatment [facility] [place] [address] [place], [place] [phone] Carlota Jin MD 1 [facility], [facility] 2 [place] [phone] 02/21/2025 6:45 EDT Treatment [facility] [place] [address] [place], [place] [phone] Carlota Jin MD 1 [facility], Level [address] [place] [phone] documented as of this encounter Procedures Procedure Name Priority Date/Time Associated Diagnosis Comments POSTDIALYSIS BUN WITH URR CALCULATION Routine 11/30/2022 11:59 EST ESRD (end stage renal disease) ([facility]) TRANSFERRIN SATURATION Routine 11/30/2022 7:24 EST ESRD (end stage renal disease) ([facility]) DIALYSIS ROUTINE - DIALYSIS ONLY (BUN, K, NA, CL, CO2, SANJEEV, ALB, MG, PHOS, ALKP, AST) Routine 11/30/2022 7:24 EST ESRD (end stage renal disease) ([facility]) PROFILE IRON STUDIES (INCLUDES IRON, IBC, AND FERRITIN) Routine 11/30/2022 7:24 EST ESRD (end stage renal disease) ([facility]) PTH INTACT Routine 11/30/2022 7:24 EST ESRD (end stage renal disease) ([facility]) FERRITIN Routine 11/30/2022 7:24 EST ESRD (end stage renal disease) ([facility]) HEMODIALYSIS Routine 11/30/2022 7:02 EST ESRD (end stage renal disease) ([facility]) documented in this encounter Results * (ABNORMAL) POSTDIALYSIS BUN WITH URR CALCULATION (11/30/2022 11:59 EST) BUN, Postdialysis 22 10 - 26 mg/dL 11/30/2022 22:21 EST [facility] Urea Reduction Rate 72.5 Not Established % 11/30/2022 22:21 EST [facility] Comment: NOTE: Reference range not established for Urea Reduction Rate. BUN 80(H) 10 - 26 mg/dL 11/30/2022 22:21 EST [facility] Blood VENOUS BLOOD / Unknown Venipuncture / Unknown 11/30/2022 11:59 EST 11/30/2022 11:59 EST us Carlota Jin MD CHEMISTRY & BLOOD GAS ORD ERABLES Final Result Performing Organization Address City/[facility]/ZIP Co de Phone Number [facility] [address] [place] [address] * (ABNORMAL) FERRITIN (11/30/2022 7:24 EST) Ferritin 708(H) 22 - 322 ng/mL 11/30/2022 23:04 EST [facility] Blood VENOUS BLOOD / Unknown Venipuncture / Unknown 11/30/2022 7:24 EST 11/30/2022 7:24 EST us Carlota Jin MD CHEMISTRY & BLOOD GAS ORD ERABLES Final Result Performing Organization Address [facility] Co de Phone Number [facility] [address] [place] [address] * (ABNORMAL) TRANSFERRIN SATURATION (11/30/2022 7:24 EST) Iron 80 49 - 181 ??g/dL 11/30/2022 22:27 EST [facility] Iron Binding Capacity 210(L) 240 - 450 ??g/dL 11/30/2022 22:27 EST [facility] Transferrin Saturation 38 15 - 45 % 11/30/2022 22:27 EST [facility] Blood VENOUS BLOOD / Unknown Venipuncture / Unknown 11/30/2022 7:24 EST 11/30/2022 7:24 EST us Carlota Jin MD CHEMISTRY & BLOOD GAS ORD ERABLES Final Result Performing Organization Address City/[facility]/ZIP Co de Phone Number [facility] [address] [place] [address] * (ABNORMAL) PTH INTACT (11/30/2022 7:24 EST) Intact PTH 341(H) 19 - 88 pg/mL 12/01/2022 8:29 [facility] Blood VENOUS BLOOD / Unknown Venipuncture / Unknown 11/30/2022 7:24 EST 11/30/2022 7:24 EST us Carlota Jin MD CHEMISTRY & BLOOD GAS ORD ERABLES Final Result [facility] [address] [place] [address] * (ABNORMAL) DIALYSIS ROUTINE - DIALYSIS ONLY (BUN, K, NA, CL, CO2, SANJEEV, ALB, MG, PHOS, ALKP, AST) (11/30/2022 7:24 EST) Sodium 135(L) 136 - 145 mmol/L 11/30/2022 22:18 [facility] Potassium 5.8(H) 3.5 - 5.0 mmol/L 11/30/2022 22:18 [facility] Chloride 99 96 - 110 mmol/L 11/30/2022 22:18 [facility] CO2 Total 24 22 - 32 mmol/L 11/30/2022 22:18 [facility] Calcium 8.5 8.5 - 10.5 mg/dL 11/30/2022 22:18 [facility] Albumin 3.4 3.4 - 4.9 g/dL 11/30/2022 22:18 [facility] Phosphorus 7.7(H) 2.5 - 4.5 mg/dL 11/30/2022 22:18 [facility] Calcium Phos Product 65.5 See Note mg/dL 11/30/2022 22:18 [facility] Comment: NOTE: Reference range not established BUN, Predialysis 80(H) 10 - 26 mg/dL 11/30/2022 22:18 [facility] AST 27 15 - 46 U/L 11/30/2022 22:18 [facility] Alkaline Phosphatase 82 38 - 126 U/L 11/30/2022 22:18 [facility] Magnesium 2.5 1.7 - 2.8 mg/dL 11/30/2022 22:18 EST [facility] Anion Gap 12 5 - 14 11/30/2022 22:18 EST [facility] Calculated Calcium 9.0 8.9 - 10.5 mg/dL 11/30/2022 22:18 EST [facility] Blood VENOUS BLOOD / Unknown Venipuncture / Unknown 11/30/2022 7:24 EST 11/30/2022 7:24 EST us Carlota Jin MD CHEMISTRY & BLOOD GAS ORD ERABLES Final Result [facility] [address] [place] [address] documented in this encounter Visit Diagnoses Diagnosis Encounter for immunization- Primary Need for other specified prophylactic vaccination against single bacterial disease ESRD (end stage renal disease) ([facility]) End stage renal disease documented in this encounter Administered Medications Inactive Administered Medications - up to 3 most recent administrations Medication Order MAR Action Action Date Dose Rate Site epoetin ken (EPOGEN) 20,000 unit/2 mL injection 500 Units 500 Units, intravenous, ONCE IN DIALYSIS, 1 dose, On Wed11/30/22 at 0730, Routine, DialysisIndications:ESRD (end stage renal disease) ([facility]) Given 11/30/2022 8:06 EST 500 Units heparin injection 9,000 Units 9,000 Units, intravenous, ONCE IN DIALYSIS, 1 dose, On Wed11/30/22 at 0730, Routine, Dialysis, Now x1 bolus 4500 units to be given at the beginning of dialysis 1500 units/hour to be given over the course of dialysis (9000 units total). Stop 1 hour prior to end of treatment. To be administered per Policy [id number].Indications:ESRD (end stage renal disease) ([facility]) Given 11/30/2022 7:11 EST 9,000 Units documented in this encounter Orders Dialysis Count Last Ordered Date First Orde red Date HEMODIALYSIS 1 11/30/2022 documented in this encounter Care Teams Ethnic Studies Professor Relationship Specialty Start Date End Date Adeola Villegas APRN [address] [place] [address] PCP - General 10/12/16 07/06/23 documented as of this encounter
--- OUTSIDE RECORDS SUMMARY | 2024-12-05 12:31 | XMS_ITS | Encounter Summary ---
Author Organization [facility] Address [address] [place] [address] Care Team Providers Care Civil Draftsman Name Role Phone Adeola Villegas APRN Primary Care Provider [phone] Encounter Details Date Type Department Care Team (Late st Contact Info) Description 11/23/2022 7:15 EST Treatment [facility] [address] [place], [place] [id number] Carlota Jin MD 1 [facility], Level 2 [place] [address] ESRD (end stage renal disease) ([facility]) (Primary Dx) Social History Tobacco Use [...] - Temperature - - Respiratory Rate 16 11/23/2022 0656 EST Oxygen Saturation - - Inhaled Oxygen Concentration - - Weight 92.2 kg (203 lb 4.2 oz) 11/23/[address] Height - - Body Mass Index - - documented in this encounter Miscellaneous Notes * Flowsheet Note - Marcela Cox RN - 11/23/2022 1340 EST 11/23/22 1113 Post-Hemodialysis Assessment Total Blood Processed (L) 89.88 Liters Dialyzer Clearance Lightly streaked Treatment UFR (ml:kg:hr) 8.05 ml:kg:hr Critline refill Not done Fluid Removed (L) 3 L Post-Dialysis Scale Weight 89.3 kg (196 lb 13.9 oz) Wheelchair Weight 0 kg (0 lb) Prosthesis Weight 0 kg (0 lb) Post-Treatment Weight (kg) 89.3 Treatment Weight Change (kg) 2.9 kg Day Target Weight (kg) 89.7 Post Sitting/Lying BP 139/70 Post Sitting/Lying pulse 60 Post Standing BP 114/69 Post Standing Pulse 67 Temp 35.7 ??C (96.3 ??F) Temp src Temporal Post access assessment AVF/AFG Hemostasis achieved Yes Note 10 min self hold Orientation Alert and Oriented x3 Yes [...] EST Treatment [facility] [address] [place], [place] [id number] Carlota Jin MD [address] [place] [address], [facility] 2 [place] [address] 12/08/2024 6:45 EST Treatment [facility] [address] [place] [id number] Carlota Jin MD [address] [place] [address], [facility] 2 [place] [address] 12/11/2024 6:45 EST Treatment [facility] [address] [place] [id number] Carlota Jin MD 1 [facility], [facility] 2 [place] [phone] 12/13/2024 6:45 EST Treatment [facility] [place] [address] [place], [place] [id number] Carlota Jin MD 1 [facility], [facility] 2 [place] [phone] 12/15/2024 6:45 EST Treatment [facility] [place] [address] [place], [place] [id number] Carlota Jin MD 1 [facility], [facility] 2 [place] [phone] 12/18/2024 6:45 EST Treatment [facility] [address] [place], [place] [id number] Carlota Jin MD 1 [facility], [facility] 2 [place] [phone] 12/20/2024 6:45 EST Treatment [facility] [address] [place], [place] [id number] Carlota Jin MD 1 [facility], [facility] 2 [place] [phone] 12/22/2024 6:45 EST Treatment [facility] [address] [place], [place] [id number] Carlota Jin MD 1 [facility], [facility] 2 [place] [phone] 12/25/2024 6:45 EST Treatment [facility] [address] [place], [place] [id number] Carlota Jin MD 1 [facility], [facility] 2 [place] [phone] 12/27/2024 6:45 EST Treatment [facility] [address] [place], [place] [id number] Carlota Jin MD 1 [facility], [facility] 2 [place] [phone] 12/29/2024 6:45 EST Treatment [facility] [address] [place] [address] Carlota Jin MD 1 [facility], [address] [phone] 01/01/2025 6:45 EDT Treatment [facility] [address] [place], [place] [id number] Carlota Jin MD 1 [facility], [facility] 2 [place] [phone] 01/03/2025 6:45 EDT Treatment [facility] [place] [address] [place], [place] [id number] Carlota Jin MD 1 [facility], [facility] 2 [place] [phone] 01/05/2025 6:45 EDT Treatment [facility] [address] [place] [address] Carlota Jin MD 1 [facility], [facility] 2 [place] [phone] 01/08/2025 6:45 EDT Treatment [facility] [address] [place] [address] Carlota Jin MD 1 [facility], [facility] 2 [place] [phone] 01/10/2025 6:45 EDT Treatment [facility] [address] [place] [address] Carlota Jin MD 1 [facility], [address] [phone] 01/12/2025 6:45 EDT Treatment [facility] [address] [place] [address] Carlota Jin MD 1 [facility], [address] [phone] 01/15/2025 6:45 EDT Treatment [facility] [address] [place] [address] Carlota Jin MD 1 [facility], [facility] 2 [place] [phone] 01/17/2025 6:45 EDT Treatment [facility] [address] [place], [place] [id number] Carlota Jin MD 1 [facility], [facility] 2 [place] [phone] 01/19/2025 6:45 EDT Treatment [facility] [place] [address] [place], [place] [id number] Carlota Jin MD 1 [facility], [facility] 2 [place] [phone] 01/22/2025 6:45 EDT Treatment [facility] [address] [place], [place] [id number] Carlota Jin MD 1 [facility], [facility] 2 [place] [phone] 01/24/2025 6:45 EDT Treatment [facility] [place] [address] [place], [place] [address] Carlota Jin MD 1 [facility], [facility] 2 [place] [phone] 01/26/2025 6:45 EDT Treatment [facility] [address] [place], [place] [id number] Carlota Jin MD 1 [facility], [facility] 2 [place] [phone] 01/29/2025 6:45 EDT Treatment [facility] [place] [address] [place], [place] [id number] Carlota Jin MD 1 [facility], [facility] 2 [place] [phone] 01/31/2025 6:45 EDT Treatment [facility] [address] [place], [place] [id number] Carlota Jin MD 1 [facility], [address] [phone] 02/02/2025 6:45 EDT Treatment [facility] [address] [place], [place] [id number] Carlota Jin MD 1 [facility], [address] [phone] 02/05/2025 6:45 EDT Treatment [facility] [place] [address] [place], [place] [id number] Carlota Jin MD 1 [facility], [address] [phone] 02/07/2025 6:45 EDT Treatment [facility] [place] [address] [place], [place] [id number] Carlota Jin MD [address] [phone] 02/09/2025 6:45 EDT Treatment [facility] [place] [address] [place], [place] [id number] Carlota Jin MD [address] [phone] 02/12/2025 6:45 EDT Treatment [facility] [address] [place], [place] [id number] Carlota Jin MD 1 [place] [address] [phone] 02/14/2025 6:45 EDT Treatment [facility] [address] [place], [place] [id number] Carlota Jin MD [address] [place] [phone] 02/16/2025 6:45 EDT Treatment [facility] [address] [place], [place] [id number] Carlota Jin MD [address] [place] [phone] 02/19/2025 6:45 EDT Treatment [facility] [address] [place], [place] [id number] Carlota Jni MD [address] [place] [phone] 02/21/2025 6:45 EDT [facility] [address] [place], [place] [id number] Carlota Jin MD [address] [place] [phone] documented as of this encounter Procedures Procedure Name Priority Date/Time Associated Diagnosis Comments HEMODIALYSIS Routine 11/23/2022 6:56 EST ESRD (end stage renal disease) ([facility]) documented in this encounter Visit Diagnoses Diagnosis ESRD (end stage renal disease) ([facility])- Primary End stage renal disease documented in this encounter Administered Medications Inactive Administered Medications - up to 3 most recent administrations Medication Order MAR Action Action Date Dose Rate Site heparin injection 9,000 Units 9,000 Units, intravenous, ONCE IN DIALYSIS, 1 dose, On 11/23/22 at 0715, Routine, Dialysis, Now x1 bolus 4500 units to be given at the beginning of dialysis 1500 units/hour to be given over the course of dialysis (9000 units total). Stop 1 hour prior to end of treatment. To be administered per Policy [id number].Indications:ESRD (end stage renal disease) ([facility]) Given 11/23/2022 7:11 EST 9,000 Units documented in this encounter Orders Medications Ordered That Davide ht Not Have Been Administered Count Last Ordered Date First Ordered Date heparin injection 9,000 Units 1 11/23/2022 Dialysis Count Last Ordered Date First Orde red Date HEMODIALYSIS 1 11/23/2022 documented in this encounter Care Teams Civil Draftsman Relationship Specialty Start Date End Date Adeola Villegas APRN [address] [place] [address] PCP - General 10/12/16 07/06/23 documented as of this encounter
--- OUTSIDE RECORDS SUMMARY | 2024-12-05 12:31 | XMS_ITS | Encounter Summary ---
Author Organization [facility] Address [address] [place] [address] Care Team Providers Care Airfreight Loading Supervisor Name Role Phone Adeola Villegas MONA Primary Care Provider [phone] Encounter Details Date Type Department Care Team (Late st Contact Info) Description 12/04/2022 7:15 EST Treatment [facility] [address] [place], [place] [id number] Carlota Jni MD 1 [facility], Level 2 [place] [address] Encounter for immunization (Primary Dx); ESRD (end stage renal disease) ([facility]) Social History Tobacco Use Types Packs/Day [...] - Temperature - - Respiratory Rate 14 12/04/2022 0654 EST Oxygen Saturation - - Inhaled Oxygen Concentration - - Weight 91.6 kg (201 lb 15.1 oz) 12/04/2022 0658 EST Height - - Body Mass Index - - documented in this encounter Miscellaneous Notes * Flowsheet Note - Melissa Crespo RN - 12/04/2022 1526 EST 12/04/22 1118 Post-Hemodialysis Assessment Total Blood Processed (L) 89.77 Liters Dialyzer Clearance Lightly streaked Treatment UFR (ml:kg:hr) 8.97 ml:kg:hr Critline refill Not done Fluid Removed (L) 3.5 L Post-Dialysis Scale Weight 88.4 kg (194 lb 14.2 oz) Wheelchair Weight 0 kg (0 lb) Prosthesis Weight 0 kg (0 lb) Post-Treatment Weight (kg) 88.4 Treatment Weight Change (kg) 3.2 kg Day Target Weight (kg) 88.3 Post Sitting/Lying BP 145/71 Post Sitting/Lying pulse 62 Post Standing BP 124/70 Post Standing Pulse 66 Temp 36.7 ??C (98.1 ??F) Temp src Temporal Post access assessment AVF/AFG Hemostasis achieved Yes Note 10 min hold Orientation Alert and Oriented x3 Yes Cooperative Yes Disoriented No Discharge Ambulation Methods Ambulatory without assistance Wrap up items Patient Response to Treatment Tolerated tx. Removed 3500 / 3800 UF goal. Stable upon DC from unit. Comments No concerns voiced post tx. documented in this encounter Plan of Treatment Upcoming Encounters Date Type Department Care Team (Late st Contact Info) Description 12/06/2024 6:45 EST Treatment [facility] [address] [place], [place] [id number] Carlota Jin MD [address] [place] [address], [facility] 2 [place] [phone] 12/08/2024 6:45 EST Treatment [facility] [address] [place] [id number] Carlota Jin MD [address] [place] [address], [facility] 2 [place] [phone] 12/11/2024 6:45 EST Treatment [facility] [address] [place] [id number] Carl[facility] MD 1 [facility], [facility] 2 [place] [phone] 12/13/2024 6:45 EST Treatment [facility] [place] [address] [place], [place] [id number] Carlota Jin MD 1 [facility], [facility] 2 [place] [phone] 12/15/2024 6:45 EST Treatment [facility] [place] [address] [place] [address] Carlota Jin MD 1 [facility], [address] [phone] 12/18/2024 6:45 EST Treatment [facility] [place] [address] [place], [place] [id number] Carlota Jin MD 1 [facility], [address] [phone] 12/20/2024 6:45 EST Treatment [facility] [place] [address] [place] [address] Carlota Jin MD 1 [facility], [facility] 2 [place] [phone] 12/22/2024 6:45 EST Treatment [facility] [place] [address] [place], [place] [id number] Carlota Jin MD 1 [facility], [facility] 2 [place] [phone] 12/25/2024 6:45 EST Treatment [facility] [place] [address] [place], [place] [id number] Carlota Jin MD 1 [facility], [facility] 2 [place] [phone] 12/27/2024 6:45 EST Treatment [facility] [place] [address] [place], [place] [id number] Carlota Jin MD 1 [facility], [facility] 2 [place] [phone] 12/29/2024 6:45 EST Treatment [facility] [place] [address] [place], [place] [id number] Carlota Jin MD 1 [facility], [facility] 2 [place] [phone] 01/01/2025 6:45 EDT Treatment [facility] [place] [address] [place] [address] Carlota Jin MD 1 [facility], [facility] 2 [place] [phone] 01/03/2025 6:45 EDT Treatment [facility] [place] [address] [place], [place] [id number] Carlota Jin MD 1 [facility], [facility] 2 [place] [phone] 01/05/2025 6:45 EDT Treatment [facility] [place] [address] [place], [place] [id number] Carlota Jin MD 1 [facility], [facility] 2 [place] [phone] 01/08/2025 6:45 EDT Treatment [facility] [place] [address] [place], [place] [id number] Carlota Jin MD 1 [facility], [address] [phone] 01/10/2025 6:45 EDT Treatment [facility] [place] [address] [place], [place] [id number] Carlota Jin MD 1 [facility], [address] [phone] 01/12/2025 6:45 EDT Treatment [facility] [place] [address] [place], [place] [id number] Carlota Jin MD 1 [facility], [address] [phone] 01/15/2025 6:45 EDT Treatment [facility] [place] [address] [place], [place] [id number] Carlota Jin MD 1 [facility], [facility] 2 [place] [phone] 01/17/2025 6:45 EDT Treatment [facility] [place] [address] [place], [place] [id number] Carlota Jin MD 1 [facility], [facility] 2 [place] [phone] 01/19/2025 6:45 EDT Treatment [facility] [place] [address] [place], [place] [id number] Carlota Jin MD 1 [facility], [facility] 2 [place] [phone] 01/22/2025 6:45 EDT Treatment [facility] [place] [address] [place], [place] [id number] Carlota Jin MD 1 [facility], [facility] 2 [place] [phone] 01/24/2025 6:45 EDT Treatment [facility] [place] [address] [place] [address] Carlota Jin MD 1 [facility], [address] [phone] 01/26/2025 6:45 EDT Treatment [facility] [place] [address] [place], [place] [id number] Carlota Jin MD 1 [facility], [facility] 2 [place] [phone] 01/29/2025 6:45 EDT Treatment [facility] [place] [address] [place], [place] [id number] Carlota Jin MD 1 [facility], [facility] 2 [place] [phone] 01/31/2025 6:45 EDT Treatment [facility] [place] [address] [place], [place] [address] Carlota Jin MD 1 [facility], [facility] 2 [place] [phone] 02/02/2025 6:45 EDT Treatment [facility] [place] [address] [place], [place] [id number] Carlota Jin MD 1 [facility], [facility] 2 [place] [phone] 02/05/2025 6:45 EDT Treatment [facility] [place] [address] [place] [address] Carlota Jin MD 1 [facility], [address] [phone] 02/07/2025 6:45 EDT Treatment [facility] [place] [address] [place], [place] [id number] Carlota Jin MD [address] [phone] 02/09/2025 6:45 EDT Treatment [facility] [place] [address] [place], [place] [id number] Carlota Jin MD [address] [phone] 02/12/2025 6:45 EDT Treatment [facility] [place] [address] [place], [place] [id number] Carlota Jin MD 1 [facility] 2 [place] [phone] 02/14/2025 6:45 EDT Treatment [facility] [place] [address] [place], [place] [id number] Carlota Jin MD 1 [facility], [address] [phone] 02/16/2025 6:45 EDT Treatment [facility] [place] [address] [place], [place] [id number] Carlota Jin MD 1 [facility], [address] [phone] 02/19/2025 6:45 EDT Treatment [facility] [place] [address] [place], [place] [id number] Carlota Jin MD [address] [place] [phone] 02/21/2025 6:45 EDT [facility] [address] [place] [id number] Carlota Jin MD 1 [facility], [address] [phone] documented as of this encounter Procedures Procedure Name Priority Date/Time Associated Diagnosis Comments HEMODIALYSIS Routine 12/04/2022 6:58 EST Encounter for immunization ESRD (end stage renal disease) ([facility]) documented in this encounter Visit Diagnoses Diagnosis Encounter for immunization- Primary Need for other specified prophylactic vaccination against single bacterial disease ESRD (end stage renal disease) ([facility]) End stage renal disease documented in this encounter Administered Medications Inactive Administered Medications - up to 3 most recent administrations Medication Order MAR Action Action Date Dose Rate Site epoetin ken (EPOGEN) 20,000 unit/2 mL injection 500 Units 500 Units, intravenous, ONCE IN DIALYSIS, 1 dose, On Wed12/04/22 at 0715, Routine, DialysisIndications:Encounter for immunization,ESRD (end stage renal disease) ([facility]) Given 12/04/2022 8:36 EST 500 Units heparin injection 9,000 Units 9,000 Units, intravenous, ONCE IN DIALYSIS, 1 dose, On Wed12/04/22 at 0715, Routine, Dialysis, Now x1 bolus 4500 units to be given at the beginning of dialysis 1500 units/hour to be given over the course of dialysis (9000 units total). Stop 1 hour prior to end of treatment. To be administered per Policy [id number].Indications:Encounter for immunization,ESRD (end stage renal disease) ([facility]) Given 12/04/2022 7:16 EST 9,000 Units documented in this encounter Orders Dialysis Count Last Ordered Date First Orde red Date HEMODIALYSIS 1 12/04/2022 documented in this encounter Care Teams Airfreight Loading Supervisor Relationship Specialty Start Date End Date Adeola Villegas APRN [address] [place] [address] PCP - General 10/12/16 07/06/23 documented as of this encounter
--- OUTSIDE RECORDS SUMMARY | 2024-12-05 12:31 | XMS_ITS | Encounter Summary ---
Author Organization [facility] Address [address] [place] [address] Care Team Providers Care Adult Secondary Education Instructor Name Role Phone Adeola Villegas MONA Primary Care Provider [phone] Encounter Details Date Type Department Care Team (Late st Contact Info) Description 12/09/2022 7:15 EST Treatment [facility] [address] [place], [place] [id number] Carlota Jin MD 1 [facility], Level 2 [place] [address] Encounter for immunization (Primary Dx); ESRD (end stage renal disease) ([facility]) Social History Tobacco Use Types Packs/Day [...] - Temperature - - Respiratory Rate 16 12/09/2022 0655 EST Oxygen Saturation - - Inhaled Oxygen Concentration - - Weight 91.6 kg (201 lb 15.1 oz) 12/09/2022 0657 EST Height - - Body Mass Index - - documented in this encounter Miscellaneous Notes * Flowsheet Note - Marcela Cox RN - 12/09/2022 1150 EST 12/09/22 1108 Post-Hemodialysis Assessment Total Blood Processed (L) 89.27 Liters Dialyzer Clearance Lightly streaked Treatment UFR (ml:kg:hr) 9.89 ml:kg:hr Critline refill Negative Fluid Removed (L) 3.8 L Post-Dialysis Scale Weight 88.1 kg (194 lb 3.6 oz) Wheelchair Weight 0 kg (0 lb) Prosthesis Weight 0 kg (0 lb) Post-Treatment Weight (kg) 88.1 Treatment Weight Change (kg) 3.5 kg Day Target Weight (kg) 88.3 Post Sitting/Lying BP 156/76 Post Sitting/Lying pulse 68 Post Standing BP 109/76 Post Standing Pulse 68 Temp 36.2 ??C (97.2 ??F) Temp [...] [facility] [address] [place], [place] [phone] Carlota Jin MD [address] [place] [address], [facility] 2 [place] [address] 12/08/2024 6:45 EST Treatment [facility] [address] [place] [phone] Carlota Jin MD [address] [place] [address], [facility] 2 [place] [phone] 12/11/2024 6:45 EST Treatment [facility] [address] [place] [id number] Carlota Jin MD 1 [facility], [facility] 2 [place] [phone] 12/13/2024 6:45 EST Treatment [facility] [place] [address] [place], [place] [phone] Carlota Jin MD 1 [facility], [facility] 2 [place] [phone] 12/15/2024 6:45 EST Treatment [facility] [place] [address] [place] [address] Carlota Jin MD 1 [facility], [address] [phone] 12/18/2024 6:45 EST Treatment [facility] [place] [address] [place], [place] [phone] Carlota Jin MD 1 [facility], [address] [phone] 12/20/2024 6:45 EST Treatment [facility] [place] [address] [place] [address] Carlota iJn MD 1 [facility], [facility] 2 [place] [phone] 12/22/2024 6:45 EST Treatment [facility] [place] [address] [place], [place] [phone] Carlota Jin MD 1 [facility], [facility] 2 [place] [phone] 12/25/2024 6:45 EST Treatment [facility] [place] [address] [place], [place] [phone] Carlota Jin MD 1 [facility], [facility] 2 [place] [phone] 12/27/2024 6:45 EST Treatment [facility] [place] [address] [place], [place] [id number] Carlota Jin MD 1 [facility], [facility] 2 [place] [phone] 12/29/2024 6:45 EST Treatment [facility] [place] [address] [place], [place] [phone] Carlota Jin MD 1 [facility], [facility] 2 [place] [phone] 01/01/2025 6:45 EDT Treatment [facility] [place] [address] [place] [address] Carlota Jin MD 1 [facility], [facility] 2 [place] [phone] 01/03/2025 6:45 EDT Treatment [facility] [place] [address] [place], [place] [phone] Carlota Jin MD 1 [facility], [facility] 2 [place] [phone] 01/05/2025 6:45 EDT Treatment [facility] [place] [address] [place], [place] [phone] Carlota Jin MD 1 [facility], [facility] 2 [place] [phone] 01/08/2025 6:45 EDT Treatment [facility] [place] [address] [place], [place] [phone] Carlota Jin MD 1 [facility], [address] [phone] 01/10/2025 6:45 EDT Treatment [facility] [place] [address] [place], [place] [address] Carlota Jin MD 1 [facility], [address] [phone] 01/12/2025 6:45 EDT Treatment [facility] [place] [address] [place], [place] [phone] Carlota Jin MD 1 [facility], [address] [phone] 01/15/2025 6:45 EDT Treatment [facility] [place] [address] [place], [place] [address] Carlota Jin MD 1 [facility], [facility] 2 [place] [phone] 01/17/2025 6:45 EDT Treatment [facility] [place] [address] [place], [place] [phone] Carlota Jin MD 1 [facility], [facility] 2 [place] [phone] 01/19/2025 6:45 EDT Treatment [facility] [place] [address] [place], [place] [address] Carlota Jin MD 1 [facility], [facility] 2 [place] [phone] 01/22/2025 6:45 EDT Treatment [facility] [place] [address] [place], [place] [phone] Carlota Jin MD 1 [facility], [facility] 2 [place] [phone] 01/24/2025 6:45 EDT Treatment [facility] [place] [address] [place] [address] Carlota Jin MD 1 [facility], [address] [phone] 01/26/2025 6:45 EDT Treatment [facility] [place] [address] [place], [place] [address] Carlota Jin MD 1 [facility], [facility] 2 [place] [phone] 01/29/2025 6:45 EDT Treatment [facility] [place] [address] [place], [place] [phone] Carlota Jin MD 1 [facility], [facility] 2 [place] [phone] 01/31/2025 6:45 EDT Treatment [facility] [place] [address] [place], [place] [address] Carlota Jin MD 1 [facility], [facility] 2 [place] [phone] 02/02/2025 6:45 EDT Treatment [facility] [place] [address] [place], [place] [phone] Carlota Jin MD 1 [facility], [facility] 2 [place] [phone] 02/05/2025 6:45 EDT Treatment [facility] [place] [address] [place] [address] Carlota Jin MD 1 [facility], [address] [phone] 02/07/2025 6:45 EDT Treatment [facility] [place] [address] [place], [place] [phone] Carlota Jin MD [address] [phone] 02/09/2025 6:45 EDT Treatment [facility] [place] [address] [place], [place] [address] Carlota Jin MD [address] [phone] 02/12/2025 6:45 EDT Treatment [facility] [place] [address] [place], [place] [phone] Carlota Jin MD 1 [facility] 2 [place] [phone] 02/14/2025 6:45 EDT Treatment [facility] [place] [address] [place], [place] [phone] Carlota Jin MD 1 [facility], [facility] 2 [place] [phone] 02/16/2025 6:45 EDT Treatment [facility] [address] [place], [place] [phone] Carlota Jin MD 1 [facility], [address] [phone] 02/19/2025 6:45 EDT Treatment [facility] [place] [address] [place], [place] [phone] Carlota Jin MD 1 [facility], [address] [phone] 02/21/2025 6:45 EDT [facility] [address] [place], [place] [phone] Carlota Jin MD 1 [facility], [address] [phone] documented as of this encounter Procedures Procedure Name Priority Date/Time Associated Diagnosis Comments COMPLETE BLOOD COUNT Routine 12/09/2022 7:00 EST Encounter for immunization ESRD (end stage renal disease) ([facility]) HEMODIALYSIS Routine 12/09/2022 6:57 EST Encounter for immunization ESRD (end stage renal disease) ([facility]) documented in this encounter Results * (ABNORMAL) COMPLETE BLOOD COUNT (12/09/2022 7:00 EST) WBC 7.81 4.00 - 10.40 K/cmm 12/09/2022 21:43 [facility] RBC 3.33(L) 4.36 - 5.78 M/cmm 12/09/2022 21:43 [facility] Hemoglobin 10.7(L) 13.8 - 17.3 gm/dL 12/09/2022 21:43 [facility] HCT 32.2(L) 39.5 - 50.2 % 12/09/2022 21:43 [facility] MCV 97(H) 81 - 95 fl 12/09/2022 21:43 [facility] MCH 32.1 27.6 - 33.0 pg 12/09/2022 21:43 [facility] MCHC 33.2 32.8 - 36.4 gm/dL 12/09/2022 21:43 [facility] RDW-CV 13.2 <14.2 % 12/09/2022 21:43 [facility] RDW-SD 47.2(H) <46.0 fl 12/09/2022 21:43 [facility] PLT 248 141 - 377 K/cmm 12/09/2022 21:43 [facility] MPV 11.5 9.5 - 12.7 fl 12/09/2022 21:43 [facility] Blood VENOUS BLOOD / Unknown Venipuncture / Unknown 12/09/2022 7:00 EST 12/09/2022 7:00 EST us Carlota Jin MD HEMATOLOGY & PF4 ORDERABL ES Final Result [facility] [address] [place] [address] documented in this encounter Visit Diagnoses Diagnosis Encounter for immunization- Primary Need for other specified prophylactic vaccination against single bacterial disease ESRD (end stage renal disease) ([facility]) End stage renal disease documented in this encounter Administered Medications Inactive Administered Medications - up to 3 most recent administrations Medication Order MAR Action Action Date Dose Rate Site epoetin ken (EPOGEN) 20,000 unit/2 mL injection 500 Units 500 Units, intravenous, ONCE IN DIALYSIS, 1 dose, On Wed12/09/22 at 0715, Routine, DialysisIndications:Encounter for immunization,ESRD (end stage renal disease) ([facility]) Given 12/09/2022 7:14 EST 500 Units heparin injection 9,000 Units 9,000 Units, intravenous, ONCE IN DIALYSIS, 1 dose, On Wed12/09/22 at 0715, Routine, Dialysis, Now x1 bolus 4500 units to be given at the beginning of dialysis 1500 units/hour to be given over the course of dialysis (9000 units total). Stop 1 hour prior to end of treatment. To be administered per Policy [id number].Indications:Encounter for immunization,ESRD (end stage renal disease) ([facility]) Given 12/09/2022 7:10 EST 9,000 Units documented in this encounter Orders Dialysis Count Last Ordered Date First Orde red Date HEMODIALYSIS 1 12/09/2022 documented in this encounter Care Teams Adult Secondary Education Instructor Relationship Specialty Start Date End Date Adeola Villegas APRN [address] [place] [address] PCP - General 10/12/16 07/06/23 documented as of this encounter
--- OUTSIDE RECORDS SUMMARY | 2024-12-05 12:31 | XMS_ITS | Encounter Summary ---
Author Organization [facility] Address [address] [place] [address] Care Team Providers Care Infantry Operations Specialist Name Role Phone Adeola Villegas APRN Primary Care Provider [phone] Encounter Details Date Type Department Care Team (Late st Contact Info) Description 12/07/2022 Documentation Visit [facility] [address] [place] [address] Alexa Estrada LICSW [address] [place] [address] Social History Tobacco Use Types Packs/Day Years Used Date Smoking Tobacco: Every Day Cigarettes Smokeless Tobacco: Never Sex and Gender Information Value Date Recorded Sex Assigned at Not on file Legal Sex Male 18:49 EST Gender Identity Male 07/07/2023 14:11 EDT Sexual Orientation Not on file documented as of this encounter Progress Notes * Alexa Estrada LICSW - 12/07/2022 1124 EST SHANNON note: SW followed up with pt on applications that SW gave him a couple of weeks ago for [facility], Medicaid, and [facility] PAP. Pt states he will bring it in on Wednesday to review with this SW. SW will follow up onWednesday. documented in this encounter Plan of Treatment Upcoming Encounters Date Type Department Care Team (Late st Contact Info) Description 12/06/2024 6:45 EST Treatment [facility] [address] [place], [place] [address] Carlota Jin MD 1 [facility], [facility] 2 [place] [phone] 12/08/2024 6:45 EST Treatment [facility] [place] [address] [place], [place] [phone] Carlota Jin MD 1 [facility], [address] [phone] 12/11/2024 6:45 EST Treatment [facility] [place] [address] [place], [place] [phone] Carlota Jin MD 1 [facility], [address] [phone] 12/13/2024 6:45 EST Treatment [facility] [place] [address] [place], [place] [phone] Carlota Jin MD [address] [phone] 12/15/2024 6:45 EST Treatment [facility] [address] [place], [place] [phone] Carlota Jin MD [address] [phone] 12/18/2024 6:45 EST Treatment [facility] [place] [address] [place], [place] [phone] Carlota Jin MD 1 [facility], [facility] 2 [place] [phone] 12/20/2024 6:45 EST Treatment [facility] [place] [address] [place], [place] [phone] Carlota Jin MD 1 [facility], [facility] 2 [place] [phone] 12/22/2024 6:45 EST Treatment [facility] [place] [address] [place], [place] [phone] Carlota Jin MD 1 [facility], [facility] 2 [place] [phone] 12/25/2024 6:45 EST Treatment [facility] [place] [address] [place] [address] Carlota Jin MD 1 [facility], [facility] 2 [place] [phone] 12/27/2024 6:45 EST Treatment [facility] [place] [address] [place], [place] [phone] Carlota Jin MD 1 [facility], [facility] 2 [place] [phone] 12/29/2024 6:45 EST Treatment [facility] [place] [address] [place], [place] [phone] Carlota Jin MD 1 [facility], [facility] 2 [place] [phone] 01/01/2025 6:45 EDT Treatment [facility] [place] [address] [place], [place] [address] Carlota Jin MD 1 [facility], [facility] 2 [place] [phone] 01/03/2025 6:45 EDT Treatment [facility] [place] [address] [place], [place] [phone] Carlota Jin MD 1 [facility], [facility] 2 [place] [phone] 01/05/2025 6:45 EDT Treatment [facility] [place] [address] [place], [place] [phone] Carlota Jin MD 1 [facility], [address] [phone] 01/08/2025 6:45 EDT Treatment [facility] [place] [address] [place], [place] [phone] Carlota Jin MD [address] [phone] 01/10/2025 6:45 EDT Treatment [facility] [place] [address] [place], [place] [phone] Carlota Jin MD [address] [phone] 01/12/2025 6:45 EDT Treatment [facility] [place] [address] [place], [place] [phone] Carlota Jin MD 1 [facility] 2 [place] [phone] 01/15/2025 6:45 EDT Treatment [facility] [place] [address] [place], [place] [phone] Carlota Jin MD 1 [facility], [facility] 2 [place] [phone] 01/17/2025 6:45 EDT Treatment [facility] [place] [address] [place], [place] [phone] Carlota Jin MD 1 [facility], [facility] 2 [place] [phone] 01/19/2025 6:45 EDT Treatment [facility] [place] [address] [place], [place] [phone] Carlota Jin MD 1 [facility], [facility] 2 [place] [phone] 01/22/2025 6:45 EDT Treatment [facility] [place] [address] [place], [place] [address] Carlota Jin MD 1 [facility], [facility] 2 [place] [phone] 01/24/2025 6:45 EDT Treatment [facility] [place] [address] [place], [place] [phone] Carlota Jin MD 1 [facility], [facility] 2 [place] [phone] 01/26/2025 6:45 EDT Treatment [facility] [place] [address] [place], [place] [phone] Carlota Jin MD 1 [facility], [facility] 2 [place] [phone] 01/29/2025 6:45 EDT Treatment [facility] [place] [address] [place], [place] [phone] Carlota Jin MD [address] [address], [address] [phone] 01/31/2025 6:45 EDT Treatment [facility] [place] [address] [place], [place] [phone] Carlota Jin MD [address] [address], [address] [phone] 02/02/2025 6:45 EDT Treatment [facility] [place] [address] [place], [place] [phone] Carlota Jin MD [address] [address], [facility] 2 [place] [phone] 02/05/2025 6:45 EDT Treatment [facility] [place] [address] [place], [place] [phone] Carlota Jin MD 1 [facility], [facility] 2 [place] [phone] 02/07/2025 6:45 EDT Treatment [facility] [place] [address] [place], [place] [phone] Carlota Jin MD 1 [facility], [facility] 2 [place] [phone] 02/09/2025 6:45 EDT Treatment [facility] [place] [address] [place], [place] [address] Carlota Jin MD 1 [facility], [facility] 2 [place] [phone] 02/12/2025 6:45 EDT Treatment [facility] [place] [address] [place] [address] Carlota Jin MD 1 [facility], [facility] 2 [place] [phone] 02/14/2025 6:45 EDT Treatment [facility] [place] [address] [place], [place] [address] [phone] Carlota Jin MD 1 [facility], [facility] 2 [place] [phone] 02/16/2025 6:45 EDT Treatment [facility] [place] [address] [place] [address] Carlota Jin MD 1 [facility], [facility] 2 [place] [phone] 02/19/2025 6:45 EDT Treatment [facility] [place] [address] [place], [place] [phone] Carlota Jin MD 1 [facility], [facility] 2 [place] [phone] 02/21/2025 6:45 EDT Treatment [facility] [address] [place] [address] Carlota Jin MD 1 [facility], Level [address] [place] [phone] documented as of this encounter Visit Diagnoses Not on filedocumented in this encounter Care Teams Infantry Operations Specialist Relationship Specialty Start Date End Date Adeola Villegas APRN [address] [facility] 1 [place] [address] PCP - General 10/12/16 07/06/23 documented as of this encounter
--- OUTSIDE RECORDS SUMMARY | 2024-12-05 12:31 | XMS_ITS | Encounter Summary ---
Author Organization [facility] Address [address] [place] [address] Care Team Providers Care Deep Sea Diver Name Role Phone Adeola Villegas APRN Primary Care Provider [phone] Encounter Details Date Type Department Care Team (Late st Contact Info) Description 11/27/2022 7:15 EST Treatment [facility] [address] [place], [place] [id number] Carlota Jin MD 1 [facility], Level [address] [place] [address] ESRD (end stage renal disease) ([facility]) (Primary Dx) Social History Tobacco Use [...] - Temperature - - Respiratory Rate 16 11/27/2022 0657 EST Oxygen Saturation - - Inhaled Oxygen Concentration - - Weight 90.5 kg (199 lb 8.3 oz) 11/27/[address] Height - - Body Mass Index - - documented in this encounter Miscellaneous Notes * Flowsheet Note - Melissa Crespo RN - 11/27/2022 1347 EST 11/27/22 1109 Post-Hemodialysis Assessment Total Blood Processed (L) 90.6 Liters Dialyzer Clearance Lightly streaked Treatment UFR (ml:kg:hr) 8.21 ml:kg:hr Fluid Removed (L) 3 L Post-Dialysis Scale Weight 87.6 kg (193 lb 2 oz) Wheelchair Weight 0 kg (0 lb) Prosthesis Weight 0 kg (0 lb) Post-Treatment Weight (kg) 87.6 Treatment Weight Change (kg) 2.9 kg Day Target Weight (kg) 88 Post Sitting/Lying BP 164/82 Post Sitting/Lying pulse 71 Post Standing BP 142/77 Post Standing Pulse 81 Temp 36.3 ??C (97.3 ??F) Temp src Temporal Post access assessment AVF/AFG Hemostasis achieved Yes Orientation Alert and Oriented x3 Yes Cooperative Yes Disoriented No Discharge Ambulation Methods Ambulatory without assistance Wrap up items Patient Response to Treatment Tolerated tx. Removed 3000 UF goal. Stable upon DC from unit. Comments No issues during tx, No concerns voiced post tx. 11/27/22 1109 Post-Hemodialysis Assessment Total Blood Processed (L) 90.6 Liters Dialyzer Clearance Lightly streaked Treatment UFR (ml:kg:hr) 8.21 ml:kg:hr Fluid Removed (L) 3 L Post-Dialysis Scale Weight 87.6 kg (193 lb 2 oz) Wheelchair Weight 0 kg (0 lb) Prosthesis Weight 0 kg (0 lb) Post-Treatment Weight (kg) 87.6 Treatment Weight Change (kg) 2.9 kg Day Target Weight (kg) 88 Post Sitting/Lying BP 164/82 Post Sitting/Lying pulse 71 Post Standing BP 142/77 Post Standing Pulse 81 Temp 36.3 ??C (97.3 ??F) Temp src [...] [facility] [place] [address] [place], [place] [id number] Carlota Jin MD 1 [facility], [facility] [address] [place] [phone] 12/08/2024 6:45 EST Treatment [facility] [place] [address] [place], [place] [id number] Carlota Jin MD 1 [facility], [facility] 2 [place] [phone] 12/11/2024 6:45 EST Treatment [facility] [place] [address] [place], [place] [id number] Carlota Jin MD 1 [facility], [facility] [address] [place] [phone] 12/13/2024 6:45 EST Treatment [facility] - [place] [address] [place], [place] [id number] Carlota Jin MD 1 [facility], [address] [phone] 12/15/2024 6:45 EST Treatment [facility] - [place] [address] [place], [place] [id number] Carlota Jin MD 1 [facility], [facility] 2 [place] [phone] 12/18/2024 6:45 EST Treatment [facility] - [place] [address] [place], [place] [id number] Carlota Jin MD 1 [facility] 2 [place] [phone] 12/20/2024 6:45 EST Treatment [facility] - [place] [address] [place], [place] [id number] Carlota Jin MD 1 [facility], [facility] 2 [place] [phone] 12/22/2024 6:45 EST Treatment [facility] - [place] [address] [place], [place] [id number] Carlota Jin MD 1 [facility], [facility] 2 [place] [phone] 12/25/2024 6:45 EST Treatment [facility] - [place] [address] [place], [place] [id number] Carlota Jin MD 1 [facility], [facility] 2 [place] [phone] 12/27/2024 6:45 EST Treatment [facility] [address] [place], [place] [id number] Carlota Jin MD 1 [facility], [facility] 2 [place] [phone] 12/29/2024 6:45 EST Treatment [facility] [address] [place], [place] [id number] Carlota Jin MD 1 [facility], [facility] 2 [place] [phone] 01/01/2025 6:45 EDT Treatment [facility] - [place] [address] [place], [place] [id number] Carlota Jin MD 1 [facility], [address] [phone] 01/03/2025 6:45 EDT Treatment [facility] - [place] [address] [place], [place] [id number] Carlota Jin MD 1 [facility], [address] [phone] 01/05/2025 6:45 EDT Treatment [facility] - [place] [address] [place], [place] [id number] Carlota Jin MD 1 [facility], [address] [phone] 01/08/2025 6:45 EDT Treatment [facility] - [place] [address] [place], [place] [phone] Carlota Jin MD 1 [facility], [address] [phone] 01/10/2025 6:45 EDT Treatment [facility] - [place] [address] [place], [place] [id number] Carlota Jin MD [address] [place] [address], [address] [phone] 01/12/2025 6:45 EDT Treatment [facility] - [place] [address] [place], [place] [id number] Carlota Jin MD 1 [facility], Level [address] [place] [phone] 01/15/2025 6:45 EDT Treatment [facility] - [place] [address] [place], [place] [id number] Carlota Jin MD 1 [facility], [facility] 2 [place] [phone] 01/17/2025 6:45 EDT Treatment [facility] - [place] [address] [place], [place] [id number] Carlota Jin MD 1 [facility], [facility] 2 [place] [phone] 01/19/2025 6:45 EDT Treatment [facility] - [place] [address] [place], [place] [id number] Carlota Jin MD 1 [facility], [facility] 2 [place] [phone] 01/22/2025 6:45 EDT Treatment [facility] [address] [place], [place] [phone] Carlota Jin MD 1 [facility], [facility] 2 [place] [phone] 01/24/2025 6:45 EDT Treatment [facility] [address] [place], [place] [id number] Carlota Jin MD 1 [facility], [facility] 2 [place] [phone] 01/26/2025 6:45 EDT Treatment [facility] - [place] [address] [place], [place] [id number] Carlota Jin MD 1 [facility], [facility] [address] [place] [phone] 01/29/2025 6:45 EDT Treatment [facility] - [place] [address] [place], [place] [id number] Carlota Jin MD 1 [facility], [facility] 2 [place] [phone] 01/31/2025 6:45 EDT Treatment [facility] - [place] [address] [place], [place] [id number] Carlota Jin MD 1 [facility], [facility] 2 [place] [phone] 02/02/2025 6:45 EDT Treatment [facility] - [place] [address] [place], [place] [id number] Carlota Jin MD 1 [facility], [facility] [address] [place] [phone] 02/05/2025 6:45 EDT Treatment [facility] - [place] [address] [place], [place] [phone] Carlota Jin MD 1 [facility], [facility] [address] [place] [phone] 02/07/2025 6:45 EDT Treatment [facility] - [place] [address] [place], [place] [id number] Carlota Jin MD 1 [facility], [facility] [address] [place] [phone] 02/09/2025 6:45 EDT Treatment [facility] - [place] [address] [place], [place] [phone] Carlota Jin MD 1 [facility], [facility] 2 [place] [phone] 02/12/2025 6:45 EDT Treatment [facility] - [place] [address] [place] [address] Carlota Jin MD 1 [facility], [address] [phone] 02/14/2025 6:45 EDT Treatment [facility] - [place] [address] [place], [place] [phone] Carlota Jin MD 1 [facility], [address] [phone] 02/16/2025 6:45 EDT Treatment [facility] - [place] [address] [place] [address] Carlota Jin MD 1 [facility], [facility] 2 [place] [phone] 02/19/2025 6:45 EDT Treatment [facility] - [place] [address] [place], [place] [phone] Carlota Jin MD 1 [facility], [facility] [address] [place] [phone] 02/21/2025 6:45 EDT Treatment [facility] - [place] [address] [place] [address] Carlota Jin MD 1 [facility], Level [address] [place] [phone] documented as of this encounter Procedures Procedure Name Priority Date/Time Associated Diagnosis Comments HEMODIALYSIS Routine 11/27/2022 6:57 EST ESRD (end stage renal disease) ([facility]) documented in this encounter Visit Diagnoses Diagnosis ESRD (end stage renal disease) ([facility])- Primary End stage renal disease documented in this encounter Administered Medications Inactive Administered Medications - up to 3 most recent administrations Medication Order MAR Action Action Date Dose Rate Site epoetin ken (EPOGEN) 20,000 unit/2 mL injection 500 Units 500 Units, intravenous, ONCE IN DIALYSIS, 1 dose, On Wed11/27/22 at 0715, Routine, DialysisIndications:ESRD (end stage renal disease) ([facility]) Given 11/27/2022 7:45 EST 500 Units heparin injection 9,000 Units 9,000 Units, intravenous, ONCE IN DIALYSIS, 1 dose, On Wed11/27/22 at 0715, Routine, Dialysis, Now x1 bolus 4500 units to be given at the beginning of dialysis 1500 units/hour to be given over the course of dialysis (9000 units total). Stop 1 hour prior to end of treatment. To be administered per Policy [id number].Indications:ESRD (end stage renal disease) ([facility]) Given 11/27/2022 7:06 EST 9,000 Units documented in this encounter Orders Dialysis Count Last Ordered Date First Orde red Date HEMODIALYSIS 1 11/27/2022 documented in this encounter Care Teams Deep Sea Diver Relationship Specialty Start Date End Date Adeola Villegas APRN Mohit [address]ERSON DR [facility] [address] [place] [address] PCP - General 10/12/16 07/06/23 documented as of this encounter
--- OUTSIDE RECORDS SUMMARY | 2024-12-05 12:31 | XMS_ITS | Encounter Summary ---
Author Organization [facility] Address [address] [place] [address] Care Team Providers Care Civil Technician Name Role Phone Adeola Villegas APRN Primary Care Provider [phone] Encounter Details Date Type Department Care Team (Late Contact Info) Description 12/09/2022 Orders Only [facility] [address] [place] [address] Shelley Eden, RD [address] [place] [address] Social History Tobacco Use Types Packs/Day Years [...] 6:45 EST Treatment [facility] [address] [place] [id number] Carlota Jin MD 1 [facility], Level [address] [place] [phone] 12/08/2024 6:45 EST Treatment [facility] [address] [place] [id number] Carlota Jin MD 1 [facility], [facility] [address] [place] [phone] 12/11/2024 6:45 EST Treatment [facility] [address] [place], [place] [id number] Carlota Jin MD [address] [facility] [address] [place] [phone] 12/13/2024 6:45 EST Treatment [facility] [place] [address] [place], [place] [id number] Carlota Jin MD [address] [facility], [facility] [address] [place] [phone] 12/15/2024 6:45 EST Treatment [facility] [address] [place], [place] [id number] Carlota Jin MD 1 [facility], [facility] [address] [place] [phone] 12/18/2024 6:45 EST Treatment [facility] [address] [place], [place] [phone] Carlota Jin MD [address] [facility], [facility] [address] [place] [phone] 12/20/2024 6:45 EST Treatment [facility] [address] [place], [place] [phone] Carlota Jin MD 1 [facility], [facility] [address] [place] [phone] 12/22/2024 6:45 EST Treatment [facility] [address] [place], [place] [id number] Carlota Jin MD 1 [facility], [facility] [address] [place] [phone] 12/25/2024 6:45 EST Treatment [facility] [address] [place], [place] [id number] Carlota Jin MD 1 [facility], [facility] [address] [place] [phone] 12/27/2024 6:45 EST Treatment [facility] [address] [place], [place] [id number] Carlota Jin MD 1 [facility], [facility] [address] [place] [phone] 12/29/2024 6:45 EST Treatment [facility] [address] [place], [place] [id number] Carlota Jin MD 1 [facility], [facility] [address] [place] [phone] 01/01/2025 6:45 EDT Treatment [facility] [address] [place], [place] [id number] Carlota Jin MD 1 [facility], [facility] [address] [place] [phone] 01/03/2025 6:45 EDT Treatment [facility] [address] [place], [place] [id number] Carlota Jin MD [address] [facility], [facility] [address] [place] [phone] 01/05/2025 6:45 EDT Treatment [facility] [address] [place], [place] [address] Carlota Jin MD [address] [facility] [address] [place] [phone] 01/08/2025 6:45 EDT Treatment [facility] [address] [place], [place] [id number] Carlota Jin MD 1 [facility], [facility] [address] [place] [phone] 01/10/2025 6:45 EDT Treatment [facility] [address] [place], [place] [address] Carlota Jin MD [address] [facility] [address] [place] [phone] 01/12/2025 6:45 EDT Treatment [facility] [address] [place] [address] [address] MD [address] [facility] [address] [place] [phone] 01/15/2025 6:45 EDT Treatment [facility] [address] [place], [place] [address] Carlota Jin MD [address] [facility] [address] [place] [phone] 01/17/2025 6:45 EDT Treatment [facility] [address] [place], [place] [id number] Carlota Jin MD 1 [facility], [facility] [address] [place] [phone] 01/19/2025 6:45 EDT Treatment [facility] [place] [address] [place], [place] [id number] Carlota Jin MD 1 [facility], [facility] [address] [place] [phone] 01/22/2025 6:45 EDT Treatment [facility] [address] [place], [place] [id number] Carlota Jin MD 1 [facility], [facility] [address] [place] [phone] 01/24/2025 6:45 EDT Treatment [facility] [address] [place], [place] [id number] Carlota Jin MD 1 [facility], [facility] [address] [place] [phone] 01/26/2025 6:45 EDT Treatment [facility] [place] [address] [place], [place] [id number] Carlota Jin MD 1 [facility], [facility] [address] [place] [phone] 01/29/2025 6:45 EDT Treatment [facility] [address] [place], [place] [id number] Carlota Jin MD [address] [facility] [address] [place] [phone] 01/31/2025 6:45 EDT Treatment [facility] [address] [place], [place] [id number] Carlota Jin MD [address] [facility], [facility] [address] [place] [phone] 02/02/2025 6:45 EDT Treatment [facility] [address] [place], [place] [id number] Carlota Jin MD 1 [facility], [facility] [address] [place] [phone] 02/05/2025 6:45 EDT Treatment [facility] [address] [place], [place] [id number] Carlota Jin MD 1 [facility], [facility] [address] [place] [phone] 02/07/2025 6:45 EDT Treatment [facility] [address] [place], [place] [id number] Carlota Jin MD 1 [facility], [facility] [address] [place] [phone] 02/09/2025 6:45 EDT Treatment [facility] [address] [place], [place] [id number] Carlota Jin MD [address] [facility] [address] [place] [phone] 02/12/2025 6:45 EDT Treatment [facility] [address] [place], [place] [id number] Carlota Jin MD 1 [facility], [address] [phone] 02/14/2025 6:45 EDT Treatment [facility] [address] [place], [place] [id number] Carlota Jin MD 1 [facility], [address] [phone] 02/16/2025 6:45 EDT Treatment [facility] [address] [place], [place] [id number] Carlota Jin MD [address] [place] [phone] 02/19/2025 6:45 EDT Treatment [facility] [address] [place], [place] [id number] Carlota Jin MD [address] [phone] 02/21/2025 6:45 EDT Treatment [facility] [address] [place], [place] [id number] Carlota Jin MD 1 [facility], [address] [phone] documented as of this encounter Visit Diagnoses Not on filedocumented in this encounter Care Teams Civil Technician Relationship Specialty Start Date End Date Adeola Villegas APRN Moh[address] [place] [address] PCP - General 10/12/16 07/06/23 documented as of this encounter
--- OUTSIDE RECORDS SUMMARY | 2024-12-05 12:32 | XMS_ITS | Encounter Summary ---
Author Organization [facility] Address [facility] [place] [address] Care Team Providers Care Product Development Scientist Name Role Phone Ismael Albarran Primary Care Provider + Encounter Details Date Type Department Care Team (Late st Contact Info) Description 11/01/2024 Transcribe Orders eD Incoming Referrals [phone] Ismael Albarran PA [address] [place] [address] [place] [address] Social History Tobacco Use Types Packs/Day Years Used Date Smoking Tobacco: Every Day Cigarettes Last attempted to quit: 12/26/2018 Smokeless Tobacco: Never Comments:smoking a few a day Alcohol Use Standard Drinks/Week Comments No 0 (1 standard drink = 0.6 oz pur e alcohol) [facility] Utilities Answer Date Recorded In the past 12 months has e electric, gas, oil, or water company threatened to shut off services in your home? No 04/21/2024 Hunger Vital Sign Answer Date Recorded Within the past 12 months, y ou worried that your food would run out before you got the money to buy more. Never true 04/21/20 24 Within the past 12 months, t he food you bought just didn't last and you didn't have money to get more. Never true 04/21/2024 PRAPARE - Transportation Answer Date Re corded In the past 12 months, has l ack of transportation kept you from medical appointments or from getting medications? No 03/26 In the past 12 months, has l ack of transportation kept you from meetings, work, or from getting things needed for daily living? No 04/21/2024 Housing Stability Vital Sign Answer Lon e Recorded In the last 12 months, was t here a time when you were not able to pay the mortgage or rent on time? No 02/20/2024 In the last 12 months, how many places have you lived? 1 02/20/2024 In the last 12 months, was t here a time when you did not have a steady place to sleep or slept in a half-way (including now)? No 02/20/2024 Housing Stability Vital Sign Answer Lon e Recorded In the last 12 months, was t here a time when you were not able to pay the mortgage or rent on time? No 04/21/2024 In the past 12 months, how m any times have you moved where you were living? 1 04/21/2024 At any time in the past 12 m [facility], were you homeless or living in a half-way (including now)? No 04/21/2024 DH IPV Inpatient Questions Answer Date Recorded Does Anyone Try to Keep You From Having Contact with Others or Doing Things Outside Your Home? no 04/28/2024 Feels Threatened by Someone no 02/2024 Feels Unsafe at Home or Work/School no 04/28/2024 Physical Signs of Abuse Present no 04/28/2024 Sex and Gender Information Value Date Recorded Sex Assigned at Not on file Gender Identity Not on file Sexual Orientation Not on file documented as of this encounter Plan of Treatment Not on file documented as of this encounter Visit Diagnoses Not on filedocumented in this encounter Care Teams Product Development Scientist Relationship Specialty Start Date End Date Ismael [place] [address] PCP - General Internal Medicine 05/16/24 documented as of this encounter
--- OUTSIDE RECORDS SUMMARY | 2024-12-05 12:32 | XMS_ITS | Encounter Summary ---
Author Organization [facility] Address [address] [place] [address] Care Team Providers Care Ornamental Plasterer Helper Name Role Phone Adeola Villegas APRN Primary Care Provider [phone] Reason for Visit * Reason Onset Date Comments Dialysis 08/31/2022 Encounter Details Date Type Department Care Team (Late Contact Info) Description 08/31/2022 Telephone [facility] [place] [address] [place] [phone] Penny, MD [facility] Social History Tobacco Use Types Packs/Day Years Used Date Smoking Tobacco: Every Day Cigarettes Smokeless Tobacco: Never Sex and Gender Information Value Date Recorded Sex Assigned at Not on file Legal Sex Male 18:49 EST Gender Identity Male 07/07/2023 14:11 EDT Sexual Orientation Not on file documented as of this encounter Miscellaneous Notes * Telephone Encounter - Melissa Goff - 08/31/2022 0953 EST Patient wishes to transfer to one of our dialysis units. Current unit: [facility] Desired unit: [facility] Toño Transfer packet faxed to current home unit. documented in this encounter Plan of Treatment Upcoming Encounters Date Type Department Care Team (Late Contact Info) Description 12/06/2024 6:45 EST Treatment [facility] [place] [address] [place] [phone] Carlota Jin MD [address] [place], [place] [address]ab, [facility] [address] [place] [phone] 12/08/2024 6:45 EST Treatment [facility] [place] [address] [place], [place] [phone] [facility], [facility] [address] [place] [phone] 12/11/2024 6:45 EST Treatment [facility] [place] [address] [place], [place] [phone] Carlota Jin MD 1 [facility], [facility] [address] [place] [phone] 12/13/2024 6:45 EST Treatment [facility] - [place] [address] [place], [place] [phone] Carlota Jin MD 1 [facility], [facility] [address] [place] [phone] 12/15/2024 6:45 EST Treatment [facility] [address] [place], [place] [phone] Carlota Jin MD 1 [facility], [facility] [address] [place] [phone] 12/18/2024 6:45 EST Treatment [facility] [address] [place], [place] [phone] Carlota Jin MD 1 [facility], [facility] [address] [place] [phone] 12/20/2024 6:45 EST Treatment [facility] - [place] [address] [place], [place] [phone] Carlota Jin MD 1 [facility], [facility] [address] [place] [phone] 12/22/2024 6:45 EST Treatment [facility] [place] [address] [place], [place] [phone] Carlota Jin MD 1 [facility], [facility] [address] [place] [phone] 12/25/2024 6:45 EST Treatment [facility] [place] [address] [place], [place] [phone] Carlota Jin MD 1 [facility], [facility] [address] [place] [phone] 12/27/2024 6:45 EST Treatment [facility] - [place] [address] [place], [place] [phone] Carlota Jin MD 1 [facility], [facility] [address] [place] [phone] 12/29/2024 6:45 EST Treatment [facility] [place] [address] [place], [place] [phone] Carlota Jin MD 1 [facility], [facility] [address] [place] [phone] 01/01/2025 6:45 EDT Treatment [facility] [place] [address] [place], [place] [phone] Carlota Jin MD 1 [facility], Level [address] [place] [phone] 01/03/2025 6:45 EDT Treatment [facility] [place] [address] [place], [place] [address] Carlota Jin MD 1 [facility], [facility] [address] [place] [phone] 01/05/2025 6:45 EDT Treatment [facility] [place] [address] [place], [place] [phone] Carlota Jin MD 1 [facility], [facility] [address] [place] [phone] 01/08/2025 6:45 EDT Treatment [facility] [place] [address] [place], [place] [address] Carlota Jin MD 1 [facility], [facility] [address] [place] [phone] 01/10/2025 6:45 EDT Treatment [facility] - [place] [address] [place] [address] Carlota Jin MD 1 [facility], [facility] [address] [place] [phone] 01/12/2025 6:45 EDT Treatment [facility] [place] [address] [place], [place] [address] Carlota Jin MD 1 [facility], [facility] [address] [place] [phone] 01/15/2025 6:45 EDT Treatment [facility] [place] [address] [place], [place] [phone] Carlota Jin MD 1 [facility], [facility] [address] [place] [phone] 01/17/2025 6:45 EDT Treatment [facility] [place] [address] [place], [place] [phone] Carlota Jin MD 1 [facility], [facility] [address] [place] [phone] 01/19/2025 6:45 EDT Treatment [facility] - [place] [address] [place], [place] [phone] Carlota Jin MD [address] [place] [address], [facility] [address] [place] [phone] 01/22/2025 6:45 EDT Treatment [facility] - [place] [address] [place], [place] [phone] Carlota Jin MD [address] [place] [address], [facility] [address] [place] [phone] 01/24/2025 6:45 EDT Treatment [facility] - [place] [address] [place], [place] [phone] Carlota Jin MD 1 [facility], [facility] [address] [place] [phone] 01/26/2025 6:45 EDT Treatment [facility] [place] [address] [place], [place] [phone] Carlota Jin MD 1 [facility], [facility] [address] [place] [phone] 01/29/2025 6:45 EDT Treatment [facility] [place] [address] [place], [place] [address] Carlota Jin MD 1 [facility], [facility] [address] [place] [phone] 01/31/2025 6:45 EDT Treatment [facility] [place] [address] [place], [place] [phone] Carlota Jin MD 1 [facility], [facility] [address] [place] [phone] 02/02/2025 6:45 EDT Treatment [facility] - [place] [address] [place], [place] [phone] Carlota Jin MD 1 [facility], [facility] [address] [place] [phone] 02/05/2025 6:45 EDT Treatment [facility] [address] [place], [place] [phone] Carlota Jin MD 1 [facility], [facility] [address] [place] [phone] 02/07/2025 6:45 EDT Treatment [facility] [place] [address] [place], [place] [phone] Carlota Jin MD 1 [facility], [facility] [address] [place] [phone] 02/09/2025 6:45 EDT Treatment [facility] [place] [address] [place], [place] [phone] Carlota Jin MD 1 [facility], [facility] [address] [place] [phone] 02/12/2025 6:45 EDT Treatment [facility] - [place] [address] [place], [place] [phone] Carlota Jin MD 1 [facility], [facility] [address] [place] [phone] 02/14/2025 6:45 EDT Treatment [facility] - [place] [address] [place], [place] [phone] Carlota Jin MD 1 [facility], [facility] [address] [place] [phone] 02/16/2025 6:45 EDT Treatment [facility] - [place] [address] [place], [place] [address] Carlota Jin MD 1 [facility], [facility] [address] [place] [phone] 02/19/2025 6:45 EDT Treatment [facility] - [place] [address] [place], [place] [phone] Carlota Jin MD 1 [facility], [facility] [address] [place] [phone] 02/21/2025 6:45 EDT Treatment [facility] - [place] [address] [place] [address] Carlota Jin MD 1 [facility], Level [address] [place] [phone] documented as of this encounter Visit Diagnoses Not on filedocumented in this encounter Care Teams Ornamental Plasterer Helper Relationship Specialty Start Date End Date Adeola Villegas APRN Mohit [address] [facility] [address] [place] [address] PCP - General 10/12/16 07/06/23 documented as of this encounter
--- OUTSIDE RECORDS SUMMARY | 2024-12-05 12:32 | XMS_ITS | Encounter Summary ---
[place] [address] Care Team Providers Care Cook Apprentice Name Role Phone Ismael Albarran Primary Care Provider + Reason for Referral * Diagnostic Test (Routine) - Closed Specialty Diagnoses / Procedures Referred By Nader gardiner Referred To Contact Gastroenterology Diagnoses Dysphagia, unspecified type HREM - dysphagia Procedures High Resolution Esophageal Manometry Agustin Cabrera MD [address] [place] [address] [address] [place] [address] [facility] [place] [address] Referral ID Status Reason Start Date Expiration Date V isits Requested Visits Authorized [id number] Closed Test Only 11/06/2024 11/06/2025 1 1 Encounter Details Date Type Department Care Team (Late st Contact Info) Description 11/06/2024 Transcribe Orders eD Incoming Referrals [phone] Agustin Cabrera MD [address] [place] [address] [address] [place], [place] [id number] Dysphagia, unspecified type Social History Tobacco Use Types Packs/Day Years Used Date Smoking Tobacco: Every Day Cigarettes Last attempted to quit: 12/26/2018 Smokeless Tobacco: Never Comments:smoking a few a day Alcohol Use Standard Drinks/Week Comments No 0 (1 standard drink = 0.6 oz pur e alcohol) [facility] Utilities Answer Date Recorded In the past 12 months has th e [employer], gas, oil, or water [employer] threatened to shut off services in your [...] place to sleep or slept in a custodial (including now)? No 02/20/2024 Housing Stability Vital [...] living in a custodial (including now)? No 04/21/2024 IPV Inpatient Questions Answer Date Recorded Does [...] as of this encounter Plan of Treatment Scheduled Orders Name Type Priority Associated Diagnoses Orde r Schedule High Resolution Esophageal Manometry GI Routine Dysphagia, unspecified type Expected: 11/06/2024, Expires: 05/06/2026 documented as of this encounter Visit Diagnoses Diagnosis Dysphagia, unspecified type documented in this encounter Care Teams Cook Apprentice Relationship Specialty Start Date End Date Ismael Albarran PA [address] [place] [address] PCP - General Internal Medicine 05/16/24 documented as of this encounter
--- OUTSIDE RECORDS SUMMARY | 2024-12-05 12:32 | XMS_ITS | Clinical Summary ---
Author Organization [facility] Address [facility] [address] Care Team Providers Care Transmission Superintendent Name Role Phone Ismael Albarran Primary Care Provider + Allergies Active Allergy Reactions Criticality Noted Date Comments Clindamycin 07/19/2014 Swelling. Gabapentin 07/19/2014 swelling Sertraline 04/19/2019 Other reaction(s): Unsure Medications Medication Sig Dispensed Refills Start Date End Date Status acetaminophen (Tylenol) 325 mg tablet Take 3 tablets by mouth every 6 hours. 30 tablet 1 03/14/2024 Active amLODIPine (Norvasc) 10 mg tabletIndications: CKD (chronic kidney disease) stage 4, GFR 15-29 ml/min Take 1 tablet by mouth daily. 90 tablet 3 03/14/2024 Active aspirin 81 mg chewable tablet Take 81 mg by mouth daily. 30 tablet 3 03/14/2024 Active atorvastatin (Lipitor) 40 mg tablet Take 1 tablet by mouth every evening. 90 tablet 3 03/14/2024 Active carvediloL (Coreg) 12.5 mg tabletIndications: ESRD (end stage renal disease) Take 1 tablet by mouth 2 times daily (with meals). 60 tablet 11 03/14/2024 Active cholecalciferoL (Vitamin D3) 1,000 unit tablet Take 1 tablet by mouth daily. 90 tablet 3 03/14/2024 Active dilTIAZem CD (Cardizem CD) 120 mg CD (ER) 24 hr casule Take 1 capsule by mouth daily. 30 capsule 03/14/2024 Active insulin lispro (HumaLOG) 100 unit/mL Solution Inject 0-8 Units subcutaneously 3 times daily (with meals). 1 mL 12 03/14/2024 Active pantoprazole EC (Protonix) [address] tablet Take 1 tablet by mouth daily. 90 tablet 3 03/14/2024 Active pregabalin (Lyrica) 100 mg capsuleIndications :CKD (chronic kidney disease) stage 3, GFR 30-59 ml/min,Other specified diabetes mellitus with unspecified complications,Esse ntial hypertension with goal blood pressure less than 130/80,Hyperkalemi a Take 1 capsule by mouth 2 times daily. 60 capsule 03/14/2024 Active sevelamer (Renagel) 800 mg tabletIndications: ESRD (end stage renal disease) 2 tablets, 3 times a day with each meal 180 tablet 5 03/14/2024 Active apixaban (Eliquis) 5 mg tablet Take 1 tablet by mouth 2 times daily. 04/29/2024 Active HYDROmorphone (Dilaudid) 4 mg tablet Take 1 tablet by mouth every 4 hours as needed for Pain (for moderate pain 3-6 take one tablet, severe pain 7-10 take two tabs). 40 tablet 04/29/2024 Active Additional Information Patient not taking.Reported on 05/16/2024 tiZANidine (Zanaflex) 4 mg tablet Take 1 tablet by mouth every 8 hours as needed. 30 tablet 04/29/2024 Active senna-docusate (Pericolace) 8.6-50 mg Tablet Take 1 tablet by mouth daily. 60 tablet 11 04/29/2024 Active Additional Information Patient not taking.Reported on 05/16/2024 polyethylene glycoL (Miralax) 17 gram/dose Powder Take 17 g by mouth 2 times daily. 255 g 1 04/29/2024 Active Additional Information Patient not taking.Reported on 05/16/2024 lisinopriL (Zestril) 10 mg tablet Take 1 tablet by mouth daily. 90 tablet 3 04/29/2024 Active insulin glargine-yfgn (Semglee) 100 unit/mL Solution Inject 23 Units subcutaneously daily. 04/29/2024 Active Additional Information Patient not taking.Reported on 05/16/2024 insulin detemir U-100 (Levemir U-100 Insulin) 100 unit/mL Solution Inject subcutaneously. 12/19/2022 Active Active Problems Problem Noted Date Diagnosed Date Sepsis with encephalopathy without septic shock 04/28/2024 Non healing left heel wound 04/20/2024 Hypertensive urgency 04/11/2024 Critical ischemia of lower extremity 04/11/2024 Acute hypoxic respiratory failure 03/13/2024 Surgical wound present 03/09/2024 Status post below knee amputation, left 03/09/20 Diabetic foot ulcer 03/09/2024 Blister of second toe of right foot 03/09/2024 Postoperative anemia due to acute blood loss 12/2023 Non-healing open wound of heel 02/18/2024 TIA (transient ischemic attack) 07/19/2020 Right sided numbness 03/07/2019 CKD (chronic kidney disease) stage 5, GFR less than 15 ml/min 02/07/2019 Secondary hyperparathyroidism 10/26/2018 Hyperglycemia 08/10/2018 Pre-transplant evaluation for CKD (chronic kidne y disease) 06/02/2018 Essential hypertension 01/20/2017 Proteinuria 09/07/2016 Anemia of chronic renal failure, stage 4 (severe ) 07/19/2016 Essential hypertension with goal blood pressure less than 130/80 07/19/2016 Diabetes mellitus 07/19/2016 Hyperlipidemia 07/19/2016 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 08/16/2015 Overview (08/16/2015): L4-5 left Type II or unspecified type diabetes mellitus with neurological manifestations, uncontrolled(250.62) 07/19/2014 Leg cramps 07/19/2014 Cigarette smoker 07/19/2014 Unspecified hearing loss 07/19/2014 Resolved Problems Problem Noted Date Diagnosed Date Resolved Date Anemia 07/06/2018 10/26/2018 CKD (chronic kidney disease) stage 4, GFR 15-29 ml/min 01/20/2017 02/07/2019 CKD (chronic kidney disease) stage 3, GFR 30-59 ml/min 09/07/2016 08/12/2018 Elevated blood pressure 09/07/2016/0 11/2018 Hyperkalemia 07/19/2016 10/26/2018 Encounters Date Type Department Care Team Description 11/06/2024 Telephone [place] [address] Archie Marcum 11/06/2024 Transcribe Orders eD Incoming Referrals [phone] Agustin Cabrera MD Dysphagia, unspecified type 11/01/2024 Transcribe Orders eDH Incoming Referrals [phone] Ismael Albarran PA 10/11/2024 Transcribe Orders [facility] Incoming Referrals [phone] Ismael Albarran PA Disorder of pigmentation from Last 3 Months Immunizations Name Administration Dates Next Due Hepatitis B Adult (Engerix-B, Recombivax) 2017 Pneumococcal 23-Valent Polysaccharide (Pneumovax 23) 09/07/2011,04/15/2001 Td Adult (not absorbed) 10/30/1996 Tdap (Adacel, Boostrix) 05/31/2016 Family History Medical History Relation Comments Cancer Father Diabetes Mother Heart Disease Paternal Grandfather Diabetes Paternal Grandmother Relation Status Comments Brother 1 Alive Brother 2 Alive Brother 3 Alive Brother 4 Alive Father Mother Alive Paternal Grandfather Paternal Grandmother Sister 1 Alive Sister 2 Alive Social History Tobacco Use Types Packs/Day Years Used Date Smoking Tobacco: Every Day Cigarettes Last attempted to quit: 12/26/2018 Smokeless Tobacco: Never Tobacco Cessation:Ready to Q uit: Not Asked; Counseling Given: Not Answered Comments:smoking a few a day Alcohol Use Standard Drinks/Week Comments No 0 (1 standard drink = 0.6 oz pur e alcohol) [facility] Utilities Answer Date Recorded In the past 12 months has th e [employer], gas, oil, or water [employer] threatened to shut off services in your [...] place to sleep or slept in a intermediate (including now)? No 02/20/2024 Housing Stability Vital Sign Answer Lon e Recorded In the last 12 months, was t here a time when you were not able to pay the mortgage or rent on time? No 04/21/2024 In the past 12 months, how m any times have you moved where you were living? 1 04/21/2024 At any time in the past [facility], were you homeless or living in a intermediate (including now)? No 04/21/2024 DH IPV Inpatient [...] on file Sexual Orientation Not on file Last Filed Vital Signs Vital Sign Reading Time Taken Comments Blood Pressure 139/64 08/03/2024 12:45 PM EDT Pulse 63 08/03/2024 11:30 AM EDT Temperature 36.6 ??C (97.9 ??F) 08/03/2024 9:00 AM ED T Respiratory Rate 16 08/03/2024 12:45 PM EDT Oxygen Saturation 90% 08/03/2024 12:45 PM EDT Inhaled Oxygen Concentration - - Weight 86.2 kg (190 lb) 05/16/2024 3:27 PM EDT Height 175.3 cm (5' 9) 05/16/2024 3:27 PM EDT Body Mass Index 28.06 05/16/2024 3:27 PM EDT Plan of Treatment Health Maintenance Due Date Last Done Comments CT Colonography 1966 FIT DNA 1966 FIT 1966 Sigmoidoscopy 1966 DM Opthalmology Exam 1976 Pneumoccocal Vaccine: 50+ (2 of 2 - PCV) 09/07/2012 09/07/2011, 04/15/2001 DM Urine Microalbumin yearly 06/13/2016 06/13/2015 Zoster vaccine (1 of 2) 2016 Colonoscopy 09/26/2022 09/26/2019, 09/26/2019 Colorectal Cancer Screening 09/26/2022 DM Hemoglobin A1c 06/13/2024 03/13/2024, , 03/07/2019, Additional history exists Covid-19 Vaccine (1 - 2023-2 5 season) 2024 Influenza (Flu) vaccine (1 o f 1 - Influenza standard series) 06/25/2024 DM Creatinine yearly 05/16/2025 05/16/2024, 04/29/2024, 04/28/2024, Additional history exists Tetanus/Diphtheria/Pertussis Vaccines (2 - Td or Tdap) 05/31/2026 05/31/2016, 10/30/1996 Sigmoidoscopy (10 year) with FIT yearly 09/26/2029 09/26/2019, 09/26/2019 HIV screen Completed 06/02/2018 Hepatitis C Screening Completed 06/02/2018, 018 Procedures Procedure Name Priority Date/Time Associated Diagnosis Comments CREATININE STAT 05/16/2024 1:59 PM EDT CKD (chronic kidney disease) stage 5, GFR less than 15 ml/min Anemia of chronic renal failure, stage 4 (severe) HEMOGLOBIN A1C Routine 03/13/2024 3:30 AM EDT COLONOSCOPY Routine 09/26/2019 2:48 PM EST [place] SCRE[place] 4TH GENERATION [place] [place]PE RFORMABLE Routine 06/02/2018 3:22 PM EDT CKD (chronic kidney disease) stage 4, GFR 15-29 ml/min Pre-transplant evaluation for CKD (chronic kidney disease) Stage 4 chronic kidney disease Pre-transplant evaluation for kidney transplant HEPATITIS C ANTIBODY Routine 06/02/2018 3:22 PM EDT CKD (chronic kidney disease) stage 4, GFR 15-29 ml/min Pre-transplant evaluation for CKD (chronic kidney disease) Stage 4 chronic kidney disease Pre-transplant evaluation for kidney transplant U ALBUMIN/CRE RATIO Routine 06/13/2015 5 :22 PM EDT Anemia of chronic renal failure, stage 3 (moderate) from Last 3 Months or Most Recently Relevant to Health Maintenance Results * (ABNORMAL) Creatinine (05/16/2024 1:59 PM EDT) Creatinine 5.72(H) 0.80 - 1.50 mg/dL [facility] Est Glomerular Filtration Rate 11(L) >=60 mL/min/1. 73 m?? [facility] Comment: This patient's estimated GFR was calculated using the 2020 CKD-EPI equation. The estimated GFR can vary from the measured GFR by up to 30% in the absence of rapidly changing kidney function. Assessment of the estimated GFR is not appropriate when creatinine concentrations are rapidly changing. For clinical situations in which a more precise estimate of GFR is necessary, consider alternative methods of GFR estimation such as a 24-hour urine creatinine clearance. Assignment of CKD stage 1-5 for patients with an eGFR near the transition point between stages may be based on clinical assessment of muscle mass and symptoms in addition to eGFR. Blood 05/16/2024 1:59 PM EDT 05/16/2024 2:09 PM EDT Narrative Resulting Agency Comment Spec In Lab Kristi Renae MD CHEMISTRY ORDERABLES [facility] [place] [address] * (ABNORMAL) Hemoglobin A1c (03/13/2024 3:30 AM EDT) Hemoglobin A1c 8.4(H) 4.3 - 5.6 % [facility] Comment: Reference Range: 4.3 - 5.6% 5.7 - 6.4% - Increased Risk of Developing Diabetes Mellitus >= 6.5% - Consistent with diagnosis of Diabetes Mellitus In the absence of hyperglycemia (i.e. plasma glucose > 200 mg/dL) or classic symptoms of hyperglycemia a repeat measurement of HbA1c should be performed on a separate sample to confirm the diagnosis. Diagnosis and Classification of Diabetes Mellitus, Diabetes Care 2013; 36: Suppl. 1, F62-42 Estimated Average Glucose 193 mg/dL [facility] Blood 03/13/2024 3:30 AM EDT 03/13/2024 4:48 AM EDT Narrative Resulting Agency Comment Spec In Lab Cristian Malloy MD CHEMISTRY ORDERABLES [facility] [place] [address] * COLONOSCOPY (09/26/2019 2:48 PM EST) COLONOSCOPY [facility] Endoscopy Procedure Date: 09/26/2019 2:48 PM ? Patient Name: Gerson Bruner ? Date of : 1965 ? Age: 53 ? Order #: [id number] ? Instrument Name: -[id number] ? Procedure: ? Colonoscopy Indications: ? High risk colon cancer surveillance: ? Personal history of colonic polyps Providers: ? Kaye Gibbs MD, Kiel Oleary. ? VIDYA Horn, Thee Rodarte MD: ?Lauri Raul Karine Medicines: ? Midazolam 6 mg IV, Fentanyl 250 ? micrograms IV Complications: ? No immediate complications. Procedure: ? Pre-Anesthesia Assessment: ? - Prior to the procedure, a History ? and Physical was performed, and ? patient medications and allergies ? were reviewed. The patient's ? tolerance of previous anesthesia was ? also reviewed. The risks and benefits ? of the procedure and the sedation ? options and risks were discussed with ? the patient. All questions were ? answered, and informed consent was ? obtained. Prior Anticoagulants: The ? patient has taken aspirin. ASA Grade ? Assessment: III - A patient with ? severe systemic disease. After ? reviewing the risks and benefits, the ? patient was deemed in satisfactory ? condition to undergo the procedure. ? The procedure, indications, benefits, ? risks and alternatives were explained ? to the patient. Specifically ? discussed were potential ? complications including, but not ? limited to, bleeding, perforation, ? infection, missing a cancer, and ? adverse medication reactions. The ? patient was placed in the left ? lateral decubitus position, and a ? digital rectal exam was performed. ? The Colonoscope was inserted in the ? anus and under direct visualization, ? advanced to the cecum, identified by ? appendiceal orifice and ileocecal ? valve. Careful inspection was made as ? the colonoscope was withdrawn. The ? colonoscopy was performed without ? difficulty. The patient tolerated the ? procedure well. The quality of the ? bowel preparation was evaluated using ? the BBPS ([place] Bowel Preparation ? Scale) with scores of: Right Colon = ? 3, Transverse Colon = 3 and Left ? Colon = 3 (entire mucosa seen well ? with no residual staining, small ? fragments of stool or opaque liquid). ? The total BBPS score equals 9. ? Withdrawal time was 24 minutes. ? Findings: ? The perianal and digital rectal examinations were ? normal. ? The terminal ileum appeared normal. ? Three sessile polyps were found in the ascending ? colon. The polyps were 2 to 6 mm in size. These ? polyps were removed with a cold snare. Resection and ? retrieval were complete. Estimated blood loss: none. ? Two sessile polyps were found in the transverse ? colon. The polyps were 4 to 6 mm in size. These ? polyps were removed with a cold snare. Resection and ? retrieval were complete. ? A 1 mm polyp was found in the sigmoid colon. The ? polyp was sessile. The polyp was removed with a cold ? snare. Resection and retrieval were complete. ? Estimated blood loss: none. ? A few small-mouthed diverticula were found in the ? sigmoid colon. ? Internal hemorrhoids were found during retroflexion. ? Moderate Sedation: ? I was present during the intraservice time as ? documented by the sedation RN. ? I was present during the intraservice time as ? documented by the sedation RN. Impression: ?- The examined portion of the ileum ? was normal. ? - Three 2 to 6 mm polyps in the ? ascending colon, removed with a cold ? snare. Resected and retrieved. ? - Two 4 to 6 mm polyps in the ? transverse colon, removed with a cold ? snare. Resected and retrieved. ? - One 1 mm polyp in the sigmoid ? colon, removed with a cold snare. ? Resected and retrieved. ? - Diverticulosis in the sigmoid colon. ? - Internal hemorrhoids. Recommendation: ?- Await pathology results. ? - Repeat colonoscopy date to be ? determined after pending pathology ? results are reviewed for surveillance. ? - Return to referring physician. ? Procedure Code(s): ?? --- Professional --- ? 84992, Colonoscopy, flexible; with ? removal of tumor(s), polyp(s), or ? other lesion(s) by snare technique CPT copyright 2017 [employer]. All rights reserved. The codes documented in this report are preliminary and upon travel guide review may be revised to meet current compliance requirements. Attending Participation: ? I personally performed the entire procedure. ? Kaye Gibbs MD Kaye Gibbs MD 09/26/2019 4:02:26 PM This report has been signed electronically. Number of Addenda: 0 Note Initiated On: 09/26/2019 2:48 PM PROVATION 09/26/2019 2:48 PM EST Lauri Milton DNP GENERAL SURGICAL OR DERABLES Performing Organization Address City/[facility] Co de Phone Number PROVATION * Hepatitis C Antibody (06/02/2018 3:22 PM EDT) Hepatitis C Antibody Negative Negative [facility] Blood specimen (specimen) 06/02/2018 3:22 PM EDT 06/02/2018 3:48 PM EDT Narrative Resulting Agency Comment Spec In Lab Kiel Paulson MD CHEMISTRY ORDERAB LES Performing Organization Address [facility]/ZIP Co de Phone Number [facility] [place] [address] * HIV Screen, 4th Generation (06/02/2018 3:22 PM EDT) HIV Ab/Ag Screen Negative Negative [facility] Comment: This 4th Generation HIV test screens for the presence of the HIV-1 p24 antigen as well as antibodies reactive against HIV-1 and HIV-2. A negative screen does not rule out an acute HIV infection. If acute HIV infection is suspected, testing should be repeated in 2 - 3 weeks or HIV nucleic acid testing performed. Blood specimen (specimen) 06/02/2018 3:22 PM EDT 06/02/2018 3:48 PM EDT Narrative Resulting Agency Comment Spec In Lab Kiel Paulson MD CHEMISTRY ORDERAB LES Performing Organization Address City/[facility]/ZIP Co de Phone Number [facility] [place] [address] * Microalbumin, urine, random (06/13/2015 5:22 PM EDT) Creatinine, Urine 61 mg/dL [facility] MILLENNIUM Albumin, Urine 577.9 mg/L CERNE R MILLENNIUM Albumin / Creatinin Ratio, Urine 947 mcg/mg Cr [facility] Comment: Reference Range* Random collection (mcg/mg creatinine) Normal ?<30 Microalbuminuria ?? 30 - 300 Clinical Albuminuria ?? >300 *[employer]. Diabetic Nephropathy. Diabetes Care 1997;(Suppl 1):S24-S27 Exercise within 24 hour, infection, fever, CHF, marked hyperglycemia, and marked hypertension may elevate urinary albumin excretion over baseline values. Urine specimen (specimen) 06/13/2015 5:22 PM EDT 06/13/2015 5:22 PM EDT Narrative Resulting Agency Comment Spec In Lab Lauro Live MD URINE ORDERABLES Performing Organization Address City/[facility]/ZIP Co de Phone Number [facility] from Last 3 Months or Most Recently Relevant to Health Maintenance Advance Directives Documents on File Type Date Recorded Patient Health And Wellness Coach Expl anation Advance Directives and Livin g Will 01/09/2019 11:59 AM 12/21/2018 * Attempt Cardiopulmonary Resuscitation - Inpatient (Latest Code Status on File) Date Activated Date Inactivated Comments 08/03/2024 9:52 AM 08/04/2024 4:34 AM Question Answer Comments Code Status decision made by: Patient Content of discussion: Patient requests to be full code Bring me back * Attempt Cardiopulmonary Resuscitation - Inpatient Date Activated Date Inactivated Comments 04/20/2024 7:39 PM 04/29/2024 5:03 PM Question Answer Comments Code Status decision made by: Patient * Attempt Cardiopulmonary Resuscitation - Inpatient Date Activated Date Inactivated Comments 04/11/2024 1:32 PM 04/11/2024 7:42 PM Question Answer Comments Code Status decision made by: Patient * Attempt Cardiopulmonary Resuscitation - Inpatient Date Activated Date Inactivated Comments 04/11/2024 9:51 AM 04/11/2024 1:32 PM Question Answer Comments Code Status decision made by: Patient * Attempt Cardiopulmonary Resuscitation - Inpatient Date Activated Date Inactivated Comments 03/13/2024 2:21 AM 03/14/2024 4:53 PM Question Answer Comments Code Status decision made by: Patient Care Teams Transmission Superintendent Relationship Specialty Start Date End Date Ismael Albarran PA [facility] [address] PCP - General Internal Medicine 05/16/24
--- OUTSIDE RECORDS SUMMARY | 2024-12-05 12:32 | XMS_ITS | Encounter Summary ---
Author Organization [facility] Address [address] [place] [address] Care Team Providers Care Paper Rewinder Name Role Phone Villegas Adeola MONA Primary Care Provider [phone] Reason for Visit * Reason Comments Eye Problem * Consult, Test and Treat (Routine) - Closed Specialty Diagnoses / Procedures Referred By Nader pena Referred To Contact Ophthalmology Diagnoses Retinopathy, central serous, bilateral Diabetes (HCC-CMS) Macular edema of left eye Keara Matos, OD [address] [address] Phone: tel: fax: [facility] Ophthalmology [address] [address] Phone: tel: fax: Referral ID Status Reason Start Date Expiration Date Visits Re quested Visits Authorized [id number] Closed 1 1 Encounter Details Date Type Department Care Team (Late st Contact Info) Description 07/15/2021 12:30 EDT Office Visit [facility] Ophthalmology - [address] [address] Jas Winn MD [address] [place] [address], [address] [place] [phone] Social History Tobacco Use Types Packs/Day Years Used Date Smoking Tobacco: Every Day Cigarettes Smokeless Tobacco: Never Sex and Gender Information Value Date Recorded Sex Assigned at Not on file Legal Sex Male 18:49 EST Gender Identity Male 07/07/2023 14:11 EDT Sexual Orientation Not on file documented as of this encounter Progress Notes * Jas Winn MD - 07/15/2021 1230 EDT . Chief Complaint Patient presents with ??? Eye Problem Comments NPV-Type 2 DM. DME left eye. HPI Location: Left eye Pain: 0 - No pain Quality: Blurry Severity: Moderate Duration: Months Timing: Constant Lasts: Months Context: patient states vision is blurry sometimes. floaters some times in the left eye. no eye pain. patient sees double out of the right eye. Modifying factors: A1C= 9.8 per patient Associated Signs & Symptoms: NPV-Type 2 DM. DME left eye. Visual Fluctuations: Floaters Attestation: Base Eye Exam Visual Acuity (Snellen - Linear) Right Left Dist sc 20/40 +2 20/70 -1 Dist ph sc 20/25 -2 20/25 -2 Tonometry (Applanation, 13:13) Right Left Pressure 13 12 Pupils APD Right None Left None Visual Monk Right Left Restrictions Partial outer inferior nasal deficiency Partial outer inferior nasal deficiency Neuro/Psych Oriented x3: Yes Mood/Affect: Normal Dilation Both eyes: Tropicamide 1%, Phenylephrine 2.5% @ 13:13 Slit Lamp and Fundus Exam Slit Lamp Exam Right Left Lids/Lashes Normal Normal Conjunctiva/Sclera White and quiet White and quiet Cornea Clear Clear Anterior Chamber Deep and quiet Deep and quiet Iris no neovascularization no neovascularization Lens Clear Clear Vitreous Clear Clear Fundus Exam Right Left Disc no neovascularization no neovascularization C/D Ratio 0.4 0.4 Macula Hemorrhages and Microaneurysms Hemorrhages and Microaneurysms Vessels Beading, no neovessels Beading, no neovessels Periphery Retina is attached with heme in 4 quadrants Retina is attached with heme in 4 quadrants Please refer to large retinal drawing. IMAGING: OCT, Retina - OU - Both Eyes Right Eye Quality was good. Scan locations included subfoveal. Progression has no prior data. Findings include intraretinal fluid. Left Eye Quality was good. Scan locations included subfoveal. Progression has no prior data. Findings include intraretinal fluid. Notes Both eyes: Non-center involving IRF OCT- A capillary loss DIAGNOSES: 1. Severe nonproliferative diabetic retinopathy of both eyes with macular edema associated with type 2 diabetes mellitus ([facility]) OCT, RETINA - OU - BOTH EYES Assessment Type 2 diabetes mellitus Severe nonproliferative diabetic retinopathy With non-center involving diabetic macular edema both eyes Discussed that we do not need to do treatment (injections or laser) at this time. The edema that hehas in both eye is sparring the center. No evidence of ganesh-vessels in either eye that would require laser treatment at this time. Continue with good blood pressure and blood sugar control Monitor Follow up in 3 months with OCT or PRN I have reviewed the past medical, family, social and surgical history. I have reviewed the meds, allergies, and problem list. I performed my own HPI and reviewed the ROS. I personally completed the exam. The patient was instructed to call our office or go to emergency room if worse vision, worse symptoms, or new/other concerns arise. Jas Winn MD I am scribing for Dr. Jas Winn MD while he is personally performing the service. ELDA Whyte (scribe) documented in this encounter Plan of Treatment Upcoming Encounters Date Type Department Care Team (Late st Contact Info) Description 12/06/2024 6:45 EST Treatment [facility] [address] [place] [id number] Carlota Jin MD [address] [place] [address], [facility] [address] [place] [phone] 12/08/2024 6:45 EST Treatment [facility] [address] [place] [id number] Carlota Jin MD [address] [place] [address], [facility] [address] [place] [phone] 12/11/2024 6:45 EST Treatment [facility] [address] [place] [id number] Carlota Jin MD [address] [facility], [facility] [address] [place] [phone] 12/13/2024 6:45 EST Treatment [facility] [place] [address] [place], [place] [id number] Carlota Jin MD [address] [facility], [facility] 2 [place] [phone] 12/15/2024 6:45 EST Treatment [facility] [place] [address] [place] [address] Carlota Jin MD 1 [facility], [facility] 2 [place] [phone] 12/18/2024 6:45 EST Treatment [facility] [place] [address] [place], [place] [id number] Carlota Jin MD [address] [facility], [facility] 2 [place] [phone] 12/20/2024 6:45 EST Treatment [facility] [address] [place], [place] [id number] Carlota Jin MD [address] [facility], [facility] 2 [place] [phone] 12/22/2024 6:45 EST Treatment [facility] [place] [address] [place], [place] [id number] Carlota Jin MD [address] [facility], [facility] [address] [place] [phone] 12/25/2024 6:45 EST Treatment [facility] [place] [address] [place], [place] [id number] Carlota Jin MD 1 [facility], [facility] 2 [place] [phone] 12/27/2024 6:45 EST Treatment [facility] [place] [address] [place], [place] [id number] Carlota Jin MD 1 [facility], [facility] 2 [place] [phone] 12/29/2024 6:45 EST Treatment [facility] [place] [address] [place], [place] [phone] Carlota Jin MD 1 [facility], [address] [phone] 01/01/2025 6:45 EDT Treatment [facility] [place] [address] [place], [place] [id number] Carlota Jin MD 1 [facility], [facility] 2 [place] [phone] 01/03/2025 6:45 EDT Treatment [facility] [place] [address] [place], [place] [id number] Carlota Jin MD 1 [facility], [facility] 2 [place] [phone] 01/05/2025 6:45 EDT Treatment [facility] [place] [address] [place], [place] [id number] Carlota Jin MD 1 [facility], [facility] 2 [place] [phone] 01/08/2025 6:45 EDT Treatment [facility] [place] [address] [place] [address] Carlota Jin MD [address] [facility], [facility] 2 [place] [phone] 01/10/2025 6:45 EDT Treatment [facility] [place] [address] [place] [address] Carlota Jin MD 1 [facility], [facility] 2 [place] [phone] 01/12/2025 6:45 EDT Treatment [facility] [place] [address] [place] [address] Carlota Jin MD 1 [facility], [facility] 2 [place] [phone] 01/15/2025 6:45 EDT Treatment [facility] [place] [address] [place] [address] Carlota Jin MD 1 [facility], [facility] 2 [place] [phone] 01/17/2025 6:45 EDT Treatment [facility] [place] [address] [place], [place] [id number] Carlota Jni MD 1 [facility], [facility] 2 [place] [phone] 01/19/2025 6:45 EDT Treatment [facility] [place] [address] [place], [place] [address] Carlota Jin MD 1 [facility], [facility] 2 [place] [phone] 01/22/2025 6:45 EDT Treatment [facility] [place] [address] [place], [place] [id number] Carlota Jin MD 1 [facility], [facility] 2 [place] [phone] 01/24/2025 6:45 EDT Treatment [facility] [place] [address] [place], [place] [id number] Carlota Jin MD 1 [facility], [facility] 2 [place] [phone] 01/26/2025 6:45 EDT Treatment [facility] [place] [address] [place], [place] [address] Carlota Jin MD 1 [facility], [facility] 2 [place] [phone] 01/29/2025 6:45 EDT Treatment [facility] [place] [address] [place], [place] [id number] Carlota Jin MD 1 [facility], [facility] 2 [place] [phone] 01/31/2025 6:45 EDT Treatment [facility] [place] [address] [place], [place] [address] Carlota Jin MD 1 [facility], [facility] 2 [place] [phone] 02/02/2025 6:45 EDT Treatment [facility] [place] [address] [place], [place] [id number] Carlota Jin MD 1 [facility], [address] [phone] 02/05/2025 6:45 EDT Treatment [facility] [place] [address] [place], [place] [id number] Carlota Jin MD 1 [facility], [address] [phone] 02/07/2025 6:45 EDT Treatment [facility] [place] [address] [place], [place] [id number] Carlota Jin MD [address] [phone] 02/09/2025 6:45 EDT Treatment [facility] [place] [address] [place], [place] [id number] Carlota Jin MD [address] [phone] 02/12/2025 6:45 EDT Treatment [facility] [place] [address] [place], [place] [id number] Carlota Jin MD 1 [facility], [facility] 2 [place] [address] 02/14/2025 6:45 EDT Treatment [facility] [place] [address] [place], [place] [id number] Carlota Jin MD 1 [facility], [address] [phone] 02/16/2025 6:45 EDT Treatment [facility] [place] [address] [place], [place] [id number] Carlota Jin MD 1 [facility], [address] [address] 02/19/2025 6:45 EDT Treatment [facility] [place] [address] [place], [place] [id number] Carolta Jin MD [address] [place] [phone] 02/21/2025 6:45 EDT Treatment [facility] [place] [address] [place], [place] [phone] Carlota Jin MD 1 [facility], [address] [phone] documented as of this encounter Procedures Procedure Name Priority Date/Time Associated Diagnosis Comments OCT, RETINA - OU - BOTH EYES Routine 07/15/2021 15:29 EDT Severe nonproliferative diabetic retinopathy of both eyes with macular edema associated with type 2 diabetes mellitus ([facility]) documented in this encounter Results * OCT, RETINA - OU - BOTH EYES (07/15/2021 15:29 EDT) Narrative [facility] POINT OF CARE - 07/16/2021 8:08 EDT Right Eye Quality was good. Scan locations included subfoveal. Progression has no prior data. Findings include intraretinal fluid. Left Eye Quality was good. Scan locations included subfoveal. Progression has no prior data. Findings include intraretinal fluid. Notes Both eyes: Non-center involving IRF OCT- A capillary loss Jas Winn MD OPHTH TOMOGRAPHY Final Result [facility] POINT OF CARE documented in this encounter Visit Diagnoses Diagnosis Severe nonproliferative diabetic retinopathy of both eyes with macular edema associated with type 2 diabetes mellitus ([facility])- Primary documented in this encounter Historical Medications * This list may reflect changes made after this encounter. calcium carbonate (TUMS) 200 mg calcium (500 mg) tablet,chewable Take 1 Tablet by mouth 3 times daily with meals. carvediloL (COREG) 12.5 mg tablet Take 1 Tablet by mouth 2 times daily. atorvastatin (LIPITOR) 40 mg tablet Take 1 Tablet by mouth daily. MULTIVITAMIN ORAL Take by mouth. 11/13 24 nortriptyline (PAMELOR) 25 mg capsule Take 1 Capsule by mouth at bedtime. 08/06/20 23 b fvthxks-O-wsszd acid (NEPHROCAPS) 1 mg capsule Take 1 capsule by mouth daily. 11/20/19 23 hydrOXYzine (ATARAX) 25 mg tablet Take 1 Tablet by mouth at bedtime. 09/29/20 23 famotidine (PEPCID) 40 mg tablet Take 1 Tablet by mouth daily. 02/28/20 24 albuterol (ACCUNEB) 0.63 mg/3 mL nebulizer solution Take 3 mL by nebulization every 4 hours as needed for Wheezing. 08/06/20 23 labetalol (NORMODYNE) 100 mg tablet Take 100 mg by mouth 2 times daily. 11/20/19 23 pregabalin (LYRICA) 100 mg capsule Take 1 Capsule by mouth 2 times daily. 08/06/20 23 amLODIPine (NORVASC) 10 mg tablet Take 1 Tablet by mouth daily. 12/24/19 24 BABY ASPIRIN ORAL Take 81 mg by mouth daily. 08/06/20 23 insulin detemir (LEVEMIR FLEXPEN SUBQ) Inject into the skin. 03/19/20 23 sevelamer hydrochloride (RENAGEL) 800 mg tablet Take 1,600 mg by mouth 3 times daily. 12/02/19 23 added in this encounter Eye Exam Visual Acuity (Snellen - Linear) Right eye Left eye Dist sc 20/40 +2 20/70 -1 Dist ph sc 20/25 -2 20/25 -2 Tonometry (Applanation, 13:13) Right eye Left eye Pressure 13 12 Pupils APD Right eye None Left eye None Visual Monk Right eye Left eye Restrictions Partial outer inferi or nasal deficiency Partial outer inferior nasal deficiency Neuro/Psych Oriented x3: Yes Mood/Affect: Normal Dilation Both eyes: Tropicamide 1%, P henylephrine 2.5% @ 13:13 Slit Lamp Exam Right eye Left eye Lids/Lashes Normal Normal Conjunctiva/Sclera White and quiet White and darlene et Cornea Clear Clear Anterior Chamber Deep and quiet Deep and quiet Iris no neovascularization no neovasc ularization Lens Clear Clear Vitreous Clear Clear Fundus Exam Right eye Left eye Disc no neovascularization no neovasc ularization C/D Ratio 0.4 0.4 Macula Hemorrhages and Microaneurysms H emorrhages and Microaneurysms Vessels Beading, no neovessels Beading, no neovessels Periphery Retina is attached w ith heme in 4 quadrants Retina is attached with heme in 4 quadrants Care Teams Paper Rewinder Relationship Specialty Start Date End Date Adeola Villegas APRN [address] [place] [address] PCP - General 10/12/16 07/06/23 documented as of this encounter
--- OUTSIDE RECORDS SUMMARY | 2024-12-05 12:32 | XMS_ITS | Encounter Summary ---
Author Organization [facility] Address [address] [place] [address] Care Team Providers Care Foreclosure Clerk Name Role Phone Adeola Villegas MONA Primary Care Provider [phone] Ken Greer MD Primary Care Provider [phone] Kiel Powers Unavailable Unavailable Encounter Details Date Type Department Care Team (Late st Contact Info) Description 11/11/2022 Documentation Visit [facility] [place] [address] [place] [phone] Marcela Cox, VIDYA Social History Tobacco Use [...] EST Treatment [facility] [place] [address] [place] [phone] Carlota Jin MD 1 [facility] [address] [place] [address] 12/08/2024 6:45 EST Treatment [facility] [place] [address] [place] [phone] Carlota Jin MD 1 [facility] [address] [place] [phone] 12/11/2024 6:45 EST Treatment [facility] [place] [address] [place], [place] [address] Carlota Jin MD 1 [facility] 2 [place] [phone] 12/13/2024 6:45 EST Treatment [facility] [place] [address] [place] [address] Carlota Jin MD 1 [facility], [facility] 2 [place] [phone] 12/15/2024 6:45 EST Treatment [facility] [place] [address] [place] [address] Carlota Jin MD 1 [facility], [facility] 2 [place] [phone] 12/18/2024 6:45 EST Treatment [facility] [address] [place], [place] [phone] Carlota Jin MD 1 [facility], [facility] 2 [place] [phone] 12/20/2024 6:45 EST Treatment [facility] [place] [address] [place], [place] [phone] Carlota Jin MD 1 [facility], [facility] 2 [place] [phone] 12/22/2024 6:45 EST Treatment [facility] [place] [address] [place], [place] [phone] Carlota Jin MD 1 [facility], [facility] 2 [place] [phone] 12/25/2024 6:45 EST Treatment [facility] [place] [address] [place], [place] [phone] Carlota Jin MD 1 [facility], [facility] 2 [place] [phone] 12/27/2024 6:45 EST Treatment [facility] [place] [address] [place], [place] [phone] Carlota Jin MD 1 [facility], [facility] [address] [place] [phone] 12/29/2024 6:45 EST Treatment [facility] [place] [address] [place], [place] [phone] Carlota Jin MD 1 [facility], [facility] [address] [place] [phone] 01/01/2025 6:45 EDT Treatment [facility] [place] [address] [place], [place] [phone] Carlota Jin MD 1 [facility], [facility] 2 [place] [phone] 01/03/2025 6:45 EDT Treatment [facility] [place] [address] [place], [place] [phone] Carlota Jin MD 1 [facility], [facility] 2 [place] [phone] 01/05/2025 6:45 EDT Treatment [facility] [place] [address] [place], [place] [phone] Carlota Jin MD 1 [facility], [facility] 2 [place] [phone] 01/08/2025 6:45 EDT Treatment [facility] [place] [address] [place], [place] [phone] Carlota Jin MD 1 [facility], [facility] 2 [place] [phone] 01/10/2025 6:45 EDT Treatment [facility] [place] [address] [place] [address] Carlota Jin MD 1 [facility], [facility] 2 [place] [phone] 01/12/2025 6:45 EDT Treatment [facility] [place] [address] [place] [address] Carlota Jin MD 1 [facility], [facility] [address] [place] [phone] 01/15/2025 6:45 EDT Treatment [facility] [place] [address] [place], [place] [phone] Carlota Jin MD 1 [facility], [facility] [address] [place] [phone] 01/17/2025 6:45 EDT Treatment [facility] [place] [address] [place], [place] [phone] Carlota Jin MD 1 [facility], [facility] [address] [place] [phone] 01/19/2025 6:45 EDT Treatment [facility] [place] [address] [place], [place] [phone] Carlota Jin MD 1 [facility], [facility] 2 [place] [phone] 01/22/2025 6:45 EDT Treatment [facility] [place] [address] [place], [place] [phone] Carlota Jin MD 1 [facility], [facility] [address] [place] [phone] 01/24/2025 6:45 EDT Treatment [facility] [place] [address] [place], [place] [phone] Carlota Jin MD 1 [facility], [facility] [address] [place] [phone] 01/26/2025 6:45 EDT Treatment [facility] [place] [address] [place], [place] [phone] Carlota Jin MD 1 [facility], [facility] 2 [place] [phone] 01/29/2025 6:45 EDT Treatment [facility] [place] [address] [place], [place] [address] Carlota Jin MD 1 [facility], [facility] 2 [place] [phone] 01/31/2025 6:45 EDT Treatment [facility] [place] [address] [place] [address] Carlota Jin MD 1 [facility], [facility] [address] [place] [phone] 02/02/2025 6:45 EDT Treatment [facility] [place] [address] [place], [place] [phone] Carlota Jin MD 1 [facility], [address] [phone] 02/05/2025 6:45 EDT Treatment [facility] [place] [address] [place], [place] [phone] Carlota Jin MD 1 [facility], [address] [phone] 02/07/2025 6:45 EDT Treatment [facility] [place] [address] [place], [place] [phone] Carlota Jin MD 1 [facility], [facility] 2 [place] [phone] 02/09/2025 6:45 EDT Treatment [facility] [place] [address] [place], [place] [phone] Carlota Jin MD 1 [facility], [facility] 2 [place] [phone] 02/12/2025 6:45 EDT Treatment [facility] [place] [address] [place], [place] [phone] Carlota Jin MD [address] [phone] 02/14/2025 6:45 EDT Treatment [facility] [place] [address] [place], [place] [phone] Carlota Jin MD [address] [phone] 02/16/2025 6:45 EDT Treatment [facility] [place] [address] [place], [place] [phone] Carlota Jin MD [address] [place] [phone] 02/19/2025 6:45 EDT Treatment [facility] [place] [address] [place], [place] [phone] Carlota Jin MD [address] [place] [phone] 02/21/2025 6:45 EDT Treatment [facility] [place] [address] [place], [place] [phone] Carlota Jin MD [address] [phone] documented as of this encounter Visit Diagnoses Not on filedocumented in this encounter Additional Health Concerns Infection Onset Date Last Indicated Resolved Time COVID-19 Comment:COVID+ 11/05/23 @[facility] (see scan) 11/08/2023 11/08/2023 11/17/2023 13:58 EST R/O COVID-19 12/20/2023 12/20/2023 12/20/2023 7:14 EST COVID-19 Comment:Collected @ [facility]. 03/12/2024 03/13/2024 04/01/2024 22: 15 EDT R/O COVID-19 05/30/2024 05/30/2024 05/30/2024 20:5 0 EDT documented as of this encounter Care Teams Foreclosure Clerk Relationship Specialty Start Date End Date Adeola Villegas APRN [address] [place] [address] PCP - General 10/12/16 07/06/23 Ken Greer MD [address] [place] [address] PCP - General 07/07/23 Kiel Powers Telemetry Nurse Nephrology 05/31/24 documented as of this encounter
--- OUTSIDE RECORDS SUMMARY | 2024-12-05 12:32 | XMS_ITS | Encounter Summary ---
Author Organization [facility] Address [facility] [place] [address] Care Team Providers Care Aircraft Steel Fabricator Name Role Phone Ismael Albarran Primary Care Provider + Encounter Details Date Type Department Care Team (Latest Contact Info) Description 08/03/2024 Travel Social History Tobacco Use Types Packs/Day Years Used Date Smoking Tobacco: Every Day Cigarettes Last attempted to quit: 12/26/2018 Smokeless Tobacco: Never Comments:smoking a few a day Alcohol Use Standard Drinks/Week Comments No 0 (1 standard drink = 0.6 oz pur e alcohol) [facility] Utilities Answer Date Recorded In [...] place to sleep or slept in a group home (including now)? No 02/20/2024 Housing Stability Vital Sign Answer Lon e Recorded In the last 12 months, was t here a time when you were not able to pay the mortgage or rent on time? No 04/21/2024 In the past 12 months, how m any times have you moved where you were living? 1 04/21/2024 At any time in the past 12 m [facility], were you homeless or living in a group home (including now)? No 04/21/2024 [facility] IPV Inpatient [...] on filedocumented in this encounter Care Teams Aircraft Steel Fabricator Relationship Specialty Start Date End Date Ismael Albarran PA [address] [place] [address] PCP - General Internal Medicine 05/16/24 documented as of this encounter
--- OUTSIDE RECORDS SUMMARY | 2024-12-05 12:32 | XMS_ITS | Encounter Summary ---
Author Organization [facility] Address [address] [place] [address] Care Team Providers Care Travel Physical Therapist Name Role Phone Priya Wallace MD Primary Care Provider [phone] Encounter Details Date Type Department Care Team (Late Contact Info) Description 11/25/2011 Results Only [facility] [phone] Chencho Ruiz, DO [address] [place] [phone] Social History Tobacco Use Types Packs/Day Years Used Date Smoking Tobacco: Never Assessed Sex and Gender Information Value Date Recorded Sex Assigned at Not on file Legal Sex Male 18:49 EST Gender Identity Male 07/07/2023 14:11 EDT Sexual Orientation Not on file documented as of this encounter Plan of Treatment Upcoming Encounters Date Type Department Care Team (Late Contact Info) Description 12/06/2024 6:45 EST Treatment [facility] [place] [address] [place], [place] [phone] Carlota Jin MD 1 [facility] [address] [place] [phone] 12/08/2024 6:45 EST Treatment [facility] [place] [address] [place] [phone] Carlota Jin MD 1 [facility] 2 [place] [phone] 12/11/2024 6:45 EST Treatment [facility] [place] [address] [place], [place] [address] Carlota Jin MD 1 [facility] 2 [place] [phone] 12/13/2024 6:45 EST Treatment [facility] [place] [address] [place], [place] [phone] Carlota Jin MD 1 [facility], [facility] 2 [place] [phone] 12/15/2024 6:45 EST Treatment [facility] [place] [address] [place], [place] [phone] Carlota Jin MD 1 [facility], [facility] 2 [place] [phone] 12/18/2024 6:45 EST Treatment [facility] [place] [address] [place] [address] Carlota Jin MD 1 [facility] 2 [place] [phone] 12/20/2024 6:45 EST Treatment [facility] [place] [address] [place], [place] [phone] Carlota Jin MD 1 [facility] 2 [place] [phone] 12/22/2024 6:45 EST Treatment [facility] [place] [address] [place], [place] [phone] Carlota Jin MD 1 [facility], [facility] 2 [place] [phone] 12/25/2024 6:45 EST Treatment [facility] [place] [address] [place], [place] [phone] Carlota Jin MD 1 [facility], [facility] 2 [place] [phone] 12/27/2024 6:45 EST Treatment [facility] [place] [address] [place], [place] [phone] Carlota Jin MD 1 [facility], [facility] 2 [place] [phone] 12/29/2024 6:45 EST Treatment [facility] [place] [address] [place], [place] [phone] Carlota Jin MD 1 [facility], [facility] 2 [place] [phone] 01/01/2025 6:45 EDT Treatment [facility] [place] [address] [place], [place] [phone] Carlota Jin MD 1 [facility], [facility] 2 [place] [phone] 01/03/2025 6:45 EDT Treatment [facility] [place] [address] [place], [place] [phone] Carlota Jin MD 1 [facility] [address] [place] [phone] 01/05/2025 6:45 EDT Treatment [facility] [place] [address] [place], [place] [address] Carlota Jin MD 1 [facility], [facility] 2 [place] [phone] 01/08/2025 6:45 EDT Treatment [facility] [place] [address] [place], [place] [phone] Carlota Jin MD 1 [facility], [facility] 2 [place] [phone] 01/10/2025 6:45 EDT Treatment [facility] [place] [address] [place], [place] [phone] Carlota Jin MD 1 [facility], [facility] 2 [place] [phone] 01/12/2025 6:45 EDT Treatment [facility] [address] [place], [place] [phone] Carlota Jin MD 1 [facility], [facility] 2 [place] [phone] 01/15/2025 6:45 EDT Treatment [facility] [address] [place], [place] [phone] Carlota Jin MD 1 [facility] 2 [place] [phone] 01/17/2025 6:45 EDT Treatment [facility] [place] [address] [place], [place] [phone] Carlota Jin MD 1 [facility], [facility] 2 [place] [phone] 01/19/2025 6:45 EDT Treatment [facility] [place] [address] [place], [place] [phone] Carlota Jin MD 1 [facility], [facility] 2 [place] [phone] 01/22/2025 6:45 EDT Treatment [facility] [place] [address] [place], [place] [phone] Carlota Jin MD 1 [facility], [facility] 2 [place] [phone] 01/24/2025 6:45 EDT Treatment [facility] [place] [address] [place], [place] [phone] Carlota Jin MD 1 [facility], [facility] 2 [place] [phone] 01/26/2025 6:45 EDT Treatment [facility] [place] [address] [place], [place] [phone] Carlota Jin MD 1 [facility], [facility] 2 [place] [phone] 01/29/2025 6:45 EDT Treatment [facility] [place] [address] [place], [place] [phone] Carlota Jin MD 1 [facility], [facility] 2 [place] [phone] 01/31/2025 6:45 EDT Treatment [facility] [place] [address] [place], [place] [phone] Carlota Jin MD 1 [facility], [facility] 2 [place] [phone] 02/02/2025 6:45 EDT Treatment [facility] [place] [address] [place] [address] Carlota Jin MD 1 [facility], [address] [phone] 02/05/2025 6:45 EDT Treatment [facility] [place] [address] [place], [place] [phone] Carlota Jin MD 1 [facility], [address] [phone] 02/07/2025 6:45 EDT Treatment [facility] [place] [address] [place] [address] Carlota Jin MD 1 [facility], [facility] 2 [place] [phone] 02/09/2025 6:45 EDT Treatment [facility] [place] [address] [place], [place] [phone] Carlota Jin MD 1 [facility], [facility] 2 [place] [phone] 02/12/2025 6:45 EDT Treatment [facility] [place] [address] [place], [place] [phone] Carlota Jin MD [address] [phone] 02/14/2025 6:45 EDT Treatment [facility] [place] [address] [place], [place] [phone] Carlota Jin MD [address] [phone] 02/16/2025 6:45 EDT Treatment [facility] [place] [address] [place], [place] [phone] Carlota Jin MD [address] [phone] 02/19/2025 6:45 EDT Treatment [facility] [place] [address] [place], [place] [phone] Carlota Jin MD [address] [phone] 02/21/2025 6:45 EDT Treatment [facility] [place] [address] [place], [place] [phone] Carlota Jin MD [address] [phone] documented as of this encounter Procedures Procedure Name Priority Date/Time Associated Diagnosis Comments SURGICAL PATHOLOGY Routine 11/25/2011 0:00 EST documented in this encounter Results * SURGICAL PATHOLOGY (11/25/2011 0:00 EST) Pathology Report: SURGICAL PATHOLOGY REPORT Reports generated via electronic interface contain original data; however they are lacking the format of the original report. Caution should be taken when reading/interpreti ng unformatted reports. Name: ? GERSON BONILLA T ? Accession #: ? [id number] ? : ? 1965 (Age: 45) ??M ? Collect Date: ? 11/25/2011 ? Location: ? [facility] ? Receive Date: ? 11/25/2011 ? Provider: CHENCHO RUIZ DO Copy to: PRIYA WALLACE MD ? Final Pathologic Diagnosis: ? Gallbladder, cholecystectomy: - Minimal chronic cholecystitis. ?? Document reviewed and electronically signed by: WILLIAMS STOLL MD Report ??Date: 12/01/2011 12:34 By the signature above, the attending physician certifies that he/she has personally conducted a gross and/or microscopic examination of the described specimens and rendered or confirmed the above diagnosis. Specimen(s) Received: ? Gallbladder Clinical History: ? Cholelithiasis Gross Description: ? Received in formalin labelled Gerson Bonilla and gallbladder is an 8.0 cm in length by 2.8 cm in diameter gallbladder, received closed, which includes a 0.8 cm in length by 0.4 cm in diameter segment of cystic duct. ??The proximal cystic duct margin is black inked. ??The gallbladder contains dark green bile; however, there are no choleliths received with the specimen. ??The gallbladder mucosa is simpson-dark green bile stained and velvety. ??The gallbladder wall measures 0.1 cm in thickness. ??The serosa is generally smooth and brito-white. The cystic duct margin (black inked and en face), along with sections of upper and lower gallbladder are submitted in one cassette. ??(Savita Olivas)/mansi End of Report RIGOBERTO STAFFORD 11/25/2011 11/25/2011 16: 00 EST us Chencho Ruiz DO PATHOLOGY ORDERABLES Final Res ult RIGOBERTO STAFFORD [address] [place] [address] documented in this encounter Visit Diagnoses Not on filedocumented in this encounter Care Teams Travel Physical Therapist Relationship Specialty Start Date End Date Priya Wallace MD [address] [place] [phone] PCP - General 03/20/10 10/11/16 documented as of this encounter
--- OUTSIDE RECORDS SUMMARY | 2024-12-05 12:32 | XMS_ITS | Encounter Summary ---
Author Organization [facility] Address [address] [place] [address] Care Team Providers Care Measurement Psychologist Name Role Phone Unknown, Provider Primary Care Provider Jessica bello Encounter Details Date Type Department Care Team (Late st Contact Info) Description 03/18/2010 Results Only [facility] Laboratory Services - [facility] [address], [place] [id number] Ankur Webb, [address] NATE WAGNER [address] [place] [address] [id number] Social History Tobacco Use Types Packs/Day Years [...] Treatment [facility] [place] [address] [place] [address] Carlota Jin MD 1 [facility], Level [address] [place] [phone] 12/08/2024 6:45 EST Treatment [facility] [place] [address] [place] [address] Carlota Jin MD 1 [facility] 2 [place] [phone] 12/11/2024 6:45 EST Treatment [facility] [place] [address] [place], [place] [id number] Carlota Jin MD 1 [facility], [facility] 2 [place] [phone] 12/13/2024 6:45 EST Treatment [facility] [place] [address] [place], [place] [id number] Carlota Jin MD 1 [facility], [facility] 2 [place] [phone] 12/15/2024 6:45 EST Treatment [facility] - [place] [address] [place] [address] Carlota Jin MD 1 [facility], [facility] [address] [place] [phone] 12/18/2024 6:45 EST Treatment [facility] [place] [address] [place], [place] [id number] Carlota Jin MD 1 [facility], [facility] [address] [place] [phone] 12/20/2024 6:45 EST Treatment [facility] - [place] [address] [place], [place] [id number] Carlota Jin MD 1 [facility], [facility] [address] [place] [phone] 12/22/2024 6:45 EST Treatment [facility] - [place] [address] [place], [place] [id number] Carlota Jin MD 1 [facility], [facility] 2 [place] [phone] 12/25/2024 6:45 EST Treatment [facility] [place] [address] [place], [place] [id number] Carlota Jin MD 1 [facility], [facility] 2 [place] [phone] 12/27/2024 6:45 EST Treatment [facility] [address] [place], [place] [id number] Carlota Jin MD [address] [place] [address], [facility] 2 [place] [phone] 12/29/2024 6:45 EST Treatment [facility] [address] [place], [place] [id number] Carlota Jin MD 1 [facility], [facility] 2 [place] [phone] 01/01/2025 6:45 EDT Treatment [facility] [place] [address] [place], [place] [id number] Carlota Jin MD 1 [facility], [facility] 2 [place] [phone] 01/03/2025 6:45 EDT Treatment [facility] [address] [place], [place] [id number] Carlota Jin MD 1 [facility], [facility] 2 [place] [phone] 01/05/2025 6:45 EDT Treatment [facility] - [place] [address] [place], [place] [id number] Carlota Jin MD 1 [facility], [facility] 2 [place] [phone] 01/08/2025 6:45 EDT Treatment [facility] - [place] [address] [place], [place] [id number] Carlota Jin MD 1 [facility], [address] [phone] 01/10/2025 6:45 EDT Treatment [facility] - [place] [address] [place], [place] [id number] Carlota Jin MD 1 [facility], [address] [phone] 01/12/2025 6:45 EDT Treatment [facility] - [place] [address] [place], [place] [id number] Carlota Jin MD 1 [facility], [facility] 2 [place] [phone] 01/15/2025 6:45 EDT Treatment [facility] - [place] [address] [place], [place] [id number] Carlota Jin MD 1 [facility], [facility] 2 [place] [phone] 01/17/2025 6:45 EDT Treatment [facility] - [place] [address] [place], [place] [phone] Carlota Jin MD 1 [facility], [facility] 2 [place] [phone] 01/19/2025 6:45 EDT Treatment [facility] - [place] [address] [place], [place] [id number] Carlota Jin MD 1 [facility], [facility] 2 [place] [phone] 01/22/2025 6:45 EDT Treatment [facility] - [place] [address] [place], [place] [address] Carlota Jin MD 1 [facility], [address] [phone] 01/24/2025 6:45 EDT Treatment [facility] [place] [address] [place], [place] [phone] Carlota Jin MD 1 [facility], [facility] 2 [place] [phone] 01/26/2025 6:45 EDT Treatment [facility] - [place] [address] [place], [place] [id number] Carlota Jin MD 1 [facility], [facility] 2 [place] [phone] 01/29/2025 6:45 EDT Treatment [facility] - [place] [address] [place], [place] [address] Carlota Jin MD 1 [facility], [facility] 2 [place] [phone] 01/31/2025 6:45 EDT Treatment [facility] - [place] [address] [place] [address] Carlota Jin MD 1 [facility], [address] [phone] 02/02/2025 6:45 EDT Treatment [facility] - [place] [address] [place], [place] [address] Carlota Jin MD 1 [facility], [address] [phone] 02/05/2025 6:45 EDT Treatment [facility] [place] [address] [place] [address] Carlota Jin MD 1 [facility], [address] [phone] 02/07/2025 6:45 EDT Treatment [facility] - [place] [address] [place], [place] [id number] Carlota Jin MD [address] [phone] 02/09/2025 6:45 EDT Treatment [facility] - [place] [address] [place], [place] [id number] Carlota Jin MD 1 [facility], [facility] 2 [place] [phone] 02/12/2025 6:45 EDT Treatment [facility] - [place] [address] [place], [place] [id number] Carlota Jin MD 1 [facility], [address] [phone] 02/14/2025 6:45 EDT Treatment [facility] - [place] [address] [place], [place] [id number] Carlota Jin MD 1 [facility], [address] [phone] 02/16/2025 6:45 EDT Treatment [facility] [place] [address] [place], [place] [id number] Carlota Jin MD [address] [phone] 02/19/2025 6:45 EDT Treatment [facility] - [place] [address] [place], [place] [id number] Carlota Jin MD 1 [facility], [address] [phone] 02/21/2025 6:45 EDT Treatment [facility] [place] [address] [place], [place] [phone] Carlota Jin MD 1 [facility], [address] [phone] documented as of this encounter Procedures Procedure Name Priority Date/Time Associated Diagnosis Comments SURGICAL PATHOLOGY Routine 03/18/2010 0:00 EDT documented in this encounter Results * SURGICAL PATHOLOGY (03/18/2010 0:00 EDT) Pathology Report: SURGICAL PATHOLOGY REPORT ? Reports generated via electronic interface contain original data; ? however they are lacking the format of the original report. ? Caution should be taken when reading/interpreti ng unformatted reports. ? Name: ? GERSON BONILLA ? Accession #: ? [id number] ? : ? 1965 (Age: 44) ??M ? Collect Date: ? 03/18/2010 ? Location: ? [facility] ? Receive Date: ? 03/18/2010 ? Provider: BEEER ELOISA DO ? Copy to: ARUN M DOBBERTIN MD ? Final Pathologic Diagnosis: ? A. ?Colon, 35 cm, polyp, excision: ? 1. ?Tubular adenoma. ? B. ?Colon, 30 cm, polyp, excision: ? 1. 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 ? - Margin of resection free of dysplasia. ? C. ?? Rectum, polyp, biopsies: ? 1. ?? Hyperplastic polyp. ? Document reviewed and electronically signed by: ? Maryuri Mejia MD ? Report ??Date: 03/21/2010 15:53 ? By the signature above, the attending physician certifies that he/she has ? personally conducted a gross and/or microscopic examination of the described ? specimens and rendered or confirmed the above diagnosis. ? Specimen(s) Received: ? A. ?Polyp @ 35 cm (#1) ? B. ? Polyp @ 30 cm (#2) ? C. ? Polyp rectum (#3) ? Clinical History: ? F/H colon Ca, blood in stool ? Gross Description: ? Received in Digital Perception's solution labelled Gerson Bonilla and polyp @ 35 ?? cm is a 0.6 x 0.4 x 0.3 cm, pink-simpson, polypoid, soft tissue. ??The resection ? margin is inked blue. ??The specimen is bisected and entirely submitted in (A). ? Received in Digital Perception's solution labelled Gerson Bonilla and polyp @ 30 cm is a 1.6 x 1.1 x 0.8 cm, simpson-red, pedunculated, polypoid, soft tissue that includes a 0.5 cm in length by 0.6 cm in diameter stalk. ??The resection margin is inked ?? blue. ??The specimen is trisected and entirely submitted in (B1) and (B2). ? Received in Digital Perception's solution labelled Gerson Bonilla and rectal polyp are two pink-simpson, irregular, soft tissues, each 0.2 x 0.2 x 0.2 cm. ??Submitted in ?? toto in (C). ??(Jana Vance/lola ? End of Report ? [facility] 03/18/2010 03/18/2010 8:3 0 EDT us Ankur Webb DO PATHOLOGY ORDERABLES Fi nal Result Performing Organization Address City/State/[facility] Co de Phone Number [facility] [address] [place] [address] documented in this encounter Visit Diagnoses Not on filedocumented in this encounter Care Teams Measurement Psychologist Relationship Specialty Start Date End Date Unknown, Provider, PCP - General 03/18/10 03/19/10 documented as of this encounter
--- OUTSIDE RECORDS SUMMARY | 2024-12-05 12:32 | XMS_ITS | Encounter Summary ---
Author Organization [facility] Address [address] [place] [address] Care Team Providers Care Derrick Boat Leverman Name Role Phone Adeola Villegas APRN Primary Care Provider [phone] Reason for Visit * Reason Comments Eye Problem Encounter Details Date Type Department Care Team (Late st Contact Info) Description 10/14/2021 9:45 EST Office Visit [facility] Ophthalmology - [address] [id number] Jas Winn MD 111 [facility], Level [address] [place] [address] Social History Tobacco Use Types Packs/Day Years Used Date Smoking Tobacco: Every Day Cigarettes Smokeless Tobacco: Never Sex and Gender Information Value Date Recorded Sex Assigned at Not on file Legal Sex Male 18:49 EST Gender Identity Male 07/07/2023 14:11 EDT Sexual Orientation Not on file documented as of this encounter Progress Notes * Jas Winn MD - 10/14/2021 0926 EST Chief Complaint Patient presents with ??? Eye Problem Comments 3 month f/u Severe NPDR w/ DME both eyes. Type II DM. Stage 3 kidney disease. Vision is the same. No pain, flashes, or floaters. HPI Location: Both eyes Pain: 0 - No pain Quality: Severity: Moderate Duration: Months Timing: Intermittent Lasts: Months Context: 3 month f/u Severe NPDR w/ DME both eyes. Type II DM. Stage 3 kidney disease. Vision is the same. No pain, flashes, or floaters. Modifying factors: Glasses Associated Signs & Symptoms: Vision is the same. No pain, flashes, or floaters. Visual Fluctuations: None Attestation: Base Eye Exam Visual Acuity (Snellen - Linear) Right Left Dist sc 20/40 -2 20/40 -1 Dist ph sc 20/25 -1 20/25 -1 Tonometry (Applanation, 10:10) Right Left Pressure 18 16 Pupils Pupils Dark Light Shape React APD Right PERRL 4 3 Round Brisk None Left PERRL 4 3 Round Brisk None Visual Monk (Counting fingers) Right Left Full Full Extraocular Movement Right Left Full, Ortho Full, Ortho Neuro/Psych Oriented x3: Yes Mood/Affect: Normal Dilation Both eyes: Tropicamide 1%, Phenylephrine 2.5% @ 10:11 Slit Lamp and Fundus Exam Slit Lamp [...] Microaneurysms Vessels Beading, no neovessels Beading, no neovessels, IRMAs sup quad Periphery Retina is attached with heme in 4 quadrants Retina is attached with heme in 4 quadrants Please refer to large retinal drawing. IMAGING: OCT, Retina - OU - Both Eyes Right Eye Quality was good. Scan locations included subfoveal. Progression has improved. Findings include intraretinal fluid (Non center involving IRF). Left Eye Quality was good. Scan locations included subfoveal. Progression has improved. Findings include intraretinal fluid (Non center-involving). DIAGNOSES: 1. 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 The edema that hehas in both eye is sparring the center. No evidence of ganesh-vessels in either eye that would require laser treatment at this time. 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 JOSSELINE Arcos (Scribe) documented in this encounter Plan of Treatment Upcoming Encounters Date Type Department Care Team (Late st Contact Info) Description 12/06/2024 6:45 EST Treatment [facility] - [place] [address] [place], [place] [phone] Carlota Jin MD [address] [phone] 12/08/2024 6:45 EST Treatment [facility] [place] [address] [place], [place] [id number] Carlota Jin MD 1 [facility] 2 [place] [phone] 12/11/2024 6:45 EST Treatment [facility] [place] [address] [place], [place] [id number] Carlota Jin MD 1 [facility] 2 [place] [phone] 12/13/2024 6:45 EST Treatment [facility] [address] [place] [id number] Carlota Jin MD 1 [facility] 2 [place] [phone] 12/15/2024 6:45 EST Treatment [facility] - [place] [address] [place], [place] [address] Carlota Jin MD 1 [facility], [facility] 2 [place] [phone] 12/18/2024 6:45 EST Treatment [facility] - [place] [address] [place], [place] [id number] Carlota Jin MD 1 [facility], [facility] 2 [place] [phone] 12/20/2024 6:45 EST Treatment [facility] [place] [address] [place], [place] [id number] Carlota Jin MD 1 [facility], [facility] 2 [place] [phone] 12/22/2024 6:45 EST Treatment [facility] [address] [place], [place] [id number] Carlota Jin MD 1 [facility], [facility] 2 [place] [phone] 12/25/2024 6:45 EST Treatment [facility] [place] [address] [place], [place] [id number] Carlota Jin MD 1 [facility], [facility] 2 [place] [phone] 12/27/2024 6:45 EST Treatment [facility] - [place] [address] [place], [place] [id number] Carlota Jin MD 1 [facility], [facility] 2 [place] [phone] 12/29/2024 6:45 EST Treatment [facility] - [place] [address] [place], [place] [id number] Carlota Jin MD [address] [place] [address], [facility] 2 [place] [phone] 01/01/2025 6:45 EDT Treatment [facility] - [place] [address] [place], [place] [id number] Carlota Jin MD [address] [place] [address], [facility] 2 [place] [phone] 01/03/2025 6:45 EDT Treatment [facility] - [place] [address] [place], [place] [id number] Carlota Jin MD 1 [facility], [facility] 2 [place] [phone] 01/05/2025 6:45 EDT Treatment [facility] - [place] [address] [place], [place] [id number] Carlota Jin MD 1 [facility], [facility] 2 [place] [phone] 01/08/2025 6:45 EDT Treatment [facility] - [place] [address] [place], [place] [id number] Carlota Jin MD 1 [facility], Level [address] [place] [phone] 01/10/2025 6:45 EDT Treatment [facility] - [place] [address] [place], [place] [address] Carlota Jin MD 1 [facility], [facility] 2 [place] [phone] 01/12/2025 6:45 EDT Treatment [facility] [address] [place], [place] [id number] Carlota Jin MD 1 [facility], [facility] 2 [place] [phone] 01/15/2025 6:45 EDT Treatment [facility] - [place] [address] [place], [place] [id number] Carlota Jin MD 1 [facility], [facility] 2 [place] [phone] 01/17/2025 6:45 EDT Treatment [facility] [address] [place], [place] [address] Carlota Jin MD 1 [facility], [facility] 2 [place] [phone] 01/19/2025 6:45 EDT Treatment [facility] [address] [place], [place] [id number] Carlota Jin MD 1 [facility], [facility] 2 [place] [phone] 01/22/2025 6:45 EDT Treatment [facility] - [place] [address] [place], [place] [id number] Carlota Jin MD 1 [facility], [facility] 2 [place] [phone] 01/24/2025 6:45 EDT Treatment [facility] - [place] [address] [place], [place] [id number] Carlota Jin MD 1 [facility], [facility] 2 [place] [phone] 01/26/2025 6:45 EDT Treatment [facility] - [place] [address] [place], [place] [id number] Carlota Jin MD 1 [facility], [facility] 2 [place] [phone] 01/29/2025 6:45 EDT Treatment [facility] - [place] [address] [place], [place] [id number] Carlota Jin MD 1 [facility], [facility] 2 [place] [phone] 01/31/2025 6:45 EDT Treatment [facility] - [place] [address] [place], [place] [id number] Carlota Jin MD 1 [facility], [facility] 2 [place] [phone] 02/02/2025 6:45 EDT Treatment [facility] - [place] [address] [place], [place] [phone] Carlota Jin MD 1 [facility], [facility] 2 [place] [phone] 02/05/2025 6:45 EDT Treatment [facility] - [place] [address] [place], [place] [id number] Carlota Jin MD 1 [facility], [facility] 2 [place] [phone] 02/07/2025 6:45 EDT Treatment [facility] - [place] [address] [place] [address] Carlota Jin MD 1 [facility], [address] [phone] 02/09/2025 6:45 EDT Treatment [facility] - [place] [address] [place], [place] [id number] Carlota Jin MD 1 [facility], [address] [phone] 02/12/2025 6:45 EDT Treatment [facility] - [place] [address] [place] [address] Carlota Jin MD 1 [facility], [facility] 2 [place] [phone] 02/14/2025 6:45 EDT Treatment [facility] - [place] [address] [place], [place] [id number] Carlota Jin MD 1 [facility], [facility] 2 [place] [phone] 02/16/2025 6:45 EDT Treatment [facility] - [place] [address] [place], [place] [id number] Carlota Jin MD 1 [facility], [facility] 2 [place] [address] 02/19/2025 6:45 EDT Treatment [facility] - [place] [address] [place], [place] [id number] Carlota Jin MD [address] [place] [address], [facility] 2 [place] [phone] 02/21/2025 6:45 EDT Treatment [facility] - [place] [address] [place], [place] [id number] Carlota Jin MD [address] [place] [address], [facility] 2 [place] [phone] documented as of this encounter Procedures Procedure Name Priority Date/Time Associated Diagnosis Comments OCT, RETINA - OU - BOTH EYES Routine 10/14/2021 11:17 EST 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 Scan locations included subfoveal. Progression has improved. Findings include intraretinal fluid (Non center involving IRF). Left Eye Quality was good. Scan locations included subfoveal. Progression has improved. Findings include intraretinal fluid (Non center-involving). 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 associated with type 2 diabetes mellitus (HCC-CMS)- Primary documented in this encounter Eye Exam Visual Acuity (Snellen - Linear) Right eye Left eye Dist sc 20/40 -2 20/40 -1 Dist ph sc 20/25 -1 20/25 -1 Tonometry (Applanation, 10:10) Right eye Left eye Pressure 18 16 Pupils Pupils Dark Light Shape React APD Right eye PERRL 4 3 Round Brisk None Left eye PERRL 4 3 Round Brisk None Visual Monk (Counting fingers) Right eye Left eye Full Full Extraocular Movement Right eye Left eye Full, Ortho Full, Ortho Neuro/Psych Oriented x3: Yes Mood/Affect: Normal Dilation Both eyes: Tropicamide 1%, P henylephrine 2.5% @ 10:11 Slit Lamp Exam Right eye Left eye [...] Microaneurysms Vessels Beading, no neovessels Beading, no neovessels, IRMAs sup quad Periphery Retina is attached w ith heme in 4 quadrants Retina is attached with heme in 4 quadrants Care Teams Derrick Boat Leverman Relationship Specialty Start Date End Date Adeola Villegas APRN [address] [place] [address] PCP - General 10/12/16 07/06/23 documented as of this encounter
--- OUTSIDE RECORDS SUMMARY | 2024-12-05 12:32 | XMS_ITS | Encounter Summary ---
Author Organization [facility] Address [address] [place] [address] Care Team Providers Care Audit Director Name Role Phone Adeola Villegas APRN Primary Care Provider [phone] Encounter Details Date Type Department Care Team (Late st Contact Info) Description 11/16/2022 7:15 EST Treatment [facility] [address] [place], [place] [phone] Carlota Jin MD 1 [facility], Level [address] [place] [phone] ESRD (end stage renal disease) ([facility]) (Primary Dx) Social History Tobacco Use [...] - Temperature - - Respiratory Rate 16 11/16/2022 0708 EST Oxygen Saturation - - Inhaled Oxygen Concentration - - Weight 92.1 kg (203 lb 0.7 oz) 11/16/[address] Height - - Body Mass Index - - documented in this encounter Miscellaneous Notes * Flowsheet Note - Melissa Crespo RN - 11/16/2022 1503 EST 11/16/22 1130 Post-Hemodialysis Assessment Total Blood Processed (L) 90.2 Liters Dialyzer Clearance Lightly streaked Treatment UFR (ml:kg:hr) 6.5 ml:kg:hr Critline refill Negative Fluid Removed (L) 2.5 L Post-Dialysis Scale Weight 89.7 kg (197 lb 12 oz) Wheelchair Weight 0 kg (0 lb) Prosthesis Weight 0 kg (0 lb) Post-Treatment Weight (kg) 89.7 Treatment Weight Change (kg) 2.4 kg Day Target Weight (kg) 90.1 Post Sitting/Lying BP 156/82 Post Sitting/Lying pulse 63 Post Standing BP 137/75 Post Standing Pulse 64 Temp 36.7 ??C (98.1 ??F) Temp [...] Dialysis Rounding - Carlota Jin MD - 11/16/2022 0715 EST TELEMEDICINE VIDEO VISIT Today's visit was provided through telemedicine video conferencing: I have reviewed the appropriateness of using video technology with the patient with regards to today's visit. The location of the patient : [facility] Patient location state: Visit Location State: [place] The location of the provider: Office Provider location state: Visit Location State: [place] The following people and their roles were present for today's visit: Appointment Provider: Carlota Jin MD, VIDYA Newman MD Dialysis Provider's Routine Assessment Gerson Bruner was seen and examined as appropriate during Dialysis. Pertinent lab results were reviewed. Changes since last visit: This is his first session at [facility] Changes to current prescriptions/orders: None This is my first encounter with Mr. Bruner. Will do comprehensive visit in November. Carlota Jin MD The concept of ???Telemedicine?? [...] Treatment [facility] - [place] [address] [place], [place] [phone] Carlota Jin MD [address] [phone] 12/08/2024 6:45 EST Treatment [facility] [address] [place], [place] [phone] Carlota Jin MD [address] [phone] 12/11/2024 6:45 EST Treatment [facility] [address] [place], [place] [phone] Carlota Jin MD [address] [phone] 12/13/2024 6:45 EST Treatment [facility] [address] [place], [place] [phone] Carlota Jin MD [address] [phone] 12/15/2024 6:45 EST Treatment [facility] - [place] [address] [place], [place] [phone] Carlota Jin MD 1 [facility], [facility] 2 [place] [phone] 12/18/2024 6:45 EST Treatment [facility] - [place] [address] [place], [place] [phone] Carlota Jin MD 1 [facility], [facility] 2 [place] [phone] 12/20/2024 6:45 EST Treatment [facility] - [place] [address] [place] [address] Carlota Jin MD 1 [facility], [facility] 2 [place] [phone] 12/22/2024 6:45 EST Treatment [facility] - [place] [address] [place] [address] Carlota Jin MD 1 [facility], [facility] 2 [place] [phone] 12/25/2024 6:45 EST Treatment [facility] - [place] [address] [place], [place] [phone] Carlota Jin MD 1 [facility], [address] [place] [phone] 12/27/2024 6:45 EST Treatment [facility] - [place] [address] [place], [place] [phone] Carlota Jin MD 1 [facility], [address] [phone] 12/29/2024 6:45 EST Treatment [facility] - [place] [address] [place] [address] Carlota Jin MD 1 [facility], [address] [phone] 01/01/2025 6:45 EDT Treatment [facility] - [place] [address] [place], [place] [phone] Carlota Jin MD 1 [facility], [address] [phone] 01/03/2025 6:45 EDT Treatment [facility] - [place] [address] [place], [place] [phone] Carlota Jin MD 1 [facility], [address] [phone] 01/05/2025 6:45 EDT Treatment [facility] - [place] [address] [place], [place] [phone] Carlota Jin MD [address] [phone] 01/08/2025 6:45 EDT Treatment [facility] - [place] [address] [place], [place] [phone] Carlota Jin MD 1 [facility], [facility] 2 [place] [phone] 01/10/2025 6:45 EDT Treatment [facility] - [place] [address] [place], [place] [phone] Carlota Jin MD 1 [facility], [facility] 2 [place] [phone] 01/12/2025 6:45 EDT Treatment [facility] - [place] [address] [place], [place] [phone] Carlota Jin MD 1 [facility], [facility] 2 [place] [phone] 01/15/2025 6:45 EDT Treatment [facility] - [place] [address] [place], [place] [phone] Carlota Jin MD 1 [facility], [facility] 2 [place] [phone] 01/17/2025 6:45 EDT Treatment [facility] - [place] [address] [place], [place] [phone] Carlota Jin MD 1 [facility], [facility] 2 [place] [phone] 01/19/2025 6:45 EDT Treatment [facility] [place] [address] [place], [place] [phone] Carlota Jin MD 1 [facility], [facility] 2 [place] [phone] 01/22/2025 6:45 EDT Treatment [facility] - [place] [address] [place], [place] [phone] Carlota Jin MD 1 [facility], [facility] 2 [place] [phone] 01/24/2025 6:45 EDT Treatment [facility] - [place] [address] [place], [place] [phone] Carlota Jin MD 1 [facility], [facility] 2 [place] [phone] 01/26/2025 6:45 EDT Treatment [facility] - [place] [address] [place], [place] [phone] Carlota Jin MD 1 [facility], [address] [phone] 01/29/2025 6:45 EDT Treatment [facility] - [place] [address] [place], [place] [phone] Carlota Jin MD 1 [facility], [address] [phone] 01/31/2025 6:45 EDT Treatment [facility] - [place] [address] [place], [place] [phone] Carlota Jin MD 1 [facility], [facility] 2 [place] [phone] 02/02/2025 6:45 EDT Treatment [facility] - [place] [address] [place], [place] [phone] Carlota Jin MD 1 [facility], Level [address] [place] [phone] 02/05/2025 6:45 EDT Treatment [facility] - [place] [address] [place], [place] [phone] Carlota Jin MD 1 [facility], [facility] 2 [place] [phone] 02/07/2025 6:45 EDT Treatment [facility] - [place] [address] [place], [place] [phone] Carlota Jin MD 1 [facility], [facility] 2 [place] [phone] 02/09/2025 6:45 EDT Treatment [facility] - [place] [address] [place], [place] [phone] Carlota Jin MD 1 [facility], [facility] 2 [place] [phone] 02/12/2025 6:45 EDT Treatment [facility] - [place] [address] [place] [address] Carlota Jin MD 1 [facility], [facility] 2 [place] [phone] 02/14/2025 6:45 EDT Treatment [facility] - [place] [address] [place], [place] [phone] Carlota Jin MD 1 [facility], [facility] 2 [place] [phone] 02/16/2025 6:45 EDT Treatment [facility] - [place] [address] [place], [place] [phone] Carlota Jin MD 1 [facility], [facility] 2 [place] [phone] 02/19/2025 6:45 EDT Treatment [facility] - [place] [address] [place], [place] [phone] Carlota Jin MD 1 [facility], [facility] 2 [place] [phone] 02/21/2025 6:45 EDT Treatment [facility] - [place] [address] [place], [place] [phone] Carlota Jin MD 1 [facility], [facility] 2 [place] [phone] documented as of this encounter Procedures Procedure Name Priority Date/Time Associated Diagnosis Comments POSTDIALYSIS BUN WITH URR CALCULATION Routine 11/16/2022 11:33 EST ESRD (end stage renal disease) ([facility]) TRANSFERRIN SATURATION Routine 11/16/2022 7:12 EST ESRD (end stage renal disease) ([facility]) VITAMIN D (25,OH) Routine 11/16/2022 7:1 2 EST ESRD (end stage renal disease) ([facility]) DIALYSIS ROUTINE - DIALYSIS ONLY (BUN, K, NA, CL, CO2, SANJEEV, ALB, MG, PHOS, ALKP, AST) Routine 11/16/2022 7:12 EST ESRD (end stage renal disease) ([facility]) PROFILE IRON STUDIES (INCLUDES IRON, IBC, AND FERRITIN) Routine 11/16/2022 7:12 EST ESRD (end stage renal disease) ([facility]) DIALYSIS HEPATITIS- DIALYSIS USE ONLY Routine 11/16/2022 7:12 EST ESRD (end stage renal disease) ([facility]) BUN, PREDIALYSIS Routine 11/16/2022 7:12 EST ESRD (end stage renal disease) ([facility]) PTH INTACT Routine 11/16/2022 7:12 EST ESRD (end stage renal disease) ([facility]) COMPLETE BLOOD COUNT Routine 11/16/2022 7:12 EST ESRD (end stage renal disease) ([facility]) FOLATE Routine 11/16/2022 7:12 EST ESRD (end stage renal disease) ([facility]) FERRITIN Routine 11/16/2022 7:12 EST ESRD (end stage renal disease) ([facility]) VITAMIN B12 Routine 11/16/2022 7:12 EST ESRD (end stage renal disease) ([facility]) CREATININE Routine 11/16/2022 7:12 EST ESRD (end stage renal disease) ([facility]) HEMODIALYSIS Routine 11/16/2022 7:08 EST ESRD (end stage renal disease) ([facility]) documented in this encounter Results * (ABNORMAL) POSTDIALYSIS BUN WITH URR CALCULATION (11/16/2022 11:33 EST) BUN, Postdialysis 18 10 - 26 mg/dL 11/16/2022 21:51 EST [facility] Urea Reduction Rate 71.4 Not Established % 11/16/2022 21:51 EST [facility] Comment: NOTE: Reference range not established for Urea Reduction Rate. BUN 63(H) 10 - 26 mg/dL 11/16/2022 21:51 EST [facility] Blood VENOUS BLOOD / Unknown Venipuncture / Unknown 11/16/2022 11:33 EST 11/16/2022 11:33 EST us Carlota Jin MD CHEMISTRY & BLOOD GAS ORD ERABLES Final Result Performing Organization Address [facility]/ZIP Co de Phone Number [facility] [address] [place] [address] * (ABNORMAL) FERRITIN (11/16/2022 7:12 EST) Ferritin 773(H) 22 - 322 ng/mL 11/16/2022 22:08 EST [facility] Blood VENOUS BLOOD / Unknown Venipuncture / Unknown 11/16/2022 7:12 EST 11/16/2022 8:18 EST us Carlota Jin MD CHEMISTRY & BLOOD GAS ORD ERABLES Final Result Performing Organization Address [facility] Co de Phone Number [facility] [address] [place] [address] * (ABNORMAL) TRANSFERRIN SATURATION (11/16/2022 7:12 EST) Iron 67 49 - 181 ??g/dL 11/16/2022 21:58 EST [facility] Iron Binding Capacity 233(L) 240 - 450 ??g/dL 11/16/2022 21:58 EST [facility] Transferrin Saturation 29 15 - 45 % 11/16/2022 21:58 EST [facility] Blood VENOUS BLOOD / Unknown Venipuncture / Unknown 11/16/2022 7:12 EST 11/16/2022 8:18 EST us Carlota Jin MD CHEMISTRY & BLOOD GAS ORD ERABLES Final Result Performing Organization Address [facility]/ZIP Co de Phone Number [facility] [address] [place] [address] * (ABNORMAL) BUN, PREDIALYSIS (11/16/2022 7:12 EST) BUN, Predialysis 63(H) 10 - 26 mg/dL 11/16/2022 21:49 EST [facility] Blood VENOUS BLOOD / Unknown Venipuncture / Unknown 11/16/2022 7:12 EST 11/16/2022 8:18 EST us Carlota Jin MD CHEMISTRY & BLOOD GAS ORD ERABLES Final Result Performing Organization Address [facility] Co de Phone Number [facility] [address] [place] [address] * (ABNORMAL) VITAMIN D (25,OH) (11/16/2022 7:12 EST) 25OH Vitamin D Tot 27(L) 30 - 100 ng/mL 11/17/2022 10:27 EST [facility] Comment: Vitamin D 25,OH Interpretive Ranges: Deficiency: ??<10.0 ng/mL Insufficiency: ??10.0 - 30.0 ng/mL Sufficiency: ??30.0 - 100.0 ng/mL Toxicity: ??>100.0 ng/mL Blood VENOUS BLOOD / Unknown Venipuncture / Unknown 11/16/2022 7:12 EST 11/16/2022 8:18 EST us Carlota Jin MD CHEMISTRY & BLOOD GAS ORD ERABLES Final Result Performing Organization Address City/[facility]/ZIP Co de Phone Number [facility] [address] [place] [address] * VITAMIN B12 (11/16/2022 7:12 EST) Vitamin B12 688 211 - 911 pg/mL 11/16/2022 22:03 EST [facility] Blood VENOUS BLOOD / Unknown Venipuncture / Unknown 11/16/2022 7:12 EST 11/16/2022 8:18 EST us Carlota Jin MD CHEMISTRY & BLOOD GAS ORD ERABLES Final Result Performing Organization Address [facility]/ZIP Co de Phone Number [facility] [address] [place] [address] * (ABNORMAL) PTH INTACT (11/16/2022 7:12 EST) [facility] Intact PTH 266(H) 19 - 88 pg/mL 11/16/2022 22:09 EST [facility] Blood VENOUS BLOOD / Unknown Venipuncture / Unknown 11/16/2022 7:12 EST 11/16/2022 8:18 EST Carlota Jin MD CHEMISTRY & BLOOD GAS ORD ERABLES Final Result Performing Organization Address [facility] de Phone Number [facility] [address] [place] [address] * FOLATE (11/16/2022 7:12 EST) [facility] Folate 17.3 See Note ng/mL 11/16/2022 22:13 EST [facility] Comment: Reference Ranges for Folate: Deficient: ?< 3.4 ng/mL Indeterminate: ??3.4 - 5.4 ng/mL Normal: ? > 5.4 ng/mL The results of this assay can be falsely elevated due to the consumption of Biotin. Blood VENOUS BLOOD / Unknown Venipuncture / Unknown 11/16/2022 7:12 EST 11/16/2022 8:18 EST Carlota Jin MD CHEMISTRY & BLOOD GAS ORD ERABLES Final Result Performing Organization Address [facility] Co de Phone Number [facility] [address] [place] [address] * (ABNORMAL) DIALYSIS ROUTINE - DIALYSIS ONLY (BUN, K, NA, CL, CO2, SANJEEV, ALB, MG, PHOS, ALKP, AST) (11/16/2022 7:12 EST) [facility] Sodium 136 136 - 145 mmol/L 11/16/2022 21:49 [facility] Potassium 5.4(H) 3.5 - 5.0 mmol/L 11/16/2022 21:49 [facility] Chloride 99 96 - 110 mmol/L 11/16/2022 21:49 [facility] CO2 Total 25 22 - 32 mmol/L 11/16/2022 21:49 [facility] Calcium 8.7 8.5 - 10.5 mg/dL 11/16/2022 21:49 [facility] Albumin 3.6 3.4 - 4.9 g/dL 11/16/2022 21:49 [facility] Phosphorus 6.5(H) 2.5 - 4.5 mg/dL 11/16/2022 21:49 [facility] Calcium Phos Product 56.6 See Note mg/dL 11/16/2022 21:49 [facility] Comment: NOTE: Reference range not established BUN, Predialysis 63(H) 10 - 26 mg/dL 11/16/2022 21:49 [facility] AST 22 15 - 46 U/L 11/16/2022 21:49 [facility] Alkaline Phosphatase 90 38 - 126 U/L 11/16/2022 21:49 [facility] Magnesium 2.8 1.7 - 2.8 mg/dL 11/16/2022 21:49 [facility] Anion Gap 12 5 - 14 11/16/2022 21:49 [facility] Calculated Calcium 9.0 8.9 - 10.5 mg/dL 11/16/2022 21:49 [facility] Blood VENOUS BLOOD / Unknown Venipuncture / Unknown 11/16/2022 7:12 EST 11/16/2022 8:18 EST us Carlota Jin MD CHEMISTRY & BLOOD GAS ORD ERABLES Final Result [facility] [address] [place] [address] * DIALYSIS HEPATITIS- DIALYSIS USE ONLY (11/16/2022 7:12 EST) Hep B Surface Ag Negative Negative 11/17/19 9:54 [facility] Hep B Surface Ab, Quantitative 325.9 See Note mIU/mL 11/17/2022 9:54 [facility] Comment: Reference Range for Hep B Surface Ab, Quant: Positive: >= 10.0 mIU/mL Negative: ??< 10.0 mIU/mL Patient is presumed to be immune to infection with Hepatitis B Virus. Hep B Surface Ab, Qualitative Positive See Note 11/17/2022 9:54 [facility] Comment: Reference Range for Hep B Surface Ab, Qual: Unvaccinated: ??Negative Vaccinated: ??Positive Hepatitis B Core Ab, Total Negative Negative 11/17/2022 9:54 [facility] Hep C Antibody Negative Negative 11/17/2022 9:54 [facility] Blood VENOUS BLOOD / Unknown Venipuncture / Unknown 11/16/2022 7:12 EST 11/16/2022 8:18 EST us Carlota Jin MD CHEMISTRY & BLOOD GAS ORD ERABLES Final Result Performing Organization Address City/[facility] Co de Phone Number [facility] [address] [place] [address] * (ABNORMAL) CREATININE (11/16/2022 7:12 EST) Creatinine 8.48(H) 0.66 - 1.25 mg/dL 11/16/2022 21:49 [facility] Comment:Elevated initial cre atinine or critical change in creatinine value. eGFR 7(L) >60 mL/min/1.7 3m2 11/16/2022 21:49 [facility] Blood VENOUS BLOOD / Unknown Venipuncture / Unknown 11/16/2022 7:12 EST 11/16/2022 8:18 EST Carlota Jin MD CHEMISTRY & BLOOD GAS ORD ERABLES Final Result Performing Organization Address City/[facility]/ZIP Co de Phone Number [facility] [address] [place] [address] * (ABNORMAL) COMPLETE BLOOD COUNT (11/16/2022 7:12 EST) WBC 6.56 4.00 - 10.40 K/cmm 11/16/2022 21:33 [facility] RBC 3.22(L) 4.36 - 5.78 M/cmm 11/16/2022 21:33 [facility] Hemoglobin 10.6(L) 13.8 - 17.3 gm/dL 11/16/2022 21:33 [facility] HCT 30.9(L) 39.5 - 50.2 % 11/16/2022 21:33 [facility] MCV 96(H) 81 - 95 fl 11/16/2022 21:33 [facility] MCH 32.9 27.6 - 33.0 pg 11/16/2022 21:33 [facility] MCHC 34.3 32.8 - 36.4 gm/dL 11/16/2022 21:33 [facility] RDW-CV 13.2 <14.2 % 11/16/2022 21:33 [facility] RDW-SD 46.2(H) <46.0 fl 11/16/2022 21:33 [facility] PLT 250 141 - 377 K/cmm 11/16/2022 21:33 [facility] MPV 11.4 9.5 - 12.7 fl 11/16/2022 21:33 [facility] Blood VENOUS BLOOD / Unknown Venipuncture / Unknown 11/16/2022 7:12 EST 11/16/2022 8:18 EST us Carlota Jin MD HEMATOLOGY & PF4 ORDERABL ES Final Result [facility] [address] [place] [address] documented in this encounter Visit Diagnoses Diagnosis ESRD (end stage renal disease) ([facility])- Primary End stage renal disease documented in this encounter Administered Medications Inactive Administered Medications - up to 3 most recent administrations Medication Order MAR Action Action Date Dose Rate Site heparin injection 9,000 Units 9,000 Units, intravenous, ONCE IN DIALYSIS, 1 dose, On Wed11/16/22 at 0730, Routine, Dialysis, Now x1 bolus 4500 units to be given at the beginning of dialysis 1500 units/hour to be given over the course of dialysis (9000 units total). Stop 1 hour prior to end of treatment. To be administered per Policy [id number].Indications:ESRD (end stage renal disease) ([facility]) Given 11/16/2022 7:52 EST 9,000 Units documented in this encounter Orders Medications Ordered That Davide ht Not Have Been Administered Count Last Ordered Date First Ordered Date heparin injection 9,000 Units 1 11/16/2022 Dialysis Count Last Ordered Date First Orde red Date HEMODIALYSIS 1 11/16/2022 documented in this encounter Care Teams Audit Director Relationship Specialty Start Date End Date Adeola Villegas APRN [address] [place] [address] PCP - General 10/12/16 07/06/23 documented as of this encounter
--- OUTSIDE RECORDS SUMMARY | 2024-12-05 12:32 | XMS_ITS | Encounter Summary ---
Author Organization [facility] Address [address] [place] [address] Care Team Providers Care Energy And Sustainability Manager Name Role Phone Priya Wallace MD Primary Care Provider [phone] Encounter Details Date Type Department Care Team (Latest Contact Info) Description 10/08/2016 13:55 EST - 10/08/2016 23:59 EST Hospital Encounter [address] [address] Unknown, Provider, Discharge Disposition: Home or Self Care Social History Tobacco Use Types Packs/Day Years Used Date Smoking Tobacco: Never Assessed Sex and Gender Information Value Date Recorded Sex Assigned at Not on file Legal Sex Male 18:49 EST Gender Identity Male 07/07/2023 14:11 EDT Sexual Orientation Not on file documented as of this encounter Discharge Disposition Disposition Code Departure Means Destination Home or Self Correction documented in this encounter Plan of Treatment Upcoming Encounters Date Type Department Care Team (Late st Contact Info) Description 12/06/2024 6:45 EST Treatment [facility] [place] [address] [place], [place] [phone] Carlota Jin MD [address] [place] [address], Level 2 [place] [phone] 12/08/2024 6:45 EST Treatment [facility] [place] [address] [place] [place], [place] [phone] Carlota Jin MD 1 [facility], [facility] 2 [place] [phone] 12/11/2024 6:45 EST Treatment [facility] [place] [address] [place], [place] [phone] Carlota Jin MD 1 [facility], [facility] 2 [place] [phone] 12/13/2024 6:45 EST Treatment [facility] [place] [address] [place] [address] Carlota Jin MD 1 [facility], [facility] 2 [place] [phone] 12/15/2024 6:45 EST Treatment [facility] [place] [address] [place] [address] Carlota Jin MD 1 [facility], [facility] 2 [place] [phone] 12/18/2024 6:45 EST Treatment [facility] [place] [address] [place], [place] [id number] Carlota Jin MD 1 [facility], [facility] 2 [place] [phone] 12/20/2024 6:45 EST Treatment [facility] [place] [address] [place], [place] [id number] Carlota Jin MD 1 [facility], [facility] 2 [place] [phone] 12/22/2024 6:45 EST Treatment [facility] [place] [address] [place], [place] [id number] Carlota Jin MD 1 [facility], [facility] 2 [place] [phone] 12/25/2024 6:45 EST Treatment [facility] [place] [address] [place], [place] [id number] Carlota Jin MD 1 [facility], [facility] 2 [place] [phone] 12/27/2024 6:45 EST Treatment [facility] [address] [place], [place] [id number] Carlota Jin MD 1 [facility], [facility] 2 [place] [phone] 12/29/2024 6:45 EST Treatment [facility] [address] [place], [place] [id number] Carlota Jin MD 1 [facility], [facility] 2 [place] [phone] 01/01/2025 6:45 EDT Treatment [facility] [address] [place], [place] [id number] Carlota Jin MD 1 [facility], [facility] 2 [place] [phone] 01/03/2025 6:45 EDT Treatment [facility] [address] [place], [place] [id number] Carlota Jin MD 1 [facility], [facility] 2 [place] [phone] 01/05/2025 6:45 EDT Treatment [facility] [place] [address] [place], [place] [id number] Carlota Jin MD 1 [facility], [facility] 2 [place] [phone] 01/08/2025 6:45 EDT Treatment [facility] [place] [address] [place], [place] [id number] Carlota Jin MD 1 [facility], [facility] 2 [place] [phone] 01/10/2025 6:45 EDT Treatment [facility] [place] [address] [place], [place] [phone] Carlota Jin MD 1 [facility], [facility] 2 [place] [phone] 01/12/2025 6:45 EDT Treatment [facility] [place] [address] [place], [place] [id number] Carlota Jin MD 1 [facility], [facility] 2 [place] [phone] 01/15/2025 6:45 EDT Treatment [facility] [place] [address] [place], [place] [id number] Carlota Jin MD 1 [facility], [facility] 2 [place] [phone] 01/17/2025 6:45 EDT Treatment [facility] [place] [address] [place], [place] [id number] Carlota Jin MD 1 [facility], [facility] 2 [place] [phone] 01/19/2025 6:45 EDT Treatment [facility] [place] [address] [place], [place] [id number] Carlota Jin MD 1 [facility], [facility] 2 [place] [phone] 01/22/2025 6:45 EDT Treatment [facility] [place] [address] [place], [place] [id number] Carlota Jin MD 1 [facility], [facility] 2 [place] [phone] 01/24/2025 6:45 EDT Treatment [facility] [place] [address] [place], [place] [address] Carlota Jin MD 1 [facility], [facility] 2 [place] [phone] 01/26/2025 6:45 EDT Treatment [facility] [place] [address] [place], [place] [id number] Carlota Jin MD 1 [facility], [facility] 2 [place] [phone] 01/29/2025 6:45 EDT Treatment [facility] [place] [address] [place], [place] [address] Carlota Jin MD 1 [facility], [facility] 2 [place] [phone] 01/31/2025 6:45 EDT Treatment [facility] [place] [address] [place] [address] Carlota Jin MD 1 [facility], [facility] 2 [place] [phone] 02/02/2025 6:45 EDT Treatment [facility] [place] [address] [place], [place] [address] Carlota Jin MD 1 [facility], [address] [phone] 02/05/2025 6:45 EDT Treatment [facility] [place] [address] [place], [place] [id number] Carlota Jin MD 1 [facility], [address] [phone] 02/07/2025 6:45 EDT Treatment [facility] [place] [address] [place], [place] [id number] Carlota Jin MD 1 [facility], [address] [phone] 02/09/2025 6:45 EDT Treatment [facility] [place] [address] [place], [place] [phone] Carlota Jin MD 1 [facility], [facility] 2 [place] [phone] 02/12/2025 6:45 EDT Treatment [facility] [place] [address] [place], [place] [id number] Carlota Jin MD 1 [facility], [facility] 2 [place] [phone] 02/14/2025 6:45 EDT Treatment [facility] [place] [address] [place], [place] [id number] Carlota Jin MD 1 [facility], [address] [phone] 02/16/2025 6:45 EDT Treatment [facility] [place] [address] [place] [address] Carlota Jin MD 1 [facility], [address] [phone] 02/19/2025 6:45 EDT Treatment [facility] [place] [address] [place], [place] [id number] Carlota Jin MD 1 [facility], [address] [phone] 02/21/2025 6:45 EDT Treatment [facility] [place] [address] [place], [place] [phone] Carlota Jin MD 1 [facility], [facility] 2 [place] [phone] documented as of this encounter Visit Diagnoses Not on filedocumented in this encounter Care Teams Energy And Sustainability Manager Relationship Specialty Start Date End Date Priya Wallace MD [address] [place] [phone] PCP - General 03/20/10 10/11/16 documented as of this encounter
--- OUTSIDE RECORDS SUMMARY | 2024-12-05 12:32 | XMS_ITS | Encounter Summary ---
Author Organization [facility] Address [address] [place] [address] Care Team Providers Care Arbitrator Name Role Phone Adeola Villegas MONA Primary Care Provider [phone] Ken Greer MD Primary Care Provider [phone] Kiel Powers Unavailable Unavailable Encounter Details Date Type Department Care Team (Late st Contact Info) Description 11/13/2022 Documentation Visit [facility] [place] [address] [place] [id number] Marcela Cox, VIDYA Social History Tobacco Use [...] [facility] [place] [address] [place] [phone] Carlota Jin MD 1 [facility], Level [address] [place] [address] 12/08/2024 6:45 EST Treatment [facility] [place] [address] [place] [id number] Carlota Jin MD 1 [facility], Level [address] [place] [phone] 12/11/2024 6:45 EST Treatment [facility] [place] [address] [place], [place] [address] Carlota Jin MD 1 [facility], [facility] 2 [place] [phone] 12/13/2024 6:45 EST Treatment [facility] [place] [address] [place] [address] Carlota Jin MD 1 [facility], [facility] 2 [place] [phone] 12/15/2024 6:45 EST Treatment [facility] [place] [address] [place] [address] Carlota Jin MD 1 [facility], [facility] 2 [place] [phone] 12/18/2024 6:45 EST Treatment [facility] [address] [place], [place] [phone] Carlota Jin MD 1 [facility], [facility] 2 [place] [phone] 12/20/2024 6:45 EST Treatment [facility] [place] [address] [place], [place] [id number] Carlota Jin MD 1 [facility], [facility] 2 [place] [phone] 12/22/2024 6:45 EST Treatment [facility] [place] [address] [place], [place] [id number] Carlota Jin MD 1 [facility], [facility] 2 [place] [phone] 12/25/2024 6:45 EST Treatment [facility] [place] [address] [place], [place] [id number] Carlota Jin MD 1 [facility], [facility] 2 [place] [phone] 12/27/2024 6:45 EST Treatment [facility] [place] [address] [place], [place] [id number] Carlota Jin MD 1 [facility], [facility] 2 [place] [phone] 12/29/2024 6:45 EST Treatment [facility] [place] [address] [place], [place] [id number] Carlota Jin MD 1 [facility], [facility] 2 [place] [phone] 01/01/2025 6:45 EDT Treatment [facility] [place] [address] [place], [place] [id number] Carlota Jin MD 1 [facility], [facility] 2 [place] [phone] 01/03/2025 6:45 EDT Treatment [facility] [place] [address] [place], [place] [id number] Carlota Jin MD 1 [facility], [facility] 2 [place] [phone] 01/05/2025 6:45 EDT Treatment [facility] [place] [address] [place], [place] [id number] Carlota Jin MD 1 [facility], [facility] 2 [place] [phone] 01/08/2025 6:45 EDT Treatment [facility] [place] [address] [place], [place] [id number] Carlota Jin MD 1 [facility], [facility] 2 [place] [phone] 01/10/2025 6:45 EDT Treatment [facility] [place] [address] [place] [address] Carlota Jin MD 1 [facility], [facility] 2 [place] [phone] 01/12/2025 6:45 EDT Treatment [facility] [place] [address] [place] [address] Carlota Jin MD 1 [facility], [facility] 2 [place] [phone] 01/15/2025 6:45 EDT Treatment [facility] [place] [address] [place], [place] [id number] Carlota Jin MD 1 [facility], [facility] 2 [place] [phone] 01/17/2025 6:45 EDT Treatment [facility] [place] [address] [place], [place] [id number] Carlota Jin MD 1 [facility], [facility] 2 [place] [phone] 01/19/2025 6:45 EDT Treatment [facility] [place] [address] [place], [place] [id number] Carlota Jin MD 1 [facility], [facility] 2 [place] [phone] 01/22/2025 6:45 EDT Treatment [facility] [place] [address] [place], [place] [id number] Carlota Jin MD 1 [facility], [facility] 2 [place] [phone] 01/24/2025 6:45 EDT Treatment [facility] [place] [address] [place], [place] [id number] Carlota Jin MD 1 [facility], [facility] 2 [place] [phone] 01/26/2025 6:45 EDT Treatment [facility] [place] [address] [place], [place] [id number] Carlota Jin MD 1 [facility], [facility] 2 [place] [phone] 01/29/2025 6:45 EDT Treatment [facility] [place] [address] [place], [place] [address] Carlota Jin MD 1 [facility], [facility] 2 [place] [phone] 01/31/2025 6:45 EDT Treatment [facility] [place] [address] [place] [address] Carlota Jin MD 1 [facility], [facility] 2 [place] [phone] 02/02/2025 6:45 EDT Treatment [facility] [place] [address] [place], [place] [id number] Carlota Jin MD 1 [facility], [address] [phone] 02/05/2025 6:45 EDT Treatment [facility] [place] [address] [place], [place] [id number] Carlota Jin MD 1 [facility], [address] [phone] 02/07/2025 6:45 EDT Treatment [facility] [place] [address] [place], [place] [id number] Carlota Jin MD 1 [facility], [facility] 2 [place] [phone] 02/09/2025 6:45 EDT Treatment [facility] [place] [address] [place], [place] [id number] Carlota Jin MD 1 [facility], [facility] 2 [place] [phone] 02/12/2025 6:45 EDT Treatment [facility] [place] [address] [place], [place] [id number] Carlota Jin MD [address] [phone] 02/14/2025 6:45 EDT Treatment [facility] [place] [address] [place], [place] [id number] Carlota Jin MD [address] [phone] 02/16/2025 6:45 EDT Treatment [facility] [place] [address] [place], [place] [id number] Carlota Jin MD [address] [place] [phone] 02/19/2025 6:45 EDT Treatment [facility] [place] [address] [place], [place] [id number] Carlota Jin MD [address] [place] [phone] 02/21/2025 6:45 EDT Treatment [facility] [place] [address] [place], [place] [id number] Carlota Jin MD [address] [phone] documented as of this encounter Visit Diagnoses [...] documented as of this encounter Care Teams Arbitrator Relationship Specialty Start Date End Date Adeola Villegas APRN [address] [place] [address] PCP - General 10/12/16 07/06/23 Ken Greer MD [address] [place] [address] PCP - General 07/07/23 Kiel Powers Waste Machine Offbearer Nephrology 05/31/24 documented as of this encounter
--- OUTSIDE RECORDS SUMMARY | 2024-12-05 12:32 | XMS_ITS ---
Author Organization [facility] Address [address] [place] [address] Care Team Providers Care Plate Corrector Name Role Phone Ken Greer MD Primary Care Provider Kiel Powers Unavailable Unavailable Transplant Episode Kidney Candidate [facility] ([place], [place]) - [facility] Evaluation began on 01/06/2024 Marked as Declined on 07/28/2024 Reason: Does Not Meet Medical Criteria Kidney CoordinatorValery Rice RN Phone: N/A Fax: N/A Email: N/A Care Team Name Role Phone Fax Email Valery Rice RN Kidney Coordinator N/A N/A N/A Carlota Jin MD Referring Provider [phone] N/A Ken Greer MD Primary Care Provider [phone] N/A Events Pre-Transplant Referred: 10/04/2023 Evaluation began: 01/06/2024 Committee: 07/24/2024 Dialysis History Dialysis History Start End Type Comments Center 11/16/2022 In-center Hemodialysis [facility] Dialysis Center Information Center Phone Fax Address [facility] [phone] [place] [address]
--- OUTSIDE RECORDS SUMMARY | 2024-12-05 12:32 | XMS_ITS | Encounter Summary ---
Author Organization [facility] Address [facility] [place] [address] Care Team Providers Care Glue Sprayer Name Role Phone Ismael Albarran Primary Care Provider + Encounter Details Date Type Department Care Team (Late st Contact Info) Description 11/06/2024 Telephone Gastroenterology at [facility] [place] [address] Archie Marcum Social History Tobacco Use Types Packs/Day Years Used Date Smoking Tobacco: Every Day Cigarettes Last attempted to quit: 12/26/2018 Smokeless Tobacco: Never Comments:smoking a few a day Alcohol Use Standard Drinks/Week Comments No 0 (1 standard drink = 0.6 oz pur e alcohol) [facility] Utilities [...] place to sleep or slept in a snf (including now)? No 02/20/2024 Housing Stability Vital [...] living in a snf (including now)? No 04/21/2024 DH IPV Inpatient [...] encounter Miscellaneous Notes * Telephone Encounter - Archie Marcum - 11/28/2024 2:33 PM EST No response from patient. Final letter sent. Referral closed. * Telephone Encounter - Archie Marcum - 11/23/2024 12:58 PM EST Inbound/Outbound: Outbound Spoke to Patient/Left Message: Left message Notes: Outbound call to patient to schedule motility lab testing from referral. Left message askingfor callback to schedule. Lvm 2nd attempt. Return calls can be handled by: Motility Lab Mechanical Facilities Technician * Telephone Encounter - Archie Marcum - 11/06/2024 1:19 PM EST Inbound/Outbound: Outbound Spoke to Patient/Left Message: Left message Notes: Outbound call to patient to schedule motility lab testing from referral. Left message askingfor callback to schedule. Return calls can be handled by: [facility] Mechanical Facilities Technician documented in this encounter Plan of Treatment Not on file documented as of this encounter Visit Diagnoses Not on filedocumented in this encounter Care Teams Glue Sprayer Relationship Specialty Start Date End Date Ismael Albarran PA [address] [place] [address] PCP - General Internal Medicine 05/16/24 documented as of this encounter
--- OUTSIDE RECORDS SUMMARY | 2024-12-05 12:32 | XMS_ITS | Encounter Summary ---
Author Organization [facility] Address [address] [place] [address] Care Team Providers Care Fish Checker Name Role Phone Priya Wallace MD Primary Care Provider [phone] Encounter Details Date Type Department Care Team (Late st Contact Info) Description 10/08/2016 Results Only [facility] [phone] Ankur Amin, [address] [facility] NATE WAGNER [address] [place] [address] Social History Tobacco Use Types Packs/Day Years [...] 6:45 EST Treatment [facility] [place] [address] [place], [place] [phone] Carlota Jin MD 1 [facility], Level [address] [place] [address] 12/08/2024 6:45 EST Treatment [facility] [place] [address] [place] [phone] Carlota Jin MD 1 [facility], Level [address] [place] [phone] 12/11/2024 6:45 EST Treatment [facility] [place] [address] [place], [place] [address] Carlota Jin MD 1 [facility], [facility] [address] [place] [phone] 12/13/2024 6:45 EST Treatment [facility] [place] [address] [place], [place] [phone] Carlota Jin MD 1 [facility], [facility] [address] [place] [phone] 12/15/2024 6:45 EST Treatment [facility] [place] [address] [place], [place] [phone] Carlota Jin MD 1 [facility], [facility] [address] [place] [phone] 12/18/2024 6:45 EST Treatment [facility] [place] [address] [place] [address] Carlota Jin MD 1 [facility], [facility] [address] [place] [phone] 12/20/2024 6:45 EST Treatment [facility] [place] [address] [place], [place] [phone] Carlota Jin MD 1 [facility], [facility] [address] [place] [phone] 12/22/2024 6:45 EST Treatment [facility] [place] [address] [place], [place] [phone] Carlota Jin MD 1 [facility], [facility] [address] [place] [phone] 12/25/2024 6:45 EST Treatment [facility] [place] [address] [place], [place] [phone] Carlota Jin MD 1 [facility], [facility] [address] [place] [phone] 12/27/2024 6:45 EST Treatment [facility] [place] [address] [place], [place] [phone] Carlota Jin MD 1 [facility], [facility] [address] [place] [phone] 12/29/2024 6:45 EST Treatment [facility] [place] [address] [place], [place] [phone] Carlota Jin MD 1 [facility], [facility] [address] [place] [phone] 01/01/2025 6:45 EDT Treatment [facility] [place] [address] [place], [place] [phone] Carlota Jin MD 1 [facility], [facility] [address] [place] [phone] 01/03/2025 6:45 EDT Treatment [facility] [place] [address] [place], [place] [phone] Carlota Jin MD 1 [facility], [facility] [address] [place] [address] 01/05/2025 6:45 EDT Treatment [facility] [place] [address] [place], [place] [address] Carlota Jin MD 1 [facility], [facility] [address] [place] [phone] 01/08/2025 6:45 EDT Treatment [facility] [place] [address] [place], [place] [phone] Carlota Jin MD 1 [facility], [facility] [address] [place] [phone] 01/10/2025 6:45 EDT Treatment [facility] [place] [address] [place] [address] Carlota Jin MD 1 [facility], [facility] [address] [place] [phone] 01/12/2025 6:45 EDT Treatment [facility] [place] [address] [place] [address] Carlota Jin MD 1 [facility], [facility] [address] [place] [phone] 01/15/2025 6:45 EDT Treatment [facility] [place] [address] [place], [place] [phone] Carlota Jin MD 1 [facility], [facility] [address] [place] [phone] 01/17/2025 6:45 EDT Treatment [facility] [place] [address] [place], [place] [phone] Carlota Jin MD 1 [facility], [facility] [address] [place] [phone] 01/19/2025 6:45 EDT Treatment [facility] [place] [address] [place], [place] [phone] Carlota Jin MD 1 [facility], [facility] [address] [place] [phone] 01/22/2025 6:45 EDT Treatment [facility] [place] [address] [place] [address] Carlota Jin MD 1 [facility], [address] [phone] 01/24/2025 6:45 EDT Treatment [facility] [place] [address] [place], [place] [phone] Carlota Jin MD 1 [facility], [facility] [address] [place] [phone] 01/26/2025 6:45 EDT Treatment [facility] [place] [address] [place], [place] [phone] Carlota Jin MD 1 [facility], [facility] [address] [place] [phone] 01/29/2025 6:45 EDT Treatment [facility] [place] [address] [place] [address] Carlota Jin MD 1 [facility], [facility] [address] [place] [phone] 01/31/2025 6:45 EDT Treatment [facility] [place] [address] [place] [address] Carlota Jin MD 1 [facility], [facility] [address] [place] [phone] 02/02/2025 6:45 EDT Treatment [facility] [place] [address] [place] [address] Carlota Jin MD 1 [facility], [address] [phone] 02/05/2025 6:45 EDT Treatment [facility] [place] [address] [place] [address] Carlota Jin MD 1 [facility], [address] [phone] 02/07/2025 6:45 EDT Treatment [facility] [place] [address] [place] [address] Carlota Jin MD 1 [facility], [facility] [address] [place] [phone] 02/09/2025 6:45 EDT Treatment [facility] [place] [address] [place], [place] [phone] Carlota Jin MD 1 [facility], [facility] [address] [place] [phone] 02/12/2025 6:45 EDT Treatment [facility] [place] [address] [place], [place] [phone] Carlota Jin MD 1 [facility], [address] [phone] 02/14/2025 6:45 EDT Treatment [facility] [place] [address] [place], [place] [phone] Carlota Jin MD [address] [place] [address], [address] [phone] 02/16/2025 6:45 EDT Treatment [facility] [place] [address] [place], [place] [phone] Carlota Jin MD [address] [place] [address], [address] [phone] 02/19/2025 6:45 EDT Treatment [facility] [place] [address] [place], [place] [address] Carlota Jin MD [address] [place] [address], [address] [phone] 02/21/2025 6:45 EDT Treatment [facility] [address] [place], [place] [phone] Carlota Jin MD 1 [facility], [address] [phone] documented as of this encounter Procedures Procedure Name Priority Date/Time Associated Diagnosis Comments SURGICAL PATHOLOGY Routine 10/08/2016 15 :44 EST documented in this encounter Results * SURGICAL PATHOLOGY (10/08/2016 15:44 EST) Pathology Report: SURGICAL PATHOLOGY REPORT Reports generated via electronic interface contain original data; however they are lacking the format of the original report. Caution should be taken when reading/interpret ing unformatted reports. Name: ? GERSON BONILLA ? Accession #: ? [id number] ? : ? 1965 (Age: 50) ??M ? Collect Date: ? 10/08/2016 ? Location: ? [facility] ? Receive Date: ? 10/09/2016 ? Provider: ANKUR AMIN DO Copy to: RADHA PRITCHARD ASSET PROTECTION MANAGER ? Final Pathologic Diagnosis: A. COLON, SIGMOID POLYP, BIOPSY: - ??Tubular adenoma. B. RECTUM, POLYPS X 2, BIOPSY: - ??Hyperplastic polyps. Document reviewed and electronically signed by: DARREN HARRINGTON MD Report ??Date: 10/12/2016 15:37 By the signature above, the attending physician certifies that he/she has personally conducted a gross and/or microscopic examination of the described specimens and rendered or confirmed the above diagnosis. Specimen(s) Received: A. ??Sigmoid colon polyp B. ??Rectal polyp x2 Clinical History: Hx colon polyp; family hx colon Ca Gross Description: A. ?Received in formalin labelled with proper patient identification (initials V, D) and sigmoid colon polyp is a single pink-simpson tissue fragment (0.4 x 0.3 x 0.2 cm). Submitted intact in A1. B. ?Received in formalin labelled with proper patient identification (initials V, D) and rectal polyp are four pink-simpson tissues (0.3 x 0.2 x 0.2 cm to 0.6 x 0.3 x 0.3 cm). Entirely submitted in B1 and B2. Dr. Cardenas 10/10/2016 6:43 AM End of Report [facility] 10/08/2016 15:4 4 EST 10/09/2016 15:44 EST us Ankur Amin DO PATHOLOGY ORDERABLES Fi nal Result [facility] [address] [place] [address] documented in this encounter Visit Diagnoses Not on filedocumented in this encounter Care Teams Fish Checker Relationship Specialty Start Date End Date Priya Wallace MD [address] [place] [phone] PCP - General 03/20/10 10/11/16 documented as of this encounter
--- OUTSIDE RECORDS SUMMARY | 2024-12-05 12:32 | XMS_ITS | Encounter Summary ---
Author Organization [facility] Address [address] [place] [address] Care Team Providers Care Store Receiving Specialist Name Role Phone Adeola Villegas APRN Primary Care Provider [phone] Encounter Details Date Type Department Care Team (Late st Contact Info) Description 11/17/2022 Documentation Visit [facility] [address] [place], [place] [phone] Yoanna Degroot, VIDYA Social History Tobacco Use [...] Info) Description 12/06/2024 6:45 EST Treatment [facility] [address] [place] [address]85 Carlota Jin MD 1 [facility], [facility] 2 [place] [address] 12/08/2024 6:45 EST Treatment [facility] [address] [place] [phone] Carlota Jin MD [address] [place] [address], [facility] 2 [place] [phone] 12/11/2024 6:45 EST Treatment [facility] [place] [address] [place], [place] [phone] Carlota Jin MD 1 [facility], Level [address] [place] [phone] 12/13/2024 6:45 EST Treatment [facility] [place] [address] [place] [address] Carlota Jin MD 1 [facility], [facility] 2 [place] [phone] 12/15/2024 6:45 EST Treatment [facility] [place] [address] [place], [place] [address] [phone] Carlota Jin MD 1 [facility], [facility] 2 [place] [phone] 12/18/2024 6:45 EST Treatment [facility] [place] [address] [place] [address] Carlota Jin MD 1 [facility], [facility] 2 [place] [phone] 12/20/2024 6:45 EST Treatment [facility] [place] [address] [place], [place] [phone] Carlota Jin MD 1 [facility], Level [address] [place] [phone] 12/22/2024 6:45 EST Treatment [facility] [place] [address] [place], [place] [address] Carlota Jin MD 1 [facility], [facility] 2 [place] [phone] 12/25/2024 6:45 EST Treatment [facility] [place] [address] [place], [place] [address] [phone] Carlota Jin MD 1 [facility], [address] [phone] 12/27/2024 6:45 EST Treatment [facility] [place] [address] [place], [place] [phone] Carlota Jin MD 1 [facility], [address] [phone] 12/29/2024 6:45 EST Treatment [facility] [place] [address] [place], [place] [phone] Carlota Jin MD 1 [facility], [address] [phone] 01/01/2025 6:45 EDT Treatment [facility] [place] [address] [place], [place] [phone] Carlota Jin MD 1 [facility], [address] [phone] 01/03/2025 6:45 EDT Treatment [facility] [place] [address] [place], [place] [phone] Carlota Jin MD 1 [facility], [facility] 2 [place] [phone] 01/05/2025 6:45 EDT Treatment [facility] [place] [address] [place], [place] [phone] Carlota Jin MD 1 [facility], [facility] 2 [place] [phone] 01/08/2025 6:45 EDT Treatment [facility] [place] [address] [place], [place] [phone] Carlota Jin MD 1 [facility], [facility] 2 [place] [phone] 01/10/2025 6:45 EDT Treatment [facility] [place] [address] [place] [address] Carlota Jin MD [address] [place] [address], [facility] 2 [place] [phone] 01/12/2025 6:45 EDT Treatment [facility] [place] [address] [place], [place] [phone] Carlota Jin MD 1 [facility], [facility] 2 [place] [phone] 01/15/2025 6:45 EDT Treatment [facility] [place] [address] [place], [place] [phone] Carlota Jin MD [address] [place] [address], [facility] 2 [place] [phone] 01/17/2025 6:45 EDT Treatment [facility] [place] [address] [place], [place] [address] Carlota Jin MD 1 [facility], [facility] 2 [place] [phone] 01/19/2025 6:45 EDT Treatment [facility] [place] [address] [place], [place] [phone] Carlota Jin MD 1 [facility], [facility] 2 [place] [phone] 01/22/2025 6:45 EDT Treatment [facility] [place] [address] [place], [place] [phone] Carlota Jin MD 1 [facility], [facility] 2 [place] [phone] 01/24/2025 6:45 EDT Treatment [facility] [place] [address] [place], [place] [phone] Carlota Jin MD 1 [facility], [address] [phone] 01/26/2025 6:45 EDT Treatment [facility] [place] [address] [place], [place] [phone] Carlota Jin MD 1 [facility], [facility] 2 [place] [phone] 01/29/2025 6:45 EDT Treatment [facility] [place] [address] [place], [place] [phone] Carlota Jin MD 1 [facility] 2 [place] [phone] 01/31/2025 6:45 EDT Treatment [facility] [place] [address] [place], [place] [address] Carlota Jin MD 1 [facility], [facility] 2 [place] [phone] 02/02/2025 6:45 EDT Treatment [facility] [place] [address] [place], [place] [phone] Carlota Jin MD 1 [facility], [facility] 2 [place] [phone] 02/05/2025 6:45 EDT Treatment [facility] [place] [address] [place], [place] [phone] Carlota Jin MD 1 [facility], [facility] 2 [place] [phone] 02/07/2025 6:45 EDT Treatment [facility] [place] [address] [place] [address] Carlota Jin MD 1 [facility], [facility] 2 [place] [phone] 02/09/2025 6:45 EDT Treatment [facility] [address] [place], [place] [phone] Carlota Jin MD 1 [facility], [facility] 2 [place] [phone] 02/12/2025 6:45 EDT Treatment [facility] [place] [address] [place], [place] [phone] Carlota Jin MD [address] [phone] 02/14/2025 6:45 EDT Treatment [facility] [place] [address] [place], [place] [phone] Carlota Jin MD [address] [place] [phone] 02/16/2025 6:45 EDT Treatment [facility] [place] [address] [place], [place] [phone] Carlota Jin MD [address] [place] [phone] 02/19/2025 6:45 EDT Treatment [facility] [place] [address] [place], [place] [phone] Carlota Jin MD [address] [place] [phone] 02/21/2025 6:45 EDT Treatment [facility] [place] [address] [place], [place] [phone] Carlota Jin MD [address] [place] [phone] documented as of this encounter Visit Diagnoses Not on filedocumented in this encounter Care Teams Store Receiving Specialist Relationship Specialty Start Date End Date Adeola Villegas APRN [address] [place] [address] PCP - General 10/12/16 07/06/23 documented as of this encounter
--- OUTSIDE RECORDS SUMMARY | 2024-12-05 12:32 | XMS_ITS | Encounter Summary ---
Author Organization [facility] Address [address] [place] [address] Care Team Providers Care V Belt Skiver Name Role Phone Adeola Villegas APRN Primary Care Provider [phone] Encounter Details Date Type Department Care Team (Late st Contact Info) Description 11/18/2022 7:15 EST Treatment [facility] [address], [place] [phone] Carlota Jin MD 1 [facility], Level [address] [place] [address] ESRD (end stage renal disease) ([facility]) (Primary Dx) Social History Tobacco Use [...] - Temperature - - Respiratory Rate 16 11/18/2022 0654 EST Oxygen Saturation - - Inhaled Oxygen Concentration - - Weight 91.6 kg (201 lb 15.1 oz) 11/18/2022 0654 EST Height - - Body Mass Index - - documented in this encounter Miscellaneous Notes * Flowsheet Note - Melissa Crespo RN - 11/18/2022 0934 EST 11/18/22 1107 Post-Hemodialysis Assessment Total Blood Processed (L) 90.17 Liters Dialyzer Clearance Lightly streaked Treatment UFR (ml:kg:hr) 7.21 ml:kg:hr Critline refill Negative Fluid Removed (L) 2.5 L Post-Dialysis Scale Weight 89 kg (196 lb 3.4 oz) Wheelchair Weight 0 kg (0 lb) Prosthesis Weight 0 kg (0 lb) Post-Treatment Weight (kg) 89 Treatment Weight Change (kg) 2.6 kg Day Target Weight (kg) 89.6 Post Sitting/Lying BP 138/76 Post Sitting/Lying pulse 63 Post Standing BP 113/60 Post Standing Pulse 66 Temp 35.8 ??C (96.4 ??F) Temp src [...] Dialysis Rounding - Skye Gomez NP - 11/18/2022 0715 EST Dialysis Provider's Routine Assessment Gerson Kimaleks was seen and examined as appropriate during Dialysis. Pertinent lab results were reviewed. Changes since last visit: None Changes to current prescriptions/orders: None First time meeting this patient, he has a lot of appropriate questions. Will need to be smoke free for 6 months to refer to transplant, he has been struggling with smoking cessation. Skye Gomez NP documented in this encounter Plan of Treatment Upcoming Encounters Date Type Department Care Team (Late st Contact Info) Description 12/06/2024 6:45 EST Treatment [facility] [address] [place] [address] Carlota Jin MD 1 [facility], Level [address] [place] [address] 12/08/2024 6:45 EST Treatment [facility] [address] [place], [place] [phone] Carlota Jin MD 1 [facility], [facility] 2 [place] [phone] 12/11/2024 6:45 EST Treatment [facility] Page [address] [place], [place] [phone] Carlota Jin MD 1 [facility], [facility] 2 [place] [phone] 12/13/2024 6:45 EST Treatment [facility] Page [address] [place], [place] [phone] Carlota Jin MD 1 [facility], [facility] 2 [place] [phone] 12/15/2024 6:45 EST Treatment [facility] [address] [place], [place] [phone] Carlota Jin MD 1 [facility], [facility] 2 [place] [phone] 12/18/2024 6:45 EST Treatment [facility] Page [address] [place], [place] [phone] Carlota Jin MD 1 [facility], [facility] 2 [place] [phone] 12/20/2024 6:45 EST Treatment [facility] Page [address] [place], [place] [phone] Carlota Jin MD 1 [facility], [facility] 2 [place] [phone] 12/22/2024 6:45 EST Treatment [facility] - [facility] [address] [place], [place] [phone] Carlota Jin MD 1 [facility], [facility] 2 [place] [phone] 12/25/2024 6:45 EST Treatment [facility] Page [address] [place], [place] [phone] Carlota Jin MD 1 [facility], [address] [phone] 12/27/2024 6:45 EST Treatment [facility] Page [address] [place], [place] [phone] Carlota Jin MD 1 [facility], [address] [phone] 12/29/2024 6:45 EST Treatment [facility] [address] [place], [place] [phone] Carlota Jin MD 1 [facility], [facility] 2 [place] [phone] 01/01/2025 6:45 EDT Treatment [facility] [address] [place], [place] [phone] Carlota Jin MD 1 [facility], [facility] 2 [place] [phone] 01/03/2025 6:45 EDT Treatment [facility] - Page [address] [place], [place] [phone] Carlota Jin MD 1 [facility], [facility] 2 [place] [phone] 01/05/2025 6:45 EDT Treatment [facility] - [place] [address] [place], [place] [phone] Carlota Jin MD 1 [facility], [facility] 2 [place] [phone] 01/08/2025 6:45 EDT Treatment [facility] - Page [address] [place], [place] [phone] Carlota Jin MD 1 [facility], [facility] 2 [place] [phone] 01/10/2025 6:45 EDT Treatment [facility] - Page [address] [place], [place] [phone] Carlota Jin MD 1 [facility], [facility] 2 [place] [phone] 01/12/2025 6:45 EDT Treatment [facility] - [place] [address] [place], [place] [phone] Carlota Jin MD 1 [facility], [facility] 2 [place] [phone] 01/15/2025 6:45 EDT Treatment [facility] [place] [address] [place], [place] [phone] Carlota Jin MD 1 [facility], [facility] 2 [place] [phone] 01/17/2025 6:45 EDT Treatment [facility] - [facility] [address] [place], [place] [phone] Carlota Jin MD 1 [facility], [facility] 2 [place] [phone] 01/19/2025 6:45 EDT Treatment [facility] [address] [place], [place] [phone] Carlota Jin MD 1 [facility], [address] [phone] 01/22/2025 6:45 EDT Treatment [facility] [place] [address] [place], [place] [phone] Carlota Jin MD 1 [facility], [address] [phone] 01/24/2025 6:45 EDT Treatment [facility] [place] [address] [place], [place] [phone] Carlota Jin MD 1 [facility], [address] [phone] 01/26/2025 6:45 EDT Treatment [facility] [place] [address] [place], [place] [phone] Carlota Jin MD 1 [facility], [facility] 2 [place] [phone] 01/29/2025 6:45 EDT Treatment [facility] [address] [place], [place] [phone] Carlota Jin MD 1 [facility], [facility] 2 [place] [phone] 01/31/2025 6:45 EDT Treatment [facility] [place] [address] [place], [place] [phone] Carlota Jin MD 1 [facility], [facility] 2 [place] [phone] 02/02/2025 6:45 EDT Treatment [facility] [address] [place], [place] [address] [phone] Carlota Jin MD 1 [facility], [facility] 2 [place] [phone] 02/05/2025 6:45 EDT Treatment [facility] Page [address] [place] [address] Carlota Jin MD 1 [facility], [facility] 2 [place] [phone] 02/07/2025 6:45 EDT Treatment [facility] [address] [place], [place] [phone] Carlota Jin MD 1 [facility], [facility] 2 [place] [phone] 02/09/2025 6:45 EDT Treatment [facility] - Page [address] [place], [place] [phone] Carlota Jin MD 1 [facility], [facility] 2 [place] [phone] 02/12/2025 6:45 EDT Treatment [facility] - Page [address] [place], [place] [phone] Carlota Jin MD 1 [facility], [facility] 2 [place] [phone] 02/14/2025 6:45 EDT Treatment [facility] - Page [address] [place], [place] [phone] Carlota Jin MD 1 [facility], [facility] 2 [place] [phone] 02/16/2025 6:45 EDT Treatment [facility] - [place] [address] [place], [place] [phone] Carlota Jin MD 1 [facility], [facility] 2 [place] [phone] 02/19/2025 6:45 EDT Treatment [facility] - Page [address] [place], [place] [phone] Carlota Jin MD 1 [facility], [facility] 2 [place] [phone] 02/21/2025 6:45 EDT Treatment [facility] - Page [address] [place], [place] [phone] Carlota Jin MD 1 [facility], [address] [place] [address] documented as of this encounter Procedures Procedure Name Priority Date/Time Associated Diagnosis Comments COMPLETE BLOOD COUNT Routine 11/18/2022 7:16 EST ESRD (end stage renal disease) ([facility]) HEMODIALYSIS Routine 11/18/2022 6:54 EST ESRD (end stage renal disease) ([facility]) documented in this encounter Results * (ABNORMAL) COMPLETE BLOOD COUNT (11/18/2022 7:16 EST) WBC 6.57 4.00 - 10.40 K/cmm 11/18/2022 23:35 [facility] RBC 3.38(L) 4.36 - 5.78 M/cmm 11/18/2022 23:35 [facility] Hemoglobin 10.8(L) 13.8 - 17.3 gm/dL 11/18/2022 23:35 [facility] HCT 33.6(L) 39.5 - 50.2 % 11/18/2022 23:35 [facility] MCV 99(H) 81 - 95 fl 11/18/2022 23:35 [facility] MCH 32.0 27.6 - 33.0 pg 11/18/2022 23:35 [facility] MCHC 32.1(L) 32.8 - 36.4 gm/dL 11/18/2022 23:35 [facility] RDW-CV 13.3 <14.2 % 11/18/2022 23:35 [facility] RDW-SD 48.0(H) <46.0 fl 11/18/2022 23:35 [facility] PLT 233 141 - 377 K/cmm 11/18/2022 23:35 [facility] MPV 11.5 9.5 - 12.7 fl 11/18/2022 23:35 [facility] Blood VENOUS BLOOD / Unknown Venipuncture / Unknown 11/18/2022 7:16 EST 11/18/2022 7:16 EST us Carlota Jin MD HEMATOLOGY & PF4 ORDERABL ES Final Result [facility] [address] [place] [address] documented in this encounter Visit Diagnoses Diagnosis ESRD (end stage renal disease) ([facility])- Primary End stage renal disease documented in this encounter Administered Medications Inactive Administered Medications - up to 3 most recent administrations Medication Order MAR Action Action Date Dose Rate Site heparin injection 9,000 Units 9,000 Units, intravenous, ONCE IN DIALYSIS, 1 dose, On Wed11/18/22 at 0715, Routine, Dialysis, Now x1 bolus 4500 units to be given at the beginning of dialysis 1500 units/hour to be given over the course of dialysis (9000 units total). Stop 1 hour prior to end of treatment. To be administered per Policy [id number].Indications:ESRD (end stage renal disease) ([facility]) Given 11/18/2022 7:03 EST 9,000 Units documented in this encounter Orders Medications Ordered That Davide ht Not Have Been Administered Count Last Ordered Date First Ordered Date heparin injection 9,000 Units 1 11/18/2022 Dialysis Count Last Ordered Date First Orde red Date HEMODIALYSIS 1 11/18/2022 documented in this encounter Care Teams V Belt Skiver Relationship Specialty Start Date End Date Adeola Villegas APRN [address] [place] [address] PCP - General 10/12/16 07/06/23 documented as of this encounter
--- OUTSIDE RECORDS SUMMARY | 2024-12-05 12:32 | XMS_ITS | Encounter Summary ---
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 Ken Greer, being referred for two lesions that are very likely the same, one small one on posterior neck and another slightly larger, about the size of a nickel on posterior left shoulder blade area with crust. On. Eliquis. Referring for managment of these lesions. Ismael Albarran PA [address] [place] [address] [facility] [address] [place] [address] Referral ID Status Reason Start Date Expiration Date V isits Requested Visits Authorized [id number] Closed Consult, Test & Treat PCP Updated and/or Approved 09/05/2024 03/05/2025 1 1 Encounter Details Date Type Department Care Team ([facility] st Contact Info) Description 10/11/2024 Transcribe Orders eDH Incoming Referrals [phone] Ismael Albarran PA [address] [place] [address] Disorder of pigmentation Social History Tobacco Use Types Packs/Day Years Used Date Smoking Tobacco: Every Day Cigarettes Last attempted to quit: 12/26/2018 Smokeless Tobacco: Never Comments:smoking a few a day Alcohol Use Standard Drinks/Week Comments No 0 (1 standard drink = 0.6 oz pur e alcohol) [facility] Utilities Answer Date Recorded In [...] place to sleep or slept in a correction (including now)? No 02/20/2024 Housing Stability Vital [...] living in a correction (including now)? No 04/21/2024 DH IPV Inpatient [...] of this encounter Plan of Treatment Scheduled Referrals Name Type Priority Associated Diagnoses Orde r Schedule Referral to Dermatology Outpatient Referral Routine Disorder of pigmentation Ordered: 10/11/2024 documented as of this encounter Visit Diagnoses Diagnosis Disorder of pigmentation Dyschromia, unspecified documented in this encounter Care Teams Color Expert Relationship Specialty Start Date End Date Ismael Albarran [place] [address] PCP - General Internal Medicine 05/16/24 documented as of this encounter
--- OUTSIDE RECORDS SUMMARY | 2024-12-05 12:33 | XMS_ITS | Encounter Summary ---
Author Organization [facility] Address [facility] [place] [address] Care Team Providers Care Pressing Machine Tender Name Role Phone Ismael Albarran Primary Care Provider + Encounter Details Date Type Department Care Team (Late st Contact Info) Description 05/16/2024 3:30 PM EDT Office [place] [phone] Jigna Freire APRN [facility] [place] [address] S/P bilateral BKA (below knee amputation); Visit for wound check Social History Tobacco Use Types Packs/Day Years Used Date Smoking Tobacco: Every Day Cigarettes Last attempted to quit: 12/26/2018 Smokeless Tobacco: Never Comments:smoking a few a day Alcohol Use Standard Drinks/Week Comments No 0 (1 standard drink = 0.6 oz pur e alcohol) [facility] Utilities Answer Date Recorded In the past 12 months has [employer], gas, oil, or water [employer] threatened to shut off services in your [...] place to sleep or slept in a nursing home (including now)? No 02/20/2024 Housing Stability [...] in a nursing home (including now)? No 04/21/2024 DH IPV [...] Sign Reading Time Taken Comments Blood Pressure 159/67 05/16/2024 3:27 PM EDT Pulse 66 05/16/2024 3:27 PM EDT Temperature - - Respiratory Rate - - Oxygen Saturation - - Inhaled Oxygen Concentration - - Weight 86.2 kg (190 lb) 05/16/2024 3:27 PM EDT Height 175.3 cm (5' 9) 05/16/2024 3:27 PM EDT Body Mass Index 28.06 05/16/2024 3:27 PM EDT documented in this encounter Progress Notes * Jigna Freire APRN - 05/16/2024 3:30 PM EDT Images from the original note were not included. VASCULAR SURGERY POSTOP FOLLOW-UP SERVICE DATE: 05/16/2024 SERVICE TIME: 3:29 PM PRIMARY CARE PHYSICIAN: SPENCER Elmore REFERRING PROVIDER: No referring provider defined for this encounter. Operation: History of Present Illness: Gerson Bruner is a 58 y.o. male presenting for wound check. He is s/p R BKA. He denies s/sx of infection. He reports a well healed L BKA. He denies CP, SOB, pain. He reports some restless leg syndrome but no pain. He continues on Eliquis (afib), aspirin, and statin. Vascular Surgeries: 02/21/2024: Left Below knee amputation ([place]) 04/21/2024: RIGHT guillotine through-ankle amputation 04/25/2024: RIGHT BKA formalization Physical Exam: BP 159/67 (BP Location (NBP): Right arm, Patient Position: Sitting) Pulse 66 Ht 175.3 cm (5' 9) Wt 86.2 kg (190 lb) BMI 28.06 kg/m?? CONSTITUTIONAL: alert, well developed, well nourished, in no acute distress NEUROLOGIC/PSYCHIATRIC: Grossly normal HEENT: normal atraumatic LUNGS: breathing comfortably on RA HEART: regular rate and rhythm ABDOMEN: soft, non-tender; bowel sounds normal; no masses, no organomegaly INTEGUMENTARY: See below SURGICAL SITES: L BKA well healed R BKA with sutures and remi intact. No s/sx of infection. Studies: None today. Impression: 58 y.o. male status post R BKA. His R BKA is healing well. Sutures and remi present at today's visit, some sutures embedded into skin. All remi and sutures removed without complication. Lateral and medial ends of incision with well-approximated edges and well-healed incision. Incision painted with betadine, 3 steristrips applied to central 1.5 cm area of incision where the distal edge of the incision overlapped the proximal edge. No signs/symptoms of infection. Gentle compression applied with Dermafit. Plan: - Return to clinic in 3 weeks for wound check. - Okay to shower with dressings removed. Soap and running water okay, no soaking or submerging, patto dry. - [place] incision with betadine until suture/staple sites fully healed. Apply steristrips as shown in clinic. - Call the clinic at any time with questions or concerns. Monitor for signs and symptoms of infection: fever, chills, pain, warmth, redness, swelling, or exudate. SIGNATURE: Jigna Freire APRN PATIENT NAME: Gerson Bruner DATE: May 16, 2024 TIME: 3:29 PM documented in this encounter Plan of Treatment Not on file documented as of this encounter Visit Diagnoses Diagnosis S/P bilateral BKA (below knee amputation) Lower limb amputation, below knee Visit for wound check Encounter for other specified aftercare documented in this encounter Care Teams Pressing Machine Tender Relationship Specialty Start Date End Date Ismael [place]barran [place] [address] [place] [address] PCP - General Internal Medicine 05/16/24 documented as of this encounter
--- OUTSIDE RECORDS SUMMARY | 2024-12-05 12:33 | XMS_ITS | Encounter Summary ---
Author Organization [facility] Address [facility] [place] [address] Care Team Providers Care Security Assessor Name Role Phone Ismael Albarran Primary Care Provider + Encounter Details Date Type Department Care Team (Late st Contact Info) Description 05/30/2024 Telephone Cardiology at [address] [phone] Florecita Klein APRN [facility] [place] [address] Social History Tobacco Use Types Packs/Day Years Used Date Smoking Tobacco: Every Day Cigarettes Last attempted to quit: 12/26/2018 Smokeless Tobacco: Never Comments:smoking a few a day Alcohol Use Standard Drinks/Week Comments No 0 (1 standard drink = 0.6 oz pur e alcohol) [facility] Utilities Answer Date Recorded In the past 12 months has [employer], gas, oil, or water [employer] threatened to shut off services in your [...] any time in the past 12 m [facility], were you homeless or living in [...] encounter Miscellaneous Notes * Telephone Encounter - Florecita Klein APRN - 05/30/2024 8:49 AM EDT Images from the original note were not included. 05/30/2024 Gerson Bruner Initial Contact Date: 05/30/2024 Initial contact time: 8:51 AM Referring Provider: Landon Maradiaga D.O. Patient Location: [facility] ED Past Medical History: ESRD - on dialysis Bilateral BKA T2DM HTN HLD Atrial flutter - on Eliquis PVD TIA Smoker Presenting Symptoms per OSH: Arrived to [facility] ED 8/ s/p dialysis (without complications) for elevated HR with narrow complex found to be in atrial flutter with HR 140s. Asymptomatic. Given diltiazem IV bolus with response and subsequently started on diltiazem gtt. Currently, NSR, HR 88. Non-home 02 dependent and hypoxic while sleeping requiring 2L NC. Spo2 95% on supplemental O2. OSH concern for 5 beat run of NSVT overnight. Again, asymptomatic. Electrolytes WNL including K 4.5and magnesium 2.0. Glucose 30 this AM. Tolerating PO. Normalized with amp D50. Vital signs: 175/110, HR 88, sp02 95% on 2L NC Requesting transfer for telemetry monitoring given 5 beat run NSVT, episode of hypoglycemia, and new oxygen requirements Pertinent Diagnostic Findings: Glucose 30 - normalized with D50. Tolerating PO K = 4.5 Magnesium 2.0 Past cardiac studies: EKG 05/29/24 Atrial flutter, HR 148, no ischemia noted EKG 05/29/24 NSR, HR 75, no ischemia noted Telemetry strip 5 beat run NSVT TTE 04/23/24 Interpretation Summary Left ventricular systolic function is normal. The left ventricular ejection fraction is 61% by Patel's biplane. There are no segmental wall motion abnormalities. Left ventricular filling pressure is increased. Right ventricular systolic function is normal. No significant valvular disease. Compared with study of 03/07/19, no change. OSH Interventions: Diltiazem gtt Amp D50 Plan: Patient is currently in NSR, HR 80. On diltiazem gtt. Although telemetry strip showed 5 beat run ofNSVT, patient is asymptomatic. Electrolytes including magnesium and potassium are WNL. No obvious underlying cause of NSVT. There is no need for cardiology intervention at this time. Given his hypoglycemia and hypoxia, concern for infectious process over need for cardiology service. Recommending possible transfer to hospital medicine for ongoing assessment and dialysis need. Above recommendations were based on my discussion with Dr. Maradiaga; I have not personally interviewed or examined this patient. Advised to call the transfer center back with any changes in the patient condition. I have not personally reviewed EKGs. Florecita Klein APRN Pager #: [phone] 05/30/2024 documented in this encounter Plan of Treatment Not on file documented as of this encounter Visit Diagnoses Not on filedocumented in this encounter Care Teams Security Assessor Relationship Specialty Start Date End Date Ismael Albarran PA Mohit [facility] [place] [address] PCP - General Internal Medicine 05/16/24 documented as of this encounter
--- OUTSIDE RECORDS SUMMARY | 2024-12-05 12:33 | XMS_ITS | Encounter Summary ---
Author Organization [facility] Address [facility] [place] [address] Care Team Providers Care Phys Assistant Name Role Phone Ismael Albarran Primary Care Provider + Reason for Visit * Reason Comments Medication Refill Encounter Details Date Type Department Care Team (Late st Contact Info) Description 06/21/2024 Refill [place] [address] Patrick Jensen MD [facility] [place] [address] Social History Tobacco Use Types Packs/Day Years Used Date Smoking Tobacco: Every Day Cigarettes Last attempted to quit: 12/26/2018 Smokeless Tobacco: Never Comments:smoking a few a day Alcohol Use Standard Drinks/Week Comments No 0 (1 standard drink = 0.6 oz pur e alcohol) [facility] Utilities Answer Date Recorded In the past 12 months has e [employer], gas, oil, or water [employer] threatened to shut off services in your [...] place to sleep or slept in a assisted (including now)? No 02/20/2024 Housing Stability Vital Sign Answer Lon e Recorded In the last 12 months, was t here a time when you were not able to pay the mortgage or rent on time? No 04/21/2024 In the past 12 months, how m any times have you moved where you were living? 1 04/21/2024 At any time in the past 12 m [facility], were you homeless or living in a assisted (including now)? No 04/21/2024 IPV Inpatient Questions [...] encounter Miscellaneous Notes * Telephone Encounter - Huma Buchanan [facility] - 06/21/2024 2:40 PM EDT Prescription Renewal Request Name: Gerson Bruner : 1965 Prescription(s) Requested: Requested Prescriptions Refused Prescriptions Disp Refills dilTIAZem CD (Cardizem CD) 120 mg CD (ER) 24 hr casule [Pharmacy Med Name: DILTIAZEM 24H ER(CD) 120MG CP] 30 capsule 0 Sig: TAKE ONE CAPSULE BY MOUTH EVERY DAY Patient not managed by [facility] provider so request not handled by Centralized Refill team. Status of request: Refused Allergies Allergen Reactions Clindamycin Swelling. Gabapentin swelling Zoloft [Sertraline] Other reaction(s): Unsure Huma Buchanan CMA 06/21/24 2:40 PM documented in this encounter Plan of Treatment Not on file documented as of this encounter Visit Diagnoses Not on filedocumented in this encounter Care Teams Phys Assistant Relationship Specialty Start Date End Date Ismael Albarran [place] [address] [place] [address] PCP - General Internal Medicine 05/16/24 documented as of this encounter
--- OUTSIDE RECORDS SUMMARY | 2024-12-05 12:33 | XMS_ITS | Encounter Summary ---
Author Organization [facility] Address [facility] [place] [address] Care Team Providers Care Medical Coder Name Role Phone Ismael Albarran Primary Care Provider + Reason for Visit * Reason Comments Medication Refill Encounter Details Date Type Department Care Team (Late st Contact Info) Description 07/20/2024 Refill [place] [address] Ruby Mcgill APRN [facility] [place] [address] Social History Tobacco Use Types Packs/Day Years Used Date Smoking Tobacco: Every Day Cigarettes Last attempted to quit: 12/26/2018 Smokeless Tobacco: Never Comments:smoking a few a day Alcohol Use Standard Drinks/Week Comments No 0 (1 standard drink = 0.6 oz pur e alcohol) [facility] Utilities Answer Date Recorded In the past 12 months has e [employer], gas, oil, or water [employer] threatened to shut off services in your [...] place to sleep or slept in a jail (including now)? No 02/20/2024 Housing Stability Vital Sign Answer Lon e Recorded In the last 12 months, was t here a time when you were not able to pay the mortgage or rent on time? No 04/21/2024 In the past 12 months, how m any times have you moved where you were living? 1 04/21/2024 At any time in the past 12 m [place], were you homeless or living in a jail (including now)? No 04/21/2024 IPV Inpatient Questions [...] on filedocumented in this encounter Care Teams Medical Coder Relationship Specialty Start Date End Date Ismael [place] [address] [place] [address] PCP - General Internal Medicine 05/16/24 documented as of this encounter
--- OUTSIDE RECORDS SUMMARY | 2024-12-05 12:33 | XMS_ITS | Encounter Summary ---
Author Organization [facility] Address [facility] [place] [address] Care Team Providers Care Medical Program Specialist Name Role Phone Ismael Albarran Primary Care Provider + Encounter Details Date Type Department Care Team (Late st Contact Info) Description 05/30/2024 External Results Transfer Center [facility] [place] [address] Social History Tobacco Use Types Packs/Day Years Used Date Smoking Tobacco: Every Day Cigarettes Last attempted to quit: 12/26/2018 Smokeless Tobacco: Never Comments:smoking a few a day Alcohol Use Standard Drinks/Week Comments No 0 (1 standard drink = 0.6 oz pur e alcohol) [facility] Utilities Answer Date Recorded In the past 12 months has th e [employer], gas, oil, or water [employer] threatened to shut off services in your [...] place to sleep or slept in a longterm (including now)? No 02/20/2024 Housing Stability Vital Sign Answer Lon e Recorded In the last 12 months, was t here a time when you were not able to pay the mortgage or rent on time? No 04/21/2024 In the past 12 months, how m any times have you moved where you were living? 1 04/21/2024 At any time in the past 12 m [facility], were you homeless or living in a longterm (including now)? No 04/21/2024 DH IPV Inpatient [...] on file documented as of this encounter Procedures Procedure Name Priority Date/Time Associated Diagnosis Comments MISC EXTERNAL CARDIOLOGY RESULT Routine 05/30/2024 7:16 AM EDT MISC EXTERNAL CARDIOLOGY RESULT Routine 05/30/2024 7:13 AM EDT documented in this encounter Results * External Cardiology Result (05/30/2024 7:16 AM EDT) Anatomical Region Laterality Modality Other Historical Provider EXTERNAL CARDIOLO GY RESULT * External Cardiology Result (05/30/2024 7:13 AM EDT) Anatomical Region Laterality Modality Other Historical Provider EXTERNAL CARDIOLO GY RESULT documented in this encounter Visit Diagnoses Not on filedocumented in this encounter Care Teams Medical Program Specialist Relationship Specialty Start Date End Date Isma[place] [address] PCP - General Internal Medicine 05/16/24 documented as of this encounter
--- OUTSIDE RECORDS SUMMARY | 2024-12-05 12:33 | XMS_ITS | Encounter Summary ---
Author Organization [facility] Address [facility] [place] [address] Care Team Providers Care Civil Division Commander Deputy Sheriff Name Role Phone Ken Greer MD Primary Care Provider [phone] Encounter Details Date Type Department Care Team (Late st Contact Info) Description 05/01/2024 Telephone [place] [phone] Daya Rand RN Social History Tobacco Use Types Packs/Day Years Used Date Smoking Tobacco: Every Day Cigarettes Last attempted to quit: 12/26/2018 Smokeless Tobacco: Never Comments:smoking a few a day Alcohol Use Standard Drinks/Week Comments No 0 (1 standard drink = 0.6 oz pur e alcohol) [facility] Utilities Answer Date Recorded [...] place to sleep or slept in a senior living (including now)? No 02/20/2024 Housing Stability Vital [...] time in the past 12 m [facility], were you homeless or living in a senior living (including now)? No 04/21/2024 DH IPV Inpatient [...] encounter Miscellaneous Notes * Telephone Encounter - Daya Rand RN - 05/01/2024 10:12 AM EDT Patient's called to clarify whether the patient needed to be on 30 days of subcutaneous heparin at home. She states that on doctor had mentioned it, but it was not in the discharge paperwork. Discussed with the discharge team, patient is not supposed to be on Heparin as he is on Eliquis forhis Afib. Relayed this to the patient and his , they both verbalized understanding of this information. Also asked the patient and his how patient is doing with transfers at home, both report that this is going well so far. documented in this encounter Plan of Treatment Not on file documented as of this encounter Visit Diagnoses Not on filedocumented in this encounter Care Teams Civil Division Commander Deputy Sheriff Relationship Specialty Start Date End Date Ken Greer MD PCP - General Family Medicine 12/30/23 05/15/24 documented as of this encounter
--- OUTSIDE RECORDS SUMMARY | 2024-12-05 12:33 | XMS_ITS | Encounter Summary ---
Author Organization [facility] Address [facility] [place] [address] Care Team Providers Care Optical Worker Name Role Phone Ismael Albarran Primary Care Provider + Encounter Details Date Type Department Care Team (Late st Contact Info) Description 05/22/2024 Telephone Vascular Surgery at [facility] [place] [address] Kee [place] Social History Tobacco Use Types Packs/Day Years Used Date Smoking Tobacco: Every Day Cigarettes Last attempted to quit: 12/26/2018 Smokeless Tobacco: Never Comments:smoking a few a day Alcohol Use Standard Drinks/Week Comments No 0 (1 standard drink = 0.6 oz pur e alcohol) [facility] Utilities Answer Date Recorded In the [...] place to sleep or slept in a [place] (including now)? No 02/20/2024 Housing Stability Vital [...] [place] ([place])? No 04/21/2024 DH IPV Inpatient [...] encounter Miscellaneous Notes * Telephone Encounter - Kee Dallas - 05/22/2024 3:35 PM EDT LVM to schedule 3 week wound check (LISA) documented in this encounter Plan of Treatment Not on file documented as of this encounter Visit Diagnoses Not on filedocumented in this encounter Care Teams Optical Worker Relationship Specialty Start Date End Date Isma[place] [address] PCP - General Internal Medicine 05/16/24 documented as of this encounter
--- OUTSIDE RECORDS SUMMARY | 2024-12-05 12:33 | XMS_ITS | Encounter Summary ---
[place] [address] Care Team Providers Care Chopped Strand Operator Name Role Phone Ismael Albarran Primary Care Provider + Reason for Referral * Diagnostic Test (Routine) - Closed Specialty Diagnoses / Procedures Referred By Nader t Referred To Contact Radiology Diagnoses End stage renal disease Procedures IR Dialysis Access - AV Fistula Evaluations Carlota Jin MD [address] [place] [phone] [facility] [place] [address] Referral ID Status Reason Start Date Expiration Date V isits Requested Visits Authorized [id number] Closed Specialty Service Requested 07/12/2024 01/09/2026 1 1 Reason for Visit * Diagnostic Test (Routine) - Closed Specialty Diagnoses / Procedures Referred By Contac t Referred To Contact Radiology Diagnoses End stage renal disease Procedures IR Dialysis Access - AV Fistula Evaluations Carlota Jin MD [address] [place] [phone] [facility] [place] [address] Referral ID Status Reason Start Date Expiration Date V isits Requested Visits Authorized [id number] Closed Specialty Service Requested 07/12/2024 01/09/2026 1 1 Encounter Details Date Type Department Care Team (Latest Contact Info) Description 08/03/2024 8:53 AM EDT - 08/03/2024 11:59 PM EDT Hospital Encounter [place] [address] Carlota Jin MD [facility], [address] [place] [address] End stage renal disease Discharge Disposition: Home Social History Tobacco Use Types Packs/Day Years Used Date Smoking Tobacco: Every Day Cigarettes Last attempted to quit: 12/26/2018 Smokeless Tobacco: Never Comments:smoking a few a day Alcohol Use Standard Drinks/Week Comments No 0 (1 standard drink = 0.6 oz pur e alcohol) [facility] Utilities Answer Date Recorded [...] place to sleep or slept in a skilled nursing (including now)? No 02/20/2024 Housing Stability Vital [...] in a skilled nursing (including now)? No 04/21/2024 DH IPV Inpatient [...] Index - - documented in this encounter Discharge Instructions * Discharge Instructions* Emery Cameron RN - 08/03/2024 10:02 AM EDT [facility] Vascular and Interventional Radiology Discharge Instructions after your Fistulagram Bandage: The dressing(s) over the puncture site(s) in your fistula is/are covered with a dressing of folded gauze and bandaid(s). These should be left in place until the possibility of bleeding has passed (usually about six hours). When you do remove the dressing, do so slowly. If Bleeding Occurs: apply firm (but not excessive) direct pressure just enough to stop the bleeding, for 10-15 minutes. If the bleeding continues, have someone drive you to the nearest Emergency Department or call 911. Notify your Dialysis Center: If you notice a change in the pulse or thrill in your fistula. If you notice a change in your skin color at or around the fistula. If you notice a change in the circulation below the fistula (i.e., fingers or toes) such as cool and/or pale skin. If you see any redness or swelling. If you develop a fever greater than or equal to 101 degrees Fahrenheit. If you develop shaking chills. If you develop pain around the fistula site. If you have questions about your fistula or dialysis. When to call the Interventional Radiology Department: Please call with any questions or concerns. If it is during regular office hours, please call [phone]. If it is after regular office hours, or on weekends or holidays, please call [phone] and ask to speak to the Corrective Therapist marketing content manager for Interventional Radiology. You have received medication during your procedure to help lesson anxiety and keep you comfortable.These medications affect judgement and reaction time. We recommend that you do not drive, operate equipment, sign any important documents, or smoke unattended for 24 hours following your procedure. Because of the sedation, be careful on stairs, as you may be unsteady on your feet. You may resume your regular diet as tolerated. IV site -- slight redness, or tenderness is normal, you can use a warm compress. If tenderness and redness increases or foul drainage occurs, please contact your M. D. documented in this encounter Medications at Time of Discharge Medication Sig Dispensed Refills Start Date End Date insulin detemir U-100 (Levemir U-100 Insulin) 100 unit/mL Solution Inject subcutaneously. 12/19/2022 apixaban (Eliquis) 5 mg tablet Take 1 tablet by mouth 2 times daily. 04/29/2024 HYDROmorphone (Dilaudid) 4 mg tablet Take 1 tablet by mouth every 4 hours as needed for Pain (for moderate pain 3-6 take one tablet, severe pain 7-10 take two tabs). 40 tablet 04/29/2024 tiZANidine (Zanaflex) 4 mg tablet Take 1 tablet by mouth every 8 hours as needed. 30 tablet 04/29/2024 senna-docusate (Pericolace) 8.6-50 mg Tablet Take 1 tablet by mouth daily. 60 tablet 11 04/29/2024 polyethylene glycoL (Miralax) 17 gram/dose Powder Take 17 g by mouth 2 times daily. 255 g 1 04/29/2024 lisinopriL (Zestril) 10 mg tablet Take 1 tablet by mouth daily. 90 tablet 3 04/29/2024 insulin glargine-yfgn (Semglee) 100 unit/mL Solution Inject 23 Units subcutaneously daily. 04/29/2024 acetaminophen (Tylenol) 325 mg tablet Take 3 tablets by mouth every 6 hours. 30 tablet 1 03/14/2024 amLODIPine (Norvasc) 10 mg tabletIndications:CKD (chronic kidney disease) stage 4, GFR 15-29 ml/min Take 1 tablet by mouth daily. 90 tablet 3 03/14/2024 aspirin 81 mg chewable tablet Take 81 mg by mouth daily. 30 tablet 3 03/14/2024 atorvastatin (Lipitor) 40 mg tablet Take 1 tablet by mouth every evening. 90 tablet 3 03/14/2024 carvediloL (Coreg) 12.5 mg tabletIndications:ESR D (end stage renal disease) Take 1 tablet by mouth 2 times daily (with meals). 60 tablet 11 03/14/2024 cholecalciferoL (Vitamin D3) 1,000 unit tablet Take 1 tablet by mouth daily. 90 tablet 3 03/14/2024 dilTIAZem CD (Cardizem CD) 120 mg CD (ER) 24 hr casule Take 1 capsule by mouth daily. 30 capsule 03/14/2024 insulin lispro (HumaLOG) 100 unit/mL Solution Inject 0-8 Units subcutaneously 3 times daily (with meals). 1 mL 12 03/14/2024 pantoprazole EC (Protonix) [address] tablet Take 1 tablet by mouth daily. 90 tablet 3 03/14/2024 pregabalin (Lyrica) 100 mg capsuleIndications:CK D (chronic kidney disease) stage 3, GFR 30-59 ml/min,Other specified diabetes mellitus with unspecified complications,Essenti al hypertension with goal blood pressure less than 130/80,Hyperkalemia Take 1 capsule by mouth 2 times daily. 60 capsule 03/14/2024 sevelamer (Renagel) 800 mg tabletIndications:ESR D (end stage renal disease) 2 tablets, 3 times a day with each meal 180 tablet 5 03/14/2024 documented as of this encounter Progress Notes * Emery Cameron RN - 08/03/2024 11:39 AM EDT [facility] DATABASE Name: Gerson Bruner Date of : 1965 AGE: 58 y.o. Address: [address] [place] [id number] (home) Mobile: Telephone Information: Referring Provider: Carlota Jin REASON FOR VISIT: Order Questions Answers Where will study be performed? [facility] Radiology [120] To be scheduled Next available after expected date Laterality Left Is the patient on anticoagulant / antiplatelet therapy ? No Reason for exam and clinical history: end stage renal disease Planned procedure: Left upper extremity fistulagram Labs to be performed day of procedure: No labs Sedation: Moderate (Conscious sedation) Prophylactic antibiotic : None Contrast: Omnipaque Additional medications for procedure: Lidocaine Planned access site: LUE Position: Supine Consent: Pending Medications to discontinue (and days held): None Case Urgency:: G1-Elective Outpatient intervention within 4-7 days Allergies Allergen Reactions Clindamycin Swelling. Gabapentin swelling Zoloft [Sertraline] Other reaction(s): Unsure Pertinent PMH: Patient Active Problem List Diagnosis Code Type II or unspecified type diabetes mellitus with neurological manifestations, uncontrolled(250.62) E11.49 Leg cramps R25.2 Cigarette smoker F17.210 Unspecified hearing loss H91.90 Herniation of lumbar intervertebral disc with radiculopathy M51.16 Anemia of chronic renal failure, stage 4 (severe) N18.4, D63.1 Essential hypertension with goal blood pressure less than 130/80 I10 Diabetes mellitus E11.9 Hyperlipidemia E78.5 Proteinuria R80.9 Essential hypertension I10 Pre-transplant evaluation for CKD (chronic kidney disease) Z01.818 Hyperglycemia R73.9 Secondary hyperparathyroidism N25.81 CKD (chronic kidney disease) stage 5, GFR less than 15 ml/min N18.5 Right sided numbness R20.0 TIA (transient ischemic attack) G45.9 Non-healing open wound of heel S91.309A Postoperative anemia due to acute blood loss D62 Surgical wound present T14.8XXA Status post below knee amputation, left Z89.512 Diabetic foot ulcer E11.621, L97.509 Blister of second toe of right foot S90.424A Acute hypoxic respiratory failure J96.01 Hypertensive urgency I16.0 Critical ischemia of lower extremity I70.229 Non healing left heel wound S91.302A Sepsis with encephalopathy without septic shock A41.9, R65.20, G93.41 Date/Procedure Meds Given/Comments 04/11/2024 RLE Angiogram w/angioplasty Versed 2 mg IV; Fentanyl 200 mcg IV; Hydralazine 20 mg IV; Heparin 10,000 units IV; Labetalol 20 mg IV; Protamine 40 mg IV. Persistent HTN SBP 170's-180's Nicardipine gtt started. 08/03/2024 Fistulagram Fentanyl IV 125 mcg, Versed IV 2.5 mg 1040 to procedure room IR2 via stretcher. Onto table supine. All monitors, O2, safety strap in place. Meds per protocol. Intra Procedure BS=74 Fistulagrams Post Procedure Site: Left Arm Time sheath removed: 1127 Tip stop time applied: 1127 Tip stop removal: Laboratory Results: Lab Results Component Value Date INR 1.0 03/13/2024 Lab Results Component Value Date CREATININE 5.72 (H) 05/16/2024 Lab Results Component Value Date K 5.3 (H) 04/29/2024 Lab Results Component Value Date PLATELET 438 (H) 04/29/2024 documented in this encounter H&P Notes * Porfirio Call MD - 08/03/2024 9:53 AM EDT Interventional Radiology Interval H&P: Procedure: LUE fistulagram and possible intervention The patient's history and physical exam have been reviewed and completed. There has been no interval change from that of the pre-operative history and physical exam done within the last 30 days. Physical Exam: Cardiovascular: Regular, Normal Pulmonary: Breath sounds clear to auscultation Abdomen: Soft, NTTP Vascular: LUE fistula, bruit present The planned procedure (and sedation plan if appropriate), its benefits and risks, and alternatives were discussed with the patient. The patient consented to the procedure. The indications for the procedure are still present. Pre-sedation Assessment: Sedation Plan: moderate (conscious sedation) ASA: 3: Patient with severe systemic disease Mallampati: II: tonsillar pillars are blocked by the tongue Confirm NPO status: Yes History of anesthetic complications: No Current medications reviewed: Yes Allergies reviewed: Yes Source Note - Gerson Scott PA - 07/13/2024 8:53 AM EDT Interventional Radiology Focused Pre-procedure H&P: PCP: SPENCER Elmore Procedure indication: ESRD, post-treatment bleeding IR workflow: Procedure request received through Interventional Radiology eDH order queue. There are no answered order specific questions. History of present illness: Per chart review, Gerson Bruner is a 58 y.o. male who presents to Interventional Radiology to undergo left upper extremity fistulagram. Patient underwent creation of a left upper proximal access not at in January 2019. Now reportedly experiencing post-treatment bleeding. No prior interventions. Remainder of patient's medical and surgical history, allergies, medications, and social/family history obtained below as previously outlined in patient's medical record. Assessment: 58 y.o. male with malfunctioning dialysis access presenting to Interventional Radiologyfor fistulagram. Plan Planned procedure: Left upper extremity fistulagram Labs to be performed day of procedure: No labs Sedation: Moderate (Conscious sedation) Prophylactic antibiotic : None Contrast: Omnipaque Additional medications for procedure: Lidocaine Planned access site: LUE Position: Supine Consent: Pending Medications to discontinue (and days held): None Cytopathology presence needed: No Case Urgency:: G1-Elective Outpatient intervention within 4-7 days Labs: Lab Results Component Value Date HGB 8.8 (L) 04/29/2024 HCT 28.5 (L) 04/29/2024 WBC 8.7 04/29/2024 PLATELET 438 (H) 04/29/2024 INR 1.0 03/13/2024 BUN 33 (H) 04/29/2024 CREATININE 5.72 (H) 05/16/2024 ALBUMIN 3.2 04/20/2024 BILIDIR 0.1 03/13/2024 BILITOT <0.2 (L) 04/20/2024 AST 16 04/20/2024 ALT 16 04/20/2024 ALKPHOS 210 (H) 04/20/2024 Allergies: Clindamycin, Gabapentin, and Zoloft [sertraline] Medications: Current Outpatient Medications on File Prior to Visit Medication Sig Dispense Refill insulin detemir U-100 (Levemir U-100 Insulin) 100 unit/mL Solution Inject subcutaneously. apixaban (Eliquis) 5 mg tablet Take 1 tablet by mouth 2 times daily. HYDROmorphone (Dilaudid) 4 mg tablet Take 1 tablet by mouth every 4 hours as needed for Pain (for moderate pain 3-6 take one tablet, severe pain 7-10 take two tabs). (Patient not taking: Reported on 05/16/2024) 40 tablet 0 tiZANidine (Zanaflex) 4 mg tablet Take 1 tablet by mouth every 8 hours as needed. 30 tablet 0 senna-docusate (Pericolace) 8.6-50 mg Tablet Take 1 tablet by mouth daily. (Patient not taking: Reported on 05/16/2024) 60 tablet 11 polyethylene glycoL (Miralax) 17 gram/dose Powder Take 17 g by mouth 2 times daily. (Patient not taking: Reported on 05/16/2024) 255 g 1 lisinopriL (Zestril) 10 mg tablet Take 1 tablet by mouth daily. 90 tablet 3 insulin glargine-yfgn (Semglee) 100 unit/mL Solution Inject 23 Units subcutaneously daily. (Patientnot taking: Reported on 05/16/2024) acetaminophen (Tylenol) 325 mg tablet Take 3 tablets by mouth every 6 hours. 30 tablet 1 amLODIPine (Norvasc) 10 mg tablet Take 1 tablet by mouth daily. 90 tablet 3 aspirin 81 mg chewable tablet Take 81 mg by mouth daily. 30 tablet 3 atorvastatin (Lipitor) 40 mg tablet Take 1 tablet by mouth every evening. 90 tablet 3 carvediloL (Coreg) 12.5 mg tablet Take 1 tablet by mouth 2 times daily (with meals). 60 tablet 11 cholecalciferoL (Vitamin D3) 1,000 unit tablet Take 1 tablet by mouth daily. 90 tablet 3 dilTIAZem CD (Cardizem CD) 120 mg CD (ER) 24 hr casule Take 1 capsule by mouth daily. 30 capsule 0 insulin lispro (HumaLOG) 100 unit/mL Solution Inject 0-8 Units subcutaneously 3 times daily (with meals). 1 mL 12 pantoprazole EC (Protonix) [address] tablet Take 1 tablet by mouth daily. 90 tablet 3 pregabalin (Lyrica) 100 mg capsule Take 1 capsule by mouth 2 times daily. 60 capsule 0 sevelamer (Renagel) 800 mg tablet 2 tablets, 3 times a day with each meal 180 tablet 5 No current facility-administered medications on file prior to visit. Past medical/surgical history: Patient Active Problem List Diagnosis Code Type II or unspecified type diabetes mellitus with neurological manifestations, uncontrolled(250.62) E11.49 Leg cramps R25.2 Cigarette smoker F17.210 Unspecified hearing loss H91.90 Herniation of lumbar intervertebral disc with radiculopathy M51.16 Anemia of chronic renal failure, stage 4 (severe) N18.4, D63.1 Essential hypertension with goal blood pressure less than 130/80 I10 Diabetes mellitus E11.9 Hyperlipidemia E78.5 Proteinuria R80.9 Essential hypertension I10 Pre-transplant evaluation for CKD (chronic kidney disease) Z01.818 Hyperglycemia R73.9 Secondary hyperparathyroidism N25.81 CKD (chronic kidney disease) stage 5, GFR less than 15 ml/min N18.5 Right sided numbness R20.0 TIA (transient ischemic attack) G45.9 Non-healing open wound of heel S91.309A Postoperative anemia due to acute blood loss D62 Surgical wound present T14.8XXA Status post below knee amputation, left Z89.512 Diabetic foot ulcer E11.621, L97.509 Blister of second toe of right foot S90.424A Acute hypoxic respiratory failure J96.01 Hypertensive urgency I16.0 Critical ischemia of lower extremity I70.229 Non healing left heel wound S91.302A Sepsis with encephalopathy without septic shock A41.9, R65.20, G93.41 Past Medical History: Diagnosis Date Anemia Chronic kidney disease CKD (chronic kidney disease) stage 4, GFR 15-29 ml/min Diabetes mellitus Herniation of lumbar intervertebral disc with radiculopathy 08/16/2015 L4-5 left Hypertension Past Surgical History: Procedure Laterality Date PRO AMPUTATION ANKLE-TIB/FIB MALLEOLI Right 04/21/2024 @AMPUTATION, ANKLE (WRVU 10.37) performed by Janet Carrington MD at [facility] MAIN OR PRO AMPUTATION LOW LEG THRU TIB/FIB Left 02/21/2024 @AMPUTATION, BELOW-KNEE (WRVU 15.37) performed by Kristi Renae MD at [facility] MAIN OR PRO AMPUTATION LOW LEG, CIRCULAR Left 02/18/2024 @AMPUTATION, BELOW-KNEE, OPEN, GUILLOTINE (WRVU 9.79) performed by Kristi Renae MD at [facility] MAIN OR PRO AMPUTATION LOW LEG, SECOND CLOSURE Right 04/25/2024 AMPUTATION, BELOW-KNEE, SECONDARY CLOSURE OR SCAR REVISION (WRVU 8.76) performed by Belinda Carrington MD at [facility] MAIN OR PRO ANASTOMOSIS, AV, ANY SITE Left 09/05/2018 AV FISTULA CREATION, DIRECT HEMODIALYSIS, ANY SITE, EG GABRIEL FISTULA UPPER EXTREMITY (WRVU 11.9) performed by Scout Reese MD at [facility] MAIN OR PRO COLONOSCOPY, REMV LESN, SNARE N/A 09/26/2019 COLONOSCOPY, POLYPECTOMY, REMOVAL LESION BY SNARE (WRVU 4.67) performed by aKye Gibbs MD at [facility] ENDOSCOPY PRO DEBRIDEMENT SUBCUTANEOUS TISSUE 20 SQCM/< Right 04/21/2024 DEBRIDEMENT SKIN AND SUBCU, LOWER EXTREMITY (WRVU 1.01) performed by Janet Carrington MD at [facility] MAIN OR VS ARTERIOGRAM LOWER EXTREMITY VASCULAR SURGERY 04/11/2024 VS Arteriogram Lower Extremity Vascular Surgery 04/11/2024 Kristi Renae MD [facility] INTERVENTIONL RAD Social history and habits: Social History Tobacco Use Smoking status: Every Day Current packs/day: 0.00 Types: Cigarettes Last attempt to quit: 12/26/2018 Years since quittin.5 Smokeless tobacco: Never Tobacco comments: smoking a few a day Vaping Use Vaping status: Never Used Substance Use Topics Alcohol use: No Drug use: Yes Types: Marijuana Comment: multiple times daily Significant family history: Family History Problem Relation Age of Onset Diabetes Mother Cancer Father Diabetes Paternal Grandmother Heart Disease Paternal Grandfather Pertinent ROS: as per HPI Physical exam: Pending (to be performed in interventional radiology the day of procedure) ASA: Pending (to be assessed in interventional radiology the day of procedure) Mallampati class: Pending (to be assessed in interventional radiology the day of procedure) 07/13/2024 SPENCER Wynn documented in this encounter Plan of Treatment Not on file documented as of this encounter Procedures Procedure Name Priority Date/Time Associated Diagnosis Comments POC, GLUCOSE Routine 08/03/2024 12:37 PM EDT POC, GLUCOSE Routine 08/03/2024 12:16 PM EDT POC, GLUCOSE Routine 08/03/2024 11:57 AM EDT IR DIALYSIS ACCESS - AV FISTULA EVALUATIONS Routine 08/03/2024 11:39 AM EDT End stage renal disease POC, GLUCOSE Routine 08/03/2024 10:53 AM EDT POC, GLUCOSE Routine 08/03/2024 10:15 AM EDT documented in this encounter Results * POC, GLUCOSE (08/03/2024 12:37 PM EDT) Glucometer, POC 135 65 - 199 mg/dL 08/03/2024 12:[address] [facility] Comment:Supplemental ranges: <140 mg/dL before meals <180 mg/dL all other times of the day. Blood CAPILLARY BLOOD / Unknown 08/03/2024 12:37 PM EDT 08/03/2024 12:37 PM EDT Carlota Jin MD POINT OF CARE FAVIO T ORDERABLES [facility] [place] [address] * POC, GLUCOSE (08/03/2024 12:16 PM EDT) Glucometer, POC 75 65 - 199 mg/dL 08/03/2024 12:[address] [facility] Comment:Supplemental ranges: <140 mg/dL before meals <180 mg/dL all other times of the day. Blood CAPILLARY BLOOD / Unknown 08/03/2024 12:16 PM EDT 08/03/2024 12:16 PM EDT Carlota Jin MD POINT OF CARE [employer] T ORDERABLES Performing Organization Address City/[facility] Co de Phone Number [facility] [place] [address] * (ABNORMAL) POC, GLUCOSE (08/03/2024 11:57 AM EDT) [facility] Signature Glucometer, POC 51(LLL) 65 - 199 mg/dL 08/03/2024 11:[address] [facility] Comment:Supplemental ranges: <140 mg/dL before meals <180 mg/dL all other times of the day. Blood CAPILLARY BLOOD / Unknown 08/03/2024 11:57 AM EDT 08/03/2024 11:57 AM EDT Carlota Jin MD POINT OF CARE [employer] T ORDERABLES Performing Organization Address [facility] Co de Phone Number [facility] [place] [address] * IR Dialysis Access - AV Fistula Evaluations (08/03/2024 11:39 AM EDT) Anatomical Region Laterality Modality Abdomen X-Ray Angiograph y Narrative 08/03/2024 1:28 PM EDT Images from the original result were not included. IR PROCEDURE NOTE Procedure: Left arm fistulagram and venous angioplasty. Indication for Procedure: Per Gerson Scott's note on 07/13/24, Gerson Bruner is a 58 y.o. male who presents to Interventional Radiology to undergo left upper extremity fistulagram. Patient underwent creation of a left upper proximal access not at in January 2019. Now reportedly experiencing post-treatment bleeding. Procedure events and findings: After obtaining informed consent, patient was positioned supine on procedure table. ??Left upper arm was prepped and draped, maximum sterile barrier technique was used throughout. ??Local anesthesia provided with 1% lidocaine. Under ultrasound guidance, a 21-gauge echogenic tip needle was directed into the outflow cephalic vein the level of the distal humerus directed centrally. ??An 018 wire was placed and a 4F sheath. Venography was performed from the access centrally. There was an approximately 2.7cm severe stenosis of the central cephalic vein. The 4F sheath exchanged over guide wire for a 6F sheath. An 0.035 guidewire was advanced centrally past the stenosis. Over wire, a 8mm x 80mm balloon catheter was used to dilate the stenosis. ??Post [employer]ASKETB[employer] venography showed persistent stenosis. A high pressure 8mm x 40mm balloon catheter was then used to dilate the stenosis. ??Post [employer] BASKETBALL COACH venography showed mild residual stenosis. Wire and sheath were removed. Hemostasis was obtained with manual compression and a TipStop. Medications: Fentanyl 125 mcg IV, Versed 2.5 mg IV, 1% Lidocaine <10ccs subcutaneous. ? Contrast: 40 cc. Omni 350. Fluoro: 1.4 minutes Est Blood Loss: 20 cc. Complications: ??No immediate. Impression: Severe ~2.7cm stenosis of central cephalic vein, mild residual after high-pressure 8 mm [employer]. Resident/Fellow: Alexander. Attending: Mayra. ??I, Dr. Nunez was present throughout this procedure. ?? I was present during the intraservice time as documented by the IR Nurse. Carlota Jin MD IMG IR ORDERABLES * POC, GLUCOSE (08/03/2024 10:53 AM EDT) [facility] Signature Glucometer, POC 74 65 - 199 mg/dL 08/03/2024 10:[address] [facility] Comment:Supplemental ranges: <140 mg/dL before meals <180 mg/dL all other times of the day. Blood CAPILLARY BLOOD / Unknown 08/03/2024 10:53 AM EDT 08/03/2024 10:53 AM EDT Carlota Jin MD POINT OF CARE FAVIO T ORDERABLES Performing Organization Address City/[facility]/ZIP Co de Phone Number [facility] [place] [address] * (ABNORMAL) POC, GLUCOSE (08/03/2024 10:15 AM EDT) Glucometer, POC 46(LLL) 65 - 199 mg/dL 08/03/2024 10:[address] [facility] Comment:Supplemental ranges: <140 mg/dL before meals <180 mg/dL all other times of the day. Blood CAPILLARY BLOOD / Unknown 08/03/2024 10:15 AM EDT 08/03/2024 10:16 AM EDT Carlota Jin MD POINT OF CARE FAVIO T ORDERABLES Performing Organization Address [facility] Co de Phone Number [facility] [place] [address] documented in this encounter Visit Diagnoses Diagnosis End stage renal disease documented in this encounter Administered Medications Inactive Administered Medications - up to 3 most recent administrations Medication Order MAR Action Action Date Dose Rate Site fentaNYL (pf) (50 mcg/mL) multi-dose injection 25-50 mcg 25-50 mcg, Intravenous, EVERY 3 MIN PRN, Starting on Viridiana 08/03/24 at 0941, Until Viridiana 08/03/24 at 1414, Pain, per unit protocol, For use in Interventional Radiology (IR) only for procedural sedation with direct provider supervision and verbal order. - Start dose: 50 mcg (reduce dose to 25 mcg if history of sedation sensitivity). - Titration dose: 25-50 mcg IV, (based on patient response) every 3 minutes PRN to maintain procedural pain less than 2 per Pain Scale. Maximum dose: 50 mcg/dose, 250 mcg/hour, Angio/IR (Intra-Procedure), Routine Given 08/03/2024 11:21 AM EDT 25 mcg Given 08/03/2024 11:16 AM EDT 25 mcg Given 08/03/2024 11:01 AM EDT 25 mcg glucose (Glutose) 40% oral geL 15-30 g of glucose, Buccal, EVERY 15 MIN PRN, Starting on Viridiana 08/03/24 at 1027, Until Viridiana 08/03/24 at 1414, Low blood sugar, For BG 50-70 mg/dL: Oral treatment preferred: If able to drink, give 120 mL juice or regular (not diet) soda OR if NPO, give 15 gram glucose 40% oral gel massaged into buccal mucosa OR if unconscious or uncooperative, give 25 gram (250 mL) dextrose 10% IV over 15 minutes per protocol OR, if no IV access, 1 mg glucagon IM. For BG less than 50 mg/dL: Oral treatment preferred: If able to drink, give 240 mL juice or regular (not diet) soda OR if NPO, give 30 gram glucose 40% oral gel massaged in buccal mucosa OR if unconscious or uncooperative, give 25 gram (250 mL) dextrose 10% IV over 15 minutes per protocol OR, if no IV access, 1 mg glucagon IM. Recheck BG in 15 minutes. May repeat juice/soda, gel, dextrose or glucagon once per episode. Notify provider if hypoglycemia does not resolve after two treatments. Providers should consider the following: administering longer-acting treatments for the duration of active insulin or hypoglycemia agent for persistent hypoglycemia and re-evaluating active insulin orders before administering the next dose. 1 tube of Glutose-15 contains 15 grams of glucose (net weight of tube = 37.5 grams.), Angio/IR (Day of Procedure), Routine Given 08/03/2024 12:08 PM EDT 15 g of glucose Given 08/03/2024 10:30 AM EDT 15 g of glucose glucose 40% oral geL (Glutose) 40 % gel 1 dose, Starting on Viridiana 08/03/24 at 1021, Until Viridiana 08/03/24 at 1030, Kristel Martinez: cabinet override 1 tube of Glutose-15 contains 15 grams of glucose (net weight of tube = 37.5 grams.) iohexoL (Omnipaque) (350 mg/mL) solution 1-400 mL 1-400 mL, Intravenous, ONCE, 1 dose, On Viridiana 08/03/24 at 1030, For intra-procedural use by proceduralist., Angio/IR (Intra-Procedure), Routine Given 08/03/2024 10:30 AM EDT 40 mLs lidocaine (Xylocaine) 1% (10 mg/mL) injection 10 mg 10 mg, Subcutaneous, ONCE, 1 dose, On Viridiana 08/03/24 at 1000, For use in Interventional Radiology (IR) only for procedure with direct provider supervision and verbal order., Angio/IR (Intra-Procedure), Routine Given 08/03/2024 11:04 AM EDT 10 mg midazolam (pf) (Versed) (1 mg/mL) multi-dose injection 0.5-1 mg 0.5-1 mg, Intravenous, EVERY 3 MIN PRN, Starting on Viridiana 08/03/24 at 0941, Until Viridiana 08/03/24 at 1414, Sedation, For use in Interventional Radiology (IR) only for procedural sedation with direct provider supervision and verbal order. - Start dose: 1 mg (Reduce dose to 0.5 mg if history of sedation sensitivity). - Titration dose: 0.5 mg - 1 mg (based on patient response) every 3 minutes PRN to obtain RASS score of -3. Maximum dose: 1 mg/dose, 5 mg/hour., Angio/IR (Intra-Procedure), Routine Given 08/03/2024 11:21 AM EDT 0.5 mg Given 08/03/2024 11:16 AM EDT 0.5 mg Given 08/03/2024 11:01 AM EDT 0.5 mg documented in this encounter Care Teams Chopped Strand Operator Relationship Specialty Start Date End Date Ismael Albarran [place] [address] PCP - General Internal Medicine 05/16/24 documented as of this encounter
--- OUTSIDE RECORDS SUMMARY | 2024-12-05 12:33 | XMS_ITS | Encounter Summary ---
Author Organization [facility] Address [facility] [place] [address] Care Team Providers Care Healthcare Economics Consultant Name Role Phone Ismael Albarran Primary Care Provider + Encounter Details Date Type Department Care Team (Late st Contact Info) Description 07/13/2024 Notes [place] [address] Gerson Scott PA [facility] [address] [place] [address] Social History Tobacco Use Types Packs/Day Years Used Date Smoking Tobacco: Every Day Cigarettes Last attempted to quit: 12/26/2018 Smokeless Tobacco: Never Comments:smoking a few a day Alcohol Use Standard Drinks/Week Comments No 0 (1 standard drink = 0.6 oz pur e alcohol) [facility] Utilities Answer Date Recorded In the past 12 months has e [employer], gas, oil, or water [employer] threatened to shut off services in your [...] place to sleep or slept in a alf (including now)? No 02/20/2024 Housing Stability Vital [...] living in a alf (including now)? No 04/21/2024 IPV Inpatient Questions [...] on file documented as of this encounter H&P Notes * Gerson Scott PA - 07/13/2024 8:53 AM [...] 10.37) performed by Janet Carrington MD at [facility] MAIN OR PRO AMPUTATION LOW LEG THRU TIB/FIB Left 02/21/2024 @AMPUTATION, BELOW-KNEE (WRVU 15.37) performed by Kristi Renae MD at [facility] MAIN OR PRO AMPUTATION LOW LEG, CIRCULAR Left 02/18/2024 @AMPUTATION, BELOW-KNEE, OPEN, GUILLOTINE (WRVU 9.79) performed by Kristi Renae MD at [facility] MAIN OR PRO AMPUTATION LOW LEG, SECOND CLOSURE Right 04/25/2024 AMPUTATION, BELOW-KNEE, SECONDARY CLOSURE OR SCAR REVISION (WRVU 8.76) performed by Belinda Carrington MD at [facility] MAIN OR PRO ANASTOMOSIS, AV, ANY SITE Left 09/05/2018 AV FISTULA CREATION, DIRECT HEMODIALYSIS, ANY SITE, EG GABRIEL FISTULA UPPER EXTREMITY (WRVU 11.9) performed by Scout Reese MD at [facility] MAIN OR PRO COLONOSCOPY, REMV LESN, SNARE N/A 09/26/2019 COLONOSCOPY, POLYPECTOMY, REMOVAL LESION BY SNARE (WRVU 4.67) performed by Kaye Gibbs MD at [facility] ENDOSCOPY PRO DEBRIDEMENT SUBCUTANEOUS TISSUE 20 SQCM/< Right 04/21/2024 DEBRIDEMENT SKIN AND SUBCU, LOWER EXTREMITY (WRVU 1.01) performed by Janet Carrington MD at [facility] MAIN OR VS ARTERIOGRAM LOWER EXTREMITY VASCULAR SURGERY 04/11/2024 VS Arteriogram Lower Extremity Vascular Surgery 04/11/2024 Kristi Renae MD [facility] INTERVENTIONL RAD Social history and habits: [...] on filedocumented in this encounter Care Teams Healthcare Economics Consultant Relationship Specialty Start Date End Date Ismael Albarran [place] [address] [place] [address] PCP - General Internal Medicine 05/16/24 documented as of this encounter
--- OUTSIDE RECORDS SUMMARY | 2024-12-05 12:33 | XMS_ITS | Encounter Summary ---
Author Organization [facility] Address [facility] [place] [address] Care Team Providers Care Door Person Name Role Phone Ismael Albarran Primary Care Provider + Encounter Details Date Type Department Care Team (Latest Contact Info) Description 05/16/2024 1:45 PM EDT Laboratory Appointment Lab [address] [place] [address] CKD (chronic kidney disease) stage 5, GFR less than 15 ml/min; Anemia of chronic renal failure, stage 4 (severe) Social History Tobacco Use Types Packs/Day Years Used Date Smoking Tobacco: Every Day Cigarettes Last attempted to quit: 12/26/2018 Smokeless Tobacco: Never Comments:smoking a few a day Alcohol Use Standard Drinks/Week Comments No 0 (1 standard drink = 0.6 oz pur e alcohol) [facility] Utilities Answer Date Recorded In the past 12 months has [employer], gas, oil, or water [address] threatened to shut off services in your [...] place to sleep or slept in a mcfp (including now)? No 02/20/2024 Housing Stability Vital Sign Answer Lon e Recorded In the last 12 months, was t here a time when you were not able to pay the mortgage or rent on time? No 04/21/2024 In the past 12 months, how m any times have you moved where you were living? 1 04/21/2024 At any time in the past 12 m [facility], were you homeless or living in a mcfp (including now)? No 04/21/2024 DH IPV Inpatient [...] of chronic renal failure, stage 4 (severe) documented in this encounter Results * (ABNORMAL) Creatinine (05/16/2024 1:59 PM EDT) Creatinine 5.72(H) 0.80 - 1.50 mg/dL [facility] Est Glomerular Filtration Rate 11(L) >=60 mL/min/1. 73 m?? [facility] Comment: This patient's estimated [...] In Lab Kristi Renae MD CHEMISTRY ORDERABLES [facility] [place] [address] documented in this encounter Visit Diagnoses Diagnosis CKD (chronic kidney disease) stage 5, GFR less than 15 ml/min Chronic kidney disease, Stage V Anemia of chronic renal failure, stage 4 (severe) documented in this encounter Care Teams Door Person Relationship Specialty Start Date End Date Ismael Albarran [place] [address] [place] [address] PCP - General Internal Medicine 05/16/24 documented as of this encounter
--- OUTSIDE RECORDS SUMMARY | 2024-12-05 12:33 | XMS_ITS | Encounter Summary ---
Author Organization Count Includes [facility] Address [facility] [place] [address] Care Team Providers Care Sliver Machine Operator Name Role Phone Ismael Albarran Primary Care Provider + Encounter Details Date Type Department Care Team (Latest Contact Info) Description 05/16/2024 Travel Social History Tobacco Use Types Packs/Day Years Used Date Smoking Tobacco: Every Day Cigarettes Last attempted to quit: 12/26/2018 Smokeless Tobacco: Never Comments:smoking a few a day Alcohol Use Standard Drinks/Week Comments No 0 (1 standard drink = 0.6 oz pur e alcohol) [facility] Utilities Answer Date Recorded In [...] any time in the past 12 m [facility], were you homeless or living in a alf (including now)? No 04/21/2024 DH IPV Inpatient [...] on filedocumented in this encounter Care Teams Sliver Machine Operator Relationship Specialty Start Date End Date Ismael Albarran PA [address] [place] [address] PCP - General Internal Medicine 05/16/24 documented as of this encounter
--- OUTSIDE RECORDS SUMMARY | 2024-12-05 12:34 | XMS_ITS | Encounter Summary ---
Author Organization [facility] Address [facility] [place] [address] Care Team Providers Care Automobile Drivers Name Role Phone Ken Greer MD Primary Care Provider [phone] Reason for Referral * Home Health Care (Routine) - Closed Specialty Diagnoses / Procedures Referred By Nader gardiner Referred To Contact Diagnoses Sepsis with acute organ dysfunction, due to unspecified organism, unspecified organ dysfunction type, unspecified whether septic shock present Non-healing wound of right heel Kristi Renae MD [facility] [place] [address] a & [address] [address] Referral ID Status Reason Start Date Expiration Date V isits Requested Visits Authorized [id number] Closed Consult, Test & Treat 04/29/2024 10/26/2024 999 999 Reason for Visit * Reason Comments Foot Pain * Auth/Cert (Routine) Specialty Diagnoses / Procedures Referred By Conteben t Referred To Contact Diagnoses Non healing left heel wound Sepsis with acute organ dysfunction, due to unspecified organism, unspecified organ dysfunction type, unspecified whether septic shock present Kristi Renae MD [facility] [place] [address] [facility] Referral ID Status Reason Start Date Expiration Date Visits Re quested Visits Authorized [id number] 1 1 Encounter Details Date Type Department Care Team (Latest Contact Info) Description 04/20/2024 4:43 PM EDT - 04/29/2024 2:57 PM EDT Hospital Encounter Surgical Unit Level 4 [place] [address] Sourav Bryson MD [place], Kristi Smith MD [facility] [place] [address] Sepsis with acute organ dysfunction, due to unspecified organism, unspecified organ dysfunction type, unspecified whether septic shock present; Non-healing wound of right heel; Irregular heart beat; Hyperkalemia Discharge Disposition: Home with VNA Social History Tobacco Use Types Packs/Day Years Used Date Smoking Tobacco: Every Day Cigarettes Last attempted to quit: 12/26/2018 Smokeless Tobacco: Never Comments:smoking a few a day Alcohol Use Standard Drinks/Week Comments No 0 (1 standard drink = 0.6 oz pur e alcohol) [facility] Utilities Answer Date Recorded In the past 12 months has th e [employer], gas, oil, or water [employer] threatened to shut off services in your [...] in a custodial (including now)? No 04/21/2024 DH IPV Inpatient [...] Sign Reading Time Taken Comments Blood Pressure 174/78 04/29/2024 11:57 AM EDT Pulse 77 04/28/2024 11:27 AM EDT Temperature 36.9 ??C (98.4 ??F) 04/29/2024 7:50 AM ED T Respiratory Rate 16 04/29/2024 7:50 AM EDT Oxygen Saturation 97% 04/29/2024 7:50 AM EDT Inhaled Oxygen Concentration - - Weight 86.2 kg (190 lb) 04/20/2024 9:12 PM EDT Height 175.3 cm (5' 9) 04/20/2024 9:12 PM EDT Body Mass Index 28.06 04/20/2024 9:12 PM EDT documented in this encounter Discharge Summaries * Kristi Renae MD - 04/29/2024 1:34 PM EDT Inpatient - Discharge Summary Patient Name: Gerson Bruner Patient Age: 58 y.o. Birthdate: 1965 Admit date: 04/20/2024 Discharge date and time: 04/29/2024 Attending Physician: Kristi Renae MD Discharging Provider: Ruby Mcgill APRN Discharging Service: Vascular Surgery Operations/Major Procedures: 04/21/24: RIGHT guillotine through-ankle amputation 04/25/2024: RIGHT BKA formalization Active Hospital Problems: Active Hospital Problems Diagnosis Non healing left heel wound Sepsis with encephalopathy without septic shock Resolved Hospital Problems No resolved problems to display. Active Non Hospital Problems: Active Non-Hospital Problems Diagnosis Hypertensive urgency Critical ischemia of lower extremity Acute hypoxic respiratory failure Surgical wound present Status post below knee amputation, left Diabetic foot ulcer Blister of second toe of right foot Postoperative anemia due to acute blood loss Non-healing open wound of heel TIA (transient ischemic attack) Right sided numbness CKD (chronic kidney disease) stage 5, GFR less than 15 ml/min Secondary hyperparathyroidism Hyperglycemia Pre-transplant evaluation for CKD (chronic kidney disease) Essential hypertension Proteinuria Anemia of chronic renal failure, stage 4 (severe) Essential hypertension with goal blood pressure less than 130/80 Diabetes mellitus Hyperlipidemia Herniation of lumbar intervertebral disc with radiculopathy Type II or unspecified type diabetes mellitus with neurological manifestations, uncontrolled(250.62) Leg cramps Cigarette smoker Unspecified hearing loss History of Presentation: Gerson Bruner is a 58 y.o. male PMH longstanding insulin-dependent T2DM and ESRD on HD (MWF), TIA (2018, thought to be secondary to small vessel disease), well known to the Vascular Surgery Service s/p 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 ([place]) and right SFA/PT angioplasty 04/11/24. His BKA has been healing well. Presented to the ED this evening after visit to [facility] where he was found to be febrile with interval worsening of a arge eschar on his right heel. Patient and report that he is offloading it continuously, washing it daily and painting with Betadine. Endorses feeling flushed with chills and experiencing increasing pain the the RLE heel related to the wound over the past 2-3 days. Operations/Major Procedures: 02/20: Left BKA on 02/21/24 ([place]) 04/11: Right SFA angioplasty, Right SFA DCBA, Right PT angioplasty ([place]) Hospital Course: Patient admitted to Vascular Surgery service and started on broad spectrum antibiotics for sepsis with encephalopathy without septic shcok. . Nephrology was consulted for hemodialysis needs. Patient to OR for above procedure on HD1 with: Findings: Right heel eschar unroofed with malodorous, boggy pus (sent for fluid culture). Purulence noted to be tracking distally along sole of foot. Right guillotine below-knee amputation performed without complication. Patient readmitted for post operative management. Cardiology consulted for atrial fibrillation Assessment/Recommendations: For this 58 year old gentleman who has IDDM, ESRD, TIA, and severe vascular disease [facility] due to Right heel infection s/p debridement/guillotine operation for source control whois now seen to be in atrial fibrillation with RVR. Would recommend the following: - please stop Diltiazem 120 and fractionate into Diltiazem 30 q6 hours and uptitrate as needed for elevated rates. Specifically, consider increasing to Diltiazem 45 q6 if his heart rates are 130's+. Although I suspect as patient recovers from acute infectious insult, rates will also improve. - CHADSVASC 5 would start anticoagulation. Consider heparin gtt if further procedure is planned for, or could start DOAC if not. Defer this to surgery. - would discontinue Amlodipine 10 mg. It seems that this medication was planned to be discontinued when the Diltiazem was initiated but due to medication reconciliation issues at last discharge this was not done. Discontinuing the Amlodipine will also allow more blood pressure room for titration ofDiltiazem/ BB. Diabetes Management team consulted for assistance blood glucose management. Please see final assessment recs below. Patient returned to OR for above procedure on 04/25/24: Findings: Pale muscle with minimal switch. Closure of right BKA performed in standard fashion. Closed primarily and wrapped with xerofrom fluffs kerlix and JA Patient readmitted for post operative management. Patient continued HD 3x weekly. Patient with poorly controlled post operative pain, Sciatic sciatic/ popliteal nerve block catheter placed on 04/25/24 and was removed on 04/28/24 when pain well controlled. Patient continued to have well managed pain with oral regimen. Patient remained HDS and afebrile, AUOP post quiñones removal, tolerating PO. Patient resumed home eliquis on day of discahrge and Lisinopril 10mg daily started per Nephrology recommendation. Patient worked with PT OT who initially recommended discharge to acute rehab facility. Patient and refuse acute rehab as 56 miles from home and HD and refused SNF based on prior admission to SNF. Patient worked with PT on day of discharge and was ultimately deemed to be ready for dischargeto home with VNA services. He will return in 2 weeks for a wound check and continue ASA and Eliquisbut will d/c Plavix. Physical Exam: General: NAD, resting comfortably HEENT: normocephalic, atraumatic CVS: regular rate Pulm: breathing comfortably on RA Abd: soft, non tender, non distended Ext: LLE: Well healed BKA site, no erythema or drainage RLE: BKA i no erythema, no drainage Neuro: No focal deficits Diabetes Management: ASSESSMENT Patient is a 58 y.o. 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 Diabetes suboptimally controlled and currently complicated by infection, surgery. Currently with variability of blood glucose levels while hospitalized requiring adjustment of insulin regimen and DM medications. Due to elevated glucose, recommend increasing glargine to 23 untis PLAN Lantus:23 units daily Lispro 1:8 insulin to carbohydrate ratio Lispro for correction q 4 hours using 1:30>150 correction scale Diet Renal/ CHO count level 2 Important Studies and Lab Data: Labs: CBC Lab Results Component Value Date WBC 8.7 04/29/2024 Hemoglobin 8.8 (L) 04/29/2024 Hematocrit 28.5 (L) 04/29/2024 Platelets 438 (H) 04/29/2024 Lab Results Component Value Date Sodium 138 04/29/2024 Potassium 5.3 (H) 04/29/2024 Chloride 100 04/29/2024 CO2 24 04/29/2024 BUN 33 (H) 04/29/2024 Creatinine 6.41 (H) 04/29/2024 Glucose Lvl 235 (H) 04/29/2024 Discharge Condition: stable Discharge to: [facility] [address] [place] [address] Future Appointments and Orders Future Appointments and Orders Future Appointments Provider Department Dept Phone 05/16/2024 3:30 PM Jigna Freire APRN Vascular Surgery at [facility] Arrive at: [employer] Area [phone] Future Orders Complete By Expires Referral to Home Health [REF34 Custom] As directed Process Instructions: If no progress note charted, please enter Clinical details in comments. Scheduling Instructions: Comments: Please evaluate Gerson Bruner for admission to Home Health. [address] [facility] [place] [address] (home) Date of : 1965 Inpatient DOCUMENTATION FOR VNA SERVICES (INCLUDING THOSE PATIENTS WITH MEDICARE COVERAGE REQUIRING HOME VNA SERVICES AND/OR HOSPICE SERVICES) PATIENT'S LOCATION: Gerson Bruner [address] [facility] [place] [address] (home) Cell: Telephone Information: Landscape Architect's Name: Xander In discussion with the attending physician, it is certified that this patient is under their care and that they, or a Nurse Practitioner, Clinical Nurse specialist or Physician Spray Stainer who is working directly with them, had a face to face encounter that meets the physician face to face encounter requirements with this patient on 04/29/24 (MD please enter DC date here) The encounter with the patient was in whole, or in part, for the following medical condition, whichis the primary reason for home health care services: s/p below knee amputation In discussion with the provider, it is certified that, based on their findings, the following services are medically necessary for home health services. To provide the following care/treatments with the clinical findings supporting the need for services as follows: HOME CARE ORDERS: RN ORDERS: Assess vital signs, cardiopulmonary status, nutrition, hydration, elimination -Additional Orders: Monitor medication effectiveness and management, Reinforce education regarding health issues, and Assess wound or incision. BKA incision can be wrapped in kerlix and changed daily. If no drainage, it can be left open to air. Vascular Surgery will remove sutures/remi PT ORDERS: Continue rehab for endurance, gait stability and strength with mobility and transfers. Home safety evaluation. Home exercise program if appropriate. OT ORDERS: Assess and continue rehab for managing ADLs. HOME HEALTH CARE AGENCY: [facility] [address] [place] [address] START OF CARE: within 24-48 hours of discharge In discussion with the attending physician, it is certified that the clinical findings support thatthis patient is homebound because absences from home require considerable and taxing effort due to:Restricted mobility due to lower extremity strength and motion due to recent surgery Unsteady gait, poor balance, requiring assistive devices and/or assistance of another. Please note that any additional orders needs or changes will need to be obtained from this patient's PCP: Ken Greer MD [address] [facility] [address] . All VNA agencies which cover the area of patient's residence have been reviewed, either verbally or in writing, and patient/familyhave chosen the home health care agency noted. Questions: Disciplines Requested: Nursing Physical Therapy Occupational Therapy Anticoagulation & Antiplatelet: Anticoagulation: Agent: apixiban Indication: A Fib Intended Duration: life long Antiplatelet: Agent: ASA Indication: ASCVD Intended Duration: life long For questions regarding these medications, please contact: Vascular Surgery Discharge Medications: Your Medications New Medications Dose Details apixaban 5 mg tablet Commonly known as: Eliquis Take 1 tablet by mouth 2 times daily. 5 mg Refills: 0 HYDROmorphone 4 mg tablet Commonly known as: Dilaudid Take 1 tablet by mouth every 4 hours as needed for Pain (for moderate pain 3-6 take one tablet, severe pain 7-10 take two tabs). 4 mg Quantity: 40 tablet Refills: 0 lisinopriL 10 mg tablet Commonly known as: Zestril Take 1 tablet by mouth daily. 10 mg Quantity: 90 tablet Refills: 3 polyethylene glycoL 17 gram/dose Powder Commonly known as: Miralax Take 17 g by mouth 2 times daily. 17 g Quantity: 255 g Refills: 1 senna-docusate 8.6-50 mg Tablet Commonly known as: Pericolace Take 1 tablet by mouth daily. 1 tablet Quantity: 60 tablet Refills: 11 tiZANidine 4 mg tablet Commonly known as: Zanaflex Take 1 tablet by mouth every 8 hours as needed. 4 mg Quantity: 30 tablet Refills: 0 Continued medications with new dosing Dose Details insulin glargine-yfgn 100 unit/mL Solution Commonly known as: Semglee Inject 23 Units subcutaneously daily. What changed: how much to take 23 Units Refills: 0 Continued medications, unchanged Dose Details acetaminophen 325 mg tablet Commonly known as: Tylenol Take 3 tablets by mouth every 6 hours. 975 mg Quantity: 30 tablet Refills: 1 amLODIPine 10 mg tablet Commonly known as: Norvasc Take 1 tablet by mouth daily. 10 mg Quantity: 90 tablet Refills: 3 aspirin 81 mg chewable tablet Take 81 mg by mouth daily. 81 mg Quantity: 30 tablet Refills: 3 atorvastatin 40 mg tablet Commonly known as: Lipitor Take 1 tablet by mouth every evening. 40 mg Quantity: 90 tablet Refills: 3 carvediloL 12.5 mg tablet Commonly known as: Coreg Take 1 tablet by mouth 2 times daily (with meals). 12.5 mg Quantity: 60 tablet Refills: 11 cholecalciferoL 1,000 unit tablet Commonly known as: Vitamin D3 Take 1 tablet by mouth daily. 1,000 Units Quantity: 90 tablet Refills: 3 dilTIAZem CD 120 mg CD (ER) 24 hr casule Commonly known as: Cardizem CD Take 1 capsule by mouth daily. 120 mg Quantity: 30 capsule Refills: 0 insulin lispro 100 unit/mL Solution Commonly known as: HumaLOG Inject 0-8 Units subcutaneously 3 times daily (with meals). 0-8 Units Quantity: 1 mL Refills: 12 pantopraz[address] EC [address] tablet Commonly known as: Protonix Take 1 tablet by mouth daily. 40 mg Quantity: 90 tablet Refills: 3 pregabalin 100 mg capsule Commonly known as: Lyrica Take 1 capsule by mouth 2 times daily. 100 mg Quantity: 60 capsule Refills: 0 sevelamer 800 mg tablet Commonly known as: Renagel 2 tablets, 3 times a day with each meal Quantity: 180 tablet Refills: 5 STOPPED Medications clopidogreL 75 mg tablet Commonly known as: Plavix Updated Allergies/ADRs: Allergies Allergen Reactions Clindamycin Swelling. Gabapentin swelling Zoloft [Sertraline] Other reaction(s): Unsure Follow-up Recommendations for Providers: 2 week wound check Instructions Given to Patient at Discharge: Patient Instructions Patient Instructions You were admitted after having a below knee amputation.. All of this went very well. Your physicianwill want you to be seen in approximately two weeks for a wound check. . All of this will be ordered and sent to you in the mail. If for some reason you don't receive this within a week or so please call our office as your followup is very important. For Pain: Take Tylenol extra strength 2 tablets every 6 hours round the clock Take Tizanidine ( xanaflex) as needed 3 x per day Take Dilaudid tablet 1 tab for moderate pain, 2 tabs for severe pain every 6 hours as needed Dilaudid can cause severe constipation, please take the laxative prescribed while taking this opioid Our Nephrology Physicians have recommended starting you on Lisinopril 10mg daily. A prescription has been sent to your pharmacy. Please continue to take your Eliquis (Apixiban) twice daily and Aspirin 81mg daily. We have stoppedyour Plavix and do not want you to take this medication any longer. Visiting nurses and physical therapy will start on Wednesday Call your doctor if: Any fever, any drainage, redness or separation of your incision Activity level: up as tolerated but watch for swelling of your stump . PLEASE do not put pillows under stump when sleeping or lying. It is very important to keep knee straight so that this joint doesnot get contracted. Diet: resume your previous diabetic diet Driving: none right now Shower/Bath: ok to shower and wash all incisions under running water, pat dry. No soaking in a pool/bath/hottub for 2-4 weeks Wound Care: can keep wrapped with Kerlix and change daily. For any problems or questions please call [phone] For issues on weeknights after 5pm and weekends please call [phone] and ask for the Vascular Fellow supervisor communications and signals. Ruby Mcgill APRN * Shruthi Quan MD - 04/28/2024 5:30 PM EDT AMA Discharge Vascular Surgery Service Gerson Bruner is s/p Right BKA for a septic right heel wound. He decided to leave AMA on 04/28/2024.Nerve cath was removed by APS on 04/28. He will have 2 week wound check follow up. No dvt ppx will beneeded as he takes Eliquis for a fib. VNA cannot be arranged. Discussed risks of AMA d/c with patient and he elects to leave. Russell Cohen MD Fellow addendum: After further discussions with nursing patient elected to stay. He is understandably concerned and frustrated with his hospital stay. Will work on optimizing p.o. pain control this evening and have reevaluation with PT tomorrow. If we can optimize his mobility and pain control we will try for possible planned discharge tomorrow pending any other change in his clinical course. Shruthi Quan MD Vascular Fellow PGY6, pager [phone] documented in this encounter Discharge Instructions * Patient Instructions* Ruby Mcgill, MONA - 04/29/2024 11:48 AM EDT Patient Instructions You were admitted after having a below knee amputation.. All of this went very well. Your physicianwill want you to be seen in approximately two weeks for a wound check. . All of this will be ordered and sent to you in the mail. If for some reason you don't receive this within a week or so please call our office as your followup is very important. For Pain: Take Tylenol extra strength 2 tablets every 6 hours round the clock Take Tizanidine ( xanaflex) as needed 3 x per day Take Dilaudid tablet 1 tab for moderate pain, 2 tabs for severe pain every 6 hours as needed Dilaudid can cause severe constipation, please take the laxative prescribed while taking this opioid Our Nephrology Physicians have recommended starting you on Lisinopril 10mg daily. A prescription has been sent to your pharmacy. Please continue to take your Eliquis (Apixiban) twice daily and Aspirin 81mg daily. We have stoppedyour Plavix and do not want you to take this medication any longer. Visiting nurses and physical therapy will start on Wednesday Call your doctor if: Any fever, any drainage, redness or separation of your incision Activity level: up as tolerated but watch for swelling of your stump . PLEASE do not put pillows under stump when sleeping or lying. It is very important to keep knee straight so that this joint doesnot get contracted. Diet: resume your previous diabetic diet Driving: none right now Shower/Bath: ok to shower and wash all incisions under running water, pat dry. No soaking in a pool/bath/hottub for 2-4 weeks Wound Care: can keep wrapped with Kerlix and change daily. For any problems or questions please call [phone] For issues on weeknights after 5pm and weekends please call [phone] and ask for the Vascular Fellow supervisor communications and signals. documented in this encounter Medications at Time [...] as of this encounter Progress Notes * Angely Gomez, PT - 04/29/2024 2:57 PM EDT Physical Therapy Note Treatment Number PT: 2 Patient profile: Gerson Bruner is a 58 y.o. male admitted on 04/20/[address] Kristi Renae MD.Per note, eGrson Bruner is a 58 y.o. male with a history of longstanding insulin-dependent T2DM and ESRD on HD (MWF), TIA (2019, thought to be secondary to small vessel disease), well known to the Vascular Surgery Service s/p 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 ([place]) and right SFA/PT angioplasty 04/11/24 who presented with infected right heal and systemic signs of illness. S/p guillotine amputation of his right ankle (04/21) and staged subsequent formalization to right BKA (04/25) given extent of infection. Will continue antibiotics until dressing comes down on POD 3. Will work towards optimizing pain control and continue dialysis. Leukocytosis today likely reactive from OR. Prior vascular history 02/20: Left BKA on 02/21/24 ([facility]) 04/11: Right SFA angioplasty, Right SFA DCBA, Right PT angioplasty ([place]) Operations This Hospitalization 04/21/2024: Right through ankle amputation ([facility]) 04/25/2024: Right completion above knee amputation ([facility]) 24 hour events/Subjective -Difficulty completing dialysis yesterday due to pain (M/W/F schedule) - Anesthesia performed rescue nerve catheter placement -Frustrated this morning and expressing desire to leave AGAINST MEDICAL ADVICE Social History: (per patient report) Home set-up: Lives with his and his brother in his brother's house. Reports his house is beingbuilt currently. Reports his brother's house is multiple levels, however he stays on the 1st floor and does not go to the 2nd floor at all due to inability to negotiate the stairs. There is a full bathroom down stairs. Pt's reports she is currently applying to be his multimedia artist caregiver and will be able to assist him multimedia artist as needed. Bathroom Set-up: walk in shower, shoulder chair Stairs: denies any stairs to enter, flat entry way, denies having to do any stairs once inside home Baseline Mobility: Modified independent with manual w/c, reports he transferred with a slide board between surfaces. Reports his w/c fits into his brother's home everywhere. Equipment at home: manual w/c with removable arm rests and leg rests, commode, shower chair, slide board Fall history: did not report any Precautions/Special Considerations: hx of L below knee amputation, new R BKA, ESRD on dialysis (MWF), hx of DM2, fall risk, NWB RLE, high levels of pain, high risk for skin breakdown Mobility and Positioning Recommendations: Pt to utilize supervision for transfer bed <> wheelchair Please encourage up to chair for meal times as able. Subjective: I'm so ready to go home Objective: Patient seen for physical therapy and demonstrated the following: Pain: denies Vital Signs: WNL Mental Status: alert, oriented to person, place, and time Skin: ja wrap observed RKE, edema R residual limb, healed incision L residual limb Musculoskeletal: ROM: WFL LLE, RLE 0-85 degrees knee flexion Strength: Upper extremities 5/5, LLE 4/5, RLE 4/5 hip, 3-/5 knee Bed Mobility: HOB flat, without bed rails Supine to Sit: IND Sit to Supine: IND Transfers: Bed <> Chair: supervision for transfer with and without slide-board Wheelchair: propelled wheelchair for short distance in room with supervision Therex: encouraged Pt to perform tissue healing exercises (quad set, glute set) 20 reps multiple times a day to assist with swelling & circulation Pt left in wheelchair, with all needs met, and with call mitchell in reach following visit. Assessment: Gerson Bruner was seen today for physical therapy treatment. Patient tolerated therapyvery well and demonstrated massive improvements from his prior visits. Notably Patient demonstratedability to perform bed mobility and bed <> chair transfers consistently & safely without assist. While Patient still presents with decreased strength, decreased balance, and decreased rangeof motion below baseline, he has demonstrated he is capable of safely & independently navigating his home. Patient also has support from and appropriate DME. As such he is ready for d/c homewith home health therapy and no further IP PT is warranted. Discharge Recommendations: Based on the current findings, Anticipated Discharge Disposition (PT): home with home health when medically ready for hospital discharge. Consult Recommendations: No other consults recommended at this time. Equipment needs: Anticipated Equipment Needs at Discharge (PT): None Goals: To be achieved by 05/27/24: ALL MET Pt. to demonstrate knowledge of safety limitations and precautions and will appropriately request assistance for functional activities and to mobilize. Pt. to perform bed mobility with modified independence from flat bed. Pt. to perform transfers with modified independence using slide board or scoot transfers. Pt. to propel manual wheelchair 150 ft with modified independence with BUE without cues for technique. Pt will tolerate progression towards upright with stable vital signs. Plan: Therapy Frequency (PT): Monitor for therapy interventions as outlined in initial evaluation. Patient agrees with plan as stated. Time IN / OUT: 4007-1277 Total Minutes, Physical Therapy: 22 Angely Gomez PT , DPT Pager: [phone] Physical Therapy Inpatient Rehabilitation Department * Donavon Guzman RN - 04/29/2024 2:48 PM EDT Discharge note Patient has seen by PT with transfer from bed to W/C. Did well. R leg stump dressing cdi. Tolerating diet well. AV shunt + bruit thrill. HC removed. [facility] referral call made report given. Home with via w/c to car. [facility]/Home PT will be seeing him next Wednesday per team. Pain managed well with dilaudid 4 mg po at this time. See Doc flow for assessment. Donavon Guzman RN * Felton Lugo MD - 04/29/2024 10:52 AM EDT Hypertension/Nephrology Inpatient Follow-up Gerson Bruner [id number] 1965 ID: 58 y.o. old male seen for ESRD. Interval History: Uneventful night. No complaints this AM. CV reg, resp CTA, Ext no edema. BP modestly elevated. Hgb below target, phos elevated. HD Wednesday with epo for anemia. Would start lisinopril 10mg daily for hypertension. * Ruby Mcgill APRN - 04/29/2024 8:32 AM EDT Vascular Surgery Progress Note Patient ID Gerson Bruner is a 58 y.o. 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 Prior vascular history 02/20: Left BKA on 02/21/24 ([place]) 04/11: Right SFA angioplasty, Right SFA DCBA, Right PT angioplasty ([place]) Operations This Hospitalization 04/21/2024: Right through ankle amputation ([place]) 04/25/2024: Right completion above knee amputation ([facility]) 24 hour events/Subjective - in good spirits on rounds this am - HDS, afebrile Objective BMI: Weight: 86.2 kg (190 lb) (04/20/242111) BMI (Calculated): 28.06 BMI Classification: Over Weight Intake/Output Summary (Last 24 hours) at 04/29/2024 0832 Last data filed at 04/28/2024 2315 Gross per 24 hour Intake 810 ml Output 2850 ml Net -2040 ml Temp: [36.7 ??C (98.1 ??F)-36.9 ??C (98.4 ??F)] Heart Rate: [68-77] Resp: [15-18] BP: (151-184)/(70-83) SpO2: [94 %-100 %] Heart Rate from SpO2: [63 bpm-73 bpm] Physical Exam: General: NAD, resting comfortably HEENT: normocephalic, atraumatic CVS: regular rate Pulm: breathing comfortably on RA Abd: soft, non tender, non distended Ext: LLE: Well healed BKA site, no erythema or drainage RLE: BKA i no erythema, no drainage Neuro: No focal deficits Labs Last 3 wbc, hgb, hct plt Recent Labs 04/29/24 0620 04/28/24 0548 04/27/24 0547 WBC 8.7 9.2 10.6* HGB 8.8* 8.6* 7.9* HCT 28.5* 28.8* 26.2* PLATELET 438* 458* 360* Last 3 Lytes Recent Labs 04/29/24 0620 04/28/24 0548 04/27/24 0547 NA 138 136 139 K 5.3* 5.6* 4.9 CL 100 97* 100 CO2 24 22 26 BUN 33* 46* 42* CREATININE 6.41* 8.27* 6.62* Last Ca, Mg, Phos Recent Labs 04/29/24 0620 CALCIUM 9.4 PHOS 6.2* MAGNESIUM 0.90 Microbiology 04/21 Culture from amputated Right Heel; Drainage : Gram Positive Cocci, Gram negative organisms New Studies CXR: Known wound at the heel of the right foot. No discrete evidence of osteomyelitis within the limitation of radiography. Ankle Xray: Known wound at the heel of the right foot. No discrete evidence of osteomyelitis within the limitation of radiography. MELLY - legs 02/18/24 Right Pressure (mm Hg) Waveform TBI Brachial Artery 190 Dorsalis Pedis (Ankle) Artery >240 [place]-Biphasic Posterior Tibial (Ankle) Artery >240 Monophasic Great Toe 110 0.58 Left Pressure (mm Hg) MELLY Waveform TBI Brachial Artery AVF Dorsalis Pedis (Ankle) Artery >240 Monophasic Posterior Tibial (Ankle) Artery 95 0.50 Monophasic Great Toe 85 0.45 Interpretation: RIGHT: Mild lower extremity arterial occlusive disease. Significant progression when compared to the previous exam. LEFT: Moderate lower extremity arterial occlusive disease. Significant progression when compared tothe previous exam. Assessment & Plan Gerson Bruner is a 58 y.o. 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 S/p guillotine amputation of his right ankle (04/21) and staged subsequent formalization to right BKA (04/25) given extent of infection. Dressing down, incision well approximated, no drainage or erythema. Pain well controlled s/p Nerve cath removal. PT recommend acute rehab, patient and spouse desire to go home. Will have PT reevaluate today for home. - restart home Eliquis - Appreciate nephrology recommendations - Dilaysis M/W/F, has gotten some additional days due to volume status -Likely anemia of chronic disease in addition to some component of acute blood loss anemia from surgery. Gets abo at dialysis - Type II DM appreciate endocrine recommendations - Hgb A1C 8.4 on 03/13/24 - Continue aspirin, statin - Appreciate cardiology consultation - recommended diltiazem 30 Q6, dc amlodipine - SQH, SCDs Ruby Mcgill APRN Vascular Surgery 04/29/24 [id number] * Gianluca Ge RN - 04/29/2024 6:31 AM EDT Images from the original note were not included. OUTCOME EVALUATION NOTE: OUTCOME SUMMARY: Patient A/Ox4. Vitals WNL on RA. Bad pain overnight requiring PRN IV dilaudid x2, Subcutaneous dilaudid x2, and PO dilaudid x3, Zanaflex x2. Patient frustrated with pain control as wanting to go home. Pain appears to be improved this AM. Patient in good spirits hoping to DC today. PLAN MOVING FORWARD: -Pain control -Encourage patient to weight shift -BG every 4 hours -Work with PT in the morning INDIVIDUALIZED FALL PREVENTION INTERVENTIONS: Patient-specific fall risk factors per assessment: [current deficits]: pain, unfamiliar environment, new RBKA and old LBKA Assistance [level of assistance required for transfers and ambulation]: 1 assist to transfer to chair/wheelchair Supervision [direct monitoring required during toileting and ADLs]: hands on Surveillance [continuous indirect monitoring]: Masimo, telemetry, purposeful rounding Patient-specific fall prevention interventions for sensory deficits provided, if applicable: [X] N/A CARE PLAN GOAL OUTCOME EVALUATION: Ongoing Problem: Adult Inpatient Plan of Care Goal: Plan of Care Review Outcome: Ongoing (Interventions Implemented as Appropriate) Goal: Patient-Specific Goal (Individualized) Outcome: Ongoing (Interventions Implemented as Appropriate) Goal: Absence of Hospital-Acquired Illness or Injury Outcome: Ongoing (Interventions Implemented as Appropriate) Goal: Optimal Comfort and Wellbeing Outcome: Ongoing (Interventions Implemented as Appropriate) Goal: Readiness for Transition of Care Outcome: Ongoing (Interventions Implemented as Appropriate) Problem: Fall Injury Risk Goal: Absence of Fall and Fall-Related Injury Outcome: Ongoing (Interventions Implemented as Appropriate) Problem: Adjustment to Amputation Goal: Optimal Adjustment to Amputation Outcome: Ongoing (Interventions Implemented as Appropriate) Problem: BADL (Basic Activities of Daily Living) Impairment (Lower Extremity Amputation) Goal: Optimal Safe BADL Performance Outcome: Ongoing (Interventions Implemented as Appropriate) Problem: IADL (Instrumental Activities of Daily Living) Impairment (Lower Extremity Amputation) Goal: Optimal Safe IADL Performance Outcome: Ongoing (Interventions Implemented as Appropriate) Problem: Lower Limb Care (Lower Extremity Amputation) Goal: Effective Lower Limb Care Outcome: Ongoing (Interventions Implemented as Appropriate) Problem: Mobility Impairment (Lower Extremity Amputation) Goal: Optimal Mobility [place] and Safety Outcome: Ongoing (Interventions Implemented as Appropriate) Problem: Pain and Hypersensitivity (Lower Extremity Amputation) Goal: Acceptable Pain/Hypersensitivity Control Outcome: Ongoing (Interventions Implemented as Appropriate) Problem: Prosthetic Use and Management (Lower Extremity Amputation) Goal: Effective Prosthesis Use and Management Outcome: Ongoing (Interventions Implemented as Appropriate) Problem: Confusion Acute Goal: Optimal Cognitive Function Outcome: Ongoing (Interventions Implemented as Appropriate) * Maicol Dumont - 04/28/2024 4:49 PM EDT Nutrition Services Note - Low Nutrition Acuity Gerson Bruner is a 58 y.o. male Reason for intervention: hospital day 9 Nutrition Plan: Continue current diet order Encourage good PO intake Insulin and Renvela noted Monitor weight Patient scheduled for a hospital length of stay nutrition evaluation. Gym Teacher unable to meet with Pt, Pt's chart reviewed. Per documentation patient has mostly excellent PO intakes recorded at 100% (one 0%) over the past 5 days when not NPO. According to dining services software they have ordered anaverage ~1287kcals/day within the same duration. Unable to assess weight trends at this time d/t only having one reported weight for this admission. Please update and trend wts to allow for ongoing assessment of weight changes. Clinical Nutrition to monitor and follow. Active Orders Diet Renal diet 2 GM NA; 60/60/75 CHO counting level 2 Frequency: Effective Now Number of Occurrences: Until Specified Admit Weight: 86.18 kg Estimated body mass index is 28.06 kg/m?? as calculated from the following: Height as of this encounter: 175.3 cm (5' 9). Weight as of this encounter: 86.2 kg (190 lb). Wt Readings from Last 5 Encounters: 04/20/24 86.2 kg (190 lb) 04/11/24 89.4 kg (197 lb) 04/11/24 89.4 kg (197 lb) 03/13/24 89.2 kg (196 lb 10.4 oz) 03/09/24 81.6 kg (180 lb) *The following information was obtained via pt chart* Weight loss: Unable to assess Appetite: Excellent (75%-100%) Food allergies:no known food allergies Chewing/Swallowing difficulty: none Nausea/Vomiting: no nausea and no vomiting Last Bowel Movement: 04/27/24 Nutrition services to follow weekly through hospital course unless consulted in the interim. Maicol Dumont, Customs Guard * Ismael Menchaca MD - 04/28/2024 2:37 PM EDT Acute Pain Service Peripheral Nerve Catheter Removal Catheter removed at 1428 after infusion being paused for three hours. Pain well controlled with oral medications. Coagulation status is acceptable. Catheter removed with tip intact. Insertion site clean and without drainage, pain or erythema. Paris Flores MD Acute Pain Service Anesthesiology PGY-4 I have seen and examined the patient, providing olivares components as outlined above. I have reviewed the resident???s note and agree with the plan. APS will sign off, please reconsult with any further questions. Ismael Menchaca MD * Ruby Villareal MD - 04/28/2024 11:00 AM EDT NEPHROLOGY PROGRESS NOTE Patient seen at dialysis. Clinical and laboratory data reviewed. Stable treatment. No issues with dialysis or access. A/P: - ESRD: Next Wednesday, 05/01, if still admitted. - Anemia: Hgb is below goal. Ferritin very elevated as of 04/24, so iron is not indicated. Will plan for epo 16,000 units at dialysis on Wednesday. - Hyperphosphatemia: Despite recent increase in sevelamer to 1600mg with meals, his phosphorus is worsening. He appears to be getting the medication. Please ensure he is getting it right as he startsto eat his meal. Ruby Villareal MD Nephrology Pager: [phone] * Ismael Menchaca MD - 04/28/2024 10:58 AM EDT Acute Pain Medicine Service Daily Visit Note Gerson Bruner is being evaluated for the management of their postoperative pain. Pain is categorized mixed. Interval History: Gerson is POD3 from right BKA. No acute issues overnight. Per nursing notes, he has a strong desireto return home, even if that would be against medical advice. Gerson was seen today while undergoing HD. He describes his pain as well controlled, with phantom limb pain being his greatest complaint.It feels as if there is something sitting on the top of his foot. We paused his sciatic nerve catheter pump, to do a trial of his pain control. Problem List: Active Hospital Problems Diagnosis Non healing left heel wound Sepsis with encephalopathy without septic shock Resolved Hospital Problems No resolved problems to display. Active Non-Hospital Problems Diagnosis Hypertensive urgency Critical ischemia of lower extremity Acute hypoxic respiratory failure Surgical wound present Status post below knee amputation, left Diabetic foot ulcer Blister of second toe of right foot Postoperative anemia due to acute blood loss Non-healing open wound of heel TIA (transient ischemic attack) Right sided numbness CKD (chronic kidney disease) stage 5, GFR less than 15 ml/min Secondary hyperparathyroidism Hyperglycemia Pre-transplant evaluation for CKD (chronic kidney disease) Essential hypertension Proteinuria Anemia of chronic renal failure, stage 4 (severe) Essential hypertension with goal blood pressure less than 130/80 Diabetes mellitus Hyperlipidemia Herniation of lumbar intervertebral disc with radiculopathy Type II or unspecified type diabetes mellitus with neurological manifestations, uncontrolled(250.62) Leg cramps Cigarette smoker Unspecified hearing loss Vital Signs: Last Set of Vitals BP 174/70 (BP Location (NBP): Right arm, Patient Position: Sitting) Pulse 72 Temp 36.9 ??C (98.4 ??F) (Oral) Resp 17 Ht 175.3 cm (5' 9) Wt 86.2 kg (190 lb) SpO2 98% BMI 28.06 kg/m?? Pain Scores: 8 Physical Exam: Affect: Awake, alert, no distress Pain Behaviors:none, sitting in bed Labs: WBC/Hgb/Hct/Plts: 9.2 8.6* 28.8* 458* (04/28 548) BUN/Cr/glu/ALT/AST/amyl/lip: 46/8.27/251/--/--/--/-- (04/28 548) Pertinent Hospital Medications: Tylenol 975 q6h Dilaudid 0.2mg IV q2h PRN Dilaudid 1mg IV q4h PRN Dilaudid 0.5mg SQ q4h PRN Dilaudid 4mg PO q4h PRN Dilaudid 6mg PO q4h PRN Lyrica 100mg PO BID Sciatic Catheter infusion 0.2% Ropivacaine 03/27 - Paused Tizanidine 4mg PO q8 PRN Assessment: Gerson is now POD3 from R BKA, with no pain complaints currently. His greatest source of pain is currently phantom limb pain which he is understanding of, given his prior L BKA experience. He is highly motivated to progress his care so that he may be discharged. Sciatic nerve catheter paused. He has not required any IV rescue doses of medications and I anticipate he will do well with this transition Plan: - Sciatic catheter paused. If pain is well controlled this afternoon, we will remove his catheter. - Agree with all other meds as currently ordered. Plan was discussed with primary team. Paris Flores MD 04/28/2024 Acute Pain Medicine Service Pager: [phone] I have seen and examined the patient, providing olivares components as outlined above. I have reviewed the resident???s note and agree with the plan. Ismael Menchaca MD * Ruby Mcgill APRN - 04/28/2024 9:21 AM EDT Images from the original note were not included. Vascular Surgery Progress Note Patient ID Gerson Bruner is a 58 y.o. 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 Prior vascular history 02/20: Left BKA on 02/21/24 ([facility]) 04/11: Right SFA angioplasty, Right SFA DCBA, Right PT angioplasty ([place]) Operations This Hospitalization 04/21/2024: Right through ankle amputation ([place]) 04/25/2024: Right completion above knee amputation ([facility]) 24 hour events/Subjective - in good spirits on rounds this am - surgical dressing down, incision well approximated, no active drainage - HDS, afebrile Objective BMI: Weight: 86.2 kg (190 lb) (04/20/242111) BMI (Calculated): 28.06 BMI Classification: Over Weight Intake/Output Summary (Last 24 hours) at 04/28/2024 0921 Last data filed at 04/27/2024 2330 Gross per 24 hour Intake 360 ml Output 250 ml Net 110 ml Temp: [36.7 ??C (98.1 ??F)-37 ??C (98.6 ??F)] Heart Rate: [62-72] Resp: [16-18] BP: (148-182)/(68-104) SpO2: [95 %-100 %] Heart Rate from SpO2: [62 bpm-81 bpm] Physical Exam: General: NAD, resting comfortably HEENT: normocephalic, atraumatic CVS: regular rate Pulm: breathing comfortably on RA Abd: soft, non tender, non distended Ext: LLE: Well healed BKA site, no erythema or drainage RLE: BKA incision dressing down, no erythema, no drainage Neuro: No focal deficits Labs Last 3 wbc, hgb, hct plt Recent Labs 04/28/24 0548 04/27/24 0547 04/26/24 0458 WBC 9.2 10.6* 13.1* HGB 8.6* 7.9* 8.9* HCT 28.8* 26.2* 29.1* PLATELET 458* 360* 429* Last 3 Lytes Recent Labs 04/28/24 0548 04/27/24 0547 04/26/24 0458 NA 136 139 139 K 5.6* 4.9 5.5* CL 97* 100 97* CO2 22 26 23 BUN 46* 42* 57* CREATININE 8.27* 6.62* 8.00* Last Ca, Mg, Phos Recent Labs 04/28/24 0548 CALCIUM 9.4 PHOS 8.3* MAGNESIUM 0.89 Microbiology 04/21 Culture from amputated Right Heel; Drainage : Gram Positive Cocci, Gram negative organisms New Studies CXR: Known wound at the heel of the right foot. No discrete evidence of osteomyelitis within the limitation of radiography. Ankle Xray: Known wound at the heel of the right foot. No discrete evidence of osteomyelitis within the limitation of radiography. MELLY - legs 02/18/24 Right Pressure (mm Hg) Waveform TBI Brachial Artery 190 Dorsalis Pedis (Ankle) Artery >240 [place]-Biphasic Posterior Tibial (Ankle) Artery >240 Monophasic Great Toe 110 0.58 Left Pressure (mm Hg) MELLY Waveform TBI Brachial Artery AVF Dorsalis Pedis (Ankle) Artery >240 Monophasic Posterior Tibial (Ankle) Artery 95 0.50 Monophasic Great Toe 85 0.45 Interpretation: RIGHT: Mild lower extremity arterial occlusive disease. Significant progression when compared to the previous exam. LEFT: Moderate lower extremity arterial occlusive disease. Significant progression when compared tothe previous exam. Assessment & Plan Gerson Bruner is a 58 y.o. 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 S/p guillotine amputation of his right ankle (04/21) and staged subsequent formalization to right BKA (04/25) given extent of infection. Dressing down, incision well approximated, no drainage or erythema. Pain much better controlled with nerve catheter, will discuss with APS regarding removal. PT recommend acute rehab, patient and spouse desire to go home. - d/c Zosyn - hold SQH in anticipation of nerve cath removal - restart home Eliquis once nerve catheter removed - Appreciate nephrology recommendations - Dilaysis M/W/F, has gotten some additional days due to volume status -Likely anemia of chronic disease in addition to some component of acute blood loss anemia from surgery. Gets abo at dialysis - Type II DM appreciate endocrine recommendations - Hgb A1C 8.4 on 03/13/24 - Continue aspirin, statin - Appreciate cardiology consultation - recommended diltiazem 30 Q6, dc amlodipine - anticoagulation when able - SQH, SCDs Ruby Mcgill APRN Vascular Surgery 04/28/24 [id number] * Renu Gil APRN - 04/28/2024 7:02 AM EDT Follow Up Diabetes Consult Patient Interview Spent time today reviewing patient's glucose levels, insulin use and chart notes. Reviewed changes with patient. Objective Temp: [36.7 ??C (98.1 ??F)-37 ??C (98.6 ??F)] Heart Rate: [62-72] Resp: [16-18] BP: (148-182)/(68-104) SpO2: [90 %-100 %] Heart Rate from SpO2: [62 bpm-75 bpm] Current Regimen from previous note Lantus:20 units daily Lispro 1:8 insulin to carbohydrate ratio Lispro for correction q 4 hours using 1:30>150 correction scale Diet Renal/ CHO count level 2 Recent Glucose Levels Recent Labs 04/27/24 2330 04/27/24201104/27/24 1656 04/27/24 1213 04/27/24 0644 04/27/24 0359 04/26/24 2332 04/26/248 04/26/24 1709 04/26/24 1151 04/26/24 0730 04/26/24 0424 POCGLU 207* 198 226* 195 109 78 102 121 100 79 118 112 ASSESSMENT Patient is a 58 y.o. 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 Diabetes suboptimally controlled and currently complicated by infection, surgery. Currently with variability of blood glucose levels while hospitalized requiring adjustment of insulin regimen and DM medications. Due to elevated glucose, recommend increasing glargine to 23 untis PLAN Lantus:23 units daily Lispro 1:8 insulin to carbohydrate ratio Lispro for correction q 4 hours using 1:30>150 correction scale Diet Renal/ CHO count level 2 Diabetes Discharge Instructions Please test blood sugars 4 times daily prior to breakfast, lunch, dinner, and bedtime. Please test blood sugars with any symptoms. Please work on eating a diet that is lower in fat and carbohydrates. Please work on staying active.The goal is thirty minutes daily, as tolerated. The below insulin regimen is based on what you required in the hospital. As you return to a normal home routine, your insulin needs may change. Please reach out to your provider for assistance. Instructions for Lantus Insulin (LONG ACTING) Please inject Lantus 23 units every morning. If your fasting blood sugars are above 150mg/dl two days in a row, please increase your Lantus by 2units. If your fasting blood sugars are below 90mg/dl two days in a row, please decrease your Lantus by 2 units. This dose now becomes your new daily dose unless it need to be further adjusted based on future glucose readings. Instructions for Mealtime Humalog Insulin This is the rapid-acting insulin, used at mealtime to prevent a high BG after you eat. Check your BG before each meal. If your BG is 80 or higher, inject Humalog right before eating. If your BG is lower than 80, or you have symptoms of a low BG, treat the low BG first, then eat your meal and take the Humalog after eating. 3. Inject Humalog for breakfast, for lunch and for dinner based on a 1 unit per every 8 gram carbohydrate insulin to carbohydrate ratio. For a low carb/small meal (such as a sandwich which is approximately 30 grams of carbohydrates), you would take 3 units; for a medium meal (such as a sandwich and small bag of chips which is approximately 42 grams of carbohydrates), you would take 5 units; for a large/high carb meal (such as 1.5 cups of pasta with meat sauce, which is approximately 60 grams of carbohydrates), you would take 7 units If your blood sugar before a meal is elevated, please add the following correction of 1 unit for every 30 points above a blood sugar of 150mg/dl. Please follow the scale below. This is to be added toyou base dose of Humalog. Blood Sugar HUMALOG DOSE 151-180 ADD 1 unit 181-210 ADD 2 units 211-240 ADD 3 units 241- 270 ADD 4 units 271-300 ADD 5 units >310 or HI ADD 6 units and call Doctor Please remember to take your Humalog at the start of your meal. 1. If you forget to take it at the start of your meal and it has been less than an hour, please take the full amount of insulin you had calculated before starting to eat. 2. If it has been over an hour since you started eating, please recheck your blood sugar and give acorrection only. 3. Try to stay active and drink lots of water, this will help bring down your blood sugars. Also try an avoid eating additional carbohydrates. Remember that blood sugars can be elevated by other thing than carbohydrates. So it is important tocheck prior to meal times even if you are not eating and give correction dose. Treatment of Low Blood Sugar (Hypoglycemia) If your BG is lower than 80, you are likely to feel shaky, sweaty and lightheaded. This is a signalthat your body needs more sugar. Quickly eat or drink a small serving of something sweet, such as: 4 ounces fruit juice or regular (not diet) soda 6 lifesavers small box of raisins 4 glucose tablets (~15 gm of glucose) If your BG is very low <50, you can double the amount above or take 30 gm of glucose gel/tablets. Sit and rest and you should feel better within a few minutes. Once you are feeling better, try to determine why your BG was so low. Common causes of hypoglycemia include skipping a meal, lots of exercise, too much insulin or any combination of these things. Understanding the cause my help you to avoid another low BG in the future. Please test blood sugars prior to driving, make sure glucose levels are greater than 100mg/dl. If not have a snack and retest blood sugars in 15 minutes. Please carry a glucose source on you at all times. If blood sugar prior to bed is less than 110mg/dl, have a small 15 g of carbohydrate snack. Call your doctor for blood sugars less than 80 or greater than 300 twice in one day to have your insulin doses adjusted. Renu Gil APRN [facility] [place] Endocrinology Diabetes Management Pager [phone] * Shruthi Quan MD - 04/27/2024 2:37 PM EDT Vascular Surgery Progress Note Patient ID Gerson Bruner is a 58 y.o. 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 Prior vascular history 02/20: Left BKA on 02/21/24 ([place]) 04/11: Right SFA angioplasty, Right SFA DCBA, Right PT angioplasty ([place]) Operations This Hospitalization 04/21/2024: Right through ankle amputation ([place]) 04/25/2024: Right completion above knee amputation ([facility]) 24 hour events/Subjective -Difficulty completing dialysis yesterday due to pain (M/W/F schedule) - Anesthesia performed rescue nerve catheter placement -Frustrated this morning and expressing desire to leave AGAINST MEDICAL ADVICE Objective BMI: Weight: 86.2 kg (190 lb) (04/20/24 1630) Intake/Output Summary (Last 24 hours) at 04/27/2024 1437 Last data filed at 04/27/2024 1215 Gross per 24 hour Intake 1050 ml Output 350 ml Net 700 ml Temp: [36.7 ??C (98.1 ??F)-37.1 ??C (98.8 ??F)] Heart Rate: [70-72] Resp: [16-19] BP: (154-180)/(56-86) SpO2: [90 %-100 %] Heart Rate from SpO2: [70 bpm-79 bpm] Physical Exam: General: NAD, resting comfortably HEENT: normocephalic, atraumatic CVS: regular rate Pulm: breathing comfortably on RA Abd: soft, non tender, non distended Ext: LLE: Well healed BKA site, no erythema or drainage RLE: BKA incision dressing c/d/I Neuro: No focal deficits Labs Last 3 wbc, hgb, hct plt Recent Labs 04/27/24 0547 04/26/24 0458 04/25/24 0923 WBC 10.6* 13.1* 8.0 HGB 7.9* 8.9* 9.2* HCT 26.2* 29.1* 31.8* PLATELET 360* 429* 391* Last 3 Lytes Recent Labs 04/27/24 0547 04/26/24 0458 04/25/24 0923 NA 139 139 140 K 4.9 5.5* 5.5* CL 100 97* 99 CO2 26 23 23 BUN 42* 57* 52* CREATININE 6.62* 8.00* 6.89* Last Ca, Mg, Phos Recent Labs 04/27/24 0547 CALCIUM 9.0 PHOS 6.8* MAGNESIUM 0.83 Microbiology 04/21 Culture from amputated Right Heel; Drainage : Gram Positive Cocci, Gram negative organisms New Studies CXR: Known wound at the heel of the right foot. No discrete evidence of osteomyelitis within the limitation of radiography. Ankle Xray: Known wound at the heel of the right foot. No discrete evidence of osteomyelitis within the limitation of radiography. MELLY - legs 02/18/24 Right Pressure (mm Hg) Waveform TBI Brachial Artery 190 Dorsalis Pedis (Ankle) Artery >240 Bingham-Biphasic Posterior Tibial (Ankle) Artery >240 Monophasic Great Toe 110 0.58 Left Pressure (mm Hg) MELLY Waveform TBI Brachial Artery AVF Dorsalis Pedis (Ankle) Artery >240 Monophasic Posterior Tibial (Ankle) Artery 95 0.50 Monophasic Great Toe 85 0.45 Interpretation: RIGHT: Mild lower extremity arterial occlusive disease. Significant progression when compared to the previous exam. LEFT: Moderate lower extremity arterial occlusive disease. Significant progression when compared tothe previous exam. Assessment & Plan Gerson Bruner is a 58 y.o. 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 S/p guillotine amputation of his right ankle (04/21) and staged subsequent formalization to right BKA (04/25) given extent of infection. Will continue antibiotics until dressing comes down on POD 3. Pain much better controlled with nerve catheter. Discussed with patient that he cannot leave with nervecatheter and thus if this was removed he will be in pain as he was yesterday and would not recommend him leaving under the circumstances. Patient expressed understanding though was frustrated. Will attempt to help him feel more comfortable while inpatient. Leukocytosis improved this a.m. Will need PT evaluation for dispo planning Right heal infection/ PAD: - S/p recent angiogram on 04/11 - Right guillotine amputation of his right ankle (04/21) and staged subsequent formalization to right BKA (04/25) given extent of infection - Continue IV Zosyn (04/20-TBD) and vancomycin till Post op day three when dressing comes down CKD on HD: - Appreciate nephrology recommendations - Dilaysis M/W/F, has gotten some additional days due to volume status Anemia: -Likely anemia of chronic disease in addition to some component of acute blood loss anemia from surgery. Gets abo at dialysis -Will recheck hemoglobin tomorrow Endocrinology: - Type II DM appreciate endocrine recommendations - Hgb A1C 8.4 on 03/13/24 PAD/CAD: - Continue aspirin, statin Afib: - Appreciate cardiology consultation - recommended diltiazem 30 Q6, dc amlodipine - anticoagulation when able DVT ppx: - SQH, SCDs Shruthi Quan MD Vascular Surgery 04/27/24 [id number] Associated attestation - Kristi Renae MD - 04/28/2024 9:54 AM EDT I have seen and examined the patient, providing olivares components as outlined below. I have reviewed the resident???s above note; my evaluation of the patient is below: Recovering well post R BKA for severe R foot DM infection with sepsis and encephalopathy on admission. Plan for dressing down tomorrow, will stop antibx at that time assuming good appearance of surgicalincision. Pain well controlled with femoral nerve catheter. Pt wishes to leave, stressed the importance of remaining and uncontrolled pain he had prior to catheter being placed. Agreed to stay. Kristi Renae MD * Mary Kenny MD - 04/27/2024 12:04 PM EDT Nephrology Dialysis Note REASON FOR CONSULTATION: ESRD Management S/p R BKA on 04/11 INTERVAL HISTORY: Had HD yesterday with 2L UF Non oliguric He denied active complaints or concerns He has a chair at [facility] (his regular dialysis unit) and was trying to call them while I was at his bedside to see if they can take him tomorrow Hgb 7.9, tsat 19 Ferritin 1173, completed a course of venofer in February, gets epo 12K with dialysis BP uncontrolled while on carvedilol and cardizem Na and K and HCO3 wnl Ca wnl Phos elevated at 6.8 PTH elevated at 180 Vit D deficient Plan iHD tomorrow Will increase Epo with dialysis from 12K to 16K C/w sevelamer [id number] TIDWM Renal diet Start lisionpril 10 mg PO daily C/w Cholecalciferol 1000 units daily MEDICATIONS: insulin lispro 1-6 Units Subcutaneous Q4H PAULIE insulin glargine (Lantus;Semglee) (100 unit/mL) subcutaneous injection 20 Units Subcutaneous Daily sevelamer carbonate 1,600 mg Oral TID WC lidocaine 1 patch Transdermal Q24H insulin lispro 1-10 Units Subcutaneous TID WC dilTIAZem 30 mg Oral Q6H PAULIE sodium chloride 0.9 % (flush) 5 mL Intravenous BID heparin (porcine) 5,000 Units Subcutaneous 2 times per day acetaminophen 975 mg Oral Q6H PAULIE aspirin EC 81 mg Oral Daily atorvastatin 40 mg Oral QPM pantoprazole EC 40 mg Oral Daily pregabalin 100 mg Oral BID piperacillin-tazobactam 3.375 g Intravenous Q12H carvediloL 12.5 mg Oral BID WC Vasoactive/Sedating Meds: ROpivacaine VITALS: Last value Range last 24 hrs Temperature Temp: 36.7 ??C (98.1 ??F) Temp: [36.7 ??C (98.1 ??F)-37.1 ??C (98.8 ??F)] Heart Rate Heart Rate: 72 Heart Rate: [72] Blood Pressure BP: 154/68 BP: (154-180)/(56-86) Respiratory Rate Resp: 16 Resp: [16-19] SpO2 SpO2: 90 % SpO2: [90 %-96 %] PHYSICAL EXAM: Patient is awake alert not in acute distress No jaundice oral mucosa moist Neck- supple trachea central Chest- bilateral air entry present clear to auscultation no wheeze no crepitation CVS-S1-S2 present, no murmur regurgitation gallops. Abdomen-nontender nondistended, bowel sounds present. Extremities-peripheral pulses present, no edema. LUE AVF. Amputation present Neuro-patient is awake alert, moving all 4 limbs, motor examination is grossly normal. slight asterixis. LABS: CBC: Recent Labs 04/27/24 0547 04/26/24 0458 04/25/24 0923 WBC 10.6* 13.1* 8.0 HGB 7.9* 8.9* 9.2* PLATELET 360* 429* 391* Chemistry: Recent Labs 04/27/24 0547 04/26/24 0458 04/25/24 0923 NA 139 139 140 K 4.9 5.5* 5.5* CL 100 97* 99 CO2 26 23 23 BUN 42* 57* 52* CREATININE 6.62* 8.00* 6.89* GLUCOSE 109 109 182 Recent Labs 04/27/24 0547 04/26/24 0458 04/25/24 0923 04/25/24 0529 CALCIUM 9.0 8.5 8.5 -- MAGNESIUM 0.83 0.83 -- 0.85 PHOS 6.8* 7.4* -- 6.9* Patient staffed with Dr Jaylin Kenny Nephrology and HTN Fellow Associated attestation - Gisele Mosqueda MD - 04/27/2024 8:31 PM EDT I have seen and examined Mr Bruner, reviewed the relevant clinical and laboratory data and images, and discussed the case with Dr Kenny. Her note accurately reflects our jointly formulated assessmentand recommendations for management. Please preserve non dominant arm - no IVs or needle sticks - and do not place PICC in this patient to preserve veins for future permanent hemodialysis access. This is an evidence and guideline-based recommendation. Access for blood draws can be provided by a non tunnelled internal jugular catheter catheter placedby Interventional Radiology. (order internal jugular TLC), or port. Labs on dialysis days can be drawn pre-dialysis via the catheter or fistula by the dialysis unit staff. Use phase of care dialysis when placing the order. If opiates are indicated, Morphine, codeine, oxycodone, accumulate and have toxic metabolites in CKD stage 5 and dialysis patients. Fentanyl, methadone, dilaudid, are preferable. Tramadol dose shouldbe reduced by 50% Thank you for involving us in their care. We will continue to follow. * Ismael Menchaca MD - 04/27/2024 11:43 AM EDT Acute Pain Medicine Service Daily Visit Note Gerson Bruner is being evaluated for the management of their postoperative pain. Pain is categorized mixed. Interval History: Gerson is POD2 from right BKA. No acute issues overnight. Problem List: Active Hospital Problems Diagnosis Non healing left heel wound Resolved Hospital Problems No resolved problems to display. Active Non-Hospital Problems Diagnosis Hypertensive urgency Critical ischemia of lower extremity Acute hypoxic respiratory failure Surgical wound present Status post below knee amputation, left Diabetic foot ulcer Blister of second toe of right foot Postoperative anemia due to acute blood loss Non-healing open wound of heel TIA (transient ischemic attack) Right sided numbness CKD (chronic kidney disease) stage 5, GFR less than 15 ml/min Secondary hyperparathyroidism Hyperglycemia Pre-transplant evaluation for CKD (chronic kidney disease) Essential hypertension Proteinuria Anemia of chronic renal failure, stage 4 (severe) Essential hypertension with goal blood pressure less than 130/80 Diabetes mellitus Hyperlipidemia Herniation of lumbar intervertebral disc with radiculopathy Type II or unspecified type diabetes mellitus with neurological manifestations, uncontrolled(250.62) Leg cramps Cigarette smoker Unspecified hearing loss Vital Signs: Last Set of Vitals BP 166/72 (BP Location (NBP): Right arm, Patient Position: Lying) Pulse 72 Temp 36.8 ??C (98.2 ??F) (Oral) Resp 18 Wt 86.2 kg (190 lb) SpO2 90% BMI 28.06 kg/m?? Pain Scores: 5 Physical Exam: Affect: Awake, alert, no distress Pain Behaviors:none, sitting on side of bed, moving freely Labs: WBC/Hgb/Hct/Plts: 10.6* 7.9* 26.2* 360* (04/27 547) BUN/Cr/glu/ALT/AST/amyl/lip: 42/6.62/109/--/--/--/-- (04/27 547) Pertinent Hospital Medications: Tylenol 975 q6h Dilaudid 0.2mg IV q2h PRN Dilaudid 1mg IV q4h PRN Dilaudid 0.5mg SQ q4h PRN Dilaudid 4mg PO q4h PRN Dilaudid 6mg PO q4h PRN Lyrica 100mg PO BID Sciatic Catheter infusion 0.2% Ropivacaine 03/27 Tizanidine 4mg PO q8 PRN Assessment: Patient currently with good pain control. Gerson reports some discomfort but overall has satisfactory pain control. Much improved compared prior to nerve block. The sciatic catheter site is clean/dry/intact. Additional tegaderm dressing applied to reinforce. Pt reminded of Ambit pump button to deliver additional nerve block doses. He is asking to leave the hospital today. Plan: - continue sciatic catheter at current settings. Encourage button use on Ambit pump. Pt on SQ heparin; please discuss any anticipated changes to anticoagulation with APS prior to ordering. Will plan to wean nerve block tomorrow. - Agree with all other meds as currently ordered. Plan was discussed with primary team. APMS will continue to follow patient. Ismael Menchaca MD 04/27/2024 Acute Pain Medicine Service Pager: [phone] * Elle Finn V RN - 04/26/2024 10:13 PM EDT Patient was transferred from [facility] to 420 @2157. With AMbit pump on the right thigh intact. This RN oriented patient to new room, to staff and to use of call mitchell system. Bed alarm on. Call mitchell within reach * Zandra Tucker PT - 04/26/2024 2:45 PM EDT Physical Therapy Evaluation Patient profile: Gerson Bruner is a 58 y.o. male admitted on 04/20/[address] Kristi Renae MD.Per note, Gerson Bruner is a 58 y.o. 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 S/p guillotine amputation of his right ankle (04/21) and staged subsequent formalization to right BKA (04/25) given extent of infection. Will continue antibiotics until dressing comes down on POD 3. Will work towards optimizing pain control and continue dialysis. Leukocytosis today likely reactive from OR. Prior vascular history 02/20: Left BKA on 02/21/24 ([place]) 04/11: Right SFA angioplasty, Right SFA DCBA, Right PT angioplasty ([facility]) Operations This Hospitalization 04/21/2024: Right through ankle amputation ([place]) 04/25/2024: Right completion above knee amputation ([facility]) 24 hour events/Subjective - Dialysis yesterday am which he tolerated well (/W/ schedule) - OR yesterday and did well initially preoperatively with very poorly controlled pain post operatively - Increased pain medications overnight - No nausea or vomiting this am Patient with the following active problems: Past Medical History: Diagnosis Date Anemia Chronic kidney disease CKD (chronic kidney disease) stage 4, GFR 15-29 ml/min Diabetes mellitus Herniation of lumbar intervertebral disc with radiculopathy 08/16/2015 L4-5 left Hypertension Past Surgical History: Procedure Laterality Date PRO AMPUTATION ANKLE-TIB/FIB MALLEOLI Right 04/21/2024 @AMPUTATION, ANKLE (WRVU 10.37) performed by Janet Carrington MD at [facility] MAIN OR PRO AMPUTATION LOW LEG THRU TIB/FIB Left 02/21/2024 @AMPUTATION, BELOW-KNEE (WRVU 15.37) performed by Kristi Renae MD at [facility] MAIN OR PRO AMPUTATION LOW LEG, CIRCULAR Left 02/18/2024 @AMPUTATION, BELOW-KNEE, OPEN, GUILLOTINE (WRVU 9.79) performed by Kristi Renae MD at [facility] MAIN OR PRO ANASTOMOSIS, AV, ANY SITE Left 09/05/2018 AV FISTULA CREATION, DIRECT HEMODIALYSIS, ANY SITE, EG GABRIEL FISTULA UPPER EXTREMITY (WRVU 11.9) performed by Scout Reese MD at [facility] MAIN OR PRO COLONOSCOPY, REMV LESN, SNARE N/A 09/26/2019 COLONOSCOPY, POLYPECTOMY, REMOVAL LESION BY SNARE (WRVU 4.67) performed by Kaye Gibbs MD at [facility] ENDOSCOPY PRO DEBRIDEMENT SUBCUTANEOUS TISSUE 20 SQCM/< Right 04/21/2024 DEBRIDEMENT SKIN AND SUBCU, LOWER EXTREMITY (WRVU 1.01) performed by Janet Carrington MD at [facility] MAIN OR VS ARTERIOGRAM LOWER EXTREMITY VASCULAR SURGERY 04/11/2024 VS Arteriogram Lower Extremity Vascular Surgery 04/11/2024 Kristi Renae MD [facility] INTERVENTIONL RAD Active Non-Hospital Problems Diagnosis Hypertensive urgency Critical ischemia of lower extremity Acute hypoxic respiratory failure Surgical wound present Status post below knee amputation, left Diabetic foot ulcer Blister of second toe of right foot Postoperative anemia due to acute blood loss Non-healing open wound of heel TIA (transient ischemic attack) Right sided numbness CKD (chronic kidney disease) stage 5, GFR less than 15 ml/min Secondary hyperparathyroidism Hyperglycemia Pre-transplant evaluation for CKD (chronic kidney disease) Essential hypertension Proteinuria Anemia of chronic renal failure, stage 4 (severe) Essential hypertension with goal blood pressure less than 130/80 Diabetes mellitus Hyperlipidemia Herniation of lumbar intervertebral disc with radiculopathy Type II or unspecified type diabetes mellitus with neurological manifestations, uncontrolled(250.62) Leg cramps Cigarette smoker Unspecified hearing loss Social History: (per patient report) Home set-up: Lives with his and his brother in his brother's house. Reports his house is beingbuilt currently. Reports his brother's house is multiple levels, however he stays on the 1st floor and does not go to the 2nd floor at all due to inability to negotiate the stairs. There is a full bathroom down stairs. Pt's reports she is currently applying to be his multimedia artist caregiver and will be able to assist him multimedia artist as needed. Bathroom Set-up: walk in shower, shoulder chair Stairs: denies any stairs to enter, flat entry way, denies having to do any stairs once inside home Baseline Mobility: Modified independent with manual w/c, reports he transferred with a slide board between surfaces. Reports his w/c fits into his brother's home everywhere. Equipment at home: manual w/c with removable arm rests and leg rests, commode, shower chair, slide board Fall history: did not report any Precautions/Special Considerations: hx of L below knee amputation, new R BKA, ESRD on dialysis (MWF), hx of DM2, fall risk, NWB RLE, high levels of pain, high risk for skin breakdown Activity Orders (From admission to next 72h) Start Ordered Unscheduled Up with assistance PRN 04/25/242011 Mobility and Positioning Recommendations: Pt. to utilize scoot transfer backwards from bed>commode and forward from commode>bed while maintaining NWB RLE with 2 person assist with gait belt for transfers with nursing. Please encourage up to chair for meal times as able. Subjective: ???I need to go to the bathroom. How am I supposed to do it??? Objective: Pt agreeable to physical therapy evaluation today, met resting in bed. Patient seen for PT evaluation and demonstrated the following: Pain: reports high levels of pain in RLE throughout, 9/10 pain reported, RN aware, pt requested to still work with PT to get to commode despite pain Vital Signs: HR: 75 bpm SpO2: 97% room air BP: 170/82 mmHg Mental Status: alert, oriented to person, place, and time, appeared slightly lethargic Musculoskeletal: ROM: L BKA observed, WFL ROM LLE, new R BKA observed, grossly 0-~80 deg knee flexion AROM Strength: decreased generalized strength observed with functional tasks, limited assessment 2/2 pain reported Integumentary: ja wrap observed RKE, edema R residual limb, healed incision L residual limb Bed Mobility: Supine to Sit: CGA, cues for technique, head of bed elevated, using bed rail Sit to Supine: CGA, cues for technique, head of bed elevated, using bed rail Transfers: Sit to Stand: NA, due to bilateral BKA Stand to Sit: NA, due to bilateral BKA Bed > commode: moderate assist x2, gait belt, backward scoot transfer, max cues for technique/safe transfer technique Commode>bed: moderate assist x2, gait belt, forward scoot transfer, max cues for technique/safe transfer technique, pt able to maintain NWB RLE with max cues throughout Gait: Distance: NA, due to bilateral BKA Device used: NA Level of assist: NA Gait mechanics: NA Stairs: NA Balance: Sitting Static: good, SBA Sitting Dynamic: fair, CGA Standing Static: DNT Standing Dynamic / Gait: DNT Education: patient and significant other has been educated on Bed mobility, Transfers, Positioning,Safety , Precautions/protocol, Equipment use, Activity pacing/Energy conservation, Role of therapy,and Discharge planning and verbalize and demonstrate understanding. Patient status, treatment, and mobility recommendations discussed with nursing. Pt sitting in chair at end of physical therapy evaluation, call mitchell within reach, chair alarm set, and all needs met. Assessment: Gerson Bruner was seen today for physical therapy evaluation s/p R below knee amputation. Pt presents with impairments including decreased strength, pain, edema, decreased activity tolerance, decreased range of motion, reliance on AD, new precautions, impaired balance, and impaired skin integrity contributing to activity limitations, decreased participation in ADLs, and decreased ability to care for one's self. Pt demonstrated supine<>sit transfer with CGA with head of bed elevated and using bed controls. Pt reports high levels of pain in RLE, however pt requested to transfer to commode for toileting during PT evaluation. Pt required moderate assist x2 for backward scoot transfer from bed > commode and moderate assist x2 for forward scoot transfer from commode to bedwith maximal cues for safe transfer technique and for maintaining NWB RLE. Pt limited during evaluation due to high levels of pain, decreased generalized strength, decreased activity tolerance, new precautions and bilateral BKAs. Pt currently functioning below their baseline level of functional mobility and would benefit from short rehab stay in order to maximize independence and safety with functional mobility. Recommend patient discharge to acute rehab facility once medically ready for hospital discharge. Pt will continue to benefit from skilled physical therapy while in the hospital in order to maximize independence and safety with functional mobility and achieve therapeutic goals. Discharge Recommendations: Based on current findings- acute rehabilitation facility Discharge recommendation is based on the patient's current physical impairments, prior functional status, potential to return to prior level of function, patient motivation, reported home support, potential for functional gains, current level of endurance, reported home environment and anticipated trajectory of progress and may change based on patient progress during this hospitalization. Inpatient Physical Therapy Plan: Therapy Frequency (PT): 2-4 times/wk for therapy including balancetraining, bed mobility training, home exercise program, manual therapy techniques, motor coordination training, neuromuscular re- education, patient/family education, range of motion, strengthening, transfer training, and wheelchair managment/propulsion training. Patient/family understand and agree with plan as stated above. Consult Recommendations: No other consults recommended at this time. Equipment needs: Anticipated Equipment Needs at Discharge (PT): to be determined Goals: To be achieved by 05/27/24: Pt. to demonstrate knowledge of safety limitations and precautions and will appropriately request assistance for functional activities and to mobilize. Pt. to perform bed mobility with modified independence from flat bed. Pt. to perform transfers with modified independence using slide board or scoot transfers. Pt. to propel manual wheelchair 150 ft with modified independence with BUE without cues for technique. Pt will tolerate progression towards upright with stable vital signs. PT Evaluation Code Rationale: Diagnosis & Pertinent Co-Morbidities, personal factors, and present illness affecting Plan of Care: (see above); Additional personal factors or co- morbidities that impact plan: Total # of Factors: 0 1-2 3+ x Examination of body system impairments, functional limitations and behaviors, and/or participation restrictions. Addressing 1-2 elements Addressing 3 + elements x Addressing 4 + elements Clinical presentation: See assessment above. Stable/Uncomplicated Evolving/Fluctuating Symptoms Unstable/Unpredictable x Clinical decision making of moderate complexity based on pt's functional performance as outlined inthis evaluation. Time IN / OUT: 14:45-15:23 Total Time: 38 minutes; rosalva tam PT, Doctor of Physical Therapy Pager: [phone] Physical Therapy Inpatient Rehabilitation Department * Dayana Jordan, OT - 04/26/2024 2:44 PM EDT Occupational Therapy Evaluation Patient profile: Gerson Bruner is a 58 y.o. 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 Prior vascular history 02/20: Left BKA on 02/21/24 ([place]) 04/11: Right SFA angioplasty, Right SFA DCBA, Right PT angioplasty ([place]) Operations This Hospitalization 04/21/2024: Right through ankle amputation ([facility]) 04/25/2024: Right completion below knee amputation ([place]) Past Medical History: Diagnosis Date Anemia Chronic kidney disease CKD (chronic kidney disease) stage 4, GFR 15-29 ml/min Diabetes mellitus Herniation of lumbar intervertebral disc with radiculopathy 08/16/2015 L4-5 left Hypertension Past Surgical History: Procedure Laterality Date PRO AMPUTATION ANKLE-TIB/FIB MALLEOLI Right 04/21/2024 @AMPUTATION, ANKLE (WRVU 10.37) performed by Janet Carrington MD at [facility] MAIN OR PRO AMPUTATION LOW LEG THRU TIB/FIB Left 02/21/2024 @AMPUTATION, BELOW-KNEE (WRVU 15.37) performed by Kristi Renae MD at [facility] MAIN OR PRO AMPUTATION LOW LEG, CIRCULAR Left 02/18/2024 @AMPUTATION, BELOW-KNEE, OPEN, GUILLOTINE (WRVU 9.79) performed by Kristi Renae MD at [facility] MAIN OR PRO ANASTOMOSIS, AV, ANY SITE Left 09/05/2018 AV FISTULA CREATION, DIRECT HEMODIALYSIS, ANY SITE, EG GABRIEL FISTULA UPPER EXTREMITY (WRVU 11.9) performed by Scout Reese MD at [facility] MAIN OR PRO COLONOSCOPY, REMV LESN, SNARE N/A 09/26/2019 COLONOSCOPY, POLYPECTOMY, REMOVAL LESION BY SNARE (WRVU 4.67) performed by Kaye Gibbs MD at [facility] ENDOSCOPY PRO DEBRIDEMENT SUBCUTANEOUS TISSUE 20 SQCM/< Right 04/21/2024 DEBRIDEMENT SKIN AND SUBCU, LOWER EXTREMITY (WRVU 1.01) performed by Janet Carrington MD at [facility] MAIN OR VS ARTERIOGRAM LOWER EXTREMITY VASCULAR SURGERY 04/11/2024 VS Arteriogram Lower Extremity Vascular Surgery 04/11/2024 Kristi Renae MD [facility] INTERVENTIONL RAD Social History: Patient lives with his and cat in a walk out lower level of his brother's home. He reported heis building a house, but it is not complete. Pt is unable to access the main level of his brother'shome. 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 Home Setup: Bathroom has a walk in shower with a shower chair. Baseline ADL/Mobility: Pt was functioning at a wheelchair level prior to admission. assists with IADLs and provided minimal assistance with ADLs. DME: manual wheelchair, slide board, shower chair Precautions/Special Considerations: fall precautions, up with assist, hx of L BKA (02/21/24), new R BKA, NWB R residual limb Subjective: I can just get onto my knee and get over there. Pt stated while planning transfer from commode to bed. You are causing me more pain this way. Objective: Seen today for OT evaluation. Cognitive Status/Behavior: Behavior / Mood: alert, cooperative, and anxious Alert and oriented to: person and place Follows commands: 1 step, 2 step, and requires repetition Attention: difficulty attending to task/directions and requires cues to redirect Safety awareness: decreased insight into deficits Vision & Perception: WFL Communication: WFL Hearing: Hard of hearing Range of motion, strength, coordination: Hand dominance: right Bilateral UEs are within functional limitations LE limitations: bilateral BKA, reported significant pain R residual limb impacting strength and ROM Activities of Daily Living: Self-feeding: Set up Grooming: Min assist for set up and clean up seated EOB. Dressing: Min assist Bathing: Not assessed Toileting: Transfer: Mod assist of 2 for backward and forward scoot transfer bed to commode. Hygiene: assisted with hygiene. Functional Mobility: Supine to sit: Not assessed - seated EOB upon arrival. Sit to stand: N/A - bilateral BKA without prostheses. Lateral tranfers: Mod assist of 2 for backward and forward scoot transfer bed to commode. Sit to supine: Min assist secondary to pain. Balance: Static seated balance: Good Dynamic seated balance: Fair Vitals: RA At Rest SpO2 97% Heart Rate 75 Blood Pressure 170/82 Pain: High levels of pain reported R residual limb with activity. Skin: new R BKA, incision R residual limb, at high risk for skin breakdown Education: Role of Occupational Therapy, Range of motion , Activity tolerance, Positioning, Safety during ADL's and functional mobility , Alternating rest/activity , Increased participation in self-care and ADL's within hospital environment , Discharge planning , DME recommendations , Transfers, Mobility, Balance strategies, Weightbearing precautions, Activity restrictions, Level of assist and/orsupervision required, Caregiver training/education, and Goals Patient status, treatment, and mobility recommendations discussed with nursing. Assessment: Pt has been seen for occupational therapy evaluation. Gerson Bruner presents with the following performance skill deficits and client factors: increased pain, decreased activity tolerance, decreased flexibility/ROM, decreased strength, decreased sitting/standing balance, compromised mobility status, and skin integrity. These performance deficits have led to activity limitations and participation restrictions in the following areas of occupation: dressing, bathing, grooming, toileting, transfers/mobility, and community mobility. Pt was provided education/cues for safe technique and to avoid weight bearing on Right residual limb during participation in toileting routine using bedside commode. He required assist of 2 for transfers, and assisted with clothing management and hygiene. Recommend acute rehab at discharge for continued education for safe techniques and strengthening to support Pt's progress toward gaining independence in ADLs. Pt would benefit from further inp atient OT interventions to address performance deficits and maximize participation, independence, quality of life, health and wellness, prevention, and safety with activities of daily living. Equipment Needs Upon Discharge (OT): to be determined Consult Recommendations: No other consults recommended at this time Anticipated Discharge Disposition (OT): acute rehabilitation facility Activity Recommendations: Utilize upright chair position using bed features or transfer to recliner chair as appropriate withassist of 2 using slide board and gait belt Sit upright for all meals/meal times Encourage participation in ADL's by providing set up assist on tray table and physical assist only as needed Goals: To be achieved by May 10, 2024. Pt will demonstrate good dynamic sitting balance for improved participation in daily tasks. Pt will complete 2 grooming tasks at wheelchair level at the sink at [facility]. Pt will complete toileting routine including transfer, clothing management, and hygiene at [facility]. Pt will complete sponge bathing/showering routine seated in the bathroom with supervision assist. Pt will complete LB dressing with at modified independence using AE/compensatory strategies as needed. Pt will complete functional transfers at modified independence for increased participation in (I)ADLs. Pt will demonstrate understanding of wheelchair management within confined spaces and during set upfor safe functional transfers. Plan: OT: Therapy Frequency (OT): 2-4 times/wk Planned OT interventions: Role of OT, ADL retraining, Transfers & Functional mobility, Adaptiveequipment training, Therapeutic exercise, Therapeutic functional activity, Positioning recommendations & aids, Safety during ADL & functional mobility, Activity pacing/energy conservation education/training, Precautions/Protocol, Home management/IADL retraining, Balance training, Caregiver education/training , and Discharge planning Total Minutes, Occupational Therapy: 40 OT Evaluation Code Rationale: Diagnosis & Pertinent Co-Morbidities affecting Plan of Care: see PMHx Occupational Profile & Client History: Brief Expanded Extensive X Assessment of Occupational Performance: 1-3 performance deficits 3-5 performance deficits 5 + performance deficits X Clinical Decision Making: Low Moderate High X Clinical decision making of moderate complexity using standardized patient assessment instrument and measurable assessment of functional outcome. Pager: [phone] Dayana Jordan OT 04/27/2024 Occupational Therapy Rehabilitation Department * Ruby Villareal MD - 04/26/2024 1:07 PM EDT NEPHROLOGY PROGRESS NOTE Patient seen at dialysis. Clinical and laboratory data reviewed. Stable treatment. No issues with dialysis or access. Patient was not examined because he was repeatedly yelling and cursing at this video games storywriter. He was complaining about pain. I asked him to let me explain to him (nurse had already called me, and I advised him to contact the primary team; that had already been done before I arrived), but his behavior continued. I advised him at that point that I was going to step away. A/P: - ESRD: Next dialysis Wednesday. - Anemia: Hgb is below goal. Ferritin very elevated as of 04/24, so iron is not indicated. Will give epo 12,000 units at dialysis on Wednesday. - Hyperphosphatemia: Sevelamer just increased to 1600mg with meals. Continue that for now, and we can monitor the response. Ruby Villareal MD Nephrology Pager: [phone] * Shruthi Quan MD - 04/26/2024 11:08 AM EDT Vascular Surgery Progress Note Patient ID Gerson Bruner is a 58 y.o. 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 Prior vascular history 02/20: Left BKA on 02/21/24 ([place]) 04/11: Right SFA angioplasty, Right SFA DCBA, Right PT angioplasty ([place]) Operations This Hospitalization 04/21/2024: Right through ankle amputation ([place]) 04/25/2024: Right completion above knee amputation ([place]) 24 hour events/Subjective - Dialysis yesterday am which he tolerated well (M/W/F schedule) - OR yesterday and did well initially preoperatively with very poorly controlled pain post operatively - Increased pain medications overnight - No nausea or vomiting this am Objective BMI: Weight: 86.2 kg (190 lb) (04/20/24 1630) Intake/Output Summary (Last 24 hours) at 04/26/2024 1108 Last data filed at 04/26/2024 0729 Gross per 24 hour Intake 1610 ml Output 400 ml Net 1210 ml Temp: [36.2 ??C (97.2 ??F)-37.1 ??C (98.8 ??F)] Heart Rate: [58-75] Resp: [11-30] BP: (133-173)/(66-84) SpO2: [93 %-99 %] Heart Rate from SpO2: [58 bpm-77 bpm] Physical Exam: General: NAD, resting comfortably HEENT: normocephalic, atraumatic CVS: regular rate Pulm: breathing comfortably on RA Abd: soft, non tender, non distended Ext: LLE: Well healed BKA site, no erythema or drainage RLE: BKA incision dressing c/d/I Neuro: No focal deficits Labs Last 3 wbc, hgb, hct plt Recent Labs 04/26/2445704/25/2492204/24/24 0521 WBC 13.1* 8.0 9.8* HGB 8.9* 9.2* 9.1* HCT 29.1* 31.8* 30.1* PLATELET 429* 391* 381* Last 3 Lytes Recent Labs 04/26/2445704/25/24 0923 04/24/24 0521 NA 139 140 139 K 5.5* 5.5* 5.5* CL 97* 99 99 CO2 23 23 26 BUN 57* 52* 56* CREATININE 8.00* 6.89* 7.36* Last Ca, Mg, Phos Recent Labs 04/26/24457 CALCIUM 8.5 PHOS 7.4* MAGNESIUM 0.83 Microbiology 04/21 Culture from amputated Right Heel; Drainage : Gram Positive Cocci, Gram negative organisms New Studies CXR: Known wound at the heel of the right foot. No discrete evidence of osteomyelitis within the limitation of radiography. Ankle Xray: Known wound at the heel of the right foot. No discrete evidence of osteomyelitis within the limitation of radiography. MELLY - legs 02/18/24 Right Pressure (mm Hg) Waveform TBI Brachial Artery 190 Dorsalis Pedis (Ankle) Artery >240 [place]-Biphasic Posterior Tibial (Ankle) Artery >240 Monophasic Great Toe 110 0.58 Left Pressure (mm Hg) MELLY Waveform TBI Brachial Artery AVF Dorsalis Pedis (Ankle) Artery >240 Monophasic Posterior Tibial (Ankle) Artery 95 0.50 Monophasic Great Toe 85 0.45 Interpretation: RIGHT: Mild lower extremity arterial occlusive disease. Significant progression when compared to the previous exam. LEFT: Moderate lower extremity arterial occlusive disease. Significant progression when compared tothe previous exam. Assessment & Plan Gerson Bruner is a 58 y.o. 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 S/p guillotine amputation of his right ankle (04/21) and staged subsequent formalization to right BKA (04/25) given extent of infection. Will continue antibiotics until dressing comes down on POD 3. Will work towards optimizing pain control and continue dialysis. Leukocytosis today likely reactive from OR. Will need PT evaluation today for dispo planning Right heal infection/ PAD: - S/p recent angiogram on 04/11 - Right guillotine amputation of his right ankle (04/21) and staged subsequent formalization to right BKA (04/25) given extent of infection - Continue IV Zosyn (04/20-TBD) and vancomycin till Post op day three when dressing comes down CKD on HD: - Appreciate nephrology recommendations - Dilaysis M/W/F, has gotten some additional days due to volume status Endocrinology: - Type II DM appreciate endocrine recommendations - Hgb A1C 8.4 on 03/13/24 PAD/CAD: - Continue aspirin, statin Afib: - Appreciate cardiology consultation - recommended diltiazem 30 Q6, dc amlodipine - anticoagulation when able DVT ppx: - SQH, SCDs Shruthi Quan MD Vascular Surgery 04/26/24 [id number] * Renu Gil, FULFILLMENT SPECIALIST - 04/26/2024 6:53 AM EDT Follow Up Diabetes Consult Patient Interview Spent time today reviewing patient's glucose levels, insulin use and chart notes. Objective Temp: [36.2 ??C (97.2 ??F)-36.7 ??C (98.1 ??F)] Heart Rate: [58-64] Resp: [11-30] BP: (133-173)/(66-92) SpO2: [92 %-99 %] Heart Rate from SpO2: [58 bpm-78 bpm] Current Regimen from previous note 1. ILantus to 26 units qd 2. Lispro custom correction scale for BG>140 q 4 hrs CORRECTION BOLUS [1-6 Units] Custom Sliding Scale (BG in mg/dL): Correction factor 30 (1 unit of insulin is expected to drop theglucose 30 mg/dL) BG 140 - 170 Give 1 units BG 171 - 200 Give 2 units BG 201 - 230 Give 3 units BG 231 - 260 Give 4 units BG 261 - 290 Give 5 units BG greater than 290, give 6 units and recheck BG in 2 hours. If recheck BG remains GREATER THAN 240, GIVE 3 units (no more than two times) & call for new insulin orders. If recheck BG is less than 240 after two hours, give no insulin and resume prior schedule. DO NOT hold if NPO, unless specifically directed to do so by written order. Per Blood Glucose Monitoring Policy, re-check a BG of > 240 mg/dL in 2 hours. 3. Meal-associated Lispro 1unit: 8 gm carb ratio for each meal) 4. Diet carb control level 2 Recent Glucose Levels Recent Labs 04/26/24 0424 04/25/24 2333 04/25/24 1853 04/25/24 1810 04/25/24 1746 04/25/24 1136 04/25/24 0756 04/25/24 0419 04/25/24 0008 04/24/24 2003 04/24/24 1712 04/24/24 1531 POCGLU 112 154 73 68 57* 154 144 204* 237* 157 102 123 ASSESSMENT Patient is a 58 y.o. 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 Diabetes suboptimally controlled and currently complicated by infection, surgery. Currently with variability of blood glucose levels while hospitalized requiring adjustment of insulin regimen and DM medications. Due to hypoglycemia, changed CF target to 150 and change glargine to 20 units daily. Chnabged target to 150 PLAN 1. Decrease Lantus to 20 units qd 2. Lispro custom correction scale of 1;30>150 q 4 hrs 3. Meal-associated Lispro 1unit: 8 gm carb ratio for each meal) 4. Diet carb control level 2 Renu Gil APRN [facility] Endocrinology Diabetes Management Pager [phone] * Jean Henning MD - 04/25/2024 9:37 PM EDT Post-Operative Check Gerson Bruner is a 58 y.o. male s/p Procedure(s): AMPUTATION, BELOW-KNEE, SECONDARY CLOSURE OR SCAR REVISION (WRVU 8.76) S: No nausea/vomiting, chest pain, SOB, pain well controlled, offers no complaints. O: Temp: [36.2 ??C (97.2 ??F)-36.7 ??C (98.1 ??F)] Heart Rate: [58-64] Resp: [11-30] BP: (133-156)/(66-78) SpO2: [93 %-99 %] Heart Rate from SpO2: [58 bpm-65 bpm] I/O last 3 completed shifts: In: 1430 [P.O.:780; I.V.:550; IV Piggyback:100] Out: 5879 [Urine:200; Other:5654; Blood:25] I/O this shift: In: 120 [P.O.:120] Out: 0 Recent Results (from the past 24 hour(s)) POCT Glucose Result Value Ref Range POC Glucose 237 (H) 65 - 199 mg/dL POCT Glucose Result Value Ref Range POC Glucose 204 (H) 65 - 199 mg/dL Magnesium Result Value Ref Range Magnesium 0.85 0.69 - 1.07 mmol/L Phosphorus Result Value Ref Range Phosphorus 6.9 (H) 2.5 - 4.5 mg/dL Type and screen ([facility]/CGP/CHASE) Result Value Ref Range ABORH Type A POSITIVE Patient BB History Found Expires at 2359 on: 04/28/2024 Ab Screen Interp Negative ABORH Recheck Status Result Value Ref Range ABORH Type Recheck Completed Type and Screen Validity Result Value Ref Range T&S only valid at [facility] Hosp POCT Glucose Result Value Ref Range POC Glucose 144 65 - 199 mg/dL Basic Metabolic Panel (non-fasting) Result Value Ref Range Glucose Lvl 182 65 - 199 mg/dL BUN 52 (H) 10 - 20 mg/dL Creatinine 6.89 (H) 0.80 - 1.50 mg/dL Sodium 140 135 - 145 mmol/L Potassium 5.5 (H) 3.5 - 5.0 mmol/L Chloride 99 98 - 107 mmol/L CO2 23 22 - 31 mmol/L Anion Gap 18 (H) 5 - 15 mmol/L Calcium 8.5 8.5 - 10.5 mg/dL Estimated GFR 9 (L) >=60 mL/min/1.73 m?? Hemogram Result Value Ref Range WBC 8.0 4.0 - 9.5 x10(3)/mcL RBC 3.39 (L) 4.58 - 5.54 x10(6)/mcL Hemoglobin 9.2 (L) 13.7 - 16.5 g/dL Hematocrit 31.8 (L) 40.5 - 48.5 % MCV 93.8 (H) 82.9 - 93.1 fL MCH 27.1 (L) 27.5 - 32.1 pg MCHC 28.9 (L) 32.0 - 35.7 g/dL Platelets 391 (H) 145 - 357 x10(3)/mcL RDWSD 56.0 (H) 36.0 - 45.0 fL RDWCV 16.5 (H) 11.4 - 13.8 % MPV 11.4 7.6 - 12.9 fL nRBC % Auto 0.0 % nRBC Abs Auto 0.000 0.000 - 0.000 x10(3)/mcL Differential, Automated Result Value Ref Range Neutrophils % 59.8 % Neutr Abs (ANC) 4.79 1.70 - 6.10 x10(3)/mcL Lymphocytes % 20.8 % Lymphocytes Abs 1.7 0.9 - 3.2 x10(3)/mcL Monocytes % 11.9 % Monocyte Abs 1.0 (H) 0.3 - 0.9 x10(3)/mcL Eosinophils % 6.0 % Eosinophils Abs 0.5 (H) 0.0 - 0.4 x10(3)/mcL Basophils % 1.1 % Basophils Abs 0.1 0.0 - 0.1 x10(3)/mcL Immature Gran % 0.40 % Delmy Gran Abs 0.03 0.00 - 0.04 x10(3)/mcL Urinalysis with reflex Culture Specimen: Urine Result Value Ref Range Glucose UA 250 (A) Negative mg/dL Protein UA >=300 (A) Negative mg/dL Bilirubin UA Negative Negative mg/dL Urobilinogen UA Normal Normal mg/dL pH UA 7.5 5.0 - 8.0 Blood UA Negative Negative mg/dL Ketones UA Negative Negative mg/dL Nitrite UA Negative Negative Leukocytes UA Negative Negative mcL Appearance UA Turbid (A) Clear Spec [place] UA 1.022 1.005 - 1.030 Color UA Yellow Yellow Culture Reflexed No Urinalysis Microscopic Exam Result Value Ref Range RBC UA 2 0 - 3 /HPF WBC UA 4 (H) 0 - 3 /HPF Bacteria UA Few (A) None /HPF Squam Epith UA 3 <=4 /HPF Trans Epith UA <1 <=1 /HPF Hyaline Cast UA 2 0 - 2 /LPF POCT Glucose Result Value Ref Range POC Glucose 154 65 - 199 mg/dL POCT Glucose Result Value Ref Range POC Glucose 57 (L) 65 - 199 mg/dL POCT Glucose Result Value Ref Range POC Glucose 68 65 - 199 mg/dL POCT Glucose Result Value Ref Range POC Glucose 73 65 - 199 mg/dL Physical Exam Gen: A0x3, NAD, resting comfortably CVS: RRR Resp: breathing comfortably on RA Abd: soft, nontender, nondistended : no quiñones Ext: R BKA wrapped with JA with no strikethrough AP Gerson Bruner is a 58 y.o. male s/p completion R BKA currently in stable condition and recovering well - Renal diet 2 GM NA; 60/60/75 CHO counting level 2 - Pain well controlled - Hemodynamically stable - Patient does not void frequently, plan for HD tomorrow Jean Henning MD 04/25/2024 * Ivette Myles RN - 04/25/2024 7:00 PM EDT 7: Gerson Bruner arrives from OR 14 on bed to PACU 1. Placed patient on monitor with parametersadjusted to be appropriate for patient with alarms on and active. Vascular team requests that surgical site/stump be elevated, but that knee be completely straight/unsupported. 1830: Break coverage provided by PACU nurseKarli. 5: Patient meets PACU discharge criteria. Awaiting callback from 4D nurse after shift change to get report. 1950: Verbal report called to 4D nurseMyranda. Transport per protocol with patient returning to previous room, 410A. * Karli Fletcher RN - 04/25/2024 6:43 PM EDT 1815) Cover dinner break. Patient drinking apple juice for low blood sugar. Jessi DASILVA 1840) Service paged for orders. Patient anxious to put diet in before kitchen closes. Jessi RN * Shanel Stanley OT - 04/25/2024 3:22 PM EDT 04/25/24 1521 Evaluation & Treatment Document Type contact Comment, Session Not Performed Reviewed patient's chart today. Plan is for patient to go to the OR today for secondary BKA closure. Will follow up for OT evaluation post surgery. * Zandra Tucker PT - 04/25/2024 1:11 PM EDT Physical Therapy Note Document type: Contact Total minutes, Physical Therapy: 0 (non-billable) Reason: PT order received, patient's chart reviewed. Per chart review, plan is for patient to go tot OR today for secondary BKA closure. Will defer physical therapy evaluation today because of this, however will continue to follow and see once medically appropriate/available. Appreciate any updated activity orders/precautions. Zandra Tucker, PT, Doctor of Physical Therapy Pager: [phone] Physical Therapy Inpatient Rehabilitation Department * Ruby Villareal MD - 04/25/2024 11:09 AM EDT NEPHROLOGY PROGRESS NOTE Patient seen and examined in his room. Clinical and laboratory data reviewed. Patient's only concern today is that he be home for the 04/27 holiday. A/P: - ESRD: Patient did not undergo surgery yesterday as expected. Contacted by primary team, who wouldlike to proceed with surgery today without additional dialysis. Will therefore plan for full run tomorrow, which will get him back on his out-patient schedule. - Anemia: Hgb is below goal. Very elevated ferritin, so does not require iron. Will give epo at dialysis tomorrow, increasing the dose to 12,000 units. - Hyperphosphatemia: Please increase sevelamer to 1600mg (2 tablets) with meals. Ruby Villareal MD Nephrology Pager: [phone] * Renu Gil, FULFILLMENT SPECIALIST - 04/25/2024 6:44 AM EDT Follow Up Diabetes Consult Patient Interview Spent time today reviewing patient's glucose levels, insulin use and chart notes. Patient in the OR Objective Temp: [36.4 ??C (97.5 ??F)-36.9 ??C (98.4 ??F)] Heart Rate: [58-61] Resp: [11-18] BP: (133-167)/(69-92) SpO2: [92 %-99 %] Heart Rate from SpO2: [58 bpm-78 bpm] Current Regimen from previous note 1. Increase Lantus to 26 units qd 2. Lispro custom correction scale for BG>150 q 4 hrs CORRECTION BOLUS [1-6 Units] Custom Sliding Scale (BG in mg/dL): Correction factor 30 (1 unit of insulin is expected to drop theglucose 30 mg/dL) BG 150 - 180 Give 1 units BG 181 - 210 Give 2 units BG 211 - 240 Give 3 units BG 241 - 270 Give 4 units BG 271 - 300 Give 5 units BG greater than 300, give 6 units and recheck BG in 2 hours. If recheck BG remains GREATER THAN 240, GIVE 3 units & call for new insulin orders. If recheck BG is less than 240 after two hours, give no insulin and resume prior schedule. DO NOT hold if NPO, unless specifically directed to do so by written order. Per Blood Glucose Monitoring Policy, re-check a BG of > 240 mg/dL in 2 hours. 3. Meal-associated Lispro 1unit: 8 gm carb ratio for each meal) 4. Diet carb control level 2 Recent Glucose Levels Recent Labs 04/25/24 1136 04/25/24 0756 04/25/24 0419 04/25/24 0008 04/24/24 2003 04/24/24 1712 04/24/24 1531 04/24/24 1158 04/24/24 0736 04/24/24 0404 04/24/24 0100 04/23/24 2043 POCGLU 154 144 204* 237* 157 102 123 186 200* 159 234* 244* ASSESSMENT Patient is a 58 y.o. 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 Diabetes suboptimally controlled and currently complicated by infection, surgery. Currently with variability of blood glucose levels while hospitalized requiring adjustment of insulin regimen and DM medications. Baseline still slightly elevated, changed CF target to 140 PLAN 1. Increase Lantus to 26 units qd 2. Lispro custom correction scale for BG>140 q 4 hrs CORRECTION BOLUS [1-6 Units] Custom Sliding Scale (BG in mg/dL): Correction factor 30 (1 unit of insulin is expected to drop theglucose 30 mg/dL) BG 140 - 170 Give 1 units BG 171 - 200 Give 2 units BG 201 - 230 Give 3 units BG 231 - 260 Give 4 units BG 261 - 290 Give 5 units BG greater than 290, give 6 units and recheck BG in 2 hours. If recheck BG remains GREATER THAN 240, GIVE 3 units (no more than two times) & call for new insulin orders. If recheck BG is less than 240 after two hours, give no insulin and resume prior schedule. DO NOT hold if NPO, unless specifically directed to do so by written order. Per Blood Glucose Monitoring Policy, re-check a BG of > 240 mg/dL in 2 hours. 3. Meal-associated Lispro 1unit: 8 gm carb ratio for each meal) 4. Diet carb control level 2 Renu Gil APRN [facility] [place] Endocrinology Diabetes Management Pager [phone] * Munira Jorge MD - 04/25/2024 5:56 AM EDT Vascular Surgery Progress Note Patient ID Gerson Bruner is a 58 y.o. male with a history of longstanding insulin- dependent T2DM and ESRD on HD (MWF), TIA (2018, thought to be secondary to small vessel disease), well known to the Vascular Surgery Service s/p 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 ([place]) and right SFA/PT angioplasty 04/11/24. His BKA has been healing well. Presented to the ED this evening after visit to [facility] where he was found to be febrile with interval worsening of a arge eschar on his right heel. Patient and report that he is offloading it continuously, washing it daily and painting with Betadine. Endorses feelingflushed with chills and experiencing increasing pain the the RLE heel related to the wound over thepast 2-3 days. Prior vascular history 02/20: Left BKA on 02/21/24 ([place]) 04/11: Right SFA angioplasty, Right SFA DCBA, Right PT angioplasty ([place]) Operations This Hospitalization none Active Hospital Problems Diagnosis Non healing left heel wound Resolved Hospital Problems No resolved problems to display. Active Non-Hospital Problems Diagnosis Hypertensive urgency Critical ischemia of lower extremity Acute hypoxic respiratory failure Surgical wound present Status post below knee amputation, left Diabetic foot ulcer Blister of second toe of right foot Postoperative anemia due to acute blood loss Non-healing open wound of heel TIA (transient ischemic attack) Right sided numbness CKD (chronic kidney disease) stage 5, GFR less than 15 ml/min Secondary hyperparathyroidism Hyperglycemia Pre-transplant evaluation for CKD (chronic kidney disease) Essential hypertension Proteinuria Anemia of chronic renal failure, stage 4 (severe) Essential hypertension with goal blood pressure less than 130/80 Diabetes mellitus Hyperlipidemia Herniation of lumbar intervertebral disc with radiculopathy Type II or unspecified type diabetes mellitus with neurological manifestations, uncontrolled(250.62) Leg cramps Cigarette smoker Unspecified hearing loss Scheduled Medications: insulin glargine (Lantus;Semglee) (100 unit/mL) subcutaneous injection 26 Units Subcutaneous Daily insulin lispro 1-6 Units Subcutaneous Q4H PAULIE insulin lispro 1-10 Units Subcutaneous TID dilTIAZem 30 mg Oral Q6H [facility] sodium chloride 0.9 % (flush) 5 mL Intravenous BID heparin (porcine) 5,000 Units Subcutaneous 2 times per day acetaminophen 975 mg Oral Q6H PAULIE aspirin EC 81 mg Oral Daily atorvastatin 40 mg Oral QPM pantoprazole EC 40 mg Oral Daily pregabalin 100 mg Oral BID sevelamer carbonate 800 mg Oral TID piperacillin-tazobactam 3.375 g Intravenous Q12H carvediloL 12.5 mg Oral BID 24 hour events/Subjective - Elevated BS at MN 237 - Underwent HD on Tuesday 04/24. Patient's routine HD is M/W/. - OR was pushed back to today - Iron 27, Ferritin 1173, TIBC 139 - NPO since AL for OR today Objective BMI: Weight: 86.2 kg (190 lb) (04/20/24 1630) Intake/Output Summary (Last 24 hours) at 04/25/2024 0556 Last data filed at 04/24/2024 2131 Gross per 24 hour Intake 590 ml Output 5654 ml Net -5064 ml Temp: [36.4 ??C (97.5 ??F)-37.1 ??C (98.7 ??F)] Heart Rate: [56-84] Resp: [16-18] BP: (126-164)/(67-95) SpO2: [93 %-99 %] Heart Rate from SpO2: [57 bpm-72 bpm] Physical Exam: General: NAD, resting comfortably HEENT: normocephalic, atraumatic CVS: regular rate Pulm: breathing comfortably on 3L NC Abd: soft, non tender, non distended Ext: LLE: Well healed BKA site, no erythema or drainage. No change in exam since 04/24/24. RLE: s/p Guillotine amputation, no erythema of leg, end of stump appears healthy. No purulent drainage was seen. No active bleeding. Bones and muscle are exposed and look healthy. No sign of infection or cyanosis seen on the wound. Neuro: No focal deficits Labs Last 3 wbc, hgb, hct plt Recent Labs 04/24/24 0521 04/23/24 0422 04/22/24 0436 WBC 9.8* 9.9* 15.0* HGB 9.1* 9.1* 8.5* HCT 30.1* 30.7* 28.6* PLATELET 381* 346 328 Last 3 Lytes Recent Labs 04/24/24 0521 04/23/24 0422 04/22/24 0436 NA 139 137 138 K 5.5* 4.7 5.3* CL 99 97* 99 CO2 26 28 22 BUN 56* 39* 39* CREATININE 7.36* 5.67* 6.97* Last Ca, Mg, Phos Recent Labs 04/24/24520 CALCIUM 9.0 PHOS 6.8* MAGNESIUM 0.93 Microbiology Culture from amputated Right Heel; Drainage : Gram Positive Cocci New Studies CXR: Known wound at the heel of the right foot. No discrete evidence of osteomyelitis within the limitation of radiography. Ankle Xray: Known wound at the heel of the right foot. No discrete evidence of osteomyelitis within the limitation of radiography. MELLY - legs 02/18/24 Right Pressure (mm Hg) Waveform TBI Brachial Artery 190 Dorsalis Pedis (Ankle) Artery >240 [place]-Biphasic Posterior Tibial (Ankle) Artery >240 Monophasic Great Toe 110 0.58 Left Pressure (mm Hg) MELLY Waveform TBI Brachial Artery AVF Dorsalis Pedis (Ankle) Artery >240 Monophasic Posterior Tibial (Ankle) Artery 95 0.50 Monophasic Great Toe 85 0.45 Interpretation: RIGHT: Mild lower extremity arterial occlusive disease. Significant progression when compared to the previous exam. LEFT: Moderate lower extremity arterial occlusive disease. Significant progression when compared to the previous exam. Assessment & Plan Gerson Bruner is a 58 y.o. male with a history of longstanding insulin- dependent T2DM and ESRD on HD (MWF), TIA (2018, thought to be secondary to small vessel disease), well known to the Vascular Surgery Service s/p 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 ([place]) and right SFA/PT angioplasty 04/11/24. His BKA has been healing well. The patient presented with worsening of his right heel wound with elevated WBCand fevers. He went to the OR for debridement and ultimately underwent RLE guillotine BKA due to the severity and extent of the infection of his heel wound. Plan is to have him undergo secondary BKA closure. - IV Zosyn (04/20-TBD) - Diet: NPO - FU on HD plan with nephro - OR today for BKA closure - Appreciate nephro consult for iHD and endo for controlling BS - Continue aspirin, statin, Coreg, Dilt - Order BMP, CBC, Hemogram - Appreciate cards consult for afib - Tylenol (first line) and po Oxy prn for pain control - Home lantus, ISS - Daily labs, replete PRN - SQH for DVT ppx Munira Jorge MD Vascular Surgery 04/25/24 [id number] * Lyudmila John, PT - 04/24/2024 4:36 PM EDT 04/24/24 1201 Evaluation & Treatment Document Type contact Comment, Session Not Performed PT consult received. Pt went to the OR today. PT to f/u as post op orders are updated. Thank you. * Munira Jorge MD - 04/24/2024 3:43 PM EDT Vascular Surgery Progress Note Patient ID Gerson Bruner is a 58 y.o. male with a history of longstanding insulin- dependent T2DM and ESRD on HD (MWF), TIA (2018, thought to be secondary to small vessel disease), well known to the Vascular Surgery Service s/p 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 ([place]) and right SFA/PT angioplasty 04/11/24. His BKA has been healing well. Presented to the ED this evening after visit to [facility] where he was found to be febrile with interval worsening of a arge eschar on his right heel. Patient and report that he is offloading it continuously, washing it daily and painting with Betadine. Endorses feelingflushed with chills and experiencing increasing pain the the RLE heel related to the wound over thepast 2-3 days. Prior vascular history 02/20: Left BKA on 02/21/24 ([place]) 04/11: Right SFA angioplasty, Right SFA DCBA, Right PT angioplasty ([place]) Operations This Hospitalization none Active Hospital Problems Diagnosis Non healing left heel wound Resolved Hospital Problems No resolved problems to display. Active Non-Hospital Problems Diagnosis Hypertensive urgency Critical ischemia of lower extremity Acute hypoxic respiratory failure Surgical wound present Status post below knee amputation, left Diabetic foot ulcer Blister of second toe of right foot Postoperative anemia due to acute blood loss Non-healing open wound of heel TIA (transient ischemic attack) Right sided numbness CKD (chronic kidney disease) stage 5, GFR less than 15 ml/min Secondary hyperparathyroidism Hyperglycemia Pre-transplant evaluation for CKD (chronic kidney disease) Essential hypertension Proteinuria Anemia of chronic renal failure, stage 4 (severe) Essential hypertension with goal blood pressure less than 130/80 Diabetes mellitus Hyperlipidemia Herniation of lumbar intervertebral disc with radiculopathy Type II or unspecified type diabetes mellitus with neurological manifestations, uncontrolled(250.62) Leg cramps Cigarette smoker Unspecified hearing loss Scheduled Medications: insulin glargine (Lantus;Semglee) (100 unit/mL) subcutaneous injection 26 Units Subcutaneous Daily insulin lispro 1-6 Units Subcutaneous Q4H PAULIE insulin lispro 1-10 Units Subcutaneous TID WC dilTIAZem 30 mg Oral Q6H PAULIE sodium chloride 0.9 % (flush) 5 mL Intravenous BID heparin (porcine) 5,000 Units Subcutaneous 2 times per day acetaminophen 975 mg Oral Q6H PAULIE aspirin EC 81 mg Oral Daily atorvastatin 40 mg Oral QPM pantoprazole EC 40 mg Oral Daily pregabalin 100 mg Oral BID sevelamer carbonate 800 mg Oral TID WC piperacillin-tazobactam 3.375 g Intravenous Q12H carvediloL 12.5 mg Oral BID WC 24 hour events/Subjective - Elevated BS - Last HD on Wednesday which was stopped due to developing AF which resolved after and cards were consulted - Rt heel culture positive for GPC - Cr at 5.67, K 5.5 - WBC 9.9 Objective BMI: Weight: 86.2 kg (190 lb) (04/20/24 1630) Intake/Output Summary (Last 24 hours) at 04/24/2024 1543 Last data filed at 04/24/2024 1215 Gross per 24 hour Intake 425 ml Output 4080 ml Net -3655 ml Temp: [36.4 ??C (97.5 ??F)-37.1 ??C (98.7 ??F)] Heart Rate: [57-84] Resp: [16-19] BP: (126-162)/(67-95) SpO2: [83 %-100 %] Heart Rate from SpO2: [57 bpm-78 bpm] Physical Exam: General: NAD, resting comfortably HEENT: normocephalic, atraumatic CVS: regular rate Pulm: breathing comfortably on 3L NC Abd: soft, non tender, non distended Ext: LLE: Well healed BKA site, no erythema or drainage. No change in exam since 04/23 RLE: s/p Guillotine amputation, no erythema of leg, end of stump appears healthy. No purulent drainage was seen. No active bleeding. No change in exam as of 04/23/2024. Neuro: No focal deficits Labs Last 3 wbc, hgb, hct plt Recent Labs 04/24/2452004/23/24 0422 04/22/24 0436 WBC 9.8* 9.9* 15.0* HGB 9.1* 9.1* 8.5* HCT 30.1* 30.7* 28.6* PLATELET 381* 346 328 Last 3 Lytes Recent Labs 04/24/2452004/23/242 04/22/24 0436 NA 139 137 138 K 5.5* 4.7 5.3* CL 99 97* 99 CO2 26 28 22 BUN 56* 39* 39* CREATININE 7.36* 5.67* 6.97* Last Ca, Mg, Phos Recent Labs 04/24/24520 CALCIUM 9.0 PHOS 6.8* MAGNESIUM 0.93 Microbiology Culture from amputated Right Heel; Drainage : Gram Positive Cocci New Studies CXR: Known wound at the heel of the right foot. No discrete evidence of osteomyelitis within the limitation of radiography. Ankle Xray: Known wound at the heel of the right foot. No discrete evidence of osteomyelitis within the limitation of radiography. MELLY - legs 02/18/24 Right Pressure (mm Hg) Waveform TBI Brachial Artery 190 Dorsalis Pedis (Ankle) Artery >240 [place]-Biphasic Posterior Tibial (Ankle) Artery >240 Monophasic Great Toe 110 0.58 Left Pressure (mm Hg) MELLY Waveform TBI Brachial Artery AVF Dorsalis Pedis (Ankle) Artery >240 Monophasic Posterior Tibial (Ankle) Artery 95 0.50 Monophasic Great Toe 85 0.45 Interpretation: RIGHT: Mild lower extremity arterial occlusive disease. Significant progression when compared to the previous exam. LEFT: Moderate lower extremity arterial occlusive disease. Significant progression when compared to the previous exam. Assessment & Plan Gerson Bruner is a 58 y.o. male with a history of longstanding insulin- dependent T2DM and ESRD on HD (MWF), TIA (2019, thought to be secondary to small vessel disease), well known to the Vascular Surgery Service s/p 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 ([place]) and right SFA/PT angioplasty 04/11/24. His BKA has been healing well. The patient presented with worsening of his right heel wound with elevated WBCand fevers. He went to the OR for debridement and ultimately underwent RLE guillotine BKA due to the severity and extent of the infection of his heel wound. - IV Zosyn (04/20-TBD) - Diet: NPO - HD STAT before OR - OR today - Appreciate nephro consult for iHD and endo for controlling BS - Continue aspirin, statin, Coreg, Dilt - FU labs - Appreciate cards consult for afib - Tylenol (first line) and po Oxy prn for pain control - Home lantus, ISS - Daily labs, replete PRN - SQH for DVT ppx Munira Jorge MD Vascular Surgery 04/24/24 [id number] * Shanel Stanley OT - 04/24/2024 3:05 PM EDT 04/24/24 1504 Evaluation & Treatment Document Type contact Comment, Session Not Performed Attempted to see patient today. Patient was headed to OR and then dialysis in the afternoon. Will follow up for OT evaluation for tomorrow as available and appropriate. * Ruby Villareal MD - 04/24/2024 2:59 PM EDT NEPHROLOGY PROGRESS NOTE Patient seen and examined on dialysis. Clinical and laboratory data reviewed. Stable treatment. No issues with dialysis or access. Patient initially seen in his room. At that time, we were expecting him to have revision of his right BKA today and dialysis tomorrow per his usual schedule. I was contacted by the Vascular Surgery team later in the day, and they wanted him to get dialysis prior to surgery. We finally compromised that I could run him for 2 hours today, primarily to get K+ down (although considered normal for HD). We will plan to do a full treatment tomorrow to get him back on his out-patient schedule. A/P: - ESRD: Short HD today; full rx tomorrow. - Anemia: Hgb is below goal. I ordered iron studies to be drawn at dialysis. Depending on results we can give epo and/or iron at dialysis tomorrow. - Hyperphosphatemia: Please increase sevelamer to 1600mg with meals. Ruby Villareal MD Nephrology Pager: [phone] * Ed Coto - 04/23/2024 4:00 PM EDT Rn Transitional Care Encounter Note Patient Name: Gerson Bruner : [id number] MR#: [id number] Admit Date: 04/20/2024 4:43 PM Hospital Day 3 days Narrative:Visited to introduce and assess acceptance of Rn Transitional Care services. Assessment: Patient was awake, alert, oriented and in bed and welcoming to visit and watching TV. Patient coping positively with stresses of illness/hospitalization at this time. Patient says that heis hoping to get better and living with and has children and grandchildren. Patient says that he is facing health challenges and blessed with good family. Intervention and Outcome:Provided emotional, spiritual support and listening presence. Rn Transitional Care services accepted. Conversation to build trusting relationship. Provided pastoral presence. Provided spiritual guidance. Follow-up: yes Time in Direct Care:08 Mins Ed Coto 04/23/2024 * Dariana Albarado APRN - 04/23/2024 12:36 PM EDT PATIENT: Gerson Bruner : 1965 NEPHROLOGY PROGRESS NOTE Consulted for ESRD and hemodialysis management Interval History: - No acute events overnight. - Patient seen and evaluated in person at bedside. - Lab and metabolic parameters reviewed. - Without complaints. PE: General: Alert, comfortable. Cooperative with exam. HEENT: Sclera white. Mucous membranes moist. No lymphadenopathy. CV: S1 and S2. HR regular. Resp: Lungs clear with no crackles or wheezes. Respirations non labored. Abd: Soft. + BS. No bruit. Non tender. Ext: Warm. No cyanosis. No edema. Skin: Warm and dry to touch. No rash. Neuro: Alert and oriented x4, no focal deficit. Psych: Mood appropriate Assessment and Recommendations: Nephrology consulted for dialysis management. Feeling well today with no complaints. Denies pain, shortness of breath, N/V. 1) ESRD on hemodialysis- Patient seen and evaluated at bedside No apparent indication for urgent dialysis today. Plan next treatment on 04.25. Access - SHANNAN AVF, + bruit, no issues with cannulation. Please avoid NSAIDs, contrast, nephrotoxins and dose adjust renally toxic medications as able. 2) Anemia - Hgb 9.1, will administer EPO with next dialysis. Will check iron stores with next dialysis. 3) Bone and mineral - Calcium in range. Phosphorous mildly elevated, continue sevelamer 800mg, three times daily with meals. Will check PTH with next dialysis. 4) Acid-base - No metabolic acidosis appreciated 5) Electrolytes - Potassium and sodium in range. 6) Hemodynamics - No edema or shortness of breath. SBP in 130s. 7) Nutrition - Recommend Megan-meggan MEDICATIONS: [START ON 04/24/2024] insulin glargine (Lantus;Semglee) (100 unit/mL) subcutaneous injection 26 UnitsSubcutaneous Daily insulin lispro 1-6 Units Subcutaneous Q4H PAULIE dilTIAZem 30 mg Oral Q6H [facility] sodium chloride 0.9 % (flush) 5 mL Intravenous BID heparin (porcine) 5,000 Units Subcutaneous 2 times per day acetaminophen 975 mg Oral Q6H PAULIE aspirin EC 81 mg Oral Daily atorvastatin 40 mg Oral QPM pantoprazole EC 40 mg Oral Daily pregabalin 100 mg Oral BID sevelamer carbonate 800 mg Oral TID WC piperacillin-tazobactam 3.375 g Intravenous Q12H carvediloL 12.5 mg Oral BID WC Allergies Allergen Reactions Clindamycin Swelling. Gabapentin swelling Zoloft [Sertraline] Other reaction(s): Unsure PHYSICAL EXAM: Last value Temperature Temp: 36.9 ??C (98.4 ??F) Heart Rate Heart Rate: 61 Blood Pressure BP: 129/67 Respiratory Rate Resp: 20 SpO2 SpO2: 93 % STUDIES: Labs: CBC: Recent Labs 04/23/24 0422 04/22/24 0436 04/21/24 1624 WBC 9.9* 15.0* 19.8* HGB 9.1* 8.5* 9.4* PLATELET 346 328 348 Chemistry: Recent Labs 04/23/24 0422 04/22/24 0436 04/21/24 1624 NA 137 138 137 K 4.7 5.3* 4.6 CL 97* 99 97* CO2 28 22 21* BUN 39* 39* 32* CREATININE 5.67* 6.97* 5.70* GLUCOSE 321* 195 142 Recent Labs 04/23/24 0422 04/22/24 0436 04/21/24 1624 CALCIUM 9.1 8.4* 8.8 MAGNESIUM 0.88 0.86 0.82 PHOS 5.6* 7.9* 4.7* LFT's: Recent Labs 04/20/24 1709 03/14/24 0349 03/13/24 0633 03/13/24 0330 BILITOT <0.2* <0.2* <0.2* <0.2* BILIDIR -- -- -- 0.1 ALBUMIN 3.2 3.0* 3.3 3.1* ALKPHOS 210* 139* 181* 165* ALT 16 17 22 19 AST 16 14 15 12 Dariana Albarado APRN Section of Nephrology Pager [phone] Associated attestation - Gisele Mosqueda MD - 04/23/2024 4:53 PM EDT I have seen and examined Mr Bruner, reviewed the relevant clinical and laboratory data and images, and discussed the case with Dariana Albarado APRN. Her note accurately reflects our jointly formulatedassessment and recommendations for management. Please preserve non dominant arm - no IVs or needle sticks - and do not place PICC in this patient to preserve veins for future permanent hemodialysis access. This is an evidence and guideline-based recommendation. Access for blood draws can be provided by a non tunnelled internal jugular catheter catheter placedby Interventional Radiology. (order internal jugular TLC), or port. Labs on dialysis days can be drawn pre-dialysis via the catheter or fistula by the dialysis unit staff. Use phase of care dialysis when placing the order. If opiates are indicated, Morphine, codeine, oxycodone, accumulate and have toxic metabolites in CKD stage 5 and dialysis patients. Fentanyl, methadone, dilaudid, are preferable. Tramadol dose shouldbe reduced by 50% Thank you for involving us in their care. We will continue to follow. * Russell Cohen MD - 04/23/2024 8:56 AM EDT Vascular Surgery Progress Note Patient ID Gerson Bruner is a 58 y.o. male with a history of longstanding insulin- dependent T2DM and ESRD on HD ([facility]), TIA (2018, thought to be secondary to small vessel disease), well known to the Vascular Surgery Service s/p 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 ([place]) and right SFA/PT angioplasty 04/11/24. His BKA has been healing well. Presented to the ED this evening after visit to [facility] where he was found to be febrile with interval worsening of a arge eschar on his right heel. Patient and report that he is offloading it continuously, washing it daily and painting with Betadine. Endorses feelingflushed with chills and experiencing increasing pain the the RLE heel related to the wound over the past 2-3 days. Prior vascular history 02/20: Left BKA on 02/21/24 ([place]) 04/11: Right SFA angioplasty, Right SFA DCBA, Right PT angioplasty ([place]) Operations This Hospitalization none Active Hospital Problems Diagnosis Non healing left heel wound Resolved Hospital Problems No resolved problems to display. Active Non-Hospital Problems Diagnosis Hypertensive urgency Critical ischemia of lower extremity Acute hypoxic respiratory failure Surgical wound present Status post below knee amputation, left Diabetic foot ulcer Blister of second toe of right foot Postoperative anemia due to acute blood loss Non-healing open wound of heel TIA (transient ischemic attack) Right sided numbness CKD (chronic kidney disease) stage 5, GFR less than 15 ml/min Secondary hyperparathyroidism Hyperglycemia Pre-transplant evaluation for CKD (chronic kidney disease) Essential hypertension Proteinuria Anemia of chronic renal failure, stage 4 (severe) Essential hypertension with goal blood pressure less than 130/80 Diabetes mellitus Hyperlipidemia Herniation of lumbar intervertebral disc with radiculopathy Type II or unspecified type diabetes mellitus with neurological manifestations, uncontrolled(250.62) Leg cramps Cigarette smoker Unspecified hearing loss Scheduled Medications: insulin lispro 0-8 Units Subcutaneous TID WC insulin glargine (Lantus;Semglee) (100 unit/mL) subcutaneous injection 15 Units Subcutaneous Q24H insulin lispro 1-4 Units Subcutaneous Q4H PAULIE dilTIAZem 30 mg Oral Q6H PAULIE sodium chloride 0.9 % (flush) 5 mL Intravenous BID heparin (porcine) 5,000 Units Subcutaneous 2 times per day acetaminophen 975 mg Oral Q6H PAULIE aspirin EC 81 mg Oral Daily atorvastatin 40 mg Oral QPM pantoprazole EC 40 mg Oral Daily pregabalin 100 mg Oral BID sevelamer carbonate 800 mg Oral TID WC piperacillin-tazobactam 3.375 g Intravenous Q12H carvediloL 12.5 mg Oral BID 24 hour events/Subjective - Elevated FSGs - Refused NC when hypoxic - WBC 10 from 15 - Afib w/ RVR during HD, converted to NSR. Card consulted, david spaced out Objective BMI: Weight: 86.2 kg (190 lb) (04/20/24 1630) Intake/Output Summary (Last 24 hours) at 04/23/2024 0856 Last data filed at 04/23/2024 0400 Gross per 24 hour Intake 1060 ml Output 2186 ml Net -1126 ml Temp: [36.4 ??C (97.5 ??F)-36.8 ??C (98.2 ??F)] Heart Rate: [62-112] Resp: [16-20] BP: (117-135)/(56-69) SpO2: [83 %-95 %] Heart Rate from SpO2: [60 bpm-111 bpm] Physical Exam: General: NAD, resting comfortably HEENT: normocephalic, atraumatic CVS: regular rate Pulm: breathing comfortably on 3L NC Abd: soft, non tender, non distended Ext: LLE: Well healed BKA site, no erythema or drainage RLE: s/p Guillotine amputation, no erythema of leg, end of stump appears healthy Neuro: No focal deficits Labs Last 3 wbc, hgb, hct plt Recent Labs 04/23/24 0422 04/22/24 0436 04/21/24 1624 WBC 9.9* 15.0* 19.8* HGB 9.1* 8.5* 9.4* HCT 30.7* 28.6* 29.8* PLATELET 346 328 348 Last 3 Lytes Recent Labs 04/23/24 0422 04/22/24 0436 04/21/24 1624 NA 137 138 137 K 4.7 5.3* 4.6 CL 97* 99 97* CO2 28 22 21* BUN 39* 39* 32* CREATININE 5.67* 6.97* 5.70* Last Ca, Mg, Phos Recent Labs 04/23/24421 CALCIUM 9.1 PHOS 5.6* MAGNESIUM 0.88 Microbiology None, fup OR cultures New Studies CXR: Known wound at the heel of the right foot. No discrete evidence of osteomyelitis within the limitation of radiography. Ankle Xray: Known wound at the heel of the right foot. No discrete evidence of osteomyelitis within the limitation of radiography. MELLY - legs 02/18/24 Right Pressure (mm Hg) Waveform TBI Brachial Artery 190 Dorsalis Pedis (Ankle) Artery >240 [place]ingham-Biphasic Posterior Tibial (Ankle) Artery >240 Monophasic Great Toe 110 0.58 Left Pressure (mm Hg) MELLY Waveform TBI Brachial Artery AVF Dorsalis Pedis (Ankle) Artery >240 Monophasic Posterior Tibial (Ankle) Artery 95 0.50 Monophasic Great Toe 85 0.45 Interpretation: RIGHT: Mild lower extremity arterial occlusive disease. Significant progression when compared to the previous exam. LEFT: Moderate lower extremity arterial occlusive disease. Significant progression when compared to the previous exam. Assessment & Plan Gerson Bruner is a 58 y.o. male with a history of longstanding insulin- dependent T2DM and ESRD on HD ([facility]), TIA (2018, thought to be secondary to small vessel disease), well known to the Vascular Surgery Service s/p 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 ([place]) and right SFA/PT angioplasty 04/11/24. His BKA has been healing well. The patient presented with worsening of his right heel wound with elevated WBCand fevers. He went to the OR for debridement and ultimately underwent RLE guillotine BKA due to the severity and extent of the infection of his heel wound. - IV Zosyn (04/20-TBD) - Diet: Renal diet 2 GM NA; 60/60/75 CHO counting level 2 - Appreciate nephro consult for iHD - Continue aspirin, statin, Coreg, Dilt; d/c amlodipine - Appreciate cards consult for afib - Tylenol (first line) and po Oxy prn for pain control - Home lantus, ISS - Daily labs, replete PRN - SQH for DVT ppx - Will plan for formalization of amputation this week Russell Cohen MD Vascular Surgery 04/23/24 [id number] * Marti Garcia MD - 04/22/2024 11:10 AM EDT Vascular Surgery Progress Note Patient ID Gerson Bruner is a 58 y.o. male with a history of longstanding insulin- dependent T2DM and ESRD on HD ([facility]), TIA (2018, thought to be secondary to small vessel disease), well known to the Vascular Surgery Service s/p 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 ([facility]) and right SFA/PT angioplasty 04/11/24. His BKA has been healing well. Presented to the ED this evening after visit to [facility] where he was found to be febrile with interval worsening of a arge eschar on his right heel. Patient and report that he is offloading it continuously, washing it daily and painting with Betadine. Endorses feelingflushed with chills and experiencing increasing pain the the RLE heel related to the wound over thepast 2-3 days. Prior vascular history 02/20: Left BKA on 02/21/24 ([place]) 04/11: Right SFA angioplasty, Right SFA DCBA, Right PT angioplasty ([place]) Operations This Hospitalization none Active Hospital Problems Diagnosis Non healing left heel wound Resolved Hospital Problems No resolved problems to display. Active Non-Hospital Problems Diagnosis Hypertensive urgency Critical ischemia of lower extremity Acute hypoxic respiratory failure Surgical wound present Status post below knee amputation, left Diabetic foot ulcer Blister of second toe of right foot Postoperative anemia due to acute blood loss Non-healing open wound of heel TIA (transient ischemic attack) Right sided numbness CKD (chronic kidney disease) stage 5, GFR less than 15 ml/min Secondary hyperparathyroidism Hyperglycemia Pre-transplant evaluation for CKD (chronic kidney disease) Essential hypertension Proteinuria Anemia of chronic renal failure, stage 4 (severe) Essential hypertension with goal blood pressure less than 130/80 Diabetes mellitus Hyperlipidemia Herniation of lumbar intervertebral disc with radiculopathy Type II or unspecified type diabetes mellitus with neurological manifestations, uncontrolled(250.62) Leg cramps Cigarette smoker Unspecified hearing loss Scheduled Medications: sodium chloride 0.9 % (flush) 5 mL Intravenous BID heparin (porcine) 5,000 Units Subcutaneous 2 times per day acetaminophen 975 mg Oral Q6H PAULIE aspirin EC 81 mg Oral Daily atorvastatin 40 mg Oral QPM insulin lispro 1-4 Units Subcutaneous Q4H PAULIE pantoprazole EC 40 mg Oral Daily pregabalin 100 mg Oral BID sevelamer carbonate 800 mg Oral TID WC piperacillin-tazobactam 3.375 g Intravenous Q12H amLODIPine 10 mg Oral Daily carvediloL 12.5 mg Oral BID WC dilTIAZem CD 120 mg Oral Daily 24 hour events/Subjective - Taken to OR yesterday for foot debridement; given appearance of foot and extent of infection, ultimately underwent guillotine amputation - On 3L NC this AM - Cultures from OR foot wound growing gram positive cocci - Has been afebrile postoperatively Objective BMI: Weight: 86.2 kg (190 lb) (04/20/24 1630) Intake/Output Summary (Last 24 hours) at 04/22/2024 1110 Last data filed at 04/22/2024 0445 Gross per 24 hour Intake 660 ml Output 1228 ml Net -568 ml Temp: [36.1 ??C (97 ??F)-39.3 ??C (102.8 ??F)] Heart Rate: [67-87] Resp: [11-20] BP: (112-212)/(59-108) SpO2: [84 %-99 %] Heart Rate from SpO2: [60 bpm-86 bpm] Physical Exam: General: NAD, resting comfortably HEENT: normocephalic, atraumatic CVS: regular rate Pulm: breathing comfortably on 3L NC Abd: soft, non tender, non distended Ext: LLE: Well healed BKA site, no erythema or drainage RLE: s/p Guillotine amputation, no erythema of leg, end of stump appears healthy Neuro: No focal deficits Labs Last 3 wbc, hgb, hct plt Recent Labs 04/22/24 0436 04/21/24 1624 04/20/24 2332 WBC 15.0* 19.8* 17.1* HGB 8.5* 9.4* 8.9* HCT 28.6* 29.8* 28.8* PLATELET 328 348 340 Last 3 Lytes Recent Labs 04/22/24 0436 04/21/24 1624 04/20/24 2332 NA 138 137 132* K 5.3* 4.6 5.1* CL 99 97* 95* CO2 22 21* 23 BUN 39* 32* 42* CREATININE 6.97* 5.70* 7.05* Last Ca, Mg, Phos Recent Labs 04/22/24435 CALCIUM 8.4* PHOS 7.9* MAGNESIUM 0.86 Microbiology None, fup OR cultures New Studies CXR: Known wound at the heel of the right foot. No discrete evidence of osteomyelitis within the limitation of radiography. Ankle Xray: Known wound at the heel of the right foot. No discrete evidence of osteomyelitis within the limitation of radiography. MELLY - legs 02/18/24 Right Pressure (mm Hg) Waveform TBI Brachial Artery 190 Dorsalis Pedis (Ankle) Artery >240 [place]ingham-Biphasic Posterior Tibial (Ankle) Artery >240 Monophasic Great Toe 110 0.58 Left Pressure (mm Hg) MELLY Waveform TBI Brachial Artery AVF Dorsalis Pedis (Ankle) Artery >240 Monophasic Posterior Tibial (Ankle) Artery 95 0.50 Monophasic Great Toe 85 0.45 Interpretation: RIGHT: Mild lower extremity arterial occlusive disease. Significant progression when compared to the previous exam. LEFT: Moderate lower extremity arterial occlusive disease. Significant progression when compared to the previous exam. Assessment & Plan Gerson Bruner is a 58 y.o. male with a history of longstanding insulin- dependent T2DM and ESRD on HD ([facility]WF), TIA (2019, thought to be secondary to small vessel disease), well known to the Vascular Surgery Service s/p 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 ([facility]) and right SFA/PT angioplasty 04/11/24. His BKA has been healing well. The patient presented with worsening of his right heel wound with elevated WBCand fevers. He went to the OR for debridement and ultimately underwent RLE guillotine BKA due to the severity and extent of the infection of his heel wound. - IV Zosyn (04/20-TBD) - Diet: regular diet - HD today per nephrology - Continue aspirin, statin, Coreg, Dilt - Continue home anti-HTN: amlodipine - Tylenol (first line) and po Oxy prn for pain control - SSI, sensitive scale - up titrate as needed - Daily labs, replete PRN - SQH for DVT ppx - Will plan for formalization of amputation next week Marti Garcia MD Vascular Surgery 04/22/24 [id number] Associated attestation - Kristi Renae MD - 04/28/2024 9:40 AM EDT OR yesterday, Dr. Red noted extensive infection through base of foot and he discussed with family with decision to proceed with guillotine through ankle amputation. Pt admitted with sepsis with encephalopathy secondary to uncontrolled diabetic heel foot infection. ESRD on dialysis, working with nephrology re: dialysis in house. Drain infection over next few days with plan for formalization next week. Kristi Renae MD * Dariana Albarado, FULFILLMENT SPECIALIST - 04/22/2024 10:45 AM EDT PATIENT: Gerson Bruner : 1965 NEPHROLOGY PROGRESS NOTE Consulted for ESRD and hemodialysis management Interval History: - Had right BKA last evening. - Patient seen and evaluated in person at bedside. - Lab and metabolic parameters reviewed. - Without complaints. PE: General: Alert, comfortable. Cooperative with exam. HEENT: Sclera white. Mucous membranes moist. CV: S1 and S2. HR irregular. Resp: Lungs clear with no crackles or wheezes. Respirations non labored. Abd: Soft. + BS. No bruit. Non tender. Ext: Warm. No cyanosis. No edema. Skin: Warm and dry to touch. No rash. Dressing on right stump. Neuro: Alert and oriented x4, no focal deficit. Psych: Mood appropriate Assessment and Recommendations: Nephrology consulted for dialysis management. Feeling well today with no complaints. Denies pain, shortness of breath, N/V. 1) ESRD on hemodialysis- Patient seen and evaluated multiple times during dialysis for blood pressure management and instance of afib with heart rate around 110. Patient asymptomatic with SBP in 130s, no SOB or chest pain. EKG performed and attending made aware. Tolerating UF removal of 2.5L. Plan for next dialysis on Tuesday 04/24. Current prescription: 3 hours, Na 140, K per protocol, Bicarb 35, T37, BFR 450, DFR 1.5x BFR. F160 dialyzer, UF goal 1-3L as tolerated based on BP. Access - SHANNAN AVF, + bruit, no issues with cannulation. Please avoid NSAIDs, contrast, nephrotoxins and dose adjust renally toxic medications as able. 2) Anemia - Hgb 8.5, receive EPO 10,000u with dialysis. Will check iron stores with next dialysis. 3) Bone and mineral - Phosphorous mildly elevated, continue sevelamer 800mg with meals. Will check PTH with next dialysis. 4) Acid-base - No metabolic acidosis appreciated 5) Electrolytes - Potassium mildly elevated, expect to correct with dialysis. Sodium in range. 6) Hemodynamics - No edema or shortness of breath. SBP in 130s. 7) Nutrition - Recommend renal diet and Megan-meggan MEDICATIONS: sodium chloride 0.9 % (flush) 5 mL Intravenous BID heparin (porcine) 5,000 Units Subcutaneous 2 times per day acetaminophen 975 mg Oral Q6H PAULIE aspirin EC 81 mg Oral Daily atorvastatin 40 mg Oral QPM insulin lispro 1-4 Units Subcutaneous Q4H PAULIE pantoprazole EC 40 mg Oral Daily pregabalin 100 mg Oral BID sevelamer carbonate 800 mg Oral TID WC piperacillin-tazobactam 3.375 g Intravenous Q12H amLODIPine 10 mg Oral Daily carvediloL 12.5 mg Oral BID WC dilTIAZem CD 120 mg Oral Daily Allergies Allergen Reactions Clindamycin Swelling. Gabapentin swelling Zoloft [Sertraline] Other reaction(s): Unsure PHYSICAL EXAM: Last value Temperature Temp: 36.6 ??C (97.9 ??F) Heart Rate Heart Rate: 67 Blood Pressure BP: 132/70 Respiratory Rate Resp: 17 SpO2 SpO2: 94 % STUDIES: Labs: CBC: Recent Labs 04/22/2443504/21/24 16204/20/242331 WBC 15.0* 19.8* 17.1* HGB 8.5* 9.4* 8.9* PLATELET 328 348 340 Chemistry: Recent Labs 04/22/2443504/21/24 1624 04/20/242331 NA 138 137 132* K 5.3* 4.6 5.1* CL 99 97* 95* CO2 22 21* 23 BUN 39* 32* 42* CREATININE 6.97* 5.70* 7.05* GLUCOSE 195 142 185 Recent Labs 04/22/2443504/21/24 1624 04/20/24 2332 04/20/24 2217 CALCIUM 8.4* 8.8 8.7 8.5 MAGNESIUM 0.86 0.82 -- 0.83 PHOS 7.9* 4.7* -- 5.8* LFT's: Recent Labs 04/20/24 1709 03/14/24 0349 03/13/24 0633 03/13/24 0330 BILITOT <0.2* <0.2* <0.2* <0.2* BILIDIR -- -- -- 0.1 ALBUMIN 3.2 3.0* 3.3 3.1* ALKPHOS 210* 139* 181* 165* ALT 16 17 22 19 AST 16 14 15 12 Dariana Albarado APRN Section of Nephrology Pager [phone] Associated attestation - Gisele Mosqueda MD - 04/22/2024 4:17 PM EDT I have seen and examined Mr Bruner on hemodialysis in the acute dialysis unit, reviewed the relevantclinical and laboratory data and images and discussed the case with Melissa Morrow FENCE INSTALLER HELPER. Her Megan Guzman FENCE INSTALLER HELPER. Her note represents our jointly formulated assessment and recommendations for management Mr Bruner developed asymptomatic AF on dialysis as documented. Remained asymptomatic and hemodynamically stable throughout, and completed the treatment. Primary team and floor staff aware. Please preserve non dominant arm - no IVs or needle sticks - and do not place PICC in this patient to preserve veins for future permanent hemodialysis access. This is an evidence and guideline-based recommendation. Access for blood draws can be provided by a non tunnelled internal jugular catheter catheter placedby Interventional Radiology. (order internal jugular TLC), or port. Labs on dialysis days can be drawn pre-dialysis via the catheter or fistula by the dialysis unit staff. Use phase of care dialysis when placing the order. If opiates are indicated, Morphine, codeine, oxycodone, accumulate and have toxic metabolites in CKD stage 5 and dialysis patients. Fentanyl, methadone, dilaudid, are preferable. Tramadol dose shouldbe reduced by 50% Thank you for involving us in their care. We will continue to follow. * Elle Finn RN - 04/21/2024 10:40 PM EDT Patient arrived from PACU at 2022. Drowsy upon arrival to floor. Opened eyes to voice. Disoriented to time, month and place ~was easily reoriented. Reports NO pain. Endorses tingling on both hands related to neuropathy. Sp02 >90s on 2L/NC. RLE dressing remains clean, dry and intact. and mother at bedside. This RN re-oriented patient to room, to staff and to use of call mitchell system. * Maritza Jimenez DO - 04/21/2024 10:00 PM EDT Vascular Surgery Post Op Check Gerson Bruner is a 58 y.o. male status post a RIGHT guillotine through-ankle amputation with Saphenous nerve block/mid thigh and sciatic block S: Reports no R leg pain. Reports no fevers, chills, nausea, vomiting, chest pain, or shortness of breath. Offers no complaints O: Temp: [36.1 ??C (97 ??F)-37 ??C (98.6 ??F)] Heart Rate: [67-71] Resp: [11-18] BP: (115-130)/(59-69) SpO2: [94 %-99 %] Heart Rate from SpO2: [60 bpm-72 bpm] I/O last 3 completed shifts: In: 260 [I.V.:260] Out: 1478 [Urine:250; Other:978; Blood:250] No intake/output data recorded. Physical Exam: GEN: Alert and appears stated age. Cooperative. In NAD. HEENT: Normocephalic and atraumatic. CV: Regular rate. Pulm: Breathing on room air. Abd: Soft, non-distended, non-tender to palpation. Skin: Color, texture, turgor normal. Neuro: Sensation and motor grossly intact. Extremities: Site is dressed with gauze and Kerlix, c/d/I. No evidence of hematoma or active drainage. Amputation site is soft. Last wbc, hgb, hct plt Recent Labs 04/21/24 1624 WBC 19.8* HGB 9.4* HCT 29.8* AP Gerson Bruner is a 58 y.o. male status post a through-ankle amputation who is currently in stable condition, pain is well controlled, and recovering well. - SBP goal <160 - Bedrest overnight - PT/OT ordered - Continue aspirin and statin - Tylenol, dilaudid PRN for pain control - SQH ppx - Resume diet - Floor status Maritza Jimenez, DO Vascular Surgery 04/21/2024 [id number] * Ruby Duran RN - 04/21/2024 7:01 PM EDT 0: Report from VIDYA Guido. 1999: Report called to VIDYA Almeida. VSS, pt alert and disoriented to place and situation. Denies pain or nausea. 2024: Pt transported back to [facility]. Spouse and mother at bedside. * Jules Osborne MD - 04/21/2024 5:00 PM EDT Vascular Surgery Progress Note Patient ID Gerson Bruner is a 58 y.o. male with a history of longstanding insulin- dependent T2DM and ESRD on HD ([facility]WF), TIA (2018, thought to be secondary to small vessel disease), well known to the Vascular Surgery Service s/p 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 ([place]) and right SFA/PT angioplasty 04/11/24. His BKA has been healing well. Presented to the ED this evening after visit to [facility] where he was found to be febrile with interval worsening of a arge eschar on his right heel. Patient and report that he is offloading it continuously, washing it daily and painting with Betadine. Endorses feelingflushed with chills and experiencing increasing pain the the RLE heel related to the wound over thepast 2-3 days. Prior vascular history 02/20: Left BKA on 02/21/24 ([place]) 04/11: Right SFA angioplasty, Right SFA DCBA, Right PT angioplasty ([place]) Operations This Hospitalization none Active Hospital Problems Diagnosis Non healing left heel wound Resolved Hospital Problems No resolved problems to display. Active Non-Hospital Problems Diagnosis Hypertensive urgency Critical ischemia of lower extremity Acute hypoxic respiratory failure Surgical wound present Status post below knee amputation, left Diabetic foot ulcer Blister of second toe of right foot Postoperative anemia due to acute blood loss Non-healing open wound of heel TIA (transient ischemic attack) Right sided numbness CKD (chronic kidney disease) stage 5, GFR less than 15 ml/min Secondary hyperparathyroidism Hyperglycemia Pre-transplant evaluation for CKD (chronic kidney disease) Essential hypertension Proteinuria Anemia of chronic renal failure, stage 4 (severe) Essential hypertension with goal blood pressure less than 130/80 Diabetes mellitus Hyperlipidemia Herniation of lumbar intervertebral disc with radiculopathy Type II or unspecified type diabetes mellitus with neurological manifestations, uncontrolled(250.62) Leg cramps Cigarette smoker Unspecified hearing loss Scheduled Medications: sodium chloride 0.9 % (flush) 5 mL Intravenous BID heparin (porcine) 5,000 Units Subcutaneous 2 times per day acetaminophen 975 mg Oral Q6H PAULIE aspirin EC 81 mg Oral Daily atorvastatin 40 mg Oral QPM insulin lispro 1-4 Units Subcutaneous Q4H [facility] pantoprazole EC 40 mg Oral Daily pregabalin 100 mg Oral BID sevelamer carbonate 800 mg Oral TID piperacillin-tazobactam 3.375 g Intravenous Q12H amLODIPine 10 mg Oral Daily carvediloL 12.5 mg Oral BID WC dilTIAZem CD 120 mg Oral Daily 24 hour events/Subjective - NAEO - Pain is well controlled - Reports no nausea, vomiting, chest pain or shortness of breath - Consults - Transfused Objective BMI: Weight: 86.2 kg (190 lb) (04/20/24 1630) Intake/Output Summary (Last 24 hours) at 04/21/2024 2337 Last data filed at 04/21/2024 1737 Gross per 24 hour Intake 250 ml Output 1478 ml Net -1228 ml Temp: [36.8 ??C (98.2 ??F)-39.3 ??C (102.8 ??F)] Heart Rate: [67-87] Resp: [11-20] BP: (118-212)/(59-108) SpO2: [81 %-99 %] Heart Rate from SpO2: [65 bpm-86 bpm] Physical Exam: General: NAD, resting comfortably HEENT: normocephalic, atraumatic CVS: regular rate (70s) Pulm: course breath sounds throughout Abd: soft, non tender, non distended Ext: LLE: Well healed BKA site, no erythema or drainage RLE: Black eschar over entire heel with surrounding erythema to skin extending toward ankle and mid-foot, monophasic DP signal and biphasic PT signal, foot wwp w/ cap refil ~2 seconds Neuro: No focal deficits Labs Last 3 wbc, hgb, hct plt Recent Labs 04/21/24 1624 04/20/24 2332 04/20/24 1939 WBC 19.8* 17.1* 17.0* HGB 9.4* 8.9* 8.3* HCT 29.8* 28.8* 25.9* PLATELET 348 340 347 Last 3 Lytes Recent Labs 04/21/24 1624 04/20/24 2332 04/20/24 2217 NA 137 132* 132* K 4.6 5.1* Not Perf CL 97* 95* 97* CO2 21* 23 21* BUN 32* 42* 41* CREATININE 5.70* 7.05* 6.58* Last Ca, Mg, Phos Recent Labs 04/21/24 1624 CALCIUM 8.8 PHOS 4.7* MAGNESIUM 0.82 Microbiology None, fup OR cultures New Studies CXR: Known wound at the heel of the right foot. No discrete evidence of osteomyelitis within the limitation of radiography. Ankle Xray: Known wound at the heel of the right foot. No discrete evidence of osteomyelitis within the limitation of radiography. MELLY - legs 02/18/24 Right Pressure (mm Hg) Waveform TBI Brachial Artery 190 Dorsalis Pedis (Ankle) Artery >240 [place]ingham-Biphasic Posterior Tibial (Ankle) Artery >240 Monophasic Great Toe 110 0.58 Left Pressure (mm Hg) MELLY Waveform TBI Brachial Artery AVF Dorsalis Pedis (Ankle) Artery >240 Monophasic Posterior Tibial (Ankle) Artery 95 0.50 Monophasic Great Toe 85 0.45 Interpretation: RIGHT: Mild lower extremity arterial occlusive disease. Significant progression when compared to the previous exam. LEFT: Moderate lower extremity arterial occlusive disease. Significant progression when compared to the previous exam. Assessment & Plan Gerson Bruner is a 58 y.o. male with a history of longstanding insulin- dependent T2DM and ESRD on HD ([facility]), TIA (2018, thought to be secondary to small vessel disease), well known to the Vascular Surgery Service s/p 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 ([place]) and right SFA/PT angioplasty 04/11/24. His BKA has been healing well. Presented to the ED this evening after visit to Wound Clinic where he was found to be febrile with interval worsening of a arge eschar on his right heel. Overall hemodynamically normal on RA, but concern for sepsis and need for source control. Febrile with Leukocytosis to 18 onadmission. Plan for OR RLE heel debridement. - IV Zosyn (04/20-TBD) - Diet: NPO diet (Give Meds) - MRI right heel - Order ABIs, TPCO2s - Prevelon boot - Follow up OR cultures - Consult nephrology, assess need for dialysis preop - Discontinue LR @ 100mL/hr - Continue aspirin, statin, Coreg, Dilt - Continue home anti-HTN: amlodipine - Tylenol (first line) and po Oxy prn for pain control - SSI, sensitive scale - up titrate as needed - Daily labs, replete PRN - SQH for DVT ppx Jules Osborne MD Vascular Surgery 04/21/24 [id number] * Renetta Kaur RN - 04/21/2024 12:02 AM EDT Pt AOx3 (disoriented to time) Pt on 2L NC, lethargic- MD aware Cardiac: Regular HR Pulm: Crackles on top, dim at bases Neurovasc: +1/+2 edema on right side, old left BKA Right heel eschar on chux at the bed Radial: +1 pulses, : Anuric Zosyn running secondary to NS Report given to VIDYA Antonio on L4WD * Renetta Kaur RN - 04/20/2024 10:56 PM EDT Pt very lethargic, pt needed to be sternal rub a few times overnight for pt come around, AOx3 (disoriented to time). was spoken to via phone. Potassium blood sample hemolyzed - MD paged by this RN MD at the bedside to assess pt, ordered BMP + venous ABG. documented in this encounter H&P Notes * Nikky Rao MD - 04/20/2024 7:10 PM EDT Vascular Surgery History & Physical History of Present Illness: Gerson Bruner is a 58 y.o. 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 His BKA has been healing well. Presented to the ED this evening after visit to Wound Clinic where he was found to be febrile with interval worsening of a arge eschar on his right heel. Patient and report that he is offloading it continuously, washing it daily and painting with Betadine. Endorses feeling flushed with chills and experiencing increasing pain the the RLE heel related to the wound over the past 2-3 days. Operations/Major Procedures: 02/20: Left BKA on 02/21/24 ([place]) 04/11: Right SFA angioplasty, Right SFA DCBA, Right PT angioplasty ([place]) Review of Systems: General: Endorses fevers, chills, sweats. Pulm: Denies shortness of breath, wheezing or cough. Card: Denies chest discomfort, palpitations, orthopnea, dyspnea with exersion or claudication. GI: Denies nausea, vomiting, constipation, diarrhea : Denies urinary urgency, frequency, dysuria, hematuria. Extremity: Pain in RLE, denies pain in LLE Past Medical History: Past Medical History: Diagnosis Date Anemia Chronic kidney disease CKD (chronic kidney disease) stage 4, GFR 15-29 ml/min Diabetes mellitus Herniation of lumbar intervertebral disc with radiculopathy 08/16/2015 L4-5 left Hypertension Past Surgical History: Past Surgical History: Procedure Laterality Date PRO AMPUTATION LOW LEG THRU TIB/FIB Left 02/21/2024 @AMPUTATION, BELOW-KNEE (WRVU 15.37) performed by Kristi Renae MD at [facility] MAIN OR PRO AMPUTATION LOW LEG, CIRCULAR Left 02/18/2024 @AMPUTATION, BELOW-KNEE, OPEN, GUILLOTINE (WRVU 9.79) performed by Kristi Renae MD at [facility] MAIN OR PRO ANASTOMOSIS, AV, ANY SITE Left 09/05/2018 AV FISTULA CREATION, DIRECT HEMODIALYSIS, ANY SITE, EG GABRIEL FISTULA UPPER EXTREMITY (WRVU 11.9) performed by Scout Reese MD at [facility] MAIN OR PRO COLONOSCOPY, REMV LESN, SNARE N/A 09/26/2019 COLONOSCOPY, POLYPECTOMY, REMOVAL LESION BY SNARE (WRVU 4.67) performed by Kaye Gibbs MD at [facility] ENDOSCOPY VS ARTERIOGRAM LOWER EXTREMITY VASCULAR SURGERY 04/11/2024 VS Arteriogram Lower Extremity Vascular Surgery 04/11/2024 Kristi Renae MD [facility] INTERVENTIONL RAD Social History: Social History Socioeconomic History Marital status: Spouse name: Not on file Number of children: Not on file Years of education: Not on file Highest education level: Not on file Occupational History Not on file Tobacco Use Smoking status: Every Day Current packs/day: 0.00 Types: Cigarettes Last attempt to quit: 12/26/2018 Years since quittin.3 Smokeless tobacco: Never Tobacco comments: smoking a few a day Vaping Use Vaping status: Never Used Substance and Sexual Activity Alcohol use: No Drug use: Yes Types: Marijuana Comment: multiple times daily Sexual activity: Not on file Other Topics Concern Not on file Social History Narrative Not on file Social Determinants of Health Financial Resource Strain: Not on file Food Insecurity: No Food Insecurity (03/14/2024) Hunger Vital Sign Worried About Running Out of Food in the Last Year: Never true Ran Out of Food in the Last Year: Never true Transportation Needs: No Transportation Needs (03/14/2024) PRAPARE - Transportation Lack of Transportation (Medical): No Lack of Transportation (Non-Medical): No Physical Activity: Not on file Intimate Partner Violence: Not At Risk (04/11/2024) IPV Inpatient Questions Prevent Contact with Others: no Feels Threatened by Someone: no Feels Unsafe at Home: no Physical Signs of Abuse Present: no Housing Stability: Low Risk (03/14/2024) Housing Stability Vital Sign Unable to Pay for Housing in the Last Year: No Number of Times Moved in the Last Year: 1 Homeless in the Last Year: No Family History Family History Problem Relation Age of Onset Diabetes Mother Cancer Father Diabetes Paternal Grandmother Heart Disease Paternal Grandfather Home Medications: No current facility-administered medications on file prior to encounter. Current Outpatient Medications on File Prior to Encounter Medication Sig Dispense Refill clopidogreL (Plavix) 75 mg tablet Take 1 tablet by mouth daily. 30 tablet 3 acetaminophen (Tylenol) 325 mg tablet Take 3 [...] by mouth daily. 30 capsule 0 insulin glargine-yfgn (Semglee) 100 unit/mL Solution Inject 15 Units subcutaneously daily. 1 mL 0 insulin lispro (HumaLOG) 100 unit/mL Solution [...] day with each meal 180 tablet 5 Allergies Allergies Allergen Reactions Clindamycin Swelling. Gabapentin swelling Zoloft [Sertraline] Other reaction(s): Unsure Physical Exam: Temp: [37.1 ??C (98.8 ??F)-39.2 ??C (102.6 ??F)] Heart Rate: [67-95] Resp: [17] BP: (134-164)/(63-98) SpO2: [91 %-98 %] Heart Rate from SpO2: [68 bpm-94 bpm] General: NAD, resting comfortably HEENT: normocephalic, atraumatic CVS: regular rate (70s) Pulm: course breath sounds throughout Abd: soft, non tender, non distended Ext: LLE: Well healed BKA site, no erythema or drainage RLE: Black eschar over entire heel with surrounding erythema to skin extending toward ankle and mid-foot, monophasic DP signal and biphasic PT signal, foot wwp w/ cap refil ~2 seconds Neuro: No focal deficits Labs: Last wbc, hgb, hct plt Recent Labs 04/20/24 1939 WBC 17.0* HGB 8.3* HCT 25.9* Last 3 Lytes Recent Labs 04/20/24 2217 04/20/24 1709 03/14/24 0349 NA 132* 133* 140 K Not Perf 5.5* 4.8 CL 97* 94* 100 CO2 21* 25 27 BUN 41* 41* 52* CREATININE 6.58* 6.27* 5.92* Last Ca, Mg, Phos Recent Labs 04/20/24 2217 CALCIUM 8.5 PHOS 5.8* MAGNESIUM 0.83 Last 3 Coags No results for input(s): PT, INR, PTT in the last 168 hours. Pertinent Radiographic/Diagnostic Results: Results for orders placed or performed during the hospital encounter of 04/20/24 XR Chest One View (Exam End: 04/20/2024 5:44 PM) Result Value WORKSTATION ID [id number] Impression Borderline size of the heart. Mild pulmonary vascular congestion without overt edema. No effusion. Thank you for letting us participate in the care of this patient. If you are a health care provider and have any questions regarding this report, please contact the number below. For patients who have questions please contact the health career development facilitator that requested your imaging first. Foot Min 3 views Right (Generic) (Exam End: 04/20/2024 5:44 PM) Result Value WORKSTATION ID [id number] Impression Known wound at the heel of the right foot. No discrete evidence of osteomyelitis within the limitation of radiography. Thank you for letting us participate in the care of this patient. If you are a health care provider and have any questions regarding this report, please contact the number below. For patients who have questions please contact the health career development facilitator that requested your imaging first. Ankle Min 3 views Right (Generic) (Exam End: 04/20/2024 5:44 PM) Result Value WORKSTATION ID [id number] Impression Known wound at the heel of the right foot. No discrete evidence of osteomyelitis within the limitation of radiography. Thank you for letting us participate in the care of this patient. If you are a health care provider and have any questions regarding this report, please contact the number below. For patients who have questions please contact the health career development facilitator that requested your imaging first. Vascular Labs: MELLY - legs 02/18/24 Right Pressure (mm Hg) Waveform TBI Brachial Artery 190 Dorsalis Pedis (Ankle) Artery >240 [place]-Biphasic Posterior Tibial (Ankle) Artery >240 Monophasic Great Toe 110 0.58 Left Pressure (mm Hg) MELLY Waveform TBI Brachial Artery AVF Dorsalis Pedis (Ankle) Artery >240 Monophasic Posterior Tibial (Ankle) Artery 95 0.50 Monophasic Great Toe 85 0.45 Interpretation: RIGHT: Mild lower extremity arterial occlusive disease. Significant progression when compared to the previous exam. LEFT: Moderate lower extremity arterial occlusive disease. Significant progression when compared to the previous exam. Assessment/Recommendations: Gerson Bruner is a 58 y.o. male PMH longstanding insulin-dependent T2DM and ESRD on HD ([facility]), TIA (2018, thought to be secondary to small vessel disease), well known to the Vascular Surgery Service s/p 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 ([place]) and right SFA/PT angioplasty 04/11/24. His BKA has been healing well. Presented to the ED this evening after visit to Wound Clinic where he was found to be febrile with interval worsening of a arge eschar on his right heel. Overall hemodynamically normal on RA. Febrile on arrival to 102F, appears diaphoretic and flushed. Leukocytosis to 18. Admit to Vascular Surgery for close monitoring. Marked and consented for RLE heel debridement. - Admit to Vascular Surgery Service, Dr. Renae attending - IV Zosyn (04/20-TBD) - Diet: NPO diet (Give Meds) - LR @ 100mL/hr - Continue aspirin, statin, Coreg, Dilt - Continue home anti-HTN: amlodipine - Tylenol and po Oxy prn for pain control - SSI, sensitive scale - up titrate as needed - Daily labs, replete PRN - SQH for DVT ppx Nikky Rao MD Vascular Surgery Pager: [phone] documented in this encounter Nursing Notes * Lata Zepeda RN - 04/21/2024 6:48 PM EDT 1831: Pt. Arrived from OR to PA04. Monitors on, alarms active and audible. documented in this encounter ED Notes * Gianluca Rossi MD - 04/20/2024 5:01 PM EDT Images from the original note were not included. ED Resident Note HPI: Gerson Bruner is a 58 y.o. male with past medical history seen for type 2 diabetes with poor control, chronic cigarette use, CKD on dialysis Wednesday, hypertension, prior TIA, prior diabetic ulcer on left lower extremity status post resection, chronic right heel wound who presents to the Emergency Department with 2 to 3 days of worsening pain in his foot and concern for infection from wound clinic today. History is obtained from the patient's as well as himself. Patient states that he has had worsening pain in his right foot for about 3 days, patient's states that hehas had chills at home, has also been diaphoretic as well at home. She notes also that approximately 2 to 3 days ago, his foot began to smell worse than usual. Patient was at wound clinic today, theynoted that they were concerned for infection as well and he was sent to the ED for evaluation. ROS as per HPI Vitals: ED Triage Vitals [04/20/24 1630] BP: 156/78 Heart Rate: 82 Resp: 17 Temp: 37.6 ??C (99.7 ??F) Temp src: Oral SpO2: 94 % O2 Device: RA O2 Flow Rate (L/min): n/a Physical Exam Constitutional: General: He is not in acute distress. Cardiovascular: Rate and Rhythm: Normal rate. Pulmonary: Effort: Pulmonary effort is normal. No respiratory distress. Abdominal: General: Abdomen is flat. Palpations: Abdomen is soft. Musculoskeletal: Comments: Normal range of motion for himself at the ankle, no tenderness to palpation of the foot, tenderness to palpation of the heel. Skin: Comments: Black skin overlying the heel with chronic appearing wound that overlies entirety of heel, please see attached media Neurological: Mental Status: He is alert. Comments: Sensation intact in the right lower extremity distal to the wound ED Course: I have reviewed labs and imaging, images and available reports, and they are significant for: EKG with concern for some mild peaking of T waves ED Course as of 04/20/242001 [facility] Apr 20, 2024 1818 WBC(!): 18.4 1818 Potassium(!): 5.5 XR Chest One View Final Result Borderline size of the heart. Mild pulmonary vascular congestion without overt edema. No effusion. Thank you for letting us participate in the care of this patient. If you are a health care provider and have any questions regarding this report, please contact the number below. For patients who have questions please contact the health career development facilitator that requested your imaging first. Foot Min 3 views Right (Generic) Final Result Known wound at the heel of the right foot. No discrete evidence of osteomyelitis within the limitation of radiography. Thank you for letting us participate in the care of this patient. If you are a health care provider and have any questions regarding this report, please contact the number below. For patients who have questions please contact the health career development facilitator that requested your imaging first. Ankle Min 3 views Right (Generic) Final Result Known wound at the heel of the right foot. No discrete evidence of osteomyelitis within the limitation of radiography. Thank you for letting us participate in the care of this patient. If you are a health care provider and have any questions regarding this report, please contact the number below. For patients who have questions please contact the health career development facilitator that requested your imaging first. Patient has exception to receiving full IV Fluid Bolus for management of Sepsis. Reason Fluids / Bolus not indicated: No Fluid Bolus due to Kidney Failure Procedures Assessment and Plan: 58 y.o. male with past medical history seen for type 2 diabetes with poor control, chronic cigarette use, CKD on dialysis Wednesday, hypertension, prior TIA, prior diabetic ulcer on left lower extremity status post resection, chronic right heel wound who presents to the Emergency Depar tment with 2 to 3 days of worsening pain in his foot and concern for infection from wound clinic today On arrival, the patient is in no acute distress, however he is febrile to 38.9, he is hypoxic to 87on room air with a good pleth on his pulse oximetry monitor. Placed on supplemental oxygen, sepsis order set initiated, given Zosyn, will pull blood cultures. X-rays of the foot and ankle as well as a chest x-ray ordered with concern for pneumonia, as well as osteomyelitis. He given his fevers, increasing pain, I have significant concern local infection as well as sepsis. Consult with vascular surgery service, leukocytosis to 18.4, K5.5, his EKG does not appear to have significantly peaked T waves but will plan for shifting with D10 and insulin as well as Lasix as hisblood pressure is within normal limits. Vascular surgery will come see the patient. Patient admitted to vascular surgery service. The visit findings, diagnosis, and care plan were discussed with the patient. Gianluca Rossi MD Resident 04/20/242002 Associated attestation - Sourav Bryson MD - 04/20/2024 9:53 PM EDT ED ATTENDING ATTESTATION NOTE The patient was seen in conjunction with the resident physician. I have independently performed thekey portions of the history and physical exam. I have reviewed the diagnostic studies including labs, imaging studies and EKGs. I have discussed the details of the case with the resident and agree with the assessment and plan as described in the resident note unless noted below or in my separate note. * Pau Burt APRN - 04/20/2024 4:28 PM EDT 58-year-old male with significant past medical history of diabetes, left BKA, and CKD on dialysis presents to the emergency department from wound clinic for concerns of sepsis. He had fever in clinictoday. Chronic wound on right heel. He is febrile at triage. Vitals otherwise WNL. EKG and labs ordered at triage. Pt escorted to room by Haofang Online Information TechnologyPau Hillman APRN 04/20/24 1646 documented in this encounter Miscellaneous Notes * Plan of Care - Sofy Ross RN - 04/28/2024 7:31 PM EDT OUTCOME EVALUATION NOTE: OUTCOME SUMMARY: Xander went to dialysis this morning and almost 3L taken off. Xander's VSS and pain under good control since the pain pump was shut off at about 1130 and removed at 1430. Xander frustrated late this afternoonas he wanted to go home. Gym Teacher paged team twice and the Legal Services Professional came to speak with patient. Xander wasvery frustrated as the thought he was going to go home after the pain pump was out. He decided that he wanted to go home AMA. Legal Services Professional was getting the form and video games storywriter spoke with patient and spouse called his daughter. Xander ultimately decided to stay as he would not get pain medications if he left AMA. Xander is feeling very out of control of all the things in his life and missed his anniversary yesterday and the fourth of April. He was teary and feels that he is going crazy in the hospital as he enjoys being outside and in the shields. Gym Teacher spoke with the team and they want to assure that his pain is under better control without the pump and that he can work with PT tomorrow and demonstrate his transfers. Xander does not have a slide board in his room and has been transferring, but it has not been very safe. Xander was able to verbalize understanding of this, but is hopeful that he will be able to discharge home tomorrow. Gym Teacher was clear with Xander and spouse that discharge is dependent on good pain control and safe transfers. Xander apologetic about his outburst as, I am not a bad elena, but people must hate me for acting like this. Gym Teacher let Xander know that staff understand how difficult this hasall been, but he just needs to try to calm down and staff will work with him if he works with us. PLAN MOVING FORWARD: -Pain contirol -Encourage patient to weight shift -BG every 4 hours -Work with PT in the morning INDIVIDUALIZED FALL PREVENTION INTERVENTIONS: Patient-specific fall risk factors per assessment: [current deficits]: pain, unfamiliar environment, new RBKA and old LBKA Assistance [level of assistance required for transfers and ambulation]: 1 assist to transfer to chair/wheelchair Supervision [direct monitoring required during toileting and ADLs]: hands on Surveillance [continuous indirect monitoring]: Masimo, telemetry, purposeful rounding Patient-specific fall prevention interventions for sensory deficits provided, if applicable: [X] N/A CARE PLAN GOAL OUTCOME EVALUATION: Ongoing Problem: Adult Inpatient Plan of Care Goal: Plan of Care Review Outcome: Ongoing (Interventions Implemented as Appropriate) Goal: Patient-Specific Goal (Individualized) Outcome: Ongoing (Interventions Implemented as Appropriate) Goal: Absence of Hospital-Acquired Illness or Injury Outcome: Ongoing (Interventions Implemented as Appropriate) Goal: Optimal Comfort and Wellbeing Outcome: Ongoing (Interventions Implemented as Appropriate) Goal: Readiness for Transition of Care Outcome: Ongoing (Interventions Implemented as Appropriate) Problem: Fall Injury Risk Goal: Absence of Fall and Fall-Related Injury Outcome: Ongoing (Interventions Implemented as Appropriate) Problem: Adjustment to Amputation Goal: Optimal Adjustment to Amputation Outcome: Ongoing (Interventions Implemented as Appropriate) Problem: BADL (Basic Activities of Daily Living) Impairment (Lower Extremity Amputation) Goal: Optimal Safe BADL Performance Outcome: Ongoing (Interventions Implemented as Appropriate) Problem: IADL (Instrumental Activities of Daily Living) Impairment (Lower Extremity Amputation) Goal: Optimal Safe IADL Performance Outcome: Ongoing (Interventions Implemented as Appropriate) Problem: Lower Limb Care (Lower Extremity Amputation) Goal: Effective Lower Limb Care Outcome: Ongoing (Interventions Implemented as Appropriate) Problem: Mobility Impairment (Lower Extremity Amputation) Goal: Optimal Mobility [place] and Safety Outcome: Ongoing (Interventions Implemented as Appropriate) Problem: Pain and Hypersensitivity (Lower Extremity Amputation) Goal: Acceptable Pain/Hypersensitivity Control Outcome: Ongoing (Interventions Implemented as Appropriate) Problem: Prosthetic Use and Management (Lower Extremity Amputation) Goal: Effective Prosthesis Use and Management Outcome: Ongoing (Interventions Implemented as Appropriate) Problem: Confusion Acute Goal: Optimal Cognitive Function Outcome: Ongoing (Interventions Implemented as Appropriate) * Care Management - Mariam Dean RN - 04/28/2024 2:32 PM EDT OFFICE OF CARE MANAGEMENT PROGRESS NOTE LOS: Hospital Day 8 days Chart reviewed, care reviewed with primary team and at interdisciplinary rounds. Patient continues to meet inpatient level of care related to: Pain management Decision Maker: Self Functional status prior to admission: Independent (Manual wheelchair, off- loading boot) Home Environment: . . Accessibility Concerns: Lives in 2 story home where all needs are met on the first level. Current Functional Ability: Independent, Assistive Equipment *Manual wheelchair and off-loading boot DME used at home: wheelchair - manual, other (see comments) (Off-loading boot) DME Needed at Discharge: TBD Patient is insured through: Primary Insurance: MEDICARE Payor: MEDICARE / Plan: MEDICARE PART A & B / Product Type: *No Product type* / Secondary Insurance: N/A Last Physical Therapy Recommendation: acute rehabilitation facility with to be determined Last Occupational Therapy Recommendation: acute rehabilitation facility with to be determined Plan for discharge is: Pending Hospital Course and PT/OT Recommendations Outpatient Agency/Support Group Needs: Homecare agency, Hemodialysis Hemodialysis Needs: Resumption Referral Placed: HD Facility Notified of Discharge Plan Location: [facility] HD Chair Confirmed: 0 HD ChairDetails: MWF 0600 Home Health Services: Registered Nurse Agency Referrals: [facility]ulveda and [facility] Transportation: family or friend will provide *Spouse Melissa [phone] Barriers to discharge: Discharge planning *[facility] MWF 0600, and [facility] restart referrals opened 04/21 Plan going forward: Called and spoke with patient regarding PT/OT evaluation and recommendations for discharge. Patient is declining going to rehab both acute and SNF at this time. He stated that hiswife is his 24/7 caregiver, sister is ST[employer] DRILLER HELPER and mother willing to help manage things at home. Fantasma with be a TATA. Provider updated of the conversation and will address with patient when med ready for discharge. PT/OT to re-eval tomorrow. Care Management will continue to follow and assist with discharge planning and coordination of care as indicated. Anticipated Date of Discharge: 04/29/2024 Mariam Dean RN, BSN * Consult Note - Niharika Naqvi RN - 04/28/2024 12:11 PM EDT During VAS Purposeful Rounding, an assessment of your patient's venous access was performed fby theVascular Access Service. The following tasks were performed if needed and communicated to the bedside RN Choose all that apply: [] PIV(s) checked for patency if daily need for flush needs to be performed [] CVAD was checked for patency if daily flush needs to be performed [] IV tubing clamped or capped if needed [] Visual inspection of your patient's central line dressing integrity [x] Review of indications for vascular access [] A photo was taken of your patient's central line [x] Visual inspection of your patient's IV dressing integrity [] Other While rounding an intervention was needed and communicated to the bedside RN Choose all that apply: [] Nonocclusive IV dressing addressed [] Nonocclusive CVAD dressing (please identify type of line) [] Infusion site leaking [] IV not patent and removed [] IV not indicated [] IV placed [] IV restarted [] Implanted Port, PICC or ML dressing changed if needed (either PRN or weekly) [] Other * Plan of Care - Concetta Canchola RN - 04/28/2024 5:09 AM EDT Patient aox4, VSS, patient had mild complaints of pain overnight, received x1 prn dose of oral Dilaudid, pt requested to be allowed to sleep until 0600, Dressing remains in place to right leg with rescue nerve catheter, dressing CDI, pt able to void spontaneously without difficulty and have a bowelmovement overnight, patient appeared to sleep well, no acute signs of distress noted overnight Problem: Adult Inpatient Plan of Care Goal: Plan of Care Review Outcome: Ongoing (Interventions Implemented as Appropriate) Goal: Patient-Specific Goal (Individualized) Outcome: Ongoing (Interventions Implemented as Appropriate) Goal: Absence of Hospital-Acquired Illness or Injury Outcome: Ongoing (Interventions Implemented as Appropriate) Goal: Optimal Comfort and Wellbeing Outcome: Ongoing (Interventions Implemented as Appropriate) Goal: Readiness for Transition of Care Outcome: Ongoing (Interventions Implemented as Appropriate) Problem: Fall Injury Risk Goal: Absence of Fall and Fall-Related Injury Outcome: Ongoing (Interventions Implemented as Appropriate) Problem: Adjustment to Amputation Goal: Optimal Adjustment to Amputation Outcome: Ongoing (Interventions Implemented as Appropriate) Problem: BADL (Basic Activities of Daily Living) Impairment (Lower Extremity Amputation) Goal: Optimal Safe BADL Performance Outcome: Ongoing (Interventions Implemented as Appropriate) Problem: IADL (Instrumental Activities of Daily Living) Impairment (Lower Extremity Amputation) Goal: Optimal Safe IADL Performance Outcome: Ongoing (Interventions Implemented as Appropriate) Problem: Lower Limb Care (Lower Extremity Amputation) Goal: Effective Lower Limb Care Outcome: Ongoing (Interventions Implemented as Appropriate) Problem: Mobility Impairment (Lower Extremity Amputation) Goal: Optimal Mobility [place] and Safety Outcome: Ongoing (Interventions Implemented as Appropriate) Problem: Pain and Hypersensitivity (Lower Extremity Amputation) Goal: Acceptable Pain/Hypersensitivity Control Outcome: Ongoing (Interventions Implemented as Appropriate) Problem: Prosthetic Use and Management (Lower Extremity Amputation) Goal: Effective Prosthesis Use and Management Outcome: Ongoing (Interventions Implemented as Appropriate) Problem: Confusion Acute Goal: Optimal Cognitive Function Outcome: Ongoing (Interventions Implemented as Appropriate) * Plan of Care - Sofy Ross RN - 04/27/2024 7:59 PM EDT OUTCOME EVALUATION NOTE: OUTCOME SUMMARY: Xander is frustrated that the kitchen does not send him the food he wants as he is on a renal, low sodium and carb control diet. He does not seem to have a good understanding of the rationale for the diet and unwilling to learn currently. Xander wanted to leave AMA related to the diet, that he is unable to go outside and wants to be home with his spouse for his anniversary. Xander's VSS and pain under great control with the pain pump that the Acute Pain Service put on his leg. He has not required any narcotics today. Patient spouse did take patient off the floor this afternoon, despite education that we do not haveenough staff to take him. PLAN MOVING FORWARD: -Pain contirol -Encourage patient to weight shift -Continue to monitor O2 sat and educate patient on the need for O2 -BG every 4 hours -Bed alarm so patient does not transfer to chair alone. INDIVIDUALIZED FALL PREVENTION INTERVENTIONS: Patient-specific fall risk factors per assessment: [current deficits]: pain, unfamiliar environment, new RBKA and old LBKA Assistance [level of assistance required for transfers and ambulation]: 1 assist to transfer to chair/wheelchair Supervision [direct monitoring required during toileting and ADLs]: hands on Surveillance [continuous indirect monitoring]: Masimo, telemetry, purposeful rounding Patient-specific fall prevention interventions for sensory deficits provided, if applicable: [X] N/A CARE PLAN GOAL OUTCOME EVALUATION: Ongoing Problem: Adult Inpatient Plan of Care Goal: Plan of Care Review Outcome: Ongoing (Interventions Implemented as Appropriate) Goal: Patient-Specific Goal (Individualized) Outcome: Ongoing (Interventions Implemented as Appropriate) Goal: Absence of Hospital-Acquired Illness or Injury Outcome: Ongoing (Interventions Implemented as Appropriate) Goal: Optimal Comfort and Wellbeing Outcome: Ongoing (Interventions Implemented as Appropriate) Goal: Readiness for Transition of Care Outcome: Ongoing (Interventions Implemented as Appropriate) Problem: Fall Injury Risk Goal: Absence of Fall and Fall-Related Injury Outcome: Ongoing (Interventions Implemented as Appropriate) Problem: Adjustment to Amputation Goal: Optimal Adjustment to Amputation Outcome: Ongoing (Interventions Implemented as Appropriate) Problem: BADL (Basic Activities of Daily Living) Impairment (Lower Extremity Amputation) Goal: Optimal Safe BADL Performance Outcome: Ongoing (Interventions Implemented as Appropriate) Problem: IADL (Instrumental Activities of Daily Living) Impairment (Lower Extremity Amputation) Goal: Optimal Safe IADL Performance Outcome: Ongoing (Interventions Implemented as Appropriate) Problem: Lower Limb Care (Lower Extremity Amputation) Goal: Effective Lower Limb Care Outcome: Ongoing (Interventions Implemented as Appropriate) Problem: Mobility Impairment (Lower Extremity Amputation) Goal: Optimal Mobility [place] and Safety Outcome: Ongoing (Interventions Implemented as Appropriate) * Plan of Care - Izaiah Welsh MD - 04/27/2024 11:18 AM EDT Inpatient Diabetes Follow-up Note Date: 04/27/24 Patient is a 58 years old male with PMH significant for T2DM (Last A1C of 8.4%), ESRD on HD (), TIA (2018), 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 We are covering for Inpt DM team over the holiday (April 27) today. Review of BG over the past 24h showed hypoglycemia down to 57-70s often recently too tight BG control Latest Reference Range & Units 04/25/24 11:36 04/25/24 17:46 04/25/24 18:10 04/25/24 18:53 04/25/24 23:33 04/26/24 04:24 04/26/24 07:30 04/26/24 11:51 04/26/24 17:09 04/26/24 20:28 04/26/24 23: 03:59 04/27/24 06:44 POC Glucose 65 - 199 mg/dL 154 57 (L) 68 73 154 112 118 79 100 121 102 78 109 Range & Units 05/04/19 15:02 02/24/24 06:07 03/13/24 03:30 Hemoglobin A1C 4.3 - 5.6 % 12.4 (H) 8.4 (H) 25-OH Vit D Total 30 - 100 ng/mL 29 (L) TSH 0.27 - 4.20 mcIU/mL 1.09 PTH 15 - 65 pg/mL 180 (H) C-Peptide 0.8 - 5.2 ng/mL 2.5 Range & Units 04/23/24 04:22 04/24/24 05:21 04/25/24 09:23 04/26/24 04:58 04/27/24 05:47 Creatinine 0.80 - 1.50 mg/dL 5.67 (H) 7.36 (H) 6.89 (H) 8.00 (H) 6.62 (H) Estimated GFR >=60 mL/min/1.73 m?? 11 (L) 8 (L) 9 (L) 7 (L) 9 (L) (H): Data is abnormally high (L): Data is abnormally low ASSESSMENT Patient is a 58 y.o. years old male with PMH significant for T2DM (Last A1C of 8.4%), ESRD on HD (MWF), TIA (2018), s/p Left BKA on 02/21/24 and right SFA/PT angioplasty 04/11/24, who was admitted on 04/20/2024 currently being treated for RLE wound s/p R BKA.. Diabetes suboptimally controlled and currently complicated by infection, surgery. Currently with variability of blood glucose levels while hospitalized requiring adjustment of insulin regimen and DM medications. Due to hypoglycemia, we already changed CF target to 150 and we will need to change glargine to 20 units daily. Recommendations: -- Fasting BG below goal at 78 this morning. Agree with primary team to decrease Lantus to 20 unitsdaily. -- Continue ICR 1:8g for now but may need to relax to 1u:10g carb tid to avoid hypoglycemia during daytime -- To cont custom correction scale as ordered. Discussed with Dr. Welsh. Nina Vides PGY-4 [facility] Endocrine Fellow. I have been in the patient's care area and reviewed Dr. Nina Vides's above history and I agree with the details as written. The assessment and plan were formulated in discussion with me and Jonathangree with them as documented. Izaiah Welsh MD, PhD, FACP, FACE * Plan of Care - Elle Finn V RN - 04/27/2024 7:33 AM EDT OUTCOME EVALUATION NOTE: OUTCOME SUMMARY: Reported 5-8/10 pain on the RLE, fairly controlled with current pain regimen. With Ropivacaine via Ambit pump ~patient needed reminders to push the button. Received scheduled Tylenol, Lyrica, PRN Dilaudid PO/IV and PRN TIzanidine(see MAR). Right BKA dressing remains clean, dry and intact. Had a loose BM this shift. SBA for transfers using the commode. [id number]~ [id number], refused apple juice. Agreed to have pudding 0430~ APS supervisor communications and signals provider was paged and came to bedside to assess Ambit pump site. PLAN MOVING FORWARD: Pain management PT/OT OOB to chair during waking hours HD MWF Discharge planning INDIVIDUALIZED FALL PREVENTION INTERVENTIONS: Patient-specific fall risk factors per assessment: [current deficits]: narcotic pain med, bilateralBKA, unfamiliar environment Assistance [level of assistance required for transfers and ambulation]: SBA for transfers Supervision [direct monitoring required during toileting and ADLs]: arms reach Surveillance [continuous indirect monitoring]: bed alarm, purposeful rounding Patient-specific fall prevention interventions for sensory deficits provided, if applicable: YES. Light adjusted for tasks/safety CPG GOAL OUTCOME EVALUATION: Problem: Adult Inpatient Plan of Care Goal: Plan of Care Review Outcome: Ongoing (Interventions Implemented as Appropriate) Goal: Patient-Specific Goal (Individualized) Outcome: Ongoing (Interventions Implemented as Appropriate) Goal: Absence of Hospital-Acquired Illness or Injury Outcome: Ongoing (Interventions Implemented as Appropriate) Goal: Optimal Comfort and Wellbeing Outcome: Ongoing (Interventions Implemented as Appropriate) Goal: Readiness for Transition of Care Outcome: Ongoing (Interventions Implemented as Appropriate) Problem: Fall Injury Risk Goal: Absence of Fall and Fall-Related Injury Outcome: Ongoing (Interventions Implemented as Appropriate) Problem: Adjustment to Amputation Goal: Optimal Adjustment to Amputation Outcome: Ongoing (Interventions Implemented as Appropriate) Problem: BADL (Basic Activities of Daily Living) Impairment (Lower Extremity Amputation) Goal: Optimal Safe BADL Performance Outcome: Ongoing (Interventions Implemented as Appropriate) Problem: IADL (Instrumental Activities of Daily Living) Impairment (Lower Extremity Amputation) Goal: Optimal Safe IADL Performance Outcome: Ongoing (Interventions Implemented as Appropriate) Problem: Lower Limb Care (Lower Extremity Amputation) Goal: Effective Lower Limb Care Outcome: Ongoing (Interventions Implemented as Appropriate) Problem: Mobility Impairment (Lower Extremity Amputation) Goal: Optimal Mobility [place] and Safety Outcome: Ongoing (Interventions Implemented as Appropriate) Problem: Pain and Hypersensitivity (Lower Extremity Amputation) Goal: Acceptable Pain/Hypersensitivity Control Outcome: Ongoing (Interventions Implemented as Appropriate) Problem: Prosthetic Use and Management (Lower Extremity Amputation) Goal: Effective Prosthesis Use and Management Outcome: Ongoing (Interventions Implemented as Appropriate) Problem: Confusion Acute Goal: Optimal Cognitive Function Outcome: Ongoing (Interventions Implemented as Appropriate) * Plan of Care - Elise Herbert RN - 04/26/2024 6:30 PM EDT OUTCOME EVALUATION NOTE: OUTCOME SUMMARY: Pt remains A x O x 4, hard of hearing, SBP elevated in the 170's. Difficulty with pain control for most of shift, APS consulted, in to see patient this afternoon, taken to OR for nerve block, sciaticnerve block catheter in place, pain team up at bedside to set up AMBIT pump Pt returned to unit at ~ 1630 pain control currently satisfactory, pt reports pain is at a 1/10. PT worked with physical therapy this shift, HD completed this shift with 2L's off per HD nurse. Voiding small amounts of urine, 1 medium, loose dark brown BM this shift. Pt resting comfortably, at bedside. PLAN MOVING FORWARD: Dialysis Pain Control Glycemic control INDIVIDUALIZED FALL PREVENTION INTERVENTIONS: Patient-specific fall risk factors per assessment: [current deficits]: Bilateral BKA, generalized weakness, recent surgery, pain medications Assistance [level of assistance required for transfers and ambulation]: 1 assist OOB Supervision [direct monitoring required during toileting and ADLs]: Eyes on, hands on Surveillance [continuous indirect monitoring]: Masimo, hourly rounding Patient-specific fall prevention interventions for sensory deficits provided, if applicable: Yes Problem: Adult Inpatient Plan of Care Goal: Plan of Care Review Outcome: Ongoing (Interventions Implemented as Appropriate) Flowsheets (Taken 04/26/20241937) Plan of Care Reviewed With: patient Progress: improving Goal: Patient-Specific Goal (Individualized) Outcome: Ongoing (Interventions Implemented as Appropriate) Goal: Absence of Hospital-Acquired Illness or Injury Outcome: Ongoing (Interventions Implemented as Appropriate) Goal: Optimal Comfort and Wellbeing Outcome: Ongoing (Interventions Implemented as Appropriate) Goal: Readiness for Transition of Care Outcome: Ongoing (Interventions Implemented as Appropriate) Problem: Fall Injury Risk Goal: Absence of Fall and Fall-Related Injury Outcome: Ongoing (Interventions Implemented as Appropriate) Problem: Adjustment to Amputation Goal: Optimal Adjustment to Amputation Outcome: Ongoing (Interventions Implemented as Appropriate) Problem: BADL (Basic Activities of Daily Living) Impairment (Lower Extremity Amputation) Goal: Optimal Safe BADL Performance Outcome: Ongoing (Interventions Implemented as Appropriate) Problem: IADL (Instrumental Activities of Daily Living) Impairment (Lower Extremity Amputation) Goal: Optimal Safe IADL Performance Outcome: Ongoing (Interventions Implemented as Appropriate) Problem: Lower Limb Care (Lower Extremity Amputation) Goal: Effective Lower Limb Care Outcome: Ongoing (Interventions Implemented as Appropriate) Problem: Mobility Impairment (Lower Extremity Amputation) Goal: Optimal Mobility [place] and Safety Outcome: Ongoing (Interventions Implemented as Appropriate) Problem: Pain and Hypersensitivity (Lower Extremity Amputation) Goal: Acceptable Pain/Hypersensitivity Control Outcome: Ongoing (Interventions Implemented as Appropriate) Problem: Prosthetic Use and Management (Lower Extremity Amputation) Goal: Effective Prosthesis Use and Management Outcome: Ongoing (Interventions Implemented as Appropriate) Problem: Confusion Acute Goal: Optimal Cognitive Function Outcome: Ongoing (Interventions Implemented as Appropriate) * Consult Note - Ismael Menchaca MD - 04/26/2024 4:55 PM EDT Acute Pain Medicine Service Consultation Date of APMS Consultation: 04/26/2024 Gerson Bruner is being evaluated for the management of their postoperative pain. Pain is categorized as mixed pain. History of Present Illness: 58 y/o M s/p RLE BKA POD1. He had a single shot nerve block yesterday pre- operatively, which has since worn off. APS consulted today for difficulty managing his postoperative pain. Past Medical History: Past Medical History: Diagnosis Date Anemia Chronic kidney disease CKD (chronic kidney disease) stage 4, GFR 15-29 ml/min Diabetes mellitus Herniation of lumbar intervertebral disc with radiculopathy 08/16/2015 L4-5 left Hypertension Family History: Family History Problem Relation Age of Onset Diabetes Mother Cancer Father Diabetes Paternal Grandmother Heart Disease Paternal Grandfather Social History: Social History Socioeconomic History Marital status: Spouse name: Not on file Number of children: Not on file Years of education: Not on file Highest education level: Not on file Occupational History Not on file Tobacco Use Smoking status: Every Day Current packs/day: 0.00 Types: Cigarettes Last attempt to quit: 12/26/2018 Years since quittin.3 Smokeless tobacco: Never Tobacco comments: smoking a few a day Vaping Use Vaping status: Never Used Substance and Sexual Activity Alcohol use: No Drug use: Yes Types: Marijuana Comment: multiple times daily Sexual activity: Not on file Other Topics Concern Not on file Social History Narrative Not on file Social Determinants of Health Financial Resource Strain: Not on file Food Insecurity: No Food Insecurity (04/21/2024) Hunger Vital Sign Worried About Running Out of Food in the Last Year: Never true Ran Out of Food in the Last Year: Never true Transportation Needs: No Transportation Needs (04/21/2024) PRAPARE - Transportation Lack of Transportation (Medical): No Lack of Transportation (Non-Medical): No Physical Activity: Not on file Intimate Partner Violence: Not At Risk (04/11/2024) DH IPV Inpatient Questions Prevent Contact with Others: no Feels Threatened by Someone: no Feels Unsafe at Home: no Physical Signs of Abuse Present: no Housing Stability: Low Risk (04/21/2024) Housing Stability Vital Sign Unable to Pay for Housing in the Last Year: No Number of Times Moved in the Last Year: 1 Homeless in the Last Year: No Vital Signs: Last Set of Vitals BP 170/78 Pulse 79 Temp 37.1 ??C (98.8 ??F) (Oral) Resp 18 Wt 86.2 kg (190 lb) SpO2 95% BMI 28.06 kg/m?? Pain Scores: 6 Physical Exam: Affect: alert, appropriate Pain Behaviors: wincing, grimacing Labs: WBC/Hgb/Hct/Plts: 13.1* 8.9* 29.1* 429* (04/26 458) BUN/Cr/glu/ALT/AST/amyl/lip: 57/8.00/109/--/--/--/-- (04/26 458) Assessment: Acute post-operative pain with fully resolved single shot nerve block. Pt reports pain at the stumpsite, as well as distal to the (phantom) foot. Recommendations: - Continuous sciatic nerve block catheter in place with noted improvement (see procedure note) - Continue all other current PRN and scheduled meds. Plan discussed with primary team. APMS will continue to follow patient. Ismael Menchaca MD 04/26/2024 Acute Pain Medicine Service Pager: [phone] * Consult Note - Simón Ponce RN - 04/26/2024 2:57 PM EDT During VAS Purposeful Rounding, an assessment of your patient's venous access was performed fby theVascular Access Service. The following tasks were performed if needed and communicated to the bedside RN Choose all that apply: [x] PIV(s) checked for patency if daily need for flush needs to be performed [] CVAD was checked for patency if daily flush needs to be performed [x] IV tubing clamped or capped if needed [] Visual inspection of your patient's central line dressing integrity [x] Review of indications for vascular access [] A photo was taken of your patient's central line [x] Visual inspection of your patient's IV dressing integrity [] Other While rounding an intervention was needed and communicated to the bedside RN Choose all that apply: [] Nonocclusive IV dressing addressed [] Nonocclusive CVAD dressing (please identify type of line) [] Infusion site leaking [] IV not patent and removed [] IV not indicated [] IV placed [] IV restarted [] Implanted Port, PICC or ML dressing changed if needed (either PRN or weekly) [] Other * Care Management - Mariam Dean RN - 04/26/2024 11:32 AM EDT OFFICE OF CARE MANAGEMENT PROGRESS NOTE LOS: Hospital Day 6 days Chart reviewed, care reviewed with primary team and at interdisciplinary rounds. Patient continues to meet inpatient level of care related to: Pain management, PT/OT eval. Dressing down on 04/29. Decision Maker: Self Functional status prior to admission: Independent (Manual wheelchair, off- loading boot) Home Environment: . . Accessibility Concerns: Lives in 2 story home where all needs are met on the first level. Current Functional Ability: Independent, Assistive Equipment *Manual wheelchair and off-loading boot DME used at home: wheelchair - manual, other (see comments) (Off-loading boot) Patient is insured through: Primary Insurance: MEDICARE Payor: MEDICARE / Plan: MEDICARE PART A & B / Product Type: *No Product type* / Secondary Insurance: N/A Last Physical Therapy Recommendation: with Last Occupational Therapy Recommendation: with Plan for discharge is: Pending Hospital Course and PT/OT Recommendations Outpatient Agency/Support Group Needs: Homecare agency, Hemodialysis Hemodialysis Needs: Resumption Referral Placed: HD Facility Notified of Discharge Plan Location: [facility] HD Chair Confirmed: 0 HD ChairDetails: MWF 0600 Home Health Services: Registered Nurse Agency Referrals: [facility] for dialysis Transportation: family or friend will provide *Spouse Melissa [phone] Barriers to discharge: Discharge planning *[facility] 0600, and [facility] restart referrals opened 04/21 Plan going forward: Pain management, PT/OT eval. Dressing down on 04/29. Homecare and dialysis routedpending update PT/OT eval. For further discharge planning Care Management will continue to follow and assist with discharge planning and coordination of care as indicated. Anticipated Date of Discharge: 05/01/2024 Mariam Dean, VIDYA, BSN * Plan of Care - Myranda Cornell RN - 04/26/2024 2:17 AM EDT Pt AOx4, VSS on RA. Drsg to R BKA CDI, encouraged pt to keep elevated on pillows as ordered, pt only tolerates 1 pillow under stump. Pain control has been an issue overnight, when pt arrived from PACU his pain was a zero, by 2100 his pain was increasing. Pt was medicated per orders with PRN and breakthrough medications, MD was notified of unrelieved pain throughout the shift and orders were placed. Pt expressed a great deal of frustration about his pain and that this was not like his previous Left BKA surgery. Emotional support provided. Goal: Plan of Care Review Outcome: Ongoing (Interventions Implemented as Appropriate) Goal: Patient-Specific Goal (Individualized) Outcome: Ongoing (Interventions Implemented as Appropriate) Goal: Absence of Hospital-Acquired Illness or Injury Outcome: Ongoing (Interventions Implemented as Appropriate) Goal: Optimal Comfort and Wellbeing Outcome: Ongoing (Interventions Implemented as Appropriate) Goal: Readiness for Transition of Care Outcome: Ongoing (Interventions Implemented as Appropriate) Problem: Fall Injury Risk Goal: Absence of Fall and Fall-Related Injury Outcome: Ongoing (Interventions Implemented as Appropriate) Problem: Adjustment to Amputation Goal: Optimal Adjustment to Amputation Outcome: Ongoing (Interventions Implemented as Appropriate) Problem: BADL (Basic Activities of Daily Living) Impairment (Lower Extremity Amputation) Goal: Optimal Safe BADL Performance Outcome: Ongoing (Interventions Implemented as Appropriate) Problem: IADL (Instrumental Activities of Daily Living) Impairment (Lower Extremity Amputation) Goal: Optimal Safe IADL Performance Outcome: Ongoing (Interventions Implemented as Appropriate) Problem: Lower Limb Care (Lower Extremity Amputation) Goal: Effective Lower Limb Care Outcome: Ongoing (Interventions Implemented as Appropriate) Problem: Mobility Impairment (Lower Extremity Amputation) Goal: Optimal Mobility [place] and Safety Outcome: Ongoing (Interventions Implemented as Appropriate) Problem: Pain and Hypersensitivity (Lower Extremity Amputation) Goal: Acceptable Pain/Hypersensitivity Control Outcome: Ongoing (Interventions Implemented as Appropriate) Problem: Prosthetic Use and Management (Lower Extremity Amputation) Goal: Effective Prosthesis Use and Management Outcome: Ongoing (Interventions Implemented as Appropriate) Problem: Confusion Acute Goal: Optimal Cognitive Function Outcome: Ongoing (Interventions Implemented as Appropriate) * Plan of Care - Katherine Greenberg RN - 04/25/2024 6:35 PM EDTSummary: Progress Note Images from the original note were not included. OUTCOME EVALUATION NOTE: OUTCOME SUMMARY: Pt has been NPO since midnight. Pt is A+Ox4. Pt has been cooperative and pleasant this shift. Pt had rested most of the morning. Pt stated that he was having a really lot of pain in his right leg today, a lot more than normal. He was given pain meds as ordered. Pt went to OR around 1330 today. No report from PACU my shift. Pts is at bedside waiting on patient to return from OR. PLAN MOVING FORWARD: Cont. Dialysis Pain Managerment INDIVIDUALIZED FALL PREVENTION INTERVENTIONS: Patient-specific fall risk factors per assessment: [current deficits]: Assistance [level of assistance required for transfers and ambulation]: Supervision [direct monitoring required during toileting and ADLs]: Surveillance [continuous indirect monitoring]: Patient-specific fall prevention interventions for sensory deficits provided, if applicable: CARE PLAN GOAL OUTCOME EVALUATION: Problem: Fall Injury Risk Goal: Absence of Fall and Fall-Related Injury Outcome: Ongoing (Interventions Implemented as Appropriate) Problem: Adjustment to Amputation Goal: Optimal Adjustment to Amputation Outcome: Ongoing (Interventions Implemented as Appropriate) * Op Note - Russell Cohen MD - 04/25/2024 5:59 PM EDT [facility] [place] Operative Note Patient Name: Gerson Bruner : [id number] MR#: [id number] Case Date: 04/25/2024 Surgeon: Surgeons and Role: * Janet Carrington MD - Primary * Russell Cohen MD - Resident - Assisting * Melissa Courtney MD - Fellow - Assisting Preoperative diagnosis: infected right heal Postoperative diagnosis: infected right heal Procedure(s) (LRB): AMPUTATION, BELOW-KNEE, SECONDARY CLOSURE OR SCAR REVISION (WRVU 8.76) (Right) Right leg amputation closure, formalization to right BKA Findings: Pale muscle with minimal switch. Closure of right BKA performed in standard fashion. Closed primarily and wrapped with xerofrom fluffs kerlix and JA Anesthesia: Anesthesia type not filed in the log. Estimated Blood Loss: Specimens removed during surgery: Order Name Source Comment Collection Info Order Time SPECIMEN TO PATHOLOGY RIGHT lower leg infected right heal RIGHT lower leg excision 04/25/2024 5:01 PM Time specimen removed from patient: 5:01 PM Number of tissue samples (in container) 1 Drains: None Surgical Closure: Primary Closure - skin incision is completely closed without any wires, jose alejandro, drains or other devices Disposition: awakened from anesthesia, extubated and taken to the recovery room in a stable condition, having suffered no apparent untoward event. Condition: doing well without problems (Please see the Surgical Encounter Summary for any Implant and Specimen details pertinent to this patient.) HPI/Surgical Indications: Gerson Bruner is a 58 y.o. 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 His BKA has been healing well. The patient presented with worsening of his right heel wound with elevated WBC and fevers. He went to the OR for debridement and ultimately underwent RLE guillotine BKA due to the severity and extent of the infection of his heel wound. Plan is to have him undergo secondary BKA closure. Procedure Description: Gerson Bruner was met in the inpatient unit where the indications, risks, benefits and alternatives were reviewed. After questions were addressed, informed consent was given for operative right BKA closure. Gerson Bruner was brought to the operating room where they were anesthetized with general anesthesia. They received a regional block. The right lower extremity was prepared in the usual sterile fashion. A time out was perform We started with a skin incision along the anterior whiting using a #10 scalpel. A longer posterior skin flap was left for end re-approximation. The incision was carried down into the deep subcutaneous tissue with Bovie electrocautery. We further dissected through the various muscles and tendinous structures using electrocautery. Of note, the muscles of all compartments demonstrated minimal twitch with electrocautery stimulation. The anterior tibial artery was identified, clamped, cut, and suture ligated with 2-0 silk to achieve hemostasis. Bleeding from the associated anterior tibial veins was controlled by oversewing in a snwuke-pg-oxezw fashion with 3-0 silk.The tibia was circumferentially freed from surrounding tissues using a periosteal elevator, and a power saw used to transect the bone. The fibula was circumferentially freed from surrounding tissues by use of a periosteal elevator. Abone cutter was used to transect the fibula. Dissection was carried down to posterior skin with an amputation knife. The posterior tibial artery and peroneal artery were then identified, clamped, cut, and suture-ligated with 2-0 silk ties to achieve hemostasis. Bleeding from the associated veins was controlled by oversewing in a vyvrus-dd-ffhpd fashion with 3-0 silk. Redundant subcutaneous tissueon the posterior flap was removed with the amputation knife. Hemostasis was then achieved by use jryxixwh-ni-ptvtf stitches. We then used interrupted 2-0 Vicry stitches to first approximate the fascial layers around the muscles in order to bring the edge of the longer posterior flap anteriorly. The skin was closed with 3-0 prolene vertical mattress sutures. Wrapped with xerofrom fluffs kerlix and JA Surgical Infection Prevention Bundle Used? No Associated attestation - Janet Carrington MD - 04/26/2024 9:59 AM EDT Attestation: Case Date: 04/25/2024 I was present and I participated during the entire procedure (does not need to include opening and closing). Janet Carrington MD 04/26/2024 * Plan of Care - Myranda Cornell RN - 04/25/2024 5:19 AM EDT Problem: Adult Inpatient Plan of Care Goal: Plan of Care Review Outcome: Ongoing (Interventions Implemented as Appropriate) Goal: Patient-Specific Goal (Individualized) Outcome: Ongoing (Interventions Implemented as Appropriate) Goal: Absence of Hospital-Acquired Illness or Injury Outcome: Ongoing (Interventions Implemented as Appropriate) Goal: Optimal Comfort and Wellbeing Outcome: Ongoing (Interventions Implemented as Appropriate) Goal: Readiness for Transition of Care Outcome: Ongoing (Interventions Implemented as Appropriate) Problem: Fall Injury Risk Goal: Absence of Fall and Fall-Related Injury Outcome: Ongoing (Interventions Implemented as Appropriate) Problem: Adjustment to Amputation Goal: Optimal Adjustment to Amputation Outcome: Ongoing (Interventions Implemented as Appropriate) Problem: BADL (Basic Activities of Daily Living) Impairment (Lower Extremity Amputation) Goal: Optimal Safe BADL Performance Outcome: Ongoing (Interventions Implemented as Appropriate) Problem: Lower Limb Care (Lower Extremity Amputation) Goal: Effective Lower Limb Care Outcome: Ongoing (Interventions Implemented as Appropriate) Problem: Mobility Impairment (Lower Extremity Amputation) Goal: Optimal Mobility [place] and Safety Outcome: Ongoing (Interventions Implemented as Appropriate) Problem: Pain and Hypersensitivity (Lower Extremity Amputation) Goal: Acceptable Pain/Hypersensitivity Control Outcome: Ongoing (Interventions Implemented as Appropriate) Problem: Prosthetic Use and Management (Lower Extremity Amputation) Goal: Effective Prosthesis Use and Management Outcome: Ongoing (Interventions Implemented as Appropriate) Problem: Confusion Acute Goal: Optimal Cognitive Function Outcome: Ongoing (Interventions Implemented as Appropriate) * Plan of Care - Katherine Greenberg RN - 04/24/2024 6:55 PM EDTSummary: Progress Note OUTCOME EVALUATION NOTE: OUTCOME SUMMARY: Pt has been pretty lethargic this shift up until he went for dialysis. Pt vitals WNL. Pt on tele and in NSR. Pt became pretty agitated and upset this shift with staff because he wanted to use the bathroom. Pt was explained that he would have to use a bedpan or bedside commode as he has not been evaluated by PT and that staff were not able to transfer safely from wheelchair to bathroom toilet. Pt w as yelling and stated that he was ready to leave this hospital and that this is stupid, I can justcrawl to the bathroom. Pts was at bedside. After some time patient did settle down and agreedto use the bedside commode. Pt had been NPO this shift as he was to go to the OR for his foot. Pt was also supposed to have dialysis today. There was some confusion on whether or not patient was going to receive the dialysis, decision was that vascular wanted patient to have dialysis prior to going to the OR as his potassium was 5.5. Pt went to dialysis and tolerated well. Pt was brought back to his room at 1630, vascular decided not to do surgery today, pts diet was changed back to regular so he was able to eat dinner. Pt did become more alert after his dialysis, was able to sit up and eat his dinner without falling asleep. Plan is for patient to be NPO midnight tonight. PLAN MOVING FORWARD: Cont. Dialysis NPO tonight Pain Managerment INDIVIDUALIZED FALL PREVENTION INTERVENTIONS: Patient-specific fall risk factors per assessment: [current deficits]: Assistance [level of assistance required for transfers and ambulation]: Supervision [direct monitoring required during toileting and ADLs]: Surveillance [continuous indirect monitoring]: Patient-specific fall prevention interventions for sensory deficits provided, if applicable: CARE PLAN GOAL OUTCOME EVALUATION: Problem: Fall Injury Risk Goal: Absence of Fall and Fall-Related Injury Outcome: Ongoing (Interventions Implemented as Appropriate) Problem: Adjustment to Amputation Goal: Optimal Adjustment to Amputation Outcome: Ongoing (Interventions Implemented as Appropriate) * Care Management - Mariam Dean RN - 04/24/2024 12:41 PM EDT OFFICE OF CARE MANAGEMENT PROGRESS NOTE LOS: Hospital Day 4 days Chart reviewed, care reviewed with primary team and at interdisciplinary rounds. Patient continues to meet inpatient level of care related to: Waiting on PT/OT note after formalization (OR) is complete for final dc planning needs. Decision Maker: Self Functional status prior to admission: Independent (Manual wheelchair, off- loading boot) Home Environment: . . Accessibility Concerns: Lives in 2 story home where all needs are met on the first level. Current Functional Ability: Independent, Assistive Equipment *Manual wheelchair and off-loading boot DME used at home: wheelchair - manual, other (see comments) (Off-loading boot) Patient is insured through: Primary Insurance: MEDICARE Payor: MEDICARE / Plan: MEDICARE PART A & B / Product Type: *No Product type* / Secondary Insurance: N/A Plan for discharge is: Pending Hospital Course and PT/OT Recommendations Outpatient Agency/Support Group Needs: Homecare agency, Hemodialysis Hemodialysis Needs: Resumption Referral Placed: HD Facility Notified of Discharge Plan Location: [facility] [place] HD Chair Confirmed: 0 HD ChairDetails: MWF [id number] Home Health Services: Registered Nurse Agency Referrals: Soham Sepulveda Transportation: family or friend will provide *Spouse Melissa [phone] Barriers to discharge: Discharge planning *[facility] [place] HD MWF 0600, and [facility] restart referrals opened 04/21 Plan going forward: Waiting on PT/OT note after formalization (OR) is complete for final dc planning needs. Care Management will continue to follow and assist with discharge planning and coordinationof care as indicated. Anticipated Date of Discharge: 04/28/2024 Mariam Dean RN, BSN * Plan of Care - Gaye Lara RN - 04/24/2024 5:03 AM EDT OUTCOME EVALUATION NOTE: OUTCOME SUMMARY: Pt AxOx3 overnight. Disoriented to situation and forgetful. Pt asked multiple times if RN could gethim a cigarette. RN informed pt he could not smoke at the hospital. Pt became irritated with RN andagain asked about getting a cigarette. PRN pain medication required overnight. Refused 1 insulin dose this AM. PLAN MOVING FORWARD: Pain control Reorient pt BG monitoring O2 monitoring INDIVIDUALIZED FALL PREVENTION INTERVENTIONS: Patient-specific fall risk factors per assessment: [current deficits]: R foot amputation, LBKA Surveillance [continuous indirect monitoring]: purposeful rounding Patient-specific fall prevention interventions for sensory deficits provided, if applicable: [X] Yes bed alarm, call mitchell and personal items within reach CPG GOAL OUTCOME EVALUATION: Problem: Adult Inpatient Plan of Care Goal: Plan of Care Review Outcome: Ongoing (Interventions Implemented as Appropriate) Goal: Patient-Specific Goal (Individualized) Outcome: Ongoing (Interventions Implemented as Appropriate) Goal: Absence of Hospital-Acquired Illness or Injury Outcome: Ongoing (Interventions Implemented as Appropriate) Goal: Optimal Comfort and Wellbeing Outcome: Ongoing (Interventions Implemented as Appropriate) Goal: Readiness for Transition of Care Outcome: Ongoing (Interventions Implemented as Appropriate) Problem: Fall Injury Risk Goal: Absence of Fall and Fall-Related Injury Outcome: Ongoing (Interventions Implemented as Appropriate) Problem: Adjustment to Amputation Goal: Optimal Adjustment to Amputation Outcome: Ongoing (Interventions Implemented as Appropriate) Problem: BADL (Basic Activities of Daily Living) Impairment (Lower Extremity Amputation) Goal: Optimal Safe BADL Performance Outcome: Ongoing (Interventions Implemented as Appropriate) Problem: IADL (Instrumental Activities of Daily Living) Impairment (Lower Extremity Amputation) Goal: Optimal Safe IADL Performance Outcome: Ongoing (Interventions Implemented as Appropriate) Problem: Lower Limb Care (Lower Extremity Amputation) Goal: Effective Lower Limb Care Outcome: Ongoing (Interventions Implemented as Appropriate) Problem: Mobility Impairment (Lower Extremity Amputation) Goal: Optimal Mobility [place] and Safety Outcome: Ongoing (Interventions Implemented as Appropriate) Problem: Pain and Hypersensitivity (Lower Extremity Amputation) Goal: Acceptable Pain/Hypersensitivity Control Outcome: Ongoing (Interventions Implemented as Appropriate) Problem: Prosthetic Use and Management (Lower Extremity Amputation) Goal: Effective Prosthesis Use and Management Outcome: Ongoing (Interventions Implemented as Appropriate) Problem: Confusion Acute Goal: Optimal Cognitive Function Outcome: Ongoing (Interventions Implemented as Appropriate) * Plan of Care - Sofy Ross RN - 04/23/2024 3:28 PM EDT OUTCOME EVALUATION NOTE: OUTCOME SUMMARY: Patient frequently does not want to wear his oxygen, despite education and this may contribute to his confusion at times. Xander does endorse pain- see MAR for interventions. His BG has been elevated and he was seen by endocrinology who made recommendations to his insulin regime. Patient is frustratedas he can't go outside to have a cigarette, but denies a nicotine patch or gum. Xander's mother and spouse visited him today and brought him banana bread, soup and lasagna. Gym Teacher did educate Xander on being careful with what he eats so his BG doesn't go too high. Xander was a bit frustrated and insisted that if we would just give him what he takes at home he will be fine. Gym Teacher explained about the ordersets and how it is set up based on his fingerstick. Spouse was able to calm him down and he understood better. Xander able to rest this afternoon and felt better after that. He is anxious to work with PT so he cantransfer to his wheelchair. Tele Note: S: denied SOB or chest pain during shift O: Patient in NSR A: Patient tolerating present rhythm. P: Continue telemetry until it is dcd. PLAN MOVING FORWARD: -Pain contirol -Encourage patient to weight shift -Continue to monitor O2 sat and educate patient on the need for O2 -BG every 4 hours -reinforce RLE dressing or change if it is saturated -OR for amputation closure later this week INDIVIDUALIZED FALL PREVENTION INTERVENTIONS: Patient-specific fall risk factors per assessment: [current deficits]: pain, unfamiliar environment, new RBKA and old LBKA Assistance [level of assistance required for transfers and ambulation]: 2 assist/lift(requested lift room) Supervision [direct monitoring required during toileting and ADLs]: hands on Surveillance [continuous indirect monitoring]: Masimo, telemetry, purposeful rounding Patient-specific fall prevention interventions for sensory deficits provided, if applicable: [X] N/A CARE PLAN GOAL OUTCOME EVALUATION: Ongoing Problem: Adult Inpatient Plan of Care Goal: Plan of Care Review 04/23/2024 152 by Sofy Ross RN Outcome: Ongoing (Interventions Implemented as Appropriate) 04/23/2024 1525 by Sofy Ross RN Outcome: Ongoing (Interventions Implemented as Appropriate) Goal: Patient-Specific Goal (Individualized) 04/23/2024 1526 by Sofy Ross RN Outcome: Ongoing (Interventions Implemented as Appropriate) 04/23/2024 1525 by Sofy Ross RN Outcome: Ongoing (Interventions Implemented as Appropriate) Goal: Absence of Hospital-Acquired Illness or Injury 04/23/2024 1526 by Sofy Ross RN Outcome: Ongoing (Interventions Implemented as Appropriate) 04/23/2024 1525 by Sofy Ross RN Outcome: Ongoing (Interventions Implemented as Appropriate) Goal: Optimal Comfort and Wellbeing 04/23/2024 1526 by Sofy Ross RN Outcome: Ongoing (Interventions Implemented as Appropriate) 04/23/2024 1525 by Sofy Ross RN Outcome: Ongoing (Interventions Implemented as Appropriate) Goal: Readiness for Transition of Care 04/23/2024 1526 by Sofy Ross RN Outcome: Ongoing (Interventions Implemented as Appropriate) 04/23/2024 1525 by Sofy Ross RN Outcome: Ongoing (Interventions Implemented as Appropriate) Problem: Fall Injury Risk Goal: Absence of Fall and Fall-Related Injury 04/23/2024 1526 by Sofy Ross RN Outcome: Ongoing (Interventions Implemented as Appropriate) 04/23/2024 1525 by Sofy Ross RN Outcome: Ongoing (Interventions Implemented as Appropriate) Problem: Adjustment to Amputation Goal: Optimal Adjustment to Amputation 04/23/2024 1526 by Sofy Ross RN Outcome: Ongoing (Interventions Implemented as Appropriate) 04/23/2024 1525 by Sofy Ross RN Outcome: Ongoing (Interventions Implemented as Appropriate) Problem: BADL (Basic Activities of Daily Living) Impairment (Lower Extremity Amputation) Goal: Optimal Safe BADL Performance 04/23/2024 1526 by Sofy Ross RN Outcome: Ongoing (Interventions Implemented as Appropriate) 04/23/2024 1525 by Sofy Ross RN Outcome: Ongoing (Interventions Implemented as Appropriate) Problem: IADL (Instrumental Activities of Daily Living) Impairment (Lower Extremity Amputation) Goal: Optimal Safe IADL Performance 04/23/2024 1526 by Sofy Ross RN Outcome: Ongoing (Interventions Implemented as Appropriate) 04/23/2024 1525 by Sofy Ross RN Outcome: Ongoing (Interventions Implemented as Appropriate) Problem: Lower Limb Care (Lower Extremity Amputation) Goal: Effective Lower Limb Care 04/23/2024 1526 by Sofy Ross RN Outcome: Ongoing (Interventions Implemented as Appropriate) 04/23/2024 1525 by Sofy Ross RN Outcome: Ongoing (Interventions Implemented as Appropriate) Problem: Mobility Impairment (Lower Extremity Amputation) Goal: Optimal Mobility [place] and Safety 04/23/2024 1526 by Sofy Ross RN Outcome: Ongoing (Interventions Implemented as Appropriate) 04/23/2024 1525 by Sofy Ross RN Outcome: Ongoing (Interventions Implemented as Appropriate) Problem: Pain and Hypersensitivity (Lower Extremity Amputation) Goal: Acceptable Pain/Hypersensitivity Control 04/23/2024 1526 by Sofy Ross RN Outcome: Ongoing (Interventions Implemented as Appropriate) 04/23/2024 1525 by Sofy Ross RN Outcome: Ongoing (Interventions Implemented as Appropriate) Problem: Prosthetic Use and Management (Lower Extremity Amputation) Goal: Effective Prosthesis Use and Management 04/23/2024 1526 by Sofy Ross RN Outcome: Unable to achieve outcome by discharge 04/23/2024 1525 by Sofy Ross RN Outcome: Unable to achieve outcome by discharge Problem: Confusion Acute Goal: Optimal Cognitive Function 04/23/2024 1526 by Sofy Ross RN Outcome: Ongoing (Interventions Implemented as Appropriate) 04/23/2024 1525 by Sofy Ross RN Outcome: Ongoing (Interventions Implemented as Appropriate) * Consult Note - Peter Colvin MD - 04/23/2024 12:53 PM EDT Diabetes Management Team Inpatient Consult Date of Consultation: 04/23/2024 Consult Requested by: Munira Jorge MD Reason for Consultation: Gerson Bruner is a 58 y.o. male with PMH significant for T2DM, ESRD on HD(MWF), TIA (2019), s/p Left BKA on 02/21/24 and right SFA/PT angioplasty 04/11/24, who was admitted on 04/20/2024 currently being treated for RLE wound s/p R BKA. We are being consulted to assist with diabetes management and to provide a review of exterminator diabetes care. Diabetes History: Gerson Bruner has had diabetes since age of 21. Initially was treated with oral medications. Reported unhealthy diet prior to diagnosis. No h/o DKA. Current outpatient diabetes regimen: Diabetes Provider: Ken Greer MD Medications: Lantus 30 units and Novolog 8 units per meals Monitoring is done daily Most recent HA1c was done on 03/13/24 and was 8.4% Typical diet is: Breakfast- skipped Lunch- Supper- large meal of the day Trouble with hypoglycemia once a week, usually during fasting Current Weight 86.2 kg (BMI 28) Diabetes Complications Status: Eyes: Retinopathy Kidneys: ESRD on HD Feet: s/p L BKA now with RLE wound s/p R BKA Sensory: neuropathy Autonomic: None Cardiovascular : TIA Current Hospital Diabetes Care: Medications: Lantus 15 units, Lispro sensitive correction scale q 4 hrs, meal- associated lispro 1u to 10 g carb Monitoring: q 4 hrs Diet: carb control level 2 PMH Past Medical History: Diagnosis Date Anemia Chronic kidney disease CKD (chronic kidney disease) stage 4, GFR 15-29 ml/min Diabetes mellitus Herniation of lumbar intervertebral disc with radiculopathy 08/16/2015 L4-5 left Hypertension Current Hospital Medications: [START ON 04/24/2024] insulin glargine (Lantus;Semglee) (100 unit/mL) subcutaneous injection 26 UnitsSubcutaneous Daily insulin lispro 1-6 Units Subcutaneous Q4H PAULIE dilTIAZem 30 mg Oral Q6H PAULIE sodium chloride 0.9 % (flush) 5 mL Intravenous BID heparin (porcine) 5,000 Units Subcutaneous 2 times per day acetaminophen 975 mg Oral Q6H PAULIE aspirin EC 81 mg Oral Daily atorvastatin 40 mg Oral QPM pantoprazole EC 40 mg Oral Daily pregabalin 100 mg Oral BID sevelamer carbonate 800 mg Oral TID WC piperacillin-tazobactam 3.375 g Intravenous Q12H carvediloL 12.5 mg Oral BID WC PRN: glucose 40% oral geL OR dextrose OR glucagon, sodium chloride 0.9%, calcium carbonate, heparin (porcine), HYDROmorphone OR HYDROmorphone, HYDROmorphone, vancomycin- intermittent dosing per levels, sodium chloride 0.9 % (flush), lidocaine Allergy: Allergies Allergen Reactions Clindamycin Swelling. Gabapentin swelling Zoloft [Sertraline] Other reaction(s): Unsure Social history: Social History Tobacco Use Smoking status: Every Day Current packs/day: 0.00 Types: Cigarettes Last attempt to quit: 12/26/2018 Years since quittin.3 Smokeless tobacco: Never Tobacco comments: smoking a few a day Vaping Use Vaping status: Never Used Substance Use Topics Alcohol use: No Drug use: Yes Types: Marijuana Comment: multiple times daily Family history: Family History Problem Relation Age of Onset Diabetes Mother Cancer Father Diabetes Paternal Grandmother Heart Disease Paternal Grandfather Vitals Last value Range last 24 hrs Temperature Temp: 36.9 ??C (98.4 ??F) Temp: [36.4 ??C (97.5 ??F)-36.9 ??C (98.4 ??F)] Heart Rate Heart Rate: 61 Heart Rate: [61-112] Blood Pressure BP: 129/67 BP: (117-135)/(63-69) Respiratory Rate Resp: 20 Resp: [16-20] SpO2 SpO2: 93 % SpO2: [84 %-95 %] Physical Exam: General appearance: No apparent distress, resting comfortably in bed. HEENT: Moist mucous membranes, no visible thyroid enlargement CVS: RRR Pulmonary: Equal chest expansion GI: Abdomen non-tender Ext: bilat BKA Neuro: Grossly non focal. Labs: Lab Results Component Value Date BUN 39 (H) 04/23/2024 CREATININE 5.67 (H) 04/23/2024 GLUCOSE 321 (H) 04/23/2024 GLUCFASTING 331 (H) 03/07/2019 ESTGFR 11 (L) 04/23/2024 Lab Results Component Value Date HA1C 8.4 (H) 03/13/2024 Lab Results Component Value Date MICROALBUR 577.9 06/13/2015 Lab Results Component Value Date CHLPL 269 03/07/2019 Lab Results Component Value Date HDL 46 03/07/2019 No results found for: LDLCHOL Lab Results Component Value Date TRIG 323 03/07/2019 Lab Results Component Value Date CHOLHDL 5.8 03/07/2019 Assessment: Patient is a 58 y.o. 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 Diabetes suboptimally controlled and currently complicated by infection, surgery. Currently with variability of blood glucose levels while hospitalized requiring adjustment of insulin regimen and DM medications. T2DM Patient was on MDI regimen at home which he reports fasting hypoglycemia occasionally. He also has A1C above goal which he attributed to diet and not giving enough insulin for meals. We recommend giving a reduced dose of Lantus due to h/o hypoglycemia at home. He will need higher insulin dose for meal coverage and sliding scale. Plan: 1. Increase Lantus to 26 units qd 2. Lispro custom correction scale for BG>150 q 4 hrs CORRECTION BOLUS [1-6 Units] Custom Sliding Scale (BG in mg/dL): Correction factor 30 (1 unit of insulin is expected to drop theglucose 30 mg/dL) BG 150 - 180 Give 1 units BG 181 - 210 Give 2 units BG 211 - 240 Give 3 units BG 241 - 270 Give 4 units BG 271 - 300 Give 5 units BG greater than 300, give 6 units and recheck BG in 2 hours. If recheck BG remains GREATER THAN 240, GIVE 3 units & call for new insulin orders. If recheck BG is less than 240 after two hours, give no insulin and resume prior schedule. DO NOT hold if NPO, unless specifically directed to do so by written order. Per Blood Glucose Monitoring Policy, re-check a BG of > 240 mg/dL in 2 hours. 3. Meal-associated Lispro 1unit: 8 gm carb ratio for each meal) 4. Diet carb control level 2 Thank you for allowing us to provide care for your patient Case discussed with and communicated with the team. Peter Colvin MD [facility] Endocrinology PGY-5, Fellow Pager #[phone] Associated attestation - Eriberto Shabazz MD - 04/23/2024 1:23 PM EDT Patient evaluated by me and Dr. Colvin. I reviewed the olivares portions of the history, and reviewed pertinent lab data. I was involved in all medical decision making and agree with this plan. Will increase Lantus insulin and intensify carb ratio. Other as per fellow. Eriberto Shabazz MD Professor * Plan of Care - Gaye Lara RN - 04/23/2024 4:47 AM EDT OUTCOME EVALUATION NOTE: OUTCOME SUMMARY: Pt AxOx3 overnight. Disoriented to situation and forgetful. Pt intermittently refused to wear his nasal cannula overnight saying I don't need oxygen. When low spO2 alarm would go off, pt would put nasal cannula back on until the alarm stopped and remove it again. Pt intermittently irritable and argumentative overnight about aspects of care and medication requiring RN to educate pt multiple times about medications. Pt had multiple complaints of pain overnight requiring PRN medication to be given. BG as high as 390 overnight requiring MD to adjust medication orders. PLAN MOVING FORWARD: Pain control Reorient pt BG monitoring O2 monitoring INDIVIDUALIZED FALL PREVENTION INTERVENTIONS: Patient-specific fall risk factors per assessment: [current deficits]: R foot amputation, LBKA Surveillance [continuous indirect monitoring]: purposeful rounding Patient-specific fall prevention interventions for sensory deficits provided, if applicable: [X] Yes bed alarm, call mitchell and personal items within reach CPG GOAL OUTCOME EVALUATION: Problem: Adult Inpatient Plan of Care Goal: Plan of Care Review Outcome: Ongoing (Interventions Implemented as Appropriate) Goal: Patient-Specific Goal (Individualized) Outcome: Ongoing (Interventions Implemented as Appropriate) Goal: Absence of Hospital-Acquired Illness or Injury Outcome: Ongoing (Interventions Implemented as Appropriate) Goal: Optimal Comfort and Wellbeing Outcome: Ongoing (Interventions Implemented as Appropriate) Goal: Readiness for Transition of Care Outcome: Ongoing (Interventions Implemented as Appropriate) Problem: Fall Injury Risk Goal: Absence of Fall and Fall-Related Injury Outcome: Ongoing (Interventions Implemented as Appropriate) Problem: Adjustment to Amputation Goal: Optimal Adjustment to Amputation Outcome: Ongoing (Interventions Implemented as Appropriate) Problem: BADL (Basic Activities of Daily Living) Impairment (Lower Extremity Amputation) Goal: Optimal Safe BADL Performance Outcome: Ongoing (Interventions Implemented as Appropriate) Problem: IADL (Instrumental Activities of Daily Living) Impairment (Lower Extremity Amputation) Goal: Optimal Safe IADL Performance Outcome: Ongoing (Interventions Implemented as Appropriate) Problem: Lower Limb Care (Lower Extremity Amputation) Goal: Effective Lower Limb Care Outcome: Ongoing (Interventions Implemented as Appropriate) Problem: Mobility Impairment (Lower Extremity Amputation) Goal: Optimal Mobility [place] and Safety Outcome: Ongoing (Interventions Implemented as Appropriate) Problem: Pain and Hypersensitivity (Lower Extremity Amputation) Goal: Acceptable Pain/Hypersensitivity Control Outcome: Ongoing (Interventions Implemented as Appropriate) Problem: Prosthetic Use and Management (Lower Extremity Amputation) Goal: Effective Prosthesis Use and Management Outcome: Ongoing (Interventions Implemented as Appropriate) Problem: Confusion Acute Goal: Optimal Cognitive Function Outcome: Ongoing (Interventions Implemented as Appropriate) * Plan of Care - Sofy Ross RN - 04/22/2024 7:05 PM EDT OUTCOME EVALUATION NOTE: OUTCOME SUMMARY: Patient restless this morning when video games storywriter came on shift. VSS, except pain- see MAR for interventions. Gym Teacher noted that Xander's O2 was going down to low 80s and encouraged him to take some deep breathsand explained the need to place him on O2. Xander rather frustrated and stated multiple times throughout the day that is just what his body does and that he is fine. Gym Teacher continued education with patient and spouse when she was here this afternoon. Patient went to dialysis to have more taken off andthey were able to take off 1844 ml, prior to patient going into AFIB with RVR. EKG confirmed this and patient denied any symptoms related to this rhythm. Patient came back to the floor, Cardiology saw him- see MAR for changes in his medications. Xander converted back to NSR at approximately 1720 and denied any chest pain or SOB for the shift. Tele Note: S: denied SOB or chest pain during shift O: NSR from [id number], then went into AFIB with RVR until 1720 when he converted back to a NSR. A: Patient tolerating present rhythm. P: Continue telemetry until it is dcd. PLAN MOVING FORWARD: -Pain contirol -Encourage patient to weight shift -Continue to monitor O2 sat and educate patient on the need for O2 -BG every 4 hours -reinforce RLE dressing or change if it is saturated INDIVIDUALIZED FALL PREVENTION INTERVENTIONS: Patient-specific fall risk factors per assessment: [current deficits]: pain, unfamiliar environment, new RBKA and old LBKA Assistance [level of assistance required for transfers and ambulation]: 2 assist/lift(requested lift room) Supervision [direct monitoring required during toileting and ADLs]: hands on Surveillance [continuous indirect monitoring]: Masimo, telemetry, purposeful rounding Patient-specific fall prevention interventions for sensory deficits provided, if applicable: [X] N/A CARE PLAN GOAL OUTCOME EVALUATION: Ongoing Problem: Adult Inpatient Plan of Care Goal: Plan of Care Review Outcome: Ongoing (Interventions Implemented as Appropriate) Goal: Patient-Specific Goal (Individualized) Outcome: Ongoing (Interventions Implemented as Appropriate) Goal: Absence of Hospital-Acquired Illness or Injury Outcome: Ongoing (Interventions Implemented as Appropriate) Goal: Optimal Comfort and Wellbeing Outcome: Ongoing (Interventions Implemented as Appropriate) Goal: Readiness for Transition of Care Outcome: Ongoing (Interventions Implemented as Appropriate) Problem: Fall Injury Risk Goal: Absence of Fall and Fall-Related Injury Outcome: Ongoing (Interventions Implemented as Appropriate) Problem: Adjustment to Amputation Goal: Optimal Adjustment to Amputation Outcome: Ongoing (Interventions Implemented as Appropriate) Problem: BADL (Basic Activities of Daily Living) Impairment (Lower Extremity Amputation) Goal: Optimal Safe BADL Performance Outcome: Ongoing (Interventions Implemented as Appropriate) Problem: IADL (Instrumental Activities of Daily Living) Impairment (Lower Extremity Amputation) Goal: Optimal Safe IADL Performance Outcome: Ongoing (Interventions Implemented as Appropriate) Problem: Lower Limb Care (Lower Extremity Amputation) Goal: Effective Lower Limb Care Outcome: Ongoing (Interventions Implemented as Appropriate) Problem: Mobility Impairment (Lower Extremity Amputation) Goal: Optimal Mobility [place] and Safety Outcome: Ongoing (Interventions Implemented as Appropriate) Problem: Pain and Hypersensitivity (Lower Extremity Amputation) Goal: Acceptable Pain/Hypersensitivity Control Outcome: Ongoing (Interventions Implemented as Appropriate) Problem: Prosthetic Use and Management (Lower Extremity Amputation) Goal: Effective Prosthesis Use and Management Outcome: Ongoing (Interventions Implemented as Appropriate) Problem: Confusion Acute Goal: Optimal Cognitive Function Outcome: Ongoing (Interventions Implemented as Appropriate) * Consult Note - Graeme Younger [facility] - 04/22/2024 1:43 PM EDT Clinical Pharmacist Note-Vanc Gerson Bruner [id number] 1965 Gerson Bruner is a 58 y.o. male is being monitored due to antibiotic therapy which includes intravenous vancomycin. Regimen: Vancomycin intermittent dosing for hemodialysis Indication: empiric coverage of foot infection Initiation Date:04/20 Day of Therapy:3 Targeted Goal Range: 15 - 20 mcg/mL Pharmacokinetic information: Wt Readings from Last 1 Encounters: 04/20/24 86.2 kg (190 lb) Ht Readings from Last 1 Encounters: 04/11/24 175.3 cm (5' 9) Labs: Vancomycin: Post HD vancomycin level = 15.6 mg/L Creatinine clearance: Creatinine (mg/dL) Date Value 04/22/2024 6.97 (H) Recommendations: Dosing recommendations: Based on this information no dose is needed after today's dialysis session Recheck vancomycin level prior to HD on Wednesday Subsequent dosing to be determined based on pre-HD level It is assumed 30% of the drug will be removed during a standard 4 hour HD session. We will continueto monitor the patient as long as he remains on vancomycin therapy. Please watch SCr, BUN and fluidstatus closely. Please page the care area pharmacist with any questions you may have. Alternately, during off-hours you may call [phone] to contact a pharmacist. Graeme Younger RPH Pager: [phone] * Consult Note - Sharri Sparks MD - 04/22/2024 12:23 PM EDT Images from the original note were not included. [facility] YARITZA Mai [id number] INPATIENT CARDIOLOGY CONSULT NOTE Hospital Day 2 days Reason for Consult: atrial fibrillation Active Problems: Active Hospital Problems Diagnosis Non healing left heel wound Resolved Hospital Problems No resolved problems to display. HPI: Gerson Bruner is a 58 y.o. male with a history of IDDM, ESRD, TIA, and severe vascular disease whopresents to [facility] with worsening of his right heel wound with elevated WBC and fevers. He went to the OR for debridement and ultimately underwent RLE guillotine BKA due to the severity and extent of the infection of his heel wound just yesterday. As of yesterday he developed new atrial fibrillation with RVR. Patient has known history of atrial fibrillation. He was diagnosed with it ~1 year ago at [facility]. Unfortunately due to medication reconciliation issues his Eliquis dropped off from discharge from rehab. Reviewed ECG agree that rhythm appears to be atrial fibrillation. Patient is asymptomatic denies SOB, dizziness, chest pain, palpitations. He does report significant lower extremity pain at surgical site. His hemodynamics are reassuring as well. He is overall tolerating the atrial fibrillation withRVR well. His rates are also reassuring ~110-115 bpm at most. His home medications include: - Amlodipine 10 mg daily - Diltiazem 120 mg daily - Carvedilol 12.5 mg BID Diltiazem 120 CD started yesterday. Carvedilol 12.5 mg BID also restarted after surgery. Past Medical History: Diagnosis Date Anemia Chronic kidney disease CKD (chronic kidney disease) stage 4, GFR 15-29 ml/min Diabetes mellitus Herniation of lumbar intervertebral disc with radiculopathy 08/16/2015 L4-5 left Hypertension Past Surgical History: Procedure Laterality Date PRO AMPUTATION LOW LEG THRU TIB/FIB Left 02/21/2024 @AMPUTATION, BELOW-KNEE (WRVU 15.37) performed by Kristi Renae MD at [facility] MAIN OR PRO AMPUTATION LOW LEG, CIRCULAR Left 02/18/2024 @AMPUTATION, BELOW-KNEE, OPEN, GUILLOTINE (WRVU 9.79) performed by Kristi Renae MD at [facility] MAIN OR PRO ANASTOMOSIS, AV, ANY SITE Left 09/05/2018 AV FISTULA CREATION, DIRECT HEMODIALYSIS, ANY SITE, EG GABRIEL FISTULA UPPER EXTREMITY (WRVU 11.9) performed by Scout Reese MD at [facility] MAIN OR PRO COLONOSCOPY, REMV LESN, SNARE N/A 09/26/2019 COLONOSCOPY, POLYPECTOMY, REMOVAL LESION BY SNARE (WRVU 4.67) performed by Kaye Gibbs MD at [facility] ENDOSCOPY VS ARTERIOGRAM LOWER EXTREMITY VASCULAR SURGERY 04/11/2024 VS Arteriogram Lower Extremity Vascular Surgery 04/11/2024 Kristi Reane MD [facility] INTERVENTIONL RAD Allergies Allergen Reactions Clindamycin Swelling. Gabapentin swelling Zoloft [Sertraline] Other reaction(s): Unsure Out-Patient Medications: Medications Prior to Admission Medication Sig Dispense Refill Last Dose clopidogreL (Plavix) 75 mg tablet Take 1 tablet by mouth daily. 30 tablet 3 acetaminophen (Tylenol) 325 mg tablet Take 3 [...] by mouth daily. 30 capsule 0 insulin glargine-yfgn (Semglee) 100 unit/mL Solution Inject 15 Units subcutaneously daily. 1 mL 0 insulin lispro (HumaLOG) 100 unit/mL Solution [...] day with each meal 180 tablet 5 In-Patient Medications: sodium chloride 0.9 % (flush) 5 mL Intravenous BID heparin (porcine) 5,000 Units Subcutaneous 2 times per day acetaminophen 975 mg Oral Q6H PAULIE aspirin EC 81 mg Oral Daily atorvastatin 40 mg Oral QPM insulin lispro 1-4 Units Subcutaneous Q4H PAULIE pantoprazole EC 40 mg Oral Daily pregabalin 100 mg Oral BID sevelamer carbonate 800 mg Oral TID WC piperacillin-tazobactam 3.375 g Intravenous Q12H amLODIPine 10 mg Oral Daily carvediloL 12.5 mg Oral BID WC dilTIAZem CD 120 mg Oral Daily Family History: Family History Problem Relation Age of Onset Diabetes Mother Cancer Father Diabetes Paternal Grandmother Heart Disease Paternal Grandfather Social History: Social History Socioeconomic History Marital status: Spouse name: Not on file Number of children: Not on file Years of education: Not on file Highest education level: Not on file Occupational History Not on file Tobacco Use Smoking status: Every Day Current packs/day: 0.00 Types: Cigarettes Last attempt to quit: 12/26/2018 Years since quittin.3 Smokeless tobacco: Never Tobacco comments: smoking a few a day Vaping Use Vaping status: Never Used Substance and Sexual Activity Alcohol use: No Drug use: Yes Types: Marijuana Comment: multiple times daily Sexual activity: Not on file Other Topics Concern Not on file Social History Narrative Not on file Social Determinants of Health Financial Resource Strain: Not on file Food Insecurity: No Food Insecurity (04/21/2024) Hunger Vital Sign Worried About Running Out of Food in the Last Year: Never true Ran Out of Food in the Last Year: Never true Transportation Needs: No Transportation Needs (04/21/2024) PRAPARE - Transportation Lack of Transportation (Medical): No Lack of Transportation (Non-Medical): No Physical Activity: Not on file Intimate Partner Violence: Not At Risk (04/11/2024) IPV Inpatient Questions Prevent Contact with Others: no Feels Threatened by Someone: no Feels Unsafe at Home: no Physical Signs of Abuse Present: no Housing Stability: Low Risk (04/21/2024) Housing Stability Vital Sign Unable to Pay for Housing in the Last Year: No Number of Times Moved in the Last Year: 1 Homeless in the Last Year: No Review of Systems: 11 point ROS is either negative or per HPI Physical Exam: Last value Range last 8 hrs Temperature Temp: 36.5 ??C (97.7 ??F) Temp: [36.5 ??C (97.7 ??F)-37.3 ??C (99.1 ??F)] Heart Rate Heart Rate: (!) 102 Heart Rate: [67-102] Blood Pressure BP: 123/56 BP: (112-143)/(56-75) Respiratory Rate Resp: 17 Resp: [17] SpO2 SpO2: (!) 89 % SpO2: [83 %-97 %] Intake/Output Summary (Last 24 hours) at 04/22/2024 1224 Last data filed at 04/22/2024 0445 Gross per 24 hour Intake 660 ml Output 1228 ml Net -568 ml Wt & BMI By Encounter Date Flowsheet Row ED to Hosp-Admission (Current) from 04/20/2024 in Surgical Unit Level 4 Wing D at [facility] 86.2 kg (190 lb) 1 04/20/2024 1630 89.4 kg (197 lb) 1 04/11/2024 1346 BMI -- 29.09 1 04/11/2024 1346 General - No acute distress Respiratory: Clear to auscultation bilaterally. Good effort/excursion. Cardiac - RRR, normal S1/S2, no audible murmur, gallop or rubs. No JVD. No AVINASH. Abdomen - Soft, nontender/nondistended, normal active bowel sounds. Extremities -LLE: BKA site, RLE: s/p Guillotine amputation Neuro - Limited exam. No deficits. Recent Labs 04/22/2443504/21/24 16204/20/242331 WBC 15.0* 19.8* 17.1* HGB 8.5* 9.4* 8.9* HCT 28.6* 29.8* 28.8* PLATELET 328 348 340 Recent Labs 04/22/2443504/21/24 1624 04/20/242331 NA 138 137 132* K 5.3* 4.6 5.1* CL 99 97* 95* CO2 22 21* 23 BUN 39* 32* 42* CREATININE 6.97* 5.70* 7.05* Recent Labs 04/20/24 1709 AST 16 ALT 16 ALKPHOS 210* BILITOT <0.2* Recent Labs 04/22/2443504/21/24 1624 04/20/24 2332 04/20/24 2217 CALCIUM 8.4* 8.8 8.7 8.5 MAGNESIUM 0.86 0.82 -- 0.83 PHOS 7.9* 4.7* -- 5.8* No results for input(s): INR, PT, PTT in the last 168 hours. No results for input(s): CK, TROPONINT in the last 168 hours. No results found for: PROBNP Assessment/Recommendations: For this 58 year old gentleman who has IDDM, ESRD, TIA, and severe vascular disease [facility] due to Right heel infection s/p debridement/guillotine operation for source control whois now seen to be in atrial fibrillation with RVR. Would recommend the following: - please stop Diltiazem 120 and fractionate into Diltiazem 30 q6 hours and uptitrate as needed for elevated rates. Specifically, consider increasing to Diltiazem 45 q6 if his heart rates are 130's+. Although I suspect as patient recovers from acute infectious insult, rates will also improve. - CHADSVASC 5 would start anticoagulation. Consider heparin gtt if further procedure is planned for, or could start DOAC if not. Defer this to surgery. - would discontinue Amlodipine 10 mg. It seems that this medication was planned to be discontinued when the Diltiazem was initiated but due to medication reconciliation issues at last discharge this was not done. Discontinuing the Amlodipine will also allow more blood pressure room for titration ofDiltiazem/ BB. Case discussed with Dr. Anderson, attending physician. Sharri Sparks MD Utility Agent Associated attestation - Rhea Anderson MD - 04/23/2024 4:24 PM EDT I saw and evaluated the patient with Fam Gee and agree with the assessment and plan documented below. Rhea Anderson MD Advanced Heart Disease and Pulmonary Hypertension * Plan of Care - Elle Finn RN - 04/22/2024 6:42 AM EDT OUTCOME EVALUATION NOTE: OUTCOME SUMMARY: Admitted from PACU @2022. Drowsy. Disoriented to time, place and situation. More awake around 0230,felt hungry, ordered soup from distribution. Reported 8/10 pain on the RLE BKA stump, PRN Dilaudid 4mg given PO. Brief intermittent non- sustained desaturation into the 80% on 2L/NC noted while sleeping, was switched to a nasal cup as patient is a mouth breather to keep Sp02>90s. Right BKA dressing with moderate amount of serous drainage. Was switched to a regular diet, was able to tolerate water, broth and soup without any nausea or emesis. Telemetry NOTE: S: denied chest pain O: patient is in NSR A: patient is tolerating present rhythm P: will continue remote telemetry until further order. PLAN MOVING FORWARD: Pain management. HD MWF. Continue IV ABx. Continue remote telemetry. PT/OT. INDIVIDUALIZED FALL PREVENTION INTERVENTIONS: Patient-specific fall risk factors per assessment: [current deficits]: bilateral BKA, POD #0, confusion, tethering lines Assistance [level of assistance required for transfers and ambulation]: 2 assist Supervision [direct monitoring required during toileting and ADLs]: hands on Surveillance [continuous indirect monitoring]: purposeful rounding, call mitchell within reach Patient-specific fall prevention interventions for sensory deficits provided, if applicable: YES. Light adjusted for tasks/safety CPG GOAL OUTCOME EVALUATION: Problem: Adult Inpatient Plan of Care Goal: Plan of Care Review Outcome: Ongoing (Interventions Implemented as Appropriate) Goal: Patient-Specific Goal (Individualized) Outcome: Ongoing (Interventions Implemented as Appropriate) Goal: Absence of Hospital-Acquired Illness or Injury Outcome: Ongoing (Interventions Implemented as Appropriate) Goal: Optimal Comfort and Wellbeing Outcome: Ongoing (Interventions Implemented as Appropriate) Goal: Readiness for Transition of Care Outcome: Ongoing (Interventions Implemented as Appropriate) Problem: Fall Injury Risk Goal: Absence of Fall and Fall-Related Injury Outcome: Ongoing (Interventions Implemented as Appropriate) Problem: Adjustment to Amputation Goal: Optimal Adjustment to Amputation Outcome: Ongoing (Interventions Implemented as Appropriate) Problem: BADL (Basic Activities of Daily Living) Impairment (Lower Extremity Amputation) Goal: Optimal Safe BADL Performance Outcome: Ongoing (Interventions Implemented as Appropriate) Problem: IADL (Instrumental Activities of Daily Living) Impairment (Lower Extremity Amputation) Goal: Optimal Safe IADL Performance Outcome: Ongoing (Interventions Implemented as Appropriate) Problem: Lower Limb Care (Lower Extremity Amputation) Goal: Effective Lower Limb Care Outcome: Ongoing (Interventions Implemented as Appropriate) Problem: Mobility Impairment (Lower Extremity Amputation) Goal: Optimal Mobility [place] and Safety Outcome: Ongoing (Interventions Implemented as Appropriate) Problem: Pain and Hypersensitivity (Lower Extremity Amputation) Goal: Acceptable Pain/Hypersensitivity Control Outcome: Ongoing (Interventions Implemented as Appropriate) Problem: Prosthetic Use and Management (Lower Extremity Amputation) Goal: Effective Prosthesis Use and Management Outcome: Ongoing (Interventions Implemented as Appropriate) Problem: Confusion Acute Goal: Optimal Cognitive Function Outcome: Ongoing (Interventions Implemented as Appropriate) * Consult Note - Dariana Albarado APRN - 04/21/2024 6:12 PM EDT PATIENT: Gerson Bruner : 1965 NEPHROLOGY CONSULT NOTE Consulted for ESRD and hemodialysis management ESRD patient on hemodialysis. Presented to the ED yesterday evening after an appointment with woundcare where he was found to be febrile with worsening wound on right heal. Plan for heel debridementtoday. PE: General: Alert, comfortable. Cooperative with exam. HEENT: Sclera white. Mucous membranes moist. No lymphadenopathy. CV: S1 and S2. HR regular. Resp: Lungs clear with no crackles or wheezes. Respirations non labored. Abd: Soft. + BS. No bruit. Non tender. Ext: Warm. No cyanosis. No edema. Dressing on right foot. Skin: Warm and dry to touch. No rash. Neuro: Alert and oriented x4, no focal deficit. Psych: Mood appropriate Assessment and Recommendations: Gerson Bruner is a 58 y.o. male with worsening wound on right heel with plans for surgical debridement. Nephrology consulted for dialysis management. ESRD on hemodialysis- Patient seen and evaluated multiple times while on dialysis for management ofblood pressure and ultrafiltration. He also continued to be febrile. Dialysis run shortened to accommodate OR time. Will plan for full treatment tomorrow. MEDICATIONS: [Transfer Hold] sodium chloride 0.9 % (flush) 5 mL Intravenous BID [Transfer Hold] heparin (porcine) 5,000 Units Subcutaneous 2 times per day acetaminophen 975 mg Oral Q6H PAULIE [Transfer Hold] aspirin EC 81 mg Oral Daily [Transfer Hold] atorvastatin 40 mg Oral QPM [Transfer Hold] insulin lispro 1-4 Units Subcutaneous Q4H PAULIE [Transfer Hold] pantoprazole EC 40 mg Oral Daily [Transfer Hold] pregabalin 100 mg Oral BID [Transfer Hold] sevelamer carbonate 800 mg Oral TID WC [Transfer Hold] piperacillin-tazobactam 3.375 g Intravenous Q12H [Transfer Hold] amLODIPine 10 mg Oral Daily [Transfer Hold] carvediloL 12.5 mg Oral BID WC [Transfer Hold] dilTIAZem CD 120 mg Oral Daily Allergies Allergen Reactions Clindamycin Swelling. Gabapentin swelling Zoloft [Sertraline] Other reaction(s): Unsure PHYSICAL EXAM: Last value Temperature Temp: (!) 39.3 ??C (102.8 ??F) Heart Rate Heart Rate: 86 Blood Pressure BP: 158/68 Respiratory Rate Resp: 14 SpO2 SpO2: 93 % STUDIES: Labs: CBC: Recent Labs 04/21/24162304/20/24233104/20/24 193 WBC 19.8* 17.1* 17.0* HGB 9.4* 8.9* 8.3* PLATELET 348 340 347 Chemistry: Recent Labs 04/21/24162304/20/24233104/20/242216 NA 137 132* 132* K 4.6 5.1* Not Perf CL 97* 95* 97* CO2 21* 23 21* BUN 32* 42* 41* CREATININE 5.70* 7.05* 6.58* GLUCOSE 142 185 195 Recent Labs 04/21/24162304/20/24233104/20/24221604/20/24170803/14/2434803/13/2463203/13/24 0330 CALCIUM 8.8 8.7 8.5 < > 9.2 < > 9.7 MAGNESIUM 0.82 -- 0.83 -- -- -- 0.82 PHOS 4.7* -- 5.8* -- 5.6* < > Not Perf < > = values in this interval not displayed. LFT's: Recent Labs 04/20/24170803/14/2434803/13/2463203/13/24 0330 BILITOT <0.2* <0.2* <0.2* <0.2* BILIDIR -- -- -- 0.1 ALBUMIN 3.2 3.0* 3.3 3.1* ALKPHOS 210* 139* 181* 165* ALT 16 17 22 19 AST 16 14 15 12 Dariana Albarado APRN Section of Nephrology Pager [phone] Associated attestation - Jordan Sepulveda MD - 04/24/2024 3:08 PM EDT This patient was seen in conjunction with Dariana Albarado APRN. I performed the majority of this shared visit based on medical decision making. He was seen during dialysis, but the treatment was cut short to to facilitate debridement due to ORtime. He was very somnolent during HD, but his blood pressures were stable. I think the some of hiselevated blood pressures are not accurate since he was tensing his muscles during measurements. Will plan on full treatment on Wednesday. Jordan Sepulveda MD Nephrology Staff. * Initial Assessments - Lopez Herrera RN - 04/21/2024 5:15 PM EDTSummary: [facility]; [facility] restart referrals Office of Care Management Initial Assessment Lopez Herrera RN reviewed record and discussed patient with Care Team. Source of Information: Chart Review (Patient is in the OR. Unable to reach spouse/DPOAH Melissa Tang mobile [phone]. Information gathered [facility] 03/14/24 RNCM Initial Assessment.) Admitted From: Home Reason for Hospitalization: 58 y.o. 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 His BKA has been healing well. Presented to the ED this evening after visit to Wound Clinic where he was found to be febrile with interval worsening of a arge eschar on his right heel. Overall hemodynamically normalon RA. Febrile on arrival to 102F, appears diaphoretic and flushed. Leukocytosis to 18. Admit to Vascular Surgery for close monitoring. Marked and consented for RLE heel debridement. (From 04/20/24 Vas cular Surgery [facility]&P) Past medical History: Past Medical History: Diagnosis Date Anemia Chronic kidney disease CKD (chronic kidney disease) stage 4, GFR 15-29 ml/min Diabetes mellitus Herniation of lumbar intervertebral disc with radiculopathy 08/16/2015 L4-5 left Hypertension Hospitalizations Within the Past 30 Days: no previous admission in last 30 days Current Decision-Making Capacity: Self Advance Care Planning: Attempt Cardiopulmonary Resuscitation - Inpatient Received -Advanced Directive: Yes, on file Who is your DPOA-HC?: Spouse (DPOA1 is spouse Melissa Bruner [phone]; DPOA2 is daughter Lata Bruner [phone]) Current Coping/Education/Information Needs: Needs assessment Current Functional Ability: unable to assess Functional Status Prior to Admission: Independent (Manual wheelchair, off- loading boot) Prior ADLs & IADLs: Assistance Needed with ADLs & IADLs Home Environment: Lives with spouse Melissa. Accessibility Concerns:Lives in 2 story home where all needs are met on the first level. In the last 12 months, was there a time when you were not able to pay the mortgage or rent on time?: No In the past 12 months, how many times have you moved where you were living?: 1 At any time in the past 12 months, were you homeless or living in a custodial (including now)?: No In the past 12 months has the [employer], gas, oil, or water [employer] threatened to shut off services in your home?: No Within the past 12 months, you worried that your food would run out before you got the money to buymore.: Never true Within the past 12 months, the food you bought just didn't last and you didn't have money to get more.: Never true Resource / Environmental Concerns: Resource/Environmental Concerns: none Home Accessibility Concerns: stairs to enter home In the past 12 months, has lack of transportation kept you from medical appointments or from getting medications?: No In the past 12 months, has lack of transportation kept you from meetings, work, or from getting things needed for daily living?: No Current DME: wheelchair - manual, other (see comments) (Off-loading boot) Home Address listed as: [address] [facility] [address] Social & Family Supports: Extended Emergency Contact Information Primary Emergency Contact: Melissa Bruner Address: [address] [place] [address] [place] Relation: Spouse Current Care Provided by: self, spouse/significant other Provides Primary Care For: no one Caregiver if needed: spouse Quality of Family relationships: helpful, involved Community Resources being provided currently: clinic(s), homecare agency, outpatient hemodialysis (Receives primary care at [facility] ([place]); current [facility] client; current [facility] hemodialysis M/W/F 0600 client) Behavioral Health History: Anxiety, depression Substance Use/Abuse listed: Social History Tobacco Use Smoking Status Every Day Current packs/day: 0.00 Types: Cigarettes Last attempt to quit: 12/26/2018 Years since quittin.3 Smokeless Tobacco Never Tobacco Comments smoking a few a day Other Pertinent/Service Specific Information: Needs assessment Health/Prescription Coverage: Primary Insurance: MEDICARE Payor: MEDICARE / Plan: MEDICARE PART A & B / Product Type: *No Product type* / Secondary Insurance: N/A ONLY if patient has Medicare A&B - Does this patient have secondary insurance?: No ; Why not?: Unable to assess Prescription Coverage: Yes Preferred Pharmacy: [id number] - [place], [place] - [address] [facility] [address] [facility] [address] [address] Status: Patient is a : No Primary Care Provider listed: Ken Greer MD [phone] Patient/Caregiver Goals of Treatment: Wound care Potential Needs for Transition of Care: home health care Agency Referrals: [facility] [address] [place] [address] P: [phone] F: [phone] [facility] [address] [place] [address] Transportation: no concerns Transportation Anticipated: family or friend will provide (Spouse Melissa [phone]) Concerns to be Addressed: discharge planning Assessment: Patient is admitted to Vascular Surgery service for non healing left heel wound. Plan going forward: Care Management team will continue to follow and assist with discharge planing and coordination of care as indicated. * Op Note - Nestor Pool MD - 04/21/2024 4:59 PM EDT [facility] Operative Note Patient Name: Gerson Bruner : [id number] MR#: [id number] Case Date: 04/21/2024 Surgeon: Surgeons and Role: * Devendra Red MD - Primary * Nestor Pool MD - Resident - Assisting Preoperative diagnosis: right heel wound Postoperative diagnosis: right heel wound Procedure: RIGHT guillotine through-ankle amputation Findings: Right heel eschar unroofed with malodorous, boggy pus (sent for fluid culture). Purulencenoted to be tracking distally along sole of foot. Right guillotine below-knee amputation performed without complication. Anesthesia: General Estimated Blood Loss: 250 mL Specimens removed during surgery: Order Name Source Comment Collection Info Order Time SPECIMEN TO PATHOLOGY AMPUTATION right heal wound Right foot, ankle other 04/21/2024 5:35 PM Time specimen removed from patient: 5:35 PM Number of tissue samples (in container) 1 Drains: None Surgical Closure: Other Than Primary Closure - deep and superficial layers are left completely openduring original surgery Disposition: awakened from anesthesia, extubated and taken to the recovery room in a stable condition, having suffered no apparent untoward event. Condition: doing well without problems (Please see the Surgical Encounter Summary for any Implant and Specimen details pertinent to this patient.) HPI/Surgical Indications: 58M with history of longstanding IDDM, ESRD on HD MWF, TIA, and prior left BKA who presents to the operating room for RIGHT heel debridement, other procedures as indicated in the setting of fevers, chills, worsening pain, and evolving eschar over the right heel. Procedure Description: After informed consent was obtained the patient was brought back to the operating room and positioned supine on the OR table. Preoperative antibiotics were given. The RIGHT legwas prepped and draped in the usual sterile fashion using an iodine prep solution. A timeout was performed to correctly identify patient, laterality and intended procedure. The operation began with unroofing of the right heel eschar sharply using a #15 blade scalpel. Boggy, malodorous soft tissue was visualized and purulence was expressed. Purulence was sent for culture. The wound was noted to probe to calcaneal bone. The wound was probed with a Ngozi clamp and purulence was noted to track along the sole of the foot. Given the patient's fevers, leukocytosis, and evidence of probing to bone as well as purulence tracking along the foot, the patient's Melissa was called. Risks, benefits, alternatives, and natural history were discussed and the decision was made to perform an urgent RIGHT guillotine below-knee amputation for source control in the setting of sepsis and systemic illness. A tourniquet was applied and inflated to 200 mmHg. A Gigli saw was used to sharply divide the skin,soft tissues, muscle and bone just above the ankle. The specimen was then delivered off the table. There was brisk bleeding from the tibial vessels. Bleeding vessels were clamped with hemostats and ligated using 3-0 silk asbahy-pt-kijgv sutures. Additional hemostasis was obtained with Bovie electrocautery. The wound bed was copiously irrigated. The wound was then padded with saline-moistened gauze and wrapped with Kerlix. There were no intraoperative complications. All instrument and sponge counts were correct at the end of the case, and Dr. Red was present for the entire case. The patient was taken to the recoveryroom in stable condition. Surgical Infection Prevention Bundle Used? No Associated attestation - Devendra Red MD - 04/24/2024 6:57 AM EDT Attestation: Case Date: 04/21/2024 I was present and I participated during the entire procedure (does not need to include opening and closing). Initially unroofed heel eschar, which revealed large amounts of purulence that was sampled for culture. Then removed all eschar and infected tissue, which went down to calcaneous. There was a tunnel of purulence that tracked along the plantar aspect of the foot along the metatarsals all the way to the MTP joints. At this point, I called and spoke with the patient's and mother, explaining ourfindings. I explained that the most definitive way to obtain source control would be a guillotine amputation. I could unroof all the infection, however with calcaneal involvement and opening the entire sole of the foot, he would be unlikely to heal this wound given his CKD and DM. They therefore consented for us to proceed with a guillotine ankle amputation with plans to revise to a formal BKA once clean. Devendra Red MD 04/24/2024 * Plan of Care - Hudson Rojo, RN - 04/21/2024 10:53 AM EDT Problem: Adult Inpatient Plan of Care Goal: Plan of Care Review Outcome: Ongoing (Interventions Implemented as Appropriate) Goal: Patient-Specific Goal (Individualized) Outcome: Ongoing (Interventions Implemented as Appropriate) Goal: Absence of Hospital-Acquired Illness or Injury Outcome: Ongoing (Interventions Implemented as Appropriate) Goal: Optimal Comfort and Wellbeing Outcome: Ongoing (Interventions Implemented as Appropriate) Goal: Readiness for Transition of Care Outcome: Ongoing (Interventions Implemented as Appropriate) Problem: Fall Injury Risk Goal: Absence of Fall and Fall-Related Injury Outcome: Ongoing (Interventions Implemented as Appropriate) * Plan of Care - Paco Castro RN - 04/21/2024 5:38 AM EDT Pt arrived to unit ~0020, oriented to room. Pt slid self from stretcher to bed. A&Ox3-4, occasionally disoriented to time. HUSLIA. 2L NC. Pt reporting 8/ pain to the RLE, denies need for scheduledTylenol. notified and at the bedside to assess, no new orders. Fingersticks Q4 w/ sliding scale given per orders. NPO for possible OR today, 04/21. IVF infusing. Voiding via urinal. Bed alarm on for safety, call mitchell within reach. Problem: Adult Inpatient Plan of Care Goal: Plan of Care Review Outcome: Ongoing (Interventions Implemented as Appropriate) Goal: Patient-Specific Goal (Individualized) Outcome: Ongoing (Interventions Implemented as Appropriate) Goal: Absence of Hospital-Acquired Illness or Injury Outcome: Ongoing (Interventions Implemented as Appropriate) Goal: Optimal Comfort and Wellbeing Outcome: Ongoing (Interventions Implemented as Appropriate) Goal: Readiness for Transition of Care Outcome: Ongoing (Interventions Implemented as Appropriate) Problem: Fall Injury Risk Goal: Absence of Fall and Fall-Related Injury Outcome: Ongoing (Interventions Implemented as Appropriate) documented in this encounter Plan of Treatment Pending Results Name Type Priority Associated Diagnoses Date /Time ABORH Recheck Status Blood Bank Routine 03/26 7:56 PM EDT Scheduled Orders Name Type Priority Associated Diagnoses Orde r Schedule ABORH Recheck Status Blood Bank Routine One Time for 1 Occurrences starting 04/21/2024 until 04/21/2024 Scheduled Referrals Name Type Priority Associated Diagnoses Orde r Schedule Referral to Home Health Outpatient Referral Routine Sepsis with acute organ dysfunction, due to unspecified organism, unspecified organ dysfunction type, unspecified whether septic shock present Non-healing wound of right heel Ordered: 04/29/2024 documented as of this encounter Procedures Procedure Name Priority Date/Time Associated Diagnosis Comments POCT GLUCOSE Routine 04/29/2024 11:53 AM EDT POCT GLUCOSE Routine 04/29/2024 7:58 AM EDT HEMOGRAM Routine 04/29/2024 6:20 AM EDT DIFFERENTIAL, AUTOMATED Routine 04/29/2024 6:20 AM EDT CBC (WITH DIFF) Routine 04/29/2024 6:20 AM EDT PHOSPHORUS Routine 04/29/2024 6:20 AM EDT MAGNESIUM Routine 04/29/2024 6:20 AM EDT BASIC METABOLIC PANEL Routine 04/29/2024 6:20 AM EDT POCT GLUCOSE Routine 04/29/2024 5:23 AM EDT POCT GLUCOSE Routine 04/28/2024 10:57 PM EDT POCT GLUCOSE Routine 04/28/2024 8:28 PM EDT POCT GLUCOSE Routine 04/28/2024 3:54 PM EDT POCT GLUCOSE Routine 04/28/2024 11:32 AM EDT POCT GLUCOSE Routine 04/28/2024 10:04 AM EDT POCT GLUCOSE Routine 04/28/2024 8:02 AM EDT HEMOGRAM Routine 04/28/2024 5:48 AM EDT DIFFERENTIAL, AUTOMATED Routine 04/28/2024 5:48 AM EDT CBC (WITH DIFF) Routine 04/28/2024 5:48 AM EDT PHOSPHORUS Routine 04/28/2024 5:48 AM EDT MAGNESIUM Routine 04/28/2024 5:48 AM EDT BASIC METABOLIC PANEL Routine 04/28/2024 5:48 AM EDT POCT GLUCOSE Routine 04/27/2024 11:30 PM EDT POCT GLUCOSE Routine 04/27/2024 8:12 PM EDT POCT GLUCOSE Routine 04/27/2024 4:56 PM EDT POCT GLUCOSE Routine 04/27/2024 12:13 PM EDT POCT GLUCOSE Routine 04/27/2024 6:44 AM EDT HEMOGRAM Routine 04/27/2024 5:47 AM EDT DIFFERENTIAL, AUTOMATED Routine 04/27/2024 5:47 AM EDT CBC (WITH DIFF) Routine 04/27/2024 5:47 AM EDT PHOSPHORUS Routine 04/27/2024 5:47 AM EDT MAGNESIUM Routine 04/27/2024 5:47 AM EDT BASIC METABOLIC PANEL Routine 04/27/2024 5:47 AM EDT POCT GLUCOSE Routine 04/27/2024 3:59 AM EDT POCT GLUCOSE Routine 04/26/2024 11:32 PM EDT POCT GLUCOSE Routine 04/26/2024 8:28 PM EDT POCT GLUCOSE Routine 04/26/2024 5:09 PM EDT POCT GLUCOSE Routine 04/26/2024 11:51 AM EDT POCT GLUCOSE Routine 04/26/2024 7:30 AM EDT VANCOMYCIN LEVEL, RANDOM Timed 04/26/2024 4:58 AM EDT HEMOGRAM Routine 04/26/2024 4:58 AM EDT DIFFERENTIAL, AUTOMATED Routine 04/26/2024 4:58 AM EDT CBC (WITH DIFF) Routine 04/26/2024 4:58 AM EDT PHOSPHORUS Routine 04/26/2024 4:58 AM EDT MAGNESIUM Routine 04/26/2024 4:58 AM EDT BASIC METABOLIC PANEL Routine 04/26/2024 4:58 AM EDT POCT GLUCOSE Routine 04/26/2024 4:24 AM EDT POCT GLUCOSE Routine 04/25/2024 11:33 PM EDT POCT GLUCOSE Routine 04/25/2024 6:53 PM EDT POCT GLUCOSE Routine 04/25/2024 6:10 PM EDT POCT GLUCOSE Routine 04/25/2024 5:46 PM EDT SPECIMEN TO PATHOLOGY Routine 04/25/2024 5:02 PM EDT SURGICAL PATHOLOGY REPORT Routine 04/25/2024 5:01 PM EDT Amputation Low Leg, Second Closure ([id number]) Yes 04/25/2024 3:55 PM EDT infected right heal EKG 12-LEAD STAT 04/25/2024 12:38 PM EDT Hyperkalemia POCT GLUCOSE Routine 04/25/2024 11:36 AM EDT AMPUTATION, BELOW-KNEE, SECONDARY CLOSURE OR SCAR REVISION Routine 04/25/2024 10:41 AM EDT URINALYSIS MICROSCOPIC EXAM STAT 04/25/2024 9:32 AM EDT URINALYSIS WITH REFLEX CULTURE STAT 04/25/2024 9:32 AM EDT HEMOGRAM Routine 04/25/2024 9:23 AM EDT DIFFERENTIAL, AUTOMATED Routine 04/25/2024 9:23 AM EDT CBC (WITH DIFF) Routine 04/25/2024 9:23 AM EDT BASIC METABOLIC PANEL Routine 04/25/2024 9:23 AM EDT POCT GLUCOSE Routine 04/25/2024 7:56 AM EDT TYPE AND SCREEN VALIDITY Routine 04/25/2024 5:29 AM EDT ABORH RECHECK STATUS Routine 04/25/2024 5:29 AM EDT TYPE AND SCREEN ([facility]/CGP/CHASE) Routine 04/25/2024 5:29 AM EDT PHOSPHORUS Routine 04/25/2024 5:29 AM EDT MAGNESIUM Routine 04/25/2024 5:29 AM EDT POCT GLUCOSE Routine 04/25/2024 4:19 AM EDT POCT GLUCOSE Routine 04/25/2024 12:08 AM EDT POCT GLUCOSE Routine 04/24/2024 8:03 PM EDT POCT GLUCOSE Routine 04/24/2024 5:12 PM EDT POCT GLUCOSE Routine 04/24/2024 3:31 PM EDT IRON AND TIBC Routine 04/24/2024 3:15 PM EDT FERRITIN Routine 04/24/2024 3:15 PM EDT EKG 12-LEAD STAT 04/24/2024 12:47 PM EDT Hyperkalemia POCT GLUCOSE Routine 04/24/2024 11:58 AM EDT POCT GLUCOSE Routine 04/24/2024 7:36 AM EDT VANCOMYCIN LEVEL, RANDOM Timed 04/24/2024 5:21 AM EDT HEMOGRAM Routine 04/24/2024 5:21 AM EDT DIFFERENTIAL, AUTOMATED Routine 04/24/2024 5:21 AM EDT CBC (WITH DIFF) Routine 04/24/2024 5:21 AM EDT PHOSPHORUS Routine 04/24/2024 5:21 AM EDT MAGNESIUM Routine 04/24/2024 5:21 AM EDT BASIC METABOLIC PANEL Routine 04/24/2024 5:21 AM EDT POCT GLUCOSE Routine 04/24/2024 4:04 AM EDT POCT GLUCOSE Routine 04/24/2024 1:00 AM EDT POCT GLUCOSE Routine 04/23/2024 8:43 PM EDT POCT GLUCOSE Routine 04/23/2024 4:37 PM EDT POCT GLUCOSE Routine 04/23/2024 11:57 AM EDT ECHO COMPLETE Routine 04/23/2024 11:36 AM EDT Irregular heart beat POCT GLUCOSE Routine 04/23/2024 7:38 AM EDT HEMOGRAM Routine 04/23/2024 4:22 AM EDT DIFFERENTIAL, AUTOMATED Routine 04/23/2024 4:22 AM EDT CBC (WITH DIFF) Routine 04/23/2024 4:22 AM EDT PHOSPHORUS Routine 04/23/2024 4:22 AM EDT MAGNESIUM Routine 04/23/2024 4:22 AM EDT BASIC METABOLIC PANEL Routine 04/23/2024 4:22 AM EDT POCT GLUCOSE Routine 04/23/2024 4:21 AM EDT POCT GLUCOSE Routine 04/23/2024 2:45 AM EDT POCT GLUCOSE Routine 04/22/2024 11:54 PM EDT POCT GLUCOSE Routine 04/22/2024 10:10 PM EDT POCT GLUCOSE Routine 04/22/2024 8:19 PM EDT POCT GLUCOSE Routine 04/22/2024 4:48 PM EDT VANCOMYCIN LEVEL, RANDOM Routine 04/22/2024 12:24 PM EDT POCT GLUCOSE Routine 04/22/2024 12:09 PM EDT EKG 12-LEAD Routine 04/22/2024 10:51 AM EDT Irregular heart beat POCT GLUCOSE Routine 04/22/2024 7:48 AM EDT POCT GLUCOSE Routine 04/22/2024 4:41 AM EDT SCAN, PERIPHERAL BLOOD Routine 4:36 AM EDT HEMOGRAM Routine 04/22/2024 4:36 AM EDT DIFFERENTIAL, AUTOMATED Routine 04/22/2024 4:36 AM EDT CBC (WITH DIFF) Routine 04/22/2024 4:36 AM EDT PHOSPHORUS Routine 04/22/2024 4:36 AM EDT MAGNESIUM Routine 04/22/2024 4:36 AM EDT BASIC METABOLIC PANEL Routine 04/22/2024 4:36 AM EDT POCT GLUCOSE Routine 04/21/2024 11:01 PM EDT TYPE AND SCREEN VALIDITY Routine 04/21/2024 7:56 PM EDT TYPE AND SCREEN ([facility]/CGP/CHASE) Routine 04/21/2024 7:56 PM EDT POCT GLUCOSE Routine 04/21/2024 7:30 PM EDT AMPUTATION, ANKLE Routine 04/21/2024 5:5 6 PM EDT POCT GLUCOSE Routine 04/21/2024 5:36 PM EDT SURGICAL PATHOLOGY REPORT Routine 04/21/2024 5:35 PM EDT SPECIMEN TO PATHOLOGY Routine 04/21/2024 5:35 PM EDT ANAEROBIC CULTURE STAT 04/21/2024 5:0 7 PM EDT HC GRAM STAIN FOR BACTERIA STAT 04/21/2024 5:07 PM EDT ABSCESS/WOUND ASPIRATE CULTURE STAT 04/21/2024 5:07 PM EDT Amputation Ankle-Tib/Fib Malleoli ([id number]) 04/21/2024 4:38 PM EDT right heal wound Debridement, Skin, Sub-Q Tissue ([id number]) 04/21/2024 4:38 PM EDT right heal wound HEMOGRAM STAT 04/21/2024 4:24 PM EDT PHOSPHORUS STAT 04/21/2024 4:24 PM EDT MAGNESIUM STAT 04/21/2024 4:24 PM EDT BASIC METABOLIC PANEL STAT 04/21/2024 4:24 PM EDT POCT GLUCOSE Routine 04/21/2024 4:07 PM EDT POCT GLUCOSE Routine 04/21/2024 11:25 AM EDT POCT GLUCOSE Routine 04/21/2024 7:51 AM EDT VANCOMYCIN LEVEL, RANDOM Timed 04/21/2024 7:39 AM EDT LAVENDER TUBE HOLD Timed 04/21/2024 7: 39 AM EDT DEBRIDEMENT SKIN AND SUBCU, LOWER EXTREMITY Routine 04/21/2024 7:27 AM EDT POCT GLUCOSE Routine 04/21/2024 4:13 AM EDT POCT GLUCOSE Routine 04/21/2024 1:54 AM EDT POCT GLUCOSE Routine 04/20/2024 11:59 PM EDT BLOOD GAS VENOUS POC Routine 04/20/2024 11:34 PM EDT HEMOGRAM STAT 04/20/2024 11:32 PM EDT DIFFERENTIAL, AUTOMATED STAT 04/20/2024 11:32 PM EDT CBC (WITH DIFF) STAT 04/20/2024 11:32 PM EDT BASIC METABOLIC PANEL STAT 04/20/2024 11:32 PM EDT POCT GLUCOSE Routine 04/20/2024 11:07 PM EDT PHOSPHORUS Routine 04/20/2024 10:17 PM EDT MAGNESIUM Timed 04/20/2024 10:17 PM EDT BASIC METABOLIC PANEL Timed 04/20/2024 10:17 PM EDT POCT GLUCOSE Routine 04/20/2024 9:56 PM EDT POCT GLUCOSE Routine 04/20/2024 7:40 PM EDT HEMOGRAM Timed 04/20/2024 7:39 PM EDT DIFFERENTIAL, AUTOMATED Timed 04/20/2024 7:39 PM EDT CBC (WITH DIFF) Timed 04/20/2024 7:39 PM EDT EKG 12-LEAD STAT 04/20/2024 6:34 PM EDT BLOOD GAS VENOUS POC Routine 04/20/2024 5:53 PM EDT XR CHEST ONE VIEW STAT 04/20/2024 5:4 4 PM EDT XR FOOT MIN 3 VIEWS RIGHT STAT 04/20/2024 5:44 PM EDT XR ANKLE MIN 3 VIEWS RIGHT STAT 04/20/2024 5:44 PM EDT BRYSON TUBE HOLD STAT 04/20/2024 5:09 PM EDT SCAN, PERIPHERAL BLOOD STAT 5:09 PM EDT HEMOGRAM STAT 04/20/2024 5:09 PM EDT DIFFERENTIAL, AUTOMATED STAT 04/20/2024 5:09 PM EDT GOLD TUBE HOLD STAT 04/20/2024 5:09 PM EDT BLUE TUBE HOLD STAT 04/20/2024 5:09 PM EDT CBC (WITH DIFF) STAT 04/20/2024 5:09 PM EDT COMPREHENSIVE METABOLIC PANEL STAT 04/20/2024 5:09 PM EDT BLOOD CULTURE STAT 04/20/2024 5:08 PM EDT BLOOD CULTURE STAT 04/20/2024 5:08 PM EDT POCT GLUCOSE Routine 04/20/2024 4:51 PM EDT documented in this encounter Results * (ABNORMAL) POCT Glucose (04/29/2024 11:53 AM EDT) [facility] Glucose, POC 234(H) 65 - 199 mg/dL [facility] Comment: Supplemental ranges: <140 mg/dL before meals <180 mg/dL all other times of the day Blood 04/29/2024 11:5 3 AM EDT 04/29/2024 11:53 AM EDT Kristi Renae MD POINT OF CARE TEST O RDERABLES Performing Organization Address [facility] Co de Phone Number [facility] [place] [address] * POCT Glucose (04/29/2024 7:58 AM EDT) Glucose, POC 190 65 - 199 mg/dL [facility] Comment: Supplemental ranges: <140 mg/dL before meals <180 mg/dL all other times of the day Blood 04/29/2024 7:58 AM EDT 04/29/2024 7:58 AM EDT Kristi Renae MD POINT OF CARE TEST O RDERAKEREN Performing Organization Address City/[facility] Co de Phone Number [facility] [place] [address] * (ABNORMAL) Differential, Automated (04/29/2024 6:20 AM EDT) Neutrophil % 53.9 % [facility] Neutrophil Absolute 4.67 1.70 - 6.10 x10(3)/mc L [facility] Lymph % 27.5 % [facility] Lymphocytes Abs 2.4 0.9 - 3.2 x10(3)/mc L [facility] Monocyte % 12.9 % [facility] Monocyte Abs 1.1(H) 0.3 - 0.9 x10(3)/mc L [facility] Eos % 4.4 % [facility] Eosinophils Abs 0.4 0.0 - 0.4 x10(3)/mc L [facility] Basophil % 0.8 % [facility] Baso Absolute 0.1 0.0 - 0.1 x10(3)/ L [facility] Immature Gran % 0.50 % [facility] Comment: Immature granulocytes(IG's)percentage and absolute count will include metamyelocytes, myelocytes, and promyelocytes. Blood smears from CBCs yielding IG's will be scanned manually for concordance. If this scan disagrees with the automated IG or if promyelocytes are noted, a manual differential will be performed. Immature Gran Absolute 0.04 0.00 - 0.04 x10(3)/ L [facility] Blood 04/29/2024 6:20 AM EDT 04/29/2024 6:43 AM EDT Narrative Resulting Agency Comment Spec In Lab Russell Cohen MD HEMATOLOGY ORDER FRANSISCO [facility] [place] [place] [address] * (ABNORMAL) Hemogram (04/29/2024 6:20 AM EDT) White Blood Cell 8.7 4.0 - 9.5 x10(3)/[facility] Red Blood Cell 3.09(L) 4.58 - 5.54 x10(6)/ L [facility] Hemoglobin 8.8(L) 13.7 - 16.5 g/dL [facility] Hematocrit 28.5(L) 40.5 - 48.5 % [facility] Mean Cell Volume 92.2 82.9 - 93.1 fL [facility] Mean Cell Hemoglobin 28.5 27.5 - 32.1 pg [facility] Mean Cell Hemoglobin Concentration 30.9(L) 32.0 - 35.7 g/dL [facility] Platelet 438(H) 145 - 357 x10(3)/[facility] RDW Standard Deviation 56.5(H) 36.0 - 45.0 fL [facility] RDW coefficient of variation 17.0(H) 11.4 - 13.8 % [facility] Mean Platelet Volume 11.1 7.6 - 12.9 fL [facility] NRBC% auto 0.0 % [facility] NRBC Absolute 0.000 0.000 - 0.000 x10(3)/mc L [facility] Blood 04/29/2024 6:20 AM EDT 04/29/2024 6:43 AM EDT Narrative Resulting Agency Comment Spec In Lab Russell Cohen MD HEMATOLOGY ORDER FRANSISCO [facility] [place] [address] * (ABNORMAL) Basic Metabolic Panel (non-fasting) (04/29/2024 6:20 AM EDT) Glucose 235(H) 65 - 199 mg/dL [facility] Comment:Diabetes: >=200 mg/d L plus symptoms Blood Urea Nitrogen 33(H) 10 - 20 mg/dL [facility] Creatinine 6.41(H) 0.80 - 1.50 mg/dL [facility] Comment:result rechecked-tmp Sodium 138 135 - 145 mmol/L [facility] Potassium 5.3(H) 3.5 - 5.0 mmol/L [facility] Comment: Please note: ??Patients with WBC >100,000 may have falsely elevated Potassium levels. ??For accurate Potassium quantification in these patients send serum separator tube (gold top) for subsequent determinations. ??Contact the Clinical Chemistry Laboratory if there are any questions. Chloride 100 98 - 107 mmol/L [facility] Carbon Dioxide 24 22 - 31 mmol/L [facility] Anion Gap 14 5 - 15 mmol/L [facility] Calcium 9.4 8.5 - 10.5 mg/dL [facility] Est Glomerular Filtration Rate 9(L) >=60 mL/min/1. 73 m?? [facility] Comment: This patient's estimated GFR was [...] and symptoms in addition to eGFR. Blood 04/29/2024 6:20 AM EDT 04/29/2024 6:43 AM EDT Narrative Resulting Agency Comment Spec In Lab Kristi Renae MD CHEMISTRY ORDERABLES Performing Organization Address [facility] Co de Phone Number [facility] [place] [address] * (ABNORMAL) Phosphorus (04/29/2024 6:20 AM EDT) Phosphorus 6.2(H) 2.5 - 4.5 mg/dL [facility] Blood 04/29/2024 6:20 AM EDT 04/29/2024 6:43 AM EDT Narrative Resulting Agency Comment Spec In Lab Kristi Renae MD CHEMISTRY ORDERABLES Performing Organization Address [facility] Co de Phone Number [facility] [place] [address] * Magnesium (04/29/2024 6:20 AM EDT) Magnesium 0.90 0.69 - 1.07 mmol/L [facility] Blood 04/29/2024 6:20 AM EDT 04/29/2024 6:43 AM EDT Narrative Resulting Agency Comment Spec In Lab Kristi Renae MD CHEMISTRY ORDERABLES Performing Organization Address City/[facility] Co de Phone Number [facility] [place] [address] * (ABNORMAL) POCT Glucose (04/29/2024 5:23 AM EDT) Glucose, POC 247(H) 65 - 199 mg/dL [facility] Comment: Supplemental ranges: <140 mg/dL before meals <180 mg/dL all other times of the day Blood 04/29/2024 5:23 AM EDT 04/29/2024 5:23 AM EDT Kristi Renae MD POINT OF CARE TEST O CARMELITA Performing Organization Address [facility] Co de Phone Number [facility] [place] [address] * (ABNORMAL) POCT Glucose (04/28/2024 10:57 PM EDT) Glucose, POC 206(H) 65 - 199 mg/dL [facility] Comment: Supplemental ranges: <140 mg/dL before meals <180 mg/dL all other times of the day Blood 04/28/2024 10:5 7 PM EDT 04/28/2024 10:57 PM EDT Kristi Renae MD POINT OF CARE TEST O ADITIERAKEREN Performing Organization Address [facility] Co de Phone Number [facility] [place] [address] * POCT Glucose (04/28/2024 8:28 PM EDT) Glucose, POC 155 65 - 199 mg/dL [facility] Comment: Supplemental ranges: <140 mg/dL before meals <180 mg/dL all other times of the day Blood 04/28/2024 8:28 PM EDT 04/28/2024 8:28 PM EDT Kristi Renae MD POINT OF CARE TEST O RDERAKEREN [facility] [place] [address] * (ABNORMAL) POCT Glucose (04/28/2024 3:54 PM EDT) Glucose, POC 211(H) 65 - 199 mg/dL [facility] Comment: Supplemental ranges: <140 mg/dL before meals <180 mg/dL all other times of the day Blood 04/28/2024 3:54 PM EDT 04/28/2024 3:54 PM EDT Kristi Renae MD POINT OF CARE TEST O RDERAKEREN Performing Organization Address [facility] Co de Phone Number [facility] [place] [address] * POCT Glucose (04/28/2024 11:32 AM EDT) Glucose, POC 193 65 - 199 mg/dL [facility] Comment: Supplemental ranges: <140 mg/dL before meals <180 mg/dL all other times of the day Blood 04/28/2024 11:3 2 AM EDT 04/28/2024 11:32 AM EDT Kristi Renae MD POINT OF CARE TEST O CARMELITA Performing Organization Address [facility] Co de Phone Number [facility] [place] [address] * POCT Glucose (04/28/2024 10:04 AM EDT) Glucose, POC 196 65 - 199 mg/dL [facility] Comment: Supplemental ranges: <140 mg/dL before meals <180 mg/dL all other times of the day Blood 04/28/2024 10:0 4 AM EDT 04/28/2024 10:04 AM EDT Kristi Renae MD POINT OF CARE TEST O RDERAKEREN [facility] [address] * (ABNORMAL) POCT Glucose (04/28/2024 8:02 AM EDT) Pathologist [facility] Glucose, POC 294(H) 65 - 199 mg/dL [facility] Comment: Supplemental ranges: <140 mg/dL before meals <180 mg/dL all other times of the day Blood 04/28/2024 8:02 AM EDT 04/28/2024 8:02 AM EDT Kristi Renae MD POINT OF CARE TEST O RDERABLES [facility] [address] * Differential, Automated (04/28/2024 5:48 AM EDT) [facility] Neutrophil % 63.2 % [facility] Neutrophil Absolute 5.80 1.70 - 6.10 x10(3)/[facility] Lymph % 21.0 % [facility] Lymphocytes Abs 1.9 0.9 - 3.2 x10(3)/[facility] Monocyte % 10.1 % [facility] Monocyte Abs 0.9 0.3 - 0.9 x10(3)/[facility] Eos % 4.5 % [facility] Eosinophils Abs 0.4 0.0 - 0.4 x10(3)/[facility] Basophil % 0.8 % [facility] Baso Absolute 0.1 0.0 - 0.1 x10(3)/[facility] Immature Gran % 0.40 % [facility] Comment: Immature granulocytes(IG's)percentage and absolute count will include metamyelocytes, myelocytes, and promyelocytes. Blood smears from CBCs yielding IG's will be scanned manually for concordance. If this scan disagrees with the automated IG or if promyelocytes are noted, a manual differential will be performed. Immature Gran Absolute 0.04 0.00 - 0.04 x10(3)/[facility] Blood 04/28/2024 5:48 AM EDT 04/28/2024 5:53 AM EDT Narrative Resulting Agency Comment Spec In Lab Russell Cohen MD HEMATOLOGY ORDER FRANSISCO [facility] [place] [address] * (ABNORMAL) Hemogram (04/28/2024 5:48 AM EDT) White Blood Cell 9.2 4.0 - 9.5 x10(3)/[facility] Red Blood Cell 3.16(L) 4.58 - 5.54 x10(6)/[facility] Hemoglobin 8.6(L) 13.7 - 16.5 g/dL [facility] Hematocrit 28.8(L) 40.5 - 48.5 % [facility] Mean Cell Volume 91.1 82.9 - 93.1 [facility] Mean Cell Hemoglobin 27.2(L) 27.5 - 32.1 pg [facility] Mean Cell Hemoglobin Concentration 29.9(L) 32.0 - 35.7 g/dL [facility] Platelet 458(H) 145 - 357 x10(3)/[facility] RDW Standard Deviation 56.3(H) 36.0 - 45.0 [facility] RDW coefficient of variation 17.1(H) 11.4 - 13.8 % [facility] Mean Platelet Volume 10.9 7.6 - 12.9 [facility] NRBC% auto 0.0 % [facility] NRBC Absolute 0.000 0.000 - 0.000 x10(3)/[facility] Blood 04/28/2024 5:48 AM EDT 04/28/2024 5:53 AM EDT Narrative Resulting Agency Comment Spec In Lab Russell Cohen MD HEMATOLOGY ORDER FRANSISCO [facility] [place] [address] * (ABNORMAL) Basic Metabolic Panel (non-fasting) (04/28/2024 5:48 AM EDT) Glucose 251(H) 65 - 199 mg/dL [facility] Comment:Diabetes: >=200 mg/d L plus symptoms Blood Urea Nitrogen 46(H) 10 - 20 mg/dL [facility] Creatinine 8.27(H) 0.80 - 1.50 mg/dL [facility] Comment:result rechecked-AR Sodium 136 135 - 145 mmol/L [facility] Potassium 5.6(H) 3.5 - 5.0 mmol/L [facility] Comment: Please note: ??Patients with WBC >100,000 may have falsely elevated Potassium levels. ??For accurate Potassium quantification in these patients send serum separator tube (gold top) for subsequent determinations. ??Contact the Clinical Chemistry Laboratory if there are any questions. Chloride 97(L) 98 - 107 mmol/L [facility] Carbon Dioxide 22 22 - 31 mmol/L [facility] Anion Gap 17(H) 5 - 15 mmol/L [facility] Calcium 9.4 8.5 - 10.5 mg/dL [facility] Est Glomerular Filtration Rate 7(L) >=60 mL/min/1. 73 m?? [facility] Comment: This patient's estimated GFR was [...] and symptoms in addition to eGFR. Blood 04/28/2024 5:48 AM EDT 04/28/2024 5:53 AM EDT Narrative Resulting Agency Comment Spec In Lab Kristi Renae MD CHEMISTRY ORDERABLES Performing Organization Address City/[facility]/ZIP Co de Phone Number [facility] [address] * (ABNORMAL) Phosphorus (04/28/2024 5:48 AM EDT) Phosphorus 8.3(H) 2.5 - 4.5 mg/dL [facility] Blood 04/28/2024 5:48 AM EDT 04/28/2024 5:53 AM EDT Narrative Resulting Agency Comment Spec In Lab Kristi Renae MD CHEMISTRY ORDERABLES Performing Organization Address City/[facility]/ZIP Co de Phone Number [facility] [place] [address] * Magnesium (04/28/2024 5:48 AM EDT) Magnesium 0.89 0.69 - 1.07 mmol/L [facility] Blood 04/28/2024 5:48 AM EDT 04/28/2024 5:53 AM EDT Narrative Resulting Agency Comment Spec In Lab Kristi Renae MD CHEMISTRY ORDERABLES Performing Organization Address [facility] Co de Phone Number [facility] [place] [address] * (ABNORMAL) POCT Glucose (04/27/2024 11:30 PM EDT) Glucose, POC 207(H) 65 - 199 mg/dL [facility] Comment: Supplemental ranges: <140 mg/dL before meals <180 mg/dL all other times of the day Blood 04/27/2024 11:3 0 PM EDT 04/27/2024 11:30 PM EDT Kristi Renae MD POINT OF CARE TEST O CARMELITA [facility] [address] * POCT Glucose (04/27/2024 8:12 PM EDT) Glucose, POC 198 65 - 199 mg/dL [facility] Comment: Supplemental ranges: <140 mg/dL before meals <180 mg/dL all other times of the day Blood 04/27/2024 8:12 PM EDT 04/27/2024 8:12 PM EDT Kristi Renae MD POINT OF CARE TEST O ADITIERAKEREN Performing Organization Address City/[facility]/ZIP Co de Phone Number [facility] [place] [address] * (ABNORMAL) POCT Glucose (04/27/2024 4:56 PM EDT) Glucose, POC 226(H) 65 - 199 mg/dL [facility] Comment: Supplemental ranges: <140 mg/dL before meals <180 mg/dL all other times of the day Blood 04/27/2024 4:56 PM EDT 04/27/2024 4:56 PM EDT Kirsti Renae MD POINT OF CARE TEST O RDERAKEREN [facility] [address] * POCT Glucose (04/27/2024 12:13 PM EDT) Glucose, POC 195 65 - 199 mg/dL [facility] Comment: Supplemental ranges: <140 mg/dL before meals <180 mg/dL all other times of the day Blood 04/27/2024 12:1 3 PM EDT 04/27/2024 12:13 PM EDT Kristi Renae MD POINT OF CARE TEST O RDERABLES Performing Organization Address City/[facility]/ZIP Co de Phone Number [facility] [place] [address] * POCT Glucose (04/27/2024 6:44 AM EDT) Pathologist [facility] Glucose, POC 109 65 - 199 mg/dL [facility] Comment: Supplemental ranges: <140 mg/dL before meals <180 mg/dL all other times of the day Blood 04/27/2024 6:44 AM EDT 04/27/2024 6:44 AM EDT Kristi Renae MD POINT OF CARE TEST O CARMELITA Performing Organization Address City/[facility]/ZIP Co de Phone Number [facility] [place] [address] * (ABNORMAL) Differential, Automated (04/27/2024 5:47 AM EDT) [facility] Neutrophil % 63.6 % [facility] Neutrophil Absolute 6.72(H) 1.70 - 6.10 x10(3)/mc L [facility] Lymph % 19.0 % [facility] Lymphocytes Abs 2.0 0.9 - 3.2 x10(3)/mc L [facility] Monocyte % 12.5 % [facility] Monocyte Abs 1.3(H) 0.3 - 0.9 x10(3)/mc L [facility] Eos % 3.8 % [facility] Eosinophils Abs 0.4 0.0 - 0.4 x10(3)/mc L [facility] Basophil % 0.6 % [facility] Baso Absolute 0.1 0.0 - 0.1 x10(3)/mc L [facility] Immature Gran % 0.50 % [facility] Comment: Immature granulocytes(IG's)percentage and absolute count will include metamyelocytes, myelocytes, and promyelocytes. Blood smears from CBCs yielding IG's will be scanned manually for concordance. If this scan disagrees with the automated IG or if promyelocytes are noted, a manual differential will be performed. Immature Gran Absolute 0.05(H) 0.00 - 0.04 x10(3)/mc L [facility] Blood 04/27/2024 5:47 AM EDT 04/27/2024 6:03 AM EDT Narrative Resulting Agency Comment Spec In Lab Russell Cohen MD HEMATOLOGY ORDER FRANSISCO [facility] [address] * (ABNORMAL) Hemogram (04/27/2024 5:47 AM EDT) White Blood Cell 10.6(H) 4.0 - 9.5 x10(3)/mc L [facility] Red Blood Cell 2.89(L) 4.58 - 5.54 x10(6)/mc L [facility] Hemoglobin 7.9(L) 13.7 - 16.5 g/dL [facility] Hematocrit 26.2(L) 40.5 - 48.5 % [facility] Mean Cell Volume 90.7 82.9 - 93.1 fL [facility] Mean Cell Hemoglobin 27.3(L) 27.5 - 32.1 pg [facility] Mean Cell Hemoglobin Concentration 30.2(L) 32.0 - 35.7 g/dL [facility] Platelet 360(H) 145 - 357 x10(3)/mc L [facility] RDW Standard Deviation 55.3(H) 36.0 - 45.0 fL [facility] RDW coefficient of variation 16.9(H) 11.4 - 13.8 % [facility] Mean Platelet Volume 11.1 7.6 - 12.9 fL [facility] NRBC% auto 0.0 % [facility] NRBC Absolute 0.000 0.000 - 0.000 x10(3)/mc L [facility] Blood 04/27/2024 5:47 AM EDT 04/27/2024 6:03 AM EDT Narrative Resulting Agency Comment Spec In Lab Russell Cohen MD HEMATOLOGY ORDER FRANSISCO [facility] [address] * (ABNORMAL) Basic Metabolic Panel (non-fasting) (04/27/2024 5:47 AM EDT) Glucose 109 65 - 199 mg/dL [facility] Comment:Diabetes: >=200 mg/d L plus symptoms Blood Urea Nitrogen 42(H) 10 - 20 mg/dL [facility] Creatinine 6.62(H) 0.80 - 1.50 mg/dL [facility] Comment:result rechecked-HN Sodium 139 135 - 145 mmol/L [facility] Potassium 4.9 3.5 - 5.0 mmol/L [facility] Comment: Please note: ??Patients with WBC >100,000 may have falsely elevated Potassium levels. ??For accurate Potassium quantification in these patients send serum separator tube (gold top) for subsequent determinations. ??Contact the Clinical Chemistry Laboratory if there are any questions. Chloride 100 98 - 107 mmol/L [facility] Carbon Dioxide 26 22 - 31 mmol/L [facility] Anion Gap 13 5 - 15 mmol/L [facility] Calcium 9.0 8.5 - 10.5 mg/dL [facility] Est Glomerular Filtration Rate 9(L) >=60 mL/min/1. 73 m?? [facility] Comment: This patient's estimated GFR was [...] and symptoms in addition to eGFR. Blood 04/27/2024 5:47 AM EDT 04/27/2024 6:03 AM EDT Narrative Resulting Agency Comment Spec In Lab Kristi Renae MD CHEMISTRY ORDERABLES Performing Organization Address [facility] Co de Phone Number [facility] [place] [place] [address] * (ABNORMAL) Phosphorus (04/27/2024 5:47 AM EDT) Phosphorus 6.8(H) 2.5 - 4.5 mg/dL [facility] Blood 04/27/2024 5:47 AM EDT 04/27/2024 6:03 AM EDT Narrative Resulting Agency Comment Spec In Lab Kristi Renae MD CHEMISTRY ORDERABLES Performing Organization Address [facility] Co de Phone Number [facility] [place] [address] * Magnesium (04/27/2024 5:47 AM EDT) Magnesium 0.83 0.69 - 1.07 mmol/L [facility] Blood 04/27/2024 5:47 AM EDT 04/27/2024 6:03 AM EDT Narrative Resulting Agency Comment Spec In Lab Kristi Renae MD CHEMISTRY ORDERABLES Performing Organization Address [facility] Co de Phone Number [facility] [place] [place] [address] * POCT Glucose (04/27/2024 3:59 AM EDT) Glucose, POC [phone] mg/dL [facility] Comment: Supplemental ranges: <140 mg/dL before meals <180 mg/dL all other times of the day Blood 04/27/2024 3:59 AM EDT 04/27/2024 3:59 AM EDT Kristi Renae MD POINT OF CARE TEST O CARMELITA [facility] [place] [address] * POCT Glucose (04/26/2024 11:32 PM EDT) Glucose, POC 102 65 - 199 mg/dL [facility] Comment: Supplemental ranges: <140 mg/dL before meals <180 mg/dL all other times of the day Blood 04/26/2024 11:3 2 PM EDT 04/26/2024 11:32 PM EDT Kristi Renae MD POINT OF CARE TEST O CARMELITA Performing Organization Address [facility]/ZIP Co de Phone Number [facility] [place] [address] * POCT Glucose (04/26/2024 8:28 PM EDT) Glucose, POC 121 65 - 199 mg/dL [facility] Comment: Supplemental ranges: <140 mg/dL before meals <180 mg/dL all other times of the day Blood 04/26/2024 8:28 PM EDT 04/26/2024 8:28 PM EDT Kristi Renae MD POINT OF CARE TEST O CARMELITA [facility] [place] [address] * POCT Glucose (04/26/2024 5:09 PM EDT) Glucose, POC 100 65 - 199 mg/dL [facility] Comment: Supplemental ranges: <140 mg/dL before meals <180 mg/dL all other times of the day Blood 04/26/2024 5:09 PM EDT 04/26/2024 5:09 PM EDT Kristi Renae MD POINT OF CARE TEST O CARMELITA [facility] [place] [address] * POCT Glucose (04/26/2024 11:51 AM EDT) Glucose, POC 79 65 - 199 mg/dL [facility] Comment: Supplemental ranges: <140 mg/dL before meals <180 mg/dL all other times of the day Blood 04/26/2024 11:5 1 AM EDT 04/26/2024 11:51 AM EDT Kristi Renae MD POINT OF CARE TEST O CARMELITA Performing Organization Address [facility] Co de Phone Number [facility] [place] [address] * POCT Glucose (04/26/2024 7:30 AM EDT) Glucose, POC 118 65 - 199 mg/dL [facility] Comment: Supplemental ranges: <140 mg/dL before meals <180 mg/dL all other times of the day Blood 04/26/2024 7:30 AM EDT 04/26/2024 7:30 AM EDT Kristi Renae MD POINT OF CARE TEST O CARMELITA Performing Organization Address City/State/[facility] Co de Phone Number [facility] [place] [address] * (ABNORMAL) Differential, Automated (04/26/2024 4:58 AM EDT) Neutrophil % 73.1 % [facility] Neutrophil Absolute 9.61(H) 1.70 - 6.10 x10(3)/ L [facility] Lymph % 12.4 % [facility] Lymphocytes Abs 1.6 0.9 - 3.2 x10(3)/ L [facility] Monocyte % 10.0 % [facility] Monocyte Abs 1.3(H) 0.3 - 0.9 x10(3)/ L [facility] Eos % 3.7 % [facility] Eosinophils Abs 0.5(H) 0.0 - 0.4 x10(3)/[facility] Basophil % 0.4 % [facility] Baso Absolute 0.0 0.0 - 0.1 x10(3)/[facility] Immature Gran % 0.40 % [facility] Comment: Immature granulocytes(IG's)percentage and absolute count will include metamyelocytes, myelocytes, and promyelocytes. Blood smears from CBCs yielding IG's will be scanned manually for concordance. If this scan disagrees with the automated IG or if promyelocytes are noted, a manual differential will be performed. Immature Gran Absolute 0.05(H) 0.00 - 0.04 x10(3)/ L [facility] Blood 04/26/2024 4:58 AM EDT 04/26/2024 5:22 AM EDT Narrative Resulting Agency Comment Spec In Lab Russell Cohen MD HEMATOLOGY ORDER FRANSISCO [facility] [place] [address] * (ABNORMAL) Hemogram (04/26/2024 4:58 AM EDT) Pathologist [facility] White Blood Cell 13.1(H) 4.0 - 9.5 x10(3)/ L [facility] Red Blood Cell 3.20(L) 4.58 - 5.54 x10(6)/mc L [facility] Hemoglobin 8.9(L) 13.7 - 16.5 g/dL [facility] Hematocrit 29.1(L) 40.5 - 48.5 % [facility] Mean Cell Volume 90.9 82.9 - 93.1 fL [facility] Mean Cell Hemoglobin 27.8 27.5 - 32.1 pg [facility] Mean Cell Hemoglobin Concentration 30.6(L) 32.0 - 35.7 g/dL [facility] Platelet 429(H) 145 - 357 x10(3)/mc L [facility] RDW Standard Deviation 55.0(H) 36.0 - 45.0 [facility] RDW coefficient of variation 16.8(H) 11.4 - 13.8 % [facility] Mean Platelet Volume 10.9 7.6 - 12.9 [facility] NRBC% auto 0.0 % [facility] NRBC Absolute 0.000 0.000 - 0.000 x10(3)/mc L [facility] Blood 04/26/2024 4:58 AM EDT 04/26/2024 5:22 AM EDT Narrative Resulting Agency Comment Spec In Lab Russell Cohen MD HEMATOLOGY ORDER FRANSISCO [facility] [place] [address] * (ABNORMAL) Basic Metabolic Panel (non-fasting) (04/26/2024 4:58 AM EDT) Glucose 109 65 - 199 mg/dL [facility] Comment:Diabetes: >=200 mg/d L plus symptoms Blood Urea Nitrogen 57(H) 10 - 20 mg/dL [facility] Creatinine 8.00(H) 0.80 - 1.50 mg/dL [facility] Comment:result rechecked-mg Sodium 139 135 - 145 mmol/L [facility] Potassium 5.5(H) 3.5 - 5.0 mmol/L [facility] Comment: Please note: ??Patients with WBC >100,000 may have falsely elevated Potassium levels. ??For accurate Potassium quantification in these patients send serum separator tube (gold top) for subsequent determinations. ??Contact the Clinical Chemistry Laboratory if there are any questions. Chloride 97(L) 98 - 107 mmol/L [facility] Carbon Dioxide 23 22 - 31 mmol/L [facility] Anion Gap 19(H) 5 - 15 mmol/L [facility] Calcium 8.5 8.5 - 10.5 mg/dL [facility] Est Glomerular Filtration Rate 7(L) >=60 mL/min/1. 73 m?? [facility] Comment: This patient's estimated GFR was [...] and symptoms in addition to eGFR. Blood 04/26/2024 4:58 AM EDT 04/26/2024 5:24 AM EDT Narrative Resulting Agency Comment Spec In Lab Kristi Renae MD CHEMISTRY ORDERABLES [facility] [place] [address] * (ABNORMAL) Phosphorus (04/26/2024 4:58 AM EDT) Phosphorus 7.4(H) 2.5 - 4.5 mg/dL [facility] Blood 04/26/2024 4:58 AM EDT 04/26/2024 5:24 AM EDT Narrative Resulting Agency Comment Spec In Lab Kristi Renae MD CHEMISTRY ORDERABLES Performing Organization Address [facility] Co de Phone Number [facility] [place] [address] * Magnesium (04/26/2024 4:58 AM EDT) Magnesium 0.83 0.69 - 1.07 mmol/L [facility] Blood 04/26/2024 4:58 AM EDT 04/26/2024 5:24 AM EDT Narrative Resulting Agency Comment Spec In Lab Kristi Renae MD CHEMISTRY ORDERABLES Performing Organization Address [facility] de Phone Number [facility] [place] [address] * Vancomycin Level, Random (04/26/2024 4:58 AM EDT) Vancomycin, Random 19.4 mg/L [facility] Comment: This level is for determination of the patient's vancomycin vodf-chpcl-ilb-curve (AUC) value. Contact the inpatient pharmacy for interpretation. Blood 04/26/2024 4:58 AM EDT 04/26/2024 5:24 AM EDT Kristi Renae MD CHEMISTRY ORDERABLES Performing Organization Address [facility] Co de Phone Number [facility] [place] [address] * POCT Glucose (04/26/2024 4:24 AM EDT) Glucose, POC 112 65 - 199 mg/dL [facility] Comment: Supplemental ranges: <140 mg/dL before meals <180 mg/dL all other times of the day Blood 04/26/2024 4:24 AM EDT 04/26/2024 4:24 AM EDT Kristi Renae MD POINT OF CARE TEST O RDERABLES [facility] [place] [address] * POCT Glucose (04/25/2024 11:33 PM EDT) Glucose, POC 154 65 - 199 mg/dL [facility] Comment: Supplemental ranges: <140 mg/dL before meals <180 mg/dL all other times of the day Blood 04/25/2024 11:3 3 PM EDT 04/25/2024 11:33 PM EDT Kristi Renae MD POINT OF CARE TEST O RDERAKEREN [facility] [place] [address] * POCT Glucose (04/25/2024 6:53 PM EDT) Glucose, POC 73 65 - 199 mg/dL [facility] Comment: Supplemental ranges: <140 mg/dL before meals <180 mg/dL all other times of the day Blood 04/25/2024 6:53 PM EDT 04/25/2024 6:53 PM EDT Kristi Renae MD POINT OF CARE TEST O RDERAKEREN [facility] [place] [address] * POCT Glucose (04/25/2024 6:10 PM EDT) Glucose, POC 68 65 - 199 mg/dL [facility] Comment: Supplemental ranges: <140 mg/dL before meals <180 mg/dL all other times of the day Blood 04/25/2024 6:10 PM EDT 04/25/2024 6:10 PM EDT Kristi Renae MD POINT OF CARE TEST O CARMELITA Performing Organization Address [facility] de Phone Number [facility] [place] [address] * (ABNORMAL) POCT Glucose (04/25/2024 5:46 PM EDT) Glucose, POC 57(L) 65 - 199 mg/dL [facility] Comment: Supplemental ranges: <140 mg/dL before meals <180 mg/dL all other times of the day Blood 04/25/2024 5:46 PM EDT 04/25/2024 5:46 PM EDT Kristi Renae MD POINT OF CARE TEST O CARMELITA Performing Organization Address [facility] Co de Phone Number [facility] [place] [address] * Specimen to Pathology (04/25/2024 5:02 PM EDT) AP Specimen 04/25/2024 5:02 PM EDT 04/25/2024 5:02 PM EDT Narrative [facility] - 04/25/2024 5:02 PM EDT Specimen requisition ordered. ??Separate Pathology report to follow Janet Carrington MD PATHOLOGY/CYTOLOGY O CARMELITA Performing Organization Address [facility] Co de Phone Number [facility] [place] [address] * Surgical Pathology Report (04/25/2024 5:01 PM EDT) Final Diagnosis [id number] ? Location: L4WD; 0420; A The signing pathologist has (i) examined the relevant preparation(s) for the specimen(s) and (ii) rendered or confirmed the diagnosis(es). . ?Surgical Pathology DIAGNOSIS A - Right leg; revision of ?? 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 ?Anterior tibial artery: Medial calcific arteriosclerosis, with up ?to 10% luminal stenosis. ?Status post amputation of the right foot, with expected changes. ?Viable revision amputation margin, with expected changes. Electronically signed by: ?Jose CID, Kiel Govea Verified: ??05/01/2024 14:48 ??Pathologist Performed at: ??-[facility] Dept. of Pathology, [place] [address] Acupuncturist: Karina Valencia MD, FCAP, ??CLIA Certificate: [id number] SPECIMEN(S) SUBMITTED A - Right leg CLINICAL INFORMATION Infected right heel. SPECIMEN PROCESSING A - Labeled/Fixative: ?? Right lower leg, fresh. Quantity/Size: Single 20.3 x 13.3 cm. Tissue Description: Right, below the knee amputation revision. Margin: Viable. Skin: Intact, dry, white. Lesions: No lesions identified. Prior resection site: [place] granulation tissue overlying prior amputation site. Vessels: ??Posterior tibial artery: Diffuse atherosclerosis with up to 70% luminal stenosis. ??Anterior tibial artery: Atherosclerosis with up to 10% luminal stenosis. Sections/Processin g: Dried Yeast Supervisor sections in 3 cassettes as follows: ?A1: ??Skin and underlying subcutis, and skeletal muscle en face sections taken at ? margin ?A2: ??Granulation tissue sectioned longitudinally from prior resection site ?A3: ??Posterior and anterior tibial artery bundles submitted in cross-section ??tbf, sns 05/01/2024 2:48 PM EDT [facility] Extremity 04/25/2024 5:01 PM EDT 04/25/2024 5:01 PM EDT Janet Carrington MD PATHOLOGY/CYTOLOGY O RDERABLES [facility] [place] [address] * EKG 12 Lead (04/25/2024 12:38 PM EDT) Ventricular rate 61 BPM MUSE SYSTEM Atrial Rate 61 BPM MUSE SYSTEM P-R Interval 152 ms MUSE SYSTEM QRS Duration 82 ms MUSE SYSTEM Q-T Interval 448 ms MUSE SYSTEM QTC Calculated (Bezet) 450 ms MUSE SYSTEM Calculated P [place] 47 degrees MUSE SYSTEM Calculated R [place] 30 degrees MUSE SYSTEM Calculated T [place] 43 degrees MUSE SYSTEM INTERPRETATION Normal sinus rhythm Normal ECG When compared with ECG of 24-APR-2024 12:47, No significant change was found Confirmed by MD Juan, Sourav ([id number]) on 04/25/2024 2:21:13 PM MUSE SYSTEM 04/25/2024 12:3 8 PM EDT 04/25/2024 2:21 PM EDT Kristi Renae MD ECG ORDERABLES Performing Organization Address [facility] de Phone Number MUSE SYSTEM * POCT Glucose (04/25/2024 11:36 AM EDT) Glucose, POC 154 65 - 199 mg/dL [facility] Comment: Supplemental ranges: <140 mg/dL before meals <180 mg/dL all other times of the day Blood 04/25/2024 11:3 6 AM EDT 04/25/2024 11:36 AM EDT Kristi Renae MD POINT OF CARE TEST O RDERABLES Performing Organization Address [facility] Co de Phone Number [facility] [place] [address] * (ABNORMAL) Urinalysis Microscopic Exam (04/25/2024 9:32 AM EDT) RBC, Urine 2 0 - 3 /HPF [facility] WBC, Urine 4(H) 0 - 3 /HPF [facility] Bacteria, Urine Few(A) None /HPF [facility] Comment: Interpret results with caution, microscopic results are from suboptimal specimen volume Squamous Epithelial Cells Raw Data, Urine 3 <=4 /HPF [facility] Transitional Epithelial Cells, Urine <1 <=1 /HPF [facility] Comment: Interpret results with caution, microscopic results are from suboptimal specimen volume Hyaline Casts, Urine 2 0 - 2 /LPF [facility] Comment: Interpret results with caution, microscopic results are from suboptimal specimen volume Urine 04/25/2024 9:32 AM EDT 04/25/2024 9:55 AM EDT Narrative Resulting Agency Comment Spec In Lab Pau Burt APRN URINE ORDERABLES [facility] [place] [address] * (ABNORMAL) Urinalysis with reflex Culture (04/25/2024 9:32 AM EDT) Glucose, Urine Dipstick 250(A) Negative mg/dL [facility] Protein, Urine Dipstick >=300(A) Negative mg/dL [facility] Bilirubin, Urine Dipstick Negative Negative mg/dL [facility] Comment: Clinical correlation required for positive Urine Bilirubin results as false positive may occur with some drugs and drug related products. If a false positive is suspected a serum total bilirubin should be considered if clinically indicated. Urobilinogen, Urine Dipstick Normal Normal mg/dL [facility] pH, Urn (dipstick) 7.5 5.0 - 8.0 [facility] Blood, Urine Dipstick Negative Negative mg/dL [facility] Ketone, Urine Dipstick Negative Negative mg/dL [facility] Nitrite, Urine Dipstick Negative Negative [facility] Leukocytes, Urine Dipstick Negative Negative [facility] Appearance, Urine Dipstick Turbid(A) Clear [facility] Specific [place] Urine Automated 1.022 1.005 - 1.030 [facility] Color, Urine Dipstick Yellow Yellow [facility] Reflex to Culture No [facility] Urine 04/25/2024 9:32 AM EDT 04/25/2024 9:54 AM EDT Narrative Resulting Agency Comment Spec In Lab Pau Burt FULFILLMENT SPECIALIST URINE ORDERABLES [facility] [place] [address] * (ABNORMAL) Differential, Automated (04/25/2024 9:23 AM EDT) Neutrophil % 59.8 % [facility] Neutrophil Absolute 4.79 1.70 - 6.10 x10(3)/mc L [facility] Lymph % 20.8 % [facility] Lymphocytes Abs 1.7 0.9 - 3.2 x10(3)/mc L [facility] Monocyte % 11.9 % [facility] Monocyte Abs 1.0(H) 0.3 - 0.9 x10(3)/mc L [facility] Eos % 6.0 % [facility] Eosinophils Abs 0.5(H) 0.0 - 0.4 x10(3)/mc L [facility] Basophil % 1.1 % [facility] Baso Absolute 0.1 0.0 - 0.1 x10(3)/mc L [facility] Immature Gran % 0.40 % [facility] Comment: Immature granulocytes(IG's)percentage and absolute count will include metamyelocytes, myelocytes, and promyelocytes. Blood smears from CBCs yielding IG's will be scanned manually for concordance. If this scan disagrees with the automated IG or if promyelocytes are noted, a manual differential will be performed. Immature Gran Absolute 0.03 0.00 - 0.04 x10(3)/mc L [facility] Blood 04/25/2024 9:23 AM EDT 04/25/2024 10:06 AM EDT Narrative Resulting Agency Comment Spec In Lab Munira Jorge MD HEMATOLOGY ORDERABLE S [facility] [place] [address] * (ABNORMAL) Hemogram (04/25/2024 9:23 AM EDT) White Blood Cell 8.0 4.0 - 9.5 x10(3)/mc L [facility] Red Blood Cell 3.39(L) 4.58 - 5.54 x10(6)/mc L [facility] Hemoglobin 9.2(L) 13.7 - 16.5 g/dL [facility] Hematocrit 31.8(L) 40.5 - 48.5 % [facility] Mean Cell Volume 93.8(H) 82.9 - 93.1 fL [facility] Mean Cell Hemoglobin 27.1(L) 27.5 - 32.1 pg [facility] Mean Cell Hemoglobin Concentration 28.9(L) 32.0 - 35.7 g/dL [facility] Platelet 391(H) 145 - 357 x10(3)/mc L [facility] RDW Standard Deviation 56.0(H) 36.0 - 45.0 fL [facility] RDW coefficient of variation 16.5(H) 11.4 - 13.8 % [facility] Mean Platelet Volume 11.4 7.6 - 12.9 [facility] NRBC% auto 0.0 % [facility] NRBC Absolute 0.000 0.000 - 0.000 x10(3)/[facility] Blood 04/25/2024 9:23 AM EDT 04/25/2024 10:06 AM EDT Narrative Resulting Agency Comment Spec In Lab Munira Jorge MD HEMATOLOGY ORDERABLE S [facility] [place] [address] * (ABNORMAL) Basic Metabolic Panel (non-fasting) (04/25/2024 9:23 AM EDT) Glucose 182 65 - 199 mg/dL [facility] Comment:Diabetes: >=200 mg/d L plus symptoms Blood Urea Nitrogen 52(H) 10 - 20 mg/dL [facility] Creatinine 6.89(H) 0.80 - 1.50 mg/dL [facility] Sodium 140 135 - 145 mmol/L [facility] Potassium 5.5(H) 3.5 - 5.0 mmol/L [facility] Comment: Please note: ??Patients with WBC >100,000 may have falsely elevated Potassium levels. ??For accurate Potassium quantification in these patients send serum separator tube (gold top) for subsequent determinations. ??Contact the Clinical Chemistry Laboratory if there are any questions. Chloride 99 98 - 107 mmol/L [facility] Carbon Dioxide 23 22 - 31 mmol/L [facility] Anion Gap 18(H) 5 - 15 mmol/L [facility] Calcium 8.5 8.5 - 10.5 mg/dL [facility] Est Glomerular Filtration Rate 9(L) >=60 mL/min/1. 73 m?? [facility] Comment: This patient's estimated GFR was [...] and symptoms in addition to eGFR. Blood 04/25/2024 9:23 AM EDT 04/25/2024 10:08 AM EDT Narrative Resulting Agency Comment Spec In Lab Kristi Renae MD CHEMISTRY ORDERABLES Performing Organization Address [facility] Co de Phone Number [facility] [place] [address] * POCT Glucose (04/25/2024 7:56 AM EDT) Glucose, POC 144 65 - 199 mg/dL [facility] Comment: Supplemental ranges: <140 mg/dL before meals <180 mg/dL all other times of the day Blood 04/25/2024 7:56 AM EDT 04/25/2024 7:56 AM EDT Kristi Renae MD POINT OF CARE TEST O RDERABLES Performing Organization Address [facility] de Phone Number [facility] [place] [address] * Type and Screen Validity (04/25/2024 5:29 AM EDT) T&S only valid at [facility] Comment:This Type and Screen result is only valid at the [facility] Blood 04/25/2024 5:29 AM EDT 04/25/2024 5:54 AM EDT Narrative Resulting Agency Comment Spec In Lab Russell Cohen MD BLOOD BANK LAB O RDERABLES Performing Organization Address [facility] Co de Phone Number [facility] [place] [address] * ABORH Recheck Status (04/25/2024 5:29 AM EDT) ABORH Type Recheck Completed [facility] Blood 04/25/2024 5:29 AM EDT 04/25/2024 5:54 AM EDT Narrative Resulting Agency Comment Spec In Lab Russell Cohen MD BLOOD BANK LAB O RDERABLES Performing Organization Address [facility]/ZIP Co de Phone Number [facility] [place] [address] * (ABNORMAL) Phosphorus (04/25/2024 5:29 AM EDT) Phosphorus 6.9(H) 2.5 - 4.5 mg/dL [facility] Blood 04/25/2024 5:29 AM EDT 04/25/2024 5:52 AM EDT Narrative Resulting Agency Comment Spec In Lab Kristi Renae MD CHEMISTRY ORDERABLES Performing Organization Address [facility]/ZIP Co de Phone Number [facility] [place] [address] * Magnesium (04/25/2024 5:29 AM EDT) Pathologist [facility] Magnesium 0.85 0.69 - 1.07 mmol/L [facility] Blood 04/25/2024 5:29 AM EDT 04/25/2024 5:52 AM EDT Narrative Resulting Agency Comment Spec In Lab Kristi Renae MD CHEMISTRY ORDERABLES Performing Organization Address [facility] Co de Phone Number [facility] [place] [address] * Type and screen ([facility] [place]/CGP/CHASE) (04/25/2024 5:29 AM EDT) ABORH Type A POSITIVE [facility] Patient BB History Found [facility] Expires at [id number] on: 04/28/2024 [facility] Ab Screen Interp Negative [facility] Blood 04/25/2024 5:29 AM EDT 04/25/2024 5:29 AM EDT Narrative [facility] - 04/25/2024 5:29 AM EDT This Type and Screen result is only valid at the [facility] Resulting Agency Comment Spec In Lab Kristi Renae MD BLOOD BANK LAB ORDER FRANSISCO Performing Organization Address City/[facility]/ZIP Co de Phone Number [facility] [place] [place] [address] * (ABNORMAL) POCT Glucose (04/25/2024 4:19 AM EDT) Glucose, POC 204(H) 65 - 199 mg/dL [facility] Comment: Supplemental ranges: <140 mg/dL before meals <180 mg/dL all other times of the day Blood 04/25/2024 4:19 AM EDT 04/25/2024 4:19 AM EDT Kristi Renae MD POINT OF CARE TEST O RDERABLES Performing Organization Address [facility] Co de Phone Number [facility] [place] [place] [address] * (ABNORMAL) POCT Glucose (04/25/2024 12:08 AM EDT) Glucose, POC 237(H) 65 - 199 mg/dL [facility] Comment: Supplemental ranges: <140 mg/dL before meals <180 mg/dL all other times of the day Blood 04/25/2024 12:0 8 AM EDT 04/25/2024 12:08 AM EDT Kristi Renae MD POINT OF CARE TEST O RDERABLES Performing Organization Address City/[facility]/ZIP Co de Phone Number [facility] [place] [address] * POCT Glucose (04/24/2024 8:03 PM EDT) Glucose, POC 157 65 - 199 mg/dL [facility] Comment: Supplemental ranges: <140 mg/dL before meals <180 mg/dL all other times of the day Blood 04/24/2024 8:03 PM EDT 04/24/2024 8:03 PM EDT Kristi Renae MD POINT OF CARE TEST O RDLIEN Performing Organization Address City/[facility]/ZIP Co de Phone Number [facility] [place] [address] * POCT Glucose (04/24/2024 5:12 PM EDT) Glucose, POC 102 65 - 199 mg/dL [facility] Comment: Supplemental ranges: <140 mg/dL before meals <180 mg/dL all other times of the day Blood 04/24/2024 5:12 PM EDT 04/24/2024 5:12 PM EDT Kristi Renae MD POINT OF CARE TEST O CARMELITA Performing Organization Address [facility]/ZIP Co de Phone Number [facility] [place] [address] * POCT Glucose (04/24/2024 3:31 PM EDT) Glucose, POC 123 65 - 199 mg/dL [facility] Comment: Supplemental ranges: <140 mg/dL before meals <180 mg/dL all other times of the day Blood 04/24/2024 3:31 PM EDT 04/24/2024 3:31 PM EDT Kristi Renae MD POINT OF CARE TEST O CARMELITA Performing Organization Address [facility]/ZIP Co de Phone Number [facility] [place] [address] * (ABNORMAL) Ferritin (04/24/2024 3:15 PM EDT) Ferritin 1,173(H) 31 - 409 ng/mL [facility] Comment: Please note that as of 09/29/2023, the reference intervals for Ferritin have been updated. Blood 04/24/2024 3:15 PM EDT 04/24/2024 3:34 PM EDT Narrative Resulting Agency Comment Spec In Lab Ruby Villareal MD CHEMISTRY ORDERABLE S Performing Organization Address City/[facility]/ZIP Co de Phone Number [facility] [place] [address] * (ABNORMAL) Iron and TIBC (04/24/2024 3:15 PM EDT) Iron 27(L) 45 - 160 mcg/dL [facility] TIBC 139(L) 250 - 450 mcg/dL [facility] Iron Saturation 19(L) 20 - 50 % [facility] Blood 04/24/2024 3:15 PM EDT 04/24/2024 3:34 PM EDT Narrative Resulting Agency Comment Spec In Lab Ruby Villareal MD CHEMISTRY ORDERABLE S Performing Organization Address [facility]/ZIP Co de Phone Number [facility] [place] [address] * EKG 12 Lead (04/24/2024 12:47 PM EDT) Ventricular rate 58 BPM MUSE SYSTEM Atrial Rate 58 BPM MUSE SYSTEM P-R Interval 152 ms MUSE SYSTEM QRS Duration 80 ms MUSE SYSTEM Q-T Interval 456 ms MUSE SYSTEM QTC Calculated (Bezet) 447 ms MUSE SYSTEM Calculated P [place] 51 degrees MUSE SYSTEM Calculated R [place] 9 degrees MUSE SYSTEM Calculated T [place] 39 degrees MUSE SYSTEM INTERPRETATION Sinus bradycardia Otherwise normal ECG When compared with ECG of 22-APR-2024 10:51, Sinus rhythm has replaced Atrial fibrillation Vent. rate has decreased BY ??50 BPM I personally reviewed the tracing and edited the fellows interpretation Confirmed by fellow Gregory Painting ([id number]) on 04/25/2024 1:07:18 PM Confirmed by MD Juan, Sourav ([id number]) on 04/25/2024 2:31:09 PM MUSE SYSTEM 04/24/2024 12:4 7 PM EDT 04/25/2024 2:31 PM EDT Kristi Renae MD ECG ORDERABLES MUSE SYSTEM * POCT Glucose (04/24/2024 11:58 AM EDT) Glucose, POC 186 65 - 199 mg/dL [facility] Comment: Supplemental ranges: <140 mg/dL before meals <180 mg/dL all other times of the day Blood 04/24/2024 11:5 8 AM EDT 04/24/2024 11:58 AM EDT Kristi Renae MD POINT OF CARE TEST O RDERAKEREN Performing Organization Address [facility] Co de Phone Number [facility] [place] [address] * (ABNORMAL) POCT Glucose (04/24/2024 7:36 AM EDT) Glucose, POC 200(H) 65 - 199 mg/dL [facility] Comment: Supplemental ranges: <140 mg/dL before meals <180 mg/dL all other times of the day Blood 04/24/2024 7:36 AM EDT 04/24/2024 7:36 AM EDT Kirsti Renae MD POINT OF CARE TEST O RDERABLES Performing Organization Address [facility] Co de Phone Number [facility] [place] [address] * (ABNORMAL) Differential, Automated (04/24/2024 5:21 AM EDT) Neutrophil % 61.7 % [facility] Neutrophil Absolute 6.04 1.70 - 6.10 x10(3)/mc L [facility] Lymph % 18.8 % [facility] Lymphocytes Abs 1.8 0.9 - 3.2 x10(3)/mc L [facility] Monocyte % 12.9 % [facility] Monocyte Abs 1.3(H) 0.3 - 0.9 x10(3)/mc L [facility] Eos % 5.7 % [facility] Eosinophils Abs 0.6(H) 0.0 - 0.4 x10(3)/ L [facility] Basophil % 0.6 % [facility] Baso Absolute 0.1 0.0 - 0.1 x10(3)/ L [facility] Immature Gran % 0.30 % [facility] Comment: Immature granulocytes(IG's)percentage and absolute count will include metamyelocytes, myelocytes, and promyelocytes. Blood smears from CBCs yielding IG's will be scanned manually for concordance. If this scan disagrees with the automated IG or if promyelocytes are noted, a manual differential will be performed. Immature Gran Absolute 0.03 0.00 - 0.04 x10(3)/[facility] Blood 04/24/2024 5:21 AM EDT 04/24/2024 5:40 AM EDT Narrative Resulting Agency Comment Spec In Lab Nikky Rao MD HEMATOLOGY ORDERA BLES [facility] [place] [address] * (ABNORMAL) Hemogram (04/24/2024 5:21 AM EDT) White Blood Cell 9.8(H) 4.0 - 9.5 x10(3)/ L [facility] Red Blood Cell 3.31(L) 4.58 - 5.54 x10(6)/mc L [facility] Hemoglobin 9.1(L) 13.7 - 16.5 g/dL [facility] Hematocrit 30.1(L) 40.5 - 48.5 % [facility] Mean Cell Volume 90.9 82.9 - 93.1 fL [facility] Mean Cell Hemoglobin 27.5 27.5 - 32.1 pg [facility] Mean Cell Hemoglobin Concentration 30.2(L) 32.0 - 35.7 g/dL [facility] Platelet 381(H) 145 - 357 x10(3)/mc L [facility] RDW Standard Deviation 54.4(H) 36.0 - 45.0 fL [facility] RDW coefficient of variation 16.3(H) 11.4 - 13.8 % [facility] Mean Platelet Volume 11.3 7.6 - 12.9 fL [facility] NRBC% auto 0.0 % [facility] NRBC Absolute 0.000 0.000 - 0.000 x10(3)/mc L [facility] Blood 04/24/2024 5:21 AM EDT 04/24/2024 5:40 AM EDT Narrative Resulting Agency Comment Spec In Lab Nikky Rao MD HEMATOLOGY ORDERA BLES Performing Organization Address City/[facility]/ZIP Co de Phone Number [facility] [place] [address] * (ABNORMAL) Phosphorus (04/24/2024 5:21 AM EDT) Phosphorus 6.8(H) 2.5 - 4.5 mg/dL [facility] Blood 04/24/2024 5:21 AM EDT 04/24/2024 5:40 AM EDT Narrative Resulting Agency Comment Spec In Lab Kristi Renae MD CHEMISTRY ORDERABLES Performing Organization Address City/[facility]/ZIP Co de Phone Number [facility] [place] [address] * Magnesium (04/24/2024 5:21 AM EDT) Magnesium 0.93 0.69 - 1.07 mmol/L [facility] Blood 04/24/2024 5:21 AM EDT 04/24/2024 5:40 AM EDT Narrative Resulting Agency Comment Spec In Lab Kristi Renae MD CHEMISTRY ORDERABLES Performing Organization Address City/[facility]/ZIP Co de Phone Number [facility] [place] [address] * Vancomycin Level, Random (04/24/2024 5:21 AM EDT) Vancomycin, Random 14.9 mg/L [facility] Comment: This level is for determination of the patient's vancomycin eeeg-ytxxy-blr-curve (AUC) value. Contact the inpatient pharmacy for interpretation. Blood 04/24/2024 5:21 AM EDT 04/24/2024 5:40 AM EDT Kristi Renae MD CHEMISTRY ORDERABLES Performing Organization Address [facility] Co de Phone Number [facility] [place] [address] * (ABNORMAL) Basic Metabolic Panel (non-fasting) (04/24/2024 5:21 AM EDT) Pathologist [facility] Glucose 184 65 - 199 mg/dL [facility] Comment:Diabetes: >=200 mg/d L plus symptoms Blood Urea Nitrogen 56(H) 10 - 20 mg/dL [facility] Creatinine 7.36(H) 0.80 - 1.50 mg/dL [facility] Comment:result rechecked-hn Sodium 139 135 - 145 mmol/L [facility] Potassium 5.5(H) 3.5 - 5.0 mmol/L [facility] Comment: Please note: ??Patients with WBC >100,000 may have falsely elevated Potassium levels. ??For accurate Potassium quantification in these patients send serum separator tube (gold top) for subsequent determinations. ??Contact the Clinical Chemistry Laboratory if there are any questions. Chloride 99 98 - 107 mmol/L [facility] Carbon Dioxide 26 22 - 31 mmol/L [facility] Anion Gap 14 5 - 15 mmol/L [facility] Calcium 9.0 8.5 - 10.5 mg/dL [facility] Est Glomerular Filtration Rate 8(L) >=60 mL/min/1. 73 m?? [facility] Comment: This patient's estimated GFR was [...] and symptoms in addition to eGFR. Blood 04/24/2024 5:21 AM EDT 04/24/2024 5:40 AM EDT Narrative Resulting Agency Comment Spec In Lab Sourav Bryson MD CHEMISTRY ORDERABLES Performing Organization Address [facility] Co de Phone Number [facility] [place] [address] * POCT Glucose (04/24/2024 4:04 AM EDT) Glucose, POC 159 65 - 199 mg/dL [facility] Comment: Supplemental ranges: <140 mg/dL before meals <180 mg/dL all other times of the day Blood 04/24/2024 4:04 AM EDT 04/24/2024 4:04 AM EDT Kristi Renae MD POINT OF CARE TEST O RDERABLES Performing Organization Address [facility]/ZIP Co de Phone Number [facility] [place] [address] * (ABNORMAL) POCT Glucose (04/24/2024 1:00 AM EDT) Glucose, POC 234(H) 65 - 199 mg/dL [facility] Comment: Supplemental ranges: <140 mg/dL before meals <180 mg/dL all other times of the day Blood 04/24/2024 1:00 AM EDT 04/24/2024 1:00 AM EDT Kristi Renae MD POINT OF CARE TEST O CARMELITA Performing Organization Address [facility] Co de Phone Number [facility] [place] [address] * (ABNORMAL) POCT Glucose (04/23/2024 8:43 PM EDT) Glucose, POC 244(H) 65 - 199 mg/dL [facility] Comment: Supplemental ranges: <140 mg/dL before meals <180 mg/dL all other times of the day Blood 04/23/2024 8:43 PM EDT 04/23/2024 8:43 PM EDT Kristi Renae MD POINT OF CARE TEST O CARMELITA Performing Organization Address [facility] Co de Phone Number [facility] [place] [address] * (ABNORMAL) POCT Glucose (04/23/2024 4:37 PM EDT) Glucose, POC 228(H) 65 - 199 mg/dL [facility] Comment: Supplemental ranges: <140 mg/dL before meals <180 mg/dL all other times of the day Blood 04/23/2024 4:37 PM EDT 04/23/2024 4:37 PM EDT Kristi Renae MD POINT OF CARE TEST O RDLIEN Performing Organization Address [facility] Co de Phone Number [facility] [place] [address] * (ABNORMAL) POCT Glucose (04/23/2024 11:57 AM EDT) Glucose, POC 208(H) 65 - 199 mg/dL [facility] Comment: Supplemental ranges: <140 mg/dL before meals <180 mg/dL all other times of the day Blood 04/23/2024 11:5 7 AM EDT 04/23/2024 11:57 AM EDT Kristi Renae MD POINT OF CARE TEST O RDERABLES [facility] [place] [address] * ECHO COMPLETE (04/23/2024 11:36 AM EDT) EF 61 HEARTLAB SYSTEM Anatomical Region Laterality Modality Cardiac Other 04/23/2024 11:0 8 AM EDT Narrative 04/23/2024 2:45 PM EDT [address] [place] [address] ? Echocardiogram Report Name: GERSON BRUNER ? Study Date: 04/23/2024 11:08 AMBP: 130/67 mmHg ? Patient Location: [id number] A : 1965 ? Height: 69 in ? Account: [id number] Age: 58 yrs ? Weight: 190 lb Gender: Male ?BSA: 2.0 m2 Ordering Physician: CLEVE GARRISON Referring Physician: JO Performed By: Noe Gong RDCS Reason For Study: Irregular heart beat Exam Location: [facility]. Interpretation Summary Left ventricular systolic function is normal. The left ventricular ejection fraction is 61% by Patel's biplane. There are no segmental wall motion abnormalities. Left ventricular filling pressure is increased. Right ventricular systolic function is normal. No significant valvular disease. Compared with study of 03/07/19, no change. Procedure Complete-81723. Left ventricular strain. Satisfactory quality. There is normal sinus rhythm. Left Ventricle Left ventricle is of normal size. Wall thickness is moderately increased. There is no left ventricular outflow tract obstruction. There is no ventricular septal defect. Left ventricular systolic function is normal. The left ventricular ejection fraction is 61% by Patel's biplane. Global longitudinal strain is measured at -15.4 %. (GE). There are no segmental wall motion abnormalities. Right Ventricle The right ventricle is of normal size. Right ventricular systolic function is normal. Left Atrium The left atrium is mildly dilated. There is no evidence for a patent foramen ovale. Right Atrium A Chiari network is present (normal embryologic variant). The right atrium is normal. Aortic Valve The aortic valve is tricuspid. The aortic valve is mildly thickened. There is no aortic stenosis. There is no aortic regurgitation. Mitral Valve The mitral valve leaflets are thickened. There is posterior mitral annular calcification. There is no mitral stenosis. There is trace mitral regurgitation. Tricuspid Valve The tricuspid valve is structurally normal. There is trace tricuspid regurgitation. Pulmonic Valve The pulmonic valve appears to be structurally normal. There is trace pulmonic valve regurgitation. Great Arteries The diameter at the level of the sinuses of Valsalva is 3.9 cm. The maximum diameter of the proximal ascending aorta is 2.9 cm. Venous Inferior vena cava is normal in size. Inferior vena cava collapse less than 50% with respiration. Pericardium/Pleural The pericardium appears normal. Hemodynamics Pulmonary artery hypertension could not be assessed due to inadequate tricuspid regurgitation jet. The estimated right atrial pressure is 8mmHg. Left ventricular diastolic function is abnormal. Left ventricular filling pressure is increased. Ejection Fraction ?2D Measurements ? Volumes EF(MOD-bp): 61.4 % ?IVSd: 1.6 cm ? LAV(MOD- bp) Indexed: ?LVIDd: 5.4 cm ?LVIDs: 3.7 cm ?45.9 ml/m2 ?LVPWd: 1.4 cm ?EDV(MOD-bp) Indexed: ? 70.5 ml/m2 ?RWT: 0.51 {ratio} ?ESV(MOD-bp) Indexed: ?LV mass(C)d: 363.9 grams ?LV mass(C)dI: 180.4 grams/m2 ?? 27.2 ml/m2 ?Ao root diam: 3.9 cm ?Ao root diam index: 1.9 ?asc Aorta Diam: 2.9 cm ?TAPSE_phl: 2.2 cm Doppler ?3D/Strain/TomTec MV E max ric: ? LV GLS (S3P): -15.4 % 136.9 cm/sec MV A max ric: 81.1 cm/sec MV E/A: 1.7 MV dec time: 0.30 sec Lat Peak E' Ric: 8.8 cm/sec E/e' (lat): 15.6 Med Peak E' Ric: 6.5 cm/sec E/e' (med): 21.2 E/e' Average: 18.4 I ?WMSI = 1.00 ? % Normal = 100 ?Segments ??Size X - Cannot ?2 - ?4 - ?1-2 ? small Interpret ?1 - Normal ?? Hypokinetic 3 - Akinetic Dyskinetic ?? 3-5 ? moderate 5 - ? 6-14 ?large Aneurysmal ?15-16 ?? diffuse Procedure Note Aubrey Almeida MD - 04/23/2024 [address] [place] [address] Echocardiogram Report Name: GERSON BRUNER Study Date: 1:08 AMBP: 130/67 mmHg Patient Location: [id number] A : 1965 Height: 69 in Account: [id number] Age: 58 yrs Weight: 190 lb Gender: Male BSA: 2.0 m2 Ordering Physician: CLEVE GARRISON Referring Physician: NONE Performed By: Noe Gong RDCS Reason For Study: Irregular heart beat Exam Location: [facility]. Interpretation Summary Left ventricular systolic function is normal. The left ventricularejection fraction is 61% by Patel's biplane. There are no segmental wall motion abnormalities. Left ventricular filling pressure is increased. Right ventricular systolic function is normal. No significant valvular disease. Compared with study of 03/07/19, no change. Procedure Complete-[id number]. Left ventricular strain. Satisfactory quality. There isnormal sinus rhythm. Left Ventricle Left ventricle is of normal size. Wall thickness is moderately increased.There is no left ventricular outflow tract obstruction. There is no ventricularseptal defect. Left ventricular systolic function is normal. The leftventricular ejection fraction is 61% by Patel's biplane. Global longitudinal strainis measured at -15.4 %. (GE). There are no segmental wall motionabnormalities. Right Ventricle The right ventricle is of normal size. Right ventricular systolic functionis normal. Left Atrium The left atrium is mildly dilated. There is no evidence for a patentforamen ovale. Right Atrium A Chiari network is present (normal embryologic variant). The right atriumis normal. Aortic Valve The aortic valve is tricuspid. The aortic valve is mildly thickened. Thereis no aortic stenosis. There is no aortic regurgitation. Mitral Valve The mitral valve leaflets are thickened. There is posterior mitralannular calcification. There is no mitral stenosis. There is trace mitralregurgitation. Tricuspid Valve The tricuspid valve is structurally normal. There is trace tricuspid regurgitation. Pulmonic Valve The pulmonic valve appears to be structurally normal. There is tracepulmonic valve regurgitation. Great Arteries The diameter at the level of the sinuses of Valsalva is 3.9 cm. Themaximum diameter of the proximal ascending aorta is 2.9 cm. Venous Inferior vena cava is normal in size. Inferior vena cava collapse lessthan 50% with respiration. Pericardium/Pleural The pericardium appears normal. Hemodynamics Pulmonary artery hypertension could not be assessed due to inadequatetricuspid regurgitation jet. The estimated right atrial pressure is 8mmHg. Leftventricular diastolic function is abnormal. Left ventricular filling pressure isincreased. Ejection Fraction 2D Measurements Volumes EF(MOD-bp): 61.4 % IVSd: 1.6 cm LAV(MOD-bp)Indexed: LVIDd: 5.4 cm LVIDs: 3.7 cm 45.9 ml/m2 LVPWd: 1.4 cm EDV(MOD-bp)Indexed: 70.5 ml/m2 RWT: 0.51 {ratio} ESV(MOD-bp)Indexed: LV mass(C)d: 363.9 grams LV mass(C)dI: 180.4 grams/m2 27.2 ml/m2 Ao root diam: 3.9 cm Ao root diam index: 1.9 asc Aorta Diam: 2.9 cm TAPSE_phl: 2.2 cm Doppler 3D/Strain/TomTec MV E max ric: LV GLS (S3P): -15.4 % 136.9 cm/sec MV A max ric: 81.1 cm/sec MV E/A: 1.7 MV dec time: 0.30 sec Lat Peak E' Ric: 8.8 cm/sec E/e' (lat): 15.6 Med Peak E' Ric: 6.5 cm/sec E/e' (med): 21.2 E/e' Average: 18.4 I WMSI = 1.00 % Normal = 100 SegmentsSize X - Cannot 2 - 4 - 1-2small Interpret 1 - Normal Hypokinetic 3 - Akinetic Dyskinetic 3-5moderate 5 - 6-14large Aneurysmal 15-16diffuse Cleve Garrison MD ECHO ORDERABLES * (ABNORMAL) POCT Glucose (04/23/2024 7:38 AM EDT) [facility] Glucose, POC 237(H) 65 - 199 mg/dL [facility] Comment: Supplemental ranges: <140 mg/dL before meals <180 mg/dL all other times of the day Blood 04/23/2024 7:38 AM EDT 04/23/2024 7:38 AM EDT Kristi Renae MD POINT OF CARE TEST O RDERABLES [facility] [place] [address] * (ABNORMAL) Differential, Automated (04/23/2024 4:22 AM EDT) [facility] Neutrophil % 56.1 % [facility] Neutrophil Absolute 5.53 1.70 - 6.10 x10(3)/mc L [facility] Lymph % 21.0 % [facility] Lymphocytes Abs 2.1 0.9 - 3.2 x10(3)/mc L [facility] Monocyte % 18.3 % [facility] Monocyte Abs 1.8(H) 0.3 - 0.9 x10(3)/mc L [facility] Eos % 3.5 % [facility] Eosinophils Abs 0.4 0.0 - 0.4 x10(3)/mc L [facility] Basophil % 0.7 % [facility] Baso Absolute 0.1 0.0 - 0.1 x10(3)/[facility] Immature Gran % 0.40 % [facility] Comment: Immature granulocytes(IG's)percentage and absolute count will include metamyelocytes, myelocytes, and promyelocytes. Blood smears from CBCs yielding IG's will be scanned manually for concordance. If this scan disagrees with the automated IG or if promyelocytes are noted, a manual differential will be performed. Immature Gran Absolute 0.04 0.00 - 0.04 x10(3)/[facility] Blood 04/23/2024 4:22 AM EDT 04/23/2024 5:14 AM EDT Narrative Resulting Agency Comment Spec In Lab Nikky Rao MD HEMATOLOGY ORDERA BLES [facility] [place] [address] * (ABNORMAL) Hemogram (04/23/2024 4:22 AM EDT) White Blood Cell 9.9(H) 4.0 - 9.5 x10(3)/[facility] Red Blood Cell 3.32(L) 4.58 - 5.54 x10(6)/[facility] Hemoglobin 9.1(L) 13.7 - 16.5 g/dL [facility] Hematocrit 30.7(L) 40.5 - 48.5 % [facility] Mean Cell Volume 92.5 82.9 - 93.1 fL [facility] Mean Cell Hemoglobin 27.4(L) 27.5 - 32.1 pg [facility] Mean Cell Hemoglobin Concentration 29.6(L) 32.0 - 35.7 g/dL [facility] Platelet 346 145 - 357 x10(3)/[facility] RDW Standard Deviation 55.0(H) 36.0 - 45.0 fL [facility] RDW coefficient of variation 16.1(H) 11.4 - 13.8 % [facility] Mean Platelet Volume 11.6 7.6 - 12.9 fL [facility] NRBC% auto 0.0 % [facility] NRBC Absolute 0.000 0.000 - 0.000 x10(3)/mc L [facility] Blood 04/23/2024 4:22 AM EDT 04/23/2024 5:14 AM EDT Narrative Resulting Agency Comment Spec In Lab Nikky Rao MD HEMATOLOGY ORDERA BLES Performing Organization Address City/[facility]/ZIP Co de Phone Number [facility] [place] [place] [address] * (ABNORMAL) Phosphorus (04/23/2024 4:22 AM EDT) Phosphorus 5.6(H) 2.5 - 4.5 mg/dL [facility] Blood 04/23/2024 4:22 AM EDT 04/23/2024 5:14 AM EDT Narrative Resulting Agency Comment Spec In Lab Kristi Renae MD CHEMISTRY ORDERABLES Performing Organization Address City/[facility]/ZIP Co de Phone Number [facility] [place] [address] * Magnesium (04/23/2024 4:22 AM EDT) Magnesium 0.88 0.69 - 1.07 mmol/L [facility] Blood 04/23/2024 4:22 AM EDT 04/23/2024 5:14 AM EDT Narrative Resulting Agency Comment Spec In Lab Kristi Renae MD CHEMISTRY ORDERABLES Performing Organization Address City/[facility]/ZIP Co de Phone Number [facility] [place] [address] * (ABNORMAL) Basic Metabolic Panel (non-fasting) (04/23/2024 4:22 AM EDT) Glucose 321(H) 65 - 199 mg/dL [facility] Comment:Diabetes: >=200 mg/d L plus symptoms Blood Urea Nitrogen 39(H) 10 - 20 mg/dL [facility] Creatinine 5.67(H) 0.80 - 1.50 mg/dL [facility] Comment:result rechecked- Sodium 137 135 - 145 mmol/L [facility] Potassium 4.7 3.5 - 5.0 mmol/L [facility] Comment: Please note: ??Patients with WBC >100,000 may have falsely elevated Potassium levels. ??For accurate Potassium quantification in these patients send serum separator tube (gold top) for subsequent determinations. ??Contact the Clinical Chemistry Laboratory if there are any questions. Chloride 97(L) 98 - 107 mmol/L [facility] Carbon Dioxide 28 22 - 31 mmol/L [facility] Anion Gap 12 5 - 15 mmol/L [facility] Calcium 9.1 8.5 - 10.5 mg/dL [facility] Est Glomerular Filtration Rate 11(L) >=60 mL/min/1. 73 m?? [facility] Comment: This patient's estimated GFR was [...] and symptoms in addition to eGFR. Blood 04/23/2024 4:22 AM EDT 04/23/2024 5:14 AM EDT Narrative Resulting Agency Comment Spec In Lab Sourav Bryson MD CHEMISTRY ORDERABLES Performing Organization Address [facility] Co de Phone Number [facility] [place] [place] [address] * (ABNORMAL) POCT Glucose (04/23/2024 4:21 AM EDT) Glucose, POC 300(H) 65 - 199 mg/dL [facility] Comment: Supplemental ranges: <140 mg/dL before meals <180 mg/dL all other times of the day Blood 04/23/2024 4:21 AM EDT 04/23/2024 4:21 AM EDT Kristi Renae MD POINT OF CARE TEST O CARMELITA Performing Organization Address [facility] Co de Phone Number [facility] [place] [place] [address] * (ABNORMAL) POCT Glucose (04/23/2024 2:45 AM EDT) Glucose, POC 326(H) 65 - 199 mg/dL [facility] Comment: Supplemental ranges: <140 mg/dL before meals <180 mg/dL all other times of the day Blood 04/23/2024 2:45 AM EDT 04/23/2024 2:45 AM EDT Kristi Renae MD POINT OF CARE TEST O RDLIEN Performing Organization Address [facility] Co de Phone Number [facility] [place] [place] [address] * (ABNORMAL) POCT Glucose (04/22/2024 11:54 PM EDT) Glucose, POC 366(H) 65 - 199 mg/dL [facility] Comment: Supplemental ranges: <140 mg/dL before meals <180 mg/dL all other times of the day Blood 04/22/2024 11:5 4 PM EDT 04/22/2024 11:54 PM EDT Kristi Renae MD POINT OF CARE TEST O RDERABLES Performing Organization Address [facility] Co de Phone Number [facility] [place] [address] * (ABNORMAL) POCT Glucose (04/22/2024 10:10 PM EDT) Glucose, POC 390(H) 65 - 199 mg/dL [facility] Comment: Supplemental ranges: <140 mg/dL before meals <180 mg/dL all other times of the day Blood 04/22/2024 10:1 0 PM EDT 04/22/2024 10:10 PM EDT Kristi Renae MD POINT OF CARE TEST O CARMELITA Performing Organization Address [facility] Co de Phone Number [facility] [place] [address] * (ABNORMAL) POCT Glucose (04/22/2024 8:19 PM EDT) Glucose, POC 319(H) 65 - 199 mg/dL [facility] Comment: Supplemental ranges: <140 mg/dL before meals <180 mg/dL all other times of the day Blood 04/22/2024 8:19 PM EDT 04/22/2024 8:19 PM EDT Kristi Renae MD POINT OF CARE TEST O RDERAKEREN Performing Organization Address [facility] Co de Phone Number [facility] [place] [address] * (ABNORMAL) POCT Glucose (04/22/2024 4:48 PM EDT) Glucose, POC 256(H) 65 - 199 mg/dL [facility] Comment: Supplemental ranges: <140 mg/dL before meals <180 mg/dL all other times of the day Blood 04/22/2024 4:48 PM EDT 04/22/2024 4:48 PM EDT Kristi Renae MD POINT OF CARE TEST O RDERABLES Performing Organization Address [facility] Phone Number [facility] [place] [address] * Vancomycin Level, Random (04/22/2024 12:24 PM EDT) Pathologist [facility] Vancomycin, Random 15.6 mg/L [facility] Comment: This level is for determination of the patient's vancomycin wlib-ottct-htj-curve (AUC) value. Contact the inpatient pharmacy for interpretation. Blood 04/22/2024 12:2 4 PM EDT 04/22/2024 12:32 PM EDT Kristi Renae MD CHEMISTRY ORDERABLES Performing Organization Address [facility] Phone Number [facility] [place] [address] * (ABNORMAL) POCT Glucose (04/22/2024 12:09 PM EDT) [facility] Glucose, POC 202(H) 65 - 199 mg/dL [facility] Comment: Supplemental ranges: <140 mg/dL before meals <180 mg/dL all other times of the day Blood 04/22/2024 12:0 9 PM EDT 04/22/2024 12:09 PM EDT Kristi Renae MD POINT OF CARE TEST O RDERABLES Performing Organization Address [facility] Co de Phone Number [facility] [place] [address] * EKG 12 Lead (04/22/2024 10:51 AM EDT) [facility] Ventricular rate 108 BPM MUSE SYSTEM QRS Duration 88 ms MUSE SYSTEM Q-T Interval 358 ms MUSE SYSTEM QTC Calculated (Bezet) 479 ms MUSE SYSTEM Calculated R [place] 8 degrees MUSE SYSTEM Calculated T [place] 68 degrees MUSE SYSTEM INTERPRETATION Atrial fibrillation with rapid ventricular response Abnormal ECG When compared with ECG of 27-SAURABH-2024 18:34, Atrial fibrillation has replaced Sinus rhythm Questionable change in QRS axis Confirmed by MD Monica, [place] ([id number]) on 04/26/2024 4:32:43 PM MUSE SYSTEM 04/22/2024 10:5 1 AM EDT 04/26/2024 4:32 PM EDT Dariana Albarado MONA ECG ORDERABLES MUSE SYSTEM * POCT Glucose (04/22/2024 7:48 AM EDT) Glucose, POC 196 65 - 199 mg/dL [facility] Comment: Supplemental ranges: <140 mg/dL before meals <180 mg/dL all other times of the day Blood 04/22/2024 7:48 AM EDT 04/22/2024 7:48 AM EDT Kristi Renae MD POINT OF CARE TEST O RDERAKEREN Performing Organization Address [facility] Co de Phone Number [facility] [place] [address] * POCT Glucose (04/22/2024 4:41 AM EDT) Glucose, POC 176 65 - 199 mg/dL [facility] Comment: Supplemental ranges: <140 mg/dL before meals <180 mg/dL all other times of the day Blood 04/22/2024 4:41 AM EDT 04/22/2024 4:41 AM EDT Kristi Renae MD POINT OF CARE TEST O RDERAKEREN Performing Organization Address [facility] Co de Phone Number [facility] [place] [address] * (ABNORMAL) Phosphorus (04/22/2024 4:36 AM EDT) Phosphorus 7.9(H) 2.5 - 4.5 mg/dL [facility] Blood Venous Draw / Unknown 04/22/2024 4:36 AM EDT 04/22/2024 5:01 AM EDT Narrative Resulting Agency Comment Spec In Lab Russell Cohen MD CHEMISTRY ORDERA BLES Performing Organization Address [facility]/ZIP Co de Phone Number [facility] [place] [address] * Magnesium (04/22/2024 4:36 AM EDT) Pathologist [facility] Magnesium 0.86 0.69 - 1.07 mmol/L [facility] Blood Venous Draw / Unknown 04/22/2024 4:36 AM EDT 04/22/2024 5:01 AM EDT Narrative Resulting Agency Comment Spec In Lab Russell Cohen MD CHEMISTRY ORDERA BLES Performing Organization Address [facility] Co de Phone Number [facility] [place] [address] * Scan, Peripheral Blood (04/22/2024 4:36 AM EDT) Pathologist [facility] Plat estimate Normal [facility] RBC Morphology Abnormal [facility] Hypochromia Slight [facility] Blood 04/22/2024 4:36 AM EDT 04/22/2024 4:56 AM EDT Narrative Resulting Agency Comment Spec In Lab Nikky Rao MD HEMATOLOGY ORDERA BLES Performing Organization Address [facility]/ZIP Co de Phone Number [facility] [place] [address] * (ABNORMAL) Differential, Automated (04/22/2024 4:36 AM EDT) [facility] Neutrophil % 71.9 % [facility] Neutrophil Absolute 10.83(H) 1.70 - 6.10 x10(3)/mc L [facility] Lymph % 11.3 % [facility] Lymphocytes Abs 1.7 0.9 - 3.2 x10(3)/ L [facility] Monocyte % 14.2 % [facility] Monocyte Abs 2.1(H) 0.3 - 0.9 x10(3)/ L [facility] Eos % 1.7 % [facility] Eosinophils Abs 0.2 0.0 - 0.4 x10(3)/ L [facility] Basophil % 0.4 % [facility] Baso Absolute 0.1 0.0 - 0.1 x10(3)/[facility] Immature Gran % 0.50 % [facility] Comment: Immature granulocytes(IG's)percentage and absolute count will include metamyelocytes, myelocytes, and promyelocytes. Blood smears from CBCs yielding IG's will be scanned manually for concordance. If this scan disagrees with the automated IG or if promyelocytes are noted, a manual differential will be performed. Immature Gran Absolute 0.07(H) 0.00 - 0.04 x10(3)/ L [facility] Blood 04/22/2024 4:36 AM EDT 04/22/2024 4:56 AM EDT Narrative Resulting Agency Comment Spec In Lab Nikyk Rao MD HEMATOLOGY ORDERA BLES Performing Organization Address City/State/[facility] Co de Phone Number [facility] [place] [address] * (ABNORMAL) Hemogram (04/22/2024 4:36 AM EDT) White Blood Cell 15.0(H) 4.0 - 9.5 x10(3)/[facility] Red Blood Cell 3.08(L) 4.58 - 5.54 x10(6)/ L [facility] Hemoglobin 8.5(L) 13.7 - 16.5 g/dL [facility] Hematocrit 28.6(L) 40.5 - 48.5 % [facility] Mean Cell Volume 92.9 82.9 - 93.1 fL [facility] Mean Cell Hemoglobin 27.6 27.5 - 32.1 pg [facility] Mean Cell Hemoglobin Concentration 29.7(L) 32.0 - 35.7 g/dL [facility] Platelet 328 145 - 357 x10(3)/mc L [facility] RDW Standard Deviation 54.1(H) 36.0 - 45.0 [facility] RDW coefficient of variation 15.9(H) 11.4 - 13.8 % [facility] Mean Platelet Volume 11.3 7.6 - 12.9 [facility] NRBC% auto 0.0 % [facility] NRBC Absolute 0.000 0.000 - 0.000 x10(3)/mc L [facility] Blood 04/22/2024 4:36 AM EDT 04/22/2024 4:56 AM EDT Narrative Resulting Agency Comment Spec In Lab Nikky Rao MD HEMATOLOGY ORDERA BLES [facility] [place] [address] * (ABNORMAL) Basic Metabolic Panel (non-fasting) (04/22/2024 4:36 AM EDT) Glucose 195 65 - 199 mg/dL [facility] Comment:Diabetes: >=200 mg/d L plus symptoms Blood Urea Nitrogen 39(H) 10 - 20 mg/dL [facility] Creatinine 6.97(H) 0.80 - 1.50 mg/dL [facility] Comment:result rechecked-bz Sodium 138 135 - 145 mmol/L [facility] Potassium 5.3(H) 3.5 - 5.0 mmol/L [facility] Comment: Please note: ??Patients with WBC >100,000 may have falsely elevated Potassium levels. ??For accurate Potassium quantification in these patients send serum separator tube (gold top) for subsequent determinations. ??Contact the Clinical Chemistry Laboratory if there are any questions. Chloride 99 98 - 107 mmol/L [facility] Carbon Dioxide 22 22 - 31 mmol/L [facility] Anion Gap 17(H) 5 - 15 mmol/L [facility] Calcium 8.4(L) 8.5 - 10.5 mg/dL [facility] Est Glomerular Filtration Rate 9(L) >=60 mL/min/1. 73 m?? [facility] Comment: This patient's estimated GFR was [...] and symptoms in addition to eGFR. Blood 04/22/2024 4:36 AM EDT 04/22/2024 4:56 AM EDT Narrative Resulting Agency Comment Spec In Lab Sourav Bryson MD CHEMISTRY ORDERABLES Performing Organization Address City/[facility] Co de Phone Number [facility] [place] [address] * POCT Glucose (04/21/2024 11:01 PM EDT) Glucose, POC 147 65 - 199 mg/dL [facility] Comment: Supplemental ranges: <140 mg/dL before meals <180 mg/dL all other times of the day Blood 04/21/2024 11:0 1 PM EDT 04/21/2024 11:01 PM EDT Kristi Renae MD POINT OF CARE TEST O RDERABLES [facility] [address] * Type and Screen Validity (04/21/2024 7:56 PM EDT) Pathologist [facility] T&S only valid at [facility] Comment:This Type and Screen result is only valid at the [facility] Blood 04/21/2024 7:56 PM EDT 04/21/2024 7:56 PM EDT Narrative Resulting Agency Comment Spec In Lab Jules Osborne MD BLOOD BANK LAB ORD ERABLES Performing Organization Address City/[facility]/ZIP Co de Phone Number [facility] [place] [address] * Type and screen ([facility]/CGP/CHASE) (04/21/2024 7:56 PM EDT) [facility] ABORH Type A POSITIVE [facility] Patient BB History Found [facility] Expires at [id number] on: 04/24/2024 [facility] Ab Screen Interp Negative [facility] Blood 04/21/2024 7:56 PM EDT 04/21/2024 7:56 PM EDT Narrative [facility] - 04/21/2024 7:56 PM EDT This Type and Screen result is only valid at the [facility] Hospital Resulting Agency Comment Spec In Lab Kristi Renae MD BLOOD BANK LAB ORDER FRANSISCO [facility] [place] [address] * POCT Glucose (04/21/2024 7:30 PM EDT) [facility] Glucose, POC 139 65 - 199 mg/dL [facility] Comment: Supplemental ranges: <140 mg/dL before meals <180 mg/dL all other times of the day Blood 04/21/2024 7:30 PM EDT 04/21/2024 7:30 PM EDT Kristi Renae MD POINT OF CARE TEST O RDERABLES Performing Organization Address City/[facility]/ZIP Co de Phone Number [facility] [place] [address] * POCT Glucose (04/21/2024 5:36 PM EDT) Glucose, POC 140 65 - 199 mg/dL [facility] Comment: Supplemental ranges: <140 mg/dL before meals <180 mg/dL all other times of the day Blood 04/21/2024 5:36 PM EDT 04/21/2024 5:36 PM EDT Kristi Renae MD POINT OF CARE TEST O RDERAKEREN Performing Organization Address [facility]/ZIP Co de Phone Number [facility] [place] [address] * Surgical Pathology Report (04/21/2024 5:35 PM EDT) Final Diagnosis [id number] ? Location: [id number]; 0420; A The signing pathologist has (i) examined the relevant preparation(s) for the specimen(s) and (ii) rendered or confirmed the diagnosis(es). . ?Surgical Pathology DIAGNOSIS A - Right leg; below-knee amputation: ?Chronic ulcerated wound with gangrenous necrosis, heel, with ?involvement of the underlying bone. ?Blood vessels with medial calcification and fibrointimal proliferation: ?Posterior tibial artery: 90%-95% luminal stenosis. ?Anterior tibial artery: 90%-95% luminal stenosis. ?Dorsalis pedis artery: 90%-95% luminal stenosis. ?Largely viable amputation margin. Electronically signed by: ?Jose CID, Kiel Govea Verified: ??05/03/2024 12:50 ??Pathologist Performed at: ??-[facility] Dept. of Pathology, [place] [address] Acupuncturist: Karina Valencia MD, FCAP, ??CLIA Certificate: [id number] SPECIMEN(S) SUBMITTED A - Right leg CLINICAL INFORMATION PROVIDED: Right heel wound. SPECIMEN PROCESSING A - Labeled/Fixative: ?? Right foot, ankle, fresh. Quantity/Size: Single foot length 28.5 cm, leg length 15.1 cm. Tissue Description: Right, below the knee amputation. Margin: Viable. Skin: Gomez-pink with no visible hairs or bruising. ??Large open lesion on right heel. Lesions: Yellow-brown exposed ulcer with overlying pustular exudate measuring 6.9 x 5.6 cm. ??No underlying bone visible. Vessels: ??Posterior tibial artery: Diffusely calcified with luminal stenosis up to 90-95%. ??Anterior tibial artery: Diffusely calcified with luminal stenosis up to 90-95%. ??Dorsalis pedis: Diffusely calcified with luminal stenosis up to 90-95%. Sections/Processi ng: Blocks submitted for decalcification: A3-A4. Dried Yeast Supervisor sections in 4 cassettes as follows: ?A1: ??Skin and muscle section at margin ?A2: ??Ulcer with underlying soft tissue ?A3: ??Bone underlying ulcer ?A4: ??Cross-sections of anterior tibial artery, posterior tibial artery, and ? dorsalis pedis ??JSH/SNS 05/03/2024 12:50 PM EDT [facility] Extremity 04/21/2024 5:35 PM EDT 04/21/2024 5:35 PM EDT Devendra Red MD PATHOLOGY/CYTOLOGY O RDERAKEREN [facility] [place] [id number] * Specimen to Pathology (04/21/2024 5:35 PM EDT) AP Specimen 04/21/2024 5:35 PM EDT 04/21/2024 5:35 PM EDT Narrative [facility] - 04/21/2024 5:35 PM EDT Specimen requisition ordered. ??Separate Pathology report to follow Kristi Renae MD PATHOLOGY/CYTOLOGY O RDERABLES Performing Organization Address [facility]/[place] [address] * Anaerobic Culture (04/21/2024 5:07 PM EDT) Anaerobic Culture No anaerobic organisms isolated [facility] Drainage RIGHT HEEL STRUCTURE / Unknown 04/21/2024 5:07 PM EDT 04/21/2024 7:39 PM EDT Narrative Resulting Agency Comment Spec In Lab Devendra Red MD MICROBIOLOGY - GENER AL ORDERABLES Performing Organization Address [facility] Co de Phone Number [facility] [place] [address] * (ABNORMAL) Abscess/Wound Aspirate Culture (04/21/2024 5:07 PM EDT) Abscess/Wound Aspirate Culture Many mixed bacterial morphotypes suggestive of normal cutaneous moy including : mixed Gram Negative organisms (A) [facility] Gram Stain Rare Neutrophils Few Gram Positive Cocci seen (A) [facility] Organism Gram Positive Cocci(A) [facility] Drainage RIGHT HEEL STRUCTURE / Unknown 04/21/2024 5:07 PM EDT 04/21/2024 7:39 PM EDT Narrative Resulting Agency Comment Spec In Lab Devendra Red MD MICROBIOLOGY - GENER AL ORDERABLES Performing Organization Address [facility]/ZIP Co de Phone Number [facility] [place] [address] * Magnesium (04/21/2024 4:24 PM EDT) Magnesium 0.82 0.69 - 1.07 mmol/L [facility] Blood 04/21/2024 4:24 PM EDT 04/21/2024 4:37 PM EDT Narrative Resulting Agency Comment Spec In Lab Kristi Renae MD CHEMISTRY ORDERABLES Performing Organization Address [facility] Co de Phone Number [facility] [place] [address] * (ABNORMAL) Phosphorus (04/21/2024 4:24 PM EDT) Phosphorus 4.7(H) 2.5 - 4.5 mg/dL [facility] Blood 04/21/2024 4:24 PM EDT 04/21/2024 4:37 PM EDT Narrative Resulting Agency Comment Spec In Lab Kristi Renae MD CHEMISTRY ORDERABLES Performing Organization Address [facility] Co de Phone Number [facility] [place] [address] * (ABNORMAL) Basic Metabolic Panel (non-fasting) (04/21/2024 4:24 PM EDT) Glucose 142 65 - 199 mg/dL [facility] Comment:Diabetes: >=200 mg/d L plus symptoms Blood Urea Nitrogen 32(H) 10 - 20 mg/dL [facility] Creatinine 5.70(H) 0.80 - 1.50 mg/dL [facility] Comment:result rechecked-KD Sodium 137 135 - 145 mmol/L [facility] Potassium 4.6 3.5 - 5.0 mmol/L [facility] Comment: Please note: ??Patients with WBC >100,000 may have falsely elevated Potassium levels. ??For accurate Potassium quantification in these patients send serum separator tube (gold top) for subsequent determinations. ??Contact the Clinical Chemistry Laboratory if there are any questions. Chloride 97(L) 98 - 107 mmol/L [facility] [facility] Carbon Dioxide 21(L) 22 - 31 mmol/L [facility] Anion Gap 19(H) 5 - 15 mmol/L [facility] Calcium 8.8 8.5 - 10.5 mg/dL [facility] Est Glomerular Filtration Rate 11(L) >=60 mL/min/1. 73 m?? [facility] Comment: This patient's estimated GFR was [...] and symptoms in addition to eGFR. Blood 04/21/2024 4:24 PM EDT 04/21/2024 4:37 PM EDT Narrative Resulting Agency Comment Spec In Lab Kristi Renae MD CHEMISTRY ORDERABLES [facility] [place] [address] * (ABNORMAL) Hemogram (04/21/2024 4:24 PM EDT) White Blood Cell 19.8(H) 4.0 - 9.5 x10(3)/mc L [facility] Red Blood Cell 3.35(L) 4.58 - 5.54 x10(6)/mc L [facility] Hemoglobin 9.4(L) 13.7 - 16.5 g/dL [facility] Hematocrit 29.8(L) 40.5 - 48.5 % [facility] Comment: This result has been called to DARIANA by Iliana Rangel on 04 21 2024 at 1644, and has been read back. OR said they were not waiting for results Mean Cell Volume 89.0 82.9 - 93.1 fL [facility] Mean Cell Hemoglobin 28.1 27.5 - 32.1 pg [facility] Mean Cell Hemoglobin Concentration 31.5(L) 32.0 - 35.7 g/dL [facility] Platelet 348 145 - 357 x10(3)/mc L [facility] RDW Standard Deviation 51.5(H) 36.0 - 45.0 [facility] RDW coefficient of variation 15.8(H) 11.4 - 13.8 % [facility] Mean Platelet Volume 11.2 7.6 - 12.9 [facility] NRBC% auto 0.0 % [facility] NRBC Absolute 0.000 0.000 - 0.000 x10(3)/mc L [facility] Blood 04/21/2024 4:24 PM EDT 04/21/2024 4:37 PM EDT Narrative Resulting Agency Comment Spec In Lab Kristi Renae MD HEMATOLOGY ORDERABLE S [facility] [place] [address] * POCT Glucose (04/21/2024 4:07 PM EDT) Glucose, POC 137 65 - 199 mg/dL [facility] Comment: Supplemental ranges: <140 mg/dL before meals <180 mg/dL all other times of the day Blood 04/21/2024 4:07 PM EDT 04/21/2024 4:07 PM EDT Kristi Renae MD POINT OF CARE TEST O RDERABLES [facility] [place] [address] * POCT Glucose (04/21/2024 11:25 AM EDT) Glucose, POC 183 65 - 199 mg/dL [facility] Comment: Supplemental ranges: <140 mg/dL before meals <180 mg/dL all other times of the day Blood 04/21/2024 11:2 5 AM EDT 04/21/2024 11:25 AM EDT Kristi Renae MD POINT OF CARE TEST O RDERAKEREN Performing Organization Address City/[facility] Co de Phone Number [facility] [place] [address] * POCT Glucose (04/21/2024 7:51 AM EDT) Glucose, POC 172 65 - 199 mg/dL [facility] Comment: Supplemental ranges: <140 mg/dL before meals <180 mg/dL all other times of the day Blood 04/21/2024 7:51 AM EDT 04/21/2024 7:51 AM EDT Kristi Renae MD POINT OF CARE TEST O RDERAKEREN Performing Organization Address [facility] Co de Phone Number [facility] [place] [address] * Lavender Tube HOLD (04/21/2024 7:39 AM EDT) [facility] Lavender Hold Sample in lab. [facility] Blood Venous Draw / Unknown 04/21/2024 7:39 AM EDT 04/21/2024 7:[address] Rei Gasca MD HEMATOLOGY ORDERABLE S Performing Organization Address City/[facility] Co de Phone Number [facility] [place] [address] * Vancomycin Level, Random (04/21/2024 7:39 AM EDT) Pathologist [facility] Vancomycin, Random 14.1 mg/L [facility] Comment: This level is for determination of the patient's vancomycin egrz-[id number]-[id number]-curve (AUC) value. Contact the inpatient pharmacy for interpretation. Blood 04/21/2024 7:39 AM EDT 04/21/2024 7:48 AM EDT Sourav Bryson MD CHEMISTRY ORDERABLES Performing Organization Address [facility] Co de Phone Number [facility] [place] [address] * (ABNORMAL) POCT Glucose (04/21/2024 4:13 AM EDT) Glucose, POC 207(H) 65 - 199 mg/dL [facility] Comment: Supplemental ranges: <140 mg/dL before meals <180 mg/dL all other times of the day Blood 04/21/2024 4:13 AM EDT 04/21/2024 4:13 AM EDT Kristi Renae MD POINT OF CARE TEST O RDLIEN Performing Organization Address [facility] Co de Phone Number [facility] [place] [address] * POCT Glucose (04/21/2024 1:54 AM EDT) Glucose, POC 183 65 - 199 mg/dL [facility] Comment: Supplemental ranges: <140 mg/dL before meals <180 mg/dL all other times of the day Blood 04/21/2024 1:54 AM EDT 04/21/2024 1:54 AM EDT Kristi Renae MD POINT OF CARE TEST O RDLIEN Performing Organization Address [facility] Co de Phone Number [facility] [place] [address] * POCT Glucose (04/20/2024 11:59 PM EDT) Glucose, POC 172 65 - 199 mg/dL [facility] Comment: Supplemental ranges: <140 mg/dL before meals <180 mg/dL all other times of the day Blood 04/20/2024 11:5 9 PM EDT 04/20/2024 11:59 PM EDT Kristi Renae MD POINT OF CARE TEST O RDERABLES [facility] [place] [address] * (ABNORMAL) BLOOD GAS 2 VENOUS (04/20/2024 11:34 PM EDT) pH, Venous 7.37 7.32 - 7.42 [facility] PCO2, Venous 44 41 - 51 mmHg [facility] PO2, Venous 41(H) 25 - 40 mmHg [facility] Bicarbonate, Venous 24.9 mmol/L [facility] Base Excess, Venous -0.4 mmol/L [facility] Hgb Blood Gas 9.6(L) 13.7 - 16.5 g/dL [facility] Oxyhemoglobin, Venous 69.9 % [facility] Carboxyhemoglob in, Venous 1.1 % [facility] Comment: Nonsmokers: 0.5-1.5% COHB Smokers: Variable, but usually less than 10% Toxic: 20-30% COHB Lethal: Greater than 60% COHB Methemoglobin, Venous 0.6 <=1.5 % [facility] Na Whole Blood 130(L) 135 - 145 mmol/L [facility] K Whole Blood 4.9 3.5 - 5.0 mmol/L [facility] Comment: Please note: Patients with WBC >100,000 may have falsely elevated Potassium levels. Contact the Clinical Chemistry Laboratory if there are any questions. ICa Whole Blood 1.13(L) 1.15 - 1.33 mmol/L [facility] Comment: Note: ??Total bilirubin higher than 20 mg/dL may lead to falsely low ionized calcium. CL Whole Blood 95(L) 98 - 107 mmol/L [facility] Gluc Whole Bld 182 65 - 199 mg/dL [facility] Comment:Diabetes: >=200 mg/d L plus symptoms Lactate WB 1.0 0.5 - 2.2 mmol/L [facility] Blood Gas Source Venous [facility] Blood 04/20/2024 11:3 4 PM EDT 04/20/2024 11:34 PM EDT Kristi Renae MD POINT OF CARE TEST O RDERABLES [facility] [place] [address] * (ABNORMAL) Differential, Automated (04/20/2024 11:32 PM EDT) Neutrophil % 72.5 % [facility] Neutrophil Absolute 12.43(H) 1.70 - 6.10 x10(3)/mc L [facility] Lymph % 8.9 % [facility] Lymphocytes Abs 1.5 0.9 - 3.2 x10(3)/mc L [facility] Monocyte % 16.9 % [facility] Monocyte Abs 2.9(H) 0.3 - 0.9 x10(3)/mc L [facility] Eos % 0.8 % [facility] Eosinophils Abs 0.1 0.0 - 0.4 x10(3)/mc L [facility] Basophil % 0.4 % [facility] Baso Absolute 0.1 0.0 - 0.1 x10(3)/mc L [facility] Immature Gran % 0.50 % [facility] Comment: Immature granulocytes(IG's)percentage and absolute count will include metamyelocytes, myelocytes, and promyelocytes. Blood smears from CBCs yielding IG's will be scanned manually for concordance. If this scan disagrees with the automated IG or if promyelocytes are noted, a manual differential will be performed. Immature Gran Absolute 0.09(H) 0.00 - 0.04 x10(3)/ L [facility] Blood 04/20/2024 11:3 2 PM EDT 04/20/2024 11:38 PM EDT Narrative Resulting Agency Comment Spec In Lab Nikky Rao MD HEMATOLOGY ORDERA BLES [facility] [place] [place] [address] * (ABNORMAL) Hemogram (04/20/2024 11:32 PM EDT) White Blood Cell 17.1(H) 4.0 - 9.5 x10(3)/[facility] Red Blood Cell 3.20(L) 4.58 - 5.54 x10(6)/[facility] Hemoglobin 8.9(L) 13.7 - 16.5 g/dL [facility] Hematocrit 28.8(L) 40.5 - 48.5 % [facility] Mean Cell Volume 90.0 82.9 - 93.1 fL [facility] Mean Cell Hemoglobin 27.8 27.5 - 32.1 pg [facility] Mean Cell Hemoglobin Concentration 30.9(L) 32.0 - 35.7 g/dL [facility] Platelet 340 145 - 357 x10(3)/[facility] RDW Standard Deviation 52.2(H) 36.0 - 45.0 [facility] RDW coefficient of variation 15.8(H) 11.4 - 13.8 % [facility] Mean Platelet Volume 11.0 7.6 - 12.9 fL [facility] NRBC% auto 0.0 % [facility] NRBC Absolute 0.000 0.000 - 0.000 x10(3)/ L [facility] Blood 04/20/2024 11:3 2 PM EDT 04/20/2024 11:38 PM EDT Narrative Resulting Agency Comment Spec In Lab Nikky Rao MD HEMATOLOGY ORDERA BLES [facility] [place] [address] * (ABNORMAL) Basic Metabolic Panel (non-fasting) (04/20/2024 11:32 PM EDT) Glucose 185 65 - 199 mg/dL [facility] Comment:Diabetes: >=200 mg/d L plus symptoms Blood Urea Nitrogen 42(H) 10 - 20 mg/dL [facility] Creatinine 7.05(H) 0.80 - 1.50 mg/dL [facility] Sodium 132(L) 135 - 145 mmol/L [facility] Potassium 5.1(H) 3.5 - 5.0 mmol/L [facility] Comment: Please note: ??Patients with WBC >100,000 may have falsely elevated Potassium levels. ??For accurate Potassium quantification in these patients send serum separator tube (gold top) for subsequent determinations. ??Contact the Clinical Chemistry Laboratory if there are any questions. Chloride 95(L) 98 - 107 mmol/L [facility] Carbon Dioxide 23 22 - 31 mmol/L [facility] Anion Gap 14 5 - 15 mmol/L [facility] Calcium 8.7 8.5 - 10.5 mg/dL [facility] Est Glomerular Filtration Rate 8(L) >=60 mL/min/1. 73 m?? [facility] Comment: This patient's estimated GFR was [...] and symptoms in addition to eGFR. Blood 04/20/2024 11:3 2 PM EDT 04/20/2024 11:38 PM EDT Narrative Resulting Agency Comment Spec In Lab Kristi Renae MD CHEMISTRY ORDERABLES Performing Organization Address City/[facility]/ZIP Co de Phone Number [facility] [place] [address] * POCT Glucose (04/20/2024 11:07 PM EDT) Glucose, POC 197 65 - 199 mg/dL [facility] Comment: Supplemental ranges: <140 mg/dL before meals <180 mg/dL all other times of the day Blood 04/20/2024 11:0 7 PM EDT 04/20/2024 11:07 PM EDT Kristi Renae MD POINT OF CARE TEST O RDERABLES Performing Organization Address [facility]/ZIP Co de Phone Number [facility] [place] [address] * (ABNORMAL) Phosphorus (04/20/2024 10:17 PM EDT) Phosphorus 5.8(H) 2.5 - 4.5 mg/dL [facility] Blood 04/20/2024 10:1 7 PM EDT 04/20/2024 10:17 PM EDT Narrative Resulting Agency Comment Spec In Lab Sourav Bryson MD CHEMISTRY ORDERABLES Performing Organization Address [facility]/ZIP Co de Phone Number [facility] [place] [address] * Magnesium (04/20/2024 10:17 PM EDT) Magnesium 0.83 0.69 - 1.07 mmol/L [facility] Blood 04/20/2024 10:1 7 PM EDT 04/20/2024 10:17 PM EDT Narrative Resulting Agency Comment Spec In Lab Sourav Bryson MD CHEMISTRY ORDERABLES [facility] [place] [address] * (ABNORMAL) Basic Metabolic Panel (non-fasting) (04/20/2024 10:17 PM EDT) Glucose 195 65 - 199 mg/dL [facility] Comment:Diabetes: >=200 mg/d L plus symptoms Blood Urea Nitrogen 41(H) 10 - 20 mg/dL [facility] Creatinine 6.58(H) 0.80 - 1.50 mg/dL [facility] Sodium 132(L) 135 - 145 mmol/L [facility] Potassium Not Perf 3.5 - 5.0 [facility] Comment: Unable to quantitate due to sample hemolysis. ??Sample redraw suggested. Called by: VERONIQUE, Read back by: Renetta Kaur, Date/Time:04/20/24 22:50. Please note: ??Patients with WBC >100,000 may have falsely elevated Potassium levels. ??For accurate Potassium quantification in these patients send serum separator tube (gold top) for subsequent determinations. ??Contact the Clinical Chemistry Laboratory if there are any questions. Chloride 97(L) 98 - 107 mmol/L [facility] Carbon Dioxide 21(L) 22 - 31 mmol/L [facility] Anion Gap 14 5 - 15 mmol/L [facility] Calcium 8.5 8.5 - 10.5 mg/dL [facility] Est Glomerular Filtration Rate 9(L) >=60 mL/min/1. 73 m?? [facility] Comment: This patient's estimated GFR was [...] and symptoms in addition to eGFR. Blood 04/20/2024 10:1 7 PM EDT 04/20/2024 10:17 PM EDT Narrative Resulting Agency Comment Spec In Lab Sourav Bryson MD CHEMISTRY ORDERABLES Performing Organization Address [facility] Co de Phone Number [facility] [place] [address] * POCT Glucose (04/20/2024 9:56 PM EDT) Glucose, POC 173 65 - 199 mg/dL [facility] Comment: Supplemental ranges: <140 mg/dL before meals <180 mg/dL all other times of the day Blood 04/20/2024 9:56 PM EDT 04/20/2024 9:56 PM EDT Kristi Renae MD POINT OF CARE TEST O RDERAKEREN Performing Organization Address [facility] Co de Phone Number [facility] [place] [address] * POCT Glucose (04/20/2024 7:40 PM EDT) Glucose, POC 153 65 - 199 mg/dL [facility] Comment: Supplemental ranges: <140 mg/dL before meals <180 mg/dL all other times of the day Blood 04/20/2024 7:40 PM EDT 04/20/2024 7:40 PM EDT Kristi Renae MD POINT OF CARE TEST O RDERAKEREN Performing Organization Address [facility] Co de Phone Number [facility] [place] [address] * (ABNORMAL) Differential, Automated (04/20/2024 7:39 PM EDT) Neutrophil % 70.9 % [facility] Neutrophil Absolute 12.08(H) 1.70 - 6.10 x10(3)/[facility] Lymph % 8.6 % [facility] Lymphocytes Abs 1.5 0.9 - 3.2 x10(3)/[facility] Monocyte % 18.9 % [facility] Monocyte Abs 3.2(H) 0.3 - 0.9 x10(3)/[facility] Eos % 0.6 % [facility] Eosinophils Abs 0.1 0.0 - 0.4 x10(3)/[facility] Basophil % 0.4 % [facility] Baso Absolute 0.1 0.0 - 0.1 x10(3)/[facility] Immature Gran % 0.60 % [facility] Comment: Immature granulocytes(IG's)percentage and absolute count will include metamyelocytes, myelocytes, and promyelocytes. Blood smears from CBCs yielding IG's will be scanned manually for concordance. If this scan disagrees with the automated IG or if promyelocytes are noted, a manual differential will be performed. Immature Gran Absolute 0.10(H) 0.00 - 0.04 x10(3)/[facility] Blood 04/20/2024 7:39 PM EDT 04/20/2024 10:34 PM EDT Narrative Resulting Agency Comment Spec In Lab Nikky Rao MD HEMATOLOGY ORDERA BLES [facility] [place] [address] * (ABNORMAL) Hemogram (04/20/2024 7:39 PM EDT) Pathologist [facility] White Blood Cell 17.0(H) 4.0 - 9.5 x10(3)/[facility] Red Blood Cell 2.93(L) 4.58 - 5.54 x10(6)/mc L [facility] Hemoglobin 8.3(L) 13.7 - 16.5 g/dL [facility] Hematocrit 25.9(L) 40.5 - 48.5 % [facility] Mean Cell Volume 88.4 82.9 - 93.1 [facility] Mean Cell Hemoglobin 28.3 27.5 - 32.1 pg [facility] Mean Cell Hemoglobin Concentration 32.0 32.0 - 35.7 g/dL [facility] Platelet 347 145 - 357 x10(3)/[facility] RDW Standard Deviation 52.6(H) 36.0 - 45.0 [facility] RDW coefficient of variation 16.2(H) 11.4 - 13.8 % [facility] Mean Platelet Volume 11.7 7.6 - 12.9 [facility] NRBC% auto 0.0 % [facility] NRBC Absolute 0.000 0.000 - 0.000 x10(3)/[facility] Blood 04/20/2024 7:39 PM EDT 04/20/2024 10:34 PM EDT Narrative Resulting Agency Comment Spec In Lab Nikky Rao MD HEMATOLOGY ORDERA BLES Performing Organization Address City/State/[facility] Co de Phone Number [facility] [place] [address] * EKG 12 Lead (04/20/2024 6:34 PM EDT) Ventricular rate 77 BPM MUSE SYSTEM Atrial Rate 77 BPM MUSE SYSTEM P-R Interval 140 ms MUSE SYSTEM QRS Duration 80 ms MUSE SYSTEM Q-T Interval 390 ms MUSE SYSTEM QTC Calculated (Bezet) 441 ms MUSE SYSTEM Calculated P [place] 70 degrees MUSE SYSTEM Calculated R [place] 70 degrees MUSE SYSTEM Calculated T [place] 55 degrees MUSE SYSTEM INTERPRETATION Normal sinus rhythm Normal ECG When compared with ECG of 18-FEB-2024 14:42, No significant change was found Confirmed by MD Raffi, Oscar (1962) on 04/20/2024 9:23:41 PM MUSE SYSTEM 04/20/2024 6:34 PM EDT 04/20/2024 9:23 PM EDT Pau Burt FULFILLMENT SPECIALIST ECG ORDERABLES MUSE SYSTEM * (ABNORMAL) BLOOD GAS 2 VENOUS (04/20/2024 5:53 PM EDT) pH, Venous 7.41 7.32 - 7.42 [facility] PCO2, Venous 42 41 - 51 mmHg [facility] PO2, Venous 39 25 - 40 mmHg [facility] Bicarbonate, Venous 26.3 mmol/L [facility] Base Excess, Venous 1.6 mmol/L [facility] Hgb Blood Gas 10.1(L) 13.7 - 16.5 g/dL [facility] Oxyhemoglobin, Venous 70.8 % [facility] Carboxyhemoglob in, Venous 2.8 % [facility] Comment: Nonsmokers: 0.5-1.5% COHB Smokers: Variable, but usually less than 10% Toxic: 20-30% COHB Lethal: Greater than 60% COHB Methemoglobin, Venous 0.4 <=1.5 % [facility] Na Whole Blood 131(L) 135 - 145 mmol/L [facility] K Whole Blood 5.2(H) 3.5 - 5.0 mmol/L [facility] Comment: Please note: Patients with WBC >100,000 may have falsely elevated Potassium levels. Contact the Clinical Chemistry Laboratory if there are any questions. ICa Whole Blood 1.11(L) 1.15 - 1.33 mmol/L [facility] Comment: Note: ??Total bilirubin higher than 20 mg/dL may lead to falsely low ionized calcium. CL Whole Blood 94(L) 98 - 107 mmol/L [facility] Gluc Whole Bld 174 65 - 199 mg/dL [facility] Comment:Diabetes: >=200 mg/d L plus symptoms Lactate WB 1.1 0.5 - 2.2 mmol/L [facility] Blood Gas Source Venous [facility] Blood 04/20/2024 5:53 PM EDT 04/20/2024 5:53 PM EDT Sourav Bryson MD POINT OF CARE TEST O RDERABLES [facility] [place] [address] * XR Ankle Min 3 views Right (Generic) (04/20/2024 5:44 PM EDT) WORKSTATION ID [id number] RAD Anatomical Region Laterality Modality Ankle Right Digital Radiogra phy Impressions 04/20/2024 6:28 PM EDT Known wound at the heel of the right foot. No discrete evidence of osteomyelitis within the limitation of radiography. Thank you for letting us participate in the care of this patient. ??If you are a health care provider and have any questions regarding this report, please contact the number below. ??For patients who have questions please contact the health career development facilitator that requested your imaging first. ? Narrative 04/20/2024 6:28 PM EDT EXAMINATION: XR ANKLE MIN 3 VIEWS RIGHT (GENERIC), XR FOOT MIN 3 VIEWS RIGHT (GENERIC) CLINICAL HISTORY: chronic wound on heel/ankle, c/f osteo TECHNIQUE: 3 views RIGHT ankle, 3 views of the right foot COMPARISON: 02/18/2024 FINDINGS: Soft tissue defect with air inclusions at the heel of the right foot overlying the dorsal aspect of the calcaneus. There is no overt osteolysis or cortical interruption. Incidentally noted small dorsal calcaneal spur. Distal tibia and fibula are intact. Alignment of the ankle mortise is normal. No ankle joint effusion. Extensive atherosclerotic calcifications of the vasculature. Procedure Note Ludmila Patton MD - 04/20/2024 EXAMINATION: XR ANKLE MIN 3 VIEWS RIGHT (GENERIC), XR FOOT MIN 3 VIEWSRIGHT (GENERIC) CLINICAL HISTORY: chronic wound on heel/ankle, c/f osteo TECHNIQUE: 3 views RIGHT ankle, 3 views of the right foot COMPARISON: 02/18/2024 FINDINGS: Soft tissue defect with air inclusions at the heel of the right footoverlying the dorsal aspect of the calcaneus. There is no overt osteolysis orcortical interruption. Incidentally noted small dorsal calcaneal spur. Distal tibia and fibula are intact. Alignment of the ankle mortise isnormal. No ankle joint effusion. Extensive atherosclerotic calcifications of the vasculature. IMPRESSION Known wound at the heel of the right foot. No discrete evidence of osteomyelitis within the limitation ofradiography. Thank you for letting us participate in the care of this patient. If youare a health care provider and have any questions regarding this report,please contact the number below. For patients who have questions please contactthe health career development facilitator that requested your imaging first. Electronically signed by: Ludmila Shea MD, [facility] ([phone]), at 04/20/2024 6:28 PM Macario Thomas MD IMG DX ORDERABLES * XR Foot Min 3 views Right (Generic) (04/20/2024 5:44 PM EDT) WORKSTATION ID [id number] RAD Anatomical Region Laterality Modality Foot Right Digital Radiogra phy Impressions 04/20/2024 6:28 PM EDT Known wound at the heel of the right foot. No discrete evidence of osteomyelitis within the limitation of radiography. Thank you for letting us participate in the care of this patient. ??If you are a health care provider and have any questions regarding this report, please contact the number below. ??For patients who have questions please contact the health career development facilitator that requested your imaging first. ? Narrative 04/20/2024 6:28 PM EDT EXAMINATION: XR ANKLE MIN 3 VIEWS RIGHT (GENERIC), XR FOOT MIN 3 VIEWS RIGHT (GENERIC) CLINICAL HISTORY: chronic wound on heel/ankle, c/f osteo TECHNIQUE: 3 views RIGHT ankle, 3 views of the right foot COMPARISON: 02/18/2024 FINDINGS: Soft tissue defect with air inclusions at the heel of the right foot overlying the dorsal aspect of the calcaneus. There is no overt osteolysis or cortical interruption. Incidentally noted small dorsal calcaneal spur. Distal tibia and fibula are intact. Alignment of the ankle mortise is normal. No ankle joint effusion. Extensive atherosclerotic calcifications of the vasculature. Procedure Note Ludmila Patton MD - 04/20/2024 EXAMINATION: XR ANKLE MIN 3 VIEWS RIGHT (GENERIC), XR FOOT MIN 3 VIEWSRIGHT (GENERIC) CLINICAL HISTORY: chronic wound on heel/ankle, c/f osteo TECHNIQUE: 3 views RIGHT ankle, 3 views of the right foot COMPARISON: 02/18/2024 FINDINGS: Soft tissue defect with air inclusions at the heel of the right footoverlying the dorsal aspect of the calcaneus. There is no overt osteolysis orcortical interruption. Incidentally noted small dorsal calcaneal spur. Distal tibia and fibula are intact. Alignment of the ankle mortise isnormal. No ankle joint effusion. Extensive atherosclerotic calcifications of the vasculature. IMPRESSION Known wound at the heel of the right foot. No discrete evidence of osteomyelitis within the limitation ofradiography. Thank you for letting us participate in the care of this patient. If youare a health care provider and have any questions regarding this report,please contact the number below. For patients who have questions please contactthe health career development facilitator that requested your imaging first. Electronically signed by: Ludmila Shea MD, [facility] ([phone]), at 04/20/2024 6:28 PM Macario Thomas MD IMG DX ORDERABLES * XR Chest One View (04/20/2024 5:44 PM EDT) WORKSTATION ID [id number] RAD Anatomical Region Laterality Modality Chest N/A Digital Radiogra phy Impressions 04/20/2024 6:31 PM EDT Borderline size of the heart. Mild pulmonary vascular congestion without overt edema. No effusion. Thank you for letting us participate in the care of this patient. ??If you are a health care provider and have any questions regarding this report, please contact the number below. ??For patients who have questions please contact the health career development facilitator that requested your imaging first. ? Narrative 04/20/2024 6:31 PM EDT EXAMINATION: XR CHEST ONE VIEW CLINICAL HISTORY: hypoxic, febrile, c/f PNA TECHNIQUE: 1 view of the chest COMPARISON: 10/17/2018 FINDINGS: Mild pulmonary vascular congestion. Borderline size of the heart. No pleural effusion. No acute osseous abnormality. Procedure Note Ludmila Patton MD - 04/20/2024 EXAMINATION: XR CHEST ONE VIEW CLINICAL HISTORY: hypoxic, febrile, c/f PNA TECHNIQUE: 1 view of the chest COMPARISON: 10/17/2018 FINDINGS: Mild pulmonary vascular congestion. Borderline size of the heart. No pleural effusion. No acute osseousabnormality. IMPRESSION Borderline size of the heart. Mild pulmonary vascular congestion without overt edema. No effusion. Thank you for letting us participate in the care of this patient. If youare a health care provider and have any questions regarding this report,please contact the number below. For patients who have questions please contactthe health career development facilitator that requested your imaging first. Electronically signed by: Ludmila Shea MD, [facility] ([phone]), at 04/20/2024 6:31 PM Macario Thomas MD IMG DX ORDERABLES * Scan, Peripheral Blood (04/20/2024 5:09 PM EDT) Plat estimate Increased [facility] RBC Morphology Normal [facility] Blood 04/20/2024 5:09 PM EDT 04/20/2024 5:21 PM EDT Narrative Resulting Agency Comment Spec In Lab Pau Burt APRN HEMATOLOGY ORDERA BLES Performing Organization Address [facility]/ZIP Co de Phone Number [facility] [place] [address] * Bryson Tube Hold (04/20/2024 5:09 PM EDT) Bryson Hold Sample in lab. [facility] Blood Venous Draw / Unknown 04/20/2024 5:09 PM EDT 04/20/2024 5:22 PM EDT Pau Burt APRN CHEMISTRY ORDERAB LES [facility] [place] [address] * Gold Tube HOLD (04/20/2024 5:09 PM EDT) Gold Hold Sample in lab. [facility] Blood Venous Draw / Unknown 04/20/2024 5:09 PM EDT 04/20/2024 5:21 PM EDT Pau Burt APRN CHEMISTRY ORDERAB LES Performing Organization Address City/[facility]/ZIP Co de Phone Number [facility] [place] [address] * Blue Tube HOLD (04/20/2024 5:09 PM EDT) Blue Hold Sample in lab. [facility] Blood Venous Draw / Unknown 04/20/2024 5:09 PM EDT 04/20/2024 5:22 PM EDT Pau Burt APRN HEMATOLOGY ORDERA BLES Performing Organization Address [facility]/ZIP Co de Phone Number [facility] [place] [address] * (ABNORMAL) Differential, Automated (04/20/2024 5:09 PM EDT) Neutrophil % 76.9 % [facility] Neutrophil Absolute 14.16(H) 1.70 - 6.10 x10(3)/mc L [facility] Lymph % 7.8 % [facility] Lymphocytes Abs 1.4 0.9 - 3.2 x10(3)/mc L [facility] Monocyte % 14.1 % [facility] Monocyte Abs 2.6(H) 0.3 - 0.9 x10(3)/mc L [facility] Eos % 0.3 % [facility] Eosinophils Abs 0.0 0.0 - 0.4 x10(3)/mc L [facility] Basophil % 0.3 % [facility] Baso Absolute 0.1 0.0 - 0.1 x10(3)/[facility] Immature Gran % 0.60 % [facility] Comment: Immature granulocytes(IG's)percentage and absolute count will include metamyelocytes, myelocytes, and promyelocytes. Blood smears from CBCs yielding IG's will be scanned manually for concordance. If this scan disagrees with the automated IG or if promyelocytes are noted, a manual differential will be performed. Immature Gran Absolute 0.11(H) 0.00 - 0.04 x10(3)/[facility] Blood 04/20/2024 5:09 PM EDT 04/20/2024 5:21 PM EDT Narrative Resulting Agency Comment Spec In Lab Pau Burt APRN HEMATOLOGY ORDERA BLES Performing Organization Address City/State/[facility] Co de Phone Number [facility] [place] [address] * (ABNORMAL) Hemogram (04/20/2024 5:09 PM EDT) White Blood Cell 18.4(H) 4.0 - 9.5 x10(3)/[facility] Red Blood Cell 3.45(L) 4.58 - 5.54 x10(6)/[facility] Hemoglobin 9.6(L) 13.7 - 16.5 g/dL [facility] Hematocrit 30.8(L) 40.5 - 48.5 % [facility] Mean Cell Volume 89.3 82.9 - 93.1 fL [facility] Mean Cell Hemoglobin 27.8 27.5 - 32.1 pg [facility] Mean Cell Hemoglobin Concentration 31.2(L) 32.0 - 35.7 g/dL [facility] Platelet 387(H) 145 - 357 x10(3)/[facility] RDW Standard Deviation 51.5(H) 36.0 - 45.0 fL [facility] RDW coefficient of variation 15.8(H) 11.4 - 13.8 % [facility] Mean Platelet Volume 11.3 7.6 - 12.9 fL [facility] NRBC% auto 0.0 % [facility] NRBC Absolute 0.000 0.000 - 0.000 x10(3)/mc L [facility] Blood 04/20/2024 5:09 PM EDT 04/20/2024 5:21 PM EDT Narrative Resulting Agency Comment Spec In Lab Pau Burt APRN HEMATOLOGY ORDERA BLES [facility] [place] [address] * (ABNORMAL) Comprehensive metabolic panel (non-fasting) (04/20/2024 5:09 PM EDT) Glucose 176 65 - 199 mg/dL [facility] Comment:Diabetes: >=200 mg/d L plus symptoms Blood Urea Nitrogen 41(H) 10 - 20 mg/dL [facility] Creatinine 6.27(H) 0.80 - 1.50 mg/dL [facility] Sodium 133(L) 135 - 145 mmol/L [facility] Potassium 5.5(H) 3.5 - 5.0 mmol/L [facility] Comment: Please note: ??Patients with WBC >100,000 may have falsely elevated Potassium levels. ??For accurate Potassium quantification in these patients send serum separator tube (gold top) for subsequent determinations. ??Contact the Clinical Chemistry Laboratory if there are any questions. Chloride 94(L) 98 - 107 mmol/L [facility] Carbon Dioxide 25 22 - 31 mmol/L [facility] Anion Gap 14 5 - 15 mmol/L [facility] Calcium 9.3 8.5 - 10.5 mg/dL [facility] Protein, Total 6.5 6.1 - 8.0 g/dL [facility] Albumin 3.2 3.2 - 5.2 g/dL [facility] Aspartate Aminotransferase 16 0 - 39 unit/L [facility] Alanine Aminotransferase 16 0 - 55 unit/L [facility] Alkaline Phosphatase 210(H) 40 - 130 unit/L [facility] Bilirubin, Total <0.2(L) 0.2 - 1.3 mg/dL [facility] Est Glomerular Filtration Rate 10(L) >=60 mL/min/1. 73 m?? [facility] Comment: This patient's estimated GFR was [...] and symptoms in addition to eGFR. Blood 04/20/2024 5:09 PM EDT 04/20/2024 5:21 PM EDT Narrative Resulting Agency Comment Spec In Lab Pau Burt APRN CHEMISTRY ORDERAB LES Performing Organization Address City/[facility]/ZIP Co de Phone Number [facility] [place] [address] * Blood culture (04/20/2024 5:08 PM EDT) Blood Culture No growth at 5 days. [facility] Blood 04/20/2024 5:08 PM EDT 04/20/2024 6:29 PM EDT Comment:R Basilic Narrative Resulting Agency Comment Spec In Lab Macario Thomas MD MICROBIOLOGY - BLOOD ORDERABLES Performing Organization Address City/[facility]/ZIP Co de Phone Number [facility] [place] [address] * Blood culture (04/20/2024 5:08 PM EDT) Blood Culture No growth at 5 days. [facility] Blood 04/20/2024 5:08 PM EDT 04/20/2024 6:30 PM EDT Comment:R Forearm Narrative Resulting Agency Comment Spec In Lab Macario Thomas MD MICROBIOLOGY - BLOOD ORDERABLES Performing Organization Address [facility] Co de Phone Number [facility] [place] [address] * POCT Glucose (04/20/2024 4:51 PM EDT) Glucose, POC 179 65 - 199 mg/dL [facility] Comment: Supplemental ranges: <140 mg/dL before meals <180 mg/dL all other times of the day Blood 04/20/2024 4:51 PM EDT 04/20/2024 4:51 PM EDT Emergency Dept POINT OF CARE TEST ORDERABLES Performing Organization Address [facility] Co de Phone Number [facility] [place] [address] documented in this encounter Visit Diagnoses Diagnosis Non healing left heel wound- Primary Open wound of foot except toe(s) alone, complicated Sepsis with acute organ dysfunction, due to unspecified organism, unspecified organ dysfunction type, unspecified whether septic shock present Non-healing wound of right heel Irregular heart beat Cardiac dysrhythmia, unspecified Hyperkalemia Hyperpotassemia Sepsis with encephalopathy without septic shock documented in this encounter Admitting Diagnoses Diagnosis Non healing left heel wound Open wound of foot except toe(s) alone, complicated documented in this encounter Administered Medications Inactive Administered Medications - up to 3 most recent administrations Medication Order MAR Action Action Date Dose Rate Site acetaminophen (Tylenol) tablet 975 mg 975 mg, Oral, EVERY 6 HOURS SCHEDULED, First dose on Viridiana 04/20/24 at 1941, Until Discontinued, Administer for pain or temperature greater than or equal to 38.2 degrees Celsius. Maximum daily dose of acetaminophen from all sources not to exceed 4,000 mg. When ordered for pain, acetaminophen should be given even when other ordered pain medications are indicated., Routine Given 04/29/2024 11:57 AM EDT 975 mg Given 04/29/2024 5:27 AM EDT 975 mg Given 04/28/2024 11:00 PM EDT 975 mg amLODIPine (Norvasc) tablet 10 mg 10 mg, Oral, DAILY, First dose on Wed04/21/24 at 0900, Until Discontinued, Hold for SBP <90, Routine Given 04/22/2024 8:02 AM EDT 10 mg Given 04/21/2024 9:14 AM EDT 10 mg apixaban (Eliquis) tablet 5 mg 5 mg, Oral, 2 TIMES DAILY, First dose on 04/29/24 at 1045, Until Discontinued, Anticoagulant, Routine, apixaban (Eliquis) Indication: Non-Valvular Atrial Fibrillation Given 04/29/2024 10:06 AM EDT 5 mg aspirin EC tablet 81 mg 81 mg, Oral, DAILY, First dose on Wed04/21/24 at 0900, Until Discontinued, Routine Given 04/29/2024 8:53 AM EDT 81 mg Given 04/28/2024 11:40 AM EDT 81 mg Given 04/27/2024 8:40 AM EDT 81 mg atorvastatin (Lipitor) tablet 40 mg 40 mg, Oral, EVERY EVENING, First dose on Viridiana 04/20/24 at 1941, Until Discontinued, Routine Given 04/28/2024 6:04 PM EDT 40 mg Given 04/27/2024 5:43 PM EDT 40 mg Given 04/26/2024 5:00 PM EDT 40 mg calcium carbonate (TUMS) chewable tablet 500 mg 500 mg, Oral, 3 TIMES DAILY PRN, Starting on 04/22/24 at 2211, Until 04/29/24 at 1658, Heartburn, Routine Given 04/26/2024 9:58 PM EDT 500 mg Given 04/22/2024 10:18 PM EDT 500 mg carvediloL (Coreg) tablet 12.5 mg 12.5 mg, Oral, 2 TIMES DAILY WITH MEALS, First dose on Viridiana 04/20/24 at 2020, Until Discontinued, Hold for HR <60 OR SBP <90, Routine Given 04/29/2024 7:59 AM EDT 12.5 mg Given 04/28/2024 6:05 PM EDT 12.5 mg Given 04/28/2024 11:40 AM EDT 12.5 mg dextrose 10% infusion 250 mL, at 1,000 mL/hr, Intravenous, EVERY 15 MIN PRN, Starting on Wed04/23/24 at 1113, Until 04/29/24 at 1658, For BG 50-70 mg/dL: Oral treatment preferred: [...] insulin orders before administering the next dose. dilTIAZem (Cardizem) tablet 30 mg 30 mg, Oral, EVERY 6 HOURS SCHEDULED, First dose on Wed04/23/24 at 0600, Until Discontinued, HOLD for SBP < 90, HR < 60, Routine Given 04/29/2024 11:57 AM EDT 30 mg Given 04/29/2024 5:27 AM EDT 30 mg Given 04/28/2024 11:00 PM EDT 30 mg dilTIAZem CD (Cardizem CD) capsule 120 mg 120 mg, Oral, DAILY, First dose on Wed04/21/24 at 0900, Until Discontinued, DO NOT CRUSH OR OPEN HOLD for SBP <90 or HR <60, Routine Given 04/22/2024 11:57 AM EDT 120 mg Given 04/21/2024 9:14 AM EDT 120 mg epoetin ken-epbx (Retacrit) injection 10,000 Units 10,000 Units, Intravenous, ONCE IN DIALYSIS PRN, 1 dose, Starting on Wed04/21/24 at 1118, Until Wed04/21/24 at 1200, Other, Dialysis (Intra-Procedure), Routine, What is the indication of use? End Stage Renal Disease (ESRD) on dialysis Given 04/21/2024 12:00 PM EDT 10,000 Units epoetin ken-epbx (Retacrit) injection 10,000 Units 10,000 Units, Intravenous, ONCE IN DIALYSIS PRN, 1 dose, Starting on 04/22/24 at 0639, Until 04/22/24 at 0943, Other, Dialysis (Intra-Procedure), Routine, What is the indication of use? End Stage Renal Disease (ESRD) on dialysis Given 04/22/2024 9:43 AM EDT 10,000 Units epoetin ken-epbx (Retacrit) injection 12,000 Units 12,000 Units, Intravenous, ONCE IN DIALYSIS PRN, 1 dose, Starting on Wed04/26/24 at 0645, Until Wed04/26/24 at 1034, Other, Dialysis (Intra-Procedure), Routine, What is the indication of use? End Stage Renal Disease (ESRD) on dialysis Given 04/26/2024 10:34 AM EDT 12,000 Units epoetin ken-epbx (Retacrit) injection 16,000 Units 16,000 Units, Intravenous, ONCE IN DIALYSIS PRN, 1 dose, Starting on Wed04/28/24 at 0614, Until Wed04/28/24 at 0923, Other, Dialysis (Intra-Procedure), Routine, What is the indication of use? End Stage Renal Disease (ESRD) on dialysis Given 04/28/2024 9:23 AM EDT 16,000 Units fentaNYL (PF) (50 mcg/mL) injection 12.5-50 mcg 12.5-50 mcg, Intravenous, EVERY 5 MIN PRN, Starting on Wed04/26/24 at 1557, Until Wed04/26/24 at 1617, Pain, for nerve catheter, Routine Given 04/26/2024 4:10 PM EDT 50 mcg Given 04/26/2024 4:00 PM EDT 50 mcg fentaNYL (PF) (50 mcg/mL) injection 50 mcg 50 mcg, Intravenous, EVERY 5 MIN PRN, Starting on 04/25/24 at 1456, Until 04/25/24 at 2003, Pain, or prior to injection of local anesthetic., Hold for respiratory rate less than 8 breaths per minute. (maximum dose 200 mcg), Day of Surgery (Day of Procedure), Routine Given 04/25/2024 3:13 PM EDT 50 mcg furosemide (Lasix) (10 mg/mL) injection 20 mg 20 mg, Intravenous, ONCE, 1 dose, On Viridiana 04/20/24 at 1902 Given 04/20/2024 7:55 PM EDT 20 mg glucagon (Glucagen) (1 mg/mL) injection solution 1 mg 1 mg, Intramuscular, EVERY 15 MIN PRN, Starting on 04/23/24 at 1113, Until 04/29/24 at 1658, Low blood sugar, For BG 50-70 mg/dL: [...] insulin orders before administering the next dose. , Routine glucose (Glutose) 40% oral geL 15-30 g of glucose, Buccal, EVERY 15 MIN PRN, Starting on Wed04/23/24 at 1113, Until 04/29/24 at 1658, Low blood sugar, For BG 50-70 mg/dL: [...] (net weight of tube = 37.5 grams.), Routine heparin (porcine) (1,000 units/mL) injection 1,000-10,000 Units 1,000-10,000 Units, Intercatheter, ONCE IN DIALYSIS PRN, 1 dose, Starting on Wed04/26/24 at 0645, Until 04/29/24 at 1658, Line Care, Per Protocol, Catheter lock use catheter specified fill volume per dialysis protocol. For use in Dialysis only. Procedure ID: [id number] (Hemodialysis CVAD Procedure - Care and Maintenance) in Clinical Policies., Dialysis (Intra-Procedure), Routine heparin (porcine) (1,000 units/mL) injection 1,000-10,000 Units 1,000-10,000 Units, Intercatheter, ONCE IN DIALYSIS PRN, 1 dose, Starting on Wed04/28/24 at 0614, Until 04/29/24 at 1658, Line Care, Per Protocol, Catheter lock use catheter specified fill volume per dialysis protocol. For use in Dialysis only. Procedure ID: [id number] (Hemodialysis CVAD Procedure - Care and Maintenance) in Clinical Policies., Dialysis (Intra-Procedure), Routine heparin (porcine) (5,000 units/1 mL) subcutaneous injection 5,000 Units 5,000 Units, Subcutaneous, EVERY 12 HOURS SCHEDULED (2 times per day), First dose on Viridiana 04/20/24 at 2100, Until Discontinued, Routine Given 04/27/2024 8:03 PM EDT 5,000 Units Given 04/27/2024 8:40 AM EDT 5,000 Units Given 04/26/2024 9:30 PM EDT 5,000 Units HYDROmorphone (Dilaudid) (0.5 mg/0.5 mL) injection syringe 0.2 mg 0.2 mg, Intravenous, EVERY 4 HOURS PRN, Starting on Wed04/26/24 at 0811, Until Wed04/26/24 at 0917, Pain, Administer for Moderate to severe pain, STAT Given 04/26/2024 8:24 AM EDT 0.2 mg HYDROmorphone (Dilaudid) (0.5 mg/0.5 mL) injection syringe 0.2 mg 0.2 mg, Intravenous, EVERY 2 HOURS PRN, Starting on Wed04/26/24 at 1458, Until Wed04/29/24 at 1658, Pain, Moderate Pain (4-6), Routine Given 04/27/2024 12:46 AM EDT 0.2 mg HYDROmorphone (Dilaudid) (0.5 mg/0.5 mL) injection syringe 0.4 mg 0.4 mg, Intravenous, ONCE, 1 dose, On Wed04/25/24 at 2330, Routine Given 04/25/2024 10:42 PM EDT 0.4 mg HYDROmorphone (Dilaudid) (0.5 mg/0.5 mL) injection syringe 0.4 mg 0.4 mg, Intravenous, ONCE, 1 dose, On Wed04/26/24 at 1015, STAT for rescue pain, STAT Given 04/26/2024 10:00 AM E DT 0.4 mg HYDROmorphone (Dilaudid) (0.5 mg/0.5 mL) injection syringe 0.5 mg 0.5 mg, Intravenous, ONCE, 1 dose, On Wed04/26/24 at 0245, Routine Given 04/26/2024 1:57 AM EDT 0.5 mg HYDROmorphone (Dilaudid) (0.5 mg/0.5 mL) injection syringe 0.5 mg 0.5 mg, Subcutaneous, EVERY 4 HOURS PRN, Starting on Wed04/26/24 at 1454, Until Wed04/29/24 at 1658, Pain, Rescue dose, For moderate or severe pain (4-10) unrelieved at least 30 minutes after initial PRN dose was administered Max 3 doses/24 hours. If pain still unrelieved after 3rd rescue dose within 24 hours, contact provider., Routine Given 04/29/2024 1:40 AM E DT 0.5 mg Given 04/28/2024 8:39 PM EDT 0.5 mg Given 04/26/2024 3:20 PM EDT 0.5 mg HYDROmorphone (Dilaudid) tablet 2 mg 2 mg, Oral, EVERY 4 HOURS PRN, Starting on Wed04/21/24 at 1054, Until Wed04/26/24 at 1113, Pain, moderate pain (4-6), For adults, may give in place of other agent(s) ordered for pain (7-10) at patient request., Routine Given 04/25/2024 9:03 PM EDT 2 mg Given 04/25/2024 11:56 AM EDT 2 mg Given 04/25/2024 12:14 AM EDT 2 mg HYDROmorphone (Dilaudid) tablet 2 mg 2 mg, Oral, EVERY 4 HOURS PRN, Starting on Wed04/21/24 at 1054, Until Wed04/26/24 at 1109, Pain, Breakthrough pain rescue dose, For moderate or severe pain (4-10) unrelieved at least 60 minutes after initial PRN dose was administered. Max 3 doses/24 hours. If pain still unrelieved after 3rd rescue dose within 24 hours, contact provider., Routine Given 04/26/2024 7:30 AM EDT 2 mg Given 04/26/2024 2:43 AM EDT 2 mg Given 04/25/2024 9:57 PM EDT 2 mg HYDROmorphone (Dilaudid) tablet 4 mg 4 mg, Oral, EVERY 4 HOURS PRN, Starting on Wed04/21/24 at 1054, Until Wed04/26/24 at 1113, Pain, severe pain (7-10), Routine Given 04/26/2024 4:46 AM EDT 4 mg Given 04/26/2024 12:55 AM EDT 4 mg Given 04/24/2024 8:08 PM EDT 4 mg HYDROmorphone (Dilaudid) tablet 4 mg 4 mg, Oral, EVERY 4 HOURS PRN, Starting on Wed04/26/24 at 1110, Until 04/29/24 at 1658, Pain, moderate pain (4-6), For adults, may give in place of other agent(s) ordered for pain (7-10) at patient request., Routine Given 04/29/2024 1:52 PM EDT 4 mg Given 04/29/2024 10:04 AM EDT 4 mg Given 04/29/2024 5:49 AM EDT 4 mg HYDROmorphone (Dilaudid) tablet 6 mg 6 mg, Oral, EVERY 4 HOURS PRN, Starting on Wed04/26/24 at 1110, Until 04/29/24 at 1658, Pain, severe pain (7-10), Routine Given 04/29/2024 1:50 AM EDT 6 mg Given 04/28/2024 9:58 PM EDT 6 mg Given 04/28/2024 3:51 PM EDT 6 mg HYDROmorphone (PF) (Dilaudid) injection 1 mg 1 mg, Intravenous, EVERY 4 HOURS PRN, Starting on Wed04/26/24 at 1458, Until 04/29/24 at 1658, Pain, Severe Pain (7-10), Routine Given 04/28/2024 11:03 PM EDT 1 m g Given 04/28/2024 6:18 PM EDT 1 mg insulin glargine-ygfn (Semglee) (100 unit/mL) subcutaneous injection vial 11 Units 11 Units, Subcutaneous, ONCE, 1 dose, On Wed04/23/24 at 1215, Routine Given 04/23/2024 11:58 AM EDT 11 Units insulin glargine-ygfn (Semglee) (100 unit/mL) subcutaneous injection vial 15 Units 15 Units, Subcutaneous, EVERY 24 HOURS, First dose on Wed04/23/24 at 0415, Until Discontinued, Routine Given 04/23/2024 4:23 AM EDT 15 Units insulin glargine-ygfn (Semglee) (100 unit/mL) subcutaneous injection vial 20 Units 20 Units, Subcutaneous, DAILY, First dose (after last modification) on Wed04/27/24 at 0900, Until Discontinued, Routine Given 04/27/2024 8:50 AM EDT 20 Units insulin glargine-ygfn (Semglee) (100 unit/mL) subcutaneous injection vial 23 Units 23 Units, Subcutaneous, DAILY, First dose (after last modification) on Wed04/28/24 at 0900, Until Discontinued, Routine Given 04/29/2024 8:55 AM EDT 23 Units Given 04/28/2024 9:00 AM EDT 23 Units insulin glargine-ygfn (Semglee) (100 unit/mL) subcutaneous injection vial 26 Units 26 Units, Subcutaneous, DAILY, First dose on Wed04/24/24 at 0900, Until Discontinued, Routine Given 04/26/2024 8:27 AM EDT 26 Units Given 04/25/2024 8:15 AM EDT 26 Units Given 04/24/2024 10:45 AM EDT 26 Units insulin lispro (HumaLOG;Admelog) (100 unit/mL) subcutaneous injection vial 0-8 Units 0-8 Units, Subcutaneous, 3 TIMES DAILY WITH MEALS, First dose on Wed04/23/24 at 0800, Until Discontinued, MEAL ASSOCIATED Give 1 unit for every 10 grams carbohydrate. Hold if not eating or if BG less than 70 mg/dL. , Routine Given 04/23/2024 8:59 AM EDT 4 Units insulin lispro (HumaLOG;Admelog) (100 unit/mL) subcutaneous injection vial 1-10 Units 1-10 Units, Subcutaneous, 3 TIMES DAILY WITH MEALS, First dose on Wed04/23/24 at 1700, Until Discontinued, MEAL ASSOCIATED Give 1 unit: 8 grams of carbohydrate Hold if not eating or if BG less than 70 mg/dL., Routine Given 04/29/2024 8:56 AM EDT 3 Units Given 04/28/2024 11:41 AM EDT 4 Units Given 04/27/2024 2:28 PM EDT 5 Units insulin lispro (HumaLOG;Admelog) (100 unit/mL) subcutaneous injection vial 1-4 Units 1-4 Units, Subcutaneous, EVERY 4 HOURS SCHEDULED, First dose on Viridiana 04/20/24 at 2000, Until Discontinued, CORRECTION BOLUS [1-4 Units] Sensitive Sliding Scale (BG in mg/dL): Correction factor 40 (1 unit of insulin is expected to drop the glucose 40 mg/dL) ?? BG 160 - 200 Give 1 unit BG 201 - 240 Give 2 units BG 241 - 280 Give 3 units and recheck BG in 2 hours. BG greater than 280, give 4 units and recheck BG in 2 hours. - If recheck BG is LESS than 280, give no insulin and resume schedule - If recheck BG is GREATER than or EQUAL to 280, give 4 units and repeat BG in 2 hours (no more than 3 times)??& call for new insulin orders. DO NOT hold if NPO, unless specifically directed to do so by written order. ?? Per Inpatient Subcutaneous Insulin Policy, recheck a BG of greater than 240 mg/dL in 2 hours., Routine Given 04/23/2024 2:45 AM EDT 4 Units Given 04/22/2024 11:54 PM EDT 4 Units Given 04/22/2024 10:11 PM EDT 4 Units insulin lispro (HumaLOG;Admelog) (100 unit/mL) subcutaneous injection vial 1-4 Units 1-4 Units, Subcutaneous, EVERY 4 HOURS SCHEDULED, First dose on Kos[place] 04/23/24 at 0415, Until Discontinued, CORRECTION BOLUS [1-4 Units] Sensitive Sliding Scale (BG in mg/dL): Correction factor 40 (1 unit of insulin is expected to drop the glucose 40 mg/dL) ?? BG 160 - 200 Give 1 unit BG 201 - 240 Give 2 units BG 241 - 280 Give 3 units and recheck BG in 2 hours. BG greater than 280, give 4 units and recheck BG in 2 hours. - If recheck BG is LESS than 280, give no insulin and resume schedule - If recheck BG is GREATER than or EQUAL to 280, give 4 units and repeat BG in 2 hours (no more than 3 times)??& call for new insulin orders. DO NOT hold if NPO, unless specifically directed to do so by written order. ?? Per Inpatient Subcutaneous Insulin Policy, recheck a BG of greater than 240 mg/dL in 2 hours., Routine Given 04/23/2024 7:39 AM EDT 2 Units Given 04/23/2024 4:22 AM EDT 4 Units insulin lispro (HumaLOG;Admelog) (100 unit/mL) subcutaneous injection vial 1-6 Units 1-6 Units, Subcutaneous, EVERY 4 HOURS SCHEDULED, First dose on Wed04/23/24 at 1215, Until Discontinued, CORRECTION BOLUS Custom Sliding Scale (BG in mg/dL) BG 150 - 180 ?? Give 1 units BG 181 - 210 ?? Give 2 units BG 211 - 240 ?? Give 3 units BG 241 - 270 ?? Give 4 units BG 271 - 300 Give 5 units BG greater than 300, give 6 units and recheck BG in 2 hours. - If recheck BG is LESS than 240, give no insulin and resume schedule. - If recheck BG is GREATER than or EQUAL to 240, repeat the Greater than 240 correction dose units and repeat BG in 2 hours (no more than 3 times) & call for new insulin orders. DO NOT hold if NPO, unless specifically directed to do so by written order. ?? Per Inpatient Subcutaneous Insulin Policy, recheck a BG of greater than 240 mg/dL in 2 hours., Routine Given 04/25/2024 4:20 AM EDT 2 Units Given 04/25/2024 12:10 AM EDT 3 Units Given 04/24/2024 8:09 PM EDT 1 Units insulin lispro (HumaLOG;Admelog) (100 unit/mL) subcutaneous injection vial 1-6 Units 1-6 Units, Subcutaneous, EVERY 4 HOURS SCHEDULED, First dose (after last modification) on Wed04/25/24 at 0800, Until Discontinued, CORRECTION BOLUS [1-6 Units] Custom Sliding Scale (BG in mg/dL): Correction factor 30 (1 unit of insulin is expected to drop the glucose 30 mg/dL) BG 140 - 170 Give 1 units BG 171 - 200 Give 2 units BG 201 - 230 Give 3 units BG 231 - 260 Give 4 units BG 261 - 290 Give 5 units BG greater than 290, give 6 units and recheck BG in 2 hours. If recheck BG remains GREATER THAN 240, GIVE 3 units (no more than two times) & call for new insulin orders. If recheck BG is less than 240 after two hours, give no insulin and resume prior schedule. DO NOT hold if NPO, unless specifically directed to do so by written order. Per Blood Glucose Monitoring Policy, re-check a BG of > 240 mg/dL in 2 hours. , , Routine Given 04/25/2024 11:33 PM EDT 1 Units Given 04/25/2024 8:18 AM EDT 1 Units insulin lispro (HumaLOG;Admelog) (100 unit/mL) subcutaneous injection vial 1-6 Units 1-6 Units, Subcutaneous, EVERY 4 HOURS SCHEDULED, First dose (after last modification) on Wed04/26/24 at 0800, Until Discontinued, CORRECTION BOLUS [1-6 Units] Custom Sliding Scale (BG in mg/dL): Correction factor 30 (1 unit of insulin is expected to drop the glucose 30 mg/dL) BG 150 - 180 Give 1 units BG 181 - 210 Give 2 units BG 211 - 240 Give 3 units BG 241 - 270 Give 4 units BG 271 - 300 Give 5 units BG greater than 300, give 6 units and recheck BG in 2 hours. If recheck BG remains GREATER THAN 240, GIVE 3 units & call for new insulin orders. If recheck BG is less than 240 after two hours, give no insulin and resume prior schedule. DO NOT hold if NPO, unless specifically directed to do so by written order. Per Blood Glucose Monitoring Policy, re-check a BG of > 240 mg/dL in 2 hours. , Routine Given 04/29/2024 11:53 AM EDT 3 Units Given 04/29/2024 5:23 AM EDT 4 Units Given 04/28/2024 11:05 PM EDT 2 Units insulin lispro (HumaLOG;Admelog) (100 unit/mL) subcutaneous injection vial 2 Units 2 Units, Subcutaneous, ONCE, 1 dose, On 04/23/24 at 0415, Routine Given 04/23/2024 4:22 AM EDT 2 Units insulin regular human 10 Units in dextrose 10 % 500 mL infusion 10 Units, Intravenous, ONCE, 1 dose, On Viridiana 04/20/24 at 1930, Administer over 1 Hours, This order should only be used as part of the hyperkalemia order set. Monitor BG every two hours X 3 and PRN. New Bag 04/20/2024 7:51 PM EDT 10 Units lactated ringers infusion 100 mL/hr, Intravenous, CONTINUOUS, Starting on Viridiana 04/20/24 at 1941, Until Wed04/21/24 at 0640 New Bag 04/20/2024 10:40 PM EDT 100 mL/hr 100 mL/hr lidocaine (Lidoderm) 5% patch 1 patch 1 patch, Transdermal, Administer over 12 Hours, EVERY 24 HOURS, First dose on Wed04/25/24 at 2230, Until Discontinued, Apply patch(es) for 12 hours, and then remove for 12 hours., Routine Patch Applied 04/28/2024 9:30 PM EDT 1 patch 16- Thigh Anterior (Right) Patch Applied 04/25/2024 9:42 PM EDT 1 patch 16- Thigh Anterior (Right) lidocaine (Xylocaine) 1% (10 mg/mL) injection 3 mg 3 mg (0.3 mL), Subcutaneous, ONCE PRN, 1 dose, Starting on Viridiana 04/20/24 at 1930, Until 04/29/24 at 1658, for discomfort with PIV insertion, Routine lisinopriL (Zestril) tablet 10 mg 10 mg, Oral, DAILY, First dose on Wed04/29/24 at 1400, Until Discontinued, Routine Given 04/29/2024 1:52 PM EDT 10 mg midazolam (pf) (Versed) (1 mg/mL) injection 0.5-2 mg 0.5-2 mg, Intravenous, EVERY 5 MIN PRN, Starting on Wed04/26/24 at 1556, Until Wed04/26/24 at 1617, Other, for nerve catheter, Routine Given 04/26/2024 4:15 PM EDT 1 mg Given 04/26/2024 4:00 PM EDT 1 mg midazolam (pf) (Versed) (1 mg/mL) injection 1 mg 1 mg, Intravenous, EVERY 5 MIN PRN, Starting on Wed04/25/24 at 1456, Until Wed04/25/24 at 2003, Other, sedation or prior to injection of local anesthetic, Hold for delirium/agitation. (Maximum dose 5 mg)., Day of Surgery (Day of Procedure), Routine Given 04/25/2024 3:13 PM EDT 1 mg pantoprazole EC (Protonix) tablet 40 mg 40 mg, Oral, DAILY, First dose on Viridiana 04/20/24 at 1942, Until Discontinued, DO NOT CRUSH OR OPEN, Routine Given 04/29/2024 8:53 AM EDT 40 mg Given 04/28/2024 11:40 AM EDT 40 mg Given 04/27/2024 8:40 AM EDT 40 mg piperacillin-tazobactam (Zosyn) 3.375 g vial attach to sodium chloride 0.9% 50 mL Mini-Bag Plus 3.375 g, Intravenous, EVERY 12 HOURS, First dose (after last modification) on Wed04/21/24 at 0000, Until Discontinued, Administer over 4 Hours, Per P&T renal dose adjustment by pharmacy policy Warning Vesicant/Irritant Medication Per soda maker labeling, do not administer or Y-site with lactated ringers., Indication for (Active or Suspected): Bone/Joint New Bag 04/27/2024 11:32 PM EDT 3.375 g 12.5 mL/hr New Bag 04/27/2024 12:40 PM EDT 3.375 g 12.5 mL/hr New Bag 04/26/2024 11:37 PM EDT 3.375 g 12.5 mL/hr piperacillin-tazobactam (Zosyn) 4.5 g vial attach to sodium chloride 0.9% 100 mL Mini-Bag Plus 4.5 g, Intravenous, ONCE, 1 dose, On Viridiana 04/20/24 at 1702, Administer over 0.5 Hours, Warning Vesicant/Irritant Medication Per soda maker labeling, do not administer or Y-site with lactated ringers., Indication for (Active or Suspected): Bacteremia/Sepsis New Bag 04/20/2024 5:25 PM EDT 4.5 g 2 00 mL/hr pregabalin (Lyrica) capsule 100 mg 100 mg, Oral, 2 TIMES DAILY, First dose on Viridiana 04/20/24 at 2100, Until Discontinued, Routine Given 04/29/2024 8:52 AM EDT 100 mg Given 04/28/2024 8:38 PM EDT 100 mg Given 04/28/2024 8:26 AM EDT 100 mg ROpivacaine (Naropin) 0.2% (2 mg/mL) infusion (AMBIT PUMP) Infiltration, Laterality: Right, Infusion Site: sciatic, Basal Flow Rate (mL/hr): : 6 mL/hr, HEAD SULFIDE OPERATOR Bolus Amt: 3 mL, HEAD SULFIDE OPERATOR Bolus Frequency: 30 minutes, 1 Hour Dose Limit: : 12 mL, FOR AMBIT PUMP New Bag 04/26/2024 7:34 PM EDT sevelamer carbonate (Renvela) tablet 1,600 mg 1,600 mg, Oral, 3 TIMES DAILY WITH MEALS, First dose (after last modification) on Wed04/25/24 at 1245, Until Discontinued, DO NOT CRUSH OR OPEN, Routine Given 04/29/2024 11:57 AM EDT 1,600 mg Given 04/29/2024 9:12 AM EDT 1,600 mg Given 04/28/2024 6:04 PM EDT 1,600 mg sevelamer carbonate (Renvela) tablet 800 mg 800 mg, Oral, 3 TIMES DAILY WITH MEALS, First dose on Wed04/21/24 at 0800, Until Discontinued, DO NOT CRUSH OR OPEN, Routine Given 04/25/2024 8:14 AM EDT 800 mg Given 04/24/2024 5:37 PM EDT 800 mg Given 04/23/2024 4:43 PM EDT 800 mg sodium chloride 0.9 % (flush) (BD PosiFlush Normal Saline 0.9) flush 5 mL 5 mL, Intravenous, 2 TIMES DAILY, First dose on Wed04/20/24 at 2100, Until Discontinued, Routine Given 04/29/2024 8:59 AM EDT 5 mLs Given 04/28/2024 9:30 PM EDT 5 mLs Given 04/28/2024 11:36 AM EDT 10 mLs sodium chloride 0.9 % (flush) (BD PosiFlush Normal Saline 0.9) flush 5-20 mL 5-20 mL, Intravenous, EVERY 1 MIN PRN, Starting on Viridiana 04/20/24 at 1930, Until 04/29/24 at 1658, flush, Flush pertains to all indwelling lines. Flush per protocol found in the job aid using the link provided on this medication record., Routine sodium chloride 0.9% infusion 500 mL, Intravenous, ONCE, 1 dose, On Viridiana 04/20/24 at 1702, For Sepsis IV Fluids in patient with exception to receiving standard amount of 30 mL/kg/dose, give NS 500 mL IV ONCE per CMS standards New Bag 04/20/2024 5:25 PM EDT 500 mLs sodium chloride 0.9% infusion 100 mL/hr, Intravenous, CONTINUOUS, Starting on Viridiana 04/20/24 at 2337, Until Wed04/21/24 at 1217 New Bag 04/21/2024 9:23 AM EDT 100 mL/hr 100 mL/hr New Bag 04/21/2024 12:29 AM EDT 100 mL/hr 100 mL/hr sodium chloride 0.9% infusion 100 mL, Intravenous, EVERY 15 MIN PRN, Starting on Wed04/26/24 at 0645, Until 04/29/24 at 1658, If administration of NS boluses will result in positive fluid balance at end of treatment, contact MD., Dialysis (Intra-Procedure) sodium chloride 0.9% infusion 100 mL, Intravenous, EVERY 15 MIN PRN, Starting on Wed04/28/24 at 0614, Until 04/29/24 at 1658, If administration of NS boluses will result in positive fluid balance at end of treatment, contact MD., Dialysis (Intra-Procedure) tiZANidine (Zanaflex) tablet 4 mg 4 mg, Oral, EVERY 8 HOURS PRN, Starting on Wed04/26/24 at 1122, Until 04/29/24 at 1658, Muscle spasms, Routine Given 04/29/2024 5:27 AM EDT 4 mg Given 04/28/2024 8:37 PM EDT 4 mg Given 04/28/2024 11:33 AM EDT 4 mg vancomycin (Vancocin) 1 gram in sodium chloride 0.9% 250 mL infusion 1 g, Intravenous, at 250 mL/hr, ONCE, 1 dose, On Wed04/21/24 at 1600, Administer after dialysis. Maximum infusion rate is 1 gram/hour. If flushing of the face, neck, upper body, arms, and/or back occurs decrease infusion rate by 50% to reduce the severity of symptoms. This medication may have an associated drug lab level. Please see MAR for scheduled level. Warning Vesicant/Irritant Medication , Routine, Indication for (Active or Suspected): Skin/Skin Structure New Bag 04/21/2024 4:11 PM EDT 1 g 250 mL/hr vancomycin (Vancocin) 1 gram in sodium chloride 0.9% 250 mL infusion 1,000 mg, Intravenous, at 250 mL/hr, ONCE, 1 dose, On Wed04/24/24 at 1200, Administer after hemodialysis Maximum infusion rate is 1 gram/hour. If flushing of the face, neck, upper body, arms, and/or back occurs decrease infusion rate by 50% to reduce the severity of symptoms. This medication may have an associated drug lab level. Please see MAR for scheduled level. Warning Vesicant/Irritant Medication , Routine, Indication for (Active or Suspected): Other (See comment) / MRSA New Bag 04/24/2024 12:07 PM EDT 1,000 mg 250 mL/hr vancomycin (Vancocin) 1.25 gram in sodium chloride 0.9% 250 mL infusion 1.25 g, Intravenous, at 200 mL/hr, ONCE, 1 dose, On Viridiana 04/20/24 at 1854, Maximum infusion rate is 1 gram/hour. If flushing of the face, neck, upper body, arms, and/or back occurs decrease infusion rate by 50% to reduce the severity of symptoms. This medication may have an associated drug lab level. Please see MAR for scheduled level. Warning Vesicant/Irritant Medication , STAT, Indication for (Active or Suspected): Skin/Skin Structure New Bag 04/20/2024 7:00 PM EDT 1.25 g 200 mL/hr vancomycin (Vancocin) 750 mg in sodium chloride 0.9% 250 mL infusion 750 mg, Intravenous, at 250 mL/hr, ONCE, 1 dose, On Wed04/26/24 at 1200, Administer after dialysis Maximum infusion rate is 1 gram/hour. If flushing of the face, neck, upper body, arms, and/or back occurs decrease infusion rate by 50% to reduce the severity of symptoms. This medication may have an associated drug lab level. Please see MAR for scheduled level. Warning Vesicant/Irritant Medication , Routine, Indication for (Active or Suspected): Skin/Skin Structure New Bag 04/26/2024 1:17 PM EDT 750 mg 250 mL/hr documented in this encounter Active and Recently Administered Medications Times are shown in EDT. Scheduled Medication Order 04/27/2024 04/28/2024 04/29/2024 acetaminophen (Tylenol) tablet 975 mg 975 mg, Oral, EVERY 6 HOURS SCHEDULED, First dose on Viridiana 04/20/24 at 1941, Until Discontinued, Administer for pain or temperature greater than or equal to 38.2 degrees Celsius. Maximum daily dose of acetaminophen from all sources not to exceed 4,000 mg. When ordered for pain, acetaminophen should be given even when other ordered pain medications are indicated., Routine 0639 (Given - Provider: Elle Pineda RN)1240 (Given - Provider: Sofy Ross RN)1743 (Given - Provider: Sofy Ross RN)2331 (Given - Provider: Concetta Canchola RN) 0548 (Given - Provider: Concetta Canchola RN)1133 (Given - Provider: Renetta Kaur RN)1805 (Given - Provider: Sofy Ross RN)2300 (Given - Provider: Gianluca Ge RN) 0527 (Given - Provider: Gianluca Ge RN)1157 (Given - Provider: Donavon Guzman RN) apixaban (Eliquis) tablet 5 mg 5 mg, Oral, 2 TIMES DAILY, First dose on Wed04/29/24 at 1045, Until Discontinued, Anticoagulant, Routine, apixaban (Eliquis) Indication: Non-Valvular Atrial Fibrillation 1006 (Given - Provider: Donavon Guzman RN) aspirin EC tablet 81 mg 81 mg, Oral, DAILY, First dose on Wed04/21/24 at 0900, Until Discontinued, Routine 0840 (Given - Provider: Sofy Ross RN) 1140 (Given - Provider: Renetta Kaur RN) 0853 (Given - Provider: Ara Eastman RN) atorvastatin (Lipitor) tablet 40 mg 40 mg, Oral, EVERY EVENING, First dose on Viridiana 04/20/24 at 1941, Until Discontinued, Routine 1743 (Given - Provider: Sofy Ross RN) 1804 (Given - Provider: Sofy Ross RN) carvediloL (Coreg) tablet 12.5 mg 12.5 mg, Oral, 2 TIMES DAILY WITH MEALS, First dose on Wed04/20/24 at 2020, Until Discontinued, Hold for HR <60 OR SBP <90, Routine 0840 (Given - Provider: Sofy Ross RN)1743 (Given - Provider: Sofy Ross RN) 1140 (Given - Provider: Renetta Kaur RN)1805 (Given - Provider: Sofy Ross RN) 0759 (Given - Provider: Donavon Guzman RN) dilTIAZem (Cardizem) tablet 30 mg 30 mg, Oral, EVERY 6 HOURS SCHEDULED, First dose on Wed04/23/24 at 0600, Until Discontinued, HOLD for SBP < 90, HR < 60, Routine 0639 (Given - Provider: Elle Pineda RN)1240 (Given - Provider: Sofy Ross RN)1743 (Given - Provider: Sofy Ross RN)2331 (Given - Provider: Concetta Canchola RN) 0549 (Given - Provider: Concetta Canchola RN)1133 (Given - Provider: Renetta Kaur RN)1808 (Given - Provider: Sofy Ross, VIDYA)2300 (Given - Provider: Gianluca Ge, VIDYA) 0527 (Given - Provider: Gianluca Ge RN)1157 (Given - Provider: Donavon Guzman RN) heparin (porcine) (5,000 units/1 mL) subcutaneous injection 5,000 Units (CANCELED) 5,000 Units, Subcutaneous, EVERY 12 HOURS SCHEDULED (2 times per day), First dose on Wed04/20/24 at 2100, Until Discontinued, Routine 0840 (Given - Provider: Sofy Ross RN)2002 (Given - Provider: Concetta Canchola RN) insulin glargine-ygfn (Semglee) (100 unit/mL) subcutaneous injection vial 20 Units (CANCELED) 20 Units, Subcutaneous, DAILY, First dose (after last modification) on Viridiana 04/27/24 at 0900, Until Discontinued, Routine 0850 (Given - Provider: Sofy Ross RN) insulin glargine-ygfn (Semglee) (100 unit/mL) subcutaneous injection vial 23 Units 23 Units, Subcutaneous, DAILY, First dose (after last modification) on Wed04/28/24 at 0900, Until Discontinued, Routine 0900 (Given - Provider: Sara Pang RN) 0855 (Given - Provider: Ara Eastman, VIDYA) insulin lispro (HumaLOG;Admelog) (100 unit/mL) subcutaneous injection vial 1-10 Units 1-10 Units, Subcutaneous, 3 TIMES DAILY WITH MEALS, First dose on Wed04/23/24 at 1700, Until Discontinued, MEAL ASSOCIATED Give 1 unit: 8 grams of carbohydrate Hold if not eating or if BG less than 70 mg/dL., Routine 0800 (Not Given - Provider: Sofy Ross RN - Reason: Order parameters not met - Comment: patient did not eat breakfast- upset at his diet)1428 (Given - Provider: Sofy Ross RN - Comment: patient left floor to go outside prio to being able to carb cover him)1700 (Not Given - Provider: oSfy Ross RN - Reason: Patient/family refused - Comment: patient declined dinner) 0800 (Not Given - Provider: Renetta Kaur RN - Reason: Patient Unable)1141 (Given - Provider: Renetta Kaur RN)1700 (Not Given - Provider: Sofy Ross RN - Reason: Order parameters not met) 0856 (Given - Provider: Ara Eastman, VIDYA)1200 (Not Given - Provider: Donavon Guzman RN - Reason: See comment - Comment: ref lunch) insulin lispro (HumaLOG;Admelog) (100 unit/mL) subcutaneous injection vial 1-6 Units(Linked Group 1) 1-6 Units, Subcutaneous, EVERY 4 HOURS SCHEDULED, First dose (after last modification) on Wed04/26/24 at 0800, Until Discontinued, CORRECTION BOLUS [1-6 Units] Custom Sliding Scale (BG in mg/dL): Correction factor 30 (1 unit of insulin is expected to drop the glucose 30 mg/dL) BG 150 - 180 Give 1 units BG 181 - 210 Give 2 units BG 211 - 240 Give 3 units BG 241 - 270 Give 4 units BG 271 - 300 Give 5 units BG greater than 300, give 6 units and recheck BG in 2 hours. If recheck BG remains GREATER THAN 240, GIVE 3 units & call for new insulin orders. If recheck BG is less than 240 after two hours, give no insulin and resume prior schedule. DO NOT hold if NPO, unless specifically directed to do so by written order. Per Blood Glucose Monitoring Policy, re-check a BG of > 240 mg/dL in 2 hours. , Routine 0000 (Not Given - Provider: Elle Pineda RN - Reason: Order parameters not met)0400 (Not Given - Provider: Elle Pineda RN - Reason: Order parameters not met)0800 (Not Given - Provider: Sofy Ross RN - Reason: Order parameters not met)1245 (Given - Provider: Sofy Ross, VIDYA)1744 (Given - Provider: Sofy Ross RN - Comment: sleeping)2012 (Given - Provider: Concetta Canchola RN)2331 (Given - Provider: Concetta Canchola RN) 0400 (Not Given - Provider: Concetta Canchola RN - Reason: Patient/family refused - Comment: patient refused blood sugar check)0800 (Given - Provider: Sara Pang RN)1134 (Given - Provider: Renetta Kaur, VIDYA)1555 (Given - Provider: Sara Pang RN)2035 (Given - Provider: Iam Cardenas RN)2305 (Given - Provider: Gianluca Ge, VIDYA) 0523 (Given - Provider: Gianluca Ge RN)0800 (Not Given - Provider: Donavon Guzman RN - Reason: Patient/family refused - Comment: [id number])1153 (Given - Provider: Donavon Guzman RN) lidocaine (Lidoderm) 5% patch 1 patch 1 patch, Transdermal, Administer over 12 Hours, EVERY 24 HOURS, First dose on Wed04/25/24 at 2230, Until Discontinued, Apply patch(es) for 12 hours, and then remove for 12 hours., Routine 2230 (Not Given - Provider: Concetta Canchola RN - Reason: Patient/family refused) 2130 (Patch Applied - Provider: Iam Cardenas RN) 0859 (Patch Removed - Provider: Ara Eastman RN) lisinopriL (Zestril) tablet 10 mg 10 mg, Oral, DAILY, First dose on Wed04/29/24 at 1400, Until Discontinued, Routine 1352 (Given - Provider: Donavon Guzamn, VIDYA) pantoprazole EC (Protonix) tablet 40 mg 40 mg, Oral, DAILY, First dose on Wed04/20/24 at 1942, Until Discontinued, DO NOT CRUSH OR OPEN, Routine 0840 (Given - Provider: Sofy Ross RN) 1140 (Given - Provider: Renetta Kaur RN) 0853 (Given - Provider: Ara Eastman, VIDYA) piperacillin-tazobactam (Zosyn) 3.375 g vial attach to sodium chloride 0.9% 50 mL Mini-Bag Plus (CANCELED) 3.375 g, Intravenous, EVERY 12 HOURS, First dose (after last modification) on Wed04/21/24 at 0000, Until Discontinued, Administer over 4 Hours, Per P&T renal dose adjustment by pharmacy policy Warning Vesicant/Irritant Medication Per soda maker labeling, do not administer or Y-site with lactated ringers., Indication for (Active or Suspected): Bone/Joint 0337 (Stopped - Provider: Elle Pineda RN)1240 (New Bag - Provider: Sofy Ross RN)1640 (Stopped - Provider: Sofy Ross RN)2332 (New Bag - Provider: Concetta Canchola RN) 0332 (Stopped - Provider: Concetta Canchola RN) pregabalin (Lyrica) capsule 100 mg 100 mg, Oral, 2 TIMES DAILY, First dose on Wed04/20/24 at 2100, Until Discontinued, Routine 0840 (Given - Provider: Sofy Ross RN)2002 (Given - Provider: Concetta Canchola RN) 0826 (Given - Provider: Sara Pang RN)203 (Given - Provider: Iam Cardenas RN) 0852 (Given - Provider: Ara Eastman, VIDYA) sevelamer carbonate (Renvela) tablet 1,600 mg 1,600 mg, Oral, 3 TIMES DAILY WITH MEALS, First dose (after last modification) on Wed04/25/24 at 1245, Until Discontinued, DO NOT CRUSH OR OPEN, Routine 0840 (Given - Provider: Sofy Ross RN)1240 (Given - Provider: Sofy Ross RN)1743 (Given - Provider: Sofy Ross RN) 0825 (Given - Provider: Sara Pang RN)1133 (Given - Provider: eRnetta Kaur RN)1804 (Given - Provider: Sofy Ross RN) 0800 (Canceled Entry - Provider: Donavon Guzman RN - Reason: See comment - Comment: breakfast not here.)0912 (Given - Provider: Donavon Guzman RN)1157 (Given - Provider: Donavon Guzman RN) sodium chloride 0.9 % (flush) (BD PosiFlush Normal Saline 0.9) flush 5 mL 5 mL, Intravenous, 2 TIMES DAILY, First dose on Viridiana 04/20/24 at 2100, Until Discontinued, Routine 0845 (Given - Provider: Sofy Ross RN)2004 (Given - Provider: Concetta Canchola RN) 1136 (Given - Provider: Renetta Kaur RN)213 (Given - Provider: Iam Cardenas RN) 0859 (Given - Provider: Ara Eastman RN) Continuous Medication Order 04/27/2024 04/28/2024 04/29/2024 ROpivacaine (Naropin) 0.2% (2 mg/mL) infusion (AMBIT PUMP) Infiltration, Laterality: Right, Infusion Site: sciatic, Basal Flow Rate (mL/hr): : 6 mL/hr, HEAD SULFIDE OPERATOR Bolus Amt: 3 mL, HEAD SULFIDE OPERATOR Bolus Frequency: 30 minutes, 1 Hour Dose Limit: : 12 mL, FOR AMBIT PUMP 1113 (Paused - Provider: Paris Flores MD) 1658 (Due: Stopped) PRN Medication Order 04/27/2024 04/28/2024 04/29/2024 calcium carbonate (TUMS) chewable tablet 500 mg 500 mg, Oral, 3 TIMES DAILY PRN, Starting on 04/22/24 at 2211, Until 04/29/24 at 1658, Heartburn, Routine dextrose 10% infusion(Linked Group 2) 250 mL, at 1,000 mL/hr, Intravenous, EVERY 15 MIN PRN, Starting on 04/23/24 at 1113, Until 04/29/24 at 1658, For BG 50-70 mg/dL: Oral treatment preferred: [...] insulin orders before administering the next dose. epoetin ken-epbx (Retacrit) injection 16,000 Units (COMPLETED) 16,000 Units, Intravenous, ONCE IN DIALYSIS PRN, 1 dose, Starting on Wed04/28/24 at 0614, Until Wed04/28/24 at 0923, Other, Dialysis (Intra-Procedure), Routine, What is the indication of use? End Stage Renal Disease (ESRD) on dialysis 922 (Given - Provider: Michelle Garduno RN) glucagon (Glucagen) (1 mg/mL) injection solution 1 mg(Linked Group 2) 1 mg, Intramuscular, EVERY 15 MIN PRN, Starting on Wed04/23/24 at 1113, Until 04/29/24 at 1658, Low blood sugar, For BG 50-70 mg/dL: [...] insulin orders before administering the next dose. , Routine glucose (Glutose) 40% oral geL(Linked Group 2) 15-30 g of glucose, Buccal, EVERY 15 MIN PRN, Starting on 04/23/24 at 1113, Until 04/29/24 at 1658, Low blood sugar, For BG 50-70 mg/dL: [...] (net weight of tube = 37.5 grams.), Routine heparin (porcine) (1,000 units/mL) injection 1,000-10,000 Units 1,000-10,000 Units, Intercatheter, ONCE IN DIALYSIS PRN, 1 dose, Starting on Wed04/26/24 at 0645, Until 04/29/24 at 1658, Line Care, Per Protocol, Catheter lock use catheter specified fill volume per dialysis protocol. For use in Dialysis only. Procedure ID: 660 (Hemodialysis CVAD Procedure - Care and Maintenance) in Clinical Policies., Dialysis (Intra-Procedure), Routine heparin (porcine) (1,000 units/mL) injection 1,000-10,000 Units 1,000-10,000 Units, Intercatheter, ONCE IN DIALYSIS PRN, 1 dose, Starting on Wed04/28/24 at 0614, Until 04/29/24 at 1658, Line Care, Per Protocol, Catheter lock use catheter specified fill volume per dialysis protocol. For use in Dialysis only. Procedure ID: 660 (Hemodialysis CVAD Procedure - Care and Maintenance) in Clinical Policies., Dialysis (Intra-Procedure), Routine HYDROmorphone (Dilaudid) (0.5 mg/0.5 mL) injection syringe 0.2 mg(Linked Group 3) 0.2 mg, Intravenous, EVERY 2 HOURS PRN, Starting on Wed04/26/24 at 1458, Until 04/29/24 at 1658, Pain, Moderate Pain (4-6), Routine 004 (Given - Provider: Elle Pineda RN) 1817 (See Alternative - Provider: Sofy Ross RN)230 (See Alternative - Provider: Gianluca Ge, VIDYA) HYDROmorphone (Dilaudid) (0.5 mg/0.5 mL) injection syringe 0.5 mg 0.5 mg, Subcutaneous, EVERY 4 HOURS PRN, Starting on Wed04/26/24 at 1454, Until 04/29/24 at 1658, Pain, Rescue dose, For moderate or severe pain (4-10) unrelieved at least 30 minutes after initial PRN dose was administered Max 3 doses/24 hours. If pain still unrelieved after 3rd rescue dose within 24 hours, contact provider., Routine 2038 (Given - Provider: Iam Cardenas RN) 014 (Given - Provider: Gianluca Ge RN) HYDROmorphone (Dilaudid) tablet 4 mg(Linked Group 4) 4 mg, Oral, EVERY 4 HOURS PRN, Starting on Wed04/26/24 at 1110, Until 04/29/24 at 1658, Pain, moderate pain (4-6), For adults, may give in place of other agent(s) ordered for pain (7-10) at patient request., Routine 0139 (See Alternative - Provider: Elle Pineda RN)0651 (See Alternative - Provider: Elle Pineda RN)2307 (Given - Provider: Concetta Canchola RN) 0548 (Given - Provider: Concetta Canchola, VIDYA)1134 (See Alternative - Provider: Renetta Kaur RN)1551 (See Alternative - Provider: Sara Pang RN)2158 (See Alternative - Provider: Gianluca Ge RN) 0150 (See Alternative - Provider: Gianluca Ge RN)0549 (Given - Provider: Gianluca Ge RN)1004 (Given - Provider: Donavon Guzman RN)1352 (Given - Provider: Donavon Guzman RN) HYDROmorphone (Dilaudid) tablet 6 mg(Linked Group 4) 6 mg, Oral, EVERY 4 HOURS PRN, Starting on Wed04/26/24 at 1110, Until 04/29/24 at 1658, Pain, severe pain (7-10), Routine 0139 (Given - Provider: Elle Pineda RN)0651 (Given - Provider: Elle Pineda RN)2307 (See Alternative - Provider: Concetta Canchola RN) 0548 (See Alternative - Provider: Concetta Canchola RN)1134 (Given - Provider: Renetta Kaur RN)1551 (Given - Provider: Sara Pang, RN)2158 (Given - Provider: Gianluca Ge RN) 0150 (Given - Provider: Gianluca Ge RN)0549 (See Alternative - Provider: Gianluca Ge RN)1004 (See Alternative - Provider: Donavon Guzman RN)1352 (See Alternative - Provider: Donavon Guzman RN) HYDROmorphone (PF) (Dilaudid) injection 1 mg(Linked Group 3) 1 mg, Intravenous, EVERY 4 HOURS PRN, Starting on Wed04/26/24 at 1458, Until 04/29/24 at 1658, Pain, Severe Pain (7-10), Routine 0046 (See Alternative - Provider: Elle Pineda RN) 181 (Given - Provider: Sofy Ross, RN)2303 (Given - Provider: Gianluca Ge, VIDYA) lidocaine (Xylocaine) 1% (10 mg/mL) injection 3 mg 3 mg (0.3 mL), Subcutaneous, ONCE PRN, 1 dose, Starting on Viridiana 04/20/24 at 1930, Until 04/29/24 at 1658, for discomfort with PIV insertion, Routine sodium chloride 0.9 % (flush) (BD PosiFlush Normal Saline 0.9) flush 5-20 mL 5-20 mL, Intravenous, EVERY 1 MIN PRN, Starting on Viridiana 04/20/24 at 1930, Until 04/29/24 at 1658, flush, Flush pertains to all indwelling lines. Flush per protocol found in the job aid using the link provided on this medication record., Routine sodium chloride 0.9% infusion 100 mL, Intravenous, EVERY 15 MIN PRN, Starting on Wed04/26/24 at 0645, Until 04/29/24 at 1658, If administration of NS boluses will result in positive fluid balance at end of treatment, contact MD., Dialysis (Intra-Procedure) sodium chloride 0.9% infusion 100 mL, Intravenous, EVERY 15 MIN PRN, Starting on Wed04/28/24 at 0614, Until 04/29/24 at 1658, If administration of NS boluses will result in positive fluid balance at end of treatment, contact MD., Dialysis (Intra-Procedure) tiZANidine (Zanaflex) tablet 4 mg 4 mg, Oral, EVERY 8 HOURS PRN, Starting on Wed04/26/24 at 1122, Until 04/29/24 at 1658, Muscle spasms, Routine 1240 (Given - Provider: Sofy Ross, VIDYA) 1133 (Given - Provider: Renetta Kaur RN)2036 (Given - Provider: Iam Cardenas RN) 0527 (Given - Provider: Gianluca Ge RN) Linked Groups Order Group 1: POCT Fingerstick Glucose (CANCELED) Routine, EVERY 4 HOURS, First occurrence on Wed04/26/24 at 0800, Until Specified, Consider choosing EVERY 4 HOURS as frequency for: - Type 1 Diabetes - At least 24 hours after coming off an insulin drip - At least 24 hours after admission for DKA - Hypoglycemia unawareness - Patients who are otherwise unstable Select the same frequency for the correction bolus insulin order And insulin lispro (HumaLOG;Admelog) (100 unit/mL) subcutaneous injection vial 1-6 UnitsJump to med 1-6 Units, Subcutaneous, EVERY 4 HOURS SCHEDULED, First dose (after last modification) on Wed04/26/24 at 0800, Until Discontinued, CORRECTION BOLUS [1-6 Units] Custom Sliding Scale (BG in mg/dL): Correction factor 30 (1 unit of insulin is expected to drop the glucose 30 mg/dL) BG 150 - 180 Give 1 units BG 181 - 210 Give 2 units BG 211 - 240 Give 3 units BG 241 - 270 Give 4 units BG 271 - 300 Give 5 units BG greater than 300, give 6 units and recheck BG in 2 hours. If recheck BG remains GREATER THAN 240, GIVE 3 units & call for new insulin orders. If recheck BG is less than 240 after two hours, give no insulin and resume prior schedule. DO NOT hold if NPO, unless specifically directed to do so by written order. Per Blood Glucose Monitoring Policy, re-check a BG of > 240 mg/dL in 2 hours. , Routine Group 2: glucose (Glutose) 40% oral geLJump to med 15-30 g of glucose, Buccal, EVERY 15 MIN PRN, Starting on 04/23/24 at 1113, Until 04/29/24 at 1658, Low blood sugar, For BG 50-70 mg/dL: [...] (net weight of tube = 37.5 grams.), Routine Or dextrose 10% infusionJump to med 250 mL, at 1,000 mL/hr, Intravenous, EVERY 15 MIN PRN, Starting on 04/23/24 at 1113, Until 04/29/24 at 1658, For BG 50-70 mg/dL: Oral treatment preferred: [...] insulin orders before administering the next dose. Or glucagon (Glucagen) (1 mg/mL) injection solution 1 mgJump to med 1 mg, Intramuscular, EVERY 15 MIN PRN, Starting on 04/23/24 at 1113, Until 04/29/24 at 1658, Low blood sugar, For BG 50-70 mg/dL: [...] insulin orders before administering the next dose. , Routine Group 3: HYDROmorphone (Dilaudid) (0.5 mg/0.5 mL) injection syringe 0.2 mgJump to med 0.2 mg, Intravenous, EVERY 2 HOURS PRN, Starting on Wed04/26/24 at 1458, Until 04/29/24 at 1658, Pain, Moderate Pain (4-6), Routine Or HYDROmorphone (PF) (Dilaudid) injection 1 mgJump to med 1 mg, Intravenous, EVERY 4 HOURS PRN, Starting on Wed04/26/24 at 1458, Until 04/29/24 at 1658, Pain, Severe Pain (7-10), Routine Group 4: HYDROmorphone (Dilaudid) tablet 4 mgJump to med 4 mg, Oral, EVERY 4 HOURS PRN, Starting on Wed04/26/24 at 1110, Until 04/29/24 at 1658, Pain, moderate pain (4-6), For adults, may give in place of other agent(s) ordered for pain (7-10) at patient request., Routine Or HYDROmorphone (Dilaudid) tablet 6 mgJump to med 6 mg, Oral, EVERY 4 HOURS PRN, Starting on Wed04/26/24 at 1110, Until 04/29/24 at 1658, Pain, severe pain (7-10), Routine documented in this encounter Care Teams Automobile Drivers Relationship Specialty Start Date End Date Ken Greer MD PCP - General Family Medicine 12/30/23 05/15/24 documented as of this encounter
--- OUTSIDE RECORDS SUMMARY | 2024-12-05 12:34 | XMS_ITS | Encounter Summary ---
Author Organization [facility] Address [facility] [place] [address] Care Team Providers Care Records And Tape Recordings Engineer Name Role Phone Ken Greer MD Primary Care Provider [phone] Reason for Visit * Auth/Cert (Routine) Specialty Diagnoses / Procedures Referred By Nader gardiner Referred To Contact Diagnoses Non healing left heel wound Sepsis with acute organ dysfunction, due to unspecified organism, unspecified organ dysfunction type, unspecified whether septic shock present Kristi Renae MD [facility] [place] [address] [facility] Referral ID Status Reason Start Date Expiration Date Visits Re quested Visits Authorized [id number] 1 1 Encounter Details Date Type Department Care Team (Late st Contact Info) Description 04/26/2024 4:47 PM EDT Anesthesia Event Surgical Unit Level 4 [place] [id number] Ismael Menchaca MD [facility] [place] [address] Anesthesia Record Procedure Summary Procedure Name Responsible Anesthesiologist Anesthesia Start Time Anesthesia Stop Time Acute Pain Medicine Service (consult) Events No events on file. Meds Name Total ROpivacaine 0.5% 30 mL * Agents No agents on file. * Blood No blood administrations on file. Lines, Drains, and Airways Type Details Placement Removal Incision 02/18/24; 1856; Left , anterior, distal, lower; leg 02/18/24 1856 by Oksana Santos RN Do Not Use This Location 02/20/24; 1854; LUE; Fistula / Graft 02/20/24 1854 by Naun Randolph, research staff member Arteriovenous (AV) Access 02/21/24; upper arm, left 02/21/24 0000 by Gregory Strickland, RN Incision 02/21/24; 1638; Left; leg 1638 by Juana Mcduffie, RN Incision 04/11/24; 1110; Left , anterior; hip; non-laparascopic puncture; Left Femoral Artery Sheath site 04/11/24 1110 by Letha Díaz, VIDYA Incision 04/25/24; 1634; Righ t, anterior, lower, proximal; leg; horizontal; 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 Flores/Dr. Menchaca; right; Right Sciatic; 9 cm at the skin 04/26/24 1638 by Mell Sprague, RN Incision 08/03/24; 1106; Left , anterior, distal, upper; arm; non-laparascopic puncture; Fistulagram - MD Nunez 08/03/24 1106 by Emery Cameron, VIDYA documented in this encounter Social History Tobacco Use Types Packs/Day Years Used Date Smoking Tobacco: Every Day Cigarettes Last attempted to quit: 12/26/2018 Smokeless Tobacco: Never Comments:smoking a few a day Alcohol Use Standard Drinks/Week Comments No 0 (1 standard drink = 0.6 oz pur e alcohol) [facility] Utilities Answer Date Recorded In the past 12 months has [employer], [employer], or water [employer] threatened to shut off services in your home? No 04/21/2024 Hunger Vital Sign Answer Date Recorded Within the past 12 months, y ou worried that your food would run out before you got the money to buy more. Never true 04/21/20 Within the past 12 months, t he [...] in the past 12 m [facility], were you homeless or living in [...] on file documented as of this encounter OR Notes * Anesthesia Procedure Notes - Ismael Menchaca MD - 04/26/2024 4:47 PM EDT Associated Order(s): Anesthesia Block Anesthesia Block Date/Time: 04/26/2024 4:20 PM Start Time: 04/26/2024 4:20 PM End Time: 04/26/2024 4:32 PM Patient Location: Other - add comment below OR 19 The patient was greeted; the risks and benefits of the procedure were reviewed. Indication: Block Only Block Type: Sciatic sciatic/ popliteal nerve block Laterality: Right Position: Left lateral decubitus Prep: Chlorhexidine, patient draped, gown and mask, cap, sterile gloves, hand hygeine Skin Anesthetic: Skin Anesthetic: Lidocaine 1% dose: 4 Block Technique: tuohy 18 10 cm Ultrasound Guided: YES and in-plane Ultrasound Image Saved Ultrasound guidance was used to identify the targeted neuronal structure. Ultrasound was also used to identify needle position and to identify tissue (bone, muscle, and blood vessels) to prevent inadvertent intraneural or intravascular needle placement and injection. The spread of local anesthetic was confirmed with live ultrasound imaging. Continuous: Continuous Local Anesthetic Volume(s) Injected for Nerve Block: ROpivacaine 0.5% - Perineural 30 mL - 04/26/2024 4:20:00 PM Nerve Sensory/MotorTest: Events: no complications Notes: Target structures, needle, and local anesthetic spread were visualized under US guidance for the duration of the procedure. Catheter threaded easily, spread of LA seen on U/S through catheter. No blood aspirated, no pain on injection, no paresthesias. No needle to nerve contact was observed on ultrasound. Catheter secured to the skin with tegaderm, 9cm at skin. Tolerated well, pain easing significantly shortly after procedure. Performed by: Resident/SPANISH MEDICAL INTERPRETER: Paris Flores MD Attending Physician: Ismael Menchaca MD Authorized by: Ismael Menchaca MD documented in this encounter Plan of Treatment Not on file documented as of this encounter Procedures Procedure Name Priority Date/Time Associated Diagnosis Comments ANESTHESIA BLOCK Routine 04/26/2024 4:20 PM EDT documented in this encounter Results * Anesthesia Block (04/26/2024 4:20 PM EDT) Narrative Ismael Menchaca MD - 04/26/2024 4:20 PM EDT Ismael Menchaca MD ? 04/26/2024 ??4:51 PM Anesthesia Block Date/Time: 04/26/2024 4:20 PM Start Time: ??04/26/2024 4:20 PM End Time: ??04/26/2024 4:32 PM Patient Location: ??Other - add comment below OR 19 The patient was greeted; the risks and benefits of the procedure were reviewed. ?? Indication: ??Block Only Block Type: ??Sciatic sciatic/ popliteal nerve block Laterality: ??Right Position: ??Left lateral decubitus Prep: ??Chlorhexidine, patient draped, gown and mask, cap, sterile gloves, hand hygeine Skin Anesthetic: ??Skin Anesthetic: ??Lidocaine 1% ??dose: ??4 Block Technique: ?? tuohy ?? 18 ?? 10 cm ??Ultrasound Guided: ??YES and in-plane ??Ultrasound Image Saved ?Ultrasound guidance was used to identify the targeted neuronal structure. Ultrasound was also used to identify needle position and to identify tissue (bone, muscle, and blood vessels) to prevent inadvertent intraneural or intravascular needle placement and injection. The spread of local anesthetic was confirmed with live ultrasound imaging. ?Continuous: ??Continuous Local Anesthetic Volume(s) Injected for Nerve Block: ?? ROpivacaine 0.5% - Perineural 30 mL - 04/26/2024 4:20:00 PM Nerve Sensory/MotorTest: ??Events: no complications ?? Notes: ?? Target structures, needle, and local anesthetic spread were visualized under US guidance for the duration of the procedure. Catheter threaded easily, spread of LA seen on U/S through catheter. No blood aspirated, no pain on injection, no paresthesias. No needle to nerve contact was observed on ultrasound. Catheter secured to the skin with tegaderm, 9cm at skin. Tolerated well, pain easing significantly shortly after procedure. Performed by: ?? Resident/SPANISH MEDICAL INTERPRETER: ? Paris Flores MD ?? Attending Physician: ? Ismael Menchaca MD Authorized by: Ismael Menchaca MD ?? Ismael Menchaca MD CLINICAL INFORMATICS SPEC [facility] documented in this encounter Visit Diagnoses Not on filedocumented in this encounter Administered Medications Inactive Administered Medications - up to 3 most recent administrations Medication Order MAR Action Action Date Dose Rate Site ROPivacaine (PF) (Naropin) 0.5% (5 mg/mL) injection Perineural, Starting on Wed04/26/24 at 1620, Until Wed04/26/24 at 1620, Anesthesia Intra-op, Routine Given 04/26/2024 4:20 PM EDT 30 mLs documented in this encounter Care Teams Records And Tape Recordings Engineer Relationship Specialty Start Date End Date Ken Greer MD PCP - General Family Medicine 12/30/23 05/15/24 documented as of this encounter
--- OUTSIDE RECORDS SUMMARY | 2024-12-05 12:35 | XMS_ITS | Encounter Summary ---
Author Organization [facility] [place] [address] Care Team Providers Care Human Resources Benefits Manager Name Role Phone Ken Greer MD Primary Care Provider [phone] Reason for Visit * Auth/Cert (Routine) Specialty Diagnoses / Procedures Referred By Nader gardiner Referred To Contact Diagnoses Non healing left heel wound Sepsis with acute organ dysfunction, due to unspecified organism, unspecified organ dysfunction type, unspecified whether septic shock present Kristi Renae MD [facility] [place] [address] [facility] Referral ID Status Reason Start Date Expiration Date Visits Re quested Visits Authorized [id number] 1 1 Encounter Details Date Type Department Care Team (Late st Contact Info) Description 04/21/2024 4:39 PM EDT Anesthesia [place] [address] Beryl White MD [facility] [place] [address] Lilia Galeana MD [facility] [place] [address] Anesthesia Record Procedure Summary Procedure Name Responsible Anesthesiologist Anesthesia Start Time Anesthesia Stop Time DEBRIDEMENT SKIN AND SUBCU, LOWER EXTREMITY (WRVU 1.01) (Right: Foot) Beryl White MD 04/21/24 1639 04/21/24 1835 Events Date Time Event Comment 04/21/2024 1639 AN Verify 1639 Start 1639 An Start Data 1645 An Induction 1648 An Intubation 1650 Anesthesia Ready 173 182 Extubation/LMA Out 182 an stop data 183 Recovery or ICU Handoff Annemarie ent care was transferred to the destination unit staff after review of the patient's medical history, current anesthetic/surgical status and plan, according to the Provider Handoff Checklist. 183 Stop Meds Name Total propofoL 450 mg propofol INF 117.66 mg fentaNYL 100 mcg lidocaine IV 50 mg ondansetron 4 mg PHENYLephrine 160 mcg acetaminophen IV 1,000 mg ketamine 10 mg/mL 40 mg vancomycin 1 g HYDROmorphone 0.4 mg dexmedeTOMIDine 4 mcg/mL 12 mcg lactated ringers 250 mL * Agents Name O2 * Blood No blood administrations on file. Lines, Drains, and Airways Type Details Placement Removal Incision 02/18/24; 1856; Left , anterior, distal, lower; leg 02/18/24 185 by Oksana Santos RN Do Not Use This Location 02/20/24; 1854; LUE; Fistula / Graft 02/20/24 185 by Naun Randolph RN Hemodialysis Arteriovenous (AV) Access 02/21/24; upper arm, left 02/21/24 0000 by Gregory Strickland RN Incision 02/21/24; 1638; Left ; leg 02/21/24 1638 by Juana Mcduffie RN Incision 04/11/24; 1110; Left , anterior; hip; non-laparascopic puncture; Left Femoral Artery Sheath site 04/11/24 1110 by Letha Díaz RN Wound 02/21/24; 2029; Y; Right; heel; LDA not present upon assessment (patient is s/p R BKA today 04/21/24); 04/21/24; 202902/21/242029 by Elle Finn RN 04/21/242029 by Elle Finn RN PIV 04/20/24; 1715; 20 gauge; basilic vein (medial side of arm), right; removed per policy/procedure, lumen/catheter not patent; 04/22/24; 2350 04/20/24 171 by Kimberly Szymanski RN 04/22/24 235 by Gaye Lara RN Incision 04/21/24; Right, lower; leg; other (see comments) (BKA stump); LDA not present upon assessment; 04/25/24; 180404/21/24 0000 by Elle Finn RN 04/25/241804 by Ivette Myles RN Supraglottic Mask Ventilation: No t Attempted (0); LMA Type: iGel; LMA Size: 5; Inserted by: Minh; Removal Date: 04/21/24; Removal Time: 182504/21/24 164 by Annia Wilkinson CRNA 04/21/241825 by Annia Wilkinson CRNA documented in this encounter Social History Tobacco Use Types Packs/Day Years Used Date Smoking Tobacco: Every Day Cigarettes Last attempted to quit: 12/26/2018 Smokeless Tobacco: Never Comments:smoking a few a day Alcohol Use Standard Drinks/Week Comments No 0 (1 standard drink = 0.6 oz pur e alcohol) [facility] Utilities Answer Date Recorded In the past 12 months has th e I and love and you, gas, oil, or water [employer] threatened to shut off services in your [...] or Doing Things Outside Your Home? no 04/11/2024 Feels Threatened by Someone no 03/25 Feels Unsafe at Home or Work/School no 04/11/2024 Physical Signs of Abuse Present no 04/11/2024 Sex and Gender Information Value Date Recorded Sex Assigned at Not on file Gender Identity Not on file Sexual Orientation Not on file documented as of this encounter OR Notes * Anesthesia Procedure Notes - Jas Anglin MD - 04/22/2024 12:37 AM EDT Associated Order(s): Anesthesia Block Anesthesia Block Date/Time: 04/21/2024 6:20 PM Start Time: 04/21/2024 6:20 PM End Time: 04/21/2024 6:30 PM Patient Location: Block Room The patient was greeted; the risks and benefits of the procedure were reviewed. Indication: Post-op Pain Control Post-op pain management at the request of surgeon. Block Type: Saphenous nerve block/mid thigh and sciatic Laterality: Right Position: Supine Prep: Chlorhexidine, patient draped and mask, cap, sterile gloves, hand hygeine Skin Anesthetic: Skin Anesthetic: Lidocaine 1% dose: 5 Block Technique: SonoPlex 21 10 cm Ultrasound Guided: YES and in-plane Ultrasound Image Saved Single-Shot: Single-shot Nerve Sensory/MotorTest: Events: no complications Notes: Target structures, needle, and local anesthetic spread were visualized under US guidance for the duration of the procedure. No blood aspirated, no pain on injection, no paresthesias. No needle to nerve contact was observed on ultrasound. 20ml given near sciatic bifurcation on posterior knee (popliteal nerve block). 10ml of 0.5% bupivacaine given in adductor canal on mid medial thigh (saphenous nerve block) Performed by: Resident/CARDIOLOGY NURSE: Jas Anglin MD Attending Physician: Beryl White MD Authorized by: Beryl White MD Associated attestation - Beryl White MD - 05/12/2024 12:48 PM EDT Saphenous block and sciatic block * Anesthesia Postprocedure Evaluation - Beryl White MD - 04/21/2024 7:03 PM EDT Department of Anesthesiology Post-procedure Note Patient: Gerson Bruner Procedure Summary Date: 04/21/24 Room / Location: [facility] OR [facility] MAIN OR Anesthesia Start: 1638 Anesthesia Stop: 1834 Procedures: DEBRIDEMENT SKIN AND SUBCU, LOWER EXTREMITY (WRVU 1.01) (Right: Foot) @AMPUTATION, ANKLE (WRVU 10.37) (Right: Ankle) Diagnosis: (right heal wound) Surgeons: Janet Carrington MD Responsible Provider: Beryl White MD Anesthesia Type: general ASA Status: 3 All Anesthesia Providers: Anesthesiologist: Beryl White MD; Lilia Galeana MD CARDIOLOGY NURSE: Annia Wilkinson CRNA Vitals Value Taken Time BP 128/67 04/21/24 1900 Temp 37.1 ??C (98.8 ??F) 04/21/24 1831 Pulse 73 04/21/24 1902 Resp 26 04/21/24 1902 SpO2 95 % 04/21/24 1902 Pain Level Vitals shown include unfiled device data. Patient Location: PACU/[facility] Level of Consciousness: Conscious but Sleepy Pain Management: Satisfactory Analgesia PONV: None Cardiovascular Status: At Baseline Respiratory Status: At Baseline Postoperative Fluid Status: Intravascular EUvolemia Possible Anesthetic Complications: NONE apparent at time of evaluation Final Primary Anesthesia Type: General (The anesthetic type performed was the same as planned.) Comments: * Anesthesia Preprocedure Evaluation - Lilia Galeana MD - 04/21/2024 2:35 PM EDT Images from the original note were not included. Pre-Anesthesia Evaluation for: Gerson Bruner a 58 y.o. male. Procedure(s): DEBRIDEMENT SKIN AND SUBCU, LOWER EXTREMITY (WRVU 1.01) Patient Active Problem List Diagnosis Date Noted ??? *Non healing left heel wound 04/20/2024 ??? Hypertensive urgency 04/11/2024 ??? Critical ischemia of lower extremity 04/11/2024 ??? Acute hypoxic respiratory failure 03/13/2024 ??? Surgical wound present 03/09/2024 ??? Status post below knee amputation, left 03/09/2024 ??? Diabetic foot ulcer 03/09/2024 ??? Blister of second toe of right foot 03/09/2024 ??? Postoperative anemia due to acute blood loss 02/25/2024 ??? Non-healing open wound of heel 02/18/2024 ??? TIA (transient ischemic attack) 07/19/2020 ??? Right sided numbness 03/07/2019 ??? CKD (chronic kidney disease) stage 5, GFR less than 15 ml/min 02/07/2019 ??? Secondary hyperparathyroidism 10/26/2018 ??? Hyperglycemia 08/10/2018 ??? Pre-transplant evaluation for CKD (chronic kidney disease) 06/02/2018 ??? Essential hypertension 01/20/2017 ??? Proteinuria 09/07/2016 ??? Anemia of chronic renal failure, stage 4 (severe) 07/19/2016 ??? Essential hypertension with goal blood pressure less than 130/80 07/19/2016 ??? Diabetes mellitus 07/19/2016 ??? Hyperlipidemia 07/19/2016 ??? Herniation of lumbar intervertebral disc with radiculopathy 08/16/2015 ??? Type II or unspecified type diabetes mellitus with neurological manifestations, uncontrolled(250.62) 07/19/2014 ??? Leg cramps 07/19/2014 ??? Cigarette smoker 07/19/2014 ??? Unspecified hearing loss 07/19/2014 Past Medical History: Diagnosis Date ??? Anemia ??? Chronic kidney disease ??? CKD (chronic kidney disease) stage 4, GFR 15-29 ml/min ??? Diabetes mellitus ??? Herniation of lumbar intervertebral disc with radiculopathy 08/16/2015 L4-5 left ??? Hypertension Past Surgical History: Procedure Laterality Date ??? PRO AMPUTATION LOW LEG THRU TIB/FIB Left 02/21/2024 @AMPUTATION, BELOW-KNEE (WRVU 15.37) performed by Kristi Renae MD at [facility] MAIN OR ??? PRO AMPUTATION LOW LEG, CIRCULAR Left 02/18/2024 @AMPUTATION, BELOW-KNEE, OPEN, GUILLOTINE (WRVU 9.79) performed by Kristi Renae MD at [facility] MAIN OR ??? PRO ANASTOMOSIS, AV, ANY SITE Left 09/05/2018 AV FISTULA CREATION, DIRECT HEMODIALYSIS, ANY SITE, EG GABRIEL FISTULA UPPER EXTREMITY (WRVU 11.9) performed by Scout Reese MD at [facility] MAIN OR ??? PRO COLONOSCOPY, REMV LESN, SNARE N/A 09/26/2019 COLONOSCOPY, POLYPECTOMY, REMOVAL LESION BY SNARE (WRVU 4.67) performed by Kaye Gibbs MD at [facility] ENDOSCOPY ??? VS ARTERIOGRAM LOWER EXTREMITY VASCULAR SURGERY 04/11/2024 VS Arteriogram Lower Extremity Vascular Surgery 04/11/2024 Kristi Renae MD [facility] INTERVENTIONL RAD Social History Tobacco Use ??? Smoking status: Every Day Current packs/day: 0.00 Types: Cigarettes Last attempt to quit: 12/26/2018 Years since quittin.3 ??? Smokeless tobacco: Never ??? Tobacco comments: smoking a few a day Substance Use Topics ??? Alcohol use: No Social History Substance and Sexual Activity Drug Use Yes ??? Types: Marijuana Comment: multiple times daily Allergies Allergen Reactions ??? Clindamycin Swelling. ??? Gabapentin swelling ??? Zoloft [Sertraline] Other reaction(s): Unsure Medications: MAR and/or home medications have been reviewed. Physical Exam: Preprocedure Vitals Current as of 04/21/24 1435 BP: 161/84 Pulse: 86 Resp: 14 SpO2: 92 Temp: 38.9 ??C (102 ??F) Height: Weight: 86.2 kg (190 lb) (04/20/24) BMI: IBW: Last edited 04/21/24 1253 by EP Currently displaying vitals information from multiple entries within 180 minutes of most recent vitals. Airway Assessment: Mallampati: II TM distance: >3 FB Neck ROM: full Cardiovascular Assessment: system normal Pulmonary Assessment: pulmonary exam normal Dental Assessment: (+) upper dentures Misc Assessment: Last Filed Perioperative Cognitive Screening Value Time User 4AT TOTAL Score: 0 02/25/2024 12:00 PM Smitha Layne RN Anesthesia Plan: ASA 3 general, with a(n) intravenous induction 58 y.o. male s/f right heel debridement PMHx: longstanding insulin-dependent T2DM and ESRD on HD ([facility]), TIA (2018, thought to be secondary to small vessel disease), well known to the Vascular Surgery Service s/p 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 ([facility]) and right SFA/PT angioplasty 04/11/24. Pt was febrile with interval worsening of a large eschar on his right heel. Last HD today. After HD, bedside nurse reported that pt had AMS. ECHO 02/2019: SUMMARY: 1. There is normal global left ventricular systolic function. The quantitative left ventricular ejection fraction by biplane Patel's method is 69%. There are no left ventricular segmental wall motion abnormalities. 2. The right ventricle is mildly dilated. Right ventricular global systolic function is normal. 3. There is no hemodynamically significant valve disease. 4. There is no evidence of a patent foramen ovale by either color Doppler or agitated saline injection. 5. See remainder of report for additional findings. Allergies: -- Clindamycin -- Swelling. -- Gabapentin -- swelling -- Zoloft [Sertraline] -- Other reaction(s): Unsure Vitals: Patient Vitals in the past 8 hrs: 04/21/24 1253, BP:161/84, Temp:(!) 38.9 ??C (102 ??F), Temp src:Oral, Pulse:86, SpO2:92 % Plan general anesthesia, standard ASA monitors, adequate PIV access. Lilia Galeana MD Addendum: Intra-op, surgeon obtained consent from spouse via phone to do an amputation. I also obtained phone consent from the spouse to do a rescue nerve block. Lilia Galeana MD Region - Other Informed Consent: Anesthetic plan and risks discussed with patient. Plan discussed with resident and attending. Anesthesia Screening documented in this encounter Miscellaneous Notes * Addendum Note - Jas Anglin MD - 04/22/2024 12:38 AM EDT Addendum created 04/22/24 0038 by Jas Anglin MD Child order released for a procedure order, Clinical Note Signed, Intraprocedure Blocks edited, SmartForm saved * Addendum Note - Beryl White MD - 04/21/2024 7:06 PM EDT Addendum created 04/21/24 190 by Beryl White MD Child order released for a procedure order, Order Canceled from Note documented in this encounter Plan of Treatment Not on file documented as of this encounter Procedures Procedure Name Priority Date/Time Associated Diagnosis Comments ANESTHESIA BLOCK Routine 04/21/2024 6:20 PM EDT documented in this encounter Results * Anesthesia Block (04/21/2024 6:20 PM EDT) Narrative Beryl White MD - 04/21/2024 6:20 PM EDT Jas Anglin MD ? 04/22/2024 12:38 AM Anesthesia Block Date/Time: 04/21/2024 6:20 PM Start Time: ??04/21/2024 6:20 PM End Time: ??04/21/2024 6:30 PM Patient Location: ??Block Room The patient was greeted; the risks and benefits of the procedure were reviewed. ?? Indication: ??Post-op Pain Control Post-op pain management at the request of surgeon. ?? Block Type: ??Saphenous nerve block/mid thigh and sciatic Laterality: ??Right Position: ??Supine Prep: ??Chlorhexidine, patient draped and mask, cap, sterile gloves, hand hygeine Skin Anesthetic: ??Skin Anesthetic: ??Lidocaine 1% ??dose: ??5 Block Technique: ?? SonoPlex ?? 21 ?? 10 cm ??Ultrasound Guided: ??YES and in-plane ??Ultrasound Image Saved ?Single-Shot: ??Single-shot Nerve Sensory/MotorTest: ??Events: no complications ?? Notes: ?? Target structures, needle, and local anesthetic spread were visualized under US guidance for the duration of the procedure. No blood aspirated, no pain on injection, no paresthesias. No needle to nerve contact was observed on ultrasound. 20ml given near sciatic bifurcation on posterior knee (popliteal nerve block). 10ml of 0.5% bupivacaine given in adductor canal on mid medial thigh (saphenous nerve block) Performed by: ?? Resident/CARDIOLOGY NURSE: ? Jas Anglin MD ?? Attending Physician: ? Beryl White MD Authorized by: Beryl White MD ?? Beryl White MD [employer] [facility] documented in this encounter Visit Diagnoses Not on filedocumented in this encounter Administered Medications Inactive Administered Medications - up to 3 most recent administrations Medication Order MAR Action Action Date Dose Rate Site acetaminophen (Ofirmev) (1,000 mg/100 mL) infusion Intravenous, Administer over 15 Minutes, PRN, Starting on Wed04/21/24 at 1655, Until Wed04/21/24 at 1835, Anesthesia Intra-op, Routine Given 04/21/2024 4:55 PM EDT 1,000 mg dexmedeTOMIDine (Precedex) (4 mcg/mL) bolus injection (Anesthsia) Intravenous, PRN, Starting on Wed04/21/24 at 1737, Until Wed04/21/24 at 1835, Anesthesia Intra-op, Routine Given 04/21/2024 5:46 PM EDT 4 mcg Given 04/21/2024 5:41 PM EDT 4 mcg Given 04/21/2024 5:37 PM EDT 4 mcg fentaNYL (pf) (50 mcg/mL) multi-dose injection Intravenous, PRN, Starting on Wed04/21/24 at 1700, Until Wed04/21/24 at 1835, Anesthesia Intra-op, Routine Given 04/21/2024 5:22 PM EDT 50 mcg Given 04/21/2024 5:00 PM EDT 50 mcg HYDROmorphone (Dilaudid) (2 mg/mL) multi-dose injection solution Intravenous, PRN, Starting on Wed04/21/24 at 1726, Until Wed04/21/24 at 1835, Anesthesia Intra-op, Routine Given 04/21/2024 5:44 PM EDT 0.2 mg Given 04/21/2024 5:26 PM EDT 0.2 mg ketamine (Ketalar) (10 mg/mL) IV bolus injection (Anesthesia) Intravenous, PRN, Starting on Wed04/21/24 at 1700, Until Wed04/21/24 at 1835, Anesthesia Intra-op Given 04/21/2024 5:22 PM EDT 10 mg Given 04/21/2024 5:00 PM EDT 30 mg lactated ringers infusion Intravenous, CONTINUOUS PRN, Starting on Wed04/21/24 at 1639, Until Wed04/21/24 at 1835, Anesthesia Intra-op New Bag 04/21/2024 4:39 PM EDT lidocaine (pf) (Xylocaine) (20 mg/mL) 2% injection syringe Intravenous, PRN, Starting on Wed04/21/24 at 1645, Until Wed04/21/24 at 1835, Anesthesia Intra-op, Routine Given 04/21/2024 4:45 PM EDT 50 mg ondansetron (pf) (Zofran) (2 mg/mL) injection Intravenous, PRN, Starting on Wed04/21/24 at 1745, Until Wed04/21/24 at 1835, Anesthesia Intra-op, Routine Given 04/21/2024 5:45 PM EDT 4 mg PHENYLephrine in NS (PF) (KIA-SYNEPHRINE) 0.8 mg/10 mL (80 mcg/mL) multi-dose injection Syringe Intravenous, PRN, Starting on Wed04/21/24 at 1714, Until Wed04/21/24 at 1835, Anesthesia Intra-op, Routine Given 04/21/2024 5:19 PM EDT 80 mcg Given 04/21/2024 5:14 PM EDT 80 mcg propofoL (Diprivan) (10 mg/mL) infusion Intravenous, CONTINUOUS PRN, Starting on Wed04/21/24 at 1645, Until Wed04/21/24 at 1835, Anesthesia Intra-op, Routine New Bag 04/21/2024 4:45 PM EDT 30 mcg/kg/min 13.842 mL/hr propofoL (Diprivan) 10 mg/mL bolus injection (Anesthesia) Intravenous, PRN, Starting on Wed04/21/24 at 1645, Until Wed04/21/24 at 1835, Anesthesia Intra-op Given 04/21/2024 6:15 PM EDT 50 mg Given 04/21/2024 5:59 PM EDT 50 mg Given 04/21/2024 5:54 PM EDT 50 mg vancomycin (Vancocin) injection Intravenous, PRN, Starting on Wed04/21/24 at 1639, Until Wed04/21/24 at 1835, Anesthesia Intra-op, Routine Given 04/21/2024 4:39 PM EDT 1 g documented in this encounter Care Teams Human Resources Benefits Manager Relationship Specialty Start Date End Date Ken Greer MD PCP - General Family Medicine 12/30/23 05/15/24 documented as of this encounter
--- OUTSIDE RECORDS SUMMARY | 2024-12-05 12:35 | XMS_ITS | Encounter Summary ---
Author Organization Formerly [facility] [place] [address] Care Team Providers Care Garment Liner Name Role Phone Ken Greer MD Primary Care Provider [phone] Reason for Visit * Reason Comments Foot Pain * Auth/Cert (Routine) Specialty Diagnoses / Procedures Referred By Conteben t Referred To Contact Diagnoses Non healing left heel wound Sepsis with acute organ dysfunction, due to unspecified organism, unspecified organ dysfunction type, unspecified whether septic shock present Kristi Renae MD [facility] [place] [address] [facility] Referral ID Status Reason Start Date Expiration Date Visits Re quested Visits Authorized [id number] 1 1 Encounter Details Date Type Department Care Team (Late st Contact Info) Description 04/25/2024 2:50 PM EDT - 04/25/2024 5:48 PM EDT Surgery [place] [id number] Janet Carrington MD [facility] [place] [address] AMPUTATION, BELOW-KNEE, SECONDARY CLOSURE OR SCAR REVISION (WRVU 8.76) Social History Tobacco Use Types Packs/Day Years Used Date Smoking Tobacco: Every Day Cigarettes Last attempted to quit: 12/26/2018 Smokeless Tobacco: Never Comments:smoking a few a day Alcohol Use Standard Drinks/Week Comments No 0 (1 standard drink = 0.6 oz pur e alcohol) [facility] Utilities Answer Date Recorded In the past 12 months has th e electric, gas, oil, or water [employer] threatened to shut off services in your [...] in a mcfp (including now)? 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 His BKA [...] Operations/Major Procedures: 02/20: Left BKA on 02/21/24 ([place]) 04/11: Right SFA angioplasty, Right SFA DCBA, Right PT angioplasty ([place]) Hospital Course: Patient admitted to Vascular Surgery [...] TIA, and severe vascular disease who [facility] sepsis due to Right heel infection s/p [...] (H) 04/29/2024 Discharge Condition: stable Discharge to: [facility] [address] [place] [id number] Future Appointments and Orders Future Appointments and Orders Future Appointments Provider Department Dept Phone 05/16/2024 3:30 PM Jigna Freire APRN Vascular Surgery at [facility] Arrive at: Summer Law Clerk Area [phone] Future Orders Complete By Expires Referral to [facility] [REF34 Custom] As directed Process Instructions: If no progress note charted, please enter Clinical details in comments. Scheduling Instructions: Comments: Please evaluate Gerson Bruner for admission to Home [facility]. [address] [place] [address] (home) Date of : 1965 Inpatient DOCUMENTATION FOR VNA SERVICES (INCLUDING THOSE PATIENTS WITH MEDICARE COVERAGE REQUIRING HOME VNA SERVICES AND/OR HOSPICE SERVICES) PATIENT'S LOCATION: Gerson Bruner [address] [facility] [place] [address] (home) Cell: Telephone Information: Astrophysics Professor's Name: Xander In discussion with the attending physician, it is certified that this patient is under their care and that they, or a Nurse Practitioner, Clinical Nurse specialist or Physician Area Forester who is working directly with them, had [...] for managing ADLs. HOME HEALTH CARE AGENCY: [facility] [address] [place] [address] START OF CARE: within 24-48 hours of [...] to be obtained from this patient's PCP: MD Moh[address] / [place] [address] . All [facility] agencies which cover the area of patient's [...] For any problems or questions please call [phone] For issues on weeknights after 5pm and weekends please call [phone] and ask for the Vascular Fellow dental receptionist. Ruby Mcgill APRN * Shruthi Quan MD [...] Shruthi Quan MD Vascular Fellow PGY6, pager [phone] documented in this encounter Discharge Instructions * Patient Instructions* Ruby Mcgill APRN - 04/29/2024 11:48 AM EDT Patient Instructions [...] For any problems or questions please call [phone] For issues on weeknights after 5pm and weekends please call [phone] and ask for the Vascular Fellow dental receptionist. 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 Bathroom Set-up: walk in shower, [...] plan as stated. Time IN / OUT: 7627-9128 Total Minutes, Physical Therapy: 22 Angely Gomez PT , DPT Pager: [phone] Physical Therapy Inpatient Rehabilitation Department * Donavon [...] AM EDT Hypertension/Nephrology Inpatient Follow-up Gerson Bruner [id number] 1965 ID: 58 y.o. 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 Prior vascular history 02/20: Left BKA on 02/21/24 ([place]) 04/11: Right SFA angioplasty, Right SFA DCBA, Right PT angioplasty ([place]) Operations This Hospitalization 04/21/2024: Right through ankle [...] Artery 190 Dorsalis Pedis (Ankle) Artery >240 Ogle-Biphasic Posterior Tibial (Ankle) Artery >240 Monophasic Great [...] Service s/p 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 ([place]) and right SFA/PT angioplasty 04/11/24 who presented [...] Impairment (Lower Extremity Amputation) Goal: Optimal Mobility Slope and Safety Outcome: Ongoing (Interventions Implemented as [...] a hospital length of stay nutrition evaluation. [place] Worker unable to meet with Pt, Pt's chart [...] unless consulted in the interim. Maicol Dumont, Metal Roofing Mechanic * Ismael Menchaca MD - 04/28/2024 2:37 [...] his meal. Ruby Villareal MD Nephrology Pager: [phone] * Ismael Menchaca MD - 04/28/2024 10:58 [...] PO BID Sciatic Catheter infusion 0.2% Ropivacaine 6/3 - Paused Tizanidine 4mg PO q8 PRN [...] MD 04/28/2024 Acute Pain Medicine Service Pager: [phone] I have seen and examined the patient, [...] Service s/p 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 ([place]) and right SFA/PT angioplasty 04/11/24 who presented with infected right heal and systemic signs of illness. Prior vascular history 02/20: Left BKA on 02/21/24 ([place]) 04/11: Right SFA angioplasty, Right SFA DCBA, Right PT angioplasty ([place]) Operations This Hospitalization 04/21/2024: Right through ankle [...] Artery 190 Dorsalis Pedis (Ankle) Artery >240 Ogle-Biphasic Posterior Tibial (Ankle) Artery >240 Monophasic Great [...] Service s/p 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 ([place]) and right SFA/PT angioplasty 04/11/24 who presented [...] your insulin doses adjusted. Renu Gil APRN [facility] Endocrinology Diabetes Management Pager [phone] * Shruthi Quan MD - 04/27/2024 2:37 PM EDT Vascular Surgery Progress Note Patient ID Gerson Bruner is a 58 y.o. 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 Agreed to stay. Kristi Rneae MD * Mary Kenny MD - 04/27/2024 12:04 PM EDT Nephrology Dialysis Note REASON FOR CONSULTATION: ESRD Management S/p R BKA on 04/11 INTERVAL HISTORY: Had HD yesterday with 2L UF Non oliguric He denied active complaints or concerns He has a chair at [facility] (his regular dialysis unit) and was trying [...] dialysis from 12K to 16K C/w sevelamer 87535 TIDWM Renal diet Start lisionpril 10 mg PO daily C/w Cholecalciferol 1000 units daily MEDICATIONS: insulin lispro 1-6 Units Subcutaneous Q4H [facility] insulin glargine (Lantus;Semglee) (100 unit/mL) subcutaneous injection 20 Units Subcutaneous Daily sevelamer carbonate 1,600 mg Oral TID lidocaine 1 patch Transdermal Q24H insulin lispro 1-10 Units Subcutaneous TID dilTIAZem 30 mg Oral Q6H [facility] sodium chloride 0.9 % (flush) 5 mL Intravenous BID heparin (porcine) 5,000 Units Subcutaneous 2 times per day acetaminophen 975 mg Oral Q6H [facility] aspirin EC 81 mg Oral Daily atorvastatin 40 mg Oral QPM pantoprazole EC 40 mg Oral Daily pregabalin 100 mg Oral BID piperacillin-tazobactam 3.375 g Intravenous Q12H carvediloL 12.5 mg Oral BID Vasoactive/Sedating Meds: ROpivacaine VITALS: Last value Range [...] PO BID Sciatic Catheter infusion 0.2% Ropivacaine 6/3 Tizanidine 4mg PO q8 PRN Assessment: Patient [...] MD 04/27/2024 Acute Pain Medicine Service Pager: [phone] * Elle Finn RN - 04/26/2024 10:13 PM EDT Patient was transferred from [facility] to [place] [address]. With AMbit pump on the right thigh [...] 10.37) performed by Janet Carrington MD at [facility] MAIN OR PRO AMPUTATION LOW LEG THRU TIB/FIB Left 02/21/2024 @AMPUTATION, BELOW-KNEE (WRVU 15.37) performed by Kristi Renae MD at [facility] MAIN OR PRO AMPUTATION LOW LEG, CIRCULAR Left 02/18/2024 @AMPUTATION, BELOW-KNEE, OPEN, GUILLOTINE (WRVU 9.79) performed by Kristi Renae MD at [facility] MAIN OR PRO ANASTOMOSIS, AV, ANY SITE Left 09/05/2018 AV FISTULA CREATION, DIRECT HEMODIALYSIS, ANY SITE, EG GABRIEL FISTULA UPPER EXTREMITY (WRVU 11.9) performed by Scout Reese MD at [facility] MAIN OR PRO COLONOSCOPY, REMV LESN, SNARE N/A 09/26/2019 COLONOSCOPY, POLYPECTOMY, REMOVAL LESION BY SNARE (WRVU 4.67) performed by Kaye Gibbs MD at [facility] ENDOSCOPY PRO DEBRIDEMENT SUBCUTANEOUS TISSUE 20 SQCM/< Right 04/21/2024 DEBRIDEMENT SKIN AND SUBCU, LOWER EXTREMITY (WRVU 1.01) performed by Janet Carrington MD at [facility] MAIN OR VS ARTERIOGRAM LOWER EXTREMITY VASCULAR SURGERY 04/11/2024 VS Arteriogram Lower Extremity Vascular Surgery 04/11/2024 Kristi Renae MD [facility] INTERVENTIONL RAD Active Non-Hospital Problems Diagnosis Hypertensive [...] she is currently applying to be his time stamp assembler caregiver and will be able to assist him time stamp assembler as needed. Bathroom Set-up: walk in shower, [...] OUT: 14:45-15:23 Total Time: 38 minutes; rosalva tam, PT, Doctor of Physical Therapy Pager: [phone] Physical Therapy Inpatient Rehabilitation Department * Dayana [...] Service s/p 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 ([place]) and right SFA/PT angioplasty 04/11/24 who presented with infected right heal and systemic signs of illness. Prior vascular history 02/20: Left BKA on 02/21/24 ([place]) 04/11: Right SFA angioplasty, Right SFA DCBA, Right PT angioplasty ([place]) Operations This Hospitalization 04/21/2024: Right through ankle [...] 10.37) performed by Janet Carrington MD at [facility] MAIN OR PRO AMPUTATION LOW LEG THRU TIB/FIB Left 02/21/2024 @AMPUTATION, BELOW-KNEE (WRVU 15.37) performed by Kristi Renae MD at [facility] MAIN OR PRO AMPUTATION LOW LEG, CIRCULAR Left 02/18/2024 @AMPUTATION, BELOW-KNEE, OPEN, GUILLOTINE (WRVU 9.79) performed by Kristi Renae MD at [facility] MAIN OR PRO ANASTOMOSIS, AV, ANY SITE Left 09/05/2018 AV FISTULA CREATION, DIRECT HEMODIALYSIS, ANY SITE, EG GABRIEL FISTULA UPPER EXTREMITY (WRVU 11.9) performed by Scout Reese MD at [facility] MAIN OR PRO COLONOSCOPY, REMV LESN, SNARE N/A 09/26/2019 COLONOSCOPY, POLYPECTOMY, REMOVAL LESION BY SNARE (WRVU 4.67) performed by Kaye Gibbs MD at [facility] ENDOSCOPY PRO DEBRIDEMENT SUBCUTANEOUS TISSUE 20 SQCM/< Right 04/21/2024 DEBRIDEMENT SKIN AND SUBCU, LOWER EXTREMITY (WRVU 1.01) performed by Janet Carrington MD at [facility] MAIN OR VS ARTERIOGRAM LOWER EXTREMITY VASCULAR SURGERY 04/11/2024 VS Arteriogram Lower Extremity Vascular Surgery 04/11/2024 Kristi Renae MD [facility] INTERVENTIONL RAD Social History: Patient lives with his and cat in a walk out lower level of his brother's home. He reported heis building a house, but it is not complete. Pt is unable to access the main level of his brother'shome. has filled out paperwork to be Pt's time stamp assembler caregiver. Home Setup: Bathroom has a walk [...] backward and forward scoot transfer bed to [facility]. Hygiene: assisted with hygiene. Functional Mobility: Supine to sit: Not assessed - seated EOB upon arrival. Sit to stand: N/A - bilateral BKA without prostheses. Lateral tranfers: Mod assist of 2 for backward and forward scoot transfer bed to [facility]. Sit to supine: Min assist secondary to [...] at wheelchair level at the sink at [facility]. Pt will complete toileting routine including transfer, clothing management, and hygiene at [facility]. Pt will complete sponge bathing/showering routine seated in the bathroom with supervision assist. Pt will complete LB dressing with at [facility] using AE/compensatory strategies as needed. Pt will complete functional transfers at [facility] for increased participation in (I)ADLs. Pt will [...] and measurable assessment of functional outcome. Pager: [phone] Dayana Jordan OT 04/27/2024 Occupational Therapy Rehabilitation Department * Ruby Villareal MD - 04/26/2024 1:07 PM EDT NEPHROLOGY PROGRESS NOTE Patient seen at dialysis. Clinical and laboratory data reviewed. Stable treatment. No issues with dialysis or access. Patient was not examined because he was repeatedly yelling and cursing at this senior technical writer. He was complaining about pain. I asked [...] the response. Ruby Villareal MD Nephrology Pager: [phone] * Shruthi Quan MD - 04/26/2024 11:08 AM EDT Vascular Surgery Progress Note Patient ID Gerson Bruner is a 58 y.o. 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 Prior vascular history 02/20: Left BKA on 02/21/24 ([place]) 04/11: Right SFA angioplasty, Right SFA DCBA, Right PT angioplasty ([place]) Operations This Hospitalization 04/21/2024: Right through ankle amputation ([place]) 04/25/2024: Right completion above knee amputation ([place]) 24 hour events/Subjective - Dialysis yesterday am which he tolerated well (// schedule) - OR yesterday and did well [...] 3 wbc, hgb, hct plt Recent Labs 04/26/24 04504/25/24 0923 04/24/24 0521 WBC 13.1* 8.0 9.8* HGB 8.9* 9.2* 9.1* HCT 29.1* 31.8* 30.1* PLATELET 429* 391* 381* Last 3 Lytes Recent Labs 04/26/24 04504/25/24 0923 04/24/24 0521 NA 139 140 139 K 5.5* 5.5* 5.5* CL 97* 99 99 CO2 23 23 26 BUN 57* 52* 56* CREATININE 8.00* 6.89* 7.36* Last Ca, Mg, Phos Recent Labs 04/26/24 0458 CALCIUM 8.5 PHOS 7.4* MAGNESIUM 0.83 Microbiology [...] Artery 190 Dorsalis Pedis (Ankle) Artery >240 Ogle-Biphasic Posterior Tibial (Ankle) Artery >240 Monophasic Great [...] insulin- dependent T2DM and ESRD on HD ([place]), TIA (2018, thought to be secondary to small vessel disease), well known to the Vascular Surgery Service s/p 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 ([place]) and right SFA/PT angioplasty 04/11/24 who presented [...] Vascular Surgery 04/26/24 [id number] * Renu Gil, BACK SEWER - 04/26/2024 6:53 AM EDT Follow Up [...] 1136 04/25/24 0756 04/25/24 0419 04/25/24 0008 04/24/24200204/24/24 1712 04/24/24 1531 POCGLU 112 154 73 [...] carb control level 2 Renu Gil APRN [facility] Endocrinology Diabetes Management Pager [phone] * Jean Henning MD - 04/25/2024 9:37 [...] 2.5 - 4.5 mg/dL Type and screen ([facility]/CGP/CHASE) Result Value Ref Range ABORH Type A POSITIVE Patient BB History Found Expires at 2359 on: 04/28/2024 Ab Screen Interp Negative ABORH Recheck Status Result Value Ref Range ABORH Type Recheck Completed Type and Screen Validity Result Value Ref Range T&S only valid at [facility] Hosp POCT Glucose Result Value Ref Range [...] mcL Appearance UA Turbid (A) Clear Spec [place] UA 1.022 1.005 - 1.030 Color UA [...] Myles RN - 04/25/2024 7:00 PM EDT 1807: Gerson Bruner arrives from OR 14 on bed to PACU 1. Placed patient on monitor with parametersadjusted to be appropriate for patient with alarms on and active. Vascular team requests that surgical site/stump be elevated, but that knee be completely straight/unsupported. 1830: Break coverage provided by PACU nurseKarli. 1915: Patient meets PACU discharge criteria. Awaiting callback [...] appropriate/available. Appreciate any updated activity orders/precautions. Zandra Tucker PT, Doctor of Physical Therapy Pager: [phone] Physical Therapy Inpatient Rehabilitation Department * Ruby [...] with meals. Ruby Villareal MD Nephrology Pager: [phone] * Renu Gil APRN - 04/25/2024 6:44 AM EDT Follow Up [...] 1136 04/25/24 0756 04/25/24 0419 04/25/24 0008 04/24/24200204/24/24 1712 04/24/24 1531 04/24/24 1158 04/24/24 0736 [...] carb control level 2 Renu Gil APRN [facility] Endocrinology Diabetes Management Pager [phone] * Munira Jorge MD - 04/25/2024 5:56 AM EDT Vascular Surgery Progress Note Patient ID Gerson Bruner is a 58 y.o. 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 His BKA [...] vascular history 02/20: Left BKA on 02/21/24 ([place]) 04/11: Right SFA angioplasty, Right SFA DCBA, Right PT angioplasty ([place]) Operations This Hospitalization none Active Hospital Problems [...] WC 24 hour events/Subjective - Elevated BS at [place] 237 - Underwent HD on Tuesday 04/24. Patient's routine HD is M/W/F. - OR was pushed back to today - Iron 27, Ferritin 1173, TIBC 139 - NPO since ID for OR today Objective BMI: Weight: 86.2 [...] wbc, hgb, hct plt Recent Labs 04/24/24 0504/23/24 0422 04/22/24 0436 WBC 9.8* 9.9* 15.0* HGB 9.1* 9.1* 8.5* HCT 30.1* 30.7* 28.6* PLATELET 381* 346 328 Last 3 Lytes Recent Labs 04/24/2452004/23/24 0422 04/22/24 043 NA 139 137 138 K 5.5* 4.7 [...] Artery 190 Dorsalis Pedis (Ankle) Artery >240 Ogle-Biphasic Posterior Tibial (Ankle) Artery >240 Monophasic Great [...] Service 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 His BKA [...] vascular history 02/20: Left BKA on 02/21/24 ([place]) 04/11: Right SFA angioplasty, Right SFA DCBA, Right PT angioplasty ([place]) Operations This Hospitalization none Active Hospital Problems [...] Daily insulin lispro 1-6 Units Subcutaneous Q4H [facility] insulin lispro 1-10 Units Subcutaneous TID dilTIAZem 30 mg Oral Q6H [facility] sodium chloride 0.9 % (flush) 5 mL Intravenous BID heparin (porcine) 5,000 Units Subcutaneous 2 times per day acetaminophen 975 mg Oral Q6H [facility] aspirin EC 81 mg Oral Daily atorvastatin 40 mg Oral QPM pantoprazole EC 40 mg Oral Daily pregabalin 100 mg Oral BID sevelamer carbonate 800 mg Oral TID piperacillin-tazobactam 3.375 g Intravenous Q12H carvediloL 12.5 mg Oral BID 24 hour events/Subjective - Elevated BS - [...] 6.97* Last Ca, Mg, Phos Recent Labs 04/24/24 0521 CALCIUM 9.0 PHOS 6.8* MAGNESIUM 0.93 Microbiology [...] Artery 190 Dorsalis Pedis (Ankle) Artery >240 Ogle-Biphasic Posterior Tibial (Ankle) Artery >240 Monophasic Great [...] Service 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 His BKA [...] with meals. Ruby Villareal MD Nephrology Pager: [phone] * amado Ed - 04/23/2024 4:00 PM EDT [facility] Encounter Note Patient Name: Gerson Bruner : [id number] MR#: [id number] Admit Date: 04/20/2024 4:43 PM Hospital Day 3 days Narrative:Visited to introduce and assess acceptance of [facility] services. Assessment: Patient was awake, alert, oriented [...] Outcome:Provided emotional, spiritual support and listening presence. [facility] services accepted. Conversation to build trusting relationship. [...] Dariana Albarado APRN Section of Nephrology Pager [phone] Associated attestation - Gisele Mosqueda MD - [...] Service 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 His BKA [...] vascular history 02/20: Left BKA on 02/21/24 ([place]) 04/11: Right SFA angioplasty, Right SFA DCBA, Right PT angioplasty ([place]) Operations This Hospitalization none Active Hospital Problems [...] BID WC 24 hour events/Subjective - Elevated FSGs - Refused NC when hypoxic - WBC 10 from 15 - Afib w/ RVR during HD, converted to NSR. Card consulted, dilt spaced out Objective BMI: Weight: 86.2 kg [...] 5.70* Last Ca, Mg, Phos Recent Labs 04/23/24 0422 CALCIUM 9.1 PHOS 5.6* MAGNESIUM 0.88 Microbiology [...] Artery 190 Dorsalis Pedis (Ankle) Artery >240 Ogle-Biphasic Posterior Tibial (Ankle) Artery >240 Monophasic Great [...] Right PT angioplasty ([place]) Operations This Hospitalization none Active Hospital Problems [...] 7.05* Last Ca, Mg, Phos Recent Labs 04/22/24 0436 CALCIUM 8.4* PHOS 7.9* MAGNESIUM 0.86 Microbiology [...] Artery 190 Dorsalis Pedis (Ankle) Artery >240 Ogle-Biphasic Posterior Tibial (Ankle) Artery >240 Monophasic Great [...] insulin- dependent T2DM and ESRD on HD ([facility]), TIA (2018, thought to be secondary to small vessel disease), well known to the Vascular Surgery Service 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 His BKA [...] week. Kristi Renae MD * Dariana Albarado, BACK SEWER - 04/22/2024 10:45 AM EDT PATIENT: Gerson [...] % STUDIES: Labs: CBC: Recent Labs 04/22/2443504/21/24 1624 04/20/24 2332 WBC 15.0* 19.8* 17.1* HGB 8.5* 9.4* 8.9* PLATELET 328 348 340 Chemistry: Recent Labs 04/22/2443504/21/24 1624 04/20/24 2332 NA 138 137 132* K 5.3* 4.6 5.1* CL 99 97* 95* CO2 22 21* 23 BUN 39* 32* 42* CREATININE 6.97* 5.70* 7.05* GLUCOSE 195 142 185 Recent Labs 04/22/24435 04/21/24 1624 04/20/24 2332 04/20/24 2217 CALCIUM 8.4* [...] Dariana Albarado APRN Section of Nephrology Pager [phone] Associated attestation - Gisele Mosqueda MD - 04/22/2024 4:17 PM EDT I have seen and examined Mr Bruner on hemodialysis in the acute dialysis unit, reviewed the relevantclinical and laboratory data and images and discussed the case with Melissa Morrow NP. Her Megan Guzman BREAKER UNIT ASSEMBLER. Her note represents our jointly formulated assessment [...] will continue to follow. * Elle Finn V RN - 04/21/2024 10:40 PM EDT Patient [...] Resume diet - Floor status Maritza Jimenez, Vascular Surgery 04/21/2024 [id number] * Ruby Duran RN - 04/21/2024 7:01 PM EDT 1899: Report from VIDYA Guido. 1999: Report called to VIDYA Almeida. VSS, pt alert and disoriented to place and situation. Denies pain or nausea. 2024: Pt transported back to 410. Spouse and mother at bedside. * Jules [...] vascular history 02/20: Left BKA on 02/21/24 ([place]) 04/11: Right SFA angioplasty, Right SFA DCBA, Right PT angioplasty ([place]) Operations This Hospitalization none Active Hospital Problems [...] Artery 190 Dorsalis Pedis (Ankle) Artery >240 Ogle-Biphasic Posterior Tibial (Ankle) Artery >240 Monophasic Great [...] pt come around, AOx3 (disoriented to time). MD was spoken to via phone. 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 His BKA [...] Operations/Major Procedures: 02/20: Left BKA on 02/21/24 ([place]) 04/11: Right SFA angioplasty, Right SFA DCBA, Right PT angioplasty ([place]) Review of Systems: General: Endorses fevers, chills, [...] 15.37) performed by Kristi Renae MD at [facility] MAIN OR PRO AMPUTATION LOW LEG, CIRCULAR Left 02/18/2024 @AMPUTATION, BELOW-KNEE, OPEN, GUILLOTINE (WRVU 9.79) performed by Kristi Renae MD at [facility] MAIN OR PRO ANASTOMOSIS, AV, ANY SITE Left 09/05/2018 AV FISTULA CREATION, DIRECT HEMODIALYSIS, ANY SITE, EG GABRIEL FISTULA UPPER EXTREMITY (WRVU 11.9) performed by Scout Reese MD at [facility] MAIN OR PRO COLONOSCOPY, REMV LESN, SNARE N/A 09/26/2019 COLONOSCOPY, POLYPECTOMY, REMOVAL LESION BY SNARE (WRVU 4.67) performed by Kaye Gibbs MD at [facility] ENDOSCOPY VS ARTERIOGRAM LOWER EXTREMITY VASCULAR SURGERY 04/11/2024 VS Arteriogram Lower Extremity Vascular Surgery 04/11/2024 Kristi Renae MD [facility] INTERVENTIONL RAD Social History: Social History Socioeconomic [...] wbc, hgb, hct plt Recent Labs 04/20/24 193 WBC 17.0* HGB 8.3* HCT 25.9* Last 3 Lytes Recent Labs 04/20/24 2217 04/20/24 1709 03/14/24 0349 NA 132* 133* 140 K Not Perf 5.5* 4.8 CL 97* 94* 100 CO2 21* 25 27 BUN 41* 41* 52* CREATININE 6.58* 6.27* 5.92* Last Ca, Mg, Phos Recent Labs 04/20/242216 CALCIUM 8.5 PHOS 5.8* MAGNESIUM 0.83 Last 3 Coags No results for input(s): PT, INR, PTT in the last 168 hours. Pertinent Radiographic/Diagnostic Results: Results for orders placed or performed during the hospital encounter of 04/20/24 XR Chest One View (Exam End: 04/20/2024 5:44 PM) Result Value WORKSTATION ID [id number] Impression Borderline size of the heart. Mild pulmonary vascular congestion without overt edema. No effusion. Thank you for letting us participate in the care of this patient. If you are a health care provider and have any questions regarding this report, please contact the number below. For patients who have questions please contact the health dialysis patient care technician that requested your imaging first. Electronically signed by: Ludmila Shea MD, [facility] ([phone]), at 04/20/2024 6:31 PM XR Foot Min 3 views Right (Generic) (Exam End: 04/20/2024 5:44 PM) Result Value WORKSTATION ID [id number] Impression Known wound at the heel of the right foot. No discrete evidence of osteomyelitis within the limitation of radiography. Thank you for letting us participate in the care of this patient. If you are a health care provider and have any questions regarding this report, please contact the number below. For patients who have questions please contact the health dialysis patient care technician that requested your imaging first. Electronically signed by: Ludmila Shea MD, [facility] ([phone]), at 04/20/2024 6:28 PM XR Ankle Min 3 views Right (Generic) (Exam End: 04/20/2024 5:44 PM) Result Value WORKSTATION ID [id number] Impression Known wound at the heel of the right foot. No discrete evidence of osteomyelitis within the limitation of radiography. Thank you for letting us participate in the care of this patient. If you are a health care provider and have any questions regarding this report, please contact the number below. For patients who have questions please contact the health dialysis patient care technician that requested your imaging first. Vascular Labs: MELLY - legs 02/18/24 Right Pressure (mm Hg) Waveform TBI Brachial Artery 190 Dorsalis Pedis (Ankle) Artery >240 Ogle-Biphasic Posterior Tibial (Ankle) Artery >240 Monophasic Great [...] ppx Nikky Rao MD Vascular Surgery Pager: [phone] documented in this encounter Nursing Notes * [...] for about 3 days, patient's states that marthas had chills at home, has also been [...] T waves ED Course as of 04/20/242001 [facility] Apr 20, 2024 1818 WBC(!): 18.4 1818 [...] who have questions please contact the health dialysis patient care technician that requested your imaging first. Electronically signed by: Ludmila Shea MD, [facility] ([phone]), at 04/20/2024 6:31 PM XR Foot Min 3 views Right (Generic) Final [...] who have questions please contact the health dialysis patient care technician that requested your imaging first. Electronically signed by: Ludmila Shea MD, [facility] ([phone]), at 04/20/2024 6:28 PM XR Ankle Min 3 views Right (Generic) Final [...] who have questions please contact the health dialysis patient care technician that requested your imaging first. Electronically signed by: Ludmila Shea MD, [facility] ([phone]), at 04/20/2024 6:28 PM Patient has exception to receiving full IV [...] [facility] 3 days of worsening [...] at triage. Pt escorted to room by Vanna's Vanity. Pau Burt APRN 04/20/24 1646 documented in this encounter [...] this afternoonas he wanted to go home. Clay House Worker paged team twice and the Certified Pest Control Technician came to speak with patient. Xander wasvery frustrated as the thought he was going to go home after the pain pump was out. He decided that he wanted to go home AMA. Certified Pest Control Technician was getting the form and senior technical writer spoke with patient and spouse called his [...] enjoys being outside and in the shields. Clay House Worker spoke with the team and they want [...] will be able to discharge home tomorrow. Clay House Worker was clear with Xander and spouse that discharge is dependent on good pain control and safe transfers. Xander apologetic about his outburst as, I am not a bad elena, but people must hate me for acting like this. Clay House Worker let Xander know that staff understand how [...] Impairment (Lower Extremity Amputation) Goal: Optimal Mobility Slope and Safety Outcome: Ongoing (Interventions Implemented as [...] HD Facility Notified of Discharge Plan Location: [facility] HD Chair Confirmed: 0 HD ChairDetails: MWF 0600 Home Health Services: Registered Nurse Agency Referrals: [facility]a and [facility] Transportation: family or friend will provide *Spouse Melissa [phone] Barriers to discharge: Discharge planning *[facility] HD MWF 0600, and [place] [facility] restart referrals opened 04/21 Plan going forward: Called and spoke with patient regarding PT/OT evaluation and recommendations for discharge. Patient is declining going to rehab both acute and SNF at this time. He stated that hiswife is his 17/05 caregiver, sister is JEWEL FLAT SURFACER and mother willing to help manage things [...] Impairment (Lower Extremity Amputation) Goal: Optimal Mobility Slope and Safety Outcome: Ongoing (Interventions Implemented as [...] Impairment (Lower Extremity Amputation) Goal: Optimal Mobility Slope and Safety Outcome: Ongoing (Interventions Implemented as [...] Discussed with Dr. Welsh. Nina Vides PGY-4 [facility] Endocrine Fellow. I have been in the patient's care area and reviewed Dr. Nina Vides's above history and I agree with the details as written. The assessment and plan were formulated in discussion with me and Jade with them as documented. Izaiah Welsh MD, PhD, FACP, FACE * Plan of Care - Elle Finn RN - 04/27/2024 7:33 AM EDT OUTCOME [...] juice. Agreed to have pudding 0430~ APS dental receptionist provider was paged and came to bedside [...] Impairment (Lower Extremity Amputation) Goal: Optimal Mobility Slope and Safety Outcome: Ongoing (Interventions Implemented as [...] Impairment (Lower Extremity Amputation) Goal: Optimal Mobility Slope and Safety Outcome: Ongoing (Interventions Implemented as [...] MD 04/26/2024 Acute Pain Medicine Service Pager: [phone] * Consult Note - Simón Ponce RN [...] HD Facility Notified of Discharge Plan Location: [facility] [place] HD Chair Confirmed: 0 HD ChairDetails: MWF 0600 Home Health Services: Registered Nurse Agency Referrals: [facility] for dialysis Transportation: family or friend will provide *Spouse Melissa [phone] Barriers to discharge: Discharge planning *[facility] [place] HD MWF 0600, and [facility] restart referrals opened 04/21 [...] Impairment (Lower Extremity Amputation) Goal: Optimal Mobility Slope and Safety Outcome: Ongoing (Interventions Implemented as [...] Cohen MD - 04/25/2024 5:59 PM EDT [facility] Operative Note Patient Name: Gerson Bruner : [id number] MR#: [id number] Case Date: 04/25/2024 Surgeon: Surgeons and Role: [...] longstanding insulin-dependent T2DM and ESRD on HD ([place]), TIA (2018, thought to be secondary to small vessel disease), well known to the Vascular Surgery Service 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 His BKA [...] veins was controlled by oversewing in a tefnnl-xs-ghfjr fashion with 3-0 silk.The tibia was circumferentially [...] veins was controlled by oversewing in a uejwwl-su-mngqp fashion with 3-0 silk. Redundant subcutaneous tissueon the posterior flap was removed with the amputation knife. Hemostasis was then achieved by use vqriesvn-ox-mwqvm stitches. We then used interrupted 2-0 Vicry [...] Impairment (Lower Extremity Amputation) Goal: Optimal Mobility Slope and Safety Outcome: Ongoing (Interventions Implemented as [...] HD Facility Notified of Discharge Plan Location: [facility] HD Chair Confirmed: 0 HD ChairDetails: MWF 0600 Home Health Services: Registered Nurse Agency Referrals: [facility] Transportation: family or friend will provide *Spouse Melissa [phone] Barriers to discharge: Discharge planning *[facility] MWF 0600, and [facility] restart referrals opened 04/21 [...] Impairment (Lower Extremity Amputation) Goal: Optimal Mobility Slope and Safety Outcome: Ongoing (Interventions Implemented as [...] brought him banana bread, soup and lasagna. Clay House Worker did educate Xander on being careful with what he eats so his BG doesn't go too high. Xander was a bit frustrated and insisted that if we would just give him what he takes at home he will be fine. Clay House Worker explained about the ordersets and how it [...] Care Goal: Plan of Care Review 04/23/2024 1526 by Sofy Ross RN Outcome: Ongoing (Interventions Implemented as Appropriate) 04/23/2024 152 by Sofy Ross RN Outcome: [...] (Interventions Implemented as Appropriate) 04/23/2024 1525 by Gregware, Sofy A, RN Outcome: Ongoing (Interventions Implemented as Appropriate) [...] Impairment (Lower Extremity Amputation) Goal: Optimal Mobility Slope and Safety 04/23/2024 1526 by Sofy Ross [...] with PMH significant for T2DM, ESRD on HD([place]), TIA (2018), s/p Left BKA on 02/21/24 and right SFA/PT angioplasty 04/11/24, who was admitted on 04/20/2024 currently being treated for RLE wound s/p R BKA. We are being consulted to assist with diabetes management and to provide a review of [facility] diabetes care. Diabetes History: Gerson Bruner has [...] communicated with the team. Peter Colvin MD [facility] Endocrinology PGY-5, Fellow Pager #[phone] Associated attestation - Eriberto Shabazz MD - [...] Impairment (Lower Extremity Amputation) Goal: Optimal Mobility Slope and Safety Outcome: Ongoing (Interventions Implemented as [...] OUTCOME SUMMARY: Patient restless this morning when senior technical writer came on shift. VSS, except pain- see MAR for interventions. Clay House Worker noted that Xander's O2 was going down to low 80s and encouraged him to take some deep breathsand explained the need to place him on O2. Xander rather frustrated and stated multiple times throughout the day that is just what his body does and that he is fine. Clay House Worker continued education with patient and spouse when [...] chest pain during shift O: NSR from [id number], then went into AFIB with RVR until [...] Impairment (Lower Extremity Amputation) Goal: Optimal Mobility Slope and Safety Outcome: Ongoing (Interventions Implemented as [...] Appropriate) * Consult Note - Graeme Younger [facility] - 04/22/2024 1:43 PM EDT Clinical Pharmacist Note-Vanc Gerson Bruner [id number] Gerson Bruner is a 58 y.o. [...] have. Alternately, during off-hours you may call [phone] to contact a pharmacist. Graeme Younger RPH Pager: [phone] * Consult Note - Sharri Sparks MD - 04/22/2024 12:23 PM EDT Images from the original note were not included. [facility] [place] [address] [place] [address] INPATIENT CARDIOLOGY CONSULT NOTE Hospital Day 2 days Reason for Consult: atrial fibrillation Active Problems: Active Hospital Problems Diagnosis Non healing left heel wound Resolved Hospital Problems No resolved problems to display. HPI: Gerson Bruner is a 58 y.o. male with a history of IDDM, ESRD, TIA, and severe vascular disease whopresents to [facility] with worsening of his right heel wound [...] diagnosed with it ~1 year ago at [facility]. Unfortunately due to medication reconciliation issues his [...] 15.37) performed by Kristi Renae MD at [facility] MAIN OR PRO AMPUTATION LOW LEG, CIRCULAR Left 02/18/2024 @AMPUTATION, BELOW-KNEE, OPEN, GUILLOTINE (WRVU 9.79) performed by Kristi Renae MD at [facility] MAIN OR PRO ANASTOMOSIS, AV, ANY SITE Left 09/05/2018 AV FISTULA CREATION, DIRECT HEMODIALYSIS, ANY SITE, EG GABRIEL FISTULA UPPER EXTREMITY (WRVU 11.9) performed by Scout Reese MD at [facility] MAIN OR PRO COLONOSCOPY, REMV LESN, SNARE N/A 09/26/2019 COLONOSCOPY, POLYPECTOMY, REMOVAL LESION BY SNARE (WRVU 4.67) performed by Kaye Gibbs MD at [facility] ENDOSCOPY VS ARTERIOGRAM LOWER EXTREMITY VASCULAR SURGERY 04/11/2024 VS Arteriogram Lower Extremity Vascular Surgery 04/11/2024 Kristi Renae MD [facility] INTERVENTIONL RAD Allergies Allergen Reactions Clindamycin Swelling. [...] Surgical Unit Level 4 Wing D at [facility] 86.2 kg (190 lb) 1 04/20/2024 [...] - Limited exam. No deficits. Recent Labs 04/22/24 0436 04/21/24 1624 04/20/24 2332 WBC 15.0* 19.8* 17.1* HGB 8.5* 9.4* 8.9* HCT 28.6* 29.8* 28.8* PLATELET 328 348 340 Recent Labs 04/22/24 0436 04/21/24 1624 04/20/24 2332 NA 138 137 132* K 5.3* 4.6 5.1* CL 99 97* 95* CO2 22 21* 23 BUN 39* 32* 42* CREATININE 6.97* 5.70* 7.05* Recent Labs 04/20/24 1709 AST 16 ALT 16 ALKPHOS 210* BILITOT <0.2* Recent Labs 04/22/24 0436 04/21/24 1624 04/20/24 2332 04/20/24 2217 CALCIUM 8.4* [...] TIA, and severe vascular disease [facility] due to Right heel infection s/p [...] Dr. Anderson, attending physician. Sharri Sparks MD Wet Suit Gluer Associated attestation - Rhea Anderson MD - [...] Impairment (Lower Extremity Amputation) Goal: Optimal Mobility Slope and Safety Outcome: Ongoing (Interventions Implemented as [...] 93 % STUDIES: Labs: CBC: Recent Labs 04/21/24 1624 04/20/24 2332 04/20/24 1939 WBC 19.8* 17.1* 17.0* HGB 9.4* 8.9* 8.3* PLATELET 348 340 347 Chemistry: Recent Labs 04/21/24 1624 04/20/24 2332 04/20/24 2217 NA 137 132* 132* K 4.6 5.1* Not Perf CL 97* 95* 97* CO2 21* 23 21* BUN 32* 42* 41* CREATININE 5.70* 7.05* 6.58* GLUCOSE 142 185 195 Recent Labs 04/21/24 1624 04/20/24 2332 04/20/24 2217 04/20/24 1709 03/14/24 0349 03/13/24 0633 03/13/24 0330 CALCIUM 8.8 8.7 8.5 < > 9.2 < > 9.7 MAGNESIUM 0.82 -- 0.83 -- -- -- 0.82 PHOS 4.7* -- 5.8* -- 5.6* < > Not Perf < > = values in this interval not displayed. LFT's: Recent Labs 04/20/24 1709 03/14/24 0349 03/13/24 0633 03/13/24 0330 BILITOT <0.2* <0.2* <0.2* <0.2* BILIDIR -- -- -- 0.1 ALBUMIN 3.2 3.0* 3.3 3.1* ALKPHOS 210* 139* 181* 165* ALT 16 17 22 19 AST 16 14 15 12 Dariana Albarado APRN Section of Nephrology Pager [phone] Associated attestation - Jordan Sepulveda MD - [...] RN - 04/21/2024 5:15 PM EDTSummary: [facility] HD; [facility] restart referrals Office of Care Management Initial Assessment Lopez Herrera RN reviewed record and discussed patient with Care Team. Source of Information: Chart Review (Patient is in the OR. Unable to reach spouse/DPOAH Melissa Tang marianna [phone]. Information gathered [facility] 03/14/24 RNCM Initial Assessment.) Admitted From: Home Reason for Hospitalization: 58 y.o. 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 His BKA [...] DPOA-HC?: Spouse (DPOA1 is spouse Melissa Bruner [phone]; DPOA2 is daughter Lata Bruner [phone]) Current Coping/Education/Information Needs: Needs assessment Current Functional [...] homeless or living in a mcfp (including now)?: No In the past 12 months has the electric, gas, oil, or water company threatened [...] (Off-loading boot) Home Address listed as: [address] [address] Social & Family Supports: Extended Emergency Contact Information Primary Emergency Contact: Melissa Bruner Address: [address] [place] [address] [facility] [place] Relation: Spouse Current Care Provided by: self, spouse/significant other Provides Primary Care For: no one Caregiver if needed: spouse Quality of Family relationships: helpful, involved Community Resources being provided currently: clinic(s), homecare agency, outpatient hemodialysis (Receives primary care at [facility] current [facility] client; current [facility] hemodialysis M/W/ 0600 client) Behavioral Health History: Anxiety, depression [...] to assess Prescription Coverage: Yes Preferred Pharmacy: [id number] - [place], [place] - [address] [facility] [address] [facility] [address] [place], [place] - [address] [facility] [address] [facility] [address] Status: Patient is a : No Primary Care Provider listed: Ken Greer MD [phone] Patient/Caregiver Goals of Treatment: Wound care Potential Needs for Transition of Care: home health care Agency Referrals: [facility] [address] [place] [address] P: [phone] F: [phone] [facility] [address] [place] [address] Transportation: no concerns Transportation Anticipated: family or friend will provide (Spouse Melissa [phone]) Concerns to be Addressed: discharge planning Assessment: Patient is admitted to Vascular Surgery service for non healing left heel wound. Plan going forward: Care Management team will continue to follow and assist with discharge planing and coordination of care as indicated. * Op Note - Nestor Pool MD - 04/21/2024 4:59 PM EDT [facility] Operative Note Patient Name: Gerson Bruner : [id number] MR#: [id number] Case Date: 04/21/2024 Surgeon: Surgeons and Role: [...] with hemostats and ligated using 3-0 silk vovqto-ch-tswna sutures. Additional hemostasis was obtained with Bovie [...] 04/24/2024 * Plan of Care - Hudson Rojo RN - 04/21/2024 10:53 AM EDT Problem: [...] to bed. A&Ox3-4, occasionally disoriented to time. COCOPAH. 2L NC. Pt reporting 06/03 pain to the RLE, denies need for scheduledTylenol. MD notified and at the bedside to assess, [...] PM EDT Amputation Low Leg, Second Closure (63266) Yes 04/25/2024 3:55 PM EDT infected right [...] ASPIRATE CULTURE STAT 04/21/2024 5:07 PM EDT HEMOGRAM STAT 04/21/2024 4:24 PM EDT PHOSPHORUS [...] (ABNORMAL) POCT Glucose (04/29/2024 11:53 AM EDT) Glucose, POC 234(H) 65 - 199 mg/dL [facility] Comment: Supplemental ranges: <140 mg/dL before meals <180 mg/dL all other times of the day Blood 04/29/2024 11:5 3 AM EDT 04/29/2024 11:53 AM EDT Kristi Renae MD POINT OF CARE TEST O CARMELITA Performing Organization Address [facility] Co de Phone Number [facility] [place] [address] * POCT Glucose (04/29/2024 7:58 AM EDT) Glucose, POC 190 65 - 199 mg/dL [facility] Comment: Supplemental ranges: <140 mg/dL before meals <180 mg/dL all other times of the day Blood 04/29/2024 7:58 AM EDT 04/29/2024 7:58 AM EDT Kristi Renae MD POINT OF CARE TEST O CARMELITA [facility] [place] [address] * (ABNORMAL) Differential, Automated (04/29/2024 6:20 AM EDT) Neutrophil % 53.9 % [facility] Neutrophil Absolute 4.67 1.70 - 6.10 x10(3)/[facility] Lymph % 27.5 % [facility] Lymphocytes Abs 2.4 0.9 - 3.2 x10(3)/[facility] Monocyte % 12.9 % [facility] Monocyte Abs 1.1(H) 0.3 - 0.9 x10(3)/[facility] Eos % 4.4 % [facility] Eosinophils Abs 0.4 0.0 - 0.4 x10(3)/[facility] Basophil % 0.8 % [facility] Baso Absolute 0.1 0.0 - 0.1 x10(3)/[facility] Immature Gran % 0.50 % [facility] Comment: Immature granulocytes(IG's)percentage and absolute count will include metamyelocytes, myelocytes, and promyelocytes. Blood smears from CBCs yielding IG's will be scanned manually for concordance. If this scan disagrees with the automated IG or if promyelocytes are noted, a manual differential will be performed. Immature Gran Absolute 0.04 0.00 - 0.04 x10(3)/[facility] Blood 04/29/2024 6:20 AM EDT 04/29/2024 6:43 AM EDT Narrative Resulting Agency Comment Spec In Lab Russell Cohen MD HEMATOLOGY ORDER FRANSISCO [facility] [place] [address] * (ABNORMAL) Hemogram (04/29/2024 6:20 AM EDT) White Blood Cell 8.7 4.0 - 9.5 x10(3)/[facility] Red Blood Cell 3.09(L) 4.58 - 5.54 x10(6)/[facility] Hemoglobin 8.8(L) 13.7 - 16.5 g/dL [facility] Hematocrit 28.5(L) 40.5 - 48.5 % [facility] Mean Cell Volume 92.2 82.9 - 93.1 [facility] Mean Cell Hemoglobin 28.5 27.5 - 32.1 pg [facility] Mean Cell Hemoglobin Concentration 30.9(L) 32.0 - 35.7 g/dL [facility] Platelet 438(H) 145 - 357 x10(3)/[facility] RDW Standard Deviation 56.5(H) 36.0 - 45.0 [facility] RDW coefficient of variation 17.0(H) 11.4 - 13.8 % [facility] Mean Platelet Volume 11.1 7.6 - 12.9 [facility] NRBC% auto 0.0 % [facility] NRBC Absolute 0.000 0.000 - 0.000 x10(3)/[facility] Blood 04/29/2024 6:20 AM EDT 04/29/2024 6:43 AM EDT Narrative Resulting Agency Comment Spec In Lab Russell Cohen MD HEMATOLOGY ORDER FRANSISCO [facility] [place] [address] * (ABNORMAL) Basic Metabolic Panel (non-fasting) (04/29/2024 6:20 AM EDT) Glucose 235(H) 65 - 199 mg/dL [facility] Comment:Diabetes: >=200 mg/d L plus symptoms Blood Urea Nitrogen 33(H) 10 - 20 mg/dL [facility] Creatinine 6.41(H) 0.80 - 1.50 mg/dL [facility] Comment:result rechecked-tmp Sodium 138 135 - 145 mmol/L [facility] Potassium 5.3(H) 3.5 - 5.0 mmol/L [facility] Comment: Please note: ??Patients with WBC >100,000 may have falsely elevated Potassium levels. ??For accurate Potassium quantification in these patients send serum separator tube (gold top) for subsequent determinations. ??Contact the Clinical Chemistry Laboratory if there are any questions. Chloride 100 98 - 107 mmol/L [facility] Carbon Dioxide 24 22 - 31 mmol/L [facility] Anion Gap 14 5 - 15 mmol/L [facility] Calcium 9.4 8.5 - 10.5 mg/dL [facility] Est Glomerular Filtration Rate 9(L) >=60 mL/min/1. 73 m?? [facility] Comment: This patient's estimated [...] In Lab Kristi Renae MD CHEMISTRY ORDERABLES [facility] [place] [address] * (ABNORMAL) Phosphorus (04/29/2024 6:20 AM EDT) Phosphorus 6.2(H) 2.5 - 4.5 mg/dL [facility] Blood 04/29/2024 6:20 AM EDT 04/29/2024 6:43 AM EDT Narrative Resulting Agency Comment Spec In Lab Kristi Renae MD CHEMISTRY ORDERABLES Performing Organization Address [facility] Co de Phone Number [facility] [place] [address] * Magnesium (04/29/2024 6:20 AM EDT) Magnesium 0.90 0.69 - 1.07 mmol/L [facility] Blood 04/29/2024 6:20 AM EDT 04/29/2024 6:43 AM EDT Narrative Resulting Agency Comment Spec In Lab Kristi Renae MD CHEMISTRY ORDERABLES Performing Organization Address [facility] de Phone Number [facility] [place] [address] * (ABNORMAL) POCT Glucose (04/29/2024 5:23 AM EDT) Glucose, POC 247(H) 65 - 199 mg/dL [facility] Comment: Supplemental ranges: <140 mg/dL before meals <180 mg/dL all other times of the day Blood 04/29/2024 5:23 AM EDT 04/29/2024 5:23 AM EDT Kristi Renae MD POINT OF CARE TEST O RDERABLES Performing Organization Address [facility] Co de Phone Number [facility] [place] [address] * (ABNORMAL) POCT Glucose (04/28/2024 10:57 PM EDT) Glucose, POC 206(H) 65 - 199 mg/dL [facility] Comment: Supplemental ranges: <140 mg/dL before meals <180 mg/dL all other times of the day Blood 04/28/2024 10:5 7 PM EDT 04/28/2024 10:57 PM EDT Kristi Renae MD POINT OF CARE TEST O CARMELITA Performing Organization Address City/[facility]/ZIP Co de Phone Number [facility] [place] [address] * POCT Glucose (04/28/2024 8:28 PM EDT) Glucose, POC 155 65 - 199 mg/dL [facility] Comment: Supplemental ranges: <140 mg/dL before meals <180 mg/dL all other times of the day Blood 04/28/2024 8:28 PM EDT 04/28/2024 8:28 PM EDT Kristi Renae MD POINT OF CARE TEST O CARMELITA Performing Organization Address [facility] Co de Phone Number [facility] [place] [address] * (ABNORMAL) POCT Glucose (04/28/2024 3:54 PM EDT) Glucose, POC 211(H) 65 - 199 mg/dL [facility] Comment: Supplemental ranges: <140 mg/dL before meals <180 mg/dL all other times of the day Blood 04/28/2024 3:54 PM EDT 04/28/2024 3:54 PM EDT Kristi Renae MD POINT OF CARE TEST O CARMELITA [facility] [place] [address] * POCT Glucose (04/28/2024 11:32 AM EDT) Glucose, POC 193 65 - 199 mg/dL [facility] Comment: Supplemental ranges: <140 mg/dL before meals <180 mg/dL all other times of the day Blood 04/28/2024 11:3 2 AM EDT 04/28/2024 11:32 AM EDT Kristi Renae MD POINT OF CARE TEST O RDERABLES Performing Organization Address [facility]/ZIP Co de Phone Number [facility] [place] [address] * POCT Glucose (04/28/2024 10:04 AM EDT) Glucose, POC 196 65 - 199 mg/dL [facility] Comment: Supplemental ranges: <140 mg/dL before meals <180 mg/dL all other times of the day Blood 04/28/2024 10:0 4 AM EDT 04/28/2024 10:04 AM EDT Kristi Renae MD POINT OF CARE TEST O RDERAKEREN Performing Organization Address [facility] Co de Phone Number [facility] [place] [address] * (ABNORMAL) POCT Glucose (04/28/2024 8:02 AM EDT) Glucose, POC 294(H) 65 - 199 mg/dL [facility] Comment: Supplemental ranges: <140 mg/dL before meals <180 mg/dL all other times of the day Blood 04/28/2024 8:02 AM EDT 04/28/2024 8:02 AM EDT Kristi Renae MD POINT OF CARE TEST O RDERABLES Performing Organization Address City/[facility]/ZIP Co de Phone Number [facility] [place] [address] * Differential, Automated (04/28/2024 5:48 AM EDT) Neutrophil % 63.2 % [facility] Neutrophil Absolute 5.80 1.70 - 6.10 x10(3)/[facility] Lymph % 21.0 % [facility] Lymphocytes Abs 1.9 0.9 - 3.2 x10(3)/[facility] Monocyte % 10.1 % [facility] Monocyte Abs 0.9 0.3 - 0.9 x10(3)/[facility] Eos % 4.5 % [facility] Eosinophils Abs 0.4 0.0 - 0.4 x10(3)/[facility] Basophil % 0.8 % [facility] Baso Absolute 0.1 0.0 - 0.1 x10(3)/[facility] Immature Gran % 0.40 % [facility] Comment: Immature granulocytes(IG's)percentage and absolute count will include metamyelocytes, myelocytes, and promyelocytes. Blood smears from CBCs yielding IG's will be scanned manually for concordance. If this scan disagrees with the automated IG or if promyelocytes are noted, a manual differential will be performed. Immature Gran Absolute 0.04 0.00 - 0.04 x10(3)/[facility] Blood 04/28/2024 5:48 AM EDT 04/28/2024 5:53 AM EDT Narrative Resulting Agency Comment Spec In Lab Russell Cohen MD HEMATOLOGY ORDER FRANSISCO [facility] [place] [address] * (ABNORMAL) Hemogram (04/28/2024 5:48 AM EDT) White Blood Cell 9.2 4.0 - 9.5 x10(3)/mc L [facility] Red Blood Cell 3.16(L) 4.58 - 5.54 x10(6)/mc L [facility] Hemoglobin 8.6(L) 13.7 - 16.5 g/dL [facility] Hematocrit 28.8(L) 40.5 - 48.5 % [facility] Mean Cell Volume 91.1 82.9 - 93.1 fL [facility] Mean Cell Hemoglobin 27.2(L) 27.5 - 32.1 pg [facility] Mean Cell Hemoglobin Concentration 29.9(L) 32.0 - 35.7 g/dL [facility] Platelet 458(H) 145 - 357 x10(3)/mc L [facility] RDW Standard Deviation 56.3(H) 36.0 - 45.0 fL [facility] RDW coefficient of variation 17.1(H) 11.4 - 13.8 % [facility] Mean Platelet Volume 10.9 7.6 - 12.9 fL [facility] NRBC% auto 0.0 % [facility] NRBC Absolute 0.000 0.000 - 0.000 x10(3)/mc L [facility] Blood 04/28/2024 5:48 AM EDT 04/28/2024 5:53 AM EDT Narrative Resulting Agency Comment Spec In Lab Russell Cohen MD HEMATOLOGY ORDER FRANSISCO [facility] [place] [address] * (ABNORMAL) Basic Metabolic Panel (non-fasting) (04/28/2024 5:48 AM EDT) Glucose 251(H) 65 - 199 mg/dL [facility] Comment:Diabetes: >=200 mg/d L plus symptoms Blood Urea Nitrogen 46(H) 10 - 20 mg/dL [facility] Creatinine 8.27(H) 0.80 - 1.50 mg/dL [facility] Comment:result rechecked-KS Sodium 136 135 - 145 mmol/L [facility] Potassium 5.6(H) 3.5 - 5.0 mmol/L [facility] Comment: Please note: ??Patients with WBC >100,000 may have falsely elevated Potassium levels. ??For accurate Potassium quantification in these patients send serum separator tube (gold top) for subsequent determinations. ??Contact the Clinical Chemistry Laboratory if there are any questions. Chloride 97(L) 98 - 107 mmol/L [facility] Carbon Dioxide 22 22 - 31 mmol/L [facility] Anion Gap 17(H) 5 - 15 mmol/L [facility] Calcium 9.4 8.5 - 10.5 mg/dL [facility] Est Glomerular Filtration Rate 7(L) >=60 mL/min/1. 73 m?? [facility] Comment: This patient's estimated [...] Renae MD CHEMISTRY ORDERABLES Performing Organization Address [facility]/ZIP Co de Phone Number [facility] [place] [address] * (ABNORMAL) Phosphorus (04/28/2024 5:48 AM EDT) Phosphorus 8.3(H) 2.5 - 4.5 mg/dL [facility] Blood 04/28/2024 5:48 AM EDT 04/28/2024 5:53 AM EDT Narrative Resulting Agency Comment Spec In Lab Kristi Renae MD CHEMISTRY ORDERABLES Performing Organization Address City/[facility]/ZIP Co de Phone Number [facility] [place] [address] * Magnesium (04/28/2024 5:48 AM EDT) Magnesium 0.89 0.69 - 1.07 mmol/L [facility] Blood 04/28/2024 5:48 AM EDT 04/28/2024 5:53 AM EDT Narrative Resulting Agency Comment Spec In Lab Kristi Renae MD CHEMISTRY ORDERABLES Performing Organization Address City/[facility]/ZIP Co de Phone Number [facility] [place] [address] * (ABNORMAL) POCT Glucose (04/27/2024 11:30 PM EDT) Glucose, POC 207(H) 65 - 199 mg/dL [facility] Comment: Supplemental ranges: <140 mg/dL before meals <180 mg/dL all other times of the day Blood 04/27/2024 11:3 0 PM EDT 04/27/2024 11:30 PM EDT Kristi Renae MD POINT OF CARE TEST O RDERABLES Performing Organization Address [facility] Co de Phone Number [facility] [place] [address] * POCT Glucose (04/27/2024 8:12 PM EDT) Glucose, POC 198 65 - 199 mg/dL [facility] Comment: Supplemental ranges: <140 mg/dL before meals <180 mg/dL all other times of the day Blood 04/27/2024 8:12 PM EDT 04/27/2024 8:12 PM EDT Kristi Renae MD POINT OF CARE TEST O RDERABLES Performing Organization Address [facility] Co de Phone Number [facility] [place] [address] * (ABNORMAL) POCT Glucose (04/27/2024 4:56 PM EDT) Glucose, POC 226(H) 65 - 199 mg/dL [facility] Comment: Supplemental ranges: <140 mg/dL before meals <180 mg/dL all other times of the day Blood 04/27/2024 4:56 PM EDT 04/27/2024 4:56 PM EDT Kristi Renae MD POINT OF CARE TEST O RDERAKEREN Performing Organization Address City/[facility] Co de Phone Number [facility] [place] [address] * POCT Glucose (04/27/2024 12:13 PM EDT) Glucose, POC 195 65 - 199 mg/dL [facility] Comment: Supplemental ranges: <140 mg/dL before meals <180 mg/dL all other times of the day Blood 04/27/2024 12:1 3 PM EDT 04/27/2024 12:13 PM EDT Kristi Renae MD POINT OF CARE TEST O CARMELITA Performing Organization Address [facility] Co de Phone Number [facility] [place] [address] * POCT Glucose (04/27/2024 6:44 AM EDT) Glucose, POC 109 65 - 199 mg/dL [facility] Comment: Supplemental ranges: <140 mg/dL before meals <180 mg/dL all other times of the day Blood 04/27/2024 6:44 AM EDT 04/27/2024 6:44 AM EDT Kristi Renae MD POINT OF CARE TEST O RDERAKEREN Performing Organization Address [facility] Co de Phone Number [facility] [place] [address] * (ABNORMAL) Differential, Automated (04/27/2024 5:47 AM EDT) Neutrophil % 63.6 % [facility] Neutrophil Absolute 6.72(H) 1.70 - 6.10 x10(3)/ L [facility] Lymph % 19.0 % [facility] Lymphocytes Abs 2.0 0.9 - 3.2 x10(3)/ L [facility] Monocyte % 12.5 % [facility] Monocyte Abs 1.3(H) 0.3 - 0.9 x10(3)/ L [facility] Eos % 3.8 % [facility] Eosinophils Abs 0.4 0.0 - 0.4 x10(3)/[facility] Basophil % 0.6 % [facility] Baso Absolute 0.1 0.0 - 0.1 x10(3)/[facility] Immature Gran % 0.50 % [facility] Comment: Immature granulocytes(IG's)percentage and absolute count will include metamyelocytes, myelocytes, and promyelocytes. Blood smears from CBCs yielding IG's will be scanned manually for concordance. If this scan disagrees with the automated IG or if promyelocytes are noted, a manual differential will be performed. Immature Gran Absolute 0.05(H) 0.00 - 0.04 x10(3)/[facility] Blood 04/27/2024 5:47 AM EDT 04/27/2024 6:03 AM EDT Narrative Resulting Agency Comment Spec In Lab Russell Cohen MD HEMATOLOGY ORDER FRANSISCO [facility] [place] [address] * (ABNORMAL) Hemogram (04/27/2024 5:47 AM EDT) White Blood Cell 10.6(H) 4.0 - 9.5 x10(3)/[facility] Red Blood Cell 2.89(L) 4.58 - 5.54 x10(6)/mc L [facility] Hemoglobin 7.9(L) 13.7 - 16.5 g/dL [facility] Hematocrit 26.2(L) 40.5 - 48.5 % [facility] Mean Cell Volume 90.7 82.9 - 93.1 fL [facility] Mean Cell Hemoglobin 27.3(L) 27.5 - 32.1 pg [facility] Mean Cell Hemoglobin Concentration 30.2(L) 32.0 - 35.7 g/dL [facility] Platelet 360(H) 145 - 357 x10(3)/mc L [facility] RDW Standard Deviation 55.3(H) 36.0 - 45.0 fL [facility] RDW coefficient of variation 16.9(H) 11.4 - 13.8 % [facility] Mean Platelet Volume 11.1 7.6 - 12.9 [facility] NRBC% auto 0.0 % [facility] NRBC Absolute 0.000 0.000 - 0.000 x10(3)/ L [facility] Blood 04/27/2024 5:47 AM EDT 04/27/2024 6:03 AM EDT Narrative Resulting Agency Comment Spec In Lab Russell Cohen MD HEMATOLOGY ORDER FRANSISCO [facility] [place] [address] * (ABNORMAL) Basic Metabolic Panel (non-fasting) (04/27/2024 5:47 AM EDT) Glucose 109 65 - 199 mg/dL [facility] Comment:Diabetes: >=200 mg/d L plus symptoms Blood Urea Nitrogen 42(H) 10 - 20 mg/dL [facility] Creatinine 6.62(H) 0.80 - 1.50 mg/dL [facility] Comment:result rechecked-HN Sodium 139 135 - 145 mmol/L [facility] Potassium 4.9 3.5 - 5.0 mmol/L [facility] Comment: Please note: ??Patients with WBC >100,000 may have falsely elevated Potassium levels. ??For accurate Potassium quantification in these patients send serum separator tube (gold top) for subsequent determinations. ??Contact the Clinical Chemistry Laboratory if there are any questions. Chloride 100 98 - 107 mmol/L [facility] Carbon Dioxide 26 22 - 31 mmol/L [facility] Anion Gap 13 5 - 15 mmol/L [facility] Calcium 9.0 8.5 - 10.5 mg/dL [facility] Est Glomerular Filtration Rate 9(L) >=60 mL/min/1. 73 m?? [facility] Comment: This patient's estimated [...] In Lab Kristi Renae MD CHEMISTRY ORDERABLES [facility] [place] [address] * (ABNORMAL) Phosphorus (04/27/2024 5:47 AM EDT) Phosphorus 6.8(H) 2.5 - 4.5 mg/dL [facility] Blood 04/27/2024 5:47 AM EDT 04/27/2024 6:03 AM EDT Narrative Resulting Agency Comment Spec In Lab Kristi Renae MD CHEMISTRY ORDERABLES Performing Organization Address [facility] Co de Phone Number [facility] [place] [address] * Magnesium (04/27/2024 5:47 AM EDT) Magnesium 0.83 0.69 - 1.07 mmol/L [facility] Blood 04/27/2024 5:47 AM EDT 04/27/2024 6:03 AM EDT Narrative Resulting Agency Comment Spec In Lab Kristi Renae MD CHEMISTRY ORDERABLES Performing Organization Address [facility] Co de Phone Number [facility] [place] [address] * POCT Glucose (04/27/2024 3:59 AM EDT) Glucose, POC 78 65 - 199 mg/dL [facility] Comment: Supplemental ranges: <140 mg/dL before meals <180 mg/dL all other times of the day Blood 04/27/2024 3:59 AM EDT 04/27/2024 3:59 AM EDT Kristi Renae MD POINT OF CARE TEST O RDERABLES Performing Organization Address [place]/[facility] Co de Phone Number [facility] [place] [address] * POCT Glucose (04/26/2024 11:32 PM EDT) Glucose, POC 102 65 - 199 mg/dL [facility] Comment: Supplemental ranges: <140 mg/dL before meals <180 mg/dL all other times of the day Blood 04/26/2024 11:3 2 PM EDT 04/26/2024 11:32 PM EDT Kristi Renae MD POINT OF CARE TEST O RDERAKEREN Performing Organization Address City/[facility]/ZIP Co de Phone Number [facility] [place] [address] * POCT Glucose (04/26/2024 8:28 PM EDT) Glucose, POC 121 65 - 199 mg/dL [facility] Comment: Supplemental ranges: <140 mg/dL before meals <180 mg/dL all other times of the day Blood 04/26/2024 8:28 PM EDT 04/26/2024 8:28 PM EDT Kristi Renae MD POINT OF CARE TEST O RDERAKEREN Performing Organization Address [facility]/ZIP Co de Phone Number [facility] [place] [address] * POCT Glucose (04/26/2024 5:09 PM EDT) Glucose, POC 100 65 - 199 mg/dL [facility] Comment: Supplemental ranges: <140 mg/dL before meals <180 mg/dL all other times of the day Blood 04/26/2024 5:09 PM EDT 04/26/2024 5:09 PM EDT Kristi Renae MD POINT OF CARE TEST O CARMELITA Performing Organization Address City/[facility]/ZIP Co de Phone Number [facility] [place] [address] * POCT Glucose (04/26/2024 11:51 AM EDT) Glucose, POC 79 65 - 199 mg/dL [facility] Comment: Supplemental ranges: <140 mg/dL before meals <180 mg/dL all other times of the day Blood 04/26/2024 11:5 1 AM EDT 04/26/2024 11:51 AM EDT Kristi Renae MD POINT OF CARE TEST O RDERAKEREN [facility] [place] [address] * POCT Glucose (04/26/2024 7:30 AM EDT) Pathologist [facility] Glucose, POC 118 65 - 199 mg/dL [facility] Comment: Supplemental ranges: <140 mg/dL before meals <180 mg/dL all other times of the day Blood 04/26/2024 7:30 AM EDT 04/26/2024 7:30 AM EDT Kristi Renae MD POINT OF C[place] [address] * (ABNORMAL) Differential, Automated (04/26/2024 4:58 AM EDT) [facility] Neutrophil % 73.1 % [facility] Neutrophil Absolute 9.61(H) 1.70 - 6.10 x10(3)/mc L [facility] Lymph % 12.4 % [facility] Lymphocytes Abs 1.6 0.9 - 3.2 x10(3)/mc L [facility] Monocyte % 10.0 % [facility] Monocyte Abs 1.3(H) 0.3 - 0.9 x10(3)/mc L [facility] Eos % 3.7 % [facility] Eosinophils Abs 0.5(H) 0.0 - 0.4 x10(3)/mc L [facility] Basophil % 0.4 % [facility] Baso Absolute 0.0 0.0 - 0.1 x10(3)/mc L [facility] Immature Gran % 0.40 % [facility] Comment: Immature granulocytes(IG's)percentage and absolute count will include metamyelocytes, myelocytes, and promyelocytes. Blood smears from CBCs yielding IG's will be scanned manually for concordance. If this scan disagrees with the automated IG or if promyelocytes are noted, a manual differential will be performed. Immature Gran Absolute 0.05(H) 0.00 - 0.04 x10(3)/ L [facility] Blood 04/26/2024 4:58 AM EDT 04/26/2024 5:22 AM EDT Narrative Resulting Agency Comment Spec In Lab Russell Cohen MD HEMATOLOGY ORDER FRANSISCO [facility] [place] [address] * (ABNORMAL) Hemogram (04/26/2024 4:58 AM EDT) White Blood Cell 13.1(H) 4.0 - 9.5 x10(3)/ L [facility] Red Blood Cell 3.20(L) 4.58 - 5.54 x10(6)/[facility] LAB[facility]ORY Hemoglobin 8.9(L) 13.7 - 16.5 g/dL [facility] Hematocrit 29.1(L) 40.5 - 48.5 % [facility] Mean Cell Volume 90.9 82.9 - 93.1 fL [facility] Mean Cell Hemoglobin 27.8 27.5 - 32.1 pg [facility] Mean Cell Hemoglobin Concentration 30.6(L) 32.0 - 35.7 g/dL [facility] Platelet 429(H) 145 - 357 x10(3)/ L [facility] RDW Standard Deviation 55.0(H) 36.0 - 45.0 fL [facility] RDW coefficient of variation 16.8(H) 11.4 - 13.8 % [facility] Mean Platelet Volume 10.9 7.6 - 12.9 [facility] NRBC% auto 0.0 % [facility] NRBC Absolute 0.000 0.000 - 0.000 x10(3)/ L [facility] Blood 04/26/2024 4:58 AM EDT 04/26/2024 5:22 AM EDT Narrative Resulting Agency Comment Spec In Lab Russell Cohen MD HEMATOLOGY ORDER FRANSISCO [facility] [place] [address] * (ABNORMAL) Basic Metabolic Panel (non-fasting) (04/26/2024 4:58 AM EDT) Glucose 109 65 - 199 mg/dL [facility] Comment:Diabetes: >=200 mg/d L plus symptoms Blood Urea Nitrogen 57(H) 10 - 20 mg/dL [facility] Creatinine 8.00(H) 0.80 - 1.50 mg/dL [facility] Comment:result rechecked-mg Sodium 139 135 - 145 mmol/L [facility] Potassium 5.5(H) 3.5 - 5.0 mmol/L [facility] Comment: Please note: ??Patients with WBC >100,000 may have falsely elevated Potassium levels. ??For accurate Potassium quantification in these patients send serum separator tube (gold top) for subsequent determinations. ??Contact the Clinical Chemistry Laboratory if there are any questions. Chloride 97(L) 98 - 107 mmol/L [facility] Carbon Dioxide 23 22 - 31 mmol/L [facility] Anion Gap 19(H) 5 - 15 mmol/L [facility] Calcium 8.5 8.5 - 10.5 mg/dL [facility] Est Glomerular Filtration Rate 7(L) >=60 mL/min/1. 73 m?? [facility] Comment: This patient's estimated [...] Renae MD CHEMISTRY ORDERABLES Performing Organization Address City/[facility]/ZIP Co de Phone Number [facility] [place] [address] * (ABNORMAL) Phosphorus (04/26/2024 4:58 AM EDT) Phosphorus 7.4(H) 2.5 - 4.5 mg/dL [facility] Blood 04/26/2024 4:58 AM EDT 04/26/2024 5:24 AM EDT Narrative Resulting Agency Comment Spec In Lab Kristi Renae MD CHEMISTRY ORDERABLES Performing Organization Address [facility] Co de Phone Number [facility] [place] [address] * Magnesium (04/26/2024 4:58 AM EDT) Magnesium 0.83 0.69 - 1.07 mmol/L [facility] Blood 04/26/2024 4:58 AM EDT 04/26/2024 5:24 AM EDT Narrative Resulting Agency Comment Spec In Lab Kristi Renae MD CHEMISTRY ORDERABLES Performing Organization Address [facility] Co de Phone Number [facility] [place] [address] * Vancomycin Level, Random (04/26/2024 4:58 AM EDT) Vancomycin, Random 19.4 mg/L [facility] Comment: This level is for determination of the patient's vancomycin ropz-yujyg-vqs-curve (AUC) value. Contact the inpatient pharmacy for interpretation. Blood 04/26/2024 4:58 AM EDT 04/26/2024 5:24 AM EDT Kristi Renae MD CHEMISTRY ORDERABLES [facility] [place] [address] * POCT Glucose (04/26/2024 4:24 AM EDT) Glucose, POC 112 65 - 199 mg/dL [facility] Comment: Supplemental ranges: <140 mg/dL before meals <180 mg/dL all other times of the day Blood 04/26/2024 4:24 AM EDT 04/26/2024 4:24 AM EDT Kristi Renae MD POINT OF CARE TEST O RDERABLES Performing Organization Address [facility]/ZIP Co de Phone Number [facility] [place] [address] * POCT Glucose (04/25/2024 11:33 PM EDT) Glucose, POC 154 65 - 199 mg/dL [facility] Comment: Supplemental ranges: <140 mg/dL before meals <180 mg/dL all other times of the day Blood 04/25/2024 11:3 3 PM EDT 04/25/2024 11:33 PM EDT Kristi Renae MD POINT OF CARE TEST O CARMELITA [facility] [place] [address] * POCT Glucose (04/25/2024 6:53 PM EDT) Glucose, POC 73 65 - 199 mg/dL [facility] Comment: Supplemental ranges: <140 mg/dL before meals <180 mg/dL all other times of the day Blood 04/25/2024 6:53 PM EDT 04/25/2024 6:53 PM EDT Kristi Renae MD POINT OF CARE TEST O RDERABLES [facility] [place] [address] * POCT Glucose (04/25/2024 6:10 PM EDT) Glucose, POC 68 65 - 199 mg/dL [facility] Comment: Supplemental ranges: <140 mg/dL before meals <180 mg/dL all other times of the day Blood 04/25/2024 6:10 PM EDT 04/25/2024 6:10 PM EDT Kristi Renae MD POINT OF CARE TEST O RDERAKEREN Performing Organization Address [facility]/ZIP Co de Phone Number [facility] [place] [address] * (ABNORMAL) POCT Glucose (04/25/2024 5:46 PM EDT) Glucose, POC 57(L) 65 - 199 mg/dL [facility] Comment: Supplemental ranges: <140 mg/dL before meals <180 mg/dL all other times of the day Blood 04/25/2024 5:46 PM EDT 04/25/2024 5:46 PM EDT Kristi Renae MD POINT OF CARE TEST O RDERAKEREN Performing Organization Address City/[facility]/ZIP Co de Phone Number [facility] [place] [address] * Specimen to Pathology (04/25/2024 5:02 PM EDT) AP Specimen 04/25/2024 5:02 PM EDT 04/25/2024 5:02 PM EDT Narrative [facility] - 04/25/2024 5:02 PM EDT Specimen requisition ordered. ??Separate Pathology report to follow Janet Carrington MD PATHOLOGY/CYTOLOGY O CARMELITA [facility] [place] [address] * Surgical Pathology Report (04/25/2024 5:01 PM EDT) Final Diagnosis [id number] ? Location: L4WD; 0420; A The signing [...] Govea Verified: ??05/01/2024 14:48 ??Pathologist Performed at: ??-[facility] Dept[facility] of [place], [place] [address] Retail Loss Prevention Investigator: Karina Valencia MD, FCAP, ??CLIA Certificate: [id number] SPECIMEN(S) SUBMITTED A - Right leg CLINICAL INFORMATION Infected right heel. SPECIMEN PROCESSING A - Labeled/Fixative: ?? Right lower leg, fresh. Quantity/Size: Single 20.3 x 13.3 cm. Tissue Description: Right, below the knee amputation revision. Margin: Viable. Skin: Intact, dry, white. Lesions: No lesions identified. Prior resection site: [place] granulation tissue overlying prior amputation site. Vessels: ??Posterior tibial artery: Diffuse atherosclerosis with up to 70% luminal stenosis. ??Anterior tibial artery: Atherosclerosis with up to 10% luminal stenosis. Sections/Processin g: Voice Teacher sections in 3 cassettes as follows: ?A1: ??Skin and underlying subcutis, and skeletal muscle en face sections taken at ? margin ?A2: ??Granulation tissue sectioned longitudinally from prior resection site ?A3: ??Posterior and anterior tibial artery bundles submitted in cross-section ??tbf, sns 05/01/2024 2:48 PM EDT [facility] Extremity 04/25/2024 5:01 PM EDT 04/25/2024 5:01 PM EDT Janet Carrington MD PATHOLOGY/CYTOLOGY O RDERABLES Performing Organization Address City/[facility]/ZIP Co de Phone Number [facility] [place] [address] * EKG 12 Lead (04/25/2024 12:38 PM EDT) Ventricular rate 61 BPM MUSE SYSTEM Atrial Rate 61 BPM MUSE SYSTEM P-R Interval 152 ms MUSE SYSTEM QRS Duration 82 ms MUSE SYSTEM Q-T Interval 448 ms MUSE SYSTEM QTC Calculated (Bezet) 450 ms MUSE SYSTEM Calculated P [place] 47 degrees MUSE SYSTEM Calculated R [place] 30 degrees MUSE SYSTEM Calculated T [place] 43 degrees MUSE SYSTEM INTERPRETATION Normal sinus rhythm Normal ECG When compared with ECG of 24-APR-2024 12:47, No significant change was found Confirmed by MD Juan, Sourav ([id number]) on 04/25/2024 2:21:13 PM MUSE SYSTEM 04/25/2024 12:3 8 PM EDT 04/25/2024 2:21 PM EDT Kristi Renae MD ECG ORDERABLES Performing Organization Address City/[facility]/ZIP Co de Phone Number MUSE SYSTEM * POCT Glucose (04/25/2024 11:36 AM EDT) Glucose, POC 154 65 - 199 mg/dL [facility] Comment: Supplemental ranges: <140 mg/dL before meals <180 mg/dL all other times of the day Blood 04/25/2024 11:3 6 AM EDT 04/25/2024 11:36 AM EDT Kristi Renae MD POINT OF CARE TEST O RDERABLES Performing Organization Address City/[facility]/ZIP Co de Phone Number [facility] [place] [address] * (ABNORMAL) Urinalysis Microscopic Exam (04/25/2024 9:32 AM EDT) RBC, Urine 2 0 - 3 /HPF [facility] WBC, Urine 4(H) 0 - 3 /HPF [facility] Bacteria, Urine Few(A) None /HPF [facility] Comment: Interpret results with caution, microscopic results are from suboptimal specimen volume Squamous Epithelial Cells Raw Data, Urine 3 <=4 /HPF [facility] Transitional Epithelial Cells, Urine <1 <=1 /HPF [facility] Comment: Interpret results with caution, microscopic results are from suboptimal specimen volume Hyaline Casts, Urine 2 0 - 2 /LPF [facility] Comment: Interpret results with caution, microscopic results are from suboptimal specimen volume Urine 04/25/2024 9:32 AM EDT 04/25/2024 9:55 AM EDT Narrative Resulting Agency Comment Spec In Lab Pau Burt APRN URINE ORDERABLES [facility] [place] [address] * (ABNORMAL) Urinalysis with reflex Culture (04/25/2024 9:32 AM EDT) Glucose, Urine Dipstick 250(A) Negative mg/dL [facility] Protein, Urine Dipstick >=300(A) Negative mg/dL [facility] Bilirubin, Urine Dipstick Negative Negative mg/dL [facility] Comment: Clinical correlation required for positive Urine Bilirubin results as false positive may occur with some drugs and drug related products. If a false positive is suspected a serum total bilirubin should be considered if clinically indicated. Urobilinogen, Urine Dipstick Normal Normal mg/dL [facility] pH, Urn (dipstick) 7.5 5.0 - 8.0 [facility] Blood, Urine Dipstick Negative Negative mg/dL [facility] Ketone, Urine Dipstick Negative Negative mg/dL [facility] Nitrite, Urine Dipstick Negative Negative [facility] Leukocytes, Urine Dipstick Negative Negative [facility] Appearance, Urine Dipstick Turbid(A) Clear [facility] Specific [place] Urine Automated 1.022 1.005 - 1.030 [facility] Color, Urine Dipstick Yellow Yellow [facility] Reflex to Culture No [facility] Urine 04/25/2024 9:32 AM EDT 04/25/2024 9:54 AM EDT Narrative Resulting Agency Comment Spec In Lab Pau Burt APRN URINE ORDERABLES Performing Organization Address City/State/[facility] Co de Phone Number [facility] [place] [address] * (ABNORMAL) Differential, Automated (04/25/2024 9:23 AM EDT) Neutrophil % 59.8 % [facility] Neutrophil Absolute 4.79 1.70 - 6.10 x10(3)/mc L [facility] Lymph % 20.8 % [facility] Lymphocytes Abs 1.7 0.9 - 3.2 x10(3)/mc L [facility] Monocyte % 11.9 % [facility] Monocyte Abs 1.0(H) 0.3 - 0.9 x10(3)/mc L [facility] Eos % 6.0 % [facility] Eosinophils Abs 0.5(H) 0.0 - 0.4 x10(3)/[facility] Basophil % 1.1 % [facility] Baso Absolute 0.1 0.0 - 0.1 x10(3)/[facility] Immature Gran % 0.40 % [facility] Comment: Immature granulocytes(IG's)percentage and absolute count will include metamyelocytes, myelocytes, and promyelocytes. Blood smears from CBCs yielding IG's will be scanned manually for concordance. If this scan disagrees with the automated IG or if promyelocytes are noted, a manual differential will be performed. Immature Gran Absolute 0.03 0.00 - 0.04 x10(3)/[facility] Blood 04/25/2024 9:23 AM EDT 04/25/2024 10:06 AM EDT Narrative Resulting Agency Comment Spec In Lab Munira Jorge MD HEMATOLOGY ORDERABLE S [facility] [place] [address] * (ABNORMAL) Hemogram (04/25/2024 9:23 AM EDT) White Blood Cell 8.0 4.0 - 9.5 x10(3)/[facility] Red Blood Cell 3.39(L) 4.58 - 5.54 x10(6)/[facility] Hemoglobin 9.2(L) 13.7 - 16.5 g/dL [facility] Hematocrit 31.8(L) 40.5 - 48.5 % [facility] Mean Cell Volume 93.8(H) 82.9 - 93.1 fL [facility] Mean Cell Hemoglobin 27.1(L) 27.5 - 32.1 pg [facility] Mean Cell Hemoglobin Concentration 28.9(L) 32.0 - 35.7 g/dL [facility] Platelet 391(H) 145 - 357 x10(3)/mc L [facility] RDW Standard Deviation 56.0(H) 36.0 - 45.0 fL [facility] RDW coefficient of variation 16.5(H) 11.4 - 13.8 % [facility] Mean Platelet Volume 11.4 7.6 - 12.9 fL [facility] NRBC% auto 0.0 % [facility] NRBC Absolute 0.000 0.000 - 0.000 x10(3)/mc L [facility] Blood 04/25/2024 9:23 AM EDT 04/25/2024 10:06 AM EDT Narrative Resulting Agency Comment Spec In Lab Munira Jorge MD HEMATOLOGY ORDERABLE S [facility] [place] [address] * (ABNORMAL) Basic Metabolic Panel (non-fasting) (04/25/2024 9:23 AM EDT) Glucose 182 65 - 199 mg/dL [facility] Comment:Diabetes: >=200 mg/d L plus symptoms Blood Urea Nitrogen 52(H) 10 - 20 mg/dL [facility] Creatinine 6.89(H) 0.80 - 1.50 mg/dL [facility] Sodium 140 135 - 145 mmol/L [facility] Potassium 5.5(H) 3.5 - 5.0 mmol/L [facility] Comment: Please note: ??Patients with WBC >100,000 may have falsely elevated Potassium levels. ??For accurate Potassium quantification in these patients send serum separator tube (gold top) for subsequent determinations. ??Contact the Clinical Chemistry Laboratory if there are any questions. Chloride 99 98 - 107 mmol/L [facility] Carbon Dioxide 23 22 - 31 mmol/L [facility] Anion Gap 18(H) 5 - 15 mmol/L [facility] Calcium 8.5 8.5 - 10.5 mg/dL [facility] Est Glomerular Filtration Rate 9(L) >=60 mL/min/1. 73 m?? [facility] Comment: This patient's estimated [...] In Lab Kristi Renae MD CHEMISTRY ORDERABLES [facility] [place] [address] * POCT Glucose (04/25/2024 7:56 AM EDT) Glucose, POC 144 65 - 199 mg/dL [facility] Comment: Supplemental ranges: <140 mg/dL before meals <180 mg/dL all other times of the day Blood 04/25/2024 7:56 AM EDT 04/25/2024 7:56 AM EDT Kristi Renae MD POINT OF CARE TEST O RDERABLES [facility] [place] [address] * Type and Screen Validity (04/25/2024 5:29 AM EDT) T&S only valid at [facility] Comment:This Type and Screen result is only valid at the [facility] Blood 04/25/2024 5:29 AM EDT 04/25/2024 5:54 AM EDT Narrative Resulting Agency Comment Spec In Lab Russell Cohen MD BLOOD BANK LAB O RDERABLES Performing Organization Address [facility]/ZIP Co de Phone Number [facility] [place] [address] * ABORH Recheck Status (04/25/2024 5:29 AM EDT) ABORH Type Recheck Completed [facility] Blood 04/25/2024 5:29 AM EDT 04/25/2024 5:54 AM EDT Narrative Resulting Agency Comment Spec In Lab Russell Cohen MD BLOOD BANK LAB O RDERABLES Performing Organization Address [facility] Co de Phone Number [facility] [place] [address] * (ABNORMAL) Phosphorus (04/25/2024 5:29 AM EDT) Phosphorus 6.9(H) 2.5 - 4.5 mg/dL [facility] Blood 04/25/2024 5:29 AM EDT 04/25/2024 5:52 AM EDT Narrative Resulting Agency Comment Spec In Lab Kristi Renae MD CHEMISTRY ORDERABLES Performing Organization Address [facility] Co de Phone Number [facility] [place] [address] * Magnesium (04/25/2024 5:29 AM EDT) Magnesium 0.85 0.69 - 1.07 mmol/L [facility] Blood 04/25/2024 5:29 AM EDT 04/25/2024 5:52 AM EDT Narrative Resulting Agency Comment Spec In Lab Kristi Renae MD CHEMISTRY ORDERABLES [facility] [place] [address] * Type and screen ([facility]/CHASE) (04/25/2024 5:29 AM EDT) ABORH Type A POSITIVE [facility] Patient BB History Found [facility] Expires at [id number] on: 04/28/2024 [facility] Ab Screen Interp Negative [facility] Blood 04/25/2024 5:29 AM EDT 04/25/2024 5:29 AM EDT Narrative [facility] - 04/25/2024 5:29 AM EDT This Type and Screen result is only valid at the [facility] Resulting Agency Comment Spec In Lab Kristi Renae MD BLOOD BANK LAB ORDER FRANSISCO Performing Organization Address City/[facility]/ZIP Co de Phone Number [facility] [place] [address] * (ABNORMAL) POCT Glucose (04/25/2024 4:19 AM EDT) Glucose, POC 204(H) 65 - 199 mg/dL [facility] Comment: Supplemental ranges: <140 mg/dL before meals <180 mg/dL all other times of the day Blood 04/25/2024 4:19 AM EDT 04/25/2024 4:19 AM EDT Kristi Renae MD POINT OF CARE TEST O RDERABLES [facility] [place] [address] * (ABNORMAL) POCT Glucose (04/25/2024 12:08 AM EDT) Glucose, POC 237(H) 65 - 199 mg/dL [facility] Comment: Supplemental ranges: <140 mg/dL before meals <180 mg/dL all other times of the day Blood 04/25/2024 12:0 8 AM EDT 04/25/2024 12:08 AM EDT Kristi Renae MD POINT OF CARE TEST O CARMELITA [facility] [place] [address] * POCT Glucose (04/24/2024 8:03 PM EDT) Glucose, POC 157 65 - 199 mg/dL [facility] Comment: Supplemental ranges: <140 mg/dL before meals <180 mg/dL all other times of the day Blood 04/24/2024 8:03 PM EDT 04/24/2024 8:03 PM EDT Kristi Renae MD POINT OF CARE TEST O CARMELITA Performing Organization Address City/[facility]/ZIP Co de Phone Number [facility] [place] [address] * POCT Glucose (04/24/2024 5:12 PM EDT) Glucose, POC 102 65 - 199 mg/dL [facility] Comment: Supplemental ranges: <140 mg/dL before meals <180 mg/dL all other times of the day Blood 04/24/2024 5:12 PM EDT 04/24/2024 5:12 PM EDT Kristi Renae MD POINT OF CARE TEST O CARMELITA [facility] [place] [address] * POCT Glucose (04/24/2024 3:31 PM EDT) Glucose, POC 123 65 - 199 mg/dL [facility] Comment: Supplemental ranges: <140 mg/dL before meals <180 mg/dL all other times of the day Blood 04/24/2024 3:31 PM EDT 04/24/2024 3:31 PM EDT Kristi Renae MD POINT OF CARE TEST O RDERABLES Performing Organization Address [facility]/ZIP Co de Phone Number [facility] [place] [address] * (ABNORMAL) Ferritin (04/24/2024 3:15 PM EDT) Pathologist [facility] Ferritin 1,173(H) 31 - 409 ng/mL [facility] Comment: Please note that as of 09/29/2023, the reference intervals for Ferritin have been updated. Blood 04/24/2024 3:15 PM EDT 04/24/2024 3:34 PM EDT Narrative Resulting Agency Comment Spec In Lab Ruby Villareal MD CHEMISTRY ORDERABLE S Performing Organization Address [facility] Co de Phone Number [facility] [place] [address] * (ABNORMAL) Iron and TIBC (04/24/2024 3:15 PM EDT) [facility] Iron 27(L) 45 - 160 mcg/dL [facility] TIBC 139(L) 250 - 450 mcg/dL [facility] Iron Saturation 19(L) 20 - 50 % [facility] Blood 04/24/2024 3:15 PM EDT 04/24/2024 3:34 PM EDT Narrative Resulting Agency Comment Spec In Lab Ruby Villareal MD CHEMISTRY ORDERABLE S Performing Organization Address [facility]/ZIP Co de Phone Number [facility] [place] [address] * EKG 12 Lead (04/24/2024 12:47 PM EDT) Ventricular rate 58 BPM MUSE SYSTEM Atrial Rate 58 BPM MUSE SYSTEM P-R Interval 152 ms MUSE SYSTEM QRS Duration 80 ms MUSE SYSTEM Q-T Interval 456 ms MUSE SYSTEM QTC Calculated (Bezet) 447 ms MUSE SYSTEM Calculated P [place] 51 degrees MUSE SYSTEM Calculated R [place] 9 degrees MUSE SYSTEM Calculated T [place] 39 degrees MUSE SYSTEM INTERPRETATION Sinus bradycardia Otherwise normal ECG When compared with ECG of 22-APR-2024 10:51, Sinus rhythm has replaced Atrial fibrillation Vent. rate has decreased BY ??50 BPM I personally reviewed the tracing and edited the fellows interpretation Confirmed by fellow Gregory Painting ([id number]) on 04/25/2024 1:07:18 PM Confirmed by MD Juan, Sourav ([id number]) on 04/25/2024 2:31:09 PM MUSE SYSTEM 04/24/2024 12:4 7 PM EDT 04/25/2024 2:31 PM EDT Kristi Renae MD ECG ORDERABLES Performing Organization Address City/[facility]/ZIP Co de Phone Number MUSE SYSTEM * POCT Glucose (04/24/2024 11:58 AM EDT) Glucose, POC 186 65 - 199 mg/dL [facility] Comment: Supplemental ranges: <140 mg/dL before meals <180 mg/dL all other times of the day Blood 04/24/2024 11:5 8 AM EDT 04/24/2024 11:58 AM EDT Kristi Renae MD POINT OF CARE TEST O RDERABLES Performing Organization Address City/[facility]/ZIP Co de Phone Number [facility] [place] [address] * (ABNORMAL) POCT Glucose (04/24/2024 7:36 AM EDT) Glucose, POC 200(H) 65 - 199 mg/dL [facility] Comment: Supplemental ranges: <140 mg/dL before meals <180 mg/dL all other times of the day Blood 04/24/2024 7:36 AM EDT 04/24/2024 7:36 AM EDT Kristi Renae MD POINT OF CARE TEST O RDERABLES Performing Organization Address City/[facility]/ZIP Co de Phone Number [facility] [place] [address] * (ABNORMAL) Differential, Automated (04/24/2024 5:21 AM EDT) Neutrophil % 61.7 % [facility] Neutrophil Absolute 6.04 1.70 - 6.10 x10(3)/ L [facility] Lymph % 18.8 % [facility] Lymphocytes Abs 1.8 0.9 - 3.2 x10(3)/[facility] Monocyte % 12.9 % [facility] Monocyte Abs 1.3(H) 0.3 - 0.9 x10(3)/[facility] Eos % 5.7 % [facility] Eosinophils Abs 0.6(H) 0.0 - 0.4 x10(3)/[facility] Basophil % 0.6 % [facility] Baso Absolute 0.1 0.0 - 0.1 x10(3)/[facility] Immature Gran % 0.30 % [facility] Comment: Immature granulocytes(IG's)percentage and absolute count will include metamyelocytes, myelocytes, and promyelocytes. Blood smears from CBCs yielding IG's will be scanned manually for concordance. If this scan disagrees with the automated IG or if promyelocytes are noted, a manual differential will be performed. Immature Gran Absolute 0.03 0.00 - 0.04 x10(3)/ L [facility] Blood 04/24/2024 5:21 AM EDT 04/24/2024 5:40 AM EDT Narrative Resulting Agency Comment Spec In Lab Nikky Rao MD HEMATOLOGY ORDERA BLES Performing Organization Address City/[facility]/ZIP Co de Phone Number [facility] [place] [address] * (ABNORMAL) Hemogram (04/24/2024 5:21 AM EDT) White Blood Cell 9.8(H) 4.0 - 9.5 x10(3)/[facility] Red Blood Cell 3.31(L) 4.58 - 5.54 x10(6)/[facility] Hemoglobin 9.1(L) 13.7 - 16.5 g/dL [facility] Hematocrit 30.1(L) 40.5 - 48.5 % [facility] Mean Cell Volume 90.9 82.9 - 93.1 [facility] Mean Cell Hemoglobin 27.5 27.5 - 32.1 pg [facility] Mean Cell Hemoglobin Concentration 30.2(L) 32.0 - 35.7 g/dL [facility] Platelet 381(H) 145 - 357 x10(3)/[facility] RDW Standard Deviation 54.4(H) 36.0 - 45.0 [facility] RDW coefficient of variation 16.3(H) 11.4 - 13.8 % [facility] Mean Platelet Volume 11.3 7.6 - 12.9 [facility] NRBC% auto 0.0 % [facility] NRBC Absolute 0.000 0.000 - 0.000 x10(3)/[facility] Blood 04/24/2024 5:21 AM EDT 04/24/2024 5:40 AM EDT Narrative Resulting Agency Comment Spec In Lab Nikky Rao MD HEMATOLOGY ORDERA BLES [facility] [place] [address] * (ABNORMAL) Phosphorus (04/24/2024 5:21 AM EDT) Phosphorus 6.8(H) 2.5 - 4.5 mg/dL [facility] Blood 04/24/2024 5:21 AM EDT 04/24/2024 5:40 AM EDT Narrative Resulting Agency Comment Spec In Lab Kristi Renae MD CHEMISTRY ORDERABLES Performing Organization Address [facility] Co de Phone Number [facility] [place] [address] * Magnesium (04/24/2024 5:21 AM EDT) Magnesium 0.93 0.69 - 1.07 mmol/L [facility] Blood 04/24/2024 5:21 AM EDT 04/24/2024 5:40 AM EDT Narrative Resulting Agency Comment Spec In Lab Kristi Renae MD CHEMISTRY ORDERABLES Performing Organization Address [facility] Co de Phone Number [facility] [place] [address] * Vancomycin Level, Random (04/24/2024 5:21 AM EDT) Pathologist [facility] Vancomycin, Random 14.9 mg/L [facility] Comment: This level is for determination of the patient's vancomycin djwb-axntw-mpj-curve (AUC) value. Contact the inpatient pharmacy for interpretation. Blood 04/24/2024 5:21 AM EDT 04/24/2024 5:40 AM EDT Kristi Renae MD CHEMISTRY ORDERABLES Performing Organization Address City/[facility] Co de Phone Number [facility] [place] [address] * (ABNORMAL) Basic Metabolic Panel (non-fasting) (04/24/2024 5:21 AM EDT) Glucose 184 65 - 199 mg/dL [facility] Comment:Diabetes: >=200 mg/d L plus symptoms Blood Urea Nitrogen 56(H) 10 - 20 mg/dL [facility] Creatinine 7.36(H) 0.80 - 1.50 mg/dL [facility] Comment:result rechecked-hn Sodium 139 135 - 145 mmol/L [facility] Potassium 5.5(H) 3.5 - 5.0 mmol/L [facility] Comment: Please note: ??Patients with WBC >100,000 may have falsely elevated Potassium levels. ??For accurate Potassium quantification in these patients send serum separator tube (gold top) for subsequent determinations. ??Contact the Clinical Chemistry Laboratory if there are any questions. Chloride 99 98 - 107 mmol/L [facility] Carbon Dioxide 26 22 - 31 mmol/L [facility] Anion Gap 14 5 - 15 mmol/L [facility] Calcium 9.0 8.5 - 10.5 mg/dL [facility] Est Glomerular Filtration Rate 8(L) >=60 mL/min/1. 73 m?? [facility] Comment: This patient's estimated [...] In Lab Sourav Bryson MD CHEMISTRY ORDERABLES [facility] [place] [address] * POCT Glucose (04/24/2024 4:04 AM EDT) Glucose, POC 159 65 - 199 mg/dL [facility] Comment: Supplemental ranges: <140 mg/dL before meals <180 mg/dL all other times of the day Blood 04/24/2024 4:04 AM EDT 04/24/2024 4:04 AM EDT Kristi Renae MD POINT OF CARE TEST O CARMELITA [facility] [place] [address] * (ABNORMAL) POCT Glucose (04/24/2024 1:00 AM EDT) Glucose, POC 234(H) 65 - 199 mg/dL [facility] Comment: Supplemental ranges: <140 mg/dL before meals <180 mg/dL all other times of the day Blood 04/24/2024 1:00 AM EDT 04/24/2024 1:00 AM EDT Kristi Renae MD POINT OF CARE TEST O CARMELITA Performing Organization Address [facility]/ZIP Co de Phone Number [facility] [place] [address] * (ABNORMAL) POCT Glucose (04/23/2024 8:43 PM EDT) Glucose, POC 244(H) 65 - 199 mg/dL [facility] Comment: Supplemental ranges: <140 mg/dL before meals <180 mg/dL all other times of the day Blood 04/23/2024 8:43 PM EDT 04/23/2024 8:43 PM EDT Kristi Renae MD POINT OF CARE TEST O CARMELITA [facility] [place] [address] * (ABNORMAL) POCT Glucose (04/23/2024 4:37 PM EDT) Glucose, POC 228(H) 65 - 199 mg/dL [facility] Comment: Supplemental ranges: <140 mg/dL before meals <180 mg/dL all other times of the day Blood 04/23/2024 4:37 PM EDT 04/23/2024 4:37 PM EDT Kristi Renae MD POINT OF CARE TEST O CARMELITA Performing Organization Address [facility] Co de Phone Number [facility] [place] [address] * (ABNORMAL) POCT Glucose (04/23/2024 11:57 AM EDT) Glucose, POC 208(H) 65 - 199 mg/dL [facility] Comment: Supplemental ranges: <140 mg/dL before meals <180 mg/dL all other times of the day Blood 04/23/2024 11:5 7 AM EDT 04/23/2024 11:57 AM EDT Kristi Renae MD POINT OF CARE TEST Vita MAE Performing Organization Address [facility] Co de Phone Number [facility] [place] [address] * ECHO COMPLETE (04/23/2024 11:36 AM EDT) EF 61 HEARTLAB SYSTEM Anatomical Region Laterality Modality Cardiac Other 04/23/2024 11:0 8 AM EDT Narrative 04/23/2024 2:45 PM EDT [address] [place] [address] ? Echocardiogram Report Name: GERSON BRUNER ? Study Date: 04/23/2024 11:08 AMBP: 130/67 mmHg ? Patient Location: [facility] A : 1965 ? Height: 69 in ? Account: [id number] Age: 58 yrs ? Weight: 190 lb Gender: Male ?BSA: 2.0 m2 Ordering Physician: CLEVE GARRISON Referring Physician: NONE Performed By: Noe Gong RDCS Reason For Study: Irregular heart beat Exam Location: [facility]. Interpretation Summary Left ventricular systolic function is normal. The left ventricular ejection fraction is 61% by Patel's biplane. There are no segmental wall motion abnormalities. Left ventricular filling pressure is increased. Right ventricular systolic function is normal. No significant valvular disease. Compared with study of 03/07/19, no change. Procedure Complete-41196. Left ventricular strain. Satisfactory quality. There is [...] Note Aubrey Almeida MD - 04/23/[address] [place] [address] Echocardiogram Report Name: GERSON BRUNER Study Date: 411:08 AMBP: 130/67 mmHg Patient Location: [address] : 1965 Height: 69 in Account: [id number] Age: 58 yrs Weight: 190 lb Gender: Male BSA: 2.0 m2 Ordering Physician: CLEVE GARRISON Referring Physician: NONE Performed By: Noe Gong RDCS Reason For Study: Irregular heart beat Exam Location: [facility]. Interpretation Summary Left ventricular systolic function is normal. The left ventricularejection fraction is 61% by Patel's biplane. There are no segmental wall motion abnormalities. Left ventricular filling pressure is increased. Right ventricular systolic function is normal. No significant valvular disease. Compared with study of 03/07/19, no change. Procedure Complete-16565. Left ventricular strain. Satisfactory quality. There isnormal [...] (ABNORMAL) POCT Glucose (04/23/2024 7:38 AM EDT) Glucose, POC 237(H) 65 - 199 mg/dL [facility] Comment: Supplemental ranges: <140 mg/dL before meals <180 mg/dL all other times of the day Blood 04/23/2024 7:38 AM EDT 04/23/2024 7:38 AM EDT Kristi Renae MD POINT OF CARE TEST O [place] [address] * (ABNORMAL) Differential, Automated (04/23/2024 4:22 AM EDT) Pathologist [facility] Neutrophil % 56.1 % [facility] Neutrophil Absolute 5.53 1.70 - 6.10 x10(3)/[facility] Lymph % 21.0 % [facility] Lymphocytes Abs 2.1 0.9 - 3.2 x10(3)/[facility] Monocyte % 18.3 % [facility] Monocyte Abs 1.8(H) 0.3 - 0.9 x10(3)/[facility] Eos % 3.5 % [facility] Eosinophils Abs 0.4 0.0 - 0.4 x10(3)/[facility] Basophil % 0.7 % [facility] Baso Absolute 0.1 0.0 - 0.1 x10(3)/[facility] Immature Gran % 0.40 % [facility] Comment: Immature granulocytes(IG's)percentage and absolute count will include metamyelocytes, myelocytes, and promyelocytes. Blood smears from CBCs yielding IG's will be scanned manually for concordance. If this scan disagrees with the automated IG or if promyelocytes are noted, a manual differential will be performed. Immature Gran Absolute 0.04 0.00 - 0.04 x10(3)/[facility] Blood 04/23/2024 4:22 AM EDT 04/23/2024 5:14 AM EDT Narrative Resulting Agency Comment Spec In Lab Nikky Rao MD [place] [address] * (ABNORMAL) Hemogram (04/23/2024 4:22 AM EDT) White Blood Cell 9.9(H) 4.0 - 9.5 x10(3)/ L [facility] Red Blood Cell 3.32(L) 4.58 - 5.54 x10(6)/mc L [facility] Hemoglobin 9.1(L) 13.7 - 16.5 g/dL [facility] Hematocrit 30.7(L) 40.5 - 48.5 % [facility] Mean Cell Volume 92.5 82.9 - 93.1 fL [facility] Mean Cell Hemoglobin 27.4(L) 27.5 - 32.1 pg [facility] Mean Cell Hemoglobin Concentration 29.6(L) 32.0 - 35.7 g/dL [facility] Platelet 346 145 - 357 x10(3)/[facility]AT[facility] RDW Standard Deviation 55.0(H) 36.0 - 45.0 [facility] RDW coefficient of variation 16.1(H) 11.4 - 13.8 % [facility] Mean Platelet Volume 11.6 7.6 - 12.9 [facility] LABOR[facility]ORY NRBC% auto 0.0 % [facility] NRBC Absolute 0.000 0.000 - 0.000 x10(3)/[facility] Blood 04/23/2024 4:22 AM EDT 04/23/2024 5:14 AM EDT Narrative Resulting Agency Comment Spec In Lab Nikky Rao MD HEMATOLOGY ORDERA BLES [facility] [place] [address] [place] [address] * (ABNORMAL) Phosphorus (04/23/2024 4:22 AM EDT) Phosphorus 5.6(H) 2.5 - 4.5 mg/dL [facility] Blood 04/23/2024 4:22 AM EDT 04/23/2024 5:14 AM EDT Narrative Resulting Agency Comment Spec In Lab Kristi Renae MD CHEMISTRY ORDERABLES Performing Organization Address City/[facility]/ZIP Co de Phone Number [facility] [place] [address] * Magnesium (04/23/2024 4:22 AM EDT) Pathologist [facility] Magnesium 0.88 0.69 - 1.07 mmol/L [facility] Blood 04/23/2024 4:22 AM EDT 04/23/2024 5:14 AM EDT Narrative Resulting Agency Comment Spec In Lab Kristi Renae MD CHEMISTRY ORDERABLES Performing Organization Address [facility] Co de Phone Number [facility] [place] [address] * (ABNORMAL) Basic Metabolic Panel (non-fasting) (04/23/2024 4:22 AM EDT) Glucose 321(H) 65 - 199 mg/dL [facility] Comment:Diabetes: >=200 mg/d L plus symptoms Blood Urea Nitrogen 39(H) 10 - 20 mg/dL [facility] Creatinine 5.67(H) 0.80 - 1.50 mg/dL [facility] Comment:result rechecked- Sodium 137 135 - 145 mmol/L [facility] Potassium 4.7 3.5 - 5.0 mmol/L [facility] Comment: Please note: ??Patients with WBC >100,000 may have falsely elevated Potassium levels. ??For accurate Potassium quantification in these patients send serum separator tube (gold top) for subsequent determinations. ??Contact the Clinical Chemistry Laboratory if there are any questions. Chloride 97(L) 98 - 107 mmol/L [facility] Carbon Dioxide 28 22 - 31 mmol/L [facility] Anion Gap 12 5 - 15 mmol/L [facility] Calcium 9.1 8.5 - 10.5 mg/dL [facility] Est Glomerular Filtration Rate 11(L) >=60 mL/min/1. 73 m?? [facility] Comment: This patient's estimated [...] Bryson MD CHEMISTRY ORDERABLES Performing Organization Address City/[facility]/ZIP Co de Phone Number [facility] [place] [address] * (ABNORMAL) POCT Glucose (04/23/2024 4:21 AM EDT) Glucose, POC 300(H) 65 - 199 mg/dL [facility] Comment: Supplemental ranges: <140 mg/dL before meals <180 mg/dL all other times of the day Blood 04/23/2024 4:21 AM EDT 04/23/2024 4:21 AM EDT Kristi Renae MD POINT OF CARE TEST O RDERABLES Performing Organization Address City/[facility]/ZIP Co de Phone Number [facility] [place] [address] * (ABNORMAL) POCT Glucose (04/23/2024 2:45 AM EDT) Glucose, POC 326(H) 65 - 199 mg/dL [facility] Comment: Supplemental ranges: <140 mg/dL before meals <180 mg/dL all other times of the day Blood 04/23/2024 2:45 AM EDT 04/23/2024 2:45 AM EDT Kristi Renae MD POINT OF CARE TEST O CARMELITA [facility] [place] [address] * (ABNORMAL) POCT Glucose (04/22/2024 11:54 PM EDT) Glucose, POC 366(H) 65 - 199 mg/dL [facility] Comment: Supplemental ranges: <140 mg/dL before meals <180 mg/dL all other times of the day Blood 04/22/2024 11:5 4 PM EDT 04/22/2024 11:54 PM EDT Kristi Renae MD POINT OF CARE TEST O CARMELITA Performing Organization Address [facility]/ZIP Co de Phone Number [facility] [place] [address] * (ABNORMAL) POCT Glucose (04/22/2024 10:10 PM EDT) Glucose, POC 390(H) 65 - 199 mg/dL [facility] Comment: Supplemental ranges: <140 mg/dL before meals <180 mg/dL all other times of the day Blood 04/22/2024 10:1 0 PM EDT 04/22/2024 10:10 PM EDT Kristi Renae MD POINT OF CARE TEST O CARMELITA [facility] [place] [address] * (ABNORMAL) POCT Glucose (04/22/2024 8:19 PM EDT) Glucose, POC 319(H) 65 - 199 mg/dL [facility] Comment: Supplemental ranges: <140 mg/dL before meals <180 mg/dL all other times of the day Blood 04/22/2024 8:19 PM EDT 04/22/2024 8:19 PM EDT Kristi Renae MD POINT OF CARE TEST O CARMELITA Performing Organization Address [facility] Co de Phone Number [facility] [place] [address] * (ABNORMAL) POCT Glucose (04/22/2024 4:48 PM EDT) Glucose, POC 256(H) 65 - 199 mg/dL [facility] Comment: Supplemental ranges: <140 mg/dL before meals <180 mg/dL all other times of the day Blood 04/22/2024 4:48 PM EDT 04/22/2024 4:48 PM EDT Kristi Renae MD POINT OF CARE TEST O CARMELITA Performing Organization Address [facility] Co de Phone Number [facility] [place] [address] * Vancomycin Level, Random (04/22/2024 12:24 PM EDT) Vancomycin, Random 15.6 mg/L [facility] Comment: This level is for determination of the patient's vancomycin gseu-newri-kje-curve (AUC) value. Contact the inpatient pharmacy for interpretation. Blood 04/22/2024 12:2 4 PM EDT 04/22/2024 12:32 PM EDT Kristi Renae MD CHEMISTRY ORDERABLES Performing Organization Address [facility] Co de Phone Number [facility] [place] [address] * (ABNORMAL) POCT Glucose (04/22/2024 12:09 PM EDT) Glucose, POC 202(H) 65 - 199 mg/dL [facility] Comment: Supplemental ranges: <140 mg/dL before meals <180 mg/dL all other times of the day Blood 04/22/2024 12:0 9 PM EDT 04/22/2024 12:09 PM EDT Kristi Renae MD POINT OF CARE TEST O RDERABLES Performing Organization Address [facility] Co de Phone Number [facility] [place] [address] * EKG 12 Lead (04/22/2024 10:51 AM EDT) Ventricular rate 108 BPM MUSE SYSTEM QRS Duration 88 ms MUSE SYSTEM Q-T Interval 358 ms MUSE SYSTEM QTC Calculated (Bezet) 479 ms MUSE SYSTEM Calculated R [place] 8 degrees MUSE SYSTEM Calculated T [place] 68 degrees MUSE SYSTEM INTERPRETATION Atrial fibrillation with rapid ventricular response Abnormal ECG When compared with ECG of 20-APR-2024 18:34, Atrial fibrillation has replaced Sinus rhythm Questionable change in QRS axis Confirmed by MD Monica, [place] ([id number]) on 04/26/2024 4:32:43 PM MUSE SYSTEM 04/22/2024 10:5 1 AM EDT 04/26/2024 4:32 PM EDT Dariana Albarado APRN ECG ORDERABLES Performing Organization Address [facility] de Phone Number MUSE SYSTEM * POCT Glucose (04/22/2024 7:48 AM EDT) Glucose, POC 196 65 - 199 mg/dL [facility] Comment: Supplemental ranges: <140 mg/dL before meals <180 mg/dL all other times of the day Blood 04/22/2024 7:48 AM EDT 04/22/2024 7:48 AM EDT Kristi Renae MD POINT OF CARE TEST O RDERABLES Performing Organization Address [facility] Co de Phone Number [facility] [place] [address] * POCT Glucose (04/22/2024 4:41 AM EDT) [facility] Glucose, POC 176 65 - 199 mg/dL [facility] Comment: Supplemental ranges: <140 mg/dL before meals <180 mg/dL all other times of the day Blood 04/22/2024 4:41 AM EDT 04/22/2024 4:41 AM EDT Kristi Renae MD POINT OF CARE TEST O RDERABLES Performing Organization Address City/[facility]/ZIP Co de Phone Number [facility] [place] [address] * (ABNORMAL) Phosphorus (04/22/2024 4:36 AM EDT) [facility] Phosphorus 7.9(H) 2.5 - 4.5 mg/dL [facility] Blood Venous Draw / Unknown 04/22/2024 4:36 AM EDT 04/22/2024 5:01 AM EDT Narrative Resulting Agency Comment Spec In Lab Russell Cohen MD CHEMISTRY ORDERA BLES Performing Organization Address [facility] Co de Phone Number [facility] [place] [address] * Magnesium (04/22/2024 4:36 AM EDT) [facility] Magnesium 0.86 0.69 - 1.07 mmol/L [facility] Blood Venous Draw / Unknown 04/22/2024 4:36 AM EDT 04/22/2024 5:01 AM EDT Narrative Resulting Agency Comment Spec In Lab Russell Cohen MD CHEMISTRY ORDERA BLES Performing Organization Address [facility] Co de Phone Number [facility] [place] [address] * Scan, Peripheral Blood (04/22/2024 4:36 AM EDT) [facility] Plat estimate Normal [facility] RBC Morphology Abnormal [facility] Hypochromia Slight [facility] Blood 04/22/2024 4:36 AM EDT 04/22/2024 4:56 AM EDT Narrative Resulting Agency Comment Spec In Lab Nikky Rao MD HEMATOLOGY ORDERA BLES [facility] [place] [address] * (ABNORMAL) Differential, Automated (04/22/2024 4:36 AM EDT) Neutrophil % 71.9 % [facility] Neutrophil Absolute 10.83(H) 1.70 - 6.10 x10(3)/mc L [facility] Lymph % 11.3 % [facility] Lymphocytes Abs 1.7 0.9 - 3.2 x10(3)/ L [facility] Monocyte % 14.2 % [facility] Monocyte Abs 2.1(H) 0.3 - 0.9 x10(3)/mc L [facility] Eos % 1.7 % [facility] Eosinophils Abs 0.2 0.0 - 0.4 x10(3)/ L [facility] Basophil % 0.4 % [facility] Baso Absolute 0.1 0.0 - 0.1 x10(3)/mc L [facility] Immature Gran % 0.50 % [facility] Comment: Immature granulocytes(IG's)percentage and absolute count will include metamyelocytes, myelocytes, and promyelocytes. Blood smears from CBCs yielding IG's will be scanned manually for concordance. If this scan disagrees with the automated IG or if promyelocytes are noted, a manual differential will be performed. Immature Gran Absolute 0.07(H) 0.00 - 0.04 x10(3)/mc L [facility] Blood 04/22/2024 4:36 AM EDT 04/22/2024 4:56 AM EDT Narrative Resulting Agency Comment Spec In Lab Nikky Rao MD HEMATOLOGY ORDERA BLES [facility] [place] [address] * (ABNORMAL) Hemogram (04/22/2024 4:36 AM EDT) White Blood Cell 15.0(H) 4.0 - 9.5 x10(3)/mc L [facility] Red Blood Cell 3.08(L) 4.58 - 5.54 x10(6)/mc L [facility] Hemoglobin 8.5(L) 13.7 - 16.5 g/dL [facility] Hematocrit 28.6(L) 40.5 - 48.5 % [facility] Mean Cell Volume 92.9 82.9 - 93.1 fL [facility] Mean Cell Hemoglobin 27.6 27.5 - 32.1 pg [facility] Mean Cell Hemoglobin Concentration 29.7(L) 32.0 - 35.7 g/dL [facility] Platelet 328 145 - 357 x10(3)/mc L [facility] RDW Standard Deviation 54.1(H) 36.0 - 45.0 fL [facility] RDW coefficient of variation 15.9(H) 11.4 - 13.8 % [facility] Mean Platelet Volume 11.3 7.6 - 12.9 fL [facility] NRBC% auto 0.0 % [facility] NRBC Absolute 0.000 0.000 - 0.000 x10(3)/[facility] Blood 04/22/2024 4:36 AM EDT 04/22/2024 4:56 AM EDT Narrative Resulting Agency Comment Spec In Lab Nikky Rao MD HEMATOLOGY ORDERA BLES [facility] [place] [address] * (ABNORMAL) Basic Metabolic Panel (non-fasting) (04/22/2024 4:36 AM EDT) Glucose 195 65 - 199 mg/dL [facility] Comment:Diabetes: >=200 mg/d L plus symptoms Blood Urea Nitrogen 39(H) 10 - 20 mg/dL [facility] Creatinine 6.97(H) 0.80 - 1.50 mg/dL [facility] Comment:result rechecked-bz Sodium 138 135 - 145 mmol/L [facility] Potassium 5.3(H) 3.5 - 5.0 mmol/L [facility] Comment: Please note: ??Patients with WBC >100,000 may have falsely elevated Potassium levels. ??For accurate Potassium quantification in these patients send serum separator tube (gold top) for subsequent determinations. ??Contact the Clinical Chemistry Laboratory if there are any questions. Chloride 99 98 - 107 mmol/L [facility] Carbon Dioxide 22 22 - 31 mmol/L [facility] Anion Gap 17(H) 5 - 15 mmol/L [facility] Calcium 8.4(L) 8.5 - 10.5 mg/dL [facility] Est Glomerular Filtration Rate 9(L) >=60 mL/min/1. 73 m?? [facility] Comment: This patient's estimated [...] Bryson MD CHEMISTRY ORDERABLES Performing Organization Address [facility] Co de Phone Number [facility] [place] [address] * POCT Glucose (04/21/2024 11:01 PM EDT) Pathologist [facility] Glucose, POC 147 65 - 199 mg/dL [facility] Comment: Supplemental ranges: <140 mg/dL before meals <180 mg/dL all other times of the day Blood 04/21/2024 11:0 1 PM EDT 04/21/2024 11:01 PM EDT Kristi Renae MD POINT OF CARE TEST O RDERABLES Performing Organization Address [facility] Co de Phone Number [facility] [place] [address] * Type and Screen Validity (04/21/2024 7:56 PM EDT) [facility] T&S only valid at [facility] LABORATORY Comment:This Type and Screen result is only valid at the [facility] Blood 04/21/2024 7:56 PM EDT 04/21/2024 7:56 PM EDT Narrative Resulting Agency Comment Spec In Lab Jules Osborne MD BLOOD BANK LAB ORD ERABLES Performing Organization Address [facility]/ZIP Co de Phone Number [facility] [place] [address] * Type and screen ([facility]CGP/CHASE) (04/21/2024 7:56 PM EDT) ABORH Type A POSITIVE [facility] Patient BB History Found [facility] Expires at [id number] on: 04/24/2024 [facility] Ab Screen Interp Negative [facility] Blood 04/21/2024 7:56 PM EDT 04/21/2024 7:56 PM EDT Narrative [facility] - 04/21/2024 7:56 PM EDT This Type and Screen result is only valid at the [facility] Resulting Agency Comment Spec In Lab Kristi Renae MD BLOOD BANK LAB ORDER [place] Performing Organization Address City/[facility]/ZIP Co de Phone Number [facility] [place] [address] * POCT Glucose (04/21/2024 7:30 PM EDT) Glucose, POC 139 65 - 199 mg/dL [facility] Comment: Supplemental ranges: <140 mg/dL before meals <180 mg/dL all other times of the day Blood 04/21/2024 7:30 PM EDT 04/21/2024 7:30 PM EDT Kristi Renae MD POINT OF CARE TEST O RDERABLES Performing Organization Address [facility]/ZIP Co de Phone Number [facility] [place] [address] * POCT Glucose (04/21/2024 5:36 PM EDT) Glucose, POC 140 65 - 199 mg/dL [facility] Comment: Supplemental ranges: <140 mg/dL before meals <180 mg/dL all other times of the day Blood 04/21/2024 5:36 PM EDT 04/21/2024 5:36 PM EDT Kristi Renae MD POINT OF CARE TEST O RDERABLES Performing Organization Address City/[facility]/ZIP Co de Phone Number [facility] [place] [address] * Surgical Pathology Report (04/21/2024 5:35 PM EDT) Final Diagnosis [id number] ? Location: L4WD; 0420; A The signing [...] Govea Verified: ??05/03/2024 12:50 ??Pathologist Performed at: ??-[facility] Dept. of Pathology, [place] [address] Retail Loss Prevention Investigator: Karina Valencia MD, FCAP, ??CLIA Certificate: [id number] SPECIMEN(S) SUBMITTED A - Right leg CLINICAL [...] Sections/Processi ng: Blocks submitted for decalcification: A3-A4. Voice Teacher sections in 4 cassettes as follows: ?A1: ??Skin and muscle section at margin ?A2: ??Ulcer with underlying soft tissue ?A3: ??Bone underlying ulcer ?A4: ??Cross-sections of anterior tibial artery, posterior tibial artery, and ? dorsalis pedis ??JSH/SNS 05/03/2024 12:50 PM EDT [facility] Extremity 04/21/2024 5:35 PM EDT 04/21/2024 5:35 PM EDT Devendra Red MD PATHOLOGY/CYTOLOGY O RDERABLES Performing Organization Address [facility]/ZIP Co de Phone Number [facility] [place] [address] * Specimen to Pathology (04/21/2024 5:35 PM EDT) AP Specimen 04/21/2024 5:35 PM EDT 04/21/2024 5:35 PM EDT Narrative [facility] - 04/21/2024 5:35 PM EDT Specimen requisition ordered. ??Separate Pathology report to follow Kristi Renae MD PATHOLOGY/CYTOLOGY O RDERABLES Performing Organization Address [facility]/ZIP Co de Phone Number [facility] [place] [address] * Anaerobic Culture (04/21/2024 5:07 PM EDT) Anaerobic Culture No anaerobic organisms isolated [facility] Drainage RIGHT HEEL STRUCTURE / Unknown 04/21/2024 5:07 PM EDT 04/21/2024 7:39 PM EDT Narrative Resulting Agency Comment Spec In Lab Devendra Red MD MICROBIOLOGY - GENER AL ORDERABLES Performing Organization Address [facility] Co de Phone Number [facility] [place] [address] * (ABNORMAL) Abscess/Wound Aspirate Culture (04/21/2024 5:07 PM EDT) Abscess/Wound Aspirate Culture Many mixed bacterial morphotypes suggestive of normal cutaneous moy including : mixed Gram Negative organisms (A) [facility] Gram Stain Rare Neutrophils Few Gram Positive Cocci seen (A) [facility] Organism Gram Positive Cocci(A) [facility] Drainage RIGHT HEEL STRUCTURE / Unknown 04/21/2024 5:07 PM EDT 04/21/2024 7:39 PM EDT Narrative Resulting Agency Comment Spec In Lab Devendra Red MD MICROBIOLOGY - GENER AL ORDERABLES Performing Organization Address [facility]/ZIP Co de Phone Number [facility] [place] [address] * Magnesium (04/21/2024 4:24 PM EDT) Magnesium 0.82 0.69 - 1.07 mmol/L [facility] Blood 04/21/2024 4:24 PM EDT 04/21/2024 4:37 PM EDT Narrative Resulting Agency Comment Spec In Lab Kristi Renae MD CHEMISTRY ORDERABLES Performing Organization Address [facility]/ZIP Co de Phone Number [facility] [place] [address] * (ABNORMAL) Phosphorus (04/21/2024 4:24 PM EDT) Phosphorus 4.7(H) 2.5 - 4.5 mg/dL [facility] Blood 04/21/2024 4:24 PM EDT 04/21/2024 4:37 PM EDT Narrative Resulting Agency Comment Spec In Lab Kristi Renae MD CHEMISTRY ORDERABLES Performing Organization Address City/[facility]/ZIP Co de Phone Number [facility] [place] [address] * (ABNORMAL) Basic Metabolic Panel (non-fasting) (04/21/2024 4:24 PM EDT) Glucose 142 65 - 199 mg/dL [facility] Comment:Diabetes: >=200 mg/d L plus symptoms Blood Urea Nitrogen 32(H) 10 - 20 mg/dL [facility] Creatinine 5.70(H) 0.80 - 1.50 mg/dL [facility] Comment:result rechecked-KD Sodium 137 135 - 145 mmol/L [facility] Potassium 4.6 3.5 - 5.0 mmol/L [facility] Comment: Please note: ??Patients with WBC >100,000 may have falsely elevated Potassium levels. ??For accurate Potassium quantification in these patients send serum separator tube (gold top) for subsequent determinations. ??Contact the Clinical Chemistry Laboratory if there are any questions. Chloride 97(L) 98 - 107 mmol/L [facility] Carbon Dioxide 21(L) 22 - 31 mmol/L [facility] Anion Gap 19(H) 5 - 15 mmol/L [facility] Calcium 8.8 8.5 - 10.5 mg/dL [facility] Est Glomerular Filtration Rate 11(L) >=60 mL/min/1. 73 m?? [facility] Comment: This patient's estimated [...] In Lab Kristi Renae MD CHEMISTRY ORDERABLES [facility] [place] [address] * (ABNORMAL) Hemogram (04/21/2024 4:24 PM EDT) White Blood Cell 19.8(H) 4.0 - 9.5 x10(3)/ L [facility] Red Blood Cell 3.35(L) 4.58 - 5.54 x10(6)/[facility] Hemoglobin 9.4(L) 13.7 - 16.5 g/dL [facility] Hematocrit 29.8(L) 40.5 - 48.5 % [facility] Comment: This result has been called to DARIANA by Iliana Rangel on 04 21 2024 at 1644, and has been read back. OR said they were not waiting for results Mean Cell Volume 89.0 82.9 - 93.1 [facility] Mean Cell Hemoglobin 28.1 27.5 - 32.1 pg [facility] Mean Cell Hemoglobin Concentration 31.5(L) 32.0 - 35.7 g/dL [facility] Platelet 348 145 - 357 x10(3)/ L [facility] RDW Standard Deviation 51.5(H) 36.0 - 45.0 [facility] RDW coefficient of variation 15.8(H) 11.4 - 13.8 % [facility] Mean Platelet Volume 11.2 7.6 - 12.9 [facility] NRBC% auto 0.0 % [facility] NRBC Absolute 0.000 0.000 - 0.000 x10(3)/[facility] Blood 04/21/2024 4:24 PM EDT 04/21/2024 4:37 PM EDT Narrative Resulting Agency Comment Spec In Lab Kristi Renae MD HEMATOLOGY ORDERABLE S [facility] [place] [address] * POCT Glucose (04/21/2024 4:07 PM EDT) Glucose, POC 137 65 - 199 mg/dL [facility] Comment: Supplemental ranges: <140 mg/dL before meals <180 mg/dL all other times of the day Blood 04/21/2024 4:07 PM EDT 04/21/2024 4:07 PM EDT Krisit Renae MD POINT OF CARE TEST O RDERAKEREN Performing Organization Address [facility]/ZIP Co de Phone Number [facility] [place] [address] * POCT Glucose (04/21/2024 11:25 AM EDT) Glucose, POC 183 65 - 199 mg/dL [facility] Comment: Supplemental ranges: <140 mg/dL before meals <180 mg/dL all other times of the day Blood 04/21/2024 11:2 5 AM EDT 04/21/2024 11:25 AM EDT Kristi Renae MD POINT OF CARE TEST O ADITIERAKEREN Performing Organization Address [facility]/ZIP Co de Phone Number [facility] [place] [address] * POCT Glucose (04/21/2024 7:51 AM EDT) Glucose, POC 172 65 - 199 mg/dL [facility] Comment: Supplemental ranges: <140 mg/dL before meals <180 mg/dL all other times of the day Blood 04/21/2024 7:51 AM EDT 04/21/2024 7:51 AM EDT Kristi Renae MD POINT OF CARE TEST O RDERAKEREN [facility] [place] [address] * Lavender Tube HOLD (04/21/2024 7:39 AM EDT) [facility] Lavender Hold Sample in lab. [facility] Blood Venous Draw / Unknown 04/21/2024 7:39 AM EDT 04/21/2024 7:[address] Rei Gasca MD HEMATOLOGY ORDERABLE S [facility] [place] [address] * Vancomycin Level, Random (04/21/2024 7:39 AM EDT) [facility] Vancomycin, Random 14.1 mg/L [facility] Comment: This level is for determination of the patient's vancomycin igoq-cqkib-xqt-curve (AUC) value. Contact the inpatient pharmacy for interpretation. Blood 04/21/2024 7:39 AM EDT 04/21/2024 7:48 AM EDT Sourav Bryson MD CHEMISTRY ORDERABLES Performing Organization Address [facility]/ZIP Co de Phone Number [facility] [place] [address] * (ABNORMAL) POCT Glucose (04/21/2024 4:13 AM EDT) [facility] Glucose, POC 207(H) 65 - 199 mg/dL [facility] Comment: Supplemental ranges: <140 mg/dL before meals <180 mg/dL all other times of the day Blood 04/21/2024 4:13 AM EDT 04/21/2024 4:13 AM EDT Kristi Renae MD POINT OF CARE TEST O RDERABLES Performing Organization Address City/[facility]/ZIP Co de Phone Number [facility] [place] [address] * POCT Glucose (04/21/2024 1:54 AM EDT) Glucose, POC 183 65 - 199 mg/dL [facility] Comment: Supplemental ranges: <140 mg/dL before meals <180 mg/dL all other times of the day Blood 04/21/2024 1:54 AM EDT 04/21/2024 1:54 AM EDT Kristi Renae MD POINT OF CARE TEST O CARMELITA Performing Organization Address [facility] Co de Phone Number [facility] [place] [address] * POCT Glucose (04/20/2024 11:59 PM EDT) Glucose, POC 172 65 - 199 mg/dL [facility] Comment: Supplemental ranges: <140 mg/dL before meals <180 mg/dL all other times of the day Blood 04/20/2024 11:5 9 PM EDT 04/20/2024 11:59 PM EDT Kristi Renae MD POINT OF CARE TEST O CARMELITA Performing Organization Address [facility] de Phone Number [facility] [place] [address] * (ABNORMAL) BLOOD GAS 2 VENOUS (04/20/2024 11:34 PM EDT) pH, Venous 7.37 7.32 - 7.42 [facility] PCO2, Venous 44 41 - 51 mmHg [facility] PO2, Venous 41(H) 25 - 40 mmHg [facility] Bicarbonate, Venous 24.9 mmol/L [facility] Base Excess, Venous -0.4 mmol/L [facility] Hgb Blood Gas 9.6(L) 13.7 - 16.5 g/dL [facility] Oxyhemoglobin, Venous 69.9 % [facility] Carboxyhemoglob in, Venous 1.1 % [facility] Comment: Nonsmokers: 0.5-1.5% COHB Smokers: Variable, but usually less than 10% Toxic: 20-30% COHB Lethal: Greater than 60% COHB Methemoglobin, Venous 0.6 <=1.5 % [facility] Na Whole Blood 130(L) 135 - 145 mmol/L [facility] K Whole Blood 4.9 3.5 - 5.0 mmol/L [facility] Comment: Please note: Patients with WBC >100,000 may have falsely elevated Potassium levels. Contact the Clinical Chemistry Laboratory if there are any questions. ICa Whole Blood 1.13(L) 1.15 - 1.33 mmol/L [facility] Comment: Note: ??Total bilirubin higher than 20 mg/dL may lead to falsely low ionized calcium. CL Whole Blood 95(L) 98 - 107 mmol/L [facility] Gluc Whole Bld 182 65 - 199 mg/dL [facility] Comment:Diabetes: >=200 mg/d L plus symptoms Lactate WB 1.0 0.5 - 2.2 mmol/L [facility] Blood Gas Source Venous [facility] Blood 04/20/2024 11:3 4 PM EDT 04/20/2024 11:34 PM EDT Kristi Renae MD POINT OF CARE TEST O RDERABLES [facility] [place] [address] * (ABNORMAL) Differential, Automated (04/20/2024 11:32 PM EDT) Neutrophil % 72.5 % [facility] Neutrophil Absolute 12.43(H) 1.70 - 6.10 x10(3)/mc L [facility] Lymph % 8.9 % [facility] Lymphocytes Abs 1.5 0.9 - 3.2 x10(3)/mc L [facility] Monocyte % 16.9 % [facility] Monocyte Abs 2.9(H) 0.3 - 0.9 x10(3)/[facility] Eos % 0.8 % [facility] Eosinophils Abs 0.1 0.0 - 0.4 x10(3)/[facility] Basophil % 0.4 % [facility] Baso Absolute 0.1 0.0 - 0.1 x10(3)/[facility] Immature Gran % 0.50 % [facility] Comment: Immature granulocytes(IG's)percentage and absolute count will include metamyelocytes, myelocytes, and promyelocytes. Blood smears from CBCs yielding IG's will be scanned manually for concordance. If this scan disagrees with the automated IG or if promyelocytes are noted, a manual differential will be performed. Immature Gran Absolute 0.09(H) 0.00 - 0.04 x10(3)/[facility] Blood 04/20/2024 11:3 2 PM EDT 04/20/2024 11:38 PM EDT Narrative Resulting Agency Comment Spec In Lab Nikky Rao MD HEMATOLOGY ORDERA BLES [facility] [place] [address] * (ABNORMAL) Hemogram (04/20/2024 11:32 PM EDT) White Blood Cell 17.1(H) 4.0 - 9.5 x10(3)/[facility] Red Blood Cell 3.20(L) 4.58 - 5.54 x10(6)/[facility] Hemoglobin 8.9(L) 13.7 - 16.5 g/dL [facility] Hematocrit 28.8(L) 40.5 - 48.5 % [facility] Mean Cell Volume 90.0 82.9 - 93.1 fL [facility] Mean Cell Hemoglobin 27.8 27.5 - 32.1 pg [facility] Mean Cell Hemoglobin Concentration 30.9(L) 32.0 - 35.7 g/dL [facility] Platelet 340 145 - 357 x10(3)/mc L [facility] RDW Standard Deviation 52.2(H) 36.0 - 45.0 fL [facility] RDW coefficient of variation 15.8(H) 11.4 - 13.8 % [facility] Mean Platelet Volume 11.0 7.6 - 12.9 fL [facility] NRBC% auto 0.0 % [facility] NRBC Absolute 0.000 0.000 - 0.000 x10(3)/mc L [facility] Blood 04/20/2024 11:3 2 PM EDT 04/20/2024 11:38 PM EDT Narrative Resulting Agency Comment Spec In Lab Nikky Rao MD HEMATOLOGY ORDERA BLES [facility] [place] [address] * (ABNORMAL) Basic Metabolic Panel (non-fasting) (04/20/2024 11:32 PM EDT) Glucose 185 65 - 199 mg/dL [facility] Comment:Diabetes: >=200 mg/d L plus symptoms Blood Urea Nitrogen 42(H) 10 - 20 mg/dL [facility] Creatinine 7.05(H) 0.80 - 1.50 mg/dL [facility] Sodium 132(L) 135 - 145 mmol/L [facility] Potassium 5.1(H) 3.5 - 5.0 mmol/L [facility] Comment: Please note: ??Patients with WBC >100,000 may have falsely elevated Potassium levels. ??For accurate Potassium quantification in these patients send serum separator tube (gold top) for subsequent determinations. ??Contact the Clinical Chemistry Laboratory if there are any questions. Chloride 95(L) 98 - 107 mmol/L [facility] Carbon Dioxide 23 22 - 31 mmol/L [facility] Anion Gap 14 5 - 15 mmol/L [facility] Calcium 8.7 8.5 - 10.5 mg/dL [facility] Est Glomerular Filtration Rate 8(L) >=60 mL/min/1. 73 m?? [facility] Comment: This patient's estimated [...] Renae MD CHEMISTRY ORDERABLES Performing Organization Address [facility]/ZIP Co de Phone Number [facility] [place] [address] * POCT Glucose (04/20/2024 11:07 PM EDT) Glucose, POC 197 65 - 199 mg/dL [facility] Comment: Supplemental ranges: <140 mg/dL before meals <180 mg/dL all other times of the day Blood 04/20/2024 11:0 7 PM EDT 04/20/2024 11:07 PM EDT Kristi Renae MD POINT OF CARE TEST O RDERABLES Performing Organization Address City/[facility]/ZIP Co de Phone Number [facility] [place] [address] * (ABNORMAL) Phosphorus (04/20/2024 10:17 PM EDT) Phosphorus 5.8(H) 2.5 - 4.5 mg/dL [facility] Blood 04/20/2024 10:1 7 PM EDT 04/20/2024 10:17 PM EDT Narrative Resulting Agency Comment Spec In Lab Sourav Bryson MD CHEMISTRY ORDERABLES Performing Organization Address [facility]/ZIP Co de Phone Number [facility] [place] [address] * Magnesium (04/20/2024 10:17 PM EDT) Magnesium 0.83 0.69 - 1.07 mmol/L [facility] Blood 04/20/2024 10:1 7 PM EDT 04/20/2024 10:17 PM EDT Narrative Resulting Agency Comment Spec In Lab Sourav Bryson MD CHEMISTRY ORDERABLES Performing Organization Address [facility] Co de Phone Number [facility] [place] [address] * (ABNORMAL) Basic Metabolic Panel (non-fasting) (04/20/2024 10:17 PM EDT) Glucose 195 65 - 199 mg/dL [facility] Comment:Diabetes: >=200 mg/d L plus symptoms Blood Urea Nitrogen 41(H) 10 - 20 mg/dL [facility] Creatinine 6.58(H) 0.80 - 1.50 mg/dL [facility] Sodium 132(L) 135 - 145 mmol/L [facility] Potassium Not Perf 3.5 - 5.0 [facility] Comment: Unable to quantitate due to sample hemolysis. ??Sample redraw suggested. Called by: , Read back by: Renetta Kaur, Date/Time:04/20/24 22:50. Please note: ??Patients with WBC >100,000 may have falsely elevated Potassium levels. ??For accurate Potassium quantification in these patients send serum separator tube (gold top) for subsequent determinations. ??Contact the Clinical Chemistry Laboratory if there are any questions. Chloride 97(L) 98 - 107 mmol/L [facility] Carbon Dioxide 21(L) 22 - 31 mmol/L [facility] Anion Gap 14 5 - 15 mmol/L [facility] Calcium 8.5 8.5 - 10.5 mg/dL [facility] Est Glomerular Filtration Rate 9(L) >=60 mL/min/1. 73 m?? [facility] Comment: This patient's estimated [...] Bryson MD CHEMISTRY ORDERABLES Performing Organization Address [facility]/ZIP Co de Phone Number [facility] [place] [address] * POCT Glucose (04/20/2024 9:56 PM EDT) Glucose, POC 173 65 - 199 mg/dL [facility] Comment: Supplemental ranges: <140 mg/dL before meals <180 mg/dL all other times of the day Blood 04/20/2024 9:56 PM EDT 04/20/2024 9:56 PM EDT Kristi Renae MD POINT OF CARE TEST O RDERABLES Performing Organization Address City/[facility]/ZIP Co de Phone Number [facility] [place] [address] * POCT Glucose (04/20/2024 7:40 PM EDT) Pathologist [facility] Glucose, POC 153 65 - 199 mg/dL [facility] Comment: Supplemental ranges: <140 mg/dL before meals <180 mg/dL all other times of the day Blood 04/20/2024 7:40 PM EDT 04/20/2024 7:40 PM EDT Kristi Renae MD POINT OF C[place] [address] * (ABNORMAL) Differential, Automated (04/20/2024 7:39 PM EDT) [facility] Neutrophil % 70.9 % [facility] Neutrophil Absolute 12.08(H) 1.70 - 6.10 x10(3)/mc L [facility] Lymph % 8.6 % [facility] Lymphocytes Abs 1.5 0.9 - 3.2 x10(3)/mc L [facility] Monocyte % 18.9 % [facility] Monocyte Abs 3.2(H) 0.3 - 0.9 x10(3)/mc L [facility] Eos % 0.6 % [facility] Eosinophils Abs 0.1 0.0 - 0.4 x10(3)/mc L [facility] Basophil % 0.4 % [facility] Baso Absolute 0.1 0.0 - 0.1 x10(3)/mc L [facility] Immature Gran % 0.60 % [facility] Comment: Immature granulocytes(IG's)percentage and absolute count will include metamyelocytes, myelocytes, and promyelocytes. Blood smears from CBCs yielding IG's will be scanned manually for concordance. If this scan disagrees with the automated IG or if promyelocytes are noted, a manual differential will be performed. Immature Gran Absolute 0.10(H) 0.00 - 0.04 x10(3)/ L [facility] Blood 04/20/2024 7:39 PM EDT 04/20/2024 10:34 PM EDT Narrative Resulting Agency Comment Spec In Lab Nikky Rao MD HEMATOLOGY ORDERA BLES [facility] [place] [address] * (ABNORMAL) Hemogram (04/20/2024 7:39 PM EDT) White Blood Cell 17.0(H) 4.0 - 9.5 x10(3)/[facility] Red Blood Cell 2.93(L) 4.58 - 5.54 x10(6)/[facility] Hemoglobin 8.3(L) 13.7 - 16.5 g/dL [facility] Hematocrit 25.9(L) 40.5 - 48.5 % [facility] Mean Cell Volume 88.4 82.9 - 93.1 fL [facility] Mean Cell Hemoglobin 28.3 27.5 - 32.1 pg [facility] Mean Cell Hemoglobin Concentration 32.0 32.0 - 35.7 g/dL [facility] Platelet 347 145 - 357 x10(3)/[facility] RDW Standard Deviation 52.6(H) 36.0 - 45.0 [facility] RDW coefficient of variation 16.2(H) 11.4 - 13.8 % [facility] Mean Platelet Volume 11.7 7.6 - 12.9 [facility] NRBC% auto 0.0 % [facility] NRBC Absolute 0.000 0.000 - 0.000 x10(3)/[facility] Blood 04/20/2024 7:39 PM EDT 04/20/2024 10:34 PM EDT Narrative Resulting Agency Comment Spec In Lab Nkiky Rao MD HEMATOLOGY ORDERA BLES Performing Organization Address City/[facility] Co de Phone Number [facility] [place] [address] * EKG 12 Lead (04/20/2024 6:34 PM EDT) Ventricular rate 77 BPM MUSE SYSTEM Atrial Rate 77 BPM MUSE SYSTEM P-R Interval 140 ms MUSE SYSTEM QRS Duration 80 ms MUSE SYSTEM Q-T Interval 390 ms MUSE SYSTEM QTC Calculated (Bezet) 441 ms MUSE SYSTEM Calculated P [place] 70 degrees MUSE SYSTEM Calculated R [place] 70 degrees MUSE SYSTEM Calculated T [place] 55 degrees MUSE SYSTEM INTERPRETATION Normal sinus rhythm Normal ECG When compared with ECG of 18-FEB-2024 14:42, No significant change was found Confirmed by MD Nugent Jose ([id number]) on 04/20/2024 9:23:41 PM MUSE SYSTEM 04/20/2024 6:34 PM EDT 04/20/2024 9:23 PM EDT Pau Burt APRN ECG ORDERABLES Performing Organization Address [facility] Co de Phone Number MUSE SYSTEM * (ABNORMAL) BLOOD GAS 2 VENOUS (04/20/2024 5:53 PM EDT) pH, Venous 7.41 7.32 - 7.42 [facility] PCO2, Venous 42 41 - 51 mmHg [facility] PO2, Venous 39 25 - 40 mmHg [facility] Bicarbonate, Venous 26.3 mmol/L [facility] Base Excess, Venous 1.6 mmol/L [facility] Hgb Blood Gas 10.1(L) 13.7 - 16.5 g/dL [facility] Oxyhemoglobin, Venous 70.8 % [facility] Carboxyhemoglob in, Venous 2.8 % [facility] Comment: Nonsmokers: 0.5-1.5% COHB Smokers: Variable, but usually less than 10% Toxic: 20-30% COHB Lethal: Greater than 60% COHB Methemoglobin, Venous 0.4 <=1.5 % [facility] Na Whole Blood 131(L) 135 - 145 mmol/L [facility] K Whole Blood 5.2(H) 3.5 - 5.0 mmol/L [facility] Comment: Please note: Patients with WBC >100,000 may have falsely elevated Potassium levels. Contact the Clinical Chemistry Laboratory if there are any questions. ICa Whole Blood 1.11(L) 1.15 - 1.33 mmol/L [facility] Comment: Note: ??Total bilirubin higher than 20 mg/dL may lead to falsely low ionized calcium. CL Whole Blood 94(L) 98 - 107 mmol/L [facility] Gluc Whole Bld 174 65 - 199 mg/dL [facility] Comment:Diabetes: >=200 mg/d L plus symptoms Lactate WB 1.1 0.5 - 2.2 mmol/L [facility] Blood Gas Source Venous [facility] Blood 04/20/2024 5:53 PM EDT 04/20/2024 5:53 PM EDT Sourav Bryson MD POINT OF CARE TEST O RDERABLES [facility] [place] [address] * XR Ankle Min 3 views Right (Generic) (04/20/2024 5:44 PM EDT) WORKSTATION ID [id number] RAD Anatomical Region Laterality Modality Ankle Right [...] who have questions please contact the health dialysis patient care technician that requested your imaging first. ? Electronically signed by: Ludmila Shea MD, [facility] ([phone]), at 04/20/2024 6:28 PM Narrative 04/20/2024 6:28 PM EDT EXAMINATION: XR [...] patients who have questions please contactthe health dialysis patient care technician that requested your imaging first. Macario Thomas MD IMG DX ORDERABLES * XR Foot Min 3 views Right (Generic) (04/20/2024 5:44 PM EDT) WORKSTATION ID [id number] RAD Anatomical Region Laterality Modality Foot Right [...] who have questions please contact the health dialysis patient care technician that requested your imaging first. ? Electronically signed by: Ludmila Shea MD, [facility] ([phone]), at 04/20/2024 6:28 PM Narrative 04/20/2024 6:28 PM EDT EXAMINATION: XR [...] patients who have questions please contactthe health dialysis patient care technician that requested your imaging first. Macario Thomas MD IMG DX ORDERABLES * XR Chest One View (04/20/2024 5:44 PM EDT) WORKSTATION ID [id number] RAD Anatomical Region Laterality Modality Chest N/A [...] who have questions please contact the health dialysis patient care technician that requested your imaging first. ? Electronically signed by: Ludmila Shea MD, [facility] ([phone]), at 04/20/2024 6:31 PM Narrative 04/20/2024 6:31 PM EDT EXAMINATION: XR [...] patients who have questions please contactthe health dialysis patient care technician that requested your imaging first. Macario Thomas MD IMG DX ORDERABLES * Scan, Peripheral Blood (04/20/2024 5:09 PM EDT) Plat estimate Increased [facility] RBC Morphology Normal [facility] Blood 04/20/2024 5:09 PM EDT 04/20/2024 5:21 PM EDT Narrative Resulting Agency Comment Spec In Lab Pau [place] BACK SEWER HEMATOLOGY ORDERA BLES [facility] [place] [address] * Bryson Tube Hold (04/20/2024 5:09 PM EDT) Bryson Hold Sample in lab. [facility] Blood Venous Draw / Unknown 04/20/2024 5:09 PM EDT 04/20/2024 5:22 PM EDT Pau Burt APRN CHEMISTRY ORDERAB LES Performing Organization Address City/[facility]/ZIP Co de Phone Number [facility] [place] [address] * Gold Tube HOLD (04/20/2024 5:09 PM EDT) Gold Hold Sample in lab. [facility] Blood Venous Draw / Unknown 04/20/2024 5:09 PM EDT 04/20/2024 5:21 PM EDT Pau [place] [employer] CHEMISTRY ORDERAB LES Performing Organization Address City/[facility]/ZIP Co de Phone Number [facility] [place] [address] * Blue Tube HOLD (04/20/2024 5:09 PM EDT) Blue Hold Sample in lab. [facility] Blood Venous Draw / Unknown 04/20/2024 5:09 PM EDT 04/20/2024 5:22 PM EDT Pau [place] [employer] HEMATOLOGY ORDERA BLES Performing Organization Address City/[facility]/ZIP Co de Phone Number [facility] [place] [address] * (ABNORMAL) Differential, Automated (04/20/2024 5:09 PM EDT) Pathologist [facility] Neutrophil % 76.9 % [facility] Neutrophil Absolute 14.16(H) 1.70 - 6.10 x10(3)/ L [facility] Lymph % 7.8 % [facility] Lymphocytes Abs 1.4 0.9 - 3.2 x10(3)/[facility] Monocyte % 14.1 % [facility] Monocyte Abs 2.6(H) 0.3 - 0.9 x10(3)/[facility] Eos % 0.3 % [facility] Eosinophils Abs 0.0 0.0 - 0.4 x10(3)/[facility] Basophil % 0.3 % [facility] Baso Absolute 0.1 0.0 - 0.1 x10(3)/[facility] Immature Gran % 0.60 % [facility] Comment: Immature granulocytes(IG's)percentage and absolute count will include metamyelocytes, myelocytes, and promyelocytes. Blood smears from CBCs yielding IG's will be scanned manually for concordance. If this scan disagrees with the automated IG or if promyelocytes are noted, a manual differential will be performed. Immature Gran Absolute 0.11(H) 0.00 - 0.04 x10(3)/ L [facility] Blood 04/20/2024 5:09 PM EDT 04/20/2024 5:21 PM EDT Narrative Resulting Agency Comment Spec In Lab Pau Burt APRN HEMATOLOGY ORDERA BLES [facility] [place] [address] * (ABNORMAL) Hemogram (04/20/2024 5:09 PM EDT) White Blood Cell 18.4(H) 4.0 - 9.5 x10(3)/mc L [facility] Red Blood Cell 3.45(L) 4.58 - 5.54 x10(6)/mc L [facility] Hemoglobin 9.6(L) 13.7 - 16.5 g/dL [facility] Hematocrit 30.8(L) 40.5 - 48.5 % [facility] Mean Cell Volume 89.3 82.9 - 93.1 fL [facility] Mean Cell Hemoglobin 27.8 27.5 - 32.1 pg [facility] Mean Cell Hemoglobin Concentration 31.2(L) 32.0 - 35.7 g/dL [facility] Platelet 387(H) 145 - 357 x10(3)/ L [facility] RDW Standard Deviation 51.5(H) 36.0 - 45.0 [facility] RDW coefficient of variation 15.8(H) 11.4 - 13.8 % [facility] Mean Platelet Volume 11.3 7.6 - 12.9 [facility] NRBC% auto 0.0 % [facility] NRBC Absolute 0.000 0.000 - 0.000 x10(3)/ L [facility] Blood 04/20/2024 5:09 PM EDT 04/20/2024 5:21 PM EDT Narrative Resulting Agency Comment Spec In Lab Pau Burt APRN HEMATOLOGY ORDERA BLES [facility] [place] [address] * (ABNORMAL) Comprehensive metabolic panel (non-fasting) (04/20/2024 5:09 PM EDT) Glucose 176 65 - 199 mg/dL [facility] Comment:Diabetes: >=200 mg/d L plus symptoms Blood Urea Nitrogen 41(H) 10 - 20 mg/dL [facility] Creatinine 6.27(H) 0.80 - 1.50 mg/dL [facility] Sodium 133(L) 135 - 145 mmol/L [facility] Potassium 5.5(H) 3.5 - 5.0 mmol/L [facility] Comment: Please note: ??Patients with WBC >100,000 may have falsely elevated Potassium levels. ??For accurate Potassium quantification in these patients send serum separator tube (gold top) for subsequent determinations. ??Contact the Clinical Chemistry Laboratory if there are any questions. Chloride 94(L) 98 - 107 mmol/L [facility] Carbon Dioxide 25 22 - 31 mmol/L [facility] Anion Gap 14 5 - 15 mmol/L [facility] Calcium 9.3 8.5 - 10.5 mg/dL [facility] Protein, Total 6.5 6.1 - 8.0 g/dL [facility] Albumin 3.2 3.2 - 5.2 g/dL [facility] Aspartate Aminotransferase 16 0 - 39 unit/L [facility] Alanine Aminotransferase 16 0 - 55 unit/L [facility] Alkaline Phosphatase 210(H) 40 - 130 unit/L [facility] Bilirubin, Total <0.2(L) 0.2 - 1.3 mg/dL [facility] Est Glomerular Filtration Rate 10(L) >=60 mL/min/1. 73 m?? [facility] Comment: This patient's estimated [...] APRN CHEMISTRY ORDERAB LES Performing Organization Address City/[facility] Co de Phone Number [facility] [place] [address] * Blood culture (04/20/2024 5:08 PM EDT) Blood Culture No growth at 5 days. [facility] Blood 04/20/2024 5:08 PM EDT 04/20/2024 6:29 PM EDT Comment:R Basilic Narrative Resulting Agency Comment Spec In Lab Macario Thomas MD MICROBIOLOGY - BLOOD ORDERABLES Performing Organization Address [facility] Co de Phone Number [facility] [place] [address] * Blood culture (04/20/2024 5:08 PM EDT) Blood Culture No growth at 5 days. [facility] Blood 04/20/2024 5:08 PM EDT 04/20/2024 6:30 PM EDT Comment:R Forearm Narrative Resulting Agency Comment Spec In Lab Macario Thomas MD MICROBIOLOGY - BLOOD ORDERABLES Performing Organization Address [facility] Co de Phone Number [facility] [place] [address] * POCT Glucose (04/20/2024 4:51 PM EDT) Glucose, POC 179 65 - 199 mg/dL [facility] Comment: Supplemental ranges: <140 mg/dL before meals <180 mg/dL all other times of the day Blood 04/20/2024 4:51 PM EDT 04/20/2024 4:51 PM EDT Emergency Dept POINT OF CARE TEST ORDERABLES [facility] [place] [address] documented in this encounter Visit Diagnoses Not on filedocumented in this encounter Admitting Diagnoses Diagnosis Non [...] Given 04/28/2024 11:00 PM EDT 975 mg apixaban (Eliquis) tablet 5 mg 5 [...] PRN, Starting on 04/22/24 at 2211, Until 7/6/24 at 1658, Heartburn, Routine Given 04/26/2024 9:58 [...] EVERY 6 HOURS SCHEDULED, First dose on 04/23/24 at 0600, Until Discontinued, HOLD for SBP < 90, HR < 60, Routine Given 04/29/2024 11:57 AM EDT 30 mg Given 04/29/2024 5:27 AM EDT 30 mg Given 04/28/2024 11:00 PM EDT 30 mg glucagon (Glucagen) (1 mg/mL) injection solution [...] PM EDT 0.5 mg HYDROmorphone (Dilaudid) tablet 4 mg 4 [...] 04/28/2024 9:00 AM EDT 23 Units insulin lispro (HumaLOG;Admelog) (100 unit/mL) subcutaneous [...] Given 04/28/2024 11:05 PM EDT 2 Units lidocaine (Lidoderm) 5% patch 1 patch 1 [...] 10 mg, Oral, DAILY, First dose on 04/29/24 at 1400, Until Discontinued, Routine Given 04/29/2024 1:52 PM EDT 10 mg pantoprazole EC (Protonix) tablet 40 mg 40 mg, Oral, DAILY, First dose on Viridiana 04/20/24 at 1942, Until Discontinued, DO NOT CRUSH OR OPEN, Routine Given 04/29/2024 8:53 AM EDT 40 mg Given 04/28/2024 11:40 AM EDT 40 mg Given 04/27/2024 8:40 AM EDT 40 mg pregabalin (Lyrica) capsule 100 mg 100 mg, Oral, 2 TIMES DAILY, First dose on Viridiana 04/20/24 at 2100, Until Discontinued, Routine Given 04/29/2024 8:52 AM EDT 100 mg Given 04/28/2024 8:38 PM EDT 100 mg Given 04/28/2024 8:26 AM EDT 100 mg ROpivacaine (Naropin) 0.2% (2 mg/mL) infusion (AMBIT PUMP) Infiltration, Laterality: Right, Infusion Site: sciatic, Basal Flow Rate (mL/hr): : 6 mL/hr, [employer] Bolus Amt: 3 mL, [employer] Bolus Frequency: 30 minutes, 1 Hour Dose [...] Given 04/28/2024 6:04 PM EDT 1,600 mg sodium chloride 0.9 % (flush) (BD [...] Given 04/28/2024 11:33 AM EDT 4 mg documented in this encounter Active and Recently Administered Medications Times are shown in EDT. Scheduled Medication Order 04/27/2024 04/28/202404/2904/29/2024 acetaminophen (Tylenol) tablet 975 mg 975 mg, [...] Sofy Ross RN)2331 (Given - Provider: Concetta Canchola, VIDYA) 0548 (Given - Provider: Concetta Canchola RN)1133 [...] Canchola RN) 0549 (Given - Provider: Concetta Canchola, VIDYA)1133 (Given - Provider: Renetta Kaur RN)1808 (Given - Provider: Sofy Ross RN)2300 (Given - Provider: Gianluca Ge, VIDYA) 0527 [...] on Wed04/27/24 at 0900, Until Discontinued, Routine 0850 (Given [...] carb cover him)1700 (Not Given - Provider: Sofy Ross RN - Reason: Patient/family refused - [...] parameters not met)1245 (Given - Provider: Sofy Ross RN)1744 (Given - Provider: Sofy Ross RN - Comment: sleeping)2013 (Given - Provider: Concetta Canchola RN)2331 (Given - Provider: Concetta Canchola RN) 0400 (Not Given - Provider: Concetta Canchola RN - Reason: Patient/family refused - Comment: patient refused blood sugar check)0800 (Given - Provider: Sara Pang RN)1134 (Given - Provider: Renetta Kaur RN)1555 (Given - Provider: Saar Pang RN)2035 (Given - Provider: Iam Cardenas RN)2305 (Given - Provider: Gianluca Ge, VIDYA) 0523 (Given - Provider: Gianlcua Ge RN)0800 (Not Given - Provider: Donavon [...] Discontinued, Routine 1352 (Given - Provider: Donavon Guzman RN) pantoprazole EC (Protonix) tablet 40 mg 40 mg, Oral, DAILY, First dose on Wed04/20/24 at 1942, Until Discontinued, DO NOT CRUSH OR OPEN, Routine 0840 (Given - Provider: Sofy Ross RN) 1140 (Given - Provider: Renetta Kaur RN) 0853 (Given - Provider: Ara Eastman, RN) piperacillin-tazobactam (Zosyn) 3.375 g vial attach to sodium chloride 0.9% 50 mL Mini-Bag Plus (CANCELED) 3.375 g, Intravenous, EVERY 12 HOURS, First dose (after last modification) on Wed04/21/24 at 0000, Until Discontinued, Administer over 4 Hours, Per P&T renal dose adjustment by pharmacy policy Warning Vesicant/Irritant Medication Per chronic specialist labeling, do not administer or Y-site with lactated ringers., Indication for (Active or Suspected): Bone/Joint 0337 (Stopped - Provider: Elle Pineda RN)1240 (New Bag - Provider: Sofy Ross RN)1640 (Stopped - Provider: Sofy Ross RN)2332 (New Bag - Provider: Concetta Canchola, VIDYA) 0332 (Stopped - Provider: Concetta Canchola RN) pregabalin (Lyrica) capsule 100 mg 100 mg, Oral, 2 TIMES DAILY, First dose on Wed04/20/24 at 2100, Until Discontinued, Routine 0840 (Given - Provider: Sofy Ross RN)2002 (Given - Provider: Concetta Canchola RN) 0826 (Given - Provider: Sara Pang RN)203 (Given - Provider: Iam Cardenas, VIDYA) 0852 (Given - Provider: Ara Eastman, VIDYA) [...] Provider: Sara Pang RN)1133 (Given - Provider: Renetta Kaur, VIDYA)1804 (Given - Provider: Sofy Ross RN) 0800 [...] RN) 1136 (Given - Provider: Renetta Kaur RN)2130 (Given - Provider: Iam Cardenas RN) 0859 (Given - Provider: Ara Eastman RN) Continuous Medication Order 04/27/2024 04/28/2024 04/29/2024 ROpivacaine (Naropin) 0.2% (2 mg/mL) infusion (AMBIT PUMP) Infiltration, Laterality: Right, Infusion Site: sciatic, Basal Flow Rate (mL/hr): : 6 mL/hr, [employer] Bolus Amt: 3 mL, [employer] Bolus Frequency: 30 minutes, 1 Hour Dose [...] on dialysis 922 (Given - Provider: Michelle Garduno, RN) glucagon (Glucagen) (1 mg/mL) injection solution [...] at 1658, Pain, Moderate Pain (4-6), Routine 45 (Given - Provider: Elle Pineda RN) 1817 (See Alternative - Provider: Sofy Ross RN)2302 (See Alternative - Provider: Gianluca Ge, VIDYA) [...] provider., Routine 2038 (Given - Provider: Iam Cardenas, VIDYA) 014 (Given - Provider: Gianluca Ge, VIDYA) HYDROmorphone (Dilaudid) tablet 4 mg(Linked Group 4) [...] RN) 0548 (Given - Provider: Concetta Canchola RN)1134 (See Alternative - Provider: Renetta Kaur RN)1551 (See Alternative - Provider: Sara Pang, RN)2158 (See Alternative - Provider: Gianluca Ge, VIDYA) 0150 (See Alternative - Provider: Gianluca Ge [...] RN) 181 (Given - Provider: Sofy Ross, VIDYA)2303 (Given - Provider: Gianluca Ge, VIDYA) lidocaine [...] spasms, Routine 1240 (Given - Provider: Sofy Ross RN) 1133 (Given - Provider: Renetta Kaur RN)203 (Given - Provider: Iam Cardenas RN) 0527 (Given - Provider: Gianluca Ge, VIDYA) Linked Groups Order Group 1: POCT Fingerstick [...] Oral, EVERY 4 HOURS PRN, Starting on 04/26/24 at 1110, Until 04/29/24 at 1658, Pain, severe pain (7-10), Routine documented in this encounter Care Teams Garment Liner Relationship Specialty Start Date End Date Ken Greer MD PCP - General Family Medicine 12/30/23 05/15/24 documented as of this encounter
--- OUTSIDE RECORDS SUMMARY | 2024-12-05 12:35 | XMS_ITS | Encounter Summary ---
Author Organization Formerly [facility] [place] [address] Care Team Providers Care Law Enforcement Instructor Name Role Phone Ken Greer MD Primary Care Provider [phone] Reason for Visit * Auth/Cert (Routine) Specialty Diagnoses / Procedures Referred By Nader gardiner Referred To Contact Diagnoses Non healing left heel wound Sepsis with acute organ dysfunction, due to unspecified organism, unspecified organ dysfunction type, unspecified whether septic shock present Kristi Renae MD [facility] DR VASCULAR SURGERY [place] [id number] [facility] Referral ID Status Reason Start Date Expiration Date Visits Re quested Visits Authorized [id number] 1 1 Encounter Details Date Type Department Care Team (Late st Contact Info) Description 04/25/2024 3:55 PM EDT Anesthesia [place] [address] Leonora Mosher MD [facility] [place] [address] Sandra Malave MD [facility] [address] Anesthesia Record Procedure Summary Procedure Name Responsible Anesthesiologist Anesthesia Start Time Anesthesia Stop Time AMPUTATION, BELOW-KNEE, SECONDARY CLOSURE OR SCAR REVISION (WRVU 8.76) (Right: Leg Lower) Leonora Mosher MD 04/25/24 1555 04/25/24 1810 Events Date Time Event Comment 04/25/2024 1555 AN Verify 1555 Start 1555 An Start Data 1600 Quick Note Finished dose o f Zosyn that patient was receiving in SDP. 1609 An Induction 1610 An Intubation 1615 Anesthesia Ready 1640 Quick Note Biomed assistin g with changing the brick. 1759 Extubation/LMA Out 1804 an stop data 1808 Recovery or ICU Handoff Annemarie ent care was transferred to the destination unit staff after review of the patient's medical history, current anesthetic/surgical status and plan, according to the Provider Handoff Checklist. 181 Stop 190 Meds Name Total fentaNYL 50 mcg lidocaine IV 50 mg propofoL 200 mg PHENYLephrine 400 mcg ePHEDrine 15 mg BUpivacaine 0.5% 30 mL piperacillin-tazobactam 3.375 g lactated ringers 500 mL D5W 50 mL * Agents Name O2 * Blood No blood administrations on file. Lines, Drains, and Airways Type Details Placement Removal Incision 02/18/24; 1856; Left , anterior, distal, lower; leg 02/18/24 1856 by Oksana Santos RN Do Not Use This Location 02/20/24; 1854; LUE; Fistula / Graft 02/20/24 1854 by Naun Randolph RN Hemodialysis Arteriovenous (AV) Access 02/21/24; upper arm, left 02/21/24 0000 by Gregory Strickland RN Incision 02/21/24; 1638; Left ; leg 02/21/24 1638 by Juana Mcduffie RN Incision 04/11/24; 1110; Left , anterior; hip; non-laparascopic puncture; Left Femoral Artery Sheath site 04/11/24 1110 by Letha Díaz RN Incision 04/25/24; 1634; Right, anterior, lower, proximal; leg; horizontal; BKA 04/25/24 1634 by Paris Eubanks RN Incision 04/21/24; Right, lower; leg; other (see comments) (BKA stump); LDA not present upon assessment; 04/25/24; 1805 04/21/24 0000 by Elle Finn RN 04/25/24 1805 by Ivette Myles RN PIV 04/23/24; 0037; fxjv-eny-pemlci catheter system; 22 gauge, 1.75 in length; cephalic vein (lateral side of arm), right; Ultrasound Guidance; Yes - US guidance used but Image NOT saved; LG VAS; distraction; 0; lumen/catheter not patent, removed per patient, site care per policy/procedure, site symptomatic, catheter/device intact; 04/26/24; 1242 04/23/24 0037 by Osmin Zimmer RN 04/26/24 1242 by Simón Ponce RN Supraglottic Mask Ventilation: No t Attempted (0); LMA Type: iGel; LMA Size: 5; Inserted by: Ananda; Removal Date: 04/25/24; Removal Time: 175804/25/24 161 by Sandra Malave MD 04/25/24 175 by Sheila Stark CRNA ETT Removal Date: 04/25/24; Removal Time: 175804/25/24 161 by Sandra Malave MD 04/25/241758 by Sheila Stark CRNA documented in this encounter Social History Tobacco Use Types Packs/Day Years Used Date Smoking Tobacco: Every Day Cigarettes Last attempted to quit: 12/26/2018 Smokeless Tobacco: Never Comments:smoking a few a day Alcohol Use Standard Drinks/Week Comments No 0 (1 standard drink = 0.6 oz pur e alcohol) [facility] Utilities Answer Date Recorded In the past 12 months has th e [employer], gas, oil, or water [id number] threatened to shut off services in your [...] in a half-way (including now)? No 04/21/2024 IPV Inpatient Questions [...] of this encounter OR Notes * Anesthesia Postprocedure Evaluation - Leonora Mosher MD - 04/25/2024 7:08 PM EDT Department of Anesthesiology Post-procedure Note Patient: Gerson Bruner Procedure Summary Date: 04/25/24 Room / Location: [facility] OR [address] [place] [address] MAIN OR Anesthesia Start: 1554 Anesthesia Stop: 1809 Procedure: AMPUTATION, BELOW-KNEE, SECONDARY CLOSURE OR SCAR REVISION (WRVU 8.76) (Right: Leg Lower) Diagnosis: (infected right heal) Surgeons: Janet Carrington MD Responsible Provider: Leonora Mosher MD Anesthesia Type: general ASA Status: 3 All Anesthesia Providers: Anesthesiologist: Leonora Mosher MD DIRECTOR BANKING: Sheila Stark CRNA Gasket Inspector: Sandra Malave MD Vitals Value Taken Time BP 137/66 04/25/24 1900 Temp Pulse 64 04/25/24 1907 Resp 23 04/25/24 1907 SpO2 90 % 04/25/24 1907 Pain Level 0 04/25/24 1900 Vitals shown include unfiled device data. Patient Location: PACU/[facility] Level of Consciousness: Awake and Alert Pain Management: Satisfactory Analgesia PONV: None Cardiovascular Status: At Baseline and Hemodynamically Stable Respiratory Status: Supplemental O2 (NC or FM) Postoperative Fluid Status: Intravascular EUvolemia Possible Anesthetic Complications: NONE apparent at time of evaluation Final Primary Anesthesia Type: General (The anesthetic type performed was the same as planned.) Comments: Pops Saph block in place. Leonora Mosher MD * Anesthesia Procedure Notes - Lauryn Schulz MD - 04/25/2024 4:28 PM EDT Associated Order(s): Anesthesia Block Anesthesia Block Date/Time: 04/25/2024 3:15 PM Start Time: 04/25/2024 3:15 PM End Time: 04/25/2024 3:27 PM Patient Location: PreOp The patient was greeted; the risks and [...] and in-plane Ultrasound Image Saved Single-Shot: Single-shot Local Anesthetic Volume(s) Injected for Nerve Block: BUpivacaine 0.5% - Perineural 30 mL - 04/25/2024 3:15:00 PM Nerve Sensory/MotorTest: Events: no complications Notes: Target structures, needle, and local anesthetic spread were visualized under US guidance for the duration of the procedure. No blood aspirated, no pain on injection, no paresthesias. No needle to nerve contact was observed on ultrasound. 20ml given near sciatic bifurcation on posterior knee (popliteal nerve block). 10ml of 0.5% bupivacaine/ropivacaine given in adductor canal on mid medial thigh (saphenous nerve block) Performed by: Resident/DIRECTOR BANKING: Lauryn Schulz MD Second Resident/DIRECTOR BANKING: Lauryn Schulz MD Attending Physician: Patrica Greene MD Authorized by: Patrica Greene MD * Anesthesia Preprocedure Evaluation - Leonora Mosher MD - 04/24/2024 6:00 PM EDT Pre-Anesthesia Evaluation for: Gerson Bruner a 58 y.o. male. Procedure(s): AMPUTATION, BELOW-KNEE, SECONDARY CLOSURE OR [facility] REVISION [facility] Patient Active Problem List Diagnosis Date Noted *Non healing left heel wound 04/20/2024 Hypertensive urgency 04/11/2024 Critical ischemia of lower extremity 04/11/2024 Acute hypoxic respiratory failure 03/13/2024 Surgical wound present 03/09/2024 Status post below knee amputation, left 03/09/2024 Diabetic foot ulcer 03/09/2024 Blister of second toe of right foot 03/09/2024 Postoperative anemia due to acute blood loss 02/25/2024 Non-healing open wound of heel 02/18/2024 TIA (transient ischemic attack) 07/19/2020 Right sided numbness 03/07/2019 CKD (chronic kidney disease) stage 5, GFR less than 15 ml/min 02/07/2019 Secondary hyperparathyroidism 10/26/2018 Hyperglycemia 08/10/2018 Pre-transplant evaluation for CKD (chronic kidney disease) 06/02/2018 Essential hypertension 01/20/2017 Proteinuria 09/07/2016 Anemia of chronic renal failure, stage 4 (severe) 07/19/2016 Essential hypertension with goal blood pressure less than 130/80 07/19/2016 Diabetes mellitus 07/19/2016 Hyperlipidemia 07/19/2016 Herniation of lumbar intervertebral disc with radiculopathy 08/16/2015 Type II or unspecified type diabetes mellitus with neurological manifestations, uncontrolled(250.62) 07/19/2014 Leg cramps 07/19/2014 Cigarette smoker 07/19/2014 Unspecified hearing loss 07/19/2014 Past Medical History: Diagnosis Date Anemia Chronic kidney disease CKD (chronic kidney disease) stage 4, GFR 15-29 ml/min Diabetes mellitus Herniation of lumbar intervertebral disc with radiculopathy 08/16/2015 L4-5 left Hypertension Past Surgical History: Procedure Laterality Date PRO AMPUTATION ANKLE-TIB/FIB MALLEOLI Right 04/21/2024 @AMPUTATION, ANKLE (WRVU 10.37) performed by Janet Carrington MD at [facility] MAIN OR PRO AMPUTATION LOW LEG THRU TIB/FIB Left 02/21/2024 @AMPUTATION, BELOW-KNEE (WRVU 15.37) performed by Kristi Renae MD at [facility] MAIN OR PRO AMPUTATION LOW LEG, CIRCULAR Left 02/18/2024 @AMPUTATION, BELOW-KNEE, OPEN, GUILLOTINE (WRVU 9.79) performed by Kristi Renae MD at [facility] MAIN OR PRO ANASTOMOSIS, AV, ANY SITE Left 09/05/2018 AV FISTULA CREATION, DIRECT HEMODIALYSIS, ANY SITE, EG GABRIEL FISTULA UPPER EXTREMITY (WRVU 11.9) performed by Scout Reese MD at [facility] MAIN OR PRO COLONOSCOPY, REMV LESN, SNARE N/A 09/26/2019 COLONOSCOPY, POLYPECTOMY, REMOVAL LESION BY SNARE (WRVU 4.67) performed by Kaye Gibbs MD at [facility] ENDOSCOPY PRO DEBRIDEMENT SUBCUTANEOUS TISSUE 20 SQCM/< Right 04/21/2024 DEBRIDEMENT SKIN AND SUBCU, LOWER EXTREMITY (WRVU 1.01) performed by Janet Carrington MD at [facility] MAIN OR VS ARTERIOGRAM LOWER EXTREMITY VASCULAR SURGERY 04/11/2024 VS Arteriogram Lower Extremity Vascular Surgery 04/11/2024 Kristi Renae MD [facility] INTERVENTIONL RAD Social History Tobacco Use Smoking status: Every Day Current packs/day: 0.00 Types: Cigarettes Last attempt to quit: 12/26/2018 Years since quittin.3 Smokeless tobacco: Never Tobacco comments: smoking a few a day Substance Use Topics Alcohol use: No Social History Substance and Sexual Activity Drug Use Yes Types: Marijuana Comment: multiple times daily Allergies Allergen Reactions Clindamycin Swelling. Gabapentin swelling Zoloft [Sertraline] Other reaction(s): Unsure Medications: MAR and/or home medications have been reviewed. Physical Exam: Preprocedure Vitals Current as of 04/24/24 1800 BP: 164/82 Pulse: 56 Resp: 18 SpO2: 98 Temp: 36.7 ??C (98.1 ??F) Height: Weight: 86.2 kg (190 lb) (04/20/24) BMI: IBW: Last edited 04/24/24 1709 by BJ Currently displaying vitals information from multiple entries within 180 minutes of most recent vitals. Airway Assessment: Mallampati: II TM distance: >3 FB Neck ROM: full Cardiovascular Assessment: system normal Pulmonary Assessment: unlabored breathing pulmonary exam normal Dental Assessment: (+) upper dentures Comment: Multiple missing teeth. Misc Assessment: Last Filed Perioperative Cognitive Screening Value Time User 4AT TOTAL Score: 0 02/25/2024 12:00 PM Smitha Layne RN Anesthesia Plan: ASA 3 general, with a(n) intravenous induction 58M w/ PMH significant for insulin-dependent T2DM, current smoker, ESRD (on HD MWF), HTN, paroxysmal atrial fibrillation (on diltiazem and SC heparin), secondary hyperparathyroidism, and TIA (2019) who presents for RLE BKA in the setting of heel infection. Labs and medications reviewed. Activity tolerance >4 METs. No GERD symptoms this AM. NPO adequate. Anesthesia History: -Prior easy mask ventilation, G1 view w/ Mac 4 blade -No personal or family h/o anesthetic complications Allergies: -- Clindamycin -- Swelling. -- Gabapentin -- swelling -- Zoloft [Sertraline] -- Other reaction(s): Unsure ECHO (04/23/2024): Left ventricular systolic function is normal. The left ventricular ejection fraction is 61% by Patel's biplane. There are no segmental wall motion abnormalities. Left ventricular filling pressure is increased. Right ventricular systolic function is normal. No significant valvular disease. PLAN: -[place], [place] -Standard ASA monitors -Adequate IV access Region - Other Informed Consent: Anesthetic plan and risks discussed with patient. Plan discussed with resident and attending. Anesthesia Screening documented in this encounter Plan of Treatment Not on file documented as of this encounter Procedures Procedure Name Priority Date/Time Associated Diagnosis Comments ANESTHESIA BLOCK Routine 04/25/2024 3:15 PM EDT documented in this encounter Results * Anesthesia Block (04/25/2024 3:15 PM EDT) Narrative Patrica Greene MD - 04/25/2024 3:15 PM EDT Lauryn Schulz MD ? 04/25/2024 ??4:29 PM Anesthesia Block Date/Time: 04/25/2024 3:15 PM Start Time: ??04/25/2024 3:15 PM End Time: ??04/25/2024 3:27 PM Patient Location: ??PreOp The patient was greeted; the risks and [...] and in-plane ??Ultrasound Image Saved ?Single-Shot: ??Single-shot Local Anesthetic Volume(s) Injected for Nerve Block: ?? BUpivacaine 0.5% - Perineural 30 mL - 04/25/2024 3:15:00 PM Nerve Sensory/MotorTest: ??Events: no complications ?? Notes: ?? Target structures, needle, and local anesthetic spread were visualized under US guidance for the duration of the procedure. No blood aspirated, no pain on injection, no paresthesias. No needle to nerve contact was observed on ultrasound. 20ml given near sciatic bifurcation on posterior knee (popliteal nerve block). 10ml of 0.5% bupivacaine/ropivacaine given in adductor canal on mid medial thigh (saphenous nerve block) Performed by: ?? Resident/DIRECTOR BANKING: ? Lauryn Schulz MD ?? Second Resident/DIRECTOR BANKING: Lauryn Schulz MD ?? Attending Physician: ? Patrica Greene MD Authorized by: Patrica Greene MD ?? Patrica Greene MD [employer] [facility] documented in this encounter Visit Diagnoses Not on filedocumented in this encounter Administered Medications Inactive Administered Medications - up to 3 most recent administrations Medication Order MAR Action Action Date Dose Rate Site BUpivacaine (pf) (Marcaine) (5 mg/mL) 0.5% injection Perineural, Starting on Wed04/25/24 at 1515, Until Wed04/25/24 at 1515, Anesthesia Intra-op, Routine Given 04/25/2024 3:15 PM EDT 30 mLs dextrose 5% infusion Intravenous, CONTINUOUS PRN, Starting on Wed04/25/24 at 1751, Until Wed04/25/24 at 1814, Anesthesia Intra-op New Bag 04/25/2024 5:51 PM EDT ePHEDrine sulfate (5 mg/mL) multi-dose injection Intravenous, PRN, Starting on Wed04/25/24 at 1647, Until Wed04/25/24 at 1814, Anesthesia Intra-op, Routine Given 04/25/2024 4:51 PM EDT 10 mg Given 04/25/2024 4:47 PM EDT 5 mg fentaNYL (pf) (50 mcg/mL) multi-dose injection Intravenous, PRN, Starting on Wed04/25/24 at 1624, Until Wed04/25/24 at 1814, Anesthesia Intra-op, Routine Given 04/25/2024 4:24 PM EDT 50 mcg lactated ringers infusion Intravenous, CONTINUOUS PRN, Starting on Wed04/25/24 at 1555, Until Wed04/25/24 at 1814, Anesthesia Intra-op New Bag 04/25/2024 3:55 PM EDT lidocaine (pf) (Xylocaine) (20 mg/mL) 2% injection syringe Intravenous, PRN, Starting on Wed04/25/24 at 1609, Until Wed04/25/24 at 1814, Anesthesia Intra-op, Routine Given 04/25/2024 4:09 PM EDT 50 mg PHENYLephrine in NS (PF) (KIA-SYNEPHRINE) 0.8 mg/10 mL (80 mcg/mL) multi-dose injection Syringe Intravenous, PRN, Starting on Wed04/25/24 at 1637, Until Wed04/25/24 at 1814, Anesthesia Intra-op, Routine Given 04/25/2024 5:10 PM EDT 160 mcg Given 04/25/2024 4:51 PM EDT 80 mcg Given 04/25/2024 4:44 PM EDT 80 mcg piperacillin-tazobactam (Zosyn) injection Intravenous, PRN, Starting on Wed04/25/24 at 1555, Until Wed04/25/24 at 1814, Anesthesia Intra-op, Routine Given 04/25/2024 3:55 PM EDT 3.375 g propofoL (Diprivan) 10 mg/mL bolus injection (Anesthesia) Intravenous, PRN, Starting on Wed04/25/24 at 1609, Until Wed04/25/24 at 1814, Anesthesia Intra-op Given 04/25/2024 4:09 PM EDT 200 mg documented in this encounter Care Teams Law Enforcement Instructor Relationship Specialty Start Date End Date Ken Greer MD PCP - General Family Medicine 12/30/23 05/15/24 documented as of this encounter
--- OUTSIDE RECORDS SUMMARY | 2024-12-05 12:36 | XMS_ITS | Encounter Summary ---
Author Organization [facility] [place] [address] Care Team Providers Care Boat Canvas Maker And Installer Name Role Phone Ken Greer MD Primary Care Provider [phone] Reason for Visit * Auth/Cert (Routine) Specialty Diagnoses / Procedures Referred By Nader gardiner Referred To Contact Diagnoses Non healing left heel wound Sepsis with acute organ dysfunction, due to unspecified organism, unspecified organ dysfunction type, unspecified whether septic shock present Kristi Renae MD [facility] [place] [address] [facility] Referral ID Status Reason Start Date Expiration Date Visits Re quested Visits Authorized [id number] 1 1 Encounter Details Date Type Department Care Team (Late st Contact Info) Description 04/20/2024 3:30 PM EDT [place] [address] Apurva Crowley APRN [facility] [place] [address] Status post below knee amputation, left; Diabetic ulcer of right heel associated with diabetes mellitus due to underlying condition, with other ulcer severity Social History Tobacco Use Types Packs/Day Years Used Date Smoking Tobacco: Every Day Cigarettes Last attempted to quit: 12/26/2018 Smokeless Tobacco: Never Comments:smoking a few a day Alcohol Use Standard Drinks/Week Comments No 0 (1 standard drink = 0.6 oz pur e alcohol) [facility] Utilities Answer Date Recorded In the [...] time in the past 12 m [facility], were you homeless or living [...] Sign Reading Time Taken Comments Blood Pressure 164/98 04/20/2024 3:30 PM EDT Pulse 86 04/20/2024 3:30 PM EDT Temperature 39.2 ??C (102.6 ??F) 04/20/2024 3:30 PM E DT Respiratory Rate - - Oxygen Saturation 97% 04/20/2024 3:30 PM EDT Inhaled Oxygen Concentration - - Weight - - Height - - Body Mass Index - - documented in this encounter Progress Notes * Apurva Crowley APRN - 04/20/2024 3:30 PM EDT Images from the original note were not included. [facility] Progress Note Reason for Visit: Gerson Bruner is a 58 y.o. male who returns for evaluation of Non-healing open wound of the right heel . HPI: Patient referred by Kristi Renae MD. He was admitted 02/17-/02/25/24 by vascular service forbilateral heel ulcers, left worse than right in setting of diabetes. In ED the patient estimated that these have been here for approximately 1 to 2 months, and he follows with a truck driving instructor for these.He presented to [facility] initially after noting fevers and after his VNA identified worsening redness of the left foot. He states that at baseline he does not ambulate much. The patient has not had any vascular interventions in the past, although he has been evaluated by a vascular surgeon at [facility] who determined that he does not have any indication for revascularization based on his toe pressures. Patient admitted to Vascular Surgery. Orthopedics was consulted for possible amputation but decision made to have this occur with Vascular Surgery and Orthopedics signed off. Patient taken to OR with findings of Left foot with gangrenous calcaneal and left lateral foot ulcer. 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 Diabetes management team was consulted for recommendations for FSBS/Insulin. BIT was consulted as patient struggling with amputation closure which will require a belowknee completion. Patient continued to have HD 3x weekly [facility]. Sterile operative dressing removed on 02/24/24, incision without erythema or drainage, IV antibiotics discontinued. D/C [facility]. 04/11/24: Angiogram of the RLE Intervention: Right SFA angioplasty (Benton 5x60), Right SFA DCBA ([place] 5x100), Right PT angioplasty (Jhon 2x100 and 2x20) - Completion angiogram demonstrated: Excellent SFA patency with robust inline flow. Improved runoffto the foot via the AT primarily, and the PT has improved outflow to the foot as well Patient has a past medical history of Anemia, Chronic kidney disease, CKD (chronic kidney disease) stage 4, GFR 15-29 ml/min, Diabetes mellitus, Herniation of lumbar intervertebral disc with radiculopathy (08/16/2015), and Hypertension. 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 No blood pressure taken in left arm due to fistula. Imaging: MRI Right foot ordered on 03/09/24: not scheduled as of yet. Xray Bilateral Feet 02/18/24 FINDINGS: Right foot: No fracture or dislocation. No osseous destructive change or periostitis. No tracking soft tissue gas. Mild soft tissue irregularity overlying the heel presumably the patient's known ulcer. Small marginal cysts or mild marginal erosive changes at the great toe IP joint. Joint spaces are maintained. Atherosclerotic vascular calcifications. Mild dorsal soft tissue swelling. Posterior calcaneal spur. Left foot: No acute fracture or dislocation. Large soft tissue wound that appears to expose the plantar aspect of the posterior calcaneal tuberosity. No osseous destructive change or periostitis. There is a small amount of soft tissue gas in the adjacent plantar soft tissues extending distally and laterally corresponding to findings on the recent CT 02/17/2024. Mild first MTP joint osteoarthritis. Mild degenerative change at the first TMT joint. Atherosclerotic vascular calcifications. IMPRESSION 1. No radiographic evidence of advanced acute osteomyelitis. 2. Large soft tissue wound along the plantar aspect of the left heel which appears to expose the posterior calcaneal tuberosity. Correlate with physical exam. No appreciable osseous destructive change. 3. Small amount of soft tissue gas tracking distally along the lateral aspect of the calcaneus similar to CT for 13/03/2024. Findings may be due to recent debridement versus gas-forming infection. Correlate with surgical history/timing. CT Left LE 02/18/24 IMPRESSION 1. Large soft tissue wound/defect that exposes the plantar surface of the posterior calcaneal tuberosity. This finding in addition to a few small bubbles of intraosseous gas in the plantar surface of the calcaneus is concerning for contaminated bone and acute calcaneal osteomyelitis. 2. Bubbles of tracking soft tissue gas in the plantar lateral mid and hindfoot which may be the sequela of recent debridement or alternatively gas-forming infection. 3. Diffuse subcutaneous edema. Correlate clinically with evidence of cellulitis. Pertinent labs: Lab Results Component Value Date WBC 9.4 03/14/2024 HGB 8.3 (L) 03/14/2024 HCT 26.1 (L) 03/14/2024 MCV 92.2 03/14/2024 PLATELET 409 (H) 03/14/2024 Lab Results Component Value Date NA 140 03/14/2024 K 4.8 03/14/2024 CL 100 03/14/2024 CO2 27 03/14/2024 BUN 52 (H) 03/14/2024 CREATININE 5.92 (H) 03/14/2024 GLUCOSE 74 03/14/2024 GLUCFASTING 331 (H) 03/07/2019 CALCIUM 9.2 03/14/2024 ESTGFR 10 (L) 03/14/2024 Lab Results Component Value Date ALT 17 03/14/2024 AST 14 03/14/2024 ALKPHOS 139 (H) 03/14/2024 BILITOT <0.2 (L) 03/14/2024 BILIDIR 0.1 03/13/2024 ALBUMIN 3.0 (L) 03/14/2024 PROT 5.4 (L) 03/14/2024 Lab Results Component Value Date HA1C 8.4 (H) 03/13/2024 Review Of Systems: + chills, sweats, fatigue, fever Neuro: +confusion yesterday per CV: Denies CP, SOB GI: + nausea and vomiting prior to arrival : Denies voiding issues Diet: + loss of appetite Wound care: by nursing, at home to help Leg fatigue, calf cramping, skin itching: - Neuropathy: + Pain: +increased FBS today 165 today in visit reports BS 510 yesterday and 34 this am PE: BP (!) 164/98 (BP Location (NBP): Right arm, Patient Position: Sitting, BP Cuff Sizes: Adult (25-34cm)) Pulse 86 Temp (!) 39.2 ??C (102.6 ??F) (Oral) SpO2 97% General: pleasant,ill appearing. Arrive with remi Mobility: slide to chair Edema: 2+ right foot DP, PT pulses + dopper bilaterally Odor: + reports present last few days Skin warm to touch Wound 04/20/24 04/04/24 Measurement (Initial) 03/09/24 Wound bed/ Thickness Periwound Drainage Odor Debridement Primary Dressing Secondary Dressing Left BKA Healed 20cm incision well approximated. Superficial open areas where sutures/remi removed. 20cm well approximated incision Full Incision with scattered crusts Mild erythema without warmth Light serous No Mechanical (irrigation/cleansing and gauze or wet-to-dry dressings) Mepilex foam non-border (foam), Aquaphor tape Right heel Not measured today 7.3cm x 6.7cm x >0.1m (true depth unknown) 6.6cm x 6.2cm x undetermined Full 85% black/brown eschar 10% white tissue 5% pink [place] with callus, dry skin Moderate serous No Surgical (sharps instrument or laser) [facility] Alginate (Alginate) ([place] HD SuperLite)Silicone Bordered Dressing Right second toe: Not assessed. notes healed. PHOTO taken today: Right medial heel Right posterior heel Right dorsal foot Right 2nd toe Right anterior LE Wound treatment: Cleansed wound with NS Minimal wound treatment today as Liz lopez was called due to patient presentation Assessment/ Plan: Gerson Bruner is a 58 y.o. 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 ABIs as noted above showing mild LEAD, right and Moderate LEAD, left. He was weak on arrival today and VS were obtained showing hypertension, tachypnea and febrile temperature. reports wound has been deteriorating over last 3 days with increased pain and increased odor to wound. He had an episode of confusion yesterday and his BG levelswere over 500. This am BG levels were 34. Patient oriented x3 today. Does endorse decreased appetite and episode of nausea with vomiting prior to arrival to clinic. Wound bed with continued black eschar with odor. Periwound with erythema and warmth. Patient's skin is hot to touch. Decision made to call Liz lopez as patient does appear to meet sepsis protocol. Liz lopez team arrived and took patient to ED via stretcher. He will RTC in 2-3 weeks once d/c from ED Plan: PROCEED TO ED VIA [facility] LOPE[facility] TEAM Wound care as above F/U Vascular next week post Angiogram PARCEL CARRIER Plan of Care: Patient to return to the wound center 1-3 times per week, over the next 10 weeks, for ongoing wound evaluation, conservative sharp debridement and treatment by RN as outlined below. Follow up: 2-3 weeks Wound care Instructions: Left BKA Change dressing every 2-3 days or sooner for 50% or greater strike through drainage. Remove old dressing. Cleanse wound with wound cleanser or normal saline and gauze. Cover wound bed with bordered gauze dressing or similar . Right heel Change dressing every 2-3 days or sooner for 50% or greater strike through drainage. Remove old dressing. Cleanse wound with wound cleanser or normal saline and gauze. Vashe soak to wound bed for 5-10 minutes Insert a piece of Medihoney Alginate into the wound bed. For shallow wounds, slightly overlap the wound area by ?? inch (1 cm). For deep or heavily exuding wounds, loosely pack and ensure that the dressing does not overlap the wound margins. Do not overfill or pack tightly. Cover wound bed with bordered gauze dressing or similar . Right second toe Change dressing every 2-3 days or sooner for 50% or greater strike through drainage. Remove old dressing. Cleanse wound with wound cleanser or normal saline and gauze. Cover wound bed with adhesive bandage . Keep covered to protect tissue Use silicone toe separator to relieve pressure to toe Additional Instructions: High Protein foods: try to eat 5-6 servings of these per day Beef, chicken, fish Beans, Lentils, peanut butter Luxembourger and regular yogurt Cheese, eggs Boost, Ensure shakes Protein powder in a smoothie of your choice Monitor for signs of infection which may include: Fever Sweats Chills Nausea, Vomiting or Diarrhea Unexplained increase in Blood Glucose levels At or around the wound site: Increased pain Swelling or edema Redness Warmth Purulent drainage (thick yellow/green drainage) Malodor Contact the [facility] with any above symptoms Wednesday- Wednesday 8:00AM-4:30PM ([phone]). If weekends / holidays / evenings, please report to the Emergency Department. Diabetic Foot Care DO NOT SMOKE! It decreases the blood supply to your feet. If you smoke, QUIT. If you have high blood pressure and/or high cholesterol, work with your health care provider to lower it. Never walk barefoot, neither indoors or outdoors. Examine your feet daily for redness, warmth, blisters, ulcers, scratches, cuts and nail problems from shoes or other sources. Look at the bottoms and between toes. Use a mirror or have someone else look for you. Call your doctor immediately if you experience any injury to your feet. Even a minor injury is an emergency for a patient at high risk. Examine your shoes for foreign objects, protruding nails and rough spots inside before putting themone. Look and feel. Buy shoes late in the day. Never buy shoes that need ???breaking in?? . They should be immediately comfortable. Request shoes with deep toe boxes and made of soft leather upper material. Lubricate your entire foot after bathing or if your skin is dry, but avoid putting cream between toes. Avoid Vaseline, petroleum jelly, mineral oil and baby oil. Diop???s wool may be used between toes. Diabetaderm is one good foot cream option. Do not soak your feet. Skin can break down and won???t heal well. Avoid direct heat (heating pads, hot water pads, electric blankets, radiator, fireplaces). You can burn your feet without knowing it. Water temperature should be less than 92 degrees. Estimate with your elbow or bath thermometer (You can get one in any store that sells infant products.) Don???t use any tape or sticky products such as corn plasters on your feet. The can tear your skin. Do not file, remove or shave calluses or corns yourself, unless instructed otherwise. These should be taken care of by your physician or truck driving instructor. Avoid using any chemical or strong antiseptic solutions on your feet. Iodine, salicylic acid, corn/callus removers may burn the skin. Wound care supplies ordered. Samples provided Cc: No referring provider defined for this encounter. PCP: Ken Greer MD documented in this encounter Plan of Treatment Not on file documented as of this encounter Procedures Procedure Name Priority Date/Time Associated Diagnosis Comments POCT GLUCOSE Routine 04/20/2024 3:39 PM EDT documented in this encounter Results * POCT Glucose (04/20/2024 3:39 PM EDT) Glucose, POC 165 65 - 199 mg/dL [facility] Comment: Supplemental ranges: <140 mg/dL before meals <180 mg/dL all other times of the day Blood 04/20/2024 3:39 PM EDT 04/20/2024 3:39 PM EDT Apurva Crowley APRN POINT OF CARE TE ST ORDERABLES [facility] [place] [address] documented in this encounter Visit Diagnoses Diagnosis Status post below knee amputation, left Diabetic ulcer of right heel associated with diabetes mellitus due to underlying condition, with other ulcer severity documented in this encounter Care Teams Boat Canvas Maker And Installer Relationship Specialty Start Date End Date Ken Greer MD PCP - General Family Medicine 12/30/23 05/15/24 documented as of this encounter
--- OUTSIDE RECORDS SUMMARY | 2024-12-05 12:36 | XMS_ITS | Encounter Summary ---
Author Organization [facility] [place] [place] [address] Care Team Providers Care Certified Alcohol Counselor Name Role Phone Ken Greer MD Primary Care Provider [phone] Encounter Details Date Type Department Care Team (Latest Contact Info) Description 04/20/2024 Travel Social History Tobacco Use Types Packs/Day Years Used Date Smoking Tobacco: Every Day Cigarettes Last attempted to quit: 12/26/2018 Smokeless Tobacco: Never Comments:smoking a few a day Alcohol Use Standard Drinks/Week Comments No 0 (1 standard drink = 0.6 oz pur e alcohol) [facility] Utilities Answer Date [...] place to sleep or slept in a retirement (including now)? No 02/20/2024 Housing Stability Vital [...] living in a retirement (including now)? No 04/21/2024 IPV Inpatient Questions [...] on filedocumented in this encounter Care Teams Certified Alcohol Counselor Relationship Specialty Start Date End Date Ken Greer MD PCP - General Family Medicine 12/30/23 05/15/24 documented as of this encounter
--- OUTSIDE RECORDS SUMMARY | 2024-12-05 12:36 | XMS_ITS | Encounter Summary ---
Author Organization [facility] [place] [address] Care Team Providers Care Content Writer Name Role Phone Ken Greer MD Primary Care Provider [phone] Reason for Visit * Reason Comments Foot Pain * Auth/Cert (Routine) Specialty Diagnoses / Procedures Referred By Conteben t Referred To Contact Diagnoses Non healing left heel wound Sepsis with acute organ dysfunction, due to unspecified organism, unspecified organ dysfunction type, unspecified whether septic shock present Kristi Renae MD [facility] [place] [address] [facility] Referral ID Status Reason Start Date Expiration Date Visits Re quested Visits Authorized [id number] 1 1 Encounter Details Date Type Department Care Team (Late st Contact Info) Description 04/21/2024 5:29 PM EDT - 04/21/2024 7:06 PM EDT Surgery [place] [id number] Janet Carrington MD [facility] [place] [address] DEBRIDEMENT SKIN AND SUBCU, LOWER EXTREMITY (WRVU 1.01) Social History Tobacco Use Types Packs/Day Years Used Date Smoking Tobacco: Every Day Cigarettes Last attempted to quit: 12/26/2018 Smokeless Tobacco: Never Comments:smoking a few a day Alcohol Use Standard Drinks/Week Comments No 0 (1 standard drink = 0.6 oz pur e alcohol) [facility] Utilities Answer Date Recorded In [...] place to sleep or slept in a long term (including now)? No 02/20/2024 Housing Stability Vital Sign Answer Lon e Recorded In the last 12 months, was t here a time when you were not able to pay the mortgage or rent on time? No 04/21/2024 In the past 12 months, how m any times have you moved where you were living? 1 04/21/2024 At any time in the past 12 m [facility], were you homeless or living in a long term (including now)? 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 His BKA [...] Operations/Major Procedures: 02/20: Left BKA on 02/21/24 ([place]) 04/11: Right SFA angioplasty, Right SFA DCBA, Right PT angioplasty ([place]) Hospital Course: Patient admitted to Vascular Surgery [...] TIA, and severe vascular disease [facility] sepsis due to Right heel infection s/p [...] (H) 04/29/2024 Discharge Condition: stable Discharge to: [facility] [address] [place] [address] Future Appointments and Orders Future Appointments and Orders Future Appointments Provider Department Dept Phone 05/16/2024 3:30 PM Jigna Freire APRN Vascular Surgery at [facility] Arrive at: [employer] [phone] Future Orders Complete By Expires Referral to Home Health [REF34 Custom] As directed Process Instructions: If no progress note charted, please enter Clinical details in comments. Scheduling Instructions: Comments: Please evaluate Gerson Bruner for admission to Home [facility]. [address] [facility] [address] (home) Date of : 1965 Inpatient DOCUMENTATION FOR VNA SERVICES (INCLUDING THOSE PATIENTS WITH MEDICARE COVERAGE REQUIRING HOME VNA SERVICES AND/OR HOSPICE SERVICES) PATIENT'S LOCATION: Gerson Bruner [address] [facility] [place] [address] (home) Cell: Telephone Information: Pinion Polisher's Name: Xander In discussion with the attending physician, it is certified that this patient is under their care and that they, or a Nurse Practitioner, Clinical Nurse specialist or Physician Diabetes Solutions Specialist who is working directly with them, had [...] managing ADLs. [facility] [address] [place] [address] START OF CARE: within 24-48 hours of [...] MD [address] / [place] [address] . All A agencies which cover the area of patient's [...] For any problems or questions please call [phone] For issues on weeknights after 5pm and weekends please call [phone] and ask for the Vascular Fellow director zone. Ruby Mcgill APRN * Shruthi Quan MD [...] Shruthi Quan MD Vascular Fellow PGY6, pager [phone] documented in this encounter Discharge Instructions * [...] For any problems or questions please call [phone] For issues on weeknights after 5pm and weekends please call [phone] and ask for the Vascular Fellow director zone. 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 Bathroom Set-up: walk in shower, [...] plan as stated. Time IN / OUT: 5714-8708 Total Minutes, Physical Therapy: 22 Angely Gomez PT , DPT Pager: [phone] Physical Therapy Inpatient Rehabilitation Department * Donavon [...] this time. See Doc flow for assessment. Dongsun Meagn RN * Felton Lugo MD - 04/29/2024 10:52 AM EDT Hypertension/Nephrology Inpatient Follow-up Gerson Bruner [id number] 1965 ID: 58 y.o. 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 Service Now Developer unable to meet with Pt, Pt's chart [...] unless consulted in the interim. Maicol Dumont, Tax Examining Technician * Ismael Menchaca MD - 04/28/2024 2:37 [...] his meal. 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 Renu Gil APRN [facility] Endocrinology Diabetes Management Pager [phone] * Shruthi Quan MD - 04/27/2024 2:37 PM EDT Vascular Surgery Progress Note Patient ID Gerson Bruner is a 58 y.o. 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 ([place]) and right SFA/PT angioplasty 04/11/24 who presented [...] or concerns He has a chair at [facility] (his regular dialysis unit) and was trying [...] dialysis from 12K to 16K C/w sevelamer [id number] TIDWM Renal diet Start lisionpril 10 mg PO daily C/w Cholecalciferol 1000 units daily MEDICATIONS: insulin lispro 1-6 Units Subcutaneous Q4H [facility] insulin glargine (Lantus;Semglee) (100 unit/mL) subcutaneous injection 20 Units Subcutaneous Daily sevelamer carbonate 1,600 mg Oral TID lidocaine 1 patch Transdermal Q24H insulin lispro 1-10 Units Subcutaneous TID dilTIAZem 30 mg Oral Q6H [facility] sodium chloride 0.9 % (flush) 5 mL Intravenous BID heparin (porcine) 5,000 Units Subcutaneous 2 times per day acetaminophen 975 mg Oral Q6H [facility] aspirin EC 81 mg Oral Daily atorvastatin [...] MD 04/27/2024 Acute Pain Medicine Service Pager: [phone] * Elle Finn RN - 04/26/2024 10:13 PM EDT Patient was transferred from [facility] to [facility] @215. With AMbit pump on the right thigh intact. This RN oriented patient to new room, to staff and to use of call mitchell system. Bed alarm on. Call mitchell within reach * Zandra Tucker PT - 04/26/2024 2:45 PM EDT Physical Therapy Evaluation Patient profile: Gerson Bruner is a 58 y.o. male admitted on 04/20/[address] Kristi Renae MD.Per MD note, Gerson Bruner is a 58 y.o. [...] Dialysis yesterday am which he tolerated well (/W/F schedule) - OR yesterday and did well [...] SUBCU, LOWER EXTREMITY (WRVU 1.01) performed by Jaent Carrington MD at [facility] MAIN OR VS ARTERIOGRAM LOWER EXTREMITY VASCULAR SURGERY 04/11/2024 VS Arteriogram Lower Extremity Vascular Surgery 04/11/2024 Kristi Renae MD [facility] RAD Active Non-Hospital Problems Diagnosis [...] is currently applying to be his time study clerk caregiver and will be able to assist him time study clerk as needed. 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 Prior vascular history 02/20: Left BKA on 02/21/24 ([place]) 04/11: Right SFA angioplasty, Right SFA DCBA, Right PT angioplasty ([place]) Operations This Hospitalization 04/21/2024: Right through ankle [...] Renae MD [facility] Social History: Patient lives with his and cat in a walk out lower level of his brother's home. He reported heis building a house, but it is not complete. Pt is unable to access the main level of his brother'shome. has filled out paperwork to be Pt's time study clerk caregiver. Home Setup: Bathroom has a walk [...] at wheelchair level at the sink at [facility]. Pt will complete toileting routine including transfer, clothing management, and hygiene at [facility]. Pt will complete sponge bathing/showering routine seated in the bathroom with supervision assist. Pt will complete LB dressing with at [facility] using AE/compensatory strategies as needed. Pt will complete functional transfers at [facility] for increased participation in (I)ADLs. Pt [...] and measurable assessment of functional outcome. Pager: [phone] Dayana Jordan OT 04/27/2024 Occupational Therapy Rehabilitation Department * Ruby Villareal MD - 04/26/2024 1:07 PM EDT NEPHROLOGY PROGRESS NOTE Patient seen at dialysis. Clinical and laboratory data reviewed. Stable treatment. No issues with dialysis or access. Patient was not examined because he was repeatedly yelling and cursing at this account underwriter. He was complaining about pain. I asked [...] the response. Ruby Villareal MD Nephrology Pager: [phone] * Shruthi Quan MD - 04/26/2024 11:08 AM EDT Vascular Surgery Progress Note Patient ID Gerson Bruner is a 58 y.o. 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 Prior vascular history 02/20: Left BKA on 02/21/24 ([place]) 04/11: Right SFA angioplasty, Right SFA DCBA, Right PT angioplasty ([place]) Operations This Hospitalization 04/21/2024: Right through ankle amputation ([facility]) 04/25/2024: Right completion above knee amputation ([place]) [...] Artery 190 Dorsalis Pedis (Ankle) Artery >240 Edgar-Biphasic Posterior Tibial (Ankle) Artery >240 Monophasic Great [...] insulin- dependent T2DM and ESRD on HD ([facility]), TIA (2018, thought to be secondary to small vessel disease), well known to the Vascular Surgery Service s/p 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 ([place]) and right SFA/PT angioplasty 04/11/24 who presented [...] MD Vascular Surgery 04/26/24 [id number] * Renu Gil Tram, COMMUNITY REINVESTMENT ACT OFFICER - 04/26/2024 6:53 AM EDT Follow Up [...] carb control level 2 Renu Gil APRN [facility] Endocrinology Diabetes Management Pager [phone] * Jean Henning MD - 04/25/2024 9:37 [...] 2.5 - 4.5 mg/dL Type and screen ([facility]/CGP/CHASE) Result Value Ref Range ABORH Type A POSITIVE Patient BB History Found Expires at 2359 on: 04/28/2024 Ab Screen Interp Negative ABORH Recheck Status Result Value Ref Range ABORH Type Recheck Completed Type and Screen Validity Result Value Ref Range T&S only valid at [facility] Hosp POCT Glucose Result Value Ref Range [...] mcL Appearance UA Turbid (A) Clear Spec Grassflat UA 1.022 1.005 - 1.030 Color UA [...] review, plan is for patient to go tothe OR today for secondary BKA closure. Will defer physical therapy evaluation today because of this, however will continue to follow and see once medically appropriate/available. Appreciate any updated activity orders/precautions. Zandra Tucker PT, Doctor of Physical Therapy Pager: [phone] Physical Therapy Inpatient Rehabilitation Department * Ruby [...] with meals. Ruby Villareal MD Nephrology Pager: [phone] * Renu Gil APRN - 04/25/2024 6:44 [...] carb control level 2 Renu Gil APRN [facility] Endocrinology Diabetes Management Pager [phone] * Munira Jorge MD - 04/25/2024 5:56 AM EDT Vascular Surgery Progress Note Patient ID Gerson Bruner is a 58 y.o. 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 His BKA [...] vascular history 02/20: Left BKA on 02/21/24 ([place]) 04/11: Right SFA angioplasty, Right SFA DCBA, Right PT angioplasty ([place]) Operations This Hospitalization none Active Hospital Problems [...] on Tuesday 04/24. Patient's routine HD is M//. 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 His BKA [...] vascular history 02/20: Left BKA on 02/21/24 ([place]) 04/11: Right SFA angioplasty, Right SFA DCBA, Right PT angioplasty ([place]) Operations This Hospitalization none Active Hospital Problems [...] Daily insulin lispro 1-6 Units Subcutaneous Q4H [facility] insulin lispro 1-10 Units Subcutaneous TID dilTIAZem 30 mg Oral Q6H [facility] sodium chloride 0.9 % (flush) 5 mL Intravenous BID heparin (porcine) 5,000 Units Subcutaneous 2 times per day acetaminophen 975 mg Oral Q6H [facility] aspirin EC 81 mg Oral Daily atorvastatin [...] Artery 190 Dorsalis Pedis (Ankle) Artery >240 Edgar-Biphasic Posterior Tibial (Ankle) Artery >240 Monophasic Great [...] Service 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 His BKA [...] with meals. Ruby Villareal MD Nephrology Pager: [phone] * Chica, Ed - 04/23/2024 4:00 PM EDT Heel Attacher Encounter Note Patient Name: Gerson Bruner : [id number] MR#: [id number] Admit Date: 04/20/2024 4:43 PM Hospital Day 3 days Narrative:Visited to introduce and assess acceptance of Heel Attacher services. Assessment: Patient was awake, alert, oriented [...] Outcome:Provided emotional, spiritual support and listening presence. Heel Attacher services accepted. Conversation to build trusting relationship. 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 His BKA [...] vascular history 02/20: Left BKA on 02/21/24 ([place]) 04/11: Right SFA angioplasty, Right SFA DCBA, Right PT angioplasty ([place]) Operations This Hospitalization none Active Hospital Problems [...] Artery 190 Dorsalis Pedis (Ankle) Artery >240 Edgar-Biphasic Posterior Tibial (Ankle) Artery >240 Monophasic Great [...] QPM insulin lispro 1-4 Units Subcutaneous Q4H [facility] pantoprazole EC 40 mg Oral Daily pregabalin [...] Artery 190 Dorsalis Pedis (Ankle) Artery >240 Edgar-Biphasic Posterior Tibial (Ankle) Artery >240 Monophasic Great [...] insulin- dependent T2DM and ESRD on HD ([facility]), TIA (2018, thought to be secondary to small vessel disease), well known to the Vascular Surgery Service 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 His BKA [...] week. Kristi Renae MD * Dariana Albarado, COMMUNITY REINVESTMENT ACT OFFICER - 04/22/2024 10:45 AM EDT PATIENT: Gerson [...] 94 % STUDIES: Labs: CBC: Recent Labs 04/22/24 0436 04/21/24 1624 04/20/24 2332 WBC 15.0* 19.8* 17.1* HGB 8.5* 9.4* 8.9* PLATELET 328 348 340 Chemistry: Recent Labs 04/22/2443504/21/24 1624 04/20/24 2332 NA 138 137 132* K 5.3* 4.6 5.1* CL 99 97* 95* CO2 22 21* 23 BUN 39* 32* 42* CREATININE 6.97* 5.70* 7.05* GLUCOSE 195 142 185 Recent Labs 04/22/24 0436 04/21/24 1624 04/20/24 [...] Dariana Albarado APRN Section of Nephrology Pager [phone] Associated attestation - Gisele Mosqueda MD - 04/22/2024 4:17 PM EDT I have seen and examined Mr Bruner on hemodialysis in the acute dialysis unit, reviewed the relevantclinical and laboratory data and images and discussed the case with Melissa Morrow MARKETING ACCOUNT MANAGER. Her Megan Guzman MARKETING ACCOUNT MANAGER. Her note represents our jointly formulated assessment [...] or nausea. 2024: Pt transported back to [facility]. Spouse and mother at bedside. 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 His BKA [...] Operations/Major Procedures: 02/20: Left BKA on 02/21/24 ([place]) 04/11: Right SFA angioplasty, Right SFA DCBA, Right PT angioplasty ([place]) Review of Systems: General: Endorses fevers, chills, [...] Kaye Gibbs MD at [facility] ENDOSCOPY VS ARTERIOGRAM LOWER EXTREMITY VASCULAR SURGERY 04/11/2024 VS Arteriogram Lower Extremity Vascular Surgery 04/11/2024 Kristi Renae MD [facility] RAD Social History: Social History [...] 04/20/2024 5:44 PM) Result Value WORKSTATION ID [id number] Impression Borderline size of the heart. Mild pulmonary vascular congestion without overt edema. No effusion. Thank you for letting us participate in the care of this patient. If you are a health care provider and have any questions regarding this report, please contact the number below. For patients who have questions please contact the health day care home mother that requested your imaging first. Electronically signed by: Ludmila Shea MD, [facility] ([phone]), at 04/20/2024 6:31 PM XR Foot Min 3 views Right (Generic) (Exam End: 04/20/2024 5:44 PM) Result Value WORKSTATION ID [id number] Impression Known wound at the heel of the right foot. No discrete evidence of osteomyelitis within the limitation of radiography. Thank you for letting us participate in the care of this patient. If you are a health care provider and have any questions regarding this report, please contact the number below. For patients who have questions please contact the health day care home mother that requested your imaging first. Electronically signed by: Ludmila Shea MD, [facility] ([phone]), at 04/20/2024 6:28 PM XR Ankle Min 3 views Right (Generic) (Exam End: 04/20/2024 5:44 PM) Result Value WORKSTATION ID [id number] Impression Known wound at the heel of the right foot. No discrete evidence of osteomyelitis within the limitation of radiography. Thank you for letting us participate in the care of this patient. If you are a health care provider and have any questions regarding this report, please contact the number below. For patients who have questions please contact the health day care home mother that requested your imaging first. Electronically signed by: Ludmila Shea MD, [facility] ([phone]), at 04/20/2024 6:28 PM Vascular Labs: MELLY - legs 02/18/24 Right Pressure (mm Hg) Waveform TBI Brachial Artery 190 Dorsalis Pedis (Ankle) Artery >240 Edgar-Biphasic Posterior Tibial (Ankle) Artery >240 Monophasic Great [...] ppx Nikky Rao MD Vascular Surgery Pager: [phone] documented in this encounter Nursing Notes * [...] T waves ED Course as of 04/20/242001 Viridiana Apr 20, 20248 WBC(!): 18.4 1818 Potassium(!): 5.5 XR Chest [...] who have questions please contact the health day care home mother that requested your imaging first. Foot Min [...] who have questions please contact the health day care home mother that requested your imaging first. Electronically signed by: Ludmila Shea MD, [facility] ([phone]), at 04/20/2024 6:28 PM XR Ankle Min [...] who have questions please contact the health day care home mother that requested your imaging first. Electronically signed by: Ludmila Shea MD, [facility] ([phone]), at 04/20/2024 6:28 PM Patient has exception [...] wound who presents to the Emergency Depar tme with 2 to 3 days of worsening [...] at triage. Pt escorted to room by [facility]. Pau Burt APRN 04/20/24 1646 documented in [...] this afternoonas he wanted to go home. Service Now Developer paged team twice and the Chemist came to speak with patient. Xander wasvery frustrated as the thought he was going to go home after the pain pump was out. He decided that he wanted to go home AMA. Chemist was getting the form and account underwriter spoke with patient and spouse called his daughter. Xander ultimately decided to stay as he would not get pain medications if he left AMA. Xander is feeling very out of control of all the things in his life and missed his anniversary yesterday and the fourth april. He was teary and feels that he is going crazy in the hospital as he enjoys being outside and in the shields. Service Now Developer spoke with the team and they want [...] will be able to discharge home tomorrow. Service Now Developer was clear with Xander and spouse that discharge is dependent on good pain control and safe transfers. Xander apologetic about his outburst as, I am not a bad elena, but people must hate me for acting like this. Service Now Developer let Xander know that staff understand how [...] Impairment (Lower Extremity Amputation) Goal: Optimal Mobility [place] and Safety Outcome: Ongoing (Interventions Implemented as [...] HD Facility Notified of Discharge Plan Location: [facility] HD Chair Confirmed: 0 HD ChairDetails: MWF 0600 Home Health Services: Registered Nurse Agency Referrals: Soham Sepulveda and [facility] Transportation: family or friend will provide *Spouse Melissa [phone] Barriers to discharge: Discharge planning *[facility] MWF 0600, and [facility] restart referrals opened 04/21 Plan going forward: Called and spoke with patient regarding PT/OT evaluation and recommendations for discharge. Patient is declining going to rehab both acute and SNF at this time. He stated that hiswife is his 17/05 caregiver, sister is PATIENT SERVICES MANAGER and mother willing to help manage things [...] Impairment (Lower Extremity Amputation) Goal: Optimal Mobility [place] and Safety Outcome: Ongoing (Interventions Implemented as [...] Impairment (Lower Extremity Amputation) Goal: Optimal Mobility [place] and Safety Outcome: Ongoing (Interventions Implemented as [...] Discussed with Dr. Welsh. Nina Vides PGY-4 [facility] Endocrine Fellow. I have been in the [...] juice. Agreed to have pudding 0430~ APS director zone provider was paged and came to bedside [...] Impairment (Lower Extremity Amputation) Goal: Optimal Mobility [place] and Safety Outcome: Ongoing (Interventions Implemented as [...] Impairment (Lower Extremity Amputation) Goal: Optimal Mobility [place] and Safety Outcome: Ongoing (Interventions Implemented as [...] MD 04/26/2024 Acute Pain Medicine Service Pager: [phone] * Consult Note - Simón Ponce RN [...] HD Facility Notified of Discharge Plan Location: [facility] HD Chair Confirmed: 0 HD ChairDetails: MWF 0600 Home Health Services: Registered Nurse Agency Referrals: MICHELLE Russell for dialysis Transportation: family or friend will provide *Spouse Melissa [phone] Barriers to discharge: Discharge planning *[facility] MWF 0600, and [facility] restart referrals opened 04/21 Plan going forward: Pain management, PT/OT eval. Dressing down on 04/29. Homecare and dialysis routedpending update PT/OT eval. For further discharge planning Care Management will continue to follow and assist with discharge planning and coordination of care as indicated. Anticipated Date of Discharge: 05/01/2024 Mariam Dean RN, BSN * Plan of Care - Myranda [...] Impairment (Lower Extremity Amputation) Goal: Optimal Mobility [place] and Safety Outcome: Ongoing (Interventions Implemented as [...] Cohen MD - 04/25/2024 5:59 PM EDT [facility] Operative Note Patient Name: Gerson Bruner : [id number] MR#: [id number] Case Date: 04/25/2024 Surgeon: Surgeons and Role: [...] longstanding insulin-dependent T2DM and ESRD on HD ([facility]), TIA (2019, thought to be secondary to small vessel disease), well known to the Vascular Surgery Service 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 His BKA [...] veins was controlled by oversewing in a feioqx-be-svmrq fashion with 3-0 silk.The tibia was circumferentially [...] veins was controlled by oversewing in a qkkikl-xo-xredk fashion with 3-0 silk. Redundant subcutaneous tissueon the posterior flap was removed with the amputation knife. Hemostasis was then achieved by use zogdsnft-uy-xqbae stitches. We then used interrupted 2-0 Vicry [...] Impairment (Lower Extremity Amputation) Goal: Optimal Mobility [place] and Safety Outcome: Ongoing (Interventions Implemented as [...] HD Facility Notified of Discharge Plan Location: [facility] HD Chair Confirmed: 0 HD ChairDetails: MWF 0600 Home Health Services: Registered Nurse Agency Referrals: Soham Sepulveda Transportation: family or friend will provide *Spouse Melissa [phone] Barriers to discharge: Discharge planning *[facility] MWF 0600, and [facility] restart referrals opened 04/21 [...] Impairment (Lower Extremity Amputation) Goal: Optimal Mobility [place] and Safety Outcome: Ongoing (Interventions Implemented as [...] brought him banana bread, soup and lasagna. Service Now Developer did educate Xander on being careful with what he eats so his BG doesn't go too high. Xander was a bit frustrated and insisted that if we would just give him what he takes at home he will be fine. Service Now Developer explained about the ordersets and how it [...] Impairment (Lower Extremity Amputation) Goal: Optimal Mobility [place] and Safety 04/23/2024 1526 by Sofy Ross [...] with PMH significant for T2DM, ESRD on HD(), TIA (2018), s/p Left BKA on 02/21/24 and right SFA/PT angioplasty 04/11/24, who was admitted on 04/20/2024 currently being treated for RLE wound s/p R BKA. We are being consulted to assist with diabetes management and to provide a [place] [facility]. Diabetes History: Gerson Bruner has [...] communicated with the team. Peter Colvin MD [facility] Endocrinology PGY-5, Fellow Pager #[phone] Associated attestation - Eriberto Shabazz MD - [...] Impairment (Lower Extremity Amputation) Goal: Optimal Mobility [place] and Safety Outcome: Ongoing (Interventions Implemented as [...] OUTCOME SUMMARY: Patient restless this morning when account underwriter came on shift. VSS, except pain- see MAR for interventions. Service Now Developer noted that Xander's O2 was going down to low 80s and encouraged him to take some deep breathsand explained the need to place him on O2. Xander rather frustrated and stated multiple times throughout the day that is just what his body does and that he is fine. Service Now Developer continued education with patient and spouse when [...] chest pain during shift O: NSR from [id number], then went into AFIB with RVR until [...] Impairment (Lower Extremity Amputation) Goal: Optimal Mobility [place] and Safety Outcome: Ongoing (Interventions Implemented as [...] Appropriate) * Consult Note - Graeme Younger [facility] - 04/22/2024 1:43 PM EDT Clinical Pharmacist Note-Vanc Gerson Bruner [id number] Gerson Bruner is a 58 y.o. [...] have. Alternately, during off-hours you may call [phone] to contact a pharmacist. Graeme Younger RPH Pager: [phone] * Consult Note - Sharri Sparks MD - 04/22/2024 12:23 PM EDT Images from the original note were not included. [facility] [place] [address] [address] INPATIENT CARDIOLOGY CONSULT NOTE Hospital Day 2 days Reason for Consult: atrial fibrillation Active Problems: Active Hospital Problems Diagnosis Non healing left heel wound Resolved Hospital Problems No resolved problems to display. HPI: Gerson Bruner is a 58 y.o. male with a history of IDDM, ESRD, TIA, and severe vascular disease whopresents to [facility] with worsening of his right heel wound [...] diagnosed with it ~1 year ago at [facility]. Unfortunately due to medication reconciliation [...] Kaye Gibbs MD at [facility] ENDOSCOPY VS ARTERIOGRAM LOWER EXTREMITY VASCULAR SURGERY 04/11/2024 VS Arteriogram Lower Extremity Vascular Surgery 04/11/2024 Kristi Renae MD [facility] INTERVENTIONL RAD Allergies Allergen Reactions Clindamycin [...] Surgical Unit Level [address] [facility] Admission (Discharged) from 04/11/2024 in Intermediate [...] TIA, and severe vascular disease [facility] sepsis due to Right heel infection s/p [...] Dr. Anderson, attending physician. Sharri Sparks MD Spa Experience Coordinator Associated attestation - Rhea Anderson MD - [...] Impairment (Lower Extremity Amputation) Goal: Optimal Mobility [place] and Safety Outcome: Ongoing (Interventions Implemented as [...] Chemistry: Recent Labs 04/21/24 1624 04/20/24 2332 04/20/247 NA 137 132* 132* K 4.6 5.1* [...] Dariana Albarado APRN Section of Nephrology Pager [phone] Associated attestation - Jordan Sepulveda MD - [...] RN - 04/21/2024 5:15 PM EDTSummary: [facility]; [facility] restart referrals Office of Care Management Initial Assessment Lopez Herrera RN reviewed record and discussed patient with Care Team. Source of Information: Chart Review (Patient is in the OR. Unable to reach spouse/DPOAH Melissa Tang mobile [phone]. [facility] 03/14/24 RNCM Initial Assessment.) Admitted From: Home Reason for Hospitalization: 58 y.o. 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 His BKA [...] DPOA-HC?: Spouse (DPOA1 is spouse Melissa Bruner [phone]; DPOA2 is daughter Lata Bruner [phone]) Current Coping/Education/Information Needs: Needs assessment Current Functional [...] or living in a long term (including now)?: No In the past 12 [...] comments) (Off-loading boot) Home Address listed as: [facility] [address] Social & Family Supports: Extended Emergency Contact Information Primary Emergency Contact: Melissa Bruner Address: [place] [address] [facility] Mobile Relation: Spouse Current Care Provided by: self, spouse/significant other Provides Primary Care For: no one Caregiver if needed: spouse Quality of Family relationships: helpful, involved Community Resources being provided currently: clinic(s), homecare agency, outpatient hemodialysis (Receives primary care at [facility] ([place]); current [facility] client; current [facility] hemodialysis M/W/ 0600 client) Behavioral Health [...] to assess Prescription Coverage: Yes Preferred Pharmacy: [id number] - [place], [place] - [address] [facility] [address] [facility] [address] [place], [place] - [address] [facility] [address] [facility] [address] [place] Status: Patient is a : No Primary Care Provider listed: Ken Greer MD [phone] Patient/Caregiver Goals of Treatment: Wound care Potential Needs for Transition of Care: home health care Agency Referrals: [facility] [address] [place] [address] P: [phone] F: [phone] [facility] [address] [place] [address] Transportation: no concerns Transportation Anticipated: family or friend will provide (Spouse Melissa [phone]) Concerns to be Addressed: discharge planning Assessment: Patient is admitted to Vascular Surgery service for non healing left heel wound. Plan going forward: Care Management team will continue to follow and assist with discharge planing and coordination of care as indicated. * Op Note - Nestor Pool MD - 04/21/2024 4:59 PM EDT [facility] Operative Note Patient Name: Gerson Bruner : [id number] MR#: [id number] Case Date: 04/21/2024 Surgeon: Surgeons and Role: [...] with hemostats and ligated using 3-0 silk meakzk-kd-guwbp sutures. Additional hemostasis was obtained with Bovie [...] Appropriate) * Plan of Care - Paco Castro, RN - 04/21/2024 5:38 AM EDT Pt arrived to unit ~0020, oriented to room. Pt slid self from stretcher to bed. A&Ox3-4, occasionally disoriented to time. [place]. 2L NC. Pt reporting 06/03 pain to [...] PATHOLOGY REPORT Routine 04/25/2024 5:01 PM EDT EKG 12-LEAD STAT 04/25/2024 12:38 PM EDT [...] 04/21/2024 5:07 PM EDT Amputation Ankle-Tib/Fib [place] (30611) 04/21/2024 4:38 PM EDT right heal wound Debridement, Skin, Sub-Q Tissue ([id number]) 04/21/2024 4:38 PM EDT right heal wound [...] Glucose, POC 234(H) 65 - 199 mg/dL [facility] Comment: Supplemental ranges: <140 mg/dL before meals <180 mg/dL all other times of the day Blood 04/29/2024 11:5 3 AM EDT 04/29/2024 11:53 AM EDT Kristi Renae MD POINT OF CARE TEST O CARMELITA Performing Organization Address [facility]/ZIP Co de Phone Number [facility] [place] [address] * POCT Glucose (04/29/2024 7:58 AM EDT) Glucose, POC 190 65 - 199 mg/dL [facility] Comment: Supplemental ranges: <140 mg/dL before meals <180 mg/dL all other times of the day Blood 04/29/2024 7:58 AM EDT 04/29/2024 7:58 AM EDT Kristi Renae MD POINT OF CARE TEST O CARMELITA [facility] [place] [address] * (ABNORMAL) Differential, Automated (04/29/2024 6:20 AM EDT) Pathologist [facility] Neutrophil % 53.9 % [facility] Neutrophil Absolute 4.67 1.70 - 6.10 x10(3)/ L [facility] Lymph % 27.5 % [facility] Lymphocytes Abs 2.4 0.9 - 3.2 x10(3)/ L [facility] Monocyte % 12.9 % [facility] Monocyte Abs 1.1(H) 0.3 - 0.9 x10(3)/[facility] Eos % 4.4 % [facility] Eosinophils Abs 0.4 0.0 - 0.4 x10(3)/[facility] Basophil % 0.8 % [facility] Baso Absolute 0.1 0.0 - 0.1 x10(3)/[facility] Immature Gran % 0.50 % [facility] Comment: Immature granulocytes(IG's)percentage and absolute count will include metamyelocytes, myelocytes, and promyelocytes. Blood smears from CBCs yielding IG's will be scanned manually for concordance. If this scan disagrees with the automated IG or if promyelocytes are noted, a manual differential will be performed. Immature Gran Absolute 0.04 0.00 - 0.04 x10(3)/ L [facility] Blood 04/29/2024 6:20 AM EDT 04/29/2024 6:43 AM EDT Narrative Resulting Agency Comment Spec In Lab Russell Cohen MD HEMATOLOGY ORDER FRANSISCO [facility] [place] [address] * (ABNORMAL) Hemogram (04/29/2024 6:20 AM EDT) White Blood Cell 8.7 4.0 - 9.5 x10(3)/mc L [facility] Red Blood Cell 3.09(L) 4.58 - 5.54 x10(6)/mc L [facility] Hemoglobin 8.8(L) 13.7 - 16.5 g/dL [facility] Hematocrit 28.5(L) 40.5 - 48.5 % [facility] Mean Cell Volume 92.2 82.9 - 93.[address] [facility] Mean Cell Hemoglobin 28.5 27.5 - 32.[address] [facility] Mean Cell Hemoglobin Concentration 30.9(L) 32.0 - 35.7 g/dL [facility] Platelet 438(H) 145 - 357 x10(3)/ L [facility] RDW Standard Deviation 56.5(H) 36.0 - 45.0 [facility] RDW coefficient of variation 17.0(H) 11.4 - 13.8 % [facility] Mean Platelet Volume 11.1 7.6 - 12.[address] [facility] NRBC% auto 0.0 % [facility] NRBC Absolute 0.000 0.000 - 0.000 x10(3)/ L [facility] Blood 04/29/2024 6:20 AM EDT 04/29/2024 6:43 AM EDT Narrative Resulting Agency Comment Spec In Lab Russell Cohen MD HEMATOLOGY ORDER FRANSISCO [facility] [place] [address] * (ABNORMAL) Basic Metabolic Panel (non-fasting) (04/29/2024 6:20 AM EDT) Pathologist [facility] Glucose 235(H) 65 - 199 mg/dL [facility] Comment:Diabetes: >=200 mg/d L plus symptoms Blood Urea Nitrogen 33(H) 10 - 20 mg/dL [facility] Creatinine 6.41(H) 0.80 - 1.50 mg/dL [facility] Comment:result rechecked-tmp Sodium 138 135 - 145 mmol/L [facility] Potassium 5.3(H) 3.5 - 5.0 mmol/L [facility] Comment: Please note: ??Patients with WBC >100,000 may have falsely elevated Potassium levels. ??For accurate Potassium quantification in these patients send serum separator tube (gold top) for subsequent determinations. ??Contact the Clinical Chemistry Laboratory if there are any questions. Chloride 100 98 - 107 mmol/L [facility] Carbon Dioxide 24 22 - 31 mmol/L [facility] Anion Gap 14 5 - 15 mmol/L [facility] Calcium 9.4 8.5 - 10.5 mg/dL [facility] Est Glomerular Filtration Rate 9(L) >=60 mL/min/1. 73 m?? [facility] Comment: This patient's estimated GFR [...] In Lab Kristi Renae MD CHEMISTRY ORDERABLES [facility] [place] [address] * (ABNORMAL) Phosphorus (04/29/2024 6:20 AM EDT) Phosphorus 6.2(H) 2.5 - 4.5 mg/dL [facility] Blood 04/29/2024 6:20 AM EDT 04/29/2024 6:43 AM EDT Narrative Resulting Agency Comment Spec In Lab Kristi Renae MD CHEMISTRY ORDERABLES Performing Organization Address [facility] Co de Phone Number [facility] [place] [address] * Magnesium (04/29/2024 6:20 AM EDT) Magnesium 0.90 0.69 - 1.07 mmol/L [facility] Blood 04/29/2024 6:20 AM EDT 04/29/2024 6:43 AM EDT Narrative Resulting Agency Comment Spec In Lab Kristi Renae MD CHEMISTRY ORDERABLES Performing Organization Address [facility] Co de Phone Number [facility] [place] [address] * (ABNORMAL) POCT Glucose (04/29/2024 5:23 AM EDT) Glucose, POC 247(H) 65 - 199 mg/dL [facility] Comment: Supplemental ranges: <140 mg/dL before meals <180 mg/dL all other times of the day Blood 04/29/2024 5:23 AM EDT 04/29/2024 5:23 AM EDT Kristi Renae MD POINT OF CARE TEST O RDERABLES Performing Organization Address [facility] Co de Phone Number [facility] [place] [address] * (ABNORMAL) POCT Glucose (04/28/2024 10:57 PM EDT) Glucose, POC 206(H) 65 - 199 mg/dL [facility] Comment: Supplemental ranges: <140 mg/dL before meals <180 mg/dL all other times of the day Blood 04/28/2024 10:5 7 PM EDT 04/28/2024 10:57 PM EDT Kristi Renae MD POINT OF CARE TEST O CARMELITA [facility] [place] [address] * POCT Glucose (04/28/2024 8:28 PM EDT) Glucose, POC 155 65 - 199 mg/dL [facility] Comment: Supplemental ranges: <140 mg/dL before meals <180 mg/dL all other times of the day Blood 04/28/2024 8:28 PM EDT 04/28/2024 8:28 PM EDT Kristi Renae MD POINT OF CARE TEST O CARMELITA Performing Organization Address City/[facility]/ZIP Co de Phone Number [facility] [place] [address] * (ABNORMAL) POCT Glucose (04/28/2024 3:54 PM EDT) Glucose, POC 211(H) 65 - 199 mg/dL [facility] Comment: Supplemental ranges: <140 mg/dL before meals <180 mg/dL all other times of the day Blood 04/28/2024 3:54 PM EDT 04/28/2024 3:54 PM EDT Kristi Renae MD POINT OF CARE TEST O RDERAKEREN [facility] [place] [address] * POCT Glucose (04/28/2024 11:32 AM EDT) Glucose, POC 193 65 - 199 mg/dL [facility] Comment: Supplemental ranges: <140 mg/dL before meals <180 mg/dL all other times of the day Blood 04/28/2024 11:3 2 AM EDT 04/28/2024 11:32 AM EDT Kristi Renae MD POINT OF CARE TEST O CARMELITA [facility] [place] [address] * POCT Glucose (04/28/2024 10:04 AM EDT) Glucose, POC 196 65 - 199 mg/dL [facility] Comment: Supplemental ranges: <140 mg/dL before meals <180 mg/dL all other times of the day Blood 04/28/2024 10:0 4 AM EDT 04/28/2024 10:04 AM EDT Kristi Renae MD POINT OF CARE TEST O CARMELITA Performing Organization Address City/[facility]/ZIP Co de Phone Number [facility] [place] [address] * (ABNORMAL) POCT Glucose (04/28/2024 8:02 AM EDT) Glucose, POC 294(H) 65 - 199 mg/dL [facility] Comment: Supplemental ranges: <140 mg/dL before meals <180 mg/dL all other times of the day Blood 04/28/2024 8:02 AM EDT 04/28/2024 8:02 AM EDT Kristi Renae MD POINT OF CARE TEST O CARMELITA [facility] [place] [address] * Differential, Automated (04/28/2024 5:48 AM EDT) Neutrophil % 63.2 % [facility] Neutrophil Absolute 5.80 1.70 - 6.10 x10(3)/mcL [facility] Lymph % 21.0 % [facility] Lymphocytes Abs 1.9 0.9 - 3.2 x10(3)/[facility] Monocyte % 10.1 % [facility] Monocyte Abs 0.9 0.3 - 0.9 x10(3)/[facility] Eos % 4.5 % [facility] Eosinophils Abs 0.4 0.0 - 0.4 x10(3)/[facility] Basophil % 0.8 % [facility] Baso Absolute 0.1 0.0 - 0.1 x10(3)/[facility] Immature Gran % 0.40 % [facility] Comment: Immature granulocytes(IG's)percentage and absolute count will include metamyelocytes, myelocytes, and promyelocytes. Blood smears from CBCs yielding IG's will be scanned manually for concordance. If this scan disagrees with the automated IG or if promyelocytes are noted, a manual differential will be performed. Immature Gran Absolute 0.04 0.00 - 0.04 x10(3)/[facility] Blood 04/28/2024 5:48 AM EDT 04/28/2024 5:53 AM EDT Narrative Resulting Agency Comment Spec In Lab Russell Cohen MD HEMATOLOGY ORDER FRANSISCO [facility] [place] [address] * (ABNORMAL) Hemogram (04/28/2024 5:48 AM EDT) White Blood Cell 9.2 4.0 - 9.5 x10(3)/mc L [facility] Red Blood Cell 3.16(L) 4.58 - 5.54 x10(6)/mc L [facility] Hemoglobin 8.6(L) 13.7 - 16.5 g/dL [facility] Hematocrit 28.8(L) 40.5 - 48.5 % [facility] Mean Cell Volume 91.1 82.9 - 93.[address] [facility] Mean Cell Hemoglobin 27.2(L) 27.5 - 32.[address] [facility] Mean Cell Hemoglobin Concentration 29.9(L) 32.0 - 35.7 g/dL [facility] Platelet 458(H) 145 - 357 x10(3)/mc L [facility] RDW Standard Deviation 56.3(H) 36.0 - 45.0 [facility] RDW coefficient of variation 17.1(H) 11.4 - 13.8 % [facility] Mean Platelet Volume 10.9 7.6 - 12.9 [facility] NRBC% auto 0.0 % [facility] NRBC Absolute 0.000 0.000 - 0.000 x10(3)/mc L [facility] [facility] Blood 04/28/2024 5:48 AM EDT 04/28/2024 5:53 AM EDT Narrative Resulting Agency Comment Spec In Lab Russell Cohen MD HEMATOLOGY ORDER FRANSISCO [facility] [place] [address] * (ABNORMAL) Basic Metabolic Panel (non-fasting) (04/28/2024 5:48 AM EDT) Glucose 251(H) 65 - 199 mg/dL [facility] Comment:Diabetes: >=200 mg/d L plus symptoms Blood Urea Nitrogen 46(H) 10 - 20 mg/dL [facility] Creatinine 8.27(H) 0.80 - 1.50 mg/dL [facility] Comment:result rechecked-PR Sodium 136 135 - 145 mmol/L [facility] Potassium 5.6(H) 3.5 - 5.0 mmol/L [facility] Comment: Please note: ??Patients with WBC >100,000 may have falsely elevated Potassium levels. ??For accurate Potassium quantification in these patients send serum separator tube (gold top) for subsequent determinations. ??Contact the Clinical Chemistry Laboratory if there are any questions. Chloride 97(L) 98 - 107 mmol/L [facility] Carbon Dioxide 22 22 - 31 mmol/L [facility] Anion Gap 17(H) 5 - 15 mmol/L [facility] Calcium 9.4 8.5 - 10.5 mg/dL [facility] Est Glomerular Filtration Rate 7(L) >=60 mL/min/1. 73 m?? [facility] Comment: This patient's estimated GFR [...] Renae MD CHEMISTRY ORDERABLES Performing Organization Address [facility]/[place] [address] * (ABNORMAL) Phosphorus (04/28/2024 5:48 AM EDT) Phosphorus 8.3(H) 2.5 - 4.5 mg/dL [facility] Blood 04/28/2024 5:48 AM EDT 04/28/2024 5:53 AM EDT Narrative Resulting Agency Comment Spec In Lab Kristi Renae MD CHEMISTRY ORDERABLES [facility] [place] [address] * Magnesium (04/28/2024 5:48 AM EDT) Magnesium 0.89 0.69 - 1.07 mmol/L [facility] Blood 04/28/2024 5:48 AM EDT 04/28/2024 5:53 AM EDT Narrative Resulting Agency Comment Spec In Lab Kristi Renae MD CHEMISTRY ORDERABLES [facility] [address] * (ABNORMAL) POCT Glucose (04/27/2024 11:30 PM EDT) Glucose, POC 207(H) 65 - 199 mg/dL [facility] Comment: Supplemental ranges: <140 mg/dL before meals <180 mg/dL all other times of the day Blood 04/27/2024 11:3 0 PM EDT 04/27/2024 11:30 PM EDT Kristi Renae MD POINT OF CARE TEST O RDERABLES Performing Organization Address [facility] Co de Phone Number [facility] [place] [address] * POCT Glucose (04/27/2024 8:12 PM EDT) Glucose, POC 198 65 - 199 mg/dL [facility] Comment: Supplemental ranges: <140 mg/dL before meals <180 mg/dL all other times of the day Blood 04/27/2024 8:12 PM EDT 04/27/2024 8:12 PM EDT Kristi Renae MD POINT OF CARE TEST O RDERABLES Performing Organization Address City/[facility]/ZIP Co de Phone Number [facility] [place] [address] * (ABNORMAL) POCT Glucose (04/27/2024 4:56 PM EDT) Glucose, POC 226(H) 65 - 199 mg/dL [facility] Comment: Supplemental ranges: <140 mg/dL before meals <180 mg/dL all other times of the day Blood 04/27/2024 4:56 PM EDT 04/27/2024 4:56 PM EDT Kristi Renae MD POINT OF CARE TEST O CARMELITA [facility] [address] * POCT Glucose (04/27/2024 12:13 PM EDT) Glucose, POC 195 65 - 199 mg/dL [facility] Comment: Supplemental ranges: <140 mg/dL before meals <180 mg/dL all other times of the day Blood 04/27/2024 12:1 3 PM EDT 04/27/2024 12:13 PM EDT Kristi Renae MD POINT OF CARE TEST O CARMELITA Performing Organization Address [facility] Co de Phone Number [facility] [place] [address] * POCT Glucose (04/27/2024 6:44 AM EDT) Glucose, POC 109 65 - 199 mg/dL [facility] Comment: Supplemental ranges: <140 mg/dL before meals <180 mg/dL all other times of the day Blood 04/27/2024 6:44 AM EDT 04/27/2024 6:44 AM EDT Kristi Renae MD POINT OF CARE TEST O CARMELITA Performing Organization Address City/[facility]/ZIP Co de Phone Number [facility] [place] [address] * (ABNORMAL) Differential, Automated (04/27/2024 5:47 AM EDT) Neutrophil % 63.6 % [facility] Neutrophil Absolute 6.72(H) 1.70 - 6.10 x10(3)/ L [facility] Lymph % 19.0 % [facility] Lymphocytes Abs 2.0 0.9 - 3.2 x10(3)/[facility] Monocyte % 12.5 % [facility] Monocyte Abs 1.3(H) 0.3 - 0.9 x10(3)/ L [facility] Eos % 3.8 % [facility] Eosinophils Abs 0.4 0.0 - 0.4 x10(3)/[facility] Basophil % 0.6 % [facility] Baso Absolute 0.1 0.0 - 0.1 x10(3)/[facility] Immature Gran % 0.50 % [facility] Comment: Immature granulocytes(IG's)percentage and absolute count will include metamyelocytes, myelocytes, and promyelocytes. Blood smears from CBCs yielding IG's will be scanned manually for concordance. If this scan disagrees with the automated IG or if promyelocytes are noted, a manual differential will be performed. Immature Gran Absolute 0.05(H) 0.00 - 0.04 x10(3)/[facility] Blood 04/27/2024 5:47 AM EDT 04/27/2024 6:03 AM EDT Narrative Resulting Agency Comment Spec In Lab Russell Cohen MD HEMATOLOGY ORDER FRANSISCO [facility] [address] * (ABNORMAL) Hemogram (04/27/2024 5:47 AM EDT) White Blood Cell 10.6(H) 4.0 - 9.5 x10(3)/[facility] Red Blood Cell 2.89(L) 4.58 - 5.54 x10(6)/mc L [facility] Hemoglobin 7.9(L) 13.7 - 16.5 g/dL [facility] Hematocrit 26.2(L) 40.5 - 48.5 % [facility] Mean Cell Volume 90.7 82.9 - 93.1 [facility] Mean Cell Hemoglobin 27.3(L) 27.5 - 32.[address] [facility] Mean Cell Hemoglobin Concentration 30.2(L) 32.0 - 35.7 g/dL [facility] Platelet 360(H) 145 - 357 x10(3)/[facility] RDW Standard Deviation 55.3(H) 36.0 - 45.0 [facility] RDW coefficient of variation 16.9(H) 11.4 - 13.8 % [facility] Mean Platelet Volume 11.1 7.6 - 12.9 [facility] NRBC% auto 0.0 % [facility] NRBC Absolute 0.000 0.000 - 0.000 x10(3)/[facility] Blood 04/27/2024 5:47 AM EDT 04/27/2024 6:03 AM EDT Narrative Resulting Agency Comment Spec In Lab Russell Cohen MD HEMATOLOGY ORDER FRANSISCO [facility] [address] * (ABNORMAL) Basic Metabolic Panel (non-fasting) (04/27/2024 5:47 AM EDT) Glucose 109 65 - 199 mg/dL [facility] Comment:Diabetes: >=200 mg/d L plus symptoms Blood Urea Nitrogen 42(H) 10 - 20 mg/dL [facility] Creatinine 6.62(H) 0.80 - 1.50 mg/dL [facility] Comment:result rechecked-HN Sodium 139 135 - 145 mmol/L [facility] Potassium 4.9 3.5 - 5.0 mmol/L [facility] Comment: Please note: ??Patients with WBC >100,000 may have falsely elevated Potassium levels. ??For accurate Potassium quantification in these patients send serum separator tube (gold top) for subsequent determinations. ??Contact the Clinical Chemistry Laboratory if there are any questions. Chloride 100 98 - 107 mmol/L [facility] Carbon Dioxide 26 22 - 31 mmol/L [facility] Anion Gap 13 5 - 15 mmol/L [facility] Calcium 9.0 8.5 - 10.5 mg/dL [facility] Est Glomerular Filtration Rate 9(L) >=60 mL/min/1. 73 m?? [facility] Comment: This patient's estimated GFR [...] In Lab Kristi Renae MD CHEMISTRY ORDERABLES [facility] [address] * (ABNORMAL) Phosphorus (04/27/2024 5:47 AM EDT) Phosphorus 6.8(H) 2.5 - 4.5 mg/dL [facility] Blood 04/27/2024 5:47 AM EDT 04/27/2024 6:03 AM EDT Narrative Resulting Agency Comment Spec In Lab Kristi Renae MD CHEMISTRY ORDERABLES Performing Organization Address [facility] Co de Phone Number [facility] [address] * Magnesium (04/27/2024 5:47 AM EDT) Magnesium 0.83 0.69 - 1.07 mmol/L [facility] Blood 04/27/2024 5:47 AM EDT 04/27/2024 6:03 AM EDT Narrative Resulting Agency Comment Spec In Lab Kristi Renae MD CHEMISTRY ORDERABLES Performing Organization Address [facility] Co de Phone Number [facility] [address] * POCT Glucose (04/27/2024 3:59 AM EDT) Glucose, POC 78 65 - 199 mg/dL [facility] Comment: Supplemental ranges: <140 mg/dL before meals <180 mg/dL all other times of the day Blood 04/27/2024 3:59 AM EDT 04/27/2024 3:59 AM EDT Kristi Renae MD POINT OF CARE TEST O RDERABLES Performing Organization Address [facility] Co de Phone Number [facility] [place] [address] * POCT Glucose (04/26/2024 11:32 PM EDT) Glucose, POC 102 65 - 199 mg/dL [facility] Comment: Supplemental ranges: <140 mg/dL before meals <180 mg/dL all other times of the day Blood 04/26/2024 11:3 2 PM EDT 04/26/2024 11:32 PM EDT Kristi Renae MD POINT OF CARE TEST O CARMELITA [facility] [place] [address] * POCT Glucose (04/26/2024 8:28 PM EDT) Glucose, POC 121 65 - 199 mg/dL [facility] Comment: Supplemental ranges: <140 mg/dL before meals <180 mg/dL all other times of the day Blood 04/26/2024 8:28 PM EDT 04/26/2024 8:28 PM EDT Kristi Renae MD POINT OF CARE TEST O CARMELITA Performing Organization Address City/[facility]/ZIP Co de Phone Number [facility] [place] [address] * POCT Glucose (04/26/2024 5:09 PM EDT) Glucose, POC 100 65 - 199 mg/dL [facility] Comment: Supplemental ranges: <140 mg/dL before meals <180 mg/dL all other times of the day Blood 04/26/2024 5:09 PM EDT 04/26/2024 5:09 PM EDT Kristi Renae MD POINT OF CARE TEST O CARMELITA Performing Organization Address City/[facility]/ZIP Co de Phone Number [facility] [place] [address] * POCT Glucose (04/26/2024 11:51 AM EDT) Glucose, POC 79 65 - 199 mg/dL [facility] Comment: Supplemental ranges: <140 mg/dL before meals <180 mg/dL all other times of the day Blood 04/26/2024 11:5 1 AM EDT 04/26/2024 11:51 AM EDT Kristi Renae MD POINT OF CARE TEST O CARMELITA [facility] [place] [address] * POCT Glucose (04/26/2024 7:30 AM EDT) [facility] Glucose, POC 118 65 - 199 mg/dL [facility] Comment: Supplemental ranges: <140 mg/dL before meals <180 mg/dL all other times of the day Blood 04/26/2024 7:30 AM EDT 04/26/2024 7:30 AM EDT Kristi Renae MD POINT OF CARE TEST O CARMELITA Performing Organization Address [facility]/ZIP Co de Phone Number [facility] [place] [address] * (ABNORMAL) Differential, Automated (04/26/2024 4:58 AM EDT) [facility] Neutrophil % 73.1 % [facility] Neutrophil Absolute 9.61(H) 1.70 - 6.10 x10(3)/mc L [facility] Lymph % 12.4 % [facility] Lymphocytes Abs 1.6 0.9 - 3.2 x10(3)/mc L [facility] Monocyte % 10.0 % [facility] Monocyte Abs 1.3(H) 0.3 - 0.9 x10(3)/mc L [facility] Eos % 3.7 % [facility] Eosinophils Abs 0.5(H) 0.0 - 0.4 x10(3)/mc L [facility] Basophil % 0.4 % [facility] Baso Absolute 0.0 0.0 - 0.1 x10(3)/mc L [facility] Immature Gran % 0.40 % [facility] Comment: Immature granulocytes(IG's)percentage and absolute count will include metamyelocytes, myelocytes, and promyelocytes. Blood smears from CBCs yielding IG's will be scanned manually for concordance. If this scan disagrees with the automated IG or if promyelocytes are noted, a manual differential will be performed. Immature Gran Absolute 0.05(H) 0.00 - 0.04 x10(3)/ L [facility] Blood 04/26/2024 4:58 AM EDT 04/26/2024 5:22 AM EDT Narrative Resulting Agency Comment Spec In Lab Russell Cohen MD HEMATOLOGY ORDER FRANSISCO [facility] [address] * (ABNORMAL) Hemogram (04/26/2024 4:58 AM EDT) White Blood Cell 13.1(H) 4.0 - 9.5 x10(3)/[facility] Red Blood Cell 3.20(L) 4.58 - 5.54 x10(6)/ L [facility] Hemoglobin 8.9(L) 13.7 - 16.5 g/dL [facility] Hematocrit 29.1(L) 40.5 - 48.5 % [facility] Mean Cell Volume 90.9 82.9 - 93.[address] [facility] Mean Cell Hemoglobin 27.8 27.5 - 32.[address] [facility] Mean Cell Hemoglobin Concentration 30.6(L) 32.0 - 35.7 g/dL [facility] Platelet 429(H) 145 - 357 x10(3)/ L [facility] RDW Standard Deviation 55.0(H) 36.0 - 45.[address] [facility] RDW coefficient of variation 16.8(H) 11.4 - 13.8 % [facility] Mean Platelet Volume 10.9 7.6 - 12.[address] [facility] NRBC% auto 0.0 % [facility] NRBC Absolute 0.000 0.000 - 0.000 x10(3)/mc L [facility] Blood 04/26/2024 4:58 AM EDT 04/26/2024 5:22 AM EDT Narrative Resulting Agency Comment Spec In Lab Russell Cohen MD HEMATOLOGY ORDER FRANSISCO [facility] [address] * (ABNORMAL) Basic Metabolic Panel (non-fasting) (04/26/2024 4:58 AM EDT) Glucose 109 65 - 199 mg/dL [facility] Comment:Diabetes: >=200 mg/d L plus symptoms Blood Urea Nitrogen 57(H) 10 - 20 mg/dL [facility] Creatinine 8.00(H) 0.80 - 1.50 mg/dL [facility] Comment:result rechecked-mg Sodium 139 135 - 145 mmol/L [facility] Potassium 5.5(H) 3.5 - 5.0 mmol/L [facility] Comment: Please note: ??Patients with WBC >100,000 may have falsely elevated Potassium levels. ??For accurate Potassium quantification in these patients send serum separator tube (gold top) for subsequent determinations. ??Contact the Clinical Chemistry Laboratory if there are any questions. Chloride 97(L) 98 - 107 mmol/L [facility] Carbon Dioxide 23 22 - 31 mmol/L [facility] Anion Gap 19(H) 5 - 15 mmol/L [facility] Calcium 8.5 8.5 - 10.5 mg/dL [facility] Est Glomerular Filtration Rate 7(L) >=60 mL/min/1. 73 m?? [facility] Comment: This patient's estimated GFR [...] Renae MD CHEMISTRY ORDERABLES Performing Organization Address City/[facility] Co de Phone Number [facility] [place] [address] * (ABNORMAL) Phosphorus (04/26/2024 4:58 AM EDT) Phosphorus 7.4(H) 2.5 - 4.5 mg/dL [facility] Blood 04/26/2024 4:58 AM EDT 04/26/2024 5:24 AM EDT Narrative Resulting Agency Comment Spec In Lab Kristi Renae MD CHEMISTRY ORDERABLES Performing Organization Address [facility] Co de Phone Number [facility] [place] [address] * Magnesium (04/26/2024 4:58 AM EDT) Magnesium 0.83 0.69 - 1.07 mmol/L [facility] Blood 04/26/2024 4:58 AM EDT 04/26/2024 5:24 AM EDT Narrative Resulting Agency Comment Spec In Lab Kristi Renae MD CHEMISTRY ORDERABLES Performing Organization Address [facility] Co de Phone Number [facility] [place] [address] * Vancomycin Level, Random (04/26/2024 4:58 AM EDT) Vancomycin, Random 19.4 mg/L [facility] Comment: This level is for determination of the patient's vancomycin arim-lufml-mrm-curve (AUC) value. Contact the inpatient pharmacy for interpretation. Blood 04/26/2024 4:58 AM EDT 04/26/2024 5:24 AM EDT Kristi Renae MD CHEMISTRY ORDERABLES Performing Organization Address City/[facility]/ZIP Co de Phone Number [facility] [place] [address] * POCT Glucose (04/26/2024 4:24 AM EDT) Glucose, POC 112 65 - 199 mg/dL [facility] Comment: Supplemental ranges: <140 mg/dL before meals <180 mg/dL all other times of the day Blood 04/26/2024 4:24 AM EDT 04/26/2024 4:24 AM EDT Kristi Renae MD POINT OF CARE TEST O RDERAKEREN Performing Organization Address [facility] Co de Phone Number [facility] [place] [address] * POCT Glucose (04/25/2024 11:33 PM EDT) Glucose, POC 154 65 - 199 mg/dL [facility] Comment: Supplemental ranges: <140 mg/dL before meals <180 mg/dL all other times of the day Blood 04/25/2024 11:3 3 PM EDT 04/25/2024 11:33 PM EDT Kristi Renae MD POINT OF CARE TEST O RDLIEN Performing Organization Address City/[facility] Co de Phone Number [facility] [place] [address] * POCT Glucose (04/25/2024 6:53 PM EDT) Glucose, POC 73 65 - 199 mg/dL [facility] Comment: Supplemental ranges: <140 mg/dL before meals <180 mg/dL all other times of the day Blood 04/25/2024 6:53 PM EDT 04/25/2024 6:53 PM EDT Kristi Renae MD POINT OF CARE TEST O CARMELITA Performing Organization Address [facility]/ZIP Co de Phone Number [facility] [place] [address] * POCT Glucose (04/25/2024 6:10 PM EDT) Glucose, POC 68 65 - 199 mg/dL [facility] Comment: Supplemental ranges: <140 mg/dL before meals <180 mg/dL all other times of the day Blood 04/25/2024 6:10 PM EDT 04/25/2024 6:10 PM EDT Kristi Renae MD POINT OF CARE TEST O CARMELITA Performing Organization Address [facility] Co de Phone Number [facility] [place] [address] * (ABNORMAL) POCT Glucose (04/25/2024 5:46 PM EDT) Glucose, POC 57(L) 65 - 199 mg/dL [facility] Comment: Supplemental ranges: <140 mg/dL before meals <180 mg/dL all other times of the day Blood 04/25/2024 5:46 PM EDT 04/25/2024 5:46 PM EDT Kristi Renae MD POINT OF CARE TEST O CARMELITA Performing Organization Address [facility] Co de Phone Number [facility] [place] [address] * Specimen to Pathology (04/25/2024 5:02 PM EDT) AP Specimen 04/25/2024 5:02 PM EDT 04/25/2024 5:[address] [facility] - 04/25/2024 5:02 PM EDT Specimen requisition ordered. ??Separate Pathology report to follow Janet Carrington MD PATHOLOGY/CYTOLOGY O CARMELITA [facility] [place] [address] * Surgical Pathology Report (04/25/2024 5:01 PM EDT) Final Diagnosis [id number] ? Location: [facility]; [facility]; A The signing pathologist has (i) examined [...] margin, with expected changes. Electronically signed by: ?Kiel Garcia MD Verified: ??05/01/2024 14:48 ??Pathologist Performed at: ??-[facility] Dept. of [place]ology, [place] [address] Supervisor Stage Carpentry: Karina Valencia MD, FCAP, ??CLIA Certificate: [id number] SPECIMEN(S) SUBMITTED A - Right leg CLINICAL INFORMATION Infected right heel. SPECIMEN PROCESSING A - Labeled/Fixative: ?? Right lower leg, fresh. Quantity/Size: Single 20.3 x 13.3 cm. Tissue Description: Right, below the knee amputation revision. Margin: Viable. Skin: Intact, dry, white. Lesions: No lesions identified. Prior resection site: [place] granulation tissue overlying prior amputation site. Vessels: ??Posterior tibial artery: Diffuse atherosclerosis with up to 70% luminal stenosis. ??Anterior tibial artery: Atherosclerosis with up to 10% luminal stenosis. Sections/Processin g: Trash Collector Supervisor sections in 3 cassettes as follows: ?A1: ??Skin and underlying subcutis, and skeletal muscle en face sections taken at ? margin ?A2: ??Granulation tissue sectioned longitudinally from prior resection site ?A3: ??Posterior and anterior tibial artery bundles submitted in cross-section ??tbf, sns 05/01/2024 2:[address] [facility] Extremity 04/25/2024 5:01 PM EDT 04/25/2024 5:01 PM EDT Janet Carrington MD PATHOLOGY/CYTOLOGY O RDERABLES Performing Organization Address City/[facility]/ZIP Co de Phone Number [facility] [place] [place] [address] * EKG 12 Lead (04/25/2024 12:38 PM EDT) Ventricular rate 61 BPM MUSE SYSTEM Atrial Rate 61 BPM MUSE SYSTEM P-R Interval 152 ms MUSE SYSTEM QRS Duration 82 ms MUSE SYSTEM Q-T Interval 448 ms MUSE SYSTEM QTC Calculated (Bezet) 450 ms MUSE SYSTEM Calculated P [place] 47 degrees MUSE SYSTEM Calculated R [place] 30 degrees MUSE SYSTEM Calculated T [place] 43 degrees MUSE SYSTEM INTERPRETATION Normal sinus rhythm Normal ECG When compared with ECG of 24-APR-2024 12:47, No significant change was found Confirmed by MD Juan, Sourav ([id number]) on 04/25/2024 2:21:13 PM MUSE SYSTEM 04/25/2024 12:3 8 PM EDT 04/25/2024 2:21 PM EDT Kristi Renae MD ECG ORDERABLES Performing Organization Address [facility] Co de Phone Number MUSE SYSTEM * POCT Glucose (04/25/2024 11:36 AM EDT) Pathologist [facility] Glucose, POC 154 65 - 199 mg/dL [facility] Comment: Supplemental ranges: <140 mg/dL before meals <180 mg/dL all other times of the day Blood 04/25/2024 11:3 6 AM EDT 04/25/2024 11:36 AM EDT Kristi Renae MD POINT OF CARE TEST O RDERABLES [facility] [place] [address] * (ABNORMAL) Urinalysis Microscopic Exam (04/25/2024 9:32 AM EDT) [facility] RBC, Urine 2 0 - 3 /HPF [facility] WBC, Urine 4(H) 0 - 3 /HPF [facility] Bacteria, Urine Few(A) None /HPF [facility] Comment: Interpret results with caution, microscopic results are from suboptimal specimen volume Squamous Epithelial Cells Raw Data, Urine 3 <=4 /HPF [facility] Transitional Epithelial Cells, Urine <1 <=1 /HPF [facility] Comment: Interpret results with caution, microscopic results are from suboptimal specimen volume Hyaline Casts, Urine 2 0 - 2 /LPF [facility] Comment: Interpret results with caution, microscopic results are from suboptimal specimen volume Urine 04/25/2024 9:32 AM EDT 04/25/2024 9:55 AM EDT Narrative Resulting Agency Comment Spec In Lab Pau Burt APRN URINE ORDERABLES Performing Organization Address City/[facility]/ZIP Co de Phone Number [facility] [place] [address] * (ABNORMAL) Urinalysis with reflex Culture (04/25/2024 9:32 AM EDT) Cancer [facility] Glucose, Urine Dipstick 250(A) Negative mg/dL [facility] Protein, Urine Dipstick >=300(A) Negative mg/dL [facility] Bilirubin, Urine Dipstick Negative Negative mg/dL [facility] Comment: Clinical correlation required for positive Urine Bilirubin results as false positive may occur with some drugs and drug related products. If a false positive is suspected a serum total bilirubin should be considered if clinically indicated. Urobilinogen, Urine Dipstick Normal Normal mg/dL [facility] pH, Urn (dipstick) 7.5 5.0 - 8.0 [facility] Blood, Urine Dipstick Negative Negative mg/dL [facility] Ketone, Urine Dipstick Negative Negative mg/dL [facility] Nitrite, Urine Dipstick Negative Negative [facility] Leukocytes, Urine Dipstick Negative Negative [facility] Appearance, Urine Dipstick Turbid(A) Clear [facility] Specific [place] Urine Automated 1.022 1.005 - 1.030 [facility] Color, Urine Dipstick Yellow Yellow [facility] Reflex to Culture No [facility] Urine 04/25/2024 9:32 AM EDT 04/25/2024 9:54 AM EDT Narrative Resulting Agency Comment Spec In Lab Pau Burt APRN URINE ORDERABLES Performing Organization Address City/State/[facility] Co de Phone Number [facility] [place] [address] * (ABNORMAL) Differential, Automated (04/25/2024 9:23 AM EDT) Neutrophil % 59.8 % [facility] Neutrophil Absolute 4.79 1.70 - 6.10 x10(3)/mc L [facility] Lymph % 20.8 % [facility] Lymphocytes Abs 1.7 0.9 - 3.2 x10(3)/mc L [facility] Monocyte % 11.9 % [facility] Monocyte Abs 1.0(H) 0.3 - 0.9 x10(3)/[facility] Eos % 6.0 % [facility] Eosinophils Abs 0.5(H) 0.0 - 0.4 x10(3)/[facility] Basophil % 1.1 % [facility] Baso Absolute 0.1 0.0 - 0.1 x10(3)/[facility] Immature Gran % 0.40 % [facility] Comment: Immature granulocytes(IG's)percentage and absolute count will include metamyelocytes, myelocytes, and promyelocytes. Blood smears from CBCs yielding IG's will be scanned manually for concordance. If this scan disagrees with the automated IG or if promyelocytes are noted, a manual differential will be performed. Immature Gran Absolute 0.03 0.00 - 0.04 x10(3)/[facility] Blood 04/25/2024 9:23 AM EDT 04/25/2024 10:06 AM EDT Narrative Resulting Agency Comment Spec In Lab Munira Jorge MD HEMATOLOGY ORDERABLE S [facility] [place] [address] * (ABNORMAL) Hemogram (04/25/2024 9:23 AM EDT) White Blood Cell 8.0 4.0 - 9.5 x10(3)/[facility] Red Blood Cell 3.39(L) 4.58 - 5.54 x10(6)/ L [facility] Hemoglobin 9.2(L) 13.7 - 16.5 g/dL [facility] Hematocrit 31.8(L) 40.5 - 48.5 % [facility] Mean Cell Volume 93.8(H) 82.9 - 93.[address] [facility] Mean Cell Hemoglobin 27.1(L) 27.5 - 32.[address] [facility] Mean Cell Hemoglobin Concentration 28.9(L) 32.0 - 35.7 g/dL [facility] Platelet 391(H) 145 - 357 x10(3)/mc L [facility] RDW Standard Deviation 56.0(H) 36.0 - 45.[address] [facility] RDW coefficient of variation 16.5(H) 11.4 - 13.8 % [facility] Mean Platelet Volume 11.4 7.6 - 12.[address] [facility] NRBC% auto 0.0 % [facility] NRBC Absolute 0.000 0.000 - 0.000 x10(3)/mc L [facility] Blood 04/25/2024 9:23 AM EDT 04/25/2024 10:06 AM EDT Narrative Resulting Agency Comment Spec In Lab Munira Jorge MD HEMATOLOGY ORDERABLE S [facility] [address] * (ABNORMAL) Basic Metabolic Panel (non-fasting) (04/25/2024 9:23 AM EDT) Glucose 182 65 - 199 mg/dL [facility] Comment:Diabetes: >=200 mg/d L plus symptoms Blood Urea Nitrogen 52(H) 10 - 20 mg/dL [facility] Creatinine 6.89(H) 0.80 - 1.50 mg/dL [facility] Sodium 140 135 - 145 mmol/L [facility] Potassium 5.5(H) 3.5 - 5.0 mmol/L [facility] Comment: Please note: ??Patients with WBC >100,000 may have falsely elevated Potassium levels. ??For accurate Potassium quantification in these patients send serum separator tube (gold top) for subsequent determinations. ??Contact the Clinical Chemistry Laboratory if there are any questions. Chloride 99 98 - 107 mmol/L [facility] Carbon Dioxide 23 22 - 31 mmol/L [facility] Anion Gap 18(H) 5 - 15 mmol/L [facility] Calcium 8.5 8.5 - 10.5 mg/dL [facility] Est Glomerular Filtration Rate 9(L) >=60 mL/min/1. 73 m?? [facility] Comment: This patient's estimated GFR [...] In Lab Kristi Renae MD CHEMISTRY ORDERABLES [facility] [place] [address] * POCT Glucose (04/25/2024 7:56 AM EDT) Glucose, POC 144 65 - 199 mg/dL [facility] Comment: Supplemental ranges: <140 mg/dL before meals <180 mg/dL all other times of the day Blood 04/25/2024 7:56 AM EDT 04/25/2024 7:56 AM EDT Kristi Renae MD POINT OF CARE TEST O RDERABLES [facility] [place] [address] * Type and Screen Validity (04/25/2024 5:29 AM EDT) T&S only valid at [facility] Comment:This Type and Screen result is only valid at the [facility] Blood 04/25/2024 5:29 AM EDT 04/25/2024 5:54 AM EDT Narrative Resulting Agency Comment Spec In Lab Russell Cohen MD BLOOD BANK LAB O RDERABLES Performing Organization Address City/[facility]/ZIP Co de Phone Number [facility] [place] [address] * ABORH Recheck Status (04/25/2024 5:29 AM EDT) ABORH Type Recheck Completed [facility] Blood 04/25/2024 5:29 AM EDT 04/25/2024 5:54 AM EDT Narrative Resulting Agency Comment Spec In Lab Russell Cohen MD BLOOD BANK LAB O RDERABLES Performing Organization Address City/[facility]/ZIP Co de Phone Number [facility] [place] [address] * (ABNORMAL) Phosphorus (04/25/2024 5:29 AM EDT) Phosphorus 6.9(H) 2.5 - 4.5 mg/dL [facility] Blood 04/25/2024 5:29 AM EDT 04/25/2024 5:52 AM EDT Narrative Resulting Agency Comment Spec In Lab Kristi Renae MD CHEMISTRY ORDERABLES Performing Organization Address City/[facility]/ZIP Co de Phone Number [facility] [place] [address] * Magnesium (04/25/2024 5:29 AM EDT) Magnesium 0.85 0.69 - 1.07 mmol/L [facility] Blood 04/25/2024 5:29 AM EDT 04/25/2024 5:52 AM EDT Narrative Resulting Agency Comment Spec In Lab Kristi Renae MD CHEMISTRY ORDERABLES [facility] [place] [address] * Type and screen ([facility]CGP/CHASE) (04/25/2024 5:29 AM EDT) ABORH Type A POSITIVE [facility] Patient BB History Found [facility] Expires at [id number] on: 04/28/2024 [facility] Ab Screen Interp Negative [facility] Blood 04/25/2024 5:29 AM EDT 04/25/2024 5:[address] [facility] - 04/25/2024 5:29 AM EDT This Type and Screen result is only valid at the [facility] Resulting Agency Comment Spec In Lab Kristi Renae MD BLOOD BANK LAB ORDER FRANSISCO Performing Organization Address City/[facility]/ZIP Co de Phone Number [facility] [place] [address] * (ABNORMAL) POCT Glucose (04/25/2024 4:19 AM EDT) [facility] Glucose, POC 204(H) 65 - 199 mg/dL [facility] Comment: Supplemental ranges: <140 mg/dL before meals <180 mg/dL all other times of the day Blood 04/25/2024 4:19 AM EDT 04/25/2024 4:19 AM EDT Kristi Renae MD POINT OF CARE TEST O RDERABLES Performing Organization Address City/[facility]/ZIP Co de Phone Number [facility] [place] [address] * (ABNORMAL) POCT Glucose (04/25/2024 12:08 AM EDT) Glucose, POC 237(H) 65 - 199 mg/dL [facility] Comment: Supplemental ranges: <140 mg/dL before meals <180 mg/dL all other times of the day Blood 04/25/2024 12:0 8 AM EDT 04/25/2024 12:08 AM EDT Kristi Renae MD POINT OF CARE TEST O CARMELITA Performing Organization Address City/[facility]/ZIP Co de Phone Number [facility] [place] [address] * POCT Glucose (04/24/2024 8:03 PM EDT) Glucose, POC 157 65 - 199 mg/dL [facility] Comment: Supplemental ranges: <140 mg/dL before meals <180 mg/dL all other times of the day Blood 04/24/2024 8:03 PM EDT 04/24/2024 8:03 PM EDT Kristi Renae MD POINT OF CARE TEST O CARMELITA Performing Organization Address [facility]/ZIP Co de Phone Number [facility] [place] [address] * POCT Glucose (04/24/2024 5:12 PM EDT) Glucose, POC 102 65 - 199 mg/dL [facility] Comment: Supplemental ranges: <140 mg/dL before meals <180 mg/dL all other times of the day Blood 04/24/2024 5:12 PM EDT 04/24/2024 5:12 PM EDT Kristi Renae MD POINT OF CARE TEST O RDERAKEREN [facility] [place] [address] * POCT Glucose (04/24/2024 3:31 PM EDT) Glucose, POC 123 65 - 199 mg/dL [facility] Comment: Supplemental ranges: <140 mg/dL before meals <180 mg/dL all other times of the day Blood 04/24/2024 3:31 PM EDT 04/24/2024 3:31 PM EDT Kristi Renae MD POINT OF CARE TEST O RDERABLES Performing Organization Address [facility]/ZIP Co de Phone Number [facility] [place] [address] * (ABNORMAL) Ferritin (04/24/2024 3:15 PM EDT) Ferritin 1,173(H) 31 - 409 ng/mL [facility] Comment: Please note that as of 09/29/2023, the reference intervals for Ferritin have been updated. Blood 04/24/2024 3:15 PM EDT 04/24/2024 3:34 PM EDT Narrative Resulting Agency Comment Spec In Lab Ruby Villareal MD CHEMISTRY ORDERABLE S Performing Organization Address [facility] Co de Phone Number [facility] [place] [address] * (ABNORMAL) Iron and TIBC (04/24/2024 3:15 PM EDT) Iron 27(L) 45 - 160 mcg/dL [facility] TIBC 139(L) 250 - 450 mcg/dL [facility] Iron Saturation 19(L) 20 - 50 % [facility] Blood 04/24/2024 3:15 PM EDT 04/24/2024 3:34 PM EDT Narrative Resulting Agency Comment Spec In Lab Ruby Villareal MD CHEMISTRY ORDERABLE S Performing Organization Address [facility]/ZIP Co de Phone Number [facility] [place] [address] * EKG 12 Lead (04/24/2024 12:47 PM EDT) Ventricular rate 58 BPM MUSE SYSTEM Atrial Rate 58 BPM MUSE SYSTEM P-R Interval 152 ms MUSE SYSTEM QRS Duration 80 ms MUSE SYSTEM Q-T Interval 456 ms MUSE SYSTEM QTC Calculated (Bezet) 447 ms MUSE SYSTEM Calculated P [place] 51 degrees MUSE SYSTEM Calculated R [place] 9 degrees MUSE SYSTEM Calculated T [place] 39 degrees MUSE SYSTEM INTERPRETATION Sinus bradycardia Otherwise normal ECG When compared with ECG of 22-APR-2024 10:51, Sinus rhythm has replaced Atrial fibrillation Vent. rate has decreased BY ??50 BPM I personally reviewed the tracing and edited the fellows interpretation Confirmed by fellow Gregory Painting ([id number]) on 04/25/2024 1:07:18 PM Confirmed by MD Martinez Jon ([id number] on 04/25/2024 2:31:09 PM MUSE SYSTEM 04/24/2024 12:4 7 PM EDT 04/25/2024 2:31 PM EDT Kristi Renae MD ECG ORDERABLES MUSE SYSTEM * POCT Glucose (04/24/2024 11:58 AM EDT) Glucose, POC 186 65 - 199 mg/dL [facility] Comment: Supplemental ranges: <140 mg/dL before meals <180 mg/dL all other times of the day Blood 04/24/2024 11:5 8 AM EDT 04/24/2024 11:58 AM EDT Kristi Renae MD POINT OF CARE TEST O RDERABLES [facility] [place] [address] * (ABNORMAL) POCT Glucose (04/24/2024 7:36 AM EDT) Glucose, POC 200(H) 65 - 199 mg/dL [facility] Comment: Supplemental ranges: <140 mg/dL before meals <180 mg/dL all other times of the day Blood 04/24/2024 7:36 AM EDT 04/24/2024 7:36 AM EDT Kristi Renae MD POINT OF CARE TEST O RDERABLES [facility] [place] [address] * (ABNORMAL) Differential, Automated (04/24/2024 5:21 AM EDT) Neutrophil % 61.7 % [facility] Neutrophil Absolute 6.04 1.70 - 6.10 x10(3)/mc L [facility] Lymph % 18.8 % [facility] Lymphocytes Abs 1.8 0.9 - 3.2 x10(3)/mc L [facility] Monocyte % 12.9 % [facility] Monocyte Abs 1.3(H) 0.3 - 0.9 x10(3)/mc L [facility] Eos % 5.7 % [facility] Eosinophils Abs 0.6(H) 0.0 - 0.4 x10(3)/mc L [facility] Basophil % 0.6 % [facility] Baso Absolute 0.1 0.0 - 0.1 x10(3)/mc L [facility] Immature Gran % 0.30 % [facility] Comment: Immature granulocytes(IG's)percentage and absolute count will include metamyelocytes, myelocytes, and promyelocytes. Blood smears from CBCs yielding IG's will be scanned manually for concordance. If this scan disagrees with the automated IG or if promyelocytes are noted, a manual differential will be performed. Immature Gran Absolute 0.03 0.00 - 0.04 x10(3)/ L [facility] Blood 04/24/2024 5:21 AM EDT 04/24/2024 5:40 AM EDT Narrative Resulting Agency Comment Spec In Lab Nikky Rao MD HEMATOLOGY ORDERA BLES [facility] [place] [address] * (ABNORMAL) Hemogram (04/24/2024 5:21 AM EDT) White Blood Cell 9.8(H) 4.0 - 9.5 x10(3)/mc L [facility] Red Blood Cell 3.31(L) 4.58 - 5.54 x10(6)/mc L [facility] Hemoglobin 9.1(L) 13.7 - 16.5 g/dL [facility] Hematocrit 30.1(L) 40.5 - 48.5 % [facility] Mean Cell Volume 90.9 82.9 - 93.[address] [facility] Mean Cell Hemoglobin 27.5 27.5 - 32.[address] [facility] Mean Cell Hemoglobin Concentration 30.2(L) 32.0 - 35.7 g/dL [facility] Platelet 381(H) 145 - 357 x10(3)/mc L [facility] RDW Standard Deviation 54.4(H) 36.0 - 45.[address] [facility] RDW coefficient of variation 16.3(H) 11.4 - 13.8 % [facility] Mean Platelet Volume 11.3 7.6 - 12.[address] [facility] NRBC% auto 0.0 % [facility] NRBC Absolute 0.000 0.000 - 0.000 x10(3)/ L [facility] Blood 04/24/2024 5:21 AM EDT 04/24/2024 5:40 AM EDT Narrative Resulting Agency Comment Spec In Lab Nikky Rao MD HEMATOLOGY ORDERA BLES Performing Organization Address [facility]/ZIP Co de Phone Number [facility] [place] [address] * (ABNORMAL) Phosphorus (04/24/2024 5:21 AM EDT) Pathologist [facility] Phosphorus 6.8(H) 2.5 - 4.5 mg/dL [facility] Blood 04/24/2024 5:21 AM EDT 04/24/2024 5:40 AM EDT Narrative Resulting Agency Comment Spec In Lab Kristi Renae MD CHEMISTRY ORDERABLES Performing Organization Address City/[facility] Co de Phone Number [facility] [address] * Magnesium (04/24/2024 5:21 AM EDT) [facility] Magnesium 0.93 0.69 - 1.07 mmol/L [facility] Blood 04/24/2024 5:21 AM EDT 04/24/2024 5:40 AM EDT Narrative Resulting Agency Comment Spec In Lab Kristi Renae MD CHEMISTRY ORDERABLES Performing Organization Address [facility] Co de Phone Number [facility] [place] [place] [address] * Vancomycin Level, Random (04/24/2024 5:21 AM EDT) [facility] Vancomycin, Random 14.9 mg/L [facility] Comment: This level is for determination of the patient's vancomycin swly-igutg-oev-curve (AUC) value. Contact the inpatient pharmacy for interpretation. Blood 04/24/2024 5:21 AM EDT 04/24/2024 5:40 AM EDT Kristi Renae MD CHEMISTRY ORDERABLES Performing Organization Address [facility] Co de Phone Number [facility] [place] [address] * (ABNORMAL) Basic Metabolic Panel (non-fasting) (04/24/2024 5:21 AM EDT) [facility] Glucose 184 65 - 199 mg/dL [facility] Comment:Diabetes: >=200 mg/d L plus symptoms Blood Urea Nitrogen 56(H) 10 - 20 mg/dL [facility] Creatinine 7.36(H) 0.80 - 1.50 mg/dL [facility] Comment:result rechecked-hn Sodium 139 135 - 145 mmol/L [facility] Potassium 5.5(H) 3.5 - 5.0 mmol/L [facility] Comment: Please note: ??Patients with WBC >100,000 may have falsely elevated Potassium levels. ??For accurate Potassium quantification in these patients send serum separator tube (gold top) for subsequent determinations. ??Contact the Clinical Chemistry Laboratory if there are any questions. Chloride 99 98 - 107 mmol/L [facility] Carbon Dioxide 26 22 - 31 mmol/L [facility] Anion Gap 14 5 - 15 mmol/L [facility] Calcium 9.0 8.5 - 10.5 mg/dL [facility] Est Glomerular Filtration Rate 8(L) >=60 mL/min/1. 73 m?? [facility] Comment: This patient's estimated GFR [...] In Lab Sourav Bryson MD CHEMISTRY ORDERABLES [facility] [place] [address] * POCT Glucose (04/24/2024 4:04 AM EDT) Glucose, POC 159 65 - 199 mg/dL [facility] Comment: Supplemental ranges: <140 mg/dL before meals <180 mg/dL all other times of the day Blood 04/24/2024 4:04 AM EDT 04/24/2024 4:04 AM EDT Kristi Renae MD POINT OF CARE TEST O CARMELITA Performing Organization Address City/[facility]/ZIP Co de Phone Number [facility] [place] [address] * (ABNORMAL) POCT Glucose (04/24/2024 1:00 AM EDT) Glucose, POC 234(H) 65 - 199 mg/dL [facility] Comment: Supplemental ranges: <140 mg/dL before meals <180 mg/dL all other times of the day Blood 04/24/2024 1:00 AM EDT 04/24/2024 1:00 AM EDT Kristi Renae MD POINT OF CARE TEST O CARMELITA Performing Organization Address [facility] Co de Phone Number [facility] [place] [address] * (ABNORMAL) POCT Glucose (04/23/2024 8:43 PM EDT) Glucose, POC 244(H) 65 - 199 mg/dL [facility] Comment: Supplemental ranges: <140 mg/dL before meals <180 mg/dL all other times of the day Blood 04/23/2024 8:43 PM EDT 04/23/2024 8:43 PM EDT Kristi Renae MD POINT OF CARE TEST O CARMELITA Performing Organization Address City/[facility] Co de Phone Number [facility] [place] [address] * (ABNORMAL) POCT Glucose (04/23/2024 4:37 PM EDT) Glucose, POC 228(H) 65 - 199 mg/dL [facility] Comment: Supplemental ranges: <140 mg/dL before meals <180 mg/dL all other times of the day Blood 04/23/2024 4:37 PM EDT 04/23/2024 4:37 PM EDT Kristi Renae MD POINT OF CARE TEST Vita MAE Performing Organization Address [facility] Phone Number [facility] [place] [address] * (ABNORMAL) POCT Glucose (04/23/2024 11:57 AM EDT) Glucose, POC 208(H) 65 - 199 mg/dL [facility] Comment: Supplemental ranges: <140 mg/dL before meals <180 mg/dL all other times of the day Blood 04/23/2024 11:5 7 AM EDT 04/23/2024 11:57 AM EDT Kristi Renae MD POINT OF CARE TEST Vita MAE Performing Organization Address [facility] Phone Number [facility] [place] [address] * ECHO COMPLETE (04/23/2024 11:36 AM EDT) EF 61 [facility] SYSTEM Anatomical Region Laterality Modality Cardiac Other 04/23/2024 11:0 8 AM EDT Narrative 04/23/2024 2:45 PM EDT 1 [place] [address] ? Echocardiogram Report Name: GERSON BRUNER ? Study Date: 04/23/2024 11:08 AMBP: 130/67 mmHg ? Patient Location: [id number] 0410 A : 1965 ? Height: 69 in ? Account: [id number] Age: 58 yrs ? Weight: 190 lb Gender: Male ?BSA: 2.0 m2 Ordering Physician: CLEVE GARRISON Referring Physician: NONE Performed By: Noe Gong RDCS Reason For Study: Irregular heart beat Exam Location: [facility]. Interpretation Summary Left ventricular systolic function is normal. The left ventricular ejection fraction is 61% by Patel's biplane. There are no segmental wall motion abnormalities. Left ventricular filling pressure is increased. Right ventricular systolic function is normal. No significant valvular disease. Compared with study of 5/14/19, no change. Procedure Complete-[id number]. Left ventricular strain. Satisfactory quality. There is [...] Note Aubrey Almeida MD - 04/23/2024 [address] [place] [address] Echocardiogram Report Name: GERSON BRUNER Study Date: 411:08 AMBP: 130/67 mmHg Patient Location: [address] : 1965 Height: 69 in Account: [id number] Age: 58 yrs Weight: 190 lb Gender: Male BSA: 2.0 m2 Ordering Physician: CLEVE GARRISON Referring Physician: NONE Performed By: Noe Gong RDCS Reason For Study: Irregular heart beat Exam Location: [facility]. Interpretation Summary Left ventricular systolic function is normal. The left ventricularejection fraction is 61% by Patel's biplane. There are no segmental wall motion abnormalities. Left ventricular filling pressure is increased. Right ventricular systolic function is normal. No significant valvular disease. Compared with study of 03/07/19, no change. Procedure Complete-[id number]. Left ventricular strain. Satisfactory quality. There isnormal [...] Glucose, POC 237(H) 65 - 199 mg/dL [facility] Comment: Supplemental ranges: <140 mg/dL before meals <180 mg/dL all other times of the day Blood 04/23/2024 7:38 AM EDT 04/23/2024 7:38 AM EDT Kristi Renae MD POINT OF CARE TEST O RDERABLES Performing Organization Address [facility]/ZIP Co de Phone Number [facility] [place] [address] * (ABNORMAL) Differential, Automated (04/23/2024 4:22 AM EDT) Neutrophil % 56.1 % [facility] Neutrophil Absolute 5.53 1.70 - 6.10 x10(3)/mc L [facility] Lymph % 21.0 % [facility] Lymphocytes Abs 2.1 0.9 - 3.2 x10(3)/mc L [facility] Monocyte % 18.3 % [facility] Monocyte Abs 1.8(H) 0.3 - 0.9 x10(3)/mc L [facility] Eos % 3.5 % [facility] Eosinophils Abs 0.4 0.0 - 0.4 x10(3)/ L [facility] Basophil % 0.7 % [facility] Baso Absolute 0.1 0.0 - 0.1 x10(3)/mc L [facility] Immature Gran % 0.40 % [facility] Comment: Immature granulocytes(IG's)percentage and absolute count will include metamyelocytes, myelocytes, and promyelocytes. Blood smears from CBCs yielding IG's will be scanned manually for concordance. If this scan disagrees with the automated IG or if promyelocytes are noted, a manual differential will be performed. Immature Gran Absolute 0.04 0.00 - 0.04 x10(3)/mc L [facility] Blood 04/23/2024 4:22 AM EDT 04/23/2024 5:14 AM EDT Narrative Resulting Agency Comment Spec In Lab Nikky Rao MD HEMATOLOGY ORDERA BLES Performing Organization Address [facility]/ZIP Co de Phone Number [facility] [place] [address] * (ABNORMAL) Hemogram (04/23/2024 4:22 AM EDT) White Blood Cell 9.9(H) 4.0 - 9.5 x10(3)/[facility] Red Blood Cell 3.32(L) 4.58 - 5.54 x10(6)/[facility] Hemoglobin 9.1(L) 13.7 - 16.5 g/dL [facility] Hematocrit 30.7(L) 40.5 - 48.5 % [facility] Mean Cell Volume 92.5 82.9 - 93.1 [facility] Mean Cell Hemoglobin 27.4(L) 27.5 - 32.[address] [facility] Mean Cell Hemoglobin Concentration 29.6(L) 32.0 - 35.7 g/dL [facility] Platelet 346 145 - 357 x10(3)/[facility] RDW Standard Deviation 55.0(H) 36.0 - 45.0 [facility] RDW coefficient of variation 16.1(H) 11.4 - 13.8 % [facility] Mean Platelet Volume 11.6 7.6 - 12.9 [facility] NRBC% auto 0.0 % [facility] NRBC Absolute 0.000 0.000 - 0.000 x10(3)/[facility] Blood 04/23/2024 4:22 AM EDT 04/23/2024 5:14 AM EDT Narrative Resulting Agency Comment Spec In Lab Nikky Rao MD HEMATOLOGY ORDERA BLES [facility] [place] [address] * (ABNORMAL) Phosphorus (04/23/2024 4:22 AM EDT) Phosphorus 5.6(H) 2.5 - 4.5 mg/dL [facility] Blood 04/23/2024 4:22 AM EDT 04/23/2024 5:14 AM EDT Narrative Resulting Agency Comment Spec In Lab Kristi Renae MD CHEMISTRY ORDERABLES Performing Organization Address City/[facility]/ZIP Co de Phone Number [facility] [place] [address] * Magnesium (04/23/2024 4:22 AM EDT) Magnesium 0.88 0.69 - 1.07 mmol/L [facility] Blood 04/23/2024 4:22 AM EDT 04/23/2024 5:14 AM EDT Narrative Resulting Agency Comment Spec In Lab Kristi Renae MD CHEMISTRY ORDERABLES Performing Organization Address [facility] Co de Phone Number [facility] [place] [address] * (ABNORMAL) Basic Metabolic Panel (non-fasting) (04/23/2024 4:22 AM EDT) Glucose 321(H) 65 - 199 mg/dL [facility] Comment:Diabetes: >=200 mg/d L plus symptoms Blood Urea Nitrogen 39(H) 10 - 20 mg/dL [facility] Creatinine 5.67(H) 0.80 - 1.50 mg/dL [facility] Comment:result rechecked- Sodium 137 135 - 145 mmol/L [facility] Potassium 4.7 3.5 - 5.0 mmol/L [facility] Comment: Please note: ??Patients with WBC >100,000 may have falsely elevated Potassium levels. ??For accurate Potassium quantification in these patients send serum separator tube (gold top) for subsequent determinations. ??Contact the Clinical Chemistry Laboratory if there are any questions. Chloride 97(L) 98 - 107 mmol/L [facility] Carbon Dioxide 28 22 - 31 mmol/L [facility] Anion Gap 12 5 - 15 mmol/L [facility] Calcium 9.1 8.5 - 10.5 mg/dL [facility] Est Glomerular Filtration Rate 11(L) >=60 mL/min/1. 73 m?? [facility] Comment: This patient's estimated GFR [...] Bryson MD CHEMISTRY ORDERABLES Performing Organization Address City/[facility]/ZIP Co de Phone Number [facility] [place] [address] * (ABNORMAL) POCT Glucose (04/23/2024 4:21 AM EDT) Glucose, POC 300(H) 65 - 199 mg/dL [facility] Comment: Supplemental ranges: <140 mg/dL before meals <180 mg/dL all other times of the day Blood 04/23/2024 4:21 AM EDT 04/23/2024 4:21 AM EDT Kristi Renae MD POINT OF CARE TEST O RDERABLES Performing Organization Address City/[facility]/ZIP Co de Phone Number [facility] [place] [address] * (ABNORMAL) POCT Glucose (04/23/2024 2:45 AM EDT) Glucose, POC 326(H) 65 - 199 mg/dL [facility] Comment: Supplemental ranges: <140 mg/dL before meals <180 mg/dL all other times of the day Blood 04/23/2024 2:45 AM EDT 04/23/2024 2:45 AM EDT Kristi Renae MD POINT OF CARE TEST O CARMELITA [facility] [place] [address] * (ABNORMAL) POCT Glucose (04/22/2024 11:54 PM EDT) Glucose, POC 366(H) 65 - 199 mg/dL [facility] Comment: Supplemental ranges: <140 mg/dL before meals <180 mg/dL all other times of the day Blood 04/22/2024 11:5 4 PM EDT 04/22/2024 11:54 PM EDT Kristi Renae MD POINT OF CARE TEST O CARMELITA Performing Organization Address [facility]/ZIP Co de Phone Number [facility] [place] [address] * (ABNORMAL) POCT Glucose (04/22/2024 10:10 PM EDT) Glucose, POC 390(H) 65 - 199 mg/dL [facility] Comment: Supplemental ranges: <140 mg/dL before meals <180 mg/dL all other times of the day Blood 04/22/2024 10:1 0 PM EDT 04/22/2024 10:10 PM EDT Kristi Renae MD POINT OF CARE TEST O CARMELITA [facility] [place] [address] * (ABNORMAL) POCT Glucose (04/22/2024 8:19 PM EDT) Glucose, POC 319(H) 65 - 199 mg/dL [facility] Comment: Supplemental ranges: <140 mg/dL before meals <180 mg/dL all other times of the day Blood 04/22/2024 8:19 PM EDT 04/22/2024 8:19 PM EDT Kristi Renae MD POINT OF CARE TEST O RDERABLES Performing Organization Address City/[facility] Co de Phone Number [facility] [place] [address] * (ABNORMAL) POCT Glucose (04/22/2024 4:48 PM EDT) Glucose, POC 256(H) 65 - 199 mg/dL [facility] Comment: Supplemental ranges: <140 mg/dL before meals <180 mg/dL all other times of the day Blood 04/22/2024 4:48 PM EDT 04/22/2024 4:48 PM EDT Kristi Renae MD POINT OF CARE TEST O RDERABLES Performing Organization Address [facility] Co de Phone Number [facility] [place] [address] * Vancomycin Level, Random (04/22/2024 12:24 PM EDT) Vancomycin, Random 15.6 mg/L [facility] Comment: This level is for determination of the patient's vancomycin anrn-onjwv-bnd-curve (AUC) value. Contact the inpatient pharmacy for interpretation. Blood 04/22/2024 12:2 4 PM EDT 04/22/2024 12:32 PM EDT Kristi Renae MD CHEMISTRY ORDERABLES Performing Organization Address [facility] Co de Phone Number [facility] [place] [address] * (ABNORMAL) POCT Glucose (04/22/2024 12:09 PM EDT) Glucose, POC 202(H) 65 - 199 mg/dL [facility] Comment: Supplemental ranges: <140 mg/dL before meals <180 mg/dL all other times of the day Blood 04/22/2024 12:0 9 PM EDT 04/22/2024 12:09 PM EDT Kristi Renae MD POINT OF CARE TEST O RDERAKEREN Performing Organization Address [facility] de Phone Number [facility] [place] [address] * EKG 12 Lead (04/22/2024 10:51 AM EDT) Ventricular rate 108 BPM MUSE SYSTEM QRS Duration 88 ms MUSE SYSTEM Q-T Interval 358 ms MUSE SYSTEM QTC Calculated (Bezet) 479 ms MUSE SYSTEM Calculated R [place] 8 degrees MUSE SYSTEM Calculated T [place] 68 degrees MUSE SYSTEM INTERPRETATION Atrial fibrillation with rapid ventricular response Abnormal ECG When compared with ECG of 20-APR-2024 18:34, Atrial fibrillation has replaced Sinus rhythm Questionable change in QRS axis Confirmed by MD Monica, [place] ([id number]) on 04/26/2024 4:32:43 PM MUSE SYSTEM 04/22/2024 10:5 1 AM EDT 04/26/2024 4:32 PM EDT Dariana Ortizersoll MONA ECG ORDERABLES Performing Organization Address [facility] de Phone Number MUSE SYSTEM * POCT Glucose (04/22/2024 7:48 AM EDT) Glucose, POC 196 65 - 199 mg/dL [facility] Comment: Supplemental ranges: <140 mg/dL before meals <180 mg/dL all other times of the day Blood 04/22/2024 7:48 AM EDT 04/22/2024 7:48 AM EDT Kristi Renae MD POINT OF CARE TEST O RDLIEN Performing Organization Address [facility] Co de Phone Number [facility] [place] [address] * POCT Glucose (04/22/2024 4:41 AM EDT) Glucose, POC 176 65 - 199 mg/dL [facility] Comment: Supplemental ranges: <140 mg/dL before meals <180 mg/dL all other times of the day Blood 04/22/2024 4:41 AM EDT 04/22/2024 4:41 AM EDT Kristi Renae MD POINT OF CARE TEST O RDERABLES Performing Organization Address City/[facility]/ZIP Co de Phone Number [facility] [place] [address] * (ABNORMAL) Phosphorus (04/22/2024 4:36 AM EDT) Phosphorus 7.9(H) 2.5 - 4.5 mg/dL [facility] Blood Venous Draw / Unknown 04/22/2024 4:36 AM EDT 04/22/2024 5:01 AM EDT Narrative Resulting Agency Comment Spec In Lab Russell Cohen MD CHEMISTRY ORDERA BLES Performing Organization Address [facility] Co de Phone Number [facility] [place] [address] * Magnesium (04/22/2024 4:36 AM EDT) Magnesium 0.86 0.69 - 1.07 mmol/L [facility] Blood Venous Draw / Unknown 04/22/2024 4:36 AM EDT 04/22/2024 5:01 AM EDT Narrative Resulting Agency Comment Spec In Lab Russell Cohen MD CHEMISTRY ORDERA BLES Performing Organization Address City/[facility]/ZIP Co de Phone Number [facility] [place] [address] * Scan, Peripheral Blood (04/22/2024 4:36 AM EDT) Plat estimate Normal [facility] RBC Morphology Abnormal [facility] Hypochromia Slight [facility] Blood 04/22/2024 4:36 AM EDT 04/22/2024 4:56 AM EDT Narrative Resulting Agency Comment Spec In Lab Nikky Rao MD HEMATOLOGY ORDERA BLES [facility] [place] [address] * (ABNORMAL) Differential, Automated (04/22/2024 4:36 AM EDT) Pathologist [facility] Neutrophil % 71.9 % [facility] Neutrophil Absolute 10.83(H) 1.70 - 6.10 x10(3)/ L [facility] Lymph % 11.3 % [facility] Lymphocytes Abs 1.7 0.9 - 3.2 x10(3)/ L [facility] Monocyte % 14.2 % [facility] Monocyte Abs 2.1(H) 0.3 - 0.9 x10(3)/ L [facility] Eos % 1.7 % [facility] Eosinophils Abs 0.2 0.0 - 0.4 x10(3)/ L [facility] Basophil % 0.4 % [facility] Baso Absolute 0.1 0.0 - 0.1 x10(3)/mc L [facility] Immature Gran % 0.50 % [facility] Comment: Immature granulocytes(IG's)percentage and absolute count will include metamyelocytes, myelocytes, and promyelocytes. Blood smears from CBCs yielding IG's will be scanned manually for concordance. If this scan disagrees with the automated IG or if promyelocytes are noted, a manual differential will be performed. Immature Gran Absolute 0.07(H) 0.00 - 0.04 x10(3)/mc L [facility] Blood 04/22/2024 4:36 AM EDT 04/22/2024 4:56 AM EDT Narrative Resulting Agency Comment Spec In Lab Nikky Rao MD HEMATOLOGY ORDERA BLES [facility] [place] [address] * (ABNORMAL) Hemogram (04/22/2024 4:36 AM EDT) White Blood Cell 15.0(H) 4.0 - 9.5 x10(3)/[facility] Red Blood Cell 3.08(L) 4.58 - 5.54 x10(6)/[facility] Hemoglobin 8.5(L) 13.7 - 16.5 g/dL [facility] Hematocrit 28.6(L) 40.5 - 48.5 % [facility] Mean Cell Volume 92.9 82.9 - 93.[address] [facility] Mean Cell Hemoglobin 27.6 27.5 - 32.[address] [facility] Mean Cell Hemoglobin Concentration 29.7(L) 32.0 - 35.7 g/dL [facility] Platelet 328 145 - 357 x10(3)/[facility] RDW Standard Deviation 54.1(H) 36.0 - 45.0 [facility] RDW coefficient of variation 15.9(H) 11.4 - 13.8 % [facility] Mean Platelet Volume 11.3 7.6 - 12.9 [facility] NRBC% auto 0.0 % [facility] NRBC Absolute 0.000 0.000 - 0.000 x10(3)/[facility] Blood 04/22/2024 4:36 AM EDT 04/22/2024 4:56 AM EDT Narrative Resulting Agency Comment Spec In Lab Nikky Rao MD HEMATOLOGY ORDERA BLES [facility] [place] [address] * (ABNORMAL) Basic Metabolic Panel (non-fasting) (04/22/2024 4:36 AM EDT) Glucose 195 65 - 199 mg/dL [facility] Comment:Diabetes: >=200 mg/d L plus symptoms Blood Urea Nitrogen 39(H) 10 - 20 mg/dL [facility] Creatinine 6.97(H) 0.80 - 1.50 mg/dL [facility] Comment:result rechecked-bz Sodium 138 135 - 145 mmol/L [facility] Potassium 5.3(H) 3.5 - 5.0 mmol/L [facility] Comment: Please note: ??Patients with WBC >100,000 may have falsely elevated Potassium levels. ??For accurate Potassium quantification in these patients send serum separator tube (gold top) for subsequent determinations. ??Contact the Clinical Chemistry Laboratory if there are any questions. Chloride 99 98 - 107 mmol/L [facility] Carbon Dioxide 22 22 - 31 mmol/L [facility] Anion Gap 17(H) 5 - 15 mmol/L [facility] Calcium 8.4(L) 8.5 - 10.5 mg/dL [facility] Est Glomerular Filtration Rate 9(L) >=60 mL/min/1. 73 m?? [facility] Comment: This patient's estimated GFR [...] Bryson MD CHEMISTRY ORDERABLES Performing Organization Address [facility]/ZIP Co de Phone Number [facility] [place] [address] * POCT Glucose (04/21/2024 11:01 PM EDT) Pathologist [facility] Glucose, POC 147 65 - 199 mg/dL [facility] Comment: Supplemental ranges: <140 mg/dL before meals <180 mg/dL all other times of the day Blood 04/21/2024 11:0 1 PM EDT 04/21/2024 11:01 PM EDT Kristi Renae MD POINT OF CARE TEST O RDERABLES Performing Organization Address [facility]/ZIP Co de Phone Number [facility] [place] [address] * Type and Screen Validity (04/21/2024 7:56 PM EDT) T&S only valid at [facility] Comment:This Type and Screen result is only valid at the [facility] Blood 04/21/2024 7:56 PM EDT 04/21/2024 7:56 PM EDT Narrative Resulting Agency Comment Spec In Lab Jules Osborne MD BLOOD BANK LAB ORD ERABLES Performing Organization Address City/[facility]/ZIP Co de Phone Number [facility] [place] [address] * Type and screen ([facility]CGP/CHASE) (04/21/2024 7:56 PM EDT) ABORH Type A POSITIVE [facility] Patient BB History Found [facility] Expires at [id number] on: 04/24/2024 [facility] Ab Screen Interp Negative [facility] Blood 04/21/2024 7:56 PM EDT 04/21/2024 7:[address] [facility] - 04/21/2024 7:56 PM EDT This Type and Screen result is only valid at the [facility] Resulting Agency Comment Spec In Lab Kristi Renae MD BLOOD BANK LAB ORDER FRANSISCO [facility] [place] [place] [address] * POCT Glucose (04/21/2024 7:30 PM EDT) Glucose, POC 139 65 - 199 mg/dL [facility] Comment: Supplemental ranges: <140 mg/dL before meals <180 mg/dL all other times of the day Blood 04/21/2024 7:30 PM EDT 04/21/2024 7:30 PM EDT Kristi Renae MD POINT OF CARE TEST O RDERAKEREN Performing Organization Address City/[facility]/ZIP Co de Phone Number [facility] [place] [place] [address] * POCT Glucose (04/21/2024 5:36 PM EDT) Glucose, POC 140 65 - 199 mg/dL [facility] Comment: Supplemental ranges: <140 mg/dL before meals <180 mg/dL all other times of the day Blood 04/21/2024 5:36 PM EDT 04/21/2024 5:36 PM EDT Kristi Renae MD POINT OF CARE TEST O RDERAKEREN [facility] [place] [address] * Surgical Pathology Report (04/21/2024 5:35 PM EDT) Final Diagnosis [id number] ? Location: [id number]; 0420; A The signing [...] Govea Verified: ??05/03/2024 12:50 ??Pathologist Performed at: ??-[facility] Dept. of Pathology, [place] [address] Supervisor Stage Carpentry: Karina Valencia MD, FCAP, ??CLIA Certificate: [id number] SPECIMEN(S) SUBMITTED A - Right leg CLINICAL [...] Sections/Processi ng: Blocks submitted for decalcification: A3-A4. Trash Collector Supervisor sections in 4 cassettes as follows: ?A1: ??Skin and muscle section at margin ?A2: ??Ulcer with underlying soft tissue ?A3: ??Bone underlying ulcer ?A4: ??Cross-sections of anterior tibial artery, posterior tibial artery, and ? dorsalis pedis ??JSH/SNS 05/03/2024 12:[address] [facility] Extremity 04/21/2024 5:35 PM EDT 04/21/2024 5:35 PM EDT Devendra Red MD PATHOLOGY/CYTOLOGY O RDERABLES Performing Organization Address [facility] de Phone Number [facility] [place] [address] * Specimen to Pathology (04/21/2024 5:35 PM EDT) AP Specimen 04/21/2024 5:35 PM EDT 04/21/2024 5:[address] [facility] - 04/21/2024 5:35 PM EDT Specimen requisition ordered. ??Separate Pathology report to follow Kristi Renae MD PATHOLOGY/CYTOLOGY O RDERABLES Performing Organization Address [facility] de Phone Number [facility] [place] [address] * Anaerobic Culture (04/21/2024 5:07 PM EDT) Anaerobic Culture No anaerobic organisms isolated [facility] Drainage RIGHT HEEL STRUCTURE / Unknown 04/21/2024 5:07 PM EDT 04/21/2024 7:39 PM EDT Narrative Resulting Agency Comment Spec In Lab Devendra Red MD MICROBIOLOGY - GENER AL ORDERABLES Performing Organization Address [facility] Co de Phone Number [facility] [place] [address] * (ABNORMAL) Abscess/Wound Aspirate Culture (04/21/2024 5:07 PM EDT) Abscess/Wound Aspirate Culture Many mixed bacterial morphotypes suggestive of normal cutaneous moy including : mixed Gram Negative organisms (A) [facility] Gram Stain Rare Neutrophils Few Gram Positive Cocci seen (A) [facility] Organism Gram Positive Cocci(A) [facility] Drainage RIGHT HEEL STRUCTURE / Unknown 04/21/2024 5:07 PM EDT 04/21/2024 7:39 PM EDT Narrative Resulting Agency Comment Spec In Lab Devendra Red MD MICROBIOLOGY - GENER AL ORDERABLES Performing Organization Address City/[facility]/[place] [address] * Magnesium (04/21/2024 4:24 PM EDT) Magnesium 0.82 0.69 - 1.07 mmol/L [facility] Blood 04/21/2024 4:24 PM EDT 04/21/2024 4:37 PM EDT Narrative Resulting Agency Comment Spec In Lab Kristi Renae MD CHEMISTRY ORDERABLES Performing Organization Address City/[facility]/ZIP Co de Phone Number [facility] [place] [address] * (ABNORMAL) Phosphorus (04/21/2024 4:24 PM EDT) Phosphorus 4.7(H) 2.5 - 4.5 mg/dL [facility] Blood 04/21/2024 4:24 PM EDT 04/21/2024 4:37 PM EDT Narrative Resulting Agency Comment Spec In Lab Kristi Renae MD CHEMISTRY ORDERABLES [facility] [place] [address] * (ABNORMAL) Basic Metabolic Panel (non-fasting) (04/21/2024 4:24 PM EDT) Glucose 142 65 - 199 mg/dL [facility] Comment:Diabetes: >=200 mg/d L plus symptoms Blood Urea Nitrogen 32(H) 10 - 20 mg/dL [facility] Creatinine 5.70(H) 0.80 - 1.50 mg/dL [facility] Comment:result rechecked-KD Sodium 137 135 - 145 mmol/L [facility] Potassium 4.6 3.5 - 5.0 mmol/L [facility] Comment: Please note: ??Patients with WBC >100,000 may have falsely elevated Potassium levels. ??For accurate Potassium quantification in these patients send serum separator tube (gold top) for subsequent determinations. ??Contact the Clinical Chemistry Laboratory if there are any questions. Chloride 97(L) 98 - 107 mmol/L [facility] Carbon Dioxide 21(L) 22 - 31 mmol/L [facility] Anion Gap 19(H) 5 - 15 mmol/L [facility] Calcium 8.8 8.5 - 10.5 mg/dL [facility] Est Glomerular Filtration Rate 11(L) >=60 mL/min/1. 73 m?? [facility] Comment: This patient's estimated GFR [...] In Lab Kristi Renae MD CHEMISTRY ORDERABLES [facility] [place] [address] * (ABNORMAL) Hemogram (04/21/2024 4:24 PM EDT) White Blood Cell 19.8(H) 4.0 - 9.5 x10(3)/mc L [facility] Red Blood Cell 3.35(L) 4.58 - 5.54 x10(6)/mc L [facility] Hemoglobin 9.4(L) 13.7 - 16.5 g/dL [facility] Hematocrit 29.8(L) 40.5 - 48.5 % [facility] Comment: This result has been called to DARIANA by Iliana Rangel on 04 21 2024 at 1644, and has been read back. OR said they were not waiting for results Mean Cell Volume 89.0 82.9 - 93.[address] [facility] Mean Cell Hemoglobin 28.1 27.5 - 32.[address] [facility] Mean Cell Hemoglobin Concentration 31.5(L) 32.0 - 35.7 g/dL [facility] Platelet 348 145 - 357 x10(3)/ L [facility] RDW Standard Deviation 51.5(H) 36.0 - 45.0 [facility] RDW coefficient of variation 15.8(H) 11.4 - 13.8 % [facility] Mean Platelet Volume 11.2 7.6 - 12.9 [facility] NRBC% auto 0.0 % [facility] NRBC Absolute 0.000 0.000 - 0.000 x10(3)/ L [facility] Blood 04/21/2024 4:24 PM EDT 04/21/2024 4:37 PM EDT Narrative Resulting Agency Comment Spec In Lab Kristi Renae MD HEMATOLOGY ORDERABLE S Performing Organization Address City/[facility]/ZIP Co de Phone Number [facility] [place] [place] [address] * POCT Glucose (04/21/2024 4:07 PM EDT) Glucose, POC 137 65 - 199 mg/dL [facility] Comment: Supplemental ranges: <140 mg/dL before meals <180 mg/dL all other times of the day Blood 04/21/2024 4:07 PM EDT 04/21/2024 4:07 PM EDT Kristi Renae MD POINT OF CARE TEST O RDERAKEREN Performing Organization Address [facility] Co de Phone Number [facility] [place] [address] * POCT Glucose (04/21/2024 11:25 AM EDT) Glucose, POC 183 65 - 199 mg/dL [facility] Comment: Supplemental ranges: <140 mg/dL before meals <180 mg/dL all other times of the day Blood 04/21/2024 11:2 5 AM EDT 04/21/2024 11:25 AM EDT Kristi Renae MD POINT OF CARE TEST O CARMELITA Performing Organization Address City/[facility]/ZIP Co de Phone Number [facility] [place] [address] * POCT Glucose (04/21/2024 7:51 AM EDT) Glucose, POC 172 65 - 199 mg/dL [facility] Comment: Supplemental ranges: <140 mg/dL before meals <180 mg/dL all other times of the day Blood 04/21/2024 7:51 AM EDT 04/21/2024 7:51 AM EDT Kristi Renae MD POINT OF CARE TEST O RDERABLES Performing Organization Address [facility] Co de Phone Number [facility] [place] [address] * Lavender Tube HOLD (04/21/2024 7:39 AM EDT) [facility] Lavender Hold Sample in lab. [facility] Blood Venous Draw / Unknown 04/21/2024 7:39 AM EDT 04/21/2024 7:[address] Rei Gasca MD HEMATOLOGY ORDERABLE S Performing Organization Address [facility] Co de Phone Number [facility] [place] [address] * Vancomycin Level, Random (04/21/2024 7:39 AM EDT) [facility] Vancomycin, Random 14.1 mg/L [facility] Comment: This level is for determination of the patient's vancomycin rqka-poonr-bym-curve (AUC) value. Contact the inpatient pharmacy for interpretation. Blood 04/21/2024 7:39 AM EDT 04/21/2024 7:48 AM EDT Sourav Bryson MD CHEMISTRY ORDERABLES Performing Organization Address [facility] Co de Phone Number [facility] [place] [address] * (ABNORMAL) POCT Glucose (04/21/2024 4:13 AM EDT) [facility] Glucose, POC 207(H) 65 - 199 mg/dL [facility] Comment: Supplemental ranges: <140 mg/dL before meals <180 mg/dL all other times of the day Blood 04/21/2024 4:13 AM EDT 04/21/2024 4:13 AM EDT Kristi Renae MD POINT OF CARE TEST O RDMARISOLBLES Performing Organization Address [facility]/ZIP Co de Phone Number [facility] [place] [address] * POCT Glucose (04/21/2024 1:54 AM EDT) Glucose, POC 183 65 - 199 mg/dL [facility] Comment: Supplemental ranges: <140 mg/dL before meals <180 mg/dL all other times of the day Blood 04/21/2024 1:54 AM EDT 04/21/2024 1:54 AM EDT Kristi Renae MD POINT OF CARE TEST O CARMELITA Performing Organization Address City/[facility]/ZIP Co de Phone Number [facility] [place] [address] * POCT Glucose (04/20/2024 11:59 PM EDT) Glucose, POC 172 65 - 199 mg/dL [facility] Comment: Supplemental ranges: <140 mg/dL before meals <180 mg/dL all other times of the day Blood 04/20/2024 11:5 9 PM EDT 04/20/2024 11:59 PM EDT Kristi Renae MD POINT OF CARE TEST O CARMELITA [facility] [place] [address] * (ABNORMAL) BLOOD GAS 2 VENOUS (04/20/2024 11:34 PM EDT) pH, Venous 7.37 7.32 - 7.42 [facility] PCO2, Venous 44 41 - [address] [facility] PO2, Venous 41(H) 25 - [address] [facility] Bicarbonate, Venous 24.9 mmol/L [facility] Base Excess, Venous -0.4 mmol/L [facility] Hgb Blood Gas 9.6(L) 13.7 - 16.5 g/dL [facility] Oxyhemoglobin, Venous 69.9 % [facility] Carboxyhemoglob in, Venous 1.1 % [facility] Comment: Nonsmokers: 0.5-1.5% COHB Smokers: Variable, but usually less than 10% Toxic: 20-30% COHB Lethal: Greater than 60% COHB Methemoglobin, Venous 0.6 <=1.5 % [facility] Na Whole Blood 130(L) 135 - 145 mmol/L [facility] K Whole Blood 4.9 3.5 - 5.0 mmol/L [facility] Comment: Please note: Patients with WBC >100,000 may have falsely elevated Potassium levels. Contact the Clinical Chemistry Laboratory if there are any questions. ICa Whole Blood 1.13(L) 1.15 - 1.33 mmol/L [facility] Comment: Note: ??Total bilirubin higher than 20 mg/dL may lead to falsely low ionized calcium. CL Whole Blood 95(L) 98 - 107 mmol/L [facility] Gluc Whole Bld 182 65 - 199 mg/dL [facility] Comment:Diabetes: >=200 mg/d L plus symptoms Lactate WB 1.0 0.5 - 2.2 mmol/L [facility] Blood Gas Source Venous [facility] Blood 04/20/2024 11:3 4 PM EDT 04/20/2024 11:34 PM EDT Kristi Renae MD POINT OF CARE TEST O RDERABLES [facility] [place] [address] * (ABNORMAL) Differential, Automated (04/20/2024 11:32 PM EDT) Neutrophil % 72.5 % [facility] Neutrophil Absolute 12.43(H) 1.70 - 6.10 x10(3)/mc L [facility] Lymph % 8.9 % [facility] Lymphocytes Abs 1.5 0.9 - 3.2 x10(3)/mc L [facility] Monocyte % 16.9 % [facility] Monocyte Abs 2.9(H) 0.3 - 0.9 x10(3)/[facility] Eos % 0.8 % [facility] Eosinophils Abs 0.1 0.0 - 0.4 x10(3)/[facility] Basophil % 0.4 % [facility] Baso Absolute 0.1 0.0 - 0.1 x10(3)/[facility] Immature Gran % 0.50 % [facility] Comment: Immature granulocytes(IG's)percentage and absolute count will include metamyelocytes, myelocytes, and promyelocytes. Blood smears from CBCs yielding IG's will be scanned manually for concordance. If this scan disagrees with the automated IG or if promyelocytes are noted, a manual differential will be performed. Immature Gran Absolute 0.09(H) 0.00 - 0.04 x10(3)/[facility] Blood 04/20/2024 11:3 2 PM EDT 04/20/2024 11:38 PM EDT Narrative Resulting Agency Comment Spec In Lab Nikky Rao MD HEMATOLOGY ORDERA BLES [facility] [place] [address] * (ABNORMAL) Hemogram (04/20/2024 11:32 PM EDT) White Blood Cell 17.1(H) 4.0 - 9.5 x10(3)/[facility] Red Blood Cell 3.20(L) 4.58 - 5.54 x10(6)/[facility] Hemoglobin 8.9(L) 13.7 - 16.5 g/dL [facility] Hematocrit 28.8(L) 40.5 - 48.5 % [facility] Mean Cell Volume 90.0 82.9 - 93.[address] [facility] Mean Cell Hemoglobin 27.8 27.5 - 32.[address] [facility] Mean Cell Hemoglobin Concentration 30.9(L) 32.0 - 35.7 g/dL [facility] Platelet 340 145 - 357 x10(3)/mc L [facility] RDW Standard Deviation 52.2(H) 36.0 - 45.[address] [facility] RDW coefficient of variation 15.8(H) 11.4 - 13.8 % [facility] Mean Platelet Volume 11.0 7.6 - 12.[address] [facility] NRBC% auto 0.0 % [facility] NRBC Absolute 0.000 0.000 - 0.000 x10(3)/mc L [facility] Blood 04/20/2024 11:3 2 PM EDT 04/20/2024 11:38 PM EDT Narrative Resulting Agency Comment Spec In Lab Nikky Rao MD HEMATOLOGY ORDERA BLES [facility] [place] [address] * (ABNORMAL) Basic Metabolic Panel (non-fasting) (04/20/2024 11:32 PM EDT) Glucose 185 65 - 199 mg/dL [facility] Comment:Diabetes: >=200 mg/d L plus symptoms Blood Urea Nitrogen 42(H) 10 - 20 mg/dL [facility] Creatinine 7.05(H) 0.80 - 1.50 mg/dL [facility] Sodium 132(L) 135 - 145 mmol/L [facility] Potassium 5.1(H) 3.5 - 5.0 mmol/L [facility] Comment: Please note: ??Patients with WBC >100,000 may have falsely elevated Potassium levels. ??For accurate Potassium quantification in these patients send serum separator tube (gold top) for subsequent determinations. ??Contact the Clinical Chemistry Laboratory if there are any questions. Chloride 95(L) 98 - 107 mmol/L [facility] Carbon Dioxide 23 22 - 31 mmol/L [facility] Anion Gap 14 5 - 15 mmol/L [facility] Calcium 8.7 8.5 - 10.5 mg/dL [facility] Est Glomerular Filtration Rate 8(L) >=60 mL/min/1. 73 m?? [facility] Comment: This patient's estimated GFR [...] Renae MD CHEMISTRY ORDERABLES Performing Organization Address [facility]/ZIP Co de Phone Number [facility] [place] [address] * POCT Glucose (04/20/2024 11:07 PM EDT) Glucose, POC 197 65 - 199 mg/dL [facility] Comment: Supplemental ranges: <140 mg/dL before meals <180 mg/dL all other times of the day Blood 04/20/2024 11:0 7 PM EDT 04/20/2024 11:07 PM EDT Kristi Renae MD POINT OF CARE TEST O RDERABLES Performing Organization Address City/[facility]/ZIP Co de Phone Number [facility] [place] [address] * (ABNORMAL) Phosphorus (04/20/2024 10:17 PM EDT) Phosphorus 5.8(H) 2.5 - 4.5 mg/dL [facility] Blood 04/20/2024 10:1 7 PM EDT 04/20/2024 10:17 PM EDT Narrative Resulting Agency Comment Spec In Lab Sourav Bryson MD CHEMISTRY ORDERABLES Performing Organization Address [facility]/ZIP Co de Phone Number [facility] [place] [address] * Magnesium (04/20/2024 10:17 PM EDT) Pathologist [facility] Magnesium 0.83 0.69 - 1.07 mmol/L [facility] Blood 04/20/2024 10:1 7 PM EDT 04/20/2024 10:17 PM EDT Narrative Resulting Agency Comment Spec In Lab Sourav Bryson MD CHEMISTRY ORDERABLES Performing Organization Address [facility]/ZIP Co de Phone Number [facility] [place] [address] * (ABNORMAL) Basic Metabolic Panel (non-fasting) (04/20/2024 10:17 PM EDT) Glucose 195 65 - 199 mg/dL [facility] Comment:Diabetes: >=200 mg/d L plus symptoms Blood Urea Nitrogen 41(H) 10 - 20 mg/dL [facility] Creatinine 6.58(H) 0.80 - 1.50 mg/dL [facility] Sodium 132(L) 135 - 145 mmol/L [facility] Potassium Not Perf 3.5 - 5.0 [facility] Comment: Unable to quantitate due to [...] questions. Chloride 97(L) 98 - 107 mmol/L [facility] Carbon Dioxide 21(L) 22 - 31 mmol/L [facility] Anion Gap 14 5 - 15 mmol/L [facility] Calcium 8.5 8.5 - 10.5 mg/dL [facility] Est Glomerular Filtration Rate 9(L) >=60 mL/min/1. 73 m?? [facility] Comment: This patient's estimated GFR [...] In Lab Sourav Bryson MD CHEMISTRY ORDERABLES [facility] [place] [address] * POCT Glucose (04/20/2024 9:56 PM EDT) Glucose, POC 173 65 - 199 mg/dL [facility] Comment: Supplemental ranges: <140 mg/dL before meals <180 mg/dL all other times of the day Blood 04/20/2024 9:56 PM EDT 04/20/2024 9:56 PM EDT Kristi Renae MD POINT OF CARE TEST O RDERABLES [facility] [place] [address] * POCT Glucose (04/20/2024 7:40 PM EDT) Pathologist [facility] Glucose, POC 153 65 - 199 mg/dL [facility] Comment: Supplemental ranges: <140 mg/dL before meals <180 mg/dL all other times of the day Blood 04/20/2024 7:40 PM EDT 04/20/2024 7:40 PM EDT Kristi Renae MD POINT OF CARE TEST O CARMELITA Performing Organization Address [facility]/ZIP Co de Phone Number [facility] [place] [address] * (ABNORMAL) Differential, Automated (04/20/2024 7:39 PM EDT) [facility] Neutrophil % 70.9 % [facility] Neutrophil Absolute 12.08(H) 1.70 - 6.10 x10(3)/mc L [facility] Lymph % 8.6 % [facility] Lymphocytes Abs 1.5 0.9 - 3.2 x10(3)/mc L [facility] Monocyte % 18.9 % [facility] Monocyte Abs 3.2(H) 0.3 - 0.9 x10(3)/mc L [facility] Eos % 0.6 % [facility] Eosinophils Abs 0.1 0.0 - 0.4 x10(3)/mc L [facility] Basophil % 0.4 % [facility] Baso Absolute 0.1 0.0 - 0.1 x10(3)/mc L [facility] Immature Gran % 0.60 % [facility] Comment: Immature granulocytes(IG's)percentage and absolute count will include metamyelocytes, myelocytes, and promyelocytes. Blood smears from CBCs yielding IG's will be scanned manually for concordance. If this scan disagrees with the automated IG or if promyelocytes are noted, a manual differential will be performed. Immature Gran Absolute 0.10(H) 0.00 - 0.04 x10(3)/ L [facility] Blood 04/20/2024 7:39 PM EDT 04/20/2024 10:34 PM EDT Narrative Resulting Agency Comment Spec In Lab Nikky Rao MD HEMATOLOGY ORDERA BLES [facility] [place] [address] * (ABNORMAL) Hemogram (04/20/2024 7:39 PM EDT) White Blood Cell 17.0(H) 4.0 - 9.5 x10(3)/ L [facility] Red Blood Cell 2.93(L) 4.58 - 5.54 x10(6)/mc L [facility] Hemoglobin 8.3(L) 13.7 - 16.5 g/dL [facility] Hematocrit 25.9(L) 40.5 - 48.5 % [facility] Mean Cell Volume 88.4 82.9 - 93.[address] [facility] Mean Cell Hemoglobin 28.3 27.5 - 32.[address] [facility] Mean Cell Hemoglobin Concentration 32.0 32.0 - 35.7 g/dL [facility] Platelet 347 145 - 357 x10(3)/ L [facility] RDW Standard Deviation 52.6(H) 36.0 - 45.[address] [facility] RDW coefficient of variation 16.2(H) 11.4 - 13.8 % [facility] Mean Platelet Volume 11.7 7.6 - 12.[address] [facility] NRBC% auto 0.0 % [facility] NRBC Absolute 0.000 0.000 - 0.000 x10(3)/mc L [facility] Blood 04/20/2024 7:39 PM EDT 04/20/2024 10:34 PM EDT Narrative Resulting Agency Comment Spec In Lab Nikky Rao MD HEMATOLOGY ORDERA BLES Performing Organization Address [facility] Co de Phone Number [facility] [place] [address] * EKG 12 Lead (04/20/2024 6:34 PM EDT) Ventricular rate 77 BPM MUSE SYSTEM Atrial Rate 77 BPM MUSE SYSTEM P-R Interval 140 ms MUSE SYSTEM QRS Duration 80 ms MUSE SYSTEM Q-T Interval 390 ms MUSE SYSTEM QTC Calculated (Bezet) 441 ms MUSE SYSTEM Calculated P [place] 70 degrees MUSE SYSTEM Calculated R [place] 70 degrees MUSE SYSTEM Calculated T [place] 55 degrees MUSE SYSTEM INTERPRETATION Normal sinus rhythm Normal ECG When compared with ECG of 18-FEB-2024 14:42, No significant change was found Confirmed by MD Raffi, Oscar ([id number]) on 04/20/2024 9:23:41 PM MUSE SYSTEM 04/20/2024 6:34 PM EDT 04/20/2024 9:23 PM EDT Pau Burt APRN ECG ORDERABLES Performing Organization Address [facility] Co de Phone Number MUSE SYSTEM * (ABNORMAL) BLOOD GAS 2 VENOUS (04/20/2024 5:53 PM EDT) pH, Venous 7.41 7.32 - 7.42 [facility] PCO2, Venous 42 41 - [address] [facility] PO2, Venous 39 25 - [address] [facility] Bicarbonate, Venous 26.3 mmol/L [facility] Base Excess, Venous 1.6 mmol/L [facility] Hgb Blood Gas 10.1(L) 13.7 - 16.5 g/dL [facility] Oxyhemoglobin, Venous 70.8 % [facility] Carboxyhemoglob in, Venous 2.8 % [facility] Comment: Nonsmokers: 0.5-1.5% COHB Smokers: Variable, but usually less than 10% Toxic: 20-30% COHB Lethal: Greater than 60% COHB Methemoglobin, Venous 0.4 <=1.5 % [facility] Na Whole Blood 131(L) 135 - 145 mmol/L [facility] K Whole Blood 5.2(H) 3.5 - 5.0 mmol/L [facility] Comment: Please note: Patients with WBC >100,000 may have falsely elevated Potassium levels. Contact the Clinical Chemistry Laboratory if there are any questions. ICa Whole Blood 1.11(L) 1.15 - 1.33 mmol/L [facility] Comment: Note: ??Total bilirubin higher than 20 mg/dL may lead to falsely low ionized calcium. CL Whole Blood 94(L) 98 - 107 mmol/L [facility] Gluc Whole Bld 174 65 - 199 mg/dL [facility] Comment:Diabetes: >=200 mg/d L plus symptoms Lactate WB 1.1 0.5 - 2.2 mmol/L [facility] Blood Gas Source Venous [facility] Blood 04/20/2024 5:53 PM EDT 04/20/2024 5:53 PM EDT Sourav Bryson MD POINT OF CARE TEST O RDERABLES [facility] [place] [address] * XR Ankle Min 3 views Right (Generic) (04/20/2024 5:44 PM EDT) [employer] WORKSTATION ID [id number] RAD Anatomical Region Laterality Modality Ankle Right [...] who have questions please contact the health day care home mother that requested your imaging first. ? Electronically signed by: Ludmila Shea MD, [facility] ([phone]), at 04/20/2024 6:28 PM Narrative 04/20/2024 6:28 [...] patients who have questions please contactthe health day care home mother that requested your imaging first. Electronically signed by: Ludmila Shea MD, [facility] ([phone]), at 04/20/2024 6:28 PM Macario Thomas MD IMG DX ORDERABLES * XR Foot Min 3 views Right (Generic) (04/20/2024 5:44 PM EDT) WORKSTATION ID [id number] RAD Anatomical Region Laterality Modality Foot Right [...] who have questions please contact the health day care home mother that requested your imaging first. ? Electronically signed by: Ludmila Shea MD, [facility] ([phone]), at 04/20/2024 6:28 PM Narrative 04/20/2024 6:28 [...] patients who have questions please contactthe health day care home mother that requested your imaging first. Electronically signed by: Ludmila Shea MD, [facility] ([phone]), at 04/20/2024 6:28 PM Macario Thomas MD IMG DX ORDERABLES * XR Chest One View (04/20/2024 5:44 PM EDT) WORKSTATION ID [id number] RAD Anatomical Region Laterality Modality Chest N/A [...] who have questions please contact the health day care home mother that requested your imaging first. ? Electronically signed by: Ludmila Shea MD, [facility] ([phone]), at 04/20/2024 6:31 PM Narrative 04/20/2024 6:31 [...] patients who have questions please contactthe health day care home mother that requested your imaging first. Electronically signed by: Ludmila Shea MD, [facility] ([phone]), at 04/20/2024 6:31 PM Macario Thomas MD IMG DX ORDERABLES * Scan, Peripheral Blood (04/20/2024 5:09 PM EDT) Plat estimate Increased [facility] RBC Morphology Normal [facility] Blood 04/20/2024 5:09 PM EDT 04/20/2024 5:21 PM EDT Narrative Resulting Agency Comment Spec In Lab Pau Burt APRN HEMATOLOGY ORDERA BLES Performing Organization Address City/[facility]/ZIP Co de Phone Number [facility] [place] [address] * Bryson Tube Hold (04/20/2024 5:09 PM EDT) Bryson Hold Sample in lab. [facility] Blood Venous Draw / Unknown 04/20/2024 5:09 PM EDT 04/20/2024 5:22 PM EDT Pau Burt APRN CHEMISTRY ORDERAB LES Performing Organization Address [facility]/ZIP Co de Phone Number [facility] [place] [address] * Gold Tube HOLD (04/20/2024 5:09 PM EDT) Gold Hold Sample in lab. [facility] Blood Venous Draw / Unknown 04/20/2024 5:09 PM EDT 04/20/2024 5:21 PM EDT Pau Burt APRN CHEMISTRY ORDERAB LES Performing Organization Address City/[facility]/ZIP Co de Phone Number [facility] [place] [address] * Blue Tube HOLD (04/20/2024 5:09 PM EDT) Blue Hold Sample in lab. [facility] Blood Venous Draw / Unknown 04/20/2024 5:09 PM EDT 04/20/2024 5:22 PM EDT Pau Burt APRN HEMATOLOGY ORDERA BLES Performing Organization Address City/[facility]/ZIP Co de Phone Number [facility] [place] [address] * (ABNORMAL) Differential, Automated (04/20/2024 5:09 PM EDT) Neutrophil % 76.9 % [facility] Neutrophil Absolute 14.16(H) 1.70 - 6.10 x10(3)/mc L [facility] Lymph % 7.8 % [facility] Lymphocytes Abs 1.4 0.9 - 3.2 x10(3)/mc L [facility] Monocyte % 14.1 % [facility] Monocyte Abs 2.6(H) 0.3 - 0.9 x10(3)/mc L [facility] Eos % 0.3 % [facility] Eosinophils Abs 0.0 0.0 - 0.4 x10(3)/ L [facility] Basophil % 0.3 % [facility] Baso Absolute 0.1 0.0 - 0.1 x10(3)/ L [facility] Immature Gran % 0.60 % [facility] Comment: Immature granulocytes(IG's)percentage and absolute count will include metamyelocytes, myelocytes, and promyelocytes. Blood smears from CBCs yielding IG's will be scanned manually for concordance. If this scan disagrees with the automated IG or if promyelocytes are noted, a manual differential will be performed. Immature Gran Absolute 0.11(H) 0.00 - 0.04 x10(3)/mc L [facility] Blood 04/20/2024 5:09 PM EDT 04/20/2024 5:21 PM EDT Narrative Resulting Agency Comment Spec In Lab Pau Burt APRN HEMATOLOGY ORDERA BLES Performing Organization Address [facility]/ZIP Co de Phone Number [facility] [place] [address] * (ABNORMAL) Hemogram (04/20/2024 5:09 PM EDT) White Blood Cell 18.4(H) 4.0 - 9.5 x10(3)/[facility] Red Blood Cell 3.45(L) 4.58 - 5.54 x10(6)/[facility] Hemoglobin 9.6(L) 13.7 - 16.5 g/dL [facility] Hematocrit 30.8(L) 40.5 - 48.5 % [facility] Mean Cell Volume 89.3 82.9 - 93.1 [facility] Mean Cell Hemoglobin 27.8 27.5 - 32.[address] [facility] Mean Cell Hemoglobin Concentration 31.2(L) 32.0 - 35.7 g/dL [facility] Platelet 387(H) 145 - 357 x10(3)/[facility] RDW Standard Deviation 51.5(H) 36.0 - 45.0 [facility] RDW coefficient of variation 15.8(H) 11.4 - 13.8 % [facility] Mean Platelet Volume 11.3 7.6 - 12.9 [facility] NRBC% auto 0.0 % [facility] NRBC Absolute 0.000 0.000 - 0.000 x10(3)/[facility] LABORATORY Blood 04/20/2024 5:09 PM EDT 04/20/2024 5:21 PM EDT Narrative Resulting Agency Comment Spec In Lab Pau Burt APRN HEMATOLOGY ORDERA BLES [facility] [place] [address] * (ABNORMAL) Comprehensive metabolic panel (non-fasting) (04/20/2024 5:09 PM EDT) Pathologist [facility] Glucose 176 65 - 199 mg/dL [facility] Comment:Diabetes: >=200 mg/d L plus symptoms Blood Urea Nitrogen 41(H) 10 - 20 mg/dL [facility] Creatinine 6.27(H) 0.80 - 1.50 mg/dL [facility] Sodium 133(L) 135 - 145 mmol/L [facility] Potassium 5.5(H) 3.5 - 5.0 mmol/L [facility] Comment: Please note: ??Patients with WBC >100,000 may have falsely elevated Potassium levels. ??For accurate Potassium quantification in these patients send serum separator tube ([facility] top) for subsequent determinations. ??Contact the Clinical Chemistry Laboratory if there are any questions. Chloride 94(L) 98 - 107 mmol/L [facility] Carbon Dioxide 25 22 - 31 mmol/L [facility] Anion Gap 14 5 - 15 mmol/L [facility] Calcium 9.3 8.5 - 10.5 mg/dL [facility] Protein, Total 6.5 6.1 - 8.0 g/dL [facility] Albumin 3.2 3.2 - 5.2 g/dL [facility] Aspartate Aminotransferase 16 0 - 39 unit/L [facility] Alanine Aminotransferase 16 0 - 55 unit/L [facility] Alkaline Phosphatase 210(H) 40 - 130 unit/L [facility] Bilirubin, Total <0.2(L) 0.2 - 1.3 mg/dL [facility] Est Glomerular Filtration Rate 10(L) >=60 mL/min/1. 73 m?? [facility] Comment: This patient's estimated GFR [...] Agency Comment Spec In Lab Pau Burt MONA CHEMISTRY ORDERAB LES Performing Organization Address [facility] Co de Phone Number [facility] [place] [address] * Blood culture (04/20/2024 5:08 PM EDT) Blood Culture No growth at [address] [facility] Blood 04/20/2024 5:08 PM EDT 04/20/2024 6:29 PM EDT Comment:R Basilic Narrative Resulting Agency Comment Spec In Lab Macario Thomas MD MICROBIOLOGY - BLOOD ORDERABLES Performing Organization Address [facility] Co de Phone Number [facility] [place] [address] * Blood culture (04/20/2024 5:08 PM EDT) Blood Culture No growth at [address] [facility] Blood 04/20/2024 5:08 PM EDT 04/20/2024 6:30 PM EDT Comment:R Forearm Narrative Resulting Agency Comment Spec In Lab Macario Thomas MD MICROBIOLOGY - BLOOD ORDERABLES Performing Organization Address [facility] Co de Phone Number [facility] [place] [place] [address] * POCT Glucose (04/20/2024 4:51 PM EDT) Glucose, POC 179 65 - 199 mg/dL [facility] Comment: Supplemental ranges: <140 mg/dL before meals <180 mg/dL all other times of the day Blood 04/20/2024 4:51 PM EDT 04/20/2024 4:51 PM EDT Md Emergency Dept POINT [place] [address] documented in this encounter Visit Diagnoses Not [...] Subcutaneous, ONCE PRN, 1 dose, Starting on Wed04/20/24 at 1930, Until Wed04/29/24 at 1658, for discomfort with PIV insertion, [...] Basal Flow Rate (mL/hr): : 6 mL/hr, BUILDING REPAIR MAINTENANCE SUPERVISOR Bolus Amt: 3 mL, BUILDING REPAIR MAINTENANCE SUPERVISOR Bolus Frequency: 30 minutes, 1 Hour Dose [...] fluid balance at end of treatment, contact , Dialysis (Intra-Procedure) tiZANidine (Zanaflex) tablet 4 mg [...] Renetta Kaur RN)1805 (Given - Provider: Sofy Ross, VIDYA) 0759 (Given - Provider: Donavon Guzman RN) [...] parameters not met)0800 (Not Given - Provider: oSfy Ross RN - Reason: Order parameters not [...] Sara Pang RN)1134 (Given - Provider: Renetta aKur RN)1555 (Given - Provider: Sara Pang, VIDYA)2035 (Given - Provider: Iam Cardenas RN)2305 (Given - Provider: Gianluca Ge, VIDYA) 0523 (Given - Provider: Gianluca Ge, VIDYA)0800 (Not Given - Provider: Donavon Guzman RN [...] refused) 2130 (Patch Applied - Provider: Iam Cardenas, VIDYA) 0859 (Patch Removed - Provider: Ara Eastman RN) lisinopriL (Zestril) tablet 10 mg 10 mg, Oral, DAILY, First dose on Wed04/29/24 at 1400, Until Discontinued, Routine 1352 (Given - Provider: Donavon Guzman, VIDYA) pantoprazole EC (Protonix) tablet 40 mg [...] by pharmacy policy Warning Vesicant/Irritant Medication Per pipe joints supervisor labeling, do not administer or Y-site with [...] Sofy Ross RN)2002 (Given - Provider: Concetta Canchola, VIDYA) 0826 (Given - Provider: Sara Pang RN)203 [...] Sara Pang RN)1133 (Given - Provider: Renetta Kaur RN)1804 (Given - Provider: Sofy Ross [...] Basal Flow Rate (mL/hr): : 6 mL/hr, BUILDING REPAIR MAINTENANCE SUPERVISOR Bolus Amt: 3 mL, BUILDING REPAIR MAINTENANCE SUPERVISOR Bolus Frequency: 30 minutes, 1 Hour Dose [...] Canchola RN)1134 (See Alternative - Provider: Renetta Kaur, VIDYA)1551 (See Alternative - Provider: Sara Pang, RN)2158 (See Alternative - Provider: Gianluca Ge [...] Ross, RN)2303 (Given - Provider: Gianluca Ge, RN) lidocaine (Xylocaine) 1% (10 mg/mL) injection 3 [...] Routine documented in this encounter Care Teams Content Writer Relationship Specialty Start Date End Date Ken Greer MD PCP - General Family Medicine 12/30/23 05/15/24 documented as of this encounter
--- OUTSIDE RECORDS SUMMARY | 2024-12-05 12:36 | XMS_ITS | Encounter Summary ---
Author Organization [facility] Address [facility] [place] [address] Care Team Providers Care Hothouse Worker Name Role Phone Ken Greer MD Primary Care Provider Encounter Details Date Type Department Care Team (Late st Contact Info) Description 04/19/2024 Telephone [place] [address] Aditi Bolaños, RN Social History Tobacco Use Types Packs/Day [...] place to sleep or slept in a detention (including now)? No 02/20/2024 Housing Stability Vital [...] living in a detention (including now)? No 04/21/2024 DH IPV Inpatient [...] encounter Miscellaneous Notes * Telephone Encounter - Aditi Bolaños RN - 04/19/2024 9:19 AM EDTSummary: patient spouse call [facility] Telephone Triage Note Patient Name: Gerson Bruner : 1965 [id number] Caller: patients spouse Chief Complaint/reason for call odor from right foot wound and increasing discomfort in the wound Type of Wound Diabetic foot ulcer Location and laterality right foot Drainage serous Home Health Agency: No Associated symptoms: PER PATIENT REPORT ONSET Diabetes (if yes, last Blood sugar) yes Last BS reading is unknown Fever (temp >100.4) Denies Chills Denies Sweats Denies Nausea / Vomiting Denies Change in Mental Status Denies Change in Appetite Denies Change in bowel or bladder function Denies Fatigue/general malaise Denies SOB Denies Edema / Worsening Edema Positive This morning Pain / Worsening Pain Positive Yesterday Erythema/Warmth Denies Drainage/ Increased Drainage Denies Description of drainage serous Odor positive yesterday Precipitated/aggravated by: Nothing they can recall Alleviating factors: none Disposition: Recommended evaluation in ER. Not at this time. If symptoms worsen, report to ED. Recommended evaluation in Urgent Care no Scheduled f/u appt in wound clinic Yes for wound check tomorrow Recommended f/u appt with PCP no Home care instructions: Cleanse wound with vashe Patients' Plan of Care/Recommendations/Disposition- Patient will arrive to wound clinic tomorrow for a wound check. Patient will arrive via private vehicle. Patient Education Provided - offloading, remaining off his foot. Cleansing the wound. Patients spouse instructed to monitor for signs of infection which may include: Fever Sweats Chills Nausea, Vomiting or Diarrhea Unexplained increase in Blood Glucose levels At or around the wound site: Increased pain Swelling or edema Redness Warmth Purulent drainage (thick yellowish/greenish) Malodor Patient spouse instructed if Symptoms Worsen- Report to the Urgent Care/ Emergency room for evaluation/treatment Patient spouse Teach Back/Response- Patient spouse was able to verbally repeat back instructions/recommendations provided to her and patient verbally expressed understanding of instructions/recommendations provided to her. [facility] [phone] with any above symptoms Wednesday-Wednesday 8:00AM-4:00PM. If weekends / holidays / evenings, please report to the Emergency Department. documented in this encounter Plan of Treatment Not on file documented as of this encounter Visit Diagnoses Not on filedocumented in this encounter Care Teams Hothouse Worker Relationship Specialty Start Date End Date Ken Greer MD PCP - General Family Medicine 12/30/23 05/15/24 documented as of this encounter
--- OUTSIDE RECORDS SUMMARY | 2024-12-05 12:37 | XMS_ITS | Encounter Summary ---
Author Organization [facility] Address [facility] [place] [address] Care Team Providers Care Cardiac Rehabilitation Specialist Name Role Phone Ken Greer MD Primary Care Provider [phone] Encounter Details Date Type Department Care Team (Late st Contact Info) Description 04/05/2024 Telephone [place] [phone] Skye Padron RN Social History Tobacco Use Types Packs/Day Years Used Date Smoking Tobacco: Every Day Cigarettes Last attempted to quit: 12/26/2018 Smokeless Tobacco: Never Comments:smoking a few a day Alcohol Use Standard Drinks/Week Comments No 0 (1 standard drink = 0.6 oz pur e alcohol) [facility] Utilities Answer Date Recorded In the past 12 months has th e electric, gas, oil, or water company threatened to shut off services in your home? No 03/14/2024 Hunger Vital Sign Answer Date Recorded Within the past 12 months, y ou worried that your food would run out before you got the money to buy more. Never true 03/14/20 24 Within the past 12 months, t he food you bought just didn't last and you didn't have money to get more. Never true 03/14/2024 PRAPARE - Transportation Answer Date Re corded In the past 12 months, has l ack of transportation kept you from medical appointments or from getting medications? No 02/23 In the past 12 months, has l ack of transportation kept you from meetings, work, or from getting things needed for daily living? No 03/14/2024 Housing Stability Vital Sign Answer Lon e [...] the mortgage or rent on time? No 03/14/2024 In the past 12 months, how m any times have you moved where you were living? 1 03/14/2024 At any time in the past 12 m [facility], were you homeless or living in a snf (including now)? No 03/14/2024 DH IPV Inpatient Questions Answer Date Recorded Does Anyone Try to Keep You From Having Contact with Others or Doing Things Outside Your Home? no 02/19/2024 Feels Threatened by Someone no 01/24 Feels Unsafe at Home or Work/School no 02/19/2024 Physical Signs of Abuse Present no 02/19/2024 Sex and Gender Information Value Date Recorded Sex Assigned at Not on file Gender Identity Not on file Sexual Orientation Not on file documented as of this encounter Miscellaneous Notes * Telephone Encounter - Skye Padron RN - 04/05/2024 9:00 AM EDT Outgoing call and message left for both Gerson and his Melissa. I advised them that they need to reach out to the care provider (PCP or saloonkeeper ) following his A-fib and discuss with them if he is supposed to be taking the Eliquis that was ordered. I did advise that if he is to take it, he needs to hold it for 3 days prior to his IR procedure. Clinic phone number left if they have any questions. VIDYA Baconreading intervention teacher [facility] documented in this encounter Plan of Treatment Not on file documented as of this encounter Visit Diagnoses Not on filedocumented in this encounter Care Teams Cardiac Rehabilitation Specialist Relationship Specialty Start Date End Date Ken Greer MD PCP - General Family Medicine 12/30/23 05/15/24 documented as of this encounter
--- OUTSIDE RECORDS SUMMARY | 2024-12-05 12:37 | XMS_ITS | Encounter Summary ---
Author Organization [facility] Address [facility] [place] [address] Care Team Providers Care Pilot Submersible Name Role Phone Ken Greer MD Primary Care Provider [phone] Encounter Details Date Type Department Care Team (Late st Contact Info) Description 03/23/2024 Telephone [facility] [place] [phone] Stephania Bailey Social History Tobacco Use Types Packs/Day Years Used Date Smoking Tobacco: Light Smoker Cigarettes Last attempted t o quit: 12/26/2018 Smokeless Tobacco: Never Comments:smoking a few a day Alcohol Use Standard Drinks/Week Comments No 0 (1 standard drink = 0.6 oz pur e alcohol) [facility] Utilities Answer Date Recorded In the past 12 months has th e electric, gas, oil, or water [employer] threatened to shut off services in your [...] living in a retirement (including now)? No 03/14/2024 DH IPV Inpatient [...] encounter Miscellaneous Notes * Telephone Encounter - Stephania Bailey - 03/23/2024 1:38 PM EDT 03/27 - Received call back from [facility], we have scheduled Gerson for RLE Angio on 04/11/[address] Renae. Letter sent. Message to RN's to follow up with patient/ re: Eliquis. [place] for call back to schedule RLE Angio documented in this encounter Plan of Treatment Not on file documented as of this encounter Visit Diagnoses Not on filedocumented in this encounter Care Teams Pilot Submersible Relationship Specialty Start Date End Date Ken Greer MD PCP - General Family Medicine 12/30/23 05/15/24 documented as of this encounter
--- OUTSIDE RECORDS SUMMARY | 2024-12-05 12:37 | XMS_ITS | Encounter Summary ---
[place] [address] Care Team Providers Care Technology Recruiter Name Role Phone Ken Greer MD Primary Care Provider [phone] Reason for Referral * Diagnostic Test (Routine) - Closed Specialty Diagnoses / Procedures Referred By Nader pena Referred To Contact Radiology Diagnoses S/P BKA (below knee amputation) unilateral, left Procedures VS Arteriogram Lower Extremity Vascular Surgery Kristi Renae MD [facility] [place] [address] [place] [address] Referral ID Status Reason Start Date Expiration Date V isits Requested Visits Authorized [id number] Closed Specialty Service Requested 03/10/2024 09/09/2025 1 1 Reason for Visit * Auth/Cert (Routine) Specialty Diagnoses / Procedures Referred By Nader pena Referred To Contact Diagnoses Critical ischemia of lower extremity hypertensive urgency Kristi Renae MD [facility] [place] [address] [facility] Referral ID Status Reason Start Date Expiration Date Visits Re quested Visits Authorized [id number] 1 1 Encounter Details Date Type Department Care Team (Latest Contact Info) Description 04/11/2024 8:30 AM EDT - 04/11/2024 1:43 PM EDT Hospital [place] [address] Kristi Renae MD [facility] VASCULAR [place] [address] CKD (chronic kidney disease) stage 5, GFR less than 15 ml/min; Anemia of chronic renal failure, stage 4 (severe); S/P BKA (below knee amputation) unilateral, left Discharge Disposition: Home Social History Tobacco Use Types Packs/Day Years Used Date Smoking Tobacco: Every Day Cigarettes Last attempted to quit: 12/26/2018 Smokeless Tobacco: Never Comments:smoking a few a day Alcohol Use Standard Drinks/Week Comments No 0 (1 standard drink = 0.6 oz pur e alcohol) [facility] Utilities Answer Date Recorded In the [...] living in a correction (including now)? No 03/14/2024 DH IPV Inpatient [...] Sign Reading Time Taken Comments Blood Pressure 144/62 04/11/2024 1:25 PM EDT Pulse 74 04/11/2024 1:30 PM EDT Temperature 36.8 ??C (98.2 ??F) 04/11/2024 8:41 AM ED T Respiratory Rate 14 04/11/2024 1:30 PM EDT Oxygen Saturation 91% 04/11/2024 1:30 PM EDT Inhaled Oxygen Concentration - - Weight 89.4 kg (197 lb) 04/11/2024 8:41 AM EDT Height - - Body Mass Index 28.27 03/13/2024 2:14 AM EDT documented in this encounter Discharge Instructions * Discharge Instructions* Letha Díaz RN - 04/11/2024 9:46 AM EDT [facility] Interventional Radiology Post Angiography Instructions Procedure: Right Lower Extremity Angiogram Puncture Site: Left groin 04/11/2024 Physician: Dr. Renae 1. At home we advise you to rest quietly in bed or on the couch with your hip straight until the next morning. Until the next morning you may get up only to go to the bathroom. 2. Resume your previous diet. Drink 6-8 ounces of fluid per hour for the next 8 hours. Avoid alcoholic or caffeinated beverages for 24 hours. 3. Avoid strenuous activity for the next 48 hours, particularly in the next 24 hours. Stair climbing should be kept to a minimum. Do not lift objects heavier than 10-15 pounds for the next 48 hours Avoid straining for bowel movements as you can pop open the clot that has formed on the artery. 4. If you develop bulging under the skin or bleeding at the puncture site, put direct pressure on the puncture site for 15 minutes and call your doctor. If the bleeding persists, reapply pressure, and go to your local Emergency Department. 5. If you notice a sudden change in the feeling (numbness, tingling and/or pain) of your leg on theside of the puncture call your doctor. 6. You may develop a bruise at the puncture site. This should go away within a week to 10 days. If a bulge develops after the first three days, call your doctor or the Radiology/Vascular Department here. Report signs of infection (redness, swelling, discharge, soreness, or fever) to your doctor. 7. Leave the bandage on for 24-48 hours. You may shower the following day after the procedure. You should NOT swim or tub bathe for [address] for 24 hours after the procedure. Do not sign any important documents or smoke unattended for 24 hours. You may return to work with the above restrictions on . 9. If you have any questions or concerns, please call Interventional Radiology Department at until 6pm. After 6pm, or on weekends or hoildays, call and ask for the residential case manager agricultural consultant. OR Vascular Department at until 4:45pm. After 4:45pm call [phone] and ask for the Vascular resident agricultural consultant. 10. If you are a diabetic and take Metformin or Janumet, Do not take it for 2 days after the procedure. You have received medication during your procedure to help lesson anxiety and keep you comfortable and which affects judgement and reaction time. We recommend that you do not drive, operate equipment, sign any important documents, or smoke unattended for 24 hours following your procedure. Because of the sedation please be careful on stairs, as you may be unsteady on your feet. You may resume your regular diet as tolerated. IV site -- slight redness, or tenderness is normal, you can use a warm compress. If tenderness and redness increases or foul drainage occurs, please contact your M. Jerry Revised 08/10/19 documented in this encounter Medications at Time of Discharge Medication Sig Dispensed Refills Start Date End Date insulin detemir U-100 (Levemir U-100 Insulin) 100 unit/mL Solution Inject subcutaneously. 12/19/2022 acetaminophen (Tylenol) 325 mg tablet Take 3 tablets by mouth every 6 hours. 30 tablet 1 03/14/2024 amLODIPine (Norvasc) 10 mg tabletIndications:CK D (chronic kidney disease) stage 4, GFR 15-29 ml/min Take 1 tablet by mouth daily. 90 tablet 3 03/14/2024 aspirin 81 mg chewable tablet Take 81 mg by mouth daily. 30 tablet 3 03/14/2024 atorvastatin (Lipitor) 40 mg tablet Take 1 tablet by mouth every evening. 90 tablet 3 03/14/2024 carvediloL (Coreg) 12.5 mg tabletIndications:ES RD (end stage renal disease) Take 1 tablet [...] tablet 3 03/14/2024 pregabalin (Lyrica) 100 mg capsuleIndications:C KD (chronic kidney disease) stage 3, GFR 30-59 ml/min,Other specified diabetes mellitus with unspecified complications,Essent ial hypertension with goal blood pressure less than 130/80,Hyperkalemia Take 1 capsule by mouth 2 times daily. 60 capsule 03/14/2024 sevelamer (Renagel) 800 mg tabletIndications:ES RD (end stage renal disease) 2 tablets, 3 times a day with each meal 180 tablet 5 03/14/2024 insulin glargine-yfgn (Semglee) 100 unit/mL Solution Inject 15 Units subcutaneously daily. 1 mL 03/14/2024 04/29/2024 documented as of this encounter Progress Notes * Debbie Harris RN - 04/11/2024 1:43 PM EDT Follow up call completed for on IR RLE angiogram with Dr. Renae on 04/11/24. Patient states that they have no concerns or questions at this time and was encouraged to call IR Department should any question or concerns arise. * Letha Díaz RN - 04/06/2024 3:07 PM EDT ANGIO NURSING DATABASE Name: Gerson Bruner Date of : 1965 AGE: 58 y.o. Address: [address] [place] [id number] (home) Mobile: Telephone Information: Referring Provider: Kristi Renae REASON FOR VISIT: Order Questions Answers Where will study be performed? [facility] Radiology [120] To be scheduled Ordering department to coordinate scheduling Laterality Right Access Site? left femoral Reason for exam and clinical history: CLTI Exam/Procedure requested: RLE angio possible intervention Is the patient on anticoagulant / antiplatelet therapy ? Aspirin,Low Molecular Weight Heparin Per Vasc Case Sheet: RLE Angio Mod Sed Cont asa Day of creat and K No data recorded Allergies Allergen Reactions Clindamycin Swelling. Gabapentin swelling [...] foot S90.424A Acute hypoxic respiratory failure J96.01 Date/Procedure Meds Given/Comments 04/11/2024 RLE Angiogram w/angioplasty Versed 2 mg IV; Fentanyl 200 mcg IV; Hydralazine 20 mg IV; Heparin 10,000 units IV; Labetalol 20 mg IV; Protamine 40 mg IV. Persistent HTN SBP 170's-180's Nicardipine gtt started. 1004 to procedure room IR 3 via stretcher. Onto table supine. All monitors, O2, safety strap in place. Meds per protocol. Arterial Puncture Post Procedure Time of Arterial Puncture: 10:45 Site: Left Femoral artery Closure device used: Mynx Time sheath removed: 13:05 Time of hemostasis: 1321 Hematoma present?: No Anticipated up time: 1521 Laboratory Results: Lab Results Component Value Date INR 1.0 03/13/2024 Lab Results Component Value Date CREATININE 5.92 (H) 03/14/2024 Lab Results Component Value Date K 4.8 03/14/2024 Lab Results Component Value Date PLATELET 409 (H) 03/14/2024 documented in this encounter H&P Notes * Russell Cohen MD - 04/11/2024 9:46 AM EDT Vascular Surgery Angiography History and Physical HPI: Gerson Bruner is a 58 y.o. male with longstanding insulin-dependent diabetes and ESRD who presented emergently to the hospital with wet gangrene of his left foot. 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 He subsequently underwent a formal left BKA. His BKA has been healing well. He continues to have a large eschar on his right heel, he reports that heis offloading it continuously, washing it daily and painting with Betadine. He denies any drainage,fevers or chills. Last HD session yesterday, full run without issue. RoS: 10 point review of systems negative except as noted above. Past Medical / Surgical History: Patient Active Problem List Diagnosis Acute hypoxic respiratory failure Surgical wound present [...] Herniation of lumbar intervertebral disc with radiculopathy Overview Note: L4-5 left Type II or unspecified type diabetes mellitus with neurological manifestations, uncontrolled(250.62) Leg cramps Cigarette smoker Unspecified hearing loss Social History Socioeconomic History Marital status: Spouse name: Not on file Number of children: Not on file Years of education: Not on file Highest education level: Not on file Occupational History Not on file Tobacco Use Smoking status: Every Day Current packs/day: 0.00 Types: Cigarettes Last attempt to quit: 12/26/2018 Years since quittin.2 Smokeless tobacco: Never Tobacco comments: smoking a [...] file Intimate Partner Violence: Not At Risk (02/19/2024) IPV Inpatient Questions Prevent Contact with Others: no Feels Threatened by Someone: no Feels Unsafe at Home: no Physical Signs of Abuse Present: no Housing Stability: Low Risk (03/14/2024) Housing Stability Vital Sign Unable to Pay for Housing in the Last Year: No Number of Times Moved in the Last Year: 1 Homeless in the Last Year: No Family History Problem Relation Age of Onset Diabetes Mother Cancer Father Diabetes Paternal Grandmother Heart Disease Paternal Grandfather Medications: Current Outpatient Medications Medication Sig Dispense Refill acetaminophen (Tylenol) 325 mg tablet Take 3 [...] 180 tablet 5 No current facility-administered medications for this encounter. Allergies: Clindamycin, Gabapentin, and Zoloft [sertraline] Physical Exam: Gen: NAD, alert and oriented x3 Cardiac: Regular Pulm: Normal work of breathing on room air GI: Soft, NT ND Vasc: 2/2 right femoral pulse. 2/2 left femoral pulse. Right heel dry gangrene. Left BKA. Right DP and PT signals . Sensation and motor function intact. Imagin02/18/2024 MELLY Findings: Right Pressure (mm Hg) Waveform TBI Brachial Artery 190 Dorsalis Pedis (Ankle) Artery >240 Manati-Biphasic Posterior Tibial (Ankle) Artery >240 Monophasic Great [...] taken in left arm due to fistula. Comment: The ankle pressures are falsely elevated compared to the Doppler waveforms, most likely due to calcified tibial arteries. Thus, disease severity is based on Doppler waveforms and toe pressures. Previous ABIs with change from previous value: Date RIGHT DP RIGHT PT RT GR TOE RT Sec TOE 1.05 1.06 0.66 ---- Current ---- ---- 0.58(-.08) ---- Date LEFT DP LEFT PT LT GR TOE LT Sec TOE 1.13 1.06 0.69 ---- Current ---- 0.50(-.56) 0.45(-.24) ---- Assessment and Plan: Gerson Bruner is a 58 y.o. male with longstanding insulin- dependent diabetes and ESRD with prior left BKA for wet gangrene who has a non- healing right heel ulcer. Presents for RLE angiogram Procedure: RLE angiogram Sedation: moderation sedation with fentanyl & Versed Code: Full ASA: III Mal: 2 Cr: Lab Results Component Value Date CREATININE 5.92 (H) 03/14/2024 Russell Cohen MD Vascular Surgery Resident Team pager [phone] Personal pager [phone] 04/11/2024 documented in this encounter Plan of Treatment Not on file documented as of this encounter Procedures Procedure Name Priority Date/Time Associated Diagnosis Comments POCT GLUCOSE Routine 04/11/2024 4:28 PM EDT VS ARTERIOGRAM LOWER EXTREMITY VASCULAR SURGERY Routine 04/11/2024 1:36 PM EDT S/P BKA (below knee amputation) unilateral, left POCT GLUCOSE Routine 04/11/2024 9:30 AM EDT POCT GLUCOSE Routine 04/11/2024 9:08 AM EDT documented in this encounter Results * (ABNORMAL) Creatinine (05/16/2024 1:59 PM EDT) Creatinine 5.72(H) 0.80 - 1.50 mg/dL [facility] Est Glomerular Filtration Rate 11(L) >=60 mL/min/1. 73 m?? [facility] Comment: This patient's [...] In Lab Kristi Renae MD CHEMISTRY ORDERABLES [facility] [place] [address] * POCT Glucose (04/11/2024 4:28 PM EDT) Glucose, POC 99 65 - 199 mg/dL [facility] Comment: Supplemental ranges: <140 mg/dL before meals <180 mg/dL all other times of the day Blood 04/11/2024 4:28 PM EDT 04/11/2024 4:28 PM EDT Kristi Renae MD POINT OF CARE TEST O RDERABLES [facility] [place] [address] * VS Arteriogram Lower Extremity Vascular Surgery (04/11/2024 1:36 PM EDT) Anatomical Region Laterality Modality X-Ray Angiograph y Narrative 04/17/2024 10:36 AM EDT Vascular Surgery Procedure Note Pre-procedure Dx: RLE CLI Post-procedure Dx: Same Procedure: 1. ??Ultrasound and fluoroscopic guided left femoral arterial access 2. ??Fourth order selective catheterization of right posterior tibial artery 3. ??Right lower extremity angiogram 4. Right SFA angioplasty (Rosenberg 5x60) 5. Right SFA DCBA ([place] 5x100) 6. Right posterior tibial artery angioplasty (Jhon 2x100 and 2x20) 7. Mynx closure Surgeons: Dr Renae - Attending Dr Cohen - Resident Anesthesia: Conscious sedation, local 10 cc 1% lidocaine Medications: Fentanyl: 200 mcg ?? Versed: 2 mg Heparin: 50416 units ?? Antibiotics: 2g Ancef Protamine: 40 mg Hydralazine: 20mg Labetalol: 20mg Nicard gtt started Fluoro Time: 17.2 min Contrast: 115 cc Indications for the Procedure: Findings: - Sheath access in left groin, 5F - Aortogram demonstrated: Patent aortoiliac system - Angiogram demonstrated: Patent common femoral and profunda that is moderately collateralized, proximal SFA widely patent, there is a high-grade stenosis in the mid SFA, there were 2 additional moderate to high risk greater than 50% stenosed areas along the SFA. ??Primary runoff to the foot is via the AT. ??The peroneal occludes in the mid calf, the PT appears to occlude for a short segment in the middle of the calf and reconstitutes distally via collaterals. ??Minimal perfusion into heel (location of current wound) - Intervention: Right SFA angioplasty (Rosenberg 5x60), Right SFA DCBA ([place] 5x100), Right PT angioplasty (Jhon 2x100 and 2x20) - Completion angiogram demonstrated: Excellent SFA patency with robust inline flow. ??Improved runoff to the foot via the AT primarily, and the PT has improved outflow to the foot as well - Closure device: 5F Mynx -No hematoma, groin soft. ??Right DP and PT signals, PT much improved - Prior to Mynx deployment sheath removal patient had recalcitrant hypertension to as needed medications. ??Ultimately nicardipine drip was started he was admitted for observation to the ISCU Technical Procedure: ??The patient was correctly identified in the pre-procedure holding area. ??After a discussion of the risks and benefits, operative consent was obtained. ??The patient was brought to the angio suite and placed supine upon the angio table. The patient was prepped and draped in the usual sterile fashion. A time-out was performed by the attending surgeon. Retrograde percutaneous access was obtained in the left common femoral artery via micropuncture technique under flouroscopic guidance after infiltration with local anesthetic. This was then up-sized to a 10 cm 5F sheath over a J-wire. The wire was advanced into the infra-renal aorta. A 5F omni-flush catheter was advanced into the infrarenal aorta over the wire. Diagnostic aortography was performed with the above findings. ? The wire and catheter were then used to selectively catheterize the right common iliac artery. The wire and catheter were advanced down to the common femoral artery. The right lower extremity was then imaged in station. ??Findings are as described above. ? Sheath exchange was performed over a stiff wire which was used to advance a 5 x 65 Ansell sheath to the right femoral. ??Systemic heparin was given. ??Then using a soft Glidewire and quick cross catheter the SFA lesions were traversed. ??Initial POBA was performed in the highly stenotic area of the SFA. ??The balloon was then retracted to the more proximal lesion and repeat angioplasty was performed. ??The wire was then exchanged for a [employer]way 018 wire and drug-coated balloon angioplasty was performed using a [place] 5 x 100 balloon for 3 minutes. ??Repeat angiography was performed and excellent SFA patency was observed. A wire and catheter exchange were performed to use V18 wire and catheter. ??The wire and catheter were then used to select the right PT artery. ??The long segment occlusion of PT was recanalized to the level of the ankle. ??We then performed long segment balloon angioplasty of the right PT artery with a jhon 2x100. ??Repeat angiography demonstrated an area of more distal stenosis that was then treated by a 2 x 20 jhon balloon. ??Completion angiography demonstrated excellent PT patency with preserved runoff to the foot via the AT, and the peroneal to the mid calf. ?The balloon and wire were then removed. ??A wire exchange was performed for the Small wire which was used to retract the up and over sheath to the level of the left common iliac artery. ??Prior to closure device deployment the patient was sustaining recalcitrant hypertension. ?? This and a nicardipine gtt was started. Once had appropriate BP control, closure was done with a Mynx under flouroscopic guidance. Direct pressure was held for 20 minutes. Excellent hemostasis was achieved. The puncture site was dressed with a dry gauze and tegaderm. ? Dr. Renae the attending surgeon was scrubbed and present for the entire procedure. ??Due to the painful nature of the procedure, split doses of fentanyl and Versed were administered by the IR nurse during continuous monitoring of pulse, blood pressure and oxygen saturation. Closure method: Mynx Complications: None apparent Disposition: To recovery, flat for 2 hours Admit obs post op for BP monitoring, wean nicard gtt Restart home BP meds Give plavix 75mg today Restart DOAC in 48 hrs (afib) Likely can d/c today after BP goals met and post-op monitoring Will need follow up in ~4 weeks with ABIs/ TcPO2s Attending Attestation I was present and I participated during the entire procedure (does not need to include opening and closing). I was present during the intraservice time as documented by the sedation RN. Kristi Renae MD Section of Vascular Surgery ? Kristi Renae MD IMG IR ORDERABLES * POCT Glucose (04/11/2024 9:30 AM EDT) Glucose, POC 89 65 - 199 mg/dL [facility] Comment: Supplemental ranges: <140 mg/dL before meals <180 mg/dL all other times of the day Blood 04/11/2024 9:30 AM EDT 04/11/2024 9:30 AM EDT Kristi Renae MD POINT OF CARE TEST O RDERABLES Performing Organization Address City/[facility]/ZIP Co de Phone Number [facility] [place] [address] * (ABNORMAL) POCT Glucose (04/11/2024 9:08 AM EDT) Glucose, POC 61(L) 65 - 199 mg/dL [facility] Comment: Supplemental ranges: <140 mg/dL before meals <180 mg/dL all other times of the day Blood 04/11/2024 9:08 AM EDT 04/11/2024 9:08 AM EDT Kristi Renae MD POINT OF CARE TEST O CARMELITA Performing Organization Address [facility] Co de Phone Number [facility] [place] [address] documented in this encounter Visit Diagnoses Diagnosis CKD (chronic kidney disease) stage 5, GFR less than 15 ml/min Chronic kidney disease, Stage V Anemia of chronic renal failure, stage 4 (severe) S/P BKA (below knee amputation) unilateral, left documented in this encounter Administered Medications Inactive Administered Medications - up to 3 most recent administrations Medication Order MAR Action Action Date Dose Rate Site ceFAZolin (Ancef) 2 g vial attach to sodium chloride 0.9% 100 mL Mini-Bag Plus 2 g, Intravenous, ONCE, 1 dose, On Wed04/11/24 at 1015, Administer over 30 Minutes, Redose every 4 hours if CrCl is greater than 20 mL/min. Redose every 8 hours if CrCl is less than 20 mL/min., Angio/IR (Day of Procedure), Indication for (Active or Suspected): Prophylaxis New Bag 04/11/2024 10:15 AM EDT 2 g 200 mL/hr fentaNYL (pf) (50 mcg/mL) multi-dose injection 25-50 mcg 25-50 mcg, Intravenous, EVERY 3 MIN PRN, Starting on Wed04/11/24 at 0952, Until Wed04/11/24 at 1332, Pain, per unit protocol, For use in [...] mcg/dose, 250 mcg/hour, Angio/IR (Intra-Procedure), Routine Given 04/11/2024 1:10 PM EDT 25 mcg Given 04/11/2024 12:04 PM EDT 25 mcg Given 04/11/2024 11:46 AM EDT 25 mcg heparin (porcine) (1,000 units/mL) injection 1,000-10,000 Units 1,000-10,000 Units, Intravenous, ONCE, 1 dose, On Wed04/11/24 at 1015, For use in Interventional Radiology (IR) only for procedure with direct provider supervision and verbal order. , Angio/IR (Intra-Procedure), Routine Given 04/11/2024 10:15 AM ED T 10,000 Units hydrALAZINE (Apresoline) (20 mg/mL) injection 10-20 mg 10-20 mg, Intravenous, ONCE PRN, 1 dose, Starting on Wed04/11/24 at 0952, Until Wed04/11/24 at 1040, High Blood Pressure, For use in Interventional Radiology (IR) only for procedure with direct provider supervision and verbal order. May repeat within 20 minutes., Angio/IR (Intra-Procedure) Given 04/11/2024 10:40 AM EDT 20 mg iodixanoL (Visipaque) (320 mg/mL) injection solution 150 mL 150 mL, Intra-arterial, ONCE PRN, 1 dose, Starting on Wed04/11/24 at 1337, Until Wed04/11/24 at 1337, Per Protocol, Routine Given 04/11/2024 1:37 PM EDT 115 mLs labetaloL (Normodyne) (5 mg/mL) injection solution 10-20 mg 10-20 mg, Intravenous, EVERY 10 MIN PRN, Starting on Wed04/11/24 at 0952, Until Tu04/11/24 at 1332, High Blood Pressure, Elevated Heart Rate, For use in Interventional Radiology (IR) only for procedure with direct provider supervision and verbal order. May give additional doses up to 40-80 mg per dose every 10 minutes., Angio/IR (Intra-Procedure), Routine Given 04/11/2024 11:43 AM EDT 10 mg Given 04/11/2024 11:06 AM EDT 10 mg midazolam (pf) (Versed) (1 mg/mL) multi-dose injection 0.5-1 mg 0.5-1 mg, Intravenous, EVERY 3 MIN PRN, Starting on Wed04/11/24 at 0952, Until Wed04/11/24 at 1332, Sedation, For use in Interventional Radiology (IR) [...] mg/dose, 5 mg/hour., Angio/IR (Intra-Procedure), Routine Given 04/11/2024 10:51 AM EDT 0.5 mg Given 04/11/2024 10:25 AM EDT 0.5 mg Given 04/11/2024 10:20 AM EDT 1 mg niCARdipine (Cardene) (0.2 mg/mL) in sodium chloride 200 mL infusion 0-15 mg/hr (0-75 mL/hr), Intravenous, CONTINUOUS, Starting on Wed04/11/24 at 1315, Until Wed04/11/24 at 1510, Titrate to systolic blood pressure (SBP) greater than 160 mmHg and less than 90 mmHg. Start at 5 mg/hr. Increase/decrease by 2.5 mg/hr every 5 minutes until goal reached. Do not exceed 15 mg/hr. Rotate IV site every 12 hours., STAT New Bag 04/11/2024 1:15 PM EDT 5 mg/hr 25 mL/hr niCARdipine (Cardene) 40 mg/200 mL (0.2 mg/mL) infusion 1 dose, Starting on Wed04/11/24 at 1248, Until Wed04/11/24 at 1315, Lilia Mckeon.: janiceinet override protamine (10 mg/mL) injection 10-50 mg 10-50 mg, Intravenous, ONCE, 1 dose, On Wed04/11/24 at 1015, Angio/IR (Intra-Procedure), Routine Given 04/11/2024 12:10 PM EDT 40 mg documented in this encounter Care Teams Technology Recruiter Relationship Specialty Start Date End Date Ken Greer MD PCP - General Family Medicine 12/30/23 05/15/24 documented as of this encounter
--- OUTSIDE RECORDS SUMMARY | 2024-12-05 12:37 | XMS_ITS | Encounter Summary ---
Author Organization [facility] Address [facility] [place] [address] Care Team Providers Care Grain Elevator Operator Name Role Phone Ken Greer MD Primary Care Provider [phone] Encounter Details Date Type Department Care Team (Late st Contact Info) Description 03/12/2024 Ancillary Procedure Radiology Library at [facility] [place] [address] Social History Tobacco Use Types Packs/Day Years Used Date Smoking Tobacco: Light Smoker Cigarettes Last attempted t o quit: 12/26/2018 Smokeless Tobacco: Never Comments:smoking a few a day Alcohol Use Standard Drinks/Week Comments No 0 (1 standard drink = 0.6 oz pur e alcohol) PRAPARE - Transportation Answer Date Re corded In the past 12 months, has l ack of transportation kept you from medical appointments or from getting medications? No 01/24 In the past 12 months, has l ack of transportation kept you from meetings, work, or from getting things needed for daily living? No 02/20/2024 Housing Stability Vital Sign Answer [...] place to sleep or slept in a penitentiary (including now)? No 02/20/2024 [facility] Inpatient Questions Answer Date Recorded Does Anyone [...] Procedure Name Priority Date/Time Associated Diagnosis Comments FILM LIBRARY STORAGE ONLY DX CHEST Routine 03/12/2024 12:00 AM EDT documented in this encounter Results * Film Library- Storage Only DX Chest (03/12/2024 12:00 AM EDT) Narrative Dicom, Auditing User - 03/13/2024 5:01 AM EDT This exam is auto-finalizing. It's purpose is for storage only. Cristian Malloy MD IMG FILM LIBRARY ORD ERABLES documented in this encounter Visit Diagnoses Not on filedocumented in this encounter Care Teams Grain Elevator Operator Relationship Specialty Start Date End Date Ken Greer MD PCP - General Family Medicine 12/30/23 05/15/24 documented as of this encounter
--- OUTSIDE RECORDS SUMMARY | 2024-12-05 12:37 | XMS_ITS | Encounter Summary ---
Author Organization [facility] Address [place] [address] Care Team Providers Care Watch Parts Inspector Name Role Phone Ken Greer MD Primary Care Provider [phone] Encounter Details Date Type Department Care Team (Late st Contact Info) Description 02/29/2024 Telephone [place] [id number] Goldie Arteaga RN Social History Tobacco Use Types Packs/Day [...] in a detention (including now)? No 02/20/2024 [facility] Inpatient Questions Answer Date Recorded Does Anyone [...] encounter Miscellaneous Notes * Telephone Encounter - Goldie Arteaga RN - 02/29/2024 9:15 AM EDT Senior Consulting Manager took a phone call from the rehab [facility] [place] on wanting clarification for wound care. Senior Consulting Manager spoke with Dr. Courtney for clarification of wound care. Joe Arteaga RN/Dr. Courtney Can shower and let soap and water run over the wound of the heel and the stump. Rinse off soap. Patdry. 2. [place] the heel with betadine and wrap with kerlix. 3. Stump pat dry after washing and then wrap with kerlix and then wrap with an ja wrap. documented in this encounter Plan of Treatment Not on file documented as of this encounter Visit Diagnoses Not on filedocumented in this encounter Care Teams Watch Parts Inspector Relationship Specialty Start Date End Date Ken Greer MD PCP - General Family Medicine 12/30/23 05/15/24 documented as of this encounter
--- OUTSIDE RECORDS SUMMARY | 2024-12-05 12:37 | XMS_ITS | Encounter Summary ---
Author Organization [facility] Address [facility] [place] [address] Care Team Providers Care Bed Laborer Name Role Phone Ken Greer MD Primary Care Provider [phone] Encounter Details Date Type Department Care Team (Late st Contact Info) Description 03/28/2024 [place] [phone] Skye Padron RN Social History Tobacco Use [...] th e electric, gas, oil, or water [employer] threatened to shut off services in your [...] in a senior living (including now)? No 03/14/2024 [facility] Inpatient [...] Telephone Encounter - Skye Padron RN - 03/28/2024 12:00 PM EDT Outgoing call to Gerson advising that he reach out to the provider that initially ordered his Eliquis for A-Fib to determine if he still needs it or not. Gerson reported that it was a provider at [facility] who ordered the medication. Gerson verbalized understanding and agreed to reach out to the [facility] provider. [facility] documented in this encounter Plan of Treatment Not on file documented as of this encounter Visit Diagnoses Not on filedocumented in this encounter Care Teams Bed Laborer Relationship Specialty Start Date End Date Ken Greer MD PCP - General Family Medicine 12/30/23 05/15/24 documented as of this encounter
--- OUTSIDE RECORDS SUMMARY | 2024-12-05 12:37 | XMS_ITS | Encounter Summary ---
Author Organization [facility] Address [facility] [place] [address] Care Team Providers Care Special Services Agent Name Role Phone Ken Greer MD Primary Care Provider [phone] Encounter Details Date Type Department Care Team (Late st Contact Info) Description 04/04/2024 9:00 AM EDT [place] [address] Melissa Man APRN [facility] [address] Status post below knee amputation, left; Non-healing open wound of right heel, subsequent encounter Social History Tobacco Use Types Packs/Day [...] Recorded In the past 12 months has [employer], gas, oil, or water [employer] threatened to shut off services in [...] place to sleep or slept in a fdc (including now)? No 02/20/2024 Housing Stability Vital [...] living in a fdc (including now)? No 03/14/2024 [facility] Inpatient Questions Answer Date Recorded Does [...] this encounter Patient Instructions * Patient Instructions* Melissa Man, STAFF DEVELOPMENT EDUCATOR - 04/04/2024 9:00 AM EDT Wound care Instructions: Left BKA Change dressing every 2-3 days or sooner for 50% or greater strike through drainage. Remove old dressing. Cleanse wound with wound cleanser or normal saline and gauze. Cover wound bed with bordered gauze dressing or similar . Apply compression sleeve Right heel Change dressing every 2-3 days [...] and gauze. Cover wound bed with adhesive bandage. Keep covered to protect tissue Use silicone toe separator to relieve pressure to toe Additional Instructions: High Protein foods: try to eat 5-6 servings of these per day Beef, chicken, fish Beans, Lentils, peanut butter Beninese and regular yogurt Cheese, eggs Boost, Ensure shakes Protein powder in a smoothie of your choice Monitor for signs of infection which may include: Fever Sweats Chills Nausea, Vomiting or Diarrhea Unexplained increase in Blood Glucose levels At or around the wound site: Increased pain Swelling or edema Redness Warmth Purulent drainage (thick yellow/green drainage) Malodor [facility] with any above symptoms Wednesday- Wednesday 8:00AM-4:30PM ([phone]). If weekends / holidays / evenings, please [...] get one in any store that sells products.) Don???t use any tape or sticky products such as corn plasters on your feet. The can tear your skin. Do not file, remove or shave calluses or corns yourself, unless instructed otherwise. These should be taken care of by your physician or compressor mechanic. Avoid using any chemical or strong antiseptic solutions on your feet. Iodine, salicylic acid, corn/callus removers may burn the skin. Wound care supplies ordered. Samples provided documented in this encounter Progress Notes * Melissa Man APRN - 04/04/2024 9:00 AM EDT Images from the original note were not included. [facility] Initial Consultation Note Reason for Visit: Gerson Bruner is a 58 y.o. male referred by Kristi Renae MD for evaluation of Non-healing open wound of heel . HPI: Patient admitted 02/17-/02/25/24 by vascular service for bilateral heel ulcers, left worse than right in setting of diabetes. In ED the patient estimated that these have been here for approximately1 to 2 months, and he follows with a compressor mechanic for these. He presented to [facility] initially after noting fevers and after his VNA identified worsening redness of the left foot. He states that at baseline he does not ambulate much. The patient has not had any vascular interventions in the past, although he has been evaluated by a vascular surgeon at [facility] who determined that he does not have any indication for revascularization based on his toe pressures. Patient admitted to Vascular Surgery. Orthopedics was consulted for possible amputation but decision made to have this occur with Vascular Surgery and Orthopedics signed off. Patient taken to OR with findings of Left foot with gangrenous calcaneal and left lateral foot ulcer. 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 Diabetes management team was consulted for recommendations for FSBS/Insulin. BIT was consulted as patient struggling with amputation closure which will require a below knee completion. Patient continued to have HD 3x weekly [facility]. Sterile operative dressing removed on 02/24/24, incision without erythema or drainage, IV antibiotics discontinued. D/C [facility]. 03/10/24: Angiogram of the RLE scheduled for 04/11/24. MRI ordered and pending scheduling. The medical history and recent labs were reviewed prior to the patient's appointment. 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 Neuro: denies ARMSTRONG, dizziness CV: Denies CP, SOB GI: denies N/V, diarrhea : Denies voiding issues Diet: good, eating 3 meals per day, getting protein Wound care: by nursing, at home to help Leg fatigue, calf cramping, skin itching: - Neuropathy: + Pain: 2/10 FBS today 236 PE: Vitals: There were no vitals taken for this visit. General: pleasant, in NAD. Arrive with remi Mobility: slide to chair Edema: ++ to LBKA and trace right LE DP, PT pulses + dopper bilaterally Varicosities: - Hemosiderin staining: - Stasis dermatitis: - Callus:+ right heel Nails: trimmed 5.07 filament Ione Albert monofilament exam: 1/10 +LOPS Odor: none Skin warm to touch Right calf: 38.0 cm Right ankle: 26.0 cm Left Calf: 41.0 cm Left Ankle: N/A left BKA Wound 04/04/24 Measurement (Initial) 03/09/24 Wound bed/ Thickness Periwound Drainage Odor Debridement Primary Dressing Secondary Dressing Left BKA 20cm incision well approximated. Superficial open areas where sutures/remi removed. 20cm well approximated incision Full Incision with scattered crusts Mild erythema without warmth Light serous No Mechanical (irrigation/cleansing and gauze or wet-to-dry dressings) Mepilex foam non-border (foam), Aquaphor tape Right heel 7.3cm x 6.7cm x >0.1m (true depth unknown) 6.6cm x 6.2cm x undetermined Full 85% black/brown eschar 10% white tissue 5% pink [place] with callus, dry skin Moderate serous No Surgical (sharps instrument or laser) Medihoney Alginate (Alginate) ([place] HD SuperLite)Silicone Bordered Dressing Right second toe: Not assessed. notes healed. PHOTO taken today: Left BKA s/p removal of sutures/remi Right heel Wound treatment: Cleansed wound with NS Analgesia: none Conservative sharp debridement was performed of the right heel. Devitalized tissue was removed using #15 blade, down to and including skin tissue and subcutaneous tissue to reveal healthier tissue. Total area of debridement was approx 10cm cm sq. Non-selective mechanical debridement of devitalized tissue of the left BKA using normal saline and gauze. Bleeding easily resolved with normal saline Patient tolerated treatment well. Dressing: as above Dermafit: Double layer medium Medigrip applied to LBKA by vascular Assessment/ Plan: Gerson Bruner is a 58 y.o. male with surgical wound s/p Left BKA 02/21/24 by vascular service. ABIs as noted above showing mild LEAD, right and Moderate LEAD, left. CT on 02/18/24 showing intraosseous gas in the plantar surface of the calcaneus is concerning for contaminated bone and acute calcaneal osteomyelitis. Xray (02/18/24) shows no osseous destruction on right foot. No recent A1c on file. Patient reports BG was 236 this morning. He is on dialysis 3 times per week. He is residing at home and has OEVNA twice a week. His spouse has been changing his dressings daily. Plan is continue PT via home health as well as VNA for wound monitoring. He was started on Doxycycline forcellulitis on 03/01/24-03/12/24. He was assessed by Dr. Renae in Vascular last month. Patient reports plan is pursue MRI of right heel and angiogram of right leg on 04/11/24. Wound to right heel with mostly eschar. Periwound callus was pared. There is minimal erythema and dry skin. The right heel eschar was cross hatched today with a #15 blade. Will continue with Medihoney alginate to promote autolytic debridement and for antimicrobial effects, followed by Mepilex border dressing for protection andexudate management. It was advised to not change the dressing daily to give time for autolytic debridement to occur. Surgical incision to his Left BKA is well approximated with scattered dried crusts. He has both stitches and remi in place which are due to be removed today. These were removed wit hout difficulty. He has edema and significant dryness. Will apply Aquaphor to the area and cover with oval non bordered foam for protection and exudate management. Will cover with medium tissue support via Medigrips. He notes edema up to his thigh. He has been sitting in his chair with legs dependent most of the day. We discussed importance of offloading the heal to assist with wound healing and also to elevate his stump to prevent edema. He and his spouse verbalize agreement and will work on this. He is aware that the offloading shoe does not take the place of offloading the heel by elevation and floating of the heel. We reviewed wound healing, signs of infection, offloading of right heel, tight glucose control and need for nutrition/protein support. He will RTC in 2-3 weeks for continued assessment. Verbal and written wound care instructions were provided. The patient will call with any questions or concerns. Goal: Wound healing, prevention of infection Perceived barriers: Co-morbidities, ability to offload Plan: Wound care as above Angiogram right leg per Dr. Renae on 04/11/24 Offloading of heel Compression to the Left BKA STAFF DEVELOPMENT EDUCATOR Plan of Care: Patient to return to [...] Beef, chicken, fish Beans, Lentils, peanut butter Beninese and regular yogurt Cheese, eggs Boost, Ensure shakes Protein powder in a smoothie of your choice Monitor for signs of infection which may include: Fever Sweats Chills Nausea, Vomiting or Diarrhea Unexplained increase in Blood Glucose levels At or around the wound site: Increased pain Swelling or edema Redness Warmth Purulent drainage (thick yellow/green drainage) Malodor Contact [facility] with any above symptoms Wednesday- Wednesday 8:00AM-4:30PM ([phone]). If weekends / holidays / evenings, please [...] get one in any store that sells products.) Don???t use any tape or sticky products such as corn plasters on your feet. The can tear your skin. Do not file, remove or shave calluses or corns yourself, unless instructed otherwise. These should be taken care of by your physician or compressor mechanic. Avoid using any chemical or strong antiseptic solutions on your feet. Iodine, salicylic acid, corn/callus removers may burn the skin. Wound care supplies ordered. Samples provided Cc: No referring provider defined for this encounter. PCP: Ken Greer MD documented in this encounter Plan of Treatment Not on file documented as of this encounter Visit Diagnoses Diagnosis Status post below knee amputation, left Non-healing open wound of right heel, subsequent encounter documented in this encounter Care Teams Special Services Agent Relationship Specialty Start Date End Date Ken Greer MD PCP - General Family Medicine 12/30/23 05/15/24 documented as of this encounter
--- OUTSIDE RECORDS SUMMARY | 2024-12-05 12:37 | XMS_ITS | Encounter Summary ---
[facility] [place] [address] Care Team Providers Care Hide Selector Name Role Phone Ken Greer MD Primary Care Provider [phone] Reason for Referral * Home Health Care (Routine) - Closed Specialty Diagnoses / Procedures Referred By Nader gardiner Referred To Contact Diagnoses Status post below knee amputation, left Connie Ibarra, [facility] [place] [address] [facility] & [address] [address] Referral ID Status Reason Start Date Expiration Date V isits Requested Visits Authorized [id number] Closed Consult, Test & Treat 03/14/2024 09/10/2024 999 999 Reason for Visit * Auth/Cert (Routine) Specialty Diagnoses / Procedures Referred By Nader gardiner Referred To Contact Diagnoses Acute hypoxic respiratory failure Rhea Man MD [facility] Referral ID Status Reason Start Date Expiration Date Visits Re quested Visits Authorized [id number] 1 1 Encounter Details Date Type Department Care Team (Latest Contact Info) Description 03/13/2024 1:00 AM EDT - 03/14/2024 2:47 PM EDT Hospital Encounter Medical Special Care Unit Level 3 [place] [address] Cristian Malloy MD [facility] [place] [address] Rhea Long MD Wildman, Ashley T, [facility] [place] [address] Status post below knee amputation, left; Acute hypoxic respiratory failure; CKD (chronic kidney disease) stage 4, GFR 15-29 ml/min; ESRD (end stage renal disease); CKD (chronic kidney disease) stage 3, GFR 30-59 ml/min; Other specified diabetes mellitus with unspecified complications; Essential hypertension with goal blood pressure less than 130/80; Hyperkalemia Discharge Disposition: Home with VNA Social History Tobacco Use Types Packs/Day Years Used Date Smoking Tobacco: Light Smoker Cigarettes Last attempted t o quit: 12/26/2018 Smokeless Tobacco: Never Comments:smoking a few a day Alcohol Use Standard Drinks/Week Comments No 0 (1 standard drink = 0.6 oz pur e alcohol) [facility] Utilities Answer Date Recorded In the past 12 months has th e [employer], gas, oil, or water [employer] threatened to shut off services in your [...] living in a assisted (including now)? No 03/14/2024 DH IPV Inpatient [...] Sign Reading Time Taken Comments Blood Pressure 163/76 03/14/2024 11:37 AM EDT Pulse 64 03/14/2024 8:09 AM EDT Temperature 36.8 ??C (98.3 ??F) 03/14/2024 1 1:37 AM EDT Respiratory Rate 16 03/14/2024 11:3 7 AM EDT Oxygen Saturation 97% 03/14/2024 11: 37 AM EDT Inhaled Oxygen Concentration - - Weight 89.2 kg (196 lb 10.4 oz) 03/13/2024 2:14 AM EDT Height 177.8 cm (5' 10) 03/13/2024 2:14 AM EDT Body Mass Index 28.22 03/13/2024 2:14 AM EDT documented in this encounter Discharge Summaries * Teodora Barber DO - 03/14/2024 7:25 AM EDT Inpatient - Discharge Summary Patient Name: Gerson Bruner Patient Age: 58 y.o. Birthdate: 1965 Admit date: 03/13/2024 Discharge date and time: 03/14/24 Attending Physician: Connie T Fred, DO Follow-up recommendations to providers: PCP - please monitor blood pressure as patient was significantly hypertensive while inpatient - please adjust / discuss home insulin regimen; patient confused on dosing - please follow up final results of blood cx collected at [facility] Discharge Diagnoses (Hospital Problems) and Secondary Diagnoses (Chronic Problems): Active Hospital Problems Diagnosis Acute hypoxic respiratory failure Resolved Hospital Problems No resolved problems to display. 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 male w/ a history of ESRD on HD (M/W/F), small- vessel TIA (2018), type 2 diabetes mellitis, active tobacco use, and a recent admission to vascular surgery for left gangrenous calcaneal and lateral foot ulcers s/p a guillotine amputation who presents in transfer from [facility] ED for symptomatic COVID-19. HPI: Per records, the patient had a recent admission to vascular surgery service for worsening left footchronic wounds on 02/18/2024 and discharged on 02/25/2024 to an acute rehab after a left BKA. He was discharged from the rehab on Wednesday03/10/2024 to home. At home, his spouse noted that he was a little altered. At night, he seemed more confused and felt warm to touch, though she did not take his temperature. She brought him to the ED at [facility] the following day. In the ED, he was noted to be afebrile, HR 86, BP 204/66, RR 12 and he was saturating at 88% on room air. The patient was placed on oxygen which was titrated to 6L w/ appropriate response. Labs were pertinent for WBC 13.1, Hg 8.4, plt 436, VBG pH 7.38, pCO2 44, HCO3 26, lactate 1.8 to 1.3, Na 134, K 5.6, BUN 69, Cr 7, glucose 320 -> 520, Ca 8.7, LFTs normal except alk phos 180 and albumin 2.2,procalcitonin 0.8, TSH normal, COVID-19 positive, but the rest of the WORK STATION SUPPORT SPECIALIST was negative. CXR was obtained which showed extensive bilateral patchy infiltrates. CT chest w/o contrast was also obtained w/ evidence of acute fractures of the left 8th and 9th ribs, extensive bilateral ground glass opacities and small bileral pleural effusions R>L and anasarca. Over the course of a few hours, the patient was noted to have increased oxygen requirement, and HFNC was considered, but not initiated. [facility] but the patient did not meet MICU level criteria, so he was accepted to [facility] instead. Overall, ED interventions included a liter of LR, a dose of remdesivir, 6mg dose of dexamethasone as well as a dose of cefepime and vancomyin. The patient also received 10 units of short acting insulin, and 1000mg of IV offirmev prior to transfer. On arrival, he is hemodynamically stable on 6L, but I am able to wean him to 2L w/ sustaining O2 sats >93%. He is confused, and reports that he does not understand why he is here. He thinks that he is at his baseline respiratory status. He also says that his spouse made him go to the ED, and that he did not feel different then either. He denies any fever, chills, cough, lightheadedness, dizziness, but he is fatigued, and this is howhe usually feels in between HD sessions. He smokes cigarettes, about a 1/2 to a pack a day, done so for years. He is not interested in a nicotine patch. He denies any alcohol recreational drugs use. He is FULL CODE. Hospital Course: Gerson Bruner was admitted to the [facility] service on 03/13/2024 and discharged on 03/14/24. The following issues were addressed during this admission: #acute hypoxia #interstitial pulmonary edema #hypervolemia #possible Symptomatic COVID-19 #Low-flow oxygen requirement #hypervolemia 2/2 ESRD #anasarca #healing L rib fractures (01/14/2024) #current smoker The patient was slightly hypoxic on arrival, shortly thereafter he was weaned from 6 L/min to 2 L/min nasal cannula. We did request a second read of his CT which showed a multifocal nodular groundglass infectious process. Additionally he had interstitial edema with small pleural effusions and anasarca suggestive of global hypervolemia in the setting of end-stage renal disease. He was started on remdesivir for symptomatic COVID in the setting of his comorbidities. We did consider dexamethasone, which we elected to hold given his type 2 diabetes, hyperglycemia to 520 at outside hospital, and healing surgical wounds. Shortly after starting remdesivir and receiving dialysis, he was weaned to room air with saturations in the high 90s. We encouraged incentive spirometry use, and made DuoNebs available as needed. Given the patient's profound improvement in his respiratory status following dialysis after just 2 doses of remdesivir, lack of respiratory symptoms, as well as the interstitial pulmonary edema visualized on CT scan at the outside hospital, we are suspicious the patient's acute hypoxia may have been secondary to interstitial pulmonary edema in the setting of end-stage renal disease, and may not have been related to COVID-19 infection. Patient is a current smoker and completed PFTs in the remote past. However he would be due for a repeat evaluation with outpatient pulmonology for further management, given diffuse wheezing on exam and significant smoking history. #PAD s/p recent left BKA #R heel wound #HLD We continued home meds of ASA 81mg daily and atorvastatin 40mg daily. Pain was adequately controlled on PO pain regimen and dressing changes to both L BKA stump and R heel pressure ulcer were completed by nursing. Both wounds appeared with clean borders and non-purulent. #DM2, chronic #Peripheral neuropathy We decreased home glargine to 10 units (from 15 units) - patient reports that he takes 60 units, but both [facility] and [facility] Epic records disagree. He did well with adequate BG control on glargine 10u andmoderate sliding scale insulin with additional meal-associated coverage. Repeat A1C was 8.4%. His home pregabalin 100mg BID was continued. #ESRD on HD (M/W/F) #Hyperphosphatemia #ESRD-related hypertension Mr. Bruner was due for dialysis on 03/13/2024. Inpatient nephrology was consulted, patient received dialysis for about 2.5 hours which was well-tolerated, with 1.5 L removed. He was continued on his home medications of sevelamer 1600mg TID, carvedilol 12.5mg BID, amodipine 10mg daily, and diltiazem 120mg daily while inpatient. Primary Team Inpatient Physicians at [facility] was: Attending Physician(s): Connie Ibarra DO Resident(s): Teodora Barber DO, Patrick Jensen MD Inpatient Provider Contact Information: If you have questions about this document please contact the [facility] binitrotoluene operator at and ask for one of the providers above. If these providers are unavailable your call will be answered by an on- call hospital physician. Important Lab Data: Recent Labs 03/14/24 03403/13/24 0330 WBC 9.4 8.9 HGB 8.3* 8.6* PLATELET 409* 402* Recent Labs 03/14/24 03403/13/24 1255 03/13/24 0633 03/13/24 0330 NA 140 -- 139 138 K 4.8 5.7* 5.8* Not Perf CO2 27 -- 26 25 CL 100 -- 98 99 BUN 52* -- 67* 67* CREATININE 5.92* -- 7.39* 7.22* CALCIUM 9.2 -- 10.0 9.7 MAGNESIUM -- -- -- 0.82 PHOS 5.6* -- 6.3* Not Perf ANIONGAP 13 -- 15 14 Recent Labs 03/14/24 0349 03/13/24 0633 03/13/24 0330 PROT 5.4* 6.4 5.9* ALBUMIN 3.0* 3.3 3.1* BILITOT <0.2* <0.2* <0.2* BILIDIR -- -- 0.1 AST 14 15 12 ALT 17 22 19 ALKPHOS 139* 181* 165* No results for input(s): TROPONINT, CK in the last 168 hours. Recent Labs 03/13/24 033 HA1C 8.4* No results for input(s): LDH, URICACID in the last 168 hours. Recent Labs 03/13/24 033 PT 11.7 PTT 32 Other Labs: None Microbiology: None while at [facility], at OSH: OSH WORK STATION SUPPORT SPECIALIST and COVID panel - positive for [id number] Blood cultures collected at [facility] Diagnostic Studies: Results for orders placed or performed during the hospital encounter of 03/13/[address] Read CT Chest (Exam End: 03/13/2024 5:05 AM) Result Value WORKSTATION ID [id number] Impression 1. Multifocal nodular groundglass densities in both lungs suggestive of an infectious process 2. Interstitial edema, small pleural effusions and anasarca Thank you for letting us participate in the care of this patient. If you are a health care provider and have any questions regarding this report, please contact the number below. For patients who have questions please contact the health care coordinator that requested your imaging first. Pathology: none Pending Studies and Lab Data: None from [facility], does have pending blood cx at [facility] Discharge Conditions/Prognosis: Upon discharge the pt is hemodynamically stable, not requiring supplemental oxygen, afebrile and pain free. Vital Signs on Day of Discharge: Last value Range last 24 hrs Temperature Temp: 36.8 ??C (98.3 ??F) Temp: [36.4 ??C (97.5 ??F)-37.1 ??C (98.8 ??F)] Heart Rate Heart Rate: 64 Heart Rate: [62-69] Blood Pressure BP: 163/76 BP: (157-177)/(69-124) Respiratory Rate Resp: 16 Resp: [13-30] SpO2 SpO2: 97 % SpO2: [92 %-98 %] Discharge to: Home with VNA Discharge Medications: Your Medications Continued medications with new dosing Dose Details insulin lispro 100 unit/mL Solution Commonly known as: HumaLOG Inject 0-8 Units subcutaneously 3 times daily (with meals). What changed: Another medication with the same name was removed. Continue taking this medication, and follow the directions you see here. 0-8 Units Quantity: 1 mL Refills: 12 Continued medications, unchanged Dose Details acetaminophen 325 [...] 120 mg Quantity: 30 capsule Refills: 0 heparin (porcine) 5,000 unit/mL Solution Inject 1 mL subcutaneously every 8 hours for 26 days. 5,000 Units Quantity: 78 mL Refills: 0 insulin glargine-yfgn 100 unit/mL Solution Commonly known as: Semglee Inject 15 Units subcutaneously daily. 15 Units Quantity: 1 mL Refills: 0 pantoprazole EC [address] tablet Commonly known as: Protonix Take 1 tablet by mouth daily. 40 mg Quantity: 90 each Refills: 3 pregabalin 100 mg capsule Commonly known as: Lyrica Take 100 mg by mouth 2 times daily. 100 mg Refills: 0 sevelamer 800 mg tablet Commonly known as: Renagel 2 tablets, 3 times a day with each meal Quantity: 180 tablet Refills: 5 STOPPED Medications oxyCODONE 5 mg tablet Commonly known as: Roxicodone tiZANidine 2 mg tablet Commonly known as: Zanaflex vitamin B Complex-vitamin C-folic Acid 0.8 mg Tablet Commonly known as: Megan-meggan Updated Allergies/ADRs: Allergies Allergen Reactions Clindamycin Swelling. Gabapentin swelling Zoloft [Sertraline] Other reaction(s): Unsure Instructions & Follow-up: Patient Instructions Instructions on Discharge to Home Why you were hospitalized - You were hospitalized for worsening shortness of breath and were found to be COVID-positive. You received a course of antiviral medications for treatment of COVID and are doing well back on room air after initially requiring supplemental oxygen to help with your shortness of breath. You received dialysis on Tuesday 03/13, which also may have helped removed excess fluid causing shortness of breath. Schedulers will call you to obtain pulmonary function tests (PFTs) do determine if other conditions such as chronic obstructive pulmonary disease may have contributed to your symptoms. You will continue to receive home wound care and PT/OT for your BKA, as before. Call your doctor or seek medical attention if you develop the following - chest pain, shortness of breath, feeling dizzy upon standing, passing out, diarrhea, constipation lasting longer than 2 days,fevers (temperature over 100.3), chills, abdominal pain, vomiting, difficulty or discomfort when urinating, bloody or black bowel movements, or any other acute or concerning symptom. Activity level - As before hospitalization Diet - No change in previous diet Driving - As before hospitalization Shower/Bath - Permitted Wound Care - None Home Oxygen therapy - Not necessary Your Discharge Medication List Your Medications Continued medications with new dosing Dose Details insulin lispro 100 unit/mL Solution Commonly known as: HumaLOG Inject 0-8 Units subcutaneously 3 times daily (with meals). What changed: Another medication with the same name was removed. Continue taking this medication, and follow the directions you see here. 0-8 Units Quantity: 1 mL Refills: 12 Continued medications, unchanged Dose Details acetaminophen 325 [...] 120 mg Quantity: 30 capsule Refills: 0 heparin (porcine) 5,000 unit/mL Solution Inject 1 mL subcutaneously every 8 hours for 26 days. 5,000 Units Quantity: 78 mL Refills: 0 insulin glargine-yfgn 100 unit/mL Solution Commonly known as: Semglee Inject 15 Units subcutaneously daily. 15 Units Quantity: 1 mL Refills: 0 pantoprazole EC [address] tablet Commonly known as: Protonix Take 1 tablet by mouth daily. 40 mg Quantity: 90 each Refills: 3 pregabalin 100 mg capsule Commonly known as: Lyrica Take 100 mg by mouth 2 times daily. 100 mg Refills: 0 sevelamer 800 mg tablet Commonly known as: Renagel 2 tablets, 3 times a day with each meal Quantity: 180 tablet Refills: 5 STOPPED Medications oxyCODONE 5 mg tablet Commonly known as: Roxicodone tiZANidine 2 mg tablet Commonly known as: Zanaflex vitamin B Complex-vitamin C-folic Acid 0.8 mg Tablet Commonly known as: Megan-meggan Follow-up: Future Appointments Date Time Provider Department Center 04/04/2024 9:00 AM Melissa Man APRN Wound [facility] Your Inpatient Medical Team at [facility] Name(s) of your inpatient provider(s): Connie Ibarra, DO Your Primary Care Provider: Ken Greer MD [phone] For questions regarding this document or issues relating to this hospitalization on the Medical Service, please contact your inpatient physician through the [facility] Counter Control Operator . Issues afterhours and on weekends will be handled by the Hospitalist staff on-call. General Instructions None Discharge References/Attachments None To-Do List To-Do List Future Appointments Provider Department Dept Phone 04/04/2024 9:00 AM Melissa Man APRN Wound Care at [facility] Arrive at: Glass Lathe Operator Area 4M [phone] Future Orders Complete By Expires Common Pulmonary Function Test [PFT51 Custom] 03/14/2024 04/14/2024 Process Instructions: Suggested Pulmonary Function Tests (PFTs) Guidance DIAGNOSTIC WORK UP Unexplained dyspnea: PFT Basic Bundle, Ambulatory Oximetry Suspect Interstitial Disease: PFT Basic Bundle, Ambulatory Oximetry Suspected COPD: PFT Basic Bundle Suspect Asthma or Wheezing: Spirometry w/o Bronchodilator; in some patients Spirometry After Bronchodilator Suspected Neuromuscular Disease: Spirometry w/o Bronchodilator, MIP/MEP (Mouth Pressures) Chronic Cough: Spirometry w/o Bronchodilator consider Methacholine Challenge if Spirometry is normal Pulmonary Mass: PFT Basic Bundle, Spirometry Post Bronchodilator if no LABA MONITORING OR ASSESSING STATUS CHANGE Known COPD: Spirometry w/o Bronchodilator Known Asthma: Spirometry w/o Bronchodilator possibly FeNO (see FeNO URL Link) Known Interstitial Disease: Spirometry w/o Bronchodilator, Diffusion Capacity Known Neuromuscular Disease: Spirometry w/o Bronchodilator, MIP/MEP (Mouth Pressures) SPECIALIZED PFT TESTING. PLEASE ORDER THE APPROPRIATE ORDER. Supine and Erect Spirometry (PFT57) Shunt Study (PFT34) Methacholine Challenge (Asthma Test) (PFT3) Exercise Induced Asthma Test Treadmill (PFT55) Cardiopulmonary Exercise Test (CPEX) Stationary Bike Ergometer (PFT22) High Altitude Simulation Test (HAST) (PFT38) If there is question please reach out to Pulmonology. Scheduling Instructions: Questions: Preferred location?: [facility] Clinics PFT Basic Bundle: (Pulse Oximetry, Kevin w/o Bronchodilator, Diffusing Capacity): PFT Basic Bundle:(Pulse Oximetry, Kevin w/o Bronchodilator, Diffusing Capacity) Spirometry without Bronchodilator: Spirometry without Bronchodilator Spirometry Pre and Post Bronchodilator: Diffusing Capacity (DLCO) Testing: Diffusing Capacity (DLCO) Testing FeNO (Exhaled Nitric Oxide) Test: MIP & MEP (Mouth Spirometry) testing: Pulse Oximetry - Ambulatory (Desaturation Test) Clinic Testing: Home O2 Evaluation: 6 Minute Walk Test: Lung Volumes: Lung Volumes Referral to Home Health [REF34 Custom] As directed Process Instructions: If no progress note charted, please enter Clinical details in comments. Scheduling Instructions: Comments: Please evaluate Gerson Bruner for admission to Home Health. [address] [place] [address] (home) Date of : 1965 Inpatient DOCUMENTATION FOR VNA SERVICES (INCLUDING THOSE PATIENTS WITH MEDICARE COVERAGE REQUIRING HOME VNA SERVICES AND/OR HOSPICE SERVICES) PATIENT'S LOCATION: Gerson Bruner [address] [facility] [address] (home) Cell: Telephone Information: Point Of Sale Associate's Name: Gerson Bruner (patient) In discussion with the attending physician, it is certified that this patient is under their care and that they, or a Nurse Practitioner, Clinical Nurse specialist or Physician Real Estate Professional who is working directly with them, had a face to face encounter that meets the physician face to face encounter requirements with this patient on 03/14/2024 (MD please enter DC date here) The encounter with the patient was in whole, or in part, for the following medical condition, whichis the primary reason for home health care services: L BKA In discussion with the provider, it is certified that, based on their findings, the following services are medically necessary for home health services. To provide the following care/treatments with the clinical findings supporting the need for services as follows: HOME CARE ORDERS: Resumption of care: RN ORDERS: Assess vital signs, cardiopulmonary status, nutrition, hydration, elimination -Additional Orders: Monitor medication effectiveness and management, Reinforce education regarding health issues, and Assess wound or incision (please add detailed wound care instructions here: ) PT ORDERS: Continue rehab for endurance, gait stability and strength with mobility and transfers. Home safety evaluation. Home exercise program if appropriate. OT ORDERS: Assess and continue rehab for managing ADLs. HOME HEALTH CARE AGENCY: [facility] [address] [place] [id number] START OF CARE: within 24-48 hours of discharge In discussion with the attending physician, it is certified that the clinical findings support thatthis patient is homebound because absences from home require considerable and taxing effort due to:Unsteady gait, poor balance, requiring assistive devices and/or assistance of another. Please note that any additional orders needs or changes will need to be obtained from this patient's PCP: MD [address] / [place] [id number] . All VNA agencies which cover the area of patient's residence have been reviewed, either verbally or in writing, and patient/familyhave chosen the home health care agency noted. Questions: Disciplines Requested: Nursing Physical Therapy Occupational Therapy Provider Contact Information: Ken Greer MD [address] / [place] [id number] Signed: Teodora Barber DO, PGY-1 Discharged: 03/14/2024 documented in this encounter Discharge Instructions * Patient Instructions* Patrick Jensen MD - 03/13/2024 7:34 AM EDT Instructions on Discharge to Home Why you were hospitalized - You were hospitalized for worsening shortness of breath and were found to be COVID-positive. You received a course of antiviral medications for treatment of COVID and are doing well back on room air after initially requiring supplemental oxygen to help with your shortness of breath. You received dialysis on Tuesday 03/13, which also may have helped removed excess fluid causing shortness of breath. Schedulers will call you to obtain pulmonary function tests (PFTs) do determine if other conditions such as chronic obstructive pulmonary disease may have contributed to your symptoms. You will continue to receive home wound care and PT/OT for your BKA, as before. Call your doctor or seek medical attention if you develop the following - chest pain, shortness of breath, feeling dizzy upon standing, passing out, diarrhea, constipation lasting longer than 2 days,fevers (temperature over 100.3), chills, abdominal pain, vomiting, difficulty or discomfort when urinating, bloody or black bowel movements, or any other acute or concerning symptom. Activity level - As before hospitalization Diet - No change in previous diet Driving - As before hospitalization Shower/Bath - Permitted Wound Care - None Home Oxygen therapy - Not necessary Your Discharge Medication List Your Medications Continued medications with new dosing Dose Details insulin lispro 100 unit/mL Solution Commonly known as: HumaLOG Inject 0-8 Units subcutaneously 3 times daily (with meals). What changed: Another medication with the same name was removed. Continue taking this medication, and follow the directions you see here. 0-8 Units Quantity: 1 mL Refills: 12 Continued medications, unchanged Dose Details acetaminophen 325 [...] 120 mg Quantity: 30 capsule Refills: 0 heparin (porcine) 5,000 unit/mL Solution Inject 1 mL subcutaneously every 8 hours for 26 days. 5,000 Units Quantity: 78 mL Refills: 0 insulin glargine-yfgn 100 unit/mL Solution Commonly known as: Semglee Inject 15 Units subcutaneously daily. 15 Units Quantity: 1 mL Refills: 0 pantoprazole EC [address] tablet Commonly known as: Protonix Take 1 tablet by mouth daily. 40 mg Quantity: 90 each Refills: 3 pregabalin 100 mg capsule Commonly known as: Lyrica Take 100 mg by mouth 2 times daily. 100 mg Refills: 0 sevelamer 800 mg tablet Commonly known as: Renagel 2 tablets, 3 times a day with each meal Quantity: 180 tablet Refills: 5 STOPPED Medications oxyCODONE 5 mg tablet Commonly known as: Roxicodone tiZANidine 2 mg tablet Commonly known as: Zanaflex vitamin B Complex-vitamin C-folic Acid 0.8 mg Tablet Commonly known as: Megan-mgegan Follow-up: Future Appointments Date Time Provider Department Center 04/04/2024 9:00 AM Melissa Man APRN Wound [facility] Your Inpatient Medical Team at [facility] Name(s) of your inpatient provider(s): Connie Ibarra, DO Your Primary Care Provider: Ken Greer MD [phone] For questions regarding this document or issues relating to this hospitalization on the Medical Service, please contact your inpatient physician through the [facility] Counter Control Operator . Issues afterhours and on weekends will be handled by the Hospitalist staff on-call. documented in this encounter Medications at Time [...] with each meal 180 tablet 5 03/14/2024 heparin, porcine, 5,000 unit/mL Solution Inject 1 mL subcutaneously every 8 hours for 26 days. 78 mL 03/14/2024 04/09/2024 insulin glargine-yfgn (Semglee) 100 unit/mL Solution Inject 15 Units subcutaneously daily. 1 mL 03/14/2024 04/29/2024 documented as of this encounter Progress Notes * Radha Robles MD - 03/14/2024 2:47 PM EDT Patient is discharged home today. He will have his dialysis at [facility] in [place], his home center, tomorrow. Radha Robles. * Sofy Flynn - 03/14/2024 2:47 PM EDT Office of Care Management/Computer Terminal Operator Name: Gerson Bruner Presenting Issue: Outpatient Dialysis Update CM Notified [facility] HD unit that patient is scheduled for discharge soon. The dialysis unit is ready for the patient on 03/15. The patient will have a schedule of MWF at 0600 Plan: Discharge Summary and last acute dialysis records will be faxed to the lead investigator upon discharge. This office will be available to the patient, Certified Nursing Attendant-RN and Residential Installer for further assistance. Dialysis Unit Address: [facility] Dialysis [facility] [address] [facility] Sofy Flynn Computer Terminal Operator * Connie Ibarra DO - 03/14/2024 2:47 PM EDT Hospital Medicine - Attending Day of Discharge Documentation Discharge diagnosis Active Hospital Problems Diagnosis Acute hypoxic respiratory failure Resolved Hospital Problems No resolved problems to display. Secondary Issues Active Non-Hospital Problems Diagnosis Surgical wound present Status post below knee [...] Leg cramps Cigarette smoker Unspecified hearing loss I have personally seen and examined the patient and they are ready for discharge. Select the appropriate statement that describes your involvement and care and omit the other: I spent <30 minutes (Day of Discharge Code 92034) involved in the final examination of the patient, discussion of the hospital stay, instructions for continuing care to all relevant caregivers, and preparation of discharge records, prescriptions and referral forms. Plans Discharge to home Follow-up scheduled with nephro Please see the Discharge Summary for complete details of any medication changes and additional plans. * Sara Elizabeth RN - 03/14/2024 2:20 PM EDT Gerson Bruner discharged to Home by private car with Spouse. All belongings sent with patient. IVAremoved, skin free from pressure ulcers. Discharge instructions, medications, and follow-up appointments reviewed, all questions answered. VNA paperwork faxed. Patient instructed to call with concerns. documented in this encounter H&P Notes * Mignon Yo MD - 03/13/2024 4:07 AM EDT Images from the original note were not included. [facility] Medicine 2300 History and Physical PATIENT INFO: Name: Gerson Bruner : 1965 PCP: Ken Greer MD PCP phone number: [phone] Date of Admission: 03/13/2024 Responsible Attending:Cristian Malloy MD Active Hospital Problems Diagnosis Acute hypoxic respiratory failure Resolved Hospital Problems No resolved problems to display. Active Non-Hospital Problems Diagnosis Surgical wound present Status post below knee [...] Leg cramps Cigarette smoker Unspecified hearing loss ID: Gerson Bruner is a 58 y.o. male w/ a history of ESRD on HD (M/W/F), small- vessel TIA (2018), type 2 diabetes mellitis, active tobacco use, and a recent admission to vascular surgery for left gangrenous calcaneal and lateral foot ulcers s/p a guillotine amputation who presents in transfer from [facility] ED for symptomatic COVID-19. HPI: Per records, the patient had a recent admission to vascular surgery service for worsening left footchronic wounds on 02/18/2024 and discharged on 02/25/2024 to an acute rehab after a left BKA. He was discharged from the rehab on Wednesday03/10/2024 to home. At home, his spouse noted that he was a little altered. At night, he seemed more confused and felt warm to touch, though she did not take his temperature. She brought him to the ED at [facility] the following day. In the ED, he was noted to be afebrile, HR 86, BP 204/66, RR 12 and he was saturating at 88% on room air. The patient was placed on oxygen which was titrated to 6L w/ appropriate response. Labs were pertinent for WBC 13.1, Hg 8.4, plt 436, VBG pH 7.38, pCO2 44, HCO3 26, lactate 1.8 to 1.3, Na 134, K 5.6, BUN 69, Cr 7, glucose 320 -> 520, Ca 8.7, LFTs normal except alk phos 180 and albumin 2.2,procalcitonin 0.8, TSH normal, COVID-19 positive, but the rest of the WORK STATION SUPPORT SPECIALIST was negative. CXR was obtained which showed extensive bilateral patchy infiltrates. CT chest w/o contrast was also obtained w/ evidence of acute fractures of the left 8th and 9th ribs, extensive bilateral ground glass opacities and small bileral pleural effusions R>L and anasarca. Over the course of a few hours, the patient was noted to have increased oxygen requirement, and HFNC was considered, but not initiated. [facility] but the patient did not meet MICU level criteria, so he was accepted to hospital medicine instead. Overall, ED interventions included a liter of LR, a dose of remdesivir, 6mg dose of dexamethasone as well as a dose of cefepime and vancomyin. The patient also received 10 units of short acting insulin, and 1000mg of IV offirmev prior to transfer. On arrival, he is hemodynamically stable on 6L, but I am able to wean him to 2L w/ sustaining O2 sats >93%. He is confused, and reports that he does not understand why he is here. He thinks that he is at his baseline respiratory status. He also says that his spouse made him go to the ED, and that he did not feel different then either. He denies any fever, chills, cough, lightheadedness, dizziness, but he is fatigued, and this is howhe usually feels in between HD sessions. He smokes cigarettes, about a 1/2 to a pack a day, done so for years. He is not interested in a nicotine patch. He denies any alcohol recreational drugs use. He is FULL CODE. Past Medical History: Diagnosis Date Anemia Chronic kidney disease CKD (chronic kidney disease) stage 4, GFR 15-29 ml/min Diabetes mellitus Herniation of lumbar intervertebral disc with radiculopathy 08/16/2015 L4-5 left Hypertension Past Surgical History: Procedure Laterality Date PRO AMPUTATION LOW LEG THRU TIB/FIB Left 02/21/2024 @AMPUTATION, BELOW-KNEE (WRVU 15.37) performed by Kristi Renae MD at [facility] MAIN OR PRO AMPUTATION LOW LEG, CIRCULAR Left 02/18/2024 @AMPUTATION, BELOW-KNEE, OPEN, GUILLOTINE (WRVU 9.79) performed by Kristi Renae MD at [facility] MAIN OR PRO ANASTOMOSIS, AV, ANY SITE Left 09/05/2018 AV FISTULA CREATION, DIRECT HEMODIALYSIS, ANY SITE, EG GABRIEL FISTULA UPPER EXTREMITY (WRVU 11.9) performed by Scout Reese MD at [facility] MAIN OR PRO COLONOSCOPY, REMV LESN, SNARE N/A 09/26/2019 COLONOSCOPY, POLYPECTOMY, REMOVAL LESION BY SNARE (WRVU 4.67) performed by Kaye Gibbs MD at [facility] ENDOSCOPY Family History Problem Relation Age of Onset Diabetes Mother Cancer Father Diabetes Paternal Grandmother Heart Disease Paternal Grandfather Social History Socioeconomic History Marital status: Spouse [...] Resource Strain: Not on file Food Insecurity: Not on file Transportation Needs: No Transportation Needs (02/20/2024) PRAPARE - Transportation Lack of Transportation (Medical): No Lack of Transportation (Non-Medical): No Physical Activity: Not on file Intimate Partner Violence: Not At Risk (02/19/2024) IPV Inpatient Questions Prevent Contact with Others: no Feels Threatened by Someone: no Feels Unsafe at Home: no Physical Signs of Abuse Present: no Housing Stability: Low Risk (02/20/2024) Housing Stability Vital Sign Unable to Pay for Housing in the Last Year: No Number of Places Lived in the Last Year: 1 Unstable Housing in the Last Year: No Medications Prior to Admission Medication Sig Dispense Refill Last Dose cholecalciferol (Vitamin D3) 1,000 unit tablet Take 1 tablet by mouth daily. 90 tablet 3 03/12/2024 [DISCONTINUED] acetaminophen (Tylenol) 325 mg tablet Take 3 tablets by mouth every 6 hours. 30 tablet 1 Past Month [DISCONTINUED] oxyCODONE (Roxicodone) 5 mg tablet Take 1 tablet by mouth every 4 hours as needed for Pain (moderate pain (4-6)). 20 tablet 0 03/12/2024 sevelamer (Renagel) 800 mg Tablet 2 tablets, 3 times a day with each meal 180 tablet 5 03/12/2024 carvediloL (Coreg) 12.5 mg Tablet Take 1 tablet by mouth 2 times daily (with meals). 60 tablet 11 03/12/2024 atorvastatin (LIPITOR) 40 mg Tablet Take 1 tablet by mouth every evening. 90 tablet 3 03/12/2024 amLODIPine (NORVASC) 10 mg Tablet Take 1 tablet by mouth daily. 90 tablet 3 03/12/2024 pregabalin (LYRICA) 100 mg Capsule Take 100 mg by mouth 2 times daily. 03/12/2024 pantoprazole EC (Protonix) [address] tablet Take 1 tablet by mouth daily. 90 each 3 Unknown [DISCONTINUED] insulin lispro (HumaLOG) 100 unit/mL Solution Inject 0-6 Units subcutaneously every 4 hours. 1 mL 12 Unknown [DISCONTINUED] insulin lispro (HumaLOG) 100 unit/mL Solution Inject 0-8 Units subcutaneously 3 times daily (with meals). 1 mL 12 Unknown [DISCONTINUED] dilTIAZem CD (Cardizem CD) 120 mg CD (ER) 24 hr casule Take 1 capsule by mouth daily. 30 capsule 0 [DISCONTINUED] heparin, porcine, 5,000 unit/mL Solution Inject 1 mL subcutaneously every 8 hours for 26 days. 78 mL 0 [DISCONTINUED] insulin glargine-yfgn (Semglee) 100 unit/mL Solution Inject 15 Units subcutaneously daily. 1 mL 0 Unknown [DISCONTINUED] tiZANidine (Zanaflex) 2 mg tablet Take 2 tablets by mouth every 8 hours as needed. 30 tablet 0 Unknown [DISCONTINUED] vitamin B Complex-vitamin C-folic Acid (Megan-meggan) 0.8 mg Tablet Take 1 tablet by mouth daily. 30 tablet 0 Unknown [DISCONTINUED] aspirin 81 mg Tablet, Chewable Take 81 mg by mouth daily. 30 tablet 3 Allergies Allergen Reactions Clindamycin Swelling. Gabapentin swelling Zoloft [Sertraline] Other reaction(s): Unsure Objective: Last value Range last 24 hrs Temperature Temp: 36.9 ??C (98.4 ??F) Temp: [36.7 ??C (98 ??F)-36.9 ??C (98.4 ??F)] Heart Rate Heart Rate: 68 Heart Rate: [68-77] Blood Pressure BP: 154/76 BP: (154-155)/(76-80) Art Line BP BP (Arterial Line): -- MAP (NBP): [81 mmHg-103 mmHg] Respiratory Rate Resp: 15 Resp: [13-16] SpO2 SpO2: 96 % SpO2: [96 %-100 %] Oxygen Delivery Oxygen Therapy O2 Device: Nasal cannula O2 Flow Rate (L/min): 3 L/min No intake or output data in the 24 hours ending 03/13/24519 Patient Vitals for the past 168 hrs: Weight 03/13/24 0214 89.2 kg (196 lb 10.4 oz) 03/13/24104 88.1 kg (194 lb 3.6 oz) Admit wt: 88.1 kg Physical Exam: Gen: pleasant, in no acute distress, lying on the stretcher HEENT: PERRL and EOMI, normal sclera and normal appearing oropharynx CV: regular rate, normal rhythm, no obvious murmurs or extra heart sounds Pulm: decreased breaths bilaterally in the posterior lung marti. No increased work of breathing Abd: soft, nondistended, nontender to palpation. +bs Ext: warm and well perfused. Left BKA. Pitting edema to the bilateral thighs 1+ Neuro: alert and appropriate. Psych: cooperative Lines/Tubes/Drains PIV 03/13/24 0000 basilic vein (medial side of arm), right (Active) Indication/Daily Review of Necessity fluid therapy intermittent;medication therapy intermittent 03/13/2499 Site Preparation/Maintenance site cleansed: chlorhexidine solution;dressing: dry and intact 03/13/2499 Securement catheter stabilization device, secured with 03/13/2499 Patency/Maintenance flushed without difficulty 03/13/2499 Phlebitis 0-->no symptoms 03/13/2499 Infiltration 0-->no symptoms 03/13/2499 Site Signs/Symptoms no redness;no swelling;no warmth;no pain;no drainage 03/13/2499 Number of days: 0 PIV 03/13/24 0000 22 gauge brachial vein, right (Active) Indication/Daily Review of Necessity fluid therapy intermittent;medication therapy intermittent 03/13/2499 Site Preparation/Maintenance site cleansed: chlorhexidine solution;dressing: dry and intact 03/13/2499 Securement catheter stabilization device, secured with 03/13/2499 Patency/Maintenance flushed without difficulty 03/13/2499 Phlebitis 0-->no symptoms 03/13/2499 Infiltration 0-->no symptoms 03/13/2499 Site Signs/Symptoms no redness;no swelling;no warmth;no pain;no drainage 03/13/2499 Number of days: 0 Hemodialysis Arteriovenous (AV) Access 02/21/24 upper arm, left (Active) Number of days: 21 Medications: amLODIPine 10 mg Oral Daily ### atorvastatin 40 mg Oral QPM ### carvediloL 12.5 mg Oral BID ### cholecalciferoL 1,000 Units Oral Daily ### pantoprazole EC 40 mg Oral Daily ### pregabalin 100 mg Oral BID ### sevelamer carbonate 1,600 mg Oral TID ### sodium chloride 0.9 % (flush) 5 mL Intravenous BID ### heparin (porcine) 5,000 Units Subcutaneous Q8H [facility] ### [START ON 03/14/2024] remdesivir 100 mg Intravenous Q24H ### insulin lispro 1-6 Units Subcutaneous Q4H [facility] ### insulin lispro 0-8 Units Subcutaneous TID ### insulin glargine (Lantus;Semglee) (100 unit/mL) subcutaneous injection 10 Units Subcutaneous Daily ### aspirin 81 mg Oral Daily ### dilTIAZem CD 120 mg Oral Daily ### sodium chloride 0.9 % (flush), lidocaine, melatonin, glucose 40% oral geL OR dextrose OR glucagon Recent Labs 03/13/24329 WBC 8.9 HGB 8.6* HCT 26.3* PLATELET 402* NEUTROABS 7.78* Recent Labs 03/13/24 0330 02/25/24 0214 02/24/24 0607 02/23/24 0411 NA -- 137 137 137 K Not Perf 5.1* 4.7 4.9 CL -- 98 97* 98 CO2 -- 26 26 26 BUN -- 32* 25* 34* CREATININE -- 6.92* 5.70* 7.00* GLUCOSE Not Perf 194 123 98 ANIONGAP -- 13 14 13 Recent Labs 03/13/24 0330 02/25/24 0214 02/24/24 0607 02/23/24 0411 CALCIUM -- 8.9 9.2 8.5 MAGNESIUM -- 0.87 0.84 0.83 PHOS Not Perf 5.6* 4.8* 5.5* Recent Labs 02/22/24 0453 ALBUMIN 2.8* Recent Labs 03/13/24 0330 PT 11.7 INR 1.0 PTT 32 No results for input(s): TROPONINT, CK, PROBNP in the last 7068 hours. No results for input(s): TSH, CORTISOL in the last 7068 hours. Invalid input(s): [id number] No results for input(s): HA1C in the last 7068 hours. No results for input(s): LDH, HAPTOGLOBIN, URICACID in the last 168 hours. ABG (Arterial Blood Gas) No results found for: PHART, PO2ART, [id number], [id number] Microbiology: OSH WORK STATION SUPPORT SPECIALIST and COVID panel - positive for [id number] Blood cultures collected at [facility] Pertinent radiology/diagnostic studies: CT chest w/o contrast at [facility] ASSESSMENT/PLAN: Gerson Bruner is a 58 y.o. male w/ a history of ESRD on HD (M/W/F), small- vessel TIA (2018), type 2 diabetes mellitis, active tobacco use, and a recent admission to vascular surgery for left gangrenous calcaneal and lateral foot ulcers s/p a guillotine amputation [facility] vs other multilobal pneumonia. Given the history and the overall presentation, it seems unlikely that the patient has bacterial pneumonia, and the CT is likely indicative of a viral process, especially in the context of a known COVID-19 infection. In light of that, we will hold of on any antibiotic coverage at this time. The patient is requiring low-flow oxygen supportat this time and has risk factors that would put him in a category of low to moderate risk COVID but w/ risk factors for progression to severe COVID (ESRD, PAD, prior CVA etc) which warrants remdesivir treatment. The patient is stable, however, so we will defer dexamethasone administration due to risks associated with steroids in his case. The rest of the plan is below: #Symptomatic COVID-19 #Low-flow oxygen requirement - start remdesivir - hold dexamethasone at this time - c/w supplemental oxygen - follow up on the second read from CT chest w/o contrast ([facility]) - duo-nebs q4h PRN - incentive spirometry PRN - follow up on blood cultures at [facility] #PAD s/p recent left BKA #HLD - c/w ASA 81mg daily - c/w atorvastatin 40mg daily - wound care and pain control PRN #DM2, chronic #Peripheral neuropathy - decreased home glargine to 10 units (from 15 units) - patient reports that he takes 60 units, butboth [facility] and [facility] Epic records disagree - moderate SSI - meal-associated coverage - carb-controlled diet - repeat a1c pending - c/w pregabalin 100mg BID #ESRD on HD (M/W/F) #Hyperphosphatemia #ESRD-related hypertension - c/w HD, nephrology consult - c/w sevelamer 1600mg TID - c//w carvedilol 12.5mg BID - c/w amodipine 10mg daily - c/w diltiazem 120mg daily #Routine: - DVT: heparin subcu - GI: home pantoprazole 40mg daily - Summery of Glc management: as above - Diet: carb-controlled Consults: nephrology CODE Status: FULL Mignon Yo MD PGY-3 Internal medicine, [facility], pager [phone] [facility] medicine, pager [phone] Associated attestation - Connie Ibarra DO - 03/13/2024 9:52 PM EDT Attending Staff Documentation I have examined the patient myself on 03/13/2024 and reviewed all labs and studies personally. Please see Dr. Yo's documentation for details of the patient history and data. I have discussed, reviewed and agree with the documented history with ROS, physical findings, labs/studies, assessment and plan of care. I saw and evaluated this patient on day rounds. 58M admitted with AHRF found to be COVID positive so was started overnight on Remdesivir (dexamethasone was held given O2 req only about 2L). He additionally had evidence of pulmonary edema which I suspect was also contributing to his hypoxia. He is ESRD and went for HD this afternoon and when I saw him after he was on RA. Connie Ibarra, 03/13/2024 documented in this encounter Miscellaneous Notes * Plan of Care - Sara Elizabeth RN - 03/14/2024 2:18 PM EDT VSS on RA. BG checked and covered per orders. Pt with LLE stump dressing and RLE wound dressing C/D/I. Pt at bedside. Plan to DC home today. Problem: Fall Injury Risk Goal: Absence of Fall and Fall-Related Injury Outcome: Outcome (s) achieved Problem: Adult Inpatient Plan of Care Goal: Plan of Care Review Outcome: Outcome (s) achieved Goal: Patient-Specific Goal (Individualized) Outcome: Outcome (s) achieved Goal: Absence of Hospital-Acquired Illness or Injury Outcome: Outcome (s) achieved Goal: Optimal Comfort and Wellbeing Outcome: Outcome (s) achieved Goal: Readiness for Transition of Care Outcome: Outcome (s) achieved Problem: Gas Exchange Impaired Goal: Optimal Gas Exchange Outcome: Outcome (s) achieved * Initial Assessments - Angely Cedeno RN - 03/14/2024 10:56 AM EDT Office of Care Management Initial Assessment Angely Cedeno RN reviewed record and discussed patient with Care Team. Source of Information: Team, bedside nurse, medical record, and Spouse Introduced self/reviewed role; services accepted. Admitted From: Home Reason for Hospitalization: Acute hypoxic respiratory failure [J96.01] Covid Vaccination Status: Unvaccinated Last COVID test: Past medical History: Past Medical History: Diagnosis Date Anemia Chronic kidney disease CKD (chronic kidney disease) stage 4, GFR 15-29 ml/min Diabetes mellitus Herniation of lumbar intervertebral disc with radiculopathy 08/16/2015 L4-5 left Hypertension Hospitalizations Within the Past 30 Days: current reason for admission unrelated to previous admission Current Decision-Making Capacity: Self Advance Care Planning: Attempt Cardiopulmonary Resuscitation - Inpatient Received -Advanced Directive: Yes, on file Who is your DPOA-HC?: Spouse Current Coping/Education/Information Needs: denies Current Functional Ability: Assistive Equipment and Assistive Person Functional Status Prior to Admission: Assistive Equipment Home Environment: Others in the home: spouse. Current Living Arrangements: home/apartment/condo. Accessibility Concerns:2 story home. Resides on first level. In the last 12 months, was there a time when you were not able to pay the mortgage or rent on time?: No In the past 12 months, how many times have you moved where you were living?: 1 At any time in the past 12 months, were you homeless or living in a assisted (including now)?: No In the past 12 months has the electric, gas, oil, or water [employer] threatened to shut off services in your home?: No Within the past 12 months, you worried that your food would run out before you got the money to buymore.: Never true Within the past 12 months, the food you bought just didn't last and you didn't have money to get more.: Never true Resource / Environmental Concerns: Resource/Environmental Concerns: none In the past 12 months, has lack of transportation kept you from medical appointments or from getting medications?: No In the past 12 months, has lack of transportation kept you from meetings, work, or from getting things needed for daily living?: No Current DME: wheelchair - manual (offloading boot) Home Address listed as: [address] [address] Social & Family Supports: All names listed below confirmed with patient as current and correct Extended Emergency Contact Information Primary Emergency Contact: Melissa Bruner Address: [address] [place] [address] [place] Relation: Spouse Current Care Provided by: self, spouse/significant other Provides Primary Care For: Caregiver if needed: spouse Quality of Family relationships: helpful, involved Community Resources being provided currently: homecare agency Behavioral Health History: denies Substance Use/Abuse listed: Social History Tobacco Use Smoking Status Light Smoker Current packs/day: 0.00 Types: Cigarettes Last attempt to quit: 12/26/2018 Years since quittin.2 Smokeless Tobacco Never Tobacco Comments smoking a few a day 0 No problems reported 1-2 Low level 3-5 Moderate level 6-8 Substantial level 9- 10 Severe level 0 to 7 points: Low risk 8 to 15 points: Medium risk 16 to 19 points: High risk 20 to 40 points: Addiction likely Other Pertinent/Service Specific Information: [facility]) Health/Prescription Coverage: Primary Insurance: MEDICARE Payor: MEDICARE / Plan: MEDICARE PART A & B / Product Type: *No Product type* / Secondary Insurance: N/A ONLY if patient has Medicare A&B - Does this patient have secondary insurance?: No ; Prescription Coverage: Yes Preferred Pharmacy: [id number] - [place], [place] - [address] [facility] [address] [facility] [address] [address] [place] [address] Status: Patient is a : No Primary Care Provider confirmed: Ken Greer MD [phone] Patient/Caregiver Goals of Treatment: to d/c home with TATA with VNA Potential Needs for Transition of Care: home health care Agency Referrals: I discussed via phone with the herbicide service sales representative (spouse) to: discuss discharge planning needs. provide a list of Home Health Agencies / Durable Medical Equipment vendors which serve their preferred geographic area. Spouse agrees to TATA care referrals to below agencies They have requested referrals to: [facility] [address] [place] [address] Note routed to a Computer Terminal Operator who will communicate referrals to facilities and provide any required information. Resumption of Hemodialysis at: [facility] [address] [place] [address] Patient is a current client on: Wednesday, Wednesday, Wednesday at 0600 (time) Transportation to HD is provided by: spouse Note routed to a Computer Terminal Operator who will communicate referrals to facilities and provide any required information. Transportation: no concerns Transportation Anticipated: family or friend will provide Concerns to be Addressed: no discharge needs identified Assessment: Patient is admitted to medicine service for Acute hypoxic respiratory failure [J96.01].Slab Stripper called patient's spouse (Melissa) to obtain all the information for this IA. Patient lives on the first floor of a 2 story home. Patient was recently discharged to a SNF facility from [facility] (to [facility]) and was since discharged from the SNF to home. Per Melissa (spouse)- Patient was only home for one day before getting transferred to [facility] from an OSH ([facility]). Patient has been using a manual wheelchair and offloading boot to mobilize around the home. Melissa (spouse) plans to transport patient home when medically ready. Plan: Plan for patient to discharge home with family and Resumption of care services with above agencies. A member of the Care Management team will continue to monitor progress, follow for continuity of care and assist with transition of care planning. Angely Cedeno RN, Pager-[phone] * Patient Refusal of Care - Sara Elizabeth RN - 03/14/2024 9:11 AM EDT Patient refusing chair alarm when up in wheelchair. The reason pt gave for this refusal was I dont need to have any alarm on. Pt scores high fall risk. Nursing actions taken during this shift to address patient???s refusal included Education about importance of care Plan to address patient???s refusal include Nursing leadership notified * Plan of Care - Bernie Alfaro RN - 03/13/2024 11:23 PM EDT OUTCOME EVALUATION NOTE: OUTCOME SUMMARY: Patient actively following plan of care at this time. PLAN MOVING FORWARD: Vitals WNL Hemodynamically stable at this time Alert and Oriented x4 Wheelchair bound at baseline RA NSR Telemetry Dialysis today 2L removed No s/s of distress at this time Covid Positive Tylenol for pain management L BKA R Heel wound (Foam dressing/Medihon INDIVIDUALIZED FALL PREVENTION INTERVENTIONS: Patient-specific fall risk factors per assessment: [current deficits]: Advanced age. Generalized weakness. L BKA. R heel wound. Wheelchair bound at baseline. Covid positive. Assistance [level of assistance required for transfers and ambulation]: Wheelchair bound at baseline. Patient is a one assist to the restroom. Call light within reach. Bed alarm is on. Bed low and locked position. No s/s of distress at this time. Supervision [direct monitoring required during toileting and ADLs]: Hourly rounding implemented. Surveillance [continuous indirect monitoring]: Room near nurses station. Patient-specific fall prevention interventions for sensory deficits provided, if applicable: [X] N/A CARE PLAN GOAL OUTCOME EVALUATION: Vitals WNL Hemodynamically stable at this time Alert and Oriented x4 Wheelchair bound at baseline RA NSR Telemetry Dialysis today 2L removed No s/s of distress at this time Covid Positive Tylenol for pain management L BKA R Heel wound (Foam dressing/Medihoney) * Plan of Care - Radha Ram RN - 03/13/2024 7:59 PM EDT OUTCOME EVALUATION NOTE: OUTCOME SUMMARY: AOx4, BP elevated but otherwise VSS and was able to be weaned to RA Denies SOB, denies pain Dialyzed today (see note) Dressing to R heel changed per home regimen (wound finish cleaner, medihoney & mepilex). Incisional dressing to L residual limb changed as well Transfers well from bed or toilet to wheelchair SBA at bedside during the day, supportive of patient PLAN MOVING FORWARD: Monitor respiratory status Wound care Discharge planning INDIVIDUALIZED FALL PREVENTION INTERVENTIONS: Patient-specific fall risk factors per assessment: [current deficits]: BKA, use of mobility aid, lines & drains Assistance [level of assistance required for transfers and ambulation]: SBA for transfers, unable to ambulate Supervision [direct monitoring required during toileting and ADLs]: arms reach Surveillance [continuous indirect monitoring]: spO2, tele Patient-specific fall prevention interventions for sensory deficits provided, if applicable: [X] N/A CARE PLAN GOAL OUTCOME EVALUATION: * Consult Note - Radha Robles MD - 03/13/2024 2:14 PM EDT NEPHROLOGY CONSULT NOTE PATIENT: Gerson Bruner : 1965 Date of Consultation: 03/13/2024 Admit Date: 03/13/2024 Reason for consult: ESRD on iHD HPI: Gerson Bruner is a 58 year old male with PMHx ESRD on iHD MWF at [place], [place], DM-2, HTN, small-vessel TIA (2018), and a recent admission to vascular surgery for left gangrenous calcaneal and lateral foot ulcers s/p a guillotine amputation who presents in transfer from [facility] ED for symptomaticCOVID-19. The patient was recently discharged to home from acute rehab on 03/10/2024. He was in acute rehab after he underwent left BKA. At his home, the patient's spouse noticed him to be short of breath, confused and hot to touch. She took the patient to [facility] initially where he was found to have SBP > 200 mmHg. Lactate 1.8. WBC - 13.1 Glucose 520 mg/dL. Patient was found to be COVID-19 +. CXR showed extensive bilateral patchy infiltrates. CT chest w/o contrast suggested evidence of acute fractures of the left 8th and 9th ribs, extensive bilateral ground glass opacities and small bileral pleural effusions R>L and anasarca. Over the course of a few hours, the patient was noted to have increased oxygen requirement, and HFNC was considered, but not initiated. Patient was transferred to [facility]. After presenting here, patient was treated with Remdesivir, Dexamethasone, and Cefepime and Vancomycin. He is lying on the bed on 2-3 L of Oxygen. He appears to be in minimal distress from lying in the bed/COVID-19/ and wants to go home. He has not missed any dialysis recently. No LE edema. No abdominal wall edema is noted. He is talking in full sentences. His spouse is at the bedside. Patient is seen later again on the hemodialysis. He will get 3 hours of dialysis today. The UF targeted is 3 L. Access is Right arm AVF. His BP is high which is expected to improve with HD. Past Medical History: Diagnosis Date Anemia Chronic kidney disease CKD (chronic kidney disease) stage 4, GFR 15-29 ml/min Diabetes mellitus Herniation of lumbar intervertebral disc with radiculopathy 08/16/2015 L4-5 left Hypertension Past Surgical History: Procedure Laterality Date PRO AMPUTATION LOW LEG THRU TIB/FIB Left 02/21/2024 @AMPUTATION, BELOW-KNEE (WRVU 15.37) performed by Kristi Renae MD at [facility] MAIN OR PRO AMPUTATION LOW LEG, CIRCULAR Left 02/18/2024 @AMPUTATION, BELOW-KNEE, OPEN, GUILLOTINE (WRVU 9.79) performed by Kristi Renae MD at [facility] MAIN OR PRO ANASTOMOSIS, AV, ANY SITE Left 09/05/2018 AV FISTULA CREATION, DIRECT HEMODIALYSIS, ANY SITE, EG GABRIEL FISTULA UPPER EXTREMITY (WRVU 11.9) performed by Scout Reese MD at [facility] MAIN OR PRO COLONOSCOPY, REMV LESN, SNARE N/A 09/26/2019 COLONOSCOPY, POLYPECTOMY, REMOVAL LESION BY SNARE (WRVU 4.67) performed by Kaye Gibbs MD at [facility] ENDOSCOPY Current Facility-Administered Medications Medication Dose Route Frequency Provider Last Rate Last Admin amLODIPine (Norvasc) tablet 10 mg 10 mg Oral Daily Mignon Yo MD 10 mg at 03/13/24 1012 atorvastatin (Lipitor) tablet 40 mg 40 mg Oral QPM Mignon Yo MD carvediloL (Coreg) tablet 12.5 mg 12.5 mg Oral BID WC Mignon Yo MD 12.5 mg at 03/13/24 0756 cholecalciferoL (Vitamin D3) tablet 1,000 Units 1,000 Units Oral Daily Mignon Yo MD 1,000 Units at 03/13/24 1012 pantoprazole EC (Protonix) tablet 40 mg 40 mg Oral Daily Mignon Yo MD 40 mg at 03/13/24 1012 pregabalin (Lyrica) capsule 100 mg 100 mg Oral BID Mignon Yo MD 100 mg at 03/13/24 1012 sevelamer carbonate (Renvela) tablet 1,600 mg 1,600 mg Oral TID Mignon Yo MD 1,600 mg at 03/13/24 1012 sodium chloride 0.9 % (flush) (BD PosiFlush Normal Saline 0.9) flush 5 mL 5 mL Intravenous BID Mignon Yo MD 5 mL at 03/13/24 1020 sodium chloride 0.9 % (flush) (BD PosiFlush Normal Saline 0.9) flush 5-20 mL 5- 20 mL Intravenous Q1Min PRN Mignon Yo MD lidocaine (Xylocaine) 1% (10 mg/mL) injection 3 mg 0.3 mL Subcutaneous Once PRN Mignon Yo MD melatonin tablet 3 mg 3 mg Oral Nightly PRN Mignon Yo MD heparin (porcine) (5,000 units/1 mL) subcutaneous injection 5,000 Units 5,000 Units Subcutaneous Q8H Mignon Jacobs MD 5,000 Units at 03/13/24 1328 [START ON 03/14/2024] remdesivir (Veklury) 100 mg in sodium chloride 0.9% 250 mL infusion 100 mg Intravenous Q24H Mignon Yo MD glucose (Glutose) 40% oral geL 15-30 g of glucose Buccal Q15 Min PRN Mignon Yo MD Or dextrose 10% infusion 250 mL Intravenous Q15 Min PRN Mignon Yo MD Or glucagon (Glucagen) (1 mg/mL) injection solution 1 mg 1 mg Intramuscular Q15 Min PRN Mignon Yo MD insulin lispro (HumaLOG;Admelog) (100 unit/mL) subcutaneous injection vial 1-6 Units 1-6 Units Subcutaneous Q4H Mignon Jacobs MD 6 Units at 03/13/24 0749 insulin lispro (HumaLOG;Admelog) (100 unit/mL) subcutaneous injection vial 0-8 Units 0-8 Units Subcutaneous TID Mignon Yo MD 3 Units at 03/13/24 1328 insulin glargine-ygfn (Semglee) (100 unit/mL) subcutaneous injection vial 10 Units 10 Units Subcutaneous Daily Mignon Yo MD 10 Units at 03/13/24 1018 aspirin chewable tablet 81 mg 81 mg Oral Daily Mignon Yo MD 81 mg at 03/13/24 1012 dilTIAZem CD (Cardizem CD) capsule 120 mg 120 mg Oral Daily Mignon Yo MD 120 mg at 012 heparin (porcine) (1,000 units/mL) injection 1,000-10,000 Units 1,000-10,000 Units Intercatheter Once in dialysis PRN Radha Robles MD sodium chloride 0.9% infusion 100 mL Intravenous Q15 Min PRN Radha Robles MD Allergies Allergen Reactions Clindamycin Swelling. Gabapentin swelling Zoloft [Sertraline] Other reaction(s): Unsure Family History Problem Relation Age of Onset Diabetes Mother Cancer Father Diabetes Paternal Grandmother Heart Disease Paternal Grandfather Social History Socioeconomic History Marital status: Spouse [...] Resource Strain: Not on file Food Insecurity: Not on file Transportation Needs: No Transportation Needs (02/20/2024) PRAPARE - Transportation Lack of Transportation (Medical): No Lack of Transportation (Non-Medical): No Physical Activity: Not on file Intimate Partner Violence: Not At Risk (02/19/2024) IPV Inpatient Questions Prevent Contact with Others: no Feels Threatened by Someone: no Feels Unsafe at Home: no Physical Signs of Abuse Present: no Housing Stability: Low Risk (02/20/2024) Housing Stability Vital Sign Unable to Pay for Housing in the Last Year: No Number of Places Lived in the Last Year: 1 Unstable Housing in the Last Year: No ROS: The 10 point ROS is pertinently negative except the positives mentioned above. PE: Vitals Last value Range last 24 hrs Temperature Temp: 37.2 ??C (99 ??F) Temp: [36.7 ??C (98 ??F)-37.2 ??C (99 ??F)] Heart Rate Heart Rate: 69 Heart Rate: [68-77] Blood Pressure BP: 167/72 BP: (148-179)/(69-80) Art Line BP BP (Arterial Line): -- MAP (NBP): [81 mmHg-108 mmHg] Respiratory Rate Resp: 14 Resp: [13-21] SpO2 SpO2: 96 % SpO2: [92 %-100 %] Admit Weight 88.1 kg Hemodynamically stable, Not on pressors. General - Ill appearing . Appears stated age. HEENT - No icterus or conjunctival injection. Moist mucous membranes. No oropharyngeal lesions or exudates. Neck - Supple. No lymphadenopathy. Respiratory - B/L air entry is decreased. Cardiovascular - S1 and S2 are present. Regular rate and rhythm. Abdomen - Bowel sounds present. Soft, nontender. No ascites. Extremities - LLE BKA. RLE - no edema. Musculoskeletal - No joint tenderness or swelling. Skin/Integument - No rashes, ecchymoses, or petechiae. Psychiatric - Appropriate mood and affect. Neurological - No focal deficits. LABS: Recent Labs 03/13/24 0330 WBC 8.9 HGB 8.6* HCT 26.3* PLATELET 402* Recent Labs 03/13/24 1255 03/13/24 0603/13/24 0330 NA -- 139 138 K 5.7* 5.8* Not Perf CL -- 98 99 CO2 -- 26 25 BUN -- 67* 67* CREATININE -- 7.39* 7.22* Recent Labs 03/13/24 0603/13/24 033 CALCIUM 10.0 9.7 MAGNESIUM -- 0.82 PHOS 6.3* Not Perf Recent Labs 03/13/24 0330 PT 11.7 PTT 32 Recent Labs 03/13/24 0330 INR 1.0 Recent Labs 03/13/24 0633 03/13/24 0330 AST 15 12 ALT 22 19 ALKPHOS 181* 165* BILITOT <0.2* <0.2* BILIDIR -- 0.1 No results for input(s): CK, TROPONINT in the last 168 hours. No results for input(s): LDH, URICACID in the last 168 hours. No results for input(s): TSH in the last 7068 hours. Recent Labs 03/13/24 0330 HA1C 8.4* Lab Results Component Value Date CHLPL 269 03/07/2019 HDL 46 03/07/2019 CHOLHDL 5.8 03/07/2019 TRIG 323 03/07/2019 LDLDIRECT 64 05/04/2019 Imaging/Diagnostics: Results for orders placed or performed during the hospital encounter of 03/13/[address] Read CT Chest (Exam End: 03/13/2024 5:05 AM) Result Value WORKSTATION ID [id number] Impression 1. Multifocal nodular groundglass densities in both lungs suggestive of an infectious process 2. Interstitial edema, small pleural effusions and anasarca Thank you for letting us participate in the care of this patient. If you are a health care provider and have any questions regarding this report, please contact the number below. For patients who have questions please contact the health care coordinator that requested your imaging first. Assessment and Recommendations: A 58 year old male with PMHx ESRD on iHD MWF at [place], [place], DM-2, HTN, small- vessel TIA (2019), and a recent admission to vascular surgery for left gangrenous calcaneal and lateral foot ulcers s/p aguillotine amputation who presents in transfer from [facility] ED for symptomatic COVID-19 seen and examined on hemodialysis. - ESRD on HD - Undergoing HD at present. Stable run. No acute events reported. Under COVID-19 precautions during dialysis. - Hemoglobin is 8.6 g/dL. Patient follows up with [facility] dialysis center. He may be discharged tomorrow or day after and will follow up with his home dialysis center. - Potassium is 5.8 mmol/L. He is being dialysed on 2K bath and should improve. - Sodium, bicarbonate are in the normal range. - Phosphorus is 6.3 mg/dL. Please order a phosphorus for tomorrow for monitoring. - HTN - Not well controlled. It should improve after the dialysis. Continue home medicines. Dialysis service will continue to follow patient. Recommendations are above, please page if further consultation required. Time spent discussing and doing the in-patient consult - 80 minutes. Radha Robles [facility]ph[facility] #[id number] * Plan of Care - Bernie Alfaro RN - 03/13/2024 2:02 AM EDT OUTCOME EVALUATION NOTE: OUTCOME SUMMARY: Patient actively following plan of care at this time. PLAN MOVING FORWARD: Vitals WNL Alert and Oriented x4 6L NC Covid Positive NSR on Telemetry L BKA Renal Patient (M,W,F) Dialysis DM Bilateral Pneumonia Cefepime/Vancomycin ABX therapy INDIVIDUALIZED FALL PREVENTION INTERVENTIONS: Patient-specific fall risk factors per assessment: [current deficits]: Advance age. L BKA. Covid positive. 6L NC. Renal patient. Assistance [level of assistance required for transfers and ambulation]: Patient is on bedrest at this time. L BKA. Bed alarm is on. Bed low and locked position. Call light within reach. No s/s of distress at this time. Will continue to monitor patient closely for decompensation. Supervision [direct monitoring required during toileting and ADLs]: Hourly rounding implemented. Surveillance [continuous indirect monitoring]: Room near nurses station. Patient-specific fall prevention interventions for sensory deficits provided, if applicable: [X] N/A CARE PLAN GOAL OUTCOME EVALUATION: Vitals WNL Alert and Oriented x4 6L NC Covid Positive NSR on Telemetry L BKA Renal Patient (M,W,F) Dialysis DM Bilateral Pneumonia Cefepime/Vancomycin ABX therapy documented in this encounter Plan of Treatment Scheduled Referrals Name Type Priority Associated Diagnoses Orde r Schedule Referral to Home Health Outpatient Referral Routine Status post below knee amputation, left Ordered: 03/14/2024 documented as of this encounter Procedures Procedure Name Priority Date/Time Associated Diagnosis Comments POCT GLUCOSE Routine 03/14/2024 11:31 AM EDT POCT GLUCOSE Routine 03/14/2024 6:56 AM EDT HEMOGRAM Routine 03/14/2024 3:49 AM EDT DIFFERENTIAL, AUTOMATED Routine 03/14/20 3:49 AM EDT CBC (WITH DIFF) Routine 03/14/2024 3:49 AM EDT PHOSPHORUS Routine 03/14/2024 3:49 AM EDT COMPREHENSIVE METABOLIC PANEL Routine 03/14/2024 3:49 AM EDT POCT GLUCOSE Routine 03/14/2024 3:30 AM EDT POCT GLUCOSE Routine 03/14/2024 1:17 AM EDT POCT GLUCOSE Routine 03/13/2024 11:07 PM EDT POCT GLUCOSE Routine 03/13/2024 8:16 PM EDT POCT GLUCOSE Routine 03/13/2024 5:33 PM EDT POTASSIUM Routine 03/13/2024 12:55 PM EDT POCT GLUCOSE Routine 03/13/2024 12:20 PM EDT POCT GLUCOSE Routine 03/13/2024 10:15 AM EDT POCT GLUCOSE Routine 03/13/2024 6:50 AM EDT PHOSPHORUS STAT 03/13/2024 6:33 AM EDT COMPREHENSIVE METABOLIC PANEL STAT 03/13/2024 6:33 AM EDT LACTATE, WHOLE BLOOD STAT 03/13/2024 5:14 AM EDT REQUEST FOR 2ND READ CT CHEST Routine 03/13/2024 5:05 AM EDT POCT GLUCOSE Routine 03/13/2024 3:36 AM EDT CRP, ACUTE INFLAMMATION Routine 03/13/20 3:30 AM EDT HEMOGRAM Routine 03/13/2024 3:30 AM EDT DIFFERENTIAL, AUTOMATED Routine 03/13/20 3:30 AM EDT HC PARTIAL THROMBOPLASTIN TIME Routine 03/13/2024 3:30 AM EDT SEDIMENTATION RATE Routine 03/13/2024 3: 30 AM EDT PROTHROMBIN TIME Routine 03/13/2024 3:30 AM EDT CBC (WITH DIFF) Routine 03/13/2024 3:30 AM EDT PHOSPHORUS Routine 03/13/2024 3:30 AM EDT MAGNESIUM Routine 03/13/2024 3:30 AM EDT HEMOGLOBIN A1C Routine 03/13/2024 3:30 AM EDT HEPATIC FUNCTION PANEL Routine 3:30 AM EDT BASIC METABOLIC PANEL Routine 03/13/2024 3:30 AM EDT POCT GLUCOSE Routine 03/13/2024 1:02 AM EDT FILM LIBRARY STORAGE ONLY CT CHEST Routine 03/12/2024 12:05 AM EDT FILM LIBRARY STORAGE ONLY DX CHEST Routine 03/12/2024 12:00 AM EDT documented in this encounter Results * POCT Glucose (03/14/2024 11:31 AM EDT) Glucose, POC 126 65 - 199 mg/dL [facility] Comment: Supplemental ranges: <140 mg/dL before meals <180 mg/dL all other times of the day Blood 03/14/2024 11:3 1 AM EDT 03/14/2024 11:31 AM EDT Connie Ibarra DO POINT OF CARE TEST O RDERABLES Performing Organization Address City/[facility] Co de Phone Number [facility] [place] [address] * POCT Glucose (03/14/2024 6:56 AM EDT) [facility] Signature Glucose, POC 117 65 - 199 mg/dL [facility] Comment: Supplemental ranges: <140 mg/dL before meals <180 mg/dL all other times of the day Blood 03/14/2024 6:56 AM EDT 03/14/2024 6:56 AM EDT Connie Ibarra DO POINT OF CARE TEST O RDERABLES Performing Organization Address [facility] Co de Phone Number [facility] [place] [address] * (ABNORMAL) Phosphorus (03/14/2024 3:49 AM EDT) [facility] Phosphorus 5.6(H) 2.5 - 4.5 mg/dL [facility] Blood Venous Draw / Unknown 03/14/2024 3:49 AM EDT 03/14/2024 3:52 AM EDT Narrative Resulting Agency Comment Spec In Lab Radha Robles MD CHEMISTRY ORDERABLES Performing Organization Address City/[facility] Co de Phone Number [facility] [place] [address] * (ABNORMAL) Differential, Automated (03/14/2024 3:49 AM EDT) [facility] Signature Neutrophil % 53.5 % [facility] Neutrophil Absolute 5.01 1.70 - 6.10 x10(3)/ L [facility] Lymph % 31.6 % [facility] Lymphocytes Abs 3.0 0.9 - 3.2 x10(3)/ L [facility] Monocyte % 8.7 % [facility] Monocyte Abs 0.8 0.3 - 0.9 x10(3)/[facility] Eos % 5.4 % [facility] Eosinophils Abs 0.5(H) 0.0 - 0.4 x10(3)/[facility] Basophil % 0.6 % [facility] Baso Absolute 0.1 0.0 - 0.1 x10(3)/[facility] Immature Gran % 0.20 % [facility] Comment: Immature granulocytes(IG's)percentage and absolute count will include metamyelocytes, myelocytes, and promyelocytes. Blood smears from CBCs yielding IG's will be scanned manually for concordance. If this scan disagrees with the automated IG or if promyelocytes are noted, a manual differential will be performed. Immature Gran Absolute 0.02 0.00 - 0.04 x10(3)/[facility] Blood 03/14/2024 3:49 AM EDT 03/14/2024 3:52 AM EDT Narrative Resulting Agency Comment Spec In Lab Mignon Yo MD HEMATOLOGY ORDERABLE S [facility] [place] [address] * (ABNORMAL) Hemogram (03/14/2024 3:49 AM EDT) White Blood Cell 9.4 4.0 - 9.5 x10(3)/[facility] Red Blood Cell 2.83(L) 4.58 - 5.54 x10(6)/[facility] Hemoglobin 8.3(L) 13.7 - 16.5 g/dL [facility] Hematocrit 26.1(L) 40.5 - 48.5 % [facility] Mean Cell Volume 92.2 82.9 - 93.1 fL [facility] Mean Cell Hemoglobin 29.3 27.5 - 32.1 pg [facility] Mean Cell Hemoglobin Concentration 31.8(L) 32.0 - 35.7 g/dL [facility] Platelet 409(H) 145 - 357 x10(3)/mc L [facility] RDW Standard Deviation 60.2(H) 36.0 - 45.0 fL [facility] RDW coefficient of variation 17.7(H) 11.4 - 13.8 % [facility] Mean Platelet Volume 10.6 7.6 - 12.9 fL [facility] NRBC% auto 0.0 % [facility] NRBC Absolute 0.000 0.000 - 0.000 x10(3)/mc L [facility] Blood 03/14/2024 3:49 AM EDT 03/14/2024 3:52 AM EDT Narrative Resulting Agency Comment Spec In Lab Mignon Yo MD HEMATOLOGY ORDERABLE S [facility] [place] [address] * (ABNORMAL) Comprehensive metabolic panel (non-fasting) (03/14/2024 3:49 AM EDT) Glucose 74 65 - 199 mg/dL [facility] Comment:Diabetes: >=200 mg/d L plus symptoms Blood Urea Nitrogen 52(H) 10 - 20 mg/dL [facility] Creatinine 5.92(H) 0.80 - 1.50 mg/dL [facility] Comment:result rechecked-HN Sodium 140 135 - 145 mmol/L [facility] Potassium 4.8 3.5 - 5.0 mmol/L [facility] Comment: Please note: ??Patients with WBC >100,000 may have falsely elevated Potassium levels. ??For accurate Potassium quantification in these patients send serum separator tube (gold top) for subsequent determinations. ??Contact the Clinical Chemistry Laboratory if there are any questions. Chloride 100 98 - 107 mmol/L [facility] Carbon Dioxide 27 22 - 31 mmol/L [facility] Anion Gap 13 5 - 15 mmol/L [facility] Calcium 9.2 8.5 - 10.5 mg/dL [facility] Protein, Total 5.4(L) 6.1 - 8.0 g/dL [facility] Albumin 3.0(L) 3.2 - 5.2 g/dL [facility] Aspartate Aminotransferase 14 0 - 39 unit/L [facility] Alanine Aminotransferase 17 0 - 55 unit/L [facility] Alkaline Phosphatase 139(H) 40 - 130 unit/L [facility] Bilirubin, Total <0.2(L) 0.2 - 1.3 mg/dL [facility] Est Glomerular Filtration Rate 10(L) >=60 mL/min/1. 73 m?? [facility] Comment: This patient's estimated GFR [...] and symptoms in addition to eGFR. Blood 03/14/2024 3:49 AM EDT 03/14/2024 3:52 AM EDT Narrative Resulting Agency Comment Spec In Lab Cristian Malloy MD CHEMISTRY ORDERABLES [facility] [place] [address] * POCT Glucose (03/14/2024 3:30 AM EDT) Glucose, POC 83 65 - 199 mg/dL [facility] Comment: Supplemental ranges: <140 mg/dL before meals <180 mg/dL all other times of the day Blood 03/14/2024 3:30 AM EDT 03/14/2024 3:30 AM EDT Connie Ibarra DO POINT OF CARE TEST O RDERABLES Performing Organization Address [facility] de Phone Number [facility] [place] [address] * (ABNORMAL) POCT Glucose (03/14/2024 1:17 AM EDT) Glucose, POC 62(L) 65 - 199 mg/dL [facility] Comment: Supplemental ranges: <140 mg/dL before meals <180 mg/dL all other times of the day Blood 03/14/2024 1:17 AM EDT 03/14/2024 1:17 AM EDT Connie Ibarra DO POINT OF CARE TEST O RDERABLES Performing Organization Address [facility] de Phone Number [facility] [place] [address] * POCT Glucose (03/13/2024 11:07 PM EDT) Glucose, POC 65 65 - 199 mg/dL [facility] Comment: Supplemental ranges: <140 mg/dL before meals <180 mg/dL all other times of the day Blood 03/13/2024 11:0 7 PM EDT 03/13/2024 11:07 PM EDT Connie Ibarra DO POINT OF CARE TEST O RDERABLES Performing Organization Address City/[facility] Co de Phone Number [facility] [place] [address] * POCT Glucose (03/13/2024 8:16 PM EDT) Glucose, POC 163 65 - 199 mg/dL [facility] Comment: Supplemental ranges: <140 mg/dL before meals <180 mg/dL all other times of the day Blood 03/13/2024 8:16 PM EDT 03/13/2024 8:16 PM EDT Connie Ibarra DO POINT OF CARE TEST O RDERABLES Performing Organization Address [facility]/ZIP Co de Phone Number [facility] [place] [address] * POCT Glucose (03/13/2024 5:33 PM EDT) Glucose, POC 136 65 - 199 mg/dL [facility] Comment: Supplemental ranges: <140 mg/dL before meals <180 mg/dL all other times of the day Blood 03/13/2024 5:33 PM EDT 03/13/2024 5:33 PM EDT Connie Ibarra DO POINT OF CARE TEST O RDERABLES Performing Organization Address [facility]/ZIP Co de Phone Number [facility] [place] [address] * (ABNORMAL) Potassium (03/13/2024 12:55 PM EDT) Potassium 5.7(H) 3.5 - 5.0 mmol/L [facility] Comment: Please note: ??Patients with WBC >100,000 may have falsely elevated Potassium levels. ??For accurate Potassium quantification in these patients send serum separator tube (gold top) for subsequent determinations. ??Contact the Clinical Chemistry Laboratory if there are any questions. Blood 03/13/2024 12:5 5 PM EDT 03/13/2024 1:45 PM EDT Narrative Resulting Agency Comment Spec In Lab Connie Ibarra CHEMISTRY ORDERABLES Performing Organization Address City/[facility]/ZIP Co de Phone Number [facility] [place] [address] * POCT Glucose (03/13/2024 12:20 PM EDT) Glucose, POC 120 65 - 199 mg/dL [facility] Comment: Supplemental ranges: <140 mg/dL before meals <180 mg/dL all other times of the day Blood 03/13/2024 12:2 0 PM EDT 03/13/2024 12:20 PM EDT Connie Ibarra POINT OF CARE TEST O RDERABLES Performing Organization Address City/[facility]/ZIP Co de Phone Number [facility] [place] [address] * POCT Glucose (03/13/2024 10:15 AM EDT) Glucose, POC 166 65 - 199 mg/dL [facility] Comment: Supplemental ranges: <140 mg/dL before meals <180 mg/dL all other times of the day Blood 03/13/2024 10:1 5 AM EDT 03/13/2024 10:15 AM EDT Connie Ibarra POINT OF CARE TEST O RDERABLES Performing Organization Address City/[facility]/ZIP Co de Phone Number [facility] [place] [address] * (ABNORMAL) POCT Glucose (03/13/2024 6:50 AM EDT) Glucose, POC 269(H) 65 - 199 mg/dL [facility] Comment: Supplemental ranges: <140 mg/dL before meals <180 mg/dL all other times of the day Blood 03/13/2024 6:50 AM EDT 03/13/2024 6:50 AM EDT Rhea Long MD POINT OF CARE TEST O RDERABLES [facility] [place] [place] [address] * (ABNORMAL) Phosphorus (03/13/2024 6:33 AM EDT) Phosphorus 6.3(H) 2.5 - 4.5 mg/dL [facility] Blood 03/13/2024 6:33 AM EDT 03/13/2024 6:45 AM EDT Narrative Resulting Agency Comment Spec In Lab Cristian Malloy MD CHEMISTRY ORDERABLES Performing Organization Address [facility]/ZIP Co de Phone Number [facility] [place] [address] * (ABNORMAL) Comprehensive metabolic panel (non-fasting) (03/13/2024 6:33 AM EDT) Glucose 133 65 - 199 mg/dL [facility] Comment:Diabetes: >=200 mg/d L plus symptoms Blood Urea Nitrogen 67(H) 10 - 20 mg/dL [facility] Creatinine 7.39(H) 0.80 - 1.50 mg/dL [facility] Sodium 139 135 - 145 mmol/L [facility] Potassium 5.8(H) 3.5 - 5.0 mmol/L [facility] Comment: Please note: ??Patients with WBC >100,000 may have falsely elevated Potassium levels. ??For accurate Potassium quantification in these patients send serum separator tube (gold top) for subsequent determinations. ??Contact the Clinical Chemistry Laboratory if there are any questions. Chloride 98 98 - 107 mmol/L [facility] Carbon Dioxide 26 22 - 31 mmol/L [facility] Anion Gap 15 5 - 15 mmol/L [facility] Calcium 10.0 8.5 - 10.5 mg/dL [facility] Protein, Total 6.4 6.1 - 8.0 g/dL [facility] Albumin 3.3 3.2 - 5.2 g/dL [facility] Aspartate Aminotransferase 15 0 - 39 unit/L [facility] Alanine Aminotransferase 22 0 - 55 unit/L [facility] Alkaline Phosphatase 181(H) 40 - 130 unit/L [facility] Bilirubin, Total <0.2(L) 0.2 - 1.3 mg/dL [facility] Est Glomerular Filtration Rate 8(L) >=60 mL/min/1. 73 m?? [facility] Comment: This patient's estimated GFR [...] and symptoms in addition to eGFR. Blood 03/13/2024 6:33 AM EDT 03/13/2024 6:45 AM EDT Narrative Resulting Agency Comment Spec In Lab Cristian Malloy MD CHEMISTRY ORDERABLES Performing Organization Address City/[facility]/ZIP Co de Phone Number [facility] [place] [address] * Lactate, whole blood, send to lab ([facility] (03/13/2024 5:14 AM EDT) Lactate WB 1.4 0.5 - 2.2 mmol/L [facility] Blood 03/13/2024 5:14 AM EDT 03/13/2024 5:22 AM EDT Narrative Resulting Agency Comment Spec In Lab Cristian Malloy MD CHEMISTRY ORDERABLES [facility] [place] [address] * Request For 2nd Read CT Chest (03/13/2024 5:05 AM EDT) WORKSTATION ID [id number] RAD Anatomical Region Laterality Modality Chest SO Impressions 03/13/2024 8:32 AM EDT 1. ??Multifocal nodular groundglass densities in both lungs suggestive of an infectious process 2. ??Interstitial edema, small pleural effusions and anasarca Thank you for letting us participate in the care of this patient. ??If you are a health care provider and have any questions regarding this report, please contact the number below. ??For patients who have questions please contact the health care coordinator that requested your imaging first. ? Narrative 03/13/2024 8:32 AM EDT EXAMINATION: REQUEST FOR 2ND READ CT CHEST CLINICAL HISTORY: 58 y/o with ESRD w/ fever and infectious symptoms CT scan w/ bilatreal infiltrates; Sending Institution [facility]; Date of exam [id number]; I believe a reinterpretation of this exam may alter care of Patient. Yes TECHNIQUE: Reinterpretation outside noncontrast chest CT scan. Sagittal and coronal multiplanar reformations were submitted. COMPARISON: None FINDINGS: Lungs/airways/pleura: The study is degraded by respiratory motion. ??There are multifocal groundglass nodular opacities in both lungs. There is septal thickening. No endobronchial nodule. There are small right greater than left pleural effusions. Mediastinum/lymph nodes: No thoracic lymphadenopathy. Cardiovascular: The heart is enlarged. Hyperdense interventricular septum is suggestive of anemia. There is mild coronary artery calcification. Upper abdomen: Cholecystectomy has been performed. Bones and soft tissues: There are healing displaced left eighth and ninth rib fractures with associated mild callus formation. There is anasarca. Procedure Note Ismael Baker MD - 03/13/2024 EXAMINATION: REQUEST FOR 2ND READ CT CHEST CLINICAL HISTORY: 58 y/o with ESRD w/ fever and infectious symptoms CTscan w/ bilatreal infiltrates; Sending Institution [facility]; Date of exam [id number];I believe a reinterpretation of this exam may alter care of Patient. Yes TECHNIQUE: Reinterpretation outside noncontrast chest CT scan. Sagittal and coronal multiplanar reformations were submitted. COMPARISON: None FINDINGS: Lungs/airways/pleura: The study is degraded by respiratory motion. Thereare multifocal groundglass nodular opacities in both lungs. There is septal thickening. No endobronchial nodule. There are small right greater thanleft pleural effusions. Mediastinum/lymph nodes: No thoracic lymphadenopathy. Cardiovascular: The heart is enlarged. Hyperdense interventricular septumis suggestive of anemia. There is mild coronary artery calcification. Upper abdomen: Cholecystectomy has been performed. Bones and soft tissues: There are healing displaced left eighth and ninthrib fractures with associated mild callus formation. There is anasarca. IMPRESSION 1. Multifocal nodular groundglass densities in both lungs suggestive ofan infectious process 2. Interstitial edema, small pleural effusions and anasarca Thank you for letting us participate in the care of this patient. If youare a health care provider and have any questions regarding this report,please contact the number below. For patients who have questions please contactthe health care coordinator that requested your imaging first. Electronically signed by: Ismael Baker MD, [facility]([phone]), at 03/13/2024 8:32 AM Cristian Malloy MD IMG OUTSIDE INTERPRE TATION ORDERABLES * POCT Glucose (03/13/2024 3:36 AM EDT) Glucose, POC 132 65 - 199 mg/dL [facility] Comment: Supplemental ranges: <140 mg/dL before meals <180 mg/dL all other times of the day Blood 03/13/2024 3:36 AM EDT 03/13/2024 3:36 AM EDT Cristian Malloy MD POINT OF CARE TEST O RDERABLES [facility] [place] [address] * (ABNORMAL) Differential, Automated (03/13/2024 3:30 AM EDT) Neutrophil % 87.3 % [facility] Neutrophil Absolute 7.78(H) 1.70 - 6.10 x10(3)/mc L [facility] Lymph % 8.9 % [facility] Lymphocytes Abs 0.8(L) 0.9 - 3.2 x10(3)/mc L [facility] Monocyte % 2.5 % [facility] Monocyte Abs 0.2(L) 0.3 - 0.9 x10(3)/mc L [facility] Eos % 0.0 % [facility] Eosinophils Abs 0.0 0.0 - 0.4 x10(3)/[facility] Basophil % 0.6 % [facility] Baso Absolute 0.0 0.0 - 0.1 x10(3)/ L [facility] Immature Gran % 0.70 % [facility] Comment: Immature granulocytes(IG's)percentage and absolute count will include metamyelocytes, myelocytes, and promyelocytes. Blood smears from CBCs yielding IG's will be scanned manually for concordance. If this scan disagrees with the automated IG or if promyelocytes are noted, a manual differential will be performed. Immature Gran Absolute 0.06(H) 0.00 - 0.04 x10(3)/mc L [facility] Blood 03/13/2024 3:30 AM EDT 03/13/2024 4:46 AM EDT Narrative Resulting Agency Comment Spec In Lab Mignon Yo MD HEMATOLOGY ORDERABLE S [facility] [place] [address] * (ABNORMAL) Hemogram (03/13/2024 3:30 AM EDT) White Blood Cell 8.9 4.0 - 9.5 x10(3)/mc L [facility] Red Blood Cell 2.85(L) 4.58 - 5.54 x10(6)/mc L [facility] Hemoglobin 8.6(L) 13.7 - 16.5 g/dL [facility] Hematocrit 26.3(L) 40.5 - 48.5 % [facility] Mean Cell Volume 92.3 82.9 - 93.1 fL [facility] Mean Cell Hemoglobin 30.2 27.5 - 32.1 pg [facility] Mean Cell Hemoglobin Concentration 32.7 32.0 - 35.7 g/dL [facility] Platelet 402(H) 145 - 357 x10(3)/mc L [facility] RDW Standard Deviation 58.7(H) 36.0 - 45.0 [facility] RDW coefficient of variation 17.3(H) 11.4 - 13.8 % [facility] Mean Platelet Volume 11.1 7.6 - 12.9 [facility] NRBC% auto 0.0 % [facility] NRBC Absolute 0.000 0.000 - 0.000 x10(3)/mc L [facility] Blood 03/13/2024 3:30 AM EDT 03/13/2024 4:46 AM EDT Narrative Resulting Agency Comment Spec In Lab Mignon Yo MD HEMATOLOGY ORDERABLE S [facility] [place] [address] * (ABNORMAL) Hemoglobin A1c (03/13/2024 3:30 AM EDT) Pathologist [facility] Hemoglobin A1c 8.4(H) 4.3 - 5.6 % [facility] Comment: Reference Range: 4.3 - [...] Mellitus, Diabetes Care 2013; 36: Suppl. 1, S67-74 Estimated Average Glucose 193 mg/dL [facility] Blood 03/13/2024 3:30 AM EDT 03/13/2024 4:48 AM EDT Narrative Resulting Agency Comment Spec In Lab Cristian Malloy MD CHEMISTRY ORDERABLES [facility] [place] [address] * (ABNORMAL) CRP, acute inflammation (03/13/2024 3:30 AM EDT) [facility] C-Reactive Protein 77.3(H) <=4.9 mg/L [facility] Blood 03/13/2024 3:30 AM EDT 03/13/2024 4:46 AM EDT Narrative Resulting Agency Comment Spec In Lab Cristian Malloy MD CHEMISTRY ORDERABLES [facility] [place] [place] [address] * (ABNORMAL) Sedimentation rate (03/13/2024 3:30 AM EDT) [facility] Sedimentation Rate Automated >119(H) 2 - 37 mm/hr [facility] Comment: Effective October 04, 2019 new capillary photometric technology has resulted in a change in reference ranges. It is recommended that each ESR result be reviewed with its own age appropriate reference range. Blood 03/13/2024 3:30 AM EDT 03/13/2024 4:46 AM EDT Narrative Resulting Agency Comment Spec In Lab Cristian Malloy MD HEMATOLOGY ORDERABLE S Performing Organization Address [facility] de Phone Number [facility] [place] [address] * APTT (03/13/2024 3:30 AM EDT) Partial Thromboplastin Time 32 25 - 37 sec [facility] Comment: The PTT is NOT appropriate for heparin monitoring. Use the Anti-Xa level for heparin monitoring (HEP UFH) or LMWH monitoring (HEP LMW). A PTT less than 37 seconds generally indicates adequate hemostasis. Blood 03/13/2024 3:30 AM EDT 03/13/2024 4:46 AM EDT Narrative Resulting Agency Comment Spec In Lab Cristian Malloy MD HEMATOLOGY ORDERABLE S Performing Organization Address [facility] de Phone Number [facility] [place] [address] * Prothrombin Time (03/13/2024 3:30 AM EDT) Prothrombin Time 11.7 9.4 - 12.5 sec [facility] International Normalization Ratio 1.0 [facility] Comment: An INR <2.0 indicates adequate procoagulant activity for hemostasis in most patients without underlying bleeding disorders, though the INR may not adequately reflect hemostatic capacity in patients with liver disease and synthetic impairment. The recommended target INR range for therapeutic anticoagulation is 2.0 ? 3.0 for most applications, though lower and higher ranges may be appropriate depending on clinical circumstances. Blood 03/13/2024 3:30 AM EDT 03/13/2024 4:46 AM EDT Narrative Resulting Agency Comment Spec In Lab Cristian Malloy MD HEMATOLOGY ORDERABLE S Performing Organization Address City/[facility]/ZIP Co de Phone Number [facility] [place] [address] * (ABNORMAL) Hepatic Function Panel (03/13/2024 3:30 AM EDT) [facility] Protein, Total 5.9(L) 6.1 - 8.0 g/dL [facility] Albumin 3.1(L) 3.2 - 5.2 g/dL [facility] Aspartate Aminotransferase 12 0 - 39 unit/L [facility] Alanine Aminotransferase 19 0 - 55 unit/L [facility] Alkaline Phosphatase 165(H) 40 - 130 unit/L [facility] Bilirubin, Total <0.2(L) 0.2 - 1.3 mg/dL [facility] Bilirubin, Direct 0.1 0.0 - 0.3 mg/dL [facility] Blood 03/13/2024 3:30 AM EDT 03/13/2024 4:46 AM EDT Narrative Resulting Agency Comment Spec In Lab Cristian Malloy MD CHEMISTRY ORDERABLES Performing Organization Address [facility] de Phone Number [facility] [place] [address] * Phosphorus (03/13/2024 3:30 AM EDT) [facility] Phosphorus Not Perf 2.5 - 4.5 [facility] Comment: Sample improperly processed prior to receipt. Called by: amadou, Read back by: kathryn quach, Date/Time:03/13/24 05:19. Blood 03/13/2024 3:30 AM EDT 03/13/2024 4:46 AM EDT Narrative Resulting Agency Comment Spec In Lab Cristian Malloy MD CHEMISTRY ORDERABLES Performing Organization Address City/[facility]/ZIP Co de Phone Number [facility] [place] [address] * Magnesium (03/13/2024 3:30 AM EDT) Magnesium 0.82 0.69 - 1.07 mmol/L [facility] Blood 03/13/2024 3:30 AM EDT 03/13/2024 4:46 AM EDT Narrative Resulting Agency Comment Spec In Lab Cristian Malloy MD CHEMISTRY ORDERABLES [facility] [place] [address] * (ABNORMAL) Basic Metabolic Panel (non-fasting) (03/13/2024 3:30 AM EDT) Glucose Not Perf 65 - 199 [facility] Comment: Sample improperly processed prior to receipt. Called by: amadou, Read back by: kathryn quach, Date/Time:03/13/24 05:19. Diabetes: >=200 mg/dL plus symptoms Blood Urea Nitrogen 67(H) 10 - 20 mg/dL [facility] Creatinine 7.22(H) 0.80 - 1.50 mg/dL [facility] Sodium 138 135 - 145 mmol/L [facility] Potassium Not Perf 3.5 - 5.0 [facility] Comment: Sample improperly processed prior to receipt. Called by: amadou, Read back by: kathryn quach, Date/Time:03/13/24 05:19. Please note: ??Patients with WBC >100,000 may have falsely elevated Potassium levels. ??For accurate Potassium quantification in these patients send serum separator tube (gold top) for subsequent determinations. ??Contact the Clinical Chemistry Laboratory if there are any questions. Chloride 99 98 - 107 mmol/L [facility] Carbon Dioxide 25 22 - 31 mmol/L [facility] Anion Gap 14 5 - 15 mmol/L [facility] Calcium 9.7 8.5 - 10.5 mg/dL [facility] Est Glomerular Filtration Rate 8(L) >=60 mL/min/1. 73 m?? [facility] Comment: This patient's estimated GFR [...] and symptoms in addition to eGFR. Blood 03/13/2024 3:30 AM EDT 03/13/2024 4:46 AM EDT Narrative Resulting Agency Comment Spec In Lab Cristian Malloy MD CHEMISTRY ORDERABLES Performing Organization Address [facility] Co de Phone Number [facility] [place] [address] * POCT Glucose (03/13/2024 1:02 AM EDT) [facility] Glucose, POC 174 65 - 199 mg/dL [facility] Comment: Supplemental ranges: <140 mg/dL before meals <180 mg/dL all other times of the day Blood 03/13/2024 1:02 AM EDT 03/13/2024 1:02 AM EDT Cristian Malloy MD POINT OF CARE TEST O RDERABLES Performing Organization Address [facility] Co de Phone Number [facility] [place] [address] * Film Library- Storage Only CT Chest (03/12/2024 12:05 AM EDT) Narrative [facility] - 03/13/2024 5:01 AM EDT This exam is auto-finalizing. It's purpose is for storage only. Cristian Malloy MD IMG FILM LIBRARY ORD ERABLES Performing Organization Address [facility] [facility] Co de Phone Number [place], [place] * Film Library- Storage Only DX Chest (03/12/2024 12:00 AM EDT) Narrative Dicom, Auditing User - 03/13/2024 5:01 AM EDT This exam is auto-finalizing. It's purpose is for storage only. Cristian Malloy MD [facility] [place] [place] FILM LIBRARY ORD ERABLES documented in this encounter Visit Diagnoses Diagnosis Acute hypoxic respiratory failure- Primary Status post below knee amputation, left Acute hypoxic respiratory failure CKD (chronic kidney disease) stage 4, GFR 15-29 ml/min Chronic kidney disease, Stage IV (severe) ESRD (end stage renal disease) End stage renal disease CKD (chronic kidney disease) stage 3, GFR 30-59 ml/min Chronic kidney disease, Stage III (moderate) Other specified diabetes mellitus with unspecified complications Essential hypertension with goal blood pressure less than 130/80 Hyperkalemia Hyperpotassemia documented in this encounter Admitting Diagnoses Diagnosis Acute hypoxic respiratory failure documented in this encounter Administered Medications Inactive Administered Medications - up to 3 most recent administrations Medication Order MAR Action Action Date Dose Rate Site acetaminophen (Tylenol) tablet 975 mg 975 mg, Oral, EVERY 8 HOURS SCHEDULED, First dose on Wed03/13/24 at 2200, Until Discontinued, Maximum dose of acetaminophen is 4,000 mg from all sources in 24 hours. When ordered for pain, acetaminophen should be given even when other ordered pain medications are indicated., Routine Given 03/13/2024 9:18 PM EDT 975 mg amLODIPine (Norvasc) tablet 10 mg 10 mg, Oral, DAILY, First dose on Wed03/13/24 at 0900, Until Discontinued, Routine Given 03/14/2024 8:11 AM EDT 10 mg Given 03/13/2024 10:12 AM EDT 10 mg aspirin chewable tablet 81 mg 81 mg, Oral, DAILY, First dose on Wed03/13/24 at 0900, Until Discontinued, Routine Given 03/14/2024 8:11 AM EDT 81 mg Given 03/13/2024 10:12 AM EDT 81 mg atorvastatin (Lipitor) tablet 40 mg 40 mg, Oral, EVERY EVENING, First dose on Wed03/13/24 at 1700, Until Discontinued, Routine Given 03/13/2024 5:33 PM EDT 40 mg carvediloL (Coreg) tablet 12.5 mg 12.5 mg, Oral, 2 TIMES DAILY WITH MEALS, First dose on Wed03/13/24 at 0800, Until Discontinued, Routine Given 03/14/2024 8:11 AM EDT 12.5 mg Given 03/13/2024 5:33 PM EDT 12.5 mg Given 03/13/2024 7:56 AM EDT 12.5 mg cholecalciferoL (Vitamin D3) tablet 1,000 Units 1,000 Units, Oral, DAILY, First dose on Wed03/13/24 at 0900, Until Discontinued, 40 units is equivalent to 1 mcg of cholecalciferol., Routine Given 03/14/2024 8:11 AM EDT 1,000 Units Given 03/13/2024 10:12 AM EDT 1,000 Units dextrose 10% infusion 250 mL, at 1,000 mL/hr, Intravenous, EVERY 15 MIN PRN, Starting on Wed03/13/24 at 0235, Until Wed03/14/24 at 1648, For BG 50-70 mg/dL: Oral treatment preferred: [...] orders before administering the next dose. dilTIAZem CD (Cardizem CD) capsule 120 mg 120 mg, Oral, DAILY, First dose on Wed03/13/24 at 0900, Until Discontinued, DO NOT CRUSH OR OPEN, Routine Given 03/14/2024 8:11 AM EDT 120 mg Given 03/13/2024 10:12 AM EDT 120 mg epoetin ken-epbx (Retacrit) injection 10,000 Units 10,000 Units, Intravenous, ONCE IN DIALYSIS PRN, 1 dose, Starting on Wed03/13/24 at 1026, Until Wed03/13/24 at 1257, Other, Dialysis (Intra-Procedure), Routine, What is the indication of use? End Stage Renal Disease (ESRD) on dialysis Given 03/13/2024 12:57 PM EDT 10,000 Units glucagon (Glucagen) (1 mg/mL) injection solution 1 mg 1 mg, Intramuscular, EVERY 15 MIN PRN, Starting on Wed03/13/24 at 0235, Until Wed03/14/24 at 1648, Low blood sugar, For BG 50-70 mg/dL: [...] Buccal, EVERY 15 MIN PRN, Starting on Wed03/13/24 at 0235, Until Wed03/14/24 at 1648, Low blood sugar, For BG 50-70 mg/dL: [...] IN DIALYSIS PRN, 1 dose, Starting on Wed03/13/24 at 1026, Until Tu03/14/24 at 1648, Line Care, Per Protocol, Catheter lock use catheter specified fill volume per dialysis protocol. For use in Dialysis only. Procedure ID: [id number] (Hemodialysis CVAD Procedure - Care and Maintenance) in Clinical Policies., Dialysis (Intra-Procedure), Routine heparin (porcine) (1,000 units/mL) injection 3,000 Units 3,000 Units, Intravenous, ONCE, 1 dose, On Wed03/13/24 at 1115, For use in Dialysis only., Dialysis (Intra-Procedure), Routine Given 03/13/2024 12:57 PM EDT 3,000 Units heparin (porcine) (5,000 units/1 mL) subcutaneous injection 5,000 Units 5,000 Units, Subcutaneous, EVERY 8 HOURS SCHEDULED, First dose on Wed03/13/24 at 0600, Until Discontinued, Routine Given 03/14/2024 5:52 AM EDT 5,000 Units Given 03/13/2024 9:18 PM EDT 5,000 Units Given 03/13/2024 1:28 PM EDT 5,000 Units insulin glargine-ygfn (Semglee) (100 unit/mL) subcutaneous injection vial 10 Units 10 Units, Subcutaneous, DAILY, First dose on Wed03/13/24 at 0900, Until Discontinued, Routine Given 03/14/2024 8:13 AM EDT 10 Units Given 03/13/2024 10:18 AM EDT 10 Units insulin lispro (HumaLOG;Admelog) (100 unit/mL) subcutaneous injection vial 0-8 Units 0-8 Units, Subcutaneous, 3 TIMES DAILY WITH MEALS, First dose on Wed03/13/24 at 0800, Until Discontinued, ME[employer] Give 1 unit for every 10 grams carbohydrate. Hold if not eating or if BG less than 70 mg/dL. , Routine Given 03/13/2024 5:37 PM EDT 6 Units Given 03/13/2024 1:28 PM EDT 3 Units insulin lispro (HumaLOG;Admelog) (100 unit/mL) subcutaneous injection vial 1-6 Units 1-6 Units, Subcutaneous, EVERY 4 HOURS SCHEDULED, First dose on Wed03/13/24 at 0400, Until Discontinued, CORRECTION BOLUS [1-6 Units] Moderate Sliding Scale (BG in mg/dL): Correction factor 20 (1 unit of insulin is expected to drop the glucose 20 mg/dL) BG 140 - 160 Give 1 unit BG 161 - 180 Give 2 units BG 181 - 200 Give 3 units BG 201 - 220 Give 4 units BG 221 - 240 Give 5 units BG greater than 240, give 6 units and recheck BG in 2 hours. - If recheck BG is LESS than 240, give no insulin and resume schedule. - If recheck BG is GREATER than or EQUAL to 240, give 6 units and repeat BG in 2 hours (no more than 3 times) & call for new insulin orders. DO NOT hold if NPO, unless specifically directed to do so by written order. ?? Per Inpatient Subcutaneous Insulin Policy, recheck a BG of greater than 240 mg/dL in 2 hours., Routine Given 03/13/2024 8:00 PM EDT 1 Units Left Lower Quadrant Given 03/13/2024 7:49 AM EDT 6 Units ipratropium-albuteroL (Duoneb) 0.5 mg-3 mg(2.5 mg base)/3 mL nebulizer solution 3 mL 3 mL, Nebulization, EVERY 4 HOURS, First dose (after last modification) on Wed03/14/24 at 1200, Until Discontinued, Routine pantoprazole EC (Protonix) tablet 40 mg 40 mg, Oral, DAILY, First dose on Wed03/13/24 at 0900, Until Discontinued, DO NOT CRUSH OR OPEN, Routine Given 03/14/2024 8:11 AM EDT 40 mg Given 03/13/2024 10:12 AM EDT 40 mg pregabalin (Lyrica) capsule 100 mg 100 mg, Oral, 2 TIMES DAILY, First dose on Wed03/13/24 at 0900, Until Discontinued, Routine Given 03/14/2024 8:11 AM EDT 100 mg Given 03/13/2024 8:42 PM EDT 100 mg Given 03/13/2024 10:12 AM EDT 100 mg remdesivir (Veklury) 100 mg in sodium chloride 0.9% 250 mL infusion 100 mg, Intravenous, EVERY 24 HOURS, 2 doses, First dose on Wed03/14/24 at 0400, Last dose on Wed03/15/24 at 0400, Administer over 30 Minutes, Administer separately from other medications. After infusion complete, flush line with 30 mL of NS at rate of 200 mL/hr. New Bag 03/14/2024 3:28 AM EDT 100 mg 500 mL/hr remdesivir (Veklury) 200 mg in sodium chloride 0.9% 250 mL infusion 200 mg, Intravenous, EVERY 24 HOURS, 1 dose, First dose on Wed03/13/24 at 0400, Administer over 30 Minutes, Administer separately from other medications. After infusion complete, flush line with 30 mL of NS at rate of 200 mL/hr. New Bag 03/13/2024 4:33 AM EDT 200 mg 500 mL/hr sevelamer carbonate (Renvela) tablet 1,600 mg 1,600 mg, Oral, 3 TIMES DAILY, First dose on Wed03/13/24 at 0900, Until Discontinued Given 03/14/2024 8:11 AM EDT 1,600 mg Given 03/13/2024 8:42 PM EDT 1,600 mg Given 03/13/2024 5:33 PM EDT 1,600 mg sodium chloride 0.9 % (flush) (BD PosiFlush Normal Saline 0.9) flush 5 mL 5 mL, Intravenous, 2 TIMES DAILY, First dose on Wed03/13/24 at 0900, Until Discontinued, Routine Given 03/14/2024 8:14 AM EDT 10 mLs Given 03/13/2024 8:43 PM EDT 5 mLs Given 03/13/2024 10:20 AM EDT 5 mLs sodium chloride 0.9% infusion 100 mL, Intravenous, EVERY 15 MIN PRN, Starting on Wed03/13/24 at 1026, Until Wed03/14/24 at 1648, If administration of NS boluses will result in positive fluid balance at end of treatment, contact MD., Dialysis (Intra-Procedure) documented in this encounter Active and Recently Administered Medications Times are shown in EDT. Scheduled Medication Order 03/12/2024 03/13/2024 03/14/2024 acetaminophen (Tylenol) tablet 975 mg 975 mg, Oral, EVERY 8 HOURS SCHEDULED, First dose on Wed03/13/24 at 2200, Until Discontinued, Maximum dose of acetaminophen is 4,000 mg from all sources in 24 hours. When ordered for pain, acetaminophen should be given even when other ordered pain medications are indicated., Routine 2117 (Given - Provider: Bernie Alfaro RN) 0552 (Hold - Provider: Bernie Alfaro RN - Reason: Patient/family refused)1400 (Not Given - Provider: Sara Elizabeth RN - Reason: Patient/family refused) amLODIPine (Norvasc) tablet 10 mg 10 mg, Oral, DAILY, First dose on Wed03/13/24 at 0900, Until Discontinued, Routine 1012 (Given - Provider: Radha Ram RN) 0811 (Given - Provider: Sara Elizabeth, VIDYA) aspirin chewable tablet 81 mg 81 mg, Oral, DAILY, First dose on Wed03/13/24 at 0900, Until Discontinued, Routine 1012 (Given - Provider: Radha Ram RN) 0811 (Given - Provider: Sara Elizabeth, VIDYA) atorvastatin (Lipitor) tablet 40 mg 40 mg, Oral, EVERY EVENING, First dose on Wed03/13/24 at 1700, Until Discontinued, Routine 1733 (Given - Provider: Radha Ram RN) carvediloL (Coreg) tablet 12.5 mg 12.5 mg, Oral, 2 TIMES DAILY WITH MEALS, First dose on Wed03/13/24 at 0800, Until Discontinued, Routine 0756 (Given - Provider: Radha Ram RN)1733 (Given - Provider: Radha Ram RN) 0811 (Given - Provider: Sara Elizabeth RN) cholecalciferoL (Vitamin D3) tablet 1,000 Units 1,000 Units, Oral, DAILY, First dose on Wed03/13/24 at 0900, Until Discontinued, 40 units is equivalent to 1 mcg of cholecalciferol., Routine 1012 (Given - Provider: Radha Ram RN) 0811 (Given - Provider: Sara Elizabeth RN) dilTIAZem CD (Cardizem CD) capsule 120 mg 120 mg, Oral, DAILY, First dose on Wed03/13/24 at 0900, Until Discontinued, DO NOT CRUSH OR OPEN, Routine 1012 (Given - Provider: Radha Ram RN) 0811 (Given - Provider: Sara Elizabeth RN) heparin (porcine) (1,000 units/mL) injection 3,000 Units (COMPLETED) 3,000 Units, Intravenous, ONCE, 1 dose, On Wed03/13/24 at 1115, For use in Dialysis only., Dialysis (Intra-Procedure), Routine 1257 (Given - Provider: Nola Pimentel RN - Comment: Given during HD) heparin (porcine) (5,000 units/1 mL) subcutaneous injection 5,000 Units 5,000 Units, Subcutaneous, EVERY 8 HOURS SCHEDULED, First dose on Wed03/13/24 at 0600, Until Discontinued, Routine 0623 (Given - Provider: Bernie Alfaro RN)1328 (Given - Provider: Radha Ram RN)2118 (Given - Provider: Bernie Alfaro RN) 0552 (Given - Provider: Bernie Alfaro RN)1400 (Not Given - Provider: Sara Elizabeth RN - Reason: Patient/family refused) insulin glargine-ygfn (Semglee) (100 unit/mL) subcutaneous injection vial 10 Units 10 Units, Subcutaneous, DAILY, First dose on Wed03/13/24 at 0900, Until Discontinued, Routine 1018 (Given - Provider: Radha Ram RN) 0813 (Given - Provider: Sara Elizabeth, VIDYA) insulin lispro (HumaLOG;Admelog) (100 unit/mL) subcutaneous injection vial 0-8 Units 0-8 Units, Subcutaneous, 3 TIMES DAILY WITH MEALS, First dose on Wed03/13/24 at 0800, Until Discontinued, ME[employer] Give 1 unit for every 10 grams carbohydrate. Hold if not eating or if BG less than 70 mg/dL. , Routine 0800 (Not Given - Provider: Radha Ram RN - Reason: Contraindicated - Comment: pt didn't eat breakfast)1328 (Given - Provider: Radha Ram RN - Comment: given with meal)1737 (Given - Provider: Radha Ram RN) 0853 (Not Given - Provider: Sara Elizabeth RN - Reason: Order parameters not met)1200 (Not Given - Provider: Sara Elizabeth RN - Reason: See comment - Comment: pt not eating lunch) insulin lispro (HumaLOG;Admelog) (100 unit/mL) subcutaneous injection vial 1-6 Units(Linked Group 1) 1-6 Units, Subcutaneous, EVERY 4 HOURS SCHEDULED, First dose on Wed03/13/24 at 0400, Until Discontinued, CORRECTION BOLUS [1-6 Units] Moderate Sliding Scale (BG in mg/dL): Correction factor 20 (1 unit of insulin is expected to drop the glucose 20 mg/dL) BG 140 - 160 Give 1 unit BG 161 - 180 Give 2 units BG 181 - 200 Give 3 units BG 201 - 220 Give 4 units BG 221 - 240 Give 5 units BG greater than 240, give 6 units and recheck BG in 2 hours. - If recheck BG is LESS than 240, give no insulin and resume schedule. - If recheck BG is GREATER than or EQUAL to 240, give 6 units and repeat BG in 2 hours (no more than 3 times) & call for new insulin orders. DO NOT hold if NPO, unless specifically directed to do so by written order. ?? Per Inpatient Subcutaneous Insulin Policy, recheck a BG of greater than 240 mg/dL in 2 hours., Routine 0400 (Hold - Provider: Bernie Alfaro RN - Reason: See comment - Comment: bs [phone] (Given - Provider: Radha Ram RN)1200 (Not Given - Provider: Radha Ram RN - Reason: Order parameters not met)1600 (Not Given - Provider: Radha Ram RN - Reason: Order parameters not met)2000 (Given - Provider: Bernie Alfaro RN) 0000 (Hold - Provider: Bernie Alfaro RN - Reason: See comment - Comment: BS 65 gave 15 oz of [place] Juice will recheck)0400 (Hold - Provider: Bernie Alfaro RN - Reason: See comment - Comment: bs 85)0800 (Not Given - Provider: Sara Elizabeth RN - Reason: Order parameters not met)1200 (Not Given - Provider: Sara Elizabeth RN - Reason: Order parameters not met) ipratropium-albuteroL (Duoneb) 0.5 mg-3 mg(2.5 mg base)/3 mL nebulizer solution 3 mL 3 mL, Nebulization, EVERY 4 HOURS, First dose (after last modification) on Wed03/14/24 at 1200, Until Discontinued, Routine 1200 (Not Given - Provider: Sara Elizabeth RN - Reason: Order parameters not met) pantoprazole EC (Protonix) tablet 40 mg 40 mg, Oral, DAILY, First dose on Wed03/13/24 at 0900, Until Discontinued, DO NOT CRUSH OR OPEN, Routine 101 (Given - Provider: Radha Ram RN) 0811 (Given - Provider: aSra Elizabeth RN) pregabalin (Lyrica) capsule 100 mg 100 mg, Oral, 2 TIMES DAILY, First dose on Wed03/13/24 at 0900, Until Discontinued, Routine 1012 (Given - Provider: Radha Ram RN)2041 (Given - Provider: Bernie Alfaro RN) 08 (Given - Provider: Saar Elizabeth RN) remdesivir (Veklury) 100 mg in sodium chloride 0.9% 250 mL infusion(Linked Group 2) 100 mg, Intravenous, EVERY 24 HOURS, 2 doses, First dose on Wed03/14/24 at 0400, Last dose on Wed03/15/24 at 0400, Administer over 30 Minutes, Administer separately from other medications. After infusion complete, flush line with 30 mL of NS at rate of 200 mL/hr. 0328 (New Bag - Provider: Bernie Alfaro RN)0358 (Stopped - Provider: Bernie Alfaro RN) remdesivir (Veklury) 200 mg in sodium chloride 0.9% 250 mL infusion (COMPLETED)(Linked Group 2) 200 mg, Intravenous, EVERY 24 HOURS, 1 dose, First dose on Wed03/13/24 at 0400, Administer over 30 Minutes, Administer separately from other medications. After infusion complete, flush line with 30 mL of NS at rate of 200 mL/hr. 0433 (New Bag - Provider: Bernie Alfaro RN)0503 (Stopped - Provider: Bernie Alfaro RN) sevelamer carbonate (Renvela) tablet 1,600 mg 1,600 mg, Oral, 3 TIMES DAILY, First dose on Wed03/13/24 at 0900, Until Discontinued 1012 (Given - Provider: Radha Ram RN)1733 (Given - Provider: Radha aRm RN)2041 (Given - Provider: Bernie Alfaro RN) 0811 (Given - Provider: Sara Elizabeth, VIDYA) sodium chloride 0.9 % (flush) (BD PosiFlush Normal Saline 0.9) flush 5 mL 5 mL, Intravenous, 2 TIMES DAILY, First dose on Wed03/13/24 at 0900, Until Discontinued, Routine 1020 (Given - Provider: Radha Ram RN)2042 (Given - Provider: Bernie Alfaro RN) 0814 (Given - Provider: Sara Elizabeth, VIDYA) PRN Medication Order 03/12/2024 03/13/2024 03/14/2024 dextrose 10% infusion(Linked Group 3) 250 mL, at 1,000 mL/hr, Intravenous, EVERY 15 MIN PRN, Starting on Wed03/13/24 at 0235, Until Wed03/14/24 at 1648, For BG 50-70 mg/dL: Oral treatment preferred: [...] the next dose. epoetin ken-epbx (Retacrit) injection 10,000 Units (COMPLETED) 10,000 Units, Intravenous, ONCE IN DIALYSIS PRN, 1 dose, Starting on Wed03/13/24 at 1026, Until Wed03/13/24 at 1257, Other, Dialysis (Intra-Procedure), Routine, What is the indication of use? End Stage Renal Disease (ESRD) on dialysis 1257 (Given - Provider: Aubrey Pimentel RN - Comment: Given during HD) glucagon (Glucagen) (1 mg/mL) injection solution 1 mg(Linked Group 3) 1 mg, Intramuscular, EVERY 15 MIN PRN, Starting on Wed03/13/24 at 0235, Until Wed03/14/24 at 1648, Low blood sugar, For BG 50-70 mg/dL: [...] Routine glucose (Glutose) 40% oral geL(Linked Group 3) 15-30 g of glucose, Buccal, EVERY 15 MIN PRN, Starting on Wed03/13/24 at 0235, Until Wed03/14/24 at 1648, Low blood sugar, For BG 50-70 mg/dL: [...] IN DIALYSIS PRN, 1 dose, Starting on Wed03/13/24 at 1026, Until Wed03/14/24 at 1648, Line Care, Per Protocol, Catheter lock use catheter specified fill volume per dialysis protocol. For use in Dialysis only. Procedure ID: 660 (Hemodialysis CVAD Procedure - Care and Maintenance) in Clinical Policies., Dialysis (Intra-Procedure), Routine lidocaine (Xylocaine) 1% (10 mg/mL) injection 3 mg 3 mg (0.3 mL), Subcutaneous, ONCE PRN, 1 dose, Starting on Wed03/13/24 at 0223, Until Wed03/14/24 at 1648, for discomfort with PIV insertion, Routine melatonin tablet 3 mg 3 mg, Oral, NIGHTLY PRN, Starting on Wed03/13/24 at 0223, Until Wed03/14/24 at 1648, Sleep, Sleep, Routine sodium chloride 0.9 % (flush) (BD PosiFlush Normal Saline 0.9) flush 5-20 mL 5-20 mL, Intravenous, EVERY 1 MIN PRN, Starting on Wed03/13/24 at 0223, Until Wed03/14/24 at 1648, flush, Flush pertains to all indwelling lines. Flush per protocol found in the job aid using the link provided on this medication record., Routine sodium chloride 0.9% infusion 100 mL, Intravenous, EVERY 15 MIN PRN, Starting on Wed03/13/24 at 1026, Until Wed03/14/24 at 1648, If administration of NS boluses will result in positive fluid balance at end of treatment, contact MDNori, Dialysis (Intra-Procedure) Linked Groups Order Group 1: POCT Fingerstick Glucose (CANCELED) Routine, EVERY 4 HOURS, First occurrence on Wed03/13/24 at 0240, Until Specified, Consider choosing EVERY 4 HOURS [...] EVERY 4 HOURS SCHEDULED, First dose on Wed03/13/24 at 0400, Until Discontinued, CORRECTION BOLUS [1-6 Units] Moderate Sliding Scale (BG in mg/dL): Correction factor 20 (1 unit of insulin is expected to drop the glucose 20 mg/dL) BG 140 - 160 Give 1 unit BG 161 - 180 Give 2 units BG 181 - 200 Give 3 units BG 201 - 220 Give 4 units BG 221 - 240 Give 5 units BG greater than 240, give 6 units and recheck BG in 2 hours. - If recheck BG is LESS than 240, give no insulin and resume schedule. - If recheck BG is GREATER than or EQUAL to 240, give 6 units and repeat BG in 2 hours (no more than 3 times) & call for new insulin orders. DO NOT hold if NPO, unless specifically directed to do so by written order. ?? Per Inpatient Subcutaneous Insulin Policy, recheck a BG of greater than 240 mg/dL in 2 hours., Routine Group 2: remdesivir (Veklury) 200 mg in sodium chloride 0.9% 250 mL infusion (COMPLETED)Jump to med 200 mg, Intravenous, EVERY 24 HOURS, 1 dose, First dose on Wed03/13/24 at 0400, Administer over 30 Minutes, Administer separately from other medications. After infusion complete, flush line with 30 mL of NS at rate of 200 mL/hr. Followed by remdesivir (Veklury) 100 mg in sodium chloride 0.9% 250 mL infusionJump to med 100 mg, Intravenous, EVERY 24 HOURS, 2 doses, First dose on Wed03/14/24 at 0400, Last dose on Wed03/15/24 at 0400, Administer over 30 Minutes, Administer separately from other medications. After infusion complete, flush line with 30 mL of NS at rate of 200 mL/hr. Group 3: glucose (Glutose) 40% oral geLJump to med 15-30 g of glucose, Buccal, EVERY 15 MIN PRN, Starting on Wed03/13/24 at 0235, Until Wed03/14/24 at 1648, Low blood sugar, For BG 50-70 mg/dL: [...] Intravenous, EVERY 15 MIN PRN, Starting on Wed03/13/24 at 0235, Until Wed03/14/24 at 1648, For BG 50-70 mg/dL: Oral treatment preferred: [...] Intramuscular, EVERY 15 MIN PRN, Starting on Wed03/13/24 at 0235, Until Wed03/14/24 at 1648, Low blood sugar, For BG 50-70 mg/dL: [...] before administering the next dose. , Routine documented in this encounter Care Teams Hide Selector Relationship Specialty Start Date End Date Ken Greer MD PCP - General Family Medicine 12/30/23 05/15/24 documented as of this encounter
--- OUTSIDE RECORDS SUMMARY | 2024-12-05 12:37 | XMS_ITS | Encounter Summary ---
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 No 02/20/2024 DH IPV Inpatient Questions Answer Date Recorded [...] Sign Reading Time Taken Comments Blood Pressure 151/76 03/09/2024 12:58 PM EDT Pulse 61 03/09/2024 12:58 PM EDT Temperature - - Respiratory Rate - - Oxygen Saturation - - Inhaled Oxygen Concentration - - Weight 81.6 kg (180 lb) 03/09/2024 12:58 PM EDT Height 177.8 cm (5' 10) 03/09/2024 12:58 PM EDT Body Mass Index 25.83 03/09/2024 12:58 PM EDT documented in this encounter Progress Notes * Kristi Renae MD - 03/09/2024 1:00 PM EDT Images from the original note were not included. VASCULAR SURGERY POSTOP FOLLOW-UP SERVICE DATE: 03/09/2024 SERVICE TIME: 2:22 PM PRIMARY CARE PHYSICIAN: Ken Greer MD REFERRING PROVIDER: No referring provider defined for this encounter. Operation: 02/21/2024 (Oc) - Left Below knee amputation History of Present Illness: Gerson Bruner is a 58 y.o. male with longstanding insulin-dependent diabetes and ESRD who presented emergently to the hospital with wet gangrene of his left foot. 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 He subsequently underwent a formal left BKA. His BKA has been healing well. There is some concern for cellulitis and was on oral antibiotics, however there is no issues to presenting today. He denies any erythema, drainage. Hedoes have some swelling in his bilateral lower extremities, worse on his left BKA. His incision is intact. He continues to have a large eschar on his right heel, he reports that he is offloading it continuously, washing it daily and painting with Betadine. He denies any drainage, fevers or chills Physical Exam: PHYSICAL EXAM Physical Exam Performed BP 151/76 (BP Location (NBP): Right arm, Patient Position: Sitting) Pulse 61 Ht 177.8 cm (5' 10) Wt 81.6 kg (180 lb) BMI 25.83 kg/m?? CONSTITUTIONAL: alert, well developed, well nourished, in no acute distress NEUROLOGIC/PSYCHIATRIC: Grossly normal HEENT: normal atraumatic LUNGS: breathing comfortably on RA HEART: regular rate and rhythm ABDOMEN: soft, non-tender; bowel sounds normal; no masses, no organomegaly INTEGUMENTARY: Wound -right heel ulceration with large eschar (Photo below) SURGICAL SITES: L BKA well healed Media Information Media Information Document Information Photographic Image: Photographs - Images 03/09/2024 13:50 Attached To: Office Visit on 03/09/24 with Kristi Renae MD Source Information Kristi Renae [place] [facility] [place] [place]: Radiology: 02/18/2024 MELLY Findings: Right Pressure (mm Hg) Waveform TBI Brachial Artery 190 Dorsalis Pedis (Ankle) Artery >240 Nolan-Biphasic Posterior Tibial (Ankle) Artery >240 Monophasic Great [...] 0.69 ---- Current ---- 0.50(-.56) 0.45(-.24) ---- I have personally reviewed the following images/data: MELLY Impression: 58 y.o. male status post left BKA for severe wet gangrene of the left foot. His BKA is healing very well. We will plan to remove his remi and sutures in 2 weeks. In the interim he should continue to wear compression either with a light Jarvis wrap or Tubigrip. His BKA stump should be washed daily with soap and water and pat it dry or. The patient also has a large right heel eschar that is significantly concerning. He has ABIs which on the right noted toe pressure of 110, however he has monophasic amount of biphasic waveforms at the ankle that are noncompressible. I discussed with him it is unclear whether or not I could improve his perfusion, but given these waveforms I do think it is worthwhile to do a right lower extremity angiogram to ensure there is nothing we can do to improve his perfusion. I suspect he does have a significant amount of distal tibial and small vessel disease that will be difficult to treat. I also recommended we get an MRI of his right foot to determine if there is underlying osteomyelitis of his calcaneus. I also reach out to my foot and ankle colleague to see their thoughts on potential management of this wound especially in this young 58-year-old who otherwise now has suffered a BKA on his contralateral side. Will plan to schedule either the MRI or the angiogram in about 2 weeks and we can remove his sutures at that same time to save an additional trip. To [facility] [place]. Plan: -Plan for right lower extremity angiogram, possible intervention. Will plan to do this on and off dialysis today -Right foot MRI to rule out osteomyelitis in his calcaneus -Follow-up in 2 weeks with either angiogram or MRI and we will remove sutures and remi at that same time -For wound care of the right foot. Should wash daily, and paint with Betadine. He is seeing wound care today we will determine if they have any other additional recommendations. Patient needs to be continuously offloading that heel. 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
--- OUTSIDE RECORDS SUMMARY | 2024-12-05 12:37 | XMS_ITS | Encounter Summary ---
Author Organization [facility] Address [facility] [place] [address] Care Team Providers Care Stamp Maker Name Role Phone Ken Greer MD Primary Care Provider [phone] Encounter Details Date Type Department Care Team (Latest Contact Info) Description 04/11/2024 Travel Social History Tobacco Use Types Packs/Day Years Used Date Smoking Tobacco: Every Day Cigarettes Last attempted to quit: 12/26/2018 Smokeless Tobacco: Never Comments:smoking a few a day Alcohol Use Standard Drinks/Week Comments No 0 (1 standard drink = 0.6 oz pur e alcohol) [facility] Utilities Answer Date Recorded In the [...] place to sleep or slept in a prison (including now)? No 02/20/2024 Housing Stability Vital [...] living in a prison (including now)? No 03/14/2024 IPV Inpatient Questions [...] on filedocumented in this encounter Care Teams Stamp Maker Relationship Specialty Start Date End Date Ken Greer MD PCP - General Family Medicine 12/30/23 05/15/24 documented as of this encounter
--- OUTSIDE RECORDS SUMMARY | 2024-12-05 12:37 | XMS_ITS | Encounter Summary ---
Author Organization [facility] Address [facility] [place] [address] Care Team Providers Care Moth Exterminator Name Role Phone Mike Greer MD Primary Care Provider [phone] Reason for Visit * Reason Onset Date Comments Medication Refill 03/14/2024 Encounter Details Date Type Department Care Team (Late st Contact Info) Description 03/14/2024 Refill Internal Medicine at [address] [place] [id number] Karrie Jensen MD [address] [facility] [place] [address] Social History Tobacco Use Types Packs/Day Years Used Date Smoking Tobacco: Light Smoker Cigarettes Last attempted t o quit: 12/26/2018 Smokeless Tobacco: Never Comments:smoking a few a day Alcohol Use Standard Drinks/Week Comments No 0 (1 standard drink = 0.6 oz pur e alcohol) [facility] Utilities Answer Date Recorded In the past 12 months has [employer], gas, oil, or water [employer] threatened to shut off services in your [...] to sleep or slept in a senior care (including now)? No 02/20/2024 Housing Stability Vital Sign Answer Lon e Recorded In the last 12 months, was t here a time when you were not able to pay the mortgage or rent on time? No 03/14/2024 In the past 12 months, how m any times have you moved where you were living? 1 03/14/2024 At any time in the past 12 m [facility], were you homeless or living in a senior care (including now)? No 03/14/2024 IPV Inpatient Questions [...] encounter Miscellaneous Notes * Telephone Encounter - Kay Mendez CMA - 03/14/2024 4:01 PM EDT I called and spoke to the patient as he is not a patient here, He is going to call his PCP and havehim speak to the pharmacy so they can get the medications he needs. * Telephone Encounter - Kay Mendez CMA - 03/14/2024 3:44 PM EDT I spoke to the pharmacy, there are three medications given at discharge that they can not fill. Semglee Insulin is not covered, only Lantus sevelamer , needs PA Heparin , not covered, pharmacy can do Lovenox but not vials * Telephone Encounter - Kay Mendez CMA - 03/14/2024 3:41 PM EDT Copied from [facility] #[id number]. Topic: Pharmacy Call - RX Issues >> March 14, 2024 3:26 PM Priya Ma wrote: Rx Issues PCP: MIKE GREER Reason for Call: pharmacy called in to inform DrNori That many medications were taking off patients med list as they are not covered under the patients insurance. Name of Medication: insulin glargine-yfgn (Semglee) 100 unit/mL Solution Name of Prescriber: Patrick Jensen MD Name of Pharmacy: [facility] Address for Pharmacy: [address] [place] [address]/[facility] for Pharmacy: - [place], [place] - Is the Patient Currently at the Pharmacy: no documented in this encounter Plan of Treatment Not on file documented as of this encounter Visit Diagnoses Not on filedocumented in this encounter Care Teams Moth Exterminator Relationship Specialty Start Date End Date Mike Greer MD PCP - General Family Medicine 12/30/23 05/15/24 documented as of this encounter
--- OUTSIDE RECORDS SUMMARY | 2024-12-05 12:37 | XMS_ITS | Encounter Summary ---
Author Organization Formerly [facility] Address [facility] [place] [address] Care Team Providers Care Supervisor Microwave Name Role Phone Ken Greer MD Primary Care Provider [phone] Encounter Details Date Type Department Care Team (Latest Contact Info) Description 03/09/2024 Travel Social History Tobacco Use Types Packs/Day [...] in a custodial (including now)? No 02/20/2024 IPV Inpatient Questions Answer Date Recorded Does [...] on filedocumented in this encounter Care Teams Supervisor Microwave Relationship Specialty Start Date End Date Ken Greer MD PCP - General Family Medicine 12/30/23 05/15/24 documented as of this encounter
--- OUTSIDE RECORDS SUMMARY | 2024-12-05 12:37 | XMS_ITS | Encounter Summary ---
Author Organization [facility] Address [facility] [place] [address] Care Team Providers Care Senior Climate Advisor Name Role Phone Ken Greer MD Primary Care Provider [phone] Encounter Details Date Type Department Care Team (Latest Contact Info) Description 04/04/2024 Travel Social History Tobacco Use Types Packs/Day Years Used Date Smoking Tobacco: Every Day Cigarettes Last attempted to quit: 12/26/2018 Smokeless Tobacco: Never Comments:smoking a few a day Alcohol Use Standard Drinks/Week Comments No 0 (1 standard drink = 0.6 oz pur e alcohol) [facility] Utilities Answer Date Recorded In the [...] place to sleep or slept in a halfway (including now)? No 02/20/2024 Housing Stability Vital [...] time in the past 12 m [facility], were you homeless or living in a halfway (including now)? No 03/14/2024 IPV Inpatient Questions [...] filedocumented in this encounter Care Teams Senior Climate Advisor Relationship Specialty Start Date End Date Ken Greer MD PCP - General Family Medicine 12/30/23 05/15/24 documented as of this encounter
--- OUTSIDE RECORDS SUMMARY | 2024-12-05 12:37 | XMS_ITS | Encounter Summary ---
Author Organization [facility] Address [facility] [place] [address] Care Team Providers Care Manufacturing Associate Name Role Phone Ken Greer MD Primary Care Provider [phone] Encounter Details Date Type Department Care Team (Late st Contact Info) Description 03/13/2024 5:10 AM EDT Ancillary Procedure Radiology Library [place] [address] Social History Tobacco Use Types Packs/Day Years [...] th e electric, gas, oil, or water [employer] threatened to shut off services in your [...] living in a custodial (including now)? No 03/14/2024 IPV Inpatient Questions [...] Procedure Name Priority Date/Time Associated Diagnosis Comments REQUEST FOR 2ND READ CT CHEST Routine 03/13/2024 5:05 AM EDT documented in this encounter Results * Request For 2nd Read CT Chest (03/13/2024 5:05 AM EDT) WORKSTATION ID [id number] RAD Anatomical Region Laterality Modality Chest SO [...] who have questions please contact the health manager career that requested your imaging first. ? Narrative 03/13/2024 8:32 AM EDT EXAMINATION: REQUEST FOR 2ND READ CT CHEST CLINICAL HISTORY: 58 y/o with ESRD w/ fever and infectious symptoms CT scan w/ bilatreal infiltrates; Sending Institution [facility]; Date of exam [id number]; I believe a [...] symptoms CTscan w/ bilatreal infiltrates; Sending Institution [facility]; Date of exam 20240312;I believe a reinterpretation [...] patients who have questions please contactthe health manager career that requested your imaging first. Cristian Malloy MD IMG OUTSIDE INTERPRE TATION ORDERABLES documented in this encounter Visit Diagnoses Not on filedocumented in this encounter Care Teams Manufacturing Associate Relationship Specialty Start Date End Date Ken Greer MD PCP - General Family Medicine 12/30/23 05/15/24 documented as of this encounter
--- OUTSIDE RECORDS SUMMARY | 2024-12-05 12:37 | XMS_ITS | Encounter Summary ---
Author Organization [facility] [place] [address] Care Team Providers Care Retail Advertising Sales Manager Name Role Phone Ken Greer MD Primary Care Provider [phone] Reason for Visit * Auth/Cert (Routine) Specialty Diagnoses / Procedures Referred By Nader pena Referred To Contact Diagnoses Critical ischemia of lower extremity hypertensive urgency Kristi Renae MD [facility] [place] [address] [facility] Referral ID Status Reason Start Date Expiration Date Visits Re quested Visits Authorized [id number] 1 1 Encounter Details Date Type Department Care Team (Latest Contact Info) Description 04/11/2024 1:44 PM EDT - 04/11/2024 5:37 PM EDT Hospital Encounter [place] [address] Kristi Renae MD [facility] [address] Non-healing open wound of right heel, subsequent encounter Discharge Disposition: Home Social History Tobacco Use Types Packs/Day Years Used Date Smoking Tobacco: Every Day Cigarettes Last attempted to quit: 12/26/2018 Smokeless Tobacco: Never Comments:smoking a few a day Alcohol Use Standard Drinks/Week Comments No 0 (1 standard drink = 0.6 oz pur e alcohol) [facility] Utilities Answer Date Recorded In the past 12 months has [employer] electric, gas, oil, or water company threatened [...] in a custodial (including now)? No 03/14/2024 DH IPV Inpatient [...] Sign Reading Time Taken Comments Blood Pressure 151/63 04/11/2024 5:15 PM EDT Pulse 74 04/11/2024 5:15 PM EDT Temperature 36.8 ??C (98.2 ??F) 04/11/2024 3:47 PM ED T Respiratory Rate 15 04/11/2024 5:15 PM EDT Oxygen Saturation 91% 04/11/2024 5:15 PM EDT Inhaled Oxygen Concentration - - Weight 89.4 kg (197 lb) 04/11/2024 1:46 PM EDT Height 175.3 cm (5' 9) 04/11/2024 1:46 PM EDT Body Mass Index 29.09 04/11/2024 1:46 PM EDT documented in this encounter Discharge Summaries * Felton Márquez MD - 04/11/2024 5:26 PM EDT Inpatient - Discharge Summary Patient Name: Gerson Bruner Patient Age: 58 y.o. Birthdate: 1965 Admit date: 04/11/2024 Discharge date and time: 04/11/2024 Attending Physician: Kristi Renae MD Discharging Provider: Felton Márquez MD Discharging Service: Vascular Surgery Operations/Major Procedures: 04/11: Right SFA angioplasty ([place] 5x60), Right SFA DCBA ([place] 5x100), Right PT angioplasty ([place] 2x100 and 2x20) Active Hospital Problems: Active Hospital Problems Diagnosis Critical ischemia of lower extremity Resolved Hospital Problems No resolved problems to display. Active Non Hospital Problems: Active Non-Hospital Problems Diagnosis Hypertensive urgency Acute hypoxic respiratory failure Surgical wound present [...] Betadine. He denies any drainage, fevers or chills. Last HD session yesterday, full run without issue. Hospital Course: Admitted s/p RLE angiogram with angioplasty as above. Was hypertensive during procedure and needed nicardipine gtt prior to sheath pull. Recovered in ISCU post-procedurally. HTN resolves with restarting home meds. Given plavix prior to d/c. Can restart DOAC in 48 hrs. Follow up in 1 m with ABIs/ TcPO2s. Important Studies and Lab Data: Labs: None Pending Studies and Lab Data: None Discharge Condition: Good Discharge to: Home Exam Temp: [36.8 ??C (98.2 ??F)-37.3 ??C (99.2 ??F)] Heart Rate: [67-82] Resp: [7-19] BP: (117-209)/(61-82) SpO2: [89 %-100 %] Heart Rate from SpO2: [67 bpm-82 bpm] BMI: Weight: 89.4 kg (197 lb) BMI (Calculated): 29.09 BMI Classification: Over Weight Physical Exam: GEN: Alert and appears stated age. Cooperative. In NAD. HEENT: Normocephalic and atraumatic. CV: Regular rate. Pulm: Breathing on room air. Abd: Soft, non-distended, non-tender to palpation. Skin: Color, texture, turgor normal. No rashes or lesions. Neuro: No gross sensory or motor abnormality. Extremities: Bilateral UE and LE warm and pink. No edema. Left groin access with dressing in place,c/d/I, soft, no evidence of hematoma. 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 Vascular: Doppler signals present at right DP and PT. Palpable femoral pulses bilaterally. Future Appointments and Orders Future Appointments and Orders Future Appointments Provider Department Dept Phone 04/25/2024 10:30 AM Lilia Perkins RN Wound Care at [facility] Arrive at: [facility] 4M [phone] 05/16/2024 2:00 PM Chad Bey Vascular Lab at [facility] Arrive at: [facility] 3V [phone] 05/16/2024 3:30 PM Jigna Freire APRN Vascular Surgery at [facility] Arrive at: [facility] [phone] Future Orders Complete By Expires MELLY/TCPO2 (Transcutaneous Oxygen Pressure Test) [[id number] Custom] 05/11/2024 11/10/2024 Process Instructions: There is no in-house vascular animal laboratory technician available on weeknights (5pm-8am), weekends, or holidays. IF THIS IS A REQUEST FOR AN EMERGENT STUDY DURING THOSE HOURS, please have the senior provider responsible for the patient page the Vascular Surgery Fellow/Senior Resident electric motor control assembler to discuss options. Scheduling Instructions: Questions: Location?: Foot Below knee Above knee Laterality: Right Which extremity?: Lower Indication for study/signs & symptoms: s/p SFA and PT angioplasty Question to be answered: ?change Preferred location?: [facility] Clinics Anticoagulation & Antiplatelet: Anticoagulation: Agent: Eliquis Indication: Afib Intended Duration: per prescriber Antiplatelet: Agent: Plavix Indication: PAD/ ASCVD Intended Duration: TBD For questions regarding these medications, please contact: For any problems or questions please call [phone] For issues on weeknights after 5pm and weekends please call [phone] and ask for the Vascular Fellow electric motor control assembler. Discharge Medications: Your Medications New Medications Dose Details clopidogreL 75 mg tablet Commonly known as: Plavix Take 1 tablet by mouth daily. Start taking on: April 12, 2024 75 mg Quantity: 30 tablet Refills: 3 Continued medications, unchanged Dose Details acetaminophen 325 [...] mg Quantity: 30 capsule Refills: 0 insulin glargine-yfgn 100 unit/mL Solution Commonly known as: Semglee Inject 15 Units subcutaneously daily. 15 Units Quantity: 1 mL Refills: 0 insulin lispro 100 unit/mL Solution [...] each meal Quantity: 180 tablet Refills: 5 Updated Allergies/ADRs: Allergies Allergen Reactions Clindamycin Swelling. Gabapentin swelling Zoloft [Sertraline] Other reaction(s): Unsure Follow-up Recommendations for Providers: 1 month with ABIs/ TcPO2s Instructions Given to Patient at Discharge: Patient Instructions [facility] Interventional Radiology Post Angiography Instructions Procedure: Right Lower Extremity Angiogram Puncture Site: Left groin 04/11/2024 Physician: Dr. Renae Medications: OK to resume Eliquis on 04/13, start plavix (clopidogrel) 75mg daily starting 04/12 1. At home we advise you to [...] have any questions or concerns, please call Vascular Department at until 4:45pm. After 4:45pm call [phone] and ask for the Vascular resident electric motor control assembler. 10. If you are a diabetic and [...] drainage occurs, please contact your M. D. Revised 08/10/19 Vascular Surgery Contact Information: For any problems or questions please call [phone] For issues on weeknights after 5pm and weekends please call [phone] and ask for the Vascular Fellow electric motor control assembler. Felton Márquez MD Vascular Surgery Resident 04/11/2024 documented in this encounter Discharge Instructions * Patient Instructions* Russell Cohen MD - 04/11/2024 1:51 PM EDT [facility] Interventional Radiology Post Angiography Instructions Procedure: Right Lower Extremity Angiogram Puncture Site: Left groin 04/11/2024 Physician: Dr. Renae Medications: OK to resume Eliquis on 04/13, start plavix (clopidogrel) 75mg daily starting 04/12 1. At home we advise you to [...] have any questions or concerns, please call Vascular Department at until 4:45pm. After 4:45pm call and ask for the Vascular resident electric motor control assembler. 10. If you are a diabetic and [...] drainage occurs, please contact your M. D. Revised 08/10/19 documented in this encounter Medications [...] with each meal 180 tablet 5 03/14/2024 clopidogreL (Plavix) 75 mg tablet Take 1 tablet by mouth daily. 30 tablet 3 04/12/2024 04/29/2024 insulin glargine-yfgn (Semglee) 100 unit/mL Solution Inject 15 Units subcutaneously daily. 1 mL 03/14/2024 04/29/2024 documented as of this encounter H&P Notes * Russell Cohen MD - 04/11/2024 1:32 PM EDT Vascular Surgery Angiography History and Physical [...] Surgical History: Patient Active Problem List Diagnosis Hypertensive urgency Acute hypoxic respiratory failure Surgical wound present [...] Grandmother Heart Disease Paternal Grandfather Medications: Current Facility-Administered Medications Medication Dose Route Frequency Provider Last Rate Last Admin sodium chloride 0.9 % (flush) (BD PosiFlush Normal Saline 0.9) flush 5 mL 5 mL Intravenous BID Russell Cohen MD sodium chloride 0.9 % (flush) (BD PosiFlush Normal Saline 0.9) flush 5-20 mL 5- 20 mL Intravenous Q1Min PRN Russell Cohen MD lidocaine (Xylocaine) 1% (10 mg/mL) injection 3 mg 0.3 mL Subcutaneous Once PRN Yuko Cohen MD acetaminophen (Tylenol) tablet 975 mg 975 mg Oral Q6H PRN Russell Cohen MD clopidogreL (Plavix) tablet 75 mg 75 mg Oral Once Russell Cohen MD Current Outpatient Medications Medication Sig Dispense Refill [...] day with each meal 180 tablet 5 Facility-Administered Medications Ordered in Other Encounters Medication Dose Route Frequency Provider Last Rate Last Admin sodium chloride 0.9 % (flush) (BD PosiFlush Normal Saline 0.9) flush 5 mL 5 mL Intravenous BID Russell Cohen MD sodium chloride 0.9 % (flush) (BD PosiFlush Normal Saline 0.9) flush 5-20 mL 5- 20 mL Intravenous Q1Min PRN Russell Cohen MD lidocaine (Xylocaine) 1% (10 mg/mL) injection 3 mg 0.3 mL Subcutaneous Once PRN Yuko Cohen MD sodium chloride 0.9 % (flush) (BD PosiFlush Normal Saline 0.9) flush 10 mL 10 mL Intravenous Daily PRN Russell Cohen MD fentaNYL (pf) (50 mcg/mL) multi-dose injection 25-50 mcg 25-50 mcg Intravenous Q3 Min PRN Russell Cohen MD 25 mcg at 04/11/24 1310 flumazeniL (Romazicon) (0.1 mg/mL) injection 0.2 mg 0.2 mg Intravenous Q2 Min PRN Russell Cohen MD naloxone (NARCAN) injection 1 mg/mL 0.1 mg 0.1 mg Intravenous Q2 Min PRN Russell Cohen MD lidocaine (Xylocaine) 1% (10 mg/mL) injection 10 mg 10 mg Subcutaneous Once Russell Cohen MD midazolam (pf) (Versed) (1 mg/mL) multi-dose injection 0.5-1 mg 0.5-1 mg Intravenous Q3 Min PRN Russell Cohen MD 0.5 mg at 04/11/24 1025 iodixanoL (Visipaque) (320 mg/mL) injection solution 1-400 mL 1-400 mL Intra- arterial Once Russell Cohen MD labetaloL (Normodyne) (5 mg/mL) injection solution 10-20 mg 10-20 mg Intravenous Q10 Min PRN Russell Cohen MD 10 mg at 04/11/24 1143 niCARdipine (Cardene) (0.2 mg/mL) in sodium chloride 200 mL infusion 0-15 mg/hr Intravenous Continuous Kristi Renae MD 25 mL/hr at 04/11/24 1315 5 mg/hr at 04/11/24 1315 niCARdipine (Cardene) (0.2 mg/mL) in sodium chloride 200 mL infusion 0-15 mg/hr Intravenous Continuous Cain Lewis MD amLODIPine (Norvasc) tablet 10 mg 10 mg Oral Daily Cain Lewis MD carvediloL (Coreg) tablet 12.5 mg 12.5 mg Oral BID WC Cain Lewis MD Allergies: Clindamycin, Gabapentin, and Zoloft [sertraline] Physical [...] Artery 190 Dorsalis Pedis (Ankle) Artery >240 Independence-Biphasic Posterior Tibial (Ankle) Artery >240 Monophasic Great [...] who has a non- healing right heel ulcer Now s/p right SFA and PT angioplasty - Admit obs post op for BP monitoring, wean nicard gtt - Restart home BP meds - Give plavix 75mg today - Restart DOAC in 48 hrs - Likely can d/c today after BP goals met and post-op monitoring - Will need follow up in ~4 weeks with ABIs/ TcPO2s Russell Cohen MD Vascular Surgery Resident Team pager [phone] Personal pager [phone] 04/11/2024 documented in this encounter Miscellaneous Notes * Plan of Care - Fareed Harper RN - 04/11/2024 5:37 PM EDTSummary: Discharge note Pt transitioned from Nicardipine IV gtt to PO medications successfully. BP stable. Lines discontinued and AVS education provided. Pt discharged to home with . * Consult Note - Vanessa Khan RN - 04/11/2024 2:31 PM EDT Was originally called for Nadiya Eisenberg. This pt was having SFA and PT angioplasty this afternoon whenbecame unstable in procedure. It was reported pt's BP was in the 180's during procedure and pt was unable Code eleanor was called to initiate nicardipine infusion in Interventional radiology. Pt at this time was outpatient. In discussion with Dr. Renae, pt had to be accepted to inpatient level of care and transferred to appropriate unit. Pt had already been started on 5 mg of nicardipine by IR RN. BP goals were to keep BP <160. Upon assumption of care, pt's BP was within range. Procedure had completed and the vascular resident was removing arterial sheath. Pt is drowsy but easily arouse able. Primary IR RN states that last dose versed was 2 hours prior to this writers arrival. She states that his Nii score is back to baseline. Pt states that pain is manageable but is nauseated. Pt denies any other symptoms at time of care. Pt was packed from IR, IR nurse gave report to ISCU RN. Pt was transferred on stretcher on Nicardipine gtt and NC. Pt was transferred in stable condition. BP was within range. Update given to receiving RN. Thank you for letting us participate in his cares. Vanessa Joe RN [facility] [phone] documented in this encounter Plan of Treatment Not on file documented as of this encounter Visit Diagnoses Diagnosis Critical ischemia of lower extremity- Primary Non-healing open wound of right heel, subsequent encounter documented in this encounter Admitting Diagnoses Diagnosis Critical ischemia of lower extremity documented in this encounter Administered Medications Inactive Administered Medications - up to 3 most recent administrations Medication Order MAR Action Action Date Dose Rate Site acetaminophen (Tylenol) tablet 975 mg 975 mg, Oral, EVERY 6 HOURS PRN, Starting on Wed04/11/24 at 1331, Until Wed04/11/24 at 1937, Pain, Fever, Administer for pain or temperature greater than or equal to 38.2 degrees Celsius. Maximum daily dose of acetaminophen from all sources not to exceed 4,000 mg. When ordered for pain, acetaminophen should be given even when other ordered pain medications are indicated., Routine amLODIPine (Norvasc) tablet 10 mg 10 mg, Oral, DAILY, First dose on Wed04/11/24 at 1515, Until Discontinued, STAT Given 04/11/2024 3:13 PM EDT 10 mg amLODIPine (Norvasc) tablet 10 mg 10 mg, Oral, DAILY, First dose on Wed04/11/24 at 1615, Until Discontinued, STAT Given 04/11/2024 4:28 PM EDT 10 mg atorvastatin (Lipitor) tablet 40 mg 40 mg, Oral, EVERY EVENING, First dose on Wed04/11/24 at 1715, Until Discontinued, Routine Given 04/11/2024 4:31 PM EDT 40 mg carvediloL (Coreg) tablet 12.5 mg 12.5 mg, Oral, 2 TIMES DAILY WITH MEALS, First dose on Wed04/11/24 at 1515, Until Discontinued, STAT Given 04/11/2024 3:13 PM EDT 12.5 mg carvediloL (Coreg) tablet 12.5 mg 12.5 mg, Oral, 2 TIMES DAILY WITH MEALS, First dose on Wed04/11/24 at 1615, Until Discontinued, STAT Given 04/11/2024 4:28 PM EDT 12.5 mg clopidogreL (Plavix) tablet 75 mg 75 mg, Oral, ONCE, 1 dose, On Wed04/11/24 at 1430, Routine Given 04/11/2024 3:14 PM EDT 75 mg dextrose 10% infusion 250 mL, at 1,000 mL/hr, Intravenous, EVERY 15 MIN PRN, Starting on Wed04/11/24 at 1620, Until Wed04/11/24 at 1937, For BG 50-70 mg/dL: Oral treatment preferred: [...] insulin orders before administering the next dose. glucagon (Glucagen) (1 mg/mL) injection solution 1 mg 1 mg, Intramuscular, EVERY 15 MIN PRN, Starting on Wed04/11/24 at 1620, Until Wed04/11/24 at 1937, Low blood sugar, For BG 50-70 mg/dL: [...] Buccal, EVERY 15 MIN PRN, Starting on Wed04/11/24 at 1620, Until Wed04/11/24 at 1937, Low blood sugar, For BG 50-70 mg/dL: [...] weight of tube = 37.5 grams.), Routine insulin lispro (HumaLOG;Admelog) (100 unit/mL) subcutaneous injection vial 1-4 Units 1-4 Units, Subcutaneous, EVERY 4 HOURS SCHEDULED, First dose on Wed04/11/24 at 1715, Until Discontinued, CORRECTION BOLUS [1-4 Units] Sensitive [...] than 240 mg/dL in 2 hours., Routine lidocaine (Xylocaine) 1% (10 mg/mL) injection 3 mg 3 mg (0.3 mL), Subcutaneous, ONCE PRN, 1 dose, Starting on Wed04/11/24 at 1330, Until Wed04/11/24 at 1937, for discomfort with PIV insertion, Routine niCARdipine (Cardene) (0.2 mg/mL) in sodium chloride 200 mL infusion 0-15 mg/hr (0-75 mL/hr), Intravenous, CONTINUOUS, Starting on Wed04/11/24 at 1515, Until Wed04/11/24 at 1937, Titrate to systolic blood pressure (SBP) greater than 160 mmHg and less than 90 mmHg. Start at 5 mg/hr. Increase/decrease by 2.5 mg/hr every 5 minutes until goal reached. Do not exceed 15 mg/hr. Rotate IV site every 12 hours., Routine Rate/Dose Change 04/11/2024 4:00 PM EDT 2.5 mg/hr 12.5 mL/hr New Bag 04/11/2024 3:14 PM EDT 5 mg/hr 25 mL/hr ondansetron (pf) (Zofran) (2 mg/mL) injection 4 mg 4 mg, Intravenous, EVERY 8 HOURS PRN, Starting on Wed04/11/24 at 1520, Until Wed04/11/24 at 1937, Nausea Given 04/11/2024 3:26 PM EDT 4 mg pantoprazole EC (Protonix) tablet 40 mg 40 mg, Oral, DAILY, First dose on Wed04/11/24 at 1715, Until Discontinued, DO NOT CRUSH OR OPEN, Routine Given 04/11/2024 4:36 PM EDT 40 mg pregabalin (Lyrica) capsule 75 mg 75 mg, Oral, DAILY, First dose (after last modification) on Wed04/12/24 at 0900, Until Discontinued, Routine prochlorperazine (Compazine) (5 mg/mL) injection 10 mg 10 mg, Intravenous, EVERY 6 HOURS PRN, Starting on Wed04/11/24 at 1520, Until Wed04/11/24 at 1937, Nausea, Routine sodium chloride 0.9 % (flush) (BD PosiFlush Normal Saline 0.9) flush 5 mL 5 mL, Intravenous, 2 TIMES DAILY, First dose on Wed04/11/24 at 1430, Until Discontinued, Routine Given 04/11/2024 3:14 PM EDT 5 mLs sodium chloride 0.9 % (flush) (BD PosiFlush Normal Saline 0.9) flush 5-20 mL 5-20 mL, Intravenous, EVERY 1 MIN PRN, Starting on Wed04/11/24 at 1330, Until Wed04/11/24 at 1937, flush, Flush pertains to all indwelling lines. Flush per protocol found in the job aid using the link provided on this medication record., Routine documented in this encounter Active and Recently Administered Medications Times are shown in EDT. Scheduled Medication Order 04/09/2024 04/10/2024 04/11/2024 amLODIPine (Norvasc) tablet 10 mg (CANCELED) 10 mg, Oral, DAILY, First dose on Wed04/11/24 at 1515, Until Discontinued, STAT 1513 (Given - Provid er: Fareed Harper RN) amLODIPine (Norvasc) tablet 10 mg 10 mg, Oral, DAILY, First dose on Wed04/11/24 at 1615, Until Discontinued, STAT 1628 (Given - Provid er: Fareed Harper RN) atorvastatin (Lipitor) tablet 40 mg 40 mg, Oral, EVERY EVENING, First dose on Wed04/11/24 at 1715, Until Discontinued, Routine 1631 (Given - Provid er: Fareed Harper RN) carvediloL (Coreg) tablet 12.5 mg (CANCELED) 12.5 mg, Oral, 2 TIMES DAILY WITH MEALS, First dose on Wed04/11/24 at 1515, Until Discontinued, STAT 1513 (Given - Provid er: Fareed Harper RN) carvediloL (Coreg) tablet 12.5 mg 12.5 mg, Oral, 2 TIMES DAILY WITH MEALS, First dose on Wed04/11/24 at 1615, Until Discontinued, STAT 1628 (Given - Provid er: Fareed Harper RN) cholecalciferoL (Vitamin D3) tablet 1,000 Units 1,000 Units, Oral, DAILY, First dose on Wed04/12/24 at 0900, Until Discontinued, 40 units is equivalent to 1 mcg of cholecalciferol., Routine clopidogreL (Plavix) tablet 75 mg (COMPLETED) 75 mg, Oral, ONCE, 1 dose, On Wed04/11/24 at 1430, Routine 1514 (Given - Provid er: Fareed Harper RN) insulin lispro (HumaLOG;Admelog) (100 unit/mL) subcutaneous injection vial 1-4 Units(Linked Group 1) 1-4 Units, Subcutaneous, EVERY 4 HOURS SCHEDULED, First dose on Wed04/11/24 at 1715, Until Discontinued, CORRECTION BOLUS [1-4 Units] Sensitive [...] than 240 mg/dL in 2 hours., Routine 1714 (Not Given - Pr ovider: Fareed Harper RN - Reason: Order parameters not met - Comment: Blood glucose 99) pantoprazole EC (Protonix) tablet 40 mg 40 mg, Oral, DAILY, First dose on Wed04/11/24 at 1715, Until Discontinued, DO NOT CRUSH OR OPEN, Routine 163 (Given - Provid er: Fareed Harper RN) pregabalin (Lyrica) capsule 75 mg 75 mg, Oral, DAILY, First dose (after last modification) on Wed04/12/24 at 0900, Until Discontinued, Routine sevelamer carbonate (Renvela) tablet 800 mg 800 mg, Oral, 3 TIMES DAILY, First dose on Wed04/11/24 at 1715, Until Discontinued 1714 (Not Given - Pr ovider: Fareed Harper RN - Reason: NPO) sodium chloride 0.9 % (flush) (BD PosiFlush Normal Saline 0.9) flush 5 mL 5 mL, Intravenous, 2 TIMES DAILY, First dose on Wed04/11/24 at 1430, Until Discontinued, Routine 151 (Given - Provid er: Fareed Harper RN) Continuous Medication Order 04/09/2024 04/10/2024 04/11/2024 niCARdipine (Cardene) (0.2 mg/mL) in sodium chloride 200 mL infusion 0-15 mg/hr (0-75 mL/hr), Intravenous, CONTINUOUS, Starting on Wed04/11/24 at 1515, Until Wed04/11/24 at 1937, Titrate to systolic blood pressure (SBP) greater than 160 mmHg and less than 90 mmHg. Start at 5 mg/hr. Increase/decrease by 2.5 mg/hr every 5 minutes until goal reached. Do not exceed 15 mg/hr. Rotate IV site every 12 hours., Routine 1514 (New Bag - Prov ider: Fareed Harper RN)1600 (Rate/Dose Change - Provider: Fareed Harper RN)1638 (Stopped - Provider: Fareed Harper RN) PRN Medication Order 04/09/2024 04/10/2024 04/11/2024 acetaminophen (Tylenol) tablet 975 mg 975 mg, Oral, EVERY 6 HOURS PRN, Starting on Wed04/11/24 at 1331, Until Wed04/11/24 at 193, Pain, Fever, Administer for pain or temperature greater than or equal to 38.2 degrees Celsius. Maximum daily dose of acetaminophen from all sources not to exceed 4,000 mg. When ordered for pain, acetaminophen should be given even when other ordered pain medications are indicated., Routine dextrose 10% infusion(Linked Group 2) 250 mL, at 1,000 mL/hr, Intravenous, EVERY 15 MIN PRN, Starting on Wed04/11/24 at 1620, Until Wed04/11/24 at 1937, For BG 50-70 mg/dL: Oral treatment preferred: [...] insulin orders before administering the next dose. glucagon (Glucagen) (1 mg/mL) injection solution 1 mg(Linked Group 2) 1 mg, Intramuscular, EVERY 15 MIN PRN, Starting on Wed04/11/24 at 1620, Until Wed04/11/24 at 1937, Low blood sugar, For BG 50-70 mg/dL: [...] Buccal, EVERY 15 MIN PRN, Starting on Wed04/11/24 at 1620, Until Wed04/11/24 at 1937, Low blood sugar, For BG 50-70 mg/dL: [...] weight of tube = 37.5 grams.), Routine lidocaine (Xylocaine) 1% (10 mg/mL) injection 3 mg 3 mg (0.3 mL), Subcutaneous, ONCE PRN, 1 dose, Starting on Wed04/11/24 at 1330, Until Wed04/11/24 at 1937, for discomfort with PIV insertion, Routine ondansetron (pf) (Zofran) (2 mg/mL) injection 4 mg 4 mg, Intravenous, EVERY 8 HOURS PRN, Starting on Wed04/11/24 at 1520, Until Wed04/11/24 at 1937, Nausea 1526 (Given - Provid er: Fareed Harper RN) prochlorperazine (Compazine) (5 mg/mL) injection 10 mg 10 mg, Intravenous, EVERY 6 HOURS PRN, Starting on Wed04/11/24 at 1520, Until Wed04/11/24 at 1937, Nausea, Routine sodium chloride 0.9 % (flush) (BD PosiFlush Normal Saline 0.9) flush 5-20 mL 5-20 mL, Intravenous, EVERY 1 MIN PRN, Starting on Wed04/11/24 at 1330, Until Wed04/11/24 at 1937, flush, Flush pertains to all indwelling lines. Flush per protocol found in the job aid using the link provided on this medication record., Routine Linked Groups Order Group 1: POCT Fingerstick Glucose (CANCELED) Routine, EVERY 4 HOURS, First occurrence on Wed04/11/24 at 1625, Until Specified, Consider choosing EVERY 4 HOURS as frequency for: - Type 1 Diabetes - At least 24 hours after coming off an insulin drip - At least 24 hours after admission for DKA - Hypoglycemia unawareness - Patients who are otherwise unstable Select the same frequency for the correction bolus insulin order And insulin lispro (HumaLOG;Admelog) (100 unit/mL) subcutaneous injection vial 1-4 UnitsJump to med 1-4 Units, Subcutaneous, EVERY 4 HOURS SCHEDULED, First dose on Wed04/11/24 at 1715, Until Discontinued, CORRECTION BOLUS [1-4 Units] Sensitive [...] mg/dL in 2 hours., Routine Group 2: glucose (Glutose) 40% oral geLJump to med 15-30 g of glucose, Buccal, EVERY 15 MIN PRN, Starting on Wed04/11/24 at 1620, Until Wed04/11/24 at 1937, Low blood sugar, For BG 50-70 mg/dL: [...] Intravenous, EVERY 15 MIN PRN, Starting on Wed04/11/24 at 1620, Until Wed04/11/24 at 193, For BG 50-70 mg/dL: Oral treatment preferred: [...] Intramuscular, EVERY 15 MIN PRN, Starting on Wed04/11/24 at 1620, Until Wed04/11/24 at 1937, Low blood sugar, For BG 50-70 mg/dL: [...] Routine documented in this encounter Care Teams Retail Advertising Sales Manager Relationship Specialty Start Date End Date Ken Greer MD PCP - General Family Medicine 12/30/23 05/15/24 documented as of this encounter
--- OUTSIDE RECORDS SUMMARY | 2024-12-05 12:37 | XMS_ITS | Encounter Summary ---
Author Organization [facility] [place] [address] Care Team Providers Care Certified Ophthalmic Medical Technician Name Role Phone Ken Greer MD Primary Care Provider [phone] Reason for Referral * Diagnostic Test (Routine) - Closed Specialty Diagnoses / Procedures Referred By Nader gardiner Referred To Contact Radiology Diagnoses S/P BKA (below knee amputation) unilateral, left Procedures VS Arteriogram Lower Extremity Vascular Surgery Kristi Renae MD [facility] [place] [address] [facility] [place] [address] Referral ID Status Reason Start Date Expiration Date V isits Requested Visits Authorized [id number] Closed Specialty Service Requested 03/10/2024 09/09/2025 1 1 Encounter Details Date Type Department Care Team (Late st Contact Info) Description 03/09/2024 Orders [place] [address] Daya Rand RN S/P BKA (below knee amputation) unilateral, left [...] a skilled nursing (including now)? No 02/20/2024 [facility] IPV Inpatient [...] on file documented as of this encounter Results * VS Arteriogram Lower Extremity Vascular Surgery (04/11/2024 1:36 PM EDT) Anatomical Region Laterality Modality X-Ray Angiograph y Narrative 04/17/2024 10:36 AM EDT Vascular Surgery Procedure Note Pre-procedure Dx: RLE CLI Post-procedure Dx: Same Procedure: 1. ??Ultrasound and fluoroscopic guided left femoral arterial access 2. ??Fourth order selective catheterization of right posterior tibial artery 3. ??Right lower extremity angiogram 4. Right SFA angioplasty ([place] 5x60) 5. Right SFA DCBA (Rome 5x100) 6. Right posterior tibial artery angioplasty (Josseline 2x100 and 2x20) 7. Mynx closure Surgeons: Dr Renae - Attending Dr Cohen - Resident Anesthesia: Conscious sedation, local 10 cc 1% lidocaine Medications: Fentanyl: 200 mcg ?? Versed: 2 mg Heparin: 18377 units ?? Antibiotics: 2g Ancef Protamine: 40 [...] current wound) - Intervention: Right SFA angioplasty ([place] 5x60), Right SFA DCBA (Rome 5x100), Right PT angioplasty (Josseline 2x100 and 2x20) - Completion angiogram demonstrated: [...] drug-coated balloon angioplasty was performed using a Rome 5 x 100 balloon for 3 minutes. [...] of the right PT artery with a josseline 2x100. ??Repeat angiography demonstrated an area of more distal stenosis that was then treated by a 2 x 20 josseline balloon. ??Completion angiography demonstrated excellent PT patency [...] ? Kristi Renae MD IMG IR ORDERABLES documented in this encounter Visit Diagnoses Diagnosis S/P BKA (below knee amputation) unilateral, left CKD (chronic kidney disease) stage 5, GFR less than 15 ml/min Chronic kidney disease, Stage V Anemia of chronic renal failure, stage 4 (severe) S/P BKA (below knee amputation) unilateral, left documented in this encounter Care Teams Certified Ophthalmic Medical Technician Relationship Specialty Start Date End Date Ken Greer MD PCP - General Family Medicine 12/30/23 05/15/24 documented as of this encounter
--- OUTSIDE RECORDS SUMMARY | 2024-12-05 12:37 | XMS_ITS | Encounter Summary ---
Author Organization [facility] Address [facility] [place] [address] Care Team Providers Care Investor Relations Analyst Name Role Phone Ken Greer MD Primary Care Provider Encounter Details Date Type Department Care Team (Late st Contact Info) Description 03/12/2024 12:05 AM EDT Ancillary Procedure Radiology Library at [facility] [place] [id number] Social History Tobacco Use Types Packs/Day Years [...] in a longterm (including now)? No 02/20/2024 [facility] Inpatient Questions [...] Associated Diagnosis Comments FILM LIBRARY STORAGE ONLY CT CHEST Routine 03/12/2024 12:05 AM EDT documented in this encounter Results * Film Library- Storage Only CT Chest (03/12/2024 12:05 AM EDT) Narrative [facility] - 03/13/2024 5:01 AM EDT This exam is auto-finalizing. It's purpose is for storage only. Cristian Malloy MD IMG FILM LIBRARY ORD ERABLES Performing Organization Address City/State/[facility] Co de Phone Number [place], [place] documented in this encounter Visit Diagnoses Not on filedocumented in this encounter Care Teams Investor Relations Analyst Relationship Specialty Start Date End Date Ken Greer MD PCP - General Family Medicine 12/30/23 05/15/24 documented as of this encounter
--- OUTSIDE RECORDS SUMMARY | 2024-12-05 12:37 | XMS_ITS | Encounter Summary ---
Author Organization [facility] Address [facility] Y[facility] [place] [address] Care Team Providers Care Physician Extender Name Role Phone Ken Greer MD Primary Care Provider [phone] Encounter Details Date Type Department Care Team (Late st Contact Info) Description 03/10/2024 Telephone Vascular Surgery at [facility] [place] [id number] Connie Newman Social History Tobacco Use Types Packs/Day Years [...] place to sleep or slept in a mcc (including now)? No 02/20/2024 PEND[facility]ALE TO [facility] Inpatient Questions Answer Date Recorded Does Anyone [...] encounter Miscellaneous Notes * Telephone Encounter - Connie Newman - 03/10/2024 8:32 AM EDT Tried calling patient who requested I call his Hoda [phone]. Rudi phone rings 3x and disconnects. Patient needs 2week FUV MRI and Suture removal same day can be with [facility]. Trying to schedule angio for same day, once MRI and Suture removal scheduled send a message to . NEED to know- can patient lie down flat for 60 Minutes (has breathing issues). What days are dialysis MRI needs to be day after documented in this encounter Plan of Treatment Not on file documented as of this encounter Visit Diagnoses Not on filedocumented in this encounter Care Teams Physician Extender Relationship Specialty Start Date End Date Ken Greer MD PCP - General Family Medicine 12/30/23 05/15/24 documented as of this encounter
--- OUTSIDE RECORDS SUMMARY | 2024-12-05 12:37 | XMS_ITS | Encounter Summary ---
Author Organization [facility] [place] [address] Care Team Providers Care Shell Press Operator Name Role Phone Ken Greer MD Primary Care Provider [phone] Reason for Visit * Consultation (Urgent) - Authorized Specialty Diagnoses / Procedures Referred By Nader pena Referred To Contact Wound Care Diagnoses Ulcer of foot, unspecified laterality, unspecified ulcer stage DIABETIC FOOT ULCER Glynn Esteves MD [address] [place] [address] [place] [address] [facility] [place] [address] Referral ID Status Reason Start Date Expiration Date Visits Requested Visits Authorized [id number] Authorized Consult, Test & Treat PCP Updated and/or Approved 02/18/2024 02/17/2025 6 6 Encounter Details Date Type Department Care Team (Late st Contact Info) Description 03/09/2024 3:00 PM EDT Office [place] [phone] Apurva Crowley APRN [facility] [place] [address] Surgical wound present; Status post below knee amputation, left; Diabetic ulcer of right heel associated with diabetes mellitus due to underlying condition, with other ulcer severity; Blister of second toe of right foot, initial encounter Social History Tobacco Use Types Packs/Day [...] in a mcc (including now)? No 02/20/2024 [facility] Inpatient [...] Sign Reading Time Taken Comments Blood Pressure 176/66 03/09/2024 2:56 PM EDT Pulse 64 03/09/2024 2:56 PM EDT Temperature 36.9 ??C (98.4 ??F) 03/09/2024 2:56 PM ED T Respiratory Rate - - Oxygen Saturation 95% 03/09/2024 2:56 PM EDT Inhaled Oxygen Concentration - - Weight - - Height - - Body Mass Index - - documented in this encounter Patient Instructions * Patient Instructions* Apurva Crowley APRN - 03/09/2024 3:00 PM EDT Wound care Instructions: Left BKA Change [...] Beef, chicken, fish Beans, Lentils, peanut butter [place] and regular yogurt Cheese, eggs Boost, Ensure shakes Protein powder in a smoothie of your choice Monitor for signs of infection which may include: Fever Sweats Chills Nausea, Vomiting or Diarrhea Unexplained increase in Blood Glucose levels At or around the wound site: Increased pain Swelling or edema Redness Warmth Purulent drainage (thick yellow/green drainage) Malodor Contact the [facility] with any above symptoms Wednesday- Wednesday 8:00AM-4:30PM ([phone]). If weekends / holidays / evenings, please [...] taken care of by your physician or liquid waste treatment plant operator. Avoid using any chemical or strong antiseptic solutions on your feet. Iodine, salicylic acid, corn/callus removers may burn the skin. documented in this encounter Progress Notes * Apurva Crowley APRN - 03/09/2024 3:00 PM EDT Images from the original note were not included. [facility] Initial Consultation Note Reason [...] 2 months, and he follows with a liquid waste treatment plant operator for these. He presented to [facility] initially after noting fevers and after his VNA identified worsening redness of the left foot. He states that at baseline he does not ambulate much. The patient has not had any vascular interventions in the past, although he has been evaluated by a vascular surgeon at [facility] who determined that he does not have [...] erythema or drainage, IV antibiotics discontinued. D/C [facility]. 03/10/24: Vascular f/u- note pending The medical history and recent labs were reviewed prior to the patient's appointment. VNA: [facility] Patient Active Problem List Diagnosis Code Type [...] anemia due to acute blood loss D62 Social History Socioeconomic History Marital status: Spouse name: Not on file Number of children: Not on file Years of education: Not on file Highest education level: Not on file Occupational History Not on file Tobacco Use Smoking status: Light Smoker Packs/day: .25 Types: Cigarettes Last attempt to quit: 12/26/2018 Years since quittin.2 Smokeless tobacco: Never Tobacco comments: smoking a few a day Vaping Use Vaping Use: Never used Substance and Sexual Activity Alcohol use: No [...] Unstable Housing in the Last Year: No Social History: lives in [place], 2h away, lives with brother and GF, hopes to finish home in [place] 1 cat, 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 Imaging: Xray Bilateral Feet 02/18/24 FINDINGS: Right foot: [...] labs: Lab Results Component Value Date WBC 12.7 (H) 02/25/2024 HGB 8.4 (L) 02/25/2024 HCT 26.6 (L) 02/25/2024 MCV 89.9 02/25/2024 PLATELET 482 (H) 02/25/2024 Lab Results Component Value Date NA 137 02/25/2024 K 5.1 (H) 02/25/2024 CL 98 02/25/2024 CO2 26 02/25/2024 BUN 32 (H) 02/25/2024 CREATININE 6.92 (H) 02/25/2024 GLUCOSE 194 02/25/2024 GLUCFASTING 331 (H) 03/07/2019 CALCIUM 8.9 02/25/2024 ESTGFR 9 (L) 02/25/2024 Lab Results Component Value Date ALT 19 03/08/2019 AST 17 03/08/2019 ALKPHOS 132 (H) 03/08/2019 BILITOT <0.2 (L) 03/08/2019 BILIDIR 0.1 03/08/2019 ALBUMIN 2.8 (L) 02/22/2024 PROT 6.4 03/08/2019 Lab Results Component Value Date HA1C 12.4 (H) 05/04/2019 Review Of Systems: Denies constitutional symptoms of fever, chills, sweats, fatigue. Neuro: denies ARMSTRONG, dizziness CV: Denies CP, SOB GI: denies N/V, diarrhea : Denies voiding issues Diet: good, eating 3 meals per day, getting protein Wound care: by nursing, at home to help Leg fatigue, calf cramping, skin itching: - Neuropathy: + Pain: 2/10 FBS today 110 PE: Vitals: BP 176/66 (BP Location (NBP): Right arm, Patient Position: Sitting, BP Cuff Sizes: Adult (25-34 cm)) Pulse 64 Temp 36.9 ??C (98.4 ??F) (Temporal) SpO2 95% Estimated body mass index is 27.26 kg/m?? as calculated from the following: Height as of 02/18/24: 177.8 cm (5' 10). Weight as of 02/18/24: 86.2 kg (190 lb). General: pleasant, in NAD. Arrive with remi Mobility: slide to chair Edema: trace to LBKA and right LE DP, PT pulses + dopper bilaterally Varicosities: - Hemosiderin staining: - Stasis dermatitis: - Callus:+ right heel Nails: trimmed 5.07 filament Porum Albert monofilament exam: 1/10 +LOPS Odor: none Skin warm to touch Wound Measurement (Initial) 03/09/24 Wound bed/ Thickness Periwound Drainage Odor Debridement Primary Dressing Secondary Dressing Left BKA 20cm well approximated incision Full Incision with scattered crusts, remi, stitches Mild erythema without warmth Light serous No Mechanical (irrigation/cleansing and gauze or wet-to-dry dressings) Mepilex Border (foam)No Secondary Dressing Right heel 6.6cm x 6.2cm x undetermined Full 85% black/brown eschar 10% white tissue 5% pink [place] with callus, dry skin Moderate serous No Surgical (sharps instrument or laser) Medihoney Alginate (Alginate) ([place] HD SuperLite)Silicone Bordered Dressing Right second toe intact blister- covered with adhesive bandage PHOTO taken today: Left BKA Right second toe blister Right heel Right medial heel Right posterior heel Wound treatment: Cleansed wound with NS / Wound cleansed with VASHE wound cleanser Analgesia: none Conservative sharp debridement was performed of the right heel. Devitalized tissue was removed using Iris scissors and Forceps, down to and including skin tissue and subcutaneous tissue to reveal healthier tissue. Total area of debridement was approx 10cm cm sq. Non-selective mechanical debridement of devitalized tissue of the left BKA using normal saline and gauze. Bleeding easily resolved with normal saline Patient tolerated treatment well. Dressing: as above Dermafit: single layer F applied to LBKA by vascular Assessment/ Plan: [...] recent A1c on file. Patient reports BG running 110's fasting. He is on dialysis 3 times per week. He is residing at [facility] rehab post surgery and is happy to report he is going home tomorrow. He has beenworking with PT while at rehab. Plan is continue PT via home health as well as VNA for wound monitoring. reports she can also help with dressing changes. He was started on Doxycycline for cellulitis on 03/01/24-03/12/24. He was assessed by Dr. Renae in Vascular today, note pending. Patient reports plan is pursue MRI of right heel and angiogram of right leg. They will see her again in 2 weeks. There are no signs of infection noted on exam today. Wound to right heel with mostly eschar. Periwound callus was pared. There is minimal erythema and dry skin. Initiated Medihoney alginate to promote autolytic debridement and for antimicrobial effects, followed by Mepilex border dressing for protection and exudate management. He has an unruptured blister to his right 2nd toe. This was covered withan adhesive bandage and a silicone toe separator was placed to offload toe. Surgical incision to his Left BKA is well approximated with scattered dried crusts. He has both stitches and remi in place. Periwound with mild erythema without warmth. Will continue to cover wound with surgical border dressing for moist wound healing and protection. He will have assistance with dressing changes from VNA and . We reviewed wound healing, signs of infection, offloading of right heel, tight glucose control and need for nutrition/protein support. He will RTC in 2-3 weeks for continued assessment. Verbal and written wound care instructions were provided. The patient will call with any questions or concerns. Plan: Wound care as above F/U Vascular 2 weeks MRI right foot per Dr. Renae (per pt report) Angiogram right leg per Dr. Renae (per pt report) Offloading of heel [facility] Plan of Care: Patient to return to [...] Beef, chicken, fish Beans, Lentils, peanut butter [place] and regular yogurt Cheese, eggs Boost, Ensure shakes Protein powder in a smoothie of your choice Monitor for signs of infection which may include: Fever Sweats Chills Nausea, Vomiting or Diarrhea Unexplained increase in Blood Glucose levels At or around the wound site: Increased pain Swelling or edema Redness Warmth Purulent drainage (thick yellow/green drainage) Malodor Contact the [facility] with any above symptoms Wednesday- Wednesday 8:00AM-4:30PM ([phone]). If weekends / holidays / evenings, please [...] taken care of by your physician or liquid waste treatment plant operator. Avoid using any chemical or strong antiseptic solutions on your feet. Iodine, salicylic acid, corn/callus removers may burn the skin. Wound care supplies ordered. Samples provided Cc: Glynn Esteves MD [address] [place] [address] [place] [address] PCP: Ken Greer MD documented in this encounter Plan of Treatment Scheduled Referrals Name Type Priority Associated Diagnoses Orde r Schedule Referral to Podiatry Outpatient Referral Urgent Ulcer of foot, unspecified laterality, unspecified ulcer stage Ordered: 02/18/2024 documented as of this encounter Visit Diagnoses Diagnosis Surgical wound present Status post below knee amputation, left Diabetic ulcer of right heel associated with diabetes mellitus due to underlying condition, with other ulcer severity Blister of second toe of right foot, initial encounter documented in this encounter Care Teams Shell Press Operator Relationship Specialty Start Date End Date Ken Greer MD PCP - General Family Medicine 12/30/23 05/15/24 documented as of this encounter
--- OUTSIDE RECORDS SUMMARY | 2024-12-05 12:38 | XMS_ITS | Encounter Summary ---
Author Organization [facility] [address] Care Team Providers Care Bread Stacker Name Role Phone Ken Greer MD Primary Care Provider [phone] Reason for Visit * Auth/Cert (Routine) Specialty Diagnoses / Procedures Referred By Nader gardiner Referred To Contact Diagnoses Wound infection Non-healing open wound of heel [place], Kristi Smith MD [facility] [place] [address] [facility] Referral ID Status Reason Start Date Expiration Date Visits Re quested Visits Authorized [id number] 1 1 Encounter Details Date Type Department Care Team (Late st Contact Info) Description 02/21/2024 3:59 PM EDT Anesthesia Event [place] [id number] Ismael Menchaca MD [facility] [place] [address] Hector Diaz MD Anesthesia Record Procedure Summary Procedure Name Responsible Anesthesiologist Anesthesia Start Time Anesthesia Stop Time @AMPUTATION, BELOW-KNEE (WRVU 15.37) (Left: Leg) Ismael Menchaca MD 02/21/24 1559 02/21/24 1812 Events Date Time Event Comment 02/21/2024 1544 1559 AN Verify 1559 Start 1610 An Start Data 1611 Quick Note Vanco restarted 1620 An Induction 1624 An Intubation 1626 Anesthesia Ready 1641 Procedure Start 1642 Break/Relief In I assumed ca re for Break Relief before which we: 1. Identified the patient 2. Identified the responsible provider(s) 3. Reviewed the pertinent medical history 4. Discussed the surgical plan and course 5. Reviewed intra-op anesthesia management and issues during anesthesia 6. Set expectations for the relief (and/or post-procedure) period 7. Allowed opportunity for questions and acknowledgement of understanding Amanda Esteves CRNA 1703 Quick Note 1 unit PRBCs in itiated 1710 Break/Relief Out 180 Extubation/LMA Out 180 an stop data 180 Recovery or ICU Handoff Annemarie ent care was transferred to the destination unit staff after review of the patient's medical history, current anesthetic/surgical status and plan, according to the Provider Handoff Checklist. 181 Stop Meds Name Total IV Lidocaine 30 mg Propofol 200 mg Rocuronium 40 mg Ondansetron 4 mg BUpivacaine 0.25% 30 mL PHENYLephrine INF 3,040 mcg sugammadex 200 mg piperacillin-tazobactam (Zos yn) 3.375 g vial attach to sodium chloride 0.9% 50 mL Mini-Bag Plus 3.375 g lactated ringers 200 mL * Agents Name O2 Sevoflurane (et) * Blood No blood administrations on file. [...] leg 02/21/24 1638 by Juana Mcduffie RN PIV [id number] catheter system; 18 gauge; cephalic vein (lateral side of arm), right; Anatomical Landmarks; RMoonen; tolerated well; LDA not present upon assessment; 02/22/24; 1250 02/21/24 1701 by 02/22/24 1250 by Osiel Haney RN PIV 02/20/24; 1821; [id number]-[id number] catheter system; 22 gauge, 1.75 in length; cephalic vein (lateral side of arm), right; Ultrasound Guidance; Yes - US guidance used but Image NOT saved; MLS; distraction, appears comfortable, tolerated well; 0; 03/10/24; 1000 02/20/24 1821 by Naun Randolph RN 03/10/24 1000 by Bernie Alfaro RN PIV 02/20/24; 2019; [id number]-nnbjaj catheter system; 20 gauge, 1 in length; cephalic vein (lateral side of arm), right; Anatomical Landmarks; Marck ANGEL RN; distraction, tolerated well; 0; 02/22/24; 1136 02/20/24 2019 by Carmen Acharya RN 02/22/24 1136 by Sara Pang RN Nerve Block Catheter 02/21/24; left; 03/13/24; 0100 02/21/24 0000 by Karli Fletcher RN 03/13/24 0100 by Bernie Alfaro RN ETT Mask Ventilation: Ea arely (1); ETT Type: Cuffed, Oral; ETT Size: 7.5 mm; Mac Blade: 4; Notes: Asleep, Pre-O2, Stylette; Attempts: 1; Laryngoscopy Grade: 1; ETT Placement Verified By: Auscultation, Capnometry; Secured at Teeth: 22 cm; Inserted by: Margie Hinson CRNA; Removal Date: 02/21/24; Removal Time: 180002/21/24 162 by Margie Hinson CRNA 02/21/24 180 by Margie Hinson CRNA documented in this encounter Social History [...] in a custodial (including now)? No 02/20/2024 DH IPV Inpatient [...] OR Notes * Anesthesia Postprocedure Evaluation - Ismael Menchaca MD - 02/21/2024 6:52 PM EDT Department of Anesthesiology Post-procedure Note Patient: Gerson Bruner Procedure Summary Date: 02/21/24 Room / Location: [facility] OR [address] [place] [address] MAIN OR Anesthesia Start: 1558 Anesthesia Stop: 1811 Procedure: AMPUTATION, BELOW-KNEE, SECONDARY CLOSURE OR [facility] (Left: Leg) Diagnosis: (Left guillotine amputation) Surgeons: Kristi Renae MD Responsible Provider: Ismael Menchaca MD Anesthesia Type: general ASA Status: 3 All Anesthesia Providers: Anesthesiologist: Ismael Menchaca MD HISTORIC SITES SUPERVISOR: Margie Hinson CRNA Vitals Value Taken Time BP 135/64 02/21/24 1845 Temp 36.2 ??C (97.2 ??F) 02/21/24 1805 Pulse 67 02/21/24 1851 Resp 17 02/21/24 1851 SpO2 83 % 02/21/24 1850 Pain Level 0 02/21/24 1805 Vitals shown include unfiled device data. Patient Location: PACU/[facility] Level of Consciousness: Awake and Alert Pain Management: Satisfactory Analgesia PONV: None Cardiovascular Status: At Baseline and Hemodynamically Stable Respiratory Status: At Baseline and Room Air Postoperative Fluid Status: Intravascular EUvolemia Possible Anesthetic Complications: NONE apparent at time of evaluation Final Primary Anesthesia Type: General (The anesthetic type performed was the same as planned.) Comments: * Anesthesia Procedure Notes - Jas Anglin MD - 02/21/2024 4:05 PM EDT Associated Order(s): Anesthesia Block Anesthesia Block Date/Time: 02/21/2024 3:45 PM Start Time: 02/21/2024 3:45 PM End Time: 02/21/2024 4:00 PM Patient Location: Block Room The patient was greeted; the risks and benefits of the procedure were reviewed. Indication: Post-op Pain Control Post-op pain management at the request of surgeon. Block Type: Saphenous nerve block/mid thigh and sciatic sciatic/ popliteal nerve block Laterality: Left Position: Supine Prep: Chlorhexidine, patient draped and mask, cap, sterile gloves, hand hygeine Skin Anesthetic: Skin Anesthetic: Lidocaine 1% dose: 5 Block Technique: tuohy 17 and 21 10 cm Ultrasound Guided: YES and in-plane Ultrasound Image Saved Catheter Tip Depth: 12 Continuous: Continuous Local Anesthetic Volume(s) Injected for Nerve Block: BUpivacaine 0.25% - Perineural 30 mL - 02/21/2024 3:45:00 PM Nerve Sensory/MotorTest: Events: no complications Notes: Target structures, needle, and local anesthetic spread were visualized under US guidance for the duration of the procedure. No blood aspirated, no pain on injection, no paresthesias. No needle to nerve contact was observed on ultrasound. 15 ml given near sciatic bifurcation on posterior knee (popliteal nerve block) via Touhy. 5 cc given via catheter with good spread visualized with color doppler. 10 ml given in adductor canal on mid medial thigh (saphenous nerve block) Performed by: Resident/HISTORIC SITES SUPERVISOR: Jas Anglin MD Fellow: Hector Diaz MD Attending Physician: Ismael Menchaca MD Authorized by: Ismael Menchaca MD * Anesthesia Preprocedure Evaluation - Jas Anglin MD - 02/21/2024 3:24 PM EDT Images from the original note were not included. Pre-Anesthesia Evaluation for: Gerson Bruner a 58 y.o. male. Procedure(s): AMPUTATION, BELOW-KNEE, SECONDARY CLOSURE OR SCAR REVISION (WRVU 8.76) Patient Active Problem List Diagnosis Date Noted *Non-healing open wound of heel 02/18/2024 TIA (transient [...] Past Surgical History: Procedure Laterality Date PRO ANASTOMOSIS, AV, ANY SITE Left 09/05/2018 AV FISTULA CREATION, DIRECT HEMODIALYSIS, ANY SITE, EG GABRIEL FISTULA UPPER EXTREMITY (WRVU 11.9) performed by Scout Reese MD at [facility] MAIN OR PRO COLONOSCOPY, REMV LESN, SNARE N/A 09/26/2019 COLONOSCOPY, POLYPECTOMY, REMOVAL LESION BY SNARE (WRVU 4.67) performed by Kaye Gibbs MD at [facility] ENDOSCOPY Social History Tobacco Use Smoking status: Light Smoker Packs/day: .25 Types: Cigarettes Last attempt to quit: 12/26/2018 Years since quittin.1 Smokeless tobacco: Never Tobacco comments: smoking a few a day Substance Use Topics Alcohol use: No Social History Substance and Sexual Activity Drug Use Yes Types: Marijuana Comment: multiple times daily Allergies Allergen Reactions Clindamycin Swelling. Gabapentin swelling Zoloft [Sertraline] Other reaction(s): Unsure Medications: MAR and/or home medications have been reviewed. Physical Exam: Preprocedure Vitals Current as of 02/21/24 1524 BP: 157/75 Pulse: 66 Resp: 18 SpO2: 96 Temp: 36.7 ??C (98.1 ??F) Height: 177.8 cm (5' 10) (02/18/24) Weight: 86.2 kg (190 lb) (02/18/24) BMI: 27.26 IBW: 73 kg (160 lb 15 oz) Last edited 02/21/24 1316 by AL Currently displaying vitals information from multiple entries within 180 minutes of most recent vitals. Airway Assessment: Mallampati: II TM distance: >3 FB Neck ROM: full Cardiovascular Assessment: system normal Pulmonary Assessment: pulmonary exam normal Dental Assessment: (+) upper dentures Misc Assessment: Last Filed Perioperative Cognitive Screening None Anesthesia Plan: ASA 3 general, Gerson Bruner is a 58 y.o. 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 PMHx: HTN, HLD, T2DM, tobacco use, ESRD on iHD (MWF, last dialysis session today 02/20) with severe PVD NPO adequate. No other recent illnesses/fevers. Activity tolerance: METS>4. Anesthesia Hx: Past airway: G1V Mac3 01/2024. No prior issues with anesthesia. ECHO 02/2019: SUMMARY: 1. There is normal [...] See remainder of report for additional findings. Labs (reviewed): Hgb: 8.0 Plt: 510 Cr: 8.39 (prior to dialysis) Plan is for GA with ETT, block +/- catheter Jas Anglin MD 02/21/2024 Informed Consent: Anesthetic plan and risks discussed with patient. Plan discussed with resident and attending. Anesthesia Screening documented in this encounter Plan of Treatment Not on file documented as of this encounter Procedures Procedure Name Priority Date/Time Associated Diagnosis Comments ANESTHESIA BLOCK Routine 02/21/2024 3:45 PM EDT documented in this encounter Results * Anesthesia Block (02/21/2024 3:45 PM EDT) Narrative Ismael Menchaca MD - 02/21/2024 3:45 PM EDT Jas Anglin MD ? 02/21/2024 ??4:08 PM Anesthesia Block Date/Time: 02/21/2024 3:45 PM Start Time: ??02/21/2024 3:45 PM End Time: ??02/21/2024 4:00 PM Patient Location: ??Block Room The patient was greeted; the risks and benefits of the procedure were reviewed. ?? Indication: ??Post-op Pain Control Post-op pain management at the request of surgeon. ?? Block Type: ??Saphenous nerve block/mid thigh and sciatic sciatic/ popliteal nerve block Laterality: ??Left Position: ??Supine Prep: ??Chlorhexidine, patient draped and mask, cap, sterile gloves, hand hygeine Skin Anesthetic: ??Skin Anesthetic: ??Lidocaine 1% ??dose: ??5 Block Technique: ?? tuohy ?? 17 and 21 ?? 10 cm ??Ultrasound Guided: ??YES and in-plane ??Ultrasound Image Saved ?Catheter Tip Depth: ??12 ??Continuous: ??Continuous Local Anesthetic Volume(s) Injected for Nerve Block: ?? BUpivacaine 0.25% - Perineural 30 mL - 02/21/2024 3:45:00 PM Nerve Sensory/MotorTest: ??Events: no complications ?? Notes: ?? Target structures, needle, and local anesthetic spread were visualized under US guidance for the duration of the procedure. No blood aspirated, no pain on injection, no paresthesias. No needle to nerve contact was observed on ultrasound. 15 ml given near sciatic bifurcation on posterior knee (popliteal nerve block) via Touhy. ??5 cc given via catheter with good spread visualized with color doppler. 10 ml given in adductor canal on mid medial thigh (saphenous nerve block) Performed by: ?? Resident/HISTORIC SITES SUPERVISOR: ? Jas Anglin MD ?? Fellow: ?Hector Diaz MD ?? Attending Physician: ? Ismael Menchaca MD Authorized by: Ismael Menchaca MD ?? Ismael Menchaca MD RELAY REPAIRER [facility] documented in this encounter Visit Diagnoses Not on filedocumented in this encounter Administered Medications Inactive Administered Medications - up to 3 most recent administrations Medication Order MAR Action Action Date Dose Rate Site BUpivacaine (Marcaine) (2.5 mg/mL) 0.25% bolus injection (Anesthesia) Perineural, Starting on Wed02/21/24 at 1545, Until Wed02/21/24 at 1545, Anesthesia Intra-op, Routine Given 02/21/2024 3:45 PM EDT 30 mLs lactated ringers infusion Intravenous, CONTINUOUS PRN, Starting on Wed02/21/24 at 1620, Until Wed02/21/24 at 1812, Anesthesia Intra-op New Bag 02/21/2024 4:20 PM EDT lidocaine (pf) (Xylocaine) (20 mg/mL) 2% injection syringe Intravenous, PRN, Starting on Wed02/21/24 at 1620, Until Wed02/21/24 at 1812, Anesthesia Intra-op, Routine Given 02/21/2024 4:20 PM EDT 30 mg ondansetron (pf) (Zofran) (2 mg/mL) injection Intravenous, PRN, Starting on Wed02/21/24 at 1748, Until Wed02/21/24 at 1812, Anesthesia Intra-op, Routine Given 02/21/2024 5:48 PM EDT 4 mg PHENYLephrine (Escobar-Synephrine) (80 mcg/mL) in sodium chloride 0.9% 250 mL infusion Intravenous, CONTINUOUS PRN, Starting on Wed02/21/24 at 1632, Until Wed02/21/24 at 1812, Anesthesia Intra-op, Routine New Bag 02/21/2024 4:32 PM EDT 40 mcg/min 30 mL/hr piperacillin-tazobactam (Zosyn) 3.375 g vial attach to sodium chloride 0.9% 50 mL Mini-Bag Plus 3.375 g, Intravenous, EVERY 12 HOURS, First dose (after last modification) on 02/19/24 at 1723, Until Discontinued, Administer over 4 Hours, Warning Vesicant/Irritant Medication Do not administer or Y-site with lactated ringers. renal adjusted per P*T renal dosing policy, Indication for (Active or Suspected): Skin/Skin Structure New Bag 02/24/2024 5:59 AM EDT 3.375 g 12.5 mL/hr New Bag 02/23/2024 5:13 PM EDT 3.375 g 12.5 mL/hr New Bag 02/23/2024 5:21 AM EDT 3.375 g 12.5 mL/hr propofoL (Diprivan) 10 mg/mL bolus injection (Anesthesia) Intravenous, PRN, Starting on Wed02/21/24 at 1620, Until Wed02/21/24 at 1812, Anesthesia Intra-op Given 02/21/2024 4:23 PM EDT 50 mg Given 02/21/2024 4:20 PM EDT 150 mg rocuronium (Zemuron) (10 mg/mL) multi-dose injection Intravenous, PRN, Starting on Wed02/21/24 at 1623, Until Wed02/21/24 at 1812, Anesthesia Intra-op, Routine Given 02/21/2024 4:23 PM EDT 40 mg sugammadex (Bridion) 100 mg/mL injection Intravenous, PRN, Starting on Wed02/21/24 at 1753, Until Wed02/21/24 at 1812, Anesthesia Intra-op, Routine Given 02/21/2024 5:53 PM EDT 200 mg documented in this encounter Care Teams Bread Stacker Relationship Specialty Start Date End Date Ken Greer MD PCP - General Family Medicine 12/30/23 05/15/24 documented as of this encounter
--- OUTSIDE RECORDS SUMMARY | 2024-12-05 12:38 | XMS_ITS | Encounter Summary ---
Author Organization [facility] [place] [address] Care Team Providers Care Hardboard Grinder Name Role Phone Ken Greer MD Primary Care Provider [phone] Encounter Details Date Type Department Care Team (Late st Contact Info) Description 02/22/2024 11:59 PM EDT Anesthesia Event Surgical Unit Level [address] [place] [phone] Hector Diaz MD Anesthesia Record Procedure Summary Procedure Name Responsible Anesthesiologist Anesthesia Start Time Anesthesia Stop Time Acute Pain Medicine Service (consult) Events No events on file. Meds * Agents No agents on file. * Blood No blood administrations on file. Lines, Drains, and Airways No LDAs on file. documented in this encounter Social History Tobacco [...] a senior care (including now)? No 02/20/2024 DH IPV Inpatient [...] on filedocumented in this encounter Care Teams Hardboard Grinder Relationship Specialty Start Date End Date Ken Greer MD PCP - General Family Medicine 12/30/23 05/15/24 documented as of this encounter
--- OUTSIDE RECORDS SUMMARY | 2024-12-05 12:38 | XMS_ITS | Encounter Summary ---
Author Organization [facility] [place] [address] Care Team Providers Care Conveyor Monitor Name Role Phone Ken Greer MD Primary Care Provider [phone] Reason for Visit * Reason Comments Wound Check * Auth/Cert (Routine) Specialty Diagnoses / Procedures Referred By Nader gardiner Referred To Contact Diagnoses Wound infection Non-healing open wound of heel Ari Renae MD [facility] [place] [address] [facility] Referral ID Status Reason Start Date Expiration Date Visits Re quested Visits Authorized [id number] 1 1 Encounter Details Date Type Department Care Team (Latest Contact Info) Description 02/18/2024 2:12 PM EDT - 02/25/2024 4:05 PM EDT Hospital Encounter Surgical Unit Level 4 [place] [id number] Ari Renae MD [facility] [address] Wound infection; CKD (chronic kidney disease) stage 5, GFR less than 15 ml/min Discharge Disposition: Rehab Center in a Facility Social History Tobacco Use Types Packs/Day Years [...] Sign Reading Time Taken Comments Blood Pressure 153/73 02/25/2024 11:00 AM EDT Pulse 62 02/25/2024 11:00 AM EDT Temperature 37 ??C (98.6 ??F) 02/25/2024 11:00 AM EDT Respiratory Rate 17 02/25/2024 3:38 AM EDT Oxygen Saturation 94% 02/25/2024 11:00 AM EDT Inhaled Oxygen Concentration - - Weight 86.2 kg (190 lb) 02/18/2024 2:06 PM EDT Height 177.8 cm (5' 10) 02/18/2024 7:20 PM EDT Body Mass Index 27.26 02/18/2024 2:06 PM EDT documented in this encounter Discharge Summaries * Ruby Mcgill APRN - 02/25/2024 1:13 PM EDT Images from the original note were not included. Inpatient - Discharge Summary Patient Name: Greson Bruner Patient Age: 58 y.o. Birthdate: 1965 Admit date: 02/18/2024 Discharge date and time: 02/25/2024 Attending Physician: Ari Renae MD Discharging Provider: Ruby Mcgill APRN Discharging Service: Vascular Surgery Operations/Major Procedures: 02/18/24: L through ankle guillotine amputation. 02/21/24: L below knee amputation Active Hospital Problems: Active Hospital Problems Diagnosis Non-healing open wound of heel Postoperative anemia due to acute blood loss Resolved Hospital Problems No resolved problems to display. Active Non Hospital Problems: Active Non-Hospital Problems Diagnosis TIA (transient ischemic attack) Right sided numbness [...] 58 y.o. male with past medical history significant for end- stage renal disease on HD (last HD 02/18/2024), TIA (2018, thought to be secondary to small vessel disease), and diabeteswho presents with bilateral heel ulcers, left worse than right. The patient estimates that these have been here for approximately 1 to 2 months, and he follows with a paper final inspector for these. He presented to [facility] yesterday after noting fevers and after his VNA identified worsening redness of the left foot. The patient denies any increased pain, numbness, or tingling. He states that at baseline he does not ambulate much. The patient has not had any vascular interventions in the past, although he has been evaluated by avascular surgeon at [facility] who determined that he does not have any indication for revascularization based on his toe pressures. The patient takes Eliquis at baseline for A-fib, however he ran out approximately 1 week ago and has not taken it during that time. Hospital Course: Patient admitted to Vascular Surgery. Orthopedics was consulted for possible amputation but decision made to have this occur with Vascular Surgery and Orthopedics signed off. Nephrology consulted forinpatient HD needs. Patient taken to OR for above procedure: Findings: Left foot with gangrenous calcaneal and left lateral foot ulcer. Guillotine amputation performed through the ankle Patient readmitted for post operative observation. Patient remained HDS and afebrile. Diabetes management team was consulted for recommendations for FSBS/Insulin. BIT was consulted as patient struggling with amputation closure which will require a below knee completion. To OR for completion amputation on 02/21/24 and patient readmitted for post operative observation and management. Patient remained afebrile and HDS, tolerating PO, voiding adequate amount post quiñones removal. Patient continued to have HD 3x weekly M W F. Sterile operative dressing removed on 02/24/24, incision without erythema or drainage, IV antibiotics discontinued. Patient continued to be followedby BIT. Patient worked with PT OT who recommend discharge to rehab when medically ready. He will require total of 30 days DVT ppx with Heparin 500u TID at discharge. He will return in 2 weeks for wound check. PHYSICAL EXAM: General: NAD, resting comfortably HEENT: Normocephalic, atraumatic Heart:: regular rate Pulmonary: non-labored breathing Abdomen: soft, ND Neuro: no focal deficits Extremities: RLE: Edematous, eschar on heel with no evidence of drainage, small amount of surrounding erythema, painted with betadine LLE: Dressing taken down and incision site is well approximated, clean, dry, no active drainage or erythema or hematoma. Dressing replaced with Kerlix and JA Important Studies and Lab Data: Labs: CBC Lab Results Component Value Date WBC 12.7 (H) 02/25/2024 Hemoglobin 8.4 (L) 02/25/2024 Hematocrit 26.6 (L) 02/25/2024 Platelets 482 (H) 02/25/2024 Lab Results Component Value Date Sodium 137 02/25/2024 Potassium 5.1 (H) 02/25/2024 Chloride 98 02/25/2024 CO2 26 02/25/2024 BUN 32 (H) 02/25/2024 Creatinine 6.92 (H) 02/25/2024 Glucose Lvl 194 02/25/2024 Discharge Condition: stable Discharge to: [facility] [address] [place] [address] Future Appointments and Orders Future Appointments and Orders Future Appointments Provider Department Dept Phone 03/09/2024 3:00 PM Apurva Crowley APRN Wound Care at [facility] Arrive at: [facility] [employer] [facility] [phone] Anticoagulation & Antiplatelet: Anticoagulation: Agent: Heparin 500u SQ Indication: DVT ppx Intended Duration: through 03/22/24 Antiplatelet: Agent: ASA Indication: ASCVD Intended Duration: lifelong For questions regarding these medications, please contact: vascular Surgery Discharge Medications: Your Medications New Medications Dose Details acetaminophen 325 mg tablet Commonly known as: Tylenol Take 3 tablets by mouth every 6 hours. 975 mg Quantity: 30 tablet Refills: 1 calcium carbonate 200 mg calcium (500 mg) chewable tablet Commonly known as: TUMS Take 1 tablet by mouth 3 times daily (with meals). 500 mg Quantity: 90 tablet Refills: 0 cholecalciferol 1,000 unit tablet Commonly known as: Vitamin [...] 15 Units Quantity: 1 mL Refills: 0 * insulin lispro 100 unit/mL Solution Commonly known as: HumaLOG Inject 0-6 Units subcutaneously every 4 hours. Replaces: humaLOG KwikPen 100 unit/mL Insulin Pen 0-6 Units Quantity: 1 mL Refills: 12 * insulin lispro 100 unit/mL Solution Commonly known as: HumaLOG Inject 0-8 Units subcutaneously 3 times daily (with meals). 0-8 Units Quantity: 1 mL Refills: 12 oxyCODONE 5 mg tablet Commonly known as: Roxicodone Take 1 tablet by mouth every 4 hours as needed for Pain (moderate pain (4-6)). 5 mg Quantity: 20 tablet Refills: 0 pantoprazole EC [address] tablet Commonly known as: Protonix Take 1 tablet by mouth daily. 40 mg Quantity: 90 each Refills: 3 tiZANidine 2 mg tablet Commonly known as: Zanaflex Take 2 tablets by mouth every 8 hours as needed. 4 mg Quantity: 30 tablet Refills: 0 vitamin B Complex-vitamin C-folic Acid 0.8 mg Tablet Commonly known as: Megan-meggan Take 1 tablet by mouth daily. 1 tablet Quantity: 30 tablet Refills: 0 * This list has 2 medication(s) that are the same as other medications prescribed for you. Read thedirections carefully, and ask your doctor or other care provider to review them with you. Continued medications, unchanged Dose Details amLODIPine 10 mg tablet Commonly known as: [...] 12.5 mg Quantity: 60 tablet Refills: 11 pregabalin 100 mg capsule Commonly known as: Lyrica Take 100 mg by mouth 2 times daily. 100 mg Refills: 0 sevelamer 800 mg tablet Commonly known as: Renagel 2 tablets, 3 times a day with each meal Quantity: 180 tablet Refills: 5 STOPPED Medications blood sugar diagnostic strips Strip Commonly known as: SwishTouch Ultra Test flash glucose sensor Kit Commonly known as: FreeStyle Derick 14 Day Sensor FreeStyle Derick 14 Day [place] Misc Generic drug: flash glucose scanning reader furosemide 80 mg tablet Commonly known as: Lasix humaLOG KwikPen 100 unit/mL Insulin Pen Generic drug: insulin lispro Replaced by: insulin lispro 100 unit/mL Solution hydrALAZINE 25 mg tablet Commonly known as: Apresoline insulin detemir U-100 100 unit/mL (3 mL) Insulin Pen Commonly known as: Levemir insulin needles (disposable) 31 gauge x 5/16 Needle lancets Misc lidocaine-prilocaine Cream Commonly known as: EMLA multivitamin Tablet Commonly known as: THERAGRAN nortriptyline 25 mg capsule Commonly known as: Pamelor ranitidine 150 mg tablet Commonly known as: Zantac Updated Allergies/ADRs: Allergies Allergen Reactions Clindamycin Swelling. Gabapentin swelling Zoloft [Sertraline] Other reaction(s): Unsure Follow-up Recommendations for Providers: 2 week wound check Instructions Given to Patient at Discharge: Patient Instructions Patient Instructions You were admitted after having left below knee amputation. All of this went very well. Your physician will want you to be seen in approximately two weeks for a wound check.. All of this will be ordered and sent to you in the mail. If for some reason you don't receive this within a week or so pleasecall our office as your followup is very important. You will need to continue to have Heparin injections 3x per day to prevent blood clots post surgery. This will stop on 03/22/24. Call your doctor if: Any fever, any drainage, redness or separation of your incision. Activity level: up as tolerated but watch for swelling of your leg. Diet: resume your previous diabetic diet Driving: none Shower/Bath: ok to shower and wash all incisions under running water, pat dry. No soaking in a pool/bath/hottub for 2-4 weeks Wound Care: Right heel should be painted with betadine daily and wrap in kerlix. keep stump wrappedwith kerlix, PLEASE DO NOT HAVE PILLOW UNDERNEATH KNEE TO HELP PREVENT CONTRACTURE OF THE KNEE. For any problems or questions please call [phone] For issues on weeknights after 5pm and weekends please call [phone] and ask for the Vascular Fellow finance and administration manager. documented in this encounter Discharge Instructions * Patient Instructions* Ruby Mcgill APRN - 02/25/2024 11:53 AM EDT Patient Instructions You were admitted after having left below knee amputation. All of this went very well. Your physician will want you to be seen in approximately two weeks for a wound check.. All of this will be ordered and sent to you in the mail. If for some reason you don't receive this within a week or so pleasecall our office as your followup is very important. You will need to continue to have Heparin injections 3x per day to prevent blood clots post surgery. This will stop on 03/22/24. Call your doctor if: Any fever, any drainage, redness or separation of your incision. Activity level: up as tolerated but watch for swelling of your leg. Diet: resume your previous diabetic diet Driving: none Shower/Bath: ok to shower and wash all incisions under running water, pat dry. No soaking in a pool/bath/hottub for 2-4 weeks Wound Care: Right heel should be painted with betadine daily and wrap in kerlix. keep stump wrappedwith kerlix, PLEASE DO NOT HAVE PILLOW UNDERNEATH KNEE TO HELP PREVENT CONTRACTURE OF THE KNEE. For any problems or questions please call [phone] For issues on weeknights after 5pm and weekends please call [phone] and ask for the Vascular Fellow finance and administration manager. * Attachments The following attachments cannot be sent through Care Everywhere. * Blood Transfusions: General Info (Sri Lankan) documented in this encounter Medications at Time of Discharge Medication Sig Dispensed Refills Start Date End Date insulin detemir U-100 (Levemir U-100 Insulin) 100 unit/mL Solution Inject subcutaneously. 12/19/2022 insulin lispro (HumaLOG) 100 unit/mL Solution Inject 0-6 Units subcutaneously every 4 hours. 1 mL 12 02/25/2024 03/13/2024 insulin lispro (HumaLOG) 100 unit/mL Solution Inject 0-8 Units subcutaneously 3 times daily (with meals). 1 mL 12 02/25/2024 03/13/2024 acetaminophen (Tylenol) 325 mg tablet Take 3 tablets by mouth every 6 hours. 30 tablet 1 02/25/2024 03/13/2024 cholecalciferol (Vitamin D3) 1,000 unit tablet Take 1 tablet by mouth daily. 90 tablet 3 02/25/2024 03/14/2024 dilTIAZem CD (Cardizem CD) 120 mg CD (ER) 24 hr casule Take 1 capsule by mouth daily. 30 capsule 02/25/2024 03/13/2024 heparin, porcine, 5,000 unit/mL Solution Inject 1 mL subcutaneously every 8 hours for 26 days. 78 mL 02/25/2024 03/13/2024 insulin glargine-yfgn (Semglee) 100 unit/mL Solution Inject 15 Units subcutaneously daily. 1 mL 02/25/2024 03/13/2024 tiZANidine (Zanaflex) 2 mg tablet Take 2 tablets by mouth every 8 hours as needed. 30 tablet 02/25/2024 03/13/2024 pantoprazole EC (Protonix) [address] tablet Take 1 tablet by mouth daily. 90 each 3 02/25/2024 03/14/2024 vitamin B Complex-vitamin C-folic Acid (Megan-meggan) 0.8 mg Tablet Take 1 tablet by mouth daily. 30 tablet 02/25/2024 03/13/2024 oxyCODONE (Roxicodone) 5 mg tablet Take 1 tablet by mouth every 4 hours as needed for Pain (moderate pain (4-6)). 20 tablet 02/25/2024 03/13/2024 calcium carbonate (TUMS) 200 mg calcium (500 mg) chewable tablet Take 1 tablet by mouth 3 times daily (with meals). 90 tablet 02/25/2024 03/09/2024 sevelamer (Renagel) 800 mg TabletIndications:ES RD (end stage renal disease) 2 tablets, 3 times a day with each meal 180 tablet 5 06/06/2021 03/14/2024 carvediloL (Coreg) 12.5 mg TabletIndications:ES RD (end stage renal disease) Take 1 tablet by mouth 2 times daily (with meals). 60 tablet 11 08/16/2020 03/14/2024 atorvastatin (LIPITOR) 40 mg Tablet Take 1 tablet by mouth every evening. 90 tablet 3 07/11/2019 03/14/2024 aspirin 81 mg Tablet, Chewable Take 81 mg by mouth daily. 30 tablet 3 07/11/2019 03/13/2024 amLODIPine (NORVASC) 10 mg TabletIndications:CK D (chronic kidney disease) stage 4, GFR 15-29 ml/min Take 1 tablet by mouth daily. 90 tablet 3 07/04/2018 03/14/2024 pregabalin (LYRICA) 100 mg CapsuleIndications:C KD (chronic kidney disease) stage 3, GFR 30-59 ml/min,Other specified diabetes mellitus with unspecified complications,Essent ial hypertension with goal blood pressure less than 130/80,Hyperkalemia Take 100 mg by mouth 2 times daily. 03/14/2024 documented as of this encounter Progress Notes * Jordan Sepulveda MD - 02/25/2024 4:05 PM EDT HYPERTENSION/ NEPHROLOGY PROGRESS NOTE PATIENT: Gerson Bruner : 1965 REASON FOR CONSULTATION: ESRD 58-year-old gentleman status post left B-K amputation. Seen and examined on hemodialysis multiple times to adjust ultrafiltration rate. Seen and examined independently as well as later with the renal fellow Blood pressures have been stable. Access left upper limb AV fistula which has been working well. Continues to have left upper lung swelling but stable. Patient was on antibiotics so was not given Venofer earlier, he could potentially benefit with IV Venofer at his home dialysis unit after being discharged. He is on EPO for his anemia. Continue sevelamer for hyperphosphatemia. He can continue dialysis with his home dialysis unit after discharge. * Natalie Marvin - 02/25/2024 11:56 AM EDT Office of Care Management/Vending Route Driver Name: Gerson Bruner Presenting Issue: Outpatient Dialysis Update RS Notified [facility] HD (Spoke w/VIDYA Flores) unit that patient is scheduled for discharge soon. The dialysis unit is ready for the patient on 02/28/2024 @ 0615am The patient will have a schedule of MWF at 0630 Plan: Discharge Summary and last acute dialysis records will be faxed to the miner operator upon discharge. This office will be available to the patient, Marine Tower Operator-RN and City Engineer for further assistance. Dialysis Unit Address: [facility] [address] [place] [address] Natalie Marvin Vending Route Driver * Natalie Marvin - 02/25/2024 11:44 AM EDT Office of Care Management/Vending Route Driver Patient Name: Gerson Bruner : 1965 Patient has been offered a SNF bed at [facility] Patient will be transported via private vehicle Ambulance will need: Medicare ambulance form completed and signed (MD or Marine Tower Operator RN/CALTRANS EQUIPMENT OPERATOR) Copy of patient demographics [place] Out of Hospital DNR/DNI order, if active No MD to MD report necessary Please call Nursing Report to , ask for miner operator. Info to accompany patient: Copies of Medication Administration Records and IV sheets for past 10 days. Plan: Vending Route Driver will be available to the patient and Marine Tower Operator-RN and/or Social Workerfor further assistance. Patient will be discharged to: [address] [address] [facility] Herman Machado * Renu Gil APRN - 02/25/2024 10:27 AM EDT Follow Up Diabetes Consult Patient Interview Spent time today reviewing patient's glucose levels, insulin use and chart notes. Reviewed recommendations with patient . Patient's states that patient usually takes his glargine at the end of the day. Objective Temp: [36.8 ??C (98.2 ??F)-37.6 ??C (99.7 ??F)] Heart Rate: [62] Resp: [17] BP: (141-173)/(67-78) SpO2: [90 %-96 %] Heart Rate from SpO2: [63 bpm-71 bpm] Current Regimen from previous note 1. Lantus 10 units daily 2. Lispro custom correction scale of 1:30>150 3. Lispro 1unit: 15 gm carb ratio for each meal Recent Glucose Levels Recent Labs 02/25/24 1000 02/25/24 0338 02/24/24 2333 02/24/24 2015 02/24/24 1613 02/24/24 1205 02/24/24 0744 02/24/24 0401 02/23/24 2355 02/23/24 1933 02/23/24 1648 02/23/24 1506 POCGLU 113 163 214* 225* 210* 147 114 106 93 103 129 113 ASSESSMENT Patient is a 58 y.o. years old male with PMH significant for DM (Last A1C of 11.6%) who was admitted on 02/18/2024 for Non-healing wound of heel. Diabetes uncontrolled and currently complicated by unknown insulin requirement. Currently with variability of blood glucose levels while hospitalized requiring adjustment of insulin regimen and DM medications. Yesterday patient got 9 units of correction. Increase glargine to 15 units. Patient got glargine at noon today. Pushed it back to supper for tomorrow (Wednesday) Recommend to be given at bedtime on Wednesday) Change carb ratio to 1:10 PLAN 1. Lantus 15 units with dinner - to start wednesday 2. Lispro custom correction scale of 1:30>150 3. Lispro 1unit: 10 gm carb ratio for each meal Renu Gil APRN [facility] Diabetes Management Pager [phone] minute visit was spent evaluating diabetes and treatment plan, reviewing all glucose and insulindata as well as relevant laboratory results , and coordination of care on the inpatient unit including nursing and primary team. * Mary Kenny MD - 02/24/2024 1:23 PM EDT Images from the original note were not included. [facility] NEPHROLOGY/HYPERTENSION DIALYSIS PROGRESS NOTE PATIENT: Gerson Bruner : 1965 Ken Greer MD REASON FOR CONSULTATION: ESRD Management INTERVAL HISTORY: S/p L BKA Patient seen and examined at bedside. He was seen working with OT earlier today as well. He reportspain at site of surgery is better today. He is planned for dialysis on Saturday 02/24 ROS: 4 point review of sytem was done, everything was negative except for what was mentioned above. INTAKE/OUTPUTS: Intake/Output Summary (Last 24 hours) at 02/24/2024 1323 Last data filed at 02/24/2024 1118 Gross per 24 hour Intake 380 ml Output 0 ml Net 380 ml MEDICATIONS: insulin lispro 0-6 Units Subcutaneous Q4H PAULIE insulin lispro 0-8 Units Subcutaneous TID insulin glargine (Lantus;Semglee) (100 unit/mL) subcutaneous injection 10 Units Subcutaneous Daily polyethylene glycoL (MIRALAX) oral powder 17 g Oral Daily senna-docusate 2 tablet Oral BID acetaminophen 975 mg Oral Q6H PAULIE carvediloL 12.5 mg Oral BID vitamin B Complex-vitamin C-folic Acid 1 tablet Oral Daily cholecalciferol 1,000 Units Oral Daily calcium carbonate 500 mg Oral TID amLODIPine 10 mg Oral Daily aspirin 81 mg Oral Daily atorvastatin 40 mg Oral QPM pregabalin 100 mg Oral BID sodium chloride 0.9 % (flush) 5 mL Intravenous BID heparin (porcine) 5,000 Units Subcutaneous Q8H [facility] sevelamer carbonate 1,600 mg Oral TID dilTIAZem CD 120 mg Oral Daily Vasoactive/Sedating Meds: VITALS: Last value Range last 24 hrs Temperature Temp: 37 ??C (98.6 ??F) Temp: [36.8 ??C (98.2 ??F)-37.9 ??C (100.2 ??F)] Heart Rate Heart Rate: 70 Heart Rate: -- Blood Pressure BP: 160/70 BP: (127-160)/(62-77) Respiratory Rate Resp: 17 Resp: [16-17] SpO2 SpO2: 96 % SpO2: [89 %-96 %] Ventilator: Mode Rate TV PEEP FiO2 Pplateau PHYSICAL EXAM: Patient is awake alert not [...] motor examination is grossly normal. slight asterixis. STUDIES: LABS: CBC: Recent Labs 02/24/24 0607 02/23/24 1725 02/23/24 0411 WBC 14.1* 14.8* 16.1* HGB 8.4* 9.7* 6.9* PLATELET 445* 476* 388* Chemistry: Recent Labs 02/24/24 0607 02/23/24 0411 02/22/24 0453 NA 137 137 137 K 4.7 4.9 4.3 CL 97* 98 99 CO2 26 26 28 BUN 25* 34* 25* CREATININE 5.70* 7.00* 5.47* GLUCOSE 123 98 143 Recent Labs 02/24/24 0607 02/23/24 04102/22/24 0453 CALCIUM 9.2 8.5 8.4* MAGNESIUM 0.84 0.83 0.81 PHOS 4.8* 5.5* 4.4 ABG (Arterial Blood Gas) Recent Labs 02/18/24 1516 LACTATEVEN 1.0 VBG (Venous Blood Gas) Recent Labs 02/18/24 1516 PHVEN 7.39 [id number] 48 PO2VEN 22* GUH3EXU 28.3 LACTATEVEN 1.0 Mixed Venous Sat No results for input(s): [id number] in the last 168 hours. LFT's: Recent Labs 02/22/243 ALBUMIN 2.8* Prot/Cre Ratio Date Value Ref Range Status 02/06/2019 6.6 ratio Final Lab Results Component Value Date TPROTEINPEP 6.4 04/07/2018 ALBELECT 3.83 04/07/2018 Lab Results Component Value Date MICROALBUR 577.9 06/13/2015 Lab Results Component Value Date HA1C 12.4 (H) 05/04/2019 HA1C 11.2 (H) 03/07/2019 HA1C 10.7 (H) 08/10/2018 Lab Results Component Value Date PTH 45 02/06/2019 CALCIUM 9.2 02/24/2024 PHOS 4.8 (H) 02/24/2024 25-OH Vit D Total (ng/mL) Date Value Status 05/04/2019 29 (L) Final MICROBIOLOGY: Procedure Component Value Units Date/Time MRSA PCR Screen ([facility]) [[id number]] Collected: 02/18/24 2302 Lab Status: Final result Specimen: Nasopharyngeal Swab Updated: 02/19/24 1723 MRSA Result Negative MRSA Interp -- Methicillin-resistant Staphylococcus aureus (MRSA) is NOT DETECTED The MRSA target DNA sequences (mec and SCC) were not detected within the acceptable ranges using the Xpert MRSA NxG on the GeneXpert Dx System ([employer]). This suggests the absence of MRSA in the patient specimen submitted for testing. This test is cleared by the U.S. Food and Drug Administration for clinical use and its performance characteristics have been verified by the [facility] at [facility]. This result does not rule out the presence of any other organisms. Rare false negative results may occur if MRSA is present at low concentrations with much higher concentrations of other organisms including MRSE or S. aureus with an empty SCC cassette. Comment: [VERIFIED DATE]02.19.24 Verified By:Shaina Goff (Electronic Signature) Blood culture [[id number]] Collected: 02/18/24 1500 Lab Status: Preliminary result Specimen: Blood Updated: 02/19/24 2302 Blood Culture No growth at 1 day. Blood culture [[id number]] Collected: 02/18/24 1415 Lab Status: Preliminary result Specimen: Blood from Antecubital, Right Updated: 02/19/24 1501 Blood Culture No growth at 1 day. IMAGING: N/A ASSESSMENT/IMPRESSIONS + PLAN: 1) ESRD on HD - Impressions: No significant indications for HD. Patient dialyzed yesterday according to his MWF schedule. - Access: LUE AVF - Schedule: MW; Next dialysis: Saturday 02/24 - Prescription for Next Dialysis: Duration:4; Na:140; Bicarb:35; Temp:35; Dialyzer:F200; BFR:400cc/min; DFR:2xBFR; UF:1-3kg; BVM: Profile: B - Anticoagulation: Hold heparin in setting of recent BKA - Additional Recs: - Protect LUE from venopuncture or BP measurements. - Would obtain blood cultures 2) Hemodynamics - Impressions: Stable - Pressures: BP between 140 - 150 systolics - Recommendations / Therapies: - Continue Amlodipine 10mg daily - Continue Coreg 12.5mg BID - Continue Diltiazem 120mg daily 3) Anemia / Hemoglobin - Impressions: Hgb = 8.0; - Recommendations / Therapy: - Will defer Anemia management to outpatient dialysis for now - Please prescribe nephrocaps daily - Will administer EPO 10,000U during HD 4) Bone Mineral Health - Impressions: Defer BMD labs to outpatient unit - Recommendations / Therapy: - Continue Renvela 1600mg TID - Would continue Vit D 1000UT daily - Would continue home low-dose TUMS daily with meals 5) Electrolytes - Impressions: Stable - Recommendations / Therapy: - Management with HD Thanks for letting us participate in the care of this patient. 02/24/[address] Jordan Kenny Nephrology and HTN Fellow Associated attestation - Jordan Sepulveda MD - 02/24/2024 3:13 PM EDT Patient was seen and examined in person with the renal fellow Dr. Kenny. Assessment and plan were formulated after discussion with me and I agree with them. Please see her notes for details. Comfortable today, pain is better controlled. Had hemodialysis yesterday with 2500 mL ultrafiltration. He has swelling in the left upper extremity where his AV fistula is located,? Mild increased pulsatility. Will reach out to vascular surgery. Anticipated next dialysis tomorrow. Now that his calcium levels have improved and that his phosphorus levels are reasonable, recommend stopping calcium carbonate and continue sevelamer and 1600 mg p.o. 3 times daily with meals as phosphorus binder. I took the liberty to add on a PTH to the previous draw Now that he is off antibiotics, and as per vascular surgery there is no active infection, I will add on iron and ferritin levels and if it is low we will give him Venofer. * Reggie Lopez, OT - 02/24/2024 9:36 AM EDT Occupational Therapy Treatment Note Treatment Number OT: 2 Patient Dx: Gerson Bruner is a 58 y.o. male admitted on 02/18/2024 for past medical history significant for end-stage renal disease on HD (last HD 02/18/2024), TIA (2018, thought to be secondary to small vessel disease), and diabetes who presents with bilateral heel ulcers, left worse than right. The patient estimates that these have been here for approximately 1 to 2 months, and he follows with apodiatrist for these. He presented to [facility] yesterday after noting fevers and after his VNA identified worsening redness of the left foot. The patient denies any increased pain, numbness, or tingling.He states that at baseline he does not ambulate much. Precautions/Special Considerations: Heel offloading RLE, NWB LLE, No pillows under LLE to prevent contracture, impulsive, Dialysis MWF 8AM Interval History: Nerve cath d/darcie by APS/regional team yesterday - Underwent HD and received 1U pRBC with a Hgb response from 6.9 to 9.7 - NAEO - Pain is better controlled this AM - Dressing taken down today and replaced with Kerlix and JA - Instructed patient to not have pillow directly behind the knee and placed nursing communication order - Afebrile, HDS - Hgb 8.4 (9.7), WBC 14.1 (14.8) S: Why can't I just stand pivot O: Patient seen for skilled OT treatment, and demonstrated the following: Self-care:Pt participated in donning a sock on the RLE while sitting upright in bed with extra timeto car repairer pullman bandages. Pt participated in a toileting routine including slide board txfr, side leaning to lower pants, andcompleting hygiene on a commode with min/mod A Fine motor deficits apparent with functional use of fingers to pull sock up - unable to pinch fabric effectively. Functional Mobility:Pt found supine in bed and willing to participate but slightly irritable d/t lack of sleep/being woken up multiple times and not eating breakfast Pt completed bed mobility to move supine to EOB with SPV for cues to maintain NWB status on LLE OT and PT instructed pt on use of slide board with moderate carryover within session to complete 5 txfrs EOB>Recliner>EOB>Recliner>Drop arm Commode>Recliner. Pt uses arms well but requires additional cues to maintain Heel offloading WB status. Pt requires additional training for slide board to be independent and cues to maintain precautions Cognition: Behavior / Mood: alert, cooperative, and agitated Alert and oriented to: person, place, and situation Follows commands: 1 step and 75% of the time Attention: WFL Safety awareness: decreased insight into deficits Slight emotional liability, inconsistent cyber operator, possibly affected by hearing deficits. Vision: WFL Endurance:Limited by dialysis side effects Vitals: VSS on RA Strength/ROM:Hand dominance: right Bilateral UEs are within functional limitations with slight tremors noted LE limitations: LEFT BKA, R Heel off loading. No apparent strength or ROM difficulties, tremors noted Pain: 8/10 shooting/flashes of pain in residual L Limb, 3/10 when not flashing Education: Pt/family/caregiver education ongoing regarding: Role of occupational therapy/rehabilitation, Transfers, Assistive device/technique, Adaptive equipment training, ADL, Positioning, Safety, Recommendations, and Discharge planning. Staff Communication: Patient status, treatment, and mobility recommendations discussed with nursing/other staff. ASSESSMENT: Pt has been seen for occupational therapy treatment. Gerson Bruner presents with the following performance skill deficits and client factors: increased pain, decreased sitting / standingbalance, sensory deficits, precautions / bracing, compromised mobility status, and skin integrity. These performance deficits have led to activity limitations and participation restrictions in the following areas of occupation: dressing, bathing, grooming, toileting, transfers / mobility, home management, work, driving, and community mobility. Today pt tolerated transfer practice, donning footwear and toileting well. Requiring additional cues to maintain WB precautions and education for safety with mobility using slide board. Pt moving relatively well but has significant shooting pain in residual limb. At this time pt would benefit from further inpatient OT interventions to address performance deficits and maximize participation and independence with occupations of daily living. OT recommending additional acute rehab pending medical status and progression throughout hospitalization. Equipment needs at discharge: commode, slide board, ramp, tub transfer bench Anticipated Discharge Disposition: acute rehabilitation facility Daily schedule / Staff Recommendations: Utilize upright chair position using bed features or transfer to recliner chair as appropriate with mechanical lift until cleared by therapy for functional txfrs Encourage participation in ADL's by providing set up A on tray table and physical assist only as needed. Sitting EOB to complete hygiene and grooming tasks. Elevate leg and encourage breathing for promoted healing in BLE's Occupational Therapy Goals: To be achieved by 03/06/24. - Pt will complete LB dressing with Setup Assist given any adaptive equipment necessary - Pt will complete grooming while seated at sink with Modified Independent given any adaptive equipment necessary - Pt will complete a full toileting routine including txfr with Contact Guard Assist given any adaptive equipment necessary Progressing - Pt will report 3/10 pain with functional activity - Pt will demonstrate understanding and following of WB precautions. Progressing - Pt will complete functional transfers without breaking WB precautions with any assistive devices necessary. Progressing Therapy Frequency (OT): 2-3 times/wk Total Minutes, Occupational Therapy: 59 ([id number] 2xSelf Care, 2xFunc Act) Pager: [phone] Reggei Lopez, MIGUEL ÁNGEL 02/24/2024 Occupational Therapy Rehabilitation Department * Zandra Tucker, PT - 02/24/2024 9:35 AM EDT Physical Therapy Evaluation Patient profile: Gerson Bruner is a 58 y.o. male admitted on 02/18/[address] Ari Renae MD.Per note, Gerson Bruner is a 58 y.o. male with past medical history significant for end-stage renal disease on HD (last HD 02/18/2024), TIA (2018, thought to be secondary to small vessel disease), and diabetes who presents with bilateral heel ulcers, left worse than right. The patient estimatesthat these have been here for approximately 1 to 2 months, and he follows with a paper final inspector for these. He presented to [facility] yesterday after noting fevers and after his VNA identified worsening redness of the left foot. The patient denies any increased pain, numbness, or tingling. He states that at baseline he does not ambulate much. The patient has not had any vascular interventions in the past, although he has been evaluated by avascular surgeon at [facility] who determined that he does not have any indication for revascularization based on his toe pressures. The patient takes Eliquis at baseline for A-fib, however he ran out approximately 1 week ago and has not taken it during that time. Operations This Hospitalization: 02/18/24: L through ankle guillotine amputation. 02/21/24: L below knee amputation Gerson Bruner is a 58 y.o. male with a history of end-stage renal disease on HD, TIA (2019, thought to be secondary to small vessel disease), and diabetes who is now 3 Days Post-Op a left BKA. He is recovering well from that and we will keep the dressing and antibiotics until POD 3. Acute blood loss anemia following surgery, will plan to give 1u pRBC during HD today. Appreciate APS/regional team for further pain management (on tylenol, lyrica, robaxin, oxycodone, nerve cath), will consider TCA/ketamine but will be cautious given baseline mental status). Patient with the following active problems: Past Medical History: Diagnosis Date Anemia Chronic kidney disease CKD (chronic kidney disease) stage 4, GFR 15-29 ml/min Diabetes mellitus Herniation of lumbar intervertebral disc with radiculopathy 08/16/2015 L4-5 left Hypertension Past Surgical History: Procedure Laterality Date PRO AMPUTATION LOW LEG THRU TIB/FIB Left 02/21/2024 @AMPUTATION, BELOW-KNEE (WRVU 15.37) performed by Ari Renae MD at [facility] OR PRO AMPUTATION LOW LEG, CIRCULAR Left 02/18/2024 @AMPUTATION, BELOW-KNEE, OPEN, GUILLOTINE (WRVU 9.79) performed by Ari Renae MD at [facility] OR PRO ANASTOMOSIS, AV, ANY SITE Left 09/05/2018 AV FISTULA CREATION, DIRECT HEMODIALYSIS, ANY SITE, EG GABRIEL FISTULA UPPER EXTREMITY (WRVU 11.9) performed by Scout Reese MD at [facility] OR PRO COLONOSCOPY, REMV LESN, SNARE N/A 09/26/2019 COLONOSCOPY, POLYPECTOMY, REMOVAL LESION BY SNARE (WRVU 4.67) performed by Kaye Gibbs MD at [facility] Active Non-Hospital Problems Diagnosis TIA (transient ischemic attack) Right sided numbness [...] Social History: (per patient report) Home set-up: Reports he has been living with his brother who has 13 stairs to enter his home. Reports his own house is in the process of remodeling and it is not currently livable d/t not having electricity or insulation. Reports he does not know when his house will be finished but it is 1 level. Stairs: reports 13 stairs to enter his brother's home, 1 stair to enter his home Baseline Mobility: Reports he used a manual w/c for mobility at baseline. Pt states his had quit her job in order to care for him at home. Sleeps in a regular flat bed that is not adjustable. Equipment at home: manual wheelchair, unclear if pt has FWW Fall history: did not report any Precautions/Special Considerations: New L below knee amputation, NWB LLE, heel offloading RLE, fallrisk, hard of hearing, no blood pressures on LUE Activity Orders (From admission to next 72h) Start Ordered 02/22/24 1605 Weight bearing status UNTIL DISCONTINUED Process Instructions: If individualized per extremity weight restrictions are being indicated, please complete a NEW order for EACH extremity. Question Answer Comment Weight bearing of: NON Weight Bearing (0%) Extremity / Laterality: LOWER LEFT extremity 02/22/24 1601 02/22/24 1605 Weight bearing status UNTIL DISCONTINUED Process Instructions: If individualized per extremity weight restrictions are being indicated, please complete a NEW order for EACH extremity. Question Answer Comment Weight bearing of: Custom Custom: Heel offloading Extremity / Laterality: LOWER RIGHT extremity 02/22/24 1601 Unscheduled Up with assistance PRN 02/22/24 0823 Mobility and Positioning Recommendations: Pt. to utilize slide board for transfers between bed<>recliner chair with gait belt with nursing while adhering to heel offloading RLE. Please encourage up to chair for meal times as able. Recommend pt keeps L knee in straight/extended position while resting in bed/chair for extended periods of time to prevent knee flexion contracture. Subjective: ???How am I supposed to keep my leg while in bed??? Objective: Pt agreeable to physical therapy evaluation today, met resting in bed. Patient seen for PT evaluation and demonstrated the following: Pain: reports moderate-high levels of pain in LLE at end of evaluation, RN made aware Vital Signs: HR: 67 bpm SpO2: 96% room air Vital signs stable and pt asymptomatic throughout evaluation Mental Status: alert, oriented to person, place, and time Musculoskeletal: ROM: WFL RLE, L knee resting in slightly flexed position while resting in bed, pt able to demonstrate 0 deg L knee extension/full knee extension AROM when cued, 0-~90 deg gross L knee flexion AROM observed, educated pt on importance of keeping L knee in extended position while resting in bed/chair Strength: grossly decreased functional strength BLE observed, limited 2/2 weight bearing precautions, please refer to OT note for BUE strength Integumentary: ja wrap noted L residual limb, mild edema noted L residual limb, gauze wrapping noted R ankle Bed Mobility: Supine to Sit: CGA, HOB elevated, cues for technique, using bed rail Sit to Supine: NA, pt resting in chair at end of evaluation Scooting in bed while sitting EOB: supervision, able to maintain heel offloading RLE with cues, practiced scooting EOB prior to slide board transfer for practice/safety Transfers: Sit to Stand: NA d/t L BKA and R heel offloading WB status Stand to Sit: NA Bed to recliner chair: slide board transfer with minimal assist, required assistance of placing/removing slide board, cues for technique throughout, cues for adhering to heel offloading RLE Recliner chair to bed: slide board transfer with minimal assist, required assistance for placing/removing slide board, cues for technique throughout, cues to adhere to heel offloading RLE Bed to recliner chair: slide board transfer with minimal assist, assist for placing/removing slide board, cues for technique throughout, pt maintained NWB RLE throughout in order to decrease weight through RLE Gait: Distance: NA d/t L BKA and heel offloading WB precaution RLE Stairs: DNT Balance: Sitting Static: good, supervision Sitting Dynamic: good, supervision Standing Static: DNT d/t L BKA, heel offloading RLE Standing Dynamic / Gait: DNT Education: patient has been educated on Bed mobility, Transfers, Assistive device/technique, Positioning, Safety , Precautions/protocol, Equipment use, Activity pacing/Energy conservation, Role of therapy, and Discharge planning and verbalize and demonstrate understanding. Provided extensive education regarding importance of keeping L knee in extended/straight position while resting for extended periods of time. Provided pt with post op BKA hand out/protocol on positioning guidelines and HEP. Instructed pt on L knee flexion/extension AROM while sitting in chair with instructions to perform asHEP as tolerated for optimal ROM of L knee and to prevent contracture. Pt verbalized and demonstrated understanding. Patient status, treatment, and mobility recommendations discussed with nursing. Ptsitting in chair at end of physical therapy evaluation, call martinez within reach, and all needs met. Assessment: Gerson Bruner was seen today for physical therapy evaluation s/p L below knee amputation. Pt presents with impairments including decreased strength, pain, edema, decreased activity tolerance, decreased range of motion, reliance on AD, new precautions, impaired balance, impaired skin integrity and new L below knee amputation contributing to activity limitations, decreased participation in ADLs, and decreased ability to care for one's self. Pt was provided extensive education regarding heel offloading status of RLE, NWB LLE and positioning recommendations for LLE to prevent contracture today. Pt verbalized, demonstrated understanding and will benefit from review of this. Pt demonstrated supine>sit transfer with CGA with head of bed elevated and using bed rail. Pt practiced slide board transfer multiple times from bed > recliner chair >bed >recliner chair, requiring minimal assist throughout for placing/removing slide board and cues throughout for safe transfer technique. Pt required cues throughout for adhering to heel offloading of RLE and demonstrated ability to perform slide board transfer from bed >recliner chair while minimizing weight through RLE for optimal healing. Pt receptive to cuing and education throughout evaluation and appeared quite motivated to improve his overall independence with all functional mobility. Pt currently functioning belo w their baseline level of functional mobility and would benefit from short rehab stay in order to maximize independence and safety with functional mobility. Recommend patient discharge to acute rehabfacility once medically ready for hospital discharge. Pt [...] for therapy including balancetraining, bed mobility training, gait training, home exercise program, neuromuscular re-education, patient/family education, postural re-education, range of motion, strengthening, transfer training, and wheelchair managment/propulsion training. Patient/family understand and agree with plan as stated above. Consult Recommendations: No other consults recommended at this time. Equipment needs: Anticipated Equipment Needs at Discharge (PT): to be determined, slide board, drop arm bench commode Goals: To be achieved by 03/26/24: Pt. to demonstrate knowledge of safety limitations and precautions and will appropriately request assistance for functional activities and to mobilize. Pt. to perform bed mobility with modified independence from flat bed. Pt. to perform slide board transfers with modified independence between bed<>w/c<>commode while adhering to heel offloading RLE with no cues from therapist for correct technique. Pt. to propel manual w/c 150 ft with BUE with modified independence. Pt to demonstrate independence with post op BKA protocol home exercise program in order to optimizeBLE strength/ROM. Pt to demonstrate 0-95 deg L knee flexion AROM and L knee in extended position while resting in bed/chair in order to prevent contracture. Pt will tolerate progression towards upright with [...] Addressing 1-2 elements Addressing 3 + elements Addressing 4 + elements x Clinical presentation: See assessment above. Stable/Uncomplicated Evolving/Fluctuating Symptoms Unstable/Unpredictable x Clinical decision making of moderate complexity based on pt's functional performance as outlined inthis evaluation. Time IN / OUT: 9:35-10:29 Total Time: 54 minutes; rosalva tam PT, Doctor of Physical Therapy Pager: [phone] Physical Therapy Inpatient Rehabilitation Department * Felton Márquez MD - 02/24/2024 8:42 AM EDT Images from the original note were not included. Vascular Surgery Progress Note Gerson Bruner is a 58 y.o. male with past medical history significant for end- stage renal disease on HD (last HD 02/18/2024), TIA (2018, thought to be secondary to small vessel disease), and diabeteswho presents with bilateral heel ulcers, left worse than right. The patient estimates that these have been here for approximately 1 to 2 months, and he follows with a paper final inspector for these. He presented to [facility] yesterday after noting fevers and after his VNA identified worsening redness of the left foot. The patient denies any increased pain, numbness, or tingling. He states that at baseline he does not ambulate much. The patient has not had any vascular interventions in the past, although he has been evaluated by avascular surgeon at [facility] who determined that he does not have any indication for revascularization based on his toe pressures. The patient takes Eliquis at baseline for A-fib, however he ran out approximately 1 week ago and has not taken it during that time. Operations This Hospitalization: 02/18/24: L through ankle guillotine amputation. 02/21/24: L below knee amputation 24hr Event/ Subjective: - Nerve cath d/darcie by APS/regional team yesterday - Underwent HD and received 1U pRBC with a Hgb response from 6.9 to 9.7 - NAEO - Pain is better controlled this AM - Dressing taken down today and replaced with Kerlix and JA - Instructed patient to not have pillow directly behind the knee and placed nursing communication order - Afebrile, HDS - Hgb 8.4 (9.7), WBC 14.1 (14.8) Active Hospital Problems Diagnosis Non-healing open wound of heel Resolved Hospital Problems No resolved problems to display. Active Non-Hospital Problems Diagnosis TIA (transient ischemic attack) Right sided numbness [...] Unspecified hearing loss Scheduled Medications: insulin lispro 0-6 Units Subcutaneous Q4H [facility] insulin lispro 0-8 Units Subcutaneous TID insulin glargine (Lantus;Semglee) (100 unit/mL) subcutaneous injection 10 Units Subcutaneous Daily polyethylene glycoL (MIRALAX) oral powder 17 g Oral Daily senna-docusate 2 tablet Oral BID acetaminophen 975 mg Oral Q6H [facility] carvediloL 12.5 mg Oral BID vitamin B Complex-vitamin C-folic Acid 1 tablet Oral Daily cholecalciferol 1,000 Units Oral Daily calcium carbonate 500 mg Oral TID amLODIPine 10 mg Oral Daily aspirin 81 mg Oral Daily atorvastatin 40 mg Oral QPM pregabalin 100 mg Oral BID sodium chloride 0.9 % (flush) 5 mL Intravenous BID heparin (porcine) 5,000 Units Subcutaneous Q8H [facility] sevelamer carbonate 1,600 mg Oral TID dilTIAZem CD 120 mg Oral Daily Objective: Temp: [36.8 ??C (98.2 ??F)-37.9 ??C (100.2 ??F)] Heart Rate: [67-70] Resp: [16-17] BP: (127-176)/(62-83) SpO2: [92 %-97 %] Heart Rate from SpO2: [67 bpm-95 bpm] BMI: Weight: 86.2 kg (190 lb) (02/18/24 1406) Intake/Output Summary (Last 24 hours) at 02/24/2024 0842 Last data filed at 02/24/2024 0742 Gross per 24 hour Intake 734 ml Output 2500 ml Net -1766 ml PHYSICAL EXAM: General: NAD, resting comfortably HEENT: Normocephalic, atraumatic Heart:: regular rate Pulmonary: non-labored breathing Abdomen: soft, ND Neuro: no focal deficits Extremities: RLE: Edematous, eschar on heel with no evidence of drainage, small amount of surrounding erythema, painted with betadine LLE: Dressing taken down and incision site is well approximated, clean, dry, no active drainage or erythema or hematoma. Dressing replaced with Kerlix and JA Labs: Recent Labs 02/24/24 0607 02/23/24 1725 02/23/24 0411 02/22/24 0453 02/21/24 1915 WBC 14.1* 14.8* 16.1* 16.4* -- HGB 8.4* 9.7* 6.9* 8.1* 8.3* HCT 25.8* 30.2* 21.6* 25.3* 27.4* PLATELET 445* 476* 388* 434* -- Recent Labs 02/24/24 0607 02/23/24 0411 02/22/24 0453 NA 137 137 137 K 4.7 4.9 4.3 CL 97* 98 99 CO2 26 26 28 BUN 25* 34* 25* CREATININE 5.70* 7.00* 5.47* PHOS 4.8* 5.5* 4.4 CALCIUM 9.2 8.5 8.4* Microbiology: 02/17 Bcx: NGTD 02/17 MRSA: negative 02/18 Bcx: NGTD 02/20 Bcx: NGTD New Studies: None Assessment & Plan: Gerson Bruner is a 58 y.o. male with a history of end-stage renal disease on HD, TIA (2018, thought to be secondary to small vessel disease), and diabetes who is now 3 Days Post-Op a left BKA. He isrecovering well from that and we will keep the dressing and antibiotics until POD 3. Acute blood loss anemia following surgery, will plan to give 1u pRBC during HD today. Appreciate APS/regional team for further pain management (on tylenol, lyrica, robaxin, oxycodone, nerve cath), will consider TCA/ketamine but will be cautious given baseline mental status). - No pillow directly behind left knee to prevent contracture, patient must be extending left knee as much as possible (ie: keep it straight) - Continue OOB today with PT/OT - D/C vanc/zosyn (02/17-02/22) and monitor contralateral heel wound as it appears stable and no activeinfection - Trim right heel skin - Nephro consult for HD, last HD 02/22, next dialysis is scheduled for 02/25 - BIT consult - Prevalon boot to RLE - SQH DVT ppx - ASA, Statin - Renal diet 2 GM NA; /90 CHO counting level 4 Felton Márquez MD 02/24/2024 Pager: [phone] Associated attestation - Ari Renae MD - 02/24/2024 3:16 PM EDT I have seen and examined the patient, providing olivares components as outlined below. I have reviewed the resident???s above note; my evaluation of the patient is below: L BKA wound looks great. Can DC antibx Needs to work on knee straightening and not sitting with flexion or will develop contracture R heel stable. Necrosis I suspect involving at least the dermis, likely not full thickness. Has adequate perfusion based on toe pressure to heal wound. Needs complete offloading and wound care. Dispo planning, PT/OT eval Dialysis per nephrology. Ari Renae MD * Mary Kenny MD - 02/23/2024 4:28 PM EDT Images from the original note were not included. [facility] NEPHROLOGY/HYPERTENSION DIALYSIS PROGRESS NOTE PATIENT: Gerson Bruner : 1965 Ken Greer MD REASON FOR CONSULTATION: ESRD Management INTERVAL HISTORY: S/p L BKA Patient seen and examined during dialysis. He complained of severe pain at site of surgery. Otherwise, no complaints or concerns expressed. He is planned for dialysis ton Wednesday ROS: 4 point review of sytem was done, everything was negative except for what was mentioned above. INTAKE/OUTPUTS: Intake/Output Summary (Last 24 hours) at 02/23/2024 1628 Last data filed at 02/23/2024 1205 Gross per 24 hour Intake 604 ml Output 2500 ml Net -1896 ml MEDICATIONS: insulin lispro 0-6 Units Subcutaneous Q4H PAULIE insulin lispro 0-8 Units Subcutaneous TID WC [START ON 02/24/2024] insulin glargine (Lantus;Semglee) (100 unit/mL) subcutaneous injection 10 UnitsSubcutaneous Daily polyethylene glycoL (MIRALAX) oral powder 17 g Oral Daily senna-docusate 2 tablet Oral BID acetaminophen 975 mg Oral Q6H PAULIE carvediloL 12.5 mg Oral BID WC piperacillin-tazobactam 3.375 g Intravenous Q12H vitamin B Complex-vitamin C-folic Acid 1 tablet Oral Daily cholecalciferol 1,000 Units Oral Daily calcium carbonate 500 mg Oral TID WC amLODIPine 10 mg Oral Daily aspirin 81 mg Oral Daily atorvastatin 40 mg Oral QPM pregabalin 100 mg Oral BID sodium chloride 0.9 % (flush) 5 mL Intravenous BID heparin (porcine) 5,000 Units Subcutaneous Q8H PAULIE sevelamer carbonate 1,600 mg Oral TID WC dilTIAZem CD 120 mg Oral Daily Vasoactive/Sedating Meds: VITALS: Last value Range last 24 hrs Temperature Temp: 37.7 ??C (99.9 ??F) Temp: [36.7 ??C (98.1 ??F)-37.7 ??C (99.9 ??F)] Heart Rate Heart Rate: 70 Heart Rate: [63-70] Blood Pressure BP: 127/62 BP: (112-176)/(61-83) Respiratory Rate Resp: 16 Resp: [14-17] SpO2 SpO2: 95 % SpO2: [91 %-97 %] Ventilator: Mode Rate TV PEEP FiO2 Pplateau PHYSICAL EXAM: Patient is awake alert not [...] motor examination is grossly normal. slight asterixis. STUDIES: LABS: CBC: Recent Labs 02/23/2441002/22/2445202/21/24 1915 02/21/24 0602 WBC 16.1* 16.4* -- 13.0* HGB 6.9* 8.1* 8.3* 8.0* PLATELET 388* 434* -- 510* Chemistry: Recent Labs 02/23/2441002/22/24 04502/21/24 0602 NA 137 137 139 K 4.9 4.3 5.1* CL 98 99 101 CO2 26 28 26 BUN 34* 25* 46* CREATININE 7.00* 5.47* 8.39* GLUCOSE 98 143 96 Recent Labs 02/23/2441002/22/24 0453 02/21/24 0602 CALCIUM 8.5 8.4* 9.2 MAGNESIUM 0.83 0.81 0.93 PHOS 5.5* 4.4 5.2* ABG (Arterial Blood Gas) Recent Labs 02/18/24 1516 LACTATEVEN 1.0 VBG (Venous Blood Gas) Recent Labs 02/18/24 1516 PHVEN 7.39 FDO2LES 48 PO2VEN 22* BGN5BOG 28.3 LACTATEVEN 1.0 Mixed Venous Sat No results for input(s): I4VECY5 in the last 168 hours. LFT's: Recent Labs 02/22/24 0453 ALBUMIN 2.8* Prot/Cre Ratio Date Value Ref Range Status 02/06/2019 6.6 ratio Final Lab Results Component Value Date TPROTEINPEP 6.4 04/07/2018 ALBELECT 3.83 04/07/2018 Lab Results Component Value Date MICROALBUR 577.9 06/13/2015 Lab Results Component Value Date HA1C 12.4 (H) 05/04/2019 HA1C 11.2 (H) 03/07/2019 HA1C 10.7 (H) 08/10/2018 Lab Results Component Value Date PTH 45 02/06/2019 CALCIUM 8.5 02/23/2024 PHOS 5.5 (H) 02/23/2024 25-OH Vit D Total (ng/mL) Date Value Status 05/04/2019 29 (L) Final MICROBIOLOGY: Procedure Component Value Units Date/Time MRSA PCR Screen [place] [place] [[id number]] Collected: 02/18/24 2302 Lab Status: Final result Specimen: Nasopharyngeal Swab Updated: 02/19/24 1723 MRSA Result Negative MRSA Interp -- Methicillin-resistant Staphylococcus aureus (MRSA) is NOT DETECTED The MRSA target DNA sequences (mec and SCC) were not detected within the acceptable ranges using the Xpert MRSA NxG on the GeneXpert Dx System ([employer]). This suggests the absence of MRSA in the patient specimen submitted for testing. This test is cleared by the U.S. Food and Drug Administration for clinical use and its performance characteristics have been verified by the [facility] at [facility]. This result does not rule out the presence of any other organisms. Rare false negative results may occur if MRSA is present at low concentrations with much higher concentrations of other organisms including MRSE or S. aureus with an empty SCC cassette. Comment: [VERIFIED DATE]02.19.24 Verified By:Shaina Goff (Electronic Signature) Blood culture [[id number]] Collected: 02/18/24 1500 Lab Status: Preliminary result Specimen: Blood Updated: 02/19/24 2302 Blood Culture No growth at 1 day. Blood culture [[id number]] Collected: 02/18/24 1415 Lab Status: Preliminary result Specimen: Blood from Antecubital, Right Updated: 02/19/24 1501 Blood Culture No growth at 1 day. IMAGING: N/A ASSESSMENT/IMPRESSIONS + PLAN: 1) ESRD on HD - Impressions: No significant indications for HD. Patient dialyzed yesterday according to his MWF schedule. - Access: LUE AVF - Schedule: MWF; Next dialysis: Sunday 02/25 - Prescription for Next Dialysis: Duration:4; Na:140; Bicarb:35; Temp:35; Dialyzer:F200; BFR:400cc/min; DFR:2xBFR; UF:1-3kg; BVM: Profile: B - Anticoagulation: Hold heparin in setting of recent BKA - Additional Recs: - Protect LUE from venopuncture or BP measurements. - Would obtain blood cultures 2) Hemodynamics - Impressions: Stable - Pressures: BP between 140 - 150 systolics - Recommendations / Therapies: - Continue Amlodipine 10mg daily - Continue Coreg 12.5mg BID - Continue Diltiazem 120mg daily 3) Anemia / Hemoglobin - Impressions: Hgb = 8.0; - Recommendations / Therapy: - Will defer Anemia management to outpatient dialysis for now - Please prescribe nephrocaps daily - Will administer EPO 10,000U during HD 4) Bone Mineral Health - Impressions: Defer BMD labs to outpatient unit - Recommendations / Therapy: - Continue Renvela 1600mg TID - Would continue Vit D 1000UT daily - Would continue home low-dose TUMS daily with meals 5) Electrolytes - Impressions: Stable - Recommendations / Therapy: - Management with HD Thanks for letting us participate in the care of this patient. 02/23/[address] Jordan Kenny Nephrology and HTN Fellow Associated attestation - Jordan Sepulveda MD - 02/24/2024 9:10 AM EDT Patient was seen and examined in person with the renal fellow Dr. Kenny while on Hemodialysis. Assessment and plan were formulated after discussion with me and I agree with them. Please see her notes for details. * Patrica Greene MD - 02/23/2024 2:40 PM EDT Regional Anesthesia Catheter Progress Note Date of Encounter: 02/23/2024 ID: Patient is POD# 2 s/p left BKA for which the patient received a left sciatic nerve catheter forpost-operative pain control. Subjective: Today the patient has adequate pain control. Patient has not been using the bolus feature. Patient has been able to tolerate PO analgesics and an oral diet without nausea or vomiting. Patient is without any complaints this morning. Objective: Temp: [36.7 ??C (98.1 ??F)-37.2 ??C (99 ??F)] Heart Rate: [63-70] Resp: [14-18] BP: (112-176)/(61-83) SpO2: [91 %-98 %] Heart Rate from SpO2: [63 bpm-95 bpm] Gen: Patient resting comfortably Nerve catheter is running 0.2% ropivacaine at 6 ml/hr Patient controled bolus of 3 ml with a lockout of 30 min Catheter dressing is clean, dry, and intact. No bruising, erythema, swelling or discharge at insertion site. Meds: Medication list reviewed Assessment: Peripheral nerve catheter for post-operative pain control, currently with adequate paincontrol. Plan: Peripheral nerve catheter was removed. Tip was intact. No bleeding, hematoma or erythema at the insertion site. Rest of care per primary team Thank you for the opportunity to have participated in the care of this patient. Patrica Greene MD Regional Team pager [phone] * Reggie Lopez, OT - 02/23/2024 1:35 PM EDT Occupational Therapy Note Document Type: contact Total Minutes, Occupational Therapy: 0 Reason: 02/23/24 1335 Evaluation & Treatment Document Type contact Total Minutes, Occupational Therapy 0 Comment, Session Not Performed Pt not seen per RN report significant pain and fatigue post morning dialysis. PT also attempting evaluation this afternoon. OT will follow up at later date to continue with treatment plan as medically necessary. Vital Signs Heart Rate from SpO2 76 bpm SpO2 94 % Pager: [phone] Reggie Lopez, MIGUEL ÁNGEL 02/23/2024 Occupational Therapy Rehabilitation Department * Zandra Tucker PT - 02/23/2024 1:25 PM EDT Physical Therapy Note Document type: Contact Total minutes, Physical Therapy: 0 (non-billable) Reason: PT order received, patient's chart reviewed, discussed with pt's RN. Per RN, pt had just returned from dialysis session, was having significant pain levels and low blood glucose. Pt not appropriate for physical therapy evaluation, however will continue to follow and see for physical therapy evaluation when medically appropriate/available. Zandra Tucker PT, Doctor of Physical Therapy Pager: [phone] Physical Therapy Inpatient Rehabilitation Department * Jean Henning MD - 02/23/2024 10:20 AM EDT Vascular Surgery Progress Note Gerson Bruner is a 58 y.o. male with past medical history significant for end- stage renal disease on HD (last HD 02/18/2024), TIA (2018, thought to be secondary to small vessel disease), and diabeteswho presents with bilateral heel ulcers, left worse than right. The patient estimates that these have been here for approximately 1 to 2 months, and he follows with a paper final inspector for these. He presented to [facility] yesterday after noting fevers and after his VNA identified worsening redness of the left foot. The patient denies any increased pain, numbness, or tingling. He states that at baseline he does not ambulate much. The patient has not had any vascular interventions in the past, although he has been evaluated by avascular surgeon at [facility] who determined that he does not have any indication for revascularization based on his toe pressures. The patient takes Eliquis at baseline for A-fib, however he ran out approximately 1 week ago and has not taken it during that time. Operations This Hospitalization: 02/18/24: L through ankle guillotine amputation. 02/21/24: L below knee amputation 24hr Event/ Subjective: - Nerve cath in place, APS/regional team following - NAEO - Pain better controlled this morning - Afebrile, HDS - Hgb 6.9 (8.1), WBC 16.1 (16.4) Active Hospital Problems Diagnosis Non-healing open wound of heel Resolved Hospital Problems No resolved problems to display. Active Non-Hospital Problems Diagnosis TIA (transient ischemic attack) Right sided numbness [...] Unspecified hearing loss Scheduled Medications: insulin lispro 0-6 Units Subcutaneous Q4H PAULIE [START ON 02/24/2024] insulin glargine (Lantus;Semglee) (100 unit/mL) subcutaneous injection 17 UnitsSubcutaneous Daily polyethylene glycoL (MIRALAX) oral powder 17 g Oral Daily senna-docusate 2 tablet Oral BID acetaminophen 975 mg Oral Q6H PAULIE insulin lispro 0-15 Units Subcutaneous TID WC carvediloL 12.5 mg Oral BID WC piperacillin-tazobactam 3.375 g Intravenous Q12H vitamin B Complex-vitamin C-folic Acid 1 tablet Oral Daily cholecalciferol 1,000 Units Oral Daily calcium carbonate 500 mg Oral TID WC amLODIPine 10 mg Oral Daily aspirin 81 mg Oral Daily atorvastatin 40 mg Oral QPM pregabalin 100 mg Oral BID sodium chloride 0.9 % (flush) 5 mL Intravenous BID heparin (porcine) 5,000 Units Subcutaneous Q8H PAULIE sevelamer carbonate 1,600 mg Oral TID WC dilTIAZem CD 120 mg Oral Daily Objective: Temp: [36.7 ??C (98.1 ??F)-37.2 ??C (99 ??F)] Heart Rate: [63-67] Resp: [14-18] BP: (112-166)/(61-79) SpO2: [86 %-98 %] Heart Rate from SpO2: [63 bpm-94 bpm] BMI: Weight: 86.2 kg (190 lb) (02/18/24 1406) Intake/Output Summary (Last 24 hours) at 02/23/2024 1020 Last data filed at 02/23/2024 0800 Gross per 24 hour Intake 560 ml Output 0 ml Net 560 ml PHYSICAL EXAM: General: NAD, resting comfortably HEENT: Normocephalic, atraumatic Heart:: regular rate Pulmonary: non-labored breathing Abdomen: soft, ND Neuro: no focal deficits Extremities: RLE: Edematous, eschar on heel with no evidence of drainage, small amount of surrounding erythema, painted with betadine LLE: Dressing in place, Kerlix and JA, no evidence of hematoma Labs: Recent Labs 02/23/24 0411 02/22/24 0453 02/21/24 1915 02/21/24 0602 WBC 16.1* 16.4* -- 13.0* HGB 6.9* 8.1* 8.3* 8.0* HCT 21.6* 25.3* 27.4* 25.8* PLATELET 388* 434* -- 510* Recent Labs 02/23/24 0411 02/22/24 0453 02/21/24 0602 NA 137 137 139 K 4.9 4.3 5.1* CL 98 99 101 CO2 26 28 26 BUN 34* 25* 46* CREATININE 7.00* 5.47* 8.39* PHOS 5.5* 4.4 5.2* CALCIUM 8.5 8.4* 9.2 Microbiology: 02/17 Bcx: NGTD 02/17 MRSA: negative 02/18 Bcx: NGTD 02/20 Bcx: NGTD New Studies: None Assessment & Plan: Gerson Bruner is a 58 y.o. male with a history of end-stage renal disease on HD, TIA (2019, thought to be secondary to small vessel disease), and diabetes who is now 2 Days Post-Op a left BKA. He isrecovering well from that and we will keep the dressing and antibiotics until POD 3. Acute blood loss anemia following surgery, will plan to give 1u pRBC during HD today. Appreciate APS/regional team for further pain management (on tylenol, lyrica, robaxin, oxycodone, nerve cath), will consider TCA/ketamine but will be cautious given baseline mental status). - Transfuse 1u pRBC during HD - OOB today with PT/OT - Dressing to stay on until POD 3 (02/23) - Continue IV vanc/zosyn until dressing is off and if incision is clean - Nephro consult for HD, last HD 02/20 - BIT consult - Prevalon boot to RLE - SQH DVT ppx - ASA, Statin - Renal diet 2 GM NA; //90 CHO counting level 4 Jean Henning MD 02/23/2024 Pager: [phone] * Renu Gil, DATE NIGHT SITTER - 02/23/2024 6:44 AM EDT Follow Up Diabetes Consult Patient Interview Spent time today reviewing patient's glucose levels, insulin use and chart notes. Reviewed recommendations with patient and RN. Objective Temp: [36.7 ??C (98.1 ??F)-37.2 ??C (99 ??F)] Heart Rate: [63] Resp: [14-18] BP: (112-135)/(61-68) SpO2: [86 %-98 %] Heart Rate from SpO2: [63 bpm-73 bpm] Current Regimen from previous note 1. Lantus 20 units daily 2. Lispro moderate correction scale for BG>140 extended 3. Lispro 1unit: 6 gm carb ratio for each meal Recent Glucose Levels Recent Labs 02/23/24 0406 02/23/24 0206 02/23/24 0042 02/22/24 2334 02/22/24 1942 02/22/24 1600 02/22/24 1148 02/22/24 0809 02/22/24 0335 02/21/24 2357 02/21/24201402/21/24 1808 POCGLU 100 86 79 76 174 190 163 132 139 182 105 104 ASSESSMENT Patient is a 58 y.o. years old male with PMH significant for DM (Last A1C of 11.6%) who was admitted on 02/18/2024 for Non-healing wound of heel. Diabetes uncontrolled and currently complicated by unknown insulin requirement. Currently with variability of blood glucose levels while hospitalized requiring adjustment of insulin regimen and DM medications. Glucose dropped over night . Recommend decreasing glargine to 10 units. (Already got 20 units this morning - will start new dose tomorrow). Due to glucose drop after breakfast, changed carb ratio from 1:6 to 1:15. Reduced correction insulin to 1:30>150 PLAN 1. Lantus 10 units daily 2. Lispro custom correction scale of 1:30>150 3. Lispro 1unit: 15 gm carb ratio for each meal Renu Gil APRN [facility]ocr[facility] Diabetes Management Pager [phone] minute visit was spent evaluating diabetes and treatment plan, reviewing all glucose and insulindata as well as relevant laboratory results , and coordination of care on the inpatient unit including nursing and primary team. * Mary Kenny MD - 02/22/2024 3:51 PM EDT Images from the original note were not included. [facility] NEPHROLOGY/HYPERTENSION DIALYSIS PROGRESS NOTE PATIENT: Gerson Bruner : 1965 Ken Greer MD REASON FOR CONSULTATION: ESRD Management INTERVAL HISTORY: S/p L BKA yesterday Patient seen and examined at bedside. He complained of severe pain at dite of surgery that kept himawake all night. Otherwise, no complaints or concerns expressed. He is planned for dialysis tomorrow. ROS: 4 point review of sytem was done, everything was negative except for what was mentioned above. INTAKE/OUTPUTS: Intake/Output Summary (Last 24 hours) at 02/22/2024 1552 Last data filed at 02/22/2024 0336 Gross per 24 hour Intake 1030 ml Output 200 ml Net 830 ml MEDICATIONS: polyethylene glycoL (MIRALAX) oral powder 17 g Oral Daily senna-docusate 2 tablet Oral BID acetaminophen 975 mg Oral Q6H PAULIE insulin glargine (Lantus;Semglee) (100 unit/mL) subcutaneous injection 20 Units Subcutaneous Daily insulin lispro 0-9 Units Subcutaneous Q4H PAULIE insulin lispro 0-15 Units Subcutaneous TID carvediloL 12.5 mg Oral BID piperacillin-tazobactam 3.375 g Intravenous Q12H vitamin B Complex-vitamin C-folic Acid 1 tablet Oral Daily cholecalciferol 1,000 Units Oral Daily calcium carbonate 500 mg Oral TID WC amLODIPine 10 mg Oral Daily aspirin 81 mg Oral Daily atorvastatin 40 mg Oral QPM pregabalin 100 mg Oral BID sodium chloride 0.9 % (flush) 5 mL Intravenous BID heparin (porcine) 5,000 Units Subcutaneous Q8H [facility] sevelamer carbonate 1,600 mg Oral TID dilTIAZem CD 120 mg Oral Daily Vasoactive/Sedating Meds: ROpivacaine VITALS: Last value Range last 24 hrs Temperature Temp: 37 ??C (98.6 ??F) Temp: [36.2 ??C (97.2 ??F)-37.3 ??C (99.1 ??F)] Heart Rate Heart Rate: 76 Heart Rate: [67-76] Blood Pressure BP: 126/63 BP: (118-154)/(60-71) Respiratory Rate Resp: 17 Resp: [14-20] SpO2 SpO2: 91 % SpO2: [81 %-100 %] Ventilator: Mode Rate TV PEEP FiO2 Pplateau PHYSICAL EXAM: Patient is awake alert not [...] motor examination is grossly normal. slight asterixis. STUDIES: LABS: CBC: Recent Labs 02/22/24 0453 02/21/24 1915 02/21/24 0602 02/20/24 0521 WBC 16.4* -- 13.0* 11.4* HGB 8.1* 8.3* 8.0* 7.6* PLATELET 434* -- 510* 448* Chemistry: Recent Labs 02/22/24 0453 02/21/24 0602 02/20/24 0521 NA 137 139 139 K 4.3 5.1* 4.2 CL 99 101 101 CO2 28 26 26 BUN 25* 46* 37* CREATININE 5.47* 8.39* 6.78* GLUCOSE 143 96 94 Recent Labs 02/22/24 0453 02/21/24 0602 02/20/24 0521 CALCIUM 8.4* 9.2 9.0 MAGNESIUM 0.81 0.93 -- PHOS 4.4 5.2* -- ABG (Arterial Blood Gas) Recent Labs 02/18/24 1516 LACTATEVEN 1.0 VBG (Venous Blood Gas) Recent Labs 02/18/24 1516 PHVEN 7.39 GWH0WIT 48 PO2VEN 22* PMJ0CAA 28.3 LACTATEVEN 1.0 Mixed Venous Sat No results for input(s): H8QVIH1 in the last 168 hours. LFT's: Recent Labs 02/22/24452 ALBUMIN 2.8* Prot/Cre Ratio Date Value Ref Range Status 02/06/2019 6.6 ratio Final Lab Results Component Value Date TPROTEINPEP 6.4 04/07/2018 ALBELECT 3.83 04/07/2018 Lab Results Component Value Date MICROALBUR 577.9 06/13/2015 Lab Results Component Value Date HA1C 12.4 (H) 05/04/2019 HA1C 11.2 (H) 03/07/2019 HA1C 10.7 (H) 08/10/2018 Lab Results Component Value Date PTH 45 02/06/2019 CALCIUM 8.4 (L) 02/22/2024 PHOS 4.4 02/22/2024 25-OH Vit D Total (ng/mL) Date Value Status 05/04/2019 29 (L) Final MICROBIOLOGY: Procedure Component Value Units Date/Time MRSA PCR Screen ([facility] [place]) [[id number]] Collected: 02/18/242301 Lab Status: Final result Specimen: Nasopharyngeal Swab Updated: 02/19/24 1723 MRSA Result Negative MRSA Interp -- Methicillin-resistant Staphylococcus aureus (MRSA) is NOT DETECTED The MRSA target DNA sequences (mec and SCC) were not detected within the acceptable ranges using the Xpert MRSA NxG on the GeneXpert Dx System ([employer]). This suggests the absence of MRSA in the patient specimen submitted for testing. This test is cleared by the U.S. Food and Drug Administration for clinical use and its performance characteristics have been verified by the [facility] at [facility]. This result does not rule out the presence of any other organisms. Rare false negative results may occur if MRSA is present at low concentrations with much higher concentrations of other organisms including MRSE or S. aureus with an empty SCC cassette. Comment: [VERIFIED DATE]02.19.24 Verified By:Shaina Goff (Electronic Signature) Blood culture [[id number]] Collected: 02/18/24 1500 Lab Status: Preliminary result Specimen: Blood Updated: 02/19/24 2302 Blood Culture No growth at 1 day. Blood culture [[id number]] Collected: 02/18/24 1415 Lab Status: Preliminary result Specimen: Blood from Antecubital, Right Updated: 02/19/24 1501 Blood Culture No growth at 1 day. IMAGING: N/A ASSESSMENT/IMPRESSIONS + PLAN: 1) ESRD on HD - Impressions: No significant indications for HD. Patient dialyzed yesterday according to his MWF schedule. - Access: LUE AVF - Schedule: MWF; Next dialysis: 02/22 - Prescription for Next Dialysis: Duration:4; Na:140; Bicarb:35; Temp:35; Dialyzer:F200; BFR:400cc/min; DFR:2xBFR; UF:1-3kg; BVM: Profile: B - Anticoagulation: Hold heparin in setting of recent BKA - Additional Recs: - Protect LUE from venopuncture or BP measurements. - Would obtain blood cultures 2) Hemodynamics - Impressions: Stable - Pressures: BP between 140 - 150 systolics - Recommendations / Therapies: - Continue Amlodipine 10mg daily - Continue Coreg 12.5mg BID - Continue Diltiazem 120mg daily 3) Anemia / Hemoglobin - Impressions: Hgb = 8.0; - Recommendations / Therapy: - Will defer Anemia management to outpatient dialysis for now - Please prescribe nephrocaps daily - Will administer EPO 10,000U during HD 4) Bone Mineral Health - Impressions: Defer BMD labs to outpatient unit - Recommendations / Therapy: - Continue Renvela 1600mg TID - Would continue Vit D 1000UT daily - Would continue home low-dose TUMS daily with meals 5) Electrolytes - Impressions: Stable - Recommendations / Therapy: - Management with HD Thanks for letting us participate in the care of this patient. 02/22/[address] Jordan Kenny Nephrology and HTN Fellow Associated attestation - Jordan Sepulveda MD - 02/23/2024 9:27 AM EDT Patient was seen and examined in person with the renal fellow Dr. Kenny. Assessment and plan were formulated after discussion with me and I agree with them. Please see her notes for details. * Felton Márquez MD - 02/22/2024 9:33 AM EDT Vascular Surgery Progress Note Gerson Bruner is a 58 y.o. male with past medical history significant for end- stage renal disease on HD (last HD 02/18/2024), TIA (2018, thought to be secondary to small vessel disease), and diabeteswho presents with bilateral heel ulcers, left worse than right. The patient estimates that these have been here for approximately 1 to 2 months, and he follows with a paper final inspector for these. He presented to [facility] yesterday after noting fevers and after his VNA identified worsening redness of the left foot. The patient denies any increased pain, numbness, or tingling. He states that at baseline he does not ambulate much. The patient has not had any vascular interventions in the past, although he has been evaluated by avascular surgeon at [facility] who determined that he does not have any indication for revascularization based on his toe pressures. The patient takes Eliquis at baseline for A-fib, however he ran out approximately 1 week ago and has not taken it during that time. Active Hospital Problems Diagnosis Non-healing open wound of heel Resolved Hospital Problems No resolved problems to display. Active Non-Hospital Problems Diagnosis TIA (transient ischemic attack) Right sided numbness [...] Cigarette smoker Unspecified hearing loss Scheduled Medications: polyethylene glycoL (MIRALAX) oral powder 17 g Oral Daily senna-docusate 2 tablet Oral BID acetaminophen 975 mg Oral Q6H PAULIE insulin glargine (Lantus;Semglee) (100 unit/mL) subcutaneous injection 20 Units Subcutaneous Daily insulin lispro 0-9 Units Subcutaneous Q4H PAULIE insulin lispro 0-15 Units Subcutaneous TID WC carvediloL 12.5 mg Oral BID WC piperacillin-tazobactam 3.375 g Intravenous Q12H vitamin B Complex-vitamin C-folic Acid 1 tablet Oral Daily cholecalciferol 1,000 Units Oral Daily calcium carbonate 500 mg Oral TID WC amLODIPine 10 mg Oral Daily aspirin 81 mg Oral Daily atorvastatin 40 mg Oral QPM pregabalin 100 mg Oral BID sodium chloride 0.9 % (flush) 5 mL Intravenous BID heparin (porcine) 5,000 Units Subcutaneous Q8H PAULIE sevelamer carbonate 1,600 mg Oral TID WC dilTIAZem CD 120 mg Oral Daily Operations This Hospitalization: 02/18/24: L through ankle guillotine amputation. 02/21/24: L below knee amputation 24hr Event/ Subjective: - OR yesterday for above procedure - Nerve cath in place, APS/regional team following - NAEO - Pain this AM is uncontrolled, patient is somewhat somnolent - Afebrile, HDS - WBC 16.4 (13.0), Hgb 8.1 (8.3) Objective: Temp: [36.2 ??C (97.2 ??F)-37.3 ??C (99.1 ??F)] Heart Rate: [66-76] Resp: [13-20] BP: (118-162)/(60-78) SpO2: [81 %-100 %] Heart Rate from SpO2: [64 bpm-77 bpm] BMI: Weight: 86.2 kg (190 lb) (02/18/24 1406) Intake/Output Summary (Last 24 hours) at 02/22/2024 0933 Last data filed at 02/22/2024 0336 Gross per 24 hour Intake 1030 ml Output 3700 ml Net -2670 ml PHYSICAL EXAM: General: NAD, resting comfortably HEENT: PERRL, anicteric sclerae Neck: trachea midline Heart:: regular rate Pulmonary: non-labored breathing Abdomen: soft, non tender, non distended Neuro: no focal deficits Extremities: RLE: Edematous, eschar on heel with no evidence of drainage, small amount of surrounding erythema. DP/PT doppler signals present LLE: Dressing in place, Kerlix and JA, no evidence of hematoma Labs: Recent Labs 02/22/24 0453 02/21/24 1915 02/21/24 0602 02/20/24 0521 WBC 16.4* -- 13.0* 11.4* HGB 8.1* 8.3* 8.0* 7.6* HCT 25.3* 27.4* 25.8* 24.6* PLATELET 434* -- 510* 448* Recent Labs 02/22/24 0453 02/21/24 0602 02/20/24 0521 NA 137 139 139 K 4.3 5.1* 4.2 CL 99 101 101 CO2 28 26 26 BUN 25* 46* 37* CREATININE 5.47* 8.39* 6.78* PHOS 4.4 5.2* -- CALCIUM 8.4* 9.2 9.0 Microbiology: New Studies: Assessment & Plan: Gerson Bruner is a 58 y.o. male with a history of end-stage renal disease on HD, TIA (2019, thought to be secondary to small vessel disease), and diabetes who is now 1 Day Post-Op a left BKA. He is recovering well from that and we will keep the dressing and antibiotics until POD 3. We have reachedout to nephrology for HD tomorrow (02/22). We have also contacted the APS/regional team for further pain management (on tylenol, lyrica, robaxin, oxycodone, nerve cath), will consider TCA/ketamine but will be cautious given baseline mental status). - OOB today with PT/OT - Dressing to stay on until POD 3 (02/23) - Continue IV vanc/zosyn until dressing is off and if incision is clean - Nephro consult for HD, last HD 02/20 - BIT consult - Prevalon boot to RLE - SQH DVT ppx - ASA, Statin - Renal diet 2 GM NA Felton Márqeuz MD 02/22/2024 Pager: [phone] * Hector Diaz MD - 02/22/2024 7:38 AM EDT Acute Pain Service and Regional Anesthesia Catheter Progress Note Date of Encounter: 02/22/2024 Responsible Attending: Patrica Greene MD House Staff / Associate Provider: Hector Diaz MD ID: Patient is POD# 1 s/p left BKA for which the patient received a left popliteal sciatic nerve catheter for post-operative pain control. Subjective: Today the patient has adequate pain control and at present states pain is 5 out of 10. Patient has been using the bolus feature intermittently. Patient has been able to tolerate PO analgesics and an oral diet without nausea or vomiting. Patient is intermittently sleepy this morning. Objective: Temp: [36.2 ??C (97.2 ??F)-37.3 ??C (99.1 ??F)] Heart Rate: [61-76] Resp: [13-20] BP: (119-162)/(60-93) SpO2: [81 %-100 %] Heart Rate from SpO2: [61 bpm-77 bpm] Gen: Patient supine, moaning in pain and intermittently falling asleep while conversing Nerve catheter is running 0.2% ropivacaine at 6 ml/hr Patient controled bolus of 3 ml with a lockout of 30 min Catheter dressing is clean, dry, and intact. No bruising, erythema, swelling or discharge at insertion site. Motor: Patient is able to raise LLE without issue No evidence of local anesthetic toxicity Dressing on LLE stump Coags: No results found for: INR, PT, PTT Meds: SubQ heparin 5K units q8h scheduled for VTE ppx Assessment: Peripheral nerve catheter for post-operative pain control, currently with adequate paincontrol. Plan: Continue popliteal sciatic catheter infusion 6ml/hr ropivacaine Bolus feature remains as above. Anticipate removal of nerve catheter on POD#2 Consider addition of TCA for phantom pain Continue current multimodal regimen including pregabalin. Will continue to follow along with you, please page the Regional Anesthesia Team [phone]) with any questions or concerns. Thank you for the opportunity to have participated in the care of this patient. Update 12noon: Catheter bolus given of 10ml 2% lidocaine with spread visualized around CP/TN with ultrasound, redressed and infusion continued. Hector Diaz MD 02/22/2024 7:30am Regional Anesthesia Fellow Regional Anesthesia team pager [phone] * Elle Finn RN - 02/21/2024 9:59 PM EDT Gerson arrived from PACU at 2009. This RN oriented patient to room, to staff and to use of call martinez system. Sp02 in the low 90s on 3L/NC. Ambit pump intact. Call martinez within reach. Bed alarm on. * Jayy Elaine MD - 02/21/2024 8:24 PM EDT Surgery Post Op Check Gerson Bruner is a 58 y.o. male status post LEFT BKA S: No nausea/vomiting, chest pain, SOB, pain well controlled, offers no complaints O: Temp: [36.2 ??C (97.2 ??F)-36.7 ??C (98.1 ??F)] Heart Rate: [66-76] Resp: [13-20] BP: (127-162)/(64-78) SpO2: [90 %-100 %] Heart Rate from SpO2: [66 bpm-70 bpm] I/O last 3 completed shifts: In: 2830 [P.O.:2280; I.V.:200; Blood:350] Out: 3700 [Other:3500; Blood:200] No intake/output data recorded. Physical Exam General: NAD, resting comfortably HEENT: PERRL, anicteric sclerae CVS: Regular rate Pulm: Breathing comfortably on 2Lt NC Abd: soft, non tender, non distended Ext: RLE: No edema. Skin warm and pink. No tissue loss. Brisk capillary refill LLE: c/d/I dressing wrapped with ja. Block catheter to LLE. Neuro: CN 2-12 grossly intact, nonfocal, moving all extremities. Sensation intact in extremities bilaterally symmetric. Motor function intact in extremities, bilaterally symmetric. AP Gerson Bruner is a 58 y.o. male status post left BKA currently in stable condition and recovering well - pain well controlled (Naropin infusion managed by APS) - Bed rest - Renal diet 2Gr Na - hemodynamically stable - UOP adequate Jayy Elaine MD Vascular Surgery 02/21/24 * Ruby Dolan RN - 02/21/2024 7:56 PM EDT Xander was A&Ox4 with VSS on RA. In AM, patient went to dialysis. Upon return, AM medications weregiven. One hypoglycemic blood glucose reading upon return from dialysis, patient was asymptomatic, treated with IV dextrose. Limited assessment completed today due to patient going to block area and then to OR. * Karli Fletcher RN - 02/21/2024 6:33 PM EDT 1830) Assuming care of patient. Patient ripping off BP cuff and trying to remove IV's. Telling me he will punch you in the face?. Anesthesia paged for help managing patient and Precedex administered. Jessi DASILVA 1909) Lab calls and lab sample (H/H) clotted. Able to redraw from PIV.. Jessi DASILVA 1914) Floor called looking for at patient's request. Also called here on the phone. Jessi DASILVA 1924) Able to get now on the phone and brought in at patient's bedside. Jessi DASILVA 1934) Handoff accepted to receiving floor RN. Jessi DASILVA 1999) Ambit pump here and APS able to begin infusion. Awaiting transportation. Jessi DASILVA * Annette Rodriguez RN - 02/21/2024 6:08 PM EDT Arrived from OR in bed. Attached to monitors and alarms set appropriately for patient. Left leg wrapped in ja bandage, CDI Hand off to VIDYA Calivllo * Mary Kenny MD - 02/21/2024 1:39 PM EDT Images from the original note were not included. [facility] NEPHROLOGY/HYPERTENSION DIALYSIS PROGRESS NOTE PATIENT: Gerson Bruner : 1965 Ken Greer MD REASON FOR CONSULTATION: ESRD Management INTERVAL HISTORY: Patient seen and examined during dialysis. No complaints or concerns expressed. Planning for RTOR for complete amputation later today per vascular surgery. ROS: 4 point review of sytem was done, everything was negative except for what was mentioned above. INTAKE/OUTPUTS: Intake/Output Summary (Last 24 hours) at 02/21/2024 1339 Last data filed at 02/21/2024 0400 Gross per 24 hour Intake 1540 ml Output 0 ml Net 1540 ml MEDICATIONS: insulin glargine (Lantus;Semglee) (100 unit/mL) subcutaneous injection 20 Units Subcutaneous Daily insulin lispro 0-9 Units Subcutaneous Q4H [facility] insulin lispro 0-15 Units Subcutaneous TID vancomycin 1 g Intravenous Once [START ON 02/22/2024] carvediloL 12.5 mg Oral BID WC carvediloL 12.5 mg Oral Once piperacillin-tazobactam 3.375 g Intravenous Q12H vitamin B Complex-vitamin C-folic Acid 1 tablet Oral Daily cholecalciferol 1,000 Units Oral Daily calcium carbonate 500 mg Oral TID amLODIPine 10 mg Oral Daily aspirin 81 mg Oral Daily atorvastatin 40 mg Oral QPM pregabalin 100 mg Oral BID sodium chloride 0.9 % (flush) 5 mL Intravenous BID heparin (porcine) 5,000 Units Subcutaneous Q8H PAULIE acetaminophen 650 mg Oral Q6H PAULIE sevelamer carbonate 1,600 mg Oral TID dilTIAZem CD 120 mg Oral Daily Vasoactive/Sedating Meds: VITALS: Last value Range last 24 hrs Temperature Temp: 36.7 ??C (98.1 ??F) Temp: [36.4 ??C (97.5 ??F)-36.9 ??C (98.4 ??F)] Heart Rate Heart Rate: 66 Heart Rate: [61-66] Blood Pressure BP: 157/75 BP: (119-157)/(66-93) Respiratory Rate Resp: 18 Resp: [16-20] SpO2 SpO2: 96 % SpO2: [92 %-99 %] Ventilator: Mode Rate TV PEEP FiO2 Pplateau PHYSICAL EXAM: Patient is awake alert not [...] motor examination is grossly normal. slight asterixis. STUDIES: LABS: CBC: Recent Labs 02/21/24 0602 02/20/24 0502/19/24 0528 WBC 13.0* 11.4* 12.9* HGB 8.0* 7.6* 8.0* PLATELET 510* 448* 371* Chemistry: Recent Labs 02/21/24 0602 02/20/24 0521 02/19/24 0528 NA 139 139 137 K 5.1* 4.2 3.8 CL 101 101 100 CO2 26 26 23 BUN 46* 37* 27* CREATININE 8.39* 6.78* 4.81* GLUCOSE 96 94 164 Recent Labs 02/21/24 0602 02/20/24 0521 02/19/24 0528 CALCIUM 9.2 9.0 8.8 MAGNESIUM 0.93 -- -- PHOS 5.2* -- -- ABG (Arterial Blood Gas) Recent Labs 02/18/24 1516 LACTATEVEN 1.0 VBG (Venous Blood Gas) Recent Labs 02/18/24 1516 PHVEN 7.39 QYO5VHR 48 PO2VEN 22* LEC5OBE 28.3 LACTATEVEN 1.0 Mixed Venous Sat No results for input(s): [id number] in the last 168 hours. LFT's: No results for input(s): BILITOT, BILIDIR, ALBUMIN, ALKPHOS, ALT, AST in the last 7068 hours. Prot/Cre Ratio Date Value Ref Range Status 02/06/2019 6.6 ratio Final Lab Results Component Value Date TPROTEINPEP 6.4 04/07/2018 ALBELECT 3.83 04/07/2018 Lab Results Component Value Date MICROALBUR 577.9 06/13/2015 Lab Results Component Value Date HA1C 12.4 (H) 05/04/2019 HA1C 11.2 (H) 03/07/2019 HA1C 10.7 (H) 08/10/2018 Lab Results Component Value Date PTH 45 02/06/2019 CALCIUM 9.2 02/21/2024 PHOS 5.2 (H) 02/21/2024 25-OH Vit D Total (ng/mL) Date Value Status 05/04/2019 29 (L) Final MICROBIOLOGY: Procedure Component Value Units Date/Time MRSA PCR Screen [place] [place] [[id number]] Collected: 02/18/24 2302 Lab Status: Final result Specimen: Nasopharyngeal Swab Updated: 02/19/24 1723 MRSA Result Negative MRSA Interp -- Methicillin-resistant Staphylococcus aureus (MRSA) is NOT DETECTED The MRSA target DNA sequences (mec and SCC) were not detected within the acceptable ranges using the Xpert MRSA NxG on the GeneXpert Dx System ([employer]). This suggests the absence of MRSA in the patient specimen submitted for testing. This test is cleared by the U.S. Food and Drug Administration for clinical use and its performance characteristics have been verified by the [facility] at [facility]. This result does not rule out the presence of any other organisms. Rare false negative results may occur if MRSA is present at low concentrations with much higher concentrations of other organisms including MRSE or S. aureus with an empty SCC cassette. Comment: [VERIFIED DATE]02.19.24 Verified By:Shaina Goff (Electronic Signature) Blood culture [[id number]] Collected: 02/18/24 1500 Lab Status: Preliminary result Specimen: Blood Updated: 02/19/24 2302 Blood Culture No growth at 1 day. Blood culture [[id number]] Collected: 02/18/24 1415 Lab Status: Preliminary result Specimen: Blood from Antecubital, Right Updated: 02/19/24 1501 Blood Culture No growth at 1 day. IMAGING: N/A ASSESSMENT/IMPRESSIONS + PLAN: 1) ESRD on HD - Impressions: No significant indications for HD. Patient dialyzed yesterday according to his MWF schedule. - Access: LUE AVF - Schedule: MWF; Next dialysis: 02/22 - Prescription for Next Dialysis: Duration:4; Na:140; Bicarb:35; Temp:35; Dialyzer:F200; BFR:400cc/min; DFR:2xBFR; UF:1-3kg; BVM: Profile: B - Anticoagulation: OK for heparin 4000U per vascular surgery - Additional Recs: - Protect LUE from venopuncture or BP measurements. - Would obtain blood cultures 2) Hemodynamics - Impressions: Stable - Pressures: BP between 140 - 150 systolics - Recommendations / Therapies: - Continue Amlodipine 10mg daily - Continue Coreg 12.5mg BID - Continue Diltiazem 120mg daily 3) Anemia / Hemoglobin - Impressions: Hgb = 8.0; - Recommendations / Therapy: - Will defer Anemia management to outpatient dialysis for now - Please prescribe nephrocaps daily - Will administer EPO 10,000U during HD 4) Bone Mineral Health - Impressions: Defer BMD labs to outpatient unit - Recommendations / Therapy: - Continue Renvela 1600mg TID - Would continue Vit D 1000UT daily - Would continue home low-dose TUMS daily with meals 5) Electrolytes - Impressions: Stable - Recommendations / Therapy: - Management with HD Thanks for letting us participate in the care of this patient. 02/21/[address] Jordan Kenny Nephrology and HTN Fellow Associated attestation - Jordan Sepulveda MD - 02/21/2024 3:49 PM EDT Patient was seen and examined in person with the renal fellow Dr. Kenny multiple times on hemodialysis. Patient appeared to feel overloaded with mild JVD and leg edema. Ultrafiltration goal adjusted. Crit-Line is reviewed. Assessment and plan were formulated after discussion with me and I agree with them. Please see her notes for details. * Ruby Mcgill APRN - 02/21/2024 8:23 AM EDT Vascular Surgery Progress Note Gerson Bruner is a 58 y.o. male with past medical history significant for end- stage renal disease on HD (last HD 02/18/2024), TIA (2018, thought to be secondary to small vessel disease), and diabeteswho presents with bilateral heel ulcers, left worse than right. The patient estimates that these have been here for approximately 1 to 2 months, and he follows with a paper final inspector for these. He presented to [facility] yesterday after noting fevers and after his VNA identified worsening redness of the left foot. The patient denies any increased pain, numbness, or tingling. He states that at baseline he does not ambulate much. The patient has not had any vascular interventions in the past, although he has been evaluated by avascular surgeon at [facility] who determined that he does not have any indication for revascularization based on his toe pressures. The patient takes Eliquis at baseline for A-fib, however he ran out approximately 1 week ago and has not taken it during that time. Active Hospital Problems Diagnosis Non-healing open wound of heel Resolved Hospital Problems No resolved problems to display. Active Non-Hospital Problems Diagnosis TIA (transient ischemic attack) Right sided numbness [...] Cigarette smoker Unspecified hearing loss Scheduled Medications: heparin (porcine) 4,000 Units Intravenous Once in dialysis insulin glargine (Lantus;Semglee) (100 unit/mL) subcutaneous injection 20 Units Subcutaneous Daily piperacillin-tazobactam 3.375 g Intravenous Q12H vitamin B Complex-vitamin C-folic Acid 1 tablet Oral Daily cholecalciferol 1,000 Units Oral Daily calcium carbonate 500 mg Oral TID WC amLODIPine 10 mg Oral Daily aspirin 81 mg Oral Daily atorvastatin 40 mg Oral QPM carvediloL 12.5 mg Oral BID WC pregabalin 100 mg Oral BID insulin lispro 2-12 Units Subcutaneous Q4H PAULIE sodium chloride 0.9 % (flush) 5 mL Intravenous BID heparin (porcine) 5,000 Units Subcutaneous Q8H PAULIE acetaminophen 650 mg Oral Q6H PAULIE sevelamer carbonate 1,600 mg Oral TID WC dilTIAZem CD 120 mg Oral Daily Operations This Hospitalization: 02/18/24: L through ankle guillotine amputation. 24hr Event/ Subjective: - Afebrile, HDS - Pain well managed - NPO completion amp today - WBC 13 from 11 Objective: Temp: [36.4 ??C (97.5 ??F)-36.9 ??C (98.4 ??F)] Heart Rate: [61-69] Resp: [16-20] BP: (119-140)/(66-93) SpO2: [91 %-97 %] Heart Rate from SpO2: [60 bpm-68 bpm] BMI: Weight: 86.2 kg (190 lb) (02/18/24 1406) Intake/Output Summary (Last 24 hours) at 02/21/2024 0823 Last data filed at 02/21/2024 0400 Gross per 24 hour Intake 2280 ml Output 0 ml Net 2280 ml PHYSICAL EXAM: General: NAD, resting comfortably HEENT: PERRL, anicteric sclerae Neck: trachea midline Heart:: regular rate Pulmonary: non-labored breathing Abdomen: soft, non tender, non distended Neuro: no focal deficits Extremities: RLE: Edematous, eschar on heel with no evidence of drainage, small amount of surrounding erythema. DP/PT doppler signals present LLE: Dressing removed, healthy appearing muscle and bone, small amount s/s drainage. Labs: Recent Labs 02/21/24 0602 02/20/24 0521 02/19/24 0528 02/18/24 1415 WBC 13.0* 11.4* 12.9* 13.8* HGB 8.0* 7.6* 8.0* 7.2* HCT 25.8* 24.6* 25.8* 22.1* PLATELET 510* 448* 371* 440* Recent Labs 02/21/24 0602 02/20/24 0521 02/19/24 0528 02/18/24 1415 NA 139 139 137 135 K 5.1* 4.2 3.8 3.7 CL 101 101 100 97* CO2 26 26 23 27 BUN 46* 37* 27* 18 CREATININE 8.39* 6.78* 4.81* 3.48* PHOS 5.2* -- -- -- CALCIUM 9.2 9.0 8.8 8.6 Microbiology: New Studies: Assessment & Plan: Gerson Bruner is a 58 y.o. male 3 Days Post-Op left through ankle guillotine amputation. HDS, afebrile, AUOP, pain well managed, tolerated dressing change at bedside this am. Lengthy discussion regarding rationale for higher completion BKA after guillotine amputation. Patient endorsing lack of readiness for this as he worries he won't be able to walk and is also concerned that he will eventuallyface amputation of right foot. Stated I should just shoot myself in the head now and get it over with . Vascular called to discuss. - Nephro consult for HD, last HD 02/17 - BIT consult - Prevalon boot to RLE - RTOR 02/20 for completion amputation - NPO - consent in media - active T&S - SQH DVT ppx - ASA, Statin - bedrest - Carb control diet Ruby Mcgill APRN 02/21/2024 Pager: [phone] * Radha Biswas MD - 02/20/2024 2:25 PM EDT Images from the original note were not included. [facility] NEPHROLOGY/HYPERTENSION DIALYSIS PROGRESS NOTE PATIENT: Gerson Bruner : 1965 Ken Greer MD REASON FOR CONSULTATION: ESRD Management INTERVAL HISTORY: Planning for RTOR for complete amputation tomorrow per vascular surgery. ROS: 4 point review of sytem was done, everything was negative except for what was mentioned above. INTAKE/OUTPUTS: Intake/Output Summary (Last 24 hours) at 02/20/2024 1425 Last data filed at 02/20/2024 1234 Gross per 24 hour Intake 2319 ml Output 225 ml Net 2094 ml MEDICATIONS: piperacillin-tazobactam 3.375 g Intravenous Q12H vitamin B Complex-vitamin C-folic Acid 1 tablet Oral Daily cholecalciferol 1,000 Units Oral Daily calcium carbonate 500 mg Oral TID WC amLODIPine 10 mg Oral Daily aspirin 81 mg Oral Daily atorvastatin 40 mg Oral QPM carvediloL 12.5 mg Oral BID WC pregabalin 100 mg Oral BID insulin lispro 2-12 Units Subcutaneous Q4H PAULIE insulin glargine (Lantus;Semglee) (100 unit/mL) subcutaneous injection 55 Units Subcutaneous Daily sodium chloride 0.9 % (flush) 5 mL Intravenous BID heparin (porcine) 5,000 Units Subcutaneous Q8H PAULIE acetaminophen 650 mg Oral Q6H PAULIE sevelamer carbonate 1,600 mg Oral TID WC dilTIAZem CD 120 mg Oral Daily Vasoactive/Sedating Meds: VITALS: Last value Range last 24 hrs Temperature Temp: 36.8 ??C (98.2 ??F) Temp: [36.6 ??C (97.9 ??F)-37 ??C (98.6 ??F)] Heart Rate Heart Rate: 69 Heart Rate: [65-69] Blood Pressure BP: 139/69 BP: (128-154)/(62-80) Respiratory Rate Resp: 17 Resp: [16-20] SpO2 SpO2: 94 % SpO2: [91 %-94 %] Ventilator: Mode Rate TV PEEP FiO2 Pplateau PHYSICAL EXAM: Patient is awake alert not [...] motor examination is grossly normal. slight asterixis. STUDIES: LABS: CBC: Recent Labs 02/20/24 0502/19/24 0502/18/24 1415 WBC 11.4* 12.9* 13.8* HGB 7.6* 8.0* 7.2* PLATELET 448* 371* 440* Chemistry: Recent Labs 02/20/24 0502/19/24 0528 02/18/24 1415 NA 139 137 135 K 4.2 3.8 3.7 CL 101 100 97* CO2 BUN 37* 27* 18 CREATININE 6.78* 4.81* 3.48* GLUCOSE 94 164 211* Recent Labs 02/20/24 0502/19/24 0502/18/24 1415 CALCIUM 9.0 8.8 8.6 ABG (Arterial Blood Gas) Recent Labs 02/18/24 1516 LACTATEVEN 1.0 VBG (Venous Blood Gas) Recent Labs 02/18/24 1516 PHVEN 7.39 IFH3TBT 48 PO2VEN 22* NNY4ZDU 28.3 LACTATEVEN 1.0 Mixed Venous Sat No results for input(s): [id number] in the last 168 hours. LFT's: No results for input(s): BILITOT, BILIDIR, ALBUMIN, ALKPHOS, ALT, AST in the last 7068 hours. Prot/Cre Ratio Date Value Ref Range Status 02/06/2019 6.6 ratio Final Lab Results Component Value Date TPROTEINPEP 6.4 04/07/2018 ALBELECT 3.83 04/07/2018 Lab Results Component Value Date MICROALBUR 577.9 06/13/2015 Lab Results Component Value Date HA1C 12.4 (H) 05/04/2019 HA1C 11.2 (H) 03/07/2019 HA1C 10.7 (H) 08/10/2018 Lab Results Component Value Date PTH 45 02/06/2019 CALCIUM 9.0 02/20/2024 PHOS 4.8 (H) 05/04/2019 25-OH Vit D Total (ng/mL) Date Value Status 05/04/2019 29 (L) Final MICROBIOLOGY: Procedure Component Value Units Date/Time MRSA PCR Screen [place] [place] [[id number]] Collected: 02/18/24 2302 Lab Status: Final result Specimen: Nasopharyngeal Swab Updated: 02/19/24 1723 MRSA Result Negative MRSA Interp -- Methicillin-resistant Staphylococcus aureus (MRSA) is NOT DETECTED The MRSA target DNA sequences (mec and SCC) were not detected within the acceptable ranges using the Xpert MRSA NxG on the GeneXpert Dx System ([employer]). This suggests the absence of MRSA in the patient specimen submitted for testing. This test is cleared by the U.S. Food and Drug Administration for clinical use and its performance characteristics have been verified by the [facility] at [facility]. This result does not rule out the presence of any other organisms. Rare false negative results may occur if MRSA is present at low concentrations with much higher concentrations of other organisms including MRSE or S. aureus with an empty SCC cassette. Comment: [VERIFIED DATE]02.19.24 Verified By:Shaina Goff (Electronic Signature) Blood culture [[id number]] Collected: 02/18/24 1500 Lab Status: Preliminary result Specimen: Blood Updated: 02/19/24 2302 Blood Culture No growth at 1 day. Blood culture [[id number]] Collected: 02/18/24 1415 Lab Status: Preliminary result Specimen: Blood from Antecubital, Right Updated: 02/19/24 1501 Blood Culture No growth at 1 day. IMAGING: N/A ASSESSMENT/IMPRESSIONS + PLAN: 1) ESRD on HD - Impressions: No significant indications for HD. Patient dialyzed yesterday according to his MWF schedule. - Access: LUE AVF - Schedule: MWF; Next dialysis: 02/20 - Prescription for Next Dialysis: Duration:4; Na:140; Bicarb:35; Temp:35; Dialyzer:F200; BFR:400cc/min; DFR:2xBFR; UF:1-3kg; BVM: Profile: B - Anticoagulation: OK for heparin 4000U per vascular surgery - Additional Recs: - Protect LUE from venopuncture or BP measurements. - Would obtain blood cultures - Plan to complete HD in AM 2) Hemodynamics - Impressions: Stable - Pressures: BP between 140 - 150 systolics - Recommendations / Therapies: - Continue Amlodipine 10mg daily - Continue Coreg 12.5mg BID - Continue Diltiazem 120mg daily 3) Anemia / Hemoglobin - Impressions: Hgb = 7.6; - Recommendations / Therapy: - Will defer Anemia management to outpatient dialysis for now - Please prescribe nephrocaps daily - Will administer EPO 10,000U during HD 4) Bone Mineral Health - Impressions: Defer BMD labs to outpatient unit - Recommendations / Therapy: - Continue Renvela 1600mg TID - Would continue Vit D 1000UT daily - Would continue home low-dose TUMS daily with meals 5) Electrolytes - Impressions: Stable - Recommendations / Therapy: - Management with HD Thanks for letting us participate in the care of this patient. 02/20/2024 Radha Biswas M.D., M.P.H., M.H.A., M.A. PGY-V Nephrology-Hypertension Fellow Page # [phone] 2nd floor, [employer] [address] [place] [address] Associated attestation - Fareed Bryant MD - 02/20/2024 5:36 PM EDT I saw and discussed the patient with the fellow and agree with the assessment and plan in his note.Patient is anticipating further amputation per vascular surgery in the coming days. Will plan for dialysis per routine tomorrow February 20 * Ruby Mcgill APRN - 02/20/2024 9:43 AM EDT Vascular Surgery Progress Note Gerson Bruner is a 58 y.o. male with past medical history significant for end- stage renal disease on HD (last HD 02/18/2024), TIA (2018, thought to be secondary to small vessel disease), and diabeteswho presents with bilateral heel ulcers, left worse than right. The patient estimates that these have been here for approximately 1 to 2 months, and he follows with a paper final inspector for these. He presented to [facility] yesterday after noting fevers and after his VNA identified worsening redness of the left foot. The patient denies any increased pain, numbness, or tingling. He states that at baseline he does not ambulate much. The patient has not had any vascular interventions in the past, although he has been evaluated by avascular surgeon at [facility] who determined that he does not have any indication for revascularization based on his toe pressures. The patient takes Eliquis at baseline for A-fib, however he ran out approximately 1 week ago and has not taken it during that time. Active Hospital Problems Diagnosis Non-healing open wound of heel Resolved Hospital Problems No resolved problems to display. Active Non-Hospital Problems Diagnosis TIA (transient ischemic attack) Right sided numbness [...] Cigarette smoker Unspecified hearing loss Scheduled Medications: piperacillin-tazobactam 3.375 g Intravenous Q12H vitamin B Complex-vitamin C-folic Acid 1 tablet Oral Daily cholecalciferol 1,000 Units Oral Daily calcium carbonate 500 mg Oral TID WC amLODIPine 10 mg Oral Daily aspirin 81 mg Oral Daily atorvastatin 40 mg Oral QPM carvediloL 12.5 mg Oral BID WC pregabalin 100 mg Oral BID insulin lispro 2-12 Units Subcutaneous Q4H [facility] insulin glargine (Lantus;Semglee) (100 unit/mL) subcutaneous injection 55 Units Subcutaneous Daily sodium chloride 0.9 % (flush) 5 mL Intravenous BID heparin (porcine) 5,000 Units Subcutaneous Q8H [facility] acetaminophen 650 mg Oral Q6H PAULIE sevelamer carbonate 1,600 mg Oral TID WC dilTIAZem CD 120 mg Oral Daily Operations This Hospitalization: 02/18/24: L through ankle guillotine amputation. 24hr Event/ Subjective: - Afebrile, HDS - Pain well managed - tolerated bedside dressing change - expressing concern about a higher level amputation with completion surgery Objective: Temp: [36.6 ??C (97.9 ??F)-37.2 ??C (99 ??F)] Heart Rate: [65-69] Resp: [16-20] BP: (128-154)/(62-80) SpO2: [91 %-95 %] Heart Rate from SpO2: [61 bpm-66 bpm] BMI: Weight: 86.2 kg (190 lb) (02/18/24 1406) Intake/Output Summary (Last 24 hours) at 02/20/2024 0943 Last data filed at 02/20/2024 0347 Gross per 24 hour Intake 1699 ml Output 225 ml Net 1474 ml PHYSICAL EXAM: General: NAD, resting comfortably HEENT: PERRL, anicteric sclerae Neck: trachea midline Heart:: regular rate Pulmonary: non-labored breathing Abdomen: soft, non tender, non distended Neuro: no focal deficits Extremities: RLE: Edematous, eschar on heel with no evidence of drainage, small amount of surrounding erythema. DP/PT doppler signals present LLE: Dressing removed, healthy appearing muscle and bone, small amount s/s drainage. Labs: Recent Labs 02/20/24 0521 02/19/24 0528 02/18/24 1415 WBC 11.4* 12.9* 13.8* HGB 7.6* 8.0* 7.2* HCT 24.6* 25.8* 22.1* PLATELET 448* 371* 440* Recent Labs 02/20/24 0521 02/19/24 0528 02/18/24 1415 NA 139 137 135 K 4.2 3.8 3.7 CL 101 100 97* CO2 26 23 27 BUN 37* 27* 18 CREATININE 6.78* 4.81* 3.48* CALCIUM 9.0 8.8 8.6 Microbiology: New Studies: Assessment & Plan: Gerson Bruner is a 58 y.o. male 2 Days Post-Op left through ankle guillotine amputation. HDS, afebrile, AUOP, pain well managed, tolerated dressing change at bedside this am. Lengthy discussion regarding rationale for higher completion BKA after guillotine amputation. Patient endorsing lack of readiness for this as he worries he won't be able to walk and is also concerned that he will eventuallyface amputation of right foot. Will engage BIT tomorrow morning for support. - Nephro consult for HD, last HD 02/17 - Prevalon boot to RLE - RTOR 02/20 for completion amputation - NPO MN 02/20 - consent in media - active T&S - SQH DVT ppx - ASA, Statin - bedrest - Carb control diet Ruby Mcgill APRN 02/20/2024 Pager: [phone] * Ruby Mcgill APRN - 02/19/2024 1:42 PM EDT Vascular Surgery Progress Note Gerson Bruner is a 58 y.o. male with past medical history significant for end- stage renal disease on HD (last HD 02/18/2024), TIA (2018, thought to be secondary to small vessel disease), and diabeteswho presents with bilateral heel ulcers, left worse than right. The patient estimates that these have been here for approximately 1 to 2 months, and he follows with a paper final inspector for these. He presented to [facility] yesterday after noting fevers and after his VNA identified worsening redness of the left foot. The patient denies any increased pain, numbness, or tingling. He states that at baseline he does not ambulate much. The patient has not had any vascular interventions in the past, although he has been evaluated by avascular surgeon at [facility] who determined that he does not have any indication for revascularization based on his toe pressures. The patient takes Eliquis at baseline for A-fib, however he ran out approximately 1 week ago and has not taken it during that time. Active Hospital Problems Diagnosis Non-healing open wound of heel Resolved Hospital Problems No resolved problems to display. Active Non-Hospital Problems Diagnosis TIA (transient ischemic attack) Right sided numbness [...] Cigarette smoker Unspecified hearing loss Scheduled Medications: piperacillin-tazobactam 3.375 g Intravenous Q12H amLODIPine 10 mg Oral Daily aspirin 81 mg Oral Daily atorvastatin 40 mg Oral QPM carvediloL 12.5 mg Oral BID WC pregabalin 100 mg Oral BID insulin lispro 2-12 Units Subcutaneous Q4H [facility] insulin glargine (Lantus;Semglee) (100 unit/mL) subcutaneous injection 55 Units Subcutaneous Daily sodium chloride 0.9 % (flush) 5 mL Intravenous BID heparin (porcine) 5,000 Units Subcutaneous Q8H [facility] acetaminophen 650 mg Oral Q6H PAULIE sevelamer carbonate 1,600 mg Oral TID WC dilTIAZem CD 120 mg Oral Daily Operations This Hospitalization: 02/18/24: L through ankle guillotine amputation. 24hr Event/ Subjective: - Afebrile, HDS - Pain well managed - tolerated bedside dressing change Objective: Temp: [36.3 ??C (97.3 ??F)-37.5 ??C (99.5 ??F)] Heart Rate: [64-77] Resp: [16-26] BP: (133-182)/(56-74) SpO2: [85 %-100 %] Heart Rate from SpO2: [59 bpm-73 bpm] BMI: Weight: 86.2 kg (190 lb) (02/18/24 1406) Intake/Output Summary (Last 24 hours) at 02/19/2024 1342 Last data filed at 02/19/2024 1015 Gross per 24 hour Intake 1465 ml Output 100 ml Net 1365 ml PHYSICAL EXAM: General: NAD, resting comfortably HEENT: PERRL, anicteric sclerae Neck: trachea midline Heart:: regular rate Pulmonary: non-labored breathing Abdomen: soft, non tender, non distended Neuro: no focal deficits Extremities: RLE: Edematous, eschar on heel with no evidence of drainage, small amount of surrounding erythema. DP/PT doppler signals present LLE: Dressing removed, healthy appearing muscle and bone, small amount s/s drainage. Labs: Recent Labs 02/19/24 0528 02/18/24 1415 WBC 12.9* 13.8* HGB 8.0* 7.2* HCT 25.8* 22.1* PLATELET 371* 440* Recent Labs 02/19/24 0528 02/18/24 1415 NA 137 135 K 3.8 3.7 CL 100 97* CO2 23 27 BUN 27* 18 CREATININE 4.81* 3.48* CALCIUM 8.8 8.6 Microbiology: New Studies: Assessment & Plan: Gerson Bruner is a 58 y.o. male 1 Day Post-Op left through ankle guillotine amputation. HDS, afebrile, AUOP, pain well managed, tolerated dressing change at bedside this am. - Nephro consult for HD, last HD 02/17 - Prevalon boot to RLE - RTOR 02/20 for completion amputation - NPO MN 02/20 - consent in media - active T&S - SQH DVT ppx - ASA, Statin - bedrest - Carb control diet Ruby Mcgill APRN 02/19/2024 Pager: [phone] * Ke Carter, [facility] - 02/18/2024 10:51 PM EDT Clinical Pharmacist Note - VancFD Gerson Bruner [id number] Gerson Bruner is a 58 y.o. male who is starting antibiotic therapy which includes intravenous vancomycin. Based on a review of the patient???s chart and/or conversation with the patient???s providers vancomycin is being used for empiric coverage of bilateral foot wounds with a targeted goal of 15 - 20 mcg/mL. The following Pharmacokinetic data has been evaluated: Wt Readings from Last 1 Encounters: 02/18/24 86.2 kg (190 lb) Ht Readings from Last 1 Encounters: 02/18/24 177.8 cm (5' 10) Labs: Creatinine clearance: Creatinine (mg/dL) Date Value 02/18/2024 3.48 (H) Dosing recommendations: Based on this information, vancomycin therapy will be initiated with a one-time dose of 2250 mg to be given x1. A full dosing regimen will be ordered upon complete pharmacist consultation to follow. We will continue to monitor the patient as long as he remains on vancomycin therapy. Thank you for this consult and please page the care area pharmacist with any questions you may have. Alternately, during off-hours (9p-7a) you may call [phone] to contact a pharmacist. Ke Carter RPH * Hector Landers MD - 02/18/2024 9:49 PM EDT Surgery Post Op Check Gerson Bruner is a 58 y.o. male status post left guillotine BKA S: No nausea/vomiting, chest pain, SOB, pain well controlled. Looking forward to eating a meal O: Temp: [36.3 ??C (97.3 ??F)] Heart Rate: [73] Resp: [16] BP: (133)/(65) SpO2: [96 %] Heart Rate from SpO2: -- No intake/output data recorded. No intake/output data recorded. Physical Exam General: NAD, resting comfortably HEENT: PERRL, anicteric sclerae CVS: Regular rate Pulm: Breathing comfortably on 3L nc Abd: soft, non tender, non distended Ext: RLE: No edema. Skin warm and pink. No tissue loss. Brisk capillary refill LLE: Dressing intact with some sanguinous strikethrough posteriorly. Neuro: CN 2-12 grossly intact, nonfocal, moving all extremities. Sensation intact in extremities bilaterally symmetric. Motor function intact in extremities, bilaterally symmetric. AP: Gerson Bruner is a 58 y.o. male status post left Guillotine BKA currently in stable condition and recovering well. - Pain well controlled - Hemodynamically stable - Diet: Resume carb control diet Hector Landers MD Vascular Surgery 02/18/24 * Cheyenne Hansen RN - 02/18/2024 7:33 PM EDT 1924: Patient arrived to [facility] from OR. Vital signs stable. Alarms audible and set appropriately. Report received from surgical service and anesthesia. Left BKA site dressing clean, dry, intactwith small amount of strikethrough. PRBCs infusing on arrival. Patient in no apparent distress. 2030: Patient resting in bed. Appears comfortable. Denies pain and nausea. Tolerating ice chips andsips of water. Report given to VIDYA Kelley on L4WD. documented in this encounter H&P Notes * Smitha Layne RN - 02/25/2024 3:46 PM EDT Patient discharged to rehab. IV removed, site benign. Patient denies chest pain and shortness of breath. Discussed pain management with patient, pain tolerable. Patient medicated prior to discharge. Patient has all belongings. Patient received discharge instructions, these were reviewed. Patient verbalized understanding. Patient was encouraged to call with questions or concerns. Discharge packet and prescriptions given to facility. Patient discharged to rehab facility via ambulance. Report called to rehab facility. * Marti Garcia MD - 02/18/2024 6:11 PM EDT Vascular Surgery History and Physical HPI: Gerson Sykes is a 58-year-old male with past medical history significant for end-stage renal disease on HD (last HD 02/18/2024), TIA (2018, thought to be secondary to small vessel disease), and diabetes who presents with bilateral heel ulcers, left worse than right. The patient estimates that these have been here for approximately 1 to 2 months, and he follows with a paper final inspector for these. He presented to [facility] yesterday after noting fevers and after his VNA identified worsening redness of the left foot. The patient denies any increased pain, numbness, or tingling. He states that at baseline he does not ambulate much. The patient has not had any vascular interventions in the past, although he has been evaluated by avascular surgeon at [facility] who determined that he does not have any indication for revascularization based on his toe pressures. The patient takes Eliquis at baseline for A-fib, however he ran out approximately 1 week ago and has not taken it during that time. Patient Active Problem List Diagnosis TIA (transient ischemic attack) Right sided numbness [...] Leg cramps Cigarette smoker Unspecified hearing loss There are no hospital problems to display for this patient. Active Non-Hospital Problems Diagnosis TIA (transient ischemic attack) Right sided numbness [...] Leg cramps Cigarette smoker Unspecified hearing loss Review of Systems: A full review encompassing at least 10 organ systems including general, neuro, pulm, cardiac, GI, , MSK, Endo, and Psych was negative other than listed in the HPI. Past Medical History: Past Medical History: Diagnosis [...] 11.9) performed by Scout Reese MD at [facility] MAIN OR PRO COLONOSCOPY, REMV LESN, SNARE N/A 09/26/2019 COLONOSCOPY, POLYPECTOMY, REMOVAL LESION BY SNARE (WRVU 4.67) performed by Kaye Gibbs MD at [facility] ENDOSCOPY Functional Status: Lives at home, primarily mobilizes with wheelchair Social Hx: Social History Socioeconomic History Marital status: Spouse [...] Food Insecurity: Not on file Transportation Needs: Not on file Physical Activity: Not on file Intimate Partner Violence: Not on file Housing Stability: Not on file Family Hx: Negative for Thrombosis, Bleeding Disorders, Family History Problem Relation Age of Onset Diabetes Mother Cancer Father Diabetes Paternal Grandmother Heart Disease Paternal Grandfather Medications: No current facility-administered medications on file prior to encounter. Current Outpatient Medications on File Prior to Encounter Medication Sig Dispense Refill sevelamer (Renagel) 800 mg Tablet 2 tablets, 3 times a day with each meal 180 tablet 5 carvediloL (Coreg) 12.5 mg Tablet Take 1 tablet by mouth 2 times daily (with meals). 60 tablet 11 atorvastatin (LIPITOR) 40 mg Tablet Take 1 tablet by mouth every evening. 90 tablet 3 aspirin 81 mg Tablet, Chewable Take 81 mg by mouth daily. 30 tablet 3 FREESTYLE DERICK 14 DAY READER [facility] Use to continuously monitor blood glucose. Scan at least 5 times/day. Dx: 1 each 1 flash glucose sensor (FREESTYLE DERICK 14 DAY SENSOR) Kit q14 days as instructed. Indication= E11.216 kit 3 HUMALOG KWIKPEN 100 unit/mL Insulin Pen Inject subcutaneously 3 times daily. Sliding Scale 0 lidocaine-prilocaine (EMLA) Cream Apply 1 Application topically as needed. 3 furosemide (LASIX) 80 mg Tablet Take 1 tablet by mouth 2 times daily. (Patient taking differently: Take 40 mg by mouth 2 times daily.) 180 tablet 3 blood sugar diagnostic strips (ONETOUCH ULTRA TEST) Strip 1 each by Other route 2 times daily (before meals). Dx code 250.02 uses insulin 100 each 11 insulin detemir U-100 (LEVEMIR) Insulin Pen Inject 55 Units subcutaneously nightly. 10 mL 12 lancets Misc Inject 1 each subcutaneously 2 times daily (before meals). Dx code 250.02 uses each 11 hydrALAZINE (APRESOLINE) 25 mg Tablet Take 1 tablet by mouth 3 times daily. 90 tablet 3 ranitidine (ZANTAC) 150 mg Tablet Take 150 mg by mouth 2 times daily. 0 nortriptyline (PAMELOR) 25 mg Capsule Take 25 mg by mouth nightly. 0 amLODIPine (NORVASC) 10 mg Tablet Take 1 tablet by mouth daily. 90 tablet 3 pregabalin (LYRICA) 100 mg Capsule Take 100 mg by mouth 2 times daily. multivitamin (THERAGRAN) Tablet Take 1 tablet by mouth daily. Insulin Thornton, Disposable, 31 X 5/16 Needle Inject 1 each subcutaneously 2 times daily (before meals). 100 each 11 Allergies: Allergies Allergen Reactions Clindamycin Swelling. Gabapentin swelling Pregabalin Other reaction(s): Unsure Zoloft [Sertraline] Other reaction(s): Unsure Physical Exam: Vital Signs: Temp: [36.3 ??C (97.3 ??F)] Heart Rate: [73] Resp: [16] BP: (133)/(65) SpO2: [96 %] Heart Rate from SpO2: -- BMI: Weight: 86.2 kg (190 lb) General: alert, cooperative, NAD, resting comfortably HEENT: normocephalic, atraumatic CVS: Regular rate Pulm: Breathing comfortably on room air Abd: soft, non tender, non distended, no pulsatile masses Ext: RLE: Edematous, eschar on heel with no evidence of drainage, small amount of surrounding erythema. DP/PT doppler signals present LLE: Edematous, gangrene of heel with significant tissue loss probing to bone, extending from heel to midfoot, surrounding erythema onto forefoot and ankle Neuro: Grossly nonfocal, moving all extremities. Labs: Last 3 wbc, hgb, hct plt Recent Labs 02/18/24 1415 WBC 13.8* HGB 7.2* HCT 22.1* PLATELET 440* Last 3 Lytes Recent Labs 02/18/24 1415 NA 135 K 3.7 CL 97* CO2 27 BUN 18 CREATININE 3.48* Last 3 Coags Recent Labs 04/26/24 1415 PT 13.2* INR 1.2 PTT 32 Vascular Imaging: CT LLE: IMPRESSION 1. Large soft tissue wound/defect that [...] edema. Correlate clinically with evidence of cellulitis. Vascular Studies: ABIs 02/18/24: Findings: Right Pressure (mm Hg) Waveform TBI Brachial Artery 190 Dorsalis Pedis (Ankle) Artery >240 Piatt-Biphasic Posterior Tibial (Ankle) Artery >240 Monophasic Great [...] 0.50(-.56) 0.45(-.24) ---- Assessment and Plan: Gerson Sykes is a 58-year-old male with nonhealing ulcers of his bilateral heels, with the left grossly infected. Given the appearance of the wound and the patient's recent fevers, he requires urgent source control as these wounds are unlikely to heal. The patient does not haveany evidence of treatable macrovascular disease, however does have what appears to be severe microvascular disease. - To OR tonight for left guillotine through ankle amputation - Zosyn, MRSA swab to determine need for vanc - Active type and screen 02/18/2024 6:14 PM Associated attestation - Ari Renae MD - 02/18/2024 9:24 PM EDT I have seen and examined the patient, providing olivares components as outlined below. I have reviewed the resident???s above note; my evaluation of the patient is below: B/l heel ulcers, L with deep necrosis, draining purulence. Pt presents febrile, otherwise normal vitals. L foot is unsalvagable due to severely infected, large ulceration of heel and plantar surface of foot. Guillotine L through ankle amputation for source control. Will likely need transfusion given chronic anemia hg 7.2 on presentation. IV antibiotics Ari Renae MD documented in this encounter ED Notes * Thee Magaña PA - 02/18/2024 5:21 PM EDT Images from the original note were not included. ED Provider Note HPI: Gerson Bruner is a 58 y.o. male with history of diabetes, ESRD, on dialysis Wednesday, hypertension, continued tobacco use, and peripheral vascular disease who presents to the Emergency Department with bilateral heel wounds. He reports that his left heel has been more bothersome to him and he was recently at [facility] and [facility] and was told that he likely needs an amputation of his left foot. He reports that he had a CT scan at [facility] yesterday and was told that he has osteomyelitis in the heel. Patient left that hospital as hewanted to get his care through [facility] and drove here today. Does report having fevers last night. ROS as per HPI Vitals: ED Triage Vitals [02/18/24 1406] BP: 133/65 Heart Rate: 73 Resp: 16 Temp: 36.3 ??C (97.3 ??F) Temp src: Temporal SpO2: 96 % O2 Device: RA O2 Flow Rate (L/min): n/a Physical Exam Vitals and nursing note reviewed. Constitutional: Appearance: Normal appearance. He is well-developed. HENT: Head: Atraumatic. Eyes: Pupils: Pupils are equal, round, and reactive to light. Neck: Trachea: No tracheal deviation. Cardiovascular: Rate and Rhythm: Normal rate. Pulmonary: Effort: Pulmonary effort is normal. Musculoskeletal: General: Normal range of motion. Skin: General: Skin is warm and dry. Findings: No rash. Comments: S sky, and significant necrotic tissue all about the left heel. There is purulent material coming from the wound. There is also a foul smell. I am not able to palpate a pulse in the left foot. Wound noted to right heel. No purulent drainage or discharge noted. Palpable dorsalis pedis and posterior tibialis pulse on the right side. Neurological: General: No focal deficit present. Mental Status: He is alert and oriented to person, place, and time. Psychiatric: Mood and Affect: Mood normal. ED Course: I have reviewed labs and imaging, images and available reports, and they are significant for: XR Foot Min 3 views Bilat (Generic) Final Result 1. No radiographic evidence of advanced acute [...] versus gas-forming infection. Correlate with surgical history/timing. Thank you for letting us participate in the care of this patient. If you are a health care provider and have any questions regarding this report, please contact the number below. For patients who have questions please contact the health reservoir caretaker that requested your imaging first. Request For 2nd Read CT Lower Extremity (Results Pending) ED Course as of 02/18/247 WedFeb 18, 2024 1728 Glucose Lvl(!): 211 1729 Creatinine(!): 3.48 On dialysis Wednesday, Wednesday, Wednesday 172 Hemoglobin(!): 7.2 1729 WBC(!): 13.8 Procedures Assessment and Plan: 58 y.o. male with poorly controlled diabetes, tobacco abuse, end-stage renal disease, on dialysis, Wednesday and Wednesday, and peripheral vascular disease presents to the emergency department with wounds on his bilateral heels. Reports the wounds have both been there for several months howeverrecently they have gotten much worse. He was recently at [facility] for thewound to his left foot and was recommended that he come to [facility] for potential amputation as he has significant necrosis of the skin and osteomyelitis in his left heel. Upon arrival here he is hemodynamically stable. His blood glucose is elevated. His hemoglobin is also 7.2. He deniesany bleeding from anywhere. I have contacted vascular surgery as well as orthopedics upon his arrival. Vascular surgery has evaluated the patient and will take the patient to the operating room for a left BKA. Case signed out to the evening provider. Did this case involve critical care? No The visit findings, diagnosis, and care plan were discussed with the patient. Thee Magaña PA 02/18/241905 * Maria A Mallory, DATE NIGHT SITTER - 02/18/2024 1:58 PM EDT In-Triage Brief Provider Note: Brief HPI: 58-year-old male with significant complex past medical history presents after being seen at [facility] yesterday and was advised to come directly to [facility] due to concern of osteomyelitis and possible requiring amputation secondary to severe PVD however was unable to get to [facility] until today. Scanned note from patient's [facility] visit yesterday indicates that patient was also recently hospitalized at [facility]. CT images from an [facility] have been pushed to [facility]. Patient is also a F dialysis patient. Patient had fevers yesterday. Patient denies increased pain, numbness or tingling. Patient presented to the ER asyesterday after [facility]NA was concerned for fever and worsening redness to the left foot. Limited Exam: Patient arrives in wheelchair, NAD with stable vital signs and afebrile. Tests Ordered: Labs, requested second read of CT from yesterday Requires further evaluation in the emergency department. Stable to return to the waiting room. Maria A Mallory APRN 02/18/24 1406 documented in this encounter Miscellaneous Notes * Consult Note - Thu Holguin LCKerry - 02/25/2024 12:50 PM EDT BIT (Behavioral Intervention Team) Patient stated that he feels he's in good hands and looking forward to discharging today. He is thinking about the future and asking about the next steps (ie: how to get a prosthetic, etc). When asked specifically about his desire to continue living his life even though he's had an amputation, he emphatically stated that he does want to live his life. Spoke privately with and mother who also reiterated that they are comfortable with his mental health status at this time. When asked about the patient's statement that he would end his life if he needed an amputation, they said that he said it when frustrated though doesn't mean it in terms oftaking action. The concerns they do have are related to his cognitive status. They described that he had been slipping prior to this hospitalization. They gave examples of him having difficulty remembering and tracking information. They have noticed that it has worsened since surgery and they feel worried abouthim. Mother asked how they can have this assessed and addressed. This clinician encouraged them to speak to his PCP about these concerns (since he's discharging today) so that the PCP can arrange forfurther evaluation in the future. They expressed some pessimism about this idea because his PCP left and he's not yet been assigned a new one. Encouraged them to prioritize establishing with a new PCP since he will definitely require medical follow up. Thu Holguin MA, [facility] Mental Chemo Services - BIT (Behavioral Intervention Team) Dept. of Psychiatry - Inpatient Psych. Services BIT Pager: [phone] * Consult Note - Candi Nowak RN - 02/25/2024 12:44 PM EDT Images from the original note were not included. Wound Care Nurse Note Situation: Asked to see Gersonharish Bruner by Jean Henning MD for R heel with necrotic pressure wound Background: eD-H notes reviewed for history, admitting diagnosis and active problem list. Wound Assessment and Care Provided: Patient seen this morning in room 426 in bed, reason for visit explained to patient, permission received to assess skin. Zflex boot already in place. Anatomical location: Right heel Dressing removed: Telfa, Gauze, and tape Wound: Black eschar covering 80% of wound, pale pink tissue 20%. Scant amount of serosanguineous drainage Periwound: dry and calloused Dressing applied: Mepilex border and Zflex boot Photos taken: Miller Score: 16 Last Pressure Ulcer Prevention assessment: Shift Pressure Injury Prevention Occiput: No Injury Thoracic Spine: No Injury Sacral: No Injury Ischial - left: No Injury Ischial - right: No Injury Heel - left: other (see comment) Heel - right: Existing Injury prior to this admission Elbow - left: No Injury Elbow - right: No Injury Device Sites: ja wraps, BP Cuff, IV sites, O2 sat monitor Other Sites: ID band Existing Wounds: Wound 02/21/242029 Right heel (Active) Wound WDL ex 02/25/24 1243 Dressing Appearance intact;dry 02/25/24 1243 Base moist;black eschar;reddened 02/25/24 1243 Area moist 02/25/24 1243 Drainage Characteristics/Odor serosanguineous 02/25/24 1243 Drainage Amount scant 02/25/24 1243 Dressing dressing removed;foam 02/25/24 1243 Wound Image 02/25/24 1243 Wound Vac: Nutritional Status Wt Readings from Last 1 Encounters: 02/18/24 86.2 kg (190 lb) Body mass index is 27.26 kg/m??. Labs Lab Results Component Value Date ALBUMIN 2.8 (L) 02/22/2024 ALBUMIN 3.4 03/08/2019 ALBUMIN 3.3 03/07/2019 CRP 148.6 (H) 02/18/2024 HA1C 12.4 (H) 05/04/2019 HA1C 11.2 (H) 03/07/2019 HA1C 10.7 (H) 08/10/2018 WBC 12.7 (H) 02/25/2024 WBC 14.1 (H) 02/24/2024 WBC 14.8 (H) 02/23/2024 HGB 8.4 (L) 02/25/2024 HGB 8.4 (L) 02/24/2024 HGB 9.7 (L) 02/23/2024 HCT 26.6 (L) 02/25/2024 HCT 25.8 (L) 02/24/2024 HCT 30.2 (L) 02/23/2024 PLATELET 482 (H) 02/25/2024 PLATELET 445 (H) 02/24/2024 PLATELET 476 (H) 02/23/2024 INR 1.2 02/18/2024 INR 0.9 03/07/2019 INR 0.8 08/10/2018 PT 13.2 (H) 02/18/2024 PT 10.7 03/07/2019 PT 9.1 (L) 08/10/2018 Nutritional Intake Nutrition Diet/Nutrition Received: renal Diet/Feeding Assistance: none Diet/Feeding Tolerance: good Intake (%): 0% Nutrition Risk Screen: no indicators present Current bed: Assessment: 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 Black eschar covering most of wound bed, so unable to determine how deep the wound actually is. No signs ofinfection at this time. Mepilex border to be placed after patient takes a shower. Continue with Zflex boot for offloading. Wound Care Recommendations: Right heel - Mepilex Border dressing-nursing to change every 3 days and as needed for dressing with50% or greater strike though drainage. 1. Cleanse wound with dermal wound cleanser and gauze. 2. Apply Mepilex Border dressing Z-Flex Boot 1. Remove Z-Flex from the bag. 2. Open all straps on Z-Flex and place the foot and lower leg in the boot with the heel centered over the aperture. The fluidized positioner should gently cradle the Achilles tendon proximal to the ankle. 3. Close the adjustable straps beginning with the one closest to the knee and work down towards the foot. The straps are elastic to accommodate the shape of the leg. Make sure they are secure but not too tight. You should be able to slide a finger between the boot and leg to confirm accurate fit. 4. Attach both sides of foot drop strap. Foot should be in neutral alignment. 5. To open the foot drop gate, detach the foot drop strap that is located on the side of the boot with the adjustable straps. When closing the boot, close the gate loosely around the foot and then close the straps exactly as you did for initial application. *For use on patient while in bed. DO NOT stand or walk while wearing due to fall risk. Periodically(once a shift) remove heel protector to assess skin. Discussed plan with: RN: Smitha Please contact Candi Nowak RN on secure chat or the wound care team at [phone] or pager [phone] with skin and wound care concerns or questions. * Care Management Discharge - Megan Green RN - 02/25/2024 11:20 AM EDT CARE MANAGEMENT FINAL DISCHARGE NOTE Chart reviewed, care reviewed with primary team and at interdisciplinary rounds. Patient is medically ready for discharge to [facility]. Needs for Transition of Care: Plan for discharge is: Retirement Facility / Swing Outpatient Agency/Support Group Needs: None Home Health Services: Registered Nurse, Physical Therapy, City Engineer, Occupational Therapy Agency Referrals & Follow-up Care: Contact information for follow-up [facility], [address] [address] [facility] [address] [facility] [id number] Transportation: is comfortable bringing the patient to [facility] and to and from dialysis MWF Wheelchair van/Ambulance? No Functional status prior to admission: Assistive Equipment and Assistive Person Home Environment: Others in the home: spouse, sibling(s) (brother's girlfriend). Current Living Arrangements: home/apartment/condo. Accessibility Concerns:2 NATE, FOS down to main living level. Current Functional Ability: Assistive Person and Equipment DME used at home: wheelchair - manual, grab bar - tub/shower, shower chair DME Needed at Discharge: Patient is insured through: Primary Insurance: MEDICARE Payor: MEDICARE / Plan: MEDICARE PART A & B / Product Type: *No Product type* / Secondary Insurance: N/A Prescription Coverage: Yes This plan was formulated with input from patient, and team. All are in agreement with plan. This CMspoke to the patients about driving the patient and she feels comfortable with taking the patient to [place] and to dialysis. PATRICIA Leigh,nurse auditor Team Case Management [phone] Pager #[phone] * Plan of Care - Zita Michelle RN - 02/25/2024 5:48 AM EDT OUTCOME EVALUATION NOTE: OUTCOME SUMMARY: Pt is AxOx4, VSS on RA, afebrile. No complaints of SOB, N/V, or chest pain. No BM noted this shift.Voiding minimally via urinal (HD patient) Pt c/o pain this shift, managed with tylenol, robaxin, and oxycodone. Q4 BG checks, insulin given when order parameters were met. Pt stated he was not going to eat dinner, insulin coverage was held by prior nurse. Pt seen eating food brought by family. Beenchasing BG this shift. L BKA dressing remains CDI. Right heel dressing is CDI. Pt sleeping comfortably between care. Plan of care is ongoing. PLAN MOVING FORWARD: Pain management Discharge planning Encourage ambulation Monitor VS and I&Os Dialysis M, W, F Q4 BG checks PT/OT INDIVIDUALIZED FALL PREVENTION INTERVENTIONS: Patient-specific fall risk factors per assessment: [current deficits]: Generalized weakness, unfamiliar environment, acute pain, lines, recent surgery, narcotics, L BKA, RLE heel wound Assistance [level of assistance required for transfers and ambulation]: 2 assist Supervision [direct monitoring required during toileting and ADLs]: Eyes on / Arms reach Surveillance [continuous indirect monitoring]: Call light within reach, room near unit station, purposeful rounding Patient-specific fall prevention interventions for sensory deficits provided, if applicable: Yes CARE PLAN GOAL OUTCOME EVALUATION: Problem: Adult Inpatient Plan [...] Ongoing (Interventions Implemented as Appropriate) Problem: Pain Acute Goal: Acceptable Pain Control and Functional Ability Outcome: Ongoing (Interventions Implemented as Appropriate) Problem: Infection Goal: Absence of Infection Signs and Symptoms Outcome: Ongoing (Interventions Implemented as Appropriate) Problem: Bleeding (Surgery Nonspecified) Goal: Absence of Bleeding Outcome: Ongoing (Interventions Implemented as Appropriate) Problem: Bowel Motility Impaired (Surgery Nonspecified) Goal: Effective Bowel Elimination Outcome: Ongoing (Interventions Implemented as Appropriate) Problem: Infection (Surgery Nonspecified) Goal: Absence of Infection Signs and Symptoms Outcome: Ongoing (Interventions Implemented as Appropriate) Problem: Ongoing Anesthesia Effects (Surgery Nonspecified) Goal: Anesthesia/Sedation Recovery Outcome: Ongoing (Interventions Implemented as Appropriate) Problem: Pain (Surgery Nonspecified) Goal: Acceptable Pain Control Outcome: Ongoing (Interventions Implemented as Appropriate) Problem: Postoperative Nausea and Vomiting (Surgery Nonspecified) Goal: Nausea and Vomiting Relief Outcome: Ongoing (Interventions Implemented as Appropriate) Problem: Postoperative Urinary Retention (Surgery Nonspecified) Goal: Effective Urinary Elimination Outcome: Ongoing (Interventions Implemented as Appropriate) Problem: [...] Impairment (Lower Extremity Amputation) Goal: Optimal Mobility Hood and Safety Outcome: Ongoing (Interventions Implemented as Appropriate) Problem: Pain and Hypersensitivity (Lower Extremity Amputation) Goal: Acceptable Pain/Hypersensitivity Control Outcome: Ongoing (Interventions Implemented as Appropriate) Problem: Prosthetic Use and Management (Lower Extremity Amputation) Goal: Effective Prosthesis Use and Management Outcome: Ongoing (Interventions Implemented as Appropriate) Problem: Impaired Wound Healing Goal: Optimal Wound Healing Outcome: Ongoing (Interventions Implemented as Appropriate) * Plan of Care - Kurt Ortega RN - 02/24/2024 4:52 PM EDT OUTCOME EVALUATION NOTE: OUTCOME SUMMARY: A&Ox4, VSS on RA. Patient is OSAGE. Patient reports severe intermittent sharp, shooting pain in left residual limb. PRN PO oxycodone given with desired effect. PT/OT worked with patient, used slideboard and gait belt to transfer patient to chair. Non-weight bearing to RLE heel maintained. Patientused BSC today and had BM. Family at bedside this afternoon, helpful and participating in care. 16:00 blood sugar: 210, 2 units of insulin given per parameters in DEC. Around 16:00 patient reports heartburn, Dr. Henning made aware because orders for tums had been discontinued. Pepcid ordered. Patient was bathed today, per provider orders. LLE dressing C/D/I. RLE heel wound dressed with kerlix and remains in zflex boot. IV abx discontinued today. Patient is upset throughout this shift about his diet orders, and does not appear to understand rationale and education about his diet orders. Patient rings call martinez appropriately. Will continue to monitor and update MD as needed. Plan of care isongoing. PLAN MOVING FORWARD: Pain management Q4 blood sugar monitoring Q4 vital signs HD M/W/F PT/OT Encourage OOB Discharge planning INDIVIDUALIZED FALL PREVENTION INTERVENTIONS: Patient-specific fall risk factors per assessment: [current deficits]: recent surgical procedure, impaired mobility, narcotic therapy for pain management, unfamiliar environment, tethering lines Assistance [level of assistance required for transfers and ambulation]: full assist x2 Supervision [direct monitoring required during toileting and ADLs]: eyes on Surveillance [continuous indirect monitoring]: room near nurses station, purposeful rounding Patient-specific fall prevention interventions for sensory deficits provided, if applicable: [X] Yes call martinez within reach, bed in low position, personal items within reach, lights adjusted to task CARE PLAN GOAL OUTCOME EVALUATION: Ongoing Problem: [...] Ongoing (Interventions Implemented as Appropriate) Problem: Pain Acute Goal: Acceptable Pain Control and Functional Ability Outcome: Ongoing (Interventions Implemented as Appropriate) Problem: Infection Goal: Absence of Infection Signs and Symptoms Outcome: Ongoing (Interventions Implemented as Appropriate) Problem: Bleeding (Surgery Nonspecified) Goal: Absence of Bleeding Outcome: Ongoing (Interventions Implemented as Appropriate) Problem: Bowel Motility Impaired (Surgery Nonspecified) Goal: Effective Bowel Elimination Outcome: Ongoing (Interventions Implemented as Appropriate) Problem: Infection (Surgery Nonspecified) Goal: Absence of Infection Signs and Symptoms Outcome: Ongoing (Interventions Implemented as Appropriate) Problem: Ongoing Anesthesia Effects (Surgery Nonspecified) Goal: Anesthesia/Sedation Recovery Outcome: Ongoing (Interventions Implemented as Appropriate) Problem: Pain (Surgery Nonspecified) Goal: Acceptable Pain Control Outcome: Ongoing (Interventions Implemented as Appropriate) Problem: Postoperative Nausea and Vomiting (Surgery Nonspecified) Goal: Nausea and Vomiting Relief Outcome: Ongoing (Interventions Implemented as Appropriate) Problem: Postoperative Urinary Retention (Surgery Nonspecified) Goal: Effective Urinary Elimination Outcome: Ongoing (Interventions Implemented as Appropriate) Problem: [...] Impairment (Lower Extremity Amputation) Goal: Optimal Mobility Hood and Safety Outcome: Ongoing (Interventions Implemented as Appropriate) Problem: Pain and Hypersensitivity (Lower Extremity Amputation) Goal: Acceptable Pain/Hypersensitivity Control Outcome: Ongoing (Interventions Implemented as Appropriate) Problem: Prosthetic Use and Management (Lower Extremity Amputation) Goal: Effective Prosthesis Use and Management Outcome: Ongoing (Interventions Implemented as Appropriate) Problem: Impaired Wound Healing Goal: Optimal Wound Healing Outcome: Ongoing (Interventions Implemented as Appropriate) * Care Management - Romeo Webber RN - 02/24/2024 3:51 PM EDT Based on discussions with the multi-disciplinary healthcare team, the patient would benefit from SNF / Swing level of care at discharge. I have met with the patient to: discuss discharge planning needs. provide the [facility], Office of Care Management letter from the State Appellate Clerk pertaining to rehab referrals. provide a letter describing our affiliations within the [facility] and educate about their right to choose where referrals are sent. provide the [facility] Star Quality Rating handout. review the different levels of rehab including SNF, swing, and acute. provide a list of facilities within their preferred geographic area. request that they provide at least three choices for referral. They have requested referrals to: [facility] ([facility]) [address] [place] [address] Note routed to a Vending Route Driver who will communicate referrals to facilities and provide any required information. * Plan of Care - Zita Michelle RN - 02/24/2024 5:28 AM EDT OUTCOME EVALUATION NOTE: OUTCOME SUMMARY: Pt is AxOx4, VSS on RA, afebrile. No complaints of SOB, N/V, or chest pain. One BM noted this shift. Voiding minimally via urinal (HD patient) Pt c/o pain this shift, managed with tylenol, robaxin, and oxycodone. Q4 BG checks, insulin not given as order parameters were not met. L BKA dressing remains CDI. Right heel dressing is CDI. Pt had a slight temperature for most of the shift (around 100F) with scheduled tylenol, Courtney aware. Pt reports that he needs to have a BM and that he needs to get to the toilet. Grainer Machine educated patient on the increased fall risk, NWB of the LLE and needing a offloading boot for RLE. Pt was frustrated and did not understand why [facility] Pt was eventually agreeable to stand-pivot with 2 assist and FWW to the bedside commode. Bed linens were changed, patient washed up, and dressed with a new gown and pants on patient .Pt sleeping comfortably between care. Plan of care is ongoing. PLAN MOVING FORWARD: Pain management Discharge planning Encourage ambulation Monitor VS and I&Os Q4 BG checks Dialysis M, W, F INDIVIDUALIZED FALL PREVENTION INTERVENTIONS: Patient-specific fall risk factors per assessment: [current deficits]: Generalized weakness, unfamiliar environment, acute pain, lines, recent surgery, narcotics, L BKA, RLE heel wound Assistance [level of assistance required for transfers and ambulation]: 2 assist Supervision [direct monitoring required during toileting and ADLs]: Eyes on / Arms reach Surveillance [continuous indirect monitoring]: Call light within reach, room near unit station, purposeful rounding Patient-specific fall prevention interventions for sensory deficits provided, if applicable: Yes CARE PLAN GOAL OUTCOME EVALUATION: Problem: Adult Inpatient Plan [...] Ongoing (Interventions Implemented as Appropriate) Problem: Pain Acute Goal: Acceptable Pain Control and Functional Ability Outcome: Ongoing (Interventions Implemented as Appropriate) Problem: Infection Goal: Absence of Infection Signs and Symptoms Outcome: Ongoing (Interventions Implemented as Appropriate) Problem: Bleeding (Surgery Nonspecified) Goal: Absence of Bleeding Outcome: Ongoing (Interventions Implemented as Appropriate) Problem: Bowel Motility Impaired (Surgery Nonspecified) Goal: Effective Bowel Elimination Outcome: Ongoing (Interventions Implemented as Appropriate) Problem: Infection (Surgery Nonspecified) Goal: Absence of Infection Signs and Symptoms Outcome: Ongoing (Interventions Implemented as Appropriate) Problem: Ongoing Anesthesia Effects (Surgery Nonspecified) Goal: Anesthesia/Sedation Recovery Outcome: Ongoing (Interventions Implemented as Appropriate) Problem: Pain (Surgery Nonspecified) Goal: Acceptable Pain Control Outcome: Ongoing (Interventions Implemented as Appropriate) Problem: Postoperative Nausea and Vomiting (Surgery Nonspecified) Goal: Nausea and Vomiting Relief Outcome: Ongoing (Interventions Implemented as Appropriate) Problem: Postoperative Urinary Retention (Surgery Nonspecified) Goal: Effective Urinary Elimination Outcome: Ongoing (Interventions Implemented as Appropriate) Problem: [...] Impairment (Lower Extremity Amputation) Goal: Optimal Mobility Hood and Safety Outcome: Ongoing (Interventions Implemented as Appropriate) Problem: Pain and Hypersensitivity (Lower Extremity Amputation) Goal: Acceptable Pain/Hypersensitivity Control Outcome: Ongoing (Interventions Implemented as Appropriate) Problem: Prosthetic Use and Management (Lower Extremity Amputation) Goal: Effective Prosthesis Use and Management Outcome: Ongoing (Interventions Implemented as Appropriate) Problem: Impaired Wound Healing Goal: Optimal Wound Healing Outcome: Ongoing (Interventions Implemented as Appropriate) * Plan of Care - Kurt Ortega RN - 02/23/2024 5:49 PM EDT OUTCOME EVALUATION NOTE: OUTCOME SUMMARY: A&Ox4, VSS on RA. Patient is OSAGE. Patient reports severe intermittent sharp, shooting pain in left residual limb. Ambit pump in place until ~15:00, removed at bedside by . Ambit pump site FLOORWALKER. Scheduled tylenol and PRN pain medications given, please refer to MAR. Patient went to HD this morning and received blood transfusion in HD. HD took 2.5 L of fluid off. Patient returned to WD ~13:15, glucose check was 69. Patient was given 125 mL OJ, recheck blood sugar was 57. Patient was given another 125 mL of OJ, recheck was 63. Patient was given glucose oral gel, recheck was 113. Family at bedside this afternoon, helpful and participating in care. Phlebotomy paged for H&H redraw. AM ca rvedilol was held for dialysis, and given following afternoon meal. Per pharmacist Ke Carter: might be best to give only 1 dose today and start BID Th -- You could do an extra set of vitals tonight and give later 2200 or 2300 if BP elevated ... My concern would be increased fall risk. Will pass this along to overnight caregiver RN. LLE dressing C/D/I. RLE heel wound cleansed with normal saline and iodine, and wrapped with kerlix, per Dr. Renae's verbal orders. IV abx given per orders. Patient rings call martinez appropriately. Will continue to monitor and update MD as needed. PLAN MOVING FORWARD: Pain management IV abx HD M/W/F PT/OT Discharge planning INDIVIDUALIZED FALL PREVENTION INTERVENTIONS: Patient-specific fall risk factors per assessment: [current deficits]: recent surgical procedure, impaired mobility, narcotic therapy for pain management, unfamiliar environment, tethering lines Assistance [level of assistance required for transfers and ambulation]: full assist x2 Supervision [direct monitoring required during toileting and ADLs]: hands on Surveillance [continuous indirect monitoring]: room near nurses station, purposeful rounding Patient-specific fall prevention interventions for sensory deficits provided, if applicable: [X] Yes call martinez within reach, bed in low position, personal items within reach CARE PLAN GOAL OUTCOME EVALUATION: Ongoing Problem: [...] Ongoing (Interventions Implemented as Appropriate) Problem: Pain Acute Goal: Acceptable Pain Control and Functional Ability Outcome: Ongoing (Interventions Implemented as Appropriate) Problem: Infection Goal: Absence of Infection Signs and Symptoms Outcome: Ongoing (Interventions Implemented as Appropriate) Problem: Bleeding (Surgery Nonspecified) Goal: Absence of Bleeding Outcome: Ongoing (Interventions Implemented as Appropriate) Problem: Bowel Motility Impaired (Surgery Nonspecified) Goal: Effective Bowel Elimination Outcome: Ongoing (Interventions Implemented as Appropriate) Problem: Infection (Surgery Nonspecified) Goal: Absence of Infection Signs and Symptoms Outcome: Ongoing (Interventions Implemented as Appropriate) Problem: Ongoing Anesthesia Effects (Surgery Nonspecified) Goal: Anesthesia/Sedation Recovery Outcome: Ongoing (Interventions Implemented as Appropriate) Problem: Pain (Surgery Nonspecified) Goal: Acceptable Pain Control Outcome: Ongoing (Interventions Implemented as Appropriate) Problem: Postoperative Nausea and Vomiting (Surgery Nonspecified) Goal: Nausea and Vomiting Relief Outcome: Ongoing (Interventions Implemented as Appropriate) Problem: Postoperative Urinary Retention (Surgery Nonspecified) Goal: Effective Urinary Elimination Outcome: Ongoing (Interventions Implemented as Appropriate) Problem: [...] Impairment (Lower Extremity Amputation) Goal: Optimal Mobility Hood and Safety Outcome: Ongoing (Interventions Implemented as Appropriate) Problem: Pain and Hypersensitivity (Lower Extremity Amputation) Goal: Acceptable Pain/Hypersensitivity Control Outcome: Ongoing (Interventions Implemented as Appropriate) Problem: Prosthetic Use and Management (Lower Extremity Amputation) Goal: Effective Prosthesis Use and Management Outcome: Ongoing (Interventions Implemented as Appropriate) Problem: Impaired Wound Healing Goal: Optimal Wound Healing Outcome: Ongoing (Interventions Implemented as Appropriate) * Care Management - Romeo Webber RN - 02/23/2024 2:10 PM EDT OFFICE OF CARE MANAGEMENT PROGRESS NOTE LOS: Hospital Day 5 days Chart reviewed, care reviewed with primary team and at interdisciplinary rounds. Patient continues to meet inpatient level of care related to: L BKA Decision Maker: Self Functional status prior to admission: Assistive Equipment and Assistive Person Home Environment: Others in the home: spouse, sibling(s) (brother's girlfriend). Current Living Arrangements: home/apartment/condo. Accessibility Concerns: 2 NATE, FOS down to main living level. Current Functional Ability: Assistive Person and Equipment DME used at home: wheelchair - manual, grab bar - tub/shower, shower chair DME Needed at Discharge: No Patient is insured through: Primary Insurance: MEDICARE Payor: MEDICARE / Plan: MEDICARE PART A & B / Product Type: *No Product type* / Secondary Insurance: N/A Last Physical Therapy Recommendation: n/a Last Occupational Therapy Recommendation: to be determined pending medical status & functional progression with to be determined Plan for discharge is: Home w/ Services Hemodialysis Needs: Resumption Location: [facility] HD Chair Confirmed: 1 Home Health Services: Registered Nurse, Physical Therapy, City Engineer, Occupational Therapy Agency Referrals: [facility] [address] [place] [address] [facility] [address] [place] [address] P: [phone] F: [phone] Transportation: family or friend will provide Barriers to discharge: Discharge planning Plan going forward: Patient not medically to discharge. Working on pain control. Will follow up after PT/OT eval for discharge disposition recommendations. Care Management will continue to follow and assist with discharge planning and coordination of careas indicated. Anticipated Date of Discharge: 02/29/2024 Romeo Webber RN Case Manager Pgr: [phone] * Consult Note - Thu Holguin [facility] - 02/23/2024 2:00 PM EDT MIGDALIA (Behavioral Intervention Team) MIGDALIA [facility] saw this patient briefly today - his , mother and another person were in his room, and he agreed to speak with this clinician with them present. When asked about how he feels he's coping emotionally with his recent surgery, he said I'm ok. He appeared tired (closing eyes) and had difficulty hearing. Additionally, he had some difficulty tracking the conversation (pointing to the white board and making some statements that were unrelated). This clinician will reach out to his team and also plan to check back in with him this week. Thu Holguin MA, [facility] Mental Chemo Services - BIT (Behavioral Intervention Team) Dept. of Psychiatry - Inpatient Psych. Services BIT Pager: [phone] * Consult Note - Graeme Younger RPH - 02/23/2024 11:01 AM EDT Clinical Pharmacist Note-Vanc Gerson Bruner [id number] Gerson Bruner is a 58 y.o. male is being monitored due to antibiotic therapy which includes intravenous vancomycin. Regimen: Vancomycin intermittent dosing for HD Indication: empiric coverage of non-healing heel wound s/p BKA Initiation Date: 02/22 Day of Therapy: 6 Targeted Goal Range: 15 - 20 mcg/mL Pharmacokinetic information: Wt Readings from Last 1 Encounters: 02/18/24 86.2 kg (190 lb) Ht Readings from Last 1 Encounters: 02/18/24 177.8 cm (5' 10) Labs: Vancomycin: No results found for: VANCOTR Creatinine clearance: Creatinine (mg/dL) Date Value 02/23/2024 7.00 (H) Recommendations: Dosing recommendations: Based on this information a dose of 500 mg to start after dialysis. Monitoring recommendations: Recheck vancomycin serum trough levels shortly before the next hemodialysis session. It is assumed 30% of the drug will be removed during a standard 4 hour HD session. We will continueto monitor the patient as long as he remains on vancomycin therapy. Please watch SCr, BUN and fluidstatus closely. Please page the care area pharmacist with any questions you may have. Alternately, during off-hours you may call [phone] to contact a pharmacist. Graeme Younger RPH Pager [phone] * Plan of Care - Zita Michelle RN - 02/23/2024 5:12 AM EDT OUTCOME EVALUATION NOTE: OUTCOME SUMMARY: Pt is AxOx4, VSS on RA, afebrile. No complaints of SOB, N/V, or chest pain. No BM noted this shift.Voiding minimally via urinal (HD patient) Pt c/o pain this shift, managed with AMBIT pump, tylenol,robaxin, and oxycodone. Q4 BG checks, insulin given when order parameters were met. Pt BG was in the 70s, encouraged drinking juice. Pt needs frequent reminders to push the AMBIT button. L BKA dressing remains CDI. Right heel dressing is CDI. Pt sleeping comfortably between care. Plan of care is ongoing. PLAN MOVING FORWARD: Pain management Discharge planning Encourage ambulation Monitor VS and I&Os Q4 BG checks Dialysis M, W, F INDIVIDUALIZED FALL PREVENTION INTERVENTIONS: Patient-specific fall risk factors per assessment: [current deficits]: Generalized weakness, unfamiliar environment, acute pain, lines/devices, recent surgery, narcotics, L BKA Assistance [level of assistance required for transfers and ambulation]: 2 assist Supervision [direct monitoring required during toileting and ADLs]: Eyes on / Arms reach Surveillance [continuous indirect monitoring]: Call light within reach, room near unit station, purposeful rounding Patient-specific fall prevention interventions for sensory deficits provided, if applicable: Yes CARE PLAN GOAL OUTCOME EVALUATION: Problem: Adult Inpatient Plan [...] Ongoing (Interventions Implemented as Appropriate) Problem: Pain Acute Goal: Acceptable Pain Control and Functional Ability Outcome: Ongoing (Interventions Implemented as Appropriate) Problem: Infection Goal: Absence of Infection Signs and Symptoms Outcome: Ongoing (Interventions Implemented as Appropriate) Problem: Bleeding (Surgery Nonspecified) Goal: Absence of Bleeding Outcome: Ongoing (Interventions Implemented as Appropriate) Problem: Bowel Motility Impaired (Surgery Nonspecified) Goal: Effective Bowel Elimination Outcome: Ongoing (Interventions Implemented as Appropriate) Problem: Infection (Surgery Nonspecified) Goal: Absence of Infection Signs and Symptoms Outcome: Ongoing (Interventions Implemented as Appropriate) Problem: Ongoing Anesthesia Effects (Surgery Nonspecified) Goal: Anesthesia/Sedation Recovery Outcome: Ongoing (Interventions Implemented as Appropriate) Problem: Pain (Surgery Nonspecified) Goal: Acceptable Pain Control Outcome: Ongoing (Interventions Implemented as Appropriate) Problem: Postoperative Nausea and Vomiting (Surgery Nonspecified) Goal: Nausea and Vomiting Relief Outcome: Ongoing (Interventions Implemented as Appropriate) Problem: Postoperative Urinary Retention (Surgery Nonspecified) Goal: Effective Urinary Elimination Outcome: Ongoing (Interventions Implemented as Appropriate) Problem: [...] Impairment (Lower Extremity Amputation) Goal: Optimal Mobility Hood and Safety Outcome: Ongoing (Interventions Implemented as Appropriate) Problem: Pain and Hypersensitivity (Lower Extremity Amputation) Goal: Acceptable Pain/Hypersensitivity Control Outcome: Ongoing (Interventions Implemented as Appropriate) Problem: Prosthetic Use and Management (Lower Extremity Amputation) Goal: Effective Prosthesis Use and Management Outcome: Ongoing (Interventions Implemented as Appropriate) Problem: Impaired Wound Healing Goal: Optimal Wound Healing Outcome: Ongoing (Interventions Implemented as Appropriate) * Plan of Care - Sara Pang RN - 02/22/2024 4:52 PM EDT OUTCOME EVALUATION NOTE: OUTCOME SUMMARY: Pt had an okay day. VSS on RA. A&Ox4, wifty at times. Pt was severely irritable this am. Tryingto get out of bed to walk to the bathroom. RN reminded pt that he was bedrest and had a BKA yesterday but could use a bedpan. Pt refused bedpan and said he would wait for a commode. Bed rest restrictions lifted. Pt 2 assist to commode and was very constipated. Prn suppository and enema given witha very large and hard BM as a result. Pt had another large loose BM later in the day. Insulin givenas ordered. Pt didn't order any food this morning or at lunch. Family at bedside, offering some food. Pt work with therapy. Pt complaining of pain to BKA. AMBIT pump in place. Needs reminders to pushthe button. Prn oxycodone given as well. Will continue to monitor. PLAN MOVING FORWARD: Monitor VS Increase mobility Monitor I&Os Bowel regimen HD tomorrow INDIVIDUALIZED FALL PREVENTION INTERVENTIONS: Patient-specific fall risk factors per assessment: [current deficits]: unknown environment, tethering lines and devices, recent surgery, narcotics, BKA Assistance [level of assistance required for transfers and ambulation]: 2 assist Supervision [direct monitoring required during toileting and ADLs]: hands on Surveillance [continuous indirect monitoring]: call light in reach, room near nurses station, purposeful rounding, bed alarm in use Patient-specific fall prevention interventions for sensory deficits provided, if applicable: [X] N/A CARE PLAN GOAL OUTCOME EVALUATION: Problem: Adult Inpatient Plan [...] Ongoing (Interventions Implemented as Appropriate) Problem: Pain Acute Goal: Acceptable Pain Control and Functional Ability Outcome: Ongoing (Interventions Implemented as Appropriate) Problem: Infection Goal: Absence of Infection Signs and Symptoms Outcome: Ongoing (Interventions Implemented as Appropriate) Problem: Bleeding (Surgery Nonspecified) Goal: Absence of Bleeding Outcome: Ongoing (Interventions Implemented as Appropriate) Problem: Bowel Motility Impaired (Surgery Nonspecified) Goal: Effective Bowel Elimination Outcome: Ongoing (Interventions Implemented as Appropriate) Problem: Infection (Surgery Nonspecified) Goal: Absence of Infection Signs and Symptoms Outcome: Ongoing (Interventions Implemented as Appropriate) Problem: Ongoing Anesthesia Effects (Surgery Nonspecified) Goal: Anesthesia/Sedation Recovery Outcome: Ongoing (Interventions Implemented as Appropriate) Problem: Pain (Surgery Nonspecified) Goal: Acceptable Pain Control Outcome: Ongoing (Interventions Implemented as Appropriate) Problem: Postoperative Nausea and Vomiting (Surgery Nonspecified) Goal: Nausea and Vomiting Relief Outcome: Ongoing (Interventions Implemented as Appropriate) * Initial Assessments - Reggie Lopez, OT - 02/22/2024 2:30 PM EDT Occupational Therapy Evaluation Patient profile: Gerson Bruner is a 58 y.o. male admitted on 02/18/2024 for past medical history significant for end-stage renal disease on HD (last HD 02/18/2024), TIA (2018, thought to be secondary to small vessel disease), and diabetes who presents with bilateral heel ulcers, left worse than right. The patient estimates that these have been here for approximately 1 to 2 months, and he follows with a paper final inspector for these. He presented to [facility] yesterday after noting fevers and after his VNA identified worsening redness of the left foot. The patient denies any increased pain, numbness, or tingling. He states that at baseline he does not ambulate much. Referred to occupational therapy post L BKA for ADL assessment. Past Medical History: Diagnosis Date Anemia Chronic kidney disease CKD (chronic kidney disease) stage 4, GFR 15-29 ml/min Diabetes mellitus Herniation of lumbar intervertebral disc with radiculopathy 08/16/2015 L4-5 left Hypertension Past Surgical History: Procedure Laterality Date PRO AMPUTATION LOW LEG THRU TIB/FIB Left 02/21/2024 @AMPUTATION, BELOW-KNEE (WRVU 15.37) performed by Ari Renae MD at [facility] OR PRO AMPUTATION LOW LEG, CIRCULAR Left 02/18/2024 @AMPUTATION, BELOW-KNEE, OPEN, GUILLOTINE (WRVU 9.79) performed by Ari Renae MD at [facility] OR PRO ANASTOMOSIS, AV, ANY SITE Left 09/05/2018 AV FISTULA CREATION, DIRECT HEMODIALYSIS, ANY SITE, EG GABRIEL FISTULA UPPER EXTREMITY (WRVU 11.9) performed by Scout Reese MD at [facility] OR PRO COLONOSCOPY, REMV LESN, SNARE N/A 09/26/2019 COLONOSCOPY, POLYPECTOMY, REMOVAL LESION BY SNARE (WRVU 4.67) performed by Kaye Gibbs MD at [facility] Social History: Patient lives currently at brothers house which has a full flight of stairs. However, pt and spouse currently building a 1 lvl home and planning to DC there once complete. Pt also has option to stay with mother whom lives in a fully handicap accessible house. Pt is driven to dialysis 3x/wk Home Setup: *new house* 1 level. Unable to gather complete info d/t pt medication status. Spouse reports having OT come to house for home recommendations. DME: Shower chair, WC, grab bars Baseline ADL/Mobility: Pt states that he is w/c bound and has a manual wheelchair. He is able to transfer from bed to W/C and W/C to toilet and car. Pt requires assistance dressing and showering. Precautions/Special Considerations: Heel offloading RLE, NWB LLE, impulsive, Dialysis MWF 8AM Subjective: I'm not sure how much weight he can put on his good leg - pts spouse Objective: Seen today for OT evaluation. Cognitive Status/Behavior: Behavior / Mood: alert, cooperative, and joking around Alert and oriented to: person, place, time, and situation Follows commands: 1 step, 100% of the time, and requires repetition Attention: WFL Safety awareness: WFL, impulsive, and may not be baseline d/t medication Vision & Perception: WNL / WFL Communication: WFL Hard of hearing Range of motion, strength, coordination: Hand dominance: right Bilateral UEs are within functional limitations with slight tremors noted LE limitations: LEFT BKA, R Heel off loading. No apparent strength or ROM difficulties, tremors noted Sensation: impaired to light touch on distal extremities d/t vascular/neuropathy. Activities of Daily Living: Self-feeding: IND Grooming: Min for fine motor assist to manage containers Dressing: Min A LB, IND UB, Min A footwear Bathing: Min A Toileting: Transfer: MAX A Hygiene: Min A Functional Mobility: Supine to sit: SUP Sit to stand: N/T Ambulation: N/T Stand to sit: N/T Sit to supine: SUP Balance: Sitting balance: Good + Standing balance:N/A Vitals: VSS on RA At Rest With Activity SpO2 95% 95% Heart Rate 68 74 Pain: 8/10 shooting/flashes of pain in residual L Limb, 3/10 when not flashing Skin: Wounds on R heel, Risk for skin break down, skin otherwise intact Education: family and patient have been educated on Role of occupational therapy/rehabilitation, Transfers, Assistive device/technique, Adaptive equipment training, ADL, Precautions/Protocol, Functional Mobility, Recommendations, and Discharge planning and verbalize understanding. Patient status, treatment, and mobility recommendations discussed with nursing. Assessment: Pt has been seen for occupational therapy evaluation. Gerson Bruner presents with the following performance skill deficits and client factors: increased pain, decreased sitting / standing balance, sensory deficits, precautions / bracing, compromised mobility status, and skin integrity.These performance deficits have led to activity limitations and participation restrictions in the following areas of occupation: dressing, bathing, grooming, toileting, transfers / mobility, home management, work, driving, and community mobility. Today pt tolerated eval well but was not consistent with responses likely d/t pain medications. Spouse provided information about home living and prior levels of function. Pt moving relatively well but has significant shooting pain in residual limb. OTdiscussed phantom pain and potential transfer options. At this time pt would benefit from further inpatient OT interventions to address performance deficits and maximize participation and independence with occupations of daily living. OT recommending additional acute rehab pending medical status and progression throughout hospitalization. Equipment needs at discharge: to be determined Anticipated Discharge Dispostion: to be determined pending medical status & functional progression Other Recommendations: Utilize upright chair position using bed features or transfer to recliner chair as appropriate withmechanical lift until cleared by therapy for functional txfrs Encourage participation in ADL's by providing set up A on tray table and physical assist only as needed. Sitting EOB to complete hygiene and grooming tasks. Elevate leg and encourage breathing for promoted healing in BLE's Other Recommendations: No other consults recommended at this time. Goals: To be achieved by 03/06/24. - Pt will complete LB dressing with Setup Assist given any adaptive equipment necessary - Pt will complete grooming while seated at sink with Modified Independent given any adaptive equipment necessary - Pt will complete a full toileting routine including txfr with Contact Guard Assist given any adaptive equipment necessary - Pt will report 3/10 pain with functional activity - Pt will demonstrate understanding and following of WB precautions. - Pt will complete functional transfers without breaking WB precautions with any assistive devices necessary. Plan: OT: Therapy Frequency (OT): 2-3 times/wk Planned OT interventions: Role of occupational therapy/rehabilitation, Transfers, Assistive device/technique, Adaptive equipment training, ADL, Breathing exercises, Functional Mobility, Recommendations, Family training, and Discharge planning. Total Minutes, Occupational Therapy: 39 ([id number]) 2017 OT Evaluation Code Rationale: Diagnosis & Pertinent Co-Morbidities affecting Plan of Care: see PMHx Occupational Profile & Client History: Brief Expanded Extensive X Assessment of Occupational Performance: 1-3 performance deficits 3-5 performance deficits X 5 + performance deficits Clinical Decision Making: Low Moderate High X Clinical decision making of moderate complexity using standardized patient assessment instrument and measurable assessment of functional outcome. Pager: [phone] Reggie Lopez OT 02/22/2024 Occupational Therapy Rehabilitation Department * Consult Note - Thu Holguin [facility] - 02/22/2024 10:50 AM EDT BIT (Behavioral Intervention Team) [facility] tried to see patient this morning though was busy with staff and company. Returned this afternoon and he was asleep. Will plan to see him tomorrow. Thu Holguin MA, [facility] Mental Chemo Services - BIT (Behavioral Intervention Team) Dept. of Psychiatry - Inpatient Psych. Services BIT Pager: [phone] * Plan of Care - Elle Finn RN - 02/22/2024 5:32 AM EDT OUTCOME EVALUATION NOTE: OUTCOME SUMMARY: Patient was able to answer orientation questions appropriately. Fidgety. Took hospital gown off. Took O2 tubing off several times overnight with desaturation into the low 80s on RA while sleeping. Otherwise, Sp02 has been in the low 90s on 2L. Patient had increased LLE pain around 0200 with muscle spasms, MD Elaine was notified, a PRN Robaxin was added to patient's pain regimen. Patient was also given PRN Oxycodone 10mg plus a rescue dose of 5mg Oxycodone. Patient was still complaining of LLE pain around 0330 despite above intervention ~MD was notified. Has not urinated this shift, bladder scanned for 135ml around 2030 and 146ml around midnight ~MD aware. LLE BKA stump dressing remains clean dry and intact. Right heel dressing was changed due to small amount of greenish yellowdrainage. Doppler signals present on right pedal pulses. PLAN MOVING FORWARD: Pain management. Keep on bedrest until further order. INDIVIDUALIZED FALL PREVENTION INTERVENTIONS: Patient-specific fall risk factors per assessment: [current deficits]: POD #0, narcotic pain med, unfamiliar environment, left BKA, tethering lines Assistance [level of assistance required for transfers and ambulation]: 2 assist Supervision [direct monitoring required during toileting and ADLs]: hands on Surveillance [continuous indirect monitoring]: bed alarm on, purposeful rounding, call martinez within reach. Patient-specific fall prevention interventions for sensory deficits [...] Ongoing (Interventions Implemented as Appropriate) Problem: Pain Acute Goal: Acceptable Pain Control and Functional Ability Outcome: Ongoing (Interventions Implemented as Appropriate) Problem: Infection Goal: Absence of Infection Signs and Symptoms Outcome: Ongoing (Interventions Implemented as Appropriate) Problem: Bleeding (Surgery Nonspecified) Goal: Absence of Bleeding Outcome: Ongoing (Interventions Implemented as Appropriate) Problem: Bowel Motility Impaired (Surgery Nonspecified) Goal: Effective Bowel Elimination Outcome: Ongoing (Interventions Implemented as Appropriate) Problem: Infection (Surgery Nonspecified) Goal: Absence of Infection Signs and Symptoms Outcome: Ongoing (Interventions Implemented as Appropriate) Problem: Ongoing Anesthesia Effects (Surgery Nonspecified) Goal: Anesthesia/Sedation Recovery Outcome: Ongoing (Interventions Implemented as Appropriate) Problem: Pain (Surgery Nonspecified) Goal: Acceptable Pain Control Outcome: Ongoing (Interventions Implemented as Appropriate) Problem: Postoperative Nausea and Vomiting (Surgery Nonspecified) Goal: Nausea and Vomiting Relief Outcome: Ongoing (Interventions Implemented as Appropriate) Problem: Postoperative Urinary Retention (Surgery Nonspecified) Goal: Effective Urinary Elimination Outcome: Ongoing (Interventions Implemented as Appropriate) Problem: [...] Impairment (Lower Extremity Amputation) Goal: Optimal Mobility Hood and Safety Outcome: Ongoing (Interventions Implemented as Appropriate) Problem: Pain and Hypersensitivity (Lower Extremity Amputation) Goal: Acceptable Pain/Hypersensitivity Control Outcome: Ongoing (Interventions Implemented as Appropriate) Problem: Prosthetic Use and Management (Lower Extremity Amputation) Goal: Effective Prosthesis Use and Management Outcome: Ongoing (Interventions Implemented as Appropriate) Problem: Impaired Wound Healing Goal: Optimal Wound Healing Outcome: Ongoing (Interventions Implemented as Appropriate) * Op Note - Ari Renae MD - 02/21/2024 4:38 PM EDT [facility] Patient Name: Gerson Bruner : [id number] MR#: [id number] Case Date: 02/21/2024 Surgeon: Surgeon(s) and Role: * Ari Renae MD - Primary * Felton Márquez MD - Resident - Assisting * Melissa Courtney MD - Fellow - Assisting Preoperative diagnosis: Left guillotine amputation Postoperative diagnosis: Left guillotine amputation Procedure(s) (LRB): @AMPUTATION, BELOW-KNEE (WRVU 15.37) (Left) Left Below knee amputation Anesthesia: General Estimated Blood Loss: 200 mL Specimens removed during surgery: None Drains: None Surgical Closure: Primary Closure - [...] Gerson Bruner is a 58 y.o. male 3 Days Post-Op left through ankle guillotine amputation of his foot. He presents today for his completion BKA. Procedure Description: The patient was brought to the operating room suite and placed supine on thetable. He had gotten a peripheral nerve catheter previously. He was intubated without any immediatecompletion. The left lower extremity was prepped and draped in a sterile fashion. The amputation incisions weremeasured and marked along the lower leg. We started with a skin incision along the anterior whiting using a #10 scalpel. A longer posterior skin flap was left for end re-approximation. The incision was carried down into the deep subcutaneous tissue with Bovie electrocautery. We further dissected through the various muscles and tendinous structures using electrocautery. Of note, the muscles of all compartments demonstrated twitch with electrocautery stimulation, however noted to have significant fatty and replacement of much of the muscle though it did have good perfusion. The anterior tibial artery was identified, clamped, cut, and suture ligated with 2-0 silk to achieve hemostasis. Bleeding from the associated anterior tibial veins was controlled by oversewing in a bwrjgi-gc-umjfn fashion with 3-0 silk.The tibia was circumferentially freed from surrounding tissues using a periosteal elevator, and a power saw used to transect the bone. The fibula was circumferentially freed from surrounding tissues by use of a periosteal elevator. A bone cutter was used to transect the fibula. Dissection was carried down to posterior skin with an amputation knife. The posterior tibial artery and peroneal artery were then identified, clamped, cut, and suture-ligated with 2-0 silk ties to achieve hemostasis. Bleeding from the associated veins was controlled by oversewing in a crmemk-oc-tbtie fashion with 3-0 silk. Redundant subcutaneous tissue on the posterior flap was removed with the amputationknife. Hemostasis was then achieved by use of xkojrf-wq-cpzaq stitches. We then used interrupted 2-0 Vicry stitches to first approximate the fascial layers around the muscles in order to bring the edge of the longer posterior flap anteriorly. The skin was closed with 3-0 prolene vertical mattress sutures and remi. A sterile dressing was applied. The patient tolerated the procedure well without any immediate complication. He was extubated and taken to the PACU in stable condition. Dr. Renae was present and scrubbed for the entirety of the procedure. Surgical Infection Prevention Bundle Used? No Vascular Surgery Attending Staff Attestation: Case Date: 02/21/2024 I was present and I participated during the entire procedure (does not need to include opening and closing). Ari Renae MD 02/22/2024 * Consult Note - Thu Holguin [facility] - 02/21/2024 12:00 PM EDT BIT (Behavioral Intervention Team) Patient was out of his room at dialysis when this clinician went to see him. Spoke briefly to his . Made plan to see the patient likely tomorrow. Reviewed chart. Thu Holguin MA, [facility] Mental Chemo Services - BIT (Behavioral Intervention Team) Dept. of Psychiatry - Inpatient Psych. Services BIT Pager: [phone] * Consult Note - Renu Gil APRN - 02/21/2024 8:25 AM EDT Diabetes Management Team Inpatient Consult Date of Consultation: 02/21/2024 Consult Requested by: Vascular surgery Reason for Consultation: Gerson Bruner is a 58 y.o. male with PMH significant for T2DM who was admitted on 02/18/2024 currently being treated for Non-healing open wound of the heel. We are being consulted to assist with diabetes management and to provide a review of assisted diabetes care. Diabetes History: Gerson Bruner has had diabetes for over 10 years. Patient kept falling asleep and was redirected multiple times. Reports he takes long acting. Denies taking Victoza. Unknown if he actually uses the correction scale of not. Majority of information obtained by notes Current outpatient diabetes regimen: Diabetes Provider: last saw Dr Welsh in 2019 Medications: Novolog per correction scale 1:30>180, Victoza 1.8 mg daily, Levemir 55 units at bedtime Monitoring is done 0-2 times a day Most recent HA1c was done on 11/05/23 and was 11.6%, suggesting an average glucose of 286 mg/dL. Typical diet is: 3 meals and 1-2 snacks a day Typical exercise regimen is sedentary Trouble with hypoglycemia no Current Weight 86.2 kg Diabetes Complications Status: Eyes: None Kidneys: GFR on 02/21/24 was 7 Cardiovascular : +HTN Current Hospital Diabetes Care: Medications: Glargine 55 units daily Lispro resistant correction scale q 4 hrs Monitoring: q 4 hrs Diet: NPO ROS: deferred PMH Past Medical History: Diagnosis Date Anemia Chronic kidney disease CKD (chronic kidney disease) stage 4, GFR 15-29 ml/min Diabetes mellitus Herniation of lumbar intervertebral disc with radiculopathy 08/16/2015 L4-5 left Hypertension Current Hospital Medications: heparin (porcine) 4,000 Units Intravenous Once in dialysis insulin glargine (Lantus;Semglee) (100 unit/mL) subcutaneous injection 20 Units Subcutaneous Daily piperacillin-tazobactam 3.375 g Intravenous Q12H vitamin B Complex-vitamin C-folic Acid 1 tablet Oral Daily cholecalciferol 1,000 Units Oral Daily calcium carbonate 500 mg Oral TID WC amLODIPine 10 mg Oral Daily aspirin 81 mg Oral Daily atorvastatin 40 mg Oral QPM carvediloL 12.5 mg Oral BID WC pregabalin 100 mg Oral BID insulin lispro 2-12 Units Subcutaneous Q4H PAULIE sodium chloride 0.9 % (flush) 5 mL Intravenous BID heparin (porcine) 5,000 Units Subcutaneous Q8H PAULIE acetaminophen 650 mg Oral Q6H PAULIE sevelamer carbonate 1,600 mg Oral TID WC dilTIAZem CD 120 mg Oral Daily PRN: sodium chloride 0.9%, epoetin ken-epbx, glucose 40% oral geL OR dextrose OR glucagon, sodium chloride 0.9 % (flush), lidocaine, oxyCODONE OR oxyCODONE, oxyCODONE, vancomycin- intermittent dosing per levels Allergy: Allergies Allergen Reactions Clindamycin Swelling. Gabapentin swelling Pregabalin Other reaction(s): Unsure Zoloft [Sertraline] Other reaction(s): Unsure Social history: Social History Tobacco Use Smoking status: Light Smoker Packs/day: .25 Types: Cigarettes Last attempt to quit: 12/26/2018 Years since quittin.1 Smokeless tobacco: Never Tobacco comments: smoking a few a day Vaping Use Vaping Use: Never used Substance Use Topics Alcohol use: No Drug use: Yes Types: Marijuana Comment: multiple times daily Family history: Family History Problem Relation Age of Onset Diabetes Mother Cancer Father Diabetes Paternal Grandmother Heart Disease Paternal Grandfather Vitals Last value Range last 24 hrs Temperature Temp: 36.7 ??C (98.1 ??F) Temp: [36.4 ??C (97.5 ??F)-36.9 ??C (98.4 ??F)] Heart Rate Heart Rate: 61 Heart Rate: [61-69] Blood Pressure BP: 119/66 BP: (119-140)/(66-93) Respiratory Rate Resp: 18 Resp: [16-20] SpO2 SpO2: 92 % SpO2: [91 %-97 %] Physical Exam: deferred Labs: Lab Results Component Value Date BUN 46 (H) 02/21/2024 CREATININE 8.39 (H) 02/21/2024 GLUCOSE 96 02/21/2024 GLUCFASTING 331 (H) 03/07/2019 ESTGFR 7 (L) 02/21/2024 Lab Results Component Value Date HA1C 12.4 (H) 05/04/2019 Lab Results Component Value Date MICROALBUR 577.9 06/13/2015 Lab Results Component Value Date CHLPL 269 03/07/2019 Lab Results Component Value Date HDL 46 03/07/2019 No results found for: LDLCHOL Lab Results Component Value Date TRIG 323 03/07/2019 Lab Results Component Value Date CHOLHDL 5.8 03/07/2019 Assessment: Patient is a 58 y.o. years old male with PMH significant for DM (Last A1C of 11.6%) who was admitted on 02/18/2024 for Non-healing wound of heel. Diabetes uncontrolled and currently complicated by unknown insulin requirement. Currently with variability of blood glucose levels while hospitalized requiring adjustment of insulin regimen and DM medications. TPN/TF:none Weight based considerations: Calculated TDD would be: 60.34 Glargine dosin Carb ratio: 8.3 Correction Scale:25 Yesterday patient used 79 units. Using 50/50 split between basal bolus, recommend 40 units of glargine (Due to NPO status, recommend 20 units). Using rule of 500 and 1500 respectively, gives a carb ratio of 6.3 and a Correction scale of 19. Home dose is 55 units. This calculates to 22 units of glargine and Lispro CR 9 and CF 27 Plan: (Primary team to enter in orders) 1. Lantus 40 units qd if eating, 20 units if NPO 2. Lispro moderate correction scale for BG>140 extended 3. Lispro 1unit: 6 gm carb ratio for each meal Diabetes Discharge Planning Medications - Outpatient treatment regimen recommendations pending based on the hospital course. Monitoring - continue BG 4 times daily, ac & hs Diet - low fat/low carb diet Exercise - weight-bearing exercise 30 min/day, as tolerated Thank you for allowing us to provide care for your patient Renu Gil APRN [facility] [place] Diabetes Management Pager [phone] minutes of this 80 minute visit was spent with the patient in counseling on diabetes and treatment plan, reviewing all glucose and insulin data as well as relevant laboratory results with the patient, and coordination of care on the inpatient unit * Plan of Care - Allie Tong RN - 02/21/2024 2:02 AM EDT OUTCOME EVALUATION NOTE: OUTCOME SUMMARY: Xander was A&Ox4 with VSS. However, he demonstrates impulsive behavior and requires frequent redirection to maintain bedrest and not try to sit/stand up. He self- removed his right PIV at approximately 1930 last night, and a new IV was inserted by vascular access. He was able to maintain oxygen saturation percentage above 90 on room air, no supplemental oxygen, starting at approximately 2100 this evening, so nasal cannula discontinued. Treated with PRN oxycodone for reports of neck and feet pain. Dressing to LLE CDI, changed at bedside in AM by . Bedrest maintained. Prevalon boot to RLE. Resting between care. PLAN MOVING FORWARD: Dialysis M-W- Revision of LLE amputation, scheduled for this afternoon. Pain Management Bedrest Discharge Planning INDIVIDUALIZED FALL PREVENTION INTERVENTIONS: Patient-specific fall risk factors per assessment: [current deficits]: Recent surgery, narcotics for pain management, tethering lines and drains, generalized weakness, unfamiliar environment. Assistance [level of assistance required for transfers and ambulation]: Bedrest Supervision [direct monitoring required during toileting and ADLs]: hands on. Surveillance [continuous indirect monitoring]: Environmental monitoring, purposeful rounding, ringscall martinez appropriately Patient-specific fall prevention interventions for sensory deficits provided, if applicable: Lighting adjusted, belongings within reach. CARE PLAN GOAL OUTCOME EVALUATION: Problem: Adult Inpatient Plan [...] Ongoing (Interventions Implemented as Appropriate) Problem: Pain Acute Goal: Acceptable Pain Control and Functional Ability Outcome: Ongoing (Interventions Implemented as Appropriate) Problem: Infection Goal: Absence of Infection Signs and Symptoms Outcome: Ongoing (Interventions Implemented as Appropriate) Problem: Bleeding (Surgery Nonspecified) Goal: Absence of Bleeding Outcome: Ongoing (Interventions Implemented as Appropriate) Problem: Bowel Motility Impaired (Surgery Nonspecified) Goal: Effective Bowel Elimination Outcome: Ongoing (Interventions Implemented as Appropriate) Problem: Infection (Surgery Nonspecified) Goal: Absence of Infection Signs and Symptoms Outcome: Ongoing (Interventions Implemented as Appropriate) Problem: Ongoing Anesthesia Effects (Surgery Nonspecified) Goal: Anesthesia/Sedation Recovery Outcome: Ongoing (Interventions Implemented as Appropriate) Problem: Pain (Surgery Nonspecified) Goal: Acceptable Pain Control Outcome: Ongoing (Interventions Implemented as Appropriate) Problem: Postoperative Nausea and Vomiting (Surgery Nonspecified) Goal: Nausea and Vomiting Relief Outcome: Ongoing (Interventions Implemented as Appropriate) Problem: Postoperative Urinary Retention (Surgery Nonspecified) Goal: Effective Urinary Elimination Outcome: Ongoing (Interventions Implemented as Appropriate) Problem: Fall Injury Risk Goal: Absence of Fall and Fall-Related Injury Outcome: Ongoing (Interventions Implemented as Appropriate) * Plan of Ponce - Ruby Dolan RN - 02/20/2024 6:37 PM EDT OUTCOME EVALUATION NOTE: OUTCOME SUMMARY: Xander was A&Ox4 with VSS on 1.5L O2 via NC throughout shift. Blood glucose levels elevated in PM,treated per DEC. Patient reporting 5-9/10 for pain, mostly in RLE. Treated with PRN oxycodone x3. Patient continues to report neck muscle pain, heat pack supplied. Dressing to LLE CDI, changed at bedside in AM by MD. Patient reported one occurrence of urine output that was unmeasured, bladder scansshow <60ml, MD aware. Patient at times required encouragement for cooperation with care. Family at bedside for most of shift. Bedrest maintained. Resting between care. PLAN MOVING FORWARD: Dialysis Pain Management Bedrest Discharge Planning INDIVIDUALIZED FALL PREVENTION INTERVENTIONS: Patient-specific fall risk factors per assessment: [current deficits]: Recent surgery, narcotics for pain management, tethering lines and drains, generalized weakness, unfamiliar environment. Assistance [level of assistance required for transfers and ambulation]: Bedrest Supervision [direct monitoring required during toileting and ADLs]: hands on. Surveillance [continuous indirect monitoring]: Environmental monitoring, purposeful rounding, ringscall martinez appropriately Patient-specific fall prevention interventions for sensory deficits provided, if applicable: Non-skid slippers on, lighting adjusted, belongings within reach. CPG GOAL OUTCOME EVALUATION: Problem: Adult Inpatient [...] Ongoing (Interventions Implemented as Appropriate) Problem: Pain Acute Goal: Acceptable Pain Control and Functional Ability Outcome: Ongoing (Interventions Implemented as Appropriate) Problem: Infection Goal: Absence of Infection Signs and Symptoms Outcome: Ongoing (Interventions Implemented as Appropriate) Problem: Bleeding (Surgery Nonspecified) Goal: Absence of Bleeding Outcome: Ongoing (Interventions Implemented as Appropriate) Problem: Bowel Motility Impaired (Surgery Nonspecified) Goal: Effective Bowel Elimination Outcome: Ongoing (Interventions Implemented as Appropriate) Problem: Infection (Surgery Nonspecified) Goal: Absence of Infection Signs and Symptoms Outcome: Ongoing (Interventions Implemented as Appropriate) Problem: Ongoing Anesthesia Effects (Surgery Nonspecified) Goal: Anesthesia/Sedation Recovery Outcome: Ongoing (Interventions Implemented as Appropriate) Problem: Pain (Surgery Nonspecified) Goal: Acceptable Pain Control Outcome: Ongoing (Interventions Implemented as Appropriate) Problem: Postoperative Nausea and Vomiting (Surgery Nonspecified) Goal: Nausea and Vomiting Relief Outcome: Ongoing (Interventions Implemented as Appropriate) Problem: Postoperative Urinary Retention (Surgery Nonspecified) Goal: Effective Urinary Elimination Outcome: Ongoing (Interventions Implemented as Appropriate) Problem: Fall Injury Risk Goal: Absence of Fall and Fall-Related Injury Outcome: Ongoing (Interventions Implemented as Appropriate) * Initial Assessments - Suzy Manrique RN - 02/20/2024 10:47 AM EDT Office of Care Management Initial Assessment Suzy Manrique RN reviewed record and discussed patient with Care Team. Source of Information: Team, bedside nurse, medical record, and Patient Introduced self/reviewed role; services accepted. Admitted From: Home Reason for Hospitalization: Bilateral heel wounds, now with L BKA. Per H&P by Marti Garcia MD: Gerson Sykes is a 58-year-old male with past medical history significant for end-stage renal disease on HD (last HD 02/18/2024), TIA (2018, thought to be secondary to small vessel disease), and diabetes who presents with bilateral heel ulcers, left worse than right. The patient estimates that thesehave been here for approximately 1 to 2 months, and he follows with a paper final inspector for these. He presented to [facility] yesterday after noting fevers and after his VNA identified worsening redness of the left foot. The patient denies any increased pain, numbness, or tingling. He states that at baseline hedoes not ambulate much. The patient has not had any vascular interventions in the past, although he has been evaluated by avascular surgeon at [facility] who determined that he does not have any indication for revascularization based on his toe pressures. The patient takes Eliquis at baseline for A-fib, however he ran out approximately 1 week ago and has not taken it during that time. Covid Vaccination Status: Unvaccinated (Had COVID so decided not to get vaccines) Last COVID test: Past medical History: Past Medical History: Diagnosis Date Anemia Chronic kidney disease CKD (chronic kidney disease) stage 4, GFR 15-29 ml/min Diabetes mellitus Herniation of lumbar intervertebral disc with radiculopathy 08/16/2015 L4-5 left Hypertension Hospitalizations Within the Past 30 Days: no previous admission in last 30 days Current Decision-Making Capacity: Self If AD's have not been completed the following surrogate would be surrogate decision maker per [place] decision making law. (Only good for 180 days) Any patient receiving care in [place] must abide by [place] law. The hierarchy for surrogate decision making is: (a) Patient???s spouse or civil union partner unless there is a divorce proceeding, separation agreement, or restraining order limiting that person???s relationship with the patient. (b) Any adult son or daughter of the patient. (c) Either parent of the patient. (d) Any adult brother or sister of the patient. (e) Any adult grandchild of the patient. (f) Any grandparent of the patient. (g) Any adult aunt, uncle, niece, or nephew of the patient. (h) A close friend of the patient. (i) The agent with financial power of claims attorney or a conservator appointed in accordance with RSA 464-A. (j) The guardian of the patient???s estate. Advance Care Planning: Attempt Cardiopulmonary Resuscitation - Inpatient Received -Advanced Directive: Yes, on file Who is your DPOA-HC?: Spouse Current Coping/Education/Information Needs: Current Functional Ability: Assistive Equipment and Assistive Person Functional Status Prior to Admission: Assistive Equipment and Assistive Person Prior ADLs & IADLs: Assistance Needed with ADLs & IADLs Cleaning: Family / Friends do Cleaning Laundry: Has Assistance Driving: Family / Friends Provide Rides Groceries: Family / Friends Provide Groceries Bathing: Assists with Bathing Dressing: Assists with Dressing Home Environment: Others in the home: spouse, sibling(s) (brother's girlfriend). Current Living Arrangements: home/apartment/condo. Accessibility Concerns:2 NATE, FOS down to main living level. In the last 12 months, was there a time when you were not able to pay the mortgage or rent on time?: No In the last 12 months, how many places have you lived?: 1 In the last 12 months, was there a time when you did not have a steady place to sleep or slept in ashelter (including now)?: No Resource / Environmental Concerns: Resource/Environmental Concerns: none Home Accessibility Concerns: stairs to enter home In the past 12 months, has lack of transportation kept you from medical appointments or from getting medications?: No In the past 12 months, has lack of transportation kept you from meetings, work, or from getting things needed for daily living?: No Current DME: wheelchair - manual, grab bar - tub/shower, shower chair Home Address confirmed as: [address] [address] Social & Family Supports: All names listed below confirmed with patient as current and correct Extended Emergency Contact Information Primary Emergency Contact: PaxtonMelissa coburn Address: [address] [place] [address] [address] [place] [address] [facility] [place] Relation: Spouse Current Care Provided by: spouse/significant other, self, homecare agency Provides Primary Care For: no one, unable/limited ability to care for self Caregiver if needed: spouse Quality of Family relationships: supportive Community Resources being provided currently: none Behavioral Health History: no issues in chart Substance Use/Abuse listed: Social History Tobacco Use Smoking Status Light Smoker Packs/day: .25 Types: Cigarettes Last attempt to quit: 12/26/2018 Years since quittin.1 Smokeless Tobacco Never Tobacco Comments smoking a few a day In the past year have you used an illegal drug or used a prescription medication for non-medical reasons?: No 0 No problems reported 1-2 Low level 3-5 Moderate level 6-8 Substantial level 9- 10 Severe level In the past year have you had 5 or more drinks a day containing alcohol?: No 0 to 7 points: Low risk 8 to 15 points: Medium risk 16 to 19 points: High risk 20 to 40 points: Addiction likely Health/Prescription Coverage: Primary Insurance: MEDICARE Payor: MEDICARE / Plan: MEDICARE PART A & B / Product Type: *No Product type* / Secondary Insurance: N/A ONLY if patient has Medicare A&B - Does this patient have secondary insurance?: No ; Why not?: Unclear - sounds like they had it before but decided they didn't need it? Prescription Coverage: Yes Preferred Pharmacy: [id number] - [place], [place] - [address] [facility] [address] Hours: Not open 24 hours Status: Patient is a : No Primary Care Provider listed: Ken Greer MD [phone] Greer is leaving practice soon and they will be looking for another provider Patient/Caregiver Goals of Treatment: To go home Potential Needs for Transition of Care: home health care Agency Referrals: Resumption of Care [facility] [address] [place] [address] [facility] [address] [place] [address] P: [phone] F: [phone] Transportation: no concerns Transportation Anticipated: family or friend will provide Concerns to be Addressed: discharge planning Assessment: Patient is admitted to Vascular Surgery service for non-healing open wound of heel Pt lives w/spouse Melissa in his brother's home. There is a 2 NATE and then a FOS to their living area. Brother's girlfriend also lives there and they have a cat. Pt states that he is w/c bound and has a manual wheelchair. He is able to transfer from bed to W/C and W/C to toilet and car. Pt requires assistance dressing and showering. He is alert and oriented x4. W/C has bilateral leg rests Spouse Melissa is his primary caregiver and has been unable to work for the last 2 months d/t Pt's needs. She has looked into [facility] but stopped b/c of the paperwork. This [facility] office can help. Will also look into SW/LT and see if they can help Pt goes to [facility] for dialysis Plan: Pending VNA order for RN/PT/OT and SW A member of the Care Management team will continue to monitor progress, follow for continuity of care and assist with transition of care planning. Suzy Manrique RN Care Management [phone] - [id number] * Plan of Care - Allie Tong RN - 02/20/2024 12:51 AM EDT OUTCOME EVALUATION NOTE: OUTCOME SUMMARY: Alert and oriented x4, cooperative with care. His oxygen sensor was moved to the right foot, to minimize irritation and subsequent patient removal of the sensor. He self-removed his nasal cannula multiple times, resulting in decrease in oxygen saturation. He allowed this RN to replace the nasal cannula each time, with encouragement. LLE dressing remains intact. No BM this shift. Small amount of urine output, within expected range of someone on hemodialysis. He complained of shoulder and neck muscle pain. No evidence of nuchal rigidity. Massage and heat pack supplied with improvement. PLAN MOVING FORWARD: Dialysis. Pain management. Monitor vital signs. Wean from oxygen as able. Progress mobility as able. Discharge planning. INDIVIDUALIZED FALL PREVENTION INTERVENTIONS: Patient-specific fall risk factors per assessment: [current deficits]: Recent surgery with new amputation. Unfamiliar environment. Assistance [level of assistance required for transfers and ambulation]: Bedrest level of care at this time. Supervision [direct monitoring required during toileting and ADLs]: Hands-on. Surveillance [continuous indirect monitoring]: Masimo, frequent purposeful rounding. Patient-specific fall prevention interventions for sensory deficits provided, if applicable: [X] Yes Room near nursing station. Side rails up x3. Bed in lowest position. Personal care items and nurse call martinez in reach at all times. CARE PLAN GOAL OUTCOME EVALUATION: Problem: Adult Inpatient Plan [...] Ongoing (Interventions Implemented as Appropriate) Problem: Pain Acute Goal: Acceptable Pain Control and Functional Ability Outcome: Ongoing (Interventions Implemented as Appropriate) Problem: Infection Goal: Absence of Infection Signs and Symptoms Outcome: Ongoing (Interventions Implemented as Appropriate) Problem: Bleeding (Surgery Nonspecified) Goal: Absence of Bleeding Outcome: Ongoing (Interventions Implemented as Appropriate) Problem: Bowel Motility Impaired (Surgery Nonspecified) Goal: Effective Bowel Elimination Outcome: Ongoing (Interventions Implemented as Appropriate) Problem: Infection (Surgery Nonspecified) Goal: Absence of Infection Signs and Symptoms Outcome: Ongoing (Interventions Implemented as Appropriate) Problem: Ongoing Anesthesia Effects (Surgery Nonspecified) Goal: Anesthesia/Sedation Recovery Outcome: Ongoing (Interventions Implemented as Appropriate) Problem: Pain (Surgery Nonspecified) Goal: Acceptable Pain Control Outcome: Ongoing (Interventions Implemented as Appropriate) Problem: Postoperative Nausea and Vomiting (Surgery Nonspecified) Goal: Nausea and Vomiting Relief Outcome: Ongoing (Interventions Implemented as Appropriate) Problem: Postoperative Urinary Retention (Surgery Nonspecified) Goal: Effective Urinary Elimination Outcome: Ongoing (Interventions Implemented as Appropriate) Problem: Fall Injury Risk Goal: Absence of Fall and Fall-Related Injury Outcome: Ongoing (Interventions Implemented as Appropriate) * Plan of Care - Ruby Dolan RN - 02/19/2024 6:47 PM EDT OUTCOME EVALUATION NOTE: OUTCOME SUMMARY: Xander was A&Ox4 with VSS on 1.5-2.5L O2 via NC throughout shift. One slightly elevated temperature noted in PM. Diaphoretic intermittently while asleep. During first half of shift pt was asymptomatically hypoglycemic. By afternoon, blood glucose levels were elevated, long-acting insulin adjusted per MD order. Dressing changed at bedside by MD in AM. Dressing on LLE with minimal amount of dry drainage noted. Lung sounds with inspiratory wheezes. No urine output today. Bladder scan showed less than 177ml. MD notified, no new orders at this time. PRN oxy given x1 today. Patient remains impulsive at times, and requires encouragement for cooperation with care. Spouse attentive and at bedside th roughout shift. Bedrest maintained. Resting between care. PLAN MOVING FORWARD: Dialysis Wean Oxygen as Able Bedrest Discharge Planning INDIVIDUALIZED FALL PREVENTION INTERVENTIONS: Patient-specific fall risk factors per assessment: [current deficits]: Recent surgery, narcotics for pain management, tethering lines and drains, generalized weakness, unfamiliar environment. Assistance [level of assistance required for transfers and ambulation]: Bedrest Supervision [direct monitoring required during toileting and ADLs]: hands on. Surveillance [continuous indirect monitoring]: Environmental monitoring, purposeful rounding, ringscall martinez appropriately Patient-specific fall prevention interventions for sensory deficits provided, if applicable: Non-skid slippers on, lighting adjusted, belongings within reach. CPG GOAL OUTCOME EVALUATION: Problem: Adult Inpatient [...] Ongoing (Interventions Implemented as Appropriate) Problem: Pain Acute Goal: Acceptable Pain Control and Functional Ability Outcome: Ongoing (Interventions Implemented as Appropriate) Problem: Infection Goal: Absence of Infection Signs and Symptoms Outcome: Ongoing (Interventions Implemented as Appropriate) Problem: Bleeding (Surgery Nonspecified) Goal: Absence of Bleeding Outcome: Ongoing (Interventions Implemented as Appropriate) Problem: Bowel Motility Impaired (Surgery Nonspecified) Goal: Effective Bowel Elimination Outcome: Ongoing (Interventions Implemented as Appropriate) Problem: Infection (Surgery Nonspecified) Goal: Absence of Infection Signs and Symptoms Outcome: Ongoing (Interventions Implemented as Appropriate) Problem: Ongoing Anesthesia Effects (Surgery Nonspecified) Goal: Anesthesia/Sedation Recovery Outcome: Ongoing (Interventions Implemented as Appropriate) Problem: Pain (Surgery Nonspecified) Goal: Acceptable Pain Control Outcome: Ongoing (Interventions Implemented as Appropriate) Problem: Postoperative Nausea and Vomiting (Surgery Nonspecified) Goal: Nausea and Vomiting Relief Outcome: Ongoing (Interventions Implemented as Appropriate) Problem: Postoperative Urinary Retention (Surgery Nonspecified) Goal: Effective Urinary Elimination Outcome: Ongoing (Interventions Implemented as Appropriate) Problem: Fall Injury Risk Goal: Absence of Fall and Fall-Related Injury Outcome: Ongoing (Interventions Implemented as Appropriate) * Consult Note - Radha Biswas MD - 02/19/2024 6:08 AM EDT Images from the original note were not included. [facility] NEPHROLOGY/HYPERTENSION DIALYSIS CONSULT NOTE PATIENT: Gerson Bruner : 1965 Ken Greer MD REASON FOR CONSULTATION: ESRD Management HPI: 58-year-old male with past medical history significant for end-stage renal disease on HD (last HD 02/18/2024), TIA (2018, thought to be secondary to small vessel disease), and diabetes who presents with bilateral heel ulcers, left worse than right. Patient has been admitted under vascular surgery and underwent left guillotine ankle amputation. Was also placed on zosyn for antibiotic coverage. Nephrology consulted for HD management. Patient overnight since surgery has been stable. He has been slightly delirious and has had elevated blood sugars requiring insulin. Has been attempting to remove medical leyva attached. From a dialysis perspective, there are several things to note: ESRD [place] [facility] Disease: Diabetic nephropathy per patient Dialysis Center and Schedule: Dialyzes in [facility]. Dialyzes MWF. Last HD on Saturday 02/17. Has been a dialysis patient for 3 years. Previously used to dialyze in [facility] Customer Relations Assistant: Patient unsure who primary control valve mechanic is Access: ROSIBELE AVF placed about 3 years ago. Patient has no issues with AVF. Dialysis Prescription: EDW = 85; F200; BFR = 400cc/min; DFR = 800; 4 hours; Heparin 4500 bolus followed by 1500U per hour. Medications: - Tylenol PRN; Amlodipine 10mg; Apixaban 5mg BID; Lipitor 40; TUMS one tablet with meals; Coreg 12.5mg BID; Vit D 1000UT; Diltiazem 120 daily; Cymbalta 20mg BID; Pepcid daily; Flovent inhaler; Insulins; oxycodone 5mg PRN; Miralax PRN; Pregabalin 100mg BID; Sevelamer 1600mg with meals ROS: 4 point review of sytem was done, everything was negative except for what was mentioned above. INTAKE/OUTPUTS: Intake/Output Summary (Last 24 hours) at 02/19/2024 0608 Last data filed at 02/19/2024 0400 Gross per 24 hour Intake 1225 ml Output 100 ml Net 1125 ml MEDICATIONS: amLODIPine 10 mg Oral Daily aspirin 81 mg Oral Daily atorvastatin 40 mg Oral QPM carvediloL 12.5 mg Oral BID WC furosemide 40 mg Oral BID hydrALAZINE 25 mg Oral TID nortriptyline 25 mg Oral Nightly pregabalin 100 mg Oral BID piperacillin-tazobactam 3.375 g Intravenous Q8H insulin lispro 2-12 Units Subcutaneous Q4H PAULIE insulin glargine (Lantus;Semglee) (100 unit/mL) subcutaneous injection 55 Units Subcutaneous Daily sodium chloride 0.9 % (flush) 5 mL Intravenous BID heparin (porcine) 5,000 Units Subcutaneous Q8H PAULIE acetaminophen 650 mg Oral Q6H PAULIE sevelamer carbonate 1,600 mg Oral TID WC dilTIAZem CD 120 mg Oral Daily Vasoactive/Sedating Meds: VITALS: Last value Range last 24 hrs Temperature Temp: 36.6 ??C (97.9 ??F) Temp: [36.3 ??C (97.3 ??F)-37.5 ??C (99.5 ??F)] Heart Rate Heart Rate: 68 Heart Rate: [68-77] Blood Pressure BP: 140/57 BP: (133-182)/(56-74) Respiratory Rate Resp: 18 Resp: [16-26] SpO2 SpO2: 100 % SpO2: [85 %-100 %] Ventilator: Mode Rate TV PEEP FiO2 Pplateau PHYSICAL EXAM: Patient is awake alert not [...] motor examination is grossly normal. slight asterixis. STUDIES: LABS: CBC: Recent Labs 02/19/24 0528 02/18/24 1415 WBC 12.9* 13.8* HGB 8.0* 7.2* PLATELET 371* 440* Chemistry: Recent Labs 02/18/24 1415 NA 135 K 3.7 CL 97* CO2 27 BUN 18 CREATININE 3.48* GLUCOSE 211* Recent Labs 02/18/24 1415 CALCIUM 8.6 ABG (Arterial Blood Gas) Recent Labs 02/18/24 1516 LACTATEVEN 1.0 VBG (Venous Blood Gas) Recent Labs 02/18/24 1516 PHVEN 7.39 DTE0IQS 48 PO2VEN 22* HVC6BAT 28.3 LACTATEVEN 1.0 Mixed Venous Sat No results for input(s): I5TGCZ6 in the last 168 hours. LFT's: No results for input(s): BILITOT, BILIDIR, ALBUMIN, ALKPHOS, ALT, AST in the last 7068 hours. Prot/Cre Ratio Date Value Ref Range Status 02/06/2019 6.6 ratio Final Lab Results Component Value Date TPROTEINPEP 6.4 04/07/2018 ALBELECT 3.83 04/07/2018 Lab Results Component Value Date MICROALBUR 577.9 06/13/2015 Lab Results Component Value Date HA1C 12.4 (H) 05/04/2019 HA1C 11.2 (H) 03/07/2019 HA1C 10.7 (H) 08/10/2018 Lab Results Component Value Date PTH 45 02/06/2019 CALCIUM 8.6 02/18/2024 PHOS 4.8 (H) 05/04/2019 25-OH Vit D Total (ng/mL) Date Value Status 05/04/2019 29 (L) Final MICROBIOLOGY: N/A IMAGING: N/A ASSESSMENT/IMPRESSIONS + PLAN: 1) ESRD on HD - Impressions: No significant indications for HD. Patient dialyzed yesterday according to his MWF schedule. - Access: LUE AVF - Schedule: MWF; Next dialysis: 02/20 - Prescription for Next Dialysis: Duration:4; Na:140; Bicarb:35; Temp:35; Dialyzer:F200; BFR:400cc/min; DFR:2xBFR; UF:1-3kg; BVM: Profile: B - Anticoagulation: Will touch base with surgery on OK to use systemic heparin. - Additional Recs: - Protect LUE from venopuncture or BP measurements. - Would obtain blood cultures - Please order Hep B surface antigen and antibody 2) Hemodynamics - Impressions: Stable - Pressures: BP between 140 - 150 systolics - Recommendations / Therapies: - Continue Amlodipine 10mg daily - Continue Coreg 12.5mg BID - Continue Diltiazem 120mg daily 3) Anemia / Hemoglobin - Impressions: Hgb = 8.0; - Recommendations / Therapy: - Will defer Anemia management to outpatient dialysis for now - Please prescribe nephrocaps daily - Will administer EPO 10,000U during HD 4) Bone Mineral Health - Impressions: Defer BMD labs to outpatient unit - Recommendations / Therapy: - Continue Renvela 1600mg TID - Would continue Vit D 1000UT daily - Would continue home low-dose TUMS daily with meals 5) Electrolytes - Impressions: Stable - Recommendations / Therapy: - Management with HD Thanks for letting us participate in the care of this patient. 02/19/2024 Radha Biswas M.D., M.P.H., M.H.A., M.A. PGY-V Nephrology-Hypertension Fellow Page # [phone] 2nd floor, [employer] [address] [place] [address] Associated attestation - Fareed Bryant MD - 02/19/2024 4:36 PM EDT I saw and discussed the patient with the fellow and agree with the assessment plan in his note. 58-year-old male history of ESRD last dialyzed on February 17 presents for lower extremity amputation. No acute indication for renal replacement therapy today anticipate treatment per routine February 20. * Plan of Care - Allie Tong RN - 02/19/2024 3:14 AM EDT OUTCOME EVALUATION NOTE: OUTCOME SUMMARY: Gerson is a 58 year old male admitted after presenting to the emergency department at an OSH. He eventually presented to the ED here at [facility], with bilateral heel ulcers and gangrene to the left foot. 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 PMH significant for Type II DM, TIA, HLD, CKD, lumbar disk rupture, proteinuria, anemia, leg cramps, smoker, hearing loss, LE arterial occlusive disease, and primary wheelchair level of mobility. He arrived from PACU to [facility] approximately 2100 on 02/17, s/p LLE BKA. He was alert and oriented although somewhat impulsive. He was accompanied by family, who stayed until late evening to help him settle in. He reported pain as 0/10 while awake but when asleep was vocalizing and expressing pain. Pt awoken and was medicated with good results. Blood sugar levels significantly elevated at 278 and 252; insulin given with follow up Q2H checks per protocol. Inspiratory, expiratory wheezing and base crackles noted on lung auscultation; patient and family report this is baseline for him. The patient's chart indicates allergy to pregabalin, which is ordered through the DEC. Pharmacy paged, and the pharmacist reports the patient has been using pregabalin at home at least since August2023, and it is OK to administer. Pharmacy also messaged that a warning for glucagon/nortriptyline concurrent use flagged. Pt regularly goes to dialysis M-W-F near his home in [place]. Fistula present in the LUE, he reports this was placed about 3 years ago. Pt removed Masimo and Nasal Cannula multiple times overnight, required encouragement and frequent checks to keep in place. At approximately 0600 he completely removed the dressing from his LLE amputation. Dressing temporarily replaced with gauze and MD isabela paged and arrived quickly. PLAN MOVING FORWARD: Dialysis. Monitor vital signs. Wean from oxygen as able. Progress mobility as able. Discharge planning. INDIVIDUALIZED FALL PREVENTION INTERVENTIONS: Patient-specific fall risk factors per assessment: [current deficits]: Recent surgery with new amputation. Unfamiliar environment. Assistance [level of assistance required for transfers and ambulation]: Bedrest level of care at this time. Supervision [direct monitoring required during toileting and ADLs]: Hands-on. Surveillance [continuous indirect monitoring]: Masimo, frequent purposeful rounding. Patient-specific fall prevention interventions for sensory deficits provided, if applicable: [X] Yes Room near nursing station. Side rails up x3. Bed in lowest position. Personal care items and nurse call martinez in reach at all times. CARE PLAN GOAL OUTCOME EVALUATION: Problem: Adult Inpatient Plan of Care Goal: Absence of Hospital-Acquired Illness or Injury Outcome: Ongoing (Interventions Implemented as Appropriate) Goal: Optimal Comfort and Wellbeing Outcome: Ongoing (Interventions Implemented as Appropriate) Goal: Readiness for Transition of Care Outcome: Ongoing (Interventions Implemented as Appropriate) * Consult Note - Dany Gambino MD - 02/18/2024 9:22 PM EDT Images from the original note were not included. Orthopaedic Surgery Consult Note Attending: Dr. Martinez We are seeing Gerson Bruner at the request of Ari Renae MD. Chief Complaint: Bilateral calcaneal wounds History of Present Illness: Gerson Bruner is a 58 y.o. male with CKD on M/W/F HD, HTN, tobacco use, AF/RVR on AC, PAD, uncontrolled T2DM (most recent A1c 11.6) who presents with bilateral L>R heel pain. He has a history of chronic bilateral heel wounds, L more bothersome than R. He has undergone multiple prior debridements, most recently at [facility]. He is unsure who has previously debrided these wounds. He reports they do not heel and recently his LLE has become progressively painful. He has been having fevers. Per chart review his L heel infection began in 11/2023. He was admitted for cellulitis without concern for osteomyelitis at [facility] on 12/19/23. He was managed with debridements by wound care and podiatry and received IV abx. He has seen multiple vascular and orthopaedic teams as well as wound care andpodiatry teams. He was most recently debrided at [facility]. He [place] to get his care [place] [facility] and thus presents here as transfer after presenting to [facility] yesterday and being told he has osteomyelitis of the L calcaneus. Patient currently afebrile and hemodynamically stable. Does have fevers. WBC 13.6, ESR 108, CRP 148.6 He and his are currently living in his brother's house as their house is under construction. She is able to provide much of his history, he is a poor historian. Lab Results Component Value Date HA1C 12.4 (H) 05/04/2019 HA1C 11.2 (H) 03/07/2019 HA1C 10.7 (H) 08/10/2018 Past Medical History: Patient Active Problem List Diagnosis Code Type [...] G45.9 Non-healing open wound of heel S91.309A Past Surgical History: Past Surgical History: Procedure Laterality Date PRO ANASTOMOSIS, AV, ANY SITE Left 09/05/2018 AV FISTULA CREATION, DIRECT HEMODIALYSIS, ANY SITE, EG GABRIEL FISTULA UPPER EXTREMITY (WRVU 11.9) performed by Scout Reese MD at [facility] OR PRO COLONOSCOPY, REMV LESN, SNARE N/A 09/26/2019 COLONOSCOPY, POLYPECTOMY, REMOVAL LESION BY SNARE (WRVU 4.67) performed by Kaye Gibbs MD at [facility] Allergies Allergen Reactions Clindamycin Swelling. Gabapentin swelling Pregabalin Other reaction(s): Unsure Zoloft [Sertraline] Other reaction(s): Unsure No current facility-administered medications on file prior to encounter. Current Outpatient Medications on File Prior to Encounter Medication Sig Dispense Refill sevelamer (Renagel) 800 mg Tablet 2 tablets, 3 times a day with each meal 180 tablet 5 carvediloL (Coreg) 12.5 mg Tablet Take 1 tablet by mouth 2 times daily (with meals). 60 tablet 11 atorvastatin (LIPITOR) 40 mg Tablet Take 1 tablet by mouth every evening. 90 tablet 3 aspirin 81 mg Tablet, Chewable Take 81 mg by mouth daily. 30 tablet 3 FREESTYLE DERICK 14 DAY READER [facility] Use to continuously monitor blood glucose. Scan at least 5 times/day. Dx: 1 each 1 flash glucose sensor (FREESTYLE DERICK 14 DAY SENSOR) Kit q14 days as instructed. Indication= E11.216 kit 3 HUMALOG KWIKPEN 100 unit/mL Insulin Pen Inject subcutaneously 3 times daily. Sliding Scale 0 lidocaine-prilocaine (EMLA) Cream Apply 1 Application topically as needed. 3 furosemide (LASIX) 80 mg Tablet Take 1 tablet by mouth 2 times daily. (Patient taking differently: Take 40 mg by mouth 2 times daily.) 180 tablet 3 blood sugar diagnostic strips (ONETOUCH ULTRA TEST) Strip 1 each by Other route 2 times daily (before meals). Dx code 250.02 uses insulin 100 each 11 insulin detemir U-100 (LEVEMIR) Insulin Pen Inject 55 Units subcutaneously nightly. 10 mL 12 lancets Misc Inject 1 each subcutaneously 2 times daily (before meals). Dx code 250.02 uses [id number] each 11 hydrALAZINE (APRESOLINE) 25 mg Tablet Take 1 tablet by mouth 3 times daily. 90 tablet 3 ranitidine (ZANTAC) 150 mg Tablet Take 150 mg by mouth 2 times daily. 0 nortriptyline (PAMELOR) 25 mg Capsule Take 25 mg by mouth nightly. 0 amLODIPine (NORVASC) 10 mg Tablet Take 1 tablet by mouth daily. 90 tablet 3 pregabalin (LYRICA) 100 mg Capsule Take 100 mg by mouth 2 times daily. multivitamin (THERAGRAN) Tablet Take 1 tablet by mouth daily. Insulin Thornton, Disposable, 31 X 5/16 Needle Inject 1 each subcutaneously 2 times daily (before meals). 100 each 11 Family History: Negative for bleeding/clotting disorders or anesthetic complications. Social History: Social History Occupational History Not on file Tobacco Use Smoking status: Light Smoker Packs/day: .25 Types: Cigarettes Last attempt to quit: 12/26/2018 Years since quittin.1 Smokeless tobacco: Never Tobacco comments: smoking a few a day Vaping Use Vaping Use: Never used Substance and Sexual Activity Alcohol use: No Drug use: Yes Types: Marijuana Comment: multiple times daily Sexual activity: Not on file Review of Systems: As per HPI, otherwise negative Objective: Temp: [36.3 ??C (97.3 ??F)-37.5 ??C (99.5 ??F)] Heart Rate: [68-77] Resp: [16-26] BP: (133-182)/(62-74) SpO2: [92 %-100 %] Heart Rate from SpO2: [68 bpm-73 bpm] Gen: Resting comfortably in NAD, AOx3, answering questions appropriately. HEENT: NC, AT. CV: Regular rate. No murmurs, rubs, or gallops. Pulm: Normal respiratory effort on room air. Skin: Intact Psych: Normal mood and pleasant affect. Right Lower Extremity Exam: Plantar calcaneal wound No effusion in knee / ankle No TTP pelvis, hip, femur, knee, tib/fib, ankle, foot Painless range of motion of Hip / knee / ankle Sensation intact to light touch in Saphenous/Sural/LFC/Femoral/MP/LP/DP/SP distributions - baselineperipheral neuropathy Motor intact hip flexion/extension, knee flexion/extension, ankle flexion/extension, EHL/FHL/TA Foot warm, no palpable pulses Left Lower Extremity Exam: Plantar calcaneal wound - appears significantly worse than R side - malodorous from a distance No effusion in knee / ankle No TTP pelvis, hip, femur, knee, tib/fib, ankle, foot Painless range of motion of Hip / knee / ankle Sensation intact to light touch in Saphenous/Sural/LFC/Femoral/MP/LP/DP/SP distributions - baselineperipheral neuropathy Motor intact hip flexion/extension, knee flexion/extension, ankle flexion/extension, EHL/FHL/TA Foot warm, no palpable pulses Labs: Last wbc, hgb, hct plt Recent Labs 02/18/24 1415 WBC 13.8* HGB 7.2* HCT 22.1* Last CRP, SEDRATE Recent Labs 02/18/24 1415 CRP 148.6* SEDRATE 108* Imaginv Xray bl foot (02/18/24): No erosive bony changes. Large soft tissue defect L plantar foot. Bony architecture b/l feet appears preserved. Air within the soft tissues. CT Lower Extremity (02/18/24): No acute fracture. Large soft tissue defect plantar L foot with apparent exposure of the plantar calcaneus posteriorly. There is air within the calcaneus . Assessment/Plan: 58 y.o. male with history CKD on M/W/F HD, HTN, tobacco use, AF/RVR on AC, PAD, uncontrolled T2DM (most recent A1c 11.6) who presents with likely osteomyelitis of the left calcaneus in the setting of chronic bilateral calcaneal wounds s/p multiple debridements. He has been managed and seen by orthopaedic, vascular, podiatric, and wound care services over the past 2 months at multiple hospitals. At this point he has failed local wound care and medical management and presents with signs of systemic infection likely requiring L BKA. ABIs were obtained demonstrating moderate LLE arterial occlusive disease with monophasic waveform throughout and significant progression when compared to prior. The patient has previously been seen by vascular surgery at outside institutions who recommended orthopaedic surgery intervention given notarget for revascularization. However given presence of worsening arterial disease with abnormal MELLY, poor perfusion may be contributing to both his presenting pathology and may affect his post-operative wound healing ability. Recommend vascular surgery consultation and management as vascular surgery may be better suited for managing his pathophysiology. Orthopaedic surgery will sign off at this time. Please page [phone] with questions or concerns. Dany Gambino MD Orthopaedic Surgery, [phone] * Op Note - iNcolas Melgar MD - 02/18/2024 6:56 PM EDT [facility] Operative Note Patient Name: Gerson Bruner : [id number] MR#: [id number] Case Date: 02/18/2024 Surgeon: Surgeon(s) and Role: * Ari Renae MD - Primary * Nicolas Melgar MD - Resident - Assisting * Marti Garcia MD - Resident - Assisting Preoperative diagnosis: LLE wound Postoperative diagnosis: LLE wound Procedure(s) (LRB): @AMPUTATION, BELOW-KNEE, OPEN, GUILLOTINE (WRVU 9.79) (Left) Findings: Left foot with gangrenous calcaneal and left lateral foot ulcer. Guillotine amputation performed through Anesthesia: General Estimated Blood Loss: 100 mL Specimens removed during surgery: Order Name Source Comment Collection Info Order Time SPECIMEN TO PATHOLOGY LLE wound Left Foot excision 02/18/2024 7:12 PM Time specimen removed from patient: 7:02 PM Number of tissue samples (in container) [...] pertinent to this patient.) HPI/Surgical Indications: Gerson Sykes is a 58-year-old male with nonhealing ulcers of his bilateral heels, with the left grossly infected. Given the appearance of the wound and the patient's recent fevers, he requires urgentsource control as these wounds are unlikely to heal. Risks, benefits, and alternatives to a left guillotine through ankle amputation were reviewed with the patient and he wished proceed with surgery. Procedure Description: After informed consent was obtained, the patient was brought to the operating room, and placed on the operating room table in the supine position. General endotracheal anesthesia was induced. The patient's left lower extremity was prepped and draped in the usual sterile fashion. A timeout was performed. We began the operation by making a circumferential incision around the ankle at the level of the ankle mortise with a #10 blade. This was carried down through the skin and subcutaneous tissue to the level of the bone. Next, using a Gigli saw we then transected through the ankle mortise joint through the distal tibiaand fibula and remaining subcutaneous and soft tissue. Next, we controlled the transected vessels including the anterior tibial artery, peroneal artery, posterior tibial artery, as well as the greater saphenous vein. We then achieved excellent hemostasisto the surrounding subcutaneous tissue. The wound was then irrigated with copious amounts of sterile saline. The wound was then dressed with Surgicel gauze, followed by a large burn pad, followed by Kerlix dressing. At the end of the case, all needle, sponge, and instrument counts were correct. The patient was then awakened from general anesthesia and taken to the postanesthesia care unit in good condition. Dr. Renae was present for the entirety of the operation. Surgical Infection Prevention Bundle Used? N/A Nicolas Melgar MD Associated attestation - Ari Renae MD - 02/22/2024 8:50 AM EDT Attestation: Case Date: 02/21/2024 I was present and I participated during the entire procedure (does not need to include opening and closing). Ari Renae MD 02/22/2024 documented in this encounter Plan of Treatment Not on file documented as of this encounter Procedures Procedure Name Priority Date/Time Associated Diagnosis Comments POCT GLUCOSE Routine 02/25/2024 2:02 PM EDT POCT GLUCOSE Routine 02/25/2024 12:19 PM EDT POCT GLUCOSE Routine 02/25/2024 10:00 AM EDT POCT GLUCOSE Routine 02/25/2024 3:38 AM EDT HEMOGRAM Routine 02/25/2024 2:14 AM EDT DIFFERENTIAL, AUTOMATED Routine 02/25/20 2:14 AM EDT CBC (WITH DIFF) Routine 02/25/2024 2:14 AM EDT PHOSPHORUS Routine 02/25/2024 2:14 AM EDT MAGNESIUM Routine 02/25/2024 2:14 AM EDT BASIC METABOLIC PANEL Routine 02/25/2024 2:14 AM EDT POCT GLUCOSE Routine 02/24/2024 11:33 PM EDT POCT GLUCOSE Routine 02/24/2024 8:15 PM EDT POCT GLUCOSE Routine 02/24/2024 4:13 PM EDT POCT GLUCOSE Routine 02/24/2024 12:05 PM EDT POCT GLUCOSE Routine 02/24/2024 7:44 AM EDT PTH Routine 02/24/2024 6:07 AM EDT HEMOGRAM Routine 02/24/2024 6:07 AM EDT DIFFERENTIAL, AUTOMATED Routine 02/24/20 6:07 AM EDT IRON AND TIBC Routine 02/24/2024 6:07 AM EDT CBC (WITH DIFF) Routine 02/24/2024 6:07 AM EDT PHOSPHORUS Routine 02/24/2024 6:07 AM EDT MAGNESIUM Routine 02/24/2024 6:07 AM EDT BASIC METABOLIC PANEL Routine 02/24/2024 6:07 AM EDT POCT GLUCOSE Routine 02/24/2024 4:01 AM EDT POCT GLUCOSE Routine 02/23/2024 11:55 PM EDT POCT GLUCOSE Routine 02/23/2024 7:33 PM EDT HEMOGRAM STAT 02/23/2024 5:25 PM EDT POCT GLUCOSE Routine 02/23/2024 4:48 PM EDT POCT GLUCOSE Routine 02/23/2024 3:06 PM EDT POCT GLUCOSE Routine 02/23/2024 2:26 PM EDT POCT GLUCOSE Routine 02/23/2024 1:42 PM EDT POCT GLUCOSE Routine 02/23/2024 1:15 PM EDT TRANSFUSE RED BLOOD CELLS Routine 02/23/2024 9:45 AM EDT POCT GLUCOSE Routine 02/23/2024 8:14 AM EDT ABORH RECHECK STATUS Routine 02/23/2024 7:12 AM EDT ABORH TYPE MANUAL Routine 02/23/2024 7:1 2 AM EDT ANTIBODY IDENTIFICATION Routine 02/23/20 7:12 AM EDT TYPE AND SCREEN ([facility]/CGP/CHASE) Routine 02/23/2024 7:12 AM EDT VANCOMYCIN LEVEL, RANDOM Timed 02/23/2024 4:11 AM EDT HEMOGRAM Routine 02/23/2024 4:11 AM EDT DIFFERENTIAL, AUTOMATED Routine 02/23/20 4:11 AM EDT CBC (WITH DIFF) Routine 02/23/2024 4:11 AM EDT PHOSPHORUS Routine 02/23/2024 4:11 AM EDT MAGNESIUM Routine 02/23/2024 4:11 AM EDT BASIC METABOLIC PANEL Routine 02/23/2024 4:11 AM EDT POCT GLUCOSE Routine 02/23/2024 4:06 AM EDT POCT GLUCOSE Routine 02/23/2024 2:06 AM EDT POCT GLUCOSE Routine 02/23/2024 12:42 AM EDT POCT GLUCOSE Routine 02/22/2024 11:34 PM EDT POCT GLUCOSE Routine 02/22/2024 7:42 PM EDT POCT GLUCOSE Routine 02/22/2024 4:00 PM EDT POCT GLUCOSE Routine 02/22/2024 11:48 AM EDT AMPUTATION, BELOW-KNEE, CLOSED Routine 02/22/2024 8:55 AM EDT POCT GLUCOSE Routine 02/22/2024 8:09 AM EDT SCAN, PERIPHERAL BLOOD Routine 4:53 AM EDT HEMOGRAM Routine 02/22/2024 4:53 AM EDT DIFFERENTIAL, AUTOMATED Routine 02/22/20 4:53 AM EDT CBC (WITH DIFF) Routine 02/22/2024 4:53 AM EDT PHOSPHORUS Routine 02/22/2024 4:53 AM EDT MAGNESIUM Routine 02/22/2024 4:53 AM EDT ALBUMIN LEVEL Routine 02/22/2024 4:53 AM EDT BASIC METABOLIC PANEL Routine 02/22/2024 4:53 AM EDT POCT GLUCOSE Routine 02/22/2024 3:35 AM EDT POCT GLUCOSE Routine 02/21/2024 11:57 PM EDT POCT GLUCOSE Routine 02/21/2024 8:15 PM EDT HEMOGLOBIN AND HEMATOCRIT, BLOOD STAT 02/21/2024 7:15 PM EDT POCT GLUCOSE Routine 02/21/2024 6:08 PM EDT POCT GLUCOSE Routine 02/21/2024 5:17 PM EDT SPECIMEN TO PATHOLOGY Routine 02/21/2024 5:05 PM EDT 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 POCT GLUCOSE Routine 02/21/2024 3:12 PM EDT POCT GLUCOSE Routine 02/21/2024 2:20 PM EDT POCT GLUCOSE Routine 02/21/2024 1:38 PM EDT POCT GLUCOSE Routine 02/21/2024 12:18 PM EDT SURGICAL PATHOLOGY REPORT Routine 02/21/2024 12:01 PM EDT POCT GLUCOSE Routine 02/21/2024 8:36 AM EDT BLOOD CULTURE STAT 02/21/2024 8:03 AM EDT POCT GLUCOSE Routine 02/21/2024 7:41 AM EDT BLOOD CULTURE STAT 02/21/2024 6:25 AM EDT HEMOGRAM Routine 02/21/2024 6:02 AM EDT DIFFERENTIAL, AUTOMATED Routine 02/21/20 6:02 AM EDT CBC (WITH DIFF) Routine 02/21/2024 6:02 AM EDT PHOSPHORUS Routine 02/21/2024 6:02 AM EDT MAGNESIUM Routine 02/21/2024 6:02 AM EDT BASIC METABOLIC PANEL Routine 02/21/2024 6:02 AM EDT POCT GLUCOSE Routine 02/21/2024 4:29 AM EDT POCT GLUCOSE Routine 02/21/2024 12:42 AM EDT LAB SCAN 02/21/2024 12:00 AM EDT POCT GLUCOSE Routine 02/20/2024 7:39 PM EDT POCT GLUCOSE Routine 02/20/2024 5:33 PM EDT POCT GLUCOSE Routine 02/20/2024 12:14 PM EDT POCT GLUCOSE Routine 02/20/2024 8:20 AM EDT VANCOMYCIN LEVEL, RANDOM Timed 02/20/2024 5:21 AM EDT HEMOGRAM Routine 02/20/2024 5:21 AM EDT DIFFERENTIAL, AUTOMATED Routine 02/20/20 5:21 AM EDT CBC (WITH DIFF) Routine 02/20/2024 5:21 AM EDT BASIC METABOLIC PANEL Routine 02/20/2024 5:21 AM EDT POCT GLUCOSE Routine 02/20/2024 3:31 AM EDT POCT GLUCOSE Routine 02/19/2024 11:35 PM EDT POCT GLUCOSE Routine 02/19/2024 7:52 PM EDT POCT GLUCOSE Routine 02/19/2024 4:00 PM EDT BLOOD CULTURE STAT 02/19/2024 3:37 PM EDT CKD (chronic kidney disease) stage 5, GFR less than 15 ml/min HEPATITIS B SURFACE ANTIBODY Routine 02/19/2024 3:05 PM EDT CKD (chronic kidney disease) stage 5, GFR less than 15 ml/min HEPATITIS B SURFACE ANTIGEN Routine 02/19/2024 3:05 PM EDT CKD (chronic kidney disease) stage 5, GFR less than 15 ml/min BLOOD CULTURE STAT 02/19/2024 3:05 PM EDT CKD (chronic kidney disease) stage 5, GFR less than 15 ml/min FERRITIN Routine 02/19/2024 3:05 PM EDT POCT GLUCOSE Routine 02/19/2024 12:16 PM EDT POCT GLUCOSE Routine 02/19/2024 10:44 AM EDT POCT GLUCOSE Routine 02/19/2024 8:28 AM EDT POCT GLUCOSE Routine 02/19/2024 8:09 AM EDT POCT GLUCOSE Routine 02/19/2024 7:48 AM EDT HEMOGRAM Routine 02/19/2024 5:28 AM EDT DIFFERENTIAL, AUTOMATED Routine 02/19/20 5:28 AM EDT CBC (WITH DIFF) Routine 02/19/2024 5:28 AM EDT BASIC METABOLIC PANEL Routine 02/19/2024 5:28 AM EDT POCT GLUCOSE Routine 02/19/2024 4:32 AM EDT POCT GLUCOSE Routine 02/19/2024 2:17 AM EDT POCT GLUCOSE Routine 02/19/2024 12:29 AM EDT MRSA PCR SCREEN Routine 02/18/2024 11:02 PM EDT POCT GLUCOSE Routine 02/18/2024 8:07 PM EDT SPECIMEN TO PATHOLOGY Routine 02/18/2024 7:12 PM EDT SURGICAL PATHOLOGY REPORT Routine 02/18/2024 7:02 PM EDT Amputation Low Leg, Circular ([id number]) 02/18/2024 6:26 PM EDT LLE wound AMPUTATION, BELOW-KNEE, OPEN, GUILLOTINE Routine 02/18/2024 5:50 PM EDT REQUEST FOR 2ND READ CT LOWER EXTREMITY STAT 02/18/2024 5:13 PM EDT XR FOOT MIN 3 VIEWS BILAT STAT 02/18/2024 4:39 PM EDT MELLY, LEGS, MULTIPLE LEVELS STAT 02/18/2024 3:31 PM EDT Wound infection BLOOD GAS VENOUS POC Routine 02/18/2024 3:16 PM EDT TYPE AND SCREEN ([facility]/CGP/CHASE) STAT 02/18/2024 3:07 PM EDT ABORH RECHECK STATUS Routine 02/18/2024 3:00 PM EDT BLOOD CULTURE STAT 02/18/2024 3:00 PM EDT EKG 12-LEAD STAT 02/18/2024 2:42 PM EDT CRP, ACUTE INFLAMMATION STAT 02/18/20 2:15 PM EDT HEMOGRAM STAT 02/18/2024 2:15 PM EDT DIFFERENTIAL, AUTOMATED STAT 02/18/20 2:15 PM EDT GOLD TUBE HOLD STAT 02/18/2024 2:15 PM EDT BLOOD CULTURE STAT 02/18/2024 2:15 PM EDT HC PARTIAL THROMBOPLASTIN TIME STAT 02/18/2024 2:15 PM EDT SEDIMENTATION RATE STAT 02/18/2024 2: 15 PM EDT PROTHROMBIN TIME STAT 02/18/2024 2:15 PM EDT CBC (WITH DIFF) STAT 02/18/2024 2:15 PM EDT BASIC METABOLIC PANEL STAT 02/18/2024 2:15 PM EDT documented in this encounter Results * (ABNORMAL) POCT Glucose (02/25/2024 2:02 PM EDT) Glucose, POC 223(H) 65 - 199 mg/dL [facility] Comment: Supplemental ranges: <140 mg/dL before meals <180 mg/dL all other times of the day Blood 02/25/2024 2:02 PM EDT 02/25/2024 2:02 PM EDT Ari Renae MD POINT OF CARE TEST O ADITIERAKEREN [facility] [place] [address] * POCT Glucose (02/25/2024 12:19 PM EDT) Glucose, POC 152 65 - 199 mg/dL [facility] Comment: Supplemental ranges: <140 mg/dL before meals <180 mg/dL all other times of the day Blood 02/25/2024 12:1 9 PM EDT 02/25/2024 12:19 PM EDT Ari Renae MD POINT OF CARE TEST O CARMELITA [facility] [place] [address] * POCT Glucose (02/25/2024 10:00 AM EDT) Glucose, POC 113 65 - 199 mg/dL [facility] Comment: Supplemental ranges: <140 mg/dL before meals <180 mg/dL all other times of the day Blood 02/25/2024 10:0 0 AM EDT 02/25/2024 10:00 AM EDT Ari Renae MD POINT OF CARE TEST O ADITIERAKEREN [facility] [place] [address] * POCT Glucose (02/25/2024 3:38 AM EDT) Glucose, POC 163 65 - 199 mg/dL [facility] Comment: Supplemental ranges: <140 mg/dL before meals <180 mg/dL all other times of the day Blood 02/25/2024 3:38 AM EDT 02/25/2024 3:38 AM EDT Ari Renae MD POINT OF CARE TEST O RDERABLES [facility] [place] [address] * (ABNORMAL) Differential, Automated (02/25/2024 2:14 AM EDT) Pathologist [facility] Neutrophil % 66.9 % [facility] Neutrophil Absolute 8.49(H) 1.70 - 6.10 x10(3)/mc L [facility] Lymph % 18.8 % [facility] Lymphocytes Abs 2.4 0.9 - 3.2 x10(3)/mc L [facility] Monocyte % 10.5 % [facility] Monocyte Abs 1.3(H) 0.3 - 0.9 x10(3)/mc L [facility] Eos % 2.7 % [facility] Eosinophils Abs 0.3 0.0 - 0.4 x10(3)/mc L [facility] Basophil % 0.7 % [facility] Baso Absolute 0.1 0.0 - 0.1 x10(3)/mc L [facility] Immature Gran % 0.40 % [facility] Comment: Immature granulocytes(IG's)percentage and absolute count will include metamyelocytes, myelocytes, and promyelocytes. Blood smears from CBCs yielding IG's will be scanned manually for concordance. If this scan disagrees with the automated IG or if promyelocytes are noted, a manual differential will be performed. Immature Gran Absolute 0.05(H) 0.00 - 0.04 x10(3)/ L [facility] Blood 02/25/2024 2:14 AM EDT 02/25/2024 2:22 AM EDT Narrative Resulting Agency Comment Spec In Lab Marti Garcia MD HEMATOLOGY ORDERABL ES [facility] [place] [address] * (ABNORMAL) Hemogram (02/25/2024 2:14 AM EDT) White Blood Cell 12.7(H) 4.0 - 9.5 x10(3)/[facility] Red Blood Cell 2.96(L) 4.58 - 5.54 x10(6)/[facility] Hemoglobin 8.4(L) 13.7 - 16.5 g/dL [facility] Hematocrit 26.6(L) 40.5 - 48.5 % [facility] Mean Cell Volume 89.9 82.9 - 93.1 fL [facility] Mean Cell Hemoglobin 28.4 27.5 - 32.1 pg [facility] Mean Cell Hemoglobin Concentration 31.6(L) 32.0 - 35.7 g/dL [facility] Platelet 482(H) 145 - 357 x10(3)/ L [facility] RDW Standard Deviation 47.5(H) 36.0 - 45.0 fL [facility] RDW coefficient of variation 14.6(H) 11.4 - 13.8 % [facility] Mean Platelet Volume 10.6 7.6 - 12.9 fL [facility] NRBC% auto 0.0 % [facility] NRBC Absolute 0.000 0.000 - 0.000 x10(3)/ L [facility] Blood 02/25/2024 2:14 AM EDT 02/25/2024 2:22 AM EDT Narrative Resulting Agency Comment Spec In Lab Marti Garcia MD HEMATOLOGY ORDERABL ES Performing Organization Address [facility] Co de Phone Number [facility] [place] [address] * (ABNORMAL) Phosphorus (02/25/2024 2:14 AM EDT) Phosphorus 5.6(H) 2.5 - 4.5 mg/dL [facility] Blood 02/25/2024 2:14 AM EDT 02/25/2024 2:22 AM EDT Narrative Resulting Agency Comment Spec In Lab Ari Renae MD CHEMISTRY ORDERABLES Performing Organization Address [facility] de Phone Number [facility] [place] [address] * Magnesium (02/25/2024 2:14 AM EDT) Magnesium 0.87 0.69 - 1.07 mmol/L [facility] Blood 02/25/2024 2:14 AM EDT 02/25/2024 2:22 AM EDT Narrative Resulting Agency Comment Spec In Lab Ari Renae MD CHEMISTRY ORDERABLES Performing Organization Address [facility] de Phone Number [facility] [place] [address] * (ABNORMAL) Basic Metabolic Panel (non-fasting) (02/25/2024 2:14 AM EDT) Glucose 194 65 - 199 mg/dL [facility] Comment:Diabetes: >=200 mg/d L plus symptoms Blood Urea Nitrogen 32(H) 10 - 20 mg/dL [facility] Creatinine 6.92(H) 0.80 - 1.50 mg/dL [facility] Comment:result rechecked-MG Sodium 137 135 - 145 mmol/L [facility] Potassium 5.1(H) 3.5 - 5.0 mmol/L [facility] Comment: Please note: ??Patients with WBC >100,000 may have falsely elevated Potassium levels. ??For accurate Potassium quantification in these patients send serum separator tube (gold top) for subsequent determinations. ??Contact the Clinical Chemistry Laboratory if there are any questions. Chloride 98 98 - 107 mmol/L [facility] Carbon Dioxide 26 22 - 31 mmol/L [facility] Anion Gap 13 5 - 15 mmol/L [facility] Calcium 8.9 8.5 - 10.5 mg/dL [facility] Est Glomerular Filtration Rate 9(L) >=60 mL/min/1. 73 m?? [facility] [...] and symptoms in addition to eGFR. Blood 02/25/2024 2:14 AM EDT 02/25/2024 2:22 AM EDT Narrative Resulting Agency Comment Spec In Lab Ari Renea MD CHEMISTRY ORDERABLES [facility] [place] [address] * (ABNORMAL) POCT Glucose (02/24/2024 11:33 PM EDT) Glucose, POC 214(H) 65 - 199 mg/dL [facility] Comment: Supplemental ranges: <140 mg/dL before meals <180 mg/dL all other times of the day Blood 02/24/2024 11:3 3 PM EDT 02/24/2024 11:33 PM EDT Ari Renae MD POINT OF CARE TEST O CARMELITA Performing Organization Address City/[facility] Co de Phone Number [facility] [place] [address] * (ABNORMAL) POCT Glucose (02/24/2024 8:15 PM EDT) Glucose, POC 225(H) 65 - 199 mg/dL [facility] Comment: Supplemental ranges: <140 mg/dL before meals <180 mg/dL all other times of the day Blood 02/24/2024 8:15 PM EDT 02/24/2024 8:15 PM EDT Ari Renae MD POINT OF CARE TEST O CARMELITA Performing Organization Address [facility] Co de Phone Number [facility] [place] [address] * (ABNORMAL) POCT Glucose (02/24/2024 4:13 PM EDT) Glucose, POC 210(H) 65 - 199 mg/dL [facility] Comment: Supplemental ranges: <140 mg/dL before meals <180 mg/dL all other times of the day Blood 02/24/2024 4:13 PM EDT 02/24/2024 4:13 PM EDT Ari Renae MD POINT OF CARE TEST O CARMELITA Performing Organization Address City/[facility]/ZIP Co de Phone Number [facility] [place] [address] * POCT Glucose (02/24/2024 12:05 PM EDT) Glucose, POC 147 65 - 199 mg/dL [facility] Comment: Supplemental ranges: <140 mg/dL before meals <180 mg/dL all other times of the day Blood 02/24/2024 12:0 5 PM EDT 02/24/2024 12:05 PM EDT Ari Renae MD POINT OF CARE TEST O RDERABLES Performing Organization Address City/[facility]/ZIP Co de Phone Number [facility] [place] [address] * POCT Glucose (02/24/2024 7:44 AM EDT) Glucose, POC 114 65 - 199 mg/dL [facility] Comment: Supplemental ranges: <140 mg/dL before meals <180 mg/dL all other times of the day Blood 02/24/2024 7:44 AM EDT 02/24/2024 7:44 AM EDT Ari Renae MD POINT OF CARE TEST O RDERABLES Performing Organization Address City/[facility]/ZIP Co de Phone Number [facility] [place] [address] * (ABNORMAL) PTH (02/24/2024 6:07 AM EDT) Parathyroid Hormone 180(H) 15 - 65 pg/mL [facility] Blood Venous Draw / Unknown 02/24/2024 6:07 AM EDT 02/24/2024 4:52 PM EDT Narrative Resulting Agency Comment Spec In Lab Jordan Sepulveda MD CHEMISTRY ORDERABLES Performing Organization Address City/[facility]/ZIP Co de Phone Number [facility] [place] [address] * (ABNORMAL) Iron and TIBC (02/24/2024 6:07 AM EDT) Iron 19(L) 45 - 160 mcg/dL [facility] TIBC 120(L) 250 - 450 mcg/dL [facility] Iron Saturation 16(L) 20 - 50 % [facility] Blood Venous Draw / Unknown 02/24/2024 6:07 AM EDT 02/24/2024 6:28 AM EDT Narrative Resulting Agency Comment Spec In Lab Jordan Sepulveda MD CHEMISTRY ORDERABLES [facility] [place] [address] * (ABNORMAL) Differential, Automated (02/24/2024 6:07 AM EDT) Neutrophil % 72.2 % [facility] Neutrophil Absolute 10.22(H) 1.70 - 6.10 x10(3)/mc L [facility] Lymph % 13.2 % [facility] Lymphocytes Abs 1.9 0.9 - 3.2 x10(3)/mc L [facility] Monocyte % 10.9 % [facility] Monocyte Abs 1.5(H) 0.3 - 0.9 x10(3)/mc L [facility] Eos % 2.8 % [facility] Eosinophils Abs 0.4 0.0 - 0.4 x10(3)/mc L [facility] Basophil % 0.4 % [facility] Baso Absolute 0.1 0.0 - 0.1 x10(3)/mc L [facility] Immature Gran % 0.50 % [facility] Comment: Immature granulocytes(IG's)percentage and absolute count will include metamyelocytes, myelocytes, and promyelocytes. Blood smears from CBCs yielding IG's will be scanned manually for concordance. If this scan disagrees with the automated IG or if promyelocytes are noted, a manual differential will be performed. Immature Gran Absolute 0.07(H) 0.00 - 0.04 x10(3)/mc L [facility] Blood 02/24/2024 6:07 AM EDT 02/24/2024 6:23 AM EDT Narrative Resulting Agency Comment Spec In Lab Marti Garcia MD HEMATOLOGY ORDERABL ES Performing Organization Address City/[facility]/ZIP Co de Phone Number [facility] [place] [address] * (ABNORMAL) Hemogram (02/24/2024 6:07 AM EDT) White Blood Cell 14.1(H) 4.0 - 9.5 x10(3)/mc L [facility] Red Blood Cell 2.91(L) 4.58 - 5.54 x10(6)/mc L [facility] Hemoglobin 8.4(L) 13.7 - 16.5 g/dL [facility] Hematocrit 25.8(L) 40.5 - 48.5 % [facility] Mean Cell Volume 88.7 82.9 - 93.1 fL [facility] Mean Cell Hemoglobin 28.9 27.5 - 32.1 pg [facility] Mean Cell Hemoglobin Concentration 32.6 32.0 - 35.7 g/dL [facility] Platelet 445(H) 145 - 357 x10(3)/mc L [facility] RDW Standard Deviation 47.0(H) 36.0 - 45.0 fL [facility] RDW coefficient of variation 14.5(H) 11.4 - 13.8 % [facility] Mean Platelet Volume 10.7 7.6 - 12.9 fL [facility] NRBC% auto 0.0 % [facility] NRBC Absolute 0.000 0.000 - 0.000 x10(3)/mc L [facility] Blood 02/24/2024 6:07 AM EDT 02/24/2024 6:23 AM EDT Narrative Resulting Agency Comment Spec In Lab Marti Garcia MD HEMATOLOGY ORDERABL ES Performing Organization Address City/[facility]/ZIP Co de Phone Number [facility] [place] [address] * (ABNORMAL) Phosphorus (02/24/2024 6:07 AM EDT) Phosphorus 4.8(H) 2.5 - 4.5 mg/dL [facility] Blood 02/24/2024 6:07 AM EDT 02/24/2024 6:23 AM EDT Narrative Resulting Agency Comment Spec In Lab Ari Renae MD CHEMISTRY ORDERABLES Performing Organization Address [facility]/ZIP Co de Phone Number [facility] [place] [address] * Magnesium (02/24/2024 6:07 AM EDT) Magnesium 0.84 0.69 - 1.07 mmol/L [facility] Blood 02/24/2024 6:07 AM EDT 02/24/2024 6:23 AM EDT Narrative Resulting Agency Comment Spec In Lab Ari Renae MD CHEMISTRY ORDERABLES Performing Organization Address [facility]/ZIP Co de Phone Number [facility] [place] [address] * (ABNORMAL) Basic Metabolic Panel (non-fasting) (02/24/2024 6:07 AM EDT) Glucose 123 65 - 199 mg/dL [facility] Comment:Diabetes: >=200 mg/d L plus symptoms Blood Urea Nitrogen 25(H) 10 - 20 mg/dL [facility] Creatinine 5.70(H) 0.80 - 1.50 mg/dL [facility] Comment:result rechecked-tmp Sodium 137 135 - 145 mmol/L [facility] Potassium 4.7 3.5 - 5.0 mmol/L [facility] Comment: Please note: ??Patients with WBC >100,000 may have falsely elevated Potassium levels. ??For accurate Potassium quantification in these patients send serum separator tube (gold top) for subsequent determinations. ??Contact the Clinical Chemistry Laboratory if there are any questions. Chloride 97(L) 98 - 107 mmol/L [facility] Carbon Dioxide 26 22 - 31 mmol/L [facility] Anion Gap 14 5 - 15 mmol/L [facility] LABORATORY Calcium 9.2 8.5 - 10.5 mg/dL [facility] Est Glomerular [...] and symptoms in addition to eGFR. Blood 02/24/2024 6:07 AM EDT 02/24/2024 6:23 AM EDT Narrative Resulting Agency Comment Spec In Lab Ari Renae MD CHEMISTRY ORDERABLES Performing Organization Address City/[facility]/ZIP Co de Phone Number [facility] [place] [address] * POCT Glucose (02/24/2024 4:01 AM EDT) Glucose, POC 106 65 - 199 mg/dL [facility] Comment: Supplemental ranges: <140 mg/dL before meals <180 mg/dL all other times of the day Blood 02/24/2024 4:01 AM EDT 02/24/2024 4:01 AM EDT Ari Renae MD POINT OF CARE TEST O RDERABLES [facility] [place] [address] * POCT Glucose (02/23/2024 11:55 PM EDT) Glucose, POC 93 65 - 199 mg/dL [facility] Comment: Supplemental ranges: <140 mg/dL before meals <180 mg/dL all other times of the day Blood 02/23/2024 11:5 5 PM EDT 02/23/2024 11:55 PM EDT Ari Renae MD POINT OF CARE TEST O RDERAKEREN [facility] [place] [address] * POCT Glucose (02/23/2024 7:33 PM EDT) Glucose, POC 103 65 - 199 mg/dL [facility] Comment: Supplemental ranges: <140 mg/dL before meals <180 mg/dL all other times of the day Blood 02/23/2024 7:33 PM EDT 02/23/2024 7:33 PM EDT Ari Renae MD POINT OF CARE TEST O CARMELITA Performing Organization Address City/[facility]/ZIP Co de Phone Number [facility] [place] [address] * (ABNORMAL) Hemogram (02/23/2024 5:25 PM EDT) Pathologist [facility] White Blood Cell 14.8(H) 4.0 - 9.5 x10(3)/mc L [facility] Red Blood Cell 3.39(L) 4.58 - 5.54 x10(6)/mc L [facility] Hemoglobin 9.7(L) 13.7 - 16.5 g/dL [facility] Hematocrit 30.2(L) 40.5 - 48.5 % [facility] Mean Cell Volume 89.1 82.9 - 93.1 fL [facility] Mean Cell Hemoglobin 28.6 27.5 - 32.1 pg [facility] Mean Cell Hemoglobin Concentration 32.1 32.0 - 35.7 g/dL [facility] Platelet 476(H) 145 - 357 x10(3)/mc L [facility] RDW Standard Deviation 46.4(H) 36.0 - 45.0 fL [facility] RDW coefficient of variation 14.3(H) 11.4 - 13.8 % [facility] Mean Platelet Volume 10.9 7.6 - 12.9 fL [facility] NRBC% auto 0.0 % [facility] NRBC Absolute 0.000 0.000 - 0.000 x10(3)/mc L [facility] Blood 02/23/2024 5:25 PM EDT 02/23/2024 5:45 PM EDT Narrative Resulting Agency Comment Spec In Lab Ari Renae MD HEMATOLOGY ORDERABLE S Performing Organization Address City/[facility]/ZIP Co de Phone Number [facility] [place] [address] * POCT Glucose (02/23/2024 4:48 PM EDT) Glucose, POC 129 65 - 199 mg/dL [facility] Comment: Supplemental ranges: <140 mg/dL before meals <180 mg/dL all other times of the day Blood 02/23/2024 4:48 PM EDT 02/23/2024 4:48 PM EDT Ari Renae MD POINT OF CARE TEST O RDERABLES [facility] [place] [address] * POCT Glucose (02/23/2024 3:06 PM EDT) Glucose, POC 113 65 - 199 mg/dL [facility] Comment: Supplemental ranges: <140 mg/dL before meals <180 mg/dL all other times of the day Blood 02/23/2024 3:06 PM EDT 02/23/2024 3:06 PM EDT Ari Renae MD POINT OF CARE TEST O RDERAKEREN Performing Organization Address [facility]/ZIP Co de Phone Number [facility] [place] [address] * (ABNORMAL) POCT Glucose (02/23/2024 2:26 PM EDT) Glucose, POC 63(L) 65 - 199 mg/dL [facility] Comment: Supplemental ranges: <140 mg/dL before meals <180 mg/dL all other times of the day Blood 02/23/2024 2:26 PM EDT 02/23/2024 2:26 PM EDT Ari Renae MD POINT OF CARE TEST O CARMELITA Performing Organization Address [facility] Co de Phone Number [facility] [place] [address] * (ABNORMAL) POCT Glucose (02/23/2024 1:42 PM EDT) Glucose, POC 57(L) 65 - 199 mg/dL [facility] Comment: Supplemental ranges: <140 mg/dL before meals <180 mg/dL all other times of the day Blood 02/23/2024 1:42 PM EDT 02/23/2024 1:42 PM EDT Ari Renae MD POINT OF CARE TEST O RDERAKEREN Performing Organization Address [facility]/ZIP Co de Phone Number [facility] [place] [address] * POCT Glucose (02/23/2024 1:15 PM EDT) Glucose, POC 69 65 - 199 mg/dL [facility] Comment: Supplemental ranges: <140 mg/dL before meals <180 mg/dL all other times of the day Blood 02/23/2024 1:15 PM EDT 02/23/2024 1:15 PM EDT Ari Renae MD POINT OF CARE TEST O CARMELITA Performing Organization Address [facility] Co de Phone Number [facility] [place] [address] * Transfuse RBC (02/23/2024 11:44 AM EDT) Ari Renae MD NURSING TREATMENT OR DERABLES - BLOOD ADMIN * Transfuse RBC (02/23/2024 11:44 AM EDT) Ari Renae MD NURSING TREATMENT OR DERABLES - BLOOD ADMIN * POCT Glucose (02/23/2024 8:14 AM EDT) Glucose, POC 111 65 - 199 mg/dL [facility] Comment: Supplemental ranges: <140 mg/dL before meals <180 mg/dL all other times of the day Blood 02/23/2024 8:14 AM EDT 02/23/2024 8:14 AM EDT Ari Renae MD POINT OF CARE TEST O CARMELITA Performing Organization Address [facility]/ZIP Co de Phone Number [facility] [place] [address] * ABORh Type Manual (02/23/2024 7:12 AM EDT) ABORH TYPE A POSITIVE [facility] 02/23/2024 7:12 AM EDT 02/23/2024 7:12 AM EDT Jean Henning MD BLOOD BANK LAB O RDERAKEREN [facility] [place] [address] * Antibody identification (02/23/2024 7:12 AM EDT) Ab Identified Rouleaux [facility] 02/23/2024 7:12 AM EDT 02/23/2024 7:12 AM EDT Jean Henning MD BLOOD BANK LAB O RDERABLES Performing Organization Address City/[facility]/ZIP Co de Phone Number [facility] [place] [address] * ABORH Recheck Status (02/23/2024 7:12 AM EDT) ABORH Type Recheck Completed [facility] Blood 02/23/2024 7:12 AM EDT 02/23/2024 7:17 AM EDT Narrative Resulting Agency Comment Spec In Lab Jean Henning MD BLOOD BANK LAB O RDERABLES Performing Organization Address [facility] Co de Phone Number [facility] [place] [address] * Type and screen ([facility] (02/23/2024 7:12 AM EDT) Patient BB History Found [facility] Expires at [id number] on: 02/26/2024 [facility] Ab Screen Interp Negative [facility] Blood 02/23/2024 7:12 AM EDT 02/23/2024 7:12 AM EDT Narrative [facility] - 02/23/2024 7:12 AM EDT This Type and Screen result is only valid at the [facility] Resulting Agency Comment Spec In Lab Ari Renae MD BLOOD BANK LAB ORDER FRANSISCO Performing Organization Address City/[facility]/ZIP Co de Phone Number [facility] [place] [address] * (ABNORMAL) Differential, Automated (02/23/2024 4:11 AM EDT) Neutrophil % 72.9 % [facility] Neutrophil Absolute 11.74(H) 1.70 - 6.10 x10(3)/[facility] Lymph % 11.6 % [facility] Lymphocytes Abs 1.9 0.9 - 3.2 x10(3)/[facility] Monocyte % 12.6 % [facility] Monocyte Abs 2.0(H) 0.3 - 0.9 x10(3)/[facility] Eos % 2.0 % [facility] Eosinophils Abs 0.3 0.0 - 0.4 x10(3)/[facility] Basophil % 0.4 % [facility] Baso Absolute 0.1 0.0 - 0.1 x10(3)/[facility] Immature Gran % 0.50 % [facility] Comment: Immature granulocytes(IG's)percentage and absolute count will include metamyelocytes, myelocytes, and promyelocytes. Blood smears from CBCs yielding IG's will be scanned manually for concordance. If this scan disagrees with the automated IG or if promyelocytes are noted, a manual differential will be performed. Immature Gran Absolute 0.08(H) 0.00 - 0.04 x10(3)/[facility] Blood 02/23/2024 4:11 AM EDT 02/23/2024 4:36 AM EDT Narrative Resulting Agency Comment Spec In Lab Marti Garcia MD HEMATOLOGY ORDERABL ES [facility] [place] [address] * (ABNORMAL) Hemogram (02/23/2024 4:11 AM EDT) White Blood Cell 16.1(H) 4.0 - 9.5 x10(3)/[facility] Red Blood Cell 2.45(L) 4.58 - 5.54 x10(6)/[facility] Hemoglobin 6.9(L) 13.7 - 16.5 g/dL [facility] Hematocrit 21.6(L) 40.5 - 48.5 % [facility] Mean Cell Volume 88.2 82.9 - 93.1 fL [facility] Mean Cell Hemoglobin 28.2 27.5 - 32.1 pg [facility] Mean Cell Hemoglobin Concentration 31.9(L) 32.0 - 35.7 g/dL [facility] Platelet 388(H) 145 - 357 x10(3)/mc L [facility] RDW Standard Deviation 47.5(H) 36.0 - 45.0 fL [facility] RDW coefficient of variation 14.6(H) 11.4 - 13.8 % [facility] Mean Platelet Volume 10.9 7.6 - 12.9 fL [facility] NRBC% auto 0.0 % [facility] NRBC Absolute 0.000 0.000 - 0.000 x10(3)/mc L [facility] Blood 02/23/2024 4:11 AM EDT 02/23/2024 4:36 AM EDT Narrative Resulting Agency Comment Spec In Lab Marti Garcia MD HEMATOLOGY ORDERABL ES Performing Organization Address [facility] Co de Phone Number [facility] [place] [address] * (ABNORMAL) Phosphorus (02/23/2024 4:11 AM EDT) Phosphorus 5.5(H) 2.5 - 4.5 mg/dL [facility] Blood 02/23/2024 4:11 AM EDT 02/23/2024 4:36 AM EDT Narrative Resulting Agency Comment Spec In Lab Ari Renae MD CHEMISTRY ORDERABLES Performing Organization Address City/[facility]/ZIP Co de Phone Number [facility] [place] [address] * Magnesium (02/23/2024 4:11 AM EDT) Magnesium 0.83 0.69 - 1.07 mmol/L [facility] Blood 02/23/2024 4:11 AM EDT 02/23/2024 4:36 AM EDT Narrative Resulting Agency Comment Spec In Lab Ari Renae MD CHEMISTRY ORDERABLES [facility] [address] [place] [address] * (ABNORMAL) Basic Metabolic Panel (non-fasting) (02/23/2024 4:11 AM EDT) Glucose 98 65 - 199 mg/dL [facility] Comment:Diabetes: >=200 mg/d L plus symptoms Blood Urea Nitrogen 34(H) 10 - 20 mg/dL [facility] Creatinine 7.00(H) 0.80 - 1.50 mg/dL [facility] Comment:result rechecked-MG Sodium 137 135 - 145 mmol/L [facility] Potassium 4.9 3.5 - 5.0 mmol/L [facility] Comment: Please note: ??Patients with WBC >100,000 may have falsely elevated Potassium levels. ??For accurate Potassium quantification in these patients send serum separator tube (gold top) for subsequent determinations. ??Contact the Clinical Chemistry Laboratory if there are any questions. Chloride 98 98 - 107 mmol/L [facility] Carbon Dioxide 26 22 - 31 mmol/L [facility] Anion Gap 13 5 - 15 mmol/L [facility] Calcium 8.5 8.5 - 10.5 mg/dL [facility] Est Glomerular Filtration Rate 8(L) >=60 mL/min/1. 73 m?? [facility] [...] and symptoms in addition to eGFR. Blood 02/23/2024 4:11 AM EDT 02/23/2024 4:36 AM EDT Narrative Resulting Agency Comment Spec In Lab Ari Renae MD CHEMISTRY ORDERABLES Performing Organization Address City/[facility] Co de Phone Number [facility] [place] [address] * Vancomycin Level, Random (02/23/2024 4:11 AM EDT) Vancomycin, Random 26.7 mg/L [facility] Comment: This level is for determination of the patient's vancomycin pmjy-[id number]-zpq-curve (AUC) value. Contact the inpatient pharmacy for interpretation. Blood 02/23/2024 4:11 AM EDT 02/23/2024 4:36 AM EDT Ari Renae MD CHEMISTRY ORDERABLES Performing Organization Address [facility] Co de Phone Number [facility] [place] [address] * POCT Glucose (02/23/2024 4:06 AM EDT) Glucose, POC 100 65 - 199 mg/dL [facility] Comment: Supplemental ranges: <140 mg/dL before meals <180 mg/dL all other times of the day Blood 02/23/2024 4:06 AM EDT 02/23/2024 4:06 AM EDT Ari Renae MD POINT OF CARE TEST O RDERABLES Performing Organization Address City/[facility]/ZIP Co de Phone Number [facility] [place] [address] * POCT Glucose (02/23/2024 2:06 AM EDT) Glucose, POC 86 65 - 199 mg/dL [facility] Comment: Supplemental ranges: <140 mg/dL before meals <180 mg/dL all other times of the day Blood 02/23/2024 2:06 AM EDT 02/23/2024 2:06 AM EDT Ari Renae MD POINT OF CARE TEST O RDERAKEREN [facility] [place] [address] * POCT Glucose (02/23/2024 12:42 AM EDT) Glucose, POC 79 65 - 199 mg/dL [facility] Comment: Supplemental ranges: <140 mg/dL before meals <180 mg/dL all other times of the day Blood 02/23/2024 12:4 2 AM EDT 02/23/2024 12:42 AM EDT Ari Renae MD POINT OF CARE TEST O CARMELITA [facility] [place] [address] * POCT Glucose (02/22/2024 11:34 PM EDT) Glucose, POC 76 65 - 199 mg/dL [facility] Comment: Supplemental ranges: <140 mg/dL before meals <180 mg/dL all other times of the day Blood 02/22/2024 11:3 4 PM EDT 02/22/2024 11:34 PM EDT Ari Renae MD POINT OF CARE TEST O RDERAKEREN [facility] [place] [address] * POCT Glucose (02/22/2024 7:42 PM EDT) Glucose, POC 174 65 - 199 mg/dL [facility] Comment: Supplemental ranges: <140 mg/dL before meals <180 mg/dL all other times of the day Blood 02/22/2024 7:42 PM EDT 02/22/2024 7:42 PM EDT Ari Renae MD POINT OF CARE TEST O CARMELITA [facility] [place] [address] * POCT Glucose (02/22/2024 4:00 PM EDT) Glucose, POC 190 65 - 199 mg/dL [facility] Comment: Supplemental ranges: <140 mg/dL before meals <180 mg/dL all other times of the day Blood 02/22/2024 4:00 PM EDT 02/22/2024 4:00 PM EDT Ari Renae MD POINT OF CARE TEST O CARMELITA [facility] [place] [address] * POCT Glucose (02/22/2024 11:48 AM EDT) Glucose, POC 163 65 - 199 mg/dL [facility] Comment: Supplemental ranges: <140 mg/dL before meals <180 mg/dL all other times of the day Blood 02/22/2024 11:4 8 AM EDT 02/22/2024 11:48 AM EDT Ari Renae MD POINT OF CARE TEST O CARMELITA [facility] [place] [address] * POCT Glucose (02/22/2024 8:09 AM EDT) [facility] Glucose, POC 132 65 - 199 mg/dL [facility] Comment: Supplemental ranges: <140 mg/dL before meals <180 mg/dL all other times of the day Blood 02/22/2024 8:09 AM EDT 02/22/2024 8:09 AM EDT Ari Renae MD POINT OF CARE TEST O RDERABLES Performing Organization Address City/[facility]/ZIP Co de Phone Number [facility] [place] [address] * (ABNORMAL) Albumin Level (02/22/2024 4:53 AM EDT) [facility] Albumin 2.8(L) 3.2 - 5.2 g/dL [facility] Blood Venous Draw / Unknown 02/22/2024 4:53 AM EDT 02/22/2024 5:28 AM EDT Narrative Resulting Agency Comment Spec In Lab Jordan Sepulveda MD CHEMISTRY ORDERABLES Performing Organization Address [facility] Co de Phone Number [facility] [place] [address] * Scan, Peripheral Blood (02/22/2024 4:53 AM EDT) [facility] Plat estimate Increased [facility] RBC Morphology Abnormal [facility] Hypochromia Slight [facility] Blood 02/22/2024 4:53 AM EDT 02/22/2024 5:27 AM EDT Narrative Resulting Agency Comment Spec In Lab Marti Garcia MD HEMATOLOGY ORDERABL ES Performing Organization Address [facility] Co de Phone Number [facility] [place] [address] * (ABNORMAL) Differential, Automated (02/22/2024 4:53 AM EDT) [facility] Neutrophil % 79.8 % [facility] Neutrophil Absolute 13.13(H) 1.70 - 6.10 x10(3)/ L [facility] Lymph % 7.7 % [facility] Lymphocytes Abs 1.3 0.9 - 3.2 x10(3)/ L [facility] Monocyte % 9.9 % [facility] Monocyte Abs 1.6(H) 0.3 - 0.9 x10(3)/ L [facility] Eos % 1.8 % [facility] Eosinophils Abs 0.3 0.0 - 0.4 x10(3)/[facility]OR[facility] Basophil % 0.4 % [facility] Baso Absolute 0.1 0.0 - 0.1 x10(3)/[facility] Immature Gran % 0.40 % [facility] Comment: Immature granulocytes(IG's)percentage and absolute count will include metamyelocytes, myelocytes, and promyelocytes. Blood smears from CBCs yielding IG's will be scanned manually for concordance. If this scan disagrees with the automated IG or if promyelocytes are noted, a manual differential will be performed. Immature Gran Absolute 0.06(H) 0.00 - 0.04 x10(3)/[facility] Blood 02/22/2024 4:53 AM EDT 02/22/2024 5:27 AM EDT Narrative Resulting Agency Comment Spec In Lab Marti Garcia MD HEMATOLOGY ORDERABL ES [facility] [place] [address] * (ABNORMAL) Hemogram (02/22/2024 4:53 AM EDT) [facility] White Blood Cell 16.4(H) 4.0 - 9.5 x10(3)/[facility] Red Blood Cell 2.87(L) 4.58 - 5.54 x10(6)/mc L [facility] Hemoglobin 8.1(L) 13.7 - 16.5 g/dL [facility] Hematocrit 25.3(L) 40.5 - 48.5 % [facility] Mean Cell Volume 88.2 82.9 - 93.1 fL [facility] Mean Cell Hemoglobin 28.2 27.5 - 32.1 pg [facility] Mean Cell Hemoglobin Concentration 32.0 32.0 - 35.7 g/dL [facility] Platelet 434(H) 145 - 357 x10(3)/mc L [facility] RDW Standard Deviation 46.9(H) 36.0 - 45.0 [facility] RDW coefficient of variation 14.6(H) 11.4 - 13.8 % [facility] Mean Platelet Volume 11.1 7.6 - 12.9 [facility] NRBC% auto 0.0 % [facility] NRBC Absolute 0.000 0.000 - 0.000 x10(3)/mc L [facility] Blood 02/22/2024 4:53 AM EDT 02/22/2024 5:27 AM EDT Narrative Resulting Agency Comment Spec In Lab Marti Garcia MD HEMATOLOGY ORDERABL ES Performing Organization Address City/[facility] Co de Phone Number [facility] [place] [address] * Phosphorus (02/22/2024 4:53 AM EDT) Phosphorus 4.4 2.5 - 4.5 mg/dL [facility] Blood 02/22/2024 4:53 AM EDT 02/22/2024 5:27 AM EDT Narrative Resulting Agency Comment Spec In Lab Ari Renae MD CHEMISTRY ORDERABLES Performing Organization Address City/[facility]/ZIP Co de Phone Number [facility] [place] [address] * Magnesium (02/22/2024 4:53 AM EDT) Magnesium 0.81 0.69 - 1.07 mmol/L [facility] Blood 02/22/2024 4:53 AM EDT 02/22/2024 5:27 AM EDT Narrative Resulting Agency Comment Spec In Lab Ari Renae MD CHEMISTRY ORDERABLES [facility] [place] [address] * (ABNORMAL) Basic Metabolic Panel (non-fasting) (02/22/2024 4:53 AM EDT) Glucose 143 65 - 199 mg/dL [facility] Comment:Diabetes: >=200 mg/d L plus symptoms Blood Urea Nitrogen 25(H) 10 - 20 mg/dL [facility] Creatinine 5.47(H) 0.80 - 1.50 mg/dL [facility] Comment:result rechecked-hn Sodium 137 135 - 145 mmol/L [facility] Potassium 4.3 3.5 - 5.0 mmol/L [facility] Comment: Please note: ??Patients with WBC >100,000 may have falsely elevated Potassium levels. ??For accurate Potassium quantification in these patients send serum separator tube (gold top) for subsequent determinations. ??Contact the Clinical Chemistry Laboratory if there are any questions. Chloride 99 98 - 107 mmol/L [facility] Carbon Dioxide 28 22 - 31 mmol/L [facility] Anion Gap 10 5 - 15 mmol/L [facility] Calcium 8.4(L) 8.5 - 10.5 mg/dL [facility] Est Glomerular [...] and symptoms in addition to eGFR. Blood 02/22/2024 4:53 AM EDT 02/22/2024 5:27 AM EDT Narrative Resulting Agency Comment Spec In Lab Ari Renae MD CHEMISTRY ORDERABLES Performing Organization Address [facility] Co de Phone Number [facility] [place] [address] * POCT Glucose (02/22/2024 3:35 AM EDT) Glucose, POC 139 65 - 199 mg/dL [facility] Comment: Supplemental ranges: <140 mg/dL before meals <180 mg/dL all other times of the day Blood 02/22/2024 3:35 AM EDT 02/22/2024 3:35 AM EDT Ari Renae MD POINT OF CARE TEST O RDERAKEREN Performing Organization Address [facility] Co de Phone Number [facility] [place] [address] * POCT Glucose (02/21/2024 11:57 PM EDT) Glucose, POC 182 65 - 199 mg/dL [facility] Comment: Supplemental ranges: <140 mg/dL before meals <180 mg/dL all other times of the day Blood 02/21/2024 11:5 7 PM EDT 02/21/2024 11:57 PM EDT Ari Renae MD POINT OF CARE TEST O CARMELITA Performing Organization Address City/[facility]/ZIP Co de Phone Number [facility] [place] [address] * POCT Glucose (02/21/2024 8:15 PM EDT) Glucose, POC 105 65 - 199 mg/dL [facility] Comment: Supplemental ranges: <140 mg/dL before meals <180 mg/dL all other times of the day Blood 02/21/2024 8:15 PM EDT 02/21/2024 8:15 PM EDT Ari Renae MD POINT OF CARE TEST O RDERAKEREN Performing Organization Address [facility] Co de Phone Number [facility] [place] [address] * (ABNORMAL) Hemoglobin and Hematocrit, blood (02/21/2024 7:15 PM EDT) Hemoglobin 8.3(L) 13.7 - 16.5 g/dL [facility] Hematocrit 27.4(L) 40.5 - 48.5 % [facility] Blood 02/21/2024 7:15 PM EDT 02/21/2024 7:27 PM EDT Narrative Resulting Agency Comment Spec In Lab Ari Renae MD HEMATOLOGY ORDERABLE S Performing Organization Address [facility] Co de Phone Number [facility] [place] [address] * POCT Glucose (02/21/2024 6:08 PM EDT) Glucose, POC 104 65 - 199 mg/dL [facility] Comment: Supplemental ranges: <140 mg/dL before meals <180 mg/dL all other times of the day Blood 02/21/2024 6:08 PM EDT 02/21/2024 6:08 PM EDT Ari Renae MD POINT OF CARE TEST O RDERABLES [facility] [place] [address] * POCT Glucose (02/21/2024 5:17 PM EDT) Glucose, POC 100 65 - 199 mg/dL [facility] Comment: Supplemental ranges: <140 mg/dL before meals <180 mg/dL all other times of the day Blood 02/21/2024 5:17 PM EDT 02/21/2024 5:17 PM EDT Ari Renae MD POINT OF CARE TEST O CARMELITA Performing Organization Address [facility] Co de Phone Number [facility] [place] [address] * Specimen to Pathology (02/21/2024 5:05 PM EDT) AP Specimen 02/21/2024 5:05 PM EDT 02/21/2024 5:05 PM EDT Narrative [facility] - 02/21/2024 5:05 PM EDT Specimen requisition ordered. ??Separate Pathology report to follow Ari Renae MD PATHOLOGY/CYTOLOGY O CARMELITA Performing Organization Address [facility] Co de Phone Number [facility] [place] [address] * POCT Glucose (02/21/2024 3:12 PM EDT) Glucose, POC 123 65 - 199 mg/dL [facility] Comment: Supplemental ranges: <140 mg/dL before meals <180 mg/dL all other times of the day Blood 02/21/2024 3:12 PM EDT 02/21/2024 3:12 PM EDT Ari Renae MD POINT OF CARE TEST O CARMELITA Performing Organization Address City/[facility]/ZIP Co de Phone Number [facility] [place] [address] * POCT Glucose (02/21/2024 2:20 PM EDT) Glucose, POC 149 65 - 199 mg/dL [facility] Comment: Supplemental ranges: <140 mg/dL before meals <180 mg/dL all other times of the day Blood 02/21/2024 2:20 PM EDT 02/21/2024 2:20 PM EDT Ari Renae MD POINT OF CARE TEST O CARMELITA [facility] [place] [address] * POCT Glucose (02/21/2024 1:38 PM EDT) Glucose, POC 69 65 - 199 mg/dL [facility] Comment: Supplemental ranges: <140 mg/dL before meals <180 mg/dL all other times of the day Blood 02/21/2024 1:38 PM EDT 02/21/2024 1:38 PM EDT Ari Renae MD POINT OF CARE TEST O CARMELITA Performing Organization Address City/[facility]/ZIP Co de Phone Number [facility] [place] [address] * POCT Glucose (02/21/2024 12:18 PM EDT) Glucose, POC 82 65 - 199 mg/dL [facility] Comment: Supplemental ranges: <140 mg/dL before meals <180 mg/dL all other times of the day Blood 02/21/2024 12:1 8 PM EDT 02/21/2024 12:18 PM EDT Ari Renae MD POINT OF CARE TEST O CARMELITA [facility] [place] [address] * Surgical Pathology Report (02/21/2024 12:01 PM EDT) Final Diagnosis [id number] ? Location: L4WD; 0426; A The signing pathologist has (i) examined the relevant preparation(s) for the specimen(s) and (ii) rendered or confirmed the diagnosis(es). . ?Surgical Pathology DIAGNOSIS A. Left lower leg, amputation: - Status-post prior left foot amputation. - New soft tissue margin with fibrosis and focal fat necrosis; negative for significant acute inflammation. - Calcific atherosclerosis . Electronically signed by: ?Shyann Malhotra MD Verified: ??02/24/2024 17:05 ??Pathologist Performed at: ??[facility] [place], [place] [address] State Appellate Clerk: Karina Valencia MD, FCAP, ??CLIA Certificate: [id number] SPECIMEN(S) SUBMITTED A - Left Lower Leg Amputation, excision CLINICAL INFORMATION LLE wound SPECIMEN PROCESSING A - Labeled/Fixativ e: Left lower leg amputation, fresh. Quantity/Size: Single 25 8 x 9 x 5.8 cm. Tissue Description: Left, below the knee amputation. Completion BKA. Margin: Viable. Skin: Gomez-pink, soft, no grossly visible lesions. Lesions: No grossly visible lesions. Vessels: ??Posterior tibial artery: Patent. ??Anterior tibial artery: Patent. Sections/Proces sing: Email Manager sections in 3 cassettes as follows: ?A1: ??Representativ e section soft tissue margin ?A2: ??Representativ e section anterior tibial artery ?A3: ??Representativ e section posterior tibial artery ??kjs 02/24/2024 5:05 PM EDT [facility] Extremity 02/21/2024 12:0 1 PM EDT 02/21/2024 12:01 PM EDT Ari Renae MD PATHOLOGY/CYTOLOGY O RDERABLES Performing Organization Address City/[facility]/ZIP Co de Phone Number [facility] [place] [address] * POCT Glucose (02/21/2024 8:36 AM EDT) Glucose, POC 106 65 - 199 mg/dL [facility] Comment: Supplemental ranges: <140 mg/dL before meals <180 mg/dL all other times of the day Blood 02/21/2024 8:36 AM EDT 02/21/2024 8:36 AM EDT Ari Renae MD POINT OF CARE TEST O RDERAKEREN Performing Organization Address [facility] Co de Phone Number [facility] [place] [address] * Blood culture (02/21/2024 8:03 AM EDT) Blood Culture No growth at 5 days. [facility] Blood 02/21/2024 8:03 AM EDT 02/21/2024 9:09 AM EDT Comment:AU FISTULA Narrative Resulting Agency Comment Spec In Lab Fareed Bryant MD MICROBIOLOGY - BLOOD ORDERABLES Performing Organization Address [facility] Co de Phone Number [facility] [place] [address] * POCT Glucose (02/21/2024 7:41 AM EDT) Glucose, POC 108 65 - 199 mg/dL [facility] Comment: Supplemental ranges: <140 mg/dL before meals <180 mg/dL all other times of the day Blood 02/21/2024 7:41 AM EDT 02/21/2024 7:41 AM EDT Ari Renae MD POINT OF CARE TEST O RDERAKEREN [facility] [place] [address] * Blood culture (02/21/2024 6:25 AM EDT) Blood Culture No growth at 5 days. [facility] Blood STRUCTURE OF RIGHT HAND / Unknown 02/21/2024 6:25 AM EDT 02/21/2024 7:57 AM EDT Narrative Resulting Agency Comment Spec In Lab Fareed Bryant MD MICROBIOLOGY - BLOOD ORDERABLES [facility] [place] [address] * (ABNORMAL) Differential, Automated (02/21/2024 6:02 AM EDT) Pathologist [facility] Neutrophil % 66.8 % [facility] Neutrophil Absolute 8.66(H) 1.70 - 6.10 x10(3)/mc L [facility] Lymph % 19.1 % [facility] Lymphocytes Abs 2.5 0.9 - 3.2 x10(3)/mc L [facility] Monocyte % 9.7 % [facility] Monocyte Abs 1.2(H) 0.3 - 0.9 x10(3)/mc L [facility] Eos % 3.5 % [facility] Eosinophils Abs 0.4 0.0 - 0.4 x10(3)/mc L [facility] Basophil % 0.5 % [facility] Baso Absolute 0.1 0.0 - 0.1 x10(3)/mc L [facility] Immature Gran % 0.40 % [facility] Comment: Immature granulocytes(IG's)percentage and absolute count will include metamyelocytes, myelocytes, and promyelocytes. Blood smears from CBCs yielding IG's will be scanned manually for concordance. If this scan disagrees with the automated IG or if promyelocytes are noted, a manual differential will be performed. Immature Gran Absolute 0.05(H) 0.00 - 0.04 x10(3)/ L [facility] Blood 02/21/2024 6:02 AM EDT 02/21/2024 6:30 AM EDT Narrative Resulting Agency Comment Spec In Lab Marti Garcia MD HEMATOLOGY ORDERABL ES [facility] [place] [address] * (ABNORMAL) Hemogram (02/21/2024 6:02 AM EDT) White Blood Cell 13.0(H) 4.0 - 9.5 x10(3)/[facility] Red Blood Cell 2.84(L) 4.58 - 5.54 x10(6)/[facility] Hemoglobin 8.0(L) 13.7 - 16.5 g/dL [facility] Hematocrit 25.8(L) 40.5 - 48.5 % [facility] Mean Cell Volume 90.8 82.9 - 93.1 fL [facility] Mean Cell Hemoglobin 28.2 27.5 - 32.1 pg [facility] Mean Cell Hemoglobin Concentration 31.0(L) 32.0 - 35.7 g/dL [facility] Platelet 510(H) 145 - 357 x10(3)/[facility] RDW Standard Deviation 47.1(H) 36.0 - 45.0 fL [facility] RDW coefficient of variation 14.3(H) 11.4 - 13.8 % [facility] Mean Platelet Volume 11.0 7.6 - 12.9 fL [facility] NRBC% auto 0.0 % [facility] NRBC Absolute 0.000 0.000 - 0.000 x10(3)/ L [facility] Blood 02/21/2024 6:02 AM EDT 02/21/2024 6:30 AM EDT Narrative Resulting Agency Comment Spec In Lab Marti Garcia MD HEMATOLOGY ORDERABL ES Performing Organization Address [facility] Co de Phone Number [facility] [place] [address] * (ABNORMAL) Phosphorus (02/21/2024 6:02 AM EDT) Phosphorus 5.2(H) 2.5 - 4.5 mg/dL [facility] Blood 02/21/2024 6:02 AM EDT 02/21/2024 6:30 AM EDT Narrative Resulting Agency Comment Spec In Lab Ari Renae MD CHEMISTRY ORDERABLES Performing Organization Address [facility] Phone Number [facility] [place] [address] * Magnesium (02/21/2024 6:02 AM EDT) Magnesium 0.93 0.69 - 1.07 mmol/L [facility] Blood 02/21/2024 6:02 AM EDT 02/21/2024 6:30 AM EDT Narrative Resulting Agency Comment Spec In Lab Ari Renae MD CHEMISTRY ORDERABLES Performing Organization Address [facility] Co de Phone Number [facility] [place] [address] * (ABNORMAL) Basic Metabolic Panel (non-fasting) (02/21/2024 6:02 AM EDT) Glucose 96 65 - 199 mg/dL [facility] Comment:Diabetes: >=200 mg/d L plus symptoms Blood Urea Nitrogen 46(H) 10 - 20 mg/dL [facility] Creatinine 8.39(H) 0.80 - 1.50 mg/dL [facility] Comment:result rechecked-el Sodium 139 135 - 145 mmol/L [facility] Potassium 5.1(H) 3.5 - 5.0 mmol/L [facility] Comment: Please note: ??Patients with WBC >100,000 may have falsely elevated Potassium levels. ??For accurate Potassium quantification in these patients send serum separator tube (gold top) for subsequent determinations. ??Contact the Clinical Chemistry Laboratory if there are any questions. Chloride 101 98 - 107 mmol/L [facility] Carbon Dioxide 26 22 - 31 mmol/L [facility] Anion Gap 12 5 - 15 mmol/L [facility] Calcium 9.2 8.5 - 10.5 mg/dL [facility] Est Glomerular Filtration Rate 7(L) >=60 mL/min/1. 73 m?? [facility] [...] and symptoms in addition to eGFR. Blood 02/21/2024 6:02 AM EDT 02/21/2024 6:30 AM EDT Narrative Resulting Agency Comment Spec In Lab Ari Renae MD CHEMISTRY ORDERABLES [facility] [place] [address] * POCT Glucose (02/21/2024 4:29 AM EDT) Glucose, POC 91 65 - 199 mg/dL [facility] Comment: Supplemental ranges: <140 mg/dL before meals <180 mg/dL all other times of the day Blood 02/21/2024 4:29 AM EDT 02/21/2024 4:29 AM EDT Ari Renae MD POINT OF CARE TEST O RDERABLES [facility] [place] [address] * POCT Glucose (02/21/2024 12:42 AM EDT) Glucose, POC 115 65 - 199 mg/dL [facility] Comment: Supplemental ranges: <140 mg/dL before meals <180 mg/dL all other times of the day Blood 02/21/2024 12:4 2 AM EDT 02/21/2024 12:42 AM EDT Ari Renae MD POINT OF CARE TEST O ADITIERAKEREN Performing Organization Address [facility] Co de Phone Number [facility] [place] [address] * SCAN DOC: LAB (02/21/2024 12:00 AM EDT) Narrative 02/21/2024 12:00 AM EDT Ordered by an unspecified provider. Scanning Provider MEDIA MGR SCAN EXT O RDR/RSLT * (ABNORMAL) POCT Glucose (02/20/2024 7:39 PM EDT) Glucose, POC 216(H) 65 - 199 mg/dL [facility] Comment: Supplemental ranges: <140 mg/dL before meals <180 mg/dL all other times of the day Blood 02/20/2024 7:39 PM EDT 02/20/2024 7:39 PM EDT Ari Renae MD POINT OF CARE TEST O RDERABLES Performing Organization Address City/[facility]/ZIP Co de Phone Number [facility] [place] [address] * (ABNORMAL) POCT Glucose (02/20/2024 5:33 PM EDT) Glucose, POC 256(H) 65 - 199 mg/dL [facility] Comment: Supplemental ranges: <140 mg/dL before meals <180 mg/dL all other times of the day Blood 02/20/2024 5:33 PM EDT 02/20/2024 5:33 PM EDT Ari Renae MD POINT OF CARE TEST O CARMELITA Performing Organization Address City/[facility]/ZIP Co de Phone Number [facility] [place] [address] * POCT Glucose (02/20/2024 12:14 PM EDT) Glucose, POC 174 65 - 199 mg/dL [facility] Comment: Supplemental ranges: <140 mg/dL before meals <180 mg/dL all other times of the day Blood 02/20/2024 12:1 4 PM EDT 02/20/2024 12:14 PM EDT Ari Renae MD POINT OF CARE TEST O CARMELITA Performing Organization Address [facility] Co de Phone Number [facility] [place] [address] * POCT Glucose (02/20/2024 8:20 AM EDT) Glucose, POC 97 65 - 199 mg/dL [facility] Comment: Supplemental ranges: <140 mg/dL before meals <180 mg/dL all other times of the day Blood 02/20/2024 8:20 AM EDT 02/20/2024 8:20 AM EDT Ari Renae MD POINT OF CARE TEST O CARMELITA Performing Organization Address City/[facility] Co de Phone Number [facility] [place] [address] * (ABNORMAL) Differential, Automated (02/20/2024 5:21 AM EDT) Neutrophil % 67.5 % [facility] Neutrophil Absolute 7.71(H) 1.70 - 6.10 x10(3)/[facility] Lymph % 17.3 % [facility] Lymphocytes Abs 2.0 0.9 - 3.2 x10(3)/[facility] Monocyte % 10.8 % [facility] Monocyte Abs 1.2(H) 0.3 - 0.9 x10(3)/[facility] Eos % 3.5 % [facility] Eosinophils Abs 0.4 0.0 - 0.4 x10(3)/[facility] Basophil % 0.5 % [facility] Baso Absolute 0.1 0.0 - 0.1 x10(3)/[facility] Immature Gran % 0.40 % [facility] Comment: Immature granulocytes(IG's)percentage and absolute count will include metamyelocytes, myelocytes, and promyelocytes. Blood smears from CBCs yielding IG's will be scanned manually for concordance. If this scan disagrees with the automated IG or if promyelocytes are noted, a manual differential will be performed. Immature Gran Absolute 0.04 0.00 - 0.04 x10(3)/[facility] Blood 02/20/2024 5:21 AM EDT 02/20/2024 5:35 AM EDT Narrative Resulting Agency Comment Spec In Lab Marti Garcia MD HEMATOLOGY ORDERABL ES [facility] [place] [address] * (ABNORMAL) Hemogram (02/20/2024 5:21 AM EDT) White Blood Cell 11.4(H) 4.0 - 9.5 x10(3)/[facility] Red Blood Cell 2.69(L) 4.58 - 5.54 x10(6)/mc L [facility] Hemoglobin 7.6(L) 13.7 - 16.5 g/dL [facility] Hematocrit 24.6(L) 40.5 - 48.5 % [facility] Mean Cell Volume 91.4 82.9 - 93.1 fL [facility] Mean Cell Hemoglobin 28.3 27.5 - 32.1 pg [facility] Mean Cell Hemoglobin Concentration 30.9(L) 32.0 - 35.7 g/dL [facility] Platelet 448(H) 145 - 357 x10(3)/mc L [facility] RDW Standard Deviation 48.0(H) 36.0 - 45.0 [facility] RDW coefficient of variation 14.3(H) 11.4 - 13.8 % [facility] Mean Platelet Volume 11.0 7.6 - 12.9 [facility] NRBC% auto 0.0 % [facility] NRBC Absolute 0.000 0.000 - 0.000 x10(3)/mc L [facility] Blood 02/20/2024 5:21 AM EDT 02/20/2024 5:35 AM EDT Narrative Resulting Agency Comment Spec In Lab Marti Garcia MD HEMATOLOGY ORDERABL ES [facility] [place] [address] * (ABNORMAL) Basic Metabolic Panel (non-fasting) (02/20/2024 5:21 AM EDT) Glucose 94 65 - 199 mg/dL [facility] Comment:Diabetes: >=200 mg/d L plus symptoms Blood Urea Nitrogen 37(H) 10 - 20 mg/dL [facility] Creatinine 6.78(H) 0.80 - 1.50 mg/dL [facility] Comment:result rechecked-GH Sodium 139 135 - 145 mmol/L [facility] Potassium 4.2 3.5 - 5.0 mmol/L [facility] Comment: Please note: ??Patients with WBC >100,000 may have falsely elevated Potassium levels. ??For accurate Potassium quantification in these patients send serum separator tube (gold top) for subsequent determinations. ??Contact the Clinical Chemistry Laboratory if there are any questions. Chloride 101 98 - 107 mmol/L [facility] Carbon Dioxide 26 22 - 31 mmol/L [facility] Anion Gap 12 5 - 15 mmol/L [facility] Calcium 9.0 8.5 - 10.5 mg/dL [facility] Est Glomerular Filtration Rate 9(L) >=60 mL/min/1. 73 m?? [facility] [...] and symptoms in addition to eGFR. Blood 02/20/2024 5:21 AM EDT 02/20/2024 5:35 AM EDT Narrative Resulting Agency Comment Spec In Lab Ari Renae MD CHEMISTRY ORDERABLES [facility] [place] [address] * Vancomycin Level, Random (02/20/2024 5:21 AM EDT) Vancomycin, Random 32.7 mg/L [facility] Comment: This level is for determination of the patient's vancomycin axmm-sagcr-vaq-curve (AUC) value. Contact the inpatient pharmacy for interpretation. Blood 02/20/2024 5:21 AM EDT 02/20/2024 5:35 AM EDT Ari Renae MD CHEMISTRY ORDERABLES Performing Organization Address [facility]/ZIP Co de Phone Number [facility] [place] [address] * POCT Glucose (02/20/2024 3:31 AM EDT) Glucose, POC 104 65 - 199 mg/dL [facility] Comment: Supplemental ranges: <140 mg/dL before meals <180 mg/dL all other times of the day Blood 02/20/2024 3:31 AM EDT 02/20/2024 3:31 AM EDT Ari Renae MD POINT OF CARE TEST O RDERABLES Performing Organization Address [facility] Co de Phone Number [facility] [place] [address] * POCT Glucose (02/19/2024 11:35 PM EDT) Glucose, POC 156 65 - 199 mg/dL [facility] Comment: Supplemental ranges: <140 mg/dL before meals <180 mg/dL all other times of the day Blood 02/19/2024 11:3 5 PM EDT 02/19/2024 11:35 PM EDT Ari Renae MD POINT OF CARE TEST O RDERABLES Performing Organization Address [facility]/ZIP Co de Phone Number [facility] [place] [address] * (ABNORMAL) POCT Glucose (02/19/2024 7:52 PM EDT) Glucose, POC 212(H) 65 - 199 mg/dL [facility] Comment: Supplemental ranges: <140 mg/dL before meals <180 mg/dL all other times of the day Blood 02/19/2024 7:52 PM EDT 02/19/2024 7:52 PM EDT Ari Renae MD POINT OF CARE TEST O CARMELITA Performing Organization Address [facility] Co de Phone Number [facility] [place] [address] * (ABNORMAL) POCT Glucose (02/19/2024 4:00 PM EDT) Glucose, POC 211(H) 65 - 199 mg/dL [facility] Comment: Supplemental ranges: <140 mg/dL before meals <180 mg/dL all other times of the day Blood 02/19/2024 4:00 PM EDT 02/19/2024 4:00 PM EDT Ari Renae MD POINT OF CARE TEST O CARMELITA Performing Organization Address [facility] de Phone Number [facility] [place] [address] * Blood culture (02/19/2024 3:37 PM EDT) Blood Culture No growth at 5 days. [facility] Blood 02/19/2024 3:37 PM EDT 02/19/2024 4:53 PM EDT Comment:R Hand, #2 Narrative Resulting Agency Comment Spec In Lab Ruby Mcgill APRN MICROBIOLOGY - BLO OD ORDERABLES Performing Organization Address [facility] Co de Phone Number [facility] [place] [address] * (ABNORMAL) Ferritin (02/19/2024 3:05 PM EDT) Ferritin 917(H) 31 - 409 ng/mL [facility] Comment: Please note that as of 09/29/2023, the reference intervals for Ferritin have been updated. Blood Venous Draw / Unknown 02/19/2024 3:05 PM EDT 02/19/2024 3:16 PM EDT Narrative Resulting Agency Comment Spec In Lab Jordan Sepulveda MD CHEMISTRY ORDERABLES Performing Organization Address [facility] Co de Phone Number [facility] [place] [address] * Blood culture (02/19/2024 3:05 PM EDT) Blood Culture No growth at 5 days. [facility] Blood 02/19/2024 3:05 PM EDT 02/19/2024 3:45 PM EDT Comment:Jocelyn Valera, #1 Narrative Resulting Agency Comment Spec In Lab Ruby Mcgill APRN MICROBIOLOGY - BLO OD ORDERABLES Performing Organization Address [facility] de Phone Number [facility] [place] [address] * Hepatitis B Surface Antibody (02/19/2024 3:05 PM EDT) Hepatitis B Surface Antibody, Quantitative 484.0 IU/L [facility] Comment: HepB Surface Ab Quant: Unvaccinated: < 8.5 IU/L Vaccinated: >= 11.5 IU/L Hepatitis B Surface Antibody Positive [facility] Comment: Patient is considered to be immune to HBV infection. Expected Results: Vaccinated: Positive Unvaccinated: Negative Blood 02/19/2024 3:05 PM EDT 02/19/2024 3:14 PM EDT Narrative Resulting Agency Comment Spec In Lab Ruby Mcgill APRN CHEMISTRY ORDERABL ES Performing Organization Address [facility] Co de Phone Number [facility] [place] [address] * Hepatitis B Surface Antigen (02/19/2024 3:05 PM EDT) Hepatitis B Surface Antigen Negative Negative [facility] Blood 02/19/2024 3:05 PM EDT 02/19/2024 3:14 PM EDT Narrative Resulting Agency Comment Spec In Lab Ruby Mcgill APRN CHEMISTRY ORDERABL ES Performing Organization Address [facility] Co de Phone Number [facility] [place] [address] * POCT Glucose (02/19/2024 12:16 PM EDT) Glucose, POC 170 65 - 199 mg/dL [facility] Comment: Supplemental ranges: <140 mg/dL before meals <180 mg/dL all other times of the day Blood 02/19/2024 12:1 6 PM EDT 02/19/2024 12:16 PM EDT Ari Renae MD POINT OF CARE TEST O RDERABLES Performing Organization Address [facility] Co de Phone Number [facility] [place] [address] * POCT Glucose (02/19/2024 10:44 AM EDT) Glucose, POC 128 65 - 199 mg/dL [facility] Comment: Supplemental ranges: <140 mg/dL before meals <180 mg/dL all other times of the day Blood 02/19/2024 10:4 4 AM EDT 02/19/2024 10:44 AM EDT Ari Renae MD POINT OF CARE TEST O RDERABLES Performing Organization Address [facility]/ZIP Co de Phone Number [facility] [place] [address] * POCT Glucose (02/19/2024 8:28 AM EDT) Glucose, POC 77 65 - 199 mg/dL [facility] Comment: Supplemental ranges: <140 mg/dL before meals <180 mg/dL all other times of the day Blood 02/19/2024 8:28 AM EDT 02/19/2024 8:28 AM EDT Ari Renae MD POINT OF CARE TEST O RDERABLES Performing Organization Address [facility] Co de Phone Number [facility] [place] [address] * POCT Glucose (02/19/2024 8:09 AM EDT) Glucose, POC 65 65 - 199 mg/dL [facility] Comment: Supplemental ranges: <140 mg/dL before meals <180 mg/dL all other times of the day Blood 02/19/2024 8:09 AM EDT 02/19/2024 8:09 AM EDT Ari Renae MD POINT OF CARE TEST O RDERAKEREN Performing Organization Address [facility] Co de Phone Number [facility] [place] [address] * (ABNORMAL) POCT Glucose (02/19/2024 7:48 AM EDT) Glucose, POC 64(L) 65 - 199 mg/dL [facility] Comment: Supplemental ranges: <140 mg/dL before meals <180 mg/dL all other times of the day Blood 02/19/2024 7:48 AM EDT 02/19/2024 7:48 AM EDT Ari Renae MD POINT OF CARE TEST O RDERABLES Performing Organization Address [facility]/ZIP Co de Phone Number [facility] [place] [address] * (ABNORMAL) Differential, Automated (02/19/2024 5:28 AM EDT) Neutrophil % 70.4 % [facility] Neutrophil Absolute 9.08(H) 1.70 - 6.10 x10(3)/mc L [facility] Lymph % 14.4 % [facility] Lymphocytes Abs 1.9 0.9 - 3.2 x10(3)/mc L [facility] Monocyte % 11.1 % [facility] Monocyte Abs 1.4(H) 0.3 - 0.9 x10(3)/[facility] LABOR[facility] Eos % 3.0 % [facility] Eosinophils Abs 0.4 0.0 - 0.4 x10(3)/[facility] LABOR[facility]ORY Basophil % 0.6 % [facility] Baso Absolute 0.1 0.0 - 0.1 x10(3)/[facility] LABORATORY Immature Gran % 0.50 % [facility] Comment: Immature granulocytes(IG's)percentage and absolute count will include metamyelocytes, myelocytes, and promyelocytes. Blood smears from CBCs yielding IG's will be scanned manually for concordance. If this scan disagrees with the automated IG or if promyelocytes are noted, a manual differential will be performed. Immature Gran Absolute 0.07(H) 0.00 - 0.04 x10(3)/[facility] LABORATORY Blood 02/19/2024 5:28 AM EDT 02/19/2024 5:39 AM EDT Narrative Resulting Agency Comment Spec In Lab Marti Garcia MD HEMATOLOGY ORDERABL ES [facility] [place] [address] * (ABNORMAL) Hemogram (02/19/2024 5:28 AM EDT) White Blood Cell 12.9(H) 4.0 - 9.5 x10(3)/[facility] LABORATORY Red Blood Cell 2.82(L) 4.58 - 5.54 x10(6)/[facility]ORY Hemoglobin 8.0(L) 13.7 - 16.5 g/dL [facility] Hematocrit 25.8(L) 40.5 - 48.5 % [facility] Mean Cell Volume 91.5 82.9 - 93.1 fL [facility] Mean Cell Hemoglobin 28.4 27.5 - 32.1 pg [facility] Mean Cell Hemoglobin Concentration 31.0(L) 32.0 - 35.7 g/dL [facility] Platelet 371(H) 145 - 357 x10(3)/mc L [facility] RDW Standard Deviation 49.1(H) 36.0 - 45.0 fL [facility] RDW coefficient of variation 14.5(H) 11.4 - 13.8 % [facility] Mean Platelet Volume 11.2 7.6 - 12.9 fL [facility] NRBC% auto 0.0 % [facility] NRBC Absolute 0.000 0.000 - 0.000 x10(3)/mc L [facility] Blood 02/19/2024 5:28 AM EDT 02/19/2024 5:39 AM EDT Narrative Resulting Agency Comment Spec In Lab Marti Garcia MD HEMATOLOGY ORDERABL ES [facility] [place] [address] * (ABNORMAL) Basic Metabolic Panel (non-fasting) (02/19/2024 5:28 AM EDT) Glucose 164 65 - 199 mg/dL [facility] Comment:Diabetes: >=200 mg/d L plus symptoms Blood Urea Nitrogen 27(H) 10 - 20 mg/dL [facility] Creatinine 4.81(H) 0.80 - 1.50 mg/dL [facility] Comment:result rechecked-KS Sodium 137 135 - 145 mmol/L [facility] Comment:result rechecked-KS Potassium 3.8 3.5 - 5.0 mmol/L [facility] Comment: result rechecked-KS Please note: ??Patients with WBC >100,000 may have falsely elevated Potassium levels. ??For accurate Potassium quantification in these patients send serum separator tube (gold top) for subsequent determinations. ??Contact the Clinical Chemistry Laboratory if there are any questions. Chloride 100 98 - 107 mmol/L [facility] Comment:result rechecked-KS Carbon Dioxide 23 22 - 31 mmol/L [facility] Anion Gap 14 5 - 15 mmol/L [facility] Calcium 8.8 8.5 - 10.5 mg/dL [facility] Est Glomerular Filtration Rate 13(L) >=60 mL/min/1. 73 m?? [facility] [...] and symptoms in addition to eGFR. Blood 02/19/2024 5:28 AM EDT 02/19/2024 5:39 AM EDT Narrative Resulting Agency Comment Spec In Lab Ari Renae MD CHEMISTRY ORDERABLES Performing Organization Address City/[facility]/ZIP Co de Phone Number [facility] [place] [address] * POCT Glucose (02/19/2024 4:32 AM EDT) Glucose, POC 183 65 - 199 mg/dL [facility] Comment: Supplemental ranges: <140 mg/dL before meals <180 mg/dL all other times of the day Blood 02/19/2024 4:32 AM EDT 02/19/2024 4:32 AM EDT Ari Renae MD POINT OF CARE TEST O RDERABLES [facility] [place] [address] * (ABNORMAL) POCT Glucose (02/19/2024 2:17 AM EDT) Glucose, POC 252(H) 65 - 199 mg/dL [facility] Comment: Supplemental ranges: <140 mg/dL before meals <180 mg/dL all other times of the day Blood 02/19/2024 2:17 AM EDT 02/19/2024 2:17 AM EDT Ari Renae MD POINT OF CARE TEST O RDERAKEREN Performing Organization Address [facility]/ZIP Co de Phone Number [facility] [place] [address] * (ABNORMAL) POCT Glucose (02/19/2024 12:29 AM EDT) Glucose, POC 278(H) 65 - 199 mg/dL [facility] Comment: Supplemental ranges: <140 mg/dL before meals <180 mg/dL all other times of the day Blood 02/19/2024 12:2 9 AM EDT 02/19/2024 12:29 AM EDT Ari Renae MD POINT OF CARE TEST O CARMELITA Performing Organization Address City/[facility]/ZIP Co de Phone Number [facility] [place] [address] * MRSA PCR Screen ([facility]) (02/18/2024 11:02 PM EDT) MRSA PCR Negative Negative [facility] MRSA (Interp) Methicillin-resist ant Staphylococcus aureus (MRSA) is NOT DETECTED The MRSA target DNA sequences (mec and SCC) were not detected within the acceptable ranges using the Xpert MRSA NxG on the GeneXpert Dx System ([employer]). This suggests the absence of MRSA in the patient specimen submitted for testing. This test is cleared by the U.S. Food and Drug Administration for clinical use and its performance characteristics have been verified by the [facility] at [facility]. This result does not rule out the presence of any other organisms. Rare false negative results may occur if MRSA is present at low concentrations with much higher concentrations of other organisms including MRSE or S. aureus with an empty SCC cassette. [facility] Comment: [VERIFIED DATE]02.19.24 Verified By:Shaina Goff (Electronic Signature) Nasopharyngeal Swab 02/18/20 11:02 PM EDT 02/19/2024 1:56 PM EDT Comment:Specimen Type->Nasop haryngeal Swab Narrative Resulting Agency Comment Spec In Lab Ari Renae MD MOLECULAR ORDERABLES Performing Organization Address [facility] de Phone Number [facility] [place] [address] * (ABNORMAL) POCT Glucose (02/18/2024 8:07 PM EDT) [facility] Glucose, POC 221(H) 65 - 199 mg/dL [facility] Comment: Supplemental ranges: <140 mg/dL before meals <180 mg/dL all other times of the day Blood 02/18/2024 8:07 PM EDT 02/18/2024 8:07 PM EDT Ari Renae MD POINT OF CARE TEST O RDERABLES Performing Organization Address [facility] de Phone Number [facility] [place] [address] * Specimen to Pathology (02/18/2024 7:12 PM EDT) AP Specimen 02/18/2024 7:12 PM EDT 02/18/2024 7:12 PM EDT Narrative [facility] - 02/18/2024 7:12 PM EDT Specimen requisition ordered. ??Separate Pathology report to follow Ari Renae MD PATHOLOGY/CYTOLOGY O RDERABLES [facility] [place] [id number] * Surgical Pathology Report (02/18/2024 7:02 PM EDT) Final Diagnosis [id number] ? Location: L4WD; 0426; A The signing pathologist has (i) examined the relevant preparation(s) for the specimen(s) and (ii) rendered or confirmed the diagnosis(es). . ?Surgical Pathology DIAGNOSIS A. Left foot, amputation: - Cutaneous ulceration of the heel with acute inflammation, necrosis, and bacterial forms. 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 - Calcific atherosclerosis. - Margins appear viable and uninflamed. - Bone resorptive changes (see Discussion). Electronically signed by: ?Shyann Malhotra MD Verified: ??02/24/2024 17:03 ??Pathologist Performed at: ??-[facility] [place]ology, [place] [address] State Appellate Clerk: Karina Valencia MD, FCAP, ??CLIA Certificate: [id number] DISCUSSION The specimen shows areas of subperiosteal bone resorption as well as scattered foci of bone resorption within the center of bony trabeculae. These histologic features raise the possibility of changes related to hyperparathyroidi sm. Correlation with additional clinical and laboratory findings is recommended. SPECIMEN(S) SUBMITTED A - Left Foot, excision (1) CLINICAL INFORMATION LLE wound insert SPECIMEN PROCESSING A - Labeled/Fixative: Left foot, fresh. Quantity/Size: Single 27.8 x 10.5 x 6 cm. Tissue Description: Left, below the knee guillotine through the ankle region/distal tibia and fibula. Margin: Viable. Skin: Uninvolved skin is gomez-pink and soft. Lesions: There is a 12 x 7.5 cm ulceration extending from the lateral midfoot to the posterior heel the tissue underlying this ulceration is gomez-brown soft and friable. Bone: Proximal bone margin is pink to yellow and trabecular. Vessels: Sections/Processi ng: Blocks submitted for decalcification: A4-A5. Email Manager sections in 5 cassettes as follows: ?A1: ??Soft tissue margin nearest to the lesion en face ?A2: ??Email Manager section of the lesion located at the lateral heel ?A3: ??Email Manager section of the lesion at the posterior heel ?A4: ??Email Manager sections of the involved calcaneus ?A5: ??Email Manager section proximal bone margin en face ??kjs 02/24/2024 5:03 PM EDT [facility] Extremity 02/18/2024 7:02 PM EDT 02/18/2024 7:02 PM EDT Extremity 02/18/2024 7:02 PM EDT 02/18/2024 7:02 PM EDT Ari Renae MD PATHOLOGY/CYTOLOGY O RDERABLES Performing Organization Address City/State/[facility] Co de Phone Number [facility] [place] [phone] * Request For 2nd Read CT Lower Extremity (02/18/2024 5:13 PM EDT) WORKSTATION ID [id number] RAD Anatomical Region Laterality Modality Hip, Leg, Knee, Thigh, Ankle, Foot SO Impressions 02/18/2024 7:42 PM EDT 1. ??Large soft tissue wound/defect that exposes the plantar surface of the posterior calcaneal tuberosity. This finding in addition to a few small bubbles of intraosseous gas in the plantar surface of the calcaneus is concerning for contaminated bone and acute calcaneal osteomyelitis. 2. ??Bubbles of tracking soft tissue gas in the plantar lateral mid and hindfoot which may be the sequela of recent debridement or alternatively gas-forming infection. 3. ??Diffuse subcutaneous edema. Correlate clinically with evidence of cellulitis. Thank you for letting us participate in the care of this patient. ??If you are a health care provider and have any questions regarding this report, please contact the number below. ??For patients who have questions please contact the health reservoir caretaker that requested your imaging first. ? Electronically signed by: Romeo Saunders MD, [facility] ??([phone]), at 02/18/2024 7:42 PM Narrative 02/18/2024 7:42 PM EDT EXAMINATION: REQUEST FOR 2ND READ CT LOWER EXTREMITY CLINICAL HISTORY: concern for osteo; Sending Institution [facility]; Date of exam [id number]; I believe a reinterpretation of this exam may alter care of Patient. Yes TECHNIQUE: Axial, coronal, and sagittal reconstructed images of a noncontrast CT of the left lower leg and foot performed 02/17/2024 at [facility] was submitted for reinterpretation on 02/18/2024. The outside report is available for review at time of this interpretation. COMPARISON: CT left foot 12/19/2023 performed at [facility] FINDINGS: There is a deep soft tissue wound that appears to expose the plantar surface of the posterior calcaneal tuberosity. While no appreciable cortical erosive/destructive change or periostitis is identified, the presence of exposed bone as well as a few bubbles of intraosseous gas in the plantar surface of the calcaneus is highly suspicious for acute osteomyelitis. There are additional bubbles of tracking soft tissue gas in the in the plantar soft tissues extending laterally and anteriorly to the level the base of fifth metatarsal consistent with either gas-forming infection of the sequela of recent surgery/debridement. No loculated appearing fluid collection is identified. No ankle joint effusion. No evidence of tenosynovitis. Mild osteoarthritic changes at the first TMT joint. Mild deformity of the anterior calcaneal process consistent with remote healed injury. Diffuse subcutaneous edema. Atherosclerotic vascular calcifications. Diffuse muscle atrophy. Procedure Note Romeo Saunders MD - 04/26/2024 EXAMINATION: REQUEST FOR 2ND READ CT LOWER EXTREMITY CLINICAL HISTORY: concern for osteo; Sending Institution [facility]; Date ofexam [id number]; I believe a reinterpretation of this exam may alter care ofPatient. Yes TECHNIQUE: Axial, coronal, and sagittal reconstructed images of a noncontrast CT ofthe left lower leg and foot performed 02/17/2024 at [facility] was submitted for reinterpretation on 02/18/2024. The outsidereport is available for review at time of this interpretation. COMPARISON: CT left foot 12/19/2023 performed at [facility] FINDINGS: There is a deep soft tissue wound that appears to expose the plantarsurface of the posterior calcaneal tuberosity. While no appreciable cortical erosive/destructive change or periostitis is identified, the presence ofexposed bone as well as a few bubbles of intraosseous gas in the plantar surfaceof the calcaneus is highly suspicious for acute osteomyelitis. There areadditional bubbles of tracking soft tissue gas in the in the plantar soft tissuesextending laterally and anteriorly to the level the base of fifth metatarsalconsistent with either gas-forming infection of the sequela of recentsurgery/debridement. No loculated appearing fluid collection is identified. No ankle jointeffusion. No evidence of tenosynovitis. Mild osteoarthritic changes at the first TMT joint. Mild deformity ofthe anterior calcaneal process consistent with remote healed injury. Diffuse subcutaneous edema. Atherosclerotic vascular calcifications. Diffusemuscle atrophy. IMPRESSION 1. Large soft tissue wound/defect that exposes the plantar surface ofthe posterior calcaneal tuberosity. This finding in addition to a few smallbubbles of intraosseous gas in the plantar surface of the calcaneus is concerningfor contaminated bone and acute calcaneal osteomyelitis. 2. Bubbles of tracking soft tissue gas in the plantar lateral mid andhindfoot which may be the sequela of recent debridement or alternativelygas-forming infection. 3. Diffuse subcutaneous edema. Correlate clinically with evidence of cellulitis. Thank you for letting us participate in the care of this patient. If youare a health care provider and have any questions regarding this report,please contact the number below. For patients who have questions please contactthe health reservoir caretaker that requested your imaging first. Electronically signed by: Romeo Saunders MD, [facility]([phone]), at 02/18/2024 7:42 PM Maria A Mallory DATE NIGHT SITTER IMG OUTSIDE INTER PRETATION ORDERABLES * XR Foot Min 3 views Bilat (Generic) (02/18/2024 4:39 PM EDT) Distill Signature WORKSTATION ID [id number] [facility] Anatomical Region Laterality Modality Foot Bilateral Digital Radiogra phy Impressions 02/18/2024 4:51 PM EDT 1. ??No radiographic evidence of advanced acute osteomyelitis. 2. ??Large soft tissue wound along the plantar aspect of the left heel which appears to expose the posterior calcaneal tuberosity. Correlate with physical exam. No appreciable osseous destructive change. 3. ??Small amount of soft tissue gas tracking distally along the lateral aspect of the calcaneus similar to CT for 13/03/2024. Findings may be due to recent debridement versus gas-forming infection. Correlate with surgical history/timing. Thank you for letting us participate in the care of this patient. ??If you are a health care provider and have any questions regarding this report, please contact the number below. ??For patients who have questions please contact the health reservoir caretaker that requested your imaging first. ? Electronically signed by: Romeo Saunders MD, [facility] ??([phone]), at 02/18/2024 4:51 PM Narrative 02/18/2024 4:51 PM EDT EXAMINATION: XR FOOT MIN 3 VIEWS BILAT (GENERIC) CLINICAL HISTORY: Bilateral wound on heels looking for signs of osteo TECHNIQUE: 3 views BILATERAL feet COMPARISON: Left foot radiographs 12/17/2023 and left lower extremity CT 12 02/17/2024 FINDINGS: Right foot: No fracture or dislocation. [...] the first TMT joint. Atherosclerotic vascular calcifications. Procedure Note Romeo Saunders MD - 02/18/2024 EXAMINATION: XR FOOT MIN 3 VIEWS BILAT (GENERIC) CLINICAL HISTORY: Bilateral wound on heels looking for signs of osteo TECHNIQUE: 3 views BILATERAL feet COMPARISON: Left foot radiographs 12/17/2023 and left lower extremity CT 12 02/17/2024 FINDINGS: Right foot: No fracture or dislocation. No osseous destructive change or periostitis. No tracking soft tissue gas. Mild soft tissue irregularity overlying the heel presumably the patient's known ulcer. Small marginalcysts or mild marginal erosive changes at the great toe IP joint. Joint spacesare maintained. Atherosclerotic vascular calcifications. Mild dorsal softtissue swelling. Posterior calcaneal spur. Left foot: No acute fracture or dislocation. Large soft tissue woundthat appears to expose the plantar aspect of the posterior calcanealtuberosity. No osseous destructive change or periostitis. There is a small amount ofsoft tissue gas in the adjacent plantar soft tissues extending distally andlaterally corresponding to findings on the recent CT 02/17/2024. Mild first MTPjoint osteoarthritis. Mild degenerative change at the first TMT joint.Atherosclerotic vascular calcifications. IMPRESSION 1. No radiographic evidence of advanced acute osteomyelitis. 2. Large soft tissue wound along the plantar aspect of the left heelwhich appears to expose the posterior calcaneal tuberosity. Correlate withphysical exam. No appreciable osseous destructive change. 3. Small amount of soft tissue gas tracking distally along the lateralaspect of the calcaneus similar to CT for 13/03/2024. Findings may be due torecent debridement versus gas-forming infection. Correlate with surgical history/timing. Thank you for letting us participate in the care of this patient. If youare a health care provider and have any questions regarding this report,please contact the number below. For patients who have questions please contactthe health reservoir caretaker that requested your imaging first. Electronically signed by: Romeo Saunders MD, [facility]([phone]), at 02/18/2024 4:51 PM Macario Thomas MD IMG DX ORDERABLES * MELLY, legs, multiple levels (02/18/2024 3:31 PM EDT) VB Text Report Department: Vascular Surgery Lab Patient: [id number] (GERSON BRUNER) CPT: 66818 Referring Physician: SEA MAIN ?? Phone: Indications: bilateral heel wounds, LT worse than RT, ? peripheral perfusion Diabetes mellitus: Yes Findings: Right ?Pressure (mm Hg) ??Waveform ?TBI ?? Brachial Artery ?190 ? Dorsalis Pedis (Ankle) Artery ?>240 ?Piatt-Biphasic ? Posterior Tibial (Ankle) Artery ??>240 ?Monophasic ? Great Toe ?110 ?0.58 ?? Left ? Pressure (mm Hg) ?? MELLY ??Waveform ? TBI ?? Brachial Artery ?AVF ? Dorsalis Pedis (Ankle) Artery ?>240 ?Monophasic ? Posterior Tibial (Ankle) Artery ??95 ?0.50 ??Monophasic ? Great Toe ?85 ?0.45 ?? Interpretation: RIGHT: Mild lower extremity arterial occlusive [...] ABIs with change from previous value: Date ?RIGHT DP ?? RIGHT PT ?? RT GR TOE ??RT Sec TOE ??1.05 ? 1.06 ? 0.66 ? ---- Current ? ---- ? ---- ? 0.58(-.08) ---- Date ?LEFT DP ?LEFT PT ?LT GR TOE LT Sec TOE ??1.13 ? 1.06 ? 0.69 ? ---- Current ? ---- ? 0.50(-.56) 0.45(-.24) ---- Electronically Signed by: ARI RENAE MD on 2024-02-22 08:06:55 AM VASCUBASE VB Text Report End of Report [facility]AS[facility] 02/18/2024 3:31 PM EDT [place] MD VASCULAR ORDERABLES VASCU[facility] * (ABNORMAL) BLOOD GAS 2 VENOUS (02/18/2024 3:16 PM EDT) pH, Venous 7.39 7.32 - 7.42 [facility] PCO2, Venous 48 41 - 51 mmHg [facility] PO2, Venous 22(L) 25 - 40 mmHg [facility] Bicarbonate, Venous 28.3 mmol/L [facility] Base Excess, Venous 3.3 mmol/L [facility] Hgb Blood Gas 10.4(L) 13.7 - 16.5 g/dL [facility] Oxyhemoglobin, Venous 35.5 % [facility] Carboxyhemoglob in, Venous 6.9 % [facility] Comment: Nonsmokers: 0.5-1.5% COHB Smokers: Variable, but usually less than 10% Toxic: 20-30% COHB Lethal: Greater than 60% COHB Methemoglobin, Venous 0.2 <=1.5 % [facility] Na Whole Blood 133(L) 135 - 145 mmol/L [facility] K Whole Blood 3.7 3.5 - 5.0 mmol/L [facility] Comment: Please note: Patients with WBC >100,000 may have falsely elevated Potassium levels. Contact the Clinical Chemistry Laboratory if there are any questions. ICa Whole Blood 1.17 1.15 - 1.33 mmol/L [facility] Comment: Note: ??Total bilirubin higher than 20 mg/dL may lead to falsely low ionized calcium. CL Whole Blood 95(L) 98 - 107 mmol/L [facility] Gluc Whole Bld 207(H) 65 - 199 mg/dL [facility] Comment:Diabetes: >=200 mg/d L plus symptoms Lactate WB 1.0 0.5 - 2.2 mmol/L [facility] Blood Gas Source Venous [facility] Blood 02/18/2024 3:16 PM EDT 02/18/2024 3:[address] Rei Gasca MD POINT OF CARE TEST O RDERABLES [facility] [place] [address] * Type and screen ([facility]) (02/18/2024 3:07 PM EDT) [facility] Type A POSITIVE [facility] Patient BB History Found [facility] Expires at [id number] on: 02-21-2024 [facility] Ab Screen Interp Negative [facility] Blood 02/18/2024 3:07 PM EDT 02/18/2024 3:00 PM EDT Narrative [facility] - 02/18/2024 3:00 PM EDT This Type and Screen result is only valid at the [facility] Resulting Agency Comment Spec In Lab Macario Thomas MD BLOOD BANK LAB ORDER FRANSISCO [facility] [place] [address] * [facility] Recheck Status (02/18/2024 3:00 PM EDT) [facility] Type Recheck Completed [facility] Blood 02/18/2024 3:00 PM EDT 02/18/2024 3:32 PM EDT Narrative Resulting Agency Comment Spec In Lab The[facility] ORDER FRANSISCO Performing Organization Address [facility]/ZIP Co de Phone Number [facility] [place] [address] * Blood culture (02/18/2024 3:00 PM EDT) Pathologist [facility] Blood Culture No growth at 5 days. [facility] Blood 02/18/2024 3:00 PM EDT 02/18/2024 4:05 PM EDT Comment:R ac Narrative Resulting Agency Comment Spec In Lab Maria A Mallory APRN MICROBIOLOGY - BL OOD ORDERABLES Performing Organization Address [facility] Co de Phone Number [facility] [place] [address] * EKG 12 Lead (02/18/2024 2:42 PM EDT) Ventricular rate 73 BPM MUSE SYSTEM Atrial Rate 73 BPM MUSE SYSTEM P-R Interval 130 ms MUSE SYSTEM QRS Duration 90 ms MUSE SYSTEM Q-T Interval 424 ms MUSE SYSTEM QTC Calculated (Bezet) 467 ms MUSE SYSTEM Calculated P [place] 41 degrees MUSE SYSTEM Calculated R [place] 31 degrees MUSE SYSTEM Calculated T [place] 49 degrees MUSE SYSTEM INTERPRETATION Normal sinus rhythm Normal ECG When compared with ECG of 01-SEP-2018 14:08, Nonspecific T wave abnormality now evident in Lateral leads Confirmed by MD Samia, Blanca ([id number]) on 02/21/2024 6:28:52 AM MUSE SYSTEM 02/18/2024 2:42 PM EDT 02/21/2024 6:28 AM EDT Maria A Mallory APRN ECG ORDERABLES Performing Organization Address [facility] Co de Phone Number MUSE SYSTEM * (ABNORMAL) Sedimentation rate (02/18/2024 2:15 PM EDT) Sedimentation Rate Automated 108(H) 2 - 37 mm/hr [facility] Comment: Effective October 04, 2019 new capillary photometric technology has resulted in a change in reference ranges. It is recommended that each ESR result be reviewed with its own age appropriate reference range. Blood Venous Draw / Unknown 02/18/2024 2:15 PM EDT 02/18/2024 2:37 PM EDT Narrative Resulting Agency Comment Spec In Lab Thee [facility]MER HEMATOLOGY ORDERABLE S Performing Organization Address [facility]/ZIP Co de Phone Number [facility] [place] [address] * (ABNORMAL) CRP, acute inflammation (02/18/2024 2:15 PM EDT) Pathologist [facility] C-Reactive Protein 148.6(H) <=4.9 mg/L [facility] Blood Venous Draw / Unknown 02/18/2024 2:15 PM EDT 02/18/2024 2:44 PM EDT Narrative Resulting Agency Comment Spec In Lab Thee PALMER CHEMISTRY ORDERABLES Performing Organization Address [facility] Co de Phone Number [facility] [place] [address] * Gold Tube HOLD (02/18/2024 2:15 PM EDT) Pathologist [facility] Gold Hold Sample in lab. [facility] Blood Venous Draw / Unknown 02/18/2024 2:15 PM EDT 02/18/2024 2:37 PM EDT Maria A Mallory APRN CHEMISTRY ORDERAB LES Performing Organization Address [facility] Co de Phone Number [facility] [place] [address] * (ABNORMAL) Differential, Automated (02/18/2024 2:15 PM EDT) Neutrophil % 76.1 % [facility] Neutrophil Absolute 10.53(H) 1.70 - 6.10 x10(3)/mc L [facility] Lymph % 11.7 % [facility] Lymphocytes Abs 1.6 0.9 - 3.2 x10(3)/[facility] LABORATORY Monocyte % 9.4 % [facility] Monocyte Abs 1.3(H) 0.3 - 0.9 x10(3)/[facility] LABORATORY Eos % 2.0 % [facility] Eosinophils Abs 0.3 0.0 - 0.4 x10(3)/[facility] LABORATORY Basophil % 0.4 % [facility] Baso Absolute 0.0 0.0 - 0.1 x10(3)/[facility] LABORATORY Immature Gran % 0.40 % [facility] Comment: Immature granulocytes(IG's)percentage and absolute count will include metamyelocytes, myelocytes, and promyelocytes. Blood smears from CBCs yielding IG's will be scanned manually for concordance. If this scan disagrees with the automated IG or if promyelocytes are noted, a manual differential will be performed. Immature Gran Absolute 0.06(H) 0.00 - 0.04 x10(3)/[facility] LABORATORY Blood 02/18/2024 2:15 PM EDT 02/18/2024 2:37 PM EDT Narrative Resulting Agency Comment Spec In Lab Maria A Mallory APRN HEMATOLOGY ORDERA BLES [facility] [place] [address] * (ABNORMAL) Hemogram (02/18/2024 2:15 PM EDT) White Blood Cell 13.8(H) 4.0 - 9.5 x10(3)/[facility] LABORATORY Red Blood Cell 2.52(L) 4.58 - 5.54 x10(6)/[facility] LABORATORY Hemoglobin 7.2(L) 13.7 - 16.5 g/dL [facility] Hematocrit 22.1(L) 40.5 - 48.5 % [facility] Mean Cell Volume 87.7 82.9 - 93.1 fL [facility] Mean Cell Hemoglobin 28.6 27.5 - 32.1 pg [facility] Mean Cell Hemoglobin Concentration 32.6 32.0 - 35.7 g/dL [facility] Platelet 440(H) 145 - 357 x10(3)/mc L [facility] RDW Standard Deviation 44.5 36.0 - 45.0 [facility] LABORATORY RDW coefficient of variation 13.8 11.4 - 13.8 % [facility] Mean Platelet Volume 10.9 7.6 - 12.9 [facility] LABORATORY NRBC% auto 0.0 % [facility] NRBC Absolute 0.000 0.000 - 0.000 x10(3)/mc L [facility] Blood 02/18/2024 2:15 PM EDT 02/18/2024 2:37 PM EDT Narrative Resulting Agency Comment Spec In Lab Maria A Mallory APRN HEMATOLOGY ORDERA BLES Performing Organization Address City/State/[facility] Co de Phone Number [facility] [place] [address] * APTT (02/18/2024 2:15 PM EDT) Partial Thromboplastin Time 32 25 - 37 sec [facility] Comment: The PTT is NOT appropriate for heparin monitoring. Use the Anti-Xa level for heparin monitoring (HEP UFH) or LMWH monitoring (HEP LMW). A PTT less than 37 seconds generally indicates adequate hemostasis. Blood 02/18/2024 2:15 PM EDT 02/18/2024 2:37 PM EDT Narrative Resulting Agency Comment Spec In Lab Maria A Mallory APRN HEMATOLOGY ORDERA BLES Performing Organization Address City/[facility]/ZIP Co de Phone Number [facility] [place] [address] * (ABNORMAL) Prothrombin Time (02/18/2024 2:15 PM EDT) Prothrombin Time 13.2(H) 9.4 - 12.5 sec [facility] International Normalization Ratio 1.2 [facility] Comment: An INR <2.0 indicates [...] be appropriate depending on clinical circumstances. Blood 02/18/2024 2:15 PM EDT 02/18/2024 2:37 PM EDT Narrative Resulting Agency Comment Spec In Lab Maria A Mallory APRN HEMATOLOGY ORDERA BLES Performing Organization Address [facility]/ZIP Co de Phone Number [facility] [place] [address] * Blood culture (02/18/2024 2:15 PM EDT) [facility] Blood Culture No growth at 5 days. [facility] Blood ANTECUBITAL REGION STRUCTURE / Unknown 02/18/2024 2:15 PM EDT 02/18/2024 2:46 PM EDT Narrative Resulting Agency Comment Spec In Lab Maria A Mallory APRN MICROBIOLOGY - BL OOD ORDERABLES Performing Organization Address City/[facility]/ZIP Co de Phone Number [facility] [place] [address] * (ABNORMAL) Basic Metabolic Panel (non-fasting) (02/18/2024 2:15 PM EDT) Glucose 211(H) 65 - 199 mg/dL [facility] Comment:Diabetes: >=200 mg/d L plus symptoms Blood Urea Nitrogen 18 10 - 20 mg/dL [facility] Creatinine 3.48(H) 0.80 - 1.50 mg/dL [facility] Sodium 135 135 - 145 mmol/L [facility] Potassium 3.7 3.5 - 5.0 mmol/L [facility] Comment: Please note: ??Patients with WBC >100,000 may have falsely elevated Potassium levels. ??For accurate Potassium quantification in these patients send serum separator tube (gold top) for subsequent determinations. ??Contact the Clinical Chemistry Laboratory if there are any questions. Chloride 97(L) 98 - 107 mmol/L [facility] Carbon Dioxide 27 22 - 31 mmol/L [facility] Anion Gap 11 5 - 15 mmol/L [facility] Calcium 8.6 8.5 - 10.5 mg/dL [facility] Est Glomerular Filtration Rate 20(L) >=60 mL/min/1. 73 m?? [facility] [...] and symptoms in addition to eGFR. Blood 02/18/2024 2:15 PM EDT 02/18/2024 2:37 PM EDT Narrative Resulting Agency Comment Spec In Lab Maria A Mallory DATE NIGHT SITTER CHEMISTRY ORDERAB LES [facility] [place] [address] documented in this encounter Visit Diagnoses Diagnosis Non-healing open wound of heel- Primary Open wound of foot except toe(s) alone, complicated Wound infection Posttraumatic wound infection not elsewhere classified CKD (chronic kidney disease) stage 5, GFR less than 15 ml/min Chronic kidney disease, Stage V Postoperative anemia due to acute blood loss Acute posthemorrhagic anemia documented in this encounter Admitting Diagnoses Diagnosis Non-healing open wound of heel Open wound of foot except toe(s) alone, complicated documented in this encounter Administered Medications Inactive Administered Medications - up to 3 most recent administrations Medication Order MAR Action Action Date Dose Rate Site acetaminophen (Tylenol) tablet 650 mg 650 mg, Oral, EVERY 6 HOURS SCHEDULED, First dose on Wed02/18/24 at 2030, Until Discontinued, Administer for pain or temperature greater than or equal to 38.2 degrees Celsius. Maximum daily dose of acetaminophen from all sources not to exceed 4,000 mg. When ordered for pain, acetaminophen should be given even when other ordered pain medications are indicated., Routine Given 02/22/2024 5:55 AM EDT 650 mg Given 02/22/2024 12:01 AM EDT 650 mg Given 02/21/2024 1:55 PM EDT 650 mg acetaminophen (Tylenol) tablet 975 mg 975 mg, Oral, EVERY 6 HOURS SCHEDULED, First dose (after last modification) on Wed02/22/24 at 1200, Until Discontinued, Administer for pain or temperature greater than or equal to 38.2 degrees Celsius. Maximum daily dose of acetaminophen from all sources not to exceed 4,000 mg. When ordered for pain, acetaminophen should be given even when other ordered pain medications are indicated., Routine Given 02/25/2024 12:15 PM EDT 975 mg Given 02/25/2024 5:39 AM EDT 975 mg Given 02/24/2024 11:37 PM EDT 975 mg amLODIPine (Norvasc) tablet 10 mg 10 mg, Oral, DAILY, First dose on 02/19/24 at 0900, Until Discontinued, Routine Given 02/25/2024 12:17 PM EDT 10 mg Given 02/24/2024 8:14 AM EDT 10 mg Given 02/23/2024 1:00 PM EDT 10 mg aspirin chewable tablet 81 mg 81 mg, Oral, DAILY, First dose on 02/19/24 at 0900, Until Discontinued, Routine Given 02/25/2024 12:14 PM EDT 81 mg Given 02/24/2024 8:12 AM EDT 81 mg Given 02/23/2024 3:23 PM EDT 81 mg atorvastatin (Lipitor) tablet 40 mg 40 mg, Oral, EVERY EVENING, First dose on Wed02/18/24 at 2315, Until Discontinued, Routine Given 02/24/2024 4:33 PM EDT 40 mg Given 02/23/2024 5:13 PM EDT 40 mg Given 02/22/2024 4:04 PM EDT 40 mg bisacodyL (Dulcolax) suppository 10 mg 10 mg, Rectal, DAILY PRN, Starting on Wed02/22/24 at 0911, Until Wed02/25/24 at 1806, Constipation, Routine Given 02/22/2024 9:39 AM EDT 10 mg calcium carbonate (TUMS) chewable tablet 500 mg 500 mg, Oral, 3 TIMES DAILY WITH MEALS, First dose on Wed02/19/24 at 1700, Until Discontinued, Routine Given 02/24/2024 11:58 AM EDT 500 mg Given 02/24/2024 8:11 AM EDT 500 mg Given 02/23/2024 6:37 PM EDT 500 mg calcium carbonate (TUMS) chewable tablet 500 mg 500 mg, Oral, DAILY PRN, Starting on Wed02/24/24 at 2042, Until Wed02/25/24 at 1132, Heartburn, Routine Given 02/24/2024 9:32 PM EDT 500 mg calcium carbonate (TUMS) chewable tablet 500 mg 500 mg, Oral, 3 TIMES DAILY WITH MEALS, First dose on Wed02/25/24 at 1300, Until Discontinued, Routine Given 02/25/2024 12:28 PM EDT 500 mg carvediloL (Coreg) tablet 12.5 mg 12.5 mg, Oral, 2 TIMES DAILY WITH MEALS, First dose on Wed02/19/24 at 0800, Until Discontinued, Routine Given 02/20/2024 5:38 PM EDT 12.5 mg Given 02/20/2024 8:48 AM EDT 12.5 mg Given 02/19/2024 5:27 PM EDT 12.5 mg carvediloL (Coreg) tablet 12.5 mg 12.5 mg, Oral, 2 TIMES DAILY WITH MEALS, First dose on Wed02/22/24 at 0800, Until Discontinued, Routine Given 02/25/2024 12:28 PM EDT 12.5 mg Given 02/24/2024 4:33 PM EDT 12.5 mg Given 02/24/2024 8:13 AM EDT 12.5 mg carvediloL (Coreg) tablet 12.5 mg 12.5 mg, Oral, ONCE, 1 dose, On 02/21/24 at 2100, Routine Given 02/21/2024 9:38 PM EDT 12.5 mg cholecalciferol (Vitamin D3) tablet 1,000 Units 1,000 Units, Oral, DAILY, First dose on 02/19/24 at 1530, Until Discontinued, 40 units is equivalent to 1 mcg of cholecalciferol., Routine Given 02/25/2024 12:14 PM EDT 1,000 Un its Given 02/24/2024 8:12 AM EDT 1,000 Units Given 02/23/2024 1:00 PM EDT 1,000 Units dextrose 10% infusion 250 mL, at 1,000 mL/hr, Intravenous, EVERY 15 MIN PRN, Starting on Wed02/18/24 at 2001, Until Wed02/25/24 at 1806, For BG 50-70 mg/dL: Oral treatment preferred: [...] insulin orders before administering the next dose. New Bag 02/21/2024 1:58 PM EDT 250 mLs 1000 mL/hr dilTIAZem CD (Cardizem CD) capsule 120 mg 120 mg, Oral, DAILY, First dose on Wed02/19/24 at 0900, Until Discontinued, DO NOT CRUSH OR OPEN, Routine Given 02/25/2024 12:16 PM EDT 120 mg Given 02/24/2024 8:13 AM EDT 120 mg Given 02/23/2024 1:00 PM EDT 120 mg epoetin ken-epbx (Retacrit) injection 10,000 Units 10,000 Units, Intravenous, ONCE IN DIALYSIS PRN, 1 dose, Starting on Wed02/21/24 at 0609, Until Wed02/21/24 at 1043, Other, Dialysis (Intra-Procedure), Routine, What is the indication of use? End Stage Renal Disease (ESRD) on dialysis Given 02/21/2024 10:43 AM EDT 10,000 Uni ts epoetin ken-epbx (Retacrit) injection 10,000 Units 10,000 Units, Intravenous, ONCE IN DIALYSIS PRN, 1 dose, Starting on Wed02/25/24 at 0619, Until Wed02/25/24 at 0937, Other, Dialysis (Intra-Procedure), Routine, What is the indication of use? End Stage Renal Disease (ESRD) on dialysis Given 02/25/2024 9:37 AM EDT 10,000 Unit s fentaNYL (PF) (50 mcg/mL) injection 50 mcg 50 mcg, Intravenous, EVERY 5 MIN PRN, Starting on Wed02/21/24 at 1515, Until Wed02/21/24 at 2002, Pain, or prior to injection of local anesthetic., Hold for respiratory rate less than 8 breaths per minute. (maximum dose 200 mcg), Day of Surgery (Day of Procedure), Routine Given 02/21/2024 3:40 PM EDT 50 mcg glucagon (Glucagen) (1 mg/mL) injection solution 1 mg 1 mg, Intramuscular, EVERY 15 MIN PRN, Starting on Wed02/18/24 at 2001, Until Wed02/25/24 at 1806, Low blood sugar, For BG 50-70 mg/dL: [...] Buccal, EVERY 15 MIN PRN, Starting on Wed02/18/24 at 2001, Until Wed02/25/24 at 1806, Low blood sugar, For BG 50-70 mg/dL: [...] weight of tube = 37.5 grams.), Routine Given 02/23/2024 2:38 PM EDT 15 g of glucose haloperidoL lactate (Haldol) (5 mg/mL) injection 2 mg 2 mg, Intravenous, ONCE, 1 dose, On Wed02/21/24 at 1930, If medication ordered subcutaneously, do not administer more than 3 mL as a single injection., Routine Given 02/21/2024 7:05 PM EDT 2 mg heparin (porcine) (1,000 units/mL) injection 4,000 Units 4,000 Units, Intravenous, ONCE IN DIALYSIS, 1 dose, On Wed02/21/24 at 0700, For use in Dialysis only., Dialysis (Intra-Procedure), Routine Given 02/21/2024 8:07 AM EDT 4,000 Un its heparin (porcine) (5,000 units/1 mL) subcutaneous injection 5,000 Units 5,000 Units, Subcutaneous, EVERY 8 HOURS SCHEDULED, First dose on Wed02/18/24 at 2315, Until Discontinued, Routine Given 02/25/2024 5:39 AM EDT 5,000 Units Given 02/24/2024 9:33 PM EDT 5,000 Units Given 02/24/2024 4:34 PM EDT 5,000 Units insulin glargine-ygfn (Semglee) (100 unit/mL) subcutaneous injection vial 10 Units 10 Units, Subcutaneous, DAILY, First dose (after last modification) on Wed02/24/24 at 0900, Until Discontinued, Hold dose if going to dialysis., Routine Given 02/24/2024 10:45 AM EDT 10 Units insulin glargine-ygfn (Semglee) (100 unit/mL) subcutaneous injection vial 15 Units 15 Units, Subcutaneous, DAILY, First dose (after last modification) on Wed02/25/24 at 1030, Until Discontinued, Hold dose if going to dialysis., Routine Given 02/25/2024 12:20 PM EDT 15 Units insulin glargine-ygfn (Semglee) (100 unit/mL) subcutaneous injection vial 15 Units 15 Units, Subcutaneous, DAILY WITH DINNER, First dose (after last modification) on Wed02/26/24 at 1700, Until Discontinued, Hold dose if going to dialysis., Routine insulin glargine-ygfn (Semglee) (100 unit/mL) subcutaneous injection vial 20 Units 20 Units, Subcutaneous, DAILY, First dose (after last modification) on Wed02/21/24 at 0900, Until Discontinued, Routine Given 02/23/2024 9:36 AM EDT 20 Unit s Given 02/22/2024 9:39 AM EDT 20 Units insulin glargine-ygfn (Semglee) (100 unit/mL) subcutaneous injection vial 55 Units 55 Units, Subcutaneous, DAILY, First dose on Wed02/19/24 at 0900, Until Discontinued, Routine Given 02/20/2024 8:53 AM EDT 55 Units Given 02/19/2024 11:24 AM EDT 27 Units insulin lispro (HumaLOG;Admelog) (100 unit/mL) subcutaneous injection vial 0-15 Units 0-15 Units, Subcutaneous, 3 TIMES DAILY WITH MEALS, First dose on Wed02/21/24 at 1200, Until Discontinued, MEAL ASSOCIATED Give 1 unit for every 6 grams carbohydrate. Hold if not eating or if BG less than 70 mg/dL. , Routine Given 02/23/2024 9:36 AM EDT 4 Units Given 02/22/2024 6:38 PM EDT 13 Units insulin lispro (HumaLOG;Admelog) (100 unit/mL) subcutaneous injection vial 0-6 Units 0-6 Units, Subcutaneous, EVERY 4 HOURS SCHEDULED, First dose (after last modification) on Wed02/23/24 at 1200, Until Discontinued, CORRECTION BOLUS [1-6 Units] Custom [...] mg/dL in 2 hours. , Routine Given 02/25/2024 2:03 PM EDT 3 Units Given 02/25/2024 12:28 PM EDT 1 Units Given 02/25/2024 3:39 AM EDT 1 Units insulin lispro (HumaLOG;Admelog) (100 unit/mL) subcutaneous injection vial 0-8 Units 0-8 Units, Subcutaneous, 3 TIMES DAILY WITH MEALS, First dose (after last modification) on Wed02/23/24 at 1700, Until Discontinued, MEAL ASSOCIATED Give 1 unit for every 10 grams carbohydrate. Hold if not eating or if BG less than 70 mg/dL. , Routine Given 02/23/2024 6:39 PM EDT 1 Units insulin lispro (HumaLOG;Admelog) (100 unit/mL) subcutaneous injection vial 0-9 Units 0-9 Units, Subcutaneous, EVERY 4 HOURS SCHEDULED, First dose (after last modification) on Wed02/21/24 at 1200, Until Discontinued, CORRECTION BOLUS [1-9 Units] Custom Sliding Scale (BG in mg/dL): Correction factor 20 (1 unit of insulin is expected to drop the glucose 20 mg/dL) BG 140 - 160 Give 1 units BG 161 - 180 Give 2 units BG 181 - 200 Give 3 units BG 201 - 220 Give 4 units BG 221 - 240 Give 5 units BG 241 - 260 Give 6 units BG 261 - 280 Give 7 units BG 281 - 300 Give 8 units If BG greater than 300, give 9 units and recheck BG in 2 hours. If recheck BG remains GREATER THAN 240, GIVE 4 units & call for new insulin orders. If recheck BG is less than 240 after two hours, give no insulin and resume prior schedule. DO NOT hold if NPO, unless specifically directed to do so by written order. Per Blood Glucose Monitoring Policy, re-check a BG of > 240 mg/dL in 2 hours. , Routine Given 02/22/2024 8:25 PM EDT 2 Units Given 02/22/2024 4:06 PM EDT 3 Units Given 02/22/2024 11:53 AM EDT 2 Units insulin lispro (HumaLOG;Admelog) (100 unit/mL) subcutaneous injection vial 2-12 Units 2-12 Units, Subcutaneous, EVERY 4 HOURS SCHEDULED, First dose on Wed02/18/24 at 2030, Until Discontinued, CORRECTION BOLUS [2-12 Units] Resistant Sliding Scale (BG in mg/dL) Correction Factor 10 (1 unit of insulin is expected to drop the glucose 10 mg/dL) ?? BG 140 - 160 Give 2 units BG 161 - 180 Give 4 units BG 181 - 200 Give 6 units BG 201 - 220 Give 8 units BG 221 - 240 Give 10 units BG greater than 240, give 12 units and recheck BG in 2 hours. - If recheck BG is LESS than 240, give no insulin and resume schedule. - If recheck BG is GREATER than or EQUAL to 240, give 12 units and repeat BG in 2 hours (no more than 3 times) & call for new insulin orders. DO NOT hold if NPO, unless specifically directed to do so by written order. ?? Per Inpatient Subcutaneous Insulin Policy, recheck a BG of greater than 240 mg/dL in 2 hours, Routine Given 02/20/2024 7:40 PM ED T 8 Units Given 02/20/2024 5:34 PM EDT 12 Units Given 02/20/2024 12:18 PM EDT 4 Units methocarbamoL (Robaxin) tablet 500 mg 500 mg, Oral, 3 TIMES DAILY PRN, Starting on Wed02/22/24 at 0201, Until Wed02/25/24 at 1806, Muscle spasms, Routine Given 02/25/2024 5:39 AM EDT 500 mg Given 02/24/2024 9:33 PM EDT 500 mg Given 02/24/2024 5:59 AM EDT 500 mg midazolam (pf) (Versed) (1 mg/mL) injection 1 mg 1 mg, Intravenous, EVERY 5 MIN PRN, Starting on Wed02/21/24 at 1515, Until Wed02/21/24 at 2002, Other, sedation or prior to injection of local anesthetic, Hold for delirium/agitation. (Maximum dose 5 mg)., Day of Surgery (Day of Procedure), Routine Given 02/21/2024 3:38 PM EDT 1 mg oxyCODONE (Roxicodone) tablet 10 mg 10 mg, Oral, EVERY 4 HOURS PRN, Starting on Wed02/18/24 at 2001, Until Wed02/25/24 at 1806, Pain, severe pain (7-10), Routine Given 02/24/2024 11:37 PM EDT 10 mg Given 02/24/2024 11:58 AM EDT 10 mg Given 02/24/2024 8:11 AM EDT 10 mg oxyCODONE (Roxicodone) tablet 5 mg 5 mg, Oral, EVERY 4 HOURS PRN, Starting on Wed02/18/24 at 2001, Until Wed02/25/24 at 1806, Pain, moderate pain (4-6), Routine oxyCODONE (Roxicodone) tablet 5 mg 5 mg, Oral, EVERY 4 HOURS PRN, Starting on Wed02/18/24 at 2224, Until Wed02/23/24 at 0707, Pain, Breakthrough pain rescue dose, For moderate or severe pain (4-10) unrelieved at least 60 minutes after initial PRN dose was administered Max 3 doses/24 hours. If pain still unrelieved after 3rd rescue dose within 24 hours, contact provider., Routine Given 02/22/2024 6:42 PM EDT 5 mg Given 02/22/2024 1:42 AM EDT 5 mg Given 02/20/2024 5:50 PM EDT 5 mg pantoprazole EC (Protonix) tablet 40 mg 40 mg, Oral, DAILY, First dose on Virid[place] 02/24/24 at 1800, Until Discontinued, DO NOT CRUSH OR OPEN, Routine Given 02/25/2024 12:17 PM EDT 40 mg Given 02/24/2024 6:00 PM EDT 40 mg piperacillin-tazobactam (Zosyn) 3.375 g vial attach to sodium chloride 0.9% 50 mL Mini-Bag Plus 3.375 g, Intravenous, EVERY 8 HOURS, First dose on 02/19/24 at 0400, Until Discontinued, Administer over 4 Hours, Warning Vesicant/Irritant Medication Do not administer or Y-site with lactated ringers., Indication for (Active or Suspected): Skin/Skin Structure New Bag 02/19/2024 5:23 AM EDT 3.375 g 12.5 mL/hr piperacillin-tazobactam (Zosyn) 3.375 g vial attach [...] 5:21 AM EDT 3.375 g 12.5 mL/hr polyethylene glycoL (Miralax) packet 17 g 17 g, Oral, DAILY, First dose on Wed02/22/24 at 1000, Until Discontinued, Routine Given 02/23/2024 1:16 PM EDT 17 g Given 02/22/2024 11:49 AM EDT 17 g pregabalin (Lyrica) capsule 100 mg 100 mg, Oral, 2 TIMES DAILY, First dose on Wed02/18/24 at 2315, Until Discontinued, Routine Given 02/25/2024 12:16 PM EDT 100 mg Given 02/24/2024 9:33 PM EDT 100 mg Given 02/24/2024 8:13 AM EDT 100 mg prochlorperazine (Compazine) (5 mg/mL) injection 5 mg 5 mg, Intravenous, EVERY 30 MIN PRN, 2 doses, Starting on Wed02/21/24 at 1739, Until Wed02/21/24 at 2002, Nausea, Vomiting, If multiple antiemetics ordered, use ondansetron first and if ineffective use prochlorperazine or haloperidoL second, PACU Recovery, Routine Given 02/21/2024 6:40 PM EDT 5 mg ROpivacaine (Naropin) 0.2% (2 mg/mL) infusion (AMBIT PUMP) Perineural, Laterality: Left, Infusion Site: sciatic, Basal Flow Rate (mL/hr): : 6 mL/hr, STUDIO CAMERA OPERATOR Bolus Amt: 3 mL, STUDIO CAMERA OPERATOR Bolus Frequency: 30 minutes, 1 Hour Dose Limit: : 12 mL, FOR AMBIT PUMP New Bag 02/21/2024 7:51 PM EDT senna-docusate (Pericolace) 8.6-50 mg per tablet 2 tablet 2 tablet, Oral, 2 TIMES DAILY, First dose on Wed02/22/24 at 1000, Until Discontinued, Routine Given 02/24/2024 9:33 PM EDT 2 tablets Given 02/24/2024 8:10 AM EDT 2 tablets Given 02/23/2024 9:09 PM EDT 2 tablets sevelamer carbonate (Renvela) tablet 1,600 mg 1,600 mg, Oral, 3 TIMES DAILY WITH MEALS, First dose (after last modification) on Wed02/19/24 at 0800, Until Discontinued Given 02/25/2024 12:16 PM EDT 1,6 00 mg Given 02/24/2024 4:33 PM EDT 1,600 mg Given 02/24/2024 11:58 AM EDT 1,600 mg sodium chloride 0.9 % (flush) (BD PosiFlush Normal Saline 0.9) flush 5 mL 5 mL, Intravenous, 2 TIMES DAILY, First dose on Wed02/18/24 at 2315, Until Discontinued, Routine Given 02/25/2024 12:19 PM EDT 5 mLs Given 02/24/2024 9:33 PM EDT 5 mLs Given 02/24/2024 8:16 AM EDT 5 mLs sodium chloride 0.9% infusion 100 mL, Intravenous, EVERY 15 MIN PRN, Starting on Wed02/25/24 at 0619, Until Wed02/25/24 at 1806, If administration of NS boluses will result in positive fluid balance at end of treatment, contact MD., Dialysis (Intra-Procedure) sodium phosphates (FLEET) 19-7 gram/118 mL rectal enema 1 Bottle 1 Bottle, Rectal, ONCE, 1 dose, On Wed02/22/24 at 1145, Routine Given 02/22/2024 11:45 AM EDT 1 Bottle vancomycin (Vancocin) 1 gram in sodium chloride 0.9% 250 mL infusion 1 g, Intravenous, at 250 mL/hr, ONCE, 1 dose, On Wed02/21/24 at 1415, Maximum infusion rate is 1 gram/hour. If flushing of the face, neck, upper body, arms, and/or back occurs decrease infusion rate by 50% to reduce the severity of symptoms. This medication may have an associated drug lab level. Please see MAR for scheduled level. Warning Vesicant/Irritant Medication , Routine, Indication for (Active or Suspected): Bone/Joint New Bag 02/21/2024 2:45 PM EDT 1 g 250 mL/hr vancomycin (Vancocin) 2,250 mg in sodium chloride 0.9% 545 mL infusion 2,250 mg (rounded from 2,155 mg = 25 mg/kg/dose ? 86.2 kg), Intravenous, at 181.7 mL/hr, ONCE, 1 dose, On Wed02/18/24 at 2345, Maximum infusion rate is 1 gram/hour. If flushing of the face, neck, upper body, arms, and/or back occurs decrease infusion rate by 50% to reduce the severity of symptoms. This medication may have an associated drug lab level. Please see MAR for scheduled level. Warning Vesicant/Irritant Medication , Routine, Indication for (Active or Suspected): Bone/Joint / bilateral foot wounds New Bag 02/19/2024 12:16 AM EDT 2,250 mg 181.7 mL/hr vancomycin (Vancocin) 500 mg vial attach to sodium chloride 0.9% 100 mL Mini-Bag Plus 500 mg, Intravenous, at 200 mL/hr, ONCE, 1 dose, On Wed02/23/24 at 1300, Administer after dialysis Maximum infusion rate is 1 gram/hour. If flushing of the face, neck, upper body, arms, and/or back occurs decrease infusion rate by 50% to reduce the severity of symptoms. This medication may have an associated drug lab level. Please see MAR for scheduled level. Warning Vesicant/Irritant Medication , Routine, Indication for (Active or Suspected): Bone/Joint New Bag 02/23/2024 1:04 PM EDT 500 mg 200 mL/hr vitamin B Complex-vitamin C-folic Acid (Megan-meggan) 0.8 mg per tablet 1 tablet 1 tablet, Oral, DAILY, First dose on Wed02/19/24 at 1530, Until Discontinued, Routine Given 02/25/2024 12:14 PM EDT 1 tablet Given 02/24/2024 8:12 AM EDT 1 tablet Given 02/23/2024 1:01 PM EDT 1 tablet documented in this encounter Active and Recently Administered Medications Times are shown in EDT. Scheduled Medication Order 02/23/2024 02/24/2024 02/25/2024 acetaminophen (Tylenol) tablet 975 mg 975 mg, Oral, EVERY 6 HOURS SCHEDULED, First dose (after last modification) on Wed02/22/24 at 1200, Until Discontinued, Administer for pain or temperature greater than or equal to 38.2 degrees Celsius. Maximum daily dose of acetaminophen from all sources not to exceed 4,000 mg. When ordered for pain, acetaminophen should be given even when other ordered pain medications are indicated., Routine 0517 (Given - Provider: Zita Michelle RN)1257 (Given - Provider: Kurt Ortega RN)1713 (Given - Provider: Kurt Ortega RN)2356 (Given - Provider: Zita Michelle RN) 0559 (Given - Provider: Zita Michelle RN)1158 (Given - Provider: Kurt Ortega RN)1800 (Not Given - Provider: Melissa Benitez RN - Reason: Patient/family refused)2337 (Given - Provider: Zita Michelle RN) 0539 (Given - Provider: Zita Michelle RN)1215 (Given - Provider: Smitha Layne, VIDYA) amLODIPine (Norvasc) tablet 10 mg 10 mg, Oral, DAILY, First dose on Wed02/19/24 at 0900, Until Discontinued, Routine 1300 (Given - Provider: Kurt Ortega RN) 0814 (Given - Provider: Kurt Ortega RN) 1217 (Given - Provider: Smitha Layne, VIDYA) aspirin chewable tablet 81 mg 81 mg, Oral, DAILY, First dose on 02/19/24 at 0900, Until Discontinued, Routine 1523 (Given - Provider: Kurt Ortega RN) 0812 (Given - Provider: Kurt Ortega RN) 1214 (Given - Provider: Smitha Layne RN) atorvastatin (Lipitor) tablet 40 mg 40 mg, Oral, EVERY EVENING, First dose on Wed02/18/24 at 2315, Until Discontinued, Routine 1713 (Given - Provider: Kurt Ortega RN) 1633 (Given - Provider: Kurt Ortega RN) calcium carbonate (TUMS) chewable tablet 500 mg (CANCELED) 500 mg, Oral, 3 TIMES DAILY WITH MEALS, First dose on Wed02/19/24 at 1700, Until Discontinued, Routine 0800 (Not Given - Provider: Kurt Ortega RN - Reason: See comment - Comment: Patient going to HD)1200 (Given - Provider: Kurt Ortega RN)1837 (Given - Provider: Kurt Otrega RN - Comment: Late dinner) 0811 (Given - Provider: Kurt Ortega RN)1158 (Given - Provider: Kurt Ortega RN) calcium carbonate (TUMS) chewable tablet 500 mg 500 mg, Oral, 3 TIMES DAILY WITH MEALS, First dose on Wed02/25/24 at 1300, Until Discontinued, Routine 1228 (Given - Provider: Smitha Layne RN) carvediloL (Coreg) tablet 12.5 mg 12.5 mg, Oral, 2 TIMES DAILY WITH MEALS, First dose on Wed02/22/24 at 0800, Until Discontinued, Routine 1523 (Given - Provider: Kurt Ortega RN)1700 (Not Given - Provider: Kurt Ortega RN - Reason: See comment - Comment: AM dose given after HD, per pharmacist patient can have another dose later today (22:00 or 23:00) or 1 dose today and resume 2 times daily tomorrow, 02/23) 0813 (Given - Provider: Kurt Ortega RN)1633 (Given - Provider: Kurt Ortega RN) 1228 (Given - Provider: Smitha Layne RN) cholecalciferol (Vitamin D3) tablet 1,000 Units 1,000 Units, Oral, DAILY, First dose on Wed02/19/24 at 1530, Until Discontinued, 40 units is equivalent to 1 mcg of cholecalciferol., Routine 1300 (Given - Provider: Kurt Ortega RN) 0812 (Given - Provider: Krut Ortega RN) 1214 (Given - Provider: Smitha Layne RN) dilTIAZem CD (Cardizem CD) capsule 120 mg 120 mg, Oral, DAILY, First dose on Wed02/19/24 at 0900, Until Discontinued, DO NOT CRUSH OR OPEN, Routine 1300 (Given - Provider: Kurt Ortega RN) 0813 (Given - Provider: Kurt Ortega RN) 1216 (Given - Provider: Smitha Layne RN) heparin (porcine) (5,000 units/1 mL) subcutaneous injection 5,000 Units 5,000 Units, Subcutaneous, EVERY 8 HOURS SCHEDULED, First dose on Wed02/18/24 at 2315, Until Discontinued, Routine 0517 (Given - Provider: Zita Michelle RN)1439 (Given - Provider: Goldie Mendoza RN)2109 (Given - Provider: Zita Michelle RN) 0559 (Given - Provider: Zita Michelle RN)1634 (Given - Provider: Kurt Ortega RN)2133 (Given - Provider: Zita Michelle RN) 0539 (Given - Provider: Zita Michelle RN)1400 (Due) insulin glargine-ygfn (Semglee) (100 unit/mL) subcutaneous injection vial 10 Units (CANCELED) 10 Units, Subcutaneous, DAILY, First dose (after last modification) on Wed02/24/24 at 0900, Until Discontinued, Hold dose if going to dialysis., Routine 1045 (Given - Provider: Kurt Ortega RN) 0900 (Not Given - Provider: Smitha Layne RN - Reason: See comment - Comment: order changed, see MAR for alt documentation) insulin glargine-ygfn (Semglee) (100 unit/mL) subcutaneous injection vial 15 Units (CANCELED) 15 Units, Subcutaneous, DAILY, First dose (after last modification) on Wed02/25/24 at 1030, Until Discontinued, Hold dose if going to dialysis., Routine 1220 (Given - Provider: Smitha Layne RN) insulin glargine-ygfn (Semglee) (100 unit/mL) subcutaneous injection vial 15 Units 15 Units, Subcutaneous, DAILY WITH DINNER, First dose (after last modification) on Wed02/26/24 at 1700, Until Discontinued, Hold dose if going to dialysis., Routine insulin glargine-ygfn (Semglee) (100 unit/mL) subcutaneous injection vial 20 Units (CANCELED) 20 Units, Subcutaneous, DAILY, First dose (after last modification) on Wed02/21/24 at 0900, Until Discontinued, Routine 935 (Given - Provider: Mirna Blake LPN) insulin lispro (HumaLOG;Admelog) (100 unit/mL) subcutaneous injection vial 0-15 Units (CANCELED) 0-15 Units, Subcutaneous, 3 TIMES DAILY WITH MEALS, First dose on Wed02/21/24 at 1200, Until Discontinued, MEAL ASSOCIATED Give 1 unit for every 6 grams carbohydrate. Hold if not eating or if BG less than 70 mg/dL. , Routine 935 (Given - Provider: Mirna Blake LPN)1200 (Not Given - Provider: Kurt Ortega RN - Reason: See comment - Comment: Diabetes management stated not to give mealtime coverage for lunch today) insulin lispro (HumaLOG;Admelog) (100 unit/mL) subcutaneous injection vial 0-6 Units(Linked Group 1) 0-6 Units, Subcutaneous, EVERY 4 HOURS SCHEDULED, First dose (after last modification) on Wed02/23/24 at 1200, Until Discontinued, CORRECTION BOLUS [1-6 Units] Custom [...] 240 mg/dL in 2 hours. , Routine 1200 (Not Given - Provider: Kurt Ortega RN - Reason: Order parameters not met - Comment: BG 69)1600 (Not Given - Provider: Goldie Mendoza RN - Reason: Order parameters not met)2000 (Not Given - Provider: Zita Michelle RN - Reason: Order parameters not met) 0000 (Not Given - Provider: Zita Michelle RN - Reason: Order parameters not met)0400 (Not Given - Provider: Zita Michelle RN - Reason: Order parameters not met)0800 (Not Given - Provider: Kurt Ortega RN - Reason: Order parameters not met - Comment: BG 114)1200 (Not Given - Provider: Kurt Ortega RN - Reason: Order parameters not met - Comment: BG 147)1634 (Given - Provider: Kurt Ortega RN - Comment: BG 210)2038 (Given - Provider: Zita Michelle RN)2338 (Given - Provider: Zita Michelle RN) 0339 (Given - Provider: Zita Michelle RN)0800 (Not Given - Provider: Smitha Layne RN - Reason: Order parameters not met)1228 (Given - Provider: Smitha Layne RN)1403 (Given - Provider: Smitha Layne RN)1600 (Due) insulin lispro (HumaLOG;Admelog) (100 unit/mL) subcutaneous injection vial 0-8 Units 0-8 Units, Subcutaneous, 3 TIMES DAILY WITH MEALS, First dose (after last modification) on Wed02/23/24 at 1700, Until Discontinued, MEAL ASSOCIATED Give 1 unit for every 10 grams carbohydrate. Hold if not eating or if BG less than 70 mg/dL. , Routine 1839 (Given - Provider: Kurt Ortega RN - Comment: Late dinner) 1043 (Not Given - Provider: Kurt Ortega RN - Reason: Order parameters not met - Comment: Patient ate 3g of carbs)1200 (Not Given - Provider: Kurt Ortega RN - Reason: See comment - Comment: Pt refusing to eat lunch; upset about diet orders)1700 (Not Given - Provider: Melissa Benitez RN - Reason: See comment - Comment: Pt declined dinner) 0800 (Not Given - Provider: Smitha Layne RN - Reason: Order parameters not met)1200 (Not Given - Provider: Smitha Layne RN - Reason: Order parameters not met - Comment: pt did not eat lunch) iron sucrose (Venofer) 200 mg in sodium chloride 0.9% 110 mL infusion 200 mg, Intravenous, ONCE IN DIALYSIS, 1 dose, On Wed02/25/24 at 1145, Administer over 15 Minutes, Patients should be closely monitored for signs of hypersensitivity during and for at least 30 min after each administration. The observation period is not needed for patients who have demonstrated tolerability., Dialysis (Intra-Procedure) 1145 (Not Given - Provider: Smitha Layne RN - Reason: See comment - Comment: ordered for HD) pantoprazole EC (Protonix) tablet 40 mg 40 mg, Oral, DAILY, First dose on Wed02/24/24 at 1800, Until Discontinued, DO NOT CRUSH OR OPEN, Routine 1800 (Given - Provider: Melissa Benitez RN) 1217 (Given - Provider: Smitha Layne, VIDYA) piperacillin-tazobactam (Zosyn) 3.375 g vial attach to sodium chloride 0.9% 50 mL Mini-Bag Plus (CANCELED) 3.375 g, Intravenous, EVERY 12 HOURS, First dose (after last modification) on 02/19/24 at 1723, Until Discontinued, Administer over 4 Hours, Warning Vesicant/Irritant Medication Do not administer or Y-site with lactated ringers. renal adjusted per P*T renal dosing policy, Indication for (Active or Suspected): Skin/Skin Structure 0521 (New Bag - Provider: Zita Michelle RN)0921 (Stopped - Provider: Kurt Ortega RN)1713 (New Bag - Provider: Kurt Ortega RN)2113 (Stopped - Provider: Zita Michelle RN) 0559 (New Bag - Provider: Zita Michelle RN)0839 (Stopped - Provider: Kurt Ortega RN - Comment: Time automatically adjusted from order being discontinued) polyethylene glycoL (Miralax) packet 17 g 17 g, Oral, DAILY, First dose on Wed02/22/24 at 1000, Until Discontinued, Routine 1316 (Given - Provider: Kurt Ortega RN) 0815 (Not Given - Provider: Kurt Ortega RN - Reason: Patient/family refused) 0900 (Not Given - Provider: Smitha Layne RN - Reason: Patient/family refused) pregabalin (Lyrica) capsule 100 mg 100 mg, Oral, 2 TIMES DAILY, First dose on Wed02/18/24 at 2315, Until Discontinued, Routine 1259 (Given - Provider: Kurt Ortega RN)2109 (Given - Provider: Zita Michelle RN) 0813 (Given - Provider: Kurt Ortega RN)2133 (Given - Provider: Zita Michelle RN) 1216 (Given - Provider: Smitha Layne, VIDYA) senna-docusate (Pericolace) 8.6-50 mg per tablet 2 tablet 2 tablet, Oral, 2 TIMES DAILY, First dose on Wed02/22/24 at 1000, Until Discontinued, Routine 1258 (Given - Provider: Kurt Ortega RN)2109 (Given - Provider: Zita Michelle RN) 0810 (Given - Provider: Kurt Ortega RN)2133 (Given - Provider: Zita Michelle RN) 0900 (Not Given - Provider: Smitha Layne RN - Reason: Patient/family refused) sevelamer carbonate (Renvela) tablet 1,600 mg 1,600 mg, Oral, 3 TIMES DAILY WITH MEALS, First dose (after last modification) on Wed02/19/24 at 0800, Until Discontinued 0800 (Not Given - Provider: Kurt Ortega RN - Reason: See comment - Comment: Patient going to HD)1257 (Given - Provider: Kurt Ortega RN)1837 (Given - Provider: Kurt Ortega RN - Comment: Late dinner) 0811 (Given - Provider: Kurt Ortega RN)1158 (Given - Provider: Kurt Ortega RN)1633 (Given - Provider: Kurt Ortega RN) 0800 (Not Given - Provider: Smitha Layne RN - Reason: Order parameters not met)1216 (Given - Provider: Smitha Layne RN) sodium chloride 0.9 % (flush) (BD PosiFlush Normal Saline 0.9) flush 5 mL 5 mL, Intravenous, 2 TIMES DAILY, First dose on Wed02/18/24 at 2315, Until Discontinued, Routine 1524 (Given - Provider: Kurt Ortega RN)2109 (Given - Provider: Zita Michelle RN) 0816 (Given - Provider: Kurt Ortega RN)2133 (Given - Provider: Zita Michelle, VIDYA) 1219 (Given - Provider: Smitha Layne, VIDYA) vancomycin (Vancocin) 500 mg vial attach to sodium chloride 0.9% 100 mL Mini-Bag Plus (COMPLETED) 500 mg, Intravenous, at 200 mL/hr, ONCE, 1 dose, On Wed02/23/24 at 1300, Administer after dialysis Maximum infusion rate is 1 gram/hour. If flushing of the face, neck, upper body, arms, and/or back occurs decrease infusion rate by 50% to reduce the severity of symptoms. This medication may have an associated drug lab level. Please see MAR for scheduled level. Warning Vesicant/Irritant Medication , Routine, Indication for (Active or Suspected): Bone/Joint 1304 (New Bag - Provider: Kurt Ortega RN)1334 (Stopped - Provider: Goldie Mendoza RN) vitamin B Complex-vitamin C-folic Acid (Megan-meggan) 0.8 mg per tablet 1 tablet 1 tablet, Oral, DAILY, First dose on 02/19/24 at 1530, Until Discontinued, Routine 1301 (Given - Provider: Kurt Ortega RN) 0812 (Given - Provider: Kurt Ortega RN) 1214 (Given - Provider: Smitha Layne, VIDYA) PRN Medication Order 02/23/2024 02/24/2024 02/25/2024 bisacodyL (Dulcolax) suppository 10 mg 10 mg, Rectal, DAILY PRN, Starting on Wed02/22/24 at 0911, Until Wed02/25/24 at 1806, Constipation, Routine calcium carbonate (TUMS) chewable tablet 500 mg (CANCELED) 500 mg, Oral, DAILY PRN, Starting on Wed02/24/24 at 2042, Until Wed02/25/24 at 1132, Heartburn, Routine 213 (Given - Provider: Zita Michelle, VIDYA) dextrose 10% infusion(Linked Group 2) 250 mL, at 1,000 mL/hr, Intravenous, EVERY 15 MIN PRN, Starting on Wed02/18/24 at 2001, Until Wed02/25/24 at 1806, For BG 50-70 mg/dL: Oral treatment preferred: [...] insulin orders before administering the next dose. 1438 (See Alternative - Provider: Goldie Mendoza RN) epoetin ken-epbx (Retacrit) injection 10,000 Units (COMPLETED) 10,000 Units, Intravenous, ONCE IN DIALYSIS PRN, 1 dose, Starting on Wed02/25/24 at 0619, Until Wed02/25/24 at 0937, Other, Dialysis (Intra-Procedure), Routine, What is the indication of use? End Stage Renal Disease (ESRD) on dialysis 0937 (Given - Provider: Sandra Villanueva RN) glucagon (Glucagen) (1 mg/mL) injection solution 1 mg(Linked Group 2) 1 mg, Intramuscular, EVERY 15 MIN PRN, Starting on Wed02/18/24 at 2001, Until Wed02/25/24 at 1806, Low blood sugar, For BG 50-70 mg/dL: [...] before administering the next dose. , Routine 1438 (See Alternative - Provider: Goldie Mendoza RN) glucose (Glutose) 40% oral geL(Linked Group 2) 15-30 g of glucose, Buccal, EVERY 15 MIN PRN, Starting on Wed02/18/24 at 2001, Until Wed02/25/24 at 1806, Low blood sugar, For BG 50-70 mg/dL: [...] weight of tube = 37.5 grams.), Routine 1438 (Given - Provider: Goldie Mendoza RN) lidocaine (Xylocaine) 1% (10 mg/mL) injection 3 mg 3 mg (0.3 mL), Subcutaneous, ONCE PRN, 1 dose, Starting on Wed02/18/24 at 2224, Until Wed02/25/24 at 1806, for discomfort with PIV insertion, Routine methocarbamoL (Robaxin) tablet 500 mg 500 mg, Oral, 3 TIMES DAILY PRN, Starting on Wed02/22/24 at 0201, Until Wed02/25/24 at 1806, Muscle spasms, Routine 0517 (Given - Provider: Zita Michelle RN)1258 (Given - Provider: Kurt Ortega RN)2109 (Given - Provider: Zita Michelle RN) 0559 (Given - Provider: Zita Michelle RN)2133 (Given - Provider: Zita Michelle RN) 0539 (Given - Provider: Zita Michelle RN) oxyCODONE (Roxicodone) tablet 10 mg(Linked Group 3) 10 mg, Oral, EVERY 4 HOURS PRN, Starting on Wed02/18/24 at 2000, Until Wed02/25/24 at 1806, Pain, severe pain (7-10), Routine 0517 (Given - Provider: Zita Michelle RN)0936 (Given - Provider: Mirna Blake LPN)1258 (Given - Provider: Kurt Ortega RN)1837 (Given - Provider: Kurt Ortega RN - Comment: Late dinner)2356 (Given - Provider: Zita Michelle RN) 0402 (Given - Provider: Zita Michelle RN)0811 (Given - Provider: Kurt Ortega RN)1158 (Given - Provider: Kurt Ortega RN)2337 (Given - Provider: Zita Michelle RN) oxyCODONE (Roxicodone) tablet 5 mg(Linked Group 3) 5 mg, Oral, EVERY 4 HOURS PRN, Starting on Wed02/18/24 at 2000, Until Wed02/25/24 at 1806, Pain, moderate pain (4-6), Routine 0517 (See Alternative - Provider: Zita Michelle VIDYA)0936 (See Alternative - Provider: Mirna Blake LPN)1258 (See Alternative - Provider: Kurt Ortega, VIDYA)1837 (See Alternative - Provider: Kurt Ortega, VIDYA)2356 (See Alternative - Provider: Zita Michelle, VIDYA) 0402 (See Alternative - Provider: Zita Michelle, RN)0811 (See Alternative - Provider: Kurt Ortega, VIDYA)1158 (See Alternative - Provider: Kurt Ortega RN)2337 (See Alternative - Provider: Zita Michelle RN) sodium chloride 0.9 % (flush) (BD PosiFlush Normal Saline 0.9) flush 5-20 mL 5-20 mL, Intravenous, EVERY 1 MIN PRN, Starting on Wed02/18/24 at 2224, Until Wed02/25/24 at 1806, flush, Flush pertains to all indwelling lines. Flush per protocol found in the job aid using the link provided on this medication record., Routine sodium chloride 0.9% infusion 100 mL, Intravenous, EVERY 15 MIN PRN, Starting on Wed02/25/24 at 0619, Until Wed02/25/24 at 1806, If administration of NS boluses will result in positive fluid balance at end of treatment, contact MD., Dialysis (Intra-Procedure) Linked Groups Order Group 1: POCT Fingerstick Glucose (CANCELED) Routine, EVERY 4 HOURS, First occurrence on Wed02/23/24 at 1200, Until Specified, Consider choosing EVERY 4 HOURS as frequency for: - Type 1 Diabetes - At least 24 hours after coming off an insulin drip - At least 24 hours after admission for DKA - Hypoglycemia unawareness - Patients who are otherwise unstable Select the same frequency for the correction bolus insulin order And insulin lispro (HumaLOG;Admelog) (100 unit/mL) subcutaneous injection vial 0-6 UnitsJump to med 0-6 Units, Subcutaneous, EVERY 4 HOURS SCHEDULED, First dose (after last modification) on Wed02/23/24 at 1200, Until Discontinued, CORRECTION BOLUS [1-6 Units] Custom [...] Buccal, EVERY 15 MIN PRN, Starting on Wed02/18/24 at 2000, Until Wed02/25/24 at 1806, Low blood sugar, For BG 50-70 mg/dL: [...] Intravenous, EVERY 15 MIN PRN, Starting on Wed02/18/24 at 2000, Until Wed02/25/24 at 1806, For BG 50-70 mg/dL: Oral treatment preferred: [...] Intramuscular, EVERY 15 MIN PRN, Starting on Wed02/18/24 at 2000, Until Wed02/25/24 at 1806, Low blood sugar, For BG 50-70 mg/dL: [...] the next dose. , Routine Group 3: oxyCODONE (Roxicodone) tablet 5 mgJump to med 5 mg, Oral, EVERY 4 HOURS PRN, Starting on Wed02/18/24 at 2000, Until Wed02/25/24 at 1806, Pain, moderate pain (4-6), Routine Or oxyCODONE (Roxicodone) tablet 10 mgJump to med 10 mg, Oral, EVERY 4 HOURS PRN, Starting on Wed02/18/24 at 2000, Until Wed02/25/24 at 1806, Pain, severe pain (7-10), Routine documented in this encounter Care Teams Conveyor Monitor Relationship Specialty Start Date End Date Ken Greer MD PCP - General Family Medicine 12/30/23 05/15/24 documented as of this encounter
--- OUTSIDE RECORDS SUMMARY | 2024-12-05 12:39 | XMS_ITS | Encounter Summary ---
Author Organization [facility] [place] [address] Care Team Providers Care Rn Bariatric Name Role Phone Ken Greer MD Primary Care Provider [phone] Reason for Visit * Reason Comments Wound Check * Auth/Cert (Routine) Specialty Diagnoses / Procedures Referred By Nader gardiner Referred To Contact Diagnoses Wound infection Non-healing open wound of heel Ari Renae MD [facility] [place] [address] [facility] Referral ID Status Reason Start Date Expiration Date Visits Re quested Visits Authorized [id number] 1 1 Encounter Details Date Type Department Care Team (Late st Contact Info) Description 02/21/2024 4:31 PM EDT - 02/21/2024 7:26 PM EDT Surgery [place] [address] Ari Renae MD [facility] [place] [address] @AMPUTATION, BELOW-KNEE (WRVU 15.37) Social History Tobacco Use Types Packs/Day Years [...] in a halfway (including now)? No 02/20/2024 DH IPV Inpatient [...] Sign Reading Time Taken Comments Blood Pressure 137/67 02/21/2024 7:00 PM EDT Pulse 68 02/21/2024 6:45 PM EDT Temperature 36.3 ??C (97.3 ??F) 02/21/2024 7:00 PM ED T Respiratory Rate 20 02/21/2024 6:45 PM EDT Oxygen Saturation 92% 02/21/2024 6:45 PM EDT Inhaled Oxygen Concentration - - Weight 86.2 kg (190 lb) 02/18/2024 2:06 PM EDT Height 177.8 cm (5' 10) 02/18/2024 7:20 PM EDT Body Mass Index 27.26 02/18/2024 2:06 PM EDT documented in this encounter Discharge Summaries * Ruby Mcgill APRN - 02/25/2024 1:13 PM EDT Images from the original note were not included. Inpatient - Discharge Summary Patient Name: Gerson [...] 2 months, and he follows with a cognos bi developer for these. He presented to [facility] yesterday after noting fevers and after his VNA identified worsening redness of the left foot. The patient denies any increased pain, numbness, or tingling. He states that at baseline he does not ambulate much. The patient has not had any vascular interventions in the past, although he has been evaluated by avascular surgeon at [facility] who determined that he does not have [...] 194 02/25/2024 Discharge Condition: stable Discharge to: [facility] ([facility]) [address] [place] [address] Future Appointments and Orders Future Appointments and Orders Future Appointments Provider Department Dept Phone 03/09/2024 3:00 PM Apurva Crowley APRN Wound Care at [facility] Arrive at: Technical Sales Representative Area Anticoagulation & Antiplatelet: Anticoagulation: Agent: Heparin 500u [...] sugar diagnostic strips Strip Commonly known as: OneTouch Ultra Test flash glucose sensor Kit Commonly known as: FreeStyle Derick 14 Day Sensor FreeStyle Derick 14 Day Emblem Misc Generic drug: flash glucose scanning reader furosemide 80 mg tablet Commonly known as: Lasix humaLOG KwikPen 100 unit/mL Insulin Pen Generic drug: insulin lispro Replaced by: insulin lispro 100 unit/mL Solution hydrALAZINE 25 mg tablet Commonly known as: Apresoline insulin detemir U-100 100 unit/mL (3 mL) Insulin Pen Commonly known as: Levemir insulin needles (disposable) 31 gauge x 5/16 Needle lancets Mis lidocaine-prilocaine Cream Commonly known as: EMLA multivitamin [...] For any problems or questions please call [phone] For issues on weeknights after 5pm and weekends please call [phone] and ask for the Vascular Fellow software sales consultant. documented in this encounter Discharge Instructions * [...] For any problems or questions please call [phone] For issues on weeknights after 5pm and weekends please call [phone] and ask for the Vascular Fellow software sales consultant. * Attachments The following attachments cannot be sent through Care Everywhere. * Blood Transfusions: General Info (Somali) documented in this encounter Medications at Time [...] as of this encounter Progress Notes * Jordna Sepulveda MD - 02/25/2024 4:05 PM EDT HYPERTENSION/ NEPHROLOGY PROGRESS NOTE PATIENT: Gerosn Bruner : 1965 REASON FOR CONSULTATION: ESRD [...] 02/25/2024 11:56 AM EDT Office of Care Management/Bed Maker Name: Gerson Bruner Presenting Issue: Outpatient Dialysis Update RS Notified [facility] (Spoke w/VIDYA Flores) unit that patient is scheduled for discharge soon. The dialysis unit is ready for the patient on 02/28/2024 @ 0615am The patient will have a schedule of MWF at 0630 Plan: Discharge Summary and last acute dialysis records will be faxed to the strip stamp straightener upon discharge. This office will be available to the patient, Checker Dump Grounds-RN and Artificial Flowers Dyer for further assistance. Dialysis Unit Address: [address] [place] [address] Natalie Marvin Bed Maker * Natalie Marvin - 02/25/2024 11:44 AM EDT Office of Care Management/Bed Maker Patient Name: Gerson Bruner : 1965 Patient has been offered a SNF bed at [facility] Patient will be transported via private vehicle Ambulance will need: Medicare ambulance form completed and signed (MD or Checker Dump Grounds RN/AIRLINE PILOT) Copy of patient demographics [place] Out of Hospital DNR/DNI order, if active No MD to MD report necessary Please call Nursing Report to , ask for strip stamp straightener. Info to accompany patient: Copies of Medication Administration Records and IV sheets for past 10 days. Plan: Bed Maker will be available to the patient and Checker Dump Grounds-RN and/or Social Workerfor further assistance. Patient will be discharged to: [address] Herman Machado * Renu Gil, CUPOLA OPERATOR INSULATION - 02/25/2024 10:27 AM EDT Follow Up [...] Labs 02/25/24 1000 02/25/24 0338 02/24/24 2333 02/24/24201402/24/24 1613 02/24/24 1205 02/24/24 0744 02/24/24 0401 [...] ratio for each meal Renu Gil APRN [facility] Endocrinology Diabetes Management Pager [phone] 35 minute visit was spent evaluating diabetes and treatment plan, reviewing all glucose and insulindata as well as relevant laboratory results , and coordination of care on the inpatient unit including nursing and primary team. * Mary Kenny MD - 02/24/2024 1:23 PM EDT Images from the original note were not included. [facility] NEPHROLOGY/HYPERTENSION DIALYSIS PROGRESS NOTE PATIENT: Gerson [...] BID heparin (porcine) 5,000 Units Subcutaneous Q8H [facility] sevelamer carbonate 1,600 mg Oral TID dilTIAZem [...] asterixis. STUDIES: LABS: CBC: Recent Labs 02/24/24 0602/23/24172402/23/241 WBC 14.1* 14.8* 16.1* HGB 8.4* 9.7* 6.9* PLATELET 445* 476* 388* Chemistry: Recent Labs 02/24/24 0602/23/24 0411 02/22/24 0453 NA 137 137 137 K 4.7 4.9 4.3 CL 97* 98 99 CO2 26 26 28 BUN 25* 34* 25* CREATININE 5.70* 7.00* 5.47* GLUCOSE 123 98 143 Recent Labs 02/24/24 0602/23/2441002/22/24 0453 CALCIUM 9.2 8.5 8.4* MAGNESIUM 0.84 0.83 0.81 PHOS 4.8* 5.5* 4.4 ABG (Arterial Blood Gas) Recent Labs 02/18/24 1516 LACTATEVEN 1.0 VBG (Venous Blood Gas) Recent Labs 02/18/24 1516 PHVEN 7.39 [id number] 48 PO2VEN 22* SGO1SXS 28.3 LACTATEVEN 1.0 Mixed Venous Sat No results for input(s): C6UODD9 in the last 168 hours. LFT's: Recent [...] Component Value Units Date/Time MRSA PCR Screen ([facility]CGP/APD/NLH) [[id number]] Collected: 02/18/242301 Lab Status: Final result Specimen: Nasopharyngeal Swab Updated: 04/27/24 1723 MRSA Result Negative MRSA Interp -- Methicillin-resistant Staphylococcus aureus (MRSA) is NOT DETECTED The MRSA target DNA sequences (mec and SCC) were not detected within the acceptable ranges using the Xpert MRSA NxG on the GeneXpert Dx System (Notizza). This suggests the absence of MRSA in the patient specimen submitted for testing. This test is cleared by the U.S. Food and Drug Administration for clinical use and its performance characteristics have been verified by the [facility] Genomics [facility] Laboratory at [facility]. This result does not rule out the presence of any other organisms. Rare false negative results may occur if MRSA is present at low concentrations with much higher concentrations of other organisms including MRSE or S. aureus with an empty SCC cassette. Comment: [VERIFIED DATE]02.19.24 Verified By:Shaina Goff (Electronic Signature) Blood culture [[id number]] Collected: 02/18/24 1500 Lab Status: Preliminary result Specimen: Blood Updated: 02/19/24 2302 Blood Culture No growth at 1 day. Blood culture [[id number]] Collected: 02/18/24 1415 Lab Status: Preliminary result Specimen: Blood from Antecubital, Right Updated: 02/19/24 1501 Blood Culture No growth at 1 day. IMAGING: N/A ASSESSMENT/IMPRESSIONS + PLAN: 1) ESRD on HD - Impressions: No significant indications for HD. Patient dialyzed yesterday according to his MWF schedule. - Access: LUE AVF - Schedule: MWF; Next dialysis: Saturday 02/24 - Prescription for [...] with apodiatrist for these. He presented to [facility] yesterday after noting fevers and after [...] sitting upright in bed with extra timeto dust puller bandages. 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 Vision: WFL [...] 2-3 times/wk Total Minutes, Occupational Therapy: 59 ([phone] 2xSelf Care, 2xFunc Act) Pager: [phone] Reggie Lopez, MIGUEL ÁNGEL 02/24/2024 Occupational Therapy Rehabilitation [...] 2 months, and he follows with a cognos bi developer for these. He presented to [facility] yesterday after noting fevers and after his VNA identified worsening redness of the left foot. The patient denies any increased pain, numbness, or tingling. He states that at baseline he does not ambulate much. The patient has not had any vascular interventions in the past, although he has been evaluated by avascular surgeon at [facility] who determined that he does not have [...] 15.37) performed by Ari Renae MD at [facility] MAIN OR PRO AMPUTATION LOW LEG, CIRCULAR Left 02/18/2024 @AMPUTATION, BELOW-KNEE, OPEN, GUILLOTINE (WRVU 9.79) performed by Ari Renae MD at [facility] MAIN OR PRO ANASTOMOSIS, AV, ANY SITE Left 09/05/2018 AV FISTULA CREATION, DIRECT HEMODIALYSIS, ANY SITE, EG GABRIEL FISTULA UPPER EXTREMITY (WRVU 11.9) performed by Scout Reese MD at [facility] MAIN OR PRO COLONOSCOPY, REMV THAI, SNARE N/A 09/26/2019 COLONOSCOPY, POLYPECTOMY, REMOVAL LESION BY SNARE (WRVU 4.67) performed by Kaye Gibbs MD at [facility] ENDOSCOPY Active Non-Hospital Problems Diagnosis TIA (transient [...] tam PT, Doctor of Physical Therapy Pager: [phone] Physical Therapy Inpatient Rehabilitation Department * Felton [...] 2 months, and he follows with a cognos bi developer for these. He presented to [facility] yesterday after noting fevers and after his VNA identified worsening redness of the left foot. The patient denies any increased pain, numbness, or tingling. He states that at baseline he does not ambulate much. The patient has not had any vascular interventions in the past, although he has been evaluated by avascular surgeon at [facility] who determined that he does not have [...] Oral BID acetaminophen 975 mg Oral Q6H [facility] carvediloL 12.5 mg Oral BID vitamin B Complex-vitamin C-folic Acid 1 tablet Oral Daily cholecalciferol 1,000 Units Oral Daily calcium carbonate 500 mg Oral TID amLODIPine 10 mg Oral Daily aspirin 81 mg Oral Daily atorvastatin 40 mg Oral QPM pregabalin 100 mg Oral BID sodium chloride 0.9 % (flush) 5 mL Intravenous BID heparin (porcine) 5,000 Units Subcutaneous Q8H [facility] sevelamer carbonate 1,600 mg Oral TID dilTIAZem [...] Statin - Renal diet 2 GM NA; / CHO counting level 4 Felton Márquez MD 02/24/2024 Pager: [phone] Associated attestation - Ari Renae MD - 02/24/2024 3:16 PM EDT I have seen and examined the patient, providing olivares components as outlined below. I have reviewed the resident???s above note; my evaluation of the patient is below: Jeferson JONES wound looks great. Can DC antibx Needs [...] from the original note were not included. [facility] NEPHROLOGY/HYPERTENSION DIALYSIS PROGRESS NOTE PATIENT: Gerson Bruner : 1965 Ken Greer MD REASON FOR CONSULTATION: ESRD Management INTERVAL HISTORY: S/p L ROBERT Patient seen and examined during dialysis. He [...] PAULIE insulin lispro 0-8 Units Subcutaneous TID [START ON 02/24/2024] insulin glargine (Lantus;Semglee) (100 [...] BID heparin (porcine) 5,000 Units Subcutaneous Q8H [facility] sevelamer carbonate 1,600 mg Oral TID dilTIAZem [...] 434* -- 510* Chemistry: Recent Labs 02/23/2441002/22/24 0453 02/21/24 0602 NA 137 137 139 [...] Gas) Recent Labs 02/18/24 1516 PHVEN 7.39 [id number] 48 PO2VEN 22* TTG2THO 28.3 LACTATEVEN 1.0 Mixed Venous Sat No results for input(s): Z6WRRW8 in the last 168 hours. LFT's: Recent [...] Component Value Units Date/Time MRSA PCR Screen ([facility]P/APD/NLH) [[id number]] Collected: 02/18/24 2302 Lab Status: Final result Specimen: Nasopharyngeal Swab Updated: 02/19/24 1723 MRSA Result Negative MRSA Interp -- Methicillin-resistant Staphylococcus aureus (MRSA) is NOT DETECTED The MRSA target DNA sequences (mec and SCC) were not detected within the acceptable ranges using the Xpert MRSA NxG on the GeneXpert Dx System (Notizza). This suggests the absence of MRSA in the patient specimen submitted for testing. This test is cleared by the U.S. Food and Drug Administration for clinical use and its performance characteristics have been verified by the Clinical Genomics [facility] Laboratory at [facility]. This result does not rule out the presence of any other organisms. Rare false negative results may occur if MRSA is present at low concentrations with much higher concentrations of other organisms including MRSE or S. aureus with an empty SCC cassette. Comment: [VERIFIED DATE]02.19.24 Verified By:Shaina Goff (Electronic Signature) Blood culture [[id number]] Collected: 02/18/24 1500 Lab Status: Preliminary result Specimen: Blood Updated: 02/19/24 2302 Blood Culture No growth at 1 day. Blood culture [[id number]] Collected: 02/18/24 1415 Lab Status: Preliminary result [...] patient. Patrica Greene MD Regional Team pager [phone] * Reggie Lopez, OT - 02/23/2024 1:35 [...] SpO2 76 bpm SpO2 94 % Pager: [phone] Reggie Lopez OT 02/23/2024 Occupational Therapy Rehabilitation Department * Zandra [...] physical therapy evaluation when medically appropriate/available. Zandra Tucker, PT, Doctor of Physical Therapy Pager: [phone] Physical Therapy Inpatient Rehabilitation Department * Jean [...] 2 months, and he follows with a cognos bi developer for these. He presented to [facility] yesterday after noting fevers and after his VNA identified worsening redness of the left foot. The patient denies any increased pain, numbness, or tingling. He states that at baseline he does not ambulate much. The patient has not had any vascular interventions in the past, although he has been evaluated by avascular surgeon at [facility] who determined that he does not have [...] Medications: insulin lispro 0-6 Units Subcutaneous Q4H [facility] [START ON 02/24/2024] insulin glargine (Lantus;Semglee) (100 unit/mL) subcutaneous injection 17 UnitsSubcutaneous Daily polyethylene glycoL (MIRALAX) oral powder 17 g Oral Daily senna-docusate 2 tablet Oral BID acetaminophen 975 mg Oral Q6H [facility] insulin lispro 0-15 Units Subcutaneous TID carvediloL 12.5 mg Oral BID WC piperacillin-tazobactam [...] BID heparin (porcine) 5,000 Units Subcutaneous Q8H [facility] sevelamer carbonate 1,600 mg Oral TID dilTIAZem [...] 388* 434* -- 510* Recent Labs 02/23/24 04102/22/24 0453 02/21/24 0602 NA 137 137 139 [...] Statin - Renal diet 2 GM NA; 90/90/90 CHO counting level 4 Jean Henning MD 02/23/2024 Pager: [phone] * Renu Gil, CUPOLA OPERATOR INSULATION - 02/23/2024 6:44 AM EDT Follow Up [...] ratio for each meal Renu Gil APRN [facility] Endocrinology Diabetes Management Pager [phone] 35 minute visit was spent evaluating diabetes and treatment plan, reviewing all glucose and insulindata as well as relevant laboratory results , and coordination of care on the inpatient unit including nursing and primary team. * Mary Kenny MD - 02/22/2024 3:51 PM EDT Images from the original note were not included. [facility] NEPHROLOGY/HYPERTENSION DIALYSIS PROGRESS NOTE PATIENT: Gerson [...] Subcutaneous TID carvediloL 12.5 mg Oral BID WC piperacillin-tazobactam [...] CL 99 101 101 CO2 28 26 BUN 25* 46* 37* CREATININE 5.47* 8.39* 6.78* GLUCOSE 143 96 94 Recent Labs 02/22/24 0453 02/21/24 0602 02/20/24 0521 CALCIUM 8.4* 9.2 9.0 MAGNESIUM 0.81 0.93 -- PHOS 4.4 5.2* -- ABG (Arterial Blood Gas) Recent Labs 02/18/24 1516 LACTATEVEN 1.0 VBG (Venous Blood Gas) Recent Labs 02/18/24 1516 PHVEN 7.39 [id number] 48 PO2VEN 22* VER6ISE 28.3 LACTATEVEN 1.0 Mixed Venous Sat No results for input(s): M7CIRV2 in the last 168 hours. LFT's: Recent [...] Component Value Units Date/Time MRSA PCR Screen ([facility]P/APD/NLH) [[id number]] Collected: 02/18/242301 Lab Status: Final result Specimen: Nasopharyngeal Swab Updated: 02/19/241722 MRSA Result Negative MRSA Interp -- Methicillin-resistant Staphylococcus aureus (MRSA) is NOT DETECTED The MRSA target DNA sequences (mec and SCC) were not detected within the acceptable ranges using the Xpert MRSA NxG on the GeneXpert Dx System (Notizza). This suggests the absence of MRSA in the patient specimen submitted for testing. This test is cleared by the U.S. Food and Drug Administration for clinical use and its performance characteristics have been verified by the Clinical Genomics [facility] at [facility]. This result does not rule out the presence of any other organisms. Rare false negative results may occur if MRSA is present at low concentrations with much higher concentrations of other organisms including MRSE or S. aureus with an empty SCC cassette. Comment: [VERIFIED DATE]02.19.24 Verified By:Shaina Goff (Electronic Signature) Blood culture [[id number]] Collected: 02/18/24 1500 Lab Status: Preliminary result Specimen: Blood Updated: 02/19/24 2302 Blood Culture No growth at 1 day. Blood culture [[id number]] Collected: 02/18/24 1415 Lab Status: Preliminary result [...] 2 months, and he follows with a cognos bi developer for these. He presented to [facility] yesterday after noting fevers and after his VNA identified worsening redness of the left foot. The patient denies any increased pain, numbness, or tingling. He states that at baseline he does not ambulate much. The patient has not had any vascular interventions in the past, although he has been evaluated by avascular surgeon at [facility] who determined that he does not have [...] - Renal diet 2 GM NA Felton Márquez MD 02/22/2024 Pager: [phone] * Hector Diaz MD - 02/22/2024 7:38 [...] you, please page the Regional Anesthesia Team ([phone]) with any questions or concerns. Thank you for the opportunity to have participated in the care of this patient. Update 12noon: Catheter bolus given of 10ml 2% lidocaine with spread visualized around CP/TN with ultrasound, redressed and infusion continued. Hector Diaz MD 02/22/2024 7:30am Regional Anesthesia Fellow Regional Anesthesia team pager [phone] * Elle Finn RN - 02/21/2024 9:59 [...] brought in at patient's bedside. Jessi DASILVA 193) Handoff accepted to receiving floor RN. Jessi RN 1999) Ambit pump here and APS able to begin infusion. Awaiting transportation. Jessi RN * Annette Rodriguez RN - 02/21/2024 6:08 PM EDT Arrived from OR in bed. Attached to monitors and alarms set appropriately for patient. Left leg wrapped in ja bandage, CDI Hand off to VIDYA Calvillo * Mary Kenny MD - 02/21/2024 1:39 PM EDT Images from the original note were not included. [facility] NEPHROLOGY/HYPERTENSION DIALYSIS PROGRESS NOTE PATIENT: Gerson [...] Daily insulin lispro 0-9 Units Subcutaneous Q4H [facility] insulin lispro 0-15 Units Subcutaneous TID WC vancomycin 1 g Intravenous Once [START ON [...] LABS: CBC: Recent Labs 02/21/24 0602 02/20/24 0521 02/19/24 0528 WBC 13.0* 11.4* 12.9* HGB 8.0* [...] Gas) Recent Labs 02/18/24 1516 PHVEN 7.39 [id number] 48 PO2VEN 22* KJH4EQY 28.3 LACTATEVEN 1.0 Mixed Venous Sat No results for input(s): L1JESS6 in the last 168 hours. LFT's: No [...] Component Value Units Date/Time MRSA PCR Screen ([facility]/APD/NLH) [[id number]] Collected: 02/18/24 2302 Lab Status: Final result Specimen: Nasopharyngeal Swab Updated: 02/19/24 1723 MRSA Result Negative MRSA Interp -- Methicillin-resistant Staphylococcus aureus (MRSA) is NOT DETECTED The MRSA target DNA sequences (mec and SCC) were not detected within the acceptable ranges using the Xpert MRSA NxG on the GeneXpert Dx System (Notizza). This suggests the absence of MRSA in the patient specimen submitted for testing. This test is cleared by the U.S. Food and Drug Administration for clinical use and its performance characteristics have been verified by the Clinical Genomics [facility] Laboratory at [facility]. This result does not rule out the presence of any other organisms. Rare false negative results may occur if MRSA is present at low concentrations with much higher concentrations of other organisms including MRSE or S. aureus with an empty SCC cassette. Comment: [VERIFIED DATE]02.19.24 Verified By:Shaina Goff (Electronic Signature) Blood culture [[id number]] Collected: 02/18/24 1500 Lab Status: Preliminary result Specimen: Blood Updated: 02/19/24 2302 Blood Culture No growth at 1 day. Blood culture [[id number]] Collected: 02/18/24 1415 Lab Status: Preliminary result [...] and HTN Fellow Associated attestation - Jordan Sepluveda MD - 02/21/2024 3:49 PM EDT Patient [...] 2 months, and he follows with a cognos bi developer for these. He presented to [facility] yesterday after noting fevers and after his VNA identified worsening redness of the left foot. The patient denies any increased pain, numbness, or tingling. He states that at baseline he does not ambulate much. The patient has not had any vascular interventions in the past, although he has been evaluated by avascular surgeon at [facility] who determined that he does not have [...] control diet Ruby Mcgill APRN 02/21/2024 Pager: [phone] * Radha Biswas MD - 02/20/2024 2:25 PM EDT Images from the original note were not included. [facility] NEPHROLOGY/HYPERTENSION DIALYSIS PROGRESS NOTE PATIENT: Gerson [...] slight asterixis. STUDIES: LABS: CBC: Recent Labs 02/20/2452002/19/2452702/18/24 1415 WBC 11.4* 12.9* 13.8* HGB 7.6* 8.0* 7.2* PLATELET 448* 371* 440* Chemistry: Recent Labs 02/20/2452002/19/24 0502/18/24 1415 NA 139 137 135 K 4.2 3.8 3.7 CL 101 100 97* CO2 BUN 37* 27* 18 CREATININE 6.78* 4.81* 3.48* GLUCOSE 94 164 211* Recent Labs 02/20/2452002/19/2452702/18/24 1415 CALCIUM 9.0 8.8 8.6 ABG (Arterial Blood Gas) Recent Labs 02/18/24 1516 LACTATEVEN 1.0 VBG (Venous Blood Gas) Recent Labs 02/18/24 1516 PHVEN 7.39 [id number] 48 PO2VEN 22* JOE0LLO 28.3 LACTATEVEN 1.0 Mixed Venous Sat No results for input(s): I1XXPJ1 in the last 168 hours. LFT's: No [...] Component Value Units Date/Time MRSA PCR Screen ([facility]/APD/NLH) [[id number]] Collected: 02/18/24 2302 Lab Status: Final result Specimen: Nasopharyngeal Swab Updated: 02/19/24 1723 MRSA Result Negative MRSA Interp -- Methicillin-resistant Staphylococcus aureus (MRSA) is NOT DETECTED The MRSA target DNA sequences (mec and SCC) were not detected within the acceptable ranges using the Xpert MRSA NxG on the GeneXpert Dx System (Notizza). This suggests the absence of MRSA in the patient specimen submitted for testing. This test is cleared by the U.S. Food and Drug Administration for clinical use and its performance characteristics have been verified by the [facility] at [facility]. This result does not rule out the presence of any other organisms. Rare false negative results may occur if MRSA is present at low concentrations with much higher concentrations of other organisms including MRSE or S. aureus with an empty SCC cassette. Comment: [VERIFIED DATE]02.19.24 Verified By:Shaina Goff (Electronic Signature) Blood culture [[id number]] Collected: 02/18/24 1500 Lab Status: Preliminary result Specimen: Blood Updated: 02/19/24 2302 Blood Culture No growth at 1 day. Blood culture [[id number]] Collected: 02/18/24 1415 Lab Status: Preliminary result [...] M.H.A., M.A. PGY-V Nephrology-Hypertension Fellow Page # [phone] [facility] [address] 2nd floor, Technical Sales Representative [address] [place] [address] Associated attestation - Fareed Bryant MD - [...] 2 months, and he follows with a cognos bi developer for these. He presented to [facility] yesterday after noting fevers and after his VNA identified worsening redness of the left foot. The patient denies any increased pain, numbness, or tingling. He states that at baseline he does not ambulate much. The patient has not had any vascular interventions in the past, although he has been evaluated by avascular surgeon at [facility] who determined that he does not have [...] BID insulin lispro 2-12 Units Subcutaneous Q4H [facility] insulin glargine (Lantus;Semglee) (100 unit/mL) subcutaneous injection [...] control diet Ruby Mcgill APRN 02/20/2024 Pager: [phone] * Ruby Mcgill APRN - 02/19/2024 1:42 [...] 2 months, and he follows with a cognos bi developer for these. He presented to [facility] yesterday after noting fevers and after his VNA identified worsening redness of the left foot. The patient denies any increased pain, numbness, or tingling. He states that at baseline he does not ambulate much. The patient has not had any vascular interventions in the past, although he has been evaluated by avascular surgeon at [facility] who determined that he does not have [...] control diet Ruby Mcgill APRN 02/19/2024 Pager: [phone] * Ke Carter, [facility] ED - 02/18/2024 10:51 PM EDT Clinical Pharmacist Note - VancFD Gerson Bruner [id number] Gerson Bruner is a 58 y.o. [...] Alternately, during off-hours (9p-7a) you may call [phone] to contact a pharmacist. Ke Carter RPH [...] 7:33 PM EDT 1924: Patient [facility] from [facility]. Vital signs stable. Alarms audible [...] 2 months, and he follows with a cognos bi developer for these. He presented to [facility] yesterday after noting fevers and after his VNA identified worsening redness of the left foot. The patient denies any increased pain, numbness, or tingling. He states that at baseline he does not ambulate much. The patient has not had any vascular interventions in the past, although he has been evaluated by avascular surgeon at [facility] who determined that he does not have [...] 11.9) performed by Scout Reese MD at [facility] MAIN OR PRO COLONOSCOPY, REMV LESN, SNARE N/A 09/26/2019 COLONOSCOPY, POLYPECTOMY, REMOVAL LESION BY SNARE (WRVU 4.67) performed by Kaye Gibbs MD at [facility] ENDOSCOPY Functional Status: Lives at home, primarily [...] tablet 3 FREESTYLE DERICK 14 DAY READER Misc Use to continuously monitor blood glucose. Scan [...] Take 1 tablet by mouth daily. Insulin Theriot, Disposable, 31 X 5/16 Needle Inject 1 [...] CREATININE 3.48* Last 3 Coags Recent Labs 02/18/24 1415 PT 13.2* INR 1.2 PTT 32 [...] Artery 190 Dorsalis Pedis (Ankle) Artery >240 [place]-Biphasic Posterior Tibial (Ankle) Artery >240 Monophasic Great [...] to him and he was recently at [facility] and [facility] and was told that he likely needs an amputation of his left foot. He reports that he had a CT scan at [facility] yesterday and was told that he has osteomyelitis in the heel. Patient left that hospital as hewanted to get his care through [facility] and drove here today. Does report having [...] have questions please contact the health career orientation teacher that requested your imaging first. Request For 2nd Read CT Lower Extremity (Results Pending) ED Course as of 02/18/247 WedFeb 18, 2024 172 Glucose Lvl(!): 211 1729 Creatinine(!): 3.48 On dialysis Wednesday, Wednesday, Wednesday 172 Hemoglobin(!): 7.2 1728 WBC(!): 13.8 Procedures Assessment and Plan: 58 y.o. male with poorly controlled diabetes, tobacco abuse, end-stage renal disease, on dialysis, Wednesday and Wednesday, and peripheral vascular disease presents to the emergency department with wounds on his bilateral heels. Reports the wounds have both been there for several months howeverrecently they have gotten much worse. He was recently at [facility] for thewound to his left foot and was recommended that he come to [facility] for potential amputation as he has significant [...] Magaña PA 02/18/241905 * Maria A Mallory, CUPOLA OPERATOR INSULATION - 02/18/2024 1:58 PM EDT In-Triage Brief Provider Note: Brief HPI: 58-year-old male with significant complex past medical history presents after being seen at [facility] yesterday and was advised to come directly to [facility] due to concern of osteomyelitis and possible requiring amputation secondary to severe PVD however was unable to get to [facility] until today. Scanned note from patient's [facility] visit yesterday indicates that patient was also recently hospitalized at [facility]. CT images from an [facility] have been pushed to [facility]. Patient is also a MWF dialysis patient. Patient had fevers yesterday. Patient [...] require medical follow up. Thu Holguin MA, [facility] Mental Chemo Services - BIT (Behavioral Intervention Team) Dept. of Psychiatry - Inpatient Psych. Services BIT Pager: [phone] * Consult Note - Candi Nowak RN [...] chat or the wound care team at [phone] or pager [phone] with skin and wound care concerns or questions. * Care Management Discharge - Megan Green RN - 02/25/2024 11:20 AM EDT CARE MANAGEMENT FINAL DISCHARGE NOTE Chart reviewed, care reviewed with primary team and at interdisciplinary rounds. Patient is medically ready for discharge to [facility]. Needs for Transition of Care: Plan for discharge is: Jail Facility / Swing Outpatient Agency/Support Group Needs: None Home Health Services: Registered Nurse, Physical Therapy, Artificial Flowers Dyer, Occupational Therapy Agency Referrals & Follow-up Care: Contact information for follow-up [facility] [address] [place] [id number] [facility] [address] [facility] [phone] Transportation: is comfortable bringing the patient to [facility] and to and from dialysis MWF Wheelchair [...] patient to [place] and to dialysis. PATRICIA Leigh,police and fire dispatcher Team Case Management [phone] Pager #[phone] * Plan of Care - Zita Michelle [...] Impairment (Lower Extremity Amputation) Goal: Optimal Mobility Buckner and Safety Outcome: Ongoing (Interventions Implemented as [...] SUMMARY: A&Ox4, VSS on RA. Patient is CHOCTAW. Patient reports severe intermittent sharp, shooting pain [...] Impairment (Lower Extremity Amputation) Goal: Optimal Mobility Buckner and Safety Outcome: Ongoing (Interventions Implemented as [...] to: discuss discharge planning needs. provide the [facility], Office of Care Management letter from the Diesel Engine Fitter pertaining to rehab referrals. provide a letter describing our affiliations within the [facility] and educate about their right to choose where referrals are sent. provide the [facility] Star Quality Rating handout. review the different levels of rehab including SNF, swing, and acute. provide a list of facilities within their preferred geographic area. request that they provide at least three choices for referral. They have requested referrals to: [facility] ([facility]) [address] [place] [address] Note routed to a Bed Maker who will communicate referrals to facilities and [...] of the shift (around 100F) with scheduled MD lorenzo Courtney aware. Pt reports that he needs to have a BM and that he needs to get to the toilet. Coverage Analyst educated patient on the increased fall risk, NWB of the LLE and needing a offloading boot for RLE. Pt was frustrated and did not understand [facility] Pt was eventually agreeable to stand-pivot with [...] Impairment (Lower Extremity Amputation) Goal: Optimal Mobility Buckner and Safety Outcome: Ongoing (Interventions Implemented as [...] SUMMARY: A&Ox4, VSS on RA. Patient is CHOCTAW. Patient reports severe intermittent sharp, shooting pain in left residual limb. Ambit pump in place until ~15:00, removed at bedside by . Ambit pump site SALVAGE MECHANIC. Scheduled tylenol and PRN pain medications given, [...] fall risk. Will pass this along to welder 2nd shift RN. LLE dressing C/D/I. RLE heel wound [...] Impairment (Lower Extremity Amputation) Goal: Optimal Mobility Buckner and Safety Outcome: Ongoing (Interventions Implemented as [...] Home w/ Services Hemodialysis Needs: Resumption Location: [facility] HD Chair Confirmed: 1 Home Health Services: Registered Nurse, Physical Therapy, Artificial Flowers Dyer, Occupational Therapy Agency Referrals: [facility] [address] [place] [address] [facility] [address] [place] [address] P: [phone] F: [phone] Transportation: family or friend will provide Barriers [...] [phone] * Consult Note - Thu Holguin [facility] - 02/23/2024 2:00 PM EDT MIGDALIA (Behavioral Intervention Team) MIGDALIA [facility] saw this patient briefly today - [...] with him this week. Thu Holguin MA, [facility] Mental Chemo Services - BIT (Behavioral Intervention Team) Dept. of Psychiatry - Inpatient Psych. Services BIT Pager: [phone] * Consult Note - Graeme Younger RPH - 02/23/2024 11:01 AM EDT Clinical Pharmacist Note-Vanc Gerson Bruner [id number] 1965 Gerson Bruner is a 58 y.o. [...] have. Alternately, during off-hours you may call [phone] to contact a pharmacist. Graeme Younger RPH Pager [phone] * Plan of Care - Zita Michelle [...] Impairment (Lower Extremity Amputation) Goal: Optimal Mobility Buckner and Safety Outcome: Ongoing (Interventions Implemented as [...] as Appropriate) * Plan of Ponce - Sara Pang RN - 02/22/2024 4:52 [...] 2 months, and he follows with a cognos bi developer for these. He presented to [facility] yesterday after noting fevers and after [...] 15.37) performed by Ari Renae MD at [facility] MAIN OR PRO AMPUTATION LOW LEG, CIRCULAR Left 02/18/2024 @AMPUTATION, BELOW-KNEE, OPEN, GUILLOTINE (WRVU 9.79) performed by Ari Renae MD at [facility] MAIN OR PRO ANASTOMOSIS, AV, ANY SITE Left 09/05/2018 AV FISTULA CREATION, DIRECT HEMODIALYSIS, ANY SITE, EG GABRIEL FISTULA UPPER EXTREMITY (WRVU 11.9) performed by Scout Reese MD at [facility] MAIN OR PRO COLONOSCOPY, REMV LESN, SNARE N/A 09/26/2019 COLONOSCOPY, POLYPECTOMY, REMOVAL LESION BY SNARE (WRVU 4.67) performed by Kaye Gibbs MD at [facility] ENDOSCOPY Social History: Patient lives currently at [...] Discharge planning. Total Minutes, Occupational Therapy: 39 ([id number]) 2017 OT Evaluation Code Rationale: Diagnosis & [...] and measurable assessment of functional outcome. Pager: [phone] Reggie Lopez OT 02/22/2024 Occupational Therapy Rehabilitation Department * Consult Note - Thu Holguin [facility] - 02/22/2024 10:50 AM EDT MIGDALIA (Behavioral Intervention Team) [facility] tried to see patient this morning though was busy with staff and company. Returned this afternoon and he was asleep. Will plan to see him tomorrow. Thu Holguin MA, [facility] Mental Chemo Services - MIGDALIA (Behavioral Intervention Team) Dept. of Psychiatry - Inpatient Psych. Services BIT Pager: [phone] * Plan of Care - Elle Finn [...] Impairment (Lower Extremity Amputation) Goal: Optimal Mobility Buckner and Safety Outcome: Ongoing (Interventions Implemented as [...] Renae MD - 02/21/2024 4:38 PM EDT [facility] Operative Note Patient Name: Gerson Bruner : [id number] MR#: [id number] Case Date: 02/21/2024 Surgeon: Surgeon(s) and Role: [...] veins was controlled by oversewing in a hransh-ei-qhadf fashion with 3-0 silk.The tibia was circumferentially [...] veins was controlled by oversewing in a qicyre-lo-lcfbd fashion with 3-0 silk. Redundant subcutaneous tissue on the posterior flap was removed with the amputationknife. Hemostasis was then achieved by use of bpprsb-ps-kppoi stitches. We then used interrupted 2-0 Vicry [...] 02/22/2024 * Consult Note - Thu Holguin [facility] - 02/21/2024 12:00 PM EDT BIT (Behavioral Intervention Team) Patient was out of his room at dialysis when this clinician went to see him. Spoke briefly to his . Made plan to see the patient likely tomorrow. Reviewed chart. Thu Holguin MA, [facility] Mental Chemo Services - BIT (Behavioral Intervention Team) Dept. of Psychiatry - Inpatient Psych. Services BIT Pager: [phone] * Consult Note - Renu Gil APRN [...] management and to provide a review of terminal gauger diabetes care. Diabetes History: Gerson Bruner has [...] care for your patient Renu Gil APRN [facility] Endocrinology Diabetes Management Pager [phone] minutes of this 80 minute visit [...] Resting between care. PLAN MOVING FORWARD: Dialysis M-W-F Revision of LLE amputation, scheduled for this [...] of Care - Ruby Dolan RN - 02/20/2024 6:37 [...] 2 months, and he follows with a cognos bi developer for these. He presented to [facility] yesterday after noting fevers and after his VNA identified worsening redness of the left foot. The patient denies any increased pain, numbness, or tingling. He states that at baseline hedoes not ambulate much. The patient has not had any vascular interventions in the past, although he has been evaluated by avascular surgeon at [facility] who determined that he does not have [...] surrogate would be surrogate decision maker per [place] surrogate decision making law. (Only good for 180 days) Any patient receiving care in [place] must abide by [place] law. The hierarchy for surrogate decision making [...] (i) The agent with financial power of erisa attorney or a conservator appointed in accordance [...] tub/shower, shower chair Home Address confirmed as: [address] [facility] [address] Social & Family Supports: All names listed below confirmed with patient as current and correct Extended Emergency Contact Information Primary Emergency Contact: Melissa Silva Address: [address] [place] [address] [address] [place] [address] [facility] Mobile Relation: Spouse Current Care Provided by: [...] need it? Prescription Coverage: Yes Preferred Pharmacy: [id number] - [place], [place] - [address] [facility] [address] [address] [facility] [address] Hours: Not open 24 hours [place] Status: Patient is a : No Primary Care Provider listed: Ken Greer MD [phone] Greer is leaving practice soon and they will be looking for another provider Patient/Caregiver Goals of Treatment: To go home Potential Needs for Transition of Care: home health care Agency Referrals: Resumption of Care [facility] [address] [place] [address] [facility] [address] [place] [address] P: [phone] F: [phone] Transportation: no concerns Transportation Anticipated: family or [...] of the paperwork. [facility] office can help. Will also look into SW/LT and see if they can help Pt goes to [facility] for dialysis Plan: Pending VNA order for RN/PT/OT and SW A member of the Care Management team will continue to monitor progress, follow for continuity of care and assist with transition of care planning. Suzy Manrique RN Care Management [phone] * Plan of Care - Allie Tong [...] from the original note were not included. [facility] NEPHROLOGY/HYPERTENSION DIALYSIS CONSULT NOTE PATIENT: Gerson [...] there are several things to note: ESRD [place] Kidney Disease: Diabetic nephropathy per patient Dialysis Center and Schedule: Dialyzes in [facility]. Dialyzes MW. Last HD on Saturday 02/17. Has been a dialysis patient for 3 years. Previously used to dialyze in [facility] Metal Can Inspector: Patient unsure who primary edger runner is Access: ROSIBELE AVF placed about 3 [...] Gas) Recent Labs 02/18/24 1516 PHVEN 7.39 [id number] 48 PO2VEN 22* HHS7PGY 28.3 LACTATEVEN 1.0 Mixed Venous Sat No results for input(s): C4ELAD1 in the last 168 hours. LFT's: No [...] this patient. 02/19/2024 Radha Biswas M.D., M.P.H., M.HBlake., M.A. PGY-V Nephrology-Hypertension Fellow Page # [phone] [facility] [facility] [address] 2nd floor, Technical Sales Representative [address] [place] [address] Associated attestation - Fareed Bryant MD - [...] eventually presented to the ED here at [facility], with bilateral heel ulcers and gangrene to the left foot. 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 PMH significant for Type II DM, TIA, HLD, CKD, lumbar disk rupture, proteinuria, anemia, leg cramps, smoker, hearing loss, LE arterial occlusive disease, and primary wheelchair level of mobility. He arrived from PACU to [facility] approximately 2100 on 02/17, s/p LLE [...] to dialysis M-W-F near his home in [place]. Fistula present in the LUE, he reports [...] undergone multiple prior debridements, most recently at [facility]. He is unsure who has previously debrided these wounds. He reports they do not heel and recently his LLE has become progressively painful. He has been having fevers. Per chart review his L heel infection began in 11/2023. He was admitted for cellulitis without concern for osteomyelitis at [facility] on 12/19/23. He was managed with debridements by wound care and podiatry and received IV abx. He has seen multiple vascular and orthopaedic teams as well as wound care andpodiatry teams. He was most recently debrided at [facility]. He prefers to get his care at [facility] and thus presents here as transfer after presenting to [facility] yesterday and being told he has [...] 11.9) performed by Scout Reese MD at [facility] MAIN OR PRO COLONOSCOPY, REMV LESN, SNARE N/A 09/26/2019 COLONOSCOPY, POLYPECTOMY, REMOVAL LESION BY SNARE (WRVU 4.67) performed by Kaye Gibbs MD at [facility] ENDOSCOPY Allergies Allergen Reactions Clindamycin Swelling. Gabapentin [...] tablet 3 FREESTYLE DERICK 14 DAY READER [facility] Use to continuously monitor blood glucose. Scan [...] daily (before meals). Dx code 250.02 uses [id number] each 11 hydrALAZINE (APRESOLINE) 25 mg Tablet [...] Take 1 tablet by mouth daily. Insulin Theriot, Disposable, 31 X 5/16 Needle Inject 1 [...] sign off at this time. Please page [phone] with questions or concerns. Dany Gambino MD Orthopaedic Surgery, [phone] * Op Note - Nicolas Melgar MD - 02/18/2024 6:56 PM EDT [facility] Operative Note Patient Name: Gerson Bruner : [id number] MR#: [id number] Case Date: 02/18/2024 Surgeon: Surgeon(s) and Role: [...] PM EDT Amputation Low Leg Thru Tib/Fib (25830) 02/21/2024 4:09 PM EDT Left guillotine amputation [...] PATHOLOGY REPORT Routine 02/18/2024 7:02 PM EDT AMPUTATION, BELOW-KNEE, OPEN, GUILLOTINE Routine 02/18/2024 5:50 [...] Glucose, POC 223(H) 65 - 199 mg/dL [facility] Comment: Supplemental ranges: <140 mg/dL before meals <180 mg/dL all other times of the day Blood 02/25/2024 2:02 PM EDT 02/25/2024 2:02 PM EDT Ari Renae MD POINT OF CARE TEST O CARMELITA [facility] [place] [address] * POCT Glucose (02/25/2024 12:19 PM EDT) Glucose, POC 152 65 - 199 mg/dL [facility] Comment: Supplemental ranges: <140 mg/dL before meals <180 mg/dL all other times of the day Blood 02/25/2024 12:1 9 PM EDT 02/25/2024 12:19 PM EDT Ari Renae MD POINT OF CARE TEST O CARMELITA Performing Organization Address City/[facility]/ZIP Co de Phone Number [facility] [place] [address] * POCT Glucose (02/25/2024 10:00 AM EDT) Glucose, POC 113 65 - 199 mg/dL [facility] Comment: Supplemental ranges: <140 mg/dL before meals <180 mg/dL all other times of the day Blood 02/25/2024 10:0 0 AM EDT 02/25/2024 10:00 AM EDT Ari Renae MD POINT OF CARE TEST O RDERAKEREN Performing Organization Address City/[facility]/ZIP Co de Phone Number [facility] [place] [address] * POCT Glucose (02/25/2024 3:38 AM EDT) Glucose, POC 163 65 - 199 mg/dL [facility] Comment: Supplemental ranges: <140 mg/dL before meals <180 mg/dL all other times of the day Blood 02/25/2024 3:38 AM EDT 02/25/2024 3:38 AM EDT Ari Renae MD POINT OF CARE TEST O RDERABLES [facility] [place] [address] * (ABNORMAL) Differential, Automated (02/25/2024 2:14 AM EDT) Neutrophil % 66.9 % [facility] Neutrophil Absolute 8.49(H) 1.70 - 6.10 x10(3)/ L [facility] Lymph % 18.8 % [facility] Lymphocytes Abs 2.4 0.9 - 3.2 x10(3)/[facility] Monocyte % 10.5 % [facility] Monocyte Abs 1.3(H) 0.3 - 0.9 x10(3)/ L [facility] Eos % 2.7 % [facility] Eosinophils Abs 0.3 0.0 - 0.4 x10(3)/[facility] Basophil % 0.7 % [facility] Baso Absolute 0.1 0.0 - 0.1 x10(3)/ L [facility] Immature Gran % 0.40 % [facility] Comment: Immature granulocytes(IG's)percentage and absolute count will include metamyelocytes, myelocytes, and promyelocytes. Blood smears from CBCs yielding IG's will be scanned manually for concordance. If this scan disagrees with the automated IG or if promyelocytes are noted, a manual differential will be performed. Immature Gran Absolute 0.05(H) 0.00 - 0.04 x10(3)/ L [facility] Blood 02/25/2024 2:14 AM EDT 02/25/2024 2:22 AM EDT Narrative Resulting Agency Comment Spec In Lab Marti Garcia MD HEMATOLOGY ORDERABL ES [facility] [place] [address] * (ABNORMAL) Hemogram (02/25/2024 2:14 AM EDT) White Blood Cell 12.7(H) 4.0 - 9.5 x10(3)/mc L [facility] Red Blood Cell 2.96(L) 4.58 - 5.54 x10(6)/mc L [facility] Hemoglobin 8.4(L) 13.7 - 16.5 g/dL [facility] Hematocrit 26.6(L) 40.5 - 48.5 % [facility] Mean Cell Volume 89.9 82.9 - 93.1 fL [facility] Mean Cell Hemoglobin 28.4 27.5 - 32.1 pg [facility] Mean Cell Hemoglobin Concentration 31.6(L) 32.0 - 35.7 g/dL [facility] Platelet 482(H) 145 - 357 x10(3)/mc L [facility] RDW Standard Deviation 47.5(H) 36.0 - 45.0 fL [facility] RDW coefficient of variation 14.6(H) 11.4 - 13.8 % [facility] Mean Platelet Volume 10.6 7.6 - 12.9 fL [facility] NRBC% auto 0.0 % [facility] NRBC Absolute 0.000 0.000 - 0.000 x10(3)/mc L [facility] Blood 02/25/2024 2:14 AM EDT 02/25/2024 2:22 AM EDT Narrative Resulting Agency Comment Spec In Lab Marti Garcia MD HEMATOLOGY ORDERABL ES Performing Organization Address [facility]/[place] Co de Phone Number [facility] [place] [place] [address] * (ABNORMAL) Phosphorus (02/25/2024 2:14 AM EDT) Pathologist [facility] Phosphorus 5.6(H) 2.5 - 4.5 mg/dL [facility] Blood 02/25/2024 2:14 AM EDT 02/25/2024 2:22 AM EDT Narrative Resulting Agency Comment Spec In Lab Ari Renae MD CHEMISTRY ORDERABLES Performing Organization Address [facility]/[place] Co de Phone Number [facility] [place] [place] [address] * Magnesium (02/25/2024 2:14 AM EDT) [facility] Magnesium 0.87 0.69 - 1.07 mmol/L [facility] Blood 02/25/2024 2:14 AM EDT 02/25/2024 2:22 AM EDT Narrative Resulting Agency Comment Spec In Lab Ari Renae MD CHEMISTRY ORDERABLES Performing Organization Address [facility]/[place] Co de Phone Number [facility] [place] [place] [address] * (ABNORMAL) Basic Metabolic Panel (non-fasting) (02/25/2024 2:14 AM EDT) Glucose 194 65 - 199 mg/dL [facility] Comment:Diabetes: >=200 mg/d L plus symptoms Blood Urea Nitrogen 32(H) 10 - 20 mg/dL [facility] Creatinine 6.92(H) 0.80 - 1.50 mg/dL [facility] Comment:result rechecked-MG Sodium 137 135 - 145 mmol/L [facility] Potassium 5.1(H) 3.5 - 5.0 mmol/L [facility] Comment: Please note: ??Patients with WBC >100,000 may have falsely elevated Potassium levels. ??For accurate Potassium quantification in these patients send serum separator tube (gold top) for subsequent determinations. ??Contact the Clinical Chemistry Laboratory if there are any questions. Chloride 98 98 - 107 mmol/L [facility] Carbon Dioxide 26 22 - 31 mmol/L [facility] Anion Gap 13 5 - 15 mmol/L [facility] Calcium 8.9 8.5 - 10.5 mg/dL [facility] Est Glomerular Filtration Rate 9(L) >=60 mL/min/1. 73 m?? [facility] Comment: This patient's estimated GFR [...] In Lab Ari Renae MD CHEMISTRY ORDERABLES [facility] [place] [place] [address] * (ABNORMAL) POCT Glucose (02/24/2024 11:33 PM EDT) Glucose, POC 214(H) 65 - 199 mg/dL [facility] Comment: Supplemental ranges: <140 mg/dL before meals <180 mg/dL all other times of the day Blood 02/24/2024 11:3 3 PM EDT 02/24/2024 11:33 PM EDT Ari Renae MD POINT OF CARE TEST O RDERABLES Performing Organization Address [facility]/[place] Co de Phone Number [facility] [place] [address] * (ABNORMAL) POCT Glucose (02/24/2024 8:15 PM EDT) Glucose, POC 225(H) 65 - 199 mg/dL [facility] Comment: Supplemental ranges: <140 mg/dL before meals <180 mg/dL all other times of the day Blood 02/24/2024 8:15 PM EDT 02/24/2024 8:15 PM EDT Ari Renae MD POINT OF CARE TEST O RDERAKEREN Performing Organization Address [facility]/[place] Co de Phone Number [facility] [place] [address] * (ABNORMAL) POCT Glucose (02/24/2024 4:13 PM EDT) Glucose, POC 210(H) 65 - 199 mg/dL [facility] Comment: Supplemental ranges: <140 mg/dL before meals <180 mg/dL all other times of the day Blood 02/24/2024 4:13 PM EDT 02/24/2024 4:13 PM EDT Ari Renae MD POINT OF CARE TEST O ADITIERAKEREN Performing Organization Address [facility]/[place] Co de Phone Number [facility] [place] [address] * POCT Glucose (02/24/2024 12:05 PM EDT) Glucose, POC 147 65 - 199 mg/dL [facility] Comment: Supplemental ranges: <140 mg/dL before meals <180 mg/dL all other times of the day Blood 02/24/2024 12:0 5 PM EDT 02/24/2024 12:05 PM EDT Ari Renae MD POINT OF CARE TEST O RDERAKEREN Performing Organization Address City/[facility]/ZIP Co de Phone Number [facility] [place] [place] [address] * POCT Glucose (02/24/2024 7:44 AM EDT) Glucose, POC 114 65 - 199 mg/dL [facility] Comment: Supplemental ranges: <140 mg/dL before meals <180 mg/dL all other times of the day Blood 02/24/2024 7:44 AM EDT 02/24/2024 7:44 AM EDT Ari Renae MD POINT OF CARE TEST Vita MAE Performing Organization Address [facility]/ZIP Co de Phone Number [facility] [place] [address] * (ABNORMAL) PTH (02/24/2024 6:07 AM EDT) Parathyroid Hormone 180(H) 15 - 65 pg/mL [facility] Blood Venous Draw / Unknown 02/24/2024 6:07 AM EDT 02/24/2024 4:52 PM EDT Narrative Resulting Agency Comment Spec In Lab Jordan Sepulveda MD CHEMISTRY ORDERABLES Performing Organization Address [facility]/ZIP Co de Phone Number [facility] [place] [address] * (ABNORMAL) Iron and TIBC (02/24/2024 6:07 AM EDT) Iron 19(L) 45 - 160 mcg/dL [facility] TIBC 120(L) 250 - 450 mcg/dL [facility] Iron Saturation 16(L) 20 - 50 % [facility] Blood Venous Draw / Unknown 02/24/2024 6:07 AM EDT 02/24/2024 6:28 AM EDT Narrative Resulting Agency Comment Spec In Lab Jordan Sepulveda MD CHEMISTRY ORDERABLES Performing Organization Address [facility]/ZIP Co de Phone Number [facility] [place] [address] * (ABNORMAL) Differential, Automated (02/24/2024 6:07 AM EDT) Neutrophil % 72.2 % [facility] Neutrophil Absolute 10.22(H) 1.70 - 6.10 x10(3)/mc L [facility] Lymph % 13.2 % [facility] Lymphocytes Abs 1.9 0.9 - 3.2 x10(3)/mc L [facility] Monocyte % 10.9 % [facility] Monocyte Abs 1.5(H) 0.3 - 0.9 x10(3)/mc L [facility] Eos % 2.8 % [facility] Eosinophils Abs 0.4 0.0 - 0.4 x10(3)/mc L [facility] Basophil % 0.4 % [facility] Baso Absolute 0.1 0.0 - 0.1 x10(3)/mc L [facility] Immature Gran % 0.50 % [facility] Comment: Immature granulocytes(IG's)percentage and absolute count will include metamyelocytes, myelocytes, and promyelocytes. Blood smears from CBCs yielding IG's will be scanned manually for concordance. If this scan disagrees with the automated IG or if promyelocytes are noted, a manual differential will be performed. Immature Gran Absolute 0.07(H) 0.00 - 0.04 x10(3)/mc L [facility] Blood 02/24/2024 6:07 AM EDT 02/24/2024 6:23 AM EDT Narrative Resulting Agency Comment Spec In Lab Marti Garcia MD HEMATOLOGY ORDERABL ES Performing Organization Address [facility]/ZIP Co de Phone Number [facility] [place] [place] [address] * (ABNORMAL) Hemogram (02/24/2024 6:07 AM EDT) White Blood Cell 14.1(H) 4.0 - 9.5 x10(3)/[facility] Red Blood Cell 2.91(L) 4.58 - 5.54 x10(6)/ L [facility] Hemoglobin 8.4(L) 13.7 - 16.5 g/dL [facility] Hematocrit 25.8(L) 40.5 - 48.5 % [facility] Mean Cell Volume 88.7 82.9 - 93.1 [facility] Mean Cell Hemoglobin 28.9 27.5 - 32.1 pg [facility] Mean Cell Hemoglobin Concentration 32.6 32.0 - 35.7 g/dL [facility] Platelet 445(H) 145 - 357 x10(3)/[facility] RDW Standard Deviation 47.0(H) 36.0 - 45.0 [facility] RDW coefficient of variation 14.5(H) 11.4 - 13.8 % [facility] Mean Platelet Volume 10.7 7.6 - 12.9 [facility] NRBC% auto 0.0 % [facility] NRBC Absolute 0.000 0.000 - 0.000 x10(3)/[facility] Blood 02/24/2024 6:07 AM EDT 02/24/2024 6:23 AM EDT Narrative Resulting Agency Comment Spec In Lab Marti Garcia MD HEMATOLOGY ORDERABL ES [facility] [place] [address] * (ABNORMAL) Phosphorus (02/24/2024 6:07 AM EDT) Phosphorus 4.8(H) 2.5 - 4.5 mg/dL [facility] Blood 02/24/2024 6:07 AM EDT 02/24/2024 6:23 AM EDT Narrative Resulting Agency Comment Spec In Lab Ari Renae MD CHEMISTRY ORDERABLES Performing Organization Address City/[facility]/ZIP Co de Phone Number [facility] [place] [address] * Magnesium (02/24/2024 6:07 AM EDT) Magnesium 0.84 0.69 - 1.07 mmol/L [facility] Blood 02/24/2024 6:07 AM EDT 02/24/2024 6:23 AM EDT Narrative Resulting Agency Comment Spec In Lab Ari Renae MD CHEMISTRY ORDERABLES Performing Organization Address City/[facility]/[place] Co de Phone Number [facility] [place] [address] * (ABNORMAL) Basic Metabolic Panel (non-fasting) (02/24/2024 6:07 AM EDT) Glucose 123 65 - 199 mg/dL [facility] Comment:Diabetes: >=200 mg/d L plus symptoms Blood Urea Nitrogen 25(H) 10 - 20 mg/dL [facility] Creatinine 5.70(H) 0.80 - 1.50 mg/dL [facility] Comment:result rechecked-tmp Sodium 137 135 - 145 mmol/L [facility] Potassium 4.7 3.5 - 5.0 mmol/L [facility] Comment: Please note: ??Patients with WBC >100,000 may have falsely elevated Potassium levels. ??For accurate Potassium quantification in these patients send serum separator tube (gold top) for subsequent determinations. ??Contact the Clinical Chemistry Laboratory if there are any questions. Chloride 97(L) 98 - 107 mmol/L [facility] Carbon Dioxide 26 22 - 31 mmol/L [facility] Anion Gap 14 5 - 15 mmol/L [facility] Calcium 9.2 8.5 - 10.5 mg/dL [facility] Est Glomerular Filtration Rate 11(L) >=60 mL/min/1. 73 m?? [facility] Comment: This patient's estimated GFR [...] In Lab Ari Renae MD CHEMISTRY ORDERABLES [facility] [place] [place] [address] * POCT Glucose (02/24/2024 4:01 AM EDT) Glucose, POC 106 65 - 199 mg/dL [facility] Comment: Supplemental ranges: <140 mg/dL before meals <180 mg/dL all other times of the day Blood 02/24/2024 4:01 AM EDT 02/24/2024 4:01 AM EDT Ari Renae MD POINT OF CARE TEST O RDERABLES [facility] [place] [address] * POCT Glucose (02/23/2024 11:55 PM EDT) Glucose, POC 93 65 - 199 mg/dL [facility] Comment: Supplemental ranges: <140 mg/dL before meals <180 mg/dL all other times of the day Blood 02/23/2024 11:5 5 PM EDT 02/23/2024 11:55 PM EDT Ari Renae MD POINT OF CARE TEST O CARMELITA [facility] [place] [address] * POCT Glucose (02/23/2024 7:33 PM EDT) Glucose, POC 103 65 - 199 mg/dL [facility] Comment: Supplemental ranges: <140 mg/dL before meals <180 mg/dL all other times of the day Blood 02/23/2024 7:33 PM EDT 02/23/2024 7:33 PM EDT Ari Renae MD POINT OF CARE TEST O CARMELITA Performing Organization Address City/[facility]/ZIP Co de Phone Number [facility] [place] [address] * (ABNORMAL) Hemogram (02/23/2024 5:25 PM EDT) White Blood Cell 14.8(H) 4.0 - 9.5 x10(3)/mc L [facility] Red Blood Cell 3.39(L) 4.58 - 5.54 x10(6)/mc L [facility] Hemoglobin 9.7(L) 13.7 - 16.5 g/dL [facility] Hematocrit 30.2(L) 40.5 - 48.5 % [facility] Mean Cell Volume 89.1 82.9 - 93.1 fL [facility] Mean Cell Hemoglobin 28.6 27.5 - 32.1 pg [facility] Mean Cell Hemoglobin Concentration 32.1 32.0 - 35.7 g/dL [facility] Platelet 476(H) 145 - 357 x10(3)/mc L [facility] RDW Standard Deviation 46.4(H) 36.0 - 45.0 fL [facility] RDW coefficient of variation 14.3(H) 11.4 - 13.8 % [facility] Mean Platelet Volume 10.9 7.6 - 12.9 [facility] NRBC% auto 0.0 % [facility] NRBC Absolute 0.000 0.000 - 0.000 x10(3)/mc L [facility] Blood 02/23/2024 5:25 PM EDT 02/23/2024 5:45 PM EDT Narrative Resulting Agency Comment Spec In Lab Ari Renae MD HEMATOLOGY ORDERABLE S Performing Organization Address City/[facility]/ZIP Co de Phone Number [facility] [place] [address] * POCT Glucose (02/23/2024 4:48 PM EDT) Glucose, POC 129 65 - 199 mg/dL [facility] Comment: Supplemental ranges: <140 mg/dL before meals <180 mg/dL all other times of the day Blood 02/23/2024 4:48 PM EDT 02/23/2024 4:48 PM EDT Ari Renae MD POINT OF CARE TEST O RDERABLES [facility] [place] [address] * POCT Glucose (02/23/2024 3:06 PM EDT) Glucose, POC 113 65 - 199 mg/dL [facility] Comment: Supplemental ranges: <140 mg/dL before meals <180 mg/dL all other times of the day Blood 02/23/2024 3:06 PM EDT 02/23/2024 3:06 PM EDT Ari Renae MD POINT OF CARE TEST O RDERABLES Performing Organization Address [facility]/[place] Co de Phone Number [facility] [place] [address] * (ABNORMAL) POCT Glucose (02/23/2024 2:26 PM EDT) Glucose, POC 63(L) 65 - 199 mg/dL [facility] Comment: Supplemental ranges: <140 mg/dL before meals <180 mg/dL all other times of the day Blood 02/23/2024 2:26 PM EDT 02/23/2024 2:26 PM EDT Ari Renae MD POINT OF CARE TEST O CARMELITA Performing Organization Address [facility]/[place] Co de Phone Number [facility] [place] [address] * (ABNORMAL) POCT Glucose (02/23/2024 1:42 PM EDT) Glucose, POC 57(L) 65 - 199 mg/dL [facility] Comment: Supplemental ranges: <140 mg/dL before meals <180 mg/dL all other times of the day Blood 02/23/2024 1:42 PM EDT 02/23/2024 1:42 PM EDT Ari Renae MD POINT OF CARE TEST O CARMELITA Performing Organization Address [facility]/[place] Co de Phone Number [facility] [place] [place] [address] * POCT Glucose (02/23/2024 1:15 PM EDT) Glucose, POC 69 65 - 199 mg/dL [facility] Comment: Supplemental ranges: <140 mg/dL before meals <180 mg/dL all other times of the day Blood 02/23/2024 1:15 PM EDT 02/23/2024 1:15 PM EDT Ari Renae MD POINT OF CARE TEST O RDERABLES Performing Organization Address City/[facility]/ZIP Co de Phone Number [facility] [place] [place] [address] * Transfuse RBC (02/23/2024 11:44 AM EDT) Ari Renae MD NURSING TREATMENT OR DERABLES - BLOOD ADMIN * Transfuse RBC (02/23/2024 11:44 AM EDT) Ari Renae MD NURSING TREATMENT OR DERABLES - BLOOD ADMIN * POCT Glucose (02/23/2024 8:14 AM EDT) Pathologist [facility] Glucose, POC 111 65 - 199 mg/dL [facility] Comment: Supplemental ranges: <140 mg/dL before meals <180 mg/dL all other times of the day Blood 02/23/2024 8:14 AM EDT 02/23/2024 8:14 AM EDT Ari Renae MD POINT OF CARE TEST O RDERABLES Performing Organization Address City/[facility]/ZIP Co de Phone Number [facility] [place] [place] [address] * ABORh Type Manual (02/23/2024 7:12 AM EDT) ABORH TYPE A POSITIVE [facility] 02/23/2024 7:12 AM EDT 02/23/2024 7:12 AM EDT Jean Henning MD BLOOD BANK LAB O RDERABLES Performing Organization Address City/[facility]/ZIP Co de Phone Number [facility] [place] [place] [address] * Antibody identification (02/23/2024 7:12 AM EDT) Ab Identified [facility] 02/23/2024 7:12 AM EDT 02/23/2024 7:12 AM EDT Jean Henning MD BLOOD BANK LAB O RDERABLES Performing Organization Address [facility]/ZIP Co de Phone Number [facility] [place] [address] * ABORH Recheck Status (02/23/2024 7:12 AM EDT) ABORH Type Recheck Completed [facility] Blood 02/23/2024 7:12 AM EDT 02/23/2024 7:17 AM EDT Narrative Resulting Agency Comment Spec In Lab Jean Henning MD BLOOD BANK LAB O RDERABLES Performing Organization Address [facility]/[place] Co de Phone Number [facility] [place] [place] [address] * Type and screen [place] (02/23/2024 7:12 AM EDT) Pathologist [facility] Patient BB History Found [facility] Expires at [id number] on: 02/26/2024 [facility] Ab Screen Interp Negative [facility] Blood 02/23/2024 7:12 AM EDT 02/23/2024 7:12 AM EDT Narrative [facility] - 02/23/2024 7:12 AM EDT This Type and Screen result is only valid at the [facility] Resulting Agency Comment Spec In Lab Ari Renae MD BLOOD BANK LAB ORDER FRANSISCO Performing Organization Address City/[facility]/ZIP Co de Phone Number [facility] [place] [place] [address] * (ABNORMAL) Differential, Automated (02/23/2024 4:11 AM EDT) Neutrophil % 72.9 % [facility] Neutrophil Absolute 11.74(H) 1.70 - 6.10 x10(3)/mc L [facility] Lymph % 11.6 % [facility] Lymphocytes Abs 1.9 0.9 - 3.2 x10(3)/ L [facility] Monocyte % 12.6 % [facility] Monocyte Abs 2.0(H) 0.3 - 0.9 x10(3)/[facility] Eos % 2.0 % [facility] Eosinophils Abs 0.3 0.0 - 0.4 x10(3)/[facility] Basophil % 0.4 % [facility] Baso Absolute 0.1 0.0 - 0.1 x10(3)/[facility] Immature Gran % 0.50 % [facility] Comment: Immature granulocytes(IG's)percentage and absolute count will include metamyelocytes, myelocytes, and promyelocytes. Blood smears from CBCs yielding IG's will be scanned manually for concordance. If this scan disagrees with the automated IG or if promyelocytes are noted, a manual differential will be performed. Immature Gran Absolute 0.08(H) 0.00 - 0.04 x10(3)/[facility] Blood 02/23/2024 4:11 AM EDT 02/23/2024 4:36 AM EDT Narrative Resulting Agency Comment Spec In Lab Marti Garcia MD HEMATOLOGY ORDERABL ES [facility] [place] [place] [address] * (ABNORMAL) Hemogram (02/23/2024 4:11 AM EDT) White Blood Cell 16.1(H) 4.0 - 9.5 x10(3)/[facility] Red Blood Cell 2.45(L) 4.58 - 5.54 x10(6)/[facility] Hemoglobin 6.9(L) 13.7 - 16.5 g/dL [facility] Hematocrit 21.6(L) 40.5 - 48.5 % [facility] Mean Cell Volume 88.2 82.9 - 93.1 fL [facility] Mean Cell Hemoglobin 28.2 27.5 - 32.1 pg [facility] Mean Cell Hemoglobin Concentration 31.9(L) 32.0 - 35.7 g/dL [facility] Platelet 388(H) 145 - 357 x10(3)/mc L [facility] RDW Standard Deviation 47.5(H) 36.0 - 45.0 fL [facility] RDW coefficient of variation 14.6(H) 11.4 - 13.8 % [facility] Mean Platelet Volume 10.9 7.6 - 12.9 fL [facility] NRBC% auto 0.0 % [facility] NRBC Absolute 0.000 0.000 - 0.000 x10(3)/mc L [facility] Blood 02/23/2024 4:11 AM EDT 02/23/2024 4:36 AM EDT Narrative Resulting Agency Comment Spec In Lab Marti Garcia MD HEMATOLOGY ORDERABL ES Performing Organization Address [facility]/[place] Co de Phone Number [facility] [place] [address] * (ABNORMAL) Phosphorus (02/23/2024 4:11 AM EDT) Phosphorus 5.5(H) 2.5 - 4.5 mg/dL [facility] Blood 02/23/2024 4:11 AM EDT 02/23/2024 4:36 AM EDT Narrative Resulting Agency Comment Spec In Lab Ari Renae MD CHEMISTRY ORDERABLES Performing Organization Address [facility]/[place] Co de Phone Number [facility] [place] [place] [address] * Magnesium (02/23/2024 4:11 AM EDT) Magnesium 0.83 0.69 - 1.07 mmol/L [facility] Blood 02/23/2024 4:11 AM EDT 02/23/2024 4:36 AM EDT Narrative Resulting Agency Comment Spec In Lab Ari Renae MD CHEMISTRY ORDERABLES [facility] [place] [place] [address] * (ABNORMAL) Basic Metabolic Panel (non-fasting) (02/23/2024 4:11 AM EDT) Glucose 98 65 - 199 mg/dL [facility] Comment:Diabetes: >=200 mg/d L plus symptoms Blood Urea Nitrogen 34(H) 10 - 20 mg/dL [facility] Creatinine 7.00(H) 0.80 - 1.50 mg/dL [facility] Comment:result rechecked-MG Sodium 137 135 - 145 mmol/L [facility] Potassium 4.9 3.5 - 5.0 mmol/L [facility] Comment: Please note: ??Patients with WBC >100,000 may have falsely elevated Potassium levels. ??For accurate Potassium quantification in these patients send serum separator tube (gold top) for subsequent determinations. ??Contact the Clinical Chemistry Laboratory if there are any questions. Chloride 98 98 - 107 mmol/L [facility] Carbon Dioxide 26 22 - 31 mmol/L [facility] Anion Gap 13 5 - 15 mmol/L [facility] Calcium 8.5 8.5 - 10.5 mg/dL [facility] Est Glomerular Filtration Rate 8(L) >=60 mL/min/1. 73 m?? [facility] Comment: This patient's estimated GFR [...] Renae MD CHEMISTRY ORDERABLES Performing Organization Address City/[facility]/[place] Co de Phone Number [facility] [place] [address] * Vancomycin Level, Random (02/23/2024 4:11 AM EDT) Vancomycin, Random 26.7 mg/L [facility] Comment: This level is for determination of the patient's vancomycin kqpe-zzoyv-pgi-curve (AUC) value. Contact the inpatient pharmacy for interpretation. Blood 02/23/2024 4:11 AM EDT 02/23/2024 4:36 AM EDT Ari Renae MD CHEMISTRY ORDERABLES Performing Organization Address [facility]/[place] Co de Phone Number [facility] [place] [place] [address] * POCT Glucose (02/23/2024 4:06 AM EDT) Glucose, POC 100 65 - 199 mg/dL [facility] Comment: Supplemental ranges: <140 mg/dL before meals <180 mg/dL all other times of the day Blood 02/23/2024 4:06 AM EDT 02/23/2024 4:06 AM EDT Ari Renae MD POINT OF CARE TEST O RDERABLES Performing Organization Address [facility]/[place] Co de Phone Number [facility] [place] [place] [address] * POCT Glucose (02/23/2024 2:06 AM EDT) Glucose, POC 86 65 - 199 mg/dL [facility] Comment: Supplemental ranges: <140 mg/dL before meals <180 mg/dL all other times of the day Blood 02/23/2024 2:06 AM EDT 02/23/2024 2:06 AM EDT Ari Renae MD POINT OF CARE TEST O [facility] [place] [place] [address] * POCT Glucose (02/23/2024 12:42 AM EDT) Glucose, POC 79 65 - 199 mg/dL [facility] Comment: Supplemental ranges: <140 mg/dL before meals <180 mg/dL all other times of the day Blood 02/23/2024 12:4 2 AM EDT 02/23/2024 12:42 AM EDT Ari Renae MD POINT OF CARE TEST O CARMELITA Performing Organization Address City/[facility]/ZIP Co de Phone Number [facility] [place] [address] * POCT Glucose (02/22/2024 11:34 PM EDT) Glucose, POC 76 65 - 199 mg/dL [facility] Comment: Supplemental ranges: <140 mg/dL before meals <180 mg/dL all other times of the day Blood 02/22/2024 11:3 4 PM EDT 02/22/2024 11:34 PM EDT Ari Renae MD POINT OF CARE TEST O RDERAKEREN [facility] [place] [address] * POCT Glucose (02/22/2024 7:42 PM EDT) Glucose, POC 174 65 - 199 mg/dL [facility] Comment: Supplemental ranges: <140 mg/dL before meals <180 mg/dL all other times of the day Blood 02/22/2024 7:42 PM EDT 02/22/2024 7:42 PM EDT Ari Renae MD POINT OF CARE TEST O CARMELITA [facility] [place] [address] * POCT Glucose (02/22/2024 4:00 PM EDT) Glucose, POC 190 65 - 199 mg/dL [facility] Comment: Supplemental ranges: <140 mg/dL before meals <180 mg/dL all other times of the day Blood 02/22/2024 4:00 PM EDT 02/22/2024 4:00 PM EDT Ari Renae MD POINT OF CARE TEST O CARMELITA Performing Organization Address City/[facility]/ZIP Co de Phone Number [facility] [place] [address] * POCT Glucose (02/22/2024 11:48 AM EDT) Glucose, POC 163 65 - 199 mg/dL [facility] Comment: Supplemental ranges: <140 mg/dL before meals <180 mg/dL all other times of the day Blood 02/22/2024 11:4 8 AM EDT 02/22/2024 11:48 AM EDT Ari Renae MD POINT OF CARE TEST O RDERAKEREN [facility] [place] [address] * POCT Glucose (02/22/2024 8:09 AM EDT) Glucose, POC 132 65 - 199 mg/dL [facility] Comment: Supplemental ranges: <140 mg/dL before meals <180 mg/dL all other times of the day Blood 02/22/2024 8:09 AM EDT 02/22/2024 8:09 AM EDT Ari Renae MD POINT OF CARE TEST O RDERABLES Performing Organization Address [facility]/[place] Co de Phone Number [facility] [place] [address] * (ABNORMAL) Albumin Level (02/22/2024 4:53 AM EDT) [facility] Albumin 2.8(L) 3.2 - 5.2 g/dL [facility] Blood Venous Draw / Unknown 02/22/2024 4:53 AM EDT 02/22/2024 5:28 AM EDT Narrative Resulting Agency Comment Spec In Lab Jordan Sepulveda MD CHEMISTRY ORDERABLES Performing Organization Address [facility]/[place] Co de Phone Number [facility] [place] [address] * Scan, Peripheral Blood (02/22/2024 4:53 AM EDT) [facility] Plat estimate Increased [facility] RBC Morphology Abnormal [facility] Hypochromia Slight [facility] Blood 02/22/2024 4:53 AM EDT 02/22/2024 5:27 AM EDT Narrative Resulting Agency Comment Spec In Lab Marti Garcia MD HEMATOLOGY ORDERABL ES Performing Organization Address [facility]/[place] Co de Phone Number [facility] [place] [address] * (ABNORMAL) Differential, Automated (02/22/2024 4:53 AM EDT) Pathologist [facility] Neutrophil % 79.8 % [facility] Neutrophil Absolute 13.13(H) 1.70 - 6.10 x10(3)/mc L [facility] Lymph % 7.7 % [facility] Lymphocytes Abs 1.3 0.9 - 3.2 x10(3)/[facility] Monocyte % 9.9 % [facility] Monocyte Abs 1.6(H) 0.3 - 0.9 x10(3)/[facility] Eos % 1.8 % [facility] Eosinophils Abs 0.3 0.0 - 0.4 x10(3)/[facility] Basophil % 0.4 % [facility] Baso Absolute 0.1 0.0 - 0.1 x10(3)/[facility] Immature Gran % 0.40 % [facility] Comment: Immature granulocytes(IG's)percentage and absolute count will include metamyelocytes, myelocytes, and promyelocytes. Blood smears from CBCs yielding IG's will be scanned manually for concordance. If this scan disagrees with the automated IG or if promyelocytes are noted, a manual differential will be performed. Immature Gran Absolute 0.06(H) 0.00 - 0.04 x10(3)/[facility] Blood 02/22/2024 4:53 AM EDT 02/22/2024 5:27 AM EDT Narrative Resulting Agency Comment Spec In Lab Marti Garcia MD HEMATOLOGY ORDERABL ES [facility] [place] [address] * (ABNORMAL) Hemogram (02/22/2024 4:53 AM EDT) White Blood Cell 16.4(H) 4.0 - 9.5 x10(3)/[facility] LAB[facility]AT[facility] Red Blood Cell 2.87(L) 4.58 - 5.54 x10(6)/[facility] Hemoglobin 8.1(L) 13.7 - 16.5 g/dL [facility] Hematocrit 25.3(L) 40.5 - 48.5 % [facility] Mean Cell Volume 88.2 82.9 - 93.1 fL [facility] Mean Cell Hemoglobin 28.2 27.5 - 32.1 pg [facility] Mean Cell Hemoglobin Concentration 32.0 32.0 - 35.7 g/dL [facility] Platelet 434(H) 145 - 357 x10(3)/mc L [facility] RDW Standard Deviation 46.9(H) 36.0 - 45.0 fL [facility] RDW coefficient of variation 14.6(H) 11.4 - 13.8 % [facility] Mean Platelet Volume 11.1 7.6 - 12.9 [facility] NRBC% auto 0.0 % [facility] NRBC Absolute 0.000 0.000 - 0.000 x10(3)/mc L [facility] Blood 02/22/2024 4:53 AM EDT 02/22/2024 5:27 AM EDT Narrative Resulting Agency Comment Spec In Lab Marti Garcia MD HEMATOLOGY ORDERABL ES Performing Organization Address [facility]/[place] Co de Phone Number [facility] [place] [address] * Phosphorus (02/22/2024 4:53 AM EDT) Phosphorus 4.4 2.5 - 4.5 mg/dL [facility] Blood 02/22/2024 4:53 AM EDT 02/22/2024 5:27 AM EDT Narrative Resulting Agency Comment Spec In Lab Ari Renae MD CHEMISTRY ORDERABLES Performing Organization Address [facility]/ZIP Co de Phone Number [facility] [place] [address] * Magnesium (02/22/2024 4:53 AM EDT) Magnesium 0.81 0.69 - 1.07 mmol/L [facility] Blood 02/22/2024 4:53 AM EDT 02/22/2024 5:27 AM EDT Narrative Resulting Agency Comment Spec In Lab Ari Renae MD CHEMISTRY ORDERABLES [facility] [place] [address] * (ABNORMAL) Basic Metabolic Panel (non-fasting) (02/22/2024 4:53 AM EDT) Glucose 143 65 - 199 mg/dL [facility] Comment:Diabetes: >=200 mg/d L plus symptoms Blood Urea Nitrogen 25(H) 10 - 20 mg/dL [facility] Creatinine 5.47(H) 0.80 - 1.50 mg/dL [facility] Comment:result rechecked-hn Sodium 137 135 - 145 mmol/L [facility] Potassium 4.3 3.5 - 5.0 mmol/L [facility] Comment: Please note: ??Patients with WBC >100,000 may have falsely elevated Potassium levels. ??For accurate Potassium quantification in these patients send serum separator tube (gold top) for subsequent determinations. ??Contact the Clinical Chemistry Laboratory if there are any questions. Chloride 99 98 - 107 mmol/L [facility] Carbon Dioxide 28 22 - 31 mmol/L [facility] Anion Gap 10 5 - 15 mmol/L [facility] Calcium 8.4(L) 8.5 - 10.5 mg/dL [facility] Est Glomerular Filtration Rate 11(L) >=60 mL/min/1. 73 m?? [facility] Comment: This patient's estimated GFR [...] In Lab Ari Renae MD CHEMISTRY ORDERABLES [facility] [place] [address] * POCT Glucose (02/22/2024 3:35 AM EDT) Glucose, POC 139 65 - 199 mg/dL [facility] Comment: Supplemental ranges: <140 mg/dL before meals <180 mg/dL all other times of the day Blood 02/22/2024 3:35 AM EDT 02/22/2024 3:35 AM EDT Ari Renae MD POINT OF CARE TEST O RDERABLES Performing Organization Address [facility]/[place] Co de Phone Number [facility] [place] [address] * POCT Glucose (02/21/2024 11:57 PM EDT) Glucose, POC 182 65 - 199 mg/dL [facility] Comment: Supplemental ranges: <140 mg/dL before meals <180 mg/dL all other times of the day Blood 02/21/2024 11:5 7 PM EDT 02/21/2024 11:57 PM EDT Ari Renae MD POINT OF CARE TEST O CARMELITA Performing Organization Address City/[facility]/ZIP Co de Phone Number [facility] [place] [address] * POCT Glucose (02/21/2024 8:15 PM EDT) Glucose, POC 105 65 - 199 mg/dL [facility] Comment: Supplemental ranges: <140 mg/dL before meals <180 mg/dL all other times of the day Blood 02/21/2024 8:15 PM EDT 02/21/2024 8:15 PM EDT Ari Renae MD POINT OF CARE TEST O RDERABLES [facility] [place] [address] * (ABNORMAL) Hemoglobin and Hematocrit, blood (02/21/2024 7:15 PM EDT) [facility] Signature Hemoglobin 8.3(L) 13.7 - 16.5 g/dL [facility] Hematocrit 27.4(L) 40.5 - 48.5 % [facility] Blood 02/21/2024 7:15 PM EDT 02/21/2024 7:27 PM EDT Narrative Resulting Agency Comment Spec In Lab Ari Renae MD HEMATOLOGY ORDERABLE S Performing Organization Address [facility]/ZIP Co de Phone Number [facility] [place] [address] * POCT Glucose (02/21/2024 6:08 PM EDT) Glucose, POC 104 65 - 199 mg/dL [facility] Comment: Supplemental ranges: <140 mg/dL before meals <180 mg/dL all other times of the day Blood 02/21/2024 6:08 PM EDT 02/21/2024 6:08 PM EDT Ari Renae MD POINT OF CARE TEST O RDERABLES Performing Organization Address City/[facility]/ZIP Co de Phone Number [facility] [place] [address] * POCT Glucose (02/21/2024 5:17 PM EDT) Glucose, POC 100 65 - 199 mg/dL [facility] Comment: Supplemental ranges: <140 mg/dL before meals <180 mg/dL all other times of the day Blood 02/21/2024 5:17 PM EDT 02/21/2024 5:17 PM EDT Ari Renae MD POINT OF CARE TEST O CARMELITA [facility] [place] [address] * Specimen to Pathology (02/21/2024 5:05 PM EDT) AP Specimen 02/21/2024 5:05 PM EDT 02/21/2024 5:05 PM EDT Narrative [facility] - 02/21/2024 5:05 PM EDT Specimen requisition ordered. ??Separate Pathology report to follow Ari Renae MD PATHOLOGY/CYTOLOGY O CARMELITA [facility] [place] [address] * POCT Glucose (02/21/2024 3:12 PM EDT) Glucose, POC 123 65 - 199 mg/dL [facility] Comment: Supplemental ranges: <140 mg/dL before meals <180 mg/dL all other times of the day Blood 02/21/2024 3:12 PM EDT 02/21/2024 3:12 PM EDT Ari Renae MD POINT OF CARE TEST O CARMELITA [facility] [place] [address] * POCT Glucose (02/21/2024 2:20 PM EDT) Glucose, POC 149 65 - 199 mg/dL [facility] Comment: Supplemental ranges: <140 mg/dL before meals <180 mg/dL all other times of the day Blood 02/21/2024 2:20 PM EDT 02/21/2024 2:20 PM EDT Ari Renae MD POINT OF CARE TEST O CARMELITA Performing Organization Address City/[facility]/ZIP Co de Phone Number [facility] [place] [address] * POCT Glucose (02/21/2024 1:38 PM EDT) Glucose, POC 69 65 - 199 mg/dL [facility] Comment: Supplemental ranges: <140 mg/dL before meals <180 mg/dL all other times of the day Blood 02/21/2024 1:38 PM EDT 02/21/2024 1:38 PM EDT Ari Renae MD POINT OF CARE TEST O CARMELITA Performing Organization Address [facility]/[place] Co de Phone Number [facility] [place] [address] * POCT Glucose (02/21/2024 12:18 PM EDT) Glucose, POC 82 65 - 199 mg/dL [facility] Comment: Supplemental ranges: <140 mg/dL before meals <180 mg/dL all other times of the day Blood 02/21/2024 12:1 8 PM EDT 02/21/2024 12:18 PM EDT Ari Renae MD POINT OF CARE TEST O CARMELITA Performing Organization Address [facility]/[place] Co de Phone Number [facility] [place] [address] * Surgical Pathology Report (02/21/2024 12:01 PM EDT) Final Diagnosis [id number] ? Location: [id number]; [id number]; A The signing pathologist has (i) examined the relevant preparation(s) for the specimen(s) and (ii) rendered or confirmed the diagnosis(es). . ?Surgical Pathology DIAGNOSIS A. Left lower leg, amputation: - Status-post prior left foot amputation. - New soft tissue margin with fibrosis and focal fat necrosis; negative for significant acute inflammation. - Calcific atherosclerosis . Electronically signed by: ?Marya CID, Shyann Roes Verified: ??02/24/2024 17:05 ??Pathologist Performed at: ??-[facility], [place] [address] [employer]el Engine Fitter: Karina Valencia MD, FCAP, ??CLIA Certificate: [id number] SPECIMEN(S) SUBMITTED A - Left Lower Leg [...] Patent. ??Anterior tibial artery: Patent. Sections/Proces sing: Heel Attacher Wood sections in 3 cassettes as follows: ?A1: ??Representativ e section soft tissue margin ?A2: ??Representativ e section anterior tibial artery ?A3: ??Representativ e section posterior tibial artery ??kjs 02/24/2024 5:05 PM EDT [facility] Extremity 02/21/2024 12:0 1 PM EDT 02/21/2024 12:01 PM EDT Ari Renae MD PATHOLOGY/CYTOLOGY O RDERABLES [facility] [place] [address] * POCT Glucose (02/21/2024 8:36 AM EDT) Glucose, POC 106 65 - 199 mg/dL [facility] Comment: Supplemental ranges: <140 mg/dL before meals <180 mg/dL all other times of the day Blood 02/21/2024 8:36 AM EDT 02/21/2024 8:36 AM EDT Ari Renae MD POINT OF CARE TEST O RDLIEN [facility] [place] [address] * Blood culture (02/21/2024 8:03 AM EDT) Blood Culture No growth at 5 days. [facility] Blood 02/21/2024 8:03 AM EDT 02/21/2024 9:09 AM EDT Comment:AU FISTULA Narrative Resulting Agency Comment Spec In Lab Fareed Bryant MD MICROBIOLOGY - BLOOD ORDERABLES [facility] [place] [address] * POCT Glucose (02/21/2024 7:41 AM EDT) Glucose, POC 108 65 - 199 mg/dL [facility] Comment: Supplemental ranges: <140 mg/dL before meals <180 mg/dL all other times of the day Blood 02/21/2024 7:41 AM EDT 02/21/2024 7:41 AM EDT Ari Renae MD POINT OF CARE TEST O RDERAKEREN [facility] [place] [address] * Blood culture (02/21/2024 6:25 AM EDT) Blood Culture No growth at 5 days. [facility] Blood STRUCTURE OF RIGHT HAND / Unknown 02/21/2024 6:25 AM EDT 02/21/2024 7:57 AM EDT Narrative Resulting Agency Comment Spec In Lab Fareed Bryant MD MICROBIOLOGY - BLOOD ORDERABLES [facility] [place] [place] [address] * (ABNORMAL) Differential, Automated (02/21/2024 6:02 AM EDT) Pathologist [facility] Neutrophil % 66.8 % [facility] Neutrophil Absolute 8.66(H) 1.70 - 6.10 x10(3)/ L [facility] Lymph % 19.1 % [facility] Lymphocytes Abs 2.5 0.9 - 3.2 x10(3)/ L [facility] Monocyte % 9.7 % [facility] Monocyte Abs 1.2(H) 0.3 - 0.9 x10(3)/ L [facility] Eos % 3.5 % [facility] Eosinophils Abs 0.4 0.0 - 0.4 x10(3)/ L [facility] Basophil % 0.5 % [facility] Baso Absolute 0.1 0.0 - 0.1 x10(3)/ L [facility] Immature Gran % 0.40 % [facility] Comment: Immature granulocytes(IG's)percentage and absolute count will include metamyelocytes, myelocytes, and promyelocytes. Blood smears from CBCs yielding IG's will be scanned manually for concordance. If this scan disagrees with the automated IG or if promyelocytes are noted, a manual differential will be performed. Immature Gran Absolute 0.05(H) 0.00 - 0.04 x10(3)/mc L [facility] Blood 02/21/2024 6:02 AM EDT 02/21/2024 6:30 AM EDT Narrative Resulting Agency Comment Spec In Lab Marti Garcia MD HEMATOLOGY ORDERABL ES [facility] [place] [address] * (ABNORMAL) Hemogram (02/21/2024 6:02 AM EDT) White Blood Cell 13.0(H) 4.0 - 9.5 x10(3)/ L [facility] Red Blood Cell 2.84(L) 4.58 - 5.54 x10(6)/mc L [facility] Hemoglobin 8.0(L) 13.7 - 16.5 g/dL [facility] Hematocrit 25.8(L) 40.5 - 48.5 % [facility] Mean Cell Volume 90.8 82.9 - 93.1 fL [facility] Mean Cell Hemoglobin 28.2 27.5 - 32.1 pg [facility] Mean Cell Hemoglobin Concentration 31.0(L) 32.0 - 35.7 g/dL [facility] Platelet 510(H) 145 - 357 x10(3)/mc L [facility] RDW Standard Deviation 47.1(H) 36.0 - 45.0 fL [facility] RDW coefficient of variation 14.3(H) 11.4 - 13.8 % [facility] Mean Platelet Volume 11.0 7.6 - 12.9 fL [facility] NRBC% auto 0.0 % [facility] NRBC Absolute 0.000 0.000 - 0.000 x10(3)/[facility] Blood 02/21/2024 6:02 AM EDT 02/21/2024 6:30 AM EDT Narrative Resulting Agency Comment Spec In Lab Mrati Garcia MD HEMATOLOGY ORDERABL ES Performing Organization Address [facility]/[place] Co de Phone Number [facility] [place] [address] * (ABNORMAL) Phosphorus (02/21/2024 6:02 AM EDT) Phosphorus 5.2(H) 2.5 - 4.5 mg/dL [facility] Blood 02/21/2024 6:02 AM EDT 02/21/2024 6:30 AM EDT Narrative Resulting Agency Comment Spec In Lab Ari Renae MD CHEMISTRY ORDERABLES Performing Organization Address [facility]/[place] Co de Phone Number [facility] [place] [address] * Magnesium (02/21/2024 6:02 AM EDT) Pathologist [facility] Magnesium 0.93 0.69 - 1.07 mmol/L [facility] Blood 02/21/2024 6:02 AM EDT 02/21/2024 6:30 AM EDT Narrative Resulting Agency Comment Spec In Lab Ari Renae MD CHEMISTRY ORDERABLES Performing Organization Address [facility]/[place] Co de Phone Number [facility] [place] [address] * (ABNORMAL) Basic Metabolic Panel (non-fasting) (02/21/2024 6:02 AM EDT) Glucose 96 65 - 199 mg/dL [facility] Comment:Diabetes: >=200 mg/d L plus symptoms Blood Urea Nitrogen 46(H) 10 - 20 mg/dL [facility] Creatinine 8.39(H) 0.80 - 1.50 mg/dL [facility] Comment:result rechecked-el Sodium 139 135 - 145 mmol/L [facility] Potassium 5.1(H) 3.5 - 5.0 mmol/L [facility] Comment: Please note: ??Patients with WBC >100,000 may have falsely elevated Potassium levels. ??For accurate Potassium quantification in these patients send serum separator tube (gold top) for subsequent determinations. ??Contact the Clinical Chemistry Laboratory if there are any questions. Chloride 101 98 - 107 mmol/L [facility] Carbon Dioxide 26 22 - 31 mmol/L [facility] Anion Gap 12 5 - 15 mmol/L [facility] Calcium 9.2 8.5 - 10.5 mg/dL [facility] Est Glomerular Filtration Rate 7(L) >=60 mL/min/1. 73 m?? [facility] Comment: This patient's estimated GFR [...] Renae MD CHEMISTRY ORDERABLES Performing Organization Address City/[facility]/[place] Co me Phone Number [facility] [place] [address] * POCT Glucose (02/21/2024 4:29 AM EDT) Glucose, POC 91 65 - 199 mg/dL [facility] Comment: Supplemental ranges: <140 mg/dL before meals <180 mg/dL all other times of the day Blood 02/21/2024 4:29 AM EDT 02/21/2024 4:29 AM EDT Ari Renae MD POINT OF CARE TEST O RDERABLES [facility] [place] [address] * POCT Glucose (02/21/2024 12:42 AM EDT) Glucose, POC 115 65 - 199 mg/dL [facility] Comment: Supplemental ranges: <140 mg/dL before meals <180 mg/dL all other times of the day Blood 02/21/2024 12:4 2 AM EDT 02/21/2024 12:42 AM EDT Ari Renae MD POINT OF CARE TEST O CARMELITA Performing Organization Address [facility]/[place] Co de Phone Number [facility] [place] [address] * SCAN DOC: LAB (02/21/2024 12:00 AM EDT) Narrative 02/21/2024 12:00 AM EDT Ordered by an unspecified provider. Scanning Provider MEDIA MGR SCAN EXT O RDR/RSLT * (ABNORMAL) POCT Glucose (02/20/2024 7:39 PM EDT) Glucose, POC 216(H) 65 - 199 mg/dL [facility] Comment: Supplemental ranges: <140 mg/dL before meals <180 mg/dL all other times of the day Blood 02/20/2024 7:39 PM EDT 02/20/2024 7:39 PM EDT Ari Renae MD POINT OF CARE TEST O CARMELITA Performing Organization Address City/[facility]/ZIP Co de Phone Number [facility] [place] [address] * (ABNORMAL) POCT Glucose (02/20/2024 5:33 PM EDT) Glucose, POC 256(H) 65 - 199 mg/dL [facility] Comment: Supplemental ranges: <140 mg/dL before meals <180 mg/dL all other times of the day Blood 02/20/2024 5:33 PM EDT 02/20/2024 5:33 PM EDT Ari Renae MD POINT OF CARE TEST O ADITIERAKEREN Performing Organization Address City/[facility]/ZIP Co de Phone Number [facility] [place] [address] * POCT Glucose (02/20/2024 12:14 PM EDT) Glucose, POC 174 65 - 199 mg/dL [facility] Comment: Supplemental ranges: <140 mg/dL before meals <180 mg/dL all other times of the day Blood 02/20/2024 12:1 4 PM EDT 02/20/2024 12:14 PM EDT Ari Renae MD POINT OF CARE TEST O ADITIERAKEREN Performing Organization Address [facility]/ZIP Co de Phone Number [facility] [place] [address] * POCT Glucose (02/20/2024 8:20 AM EDT) Glucose, POC 97 65 - 199 mg/dL [facility] Comment: Supplemental ranges: <140 mg/dL before meals <180 mg/dL all other times of the day Blood 02/20/2024 8:20 AM EDT 02/20/2024 8:20 AM EDT Ari Renae MD POINT OF CARE TEST O ADITIERAKEREN Performing Organization Address City/[facility]/ZIP Co de Phone Number [facility] [place] [address] * (ABNORMAL) Differential, Automated (02/20/2024 5:21 AM EDT) Neutrophil % 67.5 % [facility] Neutrophil Absolute 7.71(H) 1.70 - 6.10 x10(3)/mc L [facility] Lymph % 17.3 % [facility] Lymphocytes Abs 2.0 0.9 - 3.2 x10(3)/[facility] Monocyte % 10.8 % [facility] Monocyte Abs 1.2(H) 0.3 - 0.9 x10(3)/[facility] Eos % 3.5 % [facility] Eosinophils Abs 0.4 0.0 - 0.4 x10(3)/[facility] Basophil % 0.5 % [facility] Baso Absolute 0.1 0.0 - 0.1 x10(3)/[facility] Immature Gran % 0.40 % [facility] Comment: Immature granulocytes(IG's)percentage and absolute count will include metamyelocytes, myelocytes, and promyelocytes. Blood smears from CBCs yielding IG's will be scanned manually for concordance. If this scan disagrees with the automated IG or if promyelocytes are noted, a manual differential will be performed. Immature Gran Absolute 0.04 0.00 - 0.04 x10(3)/[facility] Blood 02/20/2024 5:21 AM EDT 02/20/2024 5:35 AM EDT Narrative Resulting Agency Comment Spec In Lab Marti Garcia MD HEMATOLOGY ORDERABL ES [facility] [place] [address] * (ABNORMAL) Hemogram (02/20/2024 5:21 AM EDT) White Blood Cell 11.4(H) 4.0 - 9.5 x10(3)/[facility] [facility] Red Blood Cell 2.69(L) 4.58 - 5.54 x10(6)/[facility] LABORATORY Hemoglobin 7.6(L) 13.7 - 16.5 g/dL [facility] Hematocrit 24.6(L) 40.5 - 48.5 % [facility] Mean Cell Volume 91.4 82.9 - 93.1 fL [facility] Mean Cell Hemoglobin 28.3 27.5 - 32.1 pg [facility] Mean Cell Hemoglobin Concentration 30.9(L) 32.0 - 35.7 g/dL [facility] Platelet 448(H) 145 - 357 x10(3)/mc L [facility] RDW Standard Deviation 48.0(H) 36.0 - 45.0 fL [facility] RDW coefficient of variation 14.3(H) 11.4 - 13.8 % [facility] Mean Platelet Volume 11.0 7.6 - 12.9 [facility] LABORATORY NRBC% auto 0.0 % [facility] NRBC Absolute 0.000 0.000 - 0.000 x10(3)/mc L [facility] Blood 02/20/2024 5:21 AM EDT 02/20/2024 5:35 AM EDT Narrative Resulting Agency Comment Spec In Lab Marti Garcia MD HEMATOLOGY ORDERABL ES [facility] [place] [place] [address] * (ABNORMAL) Basic Metabolic Panel (non-fasting) (02/20/2024 5:21 AM EDT) Glucose 94 65 - 199 mg/dL [facility] Comment:Diabetes: >=200 mg/d L plus symptoms Blood Urea Nitrogen 37(H) 10 - 20 mg/dL [facility] Creatinine 6.78(H) 0.80 - 1.50 mg/dL [facility] Comment:result rechecked-[facility] Sodium 139 135 - 145 mmol/L [facility] Potassium 4.2 3.5 - 5.0 mmol/L [facility] Comment: Please note: ??Patients with WBC >100,000 may have falsely elevated Potassium levels. ??For accurate Potassium quantification in these patients send serum separator tube (gold top) for subsequent determinations. ??Contact the Clinical Chemistry Laboratory if there are any questions. Chloride 101 98 - 107 mmol/L [facility] Carbon Dioxide 26 22 - 31 mmol/L [facility] Anion Gap 12 5 - 15 mmol/L [facility] Calcium 9.0 8.5 - 10.5 mg/dL [facility] Est Glomerular Filtration Rate 9(L) >=60 mL/min/1. 73 m?? [facility] Comment: This patient's estimated GFR [...] In Lab Ari Renae MD CHEMISTRY ORDERABLES [facility] [place] [place] [address] * Vancomycin Level, Random (02/20/2024 5:21 AM EDT) Vancomycin, Random 32.7 mg/L [facility] Comment: This level is for determination of the patient's vancomycin kxbu-txkou-xsb-curve (AUC) value. Contact the inpatient pharmacy for interpretation. Blood 02/20/2024 5:21 AM EDT 02/20/2024 5:35 AM EDT Ari Renae MD CHEMISTRY ORDERABLES Performing Organization Address [facility] Co de Phone Number [facility] [place] [address] * POCT Glucose (02/20/2024 3:31 AM EDT) Glucose, POC 104 65 - 199 mg/dL [facility] Comment: Supplemental ranges: <140 mg/dL before meals <180 mg/dL all other times of the day Blood 02/20/2024 3:31 AM EDT 02/20/2024 3:31 AM EDT Ari Renae MD POINT OF CARE TEST O RDERAKEREN Performing Organization Address [facility] Co de Phone Number [facility] [place] [address] * POCT Glucose (02/19/2024 11:35 PM EDT) Glucose, POC 156 65 - 199 mg/dL [facility] Comment: Supplemental ranges: <140 mg/dL before meals <180 mg/dL all other times of the day Blood 02/19/2024 11:3 5 PM EDT 02/19/2024 11:35 PM EDT Ari Renae MD POINT OF CARE TEST O RDERAKEREN Performing Organization Address [facility] Co de Phone Number [facility] [place] [address] * (ABNORMAL) POCT Glucose (02/19/2024 7:52 PM EDT) Glucose, POC 212(H) 65 - 199 mg/dL [facility] Comment: Supplemental ranges: <140 mg/dL before meals <180 mg/dL all other times of the day Blood 02/19/2024 7:52 PM EDT 02/19/2024 7:52 PM EDT Ari Renae MD POINT OF CARE TEST O RDERABLES Performing Organization Address [facility]/ZIP Co de Phone Number [facility] [place] [address] * (ABNORMAL) POCT Glucose (02/19/2024 4:00 PM EDT) Glucose, POC 211(H) 65 - 199 mg/dL [facility] Comment: Supplemental ranges: <140 mg/dL before meals <180 mg/dL all other times of the day Blood 02/19/2024 4:00 PM EDT 02/19/2024 4:00 PM EDT Ari Renae MD POINT OF CARE TEST O RDERABLES Performing Organization Address [facility] Co de Phone Number [facility] [place] [address] * Blood culture (02/19/2024 3:37 PM EDT) Blood Culture No growth at 5 days. [facility] Blood 02/19/2024 3:37 PM EDT 02/19/2024 4:53 PM EDT Comment:Jocelyn Valera, #2 Narrative Resulting Agency Comment Spec In Lab Ruby Mcgill APRN MICROBIOLOGY - BLO OD ORDERABLES Performing Organization Address [facility]/[place] Co de Phone Number [facility] [place] [address] * (ABNORMAL) Ferritin (02/19/2024 3:05 PM EDT) Ferritin 917(H) 31 - 409 ng/mL [facility] Comment: Please note that as of 09/29/2023, the reference intervals for Ferritin have been updated. Blood Venous Draw / Unknown 02/19/2024 3:05 PM EDT 02/19/2024 3:16 PM EDT Narrative Resulting Agency Comment Spec In Lab Jordan Sepulveda MD CHEMISTRY ORDERABLES Performing Organization Address City/[facility]/ZIP Co de Phone Number [facility] [place] [address] * Blood culture (02/19/2024 3:05 PM EDT) Blood Culture No growth at 5 days. [facility] Blood 02/19/2024 3:05 PM EDT 02/19/2024 3:45 PM EDT Comment:Jocelyn Valera, #1 Narrative Resulting Agency Comment Spec In Lab Ruby Mcgill APRN MICROBIOLOGY - BLO OD ORDERABLES Performing Organization Address [facility]/[place] Co de Phone Number [facility] [place] [address] * Hepatitis B Surface Antibody (02/19/2024 3:05 PM EDT) Hepatitis B Surface Antibody, Quantitative 484.0 IU/L [facility] Comment: HepB Surface Ab Quant: Unvaccinated: < 8.5 IU/L Vaccinated: >= 11.5 IU/L Hepatitis B Surface Antibody Positive [facility] Comment: Patient is considered to be immune to HBV infection. Expected Results: Vaccinated: Positive Unvaccinated: Negative Blood 02/19/2024 3:05 PM EDT 02/19/2024 3:14 PM EDT Narrative Resulting Agency Comment Spec In Lab Ruby Mcgill APRN CHEMISTRY ORDERABL ES Performing Organization Address [facility]/[place] Co de Phone Number [facility] [place] [address] * Hepatitis B Surface Antigen (02/19/2024 3:05 PM EDT) Hepatitis B Surface Antigen Negative Negative [facility] Blood 02/19/2024 3:05 PM EDT 02/19/2024 3:14 PM EDT Narrative Resulting Agency Comment Spec In Lab Ruby Mcgill APRN CHEMISTRY ORDERABL ES Performing Organization Address [facility]/ZIP Co de Phone Number [facility] [place] [address] * POCT Glucose (02/19/2024 12:16 PM EDT) Glucose, POC 170 65 - 199 mg/dL [facility] Comment: Supplemental ranges: <140 mg/dL before meals <180 mg/dL all other times of the day Blood 02/19/2024 12:1 6 PM EDT 02/19/2024 12:16 PM EDT Ari Renae MD POINT OF CARE TEST O RDERAKEREN Performing Organization Address [facility]/[place] Co de Phone Number [facility] [place] [address] * POCT Glucose (02/19/2024 10:44 AM EDT) Glucose, POC 128 65 - 199 mg/dL [facility] Comment: Supplemental ranges: <140 mg/dL before meals <180 mg/dL all other times of the day Blood 02/19/2024 10:4 4 AM EDT 02/19/2024 10:44 AM EDT Ari Renae MD POINT OF CARE TEST O CARMELITA Performing Organization Address [facility]/[place] Co de Phone Number [facility] [place] [address] * POCT Glucose (02/19/2024 8:28 AM EDT) Glucose, POC 77 65 - 199 mg/dL [facility] Comment: Supplemental ranges: <140 mg/dL before meals <180 mg/dL all other times of the day Blood 02/19/2024 8:28 AM EDT 02/19/2024 8:28 AM EDT Ari Renae MD POINT OF CARE TEST O RDERAKEREN Performing Organization Address City/[facility]/ZIP Co de Phone Number [facility] [place] [address] * POCT Glucose (02/19/2024 8:09 AM EDT) Glucose, POC 65 65 - 199 mg/dL [facility] Comment: Supplemental ranges: <140 mg/dL before meals <180 mg/dL all other times of the day Blood 02/19/2024 8:09 AM EDT 02/19/2024 8:09 AM EDT Ari Renae MD POINT OF CARE TEST O RDERABLES Performing Organization Address City/[facility]/ZIP Co de Phone Number [facility] [place] [address] * (ABNORMAL) POCT Glucose (02/19/2024 7:48 AM EDT) Glucose, POC 64(L) 65 - 199 mg/dL [facility] Comment: Supplemental ranges: <140 mg/dL before meals <180 mg/dL all other times of the day Blood 02/19/2024 7:48 AM EDT 02/19/2024 7:48 AM EDT Ari Renae MD POINT OF CARE TEST O RDERABLES [facility] [place] [place] [address] * (ABNORMAL) Differential, Automated (02/19/2024 5:28 AM EDT) Neutrophil % 70.4 % [facility] Neutrophil Absolute 9.08(H) 1.70 - 6.10 x10(3)/mc L [facility] Lymph % 14.4 % [facility] Lymphocytes Abs 1.9 0.9 - 3.2 x10(3)/mc L [facility] Monocyte % 11.1 % [facility] Monocyte Abs 1.4(H) 0.3 - 0.9 x10(3)/mc L [facility] Eos % 3.0 % [facility] Eosinophils Abs 0.4 0.0 - 0.4 x10(3)/[facility] LABORATORY Basophil % 0.6 % [facility] Baso Absolute 0.1 0.0 - 0.1 x10(3)/[facility] LABORATORY Immature Gran % 0.50 % [facility] Comment: Immature granulocytes(IG's)percentage and absolute count will include metamyelocytes, myelocytes, and promyelocytes. Blood smears from CBCs yielding IG's will be scanned manually for concordance. If this scan disagrees with the automated IG or if promyelocytes are noted, a manual differential will be performed. Immature Gran Absolute 0.07(H) 0.00 - 0.04 x10(3)/[facility] LABORATORY Blood 02/19/2024 5:28 AM EDT 02/19/2024 5:39 AM EDT Narrative Resulting Agency Comment Spec In Lab Marti Garcia MD HEMATOLOGY ORDERABL ES [facility] [place] [place] [address] * (ABNORMAL) Hemogram (02/19/2024 5:28 AM EDT) White Blood Cell 12.9(H) 4.0 - 9.5 x10(3)/[facility] LABORATORY Red Blood Cell 2.82(L) 4.58 - 5.54 x10(6)/[facility] LABORATORY Hemoglobin 8.0(L) 13.7 - 16.5 g/dL [facility] Hematocrit 25.8(L) 40.5 - 48.5 % [facility] Mean Cell Volume 91.5 82.9 - 93.1 fL [facility] Mean Cell Hemoglobin 28.4 27.5 - 32.1 pg [facility] Mean Cell Hemoglobin Concentration 31.0(L) 32.0 - 35.7 g/dL [facility] Platelet 371(H) 145 - 357 x10(3)/mc L [facility] RDW Standard Deviation 49.1(H) 36.0 - 45.0 fL [facility] RDW coefficient of variation 14.5(H) 11.4 - 13.8 % [facility] Mean Platelet Volume 11.2 7.6 - 12.9 fL [facility] NRBC% auto 0.0 % [facility] NRBC Absolute 0.000 0.000 - 0.000 x10(3)/mc L [facility] Blood 02/19/2024 5:28 AM EDT 02/19/2024 5:39 AM EDT Narrative Resulting Agency Comment Spec In Lab Marti Garcia MD HEMATOLOGY ORDERABL ES [facility] [place] [address] * (ABNORMAL) Basic Metabolic Panel (non-fasting) (02/19/2024 5:28 AM EDT) Glucose 164 65 - 199 mg/dL [facility] Comment:Diabetes: >=200 mg/d L plus symptoms Blood Urea Nitrogen 27(H) 10 - 20 mg/dL [facility] Creatinine 4.81(H) 0.80 - 1.50 mg/dL [facility] Comment:result rechecked-KS Sodium 137 135 - 145 mmol/L [facility] Comment:result rechecked-KS Potassium 3.8 3.5 - 5.0 mmol/L [facility] Comment: result rechecked-KS Please note: ??Patients with WBC >100,000 may have falsely elevated Potassium levels. ??For accurate Potassium quantification in these patients send serum separator tube (gold top) for subsequent determinations. ??Contact the Clinical Chemistry Laboratory if there are any questions. Chloride 100 98 - 107 mmol/L [facility] Comment:result rechecked-KS Carbon Dioxide 23 22 - 31 mmol/L [facility] Anion Gap 14 5 - 15 mmol/L [facility] Calcium 8.8 8.5 - 10.5 mg/dL [facility] Est Glomerular Filtration Rate 13(L) >=60 mL/min/1. 73 m?? [facility] Comment: This patient's estimated GFR [...] Renae MD CHEMISTRY ORDERABLES Performing Organization Address City/[facility]/ZIP Co de Phone Number [facility] [place] [address] * POCT Glucose (02/19/2024 4:32 AM EDT) Glucose, POC 183 65 - 199 mg/dL [facility] Comment: Supplemental ranges: <140 mg/dL before meals <180 mg/dL all other times of the day Blood 02/19/2024 4:32 AM EDT 02/19/2024 4:32 AM EDT Ari Renae MD POINT OF CARE TEST O RDERABLES Performing Organization Address City/[facility]/ZIP Co de Phone Number [facility] [place] [address] * (ABNORMAL) POCT Glucose (02/19/2024 2:17 AM EDT) Glucose, POC 252(H) 65 - 199 mg/dL [facility] Comment: Supplemental ranges: <140 mg/dL before meals <180 mg/dL all other times of the day Blood 02/19/2024 2:17 AM EDT 02/19/2024 2:17 AM EDT Ari Renae MD POINT OF CARE TEST O CARMELITA Performing Organization Address [facility]/[place] Co de Phone Number [facility] [place] [address] * (ABNORMAL) POCT Glucose (02/19/2024 12:29 AM EDT) Glucose, POC 278(H) 65 - 199 mg/dL [facility] Comment: Supplemental ranges: <140 mg/dL before meals <180 mg/dL all other times of the day Blood 02/19/2024 12:2 9 AM EDT 02/19/2024 12:29 AM EDT Ari Renae MD POINT OF CARE TEST Vita MAE Performing Organization Address [facility] de Phone Number [facility] [place] [address] * MRSA PCR Screen ([facility]CGP/APD/[facility]H) (02/18/2024 11:02 PM EDT) [facility] MRSA PCR Negative Negative [facility] MRSA (Interp) Methicillin-resist ant Staphylococcus aureus (MRSA) is NOT DETECTED The MRSA target DNA sequences (mec and SCC) were not detected within the acceptable ranges using the Xpert MRSA NxG on the GeneXpert Dx System (Notizza). This suggests the absence of MRSA in the patient specimen submitted for testing. This test is cleared by the U.S. Food and Drug Administration for clinical use and its performance characteristics have been verified by the [facility] at [facility]. This result does not rule out the presence of any other organisms. Rare false negative results may occur if MRSA is present at low concentrations with much higher concentrations of other organisms including MRSE or S. aureus with an empty SCC cassette. [facility] Comment: [VERIFIED DATE]02.19.24 Verified By:Shaina Goff (Electronic Signature) Nasopharyngeal Swab 02/18/20 11:02 PM EDT 02/19/2024 1:56 PM EDT Comment:Specimen Type->Nasop haryngeal Swab Narrative Resulting Agency Comment Spec In Lab Ari Renae MD MOLECULAR ORDERABLES Performing Organization Address [facility]/ZIP Co de Phone Number [facility] [place] [address] * (ABNORMAL) POCT Glucose (02/18/2024 8:07 PM EDT) Glucose, POC 221(H) 65 - 199 mg/dL [facility] Comment: Supplemental ranges: <140 mg/dL before meals <180 mg/dL all other times of the day Blood 02/18/2024 8:07 PM EDT 02/18/2024 8:07 PM EDT Ari Renae MD POINT OF CARE TEST O RDERABLES Performing Organization Address [facility]/[place] Co de Phone Number [facility] [place] [address] * Specimen to Pathology (02/18/2024 7:12 PM EDT) AP Specimen 02/18/2024 7:12 PM EDT 02/18/2024 7:12 PM EDT Narrative [facility] - 02/18/2024 7:12 PM EDT Specimen requisition ordered. ??Separate Pathology report to follow Ari Renae MD PATHOLOGY/CYTOLOGY O RDERABLES Performing Organization Address [facility]/ZIP Co de Phone Number [facility] [place] [address] * Surgical Pathology Report (02/18/2024 7:02 PM EDT) Final Diagnosis [id number] ? Location: [id number]; 0426; A The signing [...] MD Verified: ??02/24/2024 17:03 ??Pathologist Performed at: ??-[facility] [place]. [place]ology, [place] [address] Diesel Engine Fitter: Karina Valencia MD, FCAP, ??CLIA Certificate: [id number] DISCUSSION The specimen shows areas of subperiosteal [...] Sections/Processi ng: Blocks submitted for decalcification: A4-A5. Heel Attacher Wood sections in 5 cassettes as follows: ?A1: ??Soft tissue margin nearest to the lesion en face ?A2: ??Heel Attacher Wood section of the lesion located at the lateral heel ?A3: ??Heel Attacher Wood section of the lesion at the posterior heel ?A4: ??Heel Attacher Wood sections of the involved calcaneus ?A5: ??Heel Attacher Wood section proximal bone margin en face ??kjs 02/24/2024 5:03 PM EDT [facility] Extremity 02/18/2024 7:02 PM EDT 02/18/2024 7:02 PM EDT Extremity 02/18/2024 7:02 PM EDT 02/18/2024 7:02 PM EDT Ari Renae MD PATHOLOGY/CYTOLOGY O RDERABLES [facility] [place] [place] [address] * Request For 2nd Read CT Lower Extremity (02/18/2024 5:13 PM EDT) WORKSTATION ID [id number] [facility] Anatomical Region Laterality Modality Hip, Leg, Knee, [...] have questions please contact the health career orientation teacher that requested your imaging first. ? Electronically signed by: Romeo Saunders MD, [facility] ??([phone]), at 02/18/2024 7:42 PM Narrative 02/18/2024 7:42 PM EDT EXAMINATION: REQUEST FOR 2ND READ CT LOWER EXTREMITY CLINICAL HISTORY: concern for osteo; Sending Institution [facility]; Date of exam [id number]; I believe a reinterpretation of this exam may alter care of Patient. Yes TECHNIQUE: Axial, coronal, and sagittal reconstructed images of a noncontrast CT of the left lower leg and foot performed 02/17/[address] [facility] was submitted for reinterpretation on 02/18/2024. The outside report is available for review at time of this interpretation. COMPARISON: CT left foot 12/19/2023 performed at [facility] FINDINGS: There is a deep soft tissue [...] atrophy. Procedure Note Romeo Saunders MD - 02/18/2024 EXAMINATION: REQUEST FOR 2ND READ CT LOWER EXTREMITY CLINICAL HISTORY: concern for osteo; Sending Institution [facility]; Date ofexam 20240217; I believe a reinterpretation of this exam may alter care ofPatient. Yes TECHNIQUE: Axial, coronal, and sagittal reconstructed images of a noncontrast CT ofthe left lower leg and foot performed 02/17/2024 at [facility] was submitted for reinterpretation on 02/18/2024. The outsidereport is available for review at time of this interpretation. COMPARISON: CT left foot 12/19/2023 performed at [facility] FINDINGS: There is a deep soft [...] who have questions please contactthe health career orientation teacher that requested your imaging first. Electronically signed by: Romeo Saunders MD, [facility]([phone]), at 02/18/2024 7:42 PM Maria A Westrichyefricr [employer]ATOR INSULATION IMG OUTSIDE INTER PRETATION ORDERABLES * XR Foot Min 3 views Bilat (Generic) (02/18/2024 4:39 PM EDT) WORKSTATION ID [id number] RAD Anatomical Region Laterality Modality Foot Bilateral Digital [...] have questions please contact the health career orientation teacher that requested your imaging first. ? Narrative 02/18/2024 4:51 PM EDT EXAMINATION: XR [...] who have questions please contactthe health career orientation teacher that requested your imaging first. Electronically signed by: Romeo Saunders MD, [facility]([phone]), at 02/18/2024 4:51 PM Macario Thomas MD IMG DX ORDERABLES * MELLY, legs, multiple levels (02/18/2024 3:31 PM EDT) VB Text Report Department: Vascular Surgery Lab Patient: [id number] (GERSON BRUNER) CPT: 05691 Referring Physician: SEA MAIN ?? Phone: Indications: bilateral heel wounds, LT worse than RT, ? peripheral perfusion Diabetes mellitus: Yes Findings: Right ?Pressure (mm Hg) ??Waveform ?TBI ?? Brachial Artery ?190 ? Dorsalis Pedis (Ankle) Artery ?>240 ?[place]-Biphasic ? Posterior Tibial (Ankle) Artery ??>240 ?Monophasic [...] EDT) pH, Venous 7.39 7.32 - 7.42 [facility] PCO2, Venous 48 41 - 51 mmHg [facility] PO2, Venous 22(L) 25 - 40 mmHg [facility] Bicarbonate, Venous 28.3 mmol/L [facility] Base Excess, Venous 3.3 mmol/L [facility] Hgb Blood Gas 10.4(L) 13.7 - 16.5 g/dL [facility] Oxyhemoglobin, Venous 35.5 % [facility] Carboxyhemoglob in, Venous 6.9 % [facility] Comment: Nonsmokers: 0.5-1.5% COHB Smokers: Variable, but usually less than 10% Toxic: 20-30% COHB Lethal: Greater than 60% COHB Methemoglobin, Venous 0.2 <=1.5 % [facility] Na Whole Blood 133(L) 135 - 145 mmol/L [facility] K Whole Blood 3.7 3.5 - 5.0 mmol/L [facility] Comment: Please note: Patients with WBC >100,000 may have falsely elevated Potassium levels. Contact the Clinical Chemistry Laboratory if there are any questions. ICa Whole Blood 1.17 1.15 - 1.33 mmol/L [facility] Comment: Note: ??Total bilirubin higher than 20 mg/dL may lead to falsely low ionized calcium. CL Whole Blood 95(L) 98 - 107 mmol/L [facility] Gluc Whole Bld 207(H) 65 - 199 mg/dL [facility] Comment:Diabetes: >=200 mg/d L plus symptoms Lactate WB 1.0 0.5 - 2.2 mmol/L [facility] Blood Gas Source Venous [facility] Blood 02/18/2024 3:16 PM EDT 02/18/2024 3:[address] Rei Gasca MD POINT OF CARE TEST O RDERABLES Performing Organization Address City/[facility]/ZIP Co de Phone Number [facility] [place] [place] [address] * Type and screen ([facility]CGP/CHASE) (02/18/2024 3:07 PM EDT) ABORH Type A POSITIVE [facility] Patient BB History Found [facility] Expires at [id number] on: 02-21-2024 [facility] Ab Screen Interp Negative [facility] Blood 02/18/2024 3:07 PM EDT 02/18/2024 3:00 PM EDT Narrative [facility] - 02/18/2024 3:00 PM EDT This Type and Screen result is only valid at the [facility] Resulting Agency Comment Spec In Lab Macario Thomas MD BLOOD BANK LAB ORDER FRANSISCO Performing Organization Address [facility]/ZIP Co de Phone Number [facility] [place] [address] * ABORH Recheck Status (02/18/2024 3:00 PM EDT) ABORH Type Recheck Completed [facility] Blood 02/18/2024 3:00 PM EDT 02/18/2024 3:32 PM EDT Narrative Resulting Agency Comment Spec In Lab Thee PALMER BLOOD BANK LAB ORDER FRANSISCO [facility] [place] [address] * Blood culture (02/18/2024 3:00 PM EDT) Blood Culture No growth at 5 days. [facility] Blood 02/18/2024 3:00 PM EDT 02/18/2024 4:05 PM EDT Comment:R ac Narrative Resulting Agency Comment Spec In Lab Maria A Mallory APRN MICROBIOLOGY - BL OOD ORDERABLES Performing Organization Address [facility]/ZIP Co de Phone Number [facility] [place] [place] [address] * EKG 12 Lead (02/18/2024 2:42 PM EDT) Ventricular rate 73 BPM MUSE SYSTEM Atrial Rate 73 BPM MUSE SYSTEM P-R Interval 130 ms MUSE SYSTEM QRS Duration 90 ms MUSE SYSTEM Q-T Interval 424 ms MUSE SYSTEM QTC Calculated (Bezet) 467 ms MUSE SYSTEM Calculated P [place] 41 degrees MUSE SYSTEM Calculated R [place] 31 degrees MUSE SYSTEM Calculated T [place] 49 degrees MUSE SYSTEM INTERPRETATION Normal sinus rhythm Normal ECG When compared with ECG of 01-SEP-2018 14:08, Nonspecific T wave abnormality now evident in Lateral leads Confirmed by MD Samia, Blanca ([id number]) on 02/21/2024 6:28:52 AM MUSE SYSTEM 02/18/2024 2:42 PM EDT 02/21/2024 6:28 AM EDT Maria A Mallory APRN ECG ORDERABLES Performing Organization Address [facility]/State/ZIP Co de Phone Number MUSE SYSTEM * (ABNORMAL) Sedimentation rate (02/18/2024 2:15 PM EDT) Sedimentation Rate Automated 108(H) 2 - 37 mm/hr [facility] Comment: Effective October 04, 2019 new capillary photometric technology has resulted in a change in reference ranges. It is recommended that each ESR result be reviewed with its own age appropriate reference range. Blood Venous Draw / Unknown 02/18/2024 2:15 PM EDT 02/18/2024 2:37 PM EDT Narrative Resulting Agency Comment Spec In Lab Thee PALMER HEMATOLOGY ORDERABLE S Performing Organization Address [facility]/ZIP Co de Phone Number [facility] [place] [place] [address] * (ABNORMAL) CRP, acute inflammation (02/18/2024 2:15 PM EDT) Pathologist [facility] C-Reactive Protein 148.6(H) <=4.9 mg/L [facility] Blood Venous Draw / Unknown 02/18/2024 2:15 PM EDT 02/18/2024 2:44 PM EDT Narrative Resulting Agency Comment Spec In Lab Thee PALMER CHEMISTRY ORDERABLES Performing Organization Address [facility]/RUST Co de Phone Number [facility] [place] [address] * Gold Tube HOLD (02/18/2024 2:15 PM EDT) Pathologist [facility] Gold Hold Sample in lab. [facility] Blood Venous Draw / Unknown 02/18/2024 2:15 PM EDT 02/18/2024 2:37 PM EDT Maria A Mallory APRN CHEMISTRY ORDERAB LES Performing Organization Address [facility]/ZIP Co de Phone Number [facility] [place] [place] [address] * (ABNORMAL) Differential, Automated (02/18/2024 2:15 PM EDT) Pathologist [facility] Neutrophil % 76.1 % [facility] Neutrophil Absolute 10.53(H) 1.70 - 6.10 x10(3)/mc L [facility] Lymph % 11.7 % [facility] Lymphocytes Abs 1.6 0.9 - 3.2 x10(3)/mc L [facility] Monocyte % 9.4 % [facility] Monocyte Abs 1.3(H) 0.3 - 0.9 x10(3)/[facility] Eos % 2.0 % [facility] Eosinophils Abs 0.3 0.0 - 0.4 x10(3)/[facility] Basophil % 0.4 % [facility] Baso Absolute 0.0 0.0 - 0.1 x10(3)/[facility] Immature Gran % 0.40 % [facility] Comment: Immature granulocytes(IG's)percentage and absolute count will include metamyelocytes, myelocytes, and promyelocytes. Blood smears from CBCs yielding IG's will be scanned manually for concordance. If this scan disagrees with the automated IG or if promyelocytes are noted, a manual differential will be performed. Immature Gran Absolute 0.06(H) 0.00 - 0.04 x10(3)/[facility] Blood 02/18/2024 2:15 PM EDT 02/18/2024 2:37 PM EDT Narrative Resulting Agency Comment Spec In Lab Maria A Mallory APRN HEMATOLOGY ORDERA BLES [facility] [place] [place] [address] * (ABNORMAL) Hemogram (02/18/2024 2:15 PM EDT) White Blood Cell 13.8(H) 4.0 - 9.5 x10(3)/[facility] Red Blood Cell 2.52(L) 4.58 - 5.54 x10(6)/[facility] Hemoglobin 7.2(L) 13.7 - 16.5 g/dL [facility] Hematocrit 22.1(L) 40.5 - 48.5 % [facility] Mean Cell Volume 87.7 82.9 - 93.1 fL [facility] Mean Cell Hemoglobin 28.6 27.5 - 32.1 pg [facility] Mean Cell Hemoglobin Concentration 32.6 32.0 - 35.7 g/dL [facility] Platelet 440(H) 145 - 357 x10(3)/mc L [facility] RDW Standard Deviation 44.5 36.0 - 45.0 [facility] RDW coefficient of variation 13.8 11.4 - 13.8 % [facility] Mean Platelet Volume 10.9 7.6 - 12.9 [facility] NRBC% auto 0.0 % [facility] NRBC Absolute 0.000 0.000 - 0.000 x10(3)/mc L [facility] Blood 02/18/2024 2:15 PM EDT 02/18/2024 2:37 PM EDT Narrative Resulting Agency Comment Spec In Lab Maria Azoe Mallory APRN HEMATOLOGY ORDERA BLES Performing Organization Address [facility]/ZIP Co de Phone Number [facility] [place] [address] * APTT (02/18/2024 2:15 PM EDT) Partial Thromboplastin Time 32 25 - 37 sec [facility] Comment: The PTT is NOT appropriate for heparin monitoring. Use the Anti-Xa level for heparin monitoring (HEP UFH) or LMWH monitoring (HEP LMW). A PTT less than 37 seconds generally indicates adequate hemostasis. Blood 02/18/2024 2:15 PM EDT 02/18/2024 2:37 PM EDT Narrative Resulting Agency Comment Spec In Lab Maria Azoe Velezky [employer] HEMATOLOGY ORDERA BLES Performing Organization Address [facility]/ZIP Co de Phone Number [facility] [place] [address] * (ABNORMAL) Prothrombin Time (02/18/2024 2:15 PM EDT) Prothrombin Time 13.2(H) 9.4 - 12.5 sec [facility] International Normalization Ratio 1.2 [facility] Comment: An INR <2.0 indicates [...] APRN HEMATOLOGY ORDERA BLES Performing Organization Address [facility]/ZIP Co de Phone Number [facility] [place] [address] * Blood culture (02/18/2024 2:15 PM EDT) Blood Culture No growth at 5 days. [facility] Blood ANTECUBITAL REGION STRUCTURE / Unknown 02/18/2024 2:15 PM EDT 02/18/2024 2:46 PM EDT Narrative Resulting Agency Comment Spec In Lab Maria A Mallory APRN MICROBIOLOGY - BL OOD ORDERABLES Performing Organization Address City/[facility]/ZIP Co de Phone Number [facility] [place] [address] * (ABNORMAL) Basic Metabolic Panel (non-fasting) (02/18/2024 2:15 PM EDT) Glucose 211(H) 65 - 199 mg/dL [facility] Comment:Diabetes: >=200 mg/d L plus symptoms Blood Urea Nitrogen 18 10 - 20 mg/dL [facility] Creatinine 3.48(H) 0.80 - 1.50 mg/dL [facility] Sodium 135 135 - 145 mmol/L [facility] Potassium 3.7 3.5 - 5.0 mmol/L [facility] Comment: Please note: ??Patients with WBC >100,000 may have falsely elevated Potassium levels. ??For accurate Potassium quantification in these patients send serum separator tube (gold top) for subsequent determinations. ??Contact the Clinical Chemistry Laboratory if there are any questions. Chloride 97(L) 98 - 107 mmol/L [facility] Carbon Dioxide 27 22 - 31 mmol/L [facility] Anion Gap 11 5 - 15 mmol/L [facility] Calcium 8.6 8.5 - 10.5 mg/dL [facility] Est Glomerular Filtration Rate 20(L) >=60 mL/min/1. 73 m?? [facility] Comment: This patient's estimated GFR [...] Spec In Lab Maria A Mallory APRN CHEMISTRY ORDERAB LES [facility] [place] [address] documented in this encounter Visit Diagnoses Not on filedocumented in this encounter Admitting Diagnoses Diagnosis Non-healing [...] Wed02/19/24 at 0900, Until Discontinued, Routine Given 02/25/2024 12:17 PM EDT 10 mg Given 02/24/2024 8:14 AM EDT 10 mg Given 02/23/2024 1:00 PM EDT 10 mg aspirin chewable tablet 81 mg 81 mg, Oral, DAILY, First dose on Wed02/19/24 at 0900, Until Discontinued, Routine Given 02/25/2024 [...] Given 02/24/2024 8:13 AM EDT 12.5 mg cholecalciferol (Vitamin D3) tablet [...] Given 02/23/2024 1:00 PM EDT 120 mg glucagon (Glucagen) (1 mg/mL) injection solution [...] 2:38 PM EDT 15 g of glucose heparin (porcine) (5,000 units/1 mL) subcutaneous injection [...] dose if going to dialysis., Routine insulin lispro (HumaLOG;Admelog) (100 unit/mL) subcutaneous [...] Given 02/23/2024 6:39 PM EDT 1 Units methocarbamoL (Robaxin) tablet 500 mg 500 mg, Oral, 3 TIMES DAILY PRN, Starting on Wed02/22/24 at 0201, Until Wed02/25/24 at 1806, Muscle spasms, Routine Given 02/25/2024 5:39 AM EDT 500 mg Given 02/24/2024 9:33 PM EDT 500 mg Given 02/24/2024 5:59 AM EDT 500 mg oxyCODONE (Roxicodone) tablet 10 mg 10 [...] at 1806, Pain, moderate pain (4-6), Routine pantoprazole EC (Protonix) tablet 40 mg 40 mg, Oral, DAILY, First dose on Wed02/24/24 at 1800, Until Discontinued, DO NOT CRUSH OR OPEN, Routine Given 02/25/2024 12:17 PM EDT 40 mg Given 02/24/2024 6:00 PM EDT 40 mg polyethylene glycoL (Miralax) packet 17 g 17 [...] Given 02/24/2024 8:13 AM EDT 100 mg senna-docusate (Pericolace) 8.6-50 mg per tablet 2 [...] end of treatment, contact MD., Dialysis (Intra-Procedure) vitamin B Complex-vitamin C-folic Acid (Megan-meggan) 0.8 mg per tablet 1 tablet 1 tablet, Oral, DAILY, First dose on 02/19/24 at 1530, Until Discontinued, Routine Given 02/25/2024 [...] Ortega RN)1800 (Not Given - Provider: Melissa Benietz RN - Reason: Patient/family refused)2337 (Given - Provider: Zita Michelle RN) 0539 (Given - Provider: Zita Michelle RN)1215 (Given - Provider: Smitha Layne RN) amLODIPine (Norvasc) tablet 10 mg 10 mg, Oral, DAILY, First dose on 02/19/24 at 0900, Until Discontinued, Routine 1300 (Given - Provider: Kurt Ortega RN) 0814 (Given - Provider: Kurt Ortega RN) 1217 (Given - Provider: Smitha Layne RN) aspirin chewable tablet 81 mg 81 mg, Oral, DAILY, First dose on Wed02/19/24 at 0900, Until Discontinued, Routine 1523 (Given [...] 120 mg, Oral, DAILY, First dose on 02/19/24 at 0900, Until Discontinued, DO NOT CRUSH [...] First dose (after last modification) on Viridiana 02/24/24 at 0900, Until Discontinued, Hold dose if [...] on Wed02/21/24 at 0900, Until Discontinued, Routine 0936 (Given - Provider: Mirna Blake LPN) insulin lispro (HumaLOG;Admelog) (100 unit/mL) subcutaneous injection vial 0-15 Units (CANCELED) 0-15 Units, Subcutaneous, 3 TIMES DAILY WITH MEALS, First dose on Wed02/21/24 at 1200, Until Discontinued, MEAL ASSOCIATED Give 1 unit for every 6 grams carbohydrate. Hold if not eating or if BG less than 70 mg/dL. , Routine 0936 (Given - Provider: Mirna Blake LPN)1200 (Not [...] Comment: BG 69)1600 (Not Given - Provider: Golide Mendoza RN - Reason: Order parameters not [...] about diet orders)1700 (Not Given - Provider: Meilssa Benitez RN - Reason: See comment - [...] Benitez RN) 1217 (Given - Provider: Smitha Layne RN) piperacillin-tazobactam (Zosyn) 3.375 g vial attach [...] Patient/family refused) 0900 (Not Given - Provider: Smihta Layne RN - Reason: Patient/family refused) pregabalin [...] RN)2133 (Given - Provider: Zita Michelle RN) 1219 (Given - Provider: Smitha Layne RN) vancomycin (Vancocin) 500 mg vial attach to [...] Mendoza RN) vitamin B Complex-vitamin C-folic Acid (Megan-megagn) 0.8 mg per tablet 1 tablet 1 tablet, Oral, DAILY, First dose on Wed02/19/24 at 1530, Until Discontinued, Routine 1301 (Given - Provider: Kurt Ortega RN) 0812 (Given - Provider: Kurt Ortega RN) 1214 (Given - Provider: Smitha Layne RN) PRN Medication Order 02/23/2024 02/24/2024 02/25/2024 bisacodyL (Dulcolax) suppository 10 mg 10 mg, Rectal, DAILY PRN, Starting on Wed02/22/24 at 0911, Until Wed02/25/24 at 1806, Constipation, Routine calcium carbonate (TUMS) chewable tablet 500 mg (CANCELED) 500 mg, Oral, DAILY PRN, Starting on Wed02/24/24 at 2042, Until Wed02/25/24 at 1132, Heartburn, Routine 2132 (Given - Provider: Zita Michelle RN) dextrose 10% infusion(Linked Group 2) 250 mL, [...] on dialysis 0937 (Given - Provider: Sandra Villanueva, VIDYA) glucagon (Glucagen) (1 mg/mL) injection solution 1 [...] Michelle RN)1258 (Given - Provider: Kurt Ortega RN)210 (Given - Provider: Zita Michelle RN) 0559 (Given - Provider: Zita Michelle, VIDYA)213 (Given - Provider: Zita Michelle, VIDYA) 0539 (Given - Provider: Zita Michelle RN) [...] 0517 (See Alternative - Provider: Zita Michelle RN)0936 (See Alternative - Provider: Mirna Blake LPN)1258 (See Alternative - Provider: Kurt Ortega RN)1837 (See Alternative - Provider: Kurt Ortega RN)2356 (See Alternative - Provider: Zita Michelle RN) 0402 (See Alternative - Provider: Zita Michelle RN)0811 (See Alternative - Provider: Kurt Ortega RN)1158 (See Alternative - Provider: Kurt Ortega RN)2337 [...] Routine documented in this encounter Care Teams Rn Bariatric Relationship Specialty Start Date End Date Ken Greer MD PCP - General Family Medicine 12/30/23 05/15/24 documented as of this encounter
--- OUTSIDE RECORDS SUMMARY | 2024-12-05 12:39 | XMS_ITS | Encounter Summary ---
Author [facility] [place] [address] Care Team Providers Care [employer] Caser Name Role Phone Ken Greer MD Primary Care Provider Reason for Visit * Auth/Cert (Routine) Specialty Diagnoses / Procedures Referred By Nader gardiner Referred To Contact Diagnoses Wound infection Non-healing open wound of heel Beach, Kristi Smith MD [facility] [place] [address] [facility] Referral ID Status Reason Start Date Expiration Date Visits Re quested Visits Authorized [id number] 1 1 Encounter Details Date Type Department Care Team (Late st Contact Info) Description 02/18/2024 6:26 PM EDT Anesthesia Event [place] [address] Paige Larry MD [facility] [place] [address] Navi Hinson CRNA [facility] [place] [address] Anesthesia Record Procedure Summary Procedure Name Responsible Anesthesiologist Anesthesia Start Time Anesthesia Stop Time @AMPUTATION, BELOW-KNEE, OPEN, GUILLOTINE (WRVU 9.79) (Left: Leg Upper) Paige Larry MD 02/18/24 1826 02/18/241922 Events Date Time Event Comment 02/18/2024 1816 1826 AN Verify 1826 Start 1826 An Start Data 1847 An Induction 1849 An Intubation 1849 Anesthesia Ready 1857 Procedure Start 1901 Handoff Intra-procedure anesthesia care was transferred after review of the patient's history, current anesthetic/surgical status and procedural plan, anticipated issues and expected post-operative course (including disposition.) Navi Hinson CRNA 1922 Extubation/LMA Out 1922 an stop data 1922 Recovery or ICU Handoff Annemarie ent care was transferred to the destination unit staff after review of the patient's medical history, current anesthetic/surgical status and plan, according to the Provider Handoff Checklist. 1922 Stop Meds Name Total fentaNYL 25 mcg IV Lidocaine 50 mg Propofol 120 mg PHENYLephrine 160 mcg Ondansetron 4 mg piperacillin-tazobactam 3.375 g succinylcholine 80 mg PHENYLephrine INF 1,120 mcg * Agents Name O2 Air N2O Sevoflurane (et) * Blood No blood administrations on file. Lines, Drains, and Airways Type Details Placement Removal Incision 02/18/24; 1855; Left , anterior, distal, lower; leg 02/18/241855 by Oksana Santos RN PIV 02/18/24; 20 gauge; basilic vein (medial side of arm), right; site symptomatic, catheter/device intact, removed per policy/procedure; 02/20/24; 181902/18/24 0000 by Cheyenne Hansen RN 02/20/241819 by Naun Randolph RN ETT Mask Ventilation: Ea sy (1); ETT Type: Cuffed, Oral; ETT Size: 7.5 mm; Mac Blade: 3; Notes: Asleep, Pre-O2; Attempts: 1; Laryngoscopy Grade: 1; ETT Placement Verified By: Auscultation, Capnometry, Visual; Secured at Teeth: 23 cm; Inserted by: navi hinson; Removal Date: 02/18/24; Removal Time: 192202/18/241848 by Archie West CRNA 02/18/241922 by Archie West CRNA documented in this encounter Social History [...] place to sleep or slept in a chcf (including now)? No 02/20/2024 DH IPV Inpatient [...] OR Notes * Anesthesia Postprocedure Evaluation - Paige Larry MD - 02/19/2024 4:11 AM EDT Department of Anesthesiology Post-procedure Note Patient: Gerson Bruner Procedure Summary Date: 02/18/24 Room / Location: [facility] OR [facility] MAIN OR Anesthesia Start: 1825 Anesthesia Stop: 1922 Procedure: @AMPUTATION, BELOW-KNEE, OPEN, GUILLOTINE (WRVU 9.79) (Left: Leg Upper) Diagnosis: (LLE wound) Surgeons: Kristi Renae MD Responsible Provider: Paige Larry MD Anesthesia Type: general ASA Status: 3 All Anesthesia Providers: Anesthesiologist: Paige Larry MD; Kristel Church MD; Beryl White MD INSURANCE CUSTOMER SERVICE SPECIALIST: Navi Hinson CRNA; Archie West CRNA Vitals Value Taken Time BP 160/69 02/18/242029 Temp 37.5 ??C (99.5 ??F) 02/18/242014 Pulse 76 02/18/242044 Resp 14 02/18/242044 SpO2 93 % 02/18/242050 Pain Level 0 02/18/241926 Vitals shown include unfiled device data. Patient Location: Floor Level of Consciousness: Awake and Alert Pain Management: Satisfactory Analgesia PONV: None Cardiovascular Status: At Baseline and Hemodynamically Stable Respiratory Status: At Baseline and Room Air Postoperative Fluid Status: Intravascular EUvolemia Possible Anesthetic Complications: NONE apparent at time of evaluation Final Primary Anesthesia Type: General (The anesthetic type performed was the same as planned.) Comments: PAIGE LARRY MD * Anesthesia Preprocedure Evaluation - Kristel Church MD - 02/18/2024 5:59 PM EDT Pre-Anesthesia Evaluation for: Gerson Bruner a 58 y.o. male. Procedure(s): @AMPUTATION, BELOW-KNEE, OPEN, GUILLOTINE (WRVU 9.79) Patient Active Problem List Diagnosis Date Noted TIA (transient ischemic attack) 07/19/2020 Right sided [...] 11.9) performed by Scout Reese MD at [facility] MAIN OR PRO COLONOSCOPY, REMV LESN, SNARE N/A 09/26/2019 COLONOSCOPY, POLYPECTOMY, REMOVAL LESION BY SNARE (VU 4.67) performed by Kaye Gibbs MD at [facility] ENDOSCOPY Social History Tobacco Use Smoking status: [...] reaction(s): Unsure Zoloft [Sertraline] Other reaction(s): Unsure Medications: MAR and/or home medications have been reviewed. Physical Exam: Preprocedure Vitals Current as of 02/18/24 1759 BP: 133/65 Pulse: 73 Resp: 16 SpO2: 96 Temp: 36.3 ??C (97.3 ??F) Height: Weight: 86.2 kg (190 lb) (02/18/24) BMI: IBW: Last edited 02/18/24 1406 by ED Airway Assessment: Mallampati: I TM distance: >3 FB Neck ROM: full Cardiovascular Assessment: system normal Pulmonary Assessment: (+) wheezes Dental Assessment: (+) upper dentures Misc Assessment: IV access: Peripheral line Other exam findings: RUE fistula Last Filed Perioperative Cognitive Screening None Anesthesia Plan: ASA 3 general, with a(n) intravenous induction 58yoM with PMHx of HTN, HLD, T2DM, tobacco use, ESRD on iHD (MWF, last dialysis session today 02/17)with severe PVD and LLE heel wound, new onset fevers and imaging concerning for osteomyelitis s/f LEFT below the knee amputation with Dr. Renae. AnesHx: Previous regional and MAC. No prior airway records available. CVHx: EKG 4/26/24: NSR at 73 bpm ECHO 02/2019: SUMMARY: 1. There is normal [...] See remainder of report for additional findings. Plan: GA w/ ETT Standard ASA monitors Adequate PIV access Region - Other Informed Consent: Anesthetic plan and risks discussed with patient. Use of blood products discussed with patient who. Plan discussed with INSURANCE CUSTOMER SERVICE SPECIALIST and attending. Anesthesia Screening documented in this encounter Plan of Treatment Not on file documented as of this encounter Visit Diagnoses Not on filedocumented in this encounter Administered Medications Inactive Administered Medications - up to 3 most recent administrations Medication Order MAR Action Action Date Dose Rate Site fentaNYL (pf) (50 mcg/mL) multi-dose injection Intravenous, PRN, Starting on Wed02/18/24 at 1856, Until Wed02/18/24 at 192, Anesthesia Intra-op, Routine Given 02/18/2024 6:56 PM EDT 25 mcg lidocaine (pf) (Xylocaine) (20 mg/mL) 2% injection syringe Intravenous, PRN, Starting on Wed02/18/24 at 1847, Until Wed02/18/24 at 192, Anesthesia Intra-op, Routine Given 02/18/2024 6:47 PM EDT 50 mg ondansetron (pf) (Zofran) (2 mg/mL) injection Intravenous, PRN, Starting on Wed02/18/24 at 1905, Until Wed02/18/24 at 192, Anesthesia Intra-op, Routine Given 02/18/2024 7:05 PM EDT 4 mg PHENYLephrine (Escobar-Synephrine) (80 mcg/mL) in sodium chloride 0.9% 250 mL infusion Intravenous, CONTINUOUS PRN, Starting on Wed02/18/24 at 1855, Until Wed02/18/24 at 192, Anesthesia Intra-op, Routine New Bag 02/18/2024 6:55 PM EDT 40 mcg/min 30 mL/hr PHENYLephrine in NS (PF) (ESCOBAR-SYNEPHRINE) 0.8 mg/10 mL (80 mcg/mL) multi-dose injection Syringe Intravenous, PRN, Starting on Wed02/18/24 at 1855, Until Wed02/18/24 at 1923, Anesthesia Intra-op, Routine Given 02/18/2024 6:55 PM EDT 160 mcg piperacillin-tazobactam (Zosyn) injection Intravenous, PRN, Starting on Wed02/18/24 at 1858, Until Wed02/18/24 at 1923, Anesthesia Intra-op, Routine Given 02/18/2024 6:58 PM EDT 3.375 g propofoL (Diprivan) 10 mg/mL bolus injection (Anesthesia) Intravenous, PRN, Starting on Wed02/18/24 at 1847, Until Wed02/18/24 at 1923, Anesthesia Intra-op Given 02/18/2024 6:47 PM EDT 120 mg succinylcholine (Anectine;Quelicin) (20 mg/mL) injection Intravenous, PRN, Starting on Wed02/18/24 at 1847, Until Wed02/18/24 at 1923, Anesthesia Intra-op, Routine Given 02/18/2024 6:47 PM EDT 80 mg documented in this encounter Care Teams [employer] Relationship Specialty Start Date End Date Ken Greer MD PCP - General Family Medicine 12/30/23 05/15/24 documented as of this encounter
--- OUTSIDE RECORDS SUMMARY | 2024-12-05 12:40 | XMS_ITS | Encounter Summary ---
Author Organization [facility] [place] [address] Care Team Providers Care Medical Economics Consultant Name Role Phone Candace Maurice APRN Primary Care Provider Reason for Referral * Surgical (Routine) - Closed Specialty Diagnoses / Procedures Referred By Nader gardiner Referred To Contact Gastroenterology Diagnoses Tubular adenoma of colon Candace Maurice APRN [address] [place] [address] [facility] [place] [address] Referral ID Status Reason Start Date Expiration Date V isits Requested Visits Authorized [id number] Closed Test Only PCP Updated and/or Approved 08/10/2022 08/10/2023 1 1 Encounter Details Date Type Department Care Team (Latest Contact Info) Description 08/10/2022 Transcribe Orders eDH Incoming Referrals [phone] Candace Maurice APRN [address], [place] [id number] Tubular adenoma of colon Social History Tobacco Use Types Packs/Day Years Used Date Smoking Tobacco: Light Smoker Cigarettes Last attempted t o quit: 12/26/2018 Smokeless Tobacco: Never Comments:smoking a few a day Alcohol Use Standard Drinks/Week Comments No 0 (1 standard drink = 0.6 oz pur e alcohol) Sex and Gender Information Value Date Recorded Sex Assigned at Not on file Gender Identity Not on file Sexual Orientation Not on file documented as of this encounter Plan of Treatment Scheduled Referrals Name Type Priority Associated Diagnoses Order Schedule REFERRAL TO COLONOSCOPY PROCEDURE Outpatient Referral Routine Tubular adenoma of colon Ordered: 08/10/2022 documented as of this encounter Visit Diagnoses Diagnosis Tubular adenoma of colon Benign neoplasm of colon documented in this encounter Care Teams Medical Economics Consultant Relationship Specialty Start Date End Date Candace MauriceMONA [place] [address] PCP - General Family Medicine 08/10/22 12/29/23 documented as of this encounter
--- OUTSIDE RECORDS SUMMARY | 2024-12-05 12:40 | XMS_ITS | Encounter Summary ---
Author Organization [facility] Address [facility] [place] [address] Care Team Providers Care Rib Bender Name Role Phone Candace Maurice APRN Primary Care Provider [phone] Encounter Details Date Type Department Care Team (Late st Contact Info) Description 12/17/2023 Ancillary Procedure Radiology Library at [facility] [place] [address] Romeo Quiroga MD [facility] [place] [address] Social History Tobacco Use Types Packs/Day Years [...] Diagnosis Comments FILM LIBRARY STORAGE ONLY DX FOOT Routine 12/17/2023 12:00 AM EST documented in this encounter Results * Film Library- Storage Only DX Foot (12/17/2023 12:00 AM EST) Narrative RAD - 12/19/2023 11:51 AM EST This exam is auto-finalizing. It's purpose is for storage only. Romeo Quiroga MD [facility]M LIBRARY ORD ERABLES [place], [place] documented in this encounter Visit Diagnoses Not on filedocumented in this encounter Care Teams Rib Bender Relationship Specialty Start Date End Date Candace Maurice APRN [address] [place] [address] PCP - General Family Medicine 08/10/22 12/29/23 documented as of this encounter
--- OUTSIDE RECORDS SUMMARY | 2024-12-05 12:40 | XMS_ITS | Encounter Summary ---
Author Organization [facility] Address [facility] [address] [place] [address] Care Team Providers Care Mechanical Laboratory Technician Name Role Phone Lauri Barbosa DNP Primary Care Provider Reason for Visit * Reason Comments Medication Refill Encounter Details Date Type Department Care Team (Late st Contact Info) Description 11/18/2019 [place] [address] Jossy Sen APRN [facility] [place] [address] Social History Tobacco Use Types Packs/Day Years [...] on filedocumented in this encounter Care Teams Mechanical Laboratory Technician Relationship Specialty Start Date End Date Lauri Barbosa DNP [address] [place] [address] PCP - General Family Medicine 02/06/19 08/09/22 documented as of this encounter
--- OUTSIDE RECORDS SUMMARY | 2024-12-05 12:40 | XMS_ITS | Encounter Summary ---
Author Organization [facility] Address [facility] [place] [address] Care Team Providers Care Planning Management It Specialist Name Role Phone Lauri Barbosa DNP Primary Care Provider Encounter Details Date Type Department Care Team (Late st Contact Info) Description 06/06/2021 Orders Only [place] [address] Agustin Espinosa MD [facility] [address] ESRD (end stage renal disease) Social History Tobacco Use Types Packs/Day Years [...] Diagnoses Diagnosis ESRD (end stage renal disease) End stage renal disease documented in this encounter Care Teams Planning Management It Specialist Relationship Specialty Start Date End Date Lauri Barbosa DNP [address] [place], [place] [id number] PCP - General Family Medicine 02/06/19 08/09/22 documented as of this encounter
--- OUTSIDE RECORDS SUMMARY | 2024-12-05 12:40 | XMS_ITS | Encounter Summary ---
Author Organization [facility] Address [facility] [place] [address] Care Team Providers Care Mobile Home Installer Name Role Phone Lauri Barbosa DNP Primary Care Provider [phone] Reason for Visit * Reason Comments Medication Refill Encounter Details Date Type Department Care Team (Late st Contact Info) Description 11/21/2019 Refill [place] [address] Agustin Espinosa MD [facility] [place] [address] Social History Tobacco Use Types Packs/Day Years [...] filedocumented in this encounter Care Teams Mobile Home Installer Relationship Specialty Start Date End Date Lauri Barbosa DNP [address] [place], [place] [id number] PCP - General Family Medicine 02/06/19 08/09/22 documented as of this encounter
--- OUTSIDE RECORDS SUMMARY | 2024-12-05 12:40 | XMS_ITS | Encounter Summary ---
Author Organization [facility] [place] [address] Care Team Providers Care Final Canoe Inspector Name Role Phone Ken Greer MD Primary Care Provider [phone] Reason for Referral * Consultation (Urgent) - Authorized Specialty Diagnoses / Procedures Referred By Nader pena Referred To Contact Wound Care Diagnoses Ulcer of foot, unspecified laterality, unspecified ulcer stage DIABETIC FOOT ULCER Glynn Esteves MD [address] [place] [address] [place] [address] [facility] [place] [address] Referral ID Status Reason Start Date Expiration Date Visits Requested Visits Authorized [id number] Authorized Consult, Test & Treat PCP Updated and/or Approved 02/18/2024 02/17/2025 6 6 Encounter Details Date Type Department Care Team (Late st Contact Info) Description 02/18/2024 Transcribe Orders eDH Incoming Referrals [phone] Glynn Esteves MD [address] [place] [address] [address] [id number] Ulcer of foot, unspecified laterality, unspecified ulcer stage Social History Tobacco Use Types Packs/Day Years Used Date Smoking Tobacco: Light Smoker Cigarettes Last attempted t o quit: 12/26/2018 Smokeless Tobacco: Never Comments:smoking a few a day Alcohol Use Standard Drinks/Week Comments No 0 (1 standard drink = 0.6 oz pur e alcohol) DH IPV Inpatient Questions Answer Date Recorded [...] this encounter Visit Diagnoses Diagnosis Ulcer of foot, unspecified laterality, unspecified ulcer stage documented in this encounter Care Teams Final Canoe Inspector Relationship Specialty Start Date End Date Ken Greer MD PCP - General Family Medicine 12/30/23 05/15/24 documented as of this encounter
--- OUTSIDE RECORDS SUMMARY | 2024-12-05 12:40 | XMS_ITS | Encounter Summary ---
Author Organization Formerly [facility] [place] [address] Care Team Providers Care Special Education Teacher Name Role Phone Ken Greer MD Primary Care Provider [phone] Reason for Visit * Reason Comments Wound Check * Auth/Cert (Routine) Specialty Diagnoses / Procedures Referred By Nader gardiner Referred To Contact Diagnoses Wound infection Non-healing open wound of heel Ari Renae MD [facility] [place] [address] [facility] Referral ID Status Reason Start Date Expiration Date Visits Re quested Visits Authorized [id number] 1 1 Encounter Details Date Type Department Care Team (Late st Contact Info) Description 02/18/2024 6:30 PM EDT - 02/18/2024 8:23 PM EDT Surgery [place] [address] Ari Renae MD [facility] [place] [address] @AMPUTATION, BELOW-KNEE, OPEN, GUILLOTINE (WRVU 9.79) Social History Tobacco Use Types Packs/Day Years Used Date Smoking Tobacco: Light Smoker Cigarettes Last attempted t o quit: 12/26/2018 Smokeless Tobacco: Never Comments:smoking a few a day Alcohol Use Standard Drinks/Week Comments No 0 (1 standard drink = 0.6 oz pur e alcohol) COUNTS INCLUDE 234 BEDS AT THE [facility] Inpatient Questions Answer Date Recorded Does [...] Sign Reading Time Taken Comments Blood Pressure 154/62 02/18/2024 8:15 PM EDT Pulse 69 02/18/2024 8:15 PM EDT Temperature 37.5 ??C (99.5 ??F) 02/18/2024 8:15 PM ED T Respiratory Rate 16 02/18/2024 8:15 PM EDT Oxygen Saturation 95% 02/18/2024 8:15 PM EDT Inhaled Oxygen Concentration - - [...] Attending Physician: Ari Renae MD Discharging Provider: Rbuy Mcgill APRN Discharging Service: Vascular Surgery Operations/Major [...] 2 months, and he follows with a channel marketing specialist for these. He presented to [facility] yesterday after noting fevers and after his VNA identified worsening redness of the left foot. The patient denies any increased pain, numbness, or tingling. He states that at baseline he does not ambulate much. The patient has not had any vascular interventions in the past, although he has been evaluated by avascular surgeon at [facility] who determined that he does not have [...] 194 02/25/2024 Discharge Condition: stable Discharge to: [facility] ([address] [address] Future Appointments and Orders Future Appointments and Orders Future Appointments Provider Department Dept Phone 03/09/2024 3:00 PM Apurva Crowley APRN Wound Care at [facility] Arrive at: Maintenance Scheduler Area 4M [phone] Anticoagulation & Antiplatelet: Anticoagulation: Agent: Heparin 500u [...] sugar diagnostic strips Strip Commonly known as: Placeable, LLCTouch Ultra Test flash glucose sensor Kit Commonly known as: FreeStyle Derick 14 Day Sensor FreeStyle Derick 14 Day Masury Misc Generic drug: flash glucose scanning reader [...] For any problems or questions please call [phone] For issues on weeknights after 5pm and weekends please call [phone] and ask for the Vascular Fellow senior recruitment consultant. documented in this encounter Discharge Instructions [...] For any problems or questions please call [phone] For issues on weeknights after 5pm and weekends please call [phone] and ask for the Vascular Fellow senior recruitment consultant. * Attachments The following attachments cannot be sent through Care Everywhere. * Blood Transfusions: General Info (Colombian) documented in this encounter Medications at Time [...] 02/25/2024 11:56 AM EDT Office of Care Management/Performing Arts Road Manager Name: Gerson Bruner Presenting Issue: Outpatient Dialysis Update RS Notified [facility] (Spoke w/VIDYA Flores) unit that patient is scheduled for discharge soon. The dialysis unit is ready for the patient on 02/28/2024 @ 0615am The patient will have a schedule of MWF at 0630 Plan: Discharge Summary and last acute dialysis records will be faxed to the cytogenetic technician upon discharge. This office will be available to the patient, Plastic Surgery Technician-RN and Cover Seamer for further assistance. Dialysis Unit Address: [facility] [address] [place] [address] Natalie Marvin [address] Manager * Natalie Marvin - 02/25/2024 11:44 AM EDT Office of Care Management/Performing Arts Road Manager Patient Name: Gerson Bruner : 1965 Patient has been offered a SNF bed at [facility] Patient will be transported via private vehicle Ambulance will need: Medicare ambulance form completed and signed (MD or Plastic Surgery Technician RN/TRACTOR TRAILER TECHNICIAN) Copy of patient demographics [place] Out of Hospital DNR/DNI order, if active No MD to MD report necessary Please call Nursing Report to , ask for cytogenetic technician. Info to accompany patient: Copies of Medication Administration Records and IV sheets for past 10 days. Plan: Performing Arts Road Manager will be available to the patient and Plastic Surgery Technician-RN and/or Social Workerfor further assistance. Patient will be discharged to: [address] [address] [facility] Herman Machado Specialist * Renu Gil, GROUNDSMAN - 02/25/2024 10:27 AM EDT Follow Up [...] ratio for each meal Renu Gil APRN [facility] Endocrinology Diabetes Management Pager [phone] 35 minute visit was spent evaluating diabetes and treatment plan, reviewing all glucose and insulindata as well as relevant laboratory results , and coordination of care on the inpatient unit including nursing and primary team. * Mary Kenny MD - 02/24/2024 1:23 PM EDT Images from the original note were not included. [facility] NEPHROLOGY/HYPERTENSION DIALYSIS PROGRESS NOTE PATIENT: Gerson [...] BID heparin (porcine) 5,000 Units Subcutaneous Q8H [facility] sevelamer carbonate 1,600 mg Oral TID dilTIAZem [...] 98 143 Recent Labs 02/24/24 0607 02/23/24 0411 02/22/24 0453 CALCIUM 9.2 8.5 8.4* MAGNESIUM 0.84 0.83 0.81 PHOS 4.8* 5.5* 4.4 ABG (Arterial Blood Gas) Recent Labs 02/18/24 1516 LACTATEVEN 1.0 VBG (Venous Blood Gas) Recent Labs 02/18/24 1516 PHVEN 7.39 [id number] 48 PO2VEN 22* MID5ONH 28.3 LACTATEVEN 1.0 Mixed Venous Sat No results for input(s): W7LYSK8 in the last 168 hours. LFT's: Recent [...] Component Value Units Date/Time MRSA PCR Screen ([facility]/CGP/APD/NLH) [[id number]] Collected: 02/18/24 230 Lab Status: Final result Specimen: Nasopharyngeal Swab Updated: 02/19/24 1723 MRSA Result Negative MRSA Interp -- Methicillin-resistant Staphylococcus aureus (MRSA) is NOT DETECTED The MRSA target DNA sequences (mec and SCC) were not detected within the acceptable ranges using the Xpert MRSA NxG on the GeneXpert Dx System (TRAKLOK). This suggests the absence of MRSA in the patient specimen submitted for testing. This test is cleared by the U.S. Food and Drug Administration for clinical use and its performance characteristics have been verified by the [facility] at [facility]. This result does not rule out the presence of any other organisms. Rare false negative results may occur if MRSA is present at low concentrations with much higher concentrations of other organisms including MRSE or S. aureus with an empty SCC cassette. Comment: [VERIFIED DATE]02.19.24 Verified By:Shaina Goff (Electronic Signature) Blood culture [[id number]] Collected: 02/18/24 1500 Lab Status: Preliminary result Specimen: Blood Updated: 02/19/24 2302 Blood Culture No growth at 1 day. Blood culture [[id number]] Collected: 02/18/24 1415 Lab Status: Preliminary result [...] with apodiatrist for these. He presented to [facility] yesterday after noting fevers and after [...] sitting upright in bed with extra timeto pullboat engineer bandages. Pt participated in a toileting routine [...] insight into deficits Slight emotional liability, inconsistent religion department chair, possibly affected by hearing deficits. Vision: WFL [...] 2-3 times/wk Total Minutes, Occupational Therapy: 59 ([phone] 2xSelf Care, 2xFunc Act) Pager: [phone] Reggie Lpoez OT 02/24/2024 Occupational Therapy Rehabilitation Department * Zandra [...] 2 months, and he follows with a channel marketing specialist for these. He presented to [facility] yesterday after noting fevers and after his VNA identified worsening redness of the left foot. The patient denies any increased pain, numbness, or tingling. He states that at baseline he does not ambulate much. The patient has not had any vascular interventions in the past, although he has been evaluated by avascular surgeon at [facility] who determined that he does not have [...] 15.37) performed by Ari Renae MD at [facility] MAIN OR PRO AMPUTATION LOW LEG, CIRCULAR Left 02/18/2024 @AMPUTATION, BELOW-KNEE, OPEN, GUILLOTINE (WRVU 9.79) performed by Ari Renae MD at [facility] MAIN OR PRO ANASTOMOSIS, AV, ANY SITE Left 09/05/2018 AV FISTULA CREATION, DIRECT HEMODIALYSIS, ANY SITE, EG GABRIEL FISTULA UPPER EXTREMITY (WRVU 11.9) performed by Scout Reese MD at [facility] MAIN OR PRO COLONOSCOPY, REMV LESN, SNARE N/A 09/26/2019 COLONOSCOPY, POLYPECTOMY, REMOVAL LESION BY SNARE (WRVU 4.67) performed by Kaye Gibbs MD at [facility] ENDOSCOPY Active Non-Hospital Problems Diagnosis TIA (transient [...] tam PT, Doctor of Physical Therapy Pager: [phone] Physical Therapy Inpatient Rehabilitation Department * Felton [...] 2 months, and he follows with a channel marketing specialist for these. He presented to [facility] yesterday after noting fevers and after his VNA identified worsening redness of the left foot. The patient denies any increased pain, numbness, or tingling. He states that at baseline he does not ambulate much. The patient has not had any vascular interventions in the past, although he has been evaluated by avascular surgeon at [facility] who determined that he does not have [...] Oral BID acetaminophen 975 mg Oral Q6H [facility] carvediloL 12.5 mg Oral BID vitamin B [...] level 4 Felton Márquez MD 02/24/2024 Pager: [phone] Associated attestation - Ari Renae MD - [...] from the original note were not included. [facility] NEPHROLOGY/HYPERTENSION DIALYSIS PROGRESS NOTE PATIENT: Gerson [...] GLUCOSE 98 143 96 Recent Labs 02/23/2441002/22/24 04502/21/24 0602 CALCIUM 8.5 8.4* 9.2 MAGNESIUM 0.83 0.81 0.93 PHOS 5.5* 4.4 5.2* ABG (Arterial Blood Gas) Recent Labs 02/18/24 1516 LACTATEVEN 1.0 VBG (Venous Blood Gas) Recent Labs 02/18/24 1516 PHVEN 7.39 ALH0LTE 48 PO2VEN 22* CMA7GLH 28.3 LACTATEVEN 1.0 Mixed Venous Sat No results for input(s): V7PMCB0 in the last 168 hours. LFT's: Recent Labs 02/22/24 045 ALBUMIN 2.8* Prot/Cre Ratio Date Value Ref [...] Component Value Units Date/Time MRSA PCR Screen ([facility]/CGP/APD/NLH) [[id number]] Collected: 02/18/24 230 Lab Status: Final result Specimen: Nasopharyngeal Swab Updated: 02/19/24 1723 MRSA Result Negative MRSA Interp -- Methicillin-resistant Staphylococcus aureus (MRSA) is NOT DETECTED The MRSA target DNA sequences (mec and SCC) were not detected within the acceptable ranges using the Xpert MRSA NxG on the GeneXpert Dx System (TRAKLOK). This suggests the absence of MRSA in the patient specimen submitted for testing. This test is cleared by the U.S. Food and Drug Administration for clinical use and its performance characteristics have been verified by the [facility] at [facility]. This result does not rule out the presence of any other organisms. Rare false negative results may occur if MRSA is present at low concentrations with much higher concentrations of other organisms including MRSE or S. aureus with an empty SCC cassette. Comment: [VERIFIED DATE]02.19.24 Verified By:Shania Goff (Electronic Signature) Blood culture [[id number]] Collected: 02/18/24 1500 Lab Status: Preliminary result Specimen: Blood Updated: 02/19/24 2302 Blood Culture No growth at 1 day. Blood culture [[id number]] Collected: 02/18/24 1415 Lab Status: Preliminary result [...] patient. Patrica Greene MD Regional Team pager [phone] * Reggie Lopez OT - 02/23/2024 1:35 PM EDT Occupational Therapy Note Document Type: contact Total Minutes, Occupational Therapy: 0 Reason: 02/23/24 7895 Evaluation & Treatment Document Type contact Total Minutes, Occupational Therapy 0 Comment, Session Not Performed Pt not seen per RN report significant pain and fatigue post morning dialysis. PT also attempting evaluation this afternoon. OT will follow up at later date to continue with treatment plan as medically necessary. Vital Signs Heart Rate from SpO2 76 bpm SpO2 94 % Pager: [phone] Reggie Lopez OT 02/23/2024 Occupational Therapy Rehabilitation [...] Tucker PT, Doctor of Physical Therapy Pager: [phone] Physical Therapy Inpatient Rehabilitation Department * Jean [...] 2 months, and he follows with a channel marketing specialist for these. He presented to [facility] yesterday after noting fevers and after his VNA identified worsening redness of the left foot. The patient denies any increased pain, numbness, or tingling. He states that at baseline he does not ambulate much. The patient has not had any vascular interventions in the past, although he has been evaluated by avascular surgeon at [facility] who determined that he does not have [...] no evidence of hematoma Labs: Recent Labs 02/23/2441002/22/243 02/21/24 1915 02/21/24 0602 WBC 16.1* 16.4* -- 13.0* HGB 6.9* 8.1* 8.3* 8.0* HCT 21.6* 25.3* 27.4* 25.8* PLATELET 388* 434* -- 510* Recent Labs 02/23/2441002/22/2445202/21/24 0602 NA 137 137 139 K 4.9 [...] Statin - Renal diet 2 GM NA; CHO counting level 4 Jean Henning MD 02/23/2024 Pager: [phone] * Renu Gil, GROUNDSMAN - 02/23/2024 6:44 AM EDT Follow Up [...] 1148 02/22/24 0809 02/22/24 0335 02/21/24 2357 02/21/24 2015 02/21/24 1808 POCGLU 100 86 79 76 174 [...] ratio for each meal Renu Gil APRN [facility] Endocrinology Diabetes Management Pager [phone] 35 minute visit was spent evaluating diabetes and treatment plan, reviewing all glucose and insulindata as well as relevant laboratory results , and coordination of care on the inpatient unit including nursing and primary team. * Mary Kenny MD - 02/22/2024 3:51 PM EDT Images from the original note were not included. [facility] NEPHROLOGY/HYPERTENSION DIALYSIS PROGRESS NOTE PATIENT: Gerson [...] slight asterixis. STUDIES: LABS: CBC: Recent Labs 02/22/2445202/21/24191402/21/24 0602 02/20/24 0521 WBC 16.4* -- 13.0* 11.4* HGB 8.1* 8.3* 8.0* 7.6* PLATELET 434* -- 510* 448* Chemistry: Recent Labs 02/22/2445202/21/24 0602 02/20/24 0521 NA 137 139 139 K 4.3 5.1* 4.2 CL 99 101 101 CO2 28 26 26 BUN 25* 46* 37* CREATININE 5.47* 8.39* 6.78* GLUCOSE 143 96 94 Recent Labs 02/22/24 04502/21/24 0602 02/20/24 0521 CALCIUM 8.4* 9.2 9.0 MAGNESIUM 0.81 0.93 -- PHOS 4.4 5.2* -- ABG (Arterial Blood Gas) Recent Labs 02/18/24 1516 LACTATEVEN 1.0 VBG (Venous Blood Gas) Recent Labs 02/18/24 1516 PHVEN 7.39 HLU6TBK 48 PO2VEN 22* IHH0RNF 28.3 LACTATEVEN 1.0 Mixed Venous Sat No results for input(s): O2MUPV5 in the last 168 hours. LFT's: Recent [...] Component Value Units Date/Time MRSA PCR Screen ([facility]/CGP/APD/NLH) [[id number]] Collected: 02/18/24 230 Lab Status: Final result Specimen: Nasopharyngeal Swab Updated: 02/19/24 1723 MRSA Result Negative MRSA Interp -- Methicillin-resistant Staphylococcus aureus (MRSA) is NOT DETECTED The MRSA target DNA sequences (mec and SCC) were not detected within the acceptable ranges using the Xpert MRSA NxG on the GeneXpert Dx System (TRAKLOK). This suggests the absence of MRSA in the patient specimen submitted for testing. This test is cleared by the U.S. Food and Drug Administration for clinical use and its performance characteristics have been verified by the [facility] at [facility]. This result does not rule out the presence of any other organisms. Rare false negative results may occur if MRSA is present at low concentrations with much higher concentrations of other organisms including MRSE or S. aureus with an empty SCC cassette. Comment: [VERIFIED DATE]02.19.24 Verified By:Denver, Shaina M (Electronic Signature) Blood culture [[id number]] Collected: 02/18/24 1500 Lab Status: Preliminary result Specimen: Blood Updated: 02/19/24 2302 Blood Culture No growth at 1 day. Blood culture [[id number]] Collected: 02/18/24 1415 Lab Status: Preliminary result [...] 2 months, and he follows with a channel marketing specialist for these. He presented to [facility] yesterday after noting fevers and after his VNA identified worsening redness of the left foot. The patient denies any increased pain, numbness, or tingling. He states that at baseline he does not ambulate much. The patient has not had any vascular interventions in the past, although he has been evaluated by avascular surgeon at [facility] who determined that he does not have [...] Daily insulin lispro 0-9 Units Subcutaneous Q4H [facility] insulin lispro 0-15 Units Subcutaneous TID carvediloL [...] BID heparin (porcine) 5,000 Units Subcutaneous Q8H [facility] sevelamer carbonate 1,600 mg Oral TID dilTIAZem CD 120 mg Oral Daily Operations [...] GM NA Felton Márquez MD 02/22/2024 Pager: [phone] * Hector Diaz MD - 02/22/2024 7:38 [...] you, please page the Regional Anesthesia Team ([phone]) with any questions or concerns. Thank you for the opportunity to have participated in the care of this patient. Update 12noon: Catheter bolus given of 10ml 2% lidocaine with spread visualized around CP/TN with ultrasound, redressed and infusion continued. Hector Diaz MD 02/22/2024 7:30am Regional Anesthesia Fellow Regional Anesthesia team pager [phone] * Elle Finn RN - 02/21/2024 9:59 [...] completed today due to patient going to [facility] and then to OR. * Karli Fletcher RN - 02/21/2024 6:33 PM EDT 1830) Assuming care of patient. Patient ripping off BP cuff and trying to remove IV's. Telling me he will punch you in the face?. Anesthesia paged for help managing patient and Precedex administered. Jessi DASILVA 191) Lab calls and lab sample (H/H) clotted. [...] from the original note were not included. [facility] NEPHROLOGY/HYPERTENSION DIALYSIS PROGRESS NOTE PATIENT: Gerson [...] BID heparin (porcine) 5,000 Units Subcutaneous Q8H [facility] acetaminophen 650 mg Oral Q6H [facility] sevelamer [...] asterixis. STUDIES: LABS: CBC: Recent Labs 02/21/24 0602/20/2452002/19/24 05 WBC 13.0* 11.4* 12.9* HGB 8.0* 7.6* 8.0* PLATELET 510* 448* 371* Chemistry: Recent Labs 02/21/24 0602/20/24 0521 02/19/24 0528 NA 139 139 137 K 5.1* 4.2 3.8 CL 101 101 100 CO2 26 26 23 BUN 46* 37* 27* CREATININE 8.39* 6.78* 4.81* GLUCOSE 96 94 164 Recent Labs 02/21/2402 02/20/24 0502/19/24 0528 CALCIUM 9.2 9.0 8.8 MAGNESIUM 0.93 -- -- PHOS 5.2* -- -- ABG (Arterial Blood Gas) Recent Labs 02/18/24 1516 LACTATEVEN 1.0 VBG (Venous Blood Gas) Recent Labs 02/18/24 1516 PHVEN 7.39 WEY1HWO 48 PO2VEN 22* TKE6HFX 28.3 LACTATEVEN 1.0 Mixed Venous Sat No results for input(s): W4VZUJ6 in the last 168 hours. LFT's: No [...] Component Value Units Date/Time MRSA PCR Screen ([facility]/CGP/APD/NLH) [[id number]] Collected: 02/18/24 230 Lab Status: Final result Specimen: Nasopharyngeal Swab Updated: 02/19/24 172 MRSA Result Negative MRSA Interp -- Methicillin-resistant Staphylococcus aureus (MRSA) is NOT DETECTED The MRSA target DNA sequences (mec and SCC) were not detected within the acceptable ranges using the Xpert MRSA NxG on the GeneXpert Dx System (TRAKLOK). This suggests the absence of MRSA in the patient specimen submitted for testing. This test is cleared by the U.S. Food and Drug Administration for clinical use and its performance characteristics have been verified by the [facility] at [facility]. This result does not rule out the presence of any other organisms. Rare false negative results may occur if MRSA is present at low concentrations with much higher concentrations of other organisms including MRSE or S. aureus with an empty SCC cassette. Comment: [VERIFIED DATE]02.19.24 Verified By:Shaina Goff (Electronic Signature) Blood culture [[id number]] Collected: 02/18/24 1500 Lab Status: Preliminary result Specimen: Blood Updated: 02/19/24 2302 Blood Culture No growth at 1 day. Blood culture [[id number]] Collected: 02/18/24 1415 Lab Status: Preliminary result [...] disease on HD (last HD 02/18/2024), TIA (2019, thought to be secondary to small vessel disease), and diabeteswho presents with bilateral heel ulcers, left worse than right. The patient estimates that these have been here for approximately 1 to 2 months, and he follows with a channel marketing specialist for these. He presented to [facility] yesterday after noting fevers and after his VNA identified worsening redness of the left foot. The patient denies any increased pain, numbness, or tingling. He states that at baseline he does not ambulate much. The patient has not had any vascular interventions in the past, although he has been evaluated by avascular surgeon at [facility] who determined that he does not have [...] TID dilTIAZem CD 120 mg Oral Daily Operations [...] Recent Labs 02/21/24 0602 02/20/24 0521 02/19/24 0502/18/24 1415 WBC 13.0* 11.4* 12.9* 13.8* HGB 8.0* 7.6* 8.0* 7.2* HCT 25.8* 24.6* 25.8* 22.1* PLATELET 510* 448* 371* 440* Recent Labs 02/21/24 0602 02/20/24 0521 02/19/24 0528 02/18/24 1415 NA 139 139 137 135 K 5.1* 4.2 3.8 3.7 CL 101 101 100 97* CO2 26 23 27 BUN 46* 37* 27* [...] control diet Ruby Mcgill APRN 02/21/2024 Pager: [phone] * Radha Biswas MD - 02/20/2024 2:25 PM EDT Images from the original note were not included. [facility] NEPHROLOGY/HYPERTENSION DIALYSIS PROGRESS NOTE PATIENT: Gerson [...] BID insulin lispro 2-12 Units Subcutaneous Q4H [facility] insulin glargine (Lantus;Semglee) (100 unit/mL) subcutaneous injection 55 Units Subcutaneous Daily sodium chloride 0.9 % (flush) 5 mL Intravenous BID heparin (porcine) 5,000 Units Subcutaneous Q8H [facility] acetaminophen 650 mg Oral Q6H [facility] sevelamer [...] asterixis. STUDIES: LABS: CBC: Recent Labs 02/20/24 0521 02/19/24 0528 02/18/24 1415 WBC 11.4* 12.9* 13.8* HGB 7.6* 8.0* 7.2* PLATELET 448* 371* 440* Chemistry: Recent Labs 02/20/24 0521 02/19/24 0528 02/18/24 1415 NA 139 137 135 K 4.2 3.8 3.7 CL 101 100 97* CO2 26 23 27 BUN 37* 27* 18 CREATININE 6.78* 4.81* 3.48* GLUCOSE 94 164 211* Recent Labs 02/20/24 0521 02/19/24 0528 02/18/24 1415 CALCIUM 9.0 8.8 8.6 ABG (Arterial Blood Gas) Recent Labs 02/18/24 1516 LACTATEVEN 1.0 VBG (Venous Blood Gas) Recent Labs 02/18/24 1516 PHVEN 7.39 [id number] 48 PO2VEN 22* DRX8LEZ 28.3 LACTATEVEN 1.0 Mixed Venous Sat No results for input(s): W9EUQL4 in the last 168 hours. LFT's: No [...] Component Value Units Date/Time MRSA PCR Screen ([facility]/CGP/APD/NLH) [[id number]] Collected: 02/18/24 2302 Lab Status: Final result Specimen: Nasopharyngeal Swab Updated: 02/19/24 1723 MRSA Result Negative MRSA Interp -- Methicillin-resistant Staphylococcus aureus (MRSA) is NOT DETECTED The MRSA target DNA sequences (mec and SCC) were not detected within the acceptable ranges using the Xpert MRSA NxG on the GeneXpert Dx System (TRAKLOK). This suggests the absence of MRSA in the patient specimen submitted for testing. This test is cleared by the U.S. Food and Drug Administration for clinical use and its performance characteristics have been verified by the Clinical Genomics and [facility] Laboratory at [facility]. This result does not rule out the presence of any other organisms. Rare false negative results may occur if MRSA is present at low concentrations with much higher concentrations of other organisms including MRSE or S. aureus with an empty SCC cassette. Comment: [VERIFIED DATE]02.19.24 Verified By:Shaina Goff (Electronic Signature) Blood culture [[id number]] Collected: 02/18/24 1500 Lab Status: Preliminary result Specimen: Blood Updated: 02/19/24 2302 Blood Culture No growth at 1 day. Blood culture [[id number]] Collected: 02/18/24 1415 Lab Status: Preliminary result [...] M.H.A., M.A. PGY-V Nephrology-Hypertension Fellow Page # [phone] [facility] [address] [facility] [address] 2nd floor, Maintenance Scheduler [address] [place] [address] Associated attestation - Fareed Bryant MD - [...] 2 months, and he follows with a channel marketing specialist for these. He presented to [facility] yesterday after noting fevers and after his VNA identified worsening redness of the left foot. The patient denies any increased pain, numbness, or tingling. He states that at baseline he does not ambulate much. The patient has not had any vascular interventions in the past, although he has been evaluated by avascular surgeon at [facility] who determined that he does not have [...] control diet Ruby Mcgill APRN 02/20/2024 Pager: [phone] * Ruby Mcgill APRN - 02/19/2024 1:42 PM EDT Vascular Surgery Progress Note Gerson Bruner is a 58 y.o. male with past medical history significant for end- stage renal disease on HD (last HD 02/18/2024), TIA (2019, thought to be secondary to small vessel disease), and diabeteswho presents with bilateral heel ulcers, left worse than right. The patient estimates that these have been here for approximately 1 to 2 months, and he follows with a channel marketing specialist for these. He presented to [facility] yesterday after noting fevers and after his VNA identified worsening redness of the left foot. The patient denies any increased pain, numbness, or tingling. He states that at baseline he does not ambulate much. The patient has not had any vascular interventions in the past, although he has been evaluated by avascular surgeon at [facility] who determined that he does not have [...] control diet Ruby Mcgill APRN 02/19/2024 Pager: [phone] * Ke Carter RP - 02/18/2024 10:51 PM EDT Clinical Pharmacist Note - VancFD Gerson Bruner [id number] 1965 Gerson Bruner is a 58 y.o. [...] questions you may have. Alternately, during off-hours (9-) you may call [phone] to contact a pharmacist. Ke Carter RPH [...] Hansen RN - 02/18/2024 7:33 PM EDT 192: Patient arrived to NM13/NM13-A from OR. Vital signs stable. Alarms audible [...] 2 months, and he follows with a channel marketing specialist for these. He presented to [facility] yesterday after noting fevers and after his VNA identified worsening redness of the left foot. The patient denies any increased pain, numbness, or tingling. He states that at baseline he does not ambulate much. The patient has not had any vascular interventions in the past, although he has been evaluated by avascular surgeon at [facility] who determined that he does not have [...] 11.9) performed by Scout Reese MD at [facility] MAIN OR PRO COLONOSCOPY, REMV LESN, SNARE N/A 09/26/2019 COLONOSCOPY, POLYPECTOMY, REMOVAL LESION BY SNARE (WRVU 4.67) performed by Kaye Gibbs MD at [facility] ENDOSCOPY Functional Status: Lives at home, primarily [...] 180 tablet 3 blood sugar diagnostic strips (CategoricalTOUCH ULTRA TEST) Strip 1 each by Other route 2 times daily (before meals). Dx code 250.02 uses insulin 100 each 11 insulin detemir U-100 (LEVEMIR) Insulin Pen Inject 55 Units subcutaneously nightly. 10 mL 12 lancets Misc Inject 1 each subcutaneously 2 times daily (before meals). Dx code 250.02 uses [id number] each 11 hydrALAZINE (APRESOLINE) 25 mg Tablet [...] Take 1 tablet by mouth daily. Insulin Stanley, Disposable, 31 X 5/16 Needle Inject 1 [...] Artery 190 Dorsalis Pedis (Ankle) Artery >240 [place]-Biphasic Posterior Tibial (Ankle) Artery >240 Monophasic Great [...] to him and he was recently at [facility] and [facility] and was told that he likely needs an amputation of his left foot. He reports that he had a CT scan at [facility] yesterday and was told that he has osteomyelitis in the heel. Patient left that hospital as hewanted to get his care through [facility] and drove here today. Does report [...] who have questions please contact the health critical care technician that requested your imaging first. Electronically signed by: Romeo Saunders MD, [facility] ([phone]), at 02/18/2024 4:51 PM Request For 2nd Read CT Lower Extremity (Results Pending) ED Course as of 02/18/24 1737 WedFeb 18, 2024 1728 Glucose Lvl(!): 211 [...] gotten much worse. He was recently at [facility] for thewound to his left foot and was recommended that he come to [facility] for potential amputation as he has significant [...] discussed with the patient. Thee Magaña PA 02/18/24 1906 * Maria A Mallory APRN - 02/18/2024 1:58 PM EDT In-Triage Brief Provider Note: Brief HPI: 58-year-old male with significant complex past medical history presents after being seen at [facility] yesterday and was advised to come directly to [facility] due to concern of osteomyelitis and possible requiring amputation secondary to severe PVD however was unable to get to [facility] until today. Scanned note from patient's [facility] visit yesterday indicates that patient was also recently hospitalized at [facility]. CT images from an [facility] have been pushed to [facility] Patient is also a MWF dialysis patient. [...] Notes * Consult Note - Thu Holguin [facility] - 02/25/2024 12:50 PM EDT BIT (Behavioral [...] require medical follow up. Thu Holguin MA, [facility] Mental Chemo Services - BIT (Behavioral Intervention Team) Dept. of Psychiatry - Inpatient Psych. Services BIT Pager: [phone] * Consult Note - Candi Nowak RN - 02/25/2024 12:44 PM EDT Images from the original note were not included. Wound Care Nurse Note Situation: Asked to see Gerson Bruner by Jean Henning MD for R [...] chat or the wound care team at [phone] or pager [phone] with skin and wound care concerns or questions. * Care Management Discharge - Megan Green RN - 02/25/2024 11:20 AM EDT CARE MANAGEMENT FINAL DISCHARGE NOTE Chart reviewed, care reviewed with primary team and at interdisciplinary rounds. Patient is medically ready for discharge to [facility]. Needs for Transition of Care: Plan for discharge is: [facility] Facility / [facility] Outpatient Agency/Support Group Needs: None Home Health Services: Registered Nurse, Physical Therapy, Cover Seamer, Occupational Therapy Agency Referrals & Follow-up Care: Contact information for follow-up [facility], Soham Gary [address] [place] [address] [facility] UN[facility] [address] [facility] [phone] Transportation: is comfortable bringing the patient to [facility] and to and from dialysis MWF Wheelchair [...] feels comfortable with taking the patient to [facility] and to dialysis. PATRICIA Leigh,poultry hatchery laborer Team Case Management [phone] Pager #[phone] * Plan of Care - Zita Michelle [...] Impairment (Lower Extremity Amputation) Goal: Optimal Mobility Bowie and Safety Outcome: Ongoing (Interventions Implemented as [...] SUMMARY: A&Ox4, VSS on RA. Patient is [place]. Patient reports severe intermittent sharp, shooting pain [...] Impairment (Lower Extremity Amputation) Goal: Optimal Mobility Bowie and Safety Outcome: Ongoing (Interventions Implemented as [...] to: discuss discharge planning needs. provide the [facility], Office of Care Management letter from the [employer] pertaining to rehab referrals. provide a letter describing our affiliations within the [facility] and educate about their right to choose where referrals are sent. provide the CMS Star Quality Rating handout. review the different levels of rehab including SNF, swing, and acute. provide a list of facilities within their preferred geographic area. request that they provide at least three choices for referral. They have requested referrals to: [facility] ([facility]) [address] [place] [address] Note routed to a Performing Arts Road Manager who will communicate referrals to facilities and [...] the shift (around 100F) with scheduled MD Sherwin ventura aware. Pt reports that he needs to have a BM and that he needs to get to the toilet. Sales Representative Health Insurance educated patient on the increased fall risk, NWB of the LLE and needing a offloading boot for RLE. Pt was frustrated and did not understand [facility] Pt was eventually agreeable to stand-pivot [...] Impairment (Lower Extremity Amputation) Goal: Optimal Mobility Bowie and Safety Outcome: Ongoing (Interventions Implemented as [...] SUMMARY: A&Ox4, VSS on RA. Patient is [place]. Patient reports severe intermittent sharp, shooting pain in left residual limb. Ambit pump in place until ~15:00, removed at bedside by . Ambit pump site ELDA. Scheduled tylenol and PRN pain medications given, [...] fall risk. Will pass this along to commercial loan officer RN. LLE dressing C/D/I. RLE heel wound cleansed with normal saline and iodine, and wrapped with kerlix, per Dr. Beach's verbal orders. IV abx given per orders. [...] Impairment (Lower Extremity Amputation) Goal: Optimal Mobility Bowie and Safety Outcome: Ongoing (Interventions Implemented as [...] meet inpatient level of care related to: Jeferson WEBBA Decision Maker: Self Functional status prior to [...] Home w/ Services Hemodialysis Needs: Resumption Location: [facility] HD Chair Confirmed: 1 Home Health Services: Registered Nurse, Physical Therapy, Cover Seamer, Occupational Therapy Agency Referrals: [facility], [place] [address] [place] [address] [facility] [address] [place] [address] P: [phone] F: [phone] Transportation: family or friend will provide Barriers to discharge: Discharge planning Plan going forward: Patient not medically to discharge. Working on pain control. Will follow up after PT/OT eval for discharge disposition recommendations. Care Management will continue to follow and assist with discharge planning and coordination of careas indicated. Anticipated Date of Discharge: 02/29/2024 Romeo Webber steam drier tender Pgr: [phone] * Consult Note - Thu Holguin LCKerry - 02/23/2024 2:00 PM EDT BIT (Behavioral Intervention Team) [facility] saw this patient briefly today - his [...] with him this week. Thu Holguin MA, [facility] Mental Chemo Services - BIT (Behavioral Intervention Team) Dept. of Psychiatry - Inpatient Psych. Services BIT Pager: [phone] * Consult Note - Graeme Younger [facility] - 02/23/2024 11:01 AM EDT Clinical Pharmacist Note-Vanc Gerson Bruner [id number] 1965 Gerson Bruner is a 58 y.o. [...] have. Alternately, during off-hours you may call [phone] to contact a pharmacist. Graeme Younger RPH Pager [phone] * Plan of Care - Zita Michelle, RN - 02/23/2024 5:12 AM EDT OUTCOME [...] Impairment (Lower Extremity Amputation) Goal: Optimal Mobility Bowie and Safety Outcome: Ongoing (Interventions Implemented as [...] disease on HD (last HD 02/18/2024), TIA (2019, thought to be secondary to small vessel disease), and diabetes who presents with bilateral heel ulcers, left worse than right. The patient estimates that these have been here for approximately 1 to 2 months, and he follows with a channel marketing specialist for these. He presented to [facility] yesterday after noting fevers and after [...] 15.37) performed by Ari Renae MD at [facility] MAIN OR PRO AMPUTATION LOW LEG, CIRCULAR Left 02/18/2024 @AMPUTATION, BELOW-KNEE, OPEN, GUILLOTINE (WRVU 9.79) performed by Ari Renae MD at [facility] MAIN OR PRO ANASTOMOSIS, AV, ANY SITE Left 09/05/2018 AV FISTULA CREATION, DIRECT HEMODIALYSIS, ANY SITE, EG GABRIEL FISTULA UPPER EXTREMITY (WRVU 11.9) performed by Scout Reese MD at [facility] OR PRO COLONOSCOPY, RACHELV THAI, KADI N/A 09/26/2019 COLONOSCOPY, POLYPECTOMY, REMOVAL LESION BY SNARE (WRVU 4.67) performed by Kaye Gibbs MD at [facility] ENDOSCOPY Social History: Patient lives currently at [facility] which has a full flight of stairs. [...] Discharge planning. Total Minutes, Occupational Therapy: 39 ([phone]) 2017 OT Evaluation Code Rationale: Diagnosis & [...] and measurable assessment of functional outcome. Pager: [phone] Reggie Lopez OT 02/22/2024 Occupational Therapy Rehabilitation Department * Consult Note - Thu Holguin [facility] - 02/22/2024 10:50 AM EDT MIGDALIA (Behavioral Intervention Team) [facility] tried to see patient this morning though was busy with staff and company. Returned this afternoon and he was asleep. Will plan to see him tomorrow. Thu Holguin MA, [facility] Mental Chemo Services - MIGDALIA (Behavioral Intervention Team) Dept. of Psychiatry - Inpatient Psych. Services MIGDALIA Pager: [phone] * Plan of Care - Elle Finn [...] LLE pain around 0330 despite above intervention ~ was notified. Has not urinated this shift, bladder scanned for 135ml around 2029 and 146ml around midnight ~MD aware. LLE [...] Impairment (Lower Extremity Amputation) Goal: Optimal Mobility Bowie and Safety Outcome: Ongoing (Interventions Implemented as [...] Renae MD - 02/21/2024 4:38 PM EDT [facility] Operative Note Patient Name: Gerson Bruner : [id number] MR#: [id number] Case Date: 02/21/2024 Surgeon: Surgeon(s) and Role: [...] veins was controlled by oversewing in a cbngjc-zv-cisbi fashion with 3-0 silk.The tibia was circumferentially [...] veins was controlled by oversewing in a kwgimu-nu-fftfx fashion with 3-0 silk. Redundant subcutaneous tissue on the posterior flap was removed with the amputationknife. Hemostasis was then achieved by use of oiestu-oa-rjphm stitches. We then used interrupted 2-0 Vicry [...] 02/22/2024 * Consult Note - Thu Holguin [facility] - 02/21/2024 12:00 PM EDT BIT (Behavioral Intervention Team) Patient was out of his room at dialysis when this clinician went to see him. Spoke briefly to his . Made plan to see the patient likely tomorrow. Reviewed chart. Thu Holguin MA, [facility] Mental Chemo Services - MIGDALIA (Behavioral Intervention Team) Dept. of Psychiatry - Inpatient Psych. Services BIT Pager: [phone] * Consult Note - Renu Gil APRN [...] care for your patient Renu Gil APRN [facility] Endocrinology Diabetes Management Pager [phone] 70 minutes of this 80 minute visit [...] changed at bedside in AM by MD. Bedrest maintained. Prevalon boot to RLE. Resting [...] 2 months, and he follows with a channel marketing specialist for these. He presented to [facility] yesterday after noting fevers and after his VNA identified worsening redness of the left foot. The patient denies any increased pain, numbness, or tingling. He states that at baseline hedoes not ambulate much. The patient has not had any vascular interventions in the past, although he has been evaluated by avascular surgeon at [facility] who determined that he does not have [...] surrogate would be surrogate decision maker per [place] surrogate decision making law. (Only good for 180 days) Any patient receiving care in [place] must abide by [place] law. The hierarchy for surrogate decision making [...] (i) The agent with financial power of document review attorney or a conservator appointed in accordance [...] tub/shower, shower chair Home Address confirmed as: [address] [address] Social & Family Supports: All names listed below confirmed with patient as current and correct Extended Emergency Contact Information Primary Emergency Contact: Melissa Silva Address: [address] [place] [address] [facility] Mobile Relation: Spouse Current Care Provided [...] need it? Prescription Coverage: Yes Preferred Pharmacy: [id number] - [place], [place] - [address] [facility] [address] Hours: Not open 24 hours Status: Patient is a : No Primary Care Provider listed: Ken Greer MD [phone] Greer is leaving practice soon and they will be looking for another provider Patient/Caregiver Goals of Treatment: To go home Potential Needs for Transition of Care: home health care Agency [facility] [address] [place] [address] [facility] [address] [place] [address] P: [phone] F: [phone] Transportation: no concerns Transportation Anticipated: family or [...] the paperwork. This CM [facility] or PCP's office can help. Will also look into SW/LT and see if they can help Pt goes to [facility] for dialysis Plan: Pending VNA order for RN/PT/OT and SW A member of the Care Management team will continue to monitor progress, follow for continuity of care and assist with transition of care planning. Suzy Manrique RN Care Management [phone] * Plan of Care - Allie Tong [...] from the original note were not included. [facility] NEPHROLOGY/HYPERTENSION DIALYSIS CONSULT NOTE PATIENT: Gerson Bruner : 1965 Ken Greer MD REASON FOR CONSULTATION: ESRD Management HPI: 58-year-old male with past medical history significant for end-stage renal disease on HD (last HD 02/18/2024), TIA (2019, thought to be secondary to [...] there are several things to note: ESRD [place] Kidney Disease: Diabetic nephropathy per patient Dialysis Center and Schedule: Dialyzes in [facility]. Dialyzes MWF. Last HD on Saturday 02/17. Has been a dialysis patient for 3 years. Previously used to dialyze in [facility] Fondant Machine Operator: Patient unsure who primary jive developer is Access: LUE AVF placed about 3 years ago. Patient [...] Gas) Recent Labs 02/18/24 1516 PHVEN 7.39 URT5XRF 48 PO2VEN 22* XEK5VCS 28.3 LACTATEVEN 1.0 Mixed Venous Sat No results for input(s): Q1FLHB8 in the last 168 hours. LFT's: No [...] M.H.A., M.A. PGY-V Nephrology-Hypertension Fellow Page # [phone] [facility] [address] 2nd floor, Maintenance Scheduler [address] [place] [id number] Associated attestation - Fareed Bryant MD - [...] eventually presented to the ED here at [facility], with bilateral heel ulcers and gangrene to the left foot. 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 PMH significant for Type II DM, TIA, HLD, CKD, lumbar disk rupture, proteinuria, anemia, leg cramps, smoker, hearing loss, LE arterial occlusive disease, and primary wheelchair level of mobility. He arrived from PACU to WD approximately 2100 on 02/17, s/p LLE BKA. [...] use flagged. Pt regularly goes to dialysis -W- near his home in [place]. Fistula present in the LUE, he reports [...] undergone multiple prior debridements, most recently at [facility]. He is unsure who has previously debrided these wounds. He reports they do not heel and recently his LLE has become progressively painful. He has been having fevers. Per chart review his L heel infection began in 11/2023. He was admitted for cellulitis without concern for osteomyelitis at [facility] on 12/19/23. He was managed with debridements by wound care and podiatry and received IV abx. He has seen multiple vascular and orthopaedic teams as well as wound care andpodiatry teams. He was most recently debrided at [facility]. He prefers to get his care at [facility] and thus presents here as transfer after presenting to [facility] yesterday and being told he has [...] 11.9) performed by Scout Reese MD at [facility] MAIN OR PRO COLONOSCOPY, MANUELA ANDRE, AKDI N/A 09/26/2019 COLONOSCOPY, POLYPECTOMY, REMOVAL LESION BY SNARE (WRVU 4.67) performed by Kaye Gibbs MD at [facility] ENDOSCOPY Allergies Allergen Reactions Clindamycin Swelling. Gabapentin [...] daily (before meals). Dx code 250.02 uses [id number] each 11 hydrALAZINE (APRESOLINE) 25 mg Tablet [...] Take 1 tablet by mouth daily. Insulin Stanley, Disposable, 31 X 5/16 Needle Inject 1 [...] sign off at this time. Please page [phone] with questions or concerns. Dany Gambino MD Orthopaedic Surgery, [phone] * Op Note - Nicolas Melgar MD - 02/18/2024 6:56 PM EDT [facility] Operative Note Patient Name: Gerson Bruner : [id number] MR#: [id number] Case Date: 02/18/2024 Surgeon: Surgeon(s) and Role: [...] 2:14 AM EDT DIFFERENTIAL, AUTOMATED Routine 02/25/20 24 2:14 AM EDT CBC (WITH DIFF) Routine [...] 02/23/20 7:12 AM EDT TYPE AND SCREEN ([facility]/CGP/CHASE) Routine 02/23/2024 7:12 AM EDT VANCOMYCIN LEVEL, [...] TO PATHOLOGY Routine 02/21/2024 5:05 PM EDT POCT GLUCOSE Routine 02/21/2024 3:12 PM EDT [...] 7:02 PM EDT Amputation Low Leg, Circular (91237) 02/18/2024 6:26 PM EDT LLE wound AMPUTATION, [...] Glucose, POC 223(H) 65 - 199 mg/dL [facility] Comment: Supplemental ranges: <140 mg/dL before meals <180 mg/dL all other times of the day Blood 02/25/2024 2:02 PM EDT 02/25/2024 2:02 PM EDT Ari Renae MD POINT OF CARE TEST O RDERABLES [facility] [place] [address] * POCT Glucose (02/25/2024 12:19 PM EDT) Glucose, POC 152 65 - 199 mg/dL [facility] Comment: Supplemental ranges: <140 mg/dL before meals <180 mg/dL all other times of the day Blood 02/25/2024 12:1 9 PM EDT 02/25/2024 12:19 PM EDT Ari Renae MD POINT OF CARE TEST O RDERAKEREN Performing Organization Address City/[facility] Co de Phone Number [facility] [place] [address] * POCT Glucose (02/25/2024 10:00 AM EDT) Glucose, POC 113 65 - 199 mg/dL [facility] Comment: Supplemental ranges: <140 mg/dL before meals <180 mg/dL all other times of the day Blood 02/25/2024 10:0 0 AM EDT 02/25/2024 10:00 AM EDT Ari Renae MD POINT OF CARE TEST O ADITIERAKEREN Performing Organization Address [facility] Co de Phone Number [facility] [place] [address] * POCT Glucose (02/25/2024 3:38 AM EDT) Glucose, POC 163 65 - 199 mg/dL [facility] Comment: Supplemental ranges: <140 mg/dL before meals <180 mg/dL all other times of the day Blood 02/25/2024 3:38 AM EDT 02/25/2024 3:38 AM EDT Ari Renae MD POINT OF CARE TEST O ADITIERAKEREN Performing Organization Address City/[facility] Co de Phone Number [facility] [place] [address] * (ABNORMAL) Differential, Automated (02/25/2024 2:14 AM EDT) Neutrophil % 66.9 % [facility] Neutrophil Absolute 8.49(H) 1.70 - 6.10 x10(3)/ L [facility] Lymph % 18.8 % [facility] Lymphocytes Abs 2.4 0.9 - 3.2 x10(3)/ L [facility] Monocyte % 10.5 % [facility] Monocyte Abs 1.3(H) 0.3 - 0.9 x10(3)/[facility] Eos % 2.7 % [facility] Eosinophils Abs 0.3 0.0 - 0.4 x10(3)/ L [facility] Basophil % 0.7 % [facility] Baso Absolute 0.1 0.0 - 0.1 x10(3)/[facility] Immature Gran % 0.40 % [facility] Comment: Immature granulocytes(IG's)percentage and absolute count will include metamyelocytes, myelocytes, and promyelocytes. Blood smears from CBCs yielding IG's will be scanned manually for concordance. If this scan disagrees with the automated IG or if promyelocytes are noted, a manual differential will be performed. Immature Gran Absolute 0.05(H) 0.00 - 0.04 x10(3)/[facility] Blood 02/25/2024 2:14 AM EDT 02/25/2024 2:22 AM EDT Narrative Resulting Agency Comment Spec In Lab Marti Garcia MD HEMATOLOGY ORDERABL ES [facility] [place] [address] * (ABNORMAL) Hemogram (02/25/2024 2:14 AM EDT) White Blood Cell 12.7(H) 4.0 - 9.5 x10(3)/ L [facility] Red Blood Cell 2.96(L) 4.58 - 5.54 x10(6)/[facility] Hemoglobin 8.4(L) 13.7 - 16.5 g/dL [facility] Hematocrit 26.6(L) 40.5 - 48.5 % [facility] Mean Cell Volume 89.9 82.9 - 93.1 fL [facility] Mean Cell Hemoglobin 28.4 27.5 - 32.1 pg [facility] Mean Cell Hemoglobin Concentration 31.6(L) 32.0 - 35.7 g/dL [facility] Platelet 482(H) 145 - 357 x10(3)/mc L [facility] RDW Standard Deviation 47.5(H) 36.0 - 45.0 fL [facility] RDW coefficient of variation 14.6(H) 11.4 - 13.8 % [facility] Mean Platelet Volume 10.6 7.6 - 12.9 fL [facility] NRBC% auto 0.0 % [facility] NRBC Absolute 0.000 0.000 - 0.000 x10(3)/mc L [facility] Blood 02/25/2024 2:14 AM EDT 02/25/2024 2:22 AM EDT Narrative Resulting Agency Comment Spec In Lab Marti Garcia MD HEMATOLOGY ORDERABL ES Performing Organization Address City/[facility]/[place] [address] * (ABNORMAL) Phosphorus (02/25/2024 2:14 AM EDT) Phosphorus 5.6(H) 2.5 - 4.5 mg/dL [facility] Blood 02/25/2024 2:14 AM EDT 02/25/2024 2:22 AM EDT Narrative Resulting Agency Comment Spec In Lab Ari Renae MD CHEMISTRY ORDERABLES [facility] [place] [address] * Magnesium (02/25/2024 2:14 AM EDT) Magnesium 0.87 0.69 - 1.07 mmol/L [facility] Blood 02/25/2024 2:14 AM EDT 02/25/2024 2:22 AM EDT Narrative Resulting Agency Comment Spec In Lab Ari Renae MD CHEMISTRY ORDERABLES [facility] [place] [address] * (ABNORMAL) Basic Metabolic Panel (non-fasting) (02/25/2024 2:14 AM EDT) Glucose 194 65 - 199 mg/dL [facility] Comment:Diabetes: >=200 mg/d L plus symptoms Blood Urea Nitrogen 32(H) 10 - 20 mg/dL [facility] Creatinine 6.92(H) 0.80 - 1.50 mg/dL [facility] Comment:result rechecked-MG Sodium 137 135 - 145 mmol/L [facility] Potassium 5.1(H) 3.5 - 5.0 mmol/L [facility] Comment: Please note: ??Patients with WBC >100,000 may have falsely elevated Potassium levels. ??For accurate Potassium quantification in these patients send serum separator tube (gold top) for subsequent determinations. ??Contact the Clinical Chemistry Laboratory if there are any questions. Chloride 98 98 - 107 mmol/L [facility] Carbon Dioxide 26 22 - 31 mmol/L [facility] Anion Gap 13 5 - 15 mmol/L [facility] Calcium 8.9 8.5 - 10.5 mg/dL [facility] Est Glomerular Filtration Rate 9(L) >=60 mL/min/1. 73 m?? [facility] Comment: This patient's estimated [...] Renae MD CHEMISTRY ORDERABLES Performing Organization Address [facility] de Phone Number [facility] [place] [address] * (ABNORMAL) POCT Glucose (02/24/2024 11:33 PM EDT) Glucose, POC 214(H) 65 - 199 mg/dL [facility] Comment: Supplemental ranges: <140 mg/dL before meals <180 mg/dL all other times of the day Blood 02/24/2024 11:3 3 PM EDT 02/24/2024 11:33 PM EDT Ari Renae MD POINT OF CARE TEST O RDERAKEREN Performing Organization Address [facility] de Phone Number [facility] [place] [address] * (ABNORMAL) POCT Glucose (02/24/2024 8:15 PM EDT) Glucose, POC 225(H) 65 - 199 mg/dL [facility] Comment: Supplemental ranges: <140 mg/dL before meals <180 mg/dL all other times of the day Blood 02/24/2024 8:15 PM EDT 02/24/2024 8:15 PM EDT Ari Renae MD POINT OF CARE TEST O RDERABLES Performing Organization Address [facility]/ZIP Co de Phone Number [facility] [place] [address] * (ABNORMAL) POCT Glucose (02/24/2024 4:13 PM EDT) Glucose, POC 210(H) 65 - 199 mg/dL [facility] Comment: Supplemental ranges: <140 mg/dL before meals <180 mg/dL all other times of the day Blood 02/24/2024 4:13 PM EDT 02/24/2024 4:13 PM EDT Ari Renae MD POINT OF CARE TEST O RDLIEN Performing Organization Address [facility] Co de Phone Number [facility] [place] [address] * POCT Glucose (02/24/2024 12:05 PM EDT) Glucose, POC 147 65 - 199 mg/dL [facility] Comment: Supplemental ranges: <140 mg/dL before meals <180 mg/dL all other times of the day Blood 02/24/2024 12:0 5 PM EDT 02/24/2024 12:05 PM EDT Ari Renae MD POINT OF CARE TEST O RDERAKEREN Performing Organization Address [facility] Co de Phone Number [facility] [place] [address] * POCT Glucose (02/24/2024 7:44 AM EDT) Glucose, POC 114 65 - 199 mg/dL [facility] Comment: Supplemental ranges: <140 mg/dL before meals <180 mg/dL all other times of the day Blood 02/24/2024 7:44 AM EDT 02/24/2024 7:44 AM EDT Ari Renae MD POINT OF CARE TEST O RDERAKEREN Performing Organization Address City/[facility]/ZIP Co de Phone Number [facility] [place] [address] * (ABNORMAL) PTH (02/24/2024 6:07 AM EDT) [facility] Parathyroid Hormone 180(H) 15 - 65 pg/mL [facility] Blood Venous Draw / Unknown 02/24/2024 6:07 AM EDT 02/24/2024 4:52 PM EDT Narrative Resulting Agency Comment Spec In Lab Jordan Sepulveda MD CHEMISTRY ORDERABLES [facility] [place] [address] * (ABNORMAL) Iron and TIBC (02/24/2024 6:07 AM EDT) [facility] Iron 19(L) 45 - 160 mcg/dL [facility] TIBC 120(L) 250 - 450 mcg/dL [facility] Iron Saturation 16(L) 20 - 50 % [facility] Blood Venous Draw / Unknown 02/24/2024 6:07 AM EDT 02/24/2024 6:28 AM EDT Narrative Resulting Agency Comment Spec In Lab Jordan Sepulveda MD CHEMISTRY ORDERABLES [facility] [place] [address] * (ABNORMAL) Differential, Automated (02/24/2024 6:07 AM EDT) [facility] Neutrophil % 72.2 % [facility] Neutrophil Absolute 10.22(H) 1.70 - 6.10 x10(3)/mc L [facility] Lymph % 13.2 % [facility] Lymphocytes Abs 1.9 0.9 - 3.2 x10(3)/mc L [facility] Monocyte % 10.9 % [facility] Monocyte Abs 1.5(H) 0.3 - 0.9 x10(3)/[facility] Eos % 2.8 % [facility] Eosinophils Abs 0.4 0.0 - 0.4 x10(3)/[facility] Basophil % 0.4 % [facility] Baso Absolute 0.1 0.0 - 0.1 x10(3)/[facility] Immature Gran % 0.50 % [facility] Comment: Immature granulocytes(IG's)percentage and absolute count will include metamyelocytes, myelocytes, and promyelocytes. Blood smears from CBCs yielding IG's will be scanned manually for concordance. If this scan disagrees with the automated IG or if promyelocytes are noted, a manual differential will be performed. Immature Gran Absolute 0.07(H) 0.00 - 0.04 x10(3)/[facility] Blood 02/24/2024 6:07 AM EDT 02/24/2024 6:23 AM EDT Narrative Resulting Agency Comment Spec In Lab Marti Garcia MD HEMATOLOGY ORDERABL ES [facility] [place] [address] * (ABNORMAL) Hemogram (02/24/2024 6:07 AM EDT) White Blood Cell 14.1(H) 4.0 - 9.5 x10(3)/[facility] Red Blood Cell 2.91(L) 4.58 - 5.54 x10(6)/[facility] Hemoglobin 8.4(L) 13.7 - 16.5 g/dL [facility] Hematocrit 25.8(L) 40.5 - 48.5 % [facility] Mean Cell Volume 88.7 82.9 - 93.1 fL [facility] Mean Cell Hemoglobin 28.9 27.5 - 32.1 pg [facility] Mean Cell Hemoglobin Concentration 32.6 32.0 - 35.7 g/dL [facility] Platelet 445(H) 145 - 357 x10(3)/mc L [facility] RDW Standard Deviation 47.0(H) 36.0 - 45.0 fL [facility] RDW coefficient of variation 14.5(H) 11.4 - 13.8 % [facility] Mean Platelet Volume 10.7 7.6 - 12.9 fL [facility] NRBC% auto 0.0 % [facility] NRBC Absolute 0.000 0.000 - 0.000 x10(3)/mc L [facility] Blood 02/24/2024 6:07 AM EDT 02/24/2024 6:23 AM EDT Narrative Resulting Agency Comment Spec In Lab Marti Garcia MD HEMATOLOGY ORDERABL ES Performing Organization Address City/[facility]/ZIP Co de Phone Number [facility] [place] [address] * (ABNORMAL) Phosphorus (02/24/2024 6:07 AM EDT) Phosphorus 4.8(H) 2.5 - 4.5 mg/dL [facility] Blood 02/24/2024 6:07 AM EDT 02/24/2024 6:23 AM EDT Narrative Resulting Agency Comment Spec In Lab Ari Renae MD CHEMISTRY ORDERABLES [facility] [place] [address] * Magnesium (02/24/2024 6:07 AM EDT) Magnesium 0.84 0.69 - 1.07 mmol/L [facility] Blood 02/24/2024 6:07 AM EDT 02/24/2024 6:23 AM EDT Narrative Resulting Agency Comment Spec In Lab Ari Renae MD CHEMISTRY ORDERABLES [facility] [place] [address] * (ABNORMAL) Basic Metabolic Panel (non-fasting) (02/24/2024 6:07 AM EDT) Glucose 123 65 - 199 mg/dL [facility] Comment:Diabetes: >=200 mg/d L plus symptoms Blood Urea Nitrogen 25(H) 10 - 20 mg/dL [facility] Creatinine 5.70(H) 0.80 - 1.50 mg/dL [facility] Comment:result rechecked-tmp Sodium 137 135 - 145 mmol/L [facility] Potassium 4.7 3.5 - 5.0 mmol/L [facility] Comment: Please note: ??Patients with WBC >100,000 may have falsely elevated Potassium levels. ??For accurate Potassium quantification in these patients send serum separator tube (gold top) for subsequent determinations. ??Contact the Clinical Chemistry Laboratory if there are any questions. Chloride 97(L) 98 - 107 mmol/L [facility] Carbon Dioxide 26 22 - 31 mmol/L [facility] Anion Gap 14 5 - 15 mmol/L [facility] Calcium 9.2 8.5 - 10.5 mg/dL [facility] Est Glomerular Filtration Rate 11(L) >=60 mL/min/1. 73 m?? [facility] Comment: This patient's estimated [...] In Lab Ari Renae MD CHEMISTRY ORDERABLES [facility] [place] [address] * POCT Glucose (02/24/2024 4:01 AM EDT) Glucose, POC 106 65 - 199 mg/dL [facility] Comment: Supplemental ranges: <140 mg/dL before meals <180 mg/dL all other times of the day Blood 02/24/2024 4:01 AM EDT 02/24/2024 4:01 AM EDT Ari Renae MD POINT OF CARE TEST O RDERABLES Performing Organization Address [facility]/ZIP Co de Phone Number [facility] [place] [address] * POCT Glucose (02/23/2024 11:55 PM EDT) Glucose, POC 93 65 - 199 mg/dL [facility] Comment: Supplemental ranges: <140 mg/dL before meals <180 mg/dL all other times of the day Blood 02/23/2024 11:5 5 PM EDT 02/23/2024 11:55 PM EDT Ari Renae MD POINT OF CARE TEST O CARMELITA Performing Organization Address City/[facility]/ZIP Co de Phone Number [facility] [place] [address] * POCT Glucose (02/23/2024 7:33 PM EDT) Glucose, POC 103 65 - 199 mg/dL [facility] Comment: Supplemental ranges: <140 mg/dL before meals <180 mg/dL all other times of the day Blood 02/23/2024 7:33 PM EDT 02/23/2024 7:33 PM EDT Ari Renae MD POINT OF CARE TEST O RDERABLES [facility] [place] [address] * (ABNORMAL) Hemogram (02/23/2024 5:25 PM EDT) White Blood Cell 14.8(H) 4.0 - 9.5 x10(3)/mc L [facility] Red Blood Cell 3.39(L) 4.58 - 5.54 x10(6)/mc L [facility] Hemoglobin 9.7(L) 13.7 - 16.5 g/dL [facility] Hematocrit 30.2(L) 40.5 - 48.5 % [facility] Mean Cell Volume 89.1 82.9 - 93.1 fL [facility] Mean Cell Hemoglobin 28.6 27.5 - 32.1 pg [facility] Mean Cell Hemoglobin Concentration 32.1 32.0 - 35.7 g/dL [facility] Platelet 476(H) 145 - 357 x10(3)/mc L [facility] RDW Standard Deviation 46.4(H) 36.0 - 45.0 fL [facility] RDW coefficient of variation 14.3(H) 11.4 - 13.8 % [facility] Mean Platelet Volume 10.9 7.6 - 12.9 fL [facility] NRBC% auto 0.0 % [facility] NRBC Absolute 0.000 0.000 - 0.000 x10(3)/mc L [facility] Blood 02/23/2024 5:25 PM EDT 02/23/2024 5:45 PM EDT Narrative Resulting Agency Comment Spec In Lab Ari Renae MD HEMATOLOGY ORDERABLE S Performing Organization Address [facility]/ZIP Co de Phone Number [facility] [place] [address] * POCT Glucose (02/23/2024 4:48 PM EDT) Glucose, POC 129 65 - 199 mg/dL [facility] Comment: Supplemental ranges: <140 mg/dL before meals <180 mg/dL all other times of the day Blood 02/23/2024 4:48 PM EDT 02/23/2024 4:48 PM EDT Ari Renae MD POINT OF CARE TEST O CARMELITA Performing Organization Address [facility] Co de Phone Number [facility] [place] [address] * POCT Glucose (02/23/2024 3:06 PM EDT) Glucose, POC 113 65 - 199 mg/dL [facility] Comment: Supplemental ranges: <140 mg/dL before meals <180 mg/dL all other times of the day Blood 02/23/2024 3:06 PM EDT 02/23/2024 3:06 PM EDT Ari Renae MD POINT OF CARE TEST O CARMELITA Performing Organization Address [facility] Co de Phone Number [facility] [place] [address] * (ABNORMAL) POCT Glucose (02/23/2024 2:26 PM EDT) Glucose, POC 63(L) 65 - 199 mg/dL [facility] Comment: Supplemental ranges: <140 mg/dL before meals <180 mg/dL all other times of the day Blood 02/23/2024 2:26 PM EDT 02/23/2024 2:26 PM EDT Ari Renae MD POINT OF CARE TEST O RDERABLES Performing Organization Address [facility]/ZIP Co de Phone Number [facility] [place] [address] * (ABNORMAL) POCT Glucose (02/23/2024 1:42 PM EDT) Glucose, POC 57(L) 65 - 199 mg/dL [facility] Comment: Supplemental ranges: <140 mg/dL before meals <180 mg/dL all other times of the day Blood 02/23/2024 1:42 PM EDT 02/23/2024 1:42 PM EDT Ari Renae MD POINT OF CARE TEST O RDERABLES Performing Organization Address [facility]/ZIP Co de Phone Number [facility] [place] [address] * POCT Glucose (02/23/2024 1:15 PM EDT) Glucose, POC 69 65 - 199 mg/dL [facility] Comment: Supplemental ranges: <140 mg/dL before meals <180 mg/dL all other times of the day Blood 02/23/2024 1:15 PM EDT 02/23/2024 1:15 PM EDT Ari Renae MD POINT OF CARE TEST O RDERABLES Performing Organization Address City/[facility]/ZIP Co de Phone Number [facility] [place] [address] * Transfuse RBC (02/23/2024 11:44 AM EDT) Ari Renae MD NURSING TREATMENT OR DERABLES - BLOOD ADMIN * Transfuse RBC (02/23/2024 11:44 AM EDT) Ari Renae MD NURSING TREATMENT OR DERABLES - BLOOD ADMIN * POCT Glucose (02/23/2024 8:14 AM EDT) Glucose, POC 111 65 - 199 mg/dL [facility] Comment: Supplemental ranges: <140 mg/dL before meals <180 mg/dL all other times of the day Blood 02/23/2024 8:14 AM EDT 02/23/2024 8:14 AM EDT Ari Renae MD POINT OF CARE TEST O RDERABLES [facility] [place] [address] * ABORh Type Manual (02/23/2024 7:12 AM EDT) ABORH TYPE A POSITIVE [facility] 02/23/2024 7:12 AM EDT 02/23/2024 7:12 AM EDT Jean Henning MD BLOOD BANK LAB O RDERABLES [facility] [place] [address] * Antibody identification (02/23/2024 7:12 AM EDT) Ab Identified [facility] 02/23/2024 7:12 AM EDT 02/23/2024 7:12 AM EDT Jean Henning MD BLOOD BANK LAB O RDERABLES [facility] [place] [address] * ABORH Recheck Status (02/23/2024 7:12 AM EDT) ABORH Type Recheck Completed [facility] Blood 02/23/2024 7:12 AM EDT 02/23/2024 7:17 AM EDT Narrative Resulting Agency Comment Spec In Lab Jean Henning MD BLOOD BANK LAB O RDERABLES [facility] [place] [address] * Type and screen [place] (02/23/2024 7:12 AM EDT) Patient BB History Found [facility] Expires at [id number] on: 02/26/2024 [facility] Ab Screen Interp Negative [facility] Blood 02/23/2024 7:12 AM EDT 02/23/2024 7:12 AM EDT Narrative [facility] - 02/23/2024 7:12 AM EDT This Type and Screen result is only valid at the [facility] Resulting Agency Comment Spec In Lab Ari Renae MD BLOOD BANK LAB ORDER FRANSISCO [facility] [place] [address] * (ABNORMAL) Differential, Automated (02/23/2024 4:11 AM EDT) Pathologist [facility] Neutrophil % 72.9 % [facility] Neutrophil Absolute 11.74(H) 1.70 - 6.10 x10(3)/mc L [facility] Lymph % 11.6 % [facility] Lymphocytes Abs 1.9 0.9 - 3.2 x10(3)/mc L [facility] Monocyte % 12.6 % [facility] Monocyte Abs 2.0(H) 0.3 - 0.9 x10(3)/mc L [facility] Eos % 2.0 % [facility] Eosinophils Abs 0.3 0.0 - 0.4 x10(3)/mc L [facility] Basophil % 0.4 % [facility] Baso Absolute 0.1 0.0 - 0.1 x10(3)/mc L [facility] Immature Gran % 0.50 % [facility] Comment: Immature granulocytes(IG's)percentage and absolute count will include metamyelocytes, myelocytes, and promyelocytes. Blood smears from CBCs yielding IG's will be scanned manually for concordance. If this scan disagrees with the automated IG or if promyelocytes are noted, a manual differential will be performed. Immature Gran Absolute 0.08(H) 0.00 - 0.04 x10(3)/mc L [facility] Blood 02/23/2024 4:11 AM EDT 02/23/2024 4:36 AM EDT Narrative Resulting Agency Comment Spec In Lab Marti Garcia MD HEMATOLOGY ORDERABL ES [facility] [place] [address] * (ABNORMAL) Hemogram (02/23/2024 4:11 AM EDT) White Blood Cell 16.1(H) 4.0 - 9.5 x10(3)/mc L [facility] Red Blood Cell 2.45(L) 4.58 - 5.54 x10(6)/mc L [facility] Hemoglobin 6.9(L) 13.7 - 16.5 g/dL [facility] Hematocrit 21.6(L) 40.5 - 48.5 % [facility] Mean Cell Volume 88.2 82.9 - 93.1 fL [facility] Mean Cell Hemoglobin 28.2 27.5 - 32.1 pg [facility] Mean Cell Hemoglobin Concentration 31.9(L) 32.0 - 35.7 g/dL [facility] Platelet 388(H) 145 - 357 x10(3)/mc L [facility] RDW Standard Deviation 47.5(H) 36.0 - 45.0 fL [facility] RDW coefficient of variation 14.6(H) 11.4 - 13.8 % [facility] Mean Platelet Volume 10.9 7.6 - 12.9 [facility] NRBC% auto 0.0 % [facility] NRBC Absolute 0.000 0.000 - 0.000 x10(3)/mc L [facility] Blood 02/23/2024 4:11 AM EDT 02/23/2024 4:36 AM EDT Narrative Resulting Agency Comment Spec In Lab Marti Garcia MD HEMATOLOGY ORDERABL ES Performing Organization Address City/[facility]/ZIP Co de Phone Number [facility] [place] [address] * (ABNORMAL) Phosphorus (02/23/2024 4:11 AM EDT) Phosphorus 5.5(H) 2.5 - 4.5 mg/dL [facility] Blood 02/23/2024 4:11 AM EDT 02/23/2024 4:36 AM EDT Narrative Resulting Agency Comment Spec In Lab Ari Renae MD CHEMISTRY ORDERABLES Performing Organization Address [facility] Co de Phone Number [facility] [place] [address] * Magnesium (02/23/2024 4:11 AM EDT) Magnesium 0.83 0.69 - 1.07 mmol/L [facility] Blood 02/23/2024 4:11 AM EDT 02/23/2024 4:36 AM EDT Narrative Resulting Agency Comment Spec In Lab Ari Renae MD CHEMISTRY ORDERABLES Performing Organization Address [facility]/ZIP Co de Phone Number [facility] [place] [address] * (ABNORMAL) Basic Metabolic Panel (non-fasting) (02/23/2024 4:11 AM EDT) Glucose 98 65 - 199 mg/dL [facility] Comment:Diabetes: >=200 mg/d L plus symptoms Blood Urea Nitrogen 34(H) 10 - 20 mg/dL [facility] Creatinine 7.00(H) 0.80 - 1.50 mg/dL [facility] Comment:result rechecked-MG Sodium 137 135 - 145 mmol/L [facility] Potassium 4.9 3.5 - 5.0 mmol/L [facility] Comment: Please note: ??Patients with WBC >100,000 may have falsely elevated Potassium levels. ??For accurate Potassium quantification in these patients send serum separator tube (gold top) for subsequent determinations. ??Contact the Clinical Chemistry Laboratory if there are any questions. Chloride 98 98 - 107 mmol/L [facility] LABORATORY Carbon Dioxide 26 22 - 31 mmol/L [facility] Anion Gap 13 5 - 15 mmol/L [facility] Calcium 8.5 8.5 - 10.5 mg/dL [facility] Est Glomerular Filtration Rate 8(L) >=60 mL/min/1. 73 m?? [facility] Comment: This patient's estimated [...] In Lab Ari Renae MD CHEMISTRY ORDERABLES [facility] [place] [address] * Vancomycin Level, Random (02/23/2024 4:11 AM EDT) Vancomycin, Random 26.7 mg/L [facility] Comment: This level is for determination of the patient's vancomycin fcub-drnya-pie-curve (AUC) value. Contact the inpatient pharmacy for interpretation. Blood 02/23/2024 4:11 AM EDT 02/23/2024 4:36 AM EDT Ari Renae MD CHEMISTRY ORDERABLES Performing Organization Address [facility] Co de Phone Number [facility] [place] [address] * POCT Glucose (02/23/2024 4:06 AM EDT) Glucose, POC 100 65 - 199 mg/dL [facility] Comment: Supplemental ranges: <140 mg/dL before meals <180 mg/dL all other times of the day Blood 02/23/2024 4:06 AM EDT 02/23/2024 4:06 AM EDT Ari Renae MD POINT OF CARE TEST O RDERABLES Performing Organization Address [facility] Co de Phone Number [facility] [place] [address] * POCT Glucose (02/23/2024 2:06 AM EDT) Glucose, POC 86 65 - 199 mg/dL [facility] Comment: Supplemental ranges: <140 mg/dL before meals <180 mg/dL all other times of the day Blood 02/23/2024 2:06 AM EDT 02/23/2024 2:06 AM EDT Ari Renae MD POINT OF CARE TEST O RDERABLES Performing Organization Address [facility] Co de Phone Number [facility] [place] [address] * POCT Glucose (02/23/2024 12:42 AM EDT) Glucose, POC 79 65 - 199 mg/dL [facility] Comment: Supplemental ranges: <140 mg/dL before meals <180 mg/dL all other times of the day Blood 02/23/2024 12:4 2 AM EDT 02/23/2024 12:42 AM EDT Ari Renae MD POINT OF CARE TEST O CARMELITA [facility] [place] [address] * POCT Glucose (02/22/2024 11:34 PM EDT) Glucose, POC 76 65 - 199 mg/dL [facility] Comment: Supplemental ranges: <140 mg/dL before meals <180 mg/dL all other times of the day Blood 02/22/2024 11:3 4 PM EDT 02/22/2024 11:34 PM EDT Ari Renae MD POINT OF CARE TEST O CARMELITA Performing Organization Address [facility]/ZIP Co de Phone Number [facility] [place] [address] * POCT Glucose (02/22/2024 7:42 PM EDT) Glucose, POC 174 65 - 199 mg/dL [facility] Comment: Supplemental ranges: <140 mg/dL before meals <180 mg/dL all other times of the day Blood 02/22/2024 7:42 PM EDT 02/22/2024 7:42 PM EDT Ari Renae MD POINT OF CARE TEST O CARMELITA [facility] [place] [address] * POCT Glucose (02/22/2024 4:00 PM EDT) Glucose, POC 190 65 - 199 mg/dL [facility] Comment: Supplemental ranges: <140 mg/dL before meals <180 mg/dL all other times of the day Blood 02/22/2024 4:00 PM EDT 02/22/2024 4:00 PM EDT Ari Renae MD POINT OF CARE TEST O CARMELITA Performing Organization Address City/[facility]/ZIP Co de Phone Number [facility] [place] [address] * POCT Glucose (02/22/2024 11:48 AM EDT) Glucose, POC 163 65 - 199 mg/dL [facility] Comment: Supplemental ranges: <140 mg/dL before meals <180 mg/dL all other times of the day Blood 02/22/2024 11:4 8 AM EDT 02/22/2024 11:48 AM EDT Ari Renae MD POINT OF CARE TEST O CARMELITA Performing Organization Address [facility]/ZIP Co de Phone Number [facility] [place] [address] * POCT Glucose (02/22/2024 8:09 AM EDT) Glucose, POC 132 65 - 199 mg/dL [facility] Comment: Supplemental ranges: <140 mg/dL before meals <180 mg/dL all other times of the day Blood 02/22/2024 8:09 AM EDT 02/22/2024 8:09 AM EDT Ari Renae MD POINT OF CARE TEST O CARMELITA Performing Organization Address City/[facility]/ZIP Co de Phone Number [facility] [place] [address] * (ABNORMAL) Albumin Level (02/22/2024 4:53 AM EDT) Albumin 2.8(L) 3.2 - 5.2 g/dL [facility] Blood Venous Draw / Unknown 02/22/2024 4:53 AM EDT 02/22/2024 5:28 AM EDT Narrative Resulting Agency Comment Spec In Lab Jordan Sepulveda MD CHEMISTRY ORDERABLES Performing Organization Address City/[facility]/ZIP Co de Phone Number [facility] [place] [address] * Scan, Peripheral Blood (02/22/2024 4:53 AM EDT) Pathologist [facility] Plat estimate Increased [facility] RBC Morphology Abnormal [facility] Hypochromia Slight [facility] Blood 02/22/2024 4:53 AM EDT 02/22/2024 5:27 AM EDT Narrative Resulting Agency Comment Spec In Lab Marit Garcia MD HEMATOLOGY ORDERABL ES Performing Organization Address City/[facility]/ZIP Co de Phone Number [facility] [place] [address] * (ABNORMAL) Differential, Automated (02/22/2024 4:53 AM EDT) [facility] Neutrophil % 79.8 % [facility] Neutrophil Absolute 13.13(H) 1.70 - 6.10 x10(3)/mc L [facility] Lymph % 7.7 % [facility] Lymphocytes Abs 1.3 0.9 - 3.2 x10(3)/mc L [facility] Monocyte % 9.9 % [facility] Monocyte Abs 1.6(H) 0.3 - 0.9 x10(3)/mc L [facility] Eos % 1.8 % [facility] Eosinophils Abs 0.3 0.0 - 0.4 x10(3)/mc L [facility] Basophil % 0.4 % [facility] Baso Absolute 0.1 0.0 - 0.1 x10(3)/mc L [facility] Immature Gran % 0.40 % [facility] Comment: Immature granulocytes(IG's)percentage and absolute count will include metamyelocytes, myelocytes, and promyelocytes. Blood smears from CBCs yielding IG's will be scanned manually for concordance. If this scan disagrees with the automated IG or if promyelocytes are noted, a manual differential will be performed. Immature Gran Absolute 0.06(H) 0.00 - 0.04 x10(3)/mc L [facility] Blood 02/22/2024 4:53 AM EDT 02/22/2024 5:27 AM EDT Narrative Resulting Agency Comment Spec In Lab Marti Garcia MD HEMATOLOGY ORDERABL ES [facility] [place] [address] * (ABNORMAL) Hemogram (02/22/2024 4:53 AM EDT) White Blood Cell 16.4(H) 4.0 - 9.5 x10(3)/mc L [facility] Red Blood Cell 2.87(L) 4.58 - 5.54 x10(6)/mc L [facility] Hemoglobin 8.1(L) 13.7 - 16.5 g/dL [facility] Hematocrit 25.3(L) 40.5 - 48.5 % [facility] Mean Cell Volume 88.2 82.9 - 93.1 fL [facility] Mean Cell Hemoglobin 28.2 27.5 - 32.1 pg [facility] Mean Cell Hemoglobin Concentration 32.0 32.0 - 35.7 g/dL [facility] Platelet 434(H) 145 - 357 x10(3)/mc L [facility] RDW Standard Deviation 46.9(H) 36.0 - 45.0 fL [facility] RDW coefficient of variation 14.6(H) 11.4 - 13.8 % [facility] Mean Platelet Volume 11.1 7.6 - 12.9 fL [facility] NRBC% auto 0.0 % [facility] NRBC Absolute 0.000 0.000 - 0.000 x10(3)/mc L [facility] Blood 02/22/2024 4:53 AM EDT 02/22/2024 5:27 AM EDT Narrative Resulting Agency Comment Spec In Lab Marti Garcia MD HEMATOLOGY ORDERABL ES Performing Organization Address City/[facility]/ZIP Co de Phone Number [facility] [place] [address] * Phosphorus (02/22/2024 4:53 AM EDT) Phosphorus 4.4 2.5 - 4.5 mg/dL [facility] Blood 02/22/2024 4:53 AM EDT 02/22/2024 5:27 AM EDT Narrative Resulting Agency Comment Spec In Lab Ari Renae MD CHEMISTRY ORDERABLES Performing Organization Address City/[facility]/ZIP Co de Phone Number [facility] [place] [address] * Magnesium (02/22/2024 4:53 AM EDT) Magnesium 0.81 0.69 - 1.07 mmol/L [facility] Blood 02/22/2024 4:53 AM EDT 02/22/2024 5:27 AM EDT Narrative Resulting Agency Comment Spec In Lab Ari Renae MD CHEMISTRY ORDERABLES Performing Organization Address City/[facility]/ZIP Co de Phone Number [facility] [place] [address] * (ABNORMAL) Basic Metabolic Panel (non-fasting) (02/22/2024 4:53 AM EDT) Glucose 143 65 - 199 mg/dL [facility] Comment:Diabetes: >=200 mg/d L plus symptoms Blood Urea Nitrogen 25(H) 10 - 20 mg/dL [facility] Creatinine 5.47(H) 0.80 - 1.50 mg/dL [facility] Comment:result rechecked-hn Sodium 137 135 - 145 mmol/L [facility] Potassium 4.3 3.5 - 5.0 mmol/L [facility] Comment: Please note: ??Patients with WBC >100,000 may have falsely elevated Potassium levels. ??For accurate Potassium quantification in these patients send serum separator tube (gold top) for subsequent determinations. ??Contact the Clinical Chemistry Laboratory if there are any questions. Chloride 99 98 - 107 mmol/L [facility] Carbon Dioxide 28 22 - 31 mmol/L [facility] Anion Gap 10 5 - 15 mmol/L [facility] Calcium 8.4(L) 8.5 - 10.5 mg/dL [facility] Est Glomerular Filtration Rate 11(L) >=60 mL/min/1. 73 m?? [facility] Comment: This patient's estimated [...] In Lab Ari Renae MD CHEMISTRY ORDERABLES [facility] [place] [address] * POCT Glucose (02/22/2024 3:35 AM EDT) Glucose, POC 139 65 - 199 mg/dL [facility] Comment: Supplemental ranges: <140 mg/dL before meals <180 mg/dL all other times of the day Blood 02/22/2024 3:35 AM EDT 02/22/2024 3:35 AM EDT Ari Renae MD POINT OF CARE TEST O CARMELITA [facility] [place] [address] * POCT Glucose (02/21/2024 11:57 PM EDT) Glucose, POC 182 65 - 199 mg/dL [facility] Comment: Supplemental ranges: <140 mg/dL before meals <180 mg/dL all other times of the day Blood 02/21/2024 11:5 7 PM EDT 02/21/2024 11:57 PM EDT Ari Renae MD POINT OF CARE TEST O CARMELITA Performing Organization Address City/[facility]/ZIP Co de Phone Number [facility] [place] [address] * POCT Glucose (02/21/2024 8:15 PM EDT) Glucose, POC 105 65 - 199 mg/dL [facility] Comment: Supplemental ranges: <140 mg/dL before meals <180 mg/dL all other times of the day Blood 02/21/2024 8:15 PM EDT 02/21/2024 8:15 PM EDT Ari Renae MD POINT OF CARE TEST O CARMELITA [facility] [place] [address] * (ABNORMAL) Hemoglobin and Hematocrit, blood (02/21/2024 7:15 PM EDT) Hemoglobin 8.3(L) 13.7 - 16.5 g/dL [facility] Hematocrit 27.4(L) 40.5 - 48.5 % [facility] Blood 02/21/2024 7:15 PM EDT 02/21/2024 7:27 PM EDT Narrative Resulting Agency Comment Spec In Lab Ari Renae MD HEMATOLOGY ORDERABLE S [facility] [place] [address] * POCT Glucose (02/21/2024 6:08 PM EDT) Glucose, POC 104 65 - 199 mg/dL [facility] Comment: Supplemental ranges: <140 mg/dL before meals <180 mg/dL all other times of the day Blood 02/21/2024 6:08 PM EDT 02/21/2024 6:08 PM EDT Ari Renae MD POINT OF CARE TEST O CARMELITA Performing Organization Address [facility]/ZIP Co de Phone Number [facility] [place] [address] * POCT Glucose (02/21/2024 5:17 PM EDT) Glucose, POC 100 65 - 199 mg/dL [facility] Comment: Supplemental ranges: <140 mg/dL before meals <180 mg/dL all other times of the day Blood 02/21/2024 5:17 PM EDT 02/21/2024 5:17 PM EDT Ari Renae MD POINT OF CARE TEST O CARMELITA [facility] [place] [address] * Specimen to Pathology (02/21/2024 5:05 PM EDT) AP Specimen 02/21/2024 5:05 PM EDT 02/21/2024 5:05 PM EDT Narrative [facility] - 02/21/2024 5:05 PM EDT Specimen requisition ordered. ??Separate Pathology report to follow Ari Renae MD PATHOLOGY/CYTOLOGY O CARMELITA [facility] [place] [address] * POCT Glucose (02/21/2024 3:12 PM EDT) Glucose, POC 123 65 - 199 mg/dL [facility] Comment: Supplemental ranges: <140 mg/dL before meals <180 mg/dL all other times of the day Blood 02/21/2024 3:12 PM EDT 02/21/2024 3:12 PM EDT Ari Renae MD POINT OF CARE TEST O RDLIEN Performing Organization Address [facility]/ZIP Co de Phone Number [facility] [place] [address] * POCT Glucose (02/21/2024 2:20 PM EDT) Glucose, POC 149 65 - 199 mg/dL [facility] Comment: Supplemental ranges: <140 mg/dL before meals <180 mg/dL all other times of the day Blood 02/21/2024 2:20 PM EDT 02/21/2024 2:20 PM EDT Ari Renae MD POINT OF CARE TEST O RDERAKEREN [facility] [place] [address] * POCT Glucose (02/21/2024 1:38 PM EDT) Glucose, POC 69 65 - 199 mg/dL [facility] Comment: Supplemental ranges: <140 mg/dL before meals <180 mg/dL all other times of the day Blood 02/21/2024 1:38 PM EDT 02/21/2024 1:38 PM EDT Ari Renae MD POINT OF CARE TEST O RDERAKEREN Performing Organization Address [facility] de Phone Number [facility] [place] [address] * POCT Glucose (02/21/2024 12:18 PM EDT) Glucose, POC 82 65 - 199 mg/dL [facility] Comment: Supplemental ranges: <140 mg/dL before meals <180 mg/dL all other times of the day Blood 02/21/2024 12:1 8 PM EDT 02/21/2024 12:18 PM EDT Ari Renae MD POINT OF CARE TEST O CARMELITA Performing Organization Address [facility] Co de Phone Number [facility] [place] [address] * Surgical Pathology Report (02/21/2024 12:01 PM EDT) Final Diagnosis [id number] ? Location: [facility]; [facility]; The signing pathologist has (i) examined the [...] MD Verified: ??02/24/2024 17:05 ??Pathologist Performed at: ??-[facility], [place] [address] Mastic Floor Layer: Karina Valencia MD, [facility], ??[place] Certificate: [id number] SPECIMEN(S) SUBMITTED A - Left Lower Leg [...] Patent. ??Anterior tibial artery: Patent. Sections/Proces sing: Weld [employer] Out Worker sections in 3 cassettes as follows: ?A1: ??Representativ e section soft tissue margin ?A2: ??Representativ e section anterior tibial artery ?A3: ??Representativ e section posterior tibial artery ??kjs 02/24/2024 5:05 PM EDT [facility] Extremity 02/21/2024 12:0 1 PM EDT 02/21/2024 12:01 PM EDT rAi Renae MD PATHOLOGY/CYTOLOGY O RDERAKEREN [facility] [place] [place] [address] * POCT Glucose (02/21/2024 8:36 AM EDT) Glucose, POC 106 65 - 199 mg/dL [facility] Comment: Supplemental ranges: <140 mg/dL before meals <180 mg/dL all other times of the day Blood 02/21/2024 8:36 AM EDT 02/21/2024 8:36 AM EDT Ari Renae MD POINT OF CARE TEST O RDERABLES Performing Organization Address City/[facility]/ZIP Co de Phone Number [facility] [place] [address] * Blood culture (02/21/2024 8:03 AM EDT) Blood Culture No growth at 5 days. [facility] Blood 02/21/2024 8:03 AM EDT 02/21/2024 9:09 AM EDT Comment:AU FISTULA Narrative Resulting Agency Comment Spec In Lab Fareed Bryant MD MICROBIOLOGY - BLOOD ORDERABLES Performing Organization Address City/[facility] Co de Phone Number [facility] [place] [address] * POCT Glucose (02/21/2024 7:41 AM EDT) Pathologist [facility] Glucose, POC 108 65 - 199 mg/dL [facility] Comment: Supplemental ranges: <140 mg/dL before meals <180 mg/dL all other times of the day Blood 02/21/2024 7:41 AM EDT 02/21/2024 7:41 AM EDT Ari Renae MD POINT OF CARE TEST O RDERABLES Performing Organization Address [facility] de Phone Number [facility] [place] [address] * Blood culture (02/21/2024 6:25 AM EDT) Blood Culture No growth at 5 days. [facility] Blood STRUCTURE OF RIGHT HAND / Unknown 02/21/2024 6:25 AM EDT 02/21/2024 7:57 AM EDT Narrative Resulting Agency Comment Spec In Lab Fareed Bryant MD MICROBIOLOGY - BLOOD ORDERABLES Performing Organization Address [facility] Co de Phone Number [facility] [place] [address] * (ABNORMAL) Differential, Automated (02/21/2024 6:02 AM EDT) Neutrophil % 66.8 % [facility] Neutrophil Absolute 8.66(H) 1.70 - 6.10 x10(3)/ L [facility] Lymph % 19.1 % [facility] Lymphocytes Abs 2.5 0.9 - 3.2 x10(3)/[facility] Monocyte % 9.7 % [facility] Monocyte Abs 1.2(H) 0.3 - 0.9 x10(3)/[facility] Eos % 3.5 % [facility] Eosinophils Abs 0.4 0.0 - 0.4 x10(3)/[facility] Basophil % 0.5 % [facility] Baso Absolute 0.1 0.0 - 0.1 x10(3)/[facility] Immature Gran % 0.40 % [facility] Comment: Immature granulocytes(IG's)percentage and absolute count will include metamyelocytes, myelocytes, and promyelocytes. Blood smears from CBCs yielding IG's will be scanned manually for concordance. If this scan disagrees with the automated IG or if promyelocytes are noted, a manual differential will be performed. Immature Gran Absolute 0.05(H) 0.00 - 0.04 x10(3)/[facility] Blood 02/21/2024 6:02 AM EDT 02/21/2024 6:30 AM EDT Narrative Resulting Agency Comment Spec In Lab Marti Garcia MD HEMATOLOGY ORDERABL ES [facility] [place] [address] * (ABNORMAL) Hemogram (02/21/2024 6:02 AM EDT) White Blood Cell 13.0(H) 4.0 - 9.5 x10(3)/[facility] Red Blood Cell 2.84(L) 4.58 - 5.54 x10(6)/[facility] Hemoglobin 8.0(L) 13.7 - 16.5 g/dL [facility] Hematocrit 25.8(L) 40.5 - 48.5 % [facility] Mean Cell Volume 90.8 82.9 - 93.1 [facility] Mean Cell Hemoglobin 28.2 27.5 - 32.1 pg [facility] Mean Cell Hemoglobin Concentration 31.0(L) 32.0 - 35.7 g/dL [facility] Platelet 510(H) 145 - 357 x10(3)/mc L [facility] RDW Standard Deviation 47.1(H) 36.0 - 45.0 [facility] RDW coefficient of variation 14.3(H) 11.4 - 13.8 % [facility] Mean Platelet Volume 11.0 7.6 - 12.9 [facility] NRBC% auto 0.0 % [facility] NRBC Absolute 0.000 0.000 - 0.000 x10(3)/[facility] Blood 02/21/2024 6:02 AM EDT 02/21/2024 6:30 AM EDT Narrative Resulting Agency Comment Spec In Lab Marti Garcia MD HEMATOLOGY ORDERABL ES Performing Organization Address City/[facility]/[place] [address] * (ABNORMAL) Phosphorus (02/21/2024 6:02 AM EDT) Phosphorus 5.2(H) 2.5 - 4.5 mg/dL [facility] Blood 02/21/2024 6:02 AM EDT 02/21/2024 6:30 AM EDT Narrative Resulting Agency Comment Spec In Lab Ari Renae MD CHEMISTRY ORDERABLES [facility] [place] [address] * Magnesium (02/21/2024 6:02 AM EDT) Pathologist [facility] Magnesium 0.93 0.69 - 1.07 mmol/L [facility] Blood 02/21/2024 6:02 AM EDT 02/21/2024 6:30 AM EDT Narrative Resulting Agency Comment Spec In Lab Ari Renae MD CHEMISTRY ORDERABLES [facility] [place] [address] * (ABNORMAL) Basic Metabolic Panel (non-fasting) (02/21/2024 6:02 AM EDT) Pathologist [facility] Glucose 96 65 - 199 mg/dL [facility] Comment:Diabetes: >=200 mg/d L plus symptoms Blood Urea Nitrogen 46(H) 10 - 20 mg/dL [facility] Creatinine 8.39(H) 0.80 - 1.50 mg/dL [facility] Comment:result rechecked-el Sodium 139 135 - 145 mmol/L [facility] Potassium 5.1(H) 3.5 - 5.0 mmol/L [facility] Comment: Please note: ??Patients with WBC >100,000 may have falsely elevated Potassium levels. ??For accurate Potassium quantification in these patients send serum separator tube (gold top) for subsequent determinations. ??Contact the Clinical Chemistry Laboratory if there are any questions. Chloride 101 98 - 107 mmol/L [facility] Carbon Dioxide 26 22 - 31 mmol/L [facility] Anion Gap 12 5 - 15 mmol/L [facility] Calcium 9.2 8.5 - 10.5 mg/dL [facility] Est Glomerular Filtration Rate 7(L) >=60 mL/min/1. 73 m?? [facility] Comment: This patient's estimated [...] Renae MD CHEMISTRY ORDERABLES Performing Organization Address [facility] Co de Phone Number [facility] [place] [address] * POCT Glucose (02/21/2024 4:29 AM EDT) Glucose, POC 91 65 - 199 mg/dL [facility] Comment: Supplemental ranges: <140 mg/dL before meals <180 mg/dL all other times of the day Blood 02/21/2024 4:29 AM EDT 02/21/2024 4:29 AM EDT Ari Renae MD POINT OF CARE TEST O RDERABLES Performing Organization Address [facility] Co de Phone Number [facility] [place] [address] * POCT Glucose (02/21/2024 12:42 AM EDT) Glucose, POC 115 65 - 199 mg/dL [facility] Comment: Supplemental ranges: <140 mg/dL before meals <180 mg/dL all other times of the day Blood 02/21/2024 12:4 2 AM EDT 02/21/2024 12:42 AM EDT Ari Renae MD POINT OF CARE TEST O RDLIEN Performing Organization Address [facility] Co de Phone Number [facility] [place] [address] * SCAN DOC: LAB (02/21/2024 12:00 AM EDT) Narrative 02/21/2024 12:00 AM EDT Ordered by an unspecified provider. Scanning Provider MEDIA MGR SCAN EXT O RDR/RSLT * (ABNORMAL) POCT Glucose (02/20/2024 7:39 PM EDT) Glucose, POC 216(H) 65 - 199 mg/dL [facility] Comment: Supplemental ranges: <140 mg/dL before meals <180 mg/dL all other times of the day Blood 02/20/2024 7:39 PM EDT 02/20/2024 7:39 PM EDT Ari Renae MD POINT OF CARE TEST O CARMELITA [facility] [place] [address] * (ABNORMAL) POCT Glucose (02/20/2024 5:33 PM EDT) Glucose, POC 256(H) 65 - 199 mg/dL [facility] Comment: Supplemental ranges: <140 mg/dL before meals <180 mg/dL all other times of the day Blood 02/20/2024 5:33 PM EDT 02/20/2024 5:33 PM EDT Ari Renae MD POINT OF CARE TEST O RDERAKEREN [facility] [place] [address] * POCT Glucose (02/20/2024 12:14 PM EDT) Glucose, POC 174 65 - 199 mg/dL [facility] Comment: Supplemental ranges: <140 mg/dL before meals <180 mg/dL all other times of the day Blood 02/20/2024 12:1 4 PM EDT 02/20/2024 12:14 PM EDT Ari Renae MD POINT OF CARE TEST O RDERABLES [facility] [place] [address] * POCT Glucose (02/20/2024 8:20 AM EDT) Pathologist [facility] Glucose, POC 97 65 - 199 mg/dL [facility] Comment: Supplemental ranges: <140 mg/dL before meals <180 mg/dL all other times of the day Blood 02/20/2024 8:20 AM EDT 02/20/2024 8:20 AM EDT Ari Renae MD POINT OF CARE TEST O RDERAKEREN Performing Organization Address City/[facility]/ZIP Co de Phone Number [facility] [place] [address] * (ABNORMAL) Differential, Automated (02/20/2024 5:21 AM EDT) [facility] Neutrophil % 67.5 % [facility] Neutrophil Absolute 7.71(H) 1.70 - 6.10 x10(3)/mc L [facility] Lymph % 17.3 % [facility] Lymphocytes Abs 2.0 0.9 - 3.2 x10(3)/mc L [facility] Monocyte % 10.8 % [facility] Monocyte Abs 1.2(H) 0.3 - 0.9 x10(3)/mc L [facility] Eos % 3.5 % [facility] Eosinophils Abs 0.4 0.0 - 0.4 x10(3)/mc L [facility] Basophil % 0.5 % [facility] Baso Absolute 0.1 0.0 - 0.1 x10(3)/mc L [facility] Immature Gran % 0.40 % [facility] Comment: Immature granulocytes(IG's)percentage and absolute count will include metamyelocytes, myelocytes, and promyelocytes. Blood smears from CBCs yielding IG's will be scanned manually for concordance. If this scan disagrees with the automated IG or if promyelocytes are noted, a manual differential will be performed. Immature Gran Absolute 0.04 0.00 - 0.04 x10(3)/ L [facility] Blood 02/20/2024 5:21 AM EDT 02/20/2024 5:35 AM EDT Narrative Resulting Agency Comment Spec In Lab Marti Garcia MD HEMATOLOGY ORDERABL ES [facility] [place] [address] * (ABNORMAL) Hemogram (02/20/2024 5:21 AM EDT) White Blood Cell 11.4(H) 4.0 - 9.5 x10(3)/mc L [facility] Red Blood Cell 2.69(L) 4.58 - 5.54 x10(6)/mc L [facility] Hemoglobin 7.6(L) 13.7 - 16.5 g/dL [facility] Hematocrit 24.6(L) 40.5 - 48.5 % [facility] Mean Cell Volume 91.4 82.9 - 93.1 fL [facility] Mean Cell Hemoglobin 28.3 27.5 - 32.1 pg [facility] Mean Cell Hemoglobin Concentration 30.9(L) 32.0 - 35.7 g/dL [facility] Platelet 448(H) 145 - 357 x10(3)/mc L [facility] RDW Standard Deviation 48.0(H) 36.0 - 45.0 fL [facility] RDW coefficient of variation 14.3(H) 11.4 - 13.8 % [facility] Mean Platelet Volume 11.0 7.6 - 12.9 fL [facility] NRBC% auto 0.0 % [facility] NRBC Absolute 0.000 0.000 - 0.000 x10(3)/mc L [facility] Blood 02/20/2024 5:21 AM EDT 02/20/2024 5:35 AM EDT Narrative Resulting Agency Comment Spec In Lab Marti Garcia MD HEMATOLOGY ORDERABL ES [facility] [place] [address] * (ABNORMAL) Basic Metabolic Panel (non-fasting) (02/20/2024 5:21 AM EDT) Glucose 94 65 - 199 mg/dL [facility] Comment:Diabetes: >=200 mg/d L plus symptoms Blood Urea Nitrogen 37(H) 10 - 20 mg/dL [facility] Creatinine 6.78(H) 0.80 - 1.50 mg/dL [facility] Comment:result rechecked-[facility] Sodium 139 135 - 145 mmol/L [facility] Potassium 4.2 3.5 - 5.0 mmol/L [facility] Comment: Please note: ??Patients with WBC >100,000 may have falsely elevated Potassium levels. ??For accurate Potassium quantification in these patients send serum separator tube (gold top) for subsequent determinations. ??Contact the Clinical Chemistry Laboratory if there are any questions. Chloride 101 98 - 107 mmol/L [facility] Carbon Dioxide 26 22 - 31 mmol/L [facility] Anion Gap 12 5 - 15 mmol/L [facility] Calcium 9.0 8.5 - 10.5 mg/dL [facility] Est Glomerular Filtration Rate 9(L) >=60 mL/min/1. 73 m?? [facility] Comment: This patient's estimated [...] Renae MD CHEMISTRY ORDERABLES Performing Organization Address [facility] Phone Number [facility] [place] [address] * Vancomycin Level, Random (02/20/2024 5:21 AM EDT) Vancomycin, Random 32.7 mg/L [facility] Comment: This level is for determination of the patient's vancomycin jxpd-scmrx-eoh-curve (AUC) value. Contact the inpatient pharmacy for interpretation. Blood 02/20/2024 5:21 AM EDT 02/20/2024 5:35 AM EDT Ari Renae MD CHEMISTRY ORDERABLES Performing Organization Address [facility] Phone Number [facility] [place] [address] * POCT Glucose (02/20/2024 3:31 AM EDT) Glucose, POC 104 65 - 199 mg/dL [facility] Comment: Supplemental ranges: <140 mg/dL before meals <180 mg/dL all other times of the day Blood 02/20/2024 3:31 AM EDT 02/20/2024 3:31 AM EDT Air Renae MD POINT OF CARE TEST O RDERABLES Performing Organization Address City/[facility]/ZIP Co de Phone Number [facility] [place] [address] * POCT Glucose (02/19/2024 11:35 PM EDT) Glucose, POC 156 65 - 199 mg/dL [facility] Comment: Supplemental ranges: <140 mg/dL before meals <180 mg/dL all other times of the day Blood 02/19/2024 11:3 5 PM EDT 02/19/2024 11:35 PM EDT Ari Renae MD POINT OF CARE TEST O RDERABLES Performing Organization Address [facility] Co de Phone Number [facility] [place] [address] * (ABNORMAL) POCT Glucose (02/19/2024 7:52 PM EDT) Glucose, POC 212(H) 65 - 199 mg/dL [facility] Comment: Supplemental ranges: <140 mg/dL before meals <180 mg/dL all other times of the day Blood 02/19/2024 7:52 PM EDT 02/19/2024 7:52 PM EDT Ari Renae MD POINT OF CARE TEST O RDERAKEREN Performing Organization Address [facility] Co de Phone Number [facility] [place] [address] * (ABNORMAL) POCT Glucose (02/19/2024 4:00 PM EDT) Glucose, POC 211(H) 65 - 199 mg/dL [facility] Comment: Supplemental ranges: <140 mg/dL before meals <180 mg/dL all other times of the day Blood 02/19/2024 4:00 PM EDT 02/19/2024 4:00 PM EDT Ari Renae MD POINT OF CARE TEST O RDERABLES [facility] [place] [address] * Blood culture (02/19/2024 3:37 PM EDT) Blood Culture No growth at 5 days. [facility] Blood 02/19/2024 3:37 PM EDT 02/19/2024 4:53 PM EDT Comment:Jocelyn Valera, #2 Narrative Resulting Agency Comment Spec In Lab Ruby Mcgill APRN MICROBIOLOGY - BLO OD ORDERABLES Performing Organization Address [facility] Co de Phone Number [facility] [place] [address] * (ABNORMAL) Ferritin (02/19/2024 3:05 PM EDT) Ferritin 917(H) 31 - 409 ng/mL [facility] Comment: Please note that as of 09/29/2023, the reference intervals for Ferritin have been updated. Blood Venous Draw / Unknown 02/19/2024 3:05 PM EDT 02/19/2024 3:16 PM EDT Narrative Resulting Agency Comment Spec In Lab Jordan Sepulveda MD CHEMISTRY ORDERABLES Performing Organization Address [facility] Co de Phone Number [facility] [place] [address] * Blood culture (02/19/2024 3:05 PM EDT) Blood Culture No growth at 5 days. [facility] Blood 02/19/2024 3:05 PM EDT 02/19/2024 3:45 PM EDT Comment:Jocelyn Valera, #1 Narrative Resulting Agency Comment Spec In Lab Ruby Mcgill APRN MICROBIOLOGY - BLO OD ORDERABLES Performing Organization Address [facility] Co de Phone Number [facility] [place] [address] * Hepatitis B Surface Antibody (02/19/2024 3:05 PM EDT) Hepatitis B Surface Antibody, Quantitative 484.0 IU/L [facility] Comment: HepB Surface Ab Quant: Unvaccinated: < 8.5 IU/L Vaccinated: >= 11.5 IU/L Hepatitis B Surface Antibody Positive [facility] Comment: Patient is considered to be immune to HBV infection. Expected Results: Vaccinated: Positive Unvaccinated: Negative Blood 02/19/2024 3:05 PM EDT 02/19/2024 3:14 PM EDT Narrative Resulting Agency Comment Spec In Lab Ruby Mcgill APRN CHEMISTRY ORDERABL ES Performing Organization Address [facility] Co de Phone Number [facility] [place] [address] * Hepatitis B Surface Antigen (02/19/2024 3:05 PM EDT) Hepatitis B Surface Antigen Negative Negative [facility] Blood 02/19/2024 3:05 PM EDT 02/19/2024 3:14 PM EDT Narrative Resulting Agency Comment Spec In Lab Ruby Mcgill APRN CHEMISTRY ORDERABL ES Performing Organization Address [facility] Phone Number [facility] [place] [address] * POCT Glucose (02/19/2024 12:16 PM EDT) Glucose, POC 170 65 - 199 mg/dL [facility] Comment: Supplemental ranges: <140 mg/dL before meals <180 mg/dL all other times of the day Blood 02/19/2024 12:1 6 PM EDT 02/19/2024 12:16 PM EDT Ari Renae MD POINT OF CARE TEST O RDERABLES Performing Organization Address [facility] Co de Phone Number [facility] [place] [address] * POCT Glucose (02/19/2024 10:44 AM EDT) Glucose, POC 128 65 - 199 mg/dL [facility] Comment: Supplemental ranges: <140 mg/dL before meals <180 mg/dL all other times of the day Blood 02/19/2024 10:4 4 AM EDT 02/19/2024 10:44 AM EDT Ari Renae MD POINT OF CARE TEST O RDERAKEREN [facility] [place] [address] * POCT Glucose (02/19/2024 8:28 AM EDT) Glucose, POC 77 65 - 199 mg/dL [facility] Comment: Supplemental ranges: <140 mg/dL before meals <180 mg/dL all other times of the day Blood 02/19/2024 8:28 AM EDT 02/19/2024 8:28 AM EDT Ari Renae MD POINT OF CARE TEST O ADITIERAKEREN [facility] [place] [address] * POCT Glucose (02/19/2024 8:09 AM EDT) Glucose, POC 65 65 - 199 mg/dL [facility] Comment: Supplemental ranges: <140 mg/dL before meals <180 mg/dL all other times of the day Blood 02/19/2024 8:09 AM EDT 02/19/2024 8:09 AM EDT Ari Renae MD POINT OF CARE TEST O ADITIERAKEREN [facility] [place] [address] * (ABNORMAL) POCT Glucose (02/19/2024 7:48 AM EDT) Pathologist [facility] Glucose, POC 64(L) 65 - 199 mg/dL [facility] Comment: Supplemental ranges: <140 mg/dL before meals <180 mg/dL all other times of the day Blood 02/19/2024 7:48 AM EDT 02/19/2024 7:48 AM EDT Ari Renae MD POINT OF CARE TEST O RDERABLES [facility] [place] [address] * (ABNORMAL) Differential, Automated (02/19/2024 5:28 AM EDT) [facility] Neutrophil % 70.4 % [facility] Neutrophil Absolute 9.08(H) 1.70 - 6.10 x10(3)/mc L [facility] Lymph % 14.4 % [facility] Lymphocytes Abs 1.9 0.9 - 3.2 x10(3)/mc L [facility] Monocyte % 11.1 % [facility] Monocyte Abs 1.4(H) 0.3 - 0.9 x10(3)/mc L [facility] Eos % 3.0 % [facility] Eosinophils Abs 0.4 0.0 - 0.4 x10(3)/mc L [facility] Basophil % 0.6 % [facility] Baso Absolute 0.1 0.0 - 0.1 x10(3)/mc L [facility] Immature Gran % 0.50 % [facility] Comment: Immature granulocytes(IG's)percentage and absolute count will include metamyelocytes, myelocytes, and promyelocytes. Blood smears from CBCs yielding IG's will be scanned manually for concordance. If this scan disagrees with the automated IG or if promyelocytes are noted, a manual differential will be performed. Immature Gran Absolute 0.07(H) 0.00 - 0.04 x10(3)/[facility] Blood 02/19/2024 5:28 AM EDT 02/19/2024 5:39 AM EDT Narrative Resulting Agency Comment Spec In Lab Marti Garcia MD HEMATOLOGY ORDERABL ES [facility] [place] [address] * (ABNORMAL) Hemogram (02/19/2024 5:28 AM EDT) White Blood Cell 12.9(H) 4.0 - 9.5 x10(3)/[facility] Red Blood Cell 2.82(L) 4.58 - 5.54 x10(6)/[facility] Hemoglobin 8.0(L) 13.7 - 16.5 g/dL [facility] Hematocrit 25.8(L) 40.5 - 48.5 % [facility] Mean Cell Volume 91.5 82.9 - 93.1 [facility] Mean Cell Hemoglobin 28.4 27.5 - 32.1 pg [facility] Mean Cell Hemoglobin Concentration 31.0(L) 32.0 - 35.7 g/dL [facility] Platelet 371(H) 145 - 357 x10(3)/[facility] RDW Standard Deviation 49.1(H) 36.0 - 45.0 [facility] RDW coefficient of variation 14.5(H) 11.4 - 13.8 % [facility] Mean Platelet Volume 11.2 7.6 - 12.9 [facility] NRBC% auto 0.0 % [facility] NRBC Absolute 0.000 0.000 - 0.000 x10(3)/[facility] Blood 02/19/2024 5:28 AM EDT 02/19/2024 5:39 AM EDT Narrative Resulting Agency Comment Spec In Lab Marti Garcia MD HEMATOLOGY ORDERABL ES [facility] [place] [address] * (ABNORMAL) Basic Metabolic Panel (non-fasting) (02/19/2024 5:28 AM EDT) Glucose 164 65 - 199 mg/dL [facility] Comment:Diabetes: >=200 mg/d L plus symptoms Blood Urea Nitrogen 27(H) 10 - 20 mg/dL [facility] Creatinine 4.81(H) 0.80 - 1.50 mg/dL [facility] Comment:result rechecked-KS Sodium 137 135 - 145 mmol/L [facility] Comment:result rechecked-KS Potassium 3.8 3.5 - 5.0 mmol/L [facility] Comment: result rechecked-KS Please note: ??Patients with WBC >100,000 may have falsely elevated Potassium levels. ??For accurate Potassium quantification in these patients send serum separator tube (gold top) for subsequent determinations. ??Contact the Clinical Chemistry Laboratory if there are any questions. Chloride 100 98 - 107 mmol/L [facility] Comment:result rechecked-KS Carbon Dioxide 23 22 - 31 mmol/L [facility] Anion Gap 14 5 - 15 mmol/L [facility] Calcium 8.8 8.5 - 10.5 mg/dL [facility] Est Glomerular Filtration Rate 13(L) >=60 mL/min/1. 73 m?? [facility] Comment: This patient's estimated [...] Renae MD CHEMISTRY ORDERABLES Performing Organization Address City/[facility]/ZIP Co de Phone Number [facility] [place] [address] * POCT Glucose (02/19/2024 4:32 AM EDT) Glucose, POC 183 65 - 199 mg/dL [facility] Comment: Supplemental ranges: <140 mg/dL before meals <180 mg/dL all other times of the day Blood 02/19/2024 4:32 AM EDT 02/19/2024 4:32 AM EDT Ari Renae MD POINT OF CARE TEST O RDERABLES Performing Organization Address [facility] Co de Phone Number [facility] [place] [address] * (ABNORMAL) POCT Glucose (02/19/2024 2:17 AM EDT) Glucose, POC 252(H) 65 - 199 mg/dL [facility] Comment: Supplemental ranges: <140 mg/dL before meals <180 mg/dL all other times of the day Blood 02/19/2024 2:17 AM EDT 02/19/2024 2:17 AM EDT Ari Renae MD POINT OF CARE TEST O RDERABLES Performing Organization Address City/[facility]/ZIP Co de Phone Number [facility] [place] [address] * (ABNORMAL) POCT Glucose (02/19/2024 12:29 AM EDT) Glucose, POC 278(H) 65 - 199 mg/dL [facility] Comment: Supplemental ranges: <140 mg/dL before meals <180 mg/dL all other times of the day Blood 02/19/2024 12:2 9 AM EDT 02/19/2024 12:29 AM EDT Ari Renae MD POINT OF CARE TEST O RDERABLES Performing Organization Address [facility]/ZIP Co de Phone Number [facility] [place] [address] * MRSA PCR Screen ([facility]) (02/18/2024 11:02 PM EDT) [facility] MRSA PCR Negative Negative [facility] MRSA (Interp) Methicillin-resist ant Staphylococcus aureus (MRSA) is NOT DETECTED The MRSA target DNA sequences (mec and SCC) were not detected within the acceptable ranges using the Xpert MRSA NxG on the GeneXpert Dx System (TRAKLOK). This suggests the absence of MRSA in the patient specimen submitted for testing. This test is cleared by the U.S. Food and Drug Administration for clinical use and its performance characteristics have been verified by the [facility] at [facility]. This result does not rule out the presence of any other organisms. Rare false negative results may occur if MRSA is present at low concentrations with much higher concentrations of other organisms including MRSE or S. aureus with an empty SCC cassette. [facility] Comment: [VERIFIED DATE]02.19.24 Verified By:Shaina Goff (Electronic Signature) Nasopharyngeal Swab 02/18/20 11:02 PM EDT 02/19/2024 1:56 PM EDT Comment:Specimen Type->Nasop haryngeal Swab Narrative Resulting Agency Comment Spec In Lab Ari Renae MD MOLECULAR ORDERABLES Performing Organization Address [facility]/ZIP Co de Phone Number [facility] [place] [address] * (ABNORMAL) POCT Glucose (02/18/2024 8:07 PM EDT) Glucose, POC 221(H) 65 - 199 mg/dL [facility] Comment: Supplemental ranges: <140 mg/dL before meals <180 mg/dL all other times of the day Blood 02/18/2024 8:07 PM EDT 02/18/2024 8:07 PM EDT Ari Renae MD POINT OF CARE TEST O RDLIEN Performing Organization Address [facility] Co de Phone Number [facility] [place] [address] * Specimen to Pathology (02/18/2024 7:12 PM EDT) AP Specimen 02/18/2024 7:12 PM EDT 02/18/2024 7:12 PM EDT Narrative [facility] - 02/18/2024 7:12 PM EDT Specimen requisition ordered. ??Separate Pathology report to follow Ari Renae MD PATHOLOGY/CYTOLOGY O RDERABLES Performing Organization Address [facility] Co de Phone Number [facility] [place] [address] * Surgical Pathology Report (02/18/2024 7:02 PM EDT) Final Diagnosis [id number] ? Location: [id number]; 0426; A The signing [...] resorptive changes (see Discussion). Electronically signed by: ?Marya CID, Shyann Rose Verified: ??02/24/2024 17:03 ??Pathologist Performed at: ??-[facility] [place]. [place]ology, [place] [address] Mastic Floor Layer: Karina Valencia MD, FCAP, ??CLIA Certificate: [id number] DISCUSSION The specimen shows areas of subperiosteal [...] Sections/Processi ng: Blocks submitted for decalcification: A4-A5. [employer] Worker sections in 5 cassettes as follows: ?A1: ??Soft tissue margin nearest to the lesion en face ?A2: ??[employer] Worker section of the lesion located at the lateral heel ?A3: ??[employer] section of the lesion at the posterior heel ?A4: ??[employer] sections of the involved calcaneus ?A5: ??[employer]er section proximal bone margin en face ??kjs 02/24/2024 5:03 PM EDT [facility] Extremity 02/18/2024 7:02 PM EDT 02/18/2024 7:02 PM EDT Extremity 02/18/2024 7:02 PM EDT 02/18/2024 7:02 PM EDT Ari M Beach MD PATHOLOGY/CYTOLOGY O RDERABLES [facility] [place] [address] * Request For 2nd Read CT Lower Extremity (02/18/2024 5:13 PM EDT) WORKSTATION ID [id number] RAD Anatomical Region Laterality Modality Hip, Leg, [...] who have questions please contact the health critical care technician that requested your imaging first. ? Narrative 02/18/2024 7:42 PM EDT EXAMINATION: REQUEST FOR 2ND READ CT LOWER EXTREMITY CLINICAL HISTORY: concern for osteo; Sending Institution [facility]; Date of exam [id number]; I believe a reinterpretation of this exam may alter care of Patient. Yes TECHNIQUE: Axial, coronal, and sagittal reconstructed images of a noncontrast CT of the left lower leg and foot performed 02/17/2024 at [facility] was submitted for reinterpretation on 02/18/2024. The outside report is available for review at time of this interpretation. COMPARISON: CT left foot 12/19/2023 performed at [facility] FINDINGS: There is a deep [...] CLINICAL HISTORY: concern for osteo; Sending Institution [facility]; Date ofexam 20240217; I believe a reinterpretation of this exam may alter care ofPatient. Yes TECHNIQUE: Axial, coronal, and sagittal reconstructed images of a noncontrast CT ofthe left lower leg and foot performed 02/17/2024 at [facility] was submitted for reinterpretation on 02/18/2024. The outsidereport is available for review at time of this interpretation. COMPARISON: CT left foot 12/19/2023 performed at [facility] FINDINGS: There is a deep [...] patients who have questions please contactthe health critical care technician that requested your imaging first. Electronically signed by: Romeo Saunders MD, [facility]([phone]), at 02/18/2024 7:42 PM Maria A Mallory APRN IMG OUTSIDE INTER PRETATION ORDERABLES * XR Foot Min 3 views Bilat (Generic) (02/18/2024 4:39 PM EDT) WORKSTATION ID [id number] RAD Anatomical Region Laterality Modality Foot Bilateral [...] who have questions please contact the health critical care technician that requested your imaging first. ? Electronically signed by: Romeo Saunders MD, [facility] ??([phone]), at 02/18/2024 4:51 PM Narrative 02/18/2024 4:51 [...] patients who have questions please contactthe health critical care technician that requested your imaging first. Electronically signed by: Romeo Saunders MD, [facility]([phone]), at 02/18/2024 4:51 PM Macario Thomas MD IMG DX ORDERABLES * MELLY, legs, multiple levels (02/18/2024 3:31 PM EDT) VB Text Report Department: Vascular Surgery Lab Patient: [id number] (GERSON BRUNER) CPT: 01315 Referring Physician: ESA MAIN ?? Phone: Indications: bilateral heel wounds, LT worse than RT, ? peripheral perfusion Diabetes mellitus: Yes Findings: Right ?Pressure (mm Hg) ??Waveform ?TBI ?? Brachial Artery ?190 ? Dorsalis Pedis (Ankle) Artery ?>240 ?[place]-Biphasic ? Posterior Tibial (Ankle) Artery ??>240 ?Monophasic [...] EDT) pH, Venous 7.39 7.32 - 7.42 [facility] [facility] PCO2, Venous 48 41 - 51 mmHg [facility] PO2, Venous 22(L) 25 - 40 mmHg [facility] Bicarbonate, Venous 28.3 mmol/L [facility] Base Excess, Venous 3.3 mmol/L [facility] Hgb Blood Gas 10.4(L) 13.7 - 16.5 g/dL [facility] Oxyhemoglobin, Venous 35.5 % [facility] Carboxyhemoglob in, Venous 6.9 % [facility] Comment: Nonsmokers: 0.5-1.5% COHB Smokers: Variable, but usually less than 10% Toxic: 20-30% COHB Lethal: Greater than 60% COHB Methemoglobin, Venous 0.2 <=1.5 % [facility] Na Whole Blood 133(L) 135 - 145 mmol/L [facility] K Whole Blood 3.7 3.5 - 5.0 mmol/L [facility] Comment: Please note: Patients with WBC >100,000 may have falsely elevated Potassium levels. Contact the Clinical Chemistry Laboratory if there are any questions. ICa Whole Blood 1.17 1.15 - 1.33 mmol/L [facility] Comment: Note: ??Total bilirubin higher than 20 mg/dL may lead to falsely low ionized calcium. CL Whole Blood 95(L) 98 - 107 mmol/L [facility] Gluc Whole Bld 207(H) 65 - 199 mg/dL [facility] Comment:Diabetes: >=200 mg/d L plus symptoms Lactate WB 1.0 0.5 - 2.2 mmol/L [facility] Blood Gas Source Venous [facility] Blood 02/18/2024 3:16 PM EDT 02/18/2024 3:[address] Rei Gasca MD POINT OF CARE TEST O RDERABLES [facility] [place] [address] * Type and screen (MC/CGP/CHASE) (02/18/2024 3:07 PM EDT) ABORH Type A POSITIVE [facility] Patient BB History Found [facility] Expires at [id number] on: 02-21-2024 [facility] Ab Screen Interp Negative [facility] Blood 02/18/2024 3:07 PM EDT 02/18/2024 3:00 PM EDT Narrative [facility] - 02/18/2024 3:00 PM EDT This Type and Screen result is only valid at the [facility] Resulting Agency Comment Spec In Lab Macario Thomas MD BLOOD BANK LAB ORDER FRANSISCO [facility] [place] [address] * ABORH Recheck Status (02/18/2024 3:00 PM EDT) AB[facility] Type Recheck Completed [facility] Blood 02/18/2024 3:00 PM EDT 02/18/2024 3:32 PM EDT Narrative Resulting Agency Comment Spec In Lab Thee PALMER BLOOD BANK LAB ORDER FRANSISCO [facility] [place] [address] * Blood culture (02/18/2024 3:00 PM EDT) Pathologist [facility] Blood Culture No growth at 5 days. [facility] Blood 02/18/2024 3:00 PM EDT 02/18/2024 4:05 PM EDT Comment:R ac Narrative Resulting Agency Comment Spec In Lab Maria A Mallory APRN MICROBIOLOGY - BL OOD ORDERABLES [facility] [place] [address] * EKG 12 Lead (02/18/2024 2:42 PM EDT) Ventricular rate 73 BPM MUSE SYSTEM Atrial Rate 73 BPM MUSE SYSTEM P-R Interval 130 ms MUSE SYSTEM QRS Duration 90 ms MUSE SYSTEM Q-T Interval 424 ms MUSE SYSTEM QTC Calculated (Bezet) 467 ms MUSE SYSTEM Calculated P [place] 41 degrees MUSE SYSTEM Calculated R [place] 31 degrees MUSE SYSTEM Calculated T [place] 49 degrees MUSE SYSTEM INTERPRETATION Normal sinus rhythm Normal ECG When compared with ECG of 01-SEP-2018 14:08, Nonspecific T wave abnormality now evident in Lateral leads Confirmed by MD Gracia Katharine (Yousif) on 02/21/2024 6:28:52 AM MUSE SYSTEM 02/18/2024 2:42 PM EDT 02/21/2024 6:28 AM EDT Maria A Mallory APRN ECG ORDERABLES Performing Organization Address City/[facility]/ZIP Co de Phone Number MUSE SYSTEM * (ABNORMAL) Sedimentation rate (02/18/2024 2:15 PM EDT) [facility] Sedimentation Rate Automated 108(H) 2 - 37 mm/hr [facility] Comment: Effective October 04, 2019 new capillary photometric technology has resulted in a change in reference ranges. It is recommended that each ESR result be reviewed with its own age appropriate reference range. Blood Venous Draw / Unknown 02/18/2024 2:15 PM EDT 02/18/2024 2:37 PM EDT Narrative Resulting Agency Comment Spec In Lab Thee PALMER HEMATOLOGY ORDERABLE S [facility] [place] [address] * (ABNORMAL) CRP, acute inflammation (02/18/2024 2:15 PM EDT) [facility] C-Reactive Protein 148.6(H) <=4.9 mg/L [facility] Blood Venous Draw / Unknown 02/18/2024 2:15 PM EDT 02/18/2024 2:44 PM EDT Narrative Resulting Agency Comment Spec In Lab Thee PALMER CHEMISTRY ORDERABLES Performing Organization Address City/[facility]/ZIP Co de Phone Number [facility] [place] [address] * Gold Tube HOLD (02/18/2024 2:15 PM EDT) Pathologist [facility] Gold Hold Sample in lab. [facility] Blood Venous Draw / Unknown 02/18/2024 2:15 PM EDT 02/18/2024 2:37 PM EDT Maria A Mallory APRN CHEMISTRY ORDERAB LES Performing Organization Address City/[facility]/ZIP Co de Phone Number [facility] [place] [address] * (ABNORMAL) Differential, Automated (02/18/2024 2:15 PM EDT) [facility] Neutrophil % 76.1 % [facility] Neutrophil Absolute 10.53(H) 1.70 - 6.10 x10(3)/mc L [facility] Lymph % 11.7 % [facility] Lymphocytes Abs 1.6 0.9 - 3.2 x10(3)/mc L [facility] Monocyte % 9.4 % [facility] Monocyte Abs 1.3(H) 0.3 - 0.9 x10(3)/mc L [facility] Eos % 2.0 % [facility] Eosinophils Abs 0.3 0.0 - 0.4 x10(3)/mc L [facility] Basophil % 0.4 % [facility] Baso Absolute 0.0 0.0 - 0.1 x10(3)/mc L [facility] Immature Gran % 0.40 % [facility] Comment: Immature granulocytes(IG's)percentage and absolute count will include metamyelocytes, myelocytes, and promyelocytes. Blood smears from CBCs yielding IG's will be scanned manually for concordance. If this scan disagrees with the automated IG or if promyelocytes are noted, a manual differential will be performed. Immature Gran Absolute 0.06(H) 0.00 - 0.04 x10(3)/mc L [facility] Blood 02/18/2024 2:15 PM EDT 02/18/2024 2:37 PM EDT Narrative Resulting Agency Comment Spec In Lab Maria A Mallory APRN HEMATOLOGY ORDERA BLES [facility] [place] [address] * (ABNORMAL) Hemogram (02/18/2024 2:15 PM EDT) White Blood Cell 13.8(H) 4.0 - 9.5 x10(3)/mc L [facility] Red Blood Cell 2.52(L) 4.58 - 5.54 x10(6)/mc L [facility] Hemoglobin 7.2(L) 13.7 - 16.5 g/dL [facility] Hematocrit 22.1(L) 40.5 - 48.5 % [facility] Mean Cell Volume 87.7 82.9 - 93.1 fL [facility] Mean Cell Hemoglobin 28.6 27.5 - 32.1 pg [facility] Mean Cell Hemoglobin Concentration 32.6 32.0 - 35.7 g/dL [facility] Platelet 440(H) 145 - 357 x10(3)/mc L [facility] RDW Standard Deviation 44.5 36.0 - 45.0 fL [facility] RDW coefficient of variation 13.8 11.4 - 13.8 % [facility] Mean Platelet Volume 10.9 7.6 - 12.9 fL [facility] NRBC% auto 0.0 % [facility] NRBC Absolute 0.000 0.000 - 0.000 x10(3)/mc L [facility] Blood 02/18/2024 2:15 PM EDT 02/18/2024 2:37 PM EDT Narrative Resulting Agency Comment Spec In Lab Maria A Mallory APRN HEMATOLOGY ORDERA BLES Performing Organization Address [facility] Co de Phone Number [facility] [place] [address] * APTT (02/18/2024 2:15 PM EDT) Partial Thromboplastin Time 32 25 - 37 sec [facility] Comment: The PTT is NOT appropriate for heparin monitoring. Use the Anti-Xa level for heparin monitoring (HEP UFH) or LMWH monitoring (HEP LMW). A PTT less than 37 seconds generally indicates adequate hemostasis. Blood 02/18/2024 2:15 PM EDT 02/18/2024 2:37 PM EDT Narrative Resulting Agency Comment Spec In Lab Maria A Mallory APRN HEMATOLOGY ORDERA BLES Performing Organization Address [facility] de Phone Number [facility] [place] [address] * (ABNORMAL) Prothrombin Time (02/18/2024 2:15 PM EDT) Prothrombin Time 13.2(H) 9.4 - 12.5 sec [facility] International Normalization Ratio 1.2 [facility] Comment: An INR <2.0 indicates adequate [...] Agency Comment Spec In Lab Maria A C [place] DUNN HEMATOLOGY ORDERA BLES [facility] [place] [address] * Blood culture (02/18/2024 2:15 PM EDT) Blood Culture No growth at 5 days. [facility] Blood ANTECUBITAL REGION STRUCTURE / Unknown 02/18/2024 2:15 PM EDT 02/18/2024 2:46 PM EDT Narrative Resulting Agency Comment Spec In Lab Maria A Payne [place] DUNN MICROBIOLOGY - BL OOD ORDERABLES Performing Organization Address City/[facility]/ZIP Co de Phone Number [facility] [place] [address] * (ABNORMAL) Basic Metabolic Panel (non-fasting) (02/18/2024 2:15 PM EDT) Glucose 211(H) 65 - 199 mg/dL [facility] Comment:Diabetes: >=200 mg/d L plus symptoms Blood Urea Nitrogen 18 10 - 20 mg/dL [facility] Creatinine 3.48(H) 0.80 - 1.50 mg/dL [facility] Sodium 135 135 - 145 mmol/L [facility] Potassium 3.7 3.5 - 5.0 mmol/L [facility] Comment: Please note: ??Patients with WBC >100,000 may have falsely elevated Potassium levels. ??For accurate Potassium quantification in these patients send serum separator tube (gold top) for subsequent determinations. ??Contact the Clinical Chemistry Laboratory if there are any questions. Chloride 97(L) 98 - 107 mmol/L [facility] Carbon Dioxide 27 22 - 31 mmol/L [facility] Anion Gap 11 5 - 15 mmol/L [facility] Calcium 8.6 8.5 - 10.5 mg/dL [facility] Est Glomerular Filtration Rate 20(L) >=60 mL/min/1. 73 m?? [facility] Comment: This patient's estimated [...] Comment Spec In Lab Maria A Mallory GROUNDSMAN CHEMISTRY ORDERAB LES [facility] [place] [address] documented in this encounter Visit Diagnoses Not [...] fluid balance at end of treatment, contact ., Dialysis (Intra-Procedure) vitamin B Complex-vitamin C-folic Acid [...] Ortega RN) 1633 (Given - Provider: Kurt rOtega RN) calcium carbonate (TUMS) chewable tablet 500 [...] Zita Michelle RN)1439 (Given - Provider: Goldie Mendzoa RN)2109 (Given - Provider: Zita Michelle RN) [...] DINNER, First dose (after last modification) on 02/26/24 at 1700, Until Discontinued, Hold dose if [...] BG 69)1600 (Not Given - Provider: Goldie Mendzoa RN - Reason: Order parameters not met)1999 (Not Given - Provider: Zita Michelle RN [...] HOURS, First dose (after last modification) on Wed02/19/24 at 1723, Until Discontinued, Administer over 4 [...] Michelle RN) 1216 (Given - Provider: Smitha Layne RN) senna-docusate (Pericolace) 8.6-50 mg per tablet 2 [...] Routine 1524 (Given - Provider: Kurt Ortega RN)210 (Given - Provider: Zita Michelle, VIDYA) 0816 (Given - Provider: Kurt Ortega RN)2133 (Given - Provider: Zita Michelle RN) 1219 (Given - Provider: Smitha Layne, VIDYA) [...] 2042, Until Wed02/25/24 at 1132, Heartburn, Routine 2131 (Given - Provider: Zita Michelle, VIDYA) dextrose [...] Routine 0517 (See Alternative - Provider: Zita Michelle, VIDYA)0936 (See Alternative - Provider: Mirna Blake LPN)1258 (See Alternative - Provider: Kurt Ortega, RN)1837 (See Alternative - Provider: Kurt Ortega, RN)2356 (See Alternative - Provider: Zita Michelle, VIDYA) 0402 (See Alternative - Provider: Zita Michelle RN)0811 (See Alternative - Provider: Kurt Ortega, RN)1158 (See Alternative - Provider: Kurt Ortega, RN)2337 (See Alternative - Provider: Zita Michelle [...] Routine documented in this encounter Care Teams Special Education Teacher Relationship Specialty Start Date End Date Ken Greer MD PCP - General Family Medicine 12/30/23 05/15/24 documented as of this encounter
--- OUTSIDE RECORDS SUMMARY | 2024-12-05 12:40 | XMS_ITS | Encounter Summary ---
Author Organization [facility] Address [facility] [place] [address] Care Team Providers Care Handbag Frames Inspector Name Role Phone Lauri Barbosa DNP Primary Care Provider [phone] Reason for Visit * Reason Onset Date Comments TeleHealth 07/17/2020 Encounter Details Date Type Department Care Team (Late st Contact Info) Description 07/17/2020 [place] [address] Jossy Sen APRN [facility] [place] [address] TeleHealth Social History Tobacco Use Types Packs/Day Years [...] encounter Miscellaneous Notes * Telephone Encounter - Melva Cordova RN - 07/17/2020 3:09 PM EDT Unable to reach this patient by phone to review medications and allergies prior to upcoming tele-appointment scheduled with Neurology provider. No message left. documented in this encounter Plan of Treatment Not on file documented as of this encounter Visit Diagnoses Not on filedocumented in this encounter Care Teams Handbag Frames Inspector Relationship Specialty Start Date End Date Lauri Barbosa, [facility] [address] [place] [address] PCP - General Family Medicine 02/06/19 08/09/22 documented as of this encounter
--- OUTSIDE RECORDS SUMMARY | 2024-12-05 12:40 | XMS_ITS | Encounter Summary ---
Author Organization [facility] [place] [address] Care Team Providers Care Optoelectronic Technician Name Role Phone Ken Greer MD Primary Care Provider [phone] Encounter Details Date Type Department Care Team (Late st Contact Info) Description 02/18/2024 5:20 PM EDT Ancillary Procedure Radiology Library at [facility] [place] [address] Social History Tobacco Use Types Packs/Day Years Used Date Smoking Tobacco: Light Smoker Cigarettes Last attempted t o quit: 12/26/2018 Smokeless Tobacco: Never Comments:smoking a few a day Alcohol Use Standard Drinks/Week Comments No 0 (1 standard drink = 0.6 oz pur e alcohol) [facility] Inpatient Questions Answer Date Recorded Does Anyone [...] Diagnosis Comments REQUEST FOR 2ND READ CT LOWER EXTREMITY STAT 02/18/2024 5:13 PM EDT documented in this encounter Results * Request For 2nd Read CT Lower Extremity (02/18/2024 5:13 PM EDT) Pickup Services WORKSTATION ID [id number] [facility] Anatomical Region Laterality Modality Hip, Leg, Knee, [...] have questions please contact the health career specialist that requested your imaging first. ? Electronically signed by: Romeo Saunders MD, [facility] ??([phone]), at 02/18/2024 7:42 PM Narrative 02/18/2024 7:42 PM EDT EXAMINATION: REQUEST FOR 2ND READ CT LOWER EXTREMITY CLINICAL HISTORY: concern for osteo; Sending Institution [facility]; Date of exam 20240217; I believe a reinterpretation of this exam may alter care of Patient. Yes TECHNIQUE: Axial, coronal, and sagittal reconstructed images of a noncontrast CT of the left lower leg and foot performed 02/17/[address] [facility] was submitted for reinterpretation on 02/18/2024. The outside report is available for review at time of this interpretation. COMPARISON: CT left foot 12/19/2023 performed at [facility] FINDINGS: There is a deep [...] HISTORY: concern for osteo; Sending Institution [facility]; Date ofexam 20240217; I believe a reinterpretation of this exam may alter care ofPatient. Yes TECHNIQUE: Axial, coronal, and sagittal reconstructed images of a noncontrast CT ofthe left lower leg and foot performed 02/17/2024 at [facility] was submitted for reinterpretation on 02/18/2024. The outsidereport is available for review at time of this interpretation. COMPARISON: CT left foot 12/19/2023 performed at [facility] FINDINGS: There is a [...] who have questions please contactthe health career specialist that requested your imaging first. Electronically signed by: Romeo Saunders MD, [facility]([phone]), at 02/18/2024 7:42 PM Maria A Mallory APRN IMG OUTSIDE INTER PRETATION ORDERABLES documented in this encounter Visit Diagnoses Not on filedocumented in this encounter Care Teams Optoelectronic Technician Relationship Specialty Start Date End Date Ken Greer MD PCP - General Family Medicine 12/30/23 05/15/24 documented as of this encounter
--- OUTSIDE RECORDS SUMMARY | 2024-12-05 12:40 | XMS_ITS | Encounter Summary ---
Author Organization [facility] Address [facility] [place] [address] Care Team Providers Care Business Applications Developer Name Role Phone Ken Greer MD Primary Care Provider [phone] Encounter Details Date Type Department Care Team (Late st Contact Info) Description 02/17/2024 10:00 PM EDT Ancillary Procedure Radiology Library at [facility] [place] [address] Rachna Santoro PA [address] [place], [place] [address] Social History Tobacco Use Types Packs/Day Years [...] Diagnosis Comments FILM LIBRARY STORAGE ONLY CT LOWER EXTREMITY Routine 02/17/2024 9:56 PM EDT documented in this encounter Results * Film Library- Storage Only CT Lower Extremity (02/17/2024 9:56 PM EDT) Narrative [facility] - 02/17/2024 9:56 PM EDT This exam is auto-finalizing. It's purpose is for storage only. Rachna PALMER IMG FILM LIBRARY ORD ERABLES [facility] [place], [place] documented in this encounter Visit Diagnoses Not on filedocumented in this encounter Care Teams Business Applications Developer Relationship Specialty Start Date End Date Ken Greer MD PCP - General Family Medicine 12/30/23 05/15/24 documented as of this encounter
--- OUTSIDE RECORDS SUMMARY | 2024-12-05 12:40 | XMS_ITS | Encounter Summary ---
Author Organization [facility] Address [facility] [place] [address] Care Team Providers Care Rn Sexual Assault Name Role Phone Lauri Barbosa DNP Primary Care Provider [phone] Encounter Details Date Type Department Care Team (Late st Contact Info) Description 08/16/2020 Orders Only [place] [address] Agustin Espinosa MD [facility] [place] [address] ESRD (end stage renal disease) (Primary Dx) Social History Tobacco Use Types [...] Visit Diagnoses Diagnosis ESRD (end stage renal disease)- Primary End stage renal disease documented in this encounter Care Teams Rn Sexual Assault Relationship Specialty Start Date End Date Lauri Barbosa DNP [address] [place] [address] PCP - General Family Medicine 02/06/19 08/09/22 documented as of this encounter
--- OUTSIDE RECORDS SUMMARY | 2024-12-05 12:40 | XMS_ITS | Encounter Summary ---
Author Organization [facility] [place] [address] Care Team Providers Care Program Director Name Role Phone Lauri Barbosa DNP Primary Care Provider [phone] Reason for Visit * Reason Comments Medication Refill Encounter Details Date Type Department Care Team (Late st Contact Info) Description 03/21/2020 [place] [address] Imani Kim MD Social History Tobacco Use Types Packs/Day Years [...] on filedocumented in this encounter Care Teams Program Director Relationship Specialty Start Date End Date Lauri Barbosa DNP [address] [place] [address] PCP - General Family Medicine 02/06/19 08/09/22 documented as of this encounter
--- OUTSIDE RECORDS SUMMARY | 2024-12-05 12:40 | XMS_ITS | Encounter Summary ---
[place] [address] Care Team Providers Care Middle [employer] Baseball Coach Name Role Phone Ken Greer MD Primary Care Provider [phone] Reason for Referral * Consultation (Routine) - Closed Specialty Diagnoses / Procedures Referred By Nader gardiner Referred To Contact Endocrinology Diagnoses Type 2 diabetes mellitus with chronic kidney disease, with long-term current use of insulin, unspecified CKD stage ESRD (end stage renal disease) Sourav Kilgore PA [address] [place] [phone] [facility] [address] [place] [phone] Referral ID Status Reason Start Date Expiration Date V isits Requested Visits Authorized [id number] Closed Consult, Test & Treat PCP Updated and/or Approved 12/30/2023 12/29/2024 6 6 Encounter Details Date Type Department Care Team (Late st Contact Info) Description 12/30/2023 Transcribe Orders eDH Incoming Referrals [phone] Sourav Kilgore PA [address] [place] [phone] Type 2 diabetes mellitus with chronic kidney disease, with long-term current use of insulin, unspecified CKD stage; ESRD (end stage renal disease) Social History [...] Name Type Priority Associated Diagnoses Order Schedule Referral to Endocrinology Outpatient Referral Routine Type 2 diabetes mellitus with chronic kidney disease, with long-term current use of insulin, unspecified CKD stage ESRD (end stage renal disease) Ordered: 12/30/2023 documented as of this encounter Visit Diagnoses Diagnosis Type 2 diabetes mellitus with chronic kidney disease, with long-term current use of insulin, unspecified CKD stage ESRD (end stage renal disease) End stage renal disease documented in this encounter Care Teams Middle [employer] Baseball Coach Relationship Specialty Start Date End Date Ken Greer MD PCP - General Family Medicine 12/30/23 05/15/24 documented as of this encounter
--- OUTSIDE RECORDS SUMMARY | 2024-12-05 12:40 | XMS_ITS | Encounter Summary ---
Author Organization [facility] [place] [address] Care Team Providers Care Sash Repairer Name Role Phone Raul Karine Lauri CHUN Primary Care Provider [phone] Encounter Details Date Type Department Care Team (Latest Contact Info) Description 07/19/2020 4:00 PM EDT TH Visit (TeleHealth) [place] [address] Jossy Sen APRN [facility] [place] [address] Cigarette smoker; Hyperlipidemia, unspecified hyperlipidemia type; Essential hypertension Social History Tobacco Use Types Packs/Day Years [...] as of this encounter Progress Notes * Jossy Sne APRN - 07/19/2020 4:00 PM EDT [facility] Disease [facility] Stroke Program Department [place] [address] t: [phone] / f: [phone] Patient ID: Gerson Bruner is a 54 y.o. year old male followed in the vascular neurology/stroke clinic for TIA (right sided weakness and numbness - 02/2019) likely secondary to small vessel disease. Patient Active Problem List Diagnosis ??? TIA (transient ischemic attack) ??? Right sided numbness ??? CKD (chronic kidney disease) stage 5, GFR less than 15 ml/min ??? Secondary hyperparathyroidism ??? Hyperglycemia ??? Pre-transplant evaluation for CKD (chronic kidney disease) ??? Essential hypertension ??? Proteinuria ??? Anemia of chronic renal failure, stage 4 (severe) ??? Essential hypertension with goal blood pressure less than 130/80 ??? Diabetes mellitus ??? Hyperlipidemia ??? Herniation of lumbar intervertebral disc with radiculopathy L4-5 left ??? Type II or unspecified type diabetes mellitus with neurological manifestations, uncontrolled(250.62) ??? Leg cramps ??? Cigarette smoker ??? Unspecified hearing loss Subjective: Xander attends telephone visit. He actually forgot this was a televisit and drove to [place] but is not on campus at time of this visit so we completed it as scheduled with phone. He reports some minor persistent trouble with his right hand/finger fine motor movements. Notes numbness in bilateral feetand hands, thinks this is neuropathy related. He denies any repeat neurologic events since our last visit concerning for TIA, stroke, seizure of ICH. and no emergency room visits or hospital admission. He reports good medication compliance. No further blood in stool. He continues smoking cigarettes (3/4 pack per day) and marijuana regularly (few times a day). Has forgetfulness but doesn't think its getting worse. Diabetes: checking blood sugars a couple times a day, highest 360 and lowest noted 50.When he is low he feels shaky and then will drink some juice. He liked the [employer] 14 day device and using his phone, but has been unable to get a refill on this device. He is going to check with pharmacy and his PCP. Blood Pressure: checked at dialysis three days a week. Reports this has been normal. Review of systems: Constitutional: No fevers or chills, no dizziness Eyes: No vision changes, no diplopia, no blurry vision ENT: No rhinorrhea or pharyngitis, no meningismus CV: No chest pain or palpitations Resp: No cough, no shortness of breath GI: No nausea, vomiting, diarrhea or constipation : No dysuria, no incontinence Heme: no active bleeding or bruising Endo: + diabetes, no thyroid disease Neuro: Weight & appetite: stable Swallowing & speech: no trouble Sleep: good Musculoskeletal (Strength, cramping, or fasciculations): +neuropathy bilateral hands and feet Psych/Cognitive: Denies depression [x] Review of systems otherwise negative Past Social Hx: Current Smoker ETOH: None Drugs: +marijuana Resides: lives w/ On disability for his CKD Meds: Outpatient Encounter Medications as of 07/19/2020 Medication Sig Dispense Refill ??? atorvastatin (LIPITOR) 40 mg Tablet Take 1 tablet by mouth every evening. 90 tablet 3 ??? aspirin 81 mg Tablet, Chewable Take 81 mg by mouth daily. 30 tablet 3 ??? FREESTYLE DERICK 14 DAY READER Misc Use to continuously monitor blood glucose. Scan at least 5 times/day. Dx: 1 each 1 ??? flash glucose sensor (FREESTYLE DERICK 14 DAY SENSOR) Kit q14 days as instructed. Indication= E11.21 6 kit 3 ??? HUMALOG KWIKPEN 100 unit/mL Insulin Pen Inject subcutaneously 3 times daily. Sliding Scale 0 ??? lidocaine-prilocaine (EMLA) Cream Apply 1 Application topically as needed. 3 ??? sevelamer carbonate (RENVELA) 800 mg Tablet Take 1 tablet by mouth 3 times daily (with meals). (Patient taking differently: Take 800 mg by mouth 2 times daily (with meals).) 180 tablet 3 ??? labetalol (NORMODYNE) 100 mg Tablet Take 100 mg by mouth 2 times daily. 0 ??? furosemide (LASIX) 80 mg Tablet Take 1 tablet by mouth 2 times daily. (Patient taking differently: Take 40 mg by mouth 2 times daily.) 180 tablet 3 ??? blood sugar diagnostic strips (Box JumpTOUCH ULTRA TEST) Strip 1 each by Other route 2 times daily (before meals). Dx code 250.02 uses insulin 100 each 11 ??? insulin detemir U-100 (LEVEMIR) Insulin Pen Inject 55 Units subcutaneously nightly. 10 mL 12 ??? lancets Misc Inject 1 each subcutaneously 2 times daily (before meals). Dx code 250.02 uses insulin 100 each 11 ??? hydrALAZINE (APRESOLINE) 25 mg Tablet Take 1 tablet by mouth 3 times daily. 90 tablet 3 ??? ranitidine (ZANTAC) 150 mg Tablet Take 150 mg by mouth 2 times daily. 0 ??? nortriptyline (PAMELOR) 25 mg Capsule Take 25 mg by mouth nightly. 0 ??? amLODIPine (NORVASC) 10 mg Tablet Take 1 tablet by mouth daily. 90 tablet 3 ??? pregabalin (LYRICA) 100 mg Capsule Take 100 mg by mouth 2 times daily. ??? multivitamin (THERAGRAN) Tablet Take 1 tablet by mouth daily. ??? Insulin Adolphus, Disposable, 31 X 5/16 Needle Inject 1 each subcutaneously 2 times daily (before meals). 100 each 11 No facility-administered encounter medications on file as of 07/19/2020. Objective: There were no vitals taken for this visit. NO EXAM PERFORMED Assessment/Plan: Gerson Bruner is a 54 y.o. year old male with PMHx of diabetes (insulin dependent, with nephropathy), hypertension, CKD stage V (secondary to diabetic nephropathy-currently on dialysis) and anemia followed in the neurology clinic for small vessel disease related TIA (03/07/2019). Workup at that time revealed no major vessel stenosis in head or neck. MRI demonstrated??no acute infarct but evidenceof white matter disease.??TTE revealed??normal EF 69%, no evidence of PFO, normal LA. Pt remains neurologically stable with no repeat events. He reports a normal exam and no concerns with his blood pressure. He is being followed by banquet prep cook closely given the dialysis three times aweek. Gerson should continue on aspirin and statin for secondary stroke prevention going forward and most importantly smoking cessation and improved control of his DMII. He can work on these with hisP and return to neurology clinic if any new events/concerns in future. #TIA #Small vessel disease -Continue aspirin 81mg daily -Continue atorvastatin 40mg daily -Endocrinology for uncontrolled and worsening DMII -Mobility: no rehab needs -Fall risk: low -Weight/appetite:stable -Resp/sleep: good -Mood: good -Neurocognitive symptoms: no cognitive impairments - Discussion held regarding current smoking status and the health risks associated with smoking. ?? Patient was assessed for readiness for change. Currently not ready to quit. ?? Barriers identified for change: he loves cigarettes ?? Suggested treatment (s) included: supplying patient with the national smoking 'quit line' number(1-800-QUIT NOW) and NRT (patches, gum, lozenges) ?? Patient understands suggested treatment and personal plan. ?? A total of 3 minutes were spent counseling the patient. Patient understands and is in agreement with our plan. Return for followup PRN. Patient verbally consents to this telephone visit and understands that this visit may be billed, similar to a clinic office visit. I provided care to the patient today via telephone call, 20 minutes of this 30 minute telephone visit was spent in discussion with patient on above. Please note that with a telehealth encounter a physical exam is not possible, and is an inherent limitation with this form of care delivery. Based on all considered variables it was felt that the benefits of a telehealth encounter would outweigh the risks of not being able to repeat the neurological examination. Based on the information provided by the patient today there is nothing to suspect a new focal neurological deficit. Jossy Sen APRN #[id number] [place] [address] documented in this encounter Plan of Treatment Not on file documented as of this encounter Visit Diagnoses Diagnosis Cigarette smoker Tobacco use disorder Hyperlipidemia, unspecified hyperlipidemia type Essential hypertension Unspecified essential hypertension documented in this encounter Care Teams Sash Repairer Relationship Specialty Start Date End Date Lauri Barbosa DNP [address] [place] [address] PCP - General Family Medicine 02/06/19 08/09/22 documented as of this encounter
--- OUTSIDE RECORDS SUMMARY | 2024-12-05 12:40 | XMS_ITS | Encounter Summary ---
Author Organization [facility] Address [facility] [place] [address] Care Team Providers Care [employer] Guidance Counselor Name Role Phone Candace Maurice APRN Primary Care Provider [phone] Encounter Details Date Type Department Care Team (Late st Contact Info) Description 12/19/2023 11:55 AM EST Ancillary Procedure Radiology Library at [facility] [place] [address] Romeo Quiroga MD [facility] [place] [address] Social History Tobacco Use Types Packs/Day Years [...] LIBRARY STORAGE ONLY CT LOWER EXTREMITY Routine 12/19/2023 11:51 AM EST documented in this encounter Results * Film Library- Storage Only CT Lower Extremity (12/19/2023 11:51 AM EST) Narrative [facility] - 12/19/2023 11:51 AM EST This exam is auto-finalizing. It's purpose is for storage only. Romeo Quiroga MD IMG FILM LIBRARY ORD ERABLES DH RAD [place], [place] documented in this encounter Visit Diagnoses Not on filedocumented in this encounter Care Teams [employer] Guidance Counselor Relationship Specialty Start Date End Date Candace Maurice APRN [facility] [place] [address] PCP - General Family Medicine 08/10/22 12/29/23 documented as of this encounter
--- OUTSIDE RECORDS SUMMARY | 2024-12-05 12:41 | XMS_ITS | Encounter Summary ---
Author Organization Formerly [facility], [facility] Address [facility] [place] [address] Care Team Providers Care Application Integration Architect Name Role Phone Lauri Barbosa DNP Primary Care Provider [phone] Reason for Referral * Physical Therapy (Routine) - Specialty Diagnoses / Procedures Referred By Nader gardiner Referred To Contact Diagnoses At risk for falls Impaired functional mobility, balance, gait, and endurance Jossy Sen APRN [facility] [place] [address] Referral ID Status Reason Start Date Expiration Date V isits Requested Visits Authorized [id number] Evaluate and Treat 04/19/2019 10/16/2019 12 12 Encounter Details Date Type Department Care Team (Late st Contact Info) Description 04/19/2019 10:00 AM EDT [place] [address] Jossy Sen APRN [facility] [place] [place] [address] Cigarette smoker; Type 2 diabetes mellitus with complication, without long-term current use of insulin; TIA (transient ischemic attack); At risk for falls; Impaired functional mobility, balance, gait, and endurance Social History Tobacco Use Types Packs/Day Years Used Date Smoking Tobacco: Former Cigarettes Q uit: 12/26/2018 Smokeless Tobacco: Never Alcohol Use Standard Drinks/Week Comments No 0 (1 standard drink = 0.6 oz pur e alcohol) Sex and Gender Information Value Date Recorded Sex Assigned at Not on file Gender Identity Not on file Sexual Orientation Not on file documented as of this encounter Last Filed Vital Signs Vital Sign Reading Time Taken Comments Blood Pressure 160/77 04/19/2019 9:51 AM EDT Pulse 63 04/19/2019 9:51 AM EDT Temperature - - Respiratory Rate - - Oxygen Saturation - - Inhaled Oxygen Concentration - - Weight 92.1 kg (203 lb) 04/19/2019 9:51 AM EDT W ith shoes Height 177.8 cm (5' 10) 04/19/2019 9:51 AM EDT Reported Body Mass Index 29.13 04/19/2019 9:51 AM EDT documented in this encounter Progress Notes * Jossy Sen, HAND MIXER - 04/19/2019 10:00 AM EDT Cerebrovascular Disease and Stroke Program Department of Neurology [place] [id number] t: [phone] / f: [phone] Reason For Appointment: Post-hospital discharge Gerson Bruner is a 53 y.o. 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 Per Chart Review: Gerson Bruner is a 53 y.o. male who was admitted to the neurology service for further evaluation of question of L posterior internal capsule infarct seen on CTH. Neurological examination on admission was pertinent for decreased sensation over right arm. Patient was monitored with frequent checks of vitals and neurological status. Telemetry monitoring showed NSR. Permissive HTN was allowed, with labetalol administered prn for SBP >220. MRI demonstrated no acute infarct. Vascular imaging showed no major vessel stenosis. TTE revealed normal EF 69%, no evidence of PFO See detailed reports as below. Most likely etiology of stroke was small vessel related. ?? # Right sided numbness Pt was not consistently on ASA prior to this event, and was resumed on ASA 81mg QD. 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 DAPT for vessel disease was considered, but given his renal state, he is at higher risk of platelet dysfunction. He was therefore discharged on ASA monotherapy and atorvastatin 40. Should he have symptoms again, will plan to start plavix a well. ?? # ESRD Nephrology was consulted this admission for ESRD, pt continued on his regular HD schedule. Interval History: Xander comes to visit today with his Melissa. They let me know there were in [facility] last night for a few days of transient dizziness, vision impairment, nausea and gait imbalance. They symptoms started Wednesday when he was walking around his property. He notes when trying to watch TV the actual TV seemed to be constantly moving and he had a hard time concentrating. Denies double vision. Wednesday night he went to bed and he felt better on Wednesday. He went to dialysis and notes BP in 240's, which is unusual for him. Wednesday night or Wednesday morning the dizziness and gait imbalance seemed to return. He slept most of the day yesterday and when his got home they decided to bring him into local ED for evaluation. She said his eyes were moving abnormally, but denies any focal weakness or language trouble. Of note, Xander ran out of his aspirin about 10 days ago and just stopped taking it all together. He restarted daily aspirin last night and today. typically helps with medications, but she let him do his meds more recently so wasn't aware he wasn't taking the aspirin. Per pt and report, his BP was elevated to 180's when he went in last night, they did a CT scanand some blood work and sent him home. He doesn't know results of any of his tests and we do not have these records here to view. Otherwise, reports good sleep at night. Good appetite. He has to cancel his endocrinology appt today because it is on his dialysis day and cannot go to it. States his mood is good though notes worsening short temper. Denies depression. States he would never take an antidepressant because he sees what it does to people and not for the good. notes worsening memory problems. He has quit smoking cigarettes and is not using any NRT at this time. He continues to smoke marijuana daily which he has been doing for decades. Stroke:MMAS-4 04/19/2019 MMAS-4 Score 4 (High Adherence) Do you ever forget to take your medication? No Are you careless at times about taking your medicine? No Sometimes, if you feel worse when you take the medicine, do you stop taking it? No When you feel better do you sometimes stop taking your medicine? No Stroke:PROMIS-10 04/19/2019 [id number] Health Score 39.8 [id number] Health Score 41.1 Health in general Fair Quality of life Good Physical health Fair Mental health Good Satisfaction with social activities Good Ability to carry out physical activities Mostly Rate of pain 1 Rate of fatigue Severe Ability to carry out social activities Fair Bothered by emotional problems Often Stroke:SIS-16 04/19/2019 SIS-16 Score 56 a. Dress the top part of your body? A little difficult b. Bathe yourself? A little difficult c. Get to the toilet on time? Not difficult at all d. Control your bladder (not have an accident)? Not difficult at all e. Control your bowels (not have an accident)? Not difficult at all f. Standing without losing balance? Somewhat difficult g. Go shopping? A little difficult h. Do heavy watch assembler (e.g., vaccum, laundry or yard work?) Very difficult i. Stay sitting without losing your balance? A little difficult j. Walk without losing your balance? Very difficult k. Move from a bed to a chair? Not difficult at all l. Walk fast? Somewhat difficult m. Climb one flight of stairs? Very difficult n. Walk one block? Could not do at all o. Get in and out of a car? Somewhat difficult p. Carry heavy objects (e.g., bag of groceries) with your affected hand? A little difficult Stroke:Cognitive Screening 04/19/2019 Patient Cognitive Screening Yes Stroke:GAD2+7 04/19/2019 GAD2 Subscore 3 (Full DAVE-7 indicated) GAD7 Total Scores 7 (Mild Anxiety) Nervous, anxious Several days Unable to stop worrying More than half the days Worrying about different things Several days Trouble relaxing Several days Restless More than half the days No flowsheet data found. No flowsheet data found. Past Medical History: Patient Active Problem List Diagnosis Code ??? Type II or unspecified type diabetes mellitus with neurological manifestations, uncontrolled(250.62) E11.49 ??? Leg cramps R25.2 ??? Cigarette smoker F17.210 ??? Unspecified hearing loss H91.90 ??? Herniation of lumbar intervertebral disc with radiculopathy M51.16 ??? Anemia of chronic renal failure, stage 4 (severe) N18.4, D63.1 ??? Essential hypertension with goal blood pressure less than 130/80 I10 ??? Diabetes mellitus E11.9 ??? Hyperlipidemia E78.5 ??? Proteinuria R80.9 ??? Essential hypertension I10 ??? Pre-transplant evaluation for CKD (chronic kidney disease) Z01.818 ??? Hyperglycemia R73.9 ??? Secondary hyperparathyroidism N25.81 ??? CKD (chronic kidney disease) stage 5, GFR less than 15 ml/min N18.5 ??? Right sided numbness R20.0 Medications: Outpatient Medications Marked as Taking for the 04/19/19 encounter (Office Visit) with Jossy Sen APRN Medication Sig Dispense Refill ??? HUMALOG KWIKPEN 100 unit/mL Insulin Pen Inject subcutaneously 3 times daily. Sliding Scale 0 ??? lidocaine-prilocaine (EMLA) Cream Apply 1 Application topically as needed. 3 ??? aspirin 81 mg Tablet, Chewable Take 81 mg by mouth daily. 30 tablet 3 ??? atorvastatin (LIPITOR) 40 mg Tablet Take 1 tablet by mouth every evening. 90 tablet 3 ??? sevelamer carbonate (RENVELA) 800 mg [...] 2 times daily.) 180 tablet 3 ??? insulin detemir U-100 (LEVEMIR) Insulin Pen Inject 55 Units subcutaneously nightly. 10 mL 12 ??? hydrALAZINE (APRESOLINE) 25 mg Tablet Take [...] Tablet Take 1 tablet by mouth daily. Allergies: Allergies Allergen Reactions ??? Clindamycin Swelling. ??? Gabapentin swelling ??? Penicillins Unknown reaction as a child. ??? Pregabalin Other reaction(s): Unsure ??? Zoloft [Sertraline] Other reaction(s): Unsure Family history: Family History Problem Relation Age of Onset ??? Diabetes Mother ??? Cancer Father ??? Diabetes Paternal Grandmother ??? Heart Disease Paternal Grandfather Social history: Social History Social History Narrative ??? Not on file Social History Socioeconomic History ??? Marital status: Spouse name: None ??? Number of children: None ??? Years of education: None ??? Highest education level: None Occupational History ??? None Social Needs ??? Financial resource strain: None ??? Food insecurity: Worry: None Inability: None ??? Transportation needs: Medical: None Non-medical: None Tobacco Use ??? Smoking status: Former Smoker Packs/day: 0.25 Types: Cigarettes Last attempt to quit: 12/26/2018 Years since quittin.3 ??? Smokeless tobacco: Never Used Substance and Sexual Activity ??? Alcohol use: No Frequency: Never ??? Drug use: Yes Types: Marijuana ??? Sexual activity: None Lifestyle ??? Physical activity: Days per week: None Minutes per session: None ??? Stress: None Relationships ??? Social connections: Talks on phone: None Gets together: None Attends orthodoxy service: None Active member of club or organization: None Attends meetings of clubs or organizations: None Relationship status: None ??? Intimate partner violence: Fear of current or ex partner: None Emotionally abused: None Physically abused: None Forced sexual activity: None Other Topics Concern ??? None Social History Narrative ??? None ROS: Constitutional: No fevers or chills, + dizziness Eyes: + vision changes, no diplopia, no blurry vision ENT: No rhinorrhea or pharyngitis, no meningismus CV: No chest pain or palpitations Resp: No cough, no shortness of breath GI: + nausea, + vomiting (chronic problem), no diarrhea or constipation : No dysuria, no incontinence Heme: No bleeding or bruising Endo: + diabetes, no hyroid disease Neuro: See HPI Psych: No depression, normal sleep [x] Review of systems otherwise negative Modified Dooly Scale (MRS) 0: No symptoms at all 1: No significant disability despite symptoms; able to carry out all usual duties and activities 2: Slight disability; unable to carry out all previous activities, but able to look after own affairs without assistance 3: Moderate disability; requiring some help, but able to walk without assistance 4: Moderate disability; unable to walk without assistance and unable to attend to own bodily needs without assistance 5: Severe disability; bedridden, incontinent and requiring constant nursing care and attention 6: Physical Exam: Exam: Most Recent Vitals: 04/19/19 0951 BP: 160/77 Pulse: 63 General: alert, NAD HEENT: oral mucosa moist Abd: soft, nontender, nondistended Ext: no edema, adequate pulses Neuro exam: MSE: alert, oriented to person, place, time, situation, follows simple and complex commands, speechfluent with subtle dysarthria, able to repeat a sentence, names objects. CN: PERRL, no nystagmus, EOMI with +horizontal nystagmus FB to right, visual marti intact, facial sensation intact, no facial droop or asymmetry, tongue protrudes midline, uvula and palate elevate symmetrically, trap symmetric strength bilaterally Motor: 5/5 RUE 5/5 LUE 5/5 RLE 5/5 LLE Normal bulk and tone Reflexes Not tested Sensation: intact light touch, and temperature diffusely Coordination: intact finger nose finger and RYLAN, no dysmetria, no tremor Gait: wide based gait, unsteady, +romberg, unable to perform heel-toe walking Data and records reviewed: ?? Lipids Lipid Panel Lab Results Component Value Date CHLPL 269 03/07/2019 HDL 46 03/07/2019 CHOLHDL 5.8 03/07/2019 TRIG 323 03/07/2019 LDLDIRECT 187 03/07/2019 ?? 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 MRI demonstrated no acute infarct but evidence of white matter disease. Vascular imaging showed no major vessel stenosis in head or neck. TTE revealed normal EF 69%, no evidence of PFO, normal LA. He was instructed to take daily aspirin and statin for future stroke prevention but has been noncompliant with this since discharge. I am not clear what this 3 days of intermittent dizziness and visual disturbance episodes are related to, but requires further investigation to ensure no additional concerns. I have ordered an MRI and will request OSH records to review further and pt should have follow up with PCP. At this time pt should remain on aspirin and statin for future stroke prevention, but more importantly needs to workon smoking cessation (cigarettes and marijuana) as well as his poorly controlled diabetes. Blood pressure is elevated but he is followed closely by nephrology so will leave medication adjustments andgoals up to them and his PCP. I have been asked by Debra Stafford RN to comment on neurology clearance as Gerson is under consideration for kidney transplant. There are no clear contraindications for future transplant surgery with regards to the original neurologic episode in February. The biggest risk with surgery and small vessel dis ease is always hemodynamics, so would be very important to avoid hypotension/hypoperfusion which would increase his risk of mily-procedural stroke. He could be anticoagulated if needed and should remain on antiplatelet if possible, but could be temporarily stopped if high risk bleeding (limiting time off aspirin). I am unable to provide any guidance with regards to his ED visit last night or pastfew days of symptoms as I do not have enough information, but this should be looked into further with regards to surgical risks and further clearance. I am concerned about his compliance and should be taken into serious consideration before undergoing a procedure like that. #TIA #Small vessel disease -Continue aspirin 81mg daily -Continue atorvastatin 40mg daily -Endocrinology for uncontrolled and worsening DMII #New gait imbalance, visual disturbance, dizziness -MRI brain wo -medication compliance counseling -consider PT -f/u with nephrology re:labile BPs -f/u with PCP -obtain records and head CT from [facility] #Tobacco abuse #Marijuana smoker ?? Discussion held regarding current smoking status and the health risks associated with smoking. ?? Patient was assessed for readiness for change. Currently stopped smoking cigarettes. Not ready to quit marijuana smoking. ?? Barriers identified for change: habit, uses smoking as a mood stabilizer ?? Suggested treatment (s) included: supplying patient with the national smoking 'quit line' number(1800-QUIT NOW) and NRT (patches, gum, lozenges) ?? Patient understands suggested treatment and personal plan. ?? A total of 3 minutes were spent counseling the patient. -Return to clinic in 6 weeks or sooner if necessary. Education provided today??covered patient-specific vascular??risk factors, likely cause of the stroke, prognosis and risk of recurrence, medications for stroke prevention, ??management of modifiable risk factors including heart healthy diet, increased physical activity, maintaining smoke free status, moderation in alcohol, weight management, blood pressure, glucose and cholesterol control, warning signs of stroke, plan to contact EMS in event of recurrent symptoms. >43 minutes of this 60 minute visit was devoted to patient education and counseling as detailed above, including 3 minutes of smoking cessation counseling. documented in this encounter Plan of Treatment Scheduled Referrals Name Type Priority Associated Diagnoses Orde r Schedule Referral to Physical Therapy Outpatient Referral Routine At risk for falls Impaired functional mobility, balance, gait, and endurance Ordered: 04/19/2019 documented as of this encounter Visit Diagnoses Diagnosis Cigarette smoker Tobacco use disorder Type 2 diabetes mellitus with complication, without long-term current use of insulin TIA (transient ischemic attack) Unspecified transient cerebral ischemia At risk for falls Personal history of fall Impaired functional mobility, balance, gait, and endurance documented in this encounter Care Teams Application Integration Architect Relationship Specialty Start Date End Date Lauri Barbosa DNP [address] [place] [address] PCP - General Family Medicine 02/06/19 08/09/22 documented as of this encounter
--- OUTSIDE RECORDS SUMMARY | 2024-12-05 12:41 | XMS_ITS | Encounter Summary ---
Author Organization [facility] Address [facility] [place] [address] Care Team Providers Care First Aid Teacher Name Role Phone Lauri Barbosa DNP Primary Care Provider [phone] Encounter Details Date Type Department Care Team (Late st Contact Info) Description 02/06/2019 Orders Only [place] [address] Debra Akins RN Pre-transplant evaluation for kidney transplant; ESRD (end stage renal disease) Social History [...] Visit Diagnoses Diagnosis Pre-transplant evaluation for kidney transplant Other specified pre-operative examination ESRD (end stage renal disease) End stage renal disease documented in this encounter Care Teams First Aid Teacher Relationship Specialty Start Date End Date Lauri Barbosa DNP [address] [place], [place] [id number] PCP - General Family Medicine 02/06/19 08/09/22 documented as of this encounter
--- OUTSIDE RECORDS SUMMARY | 2024-12-05 12:41 | XMS_ITS | Encounter Summary ---
Author Organization [facility] Address [facility] [place] [address] Care Team Providers Care Drier And Evaporator Operator Name Role Phone Raul KarineLauri jansen ADIEL Primary Care Provider [phone] Encounter Details Date Type Department Care Team (Late st Contact Info) Description 09/26/2019 3:15 PM EST - 09/26/2019 4:00 PM EST [place] [address] Kaye Gibbs MD [facility] [place] [address] COLONOSCOPY, POLYPECTOMY, REMOVAL LESION BY SNARE (WRVU 4.57) Social History Tobacco Use Types Packs/Day Years [...] Sign Reading Time Taken Comments Blood Pressure 140/65 09/26/2019 4:00 PM EST Pulse 64 09/26/2019 3:45 PM EST Temperature 36.9 ??C (98.4 ??F) 09/26/2019 2:33 PM ES T Respiratory Rate 16 09/26/2019 4:00 PM EST Oxygen Saturation 91% 09/26/2019 4:00 PM EST Inhaled Oxygen Concentration - - Weight 93 kg (205 lb) 09/26/2019 2:33 PM EST Height 177.8 cm (5' 10) 09/26/2019 2:33 PM EST Body Mass Index 29.41 09/26/2019 2:33 PM EST documented in this encounter Discharge Instructions * Attachments The following attachments cannot be sent through Care Everywhere. * Colonoscopy: Post-op (Nepalese) documented in this encounter Medications at Time of Discharge Medication Sig Dispensed Refills Start Date End Date atorvastatin (LIPITOR) 40 mg Tablet Take 1 tablet by mouth every evening. 90 tablet 3 07/11/2019 03/14/2024 aspirin 81 mg Tablet, Chewable Take 81 mg by mouth daily. 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 Scan at least 5 times/day. 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 Indication= E11.21 6 kit 3 05/04/2019 02/25/2024 HUMALOG KWIKPEN 100 unit/mL Insulin Pen Inject subcutaneously 3 times daily. Sliding Scale 0 02/09/2019 02/25/2024 lidocaine-prilocaine (EMLA) Cream Apply 1 Application topically as needed. 3 03/28/2019 02/25/2024 sevelamer carbonate (RENVELA) 800 mg Tablet Take 1 tablet by mouth 3 times daily (with meals). 180 tablet 3 02/06/2019 06/06/2021 labetalol (NORMODYNE) 100 mg Tablet Take 100 mg by mouth 2 times daily. 0 11/01/2018 08/16/2020 furosemide (LASIX) 80 mg Tablet Take 1 tablet by mouth 2 times daily. 180 tablet 3 10/24/2018 02/25/2024 blood sugar diagnostic strips (ONETOUCH ULTRA TEST) Strip 1 each by Other route 2 times daily (before meals). Dx code 250.02 uses insulin 100 each 11 08/10/2018 02/25/2024 insulin detemir U-100 (LEVEMIR) Insulin Pen Inject 55 Units subcutaneously nightly. 10 mL 12 08/10/2018 02/25/2024 lancets Misc Inject 1 each subcutaneously 2 times daily (before meals). Dx code 250.02 uses insulin 100 each 11 08/10/2018 02/25/2024 hydrALAZINE (APRESOLINE) 25 mg Tablet Take 1 tablet by mouth 3 times daily. 90 tablet 3 08/10/2018 02/25/2024 ranitidine (ZANTAC) 150 mg Tablet Take 150 mg by mouth 2 times daily. 0 08/07/2018 02/25/2024 nortriptyline (PAMELOR) 25 mg Capsule Take 25 mg by mouth nightly. 0 08/05/2018 02/25/2024 amLODIPine (NORVASC) 10 mg TabletIndications:CK D (chronic kidney disease) stage 4, GFR 15-29 ml/min Take 1 tablet by mouth daily. 90 tablet 3 07/04/2018 03/14/2024 pregabalin (LYRICA) 100 mg CapsuleIndications:C KD (chronic kidney disease) stage 3, GFR 30-59 ml/min,Other specified diabetes mellitus with unspecified complications,Essent ial hypertension with goal blood pressure less than 130/80,Hyperkalemia Take 100 mg by mouth 2 times daily. 03/14/2024 multivitamin (THERAGRAN) Tablet Take 1 tablet by mouth daily. 02/25/2024 Insulin Whitefish, Disposable, 31 X 5/16 Needle Inject 1 each subcutaneously 2 times daily (before meals). 100 each 11 07/19/2014 02/25/2024 documented as of this encounter H&P Notes * Kaye Gibbs MD - 09/26/2019 2:50 PM EST Patient Name: Gerson Bruner Patient Age: 53 y.o. Birthdate: 1965 Admit date: 09/26/2019 Attending Physician: Kaye Gibbs MD Gastroenterology and Hepatology Pre-Procedure History and Physical Exam Procedure: Colonoscopy: Indication: Personal history of colon polyps (0.5 cm TA and 2 hyperplastic polyps), father with rectal CA at age 69 yo Patient Active Problem List Diagnosis Code ??? [...] ml/min N18.5 ??? Right sided numbness R20.0 EXAM: HEENT: Airway examined, oropharynx clear Mallampati Score: II (soft palate, uvula, fauces visible) LUNGS: Clear to auscultation HEART: Regular rate and rhythm, normal S1, S2 ABDOMEN: Normal bowel sounds, soft, non tender, non distended, A/P Proceed with the planned endoscopic procedure. ASA 3 - Patient with moderate systemic disease with functional limitations Sedation Plan: moderate (conscious sedation) Risks and benefits of the procedure explained to the patient. Consent signed. documented in this encounter Plan of Treatment Not on file documented as of this encounter Procedures Procedure Name Priority Date/Time Associated Diagnosis Comments SPECIMEN TO PATHOLOGY Routine 09/26/2019 3:50 PM EST SPECIMEN TO PATHOLOGY Routine 09/26/2019 3:50 PM EST SPECIMEN TO PATHOLOGY Routine 09/26/2019 3:50 PM EST SURGICAL PATHOLOGY REPORT Routine 09/26/2019 3:24 PM EST Colonoscopy, Sonu Brown ([id number]) 09/26/2019 3:00 PM EST Screening COLONOSCOPY Routine 09/26/2019 2:48 PM EST POCT GLUCOSE Routine 09/26/2019 2:41 PM EST documented in this encounter Results * Specimen to Pathology (09/26/2019 3:50 PM EST) AP Specimen 09/26/2019 3:50 PM EST 09/26/2019 3:50 PM EST Narrative [facility] - 09/26/2019 3:50 PM EST Specimen requisition ordered. ??Separate Pathology report to follow Kaye Gibbs MD PATHOLOGY/CYTOLOGY O CARMELITA Performing Organization Address City/[facility] [place] [address] * Specimen to Pathology (09/26/2019 3:50 PM EST) AP Specimen 09/26/2019 3:50 PM EST 09/26/2019 3:50 PM EST Narrative [facility] - 09/26/2019 3:50 PM EST Specimen requisition ordered. ??Separate Pathology report to follow Kaye Gibbs MD PATHOLOGY/CYTOLOGY O CARMELITA Performing Organization Address [facility] [place] [address] * Specimen to Pathology (09/26/2019 3:50 PM EST) AP Specimen 09/26/2019 3:50 PM EST 09/26/2019 3:50 PM EST Narrative [facility] - 09/26/2019 3:50 PM EST Specimen requisition ordered. ??Separate Pathology report to follow Kaye Gibbs MD PATHOLOGY/CYTOLOGY O CARMELITA Performing Organization Address [facility] [place] [address] * Surgical Pathology Report (09/26/2019 3:24 PM EST) Final Diagnosis [id number] ? Location: 4T; EA12; A The signing pathologist has (i) examined the relevant preparation(s) for the specimen(s) and (ii) rendered or confirmed the diagnosis(es). . ?Surgical Pathology DIAGNOSIS A - Transverse colon, polypectomy: - Tubular adenoma. - Hyperplastic polyp. B - Ascending colon, polypectomy: - ??Fragments of tubular adenoma. C - Sigmoid colon, polypectomy: - Tubular adenoma. CR-PX Electronically signed by: ??Demetrio Do MD Verified: ??10/02/2019 ?Pathologist Performed at: ??-[facility] Dept. of Pathology, [place], [place] CLINICAL INFORMATION Specimen Submitted: A - Trans. colon polyps x2 B - Ascending colon polyps x 3 C - Sigmoid colon polyp Clinical History and Diagnosis: 53-year-old with history of polyps SPECIMEN PROCESSING A - Labeled/Fixative : Transverse colon polyps x2, formalin. Quantity/Size: Four, ranging from 0.3 x 0.9 cm. Tissue Description: Soft, pink polyps and tissue fragments. Sections/Process ing: Entirely submitted in 3 cassettes as follows: ?A1: ??Tissue fragments ?A2: ??One polyp inked and bisected ?A3: ??One polyp inked and trisected B - Labeled/Fixative : Ascending colon polyps x3, formalin. Quantity/Size: Four, ranging from 0.2-1.3 cm. Tissue Description: Soft, pink polypoid tissues. Sections/Process ing: Submitted en toto ??in 2 cassettes labeled B1-B2. C - Labeled/Fixative : Sigmoid colon polyp, formalin. Quantity/Size: Single, 0.4 cm. Tissue Description: Soft, pink polyp. Sections/Process ing: Submitted en toto ??in 1 cassette labeled C1. ??sns 10/02/2019 2:58 PM EST [facility] GI Biopsy 09/26/2019 3:24 PM EST 09/26/2019 3:24 PM EST GI Biopsy 09/26/2019 3:24 PM EST 09/26/2019 3:24 PM EST GI Biopsy 09/26/2019 3:24 PM EST 09/26/2019 3:24 PM EST Kaye Gibbs MD PATHOLOGY/CYTOLOGY [facility] [place] [address] * COLONOSCOPY (09/26/2019 2:48 PM EST) COLONOSCOPY [facility] Endoscopy Procedure Date: 09/26/2019 2:48 PM ? Patient Name: Gerson Bruner ? N: [id number] ? Date of : 1965 ? Age: 53 ? Order #: [id number] ? Instrument Name: [id number] ? Procedure: ? Colonoscopy Indications: ? High risk colon cancer surveillance: ? Personal history of colonic polyps Providers: ? Kaye Gibbs MD, Kiel Sanchez ? Justina, RN, Thee Rodarte MD: ?Lauri Milton Medicines: ? Midazolam 6 mg IV, Fentanyl [...] preparation was evaluated using ? the BBPS ([place] Bowel Preparation ? Scale) with scores of: [...] Procedure Code(s): ?? --- Professional --- ? 41589, Colonoscopy, flexible; with ? removal of tumor(s), polyp(s), or ? other lesion(s) by snare technique CPT copyright 2017 [employer]. All rights reserved. The codes documented in this report are preliminary and upon precision assembler bench review may be revised to meet current compliance requirements. Attending Participation: ? I personally performed the entire procedure. ? Kaye Gibbs MD Kaye Gibbs MD 09/26/2019 4:02:26 PM This report has been signed electronically. Number of Addenda: 0 Note Initiated On: 09/26/2019 2:48 PM PROVATION 09/26/2019 2:48 PM EST Lauri Milton DNP GENERAL SURGICAL OR DERABLES Performing Organization Address [facility] Co de Phone Number PROVATION * POCT Glucose (09/26/2019 2:41 PM EST) Glucose, POC 122 65 - 199 mg/dL [facility] Comment: Supplemental ranges: <140 mg/dL before meals <180 mg/dL all other times of the day Blood specimen (specimen) 09/26/2019 2:41 PM EST 09/26/2019 2:41 PM EST Kaye Gibbs MD POINT OF CARE TEST O RDERABLES Performing Organization Address [facility] Co de Phone Number [facility] [place] [address] documented in this encounter Visit Diagnoses Not on filedocumented in this encounter Administered Medications Inactive Administered Medications - up to 3 most recent administrations Medication Order MAR Action Action Date Dose Rate Site fentaNYL 50 mcg/mL multi-dose injection ONCE PRN, Starting on Wed09/26/19 at 1504, Until 09/26/19 at 1857, Intra-Operative (Intra-Procedure), Routine Given 09/26/2019 3:23 PM EST 25 mcg Right Arm Given 09/26/2019 3:18 PM EST 50 mcg Ri ght Arm Given 09/26/2019 3:14 PM EST 50 mcg Ri ght Arm lactated ringers infusion 100 mL/hr, Intravenous, CONTINUOUS, Starting on 09/26/19 at 1500, Until Tu09/26/19 at 1656, Endoscopy (Day of Procedure) New Bag 09/26/2019 3:00 PM EST 100 mL/hr 100 mL/hr midazolam (PF) (VERSED) multi-dose injection ONCE PRN, Starting on 09/26/19 at 1504, Until Tu09/26/19 at 1857, Intra-Operative (Intra-Procedure), Routine Given 09/26/2019 3:23 PM EST 0.5 mg Right Arm Given 09/26/2019 3:17 PM EST 1 mg Ri ght Arm Given 09/26/2019 3:14 PM EST 1 mg Ri ght Arm documented in this encounter Active and Recently Administered Medications Times are shown in EST. Continuous Medication Order 09/24/2019 09/25/2019 09/26/2019 lactated ringers infusion (CANCELED) 100 mL/hr, Intravenous, CONTINUOUS, Starting on e 09/26/19 at 1500, Until Wed09/26/19 at 1656, Endoscopy (Day of Procedure) 1500 (New Bag - Prov ider: Blanca Manrique RN) PRN Medication Order 09/24/2019 09/25/2019 09/26/2019 fentaNYL 50 mcg/mL multi-dose injection (CANCELED) ONCE PRN, Starting on 09/26/19 at 1504, Until 09/26/19 at 1857, Intra-Operative (Intra-Procedure), Routine 1504 (Given - Provid er: Kiel Horn RN)1510 (Given - Provider: Kiel Horn RN)1514 (Given - Provider: Kiel Horn RN)1518 (Given - Provider: Kiel Horn RN)1523 (Given - Provider: Kiel Horn RN) midazolam (PF) (VERSED) multi-dose injection (CANCELED) ONCE PRN, Starting on Tue /3/19 at 1504, Until Wed09/26/19 at 1857, Intra-Operative (Intra-Procedure), Routine 1504 (Given - Provid er: Kiel Horn RN)1505 (Given - Provider: Kiel Horn RN)1509 (Given - Provider: Kiel Horn RN)1514 (Given - Provider: Kiel Horn RN)1517 (Given - Provider: Kiel Horn RN)1523 (Given - Provider: Kiel Horn RN) documented in this encounter Care Teams Drier And Evaporator Operator Relationship Specialty Start Date End Date Lauri Barbosa DNP [facility] [address] [place] [address] PCP - General Family Medicine 02/06/19 08/09/22 documented as of this encounter
--- OUTSIDE RECORDS SUMMARY | 2024-12-05 12:41 | XMS_ITS | Encounter Summary ---
Author Organization [facility] Address [facility] [place] [address] Care Team Providers Care Chief Hydroelectric Station Operator Name Role Phone Raul Karine Lauri CHUN Primary Care Provider [phone] Reason for Visit * Auth/Cert Specialty Diagnoses / Procedures Referred By Nadre gardiner Referred To Contact Diagnoses Right sided numbness WEAKNESS / STROKE VS C-SPINE ISSUES Procedures EMERGENCY IPI Referral ID Status Reason Start Date Expiration Date Visits Re quested Visits Authorized [id number] 1 1 Encounter Details Date Type Department Care Team (Latest Contact Info) Description 03/07/2019 12:12 AM EDT - 03/08/2019 1:01 PM EDT Hospital Encounter [place] [address] Simón Romero MD [facility] [place] [address] Rodrigue Vargas MD [facility] [place] [address] Right sided numbness Discharge Disposition: Home Social History Tobacco Use [...] Sign Reading Time Taken Comments Blood Pressure 147/90 03/08/2019 11:00 AM EDT Pulse 73 03/08/2019 11:00 AM EDT Temperature 36.9 ??C (98.4 ??F) 03/08/2019 11:00 AM E DT Respiratory Rate 18 03/08/2019 11:00 AM EDT Oxygen Saturation 95% 03/08/2019 11:00 AM EDT Inhaled Oxygen Concentration - - Weight 98 kg (216 lb 0.8 oz) 03/07/2019 9:00 AM EDT Height 175.3 cm (5' 9) 03/07/2019 9:00 AM EDT Body Mass Index 31.91 03/07/2019 9:00 AM EDT documented in this encounter Discharge Summaries * Imani Kim MD - 03/08/2019 11:24 AM EDT Images from the original note were not included. Discharge Summary Patient Name: Gerson Bruner Patient Age: 53 y.o. Language: Armenian Race: White Ethnicity: Not nor Admit date: 03/07/2019 Discharge date and time: 03/08/1911:25 AM Attending Physician: Rodrigue Vargas MD Discharge Physician: Rodrigue Vargas MD Follow-up Recommendations for Providers: - Please continue ASA 81mg and atorvastatin 40 for stroke prevention - If pt has fluctuating symptoms, will plan to start plavix as well - Please ensure neurology follow up post discharge Inpatient Provider Contact Information: For questions regarding this document or issues related to this hospitalization on the Neurology Service, please contact the author(s) of this discharge summary through the [facility] Ip Attorney . Discharge Diagnoses: Suspected TIA 2/2 small vessel disease (MRI negative for acute infarct) Active Hospital Problems Diagnosis ??? Right sided numbness Resolved Hospital Problems No resolved problems to display. Past medical History: Past Medical History: Diagnosis Date ??? Anemia ??? Chronic kidney disease ??? CKD (chronic kidney disease) stage 4, GFR 15-29 ml/min ??? Diabetes mellitus ??? Herniation of lumbar intervertebral disc with radiculopathy 08/16/2015 L4-5 left ??? Hypertension Active Non Hospital Problems: Active Non-Hospital Problems Diagnosis ??? CKD (chronic kidney disease) stage 5, GFR less than 15 ml/min ??? Secondary hyperparathyroidism ??? Hyperglycemia ??? Pre-transplant evaluation for CKD (chronic kidney disease) ??? Essential hypertension ??? Proteinuria ??? Anemia of chronic renal failure, stage 4 (severe) ??? Essential hypertension with goal blood pressure less than 130/80 ??? Diabetes mellitus ??? Hyperlipidemia ??? Herniation of lumbar intervertebral disc with radiculopathy ??? Type II or unspecified type diabetes mellitus with neurological manifestations, uncontrolled(250.62) ??? Leg cramps ??? Cigarette smoker ??? Unspecified hearing loss History of Presentation: Onset of symptoms (if witnessed) or time of symptom discovery: Wednesday, March 04, 2019 Last known well: Monday, March 04, 2019 Stroke Alert Activated: Not applicable ?? CC: Right-sided numbness and weakness ?? HPI: Gerson Bruner is a 53 y.o. 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 ?? Patient notes that his symptoms started this past Wednesday. He believes it was prior to the start of his Wednesday hemodialysis. He notes that he has been having numbness and tingling down his whole right side specifically in the arms and legs. However, this tingling has also been noted in his face at times. He believes that the symptoms have been coming and going but is unable to describe the duration of time it would initially stay when it started. However at this time he believed that it is more on than off. Does not believe that he has had the tingling in the inside of there is mild for the right side of his tongue. He notes that it feels like this does body has been cut in half in regards to the tingling. He notes that when he rubs his hands down his legs he feels a tingling more in the right side and on the left side. He denies any current neck pain, headache, nausea, vomiting, blurry vision, diplopia, dizziness in regards to this. He does not believe that he has been weak with these episodes but does note that earlier today, when coming off of his tractor, his right leg gave out. It was as though he had no control over it. He does not believe he had weakness in the right armat that time. ?? Patient is currently getting dialysis Wednesday, , and Saturdays. He notes that dialysis is new and has only been ongoing for 2 weeks at this time. He notes that he is currently on the transplant list. He notes headaches after most dialysis treatments. ?? He notes lower lumbar surgery in the past. He also describes an episode of whiplash last year with intermittent neck soreness since that time. ?? He notes a history of neuropathy as well. Believes that he has had EMG studies in the past but doesnot remember when. He notes that he has been a diabetic for over 30 years. ?? He is a former smoker who quit 2 months ago. Prior to quitting he was about a pack a day smoker forclose to 30 years. He smokes marijuana daily and notes that he has done so for just about 30 years.He denies alcohol use. He currently lives near [facility]. Worked in a [employer] for many years. ?? He was not on an anti-thrombotic therapy prior to this admission. ?? Physical Exam at Admission: Gen: Patient of apparent stated age, well nourished, well developed, awake, alert, NAD HEENT: Supple, no meningismus, no carotid bruit, no occipital tenderness; nonfluctuating lump at near C7 slightly lateral to midline on the right. CV: + S1, S2, RRR, no murmur Resp: CTA B/L with good respiratory effort Abd: +normoactive bowel sounds, soft, nontender, nondistended Ext: No edema. No bony deformity Neuro Exam: MS: AAOx4, clear language, no dysarthria, follows commandsappropriately CN: PERRL, EOMI, visual marti full Facial sensation intact, no facial asymmetry Diminished hearing to finger rub, overall hard of hearing Palate elevates symmetrically, tongue protrudes midline SCM and trap strength intact Motor: Normal bulk and tone. UE: 5/5 R, 5/5 L Arm abduction at shoulder 5/5 R, 5/5 L Elbow extension 5/5 R, 5/5 L Elbow flexion 5/5 R, 5/5 L Montessori Paraprofessional LE: 5/5 R, 5/5 L Hip flexion 4+/5 R, 5/5 L Knee extension 4+/5 R, 5/5 L Knee flexion 5/5 R, 5/5 L Foot dorsiflexion 5/5 R, 5/5 L Foot plantar flexion Sensation: light touch slightly diminished on the right in comparison to the left; decreased vibration bilaterally to ankles; impaired proprioception bilaterally; no sensory level identified Reflexes: DTRs 2+ R, 2+ L Biceps 1+ R, 1+ L Brachioradialis 0 R, 0 L Patellar 0 R, 0 L Achilles tendon Toes - R mute, L mute Coordination: Finger to nose intact, no dysmetria Rapid alternating movements & finger tapping smooth and symmetric Heel-whiting intact No tremor Gait: Deferred ?? NIH Stroke Scale: (bold applicable choices) NIH Stroke Scale at Initial Evaluation: ?? 1.a. Level of consciousness: 0-Alert 1-Not alert, but arousable with minimal stimulation 2-Not alert, requires repeat stimulation to attend 3-Coma 1.b. Ask patient the month and their age: 0-Answers both correctly 1-Answers one correctly 2-Both incorrect 1.c. Ask patient to open and close eyes: 0-Obeys both correctly 1-Obeys one correctly 2-Both incorrect 2. Best gaze (horizontal eye movement): 0-Normal 1-Partial gaze palsy 2-Forced deviation 3. Visual field testin-No visual field loss 1-Partial hemianopia 2-Complete hemianopia 3-Bilateral hemianopia (blind including cortical blindness) 4. Facial paresis (Ask patient to show teeth or raise eyebrows and close eyes tightly): 0-Normal symmetrical movement 1-Minor paralysis (flattened nasolabial fold, asymmetry on smiling) 2-Partial paralysis (total or near paralysis of lower face) 3-Complete paralysis of one or both sides (absence of facial movement in the upper and lower face) 5. Motor function right arm: 0-Normal (extends arm 90 degrees for 10 seconds without drift) 1-Drift 2-Some effort against gravity 3-No effort against gravity 4-No movement UT-Untestable (Joint fused or limb amputated) 5. Motor function- left arm: 0-Normal (extends arm 90 degrees for 10 seconds without drift) 1-Drift 2-Some effort against gravity 3-No effort against gravity (but baseline) 4-No movement UT-Untestable (Joint fused or limb amputated) 6. Motor function right le-Normal (extends leg 30 degrees for 5 seconds without drift) 1-Drift 2-Some effort against gravity 3-No effort against gravity 4-No movement UT-Untestable (Joint fused or limb amputated) 6. Motor function-left le-Normal (extends leg 30 degrees for 5 seconds without drift) 1-Drift 2-Some effort against gravity 3-No effort against gravity 4-No movement UT-Untestable (Joint fused or limb amputated) 7. Limb ataxia: 0-No ataxia 1-Present in one limb 2-Present in two limbs 8. Sensory (Use pinprick to test arms, legs, trunk and face compare side to side): 0-Normal 1-Mild to moderate decrease in sensation 2-Severe to total sensory loss 9. Best language (describe picture, name items, read sentences): 0-No aphasia 1-Mild to moderate aphasia 2-Severe aphasia 3-Mute 10. Dysarthria (read several words): 0-Normal articulation 1-Mild to moderate slurring of words 2-Near unintelligible or unable to speak UT-Intubated or other physical barrier 11. Extinction and inattention: 0-Normal 1-Inattention or extinction to bilateral simultaneous in one of the sensory modalities 2-Severe aneesh-inattention or aneesh-inattention to more than one modality ?? TOTAL SCORE: 1 Hospital Course:: Gerson Bruner is a 53 y.o. male [...] etiology of stroke was small vessel related. # Right sided numbness Pt was not [...] will plan to start plavix a well. # ESRD Nephrology was consulted this admission for ESRD, pt continued on his regular HD schedule. Patient was evaluated by rehabilitation services and deemed appropriate for home . Operations & Procedures: none Consultations: 1. PT/OT/SL Diagnostic Tests & Neuroimaging: Date Study Results 03/[address] Head Hypoattenuation within Left posterior internal capsule, concerning for acute infarct 03/08 MRI brain, MRA Head and Neck FINDINGS: MR brain: The ventricles are normal in size and contour. There is no restricted diffusion to suggest acute infarct. There are areas of T2 signal alteration in the white matter posterior hemispheres, a nonspecific finding typically treated to small vessel ischemic change. No intracranial mass, mass effect, or shift. Posterior fossa structures are normal. Skull base, and pituitary are normal. ?? MRA [place]: Intracranial internal carotid arteries are normal in caliber. MCA, YAMILETH, and visualized branches are unremarkable. The intradural vertebral arteries, the basilar artery, and posterior cerebral arteries are normal. ?? MRA NECK: [id number] images demonstrate normal antegrade flow in both carotid and in both vertebral arteries. The aortic arch is normal. Common carotid arteries, carotid bifurcation, and cervical internal carotid arteries are normal. The cervical vertebral arteries are normal in caliber throughout. ?? IMPRESSION ?? 1. No evidence of infarct or other acute intracranial abnormality. 2. No focal vascular stenosis or occlusion. ?? 03/07 TTE SUMMARY: ?? 1. There is normal global left ventricular [...] See remainder of report for additional findings. ?? Labs: Lipid Panel Lab Results Component Value Date CHLPL 269 03/07/2019 HDL 46 03/07/2019 CHOLHDL 5.8 03/07/2019 TRIG 323 03/07/2019 LDLDIRECT 187 03/07/2019 Lab Results Component Value Date HA1C 11.2 (H) 03/07/2019 Last 3 wbc, hgb, hct plt Recent Labs 03/08/19 0510 03/07/19 0504 02/06/19 1522 WBC 5.3 5.5 7.4 HGB 11.7* 10.7* 8.9* HCT 36.6* 33.8* 26.6* PLATELET 227 238 273 Pending Studies and Lab Data: No current labs Vital Signs at Discharge: BP: 147/90, Heart Rate: 73, Temp: 36.9 ??C (98.4 ??F), Resp: 18, BMI (Calculated): 31.9 Height: 175.3 cm (5' 9) (03/07/19 0900) Weight: 98 kg (216 lb 0.8 oz) (03/07/19 09) Functional and Cognitive Status: At baseline Physical Exam at Discharge: Neuro Exam: MS: AAOx4, clear language, no dysarthria, follows commandsappropriately CN: PERRL, EOMI, visual marti full Facial sensation intact, no facial asymmetry Diminished hearing to finger rub, overall hard of hearing Palate elevates symmetrically, tongue protrudes midline SCM and trap strength intact Motor: Normal bulk and tone. UE: 5/5 R, 5/5 L Arm abduction at shoulder 5/5 R, 5/5 L Elbow extension 5/5 R, 5/5 L Elbow flexion 5/5 R, 5/5 L Montessori Paraprofessional LE: 5/5 R, 5/5 L Hip flexion 4+/5 R, 5/5 L Knee extension 4+/5 R, 5/5 L Knee flexion 5/5 R, 5/5 L Foot dorsiflexion 5/5 R, 5/5 L Foot plantar flexion Sensation: baseline R sided numbness due to neuropathy Reflexes: DTRs 2+ R, 2+ L Biceps 1+ R, 1+ L Brachioradialis 0 R, 0 L Patellar 0 R, 0 L Achilles tendon Toes - R mute, L mute Coordination: Finger to nose intact, no dysmetria Rapid alternating movements & finger tapping smooth and symmetric Heel-whiting intact Discharge Conditions/Prognosis: Small vessel disease/ good prognosis Discharge to: Home Updated Allergies/ADRs: Allergies Allergen Reactions ??? Clindamycin Swelling. ??? Gabapentin swelling ??? Penicillins Unknown reaction as a child. Immunizations Given this Hospitalization: Immunization History Administered Date(s) Administered ??? Hepatitis B Vaccine, Adult 08/09/2018 ??? Pneumococcal Polyvalent 23 04/15/2001, 09/07/2011 ??? Td, adult 10/30/1996 ??? Tdap Vaccine 05/31/2016 Discharge Medications: Your Medications New Medications Dose Details aspirin 81 mg Chew Take 81 mg by mouth daily. Start taking on: 03/09/2019 81 mg Quantity: 30 tablet Refills: 3 atorvastatin 40 mg Tab Commonly known as: LIPITOR Take 1 tablet by mouth every evening. 40 mg Quantity: 90 tablet Refills: 3 Continued medications with new dosing Dose Details furosemide 80 mg Tab Commonly known as: LASIX Take 1 tablet by mouth 2 times daily. What changed: how much to take 80 mg Quantity: 180 tablet Refills: 3 sevelamer carbonate 800 mg Tab Commonly known as: RENVELA Take 1 tablet by mouth 3 times daily (with meals). What changed: when to take this 800 mg Quantity: 180 tablet Refills: 3 Continued medications, unchanged Dose Details amLODIPine 10 mg Tab Commonly known as: NORVASC Take 1 tablet by mouth daily. 10 mg Quantity: 90 tablet Refills: 3 blood sugar diagnostic strips Strp Commonly known as: ONETOUCH ULTRA TEST 1 each by Other route 2 times daily (before meals). Dx code 250.02 uses insulin 1 each Quantity: 100 each Refills: 11 hydrALAZINE 25 mg Tab Commonly known as: APRESOLINE Take 1 tablet by mouth 3 times daily. 25 mg Quantity: 90 tablet Refills: 3 insulin detemir U-100 Inpn Commonly known as: LEVEMIR Inject 55 Units subcutaneously nightly. 55 Units Quantity: 10 mL Refills: 12 insulin needles (disposable) 31 gauge x 5/16 Ndle Inject 1 each subcutaneously 2 times daily (before meals). 1 each Quantity: 100 each Refills: 11 labetalol 100 mg Tab Commonly known as: NORMODYNE Take 100 mg by mouth 2 times daily. 100 mg Refills: 0 lancets Misc Inject 1 each subcutaneously 2 times daily (before meals). Dx code 250.02 uses insulin 1 each Quantity: 100 each Refills: 11 multivitamin Tab Commonly known as: THERAGRAN Take 1 tablet by mouth daily. 1 tablet Refills: 0 nortriptyline 25 mg Cap Commonly known as: PAMELOR Take 25 mg by mouth nightly. 25 mg Refills: 0 pregabalin 100 mg Cap Commonly known as: LYRICA Take 100 mg by mouth 2 times daily. 100 mg Refills: 0 ranitidine 150 mg Tab Commonly known as: ZANTAC Take 150 mg by mouth 2 times daily. 150 mg Refills: 0 STOPPED Medications ferrous sulfate 325 mg (65 mg iron) [facility] Smoking Status at Discharge: Social History Tobacco Use Smoking Status Former Smoker ??? Packs/day: 0.25 ??? Types: Cigarettes ??? Last attempt to quit: 12/26/2018 ??? Years since quittin.1 SECONDARY STROKE PREVENTION: Preventative measure Antithrombotic agent for stroke prevention (aspirin,clopidogrel, ticagrelor, therapeutic anticoagulation etc...) was Initiated. If documented history of atrial fibrillation/flutter, N/A Cholesterol-lowering medication (including statins) was prescribed Smoking cessation: If patient smoked within the past year, smoking cessation counseling was performed. Nicotine supplements were refused by the patient/caregiver. Education: Stroke information packet provided to patient and/or family, which included personal modifiable risk factors for stroke, stroke warning signs and symptoms, how to activate EMS for stroke, and need for follow-up after discharge was performed. Modified Karley Score (MRS) on discharge Score Description 0 No symptoms at all 1 No significant disability despite symptoms; able to carry out all usual duties and activities 2 Slight disability; unable to carry out all previous activities, but able to look after own affairs without assistance 3 Moderate disability; requiring some help, but able to walk without assistance 4 Moderately severe disability; unable to walk without assistance 5 Severe disability; bedridden, incontinent and requiring constant nursing care and attention 6 Total Score: 1 NIH Stroke Scale at Discharge Evaluation: 1.a. Level of consciousness: 0-Alert 1-Not alert, but arousable with minimal stimulation 2-Not alert, requires repeat stimulation to attend 3-Coma 1.b. Ask patient the month and their age: 0-Answers both correctly 1-Answers one correctly 2-Both incorrect 1.c. Ask patient to open and close eyes: 0-Obeys both correctly 1-Obeys one correctly 2-Both incorrect 2. Best gaze (horizontal eye movement): 0-Normal 1-Partial gaze palsy 2-Forced deviation 3. Visual field testin-No visual field loss 1-Partial hemianopia 2-Complete hemianopia 3-Bilateral hemianopia (blind including cortical blindness) 4. Facial paresis (Ask patient to show teeth or raise eyebrows and close eyes tightly): 0-Normal symmetrical movement 1-Minor paralysis (flattened nasolabial fold, asymmetry on smiling) 2-Partial paralysis (total or near paralysis of lower face) 3-Complete paralysis of one or both sides (absence of facial movement in the upper and lower face) 5. Motor function right arm: 0-Normal (extends arm 90 degrees for 10 seconds without drift) 1-Drift 2-Some effort against gravity 3-No effort against gravity 4-No movement 9-Untestable (Joint fused or limb amputated) 5. Motor function- left arm: 0-Normal (extends arm 90 degrees for 10 seconds without drift) 1-Drift 2-Some effort against gravity 3-No effort against gravity 4-No movement 9-Untestable (Joint fused or limb amputated) 6. Motor function right le-Normal (extends leg 30 degrees for 5 seconds without drift) 1-Drift 2-Some effort against gravity 3-No effort against gravity 4-No movement 9-Untestable (Joint fused or limb amputated) 6. Motor function-left le-Normal (extends leg 30 degrees for 5 seconds without drift) 1-Drift 2-Some effort against gravity 3-No effort against gravity 4-No movement 9-Untestable (Joint fused or limb amputated) 7. Limb ataxia: 0-No ataxia 1-Present in one limb 2-Present in two limbs 8. Sensory (Use pinprick to test arms, legs, trunk and face compare side to side): 0-Normal 1-Mild to moderate decrease in sensation 2-Severe to total sensory loss 9. Best language (describe picture, name items, read sentences): 0-No aphasia 1-Mild to moderate aphasia 2-Severe aphasia 3-Mute 10. Dysarthria (read several words): 0-Normal articulation 1-Mild to moderate slurring of words 2-Near unintelligible or unable to speak 9-Intubated or other physical barrier 11. Extinction and inattention: 0-Normal 1-Inattention or extinction to bilateral simultaneous in one of the sensory modalities 2-Severe aneesh-inattention or aneesh-inattention to more than one modality TOTAL SCORE: 1 Instructions Given to Patient at Discharge: Patient Instructions Patient Instructions: You were admitted to the neurology service at [facility] Your Diagnosis: Transient Ischemic Attack - Work close with your primary care provider (PCP) with monitoring your blood pressure, blood sugarand cholesterol. - Lifestyle modifications should include: taking all medications as prescribed, smoking cessation or staying away from others who are smoking to avoid second hand smoke, limiting alcohol intake, maintaining a normal/healthy weight, adhering to a healthy diet (low-fat, low-sodium, high intake of fresh fruits and vegetables, limiting red meat), and engaging in regular physical activity. - Please continue ASA 81mg daily for stroke prevention - Please continue atorvastatin 40mg for stroke prevention - Please follow up in neurology clinic post stroke - you will be contacted by the clinic regarding appointment time/date ??? Call 911 or your local EMS if you have sudden weakness or numbness in your face or one of your limbs, slurred speech, loss of vision, or difficulty speaking. It is important to seek medical attention as soon as possible, as these symptoms could be related to a new stroke. ??? Diet: we recommend a heart healthy diet: low fat, low cholesterol, low concentrated sweets. ??? Activity Restrictions: As tolerated. Driving Restrictions: No driving until cleared by neurology Diabetes Follow-up and Instructions: 1. Continue to monitor blood sugars with goal BG <120 and HAIC <7.0. 2. Know your cholesterol levels and the goal you are striving for. Your goal LDL is <100. 3. Continue to try eating healthy, which includes a low fat, low cholesterol, high fiber, no added sweets diet. 4. Exercising regularly is important. The goal for most people is 30 minutes of exercise, 3-4 timesper week. Check with your Health care Provider for specific guidelines. 5. Monitor blood pressure weekly: Goal for most patients is <130/70. Check with your Health CareProvider for specific guidelines. Continue to take all medications daily. 6. Remember to have an annual ophthalmic (eye) examination 7. Remember to have a quarterly foot examination done by your Health care provider. 8. Ask your Health care Provider about annual screening for urine micro-albumin. 9. Please plan quarterly follow-up visits for diabetes management with your Health care Provider. 10. Consider Diabetes Education in your community; [facility] offers a diabetes program called ???Jump Start?? . Call [facility] for more information. Know Your Numbers! Blood Pressure BP Readings from Last 3 Encounters: 03/08/19 150/72 02/06/19 167/83 10/24/18 167/73 HA1C Lab Results Component Value Date HA1C 11.2 (H) 03/07/2019 Cholesterol Lab Results Component Value Date CHLPL 269 03/07/2019 HDL 46 03/07/2019 CHOLHDL 5.8 03/07/2019 TRIG 323 03/07/2019 LDLDIRECT 187 03/07/2019 Below is an explanation of each of the cholesterol test results. Total cholesterol: This test is best when below 200. It can be improved primarily by a low fat diet. HDL (good cholesterol): The higher the better. It is best when above 50. It is primarily genetically determined but can be increased with exercise. LDL (bad cholesterol): this test is best when below 130 (or below 100 if you have heart disease or below 70 if you have had a stroke or TIA). It can be lowered by a low fat diet. Triglycerides: This test is best when below 180. It can be lowered by a low fat diet, avoidance of sweets and weight loss. ??? Follow-up: ??? Neurology: You will have a follow-up appointment in the neurology clinic at [facility]. See below for the appointment time. If you do not have an appointment, you will be called with a time/date for this appointment. ??? Primary Care Provider: Please follow up with your Primary Care Provider within one to 2 weeks of discharge. For questions regarding this document or issues relating to this hospitalization on the Neurology Service, please contact the author(s) of this discharge summary through the [facility] Ip Attorney . General Instructions None Primary Care Provider: Lauri Milton APRN [address] / [facility] [id number] Discharge References/Attachments None documented in this encounter Discharge Instructions * Patient Instructions* Imani Kim MD - 03/08/2019 10:09 AM EDT Images from the original note were not included. Patient Instructions: You were admitted to the neurology service at [facility] Your Diagnosis: Transient Ischemic Attack - Work close with your primary care provider (PCP) with monitoring your blood pressure, blood sugarand cholesterol. - Lifestyle modifications should include: taking all medications as prescribed, smoking cessation or staying away from others who are smoking to avoid second hand smoke, limiting alcohol intake, maintaining a normal/healthy weight, adhering to a healthy diet (low-fat, low-sodium, high intake of fresh fruits and vegetables, limiting red meat), and engaging in regular physical activity. - Please continue ASA 81mg daily for stroke prevention - Please continue atorvastatin 40mg for stroke prevention - Please follow up in neurology clinic post stroke - you will be contacted by the clinic regarding appointment time/date ??? Call 911 or your local EMS if you have sudden weakness or numbness in your face or one of your limbs, slurred speech, loss of vision, or difficulty speaking. It is important to seek medical attention as soon as possible, as these symptoms could be related to a new stroke. ??? Diet: we recommend a heart healthy diet: low fat, low cholesterol, low concentrated sweets. ??? Activity Restrictions: As tolerated. Driving Restrictions: No driving until cleared by neurology Diabetes Follow-up and Instructions: 1. Continue to monitor blood sugars with goal BG <120 and HAIC <7.0. 2. Know your cholesterol levels and the goal you are striving for. Your goal LDL is <100. 3. Continue to try eating healthy, which includes a low fat, low cholesterol, high fiber, no added sweets diet. 4. Exercising regularly is important. The goal for most people is 30 minutes of exercise, 3-4 timesper week. Check with your Health care Provider for specific guidelines. 5. Monitor blood pressure weekly: Goal for most patients is <130/70. Check with your Health CareProvider for specific guidelines. Continue to take all medications daily. 6. Remember to have an annual ophthalmic (eye) examination 7. Remember to have a quarterly foot examination done by your Health care provider. 8. Ask your Health care Provider about annual screening for urine micro-albumin. 9. Please plan quarterly follow-up visits for diabetes management with your Health care Provider. 10. Consider Diabetes Education in your community; [facility] offers a diabetes program called ???Jump Start?? . Call [facility] for more information. Know Your Numbers! Blood Pressure BP Readings from Last 3 Encounters: 03/08/19 150/72 02/06/19 167/83 10/24/18 167/73 HA1C Lab Results Component Value Date HA1C 11.2 (H) 03/07/2019 Cholesterol Lab Results Component Value Date CHLPL 269 03/07/2019 HDL 46 03/07/2019 CHOLHDL 5.8 03/07/2019 TRIG 323 03/07/2019 LDLDIRECT 187 03/07/2019 Below is an explanation of each of the cholesterol test results. Total cholesterol: This test is best when below 200. It can be improved primarily by a low fat diet. HDL (good cholesterol): The higher the better. It is best when above 50. It is primarily genetically determined but can be increased with exercise. LDL (bad cholesterol): this test is best when below 130 (or below 100 if you have heart disease or below 70 if you have had a stroke or TIA). It can be lowered by a low fat diet. Triglycerides: This test is best when below 180. It can be lowered by a low fat diet, avoidance of sweets and weight loss. ??? Follow-up: ??? Neurology: You will have a follow-up appointment in the neurology clinic at [facility]. See below for the appointment time. If you do not have an appointment, you will be called with a time/date for this appointment. ??? Primary Care Provider: Please follow up with your Primary Care Provider within one to 2 weeks of discharge. For questions regarding this document or issues relating to this hospitalization on the Neurology Service, please contact the author(s) of this discharge summary through the [facility] Ip Attorney . documented in this encounter Medications at Time of Discharge Medication Sig Dispensed Refills Start Date End Date HUMALOG KWIKPEN 100 unit/mL Insulin Pen Inject subcutaneously 3 times daily. Sliding Scale 0 02/09/2019 02/25/2024 aspirin 81 mg Tablet, Chewable Take 81 mg by mouth daily. 30 tablet 3 03/09/2019 07/11/2019 atorvastatin (LIPITOR) 40 mg Tablet Take 1 tablet by mouth every evening. 90 tablet 3 03/08/2019 07/11/2019 sevelamer carbonate (RENVELA) 800 mg Tablet Take [...] 1 tablet by mouth daily. 02/25/2024 Insulin [place], Disposable, 31 X 5/16 Needle Inject 1 each subcutaneously 2 times daily (before meals). 100 each 11 07/19/2014 02/25/2024 documented as of this encounter Progress Notes * Lata Saunders - 03/08/2019 12:04 PM EDT Office of Care Management/Caster Helper Name: Gerson Bruner Presenting Issue: Outpatient Dialysis Update Notified [facility] HD unit that patient is scheduled for discharge soon. The dialysis unit is ready for the patient on 03/09/19 at 12:30. The patient will have a schedule of Tue/Viridiana/Sat at 12:30 Plan: Discharge Summary and last acute dialysis records will be faxed to the lusterer upon discharge. This office will be available to the patient, Registered Radiologic Technologist-RN and Monologist for further assistance. Dialysis Unit Address: [address] [place], [place] [id number] Lata Saunders Caster Helper * Becky Fitzpatrick MD - 03/08/2019 6:24 AM EDT Neurology Progress Note Patient name: Gerson Bruner Date of : 1965 PCP: Lauri Milton APRN ID: Gerson Bruner is a 53 y.o. 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 Interval History - Admitted to neurology - Consulted DM management team - TTE completed - MRI/MRA Brain/Head/Neck - complete - Went of dialysis yesterday - BP goal of < 220. Overnight BP 128 - 153. NO PRN given - Numbness is back to baseline. - No acute events overnight, vital signs stable, afebrile - Neurologic exam stable - I/O = 880/3525 = -2645 - B - 216 - TTE: no WMA. LVEF of 69%. No PFO detected - Planning on starting stating therapy (LDL - 187) SCHEDULED MEDICATIONS ??? amLODIPine 10 mg Oral Daily ??? furosemide 40 mg Oral BID ??? labetalol 100 mg Oral BID ??? multivitamin with minerals 1 tablet Oral Daily ??? nortriptyline 25 mg Oral Nightly ??? pregabalin 100 mg Oral BID ??? sevelamer carbonate 800 mg Oral BID WC ??? sodium chloride 0.9 % 5 mL Intravenous BID ??? senna-docusate 2 tablet Oral BID ??? polyethylene glycol (MIRALAX)oral powder 17 g Oral Daily ??? insulin detemir U-100 30 Units Subcutaneous Nightly ??? heparin (Porcine) 5,000 Units Subcutaneous Q8H PAULIE ??? aspirin 81 mg Oral Daily Or ??? aspirin 300 mg Rectal Daily ??? insulin lispro 0-6 Units Subcutaneous Q4H PAULIE ??? insulin lispro 0-10 Units Subcutaneous TID WC PRN MEDICATIONS sodium chloride 0.9 %, lidocaine, magnesium hydroxide, bisacodyl, labetalol, enalaprilat, acetaminophen OR acetaminophen OR acetaminophen, epoetin ken, Glucose 40% oral gel OR dextrose OR glucagon (human recombinant) CONTINUOUS MEDICATIONS Physical Exam: Vitals: Temp: [36.6 ??C (97.9 ??F)-37.2 ??C (99 ??F)] Heart Rate: [70-80] Resp: [16-20] BP: (128-153)/(60-80) SpO2: [92 %-100 %] Heart Rate from SpO2: [74 bpm] Gen: Patient of apparent stated age, well nourished, well developed, awake, alert, NAD HEENT: Supple, no meningismus, no carotid bruit, no occipital tenderness; nonfluctuating lump at near C7 slightly lateral to midline on the right. Neuro Exam: MS: AAOx4, clear language, no dysarthria, follows commandsappropriately CN: PERRL, EOMI, visual marti full Facial sensation intact, no facial asymmetry Diminished hearing to finger rub, overall hard of hearing Palate elevates symmetrically, tongue protrudes midline SCM and trap strength intact Motor: Normal bulk and tone. UE: 5/5 R, 5/5 L Arm abduction at shoulder 5/5 R, 5/5 L Elbow extension 5/5 R, 5/5 L Elbow flexion 5/5 R, 5/5 L Montessori Paraprofessional LE: 5/5 R, 5/5 L Hip flexion 4+/5 R, 5/5 L Knee extension 4+/5 R, 5/5 L Knee flexion 5/5 R, 5/5 L Foot dorsiflexion 5/5 R, 5/5 L Foot plantar flexion Sensation: light touch slightly diminished on the right in comparison to the left; decreased vibration bilaterally to ankles; impaired proprioception bilaterally; no sensory level identified Reflexes: DTRs 2+ R, 2+ L Biceps 1+ R, 1+ L Brachioradialis 0 R, 0 L Patellar 0 R, 0 L Achilles tendon Toes - R mute, L mute Coordination: Finger to nose intact, no dysmetria Rapid alternating movements & finger tapping smooth and symmetric Heel-whiting intact No tremor Gait: Deferred Labs: Recent Results (from the past 24 hour(s)) POCT Glucose Result Value Ref Range POC Glucose 322 (H) 65 - 199 mg/dL Urinalysis with reflex Culture Result Value Ref Range Glucose UA >=500 (CRIT) Negative mg/dL Protein UA >=500 (A) Negative mg/dL Bilirubin UA Negative Negative mg/dL Urobilinogen UA Normal Normal mg/dL pH UA 8.0 5.0 - 8.0 Blood UA Negative Negative mg/dL Ketones UA Negative Negative mg/dL Nitrite UA Negative Negative Leukocytes UA Negative Negative mcL Appearance UA Clear Clear Spec [place] UA 1.010 1.002 - 1.030 Color UA Straw Yellow Culture Reflexed No Urinalysis Microscopic Exam Result Value Ref Range RBC UA 3 0 - 3 /HPF WBC UA 1 0 - 3 /HPF POCT Glucose Result Value Ref Range POC Glucose 314 (H) 65 - 199 mg/dL POCT Glucose Result Value Ref Range POC Glucose 87 65 - 199 mg/dL POCT Glucose Result Value Ref Range POC Glucose 81 65 - 199 mg/dL POCT Glucose Result Value Ref Range POC Glucose 75 65 - 199 mg/dL POCT Glucose Result Value Ref Range POC Glucose 133 65 - 199 mg/dL POCT Glucose Result Value Ref Range POC Glucose 235 (H) 65 - 199 mg/dL POCT Glucose Result Value Ref Range POC Glucose 216 (H) 65 - 199 mg/dL POCT Glucose Result Value Ref Range POC Glucose 177 65 - 199 mg/dL POCT Glucose Result Value Ref Range POC Glucose 152 65 - 199 mg/dL Basic Metabolic Panel (non-fasting) Result Value Ref Range Glucose Lvl 160 65 - 199 mg/dL BUN 28 (H) 10 - 20 mg/dL Creatinine 3.79 (H) 0.80 - 1.50 mg/dL Sodium 138 135 - 145 mmol/L Potassium 4.2 3.5 - 5.0 mmol/L Chloride 99 98 - 107 mmol/L CO2 27 22 - 31 mmol/L Anion Gap 12 5 - 15 mmol/L Calcium 8.5 8.5 - 10.5 mg/dL eGFR 17 (L) >=60 mL/min/1.73 m?? eGFR 20 (L) >=60 mL/min/1.73 m?? Magnesium Result Value Ref Range Magnesium 0.98 0.69 - 1.07 mmol/L Phosphorus Result Value Ref Range Phosphorus 4.7 (H) 2.5 - 4.5 mg/dL Hepatic Function Panel Result Value Ref Range Total Protein 6.4 6.1 - 8.0 gm/dL Albumin 3.4 3.2 - 5.2 gm/dL AST 17 0 - 39 unit/L ALT 19 0 - 55 unit/L Alk Phos 132 (H) 40 - 120 unit/L Bili, Direct 0.1 0.0 - 0.3 mg/dL Hemogram Result Value Ref Range WBC 5.3 4.0 - 9.5 x10(3)/mcL RBC 3.72 (L) 4.58 - 5.54 x10(6)/mcL Hemoglobin 11.7 (L) 13.7 - 16.5 gm/dL Hematocrit 36.6 (L) 40.5 - 48.5 % MCV 98.4 (H) 82.9 - 93.1 fL MCH 31.5 27.5 - 32.1 pg MCHC 32.0 32.0 - 35.7 gm/dL Platelets 227 145 - 357 x10(3)/mcL RDWSD 62.2 (H) 36.0 - 45.0 fL RDWCV 17.7 (H) 11.4 - 13.8 % MPV 11.1 7.6 - 12.9 fL nRBC % Auto 0.0 % nRBC Abs Auto 0.000 0.000 - 0.000 x10(3)/mcL Differential, Automated Result Value Ref Range Neutrophils % 47.9 % Neutr Abs (ANC) 2.54 1.70 - 6.10 x10(3)/mcL Lymphocytes % 32.7 % Lymphocytes Abs 1.7 0.9 - 3.2 x10(3)/mcL Monocytes % 14.6 % Monocyte Abs 0.8 0.3 - 0.9 x10(3)/mcL Eosinophils % 3.8 % Eosinophils Abs 0.2 0.0 - 0.4 x10(3)/mcL Basophils % 0.6 % Basophils Abs 0.0 0.0 - 0.1 x10(3)/mcL Immature Gran % 0.40 % Delmy Gran Abs 0.02 0.00 - 0.04 x10(3)/mcL Diagnostic Tests and Imaging: MRI Brain wo Contrast (03/07) - PENDING MRI Angiogram Neck/Head wwo Contrast - PENDING TTE (03/07) SUMMARY: 1. There is normal global left [...] See remainder of report for additional findings. Assessment and Plan: Gerson Bruner is a 53 y.o. 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 His symptoms could possibly localize to a lacunar infarct and possibly be thalamic or posterior limb of internal capsule. Likely etiology would be small vessel disease in his case. One would favor central and above the spinal cord due to his facial symptoms but this is somewhat intermittent and wasnot apparent during my examination. Cervical spinal cord is also considered as a source of his current symptoms. In addition, although no quite uremic, that is also considered as a source of his symptoms. He is admitted and will obtain an MRI and MRA. His MRI from yesterday was showed chronic white matter disease affecting the thalamus bilaterally, which is consistent with small vessel disease. We suspect that he have may have suffered from a TIA and recommend starting Asprin 81 mg QD and Atorvastatin 40 mg QD. As he is currently on dialysis T, T, S, we will touch base with nephrology to see if this is possible in the inpatient setting as he is due for dialysis later today. Thrombolytics were considered andnot given secondary to diagnosis unclear and out of time window . Patient is medically ready for discharge. # Right-Sided Numbness -Admit to neurology, floor level of care -Neuro check & vitals Q4hrs / Q4hrs -Permissive HTN, treat SBP >220 with prn labetalol, enalaprilat -Aspirin 81 mg daily -Check CBC, BMP, LFT, lipid profile, HbA1c, Mg, Phos, UA -START Atorvastatin 40 mg QD -TTE - complete -12 lead EKG -Telemetry -MRI brain wo contrast -MRA head wo contrast, neck wo contrast -PT/OT -Consider MRI cervical spine # Diabetes Mellitus (a1c 11.28 Feb 2019) -Consulted DM Management Team, recs appreciated: 1. Levemir 30 units nightly ( half home dosing during hosp stay) 2. Lispro custom sliding scale with CF 20 3. Meal-associated Lispro 0-10 units tid ac (or 1 unit: 8 gm carb ratio for each meal) 4. Consider diabetes education and RD consult -Lantus 30 units (normally takes 60-65 units at home) -Intensive ISS (q4h checks) # CKD 5 -Consult Nephrology for dialysis -Sevelamer 800 mg twice daily (prescribed for 3 times daily but patient only takes twice daily) # Hypertension -Labetalol 100 mg twice daily -Furosemide 40 mg twice daily -HOLD home Hydralazine 25 mg twice daily -Amlodipine 10 mg daily # Diabetic neuropathy -Pregabalin 100 mg twice daily -Nortriptyline 25 mg nightly # Prophylaxis -Heparin 5000units SC Q8H -RBOs -SCDs # Supportive care -Regular diet -Tylenol PRN -Up with assistance CODE STATUS: Full Code Becky Fitzpatrick MD Neurology Resident - PGY-2 Vascular Neurology (Stroke) team pager: [phone] 03/08/19 Antithrombotic stroke prevention ASA 81 MG QD; Statin therapy PENDING LIPID PANEL Blood Pressure goals/control PERMISSIVE HTN < 220 Glycemic control Recent Labs 03/07/19 0504 08/10/18 0345 HA1C 11.2* 10.7* Smoking/tobacco Social History Tobacco Use Smoking Status Former Smoker ??? Packs/day: 0.25 ??? Types: Cigarettes ??? Last attempt to quit: 12/26/2018 ??? Years since quittin.1 VTE ppx SCD, HEPARIN SQ Fluids NONE Nutrition Renal diet 2 GM NA; 60/60/75 CHO counting level 2 Discharge barriers (eg., guardianship, advance directive, insurance) PENDING HOSPITAL COURSE Mobility PENDING PT/OT EVAL Last BM 03/07 LDAs Patient Lines/Drains/Airways Status Active LDAs Name: Placement date: Placement time: Site: Days: Peripheral IV Line - Single Lumen 03/07/19 0000 median cubital vein (antecubital fossa), right 03/07/19 0000 less than 1 Review standing lab orders Coags, BMP, LFT, Mg, PO4, Ca, CBC Educational packet 03/08/2019 NIHSS (approx 36 hour post t-PA and intervention) N/A Associated attestation - Rodrigue Vargas MD - 03/08/2019 11:51 PM EDT Neurology Staff Note I have reviewed the resident's history during the visit and I agree with the details as written. Myphysical examination confirms the resident's findings. The assessment and plan were formulated in discussion with me at the time of the visit and I agree with them as documented. Encouraged ongoing tobacco cessation, no additional Rx needed from his perspective. Ready for DC to home. at bedside all questions answered. * Maxine Worrell, RN - 03/07/2019 4:49 PM EDT Office of Care Management Initial Assessment Maxine Worrell RN reviewed record and discussed patient with Care Team. Source of Information: Neuro Stroke Team, bedside nurse, chart review, interviewing patient and their family. Introduced self/reviewed role; services accepted. Reason for Hospitalization: Reason for Admission as Stated by Patient: weakness <principal problem not specified> Past Medical History: Diagnosis Date ??? Anemia ??? Chronic kidney disease ??? CKD (chronic kidney disease) stage 4, GFR 15-29 ml/min ??? Diabetes mellitus ??? Herniation of lumbar intervertebral disc with radiculopathy 08/16/2015 L4-5 left ??? Hypertension Hospitalizations Within the Past 30 Days: no [facility] admits in last 30 days. Anticipated Length Of Stay (If known): Expected Length of Hospitalization: 4 TBD Current Decision-Making Capacity: Patient is A&Ox4 and able to make medical decisions Advance Care Planning: Full Code in [employer]. Current Coping/Education/Information Needs: Current coping questions and concerns have been addressed. Current Functional Ability: SBA Functional Status Prior to Admission: independent with ADLs, driving, no DME used at baseline. Home Environment: lives in 3 level house, 5 steps to enter. No issues navigating stair prior admission. [address] [facility] [address] Social & Family Supports/Community Resources: Lives with spouse who is able to provide support post discharge. Extended Emergency Contact Information Primary Emergency Contact: Melissa Silva Address: [address] [place] [address] [address] [place] [address] [facility] Relation: Spouse Health/Prescription Coverage: Primary Insurance: [employer] [place] Secondary Insurance: N/A Prescription Coverage: Yes Preferred Pharmacy: [id number] [place], [place] - [address] [address] Other: none Primary Care Provider: Lauri Milton APRN [phone] Patient/Caregiver Goals of Treatment: return to previous level of function Potential Needs for Transition of Care: Discussed with patient and family levels of rehab includingSNF, swing, acute and VNA home health and hospice care also discussed. Discussed need to accept first bed available when patient is medically ready. Rehab/SNF: no Home Health: no DME: no Dialysis: yes. [facility] in [place], [place] Address: [address] [place] [address], [place] [address] RS please send resumption of care referral. Patient goes to HD on /Wed/Wed Community Resources: none Transportation: car by spouse Other: none Anticipated Barriers to Discharge/Special Considerations: none vs anticipated barriers to arise as hospitalization continues. Assessment: patient is admitted to Neuro Stroke team for evaluation of right sided numbness, anticipated to discharge home with family support when medically ready. Plan: A member of the Care Management team will continue to monitor progress, follow for continuityof care and assist with transition of care planning. Maxine Worrell RN Nurse Registered Radiologic Technologist Pager [phone] * Ruby Hope OT - 03/07/2019 2:42 PM EDT Occupational Therapy Note: Order received and chart reviewed. Attempted to see pt this AM for OT eval. Obtained social historyfrom pt and , however unable to complete full evaluation, as pt transported [facility]UEL to Dialysis. Social History: Pt lives with his in one-level home, [address]. Bathroom with JacSpaceClaimi tub. Pt reports that he was ambulating well at home, but has baseline knee and back pain that limits his abilityto climb stairs or sit for >30 minutes at a time. OT to follow up tomorrow as available/appropriate for therapy. Please page with any questions. Jocelyn Hope OT Inpatient Rehab Pager #[phone] * Luh Stone RD - 03/07/2019 2:26 PM EDT Nutrition Initial Note Gerson Bruner is a 53 y.o. male Reason for intervention: 1 gram Na diet order Nutrition Recommendations: Suggest Renal 2 gram Na level 2 CHO Controlled diet Enc dietary compliance Patient Active Problem List Diagnosis Code ??? [...] ml/min N18.5 ??? Right sided numbness R20.0 Past Medical History: Diagnosis Date ??? Anemia ??? Chronic kidney disease ??? CKD (chronic kidney disease) stage 4, GFR 15-29 ml/min ??? Diabetes mellitus ??? Herniation of lumbar intervertebral disc with radiculopathy 08/16/2015 L4-5 left ??? Hypertension Active Orders Diet Renal diet 2 GM NA; 60/60/75 CHO counting level 2 Frequency: Effective Now Number of Occurrences: Until Specified Admit Weight: 98 kg Estimated body mass index is 31.91 kg/m?? as calculated from the following: Height as of this encounter: 175.3 cm (5' 9). Weight as of this encounter: 98 kg (216 lb 0.8 oz). [place] Body Weight (IBW): [place] body weight: 70.7 kg (155 lb 13.8 oz) Adjusted ideal body weight: 81.6 kg (179 lb 15 oz) Estimated needs: Calories: 1800 Protein: 85+ grams Today's medications: Renvela, multivitamin, lasix, insulin Lab Results Component Value Date NA 137 03/07/2019 K 5.0 03/07/2019 CL 96 (L) 03/07/2019 CO2 26 03/07/2019 BUN 44 (H) 03/07/2019 CREATININE 5.07 (H) 03/07/2019 GLUCOSE 445 (H) 02/06/2019 MAGNESIUM 1.04 03/07/2019 CALCIUM 8.5 03/07/2019 PHOS 5.8 (H) 03/07/2019 AST 21 03/07/2019 ALT 21 03/07/2019 ALKPHOS 133 (H) 03/07/2019 BILITOT <0.2 (L) 03/07/2019 BILIDIR 0.1 03/07/2019 TRIG 323 03/07/2019 Last Bowel Movement: 03/07/19 Assessment: Pt seen per 1 gram Na diet order ( typically reserved for pediatrics). Suggest Renal 2 gram Na level 2 CHO Controlled diet to better meet pt's nutrition needs. Pt seen on iHD; he is [place] and hungry. Diet restrictions briefly discussed and renal food shopping list reviewed and provided w/mean sof contact. Most recent A1C of 11.2 reflects an average bld glu of ~275 for past 8 weeks. Pt reports checking bld glu BID and reports high readings altho understands benefit of maintaining bld glu < 200. DM mgt cx team will has been consulted. Nutrition Services to attempt f/u later in week for education needs based on plan by DM team. I was able to reach the patient's provider, Savita PALMER, regarding above. JIM BEATTY Beeper #: [phone] * Fareed Bryant MD - 03/07/2019 1:13 PM EDT Nephrology Attending Physician Procedure note: Renal Replacement Therapy for ESRD Gerson Bruner was seen and examined on hemodialysis and the data and chart were reviewed. Current Prescription is :4 hrs Qb 450 ml/min Qd->1.5xQb UF 2.5L Patient alert and Hemodynamically stable and tolerating the procedure so we will continue this prescription. Dialysis access is functioning well. Anemia management and bone metabolism reviewed. Fareed Bryant MD,[facility] Nephrology Attending pgr #[id number] documented in this encounter H&P Notes * Donte Leon MD - 03/07/2019 1:14 AM EDT Neurology Admission History and Physical Patient name: Gerson Bruner Date of : 1965 PCP: Lauri Milton APRN Onset of symptoms (if witnessed) or time of symptom discovery: Monday, March 04, 2019 Last known well: Monday, March 04, 2019 Stroke Alert Activated: Not applicable CC: Right-sided numbness and weakness HPI: Gerson Bruner is a 53 y.o. 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 Patient notes that his symptoms started this past Wednesday. He believes it was prior to the start of his Wednesday hemodialysis. He notes that he has been having numbness and tingling down his whole right side specifically in the arms and legs. However, this tingling has also been noted in his face at times. He believes that the symptoms have been coming and going but is unable to describe the duration of time it would initially stay when it started. However at this time he believed that it is more on than off. Does not believe that he has had the tingling in the inside of there is mild for the right side of his tongue. He notes that it feels like this does body has been cut in half in regards to the tingling. He notes that when he rubs his hands down his legs he feels a tingling more in the right side and on the left side. He denies any current neck pain, headache, nausea, vomiting, blurry vision, diplopia, dizziness in regards to this. He does not believe that he has been weak with these episodes but does note that earlier today, when coming off of his tractor, his right leg gave out. It was as though he had no control over it. He does not believe he had weakness in the right armat that time. Patient is currently getting dialysis Wednesday, , and Saturdays. He notes that dialysis is new and has only been ongoing for 2 weeks at this time. He notes that he is currently on the transplant list. He notes headaches after most dialysis treatments. He notes lower lumbar surgery in the past. He also describes an episode of whiplash last year with intermittent neck soreness since that time. He notes a history of neuropathy as well. Believes that he has had EMG studies in the past but doesnot remember when. He notes that he has been a diabetic for over 30 years. He is a former smoker who quit 2 months ago. Prior to quitting he was about a pack a day smoker forclose to 30 years. He smokes marijuana daily and notes that he has done so for just about 30 years.He denies alcohol use. He currently lives near [facility]. 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 He was not on an anti-thrombotic therapy prior to this admission. Past Medical & Surgical History: Past Medical History: Diagnosis Date ??? Anemia ??? Chronic kidney disease ??? CKD (chronic kidney disease) stage 4, GFR 15-29 ml/min ??? Diabetes mellitus ??? Herniation of lumbar intervertebral disc with radiculopathy 08/16/2015 L4-5 left ??? Hypertension Past Surgical History: Procedure Laterality Date ??? PRO ANASTOMOSIS, AV, ANY SITE Left 09/05/2018 AV FISTULA CREATION, DIRECT HEMODIALYSIS, ANY SITE, EG GABRIEL FISTULA UPPER EXTREMITY (WRVU 11.9) performed by Scout Reese MD at [facility] OR Home Medications: No current facility-administered medications on file prior to encounter. Current Outpatient Medications on File Prior to Encounter Medication Sig Dispense Refill ??? sevelamer carbonate (RENVELA) 800 mg Tablet [...] tablet 3 ??? blood sugar diagnostic strips (NetologyTOUCH ULTRA TEST) Strip 1 each by Other [...] 3 times daily. 90 tablet 3 ??? nortriptyline (PAMELOR) 25 mg Capsule Take 25 mg by mouth nightly. 0 ??? amLODIPine (NORVASC) 10 mg Tablet Take 1 tablet by mouth daily. 90 tablet 3 ??? pregabalin (LYRICA) 100 mg Capsule Take 100 mg by mouth 2 times daily. ??? multivitamin (THERAGRAN) Tablet Take 1 tablet by mouth daily. ??? Insulin [place], Disposable, 31 X 5/16 Needle Inject 1 each subcutaneously 2 times daily (before meals). 100 each 11 ??? ranitidine (ZANTAC) 150 mg Tablet Take 150 mg by mouth 2 times daily. 0 ??? [DISCONTINUED] ferrous sulfate 325 mg (65 mg iron) Tablet, Delayed Release (E.C.) Take 325 mg by mouth daily. Allergy: Allergies Allergen Reactions ??? Clindamycin Swelling. ??? Gabapentin swelling ??? Penicillins Unknown reaction as a child. Family History: Family History Problem Relation Age of Onset ??? Diabetes Mother ??? Cancer Father ??? Diabetes Paternal Grandmother ??? Heart Disease Paternal Grandfather Social History: As per [facility] Social History Socioeconomic History ??? Marital status: Spouse name: Not on file ??? Number of children: Not on file ??? Years of education: Not on file ??? Highest education level: Not on file Occupational History ??? Not on file Social Needs ??? Financial resource strain: Not on file ??? Food insecurity: Worry: Not on file Inability: Not on file ??? Transportation needs: Medical: Not on file Non-medical: Not on file Tobacco Use ??? Smoking status: Former Smoker Packs/day: 0.25 Types: Cigarettes Last attempt to quit: 12/26/2018 Years since quittin.1 ??? Smokeless tobacco: Never Used Substance and Sexual Activity ??? Alcohol use: No Frequency: Never ??? Drug use: Yes Types: Marijuana ??? Sexual activity: Not on file Lifestyle ??? Physical activity: Days per week: Not on file Minutes per session: Not on file ??? Stress: Not on file Relationships ??? Social connections: Talks on phone: Not on file Gets together: Not on file Attends hoahaoism service: Not on file Active member of club or organization: Not on file Attends meetings of clubs or organizations: Not on file Relationship status: Not on file ??? Intimate partner violence: Fear of current or ex partner: Not on file Emotionally abused: Not on file Physically abused: Not on file Forced sexual activity: Not on file Other Topics Concern ??? Not on file Social History Narrative ??? Not on file Review of systems: Constitutional: No fevers or chills Eyes: No vision changes, no diplopia, no blurry vision ENT: No rhinorrhea or pharyngitis, no meningismus CV: No chest pain or palpitations Resp: No cough, no shortness of breath but does feel as though taking deep breaths elicits some of his tingling on the right side GI: No nausea, vomiting, diarrhea or constipation : No dysuria, no incontinence Heme: No bleeding or bruising Endo: No polyuria or cold intolerance Neuro: See HPI Psych: No depression, normal sleep [x] Review of systems otherwise negative Physical Exam: Vitals: Temp: [36.6 ??C (97.9 ??F)] Heart Rate: [60] Resp: [16] BP: (161)/(95) SpO2: [96 %] Heart Rate from SpO2: -- Gen: Patient of apparent stated age, well nourished, well developed, awake, alert, NAD HEENT: Supple, no meningismus, no carotid bruit, no occipital tenderness; nonfluctuating lump at near C7 slightly lateral to midline on the right. CV: + S1, S2, RRR, no murmur Resp: CTA B/L with good respiratory effort Abd: +normoactive bowel sounds, soft, nontender, nondistended Ext: No edema. No bony deformity Neuro Exam: MS: AAOx4, clear language, no dysarthria, follows commandsappropriately CN: PERRL, EOMI, visual marti full Facial sensation intact, no facial asymmetry Diminished hearing to finger rub, overall hard of hearing Palate elevates symmetrically, tongue protrudes midline SCM and trap strength intact Motor: Normal bulk and tone. UE: 5/5 R, 5/5 L Arm abduction at shoulder 5/5 R, 5/5 L Elbow extension 5/5 R, 5/5 L Elbow flexion 5/5 R, 5/5 L Montessori Paraprofessional LE: 5/5 R, 5/5 L Hip flexion 4+/5 R, 5/5 L Knee extension 4+/5 R, 5/5 L Knee flexion 5/5 R, 5/5 L Foot dorsiflexion 5/5 R, 5/5 L Foot plantar flexion Sensation: light touch slightly diminished on the right in comparison to the left; decreased vibration bilaterally to ankles; impaired proprioception bilaterally; no sensory level identified Reflexes: DTRs 2+ R, 2+ L Biceps 1+ R, 1+ L Brachioradialis 0 R, 0 L Patellar 0 R, 0 L Achilles tendon Toes - R mute, L mute Coordination: Finger to nose intact, no dysmetria Rapid alternating movements & finger tapping smooth and symmetric Heel-whiting intact No tremor Gait: Deferred NIH Stroke Scale: (bold applicable choices) NIH Stroke Scale at Initial Evaluation: 1.a. Level of consciousness: 0-Alert 1-Not alert, but arousable with minimal stimulation 2-Not alert, requires repeat stimulation to attend 3-Coma 1.b. Ask patient the month and their age: 0-Answers both correctly 1-Answers one correctly 2-Both incorrect 1.c. Ask patient to open and close eyes: 0-Obeys both correctly 1-Obeys one correctly 2-Both incorrect 2. Best gaze (horizontal eye movement): 0-Normal 1-Partial gaze palsy 2-Forced deviation 3. Visual field testin-No visual field loss 1-Partial hemianopia 2-Complete hemianopia 3-Bilateral hemianopia (blind including cortical blindness) 4. Facial paresis (Ask patient to show teeth or raise eyebrows and close eyes tightly): 0-Normal symmetrical movement 1-Minor paralysis (flattened nasolabial fold, asymmetry on smiling) 2-Partial paralysis (total or near paralysis of lower face) 3-Complete paralysis of one or both sides (absence of facial movement in the upper and lower face) 5. Motor function right arm: 0-Normal (extends arm 90 degrees for 10 seconds without drift) 1-Drift 2-Some effort against gravity 3-No effort against gravity 4-No movement UT-Untestable (Joint fused or limb amputated) 5. Motor function- left arm: 0-Normal (extends arm 90 degrees for 10 seconds without drift) 1-Drift 2-Some effort against gravity 3-No effort against gravity (but baseline) 4-No movement UT-Untestable (Joint fused or limb amputated) 6. Motor function right le-Normal (extends leg 30 degrees for 5 seconds without drift) 1-Drift 2-Some effort against gravity 3-No effort against gravity 4-No movement UT-Untestable (Joint fused or limb amputated) 6. Motor function-left le-Normal (extends leg 30 degrees for 5 seconds without drift) 1-Drift 2-Some effort against gravity 3-No effort against gravity 4-No movement UT-Untestable (Joint fused or limb amputated) 7. Limb ataxia: 0-No ataxia 1-Present in one limb 2-Present in two limbs 8. Sensory (Use pinprick to test arms, legs, trunk and face compare side to side): 0-Normal 1-Mild to moderate decrease in sensation 2-Severe to total sensory loss 9. Best language (describe picture, name items, read sentences): 0-No aphasia 1-Mild to moderate aphasia 2-Severe aphasia 3-Mute 10. Dysarthria (read several words): 0-Normal articulation 1-Mild to moderate slurring of words 2-Near unintelligible or unable to speak UT-Intubated or other physical barrier 11. Extinction and inattention: 0-Normal 1-Inattention or extinction to bilateral simultaneous in one of the sensory modalities 2-Severe aneesh-inattention or aneesh-inattention to more than one modality TOTAL SCORE: 1 Labs: No results found for this or any previous visit (from the past 24 hour(s)). Diagnostic Tests and Imaging: CT head 03/06/2019 Impression: 1. 3 mm hypodense focus within the posterior limb of the left internal capsule concerning for lacunar infarct of indeterminate age. 2. No evidence for acute transcortical infarct, acute intracranial hemorrhage, or mass-effect. CT cervical spine without contrast Impression: Multilevel degenerative changes of the cervical spine. This is most impressive on the right side where there is severe right C4-C5 neuroforaminal narrowing. Chest x-ray 03/06/2019 Impression: Clear lungs. Swallow Screen Results: PASSED (All YES responses) Time 155 PM Assessment and Plan: Gerson Bruner is a 53 y.o. 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 His symptoms could possibly localize to a lacunar infarct and possibly be thalamic or posterior limb of internal capsule. Likely etiology would be small vessel disease in his case. One would favor central and above the spinal cord due to his facial symptoms but this is somewhat intermittent and wasnot apparent during my examination. Cervical spinal cord is also considered as a source of his current symptoms. In addition, although no quite uremic, that is also considered as a source of his symptoms. He is admitted and will obtain an MRI and MRA. We will discuss further whether a cervical MRI is also warranted in his workup. As he is currently on dialysis T, T, S, we will touch base with nephrology to see if this is possible in the inpatient setting as he is due for dialysis later today. Thrombolytics were considered andnot given secondary to diagnosis unclear and out of time window . # Right-Sided Numbness -Admit to neurology, floor level of care -Neuro check & vitals Q4hrs / Q4hrs -Permissive HTN, treat SBP >220 with prn labetalol, enalaprilat -Aspirin 81 mg daily -Check CBC, BMP, LFT, lipid profile, HbA1c, Mg, Phos, UA -Statins if lipids allow -TTE -12 lead EKG -Telemetry -MRI brain wo contrast -MRA head wo contrast, neck wo contrast -PT/OT -Consider MRI cervical spine # Diabetes Mellitus (last a1c 10.7 in August 2018) -Lantus 30 units (normally takes 60-65 units at home) -Intensive ISS (q4h checks) # CKD 5 -Consult Nephrology for dialysis -Sevelamer 800 mg twice daily (prescribed for 3 times daily but patient only takes twice daily) # Hypertension -Labetalol 100 mg twice daily -Furosemide 40 mg twice daily -HOLD home Hydralazine 25 mg twice daily -Amlodipine 10 mg daily # Diabetic neuropathy -Pregabalin 100 mg twice daily -Nortriptyline 25 mg nightly # Prophylaxis -Heparin 5000units SC Q8H -RBOs -SCDs # Supportive care -Regular diet -Tylenol PRN -Up with assistance CODE STATUS: Full code Donte Leon MD Neurology Resident - PGY-3 Vascular Neurology (Stroke) team pager: [phone] 03/07/19 Standard [facility] Swallow Screen: This screen is to be used to document a Swallow Screen prior to ingestion of water and /or oral medications for patients with possible stroke (Ischemic or Hemorrhagic). Exclusion Criteria: A swallow screen is not to be performed on patients who: ?? have a decreased level of consciousness. ?? are not able to follow simple commands. ?? are hypoxic, or have increasing O2 needs or may need to be intubated. ?? have a G/J tube for nutrition. ?? have a recent history of a swallowing disorder *These patients should remain NPO (HOLD MEDS) and the physician notified for further orders. Swallow Screen Using Water: None of the Exclusion Criteria as mentioned above is present? Patient is alert and sitting upright? Able to close lips and tongue is midline? Able to cough, manage oral secretions with dry voice? ONLY IF ABOVE ALL YES, Able to swallow 30 ml of water without coughing, displaying a wet voice or choking? Repeat Twice. ??? If YES to all responses, proceed with water and oral medications as well as diet as medical provider deems appropriate. Consider [employer] consult for full evaluation and diet recommendations. ??? If NO to any of the responses, stop immediately, keep patient NPO and notify physician. ??? Associated attestation - Rodrigue Vargas MD - 03/07/2019 10:20 PM EDT Neurology Staff Note I have reviewed the above resident's history during the visit and I agree with the details as written. My physical examination confirms the resident's findings. The assessment and plan were formulated in discussion with me at the time of the visit and I agree with them as documented. I saw him this AM and reviewed hx and plans with his . He has ongoing tingling that fluctuates some in the right hand and foot. Previously has involved right face as well. Outside CT shows well-defined small round hypodensity left lateral thalamo- capsular region. Presumably is having left thalamic ishcemia related to small vessel disease. CT findings look olderand may just be older small infarction in same area. Awaiting MRI and close monitoring. HD today. Diabetes, poor control, will ask for assistance. I have examined the patient myself and personally reviewed all studies. In addition, I certify thatI am a [facility] credentialed attending provider with admitting privileges and that the patient meets or has met medical necessity to require an inpatient IPI level of care meeting a minimum of two midnights or is on the [facility] inpatient only procedure list (status C) due to: neurologic instability requiring neurologic checks at least every 4 hours. acute stroke requiring neurologic checks at least every 4 hours. MCCs and CCs on admission (Present if in bold): Clinically significant cerebral edema, vasogenic Hyponatremia CHF acute, systolic Brain compression Hypernatremia CHF acute on chronic, systolic Clinically significant cerebral edema, cytotoxic Cerebellar ataxia CHF acute on chronic, diastolic Coma Hypertension, malignant CHF acute diastolic Hemiplegia Hypertension accelerated CHFchronic diastolic Hemiparesis Hypertensive encephalopathy Dementia with delrium Quadraplegia Malnutrition BMI<19 Dementia with depression Encephalopathy, metabolic Cachexia Alzheimer's Dementia with behavioral disturbance Encephalopathy, toxic Morbid obesity, BMI>40 Anoxic brain damage Encephalopathy, other CKD stage 4 (eGFR 15-30ml/min/1.73m2) Acute Kidney Injury Delirium, drug induced CKD stage 5 or ESRD Paroxysmal AF Persistent AF Longstanding persistent AF Permanent AF documented in this encounter Miscellaneous Notes * Plan of Care - Ranjith Velez, OT - 03/08/2019 12:12 PM EDT Occupational Therapy Evaluation Patient profile: Gerson Bruner is a 53 y[address] male of Dr. Rodrigue Vargas MD, admitted on 03/07/2019 for R side weakness resulting from CVA.. Social History: Patient lives w/ Melissa. Home Setup: 1 story house w/ 5 NATE, tub shower, no seat or grab bar, standard toilet seat. DME: cane Baseline ADL/Mobility: I w/ I/ADLs/mobility. Precautions/Special Considerations: None Subjective: Why do I need PT? Objective: Seen today for OT evaluation. Cognitive Status/Behavior: ?? Behavior / Mood: alert and cooperative ?? Alert and oriented to: person, place, time and situation ?? Follows commands: 100% of the time ?? Attention: WFL ?? Safety awareness: WFL and fully aware of deficits ?? Vision & Perception: ?? WNL/WFL Communication: WFL Range of motion, strength, coordination: Hand dominance: right Bilateral UEs are within functional limitations Sensation: Activities of Daily Living: Self-feeding: Indep Grooming: Indep Dressing: Indep Bathing: Indep Toileting: Indep Transfer: Indep Hygiene:Indep Functional Mobility: Supine to sit: Indep Sit to stand: Indep Ambulation: Indep Stand to sit: Indep Sit to supine: Indep Balance: Sitting balance: Indep Standing balance: Indep Vitals: At Rest With Activity SpO2 WNL WNL Heart Rate Blood Pressure Pain: 0/10 Skin: Intact Education: family have been educated on Role of occupational therapy/rehabilitation and verbalize understanding. Patient status, treatment, and mobility recommendations discussed with nursing. Assessment: Pt has been seen for occupational therapy evaluation. Gerson Bruner presents with the following performance skill deficits and client factors: decreased sitting/standing balance. These performance deficits have led to activity limitations and participation restrictions in the followingareas of occupation: IADLs. However, despite the deficits listed above pt demonstrates the ability to complete ADLs w/ I. Pt's works a mile from home and is able to check on pt periodically however both feel pt has reached his baseline. Anticipate that pt will return home with assistance once medically ready. Do not anticipate further OT needs while hospitalized. Equipment needs at discharge: None Anticipated Discharge Disposition: (P) home with assist Other Recommendations: ?? Utilize upright chair position using bed features or transfer to recliner chair as appropriate with A x 1 using FWW, ambulate as tolerated ?? Encourage participation in ADL's by providing set up A on tray table and physical assist only asneeded. Plan: OT: Therapy Frequency: (P) evaluation only Planned OT interventions: Role of occupational therapy/rehabilitation. Total Evaluation Minutes, Occupational Therapy: (P) 20(Low ) 2017 OT Evaluation Code Rationale: ?? Diagnosis & Pertinent Co-Morbidities affecting Plan of Care: see PMHx ?? Occupational Profile & Client History: Brief Expanded Extensive x ?? Assessment of Occupational Performance: 1-3 performance deficits x 3-5 performance deficits 5 + performance deficits ?? Clinical Decision Making: Low Moderate High x Clinical decision making of low complexity using standardized patient assessment instrument and measurable assessment of functional outcome. Pager: [phone] Ranjith Velez OT 03/08/2019 Occupational Therapy Rehabilitation Department * Plan of Care - Hector Gupta RN - 03/08/2019 11:41 AM EDT Problem: Patient Care Overview Goal: Plan of Care Review Outcome: Outcome (s) achieved Date Met: 03/08/19 03/08/19 0803/08/19 1134 Coping/Psychosocial Plan Of Care Reviewed With patient -- Plan of Care Review Progress -- progress toward functional goals as expected OUTCOME EVALUATION NOTE: OUTCOME SUMMARY: A/O, see data flow sheet for VS, denies SOB or CP. Reports baseline numbness due to their neuropathy. Neuro check conducted. Team notified of patient's blood glucose prior to discharge at 244 when they received coverage at 1105, with instructions per team to this RN to recheck patient's blood glucose prior to patient leaving instead of two hour herminia. Patient related they would rather not go over medication information of discharge paperwork and that they know what to do. PLAN MOVING FORWARD: Discharge INDIVIDUALIZED FALL PREVENTION INTERVENTIONS: Patient-specific fall risk factors per assessment: [current deficits]: Tele wires, IV site Assistance [level of assistance required for transfers and ambulation]: SBA Supervision [direct monitoring required during toileting and ADLs]: SBA Surveillance [continuous indirect monitoring]: Tele, purposeful rounding, room near unit station, call mitchell in reach Patient-specific fall prevention interventions for sensory deficits provided, if applicable: CPG GOAL OUTCOME EVALUATION: Goal: Individualization & Mutuality Outcome: Outcome (s) achieved Date Met: 03/08/19 03/07/19 1257 Mutuality/Individual Preferences What Anxieties, Fears or Concerns Do You Have About Your Health or Care? none What Questions Do You Have About Your Health or Care? none What Information Would Help Us Give You More Personalized Care? none Goal: Fall Prevention-Safe Patient Handling Outcome: Outcome (s) achieved Date Met: 03/08/19 03/07/19 0657 03/08/19 0820 03/08/19 1108 Daily Care Interventions Self-Care Promotion independence encouraged -- -- Yen Fall Risk History of Falling -- 0 -- Secondary Diagnosis -- 15 -- Ambulatory Aids -- 0 -- Intravenous Therapy/Heparin/Saline Lock -- 20 -- Gait/Transferring -- 0 -- Mental Status -- 0 -- Score -- 35 -- OTHER Yen Fall Risk -- Med -- Restraint Interventions Safety Promotion/Fall Prevention -- -- safety round/check completed;nonskid shoes/slippers when outof bed Positioning Body Position -- independent -- Activity Activity Type -- activity adjusted per tolerance -- Activity Assistance Provided -- assistance, stand-by -- Assistive Device Utilized -- none -- Goal: Infection Control Outcome: Outcome (s) achieved Date Met: 03/08/19 03/08/19 0820 Coping Strategies Supportive Measures active listening utilized;self-care encouraged Safety Interventions Isolation Precautions standard precautions maintained Infection Prevention environmental surveillance performed;personal protective equipment utilized;rest/sleep promoted Goal: Discharge Needs Assessment Outcome: Outcome (s) achieved Date Met: 03/08/19 03/08/19 1134 Discharge Needs Assessment Concerns To Be Addressed no discharge needs identified Discharge Disposition still a patient Goal: Interdisciplinary Rounds/Family Conf Outcome: Outcome (s) achieved Date Met: 03/08/19 03/08/19 1134 Interdisciplinary Rounds/Family Conf Participants patient;nursing;physician * Plan of Care - Maxine Traylor, PT - 03/08/2019 9:15 AM EDT Physical Therapy Evaluation Patient profile: Gerson Bruner is a 53 y.o. right-handed male with past medical history significant for diabetes (insulin dependent, with nephropathy), hypertension, CKD stage V (secondary to diabetic nephropathy-currently on dialysis) and anemia will presents as a transfer from [facility] regarding right-sided weakness and numbness. Patient with the following active problems: Past Medical History: Diagnosis Date ??? Anemia ??? Chronic kidney disease ??? CKD (chronic kidney disease) stage 4, GFR 15-29 ml/min ??? Diabetes mellitus ??? Herniation of lumbar intervertebral disc with radiculopathy 08/16/2015 L4-5 left ??? Hypertension Past Surgical History: Procedure Laterality Date ??? PRO ANASTOMOSIS, AV, ANY SITE Left 09/05/2018 AV FISTULA CREATION, DIRECT HEMODIALYSIS, ANY SITE, EG GABRIEL FISTULA UPPER EXTREMITY (WRVU 11.9) performed by Scout Reese MD at [facility] MAIN OR Social History: Home set-up: Pt lives with his in 1 level home, 5 NATE. Pt reports that he was ambulating well at home, but has baseline knee and back pain that limits his ability to sit for >30 minutes at a time. No DME Precautions/Special Considerations: fall risk; tele lines; Mobility and Positioning Recommendations: ?? Please encourage up to chair for meal times as able. ?? Pt encouraged to ambulate frequently with staff, getting into the bathroom for toileting and walking out in the carter >/= 3 times daily as able. SBA (pt did not use an AD) Subjective: ???I have no numbness anymore?? Objective: Pt seen for evaluation today. Pain: Number Location At rest 0/10 With activity 0/10 Mental Status: alert, oriented to person, place, and time Skin: WFL Musculoskeletal: ROM: WFL Strength: Grossly WFL Sensation: baseline b/l foot numbness 2/2 neuropathy Bed Mobility: Supine to Sit: did not perform Sit to Supine: did not perform Transfers: Sit to Stand: independent Stand to Sit: independent Gait: Distance: 150 Device used: none Level of assist: SBA to assist with lines Gait mechanics: normal yaritza; occasional wide VIKTOR noted; occasional tandem like gait pattern; educated on slowing pace for safety; no LOB noted Stairs: Pt deferred - felt confident he can do them at home; spouse present and will be there. Provided verbal education on proper sequencing of steps for safety d/t pt reporting R knee pain at timeswith steps, pt and spouse verbalized understanding. Balance: Sitting Static: normal Sitting Dynamic: normal Standing Static: good Standing Dynamic / Gait: Good; occasional tandem like gait and wide VIKTOR noted at times; no LOB. Able to side-step and turn with no LOB Education: patient and significant other has been educated on Bed mobility, Transfers, Stairs, Breathing exercises, Gait , Activity pacing/Energy conservation, Role of therapy, Balance and Discharge planning and verbalizes understanding. Patient status, treatment, and mobility recommendations discussed with nursing. Assessment: Gerson Bruner was seen today for physical therapy evaluation. Presents primarily with baseline decreased sensation (b/l feet). Denies numbness in RUE/RLE/face. Overall, appears to be at his baseline function. Ambulated 150' without an AD with SBA primarily for cues regarding slowing his pace for safety. Occasional tandem like gait pattern and wide VIKTOR noted during gait assessment; however per pt d/t baseline neuropathy, otherwise no LOB. Anticipate no further inpatient PT needs. Recommend d/c to home when medically able, pt has a supportive spouse who will be available. Discharge Recommendations: Based on the current findings, Anticipated Discharge Disposition: home with assist(assist from spouse) when medically ready for hospital discharge. Consult Recommendations: No other consults recommended at this time Equipment needs: Grab bars in bathroom for tub shower Plan: Therapy Frequency: evaluation only. Patient/family understand and agree with plan as stated above. 2017 PT Evaluation Code Rationale: ?? Diagnosis & Pertinent Co-Morbidities, personal factors, and present illness affecting Plan of Care: (see above); Additional personal factors or co- morbidities that impact plan: ?? Total # of Factors: 0 1-2 3+ x ?? Examination of body system impairments, functional limitations and behaviors, and/or participation restrictions. Addressing 1-2 elements x Addressing 3 + elements Addressing 4 + elements ?? Clinical presentation: See assessment above. Stable/Uncomplicated Evolving/Fluctuating Symptoms Unstable/Unpredictable x ?? Clinical decision making of low complexity based on pt's functional performance as outlined in this evaluation. Time IN / OUT: 09:15/09:35 Total Evaluation Minutes, Physical Therapy: 20(eval, gtx1) Maxine Traylor, PT Pager: [phone] Physical Therapy Inpatient Rehabilitation Department * Plan of Care - Sarah Pang RN - 03/08/2019 6:03 AM EDT OUTCOME EVALUATION NOTE: OUTCOME SUMMARY: Pt had an uneventful night. Went for MRI. Slept well throughout the night, at bedside. Refusing SS insulin as he believes it drops his blood sugar too quickly. Neuro exam WDL. Pt denies any numbness other than his baseline neuropathy in his LE. Denies weakness. SR on tele with occ PVCs. PLAN MOVING FORWARD: Review MRI results, probable d/c today INDIVIDUALIZED FALL PREVENTION INTERVENTIONS: Patient-specific fall risk factors per assessment: [current deficits]: Wires, mild weakness Assistance [level of assistance required for transfers and ambulation]: SBA Supervision [direct monitoring required during toileting and ADLs]: With ambulation Surveillance [continuous indirect monitoring]: Tele Patient-specific fall prevention interventions for sensory deficits provided, if applicable: [X] No CPG GOAL OUTCOME EVALUATION: * Plan of Care - Maxine Traylor, PT - 03/07/2019 2:25 PM EDT Physical Therapy Contact Note Consult received and pt history reviewed in eDH. Attempted to see pt this morning for PT evaluation. Obtained social history from pt and , however unable to complete full evaluation, as pt transported SAMUEL to Dialysis. ?? Social History: Pt lives with his in 1 level home, 5 NATE. Pt reports that he was ambulating well at home, but has baseline knee and back pain that limits his ability to sit for >30 minutes demond time. Will re-attempt PT eval tomorrow or as appropriate. Please page this speech writer if you have any questions, thank you. Maxine Traylor, PT, DPT Pager #[phone] Inpatient Rehabilitation * Consult Note - Rocio Levy APRN - 03/07/2019 12:50 PM EDT Images from the original note were not included. Diabetes Management Team Inpatient Consult Date of Consultation: 03/07/2019 Consult Requested by: Neurology resident, Carolyn Pager [phone] Reason for Consultation: Gerson Bruner is a 53 y.o. male with PMH significant for diabetes T2 (insulin dependent, with nephropathy), hypertension, CKD stage V , secondary to diabetic nephropathy-currently on dialysis. who was admitted on 03/07/2019 currently being treated for right sided numbness and weakness. 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 Diabetes History: not obtained at this visit Patient in dialysis Current outpatient diabetes regimen: Diabetes Provider: Lauri Milton APRN Medications: levemir 60-65 u nightly Monitoring is done infrequently per report by nurse Most recent HA1c was done on Aug 2018 and was 10.7 %, Diabetes Complications Status:Unable for full assessment interview Eyes: Unknown Kidneys: + CKD , on dialysis Feet: unknown Sensory: + DM neuropathy Autonomic: Unknown Cardiac: HTN Current Hospital Diabetes Care: Medications: Lispro 3-12 sliding scale q 4 hrs , Levimir 30 U nightly Monitoring: BG q 4 hrs Diet: CKD , low carb ROS: Patient at dialysis [facility] Past Medical History: Diagnosis Date ??? Anemia ??? Chronic kidney disease ??? CKD (chronic kidney disease) stage 4, GFR 15-29 ml/min ??? Diabetes mellitus ??? Herniation of lumbar intervertebral disc with radiculopathy 08/16/2015 L4-5 left ??? Hypertension Current Hospital Medications: ??? amLODIPine 10 mg Oral Daily ??? furosemide 40 mg Oral BID ??? labetalol 100 mg Oral BID ??? multivitamin with minerals 1 tablet Oral Daily ??? nortriptyline 25 mg Oral Nightly ??? pregabalin 100 mg Oral BID ??? sevelamer carbonate 800 mg Oral BID WC ??? sodium chloride 0.9 % 5 mL Intravenous BID ??? senna-docusate 2 tablet Oral BID ??? polyethylene glycol (MIRALAX)oral powder 17 g Oral Daily ??? insulin detemir U-100 30 Units Subcutaneous Nightly ??? heparin (Porcine) 5,000 Units Subcutaneous Q8H PAULIE ??? aspirin 81 mg Oral Daily Or ??? aspirin 300 mg Rectal Daily ??? insulin lispro 3-12 Units Subcutaneous Q4H PAULIE PRN: sodium chloride 0.9 %, lidocaine, magnesium hydroxide, bisacodyl, labetalol, enalaprilat, acetaminophen OR acetaminophen OR acetaminophen, epoetin ken, Glucose 40% oral gel OR dextrose OR glucagon (human recombinant) Allergy: Allergies Allergen Reactions ??? Clindamycin Swelling. ??? Gabapentin swelling ??? Penicillins Unknown reaction as a child. Social history: Social History Tobacco Use ??? Smoking status: Former Smoker Packs/day: 0.25 Types: Cigarettes Last attempt to quit: 12/26/2018 Years since quittin.1 ??? Smokeless tobacco: Never Used Substance Use Topics ??? Alcohol use: No Frequency: Never ??? Drug use: Yes Types: Marijuana Family history: Family History Problem Relation Age of Onset ??? Diabetes Mother ??? Cancer Father ??? Diabetes Paternal Grandmother ??? Heart Disease Paternal Grandfather Vitals Last value Range last 24 hrs Temperature Temp: 36.6 ??C (97.9 ??F) Temp: [36.6 ??C (97.9 ??F)-36.7 ??C (98.1 ??F)] Heart Rate Heart Rate: 70 Heart Rate: [60-73] Blood Pressure BP: 147/78 BP: (147-166)/(71-95) Respiratory Rate Resp: 20 Resp: [16-20] SpO2 SpO2: 97 % SpO2: [96 %-98 %] Physical Exam: Deferred patient at Dialysis Labs: Assessment: Attempt to see patient , currently at dialysis , information gleaned from nurse on 4E and chart review Gerson Bruner is a 53 y.o. 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 Admitted 03-07-19 Diabetes suboptimally controlled , currently complicated by right sided weakness And variability of blood glucose levels while hospitalized requiring adjustment of insulin regimen and DM medications. # Diabetes Mellitus (last a1c 10.7 in August 2018) -Lantus 30 units (normally takes 60-65 units at home) -Intensive ISS (q4h checks) Plan: Discussed with nurse 1. Levemir 30 units nightly ( half home dosing during hosp stay) 2. Lispro custom sliding scale with CF 20 3. Meal-associated Lispro 0-10 units tid ac (or 1 unit: 8 gm carb ratio for each meal) 4. 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 Monitoring - continue BG Q4 hrs Diet - low fat/low carb diet, CKD Exercise - weight-bearing exercise 30 min/day, as tolerated Thank you for allowing us to provide care for your patient, will continue to follow Rocio Levy APRN Endocrinology Pager [phone] * Consult Note - Leelee Edge MD - 03/07/2019 9:49 AM EDT HYPERTENSION/ NEPHROLOGY CONSULT PATIENT: Gerson Bruner : 1965 REASON FOR CONSULTATION: Referred for Management of HD. HPI:Gerson Bruner is a 53 y.o. male with PMH significant for diabetes T2 (insulin dependent, with nephropathy), hypertension,CKD stage V with recent start on HD [facility] was admitted on 03/07/2019 currently being treated for right sided numbness and weakness.Nephrology consulted for management of Dialysis .He is a new start recently due to progression of CKD due to diabetic nephropathy ,no issues with HD and his last treatment is on Wednesday .He have been feeling numbness of right side which started 2 days back ,denied any chest pain or palpitations or blood pressure issues recently.He does have pain and discoloration of left arm due to infiltration of fistula which faded gradually last week.Found to have left sided lacunar infarct and right sided cervical spine -C4-C5 neural foraminal narrowing likely causing his weakness and Neurology planning MRI of spine and brain to evaluate further.Seen on HD this morning ,no issues on machine. Past Medical History: Diagnosis Date ??? Anemia ??? Chronic kidney disease ??? CKD (chronic kidney disease) stage 4, GFR 15-29 ml/min ??? Diabetes mellitus ??? Herniation of lumbar intervertebral disc with radiculopathy 08/16/2015 L4-5 left ??? Hypertension Past Surgical History: Procedure Laterality Date ??? PRO ANASTOMOSIS, AV, ANY SITE Left 09/05/2018 AV FISTULA CREATION, DIRECT HEMODIALYSIS, ANY SITE, EG GABRIEL FISTULA UPPER EXTREMITY (WRVU 11.9) performed by Scout Reese MD at [facility] MAIN OR Family History Problem Relation Age of Onset ??? Diabetes Mother ??? Cancer Father ??? Diabetes Paternal Grandmother ??? Heart Disease Paternal Grandfather Social History Social History Narrative Not on file Outpatient medications: No current facility-administered medications on file prior to encounter. Current Outpatient Medications on File Prior to Encounter Medication Sig Dispense Refill ??? sevelamer carbonate (RENVELA) 800 mg Tablet [...] tablet 3 ??? blood sugar diagnostic strips ([employer]check[employer] ULTRA TEST) Strip 1 each by Other [...] 3 times daily. 90 tablet 3 ??? nortriptyline (PAMELOR) 25 mg Capsule Take 25 mg by mouth nightly. 0 ??? amLODIPine (NORVASC) 10 mg Tablet Take 1 tablet by mouth daily. 90 tablet 3 ??? pregabalin (LYRICA) 100 mg Capsule Take 100 mg by mouth 2 times daily. ??? multivitamin (THERAGRAN) Tablet Take 1 tablet by mouth daily. ??? Insulin [place], Disposable, 31 X 5/16 Needle Inject 1 each subcutaneously 2 times daily (before meals). 100 each 11 ??? ranitidine (ZANTAC) 150 mg Tablet Take 150 mg by mouth 2 times daily. 0 ??? [DISCONTINUED] ferrous sulfate 325 mg (65 mg iron) Tablet, Delayed Release (E.C.) Take 325 mg by mouth daily. MEDICATIONS: ??? amLODIPine 10 mg Oral Daily ??? furosemide 40 mg Oral BID ??? labetalol 100 mg Oral BID ??? multivitamin with minerals 1 tablet Oral Daily ??? nortriptyline 25 mg Oral Nightly ??? pregabalin 100 mg Oral BID ??? sevelamer carbonate 800 mg Oral BID WC ??? sodium chloride 0.9 % 5 mL Intravenous BID ??? senna-docusate 2 tablet Oral BID ??? polyethylene glycol (MIRALAX)oral powder 17 g Oral Daily ??? insulin detemir U-100 30 Units Subcutaneous Nightly ??? heparin (Porcine) 5,000 Units Subcutaneous Q8H PAULIE ??? aspirin 81 mg Oral Daily Or ??? aspirin 300 mg Rectal Daily ??? insulin lispro 3-12 Units Subcutaneous Q4H PAULIE Allergies Allergen Reactions ??? Clindamycin Swelling. ??? Gabapentin swelling ??? Penicillins Unknown reaction as a child. ROS: Constitutional - No fevers, chills, weight loss Skin - No rash or itchy skin HEENT - No headaches, visual changes Resp - No cough, shortness of breath CV - No chest pain, leg swelling, difficulty breathing lying flat GI - No nausea, vomiting,change in bowel habits/abdominal pain - No change in urine output. No pain urinating or blood in urine. Neuro - Have weakness and numbness/ tingling in right upper and lower extremities. PHYSICAL EXAM: Last value Range last 24 hrs Temperature Temp: 36.6 ??C (97.9 ??F) Temp: [36.6 ??C (97.9 ??F)-36.7 ??C (98.1 ??F)] Heart Rate Heart Rate: 70 Heart Rate: [60-73] Blood Pressure BP: 152/78 BP: (152-166)/(71-95) Respiratory Rate Resp: 16 Resp: [16-17] SpO2 SpO2: 98 % SpO2: [96 %-98 %] Appearance - Alert, Comfortable. Skin - No exanthem. HEENT - Sclera white. Mucous membranes moist. Chest: Lungs clear to ausculatation w/o wheezes/ rhonchi/ crackles. Heart - S1 and S2 clear w/o murmur, gallop, or rub. JVP not elevated. Abd - Soft. + BS. No bruit. Non tender. Ext - LUE AVF w/ good thrill/ bruit. Warm. No cyanosis. Trace dependent edema. Neuro - No asterixis. STUDIES: Labs: CBC: Recent Labs 03/07/19 0504 02/06/19 1522 10/24/18 1306 WBC 5.5 7.4 7.1 HGB 10.7* 8.9* 10.5* PLATELET 238 273 295 Chemistry: Recent Labs 03/07/19 0504 02/06/19 1522 10/24/18 1306 10/17/18 NA 137 136 142 138* K 5.0 4.9 4.7 4.7* CL 96* 94* 106 103* CO2 26 28 23 27* BUN 44* 79* 54* 42* CREATININE 5.07* 5.16* 4.15* 3.82* GLUCOSE -- 445* 86 292* Recent Labs 03/07/19 0504 02/06/19 1522 10/24/18 1306 08/10/18 0345 CALCIUM 8.5 10.0 8.6 < > 8.1* MAGNESIUM 1.04 -- -- -- 0.90 PHOS 5.8* 7.3* 4.4 -- 3.3 < > = values in this interval not displayed. LFT's: Recent Labs 03/07/19 0504 02/06/19 1522 10/24/18 1306 10/17/18 08/10/18 0345 BILITOT <0.2* -- -- 0.3* <0.2* BILIDIR 0.1 -- -- -- <0.1 ALBUMIN 3.3 3.8 3.0* 2.8* 3.2 ALKPHOS 133* -- -- 128* 90 ALT 21 -- -- 30* 35 AST 21 -- -- 20* 15 Lab Results Component Value Date PTH 45 02/06/2019 CALCIUM 8.5 03/07/2019 PHOS 5.8 (H) 03/07/2019 IMPRESSION/ RECOMMENDATIONS:Gerson Bruner is a 53 y.o. male with PMH significant for diabetes T2 (insulin dependent, with nephropathy), hypertension,CKD stage V with recent start on HD [facility] was admitted on 03/07/2019 currently being treated for right sided numbness and weakness.Nephrologyconsulted for management of Dialysis 1,ESRD on HD ;TTS: - Started recently on HD at [facility] ,ESRD secondary to diabetic nephropathy - Access - LUE AVF which is functioning well with no issues here. - Did not miss any dialysis sessions or fluid overload or hyperkalemic ,planned his regular dialysis today. - HD orders: 4 hrs: 2k bath and 2.5 KG UF goal ; no heparin as patient have acute stroke,HD is withno issues. - Strict Is and Os,daily weights - Avoid nephrotoxins like NSAID's and renally dose medications - Avoid oxycodone and morphine for pain mgt ,consider fentanyl,dilaudid and methadone - Consider blood draws on dialysis days 2,Bone and Mineral Disease: - Calcium levels are at goal but phos levels are mildly elevated,continue on Sevlamer. 3,Anemia: - Hemoglobin is at target on GEORGE supplementation will hold if Hgb>11 . 4,Hypertension: - On Lasix,labetalol and Amlodipine currently ,blood pressure medication adjustment as per neurology as there is an acute stroke. Thanks for letting us participate in the care of this patient. Seen and Discussed w/ Dr. Manny Edge MD Nephrology Fellow #[id number] Associated attestation - Fareed Bryant MD - 03/07/2019 4:46 PM EDT I saw and discussed the patient with the fellow and I agree with the assessment and plan in her note. Patient is seen on dialysis please see separate note from same day. Patient is admitted with numbness/paresthesia and right upper extremity back and lower extremity. Neurology is involved and he isnot a candidate for TPA therapy. Patient appears to be tolerating dialysis well without increased and numbness on his right side. * Plan of Care - Maegan, Jade Payne RN - 03/07/2019 7:01 AM EDT Problem: Patient Care Overview Goal: Plan of Care Review Outcome: Ongoing (Interventions Implemented as Appropriate) 03/07/19 0657 Coping/Psychosocial Plan Of Care Reviewed With patient;family Plan of Care Review Progress no change OUTCOME EVALUATION NOTE: OUTCOME SUMMARY: Xander had an uneventful shift. A&Ox4. VS/I&O as documented. SR on tele, see scanned docs for full report. Pt continues to report R sided numbness/tingling- aware. 0500 BG 325, pt states I'll only take the short-acting OR long- acting, not both... Short-acting given per pt request- MD notified. Call mitchell within reach. Will continue to monitor. PLAN MOVING FORWARD: MRI of head/neck. D/C Planning. CPG GOAL OUTCOME EVALUATION: Ongoing Goal: Fall Prevention-Safe Patient Handling Outcome: Ongoing (Interventions Implemented as Appropriate) 03/07/195 03/07/19 0657 Daily Care Interventions Self-Care Promotion -- independence encouraged Yen Fall Risk History of Falling 0 -- Secondary Diagnosis 15 -- Ambulatory Aids 0 -- Intravenous Therapy/Heparin/Saline Lock 20 -- Gait/Transferring 10 -- Mental Status 0 -- Score 45 -- OTHER Yen Fall Risk High -- Restraint Interventions Safety Promotion/Fall Prevention activity supervised;nonskid shoes/slippers when out of bed;safety round/check completed -- Positioning Body Position supine, head elevated;independent -- Activity Activity Type activity adjusted per tolerance -- Activity Assistance Provided assistance, stand-by -- Assistive Device Utilized none -- Goal: Infection Control Outcome: Ongoing (Interventions Implemented as Appropriate) 03/07/195 03/07/19 0657 Coping Strategies Supportive Measures -- active listening utilized;self-care encouraged;verbalization of feelings encouraged Safety Interventions Isolation Precautions standard precautions maintained -- Infection Prevention environmental surveillance performed -- documented in this encounter Plan of Treatment Not on file documented as of this encounter Procedures Procedure Name Priority Date/Time Associated Diagnosis Comments POCT GLUCOSE Routine 03/08/2019 12:19 PM EDT POCT GLUCOSE Routine 03/08/2019 11:05 AM EDT POCT GLUCOSE Routine 03/08/2019 11:03 AM EDT POCT GLUCOSE Routine 03/08/2019 7:21 AM EDT HEMOGRAM Routine 03/08/2019 5:10 AM EDT DIFFERENTIAL, AUTOMATED Routine 03/08/2019 5:10 AM EDT CBC (WITH DIFF) Routine 03/08/2019 5:10 AM EDT PHOSPHORUS Routine 03/08/2019 5:10 AM EDT MAGNESIUM Routine 03/08/2019 5:10 AM EDT HEPATIC FUNCTION PANEL Routine 03/08/2019 5:10 AM EDT BASIC METABOLIC PANEL Routine 03/08/2019 5:10 AM EDT POCT GLUCOSE Routine 03/08/2019 5:09 AM EDT MRI HEAD ANGIOGRAM WO CONTRAST Routine 03/07/2019 10:19 PM EDT MRI BRAIN WO CONTRAST Routine 03/07/2019 10:19 PM EDT MRI NECK ANGIOGRAM WWO CONTRAST Routine 03/07/2019 10:19 PM EDT ECHO COMPLETE W CONTRAST Routine 03/07/2019 10:27 AM EDT Right sided numbness POCT GLUCOSE Routine 03/07/2019 9:39 AM EDT URINALYSIS MICROSCOPIC EXAM Routine 03/07/2019 8:02 AM EDT URINALYSIS WITH REFLEX CULTURE Routine 03/07/2019 8:02 AM EDT POCT GLUCOSE Routine 03/07/2019 7:36 AM EDT BMP W/FASTING GLUCOSE Routine 03/07/2019 5:04 AM EDT HEMOGRAM Routine 03/07/2019 5:04 AM EDT DIFFERENTIAL, AUTOMATED Routine 03/07/2019 5:04 AM EDT GOLD TUBE HOLD Routine 03/07/2019 5:04 AM EDT APTT Routine 03/07/2019 5:04 AM EDT PROTHROMBIN TIME Routine 03/07/2019 5:04 AM EDT CBC (WITH DIFF) Routine 03/07/2019 5:04 AM EDT TRIGLYCERIDE Routine 03/07/2019 5:04 AM EDT PHOSPHORUS Routine 03/07/2019 5:04 AM EDT MAGNESIUM Routine 03/07/2019 5:04 AM EDT LDL CHOLESTEROL, DIRECT Routine 03/07/2019 5:04 AM EDT HDL/CHOL PROFILE Routine 03/07/2019 5:04 AM EDT HEMOGLOBIN A1C Routine 03/07/2019 5:04 AM EDT HEPATIC FUNCTION PANEL Routine 03/07/2019 5:04 AM EDT POCT GLUCOSE Routine 03/07/2019 4:59 AM EDT documented in this encounter Results * (ABNORMAL) POCT Glucose (03/08/2019 12:19 PM EDT) Glucose, POC 201(H) 65 - 199 mg/dL [facility] Comment: Supplemental ranges: <140 mg/dL before meals <180 mg/dL all other times of the day Blood specimen (specimen) 03/08/2019 12:19 PM EDT 03/08/2019 12:19 PM EDT Rodrigue Vargas MD POINT OF CARE TEST ORDERABLES [facility] [place] [address] * (ABNORMAL) POCT Glucose (03/08/2019 11:05 AM EDT) Glucose, POC 244(H) 65 - 199 mg/dL [facility] Comment: Supplemental ranges: <140 mg/dL before meals <180 mg/dL all other times of the day Blood specimen (specimen) 03/08/2019 11:05 AM EDT 03/08/2019 11:05 AM EDT Rodrigue Vargas MD POINT OF CARE TEST ORDERABLES Performing Organization Address City/[facility]/ZIP Co de Phone Number [facility] [place] [address] * (ABNORMAL) POCT Glucose (03/08/2019 11:03 AM EDT) Glucose, POC 254(H) 65 - 199 mg/dL [facility] Comment: Supplemental ranges: <140 mg/dL before meals <180 mg/dL all other times of the day Blood specimen (specimen) 03/08/2019 11:03 AM EDT 03/08/2019 11:03 AM EDT Rodrigue Vargas MD POINT OF CARE TEST ORDERABLES Performing Organization Address [facility] Co de Phone Number [facility] [place] [address] * POCT Glucose (03/08/2019 7:21 AM EDT) Glucose, POC 146 65 - 199 mg/dL [facility] Comment: Supplemental ranges: <140 mg/dL before meals <180 mg/dL all other times of the day Blood specimen (specimen) 03/08/2019 7:21 AM EDT 03/08/2019 7:21 AM EDT Rodrigue Vargas MD POINT OF CARE TEST ORDERABLES Performing Organization Address City/[facility] Co de Phone Number [facility] [place] [address] * Differential, Automated (03/08/2019 5:10 AM EDT) Neutrophil % 47.9 % [facility] Neutrophil Absolute 2.54 1.70 - 6.10 x10(3)/[facility] LABOR[facility] Lymph % 32.7 % [facility] Lymphocytes Abs 1.7 0.9 - 3.2 x10(3)/[facility]OR[facility]ORY Monocyte % 14.6 % [facility] Monocyte Abs 0.8 0.3 - 0.9 x10(3)/[facility] LABOR[facility]ORY Eos % 3.8 % [facility] Eosinophils Abs 0.2 0.0 - 0.4 x10(3)/[facility]OR[facility]ORY Basophil % 0.6 % [facility] Baso Absolute 0.0 0.0 - 0.1 x10(3)/[facility] LABORATORY Immature Gran % 0.40 % [facility] Comment: Immature granulocytes(IG's)percentage and absolute count will include metamyelocytes, myelocytes, and promyelocytes. Blood smears from CBCs yielding IG's will be scanned manually for concordance. If this scan disagrees with the automated IG or if promyelocytes are noted, a manual differential will be performed. Immature Gran Absolute 0.02 0.00 - 0.04 x10(3)/[facility] Blood specimen (specimen) 03/08/2019 5:10 AM EDT 03/08/2019 5:24 AM EDT Narrative Resulting Agency Comment Spec In Lab Donte Leon MD HEMATOLOGY [place] [facility] [place] [address] * (ABNORMAL) Hemogram (03/08/2019 5:10 AM EDT) White Blood Cell 5.3 4.0 - 9.5 x10(3)/ L [facility] Red Blood Cell 3.72(L) 4.58 - 5.54 x10(6)/ L [facility] Hemoglobin 11.7(L) 13.7 - 16.5 gm/dL [facility] Hematocrit 36.6(L) 40.5 - 48.5 % [facility] Mean Cell Volume 98.4(H) 82.9 - 93.1 fL [facility] Mean Cell Hemoglobin 31.5 27.5 - 32.1 pg [facility] Mean Cell Hemoglobin Concentration 32.0 32.0 - 35.7 gm/dL [facility] Platelet 227 145 - 357 x10(3)/mc L [facility] RDW Standard Deviation 62.2(H) 36.0 - 45.0 fL [facility] RDW coefficient of variation 17.7(H) 11.4 - 13.8 % [facility] Mean Platelet Volume 11.1 7.6 - 12.9 fL [facility] NRBC% auto 0.0 % [facility] NRBC Absolute 0.000 0.000 - 0.000 x10(3)/mc L [facility] Blood specimen (specimen) 03/08/2019 5:10 AM EDT 03/08/2019 5:24 AM EDT Narrative Resulting Agency Comment Spec In Lab Donte Leon MD HEMATOLOGY [place] [facility] [place] [address] * (ABNORMAL) Hepatic Function Panel (03/08/2019 5:10 AM EDT) Protein, Total 6.4 6.1 - 8.0 gm/dL [facility] Albumin 3.4 3.2 - 5.2 gm/dL [facility] Aspartate Aminotransferase 17 0 - 39 unit/L [facility] Alanine Aminotransferase 19 0 - 55 unit/L [facility] Alkaline Phosphatase 132(H) 40 - 120 unit/L [facility] Bilirubin, Total <0.2(L) 0.2 - 1.3 mg/dL [facility] Bilirubin, Direct 0.1 0.0 - 0.3 mg/dL [facility] Blood specimen (specimen) 03/08/2019 5:10 AM EDT 03/08/2019 5:24 AM EDT Narrative Resulting Agency Comment Spec In Lab Simón Romero MD CHEMISTRY ORDERABLES Performing Organization Address City/[facility] Co de Phone Number [facility] [place] [address] * (ABNORMAL) Phosphorus (03/08/2019 5:10 AM EDT) Phosphorus 4.7(H) 2.5 - 4.5 mg/dL [facility] Blood specimen (specimen) 03/08/2019 5:10 AM EDT 03/08/2019 5:24 AM EDT Narrative Resulting Agency Comment Spec In Lab Simón Romero MD CHEMISTRY ORDERABLES Performing Organization Address [facility] Co de Phone Number [facility] [place] [address] * Magnesium (03/08/2019 5:10 AM EDT) Magnesium 0.98 0.69 - 1.07 mmol/L [facility] Blood specimen (specimen) 03/08/2019 5:10 AM EDT 03/08/2019 5:24 AM EDT Narrative Resulting Agency Comment Spec In Lab Simón Romero MD CHEMISTRY ORDERABLES Performing Organization Address [facility] Co de Phone Number [facility] [place] [address] * (ABNORMAL) Basic Metabolic Panel (non-fasting) (03/08/2019 5:10 AM EDT) Glucose 160 65 - 199 mg/dL [facility] Comment:Diabetes: >=200 mg/d L plus symptoms Blood Urea Nitrogen 28(H) 10 - 20 mg/dL [facility] Creatinine 3.79(H) 0.80 - 1.50 mg/dL [facility] Comment:delta result recheck ed-KLA Sodium 138 135 - 145 mmol/L [facility] Potassium 4.2 3.5 - 5.0 mmol/L [facility] Comment: Please note: ??Patients with WBC >100,000 may have falsely elevated Potassium levels. ??For accurate Potassium quantification in these patients send serum separator tube (gold top) for subsequent determinations. ??Contact the Clinical Chemistry Laboratory if there are any questions. Chloride 99 98 - 107 mmol/L [facility] Carbon Dioxide 27 22 - 31 mmol/L [facility] Anion Gap 12 5 - 15 mmol/L [facility] Calcium 8.5 8.5 - 10.5 mg/dL [facility] Est Glomerular Filtration Rate 17(L) >=60 mL/min/1. 73 m?? [facility] Comment: The eGFR was calculated using the CKD-EPI equation. As with all creatinine based estimates of kidney function, eGFR values calculated with the CKD-EPI equation are not accurate in patients with acute kidney failure, extremes of body mass or the acutely ill. [email or web address] eGFR 20(L) >=60 mL/min/1. 73 m?? [facility] Comment: The eGFR was calculated using the CKD-EPI equation. As with all creatinine based estimates of kidney function, eGFR values calculated with the CKD-EPI equation are not accurate in patients with acute kidney failure, extremes of body mass or the acutely ill. [email or web address] Blood specimen (specimen) 03/08/2019 5:10 AM EDT 03/08/2019 5:24 AM EDT Narrative Resulting Agency Comment Spec In Lab Simón Romero MD CHEMISTRY ORDERABLES [facility] [place] [address] * POCT Glucose (03/08/2019 5:09 AM EDT) Glucose, POC 152 65 - 199 mg/dL [facility] Comment: Supplemental ranges: <140 mg/dL before meals <180 mg/dL all other times of the day Blood specimen (specimen) 03/08/2019 5:09 AM EDT 03/08/2019 5:09 AM EDT Rodrigue Vargas MD POINT OF CARE TEST ORDERABLES [facility] [place] [address] * MRI Angiogram Neck wwo Contrast (Generic) (03/07/2019 10:19 PM EDT) Anatomical Region Laterality Modality Neck Magnetic Resonan ce Impressions 03/08/2019 9:28 AM EDT 1. No evidence of infarct or other acute intracranial abnormality. 2. No focal vascular stenosis or occlusion. Thank you for letting us participate in the care of this patient. For questions regarding this report, please contact the number below. ? Narrative 03/08/2019 9:28 AM EDT EXAMINATION: MRI ANGIOGRAM HEAD WO CONTRAST (GENERIC), MRI BRAIN WO CONTRAST, MRI ANGIOGRAM NECK WWO CONTRAST (GENERIC) CLINICAL HISTORY: Right sided numbness and tingling for 2-3 days with history of diabetes, htn TECHNIQUE: MRA of the head performed without contrast. 3-D MIP reconstructions were created. MR of the brain performed without contrast. MR a of the neck performed prior to and following intravenous administration of 20 mL Dotarem COMPARISON: Head CT 03/06/2019 FINDINGS: MR brain: The ventricles are normal in size and contour. There is no restricted diffusion to suggest acute infarct. There are areas of T2 signal alteration in the white matter posterior hemispheres, a nonspecific finding typically treated to small vessel ischemic change. No intracranial mass, mass effect, or shift. Posterior fossa structures are normal. Skull base, and pituitary are normal. MRA [place]: Intracranial internal carotid arteries are normal in caliber. MCA, YAMILETH, and visualized branches are unremarkable. The intradural vertebral arteries, the basilar artery, and posterior cerebral arteries are normal. MRA NECK: Ukew-bk-jdcffu images demonstrate normal antegrade flow in both carotid and in both vertebral arteries. The aortic arch is normal. Common carotid arteries, carotid bifurcation, and cervical internal carotid arteries are normal. The cervical vertebral arteries are normal in caliber throughout. Procedure Note Glynn Pichardo MD - 03/08/2019 EXAMINATION: MRI ANGIOGRAM HEAD WO CONTRAST (GENERIC), MRI BRAIN WOCONTRAST, MRI ANGIOGRAM NECK WWO CONTRAST (GENERIC) CLINICAL HISTORY: Right sided numbness and tingling for 2-3 days withhistory of diabetes, htn TECHNIQUE: MRA of the head performed without contrast. 3-D MIP reconstructions were created. MR of the brain performed without contrast. MR a of the neckperformed prior to and following intravenous administration of 20 mL Dotarem COMPARISON: Head CT 03/06/2019 FINDINGS: MR brain: The ventricles are normal in size and contour. There is norestricted diffusion to suggest acute infarct. There are areas of T2 signalalteration in the white matter posterior hemispheres, a nonspecific finding typicallytreated to small vessel ischemic change. No intracranial mass, mass effect, orshift. Posterior fossa structures are normal. Skull base, and pituitary arenormal. MRA [place]: Intracranial internal carotid arteries are normalin caliber. MCA, YAMILETH, and visualized branches are unremarkable. Theintradural vertebral arteries, the basilar artery, and posterior cerebral arteriesare normal. MRA NECK: Niid-dv-euyuss images demonstrate normal antegrade flow inboth carotid and in both vertebral arteries. The aortic arch is normal.Common carotid arteries, carotid bifurcation, and cervical internal carotidarteries are normal. The cervical vertebral arteries are normal in caliberthroughout. IMPRESSION 1. No evidence of infarct or other acute intracranial abnormality. 2. No focal vascular stenosis or occlusion. Thank you for letting us participate in the care of this patient. Forquestions regarding this report, please contact the number below. Simón Romero MD [facility]ek MRI ORDERABLES * MRI Brain wo Contrast (03/07/2019 10:19 PM EDT) Anatomical Region Laterality Modality Head Magnetic Resonan ce Impressions 03/08/2019 9:28 AM EDT 1. No evidence of infarct or other acute intracranial abnormality. 2. No focal vascular stenosis or occlusion. Thank you for letting us participate in the care of this patient. For questions regarding this report, please contact the number below. ? Narrative 03/08/2019 9:28 AM EDT EXAMINATION: MRI ANGIOGRAM HEAD WO CONTRAST (GENERIC), MRI BRAIN WO CONTRAST, MRI ANGIOGRAM NECK WWO CONTRAST (GENERIC) CLINICAL HISTORY: Right sided numbness and tingling for 2-3 days with history of diabetes, htn TECHNIQUE: MRA of the head performed without contrast. 3-D MIP reconstructions were created. MR of the brain performed without contrast. MR a of the neck performed prior to and following intravenous administration of 20 mL Dotarem COMPARISON: Head CT 03/06/2019 FINDINGS: MR brain: The ventricles are normal in size and contour. There is no restricted diffusion to suggest acute infarct. There are areas of T2 signal alteration in the white matter posterior hemispheres, a nonspecific finding typically treated to small vessel ischemic change. No intracranial mass, mass effect, or shift. Posterior fossa structures are normal. Skull base, and pituitary are normal. MRA [place]: Intracranial internal carotid arteries are normal in caliber. MCA, YAMILETH, and visualized branches are unremarkable. The intradural vertebral arteries, the basilar artery, and posterior cerebral arteries are normal. MRA NECK: Hidk-nl-oxrsfq images demonstrate normal antegrade flow in both carotid and in both vertebral arteries. The aortic arch is normal. Common carotid arteries, carotid bifurcation, and cervical internal carotid arteries are normal. The cervical vertebral arteries are normal in caliber throughout. Procedure Note Glynn Pichardo MD - 03/08/2019 EXAMINATION: MRI ANGIOGRAM HEAD WO CONTRAST (GENERIC), MRI BRAIN WOCONTRAST, MRI ANGIOGRAM NECK WWO CONTRAST (GENERIC) CLINICAL HISTORY: Right sided numbness and tingling for 2-3 days withhistory of diabetes, htn TECHNIQUE: MRA of the head performed without contrast. 3-D MIP reconstructions were created. MR of the brain performed without contrast. MR a of the neckperformed prior to and following intravenous administration of 20 mL Dotarem COMPARISON: Head CT 03/06/2019 FINDINGS: MR brain: The ventricles are normal in size and contour. There is norestricted diffusion to suggest acute infarct. There are areas of T2 signalalteration in the white matter posterior hemispheres, a nonspecific finding typicallytreated to small vessel ischemic change. No intracranial mass, mass effect, orshift. Posterior fossa structures are normal. Skull base, and pituitary arenormal. MRA [place]: Intracranial internal carotid arteries are normalin caliber. MCA, YAMILETH, and visualized branches are unremarkable. Theintradural vertebral arteries, the basilar artery, and posterior cerebral arteriesare normal. MRA NECK: Eksz-si-qyyykn images demonstrate normal antegrade flow inboth carotid and in both vertebral arteries. The aortic arch is normal.Common carotid arteries, carotid bifurcation, and cervical internal carotidarteries are normal. The cervical vertebral arteries are normal in caliberthroughout. IMPRESSION 1. No evidence of infarct or other acute intracranial abnormality. 2. No focal vascular stenosis or occlusion. Thank you for letting us participate in the care of this patient. Forquestions regarding this report, please contact the number below. Simón Romero MD G MRI ORDERABLES * MRI Angiogram Head wo Contrast (Generic) (03/07/2019 10:19 PM EDT) Anatomical Region Laterality Modality Head Magnetic Resonan ce Impressions 03/08/2019 9:28 AM EDT 1. No evidence of infarct or other acute intracranial abnormality. 2. No focal vascular stenosis or occlusion. Thank you for letting us participate in the care of this patient. For questions regarding this report, please contact the number below. ? Narrative 03/08/2019 9:28 AM EDT EXAMINATION: MRI ANGIOGRAM HEAD WO CONTRAST (GENERIC), MRI BRAIN WO CONTRAST, MRI ANGIOGRAM NECK WWO CONTRAST (GENERIC) CLINICAL HISTORY: Right sided numbness and tingling for 2-3 days with history of diabetes, htn TECHNIQUE: MRA of the head performed without contrast. 3-D MIP reconstructions were created. MR of the brain performed without contrast. MR a of the neck performed prior to and following intravenous administration of 20 mL Dotarem COMPARISON: Head CT 03/06/2019 FINDINGS: MR brain: The ventricles are normal in size and contour. There is no restricted diffusion to suggest acute infarct. There are areas of T2 signal alteration in the white matter posterior hemispheres, a nonspecific finding typically treated to small vessel ischemic change. No intracranial mass, mass effect, or shift. Posterior fossa structures are normal. Skull base, and pituitary are normal. MRA [place]: Intracranial internal carotid arteries are normal in caliber. MCA, YAMILETH, and visualized branches are unremarkable. The intradural vertebral arteries, the basilar artery, and posterior cerebral arteries are normal. MRA NECK: Biod-gu-kwfann images demonstrate normal antegrade flow in both carotid and in both vertebral arteries. The aortic arch is normal. Common carotid arteries, carotid bifurcation, and cervical internal carotid arteries are normal. The cervical vertebral arteries are normal in caliber throughout. Procedure Note Glynn Pichardo MD - 03/08/2019 EXAMINATION: MRI ANGIOGRAM HEAD WO CONTRAST (GENERIC), MRI BRAIN WOCONTRAST, MRI ANGIOGRAM NECK WWO CONTRAST (GENERIC) CLINICAL HISTORY: Right sided numbness and tingling for 2-3 days withhistory of diabetes, htn TECHNIQUE: MRA of the head performed without contrast. 3-D MIP reconstructions were created. MR of the brain performed without contrast. MR a of the neckperformed prior to and following intravenous administration of 20 mL Dotarem COMPARISON: Head CT 03/06/2019 FINDINGS: MR brain: The ventricles are normal in size and contour. There is norestricted diffusion to suggest acute infarct. There are areas of T2 signalalteration in the white matter posterior hemispheres, a nonspecific finding typicallytreated to small vessel ischemic change. No intracranial mass, mass effect, orshift. Posterior fossa structures are normal. Skull base, and pituitary arenormal. MRA [place]: Intracranial internal carotid arteries are normalin caliber. MCA, YAMILETH, and visualized branches are unremarkable. Theintradural vertebral arteries, the basilar artery, and posterior cerebral arteriesare normal. MRA NECK: Tohr-un-jqwxxl images demonstrate normal antegrade flow inboth carotid and in both vertebral arteries. The aortic arch is normal.Common carotid arteries, carotid bifurcation, and cervical internal carotidarteries are normal. The cervical vertebral arteries are normal in caliberthroughout. IMPRESSION 1. No evidence of infarct or other acute intracranial abnormality. 2. No focal vascular stenosis or occlusion. Thank you for letting us participate in the care of this patient. Forquestions regarding this report, please contact the number below. Simón Romero MD IMG MRI ORDERABLES * ECHO COMPLETE W CONTRAST (03/07/2019 10:27 AM EDT) EF 69 HEARTLAB SYSTEM Anatomical Region Laterality Modality Other 03/07/2019 Narrative 03/07/2019 10:36 AM EDT Procedure: ?Transthoracic Echocardiogram Patient: ?CHAD Gardienr ?(Age): 1965(53y) Med Rec#: ? [id number] ?Sex: ?M ? Site Loc: ? [facility] ?Ht / Wt: ??177(cm)/98(kg) Pt. Loc: ?Adult Floor ? BSA: ?2.15 Study Date: ?? 03/07/2019 ?Pt. Type: Inpatient Tape: ? Referring: Simón Romero Reading: Rodrigue Cooper ([id number]) Psychotherapist Counselor: Danya Hilario Diagnosis: *Essential (primary) hypertension (I10) *1 vial Optison used to enhance apical endocardial borders BP: ? 152/78 SUMMARY: 1. There is normal global left ventricular systolic function. ??The quantitative left ventricular ejection fraction by biplane [...] See remainder of report for additional findings. Findings ? : Study Quality: ? Adequate Left Ventricle: ? The left ventricular chamber size is normal. ?Left ventricular wall thickness is normal. ?There is no evidence of LVOT obstruction. ?No ventricular septal defect is visualized. ?There is normal global left ventricular systolic function. ?The quantitative left ventricular ejection fraction by biplane Patel's method is 69%. ?There are no left ventricular segmental wall motion abnormalities. ?Doppler assessment is consistent with normal left sided filling pressure. Left Atrium: ? The left atrium is normal in size. ?There is no evidence of a patent foramen ovale by either color Doppler or agitated saline injection. Right Ventricle: ? The right ventricle is mildly dilated. ?Right ventricular global systolic function is normal. ?Pulmonary artery hypertension could not be assessed due to inadequate tricuspid regurgitation jet. Right Atrium: ? The right atrium appears normal. ?The right atrium is mildly dilated. Aortic Valve: ? The aortic valve is trileaflet. The leaflets are thin with normal excursion. There is no aortic stenosis or regurgitation present. Mitral Valve: ? The mitral valve appears normal in structure and function. ?There is no evidence of mitral valve leaflet prolapse. ?There is trace mitral regurgitation present. Tricuspid Valve: ? The tricuspid valve appears normal in structure and function. ?There is trace tricuspid regurgitation present. Pulmonic Valve: ? The pulmonic valve appears normal in structure and function. Pericardium: ? The pericardium appears normal and there is no evidence of a pericardial effusion. Aorta: ? There is mild dilatation of the aortic root. ?The ascending aorta is normal in size. ?There is no evidence of coarctation of the aorta. Pulmonary Artery: ? The main pulmonary artery appears normal. Venous: ? The inferior vena cava appears normal in size. ?There is a greater than 50% respiratory change in the inferior vena cava dimension. Misc: ? See remainder of report for additional findings. ?Two-dimensional echo, spectral Doppler and color Doppler performed. ?Optison contrast (one 3 ml vial) was used to enhance endocardial definition. Excess contrast was discarded. Chambers 2D ?Value ?Units (Range) ? RVIDd ??Base ? 4.5 ?cm ? RVIDd ??Mid (AP) ? 3.2 ?cm ? IVSd (2D) ? 1 ?cm ? LVPWd (2D) ?1 ?cm ? IVS:LVPW ratio (2D) 1 ?ratio ? RWT (2D) ?0.4 ?ratio ? RWT PW (2D) ? 0.4 ?ratio ? LVIDd (2D) ?4.9 ?cm ? LVIDs (2D) ?3.5 ?cm ? LVIDd (2D) index ?2.3 ?cm/m2 ? LVIDs (2D) index ?1.6 ?cm/m2 ? LV FS (2D) ?29 ? % ? EF Teichholz (2D) ?? 56 ? % ? Ao root diameter (2D3.7 ?cm (2.1 - 3.6) ? Ascending Ao ?3.4 ?cm (2 - 3.5) ? Volumes/Mass ?Value ?Units (Range) ? LA Area 4 CH ?19 ? cm2 (<21) ? LA ESV BP (A/L) inde30.6 ? ml/m2 ? RA AREA 4CH ? 18 ? cm2 ? LV ESV SP 4CH (MOD) 74.3 ? ml ? LV ESV SP 2CH (MOD) 68.5 ? ml ? LV EDV BP ? 241.5 ?ml ? LV ESV BP ? 74 ? ml ? LV EDV BP index ? 112.3 ?ml/m2 ? LV ESV BP index ? 34.4 ? ml/m2 ? BP EF (MOD) ? 69 ? % ? LV mass (2D) ?176.7 ?g ? LV mass (2D) index ??82.2 ? g/m2 ? Diastolic/Systolic Function ?Value ?Units (Range) ? MV E-wave Vmax ?1 ?m/sec ? MV deceleration lmbp173.6 ?msec ? MV A-wave Vmax ?1.2 ?m/sec ? MV E:A ratio ?0.9 ?ratio ? LV septal e' Vmax ?? 0.1 ?m/sec ? LV lateral e' Vmax ??0.1 ?m/sec ? LV average e' Vmax ??0.1 ?m/sec ? LV E:e' septal ratio12.9 ? ratio ? LV E:e' lateral rati10.3 ? ratio ? LV average E:e' rati11.5 ? ratio ? Tricuspid Valve ?Value ?Units (Range) ? TAPSE ? 2.5 ?cm ? RV lateral s' Vmax ??0.2 ?m/sec ? Wall Motion: Segment Name ?Rest ? Base-Anteroseptal ?? Normal ? Base-Anterior ? Normal ? Base-Anterolateral ??Normal ? Base-Posterolateral Normal ? Base-Inferior ? Normal ? Base-Inferoseptal ?? Normal ? Mid-Anteroseptal ?Normal ? Mid-Anterior ?Normal ? Mid-Anterolateral ?? Normal ? Mid-Posterolateral ??Normal ? Mid-Inferior ?Normal ? Mid-Inferoseptal ?Normal ? [place]-Septal ? Normal ? [place]-Anterior ? Normal ? [place]-Lateral ?Normal ? [place]-Inferior ? Normal ? [place]-Tip ?Normal ? This report has been electronically signed by: Rodrigue Cooper M.D. ? 03/07/2019 10:35:38 Images reviewed and interpretation verified [facility] Procedure Note Rodrigue Cooper MD - 03/07/2019 Procedure: Transthoracic Echocardiogram Patient: CHAD LEZAMA(Age): 1965(53y) Med Rec#: [id number] Sex: M Site Loc: [facility] Ht / Wt: 177(cm)/98(kg) Pt. Loc: Adult Floor BSA: 2.15 Study Date: 03/07/2019 Pt. Type: Inpatient Tape: Referring: Simón Romero Reading: Rodrigue Cooper ([id number]) Psychotherapist Counselor: Danya Hilario Diagnosis: *Essential (primary) hypertension (I10) *1 vial Optison used to enhance apical endocardial borders BP: 152/78 SUMMARY: 1. There is normal global left [...] See remainder of report for additional findings. Findings : Study Quality: Adequate Left Ventricle: The left ventricular chamber size is normal. Left ventricular wall thickness is normal. There is no evidence of LVOT obstruction. No ventricular septal defect is visualized. There is normal global left ventricular systolic function. The quantitative left ventricular ejection fraction by biplane Patel's method is 69%. There are no left ventricular segmental wall motion abnormalities. Doppler assessment is consistent with normal left sided filling pressure. Left Atrium: The left atrium is normal in size. There is no evidence of a patent foramen ovale by either color Doppler or agitated saline injection. Right Ventricle: The right ventricle is mildly dilated. Right ventricular global systolic function is normal. Pulmonary artery hypertension could not be assessed due to inadequate tricuspid regurgitation jet. Right Atrium: The right atrium appears normal. The right atrium is mildly dilated. Aortic Valve: The aortic valve is trileaflet. The leaflets are thin with normal excursion. There is no aortic stenosis or regurgitation present. Mitral Valve: The mitral valve appears normal in structure and function. There is no evidence of mitral valve leaflet prolapse. There is trace mitral regurgitation present. Tricuspid Valve: The tricuspid valve appears normal in structure and function. There is trace tricuspid regurgitation present. Pulmonic Valve: The pulmonic valve appears normal in structure and function. Pericardium: The pericardium appears normal and there is no evidence of a pericardial effusion. Aorta: There is mild dilatation of the aortic root. The ascending aorta is normal in size. There is no evidence of coarctation of the aorta. Pulmonary Artery: The main pulmonary artery appears normal. Venous: The inferior vena cava appears normal in size. There is a greater than 50% respiratory change in the inferior vena cava dimension. Misc: See remainder of report for additional findings. Two-dimensional echo, spectral Doppler and color Doppler performed. Optison contrast (one 3 ml vial) was used to enhance endocardial definition. Excess contrast was discarded. Chambers 2D Value Units (Range) RVIDd Base 4.5 cm RVIDd Mid (AP) 3.2 cm IVSd (2D) 1 cm LVPWd (2D) 1 cm IVS:LVPW ratio (2D) 1 ratio RWT (2D) 0.4 ratio RWT PW (2D) 0.4 ratio LVIDd (2D) 4.9 cm LVIDs (2D) 3.5 cm LVIDd (2D) index 2.3 cm/m2 LVIDs (2D) index 1.6 cm/m2 LV FS (2D) 29 % EF Teichholz (2D) 56 % Ao root diameter (2D3.7 cm (2.1 - 3.6) Ascending Ao 3.4 cm (2 - 3.5) Volumes/Mass Value Units (Range) LA Area 4 CH 19 cm2 (<21) LA ESV BP (A/L) inde30.6 ml/m2 RA AREA 4CH 18 cm2 LV ESV SP 4CH (MOD) 74.3 ml LV ESV SP 2CH (MOD) 68.5 ml LV EDV BP 241.5 ml LV ESV BP 74 ml LV EDV BP index 112.3 ml/m2 LV ESV BP index 34.4 ml/m2 BP EF (MOD) 69 % LV mass (2D) 176.7 g LV mass (2D) index 82.2 g/m2 Diastolic/Systolic Function Value Units (Range) MV E-wave Vmax 1 m/sec MV deceleration igcn683.6 msec MV A-wave Vmax 1.2 m/sec MV E:A ratio 0.9 ratio LV septal e' Vmax 0.1 m/sec LV lateral e' Vmax 0.1 m/sec LV average e' Vmax 0.1 m/sec LV E:e' septal ratio12.9 ratio LV E:e' lateral rati10.3 ratio LV average E:e' rati11.5 ratio Tricuspid Valve Value Units (Range) TAPSE 2.5 cm RV lateral s' Vmax 0.2 m/sec Wall Motion: Segment Name Rest Base-Anteroseptal Normal Base-Anterior Normal Base-Anterolateral Normal Base-Posterolateral Normal Base-Inferior Normal Base-Inferoseptal Normal Mid-Anteroseptal Normal Mid-Anterior Normal Mid-Anterolateral Normal Mid-Posterolateral Normal Mid-Inferior Normal Mid-Inferoseptal Normal [place]-Septal Normal [place]-Anterior Normal [place]-Lateral Normal [place]-Inferior Normal [place]-Tip Normal This report has been electronically signed by: Rodrigue Cooper M.D. 03/07/2019 10:35:38 Images reviewed and interpretation verified [facility] Ul[facility]ound [facility] Simón Romero MD ECHO ORDERABLES * (ABNORMAL) POCT Glucose (03/07/2019 9:39 AM EDT) Glucose, POC 314(H) 65 - 199 mg/dL [facility] Comment: Supplemental ranges: <140 mg/dL before meals <180 mg/dL all other times of the day Blood specimen (specimen) 03/07/2019 9:39 AM EDT 03/07/2019 9:39 AM EDT Rodrigue Vargas MD POINT OF CARE TEST ORDERABLES Performing Organization Address City/[facility]/ZIP Co de Phone Number [facility] [place] [address] * Urinalysis Microscopic Exam (03/07/2019 8:02 AM EDT) [facility] RBC, Urine 3 0 - 3 /HPF [facility] WBC, Urine 1 0 - 3 /HPF [facility] Urine specimen obtained by clean catch procedure (specimen) 03/07/2019 8:02 AM EDT 03/07/2019 8:17 AM EDT Narrative Resulting Agency Comment Spec In Lab Donte Leon MD URINE ORDERABLE S [facility] [place] [address] * (ABNORMAL) Urinalysis with reflex Culture (03/07/2019 8:02 AM EDT) Glucose, Urine Dipstick >=500(Critic al) Negative mg/dL [facility] Comment: Urinalysis result NOT critical without a combination of Glucose greater than or equal to 500mg/dl AND Ketones greater than or equal to 80mg/dl. Protein, Urine Dipstick >=500(A) Negative mg/dL [facility] Bilirubin, Urine Dipstick Negative Negative mg/dL [facility] Comment: Clinical correlation required for positive Urine Bilirubin results as false positive may occur with some drugs and drug related products. If a false positive is suspected a serum total bilirubin should be considered if clinically indicated. Urobilinogen, Urine Dipstick Normal Normal mg/dL [facility] pH, Urn (dipstick) 8.0 5.0 - 8.0 [facility] Blood, Urine Dipstick Negative Negative mg/dL [facility] Ketone, Urine Dipstick Negative Negative mg/dL [facility] Nitrite, Urine Dipstick Negative Negative [facility] Leukocytes, Urine Dipstick Negative Negative [facility] Appearance, Urine Dipstick Clear Clear [facility] Specific [place] Urine Automated 1.010 1.002 - 1.030 [facility] Color, Urine Dipstick Straw Yellow [facility] Reflex to Culture No [facility] Urine specimen obtained by clean catch procedure (specimen) 03/07/2019 8:02 AM EDT 03/07/2019 8:17 AM EDT Narrative Resulting Agency Comment Spec In Lab Simón Romero MD URINE ORDERABLES [facility] [place] [address] * (ABNORMAL) POCT Glucose (03/07/2019 7:36 AM EDT) Glucose, POC 322(H) 65 - 199 mg/dL [facility] Comment: Supplemental ranges: <140 mg/dL before meals <180 mg/dL all other times of the day Blood specimen (specimen) 03/07/2019 7:36 AM EDT 03/07/2019 7:36 AM EDT Simón Romero MD POINT OF CARE TEST O RDERABLES Performing Organization Address City/[facility]/ZIP Co de Phone Number [facility] [place] [address] * Gold Tube HOLD (03/07/2019 5:04 AM EDT) Gold Hold Sample in lab. [facility] Blood specimen (specimen) Venous Draw / Unknown 03/07/2019 5:04 AM EDT 03/07/2019 5:28 AM EDT Donte Leon MD CHEMISTRY ORDER FRANSISCO Performing Organization Address [facility] Co de Phone Number [facility] [place] [address] * (ABNORMAL) BMP w/fasting Glucose (03/07/2019 5:04 AM EDT) Glucose Fasting 331(H) 65 - 99 mg/dL [facility] Comment: ?Fasting* Glucose Interpretive Criteria Normal ?65-99 mg/dL Impaired Fasting glucose ?100-125 mg/dL Consistent with Diabetes Mellitus ? >or= 126 mg/dL *Fasting is defined as no caloric intake for at least 8 hours In the absence of unequivocal hyperglycemia a plasma glucose value of >or= 126 mg/dL should be repeated on a subsequent day. Diagnosis and Classification of Diabetes Mellitus, Position Statement from the [place] [employer]. ??Diabetes Care, Volume 33, Supplement 1, Oct 2009 Blood Urea Nitrogen 44(H) 10 - 20 mg/dL [facility] Creatinine 5.07(H) 0.80 - 1.50 mg/dL [facility] Sodium 137 135 - 145 mmol/L [facility] Potassium 5.0 3.5 - 5.0 mmol/L [facility] Comment: Please note: ??Patients with WBC >100,000 may have falsely elevated Potassium levels. ??For accurate Potassium quantification in these patients send serum separator tube (gold top) for subsequent determinations. ??Contact the Clinical Chemistry Laboratory if there are any questions. Chloride 96(L) 98 - 107 mmol/L [facility] Carbon Dioxide 26 22 - 31 mmol/L [facility] Anion Gap 15 5 - 15 mmol/L [facility] Calcium 8.5 8.5 - 10.5 mg/dL [facility] Est Glomerular Filtration Rate 12(L) >=60 mL/min/1. 73 m?? [facility] Comment: The eGFR was calculated using the CKD-EPI equation. As with all creatinine based estimates of kidney function, eGFR values calculated with the CKD-EPI equation are not accurate in patients with acute kidney failure, extremes of body mass or the acutely ill. [email or web address] eGFR 14(L) >=60 mL/min/1. 73 m?? [facility] Comment: The eGFR was calculated using the CKD-EPI equation. As with all creatinine based estimates of kidney function, eGFR values calculated with the CKD-EPI equation are not accurate in patients with acute kidney failure, extremes of body mass or the acutely ill. [email or web address] Blood specimen (specimen) 03/07/2019 5:04 AM EDT 03/07/2019 5:28 AM EDT Narrative Resulting Agency Comment Spec In Lab Donte Leon MD CHEMISTRY ORDER FRANSISCO [facility] [place] [address] * Prothrombin Time (03/07/2019 5:04 AM EDT) Prothrombin Time 10.7 9.4 - 12.5 sec [facility] International Normalization Ratio 0.9 [facility] Comment: An INR <2.0 indicates [...] be appropriate depending on clinical circumstances. Blood specimen (specimen) 03/07/2019 5:04 AM EDT 03/07/2019 5:27 AM EDT Narrative Resulting Agency Comment Spec In Lab Simón Romero MD HEMATOLOGY ORDERABLE S Performing Organization Address [facility] Co de Phone Number [facility] [place] [address] * APTT (03/07/2019 5:04 AM EDT) Partial Thromboplastin Time 30 25 - 37 sec [facility] Comment: The PTT is NOT appropriate for heparin monitoring. Use the Anti-Xa level for heparin monitoring (HEP UFH) or LMWH monitoring (HEP LMW). A PTT less than 37 seconds generally indicates adequate hemostasis. Blood specimen (specimen) 03/07/2019 5:04 AM EDT 03/07/2019 5:27 AM EDT Narrative Resulting Agency Comment Spec In Lab Simón Romero MD HEMATOLOGY ORDERABLE S Performing Organization Address [facility] de Phone Number [facility] [place] [address] * Differential, Automated (03/07/2019 5:04 AM EDT) Neutrophil % 44.6 % [facility] Neutrophil Absolute 2.43 1.70 - 6.10 x10(3)/[facility] LABORATORY Lymph % 38.6 % [facility] Lymphocytes Abs 2.1 0.9 - 3.2 x10(3)/[facility] LABORATORY Monocyte % 11.9 % [facility] Monocyte Abs 0.6 0.3 - 0.9 x10(3)/[facility] LABORATORY Eos % 4.2 % [facility] Eosinophils Abs 0.2 0.0 - 0.4 x10(3)/[facility] LABORATORY Basophil % 0.5 % [facility] Baso Absolute 0.0 0.0 - 0.1 x10(3)/[facility] LABORATORY Immature Gran % 0.20 % [facility] Comment: Immature granulocytes(IG's)percentage and absolute count will include metamyelocytes, myelocytes, and promyelocytes. Blood smears from CBCs yielding IG's will be scanned manually for concordance. If this scan disagrees with the automated IG or if promyelocytes are noted, a manual differential will be performed. Immature Gran Absolute 0.01 0.00 - 0.04 x10(3)/[facility] LABORATORY Blood specimen (specimen) 03/07/2019 5:04 AM EDT 03/07/2019 5:28 AM EDT Narrative Resulting Agency Comment Spec In Lab Donte Leon MD HEMATOLOGY [place]EF [place] [facility] [place] [address] * (ABNORMAL) Hemogram (03/07/2019 5:04 AM EDT) White Blood Cell 5.5 4.0 - 9.5 x10(3)/[facility] LABORATORY Red Blood Cell 3.41(L) 4.58 - 5.54 x10(6)/ L [facility] Hemoglobin 10.7(L) 13.7 - 16.5 gm/dL [facility] Hematocrit 33.8(L) 40.5 - 48.5 % [facility] Mean Cell Volume 99.1(H) 82.9 - 93.1 fL [facility] Comment: This result has been called to JULI HINSON by Melissa Green on 03 07 2019 at 0606, and has been read back. Mean Cell Hemoglobin 31.4 27.5 - 32.1 pg [facility] Mean Cell Hemoglobin Concentration 31.7(L) 32.0 - 35.7 gm/dL [facility] Platelet 238 145 - 357 x10(3)/mc L [facility] RDW Standard Deviation 63.9(H) 36.0 - 45.0 fL [facility] RDW coefficient of variation 18.0(H) 11.4 - 13.8 % [facility] Mean Platelet Volume 11.8 7.6 - 12.9 fL [facility] NRBC% auto 0.0 % [facility] NRBC Absolute 0.000 0.000 - 0.000 x10(3)/mc L [facility] Blood specimen (specimen) 03/07/2019 5:04 AM EDT 03/07/2019 5:28 AM EDT Narrative Resulting Agency Comment Spec In Lab Donte Leon [facility] [place] [address] * (ABNORMAL) Hepatic Function Panel (03/07/2019 5:04 AM EDT) Protein, Total 6.1 6.1 - 8.0 gm/dL [facility] Albumin 3.3 3.2 - 5.2 gm/dL [facility] Aspartate Aminotransferase 21 0 - 39 unit/L [facility] Alanine Aminotransferase 21 0 - 55 unit/L [facility] Alkaline Phosphatase 133(H) 40 - 120 unit/L [facility] Bilirubin, Total <0.2(L) 0.2 - 1.3 mg/dL [facility] Bilirubin, Direct 0.1 0.0 - 0.3 mg/dL [facility] Blood specimen (specimen) 03/07/2019 5:04 AM EDT 03/07/2019 5:28 AM EDT Narrative Resulting Agency Comment Spec In Lab Simón Romero MD CHEMISTRY ORDERABLES Performing Organization Address [facility] Co de Phone Number [facility] [place] [address] * (ABNORMAL) Phosphorus (03/07/2019 5:04 AM EDT) Phosphorus 5.8(H) 2.5 - 4.5 mg/dL [facility] Blood specimen (specimen) 03/07/2019 5:04 AM EDT 03/07/2019 5:28 AM EDT Narrative Resulting Agency Comment Spec In Lab Simón Romero MD CHEMISTRY ORDERABLES Performing Organization Address [facility] Co de Phone Number [facility] [place] [address] * Magnesium (03/07/2019 5:04 AM EDT) Magnesium 1.04 0.69 - 1.07 mmol/L [facility] Blood specimen (specimen) 03/07/2019 5:04 AM EDT 03/07/2019 5:28 AM EDT Narrative Resulting Agency Comment Spec In Lab Simón Romero MD CHEMISTRY ORDERABLES Performing Organization Address [facility] Co de Phone Number [facility] [place] [address] * Triglyceride (03/07/2019 5:04 AM EDT) Triglyceride 323 mg/dL [facility] Comment: Average Risk/Lower Risk: <150 mg/dL Borderline High Risk: 150-199 mg/dL High Risk: 200-499 mg/dL Very High Risk: >ub=952 mg/dL Blood specimen (specimen) 03/07/2019 5:04 AM EDT 03/07/2019 5:28 AM EDT Narrative Resulting Agency Comment Spec In Lab Simón Romero MD CHEMISTRY ORDERABLES Performing Organization Address City/[facility]/ZIP Co de Phone Number [facility] [place] [address] * HDL/Cholesterol Profile (03/07/2019 5:04 AM EDT) Cholesterol, Total 269 mg/dL [facility] Comment: Lower Risk: <200 mg/dL Average Risk: 200-239 mg/dL Higher Risk: >ki=419 mg/dL HDL Cholesterol 46 mg/dL [facility] Comment: Males: ?? Higher Risk: <40 mg/dL Females: ?? HIgher Risk: <50 mg/dL Cholesterol/HDL Ratio 5.8 ratio [facility] Chol/HDL Interpretation See Note [facility] Comment: Lipid management should be guided by a patient? s ASCVD risk, goals and preferences. ACC/AHA Guidelines recommend high intensity statin if clinical ASCVD or LDL greater than or equal to 190 mg/dL. http://Nolio.com/TNM-EJA-[email or web address] Measure LDL if Total Cholesterol minus HDL Cholesterol is greater than 220 mg/dL. Adults aged 40-75 with LDL 70-189 mg/dL should have their 10 year ASCVD risk estimated with the ACC/AHA ASCVD risk production supply equipment tender http://tools.acc.org/TNWCA-Scho-Aahulwkwg/ Statin should be discussed if risk greater than or equal to 7.5% in non-diabetics. With diabetes, moderate intensity statin is recommended if risk less than 7.5%, high intensity if risk greater than or equal to 7.5%. Annual lipid monitoring on statins is not necessary. Lifestyle modification is a critical component of ASCVD risk reduction. Blood specimen (specimen) 03/07/2019 5:04 AM EDT 03/07/2019 5:28 AM EDT Narrative Resulting Agency Comment Spec In Lab Simón Romero MD CHEMISTRY ORDERABLES [facility] [place] [address] * LDL Cholesterol, Direct (03/07/2019 5:04 AM EDT) LDL Cholesterol, Direct 187 mg/dL [facility] Comment: Lowest Risk: <100 mg/dL Lower Risk: 100-129 mg/dL Borderline High Risk: 130-159 mg/dL High Risk: 160-189 mg/dL Very High Risk: >ep=586 mg/dL Blood specimen (specimen) 03/07/2019 5:04 AM EDT 03/07/2019 5:28 AM EDT Narrative Resulting Agency Comment Spec In Lab Simón Romero MD CHEMISTRY ORDERABLES [facility] [place] [address] * (ABNORMAL) Hemoglobin A1c (03/07/2019 5:04 AM EDT) [facility] Hemoglobin A1c 11.2(H) 4.3 - 5.6 % [facility] Comment: Reference Range: 4.3 - [...] Mellitus, Diabetes Care 2013; 36: Suppl. 1, C67-87 Estimated Average Glucose 275 mg/dL [facility] Comment: eAG equivalents for HbA1c percentages: HbA1c(%) ?eAG(mg/dL) 6.0 ?126 6.5 ?140 7.0 ?154 7.5 ?169 8.0 ?183 8.5 ?197 9.0 ?212 9.5 ?226 10.0 ? 240 Limitations: The eAG calculation has not been validated on women, individuals below 18 years old and above 70 years old, and individuals with hemoglobinopathies. Additional resources are available on the ADA website. [place] CURTIS, Jagruti J, Coy R, et al. ??Translating the A1C assay into estimated average glucose values. ??Diabetes Care 2008:31(8):1772-1837. Blood specimen (specimen) 03/07/2019 5:04 AM EDT 03/07/2019 5:28 AM EDT Narrative Resulting Agency Comment Spec In Lab Simón Romero MD CHEMISTRY ORDERABLES Performing Organization Address [facility] de Phone Number [facility] [place] [address] * (ABNORMAL) POCT Glucose (03/07/2019 4:59 AM EDT) Glucose, POC 325(H) 65 - 199 mg/dL [facility] Comment: Supplemental ranges: <140 mg/dL before meals <180 mg/dL all other times of the day Blood specimen (specimen) 03/07/2019 4:59 AM EDT 03/07/2019 4:59 AM EDT Simón Romero MD POINT OF CARE TEST O RDERABLES Performing Organization Address [facility] de Phone Number [facility] [place] [address] documented in this encounter Visit Diagnoses Diagnosis Right sided numbness Right sided numbness documented in this encounter Admitting Diagnoses Diagnosis Right sided numbness documented in this encounter Administered Medications Inactive Administered Medications - up to 3 most recent administrations Medication Order MAR Action Action Date Dose Rate Site acetaminophen (Tylenol) (32.02 mg/mL) oral liquid 975 mg 975 mg, Per G Tube, EVERY 6 HOURS PRN, Starting on Wed03/07/19 at 0302, Until Wed03/08/19 at 1501, Pain, Fever, pain or temperature greater than 100 degrees F (measured by mouth), Should be given concomitantly if other Analgesics are ordered., Routine acetaminophen (TYLENOL) suppository 975 mg 975 mg, Rectal, EVERY 6 HOURS PRN, Starting on Wed03/07/19 at 0302, Until Wed03/08/19 at 1501, Pain, Fever, pain or temperature greater than 100 degrees F (measured by mouth), Maximum dose of acetaminophen is 4000 mg from all sources in 24 hours., Routine acetaminophen (TYLENOL) tablet 975 mg 975 mg, Oral, EVERY 6 HOURS PRN, Starting on Wed03/07/19 at 0302, Until Wed03/08/19 at 1501, Pain, Fever, pain or temperature greater than 100 degrees F (measured by mouth), Maximum dose of acetaminophen is 4000 mg from all sources in 24 hours., Routine Given 03/08/2019 8:13 AM EDT 975 mg amLODIPine (NORVASC) tablet 10 mg 10 mg, Oral, DAILY, First dose on Wed03/07/19 at 0900, Until Discontinued, Routine Given 03/08/2019 8:13 AM EDT 10 mg Given 03/07/2019 8:15 AM EDT 10 mg aspirin chewable tablet 81 mg 81 mg, Oral, DAILY, First dose on Wed03/07/19 at 0900, Until Discontinued, Routine Given 03/08/2019 8:15 AM EDT 81 mg Given 03/07/2019 8:15 AM EDT 81 mg aspirin suppository 300 mg 300 mg, Rectal, DAILY, First dose on Wed03/07/19 at 0900, Until Discontinued, Routine atorvastatin (LIPITOR) tablet 40 mg 40 mg, Oral, EVERY EVENING, First dose on Wed03/08/19 at 1700, Until Discontinued, Routine dextrose 50% intravenous solution 25-50 mL 25-50 mL (12.5-25 g), Intravenous, EVERY 1 HOUR PRN, Starting on Wed03/07/19 at 0932, Until Wed03/08/19 at 1501, Low blood sugar, For BG 50-70 mg/dL: Oral treatment preferred:?? If able to drink, give 120 mL Juice or Regular (not diet) soda OR If NPO, give 15 gram glucose 40% oral gel massaged into buccal mucosa OR if unconscious or uncooperative, give 12.5 gram (25 mL) Dextrose 50% IV OR, if no IV access, give 1 mg Glucagon IM. For BG less than 50 mg/dL: Oral treatment preferred:?? If able to drink, give 240 mL Juice or Regular (not diet) soda OR If NPO, give 30 gram glucose 40% oral gel massaged in buccal mucosa OR if unconscious or uncooperative, give 25 gram (50 mL) Dextrose 50% IV OR, if no IV access, give 1 mg Glucagon IM. Recheck BG in 30 minutes. May repeat juice, gel, dextrose or glucagon once per episode. To avoid extravasation, push Dextrose 50% SLOWLY (3 mL over 1 minute) in a patent, running IV, preferably a central line. For persistent hypoglycemia, consider longer-acting treatment for the duration of the active insulin., Routine epoetin ken (EPOGEN;PROCRIT) injection 10,000 Units 10,000 Units, Intravenous, ONCE IN DIALYSIS PRN, 1 dose, Starting on Wed03/07/19 at 0929, Until Wed03/08/19 at 1501, Other, Dialysis (Intra-Procedure), Routine, What is the indication of use? End Stage Renal Disease (ESRD) on dialysis furosemide (LASIX) tablet 40 mg 40 mg, Oral, 2 TIMES DAILY, First dose on Wed03/07/19 at 0900, Until Discontinued, Routine Given 03/08/2019 8:14 AM EDT 40 mg Given 03/07/2019 8:25 PM EDT 40 mg Given 03/07/2019 8:15 AM EDT 40 mg gadoterate meglumine (DOTAREM) 0.5 mmol/mL (376.9 mg/mL) injection 0-100 mL 0-100 mL, Intravenous, ONCE PRN, 1 dose, Starting on Wed03/07/19 at 2139, Until Wed03/07/19 at 2210, Per Protocol, Radiology Contrast, Routine Given 03/07/2019 10:10 PM EDT 20 mL s glucagon (human recombinant) injection SolR 1 mg 1 mg, Intramuscular, EVERY 1 HOUR PRN, Starting on Wed03/07/19 at 0932, Until Wed03/08/19 at 1501, Low blood sugar, For BG 50-70 mg/dL: Oral treatment preferred:?? If able to drink, give 120 mL Juice or Regular (not diet) soda OR If NPO, give 15 gram glucose 40% oral gel massaged into buccal mucosa OR if unconscious or uncooperative, give 12.5 gram (25 mL) Dextrose 50% IV OR, if no IV access, give 1 mg Glucagon IM. For BG less than 50 mg/dL: Oral treatment preferred:?? If able to drink, give 240 mL Juice or Regular (not diet) soda OR If NPO, give 30 gram glucose 40% oral gel massaged in buccal mucosa OR if unconscious or uncooperative, give 25 gram (50 mL) Dextrose 50% IV OR, if no IV access, give 1 mg Glucagon IM. Recheck BG in 30 minutes. May repeat juice, gel, dextrose or glucagon once per episode. To avoid extravasation, push Dextrose 50% SLOWLY (3 mL over 1 minute) in a patent, running IV, preferably a central line. For persistent hypoglycemia, consider longer-acting treatment for the duration of the active insulin., Routine glucose (GLUTOSE) 40% oral gel 15-30 g, Buccal, EVERY 30 MIN PRN, Starting on Wed03/07/19 at 0932, Until Wed03/08/19 at 1501, Low blood sugar, For BG 50-70 mg/dL: Oral treatment preferred:?? If able to drink, give 120 mL Juice or Regular (not diet) soda OR If NPO, give 15 gram glucose 40% oral gel massaged into buccal mucosa OR if unconscious or uncooperative, give 12.5 gram (25 mL) Dextrose 50% IV OR, if no IV access, give 1 mg Glucagon IM. For BG less than 50 mg/dL: Oral treatment preferred:?? If able to drink, give 240 mL Juice or Regular (not diet) soda OR If NPO, give 30 gram glucose 40% oral gel massaged in buccal mucosa OR if unconscious or uncooperative, give 25 gram (50 mL) Dextrose 50% IV OR, if no IV access, give 1 mg Glucagon IM. Recheck BG in 30 minutes. May repeat juice, gel, dextrose or glucagon once per episode. To avoid extravasation, push Dextrose 50% SLOWLY (3 mL over 1 minute) in a patent, running IV, preferably a central line. For persistent hypoglycemia, consider longer-acting treatment for the duration of the active insulin. 1 tube contains 15 grams of glucose (net weight of tube = 37.5 grams., Routine heparin (Porcine) subcutaneous injection 5,000 Units 5,000 Units, Subcutaneous, EVERY 8 HOURS SCHEDULED, First dose on Wed03/07/19 at 0600, Until Discontinued, Routine Given 03/08/2019 5:13 AM EDT 5,000 Units Given 03/07/2019 10:28 PM EDT 5,000 Units Given 03/07/2019 5:14 AM EDT 5,000 Units insulin detemir U-100 (LEVEMIR) VIAL injection 30 Units 30 Units, Subcutaneous, NIGHTLY, First dose on Wed03/07/19 at 0330, Until Discontinued, Half of home dose while inpatient Given 03/07/2019 8:25 PM EDT 30 Units insulin lispro (HumaLOG) VIAL injection 0-10 Units 0-10 Units, Subcutaneous, 3 TIMES DAILY WITH MEALS, First dose on Wed03/07/19 at 1700, Until Discontinued, MEAL ASSOCIATED Give 1 unit for every 8 grams carbohydrate. Hold if not eating, Routine insulin lispro (HumaLOG) VIAL injection 0-6 Units 0-6 Units, Subcutaneous, EVERY 4 HOURS SCHEDULED, First dose (after last modification) on Wed03/07/19 at 1600, Until Discontinued, CORRECTION BOLUS Custom correction factor 20 BG 140 - 160 Give 1 units BG 161 - 180 Give 2 units BG 181 - 200 Give 3 units BG 201 - 220 Give 4 units BG 221 - 240 Give 5 units BG greater than 240, give 6 units and recheck BG in 2 hours. If BG remains GREATER THAN 240, GIVE 6 units (no more than two times) & call for new basal insulin orders. If less than 240 after two hours, give no insulin and resume prior schedule., Routine Given 03/08/2019 11:10 AM EDT 6 Units Given 03/07/2019 4:56 PM EDT 5 Units insulin lispro (HumaLOG) VIAL injection 1-4 Units 1-4 Units, Subcutaneous, EVERY 4 HOURS SCHEDULED, First dose on Wed03/07/19 at 0400, Until Discontinued, CORRECTION BOLUS Sensitive to insulin lean patient or total daily dose of all insulin needed to achieve glycemic control less than 30 units BG 140 - 160 Give 1 unit BG 161 - 200 Give 2 units BG 201 - 240 Give 3 units BG greater than 240, give 4 units and recheck BG in 2 hours. If less than 240 after two hours, give no insulin and resume prior schedule. If BG remains greater than 240, repeat 4 units (no more than three times) & call for new basal insulin orders. DO NOT hold if NPO, unless specifically told to do so., Routine Given 03/07/2019 7:43 AM EDT 4 Units Given 03/07/2019 5:14 AM EDT 4 Units insulin lispro (HumaLOG) VIAL injection 12 Units 12 Units, Subcutaneous, ONCE, 1 dose, On Wed03/07/19 at 1015, One time correction dose, Routine Given 03/07/2019 9:59 AM EDT 12 Units labetalol (NORMODYNE) tablet 100 mg 100 mg, Oral, 2 TIMES DAILY, First dose on Wed03/07/19 at 0900, Until Discontinued, Routine Given 03/08/2019 8:19 AM EDT 100 mg Given 03/07/2019 8:25 PM EDT 100 mg Given 03/07/2019 8:15 AM EDT 100 mg lidocaine (LIDODERM) 5 % patch 1 patch 1 patch, Transdermal, EVERY 24 HOURS, First dose on Wed03/08/19 at 0900, Until Discontinued, Apply patch(es) for 12 hours, and then remove for 12 hours, Routine Patch Applied 03/08/2019 8:19 AM EDT 1 patch 07- Back Lower (Left) lidocaine (LIDODERM) 5 %(700 mg/patch) Patch Removal Transdermal, EVERY 24 HOURS, First dose on Wed03/08/19 at 2100, Until Discontinued, Remove lidocaine 5 %(700 mg/patch) patch multivitamin with minerals (THERA-M) tablet 1 tablet 1 tablet, Oral, DAILY, First dose on Wed03/07/19 at 0900, Until Discontinued, Routine Given 03/08/2019 8:14 AM EDT 1 tablet Given 03/07/2019 8:15 AM EDT 1 tablet nortriptyline (PAMELOR) capsule 25 mg 25 mg, Oral, NIGHTLY, First dose on Wed03/07/19 at 2100, Until Discontinued, Routine Given 03/07/2019 8:25 PM EDT 25 mg pregabalin (LYRICA) capsule 100 mg 100 mg, Oral, 2 TIMES DAILY, First dose on Wed03/07/19 at 0900, Until Discontinued, Routine Given 03/08/2019 8:13 AM EDT 100 mg Given 03/07/2019 8:25 PM EDT 100 mg Given 03/07/2019 8:16 AM EDT 100 mg sevelamer carbonate (RENVELA) tablet 800 mg 800 mg, Oral, 2 TIMES DAILY WITH MEALS, First dose on Wed03/07/19 at 0800, Until Discontinued, DO NOT CRUSH OR OPEN, Routine Given 03/08/2019 7:44 AM EDT 800 mg Given 03/07/2019 4:56 PM EDT 800 mg Given 03/07/2019 8:16 AM EDT 800 mg sodium chloride 0.9 % flush 5 mL 5 mL, Intravenous, 2 TIMES DAILY, First dose on Wed03/07/19 at 0900, Until Discontinued, Routine Given 03/08/2019 8:27 AM EDT 5 mLs Given 03/07/2019 8:31 PM EDT 5 mLs Given 03/07/2019 8:19 AM EDT 5 mLs documented in this encounter Active and Recently Administered Medications Times are shown in EDT. Scheduled Medication Order 03/06/2019 03/07/2019 03/08/2019 amLODIPine (NORVASC) tablet 10 mg 10 mg, Oral, DAILY, First dose on Wed03/07/19 at 0900, Until Discontinued, Routine 0815 (Given - Provider: Rosa Elena Carrasco RN) 0813 (Given - Provider: Hector Gupta RN) aspirin chewable tablet 81 mg(Linked Group 1) 81 mg, Oral, DAILY, First dose on Wed03/07/19 at 0900, Until Discontinued, Routine 0815 (Given - Provider: Rosa Elena Carrasco RN) 0815 (Given - Provider: Hector Gupta RN) aspirin suppository 300 mg(Linked Group 1) 300 mg, Rectal, DAILY, First dose on Wed03/07/19 at 0900, Until Discontinued, Routine 0815 (See Alternative - Provider: Rosa Elena Carrasco RN) 0815 (See Alternative - Provider: Hector Gupta RN) atorvastatin (LIPITOR) tablet 40 mg 40 mg, Oral, EVERY EVENING, First dose on Wed03/08/19 at 1700, Until Discontinued, Routine furosemide (LASIX) tablet 40 mg 40 mg, Oral, 2 TIMES DAILY, First dose on Wed03/07/19 at 0900, Until Discontinued, Routine 0815 (Given - Provider: Rosa Elena Carrasco RN)2024 (Given - Provider: Sarah Pang RN) 08 (Given - Provider: Hector Gupta RN) heparin (Porcine) subcutaneous injection 5,000 Units 5,000 Units, Subcutaneous, EVERY 8 HOURS SCHEDULED, First dose on Wed03/07/19 at 0600, Until Discontinued, Routine 0514 (Given - Provider: Jade Issa RN)1400 (Not Given - Provider: Rosa Elena Carrasco RN - Reason: Transfer to a Procedural area)2228 (Given - Provider: Sarah Pang RN) 0513 (Given - Provider: Sarah Pang RN) insulin detemir U-100 (LEVEMIR) VIAL injection 30 Units 30 Units, Subcutaneous, NIGHTLY, First dose on Wed03/07/19 at 0330, Until Discontinued, Half of home dose while inpatient 0330 (Not Given - Provider: Jade Issa RN - Reason: Patient/family refused)2024 (Given - Provider: Sarah Pang RN) insulin lispro (HumaLOG) VIAL injection 0-10 Units 0-10 Units, Subcutaneous, 3 TIMES DAILY WITH MEALS, First dose on Wed03/07/19 at 1700, Until Discontinued, MEAL ASSOCIATED Give 1 unit for every 8 grams carbohydrate. Hold if not eating, Routine 1700 (Not Given - Provider: Rosa Elena Carrasco RN - Reason: Patient/family refused) 0800 (Not Given - Provider: Hector Gupta RN - Reason: Patient/family refused)1200 (Not Given - Provider: Hector Gupta RN - Reason: Order parameters not met - Comment: Patient is discharging, not eating lunch) insulin lispro (HumaLOG) VIAL injection 0-6 Units(Linked Group 2) 0-6 Units, Subcutaneous, EVERY 4 HOURS SCHEDULED, First dose (after last modification) on Wed03/07/19 at 1600, Until Discontinued, CORRECTION BOLUS Custom correction factor 20 BG 140 - 160 Give 1 units BG 161 - 180 Give 2 units BG 181 - 200 Give 3 units BG 201 - 220 Give 4 units BG 221 - 240 Give 5 units BG greater than 240, give 6 units and recheck BG in 2 hours. If BG remains GREATER THAN 240, GIVE 6 units (no more than two times) & call for new basal insulin orders. If less than 240 after two hours, give no insulin and resume prior schedule., Routine 1656 (Given - Provider: Gogo Flores RN)2025 (Not Given - Provider: Sarah Pang RN - Reason: Patient/family refused) 0000 (Not Given - Provider: Sarah Pang RN - Reason: Patient/family refused)0400 (Not Given - Provider: Sarah Pang RN - Reason: Patient/family refused)0800 (Not Given - Provider: Hector Gupta RN - Reason: Patient/family refused)1110 (Given - Provider: Hector Gupta RN) insulin lispro (HumaLOG) VIAL injection 1-4 Units (CANCELED)(Linked Group 3) 1-4 Units, Subcutaneous, EVERY 4 HOURS SCHEDULED, First dose on Wed03/07/19 at 0400, Until Discontinued, CORRECTION BOLUS Sensitive to insulin lean patient or total daily dose of all insulin needed to achieve glycemic control less than 30 units BG 140 - 160 Give 1 unit BG 161 - 200 Give 2 units BG 201 - 240 Give 3 units BG greater than 240, give 4 units and recheck BG in 2 hours. If less than 240 after two hours, give no insulin and resume prior schedule. If BG remains greater than 240, repeat 4 units (no more than three times) & call for new basal insulin orders. DO NOT hold if NPO, unless specifically told to do so., Routine 0514 (Given - Provider: Jade Issa RN)0743 (Given - Provider: Rosa Elena Carrasco RN) insulin lispro (HumaLOG) VIAL injection 12 Units (COMPLETED) 12 Units, Subcutaneous, ONCE, 1 dose, On Wed03/07/19 at 1015, One time correction dose, Routine 0959 (Given - Provider: Rosa Elena Carrasco RN) labetalol (NORMODYNE) tablet 100 mg 100 mg, Oral, 2 TIMES DAILY, First dose on Wed03/07/19 at 0900, Until Discontinued, Routine 08 (Given - Provider: Rosa Elena Carrasco RN)2024 (Given - Provider: Sarah Pang RN) 818 (Given - Provider: Hector Gupta RN) lidocaine (LIDODERM) 5 % patch 1 patch(Linked Group 4) 1 patch, Transdermal, EVERY 24 HOURS, First dose on Wed03/08/19 at 0900, Until Discontinued, Apply patch(es) for 12 hours, and then remove for 12 hours, Routine 818 (Patch Applied - Provider: Hector Gupta RN) lidocaine (LIDODERM) 5 %(700 mg/patch) Patch Removal(Linked Group 4) Transdermal, EVERY 24 HOURS, First dose on Wed03/08/19 at 2100, Until Discontinued, Remove lidocaine 5 %(700 mg/patch) patch multivitamin with minerals (THERA-M) tablet 1 tablet 1 tablet, Oral, DAILY, First dose on Wed03/07/19 at 0900, Until Discontinued, Routine 814 (Given - Provider: Rosa Elena Carrasco RN) 813 (Given - Provider: Hector Gupta RN) nortriptyline (PAMELOR) capsule 25 mg 25 mg, Oral, NIGHTLY, First dose on Wed03/07/19 at 2100, Until Discontinued, Routine 2024 (Given - Provider: Sarah Pang RN) polyethylene glycol (MIRALAX) packet 17 g 17 g, Oral, DAILY, First dose on Wed03/07/19 at 0900, Until Discontinued, Routine 0817 (Not Given - Provider: Rosa Elena Carrasco RN - Reason: Patient/family refused) 0900 (Not Given - Provider: Hector Gupta RN - Reason: Patient/family refused) pregabalin (LYRICA) capsule 100 mg 100 mg, Oral, 2 TIMES DAILY, First dose on Wed03/07/19 at 0900, Until Discontinued, Routine 0816 (Given - Provider: Rosa Elena Carrasco RN)2024 (Given - Provider: Sarah Pang RN) 812 (Given - Provider: Hector Gupta, VIDYA) senna-docusate (PERICOLACE) 8.6-50 mg per tablet 2 tablet 2 tablet, Oral, 2 TIMES DAILY, First dose on Wed03/07/19 at 0900, Until Discontinued, Administer to achieve 1 soft bowel movement daily without straining, Routine 0816 (Not Given - Provider: Rosa Elena Carrasco RN - Reason: Patient/family refused)2100 (Not Given - Provider: Sarah Pang RN - Reason: Patient/family refused) 0900 (Not Given - Provider: Hector Gupta RN - Reason: Patient/family refused) sevelamer carbonate (RENVELA) tablet 800 mg 800 mg, Oral, 2 TIMES DAILY WITH MEALS, First dose on Wed03/07/19 at 0800, Until Discontinued, DO NOT CRUSH OR OPEN, Routine 0816 (Given - Provider: Rosa Elena Carrasco RN)1656 (Given - Provider: Gogo Flores RN) 0744 (Given - Provider: Hector Gupta RN) sodium chloride 0.9 % flush 5 mL 5 mL, Intravenous, 2 TIMES DAILY, First dose on Wed03/07/19 at 0900, Until Discontinued, Routine 0819 (Given - Provider: Rosa Elena Carrasco RN)2030 (Given - Provider: Sarah Pang RN) 0827 (Given - Provider: Hector Gupta RN) PRN Medication Order 03/06/2019 03/07/2019 03/08/2019 acetaminophen (Tylenol) (32.02 mg/mL) oral liquid 975 mg(Linked Group 5) 975 mg, Per G Tube, EVERY 6 HOURS PRN, Starting on Wed03/07/19 at 0302, Until Wed03/08/19 at 1501, Pain, Fever, pain or temperature greater than 100 degrees F (measured by mouth), Should be given concomitantly if other Analgesics are ordered., Routine 0813 (See Alternativ e - Provider: Hector Gupta RN) acetaminophen (TYLENOL) suppository 975 mg(Linked Group 5) 975 mg, Rectal, EVERY 6 HOURS PRN, Starting on Wed03/07/19 at 0302, Until Wed03/08/19 at 1501, Pain, Fever, pain or temperature greater than 100 degrees F (measured by mouth), Maximum dose of acetaminophen is 4000 mg from all sources in 24 hours., Routine 0813 (See Alternativ e - Provider: Hector Gupta RN) acetaminophen (TYLENOL) tablet 975 mg(Linked Group 5) 975 mg, Oral, EVERY 6 HOURS PRN, Starting on Wed03/07/19 at 0302, Until Wed03/08/19 at 1501, Pain, Fever, pain or temperature greater than 100 degrees F (measured by mouth), Maximum dose of acetaminophen is 4000 mg from all sources in 24 hours., Routine 0813 (Given - Provid er: Hector Gupta RN) bisacodyl (DULCOLAX) suppository 10 mg 10 mg, Rectal, DAILY PRN, Starting on Wed03/07/19 at 0302, Until Wed03/08/19 at 1501, Constipation, Administer if needed per patient's routine or if no bowel movement within 48 hours to achieve: (1) One bowel movement at least every 48 hours, AND (2) Without straining. If multiple PRN bowel medications ordered, start with magnesium hydroxide, then bisacodyl. Multiple medications may be given concomitantly for constipation., Routine dextrose 50% intravenous solution 25-50 mL(Linked Group 6) 25-50 mL (12.5-25 g), Intravenous, EVERY 1 HOUR PRN, Starting on Wed03/07/19 at 0932, Until Wed03/08/19 at 1501, Low blood sugar, For BG 50-70 mg/dL: Oral treatment preferred:?? If able to drink, give 120 mL Juice or Regular (not diet) soda OR If NPO, give 15 gram glucose 40% oral gel massaged into buccal mucosa OR if unconscious or uncooperative, give 12.5 gram (25 mL) Dextrose 50% IV OR, if no IV access, give 1 mg Glucagon IM. For BG less than 50 mg/dL: Oral treatment preferred:?? If able to drink, give 240 mL Juice or Regular (not diet) soda OR If NPO, give 30 gram glucose 40% oral gel massaged in buccal mucosa OR if unconscious or uncooperative, give 25 gram (50 mL) Dextrose 50% IV OR, if no IV access, give 1 mg Glucagon IM. Recheck BG in 30 minutes. May repeat juice, gel, dextrose or glucagon once per episode. To avoid extravasation, push Dextrose 50% SLOWLY (3 mL over 1 minute) in a patent, running IV, preferably a central line. For persistent hypoglycemia, consider longer-acting treatment for the duration of the active insulin., Routine enalaprilat (VASOTEC) injection 1.25 mg, Intravenous, Administer over 5 Minutes, EVERY 6 HOURS PRN, Starting on Wed03/07/19 at 0302, Until Wed03/08/19 at 1501, hypertension , Systolic blood pressure (SBP) goal Less Than 220 mmHg. Administer if inadequate blood pressure control in 30 minutes despite Labetolol or when SBP is greater than 220 mmHg or diastolic blood pressure (DBP) greater than 110 mmHg. Note: enalaprilat can be given with labetalol or nicardipine., Routine epoetin ken (EPOGEN;PROCRIT) injection 10,000 Units 10,000 Units, Intravenous, ONCE IN DIALYSIS PRN, 1 dose, Starting on Wed03/07/19 at 0929, Until Wed03/08/19 at 1501, Other, Dialysis (Intra-Procedure), Routine, What is the indication of use? End Stage Renal Disease (ESRD) on dialysis gadoterate meglumine (DOTAREM) 0.5 mmol/mL (376.9 mg/mL) injection 0-100 mL (COMPLETED) 0-100 mL, Intravenous, ONCE PRN, 1 dose, Starting on Wed03/07/19 at 2139, Until Wed03/07/19 at 2210, Per Protocol, Radiology Contrast, Routine 2209 (Given - Provider: Connie Duran) glucagon (human recombinant) injection SolR 1 mg(Linked Group 6) 1 mg, Intramuscular, EVERY 1 HOUR PRN, Starting on Wed03/07/19 at 0932, Until Wed03/08/19 at 1501, Low blood sugar, For BG 50-70 mg/dL: Oral treatment preferred:?? If able to drink, give 120 mL Juice or Regular (not diet) soda OR If NPO, give 15 gram glucose 40% oral gel massaged into buccal mucosa OR if unconscious or uncooperative, give 12.5 gram (25 mL) Dextrose 50% IV OR, if no IV access, give 1 mg Glucagon IM. For BG less than 50 mg/dL: Oral treatment preferred:?? If able to drink, give 240 mL Juice or Regular (not diet) soda OR If NPO, give 30 gram glucose 40% oral gel massaged in buccal mucosa OR if unconscious or uncooperative, give 25 gram (50 mL) Dextrose 50% IV OR, if no IV access, give 1 mg Glucagon IM. Recheck BG in 30 minutes. May repeat juice, gel, dextrose or glucagon once per episode. To avoid extravasation, push Dextrose 50% SLOWLY (3 mL over 1 minute) in a patent, running IV, preferably a central line. For persistent hypoglycemia, consider longer-acting treatment for the duration of the active insulin., Routine glucose (GLUTOSE) 40% oral gel(Linked Group 6) 15-30 g, Buccal, EVERY 30 MIN PRN, Starting on Wed03/07/19 at 0932, Until Wed03/08/19 at 1501, Low blood sugar, For BG 50-70 mg/dL: Oral treatment preferred:?? If able to drink, give 120 mL Juice or Regular (not diet) soda OR If NPO, give 15 gram glucose 40% oral gel massaged into buccal mucosa OR if unconscious or uncooperative, give 12.5 gram (25 mL) Dextrose 50% IV OR, if no IV access, give 1 mg Glucagon IM. For BG less than 50 mg/dL: Oral treatment preferred:?? If able to drink, give 240 mL Juice or Regular (not diet) soda OR If NPO, give 30 gram glucose 40% oral gel massaged in buccal mucosa OR if unconscious or uncooperative, give 25 gram (50 mL) Dextrose 50% IV OR, if no IV access, give 1 mg Glucagon IM. Recheck BG in 30 minutes. May repeat juice, gel, dextrose or glucagon once per episode. To avoid extravasation, push Dextrose 50% SLOWLY (3 mL over 1 minute) in a patent, running IV, preferably a central line. For persistent hypoglycemia, consider longer-acting treatment for the duration of the active insulin. 1 tube contains 15 grams of glucose (net weight of tube = 37.5 grams., Routine labetalol (NORMODYNE,TRANDATE) injection 10-20 mg 10-20 mg, Intravenous, Administer over 2 Minutes, EVERY 15 MIN PRN, Starting on Wed03/07/19 at 0302, Until Wed03/08/19 at 1501, High Blood Pressure, - Systolic blood pressure (SBP) goal Less Than 220 mmHg. Start with 10 mg/dose every 15 minutes, If inadequate effect with 10 mg/dose then increase to 20 mg/dose for subsequent dosing. - Do not exceed 300 mg per day. - Repeat every 15 minutes for SBP greater than 220 mmHg. - Hold if pulse is less than 50 beats per minute. If Labetalol does not satisfactorily control BP within 30 minutes, consider enalaprilat or niCARdipine., Routine lidocaine (XYLOCAINE) 10 mg/mL (1 %) injection 3 mg 3 mg (0.3 mL), Subcutaneous, ONCE PRN, 1 dose, Starting on Wed03/07/19 at 0302, Until Wed03/08/19 at 1501, for discomfort with PIV insertion, Routine magnesium hydroxide (Milk of Magnesia) (240 mg/mL) oral liquid 10 mL 10 mL, Oral, NIGHTLY PRN, Starting on Wed03/07/19 at 0302, Until Wed03/08/19 at 1501, Constipation, Administer if needed per patient's routine or if no bowel movement within 48 hours to achieve: (1) One bowel movement at least every 48 hours, AND (2) Without straining. If multiple PRN bowel medications ordered, start with magnesium hydroxide, then bisacodyl. Multiple medications may be given concomitantly for constipation., Routine sodium chloride 0.9 % flush 5-20 mL 5-20 mL, Intravenous, EVERY 1 MIN PRN, Starting on Wed03/07/19 at 0302, Until Wed03/08/19 at 1501, flush, Flush pertains to all indwelling lines. Flush per protocol found in the job aid using the link provided on this medication record., Routine Linked Groups Order Group 1: aspirin chewable tablet 81 mgJump to med 81 mg, Oral, DAILY, First dose on Wed03/07/19 at 0900, Until Discontinued, Routine Or aspirin suppository 300 mgJump to med 300 mg, Rectal, DAILY, First dose on Wed03/07/19 at 0900, Until Discontinued, Routine Group 2: POCT Fingerstick Glucose (CANCELED) Routine, EVERY 4 HOURS, First occurrence on Wed03/07/19 at 1600, Until Specified, Consider choosing EVERY 4 HOURS as frequency for: - Type 1 Diabetes - At least 24 hours after coming off an insulin drip - At least 24 hours after admission for DKA - Hypoglycemia unawareness - Patients who are otherwise unstable Select the same frequency for the correction bolus insulin order And insulin lispro (HumaLOG) VIAL injection 0-6 UnitsJump to med 0-6 Units, Subcutaneous, EVERY 4 HOURS SCHEDULED, First dose (after last modification) on Wed03/07/19 at 1600, Until Discontinued, CORRECTION BOLUS Custom correction factor 20 BG 140 - 160 Give 1 units BG 161 - 180 Give 2 units BG 181 - 200 Give 3 units BG 201 - 220 Give 4 units BG 221 - 240 Give 5 units BG greater than 240, give 6 units and recheck BG in 2 hours. If BG remains GREATER THAN 240, GIVE 6 units (no more than two times) & call for new basal insulin orders. If less than 240 after two hours, give no insulin and resume prior schedule., Routine Group 3: POCT Fingerstick Glucose (CANCELED) Routine, EVERY 4 HOURS, First occurrence on Wed03/07/19 at 0400, Until Specified, Consider choosing EVERY 4 HOURS as frequency for: - Type 1 Diabetes - At least 24 hours after coming off an insulin drip - At least 24 hours after admission for DKA - Hypoglycemia unawareness - Patients who are otherwise unstable Select the same frequency for the correction bolus insulin order And insulin lispro (HumaLOG) VIAL injection 1-4 Units (CANCELED)Jump to med 1-4 Units, Subcutaneous, EVERY 4 HOURS SCHEDULED, First dose on Wed03/07/19 at 0400, Until Discontinued, CORRECTION BOLUS Sensitive to insulin lean patient or total daily dose of all insulin needed to achieve glycemic control less than 30 units BG 140 - 160 Give 1 unit BG 161 - 200 Give 2 units BG 201 - 240 Give 3 units BG greater than 240, give 4 units and recheck BG in 2 hours. If less than 240 after two hours, give no insulin and resume prior schedule. If BG remains greater than 240, repeat 4 units (no more than three times) & call for new basal insulin orders. DO NOT hold if NPO, unless specifically told to do so., Routine Group 4: lidocaine (LIDODERM) 5 % patch 1 patchJump to med 1 patch, Transdermal, EVERY 24 HOURS, First dose on Wed03/08/19 at 0900, Until Discontinued, Apply patch(es) for 12 hours, and then remove for 12 hours, Routine And lidocaine (LIDODERM) 5 %(700 mg/patch) Patch RemovalJump to med Transdermal, EVERY 24 HOURS, First dose on Wed03/08/19 at 2100, Until Discontinued, Remove lidocaine 5 %(700 mg/patch) patch Group 5: acetaminophen (TYLENOL) tablet 975 mgJump to med 975 mg, Oral, EVERY 6 HOURS PRN, Starting on Wed03/07/19 at 0302, Until Wed03/08/19 at 1501, Pain, Fever, pain or temperature greater than 100 degrees F (measured by mouth), Maximum dose of acetaminophen is 4000 mg from all sources in 24 hours., Routine Or acetaminophen (Tylenol) (32.02 mg/mL) oral liquid 975 mgJump to med 975 mg, Per G Tube, EVERY 6 HOURS PRN, Starting on Wed03/07/19 at 0302, Until Wed03/08/19 at 1501, Pain, Fever, pain or temperature greater than 100 degrees F (measured by mouth), Should be given concomitantly if other Analgesics are ordered., Routine Or acetaminophen (TYLENOL) suppository 975 mgJump to med 975 mg, Rectal, EVERY 6 HOURS PRN, Starting on Wed03/07/19 at 0302, Until Wed03/08/19 at 1501, Pain, Fever, pain or temperature greater than 100 degrees F (measured by mouth), Maximum dose of acetaminophen is 4000 mg from all sources in 24 hours., Routine Group 6: glucose (GLUTOSE) 40% oral gelJump to med 15-30 g, Buccal, EVERY 30 MIN PRN, Starting on Wed03/07/19 at 0932, Until Wed03/08/19 at 1501, Low blood sugar, For BG 50-70 mg/dL: Oral treatment preferred:?? If able to drink, give 120 mL Juice or Regular (not diet) soda OR If NPO, give 15 gram glucose 40% oral gel massaged into buccal mucosa OR if unconscious or uncooperative, give 12.5 gram (25 mL) Dextrose 50% IV OR, if no IV access, give 1 mg Glucagon IM. For BG less than 50 mg/dL: Oral treatment preferred:?? If able to drink, give 240 mL Juice or Regular (not diet) soda OR If NPO, give 30 gram glucose 40% oral gel massaged in buccal mucosa OR if unconscious or uncooperative, give 25 gram (50 mL) Dextrose 50% IV OR, if no IV access, give 1 mg Glucagon IM. Recheck BG in 30 minutes. May repeat juice, gel, dextrose or glucagon once per episode. To avoid extravasation, push Dextrose 50% SLOWLY (3 mL over 1 minute) in a patent, running IV, preferably a central line. For persistent hypoglycemia, consider longer- acting treatment for the duration of the active insulin. 1 tube contains 15 grams of glucose (net weight of tube = 37.5 grams., Routine Or dextrose 50% intravenous solution 25-50 mLJump to med 25-50 mL (12.5-25 g), Intravenous, EVERY 1 HOUR PRN, Starting on Wed03/07/19 at 0932, Until Wed03/08/19 at 1501, Low blood sugar, For BG 50-70 mg/dL: Oral treatment preferred:?? If able to drink, give 120 mL Juice or Regular (not diet) soda OR If NPO, give 15 gram glucose 40% oral gel massaged into buccal mucosa OR if unconscious or uncooperative, give 12.5 gram (25 mL) Dextrose 50% IV OR, if no IV access, give 1 mg Glucagon IM. For BG less than 50 mg/dL: Oral treatment preferred:?? If able to drink, give 240 mL Juice or Regular (not diet) soda OR If NPO, give 30 gram glucose 40% oral gel massaged in buccal mucosa OR if unconscious or uncooperative, give 25 gram (50 mL) Dextrose 50% IV OR, if no IV access, give 1 mg Glucagon IM. Recheck BG in 30 minutes. May repeat juice, gel, dextrose or glucagon once per episode. To avoid extravasation, push Dextrose 50% SLOWLY (3 mL over 1 minute) in a patent, running IV, preferably a central line. For persistent hypoglycemia, consider longer-acting treatment for the duration of the active insulin., Routine Or glucagon (human recombinant) injection SolR 1 mgJump to med 1 mg, Intramuscular, EVERY 1 HOUR PRN, Starting on Wed03/07/19 at 0932, Until Wed03/08/19 at 1501, Low blood sugar, For BG 50-70 mg/dL: Oral treatment preferred:?? If able to drink, give 120 mL Juice or Regular (not diet) soda OR If NPO, give 15 gram glucose 40% oral gel massaged into buccal mucosa OR if unconscious or uncooperative, give 12.5 gram (25 mL) Dextrose 50% IV OR, if no IV access, give 1 mg Glucagon IM. For BG less than 50 mg/dL: Oral treatment preferred:?? If able to drink, give 240 mL Juice or Regular (not diet) soda OR If NPO, give 30 gram glucose 40% oral gel massaged in buccal mucosa OR if unconscious or uncooperative, give 25 gram (50 mL) Dextrose 50% IV OR, if no IV access, give 1 mg Glucagon IM. Recheck BG in 30 minutes. May repeat juice, gel, dextrose or glucagon once per episode. To avoid extravasation, push Dextrose 50% SLOWLY (3 mL over 1 minute) in a patent, running IV, preferably a central line. For persistent hypoglycemia, consider longer-acting treatment for the duration of the active insulin., Routine documented in this encounter Care Teams Chief Hydroelectric Station Operator Relationship Specialty Start Date End Date Lauri Barbosa DNP [address] [place] [address] PCP - General Family Medicine 02/06/19 08/09/22 documented as of this encounter
--- OUTSIDE RECORDS SUMMARY | 2024-12-05 12:41 | XMS_ITS | Encounter Summary ---
Author Organization [place] [address] Care Team Providers Care Room Service Waiter Name Role Phone Lauri Barbosa DNP Primary Care Provider [phone] Encounter Details Date Type Department Care Team (Late st Contact Info) Description 06/15/2019 Abstract [place] [address] Akua Rodriguez, RN Social History Tobacco Use Types Packs/Day [...] on filedocumented in this encounter Care Teams Room Service Waiter Relationship Specialty Start Date End Date Lauri Barbosa DNP [address] [place] [address] PCP - General Family Medicine 02/06/19 08/09/22 documented as of this encounter
--- OUTSIDE RECORDS SUMMARY | 2024-12-05 12:41 | XMS_ITS | Encounter Summary ---
Author Organization [facility] Address [facility] [place] [address] Care Team Providers Care Pension Manager Name Role Phone Raul KarineLauri ADIEL Primary Care Provider [phone] Encounter Details Date Type Department Care Team (Late st Contact Info) Description 04/07/2019 Telephone [place] [id number] Vanessa Hutchison MSW [facility] [place] [address] Social History Tobacco Use Types Packs/Day Years [...] as of this encounter Progress Notes * Vanessa Hutchison MSW - 04/07/2019 3:52 PM EDT Worker received a call from Xander asking for help in signing up for Medicare. Xander said that since hislast visit he has started dialysis out of [facility]. He states that while he remains on his 's insurance he has been getting bills, one for around $3,000. Worker advised him to remain onhis 's insurance and encouraged him to speak to the at his dialysis so she could complete a 2728 form and start the process for Medicare. Worker talked about how he might be able to get assistance through the kidney foundation so he can possible get a supplement to his Medicare, but this wastoo much information to process at the current time. Worker encouraged Xander to press worker helper once his M edicare was in place, saying it could be up to 3 months. Worker spoke to the SW at the center to ensure that the form would be completed. SW said that she has not met Xander yet, but she plans on it. documented in this encounter Plan of Treatment Not on file documented as of this encounter Visit Diagnoses Not on filedocumented in this encounter Care Teams Pension Manager Relationship Specialty Start Date End Date Lauri Barbosa DNP [address] [place] [address] PCP - General Family Medicine 02/06/19 08/09/22 documented as of this encounter
--- OUTSIDE RECORDS SUMMARY | 2024-12-05 12:41 | XMS_ITS | Encounter Summary ---
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, with long-term current use of insulin Izaiah Welsh MD [facility] [place] [address] [place] [address] Referral ID Status Reason Start Date Expiration Date V isits Requested Visits Authorized [id number] Closed Continuity of Care 05/04/2019 05/03/2020 1 1 Encounter Details Date Type Department Care Team (Late st Contact Info) Description 05/04/2019 2:00 PM EDT Office Visit Endocrinology at [facility] [place] [phone] 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 He is initiating a new insulin regimen we need to make sure he knows how to count carbs and which foods have carbs.. Today a CGMS was prescribed by Dr. Welsh and he requires education on this. Referred by Izaiah Welsh MD Brief Nutrition & Diabetes History He reported following a renal diet (low Na+, K+, and Phos) for his chronic kidney disease. He is listed for renal transplant. Previously on an insulin sliding scale with meals. Reports he does get intermittent hypoglycemia with blood glucoses as low as 40 mg/dL. He feels symptoms of hypoglycemia with BG ~85 mg/dL. He has had diabetes for over 30 years. Exercise walking Social history Lives with his who helps prepare meals. Diet Recall obtained by 2-3 meals and 0-1 snack a day (1 peach last night) Breakfast- 1 slice of toast and coffee with 1/4 cup of milk (no sugar) ?? Lunch- often missed it. Sometime a sandwich ?? Supper- largest meals with steak, potatoes 1.5 cup, pork chop, 1 peach ?? Snack: 1 peach last night ?? Diet plan: renal diet He told this write he loves to snack on watermelon and could eat 5-6 cups of it in 1 sitting. OBJECTIVE Anthropometrics: Vitals Office Visit from 05/04/2019 in Endocrinology at [place] Weight 95.3 kg (210 lb) Height 177.8 cm (5' 10) BSA (Calculated - sq m) 2.17 sq meters BMI (Calculated) 30.13 Heart Rate 68 Resp 17 BP 115/68 SpO2 99 % Medications: Medication Sig FREESTYLE MARIS 14 DAY READER [facility] Use to continuously monitor blood glucose. Scan at least 5 times/day. Dx: flash glucose sensor (FREESTYLE MARIS 14 DAY SENSOR) Kit q14 days as instructed. Indication= E11.21 HUMALOG KWIKPEN 100 unit/mL Insulin Pen Inject subcutaneously 3 times daily. Sliding Scale lidocaine-prilocaine (EMLA) Cream Apply 1 Application topically as needed. aspirin 81 mg Tablet, Chewable Take 81 mg by mouth daily. atorvastatin (LIPITOR) 40 mg Tablet Take 1 tablet by mouth every evening. sevelamer carbonate (RENVELA) 800 mg Tablet Take 1 tablet by mouth 3 times daily (with meals). Patient taking differently: Take 800 mg by mouth 2 times daily (with meals). labetalol (NORMODYNE) 100 mg Tablet Take 100 mg by mouth 2 times daily. furosemide (LASIX) 80 mg Tablet Take 1 tablet by mouth 2 times daily. Patient taking differently: Take 40 mg by mouth 2 times daily. blood sugar diagnostic strips (INBEPTOUCH ULTRA TEST) Strip 1 each by Other route 2 times daily (before meals). Dx code 250.02 uses insulin insulin detemir U-100 (LEVEMIR) Insulin Pen Inject 55 Units subcutaneously nightly. lancets Misc Inject 1 each subcutaneously 2 times daily (before meals). Dx code 250.02 uses insulin hydrALAZINE (APRESOLINE) 25 mg Tablet Take 1 tablet by mouth 3 times daily. ranitidine (ZANTAC) 150 mg Tablet Take 150 mg by mouth 2 times daily. nortriptyline (PAMELOR) 25 mg Capsule Take 25 mg by mouth nightly. amLODIPine (NORVASC) 10 mg Tablet Take 1 tablet by mouth daily. pregabalin (LYRICA) 100 mg Capsule Take 100 mg by mouth 2 times daily. multivitamin (THERAGRAN) Tablet Take 1 tablet by mouth daily. Insulin Isom, Disposable, 31 X 5/16 Needle Inject 1 each subcutaneously 2 times daily (before meals). New outpatient diabetes regimen as of today: Patient will start taking Humalog pen 1u:5 gm carb for each meal and extra for high BG based on 1U:20 BG ratio if BG >170 before each meal and at bedtime (about every 4 hours). Labs: Lab Results Component Value Date HA1C 11.2 (H) 03/07/2019 Lab Results Component Value Date CHLPL 269 03/07/2019 Lab Results Component Value Date HDL 46 03/07/2019 No results found for: LDLCHOL Lab Results Component Value Date TRIG 323 03/07/2019 Lab Results Component Value Date CHOLHDL 5.8 03/07/2019 ASSESSMENT: Poorly controlled diabetes evidenced by an HA1c of 11.2%. Today Gerson needs to learn how to count carbohydrates to properly figure out how many units of insulin to take to cover his meals to prevent post-meal hyperglycemia. He needs to learn how to add this insulin to a correction dose to figure out the total amount of insulin to take with meals. He alsoneeds review on how to use correction factor alone for correcting for hyperglycemia. He also requires instruction using the Freestyle Maris CGMS. Addtionally he isn't quite sure how to treat hypoglycemia to minimize rebound hyperglycemia. INTERVENTION/EDUCATION PROVIDED: x Nutrition adequacy for management of diabetes with advanced CKD + prep for renal transplant. x Blood glucose monitoring/analysis: Advised to check glucose before every meal and if he skips a meals no more than every 4 hours so he isn't over-correcting. Advised target range for glucose is 80-170 mg/dL. Provided detailed instruction on use of Freestyle Maris including application of sensor using [employer] kit. x Role of Carbohydrates in BS control x Carbohydrate to insulin ratios/Correction factors: used instructional worksheets provided by Dr. Welsh and did the math on paper. x Food sources of carbohydrate x Hypoglycemia: symptoms, causes, treatment: Rule of 15 x Carbohydrate counting: book provided for estimating portions sizes. Advised it is not specific toa renal diet but use a tool to help him estimate the amount of carbs he's eating with meals. We worked through the math of dividing total carb by 5 , which is his I:C ratio Food/Medication interaction reviewed CHO budget for meals/snacks B: 30-45gm Sn: 15 L: 30-45-60 gm Sn: 15 D: 30-45-60 gm Sn: 15 x Sensor glucose targets: 70-180 mg/dL x Timing of meals/snacks: advised avoiding skipped meals. Food journal recommended - online kylee: Lose it or Myfitnesspal Importance of fiber->3g/svg 25-30 gm daily Alcohol guidelines reviewed Fat intake recommendations Saturated fats: < Gm daily Sodium guidelines reviewed: Recommended mg: Protein requirements given: Calorie requirements give: Exercise recommended: days/week duration Daily energy needs: Calories For weight reduction Improving insulin resistance Improving lipids, blood pressure Improving joint pain, reducing inflammation Improving overall, wellness, self esteem -Evaluation of food environment -Emotional Triggers -Importance of glucose/food diary -Importance of boosting daily activity Food label reading reviewed Eating out guidelines OUTCOMES MONITORING AND EVALUATION: Gerson asked many questions for clarification and appeared to have a fair-good unstaning of the instruction of using his I:C ratio for carbs and correction factor for BG > 170 after a meal. Receptive to information yes Barriers to making change None observed PLAN GOALS OF MEDICAL NUTRITION THERAPY 1. Achieve optimal blood glucose control by balancing food intake with physical activity, insulin therapy, and medications. 2. Achieve optimal blood pressure and lipid levels. 3. Achieve and maintain optimal body weight for for height. 4. Reduce and prevent acute and rodent exterminator complications. 5. Maintain eating to meet nutritional, personal, and cultural needs PT SPECIFIC RECOMMENDATIONS: 1. Add up all the carbs you will be eating for a meal and snack and divide by 5. 2. Be sure to check your glucose prior to meals using Freestyle Maris or blood glucose using glucometer to correct if BG > 170 after a meal. Use the scale provided to figure out how much more insulin to take in addition to the carbs. Use monitoring guidelines per Dr. Welsh. 3. 30- 45 grams of carbs with meals. 15 g for snacks. 3 ounces of protein with meals. Low K+ veggies/fruits. 4. Please contact me or the office with questions/concerns or if you need help setting up your 14-Day Freestyle Maris Follow up: At next appointment with BOILER CONTROL ROOM OPERATOR. 40 minutes spent in total 20 min on MNT. 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
--- OUTSIDE RECORDS SUMMARY | 2024-12-05 12:41 | XMS_ITS | Encounter Summary ---
Author Organization [facility] Address [facility] [place] [address] Care Team Providers Care Medical Stenographer Name Role Phone Lauri Barbosa DNP Primary Care Provider [phone] Encounter Details Date Type Department Care Team (Late st Contact Info) Description 03/07/2019 Orders Only [place] [address] Debra Akins RN Pre-transplant evaluation for kidney [...] disease documented in this encounter Care Teams Medical Stenographer Relationship Specialty Start Date End Date Lauri Barbosa DNP [address] [place], [place] [address] PCP - General Family Medicine 02/06/19 08/09/22 documented as of this encounter
--- OUTSIDE RECORDS SUMMARY | 2024-12-05 12:41 | XMS_ITS | Encounter Summary ---
[place] [address] Care Team Providers Care Awning Frame Maker Name Role Phone Raul Karine Lauri CHUN Primary Care Provider Encounter Details Date Type Department Care Team (Latest Contact Info) Description 02/06/2019 3:00 PM EDT Laboratory Appointment Lab [address] [id number] CKD (chronic kidney disease) stage 4, GFR 15-29 ml/min Social History Tobacco Use Types Packs/Day Years [...] Procedure Name Priority Date/Time Associated Diagnosis Comments PTH Routine 02/06/2019 3:22 PM EDT CKD (chronic kidney disease) stage 4, GFR 15-29 ml/min HEMOGRAM Routine 02/06/2019 3:22 PM EDT CKD (chronic kidney disease) stage 4, GFR 15-29 ml/min DIFFERENTIAL, AUTOMATED Routine 02/06/2019 3:22 PM EDT CKD (chronic kidney disease) stage 4, GFR 15-29 ml/min GOLD TUBE HOLD Routine 02/06/2019 3:22 PM EDT CKD (chronic kidney disease) stage 4, GFR 15-29 ml/min IRON AND TIBC Routine 02/06/2019 3:22 PM EDT HEPATITIS B SURFACE ANTIGEN Routine 02/06/2019 3:22 PM EDT CBC (WITH DIFF) Routine 02/06/2019 3:22 PM EDT CKD (chronic kidney disease) stage 4, GFR 15-29 ml/min URIC ACID Routine 02/06/2019 3:22 PM EDT CKD (chronic kidney disease) stage 4, GFR 15-29 ml/min PHOSPHORUS Routine 02/06/2019 3:22 PM EDT CKD (chronic kidney disease) stage 4, GFR 15-29 ml/min FERRITIN Routine 02/06/2019 3:22 PM EDT ALBUMIN LEVEL Routine 02/06/2019 3:22 PM EDT CKD (chronic kidney disease) stage 4, GFR 15-29 ml/min BASIC METABOLIC PANEL Routine 02/06/2019 3:22 PM EDT CKD (chronic kidney disease) stage 4, GFR 15-29 ml/min PROTEIN/CREATININE RATIO, URINE Routine 02/06/2019 3:17 PM EDT CKD (chronic kidney disease) stage 4, GFR 15-29 ml/min documented in this encounter Results * Hepatitis B Surface Antigen (02/06/2019 3:22 PM EDT) Hepatitis B Surface Antigen Negative Negative [facility] Blood specimen (specimen) No Charge / Unknown 02/06/2019 3:22 PM EDT 02/06/2019 3:38 PM EDT Narrative Resulting Agency Comment Spec In Lab Sukumar Khan MD CHEMISTRY ORDERA BLES [facility] [place] [address] * Ferritin (02/06/2019 3:22 PM EDT) [facility] Ferritin 137 30 - 400 ng/mL [facility] Comment: Pediatric reference ranges not verified at [facility], interpret with caution. Reference ranges for females greater than 50 years of age approach values for men, i.e., 30-400 ng/mL. Blood specimen (specimen) No Charge / Unknown 02/06/2019 3:22 PM EDT 02/06/2019 3:38 PM EDT Narrative Resulting Agency Comment Spec In Lab Sukumar Khan MD CHEMISTRY ORDERA BLES Performing Organization Address City/[facility]/ZIP Co de Phone Number [facility] [place] [address] * Iron and TIBC (02/06/2019 3:22 PM EDT) [facility] Iron 66 45 - 160 mcg/dL [facility] TIBC 291 250 - 450 mcg/dL [facility] Iron Saturation 23 20 - 50 % [facility] Blood specimen (specimen) Venous Draw / Unknown 02/06/2019 3:22 PM EDT 02/06/2019 3:38 PM EDT Narrative Resulting Agency Comment Spec In Lab Sukumar Khan MD CHEMISTRY ORDERA BLES Performing Organization Address City/[facility]/ZIP Co de Phone Number [facility] [place] [address] * Differential, Automated (02/06/2019 3:22 PM EDT) [facility] Neutrophil % 56.3 % [facility] Neutrophil Absolute 4.17 1.70 - 6.10 x10(3)/[facility] Lymph % 28.5 % [facility] Lymphocytes Abs 2.1 0.9 - 3.2 x10(3)/[facility] Monocyte % 10.0 % [facility] Monocyte Abs 0.7 0.3 - 0.9 x10(3)/[facility] Eos % 4.3 % [facility] Eosinophils Abs 0.3 0.0 - 0.4 x10(3)/[facility] Basophil % 0.8 % [facility] Baso Absolute 0.1 0.0 - 0.1 x10(3)/[facility] Immature Gran % 0.10 % [facility] Comment: Immature granulocytes(IG's)percentage and absolute count will include metamyelocytes, myelocytes, and promyelocytes. Blood smears from CBCs yielding IG's will be scanned manually for concordance. If this scan disagrees with the automated IG or if promyelocytes are noted, a manual differential will be performed. Immature Gran Absolute 0.01 0.00 - 0.04 x10(3)/[facility] Blood specimen (specimen) 02/06/2019 3:22 PM EDT 02/06/2019 3:28 PM EDT Narrative Resulting Agency Comment Spec In Lab Sukumar Khan MD HEMATOLOGY ORDER FRANSISCO [facility] [place] [address] * (ABNORMAL) Hemogram (02/06/2019 3:22 PM EDT) White Blood Cell 7.4 4.0 - 9.5 x10(3)/mc L [facility] Red Blood Cell 2.95(L) 4.58 - 5.54 x10(6)/mc L [facility] Hemoglobin 8.9(L) 13.7 - 16.5 gm/dL [facility] Hematocrit 26.6(L) 40.5 - 48.5 % [facility] Mean Cell Volume 90.2 82.9 - 93.1 fL [facility] Mean Cell Hemoglobin 30.2 27.5 - 32.1 pg [facility] Mean Cell Hemoglobin Concentration 33.5 32.0 - 35.7 gm/dL [facility] Platelet 273 145 - 357 x10(3)/mc L [facility] RDW Standard Deviation 41.3 36.0 - 45.0 fL [facility] RDW coefficient of variation 12.6 11.4 - 13.8 % [facility] Mean Platelet Volume 11.6 7.6 - 12.9 fL [facility] NRBC% auto 0.0 % [facility] NRBC Absolute 0.000 0.000 - 0.000 x10(3)/mc L [facility] Blood specimen (specimen) 02/06/2019 3:22 PM EDT 02/06/2019 3:28 PM EDT Narrative Resulting Agency Comment Spec In Lab Sukumar Khan MD HEMATOLOGY ORDER FRANSISCO Performing Organization Address City/State/[facility] Co de Phone Number [facility] [place] [address] * (ABNORMAL) Basic Metabolic Panel (non-fasting) (02/06/2019 3:22 PM EDT) Glucose 445(H) 65 - 199 mg/dL [facility] Comment:Diabetes: >=200 mg/d L plus symptoms Blood Urea Nitrogen 79(H) 10 - 20 mg/dL [facility] Creatinine 5.16(H) 0.80 - 1.50 mg/dL [facility] Sodium 136 135 - 145 mmol/L [facility] Potassium 4.9 3.5 - 5.0 mmol/L [facility] Comment: Please note: ??Patients with WBC >100,000 may have falsely elevated Potassium levels. ??For accurate Potassium quantification in these patients send serum separator tube (gold top) for subsequent determinations. ??Contact the Clinical Chemistry Laboratory if there are any questions. Chloride 94(L) 98 - 107 mmol/L [facility] Carbon Dioxide 28 22 - 31 mmol/L [facility] Anion Gap 14 5 - 15 mmol/L [facility] Calcium 10.0 8.5 - 10.5 mg/dL [facility] Est Glomerular Filtration Rate 12(L) >=60 mL/min/1. 73 m?? [facility] Comment: The eGFR was calculated using the CKD-EPI equation. As with all creatinine based estimates of kidney function, eGFR values calculated with the CKD-EPI equation are not accurate in patients with acute kidney failure, extremes of body mass or the acutely ill. http://MeMeMe/[facility] eGFR 14(L) >=60 mL/min/1. 73 m?? [facility] Comment: The eGFR was calculated using the CKD-EPI equation. As with all creatinine based estimates of kidney function, eGFR values calculated with the CKD-EPI equation are not accurate in patients with acute kidney failure, extremes of body mass or the acutely ill. http://MeMeMe/[facility]kf Blood specimen (specimen) 02/06/2019 3:22 PM EDT 02/06/2019 3:28 PM EDT Narrative Resulting Agency Comment Spec In Lab Gisele Mosqueda MD CHEMISTRY ORDERABLES Performing Organization Address City/[facility]/ZIP Co de Phone Number [facility] [place] [address] * (ABNORMAL) Phosphorus (02/06/2019 3:22 PM EDT) Phosphorus 7.3(H) 2.5 - 4.5 mg/dL [facility] Blood specimen (specimen) 02/06/2019 3:22 PM EDT 02/06/2019 3:28 PM EDT Narrative Resulting Agency Comment Spec In Lab Gisele Mosqueda MD CHEMISTRY ORDERABLES [facility] [place] [address] * Albumin Level (02/06/2019 3:22 PM EDT) Albumin 3.8 3.2 - 5.2 gm/dL [facility] Blood specimen (specimen) 02/06/2019 3:22 PM EDT 02/06/2019 3:28 PM EDT Narrative Resulting Agency Comment Spec In Lab Gisele Mosqueda MD CHEMISTRY ORDERABLES Performing Organization Address City/[facility]/ZIP Co de Phone Number [facility] [place] [address] * Uric acid (02/06/2019 3:22 PM EDT) Uric Acid 6.5 3.5 - 8.5 mg/dL [facility] Blood specimen (specimen) 02/06/2019 3:22 PM EDT 02/06/2019 3:28 PM EDT Narrative Resulting Agency Comment Spec In Lab Gisele Mosqueda MD CHEMISTRY ORDERABLES Performing Organization Address [facility] Co de Phone Number [facility] [place] [address] * PTH (02/06/2019 3:22 PM EDT) Parathyroid Hormone 45 15 - 65 pg/mL [facility] Blood specimen (specimen) 02/06/2019 3:22 PM EDT 02/06/2019 3:28 PM EDT Narrative Resulting Agency Comment Spec In Lab Gisele Mosqueda MD CHEMISTRY ORDERABLES Performing Organization Address City/[facility]/ZIP Co de Phone Number [facility] [place] [address] * Gold Tube HOLD (02/06/2019 3:22 PM EDT) Gold Hold Sample in lab. [facility] Blood specimen (specimen) 02/06/2019 3:22 PM EDT 02/06/2019 3:28 PM EDT Gisele Mosqueda MD CHEMISTRY ORDERABLES Performing Organization Address City/[facility]/ZIP Co de Phone Number [facility] [place] [address] * (ABNORMAL) Protein/Creatinine Ratio, urine (02/06/2019 3:17 PM EDT) Creatinine, Urine 33 mg/dL [facility] Protein, Urine 218(H) 0 - 12 mg/dL [facility] Protein / Creatinine Ratio, Urine 6.6 ratio [facility] Urine specimen (specimen) 02/06/2019 3:17 PM EDT 02/06/2019 3:21 PM EDT Narrative Resulting Agency Comment Spec In Lab Gisele Mosqueda MD URINE ORDERABLES Performing Organization Address [facility] Co de Phone Number [facility] [place] [address] documented in this encounter Visit Diagnoses Diagnosis CKD (chronic kidney disease) stage 4, GFR 15-29 ml/min Chronic kidney disease, Stage IV (severe) documented in this encounter Care Teams Awning Frame Maker Relationship Specialty Start Date End Date Lauri Barbosa DNP [address] [place] [address] PCP - General Family Medicine 02/06/19 08/09/22 documented as of this encounter
--- OUTSIDE RECORDS SUMMARY | 2024-12-05 12:41 | XMS_ITS | Encounter Summary ---
Author Organization Formerly [facility] Address [facility] [place] [address] Care Team Providers Care Hot Strip Finisher Name Role Phone Lauri Barbosa ADIEL Primary Care Provider Encounter Details Date Type Department Care Team (Late st Contact Info) Description 03/06/2019 8:45 PM EDT Ancillary Procedure Radiology Library at [facility] [place] [address] Simón Romero MD [facility] [place] [address] Social History Tobacco Use Types Packs/Day Years [...] Diagnosis Comments FILM LIBRARY STORAGE ONLY CT HEAD Routine 03/06/2019 8:42 PM EDT documented in this encounter Results * Film Library- Storage Only CT Head (03/06/2019 8:42 PM EDT) Narrative RAD - 03/06/2019 8:42 PM EDT This exam is auto-finalizing. It's purpose is for storage only. Simón Romero MD [facility] FILM LIBRARY ORD ERABLES [place], [place] documented in this encounter Visit Diagnoses Not on filedocumented in this encounter Care Teams Hot Strip Finisher Relationship Specialty Start Date End Date Lauri Barbosa, ADIEL [address] [place] [address] PCP - General Family Medicine 02/06/19 08/09/22 documented as of this encounter
--- OUTSIDE RECORDS SUMMARY | 2024-12-05 12:41 | XMS_ITS | Encounter Summary ---
Author Organization [facility] Address [facility] [place] [address] Care Team Providers Care Visual Merchandising Associate Name Role Phone Lauri Barbosa ADIEL Primary Care Provider [phone] Encounter Details Date Type Department Care Team (Late st Contact Info) Description 05/17/2019 [place] [phone] Jean[address] Felipe RD Social History Tobacco Use Types Packs/Day [...] encounter Miscellaneous Notes * Telephone Encounter - Jeaneth Felipe RD - 05/17/2019 2:08 PM EDT Adult Endocrinology Diabetes Education and Nutrition Services Gerson called regarding his CGM specifically 14-Day Freestyle Maris he hasn't been wearing it giventhe user manual indicates that it hasn't been evaluated in patients with dialysis. He is wondering if he should wear it or not. Called patient back, left a message, and will ask Dr. Welsh to please advise. Discussed likely he can wear it, it just hasn't been evaluated in HD patients; discussed did find ems helicopter pilot study, in which patients on HD wore the sensor and that it did help find fluctuationsin BG while before, during, after HD. Will follow up. JIM Pope documented in this encounter Plan of Treatment Not on file documented as of this encounter Visit Diagnoses Not on filedocumented in this encounter Care Teams Visual Merchandising Associate Relationship Specialty Start Date End Date Lauri Barbosa, ADIEL [address] [place] [address] PCP - General Family Medicine 02/06/19 08/09/22 documented as of this encounter
--- OUTSIDE RECORDS SUMMARY | 2024-12-05 12:41 | XMS_ITS | Encounter Summary ---
Author Organization [facility] Address [facility] [place] [address] Care Team Providers Care Relationship Mgr Name Role Phone Lauri Barbosa DNP Primary Care Provider [phone] Encounter Details Date Type Department Care Team (Late st Contact Info) Description 08/21/2019 Telephone [place] [address] Ngozi Alvarado Social History Tobacco Use Types Packs/Day Years [...] encounter Miscellaneous Notes * Telephone Encounter - Ngozi Alvarado - 08/21/2019 9:19 AM EDT Returned patients call about rescheduling to a Wednesday or , let patient know he is currently scheduled for a Wednesday but if he needs to still reschedule to give us a call back. documented in this encounter Plan of Treatment Not on file documented as of this encounter Visit Diagnoses Not on filedocumented in this encounter Care Teams Relationship Mgr Relationship Specialty Start Date End Date Lauri Barbosa DNP [address] [place] [address] PCP - General Family Medicine 02/06/19 08/09/22 documented as of this encounter
--- OUTSIDE RECORDS SUMMARY | 2024-12-05 12:41 | XMS_ITS | Encounter Summary ---
Author Organization [facility] Address [facility] [place] [address] Care Team Providers Care Curb Attendant Name Role Phone Raul Karine Lauri CHUN Primary Care Provider [phone] Encounter Details Date Type Department Care Team (Late st Contact Info) Description 07/11/2019 8:00 AM EDT [place] [address] Jossy Sen APRN [facility] [place] [address] TIA (transient ischemic attack); Cigarette smoker Social History Tobacco Use Types Packs/Day Years [...] Sign Reading Time Taken Comments Blood Pressure 117/58 07/11/2019 7:57 AM EDT Pulse 65 07/11/2019 7:57 AM EDT Temperature - - Respiratory Rate - - Oxygen Saturation - - Inhaled Oxygen Concentration - - Weight 92.6 kg (204 lb 3.2 oz) 07/11/2019 7:57 A M EDT Height 177.8 cm (5' 10) 07/11/2019 7:57 AM EDT reported Body Mass Index 29.3 07/11/2019 7:57 AM EDT documented in this encounter Progress Notes * Jossy Sen APRN - 07/11/2019 8:00 AM EDT Cerebrovascular Disease and Stroke Program [place] [address] t: [phone] / f: [phone] Patient ID: Gerson Bruner is a 53 y.o. year old male followed in the vascular neurology/stroke clinic for TIA (right sided weakness and numbness - 02/2019) likely secondary to small vessel disease. Patient Active Problem List Diagnosis ??? Right sided numbness ??? CKD (chronic [...] smoker ??? Unspecified hearing loss Subjective: Xander was last seen in March 2019 at which time I recommended/ordered MRI for 3 days of dizziness and visual disturbance episodes. This was never completed. Pt reports those resolved and he has had no further episodes. He denies any repeat neurologic events since our last visit concerning for TIA, stroke, seizure of ICH. and no emergency room visits or hospital admission. He reports good medication compliance. Reports bright red blood in stool 3 times per month. Is not sure if hemorrhoids or what.Has referral for colonoscopy in our system but no one has called him. He continues smoking cigarettes and marijuana regularly. Diabetes: not checking blood sugars regularly but reports better choices with diet. Denies any symptoms of high or low blood sugars. States he has lost about 6lbs. Blood Pressure: does not check regularly but has been good as far as he knows with his dialysis andother appts. Review of systems: Constitutional: No fevers or chills, no dizziness Eyes: No vision changes, no diplopia, no blurry vision ENT: No rhinorrhea or pharyngitis, no meningismus CV: No chest pain or palpitations Resp: No cough, no shortness of breath GI: No nausea, vomiting, diarrhea or constipation : No dysuria, no incontinence Heme: +infrequent BRB LA, no other bleeding or bruising Endo: + diabetes, no thyroid disease Neuro: Weight & appetite: +6lb weight loss, good appetite Swallowing & speech: no trouble Sleep: good Musculoskeletal (Strength, cramping, or fasciculations): +neuropathy bilateral hands and feet Psych/Cognitive: Denies depression [x] Review of systems otherwise negative Past Social Hx: Current Smoker ETOH: None Drugs: +marijuana Resides: lives w/ On disability for his CKD Meds: Outpatient Encounter Medications as of 07/11/2019 Medication Sig Dispense Refill ??? SoNetJobSTYLE DERICK 14 DAY READER Misc Use to [...] tablet 3 ??? blood sugar diagnostic strips (QuriUCH ULTRA TEST) Strip 1 each by Other [...] 1 tablet by mouth daily. ??? Insulin [place], Disposable, 31 X 5/16 Needle Inject 1 each subcutaneously 2 times daily (before meals). 100 each 11 No facility-administered encounter medications on file as of 07/11/2019. Objective: Blood Pressure 117/58 (BP Location (NBP): Right arm, Patient Position: Sitting, BP Cuff Sizes: Adult (25-34 cm)) Pulse 65 Height 177.8 cm (5' 10) Comment: reported Weight 92.6 kg (204 lb 3.2 oz) Body Mass Index 29.30 kg/m?? Constitutional: Patient of apparent stated age, NAD CV: RRR, S1, S2, no murmur Resp: Clear bilaterally Neuro: MS: Alert, oriented, clear language, no dysarthria CN: PERRL, EOMI, visual marti full, trigeminal sensation intact, no facial asymmetry, hearing intact to whisper, palate elevates symmetrically, tongue protrudes midline, SCM and trap strength intact Motor: 5/5 all extremities, no drift or asymmetry Sensation: Intact to light touch and temperature diffusely with decreased sensation BLE stocking distribution Reflexes: Not assessed Gait: steady Assessment/Plan: Gerson Bruner is a 53 y.o. year old male with PMHx of [...] remains neurologically stable with no repeat events. Exam is nonfocal today aside from severe peripheral neuropathy. Blood pressure is within goal today. Gerson should continue on aspirin and statin for secondary stroke prevention going forward and most importantly smoking cessation and improvedcontrol of his DMII. #TIA #Small vessel disease -Continue aspirin 81mg daily -Continue atorvastatin 40mg daily -Endocrinology for uncontrolled and worsening DMII -Mobility: no rehab needs -Fall risk: low -Weight/appetite:stable -Resp/sleep: good -Mood: good -Neurocognitive symptoms: no cognitive impairments ?? Discussion held regarding current smoking status [...] agreement with our plan. Return for followup in 1 year. Jossy Sen APRN #[id number] [place] [address] documented in this encounter Plan of Treatment Not on file documented as of this encounter Visit Diagnoses Diagnosis TIA (transient ischemic attack) Unspecified transient cerebral ischemia Cigarette smoker Tobacco use disorder documented in this encounter Care Teams Curb Attendant Relationship Specialty Start Date End Date Lauri Barbosa DNP [address] [place] [address] PCP - General Family Medicine 02/06/19 08/09/22 documented as of this encounter
--- OUTSIDE RECORDS SUMMARY | 2024-12-05 12:41 | XMS_ITS | Encounter Summary ---
Author Organization [facility] Address [facility] [place] [address] Care Team Providers Care Copier Repair Technician Name Role Phone Raul KarineLauri jansen ADIEL Primary Care Provider [phone] Reason for Visit * Reason Onset Date Comments Other 02/07/[address] art Encounter Details Date Type Department Care Team (Late st Contact Info) Description 02/07/2019 Telephone Nephrology [place] [phone] Marichuy So, VIDYA Other (Outpatient HD start) Social History Tobacco Use Types Packs/Day Years [...] encounter Miscellaneous Notes * Telephone Encounter - Akua Rodriguez RN - 02/10/2019 11:09 AM EDT UPDATE of DIALYSIS INITIATION TIME Received updated dialysis time from [facility]. Called [facility] dialysis and confirmed with Stephanie. He is expected to start on WednesdayFebruary 14 with arrival time of 12:15 (not 11 as previously stated) I called patient at 11:11 am on Wednesday to let him know about the time change. He acknowledges and agrees to start HD at 12:15 on Wednesday09/16/19. * Telephone Encounter - Marichuy So RN - 02/07/2019 9:45 AM EDT Plan for Outpatient Dialysis Initiation Clinical Records faxed to [facility] @ [phone] Date Sent Comments [facility] patient admission form 02/07/19 Demographics 02/07/19 Medication and Allergy list 02/07/19 Clinic Note 02/07/19 Note for 10/24/18 sent, note from 02/06 not available Hepatitis B result 02/07/19 Neg 02/06/19 CXR EKG Insurance clearance date: 02/09/19 DialysisAccess: Fistula Fistula/Graft Site Left brachiocephalic [facility] Date Sent Comments Vascular Access Surgery Note or Interventional Radiology Note 02/07/19 Dialysis Orders 02/08/19 MD: Liset Khan - Orders sent to [facility] Date/Time for first dialysis treatment: Wednesday02/14/19 11 am chair time [facility] [place] Transportation Plans: will provide/arrange transport Plan communicated to patient and family: 02/09/19 1430 Call to Xander to review plan for starting HD. Xander agrees that despite being nervous he is ready to start HD and expresses understanding of plan documented in this encounter Plan of Treatment Not on file documented as of this encounter Visit Diagnoses Not on filedocumented in this encounter Care Teams Copier Repair Technician Relationship Specialty Start Date End Date Lauri Barbosa DNP [address] [place] [address] PCP - General Family Medicine 02/06/19 08/09/22 documented as of this encounter
--- OUTSIDE RECORDS SUMMARY | 2024-12-05 12:41 | XMS_ITS | Encounter Summary ---
Author Organization [facility] Address [facility] [place] [address] Care Team Providers Care Parking Meter Servicer Name Role Phone Lauri Barbosa DNP Primary Care Provider [phone] Encounter Details Date Type Department Care Team (Late st Contact Info) Description 02/06/2019 Telephone [place] [address] Debra Akins RN Social History Tobacco Use Types Packs/Day [...] encounter Miscellaneous Notes * Telephone Encounter - Debra Stafford RN - 02/06/2019 3:03 PM EDT VM left for Xander for him to return call regarding maintaining smoking cessation. documented in this encounter Plan of Treatment Not on file documented as of this encounter Visit Diagnoses Not on filedocumented in this encounter Care Teams Parking Meter Servicer Relationship Specialty Start Date End Date Lauri Barbosa DNP [address] [place] [address] PCP - General Family Medicine 02/06/19 08/09/22 documented as of this encounter
--- OUTSIDE RECORDS SUMMARY | 2024-12-05 12:41 | XMS_ITS | Encounter Summary ---
Author Organization [facility] [place] [address] Care Team Providers Care Automotive Paint Technician Name Role Phone Lauri Barbosa DNP Primary Care Provider [phone] Encounter Details Date Type Department Care Team (Late st Contact Info) Description 02/17/2019 Abstract [place] [address] Marichuy So RN Social History Tobacco Use Types Packs/Day [...] on filedocumented in this encounter Care Teams Automotive Paint Technician Relationship Specialty Start Date End Date Lauri Barbosa DNP [address] [place] [address] PCP - General Family Medicine 02/06/19 08/09/22 documented as of this encounter
--- OUTSIDE RECORDS SUMMARY | 2024-12-05 12:41 | XMS_ITS | Encounter Summary ---
Author Organization [facility] Address [facility] [place] [address] Care Team Providers Care Traffic Court Magistrate Name Role Phone Raul Karine Lauri CHUN Primary Care Provider [phone] Reason for Visit * Reason Onset Date Comments Appointment 08/18/2019 Encounter Details Date Type Department Care Team (Late st Contact Info) Description 08/18/2019 Telephone [place] [phone] Andre Lucero Appointment Social History Tobacco Use Types Packs/Day Years [...] encounter Miscellaneous Notes * Telephone Encounter - Andre Lucero - 08/18/2019 12:51 PM EDT Caller and relationship to patient (if other than patient): Gerson Bruner Best time to reach caller: anytime Message or Reason for Call: patient needs to reschedule his Colonoscopy to a Wednesday or . Patient's dialysis days changed due to . 09/17 09/19 09/22 Appt Needed and Reason: reschedule Provider: Madhuri documented in this encounter Plan of Treatment Not on file documented as of this encounter Visit Diagnoses Not on filedocumented in this encounter Care Teams Traffic Court Magistrate Relationship Specialty Start Date End Date Lauri Barbosa, ADIEL [address] [place] [address] PCP - General Family Medicine 02/06/19 08/09/22 documented as of this encounter
--- OUTSIDE RECORDS SUMMARY | 2024-12-05 12:41 | XMS_ITS | Encounter Summary ---
Author Organization [facility] Address [facility] [place] [address] Care Team Providers Care Manager Of Supply Chain Name Role Phone Raul Karine Lauri CHUN Primary Care Provider [phone] Reason for Visit * Auth/Cert Specialty Diagnoses / Procedures Referred By Nader gardiner Referred To Contact Diagnoses Right sided numbness WEAKNESS / STROKE VS C-SPINE ISSUES Procedures EMERGENCY IPI Referral ID Status Reason Start Date Expiration Date Visits Re quested Visits Authorized [id number] 1 1 Encounter Details Date Type Department Care Team (Latest Contact Info) Description 03/07/2019 5:30 AM EDT - 03/07/2019 11:59 PM EDT Hospital Encounter Non-Invasive [place]iology [place] [phone] Discharge Disposition: Home Social History Tobacco Use [...] on file documented as of this encounter Medications at Time of Discharge [...] 1 tablet by mouth daily. 02/25/2024 Insulin [place], Disposable, 31 X 5/16 Needle Inject 1 each subcutaneously 2 times daily (before meals). 100 each 11 07/19/2014 02/25/2024 documented as of this encounter Plan of Treatment Not on file documented as of this encounter Procedures Procedure Name Priority Date/Time Associated Diagnosis Comments POCT GLUCOSE Routine 03/08/2019 12:48 AM EDT POCT GLUCOSE Routine 03/07/2019 8:23 PM EDT POCT GLUCOSE Routine 03/07/2019 4:53 PM EDT POCT GLUCOSE Routine 03/07/2019 2:30 PM EDT POCT GLUCOSE Routine 03/07/2019 1:56 PM EDT POCT GLUCOSE Routine 03/07/2019 11:43 AM EDT POCT GLUCOSE Routine 03/07/2019 11:41 AM EDT ECHO COMPLETE W CONTRAST Routine 03/07/2019 10:27 AM EDT Right sided numbness documented in this encounter Results * POCT Glucose (03/08/2019 12:48 AM EDT) Glucose, POC 177 65 - 199 mg/dL [facility] Comment: Supplemental ranges: <140 mg/dL before meals <180 mg/dL all other times of the day Blood specimen (specimen) 03/08/2019 12:48 AM EDT 03/08/2019 12:[address] Rei Gasca MD POINT OF CARE TEST O RDERABLES [facility] [place] [address] * (ABNORMAL) POCT Glucose (03/07/2019 8:23 PM EDT) Glucose, POC 216(H) 65 - 199 mg/dL [facility] Comment: Supplemental ranges: <140 mg/dL before meals <180 mg/dL all other times of the day Blood specimen (specimen) 03/07/2019 8:23 PM EDT 03/07/2019 8:[address] Rei Gasca MD POINT OF CARE TEST O CARMELITA Performing Organization Address [facility] Co de Phone Number [facility] [place] [address] * (ABNORMAL) POCT Glucose (03/07/2019 4:53 PM EDT) Glucose, POC 235(H) 65 - 199 mg/dL [facility] Comment: Supplemental ranges: <140 mg/dL before meals <180 mg/dL all other times of the day Blood specimen (specimen) 03/07/2019 4:53 PM EDT 03/07/2019 4:[address] Rei Gasca MD POINT OF CARE TEST O CARMELITA Performing Organization Address [facility] Co de Phone Number [facility] [place] [address] * POCT Glucose (03/07/2019 2:30 PM EDT) Glucose, POC 133 65 - 199 mg/dL [facility] Comment: Supplemental ranges: <140 mg/dL before meals <180 mg/dL all other times of the day Blood specimen (specimen) 03/07/2019 2:30 PM EDT 03/07/2019 2:[address] Rei Gasca MD POINT OF CARE TEST O CARMELITA Performing Organization Address [facility] Co de Phone Number [facility] [place] [address] * POCT Glucose (03/07/2019 1:56 PM EDT) Glucose, POC 75 65 - 199 mg/dL [facility] Comment: Supplemental ranges: <140 mg/dL before meals <180 mg/dL all other times of the day Blood specimen (specimen) 03/07/2019 1:56 PM EDT 03/07/2019 1:[address] Rei Gasca MD POINT OF CARE TEST O CARMELITA Performing Organization Address [facility] Co de Phone Number [facility] [place] [address] * POCT Glucose (03/07/2019 11:43 AM EDT) Glucose, POC 81 65 - 199 mg/dL [facility] Comment: Supplemental ranges: <140 mg/dL before meals <180 mg/dL all other times of the day Blood specimen (specimen) 03/07/2019 11:43 AM EDT 03/07/2019 11:[address] Rei Gasca MD POINT OF CARE TEST O CARMELITA Performing Organization Address [facility] de Phone Number [facility] [place] [address] * POCT Glucose (03/07/2019 11:41 AM EDT) Glucose, POC 87 65 - 199 mg/dL [facility] Comment: Supplemental ranges: <140 mg/dL before meals <180 mg/dL all other times of the day Blood specimen (specimen) 03/07/2019 11:41 AM EDT 03/07/2019 11:[address] Rei Gasca MD POINT OF CARE TEST O CARMELITA Performing Organization Address [facility] de Phone Number [facility] [place] [address] documented in this encounter Visit Diagnoses Not on filedocumented in this encounter Administered Medications Inactive Administered Medications - up to 3 most recent administrations Medication Order MAR Action Action Date Dose Rate Site perflutren protein-A microspheres (OPTISON) 0.22 mg/mL injection 0.5 mL 0.5 mL, Intravenous, ONCE PRN, 1 dose, Starting on Wed03/07/19 at 1028, Until Wed03/07/19 at 1000, for enhancement of sub-optimal echo images, Echo Lab (Intra-Procedure), Routine Given 03/07/2019 10:00 AM EDT 0.5 mLs documented in this encounter Care Teams Manager Of Supply Chain Relationship Specialty Start Date End Date Lauri Barbosa, ADIEL [facility] [address] [place] [address] PCP - General Family Medicine 02/06/19 08/09/22 documented as of this encounter
--- OUTSIDE RECORDS SUMMARY | 2024-12-05 12:41 | XMS_ITS | Encounter Summary ---
[place] [address] Care Team Providers Care Engineering Design Manager Name Role Phone Bakari Adeola Laura DUNN Primary Care Provider [phone] Encounter Details Date Type Department Care Team (Late st Contact Info) Description 02/02/2019 Orders Only [place] [address] Marichuy So RN CKD (chronic kidney disease) stage 4, GFR [...] documented as of this encounter Results * Gold Tube HOLD (02/06/2019 3:22 PM EDT) Gold Hold Sample in lab. [facility] Blood specimen (specimen) 02/06/2019 3:22 PM EDT 02/06/2019 3:28 PM EDT Gisele Mosqueda MD CHEMISTRY ORDERABLES [facility] [place] [address] * PTH (02/06/2019 3:22 PM EDT) Parathyroid Hormone 45 15 - 65 pg/mL [facility] Blood specimen (specimen) 02/06/2019 3:22 PM EDT 02/06/2019 3:28 PM EDT Narrative Resulting Agency Comment Spec In Lab Gisele Mosqueda MD CHEMISTRY ORDERABLES Performing Organization Address [facility] Co de Phone Number [facility] [place] [address] * Uric acid (02/06/2019 3:22 PM EDT) Uric Acid 6.5 3.5 - 8.5 mg/dL [facility] Blood specimen (specimen) 02/06/2019 3:22 PM EDT 02/06/2019 3:28 PM EDT Narrative Resulting Agency Comment Spec In Lab Gisele Mosqueda MD CHEMISTRY ORDERABLES Performing Organization Address [facility] Co de Phone Number [facility] [place] [address] * Albumin Level (02/06/2019 3:22 PM EDT) Albumin 3.8 3.2 - 5.2 gm/dL [facility] Blood specimen (specimen) 02/06/2019 3:22 PM EDT 02/06/2019 3:28 PM EDT Narrative Resulting Agency Comment Spec In Lab Gisele Mosqueda MD CHEMISTRY ORDERABLES Performing Organization Address City/[facility] Co de Phone Number [facility] [place] [address] * (ABNORMAL) Phosphorus (02/06/2019 3:22 PM EDT) Phosphorus 7.3(H) 2.5 - 4.5 mg/dL [facility] Blood specimen (specimen) 02/06/2019 3:22 PM EDT 02/06/2019 3:28 PM EDT Narrative Resulting Agency Comment Spec In Lab Gisele Mosqueda MD CHEMISTRY ORDERABLES [facility] [place] [address] * (ABNORMAL) Basic Metabolic Panel (non-fasting) (02/06/2019 3:22 PM EDT) Glucose 445(H) 65 - 199 mg/dL [facility] Comment:Diabetes: >=200 mg/d L plus symptoms Blood Urea Nitrogen 79(H) 10 - 20 mg/dL [facility] Creatinine 5.16(H) 0.80 - 1.50 mg/dL [facility] Sodium 136 135 - 145 mmol/L [facility] Potassium 4.9 3.5 - 5.0 mmol/L [facility] Comment: Please note: ??Patients with WBC >100,000 may have falsely elevated Potassium levels. ??For accurate Potassium quantification in these patients send serum separator tube (gold top) for subsequent determinations. ??Contact the Clinical Chemistry Laboratory if there are any questions. Chloride 94(L) 98 - 107 mmol/L [facility] Carbon Dioxide 28 22 - 31 mmol/L [facility] Anion Gap 14 5 - 15 mmol/L [facility] Calcium 10.0 8.5 - 10.5 mg/dL [facility] Est Glomerular Filtration Rate 12(L) >=60 mL/min/1. 73 m?? [facility] Comment: The eGFR was calculated using the CKD-EPI equation. As with all creatinine based estimates of kidney function, eGFR values calculated with the CKD-EPI equation are not accurate in patients with acute kidney failure, extremes of body mass or the acutely ill. http://[employer]/DHMCnkf eGFR 14(L) >=60 mL/min/1. 73 m?? [facility] Comment: The eGFR was calculated using the CKD-EPI equation. As with all creatinine based estimates of kidney function, eGFR values calculated with the CKD-EPI equation are not accurate in patients with acute kidney failure, extremes of body mass or the acutely ill. http://[employer]/DHMCnkf Blood specimen (specimen) 02/06/2019 3:22 PM EDT 02/06/2019 3:28 PM EDT Narrative Resulting Agency Comment Spec In Lab Gisele Mosqueda MD CHEMISTRY ORDERABLES Performing Organization Address City/[facility]/ZIP Co de Phone Number [facility] [place] [address] * (ABNORMAL) Protein/Creatinine Ratio, urine (02/06/2019 3:17 PM EDT) Creatinine, Urine 33 mg/dL [facility] Protein, Urine 218(H) 0 - 12 mg/dL [facility] Protein / Creatinine Ratio, Urine 6.[address] [facility] Urine specimen (specimen) 02/06/2019 3:17 PM EDT 02/06/2019 3:21 PM EDT Narrative Resulting Agency Comment Spec In Lab Gisele Mosqueda MD URINE ORDERABLES Performing Organization Address [facility] Co de Phone Number [facility] [place] [address] documented in this encounter Visit Diagnoses Diagnosis CKD (chronic kidney disease) stage 4, GFR 15-29 ml/min Chronic kidney disease, Stage IV (severe) documented in this encounter Care Teams Engineering Design Manager Relationship Specialty Start Date End Date Adeola Villegas APRN PCP - General Family Medicine 01/13/17 02/05/19 documented as of this encounter
--- OUTSIDE RECORDS SUMMARY | 2024-12-05 12:41 | XMS_ITS | Encounter Summary ---
Author Organization [facility] Address [facility] [place] [address] Care Team Providers Care Manufacturer Agent Name Role Phone Raul KarineLauri ADIEL Primary Care Provider [phone] Encounter Details Date Type Department Care Team (Latest Contact Info) Description 09/26/2019 2:14 PM EST - 09/26/2019 4:56 PM EST Hospital En[place] [address] Kaye Gibbs MD [facility] [place] [address] Discharge Disposition: Home Social History Tobacco Use [...] Sign Reading Time Taken Comments Blood Pressure 177/82 09/26/2019 4:40 PM EST Pulse 64 09/26/2019 3:45 PM EST Temperature 36.9 ??C (98.4 ??F) 09/26/2019 2:33 PM ES T Respiratory Rate 16 09/26/2019 4:15 PM EST Oxygen Saturation 95% 09/26/2019 4:40 PM EST Inhaled Oxygen Concentration - - Weight 93 kg (205 lb) 09/26/2019 2:33 PM EST Height 177.8 cm (5' 10) 09/26/2019 2:33 PM EST Body Mass Index 29.41 09/26/2019 2:33 PM EST documented in this encounter Discharge Instructions * Attachments The following attachments cannot be sent through Care Everywhere. * Colonoscopy: Post-op ([place]) documented in this encounter Medications at Time [...] 1 tablet by mouth daily. 02/25/2024 Insulin [place], Disposable, 31 X 5/16 Needle Inject 1 [...] 09/26/2019 3:24 PM EST Colonoscopy, Sonu Brown ([id number]) 09/26/2019 3:00 PM EST Screening COLONOSCOPY Routine 09/26/2019 2:48 PM EST POCT GLUCOSE Routine 09/26/2019 2:41 PM EST documented in this encounter Results * Specimen to Pathology (09/26/2019 3:50 PM EST) AP Specimen 09/26/2019 3:50 PM EST 09/26/2019 3:50 PM EST Narrative [facility] - 09/26/2019 3:50 PM EST Specimen requisition ordered. ??Separate Pathology report to follow Kaye Gibbs MD PATHOLOGY/CYTOLOGY O CARMELITA Performing Organization Address [facility] [place] [address] * Specimen to Pathology (09/26/2019 3:50 PM EST) AP Specimen 09/26/2019 3:50 PM EST 09/26/2019 3:50 PM EST Narrative [facility] - 09/26/2019 3:50 PM EST Specimen requisition ordered. ??Separate Pathology report to follow Kaye Gibbs MD PATHOLOGY/CYTOLOGY O CARMELITA Performing Organization Address [facility] de Phone Number [facility] [place] [address] * Specimen to Pathology (09/26/2019 3:50 PM EST) AP Specimen 09/26/2019 3:50 PM EST 09/26/2019 3:50 PM EST Narrative [facility] - 09/26/2019 3:50 PM EST Specimen requisition ordered. ??Separate Pathology report to follow Kaye Gibbs MD PATHOLOGY/CYTOLOGY Vita MAE Performing Organization Address [facility] de Phone Number [facility] [place] [address] * Surgical Pathology Report (09/26/2019 3:24 PM EST) Final Diagnosis [id number] ? Location: 4T; EA12; A The signing [...] Do MD Verified: ??10/02/2019 ?Pathologist Performed at: ??-[facility] Dept. of Pathology, [place], [place] CLINICAL INFORMATION Specimen Submitted: A - [...] labeled C1. ??sns 10/02/2019 2:58 PM EST [facility] GI Biopsy 09/26/2019 3:24 PM EST 09/26/2019 3:24 PM EST GI Biopsy 09/26/2019 3:24 PM EST 09/26/2019 3:24 PM EST GI Biopsy 09/26/2019 3:24 PM EST 09/26/2019 3:24 PM EST Kaye Gibbs MD PATHOLOGY/CYTOLOGY O RDMARISOLBLES [facility] [place] [address] * COLONOSCOPY (09/26/2019 2:48 PM EST) Pathologist [facility] COLONOSCOPY [facility] Endoscopy Procedure Date: 09/26/2019 2:48 PM ? Patient Name: Gerson Bruner ? [facility]: [id number] ? Date of : 1965 ? Age: 53 ? Order #: [id number] ? Instrument Name: [id number] ? Procedure: ? Colonoscopy Indications: ? High risk colon cancer surveillance: ? Personal history of colonic polyps Providers: ? Kaye Gibbs MD, Kiel Sanchez ? Justina, VIDYA, Thee Rodarte MD: ?Lauri Carter Karine Medicines: ? Midazolam 6 mg IV, [...] preparation was evaluated using ? the BBPS ([place] Bowel Preparation ? Scale) with scores of: [...] Procedure Code(s): ?? --- Professional --- ? 80906, Colonoscopy, flexible; with ? removal of tumor(s), polyp(s), or ? other lesion(s) by snare technique CPT copyright 2017 [employer]. All rights reserved. The codes documented in this report are preliminary and upon kinesiologist review may be revised to meet current compliance requirements. Attending Participation: ? I personally performed the entire procedure. ? Kaye Gibbs MD Kaye Gibbs MD 09/26/2019 4:02:26 PM This report has been signed electronically. Number of Addenda: 0 Note Initiated On: 09/26/2019 2:48 PM [employer]ATION 09/26/2019 2:48 PM EST Lauri Milton DNP GENERAL SURGICAL OR DERABLES Performing Organization Address [facility]/ZIP Co de Phone Number [employer]ATION * POCT Glucose (09/26/2019 2:41 PM EST) Glucose, POC 122 65 - 199 mg/dL [facility] Comment: Supplemental ranges: <140 mg/dL before meals <180 mg/dL all other times of the day Blood specimen (specimen) 09/26/2019 2:41 PM EST 09/26/2019 2:41 PM EST Kaye Gibbs MD POINT OF CARE TEST O RDERABLES Performing Organization Address [facility] Co de Phone Number [facility] [place] [address] documented in this encounter Visit Diagnoses Not on filedocumented in this encounter Administered Medications Inactive Administered Medications - up to 3 most recent administrations Medication Order MAR Action Action Date Dose Rate Site lactated ringers infusion 100 mL/hr, Intravenous, CONTINUOUS, Starting on Wed09/26/19 at 1500, Until Wed09/26/19 at 1656, Endoscopy (Day of Procedure) New Bag 09/26/2019 3:00 PM EST 100 mL/hr 100 mL/hr documented in this encounter Active and Recently Administered Medications Times are shown in EST. Continuous Medication Order 09/24/2019 09/25/2019 09/26/2019 lactated ringers infusion (CANCELED) 100 mL/hr, Intravenous, CONTINUOUS, Starting on Wed09/26/19 at 1500, Until Wed09/26/19 at 1656, Endoscopy (Day of Procedure) 1500 (New Bag - Prov ider: Blanca Manrique RN) PRN Medication Order 09/24/2019 09/25/2019 09/26/2019 fentaNYL 50 mcg/mL multi-dose injection (CANCELED) ONCE PRN, Starting on Wed09/26/19 at 1504, Until Wed09/26/19 at 1857, Intra-Operative (Intra-Procedure), Routine 1504 (Given - Provid er: Kiel Horn RN)1510 (Given - Provider: Kiel Horn RN)1514 (Given - Provider: Kiel Horn RN)1518 (Given - Provider: Kiel Horn RN)1523 (Given - Provider: Kiel Horn RN) midazolam (PF) (VERSED) multi-dose injection (CANCELED) ONCE PRN, Starting on Wed09/26/19 at 1504, Until Wed09/26/19 at 1857, Intra-Operative (Intra-Procedure), Routine 1504 (Given - Provid er: Kiel Horn RN)1505 (Given - Provider: Kiel Horn RN)1509 (Given - Provider: Kiel Horn RN)1514 (Given - Provider: Kiel Horn RN)1517 (Given - Provider: Kiel Horn RN)1523 (Given - Provider: Kiel Horn RN) documented in this encounter Care Teams Manufacturer Agent Relationship Specialty Start Date End Date Lauri Barbosa DNP [facility] [address] [place] [address] PCP - General Family Medicine 02/06/19 08/09/22 documented as of this encounter
--- OUTSIDE RECORDS SUMMARY | 2024-12-05 12:41 | XMS_ITS | Encounter Summary ---
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, with long-term current use of insulin Izaiah Welsh MD [facility] [place] [place] [address] [facility] [place] [address] Referral ID Status Reason Start Date Expiration Date V isits Requested Visits Authorized [id number] Closed Continuity of Care 05/04/2019 05/03/2020 1 1 Reason for Visit * Reason Comments Diabetes * Consultation (Urgent) - Specialty Diagnoses / Procedures Referred By Nader gardiner Referred To Contact Endocrinology Diagnoses Type 2 diabetes mellitus with hyperglycemia, with long-term current use of insulin Gisele Mosqueda MD [facility] NE[facility] [address] Endocrinology [address] [place] [address] Referral ID Status Reason Start Date Expiration Date V isits Requested Visits Authorized [id number] Consult, Test & Treat 02/06/2019 02/06/2020 1 1 Encounter Details Date Type Department Care Team (Late st Contact Info) Description 05/04/2019 1:00 PM EDT Office Visit Endocrinology [place] [address] Izaiah Welsh MD [facility] [place] [address] 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, with long-term current use of insulin; Vitamin D deficiency; Mixed hyperlipidemia; Chronic fatigue Social History Tobacco Use Types Packs/Day Years [...] Sign Reading Time Taken Comments Blood Pressure 115/68 05/04/2019 1:15 PM EDT Pulse 68 05/04/2019 1:15 PM EDT Temperature - - Respiratory Rate 17 05/04/2019 1:15 PM EDT Oxygen Saturation 99% 05/04/2019 1:15 PM EDT Inhaled Oxygen Concentration - - Weight 95.3 kg (210 lb) 05/04/2019 1:15 PM EDT Height 177.8 cm (5' 10) 05/04/2019 1:15 PM EDT Body Mass Index 30.13 05/04/2019 1:15 PM EDT documented in this encounter Patient Instructions * Patient Instructions* Izaiah Welsh MD - 05/04/2019 1:00 PM EDT LAB TODAY GO HOT BREAD BAKER MARIS CGM AT YOUR PHARMACY TODAY! SEE AGAIN in 4 weeks Recommendation: 1. Medication: Patient will start taking Humalog pen 1u:5 gm carb for each meal and extra for high BG based on 1U:20 BG ratio if BG >170 before each meal and at bedtime (about every 4 hours). Simple sliding scales were given, practiced and explained in details. Patient was advised of proper dosage, how to takethe medication properly, precautions, and potential complication of the medication prescribed. Patient is allowed to adjust levemir dose by 5-10 units every 2 days until fasting BG at target of 90-150 mg/dl per protocol. To continue all other medications. 2. Monitoring: to continue to monitor finger stick blood glucose before each meal and at bedtime. Target BG 80-150 fasting, 80-150 pre-meal and below 180-200 if checking 1-2 h post meal. Target A1c < 7% for this patient. I am recommending this patient get a Maris CGM for personal use: Patient is on Multiple Daily Injections: Diagnosis: Diabetes Mellitus Patient performs SMBG at least 4x per day Patient administers 3 or more insulin injections per day Patient frequently adjusts meal time insulin doses Patient needs a therapeutic CGM I plan to see this pt every 6 months following this initial prescription of the CGM to assess adherence to their CGM regimen and diabetes treatment plan. 3. Refer to see our menu planner, Jeaneth Felipe RD for carb counts and Llibre CGM teaching too today 4. Diet and exercise: Patient was counselled on medical nutritional therapy, the importance of complying with diabetes medications as well as low fat/low carb diet & exercise as tolerated to keepweight down or at least stable. Info on carb counting was discussed and given to the patient today. Patient will keep log of blood glucose, carb intake and insulin used for review at next viit. 5. Prevention: Patient was counselled on importance of yearly ophtalmologist and foot maintenance, checking daily for ulcers, keeping feet warm and dry and to monitor for loss of sensation. Blood pressure target with DM is below 140/90 and patient is currently meeting this goal. Patient should continue JUAN inhibitor or ARB for its renal protective effects. Lipid profile with target LDL below 100 for diabetic patients and below 70 with CAD and patient is currently meeting this goal. 6. Lab: to check lab for A1c, c-peptide, TSH, BMP, phos, dLDL, 25vitamin D as baseline today.. We will let patient know test lab test results and adjust medication if needed during this interim. Orders Placed This Encounter Procedures ??? Hemoglobin A1c ??? C-peptide ??? Basic Metabolic Panel (non-fasting) ??? Phosphorus ??? Vitamin D, 25-Hydroxy ??? LDL Cholesterol, Direct ??? TSH ??? Referral to Nutrition Services 6. RTC: Next visit within 1 month for close follow-up with Goldie Dunham DNP, CDE with Jeaneth Felipe RD so we can help adjust DM medication regimen closely further. documented in this encounter Progress Notes * Izaiah Welsh MD - 05/04/2019 1:00 PM EDT New Diabetes Evaluation Date of Consultation: 05/04/2019 Patient: Name: Gerson Bruner : 1965 PCP: Lauri Milton APRN Reason for Consult: Gerson Bruner presents to establish care in consultation for uncontrolled type2 DM on dialysis and on the list for kidney transplant. (PCP = Dr Lauri Milton APRN). Also, history of tobacco use and painful peripheral neuropathy on top of end stage CKD. Reminder: the patient has hearing loss. He used to see Blanca Palomares SHOESHINER here long ago once on 07/19/2014. I have reviewed the available records, interviewed and examined the patient. Brief History of Present Illness: Gerson Bruner is a very pleasant 53 y.o. male with the following problem list: Patient Active Problem List Diagnosis Code ??? [...] ml/min N18.5 ??? Right sided numbness R20.0 Diabetes History: Gerson Bruner is a 53 y.o. male with PMHx of diabetes (insulin dependent, with nephropathy) diagnosed over 30 yrs ago on insulin using lantus or Levemir and Humalog pens. Also hypertension, CKD stage V (secondary to diabetic nephropathy- currently on dialysis), HLP, anemia, vitD deficiency, TIA with right sided weakness and numbness due to small vessel disease (MRI negative for acute infarct) at recent admission in spring 2018. Current outpatient diabetes regimen: Medications: - Long acting insulin: Levemir 60 units qhs - Meal associated insulin: Humalog 0-12 units TID/QID per sliding scale => will start using insulin with a carb ratio of 1u: 5 g carb TID and sliding scale for BG> 170, correction factor:20 fornow BGFS Monitoring is done 3-4 times a day, ranging between 100s-400s mg/dl over the past 2 weeks. Most recent HbA1c was done on 02/25/19 and was high at 11.2%, suggesting an average glucose of 260 mg/dL for the past 8 weeks. Typical diet is: 2-3 meals and 0-1 snack a day (1 peach last night) Breakfast- 1 slice of toast and coffee with 1/4 cup of milk (no sugar) Lunch- often missed it. Sometime a sandwich Supper- largest meals with steak, potatoes 1.5 cup, pork chop, 1 peach Snack: 1 peach last night Diet plan: renal diet Typical exercise regimen is walking Trouble with hypoglycemia over the past 3 months ([]) no ([X]) yes Symptomatic when BG < 100( shaky, sweaty, dizzy, altered and hungry). Hypoglycemia happens rarely. Diabetes Complications Status: Patient has had all history of diabetic retinopathy, nephropathy, neuropathy. He still has leg cramps and his feet pain. States he has tried gabapentin and he thinks he has tried Cymbalta, amitriptyline, and Lyrica, but states nothing helps. Currently taking statin and an aspirin. ROS: Constitutional: + fatigue, +recent weight change. Endocrine: No thyroid problems Eyes: No recent vision change ENT: No dysphagia, dental issues, + hard of hearing Cardiovascular: No chest pain Respiratory: No wheezing, shortness of breath GI: No nausea, vomiting, diarrhea, constipation : low sexual desire/ED Integument: No ulcerations or easily bruising skin. Neurological: No weakness or numbness now s/p TIA in Jan 2019. No seizure, fainting or dizziness. Musculoskeletal: Some joint aches and muscle pain. Psych: No depression and anxiety Past medical history is significant for: Patient Active Problem List Diagnosis Code ??? [...] ml/min N18.5 ??? Right sided numbness R20.0 AMBULATORY MEDICATIONS: Current Outpatient Medications on File Prior to Visit Medication Sig Dispense Refill ??? HUMALOG KWIKPEN [...] tablet 3 ??? blood sugar diagnostic strips (CurbStand ULTRA TEST) Strip 1 each by Other [...] 1 tablet by mouth daily. ??? Insulin [place], Disposable, 31 X 5/16 Needle Inject 1 each subcutaneously 2 times daily (before meals). 100 each 11 No current facility-administered medications on file prior to visit. ADR/ALLERGIES: Allergies Allergen Reactions ??? Clindamycin Swelling. ??? Gabapentin swelling ??? Penicillins Unknown reaction as a child. ??? Pregabalin Other reaction(s): Unsure ??? Zoloft [Sertraline] Other reaction(s): Unsure SOCIAL HISTORY/HABITS Social History Socioeconomic History ??? Marital status: [...] file Gets together: Not on file Attends mandaeism service: Not on file Active member of [...] Social History Narrative ??? Not on file FAMILY HISTORY Family History Problem Relation Age of Onset ??? Diabetes Mother ??? Cancer Father ??? Diabetes Paternal Grandmother ??? Heart Disease Paternal Grandfather Mother was diagnosed with diabetes when she was in her 60's. Father from rectal cancer. Physical Exam BP 115/68 Pulse 68 Resp 17 Ht 177.8 cm (5' 10) Wt 95.3 kg (210 lb) SpO2 99% BMI 30.13 kg/m?? Appearance: Patient is very pleasant 53 y.o. male, non-obese, clinically euthyroid, not in acute distress, slightly pale, +hard of hearing. Skin - normal in texture and temperature, no acanthosis nigricans around the nape of the neck, no abnormal striae or ecchymosis. HEENT - PERRLA, EOMI, no lid lag. Neck - supple, no goiter or nodule, no lymphadenopathy Lungs - Normal chest expansion, no crackles or wheeze Heart - regular rhythm, normal apical impulse, normal S1, S2 and no murmur Abdomen - soft, non-tender, no abnormal mass. Extremities - no pitting edema, no proximal muscle weakness, reflexes were slightly depressed all. No foot ulcer. Psych: normal affect RECENT LABS: Results for GERSON BRUNER ( ) as of 05/04/2019 14:33 Ref. Range 10/17/2018 00:00 10/24/2018 13:06 02/06/2019 15:22 03/07/2019 05:04 03/08/2019 05:10 Hemoglobin A1C Latest Ref Range: 4.3 - 5.6 % 11.2 (H) Creatinine Latest Ref Range: 0.80 - 1.50 mg/dL 3.82 (External Lab) 4.15 (H) 5.16 (H) 5.07 (H) 3.79 (H) Calcium Latest Ref Range: 8.5 - 10.5 mg/dL 9.2 (External Lab) 8.6 10.0 8.5 8.5 Phosphorus Latest Ref Range: 2.5 - 4.5 mg/dL 4.4 7.3 (H) 5.8 (H) 4.7 (H) Uric Acid Latest Ref Range: 3.5 - 8.5 mg/dL 6.5 ALT Latest Ref Range: 0 - 55 unit/L 30 (External Lab) 21 19 Iron Saturation Latest Ref Range: 20 - 50 % 23 Chol, Total Latest Units: mg/dL 269 HDL Latest Units: mg/dL 46 Chol/HDL Ratio Latest Units: ratio 5.8 Triglycerides Latest Units: mg/dL 323 LDL Chol Direct Latest Units: mg/dL 187 Chol/HDL Interpretation Unknown See Note PTH Latest Ref Range: 15 - 65 pg/mL 154 (H) 45 Ref. Range 06/02/2018 15:22 C-Peptide Range: 0.8 - 5.2 ng/mL 2.7 Impression: Gerson Bruner is a 53 y.o. male with longstanding type 2 diabetes over 30 yrs (insulindependent, with nephropathy, painful peripheral neuropathy and retinopathy) on insulin using high dose Levemir and Humalog pen sliding scale but still has high A1c 11.2% requiring basal-bolus insulinregimen to prevent high BG post-meal during daytime. Also hypertension, CKD stage V (secondary to diabetic nephropathy-currently on dialysis), HLP, anemia, vitD deficiency, TIA with right sided weakness and numbness due to small vessel disease (MRI negative for acute infarct) at recent admission inspring 2019. He is on the list for kidney transplant so we need to keep him under good DM control soon. Recommendation: 1. Medication: Patient will start taking Humalog pen 1u:5 gm carb for each meal and extra for high BG based on 1U:20 BG ratio if BG >170 before each meal and at bedtime (about every 4 hours). Simple sliding scales were given, practiced and explained in details. Patient was advised of proper dosage, how to takethe medication properly, precautions, and potential complication of the medication prescribed. Patient is allowed to adjust levemir dose by 5-10 units every 2 days until fasting BG at target of 90-150 mg/dl per protocol. To continue all other medications. 2. Monitoring: to continue to monitor finger stick blood glucose before each meal and at bedtime. Target BG 80-150 fasting, 80-150 pre-meal and below 180-200 if checking 1-2 h post meal. Target A1c < 7% for this patient. I am recommending this patient get a Maris CGM for personal use: Patient is on Multiple Daily Injections: Diagnosis: Diabetes Mellitus Patient performs SMBG at least 4x per day Patient administers 3 or more insulin injections per day Patient frequently adjusts meal time insulin doses Patient needs a therapeutic CGM I plan to see this pt every 6 months following this initial prescription of the CGM to assess adherence to their CGM regimen and diabetes treatment plan. 3. Refer to see our menu planner, Jeaneth Felipe RD for carb counts and Llibre CGM teaching too today 4. Diet and exercise: Patient was counselled on medical nutritional therapy, the importance of complying with diabetes medications as well as low fat/low carb diet & exercise as tolerated to keepweight down or at least stable. Info on carb counting was discussed and given to the patient today. Patient will keep log of blood glucose, carb intake and insulin used for review at next viit. 5. Prevention: Patient was counselled on importance of yearly ophtalmologist and foot maintenance, checking daily for ulcers, keeping feet warm and dry and to monitor for loss of sensation. Blood pressure target with DM is below 140/90 and patient is currently meeting this goal. Patient should continue JUAN inhibitor or ARB for its renal protective effects. Lipid profile with target LDL below 100 for diabetic patients and below 70 with CAD and patient is currently meeting this goal. 6. Lab: to check lab for A1c, c-peptide, TSH, BMP, phos, dLDL, 25vitamin D as baseline today.. We will let patient know test lab test results and adjust medication if needed during this interim. Orders Placed This Encounter Procedures ??? Hemoglobin A1c ??? C-peptide ??? Basic Metabolic Panel (non-fasting) ??? Phosphorus ??? Vitamin D, 25-Hydroxy ??? LDL Cholesterol, Direct ??? TSH ??? Referral to Nutrition Services 6. RTC: Next visit within 1 month for close follow-up with Goldie Dunham DNP, CDE with Jeaneth Felipe RD so we can help adjust DM medication regimen closely further. We have reviewed our plan outlined above with the patient and patient verbalized understanding. Allquestions were answered, spent approximately 60 minutes together during today's visit, of which more than 50 minutes was spent in counseling about diet, carb counts, exercise, medications adjustment and proper use of DM medication, cardiac risk prophylaxis, the diagnostic and therapeutic decisions,and coordination of care. Thank you for allowing me to participate in the care of this very pleasant and interesting patient. 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, with long-term current use of insulin Ordered: 05/04/2019 documented as of this encounter Procedures Procedure Name Priority Date/Time Associated Diagnosis Comments VITAMIN D, 25-HYDROXY Routine 05/04/2019 3:02 PM EDT 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, with long-term current use of insulin Vitamin D deficiency Mixed hyperlipidemia Chronic fatigue C-PEPTIDE Routine 05/04/2019 3:02 PM EDT 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, with long-term current use of insulin Vitamin D deficiency Mixed hyperlipidemia Chronic fatigue TSH Routine 05/04/2019 3:02 PM EDT 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, with long-term current use of insulin Vitamin D deficiency Mixed hyperlipidemia Chronic fatigue PHOSPHORUS Routine 05/04/2019 3:02 PM EDT 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, with long-term current use of insulin Vitamin D deficiency Mixed hyperlipidemia Chronic fatigue LDL CHOLESTEROL, DIRECT Routine 05/04/2019 3:02 PM EDT 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, with long-term current use of insulin Vitamin D deficiency Mixed hyperlipidemia Chronic fatigue HEMOGLOBIN A1C Routine 05/04/2019 3:02 PM EDT 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, with long-term current use of insulin Vitamin D deficiency Mixed hyperlipidemia Chronic fatigue BASIC METABOLIC PANEL Routine 05/04/2019 3:02 PM EDT 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, with long-term current use of insulin Vitamin D deficiency Mixed hyperlipidemia Chronic fatigue documented in this encounter Results * TSH (05/04/2019 3:02 PM EDT) Thyroid Stimulating Hormone 1.09 0.27 - 4.20 mcIU/mL [facility] Blood specimen (specimen) 05/04/2019 3:02 PM EDT 05/04/2019 3:15 PM EDT Narrative Resulting Agency Comment Spec In Lab Izaiah Welsh MD CHEMISTRY ORDERAB LES Performing Organization Address [facility] Co de Phone Number [facility] [place] [address] * LDL Cholesterol, Direct (05/04/2019 3:02 PM EDT) LDL Cholesterol, Direct 64 mg/dL [facility] Comment: Lowest Risk: <100 mg/dL Lower Risk: 100-129 mg/dL Borderline High Risk: 130-159 mg/dL High Risk: 160-189 mg/dL Very High Risk: >kg=254 mg/dL Blood specimen (specimen) 05/04/2019 3:02 PM EDT 05/04/2019 3:15 PM EDT Narrative Resulting Agency Comment Spec In Lab Izaiah Welsh MD CHEMISTRY ORDERAB LES [facility] [place] [address] * (ABNORMAL) Vitamin D, 25-Hydroxy (05/04/2019 3:02 PM EDT) Vitamin D Total 25 OH 29(L) 30 - 100 ng/mL [facility] Comment: Deficient <10 ng/mL Insufficient 10 to 29 ng/mL Sufficient 30 to 100 ng/mL Potential Intoxication >100 ng/mL According to the [place] National Osteoporosis Foundation, Vitamin D concentrations >30 ng/mL are sufficient to protect bone health. ??The National Kidney Foundation has similarly stated that patients with Vitamin D concentrations <30ng/mL should be considered to be insufficient or deficient. http://Sqwiggle/nkf-guidelines http://Sqwiggle/nejm-VitD The [employer] i[employer] Vitamin D Immunoassay detects both 25-OH Vitamin D2 and 25-OH Vitamin D3, but only a total Vitamin D concentration is reported. Blood specimen (specimen) 05/04/2019 3:02 PM EDT 05/05/2019 7:15 AM EDT Narrative Resulting Agency Comment Spec In Lab Izaiah Welsh MD CHEMISTRY ORDERAB LES Performing Organization Address [facility] Co de Phone Number [facility] [place] [address] * (ABNORMAL) Phosphorus (05/04/2019 3:02 PM EDT) Phosphorus 4.8(H) 2.5 - 4.5 mg/dL [facility] Blood specimen (specimen) 05/04/2019 3:02 PM EDT 05/04/2019 3:15 PM EDT Narrative Resulting Agency Comment Spec In Lab Izaiah Welsh MD CHEMISTRY ORDERAB LES Performing Organization Address City/[facility]/ZIP Co de Phone Number [facility] [place] [address] * (ABNORMAL) Basic Metabolic Panel (non-fasting) (05/04/2019 3:02 PM EDT) Glucose 461(H) 65 - 199 mg/dL [facility] Comment:Diabetes: >=200 mg/d L plus symptoms Blood Urea Nitrogen 31(H) 10 - 20 mg/dL [facility] Creatinine 4.32(H) 0.80 - 1.50 mg/dL [facility] Sodium 137 135 - 145 mmol/L [facility] Potassium 4.8 3.5 - 5.0 mmol/L [facility] Comment: Please note: ??Patients with WBC >100,000 may have falsely elevated Potassium levels. ??For accurate Potassium quantification in these patients send serum separator tube (gold top) for subsequent determinations. ??Contact the Clinical Chemistry Laboratory if there are any questions. Chloride 95(L) 98 - 107 mmol/L [facility] Carbon Dioxide 29 22 - 31 mmol/L [facility] Anion Gap 13 5 - 15 mmol/L [facility] Calcium 9.1 8.5 - 10.5 mg/dL [facility] Est Glomerular Filtration Rate 15(L) >=60 mL/min/1. 73 m?? [facility] Comment: The eGFR was calculated using the CKD-EPI equation. As with all creatinine based estimates of kidney function, eGFR values calculated with the CKD-EPI equation are not accurate in patients with acute kidney failure, extremes of body mass or the acutely ill. http://Sqwiggle/[facility] DUNCANnkf eGFR 17(L) >=60 mL/min/1. 73 m?? [facility] Comment: The eGFR was calculated using the CKD-EPI equation. As with all creatinine based estimates of kidney function, eGFR values calculated with the CKD-EPI equation are not accurate in patients with acute kidney failure, extremes of body mass or the acutely ill. http://Sqwiggle/DHnkf Blood specimen (specimen) 05/04/2019 3:02 PM EDT 05/04/2019 3:15 PM EDT Narrative Resulting Agency Comment Spec In Lab Izaiah Welsh MD CHEMISTRY ORDERAB LES Performing Organization Address City/[facility]/ZIP Co de Phone Number [facility] [place] [address] * C-peptide (05/04/2019 3:02 PM EDT) Pathologist [facility] C-Peptide 2.5 0.8 - 5.2 ng/mL [facility] Blood specimen (specimen) 05/04/2019 3:02 PM EDT 05/04/2019 3:15 PM EDT Narrative Resulting Agency Comment Spec In Lab Izaiah Welsh MD CHEMISTRY ORDERAB LES Performing Organization Address [facility] Co de Phone Number [facility] [place] [address] * (ABNORMAL) Hemoglobin A1c (05/04/2019 3:02 PM EDT) [facility] Hemoglobin A1c 12.4(H) 4.3 - 5.6 % [facility] Comment: Reference Range: 4.3 - 5.6% [...] 36: Suppl. 1, S67-74 Estimated Average Glucose 309 mg/dL [facility] Comment: eAG equivalents for HbA1c percentages: [...] into estimated average glucose values. ??Diabetes Care 2008:31(8):2931-3799. 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
--- OUTSIDE RECORDS SUMMARY | 2024-12-05 12:41 | XMS_ITS | Encounter Summary ---
Author [facility] [place] [address] Care Team Providers Care Farm Operator Name Role Phone Lauri Barbosa DNP Primary Care Provider [phone] Encounter Details Date Type Department Care Team (Late st Contact Info) Description 04/19/2019 Orders [place] [address] Sara Lyles Social History Tobacco Use Types Packs/Day Years [...] on filedocumented in this encounter Care Teams Farm Operator Relationship Specialty Start Date End Date Lauri Barbosa DNP [address] [place] [address] PCP - General Family Medicine 02/06/19 08/09/22 documented as of this encounter
--- OUTSIDE RECORDS SUMMARY | 2024-12-05 12:41 | XMS_ITS | Encounter Summary ---
Author Organization [facility] Address [facility] [place] [address] Care Team Providers Care Corrosion Control Fitter Name Role Phone Lauri Barbosa ADIEL Primary Care Provider [phone] Encounter Details Date Type Department Care Team (Late st Contact Info) Description 02/28/2019 Telephone Solid Organ Transplant at [facility] [place] [id number] Debra Akins, RN Social History Tobacco Use Types Packs/Day [...] Telephone Encounter - Debra Stafford RN - 02/28/2019 9:59 AM EDT Call to Xander regarding his He begun dialysis 02/14. He reports it's going alright. Has had some issues with the staff being able to access his site. He hasn't been able to get his JOVAN (digital rectal exam) yet. He will follow up for an appointment.He will also inquire about his shingles, [id number], and pneumovax 23 as he understands we do not have record of this. He reports he has maintained his cessation of smoking despite the stress of starting dialysis. He denies needing resources to help continue this. He is scheduled to see Endocrinology 03/16. This is a dialysis day (, , ). He requested I reachout to their team to request a reschedule. I have messaged them to contact him. He had no questions. documented in this encounter Plan of Treatment Not on file documented as of this encounter Visit Diagnoses Not on filedocumented in this encounter Care Teams Corrosion Control Fitter Relationship Specialty Start Date End Date Lauri Barbosa DNP [address] [place] [address] PCP - General Family Medicine 02/06/19 08/09/22 documented as of this encounter
--- OUTSIDE RECORDS SUMMARY | 2024-12-05 12:41 | XMS_ITS | Encounter Summary ---
Author Organization [facility] Address [facility] [place] [address] Care Team Providers Care Tube Molder Fiberglass Name Role Phone Raul KarineLauri jansen ADIEL Primary Care Provider Encounter Details Date Type Department Care Team (Late st Contact Info) Description 04/25/2019 Telephone Neurology at [facility] [place] [place] [address] Lani Rodriguez RN Social History Tobacco Use Types Packs/Day [...] encounter Miscellaneous Notes * Telephone Encounter - Lani Rodriguez RN - 04/25/2019 9:43 AM EDT Pt returned call, he would like to hold off and have referral sent in after he is able to be on Medicaid/Medicare. Pt says he just got bills totaling $10,000 and does not want to add any more at thistime. He is out brushogging his 20 acres and trying to stay active. Pt will call Neurology team once his insurance is settled, will coordinate referral with PCP office * Telephone Encounter - Lani Rodriguez RN - 04/25/2019 8:58 AM EDT Call placed to pt, message left on voicemail requesting call back * Telephone Encounter - Lani Rodriguez RN - 04/25/2019 8:58 AM EDT ----- Message from Jossy Sen APRN sent at 04/19/2019 2:57 PM EDT ----- After visit thought after watching him walk to exit desk - he should have evaluation by outpt physical therapy for his balance. I placed external order. Would you mind calling him or his and offering this ([place] and would probably go to a place in [facility]). Thank you. documented in this encounter Plan of Treatment Not on file documented as of this encounter Visit Diagnoses Not on filedocumented in this encounter Care Teams Tube Molder Fiberglass Relationship Specialty Start Date End Date Lauri Barbosa DNP [address] [place] [address] PCP - General Family Medicine 02/06/19 08/09/22 documented as of this encounter
--- OUTSIDE RECORDS SUMMARY | 2024-12-05 12:41 | XMS_ITS | Encounter Summary ---
Author Organization [facility] [place] [address] Care Team Providers Care Marketing Assistant Retail Division Name Role Phone Lauri Barbosa DNP Primary Care Provider [phone] Reason for Referral * Consultation (Urgent) - Specialty Diagnoses / Procedures Referred By Nader gardiner Referred To Contact Endocrinology Diagnoses Type 2 diabetes mellitus with hyperglycemia, with long-term current use of insulin Gisele Mosqueda MD [facility] [address] NEPHROLOGY [place], [place] [id number] [place] [address] Endocrinology [address] [place] [address] Referral ID Status Reason Start Date Expiration Date V isits Requested Visits Authorized [id number] Consult, Test & Treat 02/06/2019 02/06/2020 1 1 Reason for Visit * Reason Comments Chronic Kidney Disease Encounter Details Date Type Department Care Team (Latest Contact Info) Description 02/06/2019 3:30 PM EDT Office Visit [place]ph[place] [phone] Gisele Mosqueda MD B, Nurse Clinician None Sukumar Khan MD CKD (chronic kidney disease) stage 5, GFR less than 15 ml/min; Anemia of chronic renal failure, stage 4 (severe); Type 2 diabetes mellitus with hyperglycemia, with long-term current use of insulin; Essential hypertension; Proteinuria, unspecified type; Secondary hyperparathyroidism Social History Tobacco Use Types Packs/Day Years [...] Sign Reading Time Taken Comments Blood Pressure 167/83 02/06/2019 3:37 PM EDT Pulse 68 02/06/2019 3:37 PM EDT Temperature - - Respiratory Rate - - Oxygen Saturation - - Inhaled Oxygen Concentration - - Weight 98 kg (216 lb) 02/06/2019 3:37 PM EDT Height - - Body Mass Index 30.99 10/24/2018 10:22 AM EST documented in this encounter Patient Instructions * Patient Instructions* Marichuy So RN - 02/06/2019 3:30 PM EDT We will start looking for a dialysis chair in [facility] for you Your red blood cells are low. We have added in iron studies to see if your iron stores are adequate. We will need to replace your iron with an infusion if it is low or replace the hormone usually made by the kidneys to help boost the red blood cells. These can be arranged locally and will be taken over by the dialysis center once you start dialysis Your Phosphorus is high. We would like to add Renvela 800 mg three times daily with your meals Call if you feel differently (consistent symptoms of nausea, vomiting, little appeal for food, itching, change in sleep patterns, worsening energy levels, shortness of breath). These are some of the signs of worsening kidney function. We will see you sooner if you are not feeling well. Please call. Marichuy DOYLE-hydraulic press operator Kidney Disease Nurse Specialist at [facility] Nephrology. documented in this encounter Progress Notes * Sukumar Khan MD - 02/06/2019 3:30 PM EDT [facility] [address] [place] [address] Reason for Clinic Visit: Systems Review and CKD management. Seen in clinic with: Marichuy So RN, CKD RN Specialist CKD related to: Diabetes, HTN ID: This is a 53yo male with a history of CKD G5 secondary to diabetic nephropathy who returns for a routine follow-up. Interim Hx: Patient has been doing poorly since last visit. Patient reports fatigue, poor sleep, poor concentration, sporadic twitching of the hands (dropping objects), nausea, and anorexia. states that he has fallen asleep behind the wheel. His glycemic control continues to be poor and his insulin regimen is finally being adjusted by his new PCP. Patient has persistent moderate lower extremity edema PO Lasix 80mg BID. Patient denies any urinary symptoms. On a positive note, patient has quit smoking about a month ago. Patient is being followed and evaluated by our transplant team. History obtained by RN Specialist: Xander is being seen in follow up to his September clinic visit. We received a call from Xander's PCP office with concerns and asking to have Xander seen sooner than his scheduled February appointment. He has had no energy, his blood sugars have been running high even with increased Lantus. He is reporting increased jerking movements in hands with dropping things he is holding. Prior to being added to the wait list for transplant, he needs to have a negative nicotine test and he quit smoking at the beginning of December. At his last visit, his furosemide was increased to 80 mg twice daily and he was recommended to cut down on his salt intake. Had a shot in his eye Wednesday for his diabetic retinopathy. He had an AVF created on 09/05/18 which should be ready to use. His back is finally starting to improve. He has increased swelling in his legs, hands and face. He also has sensation changes in his right arm (not on fistula side). He has decreased sensation in his legs due to nephropathy. He has increased tingling in both his hands that feels neuropathic. 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 He is currently going through the process to get SSDI and is waiting for determination. Review of Systems: Sign/Symptom Comments Energy level/fatigue: Has none - Can't do much as he gets tired very quickly and has to stop and rest often. Change in sleep patterns: Not sleeping that great, napping more during the day and dozing during the day. He has never had a sleep study Nocturia: 3-4 times Appetite changes: Appetite is good - lower potassium and sodium diet Food aversions: Has spells where nothing tastes good - no specific foods Nausea: Every morning after taking medication Vomiting: In the morning if takes meds without food Bowels: none Edema: Legs, hands and facial swelling - 2+ on exam Shortness of breath: gets SOB w/ hills but generally gets tired before SOB stops him Orthopnea/PND: No PND, 2 pillows at night Muscle Cramping: First thing in am in calves and both hands (worse if fistula side) Cold intolerance: Yes - mild Itching: no Bruising/bleeding: none Mental Status Changes: Increased difficulty with concentration and STM not as good Recent Home Blood Pressure Control: Not checking regularly but has a machine Recent Home Diabetic Management: Blood sugars all over the place, up over 300 at times has had one 600 recently Recent Lipid Management: None Advance Directives: 07/04 -no - forms given How has your health been in the last 4 weeks? Poor to Fair, Good, Very Good, Excellent. Additional CCM Comments: Social Determinant Date/Comments Food Security/ Nutritional Education Monitoring potassium Stable Housing/ Safety Concerns Currently out of work due to back issues Community Supports/ Transportation issues/ Appointment coordination is main support person Functional Status/ Assistive devices Independent Wears hearing aide Learning Style/Considerations Engagement/Readiness to learn or change Financial/Insurance concerns Employment status Lost his job after disability ran out Trying to get on SSDI Currently on 's insurance Hepatitis B Status: Serum Testing Date of Testing Results Hep B sAb/Hep B sAg 06/02/18 Neg/Neg Vaccination Status: Yes No Hepatitis B Vaccination Given Date First Dose 08/09/18 Second Dose Third Dose Education: AAKP Phase One Booklet, Options DVD, Kidney Beginnings, Decision Aid, other: 07/04/18 - Patient given Options DVD and AAKP Phase 1 on 04/07/18 Anticipated Renal Replacement Therapy Plan:07/04 - HD in center Transplant evaluation: 07/04 - Undergoing evaluation & testing. Understands need to be smoke free for consideration Fistula Date/Type of Initial Access/Surgeon: Referral placed 07/04/18 for first time HD access 10/24/18 - Left Brachiocephalic AVF created on 09/05/18 Bruit: Yes Thrill: Yes Maturation: No Temperature changes: Yes- cold very easily Sensation changes: No Pain: Cramping every 3-4 days Incision Appearance: Other Comments: * Vaccinations: - Influenza - Pneumovax - Zostavax - Meningococcus PMH: Patient Active Problem List Diagnosis Code ??? [...] Proteinuria R80.9 ??? Essential hypertension I10 ??? CKD (chronic kidney disease) stage 4, GFR 15-29 ml/min N18.4 ??? Pre-transplant evaluation for CKD (chronic kidney disease) Z01.818 ??? Hyperglycemia R73.9 ??? Secondary hyperparathyroidism N25.81 Allergies Allergen Reactions ??? Clindamycin Swelling. ??? Gabapentin swelling ??? Penicillins Unknown reaction as a child. Outpatient Medications Marked as Taking for the 02/06/19 encounter (Office Visit) with Gisele Mosqueda MD Medication Sig Dispense Refill ??? labetalol (NORMODYNE) 100 mg Tablet Take 100 mg by mouth 2 times daily. 0 ??? furosemide (LASIX) 80 mg Tablet Take 1 tablet by mouth 2 times daily. 180 tablet 3 ??? blood sugar diagnostic strips (ONETOUCH ULTRA TEST) [...] by mouth daily. 90 tablet 3 ??? ferrous sulfate 325 mg (65 mg iron) Tablet, Delayed Release (E.C.) Take 325 mg by mouth daily. ??? pregabalin (LYRICA) 100 mg Capsule Take 100 mg by mouth 2 times daily. ??? multivitamin (THERAGRAN) Tablet Take 1 tablet by mouth daily. ??? Insulin Burke, Disposable, 31 X 5/16 Needle Inject 1 each subcutaneously 2 times daily (before meals). 100 each 11 Physical Exam: BP 167/83 Pulse 68 Wt 98 kg (216 lb) BMI 30.99 kg/m?? Appearance - Awake. NAD. Obese. Skin - No exanthem or wound. HEENT - No sclera icterus. Moist oral mucosa. Chest - Lungs CTA. Heart - S1 and S2. RRR. Grade 2 systolic murmur LUSB. No JVD. Abd - Soft. Non-tender. Distended. Normal BS. - No flank tenderness. Ext - LUE AVF w/ good thrill/ bruit. Warm extremities. No cyanosis. 2+ BLE edema. Neuro - Poor concentration. Normal speech. Mild bilateral asterixis. Labs Results for GERSON BONILLA ( ) as of 02/07/2019 07:49 Ref. Range 10/24/2018 13:06 02/06/2019 15:22 WBC Latest Ref Range: 4.0 - 9.5 x10(3)/mcL 7.1 7.4 RBC Latest Ref Range: 4.58 - 5.54 x10(6)/mcL 3.51 (L) 2.95 (L) Hemoglobin Latest Ref Range: 13.7 - 16.5 gm/dL 10.5 (L) 8.9 (L) Hematocrit Latest Ref Range: 40.5 - 48.5 % 31.8 (L) 26.6 (L) MCV Latest Ref Range: 82.9 - 93.1 fL 90.6 90.2 MCH Latest Ref Range: 27.5 - 32.1 pg 29.9 30.2 MCHC Latest Ref Range: 32.0 - 35.7 gm/dL 33.0 33.5 RDWSD Latest Ref Range: 36.0 - 45.0 fL 43.6 41.3 RDWCV Latest Ref Range: 11.4 - 13.8 % 13.2 12.6 Platelets Latest Ref Range: 145 - 357 x10(3)/mcL 295 273 MPV Latest Ref Range: 7.6 - 12.9 fL 11.2 11.6 Sodium Latest Ref Range: 135 - 145 mmol/L 142 136 Potassium Latest Ref Range: 3.5 - 5.0 mmol/L 4.7 4.9 Chloride Latest Ref Range: 98 - 107 mmol/L 106 94 (L) CO2 Latest Ref Range: 22 - 31 mmol/L 23 28 Anion Gap Latest Ref Range: 5 - 15 mmol/L 13 14 BUN Latest Ref Range: 10 - 20 mg/dL 54 (H) 79 (H) Creatinine Latest Ref Range: 0.80 - 1.50 mg/dL 4.15 (H) 5.16 (H) eGFR Latest Ref Range: >=60 mL/min/1.73 m?? 16 (L) 12 (L) eGFR Latest Ref Range: >=60 mL/min/1.73 m?? 18 (L) 14 (L) Glucose Lvl Latest Ref Range: 65 - 199 mg/dL 86 445 (H) Calcium Latest Ref Range: 8.5 - 10.5 mg/dL 8.6 10.0 Phosphorus Latest Ref Range: 2.5 - 4.5 mg/dL 4.4 7.3 (H) Uric Acid Latest Ref Range: 3.5 - 8.5 mg/dL 6.5 Albumin Latest Ref Range: 3.2 - 5.2 gm/dL 3.0 (L) 3.8 Ferritin Latest Ref Range: 30 - 400 ng/mL 137 Iron Latest Ref Range: 45 - 160 mcg/dL 66 TIBC Latest Ref Range: 250 - 450 mcg/dL 291 Iron Saturation Latest Ref Range: 20 - 50 % 23 U Protein Ran Latest Ref Range: 0 - 12 mg/dL 475 (H) 218 (H) PTH Latest Ref Range: 15 - 65 pg/mL 154 (H) 45 Prot/Cre Ratio Latest Units: ratio 5.5 6.6 U Creatinine Latest Units: mg/dL 86 33 HepB Surface Ag Latest Ref Range: Negative Negative Problem/Goal/Assessment/Plan: Problem: Chronic Kidney Disease Goal: Reduce rate of progression Education for CKD Stage specific issues Results: Estimated GFR (MDRD): 12 ml/min/1.73m2 CKD Stage 5 Potassium Level - 4.9 CO2 level - 28 Uric Acid level - 6.5 Changes discussed with RN Specialist: Your symptoms have worsened. We would recommend that you start dialysis soon. We will start looking for a dialysis chair in [facility] for you. A/P: Diabetic nephropathy with nephrotic-range proteinuria. Now showing signs and symptoms of uremia. Unable to start ACEi/ARB previously due to hyperkalemic tendencies. - Recommend initiation of HD as soon as chair is available. Patient has a mature left brachiocephalic AVF (created 09/05/18). Patient requests [facility]. May visit the unit before starting. - Continue to optimize BP and glycemic control. Referral to endocrinology for diabetes management. - Continue PO Lasix 80mg BID. Low-Na+ diet discussed. Monitor weight daily. - Renally dose medications. - Follow up with transplant team. Problem: Management of Anemia related to Chronic Kidney Disease (CKD) Goal: Hgb 9.5-10.9 g/dl Ferritin>100ng/ml TSAT>20% Today's Results Hgb - 8.9 Ferritin - 66 TSAT - 23 Receiving erythropoetic stimulating agent? No Last IV Iron replacement therapy (Venofer), Date : None Changes discussed with RN Specialist: Patient on oral iron. Anemia management to be done by dialysis center. A/P: Hb not at goal. Iron replete but on low side. IV iron and GEORGE to be given on HD. Continue PO Iron. Screening colonoscopy due. Problem: Hypertension Goal: Urine alb:cr ratio <30mg/g - 140/90, Urine alb:cr ratio > 30mg/g - 130/80 Sodium intake < 2 Gm per day. Results: BP today - 167/83 Changes discussed with RN Specialist: None A/P: Hypertensive in clinic today. Patient does not monitor BP at home. Unable to start ACEi/ARB due to hyperkalemic tendencies. - Continue Amlodipine 10mg daily, Labetalol 100mg BID, and Hydralazine 25mg TID. Patient is also onLasix 80mg BID for edema. - Encouraged home BP monitoring. - Importance of weight loss and DASH diet discussed. - Consider evaluation for DANILO. states patient has episodes of apnea. Problem: Proteinuria Goal: Pro:Cr ratio <0.2mg/mg Alb:Cr ratio < 30mg/g Today's results: Pro:Cr ratio 6.6 Alb:Cr ratio Changes discussed with RN Specialist: Not currently on ACEI/ARB due to hx hyperkalemia. A/P: Nephrotic-range proteinuria. Has not been on ACEi/ARB due to hyperkalemic tendencies. Continueto optimize glycemic control. Problem: Bone Disease Goal: Stage 3 PTH: 35-70 pg/ml Phos 2.7-4.6 Ca 8.5-10.5mg/dl Stage 4 PTH: 70-110 pg/ml Phos 2.7-4.6 Ca 8.5-10.5mg/dl Stage 5 PTH: 150-300 pg/ml Phos 3.5-5.5 Ca 8.5-10.5mg/dl Results: PTH today - 45 (pt not taking calcitriol) Phos today - 7.3 (pt not taking binders) Calcium today - 10 Changes discussed with RN Specialist: Your Phosphorus is high. We would like to start you on Renvela 800 mg 3 times daily with meals. A/P: Ca++ WNL. Hyperphosphatemic. PTH at goal. Start Renvela 800mg TID with meals. Discussed dietary changes. Problem: Nutrition Goal: Albumin > 4.0gm/dl BMI 20-25 kg/m2 Results: Albumin today - 3.8 Changes discussed with RN Specialist: None A/P: Secondary to nephrotic syndrome. Continue healthy heart diet. No need to restrict protein intake. Problem: Diabetes Goal: HA1C ~ 7.0% Results: HA1C today - none. Random Glucose - 445 Changes discussed with RN Specialist: Your blood sugars have not been well controlled. We are placing a referral to Endocrine for management recommendations. A/P: Poorly controlled. Patient recently had a visit with his new PCP and finally starting to adjust insulin regimen. Patient will likely benefit from Endocrinology involvement and diabetes education. Will place formal referral. Patient agrees with plan. Referral: Endocrinology Summary: is a 53yo male with progression of CKD secondary to diabetic nephropathy, now showing signs and symptoms of uremia. Recommend initiation of hemodialysis as soon as chair is open at [facility]. Patient and agrees with plan. Patient should not be driving until he is on routine HD and no longer uremic. Will coordinate dialysis initiation with [facility]. Instructed the patient to go to the nearest ER ([place] [facility] if worsening uremia (for example AMS) or volume overload (respiartory compromise). Return to CKD clinic: To be followed at the dialysis unit. * Gisele Mosqueda MD - 02/06/2019 3:30 PM EDT Nephrology Attending Gerson Bonilla was seen and examined and discussed with the Renal Fellow Dr Khan The data and chart were reviewed. My findings and recommendations are accurately detailed in the note above. The findings, recommendations, and plan for ongoing care were discussed with the patient and the Renal Fellow documented in this encounter Plan of Treatment Scheduled Referrals Name Type Priority Associated Diagnoses Order Schedule Referral to Endocrinology Outpatient Referral Routine Type 2 diabetes mellitus with hyperglycemia, with long-term current use of insulin Ordered: 02/06/2019 documented as of this encounter Visit Diagnoses Diagnosis CKD (chronic kidney disease) stage 5, GFR less than 15 ml/min Chronic kidney disease, Stage V Anemia of chronic renal failure, stage 4 (severe) Type 2 diabetes mellitus with hyperglycemia, with long-term current use of insulin Essential hypertension Unspecified essential hypertension Proteinuria, unspecified type Secondary hyperparathyroidism Secondary hyperparathyroidism (of renal origin) documented in this encounter Care Teams Marketing Assistant Retail Division Relationship Specialty Start Date End Date Lauri Barbosa DNP [address] [place] [address] PCP - General Family Medicine 02/06/19 08/09/22 documented as of this encounter
--- OUTSIDE RECORDS SUMMARY | 2024-12-05 12:41 | XMS_ITS | Encounter Summary ---
Author Organization [facility] Address [facility] [place] [address] Care Team Providers Care Customer Engagement Representative Name Role Phone Lauri Barbosa DNP Primary Care Provider [phone] Encounter Details Date Type Department Care Team (Late st Contact Info) Description 05/17/2019 Telephone [place] [address] Social History Tobacco Use [...] Encounter - Jeaneth Felipe RD - 05/17/2019 2:16 PM EDT Diabetes Education and Nutrition Services Called Gerson per Dr. Welsh and myself 14-Day Freestyle Maris sensor is completely safe to wearand doesn't interfere with dialysis. Informed him reasoning is that CGM hasn't been well studied inpatients on HD so they have to put a disclaimer. He stated he will wear sensor starting tonight. JIM Pope documented in this encounter Plan of Treatment Not on file documented as of this encounter Visit Diagnoses Not on filedocumented in this encounter Care Teams Customer Engagement Representative Relationship Specialty Start Date End Date Lauri Barbosa DNP [address] [place] [address] PCP - General Family Medicine 02/06/19 08/09/22 documented as of this encounter
--- OUTSIDE RECORDS SUMMARY | 2024-12-05 12:42 | XMS_ITS | Encounter Summary ---
Author Organization [facility] Address [facility] [place] [address] Care Team Providers Care Triage Rn Name Role Phone Adeola Villegas APRN Primary Care Provider [phone] Reason for Visit * Reason Onset Date Comments Other 09/06/2018 Encounter Details Date Type Department Care Team (Late st Contact Info) Description 09/06/2018 Telephone [place] [id number] Greta Larsen Other Social History Tobacco Use Types Packs/Day Years Used Date Smoking Tobacco: Former Cigarettes Q uit: 07/14/2018 Smokeless Tobacco: Never Alcohol Use Standard Drinks/Week Comments No 0 (1 standard drink = 0.6 oz pur e alcohol) Sex and Gender Information Value Date Recorded Sex Assigned at Not on file Gender Identity Not on file Sexual Orientation Not on file documented as of this encounter Miscellaneous Notes * Telephone Encounter - Greta Larsen - 09/14/2018 1:08 PM EST LVM 2X, Sent letter * Telephone Encounter - Greta Larsen - 09/06/2018 9:57 AM EST LVM for patient to call to schedule 4W FUV appointment with D[employer]IN MECHANIC/PA for s/p AVF creation. documented in this encounter Plan of Treatment Not on file documented as of this encounter Visit Diagnoses Not on filedocumented in this encounter Care Teams Triage Rn Relationship Specialty Start Date End Date Adeola Villegas APRN PCP - General Family Medicine 01/13/17 02/05/19 documented as of this encounter
--- OUTSIDE RECORDS SUMMARY | 2024-12-05 12:42 | XMS_ITS | Encounter Summary ---
[place] [address] Care Team Providers Care Homemaking Rehabilitation Consultant Name Role Phone Adeola Villegas APRN Primary Care Provider [phone] Encounter Details Date Type Department Care Team (Late st Contact Info) Description 11/15/2018 Orders Only [place] [address] Debra Akins, RN Social History Tobacco Use Types Packs/Day Years Used Date Smoking Tobacco: Every Day Cigarettes Last attempted to quit: 07/14/2018 Smokeless Tobacco: Never Alcohol Use Standard [...] on filedocumented in this encounter Care Teams Homemaking Rehabilitation Consultant Relationship Specialty Start Date End Date Adeola Villegas APRN PCP - General Family Medicine 01/13/17 02/05/19 documented as of this encounter
--- OUTSIDE RECORDS SUMMARY | 2024-12-05 12:42 | XMS_ITS | Encounter Summary ---
Author Organization [facility] Address [facility] [place] [address] Care Team Providers Care Moss Picker Name Role Phone Adeola Villegas APRN Primary Care Provider [phone] Encounter Details Date Type Department Care Team (Late st Contact Info) Description 12/28/2018 Telephone [facility] Organ Transplant at [facility] [place] [address] Debra Akins RN Social History Tobacco Use [...] Miscellaneous Notes * Telephone Encounter - Debra Stafford, RN - 12/28/2018 3:58 PM EST Call to Xander to see how things are going with Xander not smoking cigarettes. He reports he had a momentof weakness and did smoke a cigarette. He is not smoking. He reports he knows he needs to quit and he knows it's critical. He doesn't know what is wrong him, and reports being pretty upset about it. I will check in with him again soon. He will call with any changes or if he decides he'd like resources. documented in this encounter Plan of Treatment Not on file documented as of this encounter Visit Diagnoses Not on filedocumented in this encounter Care Teams Moss Picker Relationship Specialty Start Date End Date Adeola Villegas APRN PCP - General Family Medicine 01/13/17 02/05/19 documented as of this encounter
--- OUTSIDE RECORDS SUMMARY | 2024-12-05 12:42 | XMS_ITS | Encounter Summary ---
Author Organization [facility] Address [facility] [place] [address] Care Team Providers Care Bend Sorter Name Role Phone Bakari Adeola Sanchez APRN Primary Care Provider [phone] Encounter Details Date Type Department Care Team (Late st Contact Info) Description 12/21/2018 11:00 AM EST Office Visit [place] [address] Debra Akins, RN Pre-transplant evaluation for kidney transplant Social History Tobacco Use Types Packs/Day Years [...] as of this encounter Progress Notes * Debra Stafford, RN - 12/21/2018 11:00 AM EST I met with Gerson Bruner for a final education prior to being added to the kidney transplant wait list. Outstanding testing: Second ABO, HLA typing, nicotine testing (will hold off, had a cigarette yesterday and has agreed that was his last day), ABIs - today Immunizations - shingles shot years ago (had shingles before), May have had the PNA vaccination - will request from PCP JOVAN - will get this done, new PCP unsure of name PCP leaving Dr. Lay (?) Dental Clearance - had given this to dentist, but I have yet to receive it via fax - he was given anew copy today and will get this done We discussed wait list expectations including but not limited to: Clinic visits every 6 months Pager Monthly blood sample Temporary inactive status Contacting the department with changes in health, contact information or insurance Staying up to date on healthcare maintenance items (yearly physical, flu shot, JOVAN, PSA) Yearly transplant testing (EKG,CXR, labs etc) Gerson Bruner will be discussed at a team committee review meeting (once all testing has been completed and has proven he has quit smoking). At that time, if approved by the team he will be added tothe kidney transplant wait list. I will contact him to confirm the team decision. Gerson Bruner was given opportunity to ask questions regarding being on the wait list, the transplant surgery and initial follow up care. All questions were answered and I provided him with my contact information to follow up as needed. I spent 60 minutes providing direct education to the patient. documented in this encounter Plan of Treatment Not on file documented as of this encounter Visit Diagnoses Diagnosis Pre-transplant evaluation for kidney transplant Other specified pre-operative examination documented in this encounter Care Teams Bend Sorter Relationship Specialty Start Date End Date Adeola Villegas APRN PCP - General Family Medicine 01/13/17 02/05/19 documented as of this encounter
--- OUTSIDE RECORDS SUMMARY | 2024-12-05 12:42 | XMS_ITS | Encounter Summary ---
[place] [address] Care Team Providers Care Tape Cutter Name Role Phone Adeola Villegas APRN Primary Care Provider [phone] Encounter Details Date Type Department Care Team (Late st Contact Info) Description 11/30/2018 Abstract [place] [address] Debra Akins, RN Social History Tobacco Use [...] on filedocumented in this encounter Care Teams Tape Cutter Relationship Specialty Start Date End Date Adeola Villegas APRN PCP - General Family Medicine 01/13/17 02/05/19 documented as of this encounter
--- OUTSIDE RECORDS SUMMARY | 2024-12-05 12:42 | XMS_ITS | Encounter Summary ---
[place] [address] Care Team Providers Care Plate Mill Hand Name Role Phone Adeola Villegas APRN Primary Care Provider [phone] Encounter Details Date Type Department Care Team (Late st Contact Info) Description 11/14/2018 Orders Only Solid [place] [address] Debra Akins, RN Pre-transplant evaluation for kidney [...] examination documented in this encounter Care Teams Plate Mill Hand Relationship Specialty Start Date End Date Adeola Villegas APRN PCP - General Family Medicine 01/13/17 02/05/19 documented as of this encounter
--- OUTSIDE RECORDS SUMMARY | 2024-12-05 12:42 | XMS_ITS | Encounter Summary ---
Author Organization [facility] [place] [address] Care Team Providers Care Meat Counter Clerk Name Role Phone Adeola Villegas APRN Primary Care Provider [phone] Reason for Visit * Auth/Cert Specialty Diagnoses / Procedures Referred By Nader gardiner Referred To Contact Diagnoses CKD STAGE IV Procedures PRO ANASTOMOSIS, AV, ANY SITE AV FISTULA CREATION, DIRECT HEMODIALYSIS, ANY SITE, EG GABRIEL FISTULA UPPER EXTREMITY (WRVU 11.9) Referral ID Status Reason Start Date Expiration Date Visits Re quested Visits Authorized [id number] 1 1 Encounter Details Date Type Department Care Team (Late st Contact Info) Description 09/05/2018 5:33 PM EST - 09/05/2018 8:18 PM EST [place] [id number] Manpreet Reese MD [address] [place] [id number] AV FISTULA CREATION, DIRECT HEMODIALYSIS, ANY SITE, EG GABRIEL FISTULA UPPER EXTREMITY (WRVU 11.9) Social History Tobacco Use Types Packs/Day Years [...] Sign Reading Time Taken Comments Blood Pressure 158/74 09/05/2018 7:30 PM EST Pulse 72 09/05/2018 7:30 PM EST Temperature 36.8 ??C (98.2 ??F) 09/05/2018 7:12 PM ES T Respiratory Rate 16 09/05/2018 7:30 PM EST Oxygen Saturation 98% 09/05/2018 7:30 PM EST Inhaled Oxygen Concentration - - Weight 92.4 kg (203 lb 12.8 oz) 09/05/2018 2:36 PM EST Height - - Body Mass Index 29.24 08/11/2018 11:33 AM EDT documented in this encounter Discharge Instructions * Discharge Instructions* Kisha King RN - 09/05/2018 7:25 PM EST SAME DAY PROGRAM POST-OPERATIVE INSTRUCTIONS NERVE BLOCK PATIENTS What to expect after a nerve block Nerve blocks affect many types of nerves. The affected nerves control movement, pain, and normal sensation. This causes feelings such as ? Weakness ? Numbness ? Tingling ? Heaviness ? A feeling that your arm or leg has ???fallen asleep?? A nerve block can last for 24-48 hours, depending on the medications used. Usually the weakness wears off first, and then you will feel a numb/tingly sensation. Finally, the pain may come back. This can happen in any order. If you had a shoulder block, you may have other symptoms such as: ??? Mild shortness of breath ??? A hoarse voice ??? Blurry vision ??? Unequal pupils ??? Drooping of your face on the same side as the nerve block These are common and expected side effects of this type of nerve block. Symptoms usually go away within 12 hours. If these symptoms do not go away, please call the Anesthesiology Department at . If you have severe or prolonged shortness of breath, please go to the nearest emergency room. If you continue to feel the effects of the nerve block for longer than 48 hours, please call the Anesthesiology Department at . PAIN MEDICATION If needed, your surgeon will give you a prescription for pain medication. Start taking this medication before the nerve block wears off. Nerve blocks sometimes wear off during the night. It is a goodidea to take your pain medicine as prescribed before going to sleep so you won???t wake up with pain. The idea is to have pain medication in your body before the nerve block wears off. To help prevent nausea, eat something before taking the pain medication. Once a nerve block starts to wear off, it is usually completely gone within 60 minutes. It is important to have pain medicine in your system before the block wears off completely. Helpful tips to protect the part of your body that is numb After a nerve block, you cannot feel pain, pressure, or extremes in temperature. Because your arm or leg is numb, it is more at risk for injury. For example, you could burn your arm or leg without knowing it. Here are some hints to help protect your limb while it is numb. ??? While you are awake, try to change positions of your arm or leg often. This will help you avoidputting too much pressure on the limb for long periods of time. ??? While sleeping, pad the blocked limb with pillows to avoid placing too much pressure on the limb. ??? If you have a cast or a tight dressing, check the color of your fingers/toes every couple of hours. Call your doctor if any look discolored. ??? If you had a shoulder, arm or hand nerve block, you may go home with a sling. The sling will help to keep your arm in the ideal position. Wear the sling at all times until feelings returns. If you do not have a sling, watch the position of the blocked arm to make sure it is in a safe location. ??? Ask your family or support people to help with the above hints. Questions? Please call the Anesthesiology Department at with concerns or questions. After hours, call the hospital monotype keyboard operator at and ask for the anesthesiologist plan consultant.POST ANESTHESIA INSTRUCTIONS Go home, rest, use caution on stairs. Change positions slowly. Do not smoke if you are alone. Diet light to regular as tolerated today. If nausea occurs start with clear liquids and progress slowly. No driving, operating machinery, alcoholic beverages and no important decisions for 24 hours. Monitor IV site for signs and symptoms of infection: increasing redness, swelling, foul drainage, if occurs contact M.D. Patients who have had endotrachial tubes (this tube, used by anesthesia department, is passed down your throat after you are asleep, to ensure safe air passage during your operation). A sore throat is normal due to the tube. Cold liquids or soothing lozenges will help ease the discomfort. The generalized muscle aches are due to the medication given to you just before the tube is inserted. As the medication wears off, you may develop muscle soreness, which usually goes away in 12-24 hours. * Patient Instructions* Lani Walker MD - 09/05/2018 7:25 PM EST Instructions following AV fistula Creation Wound Care: Keep dressing on wound for the next 2 days. Do not get dressing wet. After 2 days you may remove dressing and leave open to air. At this time you may shower and get incision(s) wet. Pat dry immediately following. Do not scrub them vigorously for the next 2-3 weeks. Donot soak incision(s) for the next 2 weeks (i.e. soaking in bath or swimming) as this may promote a wound infection. There is skin glue over your incision. It will fall off on its own in 10-14 days, do not pick at it. Activity: No heavy lifting more than 20 pounds with that arm for the next 2 weeks, then you may gradually lift heavier objects as tolerated by discomfort. No vigorous activity with that arm for the next 4 weeks, or until cleared to do so at a follow-up appointment. Call Doctor for: Please call if you notice worsening redness or drainage from incision(s) lasting longer than 5 days after your surgery, any foul-smelling drainage from the incision, pain not controlled by pain medications, or for any fevers greater than 101.3 F. Call if you notice any discoloration to your fingers that seems abnormal to you, or if your hand seems cool or blue in color and is cold. Some swelling around the incision is normal as the fistula matures and the vein dilates. Pain Medication: You may take tylenol for pain control. Follow-up: You will have a follow-up appointment scheduled with the Vascular clinic in 4 weeks. Appointment will be mailed to you and/or you may be called with a date and time from the clinic. If youdo not hear from the clinic within 1 week of your appointment please call to confirm date and time of your appointment. documented in this encounter Medications at Time of Discharge Medication Sig Dispensed Refills Start Date End Date metoprolol tartrate (LOPRESSOR) 25 mg Tablet Take 50 mg by mouth 2 times daily. 11/04/2018 blood sugar diagnostic strips (Polyglot SystemsTOUCH ULTRA TEST) Strip 1 each by Other [...] times daily. 90 tablet 3 08/10/2018 02/25/2024 diaZEPam (VALIUM) 2 mg Tablet Take 2 mg by mouth 3 times daily. 0 08/07/2018 10/24/2018 methocarbamol (ROBAXIN) 750 mg Tablet Take 750 mg by mouth 4 times daily. 0 07/30/2018 10/24/2018 ranitidine (ZANTAC) 150 mg Tablet Take 150 mg by mouth 2 times daily. 0 08/07/2018 02/25/2024 nortriptyline (PAMELOR) 25 mg Capsule Take 25 mg by mouth nightly. 0 08/05/2018 02/25/2024 amLODIPine (NORVASC) 10 mg TabletIndications:CKD (chronic kidney disease) stage 4, GFR 15-29 ml/min Take 1 tablet by mouth daily. 90 tablet 3 07/04/2018 03/14/2024 ferrous sulfate 325 mg (65 mg iron) Tablet, Delayed Release (E.C.) Take 325 mg by mouth daily. 03/07/2019 aspirin 81 mg Tablet, Delayed Release (E.C.) Take 81 mg by mouth daily. 02/06/2019 pregabalin (LYRICA) 100 mg CapsuleIndications:CK D (chronic kidney disease) stage 3, GFR 30-59 ml/min,Other specified diabetes mellitus with unspecified complications,Essenti al hypertension with goal blood pressure less than 130/80,Hyperkalemia Take 100 mg by mouth 2 times daily. 03/14/2024 multivitamin (THERAGRAN) Tablet Take 1 tablet by mouth daily. 02/25/2024 furosemide (LASIX) 40 mg Tablet Take 1 tablet by mouth daily. 30 tablet 12 06/13/2015 10/24/2018 Insulin Evangeline, Disposable, 31 X 5/16 Needle Inject 1 each subcutaneously 2 times daily (before meals). 100 each 11 07/19/2014 02/25/2024 documented as of this encounter H&P Notes * Abdirashid Patterson MD - 09/05/2018 3:34 PM EST Images from the original note were not included. Vascular Surgery History and Physical HPI: Gerson Bonilla is a 52 y.o. male with CKD (no on HD) secondary to DM who is followed by vascular surgery for permanent HD access. At his last visit he was cleared for HD access surgery today. Denies history of upper extremity line placement, pacemaker placement, or port placement. Since last clinic visit patient denies, fever, chills, CP, sob, and lower extremity symptoms stable. 09/01/2018 demonstrated improvement in last duplex. Past Medical / Surgical History: Patient Active Problem List Diagnosis ??? Hyperglycemia ??? Anemia ??? Pre-transplant evaluation for CKD (chronic kidney disease) ??? Essential hypertension ??? CKD (chronic kidney disease) stage 4, GFR 15-29 ml/min ??? Proteinuria ??? Elevated blood pressure ??? Anemia of chronic renal failure, stage 4 (severe) ??? Hyperkalemia ??? Essential hypertension with goal blood pressure less than 130/80 ??? Diabetes mellitus ??? Hyperlipidemia ??? Herniation of lumbar intervertebral disc with radiculopathy Overview Note: L4-5 left ??? Type II or unspecified type diabetes mellitus with neurological manifestations, uncontrolled(250.62) ??? Leg cramps ??? Cigarette smoker ??? Unspecified hearing loss Social History Socioeconomic History ??? Marital status: Spouse name: Not on file ??? Number of children: Not on file ??? Years of education: Not on file ??? Highest education level: Not on file Social Needs ??? Financial resource strain: Not on file ??? Food insecurity - worry: Not on file ??? Food insecurity - inability: Not on file ??? Transportation needs - medical: Not on file ??? Transportation needs - non-medical: Not on file Occupational History ??? Not on file Tobacco Use ??? Smoking status: Former Smoker Packs/day: 0.50 Types: Cigarettes Last attempt to quit: 07/14/2018 Years since quittin.1 ??? Smokeless tobacco: Never Used Substance and Sexual Activity ??? Alcohol use: No Frequency: Never ??? Drug use: Yes Types: Marijuana ??? Sexual activity: Not on file Other Topics Concern ??? Not on file Social History Narrative ??? Not on file Family History Problem Relation Age of Onset ??? Diabetes Mother ??? Cancer Father ??? Diabetes Paternal Grandmother ??? Heart Disease Paternal Grandfather Medications: No current facility-administered medications for this encounter. Current Outpatient Medications Medication Sig Dispense Refill ??? metoprolol tartrate (LOPRESSOR) 25 mg Tablet Take 25 mg by mouth 2 times daily. ??? insulin detemir U-100 (LEVEMIR) Insulin Pen Inject 55 Units subcutaneously nightly. 10 mL 12 ??? hydrALAZINE (APRESOLINE) 25 mg Tablet Take 1 tablet by mouth 3 times daily. 90 tablet 3 ??? methocarbamol (ROBAXIN) 750 mg Tablet Take 750 mg by mouth 4 times daily. 0 ??? ranitidine (ZANTAC) 150 mg Tablet Take 150 mg by mouth 2 times daily. 0 ??? nortriptyline (PAMELOR) 25 mg Capsule Take 25 mg by mouth nightly. 0 ??? amLODIPine (NORVASC) 10 mg Tablet Take 1 tablet by mouth daily. 90 tablet 3 ??? ferrous sulfate 325 mg (65 mg iron) Tablet, Delayed Release (E.C.) Take 325 mg by mouth daily. ??? aspirin 81 mg Tablet, Delayed Release (E.C.) Take 81 mg by mouth daily. ??? pregabalin (LYRICA) 100 mg Capsule Take 100 mg by mouth 2 times daily. ??? multivitamin (THERAGRAN) Tablet Take 1 tablet by mouth daily. ??? furosemide (LASIX) 40 mg Tablet Take 1 tablet by mouth daily. 30 tablet 12 ??? blood sugar diagnostic strips (Lellan ULTRA TEST) Strip 1 each by Other route 2 times daily (before meals). Dx code 250.02 uses insulin 100 each 11 ??? lancets Misc Inject 1 each subcutaneously 2 times daily (before meals). Dx code 250.02 uses insulin 100 each 11 ??? diaZEPam (VALIUM) 2 mg Tablet Take 2 mg by mouth 3 times daily. 0 ??? Insulin Evangeline, Disposable, 31 X 5/16 Needle Inject 1 each subcutaneously 2 times daily (before meals). 100 each 11 Allergies: Clindamycin; Gabapentin; and Penicillins Physical Exam: Gen: NAD, alert and oriented x3 Cardiac: Regular Pulm: Normal work of breathing on room air GI: Soft, NT ND Vasc: LUE warm, palpable radial pulse, motor/sensory intact Imaging: Assessment and Plan: 52 y.o. male with ESRD not yet on HD who presents for permanent HD access. Plan for LUE AVF creation. Risks and benefits have been described to the patient and he elects to proceed [facility] Vascular Surgery Resident [id number] documented in this encounter Miscellaneous Notes * Op Note - Manpreet Reese MD - 09/05/2018 7:31 PM EST [facility] Operative Note Patient Name: Gerson Bonilla : [id number] MR#: [id number] Case Date: 09/05/2018 Surgeon: Surgeon(s) and Role: * Manpreet Reese MD - Primary * Lani Walker MD - Fellow Preoperative diagnosis: CKD STAGE IV Postoperative diagnosis: CKD STAGE IV Procedure: Left brachiocephalic AVF creation Procedure(s) (LRB): AV FISTULA CREATION, DIRECT HEMODIALYSIS, ANY SITE, EG GABRIEL FISTULA UPPER EXTREMITY (WRVU 11.9) (Left) Anesthesia: Regional Estimated Blood Loss: 15cc Specimens removed during surgery: None Drains: none Surgical Closure: Primary Closure - skin incision is completely closed without any wires, jose alejandro, drains or other devices Disposition: aroused from sedation, and taken to the recovery room in a stable condition Condition: doing well without problems (Please see the Surgical Encounter Summary for any Implant and Specimen details pertinent to this patient.) HPI/Surgical Indications: Gerson Bonilla is a 52 y.o. male with CKD (no on HD) secondary to DM who is followed by vascular surgery for permanent HD access. At his last visit he was cleared for HD access surgery today. Denies history of upper extremity line placement, pacemaker placement, or port placement. Procedure Description: After informed consent was obtained the patient was brought back to the operating room and placed supine on the OR table. Preoperative antibiotics were given. A timeout was performed. Attention was then turned to the patient's LEFT arm which was prepped and draped in the usual sterile fashion. A 4cm transverse incision 1 cm below the antecubital crease was opened with a scapel. The incision was deepened using bovie cautery. The cephalic vein was then identified within the lateral portion of the incision and all braches were identified, dissected and encircled with vessel loops. It was flushed with heparinized saline and found to be of appropriate caliber. Next, the brachial artery was palpated. The fascia overlying the artery was incised with cautery and the brachial artery was identified, circumferentially dissected and encircled with vessel loops proximal and distal. The vein was clamped centrally with a Yasargil. Distal vein braches were divided and controlled with 2-0 silk ligatures. The vein was cut to size and spatulated. The artery was controlled proximally and distally with vessel loops. An 11 blade was used to create a longitudinal arteriotomy of 8 mm which was extended using iris scissors. Next, an end to side anastamosis was constructed using 7-0 prol clair suture in running fashion. The anastamosis was flushed with heparinized saline prior to completion. The vessel loops were removed the the fistula developed a palpable thrill. There was no significant bleeding. There was a palpable radial artery. The wound was then irrigated. It was closed in layers using 3-0 vicryl, 4-0 monocryl, and dermabondglue. A dry sterile dressing was applied. All instrument and sponge counts were correct at the end of the case, and Dr. Reese was presentfor the entire case. The patient was taken to the recovery room in stable condition Infection Bundle used? Vancomycin Attestation: Case Date: 09/05/2018 Lani Walker MD 09/05/2018 I agree with the fellow's note, I was present for the entire case. Manpreet Reese MD documented in this encounter Plan of Treatment Not on file documented as of this encounter Procedures Procedure Name Priority Date/Time Associated Diagnosis Comments AV FISTULA CREATION, DIRECT HEMODIALYSIS, ANY SITE, EG GABRIEL FISTULA UPPER EXTREMITY (WRVU 11.9) 09/05/2018 4:58 PM EST CKD STAGE IV POCT GLUCOSE Routine 09/05/2018 3:23 PM EST AV FISTULA CREATE, HEMODIALYSIS, ANY SITE, EG GABRIEL FISTULA UP EXTR Routine 09/05/2018 2:17 PM EST POTASSIUM STAT 09/05/2018 1:20 PM EST CKD (chronic kidney disease) stage 4, GFR 15-29 ml/min documented in this encounter Results * AVF/Established Access Evaluation (09/29/2018 8:54 AM EST) VB Text Report Department: Vascular Surgery Lab Patient: [id number] (GERSON BONILLA) CPT: 24670 ICD10: N18.4 Referring Physician: MANPREET REESE ?? Phone: Indications: 52 year old male with CKD stage 4, s/p LEFT brachiocephalic AVF, ? volume flows ICD10 Diagnosis Code: N18.4 Findings: Left ? PSV (cms) ??EDV (cm/s) ??Flow (ml/min) ??Mia ??AP cm ?? Inflow Artery ?270 ?76 ?868 ? 0.5 ?? Anastomosis ?358 ? 214 ?948 ? 0.4 ?? Proximal AVF ? 271 ? 143 ?0.7 ?? Mid AVF ?237 ? 120 ?0.6 ?? Distal AVF ? 205 ? 126 ?0.7 ?? Interpretation: LEFT: Patent brachiocephalic arteriovenous fistula with approximate volume flow in the 800-1,000 mL/min range. There is a hematoma superficial to the AVF anastomosis at the level of the antecubital fossa. Comparison: ??No previous study in our vascular lab database for comparison. Electronically Signed by: CHARANJIT FORBES on 2018-10-02 11:03:48 AM [facility] VB Text Report End of Report [facility] 09/29/2018 8:54 AM EST Manpreet Reese MD VASCULAR ORDERABLE S [facility] * POCT Glucose (09/05/2018 3:23 PM EST) Glucose, POC 89 65 - 199 mg/dL [facility] Comment: Supplemental ranges: <140 mg/dL before meals <180 mg/dL all other times of the day Blood specimen (specimen) 09/05/2018 3:23 PM EST 09/05/2018 3:23 PM EST Manpreet Reese MD POINT OF CARE TEST ORDERABLES Performing Organization Address City/[facility]/ZIP Co de Phone Number [facility] [place] [address] * Potassium (09/05/2018 1:20 PM EST) Potassium 4.6 3.5 - 5.0 mmol/L [facility] Comment: Please note: ??Patients with WBC >100,000 may have falsely elevated Potassium levels. ??For accurate Potassium quantification in these patients send serum separator tube (gold top) for subsequent determinations. ??Contact the Clinical Chemistry Laboratory if there are any questions. Blood specimen (specimen) 09/05/2018 1:20 PM EST 09/05/2018 1:31 PM EST Narrative Resulting Agency Comment Spec In Lab Jeyson Roy MD CHEMISTRY ORDERABLES [facility] [place] [address] documented in this encounter Visit Diagnoses Not on filedocumented in this encounter Administered Medications Inactive Administered Medications - up to 3 most recent administrations Medication Order MAR Action Action Date Dose Rate Site BUpivacaine (PF) (MARCAINE) 0.5 % (5 mg/mL) injection ONCE PRN, Starting on Wed09/05/18 at 1851, Until Wed09/05/18 at 2145, Intra-Operative (Intra-Procedure), Routine Given 09/05/2018 6:51 PM EST 9 mLs 19- Surgical Site fentaNYL (PF) 50mcg/mL injection 50 mcg, Intravenous, EVERY 5 MIN PRN, Starting on Wed09/05/18 at 1503, Until Wed09/05/18 at 1932, Pain, or prior to injection of local anesthetic., Hold for respiratory rate less than 8 breaths per minute. (maximum dose 200 mcg), Day of Surgery (Day of Procedure), Routine Given 09/05/2018 4:07 PM EST 50 mcg gelatin adsorbable (GELFOAM) sponge ONCE PRN, Starting on Wed09/05/18 at 1639, Until Wed09/05/18 at 2145, Intra-Operative (Intra-Procedure) Given 09/05/2018 4:39 PM EST 4 each 19- Surgical Site midazolam (PF) (VERSED) injection 1 mg 1 mg, Intravenous, EVERY 5 MIN PRN, Starting on Wed09/05/18 at 1503, Until Wed09/05/18 at 1932, Sleep, or prior to injection of local anesthetic, Hold for delirium/agitation. (Maximum dose 5 mg)., Day of Surgery (Day of Procedure), Routine Given 09/05/2018 4:05 PM EST 2 mg thrombin (bovine) (THROMBIN-JMI) solution ONCE PRN, Starting on Wed09/05/18 at 1639, Until Wed09/05/18 at 2145, Intra-Operative (Intra-Procedure) Given 09/05/2018 4:39 PM EST 5,000 Units 19- Surgical Site documented in this encounter Active and Recently Administered Medications Times are shown in EST. Scheduled Medication Order 09/03/2018 09/04/2018 09/05/2018 vancomycin 1.25 g sodium in chloride 0.9% 250 mL (COMPLETED) 1,250 mg, Intravenous, at 200 mL/hr, ONCE, 1 dose, On Wed09/05/18 at 1500, Redose every 8 hours if CrCl is greater than 50. Redose every 16 hours if CrCl is between 20-50., Day of Surgery (Day of Procedure), Routine, Indication for (Active or Suspected): Prophylaxis 1705 (Given - Provid er: Flaco Gomez CRNA) PRN Medication Order 09/03/2018 09/04/2018 09/05/2018 BUpivacaine (PF) (MARCAINE) 0.5 % (5 mg/mL) injection (CANCELED) ONCE PRN, Starting on Wed09/05/18 at 1851, Until Wed09/05/18 at 2145, Intra-Operative (Intra-Procedure), Routine 1851 (Given - Provid er: Lani Walker MD) fentaNYL (PF) 50mcg/mL injection (CANCELED) 50 mcg, Intravenous, EVERY 5 MIN PRN, Starting on Wed09/05/18 at 1503, Until Wed09/05/18 at 1932, Pain, or prior to injection of local anesthetic., Hold for respiratory rate less than 8 breaths per minute. (maximum dose 200 mcg), Day of Surgery (Day of Procedure), Routine 1607 (Given - Provid er: Herb Barkley RN) gelatin adsorbable (GELFOAM) sponge (CANCELED) ONCE PRN, Starting on Wed09/05/18 at 1639, Until Wed09/05/18 at 2145, Intra-Operative (Intra-Procedure) 1639 (Given - Provid er: Manpreet Reese MD) midazolam (PF) (VERSED) injection 1 mg (CANCELED) 1 mg, Intravenous, EVERY 5 MIN PRN, Starting on Wed09/05/18 at 1503, Until Wed09/05/18 at 1932, Sleep, or prior to injection of local anesthetic, Hold for delirium/agitation. (Maximum dose 5 mg)., Day of Surgery (Day of Procedure), Routine 1605 (Given - Provid er: Herb Barkley RN) thrombin (bovine) (THROMBIN-JMI) solution (CANCELED) ONCE PRN, Starting on Wed09/05/18 at 1639, Until Wed09/05/18 at 2145, Intra-Operative (Intra-Procedure) 1639 (Given - Provid er: Manpreet Reese MD) documented in this encounter Care Teams Meat Counter Clerk Relationship Specialty Start Date End Date Adeola Villegas APRN PCP - General Family Medicine 01/13/17 02/05/19 documented as of this encounter
--- OUTSIDE RECORDS SUMMARY | 2024-12-05 12:42 | XMS_ITS | Encounter Summary ---
Author Organization [facility] Address [facility] [place] [address] Care Team Providers Care Laborer Chicken Farm Name Role Phone Adeola Villegas APRN Primary Care Provider [phone] Encounter Details Date Type Department Care Team (Late st Contact Info) Description 09/29/2018 Telephone [place] [address] Marichuy So, RN Social History Tobacco Use Types Packs/Day [...] encounter Miscellaneous Notes * Telephone Encounter - Marichuy So RN - 09/29/2018 1:38 PM EST S/O: Call to patient to check on blood pressures. Xander reports his blood pressures have been 140-150s systolic. His back pain is improved after surgery two weeks ago. He still has some ongoing pain but was told it would take longer for full effect as it was his second surgery. Xander saw vascular todayand his fistula is doing well. P: Patient has follow up appointment 10/24. Above sent to Dr Khan for review documented in this encounter Plan of Treatment Not on file documented as of this encounter Visit Diagnoses Not on filedocumented in this encounter Care Teams Laborer Chicken Farm Relationship Specialty Start Date End Date Adeola Villegas APRN PCP - General Family Medicine 01/13/17 02/05/19 documented as of this encounter
--- OUTSIDE RECORDS SUMMARY | 2024-12-05 12:42 | XMS_ITS | Encounter Summary ---
Author Organization [place] [address] Care Team Providers Care Data Processing Control Clerk Name Role Phone Adeola Villegas APRN Primary Care Provider Encounter Details Date Type Department Care Team (Latest Contact Info) Description 09/01/2018 12:42 PM EST - 09/01/2018 1:11 PM EST Hospital Encounter Non[place] [id number] Pre-transplant evaluation for kidney transplant Discharge Disposition: Home Social History Tobacco Use [...] times daily. 11/04/2018 blood sugar diagnostic strips (ONETOUCH ULTRA TEST) Strip 1 each by Other route 2 times daily (before meals). Dx code 250.02 uses insulin 100 each 08/10/2018 02/25/2024 insulin detemir U-100 (LEVEMIR) Insulin Pen Inject 55 Units subcutaneously nightly. 10 mL 08/10/2018 02/25/2024 lancets Misc Inject 1 each subcutaneously 2 times daily (before meals). Dx code 250.02 uses insulin 100 each 08/10/2018 02/25/2024 hydrALAZINE (APRESOLINE) 25 mg Tablet [...] daily. 30 tablet 12 06/13/2015 10/24/2018 Insulin [place], Disposable, 31 X 5/16 Needle Inject 1 each subcutaneously 2 times daily (before meals). 100 each 11 07/19/2014 02/25/2024 documented as of this encounter Plan of Treatment Not on file documented as of this encounter Procedures Procedure Name Priority Date/Time Associated Diagnosis Comments EKG 12-LEAD Routine 09/01/2018 2:08 PM EST Pre-transplant evaluation for kidney transplant documented in this encounter Results * EKG 12 Lead (09/01/2018 2:08 PM EST) Ventricular rate 75 BPM MUSE SYSTEM Atrial Rate 75 BPM MUSE SYSTEM P-R Interval 146 ms MUSE SYSTEM QRS Duration 94 ms MUSE SYSTEM Q-T Interval 388 ms MUSE SYSTEM QTC Calculated (Bezet) 433 ms MUSE SYSTEM Calculated P [place] 58 degrees MUSE SYSTEM Calculated R [place] 32 degrees MUSE SYSTEM Calculated T [place] 41 degrees MUSE SYSTEM INTERPRETATION Normal sinus rhythm Normal ECG When compared with ECG of 10-AUG-2018 03:46, No significant change was found Confirmed by MD Juan, Sourav ([id number]) on 09/01/2018 2:29:15 PM MUSE SYSTEM 09/01/2018 2:08 PM EST 09/01/2018 2:29 PM EST Kiel Paulson MD ECG ORDERABLES MUSE SYSTEM documented in this encounter Visit Diagnoses Diagnosis Pre-transplant evaluation for kidney transplant Other specified pre-operative examination documented in this encounter Care Teams Data Processing Control Clerk Relationship Specialty Start Date End Date Adeola Villegas APRN PCP - General Family Medicine 01/13/17 02/05/19 documented as of this encounter
--- OUTSIDE RECORDS SUMMARY | 2024-12-05 12:42 | XMS_ITS | Encounter Summary ---
Author Organization [facility] Address [facility] [place] [address] Care Team Providers Care Food Cooking Machine Operator Name Role Phone Bakari Adeola Sanchez APRN Primary Care Provider Encounter Details Date Type Department Care Team (Late st Contact Info) Description 11/03/2018 Telephone [place]phrology [place] [address] Marichuy So RN Social History Tobacco Use [...] Telephone Encounter - Marichuy So RN - 11/03/2018 10:43 AM EST S/O: Call to patient to check in on weights and blood pressure after Lasix increased to 80 mg BID. Patient reports his scale is broken, so he hasn't been weighing himself daily. He did see his PCP the other day and had a 4-5 pound weight loss. His PCP changed his metoprolol to Labetalol 100 mg BID.Xander reports swelling improved in hands lags and feet significantly. He continues to have ongoing edema around his eyes in the mornings but has not worsened from clinic visit 10/24/18. He hasn't been checking his blood pressure regularly. He is also questioning his transplant status as he believes he has completed his testing P: Xander to replace scale and resume daily weights and blood pressures. Above sent to Dr Khan for review. Message sent to Transplant to update patient on status documented in this encounter Plan of Treatment Not on file documented as of this encounter Visit Diagnoses Not on filedocumented in this encounter Care Teams Food Cooking Machine Operator Relationship Specialty Start Date End Date Adeola Villegas APRN PCP - General Family Medicine 01/13/17 02/05/19 documented as of this encounter
--- OUTSIDE RECORDS SUMMARY | 2024-12-05 12:42 | XMS_ITS | Encounter Summary ---
Author Organization [facility] Address [facility] [place] [address] Care Team Providers Care Shot Polisher And Inspector Name Role Phone Bakari Adeola Sanchez APRN Primary Care Provider Encounter Details Date Type Department Care Team (Late st Contact Info) Description 09/01/2018 Telephone [facility] [place] [address] Marichuy So RN Social History Tobacco Use [...] Telephone Encounter - Marichuy So RN - 09/01/2018 9:47 AM EST S/O: Patient here for Transplant team evaluation. Asked to see patient due to HTN. BP in clinic today 178/84. His blood pressures that are available go back to mid-July in this range. Patient has had ongoing elevated BP, likely pain response as he is out of his pain medicine for his back. He does have an appointment with back specialist next week. He is currently on Metoprolol 25 mg BID, Hydralazine 25 mg three times daily, amlodipine 10 mg daily for BP management. He is following his blood pressures at home and is normally in the 150 systolic range. He has a follow up appointment with Dr Khan 10/24/18. A: HTN P: Continue monitoring BP at home. Will call in a week for daily measurements. Information sent to Dr Khan for review and recommendations documented in this encounter Plan of Treatment Not on file documented as of this encounter Visit Diagnoses Not on filedocumented in this encounter Care Teams Shot Polisher And Inspector Relationship Specialty Start Date End Date Adeola Villegas APRN PCP - General Family Medicine 01/13/17 02/05/19 documented as of this encounter
--- OUTSIDE RECORDS SUMMARY | 2024-12-05 12:42 | XMS_ITS | Encounter Summary ---
Author Organization [facility] Address [facility] [address] Care Team Providers Care Poison Information Specialist Name Role Phone Adeoal Villegas APRN Primary Care Provider [phone] Encounter Details Date Type Department Care Team (Late st Contact Info) Description 09/06/2018 Telephone [place] [address] Marichuy So RN Social History Tobacco Use [...] Telephone Encounter - Marichuy So RN - 09/06/2018 1:50 PM EST S/O: Returned call from patient. Message left was question regarding refills for his prescriptions. documented in this encounter Plan of Treatment Not on file documented as of this encounter Visit Diagnoses Not on filedocumented in this encounter Care Teams Poison Information Specialist Relationship Specialty Start Date End Date Adeola Villegas APRN PCP - General Family Medicine 01/13/17 02/05/19 documented as of this encounter
--- OUTSIDE RECORDS SUMMARY | 2024-12-05 12:42 | XMS_ITS | Encounter Summary ---
Author Organization [facility] Address [facility] [place] [address] Care Team Providers Care Business Database Analyst Name Role Phone Adeola Villegas APRN Primary Care Provider Encounter Details Date Type Department Care Team (Late st Contact Info) Description 12/29/2018 External Results [place] [address] Kiel Paulson MD [facility] [place] [address] Social History Tobacco Use Types Packs/Day Years [...] Procedure Name Priority Date/Time Associated Diagnosis Comments [facility] K[facility]NEY INITIAL - RECIPIENT Routine 12/28/2018 documented in this encounter Results * Transplant: Kidney Initial (Recipient) - EXTERNAL collections (12/28/2018) Kiel Paulson MD EXTERNAL LAB [facility] [place] documented in this encounter Visit Diagnoses Not on filedocumented in this encounter Care Teams Business Database Analyst Relationship Specialty Start Date End Date Adeola Villegas APRN PCP - General Family Medicine 01/13/17 02/05/19 documented as of this encounter
--- OUTSIDE RECORDS SUMMARY | 2024-12-05 12:42 | XMS_ITS | Encounter Summary ---
Author Organization [facility] Address [facility] [place] [address] Care Team Providers Care Garbage Pick Up Worker Name Role Phone Bakari Adeola Sanchez APRN Primary Care Provider Encounter Details Date Type Department Care Team (Late st Contact Info) Description 01/10/2019 Telephone [place] [address] Vanessa Hutchison MSW [facility] [place] [address] Social History Tobacco Use Types Packs/Day Years [...] Progress Notes * Vanessa Hutchison MSW - 01/10/2019 5:00 PM EDT Worker reached out to Gerson to check with him to see if he needed resources to help in quitting smoking. Gerson said that he has not smoked for 2 weeks now. He said that he was hoping he would feel better, but he states that he feels the same as when he was smoking. Gerson said that he knows how important it is to quit smoking for his overhaul health and in order to get a transplant. Xander said that his was not helpful as she has never smoked and does not know how hard it can be and how much enjoyment he gets out of it. Worker encouraged Xander to let the team know if he has a set back. He agreed. Xander asked about insurance options as he no longer has his job, but will be getting disability in January. He is currently on his 's insurance (she has to pay more a week now for him to be added), he makes too much for Medicaid, he does not qualify for Medicare as he has not been disabled for 2 years nor has he started dialysis, so worker said he could look into other private insurance for him or remain on his 's. documented in this encounter Plan of Treatment Not on file documented as of this encounter Visit Diagnoses Not on filedocumented in this encounter Care Teams Garbage Pick Up Worker Relationship Specialty Start Date End Date Adeola Villegas APRN PCP - General Family Medicine 01/13/17 02/05/19 documented as of this encounter
--- OUTSIDE RECORDS SUMMARY | 2024-12-05 12:42 | XMS_ITS | Encounter Summary ---
Author Organization [facility] Address [facility] [place] [address] Care Team Providers Care Art Director Name Role Phone Adeola Villegas APRN Primary Care Provider Encounter Details Date Type Department Care Team (Latest Contact Info) Description 09/01/2018 10:30 AM EST - 09/01/2018 11:29 AM EST Hospital [place] [address] Pre-transplant evaluation for kidney transplant Discharge Disposition: [...] daily. 30 tablet 12 06/13/2015 10/24/2018 Insulin [place], Disposable, 31 X 5/16 Needle Inject 1 each subcutaneously 2 times daily (before meals). 100 each 11 07/19/2014 02/25/2024 documented as of this encounter Procedure Notes * Vasu Hernandez MD - 09/01/2018 11:29 AM ESTAssociated Order(s): PULMONARY FUNCTION TEST Normal spirometry. Mild reduction in diffusing capacity. The isolated reduction in diffusing capacity is a non-specific finding consistent with a variety ofcardiopulmonary disorders as well as anemia. Normal resting oximetry on room air. documented in this encounter Plan of Treatment Not on file documented as of this encounter Procedures Procedure Name Priority Date/Time Associated Diagnosis Comments COMMON PULMONARY FUNCTION TEST Routine 09/01/2018 11:29 AM EST Pre-transplant evaluation for kidney transplant documented in this encounter Results * Pulmonary Function Testing (09/01/2018 11:29 AM EST) Narrative Vasu Hernandez MD - 09/01/2018 11:29 AM EST Vasu Hernandez MD ? 09/05/2018 ??1:25 PM Normal spirometry. Mild reduction in diffusing capacity. The isolated reduction in diffusing capacity is a non-specific finding consistent with a variety of cardiopulmonary disorders as well as anemia. Normal resting oximetry on room air. Kiel Paulson MD PFT ORDERABLES documented in this encounter Visit Diagnoses Diagnosis Pre-transplant evaluation for kidney transplant Other specified pre-operative examination documented in this encounter Care Teams Art Director Relationship Specialty Start Date End Date Adeola Villegas APRN PCP - General Family Medicine 01/13/17 02/05/19 documented as of this encounter
--- OUTSIDE RECORDS SUMMARY | 2024-12-05 12:42 | XMS_ITS | Encounter Summary ---
Author Organization [facility] Address [facility] [place] [address] Care Team Providers Care Waste Baler Name Role Phone BakariAdeola Laura DUNN Primary Care Provider Encounter Details Date Type Department Care Team (Late st Contact Info) Description 11/14/2018 Telephone [place] [address] Debra Akins RN Social History Tobacco Use [...] Telephone Encounter - Debra Stafford RN - 11/14/2018 2:27 PM EST See note from Marichuy nephrology RN regarding jaundice. * Telephone Encounter - Debra Stafford RN - 11/14/2018 2:27 PM EST ----- Message from Marichuy So RN sent at 11/14/2018 2:21 PM EST ----- I saw your note on Xander - His PCP office note already in scan doc from 10/19. His LFTs were normal and we saw him in clinic 10/24 with no sign of jaundice documented in this encounter Plan of Treatment Not on file documented as of this encounter Visit Diagnoses Not on filedocumented in this encounter Care Teams Waste Baler Relationship Specialty Start Date End Date Adeola Villegas APRN PCP - General Family Medicine 01/13/17 02/05/19 documented as of this encounter
--- OUTSIDE RECORDS SUMMARY | 2024-12-05 12:42 | XMS_ITS | Encounter Summary ---
Author Organization [facility] Address [facility] [address] Care Team Providers Care Equity Structurer Name Role Phone Bakari Adeola Sanchez APRN Primary Care Provider [phone] Encounter Details Date Type Department Care Team (Late st Contact Info) Description 12/21/2018 11:30 AM EST Office Visit [place] [address] Pre-transplant evaluation for kidney transplant Social History [...] Progress Notes * Vanessa Hutchison MSW - 12/21/2018 11:30 AM EST Transplant Social Work Note: Xadner presents to his visit today with his Melissa. Mental Status: Xander states that he has been more anxious than usual lately. Xander states that he has been having tightness in his chest, trouble breathing, and feeling like something is on his chest without precipitating factors, saying last week it woke him up. He said he needed to go outside to get some fresh air and sit with his before he was able to fall back asleep. He is not taking anything for it but may mention it to his new PCP whom he has not seen yet. He is also worried about his future and his finances. See below. Xander denies symptoms of depression. Xander states that he truly wantsa transplant, but has resigned within himself that with his medical problems he may not survive past age 66. Xander states that he has been more fatigued lately. Xander said just walking around the hospital here made him tired to the point that he had to take frequent breaks. He said that at times he feels like he could fall asleep where he is at. He states that he has not heard from his doctor that he needs tostart dialysis soon. Xander said that he is supposed to get blood work today so that may tell his doctor something. Financial: Xander states that he is concerned about making it financially in the future. He works [employer], but is currently out on short term disability due to his back and his sciatica. 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 He states that he has another 8-10weeks left before his short term disability will end. 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 Xander said that he will begin to get SSDI in January for his kidney disease. He said he is not eligible for SSI but is not sure if the reason is work quarters or income. He is nor under his 's insurance which costs her $150.00 more a week. He asked about applying for Medicare, but worker informed him that he is not eligible yet as he has not started dialysis. When and if he starts dialysis, the financial analyst will figure out with him if it makes sense to apply for Medicare or not. Xander states that he worked at a job for 13 years and recently was informed that he was eligible for a pension in the amount of $25,000. He said his options were to take it now and pay taxes or wait until he was 66. He took it now and was able to pay off all of his credit cards and have a little leftover which he is using as needed. He has another 401 K in the amount of $25,000 and asked if he should [place] it now or save it. Xander also expressed concern that he would be penalized from Social Security if he had that money. Worker encouraged him to not use the money unless he had to. Worker also informed him that he was getting disability due to his medical condition not based on his income. Supports: His , family. Donors: Xander states that several of his siblings have mentioned it. Advanced Directives: Not on file and states that he has done them in the past but wants to update them. Xander named his Melissa Bruner (Darling) as his DPOA followed by his daughter Lata Bruner as his alternate. A copy will be sent to [facility] per his request. Substance Use: Xander smokes about a pack of cigarettes a day. He states that he stopped smoking just yesterday. Xander states that he has quit before and understands the importance of not smoking if he wants to get a transplant. Xander states that he loves smoking as it calms him down. Xander does not drink, but smokes marijuana daily, saying it is now legal in [place], but he also has a medical card. Transportation: Yes, Xander has a car and a license. Coping Skills: Smoking cigarettes, and smoking marijuana. Assessment: Xander has a lot of anxiety about his finances and whether or not he will be able to make it financially in the future. Currently, Xander is making his bills and at this time has a plan moving forward. Xander states that he knows he needs to quit smoking, and is able to do it, but he really enjoys it. documented in this encounter Plan of Treatment Not on file documented as of this encounter Visit Diagnoses Diagnosis Pre-transplant evaluation for kidney transplant Other specified pre-operative examination documented in this encounter Care Teams Equity Structurer Relationship Specialty Start Date End Date Adeola Villegas APRN PCP - General Family Medicine 01/13/17 02/05/19 documented as of this encounter
--- OUTSIDE RECORDS SUMMARY | 2024-12-05 12:42 | XMS_ITS | Encounter Summary ---
Author Organization [facility] Address [facility] [place] [address] Care Team Providers Care Information Technology Assistant Name Role Phone Adeola Villegas APRN Primary Care Provider [phone] Encounter Details Date Type Department Care Team (Late st Contact Info) Description 12/02/2018 Telephone [place] [address] Debra Akins RN Social History Tobacco Use [...] Telephone Encounter - Debra Stafford RN - 12/02/2018 1:27 PM EST Call to [place]. Inquiring about his missed apt on 11/30. He reports not knowing there was an apt. We did send a letter on 11/16 but he does not remember ever getting it. He said he can reschedule for any day. He understands our secretaries will reach out to schedule. documented in this encounter Plan of Treatment Not on file documented as of this encounter Visit Diagnoses Not on filedocumented in this encounter Care Teams Information Technology Assistant Relationship Specialty Start Date End Date Adeola Villegas APRN PCP - General Family Medicine 01/13/17 02/05/19 documented as of this encounter
--- OUTSIDE RECORDS SUMMARY | 2024-12-05 12:42 | XMS_ITS | Encounter Summary ---
Author Organization [facility] Address [facility] [place] [address] Care Team Providers Care Inflated Ball Molder Name Role Phone Bakari Adeola Sanchez APRN Primary Care Provider [phone]- [phone] Encounter Details Date Type Department Care Team (Late st Contact Info) Description 10/19/2018 Telephone [place] [address] Marichuy So RN Social History Tobacco Use [...] Telephone Encounter - Marichuy So RN - 10/19/2018 10:34 AM EST S/O: Call from patient stating he was diagnosed with pneumonia Oct 17. He had increased swelling of hands and feet and was told by PCP to double furosemide - but he didn't and swelling resolved on its own. His metoprolol was also doubled to 50 mg twice daily. He states that PCP told him he neededto follow up with nephrology because his eyes were yellow. Asked patient to clarify further, but he was unclear. Patient very vague in his reports and unable to give much more detail. Call to PCP office to request notes from visit and any labs available. Discussed with Gerson that if his eyes were yellow - that is usually indicative of a liver issue, not a kidney issue and that he may need to be seen by another specialist, but that we would know more once his records were received. P: Above sent to Dr Khan for review and recommendation. Patient has follow up appointment scheduled for 10/24 External results received and entered Results for GERSON BONILLA ( ) as of 10/19/2018 11:13 08/10/2018 10:22 10/17/2018 00:00 WBC 6.06 (External Lab) RBC 3.47 (External Lab) Hemoglobin 10.5 (External Lab) Hematocrit 32.2 (External Lab) MCV 92.8 (External Lab) MCH 30.3 (External Lab) MCHC 32.6 (External Lab) RDWCV 13.5 (External Lab) Platelets 304 (External Lab) MPV 11 (External Lab) Sodium 141 138 (External Lab) Potassium 4.3 4.7 (External Lab) Chloride 106 103 (External Lab) CO2 23 27 (External Lab) Anion Gap 12 8 (External Lab) BUN 68 (H) 42 (External Lab) Creatinine 3.32 (H) 3.82 (External Lab) eGFR 20 (L) 16.78 (External Lab) eGFR 24 (L) Glucose Lvl 137 292 (External Lab) POC Glucose Calcium 8.2 (L) 9.2 (External Lab) Osmolality 312 (H) Total Protein 6.3 (External Lab) Albumin 2.8 (External Lab) Total Bilirubin 0.3 (External Lab) Alk Phos 128 (External Lab) AST 20 (External Lab) ALT 30 (External Lab) documented in this encounter Plan of Treatment Not on file documented as of this encounter Procedures Procedure Name Priority Date/Time Associated Diagnosis Comments HEMOGRAM Routine 10/17/2018 BASIC METABOLIC PANEL Routine 10/17/2018 documented in this encounter Results * (ABNORMAL) Hemogram (10/17/2018) White Blood Cell 6.06(Exte rnal Lab) Red Blood Cell 3.47(Exte rnal Lab) Hemoglobin 10.5(Exte rnal Lab) Hematocrit 32.2(Exte rnal Lab) Mean Cell Volume 92.8(Exte rnal Lab) Mean Cell Hemoglobin 30.3(Exte rnal Lab) Mean Cell Hemoglobin Concentration 32.6(Exte rnal Lab) RDW coefficient of variation 13.5(Exte rnal Lab) Platelet 304(Exter nal Lab) Mean Platelet Volume 11(Nuclear Plant Instrument Technician al Lab) Blood specimen (specimen) 10/17/2018 Historical Provider HEMATOLOGY ORDERA BLES * (ABNORMAL) Basic Metabolic Panel (non-fasting) (10/17/2018) Glucose 292(Exter nal Lab) Blood Urea Nitrogen 42(Nuclear Plant Instrument Technician al Lab) Creatinine 3.82(Exte rnal Lab) Est Glomerular Filtration Rate 16.78(Ext ernal Lab) Sodium 138(Exter nal Lab) Potassium 4.7(Exter nal Lab) Chloride 103(Exter nal Lab) Carbon Dioxide 27(Nuclear Plant Instrument Technician al Lab) Calcium 9.2(Exter nal Lab) Albumin 2.8(Exter nal Lab) Protein, Total 6.3(Exter nal Lab) Bilirubin, Total 0.3(Exter nal Lab) Alkaline Phosphatase 128(Exter nal Lab) Anion Gap 8(Externa l Lab) Aspartate Aminotransferase 20(Nuclear Plant Instrument Technician al Lab) Alanine Aminotransferase 30(Nuclear Plant Instrument Technician al Lab) Blood specimen (specimen) 10/17/2018 Historical Provider CHEMISTRY ORDERAB LES documented in this encounter Visit Diagnoses Not on filedocumented in this encounter Care Teams Inflated Ball Molder Relationship Specialty Start Date End Date Adeola Villegas APRN PCP - General Family Medicine 01/13/17 02/05/19 documented as of this encounter
--- OUTSIDE RECORDS SUMMARY | 2024-12-05 12:42 | XMS_ITS | Encounter Summary ---
Author Organization [facility] Address [facility] [place] [address] Care Team Providers Care Cadd Manager Name Role Phone Bakari Adeola Laura DUNN Primary Care Provider [phone] Reason for Visit * Auth/Cert Specialty Diagnoses / Procedures Referred By Nader gardiner Referred To Contact Diagnoses CKD STAGE IV Procedures PRO ANASTOMOSIS, AV, ANY SITE AV FISTULA CREATION, DIRECT HEMODIALYSIS, ANY SITE, EG GABRIEL FISTULA UPPER EXTREMITY (WRVU 11.9) Referral ID Status Reason Start Date Expiration Date Visits Re quested Visits Authorized [id number] 1 1 Encounter Details Date Type Department Care Team (Late st Contact Info) Description 09/05/2018 4:58 PM EST Anesthesia [place] [id number] Herb Kimball MD [facility] [place] [address] Gonzalez Mercado CRNA Anesthesia Record Procedure Summary Procedure Name Responsible Anesthesiologist Anesthesia Start Time Anesthesia Stop Time AV FISTULA CREATION, DIRECT HEMODIALYSIS, ANY SITE, EG GABRIEL FISTULA UPPER EXTREMITY (WRVU 11.9) (Left: Arm) Herb Kimball MD 09/05/18 1658 09/05/18 1905 Events Date Time Event Comment 09/05/2018 1658 AN Verify 1658 Start 1659 An Start Data 1902 an stop data 1904 Recovery or ICU Handoff Annemarie ent care was transferred to the destination unit staff after review of the patient's medical history, current anesthetic/surgical status and plan, according to the Provider Handoff Checklist. 1905 Stop 09/08/2018 2145 Meds Name Total EPINEPHrine injection 75 mcg Lidocaine 1.5% 30 mL vancomycin 1.25 g sodium in chloride 0.9 % 250 mL 1.25 g Dexmedetomidine 16 mcg Heparin 8,000 Units Protamine 40 mg Sodium Chloride 0.9% 200 mL * Agents Name O2 Air N2O Sevoflurane (et) O2 Auxiliary Flowmeter 1 * Blood No blood administrations on file. Lines, Drains, and Airways Type Details Placement Removal Incision 09/05/18; 1726; arm; vertical; 06/22/22 (LDA cleanup utility RA#[id number]); 1715 (LDA cleanup utility RA#[id number]) 09/05/18 1726 by Yeimi Anthony RN 06/22/22 1715 by David Brennan documented in this encounter Social History Tobacco [...] OR Notes * Anesthesia Postprocedure Evaluation - Agustin Scott MD - 09/05/2018 7:15 PM EST [facility] Department of Anesthesiology Post-procedure Note Patient: Gerson Joya Procedure Summary Date: 09/05/18 Room / Location: [facility] OR [address] [place] [address] MAIN OR Anesthesia Start: 1657 Anesthesia Stop: 1904 Procedure: AV FISTULA CREATION, DIRECT HEMODIALYSIS, ANY SITE, EG GABRIEL FISTULA UPPER EXTREMITY (WRVU 11.9) (Left Arm) Diagnosis: (CKD STAGE IV) Surgeon: Scout Reese MD Responsible Provider: Herb Kimball MD Anesthesia Type: regional ASA Status: 3 All Anesthesia Providers: Anesthesiologist: Herb Kimball MD; Agustin Alcala MD CATCHER HELPER: Flaco Gomez CRNA Most Recent Vitals: 09/05/181911 BP: 157/78 Pulse: 74 Resp: 16 Temp: 36.8 ??C (98.2 ??F) SpO2: 96% Pain 0(in right arm) (11/12/18 1912) Patient Location: PACU/SDP Level of Consciousness: Awake and Alert Pain Management: Satisfactory Analgesia PONV: None Cardiovascular Status: Hemodynamically Stable Respiratory Status: Stable Respiratory Status Postoperative Fluid Status: Intravascular EUvolemia Possible Anesthetic Complications: NONE apparent at time of evaluation Final Primary Anesthesia Type: Regional (The anesthetic type performed was the same as planned.) Comments: * Anesthesia Procedure Notes - Chad Huff MD - 09/05/2018 4:25 PM EST Associated Order(s): Anesthesia Block Anesthesia Block Performed by: Chad Huff MD Authorized by: Agustin Alcala MD Start Time: 09/05/2018 4:11 PM End Time: 09/05/2018 4:21 PM The patient was greeted; the risks and benefits of the procedure were reviewed. Indication: Post-op Pain Control Post-op pain management at the request of surgeon. Block Type: Infraclavicular nerve block Laterality: Left Position: Supine Prep: Chlorhexidine, patient draped and mask, cap, sterile gloves, hand hygeine Skin Anesthetic: Lidocaine 1% dose: 3 [id number] 21 10 cm Ultrasound Guided: Live and in-plane Dummy for Ultrasound Single-Shot: Single-shot Lidocaine 1.5%, 30 mL EPINEPHrine injection, 75 mcg no complications Resident/CATCHER HELPER:: Chad Huff MD Attending Physician:: Agustin Alcala MD * Anesthesia Preprocedure Evaluation - Agustin Alcala MD - 09/05/2018 4:21 PM EST Images from the original note were not included. Pre-Anesthesia Evaluation for: Gerson Joya a 52 y.o. male. Procedure(s): AV FISTULA CREATION, DIRECT HEMODIALYSIS, ANY SITE, EG GABRIEL FISTULA UPPER EXTREMITY ([facility] Patient Active Problem List Diagnosis ??? Hyperglycemia [...] ??? Cigarette smoker ??? Unspecified hearing loss Past Medical History: Diagnosis Date ??? Diabetes mellitus ??? 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 Social History Tobacco Use ??? Smoking status: Former Smoker Packs/day: 0.50 Types: Cigarettes Last attempt to quit: 07/14/2018 Years since quittin.1 ??? Smokeless tobacco: Never Used Substance Use Topics ??? Alcohol use: No Frequency: Never Social History Substance and Sexual Activity Drug Use Yes ??? Types: Marijuana Allergies Allergen Reactions ??? Clindamycin Swelling. ??? Gabapentin swelling ??? Penicillins Unknown reaction as a child. Medications: MAR and/or home medications have been reviewed. Physical Exam: Most Recent Vitals: 09/05/18 1436 BP: 165/73 Pulse: 73 Resp: 14 Temp: 36.5 ??C (97.7 ??F) SpO2: 98% Body mass index is 29.24 kg/m??. Weight: 92.4 kg (203 lb 12.8 oz) Airway Assessment: Mallampati: II TM distance: >3 FB Neck ROM: full Cardiovascular Assessment: Pulmonary Assessment: Dental Assessment: (+) upper dentures [facility] Assessment: Anesthesia Plan: ASA 3 regional, with a(n) intravenous induction Gerson joya is a 52 y/o M here for L arm AV fistula creation. PMH significant for DM (BG 81), L4-5lumbar disc disease with sciatic symptoms. No anticoagulation. No numbness/tingling in upper extremities. No problems with prior anesthetics, no [facility] airway records. No GERD at the moment but was having some earlier. NPO appropriate. No CP or SOB with 4 mets. No strokes/seizures. Plan: Infraclavicular block with MAC GA LMA backup Anesthesia Staff (Fredrick) I have seen and examined the patient. I agree with the above assessment and plan. Region - Other Informed Consent: Anesthetic plan and risks discussed with patient. Use of blood products discussed with patient who consented to blood products. Plan discussed with attending. PAT Staff Note documented in this encounter Plan of Treatment Not on file documented as of this encounter Procedures Procedure Name Priority Date/Time Associated Diagnosis Comments ANESTHESIA BLOCK Routine 09/05/2018 4:25 PM EST documented in this encounter Results * Anesthesia Block (09/05/2018 4:25 PM EST) Narrative Agustin Alcala MD - 09/05/2018 4:25 PM EST Chad Huff MD ? 09/05/2018 ??4:26 PM Anesthesia Block Performed by: Chad Huff MD Authorized by: Agustin Alcala MD Start Time: ??09/05/2018 4:11 PM End Time: ??09/05/2018 4:21 PM The patient was greeted; the risks and benefits of the procedure were reviewed. ?? Indication: ??Post-op Pain Control Post-op pain management at the request of surgeon. ?? Block Type: ??Infraclavicular nerve block Laterality: ??Left Position: ??Supine Prep: ??Chlorhexidine, patient draped and mask, cap, sterile gloves, hand hygeine Skin Anesthetic: ??Lidocaine 1% dose: ??3 [id number] 21 10 cm Ultrasound Guided: ??Live and in-plane Dummy for Ultrasound ?? Single-Shot: ??Single-shot Lidocaine 1.5%, 30 mL EPINEPHrine injection, 75 mcg no complications ?? Resident/CATCHER HELPER:: ??Chad Huff MD Attending Physician:: ??Agustin Alcala MD Agustin Alcala MD SAMPLE SHOE INSPECTOR AND REWORKER [facility] documented in this encounter Visit Diagnoses Not on filedocumented in this encounter Administered Medications Inactive Administered Medications - up to 3 most recent administrations Medication Order MAR Action Action Date Dose Rate Site dexmedetomidine (PRECEDEX) injection PRN, Starting on 09/05/18 at 1715, Until Wed09/05/18 at 1905, Anesthesia Intra-op, Routine Given 09/05/2018 6:12 PM EST 8 mcg Given 09/05/2018 5:15 PM EST 8 mcg EPINEPHrine (ADRENALIN) injection Starting on Wed09/05/18 at 1625, Until Wed09/05/18 at 1625, Anesthesia Intra-op, Routine Given 09/05/2018 4:25 PM EST 75 mcg heparin (porcine) injection PRN, Starting on Wed09/05/18 at 1750, Until Wed09/05/18 at 1905, Anesthesia Intra-op, Routine Given 09/05/2018 5:50 PM EST 8,000 Units lidocaine 15 mg/mL (1.5 %) injection Perineural, Starting on Wed09/05/18 at 1625, Until Wed09/05/18 at 1625, Anesthesia Intra-op, Routine Given 09/05/2018 4:25 PM EST 30 mLs protamine injection PRN, Starting on Wed09/05/18 at 1830, Until Wed09/05/18 at 1905, Anesthesia Intra-op, Routine Given 09/05/2018 6:30 PM EST 40 mg sodium chloride 0.9% infusion CONTINUOUS PRN, Starting on Wed09/05/18 at 1658, Until Wed09/05/18 at 1905, Anesthesia Intra-op New Bag 09/05/2018 4:58 PM EST vancomycin 1.25 g sodium in chloride 0.9% 250 mL 1,250 mg, Intravenous, at 200 mL/hr, ONCE, 1 dose, On Wed09/05/18 at 1500, Redose every 8 hours if CrCl is greater than 50. Redose every 16 hours if CrCl is between 20-50., Day of Surgery (Day of Procedure), Routine, Indication for (Active or Suspected): Prophylaxis Given 09/05/2018 5:05 PM EST 1.25 g documented in this encounter Care Teams Cadd Manager Relationship Specialty Start Date End Date Adeola Villegas APRN PCP - General Family Medicine 01/13/17 02/05/19 documented as of this encounter
--- OUTSIDE RECORDS SUMMARY | 2024-12-05 12:42 | XMS_ITS | Encounter Summary ---
Author Organization [facility] Address [facility] [place] [address] Care Team Providers Care Distributed Generation Project Manager Name Role Phone Adeola Villegas APRN Primary Care Provider Encounter Details Date Type Department Care Team (Latest Contact Info) Description 09/01/2018 1:12 PM EST - 09/01/2018 11:59 PM EST Hospital Encounter XRay at [address] [place] [address] Kiel Paulson MD [facility] [place] [address] Pre-transplant evaluation for kidney transplant Discharge Disposition: [...] times daily. 11/04/2018 blood sugar diagnostic strips (One to the WorldTOUCH ULTRA TEST) Strip 1 each by Other [...] daily. 30 tablet 12 06/13/2015 10/24/2018 Insulin [place], Disposable, 31 X 5/16 Needle Inject 1 each subcutaneously 2 times daily (before meals). 100 each 11 07/19/2014 02/25/2024 documented as of this encounter Plan of Treatment Not on file documented as of this encounter Procedures Procedure Name Priority Date/Time Associated Diagnosis Comments XR CHEST PA AND LATERAL Routine 09/01/2018 1:21 PM EST Pre-transplant evaluation for kidney transplant documented in this encounter Results * XR Chest PA & Lateral (Generic) (09/01/2018 1:21 PM EST) Anatomical Region Laterality Modality Chest N/A Digital Radiogra phy Impressions 09/01/2018 1:25 PM EST Mild airways wall thickening consistent with chronic inflammation/chronic bronchitis. Narrative 09/01/2018 1:25 PM EST EXAMINATION: XR CHEST PA AND LATERAL (GENERIC) CLINICAL HISTORY: Pre-op Transplant TECHNIQUE: PA and lateral views of the chest. COMPARISON: None. FINDINGS: Mild airways wall thickening consistent with chronic inflammation/chronic bronchitis. Otherwise, lungs appear symmetrically expanded and clear. The cardiomediastinal silhouette, addison, pulmonary vessels, and pleura are within normal limits. No significant osseous findings are seen. Procedure Note Huma Calderón MD - 09/01/2018 EXAMINATION: XR CHEST PA AND LATERAL (GENERIC) CLINICAL HISTORY: Pre-op Transplant TECHNIQUE: PA and lateral views of the chest. COMPARISON: None. FINDINGS: Mild airways wall thickening consistent with chronic inflammation/chronic bronchitis. Otherwise, lungs appear symmetricallyexpanded and clear. The cardiomediastinal silhouette, addison, pulmonary vessels, andpleura are within normal limits. No significant osseous findings are seen. IMPRESSION Mild airways wall thickening consistent with chronic inflammation/chronic bronchitis. Kiel Paulson MD IMG DX ORDERABLES documented in this encounter Visit Diagnoses Diagnosis Pre-transplant evaluation for kidney transplant Other specified pre-operative examination documented in this encounter Care Teams Distributed Generation Project Manager Relationship Specialty Start Date End Date Adeola Villegas APRN PCP - General Family Medicine 01/13/17 02/05/19 documented as of this encounter
--- OUTSIDE RECORDS SUMMARY | 2024-12-05 12:42 | XMS_ITS | Encounter Summary ---
[place] [address] Care Team Providers Care Production Artist Name Role Phone Bakari Adeola Laura DUNN Primary Care Provider [phone]- [phone] Encounter Details Date Type Department Care Team (Late st Contact Info) Description 12/21/2018 10:00 AM EST Tech Visit [place] [id number] Fiona Puentes, [place] Pre-transplant evaluation for kidney transplant Social History [...] Procedure Name Priority Date/Time Associated Diagnosis Comments MELLY, LEGS, MULTIPLE LEVELS Routine 12/21/2018 9:59 AM EST Pre-transplant evaluation for kidney transplant documented in this encounter Results * MELLY, legs, multiple levels (12/21/2018 9:59 AM EST) VB Text Report Department: Vascular Surgery Lab Patient: [id number] (GERSON BONILLA) CPT: 89276 ICD10: Z01.818 Referring Physician: KIEL SINGH ?? Indications: ?? Pre transplant evaluation, ? PAD Diabetes mellitus: ??Yes ICD10 Diagnosis Code: Z01.818 Findings: Right ?Pressure (mm Hg) ?? MELLY ??Waveform ?TBI ?? Brachial Artery ?143 ? Common Femoral Artery ?Triphasic ? Popliteal Artery ? Triphasic ? Dorsalis Pedis (Ankle) Artery ?150 ? 1.05 ??Biphasic ? Posterior Tibial (Ankle) Artery ??151 ? 1.06 ??Biphasic ? Great Toe ?94 ? 0.66 ?? Left ? Pressure (mm Hg) ?? MELLY ??Waveform ?TBI ?? Common Femoral Artery ?Triphasic ? Popliteal Artery ? Triphasic ? Dorsalis Pedis (Ankle) Artery ?162 ? 1.13 ??Biphasic ? Posterior Tibial (Ankle) Artery ??152 ? 1.06 ??Biphasic ? Great Toe ?99 ? 0.69 ?? Interpretation: RIGHT: No significant lower extremity arterial occlusive disease identified at rest to the level of the ankle. There is mild disease identified at the foot/toe level. LEFT: No significant lower extremity arterial occlusive disease identified at rest to the level of the ankle. There is mild disease identified at the foot/toe level. Comparison: ??No previous study in our vascular lab database for comparison. Electronically Signed by: CHARANJIT FORBES on 2018-12-25 05:44:27 PM VASCUBASE VB Text Report End of Report VASCUBASE 12/21/2018 9:59 AM EST Kiel Singh MD VASCULAR ORDERABL ES VASCUBASE documented in this encounter Visit Diagnoses Diagnosis Pre-transplant evaluation for kidney transplant Other specified pre-operative examination documented in this encounter Care Teams Production Artist Relationship Specialty Start Date End Date Adeola Villegas APRN PCP - General Family Medicine 01/13/17 02/05/19 documented as of this encounter
--- OUTSIDE RECORDS SUMMARY | 2024-12-05 12:42 | XMS_ITS | Encounter Summary ---
Author Organization [facility] Address [facility] [place] [address] Care Team Providers Care Grants Manager Name Role Phone Bakari Adeola Sanchez APRN Primary Care Provider Encounter Details Date Type Department Care Team (Late st Contact Info) Description 11/14/2018 Telephone [facility] [place] [address] Debra Akins RN Social History Tobacco Use [...] Encounter - Debra Stafford RN - 11/14/2018 11:55 AM EST Call to Gerson to discuss his transplant evaluation status. VM left for him to return my call. We need to discuss: 1. He needs to quit smoking 2. Reported colonoscopy was done at [facility] - the most recent colonoscopy they have is from 2009 (tubular adenoma and hyperplastic). Will require Q3 year colonoscopy for us. 3.ABIs 4. Had gone to PCP for pneumonia last month. There was question of him looking jaundiced but patient did not want to do further work up. I have requested this office note so we can explore this further. documented in this encounter Plan of Treatment Not on file documented as of this encounter Visit Diagnoses Not on filedocumented in this encounter Care Teams Grants Manager Relationship Specialty Start Date End Date Adeola Villegas APRN PCP - General Family Medicine 01/13/17 02/05/19 documented as of this encounter
--- OUTSIDE RECORDS SUMMARY | 2024-12-05 12:42 | XMS_ITS | Encounter Summary ---
Author Organization [facility] [place] [address] Care Team Providers Care Director Education Name Role Phone Adeola Villegas APRN Primary Care Provider Encounter Details Date Type Department Care Team (Latest Contact Info) Description 09/29/2018 8:50 AM EST - 09/29/2018 11:59 PM EST Hospital Encounter [place] [phone] Oanh Díaz, [place] CKD (chronic kidney disease) stage 4, GFR 15-29 ml/min Discharge Disposition: Home Social History Tobacco Use [...] daily. 30 tablet 12 06/13/2015 10/24/2018 Insulin [place], Disposable, 31 X 5/16 Needle Inject 1 each subcutaneously 2 times daily (before meals). 100 each 11 07/19/2014 02/25/2024 documented as of this encounter Plan of Treatment Not on file documented as of this encounter Procedures Procedure Name Priority Date/Time Associated Diagnosis Comments AVF/ESTABLISHED ACCESS EVALUATION Routine 09/29/2018 8:54 AM EST CKD (chronic kidney disease) stage 4, GFR 15-29 ml/min documented in this encounter Results * AVF/Established Access Evaluation (09/29/2018 8:54 AM EST) VB Text Report Department: Vascular Surgery Lab Patient: [id number] (GERSON BONILLA) CPT: 87119 ICD10: N18.4 Referring Physician: MANPREET REESE ?? [...] Manpreet Reese MD VASCULAR ORDERABLE S VASCUBASE documented in this encounter Visit Diagnoses Diagnosis CKD (chronic kidney disease) stage 4, GFR 15-29 ml/min Chronic kidney disease, Stage IV (severe) documented in this encounter Care Teams Director Education Relationship Specialty Start Date End Date Adeola Villegas APRN PCP - General Family Medicine 01/13/17 02/05/19 documented as of this encounter
--- OUTSIDE RECORDS SUMMARY | 2024-12-05 12:42 | XMS_ITS | Encounter Summary ---
[place] [address] Care Team Providers Care Pest Control Service Technician Name Role Phone Adeola Villegas APRN Primary Care Provider [phone] Encounter Details Date Type Department Care Team (Late st Contact Info) Description 11/14/2018 Orders Only [place] [address] Debra Akins, RN Pre-transplant evaluation for kidney [...] examination documented in this encounter Care Teams Pest Control Service Technician Relationship Specialty Start Date End Date Adeola Villegas APRN PCP - General Family Medicine 01/13/17 02/05/19 documented as of this encounter
--- OUTSIDE RECORDS SUMMARY | 2024-12-05 12:42 | XMS_ITS | Encounter Summary ---
Author Organization [facility] Address [facility] [place] [address] Care Team Providers Care Library Consultant Name Role Phone Adeola Villegas MONA Primary Care Provider [phone] Encounter Details Date Type Department Care Team (Late st Contact Info) Description 09/12/2018 Interpretation Only [address] [place] [id number] Katrina Workman MD Social History Tobacco Use Types Packs/Day [...] Name Priority Date/Time Associated Diagnosis Comments XR FLUORO NO RAD <1HR - RADIOLOGY USE Routine 09/12/2018 7:30 AM EST documented in this encounter Results * XR Fluoro No Rad <1Hr - Radiology Use (09/12/2018 7:30 AM EST) Anatomical Region Laterality Modality N/A Radiographic Traci ging 09/12/2018 7:30 AM EST Impressions 09/12/2018 9:20 AM EST C-arm fluoroscopy used for intraoperative guidance. Fluoroscopy time: 3 Dose (mGy): 1 Surgical hardware approaching posteriorly at the level of the L4 inferior endplate. Narrative 09/12/2018 9:20 AM EST EXAMINATION: C-ARM (<1HR) CLINICAL HISTORY: LEFT L4-5 MSD RE-DO - OR ROOM 2, ?? Procedure Note Rodger Walsh MD - 09/12/2018 EXAMINATION: C-ARM (<1HR) CLINICAL HISTORY: LEFT L4-5 MSD RE-DO - OR ROOM 2, IMPRESSION C-arm fluoroscopy used for intraoperative guidance. Fluoroscopy time: 3 Dose (mGy): 1 Surgical hardware approaching posteriorly at the level of the [id number] endplate. Katrina Workman MD IMG FLUORO ORDERABL ES documented in this encounter Visit Diagnoses Not on filedocumented in this encounter Care Teams Library Consultant Relationship Specialty Start Date End Date Adeola Villegas APRN PCP - General Family Medicine 01/13/17 02/05/19 documented as of this encounter
--- OUTSIDE RECORDS SUMMARY | 2024-12-05 12:42 | XMS_ITS | Encounter Summary ---
[place] [address] Care Team Providers Care Disaster Recovery Manager Name Role Phone BakariAdeola Laura DUNN Primary Care Provider [phone] Encounter Details Date Type Department Care Team (Late st Contact Info) Description 10/19/2018 Orders Only Neph[place] [address] Anuja Chen, RN Anemia of chronic renal failure, stage 4 (severe); CKD (chronic kidney disease) stage 4, GFR [...] this encounter Results * Gold Tube HOLD (10/24/2018 1:06 PM EST) Gold Hold Sample in lab. [facility] Blood specimen (specimen) 10/24/2018 1:06 PM EST 10/24/2018 1:18 PM EST Agustin Espinosa MD CHEMISTRY ORDERABLE S [facility] [place] [place] [address] * (ABNORMAL) PTH (10/24/2018 1:06 PM EST) Parathyroid Hormone 154(H) 15 - 65 pg/mL [facility] Blood specimen (specimen) 10/24/2018 1:06 PM EST 10/24/2018 1:18 PM EST Narrative Resulting Agency Comment Spec In Lab Agustin Espinosa MD CHEMISTRY ORDERABLE S Performing Organization Address City/[facility]/ZIP Co de Phone Number [facility] [place] [place] [address] * (ABNORMAL) Albumin Level (10/24/2018 1:06 PM EST) Albumin 3.0(L) 3.2 - 5.2 gm/dL [facility] Blood specimen (specimen) 10/24/2018 1:06 PM EST 10/24/2018 1:18 PM EST Narrative Resulting Agency Comment Spec In Lab Agustin Espinosa MD CHEMISTRY ORDERABLE S Performing Organization Address City/[facility]/ZIP Co de Phone Number [facility] [place] [address] * Phosphorus (10/24/2018 1:06 PM EST) Phosphorus 4.4 2.5 - 4.5 mg/dL [facility] Blood specimen (specimen) 10/24/2018 1:06 PM EST 10/24/2018 1:18 PM EST Narrative Resulting Agency Comment Spec In Lab Agustin Espinosa MD CHEMISTRY ORDERABLE S Performing Organization Address City/[facility]/ZIP Co de Phone Number [facility] [place] [place] [address] * (ABNORMAL) Basic Metabolic Panel (non-fasting) (10/24/2018 1:06 PM EST) Glucose 86 65 - 199 mg/dL [facility] Comment:Diabetes: >=200 mg/d L plus symptoms Blood Urea Nitrogen 54(H) 10 - 20 mg/dL [facility] Creatinine 4.15(H) 0.80 - 1.50 mg/dL [facility] Sodium 142 135 - 145 mmol/L [facility] Potassium 4.7 3.5 - 5.0 mmol/L [facility] Comment: Please note: ??Patients with WBC >100,000 may have falsely elevated Potassium levels. ??For accurate Potassium quantification in these patients send serum separator tube (gold top) for subsequent determinations. ??Contact the Clinical Chemistry Laboratory if there are any questions. Chloride 106 98 - 107 mmol/L [facility] Carbon Dioxide 23 22 - 31 mmol/L [facility] Anion Gap 13 5 - 15 mmol/L [facility] Calcium 8.6 8.5 - 10.5 mg/dL [facility] Est Glomerular Filtration Rate 16(L) >=60 mL/min/1. 73 m?? [facility] Comment: The eGFR was calculated using the CKD-EPI equation. As with all creatinine based estimates of kidney function, eGFR values calculated with the CKD-EPI equation are not accurate in patients with acute kidney failure, extremes of body mass or the acutely ill. [email or web address] eGFR 18(L) >=60 mL/min/1. 73 m?? [facility] Comment: The eGFR was calculated using the CKD-EPI equation. As with all creatinine based estimates of kidney function, eGFR values calculated with the CKD-EPI equation are not accurate in patients with acute kidney failure, extremes of body mass or the acutely ill. [email or web address] Blood specimen (specimen) 10/24/2018 1:06 PM EST 10/24/2018 1:18 PM EST Narrative Resulting Agency Comment Spec In Lab Agustin Espinosa MD CHEMISTRY ORDERABLE S [facility] [place] [place] [address] documented in this encounter Visit Diagnoses Diagnosis Anemia of chronic renal failure, stage 4 (severe) CKD (chronic kidney disease) stage 4, GFR 15-29 ml/min Chronic kidney disease, Stage IV (severe) documented in this encounter Care Teams Disaster Recovery Manager Relationship Specialty Start Date End Date Adeola Villegas APRN PCP - General Family Medicine 01/13/17 02/05/19 documented as of this encounter
--- OUTSIDE RECORDS SUMMARY | 2024-12-05 12:42 | XMS_ITS | Encounter Summary ---
Author Organization [facility] Address [facility] [place] [address] Care Team Providers Care Language Path Name Role Phone Adeola Villegas APRN Primary Care Provider Encounter Details Date Type Department Care Team (Late st Contact Info) Description 12/23/2018 External Results [place] [address] Kiel Paulson MD [facility] [place] [address] Social History Tobacco Use Types Packs/Day Years [...] Procedure Name Priority Date/Time Associated Diagnosis Comments [facility] DSA SCREENING - RECIPIENT Routine 12/23/2018 documented in this encounter Results * Transplant: DSA Screening (Recipient) - EXTERNAL collections (12/23/2018) Kiel Paulson MD EXTERNAL LAB [facility] [place] documented in this encounter Visit Diagnoses Not on filedocumented in this encounter Care Teams Language Path Relationship Specialty Start Date End Date Adeola Villegas APRN PCP - General Family Medicine 01/13/17 02/05/19 documented as of this encounter
--- OUTSIDE RECORDS SUMMARY | 2024-12-05 12:42 | XMS_ITS | Encounter Summary ---
Author Organization [facility] Address [facility] [place] [address] Care Team Providers Care Spray Unit Feeder Name Role Phone Adeola Villegas APRN Primary Care Provider Encounter Details Date Type Department Care Team (Late st Contact Info) Description 09/01/2018 9:30 AM EST Office Visit [place] [address] Daily, Kiel Clark MD [facility] [place] [address] ESRD (end stage renal disease); Pre-transplant evaluation for kidney transplant Social History [...] Sign Reading Time Taken Comments Blood Pressure 178/84 09/01/2018 8:59 AM EST Pulse 68 09/01/2018 8:59 AM EST Temperature 36.7 ??C (98 ??F) 09/01/2018 8:59 AM EST Respiratory Rate - - Oxygen Saturation 100% 09/01/2018 8:59 AM EST Inhaled Oxygen Concentration - - Weight 91.7 kg (202 lb 3.2 oz) 09/01/2018 8:59 A M EST Height - - Body Mass Index 29.01 08/11/2018 11:33 AM EDT documented in this encounter Progress Notes * Ruby Connor, LUCÍA - 09/01/2018 9:30 AM EST Confirmed last name and . * An Lilly - 09/01/2018 9:30 AM EST Transplant Beauty Specialist Note: Met with patient during the pre- transplant visit to review medical and pharmacy benefits for transplant services. He is covered under [employer] through is employer. He states that he has been out of work for about a month due to issues with his back and he faces pot ential surgery. He states that his physician has recommended that he apply for disability and he has an appointment with his local SS office early September. I explained the difference between ESRD disability criteria, which is very specific for approval, and other disability, which is difficult to predict approval. He asked about insurance coverage between when his employer plan ends and Medicarebegins. He has the option of COBRA coverage through his employer plan and going through [employer] to get a marketplace plan. At this time it is impossible to outline what his coverage will be because his disability status and treatment plan will affect what he is eligible for and when. We reviewed the post transplant medication list in detail, including estimated copays for each medication - A copy of this list was provided to the patient. He is facing approximately $215.00 per month in post transplant medication costs. He states that he can manage this cost. Financial Clearance: Cleared for living and donor kidney transplant. Coverage Review: Primary Insurance: [facility] Secondary Plan:None Pharmacy Carrier: [facility]1 Drug Dose/Form # for 30 Days Copay 30 Day Supply [place] Required? Mail Order Available Copay 90 Day Supply Prograf 1mg cap 180 caps $60 $ Cellcept 250 mg cap 180 caps $15 $ Myfortic 360 mg tab 120 tabs $ $ Bactrim SS tab 30 tabs $15 $ Mepron 750 mg/5ml 150 ml $ $ Diltiazem CD 120 mg tablet 30 tabs $15 $ K Phos Original 500 mg tab 120 tabs $40 $ Magnesium Gluconate 500 mg tab 120 tabs $10-$25 OVER THE COUNTER, RIVERA AT LOCAL PHARMACY $ Pantoprazole 40 mg cap 30 tabs $15 $ Nystatin 100K units/ml 600 ml $15 $ Valcyte 450 mg tab 60 tabs $15 $ Valtrex 500 mg tab 60 tabs $15 $ $215.00 * Daily, Kiel Clark MD - 09/01/2018 9:30 AM EST Initial Evaluation: Kidney Transplantation Date: 09/01/2018 Patient: Gerson Bruner Today I had the opportunity to meet Gerson Bruner, whom You had referred to me for evaluation for kidney transplant. As you re aware he is a 52 y.o. male with advanced chronic kidney disease attributed to diabetes. He is known about his diabetes for approximately 30 years. He describes symptoms ofnephropathy retinopathy and neuropathy in his feet. He tells me he has no problems with foot ulcers. His hypertension is a newer diagnosis. He is quite hypertensive in the clinic today, but has not started his new antihypertensive medicine. Importantly, he is complaining of significant sciatica today. He has a recent MRI suggesting a disc herniation. He has some pain radiating down his left leg and into his back which she has had for about 3 weeks. 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 He has an appointment to see someone about it next week. He has no other complaints at this time. Problem List: Patient Active Problem List Diagnosis Code ??? Type II or unspecified type diabetes mellitus with neurological manifestations, uncontrolled(250.62) E11.49 ??? Leg cramps R25.2 ??? Cigarette smoker F17.210 ??? Unspecified hearing loss H91.90 ??? Herniation of lumbar intervertebral disc with radiculopathy M51.16 ??? Anemia of chronic renal failure, stage 4 (severe) N18.4, D63.1 ??? Hyperkalemia E87.5 ??? Essential hypertension with goal blood pressure less than 130/80 I10 ??? Diabetes mellitus E11.9 ??? Hyperlipidemia E78.5 ??? Proteinuria R80.9 ??? Elevated blood pressure [id number] ??? Essential hypertension I10 ??? CKD (chronic kidney disease) stage 4, GFR 15-29 ml/min N18.4 ??? Pre-transplant evaluation for CKD (chronic kidney disease) Z01.818 ??? Anemia D64.9 ??? Hyperglycemia R73.9 Past Medical History: Past Medical History: Diagnosis Date ??? Diabetes mellitus ??? Herniation of lumbar intervertebral disc with radiculopathy 08/16/2015 L4-5 left Past Surgical History: History reviewed. No pertinent surgical history. Previous minimally invasive laminectomy. Open appendectomy through a paramedian incision on the right Laparoscopic cholecystectomy FAMILY HISTORY: Family History Problem Relation Age of Onset ??? Diabetes Mother ??? Cancer Father ??? Diabetes Paternal Grandmother ??? Heart Disease Paternal Grandfather SOCIAL HISTORY: Social History Tobacco Use ??? Smoking status: Former Smoker Packs/day: 0.50 Types: Cigarettes Last attempt to quit: 07/14/2018 Years since quittin.1 ??? Smokeless tobacco: Never Used Substance Use Topics ??? Alcohol use: No Frequency: Never History of Present Illness: Allergies: Clindamycin; Gabapentin; and Penicillins Immunizations: Most Recent Immunizations Administered Date(s) Administered ??? Pneumococcal Polyvalent 23 09/07/2011 ??? Td, adult 10/30/1996 ??? Tdap Vaccine 05/31/2016 Current Meds: Outpatient Medications Marked as Taking for the 09/01/18 encounter (Office Visit) with Karen, Kiel Clark MD Medication Sig Dispense Refill ??? metoprolol tartrate (LOPRESSOR) 25 mg Tablet Take 25 mg by mouth 2 times daily. Continuous Infusions: PRN Meds: ROS: A 14 point review of systems was reviewed with the patient with the following pertinent findings: Back pain. Radiating pain in his left leg. Numbness in his feet. (Pre-existing his back pain). Fatigue. Occasional lower extremity swelling. All other systems reviewed are negative. Physical Exam: Wt & BMI By Encounter Date Office Visit from 09/01/2018 in Solid Organ Transplant at [place] Office Visit from 08/11/2018 in Vascular Surgery at [place] Weight 91.7 kg (202 lb 3.2 oz) 1 09/01/2018 0859 90.7 kg (200 lb) [reported] 1 08/11/2018 1133 BMI No data 28.69 1 08/11/2018 1133 General: comfortable. In no apparent distress. Eyes: EOMI. Without scleral icterus. Mouth: non-carious teeth. Neck: supple. No thyromegaly. No lymphadenopathy in neck or supraclavicular fossa. Lungs: Breathing comfortably Heart: regular rate nd rhythm Abdomen: Soft. Some subcutaneous fat. Paramedian lower midline incision on the right. Benign. Vascular: femoral palpable, Pedal palpable, Radial palpable Lower extremity: with trace edema. Strength: greater than 5/5 and symmetrical Gait: unremarkable. Labs: Lab Results Component Value Date CREATININE 3.32 (H) 08/10/2018 K 4.3 08/10/2018 GLUCOSE 137 08/10/2018 HCT 26.3 (L) 08/10/2018 WBC 13.4 (H) 08/10/2018 ] Assessment: Mr. Gerson Bruner is a 52 y.o. male with advanced chronic kidney disease related to diabetes. Thisis apparently diabetes type 2 as he is on some oral hypoglycemic medicines. He does have some of the microvascular complications from his diabetes including (presumably) diabetic nephropathy. He is not yet end-stage and continues to work (although he is currently off due to his back pain). He does not yet have dialysis access. He appears to be a very good candidate for kidney transplantation. I spent quite some time with the patient discussing the risks benefits and alternatives to renal transplantation. I specifically addressed surgical risks as well as the general risks of immunosuppression. We talked about delayed graft function, and how graft survival is related to his overall health and adherence as well as the health of the donor. We also discussed different types of donors and the advantages of living donors. All of his questions have been answered. Thank you for sending us this patient to return for putting your lore in the [facility] transplant center. We will be discussing his case in our multidisciplinary kidney transplant evaluation committee where I will recommend we continue his evaluation. It is my hope we can get him listed quickly since he does not yet have any dialysis waiting time. He tells me he does have potential living donors, and I have asked him to remind them to call us. Please do not hesitate to contact me if you have any questions. The number rings directly to my office. Sincerely, Kiel Agustin MD MS, FACS Chief of Solid Organ Transplant [facility] documented in this encounter Plan of Treatment Not on file documented as of this encounter Visit Diagnoses Diagnosis ESRD (end stage renal disease) End stage renal disease Pre-transplant evaluation for kidney transplant Other specified pre-operative examination documented in this encounter Care Teams Spray Unit Feeder Relationship Specialty Start Date End Date Adeola Villegas APRN PCP - General Family Medicine 01/13/17 02/05/19 documented as of this encounter
--- OUTSIDE RECORDS SUMMARY | 2024-12-05 12:42 | XMS_ITS | Encounter Summary ---
Author Organization [facility] Address [facility] [place] [address] Care Team Providers Care Head Of Talent Management Name Role Phone Bakari Adeola Laura DUNN Primary Care Provider Encounter Details Date Type Department Care Team (Late st Contact Info) Description 11/14/2018 Telephone [facility] Transplant [facility] [place] [address] Debra Akins RN Social History Tobacco Use [...] Encounter - Debra Stafford RN - 11/14/2018 2:33 PM EST Spoke with Xander. He reports he had quit for 6 weeks but relapsed for 2 weeks. He quit smoking 2 weeks ago but has been using a nicotine patch. He understands he needs to not use the nicotine patch in order to pass our nicotine testing. He reports this won't be a problem and he can do this within a couple of weeks. Colonoscopy - thinks it may have been done at [facility]. He knows he had one done more recently than 2009 ABIs - will schedule in a few weeks so we can coordinate nicotine testing. He will visit with me atthis time to touch base on consent forms and HLA typing. Reports no questions. documented in this encounter Plan of Treatment Not on file documented as of this encounter Visit Diagnoses Not on filedocumented in this encounter Care Teams Head Of Talent Management Relationship Specialty Start Date End Date Adeola Villegas APRN PCP - General Family Medicine 01/13/17 02/05/19 documented as of this encounter
--- OUTSIDE RECORDS SUMMARY | 2024-12-05 12:42 | XMS_ITS | Encounter Summary ---
Author Organization [facility] Address [facility] [place] [address] Care Team Providers Care Petroleum Refinery Laborer Name Role Phone Bakari Adeola Laura DUNN Primary Care Provider Encounter Details Date Type Department Care Team (Late st Contact Info) Description 10/17/2018 Ancillary Procedure Radiology Library at [facility] [place] [address] Simón Romero MD [facility] [place] [address] Social History Tobacco Use Types Packs/Day Years [...] FILM LIBRARY STORAGE ONLY DX CHEST Routine 10/17/2018 12:00 AM EST documented in this encounter Results * Film Library- Storage Only DX Chest (10/17/2018 12:00 AM EST) Narrative MADDY - 03/06/2019 8:43 PM EDT This exam is auto-finalizing. It's purpose is for storage only. Simón Romero MD IMG FILM LIBRARY ORD ERABLES [facility] [place], [place] documented in this encounter Visit Diagnoses Not on filedocumented in this encounter Care Teams Petroleum Refinery Laborer Relationship Specialty Start Date End Date Adeola Villegas APRN PCP - General Family Medicine 01/13/17 02/05/19 documented as of this encounter
--- OUTSIDE RECORDS SUMMARY | 2024-12-05 12:42 | XMS_ITS | Encounter Summary ---
Author Organization [facility] Address [facility] [place] [address] Care Team Providers Care Salesperson Stereo Equipment Name Role Phone BakariAdeola Laura DUNN Primary Care Provider [phone] Reason for Visit * Reason Comments Chronic Kidney Disease Encounter Details Date Type Department Care Team (Latest Contact Info) Description 10/24/2018 2:00 PM EST Office Visit [place] [address] Agustin Espinosa MD [facility] [place] [address] B, Nurse Clinician None Sukumar Khan MD CKD (chronic kidney disease) stage 4, GFR 15-29 ml/min; Anemia of chronic renal failure, stage 4 (severe); Cigarette smoker; Essential hypertension; Proteinuria, unspecified type; Secondary hyperparathyroidism [...] Sign Reading Time Taken Comments Blood Pressure 130/74 10/24/2018 2:03 PM EST Pulse 65 10/24/2018 2:03 PM EST Temperature - - Respiratory Rate - - Oxygen Saturation - - Inhaled Oxygen Concentration - - Weight 93.9 kg (207 lb) 10/24/2018 2:03 PM EST Height - - Body Mass Index 29.7 10/24/2018 10:22 AM EST documented in this encounter Patient Instructions * Patient Instructions* Marichuy So RN - 10/24/2018 2:00 PM EST You have quite a bit of swelling. We would like to increase your Furosemide (Lasix) to 80 mg twice daily. We need you to decrease your salt intake. Weigh yourself every morning. Our goal is to decrease your weight by 10 pounds. We will call you in about 10 days to check on your weights and blood pressures. Call if you feel differently (consistent symptoms of nausea, vomiting, little appeal for food, itching, change in sleep patterns, worsening energy levels, shortness of breath). These are some of the signs of worsening kidney function. We will see you sooner if you are not feeling well. Please call. Marichuy DOYLE-hardwood floor sander Kidney Disease Nurse Specialist at [facility] Nephrology. documented in this encounter Progress Notes * Sukumar Khan MD - 10/24/2018 2:00 PM EST [facility] [address] [place] [address] Reason for Clinic Visit: Systems Review and CKD management. Seen in clinic with: Marichuy So RN, CKD RN Specialist CKD related to: Diabetes, HTN ID: This is a 52yo male with a history of CKD G4 secondary to HTN and DM2 who returns for a routinefollow-up. Interim Hx: Patient was admitted in mid July for hyperosmolar hyperglycemic state. Patient had aleft brachiocephalic AVF created on 09/05. Patient had back surgery for disc herniation at [facility] sometime in late August. Patient was then treated for suspected PNA 2 weeks ago with Z-pack. Patient is being evaluated by our transplant team and had dobutamine stress test today. Patient reports persis tent moderate BLE edema however denies any urinary symptoms. Patient had quit smoking for about a month however restarted smoking. History obtained by RN Specialist: Xander is being seen in follow up to his June office visit. Atthat visit, his amlodipine was increased to 10 mg daily. He has been evaluated by the transplant team and is undergoing testing. He completed his Dobutamine Stress Test today, which he thinks is the last thing he has to do for transplant testing. Since then he has had back surgery at [facility] and was recently diagnosed with pneumonia. At that time, his PCP expressed concern that he appeared jaundice and was confused but he declined ED evaluation at that time. He had an AVF created on 09/05/18 which should be ready to use late Oct into Nov if needed. He continues to have issues with sciatica. He has increased swelling in his legs, hands and face. He also has sensation changes in his right arm (not on fistula side). He has decreased sensation in his legs due to nephropathy. That is impacting hisability to drive a standard shift vehicle and has difficulty getting in and out of cars. He is currently going through the process to get SSDI. Review of Systems: Sign/Symptom Comments Energy level/fatigue: Haven't had much- had to go out on short term disability Change in sleep patterns: Not sleeping that great, naps at times Nocturia: 2-3 times Appetite changes: Appetite is good - lower potassium diet Food aversions: Has spells where nothing tastes good Nausea: none Vomiting: In the morning if takes meds without food Bowels: none Edema: Legs, hands and facial swelling Shortness of breath: Getting over PNA, gets SOB w/ minimal activity Orthopnea/PND: No, 2 pillows at night Muscle Cramping: First thing in am in calves, hasn't been a problem Cold intolerance: Yes - mild Itching: no Bruising/bleeding: none Mental Status Changes: Got confused when had PNA - only lasted a day Recent Home Blood Pressure Control: Not checking regularly but has a machine Recent Home Diabetic Management: Average 140s fasting Recent Lipid Management: None Advance Directives: 07/04 -no - forms given How has your health been in the last 4 weeks? Poor, Fair, Good, Very Good, Excellent. Additional CCM Comments: Social Determinant Date/Comments Food Security/ Nutritional Education Monitoring potassium Stable Housing/ Safety Concerns Currently out of work due to back issues Community Supports/ Transportation issues/ Appointment coordination is main support person Functional Status/ Assistive devices Independent Wears hearing aide Learning Style/Considerations Engagement/Readiness to learn or change Financial/Insurance concerns Employment status Out on short term disability currently. Trying to get on SSDI Hepatitis B Status: Serum Testing Date of Testing Results Hep B sAb/Hep B sAg Vaccination Status: Yes No Hepatitis B Vaccination Given Date First Dose Second Dose Third Dose Education: AAKP Phase [...] Yes Thrill: Yes Maturation: No Temperature changes: No Sensation changes: No Pain: No Incision Appearance: Other Comments: * Vaccinations: - Influenza - Pneumococcal Conjugate (13 Valent) - Pneumococcal polyvalent - 23 - Zostavax PMH: Patient Active Problem List Diagnosis Code [...] ??? Proteinuria R80.9 ??? Elevated blood pressure [id number] ??? Essential hypertension I10 ??? CKD (chronic kidney disease) stage 4, GFR 15-29 ml/min N18.4 ??? Pre-transplant evaluation for CKD (chronic kidney disease) Z01.818 ??? Anemia D64.9 ??? Hyperglycemia R73.9 Allergies Allergen Reactions ??? Clindamycin Swelling. ??? Gabapentin swelling ??? Penicillins Unknown reaction as a child. Medications 10/24/18 1409 Medication Sig Taking? blood sugar diagnostic strips (ONETOUCH ULTRA TEST) Strip 1 each by Other route 2 times daily (before meals). Dx code 250.02 uses insulin Yes insulin detemir U-100 (LEVEMIR) Insulin Pen Inject 55 Units subcutaneously nightly. Yes lancets Misc Inject 1 each subcutaneously 2 times daily (before meals). Dx code 250.02 uses insulinYes ranitidine (ZANTAC) 150 mg Tablet Take 150 mg by mouth 2 times daily. Yes nortriptyline (PAMELOR) 25 mg Capsule Take 25 mg by mouth nightly. Yes amLODIPine (NORVASC) 10 mg Tablet Take 1 tablet by mouth daily. Yes ferrous sulfate 325 mg (65 mg iron) Tablet, Delayed Release (E.C.) Take 325 mg by mouth daily. Yes aspirin 81 mg Tablet, Delayed Release (E.C.) Take 81 mg by mouth daily. Yes pregabalin (LYRICA) 100 mg Capsule Take 100 mg by mouth 2 times daily. Yes multivitamin (THERAGRAN) Tablet Take 1 tablet by mouth daily. Yes furosemide (LASIX) 40 mg Tablet Take 1 tablet by mouth daily. Patient taking differently: Take 40 mg by mouth 2 times daily. Yes Insulin [place], Disposable, 31 X 5/16 Needle Inject 1 each subcutaneously 2 times daily (before meals). Yes metoprolol tartrate (LOPRESSOR) 25 mg Tablet Take 50 mg by mouth 2 times daily. hydrALAZINE (APRESOLINE) 25 mg Tablet Take 1 tablet by mouth 3 times daily. methocarbamol (ROBAXIN) 750 mg Tablet Take 750 mg by mouth 4 times daily. Physical Exam: Most Recent Vitals: 10/24/18 1403 BP: 130/74 Pulse: 65 Appearance - Awake and alert. NAD. Well-nourished. Skin - No exanthem or wound. HEENT - No sclera icterus. Moist oral mucosa. Chest - Lungs CTA. Heart - S1 and S2. RRR. No MRG. No JVD. Abd - Soft. Non-tender. Protuberant. Normal BS. - No flank tenderness. Ext - LUE AVF w/ good thrill/ bruit. Warm extremities. No cyanosis. 2+ BLE edema. Neuro - Normal speech. Labs Results for GERSON BONILLA ( ) as of 10/24/2018 16:59 Ref. Range 10/17/2018 00:00 10/24/2018 13:06 WBC Latest Ref Range: 4.0 - 9.5 x10(3)/mcL 6.06 (External Lab) 7.1 RBC Latest Ref Range: 4.58 - 5.54 x10(6)/mcL 3.47 (External Lab) 3.51 (L) Hemoglobin Latest Ref Range: 13.7 - 16.5 gm/dL 10.5 (External Lab) 10.5 (L) Hematocrit Latest Ref Range: 40.5 - 48.5 % 32.2 (External Lab) 31.8 (L) MCV Latest Ref Range: 82.9 - 93.1 fL 92.8 (External Lab) 90.6 MCH Latest Ref Range: 27.5 - 32.1 pg 30.3 (External Lab) 29.9 MCHC Latest Ref Range: 32.0 - 35.7 gm/dL 32.6 (External Lab) 33.0 RDWSD Latest Ref Range: 36.0 - 45.0 fL 43.6 RDWCV Latest Ref Range: 11.4 - 13.8 % 13.5 (External Lab) 13.2 Platelets Latest Ref Range: 145 - 357 x10(3)/mcL 304 (External Lab) 295 MPV Latest Ref Range: 7.6 - 12.9 fL 11 (External Lab) 11.2 Sodium Latest Ref Range: 135 - 145 mmol/L 138 (External Lab) 142 Potassium Latest Ref Range: 3.5 - 5.0 mmol/L 4.7 (External Lab) 4.7 Chloride Latest Ref Range: 98 - 107 mmol/L 103 (External Lab) 106 CO2 Latest Ref Range: 22 - 31 mmol/L 27 (External Lab) 23 Anion Gap Latest Ref Range: 5 - 15 mmol/L 8 (External Lab) 13 BUN Latest Ref Range: 10 - 20 mg/dL 42 (External Lab) 54 (H) Creatinine Latest Ref Range: 0.80 - 1.50 mg/dL 3.82 (External Lab) 4.15 (H) eGFR Latest Ref Range: >=60 mL/min/1.73 m?? 16.78 (External Lab) 16 (L) eGFR Latest Ref Range: >=60 mL/min/1.73 m?? 18 (L) Glucose Lvl Latest Ref Range: 65 - 199 mg/dL 292 (External Lab) 86 Calcium Latest Ref Range: 8.5 - 10.5 mg/dL 9.2 (External Lab) 8.6 Phosphorus Latest Ref Range: 2.5 - 4.5 mg/dL 4.4 Total Protein Unknown 6.3 (External Lab) Albumin Latest Ref Range: 3.2 - 5.2 gm/dL 2.8 (External Lab) 3.0 (L) Total Bilirubin Unknown 0.3 (External Lab) Alk Phos Unknown 128 (External Lab) AST Unknown 20 (External Lab) ALT Unknown 30 (External Lab) PTH Latest Ref Range: 15 - 65 pg/mL 154 (H) Problem/Goal/Assessment/Plan: Problem: Chronic Kidney Disease Goal: Reduce rate of progression Education for CKD Stage specific issues Results: Estimated GFR (MDRD): 16 ml/min/1.73m2 CKD Stage 4 - Potassium level - 4.7 - CO2 level - 23 - Uric Acid level - not tested Changes discussed with RN Specialist: You have quite a bit of swelling. We would like to increase your Furosemide (Lasix) to 80 mg twice daily. We need you to decrease your salt intake. Weigh yourself every morning. Our goal is to decrease your weight by 10 pounds. We will call you in about 10 daysto check on your weights and blood pressures. Call if you feel differently (consistent symptoms of nausea, vomiting, little appeal for food, itching, change in sleep patterns, worsening energy levels, shortness of breath). These are some of the signs of worsening kidney function. We will see you sooner if you are not feeling well. A/P: CKD G4 secondary to diabetic nephropathy with nephrotic syndrome. - No indication to start dialysis at this time. Left brachiocephalic AVF appears to be maturing well. - Increase PO Lasix to 80mg BID and weigh daily. Goal is to reduce weight by 5- 10 lb. Discussed low-sodium diet. - Continue to optimize BP and glycemic control. We have been unable to start ACEi/ARB due to hyperkalemic tendencies. Will consider starting low-dose next visit. - Discussed importance of smoking cessation at length. Patient will not be able to undergo renal transplant if he continues to smoke. - Avoid NSAIDs and other nephrotoxins. - Renally dose medications. Problem: Management of Anemia related to Chronic Kidney Disease (CKD) Goal:P Hgb 9.5-10.9 g/dl Ferritin>100ng/ml TSAT>20% Today's Results Hgb - 10.5 Ferritin - 83 on 04/07/18 TSAT - 24 on 04/07/18 Receiving erythropoetic stimulating agent? No Iron Supplement; Date : Patient on oral iron Changes discussed with RN Specialist: Repeat iron studies at next visit A/P: Hb at goal. Iron replete as of 03/2018. No indication for GEORGE at this time. Continue PO Ferroussulfate 325mg daily. Problem: Hypertension Goal: Urine alb:cr ratio <30mg/g - 140/90, Urine alb:cr ratio > 30mg/g - 130/80 Sodium intake < 2 Gm per day. Results: BP today - 130/74 Changes discussed with RN Specialist: Lasix increased to 80 mg twice daily A/P: BP at goal. Continue Amlodipine 10mg daily, Lopressor 50mg BID, and Hydralazine 25mg TID. Increase Lasix as above. Encouraged home BP monitoring. DASH diet discussed. Problem: Proteinuria Goal: Pro:Cr ratio <0.2mg/mg Today's results: Pro:Cr ratio 5.5 Changes discussed with RN Specialist: A/P: Nephrotic-range proteinuria. Patient has not been on ACEi/ARB due to hyperkalemic tendencies. Will start ACEi if potassium remains WNL next visit. Avoid K+ rich foods. Problem: Bone Disease Goal: Stage 3 PTH: 35-70 pg/ml Phos 2.7-4.6 Ca 8.5-10.5mg/dl Stage 4 PTH: 70-110 pg/ml Phos 2.7-4.6 Ca 8.5-10.5mg/dl Stage 5 PTH: 150-300 pg/ml Phos 3.5-5.5 Ca 8.5-10.5mg/dl Results: PTH today - 154 (pt not taking calcitriol) Phos today - 4.4 (pt not taking binders) Calcium today - 8.6 Changes discussed with RN Specialist: None A/P: Ca++ and Phos WNL. PTH at goal. No indication for binders. Will continue to monitor. Problem: Nutrition Goal: Albumin > 4.0gm/dl BMI 20-25 kg/m2 Results: Albumin today - 3.0 Changes discussed with RN Specialist: Encouraged increased protein intake A/P: Likely part of nephrotic syndrome. Will consider ACEi/ARB next visit. Continue healthy heart diet with good protein intake. Problem: Diabetes Goal: HA1C ~ 7.0% Results: HA1C Random Glucose - 86 (fasting) Changes discussed with RN Specialist: None A/P: Good fasting glucose today. Continue current regimen. Management per PCP. Referral: None Summary: CKD G4 with nephrotic syndrome secondary to diabetic nephropathy. Patient has a left brachiocephalic AVF that is not yet mature. No indication to start dialysis currently. Will attempt to improve his volume status by increasing Lasix and continuing low-Na+ diet. Smoking cessation is of utmost importance. Return to CKD clinic: 3-4 months * Agustin Espinosa MD - 10/24/2018 2:00 PM ESTPatient was seen and examined in chronic kidney disease clinic with the renal fellow. His main complaint today is persistent sciatic pain in his left lower leg following his back surgery. Additionally he is waking up with swelling in his face and has significant swelling in his lower extremities. Some of the lower extremity swelling may be related to his dose of amlodipine but is currently hyperte nsive. We will go ahead and increase his Lasix to 80 mg twice a day with the goal of a 10 pound weight loss. Once we have achieved this we may be able to back down on the amlodipine dose. Additionally he has had a left brachiocephalic fistula created is developing nicely. His uremic symptoms are moderate at the present time and he may only need dialysis in the next 3-6 months. He continues his workup towards transplant and has completed most of the requirements. He i s working on finding a living donor. We will plan on seeing him back in 4 months documented in this encounter Plan of Treatment Not on file documented as of this encounter Procedures Procedure Name Priority Date/Time Associated Diagnosis Comments PROTEIN/CREATININE RATIO, URINE Routine 10/24/2018 3:00 PM EST CKD (chronic kidney disease) stage 4, GFR 15-29 ml/min documented in this encounter Results * (ABNORMAL) Protein/Creatinine Ratio, urine (10/24/2018 3:00 PM EST) Creatinine, Urine 86 mg/dL [facility] Protein, Urine 475(H) 0 - 12 mg/dL [facility] Protein / Creatinine Ratio, Urine 5.5 ratio [facility] Urine specimen (specimen) 10/24/2018 3:00 PM EST 10/24/2018 4:28 PM EST Narrative Resulting Agency Comment Spec In Lab Agustin Espinosa MD URINE ORDERABLES [facility] [place] [address] documented in this encounter Visit Diagnoses Diagnosis CKD (chronic kidney disease) stage 4, GFR 15-29 ml/min Chronic kidney disease, Stage IV (severe) Anemia of chronic renal failure, stage 4 (severe) Cigarette smoker Tobacco use disorder Essential hypertension Unspecified essential hypertension Proteinuria, unspecified type Secondary hyperparathyroidism Secondary hyperparathyroidism (of renal origin) documented in this encounter Care Teams Salesperson Stereo Equipment Relationship Specialty Start Date End Date Adeola Villegas APRN PCP - General Family Medicine 01/13/17 02/05/19 documented as of this encounter
--- OUTSIDE RECORDS SUMMARY | 2024-12-05 12:42 | XMS_ITS | Encounter Summary ---
Author Organization [facility] [place] [address] Care Team Providers Care Dry Boss Name Role Phone Adeola Villegas APRN Primary Care Provider Reason for Referral * Diagnostic Test (Routine) - Closed Specialty Diagnoses / Procedures Referred By Nader pena Referred To Contact Transplant Diagnoses Pre-transplant evaluation for kidney transplant Procedures Echo pharm stress test (DSE) [facility] [address] [place] [phone] [facility] [address] [place] [phone] Referral ID Status Reason Start Date Expiration Date V isits Requested Visits Authorized [id number] Closed Specialty Service Requested 06/15/2018 06/15/2019 1 1 Reason for Visit * Diagnostic Test (Routine) - Closed Specialty Diagnoses / Procedures Referred By Nader pena Referred To Contact Transplant Diagnoses Pre-transplant evaluation for kidney transplant Procedures Echo pharm stress test (DSE) [facility] [address] [place] [phone] [facility] [address] [place] [phone] Referral ID Status Reason Start Date Expiration Date V isits Requested Visits Authorized [id number] Closed Specialty Service Requested 06/15/2018 06/15/2019 1 1 Encounter Details Date Type Department Care Team (Latest Contact Info) Description 10/24/2018 8:55 AM EST - 10/24/2018 11:59 PM EST Hospital Encounter Non-Invasive Cardiology Lab [facility] [place] [place] [address] Kiel Paulson MD [facility] [place] [address] Pre-transplant evaluation for kidney transplant Discharge Disposition: [...] Sign Reading Time Taken Comments Blood Pressure 167/73 10/24/2018 10:22 AM EST Pulse 98 10/24/2018 10:22 AM EST Temperature - - Respiratory Rate 16 10/24/2018 10:22 AM EST Oxygen Saturation 98% 10/24/2018 10:22 AM EST Inhaled Oxygen Concentration - - Weight 95.3 kg (210 lb) 10/24/2018 10:22 AM EST Height 177.8 cm (5' 10) 10/24/2018 10:22 AM EST Body Mass Index 30.13 10/24/2018 10:22 AM EST documented in this encounter Medications at Time of Discharge Medication Sig Dispensed Refills Start Date End Date furosemide (LASIX) 80 mg Tablet Take 1 tablet by mouth 2 times daily. 180 tablet 3 10/24/2018 02/25/2024 metoprolol tartrate (LOPRESSOR) 25 mg Tablet Take 50 mg by mouth 2 times daily. 11/04/2018 blood sugar diagnostic strips (Tailored RepublicUCH ULTRA TEST) Strip 1 each by Other [...] mouth daily. 02/06/2019 pregabalin (LYRICA) 100 mg CapsuleIndications:C KD (chronic kidney disease) stage 3, GFR 30-59 ml/min,Other specified diabetes mellitus with unspecified complications,Essent ial hypertension with goal blood pressure less than 130/80,Hyperkalemia Take 100 mg by mouth 2 times daily. 03/14/2024 multivitamin (THERAGRAN) Tablet Take 1 tablet by mouth daily. 02/25/2024 Insulin Ryegate, Disposable, 31 X 5/16 Needle Inject 1 each subcutaneously 2 times daily (before meals). 100 each 11 07/19/2014 02/25/2024 documented as of this encounter Plan of Treatment Not on file documented as of this encounter Procedures Procedure Name Priority Date/Time Associated Diagnosis Comments STRESS ECHO W CONTRAST W LMTD SPEC DOPP COLOR DOPP Routine 10/24/2018 11:39 AM EST Pre-transplant evaluation for kidney transplant documented in this encounter Results * STRESS ECHO W CONTRAST W LMTD SPEC DOPP COLOR DOPP (10/24/2018 11:39 AM EST) EF 65 HEARTRiidr SYSTEM Anatomical Region Laterality Modality Other 10/24/2018 Narrative 10/24/2018 3:44 PM EST Procedure: ?Stress Echocardiogram Patient: ?CHAD Pena ?(Age): 1965(52y) Med Rec#: ? [id number] ?Sex: ?M ? Site Loc: ? [facility] ?Ht / Wt: ??177.8(cm)/95.3( Pt. Loc: ?Echo Lab ?BSA: ?2.13 Study Date: ?? 10/24/2018 ?Pt. Type: Tape: ? Referring: Kiel Paulson Reading: Jefe Arellano ([id number]) Golf Course Mechanic: Jeyson Edmondson Nurse: Greta Espitia Diagnosis: *Encounter for other preprocedural examination (Z01.818) Stage ? BP ?HR ? Rest ?167/73 ?71 ? Low dose ?190/76 ?82 ? Peak ?189/87 ?143 ? Recovery ?152/83 ?83 ? SUMMARY: 1. BASELINE: ?? There is normal global left ventricular systolic function. ??Ejection fraction is estimated to be 65%. There are no left ventricular segmental wall motion abnormalities. Right ventricular global systolic function is probably normal. Mild concentric left ventricular hypertrophy is observed. The left atrium is moderately dilated.(48.4ml/m2)/ The right atrium is mildly dilated. There is mild dilatation of the aortic root. No significant valvular disease. ??EKG: NSR with no ST-T changes 2. STRESS: ?? The peak dose of Dobutamine infused was 40 ug/kg/min. Peak HR= 139 bpm (82% MPHR), and max BP= 201/107 mmHg for a DP= 27.9K. ??No reported symptoms. There were no ST changes. ??There were rare ventricular premature beats. All hart increased in contractile reserve, with no segmental wall motion abnormalities. LVEF increased from 65% to 85% with hyperdynamic motion. ?? 3. IMPRESSION: Non diagnostic DSE secondary to not quite attaining target HR (patient took an evening b-jailyn dose). ??However, no obvious ischemia at the the level of stress attained (82% MPHR) but high workload (DP=27.9K). ??Baseline hypertension with hypertenisve BP response was seen. ?? Findings Rest: Study Quality: ? Adequate Left Ventricle: ? The left ventricular chamber size is normal. ?Mild concentric left ventricular hypertrophy is observed. ?There is no evidence of LVOT obstruction. ?There is normal global left ventricular systolic function. ??Ejection fraction is estimated to be 65%. ?There are no left ventricular segmental wall motion abnormalities. ?Left ventricular diastolic function is probably normal. Left Atrium: ? The left atrium is moderately dilated.(48.4ml/m2) Right Ventricle: ? The right ventricle is normal in size. ?Right ventricular global systolic function is probably normal. ?Pulmonary artery hypertension could not be assessed due to inadequate tricuspid regurgitation jet. Right Atrium: ? The right atrium is mildly dilated. Aortic Valve: ? The aortic valve is tricuspid. ?Systolic excursion of the aortic valve is normal. ?There is no evidence of aortic valve stenosis. ?There is no evidence of aortic regurgitation. Mitral Valve: ? The mitral valve is probably normal. ?There is trace mitral regurgitation present. Tricuspid Valve: ? The tricuspid valve is probably normal. ?There is no evidence of tricuspid valve regurgitation present. Pericardium: ? The pericardium appears normal and there is no evidence of a pericardial effusion. Aorta: ? There is mild dilatation of the aortic root. ?The ascending aorta is normal in size. Stress: ? EKG: normal sinus rhythm. ?EKG: Premature ventricular contractions noted. ?The patient is on an anti-hypertensive; ??( ) hours since taken. ?The patient is taking a beta jailyn. Misc: ? The patient is alert and oriented x3. ?The procedure was explained to the patient and the patient understands the procedure, ?A 22 gauge heplock was placed. ?An antecubital IV was placed. ?An IV was placed in the patient's right arm. ?The IV site is dry and intact with no hematoma. ?Definity contrast (one 1.5 ml vial)was used to enhance endocardial definition. Excess contrast was discarded. ?Stress echo, limited spectral Doppler, color Doppler and ECG interpretation performed. Findings Low dose: Stress: ? EKG: normal sinus rhythm. ?EKG: Premature ventricular contractions noted. Findings Peak: Predicted Values:The patient achieved a maximum heart rate of 143 which is 85% of the maximum predicted heart rate (169 beats/min). ??The target heart rate was achieved. Left Ventricle: ? Severe LVOT obstruction is present.153mmhg. ?Global left ventricular systolic function appears hyperdynamic. ?There are no left ventricular segmental wall motion abnormalities. Stress: ? The peak dose of Dobutamine infused was 40 ug/kg/min. ?The patient was administered 1.0 mg of Atropine. ?The patient was administered 5 mg of Metoprolol during recovery. ?The patient did not express feelings of chest discomfort. ?There were rare ventricular premature beats. ?EKG: Premature ventricular contractions noted. ?EKG: sinus tachycardia. ?The patient's oxygen saturation was 95% on RA Findings Recovery: Left Ventricle: ? There are no left ventricular segmental wall motion abnormalities. Stress: ? EKG: normal sinus rhythm. ?EKG: Premature ventricular contractions noted. Misc: ? The heplock was discontinued. ?The IV site is dry and intact with no hematoma. ?Normal saline was given. 250cc Chambers 2D ?Value ?Units (Range) ? RVIDd ??Base ? 4 ?cm ? IVSd (2D) ? 1.3 ?cm ? LVPWd (2D) ?1.2 ?cm ? IVS:LVPW ratio (2D) 1.1 ?ratio ? RWT (2D) ?0.5 ?ratio ? RWT PW (2D) ? 0.4 ?ratio ? LVIDd (2D) ?5.4 ?cm ? LVIDs (2D) ?3.4 ?cm ? LVIDd (2D) index ?2.5 ?cm/m2 ? LVIDs (2D) index ?1.6 ?cm/m2 ? LV FS (2D) ?37 ? % ? EF Teichholz (2D) ?? 67 ? % ? Ao root diameter (2D3.9 ?cm (2.1 - 3.6) ? Ascending Ao ?3.3 ?cm (2 - 3.5) ? Volumes/Mass ?Value ?Units (Range) ? LA Area 4 CH ?26 ? cm2 (<21) ? RA AREA 4CH ? 23 ? cm2 ? LA ESV BP (MOD) inde48.4 ? ml/m2 ? LV mass (2D) ?271.3 ?g ? LV mass (2D) index ??127.4 ?g/m2 ? Diastolic/Systolic Function ?Value ?Units (Range) ? MV E-wave Vmax ?1.4 ?m/sec ? MV deceleration [id number] ?msec ? MV A-wave Vmax ?1 ?m/sec ? MV E:A ratio ?1.4 ?ratio ? P. vein S-wave Vmax 0.5 ?m/sec ? LV septal e' Vmax ?? 0.1 ?m/sec ? LV lateral e' Vmax ??0.2 ?m/sec ? LV E:e' septal ratio15.4 ? ratio ? LV E:e' lateral rati8.2 ?ratio ? Tricuspid Valve ?Value ?Units (Range) ? TAPSE ? 2.4 ?cm ? RV lateral s' Vmax ??0.2 ?m/sec ? Wall Motion: Segment Name ?Rest ? Peak ? Base-Anteroseptal ?? Normal ? Normal ? Base-Anterior ? Normal ? Normal ? Base-Anterolateral ??Normal ? Normal ? Base-Posterolateral Normal ? Normal ? Base-Inferior ? Normal ? Normal ? Base-Inferoseptal ?? Normal ? Normal ? Mid-Anteroseptal ?Normal ? Normal ? Mid-Anterior ?Normal ? Normal ? Mid-Anterolateral ?? Normal ? Normal ? Mid-Posterolateral ??Normal ? Normal ? Mid-Inferior ?Normal ? Normal ? Mid-Inferoseptal ?Normal ? Normal ? [place]-Septal ? Normal ? Normal ? [place]-Anterior ? Normal ? Normal ? [place]-Lateral ?Normal ? Normal ? [place]-Inferior ? Normal ? Normal ? [place]-Tip ?Normal ? Normal ? This report has been electronically signed by: Jefe Arellano MD ? 10/24/2018 15:44:20 Images reviewed and interpretation verified [facility] Cardiac Ultrasound Laboratory Procedure Note Jefe Arellano MD - 10/24/2018 Procedure: Stress Echocardiogram Patient: CHAD LEZAMA(Age): 1965(52y) Med Rec#: [id number] Sex: M Site Loc: [facility] Ht / Wt: 177.8(cm)/95.3( Pt. Loc: Echo Lab BSA: 2.13 Study Date: 10/24/2018 Pt. Type: Tape: Referring: Kiel Paulson Reading: Jefe Arellano ([id number]) Golf Course Mechanic: Jeyson Edmondson Nurse: Greta Espitia Diagnosis: *Encounter for other preprocedural examination (Z01.818) Stage BP HR Rest 167/73 71 Low dose 190/76 82 Peak 189/87 143 Recovery 152/83 83 SUMMARY: 1. BASELINE: There is normal global left ventricular systolic function. Ejection fraction is estimated to be 65%. There are no left ventricular segmental wall motion abnormalities. Right ventricular global systolic function is probably normal. Mild concentric left ventricular hypertrophy is observed. The left atrium is moderately dilated.(48.4ml/m2)/ The right atrium is mildly dilated. There is mild dilatation of the aortic root. No significant valvular disease. EKG: NSR with no ST-T changes 2. STRESS: The peak dose of Dobutamine infused was 40 ug/kg/min. Peak HR= 139 bpm (82% MPHR), and max BP= 201/107 mmHg for a DP= 27.9K. No reported symptoms. There were no ST changes. There were rare ventricular premature beats. All hart increased in contractile reserve, with no segmental wall motion abnormalities. LVEF increased from 65% to 85% with hyperdynamic motion. 3. IMPRESSION: Non diagnostic DSE secondary to not quite attaining target HR (patient took an evening b-jailyn dose). However, no obvious ischemia at the the level of stress attained (82% MPHR) but high workload (DP=27.9K). Baseline hypertension with hypertenisve BP response was seen. Findings Rest: Study Quality: Adequate Left Ventricle: The left ventricular chamber size is normal. Mild concentric left ventricular hypertrophy is observed. There is no evidence of LVOT obstruction. There is normal global left ventricular systolic function. Ejection fraction is estimated to be 65%. There are no left ventricular segmental wall motion abnormalities. Left ventricular diastolic function is probably normal. Left Atrium: The left atrium is moderately dilated.(48.4ml/m2) Right Ventricle: The right ventricle is normal in size. Right ventricular global systolic function is probably normal. Pulmonary artery hypertension could not be assessed due to inadequate tricuspid regurgitation jet. Right Atrium: The right atrium is mildly dilated. Aortic Valve: The aortic valve is tricuspid. Systolic excursion of the aortic valve is normal. There is no evidence of aortic valve stenosis. There is no evidence of aortic regurgitation. Mitral Valve: The mitral valve is probably normal. There is trace mitral regurgitation present. Tricuspid Valve: The tricuspid valve is probably normal. There is no evidence of tricuspid valve regurgitation present. Pericardium: The pericardium appears normal and there is no evidence of a pericardial effusion. Aorta: There is mild dilatation of the aortic root. The ascending aorta is normal in size. Stress: EKG: normal sinus rhythm. EKG: Premature ventricular contractions noted. The patient is on an anti-hypertensive; ( ) hours since taken. The patient is taking a beta jailyn. Misc: The patient is alert and oriented x3. The procedure was explained to the patient and the patient understands the procedure, A 22 gauge heplock was placed. An antecubital IV was placed. An IV was placed in the patient's right arm. The IV site is dry and intact with no hematoma. Definity contrast (one 1.5 ml vial)was used to enhance endocardial definition. Excess contrast was discarded. Stress echo, limited spectral Doppler, color Doppler and ECG interpretation performed. Findings Low dose: Stress: EKG: normal sinus rhythm. EKG: Premature ventricular contractions noted. Findings Peak: Predicted Values:The patient achieved a maximum heart rate of 143 which is 85% of the maximum predicted heart rate (169 beats/min). The target heart rate was achieved. Left Ventricle: Severe LVOT obstruction is present.153mmhg. Global left ventricular systolic function appears hyperdynamic. There are no left ventricular segmental wall motion abnormalities. Stress: The peak dose of Dobutamine infused was 40 ug/kg/min. The patient was administered 1.0 mg of Atropine. The patient was administered 5 mg of Metoprolol during recovery. The patient did not express feelings of chest discomfort. There were rare ventricular premature beats. EKG: Premature ventricular contractions noted. EKG: sinus tachycardia. The patient's oxygen saturation was 95% on RA Findings Recovery: Left Ventricle: There are no left ventricular segmental wall motion abnormalities. Stress: EKG: normal sinus rhythm. EKG: Premature ventricular contractions noted. Misc: The heplock was discontinued. The IV site is dry and intact with no hematoma. Normal saline was given. 250cc Chambers 2D Value Units (Range) RVIDd Base 4 cm IVSd (2D) 1.3 cm LVPWd (2D) 1.2 cm IVS:LVPW ratio (2D) 1.1 ratio RWT (2D) 0.5 ratio RWT PW (2D) 0.4 ratio LVIDd (2D) 5.4 cm LVIDs (2D) 3.4 cm LVIDd (2D) index 2.5 cm/m2 LVIDs (2D) index 1.6 cm/m2 LV FS (2D) 37 % EF Teichholz (2D) 67 % Ao root diameter (2D3.9 cm (2.1 - 3.6) Ascending Ao 3.3 cm (2 - 3.5) Volumes/Mass Value Units (Range) LA Area 4 CH 26 cm2 (<21) RA AREA 4CH 23 cm2 LA ESV BP (MOD) inde48.4 ml/m2 LV mass (2D) 271.3 g LV mass (2D) index 127.4 g/m2 Diastolic/Systolic Function Value Units (Range) MV E-wave Vmax 1.4 m/sec MV deceleration [id number] msec MV A-wave Vmax 1 m/sec MV E:A ratio 1.4 [address] P. vein S-wave Vmax 0.5 m/sec LV septal e' Vmax 0.1 m/sec LV lateral e' Vmax 0.2 m/sec LV E:e' septal ratio15.4 ratio LV E:e' lateral rati8.2 ratio Tricuspid Valve Value Units (Range) TAPSE 2.4 cm RV lateral s' Vmax 0.2 m/sec Wall Motion: Segment Name Rest Peak Base-Anteroseptal Normal Normal Base-Anterior Normal Normal Base-Anterolateral Normal Normal Base-Posterolateral Normal Normal Base-Inferior Normal Normal Base-Inferoseptal Normal Normal Mid-Anteroseptal Normal Normal Mid-Anterior Normal Normal Mid-Anterolateral Normal Normal Mid-Posterolateral Normal Normal Mid-Inferior Normal Normal Mid-Inferoseptal Normal Normal [place]-Septal Normal Normal [place]-Anterior Normal Normal [place]-Lateral Normal Normal [place]-Inferior Normal Normal [place]-Tip Normal Normal This report has been electronically signed by: Jefe Arellano MD 10/24/2018 15:44:20 Images reviewed and interpretation verified [facility] Cardiac Ultrasound Laboratory Kiel Paulson MD ECHO ORDERABLES documented in this encounter Visit Diagnoses Diagnosis Pre-transplant evaluation for kidney transplant Other specified pre-operative examination documented in this encounter Administered Medications Inactive Administered Medications - up to 3 most recent administrations Medication Order MAR Action Action Date Dose Rate Site atropine injection 1 mg 1 mg, Intravenous, ONCE, 1 dose, On Wed10/24/18 at 1030, Echo Lab (Intra-Procedure), Routine Given 10/24/2018 10:15 AM EST 1 mg DOBUTamine (2000 mcg/mL) 100 mg in Dextrose 5% 50 mL infusion 40 mcg/kg/min ? 95.3 kg (114.36 mL/hr, rounded to 114.4 mL/hr), Intravenous, CONTINUOUS, Starting on Wed10/24/18 at 1015, Until Wed10/24/18 at 1118, Administer over 14.42 Minutes, Warning Vesicant/Irritant Medication , Echo Lab (Intra-Procedure) New Bag 10/24/2018 10:05 AM EST 40 mcg/kg/min 114.4 mL/hr meTOPROLOL (LOPRESSOR) injection 5 mg 5 mg, Intravenous, ONCE, 1 dose, On Wed10/24/18 at 1130, Echo Lab (Intra-Procedure), Routine Given 10/24/2018 10:20 AM EST 5 mg perflutren lipid microspheres (DEFINITY) injection 1.5 mL 1.5 mL, Intravenous, ONCE PRN, 1 dose, Starting on Wed10/24/18 at 1139, Until Wed10/24/18 at 1140, prn, Routine Given 10/24/2018 11:40 AM EST 1.5 mLs documented in this encounter Care Teams Dry Boss Relationship Specialty Start Date End Date Adeola Villegas APRN PCP - General Family Medicine 01/13/17 02/05/19 documented as of this encounter
--- OUTSIDE RECORDS SUMMARY | 2024-12-05 12:42 | XMS_ITS | Encounter Summary ---
Author Organization [facility] [place] [address] Care Team Providers Care Landing Worker Name Role Phone Bakari Adeola Laura DUNN Primary Care Provider [phone] Encounter Details Date Type Department Care Team (Late st Contact Info) Description 09/12/2018 External Results Laboratory at [facility] [address] [place] [address] Katrina Workman MD Social History Tobacco Use [...] Procedure Name Priority Date/Time Associated Diagnosis Comments APD LAB RESULT Routine 09/12/2018 8:38 AM EST APD LAB RESULT Routine 09/12/2018 6:30 AM EST APD LAB RESULT Routine 09/12/2018 6:27 AM EST documented in this encounter Results * (ABNORMAL) APD Lab Result (09/12/2018 8:38 AM EST) APD LAB RESULT GLUCOSE POINT OF CARE(EXTERNA L/ABN) [facility] 09/12/2018 8:38 AM EST 09/12/2018 8:46 AM EST Narrative [facility] - 09/12/2018 8:46 AM EST Component ? Value ?RefRange ??Units ? Status Abn? GLUCOSE POC ? 142 ?74-106 ?mg/dL ? F ?H Katrina Workman MD POINT OF CARE TEST ORDERABLES Performing Organization Address [facility]/ZIP Co de Phone Number [facility] [address] [place] [address] * (ABNORMAL) APD Lab Result (09/12/2018 6:30 AM EST) APD LAB RESULT POTASSIUM( External Lab) [facility] 09/12/2018 6:30 AM EST 09/12/2018 6:30 AM EST Narrative [facility] - 09/12/2018 6:51 AM EST Component ? Value ?RefRange ??Units ? Status Abn? POTASSIUM ? 4.3 ?3.5-5.1 ?? mmol/L ?F ? Katrina Workman MD POINT OF CARE TEST ORDERABLES Performing Organization Address [facility]/ZIP Co de Phone Number [facility] [address] [place] [address] * (ABNORMAL) APD Lab Result (09/12/2018 6:27 AM EST) APD LAB RESULT GLUCOSE POINT OF CARE(EXTERNA L/ABN) [facility] 09/12/2018 6:27 AM EST 09/12/2018 6:43 AM EST Narrative [facility] - 09/12/2018 6:43 AM EST Component ? Value ?RefRange ??Units ? Status Abn? GLUCOSE POC ? 125 ?74-106 ?mg/dL ? F ?H Katrina Workman MD POINT OF CARE TEST ORDERABLES Performing Organization Address City/State/[facility] Co de Phone Number [facility] [address] [place] [address] documented in this encounter Visit Diagnoses Not on filedocumented in this encounter Care Teams Landing Worker Relationship Specialty Start Date End Date Adeola Villegas, MONA PCP - General Family Medicine 01/13/17 02/05/19 documented as of this encounter
--- OUTSIDE RECORDS SUMMARY | 2024-12-05 12:42 | XMS_ITS | Encounter Summary ---
Author Organization [facility]ending [facility] [place] [address] Care Team Providers Care Farm Contractor Name Role Phone Adeola Villegas APRN Primary Care Provider Reason for Visit * Reason Comments Arteriovenous Fistula s/p L AVF Encounter Details Date Type Department Care Team (Late st Contact Info) Description 09/29/2018 9:30 AM EST Office [place] [id number] Argenis Horan APRN A-V fistula Social History Tobacco Use Types Packs/Day Years [...] Sign Reading Time Taken Comments Blood Pressure 157/75 09/29/2018 9:24 AM EST Pulse 70 09/29/2018 9:24 AM EST Temperature - - Respiratory Rate 18 09/29/2018 9:24 AM EST Oxygen Saturation - - Inhaled Oxygen Concentration - - Weight 92.1 kg (203 lb) 09/29/2018 9:24 AM EST Height 177.8 cm (5' 10) 09/29/2018 9:24 AM EST Body Mass Index 29.13 09/29/2018 9:24 AM EST documented in this encounter Progress Notes * Argenis Horan APRN - 09/29/2018 9:30 AM EST 09/05/18 Left brachiocephalic AVF creation (Mary Ann) Mr. Bruner is not currently on hemodialysis and is uncertain regarding the timing for initiation of dialysis Denies problem with left arm incision, fever, chills, change in temp or color of left hand, pain, SOB, chest pain, edema. C/o occ NT of hand. Left upper arm with palpable thrill audible bruit. Incision well healed. Hand cool pink +2 radial pulse. No edema. AVF duplex Left ? PSV (cms) ??EDV (cm/s) ??Flow (ml/min) ??Mia ??AP cm ?? Inflow Artery ?270 ?76 ?868 ? 0.5 ?? Anastomosis ?358 ? 214 ?948 ? 0.4 ?? Proximal AVF ? 271 ? 143 ?0.7 ?? Mid AVF ?237 ? 120 ?0.6 ?? Distal AVF ? 205 ? 126 ?0.7 ?? Interpretation: LEFT: Patent brachiocephalic arteriovenous fistula with approximate volume flows between 868-948 mL/min. There is a hematoma superficial to the AVF anastomosis at the level of the antecubital fossa. Assessment/Plan: 52 yo male in yet on HD. S/p 09/05/18 Left brachiocephalic AVF creation (Mary Ann). Well healed good bruit. AVF patent with good flow volume. May use fistula for HD after 8-12 weeksfrom surgery placement. RTC PRN documented in this encounter Plan of Treatment Not on file documented as of this encounter Visit Diagnoses Diagnosis A-V fistula Arteriovenous fistula, acquired documented in this encounter Care Teams Farm Contractor Relationship Specialty Start Date End Date Adeola Villegas APRN PCP - General Family Medicine 01/13/17 02/05/19 documented as of this encounter
--- OUTSIDE RECORDS SUMMARY | 2024-12-05 12:42 | XMS_ITS | Encounter Summary ---
Author Organization [facility] [place] [address] Care Team Providers Care Scientific Illustrator Name Role Phone Adeola Villegas APRN Primary Care Provider Reason for Visit * Auth/Cert Specialty Diagnoses / Procedures Referred By Nader gardiner Referred To Contact Diagnoses CKD STAGE IV Procedures PRO ANASTOMOSIS, AV, ANY SITE AV FISTULA CREATION, DIRECT HEMODIALYSIS, ANY SITE, EG GABRIEL FISTULA UPPER EXTREMITY (WRVU 11.9) Referral ID Status Reason Start Date Expiration Date Visits Re quested Visits Authorized [id number] 1 1 Encounter Details Date Type Department Care Team (Latest Contact Info) Description 09/05/2018 1:06 PM EST - 09/05/2018 7:45 PM EST Hospital Encounter [place] [id number] Manpreet Reese MD [address] [place] [id number] CKD (chronic kidney disease) stage 4, GFR 15-29 ml/min (Primary Dx) Discharge Disposition: Home Social History Tobacco Use [...] or questions. After hours, call the hospital label machine operator at and ask for the anesthesiologist public relations sales marketing.POST ANESTHESIA INSTRUCTIONS Go home, rest, use caution [...] times daily. 11/04/2018 blood sugar diagnostic strips (RunfacesTOUCH ULTRA TEST) Strip 1 each by Other [...] daily. 30 tablet 12 06/13/2015 10/24/2018 Insulin [place], Disposable, 31 X 5/16 Needle Inject 1 each subcutaneously 2 times daily (before meals). 100 each 07/19/2014 02/25/2024 documented as of this encounter [...] tablet 12 ??? blood sugar diagnostic strips (ONETOUCH ULTRA [...] mouth 3 times daily. 0 ??? Insulin [place], Disposable, 31 X 5/16 Needle Inject 1 [...] the patient and he elects to proceed [facility] Vascular Surgery Resident [id number] documented in this encounter Miscellaneous Notes * Op Note - Manpreet Reese MD - 09/05/2018 7:31 PM EST [facility] [place] Note Patient Name: Gerson Bonilla : [id number] MR#: [id number] Case Date: 09/05/2018 Surgeon: Surgeon(s) and Role: [...] Text Report Department: Vascular Surgery Lab Patient: [id number] (GERSON BONILLA) CPT: 17458 ICD10: N18.4 Referring Physician: MANPREET REESE ?? [...] Glucose, POC 89 65 - 199 mg/dL [facility] Comment: Supplemental ranges: <140 mg/dL before meals <180 mg/dL all other times of the day Blood specimen (specimen) 09/05/2018 3:23 PM EST 09/05/2018 3:23 PM EST Manpreet Reese MD POINT OF CARE TEST ORDERABLES Performing Organization Address City/[facility]/ZIP Co de Phone Number [facility] [place] [address] * Potassium (09/05/2018 1:20 PM EST) Potassium 4.6 3.5 - 5.0 mmol/L [facility] Comment: Please note: ??Patients [...] In Lab Jeyson Roy MD CHEMISTRY ORDERABLES [facility] [place] [address] documented in this encounter Visit Diagnoses Diagnosis CKD (chronic kidney disease) stage 4, GFR 15-29 ml/min- Primary Chronic kidney disease, Stage IV (severe) documented in this encounter Administered Medications Inactive Administered Medications - up to 3 most recent administrations Medication Order MAR Action Action Date Dose Rate Site fentaNYL (PF) 50mcg/mL injection 50 mcg, Intravenous, EVERY 5 MIN PRN, Starting on Wed09/05/18 at 1503, Until Wed09/05/18 at 1932, Pain, or prior to injection of local anesthetic., Hold for respiratory rate less than 8 breaths per minute. (maximum dose 200 mcg), Day of Surgery (Day of Procedure), Routine Given 09/05/2018 4:07 PM EST 50 mcg midazolam (PF) (VERSED) injection 1 mg 1 mg, Intravenous, EVERY 5 MIN PRN, Starting on Wed09/05/18 at 1503, Until Wed09/05/18 at 1932, Sleep, or prior to injection of local anesthetic, Hold for delirium/agitation. (Maximum dose 5 mg)., Day of Surgery (Day of Procedure), Routine Given 09/05/2018 4:05 PM EST 2 mg documented in this encounter Active and [...] Until Wed09/05/18 at 2145, Intra-Operative (Intra-Procedure), Routine 185 (Given - Provid er: Lani Walker MD) [...] MD) documented in this encounter Care Teams Scientific Illustrator Relationship Specialty Start Date End Date Adeola Villegas, MONA PCP - General Family Medicine 01/13/17 02/05/19 documented as of this encounter
--- OUTSIDE RECORDS SUMMARY | 2024-12-05 12:42 | XMS_ITS | Encounter Summary ---
[place] [address] Care Team Providers Care Agriscience Instructor Name Role Phone Adeola Villegas APRN Primary Care Provider [phone] Encounter Details Date Type Department Care Team (Late st Contact Info) Description 12/21/2018 Orders Only [place] [address] Debra Akins RN Pre-transplant evaluation for kidney transplant Social [...] documented as of this encounter Results * Transplant: Blood draw kit request (12/21/2018 1:40 PM EST) TXP BLD Draw Req Sample in lab. [facility] Blood specimen (specimen) 12/21/2018 1:40 PM EST 12/21/2018 2:27 PM EST Narrative Resulting Agency Comment Spec In Lab Kiel Paulson MD LAB SEND OUT STEF Gallegos Organization Address City/State/ZIP Co de Phone Number [facility] [place] [address] documented in this encounter Visit Diagnoses Diagnosis Pre-transplant evaluation for kidney transplant Other specified pre-operative examination documented in this encounter Care Teams Agriscience Instructor Relationship Specialty Start Date End Date Adeola Villegas APRN PCP - General Family Medicine 01/13/17 02/05/19 documented as of this encounter
--- OUTSIDE RECORDS SUMMARY | 2024-12-05 12:42 | XMS_ITS | Encounter Summary ---
Author Organization [facility] Address [facility] [place] [address] Care Team Providers Care Muck Boss Name Role Phone Adeola Villegas APRN Primary Care Provider Encounter Details Date Type Department Care Team (Late st Contact Info) Description 09/01/2018 9:00 AM EST Office Visit [place] [address] Sandra Pacheco, RN Pre-transplant evaluation for kidney transplant Social [...] as of this encounter Progress Notes * Sandra Pacheco, RN - 09/01/2018 9:00 AM EST I met with Gerson Bruner briefly to review evaluation testing. Due to patients severe back pain testing is being spread over multiple days to ease the process forhim. Xander did not have any question regarding his evaluation and has his list of requested testing with him. During his visit he was hypertensive, he reports he has been having high reading at home as well. Irequested his nephrology nurse Marichuy meet with him for further evaluation and management. He wasable to meet with him while he was in the clinic. I provided him with donor packets at his request, I reviewed the process of donors calling in if they are interested in donation. No other questions or concerns at this time. Xander will continue to work with his nurse Debra to complete his evaluation for kidney transplant. documented in this encounter Plan of Treatment Not on file documented as of this encounter Visit Diagnoses Diagnosis Pre-transplant evaluation for kidney transplant Other specified pre-operative examination documented in this encounter Care Teams Muck Boss Relationship Specialty Start Date End Date Adeola Villegas APRN PCP - General Family Medicine 01/13/17 02/05/19 documented as of this encounter
--- OUTSIDE RECORDS SUMMARY | 2024-12-05 12:42 | XMS_ITS | Encounter Summary ---
[place] [address] Care Team Providers Care Manager Non Profit Name Role Phone Adeola Villegas APRN Primary Care Provider Encounter Details Date Type Department Care Team (Latest Contact Info) Description 10/24/2018 1:30 PM EST Laboratory Appointment Lab [address] [place] [phone] Anemia of chronic renal failure, stage 4 [...] Priority Date/Time Associated Diagnosis Comments PTH Routine 10/24/2018 1:06 PM EST Anemia of chronic renal failure, stage 4 (severe) HEMOGRAM Routine 10/24/2018 1:06 PM EST Anemia of chronic renal failure, stage 4 (severe) CKD (chronic kidney disease) stage 4, GFR 15-29 ml/min DIFFERENTIAL, AUTOMATED Routine 10/24/2018 1:06 PM EST Anemia of chronic renal failure, stage 4 (severe) CKD (chronic kidney disease) stage 4, GFR 15-29 ml/min GOLD TUBE HOLD Routine 10/24/2018 1:06 PM EST Anemia of chronic renal failure, stage 4 (severe) CKD (chronic kidney disease) stage 4, GFR 15-29 ml/min CBC (WITH DIFF) Routine 10/24/2018 1:06 PM EST Anemia of chronic renal failure, stage 4 (severe) CKD (chronic kidney disease) stage 4, GFR 15-29 ml/min PHOSPHORUS Routine 10/24/2018 1:06 PM EST Anemia of chronic renal failure, stage 4 (severe) ALBUMIN LEVEL Routine 10/24/2018 1:06 PM EST Anemia of chronic renal failure, stage 4 (severe) BASIC METABOLIC PANEL Routine 10/24/2018 1:06 PM EST Anemia of chronic renal failure, stage 4 (severe) documented in this encounter Results * Differential, Automated (10/24/2018 1:06 PM EST) Neutrophil % 56.5 % [facility] Neutrophil Absolute 4.00 1.70 - 6.10 x10(3)/[facility] Lymph % 31.2 % [facility] Lymphocytes Abs 2.2 0.9 - 3.2 x10(3)/[facility] Monocyte % 8.8 % [facility] Monocyte Abs 0.6 0.3 - 0.9 x10(3)/[facility] Eos % 2.4 % [facility] Eosinophils Abs 0.2 0.0 - 0.4 x10(3)/[facility] Basophil % 0.8 % [facility] Baso Absolute 0.1 0.0 - 0.1 x10(3)/[facility] Immature Gran % 0.30 % [facility] Comment: Immature granulocytes(IG's)percentage and absolute count will include metamyelocytes, myelocytes, and promyelocytes. Blood smears from CBCs yielding IG's will be scanned manually for concordance. If this scan disagrees with the automated IG or if promyelocytes are noted, a manual differential will be performed. Immature Gran Absolute 0.02 0.00 - 0.04 x10(3)/mcL [facility] Blood specimen (specimen) 10/24/2018 1:06 PM EST 10/24/2018 1:18 PM EST Narrative Resulting Agency Comment Spec In Lab Sukumar Khan MD HEMATOLOGY ORDER FRANSISCO [facility] [place] [address] * (ABNORMAL) Hemogram (10/24/2018 1:06 PM EST) White Blood Cell 7.1 4.0 - 9.5 x10(3)/[facility] Red Blood Cell 3.51(L) 4.58 - 5.54 x10(6)/[facility] Hemoglobin 10.5(L) 13.7 - 16.5 gm/dL [facility] Hematocrit 31.8(L) 40.5 - 48.5 % [facility] Mean Cell Volume 90.6 82.9 - 93.1 fL [facility] Mean Cell Hemoglobin 29.9 27.5 - 32.1 pg [facility] Mean Cell Hemoglobin Concentration 33.0 32.0 - 35.7 gm/dL [facility] Platelet 295 145 - 357 x10(3)/ L [facility] RDW Standard Deviation 43.6 36.0 - 45.0 [facility] RDW coefficient of variation 13.2 11.4 - 13.8 % [facility] Mean Platelet Volume 11.2 7.6 - 12.9 fL [facility] NRBC% auto 0.0 % [facility] NRBC Absolute 0.000 0.000 - 0.000 x10(3)/[facility] Blood specimen (specimen) 10/24/2018 1:06 PM EST 10/24/2018 1:18 PM EST Narrative Resulting Agency Comment Spec In Lab Sukumar Khan MD HEMATOLOGY ORDER FRANSISCO Performing Organization Address City/[facility]/ZIP Co de Phone Number [facility] [place] [address] * Gold Tube HOLD (10/24/2018 1:06 PM EST) Gold Hold Sample in lab. [facility] Blood specimen (specimen) 10/24/2018 1:06 PM EST 10/24/2018 1:18 PM EST Agustin Espinosa MD CHEMISTRY ORDERABLE S Performing Organization Address [facility] Co de Phone Number [facility] [place] [address] * (ABNORMAL) Basic Metabolic Panel (non-fasting) (10/24/2018 1:06 PM EST) Glucose 86 65 - 199 mg/dL [facility] Comment:Diabetes: >=200 mg/d L plus symptoms Blood Urea Nitrogen 54(H) 10 - 20 mg/dL [facility] Creatinine 4.15(H) 0.80 - 1.50 mg/dL [facility] Sodium 142 135 - 145 mmol/L [facility] Potassium 4.7 3.5 - 5.0 mmol/L [facility] Comment: Please note: ??Patients with WBC >100,000 may have falsely elevated Potassium levels. ??For accurate Potassium quantification in these patients send serum separator tube (gold top) for subsequent determinations. ??Contact the Clinical Chemistry Laboratory if there are any questions. Chloride 106 98 - 107 mmol/L [facility] Carbon Dioxide 23 22 - 31 mmol/L [facility] Anion Gap 13 5 - 15 mmol/L [facility] Calcium 8.6 8.5 - 10.5 mg/dL [facility] Est Glomerular Filtration Rate 16(L) >=60 mL/min/1. 73 m?? [facility] Comment: The eGFR was calculated using the CKD-EPI equation. As with all creatinine based estimates of kidney function, eGFR values calculated with the CKD-EPI equation are not accurate in patients with acute kidney failure, extremes of body mass or the acutely ill. http://[employer]/[facility] eGFR 18(L) >=60 mL/min/1. 73 m?? [facility] Comment: The eGFR was calculated using the CKD-EPI equation. As with all creatinine based estimates of kidney function, eGFR values calculated with the CKD-EPI equation are not accurate in patients with acute kidney failure, extremes of body mass or the acutely ill. http://[employer]/[facility] Blood specimen (specimen) 10/24/2018 1:06 PM EST 10/24/2018 1:18 PM EST Narrative Resulting Agency Comment Spec In Lab Agustin Espinosa MD CHEMISTRY ORDERABLE S Performing Organization Address City/[facility]/ZIP Co de Phone Number [facility] [place] [address] * Phosphorus (10/24/2018 1:06 PM EST) Phosphorus 4.4 2.5 - 4.5 mg/dL [facility] Blood specimen (specimen) 10/24/2018 1:06 PM EST 10/24/2018 1:18 PM EST Narrative Resulting Agency Comment Spec In Lab Agustin Espinosa MD CHEMISTRY ORDERABLE S Performing Organization Address [facility]/ZIP Co de Phone Number [facility] [place] [address] * (ABNORMAL) Albumin Level (10/24/2018 1:06 PM EST) Albumin 3.0(L) 3.2 - 5.2 gm/dL [facility] Blood specimen (specimen) 10/24/2018 1:06 PM EST 10/24/2018 1:18 PM EST Narrative Resulting Agency Comment Spec In Lab Agustin Espinosa MD CHEMISTRY ORDERABLE S Performing Organization Address City/[facility]/ZIP Co de Phone Number [facility] [place] [address] * (ABNORMAL) PTH (10/24/2018 1:06 PM EST) Parathyroid Hormone 154(H) 15 - 65 pg/mL [facility] Blood specimen (specimen) 10/24/2018 1:06 PM EST 10/24/2018 1:18 PM EST Narrative Resulting Agency Comment Spec In Lab Agustin Espinosa MD CHEMISTRY ORDERABLE S Performing Organization Address [facility] Co de Phone Number [facility] [place] [address] documented in this encounter Visit Diagnoses Diagnosis Anemia of chronic renal failure, stage 4 (severe) CKD (chronic kidney disease) stage 4, GFR 15-29 ml/min Chronic kidney disease, Stage IV (severe) documented in this encounter Care Teams Manager Non Profit Relationship Specialty Start Date End Date Adeola Villegas APRN PCP - General Family Medicine 01/13/17 02/05/19 documented as of this encounter
--- OUTSIDE RECORDS SUMMARY | 2024-12-05 12:42 | XMS_ITS | Encounter Summary ---
[place] [address] Care Team Providers Care Shop Girl Name Role Phone Bakari Adeola Sanchez APRN Primary Care Provider [phone] Encounter Details Date Type Department Care Team (Latest Contact Info) Description 12/21/2018 12:15 PM EST Laboratory Appointment Lab [address] [place] [phone] Pre-transplant evaluation for kidney transplant Social History [...] Procedure Name Priority Date/Time Associated Diagnosis Comments TRANPLANT: BLOOD DRAW KIT REQUEST - INTERNAL Routine 12/21/2018 1:40 PM EST Pre-transplant evaluation for kidney transplant documented in this encounter Results * Transplant: Blood draw kit request (12/21/2018 1:40 PM EST) TXP BLD Draw Req Sample in lab. [facility] Blood specimen (specimen) 12/21/2018 1:40 PM EST 12/21/2018 2:27 PM EST Narrative Resulting Agency Comment Spec In Lab Kiel Paulson MD LAB SEND OUT STEF Gallegos Organization Address City/State/ZIP [place] [address] documented in this encounter Visit Diagnoses Diagnosis Pre-transplant evaluation for kidney transplant Other specified pre-operative examination documented in this encounter Care Teams Shop Girl Relationship Specialty Start Date End Date Adeola Villegas APRN PCP - General Family Medicine 01/13/17 02/05/19 documented as of this encounter
--- OUTSIDE RECORDS SUMMARY | 2024-12-05 12:42 | XMS_ITS | Encounter Summary ---
Author Organization [facility] Address [facility] [place] [address] Care Team Providers Care Song Plugger Name Role Phone Bakari Adeola Laura DUNN Primary Care Provider Encounter Details Date Type Department Care Team (Late st Contact Info) Description 11/07/2018 Telephone [place] [address] Marichuy So RN Social History Tobacco Use [...] Telephone Encounter - Marichuy So RN - 11/07/2018 9:53 AM EST S/O: Call to patient to check in on weights. He is weighing in at 203.4 today. He thinks his dry weight is about 200 pounds. 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 He continues on Lasix 80 mg BID. He has an appointment with his PCP today. P: Continue Lasix 80 mg BID, continue daily weights. Will check in on with weights. If approaching dry weight, will request guidance regarding Lasix dosing. Above sent to Dr Khan for review and recommendation documented in this encounter Plan of Treatment Not on file documented as of this encounter Visit Diagnoses Not on filedocumented in this encounter Care Teams Song Plugger Relationship Specialty Start Date End Date Adeola Villegas APRN PCP - General Family Medicine 01/13/17 02/05/19 documented as of this encounter
--- OUTSIDE RECORDS SUMMARY | 2024-12-05 12:43 | XMS_ITS | Encounter Summary ---
[place] [address] Care Team Providers Care Pump Servicer Helper Name Role Phone Adeola Villegas APRN Primary Care Provider [phone] Encounter Details Date Type Department Care Team (Late st Contact Info) Description 07/04/2018 Abstract [place] [address] Carola Jane Social History Tobacco Use Types Packs/Day Years [...] on filedocumented in this encounter Care Teams Pump Servicer Helper Relationship Specialty Start Date End Date Adeola Villegas APRN PCP - General Family Medicine 01/13/17 02/05/19 documented as of this encounter
--- OUTSIDE RECORDS SUMMARY | 2024-12-05 12:43 | XMS_ITS | Encounter Summary ---
Author Organization [facility] [place] [address] Care Team Providers Care Digital Retoucher Name Role Phone Adeola Villegas APRN Primary Care Provider Encounter Details Date Type Department Care Team (Late st Contact Info) Description 04/14/2018 Abstract Solid [place] [address] Naif Marrufo Social History Tobacco Use Types Packs/Day Years [...] on filedocumented in this encounter Care Teams Digital Retoucher Relationship Specialty Start Date End Date Adeola Villegas APRN PCP - General Family Medicine 01/13/17 02/05/19 documented as of this encounter
--- OUTSIDE RECORDS SUMMARY | 2024-12-05 12:43 | XMS_ITS | Encounter Summary ---
Author Organization [facility] Address [facility] [place] [address] Care Team Providers Care Broomcorn Seeder Name Role Phone Bakari Adeola Sanchez APRN Primary Care Provider [phone] Encounter Details Date Type Department Care Team (Late st Contact Info) Description 08/15/2018 Orders [place] [address] Goldie Arteaga RN Anemia of chronic renal failure, stage [...] Type Priority Associated Diagnoses Orde r Schedule AV FISTULA CREATE, HEMODIALYSIS, ANY SITE, EG GABRIEL FISTULA UP EXTR Procedures Routine One Time for 1 Occurrences starting 08/15/2018 until 08/15/2018 documented as of this encounter Results * Potassium (09/05/2018 1:20 PM EST) Potassium 4.6 3.5 - 5.0 mmol/L [facility] Comment: Please note: ??Patients with [...] In Lab Jeyson Roy MD CHEMISTRY ORDERABLES [facility] [place] [address] documented in this encounter Visit Diagnoses Diagnosis Anemia of chronic renal failure, stage 4 (severe) CKD (chronic kidney disease) stage 4, GFR 15-29 ml/min Chronic kidney disease, Stage IV (severe) documented in this encounter Care Teams Broomcorn Seeder Relationship Specialty Start Date End Date Adeola Villegas APRN PCP - General Family Medicine 01/13/17 02/05/19 documented as of this encounter
--- OUTSIDE RECORDS SUMMARY | 2024-12-05 12:43 | XMS_ITS | Encounter Summary ---
Author Organization [facility] Address [facility] [place] [address] Care Team Providers Care Process Safety Management Engineer Name Role Phone Bakari Adeola Sanchez APRN Primary Care Provider Encounter Details Date Type Department Care Team (Late st Contact Info) Description 05/20/2018 Telephone Nephrology [place] [address] Marichuy So RN Social History Tobacco Use Types Packs/Day Years Used Date Smoking Tobacco: Every Day Cigarettes Smokeless Tobacco: Never Sex and Gender Information Value Date Recorded Sex Assigned at Not on file Gender Identity Not on file Sexual Orientation Not on file documented as of this encounter Miscellaneous Notes * Telephone Encounter - Marichuy So RN - 05/20/2018 10:53 AM EDT S/O: Patient has elevated potassium level today. Education today for high potassium level. Discussed need to limit high potassium foods in the diet. Patient identifies these foods to be high in potassium: Potatoes, citrus fruits Patient education material sent/given to patient include: Potassium list for low, medium and high potassium foods Patient will limit foods that are high in potassium. Potatoes have a lot of potassium in them. You can reduce the potassium in them by peeling the skins, cutting the potato into many cubes, soaking them over night in water and draining the water. Boil the potatos in fresh water and enjoy! P: Patient has recall for June appointment. Labs sent to Dr Gilliland for review documented in this encounter Plan of Treatment Not on file documented as of this encounter Visit Diagnoses Not on filedocumented in this encounter Care Teams Process Safety Management Engineer Relationship Specialty Start Date End Date Adeola Villegas APRN PCP - General Family Medicine 01/13/17 02/05/19 documented as of this encounter
--- OUTSIDE RECORDS SUMMARY | 2024-12-05 12:43 | XMS_ITS | Encounter Summary ---
Author Organization [facility] [place] [address] Care Team Providers Care Senior Software Development Engineer Name Role Phone Adeola Villegas APRN Primary Care Provider [phone] Encounter Details Date Type Department Care Team (Late st Contact Info) Description 08/24/2018 Telephone [place] [address] Debra Akins RN Social History Tobacco Use [...] Telephone Encounter - Debra Stafford RN - 08/24/2018 12:41 PM EDT Xander reports he will be here 09/01 for an apt and can be scheduled for our transplant testing that day around that apt. I have let the secretaries know and they will reach out to him for timing. documented in this encounter Plan of Treatment Not on file documented as of this encounter Visit Diagnoses Not on filedocumented in this encounter Care Teams Senior Software Development Engineer Relationship Specialty Start Date End Date Adeola Villegas APRN PCP - General Family Medicine 01/13/17 02/05/19 documented as of this encounter
--- OUTSIDE RECORDS SUMMARY | 2024-12-05 12:43 | XMS_ITS | Encounter Summary ---
Author Organization [facility] [place] [address] Care Team Providers Care Burner Hand Name Role Phone Adeola Villegas APRN Primary Care Provider Encounter Details Date Type Department Care Team (Late st Contact Info) Description 05/18/2018 Telephone [place] [address] Marichuy So, RN Social History Tobacco Use Types Packs/Day Years Used Date Smoking Tobacco: Every Day Cigarettes Smokeless Tobacco: Never Sex and Gender Information Value Date Recorded Sex Assigned at Not on file Gender Identity Not on file Sexual Orientation Not on file documented as of this encounter Miscellaneous Notes * Telephone Encounter - Marichuy So RN - 05/18/2018 3:27 PM EDT Left message for patient to remind to have CBC, BMP drawn at [facility] Offered to resend lab slips if needed documented in this encounter Plan of Treatment Not on file documented as of this encounter Visit Diagnoses Not on filedocumented in this encounter Care Teams Burner Hand Relationship Specialty Start Date End Date Adeola Villegas APRN PCP - General Family Medicine 01/13/17 02/05/19 documented as of this encounter
--- OUTSIDE RECORDS SUMMARY | 2024-12-05 12:43 | XMS_ITS | Encounter Summary ---
Author Organization [facility] Address [facility] [place] [address] Care Team Providers Care Residential Roofer Helper Name Role Phone Adeola Villegas APRN Primary Care Provider Encounter Details Date Type Department Care Team (Late st Contact Info) Description 08/24/2018 Telephone Solid [place] [address] Debra Akins RN Social History Tobacco Use [...] Encounter - Debra Stafford RN - 08/24/2018 11:05 AM EDT VM left for Xander to call back. Need to see if he is feeling well enough to reschedule his missed testing/ appointments from 08/16/2018. documented in this encounter Plan of Treatment Not on file documented as of this encounter Visit Diagnoses Not on filedocumented in this encounter Care Teams Residential Roofer Helper Relationship Specialty Start Date End Date Adeola Villegas APRN PCP - General Family Medicine 01/13/17 02/05/19 documented as of this encounter
--- OUTSIDE RECORDS SUMMARY | 2024-12-05 12:43 | XMS_ITS | Encounter Summary ---
Author Organization [facility] Address [facility] [place] [address] Care Team Providers Care Android Developer Name Role Phone Bakari Adeola Sanchez APRN Primary Care Provider [phone] Encounter Details Date Type Department Care Team (Late st Contact Info) Description 08/08/2018 Telephone [place] [address] Marichuy So, RN Social History Tobacco Use Types Packs/Day Years Used Date Smoking Tobacco: Every Day Cigarettes Smokeless Tobacco: Never Sex and Gender Information Value Date Recorded Sex Assigned at Not on file Gender Identity Not on file Sexual Orientation Not on file documented as of this encounter Miscellaneous Notes * Telephone Encounter - Marichuy So RN - 08/08/2018 10:09 AM EDT S/O: Call to patient to check in after ED visit. His back pain has been severe and he had an MRI this morning to evaluate. His Blood Pressure and Blood sugars were both elevated and had to be managedin ED. He has had multiple medications ordered for pain management and needs to follow up with his PCP for management. He has also quit smoking on 07/17/18. * Telephone Encounter - Marichuy So RN - 08/08/2018 10:09 AM EDT ----- Message from Marichuy So RN sent at 08/05/2018 3:47 PM EDT ----- Follow up after sending to ER with HTN urgency documented in this encounter Plan of Treatment Not on file documented as of this encounter Visit Diagnoses Not on filedocumented in this encounter Care Teams Android Developer Relationship Specialty Start Date End Date Adeola Villegas APRN PCP - General Family Medicine 01/13/17 02/05/19 documented as of this encounter
--- OUTSIDE RECORDS SUMMARY | 2024-12-05 12:43 | XMS_ITS | Encounter Summary ---
[place] [address] Care Team Providers Care Retail Event Coordinator Name Role Phone Adeola Villegas APRN Primary Care Provider Encounter Details Date Type Department Care Team (Late st Contact Info) Description 05/02/2018 Telephone [place] [address] Naif Marrufo Social History Tobacco Use Types Packs/Day Years Used Date Smoking Tobacco: Every Day Cigarettes Smokeless Tobacco: Never Sex and Gender Information Value Date Recorded Sex Assigned at Not on file Gender Identity Not on file Sexual Orientation Not on file documented as of this encounter Miscellaneous Notes * Telephone Encounter - Naif Marrufo - 05/02/2018 2:09 PM EDT Left VM asking for return call documented in this encounter Plan of Treatment Not on file documented as of this encounter Visit Diagnoses Not on filedocumented in this encounter Care Teams Retail Event Coordinator Relationship Specialty Start Date End Date Adeola Villegas APRN PCP - General Family Medicine 01/13/17 02/05/19 documented as of this encounter
--- OUTSIDE RECORDS SUMMARY | 2024-12-05 12:43 | XMS_ITS | Encounter Summary ---
[facility] [place] [address] Care Team Providers Care Live Study Manager Name Role Phone Bakari Adeola Sanchez APRN Primary Care Provider [phone] Encounter Details Date Type Department Care Team (Late st Contact Info) Description 05/20/2018 External Results [place] [address] Marichuy So RN Social History Tobacco Use [...] Procedure Name Priority Date/Time Associated Diagnosis Comments CBC (WITH DIFF) Routine 05/17/2018 documented in this encounter Results * (ABNORMAL) CBC (with Diff) (05/17/2018) White Blood Cell 9.99(Exte rnal Lab) Red Blood Cell 3.65(Exte rnal Lab) Hemoglobin 11.0(Exte rnal Lab) Hematocrit 34.2(Exte rnal Lab) Mean Cell Volume 93.7(Exte rnal Lab) Mean Cell Hemoglobin 30.1(Exte rnal Lab) Mean Cell Hemoglobin Concentration 32.2(Exte rnal Lab) RDW coefficient of variation 13.3(Exte rnal Lab) Platelet 250(Exter nal Lab) Mean Platelet Volume 12.3(Exte rnal Lab) Neutrophil % 77.3(Exte rnal Lab) Lymph % 14.4(Exte rnal Lab) Monocyte % 6.9(Exter nal Lab) Eosinophil Manual 1.0(Exter nal Lab) Basophil % 0.2(Exter nal Lab) Immature Gran % 0.2(Exter nal Lab) Neutrophil Absolute (ANC) - Automated 7.72(Exte rnal Lab) Lymph Absolute Manual 1.44(Exte rnal Lab) Monocyte Abs 0.69(Exte rnal Lab) Eos Absolute Manual 0.010(EXT ERNAL/ABN ) Baso Absolute Manual 0.02(Exte rnal Lab) Blood specimen (specimen) 05/17/2018 Historical Provider HEMATOLOGY ORDERA BLES documented in this encounter Visit Diagnoses Not on filedocumented in this encounter Care Teams Live Study Manager Relationship Specialty Start Date End Date Adeola Villegas APRN PCP - General Family Medicine 01/13/17 02/05/19 documented as of this encounter
--- OUTSIDE RECORDS SUMMARY | 2024-12-05 12:43 | XMS_ITS | Encounter Summary ---
Author Organization [facility] Address [facility] [place] [address] Care Team Providers Care Floor Manager Name Role Phone Bakari Adeola Sanchez APRN Primary Care Provider Encounter Details Date Type Department Care Team (Late st Contact Info) Description 08/05/2018 Telephone Solid Organ Transplant at [facility] [place] [address] Debra Akins RN Social History Tobacco Use Types Packs/Day Years Used Date Smoking Tobacco: Every Day Cigarettes Smokeless Tobacco: Never Sex and Gender Information Value Date Recorded Sex Assigned at Not on file Gender Identity Not on file Sexual Orientation Not on file documented as of this encounter Miscellaneous Notes * Telephone Encounter - Debra Stafford RN - 08/05/2018 11:12 AM EDT Received a call from Mr. Bruner. He did not know who he should be calling but had our number as he is in transplant evaluation. Reports blood pressure 210/88, weakness to the point where he can barelystand up, L leg pain (although states it could be his sciatica acting up). Reports blood pressure being in the 200s the last couple of days. Reports he did take his 10mg amlodipine this morning. BPs normally 140s per his chart. He was unsure where they normally run. I let the patient know he should go to the ER but that I was checking in with his nephrology team as we are only an evaluation referral. Report given to VIDYA Benedict who took this information to Dr. Love. Marichuy stated she would take over this and would contact the patient after talking with Dr. Love. documented in this encounter Plan of Treatment Not on file documented as of this encounter Visit Diagnoses Not on filedocumented in this encounter Care Teams Floor Manager Relationship Specialty Start Date End Date Adeola Villegas APRN PCP - General Family Medicine 01/13/17 02/05/19 documented as of this encounter
--- OUTSIDE RECORDS SUMMARY | 2024-12-05 12:43 | XMS_ITS | Encounter Summary ---
Author Organization [facility] Address [facility] [place] [address] Care Team Providers Care State Manager Name Role Phone Bakari Adeola Laura DUNN Primary Care Provider [phone] Encounter Details Date Type Department Care Team (Late st Contact Info) Description 08/19/2018 Telephone Solid Organ Transplant at [facility] [place] [address] Debra Akins RN Social History Tobacco Use [...] Telephone Encounter - Debra Stafford RN - 08/19/2018 10:55 AM EDT Talked with Gerson about his evaluation. He is having extremely painful sciatica and has been in the hospital, discharged, not feeling well, spending a lot of time in bed. He reports wanting to do testing if it isn't too lengthy or strenuous. He agrees wanting to do a CXray. Will hold on other testing. He understands a CXray order is in already and he can show up to 3L at [facility] at anytime as it is a walk in clinic for chest xray. I will plan to call him in a week to see if he's feeling better to schedule more testing. * Telephone Encounter - Debra Stafford RN - 08/19/2018 10:55 AM EDT ----- Message from Debra Stafford RN sent at 08/18/2018 6:40 PM EDT ----- Regarding: FW: please call re: rescheduling Contact: ----- Message ----- From: Carola Jane Sent: 08/18/2018 9:10 AM To: Lamont [facility] Transplant Nurse Subject: please call re: rescheduling Gerson called and apologized for not being able to make his appointments on 08/16 as he know several people were involved. He has sciatica and couldn't even get out of bed. He would like to reschedule but there are some tests he could not handle right now because he's in so much pain and can barely walk. He isn't able tosee anyone about the sciatica for awhile. He would like to talk to the coordinator about which tests he could comfortably do before he is seen for the sciatica. documented in this encounter Plan of Treatment Not on file documented as of this encounter Visit Diagnoses Not on filedocumented in this encounter Care Teams State Manager Relationship Specialty Start Date End Date Adeola Villegas APRN PCP - General Family Medicine 01/13/17 02/05/19 documented as of this encounter
--- OUTSIDE RECORDS SUMMARY | 2024-12-05 12:43 | XMS_ITS | Encounter Summary ---
Author Organization [facility] [place] [facility] [place] [address] Care Team Providers Care Fire Extinguisher Installer Name Role Phone Bakari Adeola Laura DUNN Primary Care Provider [phone] Reason for Referral * Consultation (Routine) - Closed Specialty Diagnoses / Procedures Referred By Nader gardiner Referred To Contact Vascular Surgery Diagnoses CKD (chronic kidney disease) stage 4, GFR 15-29 ml/min Cristhian Hameed MD [facility] [place] [address] Lilia Amaya MD [facility] [place] [place] [address] Referral ID Status Reason Start Date Expiration Date V isits Requested Visits Authorized [id number] Closed Consult, Test & Treat 07/04/2018 07/04/2019 1 1 Reason for Visit * Reason Comments Chronic Kidney Disease Encounter Details Date Type Department Care Team (Latest Contact Info) Description 07/04/2018 1:40 PM EDT Office Visit Nephrology Hypertension at [place] [id number] Cristhian Hameed MD A, Nurse Clinician None Sukumar Khan MD CKD (chronic kidney disease) stage 4, GFR 15-29 ml/min; Anemia, unspecified type; Hyperkalemia; Hyperlipidemia, unspecified hyperlipidemia type; Proteinuria, unspecified type Social History Tobacco Use Types Packs/Day Years Used Date Smoking Tobacco: Every Day Cigarettes Smokeless Tobacco: Never Sex and Gender Information Value Date Recorded Sex Assigned at Not on file Gender Identity Not on file Sexual Orientation Not on file documented as of this encounter Last Filed Vital Signs Vital Sign Reading Time Taken Comments Blood Pressure 142/68 07/04/2018 1:54 PM EDT Pulse 60 07/04/2018 1:54 PM EDT Temperature - - Respiratory Rate - - Oxygen Saturation - - Inhaled Oxygen Concentration - - Weight 94.3 kg (208 lb) 07/04/2018 1:54 PM EDT Height 176.5 cm (5' 9.5) 07/04/2018 1:54 PM EDT Body Mass Index 30.28 07/04/2018 1:54 PM EDT documented in this encounter Patient Instructions * Patient Instructions* Marichuy So RN - 07/04/2018 1:40 PM EDT We would like to refer you to vascular surgery for evaluation for dialysis access. Increase amplodipine to 10 mg daily for better blood pressure control From a renal standpoint, you can use smoking cessation aides like Chantix or Nicotine patches. Call if you feel differently (consistent symptoms of nausea, vomiting, little appeal for food, itching, change in sleep patterns, worsening energy levels, shortness of breath). These are some of the signs of worsening kidney function. We will see you sooner if you are not feeling well. Please call. Marichuy DOYLE-pediatric neurologist Kidney Disease Nurse Specialist at [facility] Nephrology. documented in this encounter Progress Notes * Sukumar Khan MD - 07/04/2018 1:40 PM EDT [facility] [address] [place] [address] Reason for Clinic Visit: Systems Review and CKD management. Seen in clinic with: Marichuy So RN, CKD RN Specialist CKD related to: Diabetes, HTN ID: This is a 52yo male with a history of CKD G4 secondary to HTN and DM2 who returns for a routinefollow-up. Interim Hx: Patient reports doing ok since last visit. Reports fatigue. 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 Denies any urinary symptoms. Patient was evaluated by the transplant team on 06/02 and is undergoing required testing/screening. Patient continues to smoke however wants to quit. accompanies him today. History obtained by RN Specialist: Gerson is being seen in follow up to his March office visit. He has been evaluated by the transplant team and is undergoing testing. He continues to smoke and is interested in help quitting. Off balance first thing in morning and tired by end of day but otherwise feels pretty good. Review of Systems: Sign/Symptom Comments Energy level/fatigue: All right - tired at the end of the day Change in sleep patterns: Sleeping well at night Nocturia: none Appetite changes: Appetite is good - lower potassium diet Food aversions: none Nausea: none Vomiting: none Bowels: none Edema: Ankle swelling Shortness of breath: none Orthopnea/PND: Yes PND, wakes up with chocking feeling Hx GERD, 2 pillows at night Muscle Cramping: First thing in am in calves Cold intolerance: Yes - mild Itching: no Bruising/bleeding: none Mental Status Changes: none Recent Home Blood Pressure Control: Not checking Recent Home Diabetic Management: Not checking as often as he should Recent Lipid Management: None Advance Directives: 07/04 -no - forms given How has your health been in the last 4 weeks? Poor, Fair, Good, Very Good, Excellent. Additional CCM Comments: Hepatitis B Status: Serum Testing Date of [...] placed 07/04/18 for first time HD access Bruit: Yes No Thrill: Yes No Maturation: Yes No Temperature changes: Yes No Sensation changes: Yes No Pain: Yes No Incision Appearance: Other Comments: * Vaccinations: [...] Diabetes mellitus E11.9 ??? Hyperlipidemia E78.5 ??? CKD (chronic kidney disease) stage 3, GFR 30-59 ml/min N18.3 ??? Proteinuria R80.9 ??? Elevated blood pressure [id number] ??? Essential hypertension I10 ??? CKD (chronic kidney disease) stage 4, GFR 15-29 ml/min N18.4 ??? Pre-transplant evaluation for CKD (chronic kidney disease) Z01.818 Allergies Allergen Reactions ??? Clindamycin Swelling. ??? Gabapentin swelling ??? Penicillins Unknown reaction as a child. Medications 06/02/18 1416 Medication Sig Taking? insulin detemir U-100 (LEVEMIR) Solution Inject 50 Units subcutaneously nightly. ferrous sulfate 325 mg (65 mg iron) Tablet, Delayed Release (E.C.) Take 325 mg by mouth daily. aspirin 81 mg Tablet, Delayed Release (E.C.) Take 81 mg by mouth daily. pregabalin (LYRICA) 100 mg Capsule Take 200 mg by mouth 2 times daily. lisinopril (PRINIVIL;ZESTRIL) 10 mg Tablet Take 10 mg by mouth daily. multivitamin (THERAGRAN) Tablet Take 1 tablet by mouth daily. furosemide (LASIX) 40 mg Tablet Take 1 tablet by mouth daily. Insulin [place], Disposable, 31 X 5/16 Needle Inject 1 each subcutaneously 2 times daily (before meals). Blood Sugar Diagnostic (ONE TOUCH ULTRA TEST) Strip 1 each by Other route 2 times daily (before meals). Dx code 250.02 uses insulin Lancets Misc Inject 1 each subcutaneously 2 times daily (before meals). Dx code 250.02 uses insulin Physical Exam: Most Recent Vitals: 07/04/18 1354 BP: 142/68 Pulse: 60 PainSc: 0 - No pain Appearance - Awake and alert. NAD. Obese. Skin - No exanthem or wound. HEENT - No sclera icterus. Moist oral mucosa. Chest - Lungs CTA. Heart - S1 and S2. RRR. Grade 2 systolic murmur RUSB. No JVD. Abd - Soft. Non-tender. Distended. Normal BS. - No flank tenderness. Ext - Warm extremities. No cyanosis. 1+ BLE edema. Neuro - Normal speech. Labs Results for GERSON BONILLA ( ) as of 07/04/2018 15:15 Ref. Range 05/17/2018 00:00 05/19/2018 00:00 07/04/2018 14:18 WBC Latest Ref Range: 4.0 - 9.5 x10(3)/mcL 9.99 (External Lab) 7.9 RBC Latest Ref Range: 4.58 - 5.54 x10(6)/mcL 3.65 (External Lab) 3.44 (L) Hemoglobin Latest Ref Range: 13.7 - 16.5 gm/dL 11.0 (External Lab) 10.4 (L) Hematocrit Latest Ref Range: 40.5 - 48.5 % 34.2 (External Lab) 31.7 (L) MCV Latest Ref Range: 82.9 - 93.1 fL 93.7 (External Lab) 92.2 MCH Latest Ref Range: 27.5 - 32.1 pg 30.1 (External Lab) 30.2 MCHC Latest Ref Range: 32.0 - 35.7 gm/dL 32.2 (External Lab) 32.8 RDWSD Latest Ref Range: 36.0 - 45.0 fL 43.7 RDWCV Latest Ref Range: 11.4 - 13.8 % 13.3 (External Lab) 12.9 Platelets Latest Ref Range: 145 - 357 x10(3)/mcL 250 (External Lab) 231 MPV Latest Ref Range: 7.6 - 12.9 fL 12.3 (External Lab) 11.6 Sodium Latest Ref Range: 135 - 145 mmol/L 144 (External Lab) 143 Potassium Latest Ref Range: 3.5 - 5.0 mmol/L 5.9 (External Lab) 5.5 (H) Chloride Latest Ref Range: 98 - 107 mmol/L 111 (External Lab) 107 CO2 Latest Ref Range: 22 - 31 mmol/L 22 (External Lab) 24 Anion Gap Latest Ref Range: 5 - 15 mmol/L 12 BUN Latest Ref Range: 10 - 20 mg/dL 83 (External Lab) 56 (H) Creatinine Latest Ref Range: 0.80 - 1.50 mg/dL 3.94 (External Lab) 3.27 (H) eGFR Latest Ref Range: >=60 mL/min/1.73 m?? 16.19 (External Lab) 21 (L) eGFR Latest Ref Range: >=60 mL/min/1.73 m?? 24 (L) Glucose Lvl Latest Ref Range: 65 - 199 mg/dL 40 (External Lab) 161 Calcium Latest Ref Range: 8.5 - 10.5 mg/dL 8.7 (External Lab) 8.7 Phosphorus Latest Ref Range: 2.5 - 4.5 mg/dL 4.2 Albumin Latest Ref Range: 3.2 - 5.2 gm/dL 3.6 Problem/Goal/Assessment/Plan: Problem: Chronic Kidney Disease Goal: Reduce rate of progression Education for CKD Stage specific issues Results: Estimated GFR (MDRD): 21 ml/min/1.73m2 CKD Stage 4 - Potassium level - 5.5 - CO2 level - 24 - Uric Acid level - not tested Changes discussed with RN Specialist: We would like to refer you to vascular surgery for evaluationfor dialysis access. From a renal standpoint, you can use smoking cessation aides like Chantix or Nicotine patches. Call if you feel differently (consistent symptoms of nausea, vomiting, little appeal for food, itching, change in sleep patterns, worsening energy levels, shortness of breath). These are some of the signs of worsening kidney function. We will see you sooner if you are not feeling well. Please call. A/P: Renal function slightly improved from previous. Normal kidneys on U/S from 01/13/17. - Optimize BP and glycemic control. Although the patient should be on ACEi/ARB given significant proteinuria, will not start today due to hyperkalemic tendencies. - Will refer the patient to vascular surgery for vein mapping in preparation for future dialysis. - Appreciate ongoing evaluation by the transplant team. - Smoking cessation discussed at length. Patient can use any of the commercially available options from renal standpoing (Chantix etc). Will also refer to a local smoking cessation group. - Avoid NSAIDs and other nephrotoxins - Renally dose medications Problem: Management of Anemia related to Chronic Kidney Disease (CKD) Goal:P Hgb 9.5-10.9 g/dl Ferritin>100ng/ml TSAT>20% Today's Results Hgb - 10.4 Ferritin - 83 on 04/07/18 TSAT - 24 on 04/07/18 Receiving erythropoetic stimulating agent? No Iron Supplement; Date : Patient on oral iron Changes discussed with RN Specialist: None A/P: Hb at goal. Iron replete. Patient is on PO iron. No indication for GEORGE at this time. Problem: Hypertension Goal: Urine alb:cr ratio <30mg/g - 140/90, Urine alb:cr ratio > 30mg/g - 130/80 Sodium intake < 2 Gm per day. Results: BP today - 142/68 Changes discussed with RN Specialist: Increase amplodipine to 10 mg daily for better blood pressurecontrol A/P: Not well controlled. Will increase Amlodipine to 10mg daily. Discussed importance of home BP monitoring and log keeping. Will consider ACEi/ARB if K+ remains acceptable next visit. DASH diet also discussed. Problem: Proteinuria Goal: Pro:Cr ratio <0.2mg/mg Today's results: Pro:Cr ratio 2.3 Changes discussed with RN Specialist: Patient had been taken off Lisinopril due to hyperkalemia A/P: Worsening proteinuria. Lisinopril had been discontinued due to hyperkalemia. Continue to optimize BP and glycemic control. Will consider ACEi/ARB if K+ remains acceptable next visit. Problem: Bone Disease Goal: Stage 3 PTH: 35-70 pg/ml Phos 2.7-4.6 Ca 8.5-10.5mg/dl Stage 4 PTH: 70-110 pg/ml Phos 2.7-4.6 Ca 8.5-10.5mg/dl Stage 5 PTH: 150-300 pg/ml Phos 3.5-5.5 Ca 8.5-10.5mg/dl Results: PTH today - 107 ( pt not taking calcitriol) Phos today - 4.2 (pt not taking binders) Calcium today - 8.7 Changes discussed with RN Specialist: None A/P: Labs reviewed. Ca++ and Phos WNL. PTH at goal. No indication for binders at this time. Will continue to monitor. Problem: Nutrition Goal: Albumin > 4.0gm/dl BMI 20-25 kg/m2 Results: Albumin today - 3.6 Changes discussed with RN Specialist: Continue heart healthy diabetic diet A/P: Encourage healthy heart / diabetic diet with good protein intake. Problem: Diabetes Goal: HA1C ~ 7.0% Results: HA1C 7.4 om 04/07/18. Random Glucose - 161 Changes discussed with RN Specialist: None A/P: Not at goal however A1C improved from previous. Continue home glucose monitoring and insulin regimen. Healthy heart / diabetic diet. Regular physical activity encouraged. Referral: None Summary: This is a 52yo male with a history of CKD G4 secondary to HTN and DM2 who returns for a follow-up. Worsening proteinuria off Lisinopril due to hyperkalemia. Ongoing evaluation by transplant team. Optimizing BP and glycemic control along with smoking cessation of utmost importance. Return to CKD clinic: 4 months * Cristhian Hameed MD - 07/04/2018 1:40 PM EDT The patient was examined together with the renal fellow and Marichuy So, the [facility], and I agree with the above note which accurately reflects our findings and assessment documented in this encounter Plan of Treatment Scheduled Referrals Name Type Priority Associated Diagnoses Orde r Schedule Referral to Vascular Surgery Outpatient Referral Routine CKD (chronic kidney disease) stage 4, GFR 15-29 ml/min Ordered: 07/04/2018 documented as of this encounter Results * First Time Hemodialysis access (08/11/2018 10:10 AM EDT) VB Text Report Department: Vascular Surgery Lab Patient: [id number] (GERSON BONILLA) CPT: G0365 ICD10: Z01.818;N18.4 Referring Physician: CRISTHIAN HAMEED ?? Indications: ?? First time access ICD10 Diagnosis Code: Z01.818, N18.4 Findings: Shoulder Cephalic Vein, Right ? Mia.(mm): 3.3 Mid Upper Arm Cephalic Vein, Right ? Mia.(mm): 2.3 Antecubital Fossa Cephalic Vein, Right ? Mia.(mm): 5.2 ? Thrombus: NON-OCCLUSIVE THROMBUS Mid Forearm Cephalic Vein, Right ? Mia.(mm): 0.9 Wrist Cephalic Vein, Right ? Mia.(mm): 0.4 Upper Arm Basilic Vein, Right ? Mia.(mm): 2.0 Mid Upper Arm Basilic Vein, Right ? Mia.(mm): 1.6 Antecubital Fossa Basilic Vein, Right ? Mia.(mm): 1.0 Brachial Artery, Right ? Pres. (mmHg): 166 ? Waveform: Triphasic Shoulder Cephalic Vein, Left ? Mia.(mm): 3.5 Mid Upper Arm Cephalic Vein, Left ? Mia.(mm): 3.0 Antecubital Fossa Cephalic Vein, Left ? Mia.(mm): 4.2 ? Thrombus: NON-OCCLUSIVE THROMBUS Mid Forearm Cephalic Vein, Left ? Mia.(mm): 1.3 Wrist Cephalic Vein, Left ? Mia.(mm): 0.5 Upper Arm Basilic Vein, Left ? Mia.(mm): 2.3 Mid Upper Arm Basilic Vein, Left ? Mia.(mm): 2.5 Antecubital Fossa Basilic Vein, Left ? Mia.(mm): 2.5 Brachial Artery, Left ? Pres. (mmHg): 166 ? Waveform: Triphasic Interpretation: Patent bilateral axillo-subclavian veins with normal pulsatile, respirophasic Doppler flow signals. RIGHT: The cephalic vein has significant vein wall thickening with a sclerotic-like appearance through the forearm and very bulky non-occlusive thrombus at the antecubital fossa and low upper arm. Patent basilic vein with no evidence of thrombus; moderate circumferential vein wall thickening is noted. The brachial-basilic vein confluence is just above mid upper arm. The brachial artery bifurcation level is at the antecubital fossa. LEFT: The cephalic vein has significant vein wall thickening with a sclerotic-like appearance in the forearm with focal non-occlusive thrombus near/just above the antecubital fossa. Patent basilic vein with no evidence of thrombus; moderate circumferential vein wall thickening is noted. The brachial-basilic vein confluence is just above mid upper arm. The brachial artery bifurcation level is at the antecubital fossa. Comparison: ??No previous study in our vascular lab database for comparison. Electronically Signed by: YULISSA SANTOS MD on 2018-08-12 07:55:43 PM [facility] VB Text Report End of Report [facility] 08/11/2018 10:1 0 AM EDT Cristhian Hameed MD VASCULAR ORDERABLES Performing Organization Address [facility] de Phone Number [email or web address] * (ABNORMAL) PTH (07/04/2018 2:18 PM EDT) Parathyroid Hormone 107(H) 15 - 65 pg/mL [facility] Blood specimen (specimen) 07/04/2018 2:18 PM EDT 07/04/2018 2:25 PM EDT Narrative Resulting Agency Comment Spec In Lab Cristhian Hameed MD CHEMISTRY ORDERABLES Performing Organization Address [facility] Co de Phone Number [facility] [place] [address] * Albumin Level (07/04/2018 2:18 PM EDT) Albumin 3.6 3.2 - 5.2 gm/dL [facility] Blood specimen (specimen) 07/04/2018 2:18 PM EDT 07/04/2018 2:25 PM EDT Narrative Resulting Agency Comment Spec In Lab Cristhian Hameed MD CHEMISTRY ORDERABLES Performing Organization Address [facility] Co de Phone Number [facility] [place] [address] * Phosphorus (07/04/2018 2:18 PM EDT) Phosphorus 4.2 2.5 - 4.5 mg/dL [facility] Blood specimen (specimen) 07/04/2018 2:18 PM EDT 07/04/2018 2:25 PM EDT Narrative Resulting Agency Comment Spec In Lab Cristhian Hameed MD CHEMISTRY ORDERABLES [facility] [place] [address] * (ABNORMAL) Basic Metabolic Panel (non-fasting) (07/04/2018 2:18 PM EDT) Glucose 161 65 - 199 mg/dL [facility] Comment:Diabetes: >=200 mg/d L plus symptoms Blood Urea Nitrogen 56(H) 10 - 20 mg/dL [facility] Creatinine 3.27(H) 0.80 - 1.50 mg/dL [facility] Sodium 143 135 - 145 mmol/L [facility] Potassium 5.5(H) 3.5 - 5.0 mmol/L [facility] Comment: Please note: ??Patients with WBC >100,000 may have falsely elevated Potassium levels. ??For accurate Potassium quantification in these patients send serum separator tube (gold top) for subsequent determinations. ??Contact the Clinical Chemistry Laboratory if there are any questions. Chloride 107 98 - 107 mmol/L [facility] Carbon Dioxide 24 22 - 31 mmol/L [facility] Anion Gap 12 5 - 15 mmol/L [facility] Calcium 8.7 8.5 - 10.5 mg/dL [facility] Est Glomerular Filtration Rate 21(L) >=60 mL/min/1. 73 m?? [facility] Comment: The eGFR was calculated using the CKD-EPI equation. As with all creatinine based estimates of kidney function, eGFR values calculated with the CKD-EPI equation are not accurate in patients with acute kidney failure, extremes of body mass or the acutely ill. [email or web address] eGFR 24(L) >=60 mL/min/1. 73 m?? [facility] Comment: The eGFR was calculated using the CKD-EPI equation. As with all creatinine based estimates of kidney function, eGFR values calculated with the CKD-EPI equation are not accurate in patients with acute kidney failure, extremes of body mass or the acutely ill. [email or web address] [email or web address] CITYnkf Blood specimen (specimen) 07/04/2018 2:18 PM EDT 07/04/2018 2:25 PM EDT Narrative Resulting Agency Comment Spec In Lab Cristhian Hameed MD CHEMISTRY ORDERABLES Performing Organization Address [facility] Co de Phone Number [facility] [place] [address] * (ABNORMAL) Protein/Creatinine Ratio, urine (07/04/2018 2:17 PM EDT) Creatinine, Urine 57 mg/dL [facility] Protein, Urine 132(H) 0 - 12 mg/dL [facility] Protein / Creatinine Ratio, Urine 2.3 ratio [facility] Urine specimen (specimen) 07/04/2018 2:17 PM EDT 07/04/2018 2:26 PM EDT Narrative Resulting Agency Comment Spec In Lab Cristhian Hameed MD URINE ORDERABLES Performing Organization Address City/[facility] Co de Phone Number [facility] [place] [address] documented in this encounter Visit Diagnoses Diagnosis CKD (chronic kidney disease) stage 4, GFR 15-29 ml/min Chronic kidney disease, Stage IV (severe) Anemia, unspecified type Hyperkalemia Hyperpotassemia Hyperlipidemia, unspecified hyperlipidemia type Proteinuria, unspecified type documented in this encounter Care Teams Fire Extinguisher Installer Relationship Specialty Start Date End Date Adeola Villegas APRN PCP - General Family Medicine 3/22/17 4/14/19 documented as of this encounter
--- OUTSIDE RECORDS SUMMARY | 2024-12-05 12:43 | XMS_ITS | Encounter Summary ---
Author Organization [facility] Address [facility] [place] [address] Care Team Providers Care Sand Mill Operator Name Role Phone Bakari Adeola Sanchez APRN Primary Care Provider [phone] Reason for Visit * Consultation (Routine) - Closed Specialty Diagnoses / Procedures Referred By Nader gardiner Referred To Contact Transplant Diagnoses Stage 4 chronic kidney disease Procedures TXP Leelee Sumner MD [facility] [place] [address] Kiel Paulson MD [facility] DR TRANSPLANT [place] [address] Referral ID Status Reason Start Date Expiration Date V isits Requested Visits Authorized [id number] Closed Consult, Test & Treat 04/07/2018 04/07/2019 1 1 Encounter Details Date Type Department Care Team (Latest Contact Info) Description 06/02/2018 9:00 AM EDT Clinical Support [place] [address] Kiel Paulson MD [facility] DR TR[place] [address] Pre-transplant evaluation for kidney transplant Social History Tobacco Use Types Packs/Day Years Used Date Smoking Tobacco: Every Day Cigarettes Smokeless Tobacco: Never Sex and Gender Information Value Date Recorded Sex Assigned at Not on file Gender Identity Not on file Sexual Orientation Not on file documented as of this encounter Progress Notes * Debra Stafford RN - 06/02/2018 9:00 AM EDT Patient: Gerson Bruner Additional Learners: Friend, Melissa The above named attended our 90 min multi disciplinary educational session in which we covered every aspect of transplantation including but not limited to: ?? Comparison to dialysis Types of transplanted kidney organs: DDKtx, LRD and LURDKTx; DCD, DBD, etc. Wait list KDPI/EPTS Wait list management Active vs. Status 7/Inactive Risks - rejection, CV, malignancies, infections, bone and mineral metabolism Benefits - longevity Outcomes -local vs. SRTR data; rates of tx and type, wait list mortality, graft failure and patientmortality Programmatic specialities Medications and their side effects Evaluation and listing [facility] governmental regulations Surgery Complications Hospital stay Discharge and follow up Recipient expectations Patient received green recipient folder containing: ?? A copy of the presentation [facility] Preparing For Kidney or Kidney & Pancreas Transplant booklet Color coded clinic information sheet Most recent Center SRTR data Living Donor Contact information Card Transplant Experience: Starting the Conversation booklet OS Talking about Transplantation pamphlets including: Q&A for transplant Candates about multiple listing and waiting time transfer Q&A for transplant candidates about Kidney allocation OS Facts and Figures The patient was given many opportunities to ask questions to all members of the transplant team throughout the process. The patient acknowledges understanding of the presented materials, and reports that they will ask any questions that arise. documented in this encounter Plan of Treatment Scheduled Referrals Name Type Priority Associated Diagnoses Order Schedule Referral to Transplant Services Outpatient Referral Routine Stage 4 chronic kidney disease Ordered: 04/07/2018 documented as of this encounter Visit Diagnoses Diagnosis Pre-transplant evaluation for kidney transplant Other specified pre-operative examination documented in this encounter Care Teams Sand Mill Operator Relationship Specialty Start Date End Date Adeola Villegas APRN PCP - General Family Medicine 01/13/17 02/05/19 documented as of this encounter
--- OUTSIDE RECORDS SUMMARY | 2024-12-05 12:43 | XMS_ITS | Encounter Summary ---
Author Organization [facility] [place] [address] Care Team Providers Care Consumer Loan Processor Name Role Phone BakariAdeola Laura DUNN Primary Care Provider [phone] Reason for Visit * Auth/Cert Specialty Diagnoses / Procedures Referred By Nader agrdiner Referred To Contact Diagnoses Hyperglycemia HYPERGLYCEMIA Procedures EMERGENCY IPI Referral ID Status Reason Start Date Expiration Date Visits Re quested Visits Authorized [id number] 1 1 Encounter Details Date Type Department Care Team (Latest Contact Info) Description 08/10/2018 3:23 AM EDT - 08/10/2018 4:41 PM EDT Hospital Encounter [address] [id number] Agustin Simon MD [facility] [place] [address] Anders Romero, [place] [address] Hyperkalemia Discharge Disposition: Home Social History Tobacco Use [...] Sign Reading Time Taken Comments Blood Pressure 184/85 08/10/2018 3:50 PM EDT MD aware Pulse 66 08/10/2018 3:31 PM EDT Temperature 36.8 ??C (98.2 ??F) 08/10/2018 3:31 PM ED T Respiratory Rate 16 08/10/2018 3:31 PM EDT Oxygen Saturation 95% 08/10/2018 12:49 PM EDT Inhaled Oxygen Concentration - - Weight 98 kg (216 lb 0.8 oz) 08/10/2018 3:38 AM EDT Height 177.8 cm (5' 10) 08/10/2018 3:38 AM EDT Body Mass Index 31 08/10/2018 3:38 AM EDT documented in this encounter Discharge Summaries * Anders Romero, - 08/10/2018 3:10 PM EDT Discharge Summary Patient Name: Gerson Bruner Patient Age: 52 y.o. Language: Mauritian Race: White Ethnicity: Not nor Admit date: 08/10/2018 Discharge date and time: 08/10/2018 Attending Physician: Karie att. providers found Discharge Physician: Anders Romero DO Follow-up Recommendations for Providers: 1. DM II - patient to monitor his sugars at home. Restarted home dose levemir - may need meal time shortacting as well 2. Uncontrolled HTN - recently started on amlodipine and lisinopril DC due to Hyperkalemia. He is started on hydralazine at this time. Titrate dose as needed. Coreg was avoided due to HR 50s-60s. HCTZ avoided due to his dehydrated presentation. Inpatient Provider Contact Information: For questions regarding this document or issues relating to this hospitalization on the Medical Service, please contact your inpatient physician through the [facility] . Issues afterhours and on weekends will be handled by the Hospitalist staff on-call. Discharge Diagnoses (Hospital Problems) and Secondary Diagnoses (Chronic Problems): Active Hospital Problems Diagnosis ??? Hyperglycemia Resolved Hospital Problems No resolved problems to display. #HHS at OSH due to prednisone #DM II #EFRA on CKD IV #Hyperkalemia #Uncontrolled Hypertension Operations/Major Procedures: Operations: Other Major Procedures: History of Presentation: (Copy per admission h/p) 52 y.o. male with a past medical history of CKD stage IV currently being evaluated for renal transplant, diabetes mellitus type 2, hyperlipidemia and hypertension initially presented to [facility] due to concern of hyperglycemia and EFRA. He was found to have hyperkalemia as well and initially transferredto [facility] ICU for potential initiation of hemodialysis. ?? Patient had a long-standing history of sciatica on the left side. He was admitted to outside hospital over the weekend and was discharged on Wednesday with steroids. Patient continued a prednisone untilthis morning. His PCP ordered labs and call him yesterday evening when his labs showed concerning findings of hyperglycemia, hyperkalemia, worsening creatinine and hyponatremia. At [facility] labs showed WBC 13.97, hemoglobin 9.4, platelet 230 sodium 123, potassium 6.1, creatinine 4.64, BUN 82, blood glucose 1025, calcium 7.3, bicarb 22.8 anion gap of 8.2. ABG showed a pH of 7.27, PCO2 48, PO2 71. EKGshowed peaked T waves. He was given calcium gluconate and started on insulin drip as well as intravenous fluids. Subsequently he was transferred to the ICU at [facility]. On arrival repeat labs showed significant improvement in his blood sugar, resolution of hyperkalemia and improvement in his creatinine. ?? Patient reports that he has not been feeling well for last couple of days and has been tired and fatigued. As per patient appears confused all day yesterday. Patient also has increased urinationand thirst. Patient takes 55 units of Levemir and sometimes missed the doses. He missed Levemir couple of nights ago. He does not take any sliding scale insulin. He does not check his blood sugar regularly but whenever he checks it is mostly under 250. ?? He denies any chest pain, shortness of breath, palpitations, abdominal pain, nausea or vomiting. Denies any dysuria. Denies any diarrhea. He endorses continuous left lower extremity pain due to sciatica. Currently he rates his as 5 out of 10. He denies any use of NSAIDs however takes Tylenol and hyd romorphone. Hospital Course: #HHS at OSH with uncontrolled DM due to recent prednisone administration -patient presented to the OSH with sugars of 1025, calculated Serum Osm of 332, clinically volume depleted and was started on insulin gtt and IVF. Likely in the setting of prednisone for his sciatica. No signs of infection or medication non- compliance. He responded well to treatment. [facility] patient was transitioned to SQ insulin with good effect. He will be DC on his home dose of 55u levemir and his prednisone was DC. He is advised to check fingersticks 2- 3xdaily and call PCP withabnormal sugars. #EFRA on CKD IV #Hyperkalemia -patient with Cr 4.64 at OSH, resolved to his baseline of 3.5 prior to DC. He will follow up with [facility] tomorrow for dialysis access. He is being evaluated for transplant as well. -patient;s K was stable at the time of DC. #uncontrolled HTN Patient reported to have elevated BP of 190/113 after exerting himself. Repeat of 184/85. Patient denies any ARMSTORNG, CP, SOB, abd pain, N/V, weakness. He reports recently elevated BP at home as well. He was started on Amlodipine 10mg QD 3 weeks ago, he was also taken off lisinopril at that time due to hyperkalemia. Given lack of end organ damage, patient is appropriate for outpatient management of his uncontrolled BP. He will be started on hydralazine 25mg TID. He is advised to check his BP 1-2 times daily and keep a log and call his PCP for persistently elevated BP >140/90. Choice of hydralazine was due to recent side effects from lisinopril, borderline bradycardia this admission precluding coreg, and avoiding diuretics due to admission for dehydration. Patient was counselled on monitoring of his sugars as well as BP at home and following up with his PCP as scheduled. Patient and at bedside were receptive to directions and agreeable to the planof care. #Sciatica -PT evaluated the patient to show him home stretches and exercises. This started after an acute strain at home. Stable for independent ambulation. Vital Signs at Discharge: BP: 184/85(MD aware), Heart Rate: 66, Temp: 36.8 ??C (98.2 ??F), Resp: 16, BMI (Calculated): 31 Height: 177.8 cm (5' 10) (08/10/18 0338) Weight: 98 kg (216 lb 0.8 oz) (08/10/18 2744) Physical Exam at discharge: Physical Exam Constitutional: He is oriented to person, place, and time. He appears well- developed and well-nourished. No distress. HENT: Head: Normocephalic and atraumatic. Mouth/Throat: Oropharynx is clear and moist. No oropharyngeal exudate. Eyes: EOM are normal. Pupils are equal, round, and reactive to light. No scleral icterus. Neck: Neck supple. No JVD present. Cardiovascular: Normal rate, regular rhythm and normal heart sounds. Exam reveals no friction rub. No murmur heard. Pulmonary/Chest: Effort normal and breath sounds normal. No respiratory distress. He has no wheezes. He has no rales. Abdominal: Soft. Bowel sounds are normal. He exhibits no distension. There is no tenderness. There is no guarding. Musculoskeletal: Normal range of motion. He exhibits no edema. Lymphadenopathy: He has no cervical adenopathy. Neurological: He is alert and oriented to person, place, and time. No cranial nerve deficit. Coordination normal. Skin: Skin is warm and dry. Capillary refill takes less than 2 seconds. Psychiatric: He has a normal mood and affect. Functional and Cognitive Status: independent Important Studies and Lab Data: No results found. Recent Results (from the past 96 hour(s)) POCT Glucose Collection Time: 08/10/18 3:34 AM Result Value Ref Range POC Glucose 358 (H) 65 - 199 mg/dL Lactate, whole blood, send to lab ([facility] Collection Time: 08/10/18 3:45 AM Result Value Ref Range Lactate WB 2.3 (H) 0.5 - 2.2 mmol/L Prothrombin Time Collection Time: 08/10/18 3:45 AM Result Value Ref Range PT 9.1 (L) 9.4 - 12.5 sec INR 0.8 APTT Collection Time: 08/10/18 3:45 AM Result Value Ref Range PTT 23 (L) 25 - 37 sec Basic Metabolic Panel (non-fasting) Collection Time: 08/10/18 3:45 AM Result Value Ref Range Glucose Lvl 325 (H) 65 - 199 mg/dL BUN 71 (H) 10 - 20 mg/dL Creatinine 3.51 (H) 0.80 - 1.50 mg/dL Sodium 134 (L) 135 - 145 mmol/L Potassium 4.8 3.5 - 5.0 mmol/L Chloride 99 98 - 107 mmol/L CO2 22 22 - 31 mmol/L Anion Gap 13 5 - 15 mmol/L Calcium 8.1 (L) 8.5 - 10.5 mg/dL eGFR 19 (L) >=60 mL/min/1.73 m?? eGFR 22 (L) >=60 mL/min/1.73 m?? Cardiac Enzymes (LEB/CGP) Collection Time: 08/10/18 3:45 AM Result Value Ref Range Troponin-T 0.01 (H) 0.00 - 0.00 ng/mL CK, Total 262 (H) 0 - 200 unit/L Calcium Ionized Whole Blood, JULES Collection Time: 08/10/18 3:45 AM Result Value Ref Range pH Jules 7.33 7.32 - 7.42 ICa Whole Blood 1.16 1.15 - 1.33 mmol/L Magnesium Collection Time: 08/10/18 3:45 AM Result Value Ref Range Magnesium 0.90 0.69 - 1.07 mmol/L Phosphorus Collection Time: 08/10/18 3:45 AM Result Value Ref Range Phosphorus 3.3 2.5 - 4.5 mg/dL Hepatic Function Panel Collection Time: 08/10/18 3:45 AM Result Value Ref Range Total Protein 5.9 (L) 6.1 - 8.0 gm/dL Albumin 3.2 3.2 - 5.2 gm/dL AST 15 0 - 39 unit/L ALT 35 0 - 55 unit/L Alk Phos 90 40 - 120 unit/L Total Bilirubin <0.2 (L) 0.2 - 1.3 mg/dL Bili, Direct <0.1 0.0 - 0.3 mg/dL Hemoglobin A1c Collection Time: 08/10/18 3:45 AM Result Value Ref Range Hemoglobin A1C 10.7 (H) 4.3 - 5.6 % Est Avg Gluc 260 mg/dL Hemogram Collection Time: 08/10/18 3:45 AM Result Value Ref Range WBC 13.4 (H) 4.0 - 9.5 x10(3)/mcL RBC 3.06 (L) 4.58 - 5.54 x10(6)/mcL Hemoglobin 9.0 (L) 13.7 - 16.5 gm/dL Hematocrit 26.3 (L) 40.5 - 48.5 % MCV 85.9 82.9 - 93.1 fL MCH 29.4 27.5 - 32.1 pg MCHC 34.2 32.0 - 35.7 gm/dL Platelets 236 145 - 357 x10(3)/mcL RDWSD 39.0 36.0 - 45.0 fL RDWCV 12.3 11.4 - 13.8 % MPV 12.2 7.6 - 12.9 fL nRBC % Auto 0.0 % nRBC Abs Auto 0.000 0.000 - 0.000 x10(3)/mcL Differential, Automated Collection Time: 08/10/18 3:45 AM Result Value Ref Range Neutrophils % 84.0 % Neutr Abs (ANC) 11.25 (H) 1.70 - 6.10 x10(3)/mcL Lymphocytes % 7.8 % Lymphocytes Abs 1.0 0.9 - 3.2 x10(3)/mcL Monocytes % 7.2 % Monocyte Abs 1.0 (H) 0.3 - 0.9 x10(3)/mcL Eosinophils % 0.3 % Eosinophils Abs 0.0 0.0 - 0.4 x10(3)/mcL Basophils % 0.1 % Basophils Abs 0.0 0.0 - 0.1 x10(3)/mcL Immature Gran % 0.60 % Delmy Gran Abs 0.08 (H) 0.00 - 0.04 x10(3)/mcL Osmolality Collection Time: 08/10/18 3:45 AM Result Value Ref Range Osmolality 318 (H) 275 - 295 mOsm/kg EKG 12 Lead Collection Time: 08/10/18 3:46 AM Result Value Ref Range Ventricular rate 55 BPM Atrial Rate 55 BPM P-R Interval 134 ms QRS Duration 92 ms Q-T Interval 434 ms QTC Calculated (Bezet) 415 ms Calculated P Wendell 53 degrees Calculated R Wendell 34 degrees Calculated T Wendell 36 degrees INTERPRETATION Sinus bradycardia Otherwise normal ECG No previous ECGs available Confirmed by MD ERIKA, WILDER ([id number]) on 08/10/2018 9:51:54 AM Urinalysis with reflex Culture Collection Time: 08/10/18 4:22 AM Result Value Ref Range Glucose UA >=500 (CRIT) Negative mg/dL Protein UA 100 (A) Negative mg/dL Bilirubin UA Negative Negative mg/dL Urobilinogen UA Normal Normal mg/dL pH UA 6.0 5.0 - 8.0 Blood UA Small (A) Negative mg/dL Ketones UA Negative Negative mg/dL Nitrite UA Negative Negative Leukocytes UA Negative Negative mcL Appearance UA Clear Clear Spec [place] UA 1.010 1.002 - 1.030 Color UA Straw Yellow Culture Reflexed No Urinalysis Microscopic Exam Collection Time: 08/10/18 4:22 AM Result Value Ref Range RBC UA <1 0 - 3 /HPF WBC UA <1 0 - 3 /HPF BLOOD GAS 2 VENOUS Collection Time: 08/10/18 4:36 AM Result Value Ref Range pH Jules 7.31 (L) 7.32 - 7.42 pCO2 Jules 48 41 - 51 mmHg pO2 Jules 34 25 - 40 mmHg HCO3 Jules 23.2 mmol/L BE Jules -3.1 mmol/L Hgb Blood Gas 9.6 (L) 13.7 - 16.5 gm/dL O2HB Jules 65.3 % COHB Jules 1.4 % METHB Jules 0.7 <=1.5 % Na Whole Blood 133 (L) 135 - 145 mmol/L K Whole Blood 4.3 3.5 - 5.0 mmol/L ICa Whole Blood 1.12 (L) 1.15 - 1.33 mmol/L CL Whole Blood 104 98 - 107 mmol/L Gluc Whole Bld 249 (H) 65 - 199 mg/dL Lactate WB 1.7 0.5 - 2.2 mmol/L FIO2 Jules 21 % BGas Source Venous Temp Jules 37.0 Celsius POCT Glucose Collection Time: 08/10/18 5:02 AM Result Value Ref Range POC Glucose 247 (H) 65 - 199 mg/dL POCT Glucose Collection Time: 08/10/18 6:37 AM Result Value Ref Range POC Glucose 212 (H) 65 - 199 mg/dL POCT Glucose Collection Time: 08/10/18 8:03 AM Result Value Ref Range POC Glucose 172 65 - 199 mg/dL POCT Glucose Collection Time: 08/10/18 9:42 AM Result Value Ref Range POC Glucose 159 65 - 199 mg/dL Basic Metabolic Panel (non-fasting) Collection Time: 08/10/18 10:22 AM Result Value Ref Range Glucose Lvl 137 65 - 199 mg/dL BUN 68 (H) 10 - 20 mg/dL Creatinine 3.32 (H) 0.80 - 1.50 mg/dL Sodium 141 135 - 145 mmol/L Potassium 4.3 3.5 - 5.0 mmol/L Chloride 106 98 - 107 mmol/L CO2 23 22 - 31 mmol/L Anion Gap 12 5 - 15 mmol/L Calcium 8.2 (L) 8.5 - 10.5 mg/dL eGFR 20 (L) >=60 mL/min/1.73 m?? eGFR 24 (L) >=60 mL/min/1.73 m?? Osmolality Collection Time: 08/10/18 10:22 AM Result Value Ref Range Osmolality 312 (H) 275 - 295 mOsm/kg POCT Glucose Collection Time: 08/10/18 11:49 AM Result Value Ref Range POC Glucose 210 (H) 65 - 199 mg/dL POCT Glucose Collection Time: 08/10/18 3:49 PM Result Value Ref Range POC Glucose 176 65 - 199 mg/dL Pending Studies and Lab Data: none Discharge Conditions/Prognosis: stable Discharge to: home Updated Allergies/ADRs: Allergies Allergen Reactions ??? Clindamycin Swelling. ??? Gabapentin swelling ??? Penicillins Unknown reaction as a child. Immunizations Given this Hospitalization: Immunization History Administered Date(s) Administered ??? Pneumococcal Polyvalent 23 04/15/2001, 09/07/2011 ??? Td, adult 10/30/1996 ??? Tdap Vaccine 05/31/2016 Discharge Medications: Your Medications New Medications Dose Details hydrALAZINE 25 mg Tab Commonly known as: APRESOLINE Take 1 tablet by mouth 3 times daily. 25 mg Quantity: 90 tablet Refills: 3 insulin detemir U-100 Inpn Commonly known as: LEVEMIR Inject 55 Units subcutaneously nightly. Replaces: insulin detemir U-100 Soln 55 Units Quantity: 10 mL Refills: 12 Continued medications, unchanged Dose Details amLODIPine 10 mg Tab Commonly known as: NORVASC Take 1 tablet by mouth daily. 10 mg Quantity: 90 tablet Refills: 3 aspirin 81 mg Tbec Take 81 mg by mouth daily. 81 mg Refills: 0 blood sugar diagnostic strips Strp Commonly known as: ONETOUCH ULTRA TEST 1 each by Other route 2 times daily (before meals). Dx code 250.02 uses insulin 1 each Quantity: 100 each Refills: 11 diaZEPam 2 mg Tab Commonly known as: VALIUM Take 2 mg by mouth 3 times daily. 2 mg Refills: 0 ferrous sulfate 325 mg (65 mg iron) Tbec Take 325 mg by mouth daily. 325 mg Refills: 0 furosemide 40 mg Tab Commonly known as: LASIX Take 1 tablet by mouth daily. 40 mg Quantity: 30 tablet Refills: 12 insulin needles (disposable) 31 gauge x 5/16 Ndle Inject 1 each subcutaneously 2 times daily (before meals). 1 each Quantity: 100 each Refills: 11 lancets Misc Inject 1 each subcutaneously 2 times daily (before meals). Dx code 250.02 uses insulin 1 each Quantity: 100 each Refills: 11 methocarbamol 750 mg Tab Commonly known as: ROBAXIN Take 750 mg by mouth 4 times daily. 750 mg Refills: 0 multivitamin Tab Commonly known as: THERAGRAN Take 1 tablet by mouth daily. 1 tablet Refills: 0 nortriptyline 25 mg Cap Commonly known as: PAMELOR Take 25 mg by mouth nightly. 25 mg Refills: 0 pregabalin 100 mg Cap Commonly known as: LYRICA Take 200 mg by mouth 2 times daily. 200 mg Refills: 0 ranitidine 150 mg Tab Commonly known as: ZANTAC Take 150 mg by mouth 2 times daily. 150 mg Refills: 0 STOPPED Medications insulin detemir U-100 Soln Commonly known as: LEVEMIR Replaced by: insulin detemir U-100 Inpn predniSONE 20 mg Tab Commonly known as: DELTASONE Smoking Status at Discharge: Social History Tobacco Use Smoking Status Former Smoker ??? Packs/day: 0.50 ??? Types: Cigarettes ??? Last attempt to quit: 07/14/2018 ??? Years since quittin.0 Smokeless Tobacco Never Used Instructions Given to Patient at Discharge: Patient Instructions Instructions on Discharge to Home Why you were hospitalized - You came to the hospital due to elevated blood sugars, this was due to prednisone use and dehydration. You were treated with IV fluids and insulin drip at [facility] and then restarted on your long acting insulin after your blood sugars normalized. You tolerated this well. Please resume your insulin regimen at home. Discontinue taking prednisone. You also had elevated BP during this admission. You were continued on amlodipine and started on Hydralazine prior to discharge. Please take this medication 3 times a day. Check your BP at home atleast 1-2 times/daily and keep track of the BP and times of day on a paper. Call your PCP if your BP stays >160/90 to adjust the medication. Bring the BP log to your next PCP appointment. Monitor your blood sugars 2-3x daily for the next few days. If they are trending up, please call your PCP to adjust the dose of your insulin. You should also watch out for low blood sugars. Drink plenty of water to stay hydrated. Please follow up with PCP in 1 week scheduled for 08/16/2018 430PM Call your doctor or seek medical attention if you develop the following - chest pain, shortness of breath, fever, cough, weakness in an arm or leg Activity level - no restrictions Diet - no change in previous diet Driving - as before hospitalization Shower/Bath - permitted Wound Care - none Home Oxygen therapy - none Changes in Your Medications: New Medications: Medication dose changes: Stop these medications: Prednisone Follow-up: Future Appointments Date Time Provider Department Center 08/11/2018 10:00 AM Fiona Puentes [place] [facility] 08/11/2018 11:30 AM Radha Calle PA Leb V Surg [facility] 08/16/2018 9:00 AM Ankur Garcia MD Leb Trans 2M [facility] 08/16/2018 9:45 AM ECG, CARDIOLOGY [facility] 08/16/2018 10:00 AM DOBUTAMINE STRESS [facility] 08/16/2018 1:00 PM Maxine Prieto, RVT [facility] 08/16/2018 2:00 PM PFT TEST PFT [facility] 08/16/2018 2:30 PM TRANSPLANT EVENING ANCHOR [place] Trans 2M [facility] 08/16/2018 3:00 PM [facility] DB XRAY ROOM 1 Xray [facility] PCP appointment 08/16 4:30 PM Your Inpatient Doctor: Anders Romero, DO Your Primary Care Provider: Adeola Villegas, FILING MACHINE OPERATOR [phone] For questions regarding this document or issues relating to this hospitalization on the Medical Service, please contact your inpatient physician through the [facility] [employer] . Issues afterhours and on weekends will be handled by the Hospitalist staff on-call. General Instructions None Future Appointments and Orders Future Appointments and Orders Future Appointments Provider Department Dept Phone 08/16/2018 9:00 AM Ankur Garcia MD Solid Organ Transplant at [facility] [phone] 08/16/2018 9:45 AM ECG, CARDIOLOGY Non-Invasive Cardiology Lab [facility] [phone] 08/16/2018 10:00 AM DOBUTAMINE STRESS Non-Invasive Cardiology Lab [place] [phone] Do not eat or drink anything for 3 hours before your test. 08/16/2018 1:00 PM Maxine Prieto, RVT Vascular Lab at [place] [address] 08/16/2018 2:00 PM PFT TEST Pulmonology at [place] [address] 08/16/2018 2:30 PM TRANSPLANT EVENING ANCHOR Solid Organ Transplant at [place] [address] 08/16/2018 3:00 PM MH DB XRAY ROOM 1 XRay at [place] [address] Please go to Clinical Administrative Coordinator Area 3L ([facility] Location). Discharge References/Attachments HYPERGLYCEMIA: GENERAL INFO (BARBADIAN) DIABETES: INSULIN PENS: GENERAL INFO (BARBADIAN) Click refresh button immediately prior to signing DCS to ensure all marti are updated. documented in this encounter Discharge Instructions * Patient Instructions* Anders Romero DO - 08/10/2018 2:59 PM EDT Instructions on Discharge to Home Why you were hospitalized - You came to the hospital due to elevated blood sugars, this was due to prednisone use and dehydration. You were treated with IV fluids and insulin drip at [facility] and then restarted on your long acting insulin after your blood sugars normalized. You tolerated this well. Please resume your insulin regimen at home. Discontinue taking prednisone. You also had elevated BP during this admission. You were continued on amlodipine and started on Hydralazine prior to discharge. Please take this medication 3 times a day. Check your BP at home atleast 1-2 times/daily and keep track of the BP and times of day on a paper. Call your PCP if your BP stays >160/90 to adjust the medication. Bring the BP log to your next PCP appointment. Monitor your blood sugars 2-3x daily for the next few days. If they are trending up, please call your PCP to adjust the dose of your insulin. You should also watch out for low blood sugars. Drink plenty of water to stay hydrated. Please follow up with PCP in 1 week scheduled for 08/16/2018 430PM Call your doctor or seek medical attention if you develop the following - chest pain, shortness of breath, fever, cough, weakness in an arm or leg Activity level - no restrictions Diet - no change in previous diet Driving - as before hospitalization Shower/Bath - permitted Wound Care - none Home Oxygen therapy - none Changes in Your Medications: New Medications: Medication dose changes: Stop these medications: Prednisone Follow-up: Future Appointments Date Time Provider Department Center 08/11/2018 10:00 AM Fiona Puentes [place] [facility] 08/11/2018 11:30 AM Radha Calle PA Leb [facility] Surg [facility] 08/16/2018 9:00 AM Ankur Garcia MD Leb Trans 2M [facility] 08/16/2018 9:45 AM ECG, CARDIOLOGY [facility] 08/16/2018 10:00 AM DOBUTAMINE STRESS [facility] 08/16/2018 1:00 PM Maxine Prieto, RVT [facility] LAB [facility] 08/16/2018 2:00 PM PFT TEST PFT [facility] 08/16/2018 2:30 PM TRANSPLANT EVENING ANCHOR Leb Trans 2M [facility] 08/16/2018 3:00 PM [facility] DB XRAY ROOM 1 Xray [facility] PCP appointment 08/16 4:30 PM Your Inpatient Doctor: Anders Romero DO Your Primary Care Provider: Adeola Villegas, FILING MACHINE OPERATOR [phone] For questions regarding this document or issues relating to this hospitalization on the Medical Service, please contact your inpatient physician through the [facility] [employer] . Issues afterhours and on weekends will be handled by the Hospitalist staff on-call. * Attachments The following attachments cannot be sent through Care Everywhere. * HYPERGLYCEMIA: GENERAL INFO (BARBADIAN) * DIABETES: INSULIN PENS: GENERAL INFO (BARBADIAN) documented in this encounter Medications at Time of Discharge Medication Sig Dispensed Refills Start Date End Date blood sugar diagnostic strips (ONETOUCH ULTRA TEST) [...] daily. 30 tablet 12 06/13/2015 10/24/2018 Insulin Henry, Disposable, 31 X 5/16 Needle Inject 1 each subcutaneously 2 times daily (before meals). 100 each 11 07/19/2014 02/25/2024 documented as of this encounter Progress Notes * Kaye Landeros RN - 08/10/2018 4:41 PM EDT Diabetes Clinical Nurse Specialist Met with pt and prior to D/C. Pt was admitted in transfer from [facility] for [facility]. Mr. Bruner reportsthat his has not been checking his BG's as often as he knows he should. The cost of the test stripsis one limiting factor. In addition, pt takes only basal insulin. Encouraged pt to request that his prescription be written for more than two test strips daily. Provided a new meter and some test strip samples. Advised pt to f/u with his PCP to consider the addition of meal-time and correction bolus insulin. Pt's asks about a continuous glucose sensor. Explained that these are now approved for use without the need for confirmation with a BG test. * Josefa Barrientos RN - 08/10/2018 4:36 PM EDT Patient discharged home, high bp noted, MD notified and at bedside, hydralazine administered as prescribed. MD oked patient to be discharged with high bp. paste mixer notified. IV removed prior to d/c.AVS gone over with patient, patient and verbalized understanding of AVS. Educated patient on importance of checking BP and BG at home. Patient ambulated off unit with , declined staff escortoff unit. * Anders Romero DO - 08/10/2018 3:08 PM EDT Hospital Medicine - Attending Day of Discharge Documentation Discharge diagnosis Active Hospital Problems Diagnosis ??? Hyperglycemia Resolved Hospital Problems No resolved problems to display. Secondary Issues Active Non-Hospital Problems Diagnosis ??? Anemia ??? Pre-transplant evaluation for CKD (chronic kidney disease) ??? Essential hypertension ??? CKD (chronic kidney disease) stage 4, GFR 15-29 ml/min ??? CKD (chronic kidney disease) stage 3, GFR 30-59 ml/min ??? Proteinuria ??? Elevated blood pressure ??? Anemia of chronic renal failure, stage 4 (severe) ??? Hyperkalemia ??? Essential hypertension with goal blood pressure less than 130/80 ??? Diabetes mellitus ??? Hyperlipidemia ??? Herniation of lumbar intervertebral disc with radiculopathy ??? Type II or unspecified type diabetes mellitus with neurological manifestations, uncontrolled(250.62) ??? Leg cramps ??? Cigarette smoker ??? Unspecified hearing loss I have personally seen and examined the patient and they are ready for discharge. Select the appropriate statement that describes your involvement and care and omit the other: I spent >30 minutes (Day of Discharge Code 78767) involved in the final examination of the patient, discussion of the hospital stay, instructions for continuing care to all relevant caregivers, and preparation of discharge records, prescriptions and referral forms. Plans ? Discharge to home ? Follow-up scheduled with PCP ? Please see the Discharge Summary for complete details of any medication changes and additional plans. Your Medications New Medications Dose Details hydrALAZINE 25 mg Tab Commonly known as: APRESOLINE Take 1 tablet by mouth 3 times daily. 25 mg Quantity: 90 tablet Refills: 3 insulin detemir U-100 Inpn Commonly known as: LEVEMIR Inject 55 Units subcutaneously nightly. Replaces: insulin detemir U-100 Soln 55 Units Quantity: 10 mL Refills: 12 Continued medications, unchanged Dose Details amLODIPine 10 mg Tab Commonly known as: NORVASC Take 1 tablet by mouth daily. 10 mg Quantity: 90 tablet Refills: 3 aspirin 81 mg Tbec Take 81 mg by mouth daily. 81 mg Refills: 0 blood sugar diagnostic strips Strp Commonly known as: ONETOUCH ULTRA TEST 1 each by Other route 2 times daily (before meals). Dx code 250.02 uses insulin 1 each Quantity: 100 each Refills: 11 diaZEPam 2 mg Tab Commonly known as: VALIUM Take 2 mg by mouth 3 times daily. 2 mg Refills: 0 ferrous sulfate 325 mg (65 mg iron) Tbec Take 325 mg by mouth daily. 325 mg Refills: 0 furosemide 40 mg Tab Commonly known as: LASIX Take 1 tablet by mouth daily. 40 mg Quantity: 30 tablet Refills: 12 insulin needles (disposable) 31 gauge x 5/16 Ndle Inject 1 each subcutaneously 2 times daily (before meals). 1 each Quantity: 100 each Refills: 11 lancets Misc Inject 1 each subcutaneously 2 times daily (before meals). Dx code 250.02 uses insulin 1 each Quantity: 100 each Refills: 11 methocarbamol 750 mg Tab Commonly known as: ROBAXIN Take 750 mg by mouth 4 times daily. 750 mg Refills: 0 multivitamin Tab Commonly known as: THERAGRAN Take 1 tablet by mouth daily. 1 tablet Refills: 0 nortriptyline 25 mg Cap Commonly known as: PAMELOR Take 25 mg by mouth nightly. 25 mg Refills: 0 pregabalin 100 mg Cap Commonly known as: LYRICA Take 200 mg by mouth 2 times daily. 200 mg Refills: 0 ranitidine 150 mg Tab Commonly known as: ZANTAC Take 150 mg by mouth 2 times daily. 150 mg Refills: 0 STOPPED Medications insulin detemir U-100 Soln Commonly known as: LEVEMIR Replaced by: insulin detemir U-100 Inpn predniSONE 20 mg Tab Commonly known as: DELTASONE documented in this encounter H&P Notes * Ray Paris - 08/10/2018 5:48 AM EDT Inpatient Hospital Medicine - Admission Note Problem List: Active Hospital Problems Diagnosis ??? Hyperglycemia Resolved Hospital Problems No resolved problems to display. Active Non-Hospital Problems Diagnosis ??? Anemia ??? Pre-transplant evaluation for CKD (chronic kidney disease) ??? Essential hypertension ??? CKD (chronic kidney disease) stage 4, GFR 15-29 ml/min ??? CKD (chronic kidney disease) stage 3, GFR 30-59 ml/min ??? Proteinuria ??? Elevated blood pressure ??? Anemia of chronic renal failure, stage 4 (severe) ??? Hyperkalemia ??? Essential hypertension with goal blood pressure less than 130/80 ??? Diabetes mellitus ??? Hyperlipidemia ??? Herniation of lumbar intervertebral disc with radiculopathy ??? Type II or unspecified type diabetes mellitus with neurological manifestations, uncontrolled(250.62) ??? Leg cramps ??? Cigarette smoker ??? Unspecified hearing loss ID: 52 y.o. Male presents to [facility] with hyperglucemia History of Present Illness: BEULAH Bruner is a 52 y.o. male with a past medical history of CKD stage IV currently being evaluated for renal transplant, diabetes mellitus type 2, hyperlipidemia and hypertension initially presented to [facility] due to concern of hyperglycemia and EFRA. He was found to have hyperkalemia as well and initially transferred to [facility] ICU for potential initiation of hemodialysis. Patient had a long-standing history of sciatica on the left side. He was admitted to outside hospital over the weekend and was discharged on Wednesday with steroids. Patient continued a prednisone until morning. His PCP ordered labs and call him yesterday evening when his labs showed concerning findings of hyperglycemia, hyperkalemia, worsening creatinine and hyponatremia. At [facility] labs showed WBC 13.97, hemoglobin 9.4, platelet 230 sodium 123, potassium 6.1, creatinine 4.64, BUN 82, blood glucose 1025, calcium 7.3, bicarb 22.8 anion gap of 8.2. ABG showed a pH of 7.27, PCO2 48, PO2 71. EKGshowed peaked T waves. He was given calcium gluconate and started on insulin drip as well as intravenous fluids. Subsequently he was transferred to the ICU at [facility]. On arrival repeat labs showed significant improvement in his blood sugar, resolution of hyperkalemia and improvement in his creatinine. Patient reports that he has not been feeling well for last couple of days and has been tired and fatigued. As per patient appears confused all day yesterday. Patient also has increased urinationand thirst. Patient takes 55 units of Levemir and sometimes missed the doses. He missed Levemir couple of nights ago. He does not take any sliding scale insulin. He does not check his blood sugar regularly but whenever he checks it is mostly under 250. He denies any chest pain, shortness of breath, palpitations, abdominal pain, nausea or vomiting. Denies any dysuria. Denies any diarrhea. He endorses continuous left lower extremity pain due to sciatica. Currently he rates his as 5 out of 10. He denies any use of NSAIDs however takes Tylenol and hyd romorphone. Review of Systems: Review of Systems 10 point review of system is negative other than HPI Past Medical and Surgical History: Past Medical History: Diagnosis Date ??? Diabetes mellitus ??? Herniation of lumbar intervertebral disc with radiculopathy 08/16/2015 L4-5 left History reviewed. No pertinent surgical history. Prior To Admission Medications: Medications Prior to Admission Medication Sig Dispense Refill Last Dose ??? diaZEPam (VALIUM) 2 mg Tablet Take 2 mg by mouth 3 times daily. 0 08/09/2018 at Unknown time ??? predniSONE (DELTASONE) 20 mg Tablet Take 40 mg by mouth daily. 0 08/09/2018 at Unknown time ??? methocarbamol (ROBAXIN) 750 mg Tablet Take 750 mg by mouth 4 times daily. 0 08/09/2018 at Unknown time ??? ranitidine (ZANTAC) 150 mg Tablet Take 150 mg by mouth 2 times daily. 0 08/09/2018 at Unknown time ??? nortriptyline (PAMELOR) 25 mg Capsule Take 25 mg by mouth nightly. 0 08/09/2018 at Unknown time ??? amLODIPine (NORVASC) 10 mg Tablet Take 1 tablet by mouth daily. 90 tablet 3 08/09/2018 at Unknown time ??? insulin detemir U-100 (LEVEMIR) Solution Inject 55-60 Units subcutaneously nightly. 08/09/2018 at Unknown time ??? ferrous sulfate 325 mg (65 mg iron) Tablet, Delayed Release (E.C.) Take 325 mg by mouth daily. 08/09/2018 at Unknown time ??? aspirin 81 mg Tablet, Delayed Release (E.C.) Take 81 mg by mouth daily. 08/09/2018 at Unknown time ??? pregabalin (LYRICA) 100 mg Capsule Take 200 mg by mouth 2 times daily. 08/09/2018 at Unknown time ??? multivitamin (THERAGRAN) Tablet Take 1 tablet by mouth daily. 08/09/2018 at Unknown time ??? furosemide (LASIX) 40 mg Tablet Take 1 tablet by mouth daily. 30 tablet 12 08/09/2018 at Unknown time ??? Insulin Henry, Disposable, 31 X 03/09 Needle Inject 1 each subcutaneously 2 times daily (before meals). 100 each 08/09/2018 at Unknown time ??? Blood Sugar Diagnostic (ONE TOUCH ULTRA TEST) Strip 1 each by Other route 2 times daily (beforemeals). Dx code 250.02 uses insulin 100 each 08/09/2018 at Unknown time ??? Lancets Misc Inject 1 each subcutaneously 2 times daily (before meals). Dx code 250.02 uses insulin 100 each 08/09/2018 at Unknown time Allergies: Allergies Allergen Reactions ??? Clindamycin Swelling. ??? Gabapentin swelling ??? Penicillins Unknown reaction as a child. Family History: Family History Problem Relation Age of Onset ??? Diabetes Mother ??? Cancer Father ??? Diabetes Paternal Grandmother ??? Heart Disease Paternal Grandfather Social History and Habits: Social History Socioeconomic History ??? Marital status: [...] on file Tobacco Use ??? Smoking status: Current Every Day Smoker Packs/day: 0.50 Types: Cigarettes ??? Smokeless tobacco: Never Used Substance and Sexual Activity ??? Alcohol use: No Frequency: Never ??? Drug use: Yes Types: Marijuana ??? Sexual activity: Not on file Other Topics Concern ??? Not on file Social History Narrative ??? Not on file Immunizations: Immunization History Administered Date(s) Administered ??? Pneumococcal Polyvalent 23 04/15/2001, 09/07/2011 ??? Td, adult 10/30/1996 ??? Tdap Vaccine 05/31/2016 Physical Exam: Last Set of Vitals and range of vitals over past 24 hours: Last value Range last 24 hrs Temperature Temp: 36.7 ??C (98.1 ??F) Temp: [36.7 ??C (98.1 ??F)] Heart Rate Heart Rate: 58 Heart Rate: [58-60] Blood Pressure BP: 177/73 BP: (177)/(73) Respiratory Rate Resp: 16 Resp: [16-18] SpO2 SpO2: 95 % SpO2: [94 %-96 %] Body mass index is 31 kg/m??. Physical Exam Nursing notes reviewed General: Patient is in no acute distress, slightly slow to respond HEENT: Dry oral mucosa PERRLA, EOMI Neck: Supple Lungs: Clear Heart: Regular rate and rhythm, no murmur or bruit Abdomen: Nontender, nondistended Skin: No rash Neuro: Grossly intact Muscle skeletal: No deformity, trace edema Laboratory (Last 24 Hours): Recent Results (from the past 24 hour(s)) POCT Glucose Result Value Ref Range POC Glucose 358 (H) 65 - 199 mg/dL Lactate, whole blood, send to lab (Leb/CGP) Result Value Ref Range Lactate WB 2.3 (H) 0.5 - 2.2 mmol/L Prothrombin Time Result Value Ref Range PT 9.1 (L) 9.4 - 12.5 sec INR 0.8 APTT Result Value Ref Range PTT 23 (L) 25 - 37 sec Basic Metabolic Panel (non-fasting) Result Value Ref Range Glucose Lvl 325 (H) 65 - 199 mg/dL BUN 71 (H) 10 - 20 mg/dL Creatinine 3.51 (H) 0.80 - 1.50 mg/dL Sodium 134 (L) 135 - 145 mmol/L Potassium 4.8 3.5 - 5.0 mmol/L Chloride 99 98 - 107 mmol/L CO2 22 22 - 31 mmol/L Anion Gap 13 5 - 15 mmol/L Calcium 8.1 (L) 8.5 - 10.5 mg/dL eGFR 19 (L) >=60 mL/min/1.73 m?? eGFR 22 (L) >=60 mL/min/1.73 m?? Cardiac Enzymes (LEB/CGP) Result Value Ref Range Troponin-T 0.01 (H) 0.00 - 0.00 ng/mL CK, Total 262 (H) 0 - 200 unit/L Calcium Ionized Whole Blood, JULES Result Value Ref Range pH Jules 7.33 7.32 - 7.42 ICa Whole Blood 1.16 1.15 - 1.33 mmol/L Magnesium Result Value Ref Range Magnesium 0.90 0.69 - 1.07 mmol/L Phosphorus Result Value Ref Range Phosphorus 3.3 2.5 - 4.5 mg/dL Hepatic Function Panel Result Value Ref Range Total Protein 5.9 (L) 6.1 - 8.0 gm/dL Albumin 3.2 3.2 - 5.2 gm/dL AST 15 0 - 39 unit/L ALT 35 0 - 55 unit/L Alk Phos 90 40 - 120 unit/L Total Bilirubin <0.2 (L) 0.2 - 1.3 mg/dL Bili, Direct <0.1 0.0 - 0.3 mg/dL Hemoglobin A1c Result Value Ref Range Hemoglobin A1C 10.7 (H) 4.3 - 5.6 % Est Avg Gluc 260 mg/dL Hemogram Result Value Ref Range WBC 13.4 (H) 4.0 - 9.5 x10(3)/mcL RBC 3.06 (L) 4.58 - 5.54 x10(6)/mcL Hemoglobin 9.0 (L) 13.7 - 16.5 gm/dL Hematocrit 26.3 (L) 40.5 - 48.5 % MCV 85.9 82.9 - 93.1 fL MCH 29.4 27.5 - 32.1 pg MCHC 34.2 32.0 - 35.7 gm/dL Platelets 236 145 - 357 x10(3)/mcL RDWSD 39.0 36.0 - 45.0 fL RDWCV 12.3 11.4 - 13.8 % MPV 12.2 7.6 - 12.9 fL nRBC % Auto 0.0 % nRBC Abs Auto 0.000 0.000 - 0.000 x10(3)/mcL Differential, Automated Result Value Ref Range Neutrophils % 84.0 % Neutr Abs (ANC) 11.25 (H) 1.70 - 6.10 x10(3)/mcL Lymphocytes % 7.8 % Lymphocytes Abs 1.0 0.9 - 3.2 x10(3)/mcL Monocytes % 7.2 % Monocyte Abs 1.0 (H) 0.3 - 0.9 x10(3)/mcL Eosinophils % 0.3 % Eosinophils Abs 0.0 0.0 - 0.4 x10(3)/mcL Basophils % 0.1 % Basophils Abs 0.0 0.0 - 0.1 x10(3)/mcL Immature Gran % 0.60 % Delmy Gran Abs 0.08 (H) 0.00 - 0.04 x10(3)/mcL Urinalysis with reflex Culture Result Value Ref Range Glucose UA >=500 (CRIT) Negative mg/dL Protein UA 100 (A) Negative mg/dL Bilirubin UA Negative Negative mg/dL Urobilinogen UA Normal Normal mg/dL pH UA 6.0 5.0 - 8.0 Blood UA Small (A) Negative mg/dL Ketones UA Negative Negative mg/dL Nitrite UA Negative Negative Leukocytes UA Negative Negative mcL Appearance UA Clear Clear Spec [place] UA 1.010 1.002 - 1.030 Color UA Straw Yellow Culture Reflexed No Urinalysis Microscopic Exam Result Value Ref Range RBC UA <1 0 - 3 /HPF WBC UA <1 0 - 3 /HPF POCT Glucose Result Value Ref Range POC Glucose 247 (H) 65 - 199 mg/dL Other Studies: EKG -peak T waves and nonspecific ST changes on outside EKG. Repeat EKG showed improvement. Assessment: Gerson Bruner is a 52 y.o. male with a past medical history of CKD stage IV currently being evaluated for renal transplant, diabetes mellitus type 2, hyperlipidemia and hypertension initially presented to [facility] due to concern of hyperglycemia and EFRA. He was found to have hyperkalemia as well and initially transferred to [facility] ICU for potential initiation of hemodialysis. He was treated with intravenous fluids and insulin drip. Repeat labs showed improvement in his blood sugar, potassium, creatinine and sodium. 1. Hyperosmotic hyperglycemic state: Blood sugar was 1200 on presentation to outside hospital. Thisis in setting of steroid-induced hyperglycemia from recent use due to sciatica. Took last dose of steroids yesterday morning. We will stop steroids. Currently he is on insulin drip however blood sugar is 250. So will also stop insulin drip and start him on sliding scale insulin every 4-hour, moderate intensity and resume his Levemir at 55 units tonight. We will also consider involving diabetic team. Will check hemoglobin A1c. 2. Acute kidney injury on CKD stage IV: Due to dehydration from hyperglycemia. Creatinine improved significantly after resuscitation. Now almost back to baseline. We will continue to monitor kidney functions and involve nephrology if needed. We will continue intravenous fluids normal saline at 150 mL/h as patient is dry. Will reassess the fluid status later today. 3. Hyperkalemia: In setting of acute kidney injury. Now resolved. 4. Pseudohyponatremia: Due to hypoglycemia. Now resolved as well. 5. Hypertension: We will resume amlodipine and add intravenous as needed antihypertensives. 6. Elevated troponins: Setting of acute kidney injury. No significant ST or T wave changes. No concern of ACS. Will place him on telemetry. Plan: Admit to hospital medicine Transfer out of ICU to regular Transitioning insulin drip to sliding scale insulin Globin A1c Remote telemetry monitoring Daily basic labs repeat lactic acid Holding Lasix for now since being fluid resuscitated Consider diabetic management team consult Physical Therapy referral DVT Prophylaxis-subcu heparin If currently a smoker - advised about smoking cessation and will provide smoking cessation materialand support. Pneumovax and Influenza Immunizations given as needed. Discussed Advanced Directives and Code Status. The patient wishesto be Full Code. A copy of this document will be sent to the patient's Primary Care Physician and/or Referring Physician. Ray Paris MD 08/10/2018 documented in this encounter Miscellaneous Notes * Plan of Care - Anders Romero, - 08/10/2018 4:24 PM EDT Patient reported to have elevated BP of 190/113 after exerting himself. Repeat of 184/85. Patient denies any ARMSTRONG, CP, SOB, abd pain, N/V, weakness. He reports recently elevated BP at home as well. He was started on Amlodipine 10mg QD 3 weeks ago, he was also taken off lisinopril at that time due to hyperkalemia. Given lack of end organ damage, patient is appropriate for outpatient management of his uncontrolled BP. He will be started on hydralazine 25mg TID. He is advised to check his BP 1-2 times daily and keep a log and call his PCP for persistently elevated BP >140/90. Choice of hydralazine was due to recent side effects from lisinopril, borderline bradycardia this admission precluding coreg, and avoiding diuretics due to admission for dehydration. Patient was counselled on monitoring of his sugars as well as BP at home and following up with his PCP as scheduled. Patient and at bedside were receptive to directions and agreeable to the planof care. Anders Romero DO Internal Medicine 08/10/2018 4:30 PM * Plan of Care - Bebeto Ilene Sanchez, PT - 08/10/2018 2:05 PM EDT Physical Therapy Treatment Number PT: 1(Evaluation ) Living Environment Comment: Gerson lives with his in a single story home with 5-6 NATE with a rail. 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 History of LBP + radiculopathy and is s/p discectomy and single level fusion perpt report. Now with returned LBP following isolated incident when lifting/pushing when spine in trunk rotation. Since that time, pt notes radiating sx from low back (~L4) to proximal hamstring, then from knee to foot (sparing posterior aspect of thigh) Subjective: Patient/Family/Caregiver Comments/Observations: I am a little stiff from not moving inthe past day or so. Objective: Please see associated flowsheet data in chart below for objective data and specifics of today???s session. Assessment: Pt seen for Physical Therapy evaluation this afternoon to assist with discharge planning and presents with pain, reduced functional strength, impaired coordination, altered sensation, reduced functional activity tolerance, and impaired dynamic standing balance. Pt demonstrated 3-4 episodes of loss of balance with ambulation (without use of an assistive device), requiring a few steps for pt to correct. Pt does not require external assist to correct his imbalance and does verbalize / demonstrate understanding of balance impairment present at this time. He was issued a straight cane to improve dynamic stability and educated on 3 point gait pattern. Pt and his were educated on D/C safety recommendations including supervision on stairs and when in bathroom, use of cane for allupright mobility, and placement of low-lighting along pathway to bathroom to improve dynamic safetywhen up to restroom overnight. Patient is cleared at this time from PT perspective for D/C home when medically ready. Precautions Comments: Full code; High risk for skin breakdown; At risk to fall Staff Mobility Recommendations: ?? (S) using straight cane Plan: Therapy Frequency: (P) evaluation only Discharge Recommendations: Anticipated Equipment Needs at Discharge: (P) (none - straight cane fitted / issued this date per this writ) Anticipated Discharge Disposition: (P) home with assist TIME IN / OUT: 14:05 - 14:35 08/10/18 1405 Rehab Evaluation Document Type evaluation Total Evaluation Minutes, Physical Therapy 30 (mod complexity ) Patient Effort good Symptoms Noted During/After Treatment fatigue General Information Patient Profile Review yes Patient/Family/Caregiver Comments/Observations I am a little stiff from not moving in the past dayor so. General Observations of Patient Pt seated at EOB upon arrival, supportive at bedside. Pertinent History of Current Problem Gerson Bruner is a 52 y.o. right handed male with PMH including CKD stage IV currently being evaluated for renal transplant, DM type 2, HLD, HTN, and L4-5 (L)disc herniation with radiculopathy admitted on 08/10/[address] Anders Romero, for management of hyperosmotic hyperglycemic state. Precautions Comments Full code; High risk for skin breakdown; At risk to fall Treatment Number PT 1 (Evaluation ) Living Environment Patient population Adult Living Environment Living Environment Comment Gerson lives with his in a single story home with 5-6 NATE with a rail. He notes that bathroom includes a tub shower. 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 History of LBP + radiculopathy and is s/p discectomy and single level fusion per pt report. Now with returned LBP following isolated incident when lifting/pushing when spine in trunk rotation. Since that time, pt notes radiating sx from low back (~L4) to proximal hamstring, then from knee to foot (sparing posterior aspect of thigh) Self-Care Dominant Hand right Pain Scale/Rating Pain Assessment Scale Numbers (Numeric Rating Pain Scale) Pain Level (4-7) ROM (Range of Motion) Additional Documentation (trunk limited, otherwise WFL ) MMT (Manual Muscle Testing) Additional Documentation (weakness (R)quads, (L)hamstring) Muscle Tone Assessment Additional Documentation (tone WNL; Coordination poor (L), fair (R) ) Mobility Assessment/Training Additional Documentation Transfer Assessment/Treatment (Group);Gait Assessment/Treatment (Group);Stairs Assessment/Treatment (Group) Transfer Assessment/Treatment [place] (Sit-Stand Transfers) supervision required [place] (Stand-Sit Transfers) supervision required [id number] Assistive Device (Transfers) (initially with no AD, then rehearsed using SC) Comment (Transfers) Performed with increased time, use of single UE support during transition sit<>stand. Gait Assessment/Treatment [place] (Gait) supervision required Assistive Device (Gait) (initially with no AD, then rehearsed using SC) Distance in Feet (Gait) 250 Gait Pattern Analysis swing-through gait Deviations (Gait) (tendency for loss of balance to (L) requiring 2-3 steps ) Impairments (Gait) balance impaired;strength decreased;pain;flexibility decreased;sensation decreased;coordination impaired Comment (Gait) Performed with increased time and pt demonstrated 2-3 events of mild LOB, requiring several steps to correct. He demonstrates awareness of his balance impairment present at this time and did not require external assist to correct LOB. Stairs Assessment/Treatment Number of Stairs (Stairs) 5 Handrail Location (Stairs) left side (ascending) [place] (Stairs) supervision required Technique (Stairs) [id number] (ascending);[id number] (descending) Comment (Stairs) performed with increased time [facility] Basic Mobility [facility] Mobility Completed? Yes How much difficulty does the patient currently have turning over in bed (including adjusting bedclothes, sheets and blankets)? 3 - A Little How much difficulty does the patient currently have sitting down on and standing up from a chair without arms (e.g. wheelchair, bedside commode etc. )? 3 - A Little How much difficulty does the patient currently have moving from lying to back to sitting on the side of the bed? 3 - A Little How much help from another person does the patient currently need moving to and from a bed to a chair (including a wheelchair)? 4 - None How much help from another person does the patient currently need to walk in the hospital room? 3 -A Little How much help from another person does the patient currently need clmibing 3-5 steps with a railing? 3 - A Little [facility] Basic Mobility Raw Score 19 Basic Mobility Standardized T-Scale Score 45.44 Basic Mobility CMS 0-100% 41.77 [facility] Basic Mobility CMS Modifier CK Clinical Impression Therapy Frequency evaluation only Anticipated Equipment Needs at Discharge (none - straight cane fitted / issued this date per this writ) Anticipated Discharge Disposition home with assist 2017 PT Evaluation Code Rationale: ?? Diagnosis & Pertinent Co-Morbidities, personal factors, and present illness affecting Plan of Care: Patient Active Problem List Diagnosis Code ??? [...] ??? Proteinuria R80.9 ??? Elevated blood pressure [id number] ??? Essential hypertension I10 ??? CKD (chronic kidney disease) stage 4, GFR 15-29 ml/min N18.4 ??? Pre-transplant evaluation for CKD (chronic kidney disease) Z01.818 ??? Anemia D64.9 ??? Hyperglycemia R73.9 ?? List of Factors: 0 1-2 3+ X ?? Examination of body system impairments, functional limitations and behaviors, that result in participation restrictions. Addressing 1-2 elements Addressing 3 + elements Addressing 4 + elements X ?? Clinical presentation: See assessment above. Stable/Uncomplicated Evolving/Flucuating Symtoms Unstable/Unpredictable X ?? Clinical decision making of moderate complexity based on pt's functional performance as outlinedin this evaluation. G-Code: Mobility Status Modifier CURRENT CK - At least 40 percent but less than 60 percent impaired, limited or restricted PROJECTED CK - At least 40 percent but less than 60 percent impaired, limited or restricted DISCHARGE CK - At least 40 percent but less than 60 percent impaired, limited or restricted G Code Rationale: This G-Code and these disability modifiers were selected as the primary therapy goal based upon the patient's evaluation including the following functional test(s) [facility] - ActivityMeasure for Post-Acute Care. Current ability measures, co-morbidities and clinical judgement were also used to select the disability modifier. This Patient's current G-Code functional level is 41.77%impaired. ILENE TATE, PT, DPT Pager: [phone] Inpatient Physical Therapy documented in this encounter Plan of Treatment Not on file documented as of this encounter Procedures Procedure Name Priority Date/Time Associated Diagnosis Comments WILLOW MACHINE OPERATOR SCAN 08/11/2018 12:00 AM EDT POCT GLUCOSE Routine 08/10/2018 3:49 PM EDT POCT GLUCOSE Routine 08/10/2018 11:49 AM EDT OSMOLALITY Routine 08/10/2018 10:22 AM EDT BASIC METABOLIC PANEL STAT 08/10/2018 10:22 AM EDT POCT GLUCOSE Routine 08/10/2018 9:42 AM EDT POCT GLUCOSE Routine 08/10/2018 8:03 AM EDT POCT GLUCOSE Routine 08/10/2018 6:37 AM EDT POCT GLUCOSE Routine 08/10/2018 5:02 AM EDT BLOOD GAS VENOUS POC Routine 08/10/2018 4:36 AM EDT URINALYSIS MICROSCOPIC EXAM STAT 08/10/2018 4:22 AM EDT URINALYSIS WITH REFLEX CULTURE STAT 08/10/2018 4:22 AM EDT EKG 12-LEAD STAT 08/10/2018 3:46 AM EDT Hyperkalemia CALCIUM IONIZED WHOLE BLOOD, JULES STAT 08/10/2018 3:45 AM EDT HEMOGRAM STAT 08/10/2018 3:45 AM EDT DIFFERENTIAL, AUTOMATED STAT 08/10/2018 3:45 AM EDT CARDIAC ENZYMES ([facility]/CGP) STAT 08/10/2018 3:45 AM EDT LACTATE, WHOLE BLOOD STAT 08/10/2018 3:45 AM EDT APTT STAT 08/10/2018 3:45 AM EDT PROTHROMBIN TIME STAT 08/10/2018 3:45 AM EDT CBC (WITH DIFF) STAT 08/10/2018 3:45 AM EDT PHOSPHORUS STAT 08/10/2018 3:45 AM EDT OSMOLALITY STAT 08/10/2018 3:45 AM EDT MAGNESIUM STAT 08/10/2018 3:45 AM EDT HEMOGLOBIN A1C Routine 08/10/2018 3:45 AM EDT HEPATIC FUNCTION PANEL Routine 08/10/2018 3:45 AM EDT BASIC METABOLIC PANEL STAT 08/10/2018 3:45 AM EDT POCT GLUCOSE Routine 08/10/2018 3:34 AM EDT documented in this encounter Results * SCAN DOC: WILLOW MACHINE OPERATOR (08/11/2018 12:00 AM EDT) Anatomical Region Laterality Modality Other Narrative 08/11/2018 12:00 AM EDT Ordered by an unspecified provider. Scanning Provider MEDIA MGR SCAN EXT O RDR/RSLT * POCT Glucose (08/10/2018 3:49 PM EDT) [facility] Signature Glucose, POC 176 65 - 199 mg/dL [facility] Comment: Supplemental ranges: <140 mg/dL before meals <180 mg/dL all other times of the day Blood specimen (specimen) 08/10/2018 3:49 PM EDT 08/10/2018 3:49 PM EDT Anders Romero DO POINT OF CARE TEST O RDERABLES Performing Organization Address [facility]/ZIP Co de Phone Number [facility] [place] [place] [address] * (ABNORMAL) POCT Glucose (08/10/2018 11:49 AM EDT) Glucose, POC 210(H) 65 - 199 mg/dL [facility] Comment: Supplemental ranges: <140 mg/dL before meals <180 mg/dL all other times of the day Blood specimen (specimen) 08/10/2018 11:49 AM EDT 08/10/2018 11:49 AM EDT Anders Romero DO POINT OF CARE TEST O RDERABLES Performing Organization Address [facility] Co de Phone Number [facility] [place] [place] [address] * (ABNORMAL) Osmolality (08/10/2018 10:22 AM EDT) Osmolality 312(H) 275 - 295 mOsm/kg [facility] Blood specimen (specimen) 08/10/2018 10:22 AM EDT 08/10/2018 10:39 AM EDT Narrative Resulting Agency Comment Spec In Lab Anders Romero DO CHEMISTRY ORDERABLES Performing Organization Address [facility] Co de Phone Number [facility] [place] [address] * (ABNORMAL) Basic Metabolic Panel (non-fasting) (08/10/2018 10:22 AM EDT) Glucose 137 65 - 199 mg/dL [facility] Comment:Diabetes: >=200 mg/d L plus symptoms Blood Urea Nitrogen 68(H) 10 - 20 mg/dL [facility] Creatinine 3.32(H) 0.80 - 1.50 mg/dL [facility] Sodium 141 135 - 145 mmol/L [facility] Potassium 4.3 3.5 - 5.0 mmol/L [facility] Comment: Please note: ??Patients with WBC >100,000 may have falsely elevated Potassium levels. ??For accurate Potassium quantification in these patients send serum separator tube (gold top) for subsequent determinations. ??Contact the Clinical Chemistry Laboratory if there are any questions. Chloride 106 98 - 107 mmol/L [facility] Carbon Dioxide 23 22 - 31 mmol/L [facility] Anion Gap 12 5 - 15 mmol/L [facility] Calcium 8.2(L) 8.5 - 10.5 mg/dL [facility] Est Glomerular Filtration Rate 20(L) >=60 mL/min/1. 73 m?? [facility] Comment: The eGFR was calculated using the CKD-EPI equation. As with all creatinine based estimates of kidney function, eGFR values calculated with the CKD-EPI equation are not accurate in patients with acute kidney failure, extremes of body mass or the acutely ill. [email or web address] Reply/[email or web address] [email or web address] eGFR 24(L) >=60 mL/min/1. 73 m?? [facility] Comment: The eGFR was calculated using the CKD-EPI equation. As with all creatinine based estimates of kidney function, eGFR values calculated with the CKD-EPI equation are not accurate in patients with acute kidney failure, extremes of body mass or the acutely ill. [email or web address] [email or web address] Blood specimen (specimen) 08/10/2018 10:22 AM EDT 08/10/2018 10:39 AM EDT Narrative Resulting Agency Comment Spec In Lab Anders Romero DO CHEMISTRY ORDERABLES [facility] [place] [place] [address] * POCT Glucose (08/10/2018 9:42 AM EDT) Glucose, POC 159 65 - 199 mg/dL [facility] Comment: Supplemental ranges: <140 mg/dL before meals <180 mg/dL all other times of the day Blood specimen (specimen) 08/10/2018 9:42 AM EDT 08/10/2018 9:42 AM EDT Anders Romero DO POINT OF CARE TEST O RDERABLES [facility] [place] [address] * POCT Glucose (08/10/2018 8:03 AM EDT) Glucose, POC 172 65 - 199 mg/dL [facility] Comment: Supplemental ranges: <140 mg/dL before meals <180 mg/dL all other times of the day Blood specimen (specimen) 08/10/2018 8:03 AM EDT 08/10/2018 8:03 AM EDT Agustin Simon MD POINT OF CARE TEST O RDERAKEREN Performing Organization Address [facility]/ZIP Co de Phone Number [facility] [place] [address] * (ABNORMAL) POCT Glucose (08/10/2018 6:37 AM EDT) Glucose, POC 212(H) 65 - 199 mg/dL [facility] Comment: Supplemental ranges: <140 mg/dL before meals <180 mg/dL all other times of the day Blood specimen (specimen) 08/10/2018 6:37 AM EDT 08/10/2018 6:37 AM EDT Agustin Simon MD POINT OF CARE TEST O CARMELITA Performing Organization Address City/[facility]/ZIP Co de Phone Number [facility] [place] [address] * (ABNORMAL) POCT Glucose (08/10/2018 5:02 AM EDT) Glucose, POC 247(H) 65 - 199 mg/dL [facility] Comment: Supplemental ranges: <140 mg/dL before meals <180 mg/dL all other times of the day Blood specimen (specimen) 08/10/2018 5:02 AM EDT 08/10/2018 5:02 AM EDT Agustin Simon MD POINT OF CARE TEST O RDERABLES [facility] [place] [address] * (ABNORMAL) BLOOD GAS 2 VENOUS (08/10/2018 4:36 AM EDT) pH, Venous 7.31(L) 7.32 - 7.42 [facility] PCO2, Venous 48 41 - 51 mmHg [facility] PO2, Venous 34 25 - 40 mmHg [facility] Bicarbonate, Venous 23.2 mmol/L [facility] Base Excess, Venous -3.1 mmol/L [facility] Hgb Blood Gas 9.6(L) 13.7 - 16.5 gm/dL [facility] Oxyhemoglobin, Venous 65.3 % [facility] Carboxyhemoglob in, Venous 1.4 % [facility] Comment: Nonsmokers: 0.5-1.5% COHB Smokers: Variable, but usually less than 10% Toxic: 20-30% COHB Lethal: Greater than 60% COHB Methemoglobin, Venous 0.7 <=1.5 % [facility] Na Whole Blood 133(L) 135 - 145 mmol/L [facility] K Whole Blood 4.3 3.5 - 5.0 mmol/L [facility] Comment: Please note: Patients with WBC >100,000 may have falsely elevated Potassium levels. Contact the Clinical Chemistry Laboratory if there are any questions. ICa Whole Blood 1.12(L) 1.15 - 1.33 mmol/L [facility] Comment: Note: ??Total bilirubin higher than 20 mg/dL may lead to falsely low ionized calcium. CL Whole Blood 104 98 - 107 mmol/L [facility] Gluc Whole Bld 249(H) 65 - 199 mg/dL [facility] Comment:Diabetes: >=200 mg/d L plus symptoms Lactate WB 1.7 0.5 - 2.2 mmol/L [facility] Fraction of Inspired Oxygen, Venous 21 % [facility] Blood Gas Source Venous [facility] Temperature, Venous 37.0 Celsius [facility] Blood specimen (specimen) 08/10/2018 4:36 AM EDT 08/10/2018 4:36 AM EDT Agustin Simon MD POINT OF CARE TEST O RDERABLES Performing Organization Address [facility]/ZIP Co de Phone Number [facility] [place] [address] * Urinalysis Microscopic Exam (08/10/2018 4:22 AM EDT) RBC, Urine <1 0 - 3 /HPF [facility] WBC, Urine <1 0 - 3 /HPF [facility] Urine specimen obtained by clean catch procedure (specimen) 08/10/2018 4:22 AM EDT 08/10/2018 4:31 AM EDT Narrative Resulting Agency Comment Spec In Lab Simone Degroot APRN URINE ORDERABLES Performing Organization Address City/[facility]/ZIP Co de Phone Number [facility] [place] [address] * (ABNORMAL) Urinalysis with reflex Culture (08/10/2018 4:22 AM EDT) Glucose, Urine Dipstick >=500(Critic al) Negative mg/dL [facility] Comment: Urinalysis result NOT critical without a combination of Glucose greater than or equal to 500mg/dl AND Ketones greater than or equal to 80mg/dl. Protein, Urine Dipstick 100(A) Negative mg/dL [facility] Bilirubin, Urine Dipstick Negative Negative mg/dL [facility] Comment: Clinical correlation required for positive Urine Bilirubin results as false positive may occur with some drugs and drug related products. If a false positive is suspected a serum total bilirubin should be considered if clinically indicated. Urobilinogen, Urine Dipstick Normal Normal mg/dL [facility] pH, Urn (dipstick) 6.0 5.0 - 8.0 [facility] Blood, Urine Dipstick Small(A) Negative mg/dL [facility] Ketone, Urine Dipstick Negative Negative mg/dL [facility] Nitrite, Urine Dipstick Negative Negative [facility] Leukocytes, Urine Dipstick Negative Negative [facility] Appearance, Urine Dipstick Clear Clear [facility] Specific [place] Urine Automated 1.010 1.002 - 1.030 [facility] Color, Urine Dipstick Straw Yellow [facility] Reflex to Culture No [facility] Urine specimen obtained by clean catch procedure (specimen) 08/10/2018 4:22 AM EDT 08/10/2018 4:31 AM EDT Narrative Resulting Agency Comment Spec In Lab Simone Degroot MONA URINE ORDERABLES [facility] [place] [address] * EKG 12 Lead (08/10/2018 3:46 AM EDT) Ventricular rate 55 BPM MUSE SYSTEM Atrial Rate 55 BPM MUSE SYSTEM P-R Interval 134 ms MUSE SYSTEM QRS Duration 92 ms MUSE SYSTEM Q-T Interval 434 ms MUSE SYSTEM QTC Calculated (Bezet) 415 ms MUSE SYSTEM Calculated P [place] 53 degrees MUSE SYSTEM Calculated R [place] 34 degrees MUSE SYSTEM Calculated T [place] 36 degrees MUSE SYSTEM INTERPRETATION Sinus bradycardia Otherwise normal ECG No previous ECGs available Confirmed by MD ERIKAWILDER ([id number]) on 08/10/2018 9:51:54 AM MUSE SYSTEM 08/10/2018 3:46 AM EDT 08/10/2018 9:51 AM EDT Ray Paris MD ECG ORDERABLES MUSE SYSTEM * (ABNORMAL) Osmolality (08/10/2018 3:45 AM EDT) Osmolality 318(H) 275 - 295 mOsm/kg [facility] Blood specimen (specimen) Venous Draw / Unknown 08/10/2018 3:45 AM EDT 08/10/2018 3:52 AM EDT Narrative Resulting Agency Comment Spec In Lab Simone Degroot APRN CHEMISTRY ORDERABLES Performing Organization Address City/[facility]/ZIP Co de Phone Number [facility] [place] [address] * (ABNORMAL) Differential, Automated (08/10/2018 3:45 AM EDT) Neutrophil % 84.0 % [facility] Neutrophil Absolute 11.25(H) 1.70 - 6.10 x10(3)/mc L [facility] Lymph % 7.8 % [facility] Lymphocytes Abs 1.0 0.9 - 3.2 x10(3)/mc L [facility] Monocyte % 7.2 % [facility] Monocyte Abs 1.0(H) 0.3 - 0.9 x10(3)/mc L [facility] Eos % 0.3 % [facility] Eosinophils Abs 0.0 0.0 - 0.4 x10(3)/mc L [facility] Basophil % 0.1 % [facility] Baso Absolute 0.0 0.0 - 0.1 x10(3)/mc L [facility] Immature Gran % 0.60 % [facility] Comment: Immature granulocytes(IG's)percentage and absolute count will include metamyelocytes, myelocytes, and promyelocytes. Blood smears from CBCs yielding IG's will be scanned manually for concordance. If this scan disagrees with the automated IG or if promyelocytes are noted, a manual differential will be performed. Immature Gran Absolute 0.08(H) 0.00 - 0.04 x10(3)/mc L [facility] Blood specimen (specimen) 08/10/2018 3:45 AM EDT 08/10/2018 3:48 AM EDT Narrative Resulting Agency Comment Spec In Lab Simone Degroot MONA HEMATOLOGY ORDERABLE S [facility] [place] [address] * (ABNORMAL) Hemogram (08/10/2018 3:45 AM EDT) White Blood Cell 13.4(H) 4.0 - 9.5 x10(3)/mc L [facility] Red Blood Cell 3.06(L) 4.58 - 5.54 x10(6)/mc [facility] Hemoglobin 9.0(L) 13.7 - 16.5 gm/dL [facility] Hematocrit 26.3(L) 40.5 - 48.5 % [facility] Mean Cell Volume 85.9 82.9 - 93.1 fL [facility] Mean Cell Hemoglobin 29.4 27.5 - 32.1 pg [facility] Mean Cell Hemoglobin Concentration 34.2 32.0 - 35.7 gm/dL [facility] Platelet 236 145 - 357 x10(3)/mc L [facility] RDW Standard Deviation 39.0 36.0 - 45.0 [facility] RDW coefficient of variation 12.3 11.4 - 13.8 % [facility] Mean Platelet Volume 12.2 7.6 - 12.9 [facility] NRBC% auto 0.0 % [facility] NRBC Absolute 0.000 0.000 - 0.000 x10(3)/mc L [facility] Blood specimen (specimen) 08/10/2018 3:45 AM EDT 08/10/2018 3:48 AM EDT Narrative Resulting Agency Comment Spec In Lab Simone Degroot FILING MACHINE OPERATOR HEMATOLOGY ORDERABLE S [facility] [place] [place] [address] * (ABNORMAL) Hemoglobin A1c (08/10/2018 3:45 AM EDT) Hemoglobin A1c 10.7(H) 4.3 - 5.6 % [facility] Comment: Reference Range: 4.3 - 5.6% 5.7 - 6.4% - Increased Risk of Developing Diabetes Mellitus >=6.5% - Consistent with diagnosis of Diabetes Mellitus In the absence of hyperglycemia (i.e. plasma glucose > 200 mg/dL) or classic symptoms of hyperglycemia a repeat measurement of HbA1c should be performed on a separate sample to confirm the diagnosis. Diagnosis and Classification of Diabetes Mellitus, Diabetes Care 2013; 36: Suppl. 1, S67-74 Estimated Average Glucose 260 mg/dL [facility] Comment: eAG equivalents for HbA1c [...] into estimated average glucose values. ??Diabetes Care 2008:31(8):6249-9869. Blood specimen (specimen) 08/10/2018 3:45 AM EDT 08/10/2018 3:49 AM EDT Narrative Resulting Agency Comment Spec In Lab Simone Ritchieleighton DUNN CHEMISTRY ORDERABLES Performing Organization Address [facility]/ZIP Co de Phone Number [facility] [place] [address] * (ABNORMAL) Hepatic Function Panel (08/10/2018 3:45 AM EDT) [facility] Protein, Total 5.9(L) 6.1 - 8.0 gm/dL [facility] Albumin 3.2 3.2 - 5.2 gm/dL [facility] Aspartate Aminotransferase 15 0 - 39 unit/L [facility] Alanine Aminotransferase 35 0 - 55 unit/L [facility] Alkaline Phosphatase 90 40 - 120 unit/L [facility] Bilirubin, Total <0.2(L) 0.2 - 1.3 mg/dL [facility] Bilirubin, Direct <0.1 0.0 - 0.3 mg/dL [facility] Blood specimen (specimen) 08/10/2018 3:45 AM EDT 08/10/2018 3:48 AM EDT Narrative Resulting Agency Comment Spec In Lab Simoen Ritchiedebranereyda MONA CHEMISTRY ORDERABLES Performing Organization Address [facility]/ZIP Co de Phone Number [facility] [place] [address] * Phosphorus (08/10/2018 3:45 AM EDT) [facility] Phosphorus 3.3 2.5 - 4.5 mg/dL [facility] Blood specimen (specimen) 08/10/2018 3:45 AM EDT 08/10/2018 3:48 AM EDT Narrative Resulting Agency Comment Spec In Lab Simone Degroot APRN CHEMISTRY ORDERABLES Performing Organization Address [facility] Co de Phone Number [facility] [place] [address] * Magnesium (08/10/2018 3:45 AM EDT) [facility] Magnesium 0.90 0.69 - 1.07 mmol/L [facility] Blood specimen (specimen) 08/10/2018 3:45 AM EDT 08/10/2018 3:48 AM EDT Narrative Resulting Agency Comment Spec In Lab Simone Degroot APRN CHEMISTRY ORDERABLES Performing Organization Address [facility] Co de Phone Number [facility] [place] [place] [address] * Calcium Ionized Whole Blood, JULES (08/10/2018 3:45 AM EDT) [facility] pH, Venous 7.33 7.32 - 7.42 [facility] ICa Whole Blood 1.16 1.15 - 1.33 mmol/L [facility] Comment: Note: ??Total bilirubin higher than 20 mg/dL may lead to falsely low ionized calcium. Blood specimen (specimen) 08/10/2018 3:45 AM EDT 08/10/2018 3:48 AM EDT Narrative Resulting Agency Comment Spec In Lab Simone Degroot APRN CHEMISTRY ORDERABLES Performing Organization Address [facility] Co de Phone Number [facility] [place] [address] * (ABNORMAL) Cardiac Enzymes (LEB/CGP) (08/10/2018 3:45 AM EDT) [facility] Troponin-T 0.01(H) 0.00 - 0.00 ng/mL [facility] Comment: The 99th percentile for Troponin T is less than 0.01 ng/mL, any detectable cTnT concentration using this assay should be considered elevated. According to the third universal definition of myocardial infarction the following criteria with a clinical presentation consistent with acute myocardial ischemia meets the diagnosis for a myocardial infarction (LA). Detection of a rise and/or fall of cTnT, with at least one value greater than the 99th percentile (> or = 0.01) and with at least one of the following ?? Symptoms of ischemia ?? New or presumed new significant QZ-[id number]-Y wave (ST-T) changes or new left bundle branch block (LBBB) ?? Development of pathologic Q waves in the ECG ?? Imaging evidence of new loss of viable myocardium or new regional wall motion abnormality ?? Identification of an intracoronary thrombus by angiography or autopsy Samples for cTnT testing should be obtained serially upon first assessment and again 3 to 6 hours later. If the clinical suspicion is high and previous samples have been negative an additional sample may be indicated. Reference: Third [place] Definition of Myocardial Infarction. Journal of the [place] [employer] 2012;60:1581-98 Creatine Kinase 262(H) 0 - 200 unit/L [facility] Blood specimen (specimen) 08/10/2018 3:45 AM EDT 08/10/2018 3:48 AM EDT Narrative Resulting Agency Comment Spec In Lab Simone Degroot APRN CHEMISTRY ORDERABLES [facility] [place] [place] [address] * (ABNORMAL) Basic Metabolic Panel (non-fasting) (08/10/2018 3:45 AM EDT) [facility] Glucose 325(H) 65 - 199 mg/dL [facility] Comment:Diabetes: >=200 mg/d L plus symptoms Blood Urea Nitrogen 71(H) 10 - 20 mg/dL [facility] Creatinine 3.51(H) 0.80 - 1.50 mg/dL [facility] Sodium 134(L) 135 - 145 mmol/L [facility] Potassium 4.8 3.5 - 5.0 mmol/L [facility] Comment: Please note: ??Patients with WBC >100,000 may have falsely elevated Potassium levels. ??For accurate Potassium quantification in these patients send serum separator tube (gold top) for subsequent determinations. ??Contact the Clinical Chemistry Laboratory if there are any questions. Chloride 99 98 - 107 mmol/L [facility] Carbon Dioxide 22 22 - 31 mmol/L [facility] Anion Gap 13 5 - 15 mmol/L [facility] Calcium 8.1(L) 8.5 - 10.5 mg/dL [facility] Est Glomerular Filtration Rate 19(L) >=60 mL/min/1. 73 m?? [facility] Comment: The eGFR was calculated using the CKD-EPI equation. As with all creatinine based estimates of kidney function, eGFR values calculated with the CKD-EPI equation are not accurate in patients with acute kidney failure, extremes of body mass or the acutely ill. [email or web address] Reply/[email or web address] eGFR 22(L) >=60 mL/min/1. 73 m?? [facility] Comment: The eGFR was calculated using the CKD-EPI equation. As with all creatinine based estimates of kidney function, eGFR values calculated with the CKD-EPI equation are not accurate in patients with acute kidney failure, extremes of body mass or the acutely ill. [email or web address] Reply/[email or web address] Blood specimen (specimen) 08/10/2018 3:45 AM EDT 08/10/2018 3:48 AM EDT Narrative Resulting Agency Comment Spec In Lab Simone Degroot APRN CHEMISTRY ORDERABLES [facility] [place] [place] [address] * (ABNORMAL) APTT (08/10/2018 3:45 AM EDT) Partial Thromboplastin Time 23(L) 25 - 37 sec [facility] Comment: The PTT is NOT appropriate for heparin monitoring. Use the Anti-Xa level for heparin monitoring (HEP UFH) or LMWH monitoring (HEP LMW). A PTT less than 37 seconds generally indicates adequate hemostasis. Blood specimen (specimen) 08/10/2018 3:45 AM EDT 08/10/2018 3:48 AM EDT Narrative Resulting Agency Comment Spec In Lab Simone Degroot APRN HEMATOLOGY ORDERABLE S Performing Organization Address [facility]/ZIP Co de Phone Number [facility] [place] [place] [address] * (ABNORMAL) Prothrombin Time (08/10/2018 3:45 AM EDT) Prothrombin Time 9.1(L) 9.4 - 12.5 sec [facility] International Normalization Ratio 0.8 [facility] Comment: An INR <2.0 indicates [...] depending on clinical circumstances. Blood specimen (specimen) 08/10/2018 3:45 AM EDT 08/10/2018 3:48 AM EDT Narrative Resulting Agency Comment Spec In Lab Simone Degroot FILING MACHINE OPERATOR HEMATOLOGY ORDERABLE S Performing Organization Address City/[facility]/ZIP Co de Phone Number [facility] [place] [address] * (ABNORMAL) Lactate, whole blood, send to lab (Leb/CGP) (08/10/2018 3:45 AM EDT) Lactate WB 2.3(H) 0.5 - 2.2 mmol/L [facility] Blood specimen (specimen) 08/10/2018 3:45 AM EDT 08/10/2018 3:48 AM EDT Narrative Resulting Agency Comment Spec In Lab Simone Zane DUNN CHEMISTRY ORDERABLES Performing Organization Address City/[facility]/ZIP Co de Phone Number [facility] [place] [address] * (ABNORMAL) POCT Glucose (08/10/2018 3:34 AM EDT) Glucose, POC 358(H) 65 - 199 mg/dL [facility] Comment: Supplemental ranges: <140 mg/dL before meals <180 mg/dL all other times of the day Blood specimen (specimen) 08/10/2018 3:34 AM EDT 08/10/2018 3:34 AM EDT Agustin Simon MD POINT OF CARE TEST O RDERABLES Performing Organization Address [facility] Co de Phone Number [facility] [place] [place] [address] documented in this encounter Visit Diagnoses Diagnosis Hyperkalemia Hyperpotassemia Hyperglycemia Other abnormal glucose documented in this encounter Admitting Diagnoses Diagnosis Hyperglycemia Other abnormal glucose documented in this encounter Administered Medications Inactive Administered Medications - up to 3 most recent administrations Medication Order MAR Action Action Date Dose Rate Site acetaminophen (TYLENOL) tablet 650 mg 650 mg, Oral, EVERY 6 HOURS PRN, Starting on Wed08/10/18 at 0540, Until Wed08/10/18 at 1841, Pain, Fever, Administer for temperature greater than or equal to 38.2 degrees celsius. Maximum daily dose of acetaminophen from all sources not to exceed 4,000 mg., Routine Given 08/10/2018 8:52 AM EDT 650 mg amLODIPine (NORVASC) tablet 10 mg 10 mg, Oral, DAILY, First dose on Wed08/10/18 at 0900, Until Discontinued, Routine Given 08/10/2018 8:53 AM EDT 10 mg aspirin EC tablet 81 mg 81 mg, Oral, DAILY, First dose on Wed08/10/18 at 0900, Until Discontinued, Routine Given 08/10/2018 8:53 AM EDT 81 mg dextrose 50% IV syringe 25-50 mL 25-50 mL (12.5-25 g), Intravenous, EVERY 1 HOUR PRN, Starting on Wed08/10/18 at 0540, Until Wed08/10/18 at 1841, Low blood sugar, For BG 50-70: 120 mL Juice or Regular (not diet) soda OR 12.5 gram (25 mL) Dextrose 50% IV OR, if no IV access, 1 mg Glucagon IM. Recheck BG in 30 minutes. May repeat juice, dextrose or glucagon once per episode For BG less than 50: 240 mL Juice or Regular (not diet) soda OR 25 grams (50 mL) Dextrose 50% IV OR, if no IV access, 1 mg Glucagon IM. Recheck BG in 30 minutes. May repeat juice, dextrose, or glucagon once per episode. To avoid extravasation, push Dextrose 50% SLOWLY (3 mL over 1 minute) in a patent, running IV, preferably a central line. For persistent hypoglycemia, consider longer-acting treatment for the duration of the active insulin., Routine famotidine (PEPCID) tablet 20 mg 20 mg, Oral, DAILY, First dose on Wed08/10/18 at 0900, Until Discontinued, Routine Given 08/10/2018 8:53 AM EDT 20 mg ferrous sulfate EC tablet 325 mg 325 mg, Oral, DAILY, First dose on Wed08/10/18 at 0900, Until Discontinued, DO NOT CRUSH OR OPEN. Take with food or water. , Routine Given 08/10/2018 8:52 AM EDT 325 mg glucagon (human recombinant) injection SolR 1 mg 1 mg, Intramuscular, EVERY 1 HOUR PRN, Starting on Wed08/10/18 at 0540, Until Wed08/10/18 at 1841, Low blood sugar, For BG 50-70: 120 mL Juice or Regular (not diet) soda OR 12.5 gram (25 mL) Dextrose 50% IV OR, if no IV access, 1 mg Glucagon IM. Recheck BG in 30 minutes. May repeat juice, dextrose or glucagon once per episode For BG less than 50: 240 mL Juice or Regular (not diet) soda OR 25 grams (50 mL) Dextrose 50% IV OR, if no IV access, 1 mg Glucagon IM. Recheck BG in 30 minutes. May repeat juice, dextrose, or glucagon once per episode. To avoid extravasation, push Dextrose 50% SLOWLY (3 mL over 1 minute) in a patent, running IV, preferably a central line. For persistent hypoglycemia, consider longer-acting treatment for the duration of the active insulin., Routine heparin (Porcine) subcutaneous injection 5,000 Units 5,000 Units, Subcutaneous, EVERY 12 HOURS SCHEDULED (2 times per day), First dose on Wed08/10/18 at 0045, Until Discontinued, Routine Given 08/10/2018 8:52 AM EDT 5,000 Units Given 08/10/2018 4:57 AM EDT 5,000 Units hydrALAZINE (APRESOLINE) tablet 25 mg 25 mg, Oral, 3 TIMES DAILY, First dose on Wed08/10/18 at 1630, Until Discontinued, Take with Food, Routine Given 08/10/2018 4:16 PM EDT 25 mg insulin detemir U-100 (LEVEMIR) VIAL injection 55 Units 55 Units, Subcutaneous, EVERY 24 HOURS, First dose on Wed08/10/18 at 0600, Until Discontinued Given 08/10/2018 6:56 AM EDT 55 Units insulin lispro (HumaLOG) VIAL injection 2-8 Units 2-8 Units, Subcutaneous, EVERY 4 HOURS SCHEDULED, First dose on Wed08/10/18 at 0800, Until Discontinued, CORRECTION BOLUS Moderate BG 140 - 160 Give 2 units BG 161 - 200 Give 4 units BG 201 - 240 Give 6 units BG greater than 240, give 8 units and recheck BG in 2 hours. If less than 240 after two hours, give no insulin and resume prior schedule. If BG remains greater than 240, repeat 8 units (no more than three times) & call for new basal insulin orders. DO NOT hold if NPO, unless specifically told to do so., Routine Given 08/10/2018 3:51 PM EDT 4 Units Given 08/10/2018 11:50 AM EDT 6 Units Given 08/10/2018 8:04 AM EDT 2 Units methocarbamol (ROBAXIN) tablet 750 mg 750 mg, Oral, 4 TIMES DAILY, First dose on Wed08/10/18 at 0900, Until Discontinued, Routine Given 08/10/2018 3:52 PM EDT 750 mg Given 08/10/2018 11:52 AM EDT 750 mg pregabalin (LYRICA) capsule 100 mg 100 mg, Oral, 2 TIMES DAILY, First dose (after last modification) on Wed08/10/18 at 2100, Until Discontinued, Routine pregabalin (LYRICA) capsule 200 mg 200 mg, Oral, DAILY, First dose (after last modification) on Wed08/10/18 at 0900, Until Discontinued, Routine Given 08/10/2018 8:52 AM EDT 200 mg sodium chloride 0.9% 1,000 mL IV bolus Intravenous, ONCE, 1 dose, On Wed08/10/18 at 0515 New Bag 08/10/2018 5:15 AM EDT sodium chloride 0.9% infusion 150 mL/hr, Intravenous, CONTINUOUS, Starting on Wed08/10/18 at 0600, Until Wed08/10/18 at 1245 New Bag 08/10/2018 8:53 AM EDT 150 mL/hr 150 mL/hr New Bag 08/10/2018 6:10 AM EDT 150 mL/hr 150 mL/hr documented in this encounter Active and Recently Administered Medications Times are shown in EDT. Scheduled Medication Order 08/08/2018 08/09/2018 08/10/2018 amLODIPine (NORVASC) tablet 10 mg 10 mg, Oral, DAILY, First dose on Wed08/10/18 at 0900, Until Discontinued, Routine 0853 (Given - Provid er: Benedicto Arrington RN) aspirin EC tablet 81 mg 81 mg, Oral, DAILY, First dose on Wed08/10/18 at 0900, Until Discontinued, Routine 0853 (Given - Provid er: Benedicto Arrington RN) famotidine (PEPCID) tablet 20 mg 20 mg, Oral, DAILY, First dose on Wed08/10/18 at 0900, Until Discontinued, Routine 0853 (Given - Provid er: Benedicto Arrington RN) ferrous sulfate EC tablet 325 mg 325 mg, Oral, DAILY, First dose on Wed08/10/18 at 0900, Until Discontinued, DO NOT CRUSH OR OPEN. Take with food or water. , Routine 0852 (Given - Provid er: Benedicto Arrington RN) heparin (Porcine) subcutaneous injection 5,000 Units 5,000 Units, Subcutaneous, EVERY 12 HOURS SCHEDULED (2 times per day), First dose on Wed08/10/18 at 0045, Until Discontinued, Routine 0457 (Given - Provid er: Wilder Hercules)0852 (Given - Provider: Benedicto Arrington RN) hydrALAZINE (APRESOLINE) tablet 25 mg 25 mg, Oral, 3 TIMES DAILY, First dose on Wed08/10/18 at 1630, Until Discontinued, Take with Food, Routine 1616 (Given - Provid er: Josefa Barrientos RN) insulin detemir U-100 (LEVEMIR) VIAL injection 55 Units (CANCELED) 55 Units, Subcutaneous, EVERY 24 HOURS, First dose on Wed08/10/18 at 0600, Until Discontinued 0656 (Given - Provid er: Wilder Hercules) insulin lispro (HumaLOG) VIAL injection 2-8 Units(Linked Group 1) 2-8 Units, Subcutaneous, EVERY 4 HOURS SCHEDULED, First dose on Wed08/10/18 at 0800, Until Discontinued, CORRECTION BOLUS Moderate BG 140 - 160 Give 2 units BG 161 - 200 Give 4 units BG 201 - 240 Give 6 units BG greater than 240, give 8 units and recheck BG in 2 hours. If less than 240 after two hours, give no insulin and resume prior schedule. If BG remains greater than 240, repeat 8 units (no more than three times) & call for new basal insulin orders. DO NOT hold if NPO, unless specifically told to do so., Routine 0804 (Given - Provid er: Benedicto Arrington, VIDYA)1150 (Given - Provider: Josefa Barrientos, VIDYA)1551 (Given - Provider: Josefa Barrientos, VIDYA) methocarbamol (ROBAXIN) tablet 750 mg 750 mg, Oral, 4 TIMES DAILY, First dose on Wed08/10/18 at 0900, Until Discontinued, Routine 1152 (Given - Provid er: Josefa Barrientos, VIDYA)1200 (Not Given - Provider: Josefa Barrientos, VIDYA - Reason: See comment - Comment: see alternate dose)1552 (Given - Provider: Josefa Barrientos, VIDYA) nortriptyline (PAMELOR) capsule 25 mg 25 mg, Oral, NIGHTLY, First dose on Wed08/10/18 at 2100, Until Discontinued, Routine pregabalin (LYRICA) capsule 100 mg 100 mg, Oral, 2 TIMES DAILY, First dose (after last modification) on Wed08/10/18 at 2100, Until Discontinued, Routine pregabalin (LYRICA) capsule 200 mg (CANCELED) 200 mg, Oral, DAILY, First dose (after last modification) on Wed08/10/18 at 0900, Until Discontinued, Routine 0852 (Given - Provid er: Benedicto Arrington RN) sodium chloride 0.9 % flush 5 mL 5 mL, Intravenous, 2 TIMES DAILY, First dose on Wed08/10/18 at 0900, Until Discontinued, Routine 0900 (Not Given - Pr ovider: Benedicto Arrington RN - Reason: Order parameters not met - Comment: IV fluids infusing) sodium chloride 0.9% 1,000 mL IV bolus (CANCELED) Intravenous, ONCE, 1 dose, On Wed08/10/18 at 0515 0515 (New Bag - Prov ider: Wilder Hercules) Continuous Medication Order 08/08/2018 08/09/2018 08/10/2018 sodium chloride 0.9% infusion (CANCELED) 150 mL/hr, Intravenous, CONTINUOUS, Starting on Wed08/10/18 at 0600, Until Wed08/10/18 at 1245 0610 (New Bag - Prov ider: Wilder Hercules)0853 (New Bag - Provider: Benedicto Arrington RN)1200 (Stopped - Provider: Josefa Barrientos RN) PRN Medication Order 08/08/2018 08/09/2018 08/10/2018 acetaminophen (TYLENOL) tablet 650 mg 650 mg, Oral, EVERY 6 HOURS PRN, Starting on Wed08/10/18 at 0540, Until Wed08/10/18 at 1841, Pain, Fever, Administer for temperature greater than or equal to 38.2 degrees celsius. Maximum daily dose of acetaminophen from all sources not to exceed 4,000 mg., Routine 0852 (Given - Provid er: Benedicto Arrington RN) dextrose 50% IV syringe 25-50 mL(Linked Group 2) 25-50 mL (12.5-25 g), Intravenous, EVERY 1 HOUR PRN, Starting on Wed08/10/18 at 0540, Until Wed08/10/18 at 1841, Low blood sugar, For BG 50-70: 120 mL Juice or Regular (not diet) soda OR 12.5 gram (25 mL) Dextrose 50% IV OR, if no IV access, 1 mg Glucagon IM. Recheck BG in 30 minutes. May repeat juice, dextrose or glucagon once per episode For BG less than 50: 240 mL Juice or Regular (not diet) soda OR 25 grams (50 mL) Dextrose 50% IV OR, if no IV access, 1 mg Glucagon IM. Recheck BG in 30 minutes. May repeat juice, dextrose, or glucagon once per episode. To avoid extravasation, push Dextrose 50% SLOWLY (3 mL over 1 minute) in a patent, running IV, preferably a central line. For persistent hypoglycemia, consider longer-acting treatment for the duration of the active insulin., Routine glucagon (human recombinant) injection SolR 1 mg(Linked Group 2) 1 mg, Intramuscular, EVERY 1 HOUR PRN, Starting on Wed08/10/18 at 0540, Until Wed08/10/18 at 1841, Low blood sugar, For BG 50-70: 120 mL Juice or Regular (not diet) soda OR 12.5 gram (25 mL) Dextrose 50% IV OR, if no IV access, 1 mg Glucagon IM. Recheck BG in 30 minutes. May repeat juice, dextrose or glucagon once per episode For BG less than 50: 240 mL Juice or Regular (not diet) soda OR 25 grams (50 mL) Dextrose 50% IV OR, if no IV access, 1 mg Glucagon IM. Recheck BG in 30 minutes. May repeat juice, dextrose, or glucagon once per episode. To avoid extravasation, push Dextrose 50% SLOWLY (3 mL over 1 minute) in a patent, running IV, preferably a central line. For persistent hypoglycemia, consider longer-acting treatment for the duration of the active insulin., Routine lidocaine (XYLOCAINE) 10 mg/mL (1 %) injection 3 mg 3 mg (0.3 mL), Subcutaneous, ONCE PRN, 1 dose, Starting on Wed08/10/18 at 0540, Until Wed08/10/18 at 184, for discomfort with PIV insertion, Routine sodium chloride 0.9 % flush 5-20 mL 5-20 mL, Intravenous, EVERY 1 MIN PRN, Starting on Wed08/10/18 at 0540, Until Wed08/10/18 at 184, flush, Flush pertains to all indwelling lines. Flush per protocol found in the job aid using the link provided on this medication record., Routine Linked Groups Order Group 1: POCT Fingerstick Glucose (CANCELED) Routine, EVERY 4 HOURS, First occurrence on Wed08/10/18 at 0800, Until Specified, Consider choosing EVERY 4 HOURS as frequency for: - Type 1 Diabetes - At least 24 hours after coming off an insulin drip - At least 24 hours after admission for DKA - Hypoglycemia unawareness - Patients who are otherwise unstable Select the same frequency for the correction bolus insulin order And insulin lispro (HumaLOG) VIAL injection 2-8 UnitsJump to med 2-8 Units, Subcutaneous, EVERY 4 HOURS SCHEDULED, First dose on Wed08/10/18 at 0800, Until Discontinued, CORRECTION BOLUS Moderate BG 140 - 160 Give 2 units BG 161 - 200 Give 4 units BG 201 - 240 Give 6 units BG greater than 240, give 8 units and recheck BG in 2 hours. If less than 240 after two hours, give no insulin and resume prior schedule. If BG remains greater than 240, repeat 8 units (no more than three times) & call for new basal insulin orders. DO NOT hold if NPO, unless specifically told to do so., Routine Group 2: dextrose 50% IV syringe 25-50 mLJump to med 25-50 mL (12.5-25 g), Intravenous, EVERY 1 HOUR PRN, Starting on Wed08/10/18 at 0540, Until Wed08/10/18 at 1841, Low blood sugar, For BG 50-70: 120 mL Juice or Regular (not diet) soda OR 12.5 gram (25 mL) Dextrose 50% IV OR, if no IV access, 1 mg Glucagon IM. Recheck BG in 30 minutes. May repeat juice, dextrose or glucagon once per episode For BG less than 50: 240 mL Juice or Regular (not diet) soda OR 25 grams (50 mL) Dextrose 50% IV OR, if no IV access, 1 mg Glucagon IM. Recheck BG in 30 minutes. May repeat juice, dextrose, or glucagon once per episode. To avoid extravasation, push Dextrose 50% SLOWLY (3 mL over 1 minute) in a patent, running IV, preferably a central line. For persistent hypoglycemia, consider longer-acting treatment for the duration of the active insulin., Routine Or glucagon (human recombinant) injection SolR 1 mgJump to med 1 mg, Intramuscular, EVERY 1 HOUR PRN, Starting on Wed08/10/18 at 0540, Until Wed08/10/18 at 1841, Low blood sugar, For BG 50-70: 120 mL Juice or Regular (not diet) soda OR 12.5 gram (25 mL) Dextrose 50% IV OR, if no IV access, 1 mg Glucagon IM. Recheck BG in 30 minutes. May repeat juice, dextrose or glucagon once per episode For BG less than 50: 240 mL Juice or Regular (not diet) soda OR 25 grams (50 mL) Dextrose 50% IV OR, if no IV access, 1 mg Glucagon IM. Recheck BG in 30 minutes. May repeat juice, dextrose, or glucagon once per episode. To avoid extravasation, push Dextrose 50% SLOWLY (3 mL over 1 minute) in a patent, running IV, preferably a central line. For persistent hypoglycemia, consider longer-acting treatment for the duration of the active insulin., Routine documented in this encounter Care Teams Consumer [employer] Relationship Specialty Start Date End Date Adeola Villgeas APRN PCP - General Family Medicine 01/13/17 02/05/19 documented as of this encounter
--- OUTSIDE RECORDS SUMMARY | 2024-12-05 12:43 | XMS_ITS | Encounter Summary ---
Author Organization [facility] Address [facility] [place] [address] Care Team Providers Care Mold Puller Name Role Phone Bakari Adeola Laura DUNN Primary Care Provider [phone] Reason for Visit * Reason Comments Establish Care I need HD access * Consultation (Routine) - Closed Specialty Diagnoses / Procedures Referred By Nader pena Referred To Contact Vascular Surgery Diagnoses CKD (chronic kidney disease) stage 4, GFR 15-29 ml/min Cristhian Love MD [facility] [place] [address] Lilia Salazar MD [facility] [place] [address] Referral ID Status Reason Start Date Expiration Date V isits Requested Visits Authorized [id number] Closed Consult, Test & Treat 07/04/2018 07/04/2019 1 1 Encounter Details Date Type Department Care Team (Late st Contact Info) Description 08/11/2018 11:30 AM EDT Office [place] [address] Radha Calle PA [address] [facility] [place] [address] CKD (chronic kidney disease) stage 4, GFR [...] Sign Reading Time Taken Comments Blood Pressure 175/87 08/11/2018 11:33 AM EDT Pulse 58 08/11/2018 11:33 AM EDT Temperature - - Respiratory Rate - - Oxygen Saturation 100% 08/11/2018 11:33 AM EDT Inhaled Oxygen Concentration - - Weight 90.7 kg (200 lb) 08/11/2018 11:33 AM EDT reported Height 177.8 cm (5' 10) 08/11/2018 11:33 AM EDT reported Body Mass Index 28.7 08/11/2018 11:33 AM EDT documented in this encounter Patient Instructions * Patient Instructions* Rahda Calle PA - 08/11/2018 11:30 AM EDT We discussed the option to create a left brachiocephalic AVF. This can be done with local anesthesia and sedation as an outpatient and our louver door assembler will work with the patient to coordinate a time/date. However, because his left arm was not saved for HD access the inpatient staff recently used his left arm for venipunctures/IVs and there is a small non-occlusive thrombus in the antecubital cephalic vein which should ideally be allowed to resolved prior to access creation. We will look for a surgery date for 4-5 weeks from now and will plan to repeat his left arm vein mapping prior to his surgery to ensure this has resolved. The patient understands and accepts the risks of this procedure including infection, bleeding, failure of the fistula to mature, arterial steal syndrome, and the possibility that further procedures could be required in the future for maintenance of this access. He also understands that this fistulawill take 8-10 weeks to mature after creation prior to access. He has been instructed to SAVE his LEFT arm for HD access - no IV's/blood draws. We will arrange further follow up visits as needed after fistula creation. documented in this encounter Progress Notes * Radha Calle PA - 08/11/2018 11:30 AM EDT This is a new patient to the practice who is being evaluated for hemodialysis access and was referred by Dr. Love. Mr. Bonilla is not currently on hemodialysis and is uncertain regarding the timing for initiation of dialysis. He was actually admitted to [facility] yesterday for management of hypertension, hyperglycemia, and hyperkalemia and was discharged prior to the appointment today. There have been no attempts to create a hemodialysis access in the past and he has not had an arm saved for HD access. Vein mapping was completed today. He is working to enroll in the renal transplant program. The patient denies a history of upper extremity line placement, injury, pacemaker placement, or port placement, and is right handed. There are no complaints of upper extremity weakness, pain, numbness, or tissue loss. He currently denies chest pain or shortness of breath. PMHx: Past Medical History: Diagnosis Date ??? Diabetes mellitus ??? Herniation of lumbar intervertebral disc with radiculopathy 08/16/2015 L4-5 left PSxHx: No past surgical history on file. Family Hx: Family History Problem Relation Age of Onset ??? Diabetes Mother ??? Cancer Father ??? Diabetes Paternal Grandmother ??? Heart Disease Paternal Grandfather Social Hx: Social History Tobacco Use ??? Smoking status: Former Smoker Packs/day: 0.50 Types: Cigarettes Last attempt to quit: 07/14/2018 Years since quittin.0 ??? Smokeless tobacco: Never Used Substance Use Topics ??? Alcohol use: No Frequency: Never Medications: Medications 08/12/18 1336 Medication Sig Taking? blood sugar diagnostic strips (ONETOUCH ULTRA TEST) Strip 1 each by Other route 2 times daily (before meals). Dx code 250.02 uses insulin Yes insulin detemir U-100 (LEVEMIR) Insulin Pen Inject 55 Units subcutaneously nightly. Yes lancets Misc Inject 1 each subcutaneously 2 times daily (before meals). Dx code 250.02 uses insulinYes hydrALAZINE (APRESOLINE) 25 mg Tablet Take 1 tablet by mouth 3 times daily. Yes diaZEPam (VALIUM) 2 mg Tablet Take 2 mg by mouth 3 times daily. Yes methocarbamol (ROBAXIN) 750 mg Tablet Take 750 mg by mouth 4 times daily. Yes ranitidine (ZANTAC) 150 mg Tablet Take 150 [...] Yes pregabalin (LYRICA) 100 mg Capsule Take 200 mg by mouth 2 times daily. Yes multivitamin (THERAGRAN) Tablet Take 1 tablet by mouth daily. Yes furosemide (LASIX) 40 mg Tablet Take 1 tablet by mouth daily. Yes Insulin Sumner, Disposable, 31 X 5/16 Needle Inject 1 each subcutaneously 2 times daily (before meals). Yes Allergies: Allergies Allergen Reactions ??? Clindamycin Swelling. ??? Gabapentin swelling ??? Penicillins Unknown reaction as a child. Review of Systems: Constitutional (weight change, fever) - Fatigue Neuro (dizziness, seizures, numbness, tingling) - Denies Eyes (vision) - Denies Ears, nose, throat (hearing) - Denies Cardiovascular (CP) - Denies Respiratory (SOB) - Denies GI (abd pain, nausea, emesis, blood in stool) - Denies (hematuria, dysuria, frequency) - Denies Muscoloskeletal (extremity pain, weakness) - Denies Skin (ulcers, rashes) - Denies All other ROS negative Physical Exam: Vitals: Most Recent Vitals: 08/11/18 1133 BP: 175/87 Pulse: 58 SpO2: 100% PainSc: 6 Gen: No acute distress. HEENT: Normocephalic, atraumatic. PERR, EOMs intact bilaterally. No scleral icterus. Neck: Supple, no JVD. Heart: Regular rate and rhythm. (+) S1/S2. No snaps, clicks, rubs, or murmurs. No lifts/heaves Lungs: Regular respiratory rate with no increased work of breathing. Clear to auscultation bilaterally. Vascular Exam: R L Carotid 2/2 bruit (-) 2/2 bruit (-) Radial 2/2 2/2 Ulnar 2/2 2/2 No edema bilateral upper extremities <3 sec cap refill bilateral hands Skin: No tissue loss bilateral hands Digits/Nails: No evidence of clubbing, cyanosis, ischemia, or tissue loss. Musculoskeletal: Gait - stable, 5/5 wood heel flap trimmer bilaterally, no notable motor sensory deficits on gross examination of bilateral arms. Psych: AAOx3, mood/affect congruent Labs/Studies: 1st time hemodialysis access duplex: 08/11/18 Shoulder Cephalic Vein, Right ?Mia.(mm): 3.3 Mid Upper Arm Cephalic Vein, Right ?Mia.(mm): 2.3 Antecubital Fossa Cephalic Vein, Right ?Mia.(mm): 5.2 ?Thrombus: NON-OCCLUSIVE THROMBUS Mid Forearm Cephalic Vein, Right ?Mia.(mm): 0.9 Wrist Cephalic Vein, Right ?Mia.(mm): 0.4 Upper Arm Basilic Vein, Right ?Mia.(mm): 2.0 Mid Upper Arm Basilic Vein, Right ?Mia.(mm): 1.6 Antecubital Fossa Basilic Vein, Right ?Mia.(mm): 1.0 Brachial Artery, Right ?Pres. (mmHg): 166 ?Waveform: Triphasic Shoulder Cephalic Vein, Left ?Mia.(mm): 3.5 Mid Upper Arm Cephalic Vein, Left ?Mia.(mm): 3.0 Antecubital Fossa Cephalic Vein, Left ?Mia.(mm): 4.2 ?Thrombus: NON-OCCLUSIVE THROMBUS Mid Forearm Cephalic Vein, Left ?Mia.(mm): 1.3 Wrist Cephalic Vein, Left ?Mia.(mm): 0.5 Upper Arm Basilic Vein, Left ?Mia.(mm): 2.3 Mid Upper Arm Basilic Vein, Left ?Mia.(mm): 2.5 Antecubital Fossa Basilic Vein, Left ?Mia.(mm): 2.5 Brachial Artery, Left ?Pres. (mmHg): 166 ?Waveform: Triphasic Interpretation: Patent bilateral axillo-subclavian veins with normal pulsatile, respirophasic Doppler flow signals. RIGHT: The cephalic vein has significant vein wall thickening with a sclerotic- like appearance through the forearm and very bulky non-occlusive thrombus at the antecubital fossa and low upper arm. Patent basilic vein with no evidence of thrombus; moderate circumferential vein wall thickening is noted. The brachial- basilic vein confluence is just above mid upper arm. The brachial artery bifurcation level is at the antecubital fossa. LEFT: The cephalic vein has significant vein wall thickening with a sclerotic- like appearance in the forearm with focal non-occlusive thrombus near/just above the antecubital fossa. Patent basilic vein with no evidence of thrombus; moderate circumferential vein wall thickening is noted. The brachial-basilic vein confluence is just above mid upper arm. The brachial artery bifurcation level is at the antecubital fossa. Impression: Stage IV CKD, requiring permanent HD access Recommendations: We discussed the option to create a left brachiocephalic AVF. This can be done with local anesthesia and sedation as an outpatient and our louver door assembler will work with the patient to coordinate a time/date. However, because his left arm was not saved for HD access the inpatient staff recently used his left arm for venipunctures/IVs and there is a small non-occlusive thrombus in the antecubital cephalic vein which should ideally be allowed to resolved prior to access creation. We will look for a surgery date for 4-5 weeks from now and will plan to repeat his left arm vein mapping prior to his surgery to ensure this has resolved. The patient understands and accepts the risks of this procedure including infection, bleeding, failure of the fistula to mature, arterial steal syndrome, and the possibility that further procedures could be required in the future for maintenance of this access. He also understands that this fistulawill take 8-10 weeks to mature after creation prior to access. He has been instructed to SAVE his LEFT arm for HD access - no IV's/blood draws. We will arrange further follow up visits as needed after fistula creation. documented in this encounter Plan of Treatment Not on file documented as of this encounter Results * Vein Map Arm, Unlateral (09/01/2018 11:32 AM EST) VB Text Report Department: Vascular Surgery Lab Patient: [id number] (GERSON BONILLA) CPT: 21791 ICD10: N18.4;Z01.818 Referring Physician: CRISTIAN CHAVIRA ?? Indications: Patient with CKD stage IV, needs permanent HD access, recent left antecubital vein thrombus, planned left brachiocephalic AVF, ? vein patency/size ICD10 Diagnosis Code: N18.4, Z01.818 Findings: Left ? Diameter AP (mm) ?? Shoulder Cephalic Vein ?2.5 ?? Mid Upper Arm Cephalic Vein ? 2.5 ?? Antecubital Fossa Cephalic Vein ? 4.0 ?? Cephalic Upper Forearm ?0.8 ?? Mid Forearm Cephalic Vein ? 1.1 ?? Cephalic Lower Forearm ?1.0 ?? Wrist Cephalic Vein ? 0.6 ?? Upper Arm Basilic Vein ?2.5 ?? Mid Upper Arm Basilic Vein ?2.2 ?? Basilic Upper Arm Distal ?1.7 ?? Antecubital Fossa Basilic Vein ?2.0 ?? Interpretation: LEFT: Patent cephalic and basilic veins with significant vein wall thickening and no evidence of thrombus. The cephalic vein appears sclerotic through the forearm. Improvement compared to the previous First Time Access exam performed on 08/11/2018 which identified thrombus in the cephalic vein. Electronically Signed by: LILIA SALAZAR on 2018-09-02 10:08:25 AM VASCUBASE VB Text Report End of Report VASCUBASE 09/01/2018 11:3 2 AM EST Cristian Chavira MD VASCULAR ORDERABLES VASCUBASE documented in this encounter Visit Diagnoses Diagnosis CKD (chronic kidney disease) stage 4, GFR 15-29 ml/min Chronic kidney disease, Stage IV (severe) documented in this encounter Care Teams Mold Puller Relationship Specialty Start Date End Date Adeola Villegas APRN PCP - General Family Medicine 01/13/17 02/05/19 documented as of this encounter
--- OUTSIDE RECORDS SUMMARY | 2024-12-05 12:43 | XMS_ITS | Encounter Summary ---
Author Organization [place] [address] Care Team Providers Care Account Associate Name Role Phone Adeola Villegas APRN Primary Care Provider Encounter Details Date Type Department Care Team (Latest Contact Info) Description 09/01/2018 11:30 AM EST - 09/01/2018 12:41 PM [facility] Hospital Encounter [place] [id number] Abram Pizano [place] CKD (chronic kidney disease) stage 4, GFR [...] daily. 30 tablet 12 06/13/2015 10/24/2018 Insulin Nettie, Disposable, 31 X 5/16 Needle Inject 1 each subcutaneously 2 times daily (before meals). 100 each 07/19/2014 02/25/2024 documented as of this encounter Plan of Treatment Not on file documented as of this encounter Procedures Procedure Name Priority Date/Time Associated Diagnosis Comments VEIN MAP ARM, UNILATERAL Routine 09/01/2018 11:32 AM EST CKD (chronic kidney disease) stage 4, GFR 15-29 ml/min documented in this encounter Results * Vein Map Arm, Unlateral (09/01/2018 11:32 AM EST) VB Text Report Department: Vascular Surgery Lab Patient: [id number] (GERSON BONILLA) CPT: 03181 ICD10: N18.4;Z01.818 Referring Physician: MARIE CHAVIRA ?? Indications: Patient with CKD stage [...] in the cephalic vein. Electronically Signed by: JAIME SALAZAR on 2018-09-02 10:08:25 AM VASCUBASE VB Text Report End of Report VASCUBASE 09/01/2018 11:3 2 AM EST Marie Chavira MD VASCULAR ORDERABLES VASCUBASE documented in this encounter Visit Diagnoses Diagnosis CKD (chronic kidney disease) stage 4, GFR 15-29 ml/min Chronic kidney disease, Stage IV (severe) documented in this encounter Care Teams Account Associate Relationship Specialty Start Date End Date Adeola Villegas, MONA PCP - General Family Medicine 01/13/17 02/05/19 documented as of this encounter
--- OUTSIDE RECORDS SUMMARY | 2024-12-05 12:43 | XMS_ITS | Encounter Summary ---
Author Organization [facility] Address [facility] [place] [address] Care Team Providers Care Heating And Ventilating Drafter Name Role Phone Adeola Villegas APRN Primary Care Provider Encounter Details Date Type Department Care Team (Late st Contact Info) Description 08/05/2018 Telephone [place] [address] Marichuy So, RN Social History Tobacco Use Types Packs/Day Years Used Date Smoking Tobacco: Every Day Cigarettes Smokeless Tobacco: Never Sex and Gender Information Value Date Recorded Sex Assigned at Not on file Gender Identity Not on file Sexual Orientation Not on file documented as of this encounter Miscellaneous Notes * Telephone Encounter - Marichuy So RN - 08/05/2018 11:25 AM EDT S/O: Received message from Transplant Team that they received a call from Gerson stating he was in tremendous back pain with blood pressures 210s/86-90s. Normally his blood pressure is in the 140-150range and is managed on amlodipine 10 mg daily and furosemide 40 mg daily. A: HTN urgency P: Discussed case with Dr Lugo as Dr Love is off service. Due to extreme change in BP, recommending for evaluation in local ED. Patient verbalizes understanding but expressed frustration stating they are going to treat me like a heroin addict because I am on Lyrica documented in this encounter Plan of Treatment Not on file documented as of this encounter Visit Diagnoses Not on filedocumented in this encounter Care Teams Heating And Ventilating Drafter Relationship Specialty Start Date End Date Adeola Villegas APRN PCP - General Family Medicine 01/13/17 02/05/19 documented as of this encounter
--- OUTSIDE RECORDS SUMMARY | 2024-12-05 12:43 | XMS_ITS | Encounter Summary ---
Author Organization [facility] Address [facility] [place] [address] Care Team Providers Care Arts And Crafts Instructor Name Role Phone Adeola Villegas APRN Primary Care Provider [phone] Encounter Details Date Type Department Care Team (Late st Contact Info) Description 08/18/2018 Notes Only Solid Organ Transplant at [facility] [place] [address] An Lilly Social History Tobacco Use Types Packs/Day Years [...] as of this encounter Progress Notes * An Lilly - 08/18/2018 11:30 AM EDT Transplant Desktop Publishing Operator Note: Placed call to patient to introduce self and explain my rolewith the Kidney Transplant Team (I was out the day he came for kidney class). I explained that I could meet with him on most any day that he has other appointments at [facility]. He agrees to call me to coordinate when he schedules a future appointment. documented in this encounter Plan of Treatment Not on file documented as of this encounter Visit Diagnoses Not on filedocumented in this encounter Care Teams Arts And Crafts Instructor Relationship Specialty Start Date End Date Adeola Villegas APRN PCP - General Family Medicine 01/13/17 02/05/19 documented as of this encounter
--- OUTSIDE RECORDS SUMMARY | 2024-12-05 12:43 | XMS_ITS | Encounter Summary ---
Author Organization [facility] [place] [address] Care Team Providers Care Claim Representative Name Role Phone Adeola Villegas APRN Primary Care Provider [phone] Reason for Referral * Diagnostic Test (Routine) - Closed Specialty Diagnoses / Procedures Referred By Nader pena Referred To Contact Transplant Diagnoses Pre-transplant evaluation for kidney transplant Procedures Echo pharm stress test (DSE) [facility] Transplant [address] [place] [phone] [facility] Transplant [address] [place] [phone] Referral ID Status Reason Start Date Expiration Date V isits Requested Visits Authorized [id number] Closed Specialty Service Requested 06/15/2018 06/15/2019 1 1 Encounter Details Date Type Department Care Team (Late st Contact Info) Description 06/15/2018 Orders Only [place] [address] Debra Akins RN Pre-transplant evaluation for kidney [...] documented as of this encounter Results * MELLY, legs, multiple levels (12/21/2018 9:59 AM EST) Text Report Department: Vascular Surgery Lab Patient: [id number] (GERSON BONILLA) CPT: 71647 ICD10: Z01.818 Referring Physician: IRVING PAULSON ?? Indications: ?? Pre transplant evaluation, ? [...] of Report VASCUBASE 12/21/2018 9:59 AM EST Irving Paulson MD VASCULAR ORDERABL ES VASCUBASE * STRESS ECHO W CONTRAST W LMTD SPEC DOPP COLOR DOPP (10/24/2018 11:39 AM EST) EF 65 HEARTLAB SYSTEM Anatomical Region Laterality Modality Other 10/24/2018 Narrative 10/24/2018 3:44 PM EST Procedure: ?Stress Echocardiogram Patient: ?CHAD Pena ?(Age): 1965(52y) Med Rec#: ? [id number] ?Sex: ?M ? [place] Loc: ? [facility] ?Ht / Wt: ??177.8(cm)/95.3( Pt. Loc: ?Echo Lab ?BSA: ?2. Study Date: ?? 10/24/2018 ?Pt. Type: Tape: ? Referring: Irving Paulson Reading: Jefe Arellano ([id number]) Digital Content Producer: Jeyson Edmondson Nurse: Greta Espitia Diagnosis: *Encounter [...] E-wave Vmax ?1.4 ?m/sec ? MV deceleration [id number] ?msec ? MV A-wave Vmax ?1 ?m/sec [...] Normal ? Mid-Inferoseptal ?Normal ? Normal ? [place]-Septal ? Normal ? Normal ? [place]-Anterior ? Normal ? Normal ? [place]-Lateral ?Normal ? Normal ? [place]-Inferior ? Normal ? Normal ? [place]-Tip ?Normal ? Normal ? This report has been electronically signed by: Jefe Arellano MD ? 10/24/2018 15:44:20 Images reviewed and interpretation verified [facility] Cardiac Ultrasound Laboratory Procedure Note Jefe Arellano MD - 10/24/2018 Procedure: Stress Echocardiogram Patient: CHAD LEZAMA(Age): 1965(52y) Med Rec#: [id number] Sex: M Site Loc: [facility] Ht / Wt: 177.8(cm)/95.3( Pt. Loc: Echo Lab BSA: 2.13 Study Date: 10/24/2018 Pt. Type: Tape: Referring: Irving Paulson Reading: Jefe Arellano ([id number]) Digital Content Producer: Jeyson Edmondson Nurse: Greta Espitia Diagnosis: *Encounter [...] MV E-wave Vmax 1.4 m/sec MV deceleration [id number] msec MV A-wave Vmax 1 m/sec MV [...] Normal Mid-Inferior Normal Normal Mid-Inferoseptal Normal Normal [place]-Septal Normal Normal [place]-Anterior Normal Normal [place]-Lateral Normal Normal [place]-Inferior Normal Normal [place]-Tip Normal Normal This report has been electronically signed by: Jefe Arellano MD 10/24/2018 15:44:20 Images reviewed and interpretation verified [facility] Cardiac Ultrasound Laboratory Irving Paulson MD ECHO ORDERABLES * EKG 12 Lead (09/01/2018 2:08 PM EST) Ventricular rate 75 BPM MUSE SYSTEM Atrial Rate 75 BPM MUSE SYSTEM P-R Interval 146 ms MUSE SYSTEM QRS Duration 94 ms MUSE SYSTEM Q-T Interval 388 ms MUSE SYSTEM QTC Calculated (Bezet) 433 ms MUSE SYSTEM Calculated P [place] 58 degrees MUSE SYSTEM Calculated R [place] 32 degrees MUSE SYSTEM Calculated T [place] 41 degrees MUSE SYSTEM INTERPRETATION Normal sinus rhythm Normal ECG When compared with ECG of 10-AUG-2018 03:46, No significant change was found Confirmed by MD Juan, Sourav ([id number]) on 09/01/2018 2:29:15 PM MUSE SYSTEM 09/01/2018 2:08 PM EST 09/01/2018 2:29 PM EST Irving Paulson MD ECG ORDERABLES MUSE SYSTEM * XR Chest PA & Lateral (Generic) [...] wall thickening consistent with chronic inflammation/chronic bronchitis. Irving Paulson MD IMG DX ORDERABLES * Pulmonary Function Testing (09/01/2018 11:29 AM EST) Narrative Vasu Hernandez MD - 09/01/2018 11:29 AM EST Vasu Hernandez MD ? 09/05/2018 ??1:25 PM Normal spirometry. Mild reduction in diffusing capacity. The isolated reduction in diffusing capacity is a non-specific finding consistent with a variety of cardiopulmonary disorders as well as anemia. Normal resting oximetry on room air. Irving Paulson MD PFT ORDERABLES documented in this encounter Visit Diagnoses Diagnosis Pre-transplant evaluation for kidney transplant Other specified pre-operative examination Pre-transplant evaluation for kidney transplant Other specified pre-operative examination Pre-transplant evaluation for kidney transplant Other specified pre-operative examination Pre-transplant evaluation for kidney transplant Other specified pre-operative examination documented in this encounter Care Teams Claim Representative Relationship Specialty Start Date End Date Adeola Villegas APRN PCP - General Family Medicine 01/13/17 02/05/19 documented as of this encounter
--- OUTSIDE RECORDS SUMMARY | 2024-12-05 12:43 | XMS_ITS | Encounter Summary ---
[place] [address] Care Team Providers Care Rad Technologist Name Role Phone Adeola Villegas APRN Primary Care Provider Encounter Details Date Type Department Care Team (Latest Contact Info) Description 07/04/2018 1:00 PM EDT Laboratory Appointment Lab [address] [place] [phone] CKD (chronic kidney disease) stage 4, GFR [...] Priority Date/Time Associated Diagnosis Comments PTH Routine 07/04/2018 2:18 PM EDT CKD (chronic kidney disease) stage 4, GFR 15-29 ml/min HEMOGRAM Routine 07/04/2018 2:18 PM EDT CKD (chronic kidney disease) stage 4, GFR 15-29 ml/min DIFFERENTIAL, AUTOMATED Routine 07/04/2018 2:18 PM EDT CKD (chronic kidney disease) stage 4, GFR 15-29 ml/min CBC (WITH DIFF) Routine 07/04/2018 2:18 PM EDT CKD (chronic kidney disease) stage 4, GFR 15-29 ml/min PHOSPHORUS Routine 07/04/2018 2:18 PM EDT CKD (chronic kidney disease) stage 4, GFR 15-29 ml/min ALBUMIN LEVEL Routine 07/04/2018 2:18 PM EDT CKD (chronic kidney disease) stage 4, GFR 15-29 ml/min BASIC METABOLIC PANEL Routine 07/04/2018 2:18 PM EDT CKD (chronic kidney disease) stage 4, GFR 15-29 ml/min PROTEIN/CREATININE RATIO, URINE Routine 07/04/2018 2:17 PM EDT CKD (chronic kidney disease) stage 4, GFR 15-29 ml/min documented in this encounter Results * Differential, Automated (07/04/2018 2:18 PM EDT) Neutrophil % 56.3 % [facility] Neutrophil Absolute 4.44 1.70 - 6.10 x10(3)/[facility] Lymph % 30.6 % [facility] Lymphocytes Abs 2.4 0.9 - 3.2 x10(3)/[facility] Monocyte % 8.7 % [facility] Monocyte Abs 0.7 0.3 - 0.9 x10(3)/[facility] Eos % 3.5 % [facility] Eosinophils Abs 0.3 0.0 - 0.4 x10(3)/[facility] Basophil % 0.6 % [facility] Baso Absolute 0.0 0.0 - 0.1 x10(3)/[facility] Immature Gran % 0.30 % [facility] Comment: Immature granulocytes(IG's)percentage and absolute count will include metamyelocytes, myelocytes, and promyelocytes. Blood smears from CBCs yielding IG's will be scanned manually for concordance. If this scan disagrees with the automated IG or if promyelocytes are noted, a manual differential will be performed. Immature Gran Absolute 0.02 0.00 - 0.04 x10(3)/[facility] Blood specimen (specimen) 07/04/2018 2:18 PM EDT 07/04/2018 2:25 PM EDT Narrative Resulting Agency Comment Spec In Lab Cristhian Love MD HEMATOLOGY ORDERABLE S [facility] [place] [address] * (ABNORMAL) Hemogram (07/04/2018 2:18 PM EDT) White Blood Cell 7.9 4.0 - 9.5 x10(3)/mc L [facility] Red Blood Cell 3.44(L) 4.58 - 5.54 x10(6)/mc L [facility] Hemoglobin 10.4(L) 13.7 - 16.5 gm/dL [facility] Hematocrit 31.7(L) 40.5 - 48.5 % [facility] Mean Cell Volume 92.2 82.9 - 93.1 fL [facility] Mean Cell Hemoglobin 30.2 27.5 - 32.1 pg [facility] Mean Cell Hemoglobin Concentration 32.8 32.0 - 35.7 gm/dL [facility] Platelet 231 145 - 357 x10(3)/mc L [facility] RDW Standard Deviation 43.7 36.0 - 45.0 [facility] RDW coefficient of variation 12.9 11.4 - 13.8 % [facility] Mean Platelet Volume 11.6 7.6 - 12.9 [facility] NRBC% auto 0.0 % [facility] NRBC Absolute 0.000 0.000 - 0.000 x10(3)/ L [facility] Blood specimen (specimen) 07/04/2018 2:18 PM EDT 07/04/2018 2:25 PM EDT Narrative Resulting Agency Comment Spec In Lab Cristhian Love MD HEMATOLOGY ORDERABLE S [facility] [place] [address] * (ABNORMAL) PTH (07/04/2018 2:18 PM EDT) Parathyroid Hormone 107(H) 15 - 65 pg/mL [facility] Blood specimen (specimen) 07/04/2018 2:18 PM EDT 07/04/2018 2:25 PM EDT Narrative Resulting Agency Comment Spec In Lab Cristhian Love MD CHEMISTRY ORDERABLES Performing Organization Address City/[facility]/ZIP Co de Phone Number [facility] [place] [address] * Albumin Level (07/04/2018 2:18 PM EDT) Albumin 3.6 3.2 - 5.2 gm/dL [facility] Blood specimen (specimen) 07/04/2018 2:18 PM EDT 07/04/2018 2:25 PM EDT Narrative Resulting Agency Comment Spec In Lab Cristhian Love MD CHEMISTRY ORDERABLES Performing Organization Address City/[facility]/ZIP Co de Phone Number [facility] [place] [address] * Phosphorus (07/04/2018 2:18 PM EDT) Phosphorus 4.2 2.5 - 4.5 mg/dL [facility] Blood specimen (specimen) 07/04/2018 2:18 PM EDT 07/04/2018 2:25 PM EDT Narrative Resulting Agency Comment Spec In Lab Cristhian Love MD CHEMISTRY ORDERABLES Performing Organization Address City/[facility]/ZIP Co de Phone Number [facility] [place] [address] * (ABNORMAL) Basic Metabolic Panel (non-fasting) (07/04/2018 2:18 PM EDT) Glucose 161 65 - 199 mg/dL [facility] Comment:Diabetes: >=200 mg/d L plus symptoms Blood Urea Nitrogen 56(H) 10 - 20 mg/dL [facility] Creatinine 3.27(H) 0.80 - 1.50 mg/dL [facility] Sodium 143 135 - 145 mmol/L [facility] Potassium 5.5(H) 3.5 - 5.0 mmol/L [facility] Comment: Please note: ??Patients with WBC >100,000 may have falsely elevated Potassium levels. ??For accurate Potassium quantification in these patients send serum separator tube (gold top) for subsequent determinations. ??Contact the Clinical Chemistry Laboratory if there are any questions. Chloride 107 98 - 107 mmol/L [facility] Carbon Dioxide 24 22 - 31 mmol/L [facility] Anion Gap 12 5 - 15 mmol/L [facility] Calcium 8.7 8.5 - 10.5 mg/dL [facility] Est Glomerular Filtration Rate 21(L) >=60 mL/min/1. 73 m?? [facility] Comment: The eGFR was calculated using the CKD-EPI equation. As with all creatinine based estimates of kidney function, eGFR values calculated with the CKD-EPI equation are not accurate in patients with acute kidney failure, extremes of body mass or the acutely ill. http://[employer]/[facility] MUSKOGEEnkf eGFR 24(L) >=60 mL/min/1. 73 m?? [facility] Comment: The eGFR was calculated using the CKD-EPI equation. As with all creatinine based estimates of kidney function, eGFR values calculated with the CKD-EPI equation are not accurate in patients with acute kidney failure, extremes of body mass or the acutely ill. http://[employer]/[facility]GEEnkf Blood specimen (specimen) 07/04/2018 2:18 PM EDT 07/04/2018 2:25 PM EDT Narrative Resulting Agency Comment Spec In Lab Cristhian Love MD CHEMISTRY ORDERABLES [facility] [place] [address] * (ABNORMAL) Protein/Creatinine Ratio, urine (07/04/2018 2:17 PM EDT) Creatinine, Urine 57 mg/dL [facility] Protein, Urine 132(H) 0 - 12 mg/dL [facility] Protein / Creatinine Ratio, Urine 2.3 ratio [facility] Urine specimen (specimen) 07/04/2018 2:17 PM EDT 07/04/2018 2:26 PM EDT Narrative Resulting Agency Comment Spec In Lab Cristhian Love MD URINE ORDERABLES Performing Organization Address [facility] Co de Phone Number [facility] [place] [address] documented in this encounter Visit Diagnoses Diagnosis CKD (chronic kidney disease) stage 4, GFR 15-29 ml/min Chronic kidney disease, Stage IV (severe) documented in this encounter Care Teams Rad Technologist Relationship Specialty Start Date End Date Adeola Villegas APRN PCP - General Family Medicine 01/13/17 02/05/19 documented as of this encounter
--- OUTSIDE RECORDS SUMMARY | 2024-12-05 12:43 | XMS_ITS | Encounter Summary ---
Author Organization [facility] [place] [address] Care Team Providers Care Wallcovering Texturer Name Role Phone Adeola Villegas APRN Primary Care Provider Encounter Details Date Type Department Care Team (Latest Contact Info) Description 08/11/2018 10:00 AM EDT - 08/11/2018 11:59 PM EDT Hospital En[place] [phone] Fiona Puentes [place] CKD (chronic kidney disease) stage 4, [...] daily. 30 tablet 12 06/13/2015 10/24/2018 Insulin [place], Disposable, 31 X 5/16 Needle Inject 1 each subcutaneously 2 times daily (before meals). 100 each 11 07/19/2014 02/25/2024 documented as of this encounter Plan of Treatment Not on file documented as of this encounter Procedures Procedure Name Priority Date/Time Associated Diagnosis Comments HEMODIALYSIS ACCESS Routine 08/11/2018 1 0:10 AM EDT CKD (chronic kidney disease) stage 4, GFR 15-29 ml/min documented in this encounter Results * First Time Hemodialysis access (08/11/2018 10:10 AM EDT) VB Text Report Department: Vascular Surgery Lab Patient: [id number] (GERSON BONILLA) CPT: G0365 ICD10: Z01.818;N18.4 Referring [...] AM EDT Cristhian Hameed MD VASCULAR ORDERABLES [facility] documented in this encounter Visit Diagnoses Diagnosis CKD (chronic kidney disease) stage 4, GFR 15-29 ml/min Chronic kidney disease, Stage IV (severe) documented in this encounter Care Teams Wallcovering Texturer Relationship Specialty Start Date End Date Adeola Villegas APRN PCP - General Family Medicine 01/13/17 02/05/19 documented as of this encounter
--- OUTSIDE RECORDS SUMMARY | 2024-12-05 12:43 | XMS_ITS | Encounter Summary ---
Author Organization [facility] Address [facility] [place] [address] Care Team Providers Care Medical Staff Services Manager Name Role Phone Adeola Villegas APRN Primary Care Provider Encounter Details Date Type Department Care Team (Late st Contact Info) Description 08/25/2018 Telephone [place] [phone] Marichuy So RN Social History Tobacco Use [...] Telephone Encounter - Marichuy So RN - 08/25/2018 2:07 PM EDT S/O: documented in this encounter Plan of Treatment Not on file documented as of this encounter Visit Diagnoses Not on filedocumented in this encounter Care Teams Medical Staff Services Manager Relationship Specialty Start Date End Date Adeola Villegas APRN PCP - General Family Medicine 01/13/17 02/05/19 documented as of this encounter
--- OUTSIDE RECORDS SUMMARY | 2024-12-05 12:43 | XMS_ITS | Encounter Summary ---
[place] [address] Care Team Providers Care Deer Farmer Name Role Phone Adeola Villegas APRN Primary Care Provider Encounter Details Date Type Department Care Team (Latest Contact Info) Description 04/07/2018 1:00 PM EDT Laboratory Appointment Lab [address] [place] [phone] Stage 4 chronic kidney disease; Anemia of chronic disease; Vitamin D deficiency; Type 2 diabetes mellitus without complication, with long-term current use of insulin Social [...] Priority Date/Time Associated Diagnosis Comments HEMOGRAM Routine 04/07/2018 1:10 PM EDT Stage 4 chronic kidney disease Anemia of chronic disease DIFFERENTIAL, AUTOMATED Routine 04/07/2018 1:10 PM EDT Stage 4 chronic kidney disease Anemia of chronic disease IRON AND TIBC Routine 04/07/2018 1:10 PM EDT Stage 4 chronic kidney disease Anemia of chronic disease VITAMIN D, 25-HYDROXY Routine 04/07/2018 1:10 PM EDT Stage 4 chronic kidney disease Vitamin D deficiency CBC (WITH DIFF) Routine 04/07/2018 1:10 PM EDT Stage 4 chronic kidney disease Anemia of chronic disease PROTEIN ELECTROPHORESIS, SERUM Routine 04/07/2018 1:10 PM EDT PHOSPHORUS Routine 04/07/2018 1:10 PM EDT Stage 4 chronic kidney disease HEMOGLOBIN A1C Routine 04/07/2018 1:10 PM EDT Type 2 diabetes mellitus without complication, with long-term current use of insulin Stage 4 chronic kidney disease FERRITIN Routine 04/07/2018 1:10 PM EDT Stage 4 chronic kidney disease Anemia of chronic disease ALBUMIN LEVEL Routine 04/07/2018 1:10 PM EDT Stage 4 chronic kidney disease BASIC METABOLIC PANEL Routine 04/07/2018 1:10 PM EDT Stage 4 chronic kidney disease documented in this encounter Results * Protein Electrophoresis, serum (04/07/2018 1:10 PM EDT) Total Prot Electrophoresis 6.4 6.1 - 8.0 gm/dL [facility] Albumin Electrophoresis 3.83 3.60 - 6.00 gm/dL [facility] Alpha 1 Globulin 0.22 0.10 - 0.30 gm/dL [facility] Alpha 2 Globulin 0.82 0.40 - 0.90 gm/dL [facility] Beta Globulin 0.70 0.50 - 1.00 gm/dL [facility] Gamma Globulin 0.83 0.50 - 1.30 gm/dL [facility] M1 Band None Detected [facility] Blood specimen (specimen) Venous Draw / Unknown 04/07/2018 1:10 PM EDT 04/07/2018 1:38 PM EDT Narrative Resulting Agency Comment Spec In Lab Leelee Edge MD CHEMISTRY ORDERABLE S [facility] [place] [address] * Differential, Automated (04/07/2018 1:10 PM EDT) Neutrophil % 47.0 % [facility] Neutrophil Absolute 3.17 1.70 - 6.10 x10(3)/[facility] LABOR[facility] Lymph % 37.7 % [facility] Lymphocytes Abs 2.5 0.9 - 3.2 x10(3)/[facility] Monocyte % 10.8 % [facility] Monocyte Abs 0.7 0.3 - 0.9 x10(3)/[facility] Eos % 3.6 % [facility] Eosinophils Abs 0.2 0.0 - 0.4 x10(3)/[facility] Basophil % 0.6 % [facility] Baso Absolute 0.0 0.0 - 0.1 x10(3)/[facility]OR[facility] Immature Gran % 0.30 % [facility] Comment: Immature granulocytes(IG's)percentage and absolute count will include metamyelocytes, myelocytes, and promyelocytes. Blood smears from CBCs yielding IG's will be scanned manually for concordance. If this scan disagrees with the automated IG or if promyelocytes are noted, a manual differential will be performed. Immature Gran Absolute 0.02 0.00 - 0.04 x10(3)/[facility] Blood specimen (specimen) 04/07/2018 1:10 PM EDT 04/07/2018 1:19 PM EDT Narrative Resulting Agency Comment Spec In Lab Leelee Edge MD HEMATOLOGY ORDERABL ES [facility] [place] [address] * (ABNORMAL) Hemogram (04/07/2018 1:10 PM EDT) White Blood Cell 6.7 4.0 - 9.5 x10(3)/mc L [facility] Red Blood Cell 3.31(L) 4.58 - 5.54 x10(6)/mc L [facility] Hemoglobin 10.2(L) 13.7 - 16.5 gm/dL [facility] Hematocrit 31.3(L) 40.5 - 48.5 % [facility] Mean Cell Volume 94.6(H) 82.9 - 93.1 fL [facility] Mean Cell Hemoglobin 30.8 27.5 - 32.1 pg [facility] Mean Cell Hemoglobin Concentration 32.6 32.0 - 35.7 gm/dL [facility] Platelet 226 145 - 357 x10(3)/mc L [facility] RDW Standard Deviation 45.1(H) 36.0 - 45.0 [facility] RDW coefficient of variation 13.0 11.4 - 13.8 % [facility] Mean Platelet Volume 12.0 7.6 - 12.9 [facility] NRBC% auto 0.0 % [facility] NRBC Absolute 0.000 0.000 - 0.000 x10(3)/mc L [facility] Blood specimen (specimen) 04/07/2018 1:10 PM EDT 04/07/2018 1:19 PM EDT Narrative Resulting Agency Comment Spec In Lab Leelee Edge MD HEMATOLOGY ORDERABL ES [facility] [place] [address] * (ABNORMAL) Hemoglobin A1c (04/07/2018 1:10 PM EDT) Hemoglobin A1c 7.4(H) 4.3 - 5.6 % [facility] Comment: Reference Range: 4.3 - [...] Mellitus, Diabetes Care 2013; 36: Suppl. 1, T03-80 Estimated Average Glucose 166 mg/dL [facility] Comment: eAG equivalents for HbA1c [...] into estimated average glucose values. ??Diabetes Care 2008:31(8):7492-5097. Blood specimen (specimen) 04/07/2018 1:10 PM EDT 04/07/2018 1:19 PM EDT Narrative Resulting Agency Comment Spec In Lab Felton Lugo MD CHEMISTRY ORDERABLES [facility] [place] [address] * Vitamin D, 25-Hydroxy (04/07/2018 1:10 PM EDT) Vitamin D Total 25 OH 32 30 - 100 ng/mL [facility] Comment: Deficient <10 ng/mL Insufficient 10 to 29 ng/mL Sufficient 30 to 100 ng/mL Potential Intoxication >100 ng/mL According to the [place] National Osteoporosis Foundation, Vitamin D concentrations >30 ng/mL are sufficient to protect bone health. ??The National Kidney Foundation has similarly stated that patients with Vitamin D concentrations <30ng/mL should be considered to be insufficient or deficient. http://[employer]/nkf-guidelines http://[employer]/nejm-VitD The [employer] Vitamin D Immunoassay detects both 25-OH Vitamin D2 and 25-OH Vitamin D3, but only a total Vitamin D concentration is reported. Blood specimen (specimen) 04/07/2018 1:10 PM EDT 04/08/2018 7:32 AM EDT Narrative Resulting Agency Comment Spec In Lab Felton Lugo MD CHEMISTRY ORDERABLES Performing Organization Address [facility] de Phone Number [facility] [place] [address] * (ABNORMAL) Phosphorus (04/07/2018 1:10 PM EDT) Phosphorus 4.8(H) 2.5 - 4.5 mg/dL [facility] Blood specimen (specimen) 04/07/2018 1:10 PM EDT 04/07/2018 1:19 PM EDT Narrative Resulting Agency Comment Spec In Lab Felton Lugo MD CHEMISTRY ORDERABLES Performing Organization Address [facility] de Phone Number [facility] [place] [address] * Albumin Level (04/07/2018 1:10 PM EDT) Albumin 3.7 3.2 - 5.2 gm/dL [facility] Blood specimen (specimen) 04/07/2018 1:10 PM EDT 04/07/2018 1:19 PM EDT Narrative Resulting Agency Comment Spec In Lab Felton Lugo MD CHEMISTRY ORDERABLES Performing Organization Address City/[facility]/ZIP Co de Phone Number [facility] [place] [address] * Ferritin (04/07/2018 1:10 PM EDT) [facility] Ferritin 83 30 - 400 ng/mL [facility] Comment: Pediatric reference ranges not verified at [facility], interpret with caution. Reference ranges for females greater than 50 years of age approach values for men, i.e., 30-400 ng/mL. Blood specimen (specimen) 04/07/2018 1:10 PM EDT 04/07/2018 1:19 PM EDT Narrative Resulting Agency Comment Spec In Lab Felton Lugo MD CHEMISTRY ORDERABLES Performing Organization Address [facility]/ZIP Co de Phone Number [facility] [place] [address] * (ABNORMAL) Iron and TIBC (04/07/2018 1:10 PM EDT) [facility] Iron 59 45 - 160 mcg/dL [facility] TIBC 244(L) 250 - 450 mcg/dL [facility] Iron Saturation 24 20 - 50 % [facility] Blood specimen (specimen) 04/07/2018 1:10 PM EDT 04/07/2018 1:19 PM EDT Narrative Resulting Agency Comment Spec In Lab Felton Lugo MD CHEMISTRY ORDERABLES Performing Organization Address [facility]/ZIP Co de Phone Number [facility] [place] [address] * (ABNORMAL) Basic Metabolic Panel (non-fasting) (04/07/2018 1:10 PM EDT) [facility] Glucose 40(Critic al) 65 - 199 mg/dL [facility] Comment: Called by: MIRIAN, Read back by: Ken Jang, Date/Time:04/07/18 13:53. Diabetes: >=200 mg/dL plus symptoms Blood Urea Nitrogen 70(H) 10 - 20 mg/dL [facility] Creatinine 3.72(H) 0.80 - 1.50 mg/dL [facility] Sodium 141 135 - 145 mmol/L [facility] Potassium 5.4(H) 3.5 - 5.0 mmol/L [facility] Comment: Please note: ??Patients with WBC >100,000 may have falsely elevated Potassium levels. ??For accurate Potassium quantification in these patients send serum separator tube (gold top) for subsequent determinations. ??Contact the Clinical Chemistry Laboratory if there are any questions. Chloride 107 98 - 107 mmol/L [facility] Carbon Dioxide 23 22 - 31 mmol/L [facility] Anion Gap 11 5 - 15 mmol/L [facility] Calcium 9.2 8.5 - 10.5 mg/dL [facility] Est Glomerular Filtration Rate 18(L) >=60 mL/min/1. 73 m?? [facility] Comment: The eGFR was calculated using the CKD-EPI equation. As with all creatinine based estimates of kidney function, eGFR values calculated with the CKD-EPI equation are not accurate in patients with acute kidney failure, extremes of body mass or the acutely ill. http://[employer] http://[employer]/[facility] MIAMInkf eGFR 21(L) >=60 mL/min/1. 73 m?? [facility] Comment: The eGFR was calculated using the CKD-EPI equation. As with all creatinine based estimates of kidney function, eGFR values calculated with the CKD-EPI equation are not accurate in patients with acute kidney failure, extremes of body mass or the acutely ill. http://[employer]/DHnkdep http://[employer]/DHnkf Blood specimen (specimen) 04/07/2018 1:10 PM EDT 04/07/2018 1:19 PM EDT Narrative Resulting Agency Comment Spec In Lab Felton Lugo MD CHEMISTRY ORDERABLES [facility] [place] [address] documented in this encounter Visit Diagnoses Diagnosis Stage 4 chronic kidney disease Anemia of chronic disease Anemia of other chronic disease Vitamin D deficiency Unspecified vitamin D deficiency Type 2 diabetes mellitus without complication, with long-term current use of insulin documented in this encounter Care Teams Deer Farmer Relationship Specialty Start Date End Date Adeola Villegas APRN PCP - General Family Medicine 01/13/17 02/05/19 documented as of this encounter
--- OUTSIDE RECORDS SUMMARY | 2024-12-05 12:43 | XMS_ITS | Encounter Summary ---
Author Organization [facility] Address [facility] [place] [address] Care Team Providers Care Pewter Fabricator Name Role Phone Bakari Adeola Sanchez APRN Primary Care Provider Reason for Visit * Reason Onset Date Comments Other 06/02/2018 Encounter Details Date Type Department Care Team (Late st Contact Info) Description 06/02/2018 Telephone Solid Organ Transplant at [facility] [place] [address] Ruby Padilla MSW [facility] [id number] Other Social History Tobacco Use Types Packs/Day Years Used Date Smoking Tobacco: Every Day Cigarettes Smokeless Tobacco: Never Sex and Gender Information Value Date Recorded Sex Assigned at Not on file Gender Identity Not on file Sexual Orientation Not on file documented as of this encounter Miscellaneous Notes * Telephone Encounter - Ruby Padilla MSW - 06/03/2018 10:46 AM EDT Social Work Transplant Assessment Met with Mr. Bruner and his supportive significant other in Transplant Clinic. Mr. Bruner is is very open about being quite overwhelmed and concerned regarding the financial impact of transplant surgery and recovery. Support to his concerns and did spend time attempting to partialize and problem solve. Patient is very engaged and and thoughtful about all the issues involved but identified more barriers than solutions. Advance Directives; Discussed and Mr. Bruner did want to do a new set and these were provided to himwith the reminder to bring them back for scanning into medical record. Family/Community Supports: Mr. Bruner confirms his significant other is a primary support. He does have several brothers and a mother and extended family but does not like to bother his mother and views himself as the support for his brothers. He has a son who has issues and requires his support in may ways having survived childhood leukemia, and a grown daughter but also has trouble allowing the idea that they will help him. He denies other groups or organizations but does report many friends. Education/Finances: Mr. 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 He has enough money to just make his bills and deal with the regular need to deal with crises or help family members. He has a short term disability policy but it is based on a lower than his average level of pay. He also has an [employer] policy but believes it only covers cancer, but he will look into it.We did discuss that since transplant is not likely in the next 6-12 weeks he has some time and we tried to strategize building in some savings and perhaps paying off a car. He is skeptical that he could make it. We also did discuss identifying if social security disability would provide equivalent or greater support than short term disability during transplant recovery and he was given contact information to identify the amount of money and criteria involved. Anxiety and barriers remain high for Mr. Bruner feeling he can manage things. Also concerned about 20% co-insurance and he is given information on requesting assistance/payment plan for [facility] and for [facility] [place] [facility] [place] Function: Mr. Bruner is independent in his ADls and activities and uses no DME. Compliance/Coping: not on dialysis, notes from CKD clinic indicate he is engaged with care and he reported good understanding of class but has a hard time focusing on the how to manage his disease now. He may be displacing fear or anxiety as he did not want to talk much about coping. 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 Mental Health: denies history or current symptoms or treatment of depression, anxiety, trauma, or other organic issues. Does state he wouldn't see the benefit to seeing a mental health professional. He does talk to his significant other and might be willing to check in with licensed clinical social worker. Affect isbright and engaged and though mildly perseverative no clear panic or unmanageable anxiety, no pressured speech thought content is logical and linear. Substance Use: Tobacco: currently smokes about 1/2 - 1pack per day. [place] contact the [place], has the contactinformation plans to use patches and is willing to pursue smoking cessation. ETOH: rarely a shot every months of [place]. Denies ever having been advised or trying to cut down, any treatment or DUIs. Marijuana: smokes daily. Has a medical card. Is willing to consider edibles Other: confirms a very remote history of trying substances a few times. No dependency, legal issuesor treatment. States he could and would be willing to pass a drug test Assessment: Very pleasant engaged gentleman who does have good supports but appears stuck on financial concerns that will need to be worked through. May suggest on going social work to see if he can shift from barrier view to processing impact and decisions for next step of care of his kidney disease. Will request input from team. documented in this encounter Plan of Treatment Not on file documented as of this encounter Visit Diagnoses Not on filedocumented in this encounter Care Teams Pewter Fabricator Relationship Specialty Start Date End Date Adeola Villegas APRN PCP - General Family Medicine 01/13/17 02/05/19 documented as of this encounter
--- OUTSIDE RECORDS SUMMARY | 2024-12-05 12:43 | XMS_ITS | Encounter Summary ---
[facility] [place] [address] Care Team Providers Care Mri Supervisor Name Role Phone Adeola Villegas APRN Primary Care Provider Encounter Details Date Type Department Care Team (Late st Contact Info) Description 08/09/2018 External Results [place] [address] Social History Tobacco Use Types Packs/Day Years [...] Name Priority Date/Time Associated Diagnosis Comments ECG SCAN Routine 08/09/2018 documented in this encounter Results * Scan Doc: ECG (08/09/2018) Historical Provider MD JOYNER MGR SCAN EX T ORDR/RSLT documented in this encounter Visit Diagnoses Not on filedocumented in this encounter Care Teams Mri Supervisor Relationship Specialty Start Date End Date Adeola Villegas APRN PCP - General Family Medicine 01/13/17 02/05/19 documented as of this encounter
--- OUTSIDE RECORDS SUMMARY | 2024-12-05 12:43 | XMS_ITS | Encounter Summary ---
Author Organization [facility] Address [facility] [place] [address] Care Team Providers Care Pattern Attendant Name Role Phone Bakari Adeola Laura DUNN Primary Care Provider Reason for Visit * Reason Comments Chronic Kidney Disease Kidney Transplant Evaluation Encounter Details Date Type Department Care Team (Late st Contact Info) Description 06/02/2018 11:00 AM EDT Office Visit [place] [address] Irving Paulson MD [facility] [place] [address] [facility] [place] [address] Sandra Pacheco RN CKD (chronic kidney disease) stage 4, GFR 15-29 ml/min; Pre-transplant evaluation for CKD (chronic kidney disease); Stage 4 chronic kidney disease; Pre-transplant evaluation for kidney transplant Social History Tobacco Use Types Packs/Day Years Used Date Smoking Tobacco: Every Day Cigarettes Smokeless Tobacco: Never Sex and Gender Information Value Date Recorded Sex Assigned at Not on file Gender Identity Not on file Sexual Orientation Not on file documented as of this encounter Last Filed Vital Signs Vital Sign Reading Time Taken Comments Blood Pressure 152/70 06/02/2018 10:55 AM EDT Pulse 60 06/02/2018 10:55 AM EDT Temperature 36.5 ??C (97.7 ??F) 06/02/2018 1 0:55 AM EDT Respiratory Rate - - Oxygen Saturation 100% 06/02/2018 10: 55 AM EDT Inhaled Oxygen Concentration - - Weight 93.8 kg (206 lb 12.8 oz) 018 10:55 AM EDT Height 173.4 cm (5' 8.27) 06/02/2018 1 0:55 AM EDT Body Mass Index 31.2 06/02/2018 10:55 AM EDT documented in this encounter Progress Notes * Irving Paulson MD - 06/02/2018 11:00 AM EDT Initial Evaluation: Transplantation Date: 06/02/2018 Patient: Gerson Bruner Organ Type: Kidney History of Present Illness: Mr. Gerson Bruner is an 52 y.o. White Not nor male with past medical history of CRF secondary to DIABETES MELLITUS - TYPE II. Patient referred by Dr Edge. Mr. Gerson Bruner present to our multidisciplinary Kidney transplant information session for evaluation and instruction. Patient start date for dialysis and number of days is (Not currently on dialysis). The dialysis centerthe patient received their treatment from is: (Not currently on dialysis). Reason for referral: Evaluation for Kidney Transplantation. He attended our 120 min multi disciplinary educational session in which we covered every aspect of transplantation including but not limited to: Comparison to dialysis Types of transplanted kidney [...] and their side effects Evaluation and listing CMS/UNOS governmental regulations Surgery Complications Hospital stay Discharge and follow up Recipient expectations Patient Active Problem List Diagnosis Code ??? [...] ??? Proteinuria R80.9 ??? Elevated blood pressure [id number] ??? Essential hypertension I10 ??? CKD (chronic kidney disease) stage 4, GFR 15-29 ml/min N18.4 ??? 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 Diabetes mellitus ??? Herniation of lumbar intervertebral disc with radiculopathy 08/16/2015 L4-5 left Surgical hx: Left ear auricle, frozen SCC Extractions upper teeth Family History Problem Relation Age of Onset ??? Diabetes Mother ??? Cancer Father ??? Diabetes Paternal Grandmother ??? Heart Disease Paternal Grandfather Father colon CA Mother 75 yr old, diabetes, diverticulosis 54 yr old brother ? Healthy 53 yr old brother EtOHism, lives in [place] 44 yr old 1/2 brother, healthy no contact 1/2 brothers x 2 50 yr old sister chronic pain syndrome 31 yr old son with ALL; 30 yr old daughter Social History: Social History Substance Use Topics ??? Smoking status: Current Every Day Smoker Packs/day: 0.50 Types: Cigarettes ??? Smokeless tobacco: Never Used ??? Alcohol use Not on file Remarried this past April 27; 50 yr old no meds except Neurontin for restless legs syndrome, estradiol for menopause, And chronic Tramadol for neck pain Hx of both VD and uses medical marijuana Neg other illicit sex, drugs, piercing; has one tattoo [employer] Maintenance Dialysis History Patient has no recorded history of maintenance dialysis. CKD stage 4 creat 3.94 mg/dL, BUN 44 Vital Signs: BP 152/70 (BP Location (NBP): Right arm, Patient Position: Sitting, BP Cuff Sizes: Large Adult (32-43 cm)) Pulse 60 Temp 36.5 ??C (97.7 ??F) (Oral) Ht 173.4 cm (5' 8.27) Wt 93.8 kg (206 lb 12.8 oz) SpO2 100% BMI 31.2 kg/m2 Estimated body mass index is 31.2 kg/(m^2) as calculated from the following: Height as of this encounter: 173.4 cm (5' 8.27). Weight as of this encounter: 93.8 kg (206 lb 12.8 oz). Diagnosis: Encounter Diagnoses Name Primary? CKD (chronic kidney disease) stage 4, GFR 15-29 ml/min ??? Pre-transplant evaluation for CKD (chronic kidney disease) Allergies: Clindamycin; Gabapentin; and Penicillins Immunizations: Most Recent Immunizations Administered Date(s) Administered ??? Pneumococcal Polyvalent 23 04/15/2001 ??? Td, adult 10/30/1996 Current Meds: Your Medications These changes are accurate as of 06/02/18 11:21 AM. If you have any questions, ask your nurse or doctor. Continued medications, unchanged Dose Details aspirin 81 mg Tbec Take 81 mg by mouth daily. 81 mg Refills: 0 blood sugar diagnostic strips Strp Commonly known as: ONETOUCH ULTRA TEST 1 each by Other route 2 times daily (before meals). Dx code 250.02 uses insulin 1 each Quantity: 100 each Refills: 11 ciprofloxacin 500 mg Tab Commonly known as: CIPRO Take 500 mg by mouth 2 times daily. 500 mg Refills: 0 furosemide 40 mg Tab [...] 1 each Quantity: 100 each Refills: 11 LANTUS SOLOSTAR U-100 INSULIN 100 unit/mL (3 mL) pen Generic drug: insulin glargine Refills: 0 lisinopril 10 mg Tab Commonly known as: PRINIVIL;ZESTRIL Take 10 mg by mouth daily. 10 mg Refills: 0 metFORMIN 500 mg Tab Commonly known as: GLUCOPHAGE Take 500 mg by mouth 2 times daily (with meals). 500 mg Refills: 0 multivitamin Tab Commonly known as: THERAGRAN Take 1 tablet by mouth daily. 1 tablet Refills: 0 pregabalin 100 mg Cap Commonly known as: LYRICA Take 100 mg by mouth 2 times daily. 100 mg Refills: 0 Labs: Lab Results Component Value Date WBC 9.99 (External Lab) 05/17/2018 HCT 34.2 (External Lab) 05/17/2018 HGB 11.0 (External Lab) 05/17/2018 PLATELET 250 (External Lab) 05/17/2018 K 5.9 (External Lab) 05/19/2018 CREATININE 3.94 (External Lab) 05/19/2018 BUN 83 (External Lab) 05/19/2018 GLUCOSE 40 (External Lab) 05/19/2018 PHOS 4.8 (H) 04/07/2018 MAGNESIUM 0.99 01/13/2017 HA1C 7.4 (H) 04/07/2018 Urinalysis: Lab Results Component Value Date SPGRAVITYUA 1.011 04/07/2018 PHUADIP 5.0 04/07/2018 PROTEINUADIP 100 (A) 04/07/2018 GLUCOSEU Negative 04/07/2018 KETONESUA Negative 04/07/2018 UROBILIUADIP Normal 04/07/2018 BLOODUADIP Negative 04/07/2018 NITRATEUA Negative 04/07/2018 LEUKOESTERUA Negative 04/07/2018 WBCUA 0 04/07/2018 RBCU <1 04/07/2018 BILIRUBINUA Negative 04/07/2018 Serologies (CMV and EBV): HPI: Developing early renal failure symptoms - sleep disorder, nocturia, occasional itching, but easy fatigue, loss of stamina Has ED, early diabetic retinopathy, peripheral neuropathy to knees bilaterally, neg for CV disease,gastroparesis, or hypoglycemic unawareness ROS: Negative except that noted above in 12 organ systems review Physical Exam: Constitutional: healthy, alert, not in acute distress, well developed, well nourished, no cough, nodyspnea and no grunting or nasal flaring HENT: ENT exam normal, no neck nodes or sinus tenderness, normocephalic head, throat normal withouterythema or exudate, airway not compromised and sinuses non-tender Head: Normocephalic, without obvious abnormality, atraumatic, sinuses nontender to percussion Eyes: conjunctivae/corneas clear. PERRL, EOM's intact. Fundi benign. Neck: supple, no adenopathy, thyroid normal in size, no nodules or tenderness and carotids normal upstroke, no bruits Cardiovascular: CVS exam BP noted to be well controlled today in office, S1, S2 normal, no gallop, no murmur, chest clear, no JVD, no HSM, no edema Pulmonary/Chest: Normal chest wall and respirations. Clear to auscultation. Abdominal: soft, non-tender, without masses or organomegaly, distended, normal bowel sounds, without guarding, without rebound, no masses palpated and no hepatosplenomegaly Musculoskeletal: Spine ROM normal. Muscular strength intact. 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 Gerson Bruner is a Good candidate for Kidney transplantation. Advantages and disadvantages of transplantation were reviewed. Discussed the potential complications, particularly in regard to the medical complications that might occur after receiving a transplant. I addressed issues of follow-upcare and the need for lifelong compliance with medical treatment plan. Lastly I discussed the need for immunosuppressive therapy and the risk associated with this treatment. Functional Status: 80% Normal activity with effort: some symptoms of disease Socioeconomic Status: Working for Income: Yes Primary Insurance: Payor: [employer] [place] / Plan: [facility] [place] / Product Type: *No Product type* / [place] Citizen: yes Recommendations: I discussed with Mr. Gerson Bruner about his Kidney organ failure and the need for renal replacement therapy. We discussed the option of transplantation as well as the advantages of a living donor versus donor in regards to renal transplantation. The following testing should be obtained: Needs ABIs/TBIs, if abnl CT angio NeedsEKG Needs Dobutamine Stress Test Needs Chest X-Ray Needs PFT Needs Dental Exam Needs Vaccines: Flu, Pneumovax, Hep B Series, Tetanus, Shingles Needs PSA/JOVAN Needs Serologies Needs Tissue Typing Needs Eye Exam I surmise he appears to have good understanding of his medical condition and the transplant process. Discussion with the patient and/or family concerned the following: ? Diagnostic results or recommended studies ? Prognosis; ? Risks and benefits of management; ? Instructions for management; ? Compliance with treatment; ? Risk factor reduction; ? Patient and family education. Total time 120 minutes > 50% in direct face to face educational guidance counselor. IRVING PAULSON MD * Sandra Pacheco RN - 06/02/2018 11:00 AM EDT I met with Gerson Bruner and Melissa to discuss the evaluation for kidney transplant process. We discussed: Required Testing: Up to date Immunizations: Tetanus, [id number], Kwqajma05, shingles, Hep B series, and yearly flu Healthcare Maintenance: Yearly physical, colonoscopy ([facility] 09/2016), Cardiac: EKG and Cardiac stress test every other year while on the wait list Labs: Serologies, ABO, and tissue typing Vascular: [facility]: Chest X-ray Other testing may be needed based on the evaluations of the rest of the team. After all required testing has been completed Gerson Bruner will return to clinic (in about 3 months) for a final evaluation and education prior to being added to the kidney transplant wait list. I also discussed with Gerson Bruner the importance of contacting us if there are any changes in her health that could delay her evaluation or effect her candidacy for kidney transplant. All questions were answered regarding the kidney transplant evaluation process. * Renetta Finley [facility] - 06/02/2018 11:00 AM EDT Encounter Date: June 02, 2018 Mr. Gerson Bruner is a 52 y.o. male seen for a medication review as part of his kidney transplant work-up. S: Met with robert and Melissa to review current medications and discuss post- transplant medications. Completed the Morisky 8 Item Adherence Questionaire to better better quantify the patient's probability to maintain compliance with a post kidney transplant drug regimen. Mr. Gerson Bruner scored 7 of 8 predicting moderate adherence. The Morisky scale has been validated in the post transplant population. Yes = 0 points, No = 1 point Score 1 - Do you sometimes forget to take your medicine? No = 1 2 - People sometimes miss taking their medicines for reasons other than forgetting. Thinking over the past 2 weeks, were there any days when you did not take your medicine? No = 1 3 - Have you ever cut back or stopped taking your medicine without telling your doctor because you felt worse when you took it? No = 1 4 - When you travel or leave home, do you sometimes forget to bring along your medicine? No = 1 5 - Did you take all your medicines yesterday? (reverse scoring) Yes = 1 6 - When you feel like your symptoms are under control, do you sometimes stop taking your medicine? No = 1 7 - Taking medicine every day is a real inconvenience for some people. Do you ever feel hassled about sticking to your treatment plan? Yes = 0 8 - How often do you have difficulty remembering to take all your medicine? __ A. Never/rarely A = 1 __ B. Once in a while B - E = 0 __ C. Sometimes __ D. Usually __ E. All the time Rarely = 1 Scores: <6 = low adherence, 6-7 = medium adherence, 8 = high adherence Moricyril DE, Antwon RUEDA, Martha DM. Concurrent and predictive validity of a self- reported measure of medication adherence. Med Care. 1986;24:67-74. * Of note, I'm not entirely certain how seriously Mr. Bruner took this questionnaire. He frequently made statements along the lines of I bet this is what you want me to answer. I assured him that heshould answer truthfully about his medication habits, but I'm not sure I got the most honest responses. How often or do you run out of one or more of your prescription medications before getting a new refill? Mr. Bruner states that he has run out of his pregabalin prescription in the past, but it is related to his primary care provider not renewing the prescription in time. He also reports some issues withhis outpatient pharmacy ([facility]), where they have to give him a partial fill from time to time because they do not have enough of a medication in stock. He seemed to get very pertur bed by this. How often or do you have difficulty affording your prescription medications? Mr. Bruner denies any difficulty affording his prescription medications. Allergies: Clindamycin; Gabapentin; and Penicillins Current Medications: Medication Sig ??? insulin detemir U-100 (LEVEMIR) Solution Inject 50 Units subcutaneously nightly. ??? ferrous sulfate 325 mg (65 mg iron) Tablet, Delayed Release (E.C.) Take 325 mg by mouth daily. ??? aspirin 81 mg Tablet, Delayed Release (E.C.) Take 81 mg by mouth daily. ??? pregabalin (LYRICA) 100 mg Capsule Take 200 mg by mouth 2 times daily. ??? lisinopril (PRINIVIL;ZESTRIL) 10 mg Tablet Take 10 mg by mouth daily. ??? multivitamin (THERAGRAN) Tablet Take 1 tablet by mouth daily. ??? furosemide (LASIX) 40 mg Tablet Take 1 tablet by mouth daily. Assessment/plan: 1. There are no absolute medication contraindications noted to proceed with transplant surgery. Of note, Mr. Bruner had mentioned multiple times that he did not like taking medications. He believes that if a person takes more than 5 medications, they end up cancelling each other out. When I reassured him that this was not necessarily the case, his response was how would I know. We had a long discussion that we use a medication protocol that has been validated in many, many patients and don't just prescribe medications without knowing how they react with the body and interact with each other.He expressed understanding, but states that he is still skeptical and prefers to use medications sparingly and with caution. 2. Mr. Gerson Bruner was ranked moderate adherence to his medication regimen based on the Morisky 8 Item Adherence scale. 3. The need for skilled nursing medication and potential adjustment of medications post-transplant were discussed. A handout reviewing potential transplant medication side effects, dosing and pertinent issues was supplied as a reference. 4. Patient was provided with handout reviewing post-transplant discharge medication costs. 5. Will remain available for any medication questions RENETTA FINLEY RPH * Priya King, ADITI - 06/02/2018 11:00 AM EDT TRANSPLANT NUTRITION Initial Transplant Note This technical writer and editor met with Gerson Bruner a 52 y.o. year old male on 06/02/2018 for nutrition assessment as part of kidney transplant work-up. Patient and attended the Kidney Transplant Information session and then they met with members of the transplant team. Past Medical History: Diagnosis Date ??? Diabetes mellitus ??? Herniation of lumbar intervertebral disc with radiculopathy 08/16/2015 L4-5 left * s/p cholecystectomy Diabetic History: DM Type 2 on insulin; he was diagnosed ~32 years ago; last HA1C was 7.4% in March 2018 Dialysis History: not yet requiring dialysis Food Record: B -> coffee, 2 before he leaves home and then another 3 or so throughout the day. He may have a toast or donut around 10:00AM. L -> s/w or salad from home or nearby work; D -> protein, veg, starch; he states that he has about a 6-8oz portion of protein at dinner meal He may also drink unsweetened iced tea during the day; drinks very little water. Has fruits for snacks; no junk food. Meal prep is a joint effort; they seldom go out to eat. He doesn't drink much milk; just in cereal. Social History Substance Use Topics ??? Smoking status: Current Every Day Smoker Packs/day: 0.50 Types: Cigarettes ??? Smokeless tobacco: Never Used ??? Alcohol use Patient states very seldom * Household: Lives with his Melissa, who also works at [employer] taking photos of the cars for ads. 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 insulin detemir U-100 (LEVEMIR) Solution Inject 50 Units subcutaneously nightly. ??? ferrous sulfate 325 mg (65 mg iron) Tablet, Delayed Release (E.C.) Take 325 mg by mouth daily. ??? aspirin 81 mg Tablet, Delayed Release (E.C.) Take 81 mg by mouth daily. ??? pregabalin (LYRICA) 100 mg Capsule Take 200 mg by mouth 2 times daily. ??? lisinopril (PRINIVIL;ZESTRIL) 10 mg Tablet Take 10 mg by mouth daily. ??? multivitamin (THERAGRAN) Tablet Take 1 tablet by mouth daily. ??? furosemide (LASIX) 40 mg Tablet Take 1 tablet by mouth daily. 30 tablet 12 ??? Insulin [place], Disposable, 31 X 5/16 Needle Inject 1 each subcutaneously 2 times daily (before meals). 100 each 11 ??? Blood Sugar Diagnostic (ONE TOUCH ULTRA TEST) Strip 1 each by Other route 2 times daily (beforemeals). Dx code 250.02 uses insulin 100 each 11 ??? Lancets Misc Inject 1 each subcutaneously 2 times daily (before meals). Dx code 250.02 uses insulin 100 each 11 No current facility-administered medications for this visit. Anthropometrics Height: 173.4cm (68.3) Weight: 93.8kg (206.8#) BMI: 31 IBW: ~165# %IBW: 125% Recent weight change:quite stable; patient weighed same in 2014 Lab Results Component Value Date HGB 11.0 (External Lab) 05/17/2018 HCT 34.2 (External Lab) 05/17/2018 NA 144 (External Lab) 05/19/2018 K 5.9 (External Lab) 05/19/2018 BUN 83 (External Lab) 05/19/2018 CREATININE 3.94 (External Lab) 05/19/2018 GLUCOSE 40 (External Lab) 05/19/2018 CALCIUM 8.7 (External Lab) 05/19/2018 PHOS 4.8 (H) 04/07/2018 ALBUMIN 3.7 04/07/2018 Nutritional Concerns: Patient at low nutrition risk. Patient with excellent food intake; 100% of usual intake. Body weight stable. No current GI symptoms except occasional mild acid reflux. Normal functional capacity. Serum albumin >3.5; BMI is > 25; suggested decrease portions at dinner meal. 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 Assessment/Plan: There are no nutritional contraindications to transplant noted. Discussed diet modifications post kidney transplant and rationale. Provided printed information as reinforcement of our discussion: Potential Nutrition Issues after Transplant Due to medication Side Effects. Discussed rationale for Tums with meals. We also discussed foods rich in potassium and provided him with the list of low, medium, and high (avoid) foods. Good comprehension verbalized: means for contact provided. Plan communicated to Healthcare Administration Intern via Documentation in patient's transplant medical record. Will also be discussed at the Pre-Transplant Multidisciplinary Team meeting. Remain available for questions/concerns. documented in this encounter Plan of Treatment Not on file documented as of this encounter Procedures Procedure Name Priority Date/Time Associated Diagnosis Comments ABORH RECHECK STATUS Routine 06/02/2018 3:22 PM EDT HSV 1 AND 2 IGG ANTIBODIES Routine 06/02/2018 3:22 PM EDT CKD (chronic [...] kidney disease Pre-transplant evaluation for kidney transplant LATRICE-ALVARADO VIRUS ANTIBODIES Routine 06/02/2018 3:22 PM EDT CKD (chronic kidney disease) stage 4, GFR 15-29 ml/min Pre-transplant evaluation for CKD (chronic kidney disease) Stage 4 chronic kidney disease Pre-transplant evaluation for kidney transplant SYPHILIS ANTIBODY SCREEN WITH REFLEX Routine 06/02/2018 3:22 PM EDT CKD (chronic kidney disease) stage 4, GFR 15-29 ml/min Pre-transplant evaluation for CKD (chronic kidney disease) Stage 4 chronic kidney disease Pre-transplant evaluation for kidney transplant ABO/RH TYPING Routine 06/02/2018 3:22 PM EDT CKD (chronic kidney disease) stage 4, GFR 15-29 ml/min Pre-transplant evaluation for CKD (chronic kidney disease) Stage 4 chronic kidney disease Pre-transplant evaluation for kidney transplant HEPATITIS C RNA, QUANTITATIVE, PCR Routine 06/02/2018 3:22 PM EDT CKD (chronic kidney disease) stage 4, GFR 15-29 ml/min Pre-transplant evaluation for CKD (chronic kidney disease) Stage 4 chronic kidney disease Pre-transplant evaluation for kidney transplant C-PEPTIDE Routine 06/02/2018 3:22 PM EDT CKD (chronic kidney disease) stage 4, GFR 15-29 ml/min Pre-transplant evaluation for CKD (chronic kidney disease) Stage 4 chronic kidney disease Pre-transplant evaluation for kidney transplant TOXOPLASMA ANTIBODY, IGG Routine 06/02/2018 3:22 PM EDT CKD (chronic kidney disease) stage 4, GFR 15-29 ml/min Pre-transplant evaluation for CKD (chronic kidney disease) Stage 4 chronic kidney disease Pre-transplant evaluation for kidney transplant [place]EN, 4TH [place] [place]PE RFORMABLE Routine 06/02/2018 3:22 PM EDT CKD (chronic kidney disease) stage 4, GFR 15-29 ml/min Pre-transplant evaluation for CKD (chronic kidney disease) Stage 4 chronic kidney disease Pre-transplant evaluation for kidney transplant HEPATITIS B SURFACE ANTIBODY Routine 06/02/2018 3:22 PM EDT CKD (chronic kidney disease) stage 4, GFR 15-29 ml/min Pre-transplant evaluation for CKD (chronic kidney disease) Stage 4 chronic kidney disease Pre-transplant evaluation for kidney transplant HEPATITIS B SURFACE ANTIGEN Routine 06/02/2018 3:22 PM EDT CKD (chronic kidney disease) stage 4, GFR 15-29 ml/min Pre-transplant evaluation for CKD (chronic kidney disease) Stage 4 chronic kidney disease Pre-transplant evaluation for kidney transplant CMV ANTIBODY, IGG Routine 06/02/2018 3:2 2 PM EDT CKD (chronic kidney disease) stage 4, GFR 15-29 ml/min Pre-transplant evaluation for CKD (chronic kidney disease) Stage 4 chronic kidney disease Pre-transplant evaluation for kidney transplant APTT Routine 06/02/2018 3:22 PM EDT CKD (chronic kidney disease) stage 4, GFR 15-29 ml/min Pre-transplant evaluation for CKD (chronic kidney disease) Stage 4 chronic kidney disease Pre-transplant evaluation for kidney transplant PROTHROMBIN TIME Routine 06/02/2018 3:22 PM EDT CKD (chronic kidney disease) stage 4, GFR 15-29 ml/min Pre-transplant evaluation for CKD (chronic kidney disease) Stage 4 chronic kidney disease Pre-transplant evaluation for kidney transplant ANTIBODY SCREEN Routine 06/02/2018 3:22 PM EDT CKD (chronic kidney disease) stage 4, GFR 15-29 ml/min Pre-transplant evaluation for CKD (chronic kidney disease) Stage 4 chronic kidney disease Pre-transplant evaluation for kidney transplant [place] [place] Routine 06/02/2018 3:22 PM EDT CKD (chronic kidney disease) stage 4, GFR 15-29 ml/min Pre-transplant evaluation for CKD (chronic kidney disease) Stage 4 chronic kidney disease Pre-transplant evaluation for kidney transplant VARICELLA ZOSTER ANTIBODY, IGG Routine 06/02/2018 3:22 PM EDT CKD (chronic kidney disease) stage 4, GFR 15-29 ml/min Pre-transplant evaluation for CKD (chronic kidney disease) Stage 4 chronic kidney disease Pre-transplant evaluation for kidney transplant PSA (ULTRASENSITIVE) Routine 06/02/2018 3:22 PM EDT CKD (chronic kidney disease) stage 4, GFR 15-29 ml/min Pre-transplant evaluation for CKD (chronic kidney disease) Stage 4 chronic kidney disease Pre-transplant evaluation for kidney transplant documented in this encounter Results * ABORH Recheck Status (06/02/2018 3:22 PM EDT) Pathologist [facility] ABORH Recheck Order Order Placed [facility] ABORH Type Recheck not performed [facility] Blood specimen (specimen) 06/02/2018 3:22 PM EDT 06/02/2018 3:34 PM EDT Narrative Resulting Agency Comment Spec In Lab Irving Paulson MD BLOOD BANK LAB OR DERABLES [facility] [place] [address] * Antibody screen (06/02/2018 3:22 PM EDT) Ab Screen Interp Negative [facility] Expires at [id number] on: 07/17/2018 [facility] Blood specimen (specimen) 06/02/2018 3:22 PM EDT 06/02/2018 3:34 PM EDT Narrative Resulting Agency Comment Spec In Lab Irving Paulson MD BLOOD BANK LAB OR DERABLES Performing Organization Address City/[facility]/ZIP Co de Phone Number [facility] [place] [address] * ABO/Rh Typing (06/02/2018 3:22 PM EDT) ABORH Type A Pos [facility] Blood specimen (specimen) 06/02/2018 3:22 PM EDT 06/02/2018 3:34 PM EDT Narrative Resulting Agency Comment Spec In Lab Irving Paulson MD BLOOD BANK LAB OR DERABLES Performing Organization Address [facility]/ZIP Co de Phone Number [facility] [place] [address] * C-peptide (06/02/2018 3:22 PM EDT) C-Peptide 2.7 0.8 - 5.2 ng/mL [facility] Blood specimen (specimen) 06/02/2018 3:22 PM EDT 06/02/2018 3:48 PM EDT Narrative Resulting Agency Comment Spec In Lab Irving Paulson MD CHEMISTRY ORDERAB LES Performing Organization Address City/[facility]/ZIP Co de Phone Number [facility] [place] [address] * PSA (06/02/2018 3:22 PM EDT) Prostate Specific Antigen (Ultrasensitiv e) 0.92 0.00 - 4.00 ng/mL [facility] Blood specimen (specimen) 06/02/2018 3:22 PM EDT 06/02/2018 3:48 PM EDT Narrative Resulting Agency Comment Spec In Lab Irving Paulson MD CHEMISTRY ORDERAB LES Performing Organization Address City/[facility]/ZIP Co de Phone Number [facility] [place] [address] * Varicella zoster Antibody, IgG (06/02/2018 3:22 PM EDT) Varicella Zoster Antibody IgG Pos [facility] Blood specimen (specimen) 06/02/2018 3:22 PM EDT 06/03/2018 7:12 AM EDT Narrative Resulting Agency Comment Spec In Lab Irving Paulson MD IMMUNOLOGY ORDERA BLES Performing Organization Address [facility] Co de Phone Number [facility] [place] [address] * (ABNORMAL) Toxoplasma Antibody, IgG (06/02/2018 3:22 PM EDT) Toxoplasma Antibody IgG Positive( A) Negative [facility] Blood specimen (specimen) 06/02/2018 3:22 PM EDT 06/03/2018 7:12 AM EDT Narrative Resulting Agency Comment Spec In Lab Irving Paulson MD IMMUNOLOGY ORDERA BLES Performing Organization Address City/[facility]/ZIP Co de Phone Number [facility] [place] [address] * Syphilis Screening Antibody with reflex RPR (06/02/2018 3:22 PM EDT) Syphilis IgG/IgM Negative Negative [facility] Blood specimen (specimen) 06/02/2018 3:22 PM EDT 06/02/2018 3:48 PM EDT Narrative Resulting Agency Comment Spec In Lab Irving Paulson MD CHEMISTRY ORDERAB LES Performing Organization Address City/[facility]/ZIP Co de Phone Number [facility] [place] [address] * HIV Screen, 4th Generation (06/02/2018 3:22 PM EDT) HIV Ab/Ag Screen Negative Negative [facility] Comment: This 4th Generation HIV [...] Narrative Resulting Agency Comment Spec In Lab Irving Paulson MD CHEMISTRY ORDERAB LES Performing Organization Address [facility] Co de Phone Number [facility] [place] [address] * (ABNORMAL) HSV 1 and 2 IgG Antibodies (06/02/2018 3:22 PM EDT) Pathologist [facility] HSV Type 1 Ab, IgG Pos(A) Neg [facility] HSV Type 2 Ab, IgG Neg Neg [facility] Blood specimen (specimen) 06/02/2018 3:22 PM EDT 06/03/2018 7:12 AM EDT Narrative Resulting Agency Comment Spec In Lab Irving Paulson MD IMMUNOLOGY ORDERA BLES Performing Organization Address [facility]/ZIP Co de Phone Number [facility] [place] [address] * (ABNORMAL) Latrice-Alvarado Virus Antibodies (06/02/2018 3:22 PM EDT) EBV (VCA) IgG Ab Pos(A) Neg [facility] EBV (VCA) IgM Ab Neg Neg [facility] EBNA Antibodies Pos(A) Neg [facility] EBV Interpretation Results suggest past infection. [facility] Comment: In most populations, at least 90% of the adult population will have been infected with EBV some time in the past and therefore, will be positive for anti-VCA/IgG and anti-EBNA. Antibodies to EBNA develop 6-8 weeks after primary infection and remain present for life. Presence of VCA/IgM antibodies indicates recent primary infection with EBV. Blood specimen (specimen) 06/02/2018 3:22 PM EDT 06/03/2018 7:12 AM EDT Narrative Resulting Agency Comment Spec In Lab Irving Paulson MD IMMUNOLOGY ORDERA BLEAnil Performing Organization Address [facility] Co de Phone Number [facility] [place] [address] * CMV Antibody, IgG (06/02/2018 3:22 PM EDT) CMV IgG Negative Negative [facility] Blood specimen (specimen) 06/02/2018 3:22 PM EDT 06/03/2018 7:12 AM EDT Narrative Resulting Agency Comment Spec In Lab Irving Paulson MD IMMUNOLOGY ORDERA BLES Performing Organization Address [facility] Co de Phone Number [facility] [place] [address] * Hepatitis C RNA, quantitative, PCR (06/02/2018 3:22 PM EDT) HCV Viral Load <12 IU/mL [facility] HCV Viral Load Result: <12 IU/mL (Target not detected) Indication for Study: Hepatitis C Infection Analysis: The Damon RealTime HCV assay is an in vitro reverse health clinician polymerase chain reaction (RT-PCR)for the quantitation of hepatitis C viral (HCV) RNA in human serum or plasma (EDTA) from HCV-infected individuals. Sample: plasma (0.7 mL minimum volume) Method: [employer]on RealTime HCV Assay Linear Range: 12 IU/mL - 100,000,000IU/mL Note: The Damon RealTime HCV Assay has been approved by the U.S. Food and Drug Administration. [facility] Comment: [VERIFIED DATE]06.06.18 Verified By:Rajani Chatman (Electronic Signature) Blood specimen (specimen) 06/02/2018 3:22 PM EDT 06/06/2018 3:35 PM EDT Narrative Resulting Agency Comment Spec In Lab Irving Paulson MD MOLECULAR ORDERAB LES Performing Organization Address [facility] Co de Phone Number [facility] [place] [address] * Hepatitis C Antibody (06/02/2018 3:22 PM EDT) Hepatitis C Antibody Negative Negative [facility] Blood specimen (specimen) 06/02/2018 3:22 PM EDT 06/02/2018 3:48 PM EDT Narrative Resulting Agency Comment Spec In Lab Irving Paulson MD CHEMISTRY ORDERAB LES Performing Organization Address [facility] Co de Phone Number [facility] [place] [address] * Hepatitis B Surface Antigen (06/02/2018 3:22 PM EDT) Hepatitis B Surface Antigen Negative Negative [facility] Blood specimen (specimen) 06/02/2018 3:22 PM EDT 06/02/2018 3:48 PM EDT Narrative Resulting Agency Comment Spec In Lab Irving Paulson MD CHEMISTRY ORDERAB LES Performing Organization Address [facility] Co de Phone Number [facility] [place] [address] * Hepatitis B Surface Antibody (06/02/2018 3:22 PM EDT) Hepatitis B Surface Antibody, Quantitative <3.5 IU/L [facility] Comment: HepB Surface Ab Quant: Unvaccinated: < 8.5 IU/L Vaccinated: > 11.5 IU/L Hepatitis B Surface Antibody Negative [facility] Comment: Patient is presumed to be not vaccinated or immune to HBV infection. Expected Results: Vaccinated: Positive Unvaccinated: Negative Blood specimen (specimen) 06/02/2018 3:22 PM EDT 06/02/2018 3:48 PM EDT Narrative Resulting Agency Comment Spec In Lab Irving Paulson MD CHEMISTRY ORDERAB LES Performing Organization Address [facility] Co de Phone Number [facility] [place] [address] * Prothrombin Time (06/02/2018 3:22 PM EDT) Prothrombin Time 10.6 9.4 - 12.5 sec [facility] International Normalization Ratio 1.0 [facility] Comment: An INR <2.0 indicates [...] depending on clinical circumstances. Blood specimen (specimen) 06/02/2018 3:22 PM EDT 06/02/2018 3:48 PM EDT Narrative Resulting Agency Comment Spec In Lab Irving Paulson MD HEMATOLOGY ORDERA BLES Performing Organization Address [facility] de Phone Number [facility] [place] [address] * APTT (06/02/2018 3:22 PM EDT) Partial Thromboplastin Time 33 25 - 37 sec [facility] Comment: The PTT is NOT appropriate for heparin monitoring. Use the Anti-Xa level for heparin monitoring (HEP UFH) or LMWH monitoring (HEP LMW). A PTT less than 37 seconds generally indicates adequate hemostasis. Blood specimen (specimen) 06/02/2018 3:22 PM EDT 06/02/2018 3:48 PM EDT Narrative Resulting Agency Comment Spec In Lab Irving Paulson MD HEMATOLOGY ORDERA BLES Performing Organization Address [facility]/ZIP [place] [address] documented in this encounter Visit Diagnoses Diagnosis CKD (chronic kidney disease) stage 4, GFR 15-29 ml/min Chronic kidney disease, Stage IV (severe) Pre-transplant evaluation for CKD (chronic kidney disease) Other specified pre-operative examination Stage 4 chronic kidney disease Pre-transplant evaluation for kidney transplant Other specified pre-operative examination documented in this encounter Care Teams Pattern Attendant Relationship Specialty Start Date End Date Adeola Villegas APRN PCP - General Family Medicine 01/13/17 02/05/19 documented as of this encounter
--- OUTSIDE RECORDS SUMMARY | 2024-12-05 12:43 | XMS_ITS | Encounter Summary ---
Author Organization [facility] Address [facility] [place] [address] Care Team Providers Care Brick Tosser Name Role Phone Bakari Adeola Laura DUNN Primary Care Provider [phone] Encounter Details Date Type Department Care Team (Late st Contact Info) Description 05/20/2018 External Results Neph[place] [address] Marichuy So, RN Social History Tobacco Use Types Packs/Day Years Used Date Smoking Tobacco: Every Day Cigarettes Smokeless Tobacco: Never Sex and Gender Information Value Date Recorded Sex Assigned at Not on file Gender Identity Not on file Sexual Orientation Not on file documented as of this encounter Progress Notes * Marichuy So, VIDYA - 05/20/2018 9:06 AM EDT Lab results received and entered. Results for WILI BONILLA ( ) as of 05/20/2018 09:10 Ref. Range 04/07/2018 13:10 04/07/2018 15:00 05/19/2018 00:00 Sodium Unknown 141 144 (External Lab) Potassium Unknown 5.4 (H) 5.9 (External Lab) Chloride Unknown 107 111 (External Lab) CO2 Unknown 23 22 (External Lab) Anion Gap Latest Ref Range: 5 - 15 mmol/L 11 BUN Unknown 70 (H) 83 (External Lab) Creatinine Unknown 3.72 (H) 3.94 (External Lab) eGFR Unknown 18 (L) 16.19 (External Lab) eGFR Latest Ref Range: >=60 mL/min/1.73 m?? 21 (L) Glucose Lvl Unknown 40 (CRIT) 40 (External Lab) Calcium Unknown 9.2 8.7 (External Lab) Hemoglobin A1C Latest Ref Range: 4.3 - 5.6 % 7.4 (H) Est Avg Gluc Latest Units: mg/dL 166 Phosphorus Latest Ref Range: 2.5 - 4.5 mg/dL 4.8 (H) Albumin Latest Ref Range: 3.2 - 5.2 gm/dL 3.7 Ferritin Latest Ref Range: 30 - 400 ng/mL 83 Iron Latest Ref Range: 45 - 160 mcg/dL 59 TIBC Latest Ref Range: 250 - 450 mcg/dL 244 (L) Iron Saturation Latest Ref Range: 20 - 50 % 24 25-OH Vit D Total Latest Ref Range: 30 - 100 ng/mL 32 Total Prot Elec Latest Ref Range: 6.1 - 8.0 gm/dL 6.4 Albumin Elect Latest Ref Range: 3.60 - 6.00 gm/dL 3.83 Alpha1-Globulin Latest Ref Range: 0.10 - 0.30 gm/dL 0.22 Alpha2-Globulin Latest Ref Range: 0.40 - 0.90 gm/dL 0.82 Beta Globulin Latest Ref Range: 0.50 - 1.00 gm/dL 0.70 Gamma Globulin Latest Ref Range: 0.50 - 1.30 gm/dL 0.83 M1 Band Unknown None Detected U Protein Ran Latest Ref Range: 0 - 12 mg/dL 70 (H) U Albumin Latest Units: % total 77 U Globulin Latest Units: % total 23 U M Band Unknown None Detected Color UA Latest Ref Range: Yellow Yellow Appearance UA Latest Ref Range: Clear Clear Spec [place] UA Latest Ref Range: 1.002 - 1.030 1.011 pH UA Latest Ref Range: 5.0 - 8.0 5.0 Protein UA Latest Ref Range: Negative mg/dL 100 (A) Glucose UA Latest Ref Range: Negative mg/dL Negative Ketones UA Latest Ref Range: Negative mg/dL Negative Bilirubin UA Latest Ref Range: Negative mg/dL Negative Urobilinogen UA Latest Ref Range: Normal mg/dL Normal Blood UA Latest Ref Range: Negative mg/dL Negative Leukocytes UA Latest Ref Range: Negative mcL Negative Nitrite UA Latest Ref Range: Negative Negative WBC UA Latest Ref Range: 0 - 3 /HPF 0 RBC UA Latest Ref Range: 0 - 3 /HPF <1 Hyaline Cast UA Latest Ref Range: 0 - 2 /LPF 4 (H) Culture Reflexed Unknown No Prot/Cre Ratio Latest Units: ratio 1.3 U Creatinine Latest Units: mg/dL 55 U PEP Comments Unknown See Note documented in this encounter Plan of Treatment Not on file documented as of this encounter Procedures Procedure Name Priority Date/Time Associated Diagnosis Comments BASIC METABOLIC PANEL Routine 05/19/2018 documented in this encounter Results * (ABNORMAL) Basic Metabolic Panel (non-fasting) (05/19/2018) Glucose 40(Externa l Lab) Blood Urea Nitrogen 83(Externa l Lab) Creatinine 3.94(Exter nal Lab) Est Glomerular Filtration Rate 16.19(Exte rnal Lab) Sodium 144(Printing Screen Assembler al Lab) Potassium 5.9(Printing Screen Assembler al Lab) Chloride 111(Printing Screen Assembler al Lab) Carbon Dioxide 22(Externa l Lab) Calcium 8.7(Printing Screen Assembler al Lab) Blood specimen (specimen) 05/19/2018 Historical Provider CHEMISTRY ORDERAB LES documented in this encounter Visit Diagnoses Not on filedocumented in this encounter Care Teams Brick Tosser Relationship Specialty Start Date End Date Adeola Villegas APRN PCP - General Family Medicine 01/13/17 02/05/19 documented as of this encounter
--- OUTSIDE RECORDS SUMMARY | 2024-12-05 12:43 | XMS_ITS | Encounter Summary ---
Author Organization [facility] Address [facility] [place] [address] Care Team Providers Care Cardiac Rn Name Role Phone Bakari Adeola Laura DUNN Primary Care Provider Encounter Details Date Type Department Care Team (Late st Contact Info) Description 05/27/2018 Telephone [place] [address] Sandra Pacheco, RN Social History Tobacco Use Types Packs/Day Years Used Date Smoking Tobacco: Every Day Cigarettes Smokeless Tobacco: Never Sex and Gender Information Value Date Recorded Sex Assigned at Not on file Gender Identity Not on file Sexual Orientation Not on file documented as of this encounter Miscellaneous Notes * Telephone Encounter - Sandra Pacheco RN - 05/27/2018 2:15 PM EDT I contacted Gerson Bruner to get a brief history prior to scheduling for kidney transplant evaluation. Cause of Kidney Disease: DM II Dialysis: (Not currently on dialysis) Height: 5 9.5 Weight: 210 BMI: 31 Past Medical History: Diagnosis Date ??? Diabetes mellitus ??? 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 History Smoking Status ??? Current Every Day Smoker ??? Packs/day: 0.50 ??? Types: Cigarettes Smokeless Tobacco ??? Never Used History Drug Use ??? Yes ??? Special: Marijuana Do you have any dental issues, do you see a dentist regularly? One in the back that is bothersome (previous of root canal that still causing problems) Have you ever been in counseling or received psychiatric treatment? no Does your current income meet your monthly needs? yes Date of Transplant Evaluation: June 02, 2018 Demographics confirmed. documented in this encounter Plan of Treatment Not on file documented as of this encounter Visit Diagnoses Not on filedocumented in this encounter Care Teams Cardiac Rn Relationship Specialty Start Date End Date Adeola Villegas APRN PCP - General Family Medicine 01/13/17 02/05/19 documented as of this encounter
--- OUTSIDE RECORDS SUMMARY | 2024-12-05 12:43 | XMS_ITS | Encounter Summary ---
Author Organization [facility] Address [facility] [place] [address] Care Team Providers Care Custom Designer Name Role Phone Adeola Villegas APRN Primary Care Provider Encounter Details Date Type Department Care Team (Late st Contact Info) Description 05/13/2018 Telephone Nephrology [place] [address] Akua Rodriguez, RN Social History Tobacco Use Types Packs/Day Years Used Date Smoking Tobacco: Every Day Cigarettes Smokeless Tobacco: Never Sex and Gender Information Value Date Recorded Sex Assigned at Not on file Gender Identity Not on file Sexual Orientation Not on file documented as of this encounter Miscellaneous Notes * Telephone Encounter - Akua Rodriguez RN - 05/13/2018 3:46 PM EDT O. Called patient. Expected results for labs ordered for one month after his last CKD visit in March. Called to remind him to have the tests done at [facility] Or to call if he lost the requisitions or had them done already. documented in this encounter Plan of Treatment Not on file documented as of this encounter Visit Diagnoses Not on filedocumented in this encounter Care Teams Custom Designer Relationship Specialty Start Date End Date Adeola Villegas APRN PCP - General Family Medicine 01/13/17 02/05/19 documented as of this encounter
--- OUTSIDE RECORDS SUMMARY | 2024-12-05 12:43 | XMS_ITS | Encounter Summary ---
[place] [address] Care Team Providers Care Coal Handler Name Role Phone Adeola Villegas APRN Primary Care Provider Encounter Details Date Type Department Care Team (Late st Contact Info) Description 06/02/2018 1:30 PM EDT Office Visit [place] [address] Renetta Marx, [facility] Pre-transplant evaluation for kidney transplant Social History Tobacco Use Types Packs/Day Years Used Date Smoking Tobacco: Every Day Cigarettes Smokeless Tobacco: Never Sex and Gender Information Value Date Recorded Sex Assigned at Not on file Gender Identity Not on file Sexual Orientation Not on file documented as of this encounter Progress Notes * Sandra Pacheco, RN - 06/02/2018 1:30 PM EDT error documented in this encounter Plan of Treatment Not on file documented as of this encounter Visit Diagnoses Diagnosis Pre-transplant evaluation for kidney transplant Other specified pre-operative examination documented in this encounter Care Teams Coal Handler Relationship Specialty Start Date End Date Adeola Villegas APRN PCP - General Family Medicine 01/13/17 02/05/19 documented as of this encounter
--- OUTSIDE RECORDS SUMMARY | 2024-12-05 12:43 | XMS_ITS | Encounter Summary ---
Author Organization [facility] [place] [address] Care Team Providers Care Assistant Production Manager Name Role Phone Adeola Villegas APRN Primary Care Provider Encounter Details Date Type Department Care Team (Late st Contact Info) Description 05/27/2018 Telephone [place] [address] Sandra Pacheco, RN Social History Tobacco Use Types Packs/Day Years Used Date Smoking Tobacco: Every Day Cigarettes Smokeless Tobacco: Never Sex and Gender Information Value Date Recorded Sex Assigned at Not on file Gender Identity Not on file Sexual Orientation Not on file documented as of this encounter Miscellaneous Notes * Telephone Encounter - Sandra Pacheco, RN - 05/27/2018 2:04 PM EDT Let message for pt to discuss evaluation for kidney transplant. Sandra Pacheco RN Solid Organ Transplant documented in this encounter Plan of Treatment Not on file documented as of this encounter Visit Diagnoses Not on filedocumented in this encounter Care Teams Assistant Production Manager Relationship Specialty Start Date End Date Adeola Villegas APRN PCP - General Family Medicine 01/13/17 02/05/19 documented as of this encounter
--- OUTSIDE RECORDS SUMMARY | 2024-12-05 12:44 | XMS_ITS | Encounter Summary ---
Author Organization [facility] Address [facility] [place] [address] Care Team Providers Care Stud Sheep Farmer Name Role Phone Unavailable Primary Care Provider Unavailabl e Encounter Details Date Type Department Care Team (Late st Contact Info) Description 01/14/2010 - 01/14/2010 11:59 PM EDT Hospital Encounter Radiology Library at [facility], [place], [facility] [place] [address] Garrison Robles MD Pain Social History Tobacco Use Types Packs/Day Years Used Date Smoking Tobacco: Never Assessed Sex and Gender Information Value Date Recorded Sex Assigned at Not on file Gender Identity Not on file Sexual Orientation Not on file documented as of this encounter Medications at Time of Discharge Medication Sig Dispensed Refills Start Date End Date CIS Free Text Med - Aspirin 11/25/2006 07/19/2014 insulin glargine (LANTUS) 100 unit/mL injection 45units, SQ, QPM 11/25/2006 07/19/2014 insulin lispro (HUMALOG) 100 unit/mL injection Sliding Scale - Glucose, SQSliding Scale - Glucose, SQ. If blood glucose is 100 to 150 take 4 Units units of insulin.If blood glucose is 151 to 200 take 6 Units units of insulin.If blood glucose is 201 to 250 take 7 units of insulin.If blood glucose is 251 to above take 9 units of insulin. 11/25/2006 07/19/2014 lisinopril (PRINIVIL;ZESTRIL) 20 mg tablet 20mg, PO, Once daily 11/25/2006 015 glucagon, human recombinant, (GLUCAGEN HYPOKIT) 1 mg injection 1MG, SQ, prn 11/25/200606/26 simvastatin (ZOCOR) 80 mg tablet 80MG = 1 Tablet(s), PO, Once daily 11/25/2006 07/19/2014 tadalafil (CIALIS) 10 mg tablet 11/25/2006 07/19/2014 exenatide (BYETTA) 5 mcg/0.02 mL injection 5MCG/0.02ML, SQ, Twice daily 11/25/2006 07/19/2014 hydroCODone-acetaminoph en (VICODIN) 5-500 mg per tablet 1-2 Tablet(s), PO, QHS 11/25/200607/19 documented as of this encounter Plan of Treatment Not on file documented as of this encounter Procedures Procedure Name Priority Date/Time Associated Diagnosis Comments FILM LIBRARY STORAGE ONLY DX SPINE Routine 01/14/2010 12:00 AM EDT Pain documented in this encounter Results * Film Library- Storage only DX Spine (01/14/2010 12:00 AM EDT) Narrative MADDY - 08/05/2015 9:28 PM EDT See PACS for result report. Garrison Robles MD G FILM LIBRARY ORD ERABLES [place], [place] documented in this encounter Visit Diagnoses Diagnosis Pain Generalized pain documented in this encounter
--- OUTSIDE RECORDS SUMMARY | 2024-12-05 12:44 | XMS_ITS | Encounter Summary ---
Author Organization [facility] Address [facility] [place] [address] Care Team Providers Care Entertainment Production Professional Name Role Phone Adeola Villegas APRN Primary Care Provider Encounter Details Date Type Department Care Team (Latest Contact Info) Description 01/13/2017 2:05 PM EDT - 01/13/2017 11:59 PM EDT Hospital [place] [id number] Lurdes Espinosa MD [facility] [place] [address] CKD (chronic kidney disease) stage 3, GFR 30-59 ml/min; Proteinuria; Type 2 diabetes mellitus with complication, with long-term current use of insulin Discharge Disposition: Home Social History Tobacco Use Types Packs/Day Years Used Date Smoking Tobacco: Every Day Cigarettes Smokeless Tobacco: Never Sex and Gender Information Value Date Recorded Sex Assigned at Not on file Gender Identity Not on file Sexual Orientation Not on file documented as of this encounter Medications at Time of Discharge Medication Sig Dispensed Refills Start Date End Date pregabalin (LYRICA) 100 mg CapsuleIndications:CK D (chronic kidney disease) stage 3, GFR 30-59 ml/min,Other specified diabetes mellitus with unspecified complications,Essenti al hypertension with goal blood pressure less than 130/80,Hyperkalemia Take 100 mg by mouth 2 times daily. 03/14/2024 metFORMIN (GLUCOPHAGE) 500 mg Tablet Take 500 mg by mouth 2 times daily (with meals). 0 07/26/2015 06/02/2018 LANTUS SOLOSTAR Insulin Pen 0 08/14/2015 06/02/2018 lisinopril (PRINIVIL;ZESTRIL) 10 mg Tablet Take 10 mg by mouth daily. 07/04/2018 multivitamin (THERAGRAN) Tablet Take 1 tablet by mouth daily. 02/25/2024 furosemide (LASIX) 40 mg Tablet Take 1 tablet by mouth daily. 30 tablet 12 06/13/2015 10/24/2018 Insulin [place], Disposable, 31 X 5/16 Needle Inject 1 each subcutaneously 2 times daily (before meals). 100 each 07/19/2014 02/25/2024 Blood Sugar Diagnostic (ONE TOUCH ULTRA TEST) Strip 1 each by Other route 2 times daily (before meals). Dx code 250.02 uses insulin 100 each 07/19/2014 08/10/2018 Lancets Misc Inject 1 each subcutaneously 2 times daily (before meals). Dx code 250.02 uses insulin 100 each 07/19/2014 08/10/2018 documented as of this encounter Plan of Treatment Not on file documented as of this encounter Procedures Procedure Name Priority Date/Time Associated Diagnosis Comments US RETROPERITONEAL COMPLETE Routine 01/13/2017 2:43 PM EDT CKD (chronic kidney disease) stage 3, GFR 30-59 ml/min Proteinuria Type 2 diabetes mellitus with complication, with long-term current use of insulin documented in this encounter Results * US Retroperitoneal Complete (01/13/2017 2:43 PM EDT) Anatomical Region Laterality Modality Abdomen Ultrasound 01/13/2017 2:27 PM EDT Impressions 01/13/2017 3:00 PM EDT ??Ultrasound Dictation: 1. ??Bilateral kidneys are normal. No hydronephrosis. No focal renal mass seen. 2. ??The partially distended bladder is normal. I have personally reviewed the image(s) and the residents interpretation and agree with the findings, Goldie Yanez at 01/13/2017 2:53 PM ?Goldie Yanez MD Electronically Signed Final Report ?? 01/13/2017 02:59 pm Narrative 01/13/2017 3:00 PM EDT Renal ?(Signed Final 01/13/2017 02:59 pm) PATIENT INFO: ID #: ? [id number] ?: ??[birth year] (51 yrs) Name: ? GERSON BONILLA ? Visit Date: 01/13/2017 02:27 pm PERFORMED BY: Performed By: ? Natalie Head RDMS Attending: ?Renata CID, Goldie Good Associate: ?Aubrey CID, Marcio Barney Referred By: ?LURDES ESPINOSA MD Location: ? [facility] SERVICE(S) PROVIDED: ??URETRO - Retroperitoneal Complete - [id number] ? [id number] INDICATIONS: ??EFRA on CKD, DM, proteinuria COMPARISON: No prior studies for comparison. RIGHT KIDNEY: Size (cm) ?L: ??12.5 Cortical Thickness: ?Normal Cortical Echogenicity: ?? Normal Hydronephrosis: ?No sonographic evidence LEFT KIDNEY: Size (cm) ?L: ??11.5 Cortical Thickness: ?Normal Cortical Echogenicity: ?? Normal Hydronephrosis: ?No sonographic evidence URINARY BLADDER: Right Urinary Jet: Visualized Left Urinary Jet: ??Visualized Pre-void (cm) ? L: ??11.3 ?AP: ??5.3 ? TV: ??7.7 Vol (ml): ?241.5 Comment: ?Partially distended, normal contour. Procedure Note Goldie Yanez MD - 01/13/2017 Renal (Signed Final 01/13/2017 02:59 pm) PATIENT INFO: ID #: [id number] : [birth year] (51 yrs) Name: GERSON BONILLA Visit Date: 01/13/2017 02:27 pm PERFORMED BY: Performed By: Natalie Head RDMS Attending: Goldie Yanez MD Associate: Marcio Burgos MD Referred By: LURDES ESPINOSA MD Location: [facility] SERVICE(S) PROVIDED: URETRO - Retroperitoneal Complete - [id number] INDICATIONS: EFRA on CKD, DM, proteinuria COMPARISON: No prior studies for comparison. RIGHT KIDNEY: Size (cm) L: 12.5 Cortical Thickness: Normal Cortical Echogenicity: Normal Hydronephrosis: No sonographic evidence LEFT KIDNEY: Size (cm) L: 11.5 Cortical Thickness: Normal Cortical Echogenicity: Normal Hydronephrosis: No sonographic evidence URINARY BLADDER: Right Urinary Jet: Visualized Left Urinary Jet: Visualized Pre-void (cm) L: 11.3 AP: 5.3 TV: 7.7 Vol (ml): 241.5 Comment: Partially distended, normal contour. IMPRESSION Ultrasound Dictation: 1. Bilateral kidneys are normal. No hydronephrosis. No focal renal mass seen. 2. The partially distended bladder is normal. I have personally reviewed the image(s) and the residents interpretation and agree with the findings, Goldie Yanez at 01/13/2017 2:53 PM Goldie Yanez MD Electronically Signed Final Report 01/13/2017 02:59 pm Lurdes Espinosa MD IMG US GEN ORDERABL ES documented in this encounter Visit Diagnoses Diagnosis CKD (chronic kidney disease) stage 3, GFR 30-59 ml/min Chronic kidney disease, Stage III (moderate) Proteinuria Type 2 diabetes mellitus with complication, with long-term current use of insulin documented in this encounter Care Teams Entertainment Production Professional Relationship Specialty Start Date End Date Adeola Villegas APRN PCP - General Family Medicine 01/13/17 02/05/19 documented as of this encounter
--- OUTSIDE RECORDS SUMMARY | 2024-12-05 12:44 | XMS_ITS | Encounter Summary ---
Author Organization [facility] Address [facility] [place] [address] Care Team Providers Care Medical Clerk Name Role Phone Evangelist Carter MD Primary Care Provider [phone] Encounter Details Date Type Department Care Team (Latest Contact Info) Description 09/02/2016 3:00 PM EST Office Visit [place] [address] Lurdes Espinosa MD [facility] DR NEPHROLOGY [place] [id number] Sourav Jang DO CKD (chronic kidney disease) stage 3, GFR 30-59 ml/min; Proteinuria; Type 2 diabetes mellitus with complication, with long-term current use of insulin; Elevated blood pressure Social History Tobacco Use Types Packs/Day Years Used Date Smoking Tobacco: Every Day Cigarettes Smokeless Tobacco: Never Sex and Gender Information Value Date Recorded Sex Assigned at Not on file Gender Identity Not on file Sexual Orientation Not on file documented as of this encounter Last Filed Vital Signs Vital Sign Reading Time Taken Comments Blood Pressure 120/62 09/02/2016 11:57 AM EST Pulse 64 09/02/2016 11:57 AM EST Temperature - - Respiratory Rate - - Oxygen Saturation - - Inhaled Oxygen Concentration - - Weight 95.3 kg (210 lb) 09/02/2016 11:57 AM EST Height 176.5 cm (5' 9.5) 09/02/2016 11:57 AM ES T Body Mass Index 30.57 09/02/2016 11:57 AM EST documented in this encounter Progress Notes * Sourav Jang DO - 09/02/2016 3:00 PM EST [facility] Nephrology/Hypertension Follow Up Gerson Bonilla [id number] 1965 HPI: 50 y/o WM with a h/o CKD Stage 3 and DM who presents for follow-up in renal clinic for CKD. Patienthas a h/o CKD that has progressed over the past 2 years. CKD most likely to DM and Cr has increasedfrom a Cr of 1.7 (11/2013) --> 1.8 (06/2014) --> 2.1 (04/2015) --> 1.83 (05/2015) --> 2.5 (05/2016) --> 2.0 (06/2016). Pt has a h/o uncontrolled DM with HgbA1c that has ranged from 7.8 - 8.7% --> but has improved on most recent labs 06/2016 to 7.1%. Pt has also had borderline hyperkalemia over this same 2 year time frame. K improved on most recent labs showed K of 4.4. Pt denies any recent fever/ chills. Denies any CP, SOB, palpitations. Pt denies any recent change in urination frequency or stream. Pt denies dysuria, hematuria, or foamy urine. BP was controlled and at goal this AM PAST MEDICAL HX: Past Medical History Diagnosis Date ??? Diabetes mellitus ??? Herniation of lumbar intervertebral disc with radiculopathy 08/16/2015 L4-5 left ROS: -no fever, chills, night sweats -no headache, blurring of vision, diplopia -no dysphagia, hearing problems -no chest pain, palpitation, no QUINTANILLA, orthopnea -no cough or SOB -no abdominal pain, nausea, vomiting or diarrhea -no rash -no neuropathy -no LE swelling -no change in mood -no heat or cold intolerance Medications: Prior to Admission medications Medication Sig Start Date End Date Taking? Authorizing Provider pregabalin (LYRICA) 100 mg Capsule Take by mouth. 200 MG-AM, 100 MG-PM Yes PROVIDER, HISTORICAL metFORMIN (GLUCOPHAGE) 500 mg Tablet Take 500 mg by mouth daily. 07/26/15 Yes PROVIDER, HISTORICAL LANTUS SOLOSTAR Insulin Pen 10/21/15 Yes PROVIDER, HISTORICAL lisinopril (PRINIVIL;ZESTRIL) 10 mg Tablet Take 10 mg by mouth daily. Yes PROVIDER, HISTORICAL multivitamin (THERAGRAN) Tablet Take 1 tablet by mouth daily. Yes PROVIDER, HISTORICAL furosemide (LASIX) 40 mg Tablet Take 1 tablet by mouth daily. 06/13/15 Yes Salas Ross, DO Insulin [place], Disposable, 31 X 5/16 Needle Inject 1 each subcutaneously 2 times daily (before meals). 07/19/14 Yes Bilotta Blanca E, HOUSING INSTALLER Blood Sugar Diagnostic (ONE TOUCH ULTRA TEST) Strip 1 each by Other route 2 times daily (before meals). Dx code 250.02 uses insulin 07/19/14 Yes Bilotta Blanca E, HOUSING INSTALLER Lancets Misc Inject 1 each subcutaneously 2 times daily (before meals). Dx code 250.02 uses insulin07/19/14 Yes Bilotta, Blanca E, HOUSING INSTALLER Allergies / ADRs: Allergies Allergen Reactions ??? Clindamycin Swelling. ??? Gabapentin swelling ??? Penicillins CIS - Unknown PHYSICAL EXAM: Vitals: 09/02/16 1157 BP: 120/62 Pulse: 64 Gen - AAO x 3 in NAD Skin - No rash HEENT - Moist mucous membranes, PERRL, EOMI Chest: Lungs clear to auscultation, no wheezes/ rhonchi/ crackles. Heart - RRR, S1/S2 normal, no murmur, gallop, or rub. JVP not elevated. Abd - Soft. + BS. No bruit. Non tender. No organomegaly. Ext - Warm. No cyanosis. Trace LE edema. Labs/ Imaging: Urine Protein/ Creatinine Ratio: 1.1 CBC: WBC 5.95, Hgb 12.9, Plt 239, MCV 91 BMP: Na 143, K 4.4, Cl 106, Bicarb 32, BUN 41, Cr 2.04, Glucose 140, Ca 8.9 Impression/ Plan: CKD: -Stage 3 CKD --> most recent labs show Cr of 2.04 and eGFR of 35 -G3b A3 -Pt has h/o progressive renal disease and uncontrolled DM -Previous renal U/S was not completed --> Re-ordered and pt will get prior to next appointment at OSH/ Facility close to residence -Will get urine protein/ creatinine ratio to evaluate degree of proteinuria --> was 1.1 on most recent labs -Will need close follow-up --> pt does not significant degree of proteinuria and no h/o retinopathy/ neuropathy -Recommend follow-up with opthalmology --> for eye exam, pt has not had recent exam -Tighter glycemic control --> improved control and pts HgbA1c improved ---> currently at goal7.1% ?? DM: -Improved glycemic control --> HgbA1c improved 7.1% -recommended daily fasting glucose and improved compliance with insulin and medications -PCP to adjust insulin regimen as needed ?? Hyperkalemia: -K was 4.4 on most recent labs -Pt continued JUAN and hyperkalemia has since resolved -BP controlled -Continue lasix as well ?? HTN: -Controlled, continue current regimen -Daily BP monitoring ?? HLD: Continue simvastain ?? BMD: -PTH mildly elevated at 100 -Calcium at goal -Vitamin D and Phos --> WNL -repeat at next appointment, if remains elevated --> will start calcitriol ? Follow up: 3 months Seen and Discussed w/ Dr. Francisca Jang DO Nephrology Fellow [facility] Evangelist Carter MD [address] [place] [address] [place] [address] * Lurdes Espinosa MD - 09/02/2016 3:00 PM EST The patient was seen and examined with the nephrology fellow. Please see the nephrology fellow's note from today for details. I have reviewed the fellow's note including the exam, assessment and plan. My evaluation of the patient is as follows: Patient with DM/progressive renal failure. Had problems with hyperkalemia/JUAN now improved with attention to low K diet. Agree with assessment and plan as outlined. documented in this encounter Plan of Treatment Not on file documented as of this encounter Results * US Retroperitoneal Complete [...] findings, Goldie Yanez at 01/13/2017 2:53 PM ?oGldie Yanez MD Electronically Signed Final Report ?? 01/13/2017 02:59 pm Narrative 01/13/2017 3:00 PM EDT Renal ?(Signed Final 01/13/2017 02:59 pm) PATIENT INFO: ID #: ? [id number] ?: ??[birth year] (51 yrs) Name: ? GERSON BONILLA ? Visit Date: 01/13/2017 02:27 pm PERFORMED BY: Performed By: ? Natalie Head RDMS Attending: ?Renata CID, Goldie Good Associate: ?Aubrey CID, Marcio Barney Referred By: ?LURDES ESPINOSA MD Location: ? [place] SERVICE(S) PROVIDED: ??URETRO - Retroperitoneal Complete - [id number] ? [id number] INDICATIONS: ??EFRA on CKD, DM, proteinuria COMPARISON: [...] 01/13/2017 02:59 pm) PATIENT INFO: ID #: [id number] : [birth year] (51 yrs) Name: GERSON BONILLA Visit Date: 01/13/2017 02:27 pm PERFORMED BY: Performed By: Natalie Head RDMS Attending: Renata CID, Goldie Good Associate: Marcio Burgos MD Referred By: LURDES ESPINOSA MD Location: [place] SERVICE(S) PROVIDED: URETRO - Retroperitoneal Complete - [id number] INDICATIONS: EFRA on CKD, DM, proteinuria COMPARISON: [...] 01/13/2017 02:59 pm Lurdes Espinosa MD IMG GEN ORDERABL ES documented in this encounter Visit Diagnoses Diagnosis CKD (chronic kidney disease) stage 3, GFR 30-59 ml/min Chronic kidney disease, Stage III (moderate) Proteinuria Type 2 diabetes mellitus with complication, with long-term current use of insulin Elevated blood pressure Elevated blood pressure reading without diagnosis of hypertension CKD (chronic kidney disease) stage 3, GFR 30-59 ml/min Chronic kidney disease, Stage III (moderate) Proteinuria Type 2 diabetes mellitus with complication, with long-term current use of insulin documented in this encounter Care Teams Medical Clerk Relationship Specialty Start Date End Date Evangelist Carter MD PCP - General 04/30/15 01/12/17 documented as of this encounter
--- OUTSIDE RECORDS SUMMARY | 2024-12-05 12:44 | XMS_ITS ---
Author Organization [facility] [place] [address] Care Team Providers Care Alteration Specialist Name Role Phone Ismael Albarran Primary Care Provider + Transplant Episode Kidney Candidate [facility] ([place], [place]) - [facility] Evaluation began on 06/02/2018 Marked as Not a Candidate on 08/02/2019 Reason: Patient's Choice (due to smoking) Kidney CoordinatorSandra Pacheco RN Phone: N/A Fax: N/A Email: N/A Scores Score Value Updated Exceptions/Reas ons CPRA Not available EPTS (Calc) 83 2024 [place] Organ Diagnosis Organ Primary Contributory Kidney Diabetes Mellitus - Type II Care Team Name Role Phone Fax Email Sandra Pacheco RN Kidney Coordinator N/A N/A N/A An Lilly Cabinet Mounter N/A N/A N/A Priya King RD Registered Dietitian N/A N/A N/A Leelee Edge MD Referring Physician N/A N/A N/A TESS [place] Portable Feed Mill Operator N/A N/A N/A Kiel Paulson MD Transplant Physician N/A N/A N/A Kiel Jones MD Transplant Surgeon N/A N/A N/A Events Pre-Transplant Referred: 04/07/2018 Evaluation began: 06/02/2018 Committee: 06/09/2018 Dialysis History Dialysis History Start End Type Comments Center 02/14/2019 Hemo [facility] Information Center Phone Fax Address [facility] [phone] [place] [address] [place] [address]
--- OUTSIDE RECORDS SUMMARY | 2024-12-05 12:44 | XMS_ITS | Encounter Summary ---
Author Organization [facility] [place] [address] Care Team Providers Care Technician Semiconductor Development Name Role Phone Evangelist Carter MD Primary Care Provider [phone] Reason for Visit * Reason Comments Chronic Kidney Disease Encounter Details Date Type Department Care Team (Latest Contact Info) Description 06/13/2015 1:30 PM EDT Office Visit [place] [id number] Lino Poe MD Anemia of chronic renal failure, stage 3 (moderate) Discharge Disposition: Home Social History Tobacco Use Types Packs/Day Years Used Date Smoking Tobacco: Every Day Cigarettes Smokeless Tobacco: Never Sex and Gender Information Value Date Recorded Sex Assigned at Not on file Gender Identity Not on file Sexual Orientation Not on file documented as of this encounter Last Filed Vital Signs Vital Sign Reading Time Taken Comments Blood Pressure 144/72 06/13/2015 1:30 PM EDT Pulse 84 06/13/2015 1:30 PM EDT Temperature - - Respiratory Rate - - Oxygen Saturation - - Inhaled Oxygen Concentration - - Weight 93 kg (205 lb) 06/13/2015 1:30 PM EDT Height 175.3 cm (5' 9) 06/13/2015 1:30 PM EDT Body Mass Index 30.27 06/13/2015 1:30 PM EDT documented in this encounter Progress Notes * Lino Poe MD - 06/14/2015 10:05 AM EDT The relevant details regarding Wili Bonilla were reviewed with Dr. Ross. The assessment and plan were formulated in discussion with me and I agree with them as documented, with the following additions. I have seen and examined the patient, providing the olivares components as outlined below. I agree with Dr. Ross's exam findings. Plans as outlined. * Gianluca Ross, DO - 06/13/2015 6:15 PM EDT HYPERTENSION/ NEPHROLOGY CONSULT PATIENT: Wili Bonilla : 1965 REASON FOR CONSULTATION: Chronic kidney disease referred by Dr. Carter PMH: CKD 3b DM HPI: 49 y.o. male who presents to clinic for evaluation of chronic kidney disease. Patient with hx of renal disease for at least 2 yrs. DM Type 1? for past 28 yrs. Denies NSAIDS. No hx of HTN. On Lisinopril 10. No weight changes. Low salt diet. Denies nausea, shortness of breath, chest pain, dysuria/urgency/frequency urination, tremors. Creat 1.7 mg/dl (11/2013), 1.8 mg/dl (06/2014), 2.1 mg/dl (04/2015) . UA: 100 mg/dl prot, 500 mg/dl glu, 0-2 RBC, (-) bact. Potassium 6.1 mmol/l (5.3 previously). No prot/creat ratio on file. BP 150's in AM, BG postprandial not checked. Last Hga1c 8.7%. On Lantus. BP 110's systolic at home, checked daily. MEDICATIONS: Allergies: Allergies Allergen Reactions ??? Clindamycin Swelling. ??? Gabapentin swelling ??? Penicillins CIS - Unknown PSH: No past surgical history on file. FH: No family hx of kidney disease SH: 40 pack yr smoking hx, denies alcohol. +Marijuana use ROS: Constitutional - No fevers, chills, weight loss Skin - No rash or itchy skin HEENT - No headaches, visual changes Resp - No cough, shortness of breath CV - No chest pain, leg swelling, difficulty breathing lying flat GI - No nausea, vomiting,change in bowel habits/abdominal pain - No change in urine output. No pain urinating or blood in urine. Neuro - Numbness/ tingling in extremities. No weakness. PHYSICAL EXAM: Vitals 06/13/2015 SYSTOLIC 144 DIASTOLIC 72 PULSE 84 Height (Prydeinig) 5' 9 Height (Metric) 175.3 cm Weight (Prydeinig) 205 lbs Weight (Metric) 92.987 kg BODY MASS INDEX 30.26 kg/m2 Appearance - Alert, Comfortable. Skin - No exanthem. HEENT - Sclerae white. Mucous membranes moist. Chest: Rhales. No wheezes/ rhonchi. Heart - S1 and S2 clear w/o murmur, gallop, or rub. JVP not elevated. Abd - Soft. + BS. No bruit. Non tender. Ext - 2+ pitting edema bilat. Warm. No cyanosis. Neuro - No asterixis. STUDIES: Results for WILI BONILLA ( ) as of 06/14/2015 09:15 Ref. Range 06/13/2015 14:46 06/13/2015 17:22 Sodium Latest Range: 135-145 mmol/L 140 Potassium Latest Range: 3.5-5.0 mmol/L 4.8 Chloride Latest Range: 98-107 mmol/L 105 CO2 Latest Range: 22-31 mmol/L 24 Anion Gap Latest Range: 5-15 mmol/L 11 BUN Latest Range: 10-20 mg/dL 29 (H) Creatinine Latest Range: 0.80-1.50 mg/dL 1.83 (H) Estimated GFR Latest Range: >=60 40 (L) Glucose Lvl Latest Range: 65-199 mg/dL 147 Calcium Latest Range: 8.5-10.5 mg/dL 9.2 U Creatinine No range found 61 U Ran Malb Calc No range found 947 U Ran Malb Conc No range found 577.9 UA today: S.010 PH 5 Leuk (-) Nit (-) Prot 2+ Gluc (-) Uro (-) Bili (-) Blood TR UA microscopy: few hyaline casts, benign sediment IMPRESSION/ RECOMMENDATIONS: Mr. Bonilla is a 49 yr old gentleman w/ hx of CKD 3b who presents to nephrology clinic for establishing care. CKD 3b,A3-Secondary to DM (Type 1 likely). Creat 1.7 mg/dl (11/2013), 1.8 mg/dl (06/2014), 2.1mg/dl (04/2015) . Repeat chem panel today revealed creat 1.83 mg/dl, with estimated GFr 40 ml/min, and K+4.8(improved from 6.1). No renal ultrasound. CKD diagnosed roughly 2 yrs ago. Lisinopril 10. HgA1c 8.7%on Lantus. Eye exam yearly. BP 144/71 but 110's at home on Lisinopril. UA today: 2+ prot, trace bloo d. No prot/creat on file. Hypertension-BP 144/72. BP typically 110's at home. On Lisinopril. DM-HgA1c 8.7. Lantus. BG not checked regularly. Goal Hga1c x<7. F/u endocrine, encourage strict glycemic control. Plan: -Check urine prot/creat ratio, renal ultrasound, basic met panel -Restart furosemide 40mg PO QDAY -Continue Lisinopril 10mg PO QDAY. Goal <140/90, possibly in low <130s systolic -Low salt diet x<2g/day, low potassium diet -Avoid nephrotoxic agents -BP control, DM control, yearly eye exams, foot exams Return in 4 months. Thanks for letting us participate in the care of this patient. Seen and Discussed w/ Dr. Maria T Ross, Nephrology Fellow Pager [phone] documented in this encounter Miscellaneous Notes * Addendum Note - Lino Poe MD - 06/14/2015 10:07 AM EDTAddended by: LINO POE on: 06/14/2015 10:07 AM Modules accepted: Level of Service documented in this encounter Plan of Treatment Not on file documented as of this encounter Procedures Procedure Name Priority Date/Time Associated Diagnosis Comments U ALBUMIN/CRE RATIO Routine 06/13/2015 5 :22 PM EDT Anemia of chronic renal failure, stage 3 (moderate) BASIC METABOLIC PANEL Routine 06/13/2015 2:46 PM EDT Anemia of chronic renal failure, stage 3 (moderate) documented in this encounter Results * Microalbumin, urine, random (06/13/2015 5:22 PM EDT) Creatinine, Urine 61 mg/dL CE RNER MILLENNIUM Albumin, Urine 577.9 mg/L CERNE R MILLENNIUM Albumin / Creatinin Ratio, Urine 947 mcg/mg Cr CERNER MILLENNIUM Comment: Reference Range* Random collection (mcg/mg creatinine) Normal ?<30 Microalbuminuria ?? 30 - 300 Clinical Albuminuria ?? >300 *[place] Diabetes Association. Diabetic Nephropathy. Diabetes Care 1997;(Suppl 1):S24-S27 Exercise within 24 hour, infection, fever, CHF, marked hyperglycemia, and marked hypertension may elevate urinary albumin excretion over baseline values. Urine specimen (specimen) 06/13/2015 5:22 PM EDT 06/13/2015 5:22 PM EDT Narrative Resulting Agency Comment Spec In Lab Lino Poe MD URINE ORDERABLES [facility] MILLENNIUM * (ABNORMAL) Basic Metabolic Panel (non-fasting) (06/13/2015 2:46 PM EDT) Glucose 147 65 - 199 mg/dL CERNER MILLENNIUM Comment:Diabetes: >=200 mg/d L plus symptoms Blood Urea Nitrogen 29(H) 10 - 20 mg/dL CERNER MILLENNIUM Creatinine 1.83(H) 0.80 - 1.50 mg/dL CERNER MILLENNIUM Comment: Please note that the pediatric reference intervals supplied above were not validated [place] [facility] [place] Results from pediatric patients should be interpreted in conjunction to the patient's age, height and muscle mass. Sodium 140 135 - 145 mmol/L CERNER MILLENNIUM Potassium 4.8 3.5 - 5.0 mmol/L [facility]ERN[facility] MILLENNIUM Comment: Please note: ??Patients with WBC >100,000 may have falsely elevated Potassium levels. ??For accurate Potassium quantification in these patients send serum separator tube (gold top) for subsequent determinations. ??Contact the Clinical Chemistry Laboratory if there are any questions. Chloride 105 98 - 107 mmol/L CERNER MILLENNIUM Carbon Dioxide 24 22 - 31 mmol/L CERNER MILLENNIUM Anion Gap 11 5 - 15 mmol/L CERNER MILLENNIUM Calcium 9.2 8.5 - 10.5 mg/dL CERNER MILLENNIUM Est Glomerular Filtration Rate 40(L) >=60 CERNER MILLENNIUM Comment: This estimated GFR (eGFR) value was calculated using the MDRD equation which has been validated on patients between the ages of 18 and 70. The MDRD should not be used to assess kidney function in patients < 18 years of age or in patients with extremes of body mass, or in patients with acute kidney failure. This value should be multiplied by 1.2 for patients. For further information please copy and paste the following links into your internet browser. [email or web address] [email or web address] Blood specimen (specimen) 06/13/2015 2:46 PM EDT 06/13/2015 2:52 PM EDT Narrative Resulting Agency Comment Spec In Lab Lino Poe MD CHEMISTRY ORDERAB LES VALENTINA BERGMAN documented in this encounter Visit Diagnoses Diagnosis Anemia of chronic renal failure, stage 3 (moderate) documented in this encounter Care Teams Technician Semiconductor Development Relationship Specialty Start Date End Date Evangelist Carter MD PCP - General 04/30/15 01/12/17 documented as of this encounter
--- OUTSIDE RECORDS SUMMARY | 2024-12-05 12:44 | XMS_ITS | Encounter Summary ---
[place] [address] Care Team Providers Care Bicycle Assembler Name Role Phone Evangelist Carter MD Primary Care Provider [phone] Encounter Details Date Type Department Care Team (Late st Contact Info) Description 12/08/2016 Orders Only [place] [address] Sourav Jang DO CKD (chronic kidney disease) stage 3, GFR 30-59 ml/min; Other specified diabetes mellitus; Elevated blood pressure reading without diagnosis of hypertension Social History Tobacco Use Types Packs/Day [...] Stage III (moderate) Other specified diabetes mellitus Elevated blood pressure reading without diagnosis of hypertension documented in this encounter Care Teams Bicycle Assembler Relationship Specialty Start Date End Date Evangelist Carter MD PCP - General 04/30/15 01/12/17 documented as of this encounter
--- OUTSIDE RECORDS SUMMARY | 2024-12-05 12:44 | XMS_ITS | Encounter Summary ---
[place] [address] Care Team Providers Care Transaction Coordinator Name Role Phone Adeola Villegas APRN Primary Care Provider Encounter Details Date Type Department Care Team (Latest Contact Info) Description 01/13/2017 1:00 PM EDT Laboratory Appointment [place] [address] [place] [id number] CKD (chronic kidney disease) stage 3, GFR 30-59 ml/min; Essential hypertension; Type 2 diabetes mellitus with complication, unspecified termite treater helper insulin use status; Hyperparathyroidism Social History Tobacco Use Types Packs/Day Years [...] Priority Date/Time Associated Diagnosis Comments PTH Routine 01/13/2017 12:21 PM EDT CKD (chronic kidney disease) stage 3, GFR 30-59 ml/min Essential hypertension Type 2 diabetes mellitus with complication, unspecified termite treater helper insulin use status Hyperparathyroidism HEMOGRAM Routine 01/13/2017 12:21 PM EDT CKD (chronic kidney disease) stage 3, GFR 30-59 ml/min Essential hypertension Type 2 diabetes mellitus with complication, unspecified skilled nursing insulin use status Hyperparathyroidism DIFFERENTIAL, AUTOMATED Routine 01/13/2017 12:21 PM EDT CKD (chronic kidney disease) stage 3, GFR 30-59 ml/min Essential hypertension Type 2 diabetes mellitus with complication, unspecified termite treater helper insulin use status Hyperparathyroidism VITAMIN D, 25-HYDROXY Routine 01/13/2017 12:21 PM EDT CKD (chronic kidney disease) stage 3, GFR 30-59 ml/min Essential hypertension Type 2 diabetes mellitus with complication, unspecified termite treater helper insulin use status Hyperparathyroidism CBC (WITH DIFF) Routine 01/13/2017 12:21 PM EDT CKD (chronic kidney disease) stage 3, GFR 30-59 ml/min Essential hypertension Type 2 diabetes mellitus with complication, unspecified termite treater helper insulin use status Hyperparathyroidism PHOSPHORUS Routine 01/13/2017 12:21 PM EDT CKD (chronic kidney disease) stage 3, GFR 30-59 ml/min Essential hypertension Type 2 diabetes mellitus with complication, unspecified termite treater helper insulin use status Hyperparathyroidism MAGNESIUM Routine 01/13/2017 12:21 PM EDT CKD (chronic kidney disease) stage 3, GFR 30-59 ml/min Essential hypertension Type 2 diabetes mellitus with complication, unspecified termite treater helper insulin use status Hyperparathyroidism HEMOGLOBIN A1C Routine 01/13/2017 12:21 PM EDT CKD (chronic kidney disease) stage 3, GFR 30-59 ml/min Essential hypertension Type 2 diabetes mellitus with complication, unspecified skilled nursing insulin use status Hyperparathyroidism COMPREHENSIVE METABOLIC PANEL Routine 01/13/2017 12:21 PM EDT CKD (chronic kidney disease) stage 3, GFR 30-59 ml/min Essential hypertension Type 2 diabetes mellitus with complication, unspecified skilled nursing insulin use status Hyperparathyroidism documented in this encounter Results * Differential, Automated (01/13/2017 12:21 PM EDT) Neutrophil % 53.6 % [facility] Neutrophil Absolute 3.51 1.70 - 6.10 x10(3)/[facility] Lymph % 33.1 % [facility] Lymphocytes Abs 2.2 0.9 - 3.2 x10(3)/[facility] Monocyte % 9.5 % [facility] Monocyte Abs 0.6 0.3 - 0.9 x10(3)/[facility] Eos % 2.7 % [facility] Eosinophils Abs 0.2 0.0 - 0.4 x10(3)/[facility] Basophil % 0.8 % [facility] Baso Absolute 0.0 0.0 - 0.1 x10(3)/[facility] Immature Gran % 0.30 % [facility] Comment: Immature granulocytes(IG's)percentage and absolute count will include metamyelocytes, myelocytes, and promyelocytes. Blood smears from CBCs yielding IG's will be scanned manually for concordance. If this scan disagrees with the automated IG or if promyelocytes are noted, a manual differential will be performed. Immature Gran Absolute 0.02 0.00 - 0.04 x10(3)/[facility] Blood specimen (specimen) 01/13/2017 12:21 PM EDT 01/13/2017 12:28 PM EDT Narrative Resulting Agency Comment Spec In Lab Felton Lugo MD HEMATOLOGY ORDERABLE S [facility] [place] [address] * (ABNORMAL) Hemogram (01/13/2017 12:21 PM EDT) White Blood Cell 6.6 4.0 - 9.5 x10(3)/mc L [facility] Red Blood Cell 3.96(L) 4.58 - 5.54 x10(6)/mc L [facility] Hemoglobin 12.1(L) 13.7 - 16.5 gm/dL [facility] Hematocrit 36.2(L) 40.5 - 48.5 % [facility] Mean Cell Volume 91.4 82.9 - 93.1 fL [facility] Mean Cell Hemoglobin 30.6 27.5 - 32.1 pg [facility] Mean Cell Hemoglobin Concentration 33.4 32.0 - 35.7 gm/dL [facility] Platelet 253 145 - 357 x10(3)/mc L [facility] RDW Standard Deviation 43.2 36.0 - 45.0 fL [facility] RDW coefficient of variation 12.8 11.4 - 13.8 % [facility] Mean Platelet Volume 11.2 7.6 - 12.9 fL [facility] NRBC% auto 0.0 % [facility] NRBC Absolute 0.000 0.000 - 0.000 x10(3)/mc L [facility] Blood specimen (specimen) 01/13/2017 12:21 PM EDT 01/13/2017 12:28 PM EDT Narrative Resulting Agency Comment Spec In Lab Felton Lugo MD HEMATOLOGY ORDERABLE S [facility] [place] [place] [address] * (ABNORMAL) Vitamin D, 25-Hydroxy (01/13/2017 12:21 PM EDT) Vitamin D Total 25 OH 20(L) 30 - 100 ng/mL [facility] Comment: Deficient <10 ng/mL Insufficient 10 to 29 ng/mL Sufficient 30 to 100 ng/mL Potential Intoxication >100 ng/mL According to the [place] National Osteoporosis Foundation, Vitamin D concentrations >30 ng/mL are sufficient to protect bone health. ??The National Kidney Foundation has similarly stated that patients with Vitamin D concentrations <30ng/mL should be considered to be insufficient or deficient. http://Speed Commerce.Mulu/DHMCnatlkidneyfoundation http://Speed [employer].Mulu/DHMCVitD The IDS iSYS Vitamin D Immunoassay detects both 25-OH Vitamin D2 and 25-OH Vitamin D3, but only a total Vitamin D concentration is reported. Blood specimen (specimen) 01/13/2017 12:21 PM EDT 01/13/2017 1:47 PM EDT Narrative Resulting Agency Comment Spec In Lab Felton Lugo MD CHEMISTRY ORDERABLES [facility] [place] [address] * (ABNORMAL) Hemoglobin A1c (01/13/2017 12:21 PM EDT) Hemoglobin A1c 8.2(H) 4.3 - 5.6 % [facility] Comment: Reference Range: 4.3 - [...] Mellitus, Diabetes Care 2013; 36: Suppl. 1, S67-45 Estimated Average Glucose 189 mg/dL [facility] Comment: eAG equivalents for HbA1c percentages: HbA1c(%) ?eAG(mg/dL) 6.0 ?126 6.5 ?140 7.0 ?154 7.5 ?169 8.0 ?183 8.5 ?197 9.0 ?212 9.5 ?226 10.0 ? 240 Limitations: The eAG calculation has not been validated on women, individuals below 18 years old and above 70 years old, and individuals with hemoglobinopathies. Additional resources are available on the ADA website: http://Speed Commerce.com/DHMCadacalc [place] CURTIS, Jagruti J, Coy R, et al. ??Translating the A1C assay into estimated average glucose values. ??Diabetes Care 2008:31(8):0229-5771. Blood specimen (specimen) 01/13/2017 12:21 PM EDT 01/13/2017 12:28 PM EDT Narrative Resulting Agency Comment Spec In Lab Felton Lugo MD CHEMISTRY ORDERABLES Performing Organization Address City/[facility] Co de Phone Number [facility] [place] [address] * Magnesium (01/13/2017 12:21 PM EDT) Magnesium 0.99 0.69 - 1.07 mmol/L [facility] Blood specimen (specimen) 01/13/2017 12:21 PM EDT 01/13/2017 12:28 PM EDT Narrative Resulting Agency Comment Spec In Lab Felton Lugo MD CHEMISTRY ORDERABLES Performing Organization Address [facility] Co de Phone Number [facility] [place] [address] * Phosphorus (01/13/2017 12:21 PM EDT) Phosphorus 4.2 2.5 - 4.5 mg/dL [facility] Blood specimen (specimen) 01/13/2017 12:21 PM EDT 01/13/2017 12:28 PM EDT Narrative Resulting Agency Comment Spec In Lab Felton Lugo MD CHEMISTRY ORDERABLES Performing Organization Address [facility] Co de Phone Number [facility] [place] [address] * (ABNORMAL) PTH (01/13/2017 12:21 PM EDT) Parathyroid Hormone 103(H) 15 - 65 pg/mL [facility] Blood specimen (specimen) 01/13/2017 12:21 PM EDT 01/13/2017 12:28 PM EDT Narrative Resulting Agency Comment Spec In Lab Felton Lugo MD CHEMISTRY ORDERABLES [facility] [place] [address] * (ABNORMAL) Comprehensive metabolic panel (non-fasting) (01/13/2017 12:21 PM EDT) Glucose 125 65 - 199 mg/dL [facility] Comment:Diabetes: >=200 mg/d L plus symptoms Blood Urea Nitrogen 53(H) 10 - 20 mg/dL [facility] Creatinine 2.43(H) 0.80 - 1.50 mg/dL [facility] Comment: Please note that the pediatric reference intervals supplied above were not validated at [facility] [place]. Results from pediatric patients should be interpreted in conjunction to the patient's age, height and muscle mass. Sodium 144 135 - 145 mmol/L [facility] Potassium 5.9(H) 3.5 - 5.0 mmol/L [facility] Comment: Please note: ??Patients with WBC >100,000 may have falsely elevated Potassium levels. ??For accurate Potassium quantification in these patients send serum separator tube (gold top) for subsequent determinations. ??Contact the Clinical Chemistry Laboratory if there are any questions. Chloride 109(H) 98 - 107 mmol/L [facility] Carbon Dioxide 25 22 - 31 mmol/L [facility] Anion Gap 10 5 - 15 mmol/L [facility] Calcium 9.2 8.5 - 10.5 mg/dL [facility] Protein, Total 6.7 6.1 - 8.0 gm/dL [facility] Albumin 3.7 3.2 - 5.2 gm/dL [facility] Aspartate Aminotransferase 16 0 - 39 unit/L [facility] Alanine Aminotransferase 18 0 - 55 unit/L [facility] Alkaline Phosphatase 96 40 - 120 unit/L [facility] Bilirubin, Total 0.2 0.2 - 1.3 mg/dL [facility] Bilirubin, Direct <0.1 0.0 - 0.3 mg/dL [facility] Est Glomerular Filtration Rate 28(L) >=60 [facility] Comment: This estimated GFR (eGFR) value was [...] the following links into your internet browser. [email or web address] [email or web address] Blood specimen (specimen) 01/13/2017 12:21 PM EDT 01/13/2017 12:28 PM EDT Narrative Resulting Agency Comment Spec In Lab Felton Lugo MD CHEMISTRY ORDERABLES Performing Organization Address City/State/[facility] Co de Phone Number [facility] [place] [phone] documented in this encounter Visit Diagnoses Diagnosis CKD (chronic kidney disease) stage 3, GFR 30-59 ml/min Chronic kidney disease, Stage III (moderate) Essential hypertension Unspecified essential hypertension Type 2 diabetes mellitus with complication, unspecified skilled nursing insulin use status Hyperparathyroidism Hyperparathyroidism, unspecified documented in this encounter Care Teams Transaction Coordinator Relationship Specialty Start Date End Date Adeola Villegas APRN PCP - General Family Medicine 01/13/17 02/05/19 documented as of this encounter
--- OUTSIDE RECORDS SUMMARY | 2024-12-05 12:44 | XMS_ITS | Encounter Summary ---
Author Organization [facility] Address [facility] [place] [address] Care Team Providers Care Oil Burner Mechanic Name Role Phone Lauri Barbosa ADIEL Primary Care Provider Encounter Details Date Type Department Care Team (Late st Contact Info) Description 11/07/2015 Interpretation Only Radiology [address] [place] [address] Unknown None Social History Tobacco Use Types Packs/Day Years [...] NO RAD <1HR - RADIOLOGY USE Routine 11/07/2015 7:31 AM EST documented in this encounter Results * XR Fluoro <1Hr - Radiology Use (11/07/2015 7:31 AM EST) Anatomical Region Laterality Modality N/A Radiographic Traci ging 11/07/2015 7:31 AM EST Narrative 11/07/2015 7:31 AM EST APD Historical Result Principal Economic Research Analyst: ??BENITA ??RICK INTRAOPERATIVE FLUOROSCOPY: A total of 3.3 seconds (2.85 mGy) of intraoperative fluoroscopy was used by Dr Workman. ?? There was no Radiologist present during the exam. Two spot images document the procedure. ??Spot images document radiopaque instruments indicating the L5/S1 and L4-5 levels. Benita T. Hansberry, MD [facility]/mn [id number] Procedure Note Unknown - 04/24/2019 APD Historical Result Principal Economic Research Analyst: BENITA CABRERA INTRAOPERATIVE FLUOROSCOPY: A total of 3.3 seconds (2.85 mGy) of intraoperative fluoroscopy was usedby Dr Workman. There was no Radiologist present during the exam. Two spot images documentthe procedure. Spot images document radiopaque instruments indicating the L5/S1 and L4-5 levels. Benita Cabrera MD [facility]/sd [id number] Unknown IMG FLUORO ORDERABLE S documented in this encounter Visit Diagnoses Not on filedocumented in this encounter Care Teams Oil Burner Mechanic Relationship Specialty Start Date End Date Lauri Barbosa DNP [address] [place] [address] PCP - General Family Medicine 02/06/19 08/09/22 documented as of this encounter
--- OUTSIDE RECORDS SUMMARY | 2024-12-05 12:44 | XMS_ITS | Encounter Summary ---
Author Organization [facility] Address [facility] [address] Care Team Providers Care Kiln Placer Name Role Phone Evangelist Carter MD Primary Care Provider [phone] Encounter Details Date Type Department Care Team (Late st Contact Info) Description 06/11/2016 Telephone Nephrology [place] [phone] Sourav Jang DO Social History Tobacco Use Types Packs/Day Years Used Date Smoking Tobacco: Every Day Cigarettes Smokeless Tobacco: Never Sex and Gender Information Value Date Recorded Sex Assigned at Not on file Gender Identity Not on file Sexual Orientation Not on file documented as of this encounter Miscellaneous Notes * Telephone Encounter - Sourav Jang DO - 06/11/2016 1:45 PM EDT I called Mr Bruner on 06/04/2016 in order to discuss his lab values. His VM was not set up for me to leave a message, but I did call hiswife/ significant other. I had confirmed previously while pt was in clinic that this was another way to reach him if not able to reach him on phone [phone]. I discussed with her that pt was supposed to continue to hold his JUAN-I and will have him get repeat labs in the next few weeks and RTC for close follow-up. I asked that the patient call back to the [facility] number and have me paged. I tried to reach the pt several times but his VM continues to not be set up to leave a message. Pt called the nephrology office and spoke with Akua regarding being anxious to talk to me. I again tried to call him on the number listed --> [phone]. Again was not able to leave a message. I will try and call again this afternoon. documented in this encounter Plan of Treatment Not on file documented as of this encounter Visit Diagnoses Not on filedocumented in this encounter Care Teams Kiln Placer Relationship Specialty Start Date End Date Evangelist Carter MD PCP - General 04/30/15 01/12/17 documented as of this encounter
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
--- OUTSIDE RECORDS SUMMARY | 2024-12-05 12:44 | XMS_ITS | Encounter Summary ---
Author Organization [facility] Address [facility] [place] [address] Care Team Providers Care Patternmaker Apprentice Wood Name Role Phone Evangelist Carter MD Primary Care Provider [phone] Encounter Details Date Type Department Care Team (Late st Contact Info) Description 08/01/2015 - 08/01/2015 11:59 PM EDT Hospital Encounter Radiology Library at [facility] [place] [id number] Garrison Robles MD Pain Social History Tobacco Use Types Packs/Day Years Used Date Smoking Tobacco: Every Day Cigarettes Smokeless Tobacco: Never Sex and Gender Information Value Date Recorded Sex Assigned at Not on file Gender Identity Not on file Sexual Orientation Not on file documented as of this encounter Medications at Time of Discharge Medication Sig Dispensed Refills Start Date End Date oxyCODONE-acetaminop hen (PERCOCET) 5-325 mg Tablet 0 07/24/2015 06/03/2016 LYRICA 50 mg Capsule 0 07/26/2015 016 metFORMIN (GLUCOPHAGE) 500 mg Tablet Take 500 mg by mouth 2 times daily (with meals). 0 07/26/2015 06/02/2018 simvastatin (ZOCOR) 20 mg Tablet Take 20 mg by mouth nightly. 0 06/24/2015 09/02/2016 aspirin 81 mg Tablet, Delayed Release (E.C.) Take 81 mg by mouth daily. 06/03/2016 lisinopril (PRINIVIL;ZESTRIL) 10 mg Tablet Take 10 mg by mouth daily. 07/04/2018 multivitamin (THERAGRAN) Tablet Take 1 tablet by mouth daily. 02/25/2024 furosemide (LASIX) 40 mg Tablet Take 1 tablet by mouth daily. 30 tablet 12 06/13/2015 10/24/2018 Insulin [place], Disposable, 31 X 5/16 Needle Inject 1 [...] Associated Diagnosis Comments FILM LIBRARY STORAGE ONLY MR SPINE Routine 08/01/2015 12:00 AM EDT Pain documented in this encounter Results * Film Library- Storage only MR Spine (08/01/2015 12:00 AM EDT) Narrative [facility] - 08/05/2015 9:26 PM EDT See PACS for result report. Garrison Robles MD IMG FILM LIBRARY ORD ERABLES Performing Organization Address City/State/[facility] Co de Phone Number [place], [place] documented in this encounter Visit Diagnoses Diagnosis Pain Generalized pain documented in this encounter Care Teams Patternmaker Apprentice Wood Relationship Specialty Start Date End Date Evangelist Carter MD PCP - General 04/30/15 01/12/17 documented as of this encounter
--- OUTSIDE RECORDS SUMMARY | 2024-12-05 12:44 | XMS_ITS | Encounter Summary ---
Author Organization [facility] Address [facility] [place] [address] Care Team Providers Care Control Cabinet Assembler Name Role Phone BakariAdeola Laura DUNN Primary Care Provider Reason for Visit * Reason Comments Chronic Kidney Disease Encounter Details Date Type Department Care Team (Latest Contact Info) Description 01/13/2017 3:30 PM EDT Office Visit [place]ph[place] [address] Felton Lugo MD [facility] [place] [address] Sourav Jang DO CKD (chronic kidney disease) stage 4, GFR 15-29 ml/min; Hyperkalemia; Essential hypertension; Type 2 diabetes mellitus with complication, without long-term current use of insulin; Hyperlipidemia, unspecified hyperlipidemia type Social History Tobacco Use Types Packs/Day Years Used Date Smoking Tobacco: Every Day Cigarettes Smokeless Tobacco: Never Sex and Gender Information Value Date Recorded Sex Assigned at Not on file Gender Identity Not on file Sexual Orientation Not on file documented as of this encounter Last Filed Vital Signs Vital Sign Reading Time Taken Comments Blood Pressure 138/66 01/13/2017 2:57 PM EDT Pulse 84 01/13/2017 2:57 PM EDT Temperature - - Respiratory Rate - - Oxygen Saturation - - Inhaled Oxygen Concentration - - Weight 94.8 kg (209 lb) 01/13/2017 2:57 PM EDT Height 176.5 cm (5' 9.5) 01/13/2017 2:57 PM EDT Body Mass Index 30.42 01/13/2017 2:57 PM EDT documented in this encounter Progress Notes * Sourav Jang, DO - 01/13/2017 3:30 PM EDT [facility] Nephrology/Hypertension Follow Up Gerson Bruner [id number] 1965 ID: [id number] y.o. male with a h/o CKD Stage 3 and DM who presents for follow-up in renal clinic for CKD. Patient has a h/o CKD that has progressed over the past 2 years. CKD most likely to DM and Cr has increased from a Cr of 1.7 (11/2013) --> 1.8 (06/2014) --> 2.1 (04/2015) --> 1.83 (05/2015) --> 2.5 (05/2016) --> 2.0 (06/2016) --> 2.57 (05/2017) --> 2.43mg/dL this AM in clinic. Pt has ah/o uncontrolled DM with HgbA1c that has ranged from 7.8 - 8.7% (with most recent HgbA1c 8.2% this AM). Pt has also had borderline hyperkalemia over this same 2 year time frame --> however serum Kwas elevated at 5.9 this AM in clinic. Patient does describe trying to eat healthier and has been eating much more fruits. Pt denies any recent fever/ chills. Denies any CP, SOB, palpitations. Pt denies any recent change in urination frequency or stream. Pt denies dysuria, hematuria, or foamy urine. BP was controlled and at goal this AM ?? PAST MEDICAL HX: Past Medical History: Diagnosis Date ??? Diabetes mellitus ??? Herniation of lumbar intervertebral disc with radiculopathy 08/16/2015 L4-5 left HTN Hyperkalemia CKD Stage 4 Hyperparathyroidism HLD ROS: -no fever, chills, night sweats -no [...] mouth 2 times daily. Yes PROVIDER, HISTORICAL metFORMIN (GLUCOPHAGE) 500 mg [...] daily. 06/13/15 Yes Salas Ross, DO Insulin Points, Disposable, 31 X 5/16 Needle Inject 1 [...] meals). Dx code 250.02 uses insulin07/19/14 Yes Bilkalpesh Blanca E, RN MANAGED CARE Allergies / ADRs: Allergies Allergen Reactions ??? Clindamycin Swelling. ??? Gabapentin swelling ??? Penicillins CIS - Unknown PHYSICAL EXAM: Vitals: 01/13/17 1457 BP: 138/66 Pulse: 84 Gen - AAO x 3 in NAD Skin - No rash HEENT - Moist mucous membranes Chest: Lungs clear to auscultation, no wheezes/ rhonchi/ crackles. Heart - S1/S2 normal, no murmur, gallop, or rub. JVP not elevated. Abd - Soft. + BS. No bruit. Non tender. No organomegaly. Ext - Warm. No cyanosis. Trace LE/ dependent edema. Labs/ Imaging: Lab Results Component Value Date WBC 6.6 01/13/2017 HGB 12.1 (L) 01/13/2017 HCT 36.2 (L) 01/13/2017 MCV 91.4 01/13/2017 PLATELET 253 01/13/2017 Lab Results Component Value Date NA 144 01/13/2017 K 5.9 (H) 01/13/2017 CL 109 (H) 01/13/2017 CO2 25 01/13/2017 BUN 53 (H) 01/13/2017 CREATININE 2.43 (H) 01/13/2017 GLUCOSE 125 01/13/2017 CALCIUM 9.2 01/13/2017 Lab Results Component Value Date ALT 18 01/13/2017 AST 16 01/13/2017 ALKPHOS 96 01/13/2017 BILITOT 0.2 01/13/2017 BILIDIR <0.1 01/13/2017 ALBUMIN 3.7 01/13/2017 PROT 6.7 01/13/2017 Lab Results Component Value Date PTH 103 (H) 01/13/2017 CALCIUM 9.2 01/13/2017 PHOS 4.2 01/13/2017 Lab Results Component Value Date CALCIUM 9.2 01/13/2017 PHOS 4.2 01/13/2017 Renal U/S: 1. Bilateral kidneys are normal. No hydronephrosis. No focal renal mass seen. 2. The partially distended bladder is normal. Assessment and Plan: CKD: -Stage 4 CKD --> most recent labs show Cr of 2.43 and eGFR of 28 -Pt has h/o progressive renal disease and uncontrolled DM -Renal U/S showed no obstruction or hydronephrosis -Previous UPC was 1.1 on most recent labs -Recommend follow-up with opthalmology --> for eye exam, pt has not had recent exam -Tighter glycemic control --> target tighter glycemic control as most recent HgbA1c was 8.2% -will get SPEP and UPEP to evaluate (since serum Cr has increased and h/o proteinuria though less likely the etiology of CKD) ? DM: -most recent HgbA1c was 8.2% -recommended daily fasting glucose and improved compliance with insulin and medications -PCP to adjust insulin regimen as needed ? Hyperkalemia: -K was 5.9 on most recent labs this AM -Patient describes that he has been trying to eat more fruits and vegetables --> and had been eating a large amount of citrus fruits and melons -most likely secondary to increased intake -patient instructed to take extra dose of lasix and was given information regarding K content and dietary restrictions -will recheck labs in several days --> repeat labs showed that K was 5.4 ? HTN: -Controlled, continue current regimen -Daily BP monitoring ? HLD: Continue simvastain ? BMD: -PTH mildly elevated at 103 -Calcium at goal -Vitamin D and Phos --> WNL Follow up: RTC in 3 months Seen and Discussed w/ Dr. Parish Oleary. DO Suhail Nephrology Fellow [facility] Adeola Villegas APRN [address] [facility], [address] [address] * Felton Lugo MD - 01/13/2017 3:30 PM EDT Renal Staff Addendum Patient seen and examined with Dr. Jang. I agree with the above note which represents our joint assessment and plan with the following additions: Stage 4 CKD with poorly controlled diabetes. Would aim for target A1c < 7.5 as tolerated. He hasmodest hyperkalemia but has been following a fairly high K diet. We have counseled him on a low K diet and will continue lisinopril for now with close monitoring of K. documented in this encounter Plan of Treatment Not on file documented as of this encounter Visit Diagnoses Diagnosis CKD (chronic kidney disease) stage 4, GFR 15-29 ml/min Chronic kidney disease, Stage IV (severe) Hyperkalemia Hyperpotassemia Essential hypertension Unspecified essential hypertension Type 2 diabetes mellitus with complication, without long-term current use of insulin Hyperlipidemia, unspecified hyperlipidemia type documented in this encounter Care Teams Control Cabinet Assembler Relationship Specialty Start Date End Date Adeola Villegas APRN PCP - General Family Medicine 01/13/17 02/05/19 documented as of this encounter
--- OUTSIDE RECORDS SUMMARY | 2024-12-05 12:44 | XMS_ITS | Encounter Summary ---
Author Organization [facility] [place] [address] Care Team Providers Care Cosmetic Maker Name Role Phone Evangelist Carter MD Primary Care Provider [phone] Encounter Details Date Type Department Care Team (Late st Contact Info) Description 08/15/2015 Orders [place] [address] Dagoberto Angeles M, COOK DESSERT Sciatica, unspecified laterality Social History Tobacco Use Types Packs/Day Years Used Date Smoking Tobacco: Every Day Cigarettes Smokeless Tobacco: Never Sex and Gender Information Value Date Recorded Sex Assigned at Not on file Gender Identity Not on file Sexual Orientation Not on file documented as of this encounter Progress Notes * Sugar Rollins RN - 08/15/2015 10:56 AM EDT Xray order placed per surgeon's request; study to be performed pre visit to facilitate surgical opinion. documented in this encounter Plan of Treatment Not on file documented as of this encounter Visit Diagnoses Diagnosis Sciatica, unspecified laterality documented in this encounter Care Teams Cosmetic Maker Relationship Specialty Start Date End Date Evangelist Carter MD PCP - General 04/30/15 01/12/17 documented as of this encounter
--- OUTSIDE RECORDS SUMMARY | 2024-12-05 12:44 | XMS_ITS | Encounter Summary ---
Author Organization [facility] Address [facility] [place] [address] Care Team Providers Care Grading Supervisor Name Role Phone Adeola Villegas APRN Primary Care Provider Reason for Referral * Consultation (Routine) - Closed Specialty Diagnoses / Procedures Referred By Nader pena Referred To Contact Transplant Diagnoses Stage 4 chronic kidney disease Procedures TXP Leelee Sumner MD [facility] [place] [address] Kiel Paulson MD [facility] [place] [address] Referral ID Status Reason Start Date Expiration Date V isits Requested Visits Authorized [id number] Closed Consult, Test & Treat 04/07/2018 04/07/2019 1 1 Reason for Visit * Consultation (Urgent) - Closed Specialty Diagnoses / Procedures Referred By Nader pena Referred To Contact Nephrology Diagnoses CKD, stage 3 Adeola Villegas APRN [address] [place] [address] [address] [facility] [address] [place] [id number] Referral ID Status Reason Start Date Expiration Date V isits Requested Visits Authorized [id number] Closed Consult, Test & Treat [facility] 02/22/2018 02/22/2019 1 1 Encounter Details Date Type Department Care Team (Latest Contact Info) Description 04/07/2018 2:00 PM EDT Office Visit Nephrology [place] [address] Felton Lugo MD [facility] [place] [address] Leelee Edge MD Type 2 diabetes mellitus without complication, with long-term current use of insulin; Stage 4 chronic kidney disease; Vitamin D deficiency; Anemia of chronic disease Social History Tobacco Use Types Packs/Day Years Used Date Smoking Tobacco: Every Day Cigarettes Smokeless Tobacco: Never Sex and Gender Information Value Date Recorded Sex Assigned at Not on file Gender Identity Not on file Sexual Orientation Not on file documented as of this encounter Last Filed Vital Signs Vital Sign Reading Time Taken Comments Blood Pressure 114/56 04/07/2018 9:02 AM EDT Pulse 64 04/07/2018 9:02 AM EDT Temperature - - Respiratory Rate - - Oxygen Saturation - - Inhaled Oxygen Concentration - - Weight 95.7 kg (211 lb) 04/07/2018 9:02 AM EDT Height 176.5 cm (5' 9.5) 04/07/2018 9:02 AM EDT Body Mass Index 30.71 04/07/2018 9:02 AM EDT documented in this encounter Patient Instructions * Patient Instructions* Leelee Edge MD - 04/07/2018 2:00 PM EDT Discuss with PCP about stopping metformin and incresaing insulins Will prescribe Tums with meals Will follow up in CKD clinic in 2/3 months documented in this encounter Progress Notes * Marichuy So, VIDYA - 04/07/2018 2:00 PM EDT O. Asked to see patient by Dr Edge for CKD education. This is his first contact with [facility]. Patient states he has known he has had kidney issues for the last 2 years. 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 Patient does have STD insurance that covers 60% of a set base but patient states that the amount is not sufficient to meet daily needs. Patient expressed concern for financial implications of renal replacement. therapy. Given the rate of decline in kidney function, it is time to learn more about kidney replacement therapy. Take a look at the options that are available if your kidney fail and you need dialysis or a transplant. There are two forms of dialysis: hemodialysis and peritoneal dialysis. Hemodialysis can be done in center or at home. Peritoneal dialysis is always done at home by you. You do not need dialysis now but time to learn more about which type and where you would want to do your dialysis. He is right handed and will begin to save his left arm from venipuncture. Patient has elevated potassium level today. Education today for high potassium level. Discussed need to limit high potassium foods in the diet. Pt and erine state they have a list on their refrigerator of foods to avoid. Pt reports he really likes potatoes. Potatoes have a lot of potassium in them. You can reduce the potassium in them by peeling the skins, cutting the potato into many cubes, soaking them over night in water and draining the water. Boil the potatos in fresh water and enjoy! Ptis current tobacco user and is not ready to quit. Encouraged to consider smoking cessation as it will improve kidney function and will be required pre-transplant. Dose reduction encouraged. 04/07/18 1500 Any new barriers to care? Any new barriers to care? N Advance Directive Does pt have advance directive No Patient Educated Other (not yet) Statement of Treatment Preference Form Completed No Functional Status Current Ambulation 0-->independent Transferring 0-->independent Toileting 0-->independent Bathing 0-->independent Dressing 0-->independent Eating 0-->independent Communication 0-->understands/communicates without difficulty Swallowing 0-->swallows foods/liquids without difficulty Activity Tolerance Current Activity Limitations none Current Activity Tolerance good IADL Medications independent Meal Preparation independent Housekeeping independent Laundry independent Shopping independent Oral Care independent Health How has your health been in the past 4 weeks? Answered by patient good Number of Emergency Dept visits in the past 12 months? 1 Number of hospital admissions in the past 12 months? 0 Number of SNF visits in the past 12 months? 0 Understanding of Disease/Condition Education Basic Understanding Do you feel you could manage your health care? (worried that he will not be able to work and pay loans) Patient Interview Data In the past 7 days, how would you rate your PAIN on average? 3 In the past 7 days, how would you rate your PHYSICAL HEALTH? Good In the past 7 days, how would you rate your MENTAL HEALTH, including your mood and your ability to think? Excellent Congestive Heart Failure Are you experiencing edema? Feet edema;Leg edema Are you experiencing shortness of breath? With exertion Has there been a change in the number of pillows or degree of recline during sleep? No change Are you experiencing chest pain and/or palpatations? Yes, but no change Are you experiencing a cough? Yes but no change Are you experiencing fatigue? No change (some days better than others) Are you experiencing lightheadedness or dizziness? 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 ) Source of Income salary/wages Financial Concerns: Difficulty with Healthcare Support system/social/legal status Lives With sibling(s);significant other A: Patient appeared somewhat overwhelmed by the amount of information obtained today, both in education and in clinical progression. Pt will need reinforcement of education. Patient received the Options DVD as well as the AAKP Phase 1. Patient given the paperwork for Needed Services to review and file if desired P: Follow up blood work in 1 month at [facility]. Continue Care Management services for education, support and need identification. Anticipate referral to Transplant Class. Patient will limit foodsthat are high in potassium. Patient to consider readiness for additional smoking cessation education. * Leelee Edge MD - 04/07/2018 2:00 PM EDT HYPERTENSION/ NEPHROLOGY CONSULT PATIENT: Gerson Bruner : 1965 REASON FOR CONSULTATION: Referred for follow up ID: Mr. Gerson Hanson is a 51-year-old male with a history of CKD stage III secondary to long-term diabetes was here at the renal clinic for follow-up. Interval history: His CKD is gradually progressing in spite of good control of sugars and blood pressures. He is feeling more tired recently and have chronic ankle swellings which are becoming worse during evenings. He got his ingrown nail removed 3 days ago and was prescribed ciprofloxacin for 7 days. He denied any hospitalizations or change in the medications or allergies. He denied any urinaryproblems like frequency, urgency, blood in the urine or froth in the urine. Patient has been tryingto eat healthier but is unable to do enough exercise on a daily basis.He denied using OTC medications nor NSAID's. Past Medical History: Diagnosis Date ??? Diabetes mellitus ??? 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 Family History Problem Relation Age of Onset ??? Diabetes Mother ??? Cancer Father ??? Diabetes Paternal Grandmother ??? 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 Outpatient medications: Current Outpatient Prescriptions on File Prior to Visit Medication Sig Dispense Refill ??? pregabalin (LYRICA) 100 mg Capsule Take 100 mg by mouth 2 times daily. ??? metFORMIN (GLUCOPHAGE) 500 mg Tablet Take 500 mg by mouth 2 times daily (with meals). 0 ??? LANTUS SOLOSTAR Insulin Pen 0 ??? lisinopril (PRINIVIL;ZESTRIL) 10 mg Tablet Take 10 mg by mouth daily. ??? multivitamin (THERAGRAN) Tablet Take 1 tablet by mouth daily. ??? furosemide (LASIX) 40 mg Tablet Take 1 tablet by mouth daily. 30 tablet 12 ??? Insulin [place], Disposable, 31 X 5/16 Needle Inject 1 [...] facility-administered medications on file prior to visit. MEDICATIONS: Allergies Allergen Reactions ??? Clindamycin Swelling. ??? Gabapentin swelling ??? Penicillins CIS - Unknown ROS: Constitutional - No fevers, chills, feeling tired and no energy Skin - No rash or itchy skin HEENT - No headaches, visual changes Resp - No cough, shortness of breath CV - No chest pain, have chronic leg swelling, no difficulty breathing lying flat GI - No nausea, vomiting,change in bowel habits/abdominal pain - No change in urine output. No pain urinating or blood in urine. Neuro -generalized weakness. Have a peripheral neuropathy PHYSICAL EXAM: Last value Range last 24 hrs Temperature Temp: -- Heart Rate Heart Rate: 64 Heart Rate: -- Blood Pressure BP: 114/56 BP: -- Respiratory Rate Resp: -- SpO2 SpO2: -- Appearance - Alert, Comfortable. Skin - No exanthem. HEENT - Sclera white. Mucous membranes moist. Chest: Lungs clear to ausculatation w/o wheezes/ rhonchi/ crackles. Heart - S1 and S2 clear w/o murmur, gallop, or rub. JVP not elevated. Abd - Soft. + BS. No bruit. Non tender. Ext - Warm. No cyanosis. Trace dependent edema. Neuro - No asterixis. STUDIES: Labs: CBC: Recent Labs 04/07/18 1310 WBC 6.7 HGB 10.2* PLATELET 226 Chemistry: Recent Labs 04/07/18 1310 NA 141 K 5.4* CL 107 CO2 23 BUN 70* CREATININE 3.72* GLUCOSE 40* Recent Labs 04/07/18 1310 CALCIUM 9.2 PHOS 4.8* LFT's: Recent Labs 04/07/18 1310 ALBUMIN 3.7 IMPRESSION/ RECOMMENDATIONS:Mr. Gerson Hanson is a 51-year-old male with a history of CKD stage 4 secondary to long-term diabetes was here at the renal clinic for follow-up. CKD stage -4 : -Have progressive CKD (2.43-->3.72) due to alf diabetes and hypertension -Gradual worsening proteinuria from 0.5-->1.3,paraproteinemia work up so far is negative. -Renal ultrasound(2017) showed no obstruction/stones /structural lesions prior -Urine analysis showing +1protein and trace blood and microscopy showing few hyaline /granular casts but no crystals or cells. 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 BMD: -Calcium levels at goal,phos is elevated and PTH is in normal range for CKD-4 -Recommended Tums with meals to help as phos binder. Anemia: Iron deficiency anemia and anemia due to CKD Need iron supplementation as po pills to help in anemia management,also informed to discuss with PCP about colonoscopy Hypertension: Well controlled on current regimen ,lisinopril 10mg and lasix 40mg Continue with current regimen Hyperkalemia: Potassium is better controlled than prior 5.9-->5.4 Due to CKD and also more dietary intake Discussed about diets that have more potassium like oranges,tomatos ,potatos and recommended to keep an eye on intake. DM-2: Was hypoglycemic on labs-40 ,but asymptomatic with repeat BG-80(lab drawn on fasting and gave orange juice) Well controlled on current regimen of insulin and metformin But metformin is contraindicated with GFR<30 ,recommended to stop and discuss with PCP about alternative regimens. RTC in 3 months and labs in one month Thanks for letting us participate in the care of this patient. Seen and Discussed w/ Dr. Parish Edge MD Nephrology Fellow #[id number] * Felton Lugo MD - 04/07/2018 2:00 PM EDT Renal Staff Addendum Patient seen and examined with Dr. Edge. I agree with the above note which represents our joint assessment and plan. documented in this encounter Plan of Treatment Scheduled Referrals Name Type Priority Associated Diagnoses Order Schedule Referral to Transplant Services Outpatient Referral Routine Stage 4 chronic kidney disease Ordered: 04/07/2018 documented as of this encounter Procedures Procedure Name Priority Date/Time Associated Diagnosis Comments URINALYSIS MICROSCOPIC EXAM STAT 04/07/2018 3:00 PM EDT PROTEIN/CREATININE RATIO, URINE Routine 04/07/2018 3:00 PM EDT Stage 4 chronic kidney disease PROTEIN ELECTROPHORESIS, URINE, RANDOM Routine 04/07/2018 3:00 PM EDT Stage 4 chronic kidney disease URINALYSIS WITH REFLEX CULTURE STAT 04/07/2018 3:00 PM EDT Stage 4 chronic kidney disease documented in this encounter Results * (ABNORMAL) Urinalysis Microscopic Exam (04/07/2018 3:00 PM EDT) RBC, Urine <1 0 - 3 /HPF [facility] WBC, Urine 0 0 - 3 /HPF [facility] Hyaline Casts, Urine 4(H) 0 - 2 /LPF [facility] Urine specimen (specimen) 04/07/2018 3:00 PM EDT 04/07/2018 5:50 PM EDT Narrative Resulting Agency Comment Spec In Lab Leelee Edge MD URINE ORDERABLES Performing Organization Address City/[facility] Co de Phone Number [facility] [place] [address] * (ABNORMAL) Protein Electrophoresis, urine, random (04/07/2018 3:00 PM EDT) Protein, Urine 70(H) 0 - 12 mg/dL [facility] U Albumin 77 % total [facility] Globulin, Urine 23 % total [facility] M1 Band, Urine None Detected [facility] UPEP Comments See Note [facility] Comment: There is no evidence of clonal free light chains in this patient's urine sample. Urine specimen (specimen) 04/07/2018 3:00 PM EDT 04/07/2018 4:33 PM EDT Narrative Resulting Agency Comment Spec In Lab Felton Lugo MD URINE ORDERABLES Performing Organization Address City/[facility]/ZIP Co de Phone Number [facility] [place] [address] * (ABNORMAL) Protein/Creatinine Ratio, urine (04/07/2018 3:00 PM EDT) Creatinine, Urine 55 mg/dL [facility] Protein, Urine 70(H) 0 - 12 mg/dL [facility] Protein / Creatinine Ratio, Urine 1.3 ratio [facility] Urine specimen (specimen) 04/07/2018 3:00 PM EDT 04/07/2018 4:33 PM EDT Narrative Resulting Agency Comment Spec In Lab Felton Lugo MD URINE ORDERABLES Performing Organization Address [facility] Co de Phone Number [facility] [place] [address] * (ABNORMAL) Urinalysis with reflex Culture (04/07/2018 3:00 PM EDT) Glucose, Urine Dipstick Negative Negative mg/dL [facility] Protein, Urine Dipstick 100(A) Negative mg/dL [facility] Bilirubin, Urine Dipstick Negative Negative mg/dL [facility] Comment: Clinical correlation required for positive Urine Bilirubin results as false positive may occur with some drugs and drug related products. If a false positive is suspected a serum total bilirubin should be considered if clinically indicated. Urobilinogen, Urine Dipstick Normal Normal mg/dL [facility] pH, Urn (dipstick) 5.0 5.0 - 8.0 [facility] Blood, Urine Dipstick Negative Negative mg/dL [facility] Ketone, Urine Dipstick Negative Negative mg/dL [facility] Nitrite, Urine Dipstick Negative Negative [facility] Leukocytes, Urine Dipstick Negative Negative [facility] Appearance, Urine Dipstick Clear Clear [facility] Specific [place] Urine Automated 1.011 1.002 - 1.030 [facility] Color, Urine Dipstick Yellow Yellow [facility] Reflex to Culture No [facility] Urine specimen (specimen) 04/07/2018 3:00 PM EDT 04/07/2018 5:50 PM EDT Narrative Resulting Agency Comment Spec In Lab Felton Lugo MD URINE ORDERABLES Performing Organization Address City/State/[facility] Co de Phone Number [facility] [place] [address] * (ABNORMAL) Hemoglobin A1c (04/07/2018 1:10 PM [...] Mellitus, Diabetes Care 2013; 36: Suppl. 1, S67-50 Estimated Average Glucose 166 mg/dL [facility] [...] into estimated average glucose values. ??Diabetes Care 2008:31(8):6441-9433. Blood specimen (specimen) 04/07/2018 1:10 PM EDT 04/07/2018 1:19 PM EDT Narrative Resulting Agency Comment Spec In Lab Felton Lugo MD CHEMISTRY ORDERABLES Performing Organization Address [facility] Co de Phone Number [facility] [place] [address] * Vitamin D, 25-Hydroxy (04/07/2018 1:10 PM [...] be considered to be insufficient or deficient. [email or web address] The [employer] i[employer] Vitamin D Immunoassay detects both 25-OH Vitamin D2 and 25-OH Vitamin D3, but only a total Vitamin D concentration is reported. Blood specimen (specimen) 04/07/2018 1:10 PM EDT 04/08/2018 7:32 AM EDT Narrative Resulting Agency Comment Spec In Lab Felton Lugo MD CHEMISTRY ORDERABLES Performing Organization Address [facility]/ZIP Co de Phone Number [facility] [place] [address] * (ABNORMAL) Phosphorus (04/07/2018 1:10 PM EDT) Phosphorus 4.8(H) 2.5 - 4.5 mg/dL [facility] Blood specimen (specimen) 04/07/2018 1:10 PM EDT 04/07/2018 1:19 PM EDT Narrative Resulting Agency Comment Spec In Lab Felton Lugo MD CHEMISTRY ORDERABLES Performing Organization Address City/[facility] Co de Phone Number [facility] [place] [address] * Albumin Level (04/07/2018 1:10 PM EDT) [facility] Albumin 3.7 3.2 - 5.2 gm/dL [facility] Blood specimen (specimen) 04/07/2018 1:10 PM EDT 04/07/2018 1:19 PM EDT Narrative Resulting Agency Comment Spec In Lab Felton Lugo MD CHEMISTRY ORDERABLES Performing Organization Address [facility] Co de Phone Number [facility] [place] [address] * Ferritin (04/07/2018 1:10 PM EDT) [facility] Ferritin 83 30 - 400 ng/mL [facility] Comment: Pediatric reference ranges not verified at [facility], interpret with caution. Reference ranges for females greater than 50 years of age approach values for men, i.e., 30-400 ng/mL. Blood specimen (specimen) 04/07/2018 1:10 PM EDT 04/07/2018 1:19 PM EDT Narrative Resulting Agency Comment Spec In Lab Felton Lugo MD CHEMISTRY ORDERABLES Performing Organization Address [facility] Co de Phone Number [facility] [place] [address] * (ABNORMAL) Iron and TIBC (04/07/2018 1:10 PM EDT) [facility] Iron 59 45 - 160 mcg/dL [facility] TIBC 244(L) 250 - 450 mcg/dL [facility] Iron Saturation 24 20 - 50 % [facility] Blood specimen (specimen) 04/07/2018 1:10 PM EDT 04/07/2018 1:19 PM EDT Narrative Resulting Agency Comment Spec In Lab Fetlon Lugo MD CHEMISTRY ORDERABLES [facility] [place] [address] * (ABNORMAL) Basic Metabolic Panel (non-fasting) (04/07/2018 1:10 PM EDT) Glucose 40(Critic al) 65 - 199 mg/dL [...] of body mass or the acutely ill. [email or web address] eGFR 21(L) >=60 mL/min/1. 73 m?? [facility] Comment: The eGFR was calculated using the CKD-EPI equation. As with all creatinine based estimates of kidney function, eGFR values calculated with the CKD-EPI equation are not accurate in patients with acute kidney failure, extremes of body mass or the acutely ill. [email or web address] Blood specimen (specimen) 04/07/2018 1:10 PM EDT 04/07/2018 1:19 PM EDT Narrative Resulting Agency Comment Spec In Lab Felton Lugo MD CHEMISTRY ORDERABLES Performing Organization Address City/State/[facility] Co de Phone Number [facility] [place] [address] documented in this encounter Visit Diagnoses Diagnosis Type 2 diabetes mellitus without complication, with long-term current use of insulin Stage 4 chronic kidney disease Vitamin D deficiency Unspecified vitamin D deficiency Anemia of chronic disease Anemia of other chronic disease documented in this encounter Care Teams Grading Supervisor Relationship Specialty Start Date End Date Adeola Villegas APRN PCP - General Family Medicine 01/13/17 02/05/19 documented as of this encounter
--- OUTSIDE RECORDS SUMMARY | 2024-12-05 12:44 | XMS_ITS | Encounter Summary ---
[place] [address] Care Team Providers Care Chief Medical Director Name Role Phone Evangelist Carter MD Primary Care Provider [phone] Reason for Visit * Reason Comments Low Back Pain With Radicular Pain LEFT s bernardino Encounter Details Date Type Department Care Team (Latest Contact Info) Description 08/16/2015 8:40 AM EDT Office [place] [phone] Osiel Falk MD Herniation of lumbar intervertebral disc with radiculopathy Social History Tobacco Use Types Packs/Day Years [...] - - Weight 90.7 kg (200 lb) 08/16/2015 8:21 AM EDT Height 176.5 cm (5' 9.5) 08/16/2015 8:21 AM EDT Body Mass Index 29.11 08/16/2015 8:21 AM EDT documented in this encounter Progress Notes * Osiel Falk MD - 08/16/2015 8:48 AM EDT Images from the original note were not included. Mr. Bruner is a 49-year-old gentleman seen today in the spine center consultation from Dr. Carter. He is seen and evaluated for left leg pain beginning in the low back, radiating to the buttock, posterior thigh, and posterolateral leg to the ankle. He has underlying diabetes with neuropathy in a stocking distribution. He notes no additional numbness in his legs with bilateral neuropathy. He has a nonfocal sense of weakness in his left leg globally. No focal weakness. 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 He has had healthcare educator, physical therapy, and narcotic medications, which I would not recommend. He has not had any injections. He is better with heat and worse in the morning when he first gets up or changing in positions. His review of systems is negative for GI, , or constitutional symptoms. By report in the medical record, he has uncontrolled diabetes. He smokes a pack of cigarettes per day. He is hard of hearing. His medication allergies include gabapentin causing swelling, clindamycin causing swelling, and penicillin with an unknown reaction. Height is 5 feet 10 inches, weight 200 pounds, and body mass index 29.2. He is accompanied by his . He is on Lyrica. This is a pleasant [id number] kind of gentleman. He moves normally about the office. His gait is normal. He can toe walk bilaterally. He is unable to heel walk bilaterally. He stands with a level pelvis and straight spine with only slight tenderness in the left sciatic notch. His lower extremity motor exam is notable for weakness of his bilateral EHLs graded 4/5. Dorsiflexion is grossly normal, perhaps a touch weak bilaterally. but this is borderline. Sensation is diminished globally below the knees in a stocking distribution consistent with his diabetes. He reports no change from this. His reflexes are absent at the knees and ankles. His straight leg raise test on the left is positive with pain radiating to the ankle. His calf musculature is soft bilaterally with tenderness bilaterally. He has no edema, atrophy, fasciculations, or spasticity. His MRI is reviewed from 08/01/2015 from [facility]. This demonstrates multilevel disk dehydration, small central disc bulge at L3-L4, likely noncontributed to his symptoms. At the L4-L5 level, he has a left-sided extruded dis; herniation, best seen on axial T2, image 11, series 6 and image 10, series 6. The disk herniation is medial to left L5 pedicle, which would pinch the L5 nerve root and be consistent with his symptoms. I really do not see any right-sided compression of any significance that can explain his right EHL weakness, which was found on repeated exam. IMPRESSION: Symptomatic left L5 radiculopathy superimposed upon uncontrolled diabetes and a significant smoking history. I reviewed all this with the patient and his . I recommended smoking cessation, diabetic control, getting off his narcotic medication, and trying the anti-inflammatory medication if possible. He would like to avoid surgery. He reports being a poor healer. Certainly, his risks of wound healing problems are elevated above average given his poorly-controlled diabetes and his smoking. I did recommend that he consider epidural steroid injections. These maybe able to be done in [facility] by Dr. Cabrera who I have copied on this letter. The patient is referred to shared decision making to review the educational decisionaide on disc herniation as surgery is an option for him should all medical management fail. I did review the technical aspects of surgery, the goals, recovery, rehabilitation issues, time out of work, and risks and complications with him and his for their consideration. He will let us know his preference for care. If he does wished to have the injections, I am hopeful that his primary care can schedule these with Dr. Cabrera in [facility] or here at the pain clinic and we can help as needed. Spine Center Response Trends Patient-reported scores: myD-H Spine Questionnaire responses 08/16/2015 Oswestry Disability Index (Range: 0-100) 17.77 documented in this encounter Plan of Treatment Not on file documented as of this encounter Visit Diagnoses Diagnosis Herniation of lumbar intervertebral disc with radiculopathy Intervertebral lumbar disc disorder with myelopathy, lumbar region documented in this encounter Care Teams Chief Medical Director Relationship Specialty Start Date End Date Evangelist Carter MD PCP - General 04/30/15 01/12/17 documented as of this encounter
--- OUTSIDE RECORDS SUMMARY | 2024-12-05 12:44 | XMS_ITS | Encounter Summary ---
Author Organization [facility] [place] [address] Care Team Providers Care Wind Energy Mechanic Name Role Phone Earle Young MD Primary Care Provider [phone] Reason for Visit * Reason Comments Diabetes Encounter Details Date Type Department Care Team (Late st Contact Info) Description 07/19/2014 10:00 AM EDT Office [place] [phone] Blanca Palomares APRN Type II or unspecified type diabetes mellitus with neurological manifestations, uncontrolled(250.62) (Primary Dx) Discharge Disposition: Home Social History [...] - - Weight 92.1 kg (203 lb) 07/19/2014 10:08 AM EDT Height - - Body Mass Index - - documented in this encounter Patient Instructions * Patient Instructions* Blanca Ruiz LPN - 07/19/2014 10:13 AM EDT I would like you to sign up for myD-H, which will give you secure online access to your electronic medical record at [facility] and the ability to communicate with your health care team whenand where it???s most convenient for you. With myD-H you will be able to: - look at parts of your medical record including test results and office notes - send and receive messages to/from me and your other providers - renew prescriptions - schedule appointments. To sign up, go to [email or web address] and click I have an activation code and follow the instructions. Here is your activation code: [email or web address] Expires: 09/02/2014 10:13 AM Remember, myD-H is NOT for urgent needs! Always dial 911 for medical emergencies. Dentist appointment Take 1 cup sugar free tonic water before bed Consider low dose lorazepam before bed to see if it helps relieve leg cramps Schedule colonoscopy Continue to attempt tobacco cessation Stop lantus Start mix insulin Start 20 units AM and PM before meals to try to keep glucose between 90-130 before meals Increase doses every couple days by 2 units to get glucose under 130 before meals Check glucose 1X/day and bring meter to appointments documented in this encounter Progress Notes * Blanca Palomares APRN - 07/19/2014 1:30 PM EDT DATE OF VISIT: 07/19/2014. REASON FOR VISIT: New patient to Endocrinology for type 2 DM in poor control. Also, tobacco use, neuropathy pain, and leg cramps. Reminder: the patient has hearing loss. BRIEF HISTORY: Presents and states his worse problem is his leg cramps and his feet pain. States he has tried gabapentin and he thinks he has tried Cymbalta, amitriptyline, and Lyrica, but states nothing helps. Also, he is reluctant to take pills because of the possible side effects. DATE OF DIAGNOSIS OF DIABETES: Approximately 28 years ago. Reviewed family history. Mother was diagnosed with diabetes when she was in her 60's. Father from rectal cancer. DIABETES REGIMEN: Lantus 45 units in p.m. States he took Humalog in the past, but then he had a low glucose level. SBGM: Not recently. He states he is not going to change anything whether he knows what the blood glucose number is or not. HABITS: Smokes one pack per day. He has been to the hypnotist twice. He was able to quit for two weeks. 24-HOUR MEAL PLAN: Breakfast is omitted or has one toast. Between 9 and 10 a.m., has one plain donut or pizza toast. Lunch is a ham or turkey sandwich. Evening meal was egg rolls and noodles. PREVENTION STRATEGIES: Simvastatin was recently stopped to see if the leg cramps lessened, which they did not. He does not take an JUAN inhibitor. He is due to go to the dentist. He has upper dentures and his own teeth on the bottom are in poor condition. He does have a dilated eye exam scheduled. REVIEW OF SYSTEMS: Depression and Mood: Rates his pain as an 8 on a scale of 1 to 10. Discusses how limiting the leg cramps are and the feet pain. At home is his girlfriend. 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 Eyes: No recent vision changes. No recent headaches or chest pain or shortness of breath. No recent GI symptoms except when he did start Zoloft he had some vomiting, but that has subsided. Extremities: With constant pain. Sleep Pattern: Depends how bad the leg cramps and feet pain are. PHYSICAL EXAM: Appearance: He appears in good health. He is overweight, 203 pounds. Blood pressure was taken, but unfortunately not recorded. Eyes: No retinopathy with panophthalmoscope. Neck: No thyromegaly or lymphadenopathy. Heart: Regular rate and rhythm. No murmurs. Lungs are clear to auscultation. Feet: Skin is normal. Pulses are normal. Neuro: Decreased sensation to 10 g of pressure from ankles distally. Hemoglobin A1c done recently at PCP office, 9%. IMPRESSION AND PLAN: Diabetes mellitus type 2, in poor control with complication of neuropathy. The patient agrees to check glucose levels at least once a day. Advised to check either before first meal of the day or before evening meal. Will stop Lantus and use mix insulin. Prescription sent for Humalog KwikPen 75/25, start 20 units twice a day, increase doses by 2 units every two days until glucose levels are under 130. The patient states he did recently stop drinking soda. Family history of rectal cancer. He states he is due for another colonoscopy; he did have one and had polyps removed. Also, he is concerned about some nontender lumps, one near his cervical spine and one on his left lower arm. He has been advised that they are most likely lipomas. Advised the patient if the Zoloft does not work to lessen the leg cramps, to consider low dose of lorazepam before bed. Also, advised to try one cup of sugar-free tonic water before bed. Also to consider an appointment referral to the pain clinic to help manage the pain. Tobacco use, he is in precontemplation phase of behavior change. Also, he has a lump under his tongue that comes and goes. He states he will contact his dentist. Advised the patient to look into hearing aids for his hearing loss; he states he has tried to do that, but he cannot afford them. Immunizations update, he states he recently did have the flu vaccine. This was a 47-minute office visit with 46 minutes spent counseling [id number] with the patient in the management of glucose levels, stopping Lantus and using mix insulin twice a day before meals, discussing treatment options for management of chronic leg cramps and neuropathy pain, assessing readiness for tobacco cessation, reviewing importance of lowering hemoglobin A1c closer to 7% to prevent further complications in the future. Gave him [facility] diabetes toolkit booklet. Reviewed other available medications to help lower hemoglobin A1c closer to target. Return to office in September. Will check hemoglobin A1c, HDL, DLDL, TSH, microalbumin, CMP, or the patient could have those results faxed to Endocrinology prior to the appointment if they have done recently at PCP office. documented in this encounter Plan of Treatment Not on file documented as of this encounter Visit Diagnoses Diagnosis Type II or unspecified type diabetes mellitus with neurological manifestations, uncontrolled(250.62)- Primary Type II or unspecified type diabetes mellitus with neurological manifestations, uncontrolled documented in this encounter Care Teams Wind Energy Mechanic Relationship Specialty Start Date End Date Earle Young MD [facility] [address] [place] [address] PCP - General 04/09/14 04/29/15 documented as of this encounter
--- OUTSIDE RECORDS SUMMARY | 2024-12-05 12:44 | XMS_ITS | Encounter Summary ---
Author Organization [facility] [place] [address] Care Team Providers Care Forming Machine Upkeep Mechanic Name Role Phone Evangelist Carter MD Primary Care Provider [phone] Encounter Details Date Type Department Care Team (Late st Contact Info) Description 05/25/2016 Telephone [place] [address] Lilia Peña Social History Tobacco Use Types Packs/Day Years Used Date Smoking Tobacco: Every Day Cigarettes Smokeless Tobacco: Never Sex and Gender Information Value Date Recorded Sex Assigned at Not on file Gender Identity Not on file Sexual Orientation Not on file documented as of this encounter Miscellaneous Notes * Telephone Encounter - Lilia Pizarro - 05/25/2016 1:42 PM EDT Spoke with patient and he stated he would call back and schedule a follow-up appointment. documented in this encounter Plan of Treatment Not on file documented as of this encounter Visit Diagnoses Not on filedocumented in this encounter Care Teams Forming Machine Upkeep Mechanic Relationship Specialty Start Date End Date Evangelist Carter MD PCP - General 04/30/15 01/12/17 documented as of this encounter
--- OUTSIDE RECORDS SUMMARY | 2024-12-05 12:44 | XMS_ITS | Encounter Summary ---
Author Organization [facility] Address [facility] [place] [address] Care Team Providers Care Sander Operator Name Role Phone Bakari Adeola Sanchez APRN Primary Care Provider [phone] Encounter Details Date Type Department Care Team (Late st Contact Info) Description 01/12/2017 Orders Only [place] [address] Sourav Jang DO CKD (chronic kidney disease) stage 3, GFR 30-59 ml/min; Essential hypertension; Type 2 diabetes mellitus with complication, unspecified group home insulin use status; Hyperparathyroidism Social History Tobacco Use Types Packs/Day Years Used Date Smoking Tobacco: Every Day Cigarettes Smokeless Tobacco: Never Sex and Gender Information Value Date Recorded Sex Assigned at Not on file Gender Identity Not on file Sexual Orientation Not on file documented as of this encounter Plan of Treatment Not on file documented as of this encounter Results * (ABNORMAL) Vitamin D, 25-Hydroxy (01/13/2017 12:21 PM EDT) Vitamin D Total 25 OH 20(L) 30 - 100 ng/mL [facility] Comment: Deficient <10 ng/mL Insufficient 10 to 29 ng/mL Sufficient 30 to 100 ng/mL Potential Intoxication >100 ng/mL According to the [place] National Osteoporosis Foundation, Vitamin D concentrations >30 ng/mL are sufficient to protect bone health. ??The National Kidney Foundation has similarly stated that patients with Vitamin D concentrations <30ng/mL should be considered to be insufficient or deficient. http://[employer]/[facility] – PRYORnatlkidneyfoundation http://[employer]/[facility] – PRYORVitD The IDS iSYS Vitamin D Immunoassay detects both 25-OH Vitamin D2 and 25-OH Vitamin D3, but only a total Vitamin D concentration is reported. Blood specimen (specimen) 01/13/2017 12:21 PM EDT 01/13/2017 1:47 PM EDT Narrative Resulting Agency Comment Spec In Lab Felton Lugo MD CHEMISTRY ORDERABLES [facility] [place] [address] * (ABNORMAL) Hemoglobin A1c (01/13/2017 12:21 PM EDT) Hemoglobin A1c 8.2(H) 4.3 - 5.6 % [facility] Comment: Reference Range: 4.3 - [...] 36: Suppl. 1, S67-74 Estimated Average Glucose 189 mg/dL [facility] Comment: eAG equivalents for HbA1c percentages: HbA1c(%) ?eAG(mg/dL) 6.0 ?126 6.5 ?140 7.0 ?154 7.5 ?169 8.0 ?183 8.5 ?197 9.0 ?212 9.5 ?226 10.0 ? 240 Limitations: The eAG calculation has not been validated on women, individuals below 18 years old and above 70 years old, and individuals with hemoglobinopathies. Additional resources are available on the ADA website: http://[employer].com/DHMCadacalc [place] CURTIS, Jagruti J, Coy R, et al. ??Translating the A1C assay into estimated average glucose values. ??Diabetes Care 2008:31(8):6853-7673. Blood specimen (specimen) 01/13/2017 12:21 PM EDT 01/13/2017 12:28 PM EDT Narrative Resulting Agency Comment Spec In Lab Felton Lugo MD CHEMISTRY ORDERABLES Performing Organization Address [facility] Co de Phone Number [facility] [place] [address] * Magnesium (01/13/2017 12:21 PM EDT) Magnesium 0.99 0.69 - 1.07 mmol/L [facility] Blood specimen (specimen) 01/13/2017 12:21 PM EDT 01/13/2017 12:28 PM EDT Narrative Resulting Agency Comment Spec In Lab Felton Lugo MD CHEMISTRY ORDERABLES Performing Organization Address [facility] de Phone Number [facility] [place] [address] * Phosphorus (01/13/2017 12:21 PM EDT) Phosphorus 4.2 2.5 - 4.5 mg/dL [facility] Blood specimen (specimen) 01/13/2017 12:21 PM EDT 01/13/2017 12:28 PM EDT Narrative Resulting Agency Comment Spec In Lab Felton Lugo MD CHEMISTRY ORDERABLES Performing Organization Address [facility] Co de Phone Number [facility] [place] [address] * (ABNORMAL) PTH (01/13/2017 12:21 PM EDT) Parathyroid Hormone 103(H) 15 - 65 pg/mL [facility] Blood specimen (specimen) 01/13/2017 12:21 PM EDT 01/13/2017 12:28 PM EDT Narrative Resulting Agency Comment Spec In Lab Felton Lugo MD CHEMISTRY ORDERABLES [facility] [place] [address] * (ABNORMAL) Comprehensive metabolic panel (non-fasting) (01/13/2017 12:21 PM EDT) Glucose 125 65 - 199 mg/dL [facility] Comment:Diabetes: >=200 mg/d L plus symptoms Blood Urea Nitrogen 53(H) 10 - 20 mg/dL [facility] Creatinine 2.43(H) 0.80 - 1.50 mg/dL [facility] Comment: Please note that the pediatric reference intervals supplied above were not validated at [facility]. Results from pediatric patients should be interpreted in conjunction to the patient's age, height and muscle mass. Sodium 144 135 - 145 mmol/L [facility] Potassium 5.9(H) 3.5 - 5.0 mmol/L [facility] Comment: Please note: ??Patients with WBC >100,000 may have falsely elevated Potassium levels. ??For accurate Potassium quantification in these patients send serum separator tube (gold top) for subsequent determinations. ??Contact the Clinical Chemistry Laboratory if there are any questions. Chloride 109(H) 98 - 107 mmol/L [facility] Carbon Dioxide 25 22 - 31 mmol/L [facility] Anion Gap 10 5 - 15 mmol/L [facility] Calcium 9.2 8.5 - 10.5 mg/dL [facility] Protein, Total 6.7 6.1 - 8.0 gm/dL [facility] Albumin 3.7 3.2 - 5.2 gm/dL [facility] Aspartate Aminotransferase 16 0 - 39 unit/L [facility] Alanine Aminotransferase 18 0 - 55 unit/L [facility] Alkaline Phosphatase 96 40 - 120 unit/L [facility] Bilirubin, Total 0.2 0.2 - 1.3 mg/dL [facility] Bilirubin, Direct <0.1 0.0 - 0.3 mg/dL [facility] Est Glomerular Filtration Rate 28(L) >=60 [facility] Comment: This estimated GFR (eGFR) [...] the following links into your internet browser. [email or web address]/DHnkdep [email or web address]/DHMCnkf Blood specimen (specimen) 01/13/2017 12:21 PM EDT 01/13/2017 12:28 PM EDT Narrative Resulting Agency Comment Spec In Lab Felton Lugo MD CHEMISTRY ORDERABLES [facility] [place] [address] documented in this encounter Visit Diagnoses Diagnosis CKD (chronic kidney disease) stage 3, GFR 30-59 ml/min Chronic kidney disease, Stage III (moderate) Essential hypertension Unspecified essential hypertension Type 2 diabetes mellitus with complication, unspecified moth exterminator insulin use status Hyperparathyroidism Hyperparathyroidism, unspecified documented in this encounter Care Teams Sander Operator Relationship Specialty Start Date End Date Adeola Villegas APRN PCP - General Family Medicine 01/13/17 02/05/19 documented as of this encounter
== END 2024-12-05 12:06 ==
PROVIDERS: PCP Student in an Organized Health Care Education/Training Program; Visit Provider Student in an Organized Health Care Education/Training Program
DX: M79.605 Pain in left leg (principal)
CPT/HCPCS: 93971